=== PATIENT | male | born 1940 | race Caucasian/White ===

== ENCOUNTER 2023-03-05 14:54 | Outpatient (OUT) | payer MEDICARE, OTHER, SELFPAY ==
[2023-03-05 15:16] LABS: Basophils Percent Auto 0.5 % (0.2-2.0); Eosinophils Absolute Auto 0.5 10^3/uL (0.0-0.7); Eosinophils Percent Auto 7.5 % (0.9-7.0); Hematocrit 42.7 % (42.0-54.0); Hemoglobin 13.6 g/dL (14.0-18.0); Immature Granulocytes Abs Auto 0.02 10^3/uL (0.00-0.03); Immature Granulocytes Pct Auto 0.3 % (0.0-0.5); Lymphocytes Absolute Auto 1.5 10^3/uL (1.2-3.8); Lymphocytes Percent Auto 23.6 % (20.5-60.0); Mean Corpuscular HGB Conc 31.9 g/dL (29.9-35.2); Mean Corpuscular Hemoglobin 29.4 pg (25.9-34.0); Mean Corpuscular Volume 92.2 fL (80.0-94.0); Mean Platelet Volume 10.3 fL (9.5-13.5); Monocytes Absolute Auto 0.6 10^3/uL (0.3-0.8); Monocytes Percent Auto 9.3 % (1.7-12.0); Neutrophils Absolute Auto 3.7 10^3/uL (1.4-6.5); Neutrophils Percent Auto 58.8 % (43.0-75.0); Platelet Count 148 10^3/uL (150-450); Red Blood Count 4.63 10^6/uL (4.70-6.10); Red Cell Distribution Width 13.6 % (11.0-15.0); White Blood Count 6.2 10^3/uL (4.0-11.0)
[2023-03-05 16:04] LABS: Alanine Aminotransferase 23 U/L (16-63); Albumin Globulin Ratio 0.8; Albumin Level 3.3 g/dL (3.4-5.0); Alkaline Phosphatase 117 U/L (46-116); Anion Gap 14.6; Aspartate Amino Transferase 26 U/L (15-37); BUN Creatinine Ratio 18.3; Bilirubin Total 0.7 mg/dL (0.2-1.0); Calcium 9.4 mg/dL (8.5-10.1); Carbon Dioxide 25.9 mmol/L (21.0-32.0); Chloride 103 mmol/L (98-107); Estimated GFR (African America 43 (>=60); Estimated GFR (Non-African Ame 35 (>=60); Globulin 4.2 g/dL; Glucose 100 mg/dL (74-106); Potassium 5.5 mmol/L (3.5-5.1); Sodium 138 mmol/L (136-145); Total Protein 7.5 g/dL (6.4-8.2)
[2023-03-05 16:13] LABS: Chol HDL Ratio 2.5; Cholesterol 130 mg/dL (<=200); Free T3 3.08 pg/mL (2.18-3.98); HDL Cholesterol 53 mg/dL (40-60); Thyroid Stimulating Hormone 0.254 uIU/mL (0.358-3.740); Triglycerides 75 mg/dL (<=150)
== END 2023-03-05 14:55 ==
LOC: LAB 14:58
PROVIDERS: PCP Family Medicine; Visit Provider Family Medicine
DX: E11.9 Type 2 diabetes mellitus without complications (principal); E78.5 Hyperlipidemia, unspecified; R53.83 Other fatigue; Z79.899 Other long term (current) drug therapy
CPT/HCPCS: 36415; 80053; 80061; 84436; 84443; 84481; 85025

== ENCOUNTER 2023-05-31 14:37 | Outpatient (OUT) | payer MEDICARE, OTHER, SELFPAY ==
[2023-05-31 15:17] LABS: Estimated Average Glucose 117 mg/dL; Glycohemoglobin A1C 5.7 % (4.5-6.2)
[2023-05-31 15:25] LABS: Basophils Absolute Auto 0.1 10^3/uL (0.0-0.1); Basophils Percent Auto 0.7 % (0.2-2.0); Eosinophils Absolute Auto 0.3 10^3/uL (0.0-0.7); Eosinophils Percent Auto 4.6 % (0.9-7.0); Hematocrit 39.9 % (42.0-54.0); Hemoglobin 12.3 g/dL (14.0-18.0); Immature Granulocytes Abs Auto 0.03 10^3/uL (0.00-0.03); Immature Granulocytes Pct Auto 0.4 % (0.0-0.5); Lymphocytes Absolute Auto 1.4 10^3/uL (1.2-3.8); Lymphocytes Percent Auto 20.4 % (20.5-60.0); Mean Corpuscular HGB Conc 30.8 g/dL (29.9-35.2); Mean Corpuscular Hemoglobin 29.1 pg (25.9-34.0); Mean Corpuscular Volume 94.5 fL (80.0-94.0); Mean Platelet Volume 10.6 fL (9.5-13.5); Monocytes Absolute Auto 0.6 10^3/uL (0.3-0.8); Monocytes Percent Auto 9.2 % (1.7-12.0); Neutrophils Absolute Auto 4.4 10^3/uL (1.4-6.5); Neutrophils Percent Auto 64.7 % (43.0-75.0); Platelet Count 161 10^3/uL (150-450); Red Blood Count 4.22 10^6/uL (4.70-6.10); Red Cell Distribution Width 14.5 % (11.0-15.0); White Blood Count 6.8 10^3/uL (4.0-11.0)
[2023-05-31 15:40] LABS: Free T4 0.72 ng/dL (0.76-1.46)
[2023-05-31 15:41] LABS: Alanine Aminotransferase 20 U/L (16-63); Albumin Globulin Ratio 0.9; Albumin Level 3.5 g/dL (3.4-5.0); Alkaline Phosphatase 107 U/L (46-116); Anion Gap 9.3; Aspartate Amino Transferase 22 U/L (15-37); BUN Creatinine Ratio 18.8; Bilirubin Total 0.7 mg/dL (0.2-1.0); Calcium 9.5 mg/dL (8.5-10.1); Carbon Dioxide 28.6 mmol/L (21.0-32.0); Chloride 105 mmol/L (98-107); Estimated GFR (African America 36 (>=60); Estimated GFR (Non-African Ame 30 (>=60); Globulin 3.8 g/dL; Glucose 99 mg/dL (74-106); Potassium 4.9 mmol/L (3.5-5.1); Sodium 138 mmol/L (136-145); Thyroid Stimulating Hormone 0.551 uIU/mL (0.358-3.740); Total Protein 7.3 g/dL (6.4-8.2)
== END 2023-05-31 14:38 | disposition home or self-care (01) ==
LOC: LAB 14:39
PROVIDERS: PCP Family Medicine; Visit Provider Family Medicine
DX: E87.5 Hyperkalemia (principal); C61 Malignant neoplasm of prostate; R73.09 Other abnormal glucose; Q75.2 Hypertelorism; I11.0 Hypertensive heart disease with heart failure; I50.30 Unspecified diastolic (congestive) heart failure
CPT/HCPCS: 36415; 80053; 83036; 83880; 84436; 84439; 84443; 85025

== ENCOUNTER 2023-07-18 16:32 | Outpatient (OUT) | payer MEDICARE, OTHER, SELFPAY ==
[2023-07-18 17:30] LABS: Anion Gap 12.1; BUN Creatinine Ratio 13.1; Carbon Dioxide 26.9 mmol/L (21.0-32.0); Chloride 104 mmol/L (98-107); Estimated GFR (African America 35 (>=60); Estimated GFR (Non-African Ame 29 (>=60); Glucose 101 mg/dL (74-106); Sodium 138 mmol/L (136-145)
== END 2023-07-18 16:33 | disposition home or self-care (01) ==
PROVIDERS: PCP Family Medicine; Visit Provider Family Medicine
DX: N18.1 Chronic kidney disease, stage 1 (principal)
CPT/HCPCS: 36415; 80048

== ENCOUNTER 2023-07-18 16:36 | Outpatient (OUT) | payer MEDICARE, OTHER, SELFPAY ==
[2023-07-18 17:40] LABS: Free T4 0.68 ng/dL (0.76-1.46)
[2023-07-18 17:47] LABS: Free T3 2.71 pg/mL (2.18-3.98); Thyroid Stimulating Hormone 0.897 uIU/mL (0.358-3.740)
== END 2023-07-18 16:37 | disposition home or self-care (01) ==
PROVIDERS: PCP Family Medicine
DX: E06.3 Autoimmune thyroiditis (principal); N18.1 Chronic kidney disease, stage 1
CPT/HCPCS: 36415; 80048; 84439; 84443; 84481

== ENCOUNTER 2023-08-19 16:18 | Outpatient (OUT) | payer MEDICARE, OTHER, SELFPAY ==
[2023-08-19 17:02] LABS: Basophils Percent Auto 0.4 % (0.2-2.0); Eosinophils Absolute Auto 0.3 10^3/uL (0.0-0.7); Eosinophils Percent Auto 4.7 % (0.9-7.0); Hematocrit 38.3 % (42.0-54.0); Hemoglobin 11.9 g/dL (14.0-18.0); Lymphocytes Absolute Auto 1.3 10^3/uL (1.2-3.8); Lymphocytes Percent Auto 23.2 % (20.5-60.0); Mean Corpuscular HGB Conc 31.1 g/dL (29.9-35.2); Mean Corpuscular Volume 93.4 fL (80.0-94.0); Mean Platelet Volume 10.7 fL (9.5-13.5); Monocytes Absolute Auto 0.6 10^3/uL (0.3-0.8); Neutrophils Absolute Auto 3.4 10^3/uL (1.4-6.5); Neutrophils Percent Auto 61.7 % (43.0-75.0); Platelet Count 145 10^3/uL (150-450); Red Cell Distribution Width 14.6 % (11.0-15.0); White Blood Count 5.5 10^3/uL (4.0-11.0)
--- NOTE | 2023-08-19 17:22 | XR_ITS ---
[facility] [id number] Patient Name: LANDEN ROTH MRN: [id number] date: 1940 Sex: M Assigned Patient Location: LAB Current Patient Location: Accession/Order Number: [id number] Exam Date: 08/19/2023 17:15 Report Date: 08/20/2023 09:21 At the request of: FRANCISCA THOMPSON Procedure: XR lumbar spine 2-3V EXAM: XR lumbar spine 2-3V HISTORY: e87.5 hyperkalemia COMPARISON: None. TECHNIQUE: 2 views Findings/impression: Retrolisthesis of L3 over L4 by 3 mm and L4 over L5 by 3 mm. Maintained vertebral body heights. Multilevel endplate degenerative changes, disc disease, and anterior spurring of L4 to S1. No acute fracture. Scattered calcified atherosclerotic disease of aorta. Probable infrarenal aortic aneurysm measuring up to 4.4 cm in diameter. Electronically authenticated by: SHERIE ROBLES Date: 08/20/2023 09:21
[2023-08-19 17:26] LABS: Alanine Aminotransferase 9 U/L (16-63); Albumin Globulin Ratio 0.9; Albumin Level 3.5 g/dL (3.4-5.0); Alkaline Phosphatase 110 U/L (46-116); Anion Gap 14.3; Aspartate Amino Transferase 19 U/L (15-37); BUN Creatinine Ratio 14.5; Bilirubin Total 1.1 mg/dL (0.2-1.0); Calcium 9.5 mg/dL (8.5-10.1); Chloride 104 mmol/L (98-107); Chol HDL Ratio 2.5; Cholesterol 115 mg/dL (<=200); Estimated GFR (African America 39 (>=60); Estimated GFR (Non-African Ame 32 (>=60); Glucose 100 mg/dL (74-106); HDL Cholesterol 46 mg/dL (40-60); LDL Cholesterol Calculated 58.6 mg/dL; Magnesium 1.9 mg/dL (1.8-2.4); Potassium 5.3 mmol/L (3.5-5.1); Sodium 138 mmol/L (136-145); Total Protein 7.5 g/dL (6.4-8.2); Triglycerides 52 mg/dL (<=150); VLDL CHOLESTEROL 10.4 mg/dL
[2023-08-28 22:11] LABS: Copper Level 143 ug/dL (69-132)
== END 2023-08-19 16:19 | disposition home or self-care (01) ==
PROVIDERS: PCP Family Medicine; Visit Provider Family Medicine
DX: E87.5 Hyperkalemia (principal); F32.9 Major depressive disorder, single episode, unspecified; E55.9 Vitamin D deficiency, unspecified; D64.9 Anemia, unspecified; E78.5 Hyperlipidemia, unspecified; M51.36 Other intervertebral disc degeneration, lumbar region
CPT/HCPCS: 36415; 72100; 80053; 80061; 82306; 82525; 82607; 82728; 82746; 83540; 83735; 85025

== ENCOUNTER 2023-09-26 13:57 | Outpatient (OUT) | payer MEDICARE, OTHER, SELFPAY ==
--- OUTSIDE RECORDS SUMMARY | 2023-09-26 14:05 | XMS_ITS | CCD ---
Author Name Unknown Address [address] [place] [address] Organization [facility] Care Team Providers Care Soap Mixer Name Role Phone Francisca Thompson MD Primary Care Provider [phone] Tom Gonzalez Unavailable SHARON HOOKS Referring Unavailable MARLENE KRISHNA Attending Unavailable NORMA ARORA Admitting Unavailable FRANCISCA THOMPSON Primary Care Unavailable Francisca Thompson MD Primary Care Provider [phone] Tom Gonzalez Unavailable MALAIKA FAUST Attending Unavailable MALAIKA FAUST Attending Unavailable Francisca Thompson MD Primary Care Provider [phone] Tom Gonzalez Unavailable [phone] DR FRANCISCA AYERS Primary Care Unavailable MALAIKA FAUST Consulting Unavailable MALAIKA FAUST Admitting Unavailable MALAIKA FAUST Attending Unavailable DONNA Qureshi, DR ESPINOSA Primary Care Unavailable DONNA Qureshi, DR ESPINOSA Admitting Unavailable DONNA Qureshi, DR ESPINOSA Consulting Unavailable DONNA Qureshi, DR ESPINOSA Attending Unavailable SHARON VAZQUEZ Attending Unavailable DONNA Qureshi, DR ESPINOSA Primary Care Unavailable JIM, DR AYANA Poe Consulting Unavailable SHARON VAZQUEZ Admitting Unavailable LINDA JUNIOR Consulting Unavailable SHARON VAZQUEZ Consulting Unavailable ARVIND, DR LUTZ Consulting Unavailable ARVIND, DR LUTZ Attending Unavailable DONNA Qureshi, DR ESPINOSA Primary Care Unavailable ARVIND, DR LUTZ Admitting Unavailable JIM, DR AYANA Poe Consulting Unavailable MISC, DR DURAN Admitting Unavailable MISC, DR DURAN Consulting Unavailable DONNA Qureshi, DR ESPINOSA Primary Care Unavailable MISC, DR DURAN Attending Unavailable DONNA Qureshi, DR ESPINOSA Primary Care Unavailable DONNA Qureshi, DR ESPINOSA Admitting Unavailable HOY ., DR ESPINOSA Consulting Unavailable HOY ., DR ESPINOSA Attending Unavailable ENGELER, DR MALAIKA Agee Consulting Unavailable ENGELER, DR MALAIKA Agee Attending Unavailable HOY ., DR ESPINOSA Primary Care Unavailable ENGELER, DR MALAIKA Agee Admitting Unavailable HOY ., DR ESPINOSA Primary Care Unavailable HOY ., DR ESPINOSA Consulting Unavailable MOUKARBEL, MALAIKA Admitting Unavailable MOUKARBEL, MALAIKA Attending Unavailable MOUKARBEL, MALAIKA Consulting Unavailable MOUKARBEL, MALAIKA Admitting Unavailable HOY ., DR ESPINOSA Primary Care Unavailable MOUKARBEL, MALAIKA Consulting Unavailable MOUKARBEL, MALAIKA Attending Unavailable MOUKARBEL, MALAIKA Admitting Unavailable HOY ., DR ESPINOSA Primary Care Unavailable MOUKARBEL, MALAIKA Consulting Unavailable MOUKARBEL, MALAIKA Attending Unavailable MOUKARBEL, MALAIKA Admitting Unavailable HOY ., DR ESPINOSA Primary Care Unavailable MOUKARBEL, MALAIKA Consulting Unavailable MOUKARBEL, MALAIKA Attending Unavailable HOY ., DR ESPINOSA Primary Care Unavailable MISC, DR DURAN Attending Unavailable MISC, DR DURAN Admitting Unavailable MISC, DR DURAN Consulting Unavailable HOY ., DR ESPINOSA Primary Care Unavailable HOY ., DR ESPINOSA Consulting Unavailable HOY ., DR ESPINOSA Attending Unavailable HOY ., DR ESPINOSA Admitting Unavailable HOY ., DR ESPINOSA Primary Care Unavailable HOY ., DR ESPINOSA Consulting Unavailable HOY ., DR ESPINOSA Admvonnie Unavailable HOY ., DR ESPINOSA Attending Unavailable MISC, DR DURAN Consulting Unavailable HOY ., DR ESPINOSA Primary Care Unavailable HOY ., DR ESPINOSA Admitting Unavailable HOY ., DR ESPINOSA Attending Unavailable HOY ., DR ESPINOSA Primary Care Unavailable MISC, DR DURAN Attending Unavailable MISC, DR DURAN Admitting Unavailable Andreas Del Cid MD Unavailable Tom Gonzalez Unavailable [phone] Andreas Del Cid MD Unavailable HOY, FRANCISCA M Primary Care Unavailable HOY, FRANCISCA M Primary Care Unavailable Yung KIM Attending Unavailable ANDREAS DEL CID Referring Unavailable HOY, FRANCISCA M Primary Care Unavailable ANDREAS DEL CID Referring Unavailable HOY, FRANCISCA M Primary Care Unavailable ANDREAS DEL CID Referring Unavailable HOY, FRANCISCA M Primary Care Unavailable ANDREAS DEL CID Attending Unavailable ANDREAS DEL CID Referring Unavailable HOY, FRANCISCA M Primary Care Unavailable HOY, FRANCISCA M Primary Care Unavailable ANDREAS DEL CID Referring Unavailable HOY, FRANCISCA M Primary Care Unavailable HOY, FRANCISCA M Primary Care Unavailable Yung KIM Attending Unavailable HOY, FRANCISCA M Primary Care Unavailable ANDREAS DEL CID Referring Unavailable HOY, FRANCISCA M Primary Care Unavailable ANDREAS DEL CID Referring Unavailable CREANDREAS WALTER Referring Unavailable HOY, FRANCISCA M Primary Care Unavailable HOY, FRANCISCA M Referring Unavailable CREANDREAS WALTER Attending Unavailable HOY, FRANCISCA M Primary Care Unavailable HOY, FRANCISCA M Primary Care Unavailable RADHA, VIRGIL Referring Unavailable ALISON WELLER Attending Unavailable Allergies Allergy Classification Reported Allergen(s) Allergy Type Date of Onset Reaction(s) Facility (20 sources) Adhesive Tape; Translations: [ADHESIVE TAPE (ROSINS)] Allergy to substance 06-16-2012 [facility] Work Phone: (20 sources) Latex; Translations: [LATEX] Drug Allergy 03-13-2019 [facility] (3 sources) Latex Drug allergy (disorder) 11-04-2013 [facility] Medications Current Medications Medication Drug Class(es) Dates Sig (Normalized) Sig (Original) dapagliflozin 10 mg oral tablet (20 sources) Sodium-Glucose Cotransporter 2 Inhibitor Start: 05-23-2022 End: 12-03-2023 take 1 tablet by mouth once daily FARXIGA 10 mg tablet Take 1 tablet by mouth once daily. 90 tablet 3 12/03/2022 12/03/2023 Active Comment on above: Take 10 mg by mouth once daily. Take 1 tablet by anuja th once daily. lisinopril 5 mg oral tablet (20 sources) Angiotensin Converting Enzyme Inhibitor Start: 06-13-2022 End: 08-22-2024 take 1 tablet by mouth once daily lisinopril (ZESTRIL) 5 mg tablet Take 1 tablet by mouth once daily. 90 tablet 3 08/23/2023 08/22/2024 Active Start: 04-11-2021 End: 06-06-2022 take 1 tablet by mouth once daily at bedtime lisinopril (ZESTRIL, PRINIVIL) 5 mg tablet Take 1 tablet by mouth daily at bedtime. 90 tablet 1 04/11/2021 06/06/2022 Discontinued (Course of therapy completed) Comment on above: Take 1 tablet by anuja th daily at bedtime. Take 1 tablet by anuja th once daily. perflutren lipid microspheres 1.3 mL in NaCl (PF) 0.9% 10 mL injection (DEFINITY) (20 sources) Start: 06-06-2022 End: 09-05-2023 perflutren lipid microspheres 1.3 mL in NaCl (PF) 0.9% 10 mL injection (DEFINITY) Start: 06-15-2021 End: 09-14-2022 perflutren lipid microsphere s 1.3 mL in NaCl (PF) 0.9% 10 mL injection (DEFINITY) 125 ml sodium chloride 9 mg/ ml prefilled syringe (20 sources) Start: 06-15-2021 End: 09-05-2023 sodium chloride 0.9 % (flush ) 10 mL (BD POSIFLUSH) Completed/Discontinued Medications Medication Drug Class(es) Dates Sig (Normalized) Sig (Original) acetaminophen 325 mg oral tablet (8 sources) Start: 07-03-2012 End: 06-06-2022 take 325-650 mg by mouth every four hours as needed acetaminophen 325 mg tablet Take 1-2 tablets by mouth every 4 hours as needed. 0 07/03/2012 06/06/2022 Discontinued Comment on above: Take 1-2 tablets by mouth every 4 hours as needed. apixaban 5 mg oral tablet (8 sources) Factor Xa Inhibitor Start: 08-24-2021 End: 06-06-2022 apixaban (ELIQUIS) 5 mg tab(s) Take 5 mg by mouth. 0 08/24/2021 06/06/2022 Discontinued Comment on above: Take 5 mg by mouth. Ascorbic Acid (20 sources) Vitamin C End: 10-25-2022 ascorbic acid (VITAMIN C ORAL) Take by mouth as needed. 0 10/25/2022 Discontinued (Course of therapy completed) ascorbic acid (V ITAMIN C ORAL) Take by mouth. 0 Active Comment on above: Take by mouth. Take by mouth as nee ded. aspirin 81 mg delayed release oral tablet (20 sources) Platelet Aggregation Inhibitor, Nonsteroidal Anti-inflammatory Drug take 1 tablet by mouth once daily aspirin, enteric coated (ASPIRIN, ENTERIC COATED) 81 mg EC tablet Take 1 tablet by mouth once daily. 0 Active Comment on above: Take 1 tablet by anuja th once daily. atorvastatin 40 mg oral tablet (20 sources) HMG-CoA Reductase Inhibitor Start: 02-19-20 19 take 1 tablet by mouth once daily at bedtime atorvastatin (LIPITOR) 40 mg tablet Take 40 mg by mouth daily at bedtime. 2 02/18/2019 Active Comment on above: Take 40 mg by mouth daily at bedtime. bicalutamide 50 mg oral tablet (8 sources) Androgen Receptor Inhibitor Start: 12-01-19 22 End: 06-06-20 22 take 1 tablet by mouth once daily bicalutamide (CASODEX) 50 mg tablet Take 1 tablet by mouth once daily. 30 tablet 2 11/30/2021 06/06/2022 Discontinued Comment on above: Take 1 tablet by anuja th once daily. cholecalciferol 0.025 mg oral capsule (20 sources) Vitamin D End: 10-25-19 23 Cholecalciferol, Vitamin D3, 25 mcg (1,000 unit) cap Take 1,000 Units by mouth as needed. 0 Active Cholecalciferol, Vitamin D3, 25 mcg (1,000 unit) cap Take 1,000 Units by mouth once daily. 2,000 0 Active Comment on above: Take 1,000 Units by mouth once daily. 2,000 Take 1,000 Units by mouth as needed. 2,000 Take 1,000 Units by mouth as needed. ezetimibe 10 mg oral tablet (20 sources) Dietary Cholesterol Absorption Inhibitor take 1 tablet by mouth once daily ezetimibe (ZETIA) 10 mg tablet Take 10 mg by mouth once daily. 0 Active Comment on above: Take 10 mg by mouth once daily. ferrous sulfate 325 mg oral tablet (11 sources) Start: 2 End: 3 take 1 tablet by mouth once daily FEROSUL 325 mg (65 mg iron) tablet Take 1 tablet by mouth once daily. 0 05/15/2022 10/02/2022 Discontinued (Course of therapy completed) Start: 05-15-2022 take 1 tablet by anuja th twice daily FEROSUL 325 mg (65 mg iron) tablet Take 1 tablet by mouth twice daily. 0 05/15/2022 Active Comment on above: Take 1 tablet by anuja th twice daily. Take 1 tablet by anuja th once daily. 24 hr metoprolol succinate 25 mg extended release oral tablet (20 sources) beta-Adrenergic Jasbir Start: 06-06-2022 End: 06-06-2023 take 1 tablet by mouth once daily metoprolol succinate ER (TOPROL XL) 25 mg 24 hr tablet Take 1 tablet by mouth once daily. 90 tablet 3 06/06/2022 Active Start: 06-01-2022 End: 06-06-2022 take 1 tablet by mouth once daily metoprolol tartrate, short acting, (LOPRESSOR) 25 mg tablet Take 1 tablet by mouth once daily. 0 06/01/2022 06/06/2022 Discontinued (Course of therapy completed) Comment on above: Take 25 mg by mouth once daily. Take 1 tablet by anuja th once daily. nitroglycerin 0.4 mg sublingual tablet (3 sources) Nitrate Vasodilator nitroglyceri n sublingual (NITROQUICK) 0.4 mg SL tablet as directed. 0 Active Comment on above: as directed. sildenafil 100 mg oral tablet (4 sources) Phosphodiesterase 5 Inhibitor Start: sildenafil (VIAGRA) 100 mg tablet Take 100 mg by mouth as needed. 0 12/07/2019 Active Comment on above: Take 100 mg by mouth as needed. spironolactone 25 mg oral tablet (20 sources) Aldosterone Antagonist Start: End: spironolactone (ALDACTONE) 25 mg tablet Take 12.5 mg by mouth once daily. 0 06/01/2022 04/26/2023 Discontinued (Discontinued by another Health Care Provider) Comment on above: Take 12.5 mg by mout h once daily. therapeutic multivitamin w/ iron (THERAGRAN-M) 27-0.4 mg tablet (17 sources) take 1 tablet by mouth once daily therapeutic multivitamin w/ iron (THERAGRAN-M) 27-0.4 mg tablet Take 1 tablet by mouth once daily. 0 Active Comment on above: Take 1 tablet by anuja th once daily. thyroid (mcc) 15 mg oral tablet (20 sources) Start: 023 GRADUATE RESEARCH ASSISTANT 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 0 03/26/2023 Active thyroid, pork, 6 0 mg tablet Take 75 mg by mouth once daily. 0 Active take 1 tablet by mouth once david y thyroid, pork, 60 mg tablet Take 60 mg by mouth once daily. 0 Active take 1 tablet by mouth once david y ARMOUR THYROID 90 mg tab Take 90 mg by mouth once daily. 0 Active Comment on above: Take 90 mg by mouth once daily. Take 60 mg by mouth once daily. Take 75 mg by mouth once daily. as directed. torsemide 10 mg oral tablet (20 sources) Loop Diuretic Start: 07-19-2022 End: 07-19-2023 take 1 tablet by mouth once daily torsemide (DEMADEX) 10 mg tablet Take 1 tablet by mouth once daily. 90 tablet 3 07/19/2022 Active Start: 11-08-2020 End: 06-06-2022 take 1 tablet by mouth once daily torsemide (DEMADEX) 10 mg tablet Take 1 tablet by mouth once daily. 90 tablet 1 11/08/2020 06/06/2022 Discontinued Comment on above: Take 1 tablet by anuja th once daily. Turmeric extract (20 sources) End: 10-25-2022 TURMERIC ORAL Take by mouth as needed. 0 10/25/2022 Discontinued (Course of therapy completed) TURMERIC ORAL Ta ke by mouth. 0 Active Comment on above: Take by mouth. Take by mouth as nee ded. ubidecarenone 10 mg oral capsule (20 sources) take 1 capsule by mouth once daily ubidecarenone Q-10 (COENZYME Q-10) 10 mg cap Take 10 mg by mouth once daily. 0 Active Comment on above: Take 10 mg by mouth once daily. Zinc (20 sources) End: ZINC ORAL Take by mouth. 0 10/25/2022 Discontinued (Course of therapy completed) ZINC ORAL Take b y mouth. 0 Active Comment on above: Take by mouth. Problems Active Problems Problem Classification Problem Date Documented Date Episodic/Chronic Acute cerebrovascular disease (18 sources) Cerebrovascular accident; Translations: [Other cerebral infarction] Onset: 09-03-2022 Chronic Cancer of prostate (20 sources) Malignant tumor of prostate; Translations: [Malignant neoplasm of prostate] Onset: 10-09-2017 Chronic Cardiac dysrhythmias (20 sources) Atrial fibrillation and flutter ; Translations: [Atrial fib/flutter, transient] Onset: 05-03-2012 Chronic Chronic kidney disease (1 source) Chronic kidney disease, unspecified; Translations: [CHRONIC KIDNEY DISEASE UNSPECIFIED] Onset: 05-18-2022 Chronic Complication of device; implant or graft (20 sources) Arteriosclerosis of coronary artery bypass graft; Translations: [Atherosclerosis of coronary artery bypass graft(s) without angina pectoris] Onset: 11-17-2012 Chronic Conduction disorders (1 source) Presence of automatic (implantable) cardiac defibrillator; Translations: [PRESENCE AUTO IMPLANT CARDIAC DEFIB] Onset: 07-10-2022 Chronic Congestive heart failure; nonhypertensive (20 sources) Acute systolic heart failure; Translations: [Acute systolic (congestive) heart failure] Onset: 05-01-2012 Chronic Coronary atherosclerosis and other heart disease (20 sources) Coronary atherosclerosis; Translations: [Atherosclerotic heart disease of [place] coronary artery without angina pectoris] Onset: 04-28-2012 09-11-2021 Chronic Diabetes mellitus with complications (6 sources) Type 2 diabetes mellitus; Translations: [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 kidney disease] Onset: 04-26-2023 04-26-2023 Chronic Disorders of lipid metabolism (20 sources) Hyperlipidemia; Translations: [Hyperlipidemia, unspecified] Onset: 04-28-2012 Chronic Esophageal disorders (1 source) Gastro-esophageal reflux disease without esophagitis; Translations: [GERD WITHOUT ESOPHAGITIS] Onset: 05-18-2022 Chronic Essential hypertension (1 source) Essential (primary) hypertension; Translations: [Essential hypertension] Onset: 06-12-2023 Chronic Heart valve disorders (1 source) Mitral valve regurgitation; Translations: [Nonrheumatic mitral (valve) insufficiency] Chronic Hypertension with complications and secondary hypertension (5 sources) Hypertensive heart disease with heart failure; Translations: [HTN HEART DISEASE W/HEART FAIL] Onset: 06-27-2022 Chronic Occlusion or stenosis of precerebral arteries (20 sources) Carotid artery stenosis; Translations: [Occlusion and stenosis of unspecified carotid artery] Onset: 05-01-2012 09-11-2021 Chronic Other screening for suspected conditions (not mental disorders or infectious disease) (1 source) Blood chemistry abnormal; Translations: [Abnormal finding of blood chemistry, unspecified] Episodic Peripheral and visceral atherosclerosis (20 sources) Peripheral vascular disease; Translations: [Peripheral vascular disease, unspecified] Onset: 11-17-2012 04-26-2023 Chronic Thyroid disorders (6 sources) Hypothyroidism; Translations: [Hypothyroidism, unspecified] Onset: 05-18-2022 Chronic Unclassified (20 sources) SUMMARY Onset: 04-28-2012 Unclassified (20 sources) Sweating; Translations: [Sweating] Onset: 11-17-2012 Unclassified (1 source) CONTACT W/AND (SUSP) EXPOS COVID-19; Translations: [CONTACT W/AND (SUSP) EXPOS COVID-19] Onset: 05-18-2022 Past or Other Problems Problem Classification Problem Date Documented Da te Episodic/Chronic Acute and unspecified renal failure (1 source) Acute kidney failure, unspecified; Translations: [ACUTE KIDNEY FAILURE UNSPECIFIED] Onset: 06-28-2022 Episodic Coronary atherosclerosis and other heart disease (3 sources) Presence of aortocoronary bypass graft; Translations: [Presence of coronary angioplasty implant and graft] Onset: 05-15-2022 Episodic Deficiency and other anemia (4 sources) Anemia, unspecified; Translations: [ANEMIA UNSPECIFIED] Onset: 05-14-2022 Episodic Fluid and electrolyte disorders (1 source) Dehydration; Translations: [DEHYDRATION] Onset: 05-18-2022 Episodic Malaise and fatigue (8 sources) Other fatigue; Translations: [Weakness] Onset: 05-15-2022 Episodic Other aftercare (1 source) Other custodial (current) drug therapy; Translations: [OTH POWERHOUSE MECHANIC CURRENT DRUG THERAPY] Onset: 05-18-2022 Episodic Other aftercare (1 source) correction (current) use of anticoagulants; Translations: [POWERHOUSE MECHANIC CURRNT USE ANTICOAGULANTS] Onset: 05-18-2022 Episodic Other circulatory disease (3 sources) Personal history of transient ischemic attack (TIA), and cerebral infarction without residual deficits; Translations: [Personal history of transient ischemic attack (TIA), and cerebral infarction without residual deficits] Onset: 07-10-2022 Episodic Other hematologic conditions (1 source) Other specified abnormalities of plasma proteins; Translations: [OTH SPEC ABNORM PLASMA PROTEINS] Onset: 05-18-2022 Episodic Screening and history of mental health and substance abuse codes (1 source) Personal history of nicotine dependence; Translations: [PERSONAL HISTORY OF NICOTINE DEPEND] Onset: 05-18-2022 Episodic Syncope (20 sources) Syncope; Translations: [Syncope and collapse] Onset: 03-18-2019 03-18-2019 Episodic Results Test Name Value Interpretation Reference Range Facility [facility] 08-27-2023 [facility] Telephone (CARIMN) JOSÉ MIGUEL ROTH JR. ([id number]) 1940 M Date Time Provider Department 08/27/23 VIRGIL GARCIA During your visit today, we recorded the following information about you: Glory Suejakob 08/27/2023 11:22 AM Signed Left a message with the patient regarding the cancellation of 10/22/2023 with . Informed the patient of the new scheduled appointment on 10/29/2023 with . Allergies As of Date: 08/27/2023 Noted Allergy Reaction LATEX 03/13/2019 2 - Rash ADHESIVE TAPE (ROSINS) 06/16/2012 2 - Rash Date Reviewed: 04/26/2023 Reviewed by: Jennifer Conway MA - Fully Assessed Reason for Visit: Appointment [[id number]] Cmt: Left a message with the patient regarding the cancellation of 10/22/2023 with . Informed the patient of the new scheduled appointment on 10/29/2023 with . Prescriptions as of 08/27/2023 - lisinopril (ZESTRIL) 5 mg tablet Take 1 tablet by mouth once daily. - Cholecalciferol, Vitamin D3, 25 mcg (1,000 unit) cap Take 1,000 Units by mouth as needed. - nitroglycerin sublingual (NITROQUICK) 0.4 mg SL tablet as directed. - GRADUATE RESEARCH ASSISTANT 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 - FARXIGA 10 mg tablet Take 1 tablet by mouth once daily. - therapeutic multivitamin w/ iron (THERAGRAN-M) 27-0.4 mg tablet Take 1 tablet by mouth once daily. - torsemide (DEMADEX) 10 mg tablet Take 1 tablet by mouth once daily. - aspirin, enteric coated (ASPIRIN, ENTERIC COATED) 81 mg EC tablet Take 1 tablet by mouth once daily. - ezetimibe (ZETIA) 10 mg tablet Take 10 mg by mouth once daily. - metoprolol succinate ER (TOPROL XL) 25 mg 24 hr tablet Take 1 tablet by mouth once daily. - ubidecarenone Q-10 (COENZYME Q-10) 10 mg cap Take 10 mg by mouth once daily. - thyroid, pork, 60 mg tablet Take 75 mg by mouth once daily. - atorvastatin (LIPITOR) 40 mg tablet Take 40 mg by mouth daily at bedtime. Facility-Administered Medications as of 08/27/2023 - perflutren lipid microspheres 1.3 mL in NaCl (PF) 0.9% 10 mL injection (DEFINITY) - sodium chloride 0.9 % (flush) 10 mL (BD POSIFLUSH) Meds Comments as of 08/04/2012: Medications verbally confirmed. Guy Fair LPN August 04, 2012 Problem List As Of Date 08/27/[address] elevation myocardial infarction (STEMI) of t*04/28/2012 05/05/2012 Atherosclerotic heart disease of [place] coronar* SUMMARY [V999.95] 04/28/2012 Wide-complex tachycardia [R00.0] 04/28/2012 05/05/2012 Pre-op evaluation [Z01.818] 04/28/2012 05/01/2012 Hyperlipidemia [E78.5] 04/28/2012 Preop testing [Z01.818] 04/29/2012 Stress hyperglycemia [R73.9] 05/01/2012 05/06/2012 Mechanically assisted ventilation [Z99.11] 05/01/2012 05/02/2012 Hypotension [I95.9] 05/01/2012 05/03/2012 Heart failure, acute systolic (HCC) [I50.21] 05/01/2012 Thrombocytopenia (HCC) [D69.6] 05/01/2012 05/05/2012 Post-operative pain [G89.18] 05/01/2012 05/06/2012 Carotid stenosis [I65.29] 05/01/2012 Atrial fib/flutter, transient 05/03/2012 Occlusion and stenosis of carotid artery withou*06/16/2012 S/P CABG (coronary artery bypass graft) [Z95.1] 06/17/2012 Sweating [YCO3829] 11/17/2012 CAD (coronary artery disease) of artery bypass *11/17/2012 Systolic heart failure (HCC) [I50.20] 11/17/2012 PVD (peripheral vascular disease) ([facility]) [I73.9] 11/17/2012 Prostate cancer ([facility]) [C61] 10/09/2017 Syncope [R55] 03/18/2019 Stroke (cerebrum) ([facility]) [I63.9] 09/03/2022 Chronic combined systolic and diastolic congest*09/03/2022 Carotid stenosis, asymptomatic, bilateral [I65.*09/03/2022 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 *04/26/2023 Encounter Status:Closed by CARINA SUE on 08/27/23 [facility] CNOVon 04-26-2023 CNOV Office Visit (CARIMN ) JOSÉ MIGUEL ROTH JR. ([id number]) 1940 Date Time Provider Department 04/26/23 3:00 PM ANDREAS DEL CID During your visit today, we recorded the following information about you: Pulse Respiration Blood pressure Weight 73/minute 12/minute 116/62 83.9 kg Height 1.829 m Andreas Del Cid MD 04/27/2023 12:57 PM [facility] [place] Jose Martin Silva Department of Cardiovascular Medicine SECTION OF CARDIOVASCULAR IMAGING OUTPATIENT VISIT DATE April 26, 2023 OUTPATIENT VISIT TYPE ESTABLISHED PRIMARY CARE PHYSICIAN: Francisca Thompson [address] [place] [address] REFERRING PHYSICIAN: Francisca Thompson [address] [facility] [phone] CHIEF COMPLAINT: Follow up HISTORY OF PRESENT ILLNESS: Mr. Roth is a 83 year old male who presents today for follow-up visit. His history is notable for: 1. CAD, h/o posterior STEMI c severe LAD disease, occluded Cx and RCA, s/p OTTO to LAD, SVG to PDA and SVG to OM. Coronary angiogram with patent OTTO to LAD, patent SVG to OM, and occluded SVG to RCA. 2. PAD s/p R CEA in 2011. 3. CKD. 4. Chronic systolic heart failure Since his last visit, he states that he is doing better. He is starting to become more active. He had to discontinue low-dose spironolactone due to being lightheaded, and was previously hypotensive with sacubitril/valsartan. He does not want to pursue left carotid endarterectomy at this time due to the fact that he is high risk. He denies chest pain, shortness of breath, orthopnea, cough, edema, palpitations, PND, lightheadedness or syncope. 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 ([facility]) 09/03/2022 Dyslipidemia GERD (gastroesophageal reflux disease) Heart failure, acute systolic ([facility]) Hypertension Hypothyroid Myocardial infarct, old Occlusion and stenosis of carotid artery without mention of cerebral infarction Prostate cancer ([facility]) 2020 PVD (peripheral vascular disease) ([facility]) 11/17/2012 Stroke (cerebrum) ([facility]) 09/03/2022 Systolic heart failure ([facility] [facility]) Thyroid disorder 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 kidney disease, unspecified CKD stage, unspecified whether intermodal customer service insulin use ([facility]) 04/26/2023 Ventricular tachycardia ([facility]) 04/28/2012 PAST SURGICAL HISTORY Procedure Laterality Date ANGIOGRAPHY, EXT CAROTID Right 2011 CABG (3) VEIN GRAFTS AND ARTERIAL GRAFT(S) 05/01/2012 Median sternotomy, coronary artery bypass grafting with in situ left internal thoracic artery to the LAD, and reverse saphenous vein graft to the posterior descending artery and obtuse marginal. HEART CATHETERIZATION SOCIAL HISTORY Social History Tobacco Use Smoking status: Former Packs/day: 1.00 Years: 10.00 Total pack years: 10.00 Types: Cigarettes, Pipe Quit date: 04/28/1982 Years since quittin.0 Smokeless tobacco: Never Vaping Use Vaping Use: Never used Substance Use Topics Alcohol use: Yes Comment: rarely Drug use: No FAMILY HISTORY Problem Relation Age of Onset Coronary Artery Disease Father Heart Attack Father fatal [place] at age 77 other (atrial fibrillation) Mother other (CHF) Mother other (Other) Mother at age 96 Ischemic Heart Disease Brother CABGx6 first at age 72 No Known Problems Daughter No Known Problems Daughter No Known Problems Daughter other (Other) Other paternal cousin at age 50 of [place] ALLERGIES: ALLERGIES Allergen Reactions Latex Rash Adhesive Tape (Keyanna* Rash MEDICATIONS: FARXIGA 10 mg tabletTake 1 tablet by mouth once daily.Disp: 90 tabletRfl: 3 therapeutic multivitamin w/ iron (THERAGRAN-M) 27-0.4 mg tabletTake 1 tablet by mouth once daily.Disp: Rfl: torsemide (DEMADEX) 10 mg tabletTake 1 tablet by mouth once daily.Disp: 90 tabletRfl: 3 lisinopril (ZESTRIL, PRINIVIL) 5 mg tabletTake 1 tablet by mouth once daily.Disp: 90 tabletRfl: 3 aspirin, enteric coated (ASPIRIN, ENTERIC COATED) 81 mg EC tabletTake 1 tablet by mouth once daily.Disp: Rfl: spironolactone (ALDACTONE) 25 mg tabletTake 12.5 mg by mouth once daily.Disp: Rfl: ezetimibe (ZETIA) 10 mg tabletTake 10 mg by mouth once daily.Disp: Rfl: metoprolol succinate ER (TOPROL XL) 25 mg 24 hr tabletTake 1 tablet by mouth once daily.Disp: 90 tabletRfl: 3 ubidecarenone Q-10 (COENZYME Q-10) 10 mg capTake 10 mg by mouth once daily.Disp: Rfl: thyroid, pork, 60 mg tabletTake 75 mg by mouth once daily.Disp: Rfl: atorvastatin (LIPITOR) 40 mg tabletTake 40 mg by mouth daily at bedtime.Disp: Rfl: 2 REVIEW OF SYSTEMS: GENERAL: Negative for: Weight loss or gain, Fever or Chills, Weakness and Sleep difficulties. HE (more content not included)... Normal [facility] ECG COMPLETEon 04-26-2023 ECG COMPLETE Ventricular Rate : 6 6 BPM Atrial Rate : 66 BPM P-R Interval : 180 ms QRS Duration : 114 ms Q-T Interval : 406 ms QTC Calculation(Bazett) : 425 ms Calculated P [place] : 39 degrees Calculated R [place] : -13 degrees Calculated T [place] : 87 degrees SINUS RHYTHM WITH SINUS ARRHYTHMIA WITH OCCASIONAL PREMATURE VENTRICULAR COMPLEXES CANNOT EXCLUDE OLD INTERIOR INFARCTION ABNORMAL ECG Confirmed by CARMELA CRYSTAL MD ([id number]) on 05/02/2023 7:31:47 PM NAME : JOSÉ MIGUEL ROTH PID : [id number] : 1940 Gender : Male Race : ORD : [id number] Procedure Date : Apr 26 2023 12:40:23 Edit Date : May 02 2023 19:31:54 Diagnosis: SINUS RHYTHM WITH SINUS ARRHYTHMIA WITH OCCASIONAL PREMATURE VENTRICULAR COMPLEXES CANNOT EXCLUDE OLD INTERIOR INFARCTION ABNORMAL ECG Confirmed by CARMELA CRYSTAL MD ([id number]) on 05/02/2023 7:31:47 PM Test Reason : Location : 314 : [facility] [id number] Overread By : CARMELA CRYSTAL MD Edited By : CARMELA CRYSTAL MD Referred By : ANDREAS DEL CID Acquired by : MAIKOL BURLESON [facility] ECHOon 04-26-2023 Echocardiography Echocardiography Rep ort: Transthoracic Echo [facility] J1-5 Date of service: 04/26/2023 1:20:02 PM FARMER Ordering physician: ANDREAS DEL CID Indication: Evaluation of known heart failure to guide therapy Technologist: Adama Avitia RVT Fellow: Osvaldo Jacob MD Interpreting physician: Velma Pope MD,PhD PATIENT: Name: MR. JOSÉ MIGUEL ROTH JR. : 1940 Age: 83 years Gender: M History of coronary artery disease, myocardial infarction, chronic kidney disease, dyslipidemia and hypertension. Previous cardiovascular interventions: CABG (2011) Dual chamber PPM-ICD (03/24/2019) Primary rhythm: sinus. Secondary rhythm: PVC. Height: 182.90 cm BSA: 2.06 m Weight: 83.92 kg BMI: 25.1 kg/m Heart rate 70 bpm Blood pressure 130/78 mmHg Color Doppler was utilized to interrogate the cardiac valves assessed and spectral Doppler was utilized to determine the flow velocities and pressure gradients reported in this exam. Myocardial strain analysis was performed in this exam to aid in the assessment of cardiac function. MEASUREMENTS: Value Indexed Normal Max aortic dimension 4.0 cm Ao < 3.8 Left atrial volume 66 ml (biplane A-L) 32 ml/m Colette <= 34 LV ID (diastole) 7.0 cm (2D) 3.37 cm/m LV ID (systole) 6.1 cm (2D) 2.97 cm/m IVS, leaflet tips 0.9 cm (2D) Posterior wall thickness 1.0 cm (2D) Left ventricular mass 291 g (2D) 141 g/m Global peak long strain -9.3 % LV stroke volume 73 ml (3D) LV end diastolic volume 305 ml (3D) 147.7 ml/m EDVi<=79 LV end systolic volume 232 ml (3D) 112.4 ml/m Ejection Fraction 24 % (3D) EF > 52 FINDINGS: LEFT VENTRICLE The left ventricle is dilated. Left ventricular systolic function is severely decreased. Global LV myocardial strain is abnormal. Left ventricular diastolic function was not evaluated due to >2+ MR. Wall Motion: The basal inferolateral segment and basal inferior segment are akinetic. The anterolateral wall and mid inferolateral segment are severely hypokinetic. The entire anterior wall, entire septum, entire apex, and mid and distal inferior wall are mildly hypokinetic. 3D data was obtained and analyzed to provide quantitative left ventricle measurements and assist with ventricular assessment. RIGHT VENTRICLE The right ventricle is normal in size. Pacer wires are noted in the right ventricle. Right ventricular systolic function is mildly decreased. Tricuspid annular displacement is 2.1 cm. Estimated right ventricular systolic pressure is not reported due to an insufficient tricuspid regurgitation signal. Estimated right atrial pressure is 3 mmHg based on IVC assessment. LEFT ATRIUM The left atrial cavity is normal in size. Pulmonary Veins: The pulmonary venous pattern showed blunted systolic flow. RIGHT ATRIUM The right atrial cavity is dilated. Pacer wires are noted in the right atrium. Inferior Vena Cava: The inferior vena cava appears normal measuring 1.7 cm. The vessel decreases greater than 50 percent with inspiration. MITRAL VALVE There is moderately severe (3+) holosystolic mitral valve regurgitation due to apical tethering of normal mitral leaflet caused by LV enlargement and restricted leaflet motion likely related to ischemic heart disease. There is a centrally directed regurgitant jet originating along the central aspect of the coaptation line. There is mild thickening. The pressure half time is 70 msec. The peak mitral E/A ratio is 1.11. The mitral flow deceleration time is 240 msec. TRICUSPID VALVE The tricuspid valve leaflets are structurally normal. There is trace (trace - 1+) tricuspid valve regurgitation. AORTIC VALVE There is trace aortic valve regurgitation. Tricuspid aortic valve. There is mild thickening. There is mild calcification. PULMONIC VALVE The pulmonic valve cusps are structurally normal. There is trace pulmonic valve regurgitation. AORTA The visualized aorta is borderline dilated. Measurements - Mid ascending aorta 4.0 cm. PULMONARY ARTERIES The pulmonary arteries are normal. INTERATRIAL SEPTUM There is no evidence of intracardiac shunting as detected by Doppler. INTERVENTRICULAR SEPTUM There is no flow through the interventricular septum as detected by Doppler. PERICARDIUM There is no pericardial effusion. There is an epicardial fat pad. CONCLUSIONS: - Exam indication: Evaluation of known heart failure to guide therapy - The left ventricle is dilated. Left ventricular systolic function is severely decreased. EF = 24 5% (3D) Left ventricular diastolic function was not evaluated due to >2+ MR. - The right ventricle is normal in size. Right ventricular systolic function is mildly decreased. - The right atrial cavity is dilated. - The visualized aorta is borderline dilated with a maximal dimension of 4.0 cm. - There is moderately severe (3+) holosystolic mitral valve regurgitation due to apical teth (more content not included)... Normal [facility] CNOVon 04-02-2023 CNOV Office Visit (RADTSA ) JOSÉ MIGUEL ROTH JR. 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 and repeat biopsy showing Thayer 7 (3+4) adenocarcinoma. RADIATION SUMMARY: DATES OF TREATMENT: 10/23/2021 to 12/19/2019 AREA TREATED: Pelvis Prostate DELIVERED DOSE: Area: Pelvis Prostate 4,600 cGy in 23 fractions, 3 Maxwell, IMRT, 10MV with daily CBCT Area: Pelvis Prostate Boost 3,200 cGy in 16 fractions, 2 Maxwell, IMRT, 10MV with daily CBCT TOTAL: 7,800 cGy in 39 Fractions ELAPSED TIME: 56 days. INTERVAL HISTORY: The patient presents for routine follow-up. Doing fairly well. Denies any bladder or bowel changes. Appetite stable. Helping his brother who recently had to be admitted to care home due to feels safe. PSA HISTORY: PSA (ng/mL) Date Value 03/26/2023 <0.02 04/19/2022 <0.02 01/15/2022 <0.02 11/09/2021 0.16 09/05/2021 36.20 PSA. (no units) Date Value 09/12/2022 <0.13 10/21/2018 12.30 ALLERGIES Allergen Reactions Latex Rash Adhesive Tape (Keyanna* Rash FARXIGA 10 mg tabletTake 1 tablet by mouth once daily.Disp: 90 tabletRfl: 3 therapeutic multivitamin w/ iron (THERAGRAN-M) 27-0.4 mg tabletTake 1 tablet by mouth once daily.Disp: Rfl: torsemide (DEMADEX) 10 mg tabletTake 1 tablet by mouth once daily.Disp: 90 tabletRfl: 3 lisinopril (ZESTRIL, PRINIVIL) 5 mg tabletTake 1 tablet by mouth once daily.Disp: 90 tabletRfl: 3 aspirin, enteric coated (ASPIRIN, ENTERIC COATED) 81 mg EC tabletTake 1 tablet by mouth once daily.Disp: Rfl: ezetimibe (ZETIA) 10 mg tabletTake 10 mg by mouth once daily.Disp: Rfl: metoprolol succinate ER (TOPROL XL) 25 mg 24 hr tabletTake 1 tablet by mouth once daily.Disp: 90 tabletRfl: 3 ubidecarenone Q-10 (COENZYME Q-10) 10 mg capTake 10 mg by mouth once daily.Disp: Rfl: thyroid, pork, 60 mg tabletTake 75 mg by mouth once daily.Disp: Rfl: atorvastatin (LIPITOR) 40 mg tabletTake 40 mg by mouth daily at bedtime.Disp: Rfl: 2 spironolactone (ALDACTONE) 25 mg tabletTake 12.5 mg by mouth once daily.Disp: Rfl: REVIEW OF SYSTEMS: D/N = 4-5/1-2 Hematuria: none Dysuria: none Incontinence: none Urgency: mild Catheter use: none Medications to aid urination: no - Total AUA Score: 1 Bowel movement frequency: 1/day Bowel movement quality: normal Blood per rectum: none Last colonoscopy: na Androgen deprivation: Lupron/Casodex has stopped PHYSICAL EXAM: BP 131/89 Pulse 64 Temp (!) 35.9 ?C (96.6 ?F) Resp 16 Wt 86.2 kg (190 lb) SpO2 96% BMI 25.77 kg/m? KPS: 100 General Appearance: Alert and oriented. No acute distress. Neck supraclavicular and axillary area without lymphadenopathy rectal exam is deferred. ASSESSMENT/PLAN: Prostate adenocarcinoma, initial PSA 8, biopsy Thayer score 3 + 4 = 7 (grade group 2), clinical stage T1c, N0, M0, stage IIB [T1-T2, N0, M0, PSA <20, GG 2] (AJCC 8th ed.), s/p TRUS Random biopsy, PSA remains undetectable. No significant posttreatment problems. Recommend repeat PSA in 6 months. Signed by: Yung Kim MD cc: Francisca Thompson MD [address] [place] [address] Kathie Pavon RN 04/02/2023 4:02 PM Signed AUA 1.5 Kathie Pavon RN Allergies As of Date: 04/02/2023 Noted Allergy Reaction LATEX 03/13/2019 2 - Rash ADHESIVE TAPE (ROSINS) 06/16/2012 2 - Rash Date Reviewed: 04/02/2023 Reviewed by: Kathie Pavon RN - Fully Assessed Reason for Visit: Prostate Cancer [590] Primary Visit Diagnosis:Malignant neoplasm of prostate (HCC) [C61] Order(s):PSA/PROSTSPECAG DIAG [SQPSA] Order #: [id number] FUTURE Prescriptions as of 04/05/2023 - FARXIGA 10 mg tablet Take 1 tablet by mouth once daily. - therapeutic multivitamin w/ iron (THERAGRAN-M) 27-0.4 mg tablet Take 1 tablet by mouth once daily. - torsemide (DEMADEX) 10 mg tablet Take 1 tablet by mouth once daily. - lisinopril (ZESTRIL, PRINIVIL) 5 mg tablet Take 1 tablet by mouth once daily. - aspirin, enteric coated (ASPIRIN, ENTERIC COATED) 81 mg EC tablet Take 1 tablet by mouth once daily. - spironolactone (ALDAC (more content not included)... Normal [facility] PSA SerPl-ncon 03-26-2023 Prostate specific Ag [Mass/Vol] ng/mL Normal <2.60 [facility] Comment on above: Order Comment: Speci men Type: BLOOD SPECIMENOrdering Facility: [facility] Address: [address] [place] [address] Result Comment: Tota l PSA test methodology used is the Electrochemiluminescence Immunoassay by [employer]. Total PSA values by differing methodologies cannot be interchanged. Performed By: #### 2 [id number] ####[facility] LABCLIA [id number] [place] [address] [place] ICD REMOTE CHECKon 3 AV Delay Adaptive Paced Minimum (ms) [address] [facility] AV Delay Adaptive Sensed Minimum (ms) [address] [facility] Bj RA Pacing Amplitude (volts) 2.[address] [facility] Bj RA Pacing Polarity BI [facility] Bj RA Pacing Pulse Width (ms) 0.[address] [facility] Bj RA Sensing Amplitude (mvolts) 0.[address] [facility] Bj RA Sensing Polarity BI [facility] Bj RV Pacing Amplitude (volts) 2.[address] [facility] Bj RV Pacing Polarity BI [facility] Bj RV Pacing Pulse Width (ms) 0.[address] [facility] Bj RV Sensing Amplitude (mvolts) 0.[address] [facility] Bj RV Sensing Polarity BI [facility] Detection Configuration (Vent) 2 - Zone [facility] FastVT_Detection Interval [address] [facility] FastVT_Therapy Configuration 1 ATP(s) + 8 Shock(s) [facility] ICD FastVT DetectionStatus ENABLED [facility] ICD-AMS EPISODES 170 {beats}/min [facility] ICD-ATP Episodes (Vent) [address] [facility] ICD-ATRIALFIBRILLAT ION [address] [facility] ICD-ATRIALTACHYCARD IA [address] [facility] ICD-ATRIALTACHYCARD IA [address] [facility] ICD-Device Mfg BSX [facility] ICD-Fast Ventricular Tachycardia [address] [facility] ICD-LEADIMPEDANCEAT RIAL [address] [facility] ICD-Percent Pacing (Atrial) 1 % [facility] ICD-Percent Pacing (Vent) 0 % [facility] ICD-Shocks Aborted (Vent) [address] [facility] APB-KWAVMB-LXYQRZGI D [address] [facility] ICD-SHOCKSABORTED 0 [facility] ICD-SHOCKSDELIVERED VENTRICULAR [address] [facility] ICD-Ventricular Fibrillation [address] [facility] Lead Impedance (RV) 426 ohm [facility] Lead Impedance High Voltage [address] [facility] Lead1 Mfg BSX [facility] Lead2 Mfg BSX [facility] Location RV [facility] Location RA [facility] Lower Rate (bpm) 50 {beats}/min [facility] Max Sensor Rate (bpm) 130 {beats}/min [facility] MDT_PROG_TACHY_ZONE _DETECTIONS_STATUS ENABLED [facility] Model D142 INOGEN [facility] Model 0675 [place] 4-Front [facility] Model 7741 Ingevity [facility] Pacing Mode DDDR [facility] Serial Number [id number] [facility] Serial Number [id number] [facility] Serial Number [id number] [facility] Test Charge Energy 23 J [facility] Test Charge Time 10.2 s [facility] Therapy Status (Vent) Enabled [facility] Thresh RA Capture Amplitude (volts) 0.[address] [facility] Thresh RA Capture Duration (ms) 0.[address] [facility] Thresh RV Capture Amplitude (VOLTS) 0.[address] [facility] Thresh RV Capture Duration (MS) 0.[address] [facility] Tracking Rate (bpm) 130 {beats}/min [facility] VF Zone Detection Interval [address] [facility] VF Zone Therapy Configuration 1 ATP(s) + 8 Shock(s) [facility] No Panel Informationon 02-21 BLANK _ [facility] ICD-ATRIALTACHYCARD IA [address] [facility] ICD-Fast Ventricular Tachycardia [address] [facility] Implant Date 03/24/[address] [facility] FREE T3on 02-08-2023 FREE T3 3.21 pg/mlL Normal 2.18-3.98 Comment on above: Performed By: #### V ITAD #### [facility] [address] [address] [address] Silva Burnett FREE T4on 02-08-2023 Free T4 [Mass/Vol] 0.74 ng/dL Critically low 0.76-1.46 Th [facility] Comment on above: Performed By: #### B MP, BNP #### [facility] [address] [address] [address] Silva Burnett TSHon 02-08-2023 TSH 0.168 uIU/mL Critically low 0.358-3.740 [facility] Comment on above: Performed By: #### V ITAD #### [facility] [address] [address] [address] Silva Burnett CNPNon 12-12-2022 CNPN Telephone (VASSMN) JOSÉ MIGUEL ROTH JR. ([id number]) 1940 M Date Time Provider Department 12/12/22 JOHN JEFFERSON During your visit today, we recorded the following information about you: Huber Espinal RN 12/12/2022 12:04 PM Signed Pt cancelled 3- carotid surgery, left pt message to update office on whether he wants to reschedule or decline surgery altogether. Huber Espinal RN Allergies As of Date: 12/12/2022 Noted Allergy Reaction LATEX 03/13/2019 2 - Rash ADHESIVE TAPE (ROSINS) 06/16/2012 2 - Rash Date Reviewed: 10/25/2022 Reviewed by: Caleb Rushing Ma - Fully Assessed Reason for Visit: Patient Update [1234] Prescriptions as of 12/12/2022 - FARXIGA 10 mg tablet Take 1 tablet by mouth once daily. - therapeutic multivitamin w/ iron (THERAGRAN-M) 27-0.4 mg tablet Take 1 tablet by mouth once daily. - torsemide (DEMADEX) 10 mg tablet Take 1 tablet by mouth once daily. - lisinopril (ZESTRIL, PRINIVIL) 5 mg tablet Take 1 tablet by mouth once daily. - aspirin, enteric coated (ASPIRIN, ENTERIC COATED) 81 mg EC tablet Take 1 tablet by mouth once daily. - spironolactone (ALDACTONE) 25 mg tablet Take 12.5 mg by mouth once daily. - ezetimibe (ZETIA) 10 mg tablet Take 10 mg by mouth once daily. - metoprolol succinate ER (TOPROL XL) 25 mg 24 hr tablet Take 1 tablet by mouth once daily. - ubidecarenone Q-10 (COENZYME Q-10) 10 mg cap Take 10 mg by mouth once daily. - thyroid, pork, 60 mg tablet Take 75 mg by mouth once daily. - atorvastatin (LIPITOR) 40 mg tablet Take 40 mg by mouth daily at bedtime. Facility-Administered Medications as of 12/12/2022 - perflutren lipid microspheres 1.3 mL in NaCl (PF) 0.9% 10 mL injection (DEFINITY) - sodium chloride 0.9 % (flush) 10 mL (BD POSIFLUSH) Meds Comments as of 08/04/2012: Medications verbally confirmed. Guy Fair LPN August 04, 2012 Problem List As Of Date 12/12/[address] elevation myocardial infarction (STEMI) of t*04/28/2012 05/05/2012 CAD (coronary artery disease), [place] coronary *04/28/2012 SUMMARY [V999.95] 04/28/2012 Wide-complex tachycardia [R00.0] 04/28/2012 05/05/2012 Pre-op evaluation [Z01.818] 04/28/2012 05/01/2012 Hyperlipidemia [E78.5] 04/28/2012 Preop testing [Z01.818] 04/29/2012 Stress hyperglycemia [R73.9] 05/01/2012 05/06/2012 Mechanically assisted ventilation [Z99.11] 05/01/2012 05/02/2012 Hypotension [I95.9] 05/01/2012 05/03/2012 Heart failure, acute systolic (HCC) [I50.21] 05/01/2012 Thrombocytopenia (HCC) [D69.6] 05/01/2012 05/05/2012 Post-operative pain [G89.18] 05/01/2012 05/06/2012 Carotid stenosis [I65.29] 05/01/2012 Atrial fib/flutter, transient 05/03/2012 Occlusion and stenosis of carotid artery withou*06/16/2012 S/P CABG (coronary artery bypass graft) [Z95.1] 06/17/2012 Sweating [KXO1332] 11/17/2012 CAD (coronary artery disease) of artery bypass *11/17/2012 Systolic heart failure (HCC) [I50.20] 11/17/2012 PVD (peripheral vascular disease) ([facility]) [I73.9] 11/17/2012 Prostate cancer ([facility]) [C61] 10/09/2017 Syncope [R55] 03/18/2019 Stroke (cerebrum) ([facility]) [I63.9] 09/03/2022 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 ([id number]) 1940 M Date Time Provider Department 11/29/22 JOHN JEFFERSON During your visit today, we recorded the following information about you: Darlene Rajput Sec 11/29/2022 9:12 AM Signed Mr. Roth decided not to move forward with surgery at this time and would like to cancel. Darlene Rajput Industrial Renderer Allergies As of Date: 11/29/2022 Noted Allergy Reaction LATEX 03/13/2019 2 - Rash ADHESIVE TAPE (ROSINS) 06/16/2012 2 - Rash Date Reviewed: 10/25/2022 Reviewed by: Caleb Rushing Ma - Fully Assessed Reason for Visit: Surgery Cancelled [[id number]] Prescriptions as of 11/29/2022 - therapeutic multivitamin w/ iron (THERAGRAN-M) 27-0.4 mg tablet Take 1 tablet by mouth once daily. - torsemide (DEMADEX) 10 mg tablet Take 1 tablet by mouth once daily. - lisinopril (ZESTRIL, PRINIVIL) 5 mg tablet Take 1 tablet by mouth once daily. - aspirin, enteric coated (ASPIRIN, ENTERIC COATED) 81 mg EC tablet Take 1 tablet by mouth once daily. - FARXIGA 10 mg tablet Take 10 mg by mouth once daily. - spironolactone (ALDACTONE) 25 mg tablet Take 12.5 mg by mouth once daily. - ezetimibe (ZETIA) 10 mg tablet Take 10 mg by mouth once daily. - metoprolol succinate ER (TOPROL XL) 25 mg 24 hr tablet Take 1 tablet by mouth once daily. - ubidecarenone Q-10 (COENZYME Q-10) 10 mg cap Take 10 mg by mouth once daily. - thyroid, pork, 60 mg tablet Take 75 mg by mouth once daily. - atorvastatin (LIPITOR) 40 mg tablet Take 40 mg by mouth daily at bedtime. Facility-Administered Medications as of 11/29/2022 - perflutren lipid microspheres 1.3 mL in NaCl (PF) 0.9% 10 mL injection (DEFINITY) - sodium chloride 0.9 % (flush) 10 mL (BD POSIFLUSH) Meds Comments as of 08/04/2012: Medications verbally confirmed. Guy Fair LPN August 04, 2012 Problem List As Of Date 11/29/[address] elevation myocardial infarction (STEMI) of t*04/28/2012 05/05/2012 CAD (coronary artery disease), [place] coronary *04/28/2012 SUMMARY [V999.95] 04/28/2012 Wide-complex tachycardia [R00.0] 04/28/2012 05/05/2012 Pre-op evaluation [Z01.818] 04/28/2012 05/01/2012 Hyperlipidemia [E78.5] 04/28/2012 Preop testing [Z01.818] 04/29/2012 Stress hyperglycemia [R73.9] 05/01/2012 05/06/2012 Mechanically assisted ventilation [Z99.11] 05/01/2012 05/02/2012 Hypotension [I95.9] 05/01/2012 05/03/2012 Heart failure, acute systolic (HCC) [I50.21] 05/01/2012 Thrombocytopenia (HCC) [D69.6] 05/01/2012 05/05/2012 Post-operative pain [G89.18] 05/01/2012 05/06/2012 Carotid stenosis [I65.29] 05/01/2012 Atrial fib/flutter, transient 05/03/2012 Occlusion and stenosis of carotid artery withou*06/16/2012 S/P CABG (coronary artery bypass graft) [Z95.1] 06/17/2012 Sweating [MVK2765] 11/17/2012 CAD (coronary artery disease) of artery bypass *11/17/2012 Systolic heart failure (HCC) [I50.20] 11/17/2012 PVD (peripheral vascular disease) ([facility]) [I73.9] 11/17/2012 Prostate cancer ([facility]) [C61] 10/09/2017 Syncope [R55] 03/18/2019 Stroke (cerebrum) ([facility]) [I63.9] 09/03/2022 Chronic combined systolic and diastolic congest*09/03/2022 Carotid stenosis, asymptomatic, bilateral [I65.*09/03/2022 Encounter Status:Closed by DARLENE SHUKLA on 11/29/22 Normal [facility] ICD REMOTE CHECKon 3 AV Delay Adaptive Paced Minimum (ms) [address] [facility] AV Delay Adaptive Sensed Minimum (ms) [address] [facility] Bj RA Pacing Amplitude (volts) [address] [facility] Bj RA Pacing Polarity BI [facility] Bj RA Pacing Pulse Width (ms) 0.[address] [facility] Bj RA Sensing Amplitude (mvolts) 0.[address] [facility] Bj RA Sensing Polarity BI [facility] Bj RV Pacing Amplitude (volts) [address] [facility] Bj RV Pacing Polarity BI [facility] Bj RV Pacing Pulse Width (ms) 0.[address] [facility] Bj RV Sensing Amplitude (mvolts) 0.[address] [facility] Bj RV Sensing Polarity BI [facility] Detection Configuration (Vent) 2 - Zone [facility] FastVT_Detection Interval [address] [facility] FastVT_Therapy Configuration 1 ATP(s) + 8 Shock(s) [facility] ICD FastVT DetectionStatus ENABLED [facility] ICD-AMS EPISODES 170 {beats}/min [facility] ICD-ATP Episodes (Vent) [address] [facility] ICD-ATRIALFIBRILLAT ION [address] [facility] ICD-ATRIALTACHYCARD IA [address] [facility] ICD-ATRIALTACHYCARD IA [address] [facility] ICD-Device Mfg BSX [facility] ICD-Fast Ventricular Tachycardia [address] [facility] ICD-LEADIMPEDANCEAT RIAL [address] [facility] ICD-Percent Pacing (Atrial) 1 % [facility] ICD-Percent Pacing (Vent) 0 % [facility] ICD-Shocks Aborted (Vent) [address] [facility] [id number]-[id number] D [address] [facility] ICD-SHOCKSABORTED 0 [facility] ICD-SHOCKSDELIVERED VENTRICULAR [address] [facility] ICD-Ventricular Fibrillation [address] [facility] Lead Impedance (RV) 458 ohm [facility] Lead Impedance High Voltage [address] [facility] Lead1 Mfg BSX [facility] Lead2 Mfg BSX [facility] Location RV [facility] Location RA [facility] Lower Rate (bpm) 50 {beats}/min [facility] Max Sensor Rate (bpm) 130 {beats}/min [facility] MDT_PROG_TACHY_ZONE _DETECTIONS_STATUS ENABLED [facility] Model D142 INOGEN [facility] Model 0675 [place] 4-Front [facility] Model 7741 Ingevity [facility] Pacing Mode DDDR [facility] Serial Number [id number] [facility] Serial Number [id number] [facility] Serial Number [id number] [facility] Test Charge Energy 23 J [facility] Test Charge Time 10.2 s [facility] Therapy Status (Vent) Enabled [facility] Thresh RA Capture Amplitude (volts) 0.[address] [facility] Thresh RA Capture Duration (ms) 0.[address] [facility] Thresh RV Capture Amplitude (VOLTS) 0.[address] [facility] Thresh RV Capture Duration (MS) 0.[address] [facility] Tracking Rate (bpm) 130 {beats}/min [facility] VF Zone Detection Interval [address] [facility] VF Zone Therapy Configuration 1 ATP(s) + 8 Shock(s) [facility] No Panel Informationon 11-07 BLANK _ [facility] ICD-ATRIALTACHYCARD IA [address] [facility] ICD-Fast Ventricular Tachycardia [address] [facility] Implant Date 03/24/[address] [facility] CNPNon 10-31-2022 CNPN Telephone ([employer]) JOSÉ MIGUEL ROTH JR. ([id number]) 1940 Date Time Provider Department 10/31/22 JOHN JEFFERSON During your visit today, we recorded the following information about you: Lidia Mccloud 10/31/2022 12:01 PM Signed Called patient José Miguel to clarify surgery date and advise pre scheduled date requested, asked if I could look up his brothers surgery information, advised I could not my apologizes,to also check as he has EKG/Echo scheduled with Cardiac scheduled day after surgery ..Tiffany H Allergies As of Date: 10/31/2022 Noted Allergy Reaction LATEX 03/13/2019 2 - Rash ADHESIVE TAPE (ROSINS) 06/16/2012 2 - Rash Date Reviewed: 10/25/2022 Reviewed by: Caleb Rushing Ma - Fully Assessed Reason for Visit: Appointment [186] Prescriptions as of 10/31/2022 - therapeutic multivitamin w/ iron (THERAGRAN-M) 27-0.4 mg tablet Take 1 tablet by mouth once daily. - torsemide (DEMADEX) 10 mg tablet Take 1 tablet by mouth once daily. - lisinopril (ZESTRIL, PRINIVIL) 5 mg tablet Take 1 tablet by mouth once daily. - aspirin, enteric coated (ASPIRIN, ENTERIC COATED) 81 mg EC tablet Take 1 tablet by mouth once daily. - FARXIGA 10 mg tablet Take 10 mg by mouth once daily. - spironolactone (ALDACTONE) 25 mg tablet Take 12.5 mg by mouth once daily. - ezetimibe (ZETIA) 10 mg tablet Take 10 mg by mouth once daily. - metoprolol succinate ER (TOPROL XL) 25 mg 24 hr tablet Take 1 tablet by mouth once daily. - ubidecarenone Q-10 (COENZYME Q-10) 10 mg cap Take 10 mg by mouth once daily. - thyroid, pork, 60 mg tablet Take 75 mg by mouth once daily. - atorvastatin (LIPITOR) 40 mg tablet Take 40 mg by mouth daily at bedtime. Facility-Administered Medications as of 10/31/2022 - perflutren lipid microspheres 1.3 mL in NaCl (PF) 0.9% 10 mL injection (DEFINITY) - sodium chloride 0.9 % (flush) 10 mL (BD POSIFLUSH) Meds Comments as of 08/04/2012: Medications verbally confirmed. Guy Fair LPN August 04, 2012 Problem List As Of Date 10/31/[address] elevation myocardial infarction (STEMI) of t*04/28/2012 05/05/2012 CAD (coronary artery disease), [place] coronary *04/28/2012 SUMMARY [V999.95] 04/28/2012 Wide-complex tachycardia [R00.0] 04/28/2012 05/05/2012 Pre-op evaluation [Z01.818] 04/28/2012 05/01/2012 Hyperlipidemia [E78.5] 04/28/2012 Preop testing [Z01.818] 04/29/2012 Stress hyperglycemia [R73.9] 05/01/2012 05/06/2012 Mechanically assisted ventilation [Z99.11] 05/01/2012 05/02/2012 Hypotension [I95.9] 05/01/2012 05/03/2012 Heart failure, acute systolic (HCC) [I50.21] 05/01/2012 Thrombocytopenia (HCC) [D69.6] 05/01/2012 05/05/2012 Post-operative pain [G89.18] 05/01/2012 05/06/2012 Carotid stenosis [I65.29] 05/01/2012 Atrial fib/flutter, transient 05/03/2012 Occlusion and stenosis of carotid artery withou*06/16/2012 S/P CABG (coronary artery bypass graft) [Z95.1] 06/17/2012 Sweating [DMH3272] 11/17/2012 CAD (coronary artery disease) of artery bypass *11/17/2012 Systolic heart failure ([facility]) [I50.20] 11/17/2012 PVD (peripheral vascular disease) ([facility]) [I73.9] 11/17/2012 Prostate cancer ([facility]) [C61] 10/09/2017 Syncope [R55] 03/18/2019 Stroke (cerebrum) ([facility]) [I63.9] 09/03/2022 Chronic combined systolic and diastolic congest*09/03/2022 Carotid stenosis, asymptomatic, bilateral [I65.*09/03/2022 Encounter Status:Closed by LIDIA MCCLOUD on 10/31/22 Normal [facility] metabolic 2000 panelon 10-26-2022 Albumin [Mass/Vol] 4.0 g/dL 3.9 - 4.9 g/dL [facility] ALP [Catalytic activity/Vol] 103 U/L 38 - 113 U/L [facility] ALT [Catalytic activity/Vol] 15 U/L 10 - 54 U/L [facility] Anion gap [Moles/Vol] 17 mmol/L 9 - 18 mmol/L [facility] AST [Catalytic activity/Vol] 26 U/L 14 - 40 U/L [facility] Bilirubin [Mass/Vol] 0.6 mg/dL 0.2 - 1.3 mg/dL [facility] Calcium [Mass/Vol] 10.2 mg/dL 8.5 - 10. 2 mg/dL [facility] Chloride [Moles/Vol] 103 mmol/L 97 - 105 mmol/L [facility] CO2 [Moles/Vol] 20 mmol/L Low 22 - 30 mmol/L [facility] Creatinine [Mass/Vol] 1.89 mg/dL High 0.73 - 1.22 mg/dL [facility] Estimated Glomerular Filtration Rate 35 mL/min/1.73m Low >=60 mL/min/1.[address] [facility] Glucose [Mass/Vol] 103 mg/dL High 74 - 99 mg/dL [facility] Potassium [Moles/Vol] 5.5 mmol/L High 3.7 - 5.1 mmol/L [facility] Protein [Mass/Vol] 7.7 g/dL 6.3 - 8.0 g/dL [facility] Sodium [Moles/Vol] 140 mmol/L 136 - 144 mmol/L [facility] Urea nitrogen [Mass/Vol] 40 mg/dL High 9 - 24 mg/dL [facility] NT PRO BNPon 10-26-2022 Natriuretic peptide.B prohormone N-Terminal [Mass/Vol] 5553 pg/mL High <450 pg/mL [facility] CBC W Auto Differential pane l (Bld)on 10-25-2022 Basophils (Bld) [#/Vol] 10*3/uL Normal <0.11 [facility] Comment on above: Order Comment: Speci men Type: BLOOD SPECIMENOrdering Facility: [facility] Address: [address] [place] [address] Performed By: #### 5 7021-8 ####[facility] LABCLIA [id number] [place] [address] [place] Basophils/100 WBC (Bld) 0.3 % Normal [facility] Comment on above: Order Comment: Speci men Type: BLOOD SPECIMENOrdering Facility: [facility] Address: [address] [place] [address] Performed By: #### 5 7021-8 ####[facility] LABCLIA [id number] [place] [address] [place] Differential cell count method Nom (Bld) Auto Normal [facility] Comment on above: Order Comment: Speci men Type: BLOOD SPECIMENOrdering Facility: [facility] Address: [address] [place] [address] Performed By: #### 5 7021-8 ####[facility] LABCLIA [id number] [place] [address] [place] Eosinophils (Bld) [#/Vol] 0.20 10*3/uL Normal <0.46 [facility] Comment on above: Order Comment: Speci men Type: BLOOD SPECIMENOrdering Facility: [facility] Address: [address] Performed By: #### 5 7021-8 ####[facility] LABCLIA [id number] [place] [address] [place] Eosinophils/100 WBC (Bld) 2.7 % Normal [facility] Comment on above: Order Comment: Speci men Type: BLOOD SPECIMENOrdering Facility: [facility] Address: [address] Performed By: #### 5 7021-8 ####[facility] LABCLIA [id number] [place] [address] [place] Erythrocyte distribution width (RBC) [Ratio] 13.6 % Normal 11.5-15.0 [facility] Comment on above: Order Comment: Speci men Type: BLOOD SPECIMENOrdering Facility: [facility] Address: [address] Performed By: #### 5 7021-8 ####[facility] LABCLIA [id number] [place] [address] [place] Hematocrit (Bld) [Volume fraction] 47.3 % Normal 39.0-51.0 [facility] Comment on above: Order Comment: Speci men Type: BLOOD SPECIMENOrdering Facility: [facility] Address: [address] Performed By: #### 5 7021-8 ####[facility] LABCLIA [id number] [place] [address] [place] Hemoglobin (Bld) [Mass/Vol] 14.6 g/dL Normal 13.0-17.0 [facility] Comment on above: Order Comment: Speci men Type: BLOOD SPECIMENOrdering Facility: [facility] Address: [address] Performed By: #### 5 7021-8 ####[facility] LABCLIA [id number] [place] [address] [place] Immature granulocytes (Bld) [#/Vol] 10*3/uL Normal <0.10 [facility] Comment on above: Order Comment: Speci men Type: BLOOD SPECIMENOrdering Facility: [facility] Address: [address] [place] [address] Performed By: #### 5 7021-8 ####[facility] LABCLIA [id number] [address] [place] Immature granulocytes/100 WBC (Bld) 0.3 % Normal [facility] Comment on above: Order Comment: Speci men Type: BLOOD SPECIMENOrdering Facility: [facility] Address: [address] [place] [address] Performed By: #### 5 7021-8 ####[facility] LABCLIA [id number] [place] [address] [place] Lymphocytes (Bld) [#/Vol] 1.40 10*3/uL Normal 1.00-4.00 [facility] Comment on above: Order Comment: Speci men Type: BLOOD SPECIMENOrdering Facility: [facility] Address: [address] [place], [place] [address] Performed By: #### 5 7021-8 ####[facility] LABCLIA [id number] [place] [address] [place] Lymphocytes/100 WBC (Bld) 19.0 % Normal [facility] Comment on above: Order Comment: Speci men Type: BLOOD SPECIMENOrdering Facility: [facility] Address: [address] [place], [place] [address] Performed By: #### 5 7021-8 ####[facility] LABCLIA [id number] [place] [address] [place] MCH (RBC) [Entitic mass] 29.1 pg Normal 26.0-34.0 [facility] Comment on above: Order Comment: Speci men Type: BLOOD SPECIMENOrdering Facility: [facility] Address: [address] Performed By: #### 5 7021-8 ####[facility] LABCLIA [id number] [place] [address] [place] MCHC (RBC) [Mass/Vol] 30.9 g/dL Normal 30.5-36.0 [facility] Comment on above: Order Comment: Speci men Type: BLOOD SPECIMENOrdering Facility: [facility] Address: [address] Performed By: #### 5 7021-8 ####[facility] LABCLIA [id number] [place] [address] [place] MCV (RBC) [Entitic vol] 94.2 fL Normal 80.0-100.0 [facility] Comment on above: Order Comment: Speci men Type: BLOOD SPECIMENOrdering Facility: [facility] Address: [address] Performed By: #### 5 7021-8 ####[facility] LABIA [id number] [place] [address] [place] Monocytes (Bld) [#/Vol] 0.65 10*3/uL Normal <0.87 [facility] Comment on above: Order Comment: Speci men Type: BLOOD SPECIMENOrdering Facility: [facility] Address: [address] Performed By: #### 5 7021-8 ####[facility] LABIA [id number] [address] [place] Monocytes/100 WBC (Bld) 8.8 % Normal [facility] Comment on above: Order Comment: Speci men Type: BLOOD SPECIMENOrdering Facility: [facility] Address: [address] Performed By: #### 5 7021-8 ####[facility] LABCLIA [id number] [place] [address] [place] Neutrophils (Bld) [#/Vol] 5.06 10*3/uL Normal 1.45-7.50 [facility] Comment on above: Order Comment: Speci men Type: BLOOD SPECIMENOrdering Facility: [facility] Address: [address] [place] [address] Performed By: #### 5 7021-8 ####[facility] LABCLIA [id number] [place] [address] [place] Neutrophils/100 WBC (Bld) 68.9 % Normal [facility] Comment on above: Order Comment: Speci men Type: BLOOD SPECIMENOrdering Facility: [facility] Address: [address] [place] [address] Performed By: #### 5 7021-8 ####[facility] LABIA [id number] [place] [address] [place] Nucleated RBC (Bld) [#/Vol] 10*3/uL Normal <0.01 [facility] Comment on above: Order Comment: Speci men Type: BLOOD SPECIMENOrdering Facility: [facility] Address: [address] [place] [address] Performed By: #### 5 7021-8 ####[facility] LABIA [id number] [place] [address] [place] Nucleated RBC/100 WBC (Bld) [Ratio] 0.0 /100 WBC Normal [facility] Comment on above: Order Comment: Speci men Type: BLOOD SPECIMENOrdering Facility: [facility] Address: [address] [place] [address] Performed By: #### 5 7021-8 ####[facility] LABIA [id number] [place] [address] [place] Platelet mean volume (Bld) [Entitic vol] 10.7 fL Normal 9.0-12.7 [facility] Comment on above: Order Comment: Speci men Type: BLOOD SPECIMENOrdering Facility: [facility] Address: [address] [place], [place] [address] Performed By: #### 5 7021-8 ####[facility] LABCLIA [id number] [place] [address] [place] Platelets (Bld) [#/Vol] 159 10*3/uL Normal 150-400 [facility] Comment on above: Order Comment: Speci men Type: BLOOD SPECIMENOrdering Facility: [facility] Address: [address] [place], [place] [address] Performed By: #### 5 7021-8 ####[facility] LABIA [id number] [place] [address] [place] RBC (Bld) [#/Vol] 5.02 10*6/uL Normal 4.20-6.00 [facility] Comment on above: Order Comment: Speci men Type: BLOOD SPECIMENOrdering Facility: [facility] Address: [address] [place], [place] [address] Performed By: #### 5 7021-8 ####[facility] LABIA [id number] [place] [address] [place] WBC (Bld) [#/Vol] 7.35 10*3/uL Normal 3.70-11.00 [facility] Comment on above: Order Comment: Speci men Type: BLOOD SPECIMENOrdering Facility: [facility] Address: [address] [place], [place] [address] Performed By: #### 5 7021-8 ####[facility] LABCLIA [id number] [place] [address] [place] Basophils (Bld) [#/Vol] <0.11 k/uL [facility] Basophils/100 WBC (Bld) 0.3 % [facility] Differential cell count method Nom (Bld) Auto [facility] Eosinophils (Bld) [#/Vol] 0.20 10*3/uL <0.46 k/uL [facility] Eosinophils/100 WBC (Bld) 2.7 % [facility] Erythrocyte distribution width (RBC) [Ratio] 13.6 % 11.5 - 15.0 % [facility] Hematocrit (Bld) [Volume fraction] 47.3 % 39.0 - 51.0 % [facility] Hemoglobin (Bld) [Mass/Vol] 14.6 g/dL 13.0 - 17.0 g/dL [facility] Immature granulocytes (Bld) [#/Vol] <0.10 k/uL [facility] Immature granulocytes/100 WBC (Bld) 0.3 % [facility] Lymphocytes (Bld) [#/Vol] 1.40 10*3/uL 1.00 - 4.00 k/uL [facility] Lymphocytes/100 WBC (Bld) 19.0 % [facility] MCH (RBC) [Entitic mass] 29.1 pg 26.0 - 34.[address] [facility] MCHC (RBC) [Mass/Vol] 30.9 g/dL 30.5 - 36.0 g/dL [facility] MCV (RBC) [Entitic vol] 94.2 fL 80.0 - 100.[address] [facility] Monocytes (Bld) [#/Vol] 0.65 10*3/uL <0.87 k/uL [facility] Monocytes/100 WBC (Bld) 8.8 % [facility] Neutrophils (Bld) [#/Vol] 5.06 10*3/uL 1.45 - 7.50 k/uL [facility] Neutrophils/100 WBC (Bld) 68.9 % [facility] Nucleated RBC (Bld) [#/Vol] <0.01 k/uL [facility] Nucleated RBC/100 WBC (Bld) [Ratio] 0.0 /[address] [facility] Platelet mean volume (Bld) [Entitic vol] 10.7 fL 9.0 - 12.[address] [facility] Platelets (Bld) [#/Vol] 159 10*3/uL 150 - 400 k/uL [facility] RBC (Bld) [#/Vol] 5.02 10*6/uL 4.20 - 6.0 0 m/uL [facility] WBC (Bld) [#/Vol] 7.35 10*3/uL 3.70 - 11.00 k/uL [facility] CNOVon 10-25-2022 CNOV Office Visit ([facility] ) JOSÉ MIGUEL ROTH JRTitus ([id number]) 1940 M Date Time Provider Department 10/25/22 4:00 PM ANDREAS DEL CID During your visit today, we recorded the following information about you: Pulse Blood pressure Weight Height 74/minute 116/66 83.9 kg 1.829 m Andreas Del Cid MD 10/25/2022 4:12 PM Addendum OK for surgery. Do not take your lisinopril the day before and the day of surgery. Continue your other medications. Check blood work today. Return in 6 months with an echocardiogram. Andreas Del Cid MD 11/02/2022 10:08 AM Signed [facility] [place] Jose Martin Silva Department of Cardiovascular Medicine SECTION OF CARDIOVASCULAR IMAGING OUTPATIENT VISIT DATE October 26, 2022 OUTPATIENT VISIT TYPE ESTABLISHED PRIMARY CARE PHYSICIAN: Francisca Thompson MD [address] [place] [address] REFERRING PHYSICIAN: Andreas Del Cid [id number] [facility] [id number] CHIEF COMPLAINT: Follow up HISTORY OF PRESENT ILLNESS: Mr. Roth is a 82 year old male who presents today for follow-up visit. His history is notable for: 1. CAD, h/o posterior STEMI c severe LAD disease, occluded Cx and RCA, s/p OTTO to LAD, SVG to PDA and SVG to OM. Coronary angiogram with patent OTTO to LAD, patent SVG to OM, and occluded SVG to RCA. 2. PAD s/p R CEA in 2011. 3. CKD. 4. Chronic systolic heart failure Since his last visit, he states that he is doing OK. He is active around the house without symptoms but is not exercising much as he is helping with his brother who has Alzheimer dementia. He denies chest pain, shortness of breath, orthopnea, cough, edema, palpitations, PND, lightheadedness or syncope. 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 ([facility]) 09/03/2022 Dyslipidemia GERD (gastroesophageal reflux disease) Heart failure, acute systolic ([facility]) Hypertension Hypothyroid Myocardial infarct, old Occlusion and stenosis of carotid artery without mention of cerebral infarction Prostate cancer ([facility]) 2020 PVD (peripheral vascular disease) ([facility]) 11/17/2012 Stroke (cerebrum) ([facility]) 09/03/2022 Systolic heart failure ([facility]) Thyroid disorder Ventricular tachycardia 04/28/2012 PAST SURGICAL HISTORY Procedure Laterality Date ANGIOGRAPHY, EXT CAROTID Right 2011 CABG (3) VEIN GRAFTS AND ARTERIAL GRAFT(S) 05/01/2012 Median sternotomy, coronary artery bypass grafting with in situ left internal thoracic artery to the LAD, and reverse saphenous vein graft to the posterior descending artery and obtuse marginal. HEART CATHETERIZATION SOCIAL HISTORY Social History Tobacco Use Smoking status: Former Packs/day: 1.00 Years: 10.00 Pack years: 10.00 Types: Cigarettes, Pipe Quit date: 04/28/1982 Years since quittin.5 Smokeless tobacco: Never Vaping Use Vaping Use: Never used Substance Use Topics Alcohol use: Yes Comment: rarely Drug use: No FAMILY HISTORY Problem Relation Age of Onset Coronary Artery Disease Father Heart Attack Father fatal [place] at age 77 other (atrial fibrillation) Mother other (CHF) Mother other (Other) Mother at age 96 Ischemic Heart Disease Brother CABGx6 first at age 72 No Known Problems Daughter No Known Problems Daughter No Known Problems Daughter other (Other) Other paternal cousin at age 50 of [place] ALLERGIES: ALLERGIES Allergen Reactions Latex Rash Adhesive Tape (Keyanna* Rash MEDICATIONS: therapeutic multivitamin w/ iron (THERAGRAN-M) 27-0.4 mg tabletTake 1 tablet by mouth once daily.Disp: Rfl: torsemide (DEMADEX) 10 mg tabletTake 1 tablet by mouth once daily.Disp: 90 tabletRfl: 3 lisinopril (ZESTRIL, PRINIVIL) 5 mg tabletTake 1 tablet by mouth once daily.Disp: 90 tabletRfl: 3 aspirin, enteric coated (ASPIRIN, ENTERIC COATED) 81 mg EC tabletTake 1 tablet by mouth once daily.Disp: Rfl: FARXIGA 10 mg tabletTake 10 mg by mouth once daily.Disp: Rfl: spironolactone (ALDACTONE) 25 mg tabletTake 12.5 mg by mouth once daily.Disp: Rfl: ezetimibe (ZETIA) 10 mg tabletTake 10 mg by mouth once daily.Disp: Rfl: metoprolol succinate ER (TOPROL XL) 25 mg 24 hr tabletTake 1 tablet by mouth once daily.Disp: 90 tabletRfl: 3 ubidecarenone Q-10 (COENZYME Q-10) 10 mg capTake 10 mg by mouth once daily.Disp: Rfl: thyroid, pork, 60 mg tabletTake 75 mg by mouth once daily.Disp: Rfl: atorvastatin (LIPITOR) 40 mg tabletTake 40 mg by mouth daily at bedtime.Disp: Rfl: 2 REVIEW OF SYSTEMS: GENERAL: Negative for: Weight loss or gain, Fever or Chills, Weakness and Sleep difficulties. HEENT: Negative for: Headache, Impaired Vision, Glasses, Hearing Impairment, Ringing in Ears, Nosebleeds, Poor dental care, B (more content not included)... Normal [facility] Comprehensive metabolic 2000 panelon 10-25-2022 Albumin [Mass/Vol] 4.0 g/dL Normal 3.9-4.9 [facility] Comment on above: Order Comment: Speci men Type: BLOOD SPECIMENOrdering Facility: [facility] Address: [address] [address] Performed By: #### 2 4323-8 ####[facility] LABCLIA [id number] [place] [address] [place] ALP [Catalytic activity/Vol] 103 U/L Normal 38-113 [facility] Comment on above: Order Comment: Speci men Type: BLOOD SPECIMENOrdering Facility: [facility] Address: [address] [address] Performed By: #### 2 4323-8 ####[facility] LABIA [id number] [address] [place] ALT [Catalytic activity/Vol] 15 U/L Normal 10-54 [facility] Comment on above: Order Comment: Speci men Type: BLOOD SPECIMENOrdering Facility: [facility] Address: [address] [address] Performed By: #### 2 4323-8 ####[facility] LABCLIA [id number] [place] [address] [place] Anion gap [Moles/Vol] 17 mmol/L Normal 9-18 [facility] Comment on above: Order Comment: Speci men Type: BLOOD SPECIMENOrdering Facility: [facility] Address: [address] [place] [address] Performed By: #### 2 4323-8 ####[facility] LABCLIA [id number] [place] [address] [place] AST [Catalytic activity/Vol] 26 U/L Normal 14-40 [facility] Comment on above: Order Comment: Speci men Type: BLOOD SPECIMENOrdering Facility: [facility] Address: [address] [place], [place] [id number] Performed By: #### 2 4323-8 ####[facility] LABCLIA [id number] [place] [address] [place] Bilirubin [Mass/Vol] 0.6 mg/dL Normal 0.2-1.3 [facility] Comment on above: Order Comment: Speci men Type: BLOOD SPECIMENOrdering Facility: [facility] Address: [address] Performed By: #### 2 4323-8 ####[facility] LABCLIA [id number] [place] [address] [place] Calcium [Mass/Vol] 10.2 mg/dL Normal 8.5-10.2 [facility] Comment on above: Order Comment: Speci men Type: BLOOD SPECIMENOrdering Facility: [facility] Address: [address] [address] Performed By: #### 2 4323-8 ####[facility] LABCLIA [id number] [place] [address] [place] Chloride [Moles/Vol] 103 mmol/L Normal 97-105 [facility] Comment on above: Order Comment: Speci men Type: BLOOD SPECIMENOrdering Facility: [facility] Address: [address] [place] [address] Performed By: #### 2 4323-8 ####[facility] LABCLIA [id number] [place] [address] [place] CO2 [Moles/Vol] 20 mmol/L Low 22-30 [facility] Comment on above: Order Comment: Speci men Type: BLOOD SPECIMENOrdering Facility: [facility] Address: [address] [place] [address] Performed By: #### 2 4323-8 ####[facility] LABCLIA [id number] [place] [address] [place] Creatinine [Mass/Vol] 1.89 mg/dL High 0.73-1.22 [facility] Comment on above: Order Comment: Speci men Type: BLOOD SPECIMENOrdering Facility: [facility] Address: [address] [place] [address] Performed By: #### 2 4323-8 ####[facility] LABCLIA [id number] [place] [address] [place] ESTIMATED GLOMERULAR FILTRATION RATE 35 mL/min/1.73m??? Low >=60 [facility] Comment on above: Order Comment: Speci men Type: BLOOD SPECIMENOrdering Facility: [facility] Address: [address] [place] [address] Result Comment: Etta mated Glomerular Filtration Rate (eGFR) is calculated using the 2020 CKD-EPI creatinine equation. This equation utilizes serum creatinine, sex, and age as parameters. The creatinine assay has traceable calibration to isotope dilution-mass spectrometry. Refer to KDIGO guidelines for clinical interpretation. In patients with unstable renal function, e.g. those with acute kidney injury, the eGFR may not accurately reflect actual GFR. Performed By: #### 2 4323-8 ####[facility] LABCLIA [id number] [address] [address] [place] Glucose [Mass/Vol] 103 mg/dL High 74-99 [facility] Comment on above: Order Comment: Speci men Type: BLOOD SPECIMENOrdering Facility: [facility] Address: [address] [id number] Result Comment: The [place] [employer] (ADA) provides guidance for cutoff values for fasting glucose and random glucose. The ADA defines fasting as no caloric intake for at least 8 hours. Fasting plasma glucose results between 100 to 125 mg/dL indicate increased risk for diabetes (prediabetes). Fasting plasma glucose results greater than or equal to 126 mg/dL meet the criteria for diagnosis of diabetes. In the absence of unequivocal hyperglycemia, results should be confirmed by repeat testing. In a patient with classic symptoms of hyperglycemia or hyperglycemic crisis, random plasma glucose results greater than or equal to 200 mg/dL meet the criteria for diagnosis of diabetes. Reference: Standards of Medical Care in Diabetes 2016, [place] [employer]. Diabetes Care. 2016.39(Suppl 1). Performed By: #### 2 4323-8 ####[facility] LABCLIA [id number] [place] [address] [place] Potassium [Moles/Vol] 5.5 mmol/L High 3.7-5.1 [facility] Comment on above: Order Comment: Speci men Type: BLOOD SPECIMENOrdering Facility: [facility] Address: [address] [place] [address] Performed By: #### 2 4323-8 ####[facility] LABCLIA [id number] [address] [address] [place] Protein [Mass/Vol] 7.7 g/dL Normal 6.3-8.0 [facility] Comment on above: Order Comment: Speci men Type: BLOOD SPECIMENOrdering Facility: [facility] Address: [address] [address] Performed By: #### 2 4323-8 ####[facility] LABCLIA [id number] [place] [address] [place] Sodium [Moles/Vol] 140 mmol/L Normal 136-144 [facility] Comment on above: Order Comment: Speci men Type: BLOOD SPECIMENOrdering Facility: [facility] Address: [address] [address] Performed By: #### 2 4323-8 ####[facility] LABCLIA [id number] [place] [address] [place] Urea nitrogen [Mass/Vol] 40 mg/dL High 9-24 [facility] Comment on above: Order Comment: Speci men Type: BLOOD SPECIMENOrdering Facility: [facility] Address: [address] [place] [address] Performed By: #### 2 4323-8 ####[facility] LABIA [id number] [place] [address] [place] GLUCOSE, BLOOD (POC)on 10-25 Glucose [Mass/Vol] 94 mg/dL 74 - 99 mg/dL [facility] Glucose [Mass/Vol] 101 mg/dL Abnormal 74 - 99 mg/dL [facility] NM PET/CT CARD PERF REST/STR ESSon 10-25-2022 NM PET/CT CARD PERF REST/STRESS * * *Final Report* * * DATE OF EXAM: Oct 25 2022 3:26PM [facility] 0109 - NM PET/CT CARD PERF REST/STRESS / PROCEDURE REASON: multiple diagnoses * * * * Physician Interpretation * * * * Stress Booster Pump Oiler Report: [facility] GOLDIE-2 Date of service: 10/25/2022 1:23:04 PM Supervising physician: Cindy Prince MD PATIENT: Name: MR. JOSÉ MIGUEL ROTH Age: 82 years Gender: M The supervising physician was in the department and immediately available. Final PATIENT: Name: MR. JOSÉ MIGUEL ROTH JR. Age: 82 years Gender: M CONCLUSIONS: 1. SPECT Perfusion Study: Abnormal. 2. There is mild (<10%) ischemia in the territory of the LCX. 3. There is a small area of hibernating myocardium in the LAD. 4. There is a medium (10-20%) area of hibernating myocardium in the LCX. 5. There is evidence of a small (<10%) scar in the territory of the LCX. 6. Left ventricle is severely dilated. The left ventricle systolic function is severely decreased. 7. Right ventricle is mildly dilated. The right ventricle systolic function is moderately decreased. 8. This is a high risk scan due to calculated LVEF and area of scar/ischemia. Gated Stress TOF:SC:CTAC Gated Rest TOF:SC:CTAC LVEF % 20 18 Prior Study Comparison No prior nuclear cardiology exam available for comparison. Nuclear Med Report:Gated Rb-82 Regadenoson Stress PET and FDG Viability Study: The patient was injected with Rb-82 at rest, and ECG gated tomographic images were obtained. Approximately 10 minutes later, the patient received 0.4 mg of regadenoson, via rapid IV push, immediately followed by Rb-82 30 seconds after starting the regadenoson infusion; and ECG gated tomographic images were obtained. See administered doses below. At rest, the blood glucose was 101 mg/dl. [facility] [place] Date of service: 10/25/2022 1:23:04 PM Ordering Physician: ANDREAS DEL CID. Requesting Physician: ANDREAS DEL CID Indication: Viability/ischemia assessment in ischemic cardiomyopathy Fellow: Kristina Tobias MD Interpreting physician: Cindy Prince MD Previous Cardiovascular Interventions: CABG (04/2012) ICD implant (2018) Diagnostic cath (05/17/2022) Carotid surgery (2011) Height: 182.88 cm BSA: 2.09 m? Weight: 86.18 kg BMI: 25.8 kg/m? CT Dose-Length Product(DLP): 69.0 mGy*cm. CT Dose Reduction Employed: Yes. Exam Type: Rest Stress Viability Radiopharm: Rb-82 Rb-82 F-18 FDG Dosage(mCi): 30.0 30.1 9.2 Atten Correction: performed performed performed Stress Agent: Regadenoson 0.4mg Supply provided from [facility] Rest Glucose: 101 mg/dl Resting Blood Press: 132/59 mmHg Image Quality The overall study imaging quality was deemed to be good. FINDINGS: Stress TOF:3D:SC:CTAC Gated Stress TOF:SC:CTAC Gated Rest TOF:SC:CTAC LVEF: 20 % 18 % ED Volume: 318 ml 319 ml ES Volume: 253 ml 260 ml EDv Index: 153 ml/m? 153 ml/m? ESv Index: 122 ml/m? 125 ml/m? TID: 1.07 Perfusion Findings Stress TOF:3D:SC:CTAC - Summed Score=22 There is a severe perfusion defect in the posterior wall, mid anterolateral segment, mid anterior segment, and basal inferior segment. There is a moderate perfusion defect in the apical lateral segment, basal anterolateral segment, and apical anterior segment. There is a mild perfusion defect in the mid inferior segment. All remaining scored segments show normal perfusion. Rest TOF:3D:SC:CTAC - Summed Score=16 There is a severe perfusion defect in the posterior wall. There is a moderate perfusion defect in the adi-lateral wall and basal inferior segment. There is a mild perfusion defect in the mid and distal anterior wall, apical lateral segment, and mid inferior segment. All remaining scored segments show normal perfusion. Stress TOF:3D:SC:CTAC Rest TOF:3D:SC:CTAC Summed Score=22 Summed Score=16 FDG- There is evidence of scarred myocardium in the posterior wall. There is evidence of viable myocardium in the mid and distal anterior wall, adi-lateral wall, and apical lateral segment. FDG LEFT VENTRICLE The left ventricle is severely dilated. Left ventricular systolic function is severely decreased. Right Ventricle The right ventricle is mildly dilated. Right ventricle systolic function is moderately decreased. Stress Test Findings: Positron Emission Narinder Test Findings: Comment: Myocardial blood flow not reported due to low EF. Final [facility] Report: [facility] Date of service: 10/25/2022 1:23:04 PM CTA interpreting physician: Cindy Prince MD PATIENT: Name: MR. JOSÉ MIGUEL ROTH JR. (more content not included)... Normal [facility] PET/CT CARDIAC VIABILITYo n 10-25-2022 NM PET/CT CARDIAC VIABILITY * * *Final Report* * * DATE OF EXAM: Oct 25 2022 3:26PM [facility] 0102 - NM PET/CT CARDIAC VIABILITY / PROCEDURE REASON: multiple diagnoses * * * * Physician Interpretation * * * * Stress Booster Pump Oiler Report: [facility] Date of service: 10/25/2022 1:23:04 PM Supervising physician: Cindy Prince MD PATIENT: Name: MR. JOSÉ MIGUEL ROTH JR. Age: 82 years Gender: M The supervising physician was in the department and immediately available. Final PATIENT: Name: MR. JOSÉ MIGUEL ROTH JR. Age: 82 years Gender: M CONCLUSIONS: 1. SPECT Perfusion Study: Abnormal. 2. There is mild (<10%) ischemia in the territory of the LCX. 3. There is a small area of hibernating myocardium in the LAD. 4. There is a medium (10-20%) area of hibernating myocardium in the LCX. 5. There is evidence of a small (<10%) scar in the territory of the LCX. 6. Left ventricle is severely dilated. The left ventricle systolic function is severely decreased. 7. Right ventricle is mildly dilated. The right ventricle systolic function is moderately decreased. 8. This is a high risk scan due to calculated LVEF and area of scar/ischemia. Gated Stress TOF:SC:CTAC Gated Rest TOF:SC:CTAC LVEF % 20 18 Prior Study Comparison No prior nuclear cardiology exam available for comparison. Nuclear Med Report:Gated Rb-82 Regadenoson Stress PET and FDG Viability Study: The patient was injected with Rb-82 at rest, and ECG gated tomographic images were obtained. Approximately 10 minutes later, the patient received 0.4 mg of regadenoson, via rapid IV push, immediately followed by Rb-82 30 seconds after starting the regadenoson infusion; and ECG gated tomographic images were obtained. See administered doses below. At rest, the blood glucose was 101 mg/dl. [facility] Date of service: 10/25/2022 1:23:04 PM Ordering Physician: ANDREAS DEL CID. Requesting Physician: ANDREAS DEL CID Indication: Viability/ischemia assessment in ischemic cardiomyopathy Fellow: Kristina Tobias MD Interpreting physician: Cindy Prince MD Previous Cardiovascular Interventions: CABG (04/2012) ICD implant (2018) Diagnostic cath (05/17/2022) Carotid surgery (2011) Height: 182.88 cm BSA: 2.09 m? Weight: 86.18 kg BMI: 25.8 kg/m? CT Dose-Length Product(DLP): 69.0 mGy*cm. CT Dose Reduction Employed: Yes. Exam Type: Rest Stress Viability Radiopharm: Rb-82 Rb-82 F-18 FDG Dosage(mCi): 30.0 30.1 9.2 Atten Correction: performed performed performed Stress Agent: Regadenoson 0.4mg Supply provided from [facility] Rest Glucose: 101 mg/dl Resting Blood Press: 132/59 mmHg Image Quality The overall study imaging quality was deemed to be good. FINDINGS: Stress TOF:3D:SC:CTAC Gated Stress TOF:SC:CTAC Gated Rest TOF:SC:CTAC LVEF: 20 % 18 % ED Volume: 318 ml 319 ml ES Volume: 253 ml 260 ml EDv Index: 153 ml/m? 153 ml/m? ESv Index: 122 ml/m? 125 ml/m? TID: 1.07 Perfusion Findings Stress TOF:3D:SC:CTAC - Summed Score=22 There is a severe perfusion defect in the posterior wall, mid anterolateral segment, mid anterior segment, and basal inferior segment. There is a moderate perfusion defect in the apical lateral segment, basal anterolateral segment, and apical anterior segment. There is a mild perfusion defect in the mid inferior segment. All remaining scored segments show normal perfusion. Rest TOF:3D:SC:CTAC - Summed Score=16 There is a severe perfusion defect in the posterior wall. There is a moderate perfusion defect in the adi-lateral wall and basal inferior segment. There is a mild perfusion defect in the mid and distal anterior wall, apical lateral segment, and mid inferior segment. All remaining scored segments show normal perfusion. Stress TOF:3D:SC:CTAC Rest TOF:3D:SC:CTAC Summed Score=22 Summed Score=16 FDG- There is evidence of scarred myocardium in the posterior wall. There is evidence of viable myocardium in the mid and distal anterior wall, adi-lateral wall, and apical lateral segment. FDG LEFT VENTRICLE The left ventricle is severely dilated. Left ventricular systolic function is severely decreased. Right Ventricle The right ventricle is mildly dilated. Right ventricle systolic function is moderately decreased. Stress Test Findings: Positron Emission Narinder Test Findings: Comment: Myocardial blood flow not reported due to low EF. Final [facility] Report: [facility] Date of service: 10/25/2022 1:23:04 PM [facility] interpreting physician: Cindy Prince MD PATIENT: Name: MR. SCHUSTER Larry Gallardo (more content not included)... Normal [facility] NT-proBNP [facility] 10-25 Natriuretic peptide.B prohormone N-Terminal [Mass/Vol] 5553 pg/mL High <450 [facility] Comment on above: Order Comment: Speci men Type: BLOOD SPECIMENOrdering Facility: [facility] Address: [address] [place] [address], [place] [address] Performed By: #### 3 3762-6 ####[facility] LABCLIA [id number] [id number], [place] [address] [facility] [place] No Panel Informationon 10-[address] [facility] CNOVon 10-02-2022 CNOV Office Visit (RADTSA ) JOSÉ MIGUEL ROTH JR. 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 and repeat biopsy showing Thayer 7 (3+4) adenocarcinoma. Okay RADIATION SUMMARY: DATES OF TREATMENT: 10/23/2021 to 12/19/2019 AREA TREATED: Pelvis Prostate DELIVERED DOSE: Area: Pelvis Prostate 4,600 cGy in 23 fractions, 3 Maxwell, IMRT, 10MV with daily CBCT Area: Pelvis Prostate Boost 3,200 cGy in 16 fractions, 2 Maxwell, IMRT, 10MV with daily CBCT TOTAL: 7,800 cGy in 39 Fractions ELAPSED TIME: 56 days. INTERVAL HISTORY: The patient presents for routine follow-up. He is still struggling with separation issues loss of his last year. He does have family support close by. He states that he has been eating fairly well. Denies any bowel or bladder related changes. PSA HISTORY: PSA (ng/mL) Date Value 04/19/2022 <0.02 01/15/2022 <0.02 11/09/2021 0.16 09/05/2021 36.20 PSA. (no units) Date Value 09/12/2022 <0.13 10/21/2018 12.30 ALLERGIES Allergen Reactions Latex Rash Adhesive Tape (Keyanna* Rash therapeutic multivitamin w/ iron (THERAGRAN-M) 27-0.4 mg tabletTake 1 tablet by mouth once daily.Disp: Rfl: torsemide (DEMADEX) 10 mg tabletTake 1 tablet by mouth once daily.Disp: 90 tabletRfl: 3 lisinopril (ZESTRIL, PRINIVIL) 5 mg tabletTake 1 tablet by mouth once daily.Disp: 90 tabletRfl: 3 aspirin, enteric coated (ASPIRIN, ENTERIC COATED) 81 mg EC tabletTake 1 tablet by mouth once daily.Disp: Rfl: FARXIGA 10 mg tabletTake 10 mg by mouth once daily.Disp: Rfl: spironolactone (ALDACTONE) 25 mg tabletTake 12.5 mg by mouth once daily.Disp: Rfl: ezetimibe (ZETIA) 10 mg tabletTake 10 mg by mouth once daily.Disp: Rfl: metoprolol succinate ER (TOPROL XL) 25 mg 24 hr tabletTake 1 tablet by mouth once daily.Disp: 90 tabletRfl: 3 ZINC ORALTake by mouth.Disp: Rfl: ascorbic acid (VITAMIN C ORAL)Take by mouth.Disp: Rfl: TURMERIC ORALTake by mouth.Disp: Rfl: Cholecalciferol, Vitamin D3, 25 mcg (1,000 unit) capTake 1,000 Units by mouth once daily. 2,000Disp: Rfl: ubidecarenone Q-10 (COENZYME Q-10) 10 mg capTake 10 mg by mouth once daily.Disp: Rfl: thyroid, pork, 60 mg tabletTake 60 mg by mouth once daily.Disp: Rfl: atorvastatin (LIPITOR) 40 mg tabletTake 40 mg by mouth daily at bedtime.Disp: Rfl: 2 REVIEW OF SYSTEMS: D/N = 4-5/1-2 Hematuria: none Dysuria: none Incontinence: none Urgency: mild Catheter use: none Medications to aid urination: no - Total AUA Score: 1.5 Bowel movement frequency: 1/day Bowel movement quality: normal Blood per rectum: none Last colonoscopy: na Androgen deprivation: Lupron/Casodex has stopped PHYSICAL EXAM: BP 113/71 Pulse 66 Temp (!) 35.9 ?C (96.7 ?F) Resp 18 Wt 86.2 kg (190 lb) SpO2 98% BMI 25.77 kg/m? KPS: 100 General Appearance: Alert and oriented. No acute distress. Rectal exam is deferred. ASSESSMENT/PLAN: Prostate adenocarcinoma, initial PSA 8, biopsy Ivory score 3 + 4 = 7 (grade group 2), clinical stage T1c, N0, M0, stage IIB [T1-T2, N0, M0, PSA <20, GG 2] (AJCC 8th ed.), s/p TRUS Random biopsy, In terms of prostate cancer patient doing well without significant posttreatment problems and an undetectable PSA. Discussed available counselor or social support for ongoing grief issues. Patient states that he is getting good support with his family. Encouraged him to call should he have questions regarding this. Signed by: Yung Kim MD cc: Francisca Thompson MD [address] [place] [address] Kathie Pavon RN 10/08/2022 1:29 PM Signed AUA 1.5 Kathie Pavon RN Allergies As of Date: 10/02/2022 Noted Allergy Reaction LATEX 03/13/2019 2 - Rash ADHESIVE TAPE (ROSINS) 06/16/2012 2 - Rash Date Reviewed: 09/03/2022 Reviewed by: Faith Mcduffie - Fully Assessed Reason for Visit: Prostate Cancer [590] Primary Visit Diagnosis:Malignant neoplasm of prostate (HCC) [C61] Order(s):PSA (OUTSIDE) [5273395] Order #: [id number] PSA/PROSTSPECAG DIAG [SQPSA] Order #: [id number] FUTURE Prescriptions as of (more content not included)... Normal [facility] BNPon 12-15-2022 Natriuretic peptide B (Bld) [Mass/Vol] 5149.0 pg/mL Critically high <=1,800.0 Comment on above: Performed By: #### B MP, BNP #### [facility] [address] [place] [address] Dr. Silva Burnett PROF CHEM 8 (BAS METB)on Anion gap [Moles/Vol] 9.3 mmol/L Normal Comment on above: Performed By: #### B MP, BNP #### [facility] [address] [place] [address] Dr. Silva Burnett Calcium [Mass/Vol] 9.5 mg/dL Normal 8.5-10.1 [facility] Comment on above: Performed By: #### B MP, BNP #### [facility] [address] [place] [address] Dr. Silva Burnett Chloride [Moles/Vol] 103 mmol/L Normal 98-107 Comment on above: Performed By: #### B MP, BNP #### [facility] [address] [place] [address] Dr. Silva Burnett CO2 [Moles/Vol] 30.2 mmol/L Normal 21.0-32.0 [facility] Comment on above: Performed By: #### B MP, BNP #### [facility] [address] [place] [address] Dr. Silva Burnett Creatinine [Mass/Vol] 1.86 mg/dL Critically high 0.70-1.30 Comment on above: Performed By: #### B MP, BNP #### [facility] [address] [place] [address] Dr. Silva Burnett EGFR-AF SPANISH 43 mL/min/1.73m2 Critically low >=60 [facility] Comment on above: Performed By: #### B MP, BNP #### [facility] [address] [place] [address] Dr. Silva Burnett EGFR-NON AF SPANISH 35 mL/min/1.73m2 Critically low >=60 [facility] Comment on above: Performed By: #### B MP, BNP #### [facility] [address] [address] [address] Silva Burnett Glucose [Mass/Vol] 108 mg/dL Critically high 74-106 [facility] Comment on above: Performed By: #### B MP, BNP #### [facility] [address] [address] [address] Silva Burnett Potassium [Moles/Vol] 4.5 mmol/L Normal 3.5-5.1 Comment on above: Performed By: #### B MP, BNP #### [facility] [address] [address] [address] Silva Burnett Sodium [Moles/Vol] 138 mmol/L Normal 136-145 [facility] Comment on above: Performed By: #### B MP, BNP #### [facility] [address] [place] [address] Dr. Silva Burnett Urea nitrogen [Mass/Vol] 27.0 mg/dL Critically high 7.0-18.0 Comment on above: Performed By: #### B MP, BNP #### [facility] [address] [place] [address] Dr. Silva Burnett Urea nitrogen/Creatinine [Mass ratio] 14.5 mg/mg Normal Comment on above: Performed By: #### B MP, BNP #### [facility] [address] [place] [address] Dr. Silva Burnett ICD REMOTE CHECKon 2 AV Delay Adaptive Paced Minimum (ms) [address] [facility] AV Delay Adaptive Sensed Minimum (ms) [address] [facility] Bj RA Pacing Amplitude (volts) [address] [facility] Bj RA Pacing Polarity BI [facility] Bj RA Pacing Pulse Width (ms) 0.[address] [facility] Bj RA Sensing Amplitude (mvolts) 0.[address] [facility] Jb RA Sensing Polarity BI [facility] Bj RV Pacing Amplitude (volts) [address] [facility] Bj RV Pacing Polarity BI [facility] Bj RV Pacing Pulse Width (ms) 0.[address] [facility] Bj RV Sensing Amplitude (mvolts) 0.[address] [facility] Bj RV Sensing Polarity BI [facility] Detection Configuration (Vent) 2 - Zone [facility] FastVT_Detection Interval [address] [facility] FastVT_Therapy Configuration 1 ATP(s) + 8 Shock(s) [facility] ICD FastVT DetectionStatus ENABLED [facility] ICD-AMS EPISODES 170 {beats}/min [facility] ICD-ATP Episodes (Vent) [address] [facility] ICD-ATRIALFIBRILLAT ION [address] [facility] ICD-ATRIALTACHYCARD IA [address] [facility] ICD-Device Mfg BSX [facility] ICD-Fast Ventricular Tachycardia [address] [facility] ICD-LEADIMPEDANCEAT RIAL [address] [facility] ICD-Percent Pacing (Atrial) 0 % [facility] ICD-Percent Pacing (Vent) 0 % [facility] ICD-Shocks Aborted (Vent) [address] [facility] IDY-EUUPNZ-VRJBWCHM D [address] [facility] ICD-SHOCKSABORTED 0 [facility] ICD-SHOCKSDELIVERED VENTRICULAR [address] [facility] ICD-Ventricular Fibrillation [address] [facility] Lead Impedance (RV) 431 ohm [facility] Lead Impedance High Voltage [address] [facility] Lead1 Mfg BSX [facility] Lead2 Mfg BSX [facility] Location RV [facility] Location RA [facility] Lower Rate (bpm) 50 {beats}/min [facility] Max Sensor Rate (bpm) 130 {beats}/min [facility] MDT_PROG_TACHY_ZONE _DETECTIONS_STATUS ENABLED [facility] Model D142 INOGEN [facility] Model 0675 [place] 4-Front [facility] Model 7741 Ingevity [facility] Pacing Mode DDDR [facility] Serial Number [id number] [facility] Serial Number [id number] [facility] Serial Number [id number] [facility] Test Charge Energy 23 J [facility] Test Charge Time 10.1 s [facility] Therapy Status (Vent) Enabled [facility] Thresh RA Capture Amplitude (volts) 0.[address] [facility] Thresh RA Capture Duration (ms) 0.[address] [facility] Thresh RV Capture Amplitude (VOLTS) 0.[address] [facility] Thresh RV Capture Duration (MS) 0.[address] [facility] Tracking Rate (bpm) 130 {beats}/min [facility] VF Zone Detection Interval [address] [facility] VF Zone Therapy Configuration 1 ATP(s) + 8 Shock(s) [facility] No Panel Informationon 08-07 BLANK _ [facility] ICD-ATRIALTACHYCARD IA [address] [facility] ICD-Fast Ventricular Tachycardia [address] [facility] Implant Date 03/24/2019 [facility] Documentationon 07-26-2022 Documentation [id number] Pramod Roth 1940 M Date Provider Department Center 07/26/2022 NELDA VIVEROS [facility] [place] Count Family History Problem Relation Age of Onset Coronary artery disease Father Coronary artery disease Brother Family Status - Relation Status Age at Father Brother Normal [facility] BNPon 07-23-2022 Natriuretic peptide B (Bld) [Mass/Vol] 5638.0 pg/mL Critically high <=1,800.0 Comment on above: Performed By: #### B MP, BNP, LIPID #### [facility] [address] [address] [address] Silva Burnett Follow-Upon 07-23-2022 Follow-Up [id number] Pramod Roth 1940 Date Provider Department Center 07/23/2022 MALAIKA ARELLANO [facility] Family History Problem Relation Age of Onset Coronary artery disease Father Coronary artery disease Brother Family Status - Relation Status Age at Father Brother Level of Service:81517 [place] OFFICE/OUTPATIENT ESTABLISHED MOD MDM 30-39 MIN Normal [facility] LIPID PROFILEon 07-23-2022 CHOL-HDL RATIO NORM SEE BELOW Normal [facility] Comment on above: Result Comment: 3.3 - 4.4 LOW RISK 4.4 - 7.1 AVERAGE RISK 7.1 - 11.0 MODERATE RISK >11.0 HIGH RISK Performed By: #### B MP, BNP, LIPID #### [facility] [address] [address] [address] Silva Burnett Cholesterol [Mass/Vol] 126 mg/dL Normal <=200 Comment on above: Performed By: #### B MP, BNP, LIPID #### [facility] [address] [place], [place] [address] Dr. Silva Burnett Cholesterol in HDL [Mass/Vol] 51 mg/dL Normal 40-60 Comment on above: Performed By: #### B MP, BNP, LIPID #### [facility] [address] [address] [address] Silva Burnett Cholesterol in LDL [Mass/Vol] 61.4 mg/dL Normal Comment on above: Performed By: #### B MP, BNP, LIPID #### [facility] [address] [address] [address] Silva Burnett Cholesterol.total/C holesterol in HDL [Mass ratio] 2.5 {ratio} Normal Comment on above: Performed By: #### B MP, BNP, LIPID #### [facility] [address] [address] [address] Silva Burnett HDL NORMAL > or = 60 mg/dl - LO W CARDIOVASCULAR RISK <40 mg/dl - HIGH CARDIOVASCULAR RISK Normal Comment on above: Performed By: #### B MP, BNP, LIPID #### [facility] [address] [address] [address] Silva Burnett LDL CALC NORMAL SEE BELOW Normal [facility] Comment on above: Result Comment: <100 mg/dl OPTIMAL 100 - 129 mg/dl NEAR OR ABOVE OPTIMAL 130 - 159 mg/dl BORDERLINE HIGH 160 - 189 mg/dl HIGH >190 mg/dl VERY HIGH Performed By: #### B MP, BNP, LIPID #### [facility] [address] [address] [address] Silva Burnett Triglyceride [Mass/Vol] 68 mg/dL Normal <=150 [facility] Comment on above: Performed By: #### B MP, BNP, LIPID #### [facility] [address] [address] [address] Silva Burnett VLDL CALC 13.6 mg/dL Normal Comment on above: Performed By: #### B MP, BNP, LIPID #### [facility] [address] [place] [address] Dr. Silva Burnett PROF CHEM 8 (BAS METB)on Anion gap [Moles/Vol] 10.2 mmol/L Normal Comment on above: Performed By: #### B MP, BNP, LIPID #### [facility] [address] [place] [address] Dr. Silva Burnett Calcium [Mass/Vol] 9.3 mg/dL Normal 8.5-10.[address] [facility] Comment on above: Performed By: #### B MP, BNP, LIPID #### [facility] [address] [place] [address] Dr. Silva Burnett Chloride [Moles/Vol] 102 mmol/L Normal 98-107 Comment on above: Performed By: #### B MP, BNP, LIPID #### [facility] [address] [place] [address] Dr. Silva Burnett CO2 [Moles/Vol] 29.7 mmol/L Normal 21.0-32.0 [facility] Comment on above: Performed By: #### B MP, BNP, LIPID #### [facility] [address] [place] [address] Dr. Silva Burnett Creatinine [Mass/Vol] 1.68 mg/dL Critically high 0.70-1.30 Comment on above: Performed By: #### B MP, BNP, LIPID #### [facility] [address] [place] [address] Dr. Silva Burnett EGFR-AF SPANISH 48 mL/min/1.73m2 Critically low >=60 Comment on above: Performed By: #### B MP, BNP, LIPID #### [facility] [address] [place] [address] Dr. Silva Burnett EGFR-NON AF SPANISH 40 mL/min/1.73m2 Critically low >=60 Comment on above: Performed By: #### B MP, BNP, LIPID #### [facility] [address] [place] [address] Dr. Silva Burnett Glucose [Mass/Vol] 97 mg/dL Normal 74-[address] [facility] Comment on above: Performed By: #### B MP, BNP, LIPID #### [facility] [address] [place] [address] Dr. Silva Burnett Potassium [Moles/Vol] 3.9 mmol/L Normal 3.5-5.1 Comment on above: Performed By: #### B MP, BNP, LIPID #### [facility] [address] [address] [address] Silva Burnett Sodium [Moles/Vol] 138 mmol/L Normal 136-145 [facility] Comment on above: Performed By: #### B MP, BNP, LIPID #### [facility] [address] [address] [address] Silva Burnett Urea nitrogen [Mass/Vol] 28.0 mg/dL Critically high 7.0-18.0 Comment on above: Performed By: #### B MP, BNP, LIPID #### [facility] [address] [place] [address] Dr. Silva Burnett Urea nitrogen/Creatinine [Mass ratio] 16.7 mg/mg Normal Comment on above: Performed By: #### B MP, BNP, LIPID #### [facility] [address] [place] [address] Dr. Silva Burnett FREE T3on 07-18-2022 FREE T3 3.48 pg/mlL Normal 2.18-3.98 Comment on above: Performed By: #### V ITAD #### [facility] [address] [place] [address] Dr. Silva Burnett FREE T4on 07-18-2022 Free T4 [Mass/Vol] 0.76 ng/dL Normal 0.76-1.[address] [facility] Comment on above: Performed By: #### F T4 #### [facility] [address] [place] [address] Dr. Silva Burnett TSHon 07-18-2022 TSH 0.074 uIU/mL Critically low 0.358-3.740 [facility] Comment on above: Performed By: #### V ITAD #### [facility] [address] [place] [address] Dr. Silva Burnett 36on 07-04-2022 36 Janusz from [facility] cardiac rehab stopped by the office to make us aware that patient reported his dizziness to PCP (Dr. Thompson) and he advised him to hold spironolactone for now. Janusz said his BP was 100/60. He was advised to monitor his weight also. He is still taking Farxiga. Normal [facility] TESTOSTERONE, FREE,DIRECT, T OTALon 07-02-2022 Free Testosterone(Direct ) 1.2 pg/mL Critically low 6.6-18.1 [facility] Comment on above: Result Comment: Perf ormed at: BN Performed By: #### B MP, BNP #### [facility] [address] [place] [address] Dr. Silva Burnett Testosterone [Mass/Vol] 103 ng/dL Critically low 264-916 [facility] Comment on above: Result Comment: Adul t male reference interval is based on a population of healthy nonobese males (BMI <30) between 19 and 39 years old. Keisha et.al. JCEM 2017,102;1487-5410. PMID: [id number]. Performed at: CB Performed By: #### B MARQUEZ, BNP #### [facility] [address] [place] [address] Dr. Silva Burnett CORTISOLon 06-29-2022 Cortisol 9.8 ug/dL Normal [facility] Comment on above: Result Comment: Dale isol AM 6.2 - 19.4 Cortisol PM 2.3 - 11.9 Performed By: #### B MARQUEZ, BNP #### [facility] [address] [place] [address] Dr. Silva Burnett BNPon 06-27-2022 Natriuretic peptide B (Bld) [Mass/Vol] 5384.0 pg/mL Critically high <=1,800.0 [facility] Comment on above: Performed By: #### B MP, BNP #### [facility] [address] [place] [address] Dr. Silva Burnett CBC AUTO DIFFon 06-27-2022 BASO # 0.0 103/ul Normal 0.0-0.1 Comment on above: Performed By: #### B MP, BNP #### [facility] [address] [place] [address] Dr. Silva Burnett Basophils/100 WBC (Bld) 0.6 % Normal 0.2-2.0 [facility] Comment on above: Performed By: #### B MP, BNP #### [facility] [address] [place] [address] Dr. Silva Burnett EO # 0.4 103/ul Normal 0.0-0.7 [facility] Comment on above: Performed By: #### B MP, BNP #### [facility] [address] [place] [address] Dr. Silva Burnett Eosinophils/100 WBC (Bld) 8.0 % Critically high 0.9-7.0 [facility] Comment on above: Performed By: #### B MP, BNP #### [facility] [address] [place] [address] Dr. Silva Burnett Erythrocyte distribution width (RBC) [Ratio] 15.3 % Critically high 11.0-15.0 Comment on above: Performed By: #### B MP, BNP #### [facility] [address] [place] [address] Dr. Silva Burnett Hematocrit (Bld) [Volume fraction] 41.0 % Critically low 42.0-54.0 [facility] Comment on above: Performed By: #### B MP, BNP #### [facility] [address] [place] [address] Dr. Silva Burnett Hemoglobin (Bld) [Mass/Vol] 12.8 g/dL Critically low 14.0-18.0 [facility] Comment on above: Performed By: #### B MP, BNP #### [facility] [address] [place] [address] Dr. Silva Burnett IG # 0.02 10e3/ul Normal 0.00-0.03 [facility] Comment on above: Performed By: #### B MP, BNP #### [facility] [address] [place] [address] Dr. Silva Burnett IG % 0.4 % Normal 0.0-0.5 [facility] Comment on above: Performed By: #### B MP, BNP #### [facility] [address] [place] [address] Dr. Silva Burnett LYMPH # 1.3 103/ul Normal 1.2-3.8 [facility] Comment on above: Performed By: #### B MP, BNP #### [facility] [address] [place] [address] Dr. Silva Burnett Lymphocytes/100 WBC (Bld) 25.8 % Normal 20.5-60.0 [facility] Comment on above: Performed By: #### B MP, BNP #### [facility] [address] [place] [address] Dr. Silva Burnett MANUAL DIFF REQ NO Normal [facility] Comment on above: Performed By: #### B MP, BNP #### [facility] [address] [place] [address] Dr. Silva Burnett MCH (RBC) [Entitic mass] 28.9 pg Normal 25.9-34.0 [facility] Comment on above: Performed By: #### B MP, BNP #### [facility] [address] [place] [address] Dr. Silva Burnett MCHC (RBC) [Mass/Vol] 31.2 g/dL Normal 29.9-35.2 [facility] Comment on above: Performed By: #### B MP, BNP #### [facility] [address] [place] [address] Dr. Silva Burnett MCV (RBC) [Entitic vol] 92.6 fL Normal 80.0-94.0 [facility] Comment on above: Performed By: #### B MP, BNP #### [facility] [address] [place] [address] Dr. Silva Burnett MONO # 0.6 103/ul Normal 0.3-0.8 [facility] Comment on above: Performed By: #### B MP, BNP #### [facility] [address] [place] [address] Dr. Silva Burnett Monocytes/100 WBC (Bld) 11.1 % Normal 1.7-12.0 Comment on above: Performed By: #### B MP, BNP #### [facility] [address] [address] [address] Silva Burnett NEUT # 2.8 103/ul Normal 1.4-6.5 Comment on above: Performed By: #### B MP, BNP #### [facility] [address] [address] [address] Silva Burnett Neutrophils/100 WBC (Bld) 54.1 % Normal 43.0-75.0 Comment on above: Performed By: #### B MP, BNP #### [facility] [address] [address] [address] Silva Burnett Platelet mean volume (Bld) [Entitic vol] 10.0 fL Normal 9.5-13.5 Comment on above: Performed By: #### B MP, BNP #### [facility] [address] [place] [address] Dr. Silva Burnett PLT 144 103/ul Critically low 150-450 [facility] Comment on above: Performed By: #### B MP, BNP #### [facility] [address] [place] [address] Dr. Silva Burnett RBC 4.43 106/ul Critically low 4.70-6.10 [facility] Comment on above: Performed By: #### B MP, BNP #### [facility] [address] [place] [address] Dr. Silva Burnett WBC 5.1 103/ul Normal 4.0-11.0 Comment on above: Performed By: #### B MP, BNP #### [facility] [address] [place] [address] Dr. Silva Burnett PROF CHEM 8 (BAS METB)on Anion gap [Moles/Vol] 10.2 mmol/L Normal Comment on above: Performed By: #### B MP, BNP #### [facility] [address] [place] [address] Dr. Silva Burnett Calcium [Mass/Vol] 8.9 mg/dL Normal 8.5-10.1 [facility] Comment on above: Performed By: #### B MP, BNP #### [facility] [address] [address] [address] Silva Burnett Chloride [Moles/Vol] 104 mmol/L Normal 98-107 Comment on above: Performed By: #### B MP, BNP #### [facility] [address] [address] [address] Silva Burnett CO2 [Moles/Vol] 27.1 mmol/L Normal 21.0-32.0 [facility] Comment on above: Performed By: #### B MP, BNP #### [facility] [address] [address] [address] Silva Burnett Creatinine [Mass/Vol] 1.61 mg/dL Critically high 0.70-1.30 Comment on above: Performed By: #### B MP, BNP #### [facility] [address] [address] [address] Silva Burnett EGFR-AF SPANISH 50 mL/min/1.73m2 Critically low >=60 Comment on above: Performed By: #### B MP, BNP #### [facility] [address] [address] [address] Silva Burnett EGFR-NON AF SPANISH 41 mL/min/1.73m2 Critically low >=60 Comment on above: Performed By: #### B MP, BNP #### [facility] [address] [address] [address] Silva Burnett Glucose [Mass/Vol] 89 mg/dL Normal 74-[address] [facility] Comment on above: Performed By: #### B MP, BNP #### [facility] [address] [address] [address] Silva Burnett Potassium [Moles/Vol] 4.3 mmol/L Normal 3.5-5.1 Comment on above: Performed By: #### B MP, BNP #### [facility] [address] [address] [address] Silva Burnett Sodium [Moles/Vol] 137 mmol/L Normal 136-145 [facility] Comment on above: Performed By: #### B MP, BNP #### [facility] [address] [address] [address] Silva Burnett Urea nitrogen [Mass/Vol] 28.0 mg/dL Critically high 7.0-18.0 Comment on above: Performed By: #### B MP, BNP #### [facility] [address] [address] [address] Silva Burnett Urea nitrogen/Creatinine [Mass ratio] 17.4 mg/mg Normal Comment on above: Performed By: #### B MP, BNP #### [facility] [address] [place] [address] Dr. Silva Burnett VITAMIN D 25 OHon 06-27-2022 VIT D 25-OH 85.2 ng/mL Normal Comment on above: Performed By: #### V ITAD #### [facility] [address] [address] [address] Silva Burnett VIT D RANGES SEE BELOW Normal Comment on above: Result Comment: <20 ng/mL Vit D deficient 20 - <30 ng/mL Vit D insufficient 30 - 100 ng/mL Vit D sufficient >100 ng/mL Potential Toxicity Performed By: #### V ITAD #### [facility] [address] [place] [address] Dr. Silva Burnett 36on 06-26-2022 36 Patient called c/o lightheadedness/dizziness. He thinks it's the Farxiga. Says his BP has been fine . Says episodes only last 2-3 seconds at a time. Denies falling. Says it was more consistent last night, sometimes has it when he lies down and room is spinning . Any suggestions? Please advise. Thank you. 06/29/22) spoke with patient and made him aware. He verbalized understanding. Normal [facility] Telephoneon 06-26-2022 Telephone [id number] Pramod Roth dg Juarez 1940 M Date Provider Department Center 06/26/2022 LYNNETTE RAMSEY [facility] Family History Problem Relation Age of Onset Coronary artery disease Father Coronary artery disease Brother Family Status - Relation Status Age at Father Brother Normal [facility] CREATININEon 06-14-2022 Creatinine [Mass/Vol] 1.71 mg/dL Critically high 0.70-1.30 Comment on above: Performed By: #### B MP, BNP #### [facility] [address] [place], [place] [address] Dr. Silva Burnett EGFR-AF SPANISH 47 mL/min/1.73m2 Critically low >=60 Comment on above: Performed By: #### B MP, BNP #### [facility] [address] [place], [place] [address] Dr. Silva Burnett EGFR-NON AF SPANISH 39 mL/min/1.73m2 Critically low >=60 Comment on above: Performed By: #### B MP, BNP #### [facility] [address] [place], [place] [address] Dr. Silva Burnett CTA NECK WO W CONon 06-14-20 22 CTA NECK WO W CON EXAMINATION: CTA NEC K WO W CON HISTORY: Left carotid artery occlusion COMPARISON: No relevant comparison available. TECHNIQUE: Multiplanar CT imaging without and with IV contrast. Multi-planar/3-D imaging to optimize visualization of vascular anatomy. Percent stenosis is based on NASCET criteria. Dose reduction techniques were achieved by using automated exposure control and/or adjustment of mA and/or kV according to patient size and/or use of iterative reconstruction technique. FINDINGS: RIGHT INTERNAL CAROTID: Mild atherosclerotic disease of the bulb and proximal ICA without significant stenosis. EXTERNAL CAROTID: No hemodynamically significant stenosis or dissection. COMMON CAROTID: No hemodynamically significant stenosis or dissection. VERTEBRAL: No hemodynamically significant stenosis or dissection. LEFT INTERNAL CAROTID: Near complete occlusion of the internal and external carotid arteries involving the bulb and proximal ICA and ECA secondary to predominantly noncalcified plaque. Markedly diminutive lumen of the ECA. No detectable lumen of the ICA, but the ICA is well opacified with contrast distal to the 1.8 cm long segment suggesting a very narrow channel remains patent. EXTERNAL CAROTID: See above. COMMON CAROTID: No hemodynamically significant stenosis or dissection. VERTEBRAL: No hemodynamically significant stenosis or dissection. OTHER: The visualized soft tissues of the neck are also unremarkable. IMPRESSION: 1. 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 Electronically authenticated by: AYANA FERNANDEZ Date: 2022-06-14 16:39 Normal Telephoneon 06-08-2022 Telephone [id number] Pramod Roth 1940 M Date Provider Department Center 06/08/2022 [id number] MONAE [facility] Family History Problem Relation Age of Onset Coronary artery disease Father Coronary artery disease Brother Family Status - Relation Status Age at Father Brother Normal [facility] Orders Onlyon 06-01-2022 Orders Only [id number] Pramod Roth L 1940 M Date Provider Department Center 06/01/2022 KATHIE CHAMPION [facility] Family History Problem Relation Age of Onset Coronary artery disease Father Coronary artery disease Brother Family Status - Relation Status Age at Father Brother Normal [facility] Office Visiton 05-28-2022 Follow-up visit [id number] Pramod Roth L 1940 Date Provider Department Center 05/28/2022 Angela-MALAIKA FAUST [facility] Family History Problem Relation Age of Onset Coronary artery disease Father Coronary artery disease Brother Family Status - Relation Status Age at Father Brother Level of Service:81231 [place] OFFICE/OUTPATIENT ESTABLISHED HIGH MDM 40-54 MIN Reason for Visit and Comments: Coronary Artery Disease [187] Congestive Heart Failure [127] NSVT [Other] Claudication [131] Valve Disorder [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] Hyperlipidemia [182] Hypertension [387261] Normal [facility] Orders Onlyon 05-28-2022 Orders Only [id number] Pramod Roth L 1940 M Date Provider Department Center 05/28/2022 Nataliya8-ZUNILDA ALANIZ [facility] Family History Problem Relation Age of Onset Coronary artery disease Father Coronary artery disease Brother Family Status - Relation Status Age at Father Brother Normal [facility] Abstracton 05-26-2022 Abstract [id number] Pramod Roth L 1940 Date Provider Department Center 05/26/2022 LYNNETTE RAMSEY [facility] Family History Problem Relation Age of Onset Coronary artery disease Father Coronary artery disease Brother Family Status - Relation Status Age at Father Brother Normal [facility] BASIC METABOLIC PANELon 09-0 -2021 Calcium [Mass/Vol] 8.8 mg/dL Normal 8.6-10.3 [facility] Comment on above: Order Comment: No: D o not add to previous draw Performed By: #### 2 5508, 74133, 50259, 66287, 27628, 61814 #### [facility] [address] [place] [address], [place] Chloride [Moles/Vol] 103 mmol/L Normal 98-107 [facility] Comment on above: Order Comment: No: D o not add to previous draw Performed By: #### 2 5508, 70252, 94085, 96489, 79395, 23335 #### [facility] [address] [place] [address], [place] CO2 [Moles/Vol] 28 mmol/L Normal 21-31 [facility] Comment on above: Order Comment: No: D o not add to previous draw Performed By: #### 2 5508, 36182, 47624, 72565, 73172, 72594 #### [facility] [address] [place] [address], [place] Creatinine [Mass/Vol] 1.47 mg/dL High 0.70-1.30 [facility] Comment on above: Order Comment: No: D o not add to previous draw Performed By: #### 2 5508, 59152, 56727, 26131, 87933, 27024 #### [facility] [address] [place] [address], [place] EGFR 48 ml/min/1.73sq m Abnormal >60 [facility] Comment on above: Order Comment: No: D o not add to previous draw Result Comment: [facility]'s estimated glomerular filtration rate (eGFR) will no longer include consideration of race in its calculation. The National [employer]'s eGFR Task Force developed new recommendations for the estimation of the glomerular filtration rate in the [place] They recommend immediate implementation of the new equation refit without the race variable in all laboratories because the calculation does not include race. In addition to not including race in the calculation and reporting, it included diversity in its development, and has acceptable performance characteristics and potential consequences that do not disproportionately affect any one group of individuals. Performed By: #### 2 5508, 61938, 93158, 23997, 14255, 51466 #### [facility] [address] [place] [address], [place] Glucose [Mass/Vol] 110 mg/dL High 70-100 [facility] Comment on above: Order Comment: No: D o not add to previous draw Performed By: #### 2 5508, 80711, 31783, 09467, 51010, 55842 #### [facility] [address] [place] [address], [place] Potassium [Moles/Vol] 4.3 mmol/L Normal 3.5-5.1 [facility] Comment on above: Order Comment: No: D o not add to previous draw Performed By: #### 2 5508, 99157, 15339, 88674, 26071, 66035 #### [facility] [address] [place] [address], [place] Sodium [Moles/Vol] 136 mmol/L Normal 136-145 [facility] Comment on above: Order Comment: No: D o not add to previous draw Performed By: #### 2 5508, 95959, 29048, 98239, 98489, 89180 #### [facility] [address] [place] [address], [place] Urea nitrogen [Mass/Vol] 35 mg/dL High 7-25 [facility] Comment on above: Order Comment: No: D o not add to previous draw Performed By: #### 2 5508, 40003, 53990, 63389, 01512, 72655 #### [facility] [address] [place] [address], [facility] MAGNESIUM BLOODon 05-23-2022 Magnesium [Mass/Vol] 2.2 mg/dL Normal 1.9-2.7 [facility] Comment on above: Order Comment: No: D o not add to previous draw Performed By: #### 2 5508, 04077, 28166, 20571, 43739, 75042 #### [facility] [address] [place] [address], [facility] APTTon 05-22-2022 aPTT Coag (Bld) [Time] 28.0 s Normal 25.0-35.0 [facility] Comment on above: Order Comment: No: D o not add to previous draw Result Comment: ALL RESULTS MUST BE INTERPRETED WITH RESPECT TO BLOOD DRAWING ARTIFACT OR DILUTION ERROR OF ANTICOAGULANT AT THE TIME OF SAMPLING. THE APTT SHOULD NOT BE USED TO MONITOR UNFRACTIONATED HEPARIN THERAPY, THIS LABORATORY NO LONGER HAS AN ESTABLISHED THERAPEUTIC RANGE BASED ON THE APTT. IT IS RECOMMENDED THAT THE UFH - HEPARIN ASSAY (ANTI-XA ACTIVITY) BE USED FOR THIS PURPOSE. Performed By: #### 2 5508, 92512, 77737, 42185, 11020, 23316 #### [facility] [address] [place] [address], [facility] BASIC METABOLIC PANELon Calcium [Mass/Vol] 9.0 mg/dL Normal 8.6-10.3 [facility] Comment on above: Order Comment: No: D o not add to previous draw Performed By: #### 2 5508, 95388, 26069, 18516, 97338, 51274 #### [facility] [address] [place] [address], [facility] Chloride [Moles/Vol] 101 mmol/L Normal 98-107 [facility] Comment on above: Order Comment: No: D o not add to previous draw Performed By: #### 2 5508, 01540, 42762, 54406, 99463, 34613 #### [facility] [address] [place] [address], [facility] CO2 [Moles/Vol] 29 mmol/L Normal 21-31 [facility] Comment on above: Order Comment: No: D o not add to previous draw Performed By: #### 2 5508, 15598, 40712, 15880, 44067, 08039 #### [facility] [address] [place] [address], [facility] Creatinine [Mass/Vol] 1.67 mg/dL High 0.70-1.30 [facility] Comment on above: Order Comment: No: D o not add to previous draw Performed By: #### 2 5508, 39312, 55299, 52749, 78336, 50655 #### [facility] [address] [place] [address], [facility] EGFR 41 ml/min/1.73sq m Abnormal >60 [facility] Comment on above: Order Comment: No: D o not add to previous draw Result Comment: [facility]'s estimated glomerular filtration rate (eGFR) will no longer include consideration of race in its calculation. The National Kid[employer] Foundation's eGFR Task Force developed new recommendations for the estimation of the glomerular filtration rate in the [place] They recommend immediate implementation of the new equation refit without the race variable in all laboratories because the calculation does not include race. In addition to not including race in the calculation and reporting, it included diversity in its development, and has acceptable performance characteristics and potential consequences that do not disproportionately affect any one group of individuals. Performed By: #### 2 5508, 06847, 50103, 95294, 99359, 89990 #### [facility] [address] [place] [address], [place] Glucose [Mass/Vol] 94 mg/dL Normal 70-100 [facility] Comment on above: Order Comment: No: D o not add to previous draw Performed By: #### 2 5508, 37442, 08074, 60464, 12623, 82964 #### [facility] [address] [place] [address], [facility] Potassium [Moles/Vol] 4.8 mmol/L Normal 3.5-5.1 [facility] Comment on above: Order Comment: No: D o not add to previous draw Performed By: #### 2 5508, 92875, 30057, 08191, 07430, 63916 #### [facility] [address] [place] [address], [facility] Sodium [Moles/Vol] 136 mmol/L Normal 136-145 [facility] Comment on above: Order Comment: No: D o not add to previous draw Performed By: #### 2 5508, 46467, 97815, 96412, 25027, 59141 #### [facility] [address] [place] [address], [facility] Urea nitrogen [Mass/Vol] 39 mg/dL High 7-25 [facility] Comment on above: Order Comment: No: D o not add to previous draw Performed By: #### 2 5508, 84815, 99412, 69533, 42901, 23417 #### [facility] [address] [place] [id number], [facility] MAGNESIUM BLOODon 05-22-2022 Magnesium [Mass/Vol] 1.8 mg/dL Low 1.9-2.7 [facility] Comment on above: Order Comment: No: D o not add to previous draw Performed By: #### 2 5508, 11313, 52189, 00478, 42057, 06478 #### [facility] [address] [place] [address], [place] APTTon 05-21-2022 aPTT Coag (Bld) [Time] 30.8 s Normal 25.0-35.0 [facility] Comment on above: Order Comment: No: D o not add to previous draw Result Comment: ALL RESULTS MUST BE INTERPRETED WITH RESPECT TO BLOOD DRAWING ARTIFACT OR DILUTION ERROR OF ANTICOAGULANT AT THE TIME OF SAMPLING. THE APTT SHOULD NOT BE USED TO MONITOR UNFRACTIONATED HEPARIN THERAPY, THIS LABORATORY NO LONGER HAS AN ESTABLISHED THERAPEUTIC RANGE BASED ON THE APTT. IT IS RECOMMENDED THAT THE UFH - HEPARIN ASSAY (ANTI-XA ACTIVITY) BE USED FOR THIS PURPOSE. Performed By: #### 2 5508, 67508, 21411, 79455, 29166, 88421 #### [facility] [address] [place] [address], [facility] BASIC METABOLIC PANELon 09-0 -2021 Calcium [Mass/Vol] 8.8 mg/dL Normal 8.6-10.3 [facility] Comment on above: Order Comment: No: D o not add to previous draw Performed By: #### 2 5508, 10025, 55629, 71953, 45284, 94691 #### [facility] [address] [place] [address], [facility] Chloride [Moles/Vol] 103 mmol/L Normal 98-107 [facility] Comment on above: Order Comment: No: D o not add to previous draw Performed By: #### 2 5508, 60734, 46868, 28061, 95548, 62814 #### [facility] [address] [place] [address], [facility] CO2 [Moles/Vol] 26 mmol/L Normal 21-31 [facility] Comment on above: Order Comment: No: D o not add to previous draw Performed By: #### 2 5508, 65691, 97256, 30205, 03845, 80340 #### [facility] [address] [place] [address], [place] Creatinine [Mass/Vol] 1.47 mg/dL High 0.70-1.30 [facility] Comment on above: Order Comment: No: D o not add to previous draw Performed By: #### 2 5508, 65440, 30194, 73498, 74118, 25488 #### [facility] [address] [place] [address], [facility] EGFR 48 ml/min/1.73sq m Abnormal >60 [facility] Comment on above: Order Comment: No: D o not add to previous draw Result Comment: [facility]'s estimated glomerular filtration rate (eGFR) will no longer include consideration of race in its calculation. The National Kid[employer] Foundation's eGFR Task Force developed new recommendations for the estimation of the glomerular filtration rate in the [place] They recommend immediate implementation of the new equation refit without the race variable in all laboratories because the calculation does not include race. In addition to not including race in the calculation and reporting, it included diversity in its development, and has acceptable performance characteristics and potential consequences that do not disproportionately affect any one group of individuals. Performed By: #### 2 5508, 10725, 79237, 72419, 54192, 57864 #### [facility] [address] [place] [address], [place] Glucose [Mass/Vol] 88 mg/dL Normal 70-100 [facility] Comment on above: Order Comment: No: D o not add to previous draw Performed By: #### 2 5508, 55625, 97458, 43649, 18822, 69920 #### [facility] [address] [place] [address], [place] Potassium [Moles/Vol] 3.9 mmol/L Normal 3.5-5.1 [facility] Comment on above: Order Comment: No: D o not add to previous draw Performed By: #### 2 5508, 74387, 76181, 87514, 78581, 50716 #### [facility] [address] [place] [address], [place] Sodium [Moles/Vol] 137 mmol/L Normal 136-145 [facility] Comment on above: Order Comment: No: D o not add to previous draw Performed By: #### 2 5508, 06002, 99900, 28067, 27177, 52328 #### [facility] [address] [place] [address], [place] Urea nitrogen [Mass/Vol] 45 mg/dL High 7-25 [facility] Comment on above: Order Comment: No: D o not add to previous draw Performed By: #### 2 5508, 45278, 78885, 05499, 09073, 22341 #### [facility] [address] [place] [address], [facility] CBC COMPLETE BLOOD COUNTon 0 05-21-2022 Erythrocyte distribution width (RBC) [Ratio] 14.4 % Normal 11.5-15.0 [facility] Comment on above: Order Comment: No: D o not add to previous draw Performed By: #### 2 5508, 04235, 43626, 50443, 24539, 60005 #### [facility] [address] [place] [address], [facility] Hematocrit (Bld) [Volume fraction] 40.8 % Normal 39.0-50.0 [facility] Comment on above: Order Comment: No: D o not add to previous draw Performed By: #### 2 5508, 32676, 75968, 16896, 36463, 51973 #### [facility] [address] [place] [address], [facility] Hemoglobin (Bld) [Mass/Vol] 13.3 g/dL Normal 13.0-17.0 [facility] Comment on above: Order Comment: No: D o not add to previous draw Performed By: #### 2 5508, 15324, 96071, 66009, 82330, 61029 #### [facility] [address] [place] [address], [place] MCH (RBC) [Entitic mass] 28.4 pg Normal 27.0-33.0 [facility] Comment on above: Order Comment: No: D o not add to previous draw Performed By: #### 2 5508, 57151, 97429, 00545, 43617, 12222 #### [facility] [address] [place] [address], [place] MCHC (RBC) [Mass/Vol] 32.6 g/dL Normal 32.0-35.0 [facility] Comment on above: Order Comment: No: D o not add to previous draw Performed By: #### 2 5508, 19944, 64161, 96433, 45282, 61863 #### [facility] [address] [place] [id number], [facility] MCV (RBC) [Entitic vol] 87.0 fL Normal 82.0-98.0 [facility] Comment on above: Order Comment: No: D o not add to previous draw Performed By: #### 2 5508, 05179, 65406, 34040, 31165, 70117 #### [facility] [address] [place] [address], [facility] Nucleated RBC/100 WBC (Bld) [Ratio] 0 % Normal 0-0 [facility] Comment on above: Order Comment: No: D o not add to previous draw Performed By: #### 2 5508, 16283, 97274, 79914, 71096, 35359 #### [facility] [address] [place] [address], [facility] PLAT CNT 157 10*3/uL Normal 150-400 [facility] Comment on above: Order Comment: No: D o not add to previous draw Performed By: #### 2 5508, 10225, 43784, 31300, 59651, 99052 #### [facility] [address] [place] [address], [facility] RBC (Bld) [#/Vol] 4.69 10*6/uL Normal 4.20-5.70 [facility] Comment on above: Order Comment: No: D o not add to previous draw Performed By: #### 2 5508, 99842, 12468, 88904, 17510, 48948 #### [facility] [address] [place] [address], [place] WBC (Bld) [#/Vol] 6.19 10*3/uL Normal 4.00-10.60 [facility] Comment on above: Order Comment: No: D o not add to previous draw Performed By: #### 2 5508, 84151, 63851, 86766, 53576, 26111 #### [facility] [address] [place] [address], [facility] MAGNESIUM BLOODon 05-21-2022 Magnesium [Mass/Vol] 1.9 mg/dL Normal 1.9-2.7 [facility] Comment on above: Order Comment: No: D o not add to previous draw Performed By: #### 2 5508, 64665, 57383, 12092, 20060, 47208 #### [facility] [address] APTTon 05-20-2022 aPTT Coag (Bld) [Time] 28.4 s Normal 25.0-35.0 [facility] Comment on above: Order Comment: No: D o not add to previous draw Result Comment: ALL RESULTS MUST BE INTERPRETED WITH RESPECT TO BLOOD DRAWING ARTIFACT OR DILUTION ERROR OF ANTICOAGULANT AT THE TIME OF SAMPLING. THE APTT SHOULD NOT BE USED TO MONITOR UNFRACTIONATED HEPARIN THERAPY, THIS LABORATORY NO LONGER HAS AN ESTABLISHED THERAPEUTIC RANGE BASED ON THE APTT. IT IS RECOMMENDED THAT THE UFH - HEPARIN ASSAY (ANTI-XA ACTIVITY) BE USED FOR THIS PURPOSE. Performed By: #### 2 5508, 53503, 84773, 76982, 26090, 70979 #### [facility] [address] [place] [address], [facility] BASIC METABOLIC PANELon Calcium [Mass/Vol] 9.0 mg/dL Normal 8.6-10.3 [facility] Comment on above: Order Comment: No: D o not add to previous draw Performed By: #### 1 0070, 33521, 24019 #### [facility] [address] [place] [address], [facility] Chloride [Moles/Vol] 105 mmol/L Normal 98-107 [facility] Comment on above: Order Comment: No: D o not add to previous draw Performed By: #### 1 0070, 29235, 73241 #### [facility] [address] [place] [address], [facility] CO2 [Moles/Vol] 26 mmol/L Normal 21-31 [facility] Comment on above: Order Comment: No: D o not add to previous draw Performed By: #### 1 0070, 41584, 80178 #### [facility] [address] [place] [address], [facility] Creatinine [Mass/Vol] 1.42 mg/dL High 0.70-1.30 [facility] Comment on above: Order Comment: No: D o not add to previous draw Performed By: #### 1 0070, 52558, 23400 #### [facility] [address] [place] [address], [facility] EGFR 50 ml/min/1.73sq m Abnormal >60 [facility] Comment on above: Order Comment: No: D o not add to previous draw Result Comment: [facility]'s estimated glomerular filtration rate (eGFR) will no longer include consideration of race in its calculation. The National Kid[employer]'s eGFR Task Force developed new recommendations for the estimation of the glomerular filtration rate in the [place] They recommend immediate implementation of the new equation refit without the race variable in all laboratories because the calculation does not include race. In addition to not including race in the calculation and reporting, it included diversity in its development, and has acceptable performance characteristics and potential consequences that do not disproportionately affect any one group of individuals. Performed By: #### 1 0070, 17725, 69375 #### [facility] [address] [place] [address], [facility] Glucose [Mass/Vol] 107 mg/dL High 70-100 [facility] Comment on above: Order Comment: No: D o not add to previous draw Performed By: #### 1 0070, 38542, 66279 #### [facility] [address] [place] [address], [facility] Potassium [Moles/Vol] 3.9 mmol/L Normal 3.5-5.1 [facility] Comment on above: Order Comment: No: D o not add to previous draw Performed By: #### 1 0070, 82458, 36504 #### [facility] [address] [place] [address], [facility] Sodium [Moles/Vol] 139 mmol/L Normal 136-145 [facility] Comment on above: Order Comment: No: D o not add to previous draw Performed By: #### 1 0070, 91813, 89661 #### [facility] [address] [place] [id number], [facility] Urea nitrogen [Mass/Vol] 50 mg/dL High 7-25 [facility] Comment on above: Order Comment: No: D o not add to previous draw Performed By: #### 1 0070, 01127, 87746 #### [facility] [address] [place] [id number], [facility] CBC COMPLETE BLOOD COUNTon 0 05-20-2022 Erythrocyte distribution width (RBC) [Ratio] 14.3 % Normal 11.5-15.0 [facility] Comment on above: Order Comment: No: D o not add to previous draw Performed By: #### 2 5508, 00577, 84861, 91578, 97944, 38836 #### [facility] [address] [place] [address], [facility] Hematocrit (Bld) [Volume fraction] 44.1 % Normal 39.0-50.0 [facility] Comment on above: Order Comment: No: D o not add to previous draw Performed By: #### 2 5508, 96187, 26237, 22505, 96248, 60945 #### [facility] [address] [place] [address], [place] Hemoglobin (Bld) [Mass/Vol] 14.5 g/dL Normal 13.0-17.0 [facility] Comment on above: Order Comment: No: D o not add to previous draw Performed By: #### 2 5508, 77406, 20067, 15671, 39773, 24146 #### [facility] [address] [place] [id number], [facility] IMM PLATELET FRAC 5.4 % Normal 0.8-6.3 [facility] Comment on above: Order Comment: No: D o not add to previous draw Performed By: #### 2 5508, 91178, 88166, 64940, 83155, 59890 #### [facility] [address] [place] [id number], [facility] MCH (RBC) [Entitic mass] 29.1 pg Normal 27.0-33.0 [facility] Comment on above: Order Comment: No: D o not add to previous draw Performed By: #### 2 5508, 74095, 95649, 23519, 35979, 63563 #### [facility] [address] [place] [address], [facility] MCHC (RBC) [Mass/Vol] 32.9 g/dL Normal 32.0-35.0 [facility] Comment on above: Order Comment: No: D o not add to previous draw Performed By: #### 2 5508, 87836, 01026, 51261, 22916, 69965 #### [facility] [address] [place] [id number], [facility] MCV (RBC) [Entitic vol] 88.6 fL Normal 82.0-98.0 [facility] Comment on above: Order Comment: No: D o not add to previous draw Performed By: #### 2 5508, 25378, 30675, 42530, 53385, 56508 #### [facility] [address] [place] [id number], [facility] Nucleated RBC/100 WBC (Bld) [Ratio] 0 % Normal 0-0 [facility] Comment on above: Order Comment: No: D o not add to previous draw Performed By: #### 2 5508, 66310, 81220, 49824, 08494, 10542 #### [facility] [address] [place] [address], [facility] PLAT CNT 138 10*3/uL Low 150-400 [facility] Comment on above: Order Comment: No: D o not add to previous draw Performed By: #### 2 5508, 62097, 62599, 47982, 32503, 92534 #### [facility] [address] [place] [address], [facility] RBC (Bld) [#/Vol] 4.98 10*6/uL Normal 4.20-5.70 [facility] Comment on above: Order Comment: No: D o not add to previous draw Performed By: #### 2 5508, 69204, 78105, 79650, 66948, 59767 #### [facility] [address] [place] [id number], [facility] WBC (Bld) [#/Vol] 5.80 10*3/uL Normal 4.00-10.60 [facility] Comment on above: Order Comment: No: D o not add to previous draw Performed By: #### 2 5508, 53552, 47337, 30146, 49717, 28663 #### [facility] [address] [place] [id number], [facility] MAGNESIUM BLOODon 05-20-2022 Magnesium [Mass/Vol] 2.0 mg/dL Normal 1.9-2.7 [facility] Comment on above: Order Comment: No: D o not add to previous draw Performed By: #### 1 0070, 25417, 77694 #### [facility] [address] [place] [address], [facility] PHOSPHORUS BLOODon Phosphate [Mass/Vol] 3.5 mg/dL Normal 2.5-5.0 [facility] Comment on above: Order Comment: No: D o not add to previous draw Performed By: #### 1 0070, 08211, 79802 #### [facility] [address] [place] [address], [facility] APTTon 05-19-2022 aPTT Coag (Bld) [Time] 30.3 s Normal 25.0-35.0 [facility] Comment on above: Order Comment: No: D o not add to previous draw Result Comment: ALL RESULTS MUST BE INTERPRETED WITH RESPECT TO BLOOD DRAWING ARTIFACT OR DILUTION ERROR OF ANTICOAGULANT AT THE TIME OF SAMPLING. THE APTT SHOULD NOT BE USED TO MONITOR UNFRACTIONATED HEPARIN THERAPY, THIS LABORATORY NO LONGER HAS AN ESTABLISHED THERAPEUTIC RANGE BASED ON THE APTT. IT IS RECOMMENDED THAT THE UFH - HEPARIN ASSAY (ANTI-XA ACTIVITY) BE USED FOR THIS PURPOSE. Performed By: #### 2 5508, 36513, 58090, 63958, 67458, 50960 #### [facility] [address] [place] [address], [facility] BASIC METABOLIC PANELon Calcium [Mass/Vol] 8.5 mg/dL Low 8.6-10.3 [facility] Comment on above: Order Comment: No: D o not add to previous draw Performed By: #### 2 5508, 52628, 02599, 86249, 32449, 91195 #### [facility] [address] [place] [address], [facility] Chloride [Moles/Vol] 104 mmol/L Normal 98-107 [facility] Comment on above: Order Comment: No: D o not add to previous draw Performed By: #### 2 5508, 77372, 90066, 30053, 96615, 72603 #### [facility] [address] [place] [id number], [facility] CO2 [Moles/Vol] 24 mmol/L Normal 21-31 [facility] Comment on above: Order Comment: No: D o not add to previous draw Performed By: #### 2 5508, 94280, 74212, 91358, 32541, 13809 #### [facility] [address] [place] [address], [facility] Creatinine [Mass/Vol] 2.02 mg/dL High 0.70-1.30 [facility] Comment on above: Order Comment: No: D o not add to previous draw Performed By: #### 2 5508, 24553, 63499, 45599, 76789, 56936 #### [facility] [address] [place] [address], [facility] EGFR 33 ml/min/1.73sq m Abnormal >60 [facility] Comment on above: Order Comment: No: D o not add to previous draw Result Comment: [facility]'s estimated glomerular filtration rate (eGFR) will no longer include consideration of race in its calculation. The [employer]'s eGFR Task Force developed new recommendations for the estimation of the glomerular filtration rate in the [place] They recommend immediate implementation of the new equation refit without the race variable in all laboratories because the calculation does not include race. In addition to not including race in the calculation and reporting, it included diversity in its development, and has acceptable performance characteristics and potential consequences that do not disproportionately affect any one group of individuals. Performed By: #### 2 5508, 20334, 12918, 59815, 47481, 29922 #### [facility] [address] [place] [address], [facility] Glucose [Mass/Vol] 121 mg/dL High 70-100 [facility] Comment on above: Order Comment: No: D o not add to previous draw Performed By: #### 2 5508, 51486, 62557, 23525, 14896, 40607 #### [facility] [address] [place] [address], [facility] Potassium [Moles/Vol] 3.1 mmol/L Low 3.5-5.1 [facility] Comment on above: Order Comment: No: D o not add to previous draw Performed By: #### 2 5508, 72759, 92037, 49744, 65607, 94206 #### [facility] [address] [place] [address], [facility] Sodium [Moles/Vol] 137 mmol/L Normal 136-145 [facility] Comment on above: Order Comment: No: D o not add to previous draw Performed By: #### 2 5508, 40169, 34051, 03634, 24337, 25431 #### [facility] [address] [place] [address], [facility] Urea nitrogen [Mass/Vol] 61 mg/dL High 7-25 [facility] Comment on above: Order Comment: No: D o not add to previous draw Performed By: #### 2 5508, 61751, 74121, 85063, 16472, 03429 #### [facility] [address] CBC COMPLETE BLOOD COUNTon 0 05-19-2022 Erythrocyte distribution width (RBC) [Ratio] 14.2 % Normal 11.5-15.0 [facility] Comment on above: Order Comment: No: D o not add to previous draw Performed By: #### 2 5508, 15270, 76910, 37888, 50111, 98545 #### [facility] [address] [place] [address], [facility] Hematocrit (Bld) [Volume fraction] 41.1 % Normal 39.0-50.0 [facility] Comment on above: Order Comment: No: D o not add to previous draw Performed By: #### 2 5508, 05161, 42546, 45628, 02997, 53193 #### [facility] [address] [place] [address], [facility] Hemoglobin (Bld) [Mass/Vol] 13.8 g/dL Normal 13.0-17.0 [facility] Comment on above: Order Comment: No: D o not add to previous draw Performed By: #### 2 5508, 06911, 71359, 97881, 86488, 08245 #### [facility] [address] [place] [address], [facility] IMM PLATELET FRAC 4.8 % Normal 0.8-6.3 [facility] Comment on above: Order Comment: No: D o not add to previous draw Performed By: #### 2 5508, 73324, 47104, 67971, 61056, 54185 #### [facility] [address] [place] [id number], [facility] MCH (RBC) [Entitic mass] 29.0 pg Normal 27.0-33.0 [facility] Comment on above: Order Comment: No: D o not add to previous draw Performed By: #### 2 5508, 26854, 06249, 69009, 57069, 44721 #### [facility] [address] [place] [address], [facility] MCHC (RBC) [Mass/Vol] 33.6 g/dL Normal 32.0-35.0 [facility] Comment on above: Order Comment: No: D o not add to previous draw Performed By: #### 2 5508, 23456, 25104, 74432, 33741, 55131 #### [facility] [address] [place] [address], [facility] MCV (RBC) [Entitic vol] 86.3 fL Normal 82.0-98.0 [facility] Comment on above: Order Comment: No: D o not add to previous draw Performed By: #### 2 5508, 90153, 85452, 48841, 16174, 95208 #### [facility] [address] [place] [address], [facility] Nucleated RBC/100 WBC (Bld) [Ratio] 0 % Normal 0-0 [facility] Comment on above: Order Comment: No: D o not add to previous draw Performed By: #### 2 5508, 60283, 60457, 55329, 22060, 71996 #### [facility] [address] [place] [address], [facility] PLAT CNT 116 10*3/uL Low 150-400 [facility] Comment on above: Order Comment: No: D o not add to previous draw Performed By: #### 2 5508, 46305, 92172, 26173, 15460, 60045 #### [facility] [address] [place] [address], [facility] RBC (Bld) [#/Vol] 4.76 10*6/uL Normal 4.20-5.70 [facility] Comment on above: Order Comment: No: D o not add to previous draw Performed By: #### 2 5508, 49430, 30325, 55463, 14738, 52414 #### [facility] [address] [facility] [place] [address], [facility] WBC (Bld) [#/Vol] 5.16 10*3/uL Normal 4.00-10.60 [facility] Comment on above: Order Comment: No: D o not add to previous draw Performed By: #### 2 5508, 45691, 85781, 38550, 89916, 36144 #### [facility] [address] Cardiovascular Lab Reporton 05-19-2022 Cardiovascular Lab Report [facility] MR #: [id number] Department of Physician: Vic Nunes M.D. Division of Service Date: 05/18/2022 Cardiology Birthdate: 1940 Adult Cardiovascular Room #: 4AB [id number] [place] [address] Cardiovascular Laboratory Report FINAL IMPRESSIONS: 1. 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 2. Two bypass grafts patent; left internal mammary artery graft to the left anterior descending and saphenous vein graft to the obtuse marginal. 3. Robust [id number] collaterals. 4. Patent left subclavian artery. RECOMMENDATIONS: 1. Aggressive cardiovascular risk factor modification. 2. Optimal medical therapy for coronary artery disease and heart failure with reduced ejection fraction (HFrEF). 3. Coronary and graft angiography reveals no suitable targets for revascularization. 4. Further recommendations deferred to the inpatient services. PROCEDURES: Ultrasound-guided access to the right common femoral artery, limited femoral angiography, bilateral selective coronary angiography, angiography of the saphenous vein graft, angiography of the left subclavian, angiography of the left internal mammary artery graft, placement of a 6-Malay MynxGrip closure device. METHODS: After risks, benefits, and alternatives were explained, written informed consent was obtained. The patient was prepped and draped in usual sterile fashion over both groins. Using 1% lidocaine solution, local infiltration anesthesia was achieved. Using a modified Seldinger technique and a micropuncture kit and on the ultrasound guidance access to the right common femoral artery was obtained. A 6-Malay 11 cm sheath was inserted without difficulty. Angiography via the sheath was performed. Bilateral selective coronary angiography was performed using limited amount of contrast and a JL4 and JR4 catheters. The JR4 was used to cannulate the saphenous vein graft and angiography performed. It was used to cannulate the left subclavian. It was exchanged out for an IM catheter. Angiography of the internal mammary artery graft was performed. The catheter was retracted into the left subclavian and angiography of the left subclavian performed. At this juncture, it was elected to conclude the procedure. All catheters removed. A 6-Malay MynxGrip closure device was deployed per protocol achieving optimal hemostasis. Overall, the patient tolerated the procedure well. There were no complications. He was to be transferred to the [facility] in stable condition. FINDINGS: Hemodynamics. AO 108/72. LEFT VENTRICULOGRAPHY: This was not performed. Ejection fraction is severely reduced by noninvasive imaging. CORONARY ARTERIES: Left main coronary artery. This is stump occluded in the mid portion. Left anterior descending coronary artery. This is occluded proximally. Distal filling is seen via a patent left internal mammary artery graft. The mid vessel shows short segment 50% calcific stenosis. There were robust left to right collaterals and left to left collaterals. Left circumflex coronary artery. This is stump occluded. Distal filling is seen via a patent saphenous vein graft to the obtuse marginal. There is collateral flow to the right coronary artery from the circumflex. Right coronary artery. This is stump occluded after a short segment. The previous angiography shows no patent grafts to the distal vessel. Collateral flow is seen from the left anterior descending and left circumflex. GRAFT ANGIOGRAPHY: Left internal mammary artery graft to the left anterior descending. This is widely patent. Saphenous vein graft to the obtuse marginal. This is widely patent. Limited femoral angiography: shows calcific plaque and anatomy suitable for closure device. INDICATION: Worsening heart failure with reduced ejection fraction. Electronically Signed by: Sonja Hall M.D. 05/24/2022 01:00 P Sonja Hall M.D. Date Dict: 05/18/2022/01:19 P/Sonja Hall M.D. Date Trans: 05/19/2022 05:44 A/radha [id number] cc: Francisca Thompson M.D. [address] [facility] [address] Normal [facility] MAGNESIUM BLOODon 05-19-2022 Magnesium [Mass/Vol] 2.0 mg/dL Normal 1.9-2.7 [facility] Comment on above: Order Comment: No: D o not add to previous draw Performed By: #### 1 0070, 83072 #### [facility] [address] [place] [address], [facility] APTTon 05-18-2022 aPTT Coag (Bld) [Time] 80.7 s Critically high 25.0-35.0 [facility] Comment on above: Order Comment: No: D o not add to previous draw Result Comment: Resu lt checked and called. Accurately read back by DREA SINGH RN ON 05/18/2022 AT 14:48 Performed By: #### 2 6896, 61407, 87980, 60839, 55851, 81782 #### [facility] [address] [place] [address], [facility] aPTT Coag (Bld) [Time] 135.2 s Critically high 25.0-35.0 [facility] Comment on above: Order Comment: No: D o not add to previous draw Result Comment: Resu lt checked and called. Accurately read back by Pepe Connolly rn at 0447 Performed By: #### 2 5508, 39050, 10811, 81140, 95530, 91654 #### [facility] [address] [place] [address], [facility] CBC COMPLETE BLOOD COUNTon 0 05-18-2022 Erythrocyte distribution width (RBC) [Ratio] 14.1 % Normal 11.5-15.0 [facility] Comment on above: Order Comment: No: D o not add to previous draw Performed By: #### 2 5508, 40966, 83898, 31921, 09924, 82716 #### [facility] [address] [place] [address], [facility] Hematocrit (Bld) [Volume fraction] 43.0 % Normal 39.0-50.0 [facility] Comment on above: Order Comment: No: D o not add to previous draw Performed By: #### 2 5508, 56523, 77404, 93226, 68166, 48828 #### [facility] [address] [place] [address], [place] Hemoglobin (Bld) [Mass/Vol] 14.3 g/dL Normal 13.0-17.0 [facility] Comment on above: Order Comment: No: D o not add to previous draw Performed By: #### 2 5508, 94612, 39095, 63510, 48887, 01105 #### [facility] [address] [place] [address], [place] MCH (RBC) [Entitic mass] 28.8 pg Normal 27.0-33.0 [facility] Comment on above: Order Comment: No: D o not add to previous draw Performed By: #### 2 5508, 74950, 70955, 35380, 25062, 70675 #### [facility] [address] MCHC (RBC) [Mass/Vol] 33.3 g/dL Normal 32.0-35.0 [facility] Comment on above: Order Comment: No: D o not add to previous draw Performed By: #### 2 5508, 67794, 35029, 76134, 05612, 52664 #### [facility] [address] [place] [address], [facility] MCV (RBC) [Entitic vol] 86.5 fL Normal 82.0-98.0 [facility] Comment on above: Order Comment: No: D o not add to previous draw Performed By: #### 2 5508, 22067, 17542, 29665, 94905, 31904 #### [facility] [address] [place] [address], [facility] Nucleated RBC/100 WBC (Bld) [Ratio] 0 % Normal 0-0 [facility] Comment on above: Order Comment: No: D o not add to previous draw Performed By: #### 2 5508, 29042, 68397, 78658, 32496, 59895 #### [facility] [address] [place] [address], [facility] PLAT CNT 105 10*3/uL Low 150-400 [facility] Comment on above: Order Comment: No: D o not add to previous draw Performed By: #### 2 5508, 80196, 15507, 65009, 20106, 91946 #### [facility] [address] [place] [address], [facility] RBC (Bld) [#/Vol] 4.97 10*6/uL Normal 4.20-5.70 [facility] Comment on above: Order Comment: No: D o not add to previous draw Performed By: #### 2 5508, 41402, 44795, 71114, 55934, 67166 #### [facility] [address] [place] [address], [facility] WBC (Bld) [#/Vol] 5.28 10*3/uL Normal 4.00-10.60 [facility] Comment on above: Order Comment: No: D o not add to previous draw Performed By: #### 2 5508, 77670, 38333, 53697, 71846, 73291 #### [facility] [address] POC GLUCOSE LABon 05-18-2022 Glucose [Mass/Vol] 92 mg/dL Normal 70-100 [facility] Comment on above: Performed By: #### 2 5508, 40681, 17374, 92725, 89413, 18601 #### [facility] [address] [place] [address], [facility] Glucose [Mass/Vol] 90 mg/dL Normal 70-100 [facility] Comment on above: Performed By: #### 2 5508, 35768, 58483, 80921, 30084, 48359 #### [facility] [address] [place] [address], [facility] PROTHROMBIN TIMEon INR Coag (PPP) [Relative time] 1.41 {INR} High 0.91-1.16 [facility] Comment on above: Order Comment: No: D o not add to previous draw Result Comment: ACCC P RECOMMENDED INR FOR WARFARIN THERAPY ------ ------- CONDITION INR PROPHYLAXIS OF VENOUS THROMBOSIS 2-3 (HIGH-RISK SURGERY) TREATMENT OF VENOUS THROMBOSIS 2-3 TREATMENT OF PULMONARY EMBOLISM 2-3 PREVENTION OF SYSTEMIC EMBOLISM: 2-3 ACUTE MYOCARDIAL INFARCTION TISSUE HEART VALVES VALVULAR HEART DISEASE ATRIAL FIBRILLATION RECURRENT SYSTEMIC EMBOLISM MECHANICAL HEART VALVE 2.5-3.5 FROM: ORAL ANTICOAGULANTS. MECHANISM OF ACTION, CLINICAL EFFECTIVENESS, AND OPTIMAL THERAPEUTIC RANGE. CHEST 1995;108:231S-246S. Performed By: #### 2 5508, 53495, 96316, 01166, 20550, 45199 #### [facility] [address] [facility] [address] PT Coag (PPP) [Time] 17.2 s High 12.3-14.8 [facility] Comment on above: Order Comment: No: D o not add to previous draw Result Comment: ALL RESULTS MUST BE INTERPRETED WITH RESPECT TO BLOOD DRAWING ARTIFACT OR DILUTION ERROR OF ANTICOAGULANT AT THE TIME OF SAMPLING. Performed By: #### 2 5508, 06490, 12569, 61166, 37891, 23861 #### [facility] [address] [facility] [address] UFH HEPARIN ASSAYon 05-18-20 22 UNFRACTIONATED HEPARIN >1.00 Critically high 0.30-0.70 [facility] Comment on above: Result Comment: Resu lt checked and called. Accurately read back by DREA SINGH RN ON 05/18/2022 AT 14:48 Rivaroxaban and Apixaban will interfere with the anti Xa assay used to monitor UFH and LMWH. Performed By: #### 2 5508, 45072, 51387, 45806, 46598, 47713 #### [facility] [address] [place] [address], [facility] UNFRACTIONATED HEPARIN >1.00 Critically high 0.30-0.70 [facility] Comment on above: Result Comment: Resu lt checked and called. Accurately read back by Lydien Besong rn at 0447 Rivaroxaban and Apixaban will interfere with the anti Xa assay used to monitor UFH and LMWH. Performed By: #### 2 5508, 84923, 09733, 96776, 41190, 96745 #### [facility] [address] [place] [address], [facility] *BLOOD CULTUREon 05-17-2022 *BLOOD CULTURE Clinical Report: (D) Specimen: BLOOD CULTURE Collected: 05/17/2022 02:15 Status: Final Last Updated: 05/22/2022 07:50 CULT RES (Final) No Growth Day 5 Normal [facility] Comment on above: Performed By: #### 2 5508, 66407, 43662, 77417, 67326, 16947 #### [facility] [address] [place] [address], [facility] APTTon 05-17-2022 aPTT Coag (Bld) [Time] 147.6 s Critically high 25.0-35.0 [facility] Comment on above: Order Comment: No: D o not add to previous draw Result Comment: Resu lt checked and called. Accurately read back by drea singh rn on 05/17/2022 at 18:38 Performed By: #### 2 5508, 72594, 00703, 46929, 74708, 00367 #### [facility] [address] [place] [address], [facility] aPTT Coag (Bld) [Time] 103.1 s Critically high 25.0-35.0 [facility] Comment on above: Order Comment: No: D o not add to previous draw Result Comment: Resu lt checked and called. Accurately read back by DREA SINGH @ 1000 Performed By: #### 2 5508, 33884, 86273, 63999, 55814, 71097 #### [facility] [address] [place] [address], [place] aPTT Coag (Bld) [Time] 47.9 s High 25.0-35.0 [facility] Comment on above: Order Comment: No: D o not add to previous draw Result Comment: ALL RESULTS MUST BE INTERPRETED WITH RESPECT TO BLOOD DRAWING ARTIFACT OR DILUTION ERROR OF ANTICOAGULANT AT THE TIME OF SAMPLING. THE APTT SHOULD NOT BE USED TO MONITOR UNFRACTIONATED HEPARIN THERAPY, THIS LABORATORY NO LONGER HAS AN ESTABLISHED THERAPEUTIC RANGE BASED ON THE APTT. IT IS RECOMMENDED THAT THE UFH - HEPARIN ASSAY (ANTI-XA ACTIVITY) BE USED FOR THIS PURPOSE. Performed By: #### 2 5508, 35674, 87645, 82914, 95072, 95424 #### [facility] [address] BNP (B-TYPE NATRIURETIC PEPT TWIN)on 05-17-2022 Natriuretic peptide B (Bld) [Mass/Vol] 584 pg/mL High 0-100 [facility] Comment on above: Order Comment: No: D o not add to previous draw Result Comment: Give n the appropriate clinical setting a BNP result of >100 pg/mL indicates congestive heart failure. Performed By: #### 2 5508, 22320, 53225, 83543, 74943, 78230 #### [facility] [address] [place] [address], [facility] CBC W/DIFFon 05-17-2022 ABS IMM GRANS 0.0 10*3/uL Normal 0.0-0.2 [facility] Comment on above: Order Comment: No: D o not add to previous draw Performed By: #### 2 5508, 61642, 95309, 09904, 11078, 63461 #### [facility] [address] [place] [address], [facility] ABS NEUTROPHILS 3.6 10*3/uL Normal 1.6-7.6 [facility] Comment on above: Order Comment: No: D o not add to previous draw Performed By: #### 2 5508, 48204, 23773, 78992, 81060, 78364 #### [facility] [address] [place] [address], [facility] Basophils (Bld) [#/Vol] 0.0 10*3/uL Normal 0.0-0.2 [facility] Comment on above: Order Comment: No: D o not add to previous draw Performed By: #### 2 5508, 93095, 26465, 77324, 40660, 87102 #### [facility] [address] [place] [address], [place] Basophils/100 WBC (Bld) 0.6 % Normal 0.0-1.0 [facility] Comment on above: Order Comment: No: D o not add to previous draw Performed By: #### 2 5508, 05537, 09766, 72168, 93663, 44740 #### [facility] [address] [place] [address], [facility] Eosinophils (Bld) [#/Vol] 0.0 10*3/uL Normal 0.0-0.5 [facility] Comment on above: Order Comment: No: D o not add to previous draw Performed By: #### 2 5508, 82817, 52699, 86832, 34462, 67227 #### [facility] [address] [place] [address], [place] Eosinophils/100 WBC (Bld) 0.2 % Normal 0.0-6.0 [facility] Comment on above: Order Comment: No: D o not add to previous draw Performed By: #### 2 5508, 42154, 42793, 33046, 85676, 38554 #### [facility] [address] [place] [address], [place] Erythrocyte distribution width (RBC) [Ratio] 13.9 % Normal 11.5-15.0 [facility] Comment on above: Order Comment: No: D o not add to previous draw Performed By: #### 2 5508, 60678, 89629, 01283, 30991, 89576 #### [facility] [address] [place] [address], [place] Hematocrit (Bld) [Volume fraction] 40.6 % Normal 39.0-50.0 [facility] Comment on above: Order Comment: No: D o not add to previous draw Performed By: #### 2 5508, 37870, 30021, 20285, 53771, 52232 #### [facility] [address] [place] [address], [facility] Hemoglobin (Bld) [Mass/Vol] 13.7 g/dL Normal 13.0-17.0 [facility] Comment on above: Order Comment: No: D o not add to previous draw Performed By: #### 2 5508, 17543, 73487, 64471, 09057, 47091 #### [facility] [address] IMM PLATELET FRAC 6.9 % High 0.8-6.3 [facility] Comment on above: Order Comment: No: D o not add to previous draw Performed By: #### 2 5508, 71059, 59529, 28785, 80877, 94521 #### [facility] [address] [place] [address], [facility] IMMATURE GRANS 0.8 % Normal 0.0-1.0 [facility] Comment on above: Order Comment: No: D o not add to previous draw Performed By: #### 2 5508, 18618, 21343, 54373, 37750, 77085 #### [facility] [address] [place] [address], [facility] Lymphocytes (Bld) [#/Vol] 0.8 10*3/uL Low 1.2-4.0 [facility] Comment on above: Order Comment: No: D o not add to previous draw Performed By: #### 2 5508, 25534, 23979, 09324, 25051, 59508 #### [facility] [address] [place] [address], [facility] Lymphocytes/100 WBC (Bld) 15.5 % Low 20.0-45.0 [facility] Comment on above: Order Comment: No: D o not add to previous draw Performed By: #### 2 5508, 72349, 07632, 93625, 57617, 26586 #### [facility] [address] [place] [address], [facility] MCH (RBC) [Entitic mass] 29.3 pg Normal 27.0-33.0 [facility] Comment on above: Order Comment: No: D o not add to previous draw Performed By: #### 2 5508, 77401, 79290, 73677, 85611, 91086 #### [facility] [address] [place] [address], [facility] MCHC (RBC) [Mass/Vol] 33.7 g/dL Normal 32.0-35.0 [facility] Comment on above: Order Comment: No: D o not add to previous draw Performed By: #### 2 5508, 42549, 07810, 36066, 29702, 80185 #### [facility] [address] [place] [address], [facility] MCV (RBC) [Entitic vol] 86.9 fL Normal 82.0-98.0 [facility] Comment on above: Order Comment: No: D o not add to previous draw Performed By: #### 2 5508, 80600, 50047, 12970, 40717, 06219 #### [facility] [address] [place] [address], [facility] Monocytes (Bld) [#/Vol] 0.5 10*3/uL Normal 0.1-1.0 [facility] Comment on above: Order Comment: No: D o not add to previous draw Performed By: #### 2 5508, 05130, 38685, 49533, 96867, 44012 #### [facility] [address] [place] [id number], [facility] MONOS 9.7 % Normal 5.0-12.0 [facility] Comment on above: Order Comment: No: D o not add to previous draw Performed By: #### 2 5508, 74443, 88536, 36526, 18525, 98546 #### [facility] [address] [place] [address], [place] Neutrophils/100 WBC (Bld) 73.2 % High 40.0-72.0 [facility] Comment on above: Order Comment: No: D o not add to previous draw Performed By: #### 2 5508, 27453, 34168, 86170, 01850, 62541 #### [facility] [address] [place] [address], [place] Nucleated RBC/100 WBC (Bld) [Ratio] 0 % Normal 0-0 [facility] Comment on above: Order Comment: No: D o not add to previous draw Performed By: #### 2 5508, 59084, 58877, 13189, 85533, 21549 #### [facility] [address] [place] [address], [place] PLAT CNT 81 10*3/uL Low 150-400 [facility] Comment on above: Order Comment: No: D o not add to previous draw Performed By: #### 2 5508, 70058, 52242, 04907, 90277, 70468 #### [facility] [address] [place] [address], [place] RBC (Bld) [#/Vol] 4.67 10*6/uL Normal 4.20-5.70 [facility] Comment on above: Order Comment: No: D o not add to previous draw Performed By: #### 2 5508, 58469, 00381, 51044, 62048, 27200 #### [facility] [address] [place] [address], [place] WBC (Bld) [#/Vol] 4.96 10*3/uL Normal 4.00-10.60 [facility] Comment on above: Order Comment: No: D o not add to previous draw Performed By: #### 2 5508, 46829, 61854, 84076, 88970, 44525 #### [facility] [address] [place] [address], [facility] COMP METABOLIC PANELon 05-17 Albumin [Mass/Vol] 3.0 g/dL Low 3.5-5.7 [facility] Comment on above: Order Comment: No: D o not add to previous draw Performed By: #### 2 5508, 79353, 91745, 92874, 24267, 98786 #### [facility] [address] [place] [address], [facility] ALKALINE PHOSPH 48 IU/L Normal 34-104 [facility] Comment on above: Order Comment: No: D o not add to previous draw Performed By: #### 2 5508, 36664, 97596, 84779, 86419, 95020 #### [facility] [address] [place] [address], [place] ALT [Catalytic activity/Vol] 11 U/L Normal 7-52 [facility] Comment on above: Order Comment: No: D o not add to previous draw Performed By: #### 2 5508, 62446, 38996, 75728, 06199, 11842 #### [facility] [address] [place] [address], [place] AST [Catalytic activity/Vol] 19 U/L Normal 13-39 [facility] Comment on above: Order Comment: No: D o not add to previous draw Performed By: #### 2 5508, 94265, 87701, 46477, 89708, 10962 #### [facility] [address] [place] [address], [place] Bilirubin [Mass/Vol] 0.7 mg/dL Normal 0.3-1.0 [facility] Comment on above: Order Comment: No: D o not add to previous draw Performed By: #### 2 5508, 87856, 57956, 40230, 15522, 58830 #### [facility] [address] [place] [address], [place] Calcium [Mass/Vol] 8.5 mg/dL Low 8.6-10.3 [facility] Comment on above: Order Comment: No: D o not add to previous draw Performed By: #### 2 5508, 61205, 81645, 42602, 38613, 23070 #### [facility] [address] [place] [address], [place] Chloride [Moles/Vol] 104 mmol/L Normal 98-107 [facility] Comment on above: Order Comment: No: D o not add to previous draw Performed By: #### 2 5508, 11643, 14820, 22252, 02914, 16689 #### [facility] [address] [place] [address], [place] CO2 [Moles/Vol] 19 mmol/L Low 21-31 [facility] Comment on above: Order Comment: No: D o not add to previous draw Performed By: #### 2 5508, 91157, 73323, 94561, 81747, 25461 #### [facility] [address] [place] [address], [place] Creatinine [Mass/Vol] 1.71 mg/dL High 0.70-1.30 [facility] Comment on above: Order Comment: No: D o not add to previous draw Performed By: #### 2 5508, 40619, 69809, 67065, 32451, 59236 #### [facility] [address] [place] [address], [place] EGFR 40 ml/min/1.73sq m Abnormal >60 [facility] Comment on above: Order Comment: No: D o not add to previous draw Result Comment: [facility]'s estimated glomerular filtration rate (eGFR) will no longer include consideration of race in its calculation. The [employer]'s eGFR Task Force developed new recommendations for the estimation of the glomerular filtration rate in the [place] They recommend immediate implementation of the new equation refit without the race variable in all laboratories because the calculation does not include race. In addition to not including race in the calculation and reporting, it included diversity in its development, and has acceptable performance characteristics and potential consequences that do not disproportionately affect any one group of individuals. Performed By: #### 2 5508, 23045, 42699, 49280, 72757, 14237 #### [facility] [address] [place] [address], [place] Glucose [Mass/Vol] 96 mg/dL Normal 70-100 [facility] Comment on above: Order Comment: No: D o not add to previous draw Performed By: #### 2 5508, 61681, 46016, 75052, 61693, 27801 #### [facility] [address] [place] [address], [place] Potassium [Moles/Vol] 3.8 mmol/L Normal 3.5-5.1 [facility] Comment on above: Order Comment: No: D o not add to previous draw Performed By: #### 2 5508, 77445, 22365, 17829, 69072, 88970 #### [facility] [address] [place] [address], [place] Protein [Mass/Vol] 5.7 g/dL Low 6.0-8.3 [facility] Comment on above: Order Comment: No: D o not add to previous draw Performed By: #### 2 5508, 33632, 10647, 95719, 37622, 86157 #### [facility] [address] [place] [address], [place] Sodium [Moles/Vol] 133 mmol/L Low 136-145 [facility] Comment on above: Order Comment: No: D o not add to previous draw Performed By: #### 2 5508, 49755, 54616, 50543, 93348, 58965 #### [facility] [address] [place] [address], [facility] Urea nitrogen [Mass/Vol] 57 mg/dL High 7-25 [facility] Comment on above: Order Comment: No: D o not add to previous draw Performed By: #### 2 5508, 20833, 51903, 81388, 07464, 94349 #### [facility] [address] [place] [address], [facility] CPKon 05-17-2022 CK [Catalytic activity/Vol] 44 U/L Normal 30-223 [facility] Comment on above: Order Comment: No: D o not add to previous draw Performed By: #### 2 5508, 73042, 38887, 40935, 68524, 18046 #### [facility] [address] FREE T4on 05-17-2022 Free T4 [Mass/Vol] 0.78 ng/dL Normal 0.71-1.85 [facility] Comment on above: Performed By: #### 2 5508, 28297, 05727, 42839, 02085, 83660 #### [facility] [address] [place] [address], [facility] HEMOGLOBIN A1Con 05-17-2022 Glucose [Moles/Vol] 117 mmol/L Normal [facility] Comment on above: Order Comment: No: D o not add to previous draw Performed By: #### 2 5508, 89909, 95373, 32097, 18630, 74283 #### [facility] [address] [place] [address], [facility] HbA1c (Bld) [Mass fraction] 5.7 % Normal 4.0-6.0 [facility] Comment on above: Order Comment: No: D o not add to previous draw Performed By: #### 2 5508, 60449, 11684, 09688, 28728, 41686 #### [facility] [address] [place] [address], [facility] LACTATE BLOODon 05-17-2022 Lactate [Moles/Vol] 1.0 mmol/L Normal .5-2.2 [facility] Comment on above: Order Comment: No: D o not add to previous draw Performed By: #### 2 5508, 57662, 97917, 48077, 02383, 04353 #### [facility] [address] [place] [address], [facility] LIPID PROFILEon 05-17-2022 Cholesterol [Mass/Vol] 141 mg/dL Normal 120-200 [facility] Comment on above: Order Comment: No: D o not add to previous draw Result Comment: CHOL ESTEROL REFERENCE RANGE: 20 YEARS AND OLDER CARDIOVASCULAR RISK Less than 200 mg/dl Low Risk 200 to 239 mg/dl Borderline Risk 240 mg/dl and greater High Risk Performed By: #### 2 5508, 84171, 86518, 33592, 40647, 73509 #### [facility] [address] [place] [address], [facility] Cholesterol in HDL [Mass/Vol] 22 mg/dL Low 23-92 [facility] Comment on above: Order Comment: No: D o not add to previous draw Result Comment: Slig ht variation in normal range could be due to gender and/or age. HDL CHOLESTEROL REFERENCE RANGE: 20 years and older Cardiovascular Risk > or =60 mg/dL Desirable 40 TO 59 mg/dL Low Risk <40 mg/dL High Risk Performed By: #### 2 5508, 88720, 01688, 65695, 50489, 83202 #### [facility] [address] [place] [address], [facility] Cholesterol in LDL [Mass/Vol] 95 mg/dL Normal 0-130 [facility] Comment on above: Order Comment: No: D o not add to previous draw Result Comment: LDL IS A CALCULATION LDL IS ONLY VALID IF THE TRIG IS LESS THAN 400. Performed By: #### 2 5508, 42466, 65330, 28433, 81074, 54522 #### [facility] [address] [place] [address], [facility] Cholesterol.total/C holesterol in HDL [Mass ratio] 6.4 {ratio} High .0-4.5 [facility] Comment on above: Order Comment: No: D o not add to previous draw Performed By: #### 2 5508, 89730, 49121, 12293, 20261, 44288 #### [facility] [address] [place] [address], [facility] NON-HDL CHOLESTEROL 119 mg/dL Normal [facility] Comment on above: Order Comment: No: D o not add to previous draw Performed By: #### 2 5508, 47367, 10077, 73104, 38025, 50161 #### [facility] [address] [place] [address], [facility] Triglyceride [Mass/Vol] 122 mg/dL Normal 40-149 [facility] Comment on above: Order Comment: No: D o not add to previous draw Result Comment: TRIG LYCERIDE REFERENCE RANGE: 20 YEARS AND OLDER CARDIOVASCULAR RISK LESS THAN 150 mg/dl LOW RISK 150 TO 199 mg/dl BORDERLINE RISK 200 mg/dl AND GREATER HIGH RISK Performed By: #### 2 5508, 23769, 56636, 48343, 38141, 73657 #### [facility] [address] [place] [address], [facility] VLDL CHOL 24 mg/dL Normal 0-40 [facility] Comment on above: Order Comment: No: D o not add to previous draw Performed By: #### 2 5508, 74028, 91304, 82026, 73401, 80334 #### [facility] [address] [place] [id number], [facility] POC GLUCOSE LABon 05-17-2022 Glucose [Mass/Vol] 91 mg/dL Normal 70-100 [facility] Comment on above: Performed By: #### 2 5508, 13846, 21765, 64447, 62760, 25388 #### [address] PORTABLE CHEST 1 VIEWon PORTABLE CHEST 1 VIEW [facility] Department of Radiology [address] [place] [id number] Patient Name: JOSÉ MIGUEL ROTH : 1940 Sex: M Age: Race: White Pt. Location: [id number] Patient Status: I Ordered Date: 05/17/2022 2:00:00 AM Completed Date: 05/17/2022 03:05 AM Requesting Provider: AXEL MURPHY Attending Provider: NORMA ARORA Report Copy To: Signs & Symptoms: Chest Pain History: Comments: Cardiomegaly Exam: PORTABLE CHEST 1 VIEW PORTABLE CHEST 1 VIEW 05/17/2022 3:05 AM CLINICAL INDICATIONS: Chest Pain TECHNOLOGIST COMMENTS: Per ordering physician patient is having chest pain evaluate for cardiomegaly. QUESTION FOR THE RADIOLOGIST: Cardiomegaly PROTOCOL: AP(PA) view was obtained. COMPARISON: None FINDINGS: The trachea is midline. The cardiomediastinal silhouette is mildly enlarged. There is pulmonary vascular congestion. Possible trace left pleural effusion. No pneumothorax. Dual-chamber cardiac device. IMPRESSION: Mild cardiomegaly and pulmonary vascular congestion. Suspect trace left pleural effusion. Approved by:Lynnette Soriano05/17/2022 3:19 AM. IObdulio,have reviewed the image(s) and agree with the findings in this report. Electronically signed: Obdulio Coughlin. Transcribed by: [email or web address], User Resident: LYNNETTE NORTH Electronically Signed by: OBDULIO COUGHLIN @ 05/17/2022 03:59 AM I personally read this/these film(s) with this resident Normal [facility] Comment on above: Order Comment: No: D o not add to previous draw PROTHROMBIN TIMEon 2 INR Coag (PPP) [Relative time] 2.07 {INR} High 0.91-1.16 [facility] Comment on above: Order Comment: No: D o not add to previous draw Result Comment: ACCC P RECOMMENDED INR FOR WARFARIN THERAPY ------ ------- CONDITION INR PROPHYLAXIS OF VENOUS THROMBOSIS 2-3 (HIGH-RISK SURGERY) TREATMENT OF VENOUS THROMBOSIS 2-3 TREATMENT OF PULMONARY EMBOLISM 2-3 PREVENTION OF SYSTEMIC EMBOLISM: 2-3 ACUTE MYOCARDIAL INFARCTION TISSUE HEART VALVES VALVULAR HEART DISEASE ATRIAL FIBRILLATION RECURRENT SYSTEMIC EMBOLISM MECHANICAL HEART VALVE 2.5-3.5 FROM: ORAL ANTICOAGULANTS. MECHANISM OF ACTION, CLINICAL EFFECTIVENESS, AND OPTIMAL THERAPEUTIC RANGE. CHEST 1995;108:231S-246S. Performed By: #### 2 5508, 02490, 52929, 86721, 11778, 97773 #### [facility] [address] PT Coag (PPP) [Time] 22.9 s High 12.3-14.8 [facility] Comment on above: Order Comment: No: D o not add to previous draw Result Comment: ALL RESULTS MUST BE INTERPRETED WITH RESPECT TO BLOOD DRAWING ARTIFACT OR DILUTION ERROR OF ANTICOAGULANT AT THE TIME OF SAMPLING. Performed By: #### 2 5508, 95759, 54678, 93615, 74738, 90422 #### [facility] [address] [place] [address], [facility] TROPONIN-Ion 05-17-2022 Troponin I.cardiac [Mass/Vol] 0.25 ng/mL Critically high 0.00-0.04 [facility] Comment on above: Order Comment: No: D o not add to previous draw Result Comment: M-WA EVIOUS CRITICAL RESULT REFERENCE RANGES: 0.00 - 0.04 ng/ml NORMAL 0.05 - 0.50 ng/ml INDETERMINATE > 0.50 ng/ml CONSISTENT WITH AN M.I. Performed By: #### 2 5508, 57438, 41900, 49962, 56376, 76939 #### [facility] [address] Troponin I.cardiac [Mass/Vol] 0.31 ng/mL Critically high 0.00-0.04 [facility] Comment on above: Order Comment: No: D o not add to previous draw Result Comment: M-TR OPONIN INITIAL CRITICAL HIGH; RESPUN AND RETESTED M-CRITICAL RESULT(S) REVIEWED, CALLED TO AND READ BACK BY ARELIS CLEMENTS AT 0345 REFERENCE RANGES: 0.00 - 0.04 ng/ml NORMAL 0.05 - 0.50 ng/ml INDETERMINATE > 0.50 ng/ml CONSISTENT WITH AN M.I. Performed By: #### 2 5508, 78611, 08217, 43602, 09052, 41342 #### [facility] [address] [place] [address], [facility] TSH3 WITH REFLEX FT4on 05-17 TSH 3RD GENERATION 0.19 uIU/mL Low 0.34-5.60 [facility] Comment on above: Order Comment: No: D o not add to previous draw Performed By: #### 2 5508, 88321, 74585, 70169, 70757, 97950 #### [facility] [address] [place] [address], [facility] UFH HEPARIN ASSAYon 05-17-20 22 UNFRACTIONATED HEPARIN >1.00 Critically high 0.30-0.70 [facility] Comment on above: Result Comment: Resu lt checked and called. Accurately read back by drea singh rn on 05/17/2022 at 18:38 Rivaroxaban and Apixaban will interfere with the anti Xa assay used to monitor UFH and LMWH. Performed By: #### 2 5508, 89486, 31682, 24170, 21309, 39932 #### [facility] [address] [place] [address], [facility] UNFRACTIONATED HEPARIN >1.00 Critically high 0.30-0.70 [facility] Comment on above: Result Comment: Resu lt checked and called. Accurately read back by DREA SINGH @ 1000 Rivaroxaban and Apixaban will interfere with the anti Xa assay used to monitor UFH and LMWH. Performed By: #### 2 5508, 41002, 05278, 48164, 06515, 67126 #### [facility] [address] [place] [address], [facility] UNFRACTIONATED HEPARIN >1.00 Critically high 0.30-0.70 [facility] Comment on above: Result Comment: Resu lt checked and called. Accurately read back by Arelis Clements RN at 0251 PT on Elquis UFH = 2.79 for pharmacy use Rivaroxaban and Apixaban will interfere with the anti Xa assay used to monitor UFH and LMWH. Performed By: #### 2 5508, 60984, 79195, 44503, 26723, 49621 #### [facility] [address] [place] [address], [facility] URINALYSIS REFLEXon 05-17-20 22 Appearance (U) CLEAR Normal CLEAR [facility] Comment on above: Order Comment: No: D o not add to previous draw Performed By: #### 2 5508, 52750, 90572, 53215, 45071, 40994 #### [facility] [address] [place] [address], [place] Bilirubin Ql (U) Negative Normal NEGATIVE [facility] Comment on above: Order Comment: No: D o not add to previous draw Performed By: #### 2 5508, 72770, 68336, 37569, 91664, 18647 #### [facility] [address] [place] [address], [place] Color (U) YELLOW Normal YELLOW [facility] Comment on above: Order Comment: No: D o not add to previous draw Performed By: #### 2 5508, 38441, 90828, 48793, 90304, 66221 #### [facility] [address] [place] [address], [place] EPIS NONE SEEN Normal FEW,OCC,NON E SEEN [facility] Comment on above: Order Comment: No: D o not add to previous draw Performed By: #### 2 5508, 95911, 82735, 94017, 11489, 96058 #### [facility] [address] [place] [address], [place] Glucose Ql (U) Negative Normal NEGATIVE [facility] Comment on above: Order Comment: No: D o not add to previous draw Performed By: #### 2 5508, 92569, 88368, 75407, 58175, 22322 #### [facility] [address] [place] [address], [place] Hemoglobin Ql (U) TRACE Abnormal NEGATIVE [facility] Comment on above: Order Comment: No: D o not add to previous draw Performed By: #### 2 5508, 15683, 02388, 05674, 03472, 93058 #### [facility] [address] [place] [address], [place] KETONE Negative Normal NEGATIVE [facility] Comment on above: Order Comment: No: D o not add to previous draw Performed By: #### 2 5508, 21128, 85692, 20092, 19877, 02620 #### [facility] [address] [place] [address], [facility] LEUK MARQUITA Negative Normal NEGATIVE [facility] Comment on above: Order Comment: No: D o not add to previous draw Performed By: #### 2 5508, 33191, 80139, 86092, 79603, 94276 #### [facility] [address] [place] [address], [facility] MUCUS THREADS OCC Abnormal NONE SEEN [facility] Comment on above: Order Comment: No: D o not add to previous draw Performed By: #### 2 5508, 28999, 60108, 31340, 08124, 08032 #### [facility] [address] [place] [address], [place] Nitrite Ql (U) Negative Normal NEGATIVE [facility] Comment on above: Order Comment: No: D o not add to previous draw Performed By: #### 2 5508, 95757, 89739, 67165, 37487, 25358 #### [facility] [address] [place] [id number], [facility] SERVICE [facility]IT pH (U) 5.5 [pH] Normal 5.0-8.0 [facility] Comment on above: Order Comment: No: D o not add to previous draw Performed By: #### 2 5508, 69576, 89087, 94657, 75115, 50139 #### [facility] [address] [place] [address], [facility] Protein Ql (U) 30 Abnormal NEGATIVE [facility] Comment on above: Order Comment: No: D o not add to previous draw Performed By: #### 2 5508, 59605, 63280, 14595, 06541, 04026 #### [facility] [address] [place] [address], [facility] RBC 3-5 Abnormal NONE SEEN [facility] Comment on above: Order Comment: No: D o not add to previous draw Performed By: #### 2 5508, 08465, 56665, 71207, 83848, 36020 #### [facility] [address] [facility]. [address] SPEC GRAV 1.015 Normal 1.015-1.020 [facility] Comment on above: Order Comment: No: D o not add to previous draw Performed By: #### 2 5508, 55204, 03187, 20440, 92874, 93813 #### [facility] [address] WBC UA 0-2 Abnormal NONE SEEN [facility] Comment on above: Order Comment: No: D o not add to previous draw Performed By: #### 2 5508, 56264, 77083, 03843, 07215, 88703 #### [facility] [address] [facility]. [address] BNPon 05-16-2022 Natriuretic peptide B (Bld) [Mass/Vol] 88110.0 pg/mL Critically high <=1,800.0 [facility] Comment on above: Performed By: #### B MP, BNP #### [facility] [address] [place] [address] Dr. Silva Burnett CBC AUTO DIFFon 05-16-2022 BASO # 0.0 103/ul Normal 0.0-0.1 [facility] Comment on above: Performed By: #### V ITAD #### [facility] [address] [address] [address] Silva Burnett Basophils/100 WBC (Bld) 0.6 % Normal 0.2-2.0 [facility] Comment on above: Performed By: #### V ITAD #### [facility] [address] [place] [address] Dr. Silva Burnett EO # 0.0 103/ul Normal 0.0-0.7 [facility] Comment on above: Performed By: #### V ITAD #### [facility] [address] [address] [address] Silva Burnett Eosinophils/100 WBC (Bld) 0.1 % Critically low 0.9-7.0 Comment on above: Performed By: #### V ITAD #### [facility] [address] [address] [address] Silva Burntet Erythrocyte distribution width (RBC) [Ratio] 13.7 % Normal 11.0-15.0 Comment on above: Performed By: #### V ITAD #### [facility] [address] [place] [address] Dr. Silva Burnett Hematocrit (Bld) [Volume fraction] 45.5 % Normal 42.0-54.0 Comment on above: Performed By: #### V ITAD #### [facility] [address] [place] [address] Dr. Silva Burnett Hemoglobin (Bld) [Mass/Vol] 14.9 g/dL Normal 14.0-18.0 Comment on above: Performed By: #### V ITAD #### [facility] [address] [place] [address] Dr. Silva Burnett IG # 0.04 10e3/ul Critically high 0.00-0.03 [facility] Comment on above: Performed By: #### V ITAD #### [facility] [address] [place] [address] Dr. Silva Burnett IG % 0.6 % Critically high 0.0-0.5 [facility] Comment on above: Performed By: #### V ITAD #### [facility] [address] [place] [address] Dr. Silva Burnett LYMPH # 0.8 103/ul Critically low 1.2-3.8 [facility] Comment on above: Performed By: #### V ITAD #### [facility] [address] [place] [address] Dr. Silva Burnett Lymphocytes/100 WBC (Bld) 11.9 % Critically low 20.5-60.0 Comment on above: Performed By: #### V ITAD #### [facility] [address] [place] [address] Dr. Silva Burnett MANUAL DIFF REQ NO Normal [facility] Comment on above: Performed By: #### V ITAD #### [facility] [address] [place] [address] Dr. Silva Burnett MCH (RBC) [Entitic mass] 29.0 pg Normal 25.9-34.0 Comment on above: Performed By: #### V ITAD #### [facility] [address] [place] [address] Dr. Silva Burnett MCHC (RBC) [Mass/Vol] 32.7 g/dL Normal 29.9-35.2 Comment on above: Performed By: #### V ITAD #### [facility] [address] [place] [address] Dr. Silva Burnett MCV (RBC) [Entitic vol] 88.7 fL Normal 80.0-94.0 Comment on above: Performed By: #### V ITAD #### [facility] [address] [place] [address] Dr. Silva Burnett MONO # 0.4 103/ul Normal 0.3-0.8 Comment on above: Performed By: #### V ITAD #### [facility] [address] [place] [address] Dr. Silva Burnett Monocytes/100 WBC (Bld) 6.5 % Normal 1.7-12.0 Comment on above: Performed By: #### V ITAD #### [facility] [address] [place] [address] Dr. Silva Burnett NEUT # 5.4 103/ul Normal 1.4-6.5 [facility] Comment on above: Performed By: #### V ITAD #### [facility] [address] [place] [address] Dr. Silva Burnett Neutrophils/100 WBC (Bld) 80.3 % Critically high 43.0-75.0 Comment on above: Performed By: #### V ITAD #### [facility] [address] [place], [place] [address] Dr. Silva Burnett Platelet mean volume (Bld) [Entitic vol] 11.5 fL Normal 9.5-13.5 Comment on above: Performed By: #### V ITAD #### [facility] [address] [place], [place] [address] Dr. Silva Burnett PLT 111 103/ul Critically low 150-450 [facility] Comment on above: Performed By: #### V ITAD #### [facility] [address] [place], [place] [address] Dr. Silva Burnett RBC 5.13 106/ul Normal 4.70-6.10 Comment on above: Performed By: #### V ITAD #### [facility] [address] [address] [address] Silva Burnett WBC 6.7 103/ul Normal 4.0-11.0 Comment on above: Performed By: #### V ITAD #### [facility] [address] [place], [place] [address] HEAD WO CONon 05-16-2022 CT HEAD WO CON EXAM: CT HEAD WO CON COMPARISON: None available. CLINICAL INFORMATION: Headache, confusion, weakness. TECHNIQUE: Axial noncontrast images were obtained through the brain and reconstructed using brain and bone algorithms with sagittal and coronal reconstructions. Dose reduction techniques were achieved by using automated exposure control and/or adjustment of mA and/or kV according to patient size and/or use of iterative reconstruction technique. FINDINGS: BRAIN: No intracranial hemorrhage. No extra-axial collection. No mass or mass effect. No midline shift. Chronic appearing right parietal-occipital infarct. There is also scattered chronic microvascular ischemic change of the supratentorial periventricular white matter. CSF: Ventricles and sulci appropriate for age. Basal cisterns are patent. ORBITS: Visualized orbital structures are unremarkable. SINUSES AND MASTOID AIR CELLS: Paranasal sinuses are clear. Mastoid air cells are clear. BONES: No acute osseous abnormality. SOFT TISSUES: Unremarkable. IMPRESSION: 1. No CT evidence of acute intracranial abnormality. No acute intracranial hemorrhage. 2. Chronic appearing right parietal-occipital infarct and apparent scattered chronic microvascular ischemic change. Electronically authenticated by: LINDA JUNIOR Date: 2022-05-16 17:37 Normal [facility] CULTURE URINEon 05-16-2022 CULTURE URINE Culture Observations : NO GROWTH. Normal [facility] Comment on above: Performed By: #### V ITAD #### [facility] [address] [place] [address] Dr. Silva Burnett Covid-19 PCR ([facility])on 04-18 SARS-CoV-2 (COVID-19) RNA BRANT+probe Ql (Unsp spec) Not detected Normal NOT DETECTED [facility] Comment on above: Result Comment: When diagnostic testing is negative, the possibility of a false negative should be considered in the context of a patient's recent exposures and the presence of clinical signs and symptoms consistent with SARS-CoV-2. This test is not yet approved or cleared by the [place] FDA. When there are no FDA-approved or cleared tests available, and other criteria are met, FDA can make tests available under an emergency access mechanism called an Emergency Use Authorization (EUA). The EUA for this test is supported by the [place] of Health and Human Service's declaration that circumstances exist to justify the emergency use of in vitro diagnostics for the detection and/or diagnosis of the virus that causes COVID-19. This EUA will remain in effect for the duration of the COVID-19 declaration justifying emergency of IVDs, unless it is terminated or revoked by the FDA (after which the test may no longer be used). Performed By: #### C VDTBH #### [facility] [address] [place] [address] Dr. Silva Burnett ER URINE PROFILEon 2 Bilirubin Ql (U) Negative Normal NEGATIVE [facility] Comment on above: Performed By: #### B MP, BNP #### [facility] [address] [place] [address] Dr. Silva Burnett Clarity (U) CLEAR Normal CLEAR [facility] Comment on above: Performed By: #### B MP, BNP #### [facility] [address] [place] [address] Dr. Silva Burnett Color (U) DK. YELLOW Normal YELLOW Comment on above: Performed By: #### B MP, BNP #### [facility] [address] [place] [address] Dr. Silva SANDRA A micrscopic examina tion will be performed if indicated. Normal Comment on above: Performed By: #### B MP, BNP #### [facility] [address] [place] [address] Dr. Silva Burnett Glucose Ql (U) Negative Normal NEGATIVE [facility] Comment on above: Performed By: #### B MP, BNP #### [facility] [address] [place] [address] Dr. Silva Burnett Hemoglobin Ql (U) TRACE-INTACT Abnormal NEGATIVE [facility] Comment on above: Performed By: #### B MP, BNP #### [facility] [address] [place] [address] Dr. Silva Burnett Ketones Ql (U) TRACE Abnormal NEGATIVE [facility] Comment on above: Performed By: #### B MP, BNP #### [facility] [address] [place] [address] Dr. Silva Burnett LEUKOCYTES Negative Normal NEGATIVE Comment on above: Performed By: #### B MP, BNP #### [facility] [address] [place] [address] Dr. Silva Burnett Nitrite Ql (U) Negative Normal NEGATIVE [facility] Comment on above: Performed By: #### B MP, BNP #### [facility] [address] [place] [address] Dr. Silva Burnett pH (U) 5.5 [pH] Normal 5-9 Comment on above: Performed By: #### B MP, BNP #### [facility] [address] [place] [address] Dr. Silva Burnett Protein (U) [Mass/Vol] 30 mg/dL Abnormal NEGATIVE/ TRACE Comment on above: Performed By: #### B MP, BNP #### [facility] [address] [place] [address] Dr. Silva Burnett SPEC GRAVITY 1.025 Normal 1.005-<=1.0 25 Comment on above: Performed By: #### B MP, BNP #### [facility] [address] [place] [address] Dr. Silva Burnett UR MICRO IND INDICATED Normal Comment on above: Performed By: #### B MP, BNP #### [facility] [address] [place] [address] Dr. Silva Burnett Urobilinogen Qn (U) 0.2 {Zaina'U}/dL Normal 0.2 - 1. 0 Comment on above: Performed By: #### B MP, BNP #### [facility] [address] [place] [address] Dr. Silva Burnett PROF 14(COMP METB)on 022 Albumin [Mass/Vol] 2.8 g/dL Critically low 3.4-5.0 [facility] Comment on above: Performed By: #### B MP, BNP #### [facility] [address] [place] [address] Dr. Silva Burnett Albumin/Globulin [Mass ratio] 0.7 {ratio} Normal Comment on above: Performed By: #### B MP, BNP #### [facility] [address] [place] [address] Dr. Silva Burnett ALP [Catalytic activity/Vol] 69 U/L Normal 46-116 Comment on above: Performed By: #### B MP, BNP #### [facility] [address] [place] [address] Dr. Silva Burnett ALT [Catalytic activity/Vol] 16 U/L Normal 16-63 Comment on above: Performed By: #### B MP, BNP #### [facility] [address] [place] [address] Dr. Silva Burnett Anion gap [Moles/Vol] 15.2 mmol/L Normal Comment on above: Performed By: #### B MP, BNP #### [facility] [address] [place] [address] Dr. Silva Burnett AST [Catalytic activity/Vol] 30 U/L Normal 15-37 Comment on above: Performed By: #### B MP, BNP #### [facility] [address] [place] [address] Dr. Silva Burnett Bilirubin [Mass/Vol] 0.9 mg/dL Normal 0.2-1.0 Comment on above: Performed By: #### B MP, BNP #### [facility] [address] [place] [address] Dr. Silva Burnett Calcium [Mass/Vol] 9.0 mg/dL Normal 8.5-10.1 [facility] Comment on above: Performed By: #### B MP, BNP #### [facility] [address] [place] [address] Dr. Silva Burnett Chloride [Moles/Vol] 98 mmol/L Normal 98-107 Comment on above: Performed By: #### B MP, BNP #### [facility] [address] [place] [address] Dr. Silva Burnett CO2 [Moles/Vol] 22.9 mmol/L Normal 21.0-32.0 [facility] Comment on above: Performed By: #### B MP, BNP #### [facility] [address] [place] [address] Dr. Silva Burnett Creatinine [Mass/Vol] 2.20 mg/dL Critically high 0.70-1.30 Comment on above: Performed By: #### B MP, BNP #### [facility] [address] [place] [address] Dr. Silva Burnett EGFR-AF SPANISH 35 mL/min/1.73m2 Critically low >=60 [facility] Comment on above: Performed By: #### B MP, BNP #### [facility] [address] [place] [address] Dr. Silva Burnett EGFR-NON AF SPANISH 29 mL/min/1.73m2 Critically low >=60 Comment on above: Performed By: #### B MP, BNP #### [facility] [address] [place] [address] Dr. Silva Burnett Globulin (S) [Mass/Vol] 4.0 g/dL Normal Comment on above: Performed By: #### B MP, BNP #### [facility] [address] [place] [address] Dr. Silva Burnett Glucose [Mass/Vol] 148 mg/dL Critically high 74-106 [facility] Comment on above: Performed By: #### B MP, BNP #### [facility] [address] [place] [address] Dr. Silva Burnett Potassium [Moles/Vol] 4.1 mmol/L Normal 3.5-5.1 Comment on above: Performed By: #### B MP, BNP #### [facility] [address] [place] [address] Dr. Silva Burnett Protein [Mass/Vol] 6.8 g/dL Normal 6.4-8.2 [facility] Comment on above: Performed By: #### B MP, BNP #### [facility] [address] [place] [address] Dr. Silva Burnett Sodium [Moles/Vol] 132 mmol/L Critically low 136-145 [facility] Comment on above: Performed By: #### B MP, BNP #### [facility] [address] [place] [address] Dr. Silva Burnett Urea nitrogen [Mass/Vol] 60.0 mg/dL Critically high 7.0-18.0 Comment on above: Performed By: #### B MP, BNP #### [facility] [address] [place] [address] Dr. Silva Burnett Urea nitrogen/Creatinine [Mass ratio] 27.3 mg/mg Normal Comment on above: Performed By: #### B MP, BNP #### [facility] [address] [place] [address] Dr. Silva Burnett PROTIMEon 05-16-2022 INR Coag (PPP) [Relative time] 1.43 {INR} Normal Comment on above: Performed By: #### V ITAD #### [facility] [address] [place] [address] Dr. Silva Burnett INR GUIDELINES SEE BELOW Normal [facility] Comment on above: Result Comment: EDMOND RED INR: 2.0 - 3.0 CONDITIONS NOT LISTED BELOW 2.5 - 3.5 FOR PROSTHETIC HEART VALVE REPLACEMENT 2.5 - 3.5 RECURRENT THROMBOSIS Performed By: #### V ITAD #### [facility] [address] [place] [address] Dr. Silva Burnett PT Coag (PPP) [Time] 15.1 s Critically high 9.0-11.6 [facility] Comment on above: Performed By: #### V ITAD #### [facility] [address] [place] [address] Dr. Silva Burnett PTTon 05-16-2022 aPTT Coag (Bld) [Time] 35.6 s Normal 22.3-36.2 [facility] Comment on above: Performed By: #### V ITAD #### [facility] [address] [place] [address] Dr. Silva Burnett TROPONIN, HIGH SENSITIVITYon 05-16-2022 HSTROP 895.9 pg/mL Critically high 4.0-76.1 [facility] Comment on above: Result Comment: CUT- OFF POINTS HAVE BEEN ESTABLISHED BASED ON THE FOURTH UNIVERSAL DEFINITIONS OF MYOCARDIAL INFARCTION. THE UPPER REFERENCE LIMIT (URL) OF TROPONIN, DEFINED THE 99TH PERCENTILE OF cTnI DISTRIBUTION IN A REFERENCE POPULATION, HAS BEEN CONFIRMED THE DECISION THRESHOLD FOR IA DIAGNOSIS. Performed By: #### B MP, BNP #### [facility] [address] [place] [address] Dr. Silva Burnett HSTROP 1000.5 pg/mL Critically high 4.0-76.1 [facility] Comment on above: Result Comment: CUT- OFF POINTS HAVE BEEN ESTABLISHED BASED ON THE FOURTH UNIVERSAL DEFINITIONS OF MYOCARDIAL INFARCTION. THE UPPER REFERENCE LIMIT (URL) OF TROPONIN, DEFINED THE 99TH PERCENTILE OF cTnI DISTRIBUTION IN A REFERENCE POPULATION, HAS BEEN CONFIRMED THE DECISION THRESHOLD FOR IA DIAGNOSIS. Performed By: #### B MP, BNP #### [facility] [address] [place] [address] Dr. Silva Burnett URINE MICROSCOPIC ONLYon BACTERIA TRACE Abnormal NONE SEEN [facility] Comment on above: Performed By: #### B MP, BNP #### [facility] [address] [place] [address] Dr. Silva Burnett Bacteria identified Cx Nom (U) INDICATED Normal [facility] Comment on above: Performed By: #### B MP, BNP #### [facility] [address] [place] [address] Dr. Silva Burnett CAST SEEN Abnormal NONE SEEN [facility] Comment on above: Performed By: #### B MP, BNP #### [facility] [address] [place] [address] Dr. Silva Burnett Crystals LM Nom (Urine sed) NONE SEEN Normal NONE SEEN [facility] Comment on above: Performed By: #### B MP, BNP #### [facility] [address] [place] [address] Dr. Silva Burnett Epithelial cells LM Ql (Urine sed) FEW Abnormal NONE SEEN /RARE [facility] Comment on above: Performed By: #### B MP, BNP #### [facility] [address] [place] [address] Dr. Silva Burnett HYALINE CAST FEW Normal [facility] Comment on above: Performed By: #### B MP, BNP #### [facility] [address] [place] [address] Dr. Silva Burnett MUCOUS SMALL Abnormal NONE SEEN [facility] Comment on above: Performed By: #### B MP, BNP #### [facility] [address] [place] [address] Dr. Silva Burnett RBC 0-2 Normal 0-2 [facility] Comment on above: Performed By: #### B MP, BNP #### [facility] [address] [place] [address] Dr. Silva Burnett WBC 5-10 Abnormal NONE SEEN [facility] Comment on above: Performed By: #### B MP, BNP #### [facility] [address] [place] [address] Dr. Silva Burnett XR CHEST 1 Von 05-16-2022 XR CHEST 1 V EXAMINATION: XR CHES T 1 V HISTORY: Asthenia , syncope COMPARISON: XR chest 02/15/2019 FINDINGS: LUNGS: Slightly elevated left hemidiaphragm, unchanged. No significant pulmonary parenchymal abnormalities. VASCULATURE: No increased pulmonary vasculature. PLEURA: No pneumothorax, effusion, or pleural thickening. CARDIAC: No cardiomegaly or cardiac silhouette abnormality. MEDIASTINUM: No visible mass or adenopathy. BONES: No fracture or visible bone lesion. OTHER: Prior sternotomy. Cardiac pacer. IMPRESSION: 1. No acute cardiopulmonary process. Electronically authenticated by: AYANA FERNANDEZ Date: 2022-05-16 15:53 Normal [facility] BNPon 05-14-2022 NT PRO BNP >96639.0 Critically high <=1,800.0 [facility] Comment on above: Performed By: #### B MP, BNP #### [facility] [address] [address] [address] Silva Burnett CBC AUTO DIFFon 05-14-2022 BASO # 0.0 103/ul Normal 0.0-0.1 Comment on above: Performed By: #### B MP, BNP #### [facility] [address] [address] [address] Silva Burnett Basophils/100 WBC (Bld) 0.3 % Normal 0.2-2.0 Comment on above: Performed By: #### B MP, BNP #### [facility] [address] [address] [address] iSlva Burnett EO # 0.0 103/ul Normal 0.0-0.7 Comment on above: Performed By: #### B MP, BNP #### [facility] [address] [address] [address] Silva Burnett Eosinophils/100 WBC (Bld) 0.0 % Critically low 0.9-7.0 Comment on above: Performed By: #### B MP, BNP #### [facility] [address] [address] [address] Silva Burnett Erythrocyte distribution width (RBC) [Ratio] 13.6 % Normal 11.0-15.0 Comment on above: Performed By: #### B MP, BNP #### [facility] [address] [place] [address] Dr. Silva Burnett Hematocrit (Bld) [Volume fraction] 41.8 % Critically low 42.0-54.0 Comment on above: Performed By: #### B MP, BNP #### [facility] [address] [place] [address] Dr. Silva Burnett Hemoglobin (Bld) [Mass/Vol] 13.6 g/dL Critically low 14.0-18.0 Comment on above: Performed By: #### B MP, BNP #### [facility] [address] [place] [address] Dr. Silva Burnett IG # 0.04 10e3/ul Critically high 0.00-0.03 [facility] Comment on above: Performed By: #### B MP, BNP #### [facility] [address] [place] [address] Dr. Silva Burnett IG % 0.5 % Normal 0.0-0.5 Comment on above: Performed By: #### B MP, BNP #### [facility] [address] [place] [address] Dr. Silva Burnett LYMPH # 0.5 103/ul Critically low 1.2-3.8 [facility] Comment on above: Performed By: #### B MP, BNP #### [facility] [address] [place] [address] Dr. Silva Burnett Lymphocytes/100 WBC (Bld) 7.1 % Critically low 20.5-60.0 Comment on above: Performed By: #### B MP, BNP #### [facility] [address] [place] [address] Dr. Sliva Burnett MANUAL DIFF REQ NO Normal [facility] Comment on above: Performed By: #### B MP, BNP #### [facility] [address] [place] [address] Dr. Silva Burnett MCH (RBC) [Entitic mass] 29.4 pg Normal 25.9-34.0 [facility] Comment on above: Performed By: #### B MP, BNP #### [facility] [address] [place] [address] Dr. Silva Burnett MCHC (RBC) [Mass/Vol] 32.5 g/dL Normal 29.9-35.2 [facility] Comment on above: Performed By: #### B MP, BNP #### [facility] [address] [place] [address] Dr. Silva Burnett MCV (RBC) [Entitic vol] 90.3 fL Normal 80.0-94.0 [facility] Comment on above: Performed By: #### B MP, BNP #### [facility] [address] [place] [address] Dr. Silva Burnett MONO # 0.4 103/ul Normal 0.3-0.8 [facility] Comment on above: Performed By: #### B MP, BNP #### [facility] [address] [place] [address] Dr. Silva Burnett Monocytes/100 WBC (Bld) 5.4 % Normal 1.7-12.0 [facility] Comment on above: Performed By: #### B MP, BNP #### [facility] [address] [place] [address] Dr. Silva Burnett NEUT # 6.6 103/ul Critically high 1.4-6.5 [facility] Comment on above: Performed By: #### B MP, BNP #### [facility] [address] [place] [address] Dr. Silva Burnett Neutrophils/100 WBC (Bld) 86.7 % Critically high 43.0-75.0 [facility] Comment on above: Performed By: #### B MP, BNP #### [facility] [address] [place] [address] Dr. Silva Burnett Platelet mean volume (Bld) [Entitic vol] 10.4 fL Normal 9.5-13.5 [facility] Comment on above: Performed By: #### B MP, BNP #### [facility] [address] [place] [address] Dr. Silva Burnett PLT 110 103/ul Critically low 150-450 [facility] Comment on above: Performed By: #### B MP, BNP #### [facility] [address] [place] [address] Dr. Silva Burnett RBC 4.63 106/ul Critically low 4.70-6.10 [facility] Comment on above: Performed By: #### B MP, BNP #### [facility] [address] [place] [address] Dr. Silva Burnett WBC 7.6 103/ul Normal 4.0-11.0 Comment on above: Performed By: #### B MP, BNP #### [facility] [address] [place] [address] Dr. Silva Burnett CULTURE URINEon 05-14-2022 CULTURE URINE Culture Observations : NO GROWTH. Normal Comment on above: Performed By: #### V ITAD #### [facility] [address] [place] [address] Dr. Silva Burnett IRONon 05-14-2022 Iron [Mass/Vol] 18.0 ug/dL Critically low 65.0-175.0 [facility] Comment on above: Performed By: #### I CUBA #### [facility] [address] [place] [address] Dr. Silva Burnett PROF 14(COMP METB)on 022 Albumin [Mass/Vol] 3.4 g/dL Normal 3.4-5.0 [facility] Comment on above: Performed By: #### B MP, BNP #### [facility] [address] [place] [address] Dr. Silva Burnett Albumin/Globulin [Mass ratio] 0.8 {ratio} Normal Comment on above: Performed By: #### B MP, BNP #### [facility] [address] [place] [address] Dr. Silva Burnett ALP [Catalytic activity/Vol] 77 U/L Normal 46-116 Comment on above: Performed By: #### B MP, BNP #### [facility] [address] [address] [address] Silva Burnett ALT [Catalytic activity/Vol] 16 U/L Normal 16-63 Comment on above: Performed By: #### B MP, BNP #### [facility] [address] [address] [address] Silva Burnett Anion gap [Moles/Vol] 13.3 mmol/L Normal Comment on above: Performed By: #### B MP, BNP #### [facility] [address] [address] [address] Silva Burnett AST [Catalytic activity/Vol] 23 U/L Normal 15-37 Comment on above: Performed By: #### B MP, BNP #### [facility] [address] [place] [address] Dr. Silva Burnett Bilirubin [Mass/Vol] 0.9 mg/dL Normal 0.2-1.0 Comment on above: Performed By: #### B MP, BNP #### [facility] [address] [place] [address] Dr. Silva Burnett Calcium [Mass/Vol] 9.3 mg/dL Normal 8.5-10.1 [facility] Comment on above: Performed By: #### B MP, BNP #### [facility] [address] [place] [address] Dr. Silva Burnett Chloride [Moles/Vol] 98 mmol/L Normal 98-107 Comment on above: Performed By: #### B MP, BNP #### [facility] [address] [place] [address] Dr. Silva Burnett CO2 [Moles/Vol] 26.0 mmol/L Normal 21.0-32.0 [facility] Comment on above: Performed By: #### B MP, BNP #### [facility] [address] [address] [address] Silva Burnett Creatinine [Mass/Vol] 1.84 mg/dL Critically high 0.70-1.30 Comment on above: Performed By: #### B MP, BNP #### [facility] [address] [address] [address] Silva Burnett EGFR-AF SPANISH 43 mL/min/1.73m2 Critically low >=60 Comment on above: Performed By: #### B MP, BNP #### [facility] [address] [address] [address] Silva Burnett EGFR-NON AF SPANISH 36 mL/min/1.73m2 Critically low >=60 Comment on above: Performed By: #### B MP, BNP #### [facility] [address] [address] [address] Silva Burnett Globulin (S) [Mass/Vol] 4.1 g/dL Normal Comment on above: Performed By: #### B MP, BNP #### [facility] [address] [address] [address] Silva Burnett Glucose [Mass/Vol] 132 mg/dL Critically high 74-106 [facility] Comment on above: Performed By: #### B MP, BNP #### [facility] [address] [address] [address] Silva Burnett Potassium [Moles/Vol] 4.3 mmol/L Normal 3.5-5.1 Comment on above: Performed By: #### B MP, BNP #### [facility] [address] [address] [address] Silva Burnett Protein [Mass/Vol] 7.5 g/dL Normal 6.4-8.2 [facility] Comment on above: Performed By: #### B MP, BNP #### [facility] [address] [address] [address] Silva Burnett Sodium [Moles/Vol] 133 mmol/L Critically low 136-145 [facility] Comment on above: Performed By: #### B MP, BNP #### [facility] [address] [address] [address] Silva Burnett Urea nitrogen [Mass/Vol] 38.0 mg/dL Critically high 7.0-18.0 Comment on above: Performed By: #### B MP, BNP #### [facility] [address] [address] [address] Silva Burnett Urea nitrogen/Creatinine [Mass ratio] 20.7 mg/mg Normal [facility] Comment on above: Performed By: #### B MP, BNP #### [facility] [address] [address] [address] Silva Burnett UA RANDOM W/MICROSCOPICon BACTERIA NONE SEEN Normal NONE SEEN Comment on above: Performed By: #### U AMIC #### [facility] [address] [place] [address] Dr. Silva Burnett Bilirubin Ql (U) Negative Normal NEGATIVE [facility] Comment on above: Performed By: #### U AMIC #### [facility] [address] [place] [address] Dr. Silva Burnett CAST NONE SEEN Normal NONE SEEN Comment on above: Performed By: #### U AMIC #### [facility] [address] [place] [address] Dr. Silva Burnett Clarity (U) CLEAR Normal CLEAR Comment on above: Performed By: #### U AMIC #### [facility] [address] [place] [address] Dr. Silva Burnett Color (U) YELLOW Normal YELLOW Comment on above: Performed By: #### U AMIC #### [facility] [address] [place] [address] Dr. Silva Burnett Crystals LM Nom (Urine sed) NONE SEEN Normal NONE SEEN Comment on above: Performed By: #### U AMIC #### [facility] [address] [address] [address] Silva Burnett Epithelial cells LM Ql (Urine sed) NONE SEEN Normal NONE SEEN /RARE [facility] Comment on above: Performed By: #### U AMIC #### [facility] [address] [place] [address] Dr. Silva Burnett Glucose Ql (U) Negative Normal NEGATIVE [facility] Comment on above: Performed By: #### U AMIC #### [facility] [address] [address] [address] Silva Burnett Hemoglobin Ql (U) MODERATE Abnormal NEGATIVE [facility] Comment on above: Performed By: #### U AMIC #### [facility] [address] [address] [address] Silva Burnett Ketones Ql (U) Negative Normal NEGATIVE [facility] Comment on above: Performed By: #### U AMIC #### [facility] [address] [address] [address] Silva Burnett LEUKOCYTES Negative Normal NEGATIVE Comment on above: Performed By: #### U AMIC #### [facility] [address] [address] [address] Silva Burnett MUCOUS NONE SEEN Normal NONE SEEN [facility] Comment on above: Performed By: #### U AMIC #### [facility] [address] [address] [address] Silva Burnett Nitrite Ql (U) Negative Normal NEGATIVE [facility] Comment on above: Performed By: #### U AMIC #### [facility] [address] [address] [address] Silva Burnett pH (U) 6.0 [pH] Normal 5-9 Comment on above: Performed By: #### U AMIC #### [facility] [address] [address] [address] Silva Burnett RBC 0-2 Normal 0-2 Comment on above: Performed By: #### U AMIC #### [facility] [address] [address] [address] Silva Burnett SPEC GRAVITY 1.025 Normal 1.005-<=1.0 25 Comment on above: Performed By: #### U AMIC #### [facility] [address] [address] [address] Silva Burnett UA PROTEIN 30 mg/dl Abnormal NEGATIVE/ TRACE [facility] Comment on above: Performed By: #### U AMIC #### [facility] [address] [address] [address] Silva Burnett Urobilinogen Qn (U) 1.0 {Zaina'U}/dL Normal 0.2 - 1. 0 [facility] Comment on above: Performed By: #### U AMIC #### [facility] [address] [address] [address] Silva Burnett WBC NONE SEEN Normal NONE SEEN [facility] Comment on above: Performed By: #### U AMIC #### [facility] [address] [address] [address] Silva Burnett ICD REMOTE CHECKon 2 AV Delay Adaptive Paced Minimum (ms) [address] [facility] AV Delay Adaptive Sensed Minimum (ms) [address] [facility] Bj RA Pacing Amplitude (volts) [address] [facility] Bj RA Pacing Polarity BI [facility] Bj RA Pacing Pulse Width (ms) 0.[address] [facility] Bj RA Sensing Amplitude (mvolts) 0.[address] [facility] Bj RA Sensing Polarity BI [facility] Bj RV Pacing Amplitude (volts) [address] [facility] Bj RV Pacing Polarity BI [facility] Bj RV Pacing Pulse Width (ms) 0.[address] [facility] Bj RV Sensing Amplitude (mvolts) 0.[address] [facility] Bj RV Sensing Polarity BI [facility] Detection Configuration (Vent) 2 - Zone [facility] FastVT_Detection Interval [address] [facility] FastVT_Therapy Configuration 1 ATP(s) + 8 Shock(s) [facility] ICD FastVT DetectionStatus ENABLED [facility] ICD-AMS EPISODES 170 {beats}/min [facility] ICD-ATP Episodes (Vent) [address] [facility] ICD-ATRIALFIBRILLAT ION [address] [facility] ICD-ATRIALTACHYCARD IA [address] [facility] ICD-ATRIALTACHYCARD IA [address] [facility] ICD-Device Mfg BSX [facility] ICD-Fast Ventricular Tachycardia [address] [facility] ICD-LEADIMPEDANCEAT RIAL [address] [facility] ICD-Percent Pacing (Atrial) 5 % [facility] ICD-Percent Pacing (Vent) 1 % [facility] ICD-Shocks Aborted (Vent) [address] [facility] [id number] D [address] [facility] ICD-SHOCKSABORTED 0 [facility] ICD-SHOCKSDELIVERED VENTRICULAR [address] [facility] ICD-Ventricular Fibrillation [address] [facility] Lead Impedance (RV) 416 ohm [facility] Lead Impedance High Voltage [address] [facility] Lead1 Mfg BSX [facility] Lead2 Mfg BSX [facility] Location RV [facility] Location RA [facility] Lower Rate (bpm) 50 {beats}/min [facility] Max Sensor Rate (bpm) 130 {beats}/min [facility] MDT_PROG_TACHY_ZONE _DETECTIONS_STATUS ENABLED [facility] Model D142 INOGEN [facility] Model 0675 [place] 4-Front [facility] Model 7741 Ingevity [facility] Pacing Mode DDDR [facility] Serial Number [id number] [facility] Serial Number [id number] [facility] Serial Number [id number] [facility] Test Charge Energy 23 J [facility] Test Charge Time 10.1 s [facility] Therapy Status (Vent) Enabled [facility] Thresh RA Capture Amplitude (volts) 0.[address] [facility] Thresh RA Capture Duration (ms) 0.[address] [facility] Thresh RV Capture Amplitude (VOLTS) 0.[address] [facility] Thresh RV Capture Duration (MS) 0.[address] [facility] Tracking Rate (bpm) 130 {beats}/min [facility] VF Zone Detection Interval [address] [facility] VF Zone Therapy Configuration 1 ATP(s) + 8 Shock(s) [facility] No Panel Informationon 05-08 BLANK _ [facility] ICD-ATRIALTACHYCARD IA [address] [facility] ICD-Fast Ventricular Tachycardia [address] [facility] Implant Date 03/24/[address] [facility] ICD REMOTE CHECKon 2 AV Delay Adaptive Paced Minimum (ms) [address] [facility] AV Delay Adaptive Sensed Minimum (ms) [address] [facility] Bj RA Pacing Amplitude (volts) [address] [facility] Bj RA Pacing Polarity BI [facility] Bj RA Pacing Pulse Width (ms) 0.[address] [facility] Bj RA Sensing Amplitude (mvolts) 0.[address] [facility] Bj RA Sensing Polarity BI [facility] Bj RV Pacing Amplitude (volts) [address] [facility] Bj RV Pacing Polarity BI [facility] Bj RV Pacing Pulse Width (ms) 0.[address] [facility] Bj RV Sensing Amplitude (mvolts) 0.[address] [facility] Bj RV Sensing Polarity BI [facility] Detection Configuration (Vent) 2 - Zone [facility] FastVT_Detection Interval [address] [facility] FastVT_Therapy Configuration 1 ATP(s) + 8 Shock(s) [facility] ICD FastVT DetectionStatus ENABLED [facility] ICD-AMS EPISODES 170 {beats}/min [facility] ICD-ATP Episodes (Vent) [address] [facility] ICD-ATRIALFIBRILLAT ION [address] [facility] ICD-ATRIALTACHYCARD IA [address] [facility] ICD-ATRIALTACHYCARD IA [address] [facility] ICD-Device Mfg BSX [facility] ICD-Fast Ventricular Tachycardia [address] [facility] ICD-LEADIMPEDANCEAT RIAL [address] [facility] ICD-Percent Pacing (Atrial) 6 % [facility] ICD-Percent Pacing (Vent) 1 % [facility] ICD-Shocks Aborted (Vent) [address] [facility] [id number] D [address] [facility] ICD-SHOCKSABORTED 0 [facility] ICD-SHOCKSDELIVERED VENTRICULAR [address] [facility] ICD-Ventricular Fibrillation [address] [facility] Lead Impedance (RV) 427 ohm [facility] Lead Impedance High Voltage [address] [facility] Lead1 Mfg BSX [facility] Lead2 Mfg BSX [facility] Location RV [facility] Location RA [facility] Lower Rate (bpm) 50 {beats}/min [facility] Max Sensor Rate (bpm) 130 {beats}/min [facility] MDT_PROG_TACHY_ZONE _DETECTIONS_STATUS ENABLED [facility] Model D142 INOGEN [facility] Model 06[address] [place] 4-Front [facility] Model 7741 Ingevity [facility] Pacing Mode DDDR [facility] Serial Number [id number] [facility] Serial Number [id number] [facility] Serial Number [id number] [facility] Test Charge Energy 23 J [facility] Test Charge Time 10 s [facility] Therapy Status (Vent) Enabled [facility] Thresh RA Capture Amplitude (volts) 0.[address] [facility] Thresh RA Capture Duration (ms) 0.[address] [facility] Thresh RV Capture Amplitude (VOLTS) 0.[address] [facility] Thresh RV Capture Duration (MS) 0.[address] [facility] Tracking Rate (bpm) 130 {beats}/min [facility] VF Zone Detection Interval [address] [facility] VF Zone Therapy Configuration 1 ATP(s) + 8 Shock(s) [facility] No Panel Informationon 02-06 BLANK _ [facility] ICD-ATRIALTACHYCARD IA [address] [facility] ICD-Fast Ventricular Tachycardia [address] [facility] Implant Date 03/24/[address] [facility] C [place] 12-23-2018 Wound Culture Microbiology PROCEDURE: Wound Culture [R1] SOURCE: Abscess BODY SITE: Anus COLLECTED DATE/TIME: 12/17/2018 16:12 EDT RECEIVED DATE/TIME: 12/18/2018 18:51 EDT START DATE/TIME: 12/18/2018 18:51 EDT FREE TEXT SOURCE: STEPHANIE YOUNG, Wilson BROWN MD, Wilson Poe FINAL REPORTS Final Report [] Verified Date/Time: 12/23/2018 15:07 EDT 1+ Escherichia coli 1+ Streptococcus agalactiae (Group B) 1+ Proteus vulgaris Scant growth of Staphylococcus species coagulase negative 2+ Bacteroides species Presumptive STAINS Gram Stain Report [] Verified Date/Time: 12/18/2018 21:58 EDT Occasional epithelial cells 3+ Gram Negative Rods 2+ Gram Positive Cocci SUSCEPTIBILITY RESULTS LEGEND: S=Susceptible, N/R=Not Reported, Blank=Data not available, or drug not advisable or tested, I=Intermediate, ESBL=Extended spectrum beta-lactamase, R=Resistant, TFG=Thymidine-dependent strain, HUMBERTO=Beta-lactamase positive, KYAW=mcg/m;(mg/L), S*=Predicted susceptible interp, R*=Predicted resistant interp EC Strep B Provul Antibiotic KYAW Dilutn KYAW Interp KYAW Dilutn KYAW Interp KYAW Dilutn KYAW Interp Amikacin <=16 S <=16 S Amoxicillin/ <=8/4 S <=4/2 <=8/4 S Clavulanate Ampicillin >16 R <=2 N/R >16 R Ampicillin/ 16/8 I <=8/4 <=8/4 S Sulbactam Cefazolin <=8 S <=8 >16 R Cefepime <=4 S <=4 S Cefotaxime <=2 S <=2 S Ceftazidime <=1 S 4 S Ceftriaxone <=8 S <=8 S Cefuroxime 8 S >16 R Ciprofloxacin >4 R <=1 <=1 S Clindamycin <=0.25 N/R Daptomycin <=1 S Ertapenem <=2 S <=2 S Erythromycin >4 N/R Gentamicin >8 R <=4 S Imipenem <=1 S 2 I Levofloxacin >4 R <=1 S <=2 S Linezolid <=2 S Nitrofurantoin <=32 <=32 >64 Oxacillin <=0.25 Penicillin <=0.03 S Microbiology SUSCEPTIBILITY RESULTS LEGEND: S=Susceptible, N/R=Not Reported, Blank=Data not available, or drug not advisable or tested, I=Intermediate, ESBL=Extended spectrum beta-lactamase, R=Resistant, TFG=Thymidine-dependent strain, HUMBERTO=Beta-lactamase positive, KYAW=mcg/m;(mg/L), S*=Predicted susceptible interp, R*=Predicted resistant interp EC Strep B Provul Antibiotic KYAW Dilutn KYAW Interp KYAW Dilutn KYAW Interp KYAW Dilutn KYAW Interp Piperacillin/ <=16 S <=16 S Tazobactam Rifampin <=1 Tetracycline <=4 S >8 N/R >8 R Tobramycin 8 I <=4 S Trimethoprim/ <=2/38 S <=0.5/9.5 <=2/38 S Sulfa Vancomycin Not N/R Applicable Performing Locations R1: This test was performed at: [facility], [address] [place] [address], [id number] , [facility] Comment on above: Performed By: #### [id number] #### [facility] [address] [place] [id number] Coding Summary.on 12-23-2018 Coding Summary. 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 However, the narrative phrase printed from the coding software may appear abbreviated, or result in slightly different terminology. Coded By: Abbey Tim CphT Date Saved: 12/23/2018 01:25 pm [facility] Vital Signs Date Time Vital Sign Value Performing Clinician Karel newell 04-26-2023 15:08040 Body height 182.9 cm Andreas Del Cid MD Work Phone: [facility] 04-26-2023 15:08-0400 Body weight 83.92 kg Andreas Del Cid MD Work Phone: [facility] 04-26-2023 15:08-0400 Diastolic blood pressure 62 mm[Hg] Andreas Del Cid MD Work Phone: [facility] 04-26-2023 15:08-0400 Heart rate 73 /min Andreas Del Cid MD Work Phone: [facility] 04-26-2023 15:08-0400 Respiratory rate 12 /min Andreas Del Cid MD Work Phone: [facility] 04-26-2023 15:08-0400 SaO2% (BldA) [Mass fraction] 98 % Andreas Del Cid MD Work Phone: [facility] 04-26-2023 15:08-0400 Systolic blood pressure 116 mm[Hg] Andreas Del Cid MD Work Phone: [facility] 10-25-2022 15:44-0500 Body height 182.9 cm Andreas Del Cid MD Work Phone: [facility] 10-25-2022 15:44-0500 Body weight 83.92 kg Andreas Del Cid MD Work Phone: [facility] 10-25-2022 15:44-0500 Diastolic blood pressure 66 mm[Hg] Andreas Del Cid MD Work Phone: [facility] 10-25-2022 15:44-0500 Heart rate 74 /min Andreas Del Cid MD Work Phone: [facility] 10-25-2022 15:44-0500 SaO2% (BldA) [Mass fraction] 98 % Andreas Del Cid MD Work Phone: [facility] 10-25-2022 15:44-0500 Systolic blood pressure 116 mm[Hg] Andreas Del Cid MD Work Phone: [facility] 10-02-2022 13:10-0500 Body temperature 96.69 [degF] ARACELI Kim MD Work Phone: [facility] 10-02-2022 13:10-0500 Body weight 86.18 kg ARACELI Kim MD Work Phone: [facility] 10-02-2022 13:10-0500 Diastolic blood pressure 71 mm[Hg] ARACELI Kim MD Work Phone: [facility] 10-02-2022 13:10-0500 Heart rate 66 /min ARACELI Kim MD Work Phone: [facility] 10-02-2022 13:10-0500 Respiratory rate 18 /min ARACELI Kim MD Work Phone: [facility] 10-02-2022 13:10-0500 SaO2% (BldA) [Mass fraction] 98 % ARACELI Kim MD Work Phone: [facility] 10-02-2022 13:10-0500 Systolic blood pressure 113 mm[Hg] ARACELI Kim MD Work Phone: [facility] 09-03-2022 11:35-0500 Body height 182.9 cm John Jefferson MD Work Phone: [facility] 09-03-2022 11:35-0500 Body temperature 97.9 [degF] John Jefferson MD Work Phone: [facility] 09-03-2022 11:35-0500 Body weight 84.01 kg John Jefferson MD Work Phone: [facility] 09-03-2022 11:35-0500 Diastolic blood pressure 78 mm[Hg] John Jefferson MD Work Phone: [facility] 09-03-2022 11:35-0500 Heart rate 82 /min John Jefferson MD Work Phone: [facility] 09-03-2022 11:35-0500 Respiratory rate 18 /min John Jefferson MD Work Phone: [facility] 09-03-2022 11:35-0500 SaO2% (BldA) [Mass fraction] 98 % John Jefferson MD Work Phone: [facility] 09-03-2022 11:35-0500 Systolic blood pressure 133 mm[Hg] John Jefferson MD Work Phone: [facility] 06-06-2022 14:32-0400 Body height 182.9 cm Andreas Del Cid MD Work Phone: [facility] 06-06-2022 14:32-0400 Body weight 76.66 kg Andreas Del Cid MD Work Phone: [facility] 06-06-2022 14:32-0400 Diastolic blood pressure 63 mm[Hg] Andreas Del Cid MD Work Phone: [facility] 06-06-2022 14:32-0400 Heart rate 71 /min Andreas Del Cid MD Work Phone: [facility] 06-06-2022 14:32-0400 SaO2% (BldA) [Mass fraction] 97 % Andreas Del Cid MD Work Phone: [facility] 06-06-2022 14:32-0400 Systolic blood pressure 101 mm[Hg] Andreas Del Cid MD Work Phone: [facility] 12-11-2021 13:58-0400 Body temperature 97.11 [degF] ARACELI Kim MD Work Phone: [facility] 12-11-2021 13:58-0400 Body weight 82.1 kg ARACELI Kim MD Work Phone: [facility] 12-11-2021 13:58-0400 Diastolic blood pressure 78 mm[Hg] ARACELI Kim MD Work Phone: [facility] 12-11-2021 13:58-0400 Heart rate 80 /min ARACELI Kim MD Work Phone: [facility] 12-11-2021 13:58-0400 Respiratory rate 18 /min ARACELI Kim MD Work Phone: [facility] 12-11-2021 13:58-0400 SaO2% (BldA) [Mass fraction] 99 % ARACELI Kim MD Work Phone: [facility] 12-11-2021 13:58-0400 Systolic blood pressure 130 mm[Hg] NA Raymond YOUNG Work Phone: [facility] Encounters Encounter Date Encounter Type Care Provider Facility Start: 09-24-2023 End: 09-24-2023 ambulatory [facility] Facility:[facility] Start: 08-27-2023 Telephone encounter Virgil Pacheco nd, MD Work Phone: Cardiology Comment on above: Appointment (Left a message with the patient regarding the cancellation of 10/22/2023 with . 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, unspecified CKD stage, unspecified whether custodial insulin use (HCC) (Primary Dx); PVD (peripheral vascular disease) (HCC); Atherosclerotic heart disease of [place]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) Start: 04-26-2023 End: 04-27-2023 ambulatory [facility] Facility:[facility] Start: 04-02-2023 End: 04-02-2023 [facility] Facility:[facility] Start: 03-26-2023 End: 03-26-2023 ambulatory [facility] Facility:[facility] Start: 02-21-2023 Follow-up encounter Rubén Carney ba, MD Work Phone: [facility] Start: 02-21-2023 ICD Remote F/U Rubén Howell Work Phone: [facility] Department Start: 02-08-2023 End: 02-09-[address] DOCTOR CARRIZALES Facility: Start: 12-03-2022 Orders Only Andreas Del Cid MD Work Phone: Cardiology Start: 11-29-2022 Patient encounter procedure John Jefferson MD Work Phone: Vascular Surg Dept Start: 11-29-2022 Telephone encounter John carrillo MD Work Phone: Vascular Surg Dept Comment on above: Surgery Cancelled Start: 11-06-2022 Follow-up encounter Rubén Carney ba, MD Work Phone: [facility] Start: 11-06-2022 ICD Remote F/U Rubén Howell Work Phone: [facility] Department Start: 10-31-2022 Telephone encounter John carrillo MD Work Phone: Vascular Surg Dept Comment on above: Appointment Start: 10-25-2022 End: 10-26-2022 ambulatory [facility] Facility:[facility] Start: 10-25-2022 End: 10-25-2022 Patient encounter procedure Andreas Del Cid MD Work Phone: Cardiology Comment on above: 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[place] coronary artery of [place] heart without angina pectoris (Primary Dx); Heart failure, acute systolic (HCC) Start: 10-25-2022 End: 10-25-2022 ambulatory ANDREAS DEL CID Facility:[facility] Start: 10-25-2022 End: 10-25-2022 Subsequent hospital visit by physician [facility] Comment on above: Chronic systolic hea rt failure (HCC) [I50.22] Start: 10-02-2022 End: 10-02-2022 ambulatory [facility] Facility:[facility] Start: 10-02-2022 End: 10-02-2022 Patient encounter procedure Yung Kim MD Work Phone: Radiation Oncology Comment on above: Malignant neoplasm o f prostate (HCC) (Primary Dx) Start: 09-18-2022 End: 12-31-2022 [facility] Facility[facility] Start: 09-12-2022 End: 09-13-[address] [facility]AI[facility] KIM Facility:[facility] Start: 09-07-2022 Telephone encounter Andreas poe MD Work Phone: Cardiology Comment on above: Nm Pet Request Start: 09-06-2022 Orders Only Andreas Del Cid MD Work Phone: Cardiology Comment on above: Chronic systolic hea rt failure (HCC) (Primary Dx); Coronary artery disease involving [place] coronary artery of [place] heart without angina pectoris Start: 09-03-2022 End: 09-03-2022 Patient encounter procedure John Jefferson MD Work Phone: Vascular Surg Dept Comment on above: 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[place] coronary artery of [place] heart without angina pectoris (Primary Dx); Heart failure, acute systolic (HCC); Mixed hyperlipidemia; Stenosis of left carotid artery; Cerebrovascular acci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); Chronic 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); Carotid stenosis, asymptomatic, bilateral Start: 08-30-2022 End: 08-31-2022 ambulatory [facility] Facility: Start: 08-07-2022 Follow-up encounter Rubén Carney ba, MD Work Phone: [facility] Start: 08-07-2022 ICD Remote F/U Rubén Howell Work Phone: [facility] Department Start: 08-03-2022 Orders Only John Howell Work Phone: Vascular Surg Dept Comment on above: Bilateral carotid ar annalee stenosis (Primary Dx) Start: 08-01-2022 Telephone encounter Francisca Thompson MD Work Phone: [place] Comment on above: Appointment Start: 07-30-2022 Telephone encounter Francisca Thompson MD Work Phone: NOC Comment on above: Appointment Start: 07-25-2022 Telephone encounter Andreas poe MD Work Phone: Cardiology Comment on above: Received Outside Med ical Records Start: 07-23-2022 End: 07-24-2022 ambulatory [facility] Facility:[facility] Start: 07-23-2022 End: 07-23-2022 ambulatory [facility] Start: 07-18-2022 End: 07-19-[address] FRANCISCA THOMPSON . Facility:[facility] Start: 06-27-2022 End: 06-28-[address] FRANCISCA THOMPSON . Facility:[facility] Start: 06-27-2022 End: 06-28-[address] FRANCISCA THOMPSON . Facility:[facility] Start: 06-18-2022 Encounter for preprocedural laboratory examination [facility] Start: 06-14-2022 End: 06-15-2022 Encounter for preprocedural laboratory examination DR FRANCISCA THOMPSON . Facility:[facility] Start: 06-14-2022 End: 06-15-[address] FRANCISCA THOMPSON . Facility:[facility] Start: 06-07-2022 End: 09-18-[address] FRANCISCA THOMPSON . Facility:[facility] Start: 06-06-2022 End: 06-06-2022 Orders Only Andreas Del Cid MD Work Phone: Cardiology Comment on above: Chronic systolic hea rt failure (HCC) (Primary Dx) Mitral valve insuffi ciency, unspecified etiology (Primary Dx); Chronic systolic heart failure (HCC) Start: 05-28-2022 End: 05-28-2022 ambulatory [facility] Start: 05-17-2022 End: 05-24-2022 Evaluation and management of inpatient SHARON HOOKS Facility:[facility] Start: 05-16-2022 End: 05-17-2022 ambulatory SHARON HOOKS . Facility: Start: 05-14-2022 End: 05-15-[address] FRANCISCA THOMPSON . Facility:[facility] Start: 05-08-2022 Follow-up encounter Rubén Carney ba, MD Work Phone: [facility] Start: 05-08-2022 ICD Remote F/U Rubén Howell Work Phone: [facility] Department Start: 04-26-2022 End: 04-26-2022 ambulatory Yung Denilson Kim MD Work Phone: Radiation Oncology Comment on above: Malignant neoplasm o f prostate (HCC) (Primary Dx) Start: 04-26-2022 End: 04-26-2022 Telemedicine consultation with patient Yung Denilson Kim MD Work Phone: [facility] Start: 02-06-2022 Follow-up encounter Rubén Carney ba, MD Work Phone: [facility] Start: 02-06-2022 ICD Remote F/U Rubén Howell Work Phone: [facility] Department Start: 01-15-2022 Orders Only Lilia Barone RN Dominick tology/Oncology Comment on above: Unspecified hypothyr oidism (Primary Dx); Hypercholesterolemia; Abnormal finding of blood chemistry, unspecified Start: 01-03-2022 Patient encounter procedure Yung Kim MD Work Phone: [facility] Start: 01-03-2022 Radiation Oncology Note G Navin Kim MD Work Phone: Radiation Oncology Comment on above: Completion Note Start: 12-18-2021 Patient encounter procedure Yung Kim MD Work Phone: [facility] Start: 12-18-2021 Radiation Oncology Note Yung Kim MD Work Phone: Radiation Oncology Comment on above: Completion Note Start: 12-11-2021 End: 12-11-2021 Patient encounter procedure Yung Kim MD Work Phone: Radiation Oncology Comment on above: Malignant neoplasm o f prostate (HCC) (Primary Dx) Start: 04-30-2012 Patient encounter status ARACELI phillips MD Work Phone: [facility] Work Phone: Procedures Date Procedure Procedure Detail Performing Clinician Start: 02-21-2023 ICD REMOTE CHECK Rubén Bucio MD Work Phone: Start: 11-06-2022 ICD REMOTE CHECK Rubén Bucio MD Work Phone: Start: 10-25-2022 Myocrd img pet prfuj plater printed circuit board panels std rst&strs cncrnt ct Andreas Del Cid MD Work Phone: Start: 10-25-2022 Myocrd img pet prfuj w/metab 2rtracer cncrnt ct Andreas Del Cid MD Work Phone: Start: 10-25-2022 End: 10-25-2022 Gluc bld gluc mntr dev cleared fda spec home use [facility] Start: 09-12-2022 End: 09-12-2022 PSA screening [facility] Provider Comment on above: Performed By: #### B MP, BNP #### [facility] [address] [place] [address] Dr. Silva Burnett Start: 08-07-2022 ICD REMOTE CHECK Rubén Bucio MD Work Phone: Start: 05-08-2022 ICD REMOTE CHECK Rubén Bucio MD Work Phone: Start: 02-06-2022 ICD REMOTE CHECK Rubén Bucio MD Work Phone: Start: 06-17-2012 History of coronary artery bypass grafting S/P CABG (coronary artery bypass graft) ARACELI Kim MD Work Phone: Plan of Treatment Date Care Activity Detail Author Start: 06-13-2030 Urine microalbumin profile [facility] Start: 10-25-2025 DIABETES SCREEN DIABETES SCREEN [facility] Start: 06-06-2025 DIABETES SCREEN DIABETES SCREEN [facility] Start: 04-19-2025 DIABETES SCREEN DIABETES SCREEN [facility] Start: 01-15-2025 DIABETES SCREEN DIABETES SCREEN [facility] Start: 11-09-2024 DIABETES SCREEN DIABETES SCREEN [facility] Start: 05-17-2023 Influenza vaccination [facility] Start: 04-01-2023 End: 06-01-2023 Prostate specific Ag [Mass/volume] in Serum or Plasma PSA/PROSTSPECAG DIAG Lab Routine Malignant neoplasm of prostate (HCC) Expected: 04/01/2023 (Approximate), Expires: 06/01/2023 [facility] Work Phone: Comment on above: Expected: 04/01/2023 (Approximate), Expires: 06/01/2023 Start: 01-15-2023 Hepatitis B surface antibody level LDL CHOLESTEROL [facility] Start: 10-27-2022 End: 12-27-2022 Prostate specific Ag [Mass/volume] in Serum or Plasma PSA/PROSTSPECAG DIAG Lab Routine Malignant neoplasm of prostate (HCC) Expected: 10/27/2022, Expires: 12/27/2022 [facility] Work Phone: Comment on above: Expected: 10/27/2022 , Expires: 12/27/2022 Start: 09-16-2022 ADVANCE DIRECTIVE DISCUSSION ADVANCE DIRECTIVE DISCUSSION [facility] Start: 09-16-2022 DEPRESSION ASSESSMENT DEPRESSION ASS ESSMENT [facility] Start: 07-18-2022 Hemoglobin A1c measurement HbA1C [facility] Start: 07-18-2022 Hemoglobin A1c/Hemoglobin.total in Blood HBA1C [facility] Start: 06-06-2022 End: 08-06-2022 Comprehensive metabolic 2000 panel - Serum or Plasma [facility] Work Phone: Comment on above: Expected: 06/06/2022 , Expires: 08/06/2022 Start: 06-06-2022 End: 08-06-2022 Natriuretic peptide.B prohormone N-Terminal [Mass/volume] in Serum or Plasma [facility] Work Phone: Comment on above: Expected: 06/06/2022 , Expires: 08/06/2022 Start: 05-17-2022 Influenza vaccination C [facility] Start: 01-15-2022 End: 03-17-2022 Hemoglobin A1c/Hemoglobin.total in Blood [facility] Work Phone: Comment on above: Expected: 01/15/2022 , Expires: 03/17/2022 Start: 01-15-2022 End: 03-17-2022 Insulin [Units/volume] in Serum or Plasma [facility] Work Phone: Comment on above: Expected: 01/15/2022 , Expires: 03/17/2022 Start: 01-15-2022 End: 03-17-2022 IRON + TIBC [facility] Work Phone: Comment on above: Expected: 01/15/2022 , Expires: 03/17/2022 Start: 01-15-2022 End: 03-17-2022 LIPID PANEL BASIC [facility] Work Phone: Comment on above: Expected: 01/15/2022 , Expires: 03/17/2022 Start: 01-15-2022 End: 03-17-2022 T3 UPTAKE [facility] Work Phone: Comment on above: Expected: 01/15/2022 , Expires: 03/17/2022 Start: 01-15-2022 End: 03-17-2022 T4 FREE/FREE THYROX [facility] Work Phone: Comment on above: Expected: 01/15/2022 , Expires: 03/17/2022 Start: 01-15-2022 End: 03-17-2022 T4/FTI/T4U [facility] Work Phone: Comment on above: Expected: 01/15/2022 , Expires: 03/17/2022 Start: 01-15-2022 End: 03-17-2022 Thyrotropin [Units/volume] in Serum or Plasma [facility] Work Phone: Comment on above: Expected: 01/15/2022 , Expires: 03/17/2022 Start: 01-07-2022 End: 03-09-2022 Prostate specific Ag [Mass/volume] in Serum or Plasma PSA/PROSTSPECAG DIAG Lab Routine Malignant neoplasm of prostate (HCC) Expected: 01/07/2022, Expires: 03/09/2022 [facility] Work Phone: Comment on above: Expected: 01/07/2022 , Expires: 03/09/2022 Start: 09-16-2021 ADVANCE DIRECTIVE DISCUSSION ADVANCE DIRECTIVE DISCUSSION [facility] Start: 09-16-2021 DEPRESSION ASSESSMENT DEPRESSION ASS ESSMENT [facility] Start: 06-19-2020 Hepatitis B surface antibody level LDL CHOLESTEROL [facility] Start: 2007 PNEUMOVAX AGE 65 AND OVER WITH 5YR LOOKBACK (#1) PNEUMOVAX AGE 65 AND OVER WITH 5YR LOOKBACK (#1) [facility] Start: 2002 RSV Vaccine (1 - 1-d ose 60+ series) RSV Vaccine (1 - 1-dose 60+ series) [facility] Start: 02-20-1992 SHINGRIX VACCINE (1 of 2) ZAYAS GRIX VACCINE (1 of 2) [facility] Start: 1961 SHINGRIX VACCINE (1 of 2) ZAYAS GRIX VACCINE (1 of 2) [facility] Start: 02-20-1960 ANNUAL PCP TEAM NEUROPSYCHOLOGY MEDICAL CONSULTANT ANCA DISEASE VISIT ANNUAL PCP TEAM CHRONIC DISEASE VISIT [facility] Start: 1954 Adult depression scr eening assessment DEPRESSION SCREENING [facility] Start: 02-20-1952 3 comp foot exam completed DIABETIC FOOT EXAM [facility] Start: 02-20-1952 Diabetic foot examination Diabetic F oot Exam [facility] Start: 02-20-1952 Glaucoma screening Dilated Retinal E xam [facility] Start: 02-20-1952 Hepatitis B screening URINE ALBUMIN:CREATININE RATIO [facility] Start: 02-20-1952 Hepatitis C antibody , confirmatory test DILATED RETINAL EXAM [facility] Start: 02-20-1948 Pneumococcal Vaccine : 65+ (1 - PCV) Pneumococcal Vaccine: 65+ (1 - PCV) [facility] Start: 02-20-1948 PNEUMOCOCCAL: 65+ (1 - PCV) PNEUMOCOCCAL: 65+ (1 - PCV) [facility] Start: 1947 COVID-19 VACCINE (#1) COVID-19 VACCI NE (#1) [facility] Start: 1947 COVID-19 VACCINE (1) COVID-19 VACCIN E (1) [facility] Start: 1942 COVID-19 VACCINE (#1) COVID-19 VACCI NE (#1) [facility] End: 06-06-2023 ECG COMPLETE ECG COMPLETE ECG Routine Chronic systolic heart failure (HCC) 1 Occurrences starting 06/06/2022 until 06/06/2023 [facility] Work Phone: Comment on above: 1 Occurrences starti ng 06/06/2022 until 06/06/2023 End: 06-06-2023 Echocardiography ECHO Cardiology Routine Chronic systolic heart failure (HCC) 1 Occurrences starting 06/06/2022 until 06/06/2023 [facility] Work Phone: Comment on above: 1 Occurrences starti ng 06/06/2022 until 06/06/2023 End: 10-06-2023 NM PET/CT CARDIAC PERF REST/STRESS NM PET/CT CARDIAC PERF REST/STRESS Radiology Routine Chronic systolic heart failure (HCC) Coronary artery disease involving [place] coronary artery of [place] heart without angina pectoris 1 Occurrences starting 09/06/2022 until 10/06/2023 [facility] Work Phone: Comment on above: 1 Occurrences starti ng 09/06/2022 until 10/06/2023 End: 10-06-2023 NM PET/CT CARDIAC VIABILITY NM PET/CT CARDIAC VIABILITY Radiology Routine Chronic systolic heart failure (HCC) Coronary artery disease involving [place] coronary artery of [place] heart without angina pectoris 1 Occurrences starting 09/06/2022 until 10/06/2023 [facility] Work Phone: Comment on above: 1 Occurrences starti ng 09/06/2022 until 10/06/2023 End: 08-03-2023 US CAROTID ARTERIES [facility] US CAROTID ARTERIES [facility] Vascular Lab Routine Bilateral carotid artery stenosis 1 Occurrences starting 08/03/2022 until 08/03/2023 [facility] Work Phone: Comment on above: 1 Occurrences starti ng 08/03/2022 until 08/03/2023 [facility] Immunizations Immunization Date Immunization Notes Care Provider Renetta carcamo 06-13-2020 diphtheria, tetanus toxoids and pertussis vaccine ARACELI Kim MD Work Phone: [facility] Payers Date Payer Category Payer Unknown MMO MMO MEDICARE SUPPLEMENT [id number] 2018-Present [phone] [address] [place] [address] Indemnity [id number] 2018 Unknown MMO MMO MEDICARE SUPPLEMENT [id number] 2018-Present [phone] [address] [place] [address] Indemnity [id number] 2007 Medicare MEDICARE MEDICAR E A AND B [id number] 2007-Present [phone] [address] [address] [place] [address] Medicare [id number] 2007 Medicare MEDICARE MEDICAR E A AND B [id number] 2007-Present [phone] [place] [id number] Medicare [id number] 1959 Medicare [id number] 1959 Self-pay [id number] 1959 Unknown [id number] 1942 Unknown [id number] 1942 Unknown [id number] 1942 Unknown [id number] 1942 Unknown [id number] 1942 Unknown [id number] 1942 Unknown [id number] 1942 Unknown [id number] 1942 Unknown [id number] 1942 Unknown [id number] 1942 Unknown [id number] 1942 Unknown [id number] 1942 Unknown [id number] 1942 Unknown [id number] 1942 Unknown [id number] 1942 Unknown [id number] 1942 Unknown [id number] 1942 Unknown [id number] Social History Date Type Detail Facility Start: 04-28-2012 End: 04-26-2023 Tobacco smoking status NHIS Ex-smoker [facility] Work Phone: End: 04-28-1982 History of tobacco use Current smoker [facility] Work Phone: End: 04-28-1982 History of tobacco use Cigarette Smoker [facility] Work Phone: End: 04-28-1982 History of tobacco use Pipe Smoker [facility] Work Phone: Start: 04-28-2012 End: 04-02-2023 Cigarettes smoked current (pack per day) - Reported [address] [facility] Start: 04-28-2012 End: 04-26-2023 Tobacco use and exposure Smokeless tobacco non-user [facility] Work Phone: Start: 12-04-2021 End: 04-26-2023 Alcohol intake Current drinker of alcohol (finding) [facility] Start: 04-15-2020 History SDOH Alcohol Frequency [address] [facility] Start: 04-15-2020 History SDOH Alcohol Std Drinks [address] [facility] Start: 03-13-2019 History SDOH Alcohol Comment occassional [facility] Start: 1940 Sex Assigned At Male [facility] Start: 12-01-2021 End: 06-06-2022 Exposure to SARS-CoV-2 (event) Not sure [facility] Start: 10-25-2022 Alcohol Comment rarely [facility] Start: 04-15-2020 End: 04-02-2023 Alcohol Use Disorder Identification Test - Consumption [AUDIT-C] [facility] How often to you hav e a drink containing alcohol? Monthly or less [facility] How many standard dr inks containing alcohol do you have on a typical day? 1 or [address] [facility] Frequency of Binge Drinking Not on file [facility] Start: 02-22-2019 Gender identity Identifies as male gender (finding) [facility] Start: 02-22-2019 Sexual orientation Heterosexual (fin ding) [facility] NEGATED: Highlighted rowStart: NINF History of tobacco use Passive smoker [facility] Medical Equipment Procedure Code Equipment Code Equipment Origin al Text Equipment Identifier Dates [place] Cv 6x1in Thk1.65mm Ptfe - [id number] Start: 05-01-2012 Comment on above: Description: used fo r plrdgetts. Patch Cv 8x.8cm Tapr Vsgrd Bov - [id number] Start: 07-01-2012 Comment on above: Description: Right C arotid Clinical Notes 05-01-2012 to 08-27-2023 Telephone Encounter - Carina Sue - 08/27/2023 11:21 AM ESTTelephone Encounter - Brenden Pollard - 08/22/2023 12:48 PM Andreas Miller MD - 04/26/2023 7:01 AM EDTPatient Instructions Note Date & Type Note Facility 08-27-2023 Miscellaneous Notes Left a message with the patient regarding the cancellation of 10/22/2023 with . Informed the patient of the new scheduled appointment on 10/29/2023 with . documented in this encounter [facility] 08-22-2023 Miscellaneous Notes Call from pharmacy requesting refill. Requested Prescriptions Pending Prescriptions Disp Refills lisinopril (ZESTRIL) 5 mg tablet 90 tablet 3 Sig: Take 1 tablet by mouth once daily. Patient last seen 06-12-23 - Seen Alison Pollard documented in this encounter [facility] 06-12-2023 Note HNO ID: [id number] Author: Alison Weller APRN.CNP Service: ? Author Type: Nurse Practitioner Type: Progress Notes Filed: 06/12/2023 9:01 AM Note Text: Heart, Vascular AND Thoracic [facility] [place] Department of Cardiovascular Medicine VIRTUAL VIDEO VISIT ESTABLISHED OUTPATIENT VISIT SERVICE DATE: 06/12/2023 Patient: José Miguel Roth SERVICE TIME: 6:08 AM : 1940 This is a virtual video visit. It required patient-provider interaction for the medical decision making as documented below. José Miguel Hudsoncarter Sorto has consented to this video encounter. I have communicated my name and active licensure. The patient's identity and physical location were verified at the time of this visit. Either the patient or their legal major account representative has been informed of the risks and benefits of -- and alternatives to -- treatment through a remote evaluation and consents to proceed with the evaluation remotely. Unable to connect audio/phone call visit done CHIEF COMPLAINT Follow up HISTORY OF PRESENT ILLNESS José Miguel Roth Jr. is a 83 year old male CAD, h/o posterior STEMI c severe LAD disease, occluded Cx and RCA, s/p CABG (OTTO to LAD, SVG to PDA and SVG to OM), PAD s/p R CEA in 2011, CKD, hypertensin, hyperlipidemia, and chronic systolic heart failure who presents today for follow up visit. 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 ([facility]) 09/03/2022 Dyslipidemia GERD (gastroesophageal reflux disease) Heart failure, acute systolic ([facility]) Hypertension Hypothyroid Myocardial infarct, old Occlusion and stenosis of carotid artery without mention of cerebral infarction Prostate cancer ([facility]) 2020 PVD (peripheral vascular disease) ([facility]) 11/17/2012 Stroke (cerebrum) ([facility]) 09/03/2022 Systolic heart failure ([facility]) Thyroid disorder 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 kidney disease, unspecified CKD stage, unspecified whether custodial insulin use ([facility]) 04/26/2023 Ventricular tachycardia ([facility]) 04/28/2012 PAST SURGICAL HISTORY Procedure Laterality Date ANGIOGRAPHY, EXT CAROTID Right 2011 CABG (3) VEIN GRAFTS AND ARTERIAL GRAFT(S) 05/01/2012 Median sternotomy, coronary artery bypass grafting with in situ left internal thoracic artery to the LAD, and reverse saphenous vein graft to the posterior descending artery and obtuse marginal. HEART CATHETERIZATION FAMILY HISTORY Problem Relation Age of Onset other (atrial fibrillation) Mother other (CHF) Mother other (Other) Mother at age 96 Coronary Artery Disease Father Heart Attack Father fatal [place] at age 77 Ischemic Heart Disease Brother CABGx6 first at age 72 No Known Problems Maternal Grandmother No Known Problems Maternal Grandfather No Known Problems Paternal Grandmother No Known Problems Paternal Grandfather No Known Problems Daughter No Known Problems Daughter No Known Problems Daughter other (Other) Other paternal cousin at age 50 of [place] Social History Tobacco Use Smoking status: Former Packs/day: 1.00 Years: 10.00 Additional pack years: 0.00 Total pack years: 10.00 Types: Cigarettes, Pipe Quit date: 04/28/1982 Years since quittin.1 Passive exposure: Never Smokeless tobacco: Never Vaping Use Vaping Use: Never used Substance Use Topics Alcohol use: Yes Comment: rarely Drug use: Never ALLERGIES Allergen Reactions Latex Rash Adhesive Tape (Keyanna* Rash CURRENT MEDICATIONS Cholecalciferol, Vitamin D3, 25 mcg (1,000 unit) capTake 1,000 Units by mouth as needed.Disp: Rfl: nitroglycerin sublingual (NITROQUICK) 0.4 mg SL tabletas directed.Disp: Rfl: GRADUATE RESEARCH ASSISTANT THYROID 15 mg tabletas directed.Disp: Rfl: FARXIGA 10 mg tabletTake 1 tablet by mouth once daily.Disp: 90 tabletRfl: 3 therapeutic multivitamin w/ iron (THERAGRAN-M) 27-0.4 mg tabletTake 1 tablet by mouth once daily.Disp: Rfl: torsemide (DEMADEX) 10 mg tabletTake 1 tablet by mouth once daily.Disp: 90 tabletRfl: 3 lisinopril (ZESTRIL, PRINIVIL) 5 mg tabletTake 1 tablet by mouth once daily.Disp: 90 tabletRfl: 3 aspirin, enteric coated (ASPIRIN, ENTERIC COATED) 81 mg EC tabletTake 1 tablet by mouth once daily.Disp: Rfl: ezetimibe (ZETIA) 10 mg tabletTake 10 mg by mouth once daily.Disp: Rfl: metoprolol succinate ER (TOPROL XL) 25 mg 24 hr tabletTake 1 tablet by mouth once daily.Disp: 90 tabletRfl: 3 ubidecarenone Q-10 (COENZYME Q-10) 10 mg capTake 10 mg by mouth once daily.Disp: Rfl: thyroid, pork, 60 mg tabletTake 75 mg by mouth once daily.Disp: Rfl: atorvastatin (LIPITOR) 40 mg tabletTake 40 mg by mouth daily at bedtime.Disp: Rfl: 2 REVIEW OF SYSTEMS: Positive in Red GENERAL: Negative for: Weight loss or gain, Fever or Chills, Weakness and Sleep difficulties. HEENT: Negative for: Headache, Impaired Vision, (more content not included)... [facility] 04-26-2023 Note HNO ID: [id number] Author: Andreas Del Cid MD Service: ? Author Type: Physician Type: Progress Notes Filed: 04/27/2023 12:57 PM Note Text: Heart and Vascular [facility] [place] Jose Martin Silva Department of Cardiovascular Medicine SECTION OF CARDIOVASCULAR IMAGING OUTPATIENT VISIT DATE April 26, 2023 OUTPATIENT VISIT TYPE ESTABLISHED PRIMARY CARE PHYSICIAN: Francisca Thompson [address] [place] [address] REFERRING PHYSICIAN: Francisca Thompson [address] [facility] [address] CHIEF COMPLAINT: Follow up HISTORY OF PRESENT ILLNESS: Mr. Roth is a 83 year old male who presents today for follow-up visit. His history is notable for: 1. CAD, h/o posterior STEMI c severe LAD disease, occluded Cx and RCA, s/p OTTO to LAD, SVG to PDA and SVG to OM. Coronary angiogram with patent OTTO to LAD, patent SVG to OM, and occluded SVG to RCA. 2. PAD s/p R CEA in 2011. 3. CKD. 4. Chronic systolic heart failure Since his last visit, he states that he is doing better. He is starting to become more active. He had to discontinue low-dose spironolactone due to being lightheaded, and was previously hypotensive with sacubitril/valsartan. He does not want to pursue left carotid endarterectomy at this time due to the fact that he is high risk. He denies chest pain, shortness of breath, orthopnea, cough, edema, palpitations, PND, lightheadedness or syncope. 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 ([facility]) 09/03/2022 Dyslipidemia GERD (gastroesophageal reflux disease) Heart failure, acute systolic ([facility]) Hypertension Hypothyroid Myocardial infarct, old Occlusion and stenosis of carotid artery without mention of cerebral infarction Prostate cancer ([facility]) 2020 PVD (peripheral vascular disease) ([facility]) 11/17/2012 Stroke (cerebrum) ([facility]) 09/03/2022 Systolic heart failure ([facility]) Thyroid disorder 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 kidney disease, unspecified CKD stage, unspecified whether intermodal customer service insulin use ([facility]) 04/26/2023 Ventricular tachycardia ([facility]) 04/28/2012 PAST SURGICAL HISTORY Procedure Laterality Date ANGIOGRAPHY, EXT CAROTID Right 2012 CABG (3) VEIN GRAFTS AND ARTERIAL GRAFT(S) 05/01/2012 Median sternotomy, coronary artery bypass grafting with in situ left internal thoracic artery to the LAD, and reverse saphenous vein graft to the posterior descending artery and obtuse marginal. HEART CATHETERIZATION SOCIAL HISTORY Social History Tobacco Use Smoking status: Former Packs/day: 1.00 Years: 10.00 Total pack years: 10.00 Types: Cigarettes, Pipe Quit date: 04/28/1982 Years since quittin.0 Smokeless tobacco: Never Vaping Use Vaping Use: Never used Substance Use Topics Alcohol use: Yes Comment: rarely Drug use: No FAMILY HISTORY Problem Relation Age of Onset Coronary Artery Disease Father Heart Attack Father fatal [place] at age 77 other (atrial fibrillation) Mother other (CHF) Mother other (Other) Mother at age 96 Ischemic Heart Disease Brother CABGx6 first at age 72 No Known Problems Daughter No Known Problems Daughter No Known Problems Daughter other (Other) Other paternal cousin at age 50 of [place] ALLERGIES: ALLERGIES Allergen Reactions Latex Rash Adhesive Tape (Keyanna* Rash MEDICATIONS: FARXIGA 10 mg tabletTake 1 tablet by mouth once daily.Disp: 90 tabletRfl: 3 therapeutic multivitamin w/ iron (THERAGRAN-M) 27-0.4 mg tabletTake 1 tablet by mouth once daily.Disp: Rfl: torsemide (DEMADEX) 10 mg tabletTake 1 tablet by mouth once daily.Disp: 90 tabletRfl: 3 lisinopril (ZESTRIL, PRINIVIL) 5 mg tabletTake 1 tablet by mouth once daily.Disp: 90 tabletRfl: 3 aspirin, enteric coated (ASPIRIN, ENTERIC COATED) 81 mg EC tabletTake 1 tablet by mouth once daily.Disp: Rfl: spironolactone (ALDACTONE) 25 mg tabletTake 12.5 mg by mouth once daily.Disp: Rfl: ezetimibe (ZETIA) 10 mg tabletTake 10 mg by mouth once daily.Disp: Rfl: metoprolol succinate ER (TOPROL XL) 25 mg 24 hr tabletTake 1 tablet by mouth once daily.Disp: 90 tabletRfl: 3 ubidecarenone Q-10 (COENZYME Q-10) 10 mg capTake 10 mg by mouth once daily.Disp: Rfl: thyroid, pork, 60 mg tabletTake 75 mg by mouth once daily.Disp: Rfl: atorvastatin (LIPITOR) 40 mg tabletTake 40 mg by mouth daily at bedtime.Disp: Rfl: 2 REVIEW OF SYSTEMS: GENERAL: Negative for: Weight loss or gain, Fever or Chills, Weakness and Sleep difficulties. HEENT: Negative for: Headache, Impaired Vision, Glasses, Hearing Impairment, Ringing in Ears, Nosebleeds, Poor dental care, Bleeding Gums, Dentures NECK: Negative for: Swelling, Pain, Stiffness RESPIRATORY: Negative for: Cough, Blood in Sputum, Shortness of breath, Wheezing, (more content not included)... [facility] 04-26-2023 History of Present illness Narrative Images from the original note were not included. Heart and Vascular [place] Jose Martin Silva Department of Cardiovascular Medicine SECTION OF CARDIOVASCULAR IMAGING OUTPATIENT VISIT DATE April 26, 2023 OUTPATIENT VISIT TYPE ESTABLISHED PRIMARY CARE PHYSICIAN: Francisca Thompson [address] [place] [address] REFERRING PHYSICIAN: Francisca Thompson [address] [facility] [phone] CHIEF COMPLAINT: Follow up HISTORY OF PRESENT ILLNESS: Mr. Roth is a 83 year old male who presents today for follow-up visit. His history is notable for: 1. CAD, h/o posterior STEMI c severe LAD disease, occluded Cx and RCA, s/p OTTO to LAD, SVG to PDA and SVG to OM. Coronary angiogram with patent OTTO to LAD, patent SVG to OM, and occluded SVG to RCA. 2. PAD s/p R CEA in 2011. 3. CKD. 4. Chronic systolic heart failure Since his last visit, he states that he is doing better. He is starting to become more active. He had to discontinue low-dose spironolactone due to being lightheaded, and was previously hypotensive with sacubitril/valsartan. He does not want to pursue left carotid endarterectomy at this time due to the fact that he is high risk. He denies chest pain, shortness of breath, orthopnea, cough, edema, palpitations, PND, lightheadedness or syncope. 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) 09/03/2022 Dyslipidemia GERD (gastroesophageal reflux disease) Heart failure, acute systolic ([facility]) Hypertension Hypothyroid Myocardial infarct, old Occlusion and stenosis of carotid artery without mention of cerebral infarction Prostate cancer ([facility]) 2020 PVD (peripheral vascular disease) ([facility]) 11/17/2012 Stroke (cerebrum) ([facility]) 09/03/2022 Systolic heart failure ([facility]) Thyroid disorder 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 kidney disease, unspecified CKD stage, unspecified whether custodial insulin use ([facility]) 04/26/2023 Ventricular tachycardia ([facility]) 04/28/2012 PAST SURGICAL HISTORY Procedure Laterality Date ANGIOGRAPHY, EXT CAROTID Right 2012 CABG (3) VEIN GRAFTS & ARTERIAL GRAFT(S) 05/01/2012 Median sternotomy, coronary artery bypass grafting with in situ left internal thoracic artery to the LAD, and reverse saphenous vein graft to the posterior descending artery and obtuse marginal. HEART CATHETERIZATION SOCIAL HISTORY Social History Tobacco Use Smoking status: Former Packs/day: 1.00 Years: 10.00 Total pack years: 10.00 Types: Cigarettes, Pipe Quit date: 04/28/1982 Years since quittin.0 Smokeless tobacco: Never Vaping Use Vaping Use: Never used Substance Use Topics Alcohol use: Yes Comment: rarely Drug use: No FAMILY HISTORY Problem Relation Age of Onset Coronary Artery Disease Father Heart Attack Father fatal [place] at age 77 other (atrial fibrillation) Mother other (CHF) Mother other (Other) Mother at age 96 Ischemic Heart Disease Brother CABGx6 first at age 72 No Known Problems Daughter No Known Problems Daughter No Known Problems Daughter other (Other) Other paternal cousin at age 50 of [place] ALLERGIES: ALLERGIES Allergen Reactions Latex Rash Adhesive Tape (Keyanna* Rash MEDICATIONS: FARXIGA 10 mg tablet^Take 1 tablet by mouth once daily.^Disp: 90 tablet^Rfl: 3 therapeutic multivitamin w/ iron (THERAGRAN-M) 27-0.4 mg tablet^Take 1 tablet by mouth once daily.^Disp: ^Rfl: torsemide (DEMADEX) 10 mg tablet^Take 1 tablet by mouth once daily.^Disp: 90 tablet^Rfl: 3 lisinopril (ZESTRIL, PRINIVIL) 5 mg tablet^Take 1 tablet by mouth once daily.^Disp: 90 tablet^Rfl: 3 aspirin, enteric coated (ASPIRIN, ENTERIC COATED) 81 mg EC tablet^Take 1 tablet by mouth once daily.^Disp: ^Rfl: spironolactone (ALDACTONE) 25 mg tablet^Take 12.5 mg by mouth once daily.^Disp: ^Rfl: ezetimibe (ZETIA) 10 mg tablet^Take 10 mg by mouth once daily.^Disp: ^Rfl: metoprolol succinate ER (TOPROL XL) 25 mg 24 hr tablet^Take 1 tablet by mouth once daily.^Disp: 90 tablet^Rfl: 3 ubidecarenone Q-10 (COENZYME Q-10) 10 mg cap^Take 10 mg by mouth once daily.^Disp: ^Rfl: thyroid, pork, 60 mg tablet^Take 75 mg by mouth once daily.^Disp: ^Rfl: atorvastatin (LIPITOR) 40 mg tablet^Take 40 mg by mouth daily at bedtime.^Disp: ^Rfl: 2 REVIEW OF SYSTEMS: GENERAL: Negative for: Weight loss or gain, Fever or Chills, Weakness and Sleep difficulties. HEENT: Negative for: Headache, Impaired Vision, Glasses, Hearing Impairment, Ringing in Ears, Nosebleeds, Poor dental care, Bleeding Gums, Dentures NECK: Negative for: Swelling, Pain, Stiffness RESPIRATORY: Negative for: Cough, Blood in Sputum, Shortness of breath, Wheezing, Apnea GASTROINTESTINAL: Negative for: Trouble swallowing, Heartburn, Change in bowel habits, Blood in stool, Dark black stools MUSCULOSKELETAL: Negative for: Muscle or joint pain, Stiffness , Joint swelling NEUROLOGIC/PSYCHIATRIC: Negative for: Weakness, Paralysis, Numbness, Tingling, Tremor, Nervousness, Depressed mood, Memory loss SKIN: Negative for: Rashes, Itching HEMATOLOGICAL/LYMPHATIC: Negative for: Easy bruising , Easy bleeding ENDOCRINE: Negative for: Heat or cold intolerance, Excessive sweating, Frequent urination, Frequent thirst PHYSICAL EXAMINATION: BP 116/62 Pulse 73 Resp 12 Ht 182.9 cm (6') Wt 83.9 kg (185 lb) SpO2 98% BMI 25.09 kg/m General: Well appearing, in no acute distress. Skin: No clubbing, no cyanosis. Eyes: Extra ocular movements intact Oropharynx: Teeth in good repair. Neck: No jugular venous distention, no carotid bruits, carotids have a normal upstroke, no palpable thyromegaly. Lungs: Clear to auscultation bilaterally, no wheezing or rhonchi. Heart: Regular rhythm, PMI not displaced, S1, S2 normal, no S3, no S4, no heaves, no rub and 2 to 3 x 6 holosystolic murmur at the apex. Abdomen: Soft, nontender, bowel sounds normal, no palpable organomegaly, no bruits. Extremities: No peripheral edema . Grade 2/4 distal pulses bilaterally. Neuro: Oriented to person, place and time, alert, cooperative, gait coordinated. CARDIOVASCULAR MEDICINE TESTING: I have personally reviewed the Electrocardiogram and Echocardiogram. Last ECHO Result Conclusion ECHO Collected: 06/06/2022 12:30 PM (Final result) Impression: CONCLUSIONS: - Exam indication: CHF - The left ventricle is severely dilated. Left ventricular systolic function is severely decreased. EF = 20 5% (2D biplane) Left ventricular diastolic function was not evaluated due to >2+ MR. - The right ventricle is normal in size. Right ventricular systolic function is low normal. - The left atrial cavity is mildly dilated. - The right atrial cavity is dilated. - The visualized aorta is dilated with a maximal dimension of 4.1 cm. - There is moderately severe (3+) holosystolic mitral valve regurgitation due to apical tethering of normal mitral leaflet caused by LV enlargement likely related to ischemic heart disease. - Exam was compared with the prior echocardiographic exam performed on 04/15/2020. Mild decrease in EF and worsening MR compared to prior study. * * * Final * * * Last EKG Result Conclusion ECG COMPLETE Collected: 06/06/2022 1:33 PM (Final result) Impression: NORMAL SINUS RHYTHM WITH SINUS ARRHYTHMIA NONSPECIFIC INTRAVENTRICULAR BLOCK MINIMAL VOLTAGE CRITERIA FOR LVH, MAY BE NORMAL VARIANT ( Robert product ) NONSPECIFIC T WAVE ABNORMALITY ABNORMAL ECG Confirmed by MD VIET, HEBA ([id number]) on 06/26/2022 4:47:04 PM IMPRESSION AND PLAN: Mr. Roth is a 83 year old male c a h/o CAD, myocardial infarction, and prior CABG and ischemic MR. His recent stress PET showed stress PET shows an EF in the 20s% and there is some scar and hibernating myocardium, but no significant ischemia. His most recent cath shows an occluded LAD compared to the study from 2019. His OTTO is patent as is an SVG to the LCx. The RCA is occluded. His left ventricle is also quite dilated, and the mainstay of treatment going forward will be medical therapy. He is currently doing reasonably well on low-dose MARGARETTE inhibitor, beta-jasbir, and SGLT2 inhibitor, as well as low-dose torsemide. As previously noted, he has not tolerated sacubitril/valsartan or spironolactone. He was previously in phase 2 cardiac rehabilitation, but this was stopped when he had a minor stroke, and I think it would be good for him to reinitiate this. Follow-up in 6 months. CONTACT INFORMATION: Andreas Del Cid MD 12:56 PM April 27, 2023 documented in this encounter [facility] 04-02-2023 Note HNO ID: [id number] Author: Yung Kim MD Service: ? Author Type: Physician Type: Progress Notes Filed: 04/05/2023 9:52 AM Note Text: Radiation Oncology - Follow Up Note PATIENT NAME: José Miguel Roth Jr. PATIENT DIAGNOSIS: Trying to get him a note from overview couple days rather do the PET scan for less a significantly Met second prostate adenocarcinoma, initial PSA 8, biopsy Thayer score 3 + 4 = 7 (grade group 2), clinical stage T1c, N0, M0, stage IIB [T1-T2, N0, M0, PSA <20, GG 2] (AJCC 8th ed.), s/p TRUS Random biopsy, Patient elected observation and was found to have progression, PSA 08/2021 36.2. and repeat biopsy showing Ivory 7 (3+4) adenocarcinoma. RADIATION SUMMARY: DATES OF TREATMENT: 10/23/2021 to 12/19/2019 AREA TREATED: Pelvis Prostate DELIVERED DOSE: Area: Pelvis Prostate 4,600 cGy in 23 fractions, 3 Maxwell, IMRT, 10MV with daily CBCT Area: Pelvis Prostate Boost 3,200 cGy in 16 fractions, 2 Maxwell, IMRT, 10MV with daily CBCT TOTAL: 7,800 cGy in 39 Fractions ELAPSED TIME: 56 days. INTERVAL HISTORY: The patient presents for routine follow-up. Doing fairly well. Denies any bladder or bowel changes. Appetite stable. Helping his brother who recently had to be admitted to care home due to feels safe. PSA HISTORY: PSA (ng/mL) Date Value 03/26/2023 <0.02 04/19/2022 <0.02 01/15/2022 <0.02 11/09/2021 0.16 09/05/2021 36.20 PSA. (no units) Date Value 09/12/2022 <0.13 10/21/2018 12.30 ALLERGIES Allergen Reactions Latex Rash Adhesive Tape (Keyanna* Rash FARXIGA 10 mg tabletTake 1 tablet by mouth once daily.Disp: 90 tabletRfl: 3 therapeutic multivitamin w/ iron (THERAGRAN-M) 27-0.4 mg tabletTake 1 tablet by mouth once daily.Disp: Rfl: torsemide (DEMADEX) 10 mg tabletTake 1 tablet by mouth once daily.Disp: 90 tabletRfl: 3 lisinopril (ZESTRIL, PRINIVIL) 5 mg tabletTake 1 tablet by mouth once daily.Disp: 90 tabletRfl: 3 aspirin, enteric coated (ASPIRIN, ENTERIC COATED) 81 mg EC tabletTake 1 tablet by mouth once daily.Disp: Rfl: ezetimibe (ZETIA) 10 mg tabletTake 10 mg by mouth once daily.Disp: Rfl: metoprolol succinate ER (TOPROL XL) 25 mg 24 hr tabletTake 1 tablet by mouth once daily.Disp: 90 tabletRfl: 3 ubidecarenone Q-10 (COENZYME Q-10) 10 mg capTake 10 mg by mouth once daily.Disp: Rfl: thyroid, pork, 60 mg tabletTake 75 mg by mouth once daily.Disp: Rfl: atorvastatin (LIPITOR) 40 mg tabletTake 40 mg by mouth daily at bedtime.Disp: Rfl: 2 spironolactone (ALDACTONE) 25 mg tabletTake 12.5 mg by mouth once daily.Disp: Rfl: REVIEW OF SYSTEMS: D/N = 4-5/1-2 Hematuria: none Dysuria: none Incontinence: none Urgency: mild Catheter use: none Medications to aid urination: no - Total AUA Score: 1 Bowel movement frequency: 1/day Bowel movement quality: normal Blood per rectum: none Last colonoscopy: na Androgen deprivation: Lupron/Casodex has stopped PHYSICAL EXAM: BP 131/89 Pulse 64 Temp (!) 35.9 ?C (96.6 ?F) Resp 16 Wt 86.2 kg (190 lb) SpO2 96% BMI 25.77 kg/m? KPS: 100 General Appearance: Alert and oriented. No acute distress. Neck supraclavicular and axillary area without lymphadenopathy rectal exam is deferred. ASSESSMENT/PLAN: Prostate adenocarcinoma, initial PSA 8, biopsy Ivory score 3 + 4 = 7 (grade group 2), clinical stage T1c, N0, M0, stage IIB [T1-T2, N0, M0, PSA <20, GG 2] (AJCC 8th ed.), s/p TRUS Random biopsy, PSA remains undetectable. No significant posttreatment problems. Recommend repeat PSA in 6 months. Signed by: Yung Kim MD cc: Francisca Thompson MD [address] [place] [address] [facility] 11-29-2022 Note HNO ID: [id number] Author: John Jefferson MD Service: Vascular Surgery Author Type: Physician Type: Progress Notes Filed: 11/30/2022 9:34 AM Note Text: NAME: JOSÉ MIGUEL [facility]OTH [facility] NO: [id number] DATE OF SERVICE: 11/29/2022 DATE OF : 1940 He let us know he has changed his mind about proceeding with his carotid surgery. We will wait to see what he says about moving ahead and when he wants to reschedule. John Jefferson M.D. SPL/089 Audio #: [id number] Date Dictated: 11/29/2022 14:25:32 Date Typed: 11/30/2022 09:05:53 Date Revised: [facility] 11-29-2022 Miscellaneous Notes Mr. Roth decided not to move forward with surgery at this time and would like to cancel. Darlene Rajput Industrial Renderer documented in this encounter [facility] 11-29-2022 History of Present illness Narrative NAME: JOSÉ MIGUEL ROTH JR. [facility] NO: [id number] DATE OF SERVICE: 11/29/2022 DATE OF : 1940 He let us know he has changed his mind about proceeding with his carotid surgery. We will wait to see what he says about moving ahead and when he wants to reschedule. John Jefferson M.D. SPL/089 Audio #: [id number] Date Dictated: 11/29/2022 14:25:32 Date Typed: 11/30/2022 09:05:53 Date Revised: documented in this encounter [facility] 10-31-2022 Miscellaneous Notes Called patient José Miguel to clarify surgery date and advise pre scheduled date requested, asked if I could look up his brothers surgery information, advised I could not my apologizes,to also check as he has EKG/Echo scheduled with Cardiac scheduled day after surgery ..Tiffany Clifton documented in this encounter [facility] 10-26-2022 Note HNO ID: [id number] Author: Andreas Del Cid MD Service: ? Author Type: Physician Type: Progress Notes Filed: 11/02/2022 10:08 AM Note Text: [facility] [place] Jose Martin Silva Department of Cardiovascular Medicine SECTION OF CARDIOVASCULAR IMAGING OUTPATIENT VISIT DATE October 26, 2022 OUTPATIENT VISIT TYPE ESTABLISHED PRIMARY CARE PHYSICIAN: Francisca Thompson MD [address] [place] [id number] REFERRING PHYSICIAN: Andreas Del Cid [facility]0 [facility] [address] CHIEF COMPLAINT: Follow up HISTORY OF PRESENT ILLNESS: Mr. Roth is a 82 year old male who presents today for follow-up visit. His history is notable for: 1. CAD, h/o posterior STEMI c severe LAD disease, occluded Cx and RCA, s/p OTTO to LAD, SVG to PDA and SVG to OM. Coronary angiogram with patent OTTO to LAD, patent SVG to OM, and occluded SVG to RCA. 2. PAD s/p R CEA in 2011. 3. CKD. 4. Chronic systolic heart failure Since his last visit, he states that he is doing OK. He is active around the house without symptoms but is not exercising much as he is helping with his brother who has Alzheimer dementia. He denies chest pain, shortness of breath, orthopnea, cough, edema, palpitations, PND, lightheadedness or syncope. 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 ([facility]) 09/03/2022 Dyslipidemia GERD (gastroesophageal reflux disease) Heart failure, acute systolic ([facility]) Hypertension Hypothyroid Myocardial infarct, old Occlusion and stenosis of carotid artery without mention of cerebral infarction Prostate cancer ([facility]) 2020 PVD (peripheral vascular disease) ([facility]) 11/17/2012 Stroke (cerebrum) ([facility]) 09/03/2022 Systolic heart failure ([facility]) Thyroid disorder Ventricular tachycardia 04/28/2012 PAST SURGICAL HISTORY Procedure Laterality Date ANGIOGRAPHY, EXT CAROTID Right 2011 CABG (3) VEIN GRAFTS AND ARTERIAL GRAFT(S) 05/01/2012 Median sternotomy, coronary artery bypass grafting with in situ left internal thoracic artery to the LAD, and reverse saphenous vein graft to the posterior descending artery and obtuse marginal. HEART CATHETERIZATION SOCIAL HISTORY Social History Tobacco Use Smoking status: Former Packs/day: 1.00 Years: 10.00 Pack years: 10.00 Types: Cigarettes, Pipe Quit date: 04/28/1982 Years since quittin.5 Smokeless tobacco: Never Vaping Use Vaping Use: Never used Substance Use Topics Alcohol use: Yes Comment: rarely Drug use: No FAMILY HISTORY Problem Relation Age of Onset Coronary Artery Disease Father Heart Attack Father fatal [place] at age 77 other (atrial fibrillation) Mother other (CHF) Mother other (Other) Mother at age 96 Ischemic Heart Disease Brother CABGx6 first at age 72 No Known Problems Daughter No Known Problems Daughter No Known Problems Daughter other (Other) Other paternal cousin at age 50 of [place] ALLERGIES: ALLERGIES Allergen Reactions Latex Rash Adhesive Tape (Keyanna* Rash MEDICATIONS: therapeutic multivitamin w/ iron (THERAGRAN-M) 27-0.4 mg tabletTake 1 tablet by mouth once daily.Disp: Rfl: torsemide (DEMADEX) 10 mg tabletTake 1 tablet by mouth once daily.Disp: 90 tabletRfl: 3 lisinopril (ZESTRIL, PRINIVIL) 5 mg tabletTake 1 tablet by mouth once daily.Disp: 90 tabletRfl: 3 aspirin, enteric coated (ASPIRIN, ENTERIC COATED) 81 mg EC tabletTake 1 tablet by mouth once daily.Disp: Rfl: FARXIGA 10 mg tabletTake 10 mg by mouth once daily.Disp: Rfl: spironolactone (ALDACTONE) 25 mg tabletTake 12.5 mg by mouth once daily.Disp: Rfl: ezetimibe (ZETIA) 10 mg tabletTake 10 mg by mouth once daily.Disp: Rfl: metoprolol succinate ER (TOPROL XL) 25 mg 24 hr tabletTake 1 tablet by mouth once daily.Disp: 90 tabletRfl: 3 ubidecarenone Q-10 (COENZYME Q-10) 10 mg capTake 10 mg by mouth once daily.Disp: Rfl: thyroid, pork, 60 mg tabletTake 75 mg by mouth once daily.Disp: Rfl: atorvastatin (LIPITOR) 40 mg tabletTake 40 mg by mouth daily at bedtime.Disp: Rfl: 2 REVIEW OF SYSTEMS: GENERAL: Negative for: Weight loss or gain, Fever or Chills, Weakness and Sleep difficulties. HEENT: Negative for: Headache, Impaired Vision, Glasses, Hearing Impairment, Ringing in Ears, Nosebleeds, Poor dental care, Bleeding Gums, Dentures NECK: Negative for: Swelling, Pain, Stiffness RESPIRATORY: Negative for: Cough, Blood in Sputum, Shortness of breath, Wheezing, Apnea GASTROINTESTINAL: Negative for: Trouble swallowing, Heartburn, Change in bowel habits, Blood in stool, Dark black stools MUSCULOSKELETAL: Negative for: Muscle or joint pain, Stiffness , Joint swelling NEUROLOGIC/PSYCHIATRIC: Negative for: Weakness, Paralysis, Numbness, Tingling, Tremor, Nervousness, Depressed mood, Memor (more content not included)... [facility] 10-26-2022 History of Present illness Narrative Images from the original note were not included. [facility] [place] Jose Martin Silva Department of Cardiovascular Medicine SECTION OF CARDIOVASCULAR IMAGING OUTPATIENT VISIT DATE October 26, 2022 OUTPATIENT VISIT TYPE ESTABLISHED PRIMARY CARE PHYSICIAN: Francisca Thompson MD [address] [place] [address] REFERRING PHYSICIAN: Andreas Del Cid [address] [facility] [address] CHIEF COMPLAINT: Follow up HISTORY OF PRESENT ILLNESS: Mr. Roth is a 82 year old male who presents today for follow-up visit. His history is notable for: 1. CAD, h/o posterior STEMI c severe LAD disease, occluded Cx and RCA, s/p OTTO to LAD, SVG to PDA and SVG to OM. Coronary angiogram with patent OTTO to LAD, patent SVG to OM, and occluded SVG to RCA. 2. PAD s/p R CEA in 2011. 3. CKD. 4. Chronic systolic heart failure Since his last visit, he states that he is doing OK. He is active around the house without symptoms but is not exercising much as he is helping with his brother who has Alzheimer dementia. He denies chest pain, shortness of breath, orthopnea, cough, edema, palpitations, PND, lightheadedness or syncope. 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 ([facility]) 09/03/2022 Dyslipidemia GERD (gastroesophageal reflux disease) Heart failure, acute systolic ([facility]) Hypertension Hypothyroid Myocardial infarct, old Occlusion and stenosis of carotid artery without mention of cerebral infarction Prostate cancer ([facility]) 2020 PVD (peripheral vascular disease) ([facility]) 11/17/2012 Stroke (cerebrum) ([facility]) 09/03/2022 Systolic heart failure ([facility]) Thyroid disorder Ventricular tachycardia 04/28/2012 PAST SURGICAL HISTORY Procedure Laterality Date ANGIOGRAPHY, EXT CAROTID Right 2011 CABG (3) VEIN GRAFTS & ARTERIAL GRAFT(S) 05/01/2012 Median sternotomy, coronary artery bypass grafting with in situ left internal thoracic artery to the LAD, and reverse saphenous vein graft to the posterior descending artery and obtuse marginal. HEART CATHETERIZATION SOCIAL HISTORY Social History Tobacco Use Smoking status: Former Packs/day: 1.00 Years: 10.00 Pack years: 10.00 Types: Cigarettes, Pipe Quit date: 04/28/1982 Years since quittin.5 Smokeless tobacco: Never Vaping Use Vaping Use: Never used Substance Use Topics Alcohol use: Yes Comment: rarely Drug use: No FAMILY HISTORY Problem Relation Age of Onset Coronary Artery Disease Father Heart Attack Father fatal [place] at age 77 other (atrial fibrillation) Mother other (CHF) Mother other (Other) Mother at age 96 Ischemic Heart Disease Brother CABGx6 first at age 72 No Known Problems Daughter No Known Problems Daughter No Known Problems Daughter other (Other) Other paternal cousin at age 50 of [place] ALLERGIES: ALLERGIES Allergen Reactions Latex Rash Adhesive Tape (Keyanna* Rash MEDICATIONS: therapeutic multivitamin w/ iron (THERAGRAN-M) 27-0.4 mg tablet^Take 1 tablet by mouth once daily.^Disp: ^Rfl: torsemide (DEMADEX) 10 mg tablet^Take 1 tablet by mouth once daily.^Disp: 90 tablet^Rfl: 3 lisinopril (ZESTRIL, PRINIVIL) 5 mg tablet^Take 1 tablet by mouth once daily.^Disp: 90 tablet^Rfl: 3 aspirin, enteric coated (ASPIRIN, ENTERIC COATED) 81 mg EC tablet^Take 1 tablet by mouth once daily.^Disp: ^Rfl: FARXIGA 10 mg tablet^Take 10 mg by mouth once daily.^Disp: ^Rfl: spironolactone (ALDACTONE) 25 mg tablet^Take 12.5 mg by mouth once daily.^Disp: ^Rfl: ezetimibe (ZETIA) 10 mg tablet^Take 10 mg by mouth once daily.^Disp: ^Rfl: metoprolol succinate ER (TOPROL XL) 25 mg 24 hr tablet^Take 1 tablet by mouth once daily.^Disp: 90 tablet^Rfl: 3 ubidecarenone Q-10 (COENZYME Q-10) 10 mg cap^Take 10 mg by mouth once daily.^Disp: ^Rfl: thyroid, pork, 60 mg tablet^Take 75 mg by mouth once daily.^Disp: ^Rfl: atorvastatin (LIPITOR) 40 mg tablet^Take 40 mg by mouth daily at bedtime.^Disp: ^Rfl: 2 REVIEW OF SYSTEMS: GENERAL: Negative for: Weight loss or gain, Fever or Chills, Weakness and Sleep difficulties. HEENT: Negative for: Headache, Impaired Vision, Glasses, Hearing Impairment, Ringing in Ears, Nosebleeds, Poor dental care, Bleeding Gums, Dentures NECK: Negative for: Swelling, Pain, Stiffness RESPIRATORY: Negative for: Cough, Blood in Sputum, Shortness of breath, Wheezing, Apnea GASTROINTESTINAL: Negative for: Trouble swallowing, Heartburn, Change in bowel habits, Blood in stool, Dark black stools MUSCULOSKELETAL: Negative for: Muscle or joint pain, Stiffness , Joint swelling NEUROLOGIC/PSYCHIATRIC: Negative for: Weakness, Paralysis, Numbness, Tingling, Tremor, Nervousness, Depressed mood, Memory loss SKIN: Negative for: Rashes, Itching HEMATOLOGICAL/LYMPHATIC: Negative for: Easy bruising , Easy bleeding ENDOCRINE: Negative for: Heat or cold intolerance, Excessive sweating, Frequent urination, Frequent thirst PHYSICAL EXAMINATION: BP 116/66 Pulse 74 Ht 182.9 cm (6') Wt 83.9 kg (185 lb) SpO2 98% BMI 25.09 kg/m General: Well appearing, in no acute distress. Skin: No clubbing, no cyanosis. Eyes: Extra ocular movements intact Oropharynx: Teeth in good repair. Neck: No jugular venous distention, no carotid bruits, carotids have a normal upstroke, no palpable thyromegaly. Lungs: Clear to auscultation bilaterally, no wheezing or rhonchi. Heart: Regular rhythm, PMI not displaced, S1, S2 normal, no S3, no S4, no heaves, no rub and ii/vi apical systolic murmur. Abdomen: Soft, nontender, bowel sounds normal, no palpable organomegaly, no bruits. Extremities: No peripheral edema . Grade 2/4 distal pulses bilaterally. Neuro: Oriented to person, place and time, alert, cooperative, gait coordinated. CARDIOVASCULAR MEDICINE TESTING: I have personally reviewed the Electrocardiogram, Echocardiogram, and Cardiac PET. Last ECHO Result Conclusion ECHO Collected: 06/06/2022 12:30 PM (Final result) Impression: CONCLUSIONS: - Exam indication: CHF - The left ventricle is severely dilated. Left ventricular systolic function is severely decreased. EF = 20 5% (2D biplane) Left ventricular diastolic function was not evaluated due to >2+ MR. - The right ventricle is normal in size. Right ventricular systolic function is low normal. - The left atrial cavity is mildly dilated. - The right atrial cavity is dilated. - The visualized aorta is dilated with a maximal dimension of 4.1 cm. - There is moderately severe (3+) holosystolic mitral valve regurgitation due to apical tethering of normal mitral leaflet caused by LV enlargement likely related to ischemic heart disease. - Exam was compared with the prior echocardiographic exam performed on 04/15/2020. Mild decrease in EF and worsening MR compared to prior study. * * * Final * * * Last EKG Result Conclusion ECG COMPLETE Collected: 06/06/2022 1:33 PM (Final result) Impression: NORMAL SINUS RHYTHM WITH SINUS ARRHYTHMIA NONSPECIFIC INTRAVENTRICULAR BLOCK MINIMAL VOLTAGE CRITERIA FOR LVH, MAY BE NORMAL VARIANT ( Henderson product ) NONSPECIFIC T WAVE ABNORMALITY ABNORMAL ECG Confirmed by MD VIET, [facility] ([id number]) on 06/26/2022 4:47:04 PM IMPRESSION AND PLAN: Mr. Roth is a 82 year old male c a h/o CAD and prior CABG and MR who presents for F/U and cornelia-operative risk stratification prior to carotid surgery. He has a good functional status - reasonably active around the house with no symptoms and is euvolemic on exam. The stress PET shows an EF in the 20s% and there is some scar and hibernating myocardium, but no significant ischemia. His most recent cath shows an occluded LAD compared to the study from 2019. His OTTO is patent as is an SVG to the LCx. The RCA is occluded. He is an increased, but not prohibitive risk patient. I would put his risk of a cornelia-operative cardiac event at 1-5%. My main concern with these patients who depend on the OTTO graft for coronary perfusion is that they can have a big myocardial infarction with systemic hypotension in the OR. I have instructed him not to take his lisinopril the day before and the day of surgery. He should continue his other medications. He will follow-up in 6 months with an echocardiogram. CONTACT INFORMATION: Andreas Del Cid MD 10:07 AM November 02, 2022 documented in this encounter [facility] 10-25-2022 Instructions Andreas Del Cid MD - 10/25/2022 4:11 PM EST OK for surgery. Do not take your lisinopril the day before and the day of surgery. Continue your other medications. Check blood work today. Return in 6 months with an echocardiogram. documented in this encounter [facility] 10-25-2022 Note HNO ID: [id number] Author: Luigi Desai, Nuclear Tech Service: Nuclear Medicine Author Type: Butcher Or Smallgoods Maker Type: Progress Notes Filed: 10/25/2022 2:20 PM Note Text: RADIOLOGY SERVICE PROGRESS NOTE SERVICE DATE: 10/25/2022 SERVICE TIME: 1:32 PM PATIENT IDENTITY VERIFICATION COMPLETED USING TWO (2) STANDARD IDENTIFIERS: Name and Date of confirmed by patient verbally FALL SCREENING: Has the patient had 2 falls in the last year or 1 fall with injury or currently using an Ambulatory Assistive Device (Walker, Cane, Wheelchair, Crutches, etc.)? No PATIENT GENDER DATA: .male ALLERGIES: Reviewed and updated MEDICATIONS REVIEWED: No PATIENT RELEVANT IMPLANT DATA REVIEWED: Not Applicable CREATININE: Creatinine Date Value Ref Range Status 06/06/2022 1.68 (H) 0.73 - 1.22 mg/dL Final 04/19/2022 1.47 (H) 0.73 - 1.22 mg/dL Final 01/15/2022 1.85 (H) 0.73 - 1.22 mg/dL Final Estimated Glomerular Filtration Rate Date Value Ref Range Status 06/06/2022 41 (L) >=60 mL/min/1.73m? Final Comment: Estimated Glomerular Filtration Rate (eGFR) is calculated using the 2020 CKD-EPI creatinine equation. This equation utilizes serum creatinine, sex, and age as parameters. The creatinine assay has traceable calibration to isotope dilution-mass spectrometry. Refer to KDIGO guidelines for clinical interpretation. In patients with unstable renal function, e.g. those with acute kidney injury, the eGFR may not accurately reflect actual GFR. eGFR- Date Value Ref Range Status 11/09/2021 55 Final P.O.C.T. RESULTS: N/A October 25, [address] PERFORMED: No IV SITE: Ambulatory: A peripheral IV was started in the Right antecubital site with a Angio cath: 20 gauge. POST EXAM PIV STATUS: Discontinued PROCEDURE TYPE: NM PET Myocardial Imagin.0 mCi Rb-82(Rubidium) was administered IV for Rest Imaging at 1346. 30.1 mCi Rb-82(Rubidium) was administered IV for Stress Imaging at 1359. Viability Imaging performed: Yes = Viability Imaging. 9.2 millicurie F-18 FDG ADMINISTRATION TIME: 1416 PATIENT DISCHARGED TO: Ambulatory patient, left SD department area. A Diagnostic radioactive procedure has taken place, with no further precautions necessary other than routine body substance precautions. More information regarding radiation safety can be found using this link: [email or web address]%20Nuclear%20Me dicine%[email or web address] SIGNATURE: Luigi Desai EventBuilder PATIENT NAME: José Miguel Roth Jr. DATE: October 25, 2022 TIME: 1:32 PM PAGER/CONTACT #: [facility] 10-25-2022 Note HNO ID: [id number] Author: Josselin Claros RN Service: ? Author Type: Registered Nurse Type: Progress Notes Filed: 10/25/2022 2:18 PM Note Text: RADIOLOGY SERVICE PROGRESS NOTE SERVICE DATE: 10/25/2022 SERVICE TIME: 1:46 PM PATIENT IDENTITY VERIFICATION COMPLETED USING TWO (2) STANDARD IDENTIFIERS: Name and Date of confirmed by patient verbally and Name and Date of confirmed by identification band PATIENT GENDER DATA: male ALLERGIES: Reviewed and unchanged MEDICATIONS REVIEWED BY: Bag Filler and Josselin Claros RN PROCEDURE TYPE: SD PET Myocardial Imagin.4 mg of Regadenoson was administered at 1359 over 10 Seconds. Reversal agent used: None. and NM PET Myocardial Action Taken: POCT Blood Glucose 101 mg/dL at 1339 (QC = OK).9.2 mCi FDG-18 IV at 1416. POCT Blood Glucose 98 mg/dL at 1415 (QC = OK). Expiration date: 16JUN2025 Lot#: [id number] IV SITE: Ambulatory: A peripheral IV was started in the Right forearm with a Angio cath: 20 gauge. and A Saline lock was inserted per protocol POST EXAM PIV STATUS: Discontinued PATIENT DISCHARGED TO: Ambulatory patient, left SD department area. A Diagnostic radioactive procedure has taken place, with no further precautions necessary other than routine body substance precautions. More information regarding radiation safety can be found using this link: [email or web address] [email or web address] %[email or web address]-%20Diagnostic%20Nuclear%20Me dicine%20Procedures.[email or web address] SIGNATURE: Josselin Claros RN PATIENT NAME: José Miguel Roth Jr. DATE: October 25, 2022 TIME: 1:46 PM PAGER/CONTACT #: [facility] 10-25-2022 History of Present illness Narrative RADIOLOGY SERVICE PROGRESS NOTE SERVICE DATE: 10/25/2022 SERVICE TIME: 1:46 PM PATIENT IDENTITY VERIFICATION COMPLETED USING TWO (2) STANDARD IDENTIFIERS: Name and Date of confirmed by patient verbally and Name and Date of confirmed by identification band PATIENT GENDER DATA: male ALLERGIES: Reviewed and unchanged MEDICATIONS REVIEWED BY: Bag Filler and Josselin Claros RN PROCEDURE TYPE: NM PET Myocardial Imagin.4 mg of Regadenoson was administered at 1359 over 10 Seconds. Reversal agent used: None. and NM PET Myocardial Action Taken: POCT Blood Glucose 101 mg/dL at 1339 (QC = OK).9.2 mCi FDG-18 IV at 1416. POCT Blood Glucose 98 mg/dL at 1415 (QC = OK). Expiration date: 16JUN2025 Lot#: [id number] IV SITE: Ambulatory: A peripheral IV was started in the Right forearm with a Angio cath: 20 gauge. and A Saline lock was inserted per protocol POST EXAM PIV STATUS: Discontinued PATIENT DISCHARGED TO: Ambulatory patient, left SD department area. A Diagnostic radioactive procedure has taken place, with no further precautions necessary other than routine body substance precautions. More information regarding radiation safety can be found using this link: [email or web address]-%20Diagnostic%20N uclear%20Medicine%20Procedures.p df SIGNATURE: Josselin Claros RN PATIENT NAME: José Miguel Roth Jr. DATE: October 25, 2022 TIME: 1:46 PM PAGER/CONTACT #: RADIOLOGY SERVICE PROGRESS NOTE SERVICE DATE: 10/25/2022 SERVICE TIME: 1:32 PM PATIENT IDENTITY VERIFICATION COMPLETED USING TWO (2) STANDARD IDENTIFIERS: Name and Date of confirmed by patient verbally FALL SCREENING: Has the patient had 2 falls in the last year or 1 fall with injury or currently using an Ambulatory Assistive Device (Walker, Cane, Wheelchair, Crutches, etc.)? No PATIENT GENDER DATA: .male ALLERGIES: Reviewed and updated MEDICATIONS REVIEWED: No PATIENT RELEVANT IMPLANT DATA REVIEWED: Not Applicable CREATININE: Creatinine Date Value Ref Range Status 06/06/2022 1.68 (H) 0.73 - 1.22 mg/dL Final 04/19/2022 1.47 (H) 0.73 - 1.22 mg/dL Final 01/15/2022 1.85 (H) 0.73 - 1.22 mg/dL Final Estimated Glomerular Filtration Rate Date Value Ref Range Status 06/06/2022 41 (L) >=60 mL/min/1.73m Final Comment: Estimated Glomerular Filtration Rate (eGFR) is calculated using the 2020 CKD-EPI creatinine equation. This equation utilizes serum creatinine, sex, and age as parameters. The creatinine assay has traceable calibration to isotope dilution-mass spectrometry. Refer to KDIGO guidelines for clinical interpretation. In patients with unstable renal function, e.g. those with acute kidney injury, the eGFR may not accurately reflect actual GFR. eGFR- Date Value Ref Range Status 11/09/2021 55 Final P.O.C.T. RESULTS: N/A October 25, [address] PERFORMED: No IV SITE: Ambulatory: A peripheral IV was started in the Right antecubital site with a Angio cath: 20 gauge. POST EXAM PIV STATUS: Discontinued PROCEDURE TYPE: NM PET Myocardial Imagin.0 mCi Rb-82(Rubidium) was administered IV for Rest Imaging at 1346. 30.1 mCi Rb-82(Rubidium) was administered IV for Stress Imaging at 1359. Viability Imaging performed: Yes = Viability Imaging. 9.2 millicurie F-18 FDG ADMINISTRATION TIME: 1416 PATIENT DISCHARGED TO: Ambulatory patient, left SD department area. A Diagnostic radioactive procedure has taken place, with no further precautions necessary other than routine body substance precautions. More information regarding radiation safety can be found using this link: [email or web address]%20N uclear%20Medicine%20Procedures.p df SIGNATURE: Luigi Desai EventBuilder PATIENT NAME: José Miguel Roth Jr. DATE: October 25, 2022 TIME: 1:32 PM PAGER/CONTACT #: documented in this encounter [facility] 10-02-2022 Note HNO ID: [id number] Author: Yung Kim MD Service: ? Author Type: Physician Type: Progress Notes Filed: 10/08/2022 1:29 PM Note Text: Radiation Oncology - Follow Up Note PATIENT NAME: José Miguel Roth Jr. PATIENT DIAGNOSIS: Trying to get him a note from overview couple days rather do the PET scan for less a significantly Met second prostate adenocarcinoma, initial PSA 8, biopsy Thayer score 3 + 4 = 7 (grade group 2), clinical stage T1c, N0, M0, stage IIB [T1-T2, N0, M0, PSA <20, GG 2] (AJCC 8th ed.), s/p TRUS Random biopsy, Patient elected observation and was found to have progression, PSA 08/2021 36.2. and repeat biopsy showing Thayer 7 (3+4) adenocarcinoma. Okay RADIATION SUMMARY: DATES OF TREATMENT: 10/23/2021 to 12/19/2019 AREA TREATED: Pelvis Prostate DELIVERED DOSE: Area: Pelvis Prostate 4,600 cGy in 23 fractions, 3 Maxwell, IMRT, 10MV with daily CBCT Area: Pelvis Prostate Boost 3,200 cGy in 16 fractions, 2 Maxwell, IMRT, 10MV with daily CBCT TOTAL: 7,800 cGy in 39 Fractions ELAPSED TIME: 56 days. INTERVAL HISTORY: The patient presents for routine follow-up. He is still struggling with separation issues loss of his last year. He does have family support close by. He states that he has been eating fairly well. Denies any bowel or bladder related changes. PSA HISTORY: PSA (ng/mL) Date Value 04/19/2022 <0.02 01/15/2022 <0.02 11/09/2021 0.16 09/05/2021 36.20 PSA. (no units) Date Value 09/12/2022 <0.13 10/21/2018 12.30 ALLERGIES Allergen Reactions Latex Rash Adhesive Tape (Keyanna* Rash therapeutic multivitamin w/ iron (THERAGRAN-M) 27-0.4 mg tabletTake 1 tablet by mouth once daily.Disp: Rfl: torsemide (DEMADEX) 10 mg tabletTake 1 tablet by mouth once daily.Disp: 90 tabletRfl: 3 lisinopril (ZESTRIL, PRINIVIL) 5 mg tabletTake 1 tablet by mouth once daily.Disp: 90 tabletRfl: 3 aspirin, enteric coated (ASPIRIN, ENTERIC COATED) 81 mg EC tabletTake 1 tablet by mouth once daily.Disp: Rfl: FARXIGA 10 mg tabletTake 10 mg by mouth once daily.Disp: Rfl: spironolactone (ALDACTONE) 25 mg tabletTake 12.5 mg by mouth once daily.Disp: Rfl: ezetimibe (ZETIA) 10 mg tabletTake 10 mg by mouth once daily.Disp: Rfl: metoprolol succinate ER (TOPROL XL) 25 mg 24 hr tabletTake 1 tablet by mouth once daily.Disp: 90 tabletRfl: 3 ZINC ORALTake by mouth.Disp: Rfl: ascorbic acid (VITAMIN C ORAL)Take by mouth.Disp: Rfl: TURMERIC ORALTake by mouth.Disp: Rfl: Cholecalciferol, Vitamin D3, 25 mcg (1,000 unit) capTake 1,000 Units by mouth once daily. 2,000Disp: Rfl: ubidecarenone Q-10 (COENZYME Q-10) 10 mg capTake 10 mg by mouth once daily.Disp: Rfl: thyroid, pork, 60 mg tabletTake 60 mg by mouth once daily.Disp: Rfl: atorvastatin (LIPITOR) 40 mg tabletTake 40 mg by mouth daily at bedtime.Disp: Rfl: 2 REVIEW OF SYSTEMS: D/N = 4-5/1-2 Hematuria: none Dysuria: none Incontinence: none Urgency: mild Catheter use: none Medications to aid urination: no - Total AUA Score: 1.5 Bowel movement frequency: 1/day Bowel movement quality: normal Blood per rectum: none Last colonoscopy: na Androgen deprivation: Lupron/Casodex has stopped PHYSICAL EXAM: BP 113/71 Pulse 66 Temp (!) 35.9 ?C (96.7 ?F) Resp 18 Wt 86.2 kg (190 lb) SpO2 98% BMI 25.77 kg/m? KPS: 100 General Appearance: Alert and oriented. No acute distress. Rectal exam is deferred. ASSESSMENT/PLAN: Prostate adenocarcinoma, initial PSA 8, biopsy Ivory score 3 + 4 = 7 (grade group 2), clinical stage T1c, N0, M0, stage IIB [T1-T2, N0, M0, PSA <20, GG 2] (AJCC 8th ed.), s/p TRUS Random biopsy, In terms of prostate cancer patient doing well without significant posttreatment problems and an undetectable PSA. Discussed available counselor or social support for ongoing grief issues. Patient states that he is getting good support with his family. Encouraged him to call should he have questions regarding this. Signed by: Yung Kim MD cc: Francisca Thompson MD [address] [place] [address] [facility] 10-02-2022 Nurse Note AUA 1.5 Kathie Pavon RN documented in this encounter [facility] 10-02-2022 History of Present illness Narrative Radiation Oncology - Follow Up Note PATIENT NAME: José Miguel Roth Jr. PATIENT DIAGNOSIS: Trying to get him a note from overview couple days rather do the PET scan for less a significantly Met second prostate adenocarcinoma, initial PSA 8, biopsy Thayer score 3 + 4 = 7 (grade group 2), clinical stage T1c, N0, M0, stage IIB [T1-T2, N0, M0, PSA <20, GG 2] (AJCC 8th ed.), s/p TRUS Random biopsy, Patient elected observation and was found to have progression, PSA 08/2021 36.2. and repeat biopsy showing Thayer 7 (3+4) adenocarcinoma. Okay RADIATION SUMMARY: DATES OF TREATMENT: 10/23/2021 to 12/19/2019 AREA TREATED: Pelvis Prostate DELIVERED DOSE: Area: Pelvis Prostate 4,600 cGy in 23 fractions, 3 Maxwell, IMRT, 10MV with daily CBCT Area: Pelvis Prostate Boost 3,200 cGy in 16 fractions, 2 Maxwell, IMRT, 10MV with daily CBCT TOTAL: 7,800 cGy in 39 Fractions ELAPSED TIME: 56 days. INTERVAL HISTORY: The patient presents for routine follow-up. He is still struggling with separation issues loss of his last year. He does have family support close by. He states that he has been eating fairly well. Denies any bowel or bladder related changes. PSA HISTORY: PSA (ng/mL) Date Value 04/19/2022 <0.02 01/15/2022 <0.02 11/09/2021 0.16 09/05/2021 36.20 PSA. (no units) Date Value 09/12/2022 <0.13 10/21/2018 12.30 ALLERGIES Allergen Reactions Latex Rash Adhesive Tape (Keyanna* Rash therapeutic multivitamin w/ iron (THERAGRAN-M) 27-0.4 mg tablet^Take 1 tablet by mouth once daily.^Disp: ^Rfl: torsemide (DEMADEX) 10 mg tablet^Take 1 tablet by mouth once daily.^Disp: 90 tablet^Rfl: 3 lisinopril (ZESTRIL, PRINIVIL) 5 mg tablet^Take 1 tablet by mouth once daily.^Disp: 90 tablet^Rfl: 3 aspirin, enteric coated (ASPIRIN, ENTERIC COATED) 81 mg EC tablet^Take 1 tablet by mouth once daily.^Disp: ^Rfl: FARXIGA 10 mg tablet^Take 10 mg by mouth once daily.^Disp: ^Rfl: spironolactone (ALDACTONE) 25 mg tablet^Take 12.5 mg by mouth once daily.^Disp: ^Rfl: ezetimibe (ZETIA) 10 mg tablet^Take 10 mg by mouth once daily.^Disp: ^Rfl: metoprolol succinate ER (TOPROL XL) 25 mg 24 hr tablet^Take 1 tablet by mouth once daily.^Disp: 90 tablet^Rfl: 3 ZINC ORAL^Take by mouth.^Disp: ^Rfl: ascorbic acid (VITAMIN C ORAL)^Take by mouth.^Disp: ^Rfl: TURMERIC ORAL^Take by mouth.^Disp: ^Rfl: Cholecalciferol, Vitamin D3, 25 mcg (1,000 unit) cap^Take 1,000 Units by mouth once daily. 2,000^Disp: ^Rfl: ubidecarenone Q-10 (COENZYME Q-10) 10 mg cap^Take 10 mg by mouth once daily.^Disp: ^Rfl: thyroid, pork, 60 mg tablet^Take 60 mg by mouth once daily.^Disp: ^Rfl: atorvastatin (LIPITOR) 40 mg tablet^Take 40 mg by mouth daily at bedtime.^Disp: ^Rfl: 2 REVIEW OF SYSTEMS: D/N = 4-5/1-2 Hematuria: none Dysuria: none Incontinence: none Urgency: mild Catheter use: none Medications to aid urination: no - Total AUA Score: 1.5 Bowel movement frequency: 1/day Bowel movement quality: normal Blood per rectum: none Last colonoscopy: na Androgen deprivation: Lupron/Casodex has stopped PHYSICAL EXAM: BP 113/71 Pulse 66 Temp (!) 35.9 C (96.7 F) Resp 18 Wt 86.2 kg (190 lb) SpO2 98% BMI 25.77 kg/m KPS: 100 General Appearance: Alert and oriented. No acute distress. Rectal exam is deferred. ASSESSMENT/PLAN: Prostate adenocarcinoma, initial PSA 8, biopsy Ivory score 3 + 4 = 7 (grade group 2), clinical stage T1c, N0, M0, stage IIB [T1-T2, N0, M0, PSA <20, GG 2] (AJCC 8th ed.), s/p TRUS Random biopsy, In terms of prostate cancer patient doing well without significant posttreatment problems and an undetectable PSA. Discussed available counselor or social support for ongoing grief issues. Patient states that he is getting good support with his family. Encouraged him to call should he have questions regarding this. Signed by: Yung Kim MD cc: Francisca Thompson MD [address] [place] [address] documented in this encounter [facility] 09-11-2022 Miscellaneous Notes 09/11 Spoke with patient he said that he was not aware that he needed a pet scan, He would like to speak with Dr. Del Cid about the test. He also said that he will have his daughter call to make the appt. Preliminary Approval for Scheduling Purposes ONLY Are Cardiac PET orders Present: Yes Do the order comments specify a Protocol or Instruction? No LVEF: LV Ejection Fraction (%) Date Value 06/06/2022 20 Test Approved: Yes, N/A PET Perfusion Rest & Stress w/ Viability (0109, 0102) Additional Comments: Chronic systolic heart failure (HCC) [I50.22] Coronary artery disease involving [place] coronary artery of [place] heart without angina pectoris [I25.10] Test Approved by: Aisha Benavides RN If additional orders are required route to ordering physician and to P PET SUSTAINABILITY OFFICER MC with recommendations. If all recommended orders are present route to P PET SUSTAINABILITY OFFICER MC This form is used for MAIN CAMPUS APPOINTMENTS ONLY. Is this request for a [facility] [place] PET scan appointment? Yes: Supervisor Cellars: Darlene LUNA Requesting Person (Andreas Del Cid): [phone] Area Code + Phone/Pager: Who do we call to schedule this appointment? Patient Requesting Staff Area Code + Phone/Pager: N/A PET Orders (A delay in scheduling will result if the orders are not present at time of review): Internal ADDITIONAL ACTION MAY BE REQUIRED IF PATIENTS OON INSURANCE OR SELF PAY COVERAGE HAS NOT BEEN CLEARED FOR REQUESTED APPOINTMENT. Scheduling: CASPER: As soon as insurance will allow What account will this PET appointment be linked to? P/F Type of PET: Myocardial (Cardiac). Which PET orders are active (select all that apply)? PET Cardiac Rest/Stress Is this cardiac PET for Sarcoidosis?(See orders) No Is this a NON-[facility] Physician ordering a cardiac PET with a FAXED script? No. Same day/next day medically urgent scans please call [phone] to expedite LVEF: LV Ejection Fraction (%) Date Value 06/06/2022 20 LVEF Free text: Yes, see above. Additional comments: N/A Send requests to P CARDIAC PET MD MC documented in this encounter [facility] 09-03-2022 History of Present illness Narrative Images from the original note were not included. DATE: 07/01/2012 AGE: 72 SURGEON 1: John Jefferson M.D. OPERATION: Right carotid endarterectomy with bovine patch angioplasty. Heart [facility] V[facility] Thor[facility] [place] DEPARTMENT OF VASCULAR SURGERY OUTPATIENT VISIT DATE September 03, 2022 OUTPATIENT VISIT TYPE CONSULTATION SERVICE DATE: 09/03/2022 SERVICE TIME: 11:53 AM PRIMARY CARE PHYSICIAN: Francisca Thompson MD, MD REFERRING PROVIDER: Francisca Thompson MD [facility] [address] Consult requested for an opinion regarding the evaluation and treatment of the above. My final impression and recommendations will be communicated back to the requesting physician by way of the shared medical record or letter via [place] mail. CHIEF COMPLAINT: Carotid stenosis HISTORY OF PRESENT ILLNESS: Vascular consultation at the request of Dr. Francisca Thompson. A copy of this consultation note will be provided to the requesting physician by way of shared Medical record or letter to requesting physician via US mail. Mr. Roth is a 82 year old male who is seen today for evaluation of his carotid stenosis. Most recently, he had a stroke in September where he was weaker on his left side. He had systemic tPA treatment and recovered from that. CTA obtained show that he has severe L ICA stenosis. He is here for evaluation of this. He has been having vision changes on his left eye described as squiggly lines and color changes but no amaurosis fugax. He denies any further weakness/numbness/tingling. Of note, he was recently hospitalized in [place] on April for not feeling well. He has been grieving since his has passed in December. 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 without mention of cerebral infarction Prostate cancer ([facility]) 2020 PVD (peripheral vascular disease) ([facility]) 11/17/2012 Thyroid disorder Ventricular tachycardia 04/28/2012 PAST SURGICAL HISTORY Procedure Laterality Date ANGIOGRAPHY, EXT CAROTID Right 2011 CABG (3) VEIN GRAFTS & ARTERIAL GRAFT(S) 05/01/2012 Median sternotomy, coronary artery bypass grafting with in situ left internal thoracic artery to the LAD, and reverse saphenous vein graft to the posterior descending artery and obtuse marginal. HEART CATHETERIZATION SOCIAL HISTORY: Social History Tobacco Use Smoking status: Former Packs/day: 1.00 Years: 10.00 Pack years: 10.00 Types: Cigarettes, Pipe Quit date: 04/28/1982 Years since quittin.3 Smokeless tobacco: Never Vaping Use Vaping Use: Never used Substance Use Topics Alcohol use: Yes Comment: occassional Drug use: No FAMILY HISTORY Problem Relation Age of Onset Coronary Artery Disease Father Heart Attack Father fatal IA at age 77 other (atrial fibrillation) Mother other (CHF) Mother other (Other) Mother at age 96 Ischemic Heart Disease Brother CABGx6 first at age 72 No Known Problems Daughter No Known Problems Daughter No Known Problems Daughter other (Other) Other paternal cousin at age 50 of [place] MEDICATIONS: therapeutic multivitamin w/ iron (THERAGRAN-M) 27-0.4 mg tablet^Take 1 tablet by mouth once daily.^Disp: ^Rfl: torsemide (DEMADEX) 10 mg tablet^Take 1 tablet by mouth once daily.^Disp: 90 tablet^Rfl: 3 lisinopril (ZESTRIL, PRINIVIL) 5 mg tablet^Take 1 tablet by mouth once daily.^Disp: 90 tablet^Rfl: 3 aspirin, enteric coated (ASPIRIN, ENTERIC COATED) 81 mg EC tablet^Take 1 tablet by mouth once daily.^Disp: ^Rfl: FARXIGA 10 mg tablet^Take 10 mg by mouth once daily.^Disp: ^Rfl: spironolactone (ALDACTONE) 25 mg tablet^Take 12.5 mg by mouth once daily.^Disp: ^Rfl: FEROSUL 325 mg (65 mg iron) tablet^Take 1 tablet by mouth once daily.^Disp: ^Rfl: ezetimibe (ZETIA) 10 mg tablet^Take 10 mg by mouth once daily.^Disp: ^Rfl: metoprolol succinate ER (TOPROL XL) 25 mg 24 hr tablet^Take 1 tablet by mouth once daily.^Disp: 90 tablet^Rfl: 3 ubidecarenone Q-10 (COENZYME Q-10) 10 mg cap^Take 10 mg by mouth once daily.^Disp: ^Rfl: atorvastatin (LIPITOR) 40 mg tablet^Take 40 mg by mouth daily at bedtime.^Disp: ^Rfl: 2 ZINC ORAL^Take by mouth.^Disp: ^Rfl: (Patient not taking: Reported on 09/03/2022) ascorbic acid (VITAMIN C ORAL)^Take by mouth.^Disp: ^Rfl: (Patient not taking: Reported on 09/03/2022) TURMERIC ORAL^Take by mouth.^Disp: ^Rfl: (Patient not taking: Reported on 09/03/2022) Cholecalciferol, Vitamin D3, 25 mcg (1,000 unit) cap^Take 1,000 Units by mouth once daily. 2,000^Disp: ^Rfl: (Patient not taking: Reported on 09/03/2022) ARMOUR THYROID 90 mg tab^Take 90 mg by mouth once daily.^Disp: ^Rfl: ALLERGIES: ALLERGIES Allergen Reactions Latex Rash Adhesive Tape (Keyanna* Rash REVIEW OF SYSTEM: Constitutional: No weight loss, malaise or fevers. HEENT: Negative for frequent or significant headaches Respiratory: Negative for cough, wheezing, or shortness of breath Cardiovascular: Negative for chest pain, leg swelling or palpitations Gatrointestinal: Negative for abdominal discomfort, blood in stools or black stools or change in bowel habits Genitourinary: No history of dysuria, frequency, or incontinence Musculoskeletal: Negative for joint pain or swelling, back pain or muscle pain Endocrine: Negative for cold or heat intolerance, polyuria, polydipsia and goiter Hematology/Lymphatic: Negative for prolonged bleeding, bruising easily or swollen nodes Neurologic: No history or headaches, syncope, paralysis, seizures or tremors Integumentary: Negative for lesions, rash, and itching. PHYSICAL EXAM: VITALS: BP 133/78 Pulse 82 Temp (Src) 97.9 (Oral) Resp 18 Ht 6' 0 (1.83m) Wt 185 lb 3.2 oz (84.0kg) SpO2 98% BMI 25.11 kg/(m^2). General: Alert and oriented Integumentary: Normal color, no rash, no lesions. HEENT: EOM, pupils equal, round and reactive. Cardiovascular: Normal S1 & S2, no rubs, murmurs or gallops. No JVD., Pulse regular. Lungs: Normal breath sounds, no wheezes or crackles. Abdomen: Soft, non-tender, no rigidity. Extremities: No deformity, no edema or tenderness, no joint swelling or clubbing. Neurological: Normal cognition and motor skills. Vascular: Carotid Pulse Right: Normal - Left: Normal Brachial Pulse Right: Normal - Left: Normal Radial Pulse Right: Normal - Left: Normal Femoral Pulse Right: Normal - Left: Normal Popliteal Pulse Right: Normal - Left: Normal Nonpalpable pedal pulses bilaterally Diagnostic tests reviewed for today's visit: HUSSEIN Jefferson MD ([id number]) paged with results. Compared to prior study of 09/19/2015, the degree of stenosis has increased bilaterally to 80-99% on the left and 20-39% on the right. RIGHT SIDE Common carotid artery: Plaque visualized without evidence of hemodynamically significant stenosis. Endarterectomy patch at distal : 1.2 cm. Internal carotid artery: 20-39% stenosis. Vertebral artery: Patent and antegrade flow noted. Subclavian artery: Plaque visualized without evidence of hemodynamically significant stenosis. LEFT SIDE Common carotid artery: Plaque visualized without evidence of hemodynamically significant stenosis. Internal carotid artery: 80-99% stenosis. External carotid artery: Elevated velocities noted. Vertebral artery: Patent and antegrade flow noted. Abnormal signal suggests pre-steal. IMPRESSION: [facility] STAFF PHYSICIAN NOTE OF PERSONAL INVOLVEMENT IN CARE Vascular STAFF -John Jefferson MD I have reviewed the documentation above obtained and documented by the Fellow. I have personally performed a face to face assessment of the patient and have personally participated on the boss components of the history, exam and medical decision making and have reviewed and updated the problem list as appropriate. I have personally participated in the boss component and physical exam and have discussed the case and management of the patient's care. The following comments revise or confirm relevant boss components. IMPRESSION/PLAN: I have dictated additional findings and plan STAFF PHYSICIAN: John Jefferson MD DATE OF SERVICE: September 03, 2022 TIME OF SERVICE: 2:23 PM IMPRESSION: Mr. Roth is a 82 year old male with 90% LICA stenosis . PLAN and RECOMMENDATIONS: REPAIR RECOMMENDED: Carotid Repair Indications for Surgery: Asymptomatic with 80% Stenosis or Greater Anatomical Indicators: None High Risk Indicators: Greater Than 2 Vessel CAD and CHF Type: Endarterectomy vs TCAR pending clearance by cards SIGNATURE: John Jefferson MD PATIENT NAME: José Miguel Roth Jr. DATE: September 03, 2022 TIME: 2:20 PM documented in this encounter [facility] 08-01-2022 Miscellaneous Notes Mr Roth's daughter called and she would like to schedule an appointment with pt advised to do so due to Carotid stenosis seen Dr jefferson in 2011 regarding right side now its the left side having issues Contact Name (If not the pt): Charu, daughter Home and cell number: [phone] Diagnosis: Carotid stenosis Kind Regards Ayana Jauregui documented in this encounter [facility] 07-30-2022 Miscellaneous Notes Reason for call: Mr Roth called,and he would like to schedule an appointment with Contact Name (If not the pt): Charu, daughter Home and cell number: [phone] Diagnosis: Mitral valve insufficiency, unspecified etiology Kind Regards Mary documented in this encounter [facility] 07-26-2022 Note Discussed the condit ion with cardiology. I called the patient talk to him and then his daughter was called back with the patient on the phone and explained about 17 minutes discussing his condition. He has significant stenosis in the left carotid artery 95 to 99% with an eccentric plaque on the origin of the internal carotid artery by the CAT scan. The patient had symptoms from the artery which she indicated leg look like on the left I then recovered back to normal that might be related to his carotid disease. Patient has a history of right carotid endarterectomy in the past. He will certainly benefit from left carotid endarterectomy. His plaque on the left side is not the best plaque to be treated with stenting as I mention to the patient. I discussed with the patient and his daughters potential complication for not doing the procedure which include the stroke and potential complication if doing the procedure which is against stroke but a much lower potential for getting a stroke. I answered all the questions to the patient and they want to talk to a third daughter whom I gave them the phone number of the bowling alley operator and the office number if she likes to talk to me and happy to discuss that with her. I offered to proceed with doing the procedure for next week however the patient has to come back to me for approval or declining to do the procedure. I answered the questions about the activity after the procedure. [facility] 07-25-2022 Miscellaneous Notes Images have been pushed through into [facility] [employer]. Daughter would like you to call her to go over things as this was all completed after he saw you in office. She can be reached at [phone] Her name is Charu documented in this encounter [facility] 07-23-2022 Note Patient here for 2 m o follow up carotid artery stenosis and CAD. Labs were done on 06/27/2022 but LIPID was not completed. He had CTA NECK for Dr. Locke. Dr. Thompson advised him to hold spironolactone due to lightheadedness. He said it helped but still there. Patient says when he feels lightheaded he will check his BP and it's never too low. Subjective José Miguel Roth is a 82 y.o. year old male patient being seen for No chief complaint on file. Patient Active Problem List Diagnosis Coronary artery disease involving coronary bypass graft of [place] heart Chronic systolic heart failure (CMS/HCC) NSVT (nonsustained ventricular tachycardia) Old IA (myocardial infarction) Mitral valve insufficiency Claudication, intermittent (CMS/HCC) Carotid stenosis, asymptomatic, left History of ischemic stroke Family History Problem Relation Name Age of Onset Coronary artery disease Father Coronary artery disease Brother Social History Tobacco Use Smoking status: Former Types: Cigarettes Smokeless tobacco: Never Substance Use Topics Alcohol use: Not Currently HPI Visit of 05/28/2022: He has prior history of coronary artery disease status post bypass surgery in the past. Recent cardiac catheterization showed patent OTTO to LAD and bypass to the obtuse marginal branch of the circumflex. The bypass graft to the RCA is occluded. There is filling of the RCA via collateral circulation coming from the left coronary system. He also has advanced systolic heart failure. He is status post dual-chamber ICD placement in the past. He was recently admitted transferred from the [facility] to [facility] with acute on chronic systolic heart failure and underwent diuresis. He also had acute renal insufficiency and his renal function improved with treatment. His ejection fraction by echocardiography was down to 10 to 15%. He was managed with guideline directed medical therapy for heart failure which is limited by his borderline blood pressure. He could not tolerate Entresto which was tried by his primary care physician Dr. Francisca Thompson. He has history of carotid artery stenosis status post right carotid endarterectomy many years ago. In August 2021 he was admitted to the [facility] after sustaining a acute ischemic stroke with left upper and lower extremity paralysis that was treated by intravenous tPA with resolution of his symptoms. At that time he was discovered to have severe stenosis of the left internal carotid artery. He was lost to follow-up after that. During his recent stay at [facility] and echocardiogram confirmed very high-grade stenosis of the left internal carotid artery. He denies any symptoms referable to left carotid artery stenosis. He does not have angina. He currently feels well with mild shortness of breath on exertion, NYHA class II. He has no significant lower extremity edema. He was maintained on atorvastatin 40 mg daily in the past but he was not adherent to therapy. His LDL level during his recent hospitalization was 95. He is currently undergoing physical rehab at a nearby care home. Visit of 07/23/2022: At last visit I did the following: I stressed the importance of adhering to statin therapy and I also added the ezetimibe 10 mg daily. Lipid profile was not performed. I increased metoprolol succinate to 25 mg once daily. He has been holding spironolactone due to occasional dizziness. His blood pressure has not been low. I referred him to vascular surgery due to asymptomatic severe left carotid artery stenosis. Today he reports that he still gets occasional dizziness. He has bilateral leg swelling. He has been taking torsemide 10 mg daily as needed (started 3 days ago). No chest pain. NYHA class 2. Review of Systems Cardiovascular: Positive for dyspnea on exertion and leg swelling. Respiratory: Positive for shortness of breath. Neurological: Positive for dizziness and light-headedness. Brief paralysis: Left upper and lower extremity paralysis during stroke in August 2021. Objective Visit Vitals BP 114/67 (BP Location: Left arm, Patient Position: Sitting) Pulse 65 Ht 1.829 m (6') Wt 83 kg (183 lb) SpO2 97% BMI 24.82 kg/m??? Smoking Status Former BSA 2.05 m??? Physical Exam Constitutional: Appearance: He is well-developed. He is not ill-appearing. HENT: Head: Normocephalic and atraumatic. Nose: Nose normal. Eyes: General: No scleral icterus. Pupils: Pupils are equal, round, and reactive to light. Neck: Thyroid: No thyromegaly. Vascular: JVD present. Cardiovascular: Rate and Rhythm: Normal rate and regular rhythm. Heart sounds: Normal heart sounds. No murmur heard. No friction rub. No gallop. Pulmonary: Effort: Pulmonary effort is normal. No respiratory distress. Breath sounds: Normal breath sounds. No wheezing or rales. Chest: Chest wall: No tenderness. Abdominal: General: Bowel sounds are normal. There is (more content not included)... [facility] 06-06-2022 History of Present illness Narrative Heart and Vascular [place] Jose Martin Silva Department of Cardiovascular Medicine SECTION OF CARDIOVASCULAR IMAGING OUTPATIENT VISIT DATE June 06, 2022 OUTPATIENT VISIT TYPE ESTABLISHED PRIMARY CARE PHYSICIAN: Francisca Thompson MD [address] [place] [address] CHIEF COMPLAINT: Follow up HISTORY OF PRESENT ILLNESS: Mr. Roth is a 82 year old male who presents today for follow-up visit. His history is notable for: 1. CAD, h/o posterior STEMI c severe LAD disease, occluded Cx and RCA, s/p OTTO to LAD, SVG to PDA and SVG to OM. Coronary angiogram with patent OTTO to LAD, patent SVG to OM, and occluded SVG to RCA. 2. PAD s/p R CEA in 2011. 3. CKD. 4. Chronic systolic heart failure He has been caring for his and she passed in December. Since then, he has been very depressed and not eating. He is accompanied today by 2 daughters. He was hospitalized a few weeks ago for acute on chronic kidney injury. He had a LHC which by report was unchanged. He currently feels Ok - no dyspnea with exertion. He has not needed to take any torsemide. He is scheduled to begin Phase II cardiac rehabilitation, but he is not sure if he is mentally ready. He reports his home BPs are generally in the 120s systolic. He denies chest pain, shortness of breath, orthopnea, cough, edema, palpitations, PND, lightheadedness or syncope. 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 without mention of cerebral infarction Prostate cancer (HCC) 2020 PVD (peripheral vascular disease) ([facility]) 11/17/2012 Thyroid disorder Ventricular tachycardia ([facility]) 04/28/2012 PAST SURGICAL HISTORY Procedure Laterality Date ANGIOGRAPHY, EXT CAROTID Right 2012 CABG (3) VEIN GRAFTS & ARTERIAL GRAFT(S) 05/01/2012 Median sternotomy, coronary artery bypass grafting with in situ left internal thoracic artery to the LAD, and reverse saphenous vein graft to the posterior descending artery and obtuse marginal. HEART CATHETERIZATION SOCIAL HISTORY Social History Tobacco Use Smoking status: Former Packs/day: 1.00 Years: 10.00 Pack years: 10.00 Types: Cigarettes, Pipe Quit date: 04/28/1982 Years since quittin.1 Smokeless tobacco: Never Vaping Use Vaping Use: Never used Substance Use Topics Alcohol use: Yes Comment: occassional Drug use: No FAMILY HISTORY Problem Relation Age of Onset Coronary Artery Disease Father Heart Attack Father fatal IA at age 77 other (atrial fibrillation) Mother other (CHF) Mother other (Other) Mother at age 96 Ischemic Heart Disease Brother CABGx6 first at age 72 No Known Problems Daughter No Known Problems Daughter No Known Problems Daughter other (Other) Other paternal cousin at age 50 of IA ALLERGIES: ALLERGIES Allergen Reactions Latex Rash Adhesive Tape (Keyanna* Rash MEDICATIONS: aspirin, enteric coated (ASPIRIN, ENTERIC COATED) 81 mg EC tablet^Take 1 tablet by mouth once daily.^Disp: ^Rfl: FARXIGA 10 mg tablet^Take 10 mg by mouth once daily.^Disp: ^Rfl: spironolactone (ALDACTONE) 25 mg tablet^Take 12.5 mg by mouth once daily.^Disp: ^Rfl: FEROSUL 325 mg (65 mg iron) tablet^Take 1 tablet by mouth twice daily.^Disp: ^Rfl: ezetimibe (ZETIA) 10 mg tablet^Take 10 mg by mouth once daily.^Disp: ^Rfl: ARMOUR THYROID 90 mg tab^Take 90 mg by mouth once daily.^Disp: ^Rfl: atorvastatin (LIPITOR) 40 mg tablet^Take 40 mg by mouth daily at bedtime.^Disp: ^Rfl: 2 metoprolol succinate ER (TOPROL XL) 25 mg 24 hr tablet^Take 1 tablet by mouth once daily.^Disp: 90 tablet^Rfl: 3 ZINC ORAL^Take by mouth.^Disp: ^Rfl: ascorbic acid (VITAMIN C ORAL)^Take by mouth.^Disp: ^Rfl: TURMERIC ORAL^Take by mouth.^Disp: ^Rfl: Cholecalciferol, Vitamin D3, 25 mcg (1,000 unit) cap^Take 1,000 Units by mouth once daily. 2,000^Disp: ^Rfl: ubidecarenone Q-10 (CO Q-10) 10 mg cap^Take 10 mg by mouth once daily.^Disp: ^Rfl: REVIEW OF SYSTEMS: GENERAL: Negative for: Weight loss or gain, Fever or Chills, Weakness and Sleep difficulties. HEENT: Negative for: Headache, Impaired Vision, Glasses, Hearing Impairment, Ringing in Ears, Nosebleeds, Poor dental care, Bleeding Gums, Dentures NECK: Negative for: Swelling, Pain, Stiffness RESPIRATORY: Negative for: Cough, Blood in Sputum, Shortness of breath, Wheezing, Apnea GASTROINTESTINAL: Negative for: Trouble swallowing, Heartburn, Change in bowel habits, Blood in stool, Dark black stools MUSCULOSKELETAL: Negative for: Muscle or joint pain, Stiffness , Joint swelling NEUROLOGIC/PSYCHIATRIC: Negative for: Weakness, Paralysis, Numbness, Tingling, Tremor, Nervousness, Depressed mood, Memory loss SKIN: Negative for: Rashes, Itching HEMATOLOGICAL/LYMPHATIC: Negative for: Easy bruising , Easy bleeding ENDOCRINE: Negative for: Heat or cold intolerance, Excessive sweating, Frequent urination, Frequent thirst PHYSICAL EXAMINATION: BP 101/63 (BP Site: Left Arm, BP Position: Sitting, BP Cuff Size: Regular Adult) Pulse 71 Ht 182.9 cm (6') Wt 76.7 kg (169 lb) SpO2 97% BMI 22.92 kg/m General: Well appearing, in no acute distress. Skin: No clubbing, no cyanosis. Eyes: Extra ocular movements intact Oropharynx: Teeth in good repair. Neck: No jugular venous distention, no carotid bruits, carotids have a normal upstroke, no palpable thyromegaly. Lungs: Clear to auscultation bilaterally, no wheezing or rhonchi. Heart: Regular rhythm, PMI not displaced, S1, S2 normal, no S3, no S4, no heaves, no rub and iii/vi apical holosystolic murmur. Abdomen: Soft, nontender, bowel sounds normal, no palpable organomegaly, no bruits. Extremities: No peripheral edema . Grade 2/4 distal pulses bilaterally. Neuro: Oriented to person, place and time, alert, cooperative, gait coordinated. CARDIOVASCULAR MEDICINE TESTING: I have personally reviewed the Electrocardiogram and Echocardiogram. Last CT Result Conclusion CT CHEST W IVCON Exam End: 09/13/2021 3:08 PM (Final result) Impression: IMPRESSION: 1. Multiple small bilateral pulmonary nodules measuring less than 0.5 cm are nonspecific. Continued attention on substance studies is suggested. 2. Mildly enlarged right hilar lymph node and borderline enlarged left hilar lymph node are indeterminate. Transcribe Date/Time: Sep 13 2021 3:28P Dictated by: DENZEL MYERS MD This examination was interpreted and the report reviewed and electronically signed by: DENZEL MYERS MD on Sep 13 2021 3:43PM EST Thank you for allowing us to participate in the care of your patient. Should there be any questions regarding this interpretation, please call [phone]. If you are unable to reach us at the number above, please feel free to contact [facility] at [phone]. IMPRESSION: Mr. Roth is a 82 year old male a h/o CAD s/p CABG, vascular disease s/p R CEA, chronic LV systolic dysfunction, s/p PPM ICD who presents for F/U after recent hospitalziation. Today, he actually looks quite well and is euvolemic on exam. PLAN AND RECOMMENDATIONS: Check BMP to see if we can re-introduce ACEi or ARNI. Continue sglt2-inhibitor, aldactone. Change metoprolol tartrate to succinate. On Atova 40 and Zetia 10. If clinically worsens, would consider evaluation for percutaneous MR options. F/U in 6 months. CONTACT INFORMATION: Andreas Del Cid MD 3:36 PM June 06, 2022 documented in this encounter [facility] 05-28-2022 Note Subjective José Miguel Roth is a 82 y.o. male. Chief Complaint: Coronary Artery Disease, Congestive Heart Failure, NSVT, Claudication, Valve Disorder, Hyperlipidemia, and Hypertension Nursing Note: Patient here for [facility] follow up. He is re-transferring care from [facility]. He underwent cardiac cath on 05/18/[address] Hall. He has a Medtronic ICD. Patient Active Problem List Diagnosis Coronary artery disease involving coronary bypass graft of [place] heart Chronic systolic heart failure ([facility]/HCC) NSVT (nonsustained ventricular tachycardia) ([facility]) Old IA (myocardial infarction) Mitral valve insufficiency Claudication, intermittent ([facility]) Family History Problem Relation Name Age of Onset Coronary artery disease Father Coronary artery disease Brother Social History Tobacco Use Smoking status: Former Types: Cigarettes Smokeless tobacco: Never Substance Use Topics Alcohol use: Not Currently HPI He has prior history of coronary artery disease status post bypass surgery in the past. Recent cardiac catheterization showed patent OTTO to LAD and bypass to the obtuse marginal branch of the circumflex. The bypass graft to the RCA is occluded. There is filling of the RCA via collateral circulation coming from the left coronary system. He also has advanced systolic heart failure. He is status post dual-chamber ICD placement in the past. He was recently admitted transferred from the [facility] to [facility] with acute on chronic systolic heart failure and underwent diuresis. He also had acute renal insufficiency and his renal function improved with treatment. His ejection fraction by echocardiography was down to 10 to 15%. He was managed with guideline directed medical therapy for heart failure which is limited by his borderline blood pressure. He could not tolerate Entresto which was tried by his primary care physician Dr. Francisca Thompson. He has history of carotid artery stenosis status post right carotid endarterectomy many years ago. In August 2021 he was admitted to the [facility] after sustaining a acute ischemic stroke with left upper and lower extremity paralysis that was treated by intravenous tPA with resolution of his symptoms. At that time he was discovered to have severe stenosis of the left internal carotid artery. He was lost to follow-up after that. During his recent stay at [facility] and echocardiogram confirmed very high-grade stenosis of the left internal carotid artery. He denies any symptoms referable to left carotid artery stenosis. He does not have angina. He currently feels well with mild shortness of breath on exertion, NYHA class II. He has no significant lower extremity edema. He was maintained on atorvastatin 40 mg daily in the past but he was not adherent to therapy. His LDL level during his recent hospitalization was 95. He is currently undergoing physical rehab at a nearby care home. Review of Systems Constitutional: Negative for chills. Cardiovascular: Positive for dyspnea on exertion. Negative for chest pain and claudication. Respiratory: Positive for shortness of breath. Neurological: Positive for dizziness. Negative for brief paralysis (Left upper and lower extremity paralysis during stroke in August 2021). Objective Visit Vitals BP 113/74 Pulse 93 Ht 1.829 m (6') Wt 77.6 kg (171 lb) Comment: pound SpO2 98% BMI 23.19 kg/m??? Smoking Status Former BSA 1.99 m??? Vitals and nursing note reviewed. Constitutional: Appearance: Healthy appearance. Not in distress. Neck: Vascular: No JVR. JVD normal. Pulmonary: Effort: Pulmonary effort is normal. Breath sounds: Normal breath sounds. No wheezing. No rhonchi. No rales. Chest: Chest wall: Not tender to palpatation. Cardiovascular: PMI at left midclavicular line. Normal rate. Regular rhythm. Normal S1. Normal S2. Murmurs: There is no murmur. No gallop. Pulses: Radial: 2+ bilaterally. Edema: Peripheral edema present. Ankle: bilateral trace edema of the ankle. Abdominal: General: Bowel sounds are normal. Palpations: Abdomen is soft. Tenderness: There is no abdominal tenderness. Musculoskeletal: Normal range of motion. General: No tenderness. Skin: General: Skin is warm and dry. Neurological: General: No focal deficit present. Mental Status: Alert and oriented to person, place and time. Allergies Allergen Reactions Latex Current Outpatient Medications: aspirin 81 mg EC tablet, Take 1 tablet every day by oral route., Disp: , Rfl: atorvastatin (Lipitor) 40 mg tablet, Take 1 tablet by mouth in the morning., Disp: , Rfl: dapagliflozin (Farxiga) 10 mg, Farxiga 10 mg tablet TAKE ONE TABLET BY MOUTH EVERY DAY, Disp: , Rfl: ferrous sulfate 325 (65 Fe) MG tablet, 65 mg., Disp: , Rfl: metoprolol succinate XL (Toprol-XL) 25 mg 24 hr tablet, Take 0.5 tablets by mouth in the morning., Disp: , Rfl: thyroid, pork, (Davilla Thyroid) 90 m (more content not included)... [facility] 04-26-2022 History of Present illness Narrative AMBULATORY TELEPHONE VISIT José Miguel Roth Jr. has consented to this telephone encounter. 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 and repeat biopsy showing Thayer 7 (3+4) adenocarcinoma. RADIATION SUMMARY: DATES OF TREATMENT: 10/23/2021 to 12/19/2019 AREA TREATED: Pelvis Prostate DELIVERED DOSE: Area: Pelvis Prostate 4,600 cGy in 23 fractions, 3 Maxwell, IMRT, 10MV with daily CBCT Area: Pelvis Prostate Boost 3,200 cGy in 16 fractions, 2 Maxwell, IMRT, 10MV with daily CBCT TOTAL: 7,800 cGy in 39 Fractions ELAPSED TIME: 56 days. HPI: Denies new problems. Main complaint hot flashes. Data Reviewed: Most recent labs PSA (ng/mL) Date Value 04/19/2022 <0.02 01/15/2022 <0.02 11/09/2021 0.16 09/05/2021 36.20 PSA. 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 and repeat biopsy showing Thayer 7 (3+4) adenocarcinoma. Overall doing well without evidence of recurrence. PSA remains undetectable. Has been off Lupron now, last dose approximately 9 months ago. Recommend continued PSA surveillance. Total Time Spent: 5 minutes Yung Kim MD documented in this encounter [facility] 01-03-2022 History of Present illness Narrative [facility] Radiation Oncology Department RADIATION ONCOLOGY - COMPLETION NOTE PATIENT: JOSÉ MIGUEL ROTH: 1940 DATES OF TREATMENT: 10/23/2021 to 12/18/2021 DIAGNOSIS: Prostate adenocarcinoma, initial PSA 8, biopsy Ivory score 3 + 4 = 7 (grade group 2), clinical stage T1c, N0, M0, stage IIB [T1-T2, N0, M0, PSA <20, GG 2] (AJCC 8th ed.), s/p TRUS Random biopsy, Patient elected observation and was found to have progression, PSA 08/2021 36.2. and repeat biopsy showing Ivory 7 (3+4) adenocarcinoma. AREA TREATED: Pelvis Prostate DELIVERED DOSE: Area: Pelvis Prostate 4,600 cGy in 23 fractions, 3 Maxwell, IMRT, 10MV with daily CBCT Area: Pelvis Prostate Boost 3,200 cGy in 16 fractions, 2 Maxwell, IMRT, 10MV with daily CBCT TOTAL: 7,800 cGy in 39 Fractions ELAPSED TIME: 56 days. CLINICAL SUMMARY: Patient completed a course of intensity modulated external beam treatment for adenocarcinoma of the prostate. Overall tolerance very good. He had some mild rectal and bladder changes as expected issues during treatment. The patient has planned post radiation follow up in 3-4 weeks with PSA. Staff Physician Denilson Kim M.D. / LINDA 22:25 PM documented in this encounter [facility] 12-18-2021 History of Present illness Narrative [facility] Radiation Oncology Department RADIATION ONCOLOGY - COMPLETION NOTE PATIENT: JOSÉ MIGUEL ROTH: 1940 DATES OF TREATMENT: 10/23/2021 to 12/19/2019 DIAGNOSIS: Prostate adenocarcinoma, initial PSA 8, biopsy Thayer score 3 + 4 = 7 (grade group 2), clinical stage T1c, N0, M0, stage IIB [T1-T2, N0, M0, PSA <20, GG 2] (AJCC 8th ed.), s/p TRUS Random biopsy, Patient elected observation and was found to have progression, PSA 08/2021 36.2. and repeat biopsy showing Ivory 7 (3+4) adenocarcinoma. AREA TREATED: Pelvis Prostate DELIVERED DOSE: Area: Pelvis Prostate 4,600 cGy in 23 fractions, 3 Maxwell, IMRT, 10MV with daily CBCT Area: Pelvis Prostate Boost 3,200 cGy in 16 fractions, 2 Maxwell, IMRT, 10MV with daily CBCT TOTAL: 7,800 cGy in 39 Fractions ELAPSED TIME: 56 days. CLINICAL SUMMARY: Patient completed a course of intensity modulated external beam treatment for adenocarcinoma of the prostate. Overall tolerance very good. The patient has planned post radiation follow up in 3-4 . Staff Physician Denilson Kim M.D. / LINDA 21:22 PM documented in this encounter [facility] 12-11-2021 History of Present illness Narrative Radiation Oncology - On Treatment Review (OTR) Note PATIENT NAME: José Miguel Roth Jr. PATIENT DIAGNOSIS: Prostate cancer. COURSE: definitive Current dose: 7000 cGy in 35 Planned dose: 7800 cGy in 39 fx SUBJECTIVE: No new concerns. PHYSICAL EXAM: 12/11/21 1358 BP: 130/78 Pulse: 80 Resp: 18 Temp: 36.2 C (97.1 F) SpO2: 99% Weight: 82.1 kg (181 lb) KPS: 100 General Appearance: Alert and oriented. No acute distress. IMAGING/LAB RESULTS: Hemoglobin (g/dL) Date Value 11/16/2021 12.9 11/09/2021 13.9 Hematocrit (%) Date Value 11/16/2021 40.8 11/09/2021 44.1 WBC (k/uL) Date Value 11/16/2021 4.84 11/09/2021 5.12 Platelet Count (k/uL) Date Value 11/16/2021 109 11/09/2021 102 PSA (ng/mL) Date Value 11/09/2021 0.16 09/05/2021 36.20 PSA. (no units) Date Value 10/21/2018 12.30 TOXICITY ASSESSMENT (CTC v4.0): Fatigue:grade 1 Radiation Dermatitis: grade 0 - No symptoms Diarrhea:grade 0 - No symptoms Proctitis: grade 0 - No symptoms Urinary frequency: grade 1 Dysuria: grade 0 - No symptoms Urinary incontinence: grade 0 (No symptoms) Urinary retention: grade 0 - No symptoms Treatment chart checked: Yes Patient treatment site reviewed and verified:Yes Port films reviewed and current:Yes Medications started: None ASSESSMENT/PLAN: Doing well. Chart and imaging reviewed. Continue radiation as outlined. He finishes this week. Follow-up care discussed. Yung Kim MD documented in this encounter [facility] 05-01-2012 History of Past i llness Narrative Problem Noted Date Resolved Date Stress hyperglycemia 05/01/2012 05/06/2012 Overview: Diet has been advanced , SSI and accuchecks Mechanically assisted ventilation 05/01/2012 05/02/2012 Overview: 05/01/2012 optimize MV settings current settings 60%, peep 8 WTE 05/02/2012 Extubated and doing well without acute resp distress Hypotension 05/01/2012 05/03/2012 Overview: 05/01/2012 titration of levophed for MAP 75-85 due to carotid stenosis fluid resuscitation as needed 05/02/2012 See cardiac insuff note Thrombocytopenia 05/01/2012 05/05/2012 Overview: resolving Pf4 negative. Post-operative pain 05/01/2012 05/06/2012 Overview: acceptable pain control with Percocet , ultram, lido patches ST elevation myocardial infa rction (STEMI) of true posterior wall 04/28/2012 05/05/2012 Overview: ST depressions in septal/anterior leads c/w posterior STEMI. TTE shows posterior wall motion abnormality. CKMB 54, Troponin T .37 on admission to [facility] Wide-complex tachycardia 04/28/2012 012 Overview: Presented to OSH 04/28/12 in setting acute IA with wide complex tachycardia SVT versus VT. Given adenosine x2 without effect, diltiazem bolus and infusion with no effect. Spontaneous conversion to NSR. Had short run of wide complex [facility] Pre-op evaluation 04/28/2012 05/01/2012 Overview: Preoperative evaluation for CABG. Not ReDo -Carotids: Ordered -Vein Mapping: Ordered -Bedside PFTs: Ordered -Formal TTE: Ordered -CXR: Completed documented as of this encounter (statuses as of 12/18/2021) [facility] History of Past illness Narrative* Problem Noted Date Resolved Date Stress hyperglycemia 05/01/2012 05/06/2012 Overview: Diet has been advanced , SSI and accuchecks Mechanically assisted ventilation 05/01/2012 05/02/2012 Overview: 05/01/2012 optimize MV settings current settings 60%, peep 8 WTE 05/02/2012 Extubated and doing well without acute resp distress Hypotension 05/01/2012 05/03/2012 Overview: 05/01/2012 titration of levophed for MAP 75-85 due to carotid stenosis fluid resuscitation as needed 05/02/2012 See cardiac insuff note Thrombocytopenia 05/01/2012 05/05/2012 Overview: resolving Pf4 negative. Post-operative pain 05/01/2012 05/06/2012 Overview: acceptable pain control with Percocet , ultram, lido patches ST elevation myocardial infa rction (STEMI) of true posterior wall 04/28/2012 05/05/2012 Overview: ST depressions in septal/anterior leads c/w posterior STEMI. TTE shows posterior wall motion abnormality. CKMB 54, Troponin T .37 on admission to [facility] Wide-complex tachycardia 04/28/2012 012 Overview: Presented to OSH 04/28/12 in setting acute IA with wide complex tachycardia SVT versus VT. Given adenosine x2 without effect, diltiazem bolus and infusion with no effect. Spontaneous conversion to NSR. Had short run of wide complex tachycardia upon arrival to [facility] from [facility]. Pre-op evaluation 04/28/2012 05/01/2012 Overview: Preoperative evaluation for CABG. Not ReDo -Carotids: Ordered -Vein Mapping: Ordered -Bedside PFTs: Ordered -Formal TTE: Ordered -CXR: Completed documented as of this encounter (statuses as of 12/21/2021) [facility] History of Past illness Narrative* Problem Noted Date Resolved Date Stress hyperglycemia 05/01/2012 05/06/2012 Overview: Diet has been advanced , SSI and accuchecks Mechanically assisted ventilation 05/01/2012 05/02/2012 Overview: 05/01/2012 optimize MV settings current settings 60%, peep 8 WTE 05/02/2012 Extubated and doing well without acute resp distress Hypotension 05/01/2012 05/03/2012 Overview: 05/01/2012 titration of levophed for MAP 75-85 due to carotid stenosis fluid resuscitation as needed 05/02/2012 See cardiac insuff note Thrombocytopenia 05/01/2012 05/05/2012 Overview: resolving Pf4 negative. Post-operative pain 05/01/2012 05/06/2012 Overview: acceptable pain control with Percocet , ultram, lido patches ST elevation myocardial infa rction (STEMI) of true posterior wall 04/28/2012 05/05/2012 Overview: ST depressions in septal/anterior leads c/w posterior STEMI. TTE shows posterior wall motion abnormality. CKMB 54, Troponin T .37 on admission to [facility] Wide-complex tachycardia 04/28/2012 012 Overview: Presented to OSH 04/28/12 in setting acute IA with wide complex tachycardia SVT versus VT. Given adenosine x2 without effect, diltiazem bolus and infusion with no effect. Spontaneous conversion to NSR. Had short run of wide complex tachycardia upon arrival to [facility] from [facility]. Pre-op evaluation 04/28/2012 05/01/2012 Overview: Preoperative evaluation for CABG. Not ReDo -Carotids: Ordered -Vein Mapping: Ordered -Bedside PFTs: Ordered -Formal TTE: Ordered -CXR: Completed documented as of this encounter (statuses as of 01/15/2022) [facility] History of Past illness Narrative* Problem Noted Date Resolved Date Stress hyperglycemia 05/01/2012 05/06/2012 Overview: Diet has been advanced , SSI and accuchecks Mechanically assisted ventilation 05/01/2012 05/02/2012 Overview: 05/01/2012 optimize MV settings current settings 60%, peep 8 WTE 05/02/2012 Extubated and doing well without acute resp distress Hypotension 05/01/2012 05/03/2012 Overview: 05/01/2012 titration of levophed for MAP 75-85 due to carotid stenosis fluid resuscitation as needed 05/02/2012 See cardiac insuff note Thrombocytopenia 05/01/2012 05/05/2012 Overview: resolving Pf4 negative. Post-operative pain 05/01/2012 05/06/2012 Overview: acceptable pain control with Percocet , ultram, lido patches ST elevation myocardial infa rction (STEMI) of true posterior wall 04/28/2012 05/05/2012 Overview: ST depressions in septal/anterior leads c/w posterior STEMI. TTE shows posterior wall motion abnormality. CKMB 54, Troponin T .37 on admission to [facility] Wide-complex tachycardia 04/28/2012 012 Overview: Presented to OSH 04/28/12 in setting acute IA with wide complex tachycardia SVT versus VT. Given adenosine x2 without effect, diltiazem bolus and infusion with no effect. Spontaneous conversion to NSR. Had short run of wide complex tachycardia upon arrival [facility] Pre[facility]op evaluation 04/28/2012 05/01/2012 Overview: Preoperative evaluation for CABG. Not ReDo -Carotids: Ordered -Vein Mapping: Ordered -Bedside PFTs: Ordered -Formal TTE: Ordered -CXR: Completed documented as of this encounter (statuses as of 01/18/2022) [facility]08-16-2012 History of Past illness Narrative* Problem Noted Date Resolved Date Stress hyperglycemia 05/01/2012 05/06/2012 Overview: Diet has been advanced , SSI and accuchecks Mechanically assisted ventilation 05/01/2012 05/02/2012 Overview: 05/01/2012 optimize MV settings current settings 60%, peep 8 WTE 05/02/2012 Extubated and doing well without acute resp distress Hypotension 05/01/2012 05/03/2012 Overview: 05/01/2012 titration of levophed for MAP 75-85 due to carotid stenosis fluid resuscitation as needed 05/02/2012 See cardiac insuff note Thrombocytopenia 05/01/2012 05/05/2012 Overview: resolving Pf4 negative. Post-operative pain 05/01/2012 05/06/2012 Overview: acceptable pain control with Percocet , ultram, lido patches ST elevation myocardial infa rction (STEMI) of true posterior wall 04/28/2012 05/05/2012 Overview: ST depressions in septal/anterior leads c/w posterior STEMI. TTE shows posterior wall motion abnormality. CKMB 54, Troponin T .37 on admission to [facility] Wide-complex tachycardia 04/28/2012 012 Overview: Presented to OSH 04/28/12 in setting acute IA with wide complex tachycardia SVT versus VT. Given adenosine x2 without effect, diltiazem bolus and infusion with no effect. Spontaneous conversion to NSR. Had short run of wide complex tachycardia upon arrival to [facility] Pre-op evaluation 04/28/2012 05/01/2012 Overview: Preoperative evaluation for CABG. Not ReDo -Carotids: Ordered -Vein Mapping: Ordered -Bedside PFTs: Ordered -Formal TTE: Ordered -CXR: Completed documented as of this encounter (statuses as of 02/06/2022) [facility]08-16-2012 History of Past illness Narrative* Problem Noted Date Resolved Date Stress hyperglycemia 05/01/2012 05/06/2012 Overview: Diet has been advanced , SSI and accuchecks Mechanically assisted ventilation 05/01/2012 05/02/2012 Overview: 05/01/2012 optimize MV settings current settings 60%, peep 8 WTE 05/02/2012 Extubated and doing well without acute resp distress Hypotension 05/01/2012 05/03/2012 Overview: 05/01/2012 titration of levophed for MAP 75-85 due to carotid stenosis fluid resuscitation as needed 05/02/2012 See cardiac insuff note Thrombocytopenia 05/01/2012 05/05/2012 Overview: resolving Pf4 negative. Post-operative pain 05/01/2012 05/06/2012 Overview: acceptable pain control with Percocet , ultram, lido patches ST elevation myocardial infa rction (STEMI) of true posterior wall 04/28/2012 05/05/2012 Overview: ST depressions in septal/anterior leads c/w posterior STEMI. TTE shows posterior wall motion abnormality. CKMB 54, Troponin T .37 on admission to [facility] Wide-complex tachycardia 04/28/2012 012 Overview: Presented to OSH 04/28/12 in setting acute IA with wide complex tachycardia SVT versus VT. Given adenosine x2 without effect, diltiazem bolus and infusion with no effect. Spontaneous conversion to NSR. Had short run of wide complex tachycardia upon arrival to [facility] from [facility]. Pre-op evaluation 04/28/2012 05/01/2012 Overview: Preoperative evaluation for CABG. Not ReDo -Carotids: Ordered -Vein Mapping: Ordered -Bedside PFTs: Ordered -Formal TTE: Ordered -CXR: Completed documented as of this encounter (statuses as of 04/26/2022) [facility]08-16-2012 History of Past illness Narrative* Problem Noted Date Resolved Date Stress hyperglycemia 05/01/2012 05/06/2012 Overview: Diet has been advanced , SSI and accuchecks Mechanically assisted ventilation 05/01/2012 05/02/2012 Overview: 05/01/2012 optimize MV settings current settings 60%, peep 8 WTE 05/02/2012 Extubated and doing well without acute resp distress Hypotension 05/01/2012 05/03/2012 Overview: 05/01/2012 titration of levophed for MAP 75-85 due to carotid stenosis fluid resuscitation as needed 05/02/2012 See cardiac insuff note Thrombocytopenia 05/01/2012 05/05/2012 Overview: resolving Pf4 negative. Post-operative pain 05/01/2012 05/06/2012 Overview: acceptable pain control with Percocet , ultram, lido patches ST elevation myocardial infa rction (STEMI) of true posterior wall 04/28/2012 05/05/2012 Overview: ST depressions in septal/anterior leads c/w posterior STEMI. TTE shows posterior wall motion abnormality. CKMB 54, Troponin T .37 on admission to [facility] Wide-complex tachycardia 04/28/2012 012 Overview: Presented to OSH 04/28/12 in setting acute IA with wide complex tachycardia SVT versus VT. Given adenosine x2 without effect, diltiazem bolus and infusion with no effect. Spontaneous conversion to NSR. Had short run of wide complex tachycardia upon arrival to [facility] Pre-op evaluation 04/28/2012 05/01/2012 Overview: Preoperative evaluation for CABG. Not ReDo -Carotids: Ordered -Vein Mapping: Ordered -Bedside PFTs: Ordered -Formal TTE: Ordered -CXR: Completed documented as of this encounter (statuses as of 05/08/2022) [facility]08-16-2012 History of Past illness Narrative* Problem Noted Date Resolved Date Stress hyperglycemia 05/01/2012 05/06/2012 Overview: Diet has been advanced , SSI and accuchecks Mechanically assisted ventilation 05/01/2012 05/02/2012 Overview: 05/01/2012 optimize MV settings current settings 60%, peep 8 WTE 05/02/2012 Extubated and doing well without acute resp distress Hypotension 05/01/2012 05/03/2012 Overview: 05/01/2012 titration of levophed for MAP 75-85 due to carotid stenosis fluid resuscitation as needed 05/02/2012 See cardiac insuff note Thrombocytopenia 05/01/2012 05/05/2012 Overview: resolving Pf4 negative. Post-operative pain 05/01/2012 05/06/2012 Overview: acceptable pain control with Percocet , ultram, lido patches ST elevation myocardial infa rction (STEMI) of true posterior wall 04/28/2012 05/05/2012 Overview: ST depressions in septal/anterior leads c/w posterior STEMI. TTE shows posterior wall motion abnormality. CKMB 54, Troponin T .37 on admission to [facility] Wide-complex tachycardia 04/28/2012 012 Overview: Presented to OSH 04/28/12 in setting acute IA with wide complex tachycardia SVT versus VT. Given adenosine x2 without effect, diltiazem bolus and infusion with no effect. Spontaneous conversion to NSR. Had short run of wide complex tachycardia upon arrival to [facility] from [facility]. Pre-op evaluation 04/28/2012 05/01/2012 Overview: Preoperative evaluation for CABG. Not ReDo -Carotids: Ordered -Vein Mapping: Ordered -Bedside PFTs: Ordered -Formal TTE: Ordered -CXR: Completed documented as of this encounter (statuses as of 06/06/2022) [facility]08-16-2012 History of Past illness Narrative* Problem Noted Date Resolved Date Stress hyperglycemia 05/01/2012 05/06/2012 Overview: Diet has been advanced , SSI and accuchecks Mechanically assisted ventilation 05/01/2012 05/02/2012 Overview: 05/01/2012 optimize MV settings current settings 60%, peep 8 WTE 05/02/2012 Extubated and doing well without acute resp distress Hypotension 05/01/2012 05/03/2012 Overview: 05/01/2012 titration of levophed for MAP 75-85 due to carotid stenosis fluid resuscitation as needed 05/02/2012 See cardiac insuff note Thrombocytopenia 05/01/2012 05/05/2012 Overview: resolving Pf4 negative. Post-operative pain 05/01/2012 05/06/2012 Overview: acceptable pain control with Percocet , ultram, lido patches ST elevation myocardial infa rction (STEMI) of true posterior wall 04/28/2012 05/05/2012 Overview: ST depressions in septal/anterior leads c/w posterior STEMI. TTE shows posterior wall motion abnormality. CKMB 54, Troponin T .37 on admission to [facility] Wide-complex tachycardia 04/28/2012 012 Overview: Presented to OSH 04/28/12 in setting acute IA with wide complex tachycardia SVT versus VT. Given adenosine x2 without effect, diltiazem bolus and infusion with no effect. Spontaneous conversion to NSR. Had short run of wide complex tachycardia upon arrival to [facility] Pre-op evaluation 04/28/2012 05/01/2012 Overview: Preoperative evaluation for CABG. Not ReDo -Carotids: Ordered -Vein Mapping: Ordered -Bedside PFTs: Ordered -Formal TTE: Ordered -CXR: Completed documented as of this encounter (statuses as of 06/06/2022) [facility]08-16-2012 History of Past illness Narrative* Problem Noted Date Resolved Date Stress hyperglycemia 05/01/2012 05/06/2012 Overview: Diet has been advanced , SSI and accuchecks Mechanically assisted ventilation 05/01/2012 05/02/2012 Overview: 05/01/2012 optimize MV settings current settings 60%, peep 8 WTE 05/02/2012 Extubated and doing well without acute resp distress Hypotension 05/01/2012 05/03/2012 Overview: 05/01/2012 titration of levophed for MAP 75-85 due to carotid stenosis fluid resuscitation as needed 05/02/2012 See cardiac insuff note Thrombocytopenia 05/01/2012 05/05/2012 Overview: resolving Pf4 negative. Post-operative pain 05/01/2012 05/06/2012 Overview: acceptable pain control with Percocet , ultram, lido patches ST elevation myocardial infa rction (STEMI) of true posterior wall 04/28/2012 05/05/2012 Overview: ST depressions in septal/anterior leads c/w posterior STEMI. TTE shows posterior wall motion abnormality. CKMB 54, Troponin T .37 on admission to [facility] Wide-complex tachycardia 04/28/2012 012 Overview: Presented to OSH 04/28/12 in setting acute IA with wide complex tachycardia SVT versus VT. Given adenosine x2 without effect, diltiazem bolus and infusion with no effect. Spontaneous conversion to NSR. Had short run of wide complex tachycardia upon arrival to [facility] from [facility]. Pre-op evaluation 04/28/2012 05/01/2012 Overview: Preoperative evaluation for CABG. Not ReDo -Carotids: Ordered -Vein Mapping: Ordered -Bedside PFTs: Ordered -Formal TTE: Ordered -CXR: Completed documented as of this encounter (statuses as of 07/31/2022) [facility]08-16-2012 History of Past illness Narrative* Problem Noted Date Resolved Date Stress hyperglycemia 05/01/2012 05/06/2012 Overview: Diet has been advanced , SSI and accuchecks Mechanically assisted ventilation 05/01/2012 05/02/2012 Overview: 05/01/2012 optimize MV settings current settings 60%, peep 8 WTE 05/02/2012 Extubated and doing well without acute resp distress Hypotension 05/01/2012 05/03/2012 Overview: 05/01/2012 titration of levophed for MAP 75-85 due to carotid stenosis fluid resuscitation as needed 05/02/2012 See cardiac insuff note Thrombocytopenia 05/01/2012 05/05/2012 Overview: resolving Pf4 negative. Post-operative pain 05/01/2012 05/06/2012 Overview: acceptable pain control with Percocet , ultram, lido patches ST elevation myocardial infa rction (STEMI) of true posterior wall 04/28/2012 05/05/2012 Overview: ST depressions in septal/anterior leads c/w posterior STEMI. TTE shows posterior wall motion abnormality. CKMB 54, Troponin T .37 on admission to [facility] Wide-complex tachycardia 04/28/2012 012 Overview: Presented to OSH 04/28/12 in setting acute IA with wide complex tachycardia SVT versus VT. Given adenosine x2 without effect, diltiazem bolus and infusion with no effect. Spontaneous conversion to NSR. Had short run of wide complex tachycardia upon arrival to [facility] from [facility]. Pre-op evaluation 04/28/2012 05/01/2012 Overview: Preoperative evaluation for CABG. Not ReDo -Carotids: Ordered -Vein Mapping: Ordered -Bedside PFTs: Ordered -Formal TTE: Ordered -CXR: Completed documented as of this encounter (statuses as of 08/01/2022) [facility]08-16-2012 History of Past illness Narrative* Problem Noted Date Resolved Date Stress hyperglycemia 05/01/2012 05/06/2012 Overview: Diet has been advanced , SSI and accuchecks Mechanically assisted ventilation 05/01/2012 05/02/2012 Overview: 05/01/2012 optimize MV settings current settings 60%, peep 8 WTE 05/02/2012 Extubated and doing well without acute resp distress Hypotension 05/01/2012 05/03/2012 Overview: 05/01/2012 titration of levophed for MAP 75-85 due to carotid stenosis fluid resuscitation as needed 05/02/2012 See cardiac insuff note Thrombocytopenia 05/01/2012 05/05/2012 Overview: resolving Pf4 negative. Post-operative pain 05/01/2012 05/06/2012 Overview: acceptable pain control with Percocet , ultram, lido patches ST elevation myocardial infa rction (STEMI) of true posterior wall 04/28/2012 05/05/2012 Overview: ST depressions in septal/anterior leads c/w posterior STEMI. TTE shows posterior wall motion abnormality. CKMB 54, Troponin T .37 on admission to [facility] Wide-complex tachycardia 04/28/2012 012 Overview: Presented to OSH 04/28/12 in setting acute IA with wide complex tachycardia SVT versus VT. Given adenosine x2 without effect, diltiazem bolus and infusion with no effect. Spontaneous conversion to NSR. Had short run of wide complex tachycardia upon arrival to [facility] from [facility]. Pre-op evaluation 04/28/2012 05/01/2012 Overview: Preoperative evaluation for CABG. Not ReDo -Carotids: Ordered -Vein Mapping: Ordered -Bedside PFTs: Ordered -Formal TTE: Ordered -CXR: Completed documented as of this encounter (statuses as of 08/03/2022) [facility]08-16-2012 History of Past illness Narrative* Problem Noted Date Resolved Date Stress hyperglycemia 05/01/2012 05/06/2012 Overview: Diet has been advanced , SSI and accuchecks Mechanically assisted ventilation 05/01/2012 05/02/2012 Overview: 05/01/2012 optimize MV settings current settings 60%, peep 8 WTE 05/02/2012 Extubated and doing well without acute resp distress Hypotension 05/01/2012 05/03/2012 Overview: 05/01/2012 titration of levophed for MAP 75-85 due to carotid stenosis fluid resuscitation as needed 05/02/2012 See cardiac insuff note Thrombocytopenia 05/01/2012 05/05/2012 Overview: resolving Pf4 negative. Post-operative pain 05/01/2012 05/06/2012 Overview: acceptable pain control with Percocet , ultram, lido patches ST elevation myocardial infa rction (STEMI) of true posterior wall 04/28/2012 05/05/2012 Overview: ST depressions in septal/anterior leads c/w posterior STEMI. TTE shows posterior wall motion abnormality. CKMB 54, Troponin T .37 on admission to [facility] Wide-complex tachycardia 04/28/2012 012 Overview: Presented to OSH 04/28/12 in setting acute IA with wide complex tachycardia SVT versus VT. Given adenosine x2 without effect, diltiazem bolus and infusion with no effect. Spontaneous conversion to NSR. Had short run of wide complex tachycardia upon arrival to [facility] [place] from [facility]. Pre-op evaluation 04/28/2012 05/01/2012 Overview: Preoperative evaluation for CABG. Not ReDo -Carotids: Ordered -Vein Mapping: Ordered -Bedside PFTs: Ordered -Formal TTE: Ordered -CXR: Completed documented as of this encounter (statuses as of 08/07/2022) [facility]08-16-2012 History of Past illness Narrative* Problem Noted Date Resolved Date Stress hyperglycemia 05/01/2012 05/06/2012 Overview: Diet has been advanced , SSI and accuchecks Mechanically assisted ventilation 05/01/2012 05/02/2012 Overview: 05/01/2012 optimize MV settings current settings 60%, peep 8 WTE 05/02/2012 Extubated and doing well without acute resp distress Hypotension 05/01/2012 05/03/2012 Overview: 05/01/2012 titration of levophed for MAP 75-85 due to carotid stenosis fluid resuscitation as needed 05/02/2012 See cardiac insuff note Thrombocytopenia 05/01/2012 05/05/2012 Overview: resolving Pf4 negative. Post-operative pain 05/01/2012 05/06/2012 Overview: acceptable pain control with Percocet , ultram, lido patches ST elevation myocardial infa rction (STEMI) of true posterior wall 04/28/2012 05/05/2012 Overview: ST depressions in septal/anterior leads c/w posterior STEMI. TTE shows posterior wall motion abnormality. CKMB 54, Troponin T .37 on admission to [facility] Wide-complex tachycardia 04/28/2012 012 Overview: Presented to OSH 04/28/12 in setting acute IA with wide complex tachycardia SVT versus VT. Given adenosine x2 without effect, diltiazem bolus and infusion with no effect. Spontaneous conversion to NSR. Had short run of wide complex tachycardia upon arrival to [facility] [place] from [facility]. Pre-op evaluation 04/28/2012 05/01/2012 Overview: Preoperative evaluation for CABG. Not ReDo -Carotids: Ordered -Vein Mapping: Ordered -Bedside PFTs: Ordered -Formal TTE: Ordered -CXR: Completed documented as of this encounter (statuses as of 08/17/2022) [facility]08-16-2012 History of Past illness Narrative* Problem Noted Date Resolved Date Stress hyperglycemia 05/01/2012 05/06/2012 Overview: Diet has been advanced , SSI and accuchecks Mechanically assisted ventilation 05/01/2012 05/02/2012 Overview: 05/01/2012 optimize MV settings current settings 60%, peep 8 WTE 05/02/2012 Extubated and doing well without acute resp distress Hypotension 05/01/2012 05/03/2012 Overview: 05/01/2012 titration of levophed for MAP 75-85 due to carotid stenosis fluid resuscitation as needed 05/02/2012 See cardiac insuff note Thrombocytopenia 05/01/2012 05/05/2012 Overview: resolving Pf4 negative. Post-operative pain 05/01/2012 05/06/2012 Overview: acceptable pain control with Percocet , ultram, lido patches ST elevation myocardial infa rction (STEMI) of true posterior wall 04/28/2012 05/05/2012 Overview: ST depressions in septal/anterior leads c/w posterior STEMI. TTE shows posterior wall motion abnormality. CKMB 54, Troponin T .37 on admission to [facility] Wide-complex tachycardia 04/28/2012 012 Overview: Presented to OSH 04/28/12 in setting acute IA with wide complex tachycardia SVT versus VT. Given adenosine x2 without effect, diltiazem bolus and infusion with no effect. Spontaneous conversion to NSR. Had short run of wide complex tachycardia upon arrival to [facility] [place] from [facility]. Pre-op evaluation 04/28/2012 05/01/2012 Overview: Preoperative evaluation for CABG. Not ReDo -Carotids: Ordered -Vein Mapping: Ordered -Bedside PFTs: Ordered -Formal TTE: Ordered -CXR: Completed documented as of this encounter (statuses as of 09/03/2022) [facility]08-16-2012 History of Past illness Narrative* Problem Noted Date Resolved Date Stress hyperglycemia 05/01/2012 05/06/2012 Overview: Diet has been advanced , SSI and accuchecks Mechanically assisted ventilation 05/01/2012 05/02/2012 Overview: 05/01/2012 optimize MV settings current settings 60%, peep 8 WTE 05/02/2012 Extubated and doing well without acute resp distress Hypotension 05/01/2012 05/03/2012 Overview: 05/01/2012 titration of levophed for MAP 75-85 due to carotid stenosis fluid resuscitation as needed 05/02/2012 See cardiac insuff note Thrombocytopenia 05/01/2012 05/05/2012 Overview: resolving Pf4 negative. Post-operative pain 05/01/2012 05/06/2012 Overview: acceptable pain control with Percocet , ultram, lido patches ST elevation myocardial infa rction (STEMI) of true posterior wall 04/28/2012 05/05/2012 Overview: ST depressions in septal/anterior leads c/w posterior STEMI. TTE shows posterior wall motion abnormality. CKMB 54, Troponin T .37 on admission to [facility] Wide-complex tachycardia 04/28/2012 012 Overview: Presented to OSH 04/28/12 in setting acute IA with wide complex tachycardia SVT versus VT. Given adenosine x2 without effect, diltiazem bolus and infusion with no effect. Spontaneous conversion to NSR. Had short run of wide complex tachycardia upon arrival to [facility] from [facility]. Pre-op evaluation 04/28/2012 05/01/2012 Overview: Preoperative evaluation for CABG. Not ReDo -Carotids: Ordered -Vein Mapping: Ordered -Bedside PFTs: Ordered -Formal TTE: Ordered -CXR: Completed documented as of this encounter (statuses as of 09/07/2022) [facility]08-16-2012 History of Past illness Narrative* Problem Noted Date Resolved Date Stress hyperglycemia 05/01/2012 05/06/2012 Overview: Diet has been advanced , SSI and accuchecks Mechanically assisted ventilation 05/01/2012 05/02/2012 Overview: 05/01/2012 optimize MV settings current settings 60%, peep 8 WTE 05/02/2012 Extubated and doing well without acute resp distress Hypotension 05/01/2012 05/03/2012 Overview: 05/01/2012 titration of levophed for MAP 75-85 due to carotid stenosis fluid resuscitation as needed 05/02/2012 See cardiac insuff note Thrombocytopenia 05/01/2012 05/05/2012 Overview: resolving Pf4 negative. Post-operative pain 05/01/2012 05/06/2012 Overview: acceptable pain control with Percocet , ultram, lido patches ST elevation myocardial infa rction (STEMI) of true posterior wall 04/28/2012 05/05/2012 Overview: ST depressions in septal/anterior leads c/w posterior STEMI. TTE shows posterior wall motion abnormality. CKMB 54, Troponin T .37 on admission to [facility] Wide-complex tachycardia 04/28/2012 012 Overview: Presented to OSH 04/28/12 in setting acute IA with wide complex tachycardia SVT versus VT. Given adenosine x2 without effect, diltiazem bolus and infusion with no effect. Spontaneous conversion to NSR. Had short run of wide complex tachycardia upon arrival to [facility] from [facility]. Pre-op evaluation 04/28/2012 05/01/2012 Overview: Preoperative evaluation for CABG. Not ReDo -Carotids: Ordered -Vein Mapping: Ordered -Bedside PFTs: Ordered -Formal TTE: Ordered -CXR: Completed documented as of this encounter (statuses as of 10/08/2022) [facility]08-16-2012 History of Past illness Narrative* Problem Noted Date Resolved Date Stress hyperglycemia 05/01/2012 05/06/2012 Overview: Diet has been advanced , SSI and accuchecks Mechanically assisted ventilation 05/01/2012 05/02/2012 Overview: 05/01/2012 optimize MV settings current settings 60%, peep 8 WTE 05/02/2012 Extubated and doing well without acute resp distress Hypotension 05/01/2012 05/03/2012 Overview: 05/01/2012 titration of levophed for MAP 75-85 due to carotid stenosis fluid resuscitation as needed 05/02/2012 See cardiac insuff note Thrombocytopenia 05/01/2012 05/05/2012 Overview: resolving Pf4 negative. Post-operative pain 05/01/2012 05/06/2012 Overview: acceptable pain control with Percocet , ultram, lido patches ST elevation myocardial infa rction (STEMI) of true posterior wall 04/28/2012 05/05/2012 Overview: ST depressions in septal/anterior leads c/w posterior STEMI. TTE shows posterior wall motion abnormality. CKMB 54, Troponin T .37 on admission to [facility] Wide-complex tachycardia 04/28/2012 012 Overview: Presented to OSH 04/28/12 in setting acute IA with wide complex tachycardia SVT versus VT. Given adenosine x2 without effect, diltiazem bolus and infusion with no effect. Spontaneous conversion to NSR. Had short run of wide complex tachycardia upon arrival to [facility] from [facility]. Pre-op evaluation 04/28/2012 05/01/2012 Overview: Preoperative evaluation for CABG. Not ReDo -Carotids: Ordered -Vein Mapping: Ordered -Bedside PFTs: Ordered -Formal TTE: Ordered -CXR: Completed documented as of this encounter (statuses as of 10/26/2022) [facility]08-16-2012 History of Past illness Narrative* Problem Noted Date Resolved Date Stress hyperglycemia 05/01/2012 05/06/2012 Overview: Diet has been advanced , SSI and accuchecks Mechanically assisted ventilation 05/01/2012 05/02/2012 Overview: 05/01/2012 optimize MV settings current settings 60%, peep 8 WTE 05/02/2012 Extubated and doing well without acute resp distress Hypotension 05/01/2012 05/03/2012 Overview: 05/01/2012 titration of levophed for MAP 75-85 due to carotid stenosis fluid resuscitation as needed 05/02/2012 See cardiac insuff note Thrombocytopenia 05/01/2012 05/05/2012 Overview: resolving Pf4 negative. Post-operative pain 05/01/2012 05/06/2012 Overview: acceptable pain control with Percocet , ultram, lido patches ST elevation myocardial infa rction (STEMI) of true posterior wall 04/28/2012 05/05/2012 Overview: ST depressions in septal/anterior leads c/w posterior STEMI. TTE shows posterior wall motion abnormality. CKMB 54, Troponin T .37 on admission to [facility] Wide-complex tachycardia 04/28/2012 012 Overview: Presented to OSH 04/28/12 in setting acute IA with wide complex tachycardia SVT versus VT. Given adenosine x2 without effect, diltiazem bolus and infusion with no effect. Spontaneous conversion to NSR. Had short run of wide complex tachycardia upon arrival to [facility] from CICU. Pre-op evaluation 04/28/2012 05/01/2012 Overview: Preoperative evaluation for CABG. Not ReDo -Carotids: Ordered -Vein Mapping: Ordered -Bedside PFTs: Ordered -Formal TTE: Ordered -CXR: Completed documented as of this encounter (statuses as of 10/26/2022) [facility]08-16-2012 History of Past illness Narrative* Problem Noted Date Resolved Date Stress hyperglycemia 05/01/2012 05/06/2012 Overview: Diet has been advanced , SSI and accuchecks Mechanically assisted ventilation 05/01/2012 05/02/2012 Overview: 05/01/2012 optimize MV settings current settings 60%, peep 8 WTE 05/02/2012 Extubated and doing well without acute resp distress Hypotension 05/01/2012 05/03/2012 Overview: 05/01/2012 titration of levophed for MAP 75-85 due to carotid stenosis fluid resuscitation as needed 05/02/2012 See cardiac insuff note Thrombocytopenia 05/01/2012 05/05/2012 Overview: resolving Pf4 negative. Post-operative pain 05/01/2012 05/06/2012 Overview: acceptable pain control with Percocet , ultram, lido patches ST elevation myocardial infa rction (STEMI) of true posterior wall 04/28/2012 05/05/2012 Overview: ST depressions in septal/anterior leads c/w posterior STEMI. TTE shows posterior wall motion abnormality. CKMB 54, Troponin T .37 on admission to [facility] Wide-complex tachycardia 04/28/2012 012 Overview: Presented to OSH 04/28/12 in setting acute IA with wide complex tachycardia SVT versus VT. Given adenosine x2 without effect, diltiazem bolus and infusion with no effect. Spontaneous conversion to NSR. Had short run of wide complex tachycardia upon arrival to [facility] from CICU. Pre-op evaluation 04/28/2012 05/01/2012 Overview: Preoperative evaluation for CABG. Not ReDo -Carotids: Ordered -Vein Mapping: Ordered -Bedside PFTs: Ordered -Formal TTE: Ordered -CXR: Completed documented as of this encounter (statuses as of 10/31/2022) [facility]08-16-2012 History of Past illness Narrative* Problem Noted Date Resolved Date Stress hyperglycemia 05/01/2012 05/06/2012 Overview: Diet has been advanced , SSI and accuchecks Mechanically assisted ventilation 05/01/2012 05/02/2012 Overview: 05/01/2012 optimize MV settings current settings 60%, peep 8 WTE 05/02/2012 Extubated and doing well without acute resp distress Hypotension 05/01/2012 05/03/2012 Overview: 05/01/2012 titration of levophed for MAP 75-85 due to carotid stenosis fluid resuscitation as needed 05/02/2012 See cardiac insuff note Thrombocytopenia 05/01/2012 05/05/2012 Overview: resolving Pf4 negative. Post-operative pain 05/01/2012 05/06/2012 Overview: acceptable pain control with Percocet , ultram, lido patches ST elevation myocardial infa rction (STEMI) of true posterior wall 04/28/2012 05/05/2012 Overview: ST depressions in septal/anterior leads c/w posterior STEMI. TTE shows posterior wall motion abnormality. CKMB 54, Troponin T .37 on admission to [facility] Wide-complex tachycardia 04/28/2012 012 Overview: Presented to OSH 04/28/12 in setting acute IA with wide complex tachycardia SVT versus VT. Given adenosine x2 without effect, diltiazem bolus and infusion with no effect. Spontaneous conversion to NSR. Had short run of wide complex tachycardia upon arrival to [facility] from CICU. Pre-op evaluation 04/28/2012 05/01/2012 Overview: Preoperative evaluation for CABG. Not ReDo -Carotids: Ordered -Vein Mapping: Ordered -Bedside PFTs: Ordered -Formal TTE: Ordered -CXR: Completed documented as of this encounter (statuses as of 11/02/2022) [facility]08-16-2012 History of Past illness Narrative* Problem Noted Date Resolved Date Stress hyperglycemia 05/01/2012 05/06/2012 Overview: Diet has been advanced , SSI and accuchecks Mechanically assisted ventilation 05/01/2012 05/02/2012 Overview: 05/01/2012 optimize MV settings current settings 60%, peep 8 WTE 05/02/2012 Extubated and doing well without acute resp distress Hypotension 05/01/2012 05/03/2012 Overview: 05/01/2012 titration of levophed for MAP 75-85 due to carotid stenosis fluid resuscitation as needed 05/02/2012 See cardiac insuff note Thrombocytopenia 05/01/2012 05/05/2012 Overview: resolving Pf4 negative. Post-operative pain 05/01/2012 05/06/2012 Overview: acceptable pain control with Percocet , ultram, lido patches ST elevation myocardial infa rction (STEMI) of true posterior wall 04/28/2012 05/05/2012 Overview: ST depressions in septal/anterior leads c/w posterior STEMI. TTE shows posterior wall motion abnormality. CKMB 54, Troponin T .37 on admission to [facility] Wide-complex tachycardia 04/28/2012 012 Overview: Presented to OSH 04/28/12 in setting acute IA with wide complex tachycardia SVT versus VT. Given adenosine x2 without effect, diltiazem bolus and infusion with no effect. Spontaneous conversion to NSR. Had short run of wide complex tachycardia upon arrival to [facility] from CICU. Pre-op evaluation 04/28/2012 05/01/2012 Overview: Preoperative evaluation for CABG. Not ReDo -Carotids: Ordered -Vein Mapping: Ordered -Bedside PFTs: Ordered -Formal TTE: Ordered -CXR: Completed documented as of this encounter (statuses as of 11/07/2022) [facility]08-16-2012 History of Past illness Narrative* Problem Noted Date Resolved Date Stress hyperglycemia 05/01/2012 05/06/2012 Overview: Diet has been advanced , SSI and accuchecks Mechanically assisted ventilation 05/01/2012 05/02/2012 Overview: 05/01/2012 optimize MV settings current settings 60%, peep 8 WTE 05/02/2012 Extubated and doing well without acute resp distress Hypotension 05/01/2012 05/03/2012 Overview: 05/01/2012 titration of levophed for MAP 75-85 due to carotid stenosis fluid resuscitation as needed 05/02/2012 See cardiac insuff note Thrombocytopenia 05/01/2012 05/05/2012 Overview: resolving Pf4 negative. Post-operative pain 05/01/2012 05/06/2012 Overview: acceptable pain control with Percocet , ultram, lido patches ST elevation myocardial infa rction (STEMI) of true posterior wall 04/28/2012 05/05/2012 Overview: ST depressions in septal/anterior leads c/w posterior STEMI. TTE shows posterior wall motion abnormality. CKMB 54, Troponin T .37 on admission to [facility] Wide-complex tachycardia 04/28/2012 012 Overview: Presented to OSH 04/28/12 in setting acute IA with wide complex tachycardia SVT versus VT. Given adenosine x2 without effect, diltiazem bolus and infusion with no effect. Spontaneous conversion to NSR. Had short run of wide complex tachycardia upon arrival to [facility] from CICU. Pre-op evaluation 04/28/2012 05/01/2012 Overview: Preoperative evaluation for CABG. Not ReDo -Carotids: Ordered -Vein Mapping: Ordered -Bedside PFTs: Ordered -Formal TTE: Ordered -CXR: Completed documented as of this encounter (statuses as of 11/29/2022) [facility]08-16-2012 History of Past illness Narrative* Problem Noted Date Resolved Date Stress hyperglycemia 05/01/2012 05/06/2012 Overview: Diet has been advanced , SSI and accuchecks Mechanically assisted ventilation 05/01/2012 05/02/2012 Overview: 05/01/2012 optimize MV settings current settings 60%, peep 8 WTE 05/02/2012 Extubated and doing well without acute resp distress Hypotension 05/01/2012 05/03/2012 Overview: 05/01/2012 titration of levophed for MAP 75-85 due to carotid stenosis fluid resuscitation as needed 05/02/2012 See cardiac insuff note Thrombocytopenia 05/01/2012 05/05/2012 Overview: resolving Pf4 negative. Post-operative pain 05/01/2012 05/06/2012 Overview: acceptable pain control with Percocet , ultram, lido patches ST elevation myocardial infa rction (STEMI) of true posterior wall 04/28/2012 05/05/2012 Overview: ST depressions in septal/anterior leads c/w posterior STEMI. TTE shows posterior wall motion abnormality. CKMB 54, Troponin T .37 on admission to [facility] Wide-complex tachycardia 04/28/2012 012 Overview: Presented to OSH 04/28/12 in setting acute IA with wide complex tachycardia SVT versus VT. Given adenosine x2 without effect, diltiazem bolus and infusion with no effect. Spontaneous conversion to NSR. Had short run of wide complex tachycardia upon arrival to [facility] from CICU. Pre-op evaluation 04/28/2012 05/01/2012 Overview: Preoperative evaluation for CABG. Not ReDo -Carotids: Ordered -Vein Mapping: Ordered -Bedside PFTs: Ordered -Formal TTE: Ordered -CXR: Completed documented as of this encounter (statuses as of 11/30/2022) [facility]08-16-2012 History of Past illness Narrative* Problem Noted Date Resolved Date Stress hyperglycemia 05/01/2012 05/06/2012 Overview: Diet has been advanced , SSI and accuchecks Mechanically assisted ventilation 05/01/2012 05/02/2012 Overview: 05/01/2012 optimize MV settings current settings 60%, peep 8 WTE 05/02/2012 Extubated and doing well without acute resp distress Hypotension 05/01/2012 05/03/2012 Overview: 05/01/2012 titration of levophed for MAP 75-85 due to carotid stenosis fluid resuscitation as needed 05/02/2012 See cardiac insuff note Thrombocytopenia 05/01/2012 05/05/2012 Overview: resolving Pf4 negative. Post-operative pain 05/01/2012 05/06/2012 Overview: acceptable pain control with Percocet , ultram, lido patches ST elevation myocardial infa rction (STEMI) of true posterior wall 04/28/2012 05/05/2012 Overview: ST depressions in septal/anterior leads c/w posterior STEMI. TTE shows posterior wall motion abnormality. CKMB 54, Troponin T .37 on admission to [facility] Wide-complex tachycardia 04/28/2012 012 Overview: Presented to OSH 04/28/12 in setting acute IA with wide complex tachycardia SVT versus VT. Given adenosine x2 without effect, diltiazem bolus and infusion with no effect. Spontaneous conversion to NSR. Had short run of wide complex tachycardia upon arrival to [facility] from CICU. Pre-op evaluation 04/28/2012 05/01/2012 Overview: Preoperative evaluation for CABG. Not ReDo -Carotids: Ordered -Vein Mapping: Ordered -Bedside PFTs: Ordered -Formal TTE: Ordered -CXR: Completed documented as of this encounter (statuses as of 12/03/2022) [facility]08-16-2012 History of Past illness Narrative* Problem Noted Date Resolved Date Stress hyperglycemia 05/01/2012 05/06/2012 Overview: Diet has been advanced , SSI and accuchecks Mechanically assisted ventilation 05/01/2012 05/02/2012 Overview: 05/01/2012 optimize MV settings current settings 60%, peep 8 WTE 05/02/2012 Extubated and doing well without acute resp distress Hypotension 05/01/2012 05/03/2012 Overview: 05/01/2012 titration of levophed for MAP 75-85 due to carotid stenosis fluid resuscitation as needed 05/02/2012 See cardiac insuff note Thrombocytopenia 05/01/2012 05/05/2012 Overview: resolving Pf4 negative. Post-operative pain 05/01/2012 05/06/2012 Overview: acceptable pain control with Percocet , ultram, lido patches ST elevation myocardial infa rction (STEMI) of true posterior wall 04/28/2012 05/05/2012 Overview: ST depressions in septal/anterior leads c/w posterior STEMI. TTE shows posterior wall motion abnormality. CKMB 54, Troponin T .37 on admission to [facility] Wide-complex tachycardia 04/28/2012 012 Overview: Presented to OSH 04/28/12 in setting acute IA with wide complex tachycardia SVT versus VT. Given adenosine x2 without effect, diltiazem bolus and infusion with no effect. Spontaneous conversion to NSR. Had short run of wide complex tachycardia upon arrival to [facility] from CICU. Pre-op evaluation 04/28/2012 05/01/2012 Overview: Preoperative evaluation for CABG. Not ReDo -Carotids: Ordered -Vein Mapping: Ordered -Bedside PFTs: Ordered -Formal TTE: Ordered -CXR: Completed documented as of this encounter (statuses as of 02/21/2023) [facility]08-16-2012 History of Past illness Narrative* Problem Noted Date Diagnosed Date Resolved Date Stress hyperglycemia 05/01/2012 012 Overview: Diet has been advanced , SSI and accuchecks Mechanically assisted ventilation 05/01/2012 05/02/2012 Overview: 05/01/2012 optimize MV settings current settings 60%, peep 8 WTE 05/02/2012 Extubated and doing well without acute resp distress Hypotension 05/01/2012 05/03/2012 Overview: 05/01/2012 titration of levophed for MAP 75-85 due to carotid stenosis fluid resuscitation as needed 05/02/2012 See cardiac insuff note Thrombocytopenia 05/01/2012 05/05/2012 Overview: resolving Pf4 negative. Post-operative pain 05/01/2012 05/06/20 12 Overview: acceptable pain control with Percocet , ultram, lido patches ST elevation myocardial infa rction (STEMI) of true posterior wall 04/28/2012 05/05/2012 Overview: ST depressions in septal/anterior leads c/w posterior STEMI. TTE shows posterior wall motion abnormality. CKMB 54, Troponin T .37 on admission to [facility] Wide-complex tachycardia 04/28/2012 Overview: Presented to OSH 04/28/12 in setting acute IA with wide complex tachycardia SVT versus VT. Given adenosine x2 without effect, diltiazem bolus and infusion with no effect. Spontaneous conversion to NSR. Had short run of wide complex tachycardia [facility] 04/28/2012 05/01/2012 Overview: Preoperative evaluation for CABG. Not ReDo -Carotids: Ordered -Vein Mapping: Ordered -Bedside PFTs: Ordered -Formal TTE: Ordered -CXR: Completed documented as of this encounter (statuses as of 04/27/2023) [facility]08-16-2012 History of Past illness Narrative* Problem Noted Date Diagnosed Date Resolved Date Stress hyperglycemia 05/01/2012 012 Overview: Diet has been advanced , SSI and accuchecks Mechanically assisted ventilation 05/01/2012 05/02/2012 Overview: 05/01/2012 optimize MV settings current settings 60%, peep 8 WTE 05/02/2012 Extubated and doing well without acute resp distress Hypotension 05/01/2012 05/03/2012 Overview: 05/01/2012 titration of levophed for MAP 75-85 due to carotid stenosis fluid resuscitation as needed 05/02/2012 See cardiac insuff note Thrombocytopenia 05/01/2012 05/05/2012 Overview: resolving Pf4 negative. Post-operative pain 05/01/2012 05/06/20 12 Overview: acceptable pain control with Percocet , ultram, lido patches ST elevation myocardial infa rction (STEMI) of true posterior wall 04/28/2012 05/05/2012 Overview: ST depressions in septal/anterior leads c/w posterior STEMI. TTE shows posterior wall motion abnormality. CKMB 54, Troponin T .37 on admission to [facility] Wide-complex tachycardia 04/28/2012 Overview: Presented to OSH 04/28/12 in setting acute IA with wide complex tachycardia SVT versus VT. Given adenosine x2 without effect, diltiazem bolus and infusion with no effect. Spontaneous conversion to NSR. Had short run of wide complex tachycardia upon arrival to [facility] from CICU. Pre-op evaluation 04/28/2012 05/01/2012 Overview: Preoperative evaluation for CABG. Not ReDo -Carotids: Ordered -Vein Mapping: Ordered -Bedside PFTs: Ordered -Formal TTE: Ordered -CXR: Completed documented as of this encounter (statuses as of 05/09/2023) [facility]08-16-2012 History of Past illness Narrative* Problem Noted Date Diagnosed Date Resolved Date Stress hyperglycemia 05/01/2012 012 Overview: Diet has been advanced , SSI and accuchecks Mechanically assisted ventilation 05/01/2012 05/02/2012 Overview: 05/01/2012 optimize MV settings current settings 60%, peep 8 WTE 05/02/2012 Extubated and doing well without acute resp distress Hypotension 05/01/2012 05/03/2012 Overview: 05/01/2012 titration of levophed for MAP 75-85 due to carotid stenosis fluid resuscitation as needed 05/02/2012 See cardiac insuff note Thrombocytopenia 05/01/2012 05/05/2012 Overview: resolving Pf4 negative. Post-operative pain 05/01/2012 05/06/20 12 Overview: acceptable pain control with Percocet , ultram, lido patches ST elevation myocardial infa rction (STEMI) of true posterior wall 04/28/2012 05/05/2012 Overview: ST depressions in septal/anterior leads c/w posterior STEMI. TTE shows posterior wall motion abnormality. CKMB 54, Troponin T .37 on admission to [facility] Wide-complex tachycardia 04/28/2012 Overview: Presented to OSH 04/28/12 in setting acute IA with wide complex tachycardia SVT versus VT. Given adenosine x2 without effect, diltiazem bolus and infusion with no effect. Spontaneous conversion to NSR. Had short run of wide complex tachycardia upon arrival to [facility] Pre-op evaluation 04/28/2012 05/01/2012 Overview: Preoperative evaluation for CABG. Not ReDo -Carotids: Ordered -Vein Mapping: Ordered -Bedside PFTs: Ordered -Formal TTE: Ordered -CXR: Completed documented as of this encounter (statuses as of 08/23/2023) [facility]08-[facility]-2012 History of Past illness Narrative* Problem Noted Date Diagnosed Date Resolved Date Stress hyperglycemia 05/01/2012 012 Overview: Diet has been advanced , SSI and accuchecks Mechanically assisted ventilation 05/01/2012 05/02/2012 Overview: 05/01/2012 optimize MV settings current settings 60%, peep 8 WTE 05/02/2012 Extubated and doing well without acute resp distress Hypotension 05/01/2012 05/03/2012 Overview: 05/01/2012 titration of levophed for MAP 75-85 due to carotid stenosis fluid resuscitation as needed 05/02/2012 See cardiac insuff note Thrombocytopenia 05/01/2012 05/05/2012 Overview: resolving Pf4 negative. Post-operative pain 05/01/2012 05/06/20 12 Overview: acceptable pain control with Percocet , ultram, lido patches ST elevation myocardial infa rction (STEMI) of true posterior wall 04/28/2012 05/05/2012 Overview: ST depressions in septal/anterior leads c/w posterior STEMI. TTE shows posterior wall motion abnormality. CKMB 54, Troponin T .37 on admission to [facility] Wide-complex tachycardia 04/28/2012 Overview: Presented to OSH 04/28/12 in setting acute IA with wide complex tachycardia SVT versus VT. Given adenosine x2 without effect, diltiazem bolus and infusion with no effect. Spontaneous conversion to NSR. Had short run of wide complex tachycardia upon arrival to [facility] Pre-op evaluation 04/28/2012 05/01/2012 Overview: Preoperative evaluation for CABG. Not ReDo -Carotids: Ordered -Vein Mapping: Ordered -Bedside PFTs: Ordered -Formal TTE: Ordered -CXR: Completed documented as of this encounter (statuses as of 08/27/2023) [facility] Malignant neoplasm of prostate (HCC)- Primary Malignant neoplasm of [facility] Unspecified hypothyroidism- Primary Hypercholesterolemia Pure hypercholesterolemia Abnormal finding of blood chemistry, unspecified [facility] Malignant neoplasm of prostate (HCC)- Primary Malignant neoplasm of prostate [facility] Chronic systolic heart failure (HCC)- Primary Chronic systolic heart failure [facility] Mitral valve insufficiency, unspecified etiology- Primary Chronic systolic heart failure (HCC) Chronic systolic heart failure [facility] Bilateral carotid artery stenosis- Primary Occlusion and stenosis of carotid artery without mention of cerebral infarction [facility] Diagnosis Coronary artery disease involving [place] coronary artery of [place] heart without angina pectoris- Primary Heart failure, acute systolic (HCC) Acute systolic heart failure Mixed hyperlipidemia Stenosis of left carotid artery Occlusion and stenosis of carotid artery without mention of cerebral infarction Cerebrovascular acci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) 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 Diagnosis Chronic systolic heart failure (HCC)- Primary Chronic systolic heart failure Coronary artery disease involving [place] coronary artery of [place] heart without angina pectoris documented in this encounter [facility] note* Diagnosis Malignant neoplasm of prostate (HCC)- Primary Malignant neoplasm of prostate documented in this encounter [facility] note* Diagnosis Chronic systolic heart failure (HCC) Chronic systolic heart failure Coronary artery disease involving [place] coronary artery of [place] heart without angina pectoris documented in this encounter [facility] note* Diagnosis Coronary artery disease involving [place] coronary artery of [place] heart without angina pectoris- Primary Heart failure, acute systolic (HCC) Acute systolic heart failure Preop testing Preoperative examination, unspecified Carotid stenosis, asymptomatic, bilateral Preoperative cardiovascular examination Pre-operative cardiovascular examination documented in this encounter [facility] note* Diagnosis 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 kidney disease, unspecified CKD stage, unspecified whether custodial insulin use (HCC)- Primary PVD (peripheral vascular disease) (HCC) Peripheral vascular disease, unspecified Atherosclerotic heart disease of [place]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) documented in this encounter [facility] for referral (narrative)* Outpatient Procedure (Routine) - Authorized Specialty Diagnoses / Procedures Referred By Contac t Referred To Contact [facility] Diagnoses Chronic systolic heart failure (HCC) Procedures ECHO ECHO TTHRC R-T 2D W/WOM-MODE COMPL SPEC&COLR D Andreas Del Cid MD [id number] [place] [address] [facility] [place] [address] Referral ID Status Reason Start Date Expiration Date Visits Requested Visits Authorized [id number] Authorized Auto-Generat ed Referral 06/06/2022 06/06/2023 1 1 * Outpatient Procedure (Routine) - Authorized Specialty Diagnoses / Procedures Referred By Contac t Referred To Contact [facility] [facility] Diagnoses Chronic systolic heart failure (HCC) Procedures ECG COMPLETE ECG ROUTINE ECG W/LEAST 12 LDS W/I&R Andreas Del Cid MD [address] [place] [id number] [address] Referral ID Status Reason Start Date Expiration Date Visits Requested Visits Authorized [id number] Authorized Auto-Generat ed Referral 06/06/2022 06/06/2023 1 1 [facility] for referral (narrative)* Outpatient Procedure (Routine) - Authorized Specialty Diagnoses / Procedures Referred By Contac t Referred To Contact [facility] Diagnoses Bilateral carotid artery stenosis Procedures US CAROTID ARTERIES [facility]AN[facility] DUPLEX SCAN EXTRACRANIAL [place] [address] [place] [address] [place] [address] Referral ID Status Reason Start Date Expiration Date Visits Requested Visits Authorized [id number] Authorized Auto-Generat ed Referral 2 08/03/2023 1 1 [facility] for referral (narrative)* Diagnostic Procedure Only (Routine) - Pending Review Specialty Diagnoses / Procedures [facility] To [facility] MOLEC[facility] FUNCTIONAL IMAGING Diagnoses Chronic systolic heart failure (HCC) Coronary artery disease involving [place] coronary artery of [place] heart without angina pectoris Procedures NM PET/CT CARDIAC VIABILITY MYOCRD IMG PET PRFUJ W/METAB 2RTRACER CNCRNT CT Andreas Del Cid MD [address] [place] [address] Molecular & Functional Imaging [address] [place] [address] Referral ID Status Reason Start Date Expiration Date Visits Requested Visits Authorized [id number] Pending Review Auto-Generat ed Referral 2 10/06/2023 1 1 * Diagnostic Procedure Only (Routine) - Pending Review Specialty Diagnoses / Procedures [facility] To Contact [facility]LECULAR & FUNCTIONAL IMAGING Diagnoses Chronic systolic heart failure (HCC) Coronary artery disease involving [place] coronary artery of [place] heart without angina pectoris Procedures NM PET/CT CARDIAC PERF REST/STRESS MYOCRD IMG PET PRFUJ PATHOLOGY TECHNOLOGIST STD RST & STRS CNCRNT CT Andreas Del Cid MD [address] [place] [address] Molecular & Functional Imaging [address] [place] [address] Referral ID Status Reason Start Date Expiration Date Visits Requested Visits Authorized [id number] Pending Review Auto-Generat ed Referral 10/06/2023 1 1 [facility] for referral (narrative)* Diagnostic Procedure Only (Routine) - Closed Specialty Diagnoses / Procedures Referred By Contac t Referred To Contact MOLECULAR & FUNCTIONAL IMAGING Diagnoses Chronic systolic heart failure (HCC) Coronary artery disease involving [place] coronary artery of [place] heart without angina pectoris Procedures NM PET/CT CARDIAC VIABILITY MYOCRD IMG PET PRFUJ W/METAB 2RTRACER CNCRNT CT Andreas Del Cid MD [address] [place] [address] Molecular & Functional Imaging [address] [place] [address] Referral ID Status Reason Start Date Expiration Date V isits Requested Visits Authorized [id number] Closed Auto-Generate d Referral 09/06/2022 10/06/2023 1 1 * Diagnostic Procedure Only (Routine) - Closed Specialty Diagnoses / Procedures Referred By Contac t Referred To Contact MOLECULAR & FUNCTIONAL IMAGING Diagnoses Chronic systolic heart failure (HCC) Coronary artery disease involving [place] coronary artery of [place] heart without angina pectoris Procedures NM PET/CT CARDIAC PERF REST/STRESS MYOCRD IMG PET PRFUJ PATHOLOGY TECHNOLOGIST STD RST & STRS CNCRNT CT Andreas Del Cid MD [address] [place] [address] Molecular & Functional Imaging [address] [place] [address] Referral ID Status Reason Start Date Expiration Date V isits Requested Visits Authorized [id number] Closed Auto-Generate d Referral 09/06/2022 10/06/2023 [address] 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 DATE CREATED AUTHOR AUTHOR'S ORGANIZ ATION 09/25/2023 [facility] Source Comments (unrecognize d section and content) In the event this informatio n is protected by the Federal Confidentiality of Alcohol and Drug Abuse Patient Records regulations: The Federal rules restrict any use of the information to criminally investigate or prosecute any alcohol or drug abuse patient.[facility] the event this information is protected by the Federal Confidentiality of Alcohol and Drug Abuse Patient Records regulations: The Federal rules restrict any use of the information to criminally investigate or prosecute any alcohol or drug abuse patient.[facility] the event this information is protected by the Federal Confidentiality of Alcohol and Drug Abuse Patient Records regulations: The Federal rules restrict any use of the information to criminally investigate or prosecute any alcohol or drug abuse patient.[facility] the event this information is protected by the Federal Confidentiality of Alcohol and Drug Abuse Patient Records regulations: The Federal rules restrict any use of the information to criminally investigate or prosecute any alcohol or drug abuse patient.[facility] the event this information is protected by the Federal Confidentiality of Alcohol and Drug Abuse Patient Records regulations: The Federal rules restrict any use of the information to criminally investigate or prosecute any alcohol or drug abuse patient.[facility] Center[facility] the event this information is protected by the Federal Confidentiality of Alcohol and Drug Abuse Patient Records regulations: The Federal rules restrict any use of the information to criminally investigate or prosecute any alcohol or drug abuse patient.[facility] Center[facility] the event this information is protected by the Federal Confidentiality of Alcohol and Drug Abuse Patient Records regulations: The Federal rules restrict any use of the information to criminally investigate or prosecute any alcohol or drug abuse patient.[facility] Center[facility] the event this information is protected by the Federal Confidentiality of Alcohol and Drug Abuse Patient Records regulations: The Federal rules restrict any use of the information to criminally investigate or prosecute any alcohol or drug abuse patient.[facility] Center[facility] the event this information is protected by the Federal Confidentiality of Alcohol and Drug Abuse Patient Records regulations: The Federal rules restrict any use of the information to criminally investigate or prosecute any alcohol or drug abuse patient.[facility] CenterIn the event this information is protected by the Federal Confidentiality of Alcohol and Drug Abuse Patient Records regulations: The Federal rules restrict any use of the information to criminally investigate or prosecute any alcohol or drug abuse patient.[facility] CenterIn the event this information is protected by the Federal Confidentiality of Alcohol and Drug Abuse Patient Records regulations: The Federal rules restrict any use of the information to criminally investigate or prosecute any alcohol or drug abuse patient.[facility] CenterIn the event this information is protected by the Federal Confidentiality of Alcohol and Drug Abuse Patient Records regulations: The Federal rules restrict any use of the information to criminally investigate or prosecute any alcohol or drug abuse patient.[facility] Center[facility] the event this information is protected by the Federal Confidentiality of Alcohol and Drug Abuse Patient Records regulations: The Federal rules restrict any use of the information to criminally investigate or prosecute any alcohol or drug abuse patient.[facility] Center[facility] the event this information is protected by the Federal Confidentiality of Alcohol and Drug Abuse Patient Records regulations: The Federal rules restrict any use of the information to criminally investigate or prosecute any alcohol or drug abuse patient.[facility] CenterIn the event this information is protected by the Federal Confidentiality of Alcohol and Drug Abuse Patient Records regulations: The Federal rules restrict any use of the information to criminally investigate or prosecute any alcohol or drug abuse patient.[facility] CenterIn the event this information is protected by the Federal Confidentiality of Alcohol and Drug Abuse Patient Records regulations: The Federal rules restrict any use of the information to criminally investigate or prosecute any alcohol or drug abuse patient.[facility] CenterIn the event this information is protected by the Federal Confidentiality of Alcohol and Drug Abuse Patient Records regulations: The Federal rules restrict any use of the information to criminally investigate or prosecute any alcohol or drug abuse patient.[facility] CenterIn the event this information is protected by the Federal Confidentiality of Alcohol and Drug Abuse Patient Records regulations: The Federal rules restrict any use of the information to criminally investigate or prosecute any alcohol or drug abuse patient.[facility] CenterIn the event this information is protected by the Federal Confidentiality of Alcohol and Drug Abuse Patient Records regulations: The Federal rules restrict any use of the information to criminally investigate or prosecute any alcohol or drug abuse patient.[facility] CenterIn the event this information is protected by the Federal Confidentiality of Alcohol and Drug Abuse Patient Records regulations: The Federal rules restrict any use of the information to criminally investigate or prosecute any alcohol or drug abuse patient.[facility] CenterIn the event this information is protected by the Federal Confidentiality of Alcohol and Drug Abuse Patient Records regulations: The Federal rules restrict any use of the information to criminally investigate or prosecute any alcohol or drug abuse patient.[facility] CenterIn the event this information is protected by the Federal Confidentiality of Alcohol and Drug Abuse Patient Records regulations: The Federal rules restrict any use of the information to criminally investigate or prosecute any alcohol or drug abuse patient.[facility] CenterIn the event this information is protected by the Federal Confidentiality of Alcohol and Drug Abuse Patient Records regulations: The Federal rules restrict any use of the information to criminally investigate or prosecute any alcohol or drug abuse patient.[facility] CenterIn the event this information is protected by the Federal Confidentiality of Alcohol and Drug Abuse Patient Records regulations: The Federal rules restrict any use of the information to criminally investigate or prosecute any alcohol or drug abuse patient.[facility] CenterIn the event this information is protected by the Federal Confidentiality of Alcohol and Drug Abuse Patient Records regulations: The Federal rules restrict any use of the information to criminally investigate or prosecute any alcohol or drug abuse patient.[facility] CenterIn the event this information is protected by the Federal Confidentiality of Alcohol and Drug Abuse Patient Records regulations: The Federal rules restrict any use of the information to criminally investigate or prosecute any alcohol or drug abuse patient.[facility] CenterIn the event this information is protected by the Federal Confidentiality of Alcohol and Drug Abuse Patient Records regulations: The Federal rules restrict any use of the information to criminally investigate or prosecute any alcohol or drug abuse patient.[facility] CenterIn the event this information is protected by the Federal Confidentiality of Alcohol and Drug Abuse Patient Records regulations: The Federal rules restrict any use of the information to criminally investigate or prosecute any alcohol or drug abuse patient.[facility] CenterIn the event this information is protected by the Federal Confidentiality of Alcohol and Drug Abuse Patient Records regulations: The Federal rules restrict any use of the information to criminally investigate or prosecute any alcohol or drug abuse patient.[facility] CenterIn the event this information is protected by the Federal Confidentiality of Alcohol and Drug Abuse Patient Records regulations: The Federal rules restrict any use of the information to criminally investigate or prosecute any alcohol or drug abuse patient.[facility] CenterIn the event this information is protected by the Federal Confidentiality of Alcohol and Drug Abuse Patient Records regulations: The Federal rules restrict any use of the information to criminally investigate or prosecute any alcohol or drug abuse patient.[facility] Reason for Visit (unrecogniz ed section and content) Reason Comments Radiotherapy On-treatment Visit Reason Comments Prostate Cancer Reason Comments Appointment Reason Comments Received Outside Medical Records Reason Comments Consult Reason Comments Radiology NM Specialty Diagnoses / Procedures Referred By Contac t Referred To Contact MOLECULAR & FUNCTIONAL IMAGING Diagnoses Chronic systolic heart failure (HCC) Coronary artery disease involving [place] coronary artery of [place] heart without angina pectoris Procedures NM PET/CT CARDIAC PERF REST/STRESS MYOCRD IMG PET PRFUJ PATHOLOGY TECHNOLOGIST STD RST & STRS CNCRNT CT Andreas Del Cid MD [address] [place] [address] Molecular & Functional Imaging [address] [place] [address] Referral ID Status Reason Start Date Expiration Date V isits Requested Visits Authorized [id number] Closed Auto-Generate d Referral 09/06/2022 10/06/2023 1 1 Reason Comments Surgery Cancelled Reason Comments Nm Pet Request Reason Onset Date Comments Refill Request 08/22/2023 Reason Comments Appointment Left a message with the patient regarding the cancellation of 10/22/2023 with . Informed the patient of the new scheduled appointment on 10/29/2023 with . Care Teams (unrecognized sec tion and content) Soap Mixer Relationship Specialty Start Date End Date Francisca Thompson MD PCP - General Family Practice 05/30/12 Yuliet Gonzaleztan Vagesh [address] [place] [address] Primary Staff Physician Cardiology 12/02/18 Soap Mixer Relationship Specialty Start Date End Date Francisca Thompson MD PCP - General Family Practice 05/30/12 Carlos Tom Vagesh [address] [place] [address] Primary Staff Physician Cardiology 12/02/18 Soap Mixer Relationship Specialty Start Date End Date Francisca Thompson MD PCP - General Family Practice 05/30/12 Carlos Tom Vagesh [address] [place] [address] Primary Staff Physician Cardiology 12/02/18 Soap Mixer Relationship Specialty Start Date End Date Francisca Thompson MD PCP - General Family Practice 05/30/12 Carlos Tom Vagesh [address] [place] [address] Primary Staff Physician Cardiology 12/02/18 Soap Mixer Relationship Specialty Start Date End Date Francisca Thompson MD PCP - General Family Practice 05/30/12 [facility] Vagesh [address] [place] [address] Primary Staff Physician Cardiology 12/02/18 Soap Mixer Relationship Specialty Start Date End Date Francisca Thompson MD PCP - General Family Practice 05/30/12 Carlos, Tom Vagesh [address] [place] [address] Primary Staff Physician Cardiology 12/02/18 Soap Mixer Relationship Specialty Start Date End Date Francisca Thompson MD PCP - General Family Medicine 05/30/12 Tom Gonzalez Vagesh [address] [place] [address] Primary Staff Physician Cardiology 12/02/18 Soap Mixer Relationship Specialty Start Date End Date Francisca Thompson MD PCP - General Family Medicine 05/30/12 Tom Gonzalez Vagesh [address] [place] [address] Primary Staff Physician Cardiology 12/02/18 Soap Mixer Relationship Specialty Start Date End Date Francisca Thompson MD PCP - General Family Medicine 05/30/12 [facility] [address] [place] [address] Primary Staff Physician Cardiology 12/02/18 Soap Mixer Relationship Specialty Start Date End Date Francisca Thompson MD PCP - General Family Medicine 05/30/12 [place], Tom Vagesh [address] [place] [address] Primary Staff Physician Cardiology 12/02/18 Soap Mixer Relationship Specialty Start Date End Date Francisca Thompson MD PCP - General Family Medicine 05/30/12 Felixmireya, Tom Vagesh [address] [place] [address] Primary Staff Physician Cardiology 12/02/18 Soap Mixer Relationship Specialty Start Date End Date Francisca Thompson MD PCP - General Family Medicine 05/30/12 Carlos, Tom Vagesh [address] [place] [address] Primary Staff Physician Cardiology 12/02/18 Soap Mixer Relationship Specialty Start Date End Date Francisca Thompson MD PCP - General Family Medicine 05/30/12 Tom Gonzalez Vages[address] [address] Primary Staff Physician Cardiology 12/02/18 Soap Mixer Relationship Specialty Start Date End Date Francisca Thompson MD PCP - General Family Medicine 05/30/12 Tom Gonzalez Vagesh [address] [place] [address] Primary Staff Physician Cardiology 12/02/18 Soap Mixer Relationship Specialty Start Date End Date Francisca Thompson MD PCP - General Family Medicine 05/30/12 Carlos, Tmo Vagesh [address] [place] [address] Primary Staff Physician Cardiology 12/02/18 Soap Mixer Relationship Specialty Start Date End Date Francisca Thompson MD PCP - General Family Medicine 05/30/12 [facility] [address] [place] [address] Primary Staff Physician Cardiology 12/02/18 Soap Mixer Relationship Specialty Start Date End Date Francisca Thompson MD PCP - General Family Medicine 05/30/12 [facility] [address] [place] [address] Primary Staff Physician Cardiology 12/02/18 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 Relationship Specialty Start Date End Date Francisca Thompson MD PCP - General Family Medicine 05/30/12 [facility] [address] [place] [address] Primary Staff Physician Cardiology 12/02/18 Soap Mixer Relationship Specialty Start Date End Date Francisca Thompson MD PCP - General Family Medicine 05/30/12 Tom Gonzalez [facility] [address] [place] [address] Primary Staff Physician Cardiology 12/02/18 Soap Mixer Relationship Specialty Start Date End Date Francisca Thompson MD PCP - General Family Medicine 05/30/12 [facility] [address] [place] [address] Primary Staff Physician Cardiology 12/02/18 Andreas De lCid MD [address] [place] [address] Primary Staff Physician Cardiology 04/26/23 Soap Mixer Relationship Specialty Start Date End Date Francisca Thompson MD PCP - General Family Medicine 05/30/12 Tom Gonzalez [address] [place] [address] Primary Staff Physician Cardiology 12/02/18 Andreas Del Cid MD [address] [place] [address] Primary Staff Physician Cardiology 04/26/23 Soap Mixer Relationship Specialty Start Date End Date Francisca Thompson MD PCP - General Family Medicine 05/30/12 Tom Gonzalez [address] [place] [address] Primary Staff Physician Cardiology 12/02/18 Andreas Del Cid MD [address] [place] [address] Primary Staff Physician Cardiology 04/26/23 Soap Mixer Relationship Specialty Start Date End Date Francisca Thompson MD PCP - General Family Medicine 05/30/12 Tom Gonzalez [address] [place] [address] Primary Staff Physician Cardiology 12/02/18 Andreas Del Cid MD [address] [place] [address] Primary Staff Physician Cardiology 04/26/23 FOR RECORDS PERTAINING TO PATIENTS WHO ARE OR HAVE BEEN ENROLLED IN A CHEMICAL DEPENDENCY/SUBSTANCEABUSE PROGRAM, SOME INFORMATION MAY BE OMITTED. This clinical summary was aggregated from multiple sources. Caution should be exercised in using it in the provision of clinical care. This summary normalizes information from multiple sources, and as a consequence, information in this document may materially change the coding, format and clinical context of patient data. In addition, data may be omitted in some cases. CLINICAL DECISIONS SHOULD BE BASED ON THE PRIMARY CLINICAL RECORDS. [employer] [facility]. provides no warranty or guarantee of the accuracy or completeness of information in this document.
[2023-09-26 14:37] LABS: Basophils Percent Auto 0.6 % (0.2-2.0); Eosinophils Absolute Auto 0.2 10^3/uL (0.0-0.7); Eosinophils Percent Auto 3.3 % (0.9-7.0); Hematocrit 38.6 % (42.0-54.0); Hemoglobin 11.8 g/dL (14.0-18.0); Immature Granulocytes Abs Auto 0.02 10^3/uL (0.00-0.03); Immature Granulocytes Pct Auto 0.3 % (0.0-0.5); Lymphocytes Absolute Auto 0.9 10^3/uL (1.2-3.8); Lymphocytes Percent Auto 13.2 % (20.5-60.0); Mean Corpuscular HGB Conc 30.6 g/dL (29.9-35.2); Mean Corpuscular Volume 94.8 fL (80.0-94.0); Mean Platelet Volume 10.8 fL (9.5-13.5); Monocytes Absolute Auto 0.6 10^3/uL (0.3-0.8); Monocytes Percent Auto 8.7 % (1.7-12.0); Neutrophils Absolute Auto 5.2 10^3/uL (1.4-6.5); Neutrophils Percent Auto 73.9 % (43.0-75.0); Platelet Count 162 10^3/uL (150-450); Red Blood Count 4.07 10^6/uL (4.70-6.10); Red Cell Distribution Width 15.4 % (11.0-15.0)
[2023-09-26 15:07] LABS: Alanine Aminotransferase 23 U/L (16-63); Albumin Globulin Ratio 0.8; Albumin Level 3.2 g/dL (3.4-5.0); Alkaline Phosphatase 90 U/L (46-116); Anion Gap 11.3; Aspartate Amino Transferase 24 U/L (15-37); BUN Creatinine Ratio 38.8; Bilirubin Total 0.9 mg/dL (0.2-1.0); Calcium 9.7 mg/dL (8.5-10.1); Chloride 108 mmol/L (98-107); Estimated GFR (African America >60 (>=60); Estimated GFR (Non-African Ame >60 (>=60); Globulin 3.8 g/dL; Glucose 97 mg/dL (74-106); Potassium 5.3 mmol/L (3.5-5.1); Sodium 139 mmol/L (136-145)
[2023-10-01 16:11] LABS: Copper Level 121 ug/dL (69-132)
== END 2023-09-26 13:58 | disposition home or self-care (01) ==
PROVIDERS: PCP Family Medicine; Visit Provider Family Medicine
DX: R89.9 Unspecified abnormal finding in specimens from other organs, systems and tissues (principal); E87.5 Hyperkalemia; F32.9 Major depressive disorder, single episode, unspecified; E55.9 Vitamin D deficiency, unspecified; D64.9 Anemia, unspecified; E78.5 Hyperlipidemia, unspecified
CPT/HCPCS: 36415; 80053; 82525; 83880; 85025

== ENCOUNTER 2023-09-26 17:55 | Inpatient (IN) | payer MEDICARE, OTHER, SELFPAY ==
[2023-09-26] VITALS (8 sets, daily range): BP systolic 108–129; BP diastolic 66–77; PULSE 69–94; RESP 14–24; TEMP 36.6; O2SAT 92–95; BMI 24.8
--- NOTE | 2023-09-26 17:59 | ECG_ITS ---
[facility] Test Date: 2023-09-26 Pat Name: LANDEN ROTH Department: Room: - Gender: Male C.O.D. Biller: : 1940 Requested By: FRANCISCA THOMPSON Order Number: [id number] Reading MD: FRANCISCA THOMPSON Measurements Intervals [place] Rate: 82 P: 66 MS: 178 QRS: 31 QRSD: 112 T: 51 QT: 376 QTc: 415 Interpretive Statements 1100 Sinus rhythm 1570 with occasional ventricular premature complexes 3434 Septal myocardial infarction, age undetermined 8003 Consistent with pulmonary disease 8101 Low QRS voltage in limb leads 9150 abnormal ECG Compared to ECG 05/16/2022 15:13:50 Ventricular premature complex(es) now present Low QRS voltage now present Possible ischemia no longer present Myocardial infarct finding still present Electronically Signed On 09-30-2023 6:44:58 EST by FRANCISCA THOMPSON
--- NOTE | 2023-09-26 17:59 | XR_ITS ---
The [place] [id number] Patient Name: LANDEN ROTH MRN: [id number] date: 1940 Sex: M Assigned Patient Location: ER Current Patient Location: ED.MAIN Accession/Order Number: [id number] Exam Date: 09/26/2023 18:30 Report Date: 09/26/2023 19:11 At the request of: ESTELLA GARCIA Procedure: XR chest 1V EXAM: XR chest 1V TECHNIQUE: Single AP view chest HISTORY: shortness of breath COMPARISON: None. FINDINGS: Heart is enlarged. Multilead left-sided pacemaker defibrillator. Small left-sided pleural effusion. Osseous structures are intact. XR/XR chest 1V IMPRESSION: Small left-sided pleural effusion. Electronically authenticated by: MISA CAN Date: 09/26/2023 19:11
--- OUTSIDE RECORDS SUMMARY | 2023-09-26 18:01 | XMS_ITS | CCD ---
Author Name Unknown Address [address] [facility] [address] [place] [address] Organization [facility] Care Team Providers Care Manager Cleaning Name Role Phone Francisca Thompson MD Primary Care Provider [phone] Tom Gonzalez Unavailable SHARON HOOKS Referring Unavailable MARLENE KRISHNA Attending Unavailable NORMA ARORA Admitting Unavailable FRANCISCA THOMPSON Primary Care Unavailable Francisca Thompson MD Primary Care Provider [phone] Tom Gonzalez Unavailable [phone] MALAIKA FAUST Attending Unavailable MALAIKA FAUST Attending Unavailable Francisca Thompson MD Primary Care Provider [phone] Tom Gonzalez Unavailable [phone] DR FRANCISCA AYERS Primary Care Unavailable MALAIKA [...] Unavailable MISC, DR DURAN Attending Unavailable DONNA Qrueshi, DR ESPINOSA Primary Care Unavailable DONNA Qureshi, [...] Del Cid MD Unavailable Tom Gonzalez Unavailable [phone] Andreas Del Cid MD Unavailable HOY, FRANCISCA [...] Care Unavailable Yung KIM Attending Unavailable HOY, FRANICSCA M Primary Care Unavailable ANDREAS DEL CID [...] [ADHESIVE TAPE (ROSINS)] Allergy to substance 06-16-2012 [facility] Work Phone: (20 sources) Latex; Translations: [LATEX] Drug Allergy 03-13-2019 [facility] (3 sources) Latex Drug allergy (disorder) 11-04-2013 [facility] Repository Medications Current Medications Medication Drug Class(es) [...] tablet by anuja th once daily. thyroid (detention) 15 mg oral tablet (20 sources) Start: 023 WEB MARKETING ANALYST 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 0 [...] Coronary atherosclerosis; Translations: [Atherosclerotic heart disease of [place] coronary artery without angina pectoris] Onset: 04-28-2012 [...] 05-15-2022 Episodic Other aftercare (1 source) Other [facility] (current) drug therapy; Translations: [OTH HOT KETTLE TENDER CURRENT DRUG THERAPY] Onset: 05-18-2022 Episodic Other aftercare (1 source) jail (current) use of anticoagulants; Translations: [HOT KETTLE TENDER CURRNT USE ANTICOAGULANTS] Onset: 05-18-2022 Episodic Other [...] Test Name Value Interpretation Reference Range Facility [facility] 08-27-2023 [facility] Telephone (CARIMN) JOSÉ MIGUEL ROTH JR. ([id number]) 1940 M Date Time Provider Department 08/27/23 [...] 0.4 mg SL tablet as directed. - WEB MARKETING ANALYST 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 ([id number]) 1940 Date Time Provider Department 04/26/23 3:00 PM ANDREAS DEL CID During your visit today, we recorded the following information about you: Pulse Respiration Blood pressure Weight 73/minute 12/minute 116/62 83.9 kg Height 1.829 m Andreas Del Cid MD 04/27/2023 12:57 PM [facility] [place] Jose Martin Silva Department of Cardiovascular Medicine SECTION OF CARDIOVASCULAR IMAGING OUTPATIENT VISIT DATE April 26, 2023 OUTPATIENT VISIT TYPE ESTABLISHED PRIMARY CARE PHYSICIAN: Francisca Thompson [address] [place] [address] REFERRING PHYSICIAN: Francisca Thompson [address] [facility] [phone] CHIEF COMPLAINT: Follow up HISTORY OF PRESENT [...] 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 Dyslipidemia GERD (gastroesophageal reflux disease) Heart failure, acute systolic ([facility]) Hypertension Hypothyroid Myocardial infarct, old Occlusion and stenosis of carotid artery without mention of cerebral infarction Prostate cancer ([facility]) 2020 PVD (peripheral vascular disease) ([facility]) 11/17/2012 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 Systolic heart failure ([facility]) Thyroid disorder 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 kidney disease, unspecified CKD stage, 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 HE (more content not included)... Normal [facility] ECG COMPLETEon 04-26-2023 ECG COMPLETE Ventricular Rate : 6 6 BPM Atrial Rate : 66 BPM P-R Interval : 180 ms QRS Duration : 114 ms Q-T Interval : 406 ms QTC Calculation(Bazett) : 425 ms Calculated P [place] : 39 degrees Calculated R [place] : -13 degrees Calculated T [place] : 87 degrees SINUS RHYTHM WITH SINUS ARRHYTHMIA WITH OCCASIONAL PREMATURE VENTRICULAR COMPLEXES CANNOT EXCLUDE OLD INTERIOR INFARCTION ABNORMAL ECG Confirmed by CARMELA CRYSTAL MD ([id number]) on 05/02/2023 7:31:47 PM NAME : JOSÉ MIGUEL ROTH PID : [id number] : 1940 Gender : Male Race : ORD : [id number] Procedure Date : Apr 26 2023 12:40:23 Edit Date : May 02 2023 19:31:54 Diagnosis: SINUS RHYTHM WITH SINUS ARRHYTHMIA WITH OCCASIONAL PREMATURE VENTRICULAR COMPLEXES CANNOT EXCLUDE OLD INTERIOR INFARCTION ABNORMAL ECG Confirmed by CARMELA CRYSTAL MD ([id number]) on 05/02/2023 7:31:47 PM Test Reason : Location : 314 : [facility] j1-4 Overread By : CARMELA CRYSTAL MD Edited By : CARMELA CRYSTAL MD Referred By : ANDREAS DEL CID Acquired by : MAIKOL BURLESON 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 Normal [facility] CNOVon 04-02-2023 CNOV Office Visit (RADTSA ) JOSÉ MIGUEL ROTH JR. ([id number]) 1940 M Date Time Provider Department 04/02/23 [...] PSA 08/2021 36.2. and repeat biopsy showing [place] 7 (3+4) adenocarcinoma. RADIATION SUMMARY: DATES OF [...] who recently had to be admitted to [facility] due to feels safe. PSA HISTORY: PSA [...] ASSESSMENT/PLAN: Prostate adenocarcinoma, initial PSA 8, biopsy [place] score 3 + 4 = 7 (grade group 2), clinical stage T1c, N0, M0, stage IIB [T1-T2, N0, M0, PSA <20, GG 2] (AJCC 8th ed.), s/p TRUS Random biopsy, PSA remains undetectable. No significant posttreatment problems. Recommend repeat PSA in 6 months. Signed by: Yung Kim MD cc: Francisca Thompson MD [address] [place] [address] Kathie Pavon RN 04/02/2023 4:02 PM Signed AUA 1.5 Kathie Pavon RN Allergies As of Date: 04/02/2023 Noted Allergy Reaction LATEX 03/13/2019 2 - Rash ADHESIVE TAPE (ROSINS) 06/16/2012 2 - Rash Date Reviewed: 04/02/2023 Reviewed by: Kathie Pavon RN - Fully Assessed Reason for Visit: Prostate Cancer [590] Primary Visit Diagnosis:Malignant neoplasm of prostate (HCC) [C61] Order(s):PSA/PROSTSPECAG DIAG [SQPSA] Order #: [id number] FUTURE Prescriptions as of 04/05/2023 - FARXIGA [...] spironolactone (ALDAC (more content not included)... Normal [facility] PSA SerPl-ncon 03-26-2023 Prostate specific Ag [Mass/Vol] ng/mL Normal <2.[address] [facility] Comment on above: Order Comment: Speci men Type: BLOOD SPECIMENOrdering Facility: [facility] Address: [address] [place] [address] Result Comment: Tota l PSA test methodology used is the Electrochemiluminescence Immunoassay by [employer]. Total PSA values by differing methodologies cannot be interchanged. Performed By: #### 2 857-1 ####[facility] LABCLIA [id number] [place] [address] [place] ICD REMOTE CHECKon 3 AV Delay Adaptive Paced Minimum (ms) 200 ms [facility] AV Delay Adaptive Sensed Minimum (ms) 170 ms [facility] Bj RA Pacing Amplitude (volts) 2.0 V [facility] Bj RA Pacing Polarity BI [facility] Bj RA Pacing Pulse Width (ms) 0.5 ms [facility] Bj RA Sensing Amplitude (mvolts) 0.25 mV [facility] Bj RA Sensing Polarity BI [facility] Bj RV Pacing Amplitude (volts) 2.0 V [facility] Bj RV Pacing Polarity BI [facility] Bj RV Pacing Pulse Width (ms) 0.5 ms [facility] Bj RV Sensing Amplitude (mvolts) 0.3 mV [facility] Bj RV Sensing Polarity BI [facility] Detection Configuration (Vent) 2 - Zone [facility] FastVT_Detection Interval 250 ms [facility] FastVT_Therapy Configuration 1 ATP(s) + 8 Shock(s) [facility] ICD FastVT DetectionStatus ENABLED [facility] ICD-AMS EPISODES 170 {beats}/min [facility] ICD-ATP Episodes (Vent) 0 [facility] ICD-ATRIALFIBRILLAT ION 2 [facility] ICD-ATRIALTACHYCARD IA 2 [facility] ICD-ATRIALTACHYCARD IA 5 [facility] ICD-Device Mfg BSX [facility] ICD-Fast Ventricular Tachycardia 5 [facility] ICD-LEADIMPEDANCEAT RIAL 746 ohm [facility] ICD-Percent Pacing (Atrial) 1 % [facility] ICD-Percent Pacing (Vent) 0 % [facility] ICD-Shocks Aborted (Vent) 0 [facility] THN-[id number]-UKIHVXVF D 0 [facility] ICD-SHOCKSABORTED 0 [facility] ICD-SHOCKSDELIVERED VENTRICULAR 0 [facility] ICD-Ventricular Fibrillation 0 [facility] Lead Impedance (RV) 426 ohm [facility] Lead Impedance High Voltage 49 ohm [facility] Lead1 Mfg BSX [facility] Lead2 Mfg BSX [facility] Location RV [facility] Location RA [facility] Lower Rate (bpm) 50 {beats}/min [facility] Max Sensor Rate (bpm) 130 {beats}/min [facility] MDT_PROG_TACHY_ZONE _DETECTIONS_STATUS ENABLED [facility] Model D142 INOGEN [facility] Model [place] [place] 4-Front [facility] Model 7741 Ingevity MRI [facility] Pacing Mode DDDR [facility] Serial Number [id number] [facility] Serial Number [id number] [facility] Serial Number [id number] [facility] Test Charge Energy 23 J [facility] Test Charge Time 10.2 s [facility] Therapy Status (Vent) Enabled [facility] Thresh RA Capture Amplitude (volts) 0.6 V [facility] Thresh RA Capture Duration (ms) 0.5 ms [facility] Thresh RV Capture Amplitude (VOLTS) 0.5 V [facility] Thresh RV Capture Duration (MS) 0.5 ms [facility] Tracking Rate (bpm) 130 {beats}/min [facility] VF Zone Detection Interval 250 ms [facility] VF Zone Therapy Configuration 1 ATP(s) + 8 Shock(s) [facility] No Panel Informationon 02-21 BLANK _ [facility] ICD-ATRIALTACHYCARD IA 0 [facility] ICD-Fast Ventricular Tachycardia 0 [facility] Implant Date 03/24/2019 [facility] FREE T3on 02-08-2023 FREE T3 3.21 pg/mlL Normal 2.18-3.98 [facility] Comment on above: Performed By: #### V ITAD #### [facility] [address] [address] [address] Silva Burnett FREE T4on 02-08-2023 Free T4 [Mass/Vol] 0.74 ng/dL Critically low 0.76-1.46 Th e [facility] Comment on above: Performed By: #### B MP, BNP #### [facility] [address] [address] [address] Silva Burnett TSHon 02-08-2023 TSH 0.168 uIU/mL Critically low 0.358-3.740 [facility] Comment on above: Performed By: #### V ITAD #### [facility] [address] [address] [address] Silva Burnett CNPNon 12-12-2022 CNPN Telephone (VASSMN) JOSÉ MIGUEL ROTH JR. ([id number]) 1940 M Date Time Provider Department 12/12/22 [...] of t*04/28/2012 05/05/2012 CAD (coronary artery disease), [place] coronary *04/28/2012 SUMMARY [V999.95] 04/28/2012 Wide-complex tachycardia [...] (coronary artery bypass graft) [Z95.1] 06/17/2012 Sweating [ZFO3309] 11/17/2012 CAD (coronary artery disease) of artery bypass *11/17/2012 Systolic heart failure (HCC) [I50.20] 11/17/2012 PVD (peripheral vascular disease) ([facility]) [I73.9] 11/17/2012 Prostate cancer ([facility]) [C61] 10/09/2017 Syncope [R55] 03/18/2019 Stroke (cerebrum) ([facility]) [I63.9] 09/03/2022 Chronic combined systolic and diastolic congest*09/03/2022 Carotid stenosis, asymptomatic, bilateral [I65.*09/03/2022 Encounter Status:Closed by HUBER ESPINAL RN on 12/12/22 [facility] 11-29-2022 DOROTHYN Telephone (PAULA) JOSÉ MIGUEL ROTH JR. ([id number]) 1940 M Date Time Provider Department 11/29/22 JOHN JEFFERSON During your visit today, we recorded the following information about you: Darlene Rajput Sec 11/29/2022 9:12 AM Signed Mr. Roth decided not to move forward with surgery at this time and would like to cancel. Darlene Rajput [employer] [place] Allergies As of Date: 11/29/2022 Noted Allergy [...] of t*04/28/2012 05/05/2012 CAD (coronary artery disease), [place] coronary *04/28/2012 SUMMARY [V999.95] 04/28/2012 Wide-complex tachycardia [...] (coronary artery bypass graft) [Z95.1] 06/17/2012 Sweating [ZMP6618] 11/17/2012 CAD (coronary artery disease) of artery bypass *11/17/2012 Systolic heart failure (HCC) [I50.20] 11/17/2012 PVD (peripheral vascular disease) ([facility]) [I73.9] 11/17/2012 Prostate cancer ([facility]) [C61] 10/09/2017 Syncope [R55] 03/18/2019 Stroke (cerebrum) ([facility]) [I63.9] 09/03/2022 Chronic combined systolic and diastolic congest*09/03/2022 Carotid stenosis, asymptomatic, bilateral [I65.*09/03/2022 Encounter Status:Closed by DARLENE SHUKLA on 11/29/[address] [facility] ICD REMOTE CHECKon 3 AV Delay Adaptive Paced Minimum (ms) 200 ms [facility] AV Delay Adaptive Sensed Minimum (ms) 170 ms [facility] Bj RA Pacing Amplitude (volts) 2 V [facility] Bj RA Pacing Polarity BI [facility] Bj RA Pacing Pulse Width (ms) 0.5 ms [facility] Bj RA Sensing Amplitude (mvolts) 0.25 mV [facility] Bj RA Sensing Polarity BI [facility] Bj RV Pacing Amplitude (volts) 2 V [facility] Bj RV Pacing Polarity BI [facility] Bj RV Pacing Pulse Width (ms) 0.5 ms [facility] Bj RV Sensing Amplitude (mvolts) 0.3 mV [facility] Bj RV Sensing Polarity BI [facility] Detection Configuration (Vent) 2 - Zone [facility] FastVT_Detection Interval 250 ms [facility] FastVT_Therapy Configuration 1 ATP(s) + 8 Shock(s) [facility] ICD FastVT DetectionStatus ENABLED [facility] ICD-AMS EPISODES 170 {beats}/min [facility] ICD-ATP Episodes (Vent) 0 [facility] ICD-ATRIALFIBRILLAT ION 1 [facility] ICD-ATRIALTACHYCARD IA 1 [facility] ICD-ATRIALTACHYCARD IA 3 [facility] ICD-Device Mfg BSX [facility] ICD-Fast Ventricular Tachycardia 3 [facility] ICD-LEADIMPEDANCEAT RIAL 786 ohm [facility] ICD-Percent Pacing (Atrial) 1 % [facility] ICD-Percent Pacing (Vent) 0 % [facility] ICD-Shocks Aborted (Vent) 0 [facility] XZC-EIOHXG-VKOZARHP D 0 [facility] ICD-SHOCKSABORTED 0 [facility] ICD-SHOCKSDELIVERED VENTRICULAR 0 [facility] ICD-Ventricular Fibrillation 0 [facility] Lead Impedance (RV) 458 ohm [facility] Lead Impedance High Voltage 53 ohm [facility] Lead1 Mfg BSX [facility] Lead2 Mfg BSX [facility] Location RV [facility] Location RA [facility] Lower Rate (bpm) 50 {beats}/min [facility] Max Sensor Rate (bpm) 130 {beats}/min [facility] MDT_PROG_TACHY_ZONE _DETECTIONS_STATUS ENABLED [facility] Model D142 INOGEN [facility] Model [place] 4-Front [facility] Model 7741 Ingevity MRI [facility] Pacing Mode DDDR [facility] Serial Number [id number] [facility] Serial Number [id number] [facility] Serial Number [id number] [facility] Test Charge Energy 23 J [facility] Test Charge Time 10.2 s [facility] Therapy Status (Vent) Enabled [facility] Thresh RA Capture Amplitude (volts) 0.6 V [facility] Thresh RA Capture Duration (ms) 0.5 ms [facility] Thresh RV Capture Amplitude (VOLTS) 0.5 V [facility] Thresh RV Capture Duration (MS) 0.5 ms [facility] Tracking Rate (bpm) 130 {beats}/min [facility] VF Zone Detection Interval 250 ms [facility] VF Zone Therapy Configuration 1 ATP(s) + 8 Shock(s) [facility] No Panel Informationon 11-07 BLANK _ [facility] ICD-ATRIALTACHYCARD IA 0 [facility] ICD-Fast Ventricular Tachycardia 0 [facility] Implant Date 03/24/2019 [facility] CNPNon 10-31-2022 CNPN Telephone (Bestim[employer] LLCSMN) JOSÉ MIGUEL ROTH JR. ([id number]) 1940 Date Time Provider Department 10/31/22 JOHN [...] of t*04/28/2012 05/05/2012 CAD (coronary artery disease), [place] coronary *04/28/2012 SUMMARY [V999.95] 04/28/2012 Wide-complex tachycardia [...] (coronary artery bypass graft) [Z95.1] 06/17/2012 Sweating [[id number]] 11/17/2012 CAD (coronary artery disease) of artery bypass *11/17/2012 Systolic heart failure ([facility]) [I50.20] 11/17/2012 PVD (peripheral vascular disease) ([facility]) [I73.9] 11/17/2012 Prostate cancer ([facility]) [C61] 10/09/2017 Syncope [R55] 03/18/2019 Stroke (cerebrum) ([facility]) [I63.9] 09/03/2022 Chronic combined systolic and diastolic congest*09/03/2022 Carotid stenosis, asymptomatic, bilateral [I65.*09/03/2022 Encounter Status:Closed by LIDIA MCCLOUD on 10/31/22 Normal [facility] metabolic 2000 panelon 10-26-2022 Albumin [Mass/Vol] 4.0 g/dL 3.9 - 4.9 g/dL [facility] ALP [Catalytic activity/Vol] 103 U/L 38 - 113 U/L [facility] ALT [Catalytic activity/Vol] 15 U/L 10 - 54 U/L [facility] Anion gap [Moles/Vol] 17 mmol/L 9 - 18 mmol/L [facility] AST [Catalytic activity/Vol] 26 U/L 14 - 40 U/L [facility] Bilirubin [Mass/Vol] 0.6 mg/dL 0.2 - 1.3 mg/dL [facility] Calcium [Mass/Vol] 10.2 mg/dL 8.5 - 10. 2 mg/dL [facility] Chloride [Moles/Vol] 103 mmol/L 97 - 105 mmol/L [facility] CO2 [Moles/Vol] 20 mmol/L Low 22 - 30 mmol/L [facility] Creatinine [Mass/Vol] 1.89 mg/dL High 0.73 - 1.22 mg/dL [facility] Estimated Glomerular Filtration Rate 35 mL/min/1.73m Low >=60 mL/min/1.73 m [facility] Glucose [Mass/Vol] 103 mg/dL High 74 - 99 mg/dL [facility] Potassium [Moles/Vol] 5.5 mmol/L High 3.7 - 5.1 mmol/L [facility] Protein [Mass/Vol] 7.7 g/dL 6.3 - 8.0 g/dL [facility] Sodium [Moles/Vol] 140 mmol/L 136 - 144 mmol/L [facility] Urea nitrogen [Mass/Vol] 40 mg/dL High 9 - 24 mg/dL [facility] NT PRO BNPon 10-26-2022 Natriuretic peptide.B prohormone N-Terminal [Mass/Vol] 5553 pg/mL High <450 pg/mL [facility] CBC W Auto Differential pane l (Bld)on 10-25-2022 Basophils (Bld) [#/Vol] 10*3/uL Normal <0.[address] [facility] Comment on above: Order Comment: Speci men Type: BLOOD SPECIMENOrdering Facility: [facility] Address: [address] [place] [address] Performed By: #### 5 7021-8 ####[facility] LABCLIA [id number] [place] [address] [place] Basophils/100 WBC (Bld) 0.3 % Normal [facility] Comment on above: Order Comment: Speci men Type: BLOOD SPECIMENOrdering Facility: [facility] Address: [address] [place] [address] Performed By: #### 5 7021-8 ####[facility] LABCLIA [id number] [place] [address] [place] Differential cell count method Nom (Bld) Auto Normal [facility] Comment on above: Order Comment: Speci men Type: BLOOD SPECIMENOrdering Facility: [facility] Address: [address] [place] [address] Performed By: #### 5 7021-8 ####[facility] LABCLIA [id number] [place] [address] [place] Eosinophils (Bld) [#/Vol] 0.20 10*3/uL Normal <0.[address] [facility] Comment on above: Order Comment: Speci men Type: BLOOD SPECIMENOrdering Facility: [facility] Address: [address] Performed By: #### 5 7021-8 ####[facility] LABCLIA [id number] [place] [address] [place] Eosinophils/100 WBC (Bld) 2.7 % Normal [facility] Comment on above: Order Comment: Speci men Type: BLOOD SPECIMENOrdering Facility: [facility] Address: [address] Performed By: #### 5 7021-8 ####[facility] LABCLIA [id number] [place] [address] [place] Erythrocyte distribution width (RBC) [Ratio] 13.6 % Normal 11.5-15.[address] [facility] Comment on above: Order Comment: Speci men Type: BLOOD SPECIMENOrdering Facility: [facility] Address: [address] Performed By: #### 5 7021-8 ####[facility] LABCLIA [id number] [place] [address] [place] Hematocrit (Bld) [Volume fraction] 47.3 % Normal 39.0-51.[address] [facility] Comment on above: Order Comment: Speci men Type: BLOOD SPECIMENOrdering Facility: [facility] Address: [address] Performed By: #### 5 7021-8 ####[facility] LABCLIA [id number] [place] [address] [place] Hemoglobin (Bld) [Mass/Vol] 14.6 g/dL Normal 13.0-17.[address] [facility] Comment on above: Order Comment: Speci men Type: BLOOD SPECIMENOrdering Facility: [facility] Address: [address] Performed By: #### 5 7021-8 ####[facility] LABCLIA [id number] [place] [address] [place] Immature granulocytes (Bld) [#/Vol] 10*3/uL Normal <0.[address] [facility] Comment on above: Order Comment: Speci men Type: BLOOD SPECIMENOrdering Facility: [facility] Address: [address] [place] [address] Performed By: #### 5 7021-8 ####[facility] LABCLIA [id number] [address] [place] Immature granulocytes/100 WBC (Bld) 0.3 % Normal [facility] Comment on above: Order Comment: Speci men Type: BLOOD SPECIMENOrdering Facility: [facility] Address: [address] [place] [address] Performed By: #### 5 7021-8 ####[facility] LABCLIA [id number] [place] [address] [place] [place] Lymphocytes (Bld) [#/Vol] 1.40 10*3/uL Normal 1.00-4.[address] [facility] Comment on above: Order Comment: Speci men Type: BLOOD SPECIMENOrdering Facility: [facility] Address: [address] [place], [place] [address] Performed By: #### 5 7021-8 ####[facility] LABCLIA [id number] [place] [address] [place] Lymphocytes/100 WBC (Bld) 19.0 % Normal [facility] Comment on above: Order Comment: Speci men Type: BLOOD SPECIMENOrdering Facility: [facility] Address: [address] [place], [place] [address] Performed By: #### 5 7021-8 ####[facility] LABCLIA [id number] [place] [address] [place] MCH (RBC) [Entitic mass] 29.1 pg Normal 26.0-34.[address] [facility] Comment on above: Order Comment: Speci men Type: BLOOD SPECIMENOrdering Facility: [facility] Address: [address] Performed By: #### 5 7021-8 ####[facility] LABCLIA [id number] [place] [address] [place] MCHC (RBC) [Mass/Vol] 30.9 g/dL Normal 30.5-36.[address] [facility] Comment on above: Order Comment: Speci men Type: BLOOD SPECIMENOrdering Facility: [facility] Address: [address] Performed By: #### 5 7021-8 ####[facility] LABCLIA [id number] [place] [address] [place] MCV (RBC) [Entitic vol] 94.2 fL Normal 80.0-100.[address] [facility] Comment on above: Order Comment: Speci men Type: BLOOD SPECIMENOrdering Facility: [facility] Address: [address] Performed By: #### 5 7021-8 ####[facility] LABIA [id number] [place] [address] [place] Monocytes (Bld) [#/Vol] 0.65 10*3/uL Normal <0.[address] [facility] Comment on above: Order Comment: Speci men Type: BLOOD SPECIMENOrdering Facility: [facility] Address: [address] Performed By: #### 5 7021-8 ####[facility] LABIA [id number] [address] [place] Monocytes/100 WBC (Bld) 8.8 % Normal [facility] Comment on above: Order Comment: Speci men Type: BLOOD SPECIMENOrdering Facility: [facility] Address: [address] Performed By: #### 5 7021-8 ####[facility] LABCLIA [id number] [place] [address] [place] Neutrophils (Bld) [#/Vol] 5.06 10*3/uL Normal 1.45-7.[address] [facility] Comment on above: Order Comment: Speci men Type: BLOOD SPECIMENOrdering Facility: [facility] Address: [address] [place] [address] Performed By: #### 5 7021-8 ####[facility] LABCLIA [id number] [place] [address] [place] Neutrophils/100 WBC (Bld) 68.9 % Normal [facility] Comment on above: Order Comment: Speci men Type: BLOOD SPECIMENOrdering Facility: [facility] Address: [address] [place] [address] Performed By: #### 5 7021-8 ####[facility] LABIA [id number] [place] [address] [place] Nucleated RBC (Bld) [#/Vol] 10*3/uL Normal <0.[address] [facility] Comment on above: Order Comment: Speci men Type: BLOOD SPECIMENOrdering Facility: [facility] Address: [address] [place] [address] Performed By: #### 5 7021-8 ####[facility] LABIA [id number] [place] [address] [place] Nucleated RBC/100 WBC (Bld) [Ratio] 0.0 /100 WBC Normal [facility] Comment on above: Order Comment: Speci men Type: BLOOD SPECIMENOrdering Facility: [facility] Address: [address] [place] [address] Performed By: #### 5 7021-8 ####[facility] LABIA [id number] [place] [address] [place] Platelet mean volume (Bld) [Entitic vol] 10.7 fL Normal 9.0-12.[address] [facility] Comment on above: Order Comment: Speci men Type: BLOOD SPECIMENOrdering Facility: [facility] Address: [address] [place], [place] [address] Performed By: #### 5 7021-8 ####[facility] LABCLIA [id number] [place] [address] [place] Platelets (Bld) [#/Vol] 159 10*3/uL Normal 150-[address] [facility] Comment on above: Order Comment: Speci men Type: BLOOD SPECIMENOrdering Facility: [facility] Address: [address] [place], [place] [address] Performed By: #### 5 7021-8 ####[facility] LABIA [id number] [place] [address] [place] RBC (Bld) [#/Vol] 5.02 10*6/uL Normal 4.20-6.00 [facility] Comment on above: Order Comment: Speci men Type: BLOOD SPECIMENOrdering Facility: [facility] Address: [address] [place], [place] [address] Performed By: #### 5 7021-8 ####[facility] LABIA [id number] [place] [address] [place] WBC (Bld) [#/Vol] 7.35 10*3/uL Normal 3.70-11.00 [facility] Comment on above: Order Comment: Speci men Type: BLOOD SPECIMENOrdering Facility: [facility] Address: [address] [place], [place] [address] Performed By: #### 5 7021-8 ####[facility] LABCLIA [id number] [place] [address] [place] Basophils (Bld) [#/Vol] <0.11 k/uL [facility] Basophils/100 WBC (Bld) 0.3 % [facility] Differential cell count method Nom (Bld) Auto [facility] Eosinophils (Bld) [#/Vol] 0.20 10*3/uL <0.46 k/uL [facility] Eosinophils/100 WBC (Bld) 2.7 % [facility] Erythrocyte distribution width (RBC) [Ratio] 13.6 % 11.5 - 15.0 % [facility] Hematocrit (Bld) [Volume fraction] 47.3 % 39.0 - 51.0 % [facility] Hemoglobin (Bld) [Mass/Vol] 14.6 g/dL 13.0 - 17.0 g/dL [facility] Immature granulocytes (Bld) [#/Vol] <0.10 k/uL [facility] Immature granulocytes/100 WBC (Bld) 0.3 % [facility] Lymphocytes (Bld) [#/Vol] 1.40 10*3/uL 1.00 - 4.00 k/uL [facility] Lymphocytes/100 WBC (Bld) 19.0 % [facility] MCH (RBC) [Entitic mass] 29.1 pg 26.0 - 34.0 pg [facility] MCHC (RBC) [Mass/Vol] 30.9 g/dL 30.5 - 36.0 g/dL [facility] MCV (RBC) [Entitic vol] 94.2 fL 80.0 - 100.0 fL [facility] Monocytes (Bld) [#/Vol] 0.65 10*3/uL <0.87 k/uL [facility] Monocytes/100 WBC (Bld) 8.8 % [facility] Neutrophils (Bld) [#/Vol] 5.06 10*3/uL 1.45 - 7.50 k/uL [facility] Neutrophils/100 WBC (Bld) 68.9 % [facility] Nucleated RBC (Bld) [#/Vol] <0.01 k/uL [facility] Nucleated RBC/100 WBC (Bld) [Ratio] 0.0 /100 WBC [facility] Platelet mean volume (Bld) [Entitic vol] 10.7 fL 9.0 - 12.7 fL [facility] Platelets (Bld) [#/Vol] 159 10*3/uL 150 - 400 k/uL [facility] RBC (Bld) [#/Vol] 5.02 10*6/uL 4.20 - 6.0 0 m/uL [facility] WBC (Bld) [#/Vol] 7.35 10*3/uL 3.70 - 11.00 k/uL [facility] CNOVon 10-25-2022 CNOV Office Visit (ALISSON ) JOSÉ MIGUEL ROTH JRTitus ([id number]) 1940 M Date Time Provider Department 10/25/22 [...] 11/02/2022 10:08 AM Signed [facility] Jose Martin Silva Department of Cardiovascular Medicine SECTION OF CARDIOVASCULAR IMAGING OUTPATIENT VISIT DATE October 26, 2022 OUTPATIENT VISIT TYPE ESTABLISHED PRIMARY CARE PHYSICIAN: Francisca Thompson MD [address] [place] [address] REFERRING PHYSICIAN: Andreas Del Cid [id number] [facility] [id number] CHIEF COMPLAINT: Follow up HISTORY OF PRESENT [...] 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 Dyslipidemia GERD (gastroesophageal reflux disease) Heart failure, acute systolic ([facility]) Hypertension Hypothyroid Myocardial infarct, old Occlusion and stenosis of carotid artery without mention of cerebral infarction Prostate cancer ([facility]) 2020 PVD (peripheral vascular disease) ([facility]) 11/17/2012 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 Systolic heart failure ([facility]) Thyroid disorder Ventricular tachycardia 04/28/2012 PAST SURGICAL [...] Artery Disease Father Heart Attack Father fatal [place] at age 77 other (atrial fibrillation) Mother other (CHF) Mother other (Other) Mother at age 96 Ischemic Heart Disease Brother CABGx6 first at age 72 No Known Problems Daughter No Known Problems Daughter No Known Problems Daughter other (Other) Other paternal cousin at age 50 of [place] ALLERGIES: ALLERGIES Allergen Reactions Latex Rash Adhesive [...] care, B (more content not included)... Normal [facility] Comprehensive metabolic 2000 panelon 10-25-2022 Albumin [Mass/Vol] 4.0 g/dL Normal 3.9-4.9 [facility] Comment on above: Order Comment: Speci men Type: BLOOD SPECIMENOrdering Facility: [facility] Address: [address] [address] Performed By: #### 2 4323-8 ####[facility] LABCLIA [id number] [place] [address] [place] ALP [Catalytic activity/Vol] 103 U/L Normal 38-[address] [facility] Comment on above: Order Comment: Speci men Type: BLOOD SPECIMENOrdering Facility: [facility] Address: [address] [address] Performed By: #### 2 4323-8 ####[facility] LABIA [id number] [address] [place] ALT [Catalytic activity/Vol] 15 U/L Normal 10-[address] [facility] Comment on above: Order Comment: Speci men Type: BLOOD SPECIMENOrdering Facility: [facility] Address: [address] [address] Performed By: #### 2 4323-8 ####[facility] LABCLIA [id number] [place] [address] [place] Anion gap [Moles/Vol] 17 mmol/L Normal 9-[address] [facility] Comment on above: Order Comment: Speci men Type: BLOOD SPECIMENOrdering Facility: [facility] Address: [address] [place] [address] Performed By: #### 2 4323-8 ####[facility] LABCLIA [id number] [place] [address] [place] AST [Catalytic activity/Vol] 26 U/L Normal 14-[address] [facility] Comment on above: Order Comment: Speci men Type: BLOOD SPECIMENOrdering Facility: [facility] Address: [address] [place], [place] [address] Performed By: #### 2 4323-8 ####[facility] LABCLIA [id number] [place] [address] [place] Bilirubin [Mass/Vol] 0.6 mg/dL Normal 0.2-1.[address] [facility] Comment on above: Order Comment: Speci men Type: BLOOD SPECIMENOrdering Facility: [facility] Address: [address] Performed By: #### 2 4323-8 ####[facility] LABCLIA [id number] [place] [address] [place] Calcium [Mass/Vol] 10.2 mg/dL Normal 8.5-10.2 [facility] Comment on above: Order Comment: Speci men Type: BLOOD SPECIMENOrdering Facility: [facility] Address: [address] [address] Performed By: #### 2 4323-8 ####[facility] LABCLIA [id number] [place] [address] [place] Chloride [Moles/Vol] 103 mmol/L Normal 97-[address] [facility] Comment on above: Order Comment: Speci men Type: BLOOD SPECIMENOrdering Facility: [facility] Address: [address] [place] [address] Performed By: #### 2 4323-8 ####[facility] LABCLIA [id number] [place] [address] [place] CO2 [Moles/Vol] 20 mmol/L Low 22-[address] [facility] Comment on above: Order Comment: Speci men Type: BLOOD SPECIMENOrdering Facility: [facility] Address: [address] [place] [address] Performed By: #### 2 4323-8 ####[facility] LABCLIA [id number] [place] [address] [place] Creatinine [Mass/Vol] 1.89 mg/dL High 0.73-1.[address] [facility] Comment on above: Order Comment: Speci men Type: BLOOD SPECIMENOrdering Facility: [facility] Address: [address] [place] [address] Performed By: #### 2 4323-8 ####[facility] LABCLIA [id number] [place] [address] [place] ESTIMATED GLOMERULAR FILTRATION RATE 35 mL/min/1.73m??? Low >=[address] [facility] Comment on above: Order Comment: Speci men Type: BLOOD SPECIMENOrdering Facility: [facility] Address: [address] [place] [address] Result Comment: Etta mated Glomerular Filtration Rate [...] actual GFR. Performed By: #### 2 4323-8 ####[facility] LABCLIA [id number] [address] [address] [place] Glucose [Mass/Vol] 103 mg/dL High 74-99 [facility] Comment on above: Order Comment: Speci men Type: BLOOD SPECIMENOrdering Facility: [facility] Address: [address] [id number] Result Comment: The [place] [employer] (ADA) provides guidance for cutoff [...] Standards of Medical Care in Diabetes 2016, [place] [employer]. Diabetes Care. 2016.39(Suppl 1). Performed By: #### 2 4323-8 ####[facility] LABCLIA [id number] [place] [address] [place] Potassium [Moles/Vol] 5.5 mmol/L High 3.7-5.[address] [facility] Comment on above: Order Comment: Speci men Type: BLOOD SPECIMENOrdering Facility: [facility] Address: [address] [place] [address] Performed By: #### 2 4323-8 ####[facility] LABCLIA [id number] [address] [address] [place] Protein [Mass/Vol] 7.7 g/dL Normal 6.3-8.0 [facility] Comment on above: Order Comment: Speci men Type: BLOOD SPECIMENOrdering Facility: [facility] Address: [address] [address] Performed By: #### 2 4323-8 ####[facility] LABCLIA [id number] [place] [address] [place] Sodium [Moles/Vol] 140 mmol/L Normal 136-144 [facility] Comment on above: Order Comment: Speci men Type: BLOOD SPECIMENOrdering Facility: [facility] Address: [address] [address] Performed By: #### 2 4323-8 ####[facility] LABCLIA [id number] [place] [address] [place] Urea nitrogen [Mass/Vol] 40 mg/dL High 9-[address] [facility] Comment on above: Order Comment: Speci men Type: BLOOD SPECIMENOrdering Facility: [facility] Address: [address] [place] [address] Performed By: #### 2 4323-8 ####[facility] LABIA [id number] [place] [address] [place] GLUCOSE, BLOOD (POC)on 10-25 Glucose [Mass/Vol] 94 mg/dL 74 - 99 mg/dL [facility] Glucose [Mass/Vol] 101 mg/dL Abnormal 74 - 99 mg/dL [facility] NM PET/CT CARD PERF REST/STR ESSon 10-25-2022 NM PET/CT CARD PERF REST/STRESS * * *Final Report* * * DATE OF EXAM: Oct 25 2022 3:26PM [facility] 0109 - [place] PET/CT CARD PERF REST/STRESS / PROCEDURE REASON: multiple diagnoses * * * * Physician Interpretation * * * * Stress Loading Machine Operator Helper Report: [facility] GOLDIE-2 Date of service: 10/25/2022 1:23:04 PM Supervising physician: Cindy Prince MD PATIENT: Name: MR. JOSÉ MIGUEL ROTH Age: 82 years Gender: M The supervising physician was in the department and immediately available. Final PATIENT: Name: MR. OJSÉ MIGUEL ROTH JR. Age: 82 years Gender: [...] the blood glucose was 101 mg/dl. Main [place] Date of service: 10/25/2022 1:23:04 PM Ordering [...] not reported due to low EF. Final [facility] Report: [facility] Date of service: 10/25/2022 1:23:04 PM CTA interpreting physician: Cindy Prince MD PATIENT: Name: MR. JOSÉ MIGUEL ROTH JR. (more content not included)... Normal [facility] PET/CT CARDIAC VIABILITYo n 10-25-2022 NM PET/CT CARDIAC VIABILITY * * *Final Report* * * DATE OF EXAM: Oct 25 2022 3:26PM [facility] 0102 - [place] PET/CT CARDIAC VIABILITY / PROCEDURE REASON: multiple diagnoses * * * * Physician Interpretation * * * * Stress Loading Machine Operator Helper Report: [facility] Date of service: 10/25/2022 1:23:04 PM [...] rest, the blood glucose was 101 mg/dl. [facility] Date of service: 10/25/2022 1:23:04 PM Ordering [...] not reported due to low EF. Final [facility] Report: [facility] Date of service: 10/25/2022 1:23:04 PM [facility] interpreting physician: Cindy Prince MD PATIENT: Name: MR. SCHSUTER Larry Gallardo (more content not included)... Normal [facility] NT-proBNP [facility] 10-25 Natriuretic peptide.B prohormone N-Terminal [Mass/Vol] 5553 pg/mL High <[address] [facility] Comment on above: Order Comment: Speci men Type: BLOOD SPECIMENOrdering Facility: [facility] Address: [address] [place] [address], [place] [address] Performed By: #### 3 3762-6 ####[facility] LABCLIA [id number] [address]I [id number] [address] [facility] [place] No Panel Informationon 10-25 [facility] CNOVon 10-02-2022 CNOV Office Visit ([facility] ) JOSÉ MIGUEL ROTH JR. ([id number]) 1940 M Date Time Provider Department 10/02/22 [...] PSA 08/2021 36.2. and repeat biopsy showing [place] 7 (3+4) adenocarcinoma. Okay RADIATION SUMMARY: DATES [...] Kim MD cc: Francisca Thompson MD [address] [place] [address] Kathie Pavon RN 10/08/2022 1:29 PM Signed AUA 1.5 Kathie Pavon RN Allergies As of Date: 10/02/2022 Noted Allergy Reaction LATEX 03/13/2019 2 - Rash ADHESIVE TAPE (ROSINS) 06/16/2012 2 - Rash Date Reviewed: 09/03/2022 Reviewed by: Faith Mcduffie - Fully Assessed Reason for Visit: Prostate Cancer [590] Primary Visit Diagnosis:Malignant neoplasm of prostate (HCC) [C61] Order(s):PSA (OUTSIDE) [4048854] Order #: [id number] PSA/PROSTSPECAG DIAG [SQPSA] Order #: [id number] FUTURE Prescriptions as of (more content not included)... Normal [facility] BNPon 12-15-2022 Natriuretic peptide B (Bld) [Mass/Vol] 5149.0 pg/mL Critically high <=1,800.0 [facility] Comment on above: Performed By: #### B MP, BNP #### [facility] [address] [place] [address] Dr. Silva [place] PROF CHEM 8 (BAS METB)on Anion gap [Moles/Vol] 9.3 mmol/L Normal [facility] Comment on above: Performed By: #### B MP, BNP #### [facility] [address] [place] [address] Dr. Silva [place] Calcium [Mass/Vol] 9.5 mg/dL Normal 8.5-10.1 [facility] Comment on above: Performed By: #### B MP, BNP #### [facility] [address] [place] [address] Dr. Silva [place] Chloride [Moles/Vol] 103 mmol/L Normal 98-107 [facility] Comment on above: Performed By: #### B MP, BNP #### [facility] [address] [place] [address] Dr. Silva [place] CO2 [Moles/Vol] 30.2 mmol/L Normal 21.0-32.0 [facility] Comment on above: Performed By: #### B MP, BNP #### [facility] [address] [place] [address] Dr. Silva [place] Creatinine [Mass/Vol] 1.86 mg/dL Critically high 0.70-1.30 [facility] Comment on above: Performed By: #### B MP, BNP #### [facility] [address] [place] [address] Dr. Silva [place] EGFR-AF JAPANESE 43 mL/min/1.73m2 Critically low >=60 [facility] Comment on above: Performed By: #### B MP, BNP #### [facility] [address] [place] [address] Dr. Silva [place] EGFR-NON AF JAPANESE 35 mL/min/1.73m2 Critically low >=60 [facility] Comment on above: Performed By: #### B MP, BNP #### [facility] [address] [address] [address] Silva [place] Glucose [Mass/Vol] 108 mg/dL Critically high 74-106 [facility] Comment on above: Performed By: #### B MP, BNP #### [facility] [address] [address] [address] Silva [place] Potassium [Moles/Vol] 4.5 mmol/L Normal 3.5-5.1 [facility] Comment on above: Performed By: #### B MP, BNP #### [facility] [address] [address] [address] Silva [place] Sodium [Moles/Vol] 138 mmol/L Normal 136-145 [facility] Comment on above: Performed By: #### B MP, BNP #### [facility] [address] [place] [address] Dr. Silva [place] Urea nitrogen [Mass/Vol] 27.0 mg/dL Critically high 7.0-18.0 [facility] Comment on above: Performed By: #### B MP, BNP #### [facility] [address] [place] [address] Dr. Silva [place] Urea nitrogen/Creatinine [Mass ratio] 14.5 mg/mg Normal [facility] Comment on above: Performed By: #### B MP, BNP #### [facility] [address] [place] [address] Dr. Silva [place] ICD REMOTE CHECKon 2 AV Delay Adaptive Paced Minimum (ms) 200 ms [facility] AV Delay Adaptive Sensed Minimum (ms) 170 ms [facility] Bj RA Pacing Amplitude (volts) 2 V [facility] Bj RA Pacing Polarity BI [facility] Bj RA Pacing Pulse Width (ms) 0.5 ms [facility] Bj RA Sensing Amplitude (mvolts) 0.25 mV [facility] Bj RA Sensing Polarity BI [facility] Bj RV Pacing Amplitude (volts) 2 V [facility] Bj RV Pacing Polarity BI [facility] Bj RV Pacing Pulse Width (ms) 0.5 ms [facility] Bj RV Sensing Amplitude (mvolts) 0.3 mV [facility] Bj RV Sensing Polarity BI [facility] Detection Configuration (Vent) 2 - Zone [facility] FastVT_Detection Interval 250 ms [facility] FastVT_Therapy Configuration 1 ATP(s) + 8 Shock(s) [facility] ICD FastVT DetectionStatus ENABLED [facility] ICD-AMS EPISODES 170 {beats}/min [facility] ICD-ATP Episodes (Vent) 0 [facility] ICD-ATRIALFIBRILLAT ION 0 [facility] ICD-ATRIALTACHYCARD IA 1 [facility] ICD-Device Mfg BSX [facility] ICD-Fast Ventricular Tachycardia 1 [facility] ICD-LEADIMPEDANCEAT RIAL 743 ohm [facility] ICD-Percent Pacing (Atrial) 0 % [facility] ICD-Percent Pacing (Vent) 0 % [facility] ICD-Shocks Aborted (Vent) 0 [facility] BTW-VNMNND-OLPWWQUD D 0 [facility] ICD-SHOCKSABORTED 0 [facility] ICD-SHOCKSDELIVERED VENTRICULAR 0 [facility] ICD-Ventricular Fibrillation 0 [facility] Lead Impedance (RV) 431 ohm [facility] Lead Impedance High Voltage 48 ohm [facility] Lead1 Mfg BSX [facility] Lead2 Mfg BSX [facility] Location RV [facility] Location RA [facility] Lower Rate (bpm) 50 {beats}/min [facility] Max Sensor Rate (bpm) 130 {beats}/min [facility] MDT_PROG_TACHY_ZONE _DETECTIONS_STATUS ENABLED [facility] Model D142 INOGEN [facility] Model 0675 [place] 4-Front [facility] Model 7741 Ingevity MRI [facility] Pacing Mode DDDR [facility] Serial Number [id number] [facility] Serial Number [id number] [facility] Serial Number [id number] [facility] Test Charge Energy 23 J [facility] Test Charge Time 10.1 s [facility] Therapy Status (Vent) Enabled [facility] Thresh RA Capture Amplitude (volts) 0.6 V [facility] Thresh RA Capture Duration (ms) 0.5 ms [facility] Thresh RV Capture Amplitude (VOLTS) 0.5 V [facility] Thresh RV Capture Duration (MS) 0.5 ms [facility] Tracking Rate (bpm) 130 {beats}/min [facility] VF Zone Detection Interval 250 ms [facility] Therapy Configuration 1 ATP(s) + 8 Shock(s) [facility] No Panel Informationon 08-07 BLANK _ [facility] ICD-ATRIALTACHYCARD IA 0 [facility] ICD-Fast Ventricular Tachycardia 0 [facility] Implant Date 03/24/2019 [facility] Documentationon 07-26-2022 Documentation [id number] Pramod Roth 1940 M Date Provider Department Center 07/26/2022 NELDA VIVEROS [facility] [facility] Family History Problem Relation Age of Onset Coronary artery disease Father Coronary artery disease Brother Family Status - Relation Status Age at Father Brother Normal [facility] BNPon 07-23-2022 Natriuretic peptide B (Bld) [Mass/Vol] 5638.0 pg/mL Critically high <=1,800.0 [facility] Comment on above: Performed By: #### B MP, BNP, LIPID #### [facility] [address] [address] [address] Silva Burnett Follow-Upon 07-23-2022 Follow-Up [id number] Pramod Roth 1940 Date Provider Department Center 07/23/2022 MALAIKA ARELLANO [facility] Family History Problem Relation Age of Onset Coronary artery disease Father Coronary artery disease Brother Family Status - Relation Status Age at Father Brother Level of Service:42769 HI OFFICE/OUTPATIENT ESTABLISHED MOD MDM 30-39 MIN Normal [facility] LIPID PROFILEon 07-23-2022 CHOL-HDL RATIO NORM SEE BELOW Normal [facility] Comment on above: Result Comment: 3.3 - 4.4 LOW RISK 4.4 - 7.1 AVERAGE RISK 7.1 - 11.0 MODERATE RISK >11.0 HIGH RISK Performed By: #### B MP, BNP, LIPID #### [facility] [address] [address] [address] Silva Burnett Cholesterol [Mass/Vol] 126 mg/dL Normal <=200 [facility] Comment on above: Performed By: #### B MP, BNP, LIPID #### [facility] [address], [place] [address] Dr. Silva Burnett Cholesterol in HDL [Mass/Vol] 51 mg/dL Normal 40-60 [facility] Comment on above: Performed By: #### B MP, BNP, LIPID #### [facility] [address] [address] [address] Silva Burnett Cholesterol in LDL [Mass/Vol] 61.4 mg/dL Normal [facility] Comment on above: Performed By: #### B MP, BNP, LIPID #### [facility] [address] [address] [address] Silva Burnett Cholesterol.total/C holesterol in HDL [Mass ratio] 2.5 {ratio} Normal [facility] Comment on above: Performed By: #### B MP, BNP, LIPID #### [facility] [address] [address] [address] Silva Burnett HDL NORMAL > or = 60 mg/dl - LO W CARDIOVASCULAR RISK <40 mg/dl - HIGH CARDIOVASCULAR RISK Normal [facility] Comment on above: Performed By: #### B MP, BNP, LIPID #### [facility] [address] [address] [address] Silva Burnett LDL CALC NORMAL SEE BELOW Normal [facility] Comment on above: Result Comment: <100 mg/dl OPTIMAL 100 - 129 mg/dl NEAR OR ABOVE OPTIMAL 130 - 159 mg/dl BORDERLINE HIGH 160 - 189 mg/dl HIGH >190 mg/dl VERY HIGH Performed By: #### B MP, BNP, LIPID #### [facility] [address] [address] [address] Silva Burnett Triglyceride [Mass/Vol] 68 mg/dL Normal <=150 [facility] Comment on above: Performed By: #### B MP, BNP, LIPID #### [facility] [address] [address] [address] Silva Burnett VLDL CALC 13.6 mg/dL Normal [facility] Comment on above: Performed By: #### B MP, BNP, LIPID #### [facility] [address] [place] [address] Dr. Silva Burnett PROF CHEM 8 (BAS METB)on Anion gap [Moles/Vol] 10.2 mmol/L Normal [facility] Comment on above: Performed By: #### B MP, BNP, LIPID #### [facility] [address] [place] [address] Dr. Silva Burnett Calcium [Mass/Vol] 9.3 mg/dL Normal 8.5-10.1 [facility] Comment on above: Performed By: #### B MP, BNP, LIPID #### [facility] [address] [place] [address] Dr. Silva Burnett Chloride [Moles/Vol] 102 mmol/L Normal 98-107 [facility] Comment on above: Performed By: #### B MP, BNP, LIPID #### [facility] [address] [place] [address] Dr. Silva Burnett CO2 [Moles/Vol] 29.7 mmol/L Normal 21.0-32.0 [facility] Comment on above: Performed By: #### B MP, BNP, LIPID #### [facility] [address] [place] [address] Dr. Silva Burnett Creatinine [Mass/Vol] 1.68 mg/dL Critically high 0.70-1.30 [facility] Comment on above: Performed By: #### B MP, BNP, LIPID #### [facility] [address] [place] [address] Dr. Silva Burnett EGFR-AF JAPANESE 48 mL/min/1.73m2 Critically low >=60 [facility] Comment on above: Performed By: #### B MP, BNP, LIPID #### [facility] [address] [place] [address] Dr. Silva Burnett EGFR-NON AF JAPANESE 40 mL/min/1.73m2 Critically low >=60 [facility] Comment on above: Performed By: #### B MP, BNP, LIPID #### [facility] [address] [place] [address] Dr. Silva Burnett Glucose [Mass/Vol] 97 mg/dL Normal 74-106 [facility] Comment on above: Performed By: #### B MP, BNP, LIPID #### [facility] [address] [place] [address] Dr. Silva Burnett Potassium [Moles/Vol] 3.9 mmol/L Normal 3.5-5.1 [facility] Comment on above: Performed By: #### B MP, BNP, LIPID #### [facility] [address] [address] [address] Silva Burnett Sodium [Moles/Vol] 138 mmol/L Normal 136-145 [facility] Comment on above: Performed By: #### B MP, BNP, LIPID #### [facility] [address] [address] [address] Silva Burnett Urea nitrogen [Mass/Vol] 28.0 mg/dL Critically high 7.0-18.0 [facility] Comment on above: Performed By: #### B MP, BNP, LIPID #### [facility] [address] [place] [address] Dr. Silva Burnett Urea nitrogen/Creatinine [Mass ratio] 16.7 mg/mg Normal [facility] Comment on above: Performed By: #### B MP, BNP, LIPID #### [facility] [address] [place] [address] Dr. Silva Burnett FREE T3on 07-18-2022 FREE T3 3.48 pg/mlL Normal 2.18-3.98 [facility] Comment on above: Performed By: #### V ITAD #### [facility] [address] [place] [address] Dr. Silva Burnett FREE T4on 07-18-2022 Free T4 [Mass/Vol] 0.76 ng/dL Normal 0.76-1.46 [facility] Comment on above: Performed By: #### F T4 #### [facility] [address] [place] [address] Dr. Silva Burnett TSHon 07-18-2022 TSH 0.074 uIU/mL Critically low 0.358-3.740 [facility] Comment on above: Performed By: #### V ITAD #### [facility] [address] [place] [address] Dr. Silva Burnett 36on 07-04-2022 36 Janusz from [facility] cardiac rehab stopped by the office to make us aware that patient reported his dizziness to PCP (Dr. Thompson) and he advised him to hold spironolactone for now. Janusz said his BP was 100/60. He was advised to monitor his weight also. He is still taking Farxiga. Normal [facility] TESTOSTERONE, FREE,DIRECT, T OTALon 07-02-2022 Free Testosterone(Direct ) 1.2 pg/mL Critically low 6.6-18.1 [facility] Comment on above: Result Comment: Perf ormed at: BN Performed By: #### B MP, BNP #### [facility] [address] [place] [address] Dr. Silva Burnett Testosterone [Mass/Vol] 103 ng/dL Critically low 264-916 [facility] Comment on above: Result Comment: Adul t male reference interval is based on a population of healthy nonobese males (BMI <30) between 19 and 39 years old. Keisha et.al. JCEM 2017,102;9780-2140. PMID: [id number]. Performed at: CB Performed By: #### B MARQUEZ, BNP #### [facility] [address] [place] [address] Dr. Silva Burnett CORTISOLon 06-29-2022 Cortisol 9.8 ug/dL Normal [facility] Comment on above: Result Comment: Dale isol AM 6.2 - 19.4 Cortisol PM 2.3 - 11.9 Performed By: #### B MARQUEZ, BNP #### [facility] [address] [place] [address] Dr. Silva Burnett BNPon 06-27-2022 Natriuretic peptide B (Bld) [Mass/Vol] 5384.0 pg/mL Critically high <=1,800.0 [facility] Comment on above: Performed By: #### B MP, BNP #### [facility] [address] [place] [address] Dr. Silva Burnett CBC AUTO DIFFon 06-27-2022 BASO # 0.0 103/ul Normal 0.0-0.1 [facility] Comment on above: Performed By: #### B MP, BNP #### [facility] [address] [place] [address] Dr. Silva Burnett Basophils/100 WBC (Bld) 0.6 % Normal 0.2-2.0 [facility] Comment on above: Performed By: #### B MP, BNP #### [facility] [address] [place] [address] Dr. Silva Burnett EO # 0.4 103/ul Normal 0.0-0.7 [facility] Comment on above: Performed By: #### B MP, BNP #### [facility] [address] [place] [address] Dr. Silva Burnett Eosinophils/100 WBC (Bld) 8.0 % Critically high 0.9-7.0 [facility] Comment on above: Performed By: #### B MP, BNP #### [facility] [address] [place] [address] Dr. Silva Burnett Erythrocyte distribution width (RBC) [Ratio] 15.3 % Critically high 11.0-15.0 [facility] Comment on above: Performed By: #### B MP, BNP #### [facility] [address] [place] [address] Dr. Silva Burnett Hematocrit (Bld) [Volume fraction] 41.0 % Critically low 42.0-54.0 [facility] Comment on above: Performed By: #### B MP, BNP #### [facility] [address] [place] [address] Dr. Silva Burnett Hemoglobin (Bld) [Mass/Vol] 12.8 g/dL Critically low 14.0-18.0 [facility] Comment on above: Performed By: #### B MP, BNP #### [facility] [address] [place] [address] Dr. Silva Burnett IG # 0.02 10e3/ul Normal 0.00-0.03 [facility] Comment on above: Performed By: #### B MP, BNP #### [facility] [address] [place] [address] Dr. Silva Burnett IG % 0.4 % Normal 0.0-0.5 [facility] Comment on above: Performed By: #### B MP, BNP #### [facility] [address] [place] [address] Dr. Silva Burnett LYMPH # 1.3 103/ul Normal 1.2-3.8 [facility] Comment on above: Performed By: #### B MP, BNP #### [facility] [address] [place] [address] Dr. Silva Burnett Lymphocytes/100 WBC (Bld) 25.8 % Normal 20.5-60.0 [facility] Comment on above: Performed By: #### B MP, BNP #### [facility] [address] [place] [address] Dr. Silva Burnett MANUAL DIFF REQ NO Normal [facility] Comment on above: Performed By: #### B MP, BNP #### [facility] [address] [place] [address] Dr. Silva Burnett MCH (RBC) [Entitic mass] 28.9 pg Normal 25.9-34.0 [facility] Comment on above: Performed By: #### B MP, BNP #### [facility] [address] [place] [address] Dr. Silva Burnett MCHC (RBC) [Mass/Vol] 31.2 g/dL Normal 29.9-35.2 [facility] Comment on above: Performed By: #### B MP, BNP #### [facility] [address] [place] [address] Dr. Silva Burnett MCV (RBC) [Entitic vol] 92.6 fL Normal 80.0-94.0 [facility] Comment on above: Performed By: #### B MP, BNP #### [facility] [address] [place] [address] Dr. Silva Burnett MONO # 0.6 103/ul Normal 0.3-0.8 [facility] Comment on above: Performed By: #### B MP, BNP #### [facility] [address] [place] [address] Dr. Silva Burnett Monocytes/100 WBC (Bld) 11.1 % Normal 1.7-12.0 [facility] Comment on above: Performed By: #### B MP, BNP #### [facility] [address] [address] [address] Silva Burnett NEUT # 2.8 103/ul Normal 1.4-6.5 [facility] Comment on above: Performed By: #### B MP, BNP #### [facility] [address] [address] [address] Silva Burnett Neutrophils/100 WBC (Bld) 54.1 % Normal 43.0-75.0 [facility] Comment on above: Performed By: #### B MP, BNP #### [facility] [address] [address] [address] Silva Burnett Platelet mean volume (Bld) [Entitic vol] 10.0 fL Normal 9.5-13.5 [facility] Comment on above: Performed By: #### B MP, BNP #### [facility] [address] [place] [address] Dr. Silva Burnett PLT 144 103/ul Critically low 150-450 [facility] Comment on above: Performed By: #### B MP, BNP #### [facility] [address] [place] [address] Dr. Silva Burnett RBC 4.43 106/ul Critically low 4.70-6.10 [facility] Comment on above: Performed By: #### B MP, BNP #### [facility] [address] [place] [address] Dr. Silva Burnett WBC 5.1 103/ul Normal 4.0-11.0 [facility] Comment on above: Performed By: #### B MP, BNP #### [facility] [address] [place] [address] Dr. Silva Burnett PROF CHEM 8 (BAS METB)on Anion gap [Moles/Vol] 10.2 mmol/L Normal [facility] Comment on above: Performed By: #### B MP, BNP #### [facility] [address] [place] [address] Dr. Silva Burnett Calcium [Mass/Vol] 8.9 mg/dL Normal 8.5-10.1 [facility] Comment on above: Performed By: #### B MP, BNP #### [facility] [address] [address] [address] Silva Burnett Chloride [Moles/Vol] 104 mmol/L Normal 98-107 [facility] Comment on above: Performed By: #### B MP, BNP #### [facility] [address] [address] [address] Silva Burnett CO2 [Moles/Vol] 27.1 mmol/L Normal 21.0-32.0 [facility] Comment on above: Performed By: #### B MP, BNP #### [facility] [address] [address] [address] Silva Burnett Creatinine [Mass/Vol] 1.61 mg/dL Critically high 0.70-1.30 [facility] Comment on above: Performed By: #### B MP, BNP #### [facility] [address] [address] [address] Silva Burnett EGFR-AF JAPANESE 50 mL/min/1.73m2 Critically low >=60 [facility] Comment on above: Performed By: #### B MP, BNP #### [facility] [address] [address] [address] Silva Burnett EGFR-NON AF JAPANESE 41 mL/min/1.73m2 Critically low >=60 [facility] Comment on above: Performed By: #### B MP, BNP #### [facility] [address] [address] [address] Silva Burnett Glucose [Mass/Vol] 89 mg/dL Normal 74-106 [facility] Comment on above: Performed By: #### B MP, BNP #### [facility] [address] [address] [address] Silva Burnett Potassium [Moles/Vol] 4.3 mmol/L Normal 3.5-5.1 [facility] Comment on above: Performed By: #### B MP, BNP #### [facility] [address] [address] [address] Silva Burnett Sodium [Moles/Vol] 137 mmol/L Normal 136-145 [facility] Comment on above: Performed By: #### B MP, BNP #### [facility] [address] [address] [address] Silva Burnett Urea nitrogen [Mass/Vol] 28.0 mg/dL Critically high 7.0-18.0 [facility] Comment on above: Performed By: #### B MP, BNP #### [facility] [address] [address] [address] Silva Burnett Urea nitrogen/Creatinine [Mass ratio] 17.4 mg/mg Normal [facility] Comment on above: Performed By: #### B MP, BNP #### [facility] [address] [place] [address] Dr. Silva Burnett VITAMIN D 25 OHon 06-27-2022 VIT D 25-OH 85.2 ng/mL Normal [facility] Comment on above: Performed By: #### V ITAD #### [facility] [address] [address] [address] Silva Burnett VIT D RANGES SEE BELOW Normal [facility] Comment on above: Result Comment: <20 ng/mL Vit D deficient 20 - <30 ng/mL Vit D insufficient 30 - 100 ng/mL Vit D sufficient >100 ng/mL Potential Toxicity Performed By: #### V ITAD #### [facility] [address] [place] [address] Dr. Silva Burnett 36on 06-26-2022 36 Patient [...] made him aware. He verbalized understanding. Normal [facility] Telephoneon 06-26-2022 Telephone [id number] Pramod Roth dg Juarez 1940 M Date Provider Department Center 06/26/2022 LYNNETTE RAMSEY [facility] Family History Problem Relation Age of Onset Coronary artery disease Father Coronary artery disease Brother Family Status - Relation Status Age at Father Brother Normal [facility] CREATININEon 06-14-2022 Creatinine [Mass/Vol] 1.71 mg/dL Critically high 0.70-1.30 [facility] Comment on above: Performed By: #### B MP, BNP #### [facility] [address], [place] [address] Dr. Silva Burnett EGFR-AF JAPANESE 47 mL/min/1.73m2 Critically low >=60 [facility] Comment on above: Performed By: #### B MP, BNP #### [facility] [address], [place] [address] Dr. Silva Burnett EGFR-NON AF JAPANESE 39 mL/min/1.73m2 Critically low >=60 [facility] Comment on above: Performed By: #### B MP, BNP #### [facility] [address], [place] [address] Dr. Silva Burnett CTA NECK WO W [...] by: AYANA FERNANDEZ Date: 2022-06-14 16:39 Normal [facility] Telephoneon 06-08-2022 Telephone [id number] Pramod Roth 1940 M Date Provider Department Center 06/08/2022 [id number] MONAE GLV [facility] Family History Problem Relation Age of Onset Coronary artery disease Father Coronary artery disease Brother Family Status - Relation Status Age at Father Brother Normal [facility] Orders Onlyon 06-01-2022 Orders Only [id number] Pramod Roth L 1940 M Date Provider Department Center 06/01/2022 KATHIE CHAMPION [facility] Family History Problem Relation Age of Onset Coronary artery disease Father Coronary artery disease Brother Family Status - Relation Status Age at Father Brother Normal [facility] Office Visiton 05-28-2022 Follow-up visit [id number] Pramod Roth L 1940 Date Provider Department Center 05/28/2022 Angela-MALAIKA FAUST [facility] Family History Problem Relation Age of Onset Coronary artery disease Father Coronary artery disease Brother Family Status - Relation Status Age at Father Brother Level of Service:98865 HI OFFICE/OUTPATIENT ESTABLISHED HIGH MDM 40-54 MIN Reason for Visit and Comments: Coronary Artery Disease [187] Congestive Heart Failure [127] NSVT [Other] Claudication [131] Valve Disorder [3372] Hyperlipidemia [182] Hypertension [886051] Normal [facility] Orders Onlyon 05-28-2022 Orders Only [id number] Pramod Roth L 1940 M Date Provider Department Center 05/28/2022 Nataliya8-ZUNILDA ALANIZ [facility] Family History Problem Relation Age of Onset Coronary artery disease Father Coronary artery disease Brother Family Status - Relation Status Age at Father Brother Normal [facility] Abstracton 05-26-2022 Abstract [id number] Pramod Roth L 1940 Date Provider Department Center 05/26/2022 LYNNETTE RAMSEY [facility] Family History Problem Relation Age of Onset Coronary artery disease Father Coronary artery disease Brother Family Status - Relation Status Age at Father Brother Normal [facility] BASIC METABOLIC PANELon 09-0 -2021 Calcium [Mass/Vol] 8.8 mg/dL Normal 8.6-10.3 [facility] Comment on above: Order Comment: No: D o not add to previous draw Performed By: #### 2 5508, 62934, 68935, 25041, 44021, 47530 #### [facility] [address] [place] [address], [place] Chloride [Moles/Vol] 103 mmol/L Normal 98-107 [facility] Comment on above: Order Comment: No: D o not add to previous draw Performed By: #### 2 5508, 73795, 03996, 71169, 58933, 56292 #### [facility] [address] [place] [address], [place] CO2 [Moles/Vol] 28 mmol/L Normal 21-31 [facility] Comment on above: Order Comment: No: D o not add to previous draw Performed By: #### 2 5508, 11269, 76617, 77781, 96225, 54443 #### [facility] [address] [place] [address], [place] Creatinine [Mass/Vol] 1.47 mg/dL High 0.70-1.30 [facility] Comment on above: Order Comment: No: D o not add to previous draw Performed By: #### 2 5508, 50197, 59477, 40420, 79647, 65875 #### [facility] [address] [place] [address], [place] EGFR 48 ml/min/1.73sq m Abnormal >60 [facility] Comment on above: Order Comment: No: D o not add to previous draw Result Comment: [facility]'s estimated glomerular filtration rate (eGFR) will no [...] of individuals. Performed By: #### 2 5508, 97645, 38675, 05415, 12034, 40058 #### [facility] [address] [place] [address], [place] Glucose [Mass/Vol] 110 mg/dL High 70-100 [facility] Comment on above: Order Comment: No: D o not add to previous draw Performed By: #### 2 5508, 79795, 93241, 02750, 31545, 93292 #### [facility] [address] [place] [address], [place] Potassium [Moles/Vol] 4.3 mmol/L Normal 3.5-5.1 [facility] Comment on above: Order Comment: No: D o not add to previous draw Performed By: #### 2 5508, 85401, 67422, 39100, 92188, 07705 #### [facility] [address] [place] [address], [place] Sodium [Moles/Vol] 136 mmol/L Normal 136-145 [facility] Comment on above: Order Comment: No: D o not add to previous draw Performed By: #### 2 5508, 13440, 54476, 29864, 69188, 58615 #### [facility] [address] [place] [address], [place] Urea nitrogen [Mass/Vol] 35 mg/dL High 7-25 [facility] Comment on above: Order Comment: No: D o not add to previous draw Performed By: #### 2 5508, 04436, 60328, 87375, 11560, 18627 #### [facility] [address] [place] [address], [facility] MAGNESIUM BLOODon 05-23-2022 Magnesium [Mass/Vol] 2.2 mg/dL Normal 1.9-2.7 [facility] Comment on above: Order Comment: No: D o not add to previous draw Performed By: #### 2 5508, 48360, 68230, 77995, 12741, 40459 #### [facility] [address] [place] [address], [facility] APTTon 05-22-2022 aPTT Coag (Bld) [Time] 28.0 s Normal 25.0-35.0 [facility] Comment on above: Order Comment: No: D [...] THIS PURPOSE. Performed By: #### 2 5508, 98256, 01674, 44568, 23118, 35573 #### [facility] [address] [place] [address], [facility] BASIC METABOLIC PANELon Calcium [Mass/Vol] 9.0 mg/dL Normal 8.6-10.3 [facility] Comment on above: Order Comment: No: D o not add to previous draw Performed By: #### 2 5508, 25468, 74334, 89894, 87333, 97098 #### [facility] [address] [place] [address], [facility] Chloride [Moles/Vol] 101 mmol/L Normal 98-107 [facility] Comment on above: Order Comment: No: D o not add to previous draw Performed By: #### 2 5508, 27751, 69476, 24227, 88382, 86614 #### [facility] [address] [place] [address], [facility] CO2 [Moles/Vol] 29 mmol/L Normal 21-31 [facility] Comment on above: Order Comment: No: D o not add to previous draw Performed By: #### 2 5508, 97147, 70448, 42477, 36567, 50915 #### [facility] [address] [place] [address], [facility] Creatinine [Mass/Vol] 1.67 mg/dL High 0.70-1.30 [facility] Comment on above: Order Comment: No: D o not add to previous draw Performed By: #### 2 5508, 65394, 69527, 38172, 03585, 71609 #### [facility] [address] [place] [address], [facility] EGFR 41 ml/min/1.73sq m Abnormal >60 [facility] Comment on above: Order Comment: No: D o not add to previous draw Result Comment: [facility]'s estimated glomerular filtration rate (eGFR) will no [...] of individuals. Performed By: #### 2 5508, 05500, 53398, 01291, 22095, 83037 #### [facility] [address] [place] [address], [place] Glucose [Mass/Vol] 94 mg/dL Normal 70-100 [facility] Comment on above: Order Comment: No: D o not add to previous draw Performed By: #### 2 5508, 81225, 93594, 53108, 56395, 59620 #### [facility] [address] [place] [address], [facility] Potassium [Moles/Vol] 4.8 mmol/L Normal 3.5-5.1 [facility] Comment on above: Order Comment: No: D o not add to previous draw Performed By: #### 2 5508, 78176, 01586, 25679, 67380, 30309 #### [facility] [address] [place] [address], [facility] Sodium [Moles/Vol] 136 mmol/L Normal 136-145 [facility] Comment on above: Order Comment: No: D o not add to previous draw Performed By: #### 2 5508, 54444, 06283, 57320, 90471, 52097 #### [facility] [address] [place] [address], [facility] Urea nitrogen [Mass/Vol] 39 mg/dL High 7-25 [facility] Comment on above: Order Comment: No: D o not add to previous draw Performed By: #### 2 5508, 09035, 08886, 92963, 72859, 80745 #### [facility] [address] [place] [id number], [facility] MAGNESIUM BLOODon 05-22-2022 Magnesium [Mass/Vol] 1.8 mg/dL Low 1.9-2.7 [facility] Comment on above: Order Comment: No: D o not add to previous draw Performed By: #### 2 5508, 44462, 33962, 90451, 98638, 52943 #### [facility] [address] [place] [address], [place] APTTon 05-21-2022 aPTT Coag (Bld) [Time] 30.8 s Normal 25.0-35.0 [facility] Comment on above: Order Comment: No: D [...] THIS PURPOSE. Performed By: #### 2 5508, 23045, 56694, 10032, 27785, 60337 #### [facility] [address] [place] [address], [facility] BASIC METABOLIC PANELon 09-0 -2021 Calcium [Mass/Vol] 8.8 mg/dL Normal 8.6-10.3 [facility] Comment on above: Order Comment: No: D o not add to previous draw Performed By: #### 2 5508, 56585, 92389, 79475, 67767, 78561 #### [facility] [address] [place] [address], [facility] Chloride [Moles/Vol] 103 mmol/L Normal 98-107 [facility] Comment on above: Order Comment: No: D o not add to previous draw Performed By: #### 2 5508, 66248, 91002, 36861, 99425, 54637 #### [facility] [address] [place] [address], [facility] CO2 [Moles/Vol] 26 mmol/L Normal 21-31 [facility] Comment on above: Order Comment: No: D o not add to previous draw Performed By: #### 2 5508, 50493, 31321, 01318, 15197, 88939 #### [facility] [address] [place] [address], [place] Creatinine [Mass/Vol] 1.47 mg/dL High 0.70-1.30 [facility] Comment on above: Order Comment: No: D o not add to previous draw Performed By: #### 2 5508, 12442, 30791, 52904, 28930, 87718 #### [facility] [address] [place] [address], [facility] EGFR 48 ml/min/1.73sq m Abnormal >60 [facility] Comment on above: Order Comment: No: D o not add to previous draw Result Comment: [facility]'s estimated glomerular filtration rate (eGFR) will no [...] of individuals. Performed By: #### 2 5508, 78399, 09884, 94041, 88885, 26877 #### [facility] [address] [place] [address], [place] Glucose [Mass/Vol] 88 mg/dL Normal 70-100 [facility] Comment on above: Order Comment: No: D o not add to previous draw Performed By: #### 2 5508, 85513, 40769, 13171, 13631, 72336 #### [facility] [address] [place] [address], [place] Potassium [Moles/Vol] 3.9 mmol/L Normal 3.5-5.1 [facility] Comment on above: Order Comment: No: D o not add to previous draw Performed By: #### 2 5508, 57077, 05884, 08555, 31521, 91649 #### [facility] [address] [place] [address], [place] Sodium [Moles/Vol] 137 mmol/L Normal 136-145 [facility] Comment on above: Order Comment: No: D o not add to previous draw Performed By: #### 2 5508, 69587, 41570, 36037, 93963, 45839 #### [facility] [address] [place] [address], [place] Urea nitrogen [Mass/Vol] 45 mg/dL High 7-25 [facility] Comment on above: Order Comment: No: D o not add to previous draw Performed By: #### 2 5508, 22982, 68346, 58246, 92741, 13393 #### [facility] [address] [place] [address], [facility] CBC COMPLETE BLOOD COUNTon 0 05-21-2022 Erythrocyte distribution width (RBC) [Ratio] 14.4 % Normal 11.5-15.0 [facility] Comment on above: Order Comment: No: D o not add to previous draw Performed By: #### 2 5508, 62981, 38019, 02506, 96276, 96458 #### [facility] [address] [place] [address], [facility] Hematocrit (Bld) [Volume fraction] 40.8 % Normal 39.0-50.0 [facility] Comment on above: Order Comment: No: D o not add to previous draw Performed By: #### 2 5508, 05010, 83949, 05870, 75420, 97163 #### [facility] [address] [place] [address], [facility] Hemoglobin (Bld) [Mass/Vol] 13.3 g/dL Normal 13.0-17.0 [facility] Comment on above: Order Comment: No: D o not add to previous draw Performed By: #### 2 5508, 55148, 26663, 41465, 18473, 09272 #### [facility] [address] [place] [address], [place] MCH (RBC) [Entitic mass] 28.4 pg Normal 27.0-33.0 [facility] Comment on above: Order Comment: No: D o not add to previous draw Performed By: #### 2 5508, 63513, 98082, 72376, 40897, 47055 #### [facility] [address] [place] [address], [place] MCHC (RBC) [Mass/Vol] 32.6 g/dL Normal 32.0-35.0 [facility] Comment on above: Order Comment: No: D o not add to previous draw Performed By: #### 2 5508, 80762, 39589, 18110, 62003, 84931 #### [facility] [address] [place] [id number], [facility] MCV (RBC) [Entitic vol] 87.0 fL Normal 82.0-98.0 [facility] Comment on above: Order Comment: No: D o not add to previous draw Performed By: #### 2 5508, 55288, 49736, 30143, 72900, 60980 #### [facility] [address] [place] [address], [facility] Nucleated RBC/100 WBC (Bld) [Ratio] 0 % Normal 0-0 [facility] Comment on above: Order Comment: No: D o not add to previous draw Performed By: #### 2 5508, 48404, 10253, 27792, 38527, 51572 #### [facility] [address] [place] [address], [facility] PLAT CNT 157 10*3/uL Normal 150-400 [facility] Comment on above: Order Comment: No: D o not add to previous draw Performed By: #### 2 5508, 17762, 90908, 07588, 55160, 03827 #### [facility] [address] [place] [address], [facility] RBC (Bld) [#/Vol] 4.69 10*6/uL Normal 4.20-5.70 [facility] Comment on above: Order Comment: No: D o not add to previous draw Performed By: #### 2 5508, 75601, 18823, 36499, 96069, 26701 #### [facility] [address] [place] [address], [place] WBC (Bld) [#/Vol] 6.19 10*3/uL Normal 4.00-10.60 [facility] Comment on above: Order Comment: No: D o not add to previous draw Performed By: #### 2 5508, 03802, 32246, 21565, 14683, 11932 #### [facility] [address] [place] [address], [facility] MAGNESIUM BLOODon 05-21-2022 Magnesium [Mass/Vol] 1.9 mg/dL Normal 1.9-2.7 [facility] Comment on above: Order Comment: No: D o not add to previous draw Performed By: #### 2 5508, 25031, 78789, 95712, 66709, 25600 #### [facility] [address] APTTon 05-20-2022 aPTT Coag (Bld) [Time] 28.4 s Normal 25.0-35.0 [facility] Comment on above: Order Comment: No: D [...] THIS PURPOSE. Performed By: #### 2 5508, 65618, 79468, 87745, 73065, 46613 #### [facility] [address] [place] [address], [facility] BASIC METABOLIC PANELon Calcium [Mass/Vol] 9.0 mg/dL Normal 8.6-10.3 [facility] Comment on above: Order Comment: No: D o not add to previous draw Performed By: #### 1 0070, 87307, 59970 #### [facility] [address] [place] [address], [facility] Chloride [Moles/Vol] 105 mmol/L Normal 98-107 [facility] Comment on above: Order Comment: No: D o not add to previous draw Performed By: #### 1 0070, 38412, 07464 #### [facility] [address] [place] [address], [facility] CO2 [Moles/Vol] 26 mmol/L Normal 21-31 [facility] Comment on above: Order Comment: No: D o not add to previous draw Performed By: #### 1 0070, 46904, 35465 #### [facility] [address] [place] [address], [facility] Creatinine [Mass/Vol] 1.42 mg/dL High 0.70-1.30 [facility] Comment on above: Order Comment: No: D o not add to previous draw Performed By: #### 1 0070, 48316, 88463 #### [facility] [address] [place] [address], [facility] EGFR 50 ml/min/1.73sq m Abnormal >60 [facility] Comment on above: Order Comment: No: D o not add to previous draw Result Comment: [facility]'s estimated glomerular filtration rate (eGFR) will no [...] of individuals. Performed By: #### 1 0070, 00498, 58018 #### [facility] [address] [place] [address], [facility] Glucose [Mass/Vol] 107 mg/dL High 70-100 [facility] Comment on above: Order Comment: No: D o not add to previous draw Performed By: #### 1 0070, 97060, 52446 #### [facility] [address] [place] [address], [facility] Potassium [Moles/Vol] 3.9 mmol/L Normal 3.5-5.1 [facility] Comment on above: Order Comment: No: D o not add to previous draw Performed By: #### 1 0070, 22471, 78814 #### [facility] [address] [place] [address], [facility] Sodium [Moles/Vol] 139 mmol/L Normal 136-145 [facility] Comment on above: Order Comment: No: D o not add to previous draw Performed By: #### 1 0070, 82639, 81894 #### [facility] [address] [place] [id number], [facility] Urea nitrogen [Mass/Vol] 50 mg/dL High 7-25 [facility] Comment on above: Order Comment: No: D o not add to previous draw Performed By: #### 1 0070, 97976, 05153 #### [facility] [address] [place] [id number], [facility] CBC COMPLETE BLOOD COUNTon 0 05-20-2022 Erythrocyte distribution width (RBC) [Ratio] 14.3 % Normal 11.5-15.0 [facility] Comment on above: Order Comment: No: D o not add to previous draw Performed By: #### 2 5508, 71627, 92260, 64289, 66883, 20295 #### [facility] [address] [place] [address], [facility] Hematocrit (Bld) [Volume fraction] 44.1 % Normal 39.0-50.0 [facility] Comment on above: Order Comment: No: D o not add to previous draw Performed By: #### 2 5508, 71635, 14615, 07256, 39206, 58539 #### [facility] [address] [place] [address], [place] Hemoglobin (Bld) [Mass/Vol] 14.5 g/dL Normal 13.0-17.0 [facility] Comment on above: Order Comment: No: D o not add to previous draw Performed By: #### 2 5508, 60427, 88531, 10353, 03232, 16473 #### [facility] [address] [place] [id number], [facility] IMM PLATELET FRAC 5.4 % Normal 0.8-6.3 [facility] Comment on above: Order Comment: No: D o not add to previous draw Performed By: #### 2 5508, 29272, 14571, 45903, 14895, 31245 #### [facility] [address] [place] [id number], [facility] MCH (RBC) [Entitic mass] 29.1 pg Normal 27.0-33.0 [facility] Comment on above: Order Comment: No: D o not add to previous draw Performed By: #### 2 5508, 94807, 29128, 29209, 11433, 52209 #### [facility] [address] [place] [address], [facility] MCHC (RBC) [Mass/Vol] 32.9 g/dL Normal 32.0-35.0 [facility] Comment on above: Order Comment: No: D o not add to previous draw Performed By: #### 2 5508, 26761, 93783, 15800, 66871, 37206 #### [facility] [address] [place] [id number], [facility] MCV (RBC) [Entitic vol] 88.6 fL Normal 82.0-98.0 [facility] Comment on above: Order Comment: No: D o not add to previous draw Performed By: #### 2 5508, 94240, 10867, 99415, 28633, 10257 #### [facility] [address] [place] [id number], [facility] Nucleated RBC/100 WBC (Bld) [Ratio] 0 % Normal 0-0 [facility] Comment on above: Order Comment: No: D o not add to previous draw Performed By: #### 2 5508, 81531, 43170, 13260, 10490, 39343 #### [facility] [address] [place] [address], [facility] PLAT CNT 138 10*3/uL Low 150-400 [facility] Comment on above: Order Comment: No: D o not add to previous draw Performed By: #### 2 5508, 54226, 19830, 63615, 59039, 66280 #### [facility] [address] [place] [address], [facility] RBC (Bld) [#/Vol] 4.98 10*6/uL Normal 4.20-5.70 [facility] Comment on above: Order Comment: No: D o not add to previous draw Performed By: #### 2 5508, 29354, 77849, 39446, 20178, 42206 #### [facility] [address] [place] [id number], [facility] WBC (Bld) [#/Vol] 5.80 10*3/uL Normal 4.00-10.60 [facility] Comment on above: Order Comment: No: D o not add to previous draw Performed By: #### 2 5508, 86378, 44240, 37134, 88426, 34860 #### [facility] [address] [place] [id number], [facility] MAGNESIUM BLOODon 05-20-2022 Magnesium [Mass/Vol] 2.0 mg/dL Normal 1.9-2.7 [facility] Comment on above: Order Comment: No: D o not add to previous draw Performed By: #### 1 0070, 22365, 69135 #### [facility] [address] [place] [address], [facility] PHOSPHORUS BLOODon Phosphate [Mass/Vol] 3.5 mg/dL Normal 2.5-5.0 [facility] Comment on above: Order Comment: No: D o not add to previous draw Performed By: #### 1 0070, 96958, 52820 #### [facility] [address] [place] [address], [facility] APTTon 05-19-2022 aPTT Coag (Bld) [Time] 30.3 s Normal 25.0-35.0 [facility] Comment on above: Order Comment: No: D [...] THIS PURPOSE. Performed By: #### 2 5508, 41880, 42494, 63316, 45757, 73898 #### [facility] [address] [place] [address], [facility] BASIC METABOLIC PANELon Calcium [Mass/Vol] 8.5 mg/dL Low 8.6-10.3 [facility] Comment on above: Order Comment: No: D o not add to previous draw Performed By: #### 2 5508, 36657, 20963, 99709, 71059, 34095 #### [facility] [address] [place] [address], [facility] Chloride [Moles/Vol] 104 mmol/L Normal 98-107 [facility] Comment on above: Order Comment: No: D o not add to previous draw Performed By: #### 2 5508, 57227, 68068, 76859, 66795, 60864 #### [facility] [address] [place] [id number], [facility] CO2 [Moles/Vol] 24 mmol/L Normal 21-31 [facility] Comment on above: Order Comment: No: D o not add to previous draw Performed By: #### 2 5508, 13431, 30456, 22650, 38908, 40786 #### [facility] [address] [place] [address], [facility] Creatinine [Mass/Vol] 2.02 mg/dL High 0.70-1.30 [facility] Comment on above: Order Comment: No: D o not add to previous draw Performed By: #### 2 5508, 53209, 94499, 00712, 51648, 05563 #### [facility] [address] [place] [address], [facility] EGFR 33 ml/min/1.73sq m Abnormal >60 [facility] Comment on above: Order Comment: No: D o not add to previous draw Result Comment: [facility]'s estimated glomerular filtration rate (eGFR) will no [...] of individuals. Performed By: #### 2 5508, 20801, 39114, 93383, 49106, 96986 #### [facility] [address] [place] [address], [facility] Glucose [Mass/Vol] 121 mg/dL High 70-100 [facility] Comment on above: Order Comment: No: D o not add to previous draw Performed By: #### 2 5508, 53224, 01303, 83249, 59684, 96243 #### [facility] [address] [place] [address], [facility] Potassium [Moles/Vol] 3.1 mmol/L Low 3.5-5.1 [facility] Comment on above: Order Comment: No: D o not add to previous draw Performed By: #### 2 5508, 64791, 93777, 50920, 58881, 91038 #### [facility] [address] [place] [address], [facility] Sodium [Moles/Vol] 137 mmol/L Normal 136-145 [facility] Comment on above: Order Comment: No: D o not add to previous draw Performed By: #### 2 5508, 07190, 03836, 38573, 40040, 57270 #### [facility] [address] [place] [address], [facility] Urea nitrogen [Mass/Vol] 61 mg/dL High 7-25 [facility] Comment on above: Order Comment: No: D o not add to previous draw Performed By: #### 2 5508, 83674, 91301, 14545, 48815, 70524 #### [facility] [address] CBC COMPLETE BLOOD COUNTon 0 05-19-2022 Erythrocyte distribution width (RBC) [Ratio] 14.2 % Normal 11.5-15.0 [facility] Comment on above: Order Comment: No: D o not add to previous draw Performed By: #### 2 5508, 74202, 83790, 79635, 18366, 37545 #### [facility] [address] [place] [address], [facility] Hematocrit (Bld) [Volume fraction] 41.1 % Normal 39.0-50.0 [facility] Comment on above: Order Comment: No: D o not add to previous draw Performed By: #### 2 5508, 09571, 64033, 49261, 97334, 62186 #### [facility] [address] [place] [address], [facility] Hemoglobin (Bld) [Mass/Vol] 13.8 g/dL Normal 13.0-17.0 [facility] Comment on above: Order Comment: No: D o not add to previous draw Performed By: #### 2 5508, 61725, 77391, 45383, 07665, 75122 #### [facility] [address] [place] [address], [facility] IMM PLATELET FRAC 4.8 % Normal 0.8-6.3 [facility] Comment on above: Order Comment: No: D o not add to previous draw Performed By: #### 2 5508, 99730, 64686, 79227, 13969, 69190 #### [facility] [address] [place] [id number], [facility] MCH (RBC) [Entitic mass] 29.0 pg Normal 27.0-33.0 [facility] Comment on above: Order Comment: No: D o not add to previous draw Performed By: #### 2 5508, 57329, 94194, 77668, 87495, 08932 #### [facility] [address] [place] [address], [facility] MCHC (RBC) [Mass/Vol] 33.6 g/dL Normal 32.0-35.0 [facility] Comment on above: Order Comment: No: D o not add to previous draw Performed By: #### 2 5508, 78898, 61583, 86428, 11545, 91052 #### [facility] [address] [place] [address], [facility] MCV (RBC) [Entitic vol] 86.3 fL Normal 82.0-98.0 [facility] Comment on above: Order Comment: No: D o not add to previous draw Performed By: #### 2 5508, 68226, 51877, 90667, 87107, 58059 #### [facility] [address] [place] [address], [facility] Nucleated RBC/100 WBC (Bld) [Ratio] 0 % Normal 0-0 [facility] Comment on above: Order Comment: No: D o not add to previous draw Performed By: #### 2 5508, 41197, 77465, 57753, 09721, 26107 #### [facility] [address] [place] [address], [facility] PLAT CNT 116 10*3/uL Low 150-400 [facility] Comment on above: Order Comment: No: D o not add to previous draw Performed By: #### 2 5508, 24126, 10862, 65753, 33459, 14361 #### [facility] [address] [place] [address], [facility] RBC (Bld) [#/Vol] 4.76 10*6/uL Normal 4.20-5.70 [facility] Comment on above: Order Comment: No: D o not add to previous draw Performed By: #### 2 5508, 30743, 94366, 87333, 04488, 54353 #### [facility] [address] [place] [address], [facility] WBC (Bld) [#/Vol] 5.16 10*3/uL Normal 4.00-10.60 [facility] Comment on above: Order Comment: No: D o not add to previous draw Performed By: #### 2 5508, 68200, 00226, 66339, 15908, 53032 #### [facility] [address] Cardiovascular Lab Reporton 05-19-2022 Cardiovascular Lab Report [facility] MR #: [id number] Department of Physician: Vic Nunes M.D. Division of Service Date: 05/18/2022 Cardiology Birthdate: 1940 Adult Cardiovascular Room #: 4AB [id number] [place] [id number] Cardiovascular Laboratory Report FINAL IMPRESSIONS: 1. 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 2. Two bypass grafts patent; left internal mammary artery graft to the left anterior descending and saphenous vein graft to the obtuse marginal. 3. Robust ifpk-[id number] collaterals. 4. Patent left subclavian artery. RECOMMENDATIONS: [...] internal mammary artery graft, placement of a 6-Chinese MynxGrip closure device. METHODS: After risks, benefits, and alternatives were explained, written informed consent was obtained. The patient was prepped and draped in usual sterile fashion over both groins. Using 1% lidocaine solution, local infiltration anesthesia was achieved. Using a modified Seldinger technique and a micropuncture kit and on the ultrasound guidance access to the right common femoral artery was obtained. A 6-Chinese 11 cm sheath was inserted without difficulty. [...] conclude the procedure. All catheters removed. A 6-Chinese MynxGrip closure device was deployed per protocol achieving optimal hemostasis. Overall, the patient tolerated the procedure well. There were no complications. He was to be transferred to the [facility] area in stable condition. FINDINGS: Hemodynamics. AO [...] Hall M.D. Date Trans: 05/19/2022 05:44 A/radha [id number] cc: Francisca Thompson M.D. [address] [facility] [id number] Normal [facility] MAGNESIUM BLOODon 05-19-2022 Magnesium [Mass/Vol] 2.0 mg/dL Normal 1.9-2.7 [facility] Comment on above: Order Comment: No: D o not add to previous draw Performed By: #### 1 0070, 53778 #### [facility] [address] [place] [address], [facility] APTTon 05-18-2022 aPTT Coag (Bld) [Time] 80.7 s Critically high 25.0-35.0 [facility] Comment on above: Order Comment: No: D o not add to previous draw Result Comment: Resu lt checked and called. Accurately read back by DREA SINGH RN ON 05/18/2022 AT 14:48 Performed By: #### 2 3610, 90651, 95475, 37110, 39067, 72671 #### [facility] [address] [place] [address], [facility] aPTT Coag (Bld) [Time] 135.2 s Critically high 25.0-35.0 [facility] Comment on above: Order Comment: No: D o not add to previous draw Result Comment: Resu lt checked and called. Accurately read back by Pepe Connolly rn at 0447 Performed By: #### 2 5508, 66621, 16838, 32945, 87620, 75168 #### [facility] [address] [place] [address], [facility] CBC COMPLETE BLOOD COUNTon 0 05-18-2022 Erythrocyte distribution width (RBC) [Ratio] 14.1 % Normal 11.5-15.0 [facility] Comment on above: Order Comment: No: D o not add to previous draw Performed By: #### 2 5508, 74789, 36924, 59470, 15633, 20372 #### [facility] [address] [place] [address], [facility] Hematocrit (Bld) [Volume fraction] 43.0 % Normal 39.0-50.0 [facility] Comment on above: Order Comment: No: D o not add to previous draw Performed By: #### 2 5508, 33804, 11130, 01165, 85743, 10573 #### [facility] [address] [place] [address], [place] Hemoglobin (Bld) [Mass/Vol] 14.3 g/dL Normal 13.0-17.0 [facility] Comment on above: Order Comment: No: D o not add to previous draw Performed By: #### 2 5508, 82303, 62346, 82291, 93588, 55174 #### [facility] [address] [place] [address], [place] MCH (RBC) [Entitic mass] 28.8 pg Normal 27.0-33.0 [facility] Comment on above: Order Comment: No: D o not add to previous draw Performed By: #### 2 5508, 29812, 06751, 46362, 83761, 96408 #### [facility] [address] MCHC (RBC) [Mass/Vol] 33.3 g/dL Normal 32.0-35.0 [facility] Comment on above: Order Comment: No: D o not add to previous draw Performed By: #### 2 5508, 82299, 52567, 90181, 43543, 84956 #### [facility] [address] [place] [address], [facility] MCV (RBC) [Entitic vol] 86.5 fL Normal 82.0-98.0 [facility] Comment on above: Order Comment: No: D o not add to previous draw Performed By: #### 2 5508, 36533, 83004, 73175, 48636, 46393 #### [facility] [address] [place] [address], [facility] Nucleated RBC/100 WBC (Bld) [Ratio] 0 % Normal 0-0 [facility] Comment on above: Order Comment: No: D o not add to previous draw Performed By: #### 2 5508, 07795, 97426, 80944, 27746, 33765 #### [facility] [address] [place] [address], [facility] PLAT CNT 105 10*3/uL Low 150-400 [facility] Comment on above: Order Comment: No: D o not add to previous draw Performed By: #### 2 5508, 39042, 41772, 36610, 13837, 56406 #### [facility] [address] [place] [address], [facility] RBC (Bld) [#/Vol] 4.97 10*6/uL Normal 4.20-5.70 [facility] Comment on above: Order Comment: No: D o not add to previous draw Performed By: #### 2 5508, 28889, 10585, 44489, 41316, 99426 #### [facility] [address] [place] [address], [facility] WBC (Bld) [#/Vol] 5.28 10*3/uL Normal 4.00-10.60 [facility] Comment on above: Order Comment: No: D o not add to previous draw Performed By: #### 2 5508, 72839, 79420, 11835, 39799, 71050 #### [facility] [address] POC GLUCOSE LABon 05-18-2022 Glucose [Mass/Vol] 92 mg/dL Normal 70-100 [facility] Comment on above: Performed By: #### 2 5508, 77051, 23703, 86574, 32405, 59645 #### [facility] [address] [place] [address], [facility] Glucose [Mass/Vol] 90 mg/dL Normal 70-100 [facility] Comment on above: Performed By: #### 2 5508, 62456, 11503, 75206, 96490, 51986 #### [facility] [address] [place] [address], [facility] PROTHROMBIN TIMEon INR Coag (PPP) [Relative time] 1.41 {INR} High 0.91-1.16 [facility] Comment on above: Order Comment: No: D [...] CHEST 1995;108:[id number]. Performed By: #### 2 5508, 52687, 62575, 75530, 07739, 08012 #### [facility] [address] PT Coag (PPP) [Time] 17.2 s High 12.3-14.8 [facility] Comment on above: Order Comment: No: D o not add to previous draw Result Comment: ALL RESULTS MUST BE INTERPRETED WITH RESPECT TO BLOOD DRAWING ARTIFACT OR DILUTION ERROR OF ANTICOAGULANT AT THE TIME OF SAMPLING. Performed By: #### 2 5508, 00806, 74108, 82819, 96029, 66043 #### [facility] [address] [facility] UFH HEPARIN ASSAYon 05-18-20 22 UNFRACTIONATED HEPARIN >1.00 Critically high 0.30-0.70 [facility] Comment on above: Result Comment: Resu lt checked and called. Accurately read back by DREA SINGH RN ON 05/18/2022 AT 14:48 Rivaroxaban and Apixaban will interfere with the anti Xa assay used to monitor UFH and LMWH. Performed By: #### 2 5508, 53242, 40247, 29281, 81216, 11169 #### [facility] [address] [place] [address], [facility] UNFRACTIONATED HEPARIN >1.00 Critically high 0.30-0.70 [facility] Comment on above: Result Comment: Resu lt checked and called. Accurately read back by Lydien Besong rn at 0447 Rivaroxaban and Apixaban will interfere with the anti Xa assay used to monitor UFH and LMWH. Performed By: #### 2 5508, 17105, 77000, 61277, 45898, 00113 #### [facility] [address] [place] [address], [facility] *BLOOD CULTUREon 05-17-2022 *BLOOD CULTURE Clinical Report: (D) Specimen: BLOOD CULTURE Collected: 05/17/2022 02:15 Status: Final Last Updated: 05/22/2022 07:50 CULT RES (Final) No Growth Day 5 Normal [facility] Comment on above: Performed By: #### 2 5508, 50163, 46249, 84095, 29436, 21330 #### [facility] [address] [place] [address], [facility] APTTon 05-17-2022 aPTT Coag (Bld) [Time] 147.6 s Critically high 25.0-35.0 [facility] Comment on above: Order Comment: No: D o not add to previous draw Result Comment: Resu lt checked and called. Accurately read back by drea singh rn on 05/17/2022 at 18:38 Performed By: #### 2 5508, 74486, 67812, 46227, 26733, 80516 #### [facility] [address] [place] [address], [facility] aPTT Coag (Bld) [Time] 103.1 s Critically high 25.0-35.0 [facility] Comment on above: Order Comment: No: D o not add to previous draw Result Comment: Resu lt checked and called. Accurately read back by DREA SINGH @ 1000 Performed By: #### 2 5508, 94579, 80183, 45748, 83788, 88080 #### [facility] [address] [place] [address], [place] aPTT Coag (Bld) [Time] 47.9 s High 25.0-35.0 [facility] Comment on above: Order Comment: No: D [...] THIS PURPOSE. Performed By: #### 2 5508, 18832, 71488, 58526, 58240, 74340 #### [facility] [address] BNP (B-TYPE NATRIURETIC PEPT TWIN)on 05-17-2022 Natriuretic peptide B (Bld) [Mass/Vol] 584 pg/mL High 0-100 [facility] Comment on above: Order Comment: No: D o not add to previous draw Result Comment: Give n the appropriate clinical setting a BNP result of >100 pg/mL indicates congestive heart failure. Performed By: #### 2 5508, 19802, 17794, 16196, 70871, 43149 #### [facility] [address] [place] [address], [facility] CBC W/DIFFon 05-17-2022 ABS IMM GRANS 0.0 10*3/uL Normal 0.0-0.2 [facility] Comment on above: Order Comment: No: D o not add to previous draw Performed By: #### 2 5508, 58349, 85114, 34443, 24530, 63206 #### [facility] [address] [place] [address], [facility] ABS NEUTROPHILS 3.6 10*3/uL Normal 1.6-7.6 [facility] Comment on above: Order Comment: No: D o not add to previous draw Performed By: #### 2 5508, 04644, 44790, 69992, 45023, 28648 #### [facility] [address] [place] [address], [facility] Basophils (Bld) [#/Vol] 0.0 10*3/uL Normal 0.0-0.2 [facility] Comment on above: Order Comment: No: D o not add to previous draw Performed By: #### 2 5508, 70083, 67933, 04159, 38221, 95033 #### [facility] [address] [place] [address], [place] Basophils/100 WBC (Bld) 0.6 % Normal 0.0-1.0 [facility] Comment on above: Order Comment: No: D o not add to previous draw Performed By: #### 2 5508, 73342, 54379, 92806, 34991, 01306 #### [facility] [address] [place] [address], [facility] Eosinophils (Bld) [#/Vol] 0.0 10*3/uL Normal 0.0-0.5 [facility] Comment on above: Order Comment: No: D o not add to previous draw Performed By: #### 2 5508, 95916, 05812, 70167, 26478, 77338 #### [facility] [address] [place] [address], [place] Eosinophils/100 WBC (Bld) 0.2 % Normal 0.0-6.0 [facility] Comment on above: Order Comment: No: D o not add to previous draw Performed By: #### 2 5508, 78843, 44251, 21185, 06680, 75623 #### [facility] [address] [place] [address], [place] Erythrocyte distribution width (RBC) [Ratio] 13.9 % Normal 11.5-15.0 [facility] Comment on above: Order Comment: No: D o not add to previous draw Performed By: #### 2 5508, 27076, 46455, 68081, 01500, 25758 #### [facility] [address] [place] [address], [place] Hematocrit (Bld) [Volume fraction] 40.6 % Normal 39.0-50.0 [facility] Comment on above: Order Comment: No: D o not add to previous draw Performed By: #### 2 5508, 27165, 16020, 81138, 28603, 39496 #### [facility] [address] [place] [address], [facility] Hemoglobin (Bld) [Mass/Vol] 13.7 g/dL Normal 13.0-17.0 [facility] Comment on above: Order Comment: No: D o not add to previous draw Performed By: #### 2 5508, 55999, 94817, 58792, 57681, 23763 #### [facility] [address] IMM PLATELET FRAC 6.9 % High 0.8-6.3 [facility] Comment on above: Order Comment: No: D o not add to previous draw Performed By: #### 2 5508, 16115, 96617, 57537, 72413, 29913 #### [facility] [address] [place] [address], [facility] IMMATURE GRANS 0.8 % Normal 0.0-1.0 [facility] Comment on above: Order Comment: No: D o not add to previous draw Performed By: #### 2 5508, 94557, 02892, 11491, 49445, 79981 #### [facility] [address] [place] [address], [facility] Lymphocytes (Bld) [#/Vol] 0.8 10*3/uL Low 1.2-4.0 [facility] Comment on above: Order Comment: No: D o not add to previous draw Performed By: #### 2 5508, 31298, 68840, 47305, 69368, 51354 #### [facility] [address] [place] [address], [facility] Lymphocytes/100 WBC (Bld) 15.5 % Low 20.0-45.0 [facility] Comment on above: Order Comment: No: D o not add to previous draw Performed By: #### 2 5508, 04783, 04654, 88060, 01732, 32913 #### [facility] [address] [place] [address], [facility] MCH (RBC) [Entitic mass] 29.3 pg Normal 27.0-33.0 [facility] Comment on above: Order Comment: No: D o not add to previous draw Performed By: #### 2 5508, 44175, 75574, 06749, 79012, 55275 #### [facility] [address] [place] [address], [facility] MCHC (RBC) [Mass/Vol] 33.7 g/dL Normal 32.0-35.0 [facility] Comment on above: Order Comment: No: D o not add to previous draw Performed By: #### 2 5508, 41945, 58016, 49241, 41184, 82339 #### [facility] [address] [place] [address], [facility] MCV (RBC) [Entitic vol] 86.9 fL Normal 82.0-98.0 [facility] Comment on above: Order Comment: No: D o not add to previous draw Performed By: #### 2 5508, 02156, 50860, 81216, 65137, 29842 #### [facility] [address] [place] [address], [facility] Monocytes (Bld) [#/Vol] 0.5 10*3/uL Normal 0.1-1.0 [facility] Comment on above: Order Comment: No: D o not add to previous draw Performed By: #### 2 5508, 64280, 80349, 58895, 56967, 64279 #### [facility] [address] [place] [id number], [facility] MONOS 9.7 % Normal 5.0-12.0 [facility] Comment on above: Order Comment: No: D o not add to previous draw Performed By: #### 2 5508, 55973, 95852, 35819, 70360, 54820 #### [facility] [address] [place] [address], [place] Neutrophils/100 WBC (Bld) 73.2 % High 40.0-72.0 [facility] Comment on above: Order Comment: No: D o not add to previous draw Performed By: #### 2 5508, 66341, 20743, 41354, 91093, 67106 #### [facility] [address] [place] [address], [place] Nucleated RBC/100 WBC (Bld) [Ratio] 0 % Normal 0-0 [facility] Comment on above: Order Comment: No: D o not add to previous draw Performed By: #### 2 5508, 26008, 10650, 23625, 83906, 56567 #### [facility] [address] [place] [address], [place] PLAT CNT 81 10*3/uL Low 150-400 [facility] Comment on above: Order Comment: No: D o not add to previous draw Performed By: #### 2 5508, 83647, 01628, 34127, 64621, 32743 #### [facility] [address] [place] [address], [place] RBC (Bld) [#/Vol] 4.67 10*6/uL Normal 4.20-5.70 [facility] Comment on above: Order Comment: No: D o not add to previous draw Performed By: #### 2 5508, 13225, 46408, 19072, 66081, 64547 #### [facility] [address] [place] [address], [place] WBC (Bld) [#/Vol] 4.96 10*3/uL Normal 4.00-10.60 [facility] Comment on above: Order Comment: No: D o not add to previous draw Performed By: #### 2 5508, 81397, 56172, 03327, 21817, 76711 #### [facility] [address] [place] [address], [facility] COMP METABOLIC PANELon 05-17 Albumin [Mass/Vol] 3.0 g/dL Low 3.5-5.7 [facility] Comment on above: Order Comment: No: D o not add to previous draw Performed By: #### 2 5508, 29443, 00296, 68934, 16215, 92892 #### [facility] [address] [place] [address], [facility] ALKALINE PHOSPH 48 IU/L Normal 34-104 [facility] Comment on above: Order Comment: No: D o not add to previous draw Performed By: #### 2 5508, 80067, 41983, 46554, 88852, 74124 #### [facility] [address] [place] [address], [place] ALT [Catalytic activity/Vol] 11 U/L Normal 7-52 [facility] Comment on above: Order Comment: No: D o not add to previous draw Performed By: #### 2 5508, 00668, 04737, 34735, 18218, 02222 #### [facility] [address] [place] [address], [place] AST [Catalytic activity/Vol] 19 U/L Normal 13-39 [facility] Comment on above: Order Comment: No: D o not add to previous draw Performed By: #### 2 5508, 93215, 16980, 96917, 55587, 23682 #### [facility] [address] [place] [address], [place] Bilirubin [Mass/Vol] 0.7 mg/dL Normal 0.3-1.0 [facility] Comment on above: Order Comment: No: D o not add to previous draw Performed By: #### 2 5508, 31955, 98771, 78499, 21205, 25989 #### [facility] [address] [place] [address], [place] Calcium [Mass/Vol] 8.5 mg/dL Low 8.6-10.3 [facility] Comment on above: Order Comment: No: D o not add to previous draw Performed By: #### 2 5508, 54803, 56268, 99592, 60133, 37015 #### [facility] [address] [place] [address], [place] Chloride [Moles/Vol] 104 mmol/L Normal 98-107 [facility] Comment on above: Order Comment: No: D o not add to previous draw Performed By: #### 2 5508, 85649, 66028, 40721, 46019, 10234 #### [facility] [address] [place] [address], [place] CO2 [Moles/Vol] 19 mmol/L Low 21-31 [facility] Comment on above: Order Comment: No: D o not add to previous draw Performed By: #### 2 5508, 14700, 67242, 41323, 17722, 86946 #### [facility] [address] [place] [address], [place] Creatinine [Mass/Vol] 1.71 mg/dL High 0.70-1.30 [facility] Comment on above: Order Comment: No: D o not add to previous draw Performed By: #### 2 5508, 94777, 07128, 58604, 88042, 42666 #### [facility] [address] [place] [address], [place] EGFR 40 ml/min/1.73sq m Abnormal >60 [facility] Comment on above: Order Comment: No: D o not add to previous draw Result Comment: [facility]'s estimated glomerular filtration rate (eGFR) will no [...] of individuals. Performed By: #### 2 5508, 27280, 95287, 07497, 16805, 89418 #### [facility] [address] [place] [address], [place] Glucose [Mass/Vol] 96 mg/dL Normal 70-100 [facility] Comment on above: Order Comment: No: D o not add to previous draw Performed By: #### 2 5508, 68310, 12889, 05100, 17034, 06765 #### [facility] [address] [place] [address], [place] Potassium [Moles/Vol] 3.8 mmol/L Normal 3.5-5.1 [facility] Comment on above: Order Comment: No: D o not add to previous draw Performed By: #### 2 5508, 97245, 25509, 32788, 38905, 69945 #### [facility] [address] [place] [address], [place] Protein [Mass/Vol] 5.7 g/dL Low 6.0-8.3 [facility] Comment on above: Order Comment: No: D o not add to previous draw Performed By: #### 2 5508, 52590, 55993, 05122, 98550, 98504 #### [facility] [address] [place] [address], [place] Sodium [Moles/Vol] 133 mmol/L Low 136-145 [facility] Comment on above: Order Comment: No: D o not add to previous draw Performed By: #### 2 5508, 44010, 89729, 75694, 51375, 84927 #### [facility] [address] [place] [address], [facility] Urea nitrogen [Mass/Vol] 57 mg/dL High 7-25 [facility] Comment on above: Order Comment: No: D o not add to previous draw Performed By: #### 2 5508, 17484, 92351, 31965, 40136, 96171 #### [facility] [address] [place] [address], [facility] CPKon 05-17-2022 CK [Catalytic activity/Vol] 44 U/L Normal 30-223 [facility] Comment on above: Order Comment: No: D o not add to previous draw Performed By: #### 2 5508, 09632, 49049, 25572, 12445, 89559 #### [facility] [address] FREE T4on 05-17-2022 Free T4 [Mass/Vol] 0.78 ng/dL Normal 0.71-1.85 [facility] Comment on above: Performed By: #### 2 5508, 01918, 76827, 34253, 87665, 14847 #### [facility] [address] [place] [address], [facility] HEMOGLOBIN A1Con 05-17-2022 Glucose [Moles/Vol] 117 mmol/L Normal [facility] Comment on above: Order Comment: No: D o not add to previous draw Performed By: #### 2 5508, 75346, 19820, 40329, 59012, 09594 #### [facility] [address] [place] [address], [facility] HbA1c (Bld) [Mass fraction] 5.7 % Normal 4.0-6.0 [facility] Comment on above: Order Comment: No: D o not add to previous draw Performed By: #### 2 5508, 65778, 93755, 15864, 85251, 65738 #### [facility] [address] [place] [address], [facility] LACTATE BLOODon 05-17-2022 Lactate [Moles/Vol] 1.0 mmol/L Normal .5-2.2 [facility] Comment on above: Order Comment: No: D o not add to previous draw Performed By: #### 2 5508, 95749, 35082, 01976, 32069, 66425 #### [facility] [address] [place] [address], [facility] LIPID PROFILEon 05-17-2022 Cholesterol [Mass/Vol] 141 mg/dL Normal 120-200 [facility] Comment on above: Order Comment: No: D o not add to previous draw Result Comment: CHOL ESTEROL REFERENCE RANGE: 20 YEARS AND OLDER CARDIOVASCULAR RISK Less than 200 mg/dl Low Risk 200 to 239 mg/dl Borderline Risk 240 mg/dl and greater High Risk Performed By: #### 2 5508, 08961, 14702, 11644, 83680, 05510 #### [facility] [address] [place] [address], [facility] Cholesterol in HDL [Mass/Vol] 22 mg/dL Low 23-92 [facility] Comment on above: Order Comment: No: D o not add to previous draw Result Comment: Slig ht variation in normal range could be due to gender and/or age. HDL CHOLESTEROL REFERENCE RANGE: 20 years and older Cardiovascular Risk > or =60 mg/dL Desirable 40 TO 59 mg/dL Low Risk <40 mg/dL High Risk Performed By: #### 2 5508, 00850, 08260, 37456, 03748, 68778 #### [facility] [address] [place] [address], [facility] Cholesterol in LDL [Mass/Vol] 95 mg/dL Normal 0-130 [facility] Comment on above: Order Comment: No: D o not add to previous draw Result Comment: LDL IS A CALCULATION LDL IS ONLY VALID IF THE TRIG IS LESS THAN 400. Performed By: #### 2 5508, 33373, 41994, 97818, 38420, 67615 #### [facility] [address] [place] [address], [facility] Cholesterol.total/C holesterol in HDL [Mass ratio] 6.4 {ratio} High .0-4.5 [facility] Comment on above: Order Comment: No: D o not add to previous draw Performed By: #### 2 5508, 92827, 16444, 57800, 76886, 27538 #### [facility] [address] [place] [address], [facility] NON-HDL CHOLESTEROL 119 mg/dL Normal [facility] Comment on above: Order Comment: No: D o not add to previous draw Performed By: #### 2 5508, 61917, 97971, 52934, 48709, 28629 #### [facility] [address] [place] [address], [facility] Triglyceride [Mass/Vol] 122 mg/dL Normal 40-149 [facility] Comment on above: Order Comment: No: D o not add to previous draw Result Comment: TRIG LYCERIDE REFERENCE RANGE: 20 YEARS AND OLDER CARDIOVASCULAR RISK LESS THAN 150 mg/dl LOW RISK 150 TO 199 mg/dl BORDERLINE RISK 200 mg/dl AND GREATER HIGH RISK Performed By: #### 2 5508, 28343, 87144, 10875, 53303, 86959 #### [facility] [address] [place] [address], [facility] VLDL CHOL 24 mg/dL Normal 0-40 [facility] Comment on above: Order Comment: No: D o not add to previous draw Performed By: #### 2 5508, 37904, 50468, 91775, 65870, 32374 #### [facility] [address] [place] [id number], [facility] POC GLUCOSE LABon 05-17-2022 Glucose [Mass/Vol] 91 mg/dL Normal 70-100 [facility] Comment on above: Performed By: #### 2 5508, 37422, 97231, 54190, 26378, 72825 #### [address] PORTABLE CHEST 1 VIEWon PORTABLE CHEST 1 VIEW [facility] Department of Radiology [address] [place] [id number] Patient Name: JOSÉ MIGUEL ROTH : 1940 Sex: M Age: Race: White Pt. Location: [id number] Patient Status: I Ordered Date: 05/17/2022 2:00:00 [...] report. Electronically signed: Obdulio Coughlin. Transcribed by: [email or web address], User Resident: LYNNETTE NORTH Electronically Signed by: OBDULIO COUGHLIN @ 05/17/2022 03:59 AM I personally read this/these film(s) with this resident Normal [facility] Comment on above: Order Comment: No: D o not add to previous draw PROTHROMBIN TIMEon 2 INR Coag (PPP) [Relative time] 2.07 {INR} High 0.91-1.16 [facility] Comment on above: Order Comment: No: D [...] CHEST 1995;[id number]. Performed By: #### 2 5508, 03932, 65600, 59821, 10510, 40280 #### [facility] [address] PT Coag (PPP) [Time] 22.9 s High 12.3-14.8 [facility] Comment on above: Order Comment: No: D o not add to previous draw Result Comment: ALL RESULTS MUST BE INTERPRETED WITH RESPECT TO BLOOD DRAWING ARTIFACT OR DILUTION ERROR OF ANTICOAGULANT AT THE TIME OF SAMPLING. Performed By: #### 2 5508, 70578, 41550, 80429, 87585, 03749 #### [facility] [address] [place] [address], [facility] TROPONIN-Ion 05-17-2022 Troponin I.cardiac [Mass/Vol] 0.25 ng/mL Critically high 0.00-0.04 [facility] Comment on above: Order Comment: No: D o not add to previous draw Result Comment: M-HI EVIOUS CRITICAL RESULT REFERENCE RANGES: 0.00 - 0.04 ng/ml NORMAL 0.05 - 0.50 ng/ml INDETERMINATE > 0.50 ng/ml CONSISTENT WITH AN M.I. Performed By: #### 2 5508, 52903, 94743, 15939, 77339, 74322 #### [facility] [address] Troponin I.cardiac [Mass/Vol] 0.31 ng/mL Critically high 0.00-0.04 [facility] Comment on above: Order Comment: No: D o not add to previous draw Result Comment: M-TR OPONIN INITIAL CRITICAL HIGH; RESPUN AND RETESTED M-CRITICAL RESULT(S) REVIEWED, CALLED TO AND READ BACK BY ARELIS CLEMENTS AT 0345 REFERENCE RANGES: 0.00 - 0.04 ng/ml NORMAL 0.05 - 0.50 ng/ml INDETERMINATE > 0.50 ng/ml CONSISTENT WITH AN M.I. Performed By: #### 2 5508, 41933, 53679, 20240, 78645, 40613 #### [facility] [address] [place] [address], [facility] TSH3 WITH REFLEX FT4on 05-17 TSH 3RD GENERATION 0.19 uIU/mL Low 0.34-5.60 [facility] Comment on above: Order Comment: No: D o not add to previous draw Performed By: #### 2 5508, 54962, 70834, 91497, 20599, 20236 #### [facility] [address] [place] [address], [facility] UFH HEPARIN ASSAYon 05-17-20 22 UNFRACTIONATED HEPARIN >1.00 Critically high 0.30-0.70 [facility] Comment on above: Result Comment: Resu lt checked and called. Accurately read back by drea singh rn on 05/17/2022 at 18:38 Rivaroxaban and Apixaban will interfere with the anti Xa assay used to monitor UFH and LMWH. Performed By: #### 2 5508, 69015, 82401, 46334, 42619, 88324 #### [facility] [address] [place] [address], [facility] UNFRACTIONATED HEPARIN >1.00 Critically high 0.30-0.70 [facility] Comment on above: Result Comment: Resu lt checked and called. Accurately read back by DREA SINGH @ 1000 Rivaroxaban and Apixaban will interfere with the anti Xa assay used to monitor UFH and LMWH. Performed By: #### 2 5508, 12525, 82926, 31726, 75052, 92569 #### [facility] [address] [place] [address], [facility] UNFRACTIONATED HEPARIN >1.00 Critically high 0.30-0.70 [facility] Comment on above: Result Comment: Resu lt checked and called. Accurately read back by Arelis Clements RN at 0251 PT on Elquis UFH = 2.79 for pharmacy use Rivaroxaban and Apixaban will interfere with the anti Xa assay used to monitor UFH and LMWH. Performed By: #### 2 5508, 73989, 68309, 84187, 10157, 24662 #### [facility] [address] [place] [address], [facility] URINALYSIS REFLEXon 05-17-20 22 Appearance (U) CLEAR Normal CLEAR [facility] Comment on above: Order Comment: No: D o not add to previous draw Performed By: #### 2 5508, 73957, 21868, 10418, 79471, 52517 #### [facility] [address] [place] [address], [place] Bilirubin Ql (U) Negative Normal NEGATIVE [facility] Comment on above: Order Comment: No: D o not add to previous draw Performed By: #### 2 5508, 24968, 14971, 05446, 37477, 01751 #### [facility] [address] [place] [address], [place] Color (U) YELLOW Normal YELLOW [facility] Comment on above: Order Comment: No: D o not add to previous draw Performed By: #### 2 5508, 06214, 27956, 63483, 20513, 50073 #### [facility] [address] [place] [address], [place] EPIS NONE SEEN Normal FEW,OCC,NON E SEEN [facility] Comment on above: Order Comment: No: D o not add to previous draw Performed By: #### 2 5508, 36949, 51481, 28956, 81412, 85993 #### [facility] [address] [place] [address], [place] Glucose Ql (U) Negative Normal NEGATIVE [facility] Comment on above: Order Comment: No: D o not add to previous draw Performed By: #### 2 5508, 31675, 76801, 09813, 16815, 13893 #### [facility] [address] [place] [address], [place] Hemoglobin Ql (U) TRACE Abnormal NEGATIVE [facility] Comment on above: Order Comment: No: D o not add to previous draw Performed By: #### 2 5508, 37536, 99261, 02848, 28898, 27330 #### [facility] [address] [place] [address], [place] KETONE Negative Normal NEGATIVE [facility] Comment on above: Order Comment: No: D o not add to previous draw Performed By: #### 2 5508, 99614, 59424, 51829, 67433, 03077 #### [facility] [address] [place] [address], [facility] LEUK MARQUITA Negative Normal NEGATIVE [facility] Comment on above: Order Comment: No: D o not add to previous draw Performed By: #### 2 5508, 20185, 44522, 26914, 60518, 06202 #### [facility] [address] [place] [address], [facility] MUCUS THREADS OCC Abnormal NONE SEEN [facility] Comment on above: Order Comment: No: D o not add to previous draw Performed By: #### 2 5508, 25001, 92080, 92714, 81537, 65839 #### [facility] [address] [place] [address], [place] Nitrite Ql (U) Negative Normal NEGATIVE [facility] Comment on above: Order Comment: No: D o not add to previous draw Performed By: #### 2 5508, 75704, 50543, 54551, 65914, 95545 #### [facility] [address] [place] [id number], [facility] pH (U) 5.5 [pH] Normal 5.0-8.0 [facility] Comment on above: Order Comment: No: D o not add to previous draw Performed By: #### 2 5508, 04110, 34912, 89997, 87033, 50373 #### [facility] [address] [place] [address], [facility] Protein Ql (U) 30 Abnormal NEGATIVE [facility] Comment on above: Order Comment: No: D o not add to previous draw Performed By: #### 2 5508, 58109, 14618, 09937, 13942, 69783 #### [facility] [address] [place] [address], [facility] RBC 3-5 Abnormal NONE SEEN [facility] Comment on above: Order Comment: No: D o not add to previous draw Performed By: #### 2 5508, 59171, 44460, 95885, 72570, 61780 #### [facility] [address] [facility]. [address] SPEC GRAV 1.015 Normal 1.015-1.020 [facility] Comment on above: Order Comment: No: D o not add to previous draw Performed By: #### 2 5508, 54852, 99890, 39016, 44823, 33615 #### [facility] [address] WBC UA 0-2 Abnormal NONE SEEN [facility] Comment on above: Order Comment: No: D o not add to previous draw Performed By: #### 2 5508, 64977, 48956, 69642, 18232, 75980 #### [facility] [address] [facility]. [address] BNPon 05-16-2022 Natriuretic peptide B (Bld) [Mass/Vol] 77642.0 pg/mL Critically high <=1,800.0 [facility] Comment on above: Performed By: #### B MP, BNP #### [facility] [address] [place] [address] Dr. Silva Burnett CBC AUTO DIFFon 05-16-2022 BASO # 0.0 103/ul Normal 0.0-0.1 [facility] Comment on above: Performed By: #### V ITAD #### [facility] [address] [place] [address] [address] Silva Burnett Basophils/100 WBC (Bld) 0.6 % Normal 0.2-2.0 [facility] Comment on above: Performed By: #### V ITAD #### [facility] [address] [place] [address] Dr. Silva Burnett EO # 0.0 103/ul Normal 0.0-0.7 [facility] Comment on above: Performed By: #### V ITAD #### [facility] [address] [place] [address] [address] Silva Burnett Eosinophils/100 WBC (Bld) 0.1 % Critically low 0.9-7.0 [facility] Comment on above: Performed By: #### V ITAD #### [facility] [address] [place] [address] [address] Silva Burnett Erythrocyte distribution width (RBC) [Ratio] 13.7 % Normal 11.0-15.0 [facility] Comment on above: Performed By: #### V ITAD #### [facility] [address] [place] [address] Dr. Silva Burnett Hematocrit (Bld) [Volume fraction] 45.5 % Normal 42.0-54.0 [facility] Comment on above: Performed By: #### V ITAD #### [facility] [address] [place] [address] Dr. Silva Burnett Hemoglobin (Bld) [Mass/Vol] 14.9 g/dL Normal 14.0-18.0 [facility] Comment on above: Performed By: #### V ITAD #### [facility] [address] [place] [address] Dr. Silva Burnett IG # 0.04 10e3/ul Critically high 0.00-0.03 [facility] Comment on above: Performed By: #### V ITAD #### [facility] [address] [place] [address] Dr. Silva Burnett IG % 0.6 % Critically high 0.0-0.5 [facility] Comment on above: Performed By: #### V ITAD #### [facility] [address] [place] [address] Dr. Silva Burnett LYMPH # 0.8 103/ul Critically low 1.2-3.8 [facility] Comment on above: Performed By: #### V ITAD #### [facility] [address] [place] [address] Dr. Silva Burnett Lymphocytes/100 WBC (Bld) 11.9 % Critically low 20.5-60.0 [facility] Comment on above: Performed By: #### V ITAD #### [facility] [address] [place] [address] Dr. Silva Burnett MANUAL DIFF REQ NO Normal [facility] Comment on above: Performed By: #### V ITAD #### [facility] [address] [place] [address] Dr. Silva Burnett MCH (RBC) [Entitic mass] 29.0 pg Normal 25.9-34.0 [facility] Comment on above: Performed By: #### V ITAD #### [facility] [address] [place] [address] Dr. Silva Burnett MCHC (RBC) [Mass/Vol] 32.7 g/dL Normal 29.9-35.2 [facility] Comment on above: Performed By: #### V ITAD #### [facility] [address] [place] [address] Dr. Silva Burnett MCV (RBC) [Entitic vol] 88.7 fL Normal 80.0-94.0 [facility] Comment on above: Performed By: #### V ITAD #### [facility] [address] [place] [address] Dr. Silva Burnett MONO # 0.4 103/ul Normal 0.3-0.8 [facility] Comment on above: Performed By: #### V ITAD #### [facility] [address] [place] [address] Dr. Silva Burnett Monocytes/100 WBC (Bld) 6.5 % Normal 1.7-12.0 [facility] Comment on above: Performed By: #### V ITAD #### [facility] [address] [place] [address] Dr. Silva Burnett NEUT # 5.4 103/ul Normal 1.4-6.5 [facility] Comment on above: Performed By: #### V ITAD #### [facility] [address] [place] [address] Dr. Silva Burnett Neutrophils/100 WBC (Bld) 80.3 % Critically high 43.0-75.0 [facility] Comment on above: Performed By: #### V ITAD #### [facility] [address] [place], [place] [address] Dr. Silva Burnett Platelet mean volume (Bld) [Entitic vol] 11.5 fL Normal 9.5-13.5 [facility] Comment on above: Performed By: #### V ITAD #### [facility] [address] [place], [place] [address] Dr. Silva Burnett PLT 111 103/ul Critically low 150-450 [facility] Comment on above: Performed By: #### V ITAD #### [facility] [address] [place], [place] [address] Dr. Silva Burnett RBC 5.13 106/ul Normal 4.70-6.10 [facility] Comment on above: Performed By: #### V ITAD #### [facility] [address] [address] [address] Silva Burnett WBC 6.7 103/ul Normal 4.0-11.0 [facility] Comment on above: Performed By: #### V ITAD #### [facility] [address] [place], [place] [address] HEAD WO CONon [...] LINDA JUNIOR Date: 2022-05-16 17:37 Normal [facility] CULTURE URINEon 05-16-2022 CULTURE URINE Culture Observations : NO GROWTH. Normal [facility] Comment on above: Performed By: #### V ITAD #### [facility] [address] [place] [address] Dr. Silva Burnett Covid-19 PCR ([facility])on 04-18 SARS-CoV-2 (COVID-19) RNA BRANT+probe Ql (Unsp spec) Not detected Normal NOT DETECTED [facility] Comment on above: Result Comment: When diagnostic [...] for this test is supported by the [place] of Health and Human Service's declaration that [...] used). Performed By: #### C VDTBH #### [facility] [address] [place] [address] Dr. Silva Burnett ER URINE PROFILEon 2 Bilirubin Ql (U) Negative Normal NEGATIVE [facility] Comment on above: Performed By: #### B MP, BNP #### [facility] [address] [place] [address] Dr. Silva Burnett Clarity (U) CLEAR Normal CLEAR [facility] Comment on above: Performed By: #### B MP, BNP #### [facility] [address] [place] [address] Dr. Silva Burnett Color (U) DK. YELLOW Normal YELLOW [facility] Comment on above: Performed By: #### B MP, BNP #### [facility] [address] [place] [address] Dr. Silva SANDRA A micrscopic examina tion will be performed if indicated. Normal [facility] Comment on above: Performed By: #### B MP, BNP #### [facility] [address] [place] [address] Dr. Silva Burnett Glucose Ql (U) Negative Normal NEGATIVE [facility] Comment on above: Performed By: #### B MP, BNP #### [facility] [address] [place] [address] Dr. Silva Burnett Hemoglobin Ql (U) TRACE-INTACT Abnormal NEGATIVE [facility] Comment on above: Performed By: #### B MP, BNP #### [facility] [address] [place] [address] Dr. Silva Burnett Ketones Ql (U) TRACE Abnormal NEGATIVE [facility] Comment on above: Performed By: #### B MP, BNP #### [facility] [address] [place] [address] Dr. Silva Burnett LEUKOCYTES Negative Normal NEGATIVE [facility] Comment on above: Performed By: #### B MP, BNP #### [facility] [address] [place] [address] Dr. Silva Burnett Nitrite Ql (U) Negative Normal NEGATIVE [facility] Comment on above: Performed By: #### B MP, BNP #### [facility] [address] [place] [address] Dr. Silva Burnett pH (U) 5.5 [pH] Normal 5-9 [facility] Comment on above: Performed By: #### B MP, BNP #### [facility] [address] [place] [address] Dr. Silva Burnett Protein (U) [Mass/Vol] 30 mg/dL Abnormal NEGATIVE/ TRACE [facility] Comment on above: Performed By: #### B MP, BNP #### [facility] [address] [place] [address] Dr. Silva Burnett SPEC GRAVITY 1.025 Normal 1.005-<=1.0 25 [facility] Comment on above: Performed By: #### B MP, BNP #### [facility] [address] [place] [address] Dr. Silva Burnett UR MICRO IND INDICATED Normal [facility] Comment on above: Performed By: #### B MP, BNP #### [facility] [address] [place] [address] Dr. Silva Burnett Urobilinogen Qn (U) 0.2 {Zaina'U}/dL Normal 0.2 - 1. 0 [facility] Comment on above: Performed By: #### B MP, BNP #### [facility] [address] [place] [address] Dr. Silva Burnett PROF 14(COMP METB)on 022 Albumin [Mass/Vol] 2.8 g/dL Critically low 3.4-5.0 [facility] Comment on above: Performed By: #### B MP, BNP #### [facility] [address] [place] [address] Dr. Silva Burnett Albumin/Globulin [Mass ratio] 0.7 {ratio} Normal [facility] Comment on above: Performed By: #### B MP, BNP #### [facility] [address] [place] [address] Dr. Silva Burnett ALP [Catalytic activity/Vol] 69 U/L Normal 46-116 [facility] Comment on above: Performed By: #### B MP, BNP #### [facility] [address] [place] [address] Dr. Silva Burnett ALT [Catalytic activity/Vol] 16 U/L Normal 16-63 [facility] Comment on above: Performed By: #### B MP, BNP #### [facility] [address] [place] [address] Dr. Silva Burnett Anion gap [Moles/Vol] 15.2 mmol/L Normal [facility] Comment on above: Performed By: #### B MP, BNP #### [facility] [address] [place] [address] Dr. Silva Burnett AST [Catalytic activity/Vol] 30 U/L Normal 15-37 [facility] Comment on above: Performed By: #### B MP, BNP #### [facility] [address] [place] [address] Dr. Silva Burnett Bilirubin [Mass/Vol] 0.9 mg/dL Normal 0.2-1.0 [facility] Comment on above: Performed By: #### B MP, BNP #### [facility] [address] [place] [address] Dr. Silva Burnett Calcium [Mass/Vol] 9.0 mg/dL Normal 8.5-10.1 [facility] Comment on above: Performed By: #### B MP, BNP #### [facility] [address] [place] [address] Dr. Silva Burnett Chloride [Moles/Vol] 98 mmol/L Normal 98-107 [facility] Comment on above: Performed By: #### B MP, BNP #### [facility] [address] [place] [address] Dr. Silva Burnett CO2 [Moles/Vol] 22.9 mmol/L Normal 21.0-32.0 [facility] Comment on above: Performed By: #### B MP, BNP #### [facility] [address] [place] [address] Dr. Silva Burnett Creatinine [Mass/Vol] 2.20 mg/dL Critically high 0.70-1.30 [facility] Comment on above: Performed By: #### B MP, BNP #### [facility] [address] [place] [address] Dr. Silva Burnett EGFR-AF JAPANESE 35 mL/min/1.73m2 Critically low >=60 [facility] Comment on above: Performed By: #### B MP, BNP #### [facility] [address] [place] [address] Dr. Silva Burnett EGFR-NON AF JAPANESE 29 mL/min/1.73m2 Critically low >=60 [facility] Comment on above: Performed By: #### B MP, BNP #### [facility] [address] [place] [address] Dr. Silva Burnett Globulin (S) [Mass/Vol] 4.0 g/dL Normal [facility] Comment on above: Performed By: #### B MP, BNP #### [facility] [address] [place] [address] Dr. Silva Burnett Glucose [Mass/Vol] 148 mg/dL Critically high 74-106 T [facility] Comment on above: Performed By: #### B MP, BNP #### [facility] [address] [place] [address] Dr. Silva Burnett Potassium [Moles/Vol] 4.1 mmol/L Normal 3.5-5.1 [facility] Comment on above: Performed By: #### B MP, BNP #### [facility] [address] [place] [address] Dr. Silva Burnett Protein [Mass/Vol] 6.8 g/dL Normal 6.4-8.2 [facility] Comment on above: Performed By: #### B MP, BNP #### [facility] [address] [place] [address] Dr. Silva Burnett Sodium [Moles/Vol] 132 mmol/L Critically low 136-145 Th [facility] Comment on above: Performed By: #### B MP, BNP #### [facility] [address] [place] [address] Dr. Silva Burnett Urea nitrogen [Mass/Vol] 60.0 mg/dL Critically high 7.0-18.0 [facility] Comment on above: Performed By: #### B MP, BNP #### [facility] [address] [place] [address] Dr. Silva Burnett Urea nitrogen/Creatinine [Mass ratio] 27.3 mg/mg Normal [facility] Comment on above: Performed By: #### B MP, BNP #### [facility] [address] [place] [address] Dr. Silva Burnett PROTIMEon 05-16-2022 INR Coag (PPP) [Relative time] 1.43 {INR} Normal [facility] Comment on above: Performed By: #### V ITAD #### [facility] [address] [place] [address] Dr. Silva Burnett INR GUIDELINES SEE BELOW Normal [facility] Comment on above: Result Comment: EDMOND RED INR: 2.0 - 3.0 CONDITIONS NOT LISTED BELOW 2.5 - 3.5 FOR PROSTHETIC HEART VALVE REPLACEMENT 2.5 - 3.5 RECURRENT THROMBOSIS Performed By: #### V ITAD #### [facility] [address] [place] [address] Dr. Silva Burnett PT Coag (PPP) [Time] 15.1 s Critically high 9.0-11.6 [facility] Comment on above: Performed By: #### V ITAD #### [facility] [address] [place] [address] Dr. Silva Burnett PTTon 05-16-2022 aPTT Coag (Bld) [Time] 35.6 s Normal 22.3-36.2 [facility] Comment on above: Performed By: #### V ITAD #### [facility] [address] [place] [address] Dr. Silva Burnett TROPONIN, HIGH SENSITIVITYon 05-16-2022 HSTROP 895.9 pg/mL Critically high 4.0-76.1 [facility] Comment on above: Result Comment: CUT- OFF POINTS HAVE BEEN ESTABLISHED BASED ON THE FOURTH UNIVERSAL DEFINITIONS OF MYOCARDIAL INFARCTION. THE UPPER REFERENCE LIMIT (URL) OF TROPONIN, DEFINED THE 99TH PERCENTILE OF cTnI DISTRIBUTION IN A REFERENCE POPULATION, HAS BEEN CONFIRMED THE DECISION THRESHOLD FOR IN DIAGNOSIS. Performed By: #### B MP, BNP #### [facility] [address] [place] [address] Dr. Silva Burnett HSTROP 1000.5 pg/mL Critically high 4.0-76.[address] [facility] Comment on above: Result Comment: CUT- OFF POINTS HAVE BEEN ESTABLISHED BASED ON THE FOURTH UNIVERSAL DEFINITIONS OF MYOCARDIAL INFARCTION. THE UPPER REFERENCE LIMIT (URL) OF TROPONIN, DEFINED THE 99TH PERCENTILE OF cTnI DISTRIBUTION IN A REFERENCE POPULATION, HAS BEEN CONFIRMED THE DECISION THRESHOLD FOR IN DIAGNOSIS. Performed By: #### B MP, BNP #### [facility] [address] [place] [address] Dr. Silva Burnett URINE MICROSCOPIC ONLYon BACTERIA TRACE Abnormal NONE SEEN [facility] Comment on above: Performed By: #### B MP, BNP #### [facility] [address] [place] [address] Dr. Silva Burnett Bacteria identified Cx Nom (U) INDICATED Normal [facility] Comment on above: Performed By: #### B MP, BNP #### [facility] [address] [place] [address] Dr. Silva Burnett CAST SEEN Abnormal NONE SEEN [facility] Comment on above: Performed By: #### B MP, BNP #### [facility] [address] [place] [address] Dr. Silva Burnett Crystals LM Nom (Urine sed) NONE SEEN Normal NONE SEEN [facility] Comment on above: Performed By: #### B MP, BNP #### [facility] [address] [place] [address] Dr. Silva Burnett Epithelial cells LM Ql (Urine sed) FEW Abnormal NONE SEEN /RARE [facility] Comment on above: Performed By: #### B MP, BNP #### [facility] [address] [place] [address] Dr. Silva Burnett HYALINE CAST FEW Normal [facility] Comment on above: Performed By: #### B MP, BNP #### [facility] [address] [place] [address] Dr. Silva Burnett MUCOUS SMALL Abnormal NONE SEEN [facility] Comment on above: Performed By: #### B MP, BNP #### [facility] [address] [place] [address] Dr. Silva Burnett RBC 0-2 Normal 0-2 [facility] Comment on above: Performed By: #### B MP, BNP #### [facility] [address] [place] [address] Dr. Sivla Burnett WBC 5-10 Abnormal NONE SEEN [facility] Comment on above: Performed By: #### B MP, BNP #### [facility] [address] [place] [address] Dr. Silva Burnett XR CHEST 1 Von [...] AYANA FERNANDEZ Date: 2022-05-16 15:53 Normal [facility] BNPon 05-14-2022 NT PRO BNP >90053.0 Critically high <=1,800.0 The [facility] Comment on above: Performed By: #### B MP, BNP #### [facility] [address] [address] [address] Silva Burnett CBC AUTO DIFFon 05-14-2022 BASO # 0.0 103/ul Normal 0.0-0.1 [facility] Comment on above: Performed By: #### B MP, BNP #### [facility] [address] [address] [address] Silva Burnett Basophils/100 WBC (Bld) 0.3 % Normal 0.2-2.0 [facility] Comment on above: Performed By: #### B MP, BNP #### [facility] [address] [address] [address] Silva Burnett EO # 0.0 103/ul Normal 0.0-0.7 [facility] Comment on above: Performed By: #### B MP, BNP #### [facility] [address] [address] [address] Silva Burnett Eosinophils/100 WBC (Bld) 0.0 % Critically low 0.9-7.0 [facility] Comment on above: Performed By: #### B MP, BNP #### [facility] [address] [address] [address] Silva Burnett Erythrocyte distribution width (RBC) [Ratio] 13.6 % Normal 11.0-15.0 [facility] Comment on above: Performed By: #### B MP, BNP #### [facility] [address] [place] [address] Dr. Silav Burnett Hematocrit (Bld) [Volume fraction] 41.8 % Critically low 42.0-54.0 [facility] Comment on above: Performed By: #### B MP, BNP #### [facility] [address] [place] [address] Dr. Silva Burnett Hemoglobin (Bld) [Mass/Vol] 13.6 g/dL Critically low 14.0-18.0 [facility] Comment on above: Performed By: #### B MP, BNP #### [facility] [address] [place] [address] Dr. Silva Burnett IG # 0.04 10e3/ul Critically high 0.00-0.03 [facility] Comment on above: Performed By: #### B MP, BNP #### [facility] [address] [place] [address] Dr. Silva Burnett IG % 0.5 % Normal 0.0-0.5 [facility] Comment on above: Performed By: #### B MP, BNP #### [facility] [address] [place] [address] Dr. Silva Burnett LYMPH # 0.5 103/ul Critically low 1.2-3.8 [facility] Comment on above: Performed By: #### B MP, BNP #### [facility] [address] [place] [address] Dr. Silva Burnett Lymphocytes/100 WBC (Bld) 7.1 % Critically low 20.5-60.0 [facility] Comment on above: Performed By: #### B MP, BNP #### [facility] [address] [place] [address] Dr. Silva Burnett MANUAL DIFF REQ NO Normal [facility] Comment on above: Performed By: #### B MP, BNP #### [facility] [address] [place] [address] Dr. Silva Burnett MCH (RBC) [Entitic mass] 29.4 pg Normal 25.9-34.0 [facility] Comment on above: Performed By: #### B MP, BNP #### [facility] [address] [place] [address] Dr. Silva Burnett MCHC (RBC) [Mass/Vol] 32.5 g/dL Normal 29.9-35.2 [facility] Comment on above: Performed By: #### B MP, BNP #### [facility] [address] [place] [address] Dr. Silva Burnett MCV (RBC) [Entitic vol] 90.3 fL Normal 80.0-94.0 [facility] Comment on above: Performed By: #### B MP, BNP #### [facility] [address] [place] [address] Dr. Silva Burnett MONO # 0.4 103/ul Normal 0.3-0.8 [facility] Comment on above: Performed By: #### B MP, BNP #### [facility] [address] [place] [address] Dr. Silva Burnett Monocytes/100 WBC (Bld) 5.4 % Normal 1.7-12.0 [facility] Comment on above: Performed By: #### B MP, BNP #### [facility] [address] [place] [address] Dr. Silva Burnett NEUT # 6.6 103/ul Critically high 1.4-6.5 [facility] Comment on above: Performed By: #### B MP, BNP #### [facility] [address] [place] [address] Dr. Silva Burnett Neutrophils/100 WBC (Bld) 86.7 % Critically high 43.0-75.0 [facility] Comment on above: Performed By: #### B MP, BNP #### [facility] [address] [place] [address] Dr. Silva Burnett Platelet mean volume (Bld) [Entitic vol] 10.4 fL Normal 9.5-13.5 [facility] Comment on above: Performed By: #### B MP, BNP #### [facility] [address] [place] [address] Dr. Silva Burnett PLT 110 103/ul Critically low 150-450 [facility] Comment on above: Performed By: #### B MP, BNP #### [facility] [address] [place] [address] Dr. Silva Burnett RBC 4.63 106/ul Critically low 4.70-6.10 [facility] Comment on above: Performed By: #### B MP, BNP #### [facility] [address] [place] [address] Dr. Silva Burnett WBC 7.6 103/ul Normal 4.0-11.0 [facility] Comment on above: Performed By: #### B MP, BNP #### [facility] [address] [place] [address] Dr. Silva Burnett CULTURE URINEon 05-14-2022 CULTURE URINE Culture Observations : NO GROWTH. Normal [facility] Comment on above: Performed By: #### V ITAD #### [facility] [address] [place] [address] Dr. Silva Burnett IRONon 05-14-2022 Iron [Mass/Vol] 18.0 ug/dL Critically low 65.0-175.0 [facility] Comment on above: Performed By: #### I CUBA #### [facility] [address] [place] [address] Dr. Silva Burnett PROF 14(COMP METB)on 022 Albumin [Mass/Vol] 3.4 g/dL Normal 3.4-5.0 [facility] Comment on above: Performed By: #### B MP, BNP #### [facility] [address] [place] [address] Dr. Silva Burnett Albumin/Globulin [Mass ratio] 0.8 {ratio} Normal [facility] Comment on above: Performed By: #### B MP, BNP #### [facility] [address] [place] [address] Dr. Silva Burnett ALP [Catalytic activity/Vol] 77 U/L Normal 46-116 [facility] Comment on above: Performed By: #### B MP, BNP #### [facility] [address] [address] [address] Silva Burnett ALT [Catalytic activity/Vol] 16 U/L Normal 16-63 [facility] Comment on above: Performed By: #### B MP, BNP #### [facility] [address] [address] [address] Silva Burnett Anion gap [Moles/Vol] 13.3 mmol/L Normal [facility] Comment on above: Performed By: #### B MP, BNP #### [facility] [address] [address] [address] Silva Burnett AST [Catalytic activity/Vol] 23 U/L Normal 15-37 [facility] Comment on above: Performed By: #### B MP, BNP #### [facility] [address] [place] [address] Dr. Silva Burnett Bilirubin [Mass/Vol] 0.9 mg/dL Normal 0.2-1.0 [facility] Comment on above: Performed By: #### B MP, BNP #### [facility] [address] [place] [address] Dr. Silva Burnett Calcium [Mass/Vol] 9.3 mg/dL Normal 8.5-10.1 [facility] Comment on above: Performed By: #### B MP, BNP #### [facility] [address] [place] [address] Dr. Silva Burnett Chloride [Moles/Vol] 98 mmol/L Normal 98-107 [facility] Comment on above: Performed By: #### B MP, BNP #### [facility] [address] [place] [address] Dr. Silva Burnett CO2 [Moles/Vol] 26.0 mmol/L Normal 21.0-32.0 [facility] Comment on above: Performed By: #### B MP, BNP #### [facility] [address] [address] [address] Silva Burnett Creatinine [Mass/Vol] 1.84 mg/dL Critically high 0.70-1.30 [facility] Comment on above: Performed By: #### B MP, BNP #### [facility] [address] [address] [address] Silva Burnett EGFR-AF JAPANESE 43 mL/min/1.73m2 Critically low >=60 [facility] Comment on above: Performed By: #### B MP, BNP #### [facility] [address] [address] [address] Silva Burnett EGFR-NON AF JAPANESE 36 mL/min/1.73m2 Critically low >=60 [facility] Comment on above: Performed By: #### B MP, BNP #### [facility] [address] [address] [address] Silva Burnett Globulin (S) [Mass/Vol] 4.1 g/dL Normal [facility] Comment on above: Performed By: #### B MP, BNP #### [facility] [address] [address] [address] Silva Burnett Glucose [Mass/Vol] 132 mg/dL Critically high 74-106 T [facility] Comment on above: Performed By: #### B MP, BNP #### [facility] [address] [address] [address] Silva Burnett Potassium [Moles/Vol] 4.3 mmol/L Normal 3.5-5.1 [facility] Comment on above: Performed By: #### B MP, BNP #### [facility] [address] [address] [address] Silva Burnett Protein [Mass/Vol] 7.5 g/dL Normal 6.4-8.2 [facility] Comment on above: Performed By: #### B MP, BNP #### [facility] [address] [address] [address] Silva Burnett Sodium [Moles/Vol] 133 mmol/L Critically low 136-145 [facility] Comment on above: Performed By: #### B MP, BNP #### [facility] [address] [address] [address] Silva Burnett Urea nitrogen [Mass/Vol] 38.0 mg/dL Critically high 7.0-18.0 [facility] Comment on above: Performed By: #### B MP, BNP #### [facility] [address] [address] [address] Silva Burnett Urea nitrogen/Creatinine [Mass ratio] 20.7 mg/mg Normal [facility] Comment on above: Performed By: #### B MP, BNP #### [facility] [address] [address] [address] Silva Burnett UA RANDOM W/MICROSCOPICon BACTERIA NONE SEEN Normal NONE SEEN [facility] Comment on above: Performed By: #### U AMIC #### [facility] [address] [place] [address] Dr. Silva Burnett Bilirubin Ql (U) Negative Normal NEGATIVE [facility] Comment on above: Performed By: #### U AMIC #### [facility] [address] [place] [address] Dr. Silva Burnett CAST NONE SEEN Normal NONE SEEN [facility] Comment on above: Performed By: #### U AMIC #### [facility] [address] [place] [address] Dr. Silva Burnett Clarity (U) CLEAR Normal CLEAR [facility] Comment on above: Performed By: #### U AMIC #### [facility] [address] [place] [address] Dr. Silva Burnett Color (U) YELLOW Normal YELLOW [facility] Comment on above: Performed By: #### U AMIC #### [facility] [address] [place] [address] Dr. Silva Burnett Crystals LM Nom (Urine sed) NONE SEEN Normal NONE SEEN [facility] Comment on above: Performed By: #### U AMIC #### [facility] [address] [address] [address] Silva Burnett Epithelial cells LM Ql (Urine sed) NONE SEEN Normal NONE SEEN /RARE [facility] Comment on above: Performed By: #### U AMIC #### [facility] [address] [place] [address] Dr. Silva Burnett Glucose Ql (U) Negative Normal NEGATIVE [facility] Comment on above: Performed By: #### U AMIC #### [facility] [address] [address] [address] Silva Burnett Hemoglobin Ql (U) MODERATE Abnormal NEGATIVE [facility] Comment on above: Performed By: #### U AMIC #### [facility] [address] [address] [address] Silva Burnett Ketones Ql (U) Negative Normal NEGATIVE [facility] Comment on above: Performed By: #### U AMIC #### [facility] [address] [address] [address] Silva Burnett LEUKOCYTES Negative Normal NEGATIVE [facility] Comment on above: Performed By: #### U AMIC #### [facility] [address] [address] [address] Silva Burnett MUCOUS NONE SEEN Normal NONE SEEN [facility] Comment on above: Performed By: #### U AMIC #### [facility] [address] [address] [address] Silva Burnett Nitrite Ql (U) Negative Normal NEGATIVE [facility] Comment on above: Performed By: #### U AMIC #### [facility] [address] [address] [address] Silva Burnett pH (U) 6.0 [pH] Normal 5-9 [facility] Comment on above: Performed By: #### U AMIC #### [facility] [address] [address] [address] Silva Burnett RBC 0-2 Normal 0-2 [facility] Comment on above: Performed By: #### U AMIC #### [facility] [address] [address] [address] Silva Burnett SPEC GRAVITY 1.025 Normal 1.005-<=1.0 25 [facility] Comment on above: Performed By: #### U AMIC #### [facility] [address] [address] [address] Silva Burnett UA PROTEIN 30 mg/dl Abnormal NEGATIVE/ TRACE [facility] Comment on above: Performed By: #### U AMIC #### [facility] [address] [address] [address] Silva Burnett Urobilinogen Qn (U) 1.0 {Zaina'U}/dL Normal 0.2 - 1. 0 [facility] Comment on above: Performed By: #### U AMIC #### [facility] [address] [address] [address] Silva Burnett WBC NONE SEEN Normal NONE SEEN [facility] Comment on above: Performed By: #### U AMIC #### [facility] [address] [address] [address] Silva Burnett ICD REMOTE CHECKon 2 AV Delay Adaptive Paced Minimum (ms) 200 ms [facility] AV Delay Adaptive Sensed Minimum (ms) 170 ms [facility] Bj RA Pacing Amplitude (volts) 2 V [facility] Bj RA Pacing Polarity BI [facility] Bj RA Pacing Pulse Width (ms) 0.5 ms [facility] Bj RA Sensing Amplitude (mvolts) 0.25 mV [facility] Bj RA Sensing Polarity BI [facility] Bj RV Pacing Amplitude (volts) 2 V [facility] Bj RV Pacing Polarity BI [facility] Bj RV Pacing Pulse Width (ms) 0.5 ms [facility] Bj RV Sensing Amplitude (mvolts) 0.3 mV [facility] Bj RV Sensing Polarity BI [facility] Detection Configuration (Vent) 2 - Zone [facility] FastVT_Detection Interval 250 ms [facility] FastVT_Therapy Configuration 1 ATP(s) + 8 Shock(s) [facility] ICD FastVT DetectionStatus ENABLED [facility] ICD-AMS EPISODES 170 {beats}/min [facility] ICD-ATP Episodes (Vent) 0 [facility] ICD-ATRIALFIBRILLAT ION 21 [facility] ICD-ATRIALTACHYCARD IA 21 [facility] ICD-ATRIALTACHYCARD IA 6 [facility] ICD-Device Mfg BSX [facility] ICD-Fast Ventricular Tachycardia 6 [facility] ICD-LEADIMPEDANCEAT RIAL 709 ohm [facility] ICD-Percent Pacing (Atrial) 5 % [facility] ICD-Percent Pacing (Vent) 1 % [facility] ICD-Shocks Aborted (Vent) 0 [facility] [id number] D 0 [facility] ICD-SHOCKSABORTED 0 [facility] ICD-SHOCKSDELIVERED VENTRICULAR 0 [facility] ICD-Ventricular Fibrillation 0 [facility] Lead Impedance (RV) 416 ohm [facility] Lead Impedance High Voltage 47 ohm [facility] Lead1 Mfg BSX [facility] Lead2 Mfg BSX [facility] Location RV [facility] Location RA [facility] Lower Rate (bpm) 50 {beats}/min [facility] Max Sensor Rate (bpm) 130 {beats}/min [facility] MDT_PROG_TACHY_ZONE _DETECTIONS_STATUS ENABLED [facility] Model D142 INOGEN [facility] Model 0675 [place] 4-Front [facility] Model 7741 Ingevity MRI [facility] Pacing Mode DDDR [facility] Serial Number [id number] [facility] Serial Number [id number] [facility] Serial Number [id number] [facility] Test Charge Energy 23 J [facility] Test Charge Time 10.1 s [facility] Therapy Status (Vent) Enabled [facility] Thresh RA Capture Amplitude (volts) 0.6 V [facility] Thresh RA Capture Duration (ms) 0.5 ms [facility] Thresh RV Capture Amplitude (VOLTS) 0.4 V [facility] Thresh RV Capture Duration (MS) 0.5 ms [facility] Tracking Rate (bpm) 130 {beats}/min [facility] VF Zone Detection Interval 250 ms [facility] VF Zone Therapy Configuration 1 ATP(s) + 8 Shock(s) [facility] No Panel Informationon 05-08 BLANK _ [facility] ICD-ATRIALTACHYCARD IA 0 [facility] ICD-Fast Ventricular Tachycardia 0 [facility] Implant Date 03/24/2019 [facility] ICD REMOTE CHECKon 2 AV Delay Adaptive Paced Minimum (ms) 200 ms [facility] AV Delay Adaptive Sensed Minimum (ms) 170 ms [facility] Bj RA Pacing Amplitude (volts) 2 V [facility] Bj RA Pacing Polarity BI [facility] Bj RA Pacing Pulse Width (ms) 0.5 ms [facility] Bj RA Sensing Amplitude (mvolts) 0.25 mV [facility] Bj RA Sensing Polarity BI [facility] Bj RV Pacing Amplitude (volts) 2 V [facility] Bj RV Pacing Polarity BI [facility] Bj RV Pacing Pulse Width (ms) 0.5 ms [facility] Bj RV Sensing Amplitude (mvolts) 0.3 mV [facility] Bj RV Sensing Polarity BI [facility] Detection Configuration (Vent) 2 - Zone [facility] FastVT_Detection Interval 250 ms [facility] FastVT_Therapy Configuration 1 ATP(s) + 8 Shock(s) [facility] ICD FastVT DetectionStatus ENABLED [facility] ICD-AMS EPISODES 170 {beats}/min [facility] ICD-ATP Episodes (Vent) 0 [facility] ICD-ATRIALFIBRILLAT ION 19 [facility] ICD-ATRIALTACHYCARD IA 19 [facility] ICD-ATRIALTACHYCARD IA 4 [facility] ICD-Device Mfg BSX [facility] ICD-Fast Ventricular Tachycardia 4 [facility] ICD-LEADIMPEDANCEAT RIAL 734 ohm [facility] ICD-Percent Pacing (Atrial) 6 % [facility] ICD-Percent Pacing (Vent) 1 % [facility] ICD-Shocks Aborted (Vent) 0 [facility] [id number] D 0 [facility] ICD-SHOCKSABORTED 0 [facility] ICD-SHOCKSDELIVERED VENTRICULAR 0 [facility] ICD-Ventricular Fibrillation 0 [facility] Lead Impedance (RV) 427 ohm [facility] Lead Impedance High Voltage 48 ohm [facility] Lead1 Mfg BSX [facility] Lead2 Mfg BSX [facility] Location RV [facility] Location RA [facility] Lower Rate (bpm) 50 {beats}/min [facility] Max Sensor Rate (bpm) 130 {beats}/min [facility] MDT_PROG_TACHY_ZONE _DETECTIONS_STATUS ENABLED [facility] Model D142 INOGEN [facility] Model 0675 [place] 4-Front [facility] Model 7741 Ingevity MRI [facility] Pacing Mode DDDR [facility] Serial Number [id number] [facility] Serial Number [id number] [facility] Serial Number [id number] [facility] Test Charge Energy 23 J [facility] Test Charge Time 10 s [facility] Therapy Status (Vent) Enabled [facility] Thresh RA Capture Amplitude (volts) 0.6 V [facility] Thresh RA Capture Duration (ms) 0.5 ms [facility] Thresh RV Capture Amplitude (VOLTS) 0.4 V [facility] Thresh RV Capture Duration (MS) 0.5 ms [facility] Tracking Rate (bpm) 130 {beats}/min [facility] VF Zone Detection Interval 250 ms [facility] VF Zone Therapy Configuration 1 ATP(s) + 8 Shock(s) [facility] No Panel Informationon 02-06 BLANK _ [facility] ICD-ATRIALTACHYCARD IA 0 [facility] ICD-Fast Ventricular Tachycardia 0 [facility] Implant Date 03/24/2019 [facility] C [place] 12-23-2018 Wound Culture Microbiology PROCEDURE: [...] Locations R1: This test was performed at: [facility], [address] [place] [address], [id number] , [facility] Comment on above: Performed By: #### [id number] #### [facility] [address] [place] [id number] Coding Summary.on 12-23-2018 Coding Summary. CODING DATE: 019 [facility] STATUS: Home (Routine DC) PAYOR: Medicare [...] Tim CphT Date Saved: 12/23/2018 01:25 pm [facility] Vital Signs Date Time Vital Sign Value Performing Clinician Karel newell 04-26-2023 [id number] Body height 182.9 cm Andreas Del Cid MD Work Phone: [facility] 04-26-2023 15:08-0400 Body weight 83.92 kg Andreas Del Cid MD Work Phone: [facility] 04-26-2023 15:08-0400 Diastolic blood pressure 62 mm[Hg] Andreas Del Cid MD Work Phone: [facility] 04-26-2023 15:08-0400 Heart rate 73 /min Andreas Del Cid MD Work Phone: [facility] 04-26-2023 15:08-0400 Respiratory rate 12 /min Andreas Del Cid MD Work Phone: [facility] 04-26-2023 15:08-0400 SaO2% (BldA) [Mass fraction] 98 % Andreas Del Cid MD Work Phone: [facility] 04-26-2023 15:08-0400 Systolic blood pressure 116 mm[Hg] Andreas Del Cid MD Work Phone: [facility] 10-25-2022 15:44-0500 Body height 182.9 cm Andreas Del Cid MD Work Phone: [facility] 10-25-2022 15:44-0500 Body weight 83.92 kg Andreas Del Cid MD Work Phone: [facility] 10-25-2022 15:44-0500 Diastolic blood pressure 66 mm[Hg] Andreas Del Cid MD Work Phone: [facility] 10-25-2022 15:44-0500 Heart rate 74 /min Andreas Del Cid MD Work Phone: [facility] 10-25-2022 15:44-0500 SaO2% (BldA) [Mass fraction] 98 % Andreas Del Cid MD Work Phone: [facility] 10-25-2022 15:44-0500 Systolic blood pressure 116 mm[Hg] Andreas Del Cid MD Work Phone: [facility] 10-02-2022 13:10-0500 Body temperature 96.69 [degF] ARACELI Kim MD Work Phone: [facility] 10-02-2022 13:10-0500 Body weight 86.18 kg ARACELI Kim MD Work Phone: [facility] 10-02-2022 13:10-0500 Diastolic blood pressure 71 mm[Hg] ARACELI Kim MD Work Phone: [facility] 10-02-2022 13:10-0500 Heart rate 66 /min ARACELI Kim MD Work Phone: [facility] 10-02-2022 13:10-0500 Respiratory rate 18 /min ARACELI Kim MD Work Phone: [facility] 10-02-2022 13:10-0500 SaO2% (BldA) [Mass fraction] 98 % ARACELI Kim MD Work Phone: [facility] 10-02-2022 13:10-0500 Systolic blood pressure 113 mm[Hg] AARCELI Kim MD Work Phone: [facility] 09-03-2022 11:35-0500 Body height 182.9 cm John Jefferson MD Work Phone: [facility] 09-03-2022 11:35-0500 Body temperature 97.9 [degF] John Jefferson MD Work Phone: [facility] 09-03-2022 11:35-0500 Body weight 84.01 kg John Jefferson MD Work Phone: [facility] 09-03-2022 11:35-0500 Diastolic blood pressure 78 mm[Hg] John Jefferson MD Work Phone: [facility] 09-03-2022 11:35-0500 Heart rate 82 /min John Jefferson MD Work Phone: [facility] 09-03-2022 11:35-0500 Respiratory rate 18 /min John Jefferson MD Work Phone: [facility] 09-03-2022 11:35-0500 SaO2% (BldA) [Mass fraction] 98 % John Jefferson MD Work Phone: [facility] 09-03-2022 11:35-0500 Systolic blood pressure 133 mm[Hg] John Jefferson MD Work Phone: [facility] 06-06-2022 14:32-0400 Body height 182.9 cm Andreas Del Cid MD Work Phone: [facility] 06-06-2022 14:32-0400 Body weight 76.66 kg Andreas Del Cid MD Work Phone: [facility] 06-06-2022 14:32-0400 Diastolic blood pressure 63 mm[Hg] Andreas Del Cid MD Work Phone: [facility] 06-06-2022 14:32-0400 Heart rate 71 /min Andreas Del Cid MD Work Phone: [facility] 06-06-2022 14:32-0400 SaO2% (BldA) [Mass fraction] 97 % Andreas Del Cid MD Work Phone: [facility] 06-06-2022 14:32-0400 Systolic blood pressure 101 mm[Hg] Andreas Del Cid MD Work Phone: [facility] 12-11-2021 13:58-0400 Body temperature 97.11 [degF] ARACELI Kim MD Work Phone: [facility] 12-11-2021 13:58-0400 Body weight 82.1 kg ARACELI Kim MD Work Phone: [facility] 12-11-2021 13:58-0400 Diastolic blood pressure 78 mm[Hg] ARACELI Kim MD Work Phone: [facility] 12-11-2021 13:58-0400 Heart rate 80 /min ARACELI Kim MD Work Phone: [facility] 12-11-2021 13:58-0400 Respiratory rate 18 /min ARACELI Kim MD Work Phone: [facility] 12-11-2021 13:58-0400 SaO2% (BldA) [Mass fraction] 99 % ARACELI Kim MD Work Phone: [facility] 12-11-2021 13:58-0400 Systolic blood pressure 130 mm[Hg] NA Raymond YOUNG Work Phone: [facility] Encounters Encounter Date Encounter Type Care Provider Facility Start: 09-24-2023 End: 09-24-2023 ambulatory [facility] Facility:[facility] Start: 08-27-2023 Telephone encounter Virgil Pacheco nd, MD Work Phone: Cardiology Comment on above: Appointment (Left a message with the patient regarding the cancellation of 10/22/2023 with . 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, unspecified CKD stage, unspecified whether fdc insulin use (HCC) (Primary Dx); PVD (peripheral vascular disease) (HCC); Atherosclerotic heart disease of [place]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) Start: 04-26-2023 End: 04-27-2023 ambulatory [facility] Facility:[facility] Start: 04-02-2023 End: 04-02-2023 [facility] Facility:[facility] Start: 03-26-2023 End: 03-26-2023 ambulatory [facility] Facility:[facility] Start: 02-21-2023 Follow-up encounter Rubén Carney ba, MD Work Phone: [facility] Start: 02-21-2023 ICD Remote F/U Rubén Howell Work Phone: [facility] Start: 02-08-2023 End: 02-09-[address] DOCTOR CARRIZALES Facility: Start: 12-03-2022 Orders Only Andreas Del Cid MD Work Phone: Cardiology Start: 11-29-2022 Patient encounter procedure John Jefferson MD Work Phone: V[facility] Surg [facility] Start: 11-29-2022 Telephone encounter John carrillo MD Work Phone: [facility]urg [facility] Comment on above: Surgery Cancelled Start: 11-06-2022 Follow-up encounter Rubén Carney ba, MD Work Phone: [facility] Start: 11-06-2022 ICD Remote F/U Rubén Howell Work Phone: [facility] Start: 10-31-2022 Telephone encounter John carrillo MD Work Phone: Vascular Surg Dept Comment on above: Appointment Start: 10-25-2022 End: 10-26-2022 ambulatory [facility] Facility:[facility] Start: 10-25-2022 End: 10-25-2022 Patient encounter procedure Andreas Del Cid MD Work Phone: Cardiology Comment on above: 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[place] coronary artery of [place] heart without angina pectoris (Primary Dx); Heart failure, acute systolic (HCC) Start: 10-25-2022 End: 10-25-2022 ambulatory ANDREAS DEL CID Facility:[facility] Start: 10-25-2022 End: 10-25-2022 Subsequent hospital visit by physician [facility] Comment on above: Chronic systolic hea rt failure (HCC) [I50.22] Start: 10-02-2022 End: 10-02-2022 ambulatory [facility] Facility:[facility] Start: 10-02-2022 End: 10-02-2022 Patient encounter procedure Yung Kim MD Work Phone: Radiation Oncology Comment on above: Malignant neoplasm o f prostate (HCC) (Primary Dx) Start: 09-18-2022 End: 12-31-2022 [facility] Start: 09-12-2022 End: 09-13-[address] MALAIKA KIM Facility:[facility] Start: 09-07-2022 Telephone encounter Andreas poe MD Work Phone: Cardiology Comment on above: Nm Pet Request Start: 09-06-2022 Orders Only Andreas Del Cid MD Work Phone: Cardiology Comment on above: Chronic systolic hea rt failure (HCC) (Primary Dx); Coronary artery disease involving [place] coronary artery of [place] heart without angina pectoris Start: 09-03-2022 End: 09-03-2022 Patient encounter procedure John Jefferson MD Work Phone: Vascular Surg Dept Comment on above: 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[place] coronary artery of [place] heart without angina pectoris (Primary Dx); Heart failure, acute systolic (HCC); Mixed hyperlipidemia; Stenosis of left carotid artery; Cerebrovascular acci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); Chronic 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); Carotid stenosis, asymptomatic, bilateral Start: 08-30-2022 End: 08-31-2022 [facility] Facility: Start: 08-07-2022 Follow-up encounter Rubén Carney ba, MD Work Phone: [facility] Start: 08-07-2022 ICD Remote F/U Rubén Howell Work Phone: [facility] Start: 08-03-2022 Orders Only John Howell Work Phone: Vascular Surg Dept Comment on above: Bilateral carotid ar annalee stenosis (Primary Dx) Start: 08-01-2022 Telephone encounter Francisca Thompson MD Work Phone: [place] Comment on above: Appointment Start: 07-30-2022 Telephone encounter Francisca Thompson MD Work Phone: NOC Comment on above: Appointment Start: 07-25-2022 Telephone encounter Andreas poe MD Work Phone: Cardiology Comment on above: Received Outside Med ical Records Start: 07-23-2022 End: 07-24-2022 ambulatory [facility] Facility:[facility] Start: 07-23-2022 End: 07-23-2022 ambulatory [facility] Start: 07-18-2022 End: 07-19-[address] FRANCISCA THOMPSON . Facility:[facility] Start: 06-27-2022 End: 06-28-[address] FRANCISCA THOMPSON . Facility:[facility] Start: 06-27-2022 End: 06-28-[address] FRANCISCA THOMPSON . Facility:[facility] Start: 06-18-2022 Encounter for preprocedural laboratory examination [facility] Start: 06-14-2022 End: 06-15-2022 Encounter for preprocedural [...] failure (HCC) Start: 05-28-2022 End: 05-28-2022 ambulatory [facility] Start: 05-17-2022 End: 05-24-2022 Evaluation and management of inpatient SHARON HOOKS Facility:[facility] Start: 05-16-2022 End: 05-17-2022 ambulatory SHARON HOOKS . Facility: Start: 05-14-2022 End: 05-15-[address] FRANCISCA THOMPSON . Facility:[facility] Start: 05-08-2022 Follow-up encounter Rubén Carney ba, MD Work Phone: [facility] Start: 05-08-2022 ICD Remote F/U Rubén Howell Work Phone: [facility] Start: 04-26-2022 End: 04-26-2022 ambulatory Yung Denilson Kim MD Work Phone: Radiation Oncology Comment on above: Malignant neoplasm o f prostate (HCC) (Primary Dx) Start: 04-26-2022 End: 04-26-2022 Telemedicine consultation with patient Yung Denilson Kim MD Work Phone: [facility] Start: 02-06-2022 Follow-up encounter Rubén Carney ba, MD Work Phone: [facility] Start: 02-06-2022 ICD Remote F/U Rubén Howell Work Phone: [facility] Start: 01-15-2022 Orders Only Lilia Baorne RN Dominick tology/Oncology Comment on above: Unspecified [...] encounter status ARACELI phillips MD Work Phone: [facility] Work Phone: Procedures Date Procedure Procedure Detail Performing Clinician Start: 02-21-2023 ICD REMOTE CHECK Rubén Bucio MD Work Phone: Start: 11-06-2022 ICD REMOTE CHECK Rubén Bucio MD Work Phone: Start: 10-25-2022 Myocrd img pet prfuj coke wheeler std rst&strs cncrnt ct Andreas Del Cid MD Work Phone: Start: 10-25-2022 Myocrd img pet prfuj w/metab 2rtracer cncrnt ct Andreas Del Cid MD Work Phone: Start: 10-25-2022 End: 10-25-2022 Gluc bld gluc mntr dev cleared fda spec home use [facility] Start: 09-12-2022 End: 09-12-2022 PSA screening [facility] Comment on above: Performed By: #### B MP, BNP #### [facility] [address] [place] [address] Dr. Silva Burnett Start: 08-07-2022 ICD REMOTE [...] Detail Author Start: 06-13-2030 Urine microalbumin profile [facility] Start: 10-25-2025 DIABETES SCREEN DIABETES SCREEN [facility] Start: 06-06-2025 DIABETES SCREEN DIABETES SCREEN [facility] Start: 04-19-2025 DIABETES SCREEN DIABETES SCREEN [facility] Start: 01-15-2025 DIABETES SCREEN DIABETES SCREEN [facility] Start: 11-09-2024 DIABETES SCREEN DIABETES SCREEN [facility] Start: 05-17-2023 Influenza vaccination [facility] Start: 04-01-2023 End: 06-01-2023 Prostate specific Ag [Mass/volume] in Serum or Plasma PSA/PROSTSPECAG DIAG Lab Routine Malignant neoplasm of prostate (HCC) Expected: 04/01/2023 (Approximate), Expires: 06/01/2023 [facility] Work Phone: Comment on above: Expected: 04/01/2023 (Approximate), Expires: 06/01/2023 Start: 01-15-2023 Hepatitis B surface antibody level LDL CHOLESTEROL [facility] Start: 10-27-2022 End: 12-27-2022 Prostate specific Ag [Mass/volume] in Serum or Plasma PSA/PROSTSPECAG DIAG Lab Routine Malignant neoplasm of prostate (HCC) Expected: 10/27/2022, Expires: 12/27/2022 [facility] Work Phone: Comment on above: Expected: 10/27/2022 , Expires: 12/27/2022 Start: 09-16-2022 ADVANCE DIRECTIVE DISCUSSION ADVANCE DIRECTIVE DISCUSSION [facility] Start: 09-16-2022 DEPRESSION ASSESSMENT DEPRESSION ASS ESSMENT [facility] Start: 07-18-2022 Hemoglobin A1c measurement HbA1C [facility] Start: 07-18-2022 Hemoglobin A1c/Hemoglobin.total in Blood HBA1C [facility] Start: 06-06-2022 End: 08-06-2022 Comprehensive metabolic 2000 panel - Serum or Plasma [facility] Work Phone: Comment on above: Expected: 06/06/2022 , Expires: 08/06/2022 Start: 06-06-2022 End: 08-06-2022 Natriuretic peptide.B prohormone N-Terminal [Mass/volume] in Serum or Plasma [facility] Work Phone: Comment on above: Expected: 06/06/2022 , Expires: 08/06/2022 Start: 05-17-2022 Influenza vaccination C [facility] Start: 01-15-2022 End: 03-17-2022 Hemoglobin A1c/Hemoglobin.total in Blood [facility] Work Phone: Comment on above: Expected: 01/15/2022 , Expires: 03/17/2022 Start: 01-15-2022 End: 03-17-2022 Insulin [Units/volume] in Serum or Plasma [facility] Work Phone: Comment on above: Expected: 01/15/2022 , Expires: 03/17/2022 Start: 01-15-2022 End: 03-17-2022 IRON + TIBC [facility] Work Phone: Comment on above: Expected: 01/15/2022 , Expires: 03/17/2022 Start: 01-15-2022 End: 03-17-2022 LIPID PANEL BASIC [facility] Work Phone: Comment on above: Expected: 01/15/2022 , Expires: 03/17/2022 Start: 01-15-2022 End: 03-17-2022 T3 UPTAKE [facility] Work Phone: Comment on above: Expected: 01/15/2022 , Expires: 03/17/2022 Start: 01-15-2022 End: 03-17-2022 T4 FREE/FREE THYROX [facility] Work Phone: Comment on above: Expected: 01/15/2022 , Expires: 03/17/2022 Start: 01-15-2022 End: 03-17-2022 T4/FTI/T4U [facility] Work Phone: Comment on above: Expected: 01/15/2022 , Expires: 03/17/2022 Start: 01-15-2022 End: 03-17-2022 Thyrotropin [Units/volume] in Serum or Plasma [facility] Work Phone: Comment on above: Expected: 01/15/2022 , Expires: 03/17/2022 Start: 01-07-2022 End: 03-09-2022 Prostate specific Ag [Mass/volume] in Serum or Plasma PSA/PROSTSPECAG DIAG Lab Routine Malignant neoplasm of prostate (HCC) Expected: 01/07/2022, Expires: 03/09/2022 [facility] Work Phone: Comment on above: Expected: 01/07/2022 , Expires: 03/09/2022 Start: 09-16-2021 ADVANCE DIRECTIVE DISCUSSION ADVANCE DIRECTIVE DISCUSSION [facility] Start: 09-16-2021 DEPRESSION ASSESSMENT DEPRESSION ASS ESSMENT [facility] Start: 06-19-2020 Hepatitis B surface antibody level LDL CHOLESTEROL [facility] Start: 2007 PNEUMOVAX AGE 65 AND OVER WITH 5YR LOOKBACK (#1) PNEUMOVAX AGE 65 AND OVER WITH 5YR LOOKBACK (#1) [facility] Start: 2002 RSV Vaccine (1 - 1-d ose 60+ series) RSV Vaccine (1 - 1-dose 60+ series) [facility] Start: 02-20-1992 SHINGRIX VACCINE (1 of 2) ZAYAS GRIX VACCINE (1 of 2) [facility] Start: 1961 SHINGRIX VACCINE (1 of 2) ZAYAS GRIX VACCINE (1 of 2) [facility] Start: 02-20-1960 ANNUAL PCP TEAM [employer] ANCA DISEASE VISIT ANNUAL PCP TEAM CHRONIC DISEASE VISIT [facility] Start: 1954 Adult depression scr eening assessment DEPRESSION SCREENING [facility] Start: 02-20-1952 3 comp foot exam completed DIABETIC FOOT EXAM [facility] Start: 02-20-1952 Diabetic foot examination Diabetic F oot Exam [facility] Start: 02-20-1952 Glaucoma screening Dilated Retinal E xam [facility] Start: 02-20-1952 Hepatitis B screening URINE ALBUMIN:CREATININE RATIO [facility] Start: 02-20-1952 Hepatitis C antibody , confirmatory test DILATED RETINAL EXAM [facility] Start: 02-20-1948 Pneumococcal Vaccine : 65+ (1 - PCV) Pneumococcal Vaccine: 65+ (1 - PCV) [facility] Start: 02-20-1948 PNEUMOCOCCAL: 65+ (1 - PCV) PNEUMOCOCCAL: 65+ (1 - PCV) [facility] Start: 1947 COVID-19 VACCINE (#1) COVID-19 VACCI NE (#1) [facility] Start: 1947 COVID-19 VACCINE (1) COVID-19 VACCIN E (1) [facility] Start: 1942 COVID-19 VACCINE (#1) COVID-19 VACCI NE (#1) [facility] End: 06-06-2023 ECG COMPLETE ECG COMPLETE ECG Routine Chronic systolic heart failure (HCC) 1 Occurrences starting 06/06/2022 until 06/06/2023 [facility] Work Phone: Comment on above: 1 Occurrences starti ng 06/06/2022 until 06/06/2023 End: 06-06-2023 Echocardiography ECHO Cardiology Routine Chronic systolic heart failure (HCC) 1 Occurrences starting 06/06/2022 until 06/06/2023 [facility] Work Phone: Comment on above: 1 Occurrences starti ng 06/06/2022 until 06/06/2023 End: 10-06-2023 NM PET/CT CARDIAC PERF REST/STRESS NM PET/CT CARDIAC PERF REST/STRESS Radiology Routine Chronic systolic heart failure (HCC) Coronary artery disease involving [place] coronary artery of [place] heart without angina pectoris 1 Occurrences starting 09/06/2022 until 10/06/2023 [facility] Work Phone: Comment on above: 1 Occurrences starti ng 09/06/2022 until 10/06/2023 End: 10-06-2023 NM PET/CT CARDIAC VIABILITY NM PET/CT CARDIAC VIABILITY Radiology Routine Chronic systolic heart failure (HCC) Coronary artery disease involving [place] coronary artery of [place] heart without angina pectoris 1 Occurrences starting 09/06/2022 until 10/06/2023 [facility] Work Phone: Comment on above: 1 Occurrences starti ng 09/06/2022 until 10/06/2023 End: 08-03-2023 US CAROTID ARTERIES [facility] US CAROTID ARTERIES [facility] Vascular Lab Routine Bilateral carotid artery stenosis 1 Occurrences starting 08/03/2022 until 08/03/2023 [facility] Work Phone: Comment on above: 1 Occurrences starti ng 08/03/2022 until 08/03/2023 [facility] Immunizations Immunization Date Immunization Notes Care Provider Renetta carcamo 06-13-2020 diphtheria, tetanus toxoids and pertussis vaccine ARACELI Kim MD Work Phone: [facility] Payers Date Payer Category Payer Unknown MMO MMO MEDICARE SUPPLEMENT [id number] 2018-Present [phone] [address] [place] [address] Indemnity [id number] 2018 Unknown MMO MMO MEDICARE SUPPLEMENT [id number] 2018-Present [phone] [address] [place] [address] Indemnity [id number] 2007 Medicare MEDICARE MEDICAR E A AND B [id number] 2007-Present [phone] [address] [address] [place] [address] Medicare [id number] 2007 Medicare MEDICARE MEDICAR E A AND B [id number] 2007-Present [phone] [address] [place] [id number] Medicare [id number] 1959 Medicare [id number] 1959 Self-pay [id number] 1959 Unknown [id number] 1942 Unknown [id number] 1942 Unknown [id number] 1942 Unknown [id number] [id number] 1942 Unknown [id number] [id number] 1942 Unknown [id number] [id number] 1942 Unknown [id number] 2.16.840.1.473124.3.579.2.593 1942 Unknown [id number] 2.16.840.1.878585.3.579.2.593 1942 Unknown [id number] [id number] 1942 Unknown [id number] [id number] 1942 Unknown [id number] [id number] 1942 Unknown [id number] [id number] 1942 Unknown [id number] 2.16.840.1.857821.3.579.2.593 1942 Unknown [id number] [id number] 1942 Unknown [id number] [id number] 1942 Unknown [id number] [id number] 1942 Unknown [id number] [id number] 1942 Unknown [id number] Social History Date Type Detail Facility Start: 04-28-2012 End: 04-26-2023 Tobacco smoking status NHIS Ex-smoker [facility] Work Phone: End: 04-28-1982 History of tobacco use Current smoker [facility] Work Phone: End: 04-28-1982 History of tobacco use Cigarette Smoker [facility] Work Phone: End: 04-28-1982 History of tobacco use Pipe Smoker [facility] Work Phone: Start: 04-28-2012 End: 04-02-2023 Cigarettes smoked current (pack per day) - Reported 1 [facility] Start: 04-28-2012 End: 04-26-2023 Tobacco use and exposure Smokeless tobacco non-user [facility] Work Phone: Start: 12-04-2021 End: 04-26-2023 Alcohol intake Current drinker of alcohol (finding) [facility] Start: 04-15-2020 History SDOH Alcohol Frequency 2 [facility] Start: 04-15-2020 History SDOH Alcohol Std Drinks 1 [facility] Start: 03-13-2019 History SDOH Alcohol Comment occassional [facility] Start: 1940 Sex Assigned At Male [facility] Start: 12-01-2021 End: 06-06-2022 Exposure to SARS-CoV-2 (event) Not sure [facility] Start: 10-25-2022 Alcohol Comment rarely [facility] Start: 04-15-2020 End: 04-02-2023 Alcohol Use Disorder Identification Test - Consumption [AUDIT-C] [facility] How often to you hav e a drink containing alcohol? Monthly or less [facility] How many standard dr inks containing alcohol do you have on a typical day? 1 or 2 [facility] Frequency of Binge Drinking Not on file [facility] Start: 02-22-2019 Gender identity Identifies as male gender (finding) [facility] Start: 02-22-2019 Sexual orientation Heterosexual (fin ding) [facility] NEGATED: Highlighted rowStart: NINF History of tobacco use Passive smoker [facility] [facility] Medical Equipment Procedure Code Equipment Code Equipment Origin al Text Equipment Identifier Dates [place] Cv 6x1in Thk1.65mm Ptfe - [id number] Start: 05-01-2012 Comment on above: Description: used fo r plrdgetts. Patch Cv 8x.8cm Tapr Vsgrd Bov - [id number] Start: 07-01-2012 Comment on above: Description: [...] 10/29/2023 with . documented in this encounter [facility] 08-22-2023 Miscellaneous Notes Call from pharmacy requesting refill. Requested Prescriptions Pending Prescriptions Disp Refills lisinopril (ZESTRIL) 5 mg tablet 90 tablet 3 Sig: Take 1 tablet by mouth once daily. Patient last seen 06-12-23 - Seen Alison Pollard documented in this encounter [facility] 06-12-2023 Note HNO ID: [id number] Author: Alison Weller APRN.CNP Service: ? Author Type: Nurse Practitioner Type: Progress Notes Filed: 06/12/2023 9:01 AM Note Text: Heart, Vascular AND Thoracic [facility] Department of Cardiovascular Medicine VIRTUAL VIDEO VISIT [...] visit. 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 Systolic heart failure ([facility]) Thyroid disorder 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 kidney disease, unspecified CKD stage, unspecified whether fdc insulin use ([facility]) 04/26/2023 Ventricular tachycardia ([facility]) 04/28/2012 PAST SURGICAL HISTORY Procedure Laterality Date [...] Artery Disease Father Heart Attack Father fatal [place] at age 77 Ischemic Heart Disease Brother CABGx6 first at age 72 No Known Problems Maternal Grandmother No Known Problems Maternal Grandfather No Known Problems Paternal Grandmother No Known Problems Paternal Grandfather No Known Problems Daughter No Known Problems Daughter No Known Problems Daughter other (Other) Other paternal cousin at age 50 of [place] Social History Tobacco Use Smoking status: Former [...] (NITROQUICK) 0.4 mg SL tabletas directed.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 [facility] 04-26-2023 Note HNO ID: [id number] Author: Andreas Del Cid MD Service: ? Author Type: Physician Type: Progress Notes Filed: 04/27/2023 12:57 PM Note Text: [facility] V[facility] Jose Martin Silva Department of Cardiovascular Medicine SECTION OF CARDIOVASCULAR IMAGING OUTPATIENT VISIT DATE April 26, 2023 OUTPATIENT VISIT TYPE ESTABLISHED PRIMARY CARE PHYSICIAN: Francisca Thompson [address] [place] [address] REFERRING PHYSICIAN: Francisca Thompson [address] [facility] [address] CHIEF COMPLAINT: Follow up HISTORY OF PRESENT [...] 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 Dyslipidemia GERD (gastroesophageal reflux disease) Heart failure, acute systolic ([facility]) Hypertension Hypothyroid Myocardial infarct, old Occlusion and stenosis of carotid artery without mention of cerebral infarction Prostate cancer ([facility]) 2020 PVD (peripheral vascular disease) ([facility]) 11/17/2012 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 Systolic heart failure ([facility]) Thyroid disorder 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 kidney disease, unspecified CKD stage, 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 ([facility]) 04/26/2023 Ventricular tachycardia ([facility]) 04/28/2012 PAST SURGICAL HISTORY Procedure Laterality Date [...] Artery Disease Father Heart Attack Father fatal [place] at age 77 other (atrial fibrillation) Mother other (CHF) Mother other (Other) Mother at age 96 Ischemic Heart Disease Brother CABGx6 first at age 72 No Known Problems Daughter No Known Problems Daughter No Known Problems Daughter other (Other) Other paternal cousin at age 50 of [place] ALLERGIES: ALLERGIES Allergen Reactions Latex Rash Adhesive [...] of breath, Wheezing, (more content not included)... [facility] 04-26-2023 History of Present illness Narrative Images from the original note were not included. 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 Systolic heart failure ([facility]) Thyroid disorder 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 kidney disease, unspecified CKD stage, unspecified whether fdc insulin use ([facility]) 04/26/2023 Ventricular tachycardia ([facility]) 04/28/2012 PAST SURGICAL HISTORY Procedure Laterality Date [...] Artery Disease Father Heart Attack Father fatal [place] at age 77 other (atrial fibrillation) Mother other (CHF) Mother other (Other) Mother at age 96 Ischemic Heart Disease Brother CABGx6 first at age 72 No Known Problems Daughter No Known Problems Daughter No Known Problems Daughter other (Other) Other paternal cousin at age 50 of [place] ALLERGIES: ALLERGIES Allergen Reactions Latex Rash Adhesive [...] ABNORMAL ECG Confirmed by MD VIET, HEBA ([id number]) on 06/26/2022 4:47:04 PM IMPRESSION AND PLAN: Mr. oRth is a 83 year old male c [...] April 27, 2023 documented in this encounter [facility] 04-02-2023 Note HNO ID: [id number] Author: Yung Kim MD Service: ? Author Type: Physician Type: Progress Notes Filed: 04/05/2023 9:52 AM Note Text: Radiation Oncology - Follow Up Note PATIENT NAME: José Miguel Roth Jr. PATIENT DIAGNOSIS: Trying to get him a note from overview couple days rather do the PET scan for less a significantly Met second prostate adenocarcinoma, initial PSA 8, biopsy Remsen score 3 + 4 = 7 (grade [...] who recently had to be admitted to [facility]dc due to feels safe. PSA HISTORY: PSA [...] Kim MD cc: Francisca Thompson MD [address] [place] [address] [facility] 11-29-2022 Note HNO ID: [id number] Author: John Jefferson MD Service: Vascular Surgery Author Type: Physician Type: Progress Notes Filed: 11/30/2022 9:34 AM Note Text: NAME: JOSÉ MIGUEL [facility] NO: [id number] DATE OF SERVICE: 11/29/2022 DATE OF : 1940 He let us know he has changed his mind about proceeding with his carotid surgery. We will wait to see what he says about moving ahead and when he wants to reschedule. John Jefferson M.D. SPL/089 Audio #: [id number] Date Dictated: 11/29/2022 14:25:32 Date Typed: 11/30/2022 09:05:53 Date Revised: [facility] 11-29-2022 Miscellaneous Notes Mr. Roth decided not to move forward with surgery at this time and would like to cancel. Darlene Rajput Second Butler documented in this encounter [facility] 11-29-2022 History of Present illness Narrative NAME: JOSÉ MIGUEL [facility] NO: [id number] DATE OF SERVICE: 11/29/2022 DATE OF : 1940 He let us know he has changed his mind about proceeding with his carotid surgery. We will wait to see what he says about moving ahead and when he wants to reschedule. John Jefferson M.D. SPL/089 Audio #: [id number] Date Dictated: 11/29/2022 14:25:32 Date Typed: 11/30/2022 09:05:53 Date Revised: documented in this encounter [facility] 10-31-2022 Miscellaneous Notes Called patient José Miguel to clarify surgery date and advise pre scheduled date requested, asked if I could look up his brothers surgery information, advised I could not my apologizes,to also check as he has EKG/Echo scheduled with Cardiac scheduled day after surgery ..Tiffany Clifton documented in this encounter [facility] 10-26-2022 Note HNO ID: [id number] Author: Andreas Del Cid MD Service: ? Author Type: Physician Type: Progress Notes Filed: 11/02/2022 10:08 AM Note Text: [facility] Jose Martin Silva Department of Cardiovascular Medicine SECTION OF CARDIOVASCULAR IMAGING OUTPATIENT VISIT DATE October 26, 2022 OUTPATIENT VISIT TYPE ESTABLISHED PRIMARY CARE PHYSICIAN: Francisca Thompson MD [address] [place] [id number] REFERRING PHYSICIAN: Andreas Del Cid [facility] [id number] CHIEF COMPLAINT: Follow up HISTORY OF PRESENT [...] 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 Dyslipidemia GERD (gastroesophageal reflux disease) Heart failure, acute systolic ([facility]) Hypertension Hypothyroid Myocardial infarct, old Occlusion and stenosis of carotid artery without mention of cerebral infarction Prostate cancer ([facility]) 2020 PVD (peripheral vascular disease) ([facility]) 11/17/2012 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 [facility] 10-26-2022 History of Present illness Narrative Images from the original note were not included. [facility] Jose Martin Silva Department of Cardiovascular Medicine SECTION OF CARDIOVASCULAR IMAGING OUTPATIENT VISIT DATE October 26, 2022 OUTPATIENT VISIT TYPE ESTABLISHED PRIMARY CARE PHYSICIAN: Francisca Thompson MD [address] [place] [address] REFERRING PHYSICIAN: Andreas Del Cid [id number] [facility] [id number] CHIEF COMPLAINT: Follow up HISTORY OF PRESENT [...] 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 Dyslipidemia GERD (gastroesophageal reflux disease) Heart failure, acute systolic ([facility]) Hypertension Hypothyroid Myocardial infarct, old Occlusion and stenosis of carotid artery without mention of cerebral infarction Prostate cancer ([facility]) 2020 PVD (peripheral vascular disease) ([facility]) 11/17/2012 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 Systolic heart failure ([facility]) Thyroid disorder Ventricular tachycardia 04/28/2012 PAST SURGICAL [...] Artery Disease Father Heart Attack Father fatal [place] at age 77 other (atrial fibrillation) Mother other (CHF) Mother other (Other) Mother at age 96 Ischemic Heart Disease Brother CABGx6 first at age 72 No Known Problems Daughter No Known Problems Daughter No Known Problems Daughter other (Other) Other paternal cousin at age 50 of [place] ALLERGIES: ALLERGIES Allergen Reactions Latex Rash Adhesive [...] FOR LVH, MAY BE NORMAL VARIANT ( Mar Lin product ) NONSPECIFIC T WAVE ABNORMALITY ABNORMAL ECG Confirmed by MD VIET, [facility] ([id number]) on 06/26/2022 4:47:04 PM IMPRESSION AND PLAN: [...] November 02, 2022 documented in this encounter [facility] 10-25-2022 Instructions Andreas Del Cid MD - 10/25/2022 4:11 PM EST OK for surgery. Do not take your lisinopril the day before and the day of surgery. Continue your other medications. Check blood work today. Return in 6 months with an echocardiogram. documented in this encounter [facility] 10-25-2022 Note HNO ID: [id number] Author: Luigi Desai, Nuclear Tech Service: Nuclear Medicine Author Type: Cigar Tobacco Rehandler Type: Progress Notes Filed: 10/25/2022 2:20 PM [...] 1416 PATIENT DISCHARGED TO: Ambulatory patient, left NE department area. A Diagnostic radioactive procedure has taken place, with no further precautions necessary other than routine body substance precautions. More information regarding radiation safety can be found using this link: [email or web address] [email or web address] %[email or web address]-%20Diagnostic%20Nuclear%20Me dicine%20Procedures.pdf SIGNATURE: Luigi Desai Mieple PATIENT NAME: José Miguel Roth Jr. DATE: October 25, 2022 TIME: 1:32 PM PAGER/CONTACT #: [facility] 10-25-2022 Note HNO ID: [id number] Author: Josselin Claros RN Service: ? Author [...] ALLERGIES: Reviewed and unchanged MEDICATIONS REVIEWED BY: Signal Intelligence Analyst and Josselin Claros RN PROCEDURE TYPE: NE PET Myocardial Imagin.4 mg of Regadenoson was administered at 1359 over 10 Seconds. Reversal agent used: None. and NM PET Myocardial Action Taken: POCT Blood Glucose 101 mg/dL at 1339 (QC = OK).9.2 mCi FDG-18 IV at 1416. POCT Blood Glucose 98 mg/dL at 1415 (QC = OK). Expiration date: 16JUN2025 Lot#: [id number] IV SITE: Ambulatory: A peripheral IV was started in the Right forearm with a Angio cath: 20 gauge. and A Saline lock was inserted per protocol POST EXAM PIV STATUS: Discontinued PATIENT DISCHARGED TO: Ambulatory patient, left NE department area. A Diagnostic radioactive procedure has taken place, with no further precautions necessary other than routine body substance precautions. More information regarding radiation safety can be found using this link: [email or web address] 0Protection %20-%20Diagnostic%20Nuclear%20Me dicine%20Procedures.pdf SIGNATURE: Josselin Claros RN PATIENT NAME: José Miguel Roth Jr. DATE: October 25, 2022 TIME: 1:46 PM PAGER/CONTACT #: [facility] 10-25-2022 History of Present illness Narrative RADIOLOGY SERVICE PROGRESS NOTE SERVICE DATE: 10/25/2022 SERVICE TIME: 1:46 PM PATIENT IDENTITY VERIFICATION COMPLETED USING TWO (2) STANDARD IDENTIFIERS: Name and Date of confirmed by patient verbally and Name and Date of confirmed by identification band PATIENT GENDER DATA: male ALLERGIES: Reviewed and unchanged MEDICATIONS REVIEWED BY: Signal Intelligence Analyst and Josselin Claros RN PROCEDURE TYPE: NM PET Myocardial Imagin.4 mg of Regadenoson was administered at 1359 over 10 Seconds. Reversal agent used: None. and NM PET Myocardial Action Taken: POCT Blood Glucose 101 mg/dL at 1339 (QC = OK).9.2 mCi FDG-18 IV at 1416. POCT Blood Glucose 98 mg/dL at 1415 (QC = OK). Expiration date: 16JUN2025 Lot#: [id number] IV SITE: Ambulatory: A peripheral IV was started in the Right forearm with a Angio cath: 20 gauge. and A Saline lock was inserted per protocol POST EXAM PIV STATUS: Discontinued PATIENT DISCHARGED TO: Ambulatory patient, left NE department area. A Diagnostic radioactive procedure has [...] 1416 PATIENT DISCHARGED TO: Ambulatory patient, left NE department area. A Diagnostic radioactive procedure has taken place, with no further precautions necessary other than routine body substance precautions. More information regarding radiation safety can be found using this link: [email or web address]%[email or web address] 0Protection%20-%20Diagnostic%20N uclear%20Medicine%20Procedures.p df SIGNATURE: Luigi Desai Mieple PATIENT NAME: José Miguel Roth Jr. DATE: October 25, 2022 TIME: 1:32 PM PAGER/CONTACT #: documented in this encounter [facility] 10-02-2022 Note HNO ID: [id number] Author: Yung Kim MD Service: ? Author Type: Physician Type: Progress Notes Filed: 10/08/2022 1:29 PM Note Text: Radiation Oncology - Follow Up Note PATIENT NAME: José Miguel Roth Jr. PATIENT DIAGNOSIS: Trying to get him a note from overview couple days rather do the PET scan for less a significantly Met second prostate adenocarcinoma, initial PSA 8, biopsy Remsen score 3 + 4 = 7 (grade group 2), clinical stage T1c, N0, M0, stage IIB [T1-T2, N0, M0, PSA <20, GG 2] (AJCC 8th ed.), s/p TRUS Random biopsy, Patient elected observation and was found to have progression, PSA 08/2021 36.2. and repeat biopsy showing Remsen 7 (3+4) adenocarcinoma. Okay RADIATION SUMMARY: DATES [...] Kim MD cc: Francisca Thompson MD [address] [place] [address] [facility] 10-02-2022 Nurse Note AUA 1.5 Kathie Pavon RN documented in this encounter [facility] 10-02-2022 History of Present illness Narrative Radiation Oncology - Follow Up Note PATIENT NAME: José Miguel Roth Jr. PATIENT DIAGNOSIS: Trying to get him a note from overview couple days rather do the PET scan for less a significantly Met second prostate adenocarcinoma, initial PSA 8, biopsy Remsen score 3 + 4 = 7 (grade group 2), clinical stage T1c, N0, M0, stage IIB [T1-T2, N0, M0, PSA <20, GG 2] (AJCC 8th ed.), s/p TRUS Random biopsy, Patient elected observation and was found to have progression, PSA 08/2021 36.2. and repeat biopsy showing Remsen 7 (3+4) adenocarcinoma. Okay RADIATION SUMMARY: DATES [...] Kim MD cc: Francisca Thompson MD [address] [place] [address] documented in this encounter [facility] 09-11-2022 Miscellaneous Notes 09/11 Spoke with patient [...] failure (HCC) [I50.22] Coronary artery disease involving [place] coronary artery of [place] heart without angina pectoris [I25.10] Test Approved by: Aisha Benavides RN If additional orders are required route to ordering physician and to P PET BLOOD BANK LABORATORY TECHNICIAN [facility] with recommendations. If all recommended orders are present route to P PET BLOOD BANK LABORATORY TECHNICIAN [facility] This form is used for MAIN CAMPUS APPOINTMENTS ONLY. Is this request for a Main [place] PET scan appointment? Yes: Geometry Tutor: Darlene LUNA Requesting Person (Andreas Del Cid): [phone] Area Code + Phone/Pager: Who do we [...] day/next day medically urgent scans please call [phone] to expedite LVEF: LV Ejection Fraction (%) Date Value 06/06/2022 20 LVEF Free text: Yes, see above. Additional comments: N/A Send requests to P CARDIAC PET MD [facility] documented in this encounter [facility] 09-03-2022 History of Present illness Narrative Images from the original note were not included. DATE: 07/01/2012 AGE: 72 SURGEON 1: John Jefferson M.D. OPERATION: Right carotid endarterectomy with bovine patch angioplasty. Heart , V[facility] DEPARTMENT OF VASCULAR SURGERY OUTPATIENT VISIT DATE September 03, 2022 OUTPATIENT VISIT TYPE CONSULTATION SERVICE DATE: 09/03/2022 SERVICE TIME: 11:53 AM PRIMARY CARE PHYSICIAN: Francisca Thompson MD, MD REFERRING PROVIDER: Francisca Thompson MD [facility] [id number] Consult requested for an opinion regarding the [...] Of note, he was recently hospitalized in [place] on April for not feeling well. He has been grieving since his has passed in December. 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 without mention of cerebral infarction Prostate cancer ([facility]) 2020 PVD (peripheral vascular disease) ([facility]) 11/17/2012 Thyroid disorder Ventricular tachycardia 04/28/2012 PAST [...] Artery Disease Father Heart Attack Father fatal [place] at age 77 other (atrial fibrillation) Mother other (CHF) Mother other (Other) Mother at age 96 Ischemic Heart Disease Brother CABGx6 first at age 72 No Known Problems Daughter No Known Problems Daughter No Known Problems Daughter other (Other) Other paternal cousin at age 50 of [place] MEDICATIONS: therapeutic multivitamin w/ iron (THERAGRAN-M) 27-0.4 [...] reviewed for today's visit: HUSSEIN Jefferson MD ([id number]) paged with results. Compared to prior study [...] flow noted. Abnormal signal suggests pre-steal. IMPRESSION: [facility] STAFF PHYSICIAN NOTE OF PERSONAL INVOLVEMENT IN [...] TIME: 2:20 PM documented in this encounter [facility] 08-01-2022 Miscellaneous Notes Mr Roth's daughter called and she would like to schedule an appointment with pt advised to do so due to Carotid stenosis seen Dr jefferson in 2011 regarding right side now its the left side having issues Contact Name (If not the pt): Charu, daughter Home and cell number: [phone] Diagnosis: Carotid stenosis Kind Regards Ayana Jauregui documented in this encounter [facility] 07-30-2022 Miscellaneous Notes Reason for call: Mr Roth called,and he would like to schedule an appointment with Contact Name (If not the pt): Charu, daughter Home and cell number: [phone] Diagnosis: Mitral valve insufficiency, unspecified etiology Kind Regards Mary documented in this encounter [facility] 07-26-2022 Note Discussed the condit ion with [...] gave them the phone number of the slackline operator and the office number if she likes to talk to me and happy to discuss that with her. I offered to proceed with doing the procedure for next week however the patient has to come back to me for approval or declining to do the procedure. I answered the questions about the activity after the procedure. [facility] 07-25-2022 Miscellaneous Notes Images have been pushed through into [facility]. Daughter would like you to call her to go over things as this was all completed after he saw you in office. She can be reached at [phone] Her name is Charu documented in this encounter [facility] 07-23-2022 Note Patient here for 2 m [...] artery disease involving coronary bypass graft of [place] heart Chronic systolic heart failure (CMS/HCC) NSVT (nonsustained ventricular tachycardia) Old [place] (myocardial infarction) Mitral valve insufficiency Claudication, intermittent [...] He was recently admitted transferred from the [facility] to [facility] with acute on chronic systolic heart failure [...] August 2021 he was admitted to the [facility] after sustaining a acute ischemic stroke with left upper and lower extremity paralysis that was treated by intravenous tPA with resolution of his symptoms. At that time he was discovered to have severe stenosis of the left internal carotid artery. He was lost to follow-up after that. During his recent stay at [facility] and echocardiogram confirmed very high-grade stenosis of [...] currently undergoing physical rehab at a nearby fdc. Visit of 07/23/2022: At last visit I [...] normal. There is (more content not included)... [facility] 06-06-2022 History of Present illness Narrative Heart and Vascular [facility] Jose Martin Silva Department of Cardiovascular Medicine SECTION OF CARDIOVASCULAR IMAGING OUTPATIENT VISIT DATE June 06, 2022 OUTPATIENT VISIT TYPE ESTABLISHED PRIMARY CARE PHYSICIAN: Francisca Thompson MD [address] [place] [address] CHIEF COMPLAINT: Follow up HISTORY OF PRESENT [...] cancer (HCC) 2020 PVD (peripheral vascular disease) ([facility]) 11/17/2012 Thyroid disorder Ventricular tachycardia ([facility]) 04/28/2012 PAST SURGICAL HISTORY Procedure Laterality Date [...] Artery Disease Father Heart Attack Father fatal [place] at age 77 other (atrial fibrillation) Mother other (CHF) Mother other (Other) Mother at age 96 Ischemic Heart Disease Brother CABGx6 first at age 72 No Known Problems Daughter No Known Problems Daughter No Known Problems Daughter other (Other) Other paternal cousin at age 50 of [place] ALLERGIES: ALLERGIES Allergen Reactions Latex Rash Adhesive [...] any questions regarding this interpretation, please call [phone]. If you are unable to reach us at the number above, please feel free to contact [facility] at [phone]. IMPRESSION: Mr. Roth is a 82 year [...] June 06, 2022 documented in this encounter [facility] 05-28-2022 Note Subjective José Miguel Roth is a 82 y.o. male. Chief Complaint: Coronary Artery Disease, Congestive Heart Failure, NSVT, Claudication, Valve Disorder, Hyperlipidemia, and Hypertension Nursing Note: Patient here for [facility] follow up. He is re-transferring care from [facility]. He underwent cardiac cath on 05/18/[address] Hall. He has a [employer] ICD. 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 Chronic systolic heart failure ([facility]/HCC) NSVT (nonsustained ventricular tachycardia) ([facility]) Old [place] (myocardial infarction) Mitral valve insufficiency Claudication, intermittent ([facility]) Family History Problem Relation Name Age of [...] He was recently admitted transferred from the [facility] to [facility] with acute on chronic systolic heart failure [...] August 2021 he was admitted to the [facility] after sustaining a acute ischemic stroke with left upper and lower extremity paralysis that was treated by intravenous tPA with resolution of his symptoms. At that time he was discovered to have severe stenosis of the left internal carotid artery. He was lost to follow-up after that. During his recent stay at [facility] and echocardiogram confirmed very high-grade stenosis of [...] currently undergoing physical rehab at a nearby fdc. Review of Systems Constitutional: Negative for chills. [...] the morning., Disp: , Rfl: thyroid, pork, ([place] [facility]) 90 m (more content not included)... [facility] 04-26-2022 History of Present illness Narrative AMBULATORY [...] PSA 08/2021 36.2. and repeat biopsy showing Remsen 7 (3+4) adenocarcinoma. RADIATION SUMMARY: DATES OF [...] Assessment: Prostate adenocarcinoma, initial PSA 8, biopsy Remsen score 3 + 4 = 7 (grade group 2), clinical stage T1c, N0, M0, stage IIB [T1-T2, N0, M0, PSA <20, GG 2] (AJCC 8th ed.), s/p TRUS Random biopsy, Patient elected observation and was found to have progression, PSA 08/2021 36.2. and repeat biopsy showing Remsen 7 (3+4) adenocarcinoma. Overall doing well without evidence of recurrence. PSA remains undetectable. Has been off Lupron now, last dose approximately 9 months ago. Recommend continued PSA surveillance. Total Time Spent: 5 minutes Yung Kim MD documented in this encounter [facility] 01-03-2022 History of Present illness Narrative [facility] Radiation Oncology Department RADIATION ONCOLOGY - COMPLETION [...] LINDA 22:25 PM documented in this encounter [facility] 12-18-2021 History of Present illness Narrative [facility] Radiation Oncology Department RADIATION ONCOLOGY - COMPLETION NOTE PATIENT: JOSÉ MIGUEL ROTH: 1940 DATES OF TREATMENT: 10/23/2021 to 12/19/2019 DIAGNOSIS: Prostate adenocarcinoma, initial PSA 8, biopsy Remsen score 3 + 4 = 7 (grade [...] LINDA 21:22 PM documented in this encounter [facility] 12-11-2021 History of Present illness Narrative Radiation [...] Yung Kim MD documented in this encounter [facility] 05-01-2012 History of Past i llness Narrative [...] 56, Troponin T .37 on admission to [facility] Wide-complex tachycardia 04/28/2012 012 Overview: Presented to OSH 04/28/12 in setting acute [place] with wide complex tachycardia SVT versus VT. Given adenosine x2 without effect, diltiazem bolus and infusion with no effect. Spontaneous conversion to NSR. Had short run of wide complex [facility] Pre-op evaluation 04/28/2012 05/01/2012 Overview: Preoperative evaluation for CABG. Not ReDo -Carotids: Ordered -Vein Mapping: Ordered -Bedside PFTs: Ordered -Formal TTE: Ordered -CXR: Completed documented as of this encounter (statuses as of 12/18/2021) [facility]2012 History of Past illness Narrative* Problem Noted [...] 56, Troponin T .37 on admission to [facility] Wide-complex tachycardia 04/28/2012 012 Overview: Presented to OSH 04/28/12 in setting acute [place] with wide complex tachycardia SVT versus VT. [...] of this encounter (statuses as of 12/21/2021) [facility] History of Past illness Narrative* Problem Noted [...] 56, Troponin T .37 on admission to [facility] Wide-complex tachycardia 04/28/2012 012 Overview: Presented to OSH 04/28/12 in setting acute [place] with wide complex tachycardia SVT versus VT. [...] of this encounter (statuses as of 01/15/2022) [facility] History of Past illness Narrative* Problem Noted [...] 56, Troponin T .37 on admission to [facility] Wide-complex tachycardia 04/28/2012 012 Overview: Presented to OSH 04/28/12 in setting acute [place] with wide complex tachycardia SVT versus VT. Given adenosine x2 without effect, diltiazem bolus and infusion with no effect. Spontaneous conversion to NSR. Had short run of wide complex tachycardia upon arrival [facility] Pre-op evaluation 04/28/2012 05/01/2012 Overview: Preoperative evaluation for CABG. Not ReDo -Carotids: Ordered -Vein Mapping: Ordered -Bedside PFTs: Ordered -Formal TTE: Ordered -CXR: Completed documented as of this encounter (statuses as of 01/18/2022) [facility] History of Past illness Narrative* Problem Noted [...] 56, Troponin T .37 on admission to [facility] Wide-complex tachycardia 04/28/2012 012 Overview: Presented to OSH 04/28/12 in setting acute [place] with wide complex tachycardia SVT versus VT. Given adenosine x2 without effect, diltiazem bolus and infusion with no effect. Spontaneous conversion to NSR. Had short run of wide complex tachycardia upon arrival to [facility] Pre-op evaluation 04/28/2012 05/01/2012 Overview: Preoperative evaluation for CABG. Not ReDo -Carotids: Ordered -Vein Mapping: Ordered -Bedside PFTs: Ordered -Formal TTE: Ordered -CXR: Completed documented as of this encounter (statuses as of 02/06/2022) [facility] History of Past illness Narrative* Problem Noted [...] 56, Troponin T .37 on admission to [facility] Wide-complex tachycardia 04/28/2012 012 Overview: Presented to OSH 04/28/12 in setting acute [place] with wide complex tachycardia SVT versus VT. Given adenosine x2 without effect, diltiazem bolus and infusion with no effect. Spontaneous conversion to NSR. Had short run of wide complex tachycardia upon arrival to [facility] from [facility]. Pre-op evaluation 04/28/2012 05/01/2012 Overview: Preoperative evaluation for CABG. Not ReDo -Carotids: Ordered -Vein Mapping: Ordered -Bedside PFTs: Ordered -Formal TTE: Ordered -CXR: Completed documented as of this encounter (statuses as of 04/26/2022) [facility] History of Past illness Narrative* Problem Noted [...] 56, Troponin T .37 on admission to [facility] Wide-complex tachycardia 04/28/2012 012 Overview: Presented to OSH 04/28/12 in setting acute [place] with wide complex tachycardia SVT versus VT. Given adenosine x2 without effect, diltiazem bolus and infusion with no effect. Spontaneous conversion to NSR. Had short run of wide complex tachycardia upon arrival to [facility] Pre-op evaluation 04/28/2012 05/01/2012 Overview: Preoperative evaluation for CABG. Not ReDo -Carotids: Ordered -Vein Mapping: Ordered -Bedside PFTs: Ordered -Formal TTE: Ordered -CXR: Completed documented as of this encounter (statuses as of 05/08/2022) [facility] History of Past illness Narrative* Problem Noted [...] 56, Troponin T .37 on admission to [facility] Wide-complex tachycardia 04/28/2012 012 Overview: Presented to OSH 04/28/12 in setting acute [place] with wide complex tachycardia SVT versus VT. Given adenosine x2 without effect, diltiazem bolus and infusion with no effect. Spontaneous conversion to NSR. Had short run of wide complex tachycardia upon arrival to [facility] from [facility]. Pre-op evaluation 04/28/2012 05/01/2012 Overview: Preoperative evaluation for CABG. Not ReDo -Carotids: Ordered -Vein Mapping: Ordered -Bedside PFTs: Ordered -Formal TTE: Ordered -CXR: Completed documented as of this encounter (statuses as of 06/06/2022) [facility] History of Past illness Narrative* Problem Noted [...] 56, Troponin T .37 on admission to [facility] Wide-complex tachycardia 04/28/2012 012 Overview: Presented to OSH 04/28/12 in setting acute [place] with wide complex tachycardia SVT versus VT. Given adenosine x2 without effect, diltiazem bolus and infusion with no effect. Spontaneous conversion to NSR. Had short run of wide complex tachycardia upon arrival to [facility] Pre-op evaluation 04/28/2012 05/01/2012 Overview: Preoperative evaluation for CABG. Not ReDo -Carotids: Ordered -Vein Mapping: Ordered -Bedside PFTs: Ordered -Formal TTE: Ordered -CXR: Completed documented as of this encounter (statuses as of 06/06/2022) [facility] History of Past illness Narrative* Problem Noted [...] 56, Troponin T .37 on admission to [facility] Wide-complex tachycardia 04/28/2012 012 Overview: Presented to OSH 04/28/12 in setting acute [place] with wide complex tachycardia SVT versus VT. Given adenosine x2 without effect, diltiazem bolus and infusion with no effect. Spontaneous conversion to NSR. Had short run of wide complex tachycardia upon arrival to [facility] from [facility]. Pre-op evaluation 04/28/2012 05/01/2012 Overview: Preoperative evaluation for CABG. Not ReDo -Carotids: Ordered -Vein Mapping: Ordered -Bedside PFTs: Ordered -Formal TTE: Ordered -CXR: Completed documented as of this encounter (statuses as of 07/31/2022) [facility] History of Past illness Narrative* Problem Noted [...] 56, Troponin T .37 on admission to [facility] Wide-complex tachycardia 04/28/2012 012 Overview: Presented to OSH 04/28/12 in setting acute [place] with wide complex tachycardia SVT versus VT. Given adenosine x2 without effect, diltiazem bolus and infusion with no effect. Spontaneous conversion to NSR. Had short run of wide complex tachycardia upon arrival to [facility] from [facility]. Pre-op evaluation 04/28/2012 05/01/2012 Overview: Preoperative evaluation for CABG. Not ReDo -Carotids: Ordered -Vein Mapping: Ordered -Bedside PFTs: Ordered -Formal TTE: Ordered -CXR: Completed documented as of this encounter (statuses as of 08/01/2022) [facility] History of Past illness Narrative* Problem Noted [...] 56, Troponin T .37 on admission to [facility] Wide-complex tachycardia 04/28/2012 012 Overview: Presented to OSH 04/28/12 in setting acute [place] with wide complex tachycardia SVT versus VT. Given adenosine x2 without effect, diltiazem bolus and infusion with no effect. Spontaneous conversion to NSR. Had short run of wide complex tachycardia upon arrival to [facility] from [facility]. Pre-op evaluation 04/28/2012 05/01/2012 Overview: Preoperative evaluation for CABG. Not ReDo -Carotids: Ordered -Vein Mapping: Ordered -Bedside PFTs: Ordered -Formal TTE: Ordered -CXR: Completed documented as of this encounter (statuses as of 08/03/2022) [facility] History of Past illness Narrative* Problem Noted [...] 56, Troponin T .37 on admission to [facility] Wide-complex tachycardia 04/28/2012 012 Overview: Presented to OSH 04/28/12 in setting acute [place] with wide complex tachycardia SVT versus VT. Given adenosine x2 without effect, diltiazem bolus and infusion with no effect. Spontaneous conversion to NSR. Had short run of wide complex tachycardia upon arrival to [facility] from [facility]. Pre-op evaluation 04/28/2012 05/01/2012 Overview: Preoperative evaluation for CABG. Not ReDo -Carotids: Ordered -Vein Mapping: Ordered -Bedside PFTs: Ordered -Formal TTE: Ordered -CXR: Completed documented as of this encounter (statuses as of 08/07/2022) [facility] History of Past illness Narrative* Problem Noted [...] 56, Troponin T .37 on admission to [facility] Wide-complex tachycardia 04/28/2012 012 Overview: Presented to OSH 04/28/12 in setting acute [place] with wide complex tachycardia SVT versus VT. Given adenosine x2 without effect, diltiazem bolus and infusion with no effect. Spontaneous conversion to NSR. Had short run of wide complex tachycardia upon arrival to [facility] from [facility]. Pre-op evaluation 04/28/2012 05/01/2012 Overview: Preoperative evaluation for CABG. Not ReDo -Carotids: Ordered -Vein Mapping: Ordered -Bedside PFTs: Ordered -Formal TTE: Ordered -CXR: Completed documented as of this encounter (statuses as of 08/17/2022) [facility] History of Past illness Narrative* Problem Noted [...] 56, Troponin T .37 on admission to [facility] Wide-complex tachycardia 04/28/2012 012 Overview: Presented to OSH 04/28/12 in setting acute [place] with wide complex tachycardia SVT versus VT. Given adenosine x2 without effect, diltiazem bolus and infusion with no effect. Spontaneous conversion to NSR. Had short run of wide complex tachycardia upon arrival to [facility] from [facility]. Pre-op evaluation 04/28/2012 05/01/2012 Overview: Preoperative evaluation for CABG. Not ReDo -Carotids: Ordered -Vein Mapping: Ordered -Bedside PFTs: Ordered -Formal TTE: Ordered -CXR: Completed documented as of this encounter (statuses as of 09/03/2022) [facility] History of Past illness Narrative* Problem Noted [...] 56, Troponin T .37 on admission to [facility] Wide-complex tachycardia 04/28/2012 012 Overview: Presented to OSH 04/28/12 in setting acute [place] with wide complex tachycardia SVT versus VT. Given adenosine x2 without effect, diltiazem bolus and infusion with no effect. Spontaneous conversion to NSR. Had short run of wide complex tachycardia upon arrival to [facility] from [facility]. Pre-op evaluation 04/28/2012 05/01/2012 Overview: Preoperative evaluation for CABG. Not ReDo -Carotids: Ordered -Vein Mapping: Ordered -Bedside PFTs: Ordered -Formal TTE: Ordered -CXR: Completed documented as of this encounter (statuses as of 09/07/2022) [facility] History of Past illness Narrative* Problem Noted [...] 56, Troponin T .37 on admission to [facility] Wide-complex tachycardia 04/28/2012 012 Overview: Presented to OSH 04/28/12 in setting acute [place] with wide complex tachycardia SVT versus VT. Given adenosine x2 without effect, diltiazem bolus and infusion with no effect. Spontaneous conversion to NSR. Had short run of wide complex tachycardia upon arrival to [facility] from [facility]. Pre-op evaluation 04/28/2012 05/01/2012 Overview: Preoperative evaluation for CABG. Not ReDo -Carotids: Ordered -Vein Mapping: Ordered -Bedside PFTs: Ordered -Formal TTE: Ordered -CXR: Completed documented as of this encounter (statuses as of 10/08/2022) [facility] History of Past illness Narrative* Problem Noted [...] 56, Troponin T .37 on admission to [facility] Wide-complex tachycardia 04/28/2012 012 Overview: Presented to OSH 04/28/12 in setting acute [place] with wide complex tachycardia SVT versus VT. Given adenosine x2 without effect, diltiazem bolus and infusion with no effect. Spontaneous conversion to NSR. Had short run of wide complex tachycardia upon arrival to [facility] from [facility]. Pre-op evaluation 04/28/2012 05/01/2012 Overview: Preoperative evaluation for CABG. Not ReDo -Carotids: Ordered -Vein Mapping: Ordered -Bedside PFTs: Ordered -Formal TTE: Ordered -CXR: Completed documented as of this encounter (statuses as of 10/26/2022) [facility] History of Past illness Narrative* Problem Noted [...] 56, Troponin T .37 on admission to [facility] Wide-complex tachycardia 04/28/2012 012 Overview: Presented to OSH 04/28/12 in setting acute [place] with wide complex tachycardia SVT versus VT. Given adenosine x2 without effect, diltiazem bolus and infusion with no effect. Spontaneous conversion to NSR. Had short run of wide complex tachycardia upon arrival to [facility] from [facility]. Pre-op evaluation 04/28/2012 05/01/2012 Overview: Preoperative evaluation for CABG. Not ReDo -Carotids: Ordered -Vein Mapping: Ordered -Bedside PFTs: Ordered -Formal TTE: Ordered -CXR: Completed documented as of this encounter (statuses as of 10/26/2022) [facility] History of Past illness Narrative* Problem Noted [...] 56, Troponin T .37 on admission to [facility] Wide-complex tachycardia 04/28/2012 012 Overview: Presented to OSH 04/28/12 in setting acute [place] with wide complex tachycardia SVT versus VT. Given adenosine x2 without effect, diltiazem bolus and infusion with no effect. Spontaneous conversion to NSR. Had short run of wide complex tachycardia upon arrival to [facility] from [facility]. Pre-op evaluation 04/28/2012 05/01/2012 Overview: Preoperative evaluation for CABG. Not ReDo -Carotids: Ordered -Vein Mapping: Ordered -Bedside PFTs: Ordered -Formal TTE: Ordered -CXR: Completed documented as of this encounter (statuses as of 10/31/2022) [facility] History of Past illness Narrative* Problem Noted [...] 56, Troponin T .37 on admission to [facility] Wide-complex tachycardia 04/28/2012 012 Overview: Presented to OSH 04/28/12 in setting acute [place] with wide complex tachycardia SVT versus VT. Given adenosine x2 without effect, diltiazem bolus and infusion with no effect. Spontaneous conversion to NSR. Had short run of wide complex tachycardia upon arrival to [facility] from [facility]. Pre-op evaluation 04/28/2012 05/01/2012 Overview: Preoperative evaluation for CABG. Not ReDo -Carotids: Ordered -Vein Mapping: Ordered -Bedside PFTs: Ordered -Formal TTE: Ordered -CXR: Completed documented as of this encounter (statuses as of 11/02/2022) [facility] History of Past illness Narrative* Problem Noted [...] 56, Troponin T .37 on admission to [facility] Wide-complex tachycardia 04/28/2012 012 Overview: Presented to OSH 04/28/12 in setting acute [place] with wide complex tachycardia SVT versus VT. Given adenosine x2 without effect, diltiazem bolus and infusion with no effect. Spontaneous conversion to NSR. Had short run of wide complex tachycardia upon arrival to [facility] from [facility]. Pre-op evaluation 04/28/2012 05/01/2012 Overview: Preoperative evaluation for CABG. Not ReDo -Carotids: Ordered -Vein Mapping: Ordered -Bedside PFTs: Ordered -Formal TTE: Ordered -CXR: Completed documented as of this encounter (statuses as of 11/07/2022) [facility] History of Past illness Narrative* Problem Noted [...] 56, Troponin T .37 on admission to [facility] Wide-complex tachycardia 04/28/2012 012 Overview: Presented to OSH 04/28/12 in setting acute IN with wide complex tachycardia SVT versus VT. Given adenosine x2 without effect, diltiazem bolus and infusion with no effect. Spontaneous conversion to NSR. Had short run of wide complex tachycardia upon arrival to [facility] from [facility]. Pre-op evaluation 04/28/2012 05/01/2012 Overview: Preoperative evaluation for CABG. Not ReDo -Carotids: Ordered -Vein Mapping: Ordered -Bedside PFTs: Ordered -Formal TTE: Ordered -CXR: Completed documented as of this encounter (statuses as of 11/29/2022) [facility] History of Past illness Narrative* Problem Noted [...] 56, Troponin T .37 on admission to [facility] Wide-complex tachycardia 04/28/2012 012 Overview: Presented to OSH 04/28/12 in setting acute [place] with wide complex tachycardia SVT versus VT. Given adenosine x2 without effect, diltiazem bolus and infusion with no effect. Spontaneous conversion to NSR. Had short run of wide complex tachycardia upon arrival to [facility] from [facility]. Pre-op evaluation 04/28/2012 05/01/2012 Overview: Preoperative evaluation for CABG. Not ReDo -Carotids: Ordered -Vein Mapping: Ordered -Bedside PFTs: Ordered -Formal TTE: Ordered -CXR: Completed documented as of this encounter (statuses as of 11/30/2022) [facility] History of Past illness Narrative* Problem Noted [...] 56, Troponin T .37 on admission to [facility] Wide-complex tachycardia 04/28/2012 012 Overview: Presented to OSH 04/28/12 in setting acute [place] with wide complex tachycardia SVT versus VT. Given adenosine x2 without effect, diltiazem bolus and infusion with no effect. Spontaneous conversion to NSR. Had short run of wide complex tachycardia upon arrival to [facility] from [facility]. Pre-op evaluation 04/28/2012 05/01/2012 Overview: Preoperative evaluation for CABG. Not ReDo -Carotids: Ordered -Vein Mapping: Ordered -Bedside PFTs: Ordered -Formal TTE: Ordered -CXR: Completed documented as of this encounter (statuses as of 12/03/2022) [facility] History of Past illness Narrative* Problem Noted [...] 56, Troponin T .37 on admission to [facility] Wide-complex tachycardia 04/28/2012 012 Overview: Presented to OSH 04/28/12 in setting acute IN with wide complex tachycardia SVT versus VT. Given adenosine x2 without effect, diltiazem bolus and infusion with no effect. Spontaneous conversion to NSR. Had short run of wide complex tachycardia upon arrival to [facility] from [facility]. Pre-op evaluation 04/28/2012 05/01/2012 Overview: Preoperative evaluation for CABG. Not ReDo -Carotids: Ordered -Vein Mapping: Ordered -Bedside PFTs: Ordered -Formal TTE: Ordered -CXR: Completed documented as of this encounter (statuses as of 02/21/2023) [facility] History of Past illness Narrative* Problem Noted [...] 56, Troponin T .37 on admission to [facility] Wide-complex tachycardia 04/28/2012 Overview: Presented to OSH 04/28/12 in setting acute [place] with wide complex tachycardia SVT versus VT. Given adenosine x2 without effect, diltiazem bolus and infusion with no effect. Spontaneous conversion to NSR. Had short run of wide complex tachycardia upon [facility] 04/28/2012 05/01/2012 Overview: Preoperative evaluation for CABG. Not ReDo -Carotids: Ordered -Vein Mapping: Ordered -Bedside PFTs: Ordered -Formal TTE: Ordered -CXR: Completed documented as of this encounter (statuses as of 04/27/2023) [facility] History of Past illness Narrative* Problem Noted [...] 56, Troponin T .37 on admission to [facility] Wide-complex tachycardia 04/28/2012 Overview: Presented to OSH 04/28/12 in setting acute [place] with wide complex tachycardia SVT versus VT. Given adenosine x2 without effect, diltiazem bolus and infusion with no effect. Spontaneous conversion to NSR. Had short run of wide complex tachycardia upon arrival to [facility] from CICU. Pre-op evaluation 04/28/2012 05/01/2012 Overview: Preoperative evaluation for CABG. Not ReDo -Carotids: Ordered -Vein Mapping: Ordered -Bedside PFTs: Ordered -Formal TTE: Ordered -CXR: Completed documented as of this encounter (statuses as of 05/09/2023) [facility] History of Past illness Narrative* Problem Noted [...] 56, Troponin T .37 on admission to [facility] Wide-complex tachycardia 04/28/2012 Overview: Presented to [facility] 04/28/12 in setting acute IN with wide complex tachycardia SVT versus VT. Given adenosine x2 without effect, diltiazem bolus and infusion with no effect. Spontaneous conversion to NSR. Had short run of wide complex tachycardia [facility] 04/28/2012 05/01/2012 Overview: Preoperative evaluation for CABG. Not ReDo -Carotids: Ordered -Vein Mapping: Ordered -Bedside PFTs: Ordered -Formal TTE: Ordered -CXR: Completed documented as of this encounter (statuses as of 08/23/2023) [facility]08-16-[facility] History of Past illness Narrative* Problem Noted [...] 56, Troponin T .37 on admission to [facility] Wide-complex tachycardia 04/28/2012 Overview: Presented to OSH 04/28/12 in setting acute IN with wide complex tachycardia SVT versus VT. Given adenosine x2 without effect, diltiazem bolus and infusion with no effect. Spontaneous conversion to NSR. Had short run of wide complex tachycardia [facility] 04/28/2012 05/01/2012 Overview: Preoperative evaluation for CABG. Not ReDo -Carotids: Ordered -Vein Mapping: Ordered -Bedside PFTs: Ordered -Formal TTE: Ordered -CXR: Completed documented as of this encounter (statuses as of 08/27/2023) [facility] Malignant neoplasm of prostate [...] ClinicEvaluation note* Diagnosis Coronary artery disease involving [place] coronary artery of [place] heart without angina pectoris- Primary Heart failure, [...] stenosis, asymptomatic, bilateral [facility] Diagnosis Chronic systolic heart failure (HCC)- Primary Chronic systolic heart failure Coronary artery disease involving [place] coronary artery of [place] heart without angina pectoris documented in this encounter [facility] note* Diagnosis Malignant neoplasm of prostate (HCC)- Primary Malignant neoplasm of prostate documented in this encounter [facility] note* Diagnosis Chronic systolic heart failure (HCC) Chronic systolic heart failure Coronary artery disease involving [place] coronary artery of [place] heart without angina pectoris documented in this encounter [facility] note* Diagnosis Coronary artery disease involving [place] coronary artery of [place] heart without angina pectoris- Primary Heart failure, acute systolic (HCC) Acute systolic heart failure Preop testing Preoperative examination, unspecified Carotid stenosis, asymptomatic, bilateral Preoperative cardiovascular examination Pre-operative cardiovascular examination documented in this encounter [facility] note* Diagnosis 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 kidney disease, unspecified CKD stage, unspecified whether fdc insulin use (HCC)- Primary PVD (peripheral vascular disease) (HCC) Peripheral vascular disease, unspecified Atherosclerotic heart disease of [place]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) documented in this encounter [facility] for referral (narrative)* Outpatient Procedure (Routine) - Authorized Specialty Diagnoses / Procedures Referred By Contac t Referred To Contact [facility] Diagnoses Chronic systolic heart failure (HCC) Procedures ECHO ECHO TTHRC R-T 2D W/WOM-MODE COMPL SPEC&COLR D Andreas Del Cid MD [address] [place] [address] [facility] [place] [address] Referral ID Status Reason Start Date Expiration Date Visits Requested Visits Authorized [id number] Authorized Auto-Generat ed Referral 06/06/2022 06/06/2023 1 1 * Outpatient Procedure (Routine) - Authorized Specialty Diagnoses / Procedures Referred By Contac t Referred To [facility] Diagnoses Chronic systolic heart failure (HCC) Procedures ECG COMPLETE ECG ROUTINE ECG W/LEAST 12 LDS W/I&R Andreas Del Cid MD [address] [place] [id number] [address] [address] Referral ID Status Reason Start Date Expiration Date Visits Requested Visits Authorized [id number] Authorized Auto-Generat ed Referral 06/06/2022 06/06/2023 1 1 [facility] for referral (narrative)* Outpatient Procedure (Routine) - Authorized Specialty Diagnoses / Procedures Referred By Contac t Referred To Contact [facility] [place] Diagnoses Bilateral carotid artery stenosis Procedures US CAROTID ARTERIES [facility] DUPLEX SCAN EXTRACRANIAL [place] [address] [place] [address] [place] [address] Referral ID Status Reason Start Date Expiration Date Visits Requested Visits Authorized [id number] Authorized Auto-Generat ed Referral 2 08/03/2023 1 1 [facility] for referral (narrative)* Diagnostic Procedure Only (Routine) - Pending Review Specialty Diagnoses / Procedures [facility] To Contact [facility] Diagnoses Chronic systolic heart failure (HCC) Coronary artery disease involving [place] coronary artery of [place] heart without angina pectoris Procedures NM PET/CT CARDIAC VIABILITY MYOCRD IMG PET PRFUJ W/METAB 2RTRACER CNCRNT CT Andreas Del Cid MD [address] [place] [address] [facility] [address] [place] [address] Referral ID Status Reason Start Date Expiration Date Visits Requested Visits Authorized [id number] Pending Review Auto-Generat ed Referral 2 10/06/2023 1 1 * Diagnostic Procedure Only (Routine) - Pending Review Specialty Diagnoses / Procedures [facility] To [facility] Diagnoses Chronic systolic heart failure (HCC) Coronary artery disease involving [place] coronary artery of [place] heart without angina pectoris Procedures NM PET/CT CARDIAC PERF REST/STRESS MYOCRD IMG PET PRFUJ COUNCILLOR ABORIGINAL [place] STD RST & STRS CNCRNT CT Andreas Del Cid MD [address] [place] [address] [facility] [address] [place] [address] Referral ID Status Reason Start Date Expiration Date Visits Requested Visits Authorized [id number] Pending Review Auto-Generat ed Referral 10/06/2023 1 1 [facility] for referral (narrative)* Diagnostic Procedure Only (Routine) - Closed Specialty Diagnoses / Procedures Referred By Contac t Referred To Contact [facility] Diagnoses Chronic systolic heart failure (HCC) Coronary artery disease involving [place] coronary artery of [place] heart without angina pectoris Procedures NM PET/CT CARDIAC VIABILITY MYOCRD IMG PET PRFUJ W/METAB 2RTRACER CNCRNT CT Andreas Del Cid MD [address] [place] [address] [facility] [address] [place] [address] Referral ID Status Reason Start Date Expiration Date V isits Requested Visits Authorized [id number] Closed Auto-Generate d Referral 09/06/2022 10/06/2023 1 1 * Diagnostic Procedure Only (Routine) - Closed Specialty Diagnoses / Procedures Referred By Contac t Referred To Contact [facility] Diagnoses Chronic systolic heart failure (HCC) Coronary artery disease involving [place] coronary artery of [place] heart without angina pectoris Procedures NM PET/CT CARDIAC PERF REST/STRESS MYOCRD IMG PET PRFUJ COUNCILLOR ABORIGINAL [place] STD RST & STRS CNCRNT CT Andreas Del Cid MD [address] [place] [address] [facility] [address] [place] [address] Referral ID Status Reason Start Date Expiration Date V isits Requested Visits Authorized [id number] Closed Auto-Generate d Referral 09/06/2022 10/06/2023 1 1 [facility] Summary Purpose Family History No Family History Records FoundNo Family History Records FoundNo Family History Records FoundNo Family History Records FoundNo Family History Records Found Advance Directives No Advanced Directives Records FoundDocuments on File Type Date 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 Advance Directive(s) 03/24/2019 7:11 AM Additional Source Comments (unrecognized sect ion and content) No Status Records FoundNo Status Records FoundNo Status Records FoundNo Status Records FoundNo Status Records Found INFORMATION SOURCE (unrecogn ized section and content) DATE CREATED AUTHOR [facility]29/2019 [facility] [place] [facility] DATE CREATED AUTHOR AUTHOR'S ORGANIZ ATION 05/25/2022 [facility] DATE CREATED AUTHOR AUTHOR'S ORGANIZ ATION 07/29/2022 [facility] DATE CREATED AUTHOR AUTHOR'S ORGANIZ ATION 02/22/2023 [facility] DATE CREATED AUTHOR AUTHOR'S ORGANIZ ATION 09/25/[address] [facility] Source Comments (unrecognize d section and content) In the event this informatio n is protected by the Federal Confidentiality of Alcohol and Drug Abuse Patient Records regulations: The Federal rules restrict any use of the information to criminally investigate or prosecute any alcohol or drug abuse patient.[facility] the event this information is protected by the Federal Confidentiality of Alcohol and Drug Abuse Patient Records regulations: The Federal rules restrict any use of the information to criminally investigate or prosecute any alcohol or drug abuse patient.[facility] HospitalIn the event this information is protected by the Federal Confidentiality of Alcohol and Drug Abuse Patient Records regulations: The Federal rules restrict any use of the information to criminally investigate or prosecute any alcohol or drug abuse patient.[facility] HospitalIn the event this information is protected by the Federal Confidentiality of Alcohol and Drug Abuse Patient Records regulations: The Federal rules restrict any use of the information to criminally investigate or prosecute any alcohol or drug abuse patient.[facility] HospitalIn the event this information is protected by the Federal Confidentiality of Alcohol and Drug Abuse Patient Records regulations: The Federal rules restrict any use of the information to criminally investigate or prosecute any alcohol or drug abuse patient.[facility] HospitalIn the event this information is protected by the Federal Confidentiality of Alcohol and Drug Abuse Patient Records regulations: The Federal rules restrict any use of the information to criminally investigate or prosecute any alcohol or drug abuse patient.[facility] HospitalIn the event this information is protected by the Federal Confidentiality of Alcohol and Drug Abuse Patient Records regulations: The Federal rules restrict any use of the information to criminally investigate or prosecute any alcohol or drug abuse patient.[facility] HospitalIn the event this information is protected by the Federal Confidentiality of Alcohol and Drug Abuse Patient Records regulations: The Federal rules restrict any use of the information to criminally investigate or prosecute any alcohol or drug abuse patient.[facility] HospitalIn the event this information is protected by the Federal Confidentiality of Alcohol and Drug Abuse Patient Records regulations: The Federal rules restrict any use of the information to criminally investigate or prosecute any alcohol or drug abuse patient.[facility] HospitalIn the event this information is protected by the Federal Confidentiality of Alcohol and Drug Abuse Patient Records regulations: The Federal rules restrict any use of the information to criminally investigate or prosecute any alcohol or drug abuse patient.[facility] HospitalIn the event this information is protected by the Federal Confidentiality of Alcohol and Drug Abuse Patient Records regulations: The Federal rules restrict any use of the information to criminally investigate or prosecute any alcohol or drug abuse patient.[facility] HospitalIn the event this information is protected by the Federal Confidentiality of Alcohol and Drug Abuse Patient Records regulations: The Federal rules restrict any use of the information to criminally investigate or prosecute any alcohol or drug abuse patient.[facility] HospitalIn the event this information is protected by the Federal Confidentiality of Alcohol and Drug Abuse Patient Records regulations: The Federal rules restrict any use of the information to criminally investigate or prosecute any alcohol or drug abuse patient.[facility] HospitalIn the event this information is protected by the Federal Confidentiality of Alcohol and Drug Abuse Patient Records regulations: The Federal rules restrict any use of the information to criminally investigate or prosecute any alcohol or drug abuse patient.[facility] HospitalIn the event this information is protected by the Federal Confidentiality of Alcohol and Drug Abuse Patient Records regulations: The Federal rules restrict any use of the information to criminally investigate or prosecute any alcohol or drug abuse patient.[facility] HospitalIn the event this information is protected by the Federal Confidentiality of Alcohol and Drug Abuse Patient Records regulations: The Federal rules restrict any use of the information to criminally investigate or prosecute any alcohol or drug abuse patient.[facility] HospitalIn the event this information is protected by the Federal Confidentiality of Alcohol and Drug Abuse Patient Records regulations: The Federal rules restrict any use of the information to criminally investigate or prosecute any alcohol or drug abuse patient.[facility] HospitalIn the event this information is protected by the Federal Confidentiality of Alcohol and Drug Abuse Patient Records regulations: The Federal rules restrict any use of the information to criminally investigate or prosecute any alcohol or drug abuse patient.[facility] HospitalIn the event this information is protected by the Federal Confidentiality of Alcohol and Drug Abuse Patient Records regulations: The Federal rules restrict any use of the information to criminally investigate or prosecute any alcohol or drug abuse patient.[facility] HospitalIn the event this information is protected by the Federal Confidentiality of Alcohol and Drug Abuse Patient Records regulations: The Federal rules restrict any use of the information to criminally investigate or prosecute any alcohol or drug abuse patient.[facility] HospitalIn the event this information is protected by the Federal Confidentiality of Alcohol and Drug Abuse Patient Records regulations: The Federal rules restrict any use of the information to criminally investigate or prosecute any alcohol or drug abuse patient.[facility] HospitalIn the event this information is protected by the Federal Confidentiality of Alcohol and Drug Abuse Patient Records regulations: The Federal rules restrict any use of the information to criminally investigate or prosecute any alcohol or drug abuse patient.[facility] HospitalIn the event this information is protected by the Federal Confidentiality of Alcohol and Drug Abuse Patient Records regulations: The Federal rules restrict any use of the information to criminally investigate or prosecute any alcohol or drug abuse patient.[facility] HospitalIn the event this information is protected by the Federal Confidentiality of Alcohol and Drug Abuse Patient Records regulations: The Federal rules restrict any use of the information to criminally investigate or prosecute any alcohol or drug abuse patient.[facility] HospitalIn the event this information is protected by the Federal Confidentiality of Alcohol and Drug Abuse Patient Records regulations: The Federal rules restrict any use of the information to criminally investigate or prosecute any alcohol or drug abuse patient.[facility] HospitalIn the event this information is protected by the Federal Confidentiality of Alcohol and Drug Abuse Patient Records regulations: The Federal rules restrict any use of the information to criminally investigate or prosecute any alcohol or drug abuse patient.[facility] HospitalIn the event this information is protected by the Federal Confidentiality of Alcohol and Drug Abuse Patient Records regulations: The Federal rules restrict any use of the information to criminally investigate or prosecute any alcohol or drug abuse patient.[facility] HospitalIn the event this information is protected by the Federal Confidentiality of Alcohol and Drug Abuse Patient Records regulations: The Federal rules restrict any use of the information to criminally investigate or prosecute any alcohol or drug abuse patient.[facility] HospitalIn the event this information is protected by the Federal Confidentiality of Alcohol and Drug Abuse Patient Records regulations: The Federal rules restrict any use of the information to criminally investigate or prosecute any alcohol or drug abuse patient.[facility] HospitalIn the event this information is protected by the Federal Confidentiality of Alcohol and Drug Abuse Patient Records regulations: The Federal rules restrict any use of the information to criminally investigate or prosecute any alcohol or drug abuse patient.[facility] HospitalIn the event this information is protected by the Federal Confidentiality of Alcohol and Drug Abuse Patient Records regulations: The Federal rules restrict any use of the information to criminally investigate or prosecute any alcohol or drug abuse patient.[facility] Reason for Visit (unrecogniz ed section and content) Reason Comments Radiotherapy On-treatment Visit Reason Comments Prostate Cancer Reason Comments Appointment Reason Comments Received Outside Medical Records Reason Comments Consult Reason Comments Radiology NM Specialty Diagnoses / Procedures Referred By Contac t Referred To Contact [facility] Diagnoses Chronic systolic heart failure (HCC) Coronary artery disease involving [place] coronary artery of [place] heart without angina pectoris Procedures NM PET/CT CARDIAC PERF REST/STRESS MYOCRD IMG PET PRFUJ COUNCILLOR ABORIGINAL [place] STD RST & STRS CNCRNT CT Andreas Del Cid MD [address] [place] [address] Molecular & Functional Imaging [address] [place] [address] Referral ID Status Reason Start Date Expiration Date V isits Requested Visits Authorized [id number] Closed Auto-Generate d Referral 09/06/2022 10/06/2023 1 1 Reason Comments Surgery Cancelled Reason Comments Nm Pet Request Reason Onset Date Comments Refill Request 08/22/2023 Reason Comments Appointment Left a message with the patient regarding the cancellation of 10/22/2023 with . Informed the patient of the new scheduled appointment on 10/29/2023 with . Care Teams (unrecognized sec tion and content) Manager Cleaning Relationship Specialty Start Date End Date Francisca Thompson MD PCP - General Family Practice 05/30/12 Yuliet Gonzaleztan Vagesh [address] [place] [address] Primary Staff Physician Cardiology 12/02/18 Manager Cleaning Relationship Specialty Start Date End Date Francisca Thompson MD PCP - General Family Practice 05/30/12 Carlos Tom Vagesh [address] [place] [address] Primary Staff Physician Cardiology 12/02/18 Manager Cleaning Relationship Specialty Start Date End Date Francisca Thompson MD PCP - General Family Practice 05/30/12 Carlos Tom Vagesh [address] [place] [address] Primary Staff Physician Cardiology 12/02/18 Manager Cleaning Relationship Specialty Start Date End Date Francisca Thompson MD PCP - General Family Practice 05/30/12 Carlos Tom Vagesh [address] [facility] [place] [address] Primary Staff Physician Cardiology 12/02/18 Manager Cleaning Relationship Specialty Start Date End Date Francisca Thompson MD PCP - General Family Practice 05/30/12 [facility] Tom Vagesh [address] [place] [address] Primary Staff Physician Cardiology 12/02/18 Manager Cleaning Relationship Specialty Start Date End Date Francisca Thompson MD PCP - General Family Practice 05/30/12 Carlos, Tom Vagesh [address] [place] [address] Primary Staff Physician Cardiology 12/02/18 Manager Cleaning Relationship Specialty Start Date End Date Francisca Thompson MD PCP - General Family Medicine 05/30/12 Tom Gonzalez Vagesh [address] [place] [address] Primary Staff Physician Cardiology 12/02/18 Manager Cleaning Relationship Specialty Start Date End Date Francisca Thompson MD PCP - General Family Medicine 05/30/12 Tom Gonzalez Vagesh [address] [place] [address] Primary Staff Physician Cardiology 12/02/18 Manager Cleaning Relationship Specialty Start Date End Date Francisca Thompson MD PCP - General Family Medicine 05/30/12 [facility] g[facility] Vagesh [address] [place] [address] Primary Staff Physician Cardiology 12/02/18 Manager Cleaning Relationship Specialty Start Date End Date Francisca Thompson MD PCP - General Family Medicine 05/30/12 [place], Tom Vagesh [address] [place] [address] Primary Staff Physician Cardiology 12/02/18 Manager Cleaning Relationship Specialty Start Date End Date Francisca Thompson MD PCP - General Family Medicine 05/30/12 Felixmireya, Tom Vagesh [address] [place] [address] Primary Staff Physician Cardiology 12/02/18 Manager Cleaning Relationship Specialty Start Date End Date Francisca Thompson MD PCP - General Family Medicine 05/30/12 Carlos, Tom Vagesh [address] [place] [address] Primary Staff Physician Cardiology 12/02/18 Manager Cleaning Relationship Specialty Start Date End Date Francisca Thompson MD PCP - General Family Medicine 05/30/12 Tom Gonzalez Vages[address] [facility] [place] [address] Primary Staff Physician Cardiology 12/02/18 Manager Cleaning Relationship Specialty Start Date End Date Francisca Thompson MD PCP - General Family Medicine 05/30/12 Tom Gonzalez Vagesh [address] [place] [address] Primary Staff Physician Cardiology 12/02/18 Manager Cleaning Relationship Specialty Start Date End Date Francisca Thompson MD PCP - General Family Medicine 05/30/12 Carlos, Tom Vagesh [address] [place] [address] Primary Staff Physician Cardiology 12/02/18 Manager Cleaning Relationship Specialty Start Date End Date Francisca Thompson MD PCP - General Family Medicine 05/30/12 [facility] Tom [facility] [address] [place] [address] Primary Staff Physician Cardiology 12/02/18 Manager Cleaning Relationship Specialty Start Date End Date Francisca Thompson MD PCP - General Family Medicine 05/30/12 [facility] [address] [place] [address] Primary Staff Physician Cardiology 12/02/18 Manager Cleaning Relationship Specialty Start Date End Date Francisca Thompson MD PCP - General Family Medicine 05/30/12 [facility] [address] [place] [address] Primary Staff Physician Cardiology 12/02/18 Manager Cleaning Relationship Specialty Start Date End Date Francisca Thompson MD PCP - General Family Medicine 05/30/12 Tom Gonzalez [facility] [address] [place] [address] Primary Staff Physician Cardiology 12/02/18 Manager Cleaning Relationship Specialty Start Date End Date Francisca Thompson MD PCP - General Family Medicine 05/30/12 [facility] [address] [place] [address] Primary Staff Physician Cardiology 12/02/18 Andreas Del Cid MD [address] [place] [address] Primary Staff Physician Cardiology 04/26/23 Manager Cleaning Relationship Specialty Start Date End Date Francisca Thompson MD PCP - General Family Medicine 05/30/12 Tom Gonzalez [address] [place] [address] Primary Staff Physician Cardiology 12/02/18 Andreas Del Cid MD [address] [place] [address] Primary Staff Physician Cardiology 04/26/23 Manager Cleaning Relationship Specialty Start Date End Date Francisca Thompson MD PCP - General Family Medicine 05/30/12 Tom Gonzalez [address] [place] [address] Primary Staff Physician Cardiology 12/02/18 Andreas Del Cid MD [address] [place] [address] Primary Staff Physician Cardiology 04/26/23 Manager Cleaning Relationship Specialty Start Date End Date Francisca Thompson MD PCP - General Family Medicine 05/30/12 Tom Gonzalez [address] [place] [address] Primary Staff Physician Cardiology 12/02/18 Andreas Del Cid MD [address] [place] [address] Primary Staff Physician Cardiology 04/26/23 [...] BE BASED ON THE PRIMARY CLINICAL RECORDS. [facility]. provides no warranty or guarantee of the accuracy or completeness of information in this document.
--- NOTE | 2023-09-26 18:13 | ED_ITS ---
Documented by User: BEV Riddle 09/26/23 21:26 HPI - Recheck/Abnormal Lab/Rx General Chief Complaint: Recheck/Abnormal Lab/Rx Stated Complaint: ABNORMAL LABS Time Seen by Provider: 09/26/23 17:55 Source: patient Mode of arrival: walk-in History of Present Illness HPI narrative: Patient is an 83-year-old male who presents to the emergency department for outpatient elevated BNP. Patient was contacted by his PCP office to report to the emergency department. He states he has had exertional shortness of breath for several months. He denies any change in his breathing today. He denies chest pain. No peripheral edema. No fevers, chills, cough, congestion. He has as needed torsemide at home which he chooses not to take because it causes him to have extra urination. He states he has not taken it in 3 days. Related Data Home Medications Medication Instructions Recorded Confirmed atorvastatin 40 mg tablet 40 mg PO DAILY 09/26/23 09/26/23 ferrous sulfate 325 mg (65 mg 325 mg PO DAILY 09/26/23 09/26/23 iron) tablet (Feosol) lisinopril 5 mg tablet 5 mg PO DAILY 09/26/23 09/26/23 metoprolol succinate 25 mg 25 mg PO DAILY 09/26/23 09/26/23 tablet,extended release 24 hr thyroid (pork) 15 mg tablet (INDUSTRIAL X RAY OPERATOR 75 mg PO DAILY 09/26/23 09/26/23 Thyroid) torsemide 10 mg tablet 10 mg PO DAILY PRN edema 09/26/23 09/26/23 dapagliflozin propanediol 5 mg 5 mg PO QAM 09/27/23 09/27/23 tablet (Farxiga) ezetimibe 10 mg tablet 10 mg PO DAILY 09/27/23 09/27/23 Allergies Allergy/AdvReac Type Severity Reaction Status Date / Time latex Allergy Severe Verified 09/26/23 18:05 Review of Systems ROS Constitutional Denies: fever or chills Ears, nose, mouth, and throat Denies: throat pain Cardiovascular Denies: chest pain Respiratory Denies: shortness of breath Gastrointestinal Denies: nausea or vomiting Musculoskeletal Reports: extremity swelling; Denies: back pain, neck pain or extremity pain Integumentary/Breast Denies: rash Neurological Denies: headache Endocrine Denies: excessive urination Exam Narrative Exam Narrative: Gen.: Awake, alert, in no distress Head: Normocephalic, atraumatic ENT: Moist mucous membranes Respiratory: No respiratory distress, lungs clear bilaterally Cardio: Regular rate and rhythm Extremities: Moves extremities equally, no Pedal edema Psych: Normal mood and affect Neuro: No focal neuro deficit Skin: Warm, dry, intact Constitutional Vital Signs, click to edit/add: Last Vital Signs Temp 97.8 F 09/26/23 17:58 Pulse 73 09/27/23 05:35 Resp 18 09/27/23 05:35 BP 117/76 09/27/23 05:35 Pulse Ox 96 09/27/23 05:35 O2 Del Method Room Air 09/27/23 05:35 Course Vital Signs Vital signs: Vital Signs Temperature 97.8 F 09/26/23 17:58 Pulse Rate 81 09/26/23 17:58 Respiratory Rate 16 09/26/23 17:58 Blood Pressure 129/73 09/26/23 17:58 Pulse Oximetry 92 L 09/26/23 17:58 Oxygen Delivery Method Room Air 09/26/23 17:58 Temperature 97.8 F 09/26/23 17:58 Pulse Rate 73 09/27/23 05:35 Respiratory Rate 18 09/27/23 05:35 Blood Pressure 117/76 09/27/23 05:35 Pulse Oximetry 96 09/27/23 05:35 Oxygen Delivery Method Room Air 09/27/23 05:35 MDM - Recheck/Abnormal Lab/Rx MDM Narrative Medical decision making narrative: On arrival to the emergency department, patient had no focal medical complaints, no chest pain and no shortness of breath at rest. He states his symptoms have been progressing with exertional dyspnea for several months. He has no peripheral edema, clear lung sounds. Previous BNP was 5700 in May of last year. Initially the plan was to obtain additional labs and admit the patient for diuresis to his PCP at this facility. Chest x-ray shows cardiomegaly with small left pleural effusion. Patient's initial troponin was significantly elevated at 1300. This was repeated and has decreased slightly. Patient has no EKG changes or chest pain in the ER, although while on cardiac monitoring, patient was noted to have a 20 beat run of V. tach. He had no pacemaker/defibrillator firing. Patient did not complain of any dizziness, chest pain or shortness of breath. We do not have in-house cardiology at this facility, the patient was reevaluated by attending physician. Magnesium level is normal. Patient was given a dose of magnesium sulfate as a precaution and AED pads were applied. Patient was also given amiodarone 150 mg. Aspirin was given for the elevated troponin although we deferred heparin at this time.After lengthy discussion with the patient's family members, the patient by attending physician, they request transfer to [facility] where the pacemaker/defibrillator was placed. Patient is known to cardiology at that facility. I spoke with Dr. Steinberg ([id number]) who accepted the patient for transfer to [facility]. Stable at this time. Critical care time 35 min Medical Records Attestation: I reviewed the patient's medical records. Lab Data Attestation: I reviewed the patient's lab results. Labs: Lab Results 09/26/23 09/26/23 09/26/23 Range/Units 18:25 18:36 19:48 Sodium (136-145) mmol/L Potassium (3.5-5.1) mmol/L Chloride (98-107) mmol/L Carbon Dioxide (21.0-32.0) mmol/L Anion Gap BUN (7.0-18.0) mg/dL Creatinine (0.70-1.30) mg/dL Est GFR ( Amer) (>=60) Est GFR (Non-Af Amer) (>=60) BUN/Creatinine Ratio Glucose (74-106) mg/dL Calcium (8.5-10.1) mg/dL Magnesium 2.4 (1.8-2.4) mg/dL Troponin I High Sens 1369.3 H* 1280.3 H* (4.0-76.1) pg/mL NT-Pro-B Natriuret Pep (<=1800.0) pg/mL Influenza Type A Ag Negative Influenza Type B Ag Negative RSV Antigen Not detected (NOT DETECTE) SARS-CoV-2 Ag (CV2AG) Negative (NEGATIVE) 09/27/23 09/27/23 Range/Units 00:10 05:13 Sodium 136 (136-145) mmol/L Potassium 3.8 (3.5-5.1) mmol/L Chloride 104 (98-107) mmol/L Carbon Dioxide 27.9 (21.0-32.0) mmol/L Anion Gap 7.9 BUN 39.0 H (7.0-18.0) mg/dL Creatinine 2.26 H (0.70-1.30) mg/dL Est GFR ( Amer) 34 L (>=60) Est GFR (Non-Af Amer) 28 L (>=60) BUN/Creatinine Ratio 17.3 Glucose 103 (74-106) mg/dL Calcium 9.5 (8.5-10.1) mg/dL Magnesium (1.8-2.4) mg/dL Troponin I High Sens 1236.6 H* 1272.0 H* (4.0-76.1) pg/mL NT-Pro-B Natriuret Pep 83138.0 H* (<=1800.0) pg/mL Influenza Type A Ag Influenza Type B Ag RSV Antigen (NOT DETECTE) SARS-CoV-2 Ag (CV2AG) (NEGATIVE) Imaging Data Chest x-ray: Attestation: I have reviewed the pertinent imaging results. Radiologist's impression: ITS Impressions Chest X-Ray 09/26/23 17:59 IMPRESSION: Small left-sided pleural effusion. Electronically authenticated by: MISA CAN Date: 09/26/2023 19:11 ECG Data Attestation: I personally reviewed and interpreted this ECG as follows: (Normal sinus rhythm at a rate of 83, no acute ST elevation, occasional ectopy. EKG reviewed by attending physician.) Critical Care Time Critical Care Time Critical Care Time: Yes Total Critical Care Time: 35 Attestation: 35 min critical care time for medication administration, monitoring, and transfer to tertiary care Discharge Plan Discharge Chief Complaint: Recheck/Abnormal Lab/Rx Clinical Impression: CHF (congestive heart failure), Elevated troponin, Non-sustained ventricular tachycardia Patient Disposition: [facility] Time of Disposition Decision: 21:25 Discharge Location: [facility] Documented by User: Sheila Olivas MD 09/27/23 06:29 HPI - Recheck/Abnormal Lab/Rx General Chief Complaint: Recheck/Abnormal Lab/Rx Stated Complaint: ABNORMAL LABS Time Seen by Provider: 09/26/23 17:55 Related Data Home Medications Medication Instructions Recorded Confirmed atorvastatin 40 mg tablet 40 mg PO DAILY 09/26/23 09/26/23 ferrous sulfate 325 mg (65 mg 325 mg PO DAILY 09/26/23 09/26/23 iron) tablet (Feosol) lisinopril 5 mg tablet 5 mg PO DAILY 09/26/23 09/26/23 metoprolol succinate 25 mg 25 mg PO DAILY 09/26/23 09/26/23 tablet,extended release 24 hr thyroid (pork) 15 mg tablet (INDUSTRIAL X RAY OPERATOR 75 mg PO DAILY 09/26/23 09/26/23 Thyroid) torsemide 10 mg tablet 10 mg PO DAILY PRN edema 09/26/23 09/26/23 dapagliflozin propanediol 5 mg 5 mg PO QAM 09/27/23 09/27/23 tablet (Farxiga) ezetimibe 10 mg tablet 10 mg PO DAILY 09/27/23 09/27/23 Allergies Allergy/AdvReac Type Severity Reaction Status Date / Time latex Allergy Severe Verified 09/26/23 18:05 Exam Constitutional Vital Signs, click to edit/add: Last Vital Signs Temp 97.8 F 09/26/23 17:58 Pulse 73 09/27/23 05:35 Resp 18 09/27/23 05:35 BP 117/76 09/27/23 05:35 Pulse Ox 96 09/27/23 05:35 O2 Del Method Room Air 09/27/23 05:35 Course Vital Signs Vital signs: Vital Signs Temperature 97.8 F 09/26/23 17:58 Pulse Rate 81 09/26/23 17:58 Respiratory Rate 16 09/26/23 17:58 Blood Pressure 129/73 09/26/23 17:58 Pulse Oximetry 92 L 09/26/23 17:58 Oxygen Delivery Method Room Air 09/26/23 17:58 Temperature 97.8 F 09/26/23 17:58 Pulse Rate 73 09/27/23 05:35 Respiratory Rate 18 09/27/23 05:35 Blood Pressure 117/76 09/27/23 05:35 Pulse Oximetry 96 09/27/23 05:35 Oxygen Delivery Method Room Air 09/27/23 05:35 MDM - Recheck/Abnormal Lab/Rx MDM Narrative Medical decision making narrative: On arrival to the emergency department, patient had no focal medical complaints, no chest pain and no shortness of breath at rest. He states his symptoms have been progressing with exertional dyspnea for several months. He has no peripheral edema, clear lung sounds. Previous BNP was 5700 in May of last year. Initially the plan was to obtain additional labs and admit the patient for diuresis to his PCP at this facility. Chest x-ray shows cardiomegaly with small left pleural effusion. Patient's initial troponin was significantly elevated at 1300. This was repeated and has decreased slightly. Patient has no EKG changes or chest pain in the ER, although while on cardiac monitoring, patient was noted to have a 20 beat run of V. tach. He had no pacemaker/defibrillator firing. Patient did not complain of any dizziness, chest pain or shortness of breath. We do not have in-house cardiology at this facility, the patient was reevaluated by attending physician. Magnesium level is normal. Patient was given a dose of magnesium sulfate as a precaution and AED pads were applied. Patient was also given amiodarone 150 mg. Aspirin was given for the elevated troponin although we deferred heparin at this time.After lengthy discussion with the patient's family members, the patient by attending physician, they request transfer to [facility] where the pacemaker/defibrillator was placed. Patient is known to cardiology at that facility. I spoke with Dr. Steinberg ([id number]) who accepted the patient for transfer to [facility]. Stable at this time. Patient was seen and evaluated in conjunction with the physician pharmacy sales assistant. Please refer to her full H and P. The patient was seen and evaluated by myself with family at bedside. The patient has been having exertional dyspnea. EKG was reviewed and does not show any acute changes and the patient is not having any chest pain. His exertional dyspnea has been ongoing for an extended period of time and he was referred to the emergency department by his family physician. The patient's daughter states that he recently had to dig holes in the ground to bury two cats. He had 2 cats recently and states he has been very sad and hasnt been sleeping. Apparently he has had cardiac issues in the past when he was digging. He was noted to have an elevated troponin at 1369 and elevated BNP at 16 903. While on nuclear monitoring technician he had a run of nonsustained ventricular tachycardia. His AICD did not fire at that time. I discussed with this the patient and he showed me the report from interrogation of his device that showed a nonsustained atrial tachycardia from last month. The results of the labs were discussed with the patient. I explained to him that he has a markedly elevated troponin as well as his BNP and he would benefit from a formal cardiac evaluation. He states that he has been assigned a new burnisher at [facility] but has not had an appointment with him yet. His chest x-ray shows cardiomegaly with a small pleural effusion but no extensive fluid overload. His family requests that he be transferred to the [facility]. The patient is reluctant but ultimately agreeable to this transfer. The case was discussed with Dr. Steinberg, carddiology at [facility] who suggests that the defibrillator may have not fired during the run of ventricular tachycardia because it was not fast enough. His automatic implantable cardiac defibrillator will likely be interrogated at the time of his admission. The patient has remained stable in the emergency department after the run of ventricular tachycardia and administration of 150 mg of IV amiodarone and 2 g of IV magnesium. He has been on the nuclear monitoring technician with no notable ectopy or additional runs of arrhhythmias. Repeat labs were ordered. His troponin was initially 1369 then 1280 then 1236 and 1272. [place] BNP was 91960. After 80 mg of IV Lasix and diuresis his repeat troponin is 25,145. He is not requiring any oxygen or having any chest pain. There is a wait for a bed at [facility] and it is unclear when a bed will become available. The case was discussed with his PCP who is hospitalist at this time and he is accepted for admission to the ICU pending bed availability at [facility]. Lab Data Labs: Lab Results 09/26/23 09/26/23 09/26/23 Range/Units 18:25 18:36 19:48 Sodium (136-145) mmol/L Potassium (3.5-5.1) mmol/L Chloride (98-107) mmol/L Carbon Dioxide (21.0-32.0) mmol/L Anion Gap BUN (7.0-18.0) mg/dL Creatinine (0.70-1.30) mg/dL Est GFR ( Amer) (>=60) Est GFR (Non-Af Amer) (>=60) BUN/Creatinine Ratio Glucose (74-106) mg/dL Calcium (8.5-10.1) mg/dL Magnesium 2.4 (1.8-2.4) mg/dL Troponin I High Sens 1369.3 H* 1280.3 H* (4.0-76.1) pg/mL NT-Pro-B Natriuret Pep (<=1800.0) pg/mL Influenza Type A Ag Negative Influenza Type B Ag Negative RSV Antigen Not detected (NOT DETECTE) SARS-CoV-2 Ag (CV2AG) Negative (NEGATIVE) 09/27/23 09/27/23 Range/Units 00:10 05:13 Sodium 136 (136-145) mmol/L Potassium 3.8 (3.5-5.1) mmol/L Chloride 104 (98-107) mmol/L Carbon Dioxide 27.9 (21.0-32.0) mmol/L Anion Gap 7.9 BUN 39.0 H (7.0-18.0) mg/dL Creatinine 2.26 H (0.70-1.30) mg/dL Est GFR ( Amer) 34 L (>=60) Est GFR (Non-Af Amer) 28 L (>=60) BUN/Creatinine Ratio 17.3 Glucose 103 (74-106) mg/dL Calcium 9.5 (8.5-10.1) mg/dL Magnesium (1.8-2.4) mg/dL Troponin I High Sens 1236.6 H* 1272.0 H* (4.0-76.1) pg/mL NT-Pro-B Natriuret Pep 57654.0 H* (<=1800.0) pg/mL Influenza Type A Ag Influenza Type B Ag RSV Antigen (NOT DETECTE) SARS-CoV-2 Ag (CV2AG) (NEGATIVE) Imaging Data Chest x-ray: Radiologist's impression: ITS Impressions Chest X-Ray 09/26/23 17:59 IMPRESSION: Small left-sided pleural effusion. Electronically authenticated by: MISA CAN Date: 09/26/2023 19:11 Critical Care Time Critical Care Time Total Critical Care Time: 45 Discharge Plan Discharge Chief Complaint: Recheck/Abnormal Lab/Rx Clinical Impression: CHF (congestive heart failure), Elevated troponin, Non-sustained ventricular tachycardia Patient Disposition: [facility] Time of Disposition Decision: 21:25 Discharge Location: [facility]
[2023-09-26 18:56] LABS: Influenza Virus A Antigen Negative; Influenza Virus B Antigen Negative; Internal Control Within Normal Limits; Respiratory Syncytial Virus Not Detected (NOT DETECTE); SARS-CoV-2 Ag NEGATIVE (NEGATIVE)
[2023-09-26 18:58] LABS: Troponin I High Sensitivity 1369.3 pg/mL (4.0-76.1)
[2023-09-26 20:22] LABS: Magnesium 2.4 mg/dL (1.8-2.4)
[2023-09-26] MEDS: AMIODARONE IN DEXTROSE,ISO-OSM 150 MG/100 ML PIGGYBACK 600 MG IV (20:35)
[2023-09-26] MEDS: MAGNESIUM SULFATE IN WATER 2 GM/50 ML PREMIX IV (20:47)
[2023-09-26] MEDS: FUROSEMIDE 40 MG/4 ML VIAL 80 MG IVP (20:56)
[2023-09-26] MEDS: ASPIRIN 81 MG TAB.CHEW 162 MG PO (20:58)
--- NOTE | 2023-09-26 21:03 | PC.NURSE ---
2024. Patient moved to room 6. Fast patches applied.
[2023-09-27] VITALS (60 sets, daily range): BP systolic 116–137; BP diastolic 66–80; PULSE 61–89; RESP 12–27; TEMP 36.2–36.9; O2SAT 77–97; BMI 24.5
[2023-09-27 00:47] LABS: Troponin I High Sensitivity 1236.6 pg/mL (4.0-76.1)
--- NOTE | 2023-09-27 01:41 | PC.NURSE ---
Daughters numbers Crys Martin [phone], Nataly [phone], Charu [phone]
[2023-09-27 05:43] LABS: Anion Gap 7.9; BUN Creatinine Ratio 17.3; Calcium 9.5 mg/dL (8.5-10.1); Carbon Dioxide 27.9 mmol/L (21.0-32.0); Chloride 104 mmol/L (98-107); Estimated GFR (African America 34 (>=60); Estimated GFR (Non-African Ame 28 (>=60); Glucose 103 mg/dL (74-106); Potassium 3.8 mmol/L (3.5-5.1); Sodium 136 mmol/L (136-145)
--- NOTE | 2023-09-27 05:48 | PC.NURSE ---
Dr vargas Trop of 9902 and BNP of 25,145
--- OUTSIDE RECORDS SUMMARY | 2023-09-27 06:51 | XMS_ITS | CCD ---
Author Name Unknown Address [address] [facility] [address] [facility] [address] [place] [address] Organization [facility] Care Team Providers Care Slab Conditioner Supervisor Name Role Phone Francisca Thompson MD Primary Care Provider [phone] Tom Gonzalez Unavailable SHARON HOOKS Referring Unavailable MARLENE KRISHNA Attending Unavailable NORMA ARORA Admitting Unavailable FRANCISCA THOMPSON Primary Care Unavailable Francisca Thompson MD Primary Care Provider [phone] Tom Gonzalez Unavailable MALAIKA FAUST Attending Unavailable MALAIKA FAUST Attending Unavailable Francisca Thompson MD Primary Care Provider [phone] Tom Gonzalez Unavailable [phone] DR FRANCISCA AYERS Primary Care Unavailable MALAIKA [...] Del Cid MD Unavailable Tom Gonzalez Unavailable [phone] Andreas Del Cid MD Unavailable HOY, FRANCISCA [...] Unavailable ANDREAS DEL CID Referring Unavailable HOY, RFANCISCA M Primary Care Unavailable ANDREAS DEL CID [...] [ADHESIVE TAPE (ROSINS)] Allergy to substance 06-16-2012 [facility] Work Phone: (20 sources) Latex; Translations: [LATEX] Drug Allergy 03-13-2019 [facility] (3 sources) Latex Drug allergy (disorder) 11-04-2013 [facility] Repository Medications Current Medications Medication Drug [...] tablet by anuja th once daily. thyroid (group home) 15 mg oral tablet (20 sources) Start: 023 REGIONAL COORDINATOR 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 0 [...] Coronary atherosclerosis; Translations: [Atherosclerotic heart disease of [place] coronary artery without angina pectoris] Onset: [...] 05-15-2022 Episodic Other aftercare (1 source) Other fci (current) drug therapy; Translations: [OTH APPRENTICE COSMETOLOGIST CURRENT DRUG THERAPY] Onset: 05-18-2022 Episodic Other aftercare (1 source) assisted (current) use of anticoagulants; Translations: [APPRENTICE COSMETOLOGIST CURRNT USE ANTICOAGULANTS] Onset: 05-18-2022 Episodic Other [...] Test Name Value Interpretation Reference Range Facility PSA SerPl-mCncon 09-24-2023 Prostate specific Ag [Mass/Vol] ng/mL Normal <2.60 [facility] Comment on above: Order Comment: Speci men Type: BLOOD SPECIMENOrdering Facility: [facility] Address: [address] [place] [address] Result Comment: Tota l PSA test methodology used is the Electrochemiluminescence Immunoassay by [employer]. Total PSA values by differing methodologies cannot be interchanged. Performed By: #### 2 857-1 ####[facility] LABCLIA [id number] [facility] [id number] [id number] [facility] CNPNon 08-27-2023 CNPN Telephone (beBetter HealthN) JOSÉ MIGUEL ROTH JR. ([id number]) 1940 M Date Time Provider Department 08/27/23 VIRGIL GARCIA During your visit today, we recorded the following information about you: Carina Sue 08/27/2023 11:22 AM Signed Left a message [...] 0.4 mg SL tablet as directed. - REGIONAL COORDINATOR 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 - [...] of t*04/28/2012 05/05/2012 Atherosclerotic heart disease of [place] coronar* SUMMARY [V999.95] 04/28/2012 Wide-complex tachycardia [R00.0] 04/28/2012 05/05/2012 Pre-op evaluation [Z01.818] 04/28/2012 05/01/2012 Hyperlipidemia [E78.5] 04/28/2012 Preop testing [Z01.818] 04/29/2012 Stress hyperglycemia [R73.9] 05/01/2012 05/06/2012 Mechanically assisted ventilation [Z99.11] 05/01/2012 05/02/2012 Hypotension [I95.9] 05/01/2012 05/03/2012 Heart failure, acute systolic (HCC) [I50.21] 05/01/2012 Thrombocytopenia ([facility]) [D69.6] 05/01/2012 05/05/2012 Post-operative pain [G89.18] 05/01/2012 05/06/2012 Carotid stenosis [I65.29] 05/01/2012 Atrial fib/flutter, transient 05/03/2012 Occlusion and stenosis of carotid artery withou*06/16/2012 S/P CABG (coronary artery bypass graft) [Z95.1] 06/17/2012 Sweating [OWG4443] 11/17/2012 CAD (coronary artery disease) of artery bypass *11/17/2012 Systolic heart failure (HCC) [I50.20] 11/17/2012 PVD (peripheral vascular disease) ([facility]) [I73.9] 11/17/2012 Prostate cancer ([facility]) [C61] 10/09/2017 Syncope [R55] 03/18/2019 Stroke (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 ([id number]) 1940 M Date Time Provider Department 04/26/23 3:00 PM ANDREAS DEL CID During your visit today, we recorded the following information about you: Pulse Respiration Blood pressure Weight 73/minute 12/minute 116/62 83.9 kg Height 1.829 m Andreas Del Cid MD 04/27/2023 12:57 PM Signed [facility] [place] Jose Martin Silva Department of Cardiovascular Medicine SECTION OF CARDIOVASCULAR IMAGING OUTPATIENT VISIT DATE April 26, 2023 OUTPATIENT VISIT TYPE ESTABLISHED PRIMARY CARE PHYSICIAN: Francisca Thompson [address] [place] [address] REFERRING PHYSICIAN: Francisca Thompson [address] [facility] [address] CHIEF COMPLAINT: Follow up HISTORY OF PRESENT [...] without mention of cerebral infarction Prostate cancer ([facility]) 2020 PVD (peripheral vascular disease) ([facility]) 11/17/2012 Stroke (cerebrum) ([facility]) 09/03/2022 Systolic heart failure (HCC) Thyroid disorder 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 kidney disease, unspecified CKD stage, unspecified whether intermediate manager insulin use ([facility]) 04/26/2023 Ventricular tachycardia (HCC) 04/28/2012 PAST SURGICAL HISTORY Procedure Laterality Date [...] Artery Disease Father Heart Attack Father fatal [place] at age 77 other (atrial fibrillation) Mother other (CHF) Mother other (Other) Mother at age 96 Ischemic Heart Disease Brother CABGx6 first at age 72 No Known Problems Daughter No Known Problems Daughter No Known Problems Daughter other (Other) Other paternal cousin at age 50 of [place] ALLERGIES: ALLERGIES Allergen Reactions Latex Rash Adhesive [...] (more content not included)... Normal [facility] ECG COMPLETEon 04-26-2023 ECG COMPLETE Ventricular Rate : 6 6 BPM Atrial Rate : 66 BPM P-R Interval : 180 ms QRS Duration : 114 ms Q-T Interval : 406 ms QTC Calculation(Bazett) : 425 ms Calculated P [place] : 39 degrees Calculated R [place] : -13 degrees Calculated T [place] : 87 degrees SINUS RHYTHM WITH SINUS ARRHYTHMIA WITH OCCASIONAL PREMATURE VENTRICULAR COMPLEXES CANNOT EXCLUDE OLD INTERIOR INFARCTION ABNORMAL ECG Confirmed by CARMELA CRYSTAL MD ([id number]) on 05/02/2023 7:31:47 PM NAME : JOSÉ MIGUEL ROTH PID : [id number] : 1940 Gender : Male Race : ORD : [id number] Procedure Date : Apr 26 2023 12:40:23 Edit Date : May 02 2023 19:31:54 Diagnosis: SINUS RHYTHM WITH SINUS ARRHYTHMIA WITH OCCASIONAL PREMATURE VENTRICULAR COMPLEXES CANNOT EXCLUDE OLD INTERIOR INFARCTION ABNORMAL ECG Confirmed by CARMELA CRYSTAL MD ([id number]) on 05/02/2023 7:31:47 PM Test Reason : Location : 314 : [facility] j1-4 Overread By : CARMELA CRYSTAL MD Edited By : CARMELA CRYSTAL MD Referred By : ANDREAS DEL CID Acquired by : MAIKOL BURLESON Normal [facility] ECHOon 04-26-2023 Echocardiography Echocardiography Rep ort: Transthoracic Echo [facility] J1-5 Date of service: 04/26/2023 1:20:02 PM NEWS Ordering physician: ANDREAS DEL CID Indication: Evaluation [...] (more content not included)... Normal [facility] CNOVon 04-02-2023 CNOV Office Visit (RADTSA ) JOSÉ MIGUEL ROTH JR. ([id number]) 1940 M Date Time Provider Department 04/02/23 [...] second prostate adenocarcinoma, initial PSA 8, biopsy [place] score 3 + 4 = 7 (grade [...] who recently had to be admitted to longterm due to feels safe. 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 No significant posttreatment problems. Recommend repeat PSA in 6 months. Signed by: Yung Kim MD cc: Francisca Thompson MD [address] [place] [address] Kathie Pavon RN 04/02/2023 4:02 PM Signed AUA 1.5 Kathie Pavon RN Allergies As of Date: 04/02/2023 Noted Allergy Reaction LATEX 03/13/2019 2 - Rash ADHESIVE TAPE (ROSINS) 06/16/2012 2 - Rash Date Reviewed: 04/02/2023 Reviewed by: Kathie Pavon RN - Fully Assessed Reason for Visit: Prostate Cancer [590] Primary Visit Diagnosis:Malignant neoplasm of prostate (HCC) [C61] Order(s):PSA/PROSTSPECAG DIAG [SQPSA] Order #: [id number] FUTURE Prescriptions as of 04/05/2023 - FARXIGA [...] (more content not included)... Normal [facility] PSA SerPl-mCncon 03-26-2023 Prostate specific Ag [Mass/Vol] ng/mL Normal <2.60 [facility] Comment on above: Order Comment: Speci men Type: BLOOD SPECIMENOrdering Facility: [facility] Address: [address] [place], [place] [address] Result Comment: Tota l PSA test methodology used is the Electrochemiluminescence Immunoassay by [employer]. Total PSA values by differing methodologies cannot be interchanged. Performed By: #### 2 857-1 ####[facility] LABCLIA [id number] [place] [address] [place] ICD REMOTE CHECKon 3 AV Delay Adaptive Paced Minimum (ms) 200 ms [facility] AV Delay Adaptive Sensed Minimum (ms) 170 ms [facility] Bj RA Pacing Amplitude (volts) 2.0 V [facility] Bj RA Pacing Polarity BI [facility] Bj RA Pacing Pulse Width (ms) 0.5 ms [facility] Bj RA Sensing Amplitude (mvolts) 0.25 mV [facility] Bj RA Sensing Polarity BI [facility] Bj RV Pacing Amplitude (volts) 2.0 V [facility] Bj RV Pacing Polarity BI [facility] Bj RV Pacing Pulse Width (ms) 0.5 ms [facility] Bj RV Sensing Amplitude (mvolts) 0.3 mV [facility] Bj RV Sensing Polarity BI [facility] Detection Configuration (Vent) 2 - Zone [facility] FastVT_Detection Interval 250 ms [facility] FastVT_Therapy Configuration 1 ATP(s) + 8 Shock(s) [facility] ICD FastVT DetectionStatus ENABLED [facility] ICD-AMS EPISODES 170 {beats}/min [facility] ICD-ATP Episodes (Vent) 0 [facility] ICD-ATRIALFIBRILLAT ION 2 [facility] ICD-ATRIALTACHYCARD IA 2 [facility] ICD-ATRIALTACHYCARD IA 5 [facility] ICD-Device Mfg BSX [facility] ICD-Fast Ventricular Tachycardia 5 [facility] ICD-LEADIMPEDANCEAT RIAL 746 ohm [facility] ICD-Percent Pacing (Atrial) 1 % [facility] ICD-Percent Pacing (Vent) 0 % [facility] ICD-Shocks Aborted (Vent) 0 [facility] [id number] D 0 [facility] ICD-SHOCKSABORTED 0 [facility] ICD-SHOCKSDELIVERED VENTRICULAR 0 [facility] ICD-Ventricular Fibrillation 0 [facility] Lead Impedance (RV) 426 ohm [facility] Lead Impedance High Voltage 49 ohm [facility] Lead1 Mfg BSX [facility] Lead2 Mfg BSX [facility] Location RV [facility] Location RA [facility] Lower Rate (bpm) 50 {beats}/min [facility] Max Sensor Rate (bpm) 130 {beats}/min [facility] MDT_PROG_TACHY_ZONE _DETECTIONS_STATUS ENABLED [facility] Model D142 INOGEN [facility] Model [address] [place] 4-Front [facility] Model 7741 Ingevity MRI [facility] Pacing Mode DDDR [facility] Serial Number [id number] [facility] Serial Number [id number] [facility] Serial Number [id number] [facility] Test Charge Energy 23 J [facility] Test Charge Time 10.2 s [facility] Therapy Status (Vent) Enabled [facility] Thresh RA Capture Amplitude (volts) 0.6 V [facility] Thresh RA Capture Duration (ms) 0.5 ms [facility] Thresh RV Capture Amplitude (VOLTS) 0.5 V [facility] Thresh RV Capture Duration (MS) 0.5 ms [facility] Tracking Rate (bpm) 130 {beats}/min [facility] VF Zone Detection Interval 250 ms [facility] VF Zone Therapy Configuration 1 ATP(s) + 8 Shock(s) [facility] No Panel Informationon 02-21 BLANK _ [facility] ICD-ATRIALTACHYCARD IA 0 [facility] ICD-Fast Ventricular Tachycardia 0 [facility] Implant Date 03/24/2019 [facility] FREE T3on 02-08-2023 FREE T3 3.21 pg/mlL Normal 2.18-3.98 [facility] Comment on above: Performed By: #### V ITAD #### [facility] [address] [place] [address] Dr. Silva Burnett FREE T4on 02-08-2023 Free T4 [Mass/Vol] 0.74 ng/dL Critically low 0.76-1.46 Th e [facility] Comment on above: Performed By: #### B MP, BNP #### [facility] [address] [address] [address] Silva Burnett TSHon 02-08-2023 TSH 0.168 uIU/mL Critically low 0.358-3.740 [facility] Comment on above: Performed By: #### V ITAD #### [facility] [address] [place] [address] Dr. Silva Milton 12-12-2022 DOROTHYN Telephone (cliniq.lyN) IRAJOSÉ MIGUELMINISTERIO Juarez JR. ([id number]) 1940 M Date Time Provider Department 12/12/22 [...] of t*04/28/2012 05/05/2012 CAD (coronary artery disease), [place] coronary *04/28/2012 SUMMARY [V999.95] 04/28/2012 Wide-complex [...] (coronary artery bypass graft) [Z95.1] 06/17/2012 Sweating [VZK0743] 11/17/2012 CAD (coronary artery disease) of artery bypass *11/17/2012 Systolic heart failure (HCC) [I50.20] 11/17/2012 PVD (peripheral vascular disease) (HCC) [I73.9] 11/17/2012 Prostate cancer (HCC) [C61] 10/09/2017 Syncope [R55] 03/18/2019 Stroke (cerebrum) ([facility]) [I63.9] 09/03/2022 Chronic combined systolic and diastolic congest*09/03/2022 Carotid stenosis, asymptomatic, bilateral [I65.*09/03/2022 Encounter Status:Closed by HUBER ESPINAL RN on 12/12/22 [facility] 11-29-2022 [facility] (VAS[facility]N) JOSÉ MIGUEL ROTH ([id number]) 1940 M Date Time Provider Department 11/29/22 JOHN JEFFERSON During your visit today, we recorded the following information about you: Darlene Rajput Sec 11/29/2022 9:12 AM Signed Mr. Roth decided not to move forward with surgery at this time and would like to cancel. Darlene Rajput Line Servicer Allergies As of Date: 11/29/2022 Noted Allergy [...] of t*04/28/2012 05/05/2012 CAD (coronary artery disease), [place] coronary *04/28/2012 SUMMARY [V999.95] 04/28/2012 Wide-complex [...] (coronary artery bypass graft) [Z95.1] 06/17/2012 Sweating [PDN6069] 11/17/2012 CAD (coronary artery disease) of artery bypass *11/17/2012 Systolic heart failure (HCC) [I50.20] 11/17/2012 PVD (peripheral vascular disease) ([facility]) [I73.9] 11/17/2012 Prostate cancer ([facility]) [C61] 10/09/2017 Syncope [R55] 03/18/2019 Stroke (cerebrum) ([facility]) [I63.9] 09/03/2022 Chronic combined systolic and diastolic congest*09/03/2022 Carotid stenosis, asymptomatic, bilateral [I65.*09/03/2022 Encounter Status:Closed by DARLENE SHUKAL on 11/29/22 Normal [facility] ICD REMOTE CHECKon 3 AV Delay Adaptive Paced Minimum (ms) 200 ms [facility] AV Delay Adaptive Sensed Minimum (ms) 170 ms [facility] Bj RA Pacing Amplitude (volts) 2 V [facility] Bj RA Pacing Polarity BI [facility] Bj RA Pacing Pulse Width (ms) 0.5 ms [facility] Bj RA Sensing Amplitude (mvolts) 0.25 mV [facility] Bj RA Sensing Polarity BI [facility] Bj RV Pacing Amplitude (volts) 2 V [facility] Bj RV Pacing Polarity BI [facility] Bj RV Pacing Pulse Width (ms) 0.5 ms [facility] Bj RV Sensing Amplitude (mvolts) 0.3 mV [facility] Bj RV Sensing Polarity BI [facility] Detection Configuration (Vent) 2 - Zone [facility] FastVT_Detection Interval 250 ms [facility] FastVT_Therapy Configuration 1 ATP(s) + 8 Shock(s) [facility] ICD FastVT DetectionStatus ENABLED [facility] ICD-AMS EPISODES 170 {beats}/min [facility] ICD-ATP Episodes (Vent) 0 [facility] ICD-ATRIALFIBRILLAT ION 1 [facility] ICD-ATRIALTACHYCARD IA 1 [facility] ICD-ATRIALTACHYCARD IA 3 [facility] ICD-Device Mfg BSX [facility] ICD-Fast Ventricular Tachycardia 3 [facility] ICD-LEADIMPEDANCEAT RIAL 786 ohm [facility] ICD-Percent Pacing (Atrial) 1 % [facility] ICD-Percent Pacing (Vent) 0 % [facility] ICD-Shocks Aborted (Vent) 0 [facility] [id number] D 0 [facility] ICD-SHOCKSABORTED 0 [facility] ICD-SHOCKSDELIVERED VENTRICULAR 0 [facility] ICD-Ventricular Fibrillation 0 [facility] Lead Impedance (RV) 458 ohm [facility] Lead Impedance High Voltage 53 ohm [facility] Lead1 Mfg BSX [facility] Lead2 Mfg BSX [facility] Location RV [facility] Location RA [facility] Lower Rate (bpm) 50 {beats}/min [facility] Max Sensor Rate (bpm) 130 {beats}/min [facility] MDT_PROG_TACHY_ZONE _DETECTIONS_STATUS ENABLED [facility] Model D142 INOGEN [facility] Model 06[address] [place] 4-Front [facility] Model 7741 Ingevity MRI [facility] Pacing Mode DDDR [facility] Serial Number [id number] [facility] Serial Number [id number] [facility] Serial Number [id number] [facility] Test Charge Energy 23 J [facility] Test Charge Time 10.2 s Justin howell [facility] Therapy Status (Vent) Enabled [facility] Thresh RA Capture Amplitude (volts) 0.6 V [facility] Thresh RA Capture Duration (ms) 0.5 ms [facility] Thresh RV Capture Amplitude (VOLTS) 0.5 V [facility] Thresh RV Capture Duration (MS) 0.5 ms [facility] Tracking Rate (bpm) 130 {beats}/min [facility] VF Zone Detection Interval 250 ms [facility] VF Zone Therapy Configuration 1 ATP(s) + 8 Shock(s) [facility] No Panel Informationon 11-07 BLANK _ [facility] ICD-ATRIALTACHYCARD IA 0 [facility] ICD-Fast Ventricular Tachycardia 0 [facility] Implant Date 03/24/2019 [facility] CNPPrincess 10-31-2022 BENNY Telephone (PAULA) JOSÉ MIGUEL ROTH JR. ([id number]) 1940 M Date Time Provider Department 10/31/22 JOHN JEFFERSON [...] Cardiac scheduled day after surgery ..Tiffany Clifton Allergies As of Date: 10/31/2022 Noted Allergy [...] of t*04/28/2012 05/05/2012 CAD (coronary artery disease), [place] coronary *04/28/2012 SUMMARY [V999.95] 04/28/2012 Wide-complex [...] (coronary artery bypass graft) [Z95.1] 06/17/2012 Sweating [GVO2923] 11/17/2012 CAD (coronary artery disease) of artery bypass *11/17/2012 Systolic heart failure (HCC) [I50.20] 11/17/2012 PVD (peripheral vascular disease) (HCC) [I73.9] 11/17/2012 Prostate cancer (HCC) [C61] 10/09/2017 Syncope [R55] 03/18/2019 Stroke (cerebrum) ([facility]) [I63.9] 09/03/2022 Chronic combined systolic and diastolic congest*09/03/2022 Carotid stenosis, asymptomatic, bilateral [I65.*09/03/2022 Encounter Status:Closed by LIDIA MCCLOUD on 10/31/22 Normal [facility] Comprehensive metabolic 2000 panelon 10-26-2022 Albumin [Mass/Vol] 4.0 g/dL 3.9 - 4.9 g/dL [facility] ALP [Catalytic activity/Vol] 103 U/L 38 - 113 U/L [facility] ALT [Catalytic activity/Vol] 15 U/L 10 - 54 U/L [facility] Anion gap [Moles/Vol] 17 mmol/L 9 - 18 mmol/L [facility] AST [Catalytic activity/Vol] 26 U/L 14 - 40 U/L [facility] Bilirubin [Mass/Vol] 0.6 mg/dL 0.2 - 1.3 mg/dL [facility] Calcium [Mass/Vol] 10.2 mg/dL 8.5 - 10. 2 mg/dL [facility] [facility] Chloride [Moles/Vol] 103 mmol/L 97 - 105 mmol/L [facility] CO2 [Moles/Vol] 20 mmol/L Low 22 - 30 mmol/L [facility] Creatinine [Mass/Vol] 1.89 mg/dL High 0.73 - 1.22 mg/dL [facility] Estimated Glomerular Filtration Rate 35 mL/min/1.73m Low >=60 mL/min/1.73 m [facility] Glucose [Mass/Vol] 103 mg/dL High 74 - 99 mg/dL [facility] Potassium [Moles/Vol] 5.5 mmol/L High 3.7 - 5.1 mmol/L [facility] Protein [Mass/Vol] 7.7 g/dL 6.3 - 8.0 g/dL [facility] Sodium [Moles/Vol] 140 mmol/L 136 - 144 mmol/L [facility] Urea nitrogen [Mass/Vol] 40 mg/dL High 9 - 24 mg/dL [facility] NT PRO BNPon 10-26-2022 Natriuretic peptide.B prohormone N-Terminal [Mass/Vol] 5553 pg/mL High <450 pg/mL [facility] CBC W Auto Differential pane l (Bld)on 10-25-2022 Basophils (Bld) [#/Vol] 10*3/uL Normal <0.11 [facility] Comment on above: Order Comment: Speci men Type: BLOOD SPECIMENOrdering Facility: [facility] Address: [address] [address] Performed By: #### 5 7021-8 ####[facility] LABCLIA [id number] [place] [address] [place] Basophils/100 WBC (Bld) 0.3 % Normal [facility] Comment on above: Order Comment: Speci men Type: BLOOD SPECIMENOrdering Facility: [facility] Address: [address] [address] Performed By: #### 5 7021-8 ####[facility] LABIA [id number] [address] [place] Differential cell count method Nom (Bld) Auto Normal [facility] Comment on above: Order Comment: Speci men Type: BLOOD SPECIMENOrdering Facility: [facility] Address: [address] [place] [address] Performed By: #### 5 7021-8 ####[facility] LABCLIA [id number] [place] [address] [place] Eosinophils (Bld) [#/Vol] 0.20 10*3/uL Normal <0.46 [facility] Comment on above: Order Comment: Speci men Type: BLOOD SPECIMENOrdering Facility: [facility] Address: [address] [place] [address] Performed By: #### 5 7021-8 ####[facility] LABIA [id number] [address] [place] Eosinophils/100 WBC (Bld) 2.7 % Normal [facility] Comment on above: Order Comment: Speci men Type: BLOOD SPECIMENOrdering Facility: [facility] Address: [address] [place], [place] [id number] Performed By: #### 5 7021-8 ####[facility] LABIA [id number] [place] [address] [place] Erythrocyte distribution width (RBC) [Ratio] 13.6 % Normal 11.5-15.0 [facility] Comment on above: Order Comment: Speci men Type: BLOOD SPECIMENOrdering Facility: [facility] Address: [address] [place], [place] [id number] Performed By: #### 5 7021-8 ####[facility] LABCLIA [id number] [place] [address] [place] Hematocrit (Bld) [Volume fraction] 47.3 % Normal 39.0-51.0 [facility] Comment on above: Order Comment: Speci men Type: BLOOD SPECIMENOrdering Facility: [facility] Address: [address] Performed By: #### 5 7021-8 ####[facility] LABCLIA [id number] [place] [address] [place] Hemoglobin (Bld) [Mass/Vol] 14.6 g/dL Normal 13.0-17.0 [facility] Comment on above: Order Comment: Speci men Type: BLOOD SPECIMENOrdering Facility: [facility] Address: [address] Performed By: #### 5 7021-8 ####[facility] LABCLIA [id number] [place] [address] [place] Immature granulocytes (Bld) [#/Vol] 10*3/uL Normal <0.10 [facility] Comment on above: Order Comment: Speci men Type: BLOOD SPECIMENOrdering Facility: [facility] Address: [address] Performed By: #### 5 7021-8 ####[facility] LABIA [id number] [place] [address] [place] Immature granulocytes/100 WBC (Bld) 0.3 % Normal [facility] Comment on above: Order Comment: Speci men Type: BLOOD SPECIMENOrdering Facility: [facility] Address: [address] Performed By: #### 5 7021-8 ####[facility] LABCLIA [id number] [place] [address] [place] Lymphocytes (Bld) [#/Vol] 1.40 10*3/uL Normal 1.00-4.00 [facility] Comment on above: Order Comment: Speci men Type: BLOOD SPECIMENOrdering Facility: [facility] Address: [address] Performed By: #### 5 7021-8 ####[facility] LABCLIA [id number] [address] [place] Lymphocytes/100 WBC (Bld) 19.0 % Normal [facility] Comment on above: Order Comment: Speci men Type: BLOOD SPECIMENOrdering Facility: [facility] Address: [address] [place] [address] Performed By: #### 5 7021-8 ####[facility] LABIA [id number] [address] [place] [facility] MCH (RBC) [Entitic mass] 29.1 pg Normal 26.0-34.0 [facility] Comment on above: Order Comment: Speci men Type: BLOOD SPECIMENOrdering Facility: [facility] Address: [address] [place] [address] Performed By: #### 5 7021-8 ####[facility] LABIA [id number] [address] [place] MCHC (RBC) [Mass/Vol] 30.9 g/dL Normal 30.5-36.0 [facility] Comment on above: Order Comment: Speci men Type: BLOOD SPECIMENOrdering Facility: [facility] Address: [address] [place], [place] [phone] Performed By: #### 5 7021-8 ####[facility] LABIA [id number] [place] [address] [place] MCV (RBC) [Entitic vol] 94.2 fL Normal 80.0-100.0 [facility] Comment on above: Order Comment: Speci men Type: BLOOD SPECIMENOrdering Facility: [facility] Address: [address] [place], [place] [phone] Performed By: #### 5 7021-8 ####[facility] LABIA [id number] [place] [address] [place] Monocytes (Bld) [#/Vol] 0.65 10*3/uL Normal <0.87 [facility] Comment on above: Order Comment: Speci men Type: BLOOD SPECIMENOrdering Facility: [facility] Address: [address] Performed By: #### 5 7021-8 ####[facility] LABCLIA [id number] [place] [address] [place] Monocytes/100 WBC (Bld) 8.8 % Normal [facility] Comment on above: Order Comment: Speci men Type: BLOOD SPECIMENOrdering Facility: [facility] Address: [address] Performed By: #### 5 7021-8 ####[facility] LABCLIA [id number] [place] [address] [place] Neutrophils (Bld) [#/Vol] 5.06 10*3/uL Normal 1.45-7.50 [facility] Comment on above: Order Comment: Speci men Type: BLOOD SPECIMENOrdering Facility: [facility] Address: [address] Performed By: #### 5 7021-8 ####[facility] LABCLIA [id number] [place] [address] [place] Neutrophils/100 WBC (Bld) 68.9 % Normal [facility] Comment on above: Order Comment: Speci men Type: BLOOD SPECIMENOrdering Facility: [facility] Address: [address] [place] [address] Performed By: #### 5 7021-8 ####[facility] LABCLIA [id number] [place] [address] [place] Nucleated RBC (Bld) [#/Vol] 10*3/uL Normal <0.01 [facility] Comment on above: Order Comment: Speci men Type: BLOOD SPECIMENOrdering Facility: [facility] Address: [address] [place] [address] Performed By: #### 5 7021-8 ####[facility] LABIA [id number] [place] [address] [place] Nucleated RBC/100 WBC (Bld) [Ratio] 0.0 /100 WBC Normal [facility] Comment on above: Order Comment: Speci men Type: BLOOD SPECIMENOrdering Facility: [facility] Address: [address] [place] [address] Performed By: #### 5 7021-8 ####[facility] LABIA [id number] [place] [address] [place] Platelet mean volume (Bld) [Entitic vol] 10.7 fL Normal 9.0-12.7 [facility] Comment on above: Order Comment: Speci men Type: BLOOD SPECIMENOrdering Facility: [facility] Address: [address] [place] [address] Performed By: #### 5 7021-8 ####[facility] [id number] [place] [address] [place] Platelets (Bld) [#/Vol] 159 10*3/uL Normal 150-400 [facility] Comment on above: Order Comment: Speci men Type: BLOOD SPECIMENOrdering Facility: [facility] Address: [address] [place] [address] Performed By: #### 5 7021-8 ####[facility] [id number] [place] [address] [place] RBC (Bld) [#/Vol] 5.02 10*6/uL Normal 4.20-6.00 [facility] Comment on above: Order Comment: Speci men Type: BLOOD SPECIMENOrdering Facility: [facility] Address: [address] [place] [address] Performed By: #### 5 7021-8 ####[facility] LABIA [id number] [place] [address] [place] WBC (Bld) [#/Vol] 7.35 10*3/uL Normal 3.70-11.00 [facility] Comment on above: Order Comment: Speci men Type: BLOOD SPECIMENOrdering Facility: [facility] Address: [address] [id number] Performed By: #### 5 7021-8 ####[facility] LABCLIA [id number] [facility] [address] [place] Basophils (Bld) [#/Vol] <0.11 k/uL [facility] Basophils/100 WBC (Bld) 0.3 % [facility] Differential cell count method Nom (Bld) Auto [facility] Eosinophils (Bld) [#/Vol] 0.20 10*3/uL <0.46 k/uL [facility] Eosinophils/100 WBC (Bld) 2.7 % [facility] Erythrocyte distribution width (RBC) [Ratio] 13.6 % 11.5 - 15.0 % [facility] Hematocrit (Bld) [Volume fraction] 47.3 % 39.0 - 51.0 % [facility] Hemoglobin (Bld) [Mass/Vol] 14.6 g/dL 13.0 - 17.0 g/dL [facility] Immature granulocytes (Bld) [#/Vol] <0.10 k/uL [facility] Immature granulocytes/100 WBC (Bld) 0.3 % [facility] Lymphocytes (Bld) [#/Vol] 1.40 10*3/uL 1.00 - 4.00 k/uL [facility] Lymphocytes/100 WBC (Bld) 19.0 % [facility] MCH (RBC) [Entitic mass] 29.1 pg 26.0 - 34.0 pg [facility] MCHC (RBC) [Mass/Vol] 30.9 g/dL 30.5 - 36.0 g/dL [facility] MCV (RBC) [Entitic vol] 94.2 fL 80.0 - 100.0 fL [facility] Monocytes (Bld) [#/Vol] 0.65 10*3/uL <0.87 k/uL [facility] Monocytes/100 WBC (Bld) 8.8 % [facility] Neutrophils (Bld) [#/Vol] 5.06 10*3/uL 1.45 - 7.50 k/uL [facility] Neutrophils/100 WBC (Bld) 68.9 % [facility] Nucleated RBC (Bld) [#/Vol] <0.01 k/uL [facility] Nucleated RBC/100 WBC (Bld) [Ratio] 0.0 /100 WBC [facility] Platelet mean volume (Bld) [Entitic vol] 10.7 fL 9.0 - 12.7 fL [facility] Platelets (Bld) [#/Vol] 159 10*3/uL 150 - 400 k/uL [facility] RBC (Bld) [#/Vol] 5.02 10*6/uL 4.20 - 6.0 0 m/uL [facility] WBC (Bld) [#/Vol] 7.35 10*3/uL 3.70 - 11.00 k/uL [facility] CNOVon 10-25-2022 CNOV Office Visit (ALISSON ) JOSÉ MIGUEL ROTH JR. 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 Dyslipidemia GERD (gastroesophageal reflux disease) Heart failure, acute systolic ([facility]) Hypertension Hypothyroid Myocardial infarct, old Occlusion and stenosis of carotid artery without mention of cerebral infarction Prostate cancer ([facility]) 2020 PVD (peripheral vascular disease) ([facility]) 11/17/2012 Stroke (cerebrum) ([facility]) 09/03/2022 Systolic heart failure ([facility]) Thyroid disorder Ventricular tachycardia 04/28/2012 PAST SURGICAL [...] Artery Disease Father Heart Attack Father fatal [place] at age 77 other (atrial fibrillation) Mother other (CHF) Mother other (Other) Mother at age 96 Ischemic Heart Disease Brother CABGx6 first at age 72 No Known Problems Daughter No Known Problems Daughter No Known Problems Daughter other (Other) Other paternal cousin at age 50 of [place] ALLERGIES: ALLERGIES Allergen Reactions Latex Rash Adhesive [...] (more content not included)... Normal [facility] Comprehensive metabolic 2000 panelon 10-25-2022 Albumin [Mass/Vol] 4.0 g/dL Normal 3.9-4.9 [facility] Comment on above: Order Comment: Speci men Type: BLOOD SPECIMENOrdering Facility: [facility] Address: [address] [place] [address] [place] [address] Performed By: #### 2 4323-8 ####[facility] LABCLIA [id number] [place] [address] [place] ALP [Catalytic activity/Vol] 103 U/L Normal 38-113 [facility] Comment on above: Order Comment: Speci men Type: BLOOD SPECIMENOrdering Facility: [facility] Address: [address] [place], [place] [phone] Performed By: #### 2 4323-8 ####[facility] LABCLIA [id number] [place] [address] [place] ALT [Catalytic activity/Vol] 15 U/L Normal 10-54 [facility] Comment on above: Order Comment: Speci men Type: BLOOD SPECIMENOrdering Facility: [facility] Address: [address] [place] [address] Performed By: #### 2 4323-8 ####[facility] LABCLIA [id number] [place] [address] [place] Anion gap [Moles/Vol] 17 mmol/L Normal 9-18 [facility] Comment on above: Order Comment: Speci men Type: BLOOD SPECIMENOrdering Facility: [facility] Address: [address] [place], [place] [phone] Performed By: #### 2 4323-8 ####[facility] LABCLIA [id number] [place] [address] [place] AST [Catalytic activity/Vol] 26 U/L Normal 14-40 [facility] Comment on above: Order Comment: Speci men Type: BLOOD SPECIMENOrdering Facility: [facility] Address: [address] [place], [place] [id number] Performed By: #### 2 4323-8 ####[facility] LABCLIA [id number] [place] [address] [place] Bilirubin [Mass/Vol] 0.6 mg/dL Normal 0.2-1.3 [facility] Comment on above: Order Comment: Speci men Type: BLOOD SPECIMENOrdering Facility: [facility] Address: [address] Performed By: #### 2 4323-8 ####[facility] LABCLIA [id number] [place] [address] [place] Calcium [Mass/Vol] 10.2 mg/dL Normal 8.5-10.2 [facility] Comment on above: Order Comment: Speci men Type: BLOOD SPECIMENOrdering Facility: [facility] Address: [address] Performed By: #### 2 4323-8 ####[facility] LABCLIA [id number] [place] [address] [place] Chloride [Moles/Vol] 103 mmol/L Normal 97-105 [facility] Comment on above: Order Comment: Speci men Type: BLOOD SPECIMENOrdering Facility: [facility] Address: [address] Performed By: #### 2 4323-8 ####[facility] LABCLIA [id number] [place] [address] [place] CO2 [Moles/Vol] 20 mmol/L Low 22-30 [facility] Comment on above: Order Comment: Speci men Type: BLOOD SPECIMENOrdering Facility: [facility] Address: [address] Performed By: #### 2 4323-8 ####[facility] LABCLIA [id number] [place] [address] [place] Creatinine [Mass/Vol] 1.89 mg/dL High 0.73-1.22 [facility] Comment on above: Order Comment: Speci men Type: BLOOD SPECIMENOrdering Facility: [facility] Address: [address] Performed By: #### 2 4323-8 ####[facility] LABCLIA [id number] [place] [address] [place] ESTIMATED GLOMERULAR FILTRATION RATE 35 mL/min/1.73m??? Low >=60 [facility] Comment on above: Order Comment: Dylan olvera Type: BLOOD SPECIMENOrdering Facility: [facility] Address: [address] [address] Result Comment: Etta mated Glomerular Filtration Rate [...] actual GFR. Performed By: #### 2 4323-8 ####[facility] LABIA [id number] [place] [address] [place] Glucose [Mass/Vol] 103 mg/dL High 74-99 [facility] Comment on above: Order Comment: Dylan olvera Type: BLOOD SPECIMENOrdering Facility: [facility] Address: [address] [place] [address] Result Comment: The [place] [employer] Association (ADA) provides guidance for cutoff [...] Standards of Medical Care in Diabetes 2016, [place] [employer]. Diabetes Care. 2016.39(Suppl 1). Performed By: #### 2 4323-8 ####[facility] LABIA [id number] [id number], [place] [address] [place] Potassium [Moles/Vol] 5.5 mmol/L High 3.7-5.1 [facility] Comment on above: Order Comment: Speci men Type: BLOOD SPECIMENOrdering Facility: [facility] Address: [address] [place] [address] Performed By: #### 2 4323-8 ####[facility] LABCLIA [id number] [place] [address] [place] Protein [Mass/Vol] 7.7 g/dL Normal 6.3-8.0 [facility] Comment on above: Order Comment: Speci men Type: BLOOD SPECIMENOrdering Facility: [facility] Address: [address] [place] [address] Performed By: #### 2 4323-8 ####[facility] LABCLIA [id number] [place] [address] [place] Sodium [Moles/Vol] 140 mmol/L Normal 136-144 [facility] Comment on above: Order Comment: Speci men Type: BLOOD SPECIMENOrdering Facility: [facility] Address: [address] [place] [address] Performed By: #### 2 4323-8 ####[facility] LABCLIA [id number] [place] [address] [place] Urea nitrogen [Mass/Vol] 40 mg/dL High 9-24 [facility] Comment on above: Order Comment: Speci men Type: BLOOD SPECIMENOrdering Facility: [facility] Address: [address] [place], [place] [id number] Performed By: #### 2 4323-8 ####[facility] LABCLIA [id number] [place] [address] [place] GLUCOSE, BLOOD (POC)on 10-25 Glucose [Mass/Vol] 94 mg/dL 74 - 99 mg/dL [facility] Glucose [Mass/Vol] 101 mg/dL Abnormal 74 - 99 mg/dL [facility] PET/CT CARD PERF REST/STR Dick 10-25-2022 CT PET/CT CARD PERF REST/STRESS * * *Final Report* * * DATE OF EXAM: Oct 25 2022 3:26PM RONNI Mayers9 - CT PET/CT CARD PERF REST/STRESS / PROCEDURE REASON: multiple diagnoses * * * * Physician Interpretation * * * * Stress Debrander Report: [facility] Date of service: 10/25/2022 1:23:04 PM [...] the blood glucose was 101 mg/dl. Main [place] Date of service: 10/25/2022 1:23:04 PM Ordering [...] not reported due to low EF. Final CT CTAC Report: [facility] Date of service: 10/25/2022 1:23:04 PM CTAC interpreting physician: Cindy Prince MD PATIENT: Name: MR. JOSÉ MIGUEL Juarez IRA SORTO (more content not included)... Normal [facility] PET/CT CARDIAC VIABILITYo n 10-25-2022 CT PET/CT CARDIAC VIABILITY * * *Final Report* * * DATE OF EXAM: Oct 25 2022 3:26PM [facility] 0102 - CT PET/CT CARDIAC VIABILITY / PROCEDURE REASON: multiple diagnoses * * * * Physician Interpretation * * * * Stress Debrander Report: [facility] Date of service: 10/25/2022 1:23:04 PM Supervising physician: Cindy Prince MD PATIENT: Name: MR. JOSÉ MIGUEL Juarez IRA SORTO Age: 82 years Gender: M The supervising [...] rest, the blood glucose was 101 mg/dl. [facility] Date of service: 10/25/2022 1:23:04 PM [...] not reported due to low EF. Final [place] [facility] Report: [facility] Date of service: 10/25/2022 1:23:04 PM [facility] interpreting physician: Cindy Prince MD PATIENT: Name: MR. JOSÉ MIGUEL Gallardo (more content not included)... Normal [facility] NT-proBNP SerPl-mCncon 10-25 Natriuretic peptide.B prohormone N-Terminal [Mass/Vol] 5553 pg/mL High <450 [facility] Comment on above: Order Comment: Speci men Type: BLOOD SPECIMENOrdering Facility: [facility] Address: [address] [place] [address] Performed By: #### 3 3762-6 ####[facility] LABCLIA [id number] [facility] [id number] [place] [address] No Panel Informationon 10-25 [facility] CNOVon 10-02-2022 CNOV Office Visit (RADTSA ) IRAJOSÉ MIGUEL Juarez ([id number]) 1940 M Date Time Provider Department 10/02/22 1:15 PM Yung KIM During your visit today, we recorded the following information about you: Temperature Pulse Respiration Blood pressure 96.7 degrees 66/minute 18/minute 113/71 Weight 86.2 kg Yung Kim MD 10/08/2022 1:29 PM Signed Radiation Oncology - Follow Up Note PATIENT NAME: José Miguel Hudsoncarter PalmerTitus PATIENT DIAGNOSIS: Trying to get him a note from overview couple days rather do the PET scan for less a significantly Met second prostate adenocarcinoma, initial PSA 8, biopsy [place] score 3 + 4 = 7 (grade group 2), clinical stage T1c, N0, M0, stage IIB [T1-T2, N0, M0, PSA <20, GG 2] (AJCC 8th ed.), s/p TRUS Random biopsy, Patient elected observation and was found to have progression, PSA 08/2021 36.2. and repeat biopsy showing Ivory 7 (3+4) adenocarcinoma. Lela RADIATION SUMMARY: DATES OF TREATMENT: 10/23/2021 to [...] ASSESSMENT/PLAN: Prostate adenocarcinoma, initial PSA 8, biopsy [place] score 3 + 4 = 7 (grade [...] Yung Kim MD cc: Francisca Thompson MD [address] [place] [id number] Kathie Pavon RN 10/08/2022 1:29 PM Signed AUA 1.5 Kathie Pavon RN Allergies As of Date: 10/02/2022 Noted Allergy Reaction LATEX 03/13/2019 2 - Rash ADHESIVE TAPE (ROSINS) 06/16/2012 2 - Rash Date Reviewed: 09/03/2022 Reviewed by: Faith Mcduffie - Fully Assessed Reason for Visit: Prostate Cancer [590] Primary Visit Diagnosis:Malignant neoplasm of prostate (HCC) [C61] Order(s):PSA (OUTSIDE) [7487419] Order #: [id number] PSA/PROSTSPECAG DIAG [SQPSA] Order #: [id number] FUTURE Prescriptions as of (more content not included)... Normal [facility] BNPon 08-30-2022 Natriuretic peptide B (Bld) [Mass/Vol] 5149.0 pg/mL Critically high <=1,800.0 [facility] Comment on above: Performed By: #### B MP, BNP #### [facility] [address] [place] [address] Dr. Silva Burnett PROF CHEM 8 (BAS METB)on Anion gap [Moles/Vol] 9.3 mmol/L Normal [facility] Comment on above: Performed By: #### B MP, BNP #### [facility] [address] [address] [address] Silva Burnett Calcium [Mass/Vol] 9.5 mg/dL Normal 8.5-10.1 [facility] Comment on above: Performed By: #### B MP, BNP #### [facility] [address] [address] [address] Silva Burnett Chloride [Moles/Vol] 103 mmol/L Normal 98-107 [facility] Comment on above: Performed By: #### B MP, BNP #### [facility] [address] [address] [address] Silva Burnett CO2 [Moles/Vol] 30.2 mmol/L Normal 21.0-32.0 [facility] Comment on above: Performed By: #### B MP, BNP #### [facility] [address] [place] [address] Dr. Silva Burnett Creatinine [Mass/Vol] 1.86 mg/dL Critically high 0.70-1.30 [facility] Comment on above: Performed By: #### B MP, BNP #### [facility] [address] [place] [address] Dr. Silva Burnett EGFR-AF PUERTO RICAN 43 mL/min/1.73m2 Critically low >=60 [facility] Comment on above: Performed By: #### B MP, BNP #### [facility] [address] [place] [address] Dr. Silva Burnett EGFR-NON AF PUERTO RICAN 35 mL/min/1.73m2 Critically low >=60 [facility] Comment on above: Performed By: #### B MP, BNP #### [facility] [address] [place] [address] Dr. Silva Burnett Glucose [Mass/Vol] 108 mg/dL Critically high 74-106 T [facility] Comment on above: Performed By: #### B MP, BNP #### [facility] [address] [place] [address] Dr. Silva Burnett Potassium [Moles/Vol] 4.5 mmol/L Normal 3.5-5.1 [facility] Comment on above: Performed By: #### B MP, BNP #### [facility] [address] [place] [address] Dr. Silva Burnett Sodium [Moles/Vol] 138 mmol/L Normal 136-145 [facility] Comment on above: Performed By: #### B MP, BNP #### [facility] [address] [place] [address] Dr. Silva Burnett Urea nitrogen [Mass/Vol] 27.0 mg/dL Critically high 7.0-18.0 [facility] Comment on above: Performed By: #### B MP, BNP #### [facility] [address] [place] [address] Dr. Silva Burnett Urea nitrogen/Creatinine [Mass ratio] 14.5 mg/mg Normal [facility] Comment on above: Performed By: #### B MP, BNP #### [facility] [address] [place] [address] Dr. Silva Burnett ICD REMOTE CHECKon 2 AV Delay Adaptive Paced Minimum (ms) 200 ms [facility] AV Delay Adaptive Sensed Minimum (ms) 170 ms [facility] Bj RA Pacing Amplitude (volts) 2 V [facility] Bj RA Pacing Polarity BI [facility] Bj RA Pacing Pulse Width (ms) 0.5 ms [facility] Bj RA Sensing Amplitude (mvolts) 0.25 mV [facility] Bj RA Sensing Polarity BI [facility] Bj RV Pacing Amplitude (volts) 2 V [facility] Bj RV Pacing Polarity BI [facility] Bj RV Pacing Pulse Width (ms) 0.5 ms [facility] Bj RV Sensing Amplitude (mvolts) 0.3 mV [facility] Bj RV Sensing Polarity BI [facility] Detection Configuration (Vent) 2 - Zone [facility] FastVT_Detection Interval 250 ms [facility] FastVT_Therapy Configuration 1 ATP(s) + 8 Shock(s) [facility] ICD FastVT DetectionStatus ENABLED [facility] ICD-AMS EPISODES 170 {beats}/min [facility] ICD-ATP Episodes (Vent) 0 [facility] ICD-ATRIALFIBRILLAT ION 0 [facility] ICD-ATRIALTACHYCARD IA 1 [facility] ICD-Device Mfg BSX [facility] ICD-Fast Ventricular Tachycardia 1 [facility] ICD-LEADIMPEDANCEAT RIAL 743 ohm [facility] ICD-Percent Pacing (Atrial) 0 % [facility] ICD-Percent Pacing (Vent) 0 % [facility] ICD-Shocks Aborted (Vent) 0 [facility] EFO-IOTHAL-FGLEQETV D 0 [facility] ICD-SHOCKSABORTED 0 [facility] ICD-SHOCKSDELIVERED VENTRICULAR 0 [facility] ICD-Ventricular Fibrillation 0 [facility] Lead Impedance (RV) 431 ohm [facility] Lead Impedance High Voltage 48 ohm [facility] Lead1 Mfg BSX [facility] Lead2 Mfg BSX [facility] Location RV [facility] Location RA [facility] Lower Rate (bpm) 50 {beats}/min [facility] Max Sensor Rate (bpm) 130 {beats}/min [facility] MDT_PROG_TACHY_ZONE _DETECTIONS_STATUS ENABLED [facility] Model D142 INOGEN [facility] Model [address] [place] 4-Front [facility] Model 7741 Ingevity MRI [facility] Pacing Mode DDDR [facility] Serial Number [id number] [facility] Serial Number [id number] [facility] Serial Number [id number] [facility] Test Charge Energy 23 [facility] Test Charge Time 10.1 s [facility] Therapy Status (Vent) Enabled [facility] Thresh RA Capture Amplitude (volts) 0.6 V [facility] Thresh RA Capture Duration (ms) 0.5 ms [facility] Thresh RV Capture Amplitude (VOLTS) 0.5 V [facility] Thresh RV Capture Duration (MS) 0.5 ms [facility] Tracking Rate (bpm) 130 {beats}/min [facility] VF Zone Detection Interval 250 ms [facility] VF Zone Therapy Configuration 1 ATP(s) + 8 Shock(s) [facility] No Panel Informationon 08-07 BLANK _ [facility] ICD-ATRIALTACHYCARD IA 0 [facility] ICD-Fast Ventricular Tachycardia 0 [facility] Implant Date 03/24/2019 [facility] Documentationon 07-26-2022 Documentation [id number] Pramod Roth 1940 Date Provider Department Center 07/26/2022 NELDA VIVEROS [facility] Family History Problem Relation Age of Onset Coronary artery disease Father Coronary artery disease Brother Family Status - Relation Status Age at Father Brother Normal [facility] BNPon 07-23-2022 Natriuretic peptide B (Bld) [Mass/Vol] 5638.0 pg/mL Critically high <=1,800.0 [facility] Comment on above: Performed By: #### B MP, BNP, LIPID #### [facility] [address] [place] [address] Dr. Silva Burnett Follow-Upon 07-23-2022 Follow-Up [id number] Pramod Roth 1940 Date Provider Department Center 07/23/2022 MALAIKA ARELLANO [facility] Family History Problem Relation Age of Onset Coronary artery disease Father Coronary artery disease Brother Family Status - Relation Status Age at Father Brother Level of Service:78491 PA OFFICE/OUTPATIENT ESTABLISHED MOD MDM 30-39 MIN Normal [facility] LIPID PROFILEon 07-23-2022 CHOL-HDL RATIO NORM SEE BELOW Normal [facility] Comment on above: Result Comment: 3.3 - 4.4 LOW RISK 4.4 - 7.1 AVERAGE RISK 7.1 - 11.0 MODERATE RISK >11.0 HIGH RISK Performed By: #### B MP, BNP, LIPID #### [facility] [address] [address] [address] Silva Burnett Cholesterol [Mass/Vol] 126 mg/dL Normal <=200 [facility] Comment on above: Performed By: #### B MP, BNP, LIPID #### [facility] [address] [address] [address] Silva Burnett Cholesterol in HDL [Mass/Vol] 51 mg/dL Normal 40-60 [facility] Comment on above: Performed By: #### B MP, BNP, LIPID #### [facility] [address] [address] [address] Silva Burnett Cholesterol in LDL [Mass/Vol] 61.4 mg/dL Normal [facility] Comment on above: Performed By: #### B MP, BNP, LIPID #### [facility] [address] [address] [address] Silva Burnett Cholesterol.total/C holesterol in HDL [Mass ratio] 2.5 {ratio} Normal [facility] Comment on above: Performed By: #### B MP, BNP, LIPID #### [facility] [address] [address] [address] Silva Burnett HDL NORMAL > or = 60 mg/dl - LO W CARDIOVASCULAR RISK <40 mg/dl - HIGH CARDIOVASCULAR RISK Normal [facility] Comment on above: Performed By: #### B MP, BNP, LIPID #### [facility] [address] [address] [address] Silva Burnett LDL CALC NORMAL SEE BELOW Normal [facility] Comment on above: Result Comment: <100 mg/dl OPTIMAL 100 - 129 mg/dl NEAR OR ABOVE OPTIMAL 130 - 159 mg/dl BORDERLINE HIGH 160 - 189 mg/dl HIGH >190 mg/dl VERY HIGH Performed By: #### B MP, BNP, LIPID #### [facility] [address] [address] [address] Silva Burnett Triglyceride [Mass/Vol] 68 mg/dL Normal <=150 [facility] Comment on above: Performed By: #### B MP, BNP, LIPID #### [facility] [address] [place] [address] Dr. Silva Burnett VLDL CALC 13.6 mg/dL Normal [facility] Comment on above: Performed By: #### B MP, BNP, LIPID #### [facility] [address] [place] [address] Dr. Sivla Burnett PROF CHEM 8 (BAS METB)on Anion gap [Moles/Vol] 10.2 mmol/L Normal [facility] Comment on above: Performed By: #### B MP, BNP, LIPID #### [facility] [address] [place] [address] Dr. Silva Burnett Calcium [Mass/Vol] 9.3 mg/dL Normal 8.5-10.1 [facility] Comment on above: Performed By: #### B MP, BNP, LIPID #### [facility] [address] [place] [address] Dr. Silva Burnett Chloride [Moles/Vol] 102 mmol/L Normal 98-107 [facility] Comment on above: Performed By: #### B MP, BNP, LIPID #### [facility] [address] [place] [address] Dr. Silva Burnett CO2 [Moles/Vol] 29.7 mmol/L Normal 21.0-32.0 [facility] Comment on above: Performed By: #### B MP, BNP, LIPID #### [facility] [address] [place] [address] Dr. Silva Bunrett Creatinine [Mass/Vol] 1.68 mg/dL Critically high 0.70-1.30 [facility] Comment on above: Performed By: #### B MP, BNP, LIPID #### [facility] [address] [place] [address] Dr. Silva Burnett EGFR-AF PUERTO RICAN 48 mL/min/1.73m2 Critically low >=60 [facility] Comment on above: Performed By: #### B MP, BNP, LIPID #### [facility] [address] [address] [address] Silva Burnett EGFR-NON AF PUERTO RICAN 40 mL/min/1.73m2 Critically low >=60 [facility] Comment on above: Performed By: #### B MP, BNP, LIPID #### [facility] [address] [address] [address] Silva Burnett Glucose [Mass/Vol] 97 mg/dL Normal 74-106 [facility] Comment on above: Performed By: #### B MP, BNP, LIPID #### [facility] [address] [place] [address] Dr. Silva Burnett Potassium [Moles/Vol] 3.9 mmol/L Normal 3.5-5.1 [facility] Comment on above: Performed By: #### B MP, BNP, LIPID #### [facility] [address] [place] [address] Dr. Silva Burnett Sodium [Moles/Vol] 138 mmol/L Normal 136-145 [facility] Comment on above: Performed By: #### B MP, BNP, LIPID #### [facility] [address] [place] [address] Dr. Silva Burnett Urea nitrogen [Mass/Vol] 28.0 mg/dL Critically high 7.0-18.0 [facility] Comment on above: Performed By: #### B MP, BNP, LIPID #### [facility] [address] [place] [address] Dr. Silva Burnett Urea nitrogen/Creatinine [Mass ratio] 16.7 mg/mg Normal [facility] Comment on above: Performed By: #### B MP, BNP, LIPID #### [facility] [address] [place] [address] Dr. Silva Burnett FREE T3on 07-18-2022 FREE T3 3.48 pg/mlL Normal 2.18-3.98 [facility] Comment on above: Performed By: #### V ITAD #### [facility] [address] [place] [address] Dr. Silva Burnett FREE T4on 07-18-2022 Free T4 [Mass/Vol] 0.76 ng/dL Normal 0.76-1.46 [facility] Comment on above: Performed By: #### F T4 #### [facility] [address] [address] [address] Silva Burnett TSHon 07-18-2022 TSH 0.074 uIU/mL Critically low 0.358-3.740 [facility] Comment on above: Performed By: #### V ITAD #### [facility] [address] [address] [address] Silva Burnett 36on 07-04-2022 36 Janusz from [facility] cardiac rehab stopped by the office to make us aware that patient reported his dizziness to PCP (Dr. Thompson) and he advised him to hold spironolactone for now. Janusz said his BP was 100/60. He was advised to monitor his weight also. He is still taking Farxiga. Normal [facility] TESTOSTERONE, FREE,DIRECT, T OTALon 07-02-2022 Free Testosterone(Direct ) 1.2 pg/mL Critically low 6.6-18.1 [facility] Comment on above: Result Comment: Perf ormed at: BN Performed By: #### B MP, BNP #### [facility] [address] [place] [address] Dr. Silva Burnett Testosterone [Mass/Vol] 103 ng/dL Critically low 264-916 [facility] Comment on above: Result Comment: Adul t male reference interval is based on a population of healthy nonobese males (BMI <30) between 19 and 39 years old. Keisha et.al. JCEM 2017,102;8614-2359. PMID: [id number]. Performed at: CB Performed By: #### B MP, BNP #### [facility] [address] [place], [place] [id number] Dr. Silva Burnett CORTISOLon 06-29-2022 Cortisol 9.8 ug/dL Normal [facility] Comment on above: Result Comment: Dale isol AM 6.2 - 19.4 Cortisol PM 2.3 - 11.9 Performed By: #### B MP, BNP #### [facility] [address] [id number] Silva Burnett BNPon 06-27-2022 Natriuretic peptide B (Bld) [Mass/Vol] 5384.0 pg/mL Critically high <=1,800.0 [facility] Comment on above: Performed By: #### B MP, BNP #### [facility] [address] [place] [address] Dr. Silva Burnett CBC AUTO DIFFon 06-27-2022 BASO # 0.0 103/ul Normal 0.0-0.1 [facility] Comment on above: Performed By: #### B MP, BNP #### [facility] [address] [place] [address] Dr. Silva Burnett Basophils/100 WBC (Bld) 0.6 % Normal 0.2-2.0 [facility] Comment on above: Performed By: #### B MP, BNP #### [facility] [address] [place] [address] Dr. Silva Burnett EO # 0.4 103/ul Normal 0.0-0.7 [facility] Comment on above: Performed By: #### B MP, BNP #### [facility] [address] [place] [address] Dr. Silva Burnett Eosinophils/100 WBC (Bld) 8.0 % Critically high 0.9-7.0 [facility] Comment on above: Performed By: #### B MP, BNP #### [facility] [address] [place] [address] Dr. Silva Burnett Erythrocyte distribution width (RBC) [Ratio] 15.3 % Critically high 11.0-15.0 [facility] Comment on above: Performed By: #### B MP, BNP #### [facility] [address] [place] [address] Dr. Silva Burnett Hematocrit (Bld) [Volume fraction] 41.0 % Critically low 42.0-54.0 [facility] Comment on above: Performed By: #### B MP, BNP #### [facility] [address] [place] [address] Dr. Silva Burnett Hemoglobin (Bld) [Mass/Vol] 12.8 g/dL Critically low 14.0-18.0 [facility] Comment on above: Performed By: #### B MP, BNP #### [facility] [address] [place] [address] Dr. Silva Burnett IG # 0.02 10e3/ul Normal 0.00-0.03 [facility] Comment on above: Performed By: #### B MP, BNP #### [facility] [address] [place] [address] Dr. Silva Burnett IG % 0.4 % Normal 0.0-0.5 [facility] Comment on above: Performed By: #### B MP, BNP #### [facility] [address] [place] [address] Dr. Silva Burnett LYMPH # 1.3 103/ul Normal 1.2-3.8 [facility] Comment on above: Performed By: #### B MP, BNP #### [facility] [address] [place] [address] Dr. Silva Burnett Lymphocytes/100 WBC (Bld) 25.8 % Normal 20.5-60.0 [facility] Comment on above: Performed By: #### B MP, BNP #### [facility] [address] [place] [address] Dr. Silva Burnett MANUAL DIFF REQ NO Normal [facility] Comment on above: Performed By: #### B MP, BNP #### [facility] [address] [place] [address] Dr. Silva Burnett MCH (RBC) [Entitic mass] 28.9 pg Normal 25.9-34.0 [facility] Comment on above: Performed By: #### B MP, BNP #### [facility] [address] [place] [address] Dr. Silva Burnett MCHC (RBC) [Mass/Vol] 31.2 g/dL Normal 29.9-35.2 [facility] Comment on above: Performed By: #### B MP, BNP #### [facility] [address] [place] [address] Dr. Silva Burnett MCV (RBC) [Entitic vol] 92.6 fL Normal 80.0-94.0 [facility] Comment on above: Performed By: #### B MP, BNP #### [facility] [address] [place] [address] Dr. Silva Burnett MONO # 0.6 103/ul Normal 0.3-0.8 [facility] Comment on above: Performed By: #### B MP, BNP #### [facility] [address] [place] [address] Dr. Silva Burnett Monocytes/100 WBC (Bld) 11.1 % Normal 1.7-12.0 [facility] Comment on above: Performed By: #### B MP, BNP #### [facility] [address] [place] [address] Dr. Silva Burnett NEUT # 2.8 103/ul Normal 1.4-6.5 [facility] Comment on above: Performed By: #### B MP, BNP #### [facility] [address] [place] [address] Dr. Silva Burnett Neutrophils/100 WBC (Bld) 54.1 % Normal 43.0-75.0 [facility] Comment on above: Performed By: #### B MP, BNP #### [facility] [address] [place] [address] Dr. Silva Burnett Platelet mean volume (Bld) [Entitic vol] 10.0 fL Normal 9.5-13.5 [facility] Comment on above: Performed By: #### B MP, BNP #### [facility] [address] [place] [address] Dr. Silva Burnett PLT 144 103/ul Critically low 150-450 [facility] Comment on above: Performed By: #### B MP, BNP #### [facility] [address] [place] [address] Dr. Silva Burnett RBC 4.43 106/ul Critically low 4.70-6.10 [facility] Comment on above: Performed By: #### B MP, BNP #### [facility] [address] [place] [address] Dr. Silva Burnett WBC 5.1 103/ul Normal 4.0-11.0 [facility] Comment on above: Performed By: #### B MP, BNP #### [facility] [address] [place] [address] Dr. Silva Burnett PROF CHEM 8 (BAS METB)on Anion gap [Moles/Vol] 10.2 mmol/L Normal [facility] Comment on above: Performed By: #### B MP, BNP #### [facility] [address] [place] [address] Dr. Silva Burnett Calcium [Mass/Vol] 8.9 mg/dL Normal 8.5-10.1 [facility] Comment on above: Performed By: #### B MP, BNP #### [facility] [address] [place] [address] Dr. Silva Burnett Chloride [Moles/Vol] 104 mmol/L Normal 98-107 [facility] Comment on above: Performed By: #### B MP, BNP #### [facility] [address] [place] [address] Dr. Silva Burnett CO2 [Moles/Vol] 27.1 mmol/L Normal 21.0-32.0 [facility] Comment on above: Performed By: #### B MP, BNP #### [facility] [address] [place] [address] Dr. Silva Burnett Creatinine [Mass/Vol] 1.61 mg/dL Critically high 0.70-1.30 [facility] Comment on above: Performed By: #### B MP, BNP #### [facility] [address] [place] [address] Dr. Silva Burnett EGFR-AF PUERTO RICAN 50 mL/min/1.73m2 Critically low >=60 [facility] Comment on above: Performed By: #### B MP, BNP #### [facility] [address] [place] [address] Dr. Silva Burnett EGFR-NON AF PUERTO RICAN 41 mL/min/1.73m2 Critically low >=60 [facility] Comment on above: Performed By: #### B MP, BNP #### [facility] [address] [place], [place] [id number] Dr. Silva Burnett Glucose [Mass/Vol] 89 mg/dL Normal 74-106 [facility] Comment on above: Performed By: #### B MP, BNP #### [facility] [address] [place] [address] Dr. Silva Burnett Potassium [Moles/Vol] 4.3 mmol/L Normal 3.5-5.1 [facility] Comment on above: Performed By: #### B MP, BNP #### [facility] [address] [place] [address] Dr. Silva Burnett Sodium [Moles/Vol] 137 mmol/L Normal 136-145 [facility] Comment on above: Performed By: #### B MP, BNP #### [facility] [address] [place] [address] Dr. Silva Burnett Urea nitrogen [Mass/Vol] 28.0 mg/dL Critically high 7.0-18.0 [facility] Comment on above: Performed By: #### B MP, BNP #### [facility] [address] [place] [address] Dr. Silva Burnett Urea nitrogen/Creatinine [Mass ratio] 17.4 mg/mg Normal [facility] Comment on above: Performed By: #### B MARQUEZ, BNP #### [facility] [address] [place] [address] Dr. Silva Burnett VITAMIN D 25 OHon 06-27-2022 VIT D 25-OH 85.2 ng/mL Normal [facility] Comment on above: Performed By: #### V ITAD #### [facility] [address] [place] [address] Dr. Silva Burnett VIT D RANGES SEE BELOW Normal [facility] Comment on above: Result Comment: <20 ng/mL Vit D deficient 20 - <30 ng/mL Vit D insufficient 30 - 100 ng/mL Vit D sufficient >100 ng/mL Potential Toxicity Performed By: #### V ITAD #### [facility] [address] [place] [address] Dr. Silva Burnett 36on 06-26-2022 36 Patient [...] made him aware. He verbalized understanding. Normal [facility] Telephoneon 06-26-2022 Telephone [id number] Pramod Roth 1940 M Date Provider Department Center 06/26/2022 928-LYNNETTE FOREMAN CARD [facility] Family History Problem Relation Age of Onset Coronary artery disease Father Coronary artery disease Brother Family Status - Relation Status Age at Father Brother Normal [facility] CREATININEon 06-14-2022 Creatinine [Mass/Vol] 1.71 mg/dL Critically high 0.70-1.30 [facility] Comment on above: Performed By: #### B MP, BNP #### [facility] [address] [address] [address] Silva Burnett EGFR-AF PUERTO RICAN 47 mL/min/1.73m2 Critically low >=60 [facility] Comment on above: Performed By: #### B MP, BNP #### [facility] [address] [address] [address] Silva Burnett EGFR-NON AF PUERTO RICAN 39 mL/min/1.73m2 Critically low >=60 [facility] Comment on above: Performed By: #### B MP, BNP #### [facility] [address] [address] [address] Silva Burnett CTA NECK WO W CONon 06-14-20 CTA NECK WO W CON EXAMINATION: CTA [...] is detailed above. Electronically authenticated by: AYANA FERNNADEZ Date: 2022-06-14 16:39 Normal [facility] Telephoneon 06-08-2022 Telephone [id number] Pramod Roth 1940 M Date Provider Department Center 06/08/2022 [id number]-XANVOJASKARAN TREVINO [facility] Family History Problem Relation Age of Onset Coronary artery disease Father Coronary artery disease Brother Family Status - Relation Status Age at Father Brother Normal [facility] Orders Onlyon 06-01-2022 Orders Only [id number] Pramod Roth 1940 Date Provider Department Center 06/01/2022 KATHIE CHAMPION [facility] Family History Problem Relation Age of Onset Coronary artery disease Father Coronary artery disease Brother Family Status - Relation Status Age at Father Brother Normal [facility] Office Visiton 05-28-2022 Follow-up visit [id number] Pramod Roth 1940 M Date Provider Department Center 05/28/2022 MALAIKA ARELLANO [facility] Family History Problem Relation Age of Onset Coronary artery disease Father Coronary artery disease Brother Family Status - Relation Status Age at Father Brother Level of Service:14435 PA OFFICE/OUTPATIENT ESTABLISHED HIGH MDM 40-54 MIN Reason for Visit and Comments: Coronary Artery Disease [187] Congestive Heart Failure [127] NSVT [Other] Claudication [131] Valve Disorder [3372] Hyperlipidemia [182] Hypertension [859808] Normal [facility] Orders Onlyon 05-28-2022 Orders Only [id number] Pramod Roth 1940 M Date Provider Department Center 05/28/2022 Lillie-ZUNILDA ALANIZ RACHEL [facility] Family History Problem Relation Age of Onset Coronary artery disease Father Coronary artery disease Brother Family Status - Relation Status Age at Father Brother Normal [facility] Abstracton 05-26-2022 Abstract [id number] Pramod Roth 1940 M Date Provider Department Center 05/26/2022 Tulio8-LYNNETTE FOREMAN RACHEL [facility] Family History Problem Relation Age of Onset Coronary artery disease Father Coronary artery disease Brother Family Status - Relation Status Age at Father Brother Normal [facility] BASIC METABOLIC PANELon 09 Calcium [Mass/Vol] 8.8 mg/dL Normal 8.6-10.3 [facility] Comment on above: Order Comment: No: D o not add to previous draw Performed By: #### 2 5508, 82112, 28573, 55570, 38053, 33295 #### [facility] [address] [place] [address], [place] Chloride [Moles/Vol] 103 mmol/L Normal 98-107 [facility] Comment on above: Order Comment: No: D o not add to previous draw Performed By: #### 2 5508, 44816, 78546, 21868, 14466, 80135 #### [facility] [address] [place] [address], [place] CO2 [Moles/Vol] 28 mmol/L Normal 21-31 [facility] Comment on above: Order Comment: No: D o not add to previous draw Performed By: #### 2 5508, 04006, 27606, 98525, 26526, 82740 #### [facility] [address] [place] [address], [place] Creatinine [Mass/Vol] 1.47 mg/dL High 0.70-1.30 [facility] Comment on above: Order Comment: No: D o not add to previous draw Performed By: #### 2 5508, 50281, 18031, 53997, 42929, 65215 #### [facility] [address] [place] [address], [facility] EGFR 48 ml/min/1.73sq m Abnormal >60 [facility] Comment on above: Order Comment: No: D o not add to previous draw Result Comment: [facility]'s estimated glomerular filtration rate (eGFR) will [...] of individuals. Performed By: #### 2 5508, 64651, 67777, 30365, 46602, 02217 #### [facility] [address] [place] [id number], [facility] Glucose [Mass/Vol] 110 mg/dL High 70-100 [facility] Comment on above: Order Comment: No: D o not add to previous draw Performed By: #### 2 5508, 56961, 89923, 38164, 09205, 91802 #### [facility] [address] [place] [address], [place] Potassium [Moles/Vol] 4.3 mmol/L Normal 3.5-5.1 [facility] Comment on above: Order Comment: No: D o not add to previous draw Performed By: #### 2 5508, 19059, 29612, 19275, 55498, 65221 #### [facility] [address] [place] [address], [place] Sodium [Moles/Vol] 136 mmol/L Normal 136-145 [facility] Comment on above: Order Comment: No: D o not add to previous draw Performed By: #### 2 5508, 88855, 95001, 13678, 20946, 29241 #### [facility] [address] [place] [address], [facility] Urea nitrogen [Mass/Vol] 35 mg/dL High 7-25 [facility] Comment on above: Order Comment: No: D o not add to previous draw Performed By: #### 2 5508, 73072, 46992, 41379, 08566, 58498 #### [facility] [address] [place] [address], [facility] MAGNESIUM BLOODon 05-23-2022 Magnesium [Mass/Vol] 2.2 mg/dL Normal 1.9-2.7 [facility] Comment on above: Order Comment: No: D o not add to previous draw Performed By: #### 2 5508, 34776, 63034, 31007, 74051, 09760 #### [facility] [address] [place] [address], [facility] APTTon 05-22-2022 aPTT Coag (Bld) [Time] 28.0 s Normal 25.0-35.0 [facility] Comment on above: Order Comment: No: [...] THIS PURPOSE. Performed By: #### 2 5508, 01822, 42671, 19457, 16244, 47960 #### [facility] [address] [place] [address], [facility] BASIC METABOLIC PANELon Calcium [Mass/Vol] 9.0 mg/dL Normal 8.6-10.3 [facility] Comment on above: Order Comment: No: D o not add to previous draw Performed By: #### 2 5508, 47432, 94473, 20285, 71271, 25188 #### [facility] [address] [place] [address], [facility] Chloride [Moles/Vol] 101 mmol/L Normal 98-107 [facility] Comment on above: Order Comment: No: D o not add to previous draw Performed By: #### 2 5508, 78877, 72740, 35559, 70901, 65624 #### [facility] [address] [place] [address], [place] CO2 [Moles/Vol] 29 mmol/L Normal 21-31 [facility] Comment on above: Order Comment: No: D o not add to previous draw Performed By: #### 2 5508, 21204, 57453, 29729, 04431, 76532 #### [facility] [address] [place] [address], [place] Creatinine [Mass/Vol] 1.67 mg/dL High 0.70-1.30 [facility] Comment on above: Order Comment: No: D o not add to previous draw Performed By: #### 2 5508, 35563, 24860, 28678, 51247, 27448 #### [facility] [address] [place] [address], [facility] EGFR 41 ml/min/1.73sq m Abnormal >60 [facility] Comment on above: Order Comment: No: D o not add to previous draw Result Comment: [facility]'s estimated glomerular filtration rate (eGFR) will [...] of individuals. Performed By: #### 2 5508, 66603, 44309, 99790, 89502, 68840 #### [facility] [address] [place] [address], [place] Glucose [Mass/Vol] 94 mg/dL Normal 70-100 [facility] Comment on above: Order Comment: No: D o not add to previous draw Performed By: #### 2 5508, 47245, 24059, 02822, 81351, 26474 #### [facility] [address] [place] [address], [place] Potassium [Moles/Vol] 4.8 mmol/L Normal 3.5-5.1 [facility] Comment on above: Order Comment: No: D o not add to previous draw Performed By: #### 2 5508, 28813, 32463, 74785, 54019, 18543 #### [facility] [address] [place] [address], [place] Sodium [Moles/Vol] 136 mmol/L Normal 136-145 [facility] Comment on above: Order Comment: No: D o not add to previous draw Performed By: #### 2 5508, 70915, 21314, 15318, 47764, 77058 #### [facility] [address] [place] [address], [place] Urea nitrogen [Mass/Vol] 39 mg/dL High 7-25 [facility] Comment on above: Order Comment: No: D o not add to previous draw Performed By: #### 2 5508, 85455, 38618, 63617, 37564, 36562 #### [facility] [address] [place] [address], [place] MAGNESIUM BLOODon 05-22-2022 Magnesium [Mass/Vol] 1.8 mg/dL Low 1.9-2.7 [facility] Comment on above: Order Comment: No: D o not add to previous draw Performed By: #### 2 5508, 71930, 11884, 33992, 53179, 69859 #### [facility] [address] [place] [address], [facility] APTTon 05-21-2022 aPTT Coag (Bld) [Time] 30.8 s Normal 25.0-35.0 [facility] Comment on above: Order Comment: No: [...] THIS PURPOSE. Performed By: #### 2 5508, 95802, 00496, 95449, 38745, 55865 #### [facility] [address] BASIC METABOLIC PANELon Calcium [Mass/Vol] 8.8 mg/dL Normal 8.6-10.3 [facility] Comment on above: Order Comment: No: D o not add to previous draw Performed By: #### 2 5508, 74410, 38935, 21954, 88254, 10575 #### [facility] [address] [place] [address], [facility] Chloride [Moles/Vol] 103 mmol/L Normal 98-107 [facility] Comment on above: Order Comment: No: D o not add to previous draw Performed By: #### 2 5508, 90097, 48054, 01059, 76051, 02102 #### [facility] [address] [place] [address], [facility] CO2 [Moles/Vol] 26 mmol/L Normal 21-31 [facility] Comment on above: Order Comment: No: D o not add to previous draw Performed By: #### 2 5508, 07342, 57503, 14991, 68267, 13904 #### [facility] [address] [place] [address], [facility] Creatinine [Mass/Vol] 1.47 mg/dL High 0.70-1.30 [facility] Comment on above: Order Comment: No: D o not add to previous draw Performed By: #### 2 5508, 10254, 13991, 94219, 31665, 79546 #### [facility] [address] [place] [address], [facility] EGFR 48 ml/min/1.73sq m Abnormal >60 [facility] Comment on above: Order Comment: No: D o not add to previous draw Result Comment: [facility]'s estimated glomerular filtration rate (eGFR) will [...] of individuals. Performed By: #### 2 5508, 65825, 72042, 75589, 99934, 68678 #### [facility] [address] [place] [address], [facility] Glucose [Mass/Vol] 88 mg/dL Normal 70-100 [facility] Comment on above: Order Comment: No: D o not add to previous draw Performed By: #### 2 5508, 46647, 45008, 27317, 30501, 28244 #### [facility] [address] [place] [address], [facility] Potassium [Moles/Vol] 3.9 mmol/L Normal 3.5-5.1 [facility] Comment on above: Order Comment: No: D o not add to previous draw Performed By: #### 2 5508, 80439, 11709, 62802, 23614, 63071 #### [facility] [address] [place] [address], [facility] Sodium [Moles/Vol] 137 mmol/L Normal 136-145 [facility] Comment on above: Order Comment: No: D o not add to previous draw Performed By: #### 2 5508, 57304, 13205, 60342, 17675, 66121 #### [facility] [address] [place] [address], [facility] Urea nitrogen [Mass/Vol] 45 mg/dL High 7-25 [facility] Comment on above: Order Comment: No: D o not add to previous draw Performed By: #### 2 5508, 50336, 60884, 45402, 68813, 94061 #### [facility] [address] CBC COMPLETE BLOOD COUNTon 0 05-21-2022 Erythrocyte distribution width (RBC) [Ratio] 14.4 % Normal 11.5-15.0 [facility] Comment on above: Order Comment: No: D o not add to previous draw Performed By: #### 2 5508, 52452, 16513, 56461, 34863, 57108 #### [facility] [address] [place] [address], [facility] Hematocrit (Bld) [Volume fraction] 40.8 % Normal 39.0-50.0 [facility] Comment on above: Order Comment: No: D o not add to previous draw Performed By: #### 2 5508, 85186, 65109, 08375, 01472, 07671 #### [facility] [address] [place] [address], [facility] Hemoglobin (Bld) [Mass/Vol] 13.3 g/dL Normal 13.0-17.0 [facility] Comment on above: Order Comment: No: D o not add to previous draw Performed By: #### 2 5508, 85238, 31582, 96854, 74847, 26876 #### [facility] [address] MCH (RBC) [Entitic mass] 28.4 pg Normal 27.0-33.0 [facility] Comment on above: Order Comment: No: D o not add to previous draw Performed By: #### 2 5508, 34494, 18596, 40072, 37317, 98775 #### [facility] [address] [place] [address], [facility] MCHC (RBC) [Mass/Vol] 32.6 g/dL Normal 32.0-35.0 [facility] Comment on above: Order Comment: No: D o not add to previous draw Performed By: #### 2 5508, 78080, 66050, 48987, 14529, 11344 #### [facility] [address] [place] [address], [facility] MCV (RBC) [Entitic vol] 87.0 fL Normal 82.0-98.0 [facility] Comment on above: Order Comment: No: D o not add to previous draw Performed By: #### 2 5508, 28829, 60977, 56610, 95533, 70052 #### [facility] [address] [facility] [place] [address], [facility] Nucleated RBC/100 WBC (Bld) [Ratio] 0 % Normal 0-0 [facility] Comment on above: Order Comment: No: D o not add to previous draw Performed By: #### 2 5508, 48167, 30710, 01917, 73520, 06754 #### [facility] [address] [place] [address], [facility] PLAT CNT 157 10*3/uL Normal 150-400 [facility] Comment on above: Order Comment: No: D o not add to previous draw Performed By: #### 2 5508, 90036, 06898, 20023, 58456, 12533 #### [facility] [address] [place] [address], [facility] RBC (Bld) [#/Vol] 4.69 10*6/uL Normal 4.20-5.70 [facility] Comment on above: Order Comment: No: D o not add to previous draw Performed By: #### 2 5508, 27602, 76667, 76541, 61212, 16168 #### [facility] [address] [facility] [place] [address], [facility] WBC (Bld) [#/Vol] 6.19 10*3/uL Normal 4.00-10.60 [facility] Comment on above: Order Comment: No: D o not add to previous draw Performed By: #### 2 5508, 93986, 32667, 79788, 31671, 80096 #### [facility] [address] [facility] MAGNESIUM BLOODon 05-21-2022 Magnesium [Mass/Vol] 1.9 mg/dL Normal 1.9-2.7 [facility] Comment on above: Order Comment: No: D o not add to previous draw Performed By: #### 2 5508, 24285, 29440, 53923, 72368, 81059 #### [facility] [address] [facility] [address] APTTon 05-20-2022 aPTT Coag (Bld) [Time] 28.4 s Normal 25.0-35.0 [facility] Comment on above: Order Comment: No: [...] THIS PURPOSE. Performed By: #### 2 5508, 37243, 43805, 61225, 40566, 85558 #### [facility] [address] [place] [address], [facility] BASIC METABOLIC PANELon 09-0 -2021 Calcium [Mass/Vol] 9.0 mg/dL Normal 8.6-10.3 [facility] Comment on above: Order Comment: No: D o not add to previous draw Performed By: #### 1 0070, 30316, 18553 #### [facility] [address] [place] [address], [facility] Chloride [Moles/Vol] 105 mmol/L Normal 98-107 [facility] Comment on above: Order Comment: No: D o not add to previous draw Performed By: #### 1 0070, 02381, 59610 #### [facility] [address] [place] [address], [facility] CO2 [Moles/Vol] 26 mmol/L Normal 21-31 [facility] Comment on above: Order Comment: No: D o not add to previous draw Performed By: #### 1 0070, 16255, 32972 #### [facility] [address] [place] [address], [facility] Creatinine [Mass/Vol] 1.42 mg/dL High 0.70-1.30 [facility] Comment on above: Order Comment: No: D o not add to previous draw Performed By: #### 1 0070, 97967, 94764 #### [facility] [address] [place] [address], [facility] EGFR 50 ml/min/1.73sq m Abnormal >60 [facility] Comment on above: Order Comment: No: D o not add to previous draw Result Comment: [facility]'s estimated glomerular filtration rate (eGFR) will [...] of individuals. Performed By: #### 1 0070, 54976, 05912 #### [facility] [address] [place] [address], [place] Glucose [Mass/Vol] 107 mg/dL High 70-100 [facility] Comment on above: Order Comment: No: D o not add to previous draw Performed By: #### 1 0070, 09558, 81575 #### [facility] [address] [place] [address], [place] Potassium [Moles/Vol] 3.9 mmol/L Normal 3.5-5.1 [facility] Comment on above: Order Comment: No: D o not add to previous draw Performed By: #### 1 0070, 11797, 08198 #### [facility] [address] [place] [address], [place] Sodium [Moles/Vol] 139 mmol/L Normal 136-145 [facility] Comment on above: Order Comment: No: D o not add to previous draw Performed By: #### 1 0070, 85648, 70409 #### [facility] [address] [place] [address], [place] Urea nitrogen [Mass/Vol] 50 mg/dL High 7-25 [facility] Comment on above: Order Comment: No: D o not add to previous draw Performed By: #### 1 0070, 26336, 76088 #### [facility] [address] [place] [address], [place] CBC COMPLETE BLOOD COUNTon 0 05-20-2022 Erythrocyte distribution width (RBC) [Ratio] 14.3 % Normal 11.5-15.0 [facility] Comment on above: Order Comment: No: D o not add to previous draw Performed By: #### 2 2248, 22793, 42294, 55084, 45577, 70216 #### [facility] [address] [place] [id number], [facility] Hematocrit (Bld) [Volume fraction] 44.1 % Normal 39.0-50.0 [facility] Comment on above: Order Comment: No: D o not add to previous draw Performed By: #### 2 5508, 03107, 55536, 40886, 92109, 28413 #### [facility] [address] [place] [address], [facility] Hemoglobin (Bld) [Mass/Vol] 14.5 g/dL Normal 13.0-17.0 [facility] Comment on above: Order Comment: No: D o not add to previous draw Performed By: #### 2 5508, 73173, 45175, 75035, 59770, 13904 #### [facility] [address] [place] [id number], [facility] IMM PLATELET FRAC 5.4 % Normal 0.8-6.3 [facility] Comment on above: Order Comment: No: D o not add to previous draw Performed By: #### 2 5508, 61612, 35164, 39221, 01498, 55441 #### [facility] [address] [place] [address], [facility] MCH (RBC) [Entitic mass] 29.1 pg Normal 27.0-33.0 [facility] Comment on above: Order Comment: No: D o not add to previous draw Performed By: #### 2 5508, 76857, 82407, 00735, 21085, 61231 #### [facility] [address] [place] [id number], [facility] MCHC (RBC) [Mass/Vol] 32.9 g/dL Normal 32.0-35.0 [facility] Comment on above: Order Comment: No: D o not add to previous draw Performed By: #### 2 5508, 39369, 10275, 50612, 14682, 77829 #### [facility] [address] [place] [address], [facility] MCV (RBC) [Entitic vol] 88.6 fL Normal 82.0-98.0 [facility] Comment on above: Order Comment: No: D o not add to previous draw Performed By: #### 2 5508, 72413, 19859, 82357, 21956, 31861 #### [facility] [address] [place] [address], [facility] Nucleated RBC/100 WBC (Bld) [Ratio] 0 % Normal 0-0 [facility] Comment on above: Order Comment: No: D o not add to previous draw Performed By: #### 2 5508, 08525, 10544, 63512, 56284, 59661 #### [facility] [address] [place] [address], [facility] PLAT CNT 138 10*3/uL Low 150-400 [facility] Comment on above: Order Comment: No: D o not add to previous draw Performed By: #### 2 5508, 19680, 71183, 73937, 17850, 90408 #### [facility] [address] [place] [address], [facility] RBC (Bld) [#/Vol] 4.98 10*6/uL Normal 4.20-5.70 [facility] Comment on above: Order Comment: No: D o not add to previous draw Performed By: #### 2 5508, 81397, 95712, 16813, 92554, 94015 #### [facility] [address] [place] [address], [facility] WBC (Bld) [#/Vol] 5.80 10*3/uL Normal 4.00-10.60 [facility] Comment on above: Order Comment: No: D o not add to previous draw Performed By: #### 2 5508, 60228, 28219, 79529, 38760, 62788 #### [facility] [address] [place] [address], [facility] MAGNESIUM BLOODon 05-20-2022 Magnesium [Mass/Vol] 2.0 mg/dL Normal 1.9-2.7 [facility] Comment on above: Order Comment: No: D o not add to previous draw Performed By: #### 1 0070, 60089, 68459 #### [facility] [address] [place] [address], [facility] PHOSPHORUS BLOODon Phosphate [Mass/Vol] 3.5 mg/dL Normal 2.5-5.0 [facility] Comment on above: Order Comment: No: D o not add to previous draw Performed By: #### 1 0070, 12285, 40819 #### [facility] [address] [place] [address], [facility] APTTon 05-19-2022 aPTT Coag (Bld) [Time] 30.3 s Normal 25.0-35.0 [facility] Comment on above: Order Comment: No: [...] THIS PURPOSE. Performed By: #### 2 5508, 60003, 06446, 53008, 88272, 78273 #### [facility] [address] [place] [address], [facility] BASIC METABOLIC PANELon Calcium [Mass/Vol] 8.5 mg/dL Low 8.6-10.3 [facility] Comment on above: Order Comment: No: D o not add to previous draw Performed By: #### 2 5508, 24887, 89541, 77855, 22245, 07963 #### [facility] [address] [place] [address], [facility] Chloride [Moles/Vol] 104 mmol/L Normal 98-107 [facility] Comment on above: Order Comment: No: D o not add to previous draw Performed By: #### 2 5508, 21693, 95888, 13049, 33612, 91859 #### [facility] [address] [place] [address], [place] CO2 [Moles/Vol] 24 mmol/L Normal 21-31 [facility] Comment on above: Order Comment: No: D o not add to previous draw Performed By: #### 2 5508, 65618, 39699, 87575, 44537, 77887 #### [facility] [address] [place] [id number], [facility] Creatinine [Mass/Vol] 2.02 mg/dL High 0.70-1.30 [facility] Comment on above: Order Comment: No: D o not add to previous draw Performed By: #### 2 5508, 99239, 66396, 99349, 13575, 24809 #### [facility] [address] [place] [address], [facility] EGFR 33 ml/min/1.73sq m Abnormal >60 [facility] Comment on above: Order Comment: No: D o not add to previous draw Result Comment: [facility]'s estimated glomerular filtration rate (eGFR) will [...] of individuals. Performed By: #### 2 5508, 83643, 58636, 53595, 94612, 34096 #### [facility] [address] [place] [address], [place] Glucose [Mass/Vol] 121 mg/dL High 70-100 [facility] Comment on above: Order Comment: No: D o not add to previous draw Performed By: #### 2 5508, 15114, 50268, 48357, 73846, 20797 #### [facility] [address] [place] [id number], [facility] Potassium [Moles/Vol] 3.1 mmol/L Low 3.5-5.1 [facility] Comment on above: Order Comment: No: D o not add to previous draw Performed By: #### 2 5508, 02728, 77341, 13506, 84785, 99097 #### [facility] [address] [place] [address], [facility] Sodium [Moles/Vol] 137 mmol/L Normal 136-145 [facility] Comment on above: Order Comment: No: D o not add to previous draw Performed By: #### 2 5508, 60979, 09269, 52963, 16649, 96020 #### [facility] [address] [place] [address], [facility] Urea nitrogen [Mass/Vol] 61 mg/dL High 7-25 [facility] Comment on above: Order Comment: No: D o not add to previous draw Performed By: #### 2 5508, 25913, 40919, 57135, 11511, 19206 #### [facility] [address] [place] [address], [facility] CBC COMPLETE BLOOD COUNTon 0 - Erythrocyte distribution width (RBC) [Ratio] 14.2 % Normal 11.5-15.0 [facility] Comment on above: Order Comment: No: D o not add to previous draw Performed By: #### 2 5508, 49412, 39486, 79760, 38292, 52118 #### [facility] [address] [place] [id number], [facility] Hematocrit (Bld) [Volume fraction] 41.1 % Normal 39.0-50.0 [facility] Comment on above: Order Comment: No: D o not add to previous draw Performed By: #### 2 5508, 75256, 73907, 30392, 76130, 50137 #### [facility] [address] [place] [address], [facility] Hemoglobin (Bld) [Mass/Vol] 13.8 g/dL Normal 13.0-17.0 [facility] Comment on above: Order Comment: No: D o not add to previous draw Performed By: #### 2 5508, 12358, 01042, 79886, 55042, 93978 #### [facility] [address] [place] [address], [facility] IMM PLATELET FRAC 4.8 % Normal 0.8-6.3 [facility] Comment on above: Order Comment: No: D o not add to previous draw Performed By: #### 2 5508, 11474, 00240, 87217, 57328, 02406 #### [facility] [address] [place] [address], [facility] MCH (RBC) [Entitic mass] 29.0 pg Normal 27.0-33.0 [facility] Comment on above: Order Comment: No: D o not add to previous draw Performed By: #### 2 5508, 43878, 82910, 19453, 67381, 86790 #### [facility] [address] [place] [address], [facility] MCHC (RBC) [Mass/Vol] 33.6 g/dL Normal 32.0-35.0 [facility] Comment on above: Order Comment: No: D o not add to previous draw Performed By: #### 2 5508, 24163, 45547, 51267, 78792, 69094 #### [facility] [address] [place] [address], [place] MCV (RBC) [Entitic vol] 86.3 fL Normal 82.0-98.0 [facility] Comment on above: Order Comment: No: D o not add to previous draw Performed By: #### 2 5508, 07477, 34889, 00863, 63859, 36681 #### [facility] [address] [place] [address], [facility] Nucleated RBC/100 WBC (Bld) [Ratio] 0 % Normal 0-0 [facility] Comment on above: Order Comment: No: D o not add to previous draw Performed By: #### 2 5508, 74009, 98296, 08201, 28571, 84175 #### [facility] [address] [place] [address], [facility] PLAT CNT 116 10*3/uL Low 150-400 [facility] Comment on above: Order Comment: No: D o not add to previous draw Performed By: #### 2 5508, 53176, 56750, 42177, 61229, 77792 #### [facility] [address] [place] [address], [facility] RBC (Bld) [#/Vol] 4.76 10*6/uL Normal 4.20-5.70 [facility] Comment on above: Order Comment: No: D o not add to previous draw Performed By: #### 2 5508, 01001, 93237, 21795, 04703, 34398 #### [facility] [address] [place] [address], [place] WBC (Bld) [#/Vol] 5.16 10*3/uL Normal 4.00-10.60 [facility] Comment on above: Order Comment: No: D o not add to previous draw Performed By: #### 2 5508, 37832, 27177, 78577, 76545, 67921 #### [facility] [address] [place] [address], [facility] Cardiovascular Lab Reporton 05-19-2022 Cardiovascular Lab Report [facility] Patient Name: [facility] MR #: [id number] Department of Physician: Vic Nunes M.D. Division of Service Date: 05/18/2022 Cardiology Birthdate: 1940 Adult Cardiovascular Room #: [id number] [facility] [address] [place] [id number] Cardiovascular Laboratory Report FINAL IMPRESSIONS: 1. 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 2. Two bypass grafts patent; left internal mammary artery graft to the left anterior descending and saphenous vein graft to the obtuse marginal. 3. Robust [id number] collaterals. 4. Patent left subclavian artery. RECOMMENDATIONS: [...] internal mammary artery graft, placement of a 6-Ethiopian MynxGrip closure device. METHODS: After risks, benefits, and alternatives were explained, written informed consent was obtained. The patient was prepped and draped in usual sterile fashion over both groins. Using 1% lidocaine solution, local infiltration anesthesia was achieved. Using a modified Seldinger technique and a micropuncture kit and on the ultrasound guidance access to the right common femoral artery was obtained. A 6-Ethiopian 11 cm sheath was inserted without difficulty. [...] conclude the procedure. All catheters removed. A 6-Ethiopian MynxGrip closure device was deployed per protocol achieving optimal hemostasis. Overall, the patient tolerated the procedure well. There were no complications. He was to be transferred to the holding area in stable condition. FINDINGS: Hemodynamics. AO [...] P Sonja Hall M.D. Date Dict: 05/18/2022/01:19 Cyndie/Sonja Hall M.D. Date Trans: 05/19/2022 05:44 A/radha [id number] cc: Francisca Thompson M.D. [address] [facility] Chelsi [facility] [address] Normal [facility] MAGNESIUM BLOODon 05-19-2022 Magnesium [Mass/Vol] 2.0 mg/dL Normal 1.9-2.7 [facility] Comment on above: Order Comment: No: D o not add to previous draw Performed By: #### 1 0070, 00792 #### [facility] [address] [place] [address], [facility] APTTon 05-18-2022 aPTT Coag (Bld) [Time] 80.7 s Critically high 25.0-35.0 [facility] Comment on above: Order Comment: No: D o not add to previous draw Result Comment: Resu lt checked and called. Accurately read back by DREA SINGH RN ON 05/18/2022 AT 14:48 Performed By: #### 2 5508, 26163, 86488, 10886, 60820, 87458 #### [facility] [address] [place] [address], [facility] aPTT Coag (Bld) [Time] 135.2 s Critically high 25.0-35.0 [facility] Comment on above: Order Comment: No: D o not add to previous draw Result Comment: Resu lt checked and called. Accurately read back by Pepe Connolly rn at 0447 Performed By: #### 2 5508, 49182, 57014, 13185, 68220, 07462 #### [facility] [address] CBC COMPLETE BLOOD COUNTon 0 05-18-2022 Erythrocyte distribution width (RBC) [Ratio] 14.1 % Normal 11.5-15.0 [facility] Comment on above: Order Comment: No: D o not add to previous draw Performed By: #### 2 5508, 05946, 12266, 80482, 96621, 25275 #### [facility] [address] [place] [address], [facility] Hematocrit (Bld) [Volume fraction] 43.0 % Normal 39.0-50.0 [facility] Comment on above: Order Comment: No: D o not add to previous draw Performed By: #### 2 5508, 83665, 23087, 20093, 51147, 82073 #### [facility] [address] [place] [address], [facility] Hemoglobin (Bld) [Mass/Vol] 14.3 g/dL Normal 13.0-17.0 [facility] Comment on above: Order Comment: No: D o not add to previous draw Performed By: #### 2 5508, 92871, 25652, 70484, 33155, 33090 #### [facility] [address] [place] [address], [facility] MCH (RBC) [Entitic mass] 28.8 pg Normal 27.0-33.0 [facility] Comment on above: Order Comment: No: D o not add to previous draw Performed By: #### 2 5508, 92754, 00746, 92387, 50084, 15816 #### [facility] [address] [place] [address], [facility] MCHC (RBC) [Mass/Vol] 33.3 g/dL Normal 32.0-35.0 [facility] Comment on above: Order Comment: No: D o not add to previous draw Performed By: #### 2 5508, 77510, 91167, 18898, 25858, 89525 #### [facility] [address] [place] [address], [facility] MCV (RBC) [Entitic vol] 86.5 fL Normal 82.0-98.0 [facility] Comment on above: Order Comment: No: D o not add to previous draw Performed By: #### 2 5508, 41259, 04079, 93480, 61346, 71509 #### [facility] [address] [place] [id number], [facility] Nucleated RBC/100 WBC (Bld) [Ratio] 0 % Normal 0-0 [facility] Comment on above: Order Comment: No: D o not add to previous draw Performed By: #### 2 5508, 46692, 08405, 10843, 51274, 47683 #### [facility] [address] [place] [address], [facility] PLAT CNT 105 10*3/uL Low 150-400 [facility] Comment on above: Order Comment: No: D o not add to previous draw Performed By: #### 2 5508, 01004, 13000, 99097, 06540, 13694 #### [facility] [address] [place] [address], [facility] RBC (Bld) [#/Vol] 4.97 10*6/uL Normal 4.20-5.70 [facility] Comment on above: Order Comment: No: D o not add to previous draw Performed By: #### 2 5508, 15397, 66699, 58968, 05478, 81884 #### [facility] [address] [place] [address], [facility] WBC (Bld) [#/Vol] 5.28 10*3/uL Normal 4.00-10.60 [facility] Comment on above: Order Comment: No: D o not add to previous draw Performed By: #### 2 5508, 71297, 56535, 88407, 76035, 80198 #### [facility] [address] [place] [address], [facility] POC GLUCOSE LABon 05-18-2022 Glucose [Mass/Vol] 92 mg/dL Normal 70-100 [facility] Comment on above: Performed By: #### 2 5508, 74280, 09992, 91519, 28348, 89286 #### [facility] [address] [place] [address], [place] Glucose [Mass/Vol] 90 mg/dL Normal 70-100 [facility] Comment on above: Performed By: #### 2 5508, 17189, 44515, 20537, 30001, 32010 #### [facility] [address] [place] [address], [facility] PROTHROMBIN TIMEon 09-02-202 2 INR Coag (PPP) [Relative time] 1.41 {INR} High 0.91-1.16 [facility] Comment on above: Order Comment: No: [...] CHEST 1995;108:[id number]. Performed By: #### 2 5508, 39834, 46455, 89139, 39231, 39027 #### [facility] [address] [place] [address], [facility] PT Coag (PPP) [Time] 17.2 s High 12.3-14.8 [facility] Comment on above: Order Comment: No: D o not add to previous draw Result Comment: ALL RESULTS MUST BE INTERPRETED WITH RESPECT TO BLOOD DRAWING ARTIFACT OR DILUTION ERROR OF ANTICOAGULANT AT THE TIME OF SAMPLING. Performed By: #### 2 5508, 75132, 50746, 75408, 52379, 35047 #### [facility] [address] [place] [address], [facility] UFH HEPARIN ASSAYon 05-18-20 22 UNFRACTIONATED HEPARIN >1.00 Critically high 0.30-0.70 [facility] Comment on above: Result Comment: Resu lt checked and called. Accurately read back by DREA SINGH RN ON 05/18/2022 AT 14:48 Rivaroxaban and Apixaban will interfere with the anti Xa assay used to monitor UFH and LMWH. Performed By: #### 2 5508, 85807, 25125, 62017, 26269, 90953 #### [facility] [address] UNFRACTIONATED HEPARIN >1.00 Critically high 0.30-0.70 [facility] Comment on above: Result Comment: Resu lt checked and called. Accurately read back by Pepe Connolly rn at 0447 Rivaroxaban and Apixaban will interfere with the anti Xa assay used to monitor UFH and LMWH. Performed By: #### 2 5508, 18610, 19462, 37115, 66523, 26191 #### [facility] [address] [facility]. [address] *BLOOD CULTUREon 05-17-2022 *BLOOD CULTURE Clinical Report: (D) Specimen: BLOOD CULTURE Collected: 05/17/2022 02:15 Status: Final Last Updated: 05/22/2022 07:50 CULT RES (Final) No Growth Day 5 Normal [facility] Comment on above: Performed By: #### 2 5508, 25170, 66031, 70888, 89777, 50421 #### [facility] [address] [place] [address], [facility] APTTon 05-17-2022 aPTT Coag (Bld) [Time] 147.6 s Critically high 25.0-35.0 [facility] Comment on above: Order Comment: No: D o not add to previous draw Result Comment: Resu lt checked and called. Accurately read back by drea singh rn on 05/17/2022 at 18:38 Performed By: #### 2 5508, 68469, 89520, 82628, 03912, 77910 #### [facility] [address] [place] [address], [place] aPTT Coag (Bld) [Time] 103.1 s Critically high 25.0-35.0 [facility] Comment on above: Order Comment: No: D o not add to previous draw Result Comment: Resu lt checked and called. Accurately read back by DREA SINGH @ 1000 Performed By: #### 2 5508, 95744, 08340, 33196, 06918, 19821 #### [facility] [address] [place] [address], [facility] aPTT Coag (Bld) [Time] 47.9 s High 25.0-35.0 [facility] Comment on above: Order Comment: No: [...] THIS PURPOSE. Performed By: #### 2 5508, 21998, 84240, 33936, 98116, 55135 #### [facility] [address] [place] [address], [facility] BNP (B-TYPE NATRIURETIC PEPT TWIN)on 05-17-2022 Natriuretic peptide B (Bld) [Mass/Vol] 584 pg/mL High 0-100 [facility] Comment on above: Order Comment: No: D o not add to previous draw Result Comment: Give n the appropriate clinical setting a BNP result of >100 pg/mL indicates congestive heart failure. Performed By: #### 2 5508, 38968, 01085, 34813, 71575, 91052 #### [facility] [address] [place] [address], [facility] CBC W/DIFFon 05-17-2022 ABS IMM GRANS 0.0 10*3/uL Normal 0.0-0.2 [facility] Comment on above: Order Comment: No: D o not add to previous draw Performed By: #### 2 5508, 14882, 57077, 98946, 23209, 87391 #### [facility] [address] [place] [id number], [facility] ABS NEUTROPHILS 3.6 10*3/uL Normal 1.6-7.6 [facility] Comment on above: Order Comment: No: D o not add to previous draw Performed By: #### 2 5508, 39312, 91662, 39728, 32565, 66337 #### [facility] [address] [place] [address], [facility] Basophils (Bld) [#/Vol] 0.0 10*3/uL Normal 0.0-0.2 [facility] Comment on above: Order Comment: No: D o not add to previous draw Performed By: #### 2 5508, 54488, 00747, 28484, 99437, 00741 #### [facility] [address] [place] [address], [facility] Basophils/100 WBC (Bld) 0.6 % Normal 0.0-1.0 [facility] Comment on above: Order Comment: No: D o not add to previous draw Performed By: #### 2 5508, 33383, 09314, 30599, 75312, 09927 #### [facility] [address] [place] [address], [facility] Eosinophils (Bld) [#/Vol] 0.0 10*3/uL Normal 0.0-0.5 [facility] Comment on above: Order Comment: No: D o not add to previous draw Performed By: #### 2 5508, 33148, 50849, 93745, 31948, 90059 #### [facility] [address] [place] [address], [facility] Eosinophils/100 WBC (Bld) 0.2 % Normal 0.0-6.0 [facility] Comment on above: Order Comment: No: D o not add to previous draw Performed By: #### 2 5508, 01095, 01542, 63297, 49107, 79180 #### [facility] [address] Erythrocyte distribution width (RBC) [Ratio] 13.9 % Normal 11.5-15.0 [facility] Comment on above: Order Comment: No: D o not add to previous draw Performed By: #### 2 5508, 46859, 96883, 50603, 09305, 40362 #### [facility] [address] Hematocrit (Bld) [Volume fraction] 40.6 % Normal 39.0-50.0 [facility] Comment on above: Order Comment: No: D o not add to previous draw Performed By: #### 2 5508, 87019, 76281, 91910, 70154, 18966 #### [facility] [address] Hemoglobin (Bld) [Mass/Vol] 13.7 g/dL Normal 13.0-17.0 [facility] Comment on above: Order Comment: No: D o not add to previous draw Performed By: #### 2 5508, 93927, 00184, 31288, 69383, 69775 #### [facility] [address] [facility] [place] [address], [facility] IMM PLATELET FRAC 6.9 % High 0.8-6.3 [facility] Comment on above: Order Comment: No: D o not add to previous draw Performed By: #### 2 5508, 41691, 15363, 62898, 79815, 76159 #### [facility] [address] [place] [address], [facility] IMMATURE GRANS 0.8 % Normal 0.0-1.0 [facility] Comment on above: Order Comment: No: D o not add to previous draw Performed By: #### 2 5508, 28162, 80921, 59970, 03772, 33266 #### [facility] [address] [place] [address], [facility] Lymphocytes (Bld) [#/Vol] 0.8 10*3/uL Low 1.2-4.0 [facility] Comment on above: Order Comment: No: D o not add to previous draw Performed By: #### 2 5508, 14388, 22599, 06212, 69124, 09001 #### [facility] [address] [place] [id number], [facility] Lymphocytes/100 WBC (Bld) 15.5 % Low 20.0-45.0 [facility] Comment on above: Order Comment: No: D o not add to previous draw Performed By: #### 2 5508, 48622, 93488, 31285, 71954, 39518 #### [facility] [address] [facility] [place] [address], [facility] MCH (RBC) [Entitic mass] 29.3 pg Normal 27.0-33.0 [facility] Comment on above: Order Comment: No: D o not add to previous draw Performed By: #### 2 5508, 62431, 38305, 23583, 30387, 80440 #### [facility] [address] [place] [address], [facility] MCHC (RBC) [Mass/Vol] 33.7 g/dL Normal 32.0-35.0 [facility] Comment on above: Order Comment: No: D o not add to previous draw Performed By: #### 2 5508, 35408, 14653, 16762, 42860, 09106 #### [facility] [address] [place] [address], [facility] MCV (RBC) [Entitic vol] 86.9 fL Normal 82.0-98.0 [facility] [facility] Comment on above: Order Comment: No: D o not add to previous draw Performed By: #### 2 5508, 83648, 53938, 27154, 43194, 98439 #### [facility] [address] [place] [address], [facility] Monocytes (Bld) [#/Vol] 0.5 10*3/uL Normal 0.1-1.0 [facility] Comment on above: Order Comment: No: D o not add to previous draw Performed By: #### 2 5508, 76182, 66420, 88772, 26889, 44696 #### [facility] [address] [place] [address], [facility] MONOS 9.7 % Normal 5.0-12.0 [facility] Comment on above: Order Comment: No: D o not add to previous draw Performed By: #### 2 5508, 92304, 11995, 42141, 75912, 60029 #### [facility] [address] [place] [address], [facility] Neutrophils/100 WBC (Bld) 73.2 % High 40.0-72.0 [facility] Comment on above: Order Comment: No: D o not add to previous draw Performed By: #### 2 5508, 66733, 31195, 53402, 35014, 77911 #### [facility] [address] [place] [address], [facility] Nucleated RBC/100 WBC (Bld) [Ratio] 0 % Normal 0-0 [facility] Comment on above: Order Comment: No: D o not add to previous draw Performed By: #### 2 5508, 06841, 54981, 77034, 45414, 48483 #### [facility] [address] [place] [id number], [facility] PLAT CNT 81 10*3/uL Low 150-400 [facility] Comment on above: Order Comment: No: D o not add to previous draw Performed By: #### 2 5508, 32188, 80594, 91591, 14842, 15789 #### [facility] [address] [place] [address], [facility] RBC (Bld) [#/Vol] 4.67 10*6/uL Normal 4.20-5.70 [facility] Comment on above: Order Comment: No: D o not add to previous draw Performed By: #### 2 5508, 81561, 15912, 38076, 08013, 84991 #### [facility] [address] [place] [address], [facility] WBC (Bld) [#/Vol] 4.96 10*3/uL Normal 4.00-10.60 [facility] Comment on above: Order Comment: No: D o not add to previous draw Performed By: #### 2 5508, 56273, 50850, 38070, 42856, 99921 #### [facility] [address] [place] [address], [facility] COMP METABOLIC PANELon 05-17 Albumin [Mass/Vol] 3.0 g/dL Low 3.5-5.7 [facility] Comment on above: Order Comment: No: D o not add to previous draw Performed By: #### 2 5508, 92463, 33353, 11970, 68353, 04705 #### [facility] [address] [place] [address], [facility] ALKALINE PHOSPH 48 IU/L Normal 34-104 [facility] Comment on above: Order Comment: No: D o not add to previous draw Performed By: #### 2 5508, 93397, 20627, 43843, 77937, 62716 #### [facility] [address] [place] [address], [place] ALT [Catalytic activity/Vol] 11 U/L Normal 7-52 [facility] Comment on above: Order Comment: No: D o not add to previous draw Performed By: #### 2 5508, 97966, 22024, 44952, 83243, 20166 #### [facility] [address] [place] [address], [place] AST [Catalytic activity/Vol] 19 U/L Normal 13-39 [facility] Comment on above: Order Comment: No: D o not add to previous draw Performed By: #### 2 5508, 58353, 00888, 88551, 36636, 06612 #### [facility] [address] [place] [address], [place] Bilirubin [Mass/Vol] 0.7 mg/dL Normal 0.3-1.0 [facility] Comment on above: Order Comment: No: D o not add to previous draw Performed By: #### 2 5508, 11016, 12755, 97493, 36364, 99692 #### [facility] [address] [place] [address], [place] Calcium [Mass/Vol] 8.5 mg/dL Low 8.6-10.3 [facility] Comment on above: Order Comment: No: D o not add to previous draw Performed By: #### 2 5508, 46727, 76318, 53056, 89709, 27412 #### [facility] [address] [place] [address], [place] Chloride [Moles/Vol] 104 mmol/L Normal 98-107 [facility] Comment on above: Order Comment: No: D o not add to previous draw Performed By: #### 2 5508, 97399, 59379, 93637, 62774, 88679 #### [facility] [address] [place] [address], [place] CO2 [Moles/Vol] 19 mmol/L Low 21-31 [facility] Comment on above: Order Comment: No: D o not add to previous draw Performed By: #### 2 5508, 18361, 67108, 08837, 73619, 32673 #### [facility] [address] [place] [address], [place] Creatinine [Mass/Vol] 1.71 mg/dL High 0.70-1.30 [facility] Comment on above: Order Comment: No: D o not add to previous draw Performed By: #### 2 5508, 19450, 87350, 94112, 21612, 87699 #### [facility] [address] [place] [address], [facility] EGFR 40 ml/min/1.73sq m Abnormal >60 [facility] Comment on above: Order Comment: No: D o not add to previous draw Result Comment: [facility]'s estimated glomerular filtration rate (eGFR) will [...] of individuals. Performed By: #### 2 5508, 91267, 48187, 85408, 10186, 62085 #### [facility] [address] [place] [address], [facility] Glucose [Mass/Vol] 96 mg/dL Normal 70-100 [facility] Comment on above: Order Comment: No: D o not add to previous draw Performed By: #### 2 5508, 28911, 08660, 85526, 74204, 09151 #### [facility] [address] [place] [address], [place] Potassium [Moles/Vol] 3.8 mmol/L Normal 3.5-5.1 [facility] Comment on above: Order Comment: No: D o not add to previous draw Performed By: #### 2 5508, 81500, 32954, 58421, 56370, 59717 #### [facility] [address] [place] [address], [place] Protein [Mass/Vol] 5.7 g/dL Low 6.0-8.3 [facility] Comment on above: Order Comment: No: D o not add to previous draw Performed By: #### 2 5508, 69543, 49878, 97758, 32647, 48160 #### [facility] [address] [place] [address], [facility] Sodium [Moles/Vol] 133 mmol/L Low 136-145 [facility] Comment on above: Order Comment: No: D o not add to previous draw Performed By: #### 2 5508, 67331, 90878, 92914, 14807, 26279 #### [facility] [address] [place] [address], [facility] Urea nitrogen [Mass/Vol] 57 mg/dL High 7-25 [facility] Comment on above: Order Comment: No: D o not add to previous draw Performed By: #### 2 5508, 92004, 95009, 70023, 32378, 84667 #### [facility] [address] [place] [address], [facility] CPKon 05-17-2022 CK [Catalytic activity/Vol] 44 U/L Normal 30-223 [facility] Comment on above: Order Comment: No: D o not add to previous draw Performed By: #### 2 5508, 77896, 94384, 32628, 88233, 16373 #### [facility] [address] [place] [address], [place] FREE T4on 05-17-2022 Free T4 [Mass/Vol] 0.78 ng/dL Normal 0.71-1.85 [facility] Comment on above: Performed By: #### 2 5508, 67215, 86346, 37141, 98612, 33862 #### [facility] [address] [place] [address], [place] HEMOGLOBIN A1Con 05-17-2022 Glucose [Moles/Vol] 117 mmol/L Normal [facility] Comment on above: Order Comment: No: D o not add to previous draw Performed By: #### 2 5508, 39222, 02098, 40904, 42275, 35276 #### [facility] [address] [place] [address], [facility] HbA1c (Bld) [Mass fraction] 5.7 % Normal 4.0-6.0 [facility] Comment on above: Order Comment: No: D o not add to previous draw Performed By: #### 2 5508, 29444, 15785, 09498, 87099, 81744 #### [facility] [address] [place] [address], [facility] LACTATE BLOODon 05-17-2022 Lactate [Moles/Vol] 1.0 mmol/L Normal .5-2.2 [facility] Comment on above: Order Comment: No: D o not add to previous draw Performed By: #### 2 5508, 17071, 84115, 14140, 74386, 55777 #### [facility] [address] [place] [address], [facility] LIPID PROFILEon 05-17-2022 Cholesterol [Mass/Vol] 141 mg/dL Normal 120-200 [facility] Comment on above: Order Comment: No: D o not add to previous draw Result Comment: CHOL ESTEROL REFERENCE RANGE: 20 YEARS AND OLDER CARDIOVASCULAR RISK Less than 200 mg/dl Low Risk 200 to 239 mg/dl Borderline Risk 240 mg/dl and greater High Risk Performed By: #### 2 5508, 22845, 77779, 51168, 94639, 76150 #### [facility] [address] [place] [address], [facility] Cholesterol in HDL [Mass/Vol] 22 mg/dL Low 23-92 [facility] Comment on above: Order Comment: No: D o not add to previous draw Result Comment: Slig ht variation in normal range could be due to gender and/or age. HDL CHOLESTEROL REFERENCE RANGE: 20 years and older Cardiovascular Risk > or =60 mg/dL Desirable 40 TO 59 mg/dL Low Risk <40 mg/dL High Risk Performed By: #### 2 5508, 19342, 76638, 68120, 10888, 30755 #### [facility] [address] [place] [address], [facility] Cholesterol in LDL [Mass/Vol] 95 mg/dL Normal 0-130 [facility] Comment on above: Order Comment: No: D o not add to previous draw Result Comment: LDL IS A CALCULATION LDL IS ONLY VALID IF THE TRIG IS LESS THAN 400. Performed By: #### 2 5508, 84965, 74749, 46822, 75751, 17156 #### [facility] [address] [place] [address], [facility] Cholesterol.total/C holesterol in HDL [Mass ratio] 6.4 {ratio} High .0-4.5 [facility] Comment on above: Order Comment: No: D o not add to previous draw Performed By: #### 2 5508, 47480, 18898, 52420, 18640, 38268 #### [facility] [address] [place] [address], [facility] NON-HDL CHOLESTEROL 119 mg/dL Normal [facility] Comment on above: Order Comment: No: D o not add to previous draw Performed By: #### 2 5508, 86765, 36530, 57044, 96175, 65137 #### [facility] [address] [place] [address], [place] Triglyceride [Mass/Vol] 122 mg/dL Normal 40-149 [facility] Comment on above: Order Comment: No: D o not add to previous draw Result Comment: TRIG LYCERIDE REFERENCE RANGE: 20 YEARS AND OLDER CARDIOVASCULAR RISK LESS THAN 150 mg/dl LOW RISK 150 TO 199 mg/dl BORDERLINE RISK 200 mg/dl AND GREATER HIGH RISK Performed By: #### 2 5508, 19248, 58204, 73571, 09116, 51644 #### [facility] [address] [place] [address], [place] VLDL CHOL 24 mg/dL Normal 0-40 [facility] Comment on above: Order Comment: No: D o not add to previous draw Performed By: #### 2 5508, 45154, 17128, 99640, 33965, 91149 #### [facility] [address] [facility] [place] [address], [facility] POC GLUCOSE LABon 05-17-2022 Glucose [Mass/Vol] 91 mg/dL Normal 70-100 [facility] Comment on above: Performed By: #### 2 5508, 96920, 69559, 36265, 76210, 12034 #### [facility] [address] [facility] [place] [address], [facility] PORTABLE CHEST 1 VIEWon PORTABLE CHEST 1 VIEW [facility] Department of Radiology [address] [place] [address] Patient Name: JOSÉ MIGUEL ROTH : 1940 Sex: M Age: Race: White Pt. Location: [address] [place] [address] Patient Status: I Ordered Date: 05/17/2022 2:00:00 [...] pleural effusion. Approved by:Lynnette Soriano05/17/2022 3:19 AM. I, Obdulio Coughlin,have reviewed the image(s) and agree with the findings in this report. Electronically signed: Obdulio Coughlin. Transcribed by: [email or web address], User Resident: LYNNETTE NORTH Electronically Signed by: OBDULIO COUGHLIN @ 05/17/2022 03:59 AM I personally read this/these film(s) with this resident Normal [facility] Comment on above: Order Comment: No: D o not add to previous draw PROTHROMBIN TIMEon INR Coag (PPP) [Relative time] 2.07 {INR} High 0.91-1.16 [facility] Comment on above: Order Comment: No: [...] CHEST 1995;[id number]. Performed By: #### 2 5508, 99120, 99988, 96181, 77928, 32963 #### [facility] [address] [place] [address], [facility] PT Coag (PPP) [Time] 22.9 s High 12.3-14.8 [facility] Comment on above: Order Comment: No: D o not add to previous draw Result Comment: ALL RESULTS MUST BE INTERPRETED WITH RESPECT TO BLOOD DRAWING ARTIFACT OR DILUTION ERROR OF ANTICOAGULANT AT THE TIME OF SAMPLING. Performed By: #### 2 5508, 30369, 43813, 21933, 27394, 61980 #### [facility] [address] [place] [address], [facility] TROPONIN-Ion 05-17-2022 Troponin I.cardiac [Mass/Vol] 0.25 ng/mL Critically high 0.00-0.04 [facility] Comment on above: Order Comment: No: D o not add to previous draw Result Comment: M-PA EVIOUS CRITICAL RESULT REFERENCE RANGES: 0.00 - 0.04 ng/ml NORMAL 0.05 - 0.50 ng/ml INDETERMINATE > 0.50 ng/ml CONSISTENT WITH AN M.I. Performed By: #### 2 5508, 76154, 35775, 35629, 65009, 58030 #### [facility] [address] [place] [address], [facility] Troponin I.cardiac [Mass/Vol] 0.31 ng/mL Critically high 0.00-0.04 [facility] Comment on above: Order Comment: No: D o not add to previous draw Result Comment: M-TR OPONIN INITIAL CRITICAL HIGH; RESPUN AND RETESTED M-CRITICAL RESULT(S) REVIEWED, CALLED TO AND READ BACK BY ARELIS CLEMENTS AT 0345 REFERENCE RANGES: 0.00 - 0.04 ng/ml NORMAL 0.05 - 0.50 ng/ml INDETERMINATE > 0.50 ng/ml CONSISTENT WITH AN M.I. Performed By: #### 2 5508, 61332, 42260, 33638, 66886, 04411 #### [facility] [address] TSH3 WITH REFLEX FT4on 05-17 TSH 3RD GENERATION 0.19 uIU/mL Low 0.34-5.60 [facility] Comment on above: Order Comment: No: D o not add to previous draw Performed By: #### 2 5508, 85915, 43188, 34596, 81549, 93774 #### [facility] [address] [place] [address], [facility] UFH HEPARIN ASSAYon 05-17-20 22 UNFRACTIONATED HEPARIN >1.00 Critically high 0.30-0.70 [facility] Comment on above: Result Comment: Resu lt checked and called. Accurately read back by drea singh rn on 05/17/2022 at 18:38 Rivaroxaban and Apixaban will interfere with the anti Xa assay used to monitor UFH and LMWH. Performed By: #### 2 5508, 17678, 99211, 20015, 25408, 93354 #### [facility] [address] [place] [address], [facility] UNFRACTIONATED HEPARIN >1.00 Critically high 0.30-0.70 [facility] Comment on above: Result Comment: Resu lt checked and called. Accurately read back by DREA SINGH @ 1000 Rivaroxaban and Apixaban will interfere with the anti Xa assay used to monitor UFH and LMWH. Performed By: #### 2 5508, 28268, 10267, 27055, 67786, 96958 #### [facility] [address] [place] [address], [facility] UNFRACTIONATED HEPARIN >1.00 Critically high 0.30-0.70 [facility] Comment on above: Result Comment: Resu lt checked and called. Accurately read back by Arelis Tushek Arnold RN at 0251 PT on Elquis UFH = 2.79 for pharmacy use Rivaroxaban and Apixaban will interfere with the anti Xa assay used to monitor UFH and LMWH. Performed By: #### 2 5508, 19027, 60364, 37712, 44425, 13459 #### [facility] [address] [place] [address], [facility] URINALYSIS REFLEXon 05-17-20 22 Appearance (U) CLEAR Normal CLEAR [facility] Comment on above: Order Comment: No: D o not add to previous draw Performed By: #### 2 5508, 59534, 96487, 56013, 06571, 31573 #### [facility] [address] [place] [address], [facility] Bilirubin Ql (U) Negative Normal NEGATIVE [facility] Comment on above: Order Comment: No: D o not add to previous draw Performed By: #### 2 5508, 73459, 16064, 29730, 23443, 78351 #### [facility] [address] [place] [id number], [facility] Color (U) YELLOW Normal YELLOW [facility] Comment on above: Order Comment: No: D o not add to previous draw Performed By: #### 2 5508, 66654, 86189, 22526, 12913, 71041 #### [facility] [address] [facility] [place] [address], [facility] EPIS NONE SEEN Normal FEW,OCC,NON E SEEN [facility] Comment on above: Order Comment: No: D o not add to previous draw Performed By: #### 2 5508, 92770, 25024, 38066, 57848, 24677 #### [facility] [address] [place] [id number], [facility] Glucose Ql (U) Negative Normal NEGATIVE [facility] Comment on above: Order Comment: No: D o not add to previous draw Performed By: #### 2 5508, 24971, 05428, 26842, 73940, 26930 #### [facility] [address] [place] [address], [facility] Hemoglobin Ql (U) TRACE Abnormal NEGATIVE [facility] Comment on above: Order Comment: No: D o not add to previous draw Performed By: #### 2 5508, 28496, 77870, 17291, 50150, 07023 #### [facility] [address] [place] [address], [facility] KETONE Negative Normal NEGATIVE [facility] Comment on above: Order Comment: No: D o not add to previous draw Performed By: #### 2 5508, 84943, 21494, 97224, 16723, 97240 #### [facility] [address] [place] [address], [facility] LEUK MARQUITA Negative Normal NEGATIVE [facility] Comment on above: Order Comment: No: D o not add to previous draw Performed By: #### 2 5508, 73251, 25564, 99023, 82362, 12404 #### [facility] [address] [place] [address], [facility] MUCUS THREADS OCC Abnormal NONE SEEN [facility] Comment on above: Order Comment: No: D o not add to previous draw Performed By: #### 2 5508, 85748, 85487, 24327, 22398, 79810 #### [facility] [address] [place] [address], [facility] Nitrite Ql (U) Negative Normal NEGATIVE [facility] Comment on above: Order Comment: No: D o not add to previous draw Performed By: #### 2 5508, 65011, 17460, 14071, 57839, 40078 #### [facility] [address] [place] [address], [facility] pH (U) 5.5 [pH] Normal 5.0-8.0 [facility] Comment on above: Order Comment: No: D o not add to previous draw Performed By: #### 2 5508, 15315, 17372, 62862, 46233, 42310 #### [facility] [address] [facility] [place] [address], [facility] Protein Ql (U) 30 Abnormal NEGATIVE [facility] Comment on above: Order Comment: No: D o not add to previous draw Performed By: #### 2 5508, 04331, 86369, 64381, 81192, 24777 #### [facility] [address] [facility] RBC 3-5 Abnormal NONE SEEN [facility] Comment on above: Order Comment: No: D o not add to previous draw Performed By: #### 2 5508, 75930, 31966, 89807, 27160, 73869 #### [facility] [address] [facility]. [address] SPEC GRAV 1.015 Normal 1.015-1.020 [facility] Comment on above: Order Comment: No: D o not add to previous draw Performed By: #### 2 5508, 00186, 57068, 37156, 80492, 59340 #### [facility] [address] [facility] [place] [place] [address], [facility] WBC UA 0-2 Abnormal NONE SEEN [facility] Comment on above: Order Comment: No: D o not add to previous draw Performed By: #### 2 5508, 59571, 93775, 30410, 44290, 03952 #### [facility] [address] [facility]. [address] BNPon 05-16-2022 Natriuretic peptide B (Bld) [Mass/Vol] 74751.0 pg/mL Critically high <=1,800.0 [facility] Comment on above: Performed By: #### B MP, BNP #### [facility] [address] [place] [address] [address] Silva Burnett CBC AUTO DIFFon 05-16-2022 BASO # 0.0 103/ul Normal 0.0-0.1 [facility] Comment on above: Performed By: #### V ITAD #### [facility] [address] [place] [address] Dr. Silva Burnett Basophils/100 WBC (Bld) 0.6 % Normal 0.2-2.0 [facility] Comment on above: Performed By: #### V ITAD #### [facility] [address] [place] [address] Dr. Silva Burnett EO # 0.0 103/ul Normal 0.0-0.7 [facility] Comment on above: Performed By: #### V ITAD #### [facility] [address] [place] [address] Dr. Silva Burnett Eosinophils/100 WBC (Bld) 0.1 % Critically low 0.9-7.0 [facility] Comment on above: Performed By: #### V ITAD #### [facility] [address] [place] [address] Dr. Silva Burnett Erythrocyte distribution width (RBC) [Ratio] 13.7 % Normal 11.0-15.0 [facility] Comment on above: Performed By: #### V ITAD #### [facility] [address] [place] [address] Dr. Silva Burnett Hematocrit (Bld) [Volume fraction] 45.5 % Normal 42.0-54.0 [facility] Comment on above: Performed By: #### V ITAD #### [facility] [address] [place] [address] Dr. Silva Burnett Hemoglobin (Bld) [Mass/Vol] 14.9 g/dL Normal 14.0-18.0 [facility] Comment on above: Performed By: #### V ITAD #### [facility] [address] [place] [address] Dr. Silva Burnett IG # 0.04 10e3/ul Critically high 0.00-0.03 [facility] Comment on above: Performed By: #### V ITAD #### [facility] [address] [place] [address] Dr. Silva Burnett IG % 0.6 % Critically high 0.0-0.5 [facility] Comment on above: Performed By: #### V ITAD #### [facility] [address] [place] [address] Dr. Silva Burnett LYMPH # 0.8 103/ul Critically low 1.2-3.8 [facility] Comment on above: Performed By: #### V ITAD #### [facility] [address] [place] [address] Dr. Silva Burnett Lymphocytes/100 WBC (Bld) 11.9 % Critically low 20.5-60.0 [facility] Comment on above: Performed By: #### V ITAD #### [facility] [address] [place] [address] Dr. Silva Burnett MANUAL DIFF REQ NO Normal [facility] Comment on above: Performed By: #### V ITAD #### [facility] [address] [place] [address] Dr. Silva Burnett MCH (RBC) [Entitic mass] 29.0 pg Normal 25.9-34.0 [facility] Comment on above: Performed By: #### V ITAD #### [facility] [address] [place] [address] Dr. Silva Burnett MCHC (RBC) [Mass/Vol] 32.7 g/dL Normal 29.9-35.2 [facility] Comment on above: Performed By: #### V ITAD #### [facility] [address] [place] [address] Dr. Silva Burnett MCV (RBC) [Entitic vol] 88.7 fL Normal 80.0-94.0 [facility] Comment on above: Performed By: #### V ITAD #### [facility] [address] [place] [address] Dr. Silva Burnett MONO # 0.4 103/ul Normal 0.3-0.8 [facility] Comment on above: Performed By: #### V ITAD #### [facility] [address] [place] [address] Dr. Silva Burnett Monocytes/100 WBC (Bld) 6.5 % Normal 1.7-12.0 [facility] Comment on above: Performed By: #### V ITAD #### [facility] [address] [place] [address] Dr. Silva Burnett NEUT # 5.4 103/ul Normal 1.4-6.5 [facility] Comment on above: Performed By: #### V ITAD #### [facility] [address] [place] [address] Dr. Silva Burnett Neutrophils/100 WBC (Bld) 80.3 % Critically high 43.0-75.0 [facility] Comment on above: Performed By: #### V ITAD #### [facility] [address] [place] [address] Dr. Silva Burnett Platelet mean volume (Bld) [Entitic vol] 11.5 fL Normal 9.5-13.5 [facility] Comment on above: Performed By: #### V ITAD #### [facility] [address] [place] [address] Dr. Silva Burnett PLT 111 103/ul Critically low 150-450 [facility] Comment on above: Performed By: #### V ITAD #### [facility] [address] [place] [address] Dr. Silva Burnett RBC 5.13 106/ul Normal 4.70-6.10 [facility] Comment on above: Performed By: #### V ITAD #### [facility] [address] [place], [place] [id number] Dr. Silva Burnett WBC 6.7 103/ul Normal 4.0-11.0 [facility] Comment on above: Performed By: #### V ITAD #### [facility] [address] [place], [place] [id number] Dr. Silva Burnett CT HEAD WO CONon [...] LINDA JUNIOR Date: 2022-05-16 17:37 Normal [facility] CULTURE URINEon 05-16-2022 CULTURE URINE Culture Observations : NO GROWTH. Normal [facility] Comment on above: Performed By: #### V ITAD #### [facility] [address] [place] [address] Dr. Silva Burnett Covid-19 PCR (CVDTB)on 04-18 SARS-CoV-2 (COVID-19) RNA BRANT+probe Ql (Unsp spec) Not detected Normal NOT DETECTED [facility] Comment on above: Result Comment: When diagnostic [...] for this test is supported by the Environmental Professional of Health and Human Service's declaration that [...] used). Performed By: #### C VDTBH #### [facility] [address] [place] [address] Dr. Silva Burnett ER URINE PROFILEon 2 Bilirubin Ql (U) Negative Normal NEGATIVE [facility] Comment on above: Performed By: #### B MP, BNP #### [facility] [address] [place] [address] Dr. Silva Burnett Clarity (U) CLEAR Normal CLEAR [facility] Comment on above: Performed By: #### B MP, BNP #### [facility] [address] [place] [address] Dr. Silva Burnett Color (U) DK. YELLOW Normal YELLOW [facility] Comment on above: Performed By: #### B MP, BNP #### [facility] [address] [place] [address] Dr. Silva Burnett ERUAHLynda A micrscopic examina tion will be performed if indicated. Normal [facility] Comment on above: Performed By: #### B MP, BNP #### [facility] [address] [place] [address] Dr. Silva Burnett Glucose Ql (U) Negative Normal NEGATIVE [facility] Comment on above: Performed By: #### B MP, BNP #### [facility] [address] [place] [address] Dr. Silva Burnett Hemoglobin Ql (U) TRACE-INTACT Abnormal NEGATIVE [facility] Comment on above: Performed By: #### B MP, BNP #### [facility] [address] [place] [address] Dr. Silva Burnett Ketones Ql (U) TRACE Abnormal NEGATIVE [facility] Comment on above: Performed By: #### B MP, BNP #### [facility] [address] [place] [address] Dr. Silva Burnett LEUKOCYTES Negative Normal NEGATIVE [facility] Comment on above: Performed By: #### B MP, BNP #### [facility] [address] [place] [address] Dr. Silva Burnett Nitrite Ql (U) Negative Normal NEGATIVE [facility] Comment on above: Performed By: #### B MP, BNP #### [facility] [address] [place] [address] Dr. Silva Burnett pH (U) 5.5 [pH] Normal 5-9 [facility] Comment on above: Performed By: #### B MP, BNP #### [facility] [address] [place] [address] Dr. Silva Burnett Protein (U) [Mass/Vol] 30 mg/dL Abnormal NEGATIVE/ TRACE [facility] Comment on above: Performed By: #### B MP, BNP #### [facility] [address] [place] [address] Dr. Silva Burnett SPEC GRAVITY 1.025 Normal 1.005-<=1.[address] [place] [address] Comment on above: Performed By: #### B MP, BNP #### [facility] [address] [place] [address] Dr. Silva Burnett UR MICRO IND INDICATED Normal [facility] Comment on above: Performed By: #### B MP, BNP #### [facility] [address] [place] [address] Dr. Silva Burnett Urobilinogen Qn (U) 0.2 {Zaina'U}/dL Normal 0.2 - 1. 0 [facility] Comment on above: Performed By: #### B MP, BNP #### [facility] [address] [place] [address] Dr. Silva Burnett PROF 14(COMP METB)on 022 Albumin [Mass/Vol] 2.8 g/dL Critically low 3.4-5.0 [facility] Comment on above: Performed By: #### B MP, BNP #### [facility] [address] [place] [address] Dr. Silva Burnett Albumin/Globulin [Mass ratio] 0.7 {ratio} Normal [facility] Comment on above: Performed By: #### B MP, BNP #### [facility] [address] [place] [address] Dr. Silva Burnett ALP [Catalytic activity/Vol] 69 U/L Normal 46-116 [facility] Comment on above: Performed By: #### B MP, BNP #### [facility] [address] [address] [address] Silva Burnett ALT [Catalytic activity/Vol] 16 U/L Normal 16-63 [facility] Comment on above: Performed By: #### B MP, BNP #### [facility] [address] [address] [address] Silva Burnett Anion gap [Moles/Vol] 15.2 mmol/L Normal [facility] Comment on above: Performed By: #### B MP, BNP #### [facility] [address] [address] [address] Silva Burnett AST [Catalytic activity/Vol] 30 U/L Normal 15-37 [facility] Comment on above: Performed By: #### B MP, BNP #### [facility] [address] [place] [address] Dr. Silva Burnett Bilirubin [Mass/Vol] 0.9 mg/dL Normal 0.2-1.0 [facility] Comment on above: Performed By: #### B MP, BNP #### [facility] [address] [place] [address] Dr. Silva Burnett Calcium [Mass/Vol] 9.0 mg/dL Normal 8.5-10.1 [facility] Comment on above: Performed By: #### B MP, BNP #### [facility] [address] [address] [address] Silva Burnett Chloride [Moles/Vol] 98 mmol/L Normal 98-107 [facility] Comment on above: Performed By: #### B MP, BNP #### [facility] [address] [address] [address] Silva Burnett CO2 [Moles/Vol] 22.9 mmol/L Normal 21.0-32.0 [facility] Comment on above: Performed By: #### B MP, BNP #### [facility] [address] [address] [address] Silva Burnett Creatinine [Mass/Vol] 2.20 mg/dL Critically high 0.70-1.30 [facility] Comment on above: Performed By: #### B MP, BNP #### [facility] [address] [address] [address] Silva Burnett EGFR-AF PUERTO RICAN 35 mL/min/1.73m2 Critically low >=60 [facility] Comment on above: Performed By: #### B MP, BNP #### [facility] [address] [address] [address] Silva Burnett EGFR-NON AF PUERTO RICAN 29 mL/min/1.73m2 Critically low >=60 [facility] Comment on above: Performed By: #### B MP, BNP #### [facility] [address] [address] [address] Silva Burnett Globulin (S) [Mass/Vol] 4.0 g/dL [facility] Comment on above: Performed By: #### B MP, BNP #### [facility] [address] [address] [address] Silva Burnett Glucose [Mass/Vol] 148 mg/dL Critically high 74-106 [facility] Comment on above: Performed By: #### B MP, BNP #### [facility] [address] [address] [address] Silva Burnett Potassium [Moles/Vol] 4.1 mmol/L Normal 3.5-5.1 [facility] Comment on above: Performed By: #### B MP, BNP #### [facility] [address] [address] [address] Silva Burnett Protein [Mass/Vol] 6.8 g/dL Normal 6.4-8.2 [facility] Comment on above: Performed By: #### B MP, BNP #### [facility] [address] [address] [address] Silva Burnett Sodium [Moles/Vol] 132 mmol/L Critically low 136-145 [facility] Comment on above: Performed By: #### B MP, BNP #### [facility] [address] [address] [address] Silva Burnett Urea nitrogen [Mass/Vol] 60.0 mg/dL Critically high 7.0-18.0 [facility] Comment on above: Performed By: #### B MP, BNP #### [facility] [address] [place] [address] Dr. Silav Burnett Urea nitrogen/Creatinine [Mass ratio] 27.3 mg/mg Normal [facility] Comment on above: Performed By: #### B MP, BNP #### [facility] [address] [place] [address] Dr. Silva Burnett PROTIMEon 05-16-2022 INR Coag (PPP) [Relative time] 1.43 {INR} Normal [facility] Comment on above: Performed By: #### V ITAD #### [facility] [address] [place] [address] Dr. Silva Burnett INR GUIDELINES SEE BELOW Normal [facility] Comment on above: Result Comment: EDMOND RED INR: 2.0 - 3.0 CONDITIONS NOT LISTED BELOW 2.5 - 3.5 FOR PROSTHETIC HEART VALVE REPLACEMENT 2.5 - 3.5 RECURRENT THROMBOSIS Performed By: #### V ITAD #### [facility] [address] [place] [address] Dr. Silva Burnett PT Coag (PPP) [Time] 15.1 s Critically high 9.0-11.6 [facility] Comment on above: Performed By: #### V ITAD #### [facility] [address] [place] [address] Dr. Silva Burnett PTTon 05-16-2022 aPTT Coag (Bld) [Time] 35.6 s Normal 22.3-36.2 [facility] Comment on above: Performed By: #### V ITAD #### [facility] [address] [place] [address] Dr. Silva Burnett TROPONIN, HIGH SENSITIVITYon 05-16-2022 HSTROP 895.9 pg/mL Critically high 4.0-76.1 [facility] Comment on above: Result Comment: CUT- OFF POINTS HAVE BEEN ESTABLISHED BASED ON THE FOURTH UNIVERSAL DEFINITIONS OF MYOCARDIAL INFARCTION. THE UPPER REFERENCE LIMIT (URL) OF TROPONIN, DEFINED THE 99TH PERCENTILE OF cTnI DISTRIBUTION IN A REFERENCE POPULATION, HAS BEEN CONFIRMED THE DECISION THRESHOLD FOR ME DIAGNOSIS. Performed By: #### B MP, BNP #### [facility] [address] [place] [address] Dr. Silva Burnett HSTROP 1000.5 pg/mL Critically high 4.0-76.1 [facility] Comment on above: Result Comment: CUT- OFF POINTS HAVE BEEN ESTABLISHED BASED ON THE FOURTH UNIVERSAL DEFINITIONS OF MYOCARDIAL INFARCTION. THE UPPER REFERENCE LIMIT (URL) OF TROPONIN, DEFINED THE 99TH PERCENTILE OF cTnI DISTRIBUTION IN A REFERENCE POPULATION, HAS BEEN CONFIRMED THE DECISION THRESHOLD FOR ME DIAGNOSIS. Performed By: #### B MP, BNP #### [facility] [address] [place] [address] Dr. Silva Burnett URINE MICROSCOPIC ONLYon BACTERIA TRACE Abnormal NONE SEEN [facility] Comment on above: Performed By: #### B MP, BNP #### [facility] [address] [place] [address] Dr. Silva Burnett Bacteria identified Cx Nom (U) INDICATED Normal [facility] Comment on above: Performed By: #### B MP, BNP #### [facility] [address] [place] [address] Dr. Silva Burnett CAST SEEN Abnormal NONE SEEN [facility] Comment on above: Performed By: #### B MP, BNP #### [facility] [address] [place] [address] Dr. Silva Burnett Crystals LM Nom (Urine sed) NONE SEEN Normal NONE SEEN [facility] Comment on above: Performed By: #### B MP, BNP #### [facility] [address] [place] [address] Dr. Silva Burnett Epithelial cells LM Ql (Urine sed) FEW Abnormal NONE SEEN /RARE [facility] Comment on above: Performed By: #### B MP, BNP #### [facility] [address] [place] [address] Dr. Silva Burnett HYALINE CAST FEW Normal [facility] Comment on above: Performed By: #### B MP, BNP #### [facility] [address] [place] [address] Dr. Silva Burnett MUCOUS SMALL Abnormal NONE SEEN [facility] Comment on above: Performed By: #### B MP, BNP #### [facility] [address] [address] [address] Silva Burnett RBC 0-2 Normal 0-2 [facility] Comment on above: Performed By: #### B MP, BNP #### [facility] [address] [address] [address] Silva Burnett WBC 5-10 Abnormal NONE SEEN [facility] Comment on above: Performed By: #### B MP, BNP #### [facility] [address] [address] [address] Silva Burnett XR CHEST 1 Von [...] AYANA FERNANDEZ Date: 2022-05-16 15:53 Normal [facility] BNPon 05-14-2022 NT PRO BNP >94489.0 Critically high <=1,800.0 [facility] Comment on above: Performed By: #### B MP, BNP #### [facility] [address] [place] [address] Dr. Silva Burnett CBC AUTO DIFFon 05-14-2022 BASO # 0.0 103/ul Normal 0.0-0.1 [facility] Comment on above: Performed By: #### B MP, BNP #### [facility] [address] [place] [address] Dr. Silva Burnett Basophils/100 WBC (Bld) 0.3 % Normal 0.2-2.0 [facility] Comment on above: Performed By: #### B MP, BNP #### [facility] [address] [place] [address] Dr. Silva Burnett EO # 0.0 103/ul Normal 0.0-0.7 [facility] Comment on above: Performed By: #### B MP, BNP #### [facility] [address] [place] [address] Dr. Silva Burnett Eosinophils/100 WBC (Bld) 0.0 % Critically low 0.9-7.0 [facility] Comment on above: Performed By: #### B MP, BNP #### [facility] [address] [place] [address] Dr. Silva Burnett Erythrocyte distribution width (RBC) [Ratio] 13.6 % Normal 11.0-15.0 [facility] Comment on above: Performed By: #### B MP, BNP #### [facility] [address] [place] [address] Dr. Silva Burnett Hematocrit (Bld) [Volume fraction] 41.8 % Critically low 42.0-54.0 [facility] Comment on above: Performed By: #### B MP, BNP #### [facility] [address] [place] [address] Dr. Silva Burnett Hemoglobin (Bld) [Mass/Vol] 13.6 g/dL Critically low 14.0-18.0 [facility] Comment on above: Performed By: #### B MP, BNP #### [facility] [address] [place] [address] Dr. Silva Burnett IG # 0.04 10e3/ul Critically high 0.00-0.03 [facility] Comment on above: Performed By: #### B MP, BNP #### [facility] [address] [place] [address] Dr. Silva Burnett IG % 0.5 % Normal 0.0-0.5 [facility] Comment on above: Performed By: #### B MP, BNP #### [facility] [address] [place] [address] Dr. Silva Burnett LYMPH # 0.5 103/ul Critically low 1.2-3.8 [facility] Comment on above: Performed By: #### B MP, BNP #### [facility] [address] [place] [address] Dr. Silva Burnett Lymphocytes/100 WBC (Bld) 7.1 % Critically low 20.5-60.0 [facility] Comment on above: Performed By: #### B MP, BNP #### [facility] [address] [place] [address] Dr. Silva Burnett MANUAL DIFF REQ NO Normal [facility] Comment on above: Performed By: #### B MP, BNP #### [facility] [address] [place] [address] Dr. Silva Burnett MCH (RBC) [Entitic mass] 29.4 pg Normal 25.9-34.0 [facility] Comment on above: Performed By: #### B MP, BNP #### [facility] [address] [place] [address] Dr. Silva Burnett MCHC (RBC) [Mass/Vol] 32.5 g/dL Normal 29.9-35.2 [facility] Comment on above: Performed By: #### B MP, BNP #### [facility] [address] [place] [address] Dr. Silva Burnett MCV (RBC) [Entitic vol] 90.3 fL Normal 80.0-94.0 [facility] Comment on above: Performed By: #### B MP, BNP #### [facility] [address] [place] [address] Dr. Silva Burnett MONO # 0.4 103/ul Normal 0.3-0.8 [facility] Comment on above: Performed By: #### B MP, BNP #### [facility] [address] [place] [address] Dr. Silva Burnett Monocytes/100 WBC (Bld) 5.4 % Normal 1.7-12.0 [facility] Comment on above: Performed By: #### B MP, BNP #### [facility] [address] [place] [address] Dr. Silva Burnett NEUT # 6.6 103/ul Critically high 1.4-6.5 [facility] Comment on above: Performed By: #### B MP, BNP #### [facility] [address] [address] [address] Silva Burnett Neutrophils/100 WBC (Bld) 86.7 % Critically high 43.0-75.0 [facility] Comment on above: Performed By: #### B MP, BNP #### [facility] [address] [address] [address] Silva Burnett Platelet mean volume (Bld) [Entitic vol] 10.4 fL Normal 9.5-13.5 [facility] Comment on above: Performed By: #### B MP, BNP #### [facility] [address] [address] [address] Silva Burnett PLT 110 103/ul Critically low 150-450 [facility] Comment on above: Performed By: #### B MP, BNP #### [facility] [address] [place] [address] Dr. Silva Burnett RBC 4.63 106/ul Critically low 4.70-6.10 [facility] Comment on above: Performed By: #### B MP, BNP #### [facility] [address] [address] [address] Silva Burnett WBC 7.6 103/ul Normal 4.0-11.0 [facility] Comment on above: Performed By: #### B MP, BNP #### [facility] [address] [address] [address] Silva Burnett CULTURE URINEon 05-14-2022 CULTURE URINE Culture Observations : NO GROWTH. Normal [facility] Comment on above: Performed By: #### V ITAD #### [facility] [address] [address] [address] Silva Burnett IRONon 05-14-2022 Iron [Mass/Vol] 18.0 ug/dL Critically low 65.0-175.0 [facility] Comment on above: Performed By: #### I CUBA #### [facility] [address] [address] [address] Silva Burnett PROF 14(COMP METB)on 022 Albumin [Mass/Vol] 3.4 g/dL Normal 3.4-5.0 [facility] Comment on above: Performed By: #### B MP, BNP #### [facility] [address] [place] [address] Dr. Silva Burnett Albumin/Globulin [Mass ratio] 0.8 {ratio} Normal [facility] Comment on above: Performed By: #### B MP, BNP #### [facility] [address] [address] [address] Silva Burnett ALP [Catalytic activity/Vol] 77 U/L Normal 46-116 [facility] Comment on above: Performed By: #### B MP, BNP #### [facility] [address] [place] [address] Dr. Silva Burnett ALT [Catalytic activity/Vol] 16 U/L Normal 16-63 [facility] Comment on above: Performed By: #### B MP, BNP #### [facility] [address] [place] [address] Dr. Silva Burnett Anion gap [Moles/Vol] 13.3 mmol/L Normal [facility] Comment on above: Performed By: #### B MP, BNP #### [facility] [address] [place] [address] Dr. Silva Burnett AST [Catalytic activity/Vol] 23 U/L Normal 15-37 [facility] Comment on above: Performed By: #### B MP, BNP #### [facility] [address] [place] [address] Dr. Silva Burnett Bilirubin [Mass/Vol] 0.9 mg/dL Normal 0.2-1.0 [facility] Comment on above: Performed By: #### B MP, BNP #### [facility] [address] [place] [address] Dr. Silva Burnett Calcium [Mass/Vol] 9.3 mg/dL Normal 8.5-10.1 [facility] Comment on above: Performed By: #### B MP, BNP #### [facility] [address] [place] [address] Dr. Silva Burnett Chloride [Moles/Vol] 98 mmol/L Normal 98-107 [facility] Comment on above: Performed By: #### B MP, BNP #### [facility] [address] [place] [address] Dr. Silva Burnett CO2 [Moles/Vol] 26.0 mmol/L Normal 21.0-32.0 [facility] Comment on above: Performed By: #### B MP, BNP #### [facility] [address] [place] [address] Dr. Silva Burnett Creatinine [Mass/Vol] 1.84 mg/dL Critically high 0.70-1.30 [facility] Comment on above: Performed By: #### B MP, BNP #### [facility] [address] [place] [address] Dr. Silva Burnett EGFR-AF PUERTO RICAN 43 mL/min/1.73m2 Critically low >=60 [facility] Comment on above: Performed By: #### B MP, BNP #### [facility] [address] [place] [address] Dr. Silva Burnett EGFR-NON AF PUERTO RICAN 36 mL/min/1.73m2 Critically low >=60 [facility] Comment on above: Performed By: #### B MP, BNP #### [facility] [address] [place] [address] Dr. Silva Burnett Globulin (S) [Mass/Vol] 4.1 g/dL Normal [facility] Comment on above: Performed By: #### B MP, BNP #### [facility] [address] [place] [address] Dr. Silva Burnett Glucose [Mass/Vol] 132 mg/dL Critically high 74-106 T [facility] Comment on above: Performed By: #### B MP, BNP #### [facility] [address] [place] [address] Dr. Silva Burnett Potassium [Moles/Vol] 4.3 mmol/L Normal 3.5-5.1 [facility] Comment on above: Performed By: #### B MP, BNP #### [facility] [address] [place] [address] Dr. Sivla Burnett Protein [Mass/Vol] 7.5 g/dL Normal 6.4-8.2 [facility] Comment on above: Performed By: #### B MP, BNP #### [facility] [address] [place] [address] Dr. Silva Burnett Sodium [Moles/Vol] 133 mmol/L Critically low 136-145 Th [facility] Comment on above: Performed By: #### B MP, BNP #### [facility] [address] [place] [address] Dr. Silva Burnett Urea nitrogen [Mass/Vol] 38.0 mg/dL Critically high 7.0-18.0 [facility] Comment on above: Performed By: #### B MP, BNP #### [facility] [address] [place] [address] Dr. Silva Burnett Urea nitrogen/Creatinine [Mass ratio] 20.7 mg/mg Normal [facility] Comment on above: Performed By: #### B MP, BNP #### [facility] [address] [place] [address] Dr. Silva Burnett UA RANDOM W/MICROSCOPICon BACTERIA NONE SEEN Normal NONE SEEN [facility] Comment on above: Performed By: #### U AMIC #### [facility] [address] [place] [address] Dr. Silva Burnett Bilirubin Ql (U) Negative Normal NEGATIVE [facility] Comment on above: Performed By: #### U AMIC #### [facility] [address] [place] [address] Dr. Silva Burnett CAST NONE SEEN Normal NONE SEEN [facility] Comment on above: Performed By: #### U AMIC #### [facility] [address] [place] [address] Dr. Silva Burnett Clarity (U) CLEAR Normal CLEAR [facility] Comment on above: Performed By: #### U AMIC #### [facility] [address] [place] [address] Dr. Silva Burnett Color (U) YELLOW Normal YELLOW [facility] Comment on above: Performed By: #### U AMIC #### [facility] [address] [address] [address] Silva Burnett Crystals LM Nom (Urine sed) NONE SEEN Normal NONE SEEN [facility] Comment on above: Performed By: #### U AMIC #### [facility] [address] [place] [address] Dr. Silva Burnett Epithelial cells LM Ql (Urine sed) NONE SEEN Normal NONE SEEN /RARE [facility] Comment on above: Performed By: #### U AMIC #### [facility] [address] [address] [address] Silva Burnett Glucose Ql (U) Negative Normal NEGATIVE [facility] Comment on above: Performed By: #### U AMIC #### [facility] [address] [place] [address] Dr. Silva Burnett Hemoglobin Ql (U) MODERATE Abnormal NEGATIVE [facility] Comment on above: Performed By: #### U AMIC #### [facility] [address] [place] [address] Dr. Silva Burnett Ketones Ql (U) Negative Normal NEGATIVE [facility] Comment on above: Performed By: #### U AMIC #### [facility] [address] [place] [address] Dr. Silva Burnett LEUKOCYTES Negative Normal NEGATIVE [facility] Comment on above: Performed By: #### U AMIC #### [facility] [address] [place] [address] Dr. Silva Burnett MUCOUS NONE SEEN Normal NONE SEEN [facility] Comment on above: Performed By: #### U AMIC #### [facility] [address] [place] [address] Dr. Silva Burnett Nitrite Ql (U) Negative Normal NEGATIVE [facility] Comment on above: Performed By: #### U AMIC #### [facility] [address] [place] [address] Dr. Silva Burnett pH (U) 6.0 [pH] Normal 5-9 [facility] Comment on above: Performed By: #### U AMIC #### [facility] [address] [place] [address] Dr. Silva Burnett RBC 0-2 Normal 0-2 [facility] Comment on above: Performed By: #### U AMIC #### [facility] [address] [address] [address] Silva Burnett SPEC GRAVITY 1.025 Normal 1.005-<=1.0 25 [facility] Comment on above: Performed By: #### U AMIC #### [facility] [address] [address] [address] Silva Burnett UA PROTEIN 30 mg/dl Abnormal NEGATIVE/ TRACE [facility] Comment on above: Performed By: #### U AMIC #### [facility] [address] [address] [address] Silva Burnett Urobilinogen Qn (U) 1.0 {Zaina'U}/dL Normal 0.2 - 1. 0 [facility] Comment on above: Performed By: #### U AMIC #### [facility] [address] [place] [address] Dr. Silva Burnett WBC NONE SEEN Normal NONE SEEN [facility] Comment on above: Performed By: #### U AMIC #### [facility] [address] [place] [address] Dr. Silva Burnett ICD REMOTE CHECKon 2 AV Delay Adaptive Paced Minimum (ms) 200 ms [facility] AV Delay Adaptive Sensed Minimum (ms) 170 ms [facility] Bj RA Pacing Amplitude (volts) 2 V [facility] Bj RA Pacing Polarity BI [facility] Bj RA Pacing Pulse Width (ms) 0.5 ms [facility] Bj RA Sensing Amplitude (mvolts) 0.25 mV [facility] Bj RA Sensing Polarity BI [facility] Bj RV Pacing Amplitude (volts) 2 V [facility] Bj RV Pacing Polarity BI [facility] Bj RV Pacing Pulse Width (ms) 0.5 ms [facility] Bj RV Sensing Amplitude (mvolts) 0.3 mV [facility] Bj RV Sensing Polarity BI [facility] Detection Configuration (Vent) 2 - Zone [facility] FastVT_Detection Interval 250 ms [facility] FastVT_Therapy Configuration 1 ATP(s) + 8 Shock(s) [facility] ICD FastVT DetectionStatus ENABLED [facility] ICD-AMS EPISODES 170 {beats}/min [facility] ICD-ATP Episodes (Vent) 0 [facility] ICD-ATRIALFIBRILLAT ION 21 [facility] ICD-ATRIALTACHYCARD IA 21 [facility] ICD-ATRIALTACHYCARD IA 6 [facility] ICD-Device Mfg BSX [facility] ICD-Fast Ventricular Tachycardia 6 [facility] ICD-LEADIMPEDANCEAT RIAL 709 ohm [facility] ICD-Percent Pacing (Atrial) 5 % [facility] ICD-Percent Pacing (Vent) 1 % [facility] ICD-Shocks Aborted (Vent) 0 [facility] [id number] D 0 [facility] ICD-SHOCKSABORTED 0 [facility] ICD-SHOCKSDELIVERED VENTRICULAR 0 [facility] ICD-Ventricular Fibrillation 0 [facility] Lead Impedance (RV) 416 ohm [facility] Lead Impedance High Voltage 47 ohm [facility] Lead1 Mfg BSX [facility] Lead2 Mfg BSX [facility] Location RV [facility] Location RA [facility] Lower Rate (bpm) 50 {beats}/min [facility] Max Sensor Rate (bpm) 130 {beats}/min [facility] MDT_PROG_TACHY_ZONE _DETECTIONS_STATUS ENABLED [facility] Model D142 INOGEN [facility] Model [address] [place] 4-Front [facility] Model 7741 Ingevity MRI [facility] Pacing Mode DDDR [facility] Serial Number [id number] [facility] Serial Number [id number] [facility] Serial Number [id number] [facility] Test Charge Energy 23 J [facility] Test Charge Time 10.1 s [facility] Therapy Status (Vent) Enabled [facility] Thresh RA Capture Amplitude (volts) 0.6 V [facility] Thresh RA Capture Duration (ms) 0.5 ms [facility] Thresh RV Capture Amplitude (VOLTS) 0.4 V [facility] Thresh RV Capture Duration (MS) 0.5 ms [facility] Tracking Rate (bpm) 130 {beats}/min [facility] VF Zone Detection Interval 250 ms [facility] VF Zone Therapy Configuration 1 ATP(s) + 8 Shock(s) [facility] No Panel Informationon 05-08 BLANK _ [facility] ICD-ATRIALTACHYCARD IA 0 [facility] ICD-Fast Ventricular Tachycardia 0 [facility] Implant Date 03/24/2019 [facility] ICD REMOTE CHECKon 05-24-202 2 AV Delay Adaptive Paced Minimum (ms) 200 ms [facility] AV Delay Adaptive Sensed Minimum (ms) 170 ms [facility] Bj RA Pacing Amplitude (volts) 2 V [facility] Bj RA Pacing Polarity BI [facility] Bj RA Pacing Pulse Width (ms) 0.5 ms [facility] Bj RA Sensing Amplitude (mvolts) 0.25 mV [facility] Bj RA Sensing Polarity BI [facility] Bj RV Pacing Amplitude (volts) 2 V [facility] Bj RV Pacing Polarity BI [facility] Bj RV Pacing Pulse Width (ms) 0.5 ms [facility] Bj RV Sensing Amplitude (mvolts) 0.3 mV [facility] Bj RV Sensing Polarity BI [facility] Detection Configuration (Vent) 2 - Zone [facility] FastVT_Detection Interval 250 ms [facility] FastVT_Therapy Configuration 1 ATP(s) + 8 Shock(s) [facility] ICD FastVT DetectionStatus ENABLED [facility] ICD-AMS EPISODES 170 {beats}/min [facility] ICD-ATP Episodes (Vent) 0 [facility] ICD-ATRIALFIBRILLAT ION 19 [facility] ICD-ATRIALTACHYCARD IA 19 [facility] ICD-ATRIALTACHYCARD IA 4 [facility] ICD-Device Mfg BSX [facility] ICD-Fast Ventricular Tachycardia 4 [facility] ICD-LEADIMPEDANCEAT RIAL 734 ohm [facility] ICD-Percent Pacing (Atrial) 6 % [facility] ICD-Percent Pacing (Vent) 1 % [facility] ICD-Shocks Aborted (Vent) 0 [facility] [id number] D 0 [facility] ICD-SHOCKSABORTED 0 [facility] ICD-SHOCKSDELIVERED VENTRICULAR 0 [facility] ICD-Ventricular Fibrillation 0 [facility] Lead Impedance (RV) 427 ohm [facility] Lead Impedance High Voltage 48 ohm [facility] Lead1 Mfg BSX [facility] Lead2 Mfg BSX [facility] Location RV [facility] Location RA [facility] Lower Rate (bpm) 50 {beats}/min [facility] Max Sensor Rate (bpm) 130 {beats}/min [facility] MDT_PROG_TACHY_ZONE _DETECTIONS_STATUS ENABLED [facility] Model D142 INOGEN [facility] Model [address] [place] 4-Front [facility] Model 7741 Ingevity MRI [facility] Pacing Mode DDDR [facility] Serial Number [id number] [facility] Serial Number [id number] [facility] Serial Number [id number] [facility] Test Charge Energy 23 J [facility] Test Charge Time [facility] Therapy Status (Vent) Enabled [facility] Thresh RA Capture Amplitude (volts) 0.6 V [facility] Thresh RA Capture Duration (ms) 0.5 ms [facility] Thresh RV Capture Amplitude (VOLTS) 0.4 V [facility] Thresh RV Capture Duration (MS) 0.5 ms [facility] Tracking Rate (bpm) 130 {beats}/min [facility] VF Zone Detection Interval 250 ms [facility] VF Zone Therapy Configuration 1 ATP(s) + 8 Shock(s) [facility] No Panel Informationon 02-06 BLANK _ [facility] ICD-ATRIALTACHYCARD IA 0 [facility] ICD-Fast Ventricular Tachycardia 0 [facility] Implant Date 03/24/2019 [facility] C [place] 12-23-2018 Wound Culture Microbiology [...] Locations R1: This test was performed at: [facility], [address] [place] [address], [id number] , [facility] Comment on above: Performed By: #### [id number] #### [facility] [address] [place] [address] Coding Summary.on 12-23-2018 Coding Summary. CODING DATE: 019 [facility] STATUS: Home (Routine DC) PAYOR: Medicare [...] Tim CphT Date Saved: 12/23/2018 01:25 pm [facility] Vital Signs Date Time Vital Sign Value Performing Clinician Karel newell 04-26-2023 15:08-0400 Body height 182.9 cm Andreas Del Cid MD Work Phone: [facility] 04-26-2023 15:08-0400 Body weight 83.92 kg Andreas Del Cid MD Work Phone: [facility] 04-26-2023 15:08-0400 Diastolic blood pressure 62 mm[Hg] Andreas Del Cid MD Work Phone: [facility] 04-26-2023 15:08-0400 Heart rate 73 /min Andreas Del Cid MD Work Phone: [facility] 04-26-2023 15:08-0400 Respiratory rate 12 /min Andreas Del Cid MD Work Phone: [facility] 04-26-2023 15:08-0400 SaO2% (BldA) [Mass fraction] 98 % Andreas Del Cid MD Work Phone: [facility] 04-26-2023 15:08-0400 Systolic blood pressure 116 mm[Hg] Andreas Del Cid MD Work Phone: [facility] 10-25-2022 15:44-0500 Body height 182.9 cm Andreas Del Cid MD Work Phone: [facility] 10-25-2022 15:44-0500 Body weight 83.92 kg Andreas Del Cid MD Work Phone: [facility] 10-25-2022 15:44-0500 Diastolic blood pressure 66 mm[Hg] Andreas Del Cid MD Work Phone: [facility] 10-25-2022 15:44-0500 Heart rate 74 /min Andreas Del Cid MD Work Phone: [facility] 10-25-2022 15:44-0500 SaO2% (BldA) [Mass fraction] 98 % Andreas Del Cid MD Work Phone: [facility] 10-25-2022 15:44-0500 Systolic blood pressure 116 mm[Hg] Andreas Del Cid MD Work Phone: [facility] 10-02-2022 13:10-0500 Body temperature 96.69 [degF] ARACELI Kim MD Work Phone: [facility] 10-02-2022 13:10-0500 Body weight 86.18 kg ARACELI Kim MD Work Phone: [facility] 10-02-2022 13:10-0500 Diastolic blood pressure 71 mm[Hg] ARACELI Kim MD Work Phone: [facility] 10-02-2022 13:10-0500 Heart rate 66 /min ARACELI Kim MD Work Phone: [facility] 10-02-2022 13:10-0500 Respiratory rate 18 /min ARACELI Kim MD Work Phone: [facility] 10-02-2022 13:10-0500 SaO2% (BldA) [Mass fraction] 98 % ARACELI Kim MD Work Phone: [facility] 10-02-2022 13:10-0500 Systolic blood pressure 113 mm[Hg] ARACELI Kim MD Work Phone: [facility] 09-03-2022 11:35-0500 Body height 182.9 cm John Jefferson MD Work Phone: [facility] 09-03-2022 11:35-0500 Body temperature 97.9 [degF] John Jefferson MD Work Phone: [facility] 09-03-2022 11:35-0500 Body weight 84.01 kg John Jefferson MD Work Phone: [facility] 09-03-2022 11:35-0500 Diastolic blood pressure 78 mm[Hg] John Jefferson MD Work Phone: [facility] 09-03-2022 11:35-0500 Heart rate 82 /min John Jefferson MD Work Phone: [facility] 09-03-2022 11:35-0500 Respiratory rate 18 /min John Jefferson MD Work Phone: [facility] 09-03-2022 11:35-0500 SaO2% (BldA) [Mass fraction] 98 % John Jefferson MD Work Phone: [facility] 09-03-2022 11:35-0500 Systolic blood pressure 133 mm[Hg] John Jefferson MD Work Phone: [facility] 06-06-2022 14:32-0400 Body height 182.9 cm Andreas Del Cid MD Work Phone: [facility] 06-06-2022 14:32-0400 Body weight 76.66 kg Andreas Del Cid MD Work Phone: [facility] 06-06-2022 14:32-0400 Diastolic blood pressure 63 mm[Hg] Andreas Del Cid MD Work Phone: [facility] 06-06-2022 14:32-0400 Heart rate 71 /min Andreas Del Cid MD Work Phone: [facility] 06-06-2022 14:32-0400 SaO2% (BldA) [Mass fraction] 97 % Andreas Del Cid MD Work Phone: [facility] 06-06-2022 14:32-0400 Systolic blood pressure 101 mm[Hg] Andreas Del Cid MD Work Phone: [facility] 12-11-2021 13:58-0400 Body temperature 97.11 [degF] ARACELI Kim MD Work Phone: [facility] 12-11-2021 13:58-0400 Body weight 82.1 kg ARACELI Kim MD Work Phone: [facility] 12-11-2021 13:58-0400 Diastolic blood pressure 78 mm[Hg] ARACELI Kim MD Work Phone: [facility] 12-11-2021 13:58-0400 Heart rate 80 /min ARACELI Kim MD Work Phone: [facility] 12-11-2021 13:58-0400 Respiratory rate 18 /min ARACELI Kim MD Work Phone: [facility] 12-11-2021 13:58-0400 SaO2% (BldA) [Mass fraction] 99 % ARACELI Kim MD Work Phone: [facility] 12-11-2021 13:58-0400 Systolic blood pressure 130 mm[Hg] ARACELI Kim MD Work Phone: [facility] Encounters Encounter Date Encounter Type Care Provider Facility Start: 09-24-2023 End: 09-24-2023 ambulatory [facility] Facility:[facility] Start: 08-27-2023 Telephone encounter Virgil Pacheco nd, MD Work Phone: Cardiology Comment on above: Appointment (Left a message with the patient regarding the cancellation of 10/22/2023 with . 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, unspecified CKD stage, unspecified whether fci insulin use (HCC) (Primary Dx); PVD (peripheral vascular disease) (HCC); Atherosclerotic heart disease of [place]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) Start: 04-26-2023 End: 04-27-2023 ambulatory FRANCISCA Paulina Herman Facility:[facility] Start: 04-02-2023 End: 04-02-2023 ambulatory [facility] Facility:[facility] Start: 03-26-2023 End: 03-26-2023 ambulatory [facility] Facility:[facility] Start: 02-21-2023 Follow-up encounter Rubén Carney ba, MD Work Phone: [facility] Start: 02-21-2023 ICD Remote F/U Rubén Howell Work Phone: [facility] Department Start: 02-08-2023 End: 02-09-[address] DOCTOR CARRIZALES Facility: Start: 12-03-2022 Orders Only Andreas Del Cid MD Work Phone: Cardiology Start: 11-29-2022 Patient encounter procedure John Jefferson MD Work Phone: Vascular Surg Dept Start: 11-29-2022 Telephone encounter John carrillo MD Work Phone: Vascular Surg Dept Comment on above: Surgery Cancelled Start: 11-06-2022 Follow-up encounter Rubén Carney ba, MD Work Phone: [facility] Start: 11-06-2022 ICD Remote F/U Rubén Howell Work Phone: [facility] Department Start: 10-31-2022 Telephone encounter John carrillo MD Work Phone: Vascular Surg Dept Comment on above: Appointment Start: 10-25-2022 End: 10-26-2022 ambulatory [facility] Facility:[facility] Start: 10-25-2022 End: 10-25-2022 Patient encounter procedure Andreas Del Cid MD Work Phone: Cardiology Comment on above: 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 (Primary Dx); Heart failure, acute systolic (HCC) Start: 10-25-2022 End: 10-25-2022 ambulatory ANDREAS DEL CID Facility:[facility] Start: 10-25-2022 End: 10-25-2022 Subsequent hospital visit by physician [facility] Comment on above: Chronic systolic hea rt failure (HCC) [I50.22] Start: 10-02-2022 End: 10-02-2022 ambulatory FRANCISCA THOMPSON Facility:[facility] Start: 10-02-2022 End: 10-02-2022 Patient encounter procedure Yung Kim MD Work Phone: Radiation Oncology Comment on above: Malignant neoplasm o f prostate (HCC) (Primary Dx) Start: 09-18-2022 End: 12-31-[address] [facility] Facility: Start: 09-12-2022 End: 09-13-[address] MALAIKA KIM Facility:[facility] Start: 09-07-2022 Telephone encounter Andreas poe MD Work Phone: Cardiology Comment on above: Nm Pet Request Start: 09-06-2022 Orders Only Andreas Del Cid MD Work Phone: Cardiology Comment on above: Chronic systolic hea rt failure (HCC) (Primary Dx); Coronary artery disease involving [place] coronary artery of [place] heart without angina pectoris Start: 09-03-2022 End: 09-03-2022 Patient encounter procedure John Jefferson MD Work Phone: Vascular Surg Dept Comment on above: 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 Facility: Start: 08-07-2022 Follow-up encounter Rubén Carney ba, MD Work Phone: [facility] Start: 08-07-2022 ICD Remote F/U Rubén Howell Work Phone: [facility] Department Start: 08-03-2022 Orders Only John Howell Work Phone: Vascular Surg Dept Comment on above: Bilateral carotid ar annalee stenosis (Primary Dx) Start: 08-01-2022 Telephone encounter Francisca Thompson MD Work Phone: [place] Comment on above: Appointment Start: 07-30-2022 Telephone encounter Francisca Thompson MD Work Phone: [facility] Comment on above: Appointment Start: 07-25-2022 Telephone encounter Andreas poe MD Work Phone: Cardiology Comment on above: Received Outside Med ical Records Start: 07-23-2022 End: 07-24-[address] [facility] Facility:[facility] Start: 07-23-2022 End: 07-23-2022 ambulatory [facility] Start: 07-18-2022 End: 07-19-[address] FRANCISCA THOMPSON . Facility:[facility] Start: 06-27-2022 End: 06-28-[address] FRANCISCA THOMPSON . Facility:[facility] Start: 06-27-2022 End: 06-28-[address] FRANCISCA THOMPSON . Facility:[facility] Start: 06-18-2022 Encounter for preprocedural laboratory examination [facility] Start: 06-14-2022 End: 06-15-2022 Encounter for preprocedural [...] failure (HCC) Start: 05-28-2022 End: 05-28-2022 ambulatory MALAIKA [facility] Start: 05-17-2022 End: 05-24-2022 Evaluation and management of inpatient SHARON HOOKS Facility:[facility] Start: 05-16-2022 End: 05-17-2022 ambulatory SHARON HOOKS . Facility:[facility] Start: 05-14-2022 End: 05-15-[address] FRANCISCA THOMPSON . Facility:[facility] Start: 05-08-2022 Follow-up encounter Rubén Carney ba, MD Work Phone: [facility] Start: 05-08-2022 ICD Remote F/U Rubén Howell Work Phone: [facility] Department Start: 04-26-2022 End: 04-26-2022 ambulatory Yung Kim MD Work Phone: Radiation Oncology Comment on above: Malignant neoplasm o f prostate (HCC) (Primary Dx) Start: 04-26-2022 End: 04-26-2022 Telemedicine consultation with patient Yung Kim MD Work Phone: [facility] Start: 02-06-2022 Follow-up encounter Rubén Carney ba, MD Work Phone: [facility] Start: 02-06-2022 ICD Remote F/U Rubén Gallardo D Work Phone: [facility] Department Start: 01-15-2022 Orders Only Lilia Barone RN Dominick tology/Oncology Comment on above: Unspecified hypothyr oidism (Primary Dx); Hypercholesterolemia; Abnormal finding of blood chemistry, unspecified Start: 01-03-2022 Patient encounter procedure Yung Kim MD Work Phone: [facility] Start: 01-03-2022 Radiation Oncology Note Yung Kim MD Work Phone: Radiation Oncology Comment on above: Completion Note Start: 12-18-2021 Patient encounter procedure Yung Kim MD Work Phone: [facility] Start: 12-18-2021 Radiation Oncology Note G Navin Kim MD Work Phone: Radiation Oncology Comment on above: Completion Note Start: 12-11-2021 End: 12-11-2021 Patient encounter procedure G Denilson Kim MD Work Phone: Radiation Oncology Comment on above: Malignant neoplasm o f prostate (HCC) (Primary Dx) Start: 04-30-2012 Patient encounter status ARACELI phillips MD Work Phone: [facility] Work Phone: Procedures Date Procedure Procedure Detail Performing Clinician Start: 02-21-2023 ICD REMOTE CHECK Rubén Bucio MD Work Phone: Start: 11-06-2022 ICD REMOTE CHECK Rubén Bucio MD Work Phone: Start: 10-25-2022 Myocrd img pet prfuj pairer odds std rst&strs cncrnt ct Andreas Del Cid MD Work Phone: Start: 10-25-2022 Myocrd img pet prfuj w/metab 2rtracer cncrnt ct Andreas Del Cid MD Work Phone: Start: 10-25-2022 End: 10-25-2022 Gluc bld gluc mntr dev cleared fda spec home use [facility] Start: 09-12-2022 End: 09-12-2022 PSA screening [facility] Provider Comment on above: Performed By: #### B MP, BNP #### [facility] [address] [place] [address] Dr. Silva Burnett Start: 08-07-2022 ICD REMOTE [...] Detail Author Start: 06-13-2030 Urine microalbumin profile [facility] Start: 10-25-2025 DIABETES SCREEN DIABETES SCREEN [facility] Start: 06-06-2025 DIABETES SCREEN DIABETES SCREEN [facility] Start: 04-19-2025 DIABETES SCREEN DIABETES SCREEN [facility] Start: 01-15-2025 DIABETES SCREEN DIABETES SCREEN [facility] Start: 11-09-2024 DIABETES SCREEN DIABETES SCREEN [facility] Start: 05-17-2023 Influenza vaccination [facility] Start: 04-01-2023 End: 06-01-2023 Prostate specific Ag [Mass/volume] in Serum or Plasma PSA/PROSTSPECAG DIAG Lab Routine Malignant neoplasm of prostate (HCC) Expected: 04/01/2023 (Approximate), Expires: 06/01/2023 [facility] Work Phone: Comment on above: Expected: 04/01/2023 (Approximate), Expires: 06/01/2023 Start: 01-15-2023 Hepatitis B surface antibody level LDL CHOLESTEROL [facility] Start: 10-27-2022 End: 12-27-2022 Prostate specific Ag [Mass/volume] in Serum or Plasma PSA/PROSTSPECAG DIAG Lab Routine Malignant neoplasm of prostate (HCC) Expected: 10/27/2022, Expires: 12/27/2022 [facility] Work Phone: Comment on above: Expected: 10/27/2022 , Expires: 12/27/2022 Start: 09-16-2022 ADVANCE DIRECTIVE DISCUSSION ADVANCE DIRECTIVE DISCUSSION [facility] Start: 09-16-2022 DEPRESSION ASSESSMENT DEPRESSION ASS ESSMENT [facility] Start: 07-18-2022 Hemoglobin A1c measurement HbA1C [facility] Start: 07-18-2022 Hemoglobin A1c/Hemoglobin.total in Blood HBA1C [facility] Start: 06-06-2022 End: 08-06-2022 Comprehensive metabolic 2000 panel - Serum or Plasma [facility] Work Phone: Comment on above: Expected: 06/06/2022 , Expires: 08/06/2022 Start: 06-06-2022 End: 08-06-2022 Natriuretic peptide.B prohormone N-Terminal [Mass/volume] in Serum or Plasma [facility] Work Phone: Comment on above: Expected: 06/06/2022 , Expires: 08/06/2022 Start: 05-17-2022 Influenza vaccination [facility] Start: 01-15-2022 End: 03-17-2022 Hemoglobin A1c/Hemoglobin.total in Blood [facility] Work Phone: Comment on above: Expected: 01/15/2022 , Expires: 03/17/2022 Start: 01-15-2022 End: 03-17-2022 Insulin [Units/volume] in Serum or Plasma [facility] Work Phone: Comment on above: Expected: 01/15/2022 , Expires: 03/17/2022 Start: 01-15-2022 End: 03-17-2022 IRON + TIBC [facility] Work Phone: Comment on above: Expected: 01/15/2022 , Expires: 03/17/2022 Start: 01-15-2022 End: 03-17-2022 LIPID PANEL BASIC [facility] Work Phone: Comment on above: Expected: 01/15/2022 , Expires: 03/17/2022 Start: 01-15-2022 End: 03-17-2022 T3 UPTAKE [facility] Work Phone: Comment on above: Expected: 01/15/2022 , Expires: 03/17/2022 Start: 01-15-2022 End: 03-17-2022 T4 FREE/FREE THYROX [facility] Work Phone: Comment on above: Expected: 01/15/2022 , Expires: 03/17/2022 Start: 01-15-2022 End: 03-17-2022 T4/FTI/T4U [facility] Work Phone: Comment on above: Expected: 01/15/2022 , Expires: 03/17/2022 Start: 01-15-2022 End: 03-17-2022 Thyrotropin [Units/volume] in Serum or Plasma [facility] Work Phone: Comment on above: Expected: 01/15/2022 , Expires: 03/17/2022 Start: 01-07-2022 End: 03-09-2022 Prostate specific Ag [Mass/volume] in Serum or Plasma PSA/PROSTSPECAG DIAG Lab Routine Malignant neoplasm of prostate (HCC) Expected: 01/07/2022, Expires: 03/09/2022 [facility] Work Phone: Comment on above: Expected: 01/07/2022 , Expires: 03/09/2022 Start: 09-16-2021 ADVANCE DIRECTIVE DISCUSSION ADVANCE DIRECTIVE DISCUSSION [facility] Start: 09-16-2021 DEPRESSION ASSESSMENT DEPRESSION ASS ESSMENT [facility] Start: 06-19-2020 Hepatitis B surface antibody level LDL CHOLESTEROL [facility] Start: 2007 PNEUMOVAX AGE 65 AND OVER WITH 5YR LOOKBACK (#1) PNEUMOVAX AGE 65 AND OVER WITH 5YR LOOKBACK (#1) [facility] Start: 2002 RSV Vaccine (1 - 1-d ose 60+ series) RSV Vaccine (1 - 1-dose 60+ series) [facility] Start: 02-20-1992 SHINGRIX VACCINE (1 of 2) ZAYAS GRIX VACCINE (1 of 2) [facility] Start: 1961 SHINGRIX VACCINE (1 of 2) ZAYAS GRIX VACCINE (1 of 2) [facility] Start: 02-20-1960 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 ANCA DISEASE VISIT ANNUAL PCP TEAM CHRONIC DISEASE VISIT [facility] Start: 1954 Adult depression scr eening assessment DEPRESSION SCREENING [facility] Start: 02-20-1952 3 comp foot exam completed DIABETIC FOOT EXAM [facility] Start: 02-20-1952 Diabetic foot examination Diabetic F oot Exam [facility] Start: 02-20-1952 Glaucoma screening Dilated Retinal E xam [facility] Start: 02-20-1952 Hepatitis B screening URINE ALBUMIN:CREATININE RATIO [facility] Start: 02-20-1952 Hepatitis C antibody , confirmatory test DILATED RETINAL EXAM [facility] Start: 02-20-1948 Pneumococcal Vaccine : 65+ (1 - PCV) Pneumococcal Vaccine: 65+ (1 - PCV) [facility] Start: 02-20-1948 PNEUMOCOCCAL: 65+ (1 - PCV) PNEUMOCOCCAL: 65+ (1 - PCV) [facility] Start: 1947 COVID-19 VACCINE (#1) COVID-19 VACCI NE (#1) [facility] Start: 1947 COVID-19 VACCINE (1) COVID-19 VACCIN E (1) [facility] Start: 1942 COVID-19 VACCINE (#1) COVID-19 VACCI NE (#1) [facility] End: 06-06-2023 ECG COMPLETE ECG COMPLETE ECG Routine Chronic systolic heart failure (HCC) 1 Occurrences starting 06/06/2022 until 06/06/2023 [facility] Work Phone: Comment on above: 1 Occurrences starti ng 06/06/2022 until 06/06/2023 End: 06-06-2023 Echocardiography ECHO Cardiology Routine Chronic systolic heart failure (HCC) 1 Occurrences starting 06/06/2022 until 06/06/2023 [facility] Work Phone: Comment on above: 1 Occurrences starti ng 06/06/2022 until 06/06/2023 End: 10-06-2023 NM PET/CT CARDIAC PERF REST/STRESS NM PET/CT CARDIAC PERF REST/STRESS Radiology Routine Chronic systolic heart failure (HCC) Coronary artery disease involving [place] coronary artery of [place] heart without angina pectoris 1 Occurrences starting 09/06/2022 until 10/06/2023 [facility] Work Phone: Comment on above: 1 Occurrences starti ng 09/06/2022 until 10/06/2023 End: 10-06-2023 NM PET/CT CARDIAC VIABILITY NM PET/CT CARDIAC VIABILITY Radiology Routine Chronic systolic heart failure (HCC) Coronary artery disease involving [place] coronary artery of [place] heart without angina pectoris 1 Occurrences starting 09/06/2022 until 10/06/2023 [facility] Work Phone: Comment on above: 1 Occurrences starti ng 09/06/2022 until 10/06/2023 End: 08-03-2023 US CAROTID ARTERIES [facility] US CAROTID ARTERIES [facility] Vascular Lab Routine Bilateral carotid artery stenosis 1 Occurrences starting 08/03/2022 until 08/03/2023 [facility] Work Phone: Comment on above: 1 Occurrences starti ng 08/03/2022 until 08/03/2023 [facility] Immunizations Immunization Date Immunization Notes Care Provider Fa cility 06-13-2020 diphtheria, tetanus toxoids and pertussis vaccine ARACELI Kim MD Work Phone: [facility] Payers Date Payer Category Payer Unknown MMO MMO MEDICARE SUPPLEMENT [id number] 2018-Present [phone] [address] [place] [address] Indemnity [id number] 2018 Unknown MMO MMO MEDICARE SUPPLEMENT [id number] 2018-Present [phone] [address] [place] [address] Indemnity [id number] 2007 Medicare MEDICARE MEDICAR E A AND B [id number] 2007-Present [phone] [place] [address] Medicare [id number] 2007 Medicare MEDICARE MEDICAR E A AND B [id number] 2007-Present [phone] [place] [address] Medicare [id number] 1959 Medicare [id number] 1959 Self-pay [id number] 1959 Unknown [id number] 1942 Unknown [id number] 1942 Unknown [id number] 1942 Unknown [id number] 1942 Unknown [id number] 1942 Unknown [id number] 1942 Unknown [id number] 1942 Unknown [id number] 1942 Unknown [id number] 1942 Unknown [id number] 1942 Unknown [id number] 1942 Unknown [id number] 1942 Unknown [id number] 1942 Unknown [id number] 1942 Unknown [id number] [id number] 1942 Unknown [id number] [id number] 1942 Unknown [id number] 1942 Unknown [id number] Social History Date Type Detail Facility Start: 04-28-2012 End: 04-26-2023 Tobacco smoking status NHIS Ex-smoker [facility] Work Phone: End: 04-28-1982 History of tobacco use Current smoker [facility] Work Phone: End: 04-28-1982 History of tobacco use Cigarette Smoker [facility] Work Phone: End: 04-28-1982 History of tobacco use Pipe Smoker [facility] Work Phone: Start: 04-28-2012 End: 04-02-2023 Cigarettes smoked current (pack per day) - Reported 1 [facility] Start: 04-28-2012 End: 04-26-2023 Tobacco use and exposure Smokeless tobacco non-user [facility] Work Phone: Start: 12-04-2021 End: 04-26-2023 Alcohol intake Current drinker of alcohol (finding) [facility] Start: 04-15-2020 History SDOH Alcohol Frequency 2 [facility] Start: 04-15-2020 History SDOH Alcohol Std Drinks 1 [facility] Start: 03-13-2019 History SDOH Alcohol Comment occassional [facility] Start: 1940 Sex Assigned At Male C [facility] Start: 12-01-2021 End: 06-06-2022 Exposure to SARS-CoV-2 (event) Not sure [facility] Start: 10-25-2022 Alcohol Comment rarely [facility] Start: 04-15-2020 End: 04-02-2023 Alcohol Use Disorder Identification Test - Consumption [AUDIT-C] [facility] How often to you hav e a drink containing alcohol? Monthly or less [facility] How many standard dr inks containing alcohol do you have on a typical day? 1 or 2 [facility] Frequency of Binge Drinking Not on file [facility] Start: 02-22-2019 Gender identity Identifies as male gender (finding) [facility] Start: 02-22-2019 Sexual orientation Heterosexual (prince ding) [facility] NEGATED: Highlighted rowStart: CARMENF History of tobacco use Passive smoker [facility] Medical Equipment Procedure Code Equipment Code Equipment Origin al Text Equipment Identifier Dates [place] Cv 6x1in Thk1.65mm Ptfe - [id number] Start: 05-01-2012 Comment on above: Description: used fo r plrdgetts. Patch Cv 8x.8cm Tapr Vsgrd Bov - [id number] Start: 07-01-2012 Comment on above: Description: [...] 10/29/2023 with . documented in this encounter [facility] 08-22-2023 Miscellaneous Notes Call from pharmacy requesting refill. Requested Prescriptions Pending Prescriptions Disp Refills lisinopril (ZESTRIL) 5 mg tablet 90 tablet 3 Sig: Take 1 tablet by mouth once daily. Patient last seen 06-12-23 - Seen Alison Pollard documented in this encounter [facility] 06-12-2023 Note HNO ID: [id number] Author: Alison Weller APRN.DRIVER/GUIDE Service: ? Author Type: Nurse Practitioner Type: Progress Notes Filed: 06/12/2023 9:01 AM Note Text: Heart, Vascular AND Thoracic [place] Department of Cardiovascular Medicine VIRTUAL VIDEO VISIT ESTABLISHED OUTPATIENT VISIT SERVICE DATE: 06/12/2023 Patient: José Miguel Roth Jr. SERVICE TIME: 6:08 AM : 1940 This is a virtual video visit. It required patient-provider interaction for the medical decision making as documented below. José Miguel Roth Jr. has consented to this video encounter. I have communicated my name and active licensure. The patient's identity and physical location were verified at the time of this visit. Either the patient or their legal community service representative has been informed of the risks [...] combined systolic and diastolic congestive heart failure ([facility]) 09/03/2022 Dyslipidemia GERD (gastroesophageal reflux disease) Heart failure, acute systolic ([facility]) Hypertension Hypothyroid Myocardial infarct, old Occlusion and stenosis of carotid artery without mention of cerebral infarction Prostate cancer ([facility]) 2020 PVD (peripheral vascular disease) ([facility]) 11/17/2012 Stroke (cerebrum) ([facility]) 09/03/2022 Systolic heart failure ([facility]) Thyroid disorder 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 kidney disease, unspecified CKD stage, unspecified whether intermediate manager insulin use ([facility]) 04/26/2023 Ventricular tachycardia ([facility]) 04/28/2012 PAST SURGICAL HISTORY Procedure Laterality Date [...] Artery Disease Father Heart Attack Father fatal [place] at age 77 Ischemic Heart Disease Brother CABGx6 first at age 72 No Known Problems Maternal Grandmother No Known Problems Maternal Grandfather No Known Problems Paternal Grandmother No Known Problems Paternal Grandfather No Known Problems Daughter No Known Problems Daughter No Known Problems Daughter other (Other) Other paternal cousin at age 50 of [place] Social History Tobacco Use Smoking status: Former [...] (NITROQUICK) 0.4 mg SL tabletas directed.Disp: Rfl: REGIONAL COORDINATOR THYROID 15 mg tabletas directed.Disp: Rfl: FARXIGA [...] Vision, (more content not included)... [facility] 04-26-2023 Note HNO ID: [id number] Author: Andreas Del Cid MD Service: ? Author Type: Physician Type: Progress Notes Filed: 04/27/2023 12:57 PM Note Text: Heart and Vascular [place] Jose Martin Silva Department of Cardiovascular Medicine SECTION OF CARDIOVASCULAR IMAGING OUTPATIENT VISIT DATE April 26, 2023 OUTPATIENT VISIT TYPE ESTABLISHED PRIMARY CARE PHYSICIAN: Francisca Thompson [address] [place] [address] REFERRING PHYSICIAN: Francisca Thompson [address] [facility] [address] CHIEF COMPLAINT: Follow up HISTORY OF PRESENT [...] without mention of cerebral infarction Prostate cancer ([facility]) 2020 PVD (peripheral vascular disease) ([facility]) 11/17/2012 Stroke (cerebrum) ([facility]) 09/03/2022 Systolic heart failure ([facility]) Thyroid disorder 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 kidney disease, unspecified CKD stage, unspecified whether intermediate manager insulin use ([facility]) 04/26/2023 Ventricular tachycardia ([facility]) 04/28/2012 PAST SURGICAL HISTORY Procedure Laterality Date [...] Artery Disease Father Heart Attack Father fatal [place] at age 77 other (atrial fibrillation) Mother other (CHF) Mother other (Other) Mother at age 96 Ischemic Heart Disease Brother CABGx6 first at age 72 No Known Problems Daughter No Known Problems Daughter No Known Problems Daughter other (Other) Other paternal cousin at age 50 of [place] ALLERGIES: ALLERGIES Allergen Reactions Latex Rash Adhesive [...] Wheezing, (more content not included)... [facility] 04-26-2023 History of Present illness Narrative Images from the original note were not included. [facility] [place] Jose Martin Silva Department of Cardiovascular Medicine SECTION OF CARDIOVASCULAR IMAGING OUTPATIENT VISIT DATE April 26, 2023 OUTPATIENT VISIT TYPE ESTABLISHED PRIMARY CARE PHYSICIAN: Francisca Thompson [address] [place] [address] REFERRING PHYSICIAN: Francisca Thompson [address] [facility] [phone] CHIEF COMPLAINT: Follow up HISTORY OF PRESENT [...] combined systolic and diastolic congestive heart failure ([facility]) 09/03/2022 Dyslipidemia GERD (gastroesophageal reflux disease) Heart failure, acute systolic ([facility]) Hypertension Hypothyroid Myocardial infarct, old Occlusion and stenosis of carotid artery without mention of cerebral infarction Prostate cancer ([facility]) 2020 PVD (peripheral vascular disease) ([facility]) 11/17/2012 Stroke (cerebrum) ([facility]) 09/03/2022 Systolic heart failure ([facility]) Thyroid disorder 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 kidney disease, unspecified CKD stage, unspecified whether intermediate manager insulin use ([facility]) 04/26/2023 Ventricular tachycardia ([facility]) 04/28/2012 PAST SURGICAL HISTORY Procedure Laterality Date [...] Artery Disease Father Heart Attack Father fatal [place] at age 77 other (atrial fibrillation) Mother other (CHF) Mother other (Other) Mother at age 96 Ischemic Heart Disease Brother CABGx6 first at age 72 No Known Problems Daughter No Known Problems Daughter No Known Problems Daughter other (Other) Other paternal cousin at age 50 of [place] ALLERGIES: ALLERGIES Allergen Reactions Latex Rash Adhesive [...] FOR LVH, MAY BE NORMAL VARIANT ( [place] product ) NONSPECIFIC T WAVE ABNORMALITY ABNORMAL ECG Confirmed by MD VIET, [facility] ([id number]) on 06/26/2022 4:47:04 PM IMPRESSION AND PLAN: [...] April 27, 2023 documented in this encounter [facility] 04-02-2023 Note HNO ID: [id number] Author: Yung Kim MD Service: ? Author [...] who recently had to be admitted to longterm due to feels safe. 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 No significant posttreatment problems. Recommend repeat PSA in 6 months. Signed by: Yung Kim MD cc: Francisca Thompson MD [address] [place] [address] [facility] 11-29-2022 Note HNO ID: [id number] Author: John Jefferson MD Service: Vascular Surgery Author Type: Physician Type: Progress Notes Filed: 11/30/2022 9:34 AM Note Text: NAME: JOSÉ MIGUEL [facility] NO: [id number] DATE OF SERVICE: 11/29/2022 DATE OF : 1940 He let us know he has changed his mind about proceeding with his carotid surgery. We will wait to see what he says about moving ahead and when he wants to reschedule. John Jefferson M.D. SPL/089 Audio #: [id number] Date Dictated: 11/29/2022 14:25:32 Date Typed: 11/30/2022 09:05:53 Date Revised: [facility] 11-29-2022 Miscellaneous Notes Mr. Roth decided not to move forward with surgery at this time and would like to cancel. Darlene Rajput Line Servicer documented in this encounter [facility] 11-29-2022 History of Present illness Narrative NAME: JOSÉ MIGUEL [facility]OTH [facility] NO: [id number] DATE OF SERVICE: 11/29/2022 DATE OF : 1940 He let us know he has changed his mind about proceeding with his carotid surgery. We will wait to see what he says about moving ahead and when he wants to reschedule. John Jefferson M.D. SPL/089 Audio #: [id number] Date Dictated: 11/29/2022 14:25:32 Date Typed: 11/30/2022 09:05:53 Date Revised: documented in this encounter [facility] 10-31-2022 Miscellaneous Notes Called patient José Miguel to clarify surgery date and advise pre scheduled date requested, asked if I could look up his brothers surgery information, advised I could not my apologizes,to also check as he has EKG/Echo scheduled with Cardiac scheduled day after surgery ..Tiffany Clifton documented in this encounter [facility] 10-26-2022 Note HNO ID: [id number] Author: Andreas Del Cid MD Service: ? Author Type: Physician Type: Progress Notes Filed: 11/02/2022 10:08 AM Note Text: [facility] [place] Jose Martin Silva Department of Cardiovascular Medicine SECTION OF CARDIOVASCULAR IMAGING OUTPATIENT VISIT DATE October 26, 2022 OUTPATIENT VISIT TYPE ESTABLISHED PRIMARY CARE PHYSICIAN: Francisca Thompson MD [address] [place] [address] REFERRING PHYSICIAN: Andreas Del Cid [address] [facility] [address] CHIEF COMPLAINT: Follow up HISTORY OF PRESENT [...] combined systolic and diastolic congestive heart failure ([facility]) 09/03/2022 Dyslipidemia GERD (gastroesophageal reflux disease) Heart failure, acute systolic ([facility]) Hypertension Hypothyroid Myocardial infarct, old Occlusion and stenosis of carotid artery without mention of cerebral infarction Prostate cancer ([facility]) 2020 PVD (peripheral vascular disease) ([facility]) 11/17/2012 Stroke (cerebrum) ([facility]) 09/03/2022 Systolic heart failure ([facility]) Thyroid disorder Ventricular tachycardia 04/28/2012 PAST SURGICAL [...] Artery Disease Father Heart Attack Father fatal [place] at age 77 other (atrial fibrillation) Mother other (CHF) Mother other (Other) Mother at age 96 Ischemic Heart Disease Brother CABGx6 first at age 72 No Known Problems Daughter No Known Problems Daughter No Known Problems Daughter other (Other) Other paternal cousin at age 50 of [place] ALLERGIES: ALLERGIES Allergen Reactions Latex Rash Adhesive [...] Memor (more content not included)... [facility] 10-26-2022 History of Present illness Narrative Images from the original note were not included. [facility] [place] Jose Martin Silva Department of Cardiovascular Medicine SECTION OF CARDIOVASCULAR IMAGING OUTPATIENT VISIT DATE October 26, 2022 OUTPATIENT VISIT TYPE ESTABLISHED PRIMARY CARE PHYSICIAN: Francisca Thompson MD [address] [place] [address] REFERRING PHYSICIAN: Andreas Del Cid [phone] [facility] [id number] CHIEF COMPLAINT: Follow up HISTORY OF PRESENT [...] combined systolic and diastolic congestive heart failure ([facility]) 09/03/2022 Dyslipidemia GERD (gastroesophageal reflux disease) Heart failure, acute systolic ([facility]) Hypertension Hypothyroid Myocardial infarct, old Occlusion and stenosis of carotid artery without mention of cerebral infarction Prostate cancer ([facility]) 2020 PVD (peripheral vascular disease) ([facility]) 11/17/2012 Stroke (cerebrum) ([facility]) 09/03/2022 Systolic heart failure ([facility]) Thyroid disorder Ventricular tachycardia 04/28/2012 PAST SURGICAL [...] Artery Disease Father Heart Attack Father fatal [place] at age 77 other (atrial fibrillation) Mother other (CHF) Mother other (Other) Mother at age 96 Ischemic Heart Disease Brother CABGx6 first at age 72 No Known Problems Daughter No Known Problems Daughter No Known Problems Daughter other (Other) Other paternal cousin at age 50 of [place] ALLERGIES: ALLERGIES Allergen Reactions Latex Rash Adhesive [...] ABNORMALITY ABNORMAL ECG Confirmed by MD VIET, HE ([id number]) on 06/26/2022 4:47:04 PM IMPRESSION AND PLAN: [...] November 02, 2022 documented in this encounter [facility] 10-25-2022 Instructions Andreas Del Cid MD - 10/25/2022 4:11 PM EST OK for surgery. Do not take your lisinopril the day before and the day of surgery. Continue your other medications. Check blood work today. Return in 6 months with an echocardiogram. documented in this encounter [facility] 10-25-2022 Note HNO ID: [id number] Author: Luigi Desai [employer] Service: Nuclear Medicine Author Type: Associate Product Manager Type: Progress Notes Filed: 10/25/2022 2:20 PM [...] POST EXAM PIV STATUS: Discontinued PROCEDURE TYPE: CT PET Myocardial Imagin.0 mCi Rb-82(Rubidium) was administered IV for Rest Imaging at 1346. 30.1 mCi Rb-82(Rubidium) was administered IV for Stress Imaging at 1359. Viability Imaging performed: Yes = Viability Imaging. 9.2 millicurie F-18 FDG ADMINISTRATION TIME: 1416 PATIENT DISCHARGED TO: Ambulatory patient, left CT department area. A Diagnostic radioactive procedure has taken place, with no further precautions necessary other than routine body substance precautions. More information regarding radiation safety can be found using this link: [email or web address] 0Protection %[email or web address]-%20Diagnostic%20Nuclear%20Me dicine%20Procedures.pdf SIGNATURE: Luigi Desai [employer] PATIENT NAME: José Miguel Roth Jr. DATE: October 25, 2022 TIME: 1:32 PM PAGER/CONTACT #: [facility] 10-25-2022 Note HNO ID: [id number] Author: Josselin Claros RN Service: ? Author [...] ALLERGIES: Reviewed and unchanged MEDICATIONS REVIEWED BY: Bilingual Teacher and Josselin Claros RN PROCEDURE TYPE: CT PET Myocardial Imagin.4 mg of Regadenoson was administered at 1359 over 10 Seconds. Reversal agent used: None. and NM PET Myocardial Action Taken: POCT Blood Glucose 101 mg/dL at 1339 (QC = OK).9.2 mCi FDG-18 IV at 1416. POCT Blood Glucose 98 mg/dL at 1415 (QC = OK). Expiration date: 16JUN2025 Lot#: [id number] IV SITE: Ambulatory: A peripheral IV was started in the Right forearm with a Angio cath: 20 gauge. and A Saline lock was inserted per protocol POST EXAM PIV STATUS: Discontinued PATIENT DISCHARGED TO: Ambulatory patient, left [place] department area. A Diagnostic radioactive procedure has taken place, with no further precautions necessary other than routine body substance precautions. More information regarding radiation safety can be found using this link: [email or web address] 0Protection %20-%20Diagnostic%20Nuclear%20Me dicine%20Procedures.pdf SIGNATURE: Josselin Claros RN PATIENT NAME: José Miguel Roth Jr. DATE: October 25, 2022 TIME: 1:46 PM PAGER/CONTACT #: [facility] 10-25-2022 History of Present illness Narrative RADIOLOGY SERVICE PROGRESS NOTE SERVICE DATE: 10/25/2022 SERVICE TIME: 1:46 PM PATIENT IDENTITY VERIFICATION COMPLETED USING TWO (2) STANDARD IDENTIFIERS: Name and Date of confirmed by patient verbally and Name and Date of confirmed by identification band PATIENT GENDER DATA: male ALLERGIES: Reviewed and unchanged MEDICATIONS REVIEWED BY: Bilingual Teacher and Josselin Claros RN PROCEDURE TYPE: NM PET Myocardial Imagin.4 mg of Regadenoson was administered at 1359 over 10 Seconds. Reversal agent used: None. and NM PET Myocardial Action Taken: POCT Blood Glucose 101 mg/dL at 1339 (QC = OK).9.2 mCi FDG-18 IV at 1416. POCT Blood Glucose 98 mg/dL at 1415 (QC = OK). Expiration date: 16JUN2025 Lot#: [id number] IV SITE: Ambulatory: A peripheral IV was started in the Right forearm with a Angio cath: 20 gauge. and A Saline lock was inserted per protocol POST EXAM PIV STATUS: Discontinued PATIENT DISCHARGED TO: Ambulatory patient, left [place] department area. A Diagnostic radioactive procedure has taken place, with no further precautions necessary other than routine body substance precautions. More information regarding radiation safety can be found using this link: [email or web address]%[email or web address] 0Protection%20-%20Diagnostic%20N uclear%20Medicine%20Procedures.p df SIGNATURE: Josselin Claros [...] 1416 PATIENT DISCHARGED TO: Ambulatory patient, left CT department area. A Diagnostic radioactive procedure has taken place, with no further precautions necessary other than routine body substance precautions. More information regarding radiation safety can be found using this link: [email or web address] 0Protection%20-%20Diagnostic%20N uclear%20Medicine%20Procedures.p df SIGNATURE: Luigi Desai [employer] PATIENT NAME: José Miguel Roth Jr. DATE: October 25, 2022 TIME: 1:32 PM PAGER/CONTACT #: documented in this encounter [facility] 10-02-2022 Note HNO ID: [id number] Author: Yung Kim MD Service: ? Author Type: Physician Type: Progress Notes Filed: 10/08/2022 1:29 PM Note Text: Radiation Oncology - Follow Up Note PATIENT NAME: José Miguel Roth Jr. PATIENT DIAGNOSIS: Trying to get him a note from overview couple days rather do the PET scan for less a significantly Met second prostate adenocarcinoma, initial PSA 8, biopsy [place] score 3 + 4 = 7 (grade group 2), clinical stage T1c, N0, M0, stage IIB [T1-T2, N0, M0, PSA <20, GG 2] (AJCC 8th ed.), s/p TRUS Random biopsy, Patient elected observation and was found to have progression, PSA 08/2021 36.2. and repeat biopsy showing Ivory 7 (3+4) adenocarcinoma. Okay RADIATION SUMMARY: DATES [...] ASSESSMENT/PLAN: Prostate adenocarcinoma, initial PSA 8, biopsy [place] score 3 + 4 = 7 (grade [...] Yung Kim MD cc: Francisca Thompson MD [address] [place] [address] [facility] 10-02-2022 Nurse Note AUA 1.5 Kathie Pavon RN documented in this encounter [facility] 10-02-2022 History of Present illness Narrative [...] PSA 08/2021 36.2. and repeat biopsy showing [place]ions[place] 7 (3+4) adenocarcinoma. Lela RADIATION SUMMARY: DATES OF TREATMENT: 10/23/2021 to [...] Yung Kim MD cc: Francisca Thompson MD [address] [place] [id number] documented in this encounter [facility] 09-11-2022 Miscellaneous Notes 09/11 Spoke with [...] failure (HCC) [I50.22] Coronary artery disease involving [place] coronary artery of [place] heart without angina pectoris [I25.10] Test Approved by: Aisha Benavides RN If additional orders are required route to ordering physician and to P PET BOTTOM IRONER [facility] with recommendations. If all recommended orders are present route to P PET BOTTOM IRONER [facility] This form is used for MAIN CAMPUS APPOINTMENTS ONLY. Is this request for a Main [place] PET scan appointment? Yes: Grocery Store Clerk: Darlene Barker ADM Requesting Person (Andreas Del Cid): [phone] Area Code + Phone/Pager: Who do we [...] day/next day medically urgent scans please call [phone] to expedite LVEF: LV Ejection Fraction (%) Date Value 06/06/2022 20 LVEF Free text: Yes, see above. Additional comments: N/A Send requests to P CARDIAC PET MD NERI documented in this encounter [facility] 09-03-2022 History of Present illness Narrative Images from the original note were not included. DATE: 07/01/2012 AGE: 72 SURGEON 1: John Jefferson M.D. OPERATION: Right carotid endarterectomy with bovine patch angioplasty. [facility] [place] DEPARTMENT OF VASCULAR SURGERY OUTPATIENT VISIT DATE September 03, 2022 OUTPATIENT VISIT TYPE CONSULTATION SERVICE DATE: 09/03/2022 SERVICE TIME: 11:53 AM PRIMARY CARE PHYSICIAN: Francisca Thompson MD, MD REFERRING PROVIDER: Francisca Thompson MD [address] [place] [address] Consult requested for an opinion regarding the [...] Of note, he was recently hospitalized in [place] on April for not feeling well. He has been grieving since his has passed in December. 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 without mention of cerebral infarction Prostate cancer (HCC) 2020 PVD (peripheral vascular disease) ([facility]) 11/17/2012 Thyroid disorder Ventricular tachycardia 04/28/2012 PAST [...] Artery Disease Father Heart Attack Father fatal [place] at age 77 other (atrial fibrillation) Mother other (CHF) Mother other (Other) Mother at age 96 Ischemic Heart Disease Brother CABGx6 first at age 72 No Known Problems Daughter No Known Problems Daughter No Known Problems Daughter other (Other) Other paternal cousin at age 50 of [place] MEDICATIONS: therapeutic multivitamin w/ iron (THERAGRAN-M) 27-0.4 [...] reviewed for today's visit: HUSSEIN Jefferson MD ([id number]) paged with results. Compared to prior study [...] flow noted. Abnormal signal suggests pre-steal. IMPRESSION: [facility] STAFF PHYSICIAN NOTE OF PERSONAL INVOLVEMENT IN [...] TIME: 2:20 PM documented in this encounter [facility] 08-01-2022 Miscellaneous Notes Mr Roth's daughter called and she would like to schedule an appointment with pt advised to do so due to Carotid stenosis seen Dr jefferson in 2011 regarding right side now its the left side having issues Contact Name (If not the pt): stan Box Home and cell number: [phone] Diagnosis: Carotid stenosis Kind Regards Ayana Shania documented in this encounter [facility] 07-30-2022 Miscellaneous Notes Reason for call: Mr Roth called,and he would like to schedule an appointment with Contact Name (If not the pt): Charu daughter Home and cell number: [phone] Diagnosis: Mitral valve insufficiency, unspecified etiology Kind Regards Megdiamond documented in this encounter [facility] 07-26-2022 Note Discussed the condit ion [...] gave them the phone number of the extrusion operator and the office number if she likes to talk to me and happy to discuss that with her. I offered to proceed with doing the procedure for next week however the patient has to come back to me for approval or declining to do the procedure. I answered the questions about the activity after the procedure. [facility] 07-25-2022 Miscellaneous Notes Images have been pushed through into [employer]. Daughter would like you to call her to go over things as this was all completed after he saw you in office. She can be reached at [phone] Her name is Charu documented in this encounter [facility] 07-23-2022 Note Patient here for 2 [...] artery disease involving coronary bypass graft of [place] heart Chronic systolic heart failure (CMS/HCC) NSVT (nonsustained ventricular tachycardia) Old [place] (myocardial infarction) Mitral valve insufficiency Claudication, intermittent [...] He was recently admitted transferred from the [facility] to [facility] with acute on chronic systolic heart failure [...] by his primary care physician Dr. Francisca Thomposn. He has history of carotid artery stenosis status post right carotid endarterectomy many years ago. In August 2021 he was admitted to the [facility] after sustaining a acute ischemic stroke with left upper and lower extremity paralysis that was treated by intravenous tPA with resolution of his symptoms. At that time he was discovered to have severe stenosis of the left internal carotid artery. He was lost to follow-up after that. During his recent stay at [facility] and echocardiogram confirmed very high-grade stenosis of [...] currently undergoing physical rehab at a nearby longterm. Visit of 07/23/2022: At last visit I [...] normal. There is (more content not included)... [facility] 06-06-2022 History of Present illness Narrative [facility] [place] Jose Martin Silva Department of Cardiovascular Medicine SECTION OF CARDIOVASCULAR IMAGING OUTPATIENT VISIT DATE June 06, 2022 OUTPATIENT VISIT TYPE ESTABLISHED PRIMARY CARE PHYSICIAN: Francisca Thompson MD [address] [place] [address] CHIEF COMPLAINT: Follow up HISTORY OF PRESENT [...] without mention of cerebral infarction Prostate cancer ([facility]) 2020 PVD (peripheral vascular disease) ([facility]) 11/17/2012 Thyroid disorder Ventricular tachycardia ([facility]) 04/28/2012 PAST SURGICAL HISTORY Procedure Laterality Date [...] Artery Disease Father Heart Attack Father fatal [place] at age 77 other (atrial fibrillation) Mother other (CHF) Mother other (Other) Mother at age 96 Ischemic Heart Disease Brother CABGx6 first at age 72 No Known Problems Daughter No Known Problems Daughter No Known Problems Daughter other (Other) Other paternal cousin at age 50 of [place] ALLERGIES: ALLERGIES Allergen Reactions Latex Rash Adhesive [...] any questions regarding this interpretation, please call [phone]. If you are unable to reach us at the number above, please feel free to contact [facility] at [phone]. IMPRESSION: Mr. Roth is a 82 year [...] June 06, 2022 documented in this encounter [facility] 05-28-2022 Note Subjective José Miguel Roth is a 82 y.o. male. Chief Complaint: Coronary Artery Disease, Congestive Heart Failure, NSVT, Claudication, Valve Disorder, Hyperlipidemia, and Hypertension Nursing Note: Patient here for [facility] follow up. He is re-transferring care from [facility]. He underwent cardiac cath on 05/18/[address] Hall. He has a [employer] ICD. 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 Chronic systolic heart failure (CMS/HCC) NSVT (nonsustained ventricular tachycardia) (CMS/HCC) Old [place] (myocardial infarction) Mitral valve insufficiency Claudication, intermittent (CMS/HCC) Family History Problem Relation Name Age of [...] He was recently admitted transferred from the [facility] to [facility] with acute on chronic systolic heart failure [...] August 2021 he was admitted to the [facility] after sustaining a acute ischemic stroke with left upper and lower extremity paralysis that was treated by intravenous tPA with resolution of his symptoms. At that time he was discovered to have severe stenosis of the left internal carotid artery. He was lost to follow-up after that. During his recent stay at [facility] and echocardiogram confirmed very high-grade stenosis of [...] currently undergoing physical rehab at a nearby longterm. Review of Systems Constitutional: Negative for chills. [...] the morning., Disp: , Rfl: thyroid, pork, (Stuart Thyroid) 90 m (more content not included)... [facility] 04-26-2022 History of Present illness Narrative AMBULATORY TELEPHONE VISIT José Miguel Juarez Ira Sorto has consented to this telephone encounter. Persons [...] Assessment: Prostate adenocarcinoma, initial PSA 8, biopsy [place] score 3 + 4 = 7 (grade group 2), clinical stage T1c, N0, M0, stage IIB [T1-T2, N0, M0, PSA <20, GG 2] (AJCC 8th ed.), s/p TRUS Random biopsy, Patient elected observation and was found to have progression, PSA 08/2021 36.2. and repeat biopsy showing Ivory 7 (3+4) adenocarcinoma. Overall doing well without evidence of recurrence. PSA remains undetectable. Has been off Lupron now, last dose approximately 9 months ago. Recommend continued PSA surveillance. Total Time Spent: 5 minutes Yung Kim MD documented in this encounter [facility] 01-03-2022 History of Present illness Narrative [facility] Radiation Oncology Department RADIATION ONCOLOGY - [...] Staff Physician Denilson Kim M.D. / LINDA :25 PM documented in this encounter [facility] 12-18-2021 History of Present illness Narrative [facility] Radiation Oncology Department RADIATION ONCOLOGY - COMPLETION NOTE PATIENT: JOSÉ MIGUEL ROTH: 1940 DATES OF TREATMENT: 10/23/2021 to 12/19/2019 DIAGNOSIS: Prostate adenocarcinoma, initial PSA 8, biopsy [place] score 3 + 4 = 7 (grade group 2), clinical stage T1c, N0, M0, stage IIB [T1-T2, N0, M0, PSA <20, GG 2] (AJCC 8th ed.), s/p TRUS Random biopsy, Patient elected observation and was found to have progression, PSA 08/2021 36.2. and repeat biopsy showing [place] 7 (3+4) adenocarcinoma. AREA TREATED: Pelvis Prostate [...] LINDA 21:22 PM documented in this encounter [facility] 12-11-2021 History of Present illness Narrative [...] Yung Kim MD documented in this encounter [facility] 05-01-2012 History of Past i llness [...] 56, Troponin T .37 on admission to [facility] Wide-complex tachycardia 04/28/2012 012 Overview: Presented to OSH 04/28/12 in setting acute ME with wide complex tachycardia SVT versus VT. Given adenosine x2 without effect, diltiazem bolus and infusion with no effect. Spontaneous conversion to NSR. Had short run of wide complex tachycardia upon arrival to [facility] from C[facility]. Pre-op evaluation 04/28/2012 05/01/2012 Overview: Preoperative evaluation for CABG. Not ReDo -Carotids: Ordered -Vein Mapping: Ordered -Bedside PFTs: Ordered -Formal TTE: Ordered -CXR: Completed documented as of this encounter (statuses as of 12/18/2021) [facility]08-16-2012 History of Past illness Narrative* Problem [...] 56, Troponin T .37 on admission to [facility] Wide-complex tachycardia 04/28/2012 08/ 012 Overview: Presented to OSH 04/28/12 in setting acute ME with wide complex tachycardia SVT versus VT. Given adenosine x2 without effect, diltiazem bolus and infusion with no effect. Spontaneous conversion to NSR. Had short run of wide complex tachycardia upon arrival to [facility] from CICU. Pre-op evaluation 04/28/2012 05/01/2012 Overview: Preoperative evaluation for CABG. Not ReDo -Carotids: Ordered -Vein Mapping: Ordered -Bedside PFTs: Ordered -Formal TTE: Ordered -CXR: Completed documented as of this encounter (statuses as of 12/21/2021) [facility]08[facility] History of Past illness Narrative* Problem [...] 56, Troponin T .37 on admission to [facility] Wide-complex tachycardia 04/28/2012 012 Overview: Presented to OSH 04/28/12 in setting acute ME with wide complex tachycardia SVT versus VT. Given adenosine x2 without effect, diltiazem bolus and infusion with no effect. Spontaneous conversion to NSR. Had short run of wide complex tachycardia upon arrival to [facility] from [facility]. Pre-op evaluation 04/28/2012 05/01/2012 Overview: Preoperative evaluation for CABG. Not ReDo -Carotids: Ordered -Vein Mapping: Ordered -Bedside PFTs: Ordered -Formal TTE: Ordered -CXR: Completed documented as of this encounter (statuses as of 01/15/2022) [facility] History of Past illness Narrative* Problem [...] 56, Troponin T .37 on admission to [facility] Wide-complex tachycardia 04/28/2012 012 Overview: Presented to OSH 04/28/12 in setting acute ME with wide complex tachycardia SVT versus VT. Given adenosine x2 without effect, diltiazem bolus and infusion with no effect. Spontaneous conversion to NSR. Had short run of wide complex tachycardia upon arrival to [facility] from CICU. Pre-op evaluation 04/28/2012 05/01/2012 Overview: Preoperative evaluation for CABG. Not ReDo -Carotids: Ordered -Vein Mapping: Ordered -Bedside PFTs: Ordered -Formal TTE: Ordered -CXR: Completed documented as of this encounter (statuses as of 01/18/2022) [facility] History of Past illness Narrative* Problem [...] 56, Troponin T .37 on admission to [facility] Wide-complex tachycardia 04/28/2012 012 Overview: Presented to OSH 04/28/12 in setting acute ME with wide complex tachycardia SVT versus VT. Given adenosine x2 without effect, diltiazem bolus and infusion with no effect. Spontaneous conversion to NSR. Had short run of wide complex tachycardia upon arrival to [facility] from C[facility]. Pre-op evaluation 04/28/2012 05/01/2012 Overview: Preoperative evaluation for CABG. Not ReDo -Carotids: Ordered -Vein Mapping: Ordered -Bedside PFTs: Ordered -Formal TTE: Ordered -CXR: Completed documented as of this encounter (statuses as of 02/06/2022) [facility] History of Past illness Narrative* Problem [...] 56, Troponin T .37 on admission to [facility] Wide-complex tachycardia 04/28/2012 012 Overview: Presented to OSH 04/28/12 in setting acute ME with wide complex tachycardia SVT versus VT. Given adenosine x2 without effect, diltiazem bolus and infusion with no effect. Spontaneous conversion to NSR. Had short run of wide complex tachycardia upon arrival to [facility] from [facility]. Pre-op evaluation 04/28/2012 05/01/2012 Overview: Preoperative evaluation for CABG. Not ReDo -Carotids: Ordered -Vein Mapping: Ordered -Bedside PFTs: Ordered -Formal TTE: Ordered -CXR: Completed documented as of this encounter (statuses as of 04/26/2022) [facility] History of Past illness Narrative* Problem [...] 56, Troponin T .37 on admission to [facility] Wide-complex tachycardia 04/28/2012 012 Overview: Presented to OSH 04/28/12 in setting acute ME with wide complex tachycardia SVT versus VT. Given adenosine x2 without effect, diltiazem bolus and infusion with no effect. Spontaneous conversion to NSR. Had short run of wide complex tachycardia upon arrival to [facility] from [facility]. Pre-op evaluation 04/28/2012 05/01/2012 Overview: Preoperative evaluation for CABG. Not ReDo -Carotids: Ordered -Vein Mapping: Ordered -Bedside PFTs: Ordered -Formal TTE: Ordered -CXR: Completed documented as of this encounter (statuses as of 05/08/2022) [facility] History of Past illness Narrative* Problem [...] 56, Troponin T .37 on admission to [facility] Wide-complex tachycardia 04/28/2012 012 Overview: Presented to OSH 04/28/12 in setting acute ME with wide complex tachycardia SVT versus VT. Given adenosine x2 without effect, diltiazem bolus and infusion with no effect. Spontaneous conversion to NSR. Had short run of wide complex tachycardia upon arrival to [facility] from [facility]. Pre-op evaluation 04/28/2012 05/01/2012 Overview: Preoperative evaluation for CABG. Not ReDo -Carotids: Ordered -Vein Mapping: Ordered -Bedside PFTs: Ordered -Formal TTE: Ordered -CXR: Completed documented as of this encounter (statuses as of 06/06/2022) [facility] History of Past illness Narrative* Problem [...] 56, Troponin T .37 on admission to [facility] Wide-complex tachycardia 04/28/2012 08/20/2 012 Overview: Presented to OSH 04/28/12 in setting acute ME with wide complex tachycardia SVT versus VT. [...] of this encounter (statuses as of 06/06/2022) [facility] History of Past illness Narrative* Problem [...] 56, Troponin T .37 on admission to [facility] Wide-complex tachycardia 04/28/20122 012 Overview: Presented to OSH 04/28/12 in setting acute ME with wide complex tachycardia SVT versus VT. Given adenosine x2 without effect, diltiazem bolus and infusion with no effect. Spontaneous conversion to NSR. Had short run of wide complex tachycardia upon arrival to [facility] from [facility]. Pre-op evaluation 04/28/2012 05/01/2012 Overview: Preoperative evaluation for CABG. Not ReDo -Carotids: Ordered -Vein Mapping: Ordered -Bedside PFTs: Ordered -Formal TTE: Ordered -CXR: Completed documented as of this encounter (statuses as of 07/31/2022) [facility] History of Past illness Narrative* Problem [...] 56, Troponin T .37 on admission to [facility] Wide-complex tachycardia 04/28/2012 012 Overview: Presented to OSH 04/28/12 in setting acute ME with wide complex tachycardia SVT versus VT. Given adenosine x2 without effect, diltiazem bolus and infusion with no effect. Spontaneous conversion to NSR. Had short run of wide complex tachycardia upon arrival to [facility] from [facility]. Pre-op evaluation 04/28/2012 05/01/2012 Overview: Preoperative evaluation for CABG. Not ReDo -Carotids: Ordered -Vein Mapping: Ordered -Bedside PFTs: Ordered -Formal TTE: Ordered -CXR: Completed documented as of this encounter (statuses as of 08/01/2022) [facility] History of Past illness Narrative* Problem [...] 56, Troponin T .37 on admission to [facility] Wide-complex tachycardia 04/28/2012 012 Overview: Presented to OSH 04/28/12 in setting acute ME with wide complex tachycardia SVT versus VT. Given adenosine x2 without effect, diltiazem bolus and infusion with no effect. Spontaneous conversion to NSR. Had short run of wide complex tachycardia upon arrival to [facility]. Pre-op evaluation 04/28/2012 05/01/2012 Overview: Preoperative evaluation for CABG. Not ReDo -Carotids: Ordered -Vein Mapping: Ordered -Bedside PFTs: Ordered -Formal TTE: Ordered -CXR: Completed documented as of this encounter (statuses as of 08/03/2022) [facility] History of Past illness Narrative* Problem [...] 56, Troponin T .37 on admission to [facility] Wide-complex tachycardia 04/28/2012 012 Overview: Presented to OSH 04/28/12 in setting acute ME with wide complex tachycardia SVT versus VT. Given adenosine x2 without effect, diltiazem bolus and infusion with no effect. Spontaneous conversion to NSR. Had short run of wide complex tachycardia upon arrival to [facility] from [facility]. Pre-op evaluation 04/28/2012 05/01/2012 Overview: Preoperative evaluation for CABG. Not ReDo -Carotids: Ordered -Vein Mapping: Ordered -Bedside PFTs: Ordered -Formal TTE: Ordered -CXR: Completed documented as of this encounter (statuses as of 08/07/2022) [facility] History of Past illness Narrative* Problem [...] 56, Troponin T .37 on admission to [facility] Wide-complex tachycardia 04/28/2012 012 Overview: Presented to OSH 04/28/12 in setting acute ME with wide complex tachycardia SVT versus VT. Given adenosine x2 without effect, diltiazem bolus and infusion with no effect. Spontaneous conversion to NSR. Had short run of wide complex tachycardia upon arrival to [facility] from [facility]. Pre-op evaluation 04/28/2012 05/01/2012 Overview: Preoperative evaluation for CABG. Not ReDo -Carotids: Ordered -Vein Mapping: Ordered -Bedside PFTs: Ordered -Formal TTE: Ordered -CXR: Completed documented as of this encounter (statuses as of 08/17/2022) [facility] History of Past illness Narrative* Problem [...] 56, Troponin T .37 on admission to [facility] Wide-complex tachycardia 04/28/2012 012 Overview: Presented to OSH 04/28/12 in setting acute ME with wide complex tachycardia SVT versus VT. Given adenosine x2 without effect, diltiazem bolus and infusion with no effect. Spontaneous conversion to NSR. Had short run of wide complex tachycardia upon arrival to [facility] from [facility]. Pre-op evaluation 04/28/2012 05/01/2012 Overview: Preoperative evaluation for CABG. Not ReDo -Carotids: Ordered -Vein Mapping: Ordered -Bedside PFTs: Ordered -Formal TTE: Ordered -CXR: Completed documented as of this encounter (statuses as of 09/03/2022) [facility] History of Past illness Narrative* Problem [...] 56, Troponin T .37 on admission to [facility] Wide-complex tachycardia 04/28/2012 012 Overview: Presented to OSH 04/28/12 in setting acute ME with wide complex tachycardia SVT versus VT. Given adenosine x2 without effect, diltiazem bolus and infusion with no effect. Spontaneous conversion to NSR. Had short run of wide complex tachycardia upon arrival to [facility] from [facility]. Pre-op evaluation 04/28/2012 05/01/2012 Overview: Preoperative evaluation for CABG. Not ReDo -Carotids: Ordered -Vein Mapping: Ordered -Bedside PFTs: Ordered -Formal TTE: Ordered -CXR: Completed documented as of this encounter (statuses as of 09/07/2022) [facility] History of Past illness Narrative* Problem [...] 56, Troponin T .37 on admission to [facility] Wide-complex tachycardia 04/28/2012 012 Overview: Presented to OSH 04/28/12 in setting acute ME with wide complex tachycardia SVT versus VT. Given adenosine x2 without effect, diltiazem bolus and infusion with no effect. Spontaneous conversion to NSR. Had short run of wide complex tachycardia upon arrival to [facility] from [facility]. Pre-op evaluation 04/28/2012 05/01/2012 Overview: Preoperative evaluation for CABG. Not ReDo -Carotids: Ordered -Vein Mapping: Ordered -Bedside PFTs: Ordered -Formal TTE: Ordered -CXR: Completed documented as of this encounter (statuses as of 10/08/2022) [facility] History of Past illness Narrative* Problem [...] 56, Troponin T .37 on admission to [facility] Wide-complex tachycardia 04/28/2012 012 Overview: Presented to OSH 04/28/12 in setting acute ME with wide complex tachycardia SVT versus VT. Given adenosine x2 without effect, diltiazem bolus and infusion with no effect. Spontaneous conversion to NSR. Had short run of wide complex tachycardia upon arrival to [facility] from [facility]. Pre-op evaluation 04/28/2012 05/01/2012 Overview: Preoperative evaluation for CABG. Not ReDo -Carotids: Ordered -Vein Mapping: Ordered -Bedside PFTs: Ordered -Formal TTE: Ordered -CXR: Completed documented as of this encounter (statuses as of 10/26/2022) [facility] History of Past illness Narrative* Problem [...] 56, Troponin T .37 on admission to [facility] Wide-complex tachycardia 04/28/2012 012 Overview: Presented to OSH 04/28/12 in setting acute ME with wide complex tachycardia SVT versus VT. Given adenosine x2 without effect, diltiazem bolus and infusion with no effect. Spontaneous conversion to NSR. Had short run of wide complex tachycardia upon arrival to [facility] from [facility]. Pre-op evaluation 04/28/2012 05/01/2012 Overview: Preoperative evaluation for CABG. Not ReDo -Carotids: Ordered -Vein Mapping: Ordered -Bedside PFTs: Ordered -Formal TTE: Ordered -CXR: Completed documented as of this encounter (statuses as of 10/26/2022) [facility] History of Past illness Narrative* Problem [...] 56, Troponin T .37 on admission to [facility] Wide-complex tachycardia 04/28/2012 012 Overview: Presented to OSH 04/28/12 in setting acute ME with wide complex tachycardia SVT versus VT. Given adenosine x2 without effect, diltiazem bolus and infusion with no effect. Spontaneous conversion to NSR. Had short run of wide complex tachycardia upon arrival to [facility] from [facility]. Pre-op evaluation 04/28/2012 05/01/2012 Overview: Preoperative evaluation for CABG. Not ReDo -Carotids: Ordered -Vein Mapping: Ordered -Bedside PFTs: Ordered -Formal TTE: Ordered -CXR: Completed documented as of this encounter (statuses as of 10/31/2022) [facility] History of Past illness Narrative* Problem [...] 56, Troponin T .37 on admission to [facility] Wide-complex tachycardia 04/28/2012 012 Overview: Presented to OSH 04/28/12 in setting acute ME with wide complex tachycardia SVT versus VT. Given adenosine x2 without effect, diltiazem bolus and infusion with no effect. Spontaneous conversion to NSR. Had short run of wide complex tachycardia upon arrival to [facility] from [facility]. Pre-op evaluation 04/28/2012 05/01/2012 Overview: Preoperative evaluation for CABG. Not ReDo -Carotids: Ordered -Vein Mapping: Ordered -Bedside PFTs: Ordered -Formal TTE: Ordered -CXR: Completed documented as of this encounter (statuses as of 11/02/2022) [facility] History of Past illness Narrative* Problem [...] 56, Troponin T .37 on admission to [facility] Wide-complex tachycardia 04/28/2012 012 Overview: Presented to OSH 04/28/12 in setting acute ME with wide complex tachycardia SVT versus VT. Given adenosine x2 without effect, diltiazem bolus and infusion with no effect. Spontaneous conversion to NSR. Had short run of wide complex tachycardia upon arrival to [facility] from [facility]. Pre-op evaluation 04/28/2012 05/01/2012 Overview: Preoperative evaluation for CABG. Not ReDo -Carotids: Ordered -Vein Mapping: Ordered -Bedside PFTs: Ordered -Formal TTE: Ordered -CXR: Completed documented as of this encounter (statuses as of 11/07/2022) [facility] History of Past illness Narrative* Problem [...] 56, Troponin T .37 on admission to [facility] Wide-complex tachycardia 04/28/2012 012 Overview: Presented to OSH 04/28/12 in setting acute ME with wide complex tachycardia SVT versus VT. Given adenosine x2 without effect, diltiazem bolus and infusion with no effect. Spontaneous conversion to NSR. Had short run of wide complex tachycardia upon arrival to [facility] from [facility]. Pre-op evaluation 04/28/2012 05/01/2012 Overview: Preoperative evaluation for CABG. Not ReDo -Carotids: Ordered -Vein Mapping: Ordered -Bedside PFTs: Ordered -Formal TTE: Ordered -CXR: Completed documented as of this encounter (statuses as of 11/29/2022) [facility] History of Past illness Narrative* Problem [...] 56, Troponin T .37 on admission to [facility] Wide-complex tachycardia 04/28/2012 012 Overview: Presented to OSH 04/28/12 in setting acute ME with wide complex tachycardia SVT versus VT. Given adenosine x2 without effect, diltiazem bolus and infusion with no effect. Spontaneous conversion to NSR. Had short run of wide complex tachycardia upon arrival to [facility] from [facility]. Pre-op evaluation 04/28/2012 05/01/2012 Overview: Preoperative evaluation for CABG. Not ReDo -Carotids: Ordered -Vein Mapping: Ordered -Bedside PFTs: Ordered -Formal TTE: Ordered -CXR: Completed documented as of this encounter (statuses as of 11/30/2022) [facility] History of Past illness Narrative* Problem [...] 54, Troponin T .37 on admission to [facility] Wide-complex tachycardia 04/28/2012 012 Overview: Presented to OSH 04/28/12 in setting acute ME with wide complex tachycardia SVT versus VT. Given adenosine x2 without effect, diltiazem bolus and infusion with no effect. Spontaneous conversion to NSR. Had short run of wide complex tachycardia upon arrival to [facility] from [facility]. Pre-op evaluation 04/28/2012 05/01/2012 Overview: Preoperative evaluation for CABG. Not ReDo -Carotids: Ordered -Vein Mapping: Ordered -Bedside PFTs: Ordered -Formal TTE: Ordered -CXR: Completed documented as of this encounter (statuses as of 12/03/2022) [facility] History of Past illness Narrative* Problem [...] 56, Troponin T .37 on admission to [facility] Wide-complex tachycardia 04/28/2012 012 Overview: Presented to OSH 04/28/12 in setting acute ME with wide complex tachycardia SVT versus VT. Given adenosine x2 without effect, diltiazem bolus and infusion with no effect. Spontaneous conversion to NSR. Had short run of wide complex tachycardia upon arrival to [facility] from [facility]. Pre-op evaluation 04/28/2012 05/01/2012 Overview: Preoperative evaluation for CABG. Not ReDo -Carotids: Ordered -Vein Mapping: Ordered -Bedside PFTs: Ordered -Formal TTE: Ordered -CXR: Completed documented as of this encounter (statuses as of 02/21/2023) [facility] History of Past illness Narrative* Problem [...] resolving Pf4 negative. Post-operative pain 05/01/2012 05/06/20 Overview: acceptable pain control with Percocet , ultram, lido patches ST elevation myocardial infa rction (STEMI) of true posterior wall 04/28/2012 05/05/2012 Overview: ST depressions in septal/anterior leads c/w posterior STEMI. TTE shows posterior wall motion abnormality. CKMB 56, Troponin T .37 on admission to [facility] Wide-complex tachycardia 04/28/2012 Overview: Presented to OSH 04/28/12 in setting acute ME with wide complex tachycardia SVT versus VT. Given adenosine x2 without effect, diltiazem bolus and infusion with no effect. Spontaneous conversion to NSR. Had short run of wide complex tachycardia upon arrival to [facility] from [facility]. Pre-op evaluation 04/28/2012 05/01/2012 Overview: Preoperative evaluation for CABG. Not ReDo -Carotids: Ordered -Vein Mapping: Ordered -Bedside PFTs: Ordered -Formal TTE: Ordered -CXR: Completed documented as of this encounter (statuses as of 04/27/2023) [facility] History of Past illness Narrative* Problem [...] resolving Pf4 negative. Post-operative pain 05/01/2012 05/06/20 Overview: acceptable pain control with Percocet , ultram, lido patches ST elevation myocardial infa rction (STEMI) of true posterior wall 04/28/2012 05/05/2012 Overview: ST depressions in septal/anterior leads c/w posterior STEMI. TTE shows posterior wall motion abnormality. CKMB 54, Troponin T .37 on admission to [facility] Wide-complex tachycardia 04/28/2012 Overview: Presented to OSH 04/28/12 in setting acute ME with wide complex tachycardia SVT versus VT. Given adenosine x2 without effect, diltiazem bolus and infusion with no effect. Spontaneous conversion to NSR. Had short run of wide complex tachycardia upon arrival to [facility] from [facility]. Pre-op evaluation 04/28/2012 05/01/2012 Overview: Preoperative evaluation for CABG. Not ReDo -Carotids: Ordered -Vein Mapping: Ordered -Bedside PFTs: Ordered -Formal TTE: Ordered -CXR: Completed documented as of this encounter (statuses as of 05/09/2023) [facility] History of Past illness Narrative* Problem [...] resolving Pf4 negative. Post-operative pain 05/01/2012 05/06/20 Overview: acceptable pain control with Percocet , ultram, lido patches ST elevation myocardial infa rction (STEMI) of true posterior wall 04/28/2012 05/05/2012 Overview: ST depressions in septal/anterior leads c/w posterior STEMI. TTE shows posterior wall motion abnormality. CKMB 54, Troponin T .37 on admission to [facility] Wide-complex tachycardia 04/28/2012 Overview: Presented to OSH 04/28/12 in setting acute ME with wide complex tachycardia SVT versus VT. Given adenosine x2 without effect, diltiazem bolus and infusion with no effect. Spontaneous conversion to NSR. Had short run of wide complex tachycardia upon arrival to [facility] from [facility]. Pre-op evaluation 04/28/2012 05/01/2012 Overview: Preoperative evaluation for CABG. Not ReDo -Carotids: Ordered -Vein Mapping: Ordered -Bedside PFTs: Ordered -Formal TTE: Ordered -CXR: Completed documented as of this encounter (statuses as of 08/23/2023) [facility]08-16-[facility] History of Past illness Narrative* Problem [...] resolving Pf4 negative. Post-operative pain 05/01/2012 05/06/20 Overview: acceptable pain control with Percocet , ultram, lido patches ST elevation myocardial infa rction (STEMI) of true posterior wall 04/28/2012 05/05/2012 Overview: ST depressions in septal/anterior leads c/w posterior STEMI. TTE shows posterior wall motion abnormality. CKMB 54, Troponin T .37 on admission to [facility] Wide-complex tachycardia 04/28/2012 Overview: Presented to [facility] 04/28/12 in setting acute ME with wide complex tachycardia SVT versus VT. Given adenosine x2 without effect, diltiazem bolus and infusion with no effect. Spontaneous conversion to NSR. Had short run of wide complex tachycardia upon arrival to [facility] from CICU. Pre-op evaluation 04/28/2012 05/01/2012 Overview: Preoperative evaluation for CABG. Not ReDo -Carotids: Ordered -Vein Mapping: Ordered -Bedside PFTs: Ordered -Formal TTE: Ordered -CXR: Completed documented as of this encounter (statuses as of 08/27/2023) [facility] Diagnosis Malignant neoplasm of prostate (HCC)- Primary Malignant neoplasm of prostate documented in this encounter [facility] Diagnosis Unspecified hypothyroidism- Primary Hypercholesterolemia Pure hypercholesterolemia Abnormal finding of blood chemistry, unspecified documented [facility] this encounter [facility] Diagnosis Malignant neoplasm of prostate (HCC)- Primary Malignant neoplasm of prostate documented [facility] Diagnosis Chronic systolic heart failure (HCC)- Primary Chronic systolic heart failure [facility] Diagnosis Mitral valve insufficiency, unspecified etiology- Primary Chronic systolic heart failure (HCC) Chronic systolic heart failure documented [facility] this encounter [facility] Diagnosis Bilateral carotid artery stenosis- Primary Occlusion and stenosis of carotid artery without mention of cerebral infarction [facility] Diagnosis Coronary artery disease involving [place] coronary artery of [place] heart without angina pectoris- Primary Heart [...] stenosis, asymptomatic, bilateral documented in this encounter [facility]* Diagnosis Chronic systolic heart failure (HCC)- Primary Chronic systolic heart failure Coronary artery disease involving [place] coronary artery of [place] heart without angina pectoris documented in this encounter [facility]* Diagnosis Malignant neoplasm of prostate (HCC)- Primary Malignant neoplasm of prostate documented [facility] this [facility]* Diagnosis Chronic systolic heart failure (HCC) Chronic systolic heart failure Coronary artery disease involving [place] coronary artery of [place] heart without angina pectoris documented in this encounter [facility]* Diagnosis Coronary artery disease involving [place] coronary artery of [place] heart without angina pectoris- Primary Heart failure, acute systolic (HCC) Acute systolic heart failure Preop testing Preoperative examination, unspecified Carotid stenosis, asymptomatic, bilateral Preoperative cardiovascular examination Pre-operative cardiovascular examination documented in this encounter [facility] note* Diagnosis 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 kidney disease, unspecified CKD stage, unspecified whether intermediate manager insulin use (HCC)- Primary PVD (peripheral vascular disease) (HCC) Peripheral vascular disease, unspecified Atherosclerotic heart disease of [place]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) documented in this encounter [facility] for referral (narrative)* Outpatient Procedure (Routine) - Authorized Specialty Diagnoses / Procedures Referred By Contac t Referred To [facility] Diagnoses Chronic systolic heart failure (HCC) Procedures ECHO ECHO TTC R-T 2D W/WOM-MODE COMPL SPEC&COLR D Andreas Del Cid MD [address] [place] [address] [address] Referral ID Status Reason Start Date Expiration Date Visits Requested Visits Authorized [id number] Authorized Auto-Generat ed Referral 06/06/2022 06/06/2023 1 1 * Outpatient Procedure (Routine) - Authorized Specialty Diagnoses / Procedures Referred By Contac t Referred To Contact [facility] Diagnoses Chronic systolic heart failure (HCC) Procedures ECG COMPLETE ECG ROUTINE ECG W/LEAST 12 LDS W/I&R Andreas Del Cid MD [address] [place] [address] [place] [id number] Referral ID Status Reason Start Date Expiration Date Visits Requested Visits Authorized [id number] Authorized Auto-Generat ed Referral 06/06/2022 06/06/2023 1 1 [facility] for referral (narrative)* Outpatient Procedure (Routine) - Authorized Specialty Diagnoses / Procedures [facility] Diagnoses Bilateral carotid artery stenosis Procedures US CAROTID ARTERIES [facility] DUPLEX SCAN EXTRACRANIAL ART COMPL BI STUDY John Jefferson MD [id number] [place] [address] Referral ID Status Reason Start Date Expiration Date Visits Requested Visits Authorized [id number] Authorized Auto-Generat ed Referral 2 08/03/2023 1 1 [facility] for referral (narrative)* Diagnostic Procedure Only (Routine) - Pending Review Specialty Diagnoses / Procedures [facility] To [facility] Diagnoses Chronic systolic heart failure (HCC) Coronary artery disease involving [place] coronary artery of [place] heart without angina pectoris Procedures NM PET/CT CARDIAC VIABILITY MYOCRD IMG PET PRFUJ W/METAB 2RTRACER CNCRNT CT Andreas Del Cid MD [address] [place] [address] [facility] [address] [place] [address] Referral ID Status Reason Start Date Expiration Date Visits Requested Visits Authorized [id number] Pending Review Auto-Generat ed Referral 2 10/06/2023 1 1 * Diagnostic Procedure Only (Routine) - Pending Review Specialty Diagnoses / Procedures Referred By Jordon rao Referred To Contact [facility] Diagnoses Chronic systolic heart failure (HCC) Coronary artery disease involving [place] coronary artery of [place] heart without angina pectoris Procedures NM PET/CT CARDIAC PERF REST/STRESS MYOCRD IMG PET PRFUJ LOG HOOKER STD RST & [facility] Andreas Del Cid MD [address] [place] [address] [facility] [address] [place] [address] Referral ID Status Reason Start Date Expiration Date Visits Requested Visits Authorized [id number] Pending Review Auto-Generat ed Referral 2 10/06/2023 1 1 [facility] for referral (narrative)* Diagnostic Procedure Only (Routine) - Closed Specialty Diagnoses / Procedures Referred By Jordon rao Referred To Contact [facility] Diagnoses Chronic systolic heart failure (HCC) Coronary artery disease involving [place] coronary artery of [place] heart without angina pectoris Procedures NM PET/CT CARDIAC VIABILITY MYOCRD IMG PET PRFUJ W/METAB 2RTRACER [facility] Andreas Del Cid MD [address] [place] [address] [facility] [address] [place] [address] Referral ID Status Reason Start Date Expiration Date V isits Requested Visits Authorized [id number] Closed Auto-Generate d Referral 09/06/2022 10/06/2023 1 1 * Diagnostic Procedure Only (Routine) - Closed Specialty Diagnoses / Procedures Referred By Jordon t Referred To Contact [facility] Diagnoses Chronic systolic heart failure (HCC) Coronary artery disease involving [place] coronary artery of [place] heart without angina pectoris Procedures NM PET/CT CARDIAC PERF REST/STRESS MYOCRD IMG PET PRFUJ LOG HOOKER STD RST & STRS CNCRNT CT Andreas Del Cid MD [address] [place] [address] [facility] [address] [place] [address] Referral ID Status Reason Start Date Expiration Date V isits Requested Visits Authorized [id number] Closed Auto-Generate d Referral 09/06/2022 10/06/2023 1 1 [facility] Summary Purpose Family History No Family History Records FoundNo Family History Records FoundNo Family History Records FoundNo Family History Records FoundNo Family History Records Found Advance Directives No Advanced Directives Records FoundDocuments on File Type Date Recorded Patient Data Control Assistant Expl anation Advance Directive(s) 03/24/2019 7:11 AM Additional Source Comments (unrecognized sect ion and content) No Status Records FoundNo Status Records FoundNo Status Records FoundNo Status Records FoundNo Status Records Found INFORMATION SOURCE (unrecogn ized section and content) DATE CREATED AUTHOR 07/29/2019 [facility] DATE CREATED AUTHOR AUTHOR'S ORGANIZ ATION 05/25/2022 [facility] DATE CREATED AUTHOR AUTHOR'S ORGANIZ ATION 07/29/2022 [facility] DATE CREATED AUTHOR AUTHOR'S ORGANIZ ATION 02/22/2023 [facility] DATE CREATED AUTHOR AUTHOR'S ORGANIZ ATION 09/27/2023 [facility] Source Comments (unrecognize d section and content) In the event this informatio n is protected by the Federal Confidentiality of Alcohol and Drug Abuse Patient Records regulations: The Federal rules restrict any use of the information to criminally investigate or prosecute any alcohol or drug abuse patient.[facility] the event this information is protected by the Federal Confidentiality of Alcohol and Drug Abuse Patient Records regulations: The Federal rules restrict any use of the information to criminally investigate or prosecute any alcohol or drug abuse patient.[facility] the event this information is protected by the Federal Confidentiality of Alcohol and Drug Abuse Patient Records regulations: The Federal rules restrict any use of the information to criminally investigate or prosecute any alcohol or drug abuse patient.[facility] the event this information is protected by the Federal Confidentiality of Alcohol and Drug Abuse Patient Records regulations: The Federal rules restrict any use of the information to criminally investigate or prosecute any alcohol or drug abuse patient.[facility] Hospital[facility] the event this information is protected by the Federal Confidentiality of Alcohol and Drug Abuse Patient Records regulations: The Federal rules restrict any use of the information to criminally investigate or prosecute any alcohol or drug abuse patient.[facility] Hospital[facility] the event this information is protected by the Federal Confidentiality of Alcohol and Drug Abuse Patient Records regulations: The Federal rules restrict any use of the information to criminally investigate or prosecute any alcohol or drug abuse patient.[facility] HospitalIn the event this information is protected by the Federal Confidentiality of Alcohol and Drug Abuse Patient Records regulations: The Federal rules restrict any use of the information to criminally investigate or prosecute any alcohol or drug abuse patient.[facility] HospitalIn the event this information is protected by the Federal Confidentiality of Alcohol and Drug Abuse Patient Records regulations: The Federal rules restrict any use of the information to criminally investigate or prosecute any alcohol or drug abuse patient.[facility] the event this information is protected by the Federal Confidentiality of Alcohol and Drug Abuse Patient Records regulations: The Federal rules restrict any use of the information to criminally investigate or prosecute any alcohol or drug abuse patient.[facility] HospitalIn the event this information is protected by the Federal Confidentiality of Alcohol and Drug Abuse Patient Records regulations: The Federal rules restrict any use of the information to criminally investigate or prosecute any alcohol or drug abuse patient.[facility] HospitalIn the event this information is protected by the Federal Confidentiality of Alcohol and Drug Abuse Patient Records regulations: The Federal rules restrict any use of the information to criminally investigate or prosecute any alcohol or drug abuse patient.[facility] HospitalIn the event this information is protected by the Federal Confidentiality of Alcohol and Drug Abuse Patient Records regulations: The Federal rules restrict any use of the information to criminally investigate or prosecute any alcohol or drug abuse patient.[facility] HospitalIn the event this information is protected by the Federal Confidentiality of Alcohol and Drug Abuse Patient Records regulations: The Federal rules restrict any use of the information to criminally investigate or prosecute any alcohol or drug abuse patient.[facility] HospitalIn the event this information is protected by the Federal Confidentiality of Alcohol and Drug Abuse Patient Records regulations: The Federal rules restrict any use of the information to criminally investigate or prosecute any alcohol or drug abuse patient.[facility] HospitalIn the event this information is protected by the Federal Confidentiality of Alcohol and Drug Abuse Patient Records regulations: The Federal rules restrict any use of the information to criminally investigate or prosecute any alcohol or drug abuse patient.[facility] HospitalIn the event this information is protected by the Federal Confidentiality of Alcohol and Drug Abuse Patient Records regulations: The Federal rules restrict any use of the information to criminally investigate or prosecute any alcohol or drug abuse patient.[facility] HospitalIn the event this information is protected by the Federal Confidentiality of Alcohol and Drug Abuse Patient Records regulations: The Federal rules restrict any use of the information to criminally investigate or prosecute any alcohol or drug abuse patient.[facility] HospitalIn the event this information is protected by the Federal Confidentiality of Alcohol and Drug Abuse Patient Records regulations: The Federal rules restrict any use of the information to criminally investigate or prosecute any alcohol or drug abuse patient.[facility] HospitalIn the event this information is protected by the Federal Confidentiality of Alcohol and Drug Abuse Patient Records regulations: The Federal rules restrict any use of the information to criminally investigate or prosecute any alcohol or drug abuse patient.[facility] HospitalIn the event this information is protected by the Federal Confidentiality of Alcohol and Drug Abuse Patient Records regulations: The Federal rules restrict any use of the information to criminally investigate or prosecute any alcohol or drug abuse patient.[facility] HospitalIn the event this information is protected by the Federal Confidentiality of Alcohol and Drug Abuse Patient Records regulations: The Federal rules restrict any use of the information to criminally investigate or prosecute any alcohol or drug abuse patient.[facility] HospitalIn the event this information is protected by the Federal Confidentiality of Alcohol and Drug Abuse Patient Records regulations: The Federal rules restrict any use of the information to criminally investigate or prosecute any alcohol or drug abuse patient.[facility] HospitalIn the event this information is protected by the Federal Confidentiality of Alcohol and Drug Abuse Patient Records regulations: The Federal rules restrict any use of the information to criminally investigate or prosecute any alcohol or drug abuse patient.[facility] HospitalIn the event this information is protected by the Federal Confidentiality of Alcohol and Drug Abuse Patient Records regulations: The Federal rules restrict any use of the information to criminally investigate or prosecute any alcohol or drug abuse patient.[facility] HospitalIn the event this information is protected by the Federal Confidentiality of Alcohol and Drug Abuse Patient Records regulations: The Federal rules restrict any use of the information to criminally investigate or prosecute any alcohol or drug abuse patient.[facility] HospitalIn the event this information is protected by the Federal Confidentiality of Alcohol and Drug Abuse Patient Records regulations: The Federal rules restrict any use of the information to criminally investigate or prosecute any alcohol or drug abuse patient.[facility] HospitalIn the event this information is protected by the Federal Confidentiality of Alcohol and Drug Abuse Patient Records regulations: The Federal rules restrict any use of the information to criminally investigate or prosecute any alcohol or drug abuse patient.[facility] HospitalIn the event this information is protected by the Federal Confidentiality of Alcohol and Drug Abuse Patient Records regulations: The Federal rules restrict any use of the information to criminally investigate or prosecute any alcohol or drug abuse patient.[facility] HospitalIn the event this information is protected by the Federal Confidentiality of Alcohol and Drug Abuse Patient Records regulations: The Federal rules restrict any use of the information to criminally investigate or prosecute any alcohol or drug abuse patient.[facility] HospitalIn the event this information is protected by the Federal Confidentiality of Alcohol and Drug Abuse Patient Records regulations: The Federal rules restrict any use of the information to criminally investigate or prosecute any alcohol or drug abuse patient.[facility] HospitalIn the event this information is protected by the Federal Confidentiality of Alcohol and Drug Abuse Patient Records regulations: The Federal rules restrict any use of the information to criminally investigate or prosecute any alcohol or drug abuse patient.[facility] Reason for Visit (unrecogniz ed section and content) Reason Comments Radiotherapy On-treatment Visit Reason Comments Prostate Cancer Reason Comments Appointment Reason Comments Received Outside Medical Records Reason Comments Consult Reason Comments Radiology NM Specialty Diagnoses / Procedures Referred By Contac t Referred To Contact [facility] Diagnoses Chronic systolic heart failure (HCC) Coronary artery disease involving [place] coronary artery of [place] heart without angina pectoris Procedures NM PET/CT CARDIAC PERF REST/STRESS MYOCRD IMG PET PRFUJ LOG HOOKER STD RST & STRS CNCRNT CT Andreas Del Cid MD [address] [place] [address] [facility] Functional [facility] [address] [place] [address] Referral ID Status Reason Start Date Expiration Date V isits Requested Visits Authorized [id number] Closed Auto-Generate d Referral 09/06/2022 10/06/2023 1 1 Reason Comments Surgery Cancelled Reason Comments Nm Pet Request Reason Onset Date Comments Refill Request 08/22/2023 Reason Comments Appointment Left a message with the patient regarding the cancellation of 10/22/2023 with . Informed the patient of the new scheduled appointment on 10/29/2023 with . Care Teams (unrecognized sec tion and content) Slab Conditioner Supervisor Relationship Specialty Start Date End Date Francisca Thompson MD PCP - General Family Practice 05/30/12 Tom Gonzalez [address] [place] [address] Primary Staff Physician Cardiology 12/02/18 Slab Conditioner Supervisor Relationship Specialty Start Date End Date Francisca Thompson MD PCP - [facility] 05/30/12 Tom Gonzalez [address] [place] [address] Primary Staff Physician Cardiology 12/02/18 Slab Conditioner Supervisor Relationship Specialty Start Date End Date Francisca Thompson MD PCP - General Family Practice 05/30/12 Tom Gonzalez Vagesh [address] [place] [address] Primary Staff Physician Cardiology 12/02/18 Slab Conditioner Supervisor Relationship Specialty Start Date End Date Francisca Thompson MD PCP - General Family Practice 05/30/12 [facility] Tom Vagesh [address] [place] [address] Primary Staff Physician Cardiology 12/02/18 Slab Conditioner Supervisor Relationship Specialty Start Date End Date Francisca Thompson MD PCP - General Family Practice 05/30/12 FelixmireyaYulietTom Vagesh [address] [place] [address] Primary Staff Physician Cardiology 12/02/18 Slab Conditioner Supervisor Relationship Specialty Start Date End Date Francisca Thompson MD PCP - General Family Practice 05/30/12 Felixmireya, Tom Vagesh [address] [facility] [address] Primary Staff Physician Cardiology 12/02/18 Slab Conditioner Supervisor Relationship Specialty Start Date End Date Francisca Thompson MD PCP - General Family Medicine 05/30/12 Felixmireya Tom Vagesh [address] [place] [address] Primary Staff Physician Cardiology 12/02/18 Slab Conditioner Supervisor Relationship Specialty Start Date End Date Francisca Thompson MD PCP - General Family Medicine 05/30/12 Felixmireya, Tom Vagesh [address] [place] [address] Primary Staff Physician Cardiology 12/02/18 Slab Conditioner Supervisor Relationship Specialty Start Date End Date Francisca Thompson MD PCP - General Family Medicine 05/30/12 [facility] Tom Vagesh [address] [place] [address] Primary Staff Physician Cardiology 12/02/18 Slab Conditioner Supervisor Relationship Specialty Start Date End Date Francisca Thompson MD PCP - General Family Medicine 05/30/12 [facility], Tom Vagesh [address] [place] [address] Primary Staff Physician Cardiology 12/02/18 Slab Conditioner Supervisor Relationship Specialty Start Date End Date Francisca Thompson MD PCP - General Family Medicine 05/30/12 [place], Tom Vagesh [address] [place] [address] Primary Staff Physician Cardiology 12/02/18 Slab Conditioner Supervisor Relationship Specialty Start Date End Date Francisca Thompson MD PCP - General Family Medicine 05/30/12 Tom Gonzalez Vagesh [address] [place] [address] Primary Staff Physician Cardiology 12/02/18 Slab Conditioner Supervisor Relationship Specialty Start Date End Date Francisca Thompson MD PCP - General Family Medicine 05/30/12 [place], Tom Vagesh [address] [place] [address] Primary Staff Physician Cardiology 12/02/18 Slab Conditioner Supervisor Relationship Specialty Start Date End Date Francisca Thompson MD PCP - General Family Medicine 05/30/12 Felixmireya, Tom Vagesh [address] [place] [address] Primary Staff Physician Cardiology 12/02/18 Slab Conditioner Supervisor Relationship Specialty Start Date End Date Francisca Thompson MD PCP - General Family Medicine 05/30/12 [facility] Tom Vagesh [address] [place] [address] Primary Staff Physician Cardiology 12/02/18 Slab Conditioner Supervisor Relationship Specialty Start Date End Date Francisca Thompson MD PCP - General Family Medicine 05/30/12 Carlos, Tom Vagesh [address] [place] [address] Primary Staff Physician Cardiology 12/02/18 Slab Conditioner Supervisor Relationship Specialty Start Date End Date Francisca Thompson MD PCP - General Family Medicine 05/30/12 Tom Gonzalez Vagesh [address] [place] [address] Primary Staff Physician Cardiology 12/02/18 Slab Conditioner Supervisor Relationship Specialty Start Date End Date Francisca Thompson MD PCP - General Family Medicine 05/30/12 Tom Gonzalez Vagesh [address] [place] [address] Primary Staff Physician Cardiology 12/02/18 Slab Conditioner Supervisor Relationship Specialty Start Date End Date Francisca Thompson MD PCP - General Family Medicine 05/30/12 Tom Gonzalez Vagesh [address] [place] [address] Primary Staff Physician Cardiology 12/02/18 Slab Conditioner Supervisor Relationship Specialty Start Date End Date Francisca Thompson MD PCP - General Family Medicine 05/30/12 Tom Gonzalez [address] [place] [address] Primary Staff Physician Cardiology 12/02/18 Andreas Del Cid MD [address] [place] [address] Primary Staff Physician Cardiology 04/26/23 Slab Conditioner Supervisor Relationship Specialty Start Date End Date Francisca Thompson MD PCP - General Family Medicine 05/30/12 Tom Gonzalez [address] [place] [address] Primary Staff Physician Cardiology 12/02/18 Andreas Del Cid MD [address] [place], [place] [id number] Primary Staff Physician Cardiology 04/26/23 Slab Conditioner Supervisor Relationship Specialty Start Date End Date Francisca Thompson MD PCP - General Family Medicine 05/30/12 Tom Gonzalez [address] [place] [address] Primary Staff Physician Cardiology 12/02/18 Andreas Del Cid MD [address] [place] [address] Primary Staff Physician Cardiology 04/26/23 Slab Conditioner Supervisor Relationship Specialty Start Date End Date Francisca Thompson MD PCP - General Family Medicine 05/30/12 Tom Gonzalez [address] [place] [address] Primary Staff Physician Cardiology 12/02/18 Andreas Del Cid MD [address] [place], [place] [id number] Primary Staff Physician Cardiology 04/26/23 FOR RECORDS [...] BE BASED ON THE PRIMARY CLINICAL RECORDS. [employer] provides no warranty or guarantee of the accuracy or completeness of information in this document.
--- NOTE | 2023-09-27 08:03 | ECG_ITS ---
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1940 Requested By: FRANCISCA THOMPSON Order Number: [id number] Reading MD: FRANCISCA THOMPSON Measurements Intervals [place] Rate: 72 P: 240 [place]: 156 QRS: -1 QRSD: 116 T: 73 QT: 416 QTc: 440 Interpretive Statements 1220 Rapid atrial rhythm 1570 with occasional ventricular premature complexes 2320 Nonspecific intraventricular conduction delay 8102 Low QRS voltage in chest leads 9140 abnormal rhythm ECG Compared to ECG 09/26/2023 18:07:19 Intraventricular conduction delay now present Sinus rhythm no longer present Myocardial infarct finding no longer present Electronically Signed On 09-30-2023 6:46:19 EST by FRANCISCA THOMPSON
--- NOTE | 2023-09-27 08:06 | P.HP_ITS ---
H&P: HPI History of Present Illness Chief complaint: ABNORMAL LABS Narrative: Patient who is well-known to me from the office, describes some increasing shortness of breath and labs were obtained. He has had a significantly elevated BNP so was referred to the emergency room. In the emergency room had a signifi cantly elevated troponin. Case was discussed with outside cardiology who recommended transfer but no bed was available at that time. Patient is also seeing [facility]. I discussed the case with [facility] this morning and they agreed to accept patient in transfer Review of Systems ROS Status of ROS 10 or more systems reviewed and unremark able except as noted in history and below [facility] Social History Highest level of school completed/degree received: some college, no degree Meds Home Medications and Allergies Home Medications Medication Instructions Recorded Confirmed Type atorvastatin 40 mg tablet 40 mg PO DAILY 09/26/23 09/26/23 History ferrous sulfate 325 mg (65 mg 325 mg PO DAILY 09/26/23 09/26/23 History iron) tablet (Feosol) lisinopril 5 mg tablet 5 mg PO DAILY 09/26/23 09/26/23 History metoprolol succinate 25 mg 25 mg PO DAILY 09/26/23 09/26/23 History tablet,extended release 24 hr thyroid (pork) 15 mg tablet (FRONT DESK ADMINISTRATOR 15 mg PO DAILY 09/26/23 09/27/23 History Thyroid) dapagliflozin propanediol 5 mg 5 mg PO QAM 09/27/23 09/27/23 History tablet (Farxiga) ezetimibe 10 mg tablet 10 mg PO DAILY 09/27/23 09/27/23 History thyroid (pork) 60 mg tablet (FRONT DESK ADMINISTRATOR 60 mg PO DAILY 09/27/23 09/27/23 History Thyroid) Allergies Allergy/AdvReac Type Severity Reaction Status Date / Time latex Allergy Severe Verified 09/26/23 18:05 Exam Constitutional Vital Signs, click to edit/add: Last Vital Signs Temp 98.5 F 09/27/23 06:49 Pulse 81 09/27/23 07:16 Resp 19 09/27/23 07:16 BP 132/78 09/27/23 07:16 Pulse Ox 93 L 09/27/23 07:16 O2 Del Method Room Air 09/27/23 06:49 Documenting provider has reviewed patient's vital signs: yes Common normals: no apparent distress Chest Common normals: inspection of chest normal Respiratory Common normals: normal respiratory effort, no retractions and clear to auscultation bilaterally Cardio Common normals: regular rate and regular rhythm Extremity Common normals: abnormal to inspection (Just trace edema) Results Labs Labs: [facility] 09/27/23 05:13 Sodium 136 Potassium 3.8 Chloride 104 Carbon Dioxide 27.9 BUN 39.0 H Creatinine 2.26 H Glucose 103 Calcium 9.5 Assessment and Plan Assessment and Plan (1) Non-sustained ventricular tachycardia: (2) Elevated troponin: (3) CHF (congestive heart failure): Plan Elevated high-sensitivity troponin, elevated BNP, nonsustained ventricular tachycardia with failed firing of internal defibrillator, minimal ST elevation in V1 and V2-discussed case with [facility] Dr. March, agreed except patient transfer for patient to go straight to the Inside Sales Engineer. Only issue may be is elevated creatinine after being given 80 of Lasix. I do not believe he is in fulminant acute combined congestive heart failure with only trace edema and lungs are clear. Start patient on heparin drip and amiodarone orally after being given IV dose of amiodarone for nonsustained ventricular tachycardia Mild acute combined congestive heart failure-no further treatment necessary at this time Acute kidney injury secondary to diuresis-IV fluids and monitoring at [facility] Urgent transfer to [facility] cardiac Inside Sales Engineer for urgent cardiac cath
--- NOTE | 2023-09-27 08:37 | ECG_ITS ---
[facility] Test Date: 2023-09-27 Pat Name: LANDEN ROTH Department: Room: [facility] Gender: Male Manager Acute: : 1940 Requested By: FRANCISCA THOMPSON Order Number: [id number] Reading MD: FRANCISCA THOMPSON Measurements Intervals [place] Rate: 79 P: 270 [place]: 168 QRS: 6 QRSD: 116 T: 56 QT: 402 QTc: 437 Interpretive Statements 1220 Rapid atrial rhythm 1577 with couplet ventricular premature complexes 3334 Anterolateral myocardial infarction, age undetermined 9150 abnormal ECG Compared to ECG 09/27/2023 08:03:52 Myocardial infarct finding now present Intraventricular conduction delay no longer present Electronically Signed On 09-30-2023 6:46:27 EST by FRANCISCA THOMPSON
[2023-09-27] MEDS: HEPARIN SODIUM,PORCINE/D5W 25,000 UNIT/500 ML IV.SOLN 19.68 UNIT IV (08:38)
[2023-09-27] MEDS: HEPARIN SODIUM (PORCINE) 5,000 UNIT/ML VIAL 2700 UNIT IV (08:42)
[2023-09-27] MEDS: METOPROLOL SUCCINATE 25 MG TAB.ER.24H PO (09:25)
[2023-09-27] MEDS: AMIODARONE HCL 200 MG TABLET 400 MG PO (09:25)
[2023-09-27] MEDS: LISINOPRIL 5 MG TABLET PO (09:26)
--- NOTE | 2023-09-27 09:37 | CM.NOTE ---
Rounds made with Dr. Serrano. Plan is for transfer to a Tertiary Facility. Dr. Serrano discussed [facility] is currently full and they may not have a bed for quite sometime. Dr. Serrano inquired if Mr. Antonio would go to [facility] as he has also see a physician in their Cardiology group. Mr. Antonio would like to see what his daughter thinks and will let Dr. Serrano know if he will go to [facility].
[2023-09-27 09:49] LABS: INR 1.21; Prothrombin Time 12.7 sec (9.0-11.6)
[2023-09-27 09:51] LABS: Partial Thromboplastin Time 109.9 sec (22.3-36.2)
[2023-09-27] MEDS: 0.9 % SODIUM CHLORIDE 1,000 ML 100 ML IV (10:12)
--- NOTE | 2023-09-27 11:10 | PC.NURSE ---
Patient was transferred to [facility] for heart cath. Belonging were given to patient family member. Transported by [facility]. [facility] bed management was notified that patient left at 1055. Report was called to [phone]. Patient left with no s/s of distress noted at this time.
== END 2023-09-27 10:55 | disposition short-term general hospital (02) | DRG 280 ==
LOC: ER 21:26 → ICU 09-27 06:48
PROVIDERS: Physician Assistant; Admitting Provider Family Medicine; Emergency Provider Emergency Medicine; PCP Family Medicine; Visit Provider Family Medicine
DX: I21.4 Non-ST elevation (NSTEMI) myocardial infarction (principal); I50.41 Acute combined systolic (congestive) and diastolic (congestive) heart failure; I47.20 Ventricular tachycardia, unspecified; N17.9 Acute kidney failure, unspecified; R79.89 Other specified abnormal findings of blood chemistry; R94.4 Abnormal results of kidney function studies; R06.02 Shortness of breath; T50.1X6A Underdosing of loop [high-ceiling] diuretics, initial encounter; Z91.128 Patient's intentional underdosing of medication regimen for other reason; Z95.810 Presence of automatic (implantable) cardiac defibrillator; Z79.84 Long term (current) use of oral hypoglycemic drugs; Z79.890 Hormone replacement therapy; Z79.899 Other long term (current) drug therapy; Z91.040 Latex allergy status
CPT/HCPCS: 36415; 71045; 80048; 80053; 82525; 83735; 83880; 84484; 85025; 85610; 85730; 87420; 87635; 87804; 87811; 93005; 96365; 96375; 99285; J0283; J1644; J1940; J3475

== ENCOUNTER 2023-10-09 15:10 | Outpatient (OUT) | payer MEDICARE, OTHER, SELFPAY ==
--- OUTSIDE RECORDS SUMMARY | 2023-10-09 15:30 | XMS_ITS | CCD ---
Author Name Unknown Address [address] [facility] [address] [place] [address] Organization [facility] Care Team Providers Care Executive Kitchen Manager Name Role Phone Francisca Thompson MD Primary Care Provider [phone] Tom Gonzalez Unavailable [phone] SHARON HOOKS Referring Unavailable MARLENE KRISHNA Attending Unavailable NORMA ARORA Admitting Unavailable FRANCISCA THOMPSON Primary Care Unavailable Francisca Thompson MD Primary Care Provider [phone] Tom Gonzalez Unavailable [phone] Francisca Thompson MD Primary Care Provider [phone] Tom Gonzalez Unavailable [phone] DR FRANCISCA AYERS Primary Care Unavailable MALAIKA CRAIN Consulting Unavailable MALAIKA CRAIN Admitting Unavailable MALAIKA CRAIN Attending Unavailable DONNA ., DR ESPINOSA Primary Care Unavailable DONNA ., DR ESPINOSA Admitting Unavailable DONNA ., DR ESPINOSA Consulting Unavailable DONNA Qureshi, DR ESPINOSA Attending Unavailable SHARON VAZQUEZ Attending Unavailable DONNA Qureshi, DR ESPINOSA Primary Care Unavailable JIM, DR AYANA Poe Consulting Unavailable NEVA Qureshi, SHARON Admitting Unavailable LINDA JUNIOR Consulting Unavailable SHARON VAZQUEZ Consulting Unavailable ARVIND, DR LUTZ Consulting Unavailable ARVIND, DR LUTZ Attending Unavailable DONNA Quresih, DR ESPINOSA Primary Care Unavailable ARVIND, DR LUTZ Admitting Unavailable JIM, DR AYANA Poe Consulting Unavailable MISC, DR DURAN Admitting Unavailable MISC, DR DURAN Consulting Unavailable DONNA Qureshi, DR ESPINOSA Primary Care Unavailable MISC, DR DURAN Attending Unavailable DONNA Qureshi, DR ESPINOSA Primary Care Unavailable DONNA ., DR ESPINOSA Admitting Unavailable DONNA ., DR ESPINOSA Consulting Unavailable HOY ., [...] ESPINOSA Consulting Unavailable HOY ., DR ESPINOSA Admitting Unavailable HOY ., DR ESPINOSA Attending Unavailable MISC, DR DURAN Consulting Unavailable HOY ., DR ESPINOSA Primary Care Unavailable HOY ., DR ESPINOSA Admitting Unavailable HOY ., DR ESPINOSA Attending Unavailable HOY ., DR ESPINOSA Primary Care Unavailable MISC, DR DURAN Attending Unavailable MISC, DR DURAN Admitting Unavailable Andreas Del Cid MD Unavailable Tom Gonzalez Unavailable [phone] Andreas Del Cid MD Unavailable FRANCISCA THOMPSON Referring Unavailable MIKE, RAMA Admitting Unavailable CHANTELL HANI Attending Unavailable RICKY OBREGON Referring Unavailable ELTAHAWY, EHAB Referring Unavailable MIKE, RAMA Referring Unavailable FRANCISCA THOMPSON M Primary Care Unavailable Yung KIM Attending Unavailable ANDREAS DEL CID Referring Unavailable FRANCISCA THOMPSON Primary Care Unavailable ANDREAS DEL CID Referring [...] Care Unavailable ANDREAS DEL CID Attending Unavailable HOY, FRANCISCA M Primary Care Unavailable HOY, FRANCISCA M Referring Unavailable HOY, FRANCISCA M Primary Care Unavailable ALISON WELLER Attending Unavailable VIRGIL GARCIA Referring Unavailable HOY, FRANCISCA M Primary Care Unavailable Allergies Allergy Classification Reported Allergen(s) Allergy Type Date of Onset Reaction(s) Facility (20 sources) Adhesive Tape; Translations: [ADHESIVE TAPE (ROSINS)] Allergy to substance 06-16-2012 [facility] Work Phone: (20 sources) Latex; Translations: [LATEX] Drug Allergy 03-13-2019 [facility] (3 sources) Latex Drug allergy (disorder) 11-04-2013 [facility] Repository Medications Current Medications Medication Drug [...] 3 08/23/2023 08/22/2024 Active Start: 04-11-2021 End: 09-21-2022 take 1 tablet by mouth once daily [...] (8 sources) Androgen Receptor Inhibitor Start: 12-01-19 End: 06-06-20 22 take 1 tablet by [...] 15 mg oral tablet (20 sources) 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 0 [...] Classification Problem Date Documented Date Episodic/Chronic Acute and unspecified renal failure (3 sources) Acute kidney failure, unspecified; Translations: [ACUTE KIDNEY FAILURE UNSPECIFIED] Onset: 06-28-2022 Episodic Acute cerebrovascular disease (18 sources) Cerebrovascular accident; Translations: [Other cerebral infarction] Onset: 09-03-2022 Chronic Acute myocardial infarction (2 sources) Non-ST elevation (NSTEMI) myocardial infarction; Translations: [Non-ST elevation (NSTEMI) myocardial infarction] Onset: 09-27-2023 Chronic Cancer of prostate (20 sources) Malignant [...] Coronary atherosclerosis; Translations: [Atherosclerotic heart disease of [place] coronary artery without angina pectoris] Onset: 04-28-2012 [...] Classification Problem Date Documented Da te Episodic/Chronic Coronary atherosclerosis and other heart disease (3 [...] 05-15-2022 Episodic Other aftercare (1 source) Other manager terminal (current) drug therapy; Translations: [OTH CERTIFIED PROCEDURAL CODER CURRENT DRUG THERAPY] Onset: 05-18-2022 Episodic Other aftercare (1 source) care home (current) use of anticoagulants; Translations: [CERTIFIED PROCEDURAL CODER CURRNT USE ANTICOAGULANTS] Onset: 05-18-2022 Episodic Other circulatory disease (1 source) Personal history of transient ischemic attack (TIA), and cerebral infarction without residual deficits; Translations: [PERS HX TIA AND CI NO RESID DEFICIT] Onset: 07-10-2022 Episodic Other hematologic conditions (1 [...] Test Name Value Interpretation Reference Range Facility 36on 10-01-2023 36 DC to home on 2023 Spoke to on 10/01/2023 Refuses med rec, states he has everything and it was discussed at time of DC. Pt aware of follow up appt, he is calling [facility] to rescheudle if possible, does not want to travel to [place]. He will let us know Normal [facility] Documentationon 10-01-2023 Documentation [id number] Pramod Roth Larry 1940 M Date Provider Department Center 10/01/2023 [id number] CABAN [facility] HeartVAS Family History Problem Relation Age of Onset Coronary artery disease Father Coronary artery disease Brother Family Status - Relation Status Age at Father Brother Reason for Visit and Comments: HF inpatient satisfaction survey sent. [Other] Normal [facility] 30on 09-29-2023 30 Problem: Heart Failu re diagnosis knowledge deficit Goal: Patient will verbalize understanding of how heart failure affects the body Outcome: Progressing Goal: Patient will verbalize understanding of how other conditions affect the heart Outcome: Progressing Problem: Fluid retention/overload Goal: Patient will be able to identify signs and symptoms of fluid retention Outcome: Progressing Problem: Heart failure medication adherence Goal: Consistently take heart failure medication as prescribed Outcome: Progressing Problem: Insufficient exercise regimen Goal: Patient will engage in physical activity safely Outcome: Progressing Problem: Heart failure progression and care needs Goal: Patient will verbalize understanding of heart failure progression Outcome: Progressing Problem: Heart failure maintenance Goal: Patient will not experience any symptoms of shortness of breath or body swelling over the next 3 months Outcome: Progressing Problem: Cardiovascular - Adult Goal: Maintains optimal cardiac output and hemodynamic stability Outcome: Progressing Flowsheets (Taken 09/29/2023 0800) Maintains optimal cardiac output and hemodynamic stability: Monitor blood pressure and heart rate Monitor urine output and notify Licensed Independent Practitioner for values outside of normal range Assess for signs of decreased cardiac output Problem: Skin/Tissue Integrity - Adult Goal: Skin integrity remains intact Outcome: Progressing Flowsheets (Taken 09/29/2023799) Skin integrity remains intact: Monitor for areas of redness and/or skin breakdown Problem: Metabolic/Fluid and Electrolytes - Adult Goal: Electrolytes maintained within normal limits Outcome: Progressing Flowsheets (Taken 09/29/2023799) Electrolytes maintained within normal limits: Monitor labs and assess patient for signs and symptoms of electrolyte imbalances Administer electrolyte replacement as ordered Monitor response to electrolyte replacements, including repeat lab results as appropriate Goal: Hemodynamic stability and optimal renal function maintained Outcome: Progressing Flowsheets (Taken 09/29/2023799) Hemodynamic stability and optimal renal function maintained: Monitor labs and assess for signs and symptoms of volume excess or deficit Monitor intake, output and patient weight Problem: Hematologic - Adult Goal: Maintains hematologic stability Outcome: Progressing Flowsheets (Taken 09/29/2023799) Maintains hematologic stability: Assess for signs and symptoms of bleeding or hemorrhage Monitor labs for bleeding or clotting disorders Problem: Pain - Adult Goal: Verbalizes/displays adequate comfort level or baseline comfort level Outcome: Progressing Flowsheets (Taken 09/29/2023799) Verbalizes/displays adequate comfort level or baseline comfort level: Encourage patient to monitor pain and request assistance Assess pain using appropriate pain scale Administer analgesics based on type and severity of pain and evaluate response Implement non-pharmacological measures as appropriate and evaluate response Problem: Safety - Adult Goal: Free from fall injury Outcome: Progressing Flowsheets (Taken 09/29/2023944) Free from fall injury: Assess patient frequently for physical needs Identify cognitive and physical deficits and behaviors that affect risk of falls [place] fall precautions as indicated by assessment Educate patient/family on patient safety, including physical limitations Instruct patient to call for assistance with activity based on assessment Modify environment to reduce risk of injury Consider OT/PT consult to assist with strengthening/mobility Problem: Discharge Planning Goal: Discharge to home or other facility with appropriate resources Outcome: Progressing Flowsheets (Taken 09/29/2023799) Discharge to home or other facility with appropriate resources: Identify barriers to discharge with patient and caregiver Arrange for needed discharge resources and transportation as appropriate Identify discharge learning needs (meds, wound care, etc) Problem: Chronic Conditions and Co-morbidities Goal: Patient's chronic conditions and co-morbidity symptoms are monitored and maintained or improved Outcome: Progressing Flowsheets (Taken 09/29/2023799) Care Plan - Patient's Chronic Conditions and Co-Morbidity Symptoms are Monitored and Maintained or Improved: Monitor and assess patient's chronic conditions and comorbid symptoms for stability, deterioration, or improvement Collaborate with multidisciplinary team to address chronic and comorbid conditions and prevent exacerbation or deterioration Update acute care plan with appropriate goals if chronic or comorbid symptoms are exacerbated and prevent overall improvement and discharge The patient is Moderately Stable - Low risk of patient condition declining or worsening The patient's goals for the shift include (more content not included)... Normal [facility] ANTI-XA (HEPARIN LEVEL)on HEPARIN UNFRACTIONATED (U/ML) IN PPP BY CHROMOGENIC METHOD 0.51 IU/mL Normal 0.3-0.7 [facility] Comment on above: Result Comment: [place] roxaban and Apixaban will interfere with the anti Xa assay used to monitor UFH and LMWH. Performed By: #### L [id number] #### [facility] ([facility]) [address] [place] [address] HEPARIN UNFRACTIONATED (U/ML) IN PPP BY CHROMOGENIC METHOD 0.20 IU/mL Low 0.3-0.7 [facility] Comment on above: Result Comment: Padmini roxaban and Apixaban will interfere with the anti Xa assay used to monitor UFH and LMWH. Performed By: #### L [id number] #### [facility] ([facility]) [address] [place] [address] BASIC METABOLIC PANELon 09-16 Anion gap [Moles/Vol] 10 mmol/L Normal 7-20 [facility] Comment on above: Performed By: #### L [id number] #### [facility] [address] [place] [address] Calcium [Mass/Vol] 9.6 mg/dL Normal 8.6-10.3 [facility] Comment on above: Performed By: #### L [id number] #### [facility] ([facility]) [address] [place] [address] Chloride [Moles/Vol] 102 mmol/L Normal 98-107 [facility] Comment on above: Performed By: #### L [id number] #### [facility] ([facility] [address] [place] [address] CO2 [Moles/Vol] 27 mmol/L Normal 21-31 [facility] Comment on above: Performed By: #### L [id number] #### [facility] ([facility]) [address] [place] [address] Creatinine [Mass/Vol] 2.03 mg/dL High 0.70-1.30 [facility] Comment on above: Performed By: #### L [id number] #### [facility] ([facility]) [address] [place] [address] GLOMERULAR FILTRATION RATE ML/MIN/1.73 SQ M.PREDICTED 32.3 mL/min/1.73m*2 Low >60.0 [facility] Comment on above: Result Comment: [facility]???s estimated glomerular filtration rate (eGFR) will no longer include consideration of race in its calculation. The National Kidney Foundation???s eGFR Task Force developed new recommendations for [...] one group of individuals. Performed By: #### L [id number] #### [facility] ([facility]) [address] [place] [address] Glucose [Mass/Vol] 102 mg/dL High 70-100 [facility] Comment on above: Performed By: #### L [id number] #### [facility] ([facility] [address] [place] [address] Potassium [Moles/Vol] 3.9 mmol/L Normal 3.5-5.1 [facility] Comment on above: Performed By: #### L [id number] #### [facility] ([facility] [address] [place] [address] Sodium [Moles/Vol] 135 mmol/L Low 136-145 [facility] Comment on above: Performed By: #### L [id number] #### [facility] ([facility]) [address] [place] [address] Urea nitrogen [Mass/Vol] 37 mg/dL High 7-25 [facility] Comment on above: Performed By: #### L [id number] #### [facility] ([facility] [address] [place] [address] UREA NITROGEN/CREATININE (MASS RATIO) IN SER/PLAS 18.2 Normal [facility] Comment on above: Performed By: #### L [id number] #### [facility] ([facility]) [address] [place] [address] CBCon 09-29-2023 Erythrocyte distribution width (RBC) [Ratio] 15.0 % Normal 11.5-15.0 [facility] Comment on above: Performed By: #### L [id number] #### [facility] ([facility]) [address] [place] [address] ERYTHROCYTE MEAN CORPUSCULAR HEMOGLOBIN CONCENTRATION (G/DL) BY AUTOMATED 31.7 g/dL Low 32.0-35.0 [facility] Comment on above: Performed By: #### L [id number] #### [facility] ([facility]) [address] [place] [address] Hematocrit (Bld) [Volume fraction] 41.7 % Normal 39.0-55.0 [facility] Comment on above: Performed By: #### L [id number] #### [facility] [address] [place] [address] Hemoglobin (Bld) [Mass/Vol] 13.2 g/dL Normal 13.0-17.0 [facility] Comment on above: Performed By: #### L [id number] #### [facility] ([facility]) [address] [place] [address] MCH (RBC) [Entitic mass] 28.7 pg Normal 27.0-33.0 [facility] Comment on above: Performed By: #### L [id number] #### [facility] ([facility]) [address] [place] [address] MCV (RBC) [Entitic vol] 90.7 fL Normal 82.0-98.0 [facility] Comment on above: Performed By: #### L [id number] #### [facility] ([facility]) [address] [place] [address] PLATELETS (10*3/UL) IN BLOOD AUTOMATED COUNT 169 10*3/uL Normal 150-400 [facility] Comment on above: Performed By: #### L [id number] #### [facility] ([facility]) [address] [place] [address] RBC (Bld) [#/Vol] 4.60 10*6/uL Normal 4.20-5.70 [facility] Comment on above: Performed By: #### L [id number] #### [facility] ([facility]) [address] [place] [address] WBC (Bld) [#/Vol] 6.82 10*3/uL Normal 4.00-10.60 [facility] Comment on above: Performed By: #### L [id number] #### [facility] ([facility]) [address] [place] [address] MAGNESIUMon 09-29-2023 Magnesium [Mass/Vol] 2.0 mg/dL Normal 1.9-2.7 [facility] Comment on above: Performed By: #### L [id number] #### [facility] ([facility]) [address] [place] [address] PROTIME-INRon 09-29-2023 INR IN PPP BY COAGULATION ASSAY 1.20 High 0.90-1.10 [facility] Comment on above: Result Comment: [facility] CONDITION INR PROPHYLAXIS OF VENOUS THROMBOSIS 2-3 (HIGH-RISK SURGERY) TREATMENT OF VENOUS THROMBOSIS 2-3 TREATMENT OF PULMONARY EMBOLISM 2-3 PREVENTION OF SYSTEMIC EMBOLISM: 2-3 ACUTE MYOCARDIAL INFARCTION TISSUE HEART VALVES VALVULAR HEART DISEASE ATRIAL FIBRILLATION RECURRENT SYSTEMIC EMBOLISM MECHANICAL HEART VALVE 2.5-3.5 FROM: ORAL ANTICOAGULANTS. MECHANISM OF ACTION, CLINICAL EFFECTIVENESS, AND OPTIMAL THERAPEUTIC RANGE. CHEST 1995;108:231S-246S. Performed By: #### L [id number] #### [facility] ([employer]) [address] [place] [address] PROTHROMBIN TIME (PT) IN PPP BY COAGULATION ASSAY 15.2 Seconds High 12.3-14.8 [facility] Comment on above: Performed By: #### L [id number] #### [facility] ([employer]) [address] [place] [address] TROPONIN Ion 09-29-2023 Troponin I.cardiac [Mass/Vol] 0.25 ng/mL Critically high 0.00-0.04 [facility] Comment on above: Result Comment: M-ND EVIOUS CRITICAL RESULT Performed By: #### L [id number] #### [facility] ([facility]) [address] [place] [address] 30on 09-28-2023 30 The patient is Moder ately Stable - Low risk of patient condition declining or worsening The patient's goals for the shift include comfort The clinical goals for the shift include VSS Problem: Pain - Adult Goal: Verbalizes/displays adequate comfort level or baseline comfort level Outcome: Progressing Flowsheets (Taken 09/28/2023 1635 by Danita Redmond RN) Verbalizes/displays adequate comfort level or baseline comfort level: Encourage patient to monitor pain and request assistance Problem: Safety - Adult Goal: Free from fall injury Outcome: Progressing Flowsheets (Taken 09/28/2023 0856 by Danita Redmond RN) Free from fall injury: Assess patient frequently for physical needs Problem: Discharge Planning Goal: Discharge to home or other facility with appropriate resources Outcome: Progressing Flowsheets (Taken 09/28/2023856 by Danita Redmond RN) Discharge to home or other facility with appropriate resources: Identify barriers to discharge with patient and caregiver Problem: Chronic Conditions and Co-morbidities Goal: Patient's chronic conditions and co-morbidity symptoms are monitored and maintained or improved Outcome: Progressing Flowsheets (Taken 09/28/2023856 by Danita Redmond RN) Care Plan - Patient's Chronic Conditions and Co-Morbidity Symptoms are Monitored and Maintained or Improved: Monitor and assess patient's chronic conditions and comorbid symptoms for stability, deterioration, or improvement Update acute care plan with appropriate goals if chronic or comorbid symptoms are exacerbated and prevent overall improvement and discharge Collaborate with multidisciplinary team to address chronic and comorbid conditions and prevent exacerbation or deterioration Normal [facility] 30 The patient is Moder ately Stable - Low risk of patient condition declining or worsening The patient's goals for the shift include Comfort The clinical goals for the shift include VSS, safety Problem: Heart Failure diagnosis knowledge deficit Goal: Patient will verbalize understanding of how heart failure affects the body Outcome: Progressing Problem: Fluid retention/overload Goal: Patient will be able to identify signs and symptoms of fluid retention Outcome: Progressing Problem: Heart failure medication adherence Goal: Consistently take heart failure medication as prescribed Outcome: Progressing Normal [facility] ANTI-XA (HEPARIN LEVEL)on HEPARIN UNFRACTIONATED (U/ML) IN PPP BY CHROMOGENIC METHOD 0.23 IU/mL Low 0.3-0.7 [facility] Comment on above: Result Comment: Padmini roxaban and Apixaban will interfere with the anti Xa assay used to monitor UFH and LMWH. Performed By: #### L [id number] #### [facility] ([facility] [address] [place] [address] HEPARIN UNFRACTIONATED (U/ML) IN PPP BY CHROMOGENIC METHOD 0.55 IU/mL Normal 0.3-0.7 [facility] Comment on above: Result Comment: Padmini roxaban and Apixaban will interfere with the anti Xa assay used to monitor UFH and LMWH. Performed By: #### L [id number] #### [facility] ([facility] [address] [place] [address] HEPARIN UNFRACTIONATED (U/ML) IN PPP BY CHROMOGENIC METHOD 0.71 IU/mL High 0.3-0.7 [facility] Comment on above: Result Comment: [place] roxaban and Apixaban will interfere with the anti Xa assay used to monitor UFH and LMWH. Performed By: #### L [id number] #### [facility] ([facility]) [address] [place] [address] CBC WITH AUTO DIFFERENTIALon 09-28-2023 Basophils (Bld) [#/Vol] 0.04 10*3/uL Normal 0.00-0.20 [facility] Comment on above: Performed By: #### L [id number] #### [facility] ([facility]) [address] [place] [address] Basophils/100 WBC (Bld) 0.6 % Normal 0.0-1.0 [facility] Comment on above: Performed By: #### L [id number] #### [facility] ([facility]) [address] [place] [address] Eosinophils (Bld) [#/Vol] 0.30 10*3/uL Normal 0.00-0.50 [facility] Comment on above: Performed By: #### L [id number] #### [facility] ([facility]) [address] [place] [address] Eosinophils/100 WBC (Bld) 4.2 % Normal 0.0-6.0 [facility] Comment on above: Performed By: #### L [id number] #### [facility] ([facility]) [address] [place] [address] Erythrocyte distribution width (RBC) [Ratio] 15.4 % High 11.5-15.0 [facility] Comment on above: Performed By: #### L [id number] #### [facility] [address] [place] [address] ERYTHROCYTE MEAN CORPUSCULAR HEMOGLOBIN CONCENTRATION (G/DL) BY AUTOMATED 31.8 g/dL Low 32.0-35.0 [facility] Comment on above: Performed By: #### L [id number] #### [facility] ([facility]) [address] [place] [address] Hematocrit (Bld) [Volume fraction] 42.1 % Normal 39.0-55.0 [facility] Comment on above: Performed By: #### L [id number] #### [facility] ([facility]) [address] [place] [address] Hemoglobin (Bld) [Mass/Vol] 13.4 g/dL Normal 13.0-17.0 [facility] Comment on above: Performed By: #### L [id number] #### [facility] ([facility]) [address] [place] [address] Immature granulocytes (Bld) [#/Vol] 0.03 10*3/uL Normal 0.00-0.20 [facility] Comment on above: Performed By: #### L [id number] #### [facility] ([facility] [address] [place] [address] Immature granulocytes/100 WBC (Bld) 0.4 % Normal 0.0-1.0 [facility] Comment on above: Performed By: #### L [id number] #### [facility] (BEAKER) [address] [place] [address] Lymphocytes (Bld) [#/Vol] 1.37 10*3/uL Normal 1.20-4.00 [facility] Comment on above: Performed By: #### L [id number] #### [facility] (BEAKER) [address] [place] [place] [address] Lymphocytes/100 WBC (Bld) 19.2 % Low 20.0-45.0 [facility] Comment on above: Performed By: #### L [id number] #### [facility] (BEAKER) [address] [place] [place] [address] MCH (RBC) [Entitic mass] 29.2 pg Normal 27.0-33.0 [facility] Comment on above: Performed By: #### L [id number] #### [facility] ([facility] [address] [place] [address] MCV (RBC) [Entitic vol] 91.7 fL Normal 82.0-98.0 [facility] Comment on above: Performed By: #### L [id number] #### [facility] ([facility]) [address] [place] [address] Monocytes (Bld) [#/Vol] 0.69 10*3/uL Normal 0.10-1.00 [facility] Comment on above: Performed By: #### L [id number] #### [facility] ([facility]) [address] [place] [address] Monocytes/100 WBC (Bld) 9.7 % Normal 5.0-12.0 [facility] Comment on above: Performed By: #### L [id number] #### [facility] ([facility]) [address] [place] [address] Neutrophils (Bld) [#/Vol] 4.70 10*3/uL Normal 1.60-7.60 [facility] Comment on above: Performed By: #### L [id number] #### [facility] ([facility]) [address] [place] [address] Neutrophils/100 WBC (Bld) 65.9 % Normal 40.0-72.0 [facility] Comment on above: Performed By: #### L [id number] #### [facility] ([facility]) [address] [place] [address] NRBC (PER 100 WBCS) BY AUTOMATED COUNT 0.0 % Normal 0 [facility] Comment on above: Performed By: #### L [id number] #### [facility] (BEAKER) [address] [place] [address] PLATELETS (10*3/UL) IN BLOOD AUTOMATED COUNT 178 10*3/uL Normal 150-400 [facility] Comment on above: Performed By: #### L [id number] #### [facility] ([facility]) [address] [place] [address] RBC (Bld) [#/Vol] 4.59 10*6/uL Normal 4.20-5.70 [facility] Comment on above: Performed By: #### L [id number] #### [facility] ([facility]) [address] [place] [address] WBC (Bld) [#/Vol] 7.13 10*3/uL Normal 4.00-10.60 [facility] Comment on above: Performed By: #### L [id number] #### [facility] ([facility]) [address] [place] [address] COMPREHENSIVE METABOLIC PANE Aldo 09-28-2023 Albumin [Mass/Vol] 4.1 g/dL Normal 3.5-5.7 [facility] Comment on above: Performed By: #### L [id number] #### [facility] ([facility]) [address] [place] [address] ALP [Catalytic activity/Vol] 84 U/L Normal 34-104 [facility] Comment on above: Performed By: #### L [id number] #### [facility] ([facility]) [address] [place] [address] ALT [Catalytic activity/Vol] 11 U/L Normal 7-52 [facility] Comment on above: Performed By: #### L [id number] #### [facility] ([facility]) [address] [place] [address] Anion gap [Moles/Vol] 16 mmol/L Normal 7-20 [facility] Comment on above: Performed By: #### L [id number] #### [facility] ([facility]) [address] [place] [address] AST [Catalytic activity/Vol] 20 U/L Normal 13-39 [facility] Comment on above: Performed By: #### L [id number] #### [facility] (BEAKER) [address] [place] [address] Bilirubin [Mass/Vol] 1.0 mg/dL Normal 0.3-1.0 [facility] Comment on above: Performed By: #### L [id number] #### [facility] (BEAKER) [address] [place] [address] Calcium [Mass/Vol] 10.0 mg/dL Normal 8.6-10.3 [facility] Comment on above: Performed By: #### L [id number] #### [facility] (BEAKER) [address] [place] [address] Chloride [Moles/Vol] 104 mmol/L Normal 98-107 [facility] Comment on above: Performed By: #### L [id number] #### [facility] (BEAKER) [address] [place] [address] CO2 [Moles/Vol] 22 mmol/L Normal 21-31 [facility] Comment on above: Performed By: #### L [id number] #### [facility] (BEAKER) [address] [place] [address] Creatinine [Mass/Vol] 2.06 mg/dL High 0.70-1.30 [facility] Comment on above: Performed By: #### L [id number] #### [facility] ([facility]) [address] [place] [address] GLOMERULAR FILTRATION RATE ML/MIN/1.73 SQ M.PREDICTED 31.8 mL/min/1.73m*2 Low >60.0 [facility] Comment on above: Result Comment: The [facility]???s estimated glomerular filtration rate (eGFR) will no longer include consideration of race in its calculation. The National Kidney Foundation???s eGFR Task Force developed new recommendations for [...] one group of individuals. Performed By: #### L [id number] #### [facility] ([facility]) [address] [place] [address] Glucose [Mass/Vol] 93 mg/dL Normal 70-100 [facility] Comment on above: Performed By: #### L [id number] #### [facility] ([facility]) [address] [place] [address] Potassium [Moles/Vol] 4.2 mmol/L Normal 3.5-5.1 [facility] Comment on above: Performed By: #### L [id number] #### [facility] ([facility]) [address] [place] [address] Protein [Mass/Vol] 7.1 g/dL Normal 6.0-8.3 [facility] Comment on above: Performed By: #### L [id number] #### [facility] ([facility]) [address] [place] [address] Sodium [Moles/Vol] 138 mmol/L Normal 136-145 [facility] Comment on above: Performed By: #### L [id number] #### [facility] ([facility]) [address] [place] [address] Urea nitrogen [Mass/Vol] 35 mg/dL High 7-25 [facility] Comment on above: Performed By: #### L [id number] #### [facility] ([facility]) [address] [place] [address] UREA NITROGEN/CREATININE (MASS RATIO) IN SER/PLAS 17.0 Normal [facility] Comment on above: Performed By: #### L [id number] #### [facility] ([facility]) [address] [place] [address] CONSULTon 09-28-2023 CONSULT ------- Attestation signed by Leslye Dior MD at 09/28/2023 2:06 PM By using the attestations below, the signing clinician agrees that I have read and verify that the documentation has been personally reviewed by me and ensure that the documentation accurately reflects the encounter. GC: I personally saw this patient on the day of the encounter, performed the boss portion(s) of the service and participated in the management and confirm the resident's documentation. Please note there may be an additional personal documentation from me. Nephrology Consult Note Patient : José Miguel Roth; 83 y.o. Location: [id number] Attending: Sam Agosto MD Admit Date: 09/27/2023 Hospital Day: 1 Reason for Consult: Acute kidney injury. History of Present Illness: José Miguel Roth is a 83 y.o. male patient with PMH of CKD stage 3b (baseline creatinine 1.4-1.6), CAD s/p CABGx3 in 2005, ischemic cardiomyopathy, HFrEF 20-25%. Patient was transferred from [facility] due to concerns for ACS, where he initially presented with complaints of shortness of breath and elevated BNP (in 5000). Workup showed evidence of MYLES with creatinine of 2.8 on initial presentation. Nephrology was consulted for MYLES with potential plans of cardiac cath. Upon my evaluation, patient was sitting comfortably in his bed. He endorsed feeling much better. He denied any fever, chills, chest pain, nausea and vomiting. He was not in respiratory distress and he was saturating well on room air. Review of Systems: Review of Systems Constitutional: Negative for chills, fever and unexpected weight change. HENT: Negative for mouth sores, sore throat and trouble swallowing. Eyes: Negative for pain and discharge. Respiratory: Negative for cough, chest tightness and shortness of breath. Cardiovascular: Negative for chest pain, palpitations and leg swelling. Gastrointestinal: Negative for abdominal pain, nausea and vomiting. Endocrine: Negative for cold intolerance and heat intolerance. Genitourinary: Negative for dysuria, frequency and hematuria. Musculoskeletal: Negative for arthralgias and back pain. Skin: Negative for rash and wound. Neurological: Negative for weakness, numbness and headaches. Psychiatric/Behavioral: Negative for confusion and hallucinations. Input/Output: I/O last 3 completed shifts: In: 330.4 (4.2 mL/kg) [P.O.:200; I.V.:130.4 (1.6 mL/kg)] Out: 1900 (23.9 mL/kg) [Urine:1900 (0.7 mL/kg/hr)] Weight: 79.4 kg Vital Signs: Temperature: Temp: 37 ???C (98.6 ???F) TMax: Temp (24hrs), Av.6 ???C (97.9 ???F), Min:36.2 ???C (97.2 ???F), Max:37 ???C (98.6 ???F) Respirations: Resp: 17 Pulse: Heart Rate: 71 BP: BP: 94/60 BP Range: Systolic (24hrs), Av , Min:91 , Max:123 Diastolic (24hrs), Av, Min:49, Max:92 Wt Readings from Last 3 Encounters: 09/28/23 79.4 kg (175 lb 0.7 oz) 07/23/22 83 kg (183 lb) 05/28/22 77.6 kg (171 lb) Physical Examination: Physical Exam Constitutional: Appearance: Normal appearance. HENT: Head: Normocephalic and atraumatic. Nose: Nose normal. Mouth/Throat: Mouth: Mucous membranes are moist. Eyes: Extraocular Movements: Extraocular movements intact. Conjunctiva/sclera: Conjunctivae normal. Cardiovascular: Rate and Rhythm: Normal rate and regular rhythm. Pulmonary: Effort: Pulmonary effort is normal. Breath sounds: Normal breath sounds. Abdominal: Palpations: Abdomen is soft. Tenderness: There is no abdominal tenderness. Musculoskeletal: Cervical back: Neck supple. Right lower leg: No edema. Left lower leg: No edema. Skin: Findings: No rash. Neurological: General: No focal deficit present. Mental Status: He is alert and oriented to person, place, and time. Motor: No weakness. Gait: Gait normal. Psychiatric: Mood and Affect: Mood normal. Behavior: Behavior normal. Labs: Chemistry: Lab Results Component Value Date NA 138 09/28/2023 K 4.2 09/28/2023 CL 104 09/28/2023 CO2 22 09/28/2023 CO2 28 05/23/2022 ANIONGAP 16 09/28/2023 BUN 35 (H) 09/28/2023 CREATININE 2.06 (H) 09/28/2023 EGFR 31.8 (L) 09/28/2023 GLU 110 (H) 05/23/2022 CKTOTAL 44 05/17/2022 CALCIUM 10.0 09/28/2023 MG 2.0 09/27/2023 PHOS 3.5 05/20/2022 ALBUMIN 4.1 09/28/2023 PROT 7.1 09/28/2023 AST 20 09/28/2023 ALT 11 09/28/2023 BILITOT 1.0 09/28/2023 ALKPHOS 84 09/28/2023 Hematology & Iron studies: Lab Results Component Value Date WBC 7.13 09/28/2023 HGB 13.4 09/28/2023 HCT 42.1 09/28/2023 MCV 91.7 09/28/2023 PLT 178 09/28/2023 Urine chemistry: Lab Results Component Value Date PROTUR 30 (A) 05/17/2022 Urinalysis & Microscopy: Lab Results Component Value Date COLORU YELLOW 05/17/2022 CLARITYU CLEAR 05/17/2022 SPECGRAVU 1.015 05/17/2022 (more content not included)... Normal [facility] LIPID PANELon 09-28-2023 CHOL/HDL 2.4 mg/dL Normal [facility] Comment on above: Performed By: #### L [id number] #### [facility] (BEAKER) [address] [place] [address] Cholesterol [Mass/Vol] 123 mg/dL Normal 120-200 [facility] Comment on above: Performed By: #### L [id number] #### [facility] ([facility]) [address] [place] [address] Magnesium [Mass/Vol] 56 mg/dL Normal 40-149 [facility] Comment on above: Result Comment: TRIG LYCERIDE REFERENCE RANGE: 20 YEARS AND OLDER CARDIOVASCULAR RISK LESS THAN 150 mg/dL LOW RISK 150 TO 199 mg/dL BORDERLINE RISK 200 mg/dL AND GREATER HIGH RISK Performed By: #### L [id number] #### [facility] ([facility]) [address] [place] [address] Magnesium [Mass/Vol] 61 mg/dL Normal 0-160 [facility] Comment on above: Performed By: #### L [id number] #### [facility] ([facility]) [address] [place] [address] Magnesium [Mass/Vol] 51 mg/dL Normal 23-92 [facility] Comment on above: Performed By: #### L [id number] #### [facility] ([facility]) [address] [place] [address] NON HDL CHOL. (LDL+VLDL) 72 Normal [facility] Comment on above: Performed By: #### L [id number] #### [facility] ([facility]) [address] [place] [address] TOTAL VLDL-C 11 mg/dL Normal 0-40 [facility] Comment on above: Performed By: #### L [id number] #### [facility] ([facility]) [address] [place] [address] TROPONIN Ion 09-28-2023 Troponin I.cardiac [Mass/Vol] 0.31 ng/mL Critically high 0.00-0.04 [facility] Comment on above: Result Comment: M-ND EVIOUS CRITICAL RESULT Previous result verified on 09/27/2023 1732 on specimen/case [id number] called with component Troponin I for procedure Troponin I with value 0.32 ng/mL. Performed By: #### L [id number] #### [facility] ([facility]) [address] [place] [address] TSH3 REFLEX TO FT4on 024 THYROTROPIN (MIU/L) IN SER/PLAS BY DETECTION LIMIT <= 0.05 MIU/L 1.41 mIU/L Normal 0.34-5.60 [facility] Comment on above: Performed By: #### L [id number] #### [facility] ([facility]) [address] [place] [address] 30on 09-27-2023 30 The patient is Moder ately Stable - Low risk of patient condition declining or worsening The patient's goals for the shift include comfort The clinical goals for the shift include VSS Problem: Pain - Adult Goal: Verbalizes/displays adequate comfort level or baseline comfort level Outcome: Progressing Flowsheets (Taken 09/27/20232100) Verbalizes/displays adequate comfort level or baseline comfort level: Encourage patient to monitor pain and request assistance Assess pain using appropriate pain scale Administer analgesics based on type and severity of pain and evaluate response Implement non-pharmacological measures as appropriate and evaluate response Consider cultural and social influences on pain and pain management Notify Licensed Independent Practitioner if interventions unsuccessful or patient reports new pain Problem: Safety - Adult Goal: Free from fall injury Outcome: Progressing Flowsheets (Taken 09/27/20232100) Free from fall injury: Assess patient frequently for physical needs Identify cognitive and physical deficits and behaviors that affect risk of falls [place] fall precautions as indicated by assessment Educate patient/family on patient safety, including physical limitations Instruct patient to call for assistance with activity based on assessment Modify environment to reduce risk of injury Consider OT/PT consult to assist with strengthening/mobility Problem: Discharge Planning Goal: Discharge to home or other facility with appropriate resources Outcome: Progressing Flowsheets (Taken 09/27/20232100) Discharge to home or other facility with appropriate resources: Identify barriers to discharge with patient and caregiver Arrange for needed discharge resources and transportation as appropriate Identify discharge learning needs (meds, wound care, etc) Arrange for interpreters to assist at discharge as needed Refer to discharge planning if patient needs post-hospital services based on physician order or complex needs related to functional status, cognitive ability or social support system Problem: Chronic Conditions and Co-morbidities Goal: Patient's chronic conditions and co-morbidity symptoms are monitored and maintained or improved Outcome: Progressing Flowsheets (Taken 09/27/20232100) Care Plan - Patient's Chronic Conditions and Co-Morbidity Symptoms are Monitored and Maintained or Improved: Monitor and assess patient's chronic conditions and comorbid symptoms for stability, deterioration, or improvement Collaborate with multidisciplinary team to address chronic and comorbid conditions and prevent exacerbation or deterioration Update acute care plan with appropriate goals if chronic or comorbid symptoms are exacerbated and prevent overall improvement and discharge Normal [facility] 30 The patient is Moder ately Stable - Low risk of patient condition declining or worsening The patient's goals for the shift include Rest and Comfort The clinical goals for the shift include Stable Vital Signs and CHF Education Problem: Heart Failure diagnosis knowledge deficit Goal: Patient will verbalize understanding of how heart failure affects the body Outcome: Progressing Goal: Patient will verbalize understanding of how other conditions affect the heart Outcome: Progressing Problem: Fluid retention/overload Goal: Patient will be able to identify signs and symptoms of fluid retention Outcome: Progressing Problem: Heart failure medication adherence Goal: Consistently take heart failure medication as prescribed Outcome: Progressing Problem: Insufficient exercise regimen Goal: Patient will engage in physical activity safely Outcome: Progressing Problem: Heart failure progression and care needs Goal: Patient will verbalize understanding of heart failure progression Outcome: Progressing Problem: Heart failure maintenance Goal: Patient will not experience any symptoms of shortness of breath or body swelling over the next 3 months Outcome: Progressing Problem: Cardiovascular - Adult Goal: Maintains optimal cardiac output and hemodynamic stability Outcome: Progressing Problem: Skin/Tissue Integrity - Adult Goal: Skin integrity remains intact Outcome: Progressing Problem: Metabolic/Fluid and Electrolytes - Adult Goal: Electrolytes maintained within normal limits Outcome: Progressing Goal: Hemodynamic stability and optimal renal function maintained Outcome: Progressing Problem: Hematologic - Adult Goal: Maintains hematologic stability Outcome: Progressing Normal [facility] ANTI-XA (HEPARIN LEVEL)on HEPARIN UNFRACTIONATED (U/ML) IN PPP BY CHROMOGENIC METHOD 0.75 IU/mL High 0.3-0.7 [facility] Comment on above: Result Comment: [place] roxaban and Apixaban will interfere with the anti Xa assay used to monitor UFH and LMWH. Performed By: #### L [id number] #### [facility] ([facility] [address] [place] [address] HEPARIN UNFRACTIONATED (U/ML) IN PPP BY CHROMOGENIC METHOD 0.93 IU/mL Critically high 0.3-0.7 [facility] Comment on above: Order Comment: Check anti-Xa level every 6 hours while on heparin infusion, or per protocol. Result Comment: [place] roxaban and Apixaban will interfere with the anti Xa assay used to monitor UFH and LMWH. Performed By: #### L [id number] #### [facility] (BEAKER) [address] [place] [address] BASIC METABOLIC PANELon 09-16 Anion gap [Moles/Vol] 14 mmol/L Normal 7-20 [facility] Comment on above: Performed By: #### L [id number] #### [facility] ([facility]) [address] [place] [address] Calcium [Mass/Vol] 9.8 mg/dL Normal 8.6-10.3 [facility] Comment on above: Performed By: #### L [id number] #### [facility] ([facility] [address] [place] [address] Chloride [Moles/Vol] 105 mmol/L Normal 98-107 [facility] Comment on above: Performed By: #### L [id number] #### [facility] ([facility]) [address] [place] [address] CO2 [Moles/Vol] 25 mmol/L Normal 21-31 [facility] Comment on above: Performed By: #### L [id number] #### [facility] ([facility]) [address] [place] [address] Creatinine [Mass/Vol] 2.01 mg/dL High 0.70-1.30 [facility] Comment on above: Performed By: #### L [id number] #### [facility] ([facility]) [address] [place] [address] GLOMERULAR FILTRATION RATE ML/MIN/1.73 SQ M.PREDICTED 32.7 mL/min/1.73m*2 Low >60.0 [facility] Comment on above: Result Comment: The [facility]???s estimated glomerular filtration rate (eGFR) will no longer include consideration of race in its calculation. The National Kidney Foundation???s eGFR Task Force developed new recommendations for [...] one group of individuals. Performed By: #### L [id number] #### [facility] ([facility]) [address] [place] [address] Glucose [Mass/Vol] 103 mg/dL High 70-100 [facility] Comment on above: Performed By: #### L [id number] #### [facility] ([facility]) [address] [place] [address] Potassium [Moles/Vol] 4.3 mmol/L Normal 3.5-5.1 [facility] Comment on above: Performed By: #### L [id number] #### [facility] ([facility]) [address] [place] [address] Sodium [Moles/Vol] 140 mmol/L Normal 136-145 [facility] Comment on above: Performed By: #### L [id number] #### [facility] ([facility]) [address] [place] [address] Urea nitrogen [Mass/Vol] 37 mg/dL High 7-25 [facility] Comment on above: Performed By: #### L [id number] #### [facility] ([facility]) [address] [place] [address] UREA NITROGEN/CREATININE (MASS RATIO) IN SER/PLAS 18.4 Normal [facility] Comment on above: Performed By: #### L [id number] #### [facility] ([facility]) [address] [place] [address] CONSULTon 09-27-2023 CONSULT ------- Attestation signed by Sonja Hall MD at 09/27/2023 3:40 PM I personally saw and examined the patient on the same date of service as resident/fellow Dr Encinas. I discussed the findings and therapeutic plan with the resident/fellow Dr Encinas. I agree with the documentation, except for any edits/updates below. Teaching Physician's Revisions: At this juncture, there is no indication for urgent coronary/graft angiography particularly in view of the worsened serum creatinine. Will treat medically for decompensated heart failure with reduced ejection fraction. Will monitor his serum creatinine and electrolytes closely. Will involve nephrology as needed. May consider a Lexiscan stress test to evaluate for ischemia given the duration of time since his last ischemic workup. Sonja Hall MD, MPH, [facility], [facility], [facility] Interventional Cardiology Pager Email: [email or web address] Cardiology Consult Note Reason for Consult: SOB HPI: José Miguel Roth is a 83 y.o. male with past medical history of heart failure with reduced ejection fraction last EF is 20 to 25% in [facility], history of ST elevation MD, ischemic cardiomyopathy, coronary artery disease s/p CABG x 3 (OTTO to LAD, SVG to PDA, SVG to OM) in 2005, last coronary angiography in 2021 showed patent OTTO to LAD and SVG to OM, and occluded SVG to PDA nonsustained ventricular tachycardia, ICD placement, peripheral artery disease s/p right CEA in 2011 chronic kidney disease stage IIIb who came to the hospital as a transfer from [facility] due to concerns for acute coronary syndrome. Reportedly, patient presented there due to shortness of breath, elevated BNP, and worsening kidney functions. Patient had increased exertional shortness of breath with activity and at rest. Patient endorsed lower extremity swelling. Patient denies any chest pain at this time. Patient was found to have nonsustained atrial tachycardia at [facility] which prompted him to be transferred here to the hospital for heart cath. However, upon review of prior coronary angiography's, patient was found to have recent cath in 2021 that showed patent OTTO to LAD and SVG to OM with severe three-vessel [place] disease. Patient has been following with our team until 2021 before he switched his care to [facility]. Patient has not been compliant with cardiac rehabilitation. Cardiology ROS: Negative except as mentioned. Past Medical History He has no past medical history on file. Surgical History He has a past surgical history that includes Coronary artery bypass graft; Carotid endarterectomy; and Cardiac catheterization. Social History He reports that he has quit smoking. His smoking use included cigarettes. He has never used smokeless tobacco. He reports that he does not currently use alcohol. No history on file for drug use. Family History Family History Problem Relation Name Age of Onset Coronary artery disease Father Coronary artery disease Brother Allergies Latex Medications Medications Prior to Admission Medication Sig Dispense Refill Last Dose aspirin 81 mg EC tablet Take 1 tablet every day by oral route. atorvastatin (Lipitor) 40 mg tablet Take 1 tablet by mouth in the morning. bicalutamide (Casodex) 50 mg chemo tablet bicalutamide 50 mg tablet cholecalciferol (Vitamin D-3) 25 MCG (1000 UT) capsule Take 1,000 Units by mouth in the morning. dapagliflozin (Farxiga) 10 mg Farxiga 10 mg tablet TAKE ONE TABLET BY MOUTH EVERY DAY dapagliflozin (Farxiga) 10 mg Take 10 mg by mouth in the morning. dapagliflozin (Farxiga) 10 mg Take 1 tablet (10 mg) by mouth in the morning. 30 tablet 11 ezetimibe (Zetia) 10 mg tablet TAKE ONE TABLET BY MOUTH EVERY MORNING 90 tablet 3 ferrous sulfate 325 (65 Fe) MG tablet 65 mg. lisinopril 5 mg tablet metoprolol succinate XL (Toprol-XL) 25 mg 24 hr tablet Take 25 mg by mouth in the morning. sildenafil (Viagra) 100 mg tablet 20 mg one daily PRN thyroid, pork, ([place] Thyroid) 90 mg tablet Take 1 tablet every day by oral route. torsemide (Demadex) 10 mg tablet Take 10 mg by mouth if needed. Last Recorded Vitals Patient Vitals for the past 24 hrs: BP Temp Temp src Pulse Resp SpO2 Height Weight 09/27/23 1345 107/68 36.2 ???C (97.2 ???F) Temporal 73 20 97 % -- -- 09/27/23 1330 -- -- -- -- -- -- 1.829 m (6') -- 09/27/23 1329 -- -- -- -- -- -- -- 80.9 kg (178 lb 5.6 oz) Physical Examination: GENERAL: AOx3, in no acute distress. HEAD: Atraumatic, normocephalic. EYES: VINCENT, EOMI. NECK: JVD present. CARDIAC: RRR. Systolic murmur RESPIRATORY: CTAB, no increased effort of breathing. ABDOMEN: Soft, nontender, nondistended. EXTREMITIES: Trace lower extremity edema NEURO: No focal deficits Relev (more content not included)... Normal [facility] MAGNESIUMon 09-27-2023 Magnesium [Mass/Vol] 2.0 mg/dL Normal 1.9-2.7 [facility] Comment on above: Performed By: #### L AB15 #### [facility] ([facility]) [address] [place] [address] Orders Onlyon 09-27-2023 Orders Only [id number] Pramod Roth 1940 M Date Provider Department Center 09/27/[id number]-ZUWNCYROSY OBRGEON [facility] Family History Problem Relation Age of Onset Coronary artery disease Father Coronary artery disease Brother Family Status - Relation Status Age at Father Brother Normal [facility] PLATELET COUNTon 09-27-2023 PLATELETS (10*3/UL) IN BLOOD AUTOMATED COUNT 165 10*3/uL Normal 150-400 [facility] Comment on above: Performed By: #### L AB15 #### [facility] ([facility]) [address] [place] [address] TROPONIN Ion 09-27-2023 Troponin I.cardiac [Mass/Vol] 0.31 ng/mL Critically high 0.00-0.04 [facility] Comment on above: Result Comment: M-ND EVIOUS CRITICAL RESULT Previous result verified on 09/27/2023 1732 on specimen/case [id number] called with component Troponin I for procedure Troponin I with value 0.32 ng/mL. Performed By: #### L [id number] #### [facility] ([facility]) [address] [place] [address] Troponin I.cardiac [Mass/Vol] 0.32 ng/mL Critically high 0.00-0.04 [facility] Comment on above: Result Comment: M-TR OPONIN INITIAL CRITICAL HIGH; RESPUN AND RETESTED Performed By: #### L [id number] #### [facility] ([facility]) [address] [place] [address] PSA SerPl-ncon 09-24-2023 Prostate specific Ag [Mass/Vol] ng/mL Normal <2.60 [facility] Comment on above: Order Comment: Speci men Type: BLOOD SPECIMENOrdering Facility: [facility] Address: [address] [place] [address] Result Comment: Anival fenton PSA test methodology used is the Electrochemiluminescence Immunoassay by [employer]. Total PSA values by differing methodologies cannot be interchanged. Performed By: #### 2 857-1 ####[facility] [id number] [place] [address] [place] Yoan 08-27-2023 DOROTHYN Telephone (ALISSON) JOSÉ MIGUEL ROTH JR. ([id number]) 1940 M Date Time Provider Department 08/27/23 [...] 0.4 mg SL tablet as directed. - 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 - [...] of t*04/28/2012 05/05/2012 Atherosclerotic heart disease of [place] coronar* SUMMARY [V999.95] 04/28/2012 Wide-complex tachycardia [R00.0] [...] (coronary artery bypass graft) [Z95.1] 06/17/2012 Sweating [HER4227] 11/17/2012 CAD (coronary artery disease) of artery bypass *11/17/2012 Systolic heart failure (HCC) [I50.20] 11/17/2012 PVD (peripheral vascular disease) ([facility]) [I73.9] 11/17/2012 Prostate cancer ([facility]) [C61] 10/09/2017 Syncope [R55] 03/18/2019 Stroke (cerebrum) ([facility]) [I63.9] 09/03/2022 Chronic combined systolic and diastolic congest*09/03/2022 Carotid stenosis, asymptomatic, bilateral [I65.*09/03/2022 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 *04/26/2023 Encounter Status:Closed by CARINA SUE [facility] Visit (ALISSON ) JOSÉ MIGUEL ROTH ([id number]) 1940 Date Time Provider Department 04/26/23 3:00 PM ANDREAS DEL CID During your visit today, we recorded the following information about you: Pulse Respiration Blood pressure Weight 73/minute 12/minute 116/62 83.9 kg Height 1.829 m Andreas Del Cid MD 04/27/2023 12:57 PM [facility] [place] Jose Martin Silva Department of Cardiovascular Medicine SECTION OF CARDIOVASCULAR IMAGING OUTPATIENT VISIT DATE April 26, 2023 OUTPATIENT VISIT TYPE ESTABLISHED PRIMARY CARE PHYSICIAN: Francisca Thompson [address] [place] [address] REFERRING PHYSICIAN: Francisca Thompson [address] [facility] [id number] CHIEF COMPLAINT: Follow up HISTORY OF PRESENT [...] combined systolic and diastolic congestive heart failure ([facility]) 09/03/2022 Dyslipidemia GERD (gastroesophageal reflux disease) Heart failure, acute systolic ([facility]) Hypertension Hypothyroid Myocardial infarct, old Occlusion and stenosis of carotid artery without mention of cerebral infarction Prostate cancer ([facility]) 2020 PVD (peripheral vascular disease) ([facility]) 11/17/2012 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 Systolic heart failure ([facility]) Thyroid disorder 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 kidney disease, unspecified CKD stage, unspecified whether custodial insulin use ([facility]) 04/26/2023 Ventricular tachycardia ([facility]) 04/28/2012 PAST SURGICAL HISTORY Procedure Laterality Date [...] Artery Disease Father Heart Attack Father fatal MD at age 77 other (atrial fibrillation) Mother other (CHF) Mother other (Other) Mother at age 96 Ischemic Heart Disease Brother CABGx6 first at age 72 No Known Problems Daughter No Known Problems Daughter No Known Problems Daughter other (Other) Other paternal cousin at age 50 of MD ALLERGIES: ALLERGIES Allergen Reactions Latex Rash Adhesive [...] difficulties. HE (more content not included)... Normal [facility] ECG COMPLETEon 04-26-2023 ECG COMPLETE Ventricular Rate : 6 6 BPM Atrial Rate : 66 BPM P-R Interval : 180 ms QRS Duration : 114 ms Q-T Interval : 406 ms QTC Calculation(Bazett) : 425 ms Calculated P Hickman : 39 degrees Calculated R Hickman : -13 degrees Calculated T Hickman : 87 degrees SINUS RHYTHM WITH SINUS ARRHYTHMIA WITH OCCASIONAL PREMATURE VENTRICULAR COMPLEXES CANNOT EXCLUDE OLD INTERIOR INFARCTION ABNORMAL ECG Confirmed by CARMELA CRYSTAL MD ([id number]) on 05/02/2023 7:31:47 PM NAME : JOSÉ MIGUEL ROTH PID : [id number] : 1940 Gender : Male Race : ORD : [id number] Procedure Date : Apr 26 2023 12:40:23 Edit Date : May 02 2023 19:31:54 Diagnosis: SINUS RHYTHM WITH SINUS ARRHYTHMIA WITH OCCASIONAL PREMATURE VENTRICULAR COMPLEXES CANNOT EXCLUDE OLD INTERIOR INFARCTION ABNORMAL ECG Confirmed by CARMELA CRYSTAL MD ([id number]) on 05/02/2023 7:31:47 PM Test Reason : Location : [facility] : [place] [address] Overread By : CARMELA CRYSTAL MD Edited By : CARMELA CRYSTAL MD Referred By : ANDREAS DEL CID Acquired by : MAIKOL BURLESON Normal [facility] ECHOon 04-26-2023 Echocardiography Echocardiography Rep ort: Transthoracic Echo [facility] J1-5 Date of service: 04/26/2023 1:20:02 PM AND 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 Normal [facility] CNOVon 04-02-2023 CNOV Office Visit (RADTSA ) IRAJOSÉ MIGUELMINISTERIO Fenton JR. ([id number]) 1940 M Date Time Provider Department 04/02/23 [...] PSA 08/2021 36.2. and repeat biopsy showing [place] 7 (3+4) adenocarcinoma. RADIATION SUMMARY: DATES OF [...] who recently had to be admitted to halfway due to feels safe. PSA HISTORY: PSA [...] Yung Kim MD cc: Francisca Thompson MD [address] [place] [address] Kathie Pavon RN 04/02/2023 4:02 PM Signed AUA 1.5 Kathie Pavon RN Allergies As of Date: 04/02/2023 Noted Allergy Reaction LATEX 03/13/2019 2 - Rash ADHESIVE TAPE (ROSINS) 06/16/2012 2 - Rash Date Reviewed: 04/02/2023 Reviewed by: Kathie Pavon RN - Fully Assessed Reason for Visit: Prostate Cancer [590] Primary Visit Diagnosis:Malignant neoplasm of prostate (HCC) [C61] Order(s):PSA/PROSTSPECAG DIAG [SQPSA] Order #: [id number] FUTURE Prescriptions as of 04/05/2023 - FARXIGA [...] spironolactone (ALDAC (more content not included)... Normal [facility] PSA SerPl-ncon 03-26-2023 Prostate specific Ag [Mass/Vol] ng/mL Normal <2.60 [facility] Comment on above: Order Comment: Speci men Type: BLOOD SPECIMENOrdering Facility: [facility] Address: [address] [place] [address] Result Comment: Anival fenton PSA test methodology used is the Electrochemiluminescence Immunoassay by [employer]. Total PSA values by differing methodologies cannot be interchanged. Performed By: #### 2 857-1 ####[facility] [id number] [facility] [id number] [address] [place] ICD REMOTE CHECKon 3 AV Delay Adaptive Paced Minimum (ms) 200 ms [facility] AV Delay Adaptive Sensed Minimum (ms) 170 ms [facility] Bj RA Pacing Amplitude (volts) 2.0 V [facility] Bj RA Pacing Polarity BI [facility] Bj RA Pacing Pulse Width (ms) 0.5 ms [facility] Bj RA Sensing Amplitude (mvolts) 0.25 mV [facility] Bj RA Sensing Polarity BI [facility] Bj RV Pacing Amplitude (volts) 2.0 V [facility] Bj RV Pacing Polarity BI [facility] Bj RV Pacing Pulse Width (ms) 0.5 ms [facility] Bj RV Sensing Amplitude (mvolts) 0.3 mV [facility] Bj RV Sensing Polarity BI [facility] Detection Configuration (Vent) 2 - Zone [facility] FastVT_Detection Interval 250 ms [facility] FastVT_Therapy Configuration 1 ATP(s) + 8 Shock(s) [facility] ICD FastVT DetectionStatus ENABLED [facility] ICD-AMS EPISODES 170 {beats}/min [facility] ICD-ATP Episodes (Vent) 0 [facility] ICD-ATRIALFIBRILLAT ION 2 [facility] ICD-ATRIALTACHYCARD IA 2 [facility] ICD-ATRIALTACHYCARD IA 5 [facility] ICD-Device Mfg BSX [facility] ICD-Fast Ventricular Tachycardia 5 [facility] ICD-LEADIMPEDANCEAT RIAL 746 ohm [facility] ICD-Percent Pacing (Atrial) 1 % [facility] ICD-Percent Pacing (Vent) 0 % [facility] ICD-Shocks Aborted (Vent) 0 [facility] [id number] D 0 [facility] ICD-SHOCKSABORTED 0 [facility] ICD-SHOCKSDELIVERED VENTRICULAR 0 [facility] ICD-Ventricular Fibrillation 0 [facility] Lead Impedance (RV) 426 ohm [facility] Lead Impedance High Voltage 49 ohm [facility] Lead1 Mfg BSX [facility] Lead2 Mfg BSX [facility] Location RV [facility] Location RA [facility] Lower Rate (bpm) 50 {beats}/min [facility] Max Sensor Rate (bpm) 130 {beats}/min [facility] MDT_PROG_TACHY_ZONE _DETECTIONS_STATUS ENABLED [facility] Model D142 INOGEN [facility] Model [address] [place] 4-Front [facility] Model 7741 Ingevity MRI [facility] Pacing Mode DDDR [facility] Serial Number [id number] [facility] Serial Number [id number] [facility] Serial Number [id number] [facility] Test Charge Energy 23 J [facility] Test Charge Time 10.[address] [facility] Therapy Status (Vent) Enabled [facility] Thresh RA Capture Amplitude (volts) 0.6 V [facility] Thresh RA Capture Duration (ms) 0.5 ms [facility] Thresh RV Capture Amplitude (VOLTS) 0.5 V [facility] Thresh RV Capture Duration (MS) 0.5 ms [facility] Tracking Rate (bpm) 130 {beats}/min [facility] VF Zone Detection Interval 250 ms [facility] VF Zone Therapy Configuration 1 ATP(s) + 8 Shock(s) [facility] No Panel Informationon 02-21 BLANK _ [facility] ICD-ATRIALTACHYCARD IA 0 [facility] ICD-Fast Ventricular Tachycardia 0 [facility] Implant Date 03/24/2019 [facility] FREE T3on 02-08-2023 FREE T3 3.21 pg/mlL Normal 2.18-3.98 [facility] Comment on above: Performed By: #### V ITAD #### [facility] [address] [place] [address] Dr. Silva Burnett FREE T4on 02-08-2023 Free T4 [Mass/Vol] 0.74 ng/dL Critically low 0.76-1.46 [facility] Comment on above: Performed By: #### B MP, BNP #### [facility] [address] [place] [address] Dr. Silva Burnett TSHon 02-08-2023 TSH 0.168 uIU/mL Critically low 0.358-3.740 [facility] Comment on above: Performed By: #### V ITAD #### [facility] [address] [place] [address] [address] Silva Milton 12-12-2022 CNPN Telephone (VASSMN) JOSÉ MIGUEL ROTH JR. ([id number]) 1940 M Date Time Provider Department 12/12/22 JOHN JEFFERSON During your visit today, we recorded the following information about you: Huber Espinal RN 12/12/2022 12:04 PM Signed Pt cancelled carotid surgery, left pt message to update [...] of t*04/28/2012 05/05/2012 CAD (coronary artery disease), [place] coronary *04/28/2012 SUMMARY [V999.95] 04/28/2012 Wide-complex tachycardia [...] (coronary artery bypass graft) [Z95.1] 06/17/2012 Sweating [CPC3990] 11/17/2012 CAD (coronary artery disease) of artery bypass *11/17/2012 Systolic heart failure ([facility]) [I50.20] 11/17/2012 PVD (peripheral vascular disease) ([facility]) [I73.9] 11/17/2012 Prostate cancer ([facility]) [C61] 10/09/2017 Syncope [R55] 03/18/2019 Stroke (cerebrum) ([facility]) [I63.9] 09/03/2022 Chronic combined systolic and diastolic congest*09/03/2022 Carotid stenosis, asymptomatic, bilateral [I65.*09/03/2022 Encounter Status:Closed by HUBER ESPINAL RN on 12/12/22 [facility] CNPPrincess 11-29-2022 CNPN Telephone (VASSMN) JOSÉ MIGUEL ROTH JR. ([id number]) 1940 M Date Time Provider Department 11/29/22 JOHN JEFFERSON During your visit today, we recorded the following information about you: Darlene Rajput Sec 11/29/2022 9:12 AM Signed Mr. Roth decided not to move forward with surgery at this time and would like to cancel. Darlene Rajput Integrated Marketing Intern Allergies As of Date: 11/29/2022 Noted Allergy [...] of t*04/28/2012 05/05/2012 CAD (coronary artery disease), [place] coronary *04/28/2012 SUMMARY [V999.95] 04/28/2012 Wide-complex tachycardia [...] (coronary artery bypass graft) [Z95.1] 06/17/2012 Sweating [LBI9173] 11/17/2012 CAD (coronary artery disease) of artery bypass *11/17/2012 Systolic heart failure (HCC) [I50.20] 11/17/2012 PVD (peripheral vascular disease) ([facility]) [I73.9] 11/17/2012 Prostate cancer ([facility]) [C61] 10/09/2017 Syncope [R55] 03/18/2019 Stroke (cerebrum) ([facility]) [I63.9] 09/03/2022 Chronic combined systolic and diastolic congest*09/03/2022 Carotid stenosis, asymptomatic, bilateral [I65.*09/03/2022 Encounter Status:Closed by DARLENE SHUKLA on 11/29/22 Normal [facility] ICD REMOTE CHECKon 3 AV Delay Adaptive Paced Minimum (ms) 200 ms [facility] AV Delay Adaptive Sensed Minimum (ms) 170 ms [facility] Bj RA Pacing Amplitude (volts) 2 V [facility] Bj RA Pacing Polarity BI [facility] Bj RA Pacing Pulse Width (ms) 0.5 ms [facility] Bj RA Sensing Amplitude (mvolts) 0.25 mV [facility] Bj RA Sensing Polarity BI [facility] Bj RV Pacing Amplitude (volts) 2 V [facility] Bj RV Pacing Polarity BI [facility] Bj RV Pacing Pulse Width (ms) 0.5 ms [facility] Bj RV Sensing Amplitude (mvolts) 0.3 mV [facility] Bj RV Sensing Polarity BI [facility] Detection Configuration (Vent) 2 - Zone [facility] FastVT_Detection Interval 250 ms [facility] FastVT_Therapy Configuration 1 ATP(s) + 8 Shock(s) [facility] ICD FastVT DetectionStatus ENABLED [facility] ICD-AMS EPISODES 170 {beats}/min [facility] ICD-ATP Episodes (Vent) 0 [facility] ICD-ATRIALFIBRILLAT ION 1 [facility] ICD-ATRIALTACHYCARD IA 1 [facility] ICD-ATRIALTACHYCARD IA 3 [facility] ICD-Device Mfg BSX [facility] ICD-Fast Ventricular Tachycardia 3 [facility] ICD-LEADIMPEDANCEAT RIAL 786 ohm [facility] ICD-Percent Pacing (Atrial) 1 % [facility] ICD-Percent Pacing (Vent) 0 % [facility] ICD-Shocks Aborted (Vent) 0 [facility] [id number] D 0 [facility] ICD-SHOCKSABORTED 0 [facility] ICD-SHOCKSDELIVERED VENTRICULAR 0 [facility] ICD-Ventricular Fibrillation 0 [facility] Lead Impedance (RV) 458 ohm [facility] Lead Impedance High Voltage 53 ohm [facility] Lead1 Mfg BSX [facility] Lead2 Mfg BSX [facility] Location RV [facility] Location RA [facility] Lower Rate (bpm) 50 {beats}/min [facility] Max Sensor Rate (bpm) 130 {beats}/min [facility] MDT_PROG_TACHY_ZONE _DETECTIONS_STATUS ENABLED [facility] Model D142 INOGEN [facility] Model [address] [place] 4-Front [facility] Model 7741 Ingevity MRI [facility] Pacing Mode DDDR [facility] Serial Number [id number] [facility] Serial Number [id number] [facility] Serial Number [id number] [facility] Test [employer] Energy 23 J [facility] Test Charge Time 10.[address] [facility] Therapy Status (Vent) Enabled [facility] Thresh RA Capture Amplitude (volts) 0.6 V [facility] Thresh RA Capture Duration (ms) 0.5 ms [facility] Thresh RV Capture Amplitude (VOLTS) 0.5 V [facility] Thresh RV Capture Duration (MS) 0.5 ms [facility] Tracking Rate (bpm) 130 {beats}/min [facility] VF Zone Detection Interval 250 ms [facility] VF Zone Therapy Configuration 1 ATP(s) + 8 Shock(s) [facility] No Panel Informationon 11-07 BLANK _ [facility] ICD-ATRIALTACHYCARD IA 0 [facility] ICD-Fast Ventricular Tachycardia 0 [facility] Implant Date 03/24/2019 [facility] Yoan 10-31-2022 BENNY Telephone (SimilarSites.comN) IRAJOSÉ MIGUEL Larry SORTO ([id number]) 1940 M Date Time Provider Department 10/31/22 JOHN JEFFERSON During your visit today, we recorded the following information about you: Lidia Howell Rogers 10/31/2022 12:01 PM Signed Called patient José [...] of t*04/28/2012 05/05/2012 CAD (coronary artery disease), [place] coronary *04/28/2012 SUMMARY [V999.95] 04/28/2012 Wide-complex tachycardia [...] (coronary artery bypass graft) [Z95.1] 06/17/2012 Sweating [[id number]] 11/17/2012 CAD (coronary artery disease) of artery bypass *11/17/2012 Systolic heart failure (HCC) [I50.20] 11/17/2012 PVD (peripheral vascular disease) (HCC) [I73.9] 11/17/2012 Prostate cancer (HCC) [C61] 10/09/2017 Syncope [R55] 03/18/2019 Stroke (cerebrum) (HCC) [I63.9] 09/03/2022 Chronic combined systolic and diastolic congest*09/03/2022 Carotid stenosis, asymptomatic, bilateral [I65.*09/03/2022 Encounter Status:Closed by LIDIA MCCLOUD on 10/31/22 Normal [facility] Comprehensive metabolic 2000 panelon 10-26-2022 Albumin [Mass/Vol] 4.0 g/dL 3.9 - 4.9 g/dL [facility] ALP [Catalytic activity/Vol] 103 U/L 38 - 113 U/L [facility] ALT [Catalytic activity/Vol] 15 U/L 10 - 54 U/L [facility] Anion gap [Moles/Vol] 17 mmol/L 9 - 18 mmol/L [facility] AST [Catalytic activity/Vol] 26 U/L 14 - 40 U/L [facility] Bilirubin [Mass/Vol] 0.6 mg/dL 0.2 - 1.3 mg/dL [facility] Calcium [Mass/Vol] 10.2 mg/dL 8.5 - 10. 2 mg/dL [facility] Chloride [Moles/Vol] 103 mmol/L 97 - 105 mmol/L [facility] CO2 [Moles/Vol] 20 mmol/L Low 22 - 30 mmol/L [facility] Creatinine [Mass/Vol] 1.89 mg/dL High 0.73 - 1.22 mg/dL [facility] Estimated Glomerular Filtration Rate 35 mL/min/1.73m Low >=60 mL/min/1.73 m [facility] Glucose [Mass/Vol] 103 mg/dL High 74 - 99 mg/dL [facility] Potassium [Moles/Vol] 5.5 mmol/L High 3.7 - 5.1 mmol/L [facility] Protein [Mass/Vol] 7.7 g/dL 6.3 - 8.0 g/dL [facility] Sodium [Moles/Vol] 140 mmol/L 136 - 144 mmol/L [facility] [facility] Urea nitrogen [Mass/Vol] 40 mg/dL High 9 - 24 mg/dL [facility] NT PRO BNPon 10-26-2022 Natriuretic peptide.B prohormone N-Terminal [Mass/Vol] 5553 pg/mL High <450 pg/mL [facility] CBC W Auto Differential pane l (Bld)on 10-25-2022 Basophils (Bld) [#/Vol] 10*3/uL Normal <0.11 [facility] Comment on above: Order Comment: Speci men Type: BLOOD SPECIMENOrdering Facility: [facility] Address: [address] Performed By: #### 5 7021-8 ####[facility] [id number] [address] STATES [facility] Basophils/100 WBC (Bld) 0.3 % Normal [facility] Comment on above: Order Comment: Speci men Type: BLOOD SPECIMENOrdering Facility: [facility] Address: [address] [place] [address] Performed By: #### 5 7021-8 ####[facility] [id number] [address] [place] Differential cell count method Nom (Bld) Auto Normal [facility] Comment on above: Order Comment: Speci men Type: BLOOD SPECIMENOrdering Facility: [facility] Address: [address] [place], [place] [address] Performed By: #### 5 7021-8 ####[facility] [id number] [place] [address] [place] Eosinophils (Bld) [#/Vol] 0.20 10*3/uL Normal <0.46 [facility] Comment on above: Order Comment: Speci men Type: BLOOD SPECIMENOrdering Facility: [facility] Address: [address] [place], [place] [address] Performed By: #### 5 7021-8 ####[facility] [id number] [address] STATES [facility] Eosinophils/100 WBC (Bld) 2.7 % Normal [facility] Comment on above: Order Comment: Speci men Type: BLOOD SPECIMENOrdering Facility: [facility] Address: [address] [place], [place] [address] Performed By: #### 5 7021-8 ####[facility] [id number] [place] [address] [place] Erythrocyte distribution width (RBC) [Ratio] 13.6 % Normal 11.5-15.0 [facility] Comment on above: Order Comment: Speci men Type: BLOOD SPECIMENOrdering Facility: [facility] Address: [address] [place], [place] [address] Performed By: #### 5 7021-8 ####[facility] [id number] [place] [address] [place] Hematocrit (Bld) [Volume fraction] 47.3 % Normal 39.0-51.0 [facility] Comment on above: Order Comment: Speci men Type: BLOOD SPECIMENOrdering Facility: [facility] Address: [address] [place], [place] [address] Performed By: #### 5 7021-8 ####[facility] [id number] [address] [place] Hemoglobin (Bld) [Mass/Vol] 14.6 g/dL Normal 13.0-17.0 [facility] Comment on above: Order Comment: Speci men Type: BLOOD SPECIMENOrdering Facility: [facility] Address: [address] [place], [place] [address] Performed By: #### 5 7021-8 ####[facility] [id number] [address] [place] Immature granulocytes (Bld) [#/Vol] 10*3/uL Normal <0.10 [facility] Comment on above: Order Comment: Speci men Type: BLOOD SPECIMENOrdering Facility: [facility] Address: [address] [place], [place] [address] Performed By: #### 5 7021-8 ####[facility] [id number] [address] [place] Immature granulocytes/100 WBC (Bld) 0.3 % Normal [facility] Comment on above: Order Comment: Speci men Type: BLOOD SPECIMENOrdering Facility: [facility] Address: [address] Performed By: #### 5 7021-8 ####[facility] [id number] [place] [address] [place] Lymphocytes (Bld) [#/Vol] 1.40 10*3/uL Normal 1.00-4.00 [facility] Comment on above: Order Comment: Speci men Type: BLOOD SPECIMENOrdering Facility: [facility] Address: [address] [address] Performed By: #### 5 7021-8 ####[facility] [id number] [address] [place] Lymphocytes/100 WBC (Bld) 19.0 % Normal [facility] Comment on above: Order Comment: Speci men Type: BLOOD SPECIMENOrdering Facility: [facility] Address: [address] [place], [place] [address] Performed By: #### 5 7021-8 ####[facility] [id number] [place] [address] [place] MCH (RBC) [Entitic mass] 29.1 pg Normal 26.0-34.0 [facility] Comment on above: Order Comment: Speci men Type: BLOOD SPECIMENOrdering Facility: [facility] Address: [address] Performed By: #### 5 7021-8 ####[facility] [id number] [place] [address] [place] MCHC (RBC) [Mass/Vol] 30.9 g/dL Normal 30.5-36.0 [facility] Comment on above: Order Comment: Speci men Type: BLOOD SPECIMENOrdering Facility: [facility] Address: [address] [place], [place] [address] Performed By: #### 5 7021-8 ####[facility] [id number] [place] [address] [place] MCV (RBC) [Entitic vol] 94.2 fL Normal 80.0-100.0 [facility] Comment on above: Order Comment: Speci men Type: BLOOD SPECIMENOrdering Facility: [facility] Address: [address] [place] [address] Performed By: #### 5 7021-8 ####[facility] [id number] [place] [address] [place] Monocytes (Bld) [#/Vol] 0.65 10*3/uL Normal <0.87 [facility] Comment on above: Order Comment: Speci men Type: BLOOD SPECIMENOrdering Facility: [facility] Address: [address] [place] [address] Performed By: #### 5 7021-8 ####[facility] [id number] [place] [address] [place] Monocytes/100 WBC (Bld) 8.8 % Normal [facility] Comment on above: Order Comment: Speci men Type: BLOOD SPECIMENOrdering Facility: [facility] Address: [address] [place] [address] Performed By: #### 5 7021-8 ####[facility] [id number] [place] [address] [place] Neutrophils (Bld) [#/Vol] 5.06 10*3/uL Normal 1.45-7.50 [facility] Comment on above: Order Comment: Speci men Type: BLOOD SPECIMENOrdering Facility: [facility] Address: [address] [place], [place] [address] Performed By: #### 5 7021-8 ####[facility] [id number] [place] [address] [place] Neutrophils/100 WBC (Bld) 68.9 % Normal [facility] Comment on above: Order Comment: Speci men Type: BLOOD SPECIMENOrdering Facility: [facility] Address: [address] [place] [address] Performed By: #### 5 7021-8 ####[facility] [id number] [place] [address] [place] Nucleated RBC (Bld) [#/Vol] 10*3/uL Normal <0.01 [facility] Comment on above: Order Comment: Speci men Type: BLOOD SPECIMENOrdering Facility: [facility] Address: [address] Performed By: #### 5 7021-8 ####[facility] [id number] [place] [address] [place] Nucleated RBC/100 WBC (Bld) [Ratio] 0.0 /100 WBC Normal [facility] Comment on above: Order Comment: Speci men Type: BLOOD SPECIMENOrdering Facility: [facility] Address: [address] [place] [address] Performed By: #### 5 7021-8 ####[facility] [id number] [place] [address] [place] Platelet mean volume (Bld) [Entitic vol] 10.7 fL Normal 9.0-12.7 [facility] Comment on above: Order Comment: Speci men Type: BLOOD SPECIMENOrdering Facility: [facility] Address: [address] [place] [address] Performed By: #### 5 7021-8 ####[facility] [id number] [place] [address] [place] Platelets (Bld) [#/Vol] 159 10*3/uL Normal 150-400 [facility] Comment on above: Order Comment: Speci men Type: BLOOD SPECIMENOrdering Facility: [facility] Address: [address] [place] [address] Performed By: #### 5 7021-8 ####[facility] [id number] [place] [address] [place] [facility] RBC (Bld) [#/Vol] 5.02 10*6/uL Normal 4.20-6.00 [facility] Comment on above: Order Comment: Speci men Type: BLOOD SPECIMENOrdering Facility: [facility] Address: [address] [place] [address] Performed By: #### 5 7021-8 ####[facility] [id number] [address] WBC (Bld) [#/Vol] 7.35 10*3/uL Normal 3.70-11.00 [facility] Comment on above: Order Comment: Speci men Type: BLOOD SPECIMENOrdering Facility: [facility] Address: [address] [place] [address] Performed By: #### 5 7021-8 ####[facility] [id number] [address] [place] Basophils (Bld) [#/Vol] <0.11 k/uL [facility] Basophils/100 WBC (Bld) 0.3 % [facility] Differential cell count method Nom (Bld) Auto [facility] Eosinophils (Bld) [#/Vol] 0.20 10*3/uL <0.46 k/uL [facility] Eosinophils/100 WBC (Bld) 2.7 % [facility] Erythrocyte distribution width (RBC) [Ratio] 13.6 % 11.5 - 15.0 % [facility] Hematocrit (Bld) [Volume fraction] 47.3 % 39.0 - 51.0 % [facility] Hemoglobin (Bld) [Mass/Vol] 14.6 g/dL 13.0 - 17.0 g/dL [facility] Immature granulocytes (Bld) [#/Vol] <0.10 k/uL [facility] Immature granulocytes/100 WBC (Bld) 0.3 % [facility] Lymphocytes (Bld) [#/Vol] 1.40 10*3/uL 1.00 - 4.00 k/uL [facility] Lymphocytes/100 WBC (Bld) 19.0 % [facility] MCH (RBC) [Entitic mass] 29.1 pg 26.0 - 34.0 pg [facility] MCHC (RBC) [Mass/Vol] 30.9 g/dL 30.5 - 36.0 g/dL [facility] MCV (RBC) [Entitic vol] 94.2 fL 80.0 - 100.0 fL [facility] Monocytes (Bld) [#/Vol] 0.65 10*3/uL <0.87 k/uL [facility] Monocytes/100 WBC (Bld) 8.8 % [facility] Neutrophils (Bld) [#/Vol] 5.06 10*3/uL 1.45 - 7.50 k/uL [facility] Neutrophils/100 WBC (Bld) 68.9 % [facility] Nucleated RBC (Bld) [#/Vol] <0.01 k/uL [facility] Nucleated RBC/100 WBC (Bld) [Ratio] 0.0 /100 WBC [facility] Platelet mean volume (Bld) [Entitic vol] 10.7 fL 9.0 - 12.7 fL [facility] Platelets (Bld) [#/Vol] 159 10*3/uL 150 - 400 k/uL [facility] RBC (Bld) [#/Vol] 5.02 10*6/uL 4.20 - 6.0 0 m/uL [facility] WBC (Bld) [#/Vol] 7.35 10*3/uL 3.70 - 11.00 k/uL [facility] CNOVon 10-25-2022 CNOV Office Visit (ALISSON ) JOSÉ MIGUEL ROTH JR. ([id number]) 1940 M Date Time Provider Department 10/25/22 [...] 11/02/2022 10:08 AM Signed [facility] Martin Silva Department of Cardiovascular Medicine SECTION OF CARDIOVASCULAR IMAGING OUTPATIENT VISIT DATE October 26, 2022 OUTPATIENT VISIT TYPE ESTABLISHED PRIMARY CARE PHYSICIAN: Francisca Thompson MD [address] [place] [address] REFERRING PHYSICIAN: Andreas Del Cid [id number] [facility] [address] CHIEF COMPLAINT: Follow up HISTORY OF PRESENT [...] (gastroesophageal reflux disease) Heart failure, acute systolic ([facility]) Hypertension Hypothyroid Myocardial infarct, old Occlusion and stenosis of carotid artery without mention of cerebral infarction Prostate cancer ([facility]) 2020 PVD (peripheral vascular disease) ([facility]) 11/17/2012 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 Systolic heart failure ([facility]) Thyroid disorder Ventricular tachycardia 04/28/2012 PAST SURGICAL [...] Artery Disease Father Heart Attack Father fatal MD at age 77 other (atrial fibrillation) Mother other (CHF) Mother other (Other) Mother at age 96 Ischemic Heart Disease Brother CABGx6 first at age 72 No Known Problems Daughter No Known Problems Daughter No Known Problems Daughter other (Other) Other paternal cousin at age 50 of MD ALLERGIES: ALLERGIES Allergen Reactions Latex Rash Adhesive [...] care, B (more content not included)... Normal [facility] Comprehensive metabolic 2000 panelon 10-25-2022 Albumin [Mass/Vol] 4.0 g/dL Normal 3.9-4.9 [facility] Comment on above: Order Comment: Speci men Type: BLOOD SPECIMENOrdering Facility: [facility] Address: [address] [place] [address] Performed By: #### 2 4323-8 ####[facility] [id number] [place] [address] [place] ALP [Catalytic activity/Vol] 103 U/L Normal 38-113 [facility] Comment on above: Order Comment: Speci men Type: BLOOD SPECIMENOrdering Facility: [facility] Address: [address] [place] [address] Performed By: #### 2 4323-8 ####[facility] [id number] [place] [address] [place] ALT [Catalytic activity/Vol] 15 U/L Normal 10-54 [facility] Comment on above: Order Comment: Speci men Type: BLOOD SPECIMENOrdering Facility: [facility] Address: [address] [place] [address] Performed By: #### 2 4323-8 ####[facility] [id number] [place] [address] [place] Anion gap [Moles/Vol] 17 mmol/L Normal 9-18 [facility] Comment on above: Order Comment: Speci men Type: BLOOD SPECIMENOrdering Facility: [facility] Address: [address] [address] Performed By: #### 2 4323-8 ####[facility] [id number] [place] [address] [place] AST [Catalytic activity/Vol] 26 U/L Normal 14-40 [facility] Comment on above: Order Comment: Speci men Type: BLOOD SPECIMENOrdering Facility: [facility] Address: [address] [place] [address] Performed By: #### 2 4323-8 ####[facility] [id number] [place] [address] [place] Bilirubin [Mass/Vol] 0.6 mg/dL Normal 0.2-1.3 [facility] Comment on above: Order Comment: Speci men Type: BLOOD SPECIMENOrdering Facility: [facility] Address: [address] [place] [address] Performed By: #### 2 4323-8 ####[facility] [id number] [place] [address] [place] Calcium [Mass/Vol] 10.2 mg/dL Normal 8.5-10.2 [facility] Comment on above: Order Comment: Speci men Type: BLOOD SPECIMENOrdering Facility: [facility] Address: [address] [place] [address] Performed By: #### 2 4323-8 ####[facility] [id number] [place] [address] [place] Chloride [Moles/Vol] 103 mmol/L Normal 97-105 [facility] Comment on above: Order Comment: Speci men Type: BLOOD SPECIMENOrdering Facility: [facility] Address: [address] [place], [place] [address] Performed By: #### 2 4323-8 ####[facility] [id number] [place] [address] [place] CO2 [Moles/Vol] 20 mmol/L Low 22-30 [facility] Comment on above: Order Comment: Speci men Type: BLOOD SPECIMENOrdering Facility: [facility] Address: [address] [place] [address] Performed By: #### 2 4323-8 ####[facility] [id number] [place] [address] [place] Creatinine [Mass/Vol] 1.89 mg/dL High 0.73-1.22 [facility] Comment on above: Order Comment: Speci men Type: BLOOD SPECIMENOrdering Facility: [facility] Address: [address] [place] [address] Performed By: #### 2 4323-8 ####[facility] [id number] [place] [address] [place] ESTIMATED GLOMERULAR FILTRATION RATE 35 mL/min/1.73m??? Low >=60 [facility] Comment on above: Order Comment: Speci men Type: BLOOD SPECIMENOrdering Facility: [facility] Address: [address] [place] [address] Result Comment: Etta mated Glomerular Filtration Rate [...] actual GFR. Performed By: #### 2 4323-8 ####[facility] [id number] [place] [address] [place] Glucose [Mass/Vol] 103 mg/dL High 74-99 [facility] Comment on above: Order Comment: Speci men Type: BLOOD SPECIMENOrdering Facility: [facility] Address: [address] [place] [address] Result Comment: The [place] [employer] (ADA) provides guidance for cutoff [...] Standards of Medical Care in Diabetes 2016, [place] [employer]. Diabetes Care. 2016.39(Suppl 1). Performed By: #### 2 4323-8 ####[facility] [id number] [place] [address] [place] Potassium [Moles/Vol] 5.5 mmol/L High 3.7-5.1 [facility] Comment on above: Order Comment: Speci men Type: BLOOD SPECIMENOrdering Facility: [facility] Address: [address] [place] [address] Performed By: #### 2 4323-8 ####[facility] [id number] [place] [address] [place] Protein [Mass/Vol] 7.7 g/dL Normal 6.3-8.0 [facility] Comment on above: Order Comment: Rozi men Type: BLOOD SPECIMENOrdering Facility: [facility] Address: [address] [address] Performed By: #### 2 4323-8 ####[facility] [id number] [place] [address] [place] Sodium [Moles/Vol] 140 mmol/L Normal 136-144 [facility] Comment on above: Order Comment: Speci men Type: BLOOD SPECIMENOrdering Facility: [facility] Address: [address] [place] [address] Performed By: #### 2 4323-8 ####[facility] [id number] [place] [address] [place] Urea nitrogen [Mass/Vol] 40 mg/dL High 9-24 [facility] Comment on above: Order Comment: Speci men Type: BLOOD SPECIMENOrdering Facility: [facility] Address: [address] [facility] [place] [id number] Performed By: #### 2 4323-8 ####[facility] [id number] [id number] [id number] [place] GLUCOSE, BLOOD (POC)on 10-25 Glucose [Mass/Vol] 94 mg/dL 74 - 99 mg/dL [facility] Glucose [Mass/Vol] 101 mg/dL Abnormal 74 - 99 mg/dL [facility] NM PET/CT CARD PERF REST/STR ESSon 10-25-2022 [place] PET/CT CARD PERF REST/STRESS * * *Final Report* * * DATE OF EXAM: Oct 25 2022 3:26PM [facility] 0109 - [place] PET/CT CARD PERF REST/STRESS / PROCEDURE REASON: multiple diagnoses * * * * Physician Interpretation * * * * Stress Gin Feeder Report: [facility] GOLDIE-2 Date of service: 10/25/2022 1:23:04 [...] the blood glucose was 101 mg/dl. [facility] [place] Date of service: 10/25/2022 1:23:04 PM Ordering [...] moderately decreased. Stress Test Findings: Positron Emission Narinedr Test Findings: Comment: Myocardial blood flow not reported due to low EF. Final [facility] Report: [facility] Date of service: 10/25/2022 1:23:04 PM [facility] interpreting physician: Cindy Prince MD PATIENT: Name: MR. JOSÉ MIGUEL ROTH (more content not included)... Normal [facility] PET/CT CARDIAC VIABILITYo n 10-25-2022 [place] PET/CT CARDIAC VIABILITY * * *Final Report* * * DATE OF EXAM: Oct 25 2022 3:26PM [facility] 0102 - [place] PET/CT CARDIAC VIABILITY / PROCEDURE REASON: multiple diagnoses * * * * Physician Interpretation * * * * Stress Gin Feeder Report: [facility] GOLDIE-2 Date of service: 10/25/2022 1:23:04 [...] rest, the blood glucose was 101 mg/dl. [facility] Date of service: 10/25/2022 1:23:04 PM [...] reported due to low EF. Final [place] [facility] Report: [facility] Date of service: 10/25/2022 1:23:04 PM [facility] interpreting physician: Cindy Prince MD PATIENT: Name: MR. JOSÉ MIGUEL Fenton IRA Gallardo (more content not included)... Normal [facility] NT-proBNP SerPl-ncon 10-25 Natriuretic peptide.B prohormone N-Terminal [Mass/Vol] 5553 pg/mL High <450 [facility] Comment on above: Order Comment: Speci men Type: BLOOD SPECIMENOrdering Facility: [facility] Address: [address] [place] [address] Performed By: #### 3 3762-6 ####[facility] [id number] [address] [place] No Panel Informationon 10-25 [facility] BNPon 08-30-2022 Natriuretic peptide B (Bld) [Mass/Vol] 5149.0 pg/mL Critically high <=1,800.0 [facility] Comment on above: Performed By: #### B MP, BNP #### [facility] [address] [address] [address] Silva Burnett PROF CHEM 8 (BAS METB)on Anion gap [Moles/Vol] 9.3 mmol/L Normal [facility] Comment on above: Performed By: #### B MP, BNP #### [facility] [address] [place] [address] Dr. Silva Burnett Calcium [Mass/Vol] 9.5 mg/dL Normal 8.5-10.1 [facility] Comment on above: Performed By: #### B MP, BNP #### [facility] [address] [place] [address] Dr. Silva Burnett Chloride [Moles/Vol] 103 mmol/L Normal 98-107 [facility] Comment on above: Performed By: #### B MP, BNP #### [facility] [address] [place] [address] Dr. Silva Burnett CO2 [Moles/Vol] 30.2 mmol/L Normal 21.0-32.0 [facility] Comment on above: Performed By: #### B MP, BNP #### [facility] [address] [place] [address] Dr. Silva Burnett Creatinine [Mass/Vol] 1.86 mg/dL Critically high 0.70-1.30 [facility] Comment on above: Performed By: #### B MP, BNP #### [facility] [address] [place] [address] Dr. Silva Burnett EGFR-AF PALESTINIAN 43 mL/min/1.73m2 Critically low >=60 [facility] Comment on above: Performed By: #### B MP, BNP #### [facility] [address] [place] [address] Dr. Silva Burnett EGFR-NON AF PALESTINIAN 35 mL/min/1.73m2 Critically low >=60 [facility] Comment on above: Performed By: #### B MP, BNP #### [facility] [address] [place] [address] Dr. Silva Burnett Glucose [Mass/Vol] 108 mg/dL Critically high 74-106 [facility] Comment on above: Performed By: #### B MP, BNP #### [facility] [address] [place] [address] Dr. Silva Burnett Potassium [Moles/Vol] 4.5 mmol/L Normal 3.5-5.1 [facility] Comment on above: Performed By: #### B MP, BNP #### [facility] [address] [address] [address] Silva Burnett Sodium [Moles/Vol] 138 mmol/L Normal 136-145 [facility] Comment on above: Performed By: #### B MP, BNP #### [facility] [address] [address] [address] Silva Burnett Urea nitrogen [Mass/Vol] 27.0 mg/dL Critically high 7.0-18.0 [facility] Comment on above: Performed By: #### B MP, BNP #### [facility] [address] [address] [address] Silva Burnett Urea nitrogen/Creatinine [Mass ratio] 14.5 mg/mg Normal [facility] Comment on above: Performed By: #### B MP, BNP #### [facility] [address] [address] [address] Silva Burnett ICD REMOTE CHECKon 2 AV Delay Adaptive Paced Minimum (ms) 200 ms [facility] AV Delay Adaptive Sensed Minimum (ms) 170 ms [facility] Bj RA Pacing Amplitude (volts) 2 V [facility] Bj RA Pacing Polarity BI [facility] Bj RA Pacing Pulse Width (ms) 0.5 ms [facility] Bj RA Sensing Amplitude (mvolts) 0.25 mV [facility] Bj RA Sensing Polarity BI [facility] Bj RV Pacing Amplitude (volts) 2 V [facility] Bj RV Pacing Polarity BI [facility] Bj RV Pacing Pulse Width (ms) 0.5 ms [facility] Bj RV Sensing Amplitude (mvolts) 0.3 mV [facility] Bj RV Sensing Polarity BI [facility] Detection Configuration (Vent) 2 - Zone [facility] FastVT_Detection Interval 250 ms [facility] FastVT_Therapy Configuration 1 ATP(s) + 8 Shock(s) [facility] ICD FastVT DetectionStatus ENABLED [facility] ICD-AMS EPISODES 170 {beats}/min [facility] ICD-ATP Episodes (Vent) 0 [facility] ICD-ATRIALFIBRILLAT ION 0 [facility] ICD-ATRIALTACHYCARD IA 1 [facility] ICD-Device Mfg BSX [facility] ICD-Fast Ventricular Tachycardia 1 [facility] ICD-LEADIMPEDANCEAT RIAL 743 ohm [facility] ICD-Percent Pacing (Atrial) 0 % [facility] ICD-Percent Pacing (Vent) 0 % [facility] ICD-Shocks Aborted (Vent) 0 [facility] POO-YSAABU-HURYGDKG D 0 [facility] ICD-SHOCKSABORTED 0 [facility] ICD-SHOCKSDELIVERED VENTRICULAR 0 [facility] ICD-Ventricular Fibrillation 0 [facility] Lead Impedance (RV) 431 ohm [facility] Lead Impedance High Voltage 48 ohm [facility] Lead1 Mfg BSX [facility] Lead2 Mfg BSX [facility] Location RV [facility] Location RA [facility] Lower Rate (bpm) 50 {beats}/min [facility] Max Sensor Rate (bpm) 130 {beats}/min [facility] MDT_PROG_TACHY_ZONE _DETECTIONS_STATUS ENABLED [facility] Model D142 INOGEN [facility] Model 0675 [place] 4-Front [facility] Model 7741 Ingevity MRI [facility] Pacing Mode DDDR [facility] Serial Number [id number] [facility] Serial Number [id number] [facility] Serial Number [id number] [facility] Test Charge Energy 23 J [facility] Test Charge Time 10.[address] [facility] Therapy Status (Vent) Enabled [facility] Thresh RA Capture Amplitude (volts) 0.6 V [facility] Thresh RA Capture Duration (ms) 0.5 ms [facility] Thresh RV Capture Amplitude (VOLTS) 0.5 V [facility] Thresh RV Capture Duration (MS) 0.5 ms [facility] Tracking Rate (bpm) 130 {beats}/min [facility] VF Zone Detection Interval 250 ms [facility] VF Zone Therapy Configuration 1 ATP(s) + 8 Shock(s) [facility] No Panel Informationon 08-07 BLANK _ [facility] ICD-ATRIALTACHYCARD IA 0 [facility] ICD-Fast Ventricular Tachycardia 0 [facility] Implant Date 03/24/2019 [facility] BNPon 07-23-2022 Natriuretic peptide B (Bld) [Mass/Vol] 5638.0 pg/mL Critically high <=1,800.0 [facility] Comment on above: Performed By: #### B MP, BNP, LIPID #### [facility] [address] [address] [address] Silva Burnett LIPID PROFILEon 07-23-2022 CHOL-HDL RATIO NORM SEE BELOW Normal [facility] Comment on above: Result Comment: 3.3 - 4.4 LOW RISK 4.4 - 7.1 AVERAGE RISK 7.1 - 11.0 MODERATE RISK >11.0 HIGH RISK Performed By: #### B MP, BNP, LIPID #### [facility] [address] [address] [address] Silva Burnett Cholesterol [Mass/Vol] 126 mg/dL Normal <=200 [facility] Comment on above: Performed By: #### B MP, BNP, LIPID #### [facility] [address] [address] [address] Silva Burnett Cholesterol in HDL [Mass/Vol] 51 mg/dL Normal 40-60 [facility] Comment on above: Performed By: #### B MP, BNP, LIPID #### [facility] [address] [address] [address] Silva Burnett Cholesterol in LDL [Mass/Vol] 61.4 mg/dL Normal [facility] Comment on above: Performed By: #### B MP, BNP, LIPID #### [facility] [address] [address] [address] Silva Burnett Cholesterol.total/C holesterol in HDL [Mass ratio] 2.5 {ratio} Normal [facility] Comment on above: Performed By: #### B MP, BNP, LIPID #### [facility] [address] [address] [address] Silva Burnett HDL NORMAL > or = 60 mg/dl - LO W CARDIOVASCULAR RISK <40 mg/dl - HIGH CARDIOVASCULAR RISK Normal [facility] Comment on above: Performed By: #### B MP, BNP, LIPID #### [facility] [address] [address] [address] Silva Burnett LDL CALC NORMAL SEE BELOW Normal [facility] Comment on above: Result Comment: <100 mg/dl OPTIMAL 100 - 129 mg/dl NEAR OR ABOVE OPTIMAL 130 - 159 mg/dl BORDERLINE HIGH 160 - 189 mg/dl HIGH >190 mg/dl VERY HIGH Performed By: #### B MP, BNP, LIPID #### [facility] [address] [place] [address] Dr. Silva Burnett Triglyceride [Mass/Vol] 68 mg/dL Normal <=150 [facility] Comment on above: Performed By: #### B MP, BNP, LIPID #### [facility] [address] [place] [address] Dr. Silva Burnett VLDL CALC 13.6 mg/dL Normal [facility] Comment on above: Performed By: #### B MP, BNP, LIPID #### [facility] [address] [place] [address] Dr. Silva Burnett PROF CHEM 8 (BAS METB)on Anion gap [Moles/Vol] 10.2 mmol/L Normal [facility] Comment on above: Performed By: #### B MP, BNP, LIPID #### [facility] [address] [place] [address] Dr. Silva Burnett Calcium [Mass/Vol] 9.3 mg/dL Normal 8.5-10.1 [facility] Comment on above: Performed By: #### B MP, BNP, LIPID #### [facility] [address] [place] [address] Dr. Silva Burnett Chloride [Moles/Vol] 102 mmol/L Normal 98-107 [facility] Comment on above: Performed By: #### B MP, BNP, LIPID #### [facility] [address] [place] [address] Dr. Silva Burnett CO2 [Moles/Vol] 29.7 mmol/L Normal 21.0-32.0 [facility] Comment on above: Performed By: #### B MP, BNP, LIPID #### [facility] [address] [place] [address] Dr. Silva Burnett Creatinine [Mass/Vol] 1.68 mg/dL Critically high 0.70-1.30 [facility] Comment on above: Performed By: #### B MP, BNP, LIPID #### [facility] [address] [address] [address] Silva Burnett EGFR-AF PALESTINIAN 48 mL/min/1.73m2 Critically low >=60 [facility] Comment on above: Performed By: #### B MP, BNP, LIPID #### [facility] [address] [address] [address] Silva Burnett EGFR-NON AF PALESTINIAN 40 mL/min/1.73m2 Critically low >=60 [facility] Comment on above: Performed By: #### B MP, BNP, LIPID #### [facility] [address] [address] [address] Silva Burnett Glucose [Mass/Vol] 97 mg/dL Normal 74-106 [facility] Comment on above: Performed By: #### B MP, BNP, LIPID #### [facility] [address] [place] [address] Dr. Silva Burnett Potassium [Moles/Vol] 3.9 mmol/L Normal 3.5-5.1 [facility] Comment on above: Performed By: #### B MP, BNP, LIPID #### [facility] [address] [place] [address] Dr. Silva Burnett Sodium [Moles/Vol] 138 mmol/L Normal 136-145 [facility] Comment on above: Performed By: #### B MP, BNP, LIPID #### [facility] [address] [place] [address] Dr. Silva Burnett Urea nitrogen [Mass/Vol] 28.0 mg/dL Critically high 7.0-18.0 [facility] Comment on above: Performed By: #### B MP, BNP, LIPID #### [facility] [address] [place] [address] Dr. Silva Burnett Urea nitrogen/Creatinine [Mass ratio] 16.7 mg/mg Normal [facility] Comment on above: Performed By: #### B MP, BNP, LIPID #### [facility] [address] [place] [address] Dr. Silva Burnett FREE T3on 07-18-2022 FREE T3 3.48 pg/mlL Normal 2.18-3.98 [facility] Comment on above: Performed By: #### V ITAD #### [facility] [address] [place] [address] Dr. Silva Burnett FREE T4on 07-18-2022 Free T4 [Mass/Vol] 0.76 ng/dL Normal 0.76-1.46 [facility] Comment on above: Performed By: #### F T4 #### [facility] [address] [address] [address] Silva Burnett TSHon 07-18-2022 TSH 0.074 uIU/mL Critically low 0.358-3.740 [facility] Comment on above: Performed By: #### V ITAD #### [facility] [address] [place] [address] Dr. Silva Burnett TESTOSTERONE, FREE,DIRECT, T OTALon 07-02-2022 Free Testosterone(Direct ) 1.2 pg/mL Critically low 6.6-18.1 [facility] Comment on above: Result Comment: Perf ormed at: BN Performed By: #### B MP, BNP #### [facility] [address] [place] [address] Dr. Silva Burnett Testosterone [Mass/Vol] 103 ng/dL Critically low 264-916 [facility] Comment on above: Result Comment: Adul t male reference interval is based on a population of healthy nonobese males (BMI <30) between 19 and 39 years old. Keisha, et.al. JCEM 2017,102;4422-3238. PMID: [id number]. Performed at: CB Performed By: #### B MP, BNP #### [facility] [address] [place] [address] Dr. Silva Burnett CORTISOLon 06-29-2022 Cortisol 9.8 ug/dL Normal [facility] Comment on above: Result Comment: Dale isol AM 6.2 - 19.4 Cortisol PM 2.3 - 11.9 Performed By: #### B MP, BNP #### [facility] [address] [place] [address] Dr. Silva Burnett BNPon 06-27-2022 Natriuretic peptide B (Bld) [Mass/Vol] 5384.0 pg/mL Critically high <=1,800.0 [facility] Comment on above: Performed By: #### B MP, BNP #### [facility] [address] [place] [address] Dr. Silva Burnett CBC AUTO DIFFon 06-27-2022 BASO # 0.0 103/ul Normal 0.0-0.1 [facility] Comment on above: Performed By: #### B MP, BNP #### [facility] [address] [place] [address] Dr. Silva Burnett Basophils/100 WBC (Bld) 0.6 % Normal 0.2-2.0 [facility] Comment on above: Performed By: #### B MP, BNP #### [facility] [address] [place] [address] Dr. Silva Burnett EO # 0.4 103/ul Normal 0.0-0.7 [facility] Comment on above: Performed By: #### B MP, BNP #### [facility] [address] [place] [address] Dr. Silva Burnett Eosinophils/100 WBC (Bld) 8.0 % Critically high 0.9-7.0 [facility] Comment on above: Performed By: #### B MP, BNP #### [facility] [address] [place] [address] Dr. Silva Burnett Erythrocyte distribution width (RBC) [Ratio] 15.3 % Critically high 11.0-15.0 [facility] Comment on above: Performed By: #### B MP, BNP #### [facility] [address] [place] [address] Dr. Silva Burnett Hematocrit (Bld) [Volume fraction] 41.0 % Critically low 42.0-54.0 [facility] Comment on above: Performed By: #### B MP, BNP #### [facility] [address] [place] [address] Dr. Silva Burnett Hemoglobin (Bld) [Mass/Vol] 12.8 g/dL Critically low 14.0-18.0 [facility] Comment on above: Performed By: #### B MP, BNP #### [facility] [address] [place] [address] Dr. Silva Burnett IG # 0.02 10e3/ul Normal 0.00-0.03 [facility] Comment on above: Performed By: #### B MP, BNP #### [facility] [address] [place] [address] Dr. Silva Burnett IG % 0.4 % Normal 0.0-0.5 [facility] Comment on above: Performed By: #### B MP, BNP #### [facility] [address] [place] [address] Dr. Silva Burnett LYMPH # 1.3 103/ul Normal 1.2-3.8 [facility] Comment on above: Performed By: #### B MP, BNP #### [facility] [address] [place] [address] Dr. Silva Burnett Lymphocytes/100 WBC (Bld) 25.8 % Normal 20.5-60.0 [facility] Comment on above: Performed By: #### B MP, BNP #### [facility] [address] [place] [address] Dr. Silva Burnett MANUAL DIFF REQ NO Normal [facility] Comment on above: Performed By: #### B MP, BNP #### [facility] [address] [place] [address] Dr. Silva Burnett MCH (RBC) [Entitic mass] 28.9 pg Normal 25.9-34.0 [facility] Comment on above: Performed By: #### B MP, BNP #### [facility] [address] [place] [address] Dr. Silva Burnett MCHC (RBC) [Mass/Vol] 31.2 g/dL Normal 29.9-35.2 [facility] Comment on above: Performed By: #### B MP, BNP #### [facility] [address] [place] [address] Dr. Silva Burnett MCV (RBC) [Entitic vol] 92.6 fL Normal 80.0-94.0 [facility] Comment on above: Performed By: #### B MP, BNP #### [facility] [address] [address] [address] Silva Burnett MONO # 0.6 103/ul Normal 0.3-0.8 [facility] Comment on above: Performed By: #### B MP, BNP #### [facility] [address] [address] [address] Silva Burnett Monocytes/100 WBC (Bld) 11.1 % Normal 1.7-12.0 [facility] Comment on above: Performed By: #### B MP, BNP #### [facility] [address] [place] [address] Dr. Silva Burnett NEUT # 2.8 103/ul Normal 1.4-6.5 [facility] Comment on above: Performed By: #### B MP, BNP #### [facility] [address] [place] [address] Dr. Silva Burnett Neutrophils/100 WBC (Bld) 54.1 % Normal 43.0-75.0 [facility] Comment on above: Performed By: #### B MP, BNP #### [facility] [address] [place] [address] Dr. Silva Burnett Platelet mean volume (Bld) [Entitic vol] 10.0 fL Normal 9.5-13.5 [facility] Comment on above: Performed By: #### B MP, BNP #### [facility] [address] [place] [address] Dr. Silva Burnett PLT 144 103/ul Critically low 150-450 [facility] Comment on above: Performed By: #### B MP, BNP #### [facility] [address] [place] [address] Dr. Silva Burnett RBC 4.43 106/ul Critically low 4.70-6.10 [facility] Comment on above: Performed By: #### B MP, BNP #### [facility] [address] [place] [address] Dr. Silva Burnett WBC 5.1 103/ul Normal 4.0-11.0 [facility] Comment on above: Performed By: #### B MP, BNP #### [facility] [address] [address] [address] Silva Burnett PROF CHEM 8 (BAS METB)on Anion gap [Moles/Vol] 10.2 mmol/L Normal [facility] Comment on above: Performed By: #### B MP, BNP #### [facility] [address] [address] [address] Silva Burnett Calcium [Mass/Vol] 8.9 mg/dL Normal 8.5-10.1 [facility] Comment on above: Performed By: #### B MP, BNP #### [facility] [address] [address] [address] Silva Burnett Chloride [Moles/Vol] 104 mmol/L Normal 98-107 [facility] Comment on above: Performed By: #### B MP, BNP #### [facility] [address] [place] [address] Dr. Silva Burnett CO2 [Moles/Vol] 27.1 mmol/L Normal 21.0-32.0 [facility] Comment on above: Performed By: #### B MP, BNP #### [facility] [address] [place] [address] Dr. Silva Burnett Creatinine [Mass/Vol] 1.61 mg/dL Critically high 0.70-1.30 [facility] Comment on above: Performed By: #### B MP, BNP #### [facility] [address] [place] [address] Dr. Silva Burnett EGFR-AF PALESTINIAN 50 mL/min/1.73m2 Critically low >=60 [facility] Comment on above: Performed By: #### B MP, BNP #### [facility] [address] [place] [address] Dr. Silva Burnett EGFR-NON AF PALESTINIAN 41 mL/min/1.73m2 Critically low >=60 [facility] Comment on above: Performed By: #### B MP, BNP #### [facility] [address] [address] [address] Silva Burnett Glucose [Mass/Vol] 89 mg/dL Normal 74-106 [facility] Comment on above: Performed By: #### B MP, BNP #### [facility] [address] [place] [address] Dr. Silva Burnett Potassium [Moles/Vol] 4.3 mmol/L Normal 3.5-5.1 [facility] Comment on above: Performed By: #### B MP, BNP #### [facility] [address] [place] [address] Dr. Silva Burnett Sodium [Moles/Vol] 137 mmol/L Normal 136-145 [facility] Comment on above: Performed By: #### B MP, BNP #### [facility] [address] [place] [address] Dr. Silva Burnett Urea nitrogen [Mass/Vol] 28.0 mg/dL Critically high 7.0-18.0 [facility] Comment on above: Performed By: #### B MP, BNP #### [facility] [address] [place] [address] Dr. Silva Burnett Urea nitrogen/Creatinine [Mass ratio] 17.4 mg/mg Normal [facility] Comment on above: Performed By: #### B MARQUEZ, BNP #### [facility] [address] [place] [address] Dr. Silva Burnett VITAMIN D 25 OHon 06-27-2022 VIT D 25-OH 85.2 ng/mL Normal [facility] Comment on above: Performed By: #### V ITAD #### [facility] [address] [place] [address] Dr. Silva Burnett VIT D RANGES SEE BELOW Normal [facility] Comment on above: Result Comment: <20 ng/mL Vit D deficient 20 - <30 ng/mL Vit D insufficient 30 - 100 ng/mL Vit D sufficient >100 ng/mL Potential Toxicity Performed By: #### V ITAD #### [facility] [address] [place] [address] Dr. Silva Burnett CREATININEon 06-14-2022 Creatinine [Mass/Vol] 1.71 mg/dL Critically high 0.70-1.30 [facility] Comment on above: Performed By: #### B MP, BNP #### [facility] [address] [place], [place] [address] Dr. Silva Burnett EGFR-AF PALESTINIAN 47 mL/min/1.73m2 Critically low >=60 [facility] Comment on above: Performed By: #### B MP, BNP #### [facility] [address] [place], [place] [address] Dr. Silva Burnett EGFR-NON AF PALESTINIAN 39 mL/min/1.73m2 Critically low >=60 [facility] Comment on above: Performed By: #### B MP, BNP #### [facility] [address] [place], [place] [address] Dr. Silva Burnett CTA NECK WO W [...] by: AYANA FERNANDEZ Date: 2022-06-14 16:39 Normal [facility] BASIC METABOLIC PANELon 09-0 7-2022 Calcium [Mass/Vol] 8.8 mg/dL Normal 8.6-10.3 [facility] Comment on above: Order Comment: No: D o not add to previous draw Performed By: #### 2 5508, 64838, 90203, 80056, 65269, 23542 #### [facility] [address] [place] [id number], [facility] Chloride [Moles/Vol] 103 mmol/L Normal 98-107 [facility] Comment on above: Order Comment: No: D o not add to previous draw Performed By: #### 2 5508, 70865, 30959, 46485, 61644, 17702 #### [facility] [address] [place] [address], [facility] CO2 [Moles/Vol] 28 mmol/L Normal 21-31 [facility] Comment on above: Order Comment: No: D o not add to previous draw Performed By: #### 2 5508, 74970, 46326, 34998, 62813, 89416 #### [facility] [address] [place] [id number], [facility] Creatinine [Mass/Vol] 1.47 mg/dL High 0.70-1.30 [facility] Comment on above: Order Comment: No: D o not add to previous draw Performed By: #### 2 5508, 71971, 11575, 96989, 69727, 34286 #### [facility] [address] [place] [address], [facility] EGFR 48 ml/min/1.73sq m Abnormal >60 [facility] Comment on above: Order Comment: No: D o not add to previous draw Result Comment: [facility]'s estimated glomerular filtration rate (eGFR) will [...] of individuals. Performed By: #### 2 5508, 52536, 78022, 28786, 10227, 28020 #### [facility] [address] [place] [address], [place] Glucose [Mass/Vol] 110 mg/dL High 70-100 [facility] Comment on above: Order Comment: No: D o not add to previous draw Performed By: #### 2 5508, 88047, 30556, 99882, 32415, 00191 #### [facility] [address] [place] [address], [facility] Potassium [Moles/Vol] 4.3 mmol/L Normal 3.5-5.1 [facility] Comment on above: Order Comment: No: D o not add to previous draw Performed By: #### 2 5508, 40105, 39578, 40875, 88286, 78615 #### [facility] [address] [place] [address], [place] Sodium [Moles/Vol] 136 mmol/L Normal 136-145 [facility] Comment on above: Order Comment: No: D o not add to previous draw Performed By: #### 2 5508, 93352, 07810, 60807, 60478, 50350 #### [facility] [address] [place] [address], [place] Urea nitrogen [Mass/Vol] 35 mg/dL High 7-25 [facility] Comment on above: Order Comment: No: D o not add to previous draw Performed By: #### 2 5508, 26091, 31391, 00689, 02549, 16530 #### [facility] [address] [place] [address], [place] MAGNESIUM BLOODon 05-23-2022 Magnesium [Mass/Vol] 2.2 mg/dL Normal 1.9-2.7 [facility] Comment on above: Order Comment: No: D o not add to previous draw Performed By: #### 2 5508, 69810, 09169, 24990, 40217, 46452 #### [facility] [address] [place] [address], [facility] APTTon 05-22-2022 aPTT Coag (Bld) [Time] 28.0 s Normal 25.0-35.0 [facility] Comment on above: Order Comment: No: [...] THIS PURPOSE. Performed By: #### 2 5508, 68741, 43331, 50958, 84366, 90502 #### [facility] [address] [place] [address], [facility] BASIC METABOLIC PANELon Calcium [Mass/Vol] 9.0 mg/dL Normal 8.6-10.3 [facility] Comment on above: Order Comment: No: D o not add to previous draw Performed By: #### 2 5508, 25023, 46544, 61305, 05958, 40533 #### [facility] [address] [place] [address], [facility] Chloride [Moles/Vol] 101 mmol/L Normal 98-107 [facility] Comment on above: Order Comment: No: D o not add to previous draw Performed By: #### 2 5508, 72578, 81792, 37594, 75151, 12016 #### [facility] [address] [place] [address], [place] CO2 [Moles/Vol] 29 mmol/L Normal 21-31 [facility] Comment on above: Order Comment: No: D o not add to previous draw Performed By: #### 2 5508, 36007, 15910, 71205, 49118, 42454 #### [facility] [address] [place] [address], [facility] Creatinine [Mass/Vol] 1.67 mg/dL High 0.70-1.30 [facility] Comment on above: Order Comment: No: D o not add to previous draw Performed By: #### 2 5508, 08295, 05613, 51221, 13539, 87796 #### [facility] [address] [place] [address], [facility] EGFR 41 ml/min/1.73sq m Abnormal >60 [facility] Comment on above: Order Comment: No: D o not add to previous draw Result Comment: [facility]'s estimated glomerular filtration rate (eGFR) will [...] of individuals. Performed By: #### 2 5508, 90110, 95253, 78698, 99091, 28847 #### [facility] [address] [place] [address], [place] Glucose [Mass/Vol] 94 mg/dL Normal 70-100 [facility] Comment on above: Order Comment: No: D o not add to previous draw Performed By: #### 2 5508, 16984, 85026, 29448, 72565, 57863 #### [facility] [address] [place] [address], [place] Potassium [Moles/Vol] 4.8 mmol/L Normal 3.5-5.1 [facility] Comment on above: Order Comment: No: D o not add to previous draw Performed By: #### 2 5508, 81599, 89487, 27747, 43954, 47255 #### [facility] [address] [place] [address], [facility] Sodium [Moles/Vol] 136 mmol/L Normal 136-145 [facility] Comment on above: Order Comment: No: D o not add to previous draw Performed By: #### 2 5508, 63034, 07982, 33462, 47273, 54339 #### [facility] [address] Urea nitrogen [Mass/Vol] 39 mg/dL High 7-25 [facility] Comment on above: Order Comment: No: D o not add to previous draw Performed By: #### 2 5508, 24648, 26933, 20489, 75113, 05474 #### [facility] [address] MAGNESIUM BLOODon 05-22-2022 Magnesium [Mass/Vol] 1.8 mg/dL Low 1.9-2.7 [facility] Comment on above: Order Comment: No: D o not add to previous draw Performed By: #### 2 5508, 77590, 35432, 14413, 50904, 85127 #### [facility] [address] APTTon 05-21-2022 aPTT Coag (Bld) [Time] 30.8 s Normal 25.0-35.0 [facility] Comment on above: Order Comment: No: [...] THIS PURPOSE. Performed By: #### 2 5508, 94508, 33042, 15122, 82177, 04123 #### [facility] [address] [place] [address], [facility] BASIC METABOLIC PANELon 09-0 -2021 Calcium [Mass/Vol] 8.8 mg/dL Normal 8.6-10.3 [facility] Comment on above: Order Comment: No: D o not add to previous draw Performed By: #### 2 5508, 74451, 00174, 15808, 48860, 65480 #### [facility] [address] [place] [address], [place] Chloride [Moles/Vol] 103 mmol/L Normal 98-107 [facility] Comment on above: Order Comment: No: D o not add to previous draw Performed By: #### 2 5508, 56527, 02607, 73046, 09920, 28367 #### [facility] [address] [place] [address], [place] CO2 [Moles/Vol] 26 mmol/L Normal 21-31 [facility] Comment on above: Order Comment: No: D o not add to previous draw Performed By: #### 2 5508, 83170, 11905, 81597, 17582, 46433 #### [facility] [address] [place] [address], [place] Creatinine [Mass/Vol] 1.47 mg/dL High 0.70-1.30 [facility] Comment on above: Order Comment: No: D o not add to previous draw Performed By: #### 2 5508, 42370, 78189, 83494, 46581, 07850 #### [facility] [address] [place] [address], [place] EGFR 48 ml/min/1.73sq m Abnormal >60 [facility] Comment on above: Order Comment: No: D o not add to previous draw Result Comment: [facility]'s estimated glomerular filtration rate (eGFR) will [...] of individuals. Performed By: #### 2 5508, 38975, 69510, 40818, 82731, 86861 #### [facility] [address] [place] [address], [place] Glucose [Mass/Vol] 88 mg/dL Normal 70-100 [facility] Comment on above: Order Comment: No: D o not add to previous draw Performed By: #### 2 5508, 47828, 88901, 39769, 75839, 64142 #### [facility] [address] [place] [address], [place] Potassium [Moles/Vol] 3.9 mmol/L Normal 3.5-5.1 [facility] Comment on above: Order Comment: No: D o not add to previous draw Performed By: #### 2 5508, 63379, 45323, 79546, 86722, 06754 #### [facility] [address] [place] [address], [place] Sodium [Moles/Vol] 137 mmol/L Normal 136-145 [facility] Comment on above: Order Comment: No: D o not add to previous draw Performed By: #### 2 5508, 43852, 37748, 67498, 85264, 18743 #### [facility] [address] [place] [address], [place] Urea nitrogen [Mass/Vol] 45 mg/dL High 7-25 [facility] Comment on above: Order Comment: No: D o not add to previous draw Performed By: #### 2 5508, 05290, 76298, 51647, 76932, 50641 #### [facility] [address] CBC COMPLETE BLOOD COUNTon 0 05-21-2022 Erythrocyte distribution width (RBC) [Ratio] 14.4 % Normal 11.5-15.0 [facility] Comment on above: Order Comment: No: D o not add to previous draw Performed By: #### 2 5508, 99465, 32450, 49948, 90759, 20774 #### [facility] [address] [place] [address], [facility] Hematocrit (Bld) [Volume fraction] 40.8 % Normal 39.0-50.0 [facility] Comment on above: Order Comment: No: D o not add to previous draw Performed By: #### 2 5508, 58113, 73168, 73696, 59677, 98414 #### [facility] [address] [place] [address], [facility] Hemoglobin (Bld) [Mass/Vol] 13.3 g/dL Normal 13.0-17.0 [facility] Comment on above: Order Comment: No: D o not add to previous draw Performed By: #### 2 5508, 79955, 20927, 79416, 64878, 83058 #### [facility] [address] [place] [address], [facility] MCH (RBC) [Entitic mass] 28.4 pg Normal 27.0-33.0 [facility] Comment on above: Order Comment: No: D o not add to previous draw Performed By: #### 2 5508, 54250, 87603, 78871, 22403, 66690 #### [facility] [address] [place] [address], [facility] MCHC (RBC) [Mass/Vol] 32.6 g/dL Normal 32.0-35.0 [facility] Comment on above: Order Comment: No: D o not add to previous draw Performed By: #### 2 5508, 01569, 35938, 77150, 12138, 81944 #### [facility] [address] [place] [address], [facility] MCV (RBC) [Entitic vol] 87.0 fL Normal 82.0-98.0 [facility] Comment on above: Order Comment: No: D o not add to previous draw Performed By: #### 2 5508, 55069, 56692, 27044, 85956, 99947 #### [facility] [address] [place] [address], [facility] Nucleated RBC/100 WBC (Bld) [Ratio] 0 % Normal 0-0 [facility] Comment on above: Order Comment: No: D o not add to previous draw Performed By: #### 2 5508, 39797, 25659, 08416, 25532, 66499 #### [facility] [address] [place] [place] [address], [facility] PLAT CNT 157 10*3/uL Normal 150-400 [facility] Comment on above: Order Comment: No: D o not add to previous draw Performed By: #### 2 5508, 97701, 27519, 44644, 73141, 53490 #### [facility] [address] [place] [id number], [facility] RBC (Bld) [#/Vol] 4.69 10*6/uL Normal 4.20-5.70 [facility] Comment on above: Order Comment: No: D o not add to previous draw Performed By: #### 2 5508, 76139, 38439, 10404, 75972, 83948 #### [facility] [address] [place] [address], [facility] WBC (Bld) [#/Vol] 6.19 10*3/uL Normal 4.00-10.60 [facility] Comment on above: Order Comment: No: D o not add to previous draw Performed By: #### 2 5508, 62103, 39389, 71119, 55997, 76713 #### [facility] [address] [place] [address], [facility] MAGNESIUM BLOODon 05-21-2022 Magnesium [Mass/Vol] 1.9 mg/dL Normal 1.9-2.7 [facility] Comment on above: Order Comment: No: D o not add to previous draw Performed By: #### 2 5508, 25010, 95488, 33629, 89461, 36567 #### [facility] [address] [place] [id number], [facility] APTTon 05-20-2022 aPTT Coag (Bld) [Time] 28.4 s Normal 25.0-35.0 [facility] Comment on above: Order Comment: No: [...] THIS PURPOSE. Performed By: #### 2 5508, 22871, 32571, 92975, 55950, 40088 #### [facility] [address] [place] [id number], [facility] BASIC METABOLIC PANELon Calcium [Mass/Vol] 9.0 mg/dL Normal 8.6-10.3 [facility] Comment on above: Order Comment: No: D o not add to previous draw Performed By: #### 1 0070, 55590, 77021 #### [facility] [address] [place] [address], [facility] Chloride [Moles/Vol] 105 mmol/L Normal 98-107 [facility] Comment on above: Order Comment: No: D o not add to previous draw Performed By: #### 1 0070, 26733, 38584 #### [facility] [address] [place] [address], [facility] CO2 [Moles/Vol] 26 mmol/L Normal 21-31 [facility] Comment on above: Order Comment: No: D o not add to previous draw Performed By: #### 1 0070, 25021, 13369 #### [facility] [address] [place] [address], [facility] Creatinine [Mass/Vol] 1.42 mg/dL High 0.70-1.30 [facility] Comment on above: Order Comment: No: D o not add to previous draw Performed By: #### 1 0070, , 74762 #### [facility] [address] [place] [address], [facility] EGFR 50 ml/min/1.73sq m Abnormal >60 [facility] Comment on above: Order Comment: No: D o not add to previous draw Result Comment: [facility]'s estimated glomerular filtration rate (eGFR) will [...] of individuals. Performed By: #### 1 0070, 72139, 02705 #### [facility] [address] [place] [address], [facility] Glucose [Mass/Vol] 107 mg/dL High 70-100 [facility] Comment on above: Order Comment: No: D o not add to previous draw Performed By: #### 1 0070, 62891, 24831 #### [facility] [address] [place] [address], [facility] Potassium [Moles/Vol] 3.9 mmol/L Normal 3.5-5.1 [facility] Comment on above: Order Comment: No: D o not add to previous draw Performed By: #### 1 0070, 18064, 58680 #### [facility] [address] [place] [id number], [facility] Sodium [Moles/Vol] 139 mmol/L Normal 136-145 [facility] Comment on above: Order Comment: No: D o not add to previous draw Performed By: #### 1 0070, 77250, 68701 #### [facility] [address] [place] [address], [facility] Urea nitrogen [Mass/Vol] 50 mg/dL High 7-25 [facility] Comment on above: Order Comment: No: D o not add to previous draw Performed By: #### 1 0070, 68798, 14710 #### [facility] [address] CBC COMPLETE BLOOD COUNTon 0 05-20-2022 Erythrocyte distribution width (RBC) [Ratio] 14.3 % Normal 11.5-15.0 [facility] Comment on above: Order Comment: No: D o not add to previous draw Performed By: #### 2 5508, 07485, 28017, 05217, 65513, 08445 #### [facility] [address] [place] [address], [facility] Hematocrit (Bld) [Volume fraction] 44.1 % Normal 39.0-50.0 [facility] Comment on above: Order Comment: No: D o not add to previous draw Performed By: #### 2 5508, 84768, 31339, 10527, 97602, 69323 #### [facility] [address] [place] [address], [facility] Hemoglobin (Bld) [Mass/Vol] 14.5 g/dL Normal 13.0-17.0 [facility] Comment on above: Order Comment: No: D o not add to previous draw Performed By: #### 2 5508, 42460, 00676, 69275, 25730, 91442 #### [facility] [address] [place] [address], [facility] IMM PLATELET FRAC 5.4 % Normal 0.8-6.3 [facility] Comment on above: Order Comment: No: D o not add to previous draw Performed By: #### 2 5508, 82428, 87283, 93138, 44050, 64553 #### [facility] [address] [place] [id number], [facility] MCH (RBC) [Entitic mass] 29.1 pg Normal 27.0-33.0 [facility] Comment on above: Order Comment: No: D o not add to previous draw Performed By: #### 2 5508, 90196, 72444, 70019, 89447, 38685 #### [facility] [address] [place] [address], [facility] MCHC (RBC) [Mass/Vol] 32.9 g/dL Normal 32.0-35.0 [facility] Comment on above: Order Comment: No: D o not add to previous draw Performed By: #### 2 5508, 97702, 60157, 98761, 68409, 10867 #### [facility] [address] [address], [facility] MCV (RBC) [Entitic vol] 88.6 fL Normal 82.0-98.0 [facility] Comment on above: Order Comment: No: D o not add to previous draw Performed By: #### 2 5508, 33885, 06058, 15570, 67959, 82053 #### [facility] [address] [place] [id number], [facility] Nucleated RBC/100 WBC (Bld) [Ratio] 0 % Normal 0-0 [facility] Comment on above: Order Comment: No: D o not add to previous draw Performed By: #### 2 5508, 18732, 36804, 36024, 00518, 49025 #### [facility] [address] [place] [address], [facility] PLAT CNT 138 10*3/uL Low 150-400 [facility] Comment on above: Order Comment: No: D o not add to previous draw Performed By: #### 2 5508, 25421, 25432, 81267, 15405, 62958 #### [facility] [address] [place] [address], [facility] RBC (Bld) [#/Vol] 4.98 10*6/uL Normal 4.20-5.70 [facility] Comment on above: Order Comment: No: D o not add to previous draw Performed By: #### 2 5508, 92489, 46151, 37009, 18283, 63202 #### [facility] [address] [place] [address], [facility] WBC (Bld) [#/Vol] 5.80 10*3/uL Normal 4.00-10.60 [facility] Comment on above: Order Comment: No: D o not add to previous draw Performed By: #### 2 5508, 12031, 59601, 35390, 95832, 72906 #### [facility] [address] [place] [address], [facility] MAGNESIUM BLOODon 05-20-2022 Magnesium [Mass/Vol] 2.0 mg/dL Normal 1.9-2.7 [facility] Comment on above: Order Comment: No: D o not add to previous draw Performed By: #### 1 0070, 81814, 44783 #### [facility] [address] [place] [address], [facility] PHOSPHORUS BLOODon Phosphate [Mass/Vol] 3.5 mg/dL Normal 2.5-5.0 [facility] Comment on above: Order Comment: No: D o not add to previous draw Performed By: #### 1 0070, 13443, 67493 #### [facility] [address] [place] [address], [facility] APTTon 05-19-2022 aPTT Coag (Bld) [Time] 30.3 s Normal 25.0-35.0 [facility] Comment on above: Order Comment: No: [...] THIS PURPOSE. Performed By: #### 2 5508, 16060, 24397, 75052, 82909, 46872 #### [facility] [address] [place] [address], [facility] BASIC METABOLIC PANELon Calcium [Mass/Vol] 8.5 mg/dL Low 8.6-10.3 [facility] Comment on above: Order Comment: No: D o not add to previous draw Performed By: #### 2 5508, 35027, 07443, 04946, 65420, 44750 #### [facility] [address] [place] [address], [facility] Chloride [Moles/Vol] 104 mmol/L Normal 98-107 [facility] Comment on above: Order Comment: No: D o not add to previous draw Performed By: #### 2 5508, 52473, 39422, 08794, 46027, 44536 #### [facility] [address] [place] [id number], [facility] CO2 [Moles/Vol] 24 mmol/L Normal 21-31 [facility] Comment on above: Order Comment: No: D o not add to previous draw Performed By: #### 2 5508, 29509, 01984, 31245, 03597, 95429 #### [facility] [address] [place] [id number], [facility] Creatinine [Mass/Vol] 2.02 mg/dL High 0.70-1.30 [facility] Comment on above: Order Comment: No: D o not add to previous draw Performed By: #### 2 5508, 94092, 07397, 23791, 84925, 87558 #### [facility] [address] [place] [address], [facility] EGFR 33 ml/min/1.73sq m Abnormal >60 [facility] Comment on above: Order Comment: No: D o not add to previous draw Result Comment: [facility]'s estimated glomerular filtration rate (eGFR) will [...] of individuals. Performed By: #### 2 5508, 44281, 35969, 65655, 46818, 94741 #### [facility] [address] [place] [address], [facility] Glucose [Mass/Vol] 121 mg/dL High 70-100 [facility] Comment on above: Order Comment: No: D o not add to previous draw Performed By: #### 2 5508, 36489, 67891, 19452, 91953, 43600 #### [facility] [address] [place] [address], [facility] Potassium [Moles/Vol] 3.1 mmol/L Low 3.5-5.1 [facility] Comment on above: Order Comment: No: D o not add to previous draw Performed By: #### 2 5508, 01098, 82955, 82970, 56705, 72267 #### [facility] [address] [place] [address], [place] Sodium [Moles/Vol] 137 mmol/L Normal 136-145 [facility] Comment on above: Order Comment: No: D o not add to previous draw Performed By: #### 2 5508, 59563, 90178, 91689, 31233, 02029 #### [facility] [address] [place] [address], [place] Urea nitrogen [Mass/Vol] 61 mg/dL High 7-25 [facility] Comment on above: Order Comment: No: D o not add to previous draw Performed By: #### 2 5508, 80047, 94802, 52266, 85088, 18472 #### [facility] [address] [place] [address], [facility] CBC COMPLETE BLOOD COUNTon 0 05-19-2022 Erythrocyte distribution width (RBC) [Ratio] 14.2 % Normal 11.5-15.0 [facility] Comment on above: Order Comment: No: D o not add to previous draw Performed By: #### 2 5508, 16368, 51131, 23551, 97182, 11795 #### [facility] [address] [place] [address], [facility] Hematocrit (Bld) [Volume fraction] 41.1 % Normal 39.0-50.0 [facility] Comment on above: Order Comment: No: D o not add to previous draw Performed By: #### 2 5508, 39016, 12370, 91316, 10134, 16358 #### [facility] [address] [place] [address], [facility] Hemoglobin (Bld) [Mass/Vol] 13.8 g/dL Normal 13.0-17.0 [facility] Comment on above: Order Comment: No: D o not add to previous draw Performed By: #### 2 5508, 32613, 35085, 11675, 63838, 94077 #### [facility] [address] [place] [address], [place] IMM PLATELET FRAC 4.8 % Normal 0.8-6.3 [facility] Comment on above: Order Comment: No: D o not add to previous draw Performed By: #### 2 5508, 45519, 80088, 71670, 79657, 36290 #### [facility] [address] [place] [address], [facility] MCH (RBC) [Entitic mass] 29.0 pg Normal 27.0-33.0 [facility] Comment on above: Order Comment: No: D o not add to previous draw Performed By: #### 2 5508, 82337, 00473, 33467, 34538, 68032 #### [facility] [address] [place] [address], [facility] MCHC (RBC) [Mass/Vol] 33.6 g/dL Normal 32.0-35.0 [facility] Comment on above: Order Comment: No: D o not add to previous draw Performed By: #### 2 5508, 68963, 66425, 40539, 51033, 02923 #### [facility] [address] [place] [address], [facility] MCV (RBC) [Entitic vol] 86.3 fL Normal 82.0-98.0 [facility] Comment on above: Order Comment: No: D o not add to previous draw Performed By: #### 2 5508, 65591, 22377, 32428, 92838, 63049 #### [facility] [address] [place] [address], [facility] Nucleated RBC/100 WBC (Bld) [Ratio] 0 % Normal 0-0 [facility] Comment on above: Order Comment: No: D o not add to previous draw Performed By: #### 2 5508, 59532, 73122, 79666, 38336, 28514 #### [facility] [address] [place] [address], [facility] PLAT CNT 116 10*3/uL Low 150-400 [facility] Comment on above: Order Comment: No: D o not add to previous draw Performed By: #### 2 5508, 62104, 55965, 07929, 80066, 95199 #### [facility] [address] [place] [address], [facility] RBC (Bld) [#/Vol] 4.76 10*6/uL Normal 4.20-5.70 [facility] Comment on above: Order Comment: No: D o not add to previous draw Performed By: #### 2 5508, 28528, 21957, 31192, 71411, 14011 #### [facility] [address] [place] [address], [facility] WBC (Bld) [#/Vol] 5.16 10*3/uL Normal 4.00-10.60 [facility] Comment on above: Order Comment: No: D o not add to previous draw Performed By: #### 2 5508, 81759, 28245, 68941, 51187, 76388 #### [facility] [address] Cardiovascular Lab Reporton 05-19-2022 Cardiovascular Lab Report [facility] Patient Name: Ira Jackson [facility] Larry MR #: [id number] Department of Physician: Vic Nunes M.D. Division of Service Date: 05/18/2022 Cardiology Birthdate: 1940 Adult Cardiovascular Room #: [id number] [place] [address] Cardiovascular Laboratory Report FINAL IMPRESSIONS: 1. 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 2. Two bypass grafts patent; left internal mammary artery graft to the left anterior descending and saphenous vein graft to the obtuse marginal. 3. Robust [id number] collaterals. 4. Patent left subclavian artery. RECOMMENDATIONS: [...] internal mammary artery graft, placement of a 6-Haitian MynxGrip closure device. METHODS: After risks, benefits, and alternatives were explained, written informed consent was obtained. The patient was prepped and draped in usual sterile fashion over both groins. Using 1% lidocaine solution, local infiltration anesthesia was achieved. Using a modified Seldinger technique and a micropuncture kit and on the ultrasound guidance access to the right common femoral artery was obtained. A 6-Haitian 11 cm sheath was inserted without difficulty. [...] conclude the procedure. All catheters removed. A 6-Haitian MynxGrip closure device was deployed per protocol [...] Hall M.D. Date Trans: 05/19/2022 05:44 A/radha [id number] cc: Francisca Thompson M.D. [address], [facility] [id number] Normal [facility] MAGNESIUM BLOODon 05-19-2022 Magnesium [Mass/Vol] 2.0 mg/dL Normal 1.9-2.7 [facility] Comment on above: Order Comment: No: D o not add to previous draw Performed By: #### 1 0070, 30245 #### [facility] [address] [place] [place] [address], [facility] APTTon 05-18-2022 aPTT Coag (Bld) [Time] 80.7 s Critically high 25.0-35.0 [facility] Comment on above: Order Comment: No: D o not add to previous draw Result Comment: Resu lt checked and called. Accurately read back by DREA SINGH RN ON 05/18/2022 AT 14:48 Performed By: #### 2 3458, 16163, 34147, 20896, 82422, 99880 #### [facility] [address] [place] [address], [facility] aPTT Coag (Bld) [Time] 135.2 s Critically high 25.0-35.0 [facility] Comment on above: Order Comment: No: D o not add to previous draw Result Comment: Resu lt checked and called. Accurately read back by Pepe Connolly rn at 0447 Performed By: #### 2 5508, 95062, 75938, 98756, 45349, 41531 #### [facility] [address] [place] [address], [facility] CBC COMPLETE BLOOD COUNTon 0 05-18-2022 Erythrocyte distribution width (RBC) [Ratio] 14.1 % Normal 11.5-15.0 [facility] Comment on above: Order Comment: No: D o not add to previous draw Performed By: #### 2 5508, 77660, 48302, 76856, 37508, 14121 #### [facility] [address] [place] [address], [facility] Hematocrit (Bld) [Volume fraction] 43.0 % Normal 39.0-50.0 [facility] [facility] Comment on above: Order Comment: No: D o not add to previous draw Performed By: #### 2 5508, 65508, 07167, 27177, 78361, 83506 #### [facility] [address] [place] [address], [facility] Hemoglobin (Bld) [Mass/Vol] 14.3 g/dL Normal 13.0-17.0 [facility] Comment on above: Order Comment: No: D o not add to previous draw Performed By: #### 2 5508, 97316, 07967, 70457, 55566, 07341 #### [facility] [address] [place] [address], [place] MCH (RBC) [Entitic mass] 28.8 pg Normal 27.0-33.0 [facility] Comment on above: Order Comment: No: D o not add to previous draw Performed By: #### 2 5508, 30791, 10413, 75805, 42384, 33338 #### [facility] [address] MCHC (RBC) [Mass/Vol] 33.3 g/dL Normal 32.0-35.0 [facility] Comment on above: Order Comment: No: D o not add to previous draw Performed By: #### 2 5508, 81824, 87821, 75226, 64398, 86150 #### [facility] [address] [place] [address], [facility] MCV (RBC) [Entitic vol] 86.5 fL Normal 82.0-98.0 [facility] Comment on above: Order Comment: No: D o not add to previous draw Performed By: #### 2 5508, 19691, 58654, 09438, 67386, 06568 #### [facility] [address] Nucleated RBC/100 WBC (Bld) [Ratio] 0 % Normal 0-0 [facility] Comment on above: Order Comment: No: D o not add to previous draw Performed By: #### 2 5508, 86055, 44888, 32326, 75073, 76715 #### [facility] [address] [facility] [place] [address], [facility] PLAT CNT 105 10*3/uL Low 150-400 [facility] Comment on above: Order Comment: No: D o not add to previous draw Performed By: #### 2 5508, 20244, 19200, 65092, 59190, 71633 #### [facility] [address] [facility] [place] [address], [facility] RBC (Bld) [#/Vol] 4.97 10*6/uL Normal 4.20-5.70 [facility] Comment on above: Order Comment: No: D o not add to previous draw Performed By: #### 2 5508, 50038, 75080, 44654, 36565, 31866 #### [facility] [address] WBC (Bld) [#/Vol] 5.28 10*3/uL Normal 4.00-10.60 [facility] Comment on above: Order Comment: No: D o not add to previous draw Performed By: #### 2 5508, 30064, 75879, 47149, 48378, 61679 #### [facility] [address] POC GLUCOSE LABon 05-18-2022 Glucose [Mass/Vol] 92 mg/dL Normal 70-100 [facility] Comment on above: Performed By: #### 2 5508, 00359, 05800, 61679, 37255, 37068 #### [facility] [address] [place] [address], [facility] Glucose [Mass/Vol] 90 mg/dL Normal 70-100 [facility] Comment on above: Performed By: #### 2 5508, 39711, 68444, 58324, 38978, 48261 #### [facility] [address] PROTHROMBIN TIMEon INR Coag (PPP) [Relative time] 1.41 {INR} High 0.91-1.16 [facility] Comment on above: Order Comment: No: [...] CHEST 1995;108:[id number]. Performed By: #### 2 5508, 52328, 82043, 02502, 78410, 62952 #### [facility] [address] [place] [address], [facility] PT Coag (PPP) [Time] 17.2 s High 12.3-14.8 [facility] Comment on above: Order Comment: No: D o not add to previous draw Result Comment: ALL RESULTS MUST BE INTERPRETED WITH RESPECT TO BLOOD DRAWING ARTIFACT OR DILUTION ERROR OF ANTICOAGULANT AT THE TIME OF SAMPLING. Performed By: #### 2 5508, 42857, 20936, 09386, 46534, 61243 #### [facility] [address] [facility] [address], [facility] UFH HEPARIN ASSAYon 05-18-20 22 UNFRACTIONATED HEPARIN >1.00 Critically high 0.30-0.70 [facility] Comment on above: Result Comment: Resu lt checked and called. Accurately read back by DREA SINGH RN ON 05/18/2022 AT 14:48 Rivaroxaban and Apixaban will interfere with the anti Xa assay used to monitor UFH and LMWH. Performed By: #### 2 5508, 75504, 97100, 70008, 17940, 08536 #### [facility] [address] [place] [address], [facility] UNFRACTIONATED HEPARIN >1.00 Critically high 0.30-0.70 [facility] Comment on above: Result Comment: Resu lt checked and called. Accurately read back by Pepe Connolly rn at 0447 Rivaroxaban and Apixaban will interfere with the anti Xa assay used to monitor UFH and LMWH. Performed By: #### 2 5508, 80545, 31023, 34677, 52145, 63812 #### [facility] [address] [place] [address], [facility] *BLOOD CULTUREon 05-17-2022 *BLOOD CULTURE Clinical Report: (D) Specimen: BLOOD CULTURE Collected: 05/17/2022 02:15 Status: Final Last Updated: 05/22/2022 07:50 CULT RES (Final) No Growth Day 5 Normal [facility] Comment on above: Performed By: #### 2 5508, 66699, 78347, 73902, 70953, 01260 #### [facility] [address] [place] [address], [facility] APTTon 05-17-2022 aPTT Coag (Bld) [Time] 147.6 s Critically high 25.0-35.0 [facility] Comment on above: Order Comment: No: D o not add to previous draw Result Comment: Resu lt checked and called. Accurately read back by drea singh rn on 05/17/2022 at 18:38 Performed By: #### 2 5508, 67909, 06843, 94695, 95292, 98314 #### [facility] [address] [place] [address], [facility] aPTT Coag (Bld) [Time] 103.1 s Critically high 25.0-35.0 [facility] Comment on above: Order Comment: No: D o not add to previous draw Result Comment: Resu lt checked and called. Accurately read back by DREA SINGH @ 1000 Performed By: #### 2 5508, 65166, 30539, 08371, 65103, 86743 #### [facility] [address] [place] [address], [place] aPTT Coag (Bld) [Time] 47.9 s High 25.0-35.0 [facility] Comment on above: Order Comment: No: [...] THIS PURPOSE. Performed By: #### 2 5508, 91332, 66632, 01395, 94149, 12427 #### [facility] [address] BNP (B-TYPE NATRIURETIC PEPT TWIN)on 05-17-2022 Natriuretic peptide B (Bld) [Mass/Vol] 584 pg/mL High 0-100 [facility] Comment on above: Order Comment: No: D o not add to previous draw Result Comment: Give n the appropriate clinical setting a BNP result of >100 pg/mL indicates congestive heart failure. Performed By: #### 2 5508, 20078, 87378, 35457, 51770, 72269 #### [facility] [address] CBC W/DIFFon 05-17-2022 ABS IMM GRANS 0.0 10*3/uL Normal 0.0-0.2 [facility] Comment on above: Order Comment: No: D o not add to previous draw Performed By: #### 2 5508, 73033, 78955, 17899, 15060, 27384 #### [facility] [address] ABS NEUTROPHILS 3.6 10*3/uL Normal 1.6-7.6 [facility] Comment on above: Order Comment: No: D o not add to previous draw Performed By: #### 2 5508, 59498, 24896, 79801, 61267, 93224 #### [facility] [address] [place] [address], [facility] Basophils (Bld) [#/Vol] 0.0 10*3/uL Normal 0.0-0.2 [facility] Comment on above: Order Comment: No: D o not add to previous draw Performed By: #### 2 5508, 89669, 62774, 30972, 33555, 76662 #### [facility] [address] [place] [address], [facility] Basophils/100 WBC (Bld) 0.6 % Normal 0.0-1.0 [facility] Comment on above: Order Comment: No: D o not add to previous draw Performed By: #### 2 5508, 51277, 99028, 70424, 03554, 33857 #### [facility] [address] [place] [id number], [facility] Eosinophils (Bld) [#/Vol] 0.0 10*3/uL Normal 0.0-0.5 [facility] Comment on above: Order Comment: No: D o not add to previous draw Performed By: #### 2 5508, 78443, 29272, 85558, 58377, 70957 #### [facility] [address] [place] [address], [facility] Eosinophils/100 WBC (Bld) 0.2 % Normal 0.0-6.0 [facility] Comment on above: Order Comment: No: D o not add to previous draw Performed By: #### 2 5508, 18686, 65498, 87767, 40387, 05699 #### [facility] [address] [place] [address], [facility] Erythrocyte distribution width (RBC) [Ratio] 13.9 % Normal 11.5-15.0 [facility] Comment on above: Order Comment: No: D o not add to previous draw Performed By: #### 2 5508, 25594, 48639, 54227, 23822, 40666 #### [facility] [address] [place] [id number], [facility] Hematocrit (Bld) [Volume fraction] 40.6 % Normal 39.0-50.0 [facility] Comment on above: Order Comment: No: D o not add to previous draw Performed By: #### 2 5508, 37500, 27146, 02371, 19918, 83220 #### [facility] [address] [facility] [place] [address], [facility] Hemoglobin (Bld) [Mass/Vol] 13.7 g/dL Normal 13.0-17.0 [facility] Comment on above: Order Comment: No: D o not add to previous draw Performed By: #### 2 5508, 94453, 36929, 28867, 15587, 18460 #### [facility] [address] [place] [address], [facility] IMM PLATELET FRAC 6.9 % High 0.8-6.3 [facility] Comment on above: Order Comment: No: D o not add to previous draw Performed By: #### 2 5508, 95739, 27269, 92968, 77358, 71628 #### [facility] [address] IMMATURE GRANS 0.8 % Normal 0.0-1.0 [facility] Comment on above: Order Comment: No: D o not add to previous draw Performed By: #### 2 5508, 39500, 25350, 45160, 70738, 08885 #### [facility] [address] [place] [address], [facility] Lymphocytes (Bld) [#/Vol] 0.8 10*3/uL Low 1.2-4.0 [facility] Comment on above: Order Comment: No: D o not add to previous draw Performed By: #### 2 5508, 61436, 64569, 99070, 87678, 96128 #### [facility] [address] [facility] [place] [address], [facility] Lymphocytes/100 WBC (Bld) 15.5 % Low 20.0-45.0 [facility] Comment on above: Order Comment: No: D o not add to previous draw Performed By: #### 2 5508, 16731, 13644, 60500, 87815, 15844 #### [facility] [address] [place] [address], [facility] MCH (RBC) [Entitic mass] 29.3 pg Normal 27.0-33.0 [facility] Comment on above: Order Comment: No: D o not add to previous draw Performed By: #### 2 5508, 47722, 31772, 25960, 78941, 67722 #### [facility] [address] [place] [address], [facility] MCHC (RBC) [Mass/Vol] 33.7 g/dL Normal 32.0-35.0 [facility] Comment on above: Order Comment: No: D o not add to previous draw Performed By: #### 2 5508, 64020, 21912, 79856, 15711, 88043 #### [facility] [address] [place] [address], [facility] MCV (RBC) [Entitic vol] 86.9 fL Normal 82.0-98.0 [facility] Comment on above: Order Comment: No: D o not add to previous draw Performed By: #### 2 5508, 39201, 42442, 98137, 84658, 46240 #### [facility] [address] [place] [address], [facility] Monocytes (Bld) [#/Vol] 0.5 10*3/uL Normal 0.1-1.0 [facility] Comment on above: Order Comment: No: D o not add to previous draw Performed By: #### 2 5508, 78595, 90420, 74549, 67276, 89493 #### [facility] [address] [place] [address], [facility] MONOS 9.7 % Normal 5.0-12.0 [facility] Comment on above: Order Comment: No: D o not add to previous draw Performed By: #### 2 5508, 95506, 46881, 45243, 08263, 93953 #### [facility] [address] [place] [address], [facility] Neutrophils/100 WBC (Bld) 73.2 % High 40.0-72.0 [facility] Comment on above: Order Comment: No: D o not add to previous draw Performed By: #### 2 5508, 89474, 13133, 07512, 56441, 08210 #### [facility] [address] [place] [address], [place] Nucleated RBC/100 WBC (Bld) [Ratio] 0 % Normal 0-0 [facility] Comment on above: Order Comment: No: D o not add to previous draw Performed By: #### 2 5508, 10363, 17029, 29401, 72526, 17438 #### [facility] [address] [place] [address], [facility] PLAT CNT 81 10*3/uL Low 150-400 [facility] Comment on above: Order Comment: No: D o not add to previous draw Performed By: #### 2 5508, 23874, 50104, 51697, 48598, 54934 #### [facility] [address] [place] [address], [facility] RBC (Bld) [#/Vol] 4.67 10*6/uL Normal 4.20-5.70 [facility] Comment on above: Order Comment: No: D o not add to previous draw Performed By: #### 2 5508, 57701, 61390, 92343, 87610, 74466 #### [facility] [address] [place] [address], [place] WBC (Bld) [#/Vol] 4.96 10*3/uL Normal 4.00-10.60 [facility] Comment on above: Order Comment: No: D o not add to previous draw Performed By: #### 2 5508, 22850, 11237, 62994, 49846, 93348 #### [facility] [address] [place] [address], [facility] COMP METABOLIC PANELon 05-17 Albumin [Mass/Vol] 3.0 g/dL Low 3.5-5.7 [facility] Comment on above: Order Comment: No: D o not add to previous draw Performed By: #### 2 5508, 65054, 14059, 70260, 58657, 03136 #### [facility] [address] [place] [address], [facility] ALKALINE PHOSPH 48 IU/L Normal 34-104 [facility] Comment on above: Order Comment: No: D o not add to previous draw Performed By: #### 2 5508, 79934, 57705, 24645, 45011, 57758 #### [facility] [address] [place] [address], [place] ALT [Catalytic activity/Vol] 11 U/L Normal 7-52 [facility] Comment on above: Order Comment: No: D o not add to previous draw Performed By: #### 2 5508, 74627, 49334, 63412, 58013, 06297 #### [facility] [address] [place] [address], [facility] AST [Catalytic activity/Vol] 19 U/L Normal 13-39 [facility] Comment on above: Order Comment: No: D o not add to previous draw Performed By: #### 2 5508, 05348, 52339, 81528, 60368, 26076 #### [facility] [address] [place] [address], [place] Bilirubin [Mass/Vol] 0.7 mg/dL Normal 0.3-1.0 [facility] Comment on above: Order Comment: No: D o not add to previous draw Performed By: #### 2 5508, 32948, 31656, 09967, 08229, 94693 #### [facility] [address] [place] [address], [place] Calcium [Mass/Vol] 8.5 mg/dL Low 8.6-10.3 [facility] Comment on above: Order Comment: No: D o not add to previous draw Performed By: #### 2 5508, 90160, 29225, 98770, 57156, 48362 #### [facility] [address] [place] [id number], [facility] Chloride [Moles/Vol] 104 mmol/L Normal 98-107 [facility] Comment on above: Order Comment: No: D o not add to previous draw Performed By: #### 2 5508, 38117, 34542, 26515, 77092, 25448 #### [facility] [address] [place] [address], [facility] CO2 [Moles/Vol] 19 mmol/L Low 21-31 [facility] Comment on above: Order Comment: No: D o not add to previous draw Performed By: #### 2 5508, 31456, 30534, 25298, 69869, 26699 #### [facility] [address] [place] [id number], [facility] Creatinine [Mass/Vol] 1.71 mg/dL High 0.70-1.30 [facility] Comment on above: Order Comment: No: D o not add to previous draw Performed By: #### 2 5508, 93296, 79861, 55766, 61707, 46615 #### [facility] [address] [place] [address], [facility] EGFR 40 ml/min/1.73sq m Abnormal >60 [facility] Comment on above: Order Comment: No: D o not add to previous draw Result Comment: [facility]'s estimated glomerular filtration rate (eGFR) will [...] of individuals. Performed By: #### 2 5508, 85562, 56751, 15926, 71585, 97188 #### [facility] [address] [place] [address], [place] Glucose [Mass/Vol] 96 mg/dL Normal 70-100 [facility] Comment on above: Order Comment: No: D o not add to previous draw Performed By: #### 2 5508, 80102, 78363, 42758, 73817, 75120 #### [facility] [address] [place] [address], [place] Potassium [Moles/Vol] 3.8 mmol/L Normal 3.5-5.1 [facility] Comment on above: Order Comment: No: D o not add to previous draw Performed By: #### 2 5508, 47232, 84822, 66355, 47691, 69641 #### [facility] [address] [place] [address], [place] Protein [Mass/Vol] 5.7 g/dL Low 6.0-8.3 [facility] Comment on above: Order Comment: No: D o not add to previous draw Performed By: #### 2 5508, 69225, 84393, 82746, 62440, 79443 #### [facility] [address] [place] [address], [place] Sodium [Moles/Vol] 133 mmol/L Low 136-145 [facility] Comment on above: Order Comment: No: D o not add to previous draw Performed By: #### 2 5508, 97098, 72232, 45436, 77254, 63567 #### [facility] [address] [place] [address], [place] Urea nitrogen [Mass/Vol] 57 mg/dL High 7-25 [facility] Comment on above: Order Comment: No: D o not add to previous draw Performed By: #### 2 5508, 98083, 52553, 32700, 73633, 58485 #### [facility] [address] [place] [address], [facility] CPKon 05-17-2022 CK [Catalytic activity/Vol] 44 U/L Normal 30-223 [facility] Comment on above: Order Comment: No: D o not add to previous draw Performed By: #### 2 5508, 47947, 29481, 25200, 26396, 80832 #### [facility] [address] [place] [address], [facility] FREE T4on 05-17-2022 Free T4 [Mass/Vol] 0.78 ng/dL Normal 0.71-1.85 [facility] Comment on above: Performed By: #### 2 5508, 81604, 21618, 94003, 62047, 67222 #### [facility] [address] [place] [address], [facility] HEMOGLOBIN A1Con 05-17-2022 Glucose [Moles/Vol] 117 mmol/L Normal [facility] Comment on above: Order Comment: No: D o not add to previous draw Performed By: #### 2 5508, 38275, 40673, 82867, 98294, 89756 #### [facility] [address] [place] [address], [facility] HbA1c (Bld) [Mass fraction] 5.7 % Normal 4.0-6.0 [facility] Comment on above: Order Comment: No: D o not add to previous draw Performed By: #### 2 5508, 39864, 40341, 93129, 74681, 58812 #### [facility] [address] [place] [address], [facility] LACTATE BLOODon 05-17-2022 Lactate [Moles/Vol] 1.0 mmol/L Normal .5-2.2 [facility] Comment on above: Order Comment: No: D o not add to previous draw Performed By: #### 2 5508, 44799, 72176, 92065, 97997, 94300 #### [facility] [address] [place] [address], [facility] LIPID PROFILEon 05-17-2022 Cholesterol [Mass/Vol] 141 mg/dL Normal 120-200 [facility] Comment on above: Order Comment: No: D o not add to previous draw Result Comment: CHOL ESTEROL REFERENCE RANGE: 20 YEARS AND OLDER CARDIOVASCULAR RISK Less than 200 mg/dl Low Risk 200 to 239 mg/dl Borderline Risk 240 mg/dl and greater High Risk Performed By: #### 2 5508, 93210, 20869, 36892, 71452, 06062 #### [facility] [address] [place] [address], [facility] Cholesterol in HDL [Mass/Vol] 22 mg/dL Low 23-92 [facility] Comment on above: Order Comment: No: D o not add to previous draw Result Comment: Slig ht variation in normal range could be due to gender and/or age. HDL CHOLESTEROL REFERENCE RANGE: 20 years and older Cardiovascular Risk > or =60 mg/dL Desirable 40 TO 59 mg/dL Low Risk <40 mg/dL High Risk Performed By: #### 2 5508, 07603, 07513, 43721, 60729, 64456 #### [facility] [address] [place] [address], [place] Cholesterol in LDL [Mass/Vol] 95 mg/dL Normal 0-130 [facility] Comment on above: Order Comment: No: D o not add to previous draw Result Comment: LDL IS A CALCULATION LDL IS ONLY VALID IF THE TRIG IS LESS THAN 400. Performed By: #### 2 5508, 93091, 24180, 10352, 70578, 60116 #### [facility] [address] [place] [address], [place] Cholesterol.total/C holesterol in HDL [Mass ratio] 6.4 {ratio} High .0-4.5 [facility] Comment on above: Order Comment: No: D o not add to previous draw Performed By: #### 2 5508, 56741, 66494, 07817, 66359, 30431 #### [facility] [address] [facility] [address] NON-HDL CHOLESTEROL 119 mg/dL Normal [facility] Comment on above: Order Comment: No: D o not add to previous draw Performed By: #### 2 5508, 43870, 41116, 34723, 05295, 42551 #### [facility] [address] [facility] [address] Triglyceride [Mass/Vol] 122 mg/dL Normal 40-149 [facility] Comment on above: Order Comment: No: D o not add to previous draw Result Comment: TRIG LYCERIDE REFERENCE RANGE: 20 YEARS AND OLDER CARDIOVASCULAR RISK LESS THAN 150 mg/dl LOW RISK 150 TO 199 mg/dl BORDERLINE RISK 200 mg/dl AND GREATER HIGH RISK Performed By: #### 2 5508, 33894, 15565, 66574, 87673, 50233 #### [facility] [address] VLDL CHOL 24 mg/dL Normal 0-40 [facility] Comment on above: Order Comment: No: D o not add to previous draw Performed By: #### 2 5508, 71019, 00060, 03533, 23762, 95032 #### [facility] [address] [facility]. [address] POC GLUCOSE LABon 05-17-2022 Glucose [Mass/Vol] 91 mg/dL Normal 70-100 [facility] Comment on above: Performed By: #### 2 5508, 17109, 40913, 76064, 06791, 86595 #### [facility] [address] PORTABLE CHEST 1 VIEWon 09-0 PORTABLE CHEST 1 VIEW [facility] Department of Radiology [address] [place] [address] Patient Name: JOSÉ MIGUEL ROTH : 1940 Sex: M Age: Race: White Pt. Location: [id number] Patient Status: I Ordered Date: 05/17/2022 2:00:00 [...] report. Electronically signed: Obdulio Coughlin. Transcribed by: [email or web address], User Resident: LYNNETTE NORTH Electronically Signed by: OBDULIO COUGHLIN @ 05/17/2022 03:59 AM I personally read this/these film(s) with this resident Normal [facility] Comment on above: Order Comment: No: D o not add to previous draw PROTHROMBIN TIMEon 2 INR Coag (PPP) [Relative time] 2.07 {INR} High 0.91-1.16 [facility] Comment on above: Order Comment: No: [...] CHEST 1995;108:[id number]. Performed By: #### 2 5508, 44628, 44348, 84668, 70497, 97658 #### [facility] [address] PT Coag (PPP) [Time] 22.9 s High 12.3-14.8 [facility] Comment on above: Order Comment: No: D o not add to previous draw Result Comment: ALL RESULTS MUST BE INTERPRETED WITH RESPECT TO BLOOD DRAWING ARTIFACT OR DILUTION ERROR OF ANTICOAGULANT AT THE TIME OF SAMPLING. Performed By: #### 2 5508, 14925, 09475, 62745, 44876, 05570 #### [facility] [address] [place] [address], [facility] TROPONIN-Ion 05-17-2022 Troponin I.cardiac [Mass/Vol] 0.25 ng/mL Critically high 0.00-0.04 [facility] Comment on above: Order Comment: No: D o not add to previous draw Result Comment: M-ND EVIOUS CRITICAL RESULT REFERENCE RANGES: 0.00 - 0.04 ng/ml NORMAL 0.05 - 0.50 ng/ml INDETERMINATE > 0.50 ng/ml CONSISTENT WITH AN M.I. Performed By: #### 2 5508, 86486, 86906, 11394, 26085, 00357 #### [facility] [facility] Troponin I.cardiac [Mass/Vol] 0.31 ng/mL Critically high 0.00-0.04 [facility] Comment on above: Order Comment: No: D o not add to previous draw Result Comment: M-TR OPONIN INITIAL CRITICAL HIGH; RESPUN AND RETESTED M-CRITICAL RESULT(S) REVIEWED, CALLED TO AND READ BACK BY ARELIS CLEMENTS AT 0345 REFERENCE RANGES: 0.00 - 0.04 ng/ml NORMAL 0.05 - 0.50 ng/ml INDETERMINATE > 0.50 ng/ml CONSISTENT WITH AN M.I. Performed By: #### 2 5508, 31736, 66132, 88104, 01999, 52377 #### [facility] [address] [place] [address], [facility] TSH3 WITH REFLEX FT4on 05-17 TSH 3RD GENERATION 0.19 uIU/mL Low 0.34-5.60 [facility] Comment on above: Order Comment: No: D o not add to previous draw Performed By: #### 2 5508, 98950, 10954, 10688, 75197, 09697 #### [facility] [address] [place] [address], [facility] UFH HEPARIN ASSAYon 05-17-20 UNFRACTIONATED HEPARIN >1.00 Critically high 0.30-0.70 [facility] Comment on above: Result Comment: Resu lt checked and called. Accurately read back by drea singh rn on 05/17/2022 at 18:38 Rivaroxaban and Apixaban will interfere with the anti Xa assay used to monitor UFH and LMWH. Performed By: #### 2 5508, 97583, 72924, 02716, 84501, 64710 #### [facility] [address] [place] [address], [facility] UNFRACTIONATED HEPARIN >1.00 Critically high 0.30-0.70 [facility] Comment on above: Result Comment: Resu lt checked and called. Accurately read back by DREA SINGH @ 1000 Rivaroxaban and Apixaban will interfere with the anti Xa assay used to monitor UFH and LMWH. Performed By: #### 2 5508, 80403, 79255, 87306, 23693, 55134 #### [facility] [address] [facility] [place] [address], [facility] UNFRACTIONATED HEPARIN >1.00 Critically high 0.30-0.70 [facility] Comment on above: Result Comment: Resu lt checked and called. Accurately read back by Arelis Clements RN at 0251 PT on Elquis UFH = 2.79 for pharmacy use Rivaroxaban and Apixaban will interfere with the anti Xa assay used to monitor UFH and LMWH. Performed By: #### 2 5508, 94944, 58982, 07441, 56773, 58859 #### [facility] [address] [place] [address], [facility] URINALYSIS REFLEXon 05-17-20 22 Appearance (U) CLEAR Normal CLEAR [facility] Comment on above: Order Comment: No: D o not add to previous draw Performed By: #### 2 5508, 94579, 01722, 41553, 39068, 90918 #### [facility] [address] [place] [address], [facility] Bilirubin Ql (U) Negative Normal NEGATIVE [facility] Comment on above: Order Comment: No: D o not add to previous draw Performed By: #### 2 5508, 43609, 52311, 72904, 28359, 45449 #### [facility] [address] [place] [address], [place] Color (U) YELLOW Normal YELLOW [facility] Comment on above: Order Comment: No: D o not add to previous draw Performed By: #### 2 5508, 83981, 68803, 92850, 25657, 07398 #### [facility] [address] [place] [address], [place] EPIS NONE SEEN Normal FEW,OCC,NON E SEEN [facility] Comment on above: Order Comment: No: D o not add to previous draw Performed By: #### 2 5508, 27162, 71297, 05507, 04770, 72595 #### [facility] [address] [place] [address], [place] Glucose Ql (U) Negative Normal NEGATIVE [facility] Comment on above: Order Comment: No: D o not add to previous draw Performed By: #### 2 5508, 17123, 28424, 14940, 77642, 04314 #### [facility] [address] [place] [address], [place] Hemoglobin Ql (U) TRACE Abnormal NEGATIVE [facility] Comment on above: Order Comment: No: D o not add to previous draw Performed By: #### 2 5508, 10967, 32892, 91933, 91766, 33175 #### [facility] [address] [place] [address], [place] KETONE Negative Normal NEGATIVE [facility] Comment on above: Order Comment: No: D o not add to previous draw Performed By: #### 2 5508, 69686, 86584, 65749, 12839, 79126 #### [facility] [address] [place] [address], [place] LEUK MARQUITA Negative Normal NEGATIVE [facility] Comment on above: Order Comment: No: D o not add to previous draw Performed By: #### 2 5508, 52655, 75741, 15909, 24291, 72059 #### [facility] [address] [place] [address], [facility] MUCUS THREADS OCC Abnormal NONE SEEN [facility] Comment on above: Order Comment: No: D o not add to previous draw Performed By: #### 2 5508, 51677, 42639, 66644, 28961, 07981 #### [facility] [address] [place] [address], [place] Nitrite Ql (U) Negative Normal NEGATIVE [facility] Comment on above: Order Comment: No: D o not add to previous draw Performed By: #### 2 5508, 72544, 46679, 05497, 92291, 76995 #### [facility] [address] [place] [address], [facility] pH (U) 5.5 [pH] Normal 5.0-8.0 [facility] Comment on above: Order Comment: No: D o not add to previous draw Performed By: #### 2 5508, 52402, 98344, 98335, 99322, 91829 #### [facility] [address] [place] [address], [place] Protein Ql (U) 30 Abnormal NEGATIVE [facility] Comment on above: Order Comment: No: D o not add to previous draw Performed By: #### 2 5508, 53301, 98576, 73972, 54018, 16768 #### [facility] [address] [place] [address], [place] RBC 3-5 Abnormal NONE SEEN [facility] Comment on above: Order Comment: No: D o not add to previous draw Performed By: #### 2 5508, 54197, 56295, 09988, 31712, 51969 #### [facility] [address] SPEC GRAV 1.015 Normal 1.015-1.020 [facility] Comment on above: Order Comment: No: D o not add to previous draw Performed By: #### 2 5508, 36177, 98650, 80250, 37341, 36785 #### [facility] [address] [place] [address], [facility] WBC UA 0-2 Abnormal NONE SEEN [facility] Comment on above: Order Comment: No: D o not add to previous draw Performed By: #### 2 5508, 97866, 94180, 77001, 79417, 01001 #### [facility] [address] BNPon 05-16-2022 Natriuretic peptide B (Bld) [Mass/Vol] 14394.0 pg/mL Critically high <=1,800.0 [facility] Comment on above: Performed By: #### B MP, BNP #### [facility] [address] [place] [address] Dr. Silva Burnett CBC AUTO DIFFon 05-16-2022 BASO # 0.0 103/ul Normal 0.0-0.1 [facility] Comment on above: Performed By: #### V ITAD #### [facility] [address] [place] [address] Dr. Silva Burnett Basophils/100 WBC (Bld) 0.6 % Normal 0.2-2.0 [facility] Comment on above: Performed By: #### V ITAD #### [facility] [address] [place] [address] Dr. Silva Burnett EO # 0.0 103/ul Normal 0.0-0.7 [facility] Comment on above: Performed By: #### V ITAD #### [facility] [address] [place] [address] Dr. Silva Burnett Eosinophils/100 WBC (Bld) 0.1 % Critically low 0.9-7.0 [facility] Comment on above: Performed By: #### V ITAD #### [facility] [address] [address] [address] Silva Burnett Erythrocyte distribution width (RBC) [Ratio] 13.7 % Normal 11.0-15.0 [facility] Comment on above: Performed By: #### V ITAD #### [facility] [address] [place] [address] Dr. Silva Burnett Hematocrit (Bld) [Volume fraction] 45.5 % Normal 42.0-54.0 [facility] Comment on above: Performed By: #### V ITAD #### [facility] [address] [place] [address] Dr. Silva Burnett Hemoglobin (Bld) [Mass/Vol] 14.9 g/dL Normal 14.0-18.0 [facility] Comment on above: Performed By: #### V ITAD #### [facility] [address] [place] [address] Dr. Silva Burnett IG # 0.04 10e3/ul Critically high 0.00-0.03 [facility] Comment on above: Performed By: #### V ITAD #### [facility] [address] [place] [address] Dr. Silva Burnett IG % 0.6 % Critically high 0.0-0.5 [facility] Comment on above: Performed By: #### V ITAD #### [facility] [address] [place] [address] Dr. Silva Burnett LYMPH # 0.8 103/ul Critically low 1.2-3.8 [facility] Comment on above: Performed By: #### V ITAD #### [facility] [address] [place] [address] Dr. Silva Burnett Lymphocytes/100 WBC (Bld) 11.9 % Critically low 20.5-60.0 [facility] Comment on above: Performed By: #### V ITAD #### [facility] [address] [place] [address] Dr. Silva Burnett MANUAL DIFF REQ NO Normal [facility] Comment on above: Performed By: #### V ITAD #### [facility] [address] [address] [address] Silva Burnett MCH (RBC) [Entitic mass] 29.0 pg Normal 25.9-34.0 [facility] Comment on above: Performed By: #### V ITAD #### [facility] [address] [place] [address] Dr. Silva Burnett MCHC (RBC) [Mass/Vol] 32.7 g/dL Normal 29.9-35.2 [facility] Comment on above: Performed By: #### V ITAD #### [facility] [address] [place] [address] Dr. Silva Burnett MCV (RBC) [Entitic vol] 88.7 fL Normal 80.0-94.0 [facility] Comment on above: Performed By: #### V ITAD #### [facility] [address] [place] [address] Dr. Silva Burnett MONO # 0.4 103/ul Normal 0.3-0.8 [facility] Comment on above: Performed By: #### V ITAD #### [facility] [address] [place] [address] Dr. Silva Burnett Monocytes/100 WBC (Bld) 6.5 % Normal 1.7-12.0 [facility] Comment on above: Performed By: #### V ITAD #### [facility] [address] [place] [address] Dr. Silva Burnett NEUT # 5.4 103/ul Normal 1.4-6.5 [facility] Comment on above: Performed By: #### V ITAD #### [facility] [address] [place] [address] Dr. Silva Burnett Neutrophils/100 WBC (Bld) 80.3 % Critically high 43.0-75.0 [facility] Comment on above: Performed By: #### V ITAD #### [facility] [address] [place] [address] Dr. Silva Burnett Platelet mean volume (Bld) [Entitic vol] 11.5 fL Normal 9.5-13.5 [facility] Comment on above: Performed By: #### V ITAD #### [facility] [address] [place], [place] [address] Dr. Silva Burnett PLT 111 103/ul Critically low 150-450 [facility] Comment on above: Performed By: #### V ITAD #### [facility] [address] [place], [place] [address] Dr. Silva Burnett RBC 5.13 106/ul Normal 4.70-6.10 [facility] Comment on above: Performed By: #### V ITAD #### [facility] [address] [place], [place] [address] Dr. Silva Burnett WBC 6.7 103/ul Normal 4.0-11.0 [facility] Comment on above: Performed By: #### V ITAD #### [facility] [address] [place], [place] [address] HEAD WO CONon [...] LINDA JUNIOR Date: 2022-05-16 17:37 Normal [facility] CULTURE URINEon 05-16-2022 CULTURE URINE Culture Observations : NO GROWTH. Normal [facility] Comment on above: Performed By: #### V ITAD #### [facility] [address] [place] [address] Dr. Silva Burnett Covid-19 PCR ([facility])on 04-18 SARS-CoV-2 (COVID-19) RNA BRANT+probe Ql (Unsp spec) Not detected Normal NOT DETECTED [facility] Comment on above: Result Comment: When [...] for this test is supported by the [employer] and Human Service's declaration that [...] used). Performed By: #### C VDTBH #### [facility] [address] [place] [address] Dr. Silva Burnett ER URINE PROFILEon 2 Bilirubin Ql (U) Negative Normal NEGATIVE [facility] Comment on above: Performed By: #### B MP, BNP #### [facility] [address] [place] [address] Dr. Silva Burnett Clarity (U) CLEAR Normal CLEAR [facility] Comment on above: Performed By: #### B MP, BNP #### [facility] [address] [place] [address] Dr. Silva Burnett Color (U) DK. YELLOW Normal YELLOW [facility] Comment on above: Performed By: #### B MP, BNP #### [facility] [address] [place] [address] Dr. Silva Burnett ERUAHD A micrscopic examina tion will be performed if indicated. Normal [facility] Comment on above: Performed By: #### B MP, BNP #### [facility] [address] [place] [address] Dr. Silva Burnett Glucose Ql (U) Negative Normal NEGATIVE [facility] Comment on above: Performed By: #### B MP, BNP #### [facility] [address] [place] [address] Dr. Silva Burnett Hemoglobin Ql (U) TRACE-INTACT Abnormal NEGATIVE [facility] Comment on above: Performed By: #### B MP, BNP #### [facility] [address] [place] [address] Dr. Silva Burnett Ketones Ql (U) TRACE Abnormal NEGATIVE [facility] Comment on above: Performed By: #### B MP, BNP #### [facility] [address] [place] [address] Dr. Silva Burnett LEUKOCYTES Negative Normal NEGATIVE [facility] Comment on above: Performed By: #### B MP, BNP #### [facility] [address] [place] [address] Dr. Silva Burnett Nitrite Ql (U) Negative Normal NEGATIVE [facility] Comment on above: Performed By: #### B MP, BNP #### [facility] [address] [place] [address] Dr. Silva Burnett pH (U) 5.5 [pH] Normal 5-9 [facility] Comment on above: Performed By: #### B MP, BNP #### [facility] [address] [place] [address] Dr. Silva Burnett Protein (U) [Mass/Vol] 30 mg/dL Abnormal NEGATIVE/ TRACE [facility] Comment on above: Performed By: #### B MP, BNP #### [facility] [address] [place] [address] Dr. Silva Burnett SPEC GRAVITY 1.025 Normal 1.005-<=1.0 25 [facility] Comment on above: Performed By: #### B MP, BNP #### [facility] [address] [place] [address] Dr. Silva Burnett UR MICRO IND INDICATED Normal [facility] Comment on above: Performed By: #### B MP, BNP #### [facility] [address] [place] [address] Dr. Silva Burnett Urobilinogen Qn (U) 0.2 {Zaina'U}/dL Normal 0.2 - 1. 0 [facility] Comment on above: Performed By: #### B MP, BNP #### [facility] [address] [place] [address] Dr. Silva Burnett PROF 14(COMP METB)on 022 Albumin [Mass/Vol] 2.8 g/dL Critically low 3.4-5.0 [facility] Comment on above: Performed By: #### B MP, BNP #### [facility] [address] [place] [address] Dr. Silva Burnett Albumin/Globulin [Mass ratio] 0.7 {ratio} Normal [facility] Comment on above: Performed By: #### B MP, BNP #### [facility] [address] [place] [address] Dr. Silva Burnett ALP [Catalytic activity/Vol] 69 U/L Normal 46-116 [facility] Comment on above: Performed By: #### B MP, BNP #### [facility] [address] [place] [address] Dr. Silva Burnett ALT [Catalytic activity/Vol] 16 U/L Normal 16-63 [facility] Comment on above: Performed By: #### B MP, BNP #### [facility] [address] [place] [address] Dr. Silva Burnett Anion gap [Moles/Vol] 15.2 mmol/L Normal [facility] Comment on above: Performed By: #### B MP, BNP #### [facility] [address] [place] [address] Dr. Silva Burnett AST [Catalytic activity/Vol] 30 U/L Normal 15-37 [facility] Comment on above: Performed By: #### B MP, BNP #### [facility] [address] [place] [address] Dr. Silva Burnett Bilirubin [Mass/Vol] 0.9 mg/dL Normal 0.2-1.0 [facility] Comment on above: Performed By: #### B MP, BNP #### [facility] [address] [place] [address] Dr. Silva Burnett Calcium [Mass/Vol] 9.0 mg/dL Normal 8.5-10.1 [facility] Comment on above: Performed By: #### B MP, BNP #### [facility] [address] [place] [address] Dr. Silva Burnett Chloride [Moles/Vol] 98 mmol/L Normal 98-107 [facility] Comment on above: Performed By: #### B MP, BNP #### [facility] [address] [place] [address] Dr. Silva Burnett CO2 [Moles/Vol] 22.9 mmol/L Normal 21.0-32.0 [facility] Comment on above: Performed By: #### B MP, BNP #### [facility] [address] [place] [address] Dr. Silva Burnett Creatinine [Mass/Vol] 2.20 mg/dL Critically high 0.70-1.30 [facility] Comment on above: Performed By: #### B MP, BNP #### [facility] [address] [place] [address] Dr. Silva Burnett EGFR-AF PALESTINIAN 35 mL/min/1.73m2 Critically low >=60 [facility] Comment on above: Performed By: #### B MP, BNP #### [facility] [address] [place] [address] Dr. Silva Burnett EGFR-NON AF PALESTINIAN 29 mL/min/1.73m2 Critically low >=60 [facility] Comment on above: Performed By: #### B MP, BNP #### [facility] [address] [place] [address] Dr. Silva Burnett Globulin (S) [Mass/Vol] 4.0 g/dL Normal [facility] Comment on above: Performed By: #### B MP, BNP #### [facility] [address] [address] [address] Silva Burnett Glucose [Mass/Vol] 148 mg/dL Critically high 74-106 [facility] Comment on above: Performed By: #### B MP, BNP #### [facility] [address] [place] [address] Dr. Silva Burnett Potassium [Moles/Vol] 4.1 mmol/L Normal 3.5-5.1 [facility] Comment on above: Performed By: #### B MP, BNP #### [facility] [address] [place] [address] Dr. Silva Burnett Protein [Mass/Vol] 6.8 g/dL Normal 6.4-8.2 [facility] Comment on above: Performed By: #### B MP, BNP #### [facility] [address] [place] [address] Dr. Silva Burnett Sodium [Moles/Vol] 132 mmol/L Critically low 136-145 [facility] Comment on above: Performed By: #### B MP, BNP #### [facility] [address] [place] [address] Dr. Silva Burnett Urea nitrogen [Mass/Vol] 60.0 mg/dL Critically high 7.0-18.0 [facility] Comment on above: Performed By: #### B MP, BNP #### [facility] [address] [place] [address] Dr. Silva Burnett Urea nitrogen/Creatinine [Mass ratio] 27.3 mg/mg Normal [facility] Comment on above: Performed By: #### B MP, BNP #### [facility] [address] [place] [address] Dr. Silva Burnett PROTIMEon 05-16-2022 INR Coag (PPP) [Relative time] 1.43 {INR} Normal [facility] Comment on above: Performed By: #### V ITAD #### [facility] [address] [place] [address] Dr. Silva Burnett INR GUIDELINES SEE BELOW Normal [facility] Comment on above: Result Comment: EDMOND RED INR: 2.0 - 3.0 CONDITIONS NOT LISTED BELOW 2.5 - 3.5 FOR PROSTHETIC HEART VALVE REPLACEMENT 2.5 - 3.5 RECURRENT THROMBOSIS Performed By: #### V ITAD #### [facility] [address] [place] [address] Dr. Silva Burnett PT Coag (PPP) [Time] 15.1 s Critically high 9.0-11.6 [facility] Comment on above: Performed By: #### V ITAD #### [facility] [address] [place] [address] Dr. Silva Burnett PTTon 05-16-2022 aPTT Coag (Bld) [Time] 35.6 s Normal 22.3-36.2 [facility] Comment on above: Performed By: #### V ITAD #### [facility] [address] [place] [address] Dr. Silva Burnett TROPONIN, HIGH SENSITIVITYon 05-16-2022 HSTROP 895.9 pg/mL Critically high 4.0-76.1 [facility] Comment on above: Result Comment: CUT- OFF POINTS HAVE BEEN ESTABLISHED BASED ON THE FOURTH UNIVERSAL DEFINITIONS OF MYOCARDIAL INFARCTION. THE UPPER REFERENCE LIMIT (URL) OF TROPONIN, DEFINED THE 99TH PERCENTILE OF cTnI DISTRIBUTION IN A REFERENCE POPULATION, HAS BEEN CONFIRMED THE DECISION THRESHOLD FOR MD DIAGNOSIS. Performed By: #### B MP, BNP #### [facility] [address] [place] [address] Dr. Silva Burnett HSTROP 1000.5 pg/mL Critically high 4.0-76.1 [facility] Comment on above: Result Comment: CUT- OFF POINTS HAVE BEEN ESTABLISHED BASED ON THE FOURTH UNIVERSAL DEFINITIONS OF MYOCARDIAL INFARCTION. THE UPPER REFERENCE LIMIT (URL) OF TROPONIN, DEFINED THE 99TH PERCENTILE OF cTnI DISTRIBUTION IN A REFERENCE POPULATION, HAS BEEN CONFIRMED THE DECISION THRESHOLD FOR MD DIAGNOSIS. Performed By: #### B MP, BNP #### [facility] [address] [place] [address] Dr. Silva Burnett URINE MICROSCOPIC ONLYon BACTERIA TRACE Abnormal NONE SEEN [facility] Comment on above: Performed By: #### B MP, BNP #### [facility] [address] [place], [place] [id number] Dr. Silva Burnett Bacteria identified Cx Nom (U) INDICATED Normal [facility] Comment on above: Performed By: #### B MP, BNP #### [facility] [address] [place] [address] Dr. Silva Burnett CAST SEEN Abnormal NONE SEEN [facility] Comment on above: Performed By: #### B MP, BNP #### [facility] [address] [place] [address] Dr. Silva Burnett Crystals LM Nom (Urine sed) NONE SEEN Normal NONE SEEN [facility] Comment on above: Performed By: #### B MP, BNP #### [facility] [address] [place] [address] Dr. Silva Burnett Epithelial cells LM Ql (Urine sed) FEW Abnormal NONE SEEN /RARE [facility] Comment on above: Performed By: #### B MP, BNP #### [facility] [address] [place] [address] Dr. Silva Burnett HYALINE CAST FEW Normal [facility] Comment on above: Performed By: #### B MP, BNP #### [facility] [address] [place] [address] Dr. Silva Burnett MUCOUS SMALL Abnormal NONE SEEN [facility] Comment on above: Performed By: #### B MP, BNP #### [facility] [address] [place] [address] Dr. Silva Burnett RBC 0-2 Normal 0-2 [facility] Comment on above: Performed By: #### B MP, BNP #### [facility] [address] [place] [address] Dr. Silva Burnett WBC 5-10 Abnormal NONE SEEN [facility] Comment on above: Performed By: #### B MP, BNP #### [facility] [address] [place] [address] Dr. Silva Burnett XR CHEST 1 Von [...] AYANA FERNANDEZ Date: 2022-05-16 15:53 Normal [facility] BNPon 05-14-2022 NT PRO BNP >12069.0 Critically high <=1,800.0 [facility] Comment on above: Performed By: #### B MP, BNP #### [facility] [address] [place] [id number] Dr. Silva Burnett CBC AUTO DIFFon 05-14-2022 BASO # 0.0 103/ul Normal 0.0-0.1 [facility] Comment on above: Performed By: #### B MP, BNP #### [facility] [address] [place] [address] Dr. Silva Burnett Basophils/100 WBC (Bld) 0.3 % Normal 0.2-2.0 [facility] Comment on above: Performed By: #### B MP, BNP #### [facility] [address] [place] [address] Dr. Silva Burnett EO # 0.0 103/ul Normal 0.0-0.7 [facility] Comment on above: Performed By: #### B MP, BNP #### [facility] [address] [place] [address] Dr. Silva Burnett Eosinophils/100 WBC (Bld) 0.0 % Critically low 0.9-7.0 [facility] Comment on above: Performed By: #### B MP, BNP #### [facility] [address] [place] [address] Dr. Silva Burnett Erythrocyte distribution width (RBC) [Ratio] 13.6 % Normal 11.0-15.0 [facility] Comment on above: Performed By: #### B MP, BNP #### [facility] [address] [place] [address] Dr. Silva Burnett Hematocrit (Bld) [Volume fraction] 41.8 % Critically low 42.0-54.0 [facility] Comment on above: Performed By: #### B MP, BNP #### [facility] [address] [place] [address] Dr. Silva Burnett Hemoglobin (Bld) [Mass/Vol] 13.6 g/dL Critically low 14.0-18.0 [facility] Comment on above: Performed By: #### B MP, BNP #### [facility] [address] [place] [address] Dr. Silva Burnett IG # 0.04 10e3/ul Critically high 0.00-0.03 [facility] Comment on above: Performed By: #### B MP, BNP #### [facility] [address] [place] [address] Dr. Silva Burnett IG % 0.5 % Normal 0.0-0.5 [facility] Comment on above: Performed By: #### B MP, BNP #### [facility] [address] [place] [address] Dr. Silva Burnett LYMPH # 0.5 103/ul Critically low 1.2-3.8 [facility] Comment on above: Performed By: #### B MP, BNP #### [facility] [address] [place] [address] Dr. Silva Burnett Lymphocytes/100 WBC (Bld) 7.1 % Critically low 20.5-60.0 [facility] Comment on above: Performed By: #### B MP, BNP #### [facility] [address] [place] [address] Dr. Silva Burnett MANUAL DIFF REQ NO Normal [facility] Comment on above: Performed By: #### B MP, BNP #### [facility] [address] [place] [address] Dr. Silva Burnett MCH (RBC) [Entitic mass] 29.4 pg Normal 25.9-34.0 [facility] Comment on above: Performed By: #### B MP, BNP #### [facility] [address] [place] [address] Dr. Silva Burnett MCHC (RBC) [Mass/Vol] 32.5 g/dL Normal 29.9-35.2 [facility] Comment on above: Performed By: #### B MP, BNP #### [facility] [address] [place] [address] Dr. Silva Burnett MCV (RBC) [Entitic vol] 90.3 fL Normal 80.0-94.0 [facility] Comment on above: Performed By: #### B MP, BNP #### [facility] [address] [place] [address] Dr. Silva Burnett MONO # 0.4 103/ul Normal 0.3-0.8 [facility] Comment on above: Performed By: #### B MP, BNP #### [facility] [address] [place] [address] Dr. Silva Burnett Monocytes/100 WBC (Bld) 5.4 % Normal 1.7-12.0 [facility] Comment on above: Performed By: #### B MP, BNP #### [facility] [address] [place] [address] Dr. Silva Burnett NEUT # 6.6 103/ul Critically high 1.4-6.5 [facility] Comment on above: Performed By: #### B MP, BNP #### [facility] [address] [place] [address] Dr. Silva Burnett Neutrophils/100 WBC (Bld) 86.7 % Critically high 43.0-75.0 [facility] Comment on above: Performed By: #### B MP, BNP #### [facility] [address] [place] [address] Dr. Silva Burnett Platelet mean volume (Bld) [Entitic vol] 10.4 fL Normal 9.5-13.5 [facility] Comment on above: Performed By: #### B MP, BNP #### [facility] [address] [place] [address] Dr. Silva Burnett PLT 110 103/ul Critically low 150-450 [facility] Comment on above: Performed By: #### B MP, BNP #### [facility] [address] [place] [address] Dr. Silva Burnett RBC 4.63 106/ul Critically low 4.70-6.10 [facility] Comment on above: Performed By: #### B MP, BNP #### [facility] [address] [place] [address] Dr. Silva Burnett WBC 7.6 103/ul Normal 4.0-11.0 [facility] Comment on above: Performed By: #### B MP, BNP #### [facility] [address] [place] [address] Dr. Silva Burnett CULTURE URINEon 05-14-2022 CULTURE URINE Culture Observations : NO GROWTH. Normal [facility] Comment on above: Performed By: #### V ITAD #### [facility] [address] [place] [address] Dr. Silva Burnett IRONon 05-14-2022 Iron [Mass/Vol] 18.0 ug/dL Critically low 65.0-175.0 [facility] Comment on above: Performed By: #### I CUBA #### [facility] [address] [place] [address] Dr. Silva Burnett PROF 14(COMP METB)on 022 Albumin [Mass/Vol] 3.4 g/dL Normal 3.4-5.0 [facility] Comment on above: Performed By: #### B MP, BNP #### [facility] [address] [place] [address] Dr. Silva Burnett Albumin/Globulin [Mass ratio] 0.8 {ratio} Normal [facility] Comment on above: Performed By: #### B MP, BNP #### [facility] [address] [place] [address] Dr. Silva Burnett ALP [Catalytic activity/Vol] 77 U/L Normal 46-116 [facility] Comment on above: Performed By: #### B MP, BNP #### [facility] [address] [place] [address] Dr. Silva Burnett ALT [Catalytic activity/Vol] 16 U/L Normal 16-63 [facility] Comment on above: Performed By: #### B MP, BNP #### [facility] [address] [address] [address] Silva Burnett Anion gap [Moles/Vol] 13.3 mmol/L Normal [facility] Comment on above: Performed By: #### B MP, BNP #### [facility] [address] [address] [address] Silva Burnett AST [Catalytic activity/Vol] 23 U/L Normal 15-37 [facility] Comment on above: Performed By: #### B MP, BNP #### [facility] [address] [address] [address] Silva Burnett Bilirubin [Mass/Vol] 0.9 mg/dL Normal 0.2-1.0 [facility] Comment on above: Performed By: #### B MP, BNP #### [facility] [address] [place] [address] Dr. Silva Burnett Calcium [Mass/Vol] 9.3 mg/dL Normal 8.5-10.1 [facility] Comment on above: Performed By: #### B MP, BNP #### [facility] [address] [place] [address] Dr. Silva Burnett Chloride [Moles/Vol] 98 mmol/L Normal 98-107 [facility] Comment on above: Performed By: #### B MP, BNP #### [facility] [address] [place] [address] Dr. Silva Burnett CO2 [Moles/Vol] 26.0 mmol/L Normal 21.0-32.0 [facility] Comment on above: Performed By: #### B MP, BNP #### [facility] [address] [place] [address] Dr. Silva Burnett Creatinine [Mass/Vol] 1.84 mg/dL Critically high 0.70-1.30 [facility] Comment on above: Performed By: #### B MP, BNP #### [facility] [address] [address] [address] Silva Burnett EGFR-AF PALESTINIAN 43 mL/min/1.73m2 Critically low >=60 [facility] Comment on above: Performed By: #### B MP, BNP #### [facility] [address] [address] [address] Silva Burnett EGFR-NON AF PALESTINIAN 36 mL/min/1.73m2 Critically low >=60 [facility] Comment on above: Performed By: #### B MP, BNP #### [facility] [address] [address] [address] Silva Burnett Globulin (S) [Mass/Vol] 4.1 g/dL Normal [facility] Comment on above: Performed By: #### B MP, BNP #### [facility] [address] [address] [address] Silva Burnett Glucose [Mass/Vol] 132 mg/dL Critically high 74-106 [facility] Comment on above: Performed By: #### B MP, BNP #### [facility] [address] [address] [address] Silva Burnett Potassium [Moles/Vol] 4.3 mmol/L Normal 3.5-5.1 [facility] Comment on above: Performed By: #### B MP, BNP #### [facility] [address] [address] [address] Silva Burnett Protein [Mass/Vol] 7.5 g/dL Normal 6.4-8.2 [facility] Comment on above: Performed By: #### B MP, BNP #### [facility] [address] [address] [address] Silva Burnett Sodium [Moles/Vol] 133 mmol/L Critically low 136-145 [facility] Comment on above: Performed By: #### B MP, BNP #### [facility] [address] [address] [address] Silva Burnett Urea nitrogen [Mass/Vol] 38.0 mg/dL Critically high 7.0-18.0 [facility] Comment on above: Performed By: #### B MP, BNP #### [facility] [address] [address] [address] Silva Burnett Urea nitrogen/Creatinine [Mass ratio] 20.7 mg/mg Normal [facility] Comment on above: Performed By: #### B MP, BNP #### [facility] [address] [address] [address] Silva Burnett UA RANDOM W/MICROSCOPICon BACTERIA NONE SEEN Normal NONE SEEN [facility] Comment on above: Performed By: #### U AMIC #### [facility] [address] [address] [address] Silva Burnett Bilirubin Ql (U) Negative Normal NEGATIVE [facility] Comment on above: Performed By: #### U AMIC #### [facility] [address] [address] [address] Silva Burnett CAST NONE SEEN Normal NONE SEEN [facility] Comment on above: Performed By: #### U AMIC #### [facility] [address] [place] [address] Dr. Silva Burnett Clarity (U) CLEAR Normal CLEAR [facility] Comment on above: Performed By: #### U AMIC #### [facility] [address] [address] [address] Silva Burnett Color (U) YELLOW Normal YELLOW [facility] Comment on above: Performed By: #### U AMIC #### [facility] [address] [address] [address] Silva Burnett Crystals LM Nom (Urine sed) NONE SEEN Normal NONE SEEN [facility] Comment on above: Performed By: #### U AMIC #### [facility] [address] [address] [address] Silva Burnett Epithelial cells LM Ql (Urine sed) NONE SEEN Normal NONE SEEN /RARE [facility] Comment on above: Performed By: #### U AMIC #### [facility] [address] [address] [address] Silva Burnett Glucose Ql (U) Negative Normal NEGATIVE [facility] Comment on above: Performed By: #### U AMIC #### [facility] [address] [place] [address] Dr. Silva Burnett Hemoglobin Ql (U) MODERATE Abnormal NEGATIVE [facility] Comment on above: Performed By: #### U AMIC #### [facility] [address] [address] [address] Silva Burnett Ketones Ql (U) Negative Normal NEGATIVE [facility] Comment on above: Performed By: #### U AMIC #### [facility] [address] [address] [address] Silva Burnett LEUKOCYTES Negative Normal NEGATIVE [facility] Comment on above: Performed By: #### U AMIC #### [facility] [address] [address] [address] Silva Burnett MUCOUS NONE SEEN Normal NONE SEEN [facility] Comment on above: Performed By: #### U AMIC #### [facility] [address] [place] [address] Dr. Silva Burnett Nitrite Ql (U) Negative Normal NEGATIVE [facility] Comment on above: Performed By: #### U AMIC #### [facility] [address] [place] [address] Dr. Silva Burnett pH (U) 6.0 [pH] Normal 5-9 [facility] Comment on above: Performed By: #### U AMIC #### [facility] [address] [place] [address] Dr. Silva Burnett RBC 0-2 Normal 0-2 [facility] Comment on above: Performed By: #### U AMIC #### [facility] [address] [place] [address] Dr. Silva Burnett SPEC GRAVITY 1.025 Normal 1.005-<=1.0 25 [facility] Comment on above: Performed By: #### U AMIC #### [facility] [address] [place] [address] Dr. Silva Burnett UA PROTEIN 30 mg/dl Abnormal NEGATIVE/ TRACE [facility] Comment on above: Performed By: #### U AMIC #### [facility] [address] [place] [address] Dr. Silva Burnett Urobilinogen Qn (U) 1.0 {Zaina'U}/dL Normal 0.2 - 1. 0 [facility] Comment on above: Performed By: #### U AMIC #### [facility] [address] [address] [address] Silva Burnett WBC NONE SEEN Normal NONE SEEN [facility] Comment on above: Performed By: #### U AMIC #### [facility] [address] [address] [address] Silva Burnett ICD REMOTE CHECKon 2 AV Delay Adaptive Paced Minimum (ms) 200 ms [facility] AV Delay Adaptive Sensed Minimum (ms) 170 ms [facility] Bj RA Pacing Amplitude (volts) 2 V [facility] Bj RA Pacing Polarity BI [facility] Bj RA Pacing Pulse Width (ms) 0.5 ms [facility] Bj RA Sensing Amplitude (mvolts) 0.25 mV [facility] Bj RA Sensing Polarity BI [facility] Bj RV Pacing Amplitude (volts) 2 V [facility] Bj RV Pacing Polarity BI [facility] Bj RV Pacing Pulse Width (ms) 0.5 ms [facility] Bj RV Sensing Amplitude (mvolts) 0.3 mV [facility] Bj RV Sensing Polarity BI [facility] Detection Configuration (Vent) 2 - Zone [facility] FastVT_Detection Interval 250 ms [facility] FastVT_Therapy Configuration 1 ATP(s) + 8 Shock(s) [facility] ICD FastVT DetectionStatus ENABLED [facility] ICD-AMS EPISODES 170 {beats}/min [facility] ICD-ATP Episodes (Vent) 0 [facility] ICD-ATRIALFIBRILLAT ION 21 [facility] ICD-ATRIALTACHYCARD IA 21 [facility] ICD-ATRIALTACHYCARD IA 6 [facility] ICD-Device Mfg BSX [facility] ICD-Fast Ventricular Tachycardia 6 [facility] ICD-LEADIMPEDANCEAT RIAL 709 ohm [facility] ICD-Percent Pacing (Atrial) 5 % [facility] ICD-Percent Pacing (Vent) 1 % [facility] ICD-Shocks Aborted (Vent) 0 [facility] [id number] D 0 [facility] ICD-SHOCKSABORTED 0 [facility] ICD-SHOCKSDELIVERED VENTRICULAR 0 [facility] ICD-Ventricular Fibrillation 0 [facility] Lead Impedance (RV) 416 ohm [facility] Lead Impedance High Voltage 47 ohm [facility] Lead1 Mfg BSX [facility] Lead2 Mfg BSX [facility] Location RV [facility] Location RA [facility] Lower Rate (bpm) 50 {beats}/min [facility] Max Sensor Rate (bpm) 130 {beats}/min [facility] MDT_PROG_TACHY_ZONE _DETECTIONS_STATUS ENABLED [facility] Model D142 INOGEN [facility] Model [address] [place] 4-Front [facility] Model 7741 Ingevity MRI [facility] Pacing Mode DDDR [facility] Serial Number [id number] [facility] Serial Number [id number] [facility] Serial Number [id number] [facility] Test Charge Energy 23 J [facility] Test Charge Time 10.[address] [facility] Therapy Status (Vent) Enabled [facility] Thresh RA Capture Amplitude (volts) 0.6 V [facility] Thresh RA Capture Duration (ms) 0.5 ms [facility] Thresh RV Capture Amplitude (VOLTS) 0.4 V [facility] Thresh RV Capture Duration (MS) 0.5 ms [facility] Tracking Rate (bpm) 130 {beats}/min [facility] VF Zone Detection Interval 250 ms [facility] VF Zone Therapy Configuration 1 ATP(s) + 8 Shock(s) [facility] No Panel Informationon 05-08 BLANK _ [facility] ICD-ATRIALTACHYCARD IA 0 [facility] ICD-Fast Ventricular Tachycardia 0 [facility] Implant Date 03/24/2019 [facility] ICD REMOTE CHECKon 2 AV Delay Adaptive Paced Minimum (ms) 200 ms [facility] AV Delay Adaptive Sensed Minimum (ms) 170 ms [facility] Bj RA Pacing Amplitude (volts) 2 V [facility] Bj RA Pacing Polarity BI [facility] Bj RA Pacing Pulse Width (ms) 0.5 ms [facility] Bj RA Sensing Amplitude (mvolts) 0.25 mV [facility] Bj RA Sensing Polarity BI [facility] Bj RV Pacing Amplitude (volts) 2 V [facility] Bj RV Pacing Polarity BI [facility] Bj RV Pacing Pulse Width (ms) 0.5 ms [facility] Bj RV Sensing Amplitude (mvolts) 0.3 mV [facility] Bj RV Sensing Polarity BI [facility] Detection Configuration (Vent) 2 - Zone [facility] FastVT_Detection Interval 250 ms [facility] FastVT_Therapy Configuration 1 ATP(s) + 8 Shock(s) [facility] ICD FastVT DetectionStatus ENABLED [facility] ICD-AMS EPISODES 170 {beats}/min [facility] ICD-ATP Episodes (Vent) 0 [facility] ICD-ATRIALFIBRILLAT ION 19 [facility] ICD-ATRIALTACHYCARD IA 19 [facility] ICD-ATRIALTACHYCARD IA 4 [facility] ICD-Device Mfg BSX [facility] ICD-Fast Ventricular Tachycardia 4 [facility] ICD-LEADIMPEDANCEAT RIAL 734 ohm [facility] ICD-Percent Pacing (Atrial) 6 % [facility] ICD-Percent Pacing (Vent) 1 % [facility] ICD-Shocks Aborted (Vent) 0 [facility] [id number] D 0 [facility] ICD-SHOCKSABORTED 0 [facility] ICD-SHOCKSDELIVERED VENTRICULAR 0 [facility] ICD-Ventricular Fibrillation 0 [facility] Lead Impedance (RV) 427 ohm [facility] Lead Impedance High Voltage 48 ohm [facility] Lead1 Mfg BSX [facility] Lead2 Mfg BSX [facility] Location RV [facility] Location RA [facility] Lower Rate (bpm) 50 {beats}/min [facility] Max Sensor Rate (bpm) 130 {beats}/min [facility] MDT_PROG_TACHY_ZONE _DETECTIONS_STATUS ENABLED [facility] Model D142 INOGEN [facility] Model [address] [place] 4-Front [facility] Model 7741 Ingevity MRI [facility] Pacing Mode DDDR [facility] Serial Number [id number] [facility] Serial Number [id number] [facility] Serial Number [id number] [facility] Test Charge Energy 23 J [facility] Test Charge Time [address] [facility] Therapy Status (Vent) Enabled [facility] Thresh RA Capture Amplitude (volts) 0.6 V [facility] Thresh RA Capture Duration (ms) 0.5 ms [facility] Thresh RV Capture Amplitude (VOLTS) 0.4 V [facility] Thresh RV Capture Duration (MS) 0.5 ms [facility] Tracking Rate (bpm) 130 {beats}/min [facility] VF Zone Detection Interval 250 ms [facility] VF Zone Therapy Configuration 1 ATP(s) + 8 Shock(s) [facility] No Panel Informationon 02-06 BLANK _ [facility] ICD-ATRIALTACHYCARD IA 0 [facility] ICD-Fast Ventricular Tachycardia 0 [facility] Implant Date 03/24/2019 [facility] C [place] 12-23-2018 Wound Culture Microbiology [...] spectrum beta-lactamase, R=Resistant, TFG=Thymidine-dependent strain, HUMBERTO=Beta-lactamase positive, KAYW=mcg/m;(mg/L), S*=Predicted susceptible interp, R*=Predicted resistant interp EC [...] Locations R1: This test was performed at: [facility], [address] [place] [address], [id number] , [facility] Comment on above: Performed By: #### [id number] #### [facility] [address] [place] [id number] Coding Summary.on 12-23-2018 Coding Summary. CODING DATE: 019 [facility] STATUS: Home (Routine DC) PAYOR: Medicare ADMIT [...] Date Saved: 12/23/2018 01:25 pm [facility] Vital Signs Date Time Vital Sign Value Performing Clinician Karel newell 04-26-2023 15:[id number] Body height 182.9 cm Andreas Del Cid MD Work Phone: [facility] 04-26-2023 15:08040 Body weight 83.92 kg Andreas Del Cid MD Work Phone: [facility] 04-26-2023 [id number] Diastolic blood pressure 62 mm[Hg] Andreas Del Cid MD Work Phone: [facility] 04-26-2023 15:08-0400 Heart rate 73 /min Andreas Del Cid MD Work Phone: [facility] 04-26-2023 15:08-0400 Respiratory rate 12 /min Andreas Del Cid MD Work Phone: [facility] 04-26-2023 15:08-0400 SaO2% (BldA) [Mass fraction] 98 % Andreas Del Cid MD Work Phone: [facility] 04-26-2023 15:08-0400 Systolic blood pressure 116 mm[Hg] Andreas Del Cid MD Work Phone: [facility] 10-25-2022 15:44-0500 Body height 182.9 cm Andreas Del Cid MD Work Phone: [facility] 10-25-2022 15:44-0500 Body weight 83.92 kg Andreas Del Cid MD Work Phone: [facility] 10-25-2022 15:44-0500 Diastolic blood pressure 66 mm[Hg] Andreas Del Cid MD Work Phone: [facility] 10-25-2022 15:44-0500 Heart rate 74 /min Andreas Del Cid MD Work Phone: [facility] 10-25-2022 15:44-0500 SaO2% (BldA) [Mass fraction] 98 % Andreas Del Cid MD Work Phone: [facility] 10-25-2022 15:44-0500 Systolic blood pressure 116 mm[Hg] Andreas Del Cid MD Work Phone: [facility] 10-02-2022 13:10-0500 Body temperature 96.69 [degF] ARACELI Kim MD Work Phone: [facility] 10-02-2022 13:10-0500 Body weight 86.18 kg ARACELI Kim MD Work Phone: [facility] 10-02-2022 13:10-0500 Diastolic blood pressure 71 mm[Hg] ARACELI Kim MD Work Phone: [facility] 10-02-2022 13:10-0500 Heart rate 66 /min ARACELI Kim MD Work Phone: [facility] 10-02-2022 13:10-0500 Respiratory rate 18 /min ARACELI Kim MD Work Phone: [facility] 10-02-2022 13:10-0500 SaO2% (BldA) [Mass fraction] 98 % ARACELI Kim MD Work Phone: [facility] 10-02-2022 13:10-0500 Systolic blood pressure 113 mm[Hg] ARACELI Kim MD Work Phone: [facility] 09-03-2022 11:35-0500 Body height 182.9 cm John Jefferson MD Work Phone: [facility] 09-03-2022 11:35-0500 Body temperature 97.9 [degF] John Jefferson MD Work Phone: [facility] 09-03-2022 11:35-0500 Body weight 84.01 kg John Jefferson MD Work Phone: [facility] 09-03-2022 11:35-0500 Diastolic blood pressure 78 mm[Hg] John Jefferson MD Work Phone: [facility] 09-03-2022 11:35-0500 Heart rate 82 /min John Jefferson MD Work Phone: [facility] 09-03-2022 11:35-0500 Respiratory rate 18 /min John Jefferson MD Work Phone: [facility] 09-03-2022 11:35-0500 SaO2% (BldA) [Mass fraction] 98 % John Jefferson MD Work Phone: [facility] 09-03-2022 11:35-0500 Systolic blood pressure 133 mm[Hg] John Jefferson MD Work Phone: [facility] 06-06-2022 14:32-0400 Body height 182.9 cm Andreas Del Cid MD Work Phone: [facility] 06-06-2022 14:32-0400 Body weight 76.66 kg Andreas Del Cid MD Work Phone: [facility] 06-06-2022 14:32-0400 Diastolic blood pressure 63 mm[Hg] Andreas Del Cid MD Work Phone: [facility] 06-06-2022 14:32-0400 Heart rate 71 /min Andreas Del Cid MD Work Phone: [facility] 06-06-2022 14:32-0400 SaO2% (BldA) [Mass fraction] 97 % Andreas Del Cid MD Work Phone: [facility] 06-06-2022 14:32-0400 Systolic blood pressure 101 mm[Hg] Andreas Del Cid MD Work Phone: [facility] 12-11-2021 13:58-0400 Body temperature 97.11 [degF] ARACELI Kim MD Work Phone: [facility] 12-11-2021 13:58-0400 Body weight 82.1 kg ARACELI Kim MD Work Phone: [facility] 12-11-2021 13:58-0400 Diastolic blood pressure 78 mm[Hg] ARACELI Kim MD Work Phone: [facility] 12-11-2021 13:58-0400 Heart rate 80 /min ARACELI Kim MD Work Phone: [facility] 12-11-2021 13:58-0400 Respiratory rate 18 /min ARACELI Kim MD Work Phone: [facility] 12-11-2021 13:58-0400 SaO2% (BldA) [Mass fraction] 99 % ARACELI Kim MD Work Phone: [facility] 12-11-2021 13:58-0400 Systolic blood pressure 130 mm[Hg] ARACELI Kim MD Work Phone: [facility] Encounters Encounter Date Encounter Type Care Provider Facility Start: 10-01-2023 End: 10-01-2023 ambulatory FRANCISCA THOMPSON Facility:[facility] Start: 09-28-2023 Evaluation and manag ement of inpatient RICKY OBREGON [facility] Start: 09-27-2023 Evaluation and manag ement of inpatient SONJA HALL [facility] Start: 09-27-2023 End: 09-29-2023 Evaluation and management of inpatient FRANCISCA THOMPSON [facility] Start: 09-24-2023 End: 09-24-2023 ambulatory FRANCISCA THOMPSON Facility:[facility] Start: 08-27-2023 Telephone encounter Virgil Pacheco nd, MD Work Phone: Cardiology Comment on above: Appointment (Left a message with the patient regarding the cancellation of 10/22/2023 with . 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, unspecified CKD stage, unspecified whether custodial insulin use (HCC) (Primary Dx); PVD (peripheral vascular disease) (HCC); Atherosclerotic heart disease of [place]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) Start: 04-26-2023 End: 04-27-2023 ambulatory ANDREAS DEL CID Facility:[facility] Start: 04-02-2023 End: 04-02-2023 ambulatory FRANCISCA THOMPSON Facility:[facility] Start: 03-26-2023 End: 03-26-2023 ambulatory FRANCISCA Gallardo DONNA Facility:[facility] Start: 02-21-2023 Follow-up encounter Rubén Carney ba, MD Work Phone: [facility] Start: 02-21-2023 ICD Remote F/U Rubén Howell Work Phone: [facility] Department Start: 02-08-2023 End: 02-09-[address] DOCTOR CARRIZALES Facility: Start: 12-03-2022 Orders Only Andreas Del Cid MD Work Phone: Cardiology Start: 11-29-2022 Patient encounter procedure John Jefferson MD Work Phone: [facility] Start: 11-29-2022 Telephone encounter John carrillo MD Work Phone: [facility] Surg [facility] Comment on above: Surgery Cancelled Start: 11-06-2022 Follow-up encounter Rubén Carney ba, MD Work Phone: [facility] Start: 11-06-2022 ICD Remote F/U Rubén Howell Work Phone: [facility] Department Start: 10-31-2022 Telephone encounter John carrillo MD Work Phone: V[facility] Surg [facility] Comment on above: Appointment Start: 10-25-2022 End: 10-26-2022 ambulatory ANDREAS DEL CID Facility:[facility] Start: 10-25-2022 End: 10-25-2022 Patient encounter procedure Andreas Del Cid MD Work Phone: Cardiology Comment on above: 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[place] coronary artery of [place] heart without angina pectoris (Primary Dx); Heart failure, acute systolic (HCC) Start: 10-25-2022 End: 10-25-2022 ambulatory ANDREAS DEL CID Facility:[facility] Start: 10-25-2022 End: 10-25-2022 Subsequent hospital visit by physician [facility] Comment on above: Chronic systolic hea rt failure (HCC) [I50.22] Start: 10-02-2022 End: 10-02-2022 Patient encounter procedure Yung Kim MD Work Phone: Radiation Oncology Comment on above: Malignant neoplasm o f prostate (HCC) (Primary Dx) Start: 09-18-2022 End: 12-31-2022 ambulatory [facility] Facility: Start: 09-12-2022 End: 09-13-[address] MALAIKA KIM Facility:[facility] Start: 09-07-2022 Telephone encounter Andreas poe MD Work Phone: Cardiology Comment on above: Nm Pet Request Start: 09-06-2022 Orders Only Andreas Del Cid MD Work Phone: Cardiology Comment on above: Chronic systolic hea rt failure (HCC) (Primary Dx); Coronary artery disease involving [place] coronary artery of [place] heart without angina pectoris Start: 09-03-2022 End: 09-03-2022 Patient encounter procedure John Jefferson MD Work Phone: Vascular Surg Dept Comment on above: 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[place] coronary artery of [place] heart without angina pectoris (Primary Dx); Heart failure, acute systolic (HCC); Mixed hyperlipidemia; Stenosis of left carotid artery; Cerebrovascular acci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); Chronic 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); Carotid stenosis, asymptomatic, bilateral Start: 08-30-2022 End: 08-31-2022 ambulatory [facility] Facility: Start: 08-07-2022 Follow-up encounter Rubén Carney ba, MD Work Phone: [facility] Start: 08-07-2022 ICD Remote F/U Rubén Howell Work Phone: [facility] Department Start: 08-03-2022 Orders Only John Howell Work Phone: Vascular Surg Dept Comment on above: Bilateral carotid ar annalee stenosis (Primary Dx) Start: 08-01-2022 Telephone encounter Francisca Thompson MD Work Phone: [place] Comment on above: Appointment Start: 07-30-2022 Telephone encounter Francisca Thompson MD Work Phone: NOC Comment on above: Appointment Start: 07-25-2022 Telephone encounter Andreas poe MD Work Phone: Cardiology Comment on above: Received Outside Med ical Records Start: 07-23-2022 End: 07-24-2022 ambulatory MALAIKA CRAIN Facility:[facility] Start: 07-18-2022 End: 07-19-[address] FRANCISCA THOMPSON . Facility:[facility] Start: 06-27-2022 End: 06-28-[address] FRANCISCA THOMPSON . Facility:[facility] Start: 06-27-2022 End: 06-28-[address] FRANCISCA THOMPSON . Facility:[facility] Start: 06-18-2022 Encounter for preprocedural laboratory examination MALAIKA CRAIN [facility] Start: 06-14-2022 End: 06-15-2022 Encounter for [...] Dx); Chronic systolic heart failure (HCC) Start: 05-17-2022 End: 05-24-2022 Evaluation and management of inpatient SHARON HOOKS [facility] Start: 05-16-2022 End: 05-17-2022 ambulatory SHARON HOOKS . Facility: Start: 05-14-2022 End: 05-15-[address] FRANCISCA THOMPSON . Facility:[facility] Start: 05-08-2022 Follow-up encounter Rubén Carney ba, MD Work Phone: [facility] Start: 05-08-2022 ICD Remote F/U Rubén Howell Work Phone: [facility] Department Start: 04-26-2022 End: 04-26-2022 ambulatory G Denilson Kim MD Work Phone: Radiation Oncology Comment on above: Malignant neoplasm o f prostate (HCC) (Primary Dx) Start: 04-26-2022 End: 04-26-2022 Telemedicine consultation with patient Yung Denilson Kim MD Work Phone: [facility] Start: 02-06-2022 Follow-up encounter Rubén Carney ba, MD Work Phone: [facility] Start: 02-06-2022 ICD Remote F/U Rubén Howell Work Phone: [facility] Department Start: 01-15-2022 Orders Only Lilia Barone RN Dominick tology/Oncology Comment on above: Unspecified hypothyr oidism (Primary Dx); Hypercholesterolemia; Abnormal finding of blood chemistry, unspecified Start: 01-03-2022 Patient encounter procedure Yung Denilson Kim MD Work Phone: [facility] Start: 01-03-2022 Radiation Oncology Note G Navin Kim MD Work Phone: Radiation Oncology Comment on above: Completion Note Start: 12-18-2021 Patient encounter procedure Yung Denilson Kim MD Work Phone: [facility] Start: 12-18-2021 Radiation Oncology Note G Navin Kim MD Work Phone: Radiation Oncology Comment on above: Completion Note Start: 12-11-2021 End: 12-11-2021 Patient encounter procedure Yung Kim MD Work Phone: Radiation Oncology Comment on above: Malignant neoplasm o f prostate (HCC) (Primary Dx) Start: 04-30-2012 Patient encounter status ARACELI phillips MD Work Phone: [facility] Work Phone: Procedures Date Procedure Procedure Detail Performing Clinician Start: 02-21-2023 ICD REMOTE CHECK Rubén Bucio MD Work Phone: Start: 11-06-2022 ICD REMOTE CHECK Rubén Bucio MD Work Phone: Start: 10-25-2022 Myocrd img pet prfuj retail coverage merchandiser lead std rst&strs cncrnt ct Andreas Del Cid MD Work Phone: Start: 10-25-2022 Myocrd img pet prfuj w/metab 2rtracer cncrnt ct Andreas Del Cid MD Work Phone: Start: 10-25-2022 End: 10-25-2022 Gluc bld gluc mntr dev cleared fda spec home use [facility] Start: 09-12-2022 End: 09-12-2022 PSA screening [facility] Comment on above: Performed By: #### B MP, BNP #### [facility] [address] [place] [address] Dr. Silva Burnett Start: 08-07-2022 ICD REMOTE [...] Start: 06-13-2030 Urine microalbumin profile [facility] Start: 10-25-2025 DIABETES SCREEN DIABETES SCREEN [facility] Start: 06-06-2025 DIABETES SCREEN DIABETES SCREEN [facility] Start: 04-19-2025 DIABETES SCREEN DIABETES SCREEN [facility] Start: 01-15-2025 DIABETES SCREEN DIABETES SCREEN [facility] Start: 11-09-2024 DIABETES SCREEN DIABETES SCREEN [facility] Start: 05-17-2023 Influenza vaccination [facility] Start: 04-01-2023 End: 06-01-2023 Prostate specific Ag [Mass/volume] in Serum or Plasma PSA/PROSTSPECAG DIAG Lab Routine Malignant neoplasm of prostate (HCC) Expected: 04/01/2023 (Approximate), Expires: 06/01/2023 [facility] Work Phone: Comment on above: Expected: 04/01/2023 (Approximate), Expires: 06/01/2023 Start: 01-15-2023 Hepatitis B surface antibody level LDL CHOLESTEROL [facility] Start: 10-27-2022 End: 12-27-2022 Prostate specific Ag [Mass/volume] in Serum or Plasma PSA/PROSTSPECAG DIAG Lab Routine Malignant neoplasm of prostate (HCC) Expected: 10/27/2022, Expires: 12/27/2022 [facility] Work Phone: Comment on above: Expected: 10/27/2022 , Expires: 12/27/2022 Start: 09-16-2022 ADVANCE DIRECTIVE DISCUSSION ADVANCE DIRECTIVE DISCUSSION [facility] Start: 09-16-2022 DEPRESSION ASSESSMENT DEPRESSION ASS ESSMENT [facility] Start: 07-18-2022 Hemoglobin A1c measurement HbA1C [facility] Start: 07-18-2022 Hemoglobin A1c/Hemoglobin.total in Blood HBA1C [facility] Start: 06-06-2022 End: 08-06-2022 Comprehensive metabolic 2000 panel - Serum or Plasma [facility] Work Phone: Comment on above: Expected: 06/06/2022 , Expires: 08/06/2022 Start: 06-06-2022 End: 08-06-2022 Natriuretic peptide.B prohormone N-Terminal [Mass/volume] in Serum or Plasma [facility] Work Phone: Comment on above: Expected: 06/06/2022 , Expires: 08/06/2022 Start: 05-17-2022 Influenza vaccination C [facility] Start: 01-15-2022 End: 03-17-2022 Hemoglobin A1c/Hemoglobin.total in Blood [facility] Work Phone: Comment on above: Expected: 01/15/2022 , Expires: 03/17/2022 Start: 01-15-2022 End: 03-17-2022 Insulin [Units/volume] in Serum or Plasma [facility] Work Phone: Comment on above: Expected: 01/15/2022 , Expires: 03/17/2022 Start: 01-15-2022 End: 03-17-2022 IRON + TIBC [facility] Work Phone: Comment on above: Expected: 01/15/2022 , Expires: 03/17/2022 Start: 01-15-2022 End: 03-17-2022 LIPID PANEL BASIC [facility] Work Phone: Comment on above: Expected: 01/15/2022 , Expires: 03/17/2022 Start: 01-15-2022 End: 03-17-2022 T3 UPTAKE [facility] Work Phone: Comment on above: Expected: 01/15/2022 , Expires: 03/17/2022 Start: 01-15-2022 End: 03-17-2022 T4 FREE/FREE THYROX [facility] Work Phone: Comment on above: Expected: 01/15/2022 , Expires: 03/17/2022 Start: 01-15-2022 End: 03-17-2022 T4/FTI/T4U [facility] Work Phone: Comment on above: Expected: 01/15/2022 , Expires: 03/17/2022 Start: 01-15-2022 End: 03-17-2022 Thyrotropin [Units/volume] in Serum or Plasma [facility] Work Phone: Comment on above: Expected: 01/15/2022 , Expires: 03/17/2022 Start: 01-07-2022 End: 03-09-2022 Prostate specific Ag [Mass/volume] in Serum or Plasma PSA/PROSTSPECAG DIAG Lab Routine Malignant neoplasm of prostate (HCC) Expected: 01/07/2022, Expires: 03/09/2022 [facility] Work Phone: Comment on above: Expected: 01/07/2022 , Expires: 03/09/2022 Start: 09-16-2021 ADVANCE DIRECTIVE DISCUSSION ADVANCE DIRECTIVE DISCUSSION [facility] Start: 09-16-2021 DEPRESSION ASSESSMENT DEPRESSION ASS ESSMENT [facility] Start: 06-19-2020 Hepatitis B surface antibody level LDL CHOLESTEROL [facility] Start: 2007 PNEUMOVAX AGE 65 AND OVER WITH 5YR LOOKBACK (#1) PNEUMOVAX AGE 65 AND OVER WITH 5YR LOOKBACK (#1) [facility] Start: 2002 RSV Vaccine (1 - 1-d ose 60+ series) RSV Vaccine (1 - 1-dose 60+ series) [facility] Start: 02-20-1992 SHINGRIX VACCINE (1 of 2) ZAYAS GRIX VACCINE (1 of 2) [facility] Start: 1961 SHINGRIX VACCINE (1 of 2) ZAYAS GRIX VACCINE (1 of 2) [facility] Start: 02-20-1960 ANNUAL PCP TEAM SENIOR DIRECTOR ANCA DISEASE VISIT ANNUAL PCP TEAM CHRONIC DISEASE VISIT [facility] Start: 1954 Adult depression scr eening assessment DEPRESSION SCREENING [facility] Start: 02-20-1952 3 comp foot exam completed DIABETIC FOOT EXAM [facility] Start: 02-20-1952 Diabetic foot examination Diabetic F oot Exam [facility] Start: 02-20-1952 Glaucoma screening Dilated Retinal E xam [facility] Start: 02-20-1952 Hepatitis B screening URINE ALBUMIN:CREATININE RATIO [facility] Start: 02-20-1952 Hepatitis C antibody , confirmatory test DILATED RETINAL EXAM [facility] Start: 02-20-1948 Pneumococcal Vaccine : 65+ (1 - PCV) Pneumococcal Vaccine: 65+ (1 - PCV) [facility] Start: 02-20-1948 PNEUMOCOCCAL: 65+ (1 - PCV) PNEUMOCOCCAL: 65+ (1 - PCV) [facility] Start: 1947 COVID-19 VACCINE (#1) COVID-19 VACCI NE (#1) [facility] Start: 1947 COVID-19 VACCINE (1) COVID-19 VACCIN E (1) [facility] Start: 1942 COVID-19 VACCINE (#1) COVID-19 VACCI NE (#1) [facility] End: 06-06-2023 ECG COMPLETE ECG COMPLETE ECG Routine Chronic systolic heart failure (HCC) 1 Occurrences starting 06/06/2022 until 06/06/2023 [facility] Work Phone: Comment on above: 1 Occurrences starti ng 06/06/2022 until 06/06/2023 End: 06-06-2023 Echocardiography ECHO Cardiology Routine Chronic systolic heart failure (HCC) 1 Occurrences starting 06/06/2022 until 06/06/2023 [facility] Work Phone: Comment on above: 1 Occurrences starti ng 06/06/2022 until 06/06/2023 End: 10-06-2023 NM PET/CT CARDIAC PERF REST/STRESS NM PET/CT CARDIAC PERF REST/STRESS Radiology Routine Chronic systolic heart failure (HCC) Coronary artery disease involving [place] coronary artery of [place] heart without angina pectoris 1 Occurrences starting 09/06/2022 until 10/06/2023 [facility] Work Phone: Comment on above: 1 Occurrences starti ng 09/06/2022 until 10/06/2023 End: 10-06-2023 NM PET/CT CARDIAC VIABILITY NM PET/CT CARDIAC VIABILITY Radiology Routine Chronic systolic heart failure (HCC) Coronary artery disease involving [place] coronary artery of [place] heart without angina pectoris 1 Occurrences starting 09/06/2022 until 10/06/2023 [facility] Work Phone: Comment on above: 1 Occurrences starti ng 09/06/2022 until 10/06/2023 End: 08-03-2023 US CAROTID ARTERIES [facility] US CAROTID ARTERIES [facility] Vascular Lab Routine Bilateral carotid artery stenosis 1 Occurrences starting 08/03/2022 until 08/03/2023 [facility] Work Phone: Comment on above: 1 Occurrences starti ng 08/03/2022 until 08/03/2023 [facility] Immunizations Immunization Date Immunization Notes Care Provider Renetta carcamo 06-13-2020 diphtheria, tetanus toxoids and pertussis vaccine ARACELI Kim MD Work Phone: [facility] Payers Date Payer Category Payer Unknown MMO MMO MEDICARE SUPPLEMENT [id number] 2018-Present [phone] [address] [place] [address] Indemnity [id number] 2018 Unknown MMO MMO MEDICARE SUPPLEMENT [id number] 2018-Present [phone] [address] [place] [address] Indemnity [id number] 2007 Medicare MEDICARE MEDICAR E A AND B [id number] 2007-Present [phone] [address] [address] [place] [address] Medicare [id number] 2007 Medicare MEDICARE MEDICAR E A AND B [id number] 2007-Present [phone] [address] [address] [place] [address] Medicare [id number] 1959 Medicare [id number] 1959 Self-pay [id number] 1959 Unknown [id number] 1942 Unknown [id number] 1942 Unknown [id number] 1942 Unknown [id number] 1942 Unknown [id number] 1942 Unknown [id number] 1942 Unknown [id number] 1942 Unknown [id number] 1942 Unknown [id number] 1942 Unknown [id number] 1942 Unknown [id number] 1942 Unknown [id number] 1942 Unknown [id number] 1942 Unknown [id number] 1942 Unknown [id number] 1942 Unknown [id number] 1942 Unknown [id number] 1942 Unknown [id number] Social History Date Type Detail Facility Start: 04-28-2012 End: 04-26-2023 Tobacco smoking status NHIS Ex-smoker [facility] Work Phone: End: 04-28-1982 History of tobacco use Current smoker [facility] Work Phone: End: 04-28-1982 History of tobacco use Cigarette Smoker [facility] Work Phone: End: 04-28-1982 History of tobacco use Pipe Smoker [facility] Work Phone: Start: 04-28-2012 End: 04-02-2023 Cigarettes smoked current (pack per day) - Reported 1 [facility] Start: 04-28-2012 End: 04-26-2023 Tobacco use and exposure Smokeless tobacco non-user [facility] Work Phone: Start: 12-04-2021 End: 04-26-2023 Alcohol intake Current drinker of alcohol (finding) [facility] Start: 04-15-2020 History SDOH Alcohol Frequency 2 [facility] Start: 04-15-2020 History SDOH Alcohol Std Drinks 1 [facility] Start: 03-13-2019 History SDOH Alcohol Comment occassional [facility] Start: 1940 Sex Assigned At Male C [facility] Start: 12-01-2021 End: 06-06-2022 Exposure to SARS-CoV-2 (event) Not sure [facility] Start: 10-25-2022 Alcohol Comment [facility] Start: 04-15-2020 End: 04-02-2023 Alcohol Use Disorder Identification Test - Consumption [AUDIT-C] [facility] How often to you hav e a drink containing alcohol? Monthly or less [facility] How many standard dr inks containing alcohol do you have on a typical day? 1 or 2 [facility] Frequency of Binge Drinking Not on file [facility] Start: 02-22-2019 Gender identity Identifies as male gender (finding) [facility] Start: 02-22-2019 Sexual orientation Heterosexual (fin ding) [facility] NEGATED: Highlighted rowStart: CARMENF History of tobacco use Passive smoker [facility] Medical Equipment Procedure Code Equipment Code Equipment Origin al Text Equipment Identifier Dates [place] Cv 6x1in Thk1.65mm Ptfe - [id number] Start: 05-01-2012 Comment on above: Description: used fo r plrdgetts. Patch Cv 8x.8cm Tapr Vsgrd Bov - [id number] Start: 07-01-2012 Comment on above: Description: Right C arotid Clinical Notes 05-01-2012 to 10-01-2023 Telephone Encounter - Carina Sue - 08/27/2023 11:21 AM ESTTelephone Encounter - Brenden Pollard - 08/22/2023 12:48 PM Andreas Miller MD - 04/26/2023 7:01 AM EDTPatient Instructions Note Date & Type Note Facility 10-01-2023 Note HNO ID: [id number] Author: Yung KIM MD Service: ? Author Type: Physician Type: Progress Notes Filed: 10/01/2023 10:58 Note Text: AMBULATORY TELEPHONE VISIT José Miguel Roth Jr. [...] PSA 08/2021 36.2. and repeat biopsy showing [place] 7 (3+4) adenocarcinoma. RADIATION SUMMARY: DATES OF TREATMENT: 10/23/2021 to 12/19/2019 AREA TREATED: Pelvis Prostate DELIVERED DOSE: Area: Pelvis Prostate 4,600 cGy in 23 fractions, 3 Maxwell, IMRT, 10MV with daily CBCT Area: Pelvis Prostate Boost 3,200 cGy in 16 fractions, 2 Maxwell, IMRT, 10MV with daily CBCT TOTAL: 7,800 cGy in 39 Fractions ELAPSED TIME: 56 days. HPI: Denies new problems. Very rare hot flashes at this point. Good urinary function. Data Reviewed: Most recent labs PSA (ng/mL) Date Value 09/24/2023 <0.02 03/26/2023 <0.02 04/19/2022 <0.02 01/15/2022 <0.02 11/09/2021 0.16 09/05/2021 36.20 PSA. 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 and repeat biopsy showing [place] 7 (3+4) adenocarcinoma. Overall doing well without evidence of recurrence. PSA remains undetectable. Has been off Lupron over about 2 years, recommend continued PSA surveillance. Total Time Spent: 6 minutes Yung Kim MD [facility] 09-29-2023 Note Discharge education completed with patient and daughter at bedside; verbalized understanding. Copy of signed AVS placed in paper chart. RN encouraged patient to call to schedule follow-up appts with PCP, cardio, and nephro on Saturday d/t holiday tomorrow. RN escorted patient to main entrance lobby via wheelchair. [facility] 09-29-2023 Note Hospital Medicine Discharge Summary Final Discharge Diagnosis: NSTEMI (non-ST elevated myocardial infarction) (CMS/HCC) NSTEMI, likely 2/2 hypervolemia Nonsustained ventricular tachycardia History of coronary artery disease status post CABG x 3 Heart failure with reduced ejection fraction, NYHA class II Mitral valve regurgitation Chronic kidney disease stage IV, worsening, 2.06 History of carotid artery occlusive disease hyperlipidemia Hypertension, currently hypotensive likely 2/2 diuresis Diabetes mellitus, controlled History of prostate cancer Admission Diagnosis: NSTEMI (non-ST elevated myocardial infarction) (CMS/HCC) [I21.4] Hospital course: José Miguel Roth is an 83 y.o. male white male with underlying history of coronary artery disease with history of posterior ST CAITLYN with severe LAD disease occluded circumflex right coronary artery status post three-vessel disease CABG OTTO to LAD, SVG to PDA and SVG to OM and history of underlying chronic kidney disease stage IV. Transferred from [facility] where he was seen by his PCP who did some labs including BNP which was 5700. In the ER he was noted to have nonsustained V. tach which resolved by itself and without any symptoms or change in hemodynamic profile patient has been having progressive cough shortness of breath worse with exertion since past several months but has been more worse since past 3 days patient denies any chest pain heart palpitations he does complain of having progressive fatigue increased with activity patient denies any syncope any expectoration fever chills no dyspepsia nausea vomiting in the ER he had 2 sets of troponin 0-hour was 1236.6 and subsequent troponin was 1272 his BNP in the ER was 20 5145 chest x-ray shows small left pleural effusion his EKG shows atrial ectopy nonspecific interventricular conduction delay poor R wave progression anteriorly J-point elevation in V1 V2 per review of his old chart in the medical center he has an echo done on 05/05/2023 which shows left ventricular ejection fraction of 24 patient is independent in his activities of daily living lives at home and appears depressed which he relates to demise of his spouse a year back. He has history of prostate cancer with last PSA done few months back was 0.02 and is on Casodex. Patient has history of diabetes mellitus but appears to be on no medication per review of the medication list available at this time patient also has history of carotid artery occlusive disease and is status post right carotid endarterectomy in 2012. Patient was transferred here from [place], evaluated by cardiology. It is recommended that he take torsemide every day, patient was only taking this as needed, they believe that due to this, patient became fluid overloaded. Nephrology evaluated patient due to kidney injury, he did have some improvement in his creatinine before discharge, they would like to see him in 2 weeks. BMP was ordered prior to nephrology appointment. Per nephrology's recommendations we will hold Farxiga and lisinopril and these can be added as kidney function improves outpatient Dear Dr. Donna MD, José Miguel is advised to follow up with you within 1-2 weeks. Follow-up with: Cardiology and Nephrology Scheduled appointments: No future appointments. Your medication list CONTINUE taking these medications Instructions Last Dose Given Next Dose Due aspirin 81 mg EC tablet atorvastatin 40 mg tablet Commonly known as: Lipitor cholecalciferol 25 MCG (1000 UT) capsule Commonly known as: Vitamin D-3 ezetimibe 10 mg tablet Commonly known as: Zetia TAKE ONE TABLET BY MOUTH EVERY MORNING ferrous sulfate 325 (65 Fe) MG tablet metoprolol succinate XL 25 mg 24 hr tablet Commonly known as: Toprol-XL sildenafil 100 mg tablet Commonly known as: Viagra thyroid (pork) 60 mg tablet thyroid (pork) 15 mg tablet torsemide 10 mg tablet Commonly known as: Demadex STOP taking these medications bicalutamide 50 mg chemo tablet Commonly known as: Casodex dapagliflozin propanediol 10 mg Commonly known as: Farxiga dapagliflozin propanediol 5 mg Commonly known as: Farxiga Farxiga 10 mg Generic drug: dapagliflozin propanediol lisinopril 5 mg tablet José Miguel is allergic to latex. Disposition: Home or Self Care Discharge Condition: Stable Code Status: Full Code Diagnostic Results Hematology: Results from last 7 days Lab Units 09/29/2372009/29/2344009/28/23430 WBC AUTO 10*3/uL 6.82 -- 7.13 HEMOGLOBIN g/dL 13.2 -- 13.4 HEMATOCRIT % 41.7 -- 42.1 MCV fL 90.7 -- 91.7 PLATELETS AUTO 10*3/uL 169 -- 178 INR -- 1.20* -- Chemistry: Results from last 7 days Lab Units 09/29/2372009/29/2344009/28/2343109/27/23 17309/27/23 1507 SODIUM mmol/L 135* -- 138 -- 140 POTASSIUM mmol/L 3.9 -- 4.2 -- 4.3 CHLORIDE mmol/L 102 -- 104 -- 105 CO2 mmol/L 27 -- 22 -- 25 BUN mg/dL 37* -- 35* -- 37* CREATI (more content not included)... [facility] 09-29-2023 Note Attestation signed by Leslye Dior MD at 09/29/2023 2:30 PM By using the attestations below, the signing clinician agrees that I have read and verify that the documentation has been personally reviewed by me and ensure that the documentation accurately reflects the encounter. GC: I personally saw this patient on the day of the encounter, performed the boss portion(s) of the service and participated in the management and confirm the resident's documentation. Please note there may be an additional personal documentation from me. Nephrology Progress Note Patient : José Miguel Roth; 83 y.o. Location: 3109/3109-01 Attending: Sam Agosto MD Admit Date: 09/27/2023 Hospital Day: 2 Reason for Consult: Acute kidney injury. Subjective: History of present illness: José Miguel Roth is a 83 y.o. male patient with PMH of CKD stage 3b (baseline creatinine 1.4-1.6), CAD s/p CABGx3 in 2005, ischemic cardiomyopathy, HFrEF 20-25%. Patient was transferred from [facility] due to concerns for ACS, where he initially presented with complaints of shortness of breath and elevated BNP (in 5000). Workup showed evidence of MYLES with creatinine of 2.8 on initial presentation. Nephrology was consulted for MYLES with potential plans of cardiac cath. Upon my evaluation, patient was sitting comfortably in his bed. He endorsed feeling much better. He denied any fever, chills, chest pain, nausea and vomiting. He was not in respiratory distress and he was saturating well on room air. Interval history: Patient seen and examined at bedside. Patient reports he is feeling better he denies chest pain, shortness of breath, nausea, vomiting and abdominal pain. Objective: Input/Output: Intake/Output Summary (Last 24 hours) at 09/29/2023 1227 Last data filed at 09/29/2023 1205 Gross per 24 hour Intake 742.08 ml Output 550 ml Net 192.08 ml I/O last 3 completed shifts: In: 90.3 (1.2 mL/kg) [I.V.:90.3 (1.2 mL/kg)] Out: 2600 (33.5 mL/kg) [Urine:2600 (0.9 mL/kg/hr)] Weight: 77.6 kg Vital signs: Temperature: Temp: 36.6 ???C (97.9 ???F) TMax: Temp (24hrs), Av.6 ???C (97.8 ???F), Min:36.4 ???C (97.6 ???F), Max:36.7 ???C (98 ???F) Respirations: Resp: 15 Pulse: Heart Rate: 63 BP: BP: 105/63 BP Range: Systolic (24hrs), Av , Min:88 , Max:106 Diastolic (24hrs), Av, Min:61, Max:72 Wt Readings from Last 3 Encounters: 09/29/23 77.6 kg (171 lb 1.2 oz) 07/23/22 83 kg (183 lb) 05/28/22 77.6 kg (171 lb) Physical Exam Constitutional: General: He is not in acute distress. Appearance: Normal appearance. HENT: Head: Normocephalic and atraumatic. Eyes: General: No scleral icterus. Extraocular Movements: Extraocular movements intact. Cardiovascular: Rate and Rhythm: Normal rate and regular rhythm. Heart sounds: No murmur heard. Pulmonary: Breath sounds: Normal breath sounds. No wheezing or rales. Abdominal: General: There is no distension. Tenderness: There is no abdominal tenderness. There is no right CVA tenderness or left CVA tenderness. Musculoskeletal: General: No tenderness. Normal range of motion. Cervical back: Neck supple. No tenderness. Right lower leg: No edema. Left lower leg: No edema. Lymphadenopathy: Cervical: No cervical adenopathy. Skin: Coloration: Skin is not jaundiced or pale. Findings: No erythema, lesion or rash. Neurological: General: No focal deficit present. Mental Status: He is alert and oriented to person, place, and time. Sensory: No sensory deficit. Motor: No weakness. Psychiatric: Mood and Affect: Mood normal. Current Medications: Scheduled Meds: aspirin, 81 mg, oral, q AM atorvastatin, 40 mg, oral, Daily cholecalciferol, 1,000 Units, oral, Daily ezetimibe, 10 mg, oral, q AM ferrous sulfate, 325 mg, oral, Daily with breakfast furosemide, 40 mg, oral, Daily metoprolol succinate XL, 25 mg, oral, Daily Oxygen Therapy, , inhalation, Continuous thyroid (pork), 15 mg, oral, Daily before breakfast thyroid (pork), 60 mg, oral, Daily before breakfast Continuous Infusions: heparin, 0-28 Units/kg/hr, Last Rate: 15 Units/kg/hr (09/29/23 1205) PRN Meds: PRN medications: Insert peripheral IV AND Saline lock IV AND sodium chloride Outpatient Medications: Medication Documentation Review Audit Reviewed by Jennifer Rios RN (Registered Nurse) on 09/27/23 at 1752 Medication Order Taking? Sig Documenting Provider Last Dose Status aspirin 81 mg EC tablet [id number] Take 1 tablet every day by oral route. Historical Provider, Active atorvastatin (Lipitor) 40 mg tablet [id number] No Take 1 tablet by mouth in the morning. Historical Provider, Past Week Active bicalutamide (Casodex) 50 mg chemo tablet [id number] bicalutamide 50 mg tablet Historica (more content not included)... [facility] 09-28-2023 Note Hospital Medicine Daily Progress Note - 09/28/2023 1:40 PM; Room: [address] [place] [address] Admission: 09/27/2023 12:28 PM; Length of stay: 1 days THE HOSPITALIST TEAM PREFERS TO USE [employer] CHAT FOR COMMUNICATION 7AM-7PM. IF I DO NOT RESPOND WITHIN 15 MINUTES, PLEASE PAGE ME/CALL THROUGH THE SHIP SCALER. FROM 7PM-7AM, PLEASE PAGE [phone](COVR) Code Status: Full Code Barriers to Discharge: MYLES, heart cath Expected Discharge Date: 3-4 days Discharge Destination: home Overview Patient is seen for evaluation and management of NSTEMI. Subjective Patient assessed at bedside, denies any chest pain, reports intermittent shortness of breath with exertion. Denies orthopnea. Reports he was taking torsemide as needed when he saw his weight going up. Went about 3 to 4 days without taking it. Discussed plan of care with patient as well as all 3 of his daughters on the phone. Physical Exam Visit Vitals BP 94/60 (BP Location: Right arm, Patient Position: Lying) Pulse 71 Temp 37 ???C (98.6 ???F) (Temporal) Resp 17 Intake/Output Summary (Last 24 hours) at 09/28/2023 1340 Last data filed at 09/28/2023 1151 Gross per 24 hour Intake 330.38 ml Output 2300 ml Net -1969.62 ml Physical Exam Vitals reviewed. Constitutional: General: He is awake. He is not in acute distress. Appearance: Normal appearance. He is not ill-appearing. Cardiovascular: Rate and Rhythm: Normal rate and regular rhythm. Pulses: Radial pulses are 2+ on the right side and 2+ on the left side. Heart sounds: Murmur heard. Pulmonary: Effort: Pulmonary effort is normal. No tachypnea, accessory muscle usage, prolonged expiration or respiratory distress. Breath sounds: Normal breath sounds. Abdominal: General: Bowel sounds are normal. There is no distension. Palpations: Abdomen is soft. Tenderness: There is no abdominal tenderness. Musculoskeletal: Right lower leg: No edema. Left lower leg: No edema. Skin: General: Skin is warm and dry. Neurological: Mental Status: He is alert and oriented to person, place, and time. Mental status is at baseline. Psychiatric: Attention and Perception: Attention normal. Mood and Affect: Mood normal. Speech: Speech normal. Behavior: Behavior is cooperative. Estimated body mass index is 23.74 kg/m??? as calculated from the following: Height as of this encounter: 1.829 m (6'). Weight as of this encounter: 79.4 kg (175 lb 0.7 oz). Active Inpatient Problems Principal Problem: NSTEMI (non-ST elevated myocardial infarction) ([facility]) Active Problems: Coronary artery disease involving coronary bypass graft of [place] heart Chronic systolic heart failure ([facility]) NSVT (nonsustained ventricular tachycardia) ([facility]) Hyperlipidemia Hypothyroidism, unspecified Prostate cancer ([facility]) PVD (peripheral vascular disease) ([facility]) 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[facility]) Assessment and Plan NSTEMI, likely 2/2 hypervolemia Nonsustained ventricular tachycardia History of coronary artery disease status post CABG x 3 Heart failure with reduced ejection fraction, NYHA class II Mitral valve regurgitation Chronic kidney disease stage IV, worsening, 2.06 History of carotid artery occlusive disease hyperlipidemia Hypertension, currently hypotensive likely 2/2 diuresis Diabetes mellitus, controlled History of prostate cancer Continue vitals every 4 hours, maintain oxygenation greater than 92% Maintain patient on telemetry Cardiology consulted, planning for eventual heart cath pending kidney function potentially a stress test Home medications resumed Nephrology consulted due to CKD and need for heart cath Cardiac diet Nutrition Screen VTE Prophylaxis: IV heparin Scheduled Meds aspirin, 81 mg, oral, q AM atorvastatin, 40 mg, oral, Daily cholecalciferol, 1,000 Units, oral, Daily ezetimibe, 10 mg, oral, q AM ferrous sulfate, 325 mg, oral, Daily with breakfast [START ON 09/29/2023] furosemide, 40 mg, oral, Daily metoprolol succinate XL, 25 mg, oral, Daily Oxygen Therapy, , inhalation, Continuous [START ON 09/29/2023] thyroid (pork), 15 mg, oral, Daily before breakfast [START ON 09/29/2023] thyroid (pork), 60 mg, oral, Daily before breakfast heparin, 0-28 Units/kg/hr, Last Rate: 13 Units/kg/hr (09/28/23 0926) Pertinent Investigations Hematology: Results from last 7 days Lab Units 09/28/23 0431 09/27/23 1507 WBC AUTO 10*3/uL 7.13 -- HEMOGLOBIN g/dL 13.4 -- HEMATOCRIT % 42.1 -- MCV fL 91.7 -- PLATELETS AUTO 10*3/uL 178 165 Chemistry: Results from last 7 days Lab Units 09/28/23 0432 09/27/23 1733 09/27/23 1507 SODIUM mmol/L 138 -- 140 POTASSIUM mmol/L 4.2 -- 4.3 CHLORIDE mmol/L 104 -- 105 CO2 mmol/L 22 -- 25 BUN mg/dL 35* -- 37* CREATININE mg/dL 2.06* -- 2.01* GLUCOSE mg/dL 93 -- 103* MAGNESIUM mg/dL -- 2.0 -- CALCIUM mg/dL 10.0 -- 9.8 Results from last 7 days Lab Units 09/28/23 0432 (more content not included)... [facility] 09-28-2023 Note [facility] CARDIOLOGY INPAT IENT PROGRESS NOTE Reason for follow up: acute HFrEF Subjective Awake, good spirits, heparin drip in progress. No SOB, SANTILLAN, CPOE, lightheadedness. SANTILLAN with admission has resolved and he wants to go home. Has not been OOB. Briefly s/w 3 daughters by speakerphone regarding possible dc later today. On 09/28 I s/w pt's 3 daughters via speakerphone. He c/o depression and stress, but has been following weights faithfully, noting gradual increase in late July, using diuretic PRN as he is concerned about kidney function. Does not like water, so daughter indicates drinks about 10 oz fluid daily. He does like Snapple iced tea and discussed using this at 50% to achieve his goal of 1.5L/d. He regularly eats fast food and frozen dinners out of convenience. Reviewed that these are extremely high in sodium with recommendation for better choices. Daughters are willing to assist in this. He has been with [facility] cardiology and considering changing to closer to home, has seen Dr. Crain in past. Discussed home HF monitoring and low sodium diet, fluid limitation but necessary to maintain 1.5L intake, being active, med compliance and regular FU with cardiology. Tele: sinus ALLERGIES Allergies Allergen Reactions Latex CURRENT MEDS aspirin, 81 mg, oral, q AM atorvastatin, 40 mg, oral, Daily cholecalciferol, 1,000 Units, oral, Daily ezetimibe, 10 mg, oral, q AM ferrous sulfate, 325 mg, oral, Daily with breakfast furosemide, 40 mg, intravenous, Daily metoprolol succinate XL, 25 mg, oral, Daily Oxygen Therapy, , inhalation, Continuous thyroid (pork), 120 mg, oral, Daily before breakfast heparin, 0-28 Units/kg/hr, Last Rate: 13 Units/kg/hr (09/28/23 0926) PRN medications: Insert peripheral IV AND Saline lock IV AND sodium chloride Objective Patient Vitals for the past 24 hrs: BP Temp Temp src Pulse Resp SpO2 Height Weight 09/28/23 0925 122/76 -- -- 84 -- -- -- -- 09/28/23 0800 104/71 36.7 ???C (98 ???F) Temporal 62 17 95 % -- -- 09/28/23 0400 108/70 36.6 ???C (97.9 ???F) Temporal 77 16 (!) 89 % -- 79.4 kg (175 lb 0.7 oz) 09/28/23 0000 110/62 36.7 ???C (98.1 ???F) Oral 67 12 92 % -- -- 09/27/23 2020 (!) 123/92 36.4 ???C (97.6 ???F) Temporal 77 21 95 % -- -- 09/27/23 1500 (!) 91/49 -- -- 60 17 97 % -- -- 09/27/23 1345 107/68 36.2 ???C (97.2 ???F) Temporal 73 20 97 % -- -- 09/27/23 1330 -- -- -- -- -- -- 1.829 m (6') -- 09/27/23 1329 -- -- -- -- -- -- -- 80.9 kg (178 lb 5.6 oz) BP 122/76 Pulse 84 Temp 36.7 ???C (98 ???F) (Temporal) Resp 17 Ht 1.829 m (6') Wt 79.4 kg (175 lb 0.7 oz) SpO2 95% BMI 23.74 kg/m??? Wt Readings from Last 3 Encounters: 09/28/23 79.4 kg (175 lb 0.7 oz) 07/23/22 83 kg (183 lb) 05/28/22 77.6 kg (171 lb) General: Awake, alert, appropriate mood / affect, NAD Eyes: anicteric sclera. Non-injected conjunctiva. No xanthelasmas Neck: No elevated JVP. No carotid bruit Pulm: Breath sounds clear to ascultation bilaterally with no wheeze, crackles or rhonchi Cards: HRRR , NL S1, S2. No S3 or S4 gallop. Murmur: none Abd: Soft, Nontender, physiologic bowel sounds are present Extr: Lower extremity edema: none. DP pulses present bilaterally Skin: warm, dry, well perfused Neuro: A&Ox3, No gross deficits Lab Results Component Value Date NA 138 09/28/2023 K 4.2 09/28/2023 CL 104 09/28/2023 ANIONGAP 16 09/28/2023 BUN 35 (H) 09/28/2023 CREATININE 2.06 (H) 09/28/2023 CALCIUM 10.0 09/28/2023 MG 2.0 09/27/2023 PHOS 3.5 05/20/2022 Lab Results Component Value Date BILITOT 1.0 09/28/2023 ALKPHOS 84 09/28/2023 AST 20 09/28/2023 ALT 11 09/28/2023 PROT 7.1 09/28/2023 ALBUMIN 4.1 09/28/2023 Lab Results Component Value Date CHOLESTEROL 141 05/17/2022 TRIGLYCERIDES 122 05/17/2022 HDL 22 (L) 05/17/2022 LDL CHOLESTEROL 95 05/17/2022 Lab Results Component Value Date BNP 584 (H) 05/17/2022 Lab Results Component Value Date TSH 1.41 09/28/2023 FREE T4 0.78 05/17/2022 No results found for: DIGOXIN LVL No results found for: HGBA1C Lab Results Component Value Date WBC 7.13 09/28/2023 RBC 4.59 09/28/2023 HGB 13.4 09/28/2023 HCT 42.1 09/28/2023 MCV 91.7 09/28/2023 MCH 29.2 09/28/2023 MCHC 31.8 (L) 09/28/2023 RDW 15.4 (H) 09/28/2023 NEUTOPHILPCT 65.9 09/28/2023 LYMPHOPCT 19.2 (L) 09/28/2023 MONOPCT 9.7 09/28/2023 EOSPCT 4.2 09/28/2023 BASOPCT 0.6 09/28/2023 NEUTROABS 4.70 09/28/2023 LYMPHSABS 1.37 09/28/2023 MONOSABS 0.69 09/28/2023 EOSABS 0.30 09/28/2023 BASOSABS 0.04 09/28/2023 PLT 178 09/28/2023 NRBC 0.0 09/28/2023 No X-ray results found for the past 24 hours CV Testing: Encounter Date: 09/27/23 ECG 12 lead Result Value Ventricular Rate 65 Atrial Rate 65 ND Interval 182 QRS DURATION 82 QT Interval 432 QTC CALCULATION(BAZETT) 449 P Hickman 64 R-Hickman 0 T Wave Hickman 89 Impression Sinus rhythm with marked sinus arrythmia Nonspecific ST and T (more content not included)... [facility] 09-28-2023 Note HNO ID: [id number] Author: NOTE, INTERFACE, ? Service: ? Author Type: ? Type: Progress Notes Filed: 09/28/2023 02:16 Note Text: Epic Scheduled Downtime: 09/28/2023 1:00:00 AM to 09/28/2023 2:04:22 AM [facility] 09-27-2023 Note Hospital Medicine History and Physical 09/27/2023 1:44 PM THE HOSPITALIST TEAM PREFERS TO USE [employer] CHAT FOR COMMUNICATION 7AM-7PM. IF I DO NOT RESPOND WITHIN 15 MINUTES, PLEASE PAGE ME/CALL THROUGH THE SHIP SCALER. FROM 7PM-7AM, PLEASE PAGE [phone](COVR) Chief Complaint No chief complaint on file. History of Present Illness José Miguel Roth is an 83 y.o. male white male with underlying history of coronary artery disease with history of posterior ST CAITLYN with severe LAD disease occluded circumflex right coronary artery status post three-vessel disease CABG OTTO to LAD, SVG to PDA and SVG to OM and history of underlying chronic kidney disease stage IV. Transferred from [facility] where he was seen by his PCP who did some labs including BNP which was 5700. In the ER he was noted to have nonsustained V. tach which resolved by itself and without any symptoms or change in hemodynamic profile patient has been having progressive cough shortness of breath worse with exertion since past several months but has been more worse since past 3 days patient denies any chest pain heart palpitations he does complain of having progressive fatigue increased with activity patient denies any syncope any expectoration fever chills no dyspepsia nausea vomiting in the ER he had 2 sets of troponin 0-hour was 1236.6 and subsequent troponin was 1272 his BNP in the ER was 20 5145 chest x-ray shows small left pleural effusion his EKG shows atrial ectopy nonspecific interventricular conduction delay poor R wave progression anteriorly J-point elevation in V1 V2 per review of his old chart in the medical center he has an echo done on 05/05/2023 which shows left ventricular ejection fraction of 24 patient is independent in his activities of daily living lives at home and appears depressed which he relates to demise of his spouse a year back. He has history of prostate cancer with last PSA done few months back was 0.02 and is on Casodex. Patient has history of diabetes mellitus but appears to be on no medication per review of the medication list available at this time patient also has history of carotid artery occlusive disease and is status post right carotid endarterectomy in 2011. Review of System and Physical Exam Physical Exam Constitutional: Appearance: Normal appearance. He is normal weight. HENT: Head: Normocephalic and atraumatic. Right Ear: Tympanic membrane, ear canal and external ear normal. Left Ear: Tympanic membrane, ear canal and external ear normal. Nose: Nose normal. Mouth/Throat: Mouth: Mucous membranes are moist. Pharynx: Oropharynx is clear. Eyes: Extraocular Movements: Extraocular movements intact. Conjunctiva/sclera: Conjunctivae normal. Pupils: Pupils are equal, round, and reactive to light. Neck: Comments: No JVD no lymphadenopathy no thyromegaly Bruit audible Cardiovascular: Comments: S1-S2 soft S4 Holosystolic murmur Pulmonary: Comments: Vesicular breath sounds diminished left base scattered Rales posteriorly Abdominal: General: Abdomen is flat. Bowel sounds are normal. Palpations: Abdomen is soft. Musculoskeletal: General: Normal range of motion. Cervical back: Normal range of motion and neck supple. Skin: General: Skin is warm and dry. Capillary Refill: Capillary refill takes 2 to 3 seconds. Neurological: General: No focal deficit present. Mental Status: He is alert and oriented to person, place, and time. Psychiatric: Comments: Alert oriented no apparent distress but stated he feels sad because of his spouse demise but stated that he has adequate support back home Review of Systems Constitutional: Positive for activity change and fatigue. Negative for appetite change, chills, diaphoresis, fever and unexpected weight change. HENT: Negative. Eyes: Negative. Respiratory: Positive for shortness of breath. Negative for apnea, cough, choking, chest tightness, wheezing and stridor. Cardiovascular: Negative for chest pain, palpitations and leg swelling. Gastrointestinal: Negative. Endocrine: Negative. Genitourinary: Negative. Musculoskeletal: Negative. Allergic/Immunologic: Negative. Neurological: Negative for dizziness, tremors, seizures, syncope, facial asymmetry, speech difficulty, weakness, light-headedness, numbness and headaches. Hematological: Negative. Psychiatric/Behavioral: Positive for dysphoric mood. Negative for agitation, behavioral problems, confusion, decreased concentration and hallucinations. The patient is not nervous/anxious and is not hyperactive. Problem List Patient Active Problem List Diagnosis Date Noted NSTEMI (non-ST elevated myocardial infarction) ([facility]) 09/27/2023 Carotid stenosis, asymptomatic, left 07/23/2022 History of ischemic stroke 07/23/2022 Coronary artery disease involving coronary bypass graft of [place] heart 05/26/2022 Chronic systolic heart failure (CMS/HCC) 05/26/2022 NSVT (nonsustain (more content not included)... [facility] 08-27-2023 Miscellaneous Notes Left a message with the patient regarding the cancellation of 10/22/2023 with . Informed the patient of the new scheduled appointment on 10/29/2023 with . documented in this encounter [facility] 08-22-2023 Miscellaneous Notes Call from pharmacy requesting refill. Requested Prescriptions Pending Prescriptions Disp Refills lisinopril (ZESTRIL) 5 mg tablet 90 tablet 3 Sig: Take 1 tablet by mouth once daily. Patient last seen 06-12-23 - Seen Alison Pollard documented in this encounter [facility] 06-12-2023 Note HNO ID: [id number] Author: Alison Weller APRN.COAL TRAMMER Service: ? Author Type: Nurse Practitioner Type: Progress Notes Filed: 06/12/2023 9:01 AM Note Text: [facility] [place] Department of Cardiovascular Medicine VIRTUAL VIDEO VISIT [...] visit. Either the patient or their legal international account representative has been informed of the [...] combined systolic and diastolic congestive heart failure ([facility]) 09/03/2022 Dyslipidemia GERD (gastroesophageal reflux disease) Heart failure, acute systolic ([facility]) Hypertension Hypothyroid Myocardial infarct, old Occlusion and stenosis of carotid artery without mention of cerebral infarction Prostate cancer ([facility]) 2020 PVD (peripheral vascular disease) ([facility]) 11/17/2012 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 Systolic heart failure ([facility]) Thyroid disorder 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 kidney disease, unspecified CKD stage, unspecified whether manager terminal insulin use ([facility]) 04/26/2023 Ventricular tachycardia ([facility]) 04/28/2012 PAST SURGICAL HISTORY Procedure Laterality Date [...] Artery Disease Father Heart Attack Father fatal MD at age 77 Ischemic Heart Disease Brother CABGx6 first at age 72 No Known Problems Maternal Grandmother No Known Problems Maternal Grandfather No Known Problems Paternal Grandmother No Known Problems Paternal Grandfather No Known Problems Daughter No Known Problems Daughter No Known Problems Daughter other (Other) Other paternal cousin at age 50 of [place] Social History Tobacco Use Smoking status: Former [...] (NITROQUICK) 0.4 mg SL tabletas directed.Disp: 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 [facility] 04-26-2023 Note HNO ID: [id number] Author: Andreas Del Cid MD Service: ? Author Type: Physician Type: Progress Notes Filed: 04/27/2023 12:57 PM Note Text: [facility] [place] [facility] Department of Cardiovascular Medicine SECTION OF CARDIOVASCULAR IMAGING OUTPATIENT VISIT DATE April 26, 2023 OUTPATIENT VISIT TYPE ESTABLISHED PRIMARY CARE PHYSICIAN: Francisca Thompson [facility] [place] [address] REFERRING PHYSICIAN: Francisca Thompson [address] [facility] [phone] CHIEF COMPLAINT: Follow up HISTORY OF PRESENT [...] combined systolic and diastolic congestive heart failure ([facility]) 09/03/2022 Dyslipidemia GERD (gastroesophageal reflux disease) Heart failure, acute systolic ([facility]) Hypertension Hypothyroid Myocardial infarct, old Occlusion and stenosis of carotid artery without mention of cerebral infarction Prostate cancer ([facility]) 2020 PVD (peripheral vascular disease) ([facility]) 11/17/2012 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 Systolic heart failure ([facility]) Thyroid disorder 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 kidney disease, unspecified CKD stage, unspecified whether custodial insulin use ([facility]) 04/26/2023 Ventricular tachycardia ([facility]) 04/28/2012 PAST SURGICAL HISTORY Procedure Laterality Date [...] Artery Disease Father Heart Attack Father fatal MD at age 77 other (atrial fibrillation) Mother other (CHF) Mother other (Other) Mother at age 96 Ischemic Heart Disease Brother CABGx6 first at age 72 No Known Problems Daughter No Known Problems Daughter No Known Problems Daughter other (Other) Other paternal cousin at age 50 of MD ALLERGIES: ALLERGIES Allergen Reactions Latex Rash Adhesive [...] of breath, Wheezing, (more content not included)... [facility] 04-26-2023 History of Present illness Narrative Images from the original note were not included. [facility] [place] [facility] Department of Cardiovascular Medicine SECTION OF CARDIOVASCULAR IMAGING OUTPATIENT VISIT DATE April 26, 2023 OUTPATIENT VISIT TYPE ESTABLISHED PRIMARY CARE PHYSICIAN: Francisca Thompson [address] [place] [address] REFERRING PHYSICIAN: Francisca Thompson [address] [facility] [address] [phone] CHIEF COMPLAINT: Follow up HISTORY OF PRESENT [...] (gastroesophageal reflux disease) Heart failure, acute systolic ([facility]) Hypertension Hypothyroid Myocardial infarct, old Occlusion and stenosis of carotid artery without mention of cerebral infarction Prostate cancer (HCC) 2020 PVD (peripheral vascular disease) ([facility]) 11/17/2012 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 Systolic heart failure ([facility]) Thyroid disorder 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 kidney disease, unspecified CKD stage, unspecified whether manager terminal insulin use ([facility]) 04/26/2023 Ventricular tachycardia ([facility]) 04/28/2012 PAST SURGICAL HISTORY Procedure Laterality Date [...] Artery Disease Father Heart Attack Father fatal MD at age 77 other (atrial fibrillation) Mother other (CHF) Mother other (Other) Mother at age 96 Ischemic Heart Disease Brother CABGx6 first at age 72 No Known Problems Daughter No Known Problems Daughter No Known Problems Daughter other (Other) Other paternal cousin at age 50 of MD ALLERGIES: ALLERGIES Allergen Reactions Latex Rash Adhesive [...] ABNORMAL ECG Confirmed by MD VIET, HEBA ([id number]) on 06/26/2022 4:47:04 PM IMPRESSION AND PLAN: [...] 2023 documented in this encounter [facility] 04-02-2023 Note HNO ID: [id number] Author: Yung Kim MD Service: ? Author [...] PSA 08/2021 36.2. and repeat biopsy showing [place] 7 (3+4) adenocarcinoma. RADIATION SUMMARY: DATES OF [...] who recently had to be admitted to halfway due to feels safe. 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 No significant posttreatment problems. Recommend repeat PSA in 6 months. Signed by: Yung Kim MD cc: Francisca Thompson MD [address] [place] [address] [facility] 11-29-2022 Note HNO ID: [id number] Author: John Jefferson MD Service: Vascular Surgery Author Type: Physician Type: Progress Notes Filed: 11/30/2022 9:34 AM Note Text: NAME: JOSÉ MIGUEL ROTH JR. [facility] NO: [id number] DATE OF SERVICE: 11/29/2022 DATE OF : 1940 He let us know he has changed his mind about proceeding with his carotid surgery. We will wait to see what he says about moving ahead and when he wants to reschedule. John Jefferson M.D. [facility]/089 Audio #: [id number] Date Dictated: 11/29/2022 14:25:32 Date Typed: 11/30/2022 09:05:53 Date Revised: [facility] 11-29-2022 Miscellaneous Notes Mr. Roth decided not to move forward with surgery at this time and would like to cancel. Darlene Rajput Integrated Marketing Intern documented in this encounter [facility] 11-29-2022 History of Present illness Narrative NAME: JOSÉ MIGUEL ROTH JR. [facility] NO: [id number] DATE OF SERVICE: 11/29/2022 DATE OF : 1940 He let us know he has changed his mind about proceeding with his carotid surgery. We will wait to see what he says about moving ahead and when he wants to reschedule. John Jefferson M.D. [facility]/089 Audio #: [id number] Date Dictated: 11/29/2022 14:25:32 Date Typed: 11/30/2022 09:05:53 Date Revised: documented in this encounter [facility] 10-31-2022 Miscellaneous Notes Called patient José Miguel to clarify surgery date and advise pre scheduled date requested, asked if I could look up his brothers surgery information, advised I could not my apologizes,to also check as he has EKG/Echo scheduled with Cardiac scheduled day after surgery ..Tiffany Clifton documented in this encounter [facility] 10-26-2022 Note HNO ID: [id number] Author: Andreas Del Cid MD Service: ? Author Type: Physician Type: Progress Notes Filed: 11/02/2022 10:08 AM Note Text: [facility] [place] [facility] Department of Cardiovascular Medicine SECTION OF CARDIOVASCULAR IMAGING OUTPATIENT VISIT DATE October 26, 2022 OUTPATIENT VISIT TYPE ESTABLISHED PRIMARY CARE PHYSICIAN: Francisca Thompson MD [address] [place] [address] REFERRING PHYSICIAN: Andreas Del Cid [address] [facility] [address] CHIEF COMPLAINT: Follow up HISTORY OF PRESENT [...] combined systolic and diastolic congestive heart failure ([facility]) 09/03/2022 Dyslipidemia GERD (gastroesophageal reflux disease) Heart failure, acute systolic ([facility]) Hypertension Hypothyroid Myocardial infarct, old Occlusion and stenosis of carotid artery without mention of cerebral infarction Prostate cancer ([facility]) 2020 PVD (peripheral vascular disease) ([facility]) 11/17/2012 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 Systolic heart failure ([facility]) Thyroid disorder Ventricular tachycardia 04/28/2012 PAST SURGICAL [...] Artery Disease Father Heart Attack Father fatal MD at age 77 other (atrial fibrillation) Mother other (CHF) Mother other (Other) Mother at age 96 Ischemic Heart Disease Brother CABGx6 first at age 72 No Known Problems Daughter No Known Problems Daughter No Known Problems Daughter other (Other) Other paternal cousin at age 50 of MD ALLERGIES: ALLERGIES Allergen Reactions Latex Rash Adhesive [...] Depressed mood, Memor (more content not included)... [facility] 10-26-2022 History of Present illness Narrative Images from the original note were not included. [facility] [place] [facility] Department of Cardiovascular Medicine SECTION OF CARDIOVASCULAR IMAGING OUTPATIENT VISIT DATE October 26, 2022 OUTPATIENT VISIT TYPE ESTABLISHED PRIMARY CARE PHYSICIAN: Francisca Thompson MD [address] [place] [address] REFERRING PHYSICIAN: Andreas Del Cid [address] [facility] [id number] CHIEF COMPLAINT: Follow up HISTORY OF PRESENT [...] combined systolic and diastolic congestive heart failure ([facility]) 09/03/2022 Dyslipidemia GERD (gastroesophageal reflux disease) Heart failure, acute systolic ([facility]) Hypertension Hypothyroid Myocardial infarct, old Occlusion and stenosis of carotid artery without mention of cerebral infarction Prostate cancer ([facility]) 2020 PVD (peripheral vascular disease) ([facility]) 11/17/2012 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 Systolic heart failure ([facility]) Thyroid disorder Ventricular tachycardia 04/28/2012 PAST SURGICAL [...] Artery Disease Father Heart Attack Father fatal MD at age 77 other (atrial fibrillation) Mother other (CHF) Mother other (Other) Mother at age 96 Ischemic Heart Disease Brother CABGx6 first at age 72 No Known Problems Daughter No Known Problems Daughter No Known Problems Daughter other (Other) Other paternal cousin at age 50 of MD ALLERGIES: ALLERGIES Allergen Reactions Latex Rash Adhesive [...] FOR LVH, MAY BE NORMAL VARIANT ( [place] product ) NONSPECIFIC T WAVE ABNORMALITY ABNORMAL ECG Confirmed by MD VIET, [facility] ([id number]) on 06/26/2022 4:47:04 PM IMPRESSION AND PLAN: [...] 2022 documented in this encounter [facility] 10-25-2022 Instructions Andreas Del Cid MD - 10/25/2022 4:11 PM EST OK for surgery. Do not take your lisinopril the day before and the day of surgery. Continue your other medications. Check blood work today. Return in 6 months with an echocardiogram. documented in this encounter [facility] 10-25-2022 Note HNO ID: [id number] Author: Luigi Desai [employer] Service: Nuclear Medicine Author Type: Hotel Maintenance Technician Type: Progress Notes Filed: 10/25/2022 2:20 PM [...] 1416 PATIENT DISCHARGED TO: Ambulatory patient, left [place] department area. A Diagnostic radioactive procedure has taken place, with no further precautions necessary other than routine body substance precautions. More information regarding radiation safety can be found using this link: [email or web address] 0Protection %[email or web address]-%20Diagnostic%20Nuclear%20Me dicine%20Procedures.pdf SIGNATURE: Luigi Desai Terranova PATIENT NAME: José Miguel Roth Jr. DATE: October 25, 2022 TIME: 1:32 PM PAGER/CONTACT #: [facility] 10-25-2022 Note HNO ID: [id number] Author: Josselin Claros RN Service: ? Author [...] ALLERGIES: Reviewed and unchanged MEDICATIONS REVIEWED BY: High School Assistant Principal and Josselin Claros RN PROCEDURE TYPE: NM PET Myocardial Imagin.4 mg of Regadenoson was administered at 1359 over 10 Seconds. Reversal agent used: None. and NM PET Myocardial Action Taken: POCT Blood Glucose 101 mg/dL at 1339 (QC = OK).9.2 mCi FDG-18 IV at 1416. POCT Blood Glucose 98 mg/dL at 1415 (QC = OK). Expiration date: 16JUN2025 Lot#: [id number] IV SITE: Ambulatory: A peripheral IV was started in the Right forearm with a Angio cath: 20 gauge. and A Saline lock was inserted per protocol POST EXAM PIV STATUS: Discontinued PATIENT DISCHARGED TO: Ambulatory patient, left [place] department area. A Diagnostic radioactive procedure has taken place, with no further precautions necessary other than routine body substance precautions. More information regarding radiation safety can be found using this link: [email or web address] 0Protection %[email or web address]-%20Diagnostic%20Nuclear%20Me dicine%20Procedures.pdf SIGNATURE: Josselin Claros RN PATIENT NAME: José Miguel Roth Jr. DATE: October 25, 2022 TIME: 1:46 PM PAGER/CONTACT #: [facility] 10-25-2022 History of Present illness Narrative RADIOLOGY SERVICE PROGRESS NOTE SERVICE DATE: 10/25/2022 SERVICE TIME: 1:46 PM PATIENT IDENTITY VERIFICATION COMPLETED USING TWO (2) STANDARD IDENTIFIERS: Name and Date of confirmed by patient verbally and Name and Date of confirmed by identification band PATIENT GENDER DATA: male ALLERGIES: Reviewed and unchanged MEDICATIONS REVIEWED BY: High School Assistant Principal and Josselin Claros RN PROCEDURE TYPE: NM PET Myocardial Imagin.4 mg of Regadenoson was administered at 1359 over 10 Seconds. Reversal agent used: None. and NM PET Myocardial Action Taken: POCT Blood Glucose 101 mg/dL at 1339 (QC = OK).9.2 mCi FDG-18 IV at 1416. POCT Blood Glucose 98 mg/dL at 1415 (QC = OK). Expiration date: 16JUN2025 Lot#: [id number] IV SITE: Ambulatory: A peripheral IV was started in the Right forearm with a Angio cath: 20 gauge. and A Saline lock was inserted per protocol POST EXAM PIV STATUS: Discontinued PATIENT DISCHARGED TO: Ambulatory patient, left [place] department area. A Diagnostic radioactive procedure has taken place, with no further precautions necessary other than routine body substance precautions. More information regarding radiation safety can be found using this link: [email or web address] [email or web address]-%20Diagnostic%20N uclear%20Medicine%20Procedures.p df SIGNATURE: Josselin Claros [...] 1416 PATIENT DISCHARGED TO: Ambulatory patient, left [place] department area. A Diagnostic radioactive procedure has taken place, with no further precautions necessary other than routine body substance precautions. More information regarding radiation safety can be found using this link: [email or web address] [email or web address]-%20Diagnostic%20N uclear%20Medicine%20Procedures.p df SIGNATURE: Madalyn Castro PATIENT NAME: José Miguel Roth Jr. DATE: October 25, 2022 TIME: 1:32 PM PAGER/CONTACT #: documented in this encounter [facility] 10-02-2022 Nurse Note AUA 1.5 Kathie Pavon RN documented in this encounter [facility] 10-02-2022 History of Present illness Narrative [...] ASSESSMENT/PLAN: Prostate adenocarcinoma, initial PSA 8, biopsy [place] score 3 + 4 = 7 (grade [...] Yung Kim MD cc: Francisca Thompson MD [address] [place] [address] documented in this encounter [facility] 09-11-2022 Miscellaneous Notes 09/11 Spoke with [...] failure (HCC) [I50.22] Coronary artery disease involving [place] coronary artery of [place] heart without angina pectoris [I25.10] Test Approved by: Aisha Benavides RN If additional orders are required route to ordering physician and to [facility] with recommendations. If all recommended orders are present route to [facility] This form is used for MAIN CAMPUS APPOINTMENTS ONLY. Is this request for a Main [place] PET scan appointment? Yes: Director Of Learning: Darlene LUNA Requesting Person (Andreas Del Cid): [phone] Area Code + Phone/Pager: Who do we [...] day/next day medically urgent scans please call [phone] to expedite LVEF: LV Ejection Fraction (%) Date Value 06/06/2022 20 LVEF Free text: Yes, see above. Additional comments: N/A Send requests to P CARDIAC PET MD NERI documented in this encounter [facility] 09-03-2022 History of Present illness Narrative Images from the original note were not included. DATE: 07/01/2012 AGE: 72 SURGEON 1: John Jefferson M.D. OPERATION: Right carotid endarterectomy with bovine patch angioplasty. [facility] [place] DEPARTMENT OF VASCULAR SURGERY OUTPATIENT VISIT DATE September 03, 2022 OUTPATIENT VISIT TYPE CONSULTATION SERVICE DATE: 09/03/2022 SERVICE TIME: 11:53 AM PRIMARY CARE PHYSICIAN: Francisca Thompson MD, MD REFERRING PROVIDER: Francisca Thompson MD [address] [facility] [address] Consult requested for an opinion regarding the [...] Of note, he was recently hospitalized in [place] on April for not feeling well. He has been grieving since his has passed in December. 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 without mention of cerebral infarction Prostate cancer ([facility]) 2020 PVD (peripheral vascular disease) ([facility]) 11/17/2012 Thyroid disorder Ventricular tachycardia 04/28/2012 PAST [...] Artery Disease Father Heart Attack Father fatal MD at age 77 other (atrial fibrillation) Mother other (CHF) Mother other (Other) Mother at age 96 Ischemic Heart Disease Brother CABGx6 first at age 72 No Known Problems Daughter No Known Problems Daughter No Known Problems Daughter other (Other) Other paternal cousin at age 50 of MD MEDICATIONS: therapeutic multivitamin w/ iron (THERAGRAN-M) 27-0.4 [...] reviewed for today's visit: HUSSEIN Jefferson MD ([id number]) paged with results. Compared to prior study [...] flow noted. Abnormal signal suggests pre-steal. IMPRESSION: [facility] STAFF PHYSICIAN NOTE OF PERSONAL INVOLVEMENT IN [...] PM documented in this encounter [facility] 08-01-2022 Miscellaneous Notes Mr Roth's daughter called and she would like to schedule an appointment with pt advised to do so due to Carotid stenosis seen Dr jefferson in 2011 regarding right side now its the left side having issues Contact Name (If not the pt): stan Box Home and cell number: [phone] Diagnosis: Carotid stenosis Kind Regards Ayana Jauregui documented in this encounter [facility] 07-30-2022 Miscellaneous Notes Reason for call: Mr Roth called,and he would like to schedule an appointment with Contact Name (If not the pt): Charu, daughter Home and cell number: [phone] Diagnosis: Mitral valve insufficiency, unspecified etiology Kind Regards Megramanjessica documented in this encounter [facility] 07-25-2022 Miscellaneous Notes Images have been pushed through into enVerid. Daughter would like you to call her to go over things as this was all completed after he saw you in office. She can be reached at [phone] Her name is Charu documented in this encounter [facility] 06-06-2022 History of Present illness Narrative Heart [facility] [place] [facility] Department of Cardiovascular Medicine SECTION OF CARDIOVASCULAR IMAGING OUTPATIENT VISIT DATE June 06, 2022 OUTPATIENT VISIT TYPE ESTABLISHED PRIMARY CARE PHYSICIAN: Francisca Thompson MD [facility] [place] [id number] CHIEF COMPLAINT: Follow up HISTORY OF PRESENT [...] without mention of cerebral infarction Prostate cancer ([facility]) 2020 PVD (peripheral vascular disease) ([facility]) 11/17/2012 Thyroid disorder Ventricular tachycardia ([facility]) 04/28/2012 PAST SURGICAL HISTORY Procedure Laterality Date [...] Artery Disease Father Heart Attack Father fatal MD at age 77 other (atrial fibrillation) Mother other (CHF) Mother other (Other) Mother at age 96 Ischemic Heart Disease Brother CABGx6 first at age 72 No Known Problems Daughter No Known Problems Daughter No Known Problems Daughter other (Other) Other paternal cousin at age 50 of MD ALLERGIES: ALLERGIES Allergen Reactions Latex Rash Adhesive [...] any questions regarding this interpretation, please call [phone]. If you are unable to reach us at the number above, please feel free to contact [facility] at [phone]. IMPRESSION: Mr. Roth is a 82 year [...] 2022 documented in this encounter [facility] 04-26-2022 History of Present illness Narrative AMBULATORY TELEPHONE VISIT José Miguel Roth JrTitus has consented to this telephone encounter. Persons Present: patient Chief Complaint/Reason: Prostate adenocarcinoma, initial PSA 8, biopsy [place] score 3 + 4 = 7 (grade [...] Boost 3,200 cGy in 16 fractions, 2 [place], IMRT, 10MV with daily CBCT TOTAL: 7,800 cGy in 39 Fractions ELAPSED TIME: 56 days. HPI: Denies new problems. Main complaint hot flashes. Data Reviewed: Most recent labs PSA (ng/mL) Date Value 04/19/2022 <0.02 01/15/2022 <0.02 11/09/2021 0.16 09/05/2021 36.20 PSA. 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 and repeat biopsy showing [place] 7 (3+4) adenocarcinoma. Overall doing well without evidence of recurrence. PSA remains undetectable. Has been off Lupron now, last dose approximately 9 months ago. Recommend continued PSA surveillance. Total Time Spent: 5 minutes Yung Kim MD documented in this encounter [facility] 01-03-2022 History of Present illness Narrative [facility] Radiation Oncology Department RADIATION ONCOLOGY - [...] PM documented in this encounter [facility] 12-18-2021 History of Present illness Narrative [facility] Radiation Oncology Department RADIATION ONCOLOGY - COMPLETION NOTE PATIENT: JOSÉ MIGUEL ROTH: 1940 DATES OF TREATMENT: 10/23/2021 to 12/19/2019 DIAGNOSIS: Prostate adenocarcinoma, initial PSA 8, biopsy [place] score 3 + 4 = 7 (grade group 2), clinical stage T1c, N0, M0, stage IIB [T1-T2, N0, M0, PSA <20, GG 2] (AJCC 8th ed.), s/p TRUS Random biopsy, Patient elected observation and was found to have progression, PSA 08/2021 36.2. and repeat biopsy showing [place] 7 (3+4) adenocarcinoma. AREA TREATED: Pelvis Prostate [...] PM documented in this encounter [facility] 12-11-2021 History of Present illness Narrative [...] MD documented in this encounter [facility] 05-01-2012 History of Past i llness [...] 56, Troponin T .37 on admission to [facility] Wide-complex tachycardia 04/28/2012 012 Overview: Presented to OSH 04/28/12 in setting acute MD with wide complex tachycardia SVT versus VT. Given adenosine x2 without effect, diltiazem bolus and infusion with no effect. Spontaneous conversion to NSR. Had [facility] run [facility] Pre-op evaluation 04/28/2012 05/01/2012 Overview: Preoperative evaluation for CABG. Not ReDo -Carotids: Ordered -Vein Mapping: Ordered -Bedside PFTs: Ordered -Formal TTE: Ordered -CXR: Completed documented as of this encounter (statuses as of 12/18/2021) [facility] History of Past illness Narrative* Problem [...] 56, Troponin T .37 on admission to [facility] Wide-complex tachycardia 04/28/2012 012 Overview: Presented to OSH 04/28/12 in setting acute MD with wide complex tachycardia SVT versus VT. [...] encounter (statuses as of 12/21/2021) [facility] History of Past illness Narrative* Problem [...] 56, Troponin T .37 on admission to [facility] Wide-complex tachycardia 04/28/2012 012 Overview: Presented to OSH 04/28/12 in setting acute MD with wide complex tachycardia SVT versus VT. [...] encounter (statuses as of 01/15/2022) [facility] History of Past illness Narrative* Problem [...] 56, Troponin T .37 on admission to [facility] Wide-complex tachycardia 04/28/2012 012 Overview: Presented to OSH 04/28/12 in setting acute MD with wide complex tachycardia SVT versus VT. Given adenosine x2 without effect, diltiazem bolus and infusion with no effect. Spontaneous conversion to NSR. Had short run of wide complex tachycardia [facility] Pre-op evaluation 04/28/2012 05/01/2012 Overview: Preoperative evaluation for CABG. Not ReDo -Carotids: Ordered -Vein Mapping: Ordered -Bedside PFTs: Ordered -Formal TTE: Ordered -CXR: Completed documented as of this encounter (statuses as of 01/18/2022) [facility] History of Past illness Narrative* Problem [...] 56, Troponin T .37 on admission to [facility] Wide-complex tachycardia 04/28/2012 012 Overview: Presented to OSH 04/28/12 in setting acute MD with wide complex tachycardia SVT versus VT. Given adenosine x2 without effect, diltiazem bolus and infusion with no effect. Spontaneous conversion to NSR. Had short run of wide complex tachycardia [facility] Pre-op evaluation 04/28/2012 05/01/2012 Overview: Preoperative evaluation for CABG. Not ReDo -Carotids: Ordered -Vein Mapping: Ordered -Bedside PFTs: Ordered -Formal TTE: Ordered -CXR: Completed documented as of this encounter (statuses as of 02/06/2022) [facility] History of Past illness Narrative* Problem [...] 56, Troponin T .37 on admission to [facility] Wide-complex tachycardia 04/28/2012 012 Overview: Presented to OSH 04/28/12 in setting acute MD with wide complex tachycardia SVT versus VT. Given adenosine x2 without effect, diltiazem bolus and infusion with no effect. Spontaneous conversion to NSR. Had short run of wide complex tachycardia upon arrival to [facility] from [facility]. Pre-op evaluation 04/28/2012 05/01/2012 Overview: Preoperative evaluation for CABG. Not ReDo -Carotids: Ordered -Vein Mapping: Ordered -Bedside PFTs: Ordered -Formal TTE: Ordered -CXR: Completed documented as of this encounter (statuses as of 04/26/2022) [facility] History of Past illness Narrative* Problem [...] 56, Troponin T .37 on admission to [facility] Wide-complex tachycardia 04/28/2012 012 Overview: Presented to OSH 04/28/12 in setting acute MD with wide complex tachycardia SVT versus VT. Given adenosine x2 without effect, diltiazem bolus and infusion with no effect. Spontaneous conversion to NSR. Had short run of wide complex tachycardia upon arrival to [facility] from [facility]. Pre-op evaluation 04/28/2012 05/01/2012 Overview: Preoperative evaluation for CABG. Not ReDo -Carotids: Ordered -Vein Mapping: Ordered -Bedside PFTs: Ordered -Formal TTE: Ordered -CXR: Completed documented as of this encounter (statuses as of 05/08/2022) [facility] History of Past illness Narrative* Problem [...] 56, Troponin T .37 on admission to [facility] Wide-complex tachycardia 04/28/2012 012 Overview: Presented to OSH 04/28/12 in setting acute MD with wide complex tachycardia SVT versus VT. Given adenosine x2 without effect, diltiazem bolus and infusion with no effect. Spontaneous conversion to NSR. Had short run of wide complex tachycardia upon arrival to [facility] from [facility]. Pre-op evaluation 04/28/2012 05/01/2012 Overview: Preoperative evaluation for CABG. Not ReDo -Carotids: Ordered -Vein Mapping: Ordered -Bedside PFTs: Ordered -Formal TTE: Ordered -CXR: Completed documented as of this encounter (statuses as of 06/06/2022) [facility] History of Past illness Narrative* Problem [...] 56, Troponin T .37 on admission to [facility] Wide-complex tachycardia 04/28/2012 012 Overview: Presented to OSH 04/28/12 in setting acute MD with wide complex tachycardia SVT versus VT. Given adenosine x2 without effect, diltiazem bolus and infusion with no effect. Spontaneous conversion to NSR. Had short run of wide complex tachycardia [facility] Pre-op evaluation 04/28/2012 05/01/2012 Overview: Preoperative evaluation for CABG. Not ReDo -Carotids: Ordered -Vein Mapping: Ordered -Bedside PFTs: Ordered -Formal TTE: Ordered -CXR: Completed documented as of this encounter (statuses as of 06/06/2022) [facility] History of Past illness Narrative* Problem [...] 56, Troponin T .37 on admission to [facility] Wide-complex tachycardia 04/28/2012 012 Overview: Presented to OSH 04/28/12 in setting acute MD with wide complex tachycardia SVT versus VT. Given adenosine x2 without effect, diltiazem bolus and infusion with no effect. Spontaneous conversion to NSR. Had short run of wide complex tachycardia upon arrival to [facility] from [facility]. Pre-op evaluation 04/28/2012 05/01/2012 Overview: Preoperative evaluation for CABG. Not ReDo -Carotids: Ordered -Vein Mapping: Ordered -Bedside PFTs: Ordered -Formal TTE: Ordered -CXR: Completed documented as of this encounter (statuses as of 07/31/2022) [facility] History of Past illness Narrative* Problem [...] 56, Troponin T .37 on admission to [facility] Wide-complex tachycardia 04/28/2012 012 Overview: Presented to OSH 04/28/12 in setting acute MD with wide complex tachycardia SVT versus VT. Given adenosine x2 without effect, diltiazem bolus and infusion with no effect. Spontaneous conversion to NSR. Had short run of wide complex tachycardia upon arrival to [facility] from [facility]. Pre-op evaluation 04/28/2012 05/01/2012 Overview: Preoperative evaluation for CABG. Not ReDo -Carotids: Ordered -Vein Mapping: Ordered -Bedside PFTs: Ordered -Formal TTE: Ordered -CXR: Completed documented as of this encounter (statuses as of 08/01/2022) [facility] History of Past illness Narrative* Problem [...] 56, Troponin T .37 on admission to [facility] Wide-complex tachycardia 04/28/2012 012 Overview: Presented to OSH 04/28/12 in setting acute MD with wide complex tachycardia SVT versus VT. Given adenosine x2 without effect, diltiazem bolus and infusion with no effect. Spontaneous conversion to NSR. Had short run of wide complex tachycardia upon arrival to [facility] from [facility]. Pre-op evaluation 04/28/2012 05/01/2012 Overview: Preoperative evaluation for CABG. Not ReDo -Carotids: Ordered -Vein Mapping: Ordered -Bedside PFTs: Ordered -Formal TTE: Ordered -CXR: Completed documented as of this encounter (statuses as of 08/03/2022) [facility] History of Past illness Narrative* Problem [...] 56, Troponin T .37 on admission to [facility] Wide-complex tachycardia 04/28/2012 012 Overview: Presented to OSH 04/28/12 in setting acute MD with wide complex tachycardia SVT versus VT. Given adenosine x2 without effect, diltiazem bolus and infusion with no effect. Spontaneous conversion to NSR. Had short run of wide complex tachycardia upon arrival to [facility] from [facility]. Pre-op evaluation 04/28/2012 05/01/2012 Overview: Preoperative evaluation for CABG. Not ReDo -Carotids: Ordered -Vein Mapping: Ordered -Bedside PFTs: Ordered -Formal TTE: Ordered -CXR: Completed documented as of this encounter (statuses as of 08/07/2022) [facility] History of Past illness Narrative* Problem [...] 56, Troponin T .37 on admission to [facility] Wide-complex tachycardia 04/28/2012 012 Overview: Presented to OSH 04/28/12 in setting acute MD with wide complex tachycardia SVT versus VT. Given adenosine x2 without effect, diltiazem bolus and infusion with no effect. Spontaneous conversion to NSR. Had short run of wide complex tachycardia upon arrival to [facility] from [facility]. Pre-op evaluation 04/28/2012 05/01/2012 Overview: Preoperative evaluation for CABG. Not ReDo -Carotids: Ordered -Vein Mapping: Ordered -Bedside PFTs: Ordered -Formal TTE: Ordered -CXR: Completed documented as of this encounter (statuses as of 08/17/2022) [facility] History of Past illness Narrative* Problem [...] 56, Troponin T .37 on admission to [facility] Wide-complex tachycardia 04/28/2012 012 Overview: Presented to OSH 04/28/12 in setting acute MD with wide complex tachycardia SVT versus VT. Given adenosine x2 without effect, diltiazem bolus and infusion with no effect. Spontaneous conversion to NSR. Had short run of wide complex tachycardia upon arrival to [facility] from [facility]. Pre-op evaluation 04/28/2012 05/01/2012 Overview: Preoperative evaluation for CABG. Not ReDo -Carotids: Ordered -Vein Mapping: Ordered -Bedside PFTs: Ordered -Formal TTE: Ordered -CXR: Completed documented as of this encounter (statuses as of 09/03/2022) [facility] History of Past illness Narrative* Problem [...] 56, Troponin T .37 on admission to [facility] Wide-complex tachycardia 04/28/2012 012 Overview: Presented to OSH 04/28/12 in setting acute MD with wide complex tachycardia SVT versus VT. Given adenosine x2 without effect, diltiazem bolus and infusion with no effect. Spontaneous conversion to NSR. Had short run of wide complex tachycardia upon arrival to [facility] from [facility]. Pre-op evaluation 04/28/2012 05/01/2012 Overview: Preoperative evaluation for CABG. Not ReDo -Carotids: Ordered -Vein Mapping: Ordered -Bedside PFTs: Ordered -Formal TTE: Ordered -CXR: Completed documented as of this encounter (statuses as of 09/07/2022) [facility] History of Past illness Narrative* Problem [...] 56, Troponin T .37 on admission to [facility] Wide-complex tachycardia 04/28/2012 012 Overview: Presented to OSH 04/28/12 in setting acute MD with wide complex tachycardia SVT versus VT. Given adenosine x2 without effect, diltiazem bolus and infusion with no effect. Spontaneous conversion to NSR. Had short run of wide complex tachycardia upon arrival to [facility] from [facility]. Pre-op evaluation 04/28/2012 05/01/2012 Overview: Preoperative evaluation for CABG. Not ReDo -Carotids: Ordered -Vein Mapping: Ordered -Bedside PFTs: Ordered -Formal TTE: Ordered -CXR: Completed documented as of this encounter (statuses as of 10/08/2022) [facility] History of Past illness Narrative* Problem [...] 56, Troponin T .37 on admission to [facility] Wide-complex tachycardia 04/28/2012 012 Overview: Presented to OSH 04/28/12 in setting acute MD with wide complex tachycardia SVT versus VT. Given adenosine x2 without effect, diltiazem bolus and infusion with no effect. Spontaneous conversion to NSR. Had short run of wide complex tachycardia upon arrival to [facility] from [facility]. Pre-op evaluation 04/28/2012 05/01/2012 Overview: Preoperative evaluation for CABG. Not ReDo -Carotids: Ordered -Vein Mapping: Ordered -Bedside PFTs: Ordered -Formal TTE: Ordered -CXR: Completed documented as of this encounter (statuses as of 10/26/2022) [facility] History of Past illness Narrative* Problem [...] 56, Troponin T .37 on admission to [facility] Wide-complex tachycardia 04/28/2012 012 Overview: Presented to OSH 04/28/12 in setting acute MD with wide complex tachycardia SVT versus VT. Given adenosine x2 without effect, diltiazem bolus and infusion with no effect. Spontaneous conversion to NSR. Had short run of wide complex tachycardia upon arrival to [facility] from [facility]. Pre-op evaluation 04/28/2012 05/01/2012 Overview: Preoperative evaluation for CABG. Not ReDo -Carotids: Ordered -Vein Mapping: Ordered -Bedside PFTs: Ordered -Formal TTE: Ordered -CXR: Completed documented as of this encounter (statuses as of 10/26/2022) [facility] History of Past illness Narrative* Problem [...] 56, Troponin T .37 on admission to [facility] Wide-complex tachycardia 04/28/2012 012 Overview: Presented to OSH 04/28/12 in setting acute MD with wide complex tachycardia SVT versus VT. Given adenosine x2 without effect, diltiazem bolus and infusion with no effect. Spontaneous conversion to NSR. Had short run of wide complex tachycardia upon arrival to [facility] from [facility]. Pre-op evaluation 04/28/2012 05/01/2012 Overview: Preoperative evaluation for CABG. Not ReDo -Carotids: Ordered -Vein Mapping: Ordered -Bedside PFTs: Ordered -Formal TTE: Ordered -CXR: Completed documented as of this encounter (statuses as of 10/31/2022) [facility] History of Past illness Narrative* Problem [...] 56, Troponin T .37 on admission to [facility] Wide-complex tachycardia 04/28/2012 012 Overview: Presented to OSH 04/28/12 in setting acute MD with wide complex tachycardia SVT versus VT. Given adenosine x2 without effect, diltiazem bolus and infusion with no effect. Spontaneous conversion to NSR. Had short run of wide complex tachycardia upon arrival to [facility] from [facility]. Pre-op evaluation 04/28/2012 05/01/2012 Overview: Preoperative evaluation for CABG. Not ReDo -Carotids: Ordered -Vein Mapping: Ordered -Bedside PFTs: Ordered -Formal TTE: Ordered -CXR: Completed documented as of this encounter (statuses as of 11/02/2022) [facility] History of Past illness Narrative* Problem [...] 56, Troponin T .37 on admission to [facility] Wide-complex tachycardia 04/28/2012 012 Overview: Presented to OSH 04/28/12 in setting acute MD with wide complex tachycardia SVT versus VT. Given adenosine x2 without effect, diltiazem bolus and infusion with no effect. Spontaneous conversion to NSR. Had short run of wide complex tachycardia upon arrival to [facility] from [facility]. Pre-op evaluation 04/28/2012 05/01/2012 Overview: Preoperative evaluation for CABG. Not ReDo -Carotids: Ordered -Vein Mapping: Ordered -Bedside PFTs: Ordered -Formal TTE: Ordered -CXR: Completed documented as of this encounter (statuses as of 11/07/2022) [facility] History of Past illness Narrative* Problem [...] 56, Troponin T .37 on admission to [facility] Wide-complex tachycardia 04/28/2012 012 Overview: Presented to OSH 04/28/12 in setting acute MD with wide complex tachycardia SVT versus VT. Given adenosine x2 without effect, diltiazem bolus and infusion with no effect. Spontaneous conversion to NSR. Had short run of wide complex tachycardia upon arrival to [facility] from [facility]. Pre-op evaluation 04/28/2012 05/01/2012 Overview: Preoperative evaluation for CABG. Not ReDo -Carotids: Ordered -Vein Mapping: Ordered -Bedside PFTs: Ordered -Formal TTE: Ordered -CXR: Completed documented as of this encounter (statuses as of 11/29/2022) [facility] History of Past illness Narrative* Problem [...] 56, Troponin T .37 on admission to [facility] Wide-complex tachycardia 04/28/2012 012 Overview: Presented to OSH 04/28/12 in setting acute MD with wide complex tachycardia SVT versus VT. Given adenosine x2 without effect, diltiazem bolus and infusion with no effect. Spontaneous conversion to NSR. Had short run of wide complex tachycardia upon arrival to [facility] from [facility]. Pre-op evaluation 04/28/2012 05/01/2012 Overview: Preoperative evaluation for CABG. Not ReDo -Carotids: Ordered -Vein Mapping: Ordered -Bedside PFTs: Ordered -Formal TTE: Ordered -CXR: Completed documented as of this encounter (statuses as of 11/30/2022) [facility] History of Past illness Narrative* Problem [...] 56, Troponin T .37 on admission to [facility] Wide-complex tachycardia 04/28/2012 012 Overview: Presented to OSH 04/28/12 in setting acute MD with wide complex tachycardia SVT versus VT. Given adenosine x2 without effect, diltiazem bolus and infusion with no effect. Spontaneous conversion to NSR. Had short run of wide complex tachycardia upon arrival to [facility] from [facility]. Pre-op evaluation 04/28/2012 05/01/2012 Overview: Preoperative evaluation for CABG. Not ReDo -Carotids: Ordered -Vein Mapping: Ordered -Bedside PFTs: Ordered -Formal TTE: Ordered -CXR: Completed documented as of this encounter (statuses as of 12/03/2022) [facility] History of Past illness Narrative* Problem [...] 56, Troponin T .37 on admission to [facility] Wide-complex tachycardia 04/28/2012 012 Overview: Presented to OSH 04/28/12 in setting acute MD with wide complex tachycardia SVT versus VT. Given adenosine x2 without effect, diltiazem bolus and infusion with no effect. Spontaneous conversion to NSR. Had short run of wide complex tachycardia upon arrival to [facility] from [facility]. Pre-op evaluation 04/28/2012 05/01/2012 Overview: Preoperative evaluation for CABG. Not ReDo -Carotids: Ordered -Vein Mapping: Ordered -Bedside PFTs: Ordered -Formal TTE: Ordered -CXR: Completed documented as of this encounter (statuses as of 02/21/2023) [facility] History of Past illness Narrative* Problem [...] 56, Troponin T .37 on admission to [facility] Wide-complex tachycardia 04/28/2012 Overview: Presented to OSH 04/28/12 in setting acute MD with wide complex tachycardia SVT versus VT. Given adenosine x2 without effect, diltiazem bolus and infusion with no effect. Spontaneous conversion to NSR. Had short run of wide complex tachycardia [facility] Pre[facility] evaluation 04/28/2012 05/01/2012 Overview: Preoperative evaluation for CABG. Not ReDo -Carotids: Ordered -Vein Mapping: Ordered -Bedside PFTs: Ordered -Formal TTE: Ordered -CXR: Completed documented as of this encounter (statuses as of 04/27/2023) [facility] History of Past illness Narrative* Problem [...] 56, Troponin T .37 on admission to [facility] Wide-complex tachycardia 04/28/2012 Overview: Presented to OSH 04/28/12 in setting acute MD with wide complex tachycardia SVT versus VT. Given adenosine x2 without effect, diltiazem bolus and infusion with no effect. Spontaneous conversion to NSR. Had short run of wide complex tachycardia upon arrival to [facility] from [facility]. Pre-op evaluation 04/28/2012 05/01/2012 Overview: Preoperative evaluation for CABG. Not ReDo -Carotids: Ordered -Vein Mapping: Ordered -Bedside PFTs: Ordered -Formal TTE: Ordered -CXR: Completed documented as of this encounter (statuses as of 05/09/2023) [facility] History of Past illness Narrative* Problem [...] 56, Troponin T .37 on admission to [facility] Wide-complex tachycardia 04/28/2012 Overview: Presented to OSH 04/28/12 in setting acute MD with wide complex tachycardia SVT versus VT. Given adenosine x2 without effect, diltiazem bolus and infusion with no effect. Spontaneous conversion to NSR. Had short run of wide complex tachycardia [facility] Pre[facility] evaluation 04/28/2012 05/01/2012 Overview: Preoperative evaluation for CABG. Not ReDo -Carotids: Ordered -Vein Mapping: Ordered -Bedside PFTs: Ordered -Formal TTE: Ordered -CXR: Completed documented as of this encounter (statuses as of 08/23/2023) [facility] History of Past illness Narrative* Problem [...] 56, Troponin T .37 on admission to [facility] Wide-complex tachycardia 04/28/2012 Overview: Presented to OSH 04/28/12 in setting acute MD with wide complex tachycardia SVT versus VT. Given adenosine x2 without effect, diltiazem bolus and infusion with no effect. Spontaneous conversion to NSR. Had short run of wide complex tachycardia [facility] Pre[facility] 04/28/2012 05/01/2012 Overview: Preoperative evaluation for CABG. Not ReDo -Carotids: Ordered -Vein Mapping: Ordered -Bedside PFTs: Ordered -Formal TTE: Ordered -CXR: Completed documented as of this encounter (statuses as of 08/27/2023) [facility] Malignant ne[facility] of prostate [...] ClinicEvaluation note* Diagnosis Coronary artery disease involving [place] coronary artery of [place] heart without angina pectoris- Primary Heart failure, [...] stenosis, asymptomatic, bilateral documented in this encounter [facility] note* Diagnosis Chronic systolic heart failure (HCC)- Primary Chronic systolic heart failure Coronary artery disease involving [place] coronary artery of [place] heart without angina pectoris documented in this encounter [facility] note* Diagnosis Malignant neoplasm of prostate (HCC)- Primary Malignant neoplasm of prostate documented [facility] [employer] note* Diagnosis Chronic systolic heart failure (HCC) Chronic systolic heart failure Coronary artery disease involving [place] coronary artery of [place] heart without angina pectoris documented in this encounter [facility] note* Diagnosis Coronary artery disease involving [place] coronary artery of [place] heart without angina pectoris- Primary Heart failure, acute systolic (HCC) Acute systolic heart failure Preop testing Preoperative examination, unspecified Carotid stenosis, asymptomatic, bilateral Preoperative cardiovascular examination Pre-operative cardiovascular examination documented in this encounter [facility] note* Diagnosis 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 kidney disease, unspecified CKD stage, unspecified whether manager terminal insulin use (HCC)- Primary PVD (peripheral vascular disease) (HCC) Peripheral vascular disease, unspecified Atherosclerotic heart disease of [place]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) documented in this encounter [facility] for referral (narrative)* Outpatient Procedure (Routine) - Authorized Specialty Diagnoses / Procedures Referred By Morrisac t Referred To Contact [facility] [place] Diagnoses Chronic systolic heart failure (HCC) Procedures ECHO ECHO TTHRC R-T 2D W/WOM-MODE COMPL SPEC&COLR D Andreas Del Cid MD [address] [place] [address] [employer] [facility] [place] [address] Referral ID Status Reason Start Date Expiration Date Visits Requested Visits Authorized [id number] Authorized Auto-Generat ed Referral 06/06/2022 06/06/2023 1 1 * Outpatient Procedure (Routine) - Authorized Specialty Diagnoses / Procedures Referred By Jordon rao Referred To [facility] Diagnoses Chronic systolic heart failure (HCC) Procedures ECG COMPLETE ECG ROUTINE ECG W/LEAST 12 LDS W/I&R Andreas Del Cid MD [address] [place] [place] [id number] [address] Referral ID Status Reason Start Date Expiration Date Visits Requested Visits Authorized [id number] Authorized Auto-Generat ed Referral 06/06/2022 06/06/2023 1 1 [facility] for referral (narrative)* Outpatient Procedure (Routine) - Authorized Specialty Diagnoses / Procedures Referred By Contac t Referred To Contact [facility] [place] Diagnoses Bilateral carotid artery stenosis Procedures US CAROTID ARTERIES [facility] DUPLEX SCAN EXTRACRANIAL [place] [address] [place] [address] [address] Referral ID Status Reason Start Date Expiration Date Visits Requested Visits Authorized [id number] Authorized Auto-Generat ed Referral 2 08/03/2023 1 1 [facility] for referral (narrative)* Diagnostic Procedure Only (Routine) - Pending Review Specialty Diagnoses / Procedures [facility] To [facility] Diagnoses Chronic systolic heart failure (HCC) Coronary artery disease involving [place] coronary artery of [place] heart without angina pectoris Procedures NM PET/CT CARDIAC VIABILITY MYOCRD IMG PET PRFUJ W/METAB 2RTRACER CNCRNT CT Andreas Del Cid MD [address] [place] [address] [facility] [address] [place] [address] Referral ID Status Reason Start Date Expiration Date Visits Requested Visits Authorized [id number] Pending Review Auto-Generat ed Referral 2 10/06/2023 1 1 * Diagnostic Procedure Only (Routine) - Pending Review Specialty Diagnoses / Procedures [facility] Referred To Contact [facility] Diagnoses Chronic systolic heart failure (HCC) Coronary artery disease involving [place] coronary artery of [place] heart without angina pectoris Procedures NM PET/CT CARDIAC PERF REST/STRESS MYOCRD IMG PET PRFUJ MACHINE GUIDE BASE WINDER STD RST & [facility]S [facility] Andreas Del Cid MD [address] [id number] [facility] [address] [place] [address] Referral ID Status Reason Start Date Expiration Date Visits Requested Visits Authorized [id number] Pending Review Auto-Generat ed Referral 10/06/2023 1 1 [facility] for referral (narrative)* Diagnostic Procedure Only (Routine) - Closed Specialty Diagnoses / Procedures Referred By Contac t Referred To Contact [facility] Diagnoses Chronic systolic heart failure (HCC) Coronary artery disease involving [place] coronary artery of [place] heart without angina pectoris Procedures NM PET/CT CARDIAC VIABILITY MYOCRD IMG PET PRFUJ W/METAB 2RTRACER [facility] Andreas Del Cid MD [address] [place] [address] Molecular [facility] Functional Imaging [address] [place] [address] Referral ID Status Reason Start Date Expiration Date V isits Requested Visits Authorized [id number] Closed Auto-Generate d Referral 09/06/2022 10/06/2023 1 1 * Diagnostic Procedure Only (Routine) - Closed Specialty Diagnoses / Procedures Referred By Contac t Referred To Contact [facility] Diagnoses Chronic systolic heart failure (HCC) Coronary artery disease involving [place] coronary artery of [place] heart without angina pectoris Procedures NM PET/CT CARDIAC PERF REST/STRESS MYOCRD IMG PET PRFUJ MACHINE GUIDE BASE WINDER STD RST & STRS CNCRNT CT Andreas Del Cid MD [address] [place] [address] Molecular [facility] Functional Imaging [address] [place] [address] Referral ID Status Reason Start Date Expiration Date V isits Requested Visits Authorized [id number] Closed Auto-Generate d Referral 09/06/2022 10/06/2023 1 1 [facility] Summary Purpose Family History No Family History Records FoundNo Family History Records FoundNo Family History Records FoundNo Family History Records FoundNo Family History Records Found Advance Directives No Advanced Directives Records FoundDocuments on File Type Date Recorded 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 Advance Directive(s) 03/24/2019 7:11 AM Additional Source Comments (unrecognized sect ion and content) No Status Records FoundNo Status Records FoundNo Status Records FoundNo Status Records FoundNo Status Records Found INFORMATION SOURCE (unrecogn ized section and content) DATE CREATED AUTHOR [facility]/29/2019 [facility] DATE CREATED AUTHOR AUTHOR'S ORGANIZ ATION 05/25/2022 [facility] DATE CREATED AUTHOR AUTHOR'S ORGANIZ ATION 02/22/2023 [facility] DATE CREATED AUTHOR AUTHOR'S ORGANIZ ATION 10/02/2023 [facility] DATE CREATED AUTHOR AUTHOR'S ORGANIZ ATION 10/02/2023 [facility] Source Comments (unrecognize d section and content) In the event this informatio n is protected by the Federal Confidentiality of Alcohol and Drug Abuse Patient Records regulations: The Federal rules restrict any use of the information to criminally investigate or prosecute any alcohol or drug abuse patient.[facility] the event this information is protected by the Federal Confidentiality of Alcohol and Drug Abuse Patient Records regulations: The Federal rules restrict any use of the information to criminally investigate or prosecute any alcohol or drug abuse patient.[facility] Hospital[facility] the event this information is protected by the Federal Confidentiality of Alcohol and Drug Abuse Patient Records regulations: The Federal rules restrict any use of the information to criminally investigate or prosecute any alcohol or drug abuse patient.[facility] HospitalIn the event this information is protected by the Federal Confidentiality of Alcohol and Drug Abuse Patient Records regulations: The Federal rules restrict any use of the information to criminally investigate or prosecute any alcohol or drug abuse patient.[facility] Hospital[facility] the event this information is protected by the Federal Confidentiality of Alcohol and Drug Abuse Patient Records regulations: The Federal rules restrict any use of the information to criminally investigate or prosecute any alcohol or drug abuse patient.[facility] Hospital[facility] the event this information is protected by the Federal Confidentiality of Alcohol and Drug Abuse Patient Records regulations: The Federal rules restrict any use of the information to criminally investigate or prosecute any alcohol or drug abuse patient.[facility] HospitalIn the event this information is protected by the Federal Confidentiality of Alcohol and Drug Abuse Patient Records regulations: The Federal rules restrict any use of the information to criminally investigate or prosecute any alcohol or drug abuse patient.[facility] HospitalIn the event this information is protected by the Federal Confidentiality of Alcohol and Drug Abuse Patient Records regulations: The Federal rules restrict any use of the information to criminally investigate or prosecute any alcohol or drug abuse patient.[facility] HospitalIn the event this information is protected by the Federal Confidentiality of Alcohol and Drug Abuse Patient Records regulations: The Federal rules restrict any use of the information to criminally investigate or prosecute any alcohol or drug abuse patient.[facility] HospitalIn the event this information is protected by the Federal Confidentiality of Alcohol and Drug Abuse Patient Records regulations: The Federal rules restrict any use of the information to criminally investigate or prosecute any alcohol or drug abuse patient.[facility] HospitalIn the event this information is protected by the Federal Confidentiality of Alcohol and Drug Abuse Patient Records regulations: The Federal rules restrict any use of the information to criminally investigate or prosecute any alcohol or drug abuse patient.[facility] HospitalIn the event this information is protected by the Federal Confidentiality of Alcohol and Drug Abuse Patient Records regulations: The Federal rules restrict any use of the information to criminally investigate or prosecute any alcohol or drug abuse patient.[facility] HospitalIn the event this information is protected by the Federal Confidentiality of Alcohol and Drug Abuse Patient Records regulations: The Federal rules restrict any use of the information to criminally investigate or prosecute any alcohol or drug abuse patient.[facility] HospitalIn the event this information is protected by the Federal Confidentiality of Alcohol and Drug Abuse Patient Records regulations: The Federal rules restrict any use of the information to criminally investigate or prosecute any alcohol or drug abuse patient.[facility] HospitalIn the event this information is protected by the Federal Confidentiality of Alcohol and Drug Abuse Patient Records regulations: The Federal rules restrict any use of the information to criminally investigate or prosecute any alcohol or drug abuse patient.[facility] HospitalIn the event this information is protected by the Federal Confidentiality of Alcohol and Drug Abuse Patient Records regulations: The Federal rules restrict any use of the information to criminally investigate or prosecute any alcohol or drug abuse patient.[facility] HospitalIn the event this information is protected by the Federal Confidentiality of Alcohol and Drug Abuse Patient Records regulations: The Federal rules restrict any use of the information to criminally investigate or prosecute any alcohol or drug abuse patient.[facility] HospitalIn the event this information is protected by the Federal Confidentiality of Alcohol and Drug Abuse Patient Records regulations: The Federal rules restrict any use of the information to criminally investigate or prosecute any alcohol or drug abuse patient.[facility] HospitalIn the event this information is protected by the Federal Confidentiality of Alcohol and Drug Abuse Patient Records regulations: The Federal rules restrict any use of the information to criminally investigate or prosecute any alcohol or drug abuse patient.[facility] HospitalIn the event this information is protected by the Federal Confidentiality of Alcohol and Drug Abuse Patient Records regulations: The Federal rules restrict any use of the information to criminally investigate or prosecute any alcohol or drug abuse patient.[facility] HospitalIn the event this information is protected by the Federal Confidentiality of Alcohol and Drug Abuse Patient Records regulations: The Federal rules restrict any use of the information to criminally investigate or prosecute any alcohol or drug abuse patient.[facility] HospitalIn the event this information is protected by the Federal Confidentiality of Alcohol and Drug Abuse Patient Records regulations: The Federal rules restrict any use of the information to criminally investigate or prosecute any alcohol or drug abuse patient.[facility] HospitalIn the event this information is protected by the Federal Confidentiality of Alcohol and Drug Abuse Patient Records regulations: The Federal rules restrict any use of the information to criminally investigate or prosecute any alcohol or drug abuse patient.[facility] HospitalIn the event this information is protected by the Federal Confidentiality of Alcohol and Drug Abuse Patient Records regulations: The Federal rules restrict any use of the information to criminally investigate or prosecute any alcohol or drug abuse patient.[facility] HospitalIn the event this information is protected by the Federal Confidentiality of Alcohol and Drug Abuse Patient Records regulations: The Federal rules restrict any use of the information to criminally investigate or prosecute any alcohol or drug abuse patient.[facility] HospitalIn the event this information is protected by the Federal Confidentiality of Alcohol and Drug Abuse Patient Records regulations: The Federal rules restrict any use of the information to criminally investigate or prosecute any alcohol or drug abuse patient.[facility] HospitalIn the event this information is protected by the Federal Confidentiality of Alcohol and Drug Abuse Patient Records regulations: The Federal rules restrict any use of the information to criminally investigate or prosecute any alcohol or drug abuse patient.[facility] HospitalIn the event this information is protected by the Federal Confidentiality of Alcohol and Drug Abuse Patient Records regulations: The Federal rules restrict any use of the information to criminally investigate or prosecute any alcohol or drug abuse patient.[facility] HospitalIn the event this information is protected by the Federal Confidentiality of Alcohol and Drug Abuse Patient Records regulations: The Federal rules restrict any use of the information to criminally investigate or prosecute any alcohol or drug abuse patient.[facility] HospitalIn the event this information is protected by the Federal Confidentiality of Alcohol and Drug Abuse Patient Records regulations: The Federal rules restrict any use of the information to criminally investigate or prosecute any alcohol or drug abuse patient.[facility] HospitalIn the event this information is protected by the Federal Confidentiality of Alcohol and Drug Abuse Patient Records regulations: The Federal rules restrict any use of the information to criminally investigate or prosecute any alcohol or drug abuse patient.[facility] Reason for Visit (unrecogniz ed section and content) Reason Comments Radiotherapy On-treatment Visit Reason Comments Prostate Cancer Reason Comments Appointment Reason Comments Received Outside Medical Records Reason Comments Consult Reason Comments Radiology NM Specialty Diagnoses / Procedures Referred By Contac t Referred To Contact [facility]LEC[facility]AG[facility] Diagnoses Chronic systolic heart failure (HCC) Coronary artery disease involving [place] coronary artery of [place] heart without angina pectoris Procedures NM PET/CT CARDIAC PERF REST/STRESS MYOCRD IMG PET PRFUJ MACHINE GUIDE BASE WINDER STD RST & STRS CNCRNT CT Andreas Del Cid MD [address] [place] [address] Molecular & Functional Imaging [address] [place] [address] Referral ID Status Reason Start Date Expiration Date V isits Requested Visits Authorized [id number] Closed Auto-Generate d Referral 09/06/2022 10/06/2023 1 1 Reason Comments Surgery Cancelled Reason Comments Nm Pet Request Reason Onset Date Comments Refill Request 08/22/2023 Reason Comments Appointment Left a message with the patient regarding the cancellation of 10/22/2023 with . Informed the patient of the new scheduled appointment on 10/29/2023 with . Care Teams (unrecognized sec tion and content) Executive Kitchen Manager Relationship Specialty Start Date End Date Francisca Thompson MD PCP - General Family Practice 05/30/12 Yuliet Gonzaleztan Vagesh [address] [place] [address] Primary Staff Physician Cardiology 12/02/18 Executive Kitchen Manager Relationship Specialty Start Date End Date Francisca Thompson MD PCP - General Family Practice 05/30/12 Carlos Tom Vagesh [address] [place] [address] Primary Staff Physician Cardiology 12/02/18 Executive Kitchen Manager Relationship Specialty Start Date End Date Francisca Thompson MD PCP - General Family Practice 05/30/12 Carlos Tom Vagesh [address] [place] [address] Primary Staff Physician Cardiology 12/02/18 Executive Kitchen Manager Relationship Specialty Start Date End Date Francisca Thompson MD PCP - General Family Practice 05/30/12 Tom Gonzalez Vagesh [address] [place] [address] Primary Staff Physician Cardiology 12/02/18 Executive Kitchen Manager Relationship Specialty Start Date End Date Francisca Thompson MD PCP - General Family Practice 05/30/12 [facility] Tom Vagesh [address] [place] [address] Primary Staff Physician Cardiology 12/02/18 Executive Kitchen Manager Relationship Specialty Start Date End Date Francisca Thompson MD PCP - General Family Practice 05/30/12 Tom Gonzalez Vagesh [address] [place] [address] Primary Staff Physician Cardiology 12/02/18 Executive Kitchen Manager Relationship Specialty Start Date End Date Francisca Thompson MD PCP - General Family Medicine 05/30/12 Tom Gonzalez Vagesh [address] [place] [address] Primary Staff Physician Cardiology 12/02/18 Executive Kitchen Manager Relationship Specialty Start Date End Date Francisca Thompson MD PCP - General Family Medicine 05/30/12 Tom Gonzalez Vagmaria r [address] [place] [address] Primary Staff Physician Cardiology 12/02/18 Executive Kitchen Manager Relationship Specialty Start Date End Date Francisca Thompson MD PCP - General Family Medicine 05/30/12 [facility] Tom Vagmaria r [address] [place] [address] Primary Staff Physician Cardiology 12/02/18 Executive Kitchen Manager Relationship Specialty Start Date End Date Francisca Thompson MD PCP - General Family Medicine 05/30/12 Tom Gonzalez Vagesh [address] [place] [address] Primary Staff Physician Cardiology 12/02/18 Executive Kitchen Manager Relationship Specialty Start Date End Date Francisca Thompson MD PCP - General Family Medicine 05/30/12 Felixmireya, Tom Vagesh [address] [place] [address] Primary Staff Physician Cardiology 12/02/18 Executive Kitchen Manager Relationship Specialty Start Date End Date Francisca Thompson MD PCP - General Family Medicine 05/30/12 Carlos, Tom Vagesh [address] [place] [address] Primary Staff Physician Cardiology 12/02/18 Executive Kitchen Manager Relationship Specialty Start Date End Date Francisca Thompson MD PCP - General Family Medicine 05/30/12 [facility] Vagesh [address] [place] [address] Primary Staff Physician Cardiology 12/02/18 Executive Kitchen Manager Relationship Specialty Start Date End Date Francisca Thompson MD PCP - General Family Medicine 05/30/12 Tom Gonzalez Vagesh [address] [place] [address] Primary Staff Physician Cardiology 12/02/18 Executive Kitchen Manager Relationship Specialty Start Date End Date Francisca Thompson MD PCP - General Family Medicine 05/30/12 Carlos, Tom Vagesh [address] [place] [address] Primary Staff Physician Cardiology 12/02/18 Executive Kitchen Manager Relationship Specialty Start Date End Date Francisca Thompson MD PCP - General Family Medicine 05/30/12 [facility] [address] [place] [address] Primary Staff Physician Cardiology 12/02/18 Executive Kitchen Manager Relationship Specialty Start Date End Date Francisca Thompson MD PCP - General Family Medicine 05/30/12 [facility] [address] [place] [address] Primary Staff Physician Cardiology 12/02/18 Executive Kitchen Manager Relationship Specialty Start Date End Date Francisca Thompson MD PCP - General Family Medicine 05/30/12 [facility] [address] [place] [address] Primary Staff Physician Cardiology 12/02/18 Executive Kitchen Manager Relationship Specialty Start Date End Date Francisca Thompson MD PCP - General Family Medicine 05/30/12 [facility] [address] [place] [address] Primary Staff Physician Cardiology 12/02/18 Executive Kitchen Manager Relationship Specialty Start Date End Date Francisca Thompson MD PCP - General Family Medicine 05/30/12 Tom Gonzalez [address] [place] [address] Primary Staff Physician Cardiology 12/02/18 Andreas Del Cid MD [address] [place] [address] Primary Staff Physician Cardiology 04/26/23 Executive Kitchen Manager Relationship Specialty Start Date End Date Francisca Thompson MD PCP - General Family Medicine 05/30/12 Tom Gonzalez [address] [place] [address] Primary Staff Physician Cardiology 12/02/18 Andreas Del Cid MD [address] [place] [address] Primary Staff Physician Cardiology 04/26/23 Executive Kitchen Manager Relationship Specialty Start Date End Date Francisca Thompson MD PCP - General Family Medicine 05/30/12 Tom Gonzalez [address] [place] [address] Primary Staff Physician Cardiology 12/02/18 Andreas Del Cid MD [address] [place] [address] Primary Staff Physician Cardiology 04/26/23 Executive Kitchen Manager Relationship Specialty Start Date End Date Francisca Thompson MD PCP - General Family Medicine 05/30/12 Tom Gonzalez [address] [place] [address] Primary Staff Physician Cardiology 12/02/18 Andreas Del Cid MD [address] [place], [place] [id number] Primary Staff Physician Cardiology 04/26/23 FOR RECORDS [...] BE BASED ON THE PRIMARY CLINICAL RECORDS. [facility] [employer] [facility]. provides no warranty or guarantee of the accuracy or completeness of information in this document.
[2023-10-09 15:38] LABS: Basophils Percent Auto 0.4 % (0.2-2.0); Eosinophils Absolute Auto 0.3 10^3/uL (0.0-0.7); Eosinophils Percent Auto 3.7 % (0.9-7.0); Hematocrit 42.7 % (42.0-54.0); Hemoglobin 13.2 g/dL (14.0-18.0); Immature Granulocytes Abs Auto 0.02 10^3/uL (0.00-0.03); Immature Granulocytes Pct Auto 0.3 % (0.0-0.5); Lymphocytes Absolute Auto 1.2 10^3/uL (1.2-3.8); Lymphocytes Percent Auto 16.5 % (20.5-60.0); Mean Corpuscular HGB Conc 30.9 g/dL (29.9-35.2); Mean Corpuscular Hemoglobin 28.9 pg (25.9-34.0); Mean Corpuscular Volume 93.4 fL (80.0-94.0); Mean Platelet Volume 10.8 fL (9.5-13.5); Monocytes Absolute Auto 0.6 10^3/uL (0.3-0.8); Neutrophils Absolute Auto 5.2 10^3/uL (1.4-6.5); Neutrophils Percent Auto 71.1 % (43.0-75.0); Platelet Count 179 10^3/uL (150-450); Red Blood Count 4.57 10^6/uL (4.70-6.10); Red Cell Distribution Width 14.5 % (11.0-15.0); White Blood Count 7.3 10^3/uL (4.0-11.0)
[2023-10-09 16:19] LABS: Alanine Aminotransferase 26 U/L (16-63); Albumin Globulin Ratio 0.8; Albumin Level 3.7 g/dL (3.4-5.0); Alkaline Phosphatase 114 U/L (46-116); Anion Gap 11.1; Aspartate Amino Transferase 24 U/L (15-37); BUN Creatinine Ratio 16.2; Bilirubin Total 1.1 mg/dL (0.2-1.0); Carbon Dioxide 29.2 mmol/L (21.0-32.0); Chloride 99 mmol/L (98-107); Estimated GFR (African America 36 (>=60); Estimated GFR (Non-African Ame 29 (>=60); Globulin 4.6 g/dL; Glucose 99 mg/dL (74-106); Potassium 4.3 mmol/L (3.5-5.1); Sodium 135 mmol/L (136-145); Total Protein 8.3 g/dL (6.4-8.2)
[2023-10-09 16:26] LABS: Troponin I High Sensitivity 932.7 pg/mL (4.0-76.1)
[2023-10-17 19:08] LABS: Free Testosterone(Direct) 1.2 pg/mL (6.6-18.1); Testosterone 90 ng/dL (264-916)
== END 2023-10-09 15:11 | disposition home or self-care (01) ==
LOC: LAB 15:11
PROVIDERS: PCP Family Medicine; Visit Provider Family Medicine
DX: I11.0 Hypertensive heart disease with heart failure (principal); I50.30 Unspecified diastolic (congestive) heart failure
CPT/HCPCS: 36415; 80053; 83880; 84402; 84403; 84484; 85025

== ENCOUNTER 2023-10-21 16:02 | Outpatient (OUT) | payer MEDICARE, OTHER, SELFPAY ==
[2023-10-21 16:59] LABS: Anion Gap 12.7; BUN Creatinine Ratio 19.4; Calcium 9.4 mg/dL (8.5-10.1); Carbon Dioxide 28.3 mmol/L (21.0-32.0); Chloride 102 mmol/L (98-107); Estimated GFR (African America 37 (>=60); Estimated GFR (Non-African Ame 30 (>=60); Glucose 95 mg/dL (74-106); Sodium 139 mmol/L (136-145)
== END 2023-10-21 16:03 | disposition home or self-care (01) ==
PROVIDERS: PCP Family Medicine; Visit Provider Nurse Practitioner Family
DX: I50.22 Chronic systolic (congestive) heart failure (principal)
CPT/HCPCS: 36415; 80048

== ENCOUNTER 2023-10-31 16:42 | Outpatient (OUT) | payer MEDICARE, OTHER, SELFPAY ==
[2023-10-31 17:34] LABS: Anion Gap 15.4; BUN Creatinine Ratio 17.6; Calcium 9.3 mg/dL (8.5-10.1); Carbon Dioxide 28.8 mmol/L (21.0-32.0); Chloride 104 mmol/L (98-107); Estimated GFR (African America 35 (>=60); Estimated GFR (Non-African Ame 29 (>=60); Glucose 97 mg/dL (74-106); Potassium 4.2 mmol/L (3.5-5.1); Sodium 144 mmol/L (136-145)
== END 2023-10-31 16:43 | disposition home or self-care (01) ==
PROVIDERS: PCP Family Medicine; Visit Provider Internal Medicine Interventional Cardiology
DX: I50.22 Chronic systolic (congestive) heart failure (principal)
CPT/HCPCS: 36415; 80048; 83880

== ENCOUNTER 2023-11-04 13:09 | Outpatient (OUT) | payer MEDICARE, OTHER, SELFPAY ==
--- NOTE | 2023-11-04 13:17 | XR_ITS ---
The [address] [address] Patient Name: LANDEN ROTH MRN: [id number] date: 1940 Sex: M Assigned Patient Location: [facility] Current Patient Location: RAD Accession/Order Number: [id number] Exam Date: 11/04/2023 13:24 Report Date: 11/04/2023 13:57 At the request of: FRANCISCA THOMPSON Procedure: XR chest 2V EXAM: XR chest 2V HISTORY: Heart Failure I50.9, Hyperkalemia E87.5 COMPARISON: 09/26/2023 TECHNIQUE: Upright PA and lateral chest x-ray FINDINGS: The heart is enlarged without vascular congestion. 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 Subtle opacity at the left lung base is probably a small effusion or pleural thickening. No acute infiltrate, effusion or pneumothorax otherwise identified. The osseous structures are grossly intact. XR/XR chest 2V IMPRESSION: Mild cardiac enlargement without overt cardiac decompensation. A small left pleural effusion is suggested and may be present. There is no evidence of a focal infiltrate, and the overall appearance of the chest is unchanged. Electronically authenticated by: MARIA REBOLLEDO Date: 11/04/2023 13:57
[2023-11-04 13:41] LABS: Alanine Aminotransferase 16 U/L (16-63); Albumin Globulin Ratio 0.7; Albumin Level 3.1 g/dL (3.4-5.0); Alkaline Phosphatase 112 U/L (46-116); Anion Gap 10.9; Aspartate Amino Transferase 22 U/L (15-37); BUN Creatinine Ratio 16.9; Bilirubin Total 0.9 mg/dL (0.2-1.0); Calcium 9.2 mg/dL (8.5-10.1); Carbon Dioxide 31.5 mmol/L (21.0-32.0); Chloride 106 mmol/L (98-107); Estimated GFR (African America 35 (>=60); Estimated GFR (Non-African Ame 29 (>=60); Globulin 4.2 g/dL; Glucose 120 mg/dL (74-106); Magnesium 2.1 mg/dL (1.8-2.4); Potassium 3.4 mmol/L (3.5-5.1); Sodium 145 mmol/L (136-145); Total Protein 7.3 g/dL (6.4-8.2)
[2023-11-04 14:06] LABS: Basophils Absolute Auto 0.1 10^3/uL (0.0-0.1); Basophils Percent Auto 0.9 % (0.2-2.0); Eosinophils Absolute Auto 0.2 10^3/uL (0.0-0.7); Eosinophils Percent Auto 2.8 % (0.9-7.0); Hematocrit 38.9 % (42.0-54.0); Hemoglobin 11.9 g/dL (14.0-18.0); Immature Granulocytes Abs Auto 0.02 10^3/uL (0.00-0.03); Immature Granulocytes Pct Auto 0.3 % (0.0-0.5); Lymphocytes Absolute Auto 1.3 10^3/uL (1.2-3.8); Mean Corpuscular HGB Conc 30.6 g/dL (29.9-35.2); Mean Corpuscular Hemoglobin 28.7 pg (25.9-34.0); Monocytes Absolute Auto 0.6 10^3/uL (0.3-0.8); Monocytes Percent Auto 9.1 % (1.7-12.0); Neutrophils Absolute Auto 4.3 10^3/uL (1.4-6.5); Neutrophils Percent Auto 66.9 % (43.0-75.0); Platelet Count 179 10^3/uL (150-450); Red Blood Count 4.14 10^6/uL (4.70-6.10); Red Cell Distribution Width 14.7 % (11.0-15.0); White Blood Count 6.4 10^3/uL (4.0-11.0)
== END 2023-11-04 13:10 | disposition home or self-care (01) ==
LOC: RAD 13:09
PROVIDERS: PCP Family Medicine; Visit Provider Family Medicine
DX: E87.5 Hyperkalemia (principal); I50.9 Heart failure, unspecified
CPT/HCPCS: 36415; 71046; 80053; 83735; 83880; 85025

== ENCOUNTER 2023-11-07 13:01 | Outpatient (OUT) | payer MEDICARE, OTHER, SELFPAY ==
--- NOTE | 2023-11-07 13:00 | RT_ITS ---
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 Findings were considered accurate and reproducible. Both pre- and post-bronchodilator values utilized for spirometry. Spirometry (based on pre-bronchodilator values): -FEV1/FVC: Reduced @ 69% -FEV1: Moderately reduced @ 65% -FVC: Reduced @ 67% -There is no significant bronchodilator response. Lung volumes by plethysmography (based on pre-bronchodilator values): -RV: Reduced @ 68% -TLC: Moderately reduced @ 68%, though improves to 76% with bronchodilators Diffusion capacity: -DLCO: Very severe reduction @ 36% when corrected for Hb 11.9g/dL Flow-volume loop: -Moderate restrictive pattern Impressions: -Spirometry suggests moderate obstruction without a bronchodilator response. There is a concomitant restrictive process based on mild-moderate decrease in TLC as well as very severe diffusion impairment. 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 Interstitial lung disease (ILD) remains in the differential. Clinical correlation required. Electronically Signed On 11-12-2023 10:51:27 EST by Marek Ma
[2023-11-07] MEDS: ALBUTEROL SULFATE 2.5 MG/3 ML VIAL NEB IH (14:28)
== END 2023-11-07 13:02 | disposition home or self-care (01) ==
LOC: CARD 13:02
PROVIDERS: PCP Family Medicine; Visit Provider Family Medicine
DX: E87.5 Hyperkalemia (principal); I50.9 Heart failure, unspecified
CPT/HCPCS: 94060; 94726; 94729

== ENCOUNTER 2023-11-13 12:43 | Outpatient (OUT) | payer MEDICARE, OTHER, SELFPAY ==
[2023-11-13 13:46] LABS: Anion Gap 11.5; BUN Creatinine Ratio 20.2; Calcium 9.2 mg/dL (8.5-10.1); Carbon Dioxide 30.2 mmol/L (21.0-32.0); Chloride 103 mmol/L (98-107); Estimated GFR (African America 31 (>=60); Estimated GFR (Non-African Ame 26 (>=60); Glucose 91 mg/dL (74-106); Potassium 3.7 mmol/L (3.5-5.1); Sodium 141 mmol/L (136-145)
== END 2023-11-13 12:44 | disposition home or self-care (01) ==
LOC: LAB 12:44
PROVIDERS: PCP Family Medicine; Visit Provider Internal Medicine Interventional Cardiology
DX: I50.41 Acute combined systolic (congestive) and diastolic (congestive) heart failure (principal)
CPT/HCPCS: 36415; 80048; 83880

== ENCOUNTER 2023-11-18 16:23 | Outpatient (OUT) | payer MEDICARE, OTHER, SELFPAY ==
[2023-11-18 16:47] LABS: Basophils Absolute Auto 0.1 10^3/uL (0.0-0.1); Basophils Percent Auto 0.6 % (0.2-2.0); Eosinophils Absolute Auto 0.1 10^3/uL (0.0-0.7); Eosinophils Percent Auto 1.6 % (0.9-7.0); Hematocrit 41.4 % (42.0-54.0); Hemoglobin 12.8 g/dL (14.0-18.0); Immature Granulocytes Abs Auto 0.03 10^3/uL (0.00-0.03); Immature Granulocytes Pct Auto 0.4 % (0.0-0.5); Lymphocytes Absolute Auto 1.2 10^3/uL (1.2-3.8); Lymphocytes Percent Auto 15.5 % (20.5-60.0); Mean Corpuscular HGB Conc 30.9 g/dL (29.9-35.2); Mean Corpuscular Hemoglobin 28.7 pg (25.9-34.0); Mean Corpuscular Volume 92.8 fL (80.0-94.0); Mean Platelet Volume 11.3 fL (9.5-13.5); Monocytes Absolute Auto 0.8 10^3/uL (0.3-0.8); Monocytes Percent Auto 9.4 % (1.7-12.0); Neutrophils Absolute Auto 5.8 10^3/uL (1.4-6.5); Neutrophils Percent Auto 72.5 % (43.0-75.0); Platelet Count 179 10^3/uL (150-450); Red Blood Count 4.46 10^6/uL (4.70-6.10); Red Cell Distribution Width 15.2 % (11.0-15.0)
[2023-11-18 16:55] LABS: Anion Gap 12.4; BUN Creatinine Ratio 17.9; Calcium 9.4 mg/dL (8.5-10.1); Carbon Dioxide 28.5 mmol/L (21.0-32.0); Chloride 102 mmol/L (98-107); Estimated GFR (African America 34 (>=60); Estimated GFR (Non-African Ame 28 (>=60); Glucose 103 mg/dL (74-106); Potassium 3.9 mmol/L (3.5-5.1); Sodium 139 mmol/L (136-145)
== END 2023-11-18 16:24 | disposition home or self-care (01) ==
LOC: LAB 16:25
PROVIDERS: PCP Family Medicine; Visit Provider Internal Medicine Interventional Cardiology
DX: I50.22 Chronic systolic (congestive) heart failure (principal)
CPT/HCPCS: 36415; 80048; 85025

== ENCOUNTER 2023-11-29 16:00 | Outpatient (OUT) | payer MEDICARE, OTHER, SELFPAY ==
[2023-11-29 16:32] LABS: Basophils Absolute Auto 0.1 10^3/uL (0.0-0.1); Basophils Percent Auto 0.6 % (0.2-2.0); Eosinophils Absolute Auto 0.1 10^3/uL (0.0-0.7); Eosinophils Percent Auto 1.4 % (0.9-7.0); Hematocrit 45.8 % (42.0-54.0); Hemoglobin 14.2 g/dL (14.0-18.0); Immature Granulocytes Abs Auto 0.07 10^3/uL (0.00-0.03); Immature Granulocytes Pct Auto 0.7 % (0.0-0.5); Lymphocytes Absolute Auto 1.5 10^3/uL (1.2-3.8); Lymphocytes Percent Auto 15.6 % (20.5-60.0); Mean Corpuscular Hemoglobin 28.2 pg (25.9-34.0); Mean Corpuscular Volume 91.1 fL (80.0-94.0); Mean Platelet Volume 10.8 fL (9.5-13.5); Monocytes Absolute Auto 0.8 10^3/uL (0.3-0.8); Monocytes Percent Auto 8.4 % (1.7-12.0); Neutrophils Percent Auto 73.3 % (43.0-75.0); Platelet Count 214 10^3/uL (150-450); Red Blood Count 5.03 10^6/uL (4.70-6.10); Red Cell Distribution Width 14.5 % (11.0-15.0); White Blood Count 9.6 10^3/uL (4.0-11.0)
[2023-11-29 18:06] LABS: Alanine Aminotransferase 27 U/L (16-63); Albumin Globulin Ratio 0.7; Albumin Level 3.5 g/dL (3.4-5.0); Alkaline Phosphatase 124 U/L (46-116); Anion Gap 13.3; Aspartate Amino Transferase 31 U/L (15-37); BUN Creatinine Ratio 25.5; Bilirubin Total 0.8 mg/dL (0.2-1.0); Calcium 9.7 mg/dL (8.5-10.1); Carbon Dioxide 29.4 mmol/L (21.0-32.0); Chloride 95 mmol/L (98-107); Estimated GFR (African America 30 (>=60); Estimated GFR (Non-African Ame 24 (>=60); Free T3 4.33 pg/mL (2.18-3.98); Free T4 0.97 ng/dL (0.76-1.46); Globulin 4.7 g/dL; Glucose 119 mg/dL (74-106); Potassium 3.7 mmol/L (3.5-5.1); Sodium 134 mmol/L (136-145); Thyroid Stimulating Hormone 0.545 uIU/mL (0.358-3.740); Total Protein 8.2 g/dL (6.4-8.2)
== END 2023-11-29 16:01 | disposition home or self-care (01) ==
LOC: LAB 16:03
PROVIDERS: PCP Family Medicine; Visit Provider Family Medicine
DX: Q75.2 Hypertelorism (principal)
CPT/HCPCS: 36415; 80053; 84436; 84439; 84443; 84481; 85025

== ENCOUNTER 2024-02-12 17:14 | Outpatient (OUT) | payer MEDICARE, OTHER, SELFPAY ==
--- NOTE | 2024-02-12 17:21 | XR_ITS ---
The [address] [address] Patient Name: LANDEN ROTH MRN: [id number] date: 1940 Sex: M Assigned Patient Location: [facility] Current Patient Location: RAD Accession/Order Number: [id number] Exam Date: 02/12/2024 17:28 Report Date: 02/12/2024 18:40 At the request of: FRANCISCA THOMPSON Procedure: XR chest 2V EXAM: XR chest 2V HISTORY: Heart failure I50.9 COMPARISON: 11/04/2023 TECHNIQUE: Upright PA and lateral chest x-ray FINDINGS: Heart is mildly enlarged with mild prominence of the central pulmonary vasculature. Multiple sternal wire sutures are present with a left-sided pacemaker. There is slight haziness at the left lung base suggesting a small effusion. Left upper and the right lung are clear and there is no other evidence of an effusion or pneumothorax. An infiltrate is not clearly identified. The osseous structures are grossly intact. XR/XR chest 2V IMPRESSION: Mild cardiac enlargement without overt cardiac decompensation. A small left pleural effusion is present. There is no evidence of a focal infiltrate, and the overall appearance of the chest is essentially unchanged. Electronically authenticated by: MARIA REBOLLEDO Date: 02/12/2024 18:40
--- OUTSIDE RECORDS SUMMARY | 2024-02-12 17:23 | XMS_ITS | CCD ---
Author Organization [facility] Care Team Providers Care Telepathist Name Role Phone Francisca Thompson MD Primary Care Provider [phone] Tom Gonzalez Unavailable SHARON HOOKS Referring Unavailable MARLENE KRISHNA Attending Unavailable NORMA ARORA Admitting Unavailable FRANCISCA THOMPSON Primary Care Unavailable Francisca Thompson MD Primary Care Provider [phone] Tom Gonzalez Unavailable [phone] Francisca Thompson MD Primary Care Provider [phone] FRANCISCA AYERS Primary Care Unavailable MALAIKA FAUST Consulting Unavailable MALAIKA FAUST Admitting Unavailable MALAIKA FAUST Attending Unavailable DONNA Qrueshi, DR ESPINOSA Primary [...] Del Cid MD Unavailable Tom Gonzalez Unavailable Andreas Del Cid MD Unavailable Virgil Carrillo MD Unavailable Francisca Thompson MD Primary Care Provider [phone] Efren Brady MD Unavailable RAMA MCKEON Admitting Unavailable CHAITANYA, JUAN PABLO DE LA ROSA Attending Unavailab le GANGWAJUAN PABLO FARRAR Consulting Unavailab le MIKE, RAMA Referring Unavailable MOUKARBEL, MALAIKA Attending Unavailable RENATEELMALAIKA Attending Unavailable JUAN PABLO TAVARES Referring Unavailab jakub MARTIN CHARU Referring Unavailable MICRBEL, MALAIKA Referring Unavailable MIKE, RAMA Referring Unavailable MIKE, RAMA Referring Unavailable BEKA YOUNG Attending Unavailable JASKARAN ALVAREZ Attending Unavailable VILMA PLATA Referring Unavailable RAJAT ZIMMER Attending Unavailable NICHOLE ALVAREZ Referring Unavailable SONJA HALL Referring Unavailable MOUKARBEL, MALAIKA Attending Unavailable HOY, FRANCISCA Referring Unavailable MIKE, RAMA Admitting Unavailable TROY ABDUL Attending Unavailable RICKY OBREGON Referring Unavailable Francisca Thompson MD Primary Care Provider [phone] Paulina Fernandes MD Unavailable HOY, FRANCISCA M Referring Unavailable HOY, [...] Unavailable HOY, FRANCISCA M Primary Care Unavailable EFREN BRADY Attending Unavailable RAMCHAND, VIRGIL Referring Unavailable HOY, FRANCISCA M Primary Care Unavailable HOY, FRANCISCA M Primary Care Unavailable ANDREAS DEL CID Referring Unavailable HOY, FRANCISCA M Referring Unavailable HOY, FRANCISCA M Primary Care Unavailable ANDREAS DEL CID Attending Unavailable Yung KIM Attending Unavailable HOY, FRANCISCA M Primary Care Unavailable HOY, FRANCISCA M Primary Care Unavailable HOY, FRANCISCA M Primary Care Unavailable HOY, FRANCISCA M Primary Care Unavailable HOY, FRANCISCA M Primary Care Unavailable HOY, FRANCISCA M Primary Care Unavailable HOY, FRANCISCA M Primary Care Unavailable HOY, FRANCISCA M Primary Care Unavailable TIARRA LOPEZ Referring Unavailable LOPEZTIARRA Referring Unavailable HOY, FRANCISCA M Primary Care Unavailable RAMCHAND, VIRGIL Attending Unavailable HOY, FRANCISCA M Primary Care Unavailable RAMCHAND, VIRGIL Referring Unavailable HOY, FRANCISCA M Primary Care Unavailable RAMCHAND, VIRGIL Referring Unavailable HOY, FRANCISCA M Primary Care Unavailable CARMELINA CARRASCO Attending Unavailable HOY, FRANCISCA M Primary Care Unavailable HOY, FRANCISCA M Primary Care Unavailable Yung KIM Attending Unavailable HOY, FRANCISCA M Primary Care Unavailable HOY, FRANCISCA M Primary Care Unavailable Paulina FERNANDES Attending Unavailable RAMCHAND, VIRGIL Referring Unavailable HOY, FRANCISCA M Primary Care Unavailable ANDREAS DEL CID Referring Unavailable HOY, FRANCISCA M Primary Care Unavailable ANDREAS DEL CID Referring Unavailable HOY, FRANCISCA M Primary Care Unavailable RAMCHAND, VIRGIL Referring Unavailable HOY, FRANCISCA M Primary Care Unavailable Paulina FERNANDES Referring Unavailable HOY, FRANCISCA M Primary Care Unavailable ALISON WELLER Attending Unavailable HOY, FRANCISCA M Primary Care Unavailable RAMCHAND, VIRGIL Referring Unavailable HOY, FRANCISCA M Primary Care Unavailable Allergies Allergy Classification Reported Allergen(s) Allergy Type Date of Onset Reaction(s) Facility Adhesive Tape (1 source) Adhesive Tape Substance Allergy 06-16-2012 Rash [facility] Work Phone: Latex (1 source) Latex Substance Allergy 03-13-2019 [facility] (20 sources) Adhesive Tape; Translations: [ADHESIVE TAPE (ROSINS)] Allergy to substance 06-16-2012 [facility] Work Phone: (20 sources) Latex; Translations: [LATEX] Drug Allergy 03-13-2019 [facility] (3 sources) Latex Drug allergy (disorder) 11-04-2013 [facility] Repository Medications Current Medications Medication Drug Class(es) Dates Sig (Normalized) Sig (Original) apixaban 5 mg oral tablet (9 sources) Factor Xa Inhibitor Start: 08-24-2021 End: 06-06-2022 take 1 tablet by mouth twice daily apixaban (ELIQUIS) 5 mg tablet Indications: Cerebrovascular accident (CVA) due to embolism of right middle cerebral artery (CMS-HCC) , Typical atrial flutter (CMS-HCC) Take 1 tablet (5 mg total) by mouth 2 (two) times a day. 60 tablet 6 08/24/2021 Active Comment on above: Take 5 mg by mouth. ascorbic acid 250 mg oral tablet (20 sources) Vitamin C take 1 tablet by mouth once daily ascorbic acid, vitamin C, (VITAMIN C) 250 mg tablet Take 250 mg by mouth daily. Unsure of strength 0 Active End: 10-25-2022 ascorbic acid (VITAMIN C ORA L) Take by mouth as needed. 0 10/25/2022 [...] tablet by mouth once daily. 0 Active aspirin 325 mg E C tablet Take 81 mg by mouth daily. Patient reports no longer taking. 0 Active Comment on above: Take 1 tablet by anuja th once daily. atorvastatin 40 mg oral tablet (20 sources) HMG-CoA Reductase Inhibitor Start: 02-19-20 take 1 tablet by mouth once daily at bedtime atorvastatin (LIPITOR) 40 mg tablet Take 40 mg by mouth daily at bedtime. 2 02/18/2019 Active Comment on above: Take 40 mg by mouth daily at bedtime. budesonide/formoterol fumarate (SYMBICORT INHALATION) (2 sources) budesonide/formo tero l fumarate (SYMBICORT INHALATION) Inhale 1 Inhalation as instructed two times a day. 0 Active cholecalciferol 0.025 mg oral capsule (20 sources) Vitamin D End: 10-25-19 23 Cholecalciferol, Vitamin D3, 25 mcg (1,000 unit) cap Take 1,000 Units by mouth as needed. 0 Active take 1 capsule by mouth once jarrell ly cholecalciferol, vitamin D3, (VITAMIN D3) 1,000 unit capsule Take 1,000 Units by mouth daily. 0 Active Comment on above: Take 1,000 [...] Take 10 mg by mouth once daily. furosemide 40 mg oral tablet (20 sources) Loop Diuretic Start: take 1 tablet by mouth twice daily, then take 1 tablet by mouth once daily, then take 1 tablet by mouth every other day in the evening furosemide (LASIX) 40 mg tablet Take 40 mg by mouth two times a day. 40mg daily additional 40mg every other day in evening 0 10/23/2023 Active Start: 10-23-2023 take 1 tablet by anuja once daily furosemide (LASIX) 40 mg tablet Take 40 mg by mouth once daily. 0 10/23/2023 Active Comment on above: Take 40 mg by mouth once daily. Take 40 mg by mouth two times a day. MAGNESIUM GLUCONATE (13 sources) take 160 mg by mouth once daily MAGNESIUM GLUCONATE ORAL Take 160 mg by mouth once daily. 0 Active Comment on above: Take 160 mg by mouth once daily. 24 hr metoprolol succinate 25 [...] once daily. Take 1 tablet by anuja once daily. nitroglycerin 0.4 mg sublingual tablet (20 sources) Nitrate Vasodilator nitroglyceri n sublingual (NITROQUICK) 0.4 mg SL tablet as directed. 0 Active Comment on above: as directed. perflutren lipid microspheres 1.3 mL in NaCl (PF) 0.9% 10 mL injection (DEFINITY) (20 sources) Start: 06-06-2022 End: 09-05-2023 perflutren lipid microspheres 1.3 mL in NaCl (PF) 0.9% 10 mL injection (DEFINITY) Start: 06-15-2021 End: 09-14-2022 perflutren lipid microsphere s 1.3 mL in NaCl (PF) 0.9% 10 mL injection (DEFINITY) microencapsulated potassium chloride 20 meq extended release oral tablet (1 source) Start: 02-07-2024 End: 08-05-2024 take 1 tablet by mouth once daily potassium chloride ER (KLOR-CON) 20 mEq tablet Take 1 tablet by mouth once daily. 30 tablet 5 02/07/2024 08/05/2024 Active sildenafil 100 mg oral tablet (5 sources) Phosphodiesterase 5 Inhibitor Start: 07-07-2021 sildenafiL (VIAGRA) 100 mg tablet 20 mg one daily PRN 30 tablet 2 07/07/2021 Active Start: 12-07-2019 sildenafil ( AGRA) 100 mg tablet Take 100 mg by mouth as needed. 0 12/07/2019 Active Comment on above: Take 100 mg by mouth as needed. spironolactone 25 mg oral tablet (20 sources) Aldosterone Antagonist Start: 11-25-2023 spironolactone (ALDACTONE) 25 mg tablet Take 12.5 mg by mouth every morning. 0 11/25/2023 Active Start: 06-01-2022 End: 04-26-2023 spironolactone (ALDACTONE) 2 5 mg tablet Take 12.5 mg by mouth once daily. 0 06/01/2022 04/26/2023 Discontinued (Discontinued by another Health Care Provider) Comment on above: Take 12.5 mg by mout h once daily. Take 12.5 mg by mout h every morning. thyroid (half-way) 15 mg oral tablet (20 sources) Start: 03-26-2023 SPECIAL SERVICE REPRESENTATIVE 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 0 03/26/2023 Active thyroid, pork, 6 0 mg tablet Take 75 mg by mouth once daily. 0 Active take 1 tablet by mouth once david y thyroid, pork, (ARMOUR THYROID) 90 mg tablet Take 90 mg by mouth daily. 0 Active take 1 tablet by mouth once david y thyroid, pork, 60 mg tablet Take 60 mg by mouth once daily. 0 Active Comment on above: Take 90 mg by mouth once daily. Take 60 mg by mouth once daily. Take 75 mg by mouth once daily. as directed. iatratd-zlkh-xgral-oreg- capryl 100 mg-150 mg- 50 mg-150 mg capsule (1 source) take 1 capsule by mouth once daily dynsfqk-ihmz-ahjii-oreg- capryl 100 mg-150 mg- 50 mg-150 mg capsule Take 1 capsule by mouth daily. 0 Active ubidecarenone 10 mg oral capsule (20 sources) take 1 capsule by mouth once daily ubidecarenone Q-10 (COENZYME Q-10) 10 mg cap Take 10 mg by mouth once daily. 0 Active coenzyme Q10 30 mg capsule Take 30 mg by mouth daily. 0 Active Comment on above: Take 10 mg by mouth once daily. zinc gluconate 50 mg oral tablet (1 source) take 1 tablet by mouth once daily zinc gluconate 50 mg tablet Take 50 mg by mouth daily. 0 Active Completed/Discontinued Medications Medication Drug Class(es) Dates Sig (Normalized) Sig (Original) acetaminophen 325 mg oral tablet (8 sources) Start: 07-03-2012 End: 06-06-2022 take 325-650 mg by mouth every four hours as needed acetaminophen 325 mg tablet Take 1-2 tablets by mouth every 4 hours as needed. 0 07/03/2012 06/06/2022 Discontinued Comment on above: Take 1-2 tablets by mouth every 4 hours as needed. bicalutamide 50 mg oral tablet (8 sources) Androgen Receptor Inhibitor Start: 11-30-2021 End: 06-06-2022 take 1 tablet by mouth once daily bicalutamide (CASODEX) 50 mg tablet Take 1 tablet by mouth once daily. 30 tablet 2 11/30/2021 06/06/2022 Discontinued Comment on above: Take 1 tablet by anuja th once daily. dapagliflozin 10 mg oral tablet (20 sources) Sodium-Glucose Cotransporter 2 Inhibitor Start: 05-23-2022 End: 12-03-2023 take 1 tablet by mouth once daily FARXIGA 10 mg tablet Take 1 tablet by mouth once daily. 90 tablet 3 12/03/2022 10/30/2023 Discontinued Comment on above: Take 10 mg by mouth once daily. Take 1 tablet by anuja th once daily. Take 10 mg by mouth daily with breakfast. ferrous sulfate 325 mg oral tablet (11 sources) Start: 05-15-2022 End: 10-02-2022 take 1 tablet by mouth once daily FEROSUL 325 mg (65 mg iron) tablet Take 1 tablet by mouth once daily. 0 05/15/2022 10/02/2022 Discontinued (Course of therapy completed) Start: 05-15-2022 take 1 tablet by anjua th twice daily FEROSUL 325 mg (65 mg iron) tablet Take 1 tablet by mouth twice daily. 0 05/15/2022 Active Comment on above: Take 1 tablet by anuja th twice daily. Take 1 tablet by anuja th once daily. lisinopril 5 mg oral tablet (20 sources) Angiotensin Converting Enzyme Inhibitor Start: 1 End: take 1 tablet by mouth once daily lisinopril (ZESTRIL) 5 mg tablet Take 1 tablet by mouth once daily. 90 tablet 3 08/23/2023 10/30/2023 Discontinued Comment on above: Take 1 tablet by anuja th daily at bedtime. Take 1 tablet by anuja th once daily. 125 ml sodium chloride 9 mg/ml prefilled syringe (20 sources) Start: 4 End: sodium chloride 0.9 % (flush) 10 mL (BD POSIFLUSH) Start: 06-15-2021 End: 09-05-2023 sodium chloride 0.9 % (flush ) 10 mL (BD POSIFLUSH) therapeutic multivitamin w/ iron (THERAGRAN-M) 27-0.4 mg tablet (18 sources) End: 10-29-2023 take 1 tablet by mouth once daily therapeutic multivitamin w/ iron (THERAGRAN-M) 27-0.4 mg tablet Take 1 tablet by mouth once daily. 0 10/29/2023 Discontinued (Discontinued by Patient) take 1 tablet by mouth once david y therapeutic multivitamin w/ iron (THERAGRAN- M) 27-0.4 mg tablet Take 1 tablet by mouth once daily. 0 Active Comment on above: Take 1 tablet by anuja th once daily. torsemide 10 mg oral tablet (20 sources) Loop Diuretic Start: 07-19-2022 End: 10-29-2023 take 1 tablet by mouth once daily torsemide (DEMADEX) 10 mg tablet Take 1 tablet by mouth once daily. 90 tablet 3 07/19/2022 10/29/2023 Discontinued (Discontinued by another Health Care Provider) Start: 03-13-2019 End: 06-06-2022 take 1 tablet by mouth [...] mouth. Take by mouth as nee ded. Zinc (20 sources) End: 10-25-2022 ZINC ORAL Take by mouth. 0 10/25/2022 Discontinued (Course of therapy completed) ZINC ORAL Take b y mouth. 0 Active Comment on above: Take by mouth. Problems Active Problems Problem Classification Problem Date Documented Date Episodic/Chronic Acute cerebrovascular disease (20 sources) Cerebrovascular accident; Translations: [Other cerebral infarction] Onset: 08-18-2021 Chronic Cardiac dysrhythmias (20 sources) Atrial fibrillation and flutter ; Translations: [Atrial fib/flutter, transient] Onset: 05-03-2012 08-24-2021 Chronic Chronic kidney disease (9 sources) Chronic kidney disease, unspecified; Translations: [Chronic kidney disease stage 3B ] Onset: 05-18-2022 01-10-2024 Chronic Chronic kidney disease (3 sources) Chronic kidney disease; Translations: [Chronic kidney disease, stage 3 unspecified] Onset: 10-10-2023 Complication of device; implant or graft (20 sources) Arteriosclerosis of coronary artery bypass graft; Translations: [Atherosclerosis of coronary artery bypass graft(s) without angina pectoris] Onset: 11-17-2012 Chronic Conduction disorders (3 sources) Presence of automatic (implantable) cardiac defibrillator; Translations: [PRESENCE AUTO IMPLANT CARDIAC DEFIB] Onset: 07-10-2022 Chronic Congestive heart failure; nonhypertensive (20 sources) Acute systolic heart failure; Translations: [Acute systolic (congestive) heart failure] Onset: 05-01-2012 Chronic Coronary atherosclerosis and other heart disease (20 sources) Coronary atherosclerosis; Translations: [Atherosclerotic heart disease of [place] coronary artery without angina pectoris] Onset: 04-28-2012 09-11-2021 Chronic Diabetes mellitus with complications (20 sources) Type 2 diabetes mellitus; Translations: [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 kidney disease] Onset: 04-26-2023 04-26-2023 Chronic Disorders of lipid metabolism (20 sources) Hyperlipidemia; Translations: [Hyperlipidemia, unspecified] Onset: 04-28-2012 Chronic Esophageal disorders (1 source) Gastro-esophageal reflux disease without esophagitis; Translations: [GERD WITHOUT ESOPHAGITIS] Onset: 05-18-2022 Chronic Essential hypertension (5 sources) Essential hypertension; Translations: [Essential (primary) hypertension] Onset: 10-23-2023 10-30-2023 Chronic Heart valve disorders (10 sources) Mitral valve regurgitation; Translations: [Nonrheumatic mitral (valve) insufficiency] Onset: 12-02-2023 Chronic Hypertension with complications and secondary hypertension (7 sources) Hypertensive heart disease with heart failure; Translations: [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 disease, or unspecified chronic kidney disease] Onset: 06-27-2022 Chronic Nutritional deficiencies (16 sources) Deficiency of macronutrients; Translations: [Unspecified severe protein-calorie malnutrition] Onset: 12-26-2023 12-26-2023 Chronic Occlusion or stenosis of precerebral arteries (20 sources) Carotid artery stenosis; Translations: [Occlusion and stenosis of unspecified carotid artery] Onset: 05-01-2012 09-11-2021 Chronic Other circulatory disease (3 sources) Personal history of transient ischemic attack (TIA), and cerebral infarction without residual deficits; Translations: [PERS HX TIA AND CI NO RESID DEFICIT] Onset: 07-10-2022 Episodic Other lower respiratory disease (3 sources) Dyspnea; Translations: [Shortness of breath] Onset: 02-07-2024 12-12-2023 Episodic Other lower respiratory disease (1 source) Dyspnea on exertion; Translations: [Other forms of dyspnea] 02-04-2024 Episodic Other lower respiratory disease (1 source) Other forms of dyspnea; Translations: [SANTILLAN (dyspnea on exertion)] Onset: 02-05-2024 Episodic Other lower respiratory disease (2 sources) Shortness of breath; Translations: [Shortness of breath] Onset: 12-12-2023 Episodic Other male genital disorders (1 source) Erectile dysfunction co-occurrent and due to arterial insufficiency; Translations: [Erectile dysfunction due to arterial insufficiency] Onset: 09-28-2019 10-12-2019 Chronic Other screening for suspected conditions (not mental disorders or infectious disease) (1 source) Blood chemistry abnormal; Translations: [Abnormal finding of blood chemistry, unspecified] Episodic Other upper respiratory infections (2 sources) Sore throat symptom; Translations: [Acute pharyngitis, unspecified] Onset: 12-26-2023 12-26-2023 Episodic Adelina-; endo-; and myocarditis; cardiomyopathy (except that caused by tuberculosis or sexually transmitted disease) (2 sources) Cardiomyopathy; Translations: [Other cardiomyopathies] Onset: 01-10-2024 01-10-2024 Chronic Peripheral and visceral atherosclerosis (20 sources) Peripheral [...] Other Problems Problem Classification Problem Date Documented Date Episodic/Chronic Acute and unspecified renal failure (3 sources) Acute kidney failure, unspecified; Translations: [ACUTE KIDNEY FAILURE UNSPECIFIED] Onset: 06-28-2022 Episodic Acute myocardial infarction (9 sources) Non-ST elevation (NSTEMI) myocardial infarction; Translations: [True posterior myocardial infarction] Onset: 04-28-2012 Resolved: 05-05-2012 Chronic Cancer of prostate (20 sources) Malignant tumor of prostate; Translations: [Malignant neoplasm of prostate] Onset: 10-09-2017 Resolved: 10-01-2023 Chronic Cardiac dysrhythmias (7 sources) Tachycardia; Translations: [Tachycardia, unspecified] Onset: 04-28-2012 Resolved: 05-05-2012 Episodic Coagulation and hemorrhagic disorders (7 sources) Thrombocytopenic disorder; Translations: [Thrombocytopenia, unspecified] Onset: 05-01-2012 Resolved: 05-05-2012 Chronic Coronary atherosclerosis and other heart disease (6 sources) Presence of aortocoronary bypass graft; Translations: [Presence of coronary angioplasty implant and graft] Onset: 06-17-2012 Episodic Deficiency and other anemia (4 sources) Anemia, unspecified; Translations: [ANEMIA UNSPECIFIED] Onset: 05-14-2022 Episodic Diabetes mellitus without complication (7 sources) Metabolic stress hyperglycemia; Translations: [Hyperglycemia, unspecified] Onset: 05-01-2012 Resolved: 05-06-2012 Episodic Fluid and electrolyte disorders (1 source) Dehydration; Translations: [DEHYDRATION] Onset: 05-18-2022 Episodic Malaise and fatigue (8 sources) Other fatigue; Translations: [Weakness] Onset: 05-15-2022 Episodic Mood disorders (1 source) Mood disorders Onset: 08-17-2021 08-17-2021 Other aftercare (1 source) Other superintendent container terminal (current) drug therapy; Translations: [OTH AGENT BROKER CURRENT DRUG THERAPY] Onset: 05-18-2022 Episodic Other aftercare (1 source) prison (current) use of anticoagulants; Translations: [AGENT BROKER CURRNT USE ANTICOAGULANTS] Onset: 05-18-2022 Episodic Other circulatory disease (7 sources) Low blood pressure; Translations: [Hypotension, unspecified] Onset: 05-01-2012 Resolved: 05-03-2012 Episodic Other hematologic conditions (1 source) Other specified abnormalities of plasma proteins; Translations: [OTH SPEC ABNORM PLASMA PROTEINS] Onset: 05-18-2022 Episodic Other nervous system disorders (7 sources) Postoperative pain ; Translations: [Other acute postprocedural pain] Onset: 05-01-2012 Resolved: 05-06-2012 Episodic Respiratory failure; insufficiency; arrest (adult) (7 sources) Ventilator finding; Translations: [Dependence on respirator [ventilator] status] Onset: 05-01-2012 Resolved: 05-02-2012 Chronic Screening and history of mental health and substance abuse codes (1 source) Personal history of nicotine dependence; Translations: [PERSONAL HISTORY OF NICOTINE DEPEND] Onset: 05-18-2022 Episodic Syncope (20 sources) Syncope; Translations: [Syncope and collapse] Onset: 03-18-2019 03-18-2019 Episodic Results Test Name Value Interpretation Reference Range Facility [facility] JOSÉ MIGUEL ROTH JR. ([id number]) 1940 M Date Time Provider Department 02/11/24 RESEARCH NURSE CARD INTERVENTION [facility] During your visit today, we recorded the following information about you: Darwin Richey 02/11/2024 12:26 PM Signed Study name: EMPOWER Trial IRB# [id number] PI: Andrés Savage Pt's gfr dropped--spoke to Dr. Fernandes. Plan for med changes with f/u labs this Saturday. Spoke with pt's daughter. Plan to pause trial enrollment as he doesn't fit with this gfr. Will reassess after labs. Also informed that clinical team is re-reviewing imaging for clips. Plastics Fitter: Darwin Richey Pager #: [phone] Allergies As of Date: 02/11/2024 Noted Allergy Reaction LATEX 03/13/2019 2 - Rash ADHESIVE TAPE (ROSINS) 06/16/2012 2 - Rash Date Reviewed: 01/10/2024 Reviewed by: Mirna Tam, ARIES - Fully Assessed Prescriptions as of 02/11/2024 - potassium chloride ER (KLOR-CON) 20 mEq tablet Take 1 tablet by mouth once daily. - budesonide/formoterol fumarate (SYMBICORT INHALATION) Inhale 1 Inhalation as instructed two times a day. - MAGNESIUM GLUCONATE ORAL Take 160 mg by mouth once daily. - dapagliflozin propanediol (FARXIGA) 10 mg tablet Take 10 mg by mouth daily with breakfast. - furosemide (LASIX) 40 mg tablet Take 40 mg by mouth two times a day. 40mg daily additional 40mg every other day in evening - Cholecalciferol, Vitamin D3, 25 mcg (1,000 unit) cap Take 1,000 Units by mouth as needed. - nitroglycerin sublingual (NITROQUICK) 0.4 mg SL tablet as directed. - SPECIAL SERVICE REPRESENTATIVE 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 - aspirin, enteric coated (ASPIRIN, ENTERIC COATED) 81 mg EC tablet Take 1 tablet by mouth once daily. - ezetimibe (ZETIA) 10 mg tablet Take 10 mg by mouth once daily. - ubidecarenone Q-10 (COENZYME Q-10) 10 mg cap Take 10 mg by mouth once daily. - thyroid, pork, 60 mg tablet Take 75 mg by mouth once daily. - atorvastatin (LIPITOR) 40 mg tablet Take 40 mg by mouth daily at bedtime. Meds Comments as of 08/04/2012: Medications verbally confirmed. Guy Fair LPN August 04, 2012 Problem List As Of Date 02/11/[address] elevation myocardial infarction (STEMI) of t*04/28/2012 05/05/2012 Atherosclerotic heart disease of [place] coronar* SUMMARY [V999.95] 04/28/2012 Wide-complex tachycardia [R00.0] [...] (coronary artery bypass graft) [Z95.1] 06/17/2012 Sweating [[id number]] 11/17/2012 CAD (coronary artery disease) of artery bypass *11/17/2012 Systolic heart failure (HCC) [I50.20] 11/17/2012 PVD (peripheral vascular disease) ([facility]) [I73.9] 11/17/2012 Prostate cancer ([facility]) [C61] 10/09/2017 10/01/2023 Syncope [R55] 03/18/2019 Stroke (cerebrum) ([facility]) [I63.9] 09/03/2022 Chronic combined systolic and diastolic congest*09/03/2022 Carotid stenosis, asymptomatic, bilateral [I65.*09/03/2022 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 *04/26/2023 Unspecified severe protein-calorie malnutrition*12/26/2023 Stage 3b chronic kidney disease ([facility]) [N18.32] 01/10/2024 Dyspnea, unspecified [R06.00] 02/07/2024 Non-rheumatic mitral regurgitation [I34.0] 02/07/2024 Encounter Status:Closed by DARWIN RICHEY on 02/11/24 Normal [facility] Basic metabolic 2000 panelon 02-05-2024 Anion gap [Moles/Vol] 16 mmol/L 9 - 18 mmol/L [facility] Calcium [Mass/Vol] 9.6 mg/dL 8.5 - 10. 2 mg/dL [facility] Chloride [Moles/Vol] 95 mmol/L Low 97 - 105 mmol/L [facility] CO2 [Moles/Vol] 24 mmol/L 22 - 30 mmol/L [facility] Creatinine [Mass/Vol] 2.50 mg/dL High 0.73 - 1.22 mg/dL [facility] GFR/1.73 sq M.predicted among non-blacks MDRD (S/P/Bld) [Vol rate/Area] 25 mL/min/{1.73_m2} Low - PINF [facility] Comment on above: Estimated Glomerular Filtration Rate (eGFR) is calculated using the 2020 CKD-EPI creatinine equation. This equation utilizes serum creatinine, sex, and age as parameters. The creatinine assay has traceable calibration to isotope dilution-mass spectrometry. Refer to KDIGO guidelines for clinical interpretation. In patients with unstable renal function, e.g. those with acute kidney injury, the eGFR may not accurately reflect actual GFR. Glucose [Mass/Vol] 103 mg/dL High 74 - 99 mg/dL [facility] Comment on above: The [place] Diab[employer] s Association (ADA) provides guidance for cutoff values [...] Standards of Medical Care in Diabetes 2016, [place] [employer]. Diabetes Care. 2016.39(Suppl 1). Potassium [Moles/Vol] 3.5 mmol/L Low 3.7 - 5.1 mmol/L [facility] Sodium [Moles/Vol] 135 mmol/L Low 136 - 144 mmol/L [facility] Urea nitrogen [Mass/Vol] 43 mg/dL High 9 - 24 mg/dL [facility] Anion gap [Moles/Vol] 16 mmol/L Normal 9-18 [facility] Comment on above: Order Comment: Speci men Type: BLOOD SPECIMENOrdering Facility: [facility] [place] Address: [address] [place], [place] [address] [address] Performed By: #### 2 4321-2, 61683-6 ####[facility] LABCLIA [id number] [facility] [place] [address] [place] Calcium [Mass/Vol] 9.6 mg/dL Normal 8.5-10.2 [facility] Comment on above: Order Comment: Speci men Type: BLOOD SPECIMENOrdering Facility: [facility] [place] Address: [address] [place] [address] Performed By: #### 2 4321-2, 98494-6 ####[facility] LABCLIA [id number] [facility] [place] [address] [place] Chloride [Moles/Vol] 95 mmol/L Low 97-105 [facility] Comment on above: Order Comment: Speci men Type: BLOOD SPECIMENOrdering Facility: [facility] [place] Address: [address] [place] [address] Performed By: #### 2 4321-2, 05237-2 ####[facility] LABCLIA [id number] [place] [address] [place] CO2 [Moles/Vol] 24 mmol/L Normal 22-30 [facility] Comment on above: Order Comment: Speci men Type: BLOOD SPECIMENOrdering Facility: [facility] [place] Address: [address] [place] [address] Performed By: #### 2 4321-2, 52634-0 ####[facility] LABCLIA [id number] [place] [address] [place] Creatinine [Mass/Vol] 2.50 mg/dL High 0.73-1.22 [facility] Comment on above: Order Comment: Speci men Type: BLOOD SPECIMENOrdering Facility: [facility] [place] Address: [address] [place] [address] Performed By: #### 2 4321-2, 84486-5 ####[facility] LABCLIA [id number] [place] [address] [place] Creatinine and Glomerular filtration rate.predicted panel (S/P/Bld) 25 mL/min/1.73m??? Low >=60 [facility] Comment on above: Order Comment: Speci men Type: BLOOD SPECIMENOrdering Facility: [facility] [place] Address: [address] [place] [address] Result Comment: Etta mated Glomerular Filtration Rate [...] reflect actual GFR. Performed By: #### 2 4321-2, 73902-5 ####[facility] LABIA [id number] [place] [address] [place] Glucose [Mass/Vol] 103 mg/dL High 74-99 [facility] Comment on above: Order Comment: Dylan olvera Type: BLOOD SPECIMENOrdering Facility: [facility] [place] Address: [address] [place] [address] Result Comment: The [place] Diabetes Association (ADA) provides guidance for cutoff [...] Standards of Medical Care in Diabetes 2016, [place] [employer]. Diabetes Care. 2016.39(Suppl 1). Performed By: #### 2 4321-2, 04121-2 ####[facility] LABIA [id number] [place] [id number] [place] Potassium [Moles/Vol] 3.5 mmol/L Low 3.7-5.1 [facility] Comment on above: Order Comment: Dylan [facility] Type: BLOOD SPECIMENOrdering Facility: [facility] [place] Address: [address] [place] [address] Performed By: #### 2 4321-2, 68510-2 ####[facility] LABCLIA [id number] [place] [address] [place] Sodium [Moles/Vol] 135 mmol/L Low 136-144 [facility] Comment on above: Order Comment: Speci men Type: BLOOD SPECIMENOrdering Facility: [facility] [place] Address: [address] [place] [address] Performed By: #### 2 4321-2, 76497-0 ####[facility] LABCLIA [id number] [place] [address] [place] Urea nitrogen [Mass/Vol] 43 mg/dL High 9-24 [facility] Comment on above: Order Comment: Speci men Type: BLOOD SPECIMENOrdering Facility: [facility] [place] Address: [address] [place] [address] Performed By: #### 2 4321-2, 50652-0 ####[facility] LABCLIA [id number] [place] [address] [place] CBC W Auto Differential pane l (Bld)on 02-05-2024 Basophils (Bld) [#/Vol] 0.04 10*3/uL Normal <0.11 [facility] Comment on above: Order Comment: Speci men Type: BLOOD SPECIMENOrdering Facility: [facility] [place] Address: [address] [place] [address] Performed By: #### 5 7021-8 ####[facility] LABCLIA [id number] [place] [address] [place] Basophils/100 WBC (Bld) 0.5 % Normal [facility] Comment on above: Order Comment: Speci men Type: BLOOD SPECIMENOrdering Facility: [facility] [place] Address: [address] [place] [address] Performed By: #### 5 7021-8 ####[facility] LABCLIA [id number] [place] [address] [place] Differential cell count method Nom (Bld) Auto Normal [facility] Comment on above: Order Comment: Speci men Type: BLOOD SPECIMENOrdering Facility: [facility] [place] Address: [address] [place] [address] Performed By: #### 5 7021-8 ####[facility] LABCLIA [id number] [place] [address] [place] Eosinophils (Bld) [#/Vol] 0.41 10*3/uL Normal <0.46 [facility] Comment on above: Order Comment: Speci men Type: BLOOD SPECIMENOrdering Facility: [facility] [place] Address: [address] [place] [address] Performed By: #### 5 7021-8 ####[facility] LABCLIA [id number] [place] [address] [place] Eosinophils/100 WBC (Bld) 5.5 % Normal [facility] Comment on above: Order Comment: Speci men Type: BLOOD SPECIMENOrdering Facility: [facility] [place] Address: [address] [place] [address] Performed By: #### 5 7021-8 ####[facility] LABCLIA [id number] [place] [address] [place] Erythrocyte distribution width (RBC) [Ratio] 16.2 % High 11.5-15.0 [facility] Comment on above: Order Comment: Speci men Type: BLOOD SPECIMENOrdering Facility: [facility] [place] Address: [address] [place] [address] Performed By: #### 5 7021-8 ####[facility] LABCLIA [id number] [place] [address] [place] Hematocrit (Bld) [Volume fraction] 40.2 % Normal 39.0-51.0 [facility] Comment on above: Order Comment: Speci men Type: BLOOD SPECIMENOrdering Facility: [facility] [place] Address: [address] [place] [address] Performed By: #### 5 7021-8 ####[facility] LABCLIA [id number] [place] [address] [place] Hemoglobin (Bld) [Mass/Vol] 12.4 g/dL Low 13.0-17.0 [facility] Comment on above: Order Comment: Speci men Type: BLOOD SPECIMENOrdering Facility: [facility] [place] Address: [address] [place] [address] Performed By: #### 5 7021-8 ####[facility] LABCLIA [id number] [place] [address] [place] Immature granulocytes (Bld) [#/Vol] 0.04 10*3/uL Normal <0.10 [facility] Comment on above: Order Comment: Speci men Type: BLOOD SPECIMENOrdering Facility: [facility] [place] Address: [address] [place] [address] Performed By: #### 5 7021-8 ####[facility] LABIA [id number] [place] [address] [place] Immature granulocytes/100 WBC (Bld) 0.5 % Normal [facility] Comment on above: Order Comment: Speci men Type: BLOOD SPECIMENOrdering Facility: [facility] [place] Address: [address] [place] [address] Performed By: #### 5 7021-8 ####[facility] LABCLIA [id number] [place] [address] [place] Lymphocytes (Bld) [#/Vol] 1.20 10*3/uL Normal 1.00-4.00 [facility] Comment on above: Order Comment: Speci men Type: BLOOD SPECIMENOrdering Facility: [facility] [place] Address: [address] [place] [address] Performed By: #### 5 7021-8 ####[facility] LABCLIA [id number] [place] [address] [place] Lymphocytes/100 WBC (Bld) 16.0 % Normal [facility] Comment on above: Order Comment: Speci men Type: BLOOD SPECIMENOrdering Facility: [facility] [place] Address: [address] [place] [address] Performed By: #### 5 7021-8 ####[facility] LABCLIA [id number] [place] [address] [place] MCH (RBC) [Entitic mass] 27.0 pg Normal 26.0-34.0 [facility] Comment on above: Order Comment: Speci men Type: BLOOD SPECIMENOrdering Facility: [facility] [place] Address: [address] [place] [address] Performed By: #### 5 7021-8 ####[facility] LABIA [id number] [place] [address] [place] MCHC (RBC) [Mass/Vol] 30.8 g/dL Normal 30.5-36.0 [facility] Comment on above: Order Comment: Speci men Type: BLOOD SPECIMENOrdering Facility: [facility] [place] Address: [address] [place] [address] Performed By: #### 5 7021-8 ####[facility] LABIA [id number] [place] [address] [place] MCV (RBC) [Entitic vol] 87.6 fL Normal 80.0-100.0 [facility] Comment on above: Order Comment: Speci men Type: BLOOD SPECIMENOrdering Facility: [facility] [place] Address: [address] [place] [address] Performed By: #### 5 7021-8 ####[facility] LABCLIA [id number] [place] [address] [place] Monocytes (Bld) [#/Vol] 0.82 10*3/uL Normal <0.87 [facility] Comment on above: Order Comment: Speci men Type: BLOOD SPECIMENOrdering Facility: [facility] [place] Address: [address] [place] [address] Performed By: #### 5 7021-8 ####[facility] LABCLIA [id number] [place] [address] [place] Monocytes/100 WBC (Bld) 10.9 % Normal [facility] Comment on above: Order Comment: Speci men Type: BLOOD SPECIMENOrdering Facility: [facility] [place] Address: [address] [place] [address] Performed By: #### 5 7021-8 ####[facility] LABCLIA [id number] [place] [address] [place] Neutrophils (Bld) [#/Vol] 5.00 10*3/uL Normal 1.45-7.50 [facility] Comment on above: Order Comment: Speci men Type: BLOOD SPECIMENOrdering Facility: [facility] [place] Address: [address] [place] [address] Performed By: #### 5 7021-8 ####[facility] LABCLIA [id number] [place] [address] [place] Neutrophils/100 WBC (Bld) 66.6 % Normal [facility] Comment on above: Order Comment: Speci men Type: BLOOD SPECIMENOrdering Facility: [facility] [place] Address: [address] [place] [address] Performed By: #### 5 7021-8 ####[facility] LABCLIA [id number] [place] [address] [place] Nucleated RBC (Bld) [#/Vol] 10*3/uL Normal <0.01 [facility] Comment on above: Order Comment: Speci men Type: BLOOD SPECIMENOrdering Facility: [facility] [place] Address: [address] [place] [address] Performed By: #### 5 7021-8 ####[facility] LABCLIA [id number] [place] [address] [place] Nucleated RBC/100 WBC (Bld) [Ratio] 0.0 /100 WBC Normal [facility] Comment on above: Order Comment: Speci men Type: BLOOD SPECIMENOrdering Facility: [facility] [place] Address: [address] [place] [address] Performed By: #### 5 7021-8 ####[facility] LABIA [id number] [place] [address] [place] Platelet mean volume (Bld) [Entitic vol] 10.4 fL Normal 9.0-12.7 [facility] Comment on above: Order Comment: Speci men Type: BLOOD SPECIMENOrdering Facility: [facility] [place] Address: [address] [place] [address] Performed By: #### 5 7021-8 ####[facility] LABIA [id number] [place] [address] [place] Platelets (Bld) [#/Vol] 224 10*3/uL Normal 150-400 [facility] Comment on above: Order Comment: Speci men Type: BLOOD SPECIMENOrdering Facility: [facility] [place] Address: [address] [place] [address] Performed By: #### 5 7021-8 ####[facility] LABIA [id number] [place] [address] [place] RBC (Bld) [#/Vol] 4.59 10*6/uL Normal 4.20-6.00 [facility] Comment on above: Order Comment: Speci men Type: BLOOD SPECIMENOrdering Facility: [facility] [place] Address: [address] [place] [address] Performed By: #### 5 7021-8 ####[facility] LABCLIA [id number] [place] [address] [place] WBC (Bld) [#/Vol] 7.51 10*3/uL Normal 3.70-11.00 [facility] Comment on above: Order Comment: Speci men Type: BLOOD SPECIMENOrdering Facility: [facility] [place] Address: [address] [place] [address] Performed By: #### 5 7021-8 ####[facility] LABCLIA [id number] [place] [address] [place] Basophils (Bld) [#/Vol] 0.04 10*3/uL [facility] Basophils/100 WBC (Bld) 0.5 % [facility] Differential cell count method Nom (Bld) Auto [facility] Eosinophils (Bld) [#/Vol] 0.41 10*3/uL [facility] Eosinophils/100 WBC (Bld) 5.5 % [facility] Erythrocyte distribution width (RBC) [Ratio] 16.2 % High 11.5 - 15.0 % [facility] Hematocrit (Bld) [Volume fraction] 40.2 % 39.0 - 51.0 % [facility] Hemoglobin (Bld) [Mass/Vol] 12.4 g/dL Low 13.0 - 17.0 g/dL [facility] Immature granulocytes (Bld) [#/Vol] 0.04 10*3/uL [facility] Immature granulocytes/100 WBC (Bld) 0.5 % [facility] Interpretation and review of laboratory results Abnormal [facility] Lymphocytes (Bld) [#/Vol] 1.20 10*3/uL [facility] Lymphocytes/100 WBC (Bld) 16.0 % [facility] MCH (RBC) [Entitic mass] 27.0 pg 26.0 - 34.0 pg [facility] MCHC (RBC) [Mass/Vol] 30.8 g/dL 30.5 - 36.0 g/dL [facility] MCV (RBC) [Entitic vol] 87.6 fL 80.0 - 100.0 fL [facility] Monocytes (Bld) [#/Vol] 0.82 10*3/uL [facility] Monocytes/100 WBC (Bld) 10.9 % [facility] Neutrophils (Bld) [#/Vol] 5.00 10*3/uL [facility] Neutrophils/100 WBC (Bld) 66.6 % [facility] Nucleated RBC (Bld) [#/Vol] NINF [facility] Nucleated RBC/100 WBC (Bld) [Ratio] 0.0 % /100 WBC [facility] Platelet mean volume (Bld) [Entitic vol] 10.4 fL 9.0 - 12.7 fL [facility] Platelets (Bld) [#/Vol] 224 10*3/uL [facility] RBC (Bld) [#/Vol] 4.59 10*6/uL 4.20 - 6.0 0 m/uL [facility] WBC (Bld) [#/Vol] 7.51 10*3/uL [facility] CNNURSEon 02-05-2024 CNNURSE Nurse Visit (CATHMN) JOSÉ MIGUEL ROTH JR. ([id number]) 1940 M Date Time Provider Department 02/05/24 2:00 PM RESEARCH NURSE CARD INTERVENTION MNCATHMN During your visit today, we recorded the following information about you: Berta Barry 02/05/2024 3:49 PM Signed Study name: EMPOWER Trial IRB# [id number] PI: Andrés Savage Study Visit: Screening (Not More than 60 Days Prior to Randomization) I met with the patient for the Screening visit for the EMPOWER Trial. Reaffirmed that the patient still wishes to participate in the study and continues to consent to the study. Has the patient had any changes in his health since the last study visit? No Medications and allergy lists updated and current. Yes Has the patient had any outside hospitalizations/ER visits since informed consent: No The following assessments were performed per protocol by a blinded multi township assessor: Berta Barry NYHA completed: Yes KCCQ-12 questionnaire completed: Yes SF- 12 questionnaire completed: Yes 6 minute walk test completed: Yes Discussed with the patient the importance of follow up in the study. He verbalized understanding. Next study visit will be no more than 3 days prior to randomization and patient will be notified. Patient contact information reaffirmed and updated. Coordinator contact information provided to the patient. Education provided:Protocol required tests/procedures and Follow up requirements/schedule Materials dispensed: Coordinator Contact Card Plastics Fitter: Berta Barry [phone] Allergies As of Date: 02/05/2024 Noted Allergy Reaction LATEX 03/13/2019 2 - Rash ADHESIVE TAPE (ROSINS) 06/16/2012 2 - Rash Date Reviewed: 01/10/2024 Reviewed by: Mirna Tam RN - Fully Assessed Reason for Visit: Research [293] Cmt: IRB 18-600 Empower Assessment of the CARILLON Mitral Contour System in Treating Functional Mitral Regurgitation Associated with Heart Failure PI: Hussein Primary Visit Diagnosis:EMPOWER Trial IRB# 18-600 Screening visit [Z00.6] Comment:EMPOWER Trial IRB# 18-600 Prescriptions as of 02/05/2024 - budesonide/formoterol fumarate (SYMBICORT INHALATION) Inhale 1 Inhalation as instructed two times a day. - MAGNESIUM GLUCONATE ORAL Take 160 mg by mouth once daily. - spironolactone (ALDACTONE) 25 mg tablet Take 12.5 mg by mouth every morning. - dapagliflozin propanediol (FARXIGA) 10 mg tablet Take 10 mg by mouth daily with breakfast. - furosemide (LASIX) 40 mg tablet Take 40 mg by mouth two times a day. 40mg daily additional 40mg every other day in evening - Cholecalciferol, Vitamin D3, 25 mcg (1,000 unit) cap Take 1,000 Units by mouth as needed. - nitroglycerin sublingual (NITROQUICK) 0.4 mg SL tablet as directed. - SPECIAL SERVICE REPRESENTATIVE 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 - aspirin, enteric coated (ASPIRIN, ENTERIC COATED) [...] 40 mg by mouth daily at bedtime. Meds Comments as of 08/04/2012: Medications verbally confirmed. Guy Fair LPN August 04, 2012 Problem List As Of Date 02/05/[address] elevation myocardial infarction (STEMI) of t*04/28/2012 05/05/2012 Atherosclerotic heart disease of [place] coronar* SUMMARY [V999.95] 04/28/2012 Wide-complex tachycardia [R00.0] [...] (coronary artery bypass graft) [Z95.1] 06/17/2012 Sweating [WOH9275] 11/17/2012 CAD (coronary artery disease) of artery bypass *11/17/2012 Systolic heart failure (HCC) [I50.20] 11/17/2012 PVD (peripheral vascular disease) ([facility]) [I73.9] 11/17/2012 Prostate cancer ([facility]) [C61] 10/09/2017 10/01/2023 Syncope [R55] 03/18/2019 Stroke (cerebrum) ([facility]) [I63.9] 09/03/2022 Chronic combined systolic and diastolic congest*09/03/2022 Carotid stenosis, asymptomatic, bilateral [I65.*09/03/2022 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 Normal [facility] ECG COMPLETEon 05-22-2024 ECG COMPLETE Ventricular Rate : 7 2 BPM Atrial Rate : 75 BPM P-R Interval : 156 ms QRS Duration : 90 ms Q-T Interval : 436 ms QTC Calculation(Bazett) : 477 ms Calculated P Concan : 256 degrees Calculated R Concan : -11 degrees Calculated T Concan : 139 degrees UNUSUAL P AXIS, POSSIBLE ECTOPIC ATRIAL RHYTHM WITH OCCASIONAL PREMATURE VENTRICULAR COMPLEXES MINIMAL VOLTAGE CRITERIA FOR LVH, MAY BE NORMAL VARIANT ( Robert product ) ST & LATERAL T WAVE ABNORMALITY PROLONGED QT INTERVAL OR TU FUSION, CONSIDER HYPOKALEMIA ABNORMAL ECG Confirmed by ABHILASH MARTÍNEZ MD ([id number]) on 02/11/2024 8:22:21 AM NAME : JOSÉ MIGUEL ROTH PID : [id number] : 1940 Gender : Male Race : ORD : [id number] Procedure Date : Feb 05 2024 13:55:10 Edit Date : Feb 11 2024 08:22:25 Diagnosis: UNUSUAL P AXIS, POSSIBLE ECTOPIC ATRIAL RHYTHM WITH OCCASIONAL PREMATURE VENTRICULAR COMPLEXES MINIMAL VOLTAGE CRITERIA FOR LVH, MAY BE NORMAL VARIANT ( Leander product ) ST & LATERAL T WAVE ABNORMALITY PROLONGED QT INTERVAL OR TU FUSION, CONSIDER HYPOKALEMIA ABNORMAL ECG Confirmed by ABHILASH MARTÍNEZ MD ([id number]) on 02/11/2024 8:22:21 AM Test Reason : Location : 314 : [facility] J14 Overread By : ABHILASH MARTÍNEZ MD Edited By : ABHILASH MARTÍNEZ MD Referred By : , Acquired by : JULIA BARBER [facility] ECHOon 02-05-2024 Echocardiography Echocardiography Rep ort: Transthoracic Echo [facility] J Date of service: 02/05/2024 3:52:18 PM PAD MECH[employer]IC Ordering physician: CARMELINA CARRASCO Indication: Mitral regurgitation Technologist: Edith Delgadillo [facility] Interpreting physician: Marizol Reyes MD PATIENT: Name: MR. JOSÉ MIGUEL ROTH JR. : 1940 Age: 83 years Gender: M History of coronary artery disease, myocardial infarction, chronic kidney disease, dyslipidemia and hypertension. Previous cardiovascular interventions: CABG (2011) Dual chamber PPM-ICD (03/24/2019) Primary rhythm: sinus. Secondary rhythm: PVC. Height: 182.90 cm BSA: 1.96 m Weight: 75.30 kg BMI: 22.5 kg/m Heart rate 81 bpm Blood pressure 117/80 mmHg Color Doppler was utilized to interrogate the cardiac valves assessed and spectral Doppler was utilized to determine the flow velocities and pressure gradients reported in this exam. MEASUREMENTS: Value Indexed Normal Left atrial volume 68 ml (biplane A-L) 35 ml/m Colette <= 34 LV ID (diastole) 6.8 cm (2D) 3.50 cm/m LV ID (systole) 6.7 cm (2D) 3.42 cm/m IVS, leaflet tips 1.0 cm (2D) Posterior wall thickness 0.9 cm (2D) Left ventricular mass 282 g (2D) 144 g/m Ejection Fraction 20 % (visual est.) EF > 52 FINDINGS: LEFT VENTRICLE The left ventricle is severely dilated. Left ventricular systolic function is severely decreased. Left ventricular diastolic function was not evaluated due to >2+ MR. Wall Motion: The inferior wall, basal inferolateral segment, basal anterolateral segment, and basal inferoseptal segment are akinetic. The anterior wall, mid and distal lateral wall, basal anteroseptal segment, mid anterolateral segment, and mid inferoseptal segment are severely hypokinetic. The mid and distal anterior septum, apical anterior segment, apical inferior segment, and apex are mildly hypokinetic. RIGHT VENTRICLE The right ventricle is normal in size. Pacer wires are noted in the right ventricle. Right ventricular systolic function is normal. RV systolic tissue Doppler velocity is 10.0 cm/s. Estimated right ventricular systolic pressure is 60 mmHg consistent with moderate pulmonary hypertension. Estimated right atrial pressure is 15 mmHg based on IVC assessment. LEFT ATRIUM The left atrial cavity is mildly dilated. Pulmonary Veins: The pulmonary venous pattern showed early systolic flow reversal. RIGHT ATRIUM The right atrial cavity is normal in size. Pacer wires are noted in the right atrium. Inferior Vena Cava: The inferior vena cava appears dilated measuring 2.6 cm. The vessel decreases less than 50 percent with inspiration. MITRAL VALVE There is severe (3+ - 4+) holosystolic mitral valve regurgitation due to apical tethering of normal mitral leaflet caused by LV enlargement. Regurgitant orifice area (PISA) is 0.41 cm . TRICUSPID VALVE The tricuspid valve leaflets are structurally normal. There is mild (1+) tricuspid valve regurgitation. AORTIC VALVE There is trace aortic valve regurgitation. Tricuspid aortic valve. There is mild thickening. The peak gradient is 4 mmHg (peak velocity = 101.6 cm/s). PULMONIC VALVE The pulmonic valve cusps are structurally normal. There is trace pulmonic valve regurgitation. PERICARDIUM There is no pericardial effusion. CONCLUSIONS: - Exam indication: Mitral regurgitation - The left ventricle is severely dilated. Left ventricular systolic function is severely decreased. EF = 20 5% (visual est.) - The right ventricle is normal in size. Right ventricular systolic function is normal. - The left atrial cavity is mildly dilated. - There is severe (3+ - 4+) holosystolic mitral valve regurgitation due to apical tethering of normal mitral leaflet caused by LV enlargement. Regurgitant orifice area (PISA) is 0.41 cm . - Estimated right ventricular systolic pressure is 60 mmHg consistent with moderate pulmonary hypertension. Estimated right atrial pressure is 15 mmHg based on IVC assessment. - Exam was compared with the prior echocardiographic exam performed on 12/12/2023. MR increased. LV function similar. * * * Final * * * [facility] : [id number] [employer] Normal [facility] NT PRO BNPon 02-05-2024 Natriuretic peptide.B prohormone N-Terminal [Mass/Vol] 11745 pg/mL High NINF - 450 pg/mL [facility] NT-proBNP SerPl-mCncon 02-04 Natriuretic peptide.B prohormone N-Terminal [Mass/Vol] 55726 pg/mL High <450 [facility] Comment on above: Order Comment: Speci men Type: BLOOD SPECIMENOrdering Facility: [facility] [place] Address: [address] [place] [address] Performed By: #### 2 4321-2, 98828-9 ####[facility] LABCLIA [id number] [place] [address] [place] No Panel Informationon 02-04 Interpretation and review of laboratory results Abnormal [facility] CNNURSEon 01-30-2024 CNNURSE Nurse Visit (CATHMN) IRAJOSÉ MIGUEL Fenton ([id number]) 1940 M Date Time Provider Department 01/30/24 7:00 AM RESEARCH NURSE CARD INTERVENTION MNCATHMN During your visit today, we recorded the following information about you: Velma Hankins 01/31/2024 10:56 AM Signed Called pt's daughter Charu to give update on Empower study, and to schedule screening visit. Allergies As of Date: 01/30/2024 Noted Allergy Reaction LATEX 03/13/2019 2 - Rash ADHESIVE TAPE (ROSINS) 06/16/2012 2 - Rash Date Reviewed: 01/10/2024 Reviewed by: Mirna Tam RN - Fully Assessed Reason for Visit: Research [[id number]] Cmt: 18-600 Empower Study Primary Visit Diagnosis:18-600 Empower Study [Z00.6] Prescriptions as of 01/31/2024 - MAGNESIUM GLUCONATE ORAL Take 160 mg by mouth once daily. - spironolactone (ALDACTONE) 25 mg tablet Take 12.5 mg by mouth every morning. - dapagliflozin propanediol (FARXIGA) 10 mg tablet Take 10 mg by mouth daily with breakfast. - furosemide (LASIX) 40 mg tablet Take 40 mg by mouth two times a day. 40mg daily additional 40mg every other day in evening - Cholecalciferol, Vitamin D3, 25 mcg (1,000 unit) cap Take 1,000 Units by mouth as needed. - nitroglycerin sublingual (NITROQUICK) 0.4 mg SL tablet as directed. - SPECIAL SERVICE REPRESENTATIVE 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 - aspirin, enteric coated (ASPIRIN, ENTERIC COATED) [...] 40 mg by mouth daily at bedtime. Meds Comments as of 08/04/2012: Medications verbally confirmed. Guy Fair LPN August 04, 2012 Problem List As Of Date 01/30/[address] elevation myocardial infarction (STEMI) of t*04/28/2012 05/05/2012 Atherosclerotic heart disease of [place] coronar* SUMMARY [V999.95] 04/28/2012 Wide-complex tachycardia [R00.0] [...] (coronary artery bypass graft) [Z95.1] 06/17/2012 Sweating [FGW9452] 11/17/2012 CAD (coronary artery disease) of artery bypass *11/17/2012 Systolic heart failure (HCC) [I50.20] 11/17/2012 PVD (peripheral vascular disease) (HCC) [I73.9] 11/17/2012 Prostate cancer (HCC) [C61] 10/09/2017 10/01/2023 Syncope [R55] 03/18/2019 Stroke (cerebrum) (HCC) [I63.9] 09/03/2022 Chronic combined systolic and diastolic congest*09/03/2022 Carotid stenosis, asymptomatic, bilateral [I65.*09/03/2022 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 ([id number]) 1940 Date Time Provider Department 01/14/24 Paulina FERNANDES [facility] During your visit today, we recorded the following information about you: Diya Yun 01/14/2024 2:25 PM Signed January 14, 2024 Name: José Miguel Roth Jr. Patient Contact Number: [phone] - daughter's cell - Charu Anibaljermantheron Date of last office visit: 01/10/2024 Reason For Call: Medication Issue/Question: Patient's daughter is asking if after reviewing labs are there any medication changes? Please call daughter's phone - Charu Cain Physician: Paulina Fernandes MD Patient was informed that non-urgent calls may be returned within the next three business days. Yes Diya Martinez Allergies As of Date: 01/14/2024 Noted Allergy Reaction LATEX 03/13/2019 2 - Rash ADHESIVE TAPE (ROSINS) 06/16/2012 2 - Rash Date Reviewed: 01/10/2024 Reviewed by: Mirna Tam, RN - Fully Assessed Reason for Visit: Medication Question [3778] Cmt: Patient is asking if after reviewing labs are there any medication changes? Prescriptions as of 01/21/2024 - MAGNESIUM GLUCONATE ORAL Take 160 mg by mouth once daily. - spironolactone (ALDACTONE) 25 mg tablet Take 12.5 mg by mouth every morning. - dapagliflozin propanediol (FARXIGA) 10 mg tablet Take 10 mg by mouth daily with breakfast. - furosemide (LASIX) 40 mg tablet Take 40 mg by mouth two times a day. 40mg daily additional 40mg every other day in evening - Cholecalciferol, Vitamin D3, 25 mcg (1,000 unit) cap Take 1,000 Units by mouth as needed. - nitroglycerin sublingual (NITROQUICK) 0.4 mg SL tablet as directed. - SPECIAL SERVICE REPRESENTATIVE 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 - aspirin, enteric coated (ASPIRIN, ENTERIC COATED) [...] 40 mg by mouth daily at bedtime. Meds Comments as of 08/04/2012: Medications verbally confirmed. Guy Fair LPN August 04, 2012 Problem List As Of Date 01/14/[address] elevation myocardial infarction (STEMI) of t*04/28/2012 05/05/2012 Atherosclerotic heart disease of [place] coronar* SUMMARY [V999.95] 04/28/2012 Wide-complex tachycardia [R00.0] [...] (coronary artery bypass graft) [Z95.1] 06/17/2012 Sweating [ZML7163] 11/17/2012 CAD (coronary artery disease) of artery bypass *11/17/2012 Systolic heart failure ([facility]) [I50.20] 11/17/2012 PVD (peripheral vascular disease) ([facility]) [I73.9] 11/17/2012 Prostate cancer ([facility]) [C61] 10/09/2017 10/01/2023 Syncope [R55] 03/18/2019 Stroke (cerebrum) ([facility]) [I63.9] 09/03/2022 Chronic combined systolic and diastolic congest*09/03/2022 Carotid stenosis, asymptomatic, bilateral [I65.*09/03/2022 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 ([id number]) 1940 M Date Time Provider Department 01/10/24 10:30 AM RESEARCH NURSE CARD INTERVENTION MNCATHMN During your visit today, we recorded the following information about you: Darwin Richey 01/10/2024 12:52 PM Signed IRB 18-600 Empower Assessment of the CARILLON Mitral Contour System in Treating Functional Mitral Regurgitation Associated with Heart Failure PI: Hussein Study explained/reviewed with patient and 3 daughters. Study related follow-up requirements were discussed. Risks, benefits, alternatives, personnel, and costs of the study explained/reviewed. Patient provided informed consent for review previously via fedex. Study related questions were addressed. Pt agreeable to sign consent now, with the plan that he is getting bloodwork today and the HF MD will decide if his GDMT is optimized. See consent note. Pt and family requested study card so that should he get admitted locally, they can show the team what trial he is involved in and ideally trigger a transfer to [facility]. Study card without ID or implanting date/MD given. [facility] and Dr. Brady info on card. Darwin Richey RN [phone] Referring Provider: VIRGIL CARRILLO [[id number]] Allergies As of Date: 01/10/2024 Noted Allergy Reaction LATEX 03/13/2019 2 - Rash ADHESIVE TAPE (ROSINS) 06/16/2012 2 - Rash Date Reviewed: 01/10/2024 Reviewed by: Mirna Tam RN - Fully Assessed Reason for Visit: Research [293] Cmt: IRB 18-600 Empower Assessment of the CARILLON Mitral Contour System in Treating Functional Mitral Regurgitation Associated with Heart Failure PI: Hussein Primary Visit Diagnosis:IRB 18-600 Empower Assessment of the [place] Mitral Contour System in Treating Functional Mitral Regurgitation Associated with Heart Failure PI: Hussein [Z00.6] Prescriptions as of 01/10/2024 - MAGNESIUM GLUCONATE ORAL Take 160 mg by mouth once daily. - spironolactone (ALDACTONE) 25 mg tablet Take 12.5 mg by mouth every morning. - dapagliflozin propanediol (FARXIGA) 10 mg tablet Take 10 mg by mouth daily with breakfast. - furosemide (LASIX) 40 mg tablet Take 40 mg by mouth two times a day. 40mg daily additional 40mg every other day in evening - Cholecalciferol, Vitamin D3, 25 mcg (1,000 unit) cap Take 1,000 Units by mouth as needed. - nitroglycerin sublingual (NITROQUICK) 0.4 mg SL tablet as directed. - SPECIAL SERVICE REPRESENTATIVE 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 - aspirin, enteric coated (ASPIRIN, ENTERIC COATED) [...] 40 mg by mouth daily at bedtime. Meds Comments as of 08/04/2012: Medications verbally confirmed. Guy Fair LPN August 04, 2012 Problem List As Of Date 01/10/[address] elevation myocardial infarction (STEMI) of t*04/28/2012 05/05/2012 Atherosclerotic heart disease of [place] coronar* SUMMARY [V999.95] 04/28/2012 Wide-complex tachycardia [R00.0] [...] (coronary artery bypass graft) [Z95.1] 06/17/2012 Sweating [[id number]] 11/17/2012 CAD (coronary artery disease) of artery bypass *11/17/2012 Systolic heart failure (HCC) [I50.20] 11/17/2012 PVD (peripheral vascular disease) (HCC) [I73.9] 11/17/2012 Prostate cancer (HCC) [C61] 10/09/2017 10/01/2023 Syncope [R55] 03/18/2019 Stroke (cerebrum) (HCC) [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 ([id number]) 1940 M Date Time Provider Department 01/10/24 10:15 AM Paulina FERNANDES CHF JENNIFER During your visit today, we recorded the following information about you: Pulse Respiration Blood pressure Weight 88/minute 14/minute 122/78 75.3 kg Height 1.829 m Paulina Fernandes MD 01/12/2024 1:01 PM Signed Heart [facility] V[facility] SECTION OF HEART FAILURE and CARDIAC TRANSPLANT MEDICINE OUTPATIENT VISIT DATE January 10, 2024 OUTPATIENT VISIT TYPE Consultation PRIMARY CARE PHYSICIAN: Francisca Thompson [address] [id number] CHIEF COMPLAINT: HFrEF, ischemic CM, severe FMR NURSING INTAKE (Patient?s concerns and/or recent hospitalizations/ER visits): José Miguel Roth Jr. is a 83 year old male from [place], [place] referred by Dr. Brady for GDMT. PMHx includes Severe FMR ICM s/p DC-ICD (in 2018) CABG (in 2011, with cath in 2021 with patent OTTO-LAD and SVG to OM, with occluded VG to PDA) Prior stroke in 2020 s/p tPA (no deficits) on Eliquis COPD (remote smoker) CKD (crea ~ 1.5-2.0) Right CEA (2012) HF Nursing Assessment: Interim Hospitalizations and/or ER visits: 11/18-11/25/2023 chronic systolic HF 09/27-09/29/2023 NSTEMI Chest Pain: no Skipping or irregular heartbeats: no Shortness of breath at rest: no Shortness of breath with activity: no Cough: no Waking up in the middle of the night gasping for air: no Lightheadedness or dizziness: occasional with position change Feeling like you are going to pass out: no Actually passing out: no Poor energy level: yes Unintentional weight gain: no Unintentional weight loss: no Swelling in your legs,feet, abdomen: no Filling up quickly when you eat: no HISTORY OF PRESENT ILLNESS: Has lower energy. Can walk a good distance on flat ground. He lives in a ranch home. Currently doing cardiac rehab. Had a MERRITT and subsequently had terrible throat pain. Can do 3 METS at [facility]. Hospitalized in November 2023 with volume overload and ADHF had the RHC below. Relevant Studies: Last RHC in November 2023 Hemodynamic Data: RA: 7 RV: 72/4, 10 PA: 67/21 (43) PCWP: 26 large V waves up to 41 noted on the pulmonary capillary wedge pressure tracing. 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) 09/03/2022 Dyslipidemia GERD (gastroesophageal reflux disease) Heart failure, acute systolic (HCC) Hypertension Hypothyroid Myocardial infarct, old Occlusion and stenosis of carotid artery without mention of cerebral infarction Prostate cancer (HCC) 2020 PVD (peripheral vascular disease) ([facility]) 11/17/2012 Stroke (cerebrum) ([facility]) 09/03/2022 Systolic heart failure (HCC) Thyroid disorder 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 kidney disease, unspecified CKD stage, unspecified whether care home insulin use (HCC) 04/26/2023 Ventricular tachycardia (HCC) 04/28/2012 PAST SURGICAL [...] Cigarettes, Pipe Quit date: 04/28/1982 Years since quittin.7 Passive exposure: Never Smokeless tobacco: Never Vaping Use Vaping Use: Never used Substance Use Topics Alcohol use: Yes Comment: rarely Drug use: Never FAMILY HISTORY Problem Relation Age of Onset other (atrial fibrillation) Mother other (CHF) Mother other (Other) Mother at age 96 Coronary Artery Disease Father Heart Attack Father fatal CT at age 77 Ischemic Heart Disease Brother CABGx6 first at age 72 No Known Problems Maternal Grandmother No Known Problems Maternal Grandfather No Known Problems Paternal Grandmother No Known Problems Paternal Grandfather No Known Problems Daughter No Known Problems Daughter No Known Problems Daughter other (Other) Other paternal cousin at age [address] ALLERGIES: ALLERGIES Allergen Reactions Latex Rash Adhesive Tape (Keyanna* Rash CURRENT MEDICATIONS: MAGNESIUM GLUCONATE ORAL Take 160 mg by mouth once daily. spironolactone (ALDACTONE) 25 mg tablet Take 12.5 mg by mouth ev (more content not included)... Normal [facility] Comprehensive metabolic 2000 panelon 01-10-2024 Albumin [Mass/Vol] 3.7 g/dL Low 3.9 - 4.9 g/dL [facility] ALP [Catalytic activity/Vol] 109 U/L 38 - 113 U/L [facility] ALT [Catalytic activity/Vol] 10 U/L 10 - 54 U/L [facility] Anion gap [Moles/Vol] 14 mmol/L 9 - 18 mmol/L [facility] AST [Catalytic activity/Vol] 20 U/L 14 - 40 U/L [facility] Bilirubin [Mass/Vol] 1.1 mg/dL 0.2 - 1.3 mg/dL [facility] Calcium [Mass/Vol] 9.8 mg/dL 8.5 - 10. 2 mg/dL [facility] Chloride [Moles/Vol] 95 mmol/L Low 97 - 105 mmol/L [facility] CO2 [Moles/Vol] 25 mmol/L 22 - 30 mmol/L [facility] Creatinine [Mass/Vol] 2.50 mg/dL High 0.73 - 1.22 mg/dL [facility] GFR/1.73 sq M.predicted among non-blacks MDRD (S/P/Bld) [Vol rate/Area] 25 mL/min/{1.73_m2} Low - PINF [facility] Comment on above: Estimated Glomerular Filtration Rate (eGFR) is calculated using the 2020 CKD-EPI creatinine equation. This equation utilizes serum creatinine, sex, and age as parameters. The creatinine assay has traceable calibration to isotope dilution-mass spectrometry. Refer to KDIGO guidelines for clinical interpretation. In patients with unstable renal function, e.g. those with acute kidney injury, the eGFR may not accurately reflect actual GFR. Glucose [Mass/Vol] 105 mg/dL High 74 - 99 mg/dL [facility] Comment on above: The [place] Diab[employer] s Association (ADA) provides guidance for cutoff values [...] Standards of Medical Care in Diabetes 2016, [place] [employer] Association. Diabetes Care. 2016.39(Suppl 1). Potassium [Moles/Vol] 3.9 mmol/L 3.7 - 5.1 mmol/L [facility] Protein [Mass/Vol] 7.2 g/dL 6.3 - 8.0 g/dL [facility] Sodium [Moles/Vol] 134 mmol/L Low 136 - 144 mmol/L [facility] Urea nitrogen [Mass/Vol] 44 mg/dL High 9 - 24 mg/dL [facility] Albumin [Mass/Vol] 3.7 g/dL Low 3.9-4.9 [facility] Comment on above: Order Comment: Speci men Type: BLOOD SPECIMENOrdering Facility: [facility] [place] Address: [address] [place] [address] Performed By: #### 3 3762-6, 82763-1 ####[facility] LABCLIA [id number] [place] [address] [place] ALP [Catalytic activity/Vol] 109 U/L Normal 38-113 [facility] Comment on above: Order Comment: Speci men Type: BLOOD SPECIMENOrdering Facility: [facility] [place] Address: [address] [place] [address] Performed By: #### 3 3762-6, ####[facility] LABCLIA [id number] [place] [address] [place] ALT [Catalytic activity/Vol] 10 U/L Normal 10-54 [facility] Comment on above: Order Comment: Speci men Type: BLOOD SPECIMENOrdering Facility: [facility] [place] Address: [address] [place] [address] Performed By: #### 3 3762-6, 39210-2 ####[facility] LABCLIA [id number] [place] [address] [place] Anion gap [Moles/Vol] 14 mmol/L Normal 9-18 [facility] Comment on above: Order Comment: Speci men Type: BLOOD SPECIMENOrdering Facility: [facility] [place] Address: [address] [id number] Performed By: #### 3 3762-6, 55174-9 ####[facility] LABCLIA [id number] [place] [address] [place] AST [Catalytic activity/Vol] 20 U/L Normal 14-40 [facility] Comment on above: Order Comment: Speci men Type: BLOOD SPECIMENOrdering Facility: [facility] [place] Address: [address] [place], [place] [address] Performed By: #### 3 3762-6, ####[facility] LABCLIA [id number] [place] [address] [place] Bilirubin [Mass/Vol] 1.1 mg/dL Normal 0.2-1.3 [facility] Comment on above: Order Comment: Speci men Type: BLOOD SPECIMENOrdering Facility: [facility] [place] Address: [address] [place] [address] Performed By: #### 3 3762-6, ####[facility] LABCLIA [id number] [place] [address] [place] Calcium [Mass/Vol] 9.8 mg/dL Normal 8.5-10.2 [facility] Comment on above: Order Comment: Speci men Type: BLOOD SPECIMENOrdering Facility: [facility] [place] Address: [address] [place] [address] Performed By: #### 3 3762-6, ####[facility] LABCLIA [id number] [place] [address] [place] Chloride [Moles/Vol] 95 mmol/L Low 97-105 [facility] Comment on above: Order Comment: Speci men Type: BLOOD SPECIMENOrdering Facility: [facility] [place] Address: [address] [place] [address] Performed By: #### 3 3762-6, ####[facility] LABCLIA [id number] [facility] [place] [id number] [place] CO2 [Moles/Vol] 25 mmol/L Normal 22-30 [facility] Comment on above: Order Comment: Speci men Type: BLOOD SPECIMENOrdering Facility: [facility] [place] Address: [address] [place] [address] Performed By: #### 3 3762-6, 52121-5 ####[facility] LABCLIA [id number] [place] [address] [place] Creatinine [Mass/Vol] 2.50 mg/dL High 0.73-1.22 [facility] Comment on above: Order Comment: Dylan olvera Type: BLOOD SPECIMENOrdering Facility: [facility] [place] Address: [address] [place] [address] Performed By: #### 3 3762-6, 32133-2 ####[facility] LABIA [id number] [address] OF [place] Creatinine and Glomerular filtration rate.predicted panel (S/P/Bld) 25 mL/min/1.73m??? Low >=60 [facility] Comment on above: Order Comment: Dylan olvera Type: BLOOD SPECIMENOrdering Facility: [facility] [place] Address: [address] [place] [address] Result Comment: Etta mated Glomerular Filtration Rate [...] accurately reflect actual GFR. Performed By: #### 3 3762-6, 48411-7 ####[facility] LABCLIA [id number] [place] [address] [place] Glucose [Mass/Vol] 105 mg/dL High 74-99 [facility] Comment on above: Order Comment: Dylan olvera Type: BLOOD SPECIMENOrdering Facility: [facility] [place] Address: [address] [place] [address] Result Comment: The [place] Diabetes Association (ADA) provides guidance for cutoff [...] Standards of Medical Care in Diabetes 2016, [place] [employer]. Diabetes Care. 2016.39(Suppl 1). Performed By: #### 3 3762-6, ####[facility] LABCLIA [id number] [place] [address] [place] Potassium [Moles/Vol] 3.9 mmol/L Normal 3.7-5.1 [facility] Comment on above: Order Comment: Speci men Type: BLOOD SPECIMENOrdering Facility: [facility] [place] Address: [address] [place] [address] Performed By: #### 3 3762-6, ####[facility] LABCLIA [id number] [place] [address] [place] Protein [Mass/Vol] 7.2 g/dL Normal 6.3-8.0 [facility] Comment on above: Order Comment: Speci men Type: BLOOD SPECIMENOrdering Facility: [facility] [place] Address: [address] [place] [address] Performed By: #### 3 376-6, ####[facility] LABCLIA [id number] [place] [address] [place] Sodium [Moles/Vol] 134 mmol/L Low 136-144 [facility] Comment on above: Order Comment: Speci men Type: BLOOD SPECIMENOrdering Facility: [facility] [place] Address: [address] [place] [address] Performed By: #### 3 3762-6, ####[facility] LABCLIA [id number] [place] [id number] [place] Urea nitrogen [Mass/Vol] 44 mg/dL High 9-24 [facility] Comment on above: Order Comment: Speci men Type: BLOOD SPECIMENOrdering Facility: [facility] [place] Address: [address] [place] [address] Performed By: #### 3 3762-6, 48552-6 ####[facility] LABCLIA [id number] [place] [address] [place] NT PRO BNPon 01-10-2024 Natriuretic peptide.B prohormone N-Terminal [Mass/Vol] 71917 pg/mL High NINF - 450 pg/mL [facility] NT-proBNP SerPl-mCncon 01-09 Natriuretic peptide.B prohormone N-Terminal [Mass/Vol] 31675 pg/mL High <450 [facility] Comment on above: Order Comment: Speci men Type: BLOOD SPECIMENOrdering Facility: [facility] [place] Address: [address] [place] [address] Performed By: #### 3 3762-6, 11849-5 ####[facility] LABCLIA [id number] [place] [address] [place] No Panel Informationon 01-09 Interpretation and review of laboratory results Abnormal [facility] CNNURSEon 01-02-2024 CNNURSE Nurse Visit (CATHMN) JOSÉ MIGUEL ROTH JR. ([id number]) 1940 M Date Time Provider Department 01/02/24 3:00 PM RESEARCH NURSE CARD INTERVENTION MNCATHMN During your visit today, we recorded the following information about you: Darwin Richey 01/02/2024 2:28 PM Signed IRB 18-600 Empower Assessment of the CARILLON Mitral Contour System in Treating Functional Mitral Regurgitation Associated with Heart Failure PI: Hussein Study explained/reviewed with patient's daughter Charu. Study related follow-up requirements were discussed. Risks, benefits, alternatives, personnel, and costs of the study explained/reviewed. Study related questions were addressed. Agreeable to see research before Dr. Fernandes on 01/09, followed by baseline images/testing if he is optimized. Darwin Richey RN [phone] Allergies As of Date: 01/02/2024 Noted Allergy Reaction LATEX 03/13/2019 2 - Rash ADHESIVE TAPE (ROSINS) 06/16/2012 2 - Rash Date Reviewed: 12/26/2023 Reviewed by: Jennifer Conway MA - Fully Assessed Reason for Visit: Research F/U [778] Cmt: IRB 18-600 Empower Assessment of the CARILLON Mitral Contour System in Treating Functional Mitral Regurgitation Associated with Heart Failure PI: Hussein Primary Visit Diagnosis:IRB 18-600 Empower Assessment of the CARILLON Mitral Contour System in Treating Functional Mitral Regurgitation Associated with Heart Failure PI: Hussein [Z00.6] Prescriptions as of 01/02/2024 - MAGNESIUM GLUCONATE ORAL Take 160 mg by mouth once daily. - spironolactone (ALDACTONE) 25 mg tablet Take 12.5 mg by mouth every morning. - dapagliflozin propanediol (FARXIGA) 10 mg tablet Take 10 mg by mouth daily with breakfast. - furosemide (LASIX) 40 mg tablet Take 40 mg by mouth two times a day. - Cholecalciferol, Vitamin D3, 25 mcg (1,000 unit) cap Take 1,000 Units by mouth as needed. - nitroglycerin sublingual (NITROQUICK) 0.4 mg SL tablet as directed. - SPECIAL SERVICE REPRESENTATIVE 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 - aspirin, enteric coated (ASPIRIN, ENTERIC COATED) [...] 40 mg by mouth daily at bedtime. Meds Comments as of 08/04/2012: Medications verbally confirmed. Guy Fair LPN August 04, 2012 Problem List As Of Date 01/02/[address] elevation myocardial infarction (STEMI) of t*04/28/2012 05/05/2012 Atherosclerotic heart disease of [place] coronar* SUMMARY [V999.95] 04/28/2012 Wide-complex tachycardia [R00.0] [...] (coronary artery bypass graft) [Z95.1] 06/17/2012 Sweating [[id number]] 11/17/2012 CAD (coronary artery disease) of artery bypass *11/17/2012 Systolic heart failure (HCC) [I50.20] 11/17/2012 PVD (peripheral vascular disease) (HCC) [I73.9] 11/17/2012 Prostate cancer (HCC) [C61] 10/09/2017 10/01/2023 Syncope [R55] 03/18/2019 Stroke (cerebrum) ([facility]) [I63.9] 09/03/2022 Chronic combined systolic and diastolic congest*09/03/2022 Carotid stenosis, asymptomatic, bilateral [I65.*09/03/2022 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 ([id number]) 1940 M Date Time Provider Department 01/02/24 RESEARCH NURSE CARD INTERVENTION MNCARDMN During your visit today, we recorded the following information about you: Velma Hankins 01/02/2024 2:58 PM Signed Called the pt to schedule screening appointments for the Empower trial. Pt has an existing appt with Dr. Fernandes on 01/10/24. However there are no research echos available that day after his appt with Dr. Fernandes. I offered the pt an appointment with Dr. Fernandes on 01/08/24, followed by nurse visit, research echo, EKG and Labs for the Empower trial. He stated that he had many questions about the research study, and would prefer to keep his 01/09 appointment and speak to the research nurse at that time, before making appointments related to research. He stated he would talk to his family and if he changed his mind he would call back and let the research team know. Velma Hankins January 02, 2024 2:58 PM Allergies As of Date: 01/02/2024 Noted Allergy Reaction LATEX 03/13/2019 2 - Rash ADHESIVE TAPE (ROSINS) 06/16/2012 2 - Rash Date Reviewed: 12/26/2023 Reviewed by: Jennifer Conway MA - Fully Assessed Reason for Visit: Appointment [186] Patient Update [1234] Prescriptions as of 01/02/2024 - MAGNESIUM GLUCONATE ORAL Take 160 mg by mouth once daily. - spironolactone (ALDACTONE) 25 mg tablet Take 12.5 mg by mouth every morning. - dapagliflozin propanediol (FARXIGA) 10 mg tablet Take 10 mg by mouth daily with breakfast. - furosemide (LASIX) 40 mg tablet Take 40 mg by mouth two times a day. - Cholecalciferol, Vitamin D3, 25 mcg (1,000 unit) cap Take 1,000 Units by mouth as needed. - nitroglycerin sublingual (NITROQUICK) 0.4 mg SL tablet as directed. - SPECIAL SERVICE REPRESENTATIVE 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 - aspirin, enteric coated (ASPIRIN, ENTERIC COATED) [...] 40 mg by mouth daily at bedtime. Meds Comments as of 08/04/2012: Medications verbally confirmed. Guy Fair LPN August 04, 2012 Problem List As Of Date 01/02/[address] elevation myocardial infarction (STEMI) of t*04/28/2012 05/05/2012 Atherosclerotic heart disease of [place] coronar* SUMMARY [V999.95] 04/28/2012 Wide-complex tachycardia [R00.0] [...] (coronary artery bypass graft) [Z95.1] 06/17/2012 Sweating [UGG3230] 11/17/2012 CAD (coronary artery disease) of artery bypass *11/17/2012 Systolic heart failure ([facility]) [I50.20] 11/17/2012 PVD (peripheral vascular disease) ([facility]) [I73.9] 11/17/2012 Prostate cancer ([facility]) [C61] 10/09/2017 10/01/2023 Syncope [R55] 03/18/2019 Stroke (cerebrum) ([facility]) [I63.9] 09/03/2022 Chronic combined systolic and diastolic congest*09/03/2022 Carotid stenosis, asymptomatic, bilateral [I65.*09/03/2022 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 ([id number]) 1940 M Date Time Provider Department 01/01/24 7:00 AM RESEARCH NURSE CARD INTERVENTION MNCATHMN During your visit today, we recorded the following information about you: Darwin Richey 01/01/2024 4:25 PM Signed Study name: EMPOWER Trial IRB# 18-600 PI: Andrés Savage Contacted pt regarding above listed trial, as his daughter did not reach out to me today. He stated that I should wait for her to call me. Reinforced hours and contact number. We will call him next week if she doesn't reach out. Plastics Fitter: Darwin Richey Pager #: [phone] Allergies As of Date: 01/01/2024 Noted Allergy Reaction LATEX 03/13/2019 2 - Rash ADHESIVE TAPE (ROSINS) 06/16/2012 2 - Rash Date Reviewed: 12/26/2023 Reviewed by: Jennifer Conway MA - Fully Assessed Reason for Visit: Research F/U [778] Cmt: Study name: EMPOWER Trial IRB# 18-600 PI: Andrés Savage Primary Visit Diagnosis:Study name: EMPOWER Trial IRB# 18-600 [Z00.6] Prescriptions as of 01/01/2024 - MAGNESIUM GLUCONATE ORAL Take 160 mg by mouth once daily. - spironolactone (ALDACTONE) 25 mg tablet Take 12.5 mg by mouth every morning. - dapagliflozin propanediol (FARXIGA) 10 mg tablet Take 10 mg by mouth daily with breakfast. - furosemide (LASIX) 40 mg tablet Take 40 mg by mouth two times a day. - Cholecalciferol, Vitamin D3, 25 mcg (1,000 unit) cap Take 1,000 Units by mouth as needed. - nitroglycerin sublingual (NITROQUICK) 0.4 mg SL tablet as directed. - SPECIAL SERVICE REPRESENTATIVE 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 - aspirin, enteric coated (ASPIRIN, ENTERIC COATED) [...] 40 mg by mouth daily at bedtime. Meds Comments as of 08/04/2012: Medications verbally confirmed. Guy Fair LPN August 04, 2012 Problem List As Of Date 01/01/[address] elevation myocardial infarction (STEMI) of t*04/28/2012 05/05/2012 Atherosclerotic heart disease of [place] coronar* SUMMARY [V999.95] 04/28/2012 Wide-complex tachycardia [R00.0] [...] (coronary artery bypass graft) [Z95.1] 06/17/2012 Sweating [IRC6104] 11/17/2012 CAD (coronary artery disease) of artery bypass *11/17/2012 Systolic heart failure (HCC) [I50.20] 11/17/2012 PVD (peripheral vascular disease) ([facility]) [I73.9] 11/17/2012 Prostate cancer ([facility]) [C61] 10/09/2017 10/01/2023 Syncope [R55] 03/18/2019 Stroke (cerebrum) ([facility]) [I63.9] 09/03/2022 Chronic combined systolic and diastolic congest*09/03/2022 Carotid stenosis, asymptomatic, bilateral [I65.*09/03/2022 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 ([id number]) 1940 M Date Time Provider Department 12/30/23 7:00 AM RESEARCH NURSE CARD INTERVENTION MNCATHMN During your visit today, we recorded the following information about you: Darwin Richey 12/30/2023 3:43 PM Signed IRB 18-600 Empower Assessment of the CARILLON Mitral Contour System in Treating Functional Mitral Regurgitation Associated with Heart Failure PI: Hussein Study explained/reviewed with patient. Study related follow-up requirements were discussed. Risks, benefits, alternatives, personnel, and costs of the study explained/reviewed. Patient provided informed consent for review via email. Study related questions were addressed. Pt would like to review with his daughter and have a call later this week to discuss. He stated his daughter will call me on Saturday. Follow up appointment added. Darwin Richey RN [phone] Allergies As of Date: 12/30/2023 Noted Allergy Reaction LATEX 03/13/2019 2 - Rash ADHESIVE TAPE (ROSINS) 06/16/2012 2 - Rash Date Reviewed: 12/26/2023 Reviewed by: Jennifer Conway MA - Fully Assessed Reason for Visit: Research F/U [778] Cmt: IRB 18-600 Empower Assessment of the CARILLON Mitral Contour System in Treating Functional Mitral Regurgitation Associated with Heart Failure PI: Hussein Primary Visit Diagnosis:IRB 18-600 Empower Assessment of the CARILLON Mitral Contour System in Treating Functional Mitral Regurgitation Associated with Heart Failure PI: Hussein [Z00.6] Prescriptions as of 12/30/2023 - MAGNESIUM GLUCONATE ORAL Take 160 mg by mouth once daily. - spironolactone (ALDACTONE) 25 mg tablet Take 12.5 mg by mouth every morning. - dapagliflozin propanediol (FARXIGA) 10 mg tablet Take 10 mg by mouth daily with breakfast. - furosemide (LASIX) 40 mg tablet Take 40 mg by mouth two times a day. - Cholecalciferol, Vitamin D3, 25 mcg (1,000 unit) cap Take 1,000 Units by mouth as needed. - nitroglycerin sublingual (NITROQUICK) 0.4 mg SL tablet as directed. - SPECIAL SERVICE REPRESENTATIVE 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 - aspirin, enteric coated (ASPIRIN, ENTERIC COATED) [...] 40 mg by mouth daily at bedtime. Meds Comments as of 08/04/2012: Medications verbally confirmed. Guy Fair LPN August 04, 2012 Problem List As Of Date 12/30/[address] elevation myocardial infarction (STEMI) of t*04/28/2012 05/05/2012 Atherosclerotic heart disease of [place] coronar* SUMMARY [V999.95] 04/28/2012 Wide-complex tachycardia [R00.0] [...] (coronary artery bypass graft) [Z95.1] 06/17/2012 Sweating [[id number]] 11/17/2012 CAD (coronary artery disease) of artery bypass *11/17/2012 Systolic heart failure (HCC) [I50.20] 11/17/2012 PVD (peripheral vascular disease) (HCC) [I73.9] 11/17/2012 Prostate cancer (HCC) [C61] 10/09/2017 10/01/2023 Syncope [R55] 03/18/2019 Stroke (cerebrum) (HCC) [I63.9] 09/03/2022 Chronic combined systolic and diastolic congest*09/03/2022 Carotid stenosis, asymptomatic, bilateral [I65.*09/03/2022 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 ([id number]) 1940 Date Time Provider Department 12/26/23 11:15 AM EFREN BRADY During your visit today, we recorded the following information about you: Pulse Respiration Blood pressure Weight 78/minute 12/minute 128/64 77.1 kg Height 1.829 m Efren Brady MD 12/26/2023 1:56 PM Signed [facility] Department of Cardiovascular Medicine SECTION OF CARDIOVASCULAR IMAGING December 26, 2023 Visit Type: New patient Reason for visit: Severe MR HPI: 83 year old gentleman here for severe FMR. Has ICM s/p DC-ICD (in 2018), prior CABG (in 2011, with cath in 2021 with patent OTTO-LAD and SVG to OM, with occluded VG to PDA), prior stroke in 2020 s/p tPA (no deficits) on Eliquis, COPD (remote smoker), and CKD (crea ~ 1.5-2.0), right CEA Relevant Studies: Last RHC in November 2023 Hemodynamic Data: RA: 7 RV: 72/4, 10 PA: 67/21 (43) PCWP: 26 large V waves up to 41 noted on the pulmonary capillary wedge pressure tracing. CO: 4.26 CI: 2.12 O2 Sat: PA sat: 58%, AO sat: 94% BP: 117/68 (84) TP PVR: 4.0 Wood units SVR: 1446 Metric units Review of Systems CONSTITUTIONAL- No weight loss, No fevers, chills, or night sweats HEENT- Negative for frequent or significant headaches, No changes in hearing or vision, no nose bleeds or other nasal problems NECK- Negative for lumps, goiter, pain and significant neck swelling CARDIOVASCULAR- as per HPI RESP- No coughing, wheezing. No hemoptysis. GI- No nausea, No vomiting. No changes in BM, No diarrhea, No constipation, No blood in stools. ENDO- No changes in urination frequency. No increase thirst. GENITOURINARY- No pain with urination. No blood in urine. NEUROLOGIC:Negative for focal numbness or weakness, headaches and dizziness MUSCULOSKELETAL- Negative for joint pain or swelling, back pain or muscle pain. SKIN- Negative for lesions, rash, and itching. HEMATOLOGY/LYMPHOLOGY- Negative for prolonged bleeding, bruising easily or swollen nodes. All other reviewed and negative other than HPI. Medical History: 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 ([facility]) 09/03/2022 Dyslipidemia GERD (gastroesophageal reflux disease) Heart failure, acute systolic (HCC) Hypertension Hypothyroid Myocardial infarct, old Occlusion and stenosis of carotid artery without mention of cerebral infarction Prostate cancer ([facility]) 2020 PVD (peripheral vascular disease) ([facility]) 11/17/2012 Stroke (cerebrum) ([facility]) 09/03/2022 Systolic heart failure ([facility]) Thyroid disorder 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 kidney disease, unspecified CKD stage, unspecified whether superintendent container terminal insulin use ([facility]) 04/26/2023 Ventricular tachycardia ([facility]) 04/28/2012 Surgical History: PAST SURGICAL HISTORY Procedure Laterality Date ANGIOGRAPHY, EXT CAROTID Right 2011 CABG (3) VEIN GRAFTS AND ARTERIAL GRAFT(S) 05/01/2012 Median sternotomy, coronary artery bypass grafting with in situ left internal thoracic artery to the LAD, and reverse saphenous vein graft to the posterior descending artery and obtuse marginal. HEART CATHETERIZATION Family History: FAMILY HISTORY Problem Relation Age of Onset other (atrial fibrillation) Mother other (CHF) Mother other (Other) Mother at age 96 Coronary Artery Disease Father Heart Attack Father fatal CT at age 77 Ischemic Heart Disease Brother CABGx6 first at age 72 No Known Problems Maternal Grandmother No Known Problems Maternal Grandfather No Known Problems Paternal Grandmother No Known Problems Paternal Grandfather No Known Problems Daughter No Known Problems Daughter No Known Problems Daughter other (Other) Other paternal cousin at age 50 [address] Social History: Social History Tobacco Use Smoking status: Former Packs/day: 1.00 Years: 10.00 Additional pack years: 0.00 Total pack years: 10.00 Types: Cigarettes, Pipe Quit date: 04/28/1982 Years since quittin.6 Passive exposure: Never Smokeless tobacco: Never Vaping Use Vaping Use: Never used Substance Use Topics Alcohol use: Yes Comment: rarely Drug use: Never Allergies: ALLERGIES Allergen Reactions Latex Rash Adhesive Tape (Keyanna* Rash Current Medications dapagliflozin propanediol (FARXIGA) 10 mg tablet Take 10 mg by mouth daily with breakfast. furosemide (LASIX) 40 mg tablet Take 40 mg by mouth two times a day. Cholecalciferol, Vitamin D3, 25 mcg (1,000 unit) cap Take 1,000 Units by mouth as needed. nitroglycerin sublingual (NITROQUICK) 0.4 mg SL tablet as directed. SPECIAL SERVICE REPRESENTATIVE 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 aspirin, enteric coated (ASPIRIN, ENTERIC COATED) 81 (more content not included)... Normal [facility] Follow-Upon 12-25-2023 Follow-Up Normal [facility] ICD REMOTE CHECKon 4 AV Delay Adaptive Paced Minimum (ms) 200 ms [facility] AV Delay Adaptive Sensed Minimum (ms) 170 ms [facility] Bj RA Pacing Amplitude (volts) 2.0 V [facility] Bj RA Pacing Polarity BI [facility] Bj RA Pacing Pulse Width (ms) 0.5 ms [facility] Bj RA Sensing Amplitude (mvolts) 0.25 mV [facility] Bj RA Sensing Polarity BI [facility] Bj RV Pacing Amplitude (volts) 2.0 V [facility] Bj RV Pacing Polarity BI [facility] Bj RV Pacing Pulse Width (ms) 0.5 ms [facility] Bj RV Sensing Amplitude (mvolts) 0.3 mV [facility] Bj RV Sensing Polarity [facility] Detection Configuration (Vent) 2 - Zone [facility] FastVT_Detection Interval 250 ms [facility] FastVT_Therapy Configuration 1 ATP(s) + 8 Shock(s) [facility] ICD FastVT DetectionStatus ENABLED [facility] ICD-AMS EPISODES 170 {beats}/min [facility] ICD-ATP Episodes (Vent) 1 [facility] ICD-ATRIALFIBRILLAT ION 9 [facility] ICD-ATRIALTACHYCARD IA 9 [facility] ICD-ATRIALTACHYCARD IA 2 [facility] ICD-ATRIALTACHYCARD IA 1 [facility] ICD-Device Mfg BSX [facility] ICD-Fast Ventricular Tachycardia 2 [facility] ICD-Fast Ventricular Tachycardia 1 [facility] ICD-Fast Ventricular Tachycardia 0 [facility] ICD-LEADIMPEDANCEAT RIAL 767 ohm [facility] ICD-Percent Pacing (Atrial) 0 % [facility] ICD-Percent Pacing (Vent) 0 % [facility] ICD-Shocks Aborted (Vent) 0 [facility] CSH-JFNAXN-MCIQFCMU D 0 [facility] ICD-SHOCKSABORTED 0 [facility] ICD-SHOCKSDELIVERED VENTRICULAR 0 [facility] ICD-Ventricular Fibrillation 0 [facility] Lead Impedance (RV) 437 ohm [facility] Lead Impedance High Voltage 51 ohm [facility] Lead1 Mfg BSX [facility] Lead2 Mfg BSX [facility] Location RV [facility] Location RA [facility] Lower Rate (bpm) 50 {beats}/min [facility] Max Sensor Rate (bpm) 130 {beats}/min [facility] MDT_PROG_TACHY_ZONE _DETECTIONS_STATUS ENABLED [facility] Model D142 INOGEN [facility] Model 0675 [place] 4-Front [facility] Model 7741 Ingevity MRI [facility] Pacing Mode DDDR [facility] Serial Number [id number] [facility] Serial Number [id number] [facility] Serial Number [id number] [facility] Test Charge Energy [address] [facility] Test Charge Time 10.3 s [facility] Therapy Status (Vent) Enabled [facility] Thresh RA Capture Amplitude (volts) 0.9 V [facility] Thresh RA Capture Duration (ms) 0.5 ms [facility] Thresh RV Capture Amplitude (VOLTS) 0.4 V [facility] Thresh RV Capture Duration (MS) 0.5 ms [facility] Tracking Rate (bpm) 130 {beats}/min [facility] VF Zone Detection Interval 250 ms [facility] VF Zone Therapy Configuration 1 ATP(s) + 8 Shock(s) [facility] No Panel Informationon 12-22 BLANK _ [facility] ICD-ATRIALTACHYCARD IA 0 [facility] Implant Date 03/24/2019 [facility] CNPNon 12-17-2023 CNPN Telephone (CARIMN) JOSÉ MIGUEL ROTH JR. ([id number]) 1940 M Date Time Provider Department 12/17/23 VIRGIL CARRILLO During your visit today, we recorded the following information about you: Bela Grimes 12/17/2023 12:10 PM Signed December 17, 2023 Patient Contact Number: [phone] Patient last seen within the last year: Yes Date of last office visit: 12/12/2023 Reason For Call: Daughter called to verify okay for Mr. Roth to start cardiac rehabilitation. Physician: Virgil Carrillo MD Patient was informed that non-urgent calls may be returned within the next three business days. Yes Virgil Hannah MD 12/23/2023 11:18 AM Signed I don't think cardiac rehab will be appropriate for now. Nhi, can you please let him know? Carmelina, can you send Dr Brady and I your last note? I wanted to see his progress and get Dr. Brady to see him as a consult. Virgil Carrillo MD 12/23/2023 1:06 PM Signed Thanks everyone. Allergies As of Date: 12/17/2023 Noted Allergy Reaction LATEX 03/13/2019 2 - Rash ADHESIVE TAPE (ROSINS) 06/16/2012 2 - Rash Date Reviewed: 12/12/2023 Reviewed by: Carmelina Carrasco, MASTER MERCHANDISER.CUT OFF [employer] - Fully Assessed Reason for Visit: Cardiac Rehab [3551] Prescriptions as of 12/23/2023 - dapagliflozin propanediol (FARXIGA) 10 mg tablet Take 10 mg by mouth daily with breakfast. - furosemide (LASIX) 40 mg tablet Take 40 mg by mouth two times a day. - Cholecalciferol, Vitamin D3, 25 mcg (1,000 unit) cap Take 1,000 Units by mouth as needed. - nitroglycerin sublingual (NITROQUICK) 0.4 mg SL tablet as directed. - SPECIAL SERVICE REPRESENTATIVE 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 - aspirin, enteric coated (ASPIRIN, ENTERIC COATED) [...] 40 mg by mouth daily at bedtime. Meds Comments as of 08/04/2012: Medications verbally confirmed. Guy Fair LPN August 04, 2012 Problem List As Of Date 12/17/[address] elevation myocardial infarction (STEMI) of t*04/28/2012 05/05/2012 Atherosclerotic heart disease of [place] coronar* SUMMARY [V999.95] 04/28/2012 Wide-complex tachycardia [R00.0] [...] (coronary artery bypass graft) [Z95.1] 06/17/2012 Sweating [SCQ7343] 11/17/2012 CAD (coronary artery disease) of artery bypass *11/17/2012 Systolic heart failure ([facility]) [I50.20] 11/17/2012 PVD (peripheral vascular disease) ([facility]) [I73.9] 11/17/2012 Prostate cancer ([facility]) [C61] 10/09/2017 10/01/2023 Syncope [R55] 03/18/2019 Stroke (cerebrum) ([facility]) [I63.9] 09/03/2022 Chronic combined systolic and diastolic congest*09/03/2022 Carotid stenosis, asymptomatic, bilateral [I65.*09/03/2022 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 ([id number]) 1940 M Date Time Provider Department 12/12/23 1:30 PM CARMELINA CARRASCO During your visit today, we recorded the following information about you: Pulse Respiration Blood pressure Weight 81/minute 18/minute 117/76 75.3 kg Height 1.829 m Carmelina Carrasco, MASTER MERCHANDISER.CUT OFF [employer] 12/23/2023 11:39 PM Signed [facility] Department of Cardiovascular Medicine SECTION OF CARDIOVASCULAR IMAGING OUTPATIENT VISIT DATE December 12, 2023 OUTPATIENT VISIT TYPE ESTABLISHED PRIMARY CARE PHYSICIAN: Francisca Thompson [address] [place] [address] REFERRING PHYSICIAN: No referring provider defined for this encounter. CHIEF COMPLAINT: Severe mitral regurgiation HISTORY OF PRESENT ILLNESS: Mr. Roth is a 83 year old male with PMH of ischemic cardiomyopathy (LVEF 20%), CAD s/p CABG x 3 2005 (occluded SVG to PDA), secondary MR, Ventricular tachycardia s/p ICD, PAD, ischemic stroke, CKD IIIb, and HTN who presents today for follow-up visit. He was last seen in office by Dr. Carrillo on 10/29/23 at which time he followed up after hospital admission for ADHF after stopping Farxiga due to kidney concerns. Reported stable weight around 177 lbs. He recommended lasix once a day, continued metoprolol XL 25 mg a day and recommended restarting Farxiga if repeat GFR stable (>=20). He was admitted to the hospital in [place] on 11/18 for FVO, diuresed with IV lasix. He was recommended for MVr, however, he wanted to discuss with Dr. Carrillo. OSH MERRITT 11/18 reports Severe MR with systoic flow reversal in the right pulmonary veins consistent with severe mitral regurgitation. Since discharge, weight has been stable at 166 lbs (177 lbs last office visit) . He walked from the building, denies shortness of breath. No edema in legs or abdomen. Occasional lightheaded/dizziness when bending over. His daughters are present at today's visit. They feel he is more symptomatic than his reports. Home Blood pressure 100-115/65-75. Heart rate 65-76 bpm Current GDMT: lasix 40 mg BID, Metoprolol succ 25 mg daily, Spironolactone 12.5 mg daily -reportedly started on Entresto during hospitalization, however, blood pressure did not tolerate this 11/24 eGFR 31.2 -->11/28 eGFR 24, SCr 2.55 PAST CARDIAC HISTORY: Past medical history includes but is not limited to: Ischemic cardiomyopathy LVEF approximately 20% Secondary mitral regurgitation Coronary artery disease, s/p CABG x 3 (OTTO to LAD, SVG to PDA, SVG to OM) in 2005, last coronary angiography in 2021 showed patent OTTO to LAD and SVG to OM, and occluded SVG to PDA Ventricular tachycardia, ICD Peripheral artery disease Ischemic stroke, tPA August 2021, prescribed Eliquis, subsequently staged CKD stage IIIb Hypertension 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) 09/03/2022 Dyslipidemia GERD (gastroesophageal reflux disease) Heart failure, acute systolic ([facility]) Hypertension Hypothyroid Myocardial infarct, old Occlusion and stenosis of carotid artery without mention of cerebral infarction Prostate cancer ([facility]) 2020 PVD (peripheral vascular disease) ([facility]) 11/17/2012 Stroke (cerebrum) ([facility]) 09/03/2022 Systolic heart failure ([facility]) Thyroid disorder 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 kidney disease, unspecified CKD stage, unspecified whether care home insulin use ([facility]) 04/26/2023 Ventricular tachycardia ([facility]) 04/28/2012 PAST SURGICAL HISTORY [...] Cigarettes, Pipe Quit date: 04/28/1982 Years since quittin.6 Passive exposure: Never Smokeless tobacco: Never Vaping Use Vaping Use: Never used Substance Use Topics Alcohol use: Yes Comment: rarely Drug use: Never FAMILY HISTORY Problem Relation Age of Onset other (atrial fibrillation) Mother other (CHF) Mother other (Other) Mother at age 96 Coronary Artery Disease Father Heart Attack Father fatal CT at age 77 Ischemic Heart Disease Brother CABGx6 first at age 72 No Known Problems Maternal Grandmother No Known Problems Maternal Grandfather No Known Problems Paternal Grandmother (more content not included)... Normal [facility] metabolic 2000 panelon 12-12-2023 Albumin [Mass/Vol] 4.0 g/dL Normal 3.9-4.9 [facility] Comment on above: Order Comment: Speci men Type: BLOOD SPECIMENOrdering Facility: [facility] [place] Address: [address] [place] [address] Performed By: #### 2 4323-8, 08309-2 ####[facility] LABCLIA [id number] [place] [address] [place] ALP [Catalytic activity/Vol] 118 U/L High 38-113 [facility] Comment on above: Order Comment: Speci men Type: BLOOD SPECIMENOrdering Facility: [facility] [place] Address: [address] [place] [address] Performed By: #### 2 4323-8, 89613-2 ####[facility] LABCLIA [id number] [place] [address] [place] ALT [Catalytic activity/Vol] 14 U/L Normal 10-54 [facility] Comment on above: Order Comment: Speci men Type: BLOOD SPECIMENOrdering Facility: [facility] [place] Address: [address] [place] [address] Performed By: #### 2 4323-8, 19712-6 ####[facility] LABCLIA [id number] [place] [address] [place] Anion gap [Moles/Vol] 18 mmol/L Normal 9-18 [facility] Comment on above: Order Comment: Speci men Type: BLOOD SPECIMENOrdering Facility: [facility] [place] Address: [address] [place] [address] Performed By: #### 2 4323-8, 64607-7 ####[facility] LABCLIA [id number] [place] [address] [place] AST [Catalytic activity/Vol] 26 U/L Normal 14-40 [facility] Comment on above: Order Comment: Speci men Type: BLOOD SPECIMENOrdering Facility: [facility] [place] Address: [address] [place] [address] Performed By: #### 2 4323-8, 32064-7 ####[facility] LABCLIA [id number] [place] [address] [place] Bilirubin [Mass/Vol] 0.7 mg/dL Normal 0.2-1.3 [facility] Comment on above: Order Comment: Speci men Type: BLOOD SPECIMENOrdering Facility: [facility] [place] Address: [address] [place] [address] Performed By: #### 2 4323-8, 16452-0 ####[facility] LABCLIA [id number] [place] [address] [place] Calcium [Mass/Vol] 10.1 mg/dL Normal 8.5-10.2 [facility] Comment on above: Order Comment: Speci men Type: BLOOD SPECIMENOrdering Facility: [facility] [place] Address: [address] [place] [address] Performed By: #### 2 4323-8, 16086-7 ####[facility] LABCLIA [id number] [place] [address] [place] Chloride [Moles/Vol] 97 mmol/L Normal 97-105 [facility] Comment on above: Order Comment: Speci men Type: BLOOD SPECIMENOrdering Facility: [facility] [place] Address: [address] [place] [address] Performed By: #### 2 4323-8, 48171-8 ####[facility] LABCLIA [id number] [facility] [place] [address] [place] CO2 [Moles/Vol] 25 mmol/L Normal 22-30 [facility] Comment on above: Order Comment: Speci men Type: BLOOD SPECIMENOrdering Facility: [facility] [place] Address: [address] [place] [address] Performed By: #### 2 4323-8, 31050-1 ####[facility] LABCLIA [id number] [address] [place] Creatinine [Mass/Vol] 2.32 mg/dL High 0.73-1.22 [facility] Comment on above: Order Comment: Dylan olvera Type: BLOOD SPECIMENOrdering Facility: [facility] [place] Address: [address] [place] [address] Performed By: #### 2 4323-8, 45480-7 ####[facility] LABIA [id number] [address] Creatinine and Glomerular filtration rate.predicted panel (S/P/Bld) 28 mL/min/1.73m??? Low >=60 [facility] Comment on above: Order Comment: Dylan olvera Type: BLOOD SPECIMENOrdering Facility: [facility] [place] Address: [address] [place] [address] Result Comment: Etta mated Glomerular Filtration Rate [...] reflect actual GFR. Performed By: #### 2 4323-8, 28475-5 ####[facility] LABIA [id number] [place] [address] [place] Glucose [Mass/Vol] 93 mg/dL Normal 74-99 [facility] Comment on above: Order Comment: Dylan olvera Type: BLOOD SPECIMENOrdering Facility: [facility] [place] Address: [address] [place] [address] Result Comment: The [place] [employer] (ADA) provides guidance for cutoff [...] Standards of Medical Care in Diabetes 2016, [place] [employer]. Diabetes Care. 2016.39(Suppl 1). Performed By: #### 2 4323-8, 99674-7 ####[facility] LABCLIA [id number] [place] [address] [place] Potassium [Moles/Vol] 4.1 mmol/L Normal 3.7-5.1 [facility] Comment on above: Order Comment: Speci men Type: BLOOD SPECIMENOrdering Facility: [facility] [place] Address: [address] [place] [address] Performed By: #### 2 4323-8, 59705-9 ####[facility] LABCLIA [id number] [place] [address] [place] Protein [Mass/Vol] 7.4 g/dL Normal 6.3-8.0 [facility] Comment on above: Order Comment: Speci men Type: BLOOD SPECIMENOrdering Facility: [facility] [place] Address: [address] [place] [address] Performed By: #### 2 4323-8, 94196-9 ####[facility] LABCLIA [id number] [place] [address] [place] Sodium [Moles/Vol] 140 mmol/L Normal 136-144 [facility] Comment on above: Order Comment: Speci men Type: BLOOD SPECIMENOrdering Facility: [facility] [place] Address: [address] [place] [address] Performed By: #### 2 4323-8, 88027-5 ####[facility] LABCLIA [id number] [place] [id number] [place] Urea nitrogen [Mass/Vol] 40 mg/dL High 9-24 [facility] Comment on above: Order Comment: Speci men Type: BLOOD SPECIMENOrdering Facility: [facility] [place] Address: [address] [place] [address] Performed By: #### 2 4323-8, 80491-5 ####[facility] LABCLIA [id number] [place] [address] [place] ECG COMPLETEon 12-12-2023 ECG COMPLETE Ventricular Rate : 8 0 BPM Atrial Rate : 80 BPM P-R Interval : 164 ms QRS Duration : 120 ms Q-T Interval : 394 ms QTC Calculation(Bazett) : 454 ms Calculated P Concan : 19 degrees Calculated R Concan : -14 degrees Calculated T Concan : 111 degrees SINUS RHYTHM WITH PREMATURE ATRIAL COMPLEXES WITH ABERRANT CONDUCTION NONSPECIFIC INTRAVENTRICULAR CONDUCTION DELAY ABNORMAL ECG Confirmed by ANTOINETTE HOOKS MD ([id number]) on 12/22/2023 10:13:05 AM NAME : JOSÉ MIGUEL ROTH PID : [id number] : 1940 Gender : Male Race : ORD : [id number] Procedure Date : Dec 12 2023 12:53:15 Edit Date : Dec 22 2023 10:13:07 Diagnosis: SINUS RHYTHM WITH PREMATURE ATRIAL COMPLEXES WITH ABERRANT CONDUCTION NONSPECIFIC INTRAVENTRICULAR CONDUCTION DELAY ABNORMAL ECG Confirmed by ANTOINETTE HOOKS MD ([id number]) on 12/22/2023 10:13:05 AM Test Reason : Location : 314 : J14 J14 Overread By : ANTOINETTE HOOKS MD Edited By : ANTOINETTE HOOKS MD Referred By : , Acquired by : FUENTES REID [facility] ECHOon 12-12-2023 Echocardiography Echocardiography Rep ort: Transthoracic Echo [facility] GOLDIE-2 Date of service: 12/12/2023 11:11:17 AM PAD MECHANIC Ordering physician: VIRGIL CARRILLO Indication: Evaluation of known heart failure to guide therapy Technologist: Cary Hansen Interpreting physician: Wilson Richardson MD PATIENT: Name: MR. JOSÉ MIGUEL ROTH JRTitus : 1940 Age: 83 years Gender: M History of coronary artery disease, myocardial infarction, chronic kidney disease, dyslipidemia and hypertension. Previous cardiovascular interventions: CABG (2011) Dual chamber PPM-ICD (03/24/2019) Primary rhythm: sinus. Secondary rhythm: PVC. Height: 182.90 cm BSA: 2.02 m Weight: 80.29 kg BMI: 24.0 kg/m Heart rate 90 bpm Color Doppler was utilized to interrogate the cardiac valves assessed and spectral Doppler was utilized to determine the flow velocities and pressure gradients reported in this exam. MEASUREMENTS: Value Indexed Normal Max aortic dimension 4.0 cm Ao < 3.8 Left atrial volume 74 ml (biplane A-L) 36 ml/m Colette <= 34 LV ID (diastole) 6.5 cm (2D) 3.21 cm/m LV ID (systole) 6.2 cm (2D) 3.08 cm/m IVS, leaflet tips 0.9 cm (2D) Posterior wall thickness 1.0 cm (2D) Left ventricular mass 266 g (2D) 132 g/m LV stroke volume 40 ml (2D 4-ch.) LV end diastolic volume 265 ml (2D 4-ch.) 131.0 ml/m 34<=EDVi<75 LV end systolic volume 224 ml (2D 4-ch.) 110.9 ml/m Ejection Fraction 15 % (2D 4-ch.) EF > 52 FINDINGS: LEFT VENTRICLE The left ventricle is severely dilated. Left ventricular systolic function is severely decreased. Left ventricular diastolic function was not evaluated due to >2+ MR. Mitral annular lateral E/e': 17.1. Mitral annular septal E/e': 26.9. Definity contrast used for endocardial border detection. Wall Motion: The anterolateral wall, inferior wall, posterior wall, basal anteroseptal segment, and basal inferoseptal segment are akinetic. The entire anterior wall and apical lateral segment are severely hypokinetic. The mid and distal anterior septum, mid inferoseptal segment, apical inferior segment, and apex are mildly hypokinetic. RIGHT VENTRICLE The right ventricle is normal in size. Right ventricular systolic function is low normal. RV systolic tissue Doppler velocity is 12.3 cm/s. Tricuspid annular displacement is 2.0 cm. Estimated right ventricular systolic pressure is 42 mmHg consistent with mild pulmonary hypertension. Estimated right atrial pressure is 3 mmHg based on IVC assessment. LEFT ATRIUM The left atrial cavity is dilated. Pulmonary Veins: The pulmonary venous pattern showed reversed systolic flow. RIGHT ATRIUM The right atrial cavity is normal in size. Inferior Vena Cava: The inferior vena cava appears normal measuring 1.5 cm. The vessel decreases greater than 50 percent with inspiration. MITRAL VALVE There is moderate (2+ - 3+) holosystolic mitral valve regurgitation due to apical tethering of normal mitral leaflet caused by LV enlargement. There is mild thickening. Regurgitant orifice area (PISA) is 0.26 cm . The pressure half time is 42 msec. The peak mitral E/A ratio is 2.35. The average mitral E/e' ratio is 22.0. The mitral flow deceleration time is 145 msec. TRICUSPID VALVE There is mild (1+) tricuspid valve regurgitation. There is no thickening. The hepatic venous pattern showed normal systolic flow. AORTIC VALVE There is trace (trace - 1+) aortic valve regurgitation. Tricuspid aortic valve. There is mild thickening. The peak gradient is 3 mmHg (peak velocity = 90.8 cm/s). PULMONIC VALVE There is trace pulmonic valve regurgitation. There is no thickening. AORTA The visualized aorta is borderline dilated. Measurements - Mid ascending aorta 4.0 cm. Visualized segments of the ascending, arch, and descending aorta without evidence of dissection. PULMONARY ARTERIES The pulmonary arteries are normal. INTERATRIAL SEPTUM There is no evidence of intracardiac shunting as detected by Doppler. INTERVENTRICULAR SEPTUM There is no flow through the interventricular septum as detected by Doppler. PERICARDIUM There is no pericardial effusion. CONCLUSIONS: - Exam indication: Evaluation of known heart failure to guide therapy - The left ventricle is severely dilated. Left ventricular systolic function is severely decreased. EF = 15 5% (2D 4-ch.) Definity contrast used for endocardial border detection. Left ventricular diastolic function was not evaluated due to >2+ MR. - The right ventricle is normal in size. Right ventricular systolic function is low normal. - The left atrial cavity is dilated. - The visualized aorta is borderline dilated with a maximal dimension of 4.0 cm. - There is moderate (2+ - 3+) holosystolic mitral valve regurgitation due to apical tethering of normal mitral leaflet caused by LV enlargement. Regurgitant orifice area (PISA) is 0.26 cm . - Estimated right ve (more content not included)... Normal [facility] NT-proBNP [facility] 12-11 Natriuretic peptide.B prohormone N-Terminal [Mass/Vol] 44627 pg/mL High <450 [facility] Comment on above: Order Comment: Speci men Type: BLOOD SPECIMENOrdering Facility: [facility] [place] Address: [address] [place] [address] Performed By: #### 2 4323-8, 91405-1 ####[facility] IRMA [id number] [place] [address] [place] ICD REMOTE CHECKon 4 AV Delay Adaptive Paced Minimum (ms) 200 ms [facility] AV Delay Adaptive Sensed Minimum (ms) 170 ms [facility] Bj RA Pacing Amplitude (volts) 2.0 V [facility] Bj RA Pacing Polarity BI [facility] Bj RA Pacing Pulse Width (ms) 0.5 ms [facility] Bj RA Sensing Amplitude (mvolts) 0.25 mV [facility] Bj RA Sensing Polarity BI [facility] Bj RV Pacing Amplitude (volts) 2.0 V [facility] Bj RV Pacing Polarity BI [facility] Bj RV Pacing Pulse Width (ms) 0.5 ms [facility] Bj RV Sensing Amplitude (mvolts) 0.3 mV [facility] Bj RV Sensing Polarity BI [facility] Detection Configuration (Vent) 2 - Zone [facility] FastVT_Detection Interval 250 ms [facility] FastVT_Therapy Configuration 1 ATP(s) + 8 Shock(s) [facility] ICD FastVT DetectionStatus ENABLED [facility] ICD-AMS EPISODES 170 {beats}/min [facility] ICD-ATP Episodes (Vent) 0 [facility] ICD-ATRIALFIBRILLAT ION 7 [facility] ICD-ATRIALTACHYCARD IA 7 [facility] ICD-ATRIALTACHYCARD IA 2 [facility] ICD-Device Mfg BSX [facility] ICD-Fast Ventricular Tachycardia 2 [facility] ICD-LEADIMPEDANCEAT RIAL 827 ohm [facility] ICD-Percent Pacing (Atrial) 0 % [facility] ICD-Percent Pacing (Vent) 0 % [facility] ICD-Shocks Aborted (Vent) 0 [facility] [id number] D 0 [facility] ICD-SHOCKSABORTED 0 [facility] ICD-SHOCKSDELIVERED VENTRICULAR 0 [facility] ICD-Ventricular Fibrillation 0 [facility] Lead Impedance (RV) 468 ohm [facility] Lead Impedance High Voltage 60 ohm [facility] Lead1 Mfg BSX [facility] Lead2 Mfg BSX [facility] Location RV [facility] Location RA [facility] Lower Rate (bpm) 50 {beats}/min [facility] Max Sensor Rate (bpm) 130 {beats}/min [facility] MDT_PROG_TACHY_ZONE _DETECTIONS_STATUS ENABLED [facility] Model D142 INOGEN [facility] Model 0675 [place] 4-Front [facility] Model 7741 Ingevity MRI [facility] Pacing Mode DDDR [facility] Serial Number [id number] [facility] Serial Number [id number] [facility] Serial Number [id number] [facility] Test Charge Energy [address] [facility] Test Charge [facility] 10.[facility] Therapy Status (Vent) Enabled [facility] Thresh RA Capture Amplitude (volts) 0.9 V [facility] Thresh RA Capture Duration (ms) 0.5 ms [facility] Thresh RV Capture Amplitude (VOLTS) 0.4 V [facility] Thresh RV Capture Duration (MS) 0.5 ms [facility] Tracking Rate (bpm) 130 {beats}/min [facility] VF Zone Detection Interval 250 ms [facility] VF Zone Therapy Configuration 1 ATP(s) + 8 Shock(s) [facility] No Panel Informationon 12-03 BLANK _ [facility] ICD-ATRIALTACHYCARD IA 0 [facility] ICD-Fast Ventricular Tachycardia 0 [facility] Implant Date 03/24/2019 [facility] 36on 11-26-2023 36 DC to home on 024 Spoke to pt on 11/26/23 Med rec completed with pt Pt aware of follow up appt in [place] on 12/02/23, [facility] DOROTHYN Telephone ([place]IS[place]) JOSÉ MIGUEL ROTH JR. ([id number]) 1940 M Date Time Provider Department 11/26/23 VIRGIL CARRILLO During your visit today, we recorded the following information about you: Nhi Morales 11/26/2023 3:46 PM Signed Patient's daughter called stating patient had been admitted to a hospital in [place] for fluid overload. Patient was given IV Lasix to remove the fluid. Local manager bilingual is planning a Mitral Valve Clip and want him to have the clip done sooner rather than later. Patient is wanting to discuss with Dr. Carrillo before he makes a decision. I advised the daughter, that I would schedule Mr. Roth to see one of our SPECIAL SERVICE REPRESENTATIVE's post discharge, but would also let Dr. Carrillo know that he would like to speak with him regarding the MVR. Daughter understood, and stated that she would get [place] records and images sent to us. Allergies As of Date: 11/26/2023 Noted Allergy Reaction LATEX 03/13/2019 2 - Rash ADHESIVE TAPE (ROSINS) 06/16/2012 2 - Rash Date Reviewed: 10/29/2023 Reviewed by: Jennifer Conway MA - Fully Assessed Reason for Visit: Patient Update [1234] Prescriptions as of 11/26/2023 - furosemide (LASIX) 40 mg tablet Take 40 mg by mouth once daily. - Cholecalciferol, Vitamin D3, 25 mcg (1,000 unit) cap Take 1,000 Units by mouth as needed. - nitroglycerin sublingual (NITROQUICK) 0.4 mg SL tablet as directed. - SPECIAL SERVICE REPRESENTATIVE 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 - aspirin, enteric coated (ASPIRIN, ENTERIC COATED) [...] 40 mg by mouth daily at bedtime. Meds Comments as of 08/04/2012: Medications verbally confirmed. Guy Fair LPN August 04, 2012 Problem List As Of Date 11/26/[address] elevation myocardial infarction (STEMI) of t*04/28/2012 05/05/2012 Atherosclerotic heart disease of [place] coronar* SUMMARY [V999.95] 04/28/2012 Wide-complex tachycardia [R00.0] [...] (coronary artery bypass graft) [Z95.1] 06/17/2012 Sweating [ISW1889] 11/17/2012 CAD (coronary artery disease) of artery bypass *11/17/2012 Systolic heart failure (HCC) [I50.20] 11/17/2012 PVD (peripheral vascular disease) ([facility] [I73.9] 11/17/2012 Prostate cancer ([facility]) [C61] 10/09/2017 10/01/2023 Syncope [R55] 03/18/2019 Stroke (cerebrum) ([facility]) [I63.9] 09/03/2022 Chronic combined systolic and diastolic congest*09/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 Carotid stenosis, asymptomatic, bilateral [I65.*09/03/2022 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 *04/26/2023 Encounter Status:Closed by [facility] on 11/26/23 Normal [facility] BASIC METABOLIC PANELon 03-1 Anion gap [Moles/Vol] 15 mmol/L Normal 7-20 [facility] Comment on above: Performed By: #### L [id number] ####[facility] (BEAKER)[address] [place] [address] Calcium [Mass/Vol] 9.7 mg/dL Normal 8.6-10.3 [facility] Comment on above: Performed By: #### L [id number] ####[facility] ([facility])[address] [place] [address] Chloride [Moles/Vol] 98 mmol/L Normal 98-107 [facility] Comment on above: Performed By: #### L [id number] ####[facility] [place] [address] CO2 [Moles/Vol] 26 mmol/L Normal 21-31 [facility] Comment on above: Performed By: #### L [id number] ####[facility] ([facility] [place] [address] Creatinine [Mass/Vol] 2.09 mg/dL High 0.70-1.30 [facility] Comment on above: Performed By: #### L [id number] ####[facility] ([facility])[address] [place] [address] GLOMERULAR FILTRATION RATE ML/MIN/1.73 SQ M.PREDICTED 31.2 mL/min/1.73m*2 Low >60.0 [facility] Comment on above: Result Comment: [facility]???s estimated glomerular filtration rate (eGFR) will [...] of individuals. Performed By: #### L [id number] ####[facility] ([facility] [place] [address] Glucose [Mass/Vol] 86 mg/dL Normal 70-100 [facility] Comment on above: Performed By: #### L [id number] ####[facility] ([facility])[address] [place] [address] Potassium [Moles/Vol] 3.7 mmol/L Normal 3.5-5.1 [facility] Comment on above: Performed By: #### L [id number] ####[facility] ([facility])[address] [place] [address] Sodium [Moles/Vol] 135 mmol/L Low 136-145 [facility] Comment on above: Performed By: #### L [id number] ####[facility] ([facility])[address] [place] [address] Urea nitrogen [Mass/Vol] 53 mg/dL High 7-25 [facility] Comment on above: Performed By: #### L [id number] ####[facility] ([facility])[address] [place] [address] UREA NITROGEN/CREATININE (MASS RATIO) IN SER/PLAS 25.4 Normal [facility] Comment on above: Performed By: #### L [id number] ####[facility] ([facility])[address] [place] [address] CBC WITH AUTO DIFFERENTIALon 11-25-2023 Basophils (Bld) [#/Vol] 0.05 10*3/uL Normal 0.00-0.20 [facility] Comment on above: Performed By: #### L [id number] ####[facility] ([facility])[address] [place] [address] Basophils/100 WBC (Bld) 0.6 % Normal 0.0-1.0 [facility] Comment on above: Performed By: #### L [id number] ####[facility] ([facility])[address] [place] [address] Eosinophils (Bld) [#/Vol] 0.24 10*3/uL Normal 0.00-0.50 [facility] Comment on above: Performed By: #### L [id number] ####[facility] (BEAKER)[address] [place] [address] Eosinophils/100 WBC (Bld) 2.8 % Normal 0.0-6.0 [facility] Comment on above: Performed By: #### L [id number] ####[facility] (BE[facility]ER)[address] [place] [address] Erythrocyte distribution width (RBC) [Ratio] 14.5 % Normal 11.5-15.0 [facility] Comment on above: Performed By: #### L [id number] ####[facility] ([facility])[address] [place] [address] ERYTHROCYTE MEAN CORPUSCULAR HEMOGLOBIN CONCENTRATION (G/DL) BY AUTOMATED 32.1 g/dL Normal 32.0-35.0 [facility] Comment on above: Performed By: #### L [id number] ####[facility] ([facility])[address] [place] [address] Hematocrit (Bld) [Volume fraction] 46.8 % Normal 39.0-55.0 [facility] Comment on above: Performed By: #### L [id number] ####[facility] ([facility])[address] [place] [address] Hemoglobin (Bld) [Mass/Vol] 15.0 g/dL Normal 13.0-17.0 [facility] Comment on above: Performed By: #### L [id number] ####[facility] [place] [address] Immature granulocytes (Bld) [#/Vol] 0.04 10*3/uL Normal 0.00-0.20 [facility] Comment on above: Performed By: #### L [id number] ####[facility] ([facility]AKER)[address] [place] [address] Immature granulocytes/100 WBC (Bld) 0.5 % Normal 0.0-1.0 [facility] Comment on above: Performed By: #### L [id number] ####[facility] (BEAKER)[address] [place] [address] Lymphocytes (Bld) [#/Vol] 1.49 10*3/uL Normal 1.20-4.00 [facility] Comment on above: Performed By: #### L [id number] ####[facility] ([facility]ER)[address] [place] [address] Lymphocytes/100 WBC (Bld) 17.2 % Low 20.0-45.0 [facility] Comment on above: Performed By: #### L [id number] ####[facility] (BE[facility]ER)[address] [place] [address] MCH (RBC) [Entitic mass] 28.5 pg Normal 27.0-33.0 [facility] Comment on above: Performed By: #### L [id number] ####[facility] ([facility]ER)[address] [place] [address] MCV (RBC) [Entitic vol] 88.8 fL Normal 82.0-98.0 [facility] Comment on above: Performed By: #### L [id number] ####[facility] ([facility]ER)[address] [place] [address] Monocytes (Bld) [#/Vol] 0.81 10*3/uL Normal 0.10-1.00 [facility] Comment on above: Performed By: #### L [id number] ####[facility] (BE[facility]ER)[address] [place] [address] Monocytes/100 WBC (Bld) 9.4 % Normal 5.0-12.0 [facility] Comment on above: Performed By: #### L [id number] ####[facility] ([facility]ER)[address] [place] [address] Neutrophils (Bld) [#/Vol] 6.03 10*3/uL Normal 1.60-7.60 [facility] Comment on above: Performed By: #### L [id number] ####[facility] ([facility]ER)[address] [place] [address] Neutrophils/100 WBC (Bld) 69.5 % Normal 40.0-72.0 [facility] Comment on above: Performed By: #### L [id number] ####[facility] ([facility])[address] [place] [address] NRBC (PER 100 WBCS) BY AUTOMATED COUNT 0.0 % Normal 0 [facility] Comment on above: Performed By: #### L [id number] ####[facility] ([facility])[address] [place] [address] PLATELETS (10*3/UL) IN BLOOD AUTOMATED COUNT 204 10*3/uL Normal 150-400 [facility] Comment on above: Performed By: #### L [id number] ####[facility] ([facility])[address] [place] [address] RBC (Bld) [#/Vol] 5.27 10*6/uL Normal 4.20-5.70 [facility] Comment on above: Performed By: #### L [id number] ####[facility] ([facility])[address] [place] [address] WBC (Bld) [#/Vol] 8.66 10*3/uL Normal 4.00-10.60 [facility] Comment on above: Performed By: #### L [id number] ####[facility] ([facility])[address] [place] [address] DSon 11-25-2023 DS Normal [facility] 30on 11-24-2023 30 Normal [facility] CBC WITH AUTO DIFFERENTIALon 11-24-2023 Basophils (Bld) [#/Vol] 0.05 10*3/uL Normal 0.00-0.20 [facility] Comment on above: Performed By: #### L [id number] ####[facility] ([facility] [place] [address] Basophils/100 WBC (Bld) 0.6 % Normal 0.0-1.0 [facility] Comment on above: Performed By: #### L [id number] ####[facility] ([facility]ER)[address] [place] [address] Eosinophils (Bld) [#/Vol] 0.22 10*3/uL Normal 0.00-0.50 [facility] Comment on above: Performed By: #### L [id number] ####[facility] ([facility]ER)[address] [place] [address] Eosinophils/100 WBC (Bld) 2.5 % Normal 0.0-6.0 [facility] Comment on above: Performed By: #### L [id number] ####[facility] (BE[facility]ER)[address] [place] [address] Erythrocyte distribution width (RBC) [Ratio] 14.6 % Normal 11.5-15.0 [facility] Comment on above: Performed By: #### L [id number] ####[facility] ([facility]ER)[address] [place] [address] ERYTHROCYTE MEAN CORPUSCULAR HEMOGLOBIN CONCENTRATION (G/DL) BY AUTOMATED 32.6 g/dL Normal 32.0-35.0 [facility] Comment on above: Performed By: #### L [id number] ####[facility] ([facility]ER)[address] [place] [address] Hematocrit (Bld) [Volume fraction] 44.8 % Normal 39.0-55.0 [facility] Comment on above: Performed By: #### L [id number] ####[facility] ([facility]ER)[address] [place] [address] Hemoglobin (Bld) [Mass/Vol] 14.6 g/dL Normal 13.0-17.0 [facility] Comment on above: Performed By: #### L [id number] ####[facility] ([facility]ER)[address] [place] [address] Immature granulocytes (Bld) [#/Vol] 0.04 10*3/uL Normal 0.00-0.20 [facility] Comment on above: Performed By: #### L [id number] ####[facility] (BE[facility]ER)[address] [place] [address] Immature granulocytes/100 WBC (Bld) 0.5 % Normal 0.0-1.0 [facility] Comment on above: Performed By: #### L [id number] ####[facility] ([facility] [place] [address] Lymphocytes (Bld) [#/Vol] 1.07 10*3/uL Low 1.20-4.00 [facility] Comment on above: Performed By: #### L [id number] ####[facility] ([facility])[address] [place] [address] Lymphocytes/100 WBC (Bld) 12.3 % Low 20.0-45.0 [facility] Comment on above: Performed By: #### L [id number] ####[facility] ([facility] [place] [address] MCH (RBC) [Entitic mass] 28.7 pg Normal 27.0-33.0 [facility] Comment on above: Performed By: #### L [id number] ####[facility] ([facility] [place] [address] MCV (RBC) [Entitic vol] 88.2 fL Normal 82.0-98.0 [facility] Comment on above: Performed By: #### L [id number] ####[facility] ([facility] [place] [address] Monocytes (Bld) [#/Vol] 0.89 10*3/uL Normal 0.10-1.00 [facility] Comment on above: Performed By: #### L [id number] ####[facility] (BEAKER)[address] [place] [address] Monocytes/100 WBC (Bld) 10.2 % Normal 5.0-12.0 [facility] Comment on above: Performed By: #### L [id number] ####[facility] ([facility]ER)[address] [place] [address] Neutrophils (Bld) [#/Vol] 6.45 10*3/uL Normal 1.60-7.60 [facility] Comment on above: Performed By: #### L [id number] ####[facility] ([facility])[address] [place] [address] Neutrophils/100 WBC (Bld) 73.9 % High 40.0-72.0 [facility] Comment on above: Performed By: #### L [id number] ####[facility] ([facility])[address] [place] [address] NRBC (PER 100 WBCS) BY AUTOMATED COUNT 0.0 % Normal 0 [facility] Comment on above: Performed By: #### L [id number] ####[facility] ([facility])[address] [place] [address] PLATELETS (10*3/UL) IN BLOOD AUTOMATED COUNT 209 10*3/uL Normal 150-400 [facility] Comment on above: Performed By: #### L [id number] ####[facility] ([facility])[address] [place] [address] RBC (Bld) [#/Vol] 5.08 10*6/uL Normal 4.20-5.70 [facility] Comment on above: Performed By: #### L [id number] ####[facility] ([facility])[address] [place] [address] WBC (Bld) [#/Vol] 8.72 10*3/uL Normal 4.00-10.60 [facility] Comment on above: Performed By: #### L [id number] ####[facility] ([facility] [place] [address] COMPREHENSIVE METABOLIC PANE [place] 11-24-2023 Albumin [Mass/Vol] 3.8 g/dL Normal 3.5-5.7 [facility] Comment on above: Performed By: #### L [id number] ####[facility] ([facility] [place] [address] ALP [Catalytic activity/Vol] 92 U/L Normal 34-104 [facility] Comment on above: Performed By: #### L [id number] ####[facility] ([facility]ER)[address] [place] [address] ALT [Catalytic activity/Vol] 12 U/L Normal 7-52 [facility] Comment on above: Performed By: #### L [id number] ####[facility] ([facility]ER)[address] [place] [address] Anion gap [Moles/Vol] 14 mmol/L Normal 7-20 [facility] Comment on above: Performed By: #### L [id number] ####[facility] (BE[facility]ER)[address] [place] [address] AST [Catalytic activity/Vol] 22 U/L Normal 13-39 [facility] Comment on above: Performed By: #### L [id number] ####[facility] (BEAKER)[address] [place] [address] Bilirubin [Mass/Vol] 1.0 mg/dL Normal 0.3-1.0 [facility] Comment on above: Performed By: #### L [id number] ####[facility] (BE[facility]ER)[address] [place] [address] Calcium [Mass/Vol] 9.8 mg/dL Normal 8.6-10.3 [facility] Comment on above: Performed By: #### L [id number] ####[facility] (BE[facility]ER)[address] [place] [address] Chloride [Moles/Vol] 100 mmol/L Normal 98-107 [facility] Comment on above: Performed By: #### L [id number] ####[facility] ([facility])[address] [place] [address] CO2 [Moles/Vol] 24 mmol/L Normal 21-31 [facility] Comment on above: Performed By: #### L [id number] ####[facility] ([facility])[address] [place] [address] Creatinine [Mass/Vol] 2.11 mg/dL High 0.70-1.30 [facility] Comment on above: Performed By: #### L [id number] ####[facility] ([facility])[address] [place] [address] GLOMERULAR FILTRATION RATE ML/MIN/1.73 SQ M.PREDICTED 30.9 mL/min/1.73m*2 Low >60.0 [facility] Comment on above: Result Comment: [facility]???s estimated glomerular filtration rate (eGFR) will [...] group of individuals. Performed By: #### L [id number] ####[facility] ([facility])[address] [place] [address] Glucose [Mass/Vol] 116 mg/dL High 70-100 [facility] Comment on above: Performed By: #### L [id number] ####[facility] ([facility])[address] [place] [address] Potassium [Moles/Vol] 3.4 mmol/L Low 3.5-5.1 [facility] Comment on above: Performed By: #### L [id number] ####[facility] ([facility])[address] [place] [address] Protein [Mass/Vol] 7.3 g/dL Normal 6.0-8.3 [facility] Comment on above: Performed By: #### L [id number] ####[facility] ([facility])[address] [place] [address] Sodium [Moles/Vol] 135 mmol/L Low 136-145 [facility] Comment on above: Performed By: #### L [id number] ####[facility] ([facility])[address] [facility] [place] [address] Urea nitrogen [Mass/Vol] 55 mg/dL High 7-25 [facility] Comment on above: Performed By: #### L [id number] ####[facility] ([facility]ER)[address] [place] [address] UREA NITROGEN/CREATININE (MASS RATIO) IN SER/PLAS 26.1 Normal [facility] Comment on above: Performed By: #### L [id number] ####[facility] ([facility]ER)[address] [place] [address] MAGNESIUMon 11-24-2023 Magnesium [Mass/Vol] 2.4 mg/dL Normal 1.9-2.7 [facility] Comment on above: Performed By: #### L [id number] ####[facility] ([facility]ER)[address] [place] [address] 30on 11-23-2023 30 Normal [facility] 30 Normal [facility] BASIC METABOLIC PANELon Anion gap [Moles/Vol] 15 mmol/L Normal 7-20 [facility] Comment on above: Performed By: #### L [id number] ####[facility] ([facility]ER)[address] [place] [address] Calcium [Mass/Vol] 10.1 mg/dL Normal 8.6-10.3 [facility] Comment on above: Performed By: #### L [id number] ####[facility] ([facility]ER)[address] [place] [address] Chloride [Moles/Vol] 99 mmol/L Normal 98-107 [facility] Comment on above: Performed By: #### L [id number] ####[facility] ([facility]ER)[address] [place] [address] CO2 [Moles/Vol] 25 mmol/L Normal 21-31 [facility] Comment on above: Performed By: #### L [id number] ####[facility] ([facility])[address] [place] [address] Creatinine [Mass/Vol] 2.02 mg/dL High 0.70-1.30 [facility] Comment on above: Performed By: #### L [id number] ####[facility] ([facility])[address] [place] [address] GLOMERULAR FILTRATION RATE ML/MIN/1.73 SQ M.PREDICTED 32.5 mL/min/1.73m*2 Low >60.0 [facility] Comment on above: Result Comment: [facility]???s estimated glomerular filtration rate (eGFR) will [...] of individuals. Performed By: #### L [id number] ####[facility] ([facility])[address] [place] [address] Glucose [Mass/Vol] 103 mg/dL High 70-100 [facility] Comment on above: Performed By: #### L [id number] ####[facility] ([facility])[address] [place] [address] Potassium [Moles/Vol] 3.5 mmol/L Normal 3.5-5.1 [facility] Comment on above: Performed By: #### L [id number] ####[facility] ([facility])[address] [place] [address] Sodium [Moles/Vol] 135 mmol/L Low 136-145 [facility] Comment on above: Performed By: #### L [id number] ####[facility] ([facility])[address] [place] [address] Urea nitrogen [Mass/Vol] 50 mg/dL High 7-25 [facility] Comment on above: Performed By: #### L [id number] ####[facility] ([facility])[address] [place] [address] UREA NITROGEN/CREATININE (MASS RATIO) IN SER/PLAS 24.8 Normal [facility] Comment on above: Performed By: #### L [id number] ####[facility] [place] [address] CBC WITH AUTO DIFFERENTIALon 11-23-2023 Basophils (Bld) [#/Vol] 0.04 10*3/uL Normal 0.00-0.20 [facility] Comment on above: Performed By: #### L [id number] ####[facility] ([facility])[address] [place] [address] Basophils/100 WBC (Bld) 0.4 % Normal 0.0-1.0 [facility] Comment on above: Performed By: #### L [id number] ####[facility] [place] [address] Eosinophils (Bld) [#/Vol] 0.13 10*3/uL Normal 0.00-0.50 [facility] Comment on above: Performed By: #### L [id number] ####[facility] ([facility])[address] [place] [address] Eosinophils/100 WBC (Bld) 1.4 % Normal 0.0-6.0 [facility] Comment on above: Performed By: #### L [id number] ####[facility] [place] [address] Erythrocyte distribution width (RBC) [Ratio] 14.9 % Normal 11.5-15.0 [facility] Comment on above: Performed By: #### L [id number] ####[facility] [place] [address] ERYTHROCYTE MEAN CORPUSCULAR HEMOGLOBIN CONCENTRATION (G/DL) BY AUTOMATED 31.8 g/dL Low 32.0-35.0 [facility] Comment on above: Performed By: #### L [id number] ####[facility] (BEAKER)[address] [place] [address] Hematocrit (Bld) [Volume fraction] 44.6 % Normal 39.0-55.0 [facility] Comment on above: Performed By: #### L [id number] ####[facility] ([facility]ER)[address] [place] [address] Hemoglobin (Bld) [Mass/Vol] 14.2 g/dL Normal 13.0-17.0 [facility] Comment on above: Performed By: #### L [id number] ####[facility] (BEAKER)[address] [place] [address] Immature granulocytes (Bld) [#/Vol] 0.04 10*3/uL Normal 0.00-0.20 [facility] Comment on above: Performed By: #### L [id number] ####[facility] (BEAKER)[address] [place] [address] Immature granulocytes/100 WBC (Bld) 0.4 % Normal 0.0-1.0 [facility] Comment on above: Performed By: #### L [id number] ####[facility] (BEAKER)[address] [place] [address] Lymphocytes (Bld) [#/Vol] 1.04 10*3/uL Low 1.20-4.00 [facility] Comment on above: Performed By: #### L [id number] ####[facility] (BEAKER)[address] [place] [address] Lymphocytes/100 WBC (Bld) 11.3 % Low 20.0-45.0 [facility] Comment on above: Performed By: #### L [id number] ####[facility] (BEAKER)[address] [place] [address] MCH (RBC) [Entitic mass] 28.5 pg Normal 27.0-33.0 [facility] Comment on above: Performed By: #### L [id number] ####[facility] (BEAKER)[address] [place] [address] MCV (RBC) [Entitic vol] 89.6 fL Normal 82.0-98.0 [facility] Comment on above: Performed By: #### L [id number] ####[facility] (BEAKER)[address] [place] [address] Monocytes (Bld) [#/Vol] 0.83 10*3/uL Normal 0.10-1.00 [facility] Comment on above: Performed By: #### L [id number] ####[facility] (BEAKER)[address] [place] [address] Monocytes/100 WBC (Bld) 9.0 % Normal 5.0-12.0 [facility] Comment on above: Performed By: #### L [id number] ####[facility] (BEAKER)[address] [place] [address] Neutrophils (Bld) [#/Vol] 7.12 10*3/uL Normal 1.60-7.60 [facility] Comment on above: Performed By: #### L [id number] ####[facility] (BEAKER)[address] [place] [address] Neutrophils/100 WBC (Bld) 77.5 % High 40.0-72.0 [facility] Comment on above: Performed By: #### L [id number] ####[facility] (BEAKER)[address] [place] [address] NRBC (PER 100 WBCS) BY AUTOMATED COUNT 0.0 % Normal 0 [facility] Comment on above: Performed By: #### L [id number] ####[facility] (BEAKER)[address] [place] [address] PLATELETS (10*3/UL) IN BLOOD AUTOMATED COUNT 212 10*3/uL Normal 150-400 [facility] Comment on above: Performed By: #### L [id number] ####[facility] (BEAKER)[address] [place] [address] RBC (Bld) [#/Vol] 4.98 10*6/uL Normal 4.20-5.70 [facility] Comment on above: Performed By: #### L [id number] ####[facility] (BEAKER)[address] [place] [address] WBC (Bld) [#/Vol] 9.20 10*3/uL Normal 4.00-10.60 [facility] Comment on above: Performed By: #### L [id number] ####[facility] (BEAKER)[address] [place] [address] 30on 11-22-2023 30 Normal [facility] 30 Normal [facility] 30 Normal [facility] BASIC METABOLIC PANELon - Anion gap [Moles/Vol] 15 mmol/L Normal 7-20 [facility] Comment on above: Performed By: #### L [id number] ####[facility] [place] [address] Calcium [Mass/Vol] 9.6 mg/dL Normal 8.6-10.3 [facility] Comment on above: Performed By: #### L [id number] ####[facility] ([facility] [place] [address] Chloride [Moles/Vol] 100 mmol/L Normal 98-107 [facility] Comment on above: Performed By: #### L [id number] ####[facility] (BEAKER)[address] [place] [address] CO2 [Moles/Vol] 26 mmol/L Normal 21-31 [facility] Comment on above: Performed By: #### L [id number] ####[facility] (BEAKER)[address] [place] [address] Creatinine [Mass/Vol] 2.19 mg/dL High 0.70-1.30 [facility] Comment on above: Performed By: #### L [id number] ####[facility] (BEAKER)[address] [place] [address] GLOMERULAR FILTRATION RATE ML/MIN/1.73 SQ M.PREDICTED 29.5 mL/min/1.73m*2 Low >60.0 [facility] Comment on above: Result Comment: [facility]???s estimated glomerular filtration rate (eGFR) will [...] of individuals. Performed By: #### L [id number] ####[facility] ([facility])[address] [place] [address] Glucose [Mass/Vol] 110 mg/dL High 70-100 [facility] Comment on above: Performed By: #### L [id number] ####[facility] ([facility])[address] [place] [address] Potassium [Moles/Vol] 3.4 mmol/L Low 3.5-5.1 [facility] Comment on above: Performed By: #### L [id number] ####[facility] ([facility])[address] [place] [address] Sodium [Moles/Vol] 138 mmol/L Normal 136-145 [facility] Comment on above: Performed By: #### L [id number] ####[facility] ([facility] [place] [address] Urea nitrogen [Mass/Vol] 52 mg/dL High 7-25 [facility] Comment on above: Performed By: #### L [id number] ####[facility] ([facility] [place] [address] UREA NITROGEN/CREATININE (MASS RATIO) IN SER/PLAS 23.7 Normal [facility] Comment on above: Performed By: #### L [id number] ####[facility] ([facility])[address] [place] [address] CBC WITH AUTO DIFFERENTIALon 11-22-2023 Basophils (Bld) [#/Vol] 0.04 10*3/uL Normal 0.00-0.20 [facility] Comment on above: Performed By: #### L [id number] ####[facility] (BEAKER)[address] [place] [address] Basophils/100 WBC (Bld) 0.3 % Normal 0.0-1.0 [facility] Comment on above: Performed By: #### L [id number] ####[facility] (BEAKER)[address] [place] [address] Eosinophils (Bld) [#/Vol] 0.07 10*3/uL Normal 0.00-0.50 [facility] Comment on above: Performed By: #### L [id number] ####[facility] (BEAKER)[address] [place] [address] Eosinophils/100 WBC (Bld) 0.6 % Normal 0.0-6.0 [facility] Comment on above: Performed By: #### L [id number] ####[facility] [place] [address] Erythrocyte distribution width (RBC) [Ratio] 15.2 % High 11.5-15.0 [facility] Comment on above: Performed By: #### L [id number] ####[facility] (BEAKER)[address] [place] [address] ERYTHROCYTE MEAN CORPUSCULAR HEMOGLOBIN CONCENTRATION (G/DL) BY AUTOMATED 32.5 g/dL Normal 32.0-35.0 [facility] Comment on above: Performed By: #### L [id number] ####[facility] (BEAKER)[address] [place] [address] Hematocrit (Bld) [Volume fraction] 41.2 % Normal 39.0-55.0 [facility] Comment on above: Performed By: #### L [id number] ####[facility] (BEAKER)[address] [place] [address] Hemoglobin (Bld) [Mass/Vol] 13.4 g/dL Normal 13.0-17.0 [facility] Comment on above: Performed By: #### L [id number] ####[facility] (BEAKER)[address] [place] [address] Immature granulocytes (Bld) [#/Vol] 0.05 10*3/uL Normal 0.00-0.20 [facility] Comment on above: Performed By: #### L [id number] ####[facility] (BEAKER)[address] [place] [address] Immature granulocytes/100 WBC (Bld) 0.4 % Normal 0.0-1.0 [facility] Comment on above: Performed By: #### L [id number] ####[facility] (BEAKER)[address] [place] [address] Lymphocytes (Bld) [#/Vol] 1.07 10*3/uL Low 1.20-4.00 [facility] Comment on above: Performed By: #### L [id number] ####[facility] (BEAKER)[address] [place] [address] Lymphocytes/100 WBC (Bld) 8.7 % Low 20.0-45.0 [facility] Comment on above: Performed By: #### L [id number] ####[facility] (BEAKER)[address] [place] [address] MCH (RBC) [Entitic mass] 28.7 pg Normal 27.0-33.0 [facility] Comment on above: Performed By: #### L [id number] ####[facility] (BEAKER)[address] [place] [address] MCV (RBC) [Entitic vol] 88.2 fL Normal 82.0-98.0 [facility] Comment on above: Performed By: #### L [id number] ####[facility] (BEAKER)[address] [place] [address] Monocytes (Bld) [#/Vol] 1.09 10*3/uL High 0.10-1.00 [facility] Comment on above: Performed By: #### L [id number] ####[facility] (BEAKER)[address] [place] [address] Monocytes/100 WBC (Bld) 8.9 % Normal 5.0-12.0 [facility] Comment on above: Performed By: #### L [id number] ####[facility] (BEAKER)[address] [place] [address] Neutrophils (Bld) [#/Vol] 9.95 10*3/uL High 1.60-7.60 [facility] Comment on above: Performed By: #### L [id number] ####[facility] (BEAKER)[address] [place] [address] Neutrophils/100 WBC (Bld) 81.1 % High 40.0-72.0 [facility] Comment on above: Performed By: #### L [id number] ####[facility] (BEAKER)[address] [place] [address] NRBC (PER 100 WBCS) BY AUTOMATED COUNT 0.0 % Normal 0 [facility] Comment on above: Performed By: #### L [id number] ####[facility] (BEAKER)[address] [place] [address] PLATELETS (10*3/UL) IN BLOOD AUTOMATED COUNT 196 10*3/uL Normal 150-400 [facility] Comment on above: Performed By: #### L [id number] ####[facility] (BEAKER)[address] [place] [address] RBC (Bld) [#/Vol] 4.67 10*6/uL Normal 4.20-5.70 [facility] Comment on above: Performed By: #### L [id number] ####[facility] (BEAKER)[address] [place] [address] WBC (Bld) [#/Vol] 12.27 10*3/uL High 4.00-10.60 [facility] Comment on above: Performed By: #### L [id number] ####[facility] (BEAKER)[address] [place] [address] 30on 03-07-2024 30 The patient is Moder ately Stable - Low risk of patient condition declining or worsening The patient's goals for the shift include comfort The clinical goals for the shift include stable vitals Normal [facility] 30 Normal [facility] 30 Normal [facility] 30 Normal [facility] BASIC METABOLIC PANELon 03-0 Anion gap [Moles/Vol] 15 mmol/L Normal 7-20 [facility] Comment on above: Performed By: #### L [id number] ####[facility] (BEAKER)[address] [place] [address] Calcium [Mass/Vol] 9.7 mg/dL Normal 8.6-10.3 [facility] Comment on above: Performed By: #### L [id number] ####[facility] (BEAKER)[address] [place] [address] Chloride [Moles/Vol] 100 mmol/L Normal 98-107 [facility] Comment on above: Performed By: #### L [id number] ####[facility] (BEAKER)[address] [place] [address] CO2 [Moles/Vol] 25 mmol/L Normal 21-31 [facility] Comment on above: Performed By: #### L [id number] ####[facility] (BEAKER)[address] [place] [address] Creatinine [Mass/Vol] 2.27 mg/dL High 0.70-1.30 [facility] Comment on above: Performed By: #### L [id number] ####[facility] (BEAKER)[address] [place] [address] GLOMERULAR FILTRATION RATE ML/MIN/1.73 SQ M.PREDICTED 28.3 mL/min/1.73m*2 Low >60.0 [facility] Comment on above: Result Comment: [facility]???s estimated glomerular filtration rate (eGFR) will [...] of individuals. Performed By: #### L [id number] ####[facility] ([facility])[address] [place] [address] Glucose [Mass/Vol] 107 mg/dL High 70-100 [facility] Comment on above: Performed By: #### L [id number] ####[facility] ([facility])[address] [facility] [place] [address] Potassium [Moles/Vol] 3.1 mmol/L Low 3.5-5.1 [facility] Comment on above: Performed By: #### L [id number] ####[facility] ([facility])[address] [facility] [place] [address] Sodium [Moles/Vol] 137 mmol/L Normal 136-145 [facility] Comment on above: Performed By: #### L [id number] ####[facility] ([facility])[address] [facility] [place] [address] Urea nitrogen [Mass/Vol] 50 mg/dL High 7-25 [facility] Comment on above: Performed By: #### L [id number] ####[facility] ([facility])[address] [facility] [place] [address] UREA NITROGEN/CREATININE (MASS RATIO) IN SER/PLAS 22.0 Normal [facility] Comment on above: Performed By: #### L [id number] ####[facility] ([facility])[address] [facility] [place] [address] CBC WITH AUTO DIFFERENTIALon 11-21-2023 Basophils (Bld) [#/Vol] 0.03 10*3/uL Normal 0.00-0.20 [facility] Comment on above: Performed By: #### L [id number] ####[facility] ([facility])[address] [place] [address] Basophils/100 WBC (Bld) 0.2 % Normal 0.0-1.0 [facility] Comment on above: Performed By: #### L [id number] ####[facility] (BEAKER)[address] [place] [address] Eosinophils (Bld) [#/Vol] 0.04 10*3/uL Normal 0.00-0.50 [facility] Comment on above: Performed By: #### L [id number] ####[facility] (BEAKER)[address] [place] [address] Eosinophils/100 WBC (Bld) 0.3 % Normal 0.0-6.0 [facility] Comment on above: Performed By: #### L [id number] ####[facility] (BEAKER)[address] [place] [address] Erythrocyte distribution width (RBC) [Ratio] 15.2 % High 11.5-15.0 [facility] Comment on above: Performed By: #### L [id number] ####[facility] (BEAKER)[address] [place] [address] ERYTHROCYTE MEAN CORPUSCULAR HEMOGLOBIN CONCENTRATION (G/DL) BY AUTOMATED 32.0 g/dL Normal 32.0-35.0 [facility] Comment on above: Performed By: #### L [id number] ####[facility] (BEAKER)[address] [place] [address] Hematocrit (Bld) [Volume fraction] 38.8 % Low 39.0-55.0 [facility] Comment on above: Performed By: #### L [id number] ####[facility] (BEAKER)[address] [place] [address] Hemoglobin (Bld) [Mass/Vol] 12.4 g/dL Low 13.0-17.0 [facility] Comment on above: Performed By: #### L [id number] ####[facility] (BEAKER)[address] [place] [address] Immature granulocytes (Bld) [#/Vol] 0.07 10*3/uL Normal 0.00-0.20 [facility] Comment on above: Performed By: #### L [id number] ####[facility] (BEAKER)[address] [place] [address] Immature granulocytes/100 WBC (Bld) 0.5 % Normal 0.0-1.0 [facility] Comment on above: Performed By: #### L [id number] ####[facility] (BEAKER)[address] [place] [address] Lymphocytes (Bld) [#/Vol] 0.84 10*3/uL Low 1.20-4.00 [facility] Comment on above: Performed By: #### L [id number] ####[facility] (BEAKER)[address] [place] [address] Lymphocytes/100 WBC (Bld) 6.2 % Low 20.0-45.0 [facility] Comment on above: Performed By: #### L [id number] ####[facility] (BEAKER)[address] [place] [address] MCH (RBC) [Entitic mass] 28.9 pg Normal 27.0-33.0 [facility] Comment on above: Performed By: #### L [id number] ####[facility] (BEAKER)[address] [place] [address] MCV (RBC) [Entitic vol] 90.4 fL Normal 82.0-98.0 [facility] Comment on above: Performed By: #### L [id number] ####[facility] (BEAKER)[address] [place] [address] Monocytes (Bld) [#/Vol] 1.00 10*3/uL Normal 0.10-1.00 [facility] Comment on above: Performed By: #### L [id number] ####[facility] (BEAKER)[address] [place] [address] Monocytes/100 WBC (Bld) 7.4 % Normal 5.0-12.0 [facility] Comment on above: Performed By: #### L [id number] ####[facility] ([facility])[address] [place] [address] Neutrophils (Bld) [#/Vol] 11.61 10*3/uL High 1.60-7.60 [facility] Comment on above: Performed By: #### L [id number] ####[facility] ([facility])[address] [place] [address] Neutrophils/100 WBC (Bld) 85.4 % High 40.0-72.0 [facility] Comment on above: Performed By: #### L [id number] ####[facility] ([facility])[address] [place] [address] NRBC (PER 100 WBCS) BY AUTOMATED COUNT 0.0 % Normal 0 [facility] Comment on above: Performed By: #### L [id number] ####[facility] ([facility])[address] [place] [address] PLATELETS (10*3/UL) IN BLOOD AUTOMATED COUNT 176 10*3/uL Normal 150-400 [facility] Comment on above: Performed By: #### L [id number] ####[facility] ([facility])[address] [place] [address] RBC (Bld) [#/Vol] 4.29 10*6/uL Normal 4.20-5.70 [facility] Comment on above: Performed By: #### L [id number] ####[facility] ([facility])[address] [place] [address] WBC (Bld) [#/Vol] 13.59 10*3/uL High 4.00-10.60 [facility] Comment on above: Performed By: #### L [id number] ####[facility] ([facility])[address] [place] [address] MAGNESIUMon 11-21-2023 Magnesium [Mass/Vol] 2.3 mg/dL Normal 1.9-2.7 [facility] Comment on above: Performed By: #### L [id number] ####[facility] (BEAKER)[address] [place] [address] 30on 11-20-2023 30 Normal [facility] 30 Normal [facility] BASIC METABOLIC PANELon 03-0 Anion gap [Moles/Vol] 15 mmol/L Normal 7-20 [facility] Comment on above: Performed By: #### L [id number] ####[facility] [place] [address] Calcium [Mass/Vol] 9.4 mg/dL Normal 8.6-10.3 [facility] Comment on above: Performed By: #### L [id number] ####[facility] ([facility] [place] [address] Chloride [Moles/Vol] 101 mmol/L Normal 98-107 [facility] Comment on above: Performed By: #### L [id number] ####[facility] ([facility] [place] [address] CO2 [Moles/Vol] 26 mmol/L Normal 21-31 [facility] Comment on above: Performed By: #### L [id number] ####[facility] ([facility] [place] [address] Creatinine [Mass/Vol] 2.47 mg/dL High 0.70-1.30 [facility] Comment on above: Performed By: #### L [id number] ####[facility] ([facility] [facility] [place] [address] GLOMERULAR FILTRATION RATE ML/MIN/1.73 SQ M.PREDICTED 25.5 mL/min/1.73m*2 Low >60.0 [facility] Comment on above: Result Comment: [facility]???s estimated glomerular filtration rate (eGFR) will [...] of individuals. Performed By: #### L [id number] ####[facility] ([facility])[address] [place] [address] Glucose [Mass/Vol] 125 mg/dL High 70-100 [facility] Comment on above: Performed By: #### L [id number] ####[facility] ([facility])[address] [place] [address] Potassium [Moles/Vol] 3.5 mmol/L Normal 3.5-5.1 [facility] Comment on above: Performed By: #### L [id number] ####[facility] ([facility])[address] [place] [address] Sodium [Moles/Vol] 138 mmol/L Normal 136-145 [facility] Comment on above: Performed By: #### L [id number] ####[facility] ([facility])[address] [place] [address] Urea nitrogen [Mass/Vol] 52 mg/dL High 7-25 [facility] Comment on above: Performed By: #### L [id number] ####[facility] ([facility])[address] [place] [address] UREA NITROGEN/CREATININE (MASS RATIO) IN SER/PLAS 21.1 Normal [facility] Comment on above: Performed By: #### L [id number] ####[facility] ([facility])[address] [place] [address] Anion gap [Moles/Vol] 14 mmol/L Normal 7-20 [facility] Comment on above: Performed By: #### L [id number] ####[facility] ([facility])[address] [place] [address] Calcium [Mass/Vol] 9.4 mg/dL Normal 8.6-10.3 [facility] Comment on above: Performed By: #### L [id number] ####[facility] (BEAKER)[address] [place] [address] Chloride [Moles/Vol] 102 mmol/L Normal 98-107 [facility] Comment on above: Performed By: #### L [id number] ####[facility] [place] [address] CO2 [Moles/Vol] 25 mmol/L Normal 21-31 [facility] Comment on above: Performed By: #### L [id number] ####[facility] ([facility] [place] [address] Creatinine [Mass/Vol] 2.43 mg/dL High 0.70-1.30 [facility] Comment on above: Performed By: #### L [id number] ####[facility] ([facility])[address] [place] [address] GLOMERULAR FILTRATION RATE ML/MIN/1.73 SQ M.PREDICTED 26.1 mL/min/1.73m*2 Low >60.0 [facility] Comment on above: Result Comment: [facility]???s estimated glomerular filtration rate (eGFR) will [...] of individuals. Performed By: #### L [id number] ####[facility] [place] [address] Glucose [Mass/Vol] 143 mg/dL High 70-100 [facility] Comment on above: Performed By: #### L [id number] ####[facility] [place] [address] Potassium [Moles/Vol] 3.9 mmol/L Normal 3.5-5.1 [facility] Comment on above: Performed By: #### L [id number] ####[facility] (BEAKER)[address] [place] [address] Sodium [Moles/Vol] 137 mmol/L Normal 136-145 [facility] Comment on above: Performed By: #### L [id number] ####[facility] ([facility]AKER)[address] [place] [address] Urea nitrogen [Mass/Vol] 47 mg/dL High 7-25 [facility] Comment on above: Performed By: #### L [id number] ####[facility] ([facility]ER)[address] [place] [address] UREA NITROGEN/CREATININE (MASS RATIO) IN SER/PLAS 19.3 Normal [facility] Comment on above: Performed By: #### L [id number] ####[facility] (BEAKER)[address] [place] [address] Anion gap [Moles/Vol] 14 mmol/L Normal 7-20 [facility] Comment on above: Performed By: #### L [id number] ####[facility] ([facility]ER)[address] [place] [address] Calcium [Mass/Vol] 9.4 mg/dL Normal 8.6-10.3 [facility] Comment on above: Performed By: #### L [id number] ####[facility] (BEAKER)[address] [place] [address] Chloride [Moles/Vol] 103 mmol/L Normal 98-107 [facility] Comment on above: Performed By: #### L [id number] ####[facility] (BEAKER)[address] [place] [address] CO2 [Moles/Vol] 24 mmol/L Normal 21-31 [facility] Comment on above: Performed By: #### L [id number] ####[facility] (BEAKER)[address] [place] [address] Creatinine [Mass/Vol] 2.36 mg/dL High 0.70-1.30 [facility] Comment on above: Performed By: #### L [id number] ####[facility] ([facility])[address] [place] [address] GLOMERULAR FILTRATION RATE ML/MIN/1.73 SQ M.PREDICTED 27.0 mL/min/1.73m*2 Low >60.0 [facility] Comment on above: Result Comment: [facility]???s estimated glomerular filtration rate (eGFR) will [...] of individuals. Performed By: #### L [id number] ####[facility] ([facility])[address] [place] [address] Glucose [Mass/Vol] 153 mg/dL High 70-100 [facility] Comment on above: Performed By: #### L [id number] ####[facility] ([facility])[address] [place] [address] Potassium [Moles/Vol] 3.7 mmol/L Normal 3.5-5.1 [facility] Comment on above: Performed By: #### L [id number] ####[facility] ([facility])[address] [place] [address] Sodium [Moles/Vol] 137 mmol/L Normal 136-145 [facility] Comment on above: Performed By: #### L [id number] ####[facility] ([facility])[address] [place] [address] Urea nitrogen [Mass/Vol] 46 mg/dL High 7-25 [facility] Comment on above: Performed By: #### L [id number] ####[facility] ([facility])[address] [place] [address] UREA NITROGEN/CREATININE (MASS RATIO) IN SER/PLAS 19.5 Normal [facility] Comment on above: Performed By: #### L [id number] ####[facility] [place] [address] CBC WITH AUTO DIFFERENTIALon 11-20-2023 Basophils (Bld) [#/Vol] 0.02 10*3/uL Normal 0.00-0.20 [facility] Comment on above: Performed By: #### L [id number] ####[facility] ([facility])[address] [place] [address] Basophils/100 WBC (Bld) 0.1 % Normal 0.0-1.0 [facility] Comment on above: Performed By: #### L [id number] ####[facility] ([facility])[address] [place] [address] Eosinophils (Bld) [#/Vol] 0.00 10*3/uL Normal 0.00-0.50 [facility] Comment on above: Performed By: #### L [id number] ####[facility] ([facility] [place] [address] Eosinophils/100 WBC (Bld) 0.0 % Normal 0.0-6.0 [facility] Comment on above: Performed By: #### L [id number] ####[facility] [place] [address] Erythrocyte distribution width (RBC) [Ratio] 15.1 % High 11.5-15.0 [facility] Comment on above: Performed By: #### L [id number] ####[facility] [place] [address] ERYTHROCYTE MEAN CORPUSCULAR HEMOGLOBIN CONCENTRATION (G/DL) BY AUTOMATED 32.4 g/dL Normal 32.0-35.0 [facility] Comment on above: Performed By: #### L [id number] ####[facility] ([facility])[address] [place] [address] Hematocrit (Bld) [Volume fraction] 35.8 % Low 39.0-55.0 [facility] Comment on above: Performed By: #### L [id number] ####[facility] ([facility])[address] [place] [address] Hemoglobin (Bld) [Mass/Vol] 11.6 g/dL Low 13.0-17.0 [facility] Comment on above: Performed By: #### L [id number] ####[facility] [place] [address] Immature granulocytes (Bld) [#/Vol] 0.11 10*3/uL Normal 0.00-0.20 [facility] Comment on above: Performed By: #### L [id number] ####[facility] ([facility])[address] [place] [address] Immature granulocytes/100 WBC (Bld) 0.8 % Normal 0.0-1.0 [facility] Comment on above: Performed By: #### L [id number] ####[facility] [place] [address] Lymphocytes (Bld) [#/Vol] 0.59 10*3/uL Low 1.20-4.00 [facility] Comment on above: Performed By: #### L [id number] ####[facility] ([facility])[address] [place] [address] Lymphocytes/100 WBC (Bld) 4.2 % Low 20.0-45.0 [facility] Comment on above: Performed By: #### L [id number] ####[facility] ([facility])[address] [place] [address] MCH (RBC) [Entitic mass] 29.5 pg Normal 27.0-33.0 [facility] Comment on above: Performed By: #### L [id number] ####[facility] ([facility])[address] [place] [address] MCV (RBC) [Entitic vol] 91.1 fL Normal 82.0-98.0 [facility] Comment on above: Performed By: #### L [id number] ####[facility] ([facility])[address] [place] [address] Monocytes (Bld) [#/Vol] 0.85 10*3/uL Normal 0.10-1.00 [facility] Comment on above: Performed By: #### L [id number] ####[facility] ([facility])[address] [place] [address] Monocytes/100 WBC (Bld) 6.0 % Normal 5.0-12.0 [facility] Comment on above: Performed By: #### L [id number] ####[facility] ([facility])[address] [place], [place] [address] Neutrophils (Bld) [#/Vol] 12.57 10*3/uL High 1.60-7.60 [facility] Comment on above: Performed By: #### L [id number] ####[facility] ([facility])[address] [place], [place] [address] Neutrophils/100 WBC (Bld) 88.9 % High 40.0-72.0 [facility] Comment on above: Performed By: #### L [id number] ####[facility] ([facility])[address] [place], [place] [address] NRBC (PER 100 WBCS) BY AUTOMATED COUNT 0.0 % Normal 0 [facility] Comment on above: Performed By: #### L [id number] ####[facility] ([facility])[address], [place] [address] PLATELETS (10*3/UL) IN BLOOD AUTOMATED COUNT 159 10*3/uL Normal 150-400 [facility] Comment on above: Performed By: #### L [id number] ####[facility] ([facility])[address], [place] [address] RBC (Bld) [#/Vol] 3.93 10*6/uL Low 4.20-5.70 [facility] Comment on above: Performed By: #### L [id number] ####[facility] ([facility])[address] [place] [address] WBC (Bld) [#/Vol] 14.14 10*3/uL High 4.00-10.60 [facility] Comment on above: Performed By: #### L [id number] ####[facility] ([facility])[address] [place] [address] CONSULTon 11-20-2023 CONSULT Normal [facility] CREATININE, URINE, RANDOMon 11-20-2023 Creatinine (U) [Mass/Vol] 63.0 mg/dL Normal 26-299 [facility] Comment on above: Performed By: #### L [id number] ####[facility] ([facility])[address] [place] [address] MAGNESIUMon 11-20-2023 Magnesium [Mass/Vol] 2.2 mg/dL Normal 1.9-2.7 [facility] Comment on above: Performed By: #### L [id number] ####[facility] ([facility])[address] [place] [address] PROTEIN, URINE, RANDOMon Protein (U) [Mass/Vol] 12.0 mg/dL Normal [facility] Comment on above: Result Comment: Ther e are no established reference values for random urine specimens. Performed By: #### L [id number] ####[facility] ([facility])[address] [place] [address] URINALYSIS WITH REFLEX CULTU REon 11-20-2023 BILIRUBIN, TOTAL PRESENCE IN URINE Negative Normal Negative [facility] Comment on above: Order Comment: Micro scopics not performed on urines with negative chemical reactions unless requested on original order. Performed By: #### L [id number] ####[facility] ([facility])[address] [place] [address] Clarity (U) Clear Normal Clear [facility] Comment on above: Order Comment: Micro scopics not performed on urines with negative chemical reactions unless requested on original order. Performed By: #### L [id number] ####[facility] ([facility])[address] [place] [address] Color (U) Straw Abnormal Yellow [facility] Comment on above: Order Comment: Micro scopics not performed on urines with negative chemical reactions unless requested on original order. Performed By: #### L [id number] ####[facility] ([facility])[address] [place] [address] Glucose (U) [Mass/Vol] 150 mg/dL Abnormal Negative [facility] Comment on above: Order Comment: Micro scopics not performed on urines with negative chemical reactions unless requested on original order. Performed By: #### L [id number] ####[facility] ([facility])[address] [place] [address] HEMOGLOBIN PRESENCE IN URINE Negative Normal Negative [facility] Comment on above: Order Comment: Micro scopics not performed on urines with negative chemical reactions unless requested on original order. Performed By: #### L [id number] ####[facility] ([facility])[address] [place] [address] Ketones Ql (U) Negative Normal Negative [facility] Comment on above: Order Comment: Micro scopics not performed on urines with negative chemical reactions unless requested on original order. Performed By: #### L [id number] ####[facility] ([facility])[address] [place] [address] LEUKOCYTE ESTERASE PRESENCE IN URINE BY TEST STRIP Negative Normal Negative [facility] Comment on above: Order Comment: Micro scopics not performed on urines with negative chemical reactions unless requested on original order. Performed By: #### L [id number] ####[facility] ([facility])[address] [place] [address] NITRITE PRESENCE IN URINE Negative Normal Negative [facility] Comment on above: Order Comment: Micro scopics not performed on urines with negative chemical reactions unless requested on original order. Performed By: #### L [id number] ####[facility] [place] [address] pH (U) 5.0 [pH] Normal 5.0-8.0 [facility] Comment on above: Order Comment: Micro scopics not performed on urines with negative chemical reactions unless requested on original order. Performed By: #### L [id number] ####[facility] ([facility])[address] [place] [address] Protein (U) [Mass/Vol] Negative Normal Negative [facility] Comment on above: Order Comment: Micro scopics not performed on urines with negative chemical reactions unless requested on original order. Performed By: #### L [id number] ####[facility] ([facility])[address] [place] [address] Specific gravity (U) [Rel density] 1.011 Low 1.015-1.020 [facility] Comment on above: Order Comment: Micro scopics not performed on urines with negative chemical reactions unless requested on original order. Performed By: #### L [id number] ####[facility] ([facility])[address] [place] [address] 30on 11-19-2023 30 Normal [facility] ANESon 11-19-2023 ANES Normal [facility] B-TYPE NATRIURETIC PEPTIDEon 11-19-2023 Natriuretic peptide B (Bld) [Mass/Vol] 1747 pg/mL High 0-100 [facility] Comment on above: Performed By: #### L [id number] ####[facility] ([facility])[address] [place] [address] BASIC METABOLIC PANELon Anion gap [Moles/Vol] 16 mmol/L Normal 7-20 [facility] Comment on above: Performed By: #### L [id number] ####[facility] ([facility])[address] [facility] [place] [address] Calcium [Mass/Vol] 9.6 mg/dL Normal 8.6-10.3 [facility] Comment on above: Performed By: #### L [id number] ####[facility] ([facility])[address] [place] [address] Chloride [Moles/Vol] 103 mmol/L Normal 98-107 [facility] Comment on above: Performed By: #### L [id number] ####[facility] ([facility])[address] [place] [address] CO2 [Moles/Vol] 22 mmol/L Normal 21-31 [facility] Comment on above: Performed By: #### L [id number] ####[facility] [place] [address] Creatinine [Mass/Vol] 2.13 mg/dL High 0.70-1.30 [facility] Comment on above: Performed By: #### L [id number] ####[facility] ([facility] [place] [address] GLOMERULAR FILTRATION RATE ML/MIN/1.73 SQ M.PREDICTED 30.5 mL/min/1.73m*2 Low >60.0 [facility] Comment on above: Result Comment: [facility]???s estimated glomerular filtration rate (eGFR) will [...] of individuals. Performed By: #### L [id number] ####[facility] ([facility] [place] [address] Glucose [Mass/Vol] 118 mg/dL High 70-100 [facility] Comment on above: Performed By: #### L [id number] ####[facility] ([facility])[address] [place] [address] Potassium [Moles/Vol] 4.4 mmol/L Normal 3.5-5.1 [facility] Comment on above: Performed By: #### L [id number] ####[facility] ([facility])[address] [place] [address] Sodium [Moles/Vol] 137 mmol/L Normal 136-145 [facility] Comment on above: Performed By: #### L [id number] ####[facility] ([facility])[address] [place] [address] Urea nitrogen [Mass/Vol] 41 mg/dL High 7-25 [facility] Comment on above: Performed By: #### L [id number] ####[facility] ([facility])[address] [place] [address] UREA NITROGEN/CREATININE (MASS RATIO) IN SER/PLAS 19.2 Normal [facility] Comment on above: Performed By: #### L [id number] ####[facility] ([facility])[address] [place] [address] CBC WITH AUTO DIFFERENTIALon 11-19-2023 Basophils (Bld) [#/Vol] 0.04 10*3/uL Normal 0.00-0.20 [facility] Comment on above: Performed By: #### L [id number] ####[facility] ([facility])[address] [place] [address] Basophils/100 WBC (Bld) 0.5 % Normal 0.0-1.0 [facility] Comment on above: Performed By: #### L [id number] ####[facility] ([facility])[address] [place] [address] Eosinophils (Bld) [#/Vol] 0.03 10*3/uL Normal 0.00-0.50 [facility] Comment on above: Performed By: #### L [id number] ####[facility] ([facility])[address] [place] [address] Eosinophils/100 WBC (Bld) 0.4 % Normal 0.0-6.0 [facility] Comment on above: Performed By: #### L [id number] ####[facility] ([facility])[address] [place] [address] Erythrocyte distribution width (RBC) [Ratio] 15.3 % High 11.5-15.0 [facility] Comment on above: Performed By: #### L [id number] ####[facility] ([facility])[address] [place] [address] ERYTHROCYTE MEAN CORPUSCULAR HEMOGLOBIN CONCENTRATION (G/DL) BY AUTOMATED 31.8 g/dL Low 32.0-35.0 [facility] Comment on above: Performed By: #### L [id number] ####[facility] ([facility])[address] [place] [address] Hematocrit (Bld) [Volume fraction] 39.0 % Normal 39.0-55.0 [facility] Comment on above: Performed By: #### L [id number] ####[facility] ([facility])[address] [place] [address] Hemoglobin (Bld) [Mass/Vol] 12.4 g/dL Low 13.0-17.0 [facility] Comment on above: Performed By: #### L [id number] ####[facility] ([facility])[address] [place] [address] Immature granulocytes (Bld) [#/Vol] 0.03 10*3/uL Normal 0.00-0.20 [facility] Comment on above: Performed By: #### L [id number] ####[facility] ([facility])[address] [place] [address] Immature granulocytes/100 WBC (Bld) 0.4 % Normal 0.0-1.0 [facility] Comment on above: Performed By: #### L [id number] ####[facility] ([facility])[address] [place] [address] Lymphocytes (Bld) [#/Vol] 1.02 10*3/uL Low 1.20-4.00 [facility] Comment on above: Performed By: #### L [id number] ####[facility] ([facility])[address] [place] [address] Lymphocytes/100 WBC (Bld) 12.1 % Low 20.0-45.0 [facility] Comment on above: Performed By: #### L [id number] ####[facility] ([facility])[address] [place] [address] MCH (RBC) [Entitic mass] 29.0 pg Normal 27.0-33.0 [facility] Comment on above: Performed By: #### L [id number] ####[facility] ([facility])[address] [place] [address] MCV (RBC) [Entitic vol] 91.3 fL Normal 82.0-98.0 [facility] Comment on above: Performed By: #### L [id number] ####[facility] ([facility])[address] [place] [address] Monocytes (Bld) [#/Vol] 0.45 10*3/uL Normal 0.10-1.00 [facility] Comment on above: Performed By: #### L [id number] ####[facility] ([facility])[address] [place] [address] Monocytes/100 WBC (Bld) 5.3 % Normal 5.0-12.0 [facility] Comment on above: Performed By: #### L [id number] ####[facility] ([facility])[address], [place] [address] Neutrophils (Bld) [#/Vol] 6.88 10*3/uL Normal 1.60-7.60 [facility] Comment on above: Performed By: #### L [id number] ####[facility] ([facility])[address] [place] [address] Neutrophils/100 WBC (Bld) 81.3 % High 40.0-72.0 [facility] Comment on above: Performed By: #### L [id number] ####[facility] ([facility])[address] [place] [address] NRBC (PER 100 WBCS) BY AUTOMATED COUNT 0.0 % Normal 0 [facility] Comment on above: Performed By: #### L [id number] ####[facility] [place] [address] PLATELETS (10*3/UL) IN BLOOD AUTOMATED COUNT 167 10*3/uL Normal 150-400 [facility] Comment on above: Performed By: #### L [id number] ####[facility] ([facility])[address] [place] [address] RBC (Bld) [#/Vol] 4.27 10*6/uL Normal 4.20-5.70 [facility] Comment on above: Performed By: #### L [id number] ####[facility] ([facility])[address] [place] [address] WBC (Bld) [#/Vol] 8.45 10*3/uL Normal 4.00-10.60 [facility] Comment on above: Performed By: #### L [id number] ####[facility] ([facility])[address] [place] [address] CONSULTon 11-19-2023 CONSULT [facility] HPon 11-19-2023 HP [facility] HP H&P reviewed. The hyacinth cordero was examined and there are no changes to the H&P. [facility] NURSNOTEon 11-19-2023 NURSNOTE Family took patient' s wallet home. [facility] NURSNOTE Report called to Venessa lui RN, RN verbalized understanding. [facility] POCT GLUCOSE METER UNSOLICIT ED RESULTSon 11-19-2023 Glucose [Mass/Vol] 103 mg/dL Normal 70-105 [facility] Comment on above: Order Comment: Waive d Testing in the ED is performed under the ED CLIA certificate #[id number]. Result Comment: [email or web address] Performed By: #### L [id number] ####[facility] ([facility])[address] [place] [address] HPon 11-18-2023 [facility] 36on 11-14-2023 36 Patient calling want ing to know if he should resume Farxiga and/or lisinopril. He just had labs yesterday and he's got an apt with you on Saturday. Thanks. [facility] 3611-06-2023 36 Normal [facility] 36on 10-31-2023 36 [facility] Telephoneon 10-31-2023 Telephone [facility] CNOVon 10-29-2023 CNOV Office Visit ([facility] ) JOSÉ MIGUEL ROTH ([id number]) 1940 M Date Time Provider Department 10/29/23 11:30 AM VIRGIL CARRILLO During your visit today, we recorded the following information about you: Pulse Respiration Blood pressure Weight 72/minute 12/minute 108/62 80.3 kg Height 1.829 m Virgil Carrillo MD 10/30/2023 9:23 AM Signed [facility] Martin [facility] Department of Cardiovascular Medicine SECTION OF CARDIOVASCULAR IMAGING OUTPATIENT VISIT DATE October 30, 2023 OUTPATIENT VISIT TYPE ESTABLISHED PRIMARY CARE PHYSICIAN: Francisca Thompson [facility] [place] [address] REFERRING PHYSICIAN: Tiarra Lopez [address] [place] [address] CHIEF COMPLAINT: Follow up HISTORY OF PRESENT ILLNESS: Mr. Roth is a 83 year old male who presents today for follow-up visit. Previously followed up by Dr. Andreas Del Cid. Past medical history includes but is not limited to: Ischemic cardiomyopathy LVEF approximately 20% Secondary mitral regurgitation Coronary artery disease, s/p CABG x 3 (OTTO to LAD, SVG to PDA, SVG to OM) in 2005, last coronary angiography in 2021 showed patent OTTO to LAD and SVG to OM, and occluded SVG to PDA Ventricular tachycardia, ICD Peripheral artery disease Ischemic stroke, tPA August 2021, prescribed Eliquis, subsequently staged CKD stage IIIb Hypertension Recent admission for a couple days in September with increasing congestion mainly in his abdomen requiring intravenous diuresis. This seems to have been triggered after stopping procedure because of concern of his kidney disease Stable weight 177 pounds. Controls what he eats and drinks carefully. Now has NYHA II bordering III symptoms. Able to walk from the car park to the clinic today slowly but without stopping. 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 ([facility] 09/03/2022 Dyslipidemia GERD (gastroesophageal reflux disease) Heart failure, acute systolic ([facility]) Hypertension Hypothyroid Myocardial infarct, old Occlusion and stenosis of carotid artery without mention of cerebral infarction Prostate cancer ([facility]) 2020 PVD (peripheral vascular disease) ([facility]) 11/17/2012 Stroke (cerebrum) ([facility]) 09/03/2022 Systolic heart failure ([facility]) Thyroid disorder 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 kidney disease, unspecified CKD stage, unspecified whether care home insulin use ([facility]) 04/26/2023 Ventricular tachycardia ([facility]) 04/28/2012 PAST SURGICAL HISTORY [...] Pipe Quit date: 04/28/1982 Years since quittin.5 Passive exposure: Never Smokeless tobacco: Never Vaping Use Vaping Use: Never used Substance Use Topics Alcohol use: Yes Comment: rarely Drug use: Never FAMILY HISTORY Problem Relation Age of Onset other (atrial fibrillation) Mother other (CHF) Mother other (Other) Mother at age 96 Coronary Artery Disease Father Heart Attack Father fatal CT at age 77 Ischemic Heart Disease Brother CABGx6 first at age 72 No Known Problems Maternal Grandmother No Known Problems Maternal Grandfather No Known Problems Paternal Grandmother No Known Problems Paternal Grandfather No Known Problems Daughter No Known Problems Daughter No Known Problems Daughter other (Other) Other paternal cousin at age [address] ALLERGIES: ALLERGIES Allergen Reactions Latex Rash Adhesive Tape (Keyanna* Rash MEDICATIONS: furosemide (LASIX) 40 mg tablet Take 40 mg by mouth once daily. Cholecalciferol, Vitamin D3, 25 mcg (1,000 unit) cap Take 1,000 Units by mouth as needed. nitroglycerin sublingual (NITROQUICK) 0.4 mg SL tablet as directed. SPECIAL SERVICE REPRESENTATIVE 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 aspirin, enteric coated (ASPIRIN, ENTERIC COATED) 81 mg EC tablet Take 1 tablet by mouth once daily. ezetimibe (ZETIA) 10 mg tablet Take 10 mg by mouth once daily. metoprolol succinate ER (TOPROL XL) 25 mg 24 hr tablet Take 1 tablet by mouth once daily. ubidecarenone Q-10 (COENZYME Q-10) 10 mg cap Take 10 mg by mouth once david (more content not included)... Normal [facility] ECG COMPLETEon 10-29-2023 ECG COMPLETE Ventricular Rate : 7 9 BPM Atrial Rate : 79 BPM P-R Interval : 212 ms QRS Duration : 120 ms Q-T Interval : 418 ms QTC Calculation(Bazett) : 479 ms Calculated P Concan : 61 degrees Calculated R Concan : -9 degrees Calculated T Concan : 131 degrees SINUS RHYTHM WITH 1ST DEGREE AV BLOCK WITH FREQUENT PREMATURE VENTRICULAR COMPLEXES MINIMAL VOLTAGE CRITERIA FOR LVH, MAY BE NORMAL VARIANT ( Leander product ) NONSPECIFIC INTRAVENTRICULAR BLOCK ABNORMAL ECG Confirmed by ANAM LUTZ MD ([id number]) on 11/21/2023 10:12:55 AM NAME : JOSÉ MIGUEL ROTH PID : [id number] : 1940 Gender : Male Race : ORD : [id number] Procedure Date : Oct 29 2023 11:01:07 Edit Date : Nov 21 2023 10:12:58 Diagnosis: SINUS RHYTHM WITH 1ST DEGREE AV BLOCK WITH FREQUENT PREMATURE VENTRICULAR COMPLEXES MINIMAL VOLTAGE CRITERIA FOR LVH, MAY BE NORMAL VARIANT ( Robert product ) NONSPECIFIC INTRAVENTRICULAR BLOCK ABNORMAL ECG Confirmed by ANAM LUTZ MD ([id number]) on 11/21/2023 10:12:55 AM Test Reason : Location : [facility] : 14 Overread By : ANAM LUTZ MD Edited By : ANAM LUTZ MD Referred By : TIARRA LOPEZ Acquired by : MERCEDES FRANCIS Normal [facility] Telemedicineon 10-10-2023 Telemedicine Normal [facility] 36on 10-01-2023 36 Normal [facility] Documentationon 10-01-2023 Documentation Normal [facility] 30on 09-29-2023 30 Normal [facility] ANTI-XA (HEPARIN LEVEL)on HEPARIN UNFRACTIONATED (U/ML) IN PPP BY CHROMOGENIC METHOD 0.51 IU/mL Normal 0.3-0.7 [facility] Comment on above: Result Comment: Padmini roxaban and Apixaban will interfere with the anti Xa assay used to monitor UFH and LMWH. Performed By: #### L [id number] ####[facility] ([facility])[address] [place] [address] HEPARIN UNFRACTIONATED (U/ML) IN PPP BY CHROMOGENIC METHOD 0.20 IU/mL Low 0.3-0.7 [facility] Comment on above: Result Comment: Padmini roxaban and Apixaban will interfere with the anti Xa assay used to monitor UFH and LMWH. Performed By: #### L [id number] ####[facility] ([facility])[address] [place] [address] BASIC METABOLIC PANELon 09-16 Anion gap [Moles/Vol] 10 mmol/L Normal 7-20 [facility] Comment on above: Performed By: #### L [id number] ####[facility] ([facility])[address] [place] [address] Calcium [Mass/Vol] 9.6 mg/dL Normal 8.6-10.3 [facility] Comment on above: Performed By: #### L [id number] ####[facility] ([facility])[address] [place] [address] Chloride [Moles/Vol] 102 mmol/L Normal 98-107 [facility] Comment on above: Performed By: #### L [id number] ####[facility] ([facility])[address] [place] [address] CO2 [Moles/Vol] 27 mmol/L Normal 21-31 [facility] Comment on above: Performed By: #### L [id number] ####[facility] ([facility])[address] [place] [address] Creatinine [Mass/Vol] 2.03 mg/dL High 0.70-1.30 [facility] Comment on above: Performed By: #### L [id number] ####[facility] ([facility])[address] [place] [address] GLOMERULAR FILTRATION RATE ML/MIN/1.73 SQ M.PREDICTED 32.3 mL/min/1.73m*2 Low >60.0 [facility] Comment on above: Result Comment: [facility]???s estimated glomerular filtration rate (eGFR) will [...] of individuals. Performed By: #### L [id number] ####[facility] ([facility])[address] [place] [address] Glucose [Mass/Vol] 102 mg/dL High 70-100 [facility] Comment on above: Performed By: #### L [id number] ####[facility] ([facility])[address] [place] [address] Potassium [Moles/Vol] 3.9 mmol/L Normal 3.5-5.1 [facility] Comment on above: Performed By: #### L [id number] ####[facility] ([facility])[address] [place] [address] Sodium [Moles/Vol] 135 mmol/L Low 136-145 [facility] Comment on above: Performed By: #### L [id number] ####[facility] ([facility])[address] [place] [address] Urea nitrogen [Mass/Vol] 37 mg/dL High 7-25 [facility] Comment on above: Performed By: #### L [id number] ####[facility] [place] [address] UREA NITROGEN/CREATININE (MASS RATIO) IN SER/PLAS 18.2 Normal [facility] Comment on above: Performed By: #### L [id number] ####[facility] ([facility] [place] [address] CBCon 09-29-2023 Erythrocyte distribution width (RBC) [Ratio] 15.0 % Normal 11.5-15.0 [facility] Comment on above: Performed By: #### L [id number] ####[facility] ([facility])[address] [place] [address] ERYTHROCYTE MEAN CORPUSCULAR HEMOGLOBIN CONCENTRATION (G/DL) BY AUTOMATED 31.7 g/dL Low 32.0-35.0 [facility] Comment on above: Performed By: #### L [id number] ####[facility] ([facility])[address] [place] [address] Hematocrit (Bld) [Volume fraction] 41.7 % Normal 39.0-55.0 [facility] Comment on above: Performed By: #### L [id number] ####[facility] ([facility] [place] [address] Hemoglobin (Bld) [Mass/Vol] 13.2 g/dL Normal 13.0-17.0 [facility] Comment on above: Performed By: #### L [id number] ####[facility] ([facility] [place] [address] MCH (RBC) [Entitic mass] 28.7 pg Normal 27.0-33.0 [facility] Comment on above: Performed By: #### L [id number] ####[facility] ([facility])[address] [place] [address] MCV (RBC) [Entitic vol] 90.7 fL Normal 82.0-98.0 [facility] Comment on above: Performed By: #### L [id number] ####[facility] ([facility])[address] [place] [address] PLATELETS (10*3/UL) IN BLOOD AUTOMATED COUNT 169 10*3/uL Normal 150-400 [facility] Comment on above: Performed By: #### L [id number] ####[facility] ([facility])[address] [place] [address] RBC (Bld) [#/Vol] 4.60 10*6/uL Normal 4.20-5.70 [facility] Comment on above: Performed By: #### L [id number] ####[facility] ([facility])[address] [place] [address] WBC (Bld) [#/Vol] 6.82 10*3/uL Normal 4.00-10.60 [facility] Comment on above: Performed By: #### L [id number] ####[facility] ([facility])[address] [place] [address] DSon 09-29-2023 DS Normal [facility] MAGNESIUMon 09-29-2023 Magnesium [Mass/Vol] 2.0 mg/dL Normal 1.9-2.7 [facility] Comment on above: Performed By: #### L [id number] ####[facility] ([facility])[address] [place] [address] NURSNOTEon 09-29-2023 NURSNOTE Normal [facility] PROTIME-INRon 09-29-2023 INR IN PPP BY COAGULATION ASSAY 1.20 High 0.90-1.10 [facility] Comment on above: Result Comment: ACCC P RECOMMENDED INR FOR WARFARIN THERAPY CONDITION INRPROPHYLAXIS OF VENOUS THROMBOSIS 2-3(HIGH-RISK SURGERY)TREATMENT OF VENOUS THROMBOSIS 2-3TREATMENT OF PULMONARY EMBOLISM 2-3PREVENTION OF SYSTEMIC EMBOLISM: 2-3 ACUTE MYOCARDIAL INFARCTION TISSUE HEART VALVES VALVULAR HEART DISEASE ATRIAL FIBRILLATION RECURRENT SYSTEMIC EMBOLISMMECHANICAL HEART VALVE 2.5-3.5 FROM: ORAL ANTICOAGULANTS. MECHANISM OF ACTION, CLINICAL EFFECTIVENESS, AND OPTIMAL THERAPEUTIC RANGE. CHEST 1995;108:231S-246S. Performed By: #### L [id number] ####[facility] ([employer])[address] [place] [address] PROTHROMBIN TIME (PT) IN PPP BY COAGULATION ASSAY 15.2 Seconds High 12.3-14.8 [facility] Comment on above: Performed By: #### L [id number] ####[facility] ([employer])[address] [place] [address] TROPONIN Ion 09-29-2023 Troponin I.cardiac [Mass/Vol] 0.25 ng/mL Critically high 0.00-0.04 [facility] Comment on above: Result Comment: M-SD EVIOUS CRITICAL RESULT Performed By: #### L [id number] ####[facility] [employer])[address] [place] [address] 30on 09-28-2023 30 Normal [facility] 30 Normal [facility] ANTI-XA (HEPARIN LEVEL)on HEPARIN UNFRACTIONATED (U/ML) IN PPP BY CHROMOGENIC METHOD 0.23 IU/mL Low 0.3-0.7 [facility] Comment on above: Result Comment: Padmini roxaban and Apixaban will interfere with the anti Xa assay used to monitor UFH and LMWH. Performed By: #### L [id number] ####[facility])[address] [place] [address] HEPARIN UNFRACTIONATED (U/ML) IN PPP BY CHROMOGENIC METHOD 0.55 IU/mL Normal 0.3-0.7 [facility] Comment on above: Result Comment: [place] roxaban and Apixaban will interfere with the anti Xa assay used to monitor UFH and LMWH. Performed By: #### L [id number] ####[facility] ([facility])[address] [place] [address] HEPARIN UNFRACTIONATED (U/ML) IN PPP BY CHROMOGENIC METHOD 0.71 IU/mL High 0.3-0.7 [facility] Comment on above: Result Comment: [place] roxaban and Apixaban will interfere with the anti Xa assay used to monitor UFH and LMWH. Performed By: #### L [id number] ####[facility] ([facility])[address] [place] [address] CBC WITH AUTO DIFFERENTIALon 09-28-2023 Basophils (Bld) [#/Vol] 0.04 10*3/uL Normal 0.00-0.20 [facility] Comment on above: Performed By: #### L [id number] ####[facility] ([facility])[address] [place] [address] Basophils/100 WBC (Bld) 0.6 % Normal 0.0-1.0 [facility] Comment on above: Performed By: #### L [id number] ####[facility] ([facility])[address] [place] [address] Eosinophils (Bld) [#/Vol] 0.30 10*3/uL Normal 0.00-0.50 [facility] Comment on above: Performed By: #### L [id number] ####[facility] ([facility])[address] [place] [address] Eosinophils/100 WBC (Bld) 4.2 % Normal 0.0-6.0 [facility] Comment on above: Performed By: #### L [id number] ####[facility] ([facility] [place] [address] Erythrocyte distribution width (RBC) [Ratio] 15.4 % High 11.5-15.0 [facility] Comment on above: Performed By: #### L [id number] ####[facility] ([facility])[address] [place] [address] ERYTHROCYTE MEAN CORPUSCULAR HEMOGLOBIN CONCENTRATION (G/DL) BY AUTOMATED 31.8 g/dL Low 32.0-35.0 [facility] Comment on above: Performed By: #### L [id number] ####[facility] ([facility])[address] [place] [address] Hematocrit (Bld) [Volume fraction] 42.1 % Normal 39.0-55.0 [facility] Comment on above: Performed By: #### L [id number] ####[facility] ([facility])[address] [place] [address] Hemoglobin (Bld) [Mass/Vol] 13.4 g/dL Normal 13.0-17.0 [facility] Comment on above: Performed By: #### L [id number] ####[facility] ([facility])[address] [place] [address] Immature granulocytes (Bld) [#/Vol] 0.03 10*3/uL Normal 0.00-0.20 [facility] Comment on above: Performed By: #### L [id number] ####[facility] ([facility])[address] [place] [address] Immature granulocytes/100 WBC (Bld) 0.4 % Normal 0.0-1.0 [facility] Comment on above: Performed By: #### L [id number] ####[facility] ([facility])[address] [place] [address] Lymphocytes (Bld) [#/Vol] 1.37 10*3/uL Normal 1.20-4.00 [facility] Comment on above: Performed By: #### L [id number] ####[facility] ([facility])[address] [place] [address] Lymphocytes/100 WBC (Bld) 19.2 % Low 20.0-45.0 [facility] Comment on above: Performed By: #### L [id number] ####[facility] ([facility])[address] [place] [address] MCH (RBC) [Entitic mass] 29.2 pg Normal 27.0-33.0 [facility] Comment on above: Performed By: #### L [id number] ####[facility] ([facility] [place] [address] MCV (RBC) [Entitic vol] 91.7 fL Normal 82.0-98.0 [facility] Comment on above: Performed By: #### L [id number] ####[facility] ([facility] [place] [address] Monocytes (Bld) [#/Vol] 0.69 10*3/uL Normal 0.10-1.00 [facility] Comment on above: Performed By: #### L [id number] ####[facility] ([facility] [place] [address] Monocytes/100 WBC (Bld) 9.7 % Normal 5.0-12.0 [facility] Comment on above: Performed By: #### L [id number] ####[facility] ([facility])[address] [place] [address] Neutrophils (Bld) [#/Vol] 4.70 10*3/uL Normal 1.60-7.60 [facility] Comment on above: Performed By: #### L [id number] ####[facility] ([facility])[address] [place] [address] Neutrophils/100 WBC (Bld) 65.9 % Normal 40.0-72.0 [facility] Comment on above: Performed By: #### L [id number] ####[facility] ([facility])[address] [place] [address] NRBC (PER 100 WBCS) BY AUTOMATED COUNT 0.0 % Normal 0 [facility] Comment on above: Performed By: #### L [id number] ####[facility] ([facility])[address] [place] [address] PLATELETS (10*3/UL) IN BLOOD AUTOMATED COUNT 178 10*3/uL Normal 150-400 [facility] Comment on above: Performed By: #### L [id number] ####[facility] ([facility])[address] [place] [address] RBC (Bld) [#/Vol] 4.59 10*6/uL Normal 4.20-5.70 [facility] Comment on above: Performed By: #### L [id number] ####[facility] ([facility])[address] [place] [address] WBC (Bld) [#/Vol] 7.13 10*3/uL Normal 4.00-10.60 [facility] Comment on above: Performed By: #### L [id number] ####[facility] ([facility])[address] [place] [address] COMPREHENSIVE METABOLIC PANE Aldo 09-28-2023 Albumin [Mass/Vol] 4.1 g/dL Normal 3.5-5.7 [facility] Comment on above: Performed By: #### L [id number] ####[facility] ([facility])[address] [place] [address] ALP [Catalytic activity/Vol] 84 U/L Normal 34-104 [facility] Comment on above: Performed By: #### L [id number] ####[facility] ([facility])[address] [place] [address] ALT [Catalytic activity/Vol] 11 U/L Normal 7-52 [facility] Comment on above: Performed By: #### L [id number] ####[facility] ([facility])[address] [place] [address] Anion gap [Moles/Vol] 16 mmol/L Normal 7-20 [facility] Comment on above: Performed By: #### L [id number] ####[facility] ([facility])[address] [place] [address] AST [Catalytic activity/Vol] 20 U/L Normal 13-39 [facility] Comment on above: Performed By: #### L [id number] ####[facility] ([facility])[address] [place] [address] Bilirubin [Mass/Vol] 1.0 mg/dL Normal 0.3-1.0 [facility] Comment on above: Performed By: #### L [id number] ####[facility] ([facility])[address] [place] [address] Calcium [Mass/Vol] 10.0 mg/dL Normal 8.6-10.3 [facility] Comment on above: Performed By: #### L [id number] ####[facility] ([facility])[address] [place] [address] Chloride [Moles/Vol] 104 mmol/L Normal 98-107 [facility] Comment on above: Performed By: #### L [id number] ####[facility] ([facility])[address] [place] [address] CO2 [Moles/Vol] 22 mmol/L Normal 21-31 [facility] Comment on above: Performed By: #### L [id number] ####[facility] ([facility])[address] [place] [address] Creatinine [Mass/Vol] 2.06 mg/dL High 0.70-1.30 [facility] Comment on above: Performed By: #### L [id number] ####[facility] ([facility])[address] [place] [address] GLOMERULAR FILTRATION RATE ML/MIN/1.73 SQ M.PREDICTED 31.8 mL/min/1.73m*2 Low >60.0 [facility] Comment on above: Result Comment: [facility]???s estimated glomerular filtration rate (eGFR) will [...] group of individuals. Performed By: #### L [id number] ####[facility] ([facility])[address] [place] [address] Glucose [Mass/Vol] 93 mg/dL Normal 70-100 [facility] Comment on above: Performed By: #### L [id number] ####[facility] ([facility])[address] [place] [address] Potassium [Moles/Vol] 4.2 mmol/L Normal 3.5-5.1 [facility] Comment on above: Performed By: #### L [id number] ####[facility] ([facility])[address] [place] [address] Protein [Mass/Vol] 7.1 g/dL Normal 6.0-8.3 [facility] Comment on above: Performed By: #### L [id number] ####[facility] ([facility])[address] [place] [address] Sodium [Moles/Vol] 138 mmol/L Normal 136-145 [facility] Comment on above: Performed By: #### L [id number] ####[facility] ([facility])[address] [place] [address] Urea nitrogen [Mass/Vol] 35 mg/dL High 7-25 [facility] Comment on above: Performed By: #### L [id number] ####[facility] ([facility])[address] [place] [address] UREA NITROGEN/CREATININE (MASS RATIO) IN SER/PLAS 17.0 Normal [facility] Comment on above: Performed By: #### L [id number] ####[facility] ([facility])[address] [place] [address] CONSULTon 09-28-2023 CONSULT Normal [facility] LIPID PANELon 09-28-2023 CHOL/HDL 2.4 mg/dL Normal [facility] Comment on above: Performed By: #### L [id number] ####[facility] ([facility])[address] [place] [address] Cholesterol [Mass/Vol] 123 mg/dL Normal 120-200 [facility] Comment on above: Performed By: #### L [id number] ####[facility] ([facility])[address] [place] [address] Magnesium [Mass/Vol] 56 mg/dL Normal 40-149 [facility] Comment on above: Result Comment: TRIG LYCERIDE REFERENCE RANGE:20 YEARS AND OLDER CARDIOVASCULAR RISKLESS THAN 150 mg/dL LOW [id number] TO 199 mg/dL BORDERLINE [id number] mg/dL AND GREATER HIGH RISK Performed By: #### L [id number] ####[facility] ([facility])[address] [place] [address] Magnesium [Mass/Vol] 61 mg/dL Normal 0-160 [facility] Comment on above: Performed By: #### L [id number] ####[facility] ([facility])[address] [place] [address] Magnesium [Mass/Vol] 51 mg/dL Normal 23-92 [facility] Comment on above: Performed By: #### L [id number] ####[facility] ([facility])[address] [place] [address] NON HDL CHOL. (LDL+VLDL) 72 Normal [facility] Comment on above: Performed By: #### L [id number] ####[facility] ([facility])[address] [place] [address] TOTAL VLDL-C 11 mg/dL Normal 0-40 [facility] Comment on above: Performed By: #### L [id number] ####[facility] ([facility])[address] [place] [address] TROPONIN Ion 09-28-2023 Troponin I.cardiac [Mass/Vol] 0.31 ng/mL Critically high 0.00-0.04 [facility] Comment on above: Result Comment: M-SD EVIOUS CRITICAL RESULTPrevious result verified on 09/27/2023 1732 on specimen/case [id number] called with component Troponin I for procedure Troponin I with value 0.32 ng/mL. Performed By: #### L [id number] ####[facility] ([facility])[address] [place] [address] TSH3 REFLEX TO FT4on 024 THYROTROPIN (MIU/L) IN SER/PLAS BY DETECTION LIMIT <= 0.05 MIU/L 1.41 mIU/L Normal 0.34-5.60 [facility] Comment on above: Performed By: #### L [id number] ####[facility] ([facility])[address] [place] [address] 30on 09-27-2023 30 Normal [facility] 30 Normal [facility] ANTI-XA (HEPARIN LEVEL)on HEPARIN UNFRACTIONATED (U/ML) IN PPP BY CHROMOGENIC METHOD 0.75 IU/mL High 0.3-0.7 [facility] Comment on above: Result Comment: [place] roxaban and Apixaban will interfere with the anti Xa assay used to monitor UFH and LMWH. Performed By: #### L [id number] ####[facility] ([facility])[address] [place] [address] HEPARIN UNFRACTIONATED (U/ML) IN PPP BY CHROMOGENIC METHOD 0.93 IU/mL Critically high 0.3-0.7 [facility] Comment on above: Order Comment: Check anti-Xa level every 6 hours while on heparin infusion, or per protocol. Result Comment: [place] roxaban and Apixaban will interfere with the anti Xa assay used to monitor UFH and LMWH. Performed By: #### L [id number] ####[facility] ([facility])[address] [place] [address] BASIC METABOLIC PANELon 09-16 Anion gap [Moles/Vol] 14 mmol/L Normal 7-20 [facility] Comment on above: Performed By: #### L [id number] ####[facility] ([facility])[address] [place] [address] Calcium [Mass/Vol] 9.8 mg/dL Normal 8.6-10.3 [facility] Comment on above: Performed By: #### L [id number] ####[facility] ([facility])[address] [place] [address] Chloride [Moles/Vol] 105 mmol/L Normal 98-107 [facility] Comment on above: Performed By: #### L [id number] ####[facility] ([facility])[address] [place] [address] CO2 [Moles/Vol] 25 mmol/L Normal 21-31 [facility] Comment on above: Performed By: #### L [id number] ####[facility] ([facility])[address] [place] [address] Creatinine [Mass/Vol] 2.01 mg/dL High 0.70-1.30 [facility] Comment on above: Performed By: #### L [id number] ####[facility] ([facility])[address] [place] [address] GLOMERULAR FILTRATION RATE ML/MIN/1.73 SQ M.PREDICTED 32.7 mL/min/1.73m*2 Low >60.0 [facility] Comment on above: Result Comment: [facility]???s estimated glomerular filtration rate (eGFR) will [...] of individuals. Performed By: #### L AB15 ####[facility] ([facility])[address] [place] [address] Glucose [Mass/Vol] 103 mg/dL High 70-100 [facility] Comment on above: Performed By: #### L AB15 ####[facility] ([facility])[address] [place] [address] Potassium [Moles/Vol] 4.3 mmol/L Normal 3.5-5.1 [facility] Comment on above: Performed By: #### L AB15 ####[facility] ([facility])[address] [place] [address] Sodium [Moles/Vol] 140 mmol/L Normal 136-145 [facility] Comment on above: Performed By: #### L AB15 ####[facility] ([facility])[address] [place] [address] Urea nitrogen [Mass/Vol] 37 mg/dL High 7-25 [facility] Comment on above: Performed By: #### L AB15 ####[facility] ([facility])[address] [place] [address] UREA NITROGEN/CREATININE (MASS RATIO) IN SER/PLAS 18.4 Normal [facility] Comment on above: Performed By: #### L AB15 ####[facility] ([facility])[address] [place] [address] CONSULTon 09-27-2023 CONSULT Normal [facility] HPon 09-27-2023 HP Normal [facility] MAGNESIUMon 09-27-2023 Magnesium [Mass/Vol] 2.0 mg/dL Normal 1.9-2.7 [facility] Comment on above: Performed By: #### L AB103 ####[facility] ([facility])[address] [place] [address] Orders Onlyon 09-27-2023 Orders Only Normal [facility] PLATELET COUNTon 09-27-2023 PLATELETS (10*3/UL) IN BLOOD AUTOMATED COUNT 165 10*3/uL Normal 150-400 [facility] Comment on above: Performed By: #### L AB301 ####[facility] ([facility])[address] [place] [address] TROPONIN Ion 09-27-2023 Troponin I.cardiac [Mass/Vol] 0.31 ng/mL Critically high 0.00-0.04 [facility] Comment on above: Result Comment: M-SD EVIOUS CRITICAL RESULTPrevious result verified on 09/27/2023 1732 on specimen/case [id number] called with component Troponin I for procedure Troponin I with value 0.32 ng/mL. Performed By: #### L [id number] ####[facility] ([facility])[address] [place] [address] Troponin I.cardiac [Mass/Vol] 0.32 ng/mL Critically high 0.00-0.04 [facility] Comment on above: Result Comment: M-TR OPONIN INITIAL CRITICAL HIGH; RESPUN AND RETESTED Performed By: #### L [id number] ####[facility] ([facility])[address] [place] [address] PSA SerPl-ncon 09-24-2023 Prostate specific Ag [Mass/Vol] ng/mL Normal <2.60 [facility] Comment on above: Order Comment: Speci men Type: BLOOD SPECIMENOrdering Facility: [facility] [place] Address: [address] [place] [address] Result Comment: Anival fenton PSA test methodology used is the Electrochemiluminescence Immunoassay by [employer]. Total PSA values by differing methodologies cannot be interchanged. Performed By: #### 2 857-1 ####[facility] [id number] [place] [address] [place] CNPPrincess 08-27-2023 DOROTHYN Telephone (ALISSON) JOSÉ MIGUEL ROTH JR. ([id number]) 1940 Date Time Provider Department 08/27/23 VIRGIL CARRILLO During your visit today, we recorded the [...] 0.4 mg SL tablet as directed. - SPECIAL SERVICE REPRESENTATIVE 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 - [...] of t*04/28/2012 05/05/2012 Atherosclerotic heart disease of [place] coronar* SUMMARY [V999.95] 04/28/2012 Wide-complex tachycardia [R00.0] [...] (coronary artery bypass graft) [Z95.1] 06/17/2012 Sweating [GIX9562] 11/17/2012 CAD (coronary artery disease) of artery bypass *11/17/2012 Systolic heart failure (HCC) [I50.20] 11/17/2012 PVD (peripheral vascular disease) (HCC) [I73.9] 11/17/2012 Prostate cancer (HCC) [C61] 10/09/2017 Syncope [R55] 03/18/2019 Stroke (cerebrum) [facility] [I63.9] 09/03/2022 Chronic combined systolic and diastolic congest*09/03/2022 Carotid stenosis, asymptomatic, bilateral [I65.*09/03/2022 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 *04/26/2023 Encounter Status:Closed by CARINA SUE on 08/27/23 Normal [facility] CNOVon 04-26-2023 CNOV Office Visit (ALISSON ) JOSÉ MIGUEL ROTH JRTitus ([id number]) 1940 Date Time Provider Department 04/26/23 3:00 PM ANDREAS DEL CID During your visit today, we recorded the following information about you: Pulse Respiration Blood pressure Weight 73/minute 12/minute 116/62 83.9 kg Height 1.829 m Andreas Del Cid MD 04/27/2023 12:57 PM [facility] Maryneal Jose Martin Silva Department of Cardiovascular Medicine SECTION OF CARDIOVASCULAR IMAGING OUTPATIENT VISIT DATE April 26, 2023 OUTPATIENT VISIT TYPE ESTABLISHED PRIMARY CARE PHYSICIAN: Francisca Thomposn [address] [place] [address] REFERRING PHYSICIAN: Francisca Thompson [address] [facility] [address] CHIEF COMPLAINT: Follow up HISTORY OF PRESENT [...] systolic and diastolic congestive heart failure ([facility]) 09/03/2022 Dyslipidemia GERD (gastroesophageal reflux disease) Heart failure, acute systolic ([facility]) Hypertension Hypothyroid Myocardial infarct, old Occlusion and stenosis of carotid artery without mention of cerebral infarction Prostate cancer ([facility]) 2020 PVD (peripheral vascular disease) ([facility]) 11/17/2012 Stroke (cerebrum) ([facility]) 09/03/2022 Systolic heart failure ([facility]) Thyroid disorder 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 kidney disease, unspecified CKD stage, unspecified whether superintendent container terminal insulin use ([facility]) 04/26/2023 Ventricular tachycardia ([facility]) 04/28/2012 PAST SURGICAL HISTORY [...] Artery Disease Father Heart Attack Father fatal CT at age 77 other (atrial fibrillation) Mother other (CHF) Mother other (Other) Mother at age 96 Ischemic Heart Disease Brother CABGx6 first at age 72 No Known Problems Daughter No Known Problems Daughter No Known Problems Daughter other (Other) Other paternal cousin at age [address] ALLERGIES: ALLERGIES Allergen Reactions Latex Rash Adhesive [...] difficulties. HE (more content not included)... Normal [facility] ECG COMPLETEon 04-26-2023 ECG COMPLETE Ventricular Rate : 6 6 BPM Atrial Rate : 66 BPM P-R Interval : 180 ms QRS Duration : 114 ms Q-T Interval : 406 ms QTC Calculation(Bazett) : 425 ms Calculated P Concan : 39 degrees Calculated R Concan : -13 degrees Calculated T Concan : 87 degrees SINUS RHYTHM WITH SINUS ARRHYTHMIA WITH OCCASIONAL PREMATURE VENTRICULAR COMPLEXES CANNOT EXCLUDE OLD INTERIOR INFARCTION ABNORMAL ECG Confirmed by CARMELA CRYSTAL MD ([id number]) on 05/02/2023 7:31:47 PM NAME : JOSÉ MIGUEL ROTH PID : [id number] : 1940 Gender : Male Race : ORD : [id number] Procedure Date : Apr 26 2023 12:40:23 Edit Date : May 02 2023 19:31:54 Diagnosis: SINUS RHYTHM WITH SINUS ARRHYTHMIA WITH OCCASIONAL PREMATURE VENTRICULAR COMPLEXES CANNOT EXCLUDE OLD INTERIOR INFARCTION ABNORMAL ECG Confirmed by CARMELA CRYSTAL MD ([id number]) on 05/02/2023 7:31:47 PM Test Reason : Location : [facility] : [place] [address] Overread By : CARMELA CRYSTAL MD Edited By : CARMELA CRYSTAL MD Referred By : ANDREAS DEL CID Acquired by : MAIKOL BURLESON Normal [facility] ECHOon 04-26-2023 Echocardiography Echocardiography Rep ort: Transthoracic Echo [facility] J1-5 Date of service: 04/26/2023 1:20:02 PM 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 Normal [facility] CNOVon 04-02-2023 CNOV Office Visit (RADTSA ) IRAJOSÉ MIGUEL Fenton ([id number]) 1940 M Date Time Provider Department 04/02/23 [...] second prostate adenocarcinoma, initial PSA 8, biopsy Midway score 3 + 4 = 7 (grade group 2), clinical stage T1c, N0, M0, stage IIB [T1-T2, N0, M0, PSA <20, GG 2] (AJCC 8th ed.), s/p TRUS Random biopsy, Patient elected observation and was found to have progression, PSA 08/2021 36.2. and repeat biopsy showing Midway 7 (3+4) adenocarcinoma. RADIATION SUMMARY: DATES OF [...] who recently had to be admitted to long-term due to feels safe. PSA HISTORY: PSA [...] Yung Kim MD cc: Francisca Thompson MD [address] [place] [address] Kathie Pavon RN 04/02/2023 4:02 PM Signed AUA 1.5 Kathie Pavon RN Allergies As of Date: 04/02/2023 Noted Allergy Reaction LATEX 03/13/2019 2 - Rash ADHESIVE TAPE (ROSINS) 06/16/2012 2 - Rash Date Reviewed: 04/02/2023 Reviewed by: Kathie Pavon RN - Fully Assessed Reason for Visit: Prostate Cancer [590] Primary Visit Diagnosis:Malignant neoplasm of prostate (HCC) [C61] Order(s):PSA/PROSTSPECAG DIAG [SQPSA] Order #: [id number] FUTURE Prescriptions as of 04/05/2023 - FARXIGA [...] spironolactone (ALDAC (more content not included)... Normal [facility] Prostate specific Ag [Mass/Vol] ng/mL Normal <2.60 [facility] Comment on above: Order Comment: Speci men Type: BLOOD SPECIMEN Ordering Facility: [facility] [place] Address: [address] [place] [address] Result Comment: Anival l PSA test methodology used is the Electrochemiluminescence Immunoassay by [employer]. Total PSA values by differing methodologies cannot be interchanged. Performed By: #### 2 857-1 #### [facility] CLIA [id number] [address] [facility] [address] [place] ICD REMOTE CHECKon 3 AV Delay Adaptive Paced Minimum (ms) 200 ms [facility] AV Delay Adaptive Sensed Minimum (ms) 170 ms [facility] Bj RA Pacing Amplitude (volts) 2.0 V [facility] Bj RA Pacing Polarity BI [facility] Bj RA Pacing Pulse Width (ms) 0.5 ms [facility] Bj RA Sensing Amplitude (mvolts) 0.25 mV [facility] Bj RA Sensing Polarity BI [facility] Bj RV Pacing Amplitude (volts) 2.0 V [facility] Bj RV Pacing Polarity BI [facility] Bj RV Pacing Pulse Width (ms) 0.5 ms [facility] Bj RV Sensing Amplitude (mvolts) 0.3 mV [facility] Bj RV Sensing Polarity BI [facility] Detection Configuration (Vent) 2 - Zone [facility] FastVT_Detection Interval 250 ms [facility] FastVT_Therapy Configuration 1 ATP(s) + 8 Shock(s) [facility] ICD FastVT DetectionStatus ENABLED [facility] ICD-AMS EPISODES 170 {beats}/min [facility] ICD-ATP Episodes (Vent) 0 [facility] ICD-ATRIALFIBRILLAT ION 2 [facility] ICD-ATRIALTACHYCARD IA 2 [facility] ICD-ATRIALTACHYCARD IA 5 [facility] ICD-Device Mfg BSX [facility] ICD-Fast Ventricular Tachycardia 5 [facility] ICD-LEADIMPEDANCEAT RIAL 746 ohm [facility] ICD-Percent Pacing (Atrial) 1 % [facility] ICD-Percent Pacing (Vent) 0 % [facility] ICD-Shocks Aborted (Vent) 0 [facility] TPP-XRNEOK-WWRYINOB D 0 [facility] ICD-SHOCKSABORTED 0 [facility] ICD-SHOCKSDELIVERED VENTRICULAR 0 [facility] ICD-Ventricular Fibrillation 0 [facility] Lead Impedance (RV) 426 ohm [facility] Lead Impedance High Voltage 49 ohm [facility] Lead1 Mfg BSX [facility] Lead2 Mfg BSX [facility] Location RV [facility] Location RA [facility] Lower Rate (bpm) 50 {beats}/min [facility] Max Sensor Rate (bpm) 130 {beats}/min [facility] MDT_PROG_TACHY_ZONE _DETECTIONS_STATUS ENABLED [facility] Model D142 INOGEN [facility] Model 0675 [place] 4-Front [facility] Model 7741 Ingevity MRI [facility] Pacing Mode DDDR [facility] Serial Number [id number] [facility] Serial Number [id number] [facility] Serial Number [id number] [facility] Test Charge Energy [address] [facility] Test Charge Time 10.2 s [facility] Therapy Status (Vent) Enabled [facility] Thresh RA Capture Amplitude (volts) 0.6 V [facility] Thresh RA Capture Duration (ms) 0.5 ms [facility] Thresh RV Capture Amplitude (VOLTS) 0.5 V [facility] Thresh RV Capture Duration (MS) 0.5 ms [facility] Tracking Rate (bpm) 130 {beats}/min [facility] VF Zone Detection Interval 250 ms [facility] VF Zone Therapy Configuration 1 ATP(s) + 8 Shock(s) [facility] No Panel Informationon 02-21 BLANK _ [facility] ICD-ATRIALTACHYCARD IA 0 [facility] ICD-Fast Ventricular Tachycardia 0 [facility] Implant Date 03/24/2019 [facility] FREE T3on 02-08-2023 FREE T3 3.21 pg/mlL Normal 2.18-3.98 [facility] Comment on above: Performed By: #### V ITAD #### [facility] [address] [place] [address] Dr. Silva Burnett FREE T4on 02-08-2023 Free T4 [Mass/Vol] 0.74 ng/dL Critically low 0.76-1.46 Th [facility] Comment on above: Performed By: #### B MP, BNP #### [facility] [address] [place] [address] Dr. Silva Burnett TSHon 02-08-2023 TSH 0.168 uIU/mL Critically low 0.358-3.740 [facility] Comment on above: Performed By: #### V ITAD #### [facility] [address] [place] [address] [address] Silva Burnett ICD REMOTE CHECKon 3 AV Delay Adaptive Paced Minimum (ms) 200 ms [facility] AV Delay Adaptive Sensed Minimum (ms) 170 ms [facility] Bj RA Pacing Amplitude (volts) 2 V [facility] Bj RA Pacing Polarity BI [facility] Bj RA Pacing Pulse Width (ms) 0.5 ms [facility] Bj RA Sensing Amplitude (mvolts) 0.25 mV [facility] Bj RA Sensing Polarity BI [facility] Bj RV Pacing Amplitude (volts) 2 V [facility] Bj RV Pacing Polarity BI [facility] Bj RV Pacing Pulse Width (ms) 0.5 ms [facility] Bj RV Sensing Amplitude (mvolts) 0.3 mV [facility] Bj RV Sensing Polarity BI [facility] Detection Configuration (Vent) 2 - Zone [facility] FastVT_Detection Interval 250 ms [facility] FastVT_Therapy Configuration 1 ATP(s) + 8 Shock(s) [facility] ICD FastVT DetectionStatus ENABLED [facility] ICD-AMS EPISODES 170 {beats}/min [facility] ICD-ATP Episodes (Vent) 0 [facility] ICD-ATRIALFIBRILLAT ION 1 [facility] ICD-ATRIALTACHYCARD IA 1 [facility] ICD-ATRIALTACHYCARD IA 3 [facility] ICD-Device Mfg BSX [facility] ICD-Fast Ventricular Tachycardia 3 [facility] ICD-LEADIMPEDANCEAT RIAL 786 ohm [facility] ICD-Percent Pacing (Atrial) 1 % [facility] ICD-Percent Pacing (Vent) 0 % [facility] ICD-Shocks Aborted (Vent) 0 [facility] OFP-XCZQND-UEIONKRM D 0 [facility] ICD-SHOCKSABORTED 0 [facility] ICD-SHOCKSDELIVERED VENTRICULAR 0 [facility] ICD-Ventricular Fibrillation 0 [facility] Lead Impedance (RV) 458 ohm [facility] Lead Impedance High Voltage 53 ohm [facility] Lead1 Mfg BSX [facility] Lead2 Mfg BSX [facility] Location RV [facility] Location RA [facility] Lower Rate (bpm) 50 {beats}/min [facility] Max Sensor Rate (bpm) 130 {beats}/min [facility] MDT_PROG_TACHY_ZONE _DETECTIONS_STATUS ENABLED [facility] Model D142 INOGEN [facility] Model 0675 [place] 4-Front [facility] Model 7741 Ingevity MRI [facility] Pacing Mode DDDR [facility] Serial Number [id number] [facility] Serial Number [id number] [facility] Serial Number [id number] [facility] Test Charge Energy [address] [facility] Test Charge Time 10.2 s [facility] Therapy Status (Vent) Enabled [facility] Thresh RA Capture Amplitude (volts) 0.6 V [facility] Thresh RA Capture Duration (ms) 0.5 ms [facility] Thresh RV Capture Amplitude (VOLTS) 0.5 V [facility] Thresh RV Capture Duration (MS) 0.5 ms [facility] Tracking Rate (bpm) 130 {beats}/min [facility] VF Zone Detection Interval 250 ms [facility] VF Zone Therapy Configuration 1 ATP(s) + 8 Shock(s) [facility] No Panel Informationon 11-07 BLANK _ [facility] ICD-ATRIALTACHYCARD IA 0 [facility] ICD-Fast Ventricular Tachycardia 0 [facility] Implant Date 03/24/2019 [facility] Comprehensive metabolic 2000 panelon 10-26-2022 Albumin [Mass/Vol] 4.0 g/dL 3.9 - 4.9 g/dL [facility] ALP [Catalytic activity/Vol] 103 U/L 38 - 113 U/L [facility] ALT [Catalytic activity/Vol] 15 U/L 10 - 54 U/L [facility] Anion gap [Moles/Vol] 17 mmol/L 9 - 18 mmol/L [facility] AST [Catalytic activity/Vol] 26 U/L 14 - 40 U/L [facility] Bilirubin [Mass/Vol] 0.6 mg/dL 0.2 - 1.3 mg/dL [facility] Calcium [Mass/Vol] 10.2 mg/dL 8.5 - 10. 2 mg/dL [facility] Chloride [Moles/Vol] 103 mmol/L 97 - 105 mmol/L [facility] CO2 [Moles/Vol] 20 mmol/L Low 22 - 30 mmol/L [facility] Creatinine [Mass/Vol] 1.89 mg/dL High 0.73 - 1.22 mg/dL [facility] Estimated Glomerular Filtration Rate 35 mL/min/1.73m Low >=60 mL/min/1.73 m [facility] Glucose [Mass/Vol] 103 mg/dL High 74 - 99 mg/dL [facility] Potassium [Moles/Vol] 5.5 mmol/L High 3.7 - 5.1 mmol/L [facility] Protein [Mass/Vol] 7.7 g/dL 6.3 - 8.0 g/dL [facility] Sodium [Moles/Vol] 140 mmol/L 136 - 144 mmol/L [facility] Urea nitrogen [Mass/Vol] 40 mg/dL High 9 - 24 mg/dL [facility] NT PRO BNPon 10-26-2022 Natriuretic peptide.B prohormone N-Terminal [Mass/Vol] 5553 pg/mL High <450 pg/mL [facility] CBC W Auto Differential pane l (Bld)on 10-25-2022 Basophils (Bld) [#/Vol] <0.11 k/uL [facility] Basophils/100 WBC (Bld) 0.3 % [facility] Differential cell count method Nom (Bld) Auto [facility] Eosinophils (Bld) [#/Vol] 0.20 10*3/uL <0.46 k/uL [facility] Eosinophils/100 WBC (Bld) 2.7 % [facility] Erythrocyte distribution width (RBC) [Ratio] 13.6 % 11.5 - 15.0 % [facility] Hematocrit (Bld) [Volume fraction] 47.3 % 39.0 - 51.0 % [facility] Hemoglobin (Bld) [Mass/Vol] 14.6 g/dL 13.0 - 17.0 g/dL [facility] Immature granulocytes (Bld) [#/Vol] <0.10 k/uL [facility] Immature granulocytes/100 WBC (Bld) 0.3 % [facility] Lymphocytes (Bld) [#/Vol] 1.40 10*3/uL 1.00 - 4.00 k/uL [facility] Lymphocytes/100 WBC (Bld) 19.0 % [facility] MCH (RBC) [Entitic mass] 29.1 pg 26.0 - 34.0 pg [facility] MCHC (RBC) [Mass/Vol] 30.9 g/dL 30.5 - 36.0 g/dL [facility] MCV (RBC) [Entitic vol] 94.2 fL 80.0 - 100.0 fL [facility] Monocytes (Bld) [#/Vol] 0.65 10*3/uL <0.87 k/uL [facility] Monocytes/100 WBC (Bld) 8.8 % [facility] Neutrophils (Bld) [#/Vol] 5.06 10*3/uL 1.45 - 7.50 k/uL [facility] Neutrophils/100 WBC (Bld) 68.9 % [facility] Nucleated RBC (Bld) [#/Vol] <0.01 k/uL [facility] Nucleated RBC/100 WBC (Bld) [Ratio] 0.0 /100 WBC [facility] Platelet mean volume (Bld) [Entitic vol] 10.7 fL 9.0 - 12.7 fL [facility] Platelets (Bld) [#/Vol] 159 10*3/uL 150 - 400 k/uL [facility] RBC (Bld) [#/Vol] 5.02 10*6/uL 4.20 - 6.0 0 m/uL [facility] WBC (Bld) [#/Vol] 7.35 10*3/uL 3.70 - 11.00 k/uL [facility] GLUCOSE, BLOOD (POC)on 10-25 Glucose [Mass/Vol] 94 mg/dL 74 - 99 mg/dL [facility] Glucose [Mass/Vol] 101 mg/dL Abnormal 74 - 99 mg/dL [facility] No Panel Informationon 10-25 [facility] BNPon 08-30-2022 Natriuretic peptide B (Bld) [Mass/Vol] 5149.0 pg/mL Critically high <=1,800.[address] [facility] Comment on above: Performed By: #### B MP, BNP #### [facility] [address] [place] [address] Dr. Silva Burnett PROF CHEM 8 (BAS METB)on Anion gap [Moles/Vol] 9.3 mmol/L Normal [facility] Comment on above: Performed By: #### B MP, BNP #### [facility] [address] [place] [address] [address] Silva Burnett Calcium [Mass/Vol] 9.5 mg/dL Normal 8.5-10.1 [facility] Comment on above: Performed By: #### B MP, BNP #### [facility] [address] [place] [address] Dr. Silva Burnett Chloride [Moles/Vol] 103 mmol/L Normal 98-107 [facility] Comment on above: Performed By: #### B MP, BNP #### [facility] [address] [place] [address] Dr. Silva Burnett CO2 [Moles/Vol] 30.2 mmol/L Normal 21.0-32.0 [facility] Comment on above: Performed By: #### B MP, BNP #### [facility] [address] [place] [address] Dr. Silva Burnett Creatinine [Mass/Vol] 1.86 mg/dL Critically high 0.70-1.30 [facility] Comment on above: Performed By: #### B MP, BNP #### [facility] [address] [place] [address] Dr. Silva Burnett EGFR-AF IVORIAN 43 mL/min/1.73m2 Critically low >=60 [facility] Comment on above: Performed By: #### B MP, BNP #### [facility] [address] [place] [address] Dr. Silva Burnett EGFR-NON AF IVORIAN 35 mL/min/1.73m2 Critically low >=60 [facility] Comment on above: Performed By: #### B MP, BNP #### [facility] [address] [place] [address] Dr. Silva Burnett Glucose [Mass/Vol] 108 mg/dL Critically high 74-106 [facility] Comment on above: Performed By: #### B MP, BNP #### [facility] [address] [place] [address] Dr. Silva Burnett Potassium [Moles/Vol] 4.5 mmol/L Normal 3.5-5.1 [facility] Comment on above: Performed By: #### B MP, BNP #### [facility] [address] [place] [address] [address] Silva Burnett Sodium [Moles/Vol] 138 mmol/L Normal 136-145 [facility] Comment on above: Performed By: #### B MP, BNP #### [facility] [address] [place] [address] [address] Silva Burnett Urea nitrogen [Mass/Vol] 27.0 mg/dL Critically high 7.0-18.0 [facility] Comment on above: Performed By: #### B MP, BNP #### [facility] [address] [place] [address] Dr. Silva Burnett Urea nitrogen/Creatinine [Mass ratio] 14.5 mg/mg Normal [facility] Comment on above: Performed By: #### B MP, BNP #### [facility] [address] [address] [address] Silva Burnett ICD REMOTE CHECKon 2 AV Delay Adaptive Paced Minimum (ms) 200 ms [facility] AV Delay Adaptive Sensed Minimum (ms) 170 ms [facility] Bj RA Pacing Amplitude (volts) 2 V [facility] Bj RA Pacing Polarity BI [facility] Bj RA Pacing Pulse Width (ms) 0.5 ms [facility] Bj RA Sensing Amplitude (mvolts) 0.25 mV [facility] Bj RA Sensing Polarity BI [facility] Bj RV Pacing Amplitude (volts) 2 V [facility] Bj RV Pacing Polarity BI [facility] Bj RV Pacing Pulse Width (ms) 0.5 ms [facility] Bj RV Sensing Amplitude (mvolts) 0.3 mV [facility] Bj RV Sensing Polarity BI [facility] Detection Configuration (Vent) 2 - Zone [facility] FastVT_Detection Interval 250 ms [facility] FastVT_Therapy Configuration 1 ATP(s) + 8 Shock(s) [facility] ICD FastVT DetectionStatus ENABLED [facility] ICD-AMS EPISODES 170 {beats}/min [facility] ICD-ATP Episodes (Vent) 0 [facility] ICD-ATRIALFIBRILLAT ION 0 [facility] ICD-ATRIALTACHYCARD IA 1 [facility] ICD-Device Mfg BSX [facility] ICD-Fast Ventricular Tachycardia 1 [facility] ICD-LEADIMPEDANCEAT RIAL 743 ohm [facility] ICD-Percent Pacing (Atrial) 0 % [facility] ICD-Percent Pacing (Vent) 0 % [facility] ICD-Shocks Aborted (Vent) 0 [facility] [id number] D 0 [facility] ICD-SHOCKSABORTED 0 [facility] ICD-SHOCKSDELIVERED VENTRICULAR 0 [facility] ICD-Ventricular Fibrillation 0 [facility] Lead Impedance (RV) 431 ohm [facility] Lead Impedance High Voltage 48 ohm [facility] Lead1 Mfg BSX [facility] Lead2 Mfg BSX [facility] Location RV [facility] Location RA [facility] Lower Rate (bpm) 50 {beats}/min [facility] Max Sensor Rate (bpm) 130 {beats}/min [facility] MDT_PROG_TACHY_ZONE _DETECTIONS_STATUS ENABLED [facility] Model D142 INOGEN [facility] Model 0675 Britton 4-Front [facility] Model 7741 Ingevity MRI [facility] Pacing Mode DDDR [facility] Serial Number [id number] [facility] Serial Number [id number] [facility] Serial Number [id number] [facility] Test Charge Energy [address] [facility] Test Charge Time 10.1 s [facility] Therapy Status (Vent) Enabled [facility] Thresh RA Capture Amplitude (volts) 0.6 V [facility] Thresh RA Capture Duration (ms) 0.5 ms [facility] Thresh RV Capture Amplitude (VOLTS) 0.5 V [facility] Thresh RV Capture Duration (MS) 0.5 ms [facility] Tracking Rate (bpm) 130 {beats}/min [facility] VF Zone Detection Interval 250 ms [facility] VF Zone Therapy Configuration 1 ATP(s) + 8 Shock(s) [facility] No Panel Informationon 08-07 BLANK _ [facility] ICD-ATRIALTACHYCARD IA 0 [facility] ICD-Fast Ventricular Tachycardia 0 [facility] Implant Date 03/24/2019 [facility] BNPon 07-23-2022 Natriuretic peptide B (Bld) [Mass/Vol] 5638.0 pg/mL Critically high <=1,800.[address] [facility] Comment on above: Performed By: #### B MP, BNP, LIPID #### [facility] [address] [place] [address] Dr. Silva Burnett LIPID PROFILEon 07-23-2022 CHOL-HDL RATIO NORM SEE BELOW Normal [facility] Comment on above: Result Comment: 3.3 - 4.4 LOW RISK 4.4 - 7.1 AVERAGE RISK 7.1 - 11.0 MODERATE RISK >11.0 HIGH RISK Performed By: #### B MP, BNP, LIPID #### [facility] [address] [address] [address] Silva Burnett Cholesterol [Mass/Vol] 126 mg/dL Normal <=200 [facility] Comment on above: Performed By: #### B MP, BNP, LIPID #### [facility] [address] [address] [address] Silva Burnett Cholesterol in HDL [Mass/Vol] 51 mg/dL Normal 40-60 [facility] Comment on above: Performed By: #### B MP, BNP, LIPID #### [facility] [address] [address] [address] Silva Burnett Cholesterol in LDL [Mass/Vol] 61.4 mg/dL Normal [facility] Comment on above: Performed By: #### B MP, BNP, LIPID #### [facility] [address] [address] [address] Silva Burnett Cholesterol.total/C holesterol in HDL [Mass ratio] 2.5 {ratio} Normal [facility] Comment on above: Performed By: #### B MP, BNP, LIPID #### [facility] [address] [address] [address] Silva Burnett HDL NORMAL > or = 60 mg/dl - LO W CARDIOVASCULAR RISK <40 mg/dl - HIGH CARDIOVASCULAR RISK Normal [facility] Comment on above: Performed By: #### B MP, BNP, LIPID #### [facility] [address] [address] [address] Silva Burnett LDL CALC NORMAL SEE BELOW Normal [facility] Comment on above: Result Comment: <100 mg/dl OPTIMAL 100 - 129 mg/dl NEAR OR ABOVE OPTIMAL 130 - 159 mg/dl BORDERLINE HIGH 160 - 189 mg/dl HIGH >190 mg/dl VERY HIGH Performed By: #### B MP, BNP, LIPID #### [facility] [address] [address] [address] Silva Burnett Triglyceride [Mass/Vol] 68 mg/dL Normal <=150 [facility] Comment on above: Performed By: #### B MP, BNP, LIPID #### [facility] [address] [address] [address] Silva Burnett VLDL CALC 13.6 mg/dL Normal [facility] Comment on above: Performed By: #### B MP, BNP, LIPID #### [facility] [address] [address] [address] Silva Burnett PROF CHEM 8 (BAS METB)on Anion gap [Moles/Vol] 10.2 mmol/L Normal [facility] Comment on above: Performed By: #### B MP, BNP, LIPID #### [facility] [address] [address] [address] Silva Burnett Calcium [Mass/Vol] 9.3 mg/dL Normal 8.5-10.1 [facility] Comment on above: Performed By: #### B MP, BNP, LIPID #### [facility] [address] [address] [address] Silva Burnett Chloride [Moles/Vol] 102 mmol/L Normal 98-107 [facility] Comment on above: Performed By: #### B MP, BNP, LIPID #### [facility] [address] [address] [address] Silva Burnett CO2 [Moles/Vol] 29.7 mmol/L Normal 21.0-32.0 [facility] Comment on above: Performed By: #### B MP, BNP, LIPID #### [facility] [address] [address] [address] Silva Burnett Creatinine [Mass/Vol] 1.68 mg/dL Critically high 0.70-1.30 [facility] Comment on above: Performed By: #### B MP, BNP, LIPID #### [facility] [address] [address] [address] Silva Burnett EGFR-AF IVORIAN 48 mL/min/1.73m2 Critically low >=60 [facility] Comment on above: Performed By: #### B MP, BNP, LIPID #### [facility] [address] [place] [address] Dr. Sliva Burnett EGFR-NON AF IVORIAN 40 mL/min/1.73m2 Critically low >=60 [facility] Comment on above: Performed By: #### B MP, BNP, LIPID #### [facility] [address] [place] [address] Dr. Silva Burnett Glucose [Mass/Vol] 97 mg/dL Normal 74-106 [facility] Comment on above: Performed By: #### B MP, BNP, LIPID #### [facility] [address] [place] [address] Dr. Silva Burnett Potassium [Moles/Vol] 3.9 mmol/L Normal 3.5-5.1 [facility] Comment on above: Performed By: #### B MP, BNP, LIPID #### [facility] [address] [place] [address] Dr. Silva Burnett Sodium [Moles/Vol] 138 mmol/L Normal 136-145 [facility] Comment on above: Performed By: #### B MP, BNP, LIPID #### [facility] [address] [place] [address] Dr. Silva Burnett Urea nitrogen [Mass/Vol] 28.0 mg/dL Critically high 7.0-18.0 [facility] Comment on above: Performed By: #### B MP, BNP, LIPID #### [facility] [address] [place] [address] Dr. Silva Burnett Urea nitrogen/Creatinine [Mass ratio] 16.7 mg/mg Normal [facility] Comment on above: Performed By: #### B MP, BNP, LIPID #### [facility] [address] [place] [address] Dr. Silva Burnett FREE T3on 07-18-2022 FREE T3 3.48 pg/mlL Normal 2.18-3.98 [facility] Comment on above: Performed By: #### V ITAD #### [facility] [address] [address] [address] Silva Burnett FREE T4on 07-18-2022 Free T4 [Mass/Vol] 0.76 ng/dL Normal 0.76-1.46 [facility] Comment on above: Performed By: #### F T4 #### [facility] [address] [place] [address] Dr. Silva Burnett TSHon 07-18-2022 TSH 0.074 uIU/mL Critically low 0.358-3.740 [facility] Comment on above: Performed By: #### V ITAD #### [facility] [address] [place] [address] Dr. Silva Burnett TESTOSTERONE, FREE,DIRECT, T OTALon 07-02-2022 Free Testosterone(Direct ) 1.2 pg/mL Critically low 6.6-18.1 [facility] Comment on above: Result Comment: Perf ormed at: BN Performed By: #### B MP, BNP #### [facility] [address] [place] [address] Dr. Silva Burnett Testosterone [Mass/Vol] 103 ng/dL Critically low 264-916 [facility] Comment on above: Result Comment: Adul t male reference interval is based on a population of healthy nonobese males (BMI <30) between 19 and 39 years old. Keisha et.al. JCEM 2017,102;4594-4472. PMID: 71030906. Performed at: CB Performed By: #### B MP, BNP #### [facility] [address] [place] [address] Dr. Silva Burnett CORTISOLon 06-29-2022 Cortisol 9.8 ug/dL Normal [facility] Comment on above: Result Comment: Dale isol AM 6.2 - 19.4 Cortisol PM 2.3 - 11.9 Performed By: #### B MP, BNP #### [facility] [address] [place] [address] Dr. Silva Burnett BNPon 06-27-2022 Natriuretic peptide B (Bld) [Mass/Vol] 5384.0 pg/mL Critically high <=1,800.0 [facility] Comment on above: Performed By: #### B MP, BNP #### [facility] [address] [place] [address] Dr. Silva Burnett CBC AUTO DIFFon 06-27-2022 BASO # 0.0 103/ul Normal 0.0-0.1 [facility] Comment on above: Performed By: #### B MP, BNP #### [facility] [address] [place] [address] Dr. Silva Burnett Basophils/100 WBC (Bld) 0.6 % Normal 0.2-2.0 [facility] Comment on above: Performed By: #### B MP, BNP #### [facility] [address] [place] [address] Dr. Silva Burnett EO # 0.4 103/ul Normal 0.0-0.7 [facility] Comment on above: Performed By: #### B MP, BNP #### [facility] [address] [place] [address] Dr. Silva Burnett Eosinophils/100 WBC (Bld) 8.0 % Critically high 0.9-7.0 [facility] Comment on above: Performed By: #### B MP, BNP #### [facility] [address] [place] [address] Dr. Silva Burnett Erythrocyte distribution width (RBC) [Ratio] 15.3 % Critically high 11.0-15.0 [facility] Comment on above: Performed By: #### B MP, BNP #### [facility] [address] [place] [address] Dr. Silva Burnett Hematocrit (Bld) [Volume fraction] 41.0 % Critically low 42.0-54.0 [facility] Comment on above: Performed By: #### B MP, BNP #### [facility] [address] [place] [address] Dr. Silva Burnett Hemoglobin (Bld) [Mass/Vol] 12.8 g/dL Critically low 14.0-18.0 [facility] Comment on above: Performed By: #### B MP, BNP #### [facility] [address] [place] [address] Dr. Silva Burnett IG # 0.02 10e3/ul Normal 0.00-0.03 [facility] Comment on above: Performed By: #### B MP, BNP #### [facility] [address] [place] [address] Dr. Silva Burnett IG % 0.4 % Normal 0.0-0.5 [facility] Comment on above: Performed By: #### B MP, BNP #### [facility] [address] [place] [address] Dr. Silva Burnett LYMPH # 1.3 103/ul Normal 1.2-3.8 [facility] Comment on above: Performed By: #### B MP, BNP #### [facility] [address] [place] [address] Dr. Silva Burnett Lymphocytes/100 WBC (Bld) 25.8 % Normal 20.5-60.0 [facility] Comment on above: Performed By: #### B MP, BNP #### [facility] [address] [place] [address] Dr. Silva Burnett MANUAL DIFF REQ NO Normal [facility] Comment on above: Performed By: #### B MP, BNP #### [facility] [address] [place] [address] Dr. Silva Burnett MCH (RBC) [Entitic mass] 28.9 pg Normal 25.9-34.0 [facility] Comment on above: Performed By: #### B MP, BNP #### [facility] [address] [place] [address] Dr. Silva Burnett MCHC (RBC) [Mass/Vol] 31.2 g/dL Normal 29.9-35.2 [facility] Comment on above: Performed By: #### B MP, BNP #### [facility] [address] [place] [address] Dr. Silva Burnett MCV (RBC) [Entitic vol] 92.6 fL Normal 80.0-94.0 [facility] Comment on above: Performed By: #### B MP, BNP #### [facility] [address] [place] [address] Dr. Silva Burnett MONO # 0.6 103/ul Normal 0.3-0.8 [facility] Comment on above: Performed By: #### B MP, BNP #### [facility] [address] [place] [address] Dr. Silva Burnett Monocytes/100 WBC (Bld) 11.1 % Normal 1.7-12.0 [facility] Comment on above: Performed By: #### B MP, BNP #### [facility] [address] [place] [address] Dr. Silva Burnett NEUT # 2.8 103/ul Normal 1.4-6.5 [facility] Comment on above: Performed By: #### B MP, BNP #### [facility] [address] [place] [address] Dr. Silva Burnett Neutrophils/100 WBC (Bld) 54.1 % Normal 43.0-75.0 [facility] Comment on above: Performed By: #### B MP, BNP #### [facility] [address] [place] [address] Dr. Silva Burnett Platelet mean volume (Bld) [Entitic vol] 10.0 fL Normal 9.5-13.[address] [facility] Comment on above: Performed By: #### B MP, BNP #### [facility] [address] [place] [address] Dr. Silva Burnett PLT 144 103/ul Critically low 150-[address] [facility] Comment on above: Performed By: #### B MP, BNP #### [facility] [address] [place] [address] Dr. Silva Burnett RBC 4.43 106/ul Critically low 4.70-6.10 [facility] Comment on above: Performed By: #### B MP, BNP #### [facility] [address] [place] [address] Dr. Silva Burnett WBC 5.1 103/ul Normal 4.0-11.[address] [facility] Comment on above: Performed By: #### B MP, BNP #### [facility] [address] [place] [address] Dr. Silva Burnett PROF CHEM 8 (BAS METB)on Anion gap [Moles/Vol] 10.2 mmol/L Normal [facility] Comment on above: Performed By: #### B MP, BNP #### [facility] [address] [address] [address] Silva Burnett Calcium [Mass/Vol] 8.9 mg/dL Normal 8.5-10.1 [facility] Comment on above: Performed By: #### B MP, BNP #### [facility] [address] [address] [address] Silva Burnett Chloride [Moles/Vol] 104 mmol/L Normal 98-107 [facility] Comment on above: Performed By: #### B MP, BNP #### [facility] [address] [address] [address] Silva Burnett CO2 [Moles/Vol] 27.1 mmol/L Normal 21.0-32.0 [facility] Comment on above: Performed By: #### B MP, BNP #### [facility] [address] [address] [address] Silva Burnett Creatinine [Mass/Vol] 1.61 mg/dL Critically high 0.70-1.30 [facility] Comment on above: Performed By: #### B MP, BNP #### [facility] [address] [address] [address] Silva Burnett EGFR-AF IVORIAN 50 mL/min/1.73m2 Critically low >=[address] [facility] Comment on above: Performed By: #### B MP, BNP #### [facility] [address] [address] [address] Silva Burnett EGFR-NON AF IVORIAN 41 mL/min/1.73m2 Critically low >=[address] [facility] Comment on above: Performed By: #### B MP, BNP #### [facility] [address] [address] [address] Silva Burnett Glucose [Mass/Vol] 89 mg/dL Normal 74-106 [facility] Comment on above: Performed By: #### B MP, BNP #### [facility] [address] [place] [address] Dr. Silva Burnett Potassium [Moles/Vol] 4.3 mmol/L Normal 3.5-5.1 [facility] Comment on above: Performed By: #### B MP, BNP #### [facility] [address] [place] [address] Dr. Silva Burnett Sodium [Moles/Vol] 137 mmol/L Normal 136-145 [facility] Comment on above: Performed By: #### B MP, BNP #### [facility] [address] [place] [address] Dr. Silva Burnett Urea nitrogen [Mass/Vol] 28.0 mg/dL Critically high 7.0-18.0 [facility] Comment on above: Performed By: #### B MP, BNP #### [facility] [address] [place] [address] Dr. Silva Burnett Urea nitrogen/Creatinine [Mass ratio] 17.4 mg/mg Normal [facility] Comment on above: Performed By: #### B MP, BNP #### [facility] [address] [place] [address] Dr. Silva Burnett VITAMIN D 25 OHon 06-27-2022 VIT D 25-OH 85.2 ng/mL Normal [facility] Comment on above: Performed By: #### V ITAD #### [facility] [address] [place] [address] Dr. Silva Burnett VIT D RANGES SEE BELOW Normal [facility] Comment on above: Result Comment: <20 ng/mL Vit D deficient 20 - <30 ng/mL Vit D insufficient 30 - 100 ng/mL Vit D sufficient >100 ng/mL Potential Toxicity Performed By: #### V ITAD #### [facility] [address] [place] [address] Dr. Silva Burnett CREATININEon 06-14-2022 Creatinine [Mass/Vol] 1.71 mg/dL Critically high 0.70-1.30 [facility] Comment on above: Performed By: #### B MP, BNP #### [facility] [address] [place] [address] Dr. Silva Burnett EGFR-AF IVORIAN 47 mL/min/1.73m2 Critically low >=[address] [facility] Comment on above: Performed By: #### B MP, BNP #### [facility] [address] [place], [place] [address] Dr. Silva Burnett EGFR-NON AF IVORIAN 39 mL/min/1.73m2 Critically low >=60 [facility] Comment on above: Performed By: #### B MP, BNP #### [facility] [address] [place], [place] [address] Dr. Silva Burnett CTA NECK WO W [...] AYANA FERNANDEZ Date: 2022-06-14 16:[address] [facility] BASIC METABOLIC PANELon 09-0 Calcium [Mass/Vol] 8.8 mg/dL Normal 8.6-10.3 [facility] Comment on above: Order Comment: No: D o not add to previous draw Performed By: #### 2 5508, 48043, 34043, 88134, 44430, 15331 #### [facility] [address] [place] [id number], [facility] Chloride [Moles/Vol] 103 mmol/L Normal 98-107 [facility] Comment on above: Order Comment: No: D o not add to previous draw Performed By: #### 2 5508, 07423, 81162, 41203, 56913, 20485 #### [facility] [address] [place] [address], [place] CO2 [Moles/Vol] 28 mmol/L Normal 21-31 [facility] Comment on above: Order Comment: No: D o not add to previous draw Performed By: #### 2 5508, 77483, 06423, 19307, 14453, 87310 #### [facility] [address] [place] [id number], [facility] Creatinine [Mass/Vol] 1.47 mg/dL High 0.70-1.30 [facility] Comment on above: Order Comment: No: D o not add to previous draw Performed By: #### 2 5508, 15503, 56084, 47009, 62427, 00478 #### [facility] [address] [place] [address], [facility] EGFR 48 ml/min/1.73sq m Abnormal >60 [facility] Comment on above: Order Comment: No: D o not add to previous draw Result Comment: [facility]'s estimated glomerular filtration rate (eGFR) will [...] of individuals. Performed By: #### 2 5508, 83697, 41473, 75710, 64332, 89964 #### [facility] [address] [place] [address], [facility] Glucose [Mass/Vol] 110 mg/dL High 70-100 [facility] Comment on above: Order Comment: No: D o not add to previous draw Performed By: #### 2 5508, 34969, 95983, 50082, 95832, 52232 #### [facility] [address] [place] [address], [facility] Potassium [Moles/Vol] 4.3 mmol/L Normal 3.5-5.1 [facility] Comment on above: Order Comment: No: D o not add to previous draw Performed By: #### 2 5508, 79905, 69507, 54796, 70122, 02763 #### [facility] [address] [place] [address], [facility] Sodium [Moles/Vol] 136 mmol/L Normal 136-145 [facility] Comment on above: Order Comment: No: D o not add to previous draw Performed By: #### 2 5508, 33155, 88266, 69336, 42727, 01071 #### [facility] [address] [place] [address], [facility] Urea nitrogen [Mass/Vol] 35 mg/dL High 7-25 [facility] Comment on above: Order Comment: No: D o not add to previous draw Performed By: #### 2 5508, 82618, 35060, 53527, 99233, 75108 #### [facility] [address] [place] [address], [place] MAGNESIUM BLOODon 05-23-2022 Magnesium [Mass/Vol] 2.2 mg/dL Normal 1.9-2.7 [facility] Comment on above: Order Comment: No: D o not add to previous draw Performed By: #### 2 5508, 58724, 46073, 76930, 37589, 45400 #### [facility] [address] [place] [address], [facility] APTTon 05-22-2022 aPTT Coag (Bld) [Time] 28.0 s Normal 25.0-35.0 [facility] Comment on above: Order Comment: No: [...] THIS PURPOSE. Performed By: #### 2 5508, 24197, 08230, 30164, 62924, 78803 #### [facility] [address] [place] [address], [facility] BASIC METABOLIC PANELon Calcium [Mass/Vol] 9.0 mg/dL Normal 8.6-10.3 [facility] Comment on above: Order Comment: No: D o not add to previous draw Performed By: #### 2 5508, 61029, 10977, 99348, 78145, 97773 #### [facility] [address] [place] [address], [facility] Chloride [Moles/Vol] 101 mmol/L Normal 98-107 [facility] Comment on above: Order Comment: No: D o not add to previous draw Performed By: #### 2 5508, 81323, 62156, 92203, 94571, 06958 #### [facility] [address] [place] [address], [facility] CO2 [Moles/Vol] 29 mmol/L Normal 21-31 [facility] Comment on above: Order Comment: No: D o not add to previous draw Performed By: #### 2 5508, 01982, 97602, 62451, 97058, 30394 #### [facility] [address] [place] [address], [facility] Creatinine [Mass/Vol] 1.67 mg/dL High 0.70-1.30 [facility] Comment on above: Order Comment: No: D o not add to previous draw Performed By: #### 2 5508, 60181, 68064, 24544, 47864, 94097 #### [facility] [address] [place] [address], [facility] EGFR 41 ml/min/1.73sq m Abnormal >60 [facility] Comment on above: Order Comment: No: D o not add to previous draw Result Comment: [facility]'s estimated glomerular filtration rate (eGFR) will [...] of individuals. Performed By: #### 2 5508, 18314, 47887, 43518, 00106, 17923 #### [facility] [address] [place] [address], [facility] Glucose [Mass/Vol] 94 mg/dL Normal 70-100 [facility] Comment on above: Order Comment: No: D o not add to previous draw Performed By: #### 2 5508, 90264, 58665, 32673, 85701, 17193 #### [facility] [address] [place] [address], [facility] Potassium [Moles/Vol] 4.8 mmol/L Normal 3.5-5.1 [facility] Comment on above: Order Comment: No: D o not add to previous draw Performed By: #### 2 5508, 42826, 72173, 12205, 65075, 76947 #### [facility] [address] [place] [address], [facility] Sodium [Moles/Vol] 136 mmol/L Normal 136-145 [facility] Comment on above: Order Comment: No: D o not add to previous draw Performed By: #### 2 5508, 11658, 14302, 48781, 05216, 15082 #### [facility] [address] [place] [address], [facility] Urea nitrogen [Mass/Vol] 39 mg/dL High 7-25 [facility] Comment on above: Order Comment: No: D o not add to previous draw Performed By: #### 2 5508, 39874, 46661, 92671, 06348, 54060 #### [facility] [address] [place] [address], [facility] MAGNESIUM BLOODon 05-22-2022 Magnesium [Mass/Vol] 1.8 mg/dL Low 1.9-2.7 [facility] Comment on above: Order Comment: No: D o not add to previous draw Performed By: #### 2 5508, 86490, 86475, 16090, 79176, 03839 #### [facility] [address] [place] [address], [facility] APTTon 05-21-2022 aPTT Coag (Bld) [Time] 30.8 s Normal 25.0-35.0 [facility] Comment on above: Order Comment: No: [...] THIS PURPOSE. Performed By: #### 2 5508, 70188, 56106, 45102, 23552, 36634 #### [facility] [address] [place] [address], [facility] BASIC METABOLIC PANELon 09-0 -2021 Calcium [Mass/Vol] 8.8 mg/dL Normal 8.6-10.3 [facility] Comment on above: Order Comment: No: D o not add to previous draw Performed By: #### 2 5508, 98081, 09030, 58578, 32590, 64489 #### [facility] [address] [place] [address], [facility] Chloride [Moles/Vol] 103 mmol/L Normal 98-107 [facility] Comment on above: Order Comment: No: D o not add to previous draw Performed By: #### 2 5508, 22914, 38706, 20361, 66220, 26072 #### [facility] [address] [place] [address], [facility] CO2 [Moles/Vol] 26 mmol/L Normal 21-31 [facility] Comment on above: Order Comment: No: D o not add to previous draw Performed By: #### 2 5508, 73904, 65980, 32785, 97988, 94196 #### [facility] [address] [place] [address], [facility] Creatinine [Mass/Vol] 1.47 mg/dL High 0.70-1.30 [facility] Comment on above: Order Comment: No: D o not add to previous draw Performed By: #### 2 5508, 28020, 12770, 01386, 47039, 27480 #### [facility] [address] [place] [address], [place] EGFR 48 ml/min/1.73sq m Abnormal >60 [facility] Comment on above: Order Comment: No: D o not add to previous draw Result Comment: [facility]'s estimated glomerular filtration rate (eGFR) will [...] of individuals. Performed By: #### 2 5508, 04325, 13644, 99957, 86022, 90739 #### [facility] [address] [place] [address], [place] Glucose [Mass/Vol] 88 mg/dL Normal 70-100 [facility] Comment on above: Order Comment: No: D o not add to previous draw Performed By: #### 2 5508, 66016, 18183, 48456, 95804, 70234 #### [facility] [address] [place] [address], [place] Potassium [Moles/Vol] 3.9 mmol/L Normal 3.5-5.1 [facility] Comment on above: Order Comment: No: D o not add to previous draw Performed By: #### 2 5508, 92025, 44263, 97265, 34963, 97943 #### [facility] [address] [place] [address], [place] Sodium [Moles/Vol] 137 mmol/L Normal 136-145 [facility] Comment on above: Order Comment: No: D o not add to previous draw Performed By: #### 2 5508, 16021, 46384, 13462, 73284, 31340 #### [facility] [address] [place] [address], [place] Urea nitrogen [Mass/Vol] 45 mg/dL High 7-25 [facility] Comment on above: Order Comment: No: D o not add to previous draw Performed By: #### 2 5508, 22506, 78589, 42319, 01411, 95231 #### [facility] [address] [place] [address], [place] CBC COMPLETE BLOOD COUNTon 0 05-21-2022 Erythrocyte distribution width (RBC) [Ratio] 14.4 % Normal 11.5-15.0 [facility] Comment on above: Order Comment: No: D o not add to previous draw Performed By: #### 2 5508, 53831, 24503, 50429, 40621, 08474 #### [facility] [address] [place] [address], [facility] Hematocrit (Bld) [Volume fraction] 40.8 % Normal 39.0-50.0 [facility] Comment on above: Order Comment: No: D o not add to previous draw Performed By: #### 2 5508, 05769, 25292, 86333, 24378, 40398 #### [facility] [address] [place] [address], [facility] Hemoglobin (Bld) [Mass/Vol] 13.3 g/dL Normal 13.0-17.0 [facility] Comment on above: Order Comment: No: D o not add to previous draw Performed By: #### 2 5508, 76454, 67840, 42510, 00852, 24031 #### [facility] [address] [place] [address], [facility] MCH (RBC) [Entitic mass] 28.4 pg Normal 27.0-33.0 [facility] Comment on above: Order Comment: No: D o not add to previous draw Performed By: #### 2 5508, 85413, 85752, 97008, 19080, 08696 #### [facility] [address] [place] [address], [place] MCHC (RBC) [Mass/Vol] 32.6 g/dL Normal 32.0-35.0 [facility] Comment on above: Order Comment: No: D o not add to previous draw Performed By: #### 2 5508, 51312, 97542, 09325, 79388, 69445 #### [facility] [address] [place] [address], [facility] MCV (RBC) [Entitic vol] 87.0 fL Normal 82.0-98.0 [facility] Comment on above: Order Comment: No: D o not add to previous draw Performed By: #### 2 5508, 79553, 49329, 45024, 41381, 94452 #### [facility] [address] [place] [address], [facility] Nucleated RBC/100 WBC (Bld) [Ratio] 0 % Normal 0-0 [facility] Comment on above: Order Comment: No: D o not add to previous draw Performed By: #### 2 5508, 60866, 17981, 12406, 82673, 12573 #### [facility] [address] [place] [address], [facility] PLAT CNT 157 10*3/uL Normal 150-400 [facility] Comment on above: Order Comment: No: D o not add to previous draw Performed By: #### 2 5508, 47087, 15826, 69283, 48194, 92420 #### [facility] [address] [place] [address], [facility] RBC (Bld) [#/Vol] 4.69 10*6/uL Normal 4.20-5.70 [facility] Comment on above: Order Comment: No: D o not add to previous draw Performed By: #### 2 5508, 10997, 40669, 23697, 34507, 26678 #### [facility] [address] [place] [address], [facility] WBC (Bld) [#/Vol] 6.19 10*3/uL Normal 4.00-10.60 [facility] Comment on above: Order Comment: No: D o not add to previous draw Performed By: #### 2 5508, 90827, 21076, 34069, 81208, 91844 #### [facility] [address] [place] [id number], [facility] MAGNESIUM BLOODon 09-05-2022 Magnesium [Mass/Vol] 1.9 mg/dL Normal 1.9-2.7 [facility] Comment on above: Order Comment: No: D o not add to previous draw Performed By: #### 2 5508, 60023, 98967, 30649, 05729, 93646 #### [facility] [address] [place] [address], [facility] APTTon 05-20-2022 aPTT Coag (Bld) [Time] 28.4 s Normal 25.0-35.0 [facility] Comment on above: Order Comment: No: [...] THIS PURPOSE. Performed By: #### 2 5508, 06669, 23172, 38241, 47122, 38946 #### [facility] [address] [place] [address], [facility] BASIC METABOLIC PANELon Calcium [Mass/Vol] 9.0 mg/dL Normal 8.6-10.3 [facility] Comment on above: Order Comment: No: D o not add to previous draw Performed By: #### 1 0070, 48963, 67771 #### [facility] [address] [place] [address], [facility] Chloride [Moles/Vol] 105 mmol/L Normal 98-107 [facility] Comment on above: Order Comment: No: D o not add to previous draw Performed By: #### 1 0070, 08578, 82431 #### [facility] [address] [place] [address], [facility] CO2 [Moles/Vol] 26 mmol/L Normal 21-31 [facility] Comment on above: Order Comment: No: D o not add to previous draw Performed By: #### 1 0070, 52768, 35106 #### [facility] [address] [place] [address], [facility] Creatinine [Mass/Vol] 1.42 mg/dL High 0.70-1.30 [facility] Comment on above: Order Comment: No: D o not add to previous draw Performed By: #### 1 0070, 32574, 30321 #### [facility] [address] [place] [address], [facility] EGFR 50 ml/min/1.73sq m Abnormal >60 [facility] Comment on above: Order Comment: No: D o not add to previous draw Result Comment: [facility]'s estimated glomerular filtration rate (eGFR) will [...] of individuals. Performed By: #### 1 0070, 15072, 38142 #### [facility] [address] [place] [address], [facility] Glucose [Mass/Vol] 107 mg/dL High 70-100 [facility] Comment on above: Order Comment: No: D o not add to previous draw Performed By: #### 1 0070, 26105, 03084 #### [facility] [address] [place] [address], [facility] Potassium [Moles/Vol] 3.9 mmol/L Normal 3.5-5.1 [facility] Comment on above: Order Comment: No: D o not add to previous draw Performed By: #### 1 0070, 31898, 51256 #### [facility] [address] [place] [address], [facility] Sodium [Moles/Vol] 139 mmol/L Normal 136-145 [facility] Comment on above: Order Comment: No: D o not add to previous draw Performed By: #### 1 0070, 43462, 82767 #### [facility] [address] [place] [address], [facility] Urea nitrogen [Mass/Vol] 50 mg/dL High 7-25 [facility] Comment on above: Order Comment: No: D o not add to previous draw Performed By: #### 1 0070, 88041, 09157 #### [facility] [address] [place] [id number], [facility] CBC COMPLETE BLOOD COUNTon 0 05-20-2022 Erythrocyte distribution width (RBC) [Ratio] 14.3 % Normal 11.5-15.0 [facility] Comment on above: Order Comment: No: D o not add to previous draw Performed By: #### 2 5508, 27371, 37166, 60197, 71983, 93939 #### [facility] [address] [place] [address], [facility] Hematocrit (Bld) [Volume fraction] 44.1 % Normal 39.0-50.0 [facility] Comment on above: Order Comment: No: D o not add to previous draw Performed By: #### 2 5508, 87936, 06599, 69313, 89644, 16918 #### [facility] [address] [place] [address], [facility] Hemoglobin (Bld) [Mass/Vol] 14.5 g/dL Normal 13.0-17.0 [facility] Comment on above: Order Comment: No: D o not add to previous draw Performed By: #### 2 5508, 00198, 34433, 71883, 93769, 66822 #### [facility] [address] [place] [address], [place] IMM PLATELET FRAC 5.4 % Normal 0.8-6.3 [facility] Comment on above: Order Comment: No: D o not add to previous draw Performed By: #### 2 5508, 23187, 51634, 25485, 00269, 18202 #### [facility] [address] [place] [address], [facility] MCH (RBC) [Entitic mass] 29.1 pg Normal 27.0-33.0 [facility] Comment on above: Order Comment: No: D o not add to previous draw Performed By: #### 2 5508, 16466, 81047, 14112, 62590, 67540 #### [facility] [address] [place] [address], [facility] MCHC (RBC) [Mass/Vol] 32.9 g/dL Normal 32.0-35.0 [facility] Comment on above: Order Comment: No: D o not add to previous draw Performed By: #### 2 5508, 35688, 95052, 12423, 18780, 95858 #### [facility] [address] [place] [address], [facility] MCV (RBC) [Entitic vol] 88.6 fL Normal 82.0-98.0 [facility] Comment on above: Order Comment: No: D o not add to previous draw Performed By: #### 2 5508, 22059, 72142, 41231, 63567, 45320 #### [facility] [address] [place] [address], [facility] Nucleated RBC/100 WBC (Bld) [Ratio] 0 % Normal 0-0 [facility] Comment on above: Order Comment: No: D o not add to previous draw Performed By: #### 2 5508, 74008, 05648, 59827, 28740, 64583 #### [facility] [address] [place] [id number], [facility] PLAT CNT 138 10*3/uL Low 150-400 [facility] Comment on above: Order Comment: No: D o not add to previous draw Performed By: #### 2 5508, 64806, 61385, 39782, 50093, 58768 #### [facility] [address] [place] [address], [facility] RBC (Bld) [#/Vol] 4.98 10*6/uL Normal 4.20-5.70 [facility] Comment on above: Order Comment: No: D o not add to previous draw Performed By: #### 2 5508, 06027, 24920, 00387, 05936, 11518 #### [facility] [address] [place] [address], [facility] WBC (Bld) [#/Vol] 5.80 10*3/uL Normal 4.00-10.60 [facility] Comment on above: Order Comment: No: D o not add to previous draw Performed By: #### 2 5508, 76828, 83358, 37141, 89397, 93740 #### [facility] [address] [place] [address], [facility] MAGNESIUM BLOODon 05-20-2022 Magnesium [Mass/Vol] 2.0 mg/dL Normal 1.9-2.7 [facility] Comment on above: Order Comment: No: D o not add to previous draw Performed By: #### 1 0070, 36184, 44829 #### [facility] [address] [place] [address], [facility] PHOSPHORUS BLOODon Phosphate [Mass/Vol] 3.5 mg/dL Normal 2.5-5.0 [facility] Comment on above: Order Comment: No: D o not add to previous draw Performed By: #### 1 0070, 35491, 92050 #### [facility] [address] [place] [id number], [facility] APTTon 05-19-2022 aPTT Coag (Bld) [Time] 30.3 s Normal 25.0-35.0 [facility] Comment on above: Order Comment: No: [...] THIS PURPOSE. Performed By: #### 2 5508, 16901, 34273, 18160, 34104, 95064 #### [facility] [address] [place] [address], [facility] BASIC METABOLIC PANELon 09-0 -2021 Calcium [Mass/Vol] 8.5 mg/dL Low 8.6-10.3 [facility] Comment on above: Order Comment: No: D o not add to previous draw Performed By: #### 2 5508, 55843, 39681, 73083, 03133, 76342 #### [facility] [address] [place] [address], [place] Chloride [Moles/Vol] 104 mmol/L Normal 98-107 [facility] Comment on above: Order Comment: No: D o not add to previous draw Performed By: #### 2 5508, 69292, 58727, 03385, 55735, 28512 #### [facility] [address] [place] [address], [place] CO2 [Moles/Vol] 24 mmol/L Normal 21-31 [facility] Comment on above: Order Comment: No: D o not add to previous draw Performed By: #### 2 5508, 30424, 76138, 81664, 74752, 74388 #### [facility] [address] [place] [address], [place] Creatinine [Mass/Vol] 2.02 mg/dL High 0.70-1.30 [facility] Comment on above: Order Comment: No: D o not add to previous draw Performed By: #### 2 5508, 72942, 86429, 46327, 60761, 20706 #### [facility] [address] [place] [address], [facility] EGFR 33 ml/min/1.73sq m Abnormal >60 [facility] Comment on above: Order Comment: No: D o not add to previous draw Result Comment: [facility]'s estimated glomerular filtration rate (eGFR) will [...] of individuals. Performed By: #### 2 5508, 66442, 15751, 40401, 29056, 81934 #### [facility] [address] [place] [address], [facility] Glucose [Mass/Vol] 121 mg/dL High 70-100 [facility] Comment on above: Order Comment: No: D o not add to previous draw Performed By: #### 2 5508, 46853, 16168, 46568, 94700, 22658 #### [facility] [address] [place] [address], [facility] Potassium [Moles/Vol] 3.1 mmol/L Low 3.5-5.1 [facility] Comment on above: Order Comment: No: D o not add to previous draw Performed By: #### 2 5508, 45392, 09601, 92306, 29547, 36967 #### [facility] [address] [place] [address], [facility] Sodium [Moles/Vol] 137 mmol/L Normal 136-145 [facility] Comment on above: Order Comment: No: D o not add to previous draw Performed By: #### 2 5508, 61287, 05590, 65455, 79406, 12534 #### [facility] [address] [place] [address], [facility] Urea nitrogen [Mass/Vol] 61 mg/dL High 7-25 [facility] Comment on above: Order Comment: No: D o not add to previous draw Performed By: #### 2 5508, 49741, 51932, 05002, 03031, 64990 #### [facility] [address] [place], [place] [address] [place] [address] CBC COMPLETE BLOOD COUNTon 0 - Erythrocyte distribution width (RBC) [Ratio] 14.2 % Normal 11.5-15.0 [facility] Comment on above: Order Comment: No: D o not add to previous draw Performed By: #### 2 5508, 00996, 18047, 68982, 32175, 74915 #### [facility] [address] Hematocrit (Bld) [Volume fraction] 41.1 % Normal 39.0-50.0 [facility] Comment on above: Order Comment: No: D o not add to previous draw Performed By: #### 2 5508, 43988, 49341, 03253, 57729, 45590 #### [facility] [address] [place] [address], [facility] Hemoglobin (Bld) [Mass/Vol] 13.8 g/dL Normal 13.0-17.0 [facility] Comment on above: Order Comment: No: D o not add to previous draw Performed By: #### 2 5508, 32559, 26530, 53113, 32562, 75987 #### [facility] [address] [place] [id number], [facility] IMM PLATELET FRAC 4.8 % Normal 0.8-6.3 [facility] Comment on above: Order Comment: No: D o not add to previous draw Performed By: #### 2 5508, 76457, 73180, 70780, 24833, 89015 #### [facility] [address] [place] [address], [facility] MCH (RBC) [Entitic mass] 29.0 pg Normal 27.0-33.0 [facility] Comment on above: Order Comment: No: D o not add to previous draw Performed By: #### 2 5508, 82830, 52450, 14449, 08392, 17828 #### [facility] [address] [place] [address], [facility] MCHC (RBC) [Mass/Vol] 33.6 g/dL Normal 32.0-35.0 [facility] Comment on above: Order Comment: No: D o not add to previous draw Performed By: #### 2 5508, 32947, 92175, 05091, 27475, 37837 #### [facility] [address] [place] [address], [facility] MCV (RBC) [Entitic vol] 86.3 fL Normal 82.0-98.0 [facility] Comment on above: Order Comment: No: D o not add to previous draw Performed By: #### 2 5508, 34653, 29987, 31100, 17205, 85509 #### [facility] [address] [facility] [place] [address], [facility] Nucleated RBC/100 WBC (Bld) [Ratio] 0 % Normal 0-0 [facility] Comment on above: Order Comment: No: D o not add to previous draw Performed By: #### 2 5508, 42939, 05976, 39710, 51424, 31285 #### [facility] [address] [place] [address], [facility] PLAT CNT 116 10*3/uL Low 150-400 [facility] Comment on above: Order Comment: No: D o not add to previous draw Performed By: #### 2 5508, 52098, 98004, 75072, 21060, 10720 #### [facility] [address] [place] [address], [facility] RBC (Bld) [#/Vol] 4.76 10*6/uL Normal 4.20-5.70 [facility] Comment on above: Order Comment: No: D o not add to previous draw Performed By: #### 2 5508, 25812, 67666, 44910, 63512, 62925 #### [facility] [address] [place] [address], [facility] WBC (Bld) [#/Vol] 5.16 10*3/uL Normal 4.00-10.60 [facility] Comment on above: Order Comment: No: D o not add to previous draw Performed By: #### 2 5508, 73319, 69928, 33410, 58813, 45883 #### [facility] [address] [place], [place] [address] [place] [address] Cardiovascular Lab Reporton 05-19-2022 Cardiovascular Lab Report [facility] MR #: [id number] Department of Physician: Vic Nunes M.D. Division of Service Date: 05/18/2022 Cardiology Birthdate: 1940 Adult Cardiovascular Room #: 4AB [id number] [place] [address] Cardiovascular Laboratory Report FINAL IMPRESSIONS: 1. 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 2. Two bypass grafts patent; left internal mammary artery graft to the left anterior descending and saphenous vein graft to the obtuse marginal. 3. Robust [id number] collaterals. 4. Patent left subclavian artery. RECOMMENDATIONS: [...] internal mammary artery graft, placement of a 6-Indian MynxGrip closure device. METHODS: After risks, benefits, and alternatives were explained, written informed consent was obtained. The patient was prepped and draped in usual sterile fashion over both groins. Using 1% lidocaine solution, local infiltration anesthesia was achieved. Using a modified Seldinger technique and a micropuncture kit and on the ultrasound guidance access to the right common femoral artery was obtained. A 6-Indian 11 cm sheath was inserted without difficulty. [...] conclude the procedure. All catheters removed. A 6-Indian MynxGrip closure device was deployed per protocol [...] Hall M.D. Date Trans: 05/19/2022 05:44 A/radha [id number] cc: Francisca Thompson M.D. [address] [place] [facility] [address] Normal [facility] MAGNESIUM BLOODon 05-19-2022 Magnesium [Mass/Vol] 2.0 mg/dL Normal 1.9-2.7 [facility] Comment on above: Order Comment: No: D o not add to previous draw Performed By: #### 1 0070, 64627 #### [facility] [address] [facility] [place] [address], [facility] APTTon 05-18-2022 aPTT Coag (Bld) [Time] 80.7 s Critically high 25.0-35.0 [facility] Comment on above: Order Comment: No: D o not add to previous draw Result Comment: Resu lt checked and called. Accurately read back by DREA SINGH RN ON 05/18/2022 AT 14:48 Performed By: #### 2 3748, 59691, 60949, 94476, 46375, 24231 #### [facility] [address] [place] [address], [facility] aPTT Coag (Bld) [Time] 135.2 s Critically high 25.0-35.0 [facility] Comment on above: Order Comment: No: D o not add to previous draw Result Comment: Resu lt checked and called. Accurately read back by Pepe Connolly rn at 0447 Performed By: #### 2 5508, 40794, 39021, 53463, 17705, 07056 #### [facility] [address] [place] [address], [facility] CBC COMPLETE BLOOD COUNTon 0 05-18-2022 Erythrocyte distribution width (RBC) [Ratio] 14.1 % Normal 11.5-15.0 [facility] Comment on above: Order Comment: No: D o not add to previous draw Performed By: #### 2 5508, 13403, 66187, 12106, 17693, 90547 #### [facility] [address] [place] [address], [facility] Hematocrit (Bld) [Volume fraction] 43.0 % Normal 39.0-50.0 [facility] Comment on above: Order Comment: No: D o not add to previous draw Performed By: #### 2 5508, 57712, 10014, 55069, 50560, 87312 #### [facility] [address] [place] [address], [facility] Hemoglobin (Bld) [Mass/Vol] 14.3 g/dL Normal 13.0-17.0 [facility] Comment on above: Order Comment: No: D o not add to previous draw Performed By: #### 2 5508, 66803, 35073, 92583, 29082, 64297 #### [facility] [address] [place] [address], [place] MCH (RBC) [Entitic mass] 28.8 pg Normal 27.0-33.0 [facility] Comment on above: Order Comment: No: D o not add to previous draw Performed By: #### 2 5508, 51800, 43315, 10022, 73189, 39394 #### [facility] [address] [place] [address], [place] MCHC (RBC) [Mass/Vol] 33.3 g/dL Normal 32.0-35.0 [facility] Comment on above: Order Comment: No: D o not add to previous draw Performed By: #### 2 5508, 45536, 46083, 80351, 21689, 79693 #### [facility] [address] [place] [id number], [facility] MCV (RBC) [Entitic vol] 86.5 fL Normal 82.0-98.0 [facility] Comment on above: Order Comment: No: D o not add to previous draw Performed By: #### 2 5508, 06314, 67360, 08492, 61816, 66347 #### [facility] [address] [place] [address], [facility] Nucleated RBC/100 WBC (Bld) [Ratio] 0 % Normal 0-0 [facility] Comment on above: Order Comment: No: D o not add to previous draw Performed By: #### 2 5508, 44999, 90806, 60872, 13521, 02918 #### [facility] [address] [place] [id number], [place] PLAT CNT 105 10*3/uL Low 150-400 [facility] Comment on above: Order Comment: No: D o not add to previous draw Performed By: #### 2 5508, 68901, 81056, 53785, 26173, 75953 #### [facility] [address] [place] [id number], [facility] RBC (Bld) [#/Vol] 4.97 10*6/uL Normal 4.20-5.70 [facility] Comment on above: Order Comment: No: D o not add to previous draw Performed By: #### 2 5508, 67843, 08747, 88328, 57315, 77248 #### [facility] [address] [place] [address], [place] WBC (Bld) [#/Vol] 5.28 10*3/uL Normal 4.00-10.60 [facility] Comment on above: Order Comment: No: D o not add to previous draw Performed By: #### 2 5508, 38316, 11145, 44809, 32741, 62715 #### [facility] [address] POC GLUCOSE LABon 05-18-2022 Glucose [Mass/Vol] 92 mg/dL Normal 70-100 [facility] Comment on above: Performed By: #### 2 5508, 19922, 31602, 21299, 27371, 87279 #### [facility] [address] [place] [address], [facility] Glucose [Mass/Vol] 90 mg/dL Normal 70-100 [facility] Comment on above: Performed By: #### 2 5508, 41274, 37627, 19067, 27703, 90053 #### [facility] [address] [place] [address], [facility] PROTHROMBIN TIMEon INR Coag (PPP) [Relative time] 1.41 {INR} High 0.91-1.16 [facility] Comment on above: Order Comment: No: [...] CHEST 1995;108:[id number]. Performed By: #### 2 5508, 83703, 94763, 01012, 17520, 59364 #### [facility] [address] PT Coag (PPP) [Time] 17.2 s High 12.3-14.8 [facility] Comment on above: Order Comment: No: D o not add to previous draw Result Comment: ALL RESULTS MUST BE INTERPRETED WITH RESPECT TO BLOOD DRAWING ARTIFACT OR DILUTION ERROR OF ANTICOAGULANT AT THE TIME OF SAMPLING. Performed By: #### 2 5508, 43421, 39264, 95851, 10032, 33028 #### [facility] [address] UFH HEPARIN ASSAYon 05-18-20 22 UNFRACTIONATED HEPARIN >1.00 Critically high 0.30-0.70 [facility] Comment on above: Result Comment: Resu lt checked and called. Accurately read back by DREA SINGH RN ON 05/18/2022 AT 14:48 Rivaroxaban and Apixaban will interfere with the anti Xa assay used to monitor UFH and LMWH. Performed By: #### 2 5508, 31637, 67969, 09331, 85394, 63254 #### [facility] [address] [place] [address], [facility] UNFRACTIONATED HEPARIN >1.00 Critically high 0.30-0.70 [facility] Comment on above: Result Comment: Resu lt checked and called. Accurately read back by Pepe Connolly rn at 0447 Rivaroxaban and Apixaban will interfere with the anti Xa assay used to monitor UFH and LMWH. Performed By: #### 2 5508, 09639, 06736, 79585, 02350, 62603 #### [facility] [address] *BLOOD CULTUREon 05-17-2022 *BLOOD CULTURE Clinical Report: (D) Specimen: BLOOD CULTURE Collected: 05/17/2022 02:15 Status: Final Last Updated: 05/22/2022 07:50 CULT RES (Final) No Growth Day 5 Normal [facility] Comment on above: Performed By: #### 2 5508, 22618, 83267, 87098, 61598, 44443 #### [facility] [address] [place] [address], [facility] APTTon 05-17-2022 aPTT Coag (Bld) [Time] 147.6 s Critically high 25.0-35.0 [facility] Comment on above: Order Comment: No: D o not add to previous draw Result Comment: Resu lt checked and called. Accurately read back by drea singh rn on 05/17/2022 at 18:38 Performed By: #### 2 5508, 98297, 01575, 03336, 18060, 34338 #### [facility] [address] [place] [address], [facility] aPTT Coag (Bld) [Time] 103.1 s Critically high 25.0-35.0 [facility] Comment on above: Order Comment: No: D o not add to previous draw Result Comment: Resu lt checked and called. Accurately read back by DREA SINGH @ 1000 Performed By: #### 2 5508, 57947, 44049, 57054, 91798, 81463 #### [facility] [address] [facility] [place] [address], [facility] aPTT Coag (Bld) [Time] 47.9 s High 25.0-35.0 [facility] Comment on above: Order Comment: No: [...] THIS PURPOSE. Performed By: #### 2 5508, 58910, 90297, 56061, 55002, 45449 #### [facility] [address] BNP (B-TYPE NATRIURETIC PEPT TWIN)on 05-17-2022 Natriuretic peptide B (Bld) [Mass/Vol] 584 pg/mL High 0-100 [facility] Comment on above: Order Comment: No: D o not add to previous draw Result Comment: Give n the appropriate clinical setting a BNP result of >100 pg/mL indicates congestive heart failure. Performed By: #### 2 5508, 72857, 63347, 74385, 33401, 88339 #### [facility] [address] CBC W/DIFFon 05-17-2022 ABS IMM GRANS 0.0 10*3/uL Normal 0.0-0.2 [facility] Comment on above: Order Comment: No: D o not add to previous draw Performed By: #### 2 5508, 67621, 20935, 82654, 27263, 55813 #### [facility] [address] ABS NEUTROPHILS 3.6 10*3/uL Normal 1.6-7.6 [facility] Comment on above: Order Comment: No: D o not add to previous draw Performed By: #### 2 5508, 95145, 51388, 97055, 93324, 13180 #### [facility] [address] [place] [address], [facility] Basophils (Bld) [#/Vol] 0.0 10*3/uL Normal 0.0-0.2 [facility] Comment on above: Order Comment: No: D o not add to previous draw Performed By: #### 2 5508, 80666, 13611, 13448, 52829, 11291 #### [facility] [address] [place] [address], [facility] Basophils/100 WBC (Bld) 0.6 % Normal 0.0-1.0 [facility] Comment on above: Order Comment: No: D o not add to previous draw Performed By: #### 2 5508, 27115, 58250, 56247, 37280, 79137 #### [facility] [address] [place] [address], [facility] Eosinophils (Bld) [#/Vol] 0.0 10*3/uL Normal 0.0-0.5 [facility] Comment on above: Order Comment: No: D o not add to previous draw Performed By: #### 2 5508, 95238, 07956, 84951, 62325, 00710 #### [facility] [address] [place] [address], [facility] Eosinophils/100 WBC (Bld) 0.2 % Normal 0.0-6.0 [facility] Comment on above: Order Comment: No: D o not add to previous draw Performed By: #### 2 5508, 49741, 94669, 75785, 16068, 47090 #### [facility] [address] [place] [address], [facility] Erythrocyte distribution width (RBC) [Ratio] 13.9 % Normal 11.5-15.0 [facility] Comment on above: Order Comment: No: D o not add to previous draw Performed By: #### 2 5508, 71636, 13181, 39909, 12439, 02408 #### [facility] [address] [place] [id number], [facility] Hematocrit (Bld) [Volume fraction] 40.6 % Normal 39.0-50.0 [facility] Comment on above: Order Comment: No: D o not add to previous draw Performed By: #### 2 5508, 17827, 66771, 87840, 85604, 41789 #### [facility] [address] Hemoglobin (Bld) [Mass/Vol] 13.7 g/dL Normal 13.0-17.0 [facility] Comment on above: Order Comment: No: D o not add to previous draw Performed By: #### 2 5508, 84450, 57565, 08645, 25052, 40539 #### [facility] [address] [place] [address], [facility] IMM PLATELET FRAC 6.9 % High 0.8-6.3 [facility] Comment on above: Order Comment: No: D o not add to previous draw Performed By: #### 2 5508, 62216, 32357, 15266, 26964, 97218 #### [facility] [address] [place] [address], [facility] IMMATURE GRANS 0.8 % Normal 0.0-1.0 [facility] Comment on above: Order Comment: No: D o not add to previous draw Performed By: #### 2 5508, 80561, 52918, 04146, 93389, 58807 #### [facility] [address] [place] [address], [facility] Lymphocytes (Bld) [#/Vol] 0.8 10*3/uL Low 1.2-4.0 [facility] Comment on above: Order Comment: No: D o not add to previous draw Performed By: #### 2 5508, 19225, 98809, 71088, 93477, 87368 #### [facility] [address] [place] [address], [facility] Lymphocytes/100 WBC (Bld) 15.5 % Low 20.0-45.0 [facility] Comment on above: Order Comment: No: D o not add to previous draw Performed By: #### 2 5508, 39293, 92547, 99028, 53415, 33764 #### [facility] [address] [place] [address], [place] MCH (RBC) [Entitic mass] 29.3 pg Normal 27.0-33.0 [facility] Comment on above: Order Comment: No: D o not add to previous draw Performed By: #### 2 5508, 40814, 39692, 72646, 55147, 57036 #### [facility] [address] [place] [address], [facility] MCHC (RBC) [Mass/Vol] 33.7 g/dL Normal 32.0-35.0 [facility] Comment on above: Order Comment: No: D o not add to previous draw Performed By: #### 2 5508, 13564, 83903, 13880, 42259, 99691 #### [facility] [address] [place] [address], [facility] MCV (RBC) [Entitic vol] 86.9 fL Normal 82.0-98.0 [facility] Comment on above: Order Comment: No: D o not add to previous draw Performed By: #### 2 5508, 44413, 62709, 52181, 63700, 56570 #### [facility] [address] [place] [address], [facility] Monocytes (Bld) [#/Vol] 0.5 10*3/uL Normal 0.1-1.0 [facility] Comment on above: Order Comment: No: D o not add to previous draw Performed By: #### 2 5508, 32609, 84377, 74954, 09723, 13880 #### [facility] [address] [place] [id number], [facility] MONOS 9.7 % Normal 5.0-12.0 [facility] Comment on above: Order Comment: No: D o not add to previous draw Performed By: #### 2 5508, 26965, 32991, 69025, 60274, 71659 #### [facility] [address] [place] [id number], [facility] Neutrophils/100 WBC (Bld) 73.2 % High 40.0-72.0 [facility] Comment on above: Order Comment: No: D o not add to previous draw Performed By: #### 2 5508, 06184, 85178, 15692, 00862, 98209 #### [facility] [address] [place] [address], [facility] Nucleated RBC/100 WBC (Bld) [Ratio] 0 % Normal 0-0 [facility] Comment on above: Order Comment: No: D o not add to previous draw Performed By: #### 2 5508, 31012, 78874, 81845, 48962, 51829 #### [facility] [address] [place] [address], [facility] PLAT CNT 81 10*3/uL Low 150-400 [facility] Comment on above: Order Comment: No: D o not add to previous draw Performed By: #### 2 5508, 38693, 12568, 59979, 20755, 43136 #### [facility] [address] [place] [address], [facility] RBC (Bld) [#/Vol] 4.67 10*6/uL Normal 4.20-5.70 [facility] Comment on above: Order Comment: No: D o not add to previous draw Performed By: #### 2 5508, 03350, 87316, 63337, 51553, 62544 #### [facility] [address] [place] [id number], [facility] WBC (Bld) [#/Vol] 4.96 10*3/uL Normal 4.00-10.60 [facility] Comment on above: Order Comment: No: D o not add to previous draw Performed By: #### 2 5508, 31768, 30474, 22172, 20362, 55650 #### [facility] [address] [place] [address], [place] COMP METABOLIC PANELon 05-17 Albumin [Mass/Vol] 3.0 g/dL Low 3.5-5.7 [facility] Comment on above: Order Comment: No: D o not add to previous draw Performed By: #### 2 5508, 89194, 14104, 41272, 54573, 80362 #### [facility] [address] [place] [address], [place] ALKALINE PHOSPH 48 IU/L Normal 34-104 [facility] Comment on above: Order Comment: No: D o not add to previous draw Performed By: #### 2 5508, 35944, 52880, 66558, 57120, 75982 #### [facility] [address] [place] [address], [place] ALT [Catalytic activity/Vol] 11 U/L Normal 7-52 [facility] Comment on above: Order Comment: No: D o not add to previous draw Performed By: #### 2 5508, 75455, 14415, 48145, 06317, 65588 #### [facility] [address] [place] [address], [place] AST [Catalytic activity/Vol] 19 U/L Normal 13-39 [facility] Comment on above: Order Comment: No: D o not add to previous draw Performed By: #### 2 5508, 18784, 73427, 90668, 24677, 16976 #### [facility] [address] [place] [address], [place] Bilirubin [Mass/Vol] 0.7 mg/dL Normal 0.3-1.0 [facility] Comment on above: Order Comment: No: D o not add to previous draw Performed By: #### 2 5508, 60885, 43156, 34163, 76372, 75705 #### [facility] [address] [place] [address], [place] Calcium [Mass/Vol] 8.5 mg/dL Low 8.6-10.3 [facility] Comment on above: Order Comment: No: D o not add to previous draw Performed By: #### 2 5508, 73225, 29965, 75022, 27487, 40080 #### [facility] [address] [place] [address], [facility] Chloride [Moles/Vol] 104 mmol/L Normal 98-107 [facility] Comment on above: Order Comment: No: D o not add to previous draw Performed By: #### 2 5508, 94677, 70897, 03151, 52581, 10351 #### [facility] [address] [place] [address], [facility] CO2 [Moles/Vol] 19 mmol/L Low 21-31 [facility] Comment on above: Order Comment: No: D o not add to previous draw Performed By: #### 2 5508, 96604, 72958, 88000, 36066, 67209 #### [facility] [address] [place] [id number], [facility] Creatinine [Mass/Vol] 1.71 mg/dL High 0.70-1.30 [facility] Comment on above: Order Comment: No: D o not add to previous draw Performed By: #### 2 5508, 00050, 64978, 94489, 11908, 92181 #### [facility] [address] [place] [address], [facility] EGFR 40 ml/min/1.73sq m Abnormal >60 [facility] Comment on above: Order Comment: No: D o not add to previous draw Result Comment: [facility]'s estimated glomerular filtration rate (eGFR) will [...] of individuals. Performed By: #### 2 5508, 25920, 21566, 29999, 71135, 59107 #### [facility] [address] [place] [address], [place] Glucose [Mass/Vol] 96 mg/dL Normal 70-100 [facility] Comment on above: Order Comment: No: D o not add to previous draw Performed By: #### 2 5508, 56077, 51072, 90385, 92197, 56591 #### [facility] [address] [place] [address], [place] Potassium [Moles/Vol] 3.8 mmol/L Normal 3.5-5.1 [facility] Comment on above: Order Comment: No: D o not add to previous draw Performed By: #### 2 5508, 76827, 58152, 63793, 87852, 70394 #### [facility] [address] [place] [address], [place] Protein [Mass/Vol] 5.7 g/dL Low 6.0-8.3 [facility] Comment on above: Order Comment: No: D o not add to previous draw Performed By: #### 2 5508, 29164, 46254, 09725, 38122, 19570 #### [facility] [address] [place] [address], [place] Sodium [Moles/Vol] 133 mmol/L Low 136-145 [facility] Comment on above: Order Comment: No: D o not add to previous draw Performed By: #### 2 5508, 29055, 01983, 65181, 53550, 30994 #### [facility] [address] [place] [address], [place] Urea nitrogen [Mass/Vol] 57 mg/dL High 7-25 [facility] Comment on above: Order Comment: No: D o not add to previous draw Performed By: #### 2 5508, 82078, 93133, 88382, 07659, 96457 #### [facility] [address] [place] [address], [facility] CPKon 05-17-2022 CK [Catalytic activity/Vol] 44 U/L Normal 30-223 [facility] Comment on above: Order Comment: No: D o not add to previous draw Performed By: #### 2 5508, 00991, 38341, 92712, 43197, 55993 #### [facility] [address] [place] [address], [facility] FREE T4on 05-17-2022 Free T4 [Mass/Vol] 0.78 ng/dL Normal 0.71-1.85 [facility] Comment on above: Performed By: #### 2 5508, 62244, 06444, 81334, 11452, 41062 #### [facility] [address] [place] [address], [facility] HEMOGLOBIN A1Con 05-17-2022 Glucose [Moles/Vol] 117 mmol/L Normal [facility] Comment on above: Order Comment: No: D o not add to previous draw Performed By: #### 2 5508, 97533, 53554, 36635, 83256, 06421 #### [facility] [address] [place] [address], [facility] HbA1c (Bld) [Mass fraction] 5.7 % Normal 4.0-6.0 [facility] Comment on above: Order Comment: No: D o not add to previous draw Performed By: #### 2 5508, 44918, 85834, 43834, 73134, 48820 #### [facility] [address] [place] [address], [facility] LACTATE BLOODon 05-17-2022 Lactate [Moles/Vol] 1.0 mmol/L Normal .5-2.2 [facility] Comment on above: Order Comment: No: D o not add to previous draw Performed By: #### 2 5508, 44494, 44920, 93519, 74385, 91543 #### [facility] [address] [place] [address], [place] LIPID PROFILEon 05-17-2022 Cholesterol [Mass/Vol] 141 mg/dL Normal 120-200 [facility] Comment on above: Order Comment: No: D o not add to previous draw Result Comment: CHOL ESTEROL REFERENCE RANGE: 20 YEARS AND OLDER CARDIOVASCULAR RISK Less than 200 mg/dl Low Risk 200 to 239 mg/dl Borderline Risk 240 mg/dl and greater High Risk Performed By: #### 2 5508, 17615, 20095, 16944, 75457, 43029 #### [facility] [address] [place] [address], [place] Cholesterol in HDL [Mass/Vol] 22 mg/dL Low 23-92 [facility] Comment on above: Order Comment: No: D o not add to previous draw Result Comment: Slig ht variation in normal range could be due to gender and/or age. HDL CHOLESTEROL REFERENCE RANGE: 20 years and older Cardiovascular Risk > or =60 mg/dL Desirable 40 TO 59 mg/dL Low Risk <40 mg/dL High Risk Performed By: #### 2 5508, 73427, 54271, 52048, 11248, 20355 #### [facility] [address] [place] [address], [place] Cholesterol in LDL [Mass/Vol] 95 mg/dL Normal 0-130 [facility] Comment on above: Order Comment: No: D o not add to previous draw Result Comment: LDL IS A CALCULATION LDL IS ONLY VALID IF THE TRIG IS LESS THAN 400. Performed By: #### 2 5508, 56176, 04461, 78833, 10237, 94076 #### [facility] [address] [place] [address], [place] Cholesterol.total/C holesterol in HDL [Mass ratio] 6.4 {ratio} High .0-4.5 [facility] Comment on above: Order Comment: No: D o not add to previous draw Performed By: #### 2 5508, 10512, 99574, 25002, 87766, 80221 #### [facility] [address] [place] [address], [facility] NON-HDL CHOLESTEROL 119 mg/dL Normal [facility] Comment on above: Order Comment: No: D o not add to previous draw Performed By: #### 2 5508, 15786, 23383, 57568, 10397, 10430 #### [facility] [address] [facility] [place], [place] [address] [place] [address] Triglyceride [Mass/Vol] 122 mg/dL Normal 40-149 [facility] Comment on above: Order Comment: No: D o not add to previous draw Result Comment: TRIG LYCERIDE REFERENCE RANGE: 20 YEARS AND OLDER CARDIOVASCULAR RISK LESS THAN 150 mg/dl LOW RISK 150 TO 199 mg/dl BORDERLINE RISK 200 mg/dl AND GREATER HIGH RISK Performed By: #### 2 5508, 68057, 16355, 08530, 53617, 82494 #### [facility] [address] [facility] [place], [place] [address] [place] [address] VLDL CHOL 24 mg/dL Normal 0-40 [facility] Comment on above: Order Comment: No: D o not add to previous draw Performed By: #### 2 5508, 64845, 10499, 99957, 30317, 52620 #### [facility] [address] [facility] [place] [address], [facility] POC GLUCOSE LABon 05-17-2022 Glucose [Mass/Vol] 91 mg/dL Normal 70-100 [facility] Comment on above: Performed By: #### 2 5508, 02198, 41751, 49736, 81790, 55281 #### [facility] [address] [facility] [place] [address], [facility] PORTABLE CHEST 1 VIEWon PORTABLE CHEST 1 VIEW [facility] Department of Radiology [address] [place] [id number] Patient Name: JOSÉ MIGUEL ROTH : 1940 Sex: M Age: Race: White Pt. Location: [address] [place] [address] Patient Status: I Ordered Date: 05/17/2022 2:00:00 [...] report. Electronically signed: Obdulio Coughlin. Transcribed by: [email or web address], User Resident: LYNNETTE NORTH Electronically Signed by: OBDULIO COUGHLIN @ 05/17/2022 03:59 AM I personally read this/these film(s) with this resident Normal [facility] Comment on above: Order Comment: No: D o not add to previous draw PROTHROMBIN TIMEon INR Coag (PPP) [Relative time] 2.07 {INR} High 0.91-1.16 [facility] Comment on above: Order Comment: No: [...] CHEST 1995;108:[id number]. Performed By: #### 2 [id number], [id number], [id number], [id number], [id number], [id number] #### [facility] [address] [place] [address], [facility] PT Coag (PPP) [Time] 22.9 s High 12.3-14.8 [facility] Comment on above: Order Comment: No: D o not add to previous draw Result Comment: ALL RESULTS MUST BE INTERPRETED WITH RESPECT TO BLOOD DRAWING ARTIFACT OR DILUTION ERROR OF ANTICOAGULANT AT THE TIME OF SAMPLING. Performed By: #### 2 5508, 78851, 01565, 82660, 71805, 79898 #### [facility] [address] [place] [address], [facility] TROPONIN-Ion 05-17-2022 Troponin I.cardiac [Mass/Vol] 0.25 ng/mL Critically high 0.00-0.04 [facility] Comment on above: Order Comment: No: D o not add to previous draw Result Comment: M-SD EVIOUS CRITICAL RESULT REFERENCE RANGES: 0.00 - 0.04 ng/ml NORMAL 0.05 - 0.50 ng/ml INDETERMINATE > 0.50 ng/ml CONSISTENT WITH AN M.I. Performed By: #### 2 5508, 43506, 65685, 32769, 57328, 62446 #### [facility] [address] [place] [address], [facility] Troponin I.cardiac [Mass/Vol] 0.31 ng/mL Critically high 0.00-0.04 [facility] Comment on above: Order Comment: No: D o not add to previous draw Result Comment: M-TR OPONIN INITIAL CRITICAL HIGH; RESPUN AND RETESTED M-CRITICAL RESULT(S) REVIEWED, CALLED TO AND READ BACK BY ARELIS CLEMENTS AT 0345 REFERENCE RANGES: 0.00 - 0.04 ng/ml NORMAL 0.05 - 0.50 ng/ml INDETERMINATE > 0.50 ng/ml CONSISTENT WITH AN M.I. Performed By: #### 2 5508, 61691, 41975, 95700, 89232, 56185 #### [facility] [address] [place] [address], [facility] TSH3 WITH REFLEX FT4on 05-17 TSH 3RD GENERATION 0.19 uIU/mL Low 0.34-5.60 [facility] Comment on above: Order Comment: No: D o not add to previous draw Performed By: #### 2 5508, 94797, 01208, 24420, 83540, 64033 #### [facility] [address] [place] [address], [facility] UFH HEPARIN ASSAYon 05-17-20 22 UNFRACTIONATED HEPARIN >1.00 Critically high 0.30-0.70 [facility] Comment on above: Result Comment: Resu lt checked and called. Accurately read back by drea singh rn on 05/17/2022 at 18:38 Rivaroxaban and Apixaban will interfere with the anti Xa assay used to monitor UFH and LMWH. Performed By: #### 2 5508, 34261, 97535, 99333, 56672, 30464 #### [facility] [address] UNFRACTIONATED HEPARIN >1.00 Critically high 0.30-0.70 [facility] Comment on above: Result Comment: Resu lt checked and called. Accurately read back by DREA YOUNGERENS @ 1000 Rivaroxaban and Apixaban will interfere with the anti Xa assay used to monitor UFH and LMWH. Performed By: #### 2 5508, 48191, 55966, 04911, 35715, 80522 #### [facility] [address] [facility] [address] UNFRACTIONATED HEPARIN >1.00 Critically high 0.30-0.70 [facility] Comment on above: Result Comment: Resu lt checked and called. Accurately read back by Arelis Clements RN at 0251 PT on Elquis UFH = 2.79 for pharmacy use Rivaroxaban and Apixaban will interfere with the anti Xa assay used to monitor UFH and LMWH. Performed By: #### 2 5508, 73003, 86655, 74704, 56726, 83029 #### [facility] [address] [place] [address], [facility] URINALYSIS REFLEXon 05-17-20 22 Appearance (U) CLEAR Normal CLEAR [facility] Comment on above: Order Comment: No: D o not add to previous draw Performed By: #### 2 5508, 27139, 62387, 97376, 41476, 79094 #### [facility] [address] [facility] [place] [address], [facility] Bilirubin Ql (U) Negative Normal NEGATIVE [facility] Comment on above: Order Comment: No: D o not add to previous draw Performed By: #### 2 5508, 72297, 49759, 21519, 59867, 34989 #### [facility] [address] [place] [address], [facility] Color (U) YELLOW Normal YELLOW [facility] Comment on above: Order Comment: No: D o not add to previous draw Performed By: #### 2 5508, 87169, 13195, 19545, 95434, 64985 #### [facility] [address] [place] [address], [facility] EPIS NONE SEEN Normal FEW,OCC,NON E SEEN [facility] Comment on above: Order Comment: No: D o not add to previous draw Performed By: #### 2 5508, 23125, 89025, 06563, 95933, 25654 #### [facility] [address] [place] [address], [facility] Glucose Ql (U) Negative Normal NEGATIVE [facility] Comment on above: Order Comment: No: D o not add to previous draw Performed By: #### 2 5508, 35902, 63865, 82627, 26952, 01513 #### [facility] [address] [place] [address], [facility] Hemoglobin Ql (U) TRACE Abnormal NEGATIVE [facility] Comment on above: Order Comment: No: D o not add to previous draw Performed By: #### 2 5508, 75354, 43592, 08935, 13545, 96769 #### [facility] [address] [place] [address], [facility] KETONE Negative Normal NEGATIVE [facility] Comment on above: Order Comment: No: D o not add to previous draw Performed By: #### 2 5508, 24373, 98161, 97257, 08701, 87022 #### [facility] [address] [place] [address], [place] LE[place] MARQUITA Negative Normal NEGATIVE [facility] Comment on above: Order Comment: No: D o not add to previous draw Performed By: #### 2 5508, 01332, 99450, 55026, 37633, 25814 #### [facility] [address] [place] [address], [facility] MUCUS THREADS OCC Abnormal NONE SEEN [facility] Comment on above: Order Comment: No: D o not add to previous draw Performed By: #### 2 5508, 71423, 00686, 66466, 17414, 52241 #### [facility] [address] [place] [address], [facility] Nitrite Ql (U) Negative Normal NEGATIVE [facility] Comment on above: Order Comment: No: D o not add to previous draw Performed By: #### 2 5508, 25181, 09390, 30449, 14825, 95026 #### [facility] [address] [place] [address], [facility] pH (U) 5.5 [pH] Normal 5.0-8.0 [facility] Comment on above: Order Comment: No: D o not add to previous draw Performed By: #### 2 5508, 07044, 80370, 50358, 08429, 54399 #### [facility] [address] [place] [address], [facility] Protein Ql (U) 30 Abnormal NEGATIVE [facility] Comment on above: Order Comment: No: D o not add to previous draw Performed By: #### 2 5508, 02305, 38506, 76187, 92634, 28035 #### [facility] [address] [place] [address], [facility] RBC 3-5 Abnormal NONE SEEN [facility] Comment on above: Order Comment: No: D o not add to previous draw Performed By: #### 2 5508, 64668, 78370, 17482, 99762, 66775 #### [facility] [address] [place] [address], [facility] SPEC GRAV 1.015 Normal 1.015-1.020 [facility] Comment on above: Order Comment: No: D o not add to previous draw Performed By: #### 2 5508, 87744, 59791, 29902, 30804, 05948 #### [facility] [address] [place] [address], [facility] WBC UA 0-2 Abnormal NONE SEEN [facility] Comment on above: Order Comment: No: D o not add to previous draw Performed By: #### 2 5508, 68672, 18118, 89264, 39462, 14917 #### [facility] [address] [place] [address], [facility] BNPon 05-16-2022 Natriuretic peptide B (Bld) [Mass/Vol] 51000.0 pg/mL Critically high <=1,800.[address] [facility] Comment on above: Performed By: #### B MP, BNP #### [facility] [address] [place] [address] Dr. Silva Burnett CBC AUTO DIFFon 05-16-2022 BASO # 0.0 103/ul Normal 0.0-0.1 [facility] Comment on above: Performed By: #### V ITAD #### [facility] [address] [place] [address] Dr. Silva Burnett Basophils/100 WBC (Bld) 0.6 % Normal 0.2-2.0 [facility] Comment on above: Performed By: #### V ITAD #### [facility] [address] [place] [address] Dr. Silva Burnett EO # 0.0 103/ul Normal 0.0-0.7 [facility] Comment on above: Performed By: #### V ITAD #### [facility] [address] [place] [address] Dr. Silva Burnett Eosinophils/100 WBC (Bld) 0.1 % Critically low 0.9-7.0 [facility] Comment on above: Performed By: #### V ITAD #### [facility] [address] [place] [address] Dr. Silva Burnett Erythrocyte distribution width (RBC) [Ratio] 13.7 % Normal 11.0-15.0 [facility] Comment on above: Performed By: #### V ITAD #### [facility] [address] [place] [address] Dr. Silva Burnett Hematocrit (Bld) [Volume fraction] 45.5 % Normal 42.0-54.0 [facility] Comment on above: Performed By: #### V ITAD #### [facility] [address] [place] [address] Dr. Silva Burnett Hemoglobin (Bld) [Mass/Vol] 14.9 g/dL Normal 14.0-18.0 [facility] Comment on above: Performed By: #### V ITAD #### [facility] [address] [place] [address] Dr. Silva Burnett IG # 0.04 10e3/ul Critically high 0.00-0.03 [facility] Comment on above: Performed By: #### V ITAD #### [facility] [address] [place] [address] Dr. Silva Burnett IG % 0.6 % Critically high 0.0-0.5 [facility] Comment on above: Performed By: #### V ITAD #### [facility] [address] [place] [address] Dr. Silva Burnett LYMPH # 0.8 103/ul Critically low 1.2-3.[address] [facility] Comment on above: Performed By: #### V ITAD #### [facility] [address] [place] [address] Dr. Silva Burnett Lymphocytes/100 WBC (Bld) 11.9 % Critically low 20.5-60.0 [facility] Comment on above: Performed By: #### V ITAD #### [facility] [address] [place] [address] Dr. Silva Burnett MANUAL DIFF REQ NO Normal [facility] Comment on above: Performed By: #### V ITAD #### [facility] [address] [place] [address] Dr. Silva Burnett MCH (RBC) [Entitic mass] 29.0 pg Normal 25.9-34.[address] [facility] Comment on above: Performed By: #### V ITAD #### [facility] [address] [place] [address] Dr. Silva Burnett MCHC (RBC) [Mass/Vol] 32.7 g/dL Normal 29.9-35.[address] [facility] Comment on above: Performed By: #### V ITAD #### [facility] [address] [place] [address] Dr. Silva Burnett MCV (RBC) [Entitic vol] 88.7 fL Normal 80.0-94.[address] [facility] Comment on above: Performed By: #### V ITAD #### [facility] [address] [place] [address] Dr. Silva Burnett MONO # 0.4 103/ul Normal 0.3-0.[address] [facility] Comment on above: Performed By: #### V ITAD #### [facility] [address] [place] [address] Dr. Silva Burnett Monocytes/100 WBC (Bld) 6.5 % Normal 1.7-12.[address] [facility] Comment on above: Performed By: #### V ITAD #### [facility] [address] [place] [address] Dr. Silva Burnett NEUT # 5.4 103/ul Normal 1.4-6.[address] [facility] Comment on above: Performed By: #### V ITAD #### [facility] [address] [place] [address] Dr. Silva Burnett Neutrophils/100 WBC (Bld) 80.3 % Critically high 43.0-75.[address] [facility] Comment on above: Performed By: #### V ITAD #### [facility] [address] [place] [address] Dr. Silva Burnett Platelet mean volume (Bld) [Entitic vol] 11.5 fL Normal 9.5-13.[address] [facility] Comment on above: Performed By: #### V ITAD #### [facility] [address] [address] [address] Silva Burnett PLT 111 103/ul Critically low 150-450 [facility] Comment on above: Performed By: #### V ITAD #### [facility] [address] [address] [address] Silva Burnett RBC 5.13 106/ul Normal 4.70-6.10 [facility] Comment on above: Performed By: #### V ITAD #### [facility] [id number] Silva Burnett WBC 6.7 103/ul Normal 4.0-11.0 [facility] Comment on above: Performed By: #### V ITAD #### [facility] [address] [place] [address] HEAD WO CONon [...] by: LINDA JUNIOR Date: 2022-05-16 17:37 Normal [facility] CULTURE URINEon 05-16-2022 CULTURE URINE Culture Observations : NO GROWTH. Normal [facility] Comment on above: Performed By: #### V ITAD #### [facility] [address] [place] [address] Dr. Silva Burnett Covid-19 PCR (CVDTBH)on 04-18 SARS-CoV-2 (COVID-19) RNA BRANT+probe Ql (Unsp spec) Not detected Normal NOT DETECTED [facility] Comment on above: Result Comment: When diagnostic [...] for this test is supported by the [place] of Health and Human Service's declaration that [...] used). Performed By: #### C VDTBH #### [facility] [address] [place] [address] Dr. Silva Burnett ER URINE PROFILEon 2 Bilirubin Ql (U) Negative Normal NEGATIVE [facility] Comment on above: Performed By: #### B MP, BNP #### [facility] [address] [place] [address] Dr. Silva Burnett Clarity (U) CLEAR Normal CLEAR [facility] Comment on above: Performed By: #### B MP, BNP #### [facility] [address] [place] [address] Dr. Silva Burnett Color (U) DK. YELLOW Normal YELLOW [facility] Comment on above: Performed By: #### B MP, BNP #### [facility] [address] [place] [address] Dr. Silva Burnett ERUAHD A micrscopic examina tion will be performed if indicated. Normal [facility] Comment on above: Performed By: #### B MP, BNP #### [facility] [address] [place] [address] Dr. Silva Burnett Glucose Ql (U) Negative Normal NEGATIVE [facility] Comment on above: Performed By: #### B MP, BNP #### [facility] [address] [place] [address] Dr. Silva Burnett Hemoglobin Ql (U) TRACE-INTACT Abnormal NEGATIVE [facility] Comment on above: Performed By: #### B MP, BNP #### [facility] [address] [place] [address] Dr. Silva Burnett Ketones Ql (U) TRACE Abnormal NEGATIVE [facility] Comment on above: Performed By: #### B MP, BNP #### [facility] [address] [place] [address] Dr. Silva Burnett LEUKOCYTES Negative Normal NEGATIVE [facility] Comment on above: Performed By: #### B MP, BNP #### [facility] [address] [place] [address] Dr. Silva Burnett Nitrite Ql (U) Negative Normal NEGATIVE [facility] Comment on above: Performed By: #### B MP, BNP #### [facility] [address] [place] [address] Dr. Silva Burnett pH (U) 5.5 [pH] Normal 5-9 [facility] Comment on above: Performed By: #### B MP, BNP #### [facility] [address] [place] [address] Dr. Silva Burnett Protein (U) [Mass/Vol] 30 mg/dL Abnormal NEGATIVE/ TRACE [facility] Comment on above: Performed By: #### B MP, BNP #### [facility] [address] [place] [address] Dr. Silva Burnett SPEC GRAVITY 1.025 Normal 1.005-<=1.0 25 [facility] Comment on above: Performed By: #### B MP, BNP #### [facility] [address] [place] [address] Dr. Silva Burnett UR MICRO IND INDICATED Normal [facility] Comment on above: Performed By: #### B MP, BNP #### [facility] [address] [place] [address] Dr. Silva Burnett Urobilinogen Qn (U) 0.2 {Zaina'U}/dL Normal 0.2 - 1. 0 [facility] Comment on above: Performed By: #### B MP, BNP #### [facility] [address] [place] [address] Dr. Silva Burnett PROF 14(COMP METB)on 022 Albumin [Mass/Vol] 2.8 g/dL Critically low 3.4-5.[address] [facility] Comment on above: Performed By: #### B MP, BNP #### [facility] [address] [place] [address] Dr. Silva Burnett Albumin/Globulin [Mass ratio] 0.7 {ratio} Normal [facility] Comment on above: Performed By: #### B MP, BNP #### [facility] [address] [place] [address] Dr. Silva Burnett ALP [Catalytic activity/Vol] 69 U/L Normal 46-116 [facility] Comment on above: Performed By: #### B MP, BNP #### [facility] [address] [place] [address] Dr. Silva Burnett ALT [Catalytic activity/Vol] 16 U/L Normal 16-63 [facility] Comment on above: Performed By: #### B MP, BNP #### [facility] [address] [place] [address] Dr. Silva Burnett Anion gap [Moles/Vol] 15.2 mmol/L Normal [facility] Comment on above: Performed By: #### B MP, BNP #### [facility] [address] [place] [address] Dr. Silva Burnett AST [Catalytic activity/Vol] 30 U/L Normal 15-37 [facility] Comment on above: Performed By: #### B MP, BNP #### [facility] [address] [place] [address] Dr. Silva Burnett Bilirubin [Mass/Vol] 0.9 mg/dL Normal 0.2-1.0 [facility] Comment on above: Performed By: #### B MP, BNP #### [facility] [address] [address] [address] Silva Burnett Calcium [Mass/Vol] 9.0 mg/dL Normal 8.5-10.1 [facility] Comment on above: Performed By: #### B MP, BNP #### [facility] [address] [address] [address] Silva Burnett Chloride [Moles/Vol] 98 mmol/L Normal 98-107 [facility] Comment on above: Performed By: #### B MP, BNP #### [facility] [address] [place] [address] Dr. Silva Burnett CO2 [Moles/Vol] 22.9 mmol/L Normal 21.0-32.0 [facility] Comment on above: Performed By: #### B MP, BNP #### [facility] [address] [place] [address] Dr. Silva Burnett Creatinine [Mass/Vol] 2.20 mg/dL Critically high 0.70-1.30 [facility] Comment on above: Performed By: #### B MP, BNP #### [facility] [address] [place] [address] Dr. Silva Burnett EGFR-AF IVORIAN 35 mL/min/1.73m2 Critically low >=60 [facility] Comment on above: Performed By: #### B MP, BNP #### [facility] [address] [place] [address] Dr. Silva Burnett EGFR-NON AF IVORIAN 29 mL/min/1.73m2 Critically low >=60 [facility] Comment on above: Performed By: #### B MP, BNP #### [facility] [address] [place] [address] Dr. Silva Burnett Globulin (S) [Mass/Vol] 4.0 g/dL Normal [facility] Comment on above: Performed By: #### B MP, BNP #### [facility] [address] [place] [address] Dr. Silva Burnett Glucose [Mass/Vol] 148 mg/dL Critically high 74-106 T [facility] Comment on above: Performed By: #### B MP, BNP #### [facility] [address] [place] [address] Dr. Silva Burnett Potassium [Moles/Vol] 4.1 mmol/L Normal 3.5-5.1 [facility] Comment on above: Performed By: #### B MP, BNP #### [facility] [address] [place] [address] Dr. Silva Burnett Protein [Mass/Vol] 6.8 g/dL Normal 6.4-8.2 [facility] Comment on above: Performed By: #### B MP, BNP #### [facility] [address] [place] [address] Dr. Silva Burnett Sodium [Moles/Vol] 132 mmol/L Critically low 136-145 Th [facility] Comment on above: Performed By: #### B MP, BNP #### [facility] [address] [place] [address] Dr. Silva Burnett Urea nitrogen [Mass/Vol] 60.0 mg/dL Critically high 7.0-18.0 [facility] Comment on above: Performed By: #### B MP, BNP #### [facility] [address] [place] [address] Dr. Silva Burnett Urea nitrogen/Creatinine [Mass ratio] 27.3 mg/mg Normal [facility] Comment on above: Performed By: #### B MP, BNP #### [facility] [address] [place] [address] Dr. Silva Burnett PROTIMEon 05-16-2022 INR Coag (PPP) [Relative time] 1.43 {INR} Normal [facility] Comment on above: Performed By: #### V ITAD #### [facility] [address] [place] [address] Dr. Silva Burnett INR GUIDELINES SEE BELOW Normal [facility] Comment on above: Result Comment: EDMOND RED INR: 2.0 - 3.0 CONDITIONS NOT LISTED BELOW 2.5 - 3.5 FOR PROSTHETIC HEART VALVE REPLACEMENT 2.5 - 3.5 RECURRENT THROMBOSIS Performed By: #### V ITAD #### [facility] [address] [place] [address] Dr. Silva Burnett PT Coag (PPP) [Time] 15.1 s Critically high 9.0-11.6 [facility] Comment on above: Performed By: #### V ITAD #### [facility] [address] [place] [address] Dr. Silva Burnett PTTon 05-16-2022 aPTT Coag (Bld) [Time] 35.6 s Normal 22.3-36.2 [facility] Comment on above: Performed By: #### V ITAD #### [facility] [address] [place] [address] Dr. Silva Burnett TROPONIN, HIGH SENSITIVITYon 05-16-2022 HSTROP 895.9 pg/mL Critically high 4.0-76.1 [facility] Comment on above: Result Comment: CUT- OFF POINTS HAVE BEEN ESTABLISHED BASED ON THE FOURTH UNIVERSAL DEFINITIONS OF MYOCARDIAL INFARCTION. THE UPPER REFERENCE LIMIT (URL) OF TROPONIN, DEFINED THE 99TH PERCENTILE OF cTnI DISTRIBUTION IN A REFERENCE POPULATION, HAS BEEN CONFIRMED THE DECISION THRESHOLD FOR CT DIAGNOSIS. Performed By: #### B MP, BNP #### [facility] [address] [place] [address] Dr. Silva Burnett HSTROP 1000.5 pg/mL Critically high 4.0-76.1 [facility] Comment on above: Result Comment: CUT- OFF POINTS HAVE BEEN ESTABLISHED BASED ON THE FOURTH UNIVERSAL DEFINITIONS OF MYOCARDIAL INFARCTION. THE UPPER REFERENCE LIMIT (URL) OF TROPONIN, DEFINED THE 99TH PERCENTILE OF cTnI DISTRIBUTION IN A REFERENCE POPULATION, HAS BEEN CONFIRMED THE DECISION THRESHOLD FOR CT DIAGNOSIS. Performed By: #### B MP, BNP #### [facility] [address] [place] [address] Dr. Silva Burnett URINE MICROSCOPIC ONLYon BACTERIA TRACE Abnormal NONE SEEN [facility] Comment on above: Performed By: #### B MP, BNP #### [facility] [address] [place] [address] Dr. Silva Burnett Bacteria identified Cx Nom (U) INDICATED Normal [facility] Comment on above: Performed By: #### B MP, BNP #### [facility] [address] [address] [address] Silva Burnett CAST SEEN Abnormal NONE SEEN [facility] Comment on above: Performed By: #### B MP, BNP #### [facility] [address] [address] [address] Silva Burnett Crystals LM Nom (Urine sed) NONE SEEN Normal NONE SEEN [facility] Comment on above: Performed By: #### B MP, BNP #### [facility] [address] [place] [address] Dr. Silva Burnett Epithelial cells LM Ql (Urine sed) FEW Abnormal NONE SEEN /RARE [facility] Comment on above: Performed By: #### B MP, BNP #### [facility] [address] [place] [address] Dr. Silva Burnett HYALINE CAST FEW Normal [facility] Comment on above: Performed By: #### B MP, BNP #### [facility] [address] [place] [address] Dr. Silva Burnett MUCOUS SMALL Abnormal NONE SEEN [facility] Comment on above: Performed By: #### B MP, BNP #### [facility] [address] [place] [address] Dr. Silva Burnett RBC 0-2 Normal 0-[address] [facility] Comment on above: Performed By: #### B MP, BNP #### [facility] [address] [place] [address] Dr. Silva Burnett WBC 5-10 Abnormal NONE SEEN [facility] Comment on above: Performed By: #### B MP, BNP #### [facility] [address] [place] [address] Dr. Silva Burnett XR CHEST 1 Von [...] AYANA FERNANDEZ Date: 2022-05-16 15:[address] [facility] BNPon 05-14-2022 NT PRO BNP >21671.0 Critically high <=1,800.0 [facility] Comment on above: Performed By: #### B MP, BNP #### [facility] [address] [place] [address] Dr. Silva Burnett CBC AUTO DIFFon 05-14-2022 BASO # 0.0 103/ul Normal 0.0-0.[address] [facility] Comment on above: Performed By: #### B MP, BNP #### [facility] [address] [place] [address] Dr. Silva Burnett Basophils/100 WBC (Bld) 0.3 % Normal 0.2-2.[address] [facility] Comment on above: Performed By: #### B MP, BNP #### [facility] [address] [place] [address] Dr. Silva Burnett EO # 0.0 103/ul Normal 0.0-0.[address] [facility] Comment on above: Performed By: #### B MP, BNP #### [facility] [address] [place] [address] Dr. Silva Burnett Eosinophils/100 WBC (Bld) 0.0 % Critically low 0.9-7.[address] [facility] Comment on above: Performed By: #### B MP, BNP #### [facility] [address] [place] [address] Dr. Silva Burnett Erythrocyte distribution width (RBC) [Ratio] 13.6 % Normal 11.0-15.[address] [facility] Comment on above: Performed By: #### B MP, BNP #### [facility] [address] [place] [address] Dr. Silva Burnett Hematocrit (Bld) [Volume fraction] 41.8 % Critically low 42.0-54.[address] [facility] Comment on above: Performed By: #### B MP, BNP #### [facility] [address] [address] [address] Silva Burnett Hemoglobin (Bld) [Mass/Vol] 13.6 g/dL Critically low 14.0-18.0 [facility] Comment on above: Performed By: #### B MP, BNP #### [facility] [address] [address] [address] Silva Burnett IG # 0.04 10e3/ul Critically high 0.00-0.03 [facility] Comment on above: Performed By: #### B MP, BNP #### [facility] [address] [place] [address] Dr. Silva Burnett IG % 0.5 % Normal 0.0-0.5 [facility] Comment on above: Performed By: #### B MP, BNP #### [facility] [address] [place] [address] Dr. Silva Burnett LYMPH # 0.5 103/ul Critically low 1.2-3.8 [facility] Comment on above: Performed By: #### B MP, BNP #### [facility] [address] [place] [address] Dr. Silva Burnett Lymphocytes/100 WBC (Bld) 7.1 % Critically low 20.5-60.0 [facility] Comment on above: Performed By: #### B MP, BNP #### [facility] [address] [place] [address] Dr. Silva Burnett MANUAL DIFF REQ NO Normal [facility] Comment on above: Performed By: #### B MP, BNP #### [facility] [address] [place] [address] Dr. Silva Burnett MCH (RBC) [Entitic mass] 29.4 pg Normal 25.9-34.0 [facility] Comment on above: Performed By: #### B MP, BNP #### [facility] [address] [place] [address] Dr. Silva Burnett MCHC (RBC) [Mass/Vol] 32.5 g/dL Normal 29.9-35.2 [facility] Comment on above: Performed By: #### B MP, BNP #### [facility] [address] [address] [address] Silva Burnett MCV (RBC) [Entitic vol] 90.3 fL Normal 80.0-94.0 [facility] Comment on above: Performed By: #### B MP, BNP #### [facility] [address] [address] [address] Silva Burnett MONO # 0.4 103/ul Normal 0.3-0.8 [facility] Comment on above: Performed By: #### B MP, BNP #### [facility] [address] [address] [address] Silva Burnett Monocytes/100 WBC (Bld) 5.4 % Normal 1.7-12.0 [facility] Comment on above: Performed By: #### B MP, BNP #### [facility] [address] [place] [address] Dr. Silva Burnett NEUT # 6.6 103/ul Critically high 1.4-6.5 [facility] Comment on above: Performed By: #### B MP, BNP #### [facility] [address] [place] [address] Dr. Silva Burnett Neutrophils/100 WBC (Bld) 86.7 % Critically high 43.0-75.0 [facility] Comment on above: Performed By: #### B MP, BNP #### [facility] [address] [place] [address] Dr. Silva Burnett Platelet mean volume (Bld) [Entitic vol] 10.4 fL Normal 9.5-13.[address] [facility] Comment on above: Performed By: #### B MP, BNP #### [facility] [address] [place] [address] Dr. Silva Burnett PLT 110 103/ul Critically low 150-450 [facility] Comment on above: Performed By: #### B MP, BNP #### [facility] [address] [place] [address] Dr. Silva Burnett RBC 4.63 106/ul Critically low 4.70-6.10 [facility] Comment on above: Performed By: #### B MP, BNP #### [facility] [address] [place] [address] Dr. Silva Burnett WBC 7.6 103/ul Normal 4.0-11.0 [facility] Comment on above: Performed By: #### B MP, BNP #### [facility] [address] [place] [address] Dr. Silva Burnett CULTURE URINEon 05-14-2022 CULTURE URINE Culture Observations : NO GROWTH. Normal [facility] Comment on above: Performed By: #### V ITAD #### [facility] [address] [place] [address] Dr. Silva Burnett IRONon 05-14-2022 Iron [Mass/Vol] 18.0 ug/dL Critically low 65.0-175.0 [facility] Comment on above: Performed By: #### I CUBA #### [facility] [address] [place] [address] Dr. Silva Burnett PROF 14(COMP METB)on 022 Albumin [Mass/Vol] 3.4 g/dL Normal 3.4-5.0 [facility] Comment on above: Performed By: #### B MP, BNP #### [facility] [address] [place] [address] Dr. Silva Burnett Albumin/Globulin [Mass ratio] 0.8 {ratio} Normal [facility] Comment on above: Performed By: #### B MP, BNP #### [facility] [address] [place] [address] Dr. Silva Burnett ALP [Catalytic activity/Vol] 77 U/L Normal 46-[address] [facility] Comment on above: Performed By: #### B MP, BNP #### [facility] [address] [place] [address] Dr. Silva Burnett ALT [Catalytic activity/Vol] 16 U/L Normal 16-63 [facility] Comment on above: Performed By: #### B MP, BNP #### [facility] [address] [place] [address] Dr. Silva Burnett Anion gap [Moles/Vol] 13.3 mmol/L Normal [facility] Comment on above: Performed By: #### B MP, BNP #### [facility] [address] [place] [address] Dr. Silva Burnett AST [Catalytic activity/Vol] 23 U/L Normal 15-37 [facility] Comment on above: Performed By: #### B MP, BNP #### [facility] [address] [place] [address] Dr. Silva Burnett Bilirubin [Mass/Vol] 0.9 mg/dL Normal 0.2-1.0 [facility] Comment on above: Performed By: #### B MP, BNP #### [facility] [address] [place] [address] Dr. Silva Burnett Calcium [Mass/Vol] 9.3 mg/dL Normal 8.5-10.1 [facility] Comment on above: Performed By: #### B MP, BNP #### [facility] [address] [place] [address] Dr. Silva Burnett Chloride [Moles/Vol] 98 mmol/L Normal 98-107 [facility] Comment on above: Performed By: #### B MP, BNP #### [facility] [address] [place] [address] Dr. Silva Burnett CO2 [Moles/Vol] 26.0 mmol/L Normal 21.0-32.0 [facility] Comment on above: Performed By: #### B MP, BNP #### [facility] [address] [place] [address] Dr. Silva Burnett Creatinine [Mass/Vol] 1.84 mg/dL Critically high 0.70-1.30 [facility] Comment on above: Performed By: #### B MP, BNP #### [facility] [address] [place] [address] Dr. Silva Burnett EGFR-AF IVORIAN 43 mL/min/1.73m2 Critically low >=[address] [facility] Comment on above: Performed By: #### B MP, BNP #### [facility] [address] [place] [address] Dr. Silva Burnett EGFR-NON AF IVORIAN 36 mL/min/1.73m2 Critically low >=60 [facility] Comment on above: Performed By: #### B MP, BNP #### [facility] [address] [address] [address] Silva Burnett Globulin (S) [Mass/Vol] 4.1 g/dL Normal [facility] Comment on above: Performed By: #### B MP, BNP #### [facility] [address] [address] [address] Silva Burnett Glucose [Mass/Vol] 132 mg/dL Critically high 74-106 T [facility] Comment on above: Performed By: #### B MP, BNP #### [facility] [address] [place] [address] Dr. Silva Burnett Potassium [Moles/Vol] 4.3 mmol/L Normal 3.5-5.1 [facility] Comment on above: Performed By: #### B MP, BNP #### [facility] [address] [place] [address] Dr. Silva Burnett Protein [Mass/Vol] 7.5 g/dL Normal 6.4-8.2 [facility] Comment on above: Performed By: #### B MP, BNP #### [facility] [address] [place] [address] Dr. Silva Burnett Sodium [Moles/Vol] 133 mmol/L Critically low 136-145 Th [facility] Comment on above: Performed By: #### B MP, BNP #### [facility] [address] [place] [address] Dr. Silva Burnett Urea nitrogen [Mass/Vol] 38.0 mg/dL Critically high 7.0-18.0 [facility] Comment on above: Performed By: #### B MP, BNP #### [facility] [address] [place] [address] Dr. Silva Burnett Urea nitrogen/Creatinine [Mass ratio] 20.7 mg/mg Normal [facility] Comment on above: Performed By: #### B MP, BNP #### [facility] [address] [address] [address] Silva Burnett UA RANDOM W/MICROSCOPICon BACTERIA NONE SEEN Normal NONE SEEN [facility] Comment on above: Performed By: #### U AMIC #### [facility] [address] [place] [address] Dr. Silva Burnett Bilirubin Ql (U) Negative Normal NEGATIVE [facility] Comment on above: Performed By: #### U AMIC #### [facility] [address] [address] [address] Silva Burnett CAST NONE SEEN Normal NONE SEEN [facility] Comment on above: Performed By: #### U AMIC #### [facility] [address] [place] [address] Dr. Silva Burnett Clarity (U) CLEAR Normal CLEAR [facility] Comment on above: Performed By: #### U AMIC #### [facility] [address] [place] [address] Dr. Silva Burnett Color (U) YELLOW Normal YELLOW [facility] Comment on above: Performed By: #### U AMIC #### [facility] [address] [place] [address] Dr. Silva Burnett Crystals LM Nom (Urine sed) NONE SEEN Normal NONE SEEN [facility] Comment on above: Performed By: #### U AMIC #### [facility] [address] [place] [address] Dr. Silva Burnett Epithelial cells LM Ql (Urine sed) NONE SEEN Normal NONE SEEN /RARE [facility] Comment on above: Performed By: #### U AMIC #### [facility] [address] [place] [address] Dr. Silva Burnett Glucose Ql (U) Negative Normal NEGATIVE [facility] Comment on above: Performed By: #### U AMIC #### [facility] [address] [place] [address] Dr. Silva Burnett Hemoglobin Ql (U) MODERATE Abnormal NEGATIVE [facility] Comment on above: Performed By: #### U AMIC #### [facility] [address] [place] [address] Dr. Silva Burnett Ketones Ql (U) Negative Normal NEGATIVE [facility] Comment on above: Performed By: #### U AMIC #### [facility] [address] [place] [address] Dr. Silva Burnett LEUKOCYTES Negative Normal NEGATIVE [facility] Comment on above: Performed By: #### U AMIC #### [facility] [address] [place] [address] Dr. Silva Burnett MUCOUS NONE SEEN Normal NONE SEEN [facility] Comment on above: Performed By: #### U AMIC #### [facility] [address] [place] [address] Dr. Silva Burnett Nitrite Ql (U) Negative Normal NEGATIVE [facility] Comment on above: Performed By: #### U AMIC #### [facility] [address] [place] [address] Dr. Silva Burnett pH (U) 6.0 [pH] Normal 5-[address] [facility] Comment on above: Performed By: #### U AMIC #### [facility] [address] [place] [address] Dr. Silva Burnett RBC 0-2 Normal 0-2 [facility] Comment on above: Performed By: #### U AMIC #### [facility] [address] [place] [address] Dr. Silva Burnett SPEC GRAVITY 1.025 Normal 1.005-<=1.0 25 [facility] Comment on above: Performed By: #### U AMIC #### [facility] [address] [address] [address] Silva Burnett UA PROTEIN 30 mg/dl Abnormal NEGATIVE/ TRACE [facility] Comment on above: Performed By: #### U AMIC #### [facility] [address] [place] [address] Dr. Silva Burnett Urobilinogen Qn (U) 1.0 {Zaina'U}/dL Normal 0.2 - 1. 0 [facility] Comment on above: Performed By: #### U AMIC #### [facility] [address] [place] [address] Dr. Silva Burnett WBC NONE SEEN Normal NONE SEEN [facility] Comment on above: Performed By: #### U AMIC #### [facility] [address] [place] [address] Dr. Silva Burnett ICD REMOTE CHECKon 2 AV Delay Adaptive Paced Minimum (ms) 200 ms [facility] AV Delay Adaptive Sensed Minimum (ms) 170 ms [facility] Bj RA Pacing Amplitude (volts) 2 V [facility] Bj RA Pacing Polarity BI [facility] Bj RA Pacing Pulse Width (ms) 0.5 ms [facility] Bj RA Sensing Amplitude (mvolts) 0.25 mV [facility] Bj RA Sensing Polarity BI [facility] Bj RV Pacing Amplitude (volts) 2 V [facility] Bj RV Pacing Polarity BI [facility] Bj RV Pacing Pulse Width (ms) 0.5 ms [facility] Bj RV Sensing Amplitude (mvolts) 0.3 mV [facility] Bj RV Sensing Polarity BI [facility] Detection Configuration (Vent) 2 - Zone [facility] FastVT_Detection Interval 250 ms [facility] FastVT_Therapy Configuration 1 ATP(s) + 8 Shock(s) [facility] ICD FastVT DetectionStatus ENABLED [facility] ICD-AMS EPISODES 170 {beats}/min [facility] ICD-ATP Episodes (Vent) 0 [facility] ICD-ATRIALFIBRILLAT ION 21 [facility] ICD-ATRIALTACHYCARD IA 21 [facility] ICD-ATRIALTACHYCARD IA 6 [facility] ICD-Device Mfg BSX [facility] ICD-Fast Ventricular Tachycardia 6 [facility] ICD-LEADIMPEDANCEAT RIAL 709 ohm [facility] ICD-Percent Pacing (Atrial) 5 % [facility] ICD-Percent Pacing (Vent) 1 % [facility] ICD-Shocks Aborted (Vent) 0 [facility] [id number] D 0 [facility] ICD-SHOCKSABORTED 0 [facility] ICD-SHOCKSDELIVERED VENTRICULAR 0 [facility] ICD-Ventricular Fibrillation 0 [facility] Lead Impedance (RV) 416 ohm [facility] Lead Impedance High Voltage 47 ohm [facility] Lead1 Mfg BSX [facility] Lead2 Mfg BSX [facility] Location RV [facility] Location RA [facility] Lower Rate (bpm) 50 {beats}/min [facility] Max Sensor Rate (bpm) 130 {beats}/min [facility] MDT_PROG_TACHY_ZONE _DETECTIONS_STATUS ENABLED [facility] Model D142 INOGEN [facility] Model 0675 Britton 4-Front [facility] Model 7741 Ingevity MRI [facility] Pacing Mode DDDR [facility] Serial Number [id number] [facility] Serial Number [id number] [facility] Serial Number [id number] [facility] Test Charge Energy [address] [facility] Test Charge Time 10.1 s [facility] Therapy Status (Vent) Enabled [facility] Thresh RA Capture Amplitude (volts) 0.6 V [facility] Thresh RA Capture Duration (ms) 0.5 ms [facility] Thresh RV Capture Amplitude (VOLTS) 0.4 V [facility] Thresh RV Capture Duration (MS) 0.5 ms [facility] Tracking Rate (bpm) 130 {beats}/min [facility] VF Zone Detection Interval 250 ms [facility] VF Zone Therapy Configuration 1 ATP(s) + 8 Shock(s) [facility] No Panel Informationon 05-08 BLANK _ [facility] ICD-ATRIALTACHYCARD IA 0 [facility] ICD-Fast Ventricular Tachycardia 0 [facility] Implant Date 03/24/2019 [facility] ICD REMOTE CHECKon 2 AV Delay Adaptive Paced Minimum (ms) 200 ms [facility] AV Delay Adaptive Sensed Minimum (ms) 170 ms [facility] Bj RA Pacing Amplitude (volts) 2 V [facility] Bj RA Pacing Polarity BI [facility] Bj RA Pacing Pulse Width (ms) 0.5 ms [facility] Bj RA Sensing Amplitude (mvolts) 0.25 mV [facility] Bj RA Sensing Polarity BI [facility] Bj RV Pacing Amplitude (volts) 2 V [facility] Bj RV Pacing Polarity BI [facility] Bj RV Pacing Pulse Width (ms) 0.5 ms [facility] Bj RV Sensing Amplitude (mvolts) 0.3 mV [facility] Bj RV Sensing Polarity BI [facility] Detection Configuration (Vent) 2 - Zone [facility] FastVT_Detection Interval 250 ms [facility] FastVT_Therapy Configuration 1 ATP(s) + 8 Shock(s) [facility] ICD FastVT DetectionStatus ENABLED [facility] ICD-AMS EPISODES 170 {beats}/min [facility] ICD-ATP Episodes (Vent) 0 [facility] ICD-ATRIALFIBRILLAT ION 19 [facility] ICD-ATRIALTACHYCARD IA 19 [facility] ICD-ATRIALTACHYCARD IA 4 [facility] ICD-Device Mfg BSX [facility] ICD-Fast Ventricular Tachycardia 4 [facility] ICD-LEADIMPEDANCEAT RIAL 734 ohm [facility] ICD-Percent Pacing (Atrial) 6 % [facility] ICD-Percent Pacing (Vent) 1 % [facility] ICD-Shocks Aborted (Vent) 0 [facility] WNI-RUZLRI-ZIKZMDLS D 0 [facility] ICD-SHOCKSABORTED 0 [facility] ICD-SHOCKSDELIVERED VENTRICULAR 0 [facility] ICD-Ventricular Fibrillation 0 [facility] Lead Impedance (RV) 427 ohm [facility] Lead Impedance High Voltage 48 ohm [facility] Lead1 Mfg BSX [facility] Lead2 Mfg BSX [facility] Location RV [facility] Location RA [facility] Lower Rate (bpm) 50 {beats}/min [facility] Max Sensor Rate (bpm) 130 {beats}/min [facility] MDT_PROG_TACHY_ZONE _DETECTIONS_STATUS ENABLED [facility] Model D142 INOGEN [facility] Model 0675 Britton 4-Front [facility] Model 7741 Ingevity MRI [facility] Pacing Mode DDDR [facility] Serial Number [id number] [facility] Serial Number [id number] [facility] Serial Number [id number] [facility] Test Charge Energy [address] [facility] Test Charge Time 10 s [facility] Therapy Status (Vent) Enabled [facility] Thresh RA Capture Amplitude (volts) 0.6 V [facility] Thresh RA Capture Duration (ms) 0.5 ms [facility] Thresh RV Capture Amplitude (VOLTS) 0.4 V [facility] Thresh RV Capture Duration (MS) 0.5 ms [facility] Tracking Rate (bpm) 130 {beats}/min [facility] VF Zone Detection Interval 250 ms [facility] VF Zone Therapy Configuration 1 ATP(s) + 8 Shock(s) [facility] No Panel Informationon 02-06 BLANK _ [facility] ICD-ATRIALTACHYCARD IA 0 [facility] ICD-Fast Ventricular Tachycardia 0 [facility] Implant Date 03/24/2019 [facility] C [place] 12-23-2018 Wound Culture Microbiology [...] Locations R1: This test was performed at: [facility], [address] [place] [address], [id number] , [facility] Comment on above: Performed By: #### 2 [id number] #### [facility] [address] [place] [id number] Coding Summary.on 12-23-2018 Coding Summary. CODING DATE: 019 [facility] STATUS: Home (Routine DC) PAYOR: Medicare ADMIT [...] Tim CphT Date Saved: 12/23/2018 01:25 pm [facility] Vital Signs Date Time Vital Sign Value Performing Clinician Karel newell 01-10-2024 10:58-0400 Diastolic blood pressure 78 mm[Hg] ARACELI Fernandes MD Work Phone: [facility] 01-10-2024 10:58-0400 Systolic blood pressure 122 mm[Hg] ARACELI Fernandes MD Work Phone: [facility] 01-10-2024 10:55-0400 Body height 182.9 cm ARACELI Fernandes MD Work Phone: [facility] 01-10-2024 10:55-0400 Body mass index (BMI) [Ratio] 22.51 kg/m2 ARACELI Fernandes MD Work Phone: [facility] 01-10-2024 10:55-0400 Body weight 75.3 kg ARACELI Fernandes MD Work Phone: [facility] 01-10-2024 10:55-0400 Heart rate 88 /min ARACELI Fernandes MD Work Phone: [facility] 01-10-2024 10:55-0400 Respiratory rate 14 /min ARACELI Fernandes MD Work Phone: [facility] 01-10-2024 10:55-0400 SaO2% (BldA) [Mass fraction] 97 % ARACELI Fernandes MD Work Phone: [facility] 12-26-2023 12:00-0400 Body height 182.9 cm Efren Brady MD Work Phone: [facility] 12-26-2023 12:00-0400 Body weight 77.11 kg Efren Brady MD Work Phone: [facility] 12-26-2023 12:00-0400 Diastolic blood pressure 64 mm[Hg] Efren Brady MD Work Phone: [facility] 12-26-2023 12:00-0400 Heart rate 78 /min Efren Brady MD Work Phone: [facility] 12-26-2023 12:00-0400 Respiratory rate 12 /min Efren Brady MD Work Phone: [facility] 12-26-2023 12:00-0400 SaO2% (BldA) [Mass fraction] 97 % Efren Brady MD Work Phone: [facility] 12-26-2023 12:00-0400 Systolic blood pressure 128 mm[Hg] Efren Brady MD Work Phone: [facility] 12-12-2023 13:38-0400 Body height 182.9 cm Carmelina Carrasco APRN.CNP Work Phone: [facility] 12-12-2023 13:38-0400 Body weight 75.3 kg Carmelina Mayor [employer] Work Phone: [facility] 12-12-2023 13:38-0400 Diastolic blood pressure 76 mm[Hg] Carmelina Mayor [employer] Work Phone: [facility] 12-12-2023 13:38-0400 Heart rate 81 /min Carmelina Mayor [employer] Work Phone: [facility] [facility] 12-12-2023 13:38-0400 Respiratory rate 18 /min Carmelina Mayor MASTER [employer]CH[employer] Work Phone: [facility] 12-12-2023 13:38-0400 SaO2% (BldA) [Mass fraction] 97 % Carmelina Mayor MASTER MERCHAND[employer] Work Phone: [facility] 12-12-2023 13:38-0400 Systolic blood pressure 117 mm[Hg] Carmelina Mayor MASTER [employer]CH[employer] Work Phone: [facility] 10-29-2023 11:24-0500 Body height 182.9 cm Virgil Carrillo MD Work Phone: [facility] 10-29-2023 11:24-0500 Body weight 80.29 kg Virgil Carrillo MD Work Phone: [facility] 10-29-2023 11:24-0500 Diastolic blood pressure 62 mm[Hg] Virgil Carrillo MD Work Phone: [facility] 10-29-2023 11:24-0500 Heart rate 72 /min Virgil Carrillo MD Work Phone: [facility] 10-29-2023 11:24-0500 Respiratory rate 12 /min Virgil Carrillo MD Work Phone: [facility] 10-29-2023 11:24-0500 SaO2% (BldA) [Mass fraction] 98 % Virgil Carrillo MD Work Phone: [facility] 10-29-2023 11:24-0500 Systolic blood pressure 108 mm[Hg] Virgil Carrillo MD Work Phone: [facility] 04-26-2023 15:08-0400 Body height 182.9 cm Andreas Del Cid MD Work Phone: [facility] 04-26-2023 15:08-0400 Body weight 83.92 kg Andreas Del Cid MD Work Phone: [facility] 04-26-2023 15:08-0400 Diastolic blood pressure 62 mm[Hg] Andreas Del Cid MD Work Phone: [facility] 04-26-2023 15:08-0400 Heart rate 73 /min Andreas Del Cid MD Work Phone: [facility] 04-26-2023 15:08-0400 Respiratory rate 12 /min Andreas Del Cid MD Work Phone: [facility] 04-26-2023 15:08-0400 SaO2% (BldA) [Mass fraction] 98 % Andreas Del Cid MD Work Phone: [facility] 04-26-2023 15:08-0400 Systolic blood pressure 116 mm[Hg] Andreas Del Cid MD Work Phone: [facility] 10-25-2022 15:44-0500 Body height 182.9 cm Andreas Del Cid MD Work Phone: [facility] 10-25-2022 15:44-0500 Body weight 83.92 kg Andreas Del Cid MD Work Phone: [facility] 10-25-2022 15:44-0500 Diastolic blood pressure 66 mm[Hg] Andreas Del Cid MD Work Phone: [facility] 10-25-2022 15:44-0500 Heart rate 74 /min Andreas Del Cid MD Work Phone: [facility] 10-25-2022 15:44-0500 SaO2% (BldA) [Mass fraction] 98 % Andreas Del Cid MD Work Phone: [facility] 10-25-2022 15:44-0500 Systolic blood pressure 116 mm[Hg] Andreas Del Cid MD Work Phone: [facility] 10-02-2022 13:10-0500 Body temperature 96.69 [degF] ARACELI Kim MD Work Phone: [facility] 10-02-2022 13:10-0500 Body weight 86.18 kg ARACELI Kim MD Work Phone: [facility] 10-02-2022 13:10-0500 Diastolic blood pressure 71 mm[Hg] ARACELI Kim MD Work Phone: [facility] 10-02-2022 13:10-0500 Heart rate 66 /min ARACELI Kim MD Work Phone: [facility] 10-02-2022 13:10-0500 Respiratory rate 18 /min ARACELI Kim MD Work Phone: [facility] 10-02-2022 13:10-0500 SaO2% (BldA) [Mass fraction] 98 % ARACELI Kim MD Work Phone: [facility] 10-02-2022 13:10-0500 Systolic blood pressure 113 mm[Hg] ARACELI Kim MD Work Phone: [facility] 09-03-2022 11:35-0500 Body height 182.9 cm John Jefferson MD Work Phone: [facility] 09-03-2022 11:35-0500 Body temperature 97.9 [degF] John Jefferson MD Work Phone: [facility] 09-03-2022 11:35-0500 Body weight 84.01 kg John Jefferson MD Work Phone: [facility] 09-03-2022 11:35-0500 Diastolic blood pressure 78 mm[Hg] John Jefferson MD Work Phone: [facility] 09-03-2022 11:35-0500 Heart rate 82 /min John Jefferson MD Work Phone: [facility] 09-03-2022 11:35-0500 Respiratory rate 18 /min John Jefferson MD Work Phone: [facility] 09-03-2022 11:35-0500 SaO2% (BldA) [Mass fraction] 98 % John Jefferson MD Work Phone: [facility] 09-03-2022 11:35-0500 Systolic blood pressure 133 mm[Hg] John Jefferson MD Work Phone: [facility] 06-06-2022 14:32-0400 Body height 182.9 cm Andreas Del Cid MD Work Phone: [facility] 06-06-2022 14:32-0400 Body weight 76.66 kg Andreas Del Cid MD Work Phone: [facility] 06-06-2022 14:32-0400 Diastolic blood pressure 63 mm[Hg] Andreas Del Cid MD Work Phone: [facility] 06-06-2022 14:32-0400 Heart rate 71 /min Andreas Del Cid MD Work Phone: [facility] 06-06-2022 14:32-0400 SaO2% (BldA) [Mass fraction] 97 % Andreas Del Cid MD Work Phone: [facility] 06-06-2022 14:32-0400 Systolic blood pressure 101 mm[Hg] Andreas Del Cid MD Work Phone: [facility] 12-11-2021 13:58-0400 Body temperature 97.11 [degF] ARACELI Kim MD Work Phone: [facility] 12-11-2021 13:58-0400 Body weight 82.1 kg ARACELI Kim MD Work Phone: [facility] 12-11-2021 13:58-0400 Diastolic blood pressure 78 mm[Hg] ARACELI Kim MD Work Phone: [facility] 12-11-2021 13:58-0400 Heart rate 80 /min ARACELI Kim MD Work Phone: [facility] 12-11-2021 13:58-0400 Respiratory rate 18 /min ARACELI Kim MD Work Phone: [facility] 12-11-2021 13:58-0400 SaO2% (BldA) [Mass fraction] 99 % ARACELI Kim MD Work Phone: [facility] 12-11-2021 13:58-0400 Systolic blood pressure 130 mm[Hg] ARACELI Kim MD Work Phone: [facility] Encounters Encounter Date Encounter Type Care Provider Facility Start: 02-11-2024 Telephone encounter [facility] Work Phone: Cardiology Start: 02-05-2024 End: 02-06-2024 ambulatory [facility] Facility:[facility] Start: 02-05-2024 End: 02-06-2024 [facility] Facility:[facility] Start: 02-05-2024 End: 02-05-2024 Nursing evaluation of patient and report [facility] Work Phone: Cardiology Comment on above: EMPOWER Trial IRB# 1 [id number] Screening visit (Primary Dx) Start: 02-05-2024 End: 02-05-2024 Patient encounter procedure [facility] Work Phone: [facility] Start: 02-03-2024 End: 02-03-2024 [facility] Start: 01-30-2024 End: 01-30-2024 Nursing evaluation of patient and report [facility] Work Phone: Cardiology Comment on above: [id number] Empower Study (Primary Dx) Severe mitral regurg itation (Primary Dx); Examination of participant in clinical trial; SANTILLAN (dyspnea on exertion) Start: 01-30-2024 Patient encounter procedure Andrés Savage MD Work Phone: [facility] Start: 01-30-2024 End: 01-30-2024 [facility] Start: 01-30-2024 Encounter for examin ation for normal comparison and [facility] Start: 01-30-[facility]24 End: 01-30-2024 Patient entered into trial [facility] Work Phone: [facility] Start: 01-29-2024 End: 01-29-2024 [facility] Start: 01-27-2024 End: 01-27-2024 [facility] Start: 01-23-2024 End: 01-23-2024 [facility] Start: 01-22-2024 End: 01-22-2024 [facility] Start: 01-20-2024 End: 01-20-2024 [facility] Start: 01-16-2024 End: 01-16-2024 [facility] Start: 01-15-2024 End: 01-15-2024 [facility] Start: 01-14-2024 Telephone encounter M Sachi Fernandes MD Work Phone: Cardiology Comment on above: Medication Question (Patient is asking if after reviewing labs are there any medication changes?) Start: 01-13-2024 End: 01-13-2024 [facility] Start: 01-10-2024 End: 01-11-2024 ambulatory [facility] Facility:[facility] Start: 01-10-2024 End: 01-10-2024 [facility] Facility:[facility] Start: 01-10-2024 End: 01-10-2024 Nursing evaluation of patient and report [facility] Work Phone: Cardiology Comment on above: IRB [id number] Empower A ssessment of the CARILLON Mitral Contour System in Treating Functional Mitral Regurgitation Associated with Heart Failure PI: Hussein (Primary Dx) Start: 01-10-2024 End: 01-10-2024 Patient entered into trial [facility] Work Phone: [facility] Start: 01-10-2024 End: 01-10-2024 Patient encounter procedure M Sachi Fernandes MD Work Phone: Cardiology Comment on above: 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) (Primary Dx); 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); Chronic systolic heart failure (HCC); S/P CABG (coronary artery bypass graft); Chronic 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); Acute on chronic clinical systolic heart failure (HCC); Stage 3b chronic kidney disease (HCC); Ischemic cardiomyopathy; Non-ischemic cardiomyopathy (HCC); Shortness of breath; Unspecified severe protein-calorie malnutrition (HCC) Start: 01-09-2024 End: 01-09-2024 [facility] Start: 01-08-2024 End: 01-08-2024 [facility] Start: 01-06-2024 End: 01-06-2024 [facility] Start: 01-02-2024 End: 01-02-2024 ambulatory [facility] Facility:[facility] Start: 01-02-2024 End: 01-02-2024 [facility] Start: 01-02-2024 End: 01-02-2024 Nursing evaluation of patient and report [facility] Work Phone: Cardiology Comment on above: IRB 18-600 Empower A ssessment of the CARILLON Mitral Contour System in Treating Functional Mitral Regurgitation Associated with Heart Failure PI: Hussein (Primary Dx) Start: 01-02-2024 End: 01-02-2024 Patient entered into trial [facility] Work Phone: [facility] Start: 01-02-2024 Telephone encounter [facility] Work Phone: Cardiology Comment on above: Appointment; Patient Update Start: 01-01-2024 End: 01-01-2024 [facility] Start: 01-01-2024 End: 01-01-2024 Nursing evaluation of patient and report [facility] Work Phone: Cardiology Comment on above: Study name: EMPOWER Trial IRB# [id number] (Primary Dx) Start: 01-01-2024 End: 01-01-2024 Patient entered into trial [facility] Work Phone: [facility] Start: 12-30-2023 End: 12-30-2023 ambulatory [facility] Start: 12-30-2023 End: 12-30-2023 Nursing evaluation of patient and report [facility] Work Phone: Cardiology Comment on above: IRB 18-600 Empower A ssessment of the CARILLON Mitral Contour System in Treating Functional Mitral Regurgitation Associated with Heart Failure PI: Hussein (Primary Dx) Start: 12-30-2023 End: 12-30-2023 Patient entered into trial [facility] Work Phone: [facility] Start: 12-26-2023 End: 01-15-2024 ambulatory Kristina Ceja APRN.[employer] Work Phone: Cardiology Comment on above: TMTT Meeting Start: 12-26-2023 End: 12-26-2023 Patient encounter procedure Efren Brady MD Work Phone: Cardiology Comment on above: Severe mitral regurg itation (Primary Dx); Cardiomyopathy, ischemic; S/P CABG (coronary artery bypass graft); Sore throat; Unspecified severe protein-calorie malnutrition (HCC) Start: 12-25-2023 End: 01-15-2024 [facility] Start: 12-22-2023 Follow-up encounter Rubén Carney ba, MD Work Phone: [facility] Start: 12-22-2023 ICD Remote F/U Rubén Howell Work Phone: [facility] Department Start: 12-19-2023 End: 12-19-2023 ambulatory [facility] Start: 12-19-2023 End: 12-19-2023 Clinical Support [facility] Cardiac Rehab Exercise 1 [facility] Start: 12-17-2023 End: 12-17-2023 ambulatory FRANCISCA THOMPSON [facility] Start: 12-17-2023 Telephone encounter Virgil Pacheco nd, MD Work Phone: Cardiology Comment on above: Cardiac Rehab Start: 12-12-2023 End: 12-12-2023 Patient encounter procedure Carmelina Whaley [facility] MASTER MERCHANDISER.[employer] Work Phone: Cardiology Comment on above: Mitral valve insuffi ciency, unspecified etiology (Primary Dx); HFrEF (heart failure with reduced ejection fraction) (HCC); SOB (shortness of breath); Hx of CABG; Coronary artery disease involving [place] coronary artery of [place] heart without angina pectoris; Essential hypertension Start: 12-12-2023 End: 12-13-2023 ambulatory CARMELINA Whaley [facility] Facility:[facility] Start: 12-02-2023 End: 12-02-2023 ambulatory [facility] Start: 11-26-2023 Telephone encounter Virgil Pacheco nd, MD Work Phone: Cardiology Comment on above: Patient Update Atherosclerosis of n ative coronary artery, unspecified whether angina present, unspecified whether [place] or transplanted heart (Primary Dx) Start: 11-25-2023 Follow-up encounter Rubén Carney ba, MD Work Phone: [facility] Start: 11-25-2023 ICD Remote F/U Rubén Howell Work Phone: [facility] Department Start: 11-22-2023 Evaluation and manag ement of inpatient CHARU MARTIN [facility] Start: 11-21-2023 Evaluation and manag ement of inpatient JUAN PABLO TAVARES [facility] Start: 11-19-2023 End: 11-25-2023 Evaluation and management of inpatient RAMA [facility] Start: 11-18-2023 End: 11-18-2023 ambulatory [address] [facility] Start: 10-29-2023 End: 10-30-2023 ambulatory TIARRA LOPEZ Facility:[facility] Start: 10-29-2023 Encounter for preprocedural cardiovascular examination FRANCISCA THOMPSON [facility] Start: 10-29-2023 End: 10-29-2023 Patient encounter procedure Virgil Carrillo MD Work Phone: Cardiology Comment on above: Chronic combined sys tolic and diastolic congestive heart failure (HCC) (Primary Dx); Coronary artery disease involving [place] coronary artery of [place] heart without angina pectoris; Essential hypertension; Hx of CABG; Mixed hyperlipidemia; Systolic heart failure, unspecified HF chronicity (HCC); 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 kidney disease, unspecified CKD stage, unspecified whether superintendent container terminal insulin use (HCC); PVD (peripheral vascular disease) (HCC); Atherosclerotic heart disease of [place]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); Mitral valve insufficiency, unspecified etiology Start: 10-28-2023 End: 10-29-2023 ambulatory [facility] Start: 10-23-2023 End: 10-23-2023 ambulatory RAJAT ZIMMER [facility] Start: 10-22-2023 End: 10-22-2023 ambulatory FRANCISCA THOMPSON [facility] Start: 10-10-2023 End: 10-10-2023 [facility] Start: 10-01-2023 End: 10-01-2023 ambulatory Yung KIM Facility:[facility] Start: 09-28-2023 Evaluation and manag ement of inpatient RAMA [facility] Start: 09-27-2023 [facility] Start: 09-27-2023 End: 09-29-2023 Evaluation and management of inpatient FRANCISCA THOMPSON [facility] Start: 09-24-2023 End: 09-24-2023 ambulatory FRANCISCA Paulina SHARONHerman Facility:[facility] Start: 08-27-2023 Telephone encounter Virgil Pacheco nd, MD Work Phone: Cardiology Comment on above: Appointment (Left a message with the patient regarding the cancellation of 10/22/2023 with . Informed the patient of the new scheduled appointment on 10/29/2023 with .) Start: 08-22-2023 Refill Virgil Howell Work Phone: Cardiology Comment on above: Refill Request Start: 06-12-2023 End: 06-12-2023 ambulatory ALISON Marisa JORGEKRYSTINAHerman Facility:[facility] Start: 04-26-2023 End: 04-27-2023 ambulatory FRANCISCA THOMPSON Facility:[facility] Start: 04-26-2023 End: 04-26-2023 Patient encounter procedure Andreas Del Cid MD Work Phone: Cardiology Comment on above: Type 2 diabetes rosy itus with diabetic chronic kidney disease, unspecified CKD stage, unspecified whether superintendent container terminal insulin use (HCC) (Primary Dx); PVD (peripheral vascular disease) (HCC); Atherosclerotic heart disease of [place]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) Start: 04-26-2023 End: 04-27-2023 ambulatory FRANCISCA THOMPSON Facility:[facility] Start: 04-02-2023 End: 04-02-2023 ambulatory Yung DENILSON MONABIANCA Facility:[facility] Start: 03-26-2023 End: 03-26-2023 ambulatory FRANCISCA Paulina Herman Facility:[facility] Start: 02-21-2023 Follow-up encounter Rubén Carnye ba, MD Work Phone: [facility] Start: 02-21-2023 ICD Remote F/U Rubén Howell Work Phone: [facility] Start: 02-08-2023 End: 02-09-[address] DOCTOR CARRIZALES Facility: Start: 12-03-2022 Orders Only Andreas Del Cid MD Work Phone: Cardiology Start: 11-29-2022 Patient encounter procedure John Jefferson MD Work Phone: Vascular Surg Dept Start: 11-29-2022 Telephone encounter John carrillo MD Work Phone: Vascular Surg Dept Comment on above: Surgery Cancelled Start: 11-06-2022 Follow-up encounter Rubén Carney ba, MD Work Phone: [facility] Start: 11-06-2022 ICD Remote F/U Rubén Howell Work Phone: [facility] Start: 10-31-2022 Telephone encounter John carrillo MD Work Phone: Vascular Surg Dept Comment on above: Appointment Start: 10-25-2022 End: 10-25-2022 Patient encounter procedure Andreas Del Cid MD Work Phone: Cardiology Comment on above: 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[place] coronary artery of [place] heart without angina pectoris (Primary Dx); Heart failure, acute systolic (HCC) Start: 10-25-2022 End: 10-25-2022 Subsequent hospital visit by physician [facility] Comment on above: Chronic systolic hea rt failure (HCC) [I50.22] Start: 10-02-2022 End: 10-02-2022 Patient encounter procedure Yung Kim MD Work Phone: Radiation Oncology Comment on above: Malignant neoplasm o f prostate (HCC) (Primary Dx) Start: 09-18-2022 End: 12-31-2022 ambulatory MALAIKA FAUST Facility:[facility] Start: 09-12-2022 End: 09-13-[address] MALAIKA KIM Facility:[facility] Start: 09-07-2022 Telephone encounter Andreas poe MD Work Phone: Cardiology Comment on above: Nm Pet Request Start: 09-06-2022 Orders Only Andreas Del Cid MD Work Phone: Cardiology Comment on above: Chronic systolic hea rt failure (HCC) (Primary Dx); Coronary artery disease involving [place] coronary artery of [place] heart without angina pectoris Start: 09-03-2022 End: 09-03-2022 Patient encounter procedure John Jefferson MD Work Phone: Vascular Surg Dept Comment on above: 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[place] coronary artery of [place] heart without angina pectoris (Primary Dx); Heart failure, acute systolic (HCC); Mixed hyperlipidemia; Stenosis of left carotid artery; Cerebrovascular acci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); Chronic 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); Carotid stenosis, asymptomatic, bilateral Start: 08-30-2022 End: 08-31-2022 ambulatory [facility] Facility:[facility] Start: 08-07-2022 Follow-up encounter Rubén Carney ba, MD Work Phone: [facility] Start: 08-07-2022 ICD Remote F/U Rubén Howell Work Phone: [facility] Start: 08-03-2022 Orders Only John Howell Work Phone: Vascular Surg Dept Comment on above: Bilateral carotid ar annalee stenosis (Primary Dx) Start: 08-01-2022 Telephone encounter Francisca Thompson MD Work Phone: [address] [place] [address] Comment on above: Appointment Start: 07-30-2022 Telephone encounter Francisca Thompson MD Work Phone: [facility] Comment on above: Appointment Start: 07-25-2022 Telephone encounter Andreas poe MD Work Phone: Cardiology Comment on above: [facility] Start: 07-23-2022 End: 07-24-2022 ambulatory MALAIKA FAUST Facility:[facility] Start: 07-18-2022 End: 07-19-[address] FRANCISCA THOMPSON . Facility:[facility] Start: 06-27-2022 End: 06-28-[address] FRANCISCA THOMPSON . Facility:[facility] Start: 06-27-2022 End: 06-28-[address] FRANCISCA THOMPSON . Facility:[facility] Start: 06-18-2022 Encounter for preprocedural laboratory examination MALAIKA FAUST [facility] Start: 06-14-2022 End: 06-15-2022 Encounter for preprocedural laboratory examination DR FRANCISCA THOMPSON . Facility:[facility] Start: 06-14-2022 End: 06-15-[address] FRANCISCA THOMPSON . Facility: Start: 06-07-2022 End: 09-18-[address] FRANCISCA THOMPSON . Facility: Start: 06-06-2022 End: 06-06-2022 Orders Only Andreas Del Cid MD Work Phone: Cardiology Comment on above: Chronic systolic hea rt failure (HCC) (Primary Dx) Mitral valve insuffi ciency, unspecified etiology (Primary Dx); Chronic systolic heart failure (HCC) Start: 05-17-2022 End: 05-24-2022 Evaluation and management of inpatient SHARON HOOKS Facility:[facility] Start: 05-16-2022 End: 05-17-2022 ambulatory SHARON HOOKS . Facility: Start: 05-14-2022 End: 05-15-[address] FRANCISCA THOMPSON . Facility: Start: 05-08-2022 Follow-up encounter Rubén Carney ba, MD Work Phone: [facility] Start: 05-08-2022 ICD Remote F/U Rubén Howell Work Phone: [facility] Start: 04-26-2022 End: 04-26-2022 ambulatory Yung Kim MD Work Phone: Radiation Oncology Comment on above: Malignant neoplasm o f prostate (HCC) (Primary Dx) Start: 04-26-2022 End: 04-26-2022 Telemedicine consultation with patient Yung Kim MD Work Phone: [place] Start: 02-06-2022 Follow-up encounter Rubén Carney ba, MD Work Phone: [facility] Start: 02-06-2022 ICD Remote F/U Rubén Howell Work Phone: [facility] Start: 01-15-2022 Orders Only Lilia [...] 12-11-2021 End: 12-11-2021 Patient encounter procedure Yung Denilson Kim MD Work Phone: Radiation Oncology Comment on above: Malignant neoplasm o f prostate (HCC) (Primary Dx) Start: 09-11-2021 Encounter for other preprocedural examination FRANCISCA THOMPSON [facility] Start: 04-30-2012 Patient encounter status ARACELI phillips MD Work Phone: [facility] Work Phone: Start: 04-28-2012 End: 05-01-2012 Preprocedural examination done Research [employer] Work Phone: [facility] Procedures Date Procedure Procedure Detail Performing Clinician Start: 12-25-2023 Follow-up visit Follow-up BEKA HARMON Start: 12-22-2023 ICD REMOTE CHECK Rubén Bucio MD Work Phone: Start: 12-02-2023 Follow-up visit RAMA WILLIAN HMOOD Start: 11-25-2023 ICD REMOTE CHECK Rubén Bucio MD Work Phone: Start: 11-18-2023 Follow-up visit RAMA WILLIAN HMOOD Start: 10-28-2023 Follow-up visit RAMA WILLIAN HMOOD Start: 10-23-2023 Follow-up visit RAMA WILLIAN HMOOD Start: 02-21-2023 ICD REMOTE CHECK Rubén Bucio MD Work Phone: Start: 11-06-2022 ICD REMOTE CHECK Rubén Bucio MD Work Phone: Start: 10-25-2022 Myocrd img pet prfuj net front end developer std rst&strs cncrnt ct Andreas Del Cid MD Work Phone: Start: 10-25-2022 Myocrd img pet prfuj w/metab 2rtracer cncrnt ct Andreas Del Cid MD Work Phone: Start: 10-25-2022 End: 10-25-2022 Gluc bld gluc mntr dev cleared fda spec home use [facility] Provider Start: 09-12-2022 End: 09-12-2022 PSA screening [facility] Provider Comment on above: Performed By: #### B MP, BNP #### [facility] [address] [place] [address] Dr. Silva Burnett Start: 08-07-2022 ICD REMOTE CHECK Rubén Bucio MD Work Phone: Start: 05-08-2022 ICD REMOTE CHECK Rubén Bucio MD Work Phone: Start: 02-06-2022 ICD REMOTE CHECK Rubén Bucio MD Work Phone: Start: 08-17-2021 Adult depression screening assessment [facility] 1 Start: 06-17-2012 History of coronary artery bypass grafting S/P CABG (coronary artery bypass graft) ARACELI Kim MD Work Phone: History of coronary artery bypass grafting Hx of CABG Virgil Carrillo MD Work Phone: History of coronary artery bypass grafting Hx of CABG Carmelina Carrasco APRN.[employer] Work Phone: History of coronary artery bypass grafting S/P CABG (coronary artery bypass graft) Efren Brady MD Work Phone: History of coronary artery bypass grafting S/P CABG (coronary artery bypass graft) Paulina Fernandes MD Work Phone: Plan of Treatment Date Care Activity Detail Author Start: 06-13-2030 DTaP,Tdap and Td Vaccines (2 - Tdap) DTaP,Tdap and Td Vaccines (2 - Tdap) [facility] Start: 06-13-2030 Urine microalbumin profile [facility] Start: 10-25-2025 DIABETES SCREEN DIABETES SCREEN [facility] Start: 06-06-2025 DIABETES SCREEN DIABETES SCREEN [facility] Start: 04-19-2025 DIABETES SCREEN DIABETES SCREEN [facility] Start: 01-15-2025 DIABETES SCREEN DIABETES SCREEN [facility] Start: 11-09-2024 DIABETES SCREEN DIABETES SCREEN [facility] Start: 09-28-2024 Hepatitis B surface antibody level LDL Cholesterol [facility] Start: 05-17-2024 Influenza vaccination [facility] Start: 03-31-2024 End: 03-31-2024 ambulatory 03/31/2024 1:30 PM EDT Results Only [facility] [address] [place] [address] [facility] Start: 03-31-2024 End: 03-31-2024 Patient encounter procedure 03/31/2024 1:15 PM EDT Office Visit Radiation Oncology [address] [place] [address] Yung Kim MD [address] [place] [address] 6 month rv Radiation Oncology Comment on above: 6 month rv Start: 03-30-2024 End: 03-30-2024 Patient encounter procedure 03/30/2024 2:00 PM EDT Office Visit Cardiology [address] [place] [address] Efren Brady MD [address] [place], [place] [id number] [facility] Comment on above: [facility] Start: 03-24-2024 End: 03-24-2024 Patient encounter procedure 03/24/2024 1:00 PM EDT Office Visit [facility] [address] [place] [address] lab [facility] Comment on above: lab Start: 03-11-2024 End: 03-11-2024 Patient encounter procedure 03/11/2024 11:20 AM EDT Office Visit Otolaryngology [address] [place] [address] Charu Ferrell, MASTER MERCHANDISER.[employer] [address] [place] [address] Sore throat [J02.9] Otolaryngology Comment on above: Sore throat [J02.9] Start: 02-12-2024 End: 02-12-2024 Patient encounter procedure 02/12/2024 10:05 AM EDT Office Visit Otolaryngology [address] [place] [address] Charu Ferrell, MASTER MERCHANDISER.[employer] [address] [place] [address] CONSULT TO ENT Otolaryngology Comment on above: CONSULT TO ENT Start: 02-11-2024 End: 02-11-2024 ambulatory 02/11/2024 4:00 PM EDT [facility] Cardiology [address] [id number] Paulina Fernandes MD [address] [place] [address] Atherosclerotic heart disease of [place]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) Cardiology Comment on above: Atherosclerotic heart disease of [place]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) Start: 02-05-2024 End: 02-05-2024 Patient encounter procedure 02/05/2024 3:10 PM EDT Office Visit Vascular Medicine [address] [id number] EMPOWER EDITH TO DO, Vascular Medicine Comment on above: EMPOWER EDITH TO DO, Start: 02-05-2024 End: 02-05-2024 Nursing evaluation of patient and report 02/05/2024 2:00 PM EDT Nurse Visit Cardiology [address] [id number] [place], Research Nurse Card Intervention [address] [place], [place] [id number] [facility] Comment on above: [id number] [facility] Start: 02-05-2024 End: 02-05-2024 [facility] J1-4 Dra jazmin German Comment on above: 18-600 [facility] Start: 01-02-2024 End: 01-02-2024 Clinical Support 01/02/2024 1:30 PM EDT Clinical Support [facility]iac [facility] [address] [place] [address] [facility] Start: 01-01-2024 End: 01-01-2024 Clinical Support 01/01/2024 1:30 PM EDT Clinical Support [facility] [address] [place] [address] [facility] Start: 12-30-2023 End: 12-30-2023 Clinical Support 12/30/2023 1:30 PM EDT Clinical Support [facility] [address] [place] [address] [facility] Start: 12-26-2023 End: 12-26-2023 Clinical Support 12/26/2023 1:30 PM EDT Clinical Support [facility] [address] [place] [address] [facility] Start: 12-25-2023 End: 12-25-2023 Clinical Support 12/25/2023 1:30 PM EDT Clinical Support [facility] [address] [place] [address] [facility] Start: 10-29-2023 End: 01-28-2024 Comprehensive metabolic 2000 panel - Serum or Plasma COMP METABOLIC PANEL Lab Routine Chronic 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) Expected: 10/29/2023, Expires: 01/28/2024 [facility] Work Phone: Comment on above: Expected: 10/29/2023, Expires: 4 Start: 09-16-2023 Advance Directive Discussion Advance Directive Discussion [facility] Start: 09-16-2023 Behavioral Health Screening Behavioral Health Screening [facility] Start: 09-16-2023 Depression Assessment Depression Assessment [facility] Start: 05-17-2023 Covid-19 Vaccine () Covid-19 Vaccine () [facility] Start: 05-17-2023 Influenza vaccination [facility] Start: 04-01-2023 End: 06-01-2023 Prostate specific Ag [Mass/volume] in Serum or Plasma PSA/PROSTSPECAG DIAG Lab Routine Malignant neoplasm of prostate (HCC) Expected: 04/01/2023 (Approximate), Expires: 06/01/2023 [facility] Work Phone: Comment on above: Expected: 04/01/2023 (Approximate), Expi res: 06/01/2023 Start: 01-15-2023 Hepatitis B surface antibody level LDL CHOLESTEROL [facility] Start: 10-27-2022 End: 12-27-2022 Prostate specific Ag [Mass/volume] in Serum or Plasma PSA/PROSTSPECAG DIAG Lab Routine Malignant neoplasm of prostate (HCC) Expected: 10/27/2022, Expires: 12/27/2022 [facility] Work Phone: Comment on above: Expected: 10/27/2022, Expires: Start: 09-16-2022 ADVANCE DIRECTIVE DISCUSSION ADVANCE DIRECTIVE DISCUSSION [facility] Start: 09-16-2022 DEPRESSION ASSESSMENT DEPRESSION ASSESSMENT [facility] Start: 08-18-2022 Adult BMI Screening Adult BMI Screening [facility] Start: 08-17-2022 Depression Screening Depression Screening [facility] Start: 07-18-2022 Hemoglobin A1c measurement HbA1C [facility] Start: 07-18-2022 Hemoglobin A1c/Hemoglobin.total in Blood HBA1C [facility] Start: 06-06-2022 End: 08-06-2022 Comprehensive metabolic 2000 panel - Serum or Plasma [facility] Work Phone: Comment on above: Expected: 06/06/2022, Expires: 2 Start: 06-06-2022 End: 08-06-2022 Natriuretic peptide.B prohormone N-Terminal [Mass/volume] in Serum or Plasma [facility] Work Phone: Comment on above: Expected: 06/06/2022, Expires: 2 Start: 05-17-2022 Influenza vaccination [facility] Start: 01-15-2022 End: 03-17-2022 Hemoglobin A1c/Hemoglobin.total in Blood [facility] Work Phone: Comment on above: Expected: 01/15/2022, Expires: 2 Start: 01-15-2022 End: 03-17-2022 Insulin [Units/volume] in Serum or Plasma [facility] Work Phone: Comment on above: Expected: 01/15/2022, Expires: 2 Start: 01-15-2022 End: 03-17-2022 IRON + TIBC [facility] Work Phone: Comment on above: Expected: 01/15/2022, Expires: 2 Start: 01-15-2022 End: 03-17-[address] [facility] Work Phone: Comment on above: Expected: 01/15/2022, Expires: 2 Start: 01-15-2022 End: 03-17-[address] [facility] Work Phone: Comment on above: Expected: 01/15/2022, Expires: 2 Start: 01-15-2022 End: 03-17-2022 T4 FREE/FREE THYROX [facility] Work Phone: Comment on above: Expected: 01/15/2022, Expires: 2 Start: 01-15-2022 End: 03-17-2022 T4/FTI/T4U [facility] Work Phone: Comment on above: Expected: 01/15/2022, Expires: 2 Start: 01-15-2022 End: 03-17-2022 Thyrotropin [Units/volume] in Serum or Plasma [facility] Work Phone: Comment on above: Expected: 01/15/2022, Expires: 2 Start: 01-07-2022 End: 03-09-2022 Prostate specific Ag [Mass/volume] in Serum or Plasma PSA/PROSTSPECAG DIAG Lab Routine Malignant neoplasm of prostate (HCC) Expected: 01/07/2022, Expires: 03/09/2022 [facility] Work Phone: Comment on above: Expected: 01/07/2022, Expires: 2 Start: 09-16-2021 ADVANCE DIRECTIVE DISCUSSION ADVANCE DIRECTIVE DISCUSSION [facility] Start: 09-16-2021 DEPRESSION ASSESSMENT DEPRESSION ASSESSMENT [facility] Start: 06-19-2020 Hepatitis B surface antibody level LDL CHOLESTEROL [facility] Start: 2007 Fall Risk Screening Fall Risk Screening [facility] Start: 2007 PNEUMOVAX AGE 65 AND OVER WITH 5YR LOOKBACK (#1) PNEUMOVAX AGE 65 AND OVER WITH 5YR LOOKBACK (#1) [facility] Start: 2002 RSV Vaccine (1 - 1-dose 60+ series) RSV Vaccine (1 - 1-dose 60+ series) [facility] Start: 02-20-1992 SHINGRIX VACCINE (1 of 2) SHINGRIX VACCINE (1 of 2) [facility] Start: 1961 Administration of varicella zoster vaccine Zoster (Shingles) Vaccine (1 of 2) [facility] Start: 1961 SHINGRIX VACCINE (1 of 2) SHINGRIX VACCINE (1 of 2) [facility] Start: 02-20-1960 ANNUAL PCP TEAM CHRONIC DISEASE VISIT ANNUAL PCP TEAM CHRONIC DISEASE VISIT [facility] Start: 1954 Adult depression screening assessment DEPRESSION SCREENING [facility] Start: 1954 Tobacco Screening Tobacco Screening [facility] Start: 02-20-1952 3 comp foot exam completed DIABETIC FOOT EXAM [facility] Start: 02-20-1952 Diabetic foot examination Diabetic Foot Exam [facility] Start: 02-20-1952 Glaucoma screening Dilated Retinal Exam [facility] Start: 02-20-1952 Hepatitis B screening URINE ALBUMIN:CREATININE RATIO [facility] Start: 02-20-1952 Hepatitis C antibody, confirmatory test DILATED RETINAL EXAM [facility] Start: 02-20-1948 Pneumococcal Vaccine: 65+ (1 - PCV) Pneumococcal Vaccine: 65+ (1 - PCV) [facility] Start: 02-20-1948 Pneumococcal Vaccine: 65+ (1 of 2 - PCV) Pneumococcal Vaccine: 65+ (1 of 2 - PCV) [facility] Start: 02-20-1948 PNEUMOCOCCAL: 65+ (1 - PCV) PNEUMOCOCCAL: 65+ (1 - PCV) [facility] Start: 1947 COVID-19 VACCINE (#1) COVID-19 VACCINE (#1) [facility] Start: 1947 COVID-19 VACCINE (1) COVID-19 VACCINE (1) [facility] Start: 1942 COVID-19 VACCINE (#1) COVID-19 VACCINE (#1) [facility] Start: 1942 Medicare Annual Wellness Visit Medicare Annual Wellness Visit [facility] CARDIOPULMONARY REHABILITATION CARDIOPULMONARY REHABILITATION Cardiac Services Ordered: 12/19/2023 [facility] Comment on above: Ordered: 12/19/2023 End: 06-06-2023 ECG COMPLETE ECG COMPLETE ECG Routine Chronic systolic heart failure (HCC) 1 Occurrences starting 06/06/2022 until 06/06/2023 [facility] Work Phone: Comment on above: 1 Occurrences starting 06/06/2022 until 06/06/2023 End: 10-30-2024 ECG COMPLETE ECG COMPLETE ECG Routine Chronic 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) 1 Occurrences starting 10/30/2023 until 10/30/2024 [facility] Work Phone: Comment on above: 1 Occurrences starting 10/30/2023 until 10/30/2024 End: 11-25-2024 ECG COMPLETE ECG COMPLETE ECG Routine Atherosclerosis of [place] coronary artery, unspecified whether angina present, unspecified whether [place] or transplanted heart 1 Occurrences starting 11/26/2023 until 11/25/2024 [facility] Work Phone: Comment on above: 1 Occurrences starting 11/26/2023 until 11/25/2024 End: 12-22-2024 ECG COMPLETE ECG COMPLETE ECG Routine HFrEF (heart failure with reduced ejection fraction) (HCC) Mitral valve insufficiency, unspecified etiology 1 Occurrences starting 12/23/2023 until 12/22/2024 [facility] Work Phone: Comment on above: 1 Occurrences starting 12/23/2023 until 12/22/2024 ECG COMPLETE ECG COMPLETE ECG Routine Severe mitral regurgitation Cardiomyopathy, ischemic S/P CABG (coronary artery bypass graft) 1 Occurrences starting 12/26/2023 [facility] Work Phone: Comment on above: 1 Occurrences starting 12/26/2023 End: 06-06-2023 Echocardiography ECHO Cardiology Routine Chronic systolic heart failure (HCC) 1 Occurrences starting 06/06/2022 until 06/06/2023 [facility] Work Phone: Comment on above: 1 Occurrences starting 06/06/2022 until 06/06/2023 End: 10-30-2024 Echocardiography ECHO Cardiology Routine Chronic 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) 1 Occurrences starting 10/30/2023 until 10/30/2024 [facility] Work Phone: Comment on above: 1 Occurrences starting 10/30/2023 until 10/30/2024 End: 11-25-2024 Echocardiography ECHO Cardiology Routine Atherosclerosis of [place] coronary artery, unspecified whether angina present, unspecified whether [place] or transplanted heart 1 Occurrences starting 11/26/2023 until 11/25/2024 [facility] Work Phone: Comment on above: 1 Occurrences starting 11/26/2023 until 11/25/2024 End: 12-22-2024 Echocardiography ECHO Cardiology Routine HFrEF (heart failure with reduced ejection fraction) (HCC) Mitral valve insufficiency, unspecified etiology 1 Occurrences starting 12/23/2023 until 12/22/2024 [facility] Work Phone: Comment on above: 1 Occurrences starting 12/23/2023 until 12/22/2024 End: 12-25-2024 Echocardiography ECHO Cardiology Routine Severe mitral regurgitation Cardiomyopathy, ischemic S/P CABG (coronary artery bypass graft) 1 Occurrences starting 12/26/2023 until 12/25/2024 [facility] Work Phone: Comment on above: 1 Occurrences starting 12/26/2023 until 12/25/2024 End: 10-06-2023 NM PET/CT CARDIAC PERF REST/STRESS NM PET/CT CARDIAC PERF REST/STRESS Radiology Routine Chronic systolic heart failure (HCC) Coronary artery disease involving [place] coronary artery of [place] heart without angina pectoris 1 Occurrences starting 09/06/2022 until 10/06/2023 [facility] Work Phone: Comment on above: 1 Occurrences starting 09/06/2022 until 10/06/2023 End: 10-06-2023 NM PET/CT CARDIAC VIABILITY NM PET/CT CARDIAC VIABILITY Radiology Routine Chronic systolic heart failure (HCC) Coronary artery disease involving [place] coronary artery of [place] heart without angina pectoris 1 Occurrences starting 09/06/2022 until 10/06/2023 [facility] Work Phone: Comment on above: 1 Occurrences starting 09/06/2022 until 10/06/2023 End: 08-03-2023 US CAROTID ARTERIES [facility] US CAROTID ARTERIES [facility] Vascular Lab Routine Bilateral carotid artery stenosis 1 Occurrences starting 08/03/2022 until 08/03/2023 [facility] Work Phone: Comment on above: 1 Occurrences starting 08/03/2022 until 08/03/2023 [facility] Immunizations Immunization Date Immunization Notes Care Provider [facility] 06-13-2020 diphtheria, tetanus toxoids and pertussis vaccine ARACELI Kim MD Work Phone: [facility] Payers Date Payer Category Payer Unknown MMO MMO MEDICARE SUPPLEMENT [id number] 2018-Present [phone] [address] [place] [address] Indemnity [id number] 2018 Unknown [id number] 1.13.159.2.7.3. [id number] 2007 Medicare MEDICARE MEDICAR E A AND B [id number] 2007-Present [phone] [address] [address] [place] [address] Medicare [id number]. [id number] 2007 Medicare [id number]. 1.13.159.2.7.3. [id number] 1959 Medicare [id number] 1959 Self-pay [id number] 1959 Unknown [id number] 1942 Unknown [id number] 2.16.840.1.907008.3.579.2.647 1942 Unknown [id number] 2.16.840.1.956786.3.579.2.593 1942 Unknown [id number] 2.16.840.1.340453.3.579.2.593 1942 Unknown [id number] 2.16.840.1.430029.3.579.2.593 1942 Unknown [id number] 2.16.840.1.343367.3.579.2.593 1942 Unknown [id number] 2.16.840.1.182071.3.579.2.593 1942 Unknown [id number] 2.16.840.1.812830.3.579.2.593 1942 Unknown [id number] 2.16.840.1.847060.3.579.2.593 1942 Unknown [id number] 2.16.840.1.841309.3.579.2.593 1942 Unknown [id number] 2.16.840.1.345183.3.579.2.593 1942 Unknown [id number] 2.16.840.1.906064.3.579.2.593 1942 Unknown [id number] 2.16.840.1.513031.3.579.2.593 1942 Unknown [id number] 2.16.840.1.378276.3.579.2.593 1942 Unknown [id number] 2.16.840.1.552877.3.579.2.593 1942 Unknown [id number] 2.16.840.1.595594.3.579.2.593 1942 Unknown [id number] 2.16.840.1.396169.3.579.2.593 1942 Unknown [id number] 2.16.840.1.242050.3.579.2.593 1942 Unknown [id number] 2.16.840.1.575593.3.579.2.1286 1942 Unknown [id number] 2.16.840.1.573124.3.579.2.1286 1942 Unknown [id number] 2.16.840.1.679962.3.579.2.1286 1942 Unknown [id number] 2.16.840.1.697911.3.579.2.1286 1942 Unknown [id number] 2.16.840.1.299245.3.579.2.1285 1942 Unknown [id number] 2.16.840.1.603123.3.579.2.1285 1942 Unknown [id number] 2.16.840.1.228221.3.579.2.1285 1942 Unknown [id number] 2.16.840.1.429279.3.579.2.1285 1942 Unknown [id number] 2.16.840.1.636274.3.579.2.1285 1942 Unknown [id number] 2.16.840.1.261093.3.579.2.1285 1942 Unknown [id number] 2.16840.1.183144.3.579.2.1285 1942 Unknown [id number] 2.840.1.408713.3.579.2.1285 1942 Unknown [id number] 2.840.1.206618.3.579.2.1285 1942 Unknown [id number] 2.840.1.671415.3.579.2.1285 1942 Unknown [id number] 2.16.840.1.736403.3.579.2.1285 1942 Unknown [id number] 2.16.840.1.266704.3.579.2.1285 1942 Unknown [id number] 2.16.840.1.173259.3.579.2.1285 1942 Unknown [id number] 2.16.840.1.973533.3.579.2.1285 1942 Unknown [id number] 2.16.840.1.290981.3.579.2.1285 1942 Unknown [id number] 2.16.840.1.499278.3.579.2.1286 1942 Unknown [id number] 2.16.840.1.020929.3.579.2.1286 Social History Date Type Detail Facility Start: 04-28-2012 End: 04-26-2023 Tobacco smoking status NHIS Ex-smoker [facility] Work Phone: End: 04-28-1982 History of tobacco use Current smoker [facility] Work Phone: End: 04-28-1982 History of tobacco use Cigarette Smoker [facility] Work Phone: End: 04-28-1982 History of tobacco use Pipe Smoker [facility] Work Phone: Start: 04-28-2012 End: 02-05-2024 Cigarettes smoked current (pack per day) - Reported 1 [facility] Start: 04-28-2012 End: 04-26-2023 Tobacco use and exposure Smokeless tobacco non-user [facility] Work Phone: Start: 12-04-2021 End: 01-10-2024 Alcohol intake Current drinker of alcohol (finding) [facility] Start: 04-15-2020 History SDOH Alcohol Frequency 2 [facility] Start: 04-15-2020 History SDOH Alcohol Std Drinks 1 [facility] Start: 03-13-2019 History SDOH Alcohol Comment occassional [facility] Start: 1940 Sex Assigned At Male [facility] Start: 12-01-2021 End: 06-06-2022 Exposure to SARS-CoV-2 (event) Not sure [facility] Start: 10-25-2022 Alcohol Comment [facility] Start: 04-15-2020 End: 02-05-2024 Alcohol Use Disorder Identification Test - Consumption [AUDIT-C] [facility] How often to you hav e a drink containing alcohol? Monthly or less [facility] How many standard dr inks containing alcohol do you have on a typical day? 1 or 2 [facility] Frequency of Binge Drinking Not on file [facility] Start: 02-22-2019 Gender identity Identifies as male gender (finding) [facility] Start: 02-22-2019 Sexual orientation Heterosexual (fin bronwyn) [facility] Do you belong to any clubs or organizations such as confucianist groups, unions, fraternal or athletic groups, or school groups? No [facility] Are you now , , , , never or living with a partner? [facility] How often do you hav e 6 or more drinks on 1 occasion? Never [facility] Do you feel stress - tense, restless, nervous, or anxious, or unable to sleep at night because your mind is troubled all the time - these days [OSQ] Not at all [facility] Start: 08-17-2021 Alcohol Comment 1 beer/month [facility] Start: 1940 Sex Assigned At Not on file P [employer] NEGATED: Highlighted rowStart: NINF History of tobacco use Passive smoker [facility] Medical Equipment Procedure Code Equipment Code Equipment Origin al Text Equipment Identifier Dates Climax Cv 6x1in Thk1.65mm Ptfe - [id number] Start: 05-01-2012 Comment on above: Description: used fo r plrdgetts. Patch Cv 8x.8cm Tapr Vsgrd Bov - [id number] Start: 07-01-2012 Comment on above: Description: Right C arotid [id number] [facility] Start: 03-24-2019 Goals Date Patient Goal Desired Activity /State Personal health goal Comment on above: Formatting of this n ote might be different from the original. Evaluation of progress towards goal: To return home safely with spouse and attend outpatient therapy. Personal health goal Clinical Notes 05-01-2012 to 02-11-2024 Telephone Encounter - Darwin Richey F - 02/11/2024 12:18 PM EDTTelephone Encounter - Darwin Richey F - 02/11/2024 12:18 PM Berta Haynes - 02/05/2024 2:26 PM EDT Note Date & Type Note Facility 02-11-2024 Telephone encount er Note Study name: [facility] Trial IRB# [id number] PI: Andrés Savage Pt's gfr dropped--spoke to Dr. Fernandes. Plan for med changes with f/u labs this Saturday. Spoke with pt's daughter. Plan to pause trial enrollment as he doesn't fit with this gfr. Will reassess after labs. Also informed that clinical team is re-reviewing imaging for clips. Plastics Fitter: Darwin Richey Pager #: [phone] [facility] 02-11-2024 Miscellaneous Notes Formattin g of this note might be different from the original. Study name: [facility] Trial IRB# [id number] PI: Andrés Savage Pt's gfr dropped--spoke to Dr. Fernandes. Plan for med changes with f/u labs this Saturday. Spoke with pt's daughter. Plan to pause trial enrollment as he doesn't fit with this gfr. Will reassess after labs. Also informed that clinical team is re-reviewing imaging for clips. Plastics Fitter: Darwin Richey Pager #: [phone] documented in this encounter [facility] 02-05-2024 Note HNO ID: [id number] Author: ?, ?, ? Service: ? Author Type: ? Type: Progress Notes Filed: 02/05/2024 15:49 Note Text: Study name: EMPOWER Trial IRB# [id number] PI: Andrés Savage Study Visit: Screening (Not More than 60 Days Prior to Randomization) I met with the patient for the Screening visit for the EMPOWER Trial. Reaffirmed that the patient still wishes to participate in the study and continues to consent to the study. Has the patient had any changes in his health since the last study visit? No Medications and allergy lists updated and current. Yes Has the patient had any outside hospitalizations/ER visits since informed consent: No The following assessments were performed per protocol by a blinded multi township assessor: Berta Barry NYHA completed: Yes KCCQ-12 questionnaire completed: Yes SF- 12 questionnaire completed: Yes 6 minute walk test completed: Yes Discussed with the patient the importance of follow up in the study. He verbalized understanding. Next study visit will be no more than 3 days prior to randomization and patient will be notified. Patient contact information reaffirmed and updated. Coordinator contact information provided to the patient. Education provided:Protocol required tests/procedures and Follow up requirements/schedule Materials dispensed: Coordinator Contact Card Plastics Fitter: Berta Barry [phone] [facility] 02-05-2024 History of Presen t illness Narrative Study name: EMPOWER Trial IRB# [id number] PI: Andrés Savage Study Visit: Screening (Not More than 60 Days Prior to Randomization) I met with the patient for the Screening visit for the EMPOWER Trial. Reaffirmed that the patient still wishes to participate in the study and continues to consent to the study. Has the patient had any changes in his health since the last study visit? No Medications and allergy lists updated and current. Yes Has the patient had any outside hospitalizations/ER visits since informed consent: No The following assessments were performed per protocol by a blinded multi township assessor: Berta Barry NYHA completed: Yes KCCQ-12 questionnaire completed: Yes SF- 12 questionnaire completed: Yes 6 minute walk test completed: Yes Discussed with the patient the importance of follow up in the study. He verbalized understanding. Next study visit will be no more than 3 days prior to randomization and patient will be notified. Patient contact information reaffirmed and updated. Coordinator contact information provided to the patient. Education provided:Protocol required tests/procedures and Follow up requirements/schedule Materials dispensed: Coordinator Contact Card Plastics Fitter: Berta Barry [phone] documented in this encounter [facility] 01-30-2024 Note HNO ID: [id number] Author: ?, ?, ? Service: ? Author Type: ? Type: Progress Notes Filed: 01/31/2024 10:56 Note Text: Summary: [facility] Study Called pt's daughter Charu to give update on Empower study, and to schedule screening visit. [facility] 01-30-2024 History of Presen t illness Narrative Summary: 18-600 Empower Study Called pt's daughter Charu to give update on Empower study, and to schedule screening visit. documented in this encounter [facility] 01-14-2024 Telephone encount er Note January 14, 2024 Name: José Miguel Roth . Patient Contact Number: [phone] - daughter's cell - Charu Ant Date of last office visit: 01/10/2024 Reason For Call: Medication Issue/Question: Patient's daughter is asking if after reviewing labs are there any medication changes? Please call daughter's phone - Charu Cain Physician: Paulina Fernandes MD Patient was informed that non-urgent calls may be returned within the next three business days. Yes Diya Martinez [facility] 01-14-2024 Miscellaneous Notes Formattin g of this note might be different from the original. January 14, 2024 Name: José Miguel Roth . Patient Contact Number: [phone] - daughter's cell - Charu Cain Date of last office visit: 01/10/2024 Reason For Call: Medication Issue/Question: Patient's daughter is asking if after reviewing labs are there any medication changes? Please call daughter's phone - Charu Cain Physician: Paulina Fernandes MD Patient was informed that non-urgent calls may be returned within the next three business days. Yes Diya Martinez documented in this encounter [facility] 01-10-2024 Evaluation note Diagnosis IRB 18600 Empower Assessment of the CARILLON Mitral Contour System in Treating Functional Mitral Regurgitation Associated with Heart Failure PI: Hussein- Primary documented in this encounter [facility]04-26-2024 NoteHNO ID: [id number] Author: ?, ?, ? Service: ? Author Type: ? Type: Progress Notes Filed: 01/10/2024 12:52 Note Text: IRB 18600 Empower Assessment of the CARILLON Mitral Contour System in Treating Functional Mitral Regurgitation Associated with Heart Failure PI: Hussein Study explained/reviewed with patient and 3 daughters. Study related follow-up requirements were discussed. Risks, benefits, alternatives, personnel, and costs of the study explained/reviewed. Patient provided informed consent for review previously via fedex. Study related questions were addressed. Pt agreeable to sign consent now, with the plan that he is getting bloodwork today and the HF MD will decide if his GDMT is optimized. See consent note. Pt and family requested study card so that should he get admitted locally, they can show the team what trial he is involved in and ideally trigger a transfer to [facility]. Study card without ID or implanting date/MD given. [facility] and Dr. Brady info on card. Darwin Richey RN [id number] History of Present illness Narrative* Darwin Richey F - 01/10/2024 12:32 PM EDT IRB 18-600 Empower Assessment of the CARILLON Mitral Contour System in Treating Functional Mitral Regurgitation Associated with Heart Failure PI: Hussein Study explained/reviewed with patient and 3 daughters. Study related follow-up requirements were discussed. Risks, benefits, alternatives, personnel, and costs of the study explained/reviewed. Patient provided informed consent for review previously via fedex. Study related questions were addressed. Pt agreeable to sign consent now, with the plan that he is getting bloodwork today and the HF MD will decide if his GDMT is optimized. See consent note. Pt and family requested study card so that should he get admitted locally, they can show the team what trial he is involved in and ideally trigger a transfer to [facility]. Study card without ID or implanting date/MD given. [facility] and Dr. Brady info on card. Darwin Richey RN [phone] [facility] NoteHNO ID: [id number] Author: Paulina FERNANDES MD Service: ? Author Type: Physician Type: Progress Notes Filed: 01/12/2024 13:01 Note Text: Heart and Vascular [facility] SECTION OF HEART FAILURE and CARDIAC TRANSPLANT MEDICINE OUTPATIENT VISIT DATE January 10, 2024 OUTPATIENT VISIT TYPE Consultation PRIMARY CARE PHYSICIAN: Francisca Thompsno [address] [place] [address] CHIEF COMPLAINT: HFrEF, ischemic CM, severe FMR NURSING INTAKE (Patient?s concerns and/or recent hospitalizations/ER visits): José Miguel Roth is a 83 year old male from [place], [place] referred by Dr. Brady for GDMT. PMHx includes Severe FMR ICM s/p DC-ICD (in 2018) CABG (in 2011, with cath in 2021 with patent OTTO-LAD and SVG to OM, with occluded VG to PDA) Prior stroke in 2020 s/p tPA (no deficits) on Eliquis COPD (remote smoker) CKD (crea ~ 1.5-2.0) Right CEA (2012) HF Nursing Assessment: Interim Hospitalizations and/or ER visits: 11/18-11/25/2023 chronic systolic HF 09/27-09/29/2023 NSTEMI Chest Pain: no Skipping or irregular heartbeats: no Shortness of breath at rest: no Shortness of breath with activity: no Cough: no Waking up in the middle of the night gasping for air: no Lightheadedness or dizziness: occasional with position change Feeling like you are going to pass out: no Actually passing out: no Poor energy level: yes Unintentional weight gain: no Unintentional weight loss: no Swelling in your legs,feet, abdomen: no Filling up quickly when you eat: no HISTORY OF PRESENT ILLNESS: Has lower energy. Can walk a good distance on flat ground. He lives in a ranch home. Currently doing cardiac rehab. Had a MERRITT and subsequently had terrible throat pain. Can do 3 METS at [facility]. Hospitalized in November 2023 with volume overload and ADHF had the RHC below. Relevant Studies: Last RHC in November 2023 Hemodynamic Data: RA: 7 RV: 72/4, 10 PA: 67/21 (43) PCWP: 26 large V waves up to 41 noted on the pulmonary capillary wedge pressure tracing. 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) 09/03/2022 Dyslipidemia GERD (gastroesophageal reflux disease) Heart failure, acute systolic ([facility]) Hypertension Hypothyroid Myocardial infarct, old Occlusion and stenosis of carotid artery without mention of cerebral infarction Prostate cancer ([facility]) 2020 PVD (peripheral vascular disease) ([facility]) 11/17/2012 Stroke (cerebrum) ([facility]) 09/03/2022 Systolic heart failure ([facility]) Thyroid disorder 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 kidney disease, unspecified CKD stage, unspecified whether care home insulin use ([facility]) 04/26/2023 Ventricular tachycardia ([facility]) 04/28/2012 PAST SURGICAL HISTORY [...] Cigarettes, Pipe Quit date: 04/28/1982 Years since quittin.7 Passive exposure: Never Smokeless tobacco: Never Vaping Use Vaping Use: Never used Substance Use Topics Alcohol use: Yes Comment: rarely Drug use: Never FAMILY HISTORY Problem Relation Age of Onset other (atrial fibrillation) Mother other (CHF) Mother other (Other) Mother at age 96 Coronary Artery Disease Father Heart Attack Father fatal CT at age 77 Ischemic Heart Disease Brother CABGx6 first at age 72 No Known Problems Maternal Grandmother No Known Problems Maternal Grandfather No Known Problems Paternal Grandmother No Known Problems Paternal Grandfather No Known Problems Daughter No Known Problems Daughter No Known Problems Daughter other (Other) Other paternal cousin at age [address] ALLERGIES: ALLERGIES Allergen Reactions Latex Rash Adhesive Tape (Keyanna* Rash CURRENT MEDICATIONS: MAGNESIUM GLUCONATE ORAL Take 160 mg by mouth once daily. spironolactone (ALDACTONE) 25 mg tablet Take 12.5 mg by mouth every morning. dapagliflozin propanediol (FARXIGA) 10 mg tablet Take 10 mg by mouth daily with breakfast. furosemide (LASIX) 40 mg tablet Take 40 mg by mouth two times a day. 40mg daily additional 40mg every other day in evening Cholecalciferol, Vitamin D3, 25 mcg (1,000 unit) cap Take 1,000 Units by mouth as ne (more content not included)...[facility]04-26-2024 Instructions* Patient Instructions* Paulina Fernandes MD - 01/10/2024 11:19 AM EDT -blood work today -screening for EMPOWER study -Will likely start low dose ACEi or ARB after I review your labs [facility] History of Present illness Narrative* Paulina Fernandes MD - 01/10/2024 10:15 AM EDT Images from the original note were not included. Heart and Vascular [facility] SECTION OF HEART FAILURE and CARDIAC TRANSPLANT MEDICINE OUTPATIENT VISIT DATE January 10, 2024 OUTPATIENT VISIT TYPE Consultation PRIMARY CARE PHYSICIAN: Francisca Thompson [address] [place] [address] CHIEF COMPLAINT: HFrEF, ischemic CM, severe FMR NURSING INTAKE (Patient s concerns and/or recent hospitalizations/ER visits): José Miguel Roth is a 83 year old male from [place], [place] referred by Dr. Brady for GDMT. PMHx includes Severe FMR ICM s/p DC-ICD (in 2019) CABG (in 2011, with cath in 2021 with patent OTTO-LAD and SVG to OM, with occluded VG to PDA) Prior stroke in 2020 s/p tPA (no deficits) on Eliquis COPD (remote smoker) CKD (crea ~ 1.5-2.0) Right CEA (2012) HF Nursing Assessment: Interim Hospitalizations and/or ER visits: 11/18-11/25/2023 chronic systolic HF 09/27-09/29/2023 NSTEMI Chest Pain: no Skipping or irregular heartbeats: no Shortness of breath at rest: no Shortness of breath with activity: no Cough: no Waking up in the middle of the night gasping for air: no Lightheadedness or dizziness: occasional with position change Feeling like you are going to pass out: no Actually passing out: no Poor energy level: yes Unintentional weight gain: no Unintentional weight loss: no Swelling in your legs,feet, abdomen: no Filling up quickly when you eat: no HISTORY OF PRESENT ILLNESS: Has lower energy. Can walk a good distance on flat ground. He lives in a ranch home. Currently doing cardiac rehab. Had a MERRITT and subsequently had terrible throat pain. Can do 3 METS at [facility]. Hospitalized in November 2023 with volume overload and ADHF had the RHC below. Relevant Studies: Last RHC in November 2023 Hemodynamic Data: RA: 7 RV: 72/4, 10 PA: 67/21 (43) PCWP: 26 large V waves up to 41 noted on the pulmonary capillary wedge pressure tracing. 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) 09/03/2022 Dyslipidemia GERD (gastroesophageal reflux disease) Heart failure, acute systolic (HCC) Hypertension Hypothyroid Myocardial infarct, old Occlusion and stenosis of carotid artery without mention of cerebral infarction Prostate cancer ([facility]) 2020 PVD (peripheral vascular disease) ([facility]) 11/17/2012 Stroke (cerebrum) ([facility]) 09/03/2022 Systolic heart failure (HCC) Thyroid disorder 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 kidney disease, unspecified CKD stage, unspecified whether care home insulin use ([facility]) 04/26/2023 Ventricular tachycardia ([facility]) 04/28/2012 PAST SURGICAL HISTORY [...] Cigarettes, Pipe Quit date: 04/28/1982 Years since quittin.7 Passive exposure: Never Smokeless tobacco: Never Vaping Use Vaping Use: Never used Substance Use Topics Alcohol use: Yes Comment: rarely Drug use: Never FAMILY HISTORY Problem Relation Age of Onset other (atrial fibrillation) Mother other (CHF) Mother other (Other) Mother at age 96 Coronary Artery Disease Father Heart Attack Father fatal CT at age 77 Ischemic Heart Disease Brother CABGx6 first at age 72 No Known Problems Maternal Grandmother No Known Problems Maternal Grandfather No Known Problems Paternal Grandmother No Known Problems Paternal Grandfather No Known Problems Daughter No Known Problems Daughter No Known Problems Daughter other (Other) Other paternal cousin at age [address] ALLERGIES: ALLERGIES Allergen Reactions Latex Rash Adhesive Tape (Keyanna* Rash CURRENT MEDICATIONS: MAGNESIUM GLUCONATE ORAL Take 160 mg by mouth once daily. spironolactone (ALDACTONE) 25 mg tablet Take 12.5 mg by mouth every morning. dapagliflozin propanediol (FARXIGA) 10 mg tablet Take 10 mg by mouth daily with breakfast. furosemide (LASIX) 40 mg tablet Take 40 mg by mouth two times a day. 40mg daily additional 40mg every other day in evening Cholecalciferol, Vitamin D3, 25 mcg (1,000 unit) cap Take 1,000 Units by mouth as needed. nitroglycerin sublingual (NITROQUICK) 0.4 mg SL tablet as directed. SPECIAL SERVICE REPRESENTATIVE 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 aspirin, enteric coated (ASPIRIN, ENTERIC COATED) 81 mg EC tablet Take 1 tablet by mouth once daily. ezetimibe (ZETIA) 10 mg tablet Take 10 mg by mouth once daily. metoprolol succinate ER (TOPROL XL) 25 mg 24 hr tablet Take 1 tablet by mouth once daily. ubidecarenone Q-10 (COENZYME Q-10) 10 mg cap Take 10 mg by mouth once daily. thyroid, pork, 60 mg tablet Take 75 mg by mouth once daily. atorvastatin (LIPITOR) 40 mg tablet Take 40 mg by mouth daily at bedtime. REVIEW OF SYSTEMS: CONSTITUTION: Negative for: Fever, Night sweats and Recent weight change HEENT: Negative for: Hearing loss RESPIRATORY: Negative for: Cough and Difficulty breathing GASTROINTESTINAL: Negative for: Melena, Nausea, Diarrhea, Abdominal distention and Early satiety MUSCULOSKELETAL: Positive for: Myalgias Negative for: Arthralgias NEUROLOGICAL: Positive for: Dizziness Negative for: Headaches SKIN: Negative for: Rash EYES: Negative for: Visual disturbance CARDIOVASCULAR: Negative for: Chest pain, Leg swelling, Arrhythmia and Pre-syncope GENITOURINARY: Negative for: Difficulty urinating PATIENT ENTERED DATA: No data to display No data to display 10/02/2022 PROMIS Global Health - (T-Scores - the mean of general population = 50. Five points is a clinicallymeaningful difference.) Physical T-Score 47.7 Mental T-Score 36.3 PHYSICAL EXAMINATION: BP 122/78 (BP Site: Left Arm, BP Cuff Size: Regular Adult) Pulse 88 Resp 14 Ht 182.9 cm (6') Wt 75.3 kg (166 lb) SpO2 97% BMI 22.51 kg/m General: Well appearing, in no acute distress. Skin: No clubbing, no cyanosis. Eyes: Extra ocular movements intact Oropharynx: Teeth in good repair. Neck: No jugular venous distention, no carotid bruits, carotids have a normal upstroke, no palpablethyromegaly. Lungs: Clear to auscultation bilaterally, no wheezing or rhonchi. Heart: Regular rhythm, PMI not displaced, Abdomen: Soft, nontender, bowel sounds normal, no palpable organomegaly, no bruits. Extremities: No peripheral edema . Neuro: Oriented to person, place and time, alert, cooperative, gait coordinated. CARDIOVASCULAR MEDICINE TESTING: I have personally reviewed the Electrocardiogram, Laboratory Testing, and Echocardiogram. Last ECHO Result Conclusion ECHO Collected: 12/12/2023 11:11 AM (Final result) Impression: CONCLUSIONS: - Exam indication: Evaluation of known heart failure to guide therapy - The left ventricle is severely dilated. Left ventricular systolic function is severely decreased. EF = 15 5% (2D 4-ch.) Definity contrast used for endocardial border detection. Left ventricular diastolic function was not evaluated due to >2+ MR. - The right ventricle is normal in size. Right ventricular systolic function is low normal. - The left atrial cavity is dilated. - The visualized aorta is borderline dilated with a maximal dimension of 4.0 cm. - There is moderate (2+ - 3+) holosystolic mitral valve regurgitation due to apical tethering of normal mitral leaflet caused by LV enlargement. Regurgitant orifice area (PISA) is 0.26 cm . - Estimated right ventricular systolic pressure is 42 mmHg consistent with mild pulmonary hypertension. Estimated right atrial pressure is 3 mmHg based on IVC assessment. - ICD in situ. - Exam was compared with the prior CC echocardiographic exam performed on 04/26/2023. * * * Final * * * Last MERRITT Result Conclusion No resulted procedures found. Last EKG Result Conclusion ECG COMPLETE Collected: 12/12/2023 12:53 PM (Final result) Impression: SINUS RHYTHM WITH PREMATURE ATRIAL COMPLEXES WITH ABERRANT CONDUCTION NONSPECIFIC INTRAVENTRICULAR CONDUCTION DELAY ABNORMAL ECG Confirmed by ANTOINETTE HOOKS MD ([id number]) on 12/22/2023 10:13:05 AM IMPRESSION: 83 y/o M history of severe functional MR, ICM (s/p ICD in 2019), CABG 2011, LHC in 2021 patent OTTO-LAD and SVG to OM, occluded VG to PDA), prior stroke, COPD (prior smoking), CKD 3b, currently his predominant symptom is fatigue which may be the result of low output state. Unfortunately, age is preclusive to pursuing advanced therapies despite a clinically advanced profile with NTproBNP of 19,000 (predominantly left-sided). #Severe FMR #ICM s/p DC-ICD (in 2018) #Acute on chronic systolic HF, LVEF 15%, 2-3 MR after hospitalization #CABG (in 2011, with cath in 2021 with patent OTTO-LAD and SVG to OM, with occluded VG to PDA) #Prior stroke in 2020 s/p tPA (no deficits) on Eliquis #COPD (remote smoker) #CKD 3b #Right CEA (2012) NYHA Functional Class: II Stage: C heart failure Target weight: 166 Etiology: ischemic, valvular (FMR) Guideline Directed Medical Therapy Most recent GDMT score: 5 NYHA class 2. Slight limitation of physical activity. Ordinary physical activity results in fatigue, palpitations, dyspnea or angina pectoris (mid CHF). MARGARETTE/ARB/ARNI NO To be addressed Beta Jasbir YES - metoprolol succinate ER Dose titration in progress Aldosterone antagonist YES - spironolactone Target dose achieved SGLT2i YES - dapagliflozin propanediol Target dose achieved Hydralazine/Isosorbide Dinitrate NO Not taking due to cost Ivabradine NO Not indicated PLAN AND RECOMMENDATIONS: -start lisinopril 5 mg daily pending blood pressures -continue mitraClip/Carillon device evaluation -referred for VITAL-HF study I personally interviewed, confirmed and edited the above information as obtained by others I personally spent 62 minutes in total time involved in the management and care of this patient. Wediscussed natural history of disease, current treatment options, and future potential treatment options. We discussed diet, exercise, other non-medical management as above. Paulina Fernandes MD [facility] Section Of Heart Failure and Cardiac Transplant Medicine Heart and Vascular [facility] Des[address] [place] [id number] [facility] this [facility] Evaluation note* Diagnosis IRB 18-600 Empower Assessment of the CARILLON Mitral Contour System in Treating Functional Mitral Regurgitation Associated with Heart Failure PI: Hussein- Primary documented in this encounter [facility]04-[facility]-2024 NoteHNO ID: [id number] Author: ?, ?, ? Service: ? Author Type: ? Type: Progress Notes Filed: 01/02/2024 14:28 Note Text: IRB 18-600 Empower Assessment of the CARILLON Mitral Contour System in Treating Functional Mitral Regurgitation Associated with Heart Failure PI: Hussein Study explained/reviewed with patient's daughter Charu. Study related follow-up requirements were discussed. Risks, benefits, alternatives, personnel, and costs of the study explained/reviewed. Study related questions were addressed. Agreeable to see research before Dr. Fernandes on 01/09, followed by baseline images/testing if he is optimized. Darwin Richey RN [id number] Miscellaneous Notes* Telephone Encounter - Velma Hankins - 01/02/2024 2:54 PM EDTSummary: 18-600 Empower Consent/Screening Called the pt to schedule screening appointments for the Empower trial. Pt has an existing appt with Dr. Fernandes on 01/10/24. However there are no research echos available that day after his appt with Dr. Fernandes. I offered the pt an appointment with Dr. Fernandes on 01/08/24, followed by nurse visit, research echo,EKG and Labs for the Empower trial. He stated that he had many questions about the research study, and would prefer to keep his 01/09 appointment and speak to the research nurse at that time, before making appointments related to research. He stated he would talk to his family and if he changed his mind he would call back and let the research team know. Velma Hankins January 02, 2024 2:58 PM [facility] History of Present illness Narrative* Darwin Richey - 01/02/2024 2:27 PM EDT IRB 18-600 [facility] Assessment of the CARILLON Mitral Contour System in Treating Functional Mitral Regurgitation Associated with Heart Failure PI: Hussein Study explained/reviewed with patient's daughter Charu. Study related follow-up requirements were discussed. Risks, benefits, alternatives, personnel, and costs of the study explained/reviewed. Study related questions were addressed. Agreeable to see research before Dr. Fernandes on 01/09, followed by baseline images/testing if he is optimized. Darwin Richey RN [id number] documented in this encounterEast [facility]24 NoteHNO ID: [id number] Author: ?, ?, ? Service: ? Author Type: ? Type: Progress Notes Filed: 01/01/2024 16:25 Note Text: Study name: EMPOWER Trial IRB# [id number] PI: Andrés Hussein Contacted pt regarding above listed trial, as his daughter did not reach out to me today. He stated that I should wait for her to call me. Reinforced hours and contact number. We will call him next week if she doesn't reach out. Plastics Fitter: Darwin Richey Pager #: [phone] Memorial Hospital04-17-2024 History of Present illness Narrative* Darwin Richey - 01/01/2024 4:18 PM EDT Study name: EMPOWER Trial IRB# [id number] PI: Andrés Hussein Contacted pt regarding above listed trial, as his daughter did not reach out to me today. He statedthat I should wait for her to call me. Reinforced hours and contact number. We will call him next week if she doesn't reach out. Plastics Fitter: Darwin Richey Pager #: [phone] documented in this encounterEast [facility]04-15-2024 NoteHNO ID: [id number] Author: ?, ?, ? Service: ? Author Type: ? Type: Progress Notes Filed: 12/30/2023 15:43 Note Text: IRB [id number] [facility] Assessment of the CARILLON Mitral Contour System in Treating Functional Mitral Regurgitation Associated with Heart Failure PI: Hussein Study explained/reviewed with patient. Study related follow-up requirements were discussed. Risks, benefits, alternatives, personnel, and costs of the study explained/reviewed. Patient provided informed consent for review via email. Study related questions were addressed. Pt would like to review with his daughter and have a call later this week to discuss. He stated his daughter will call me on Saturday. Follow up appointment added. Darwin Richey RN [id number] Memorial Hospital04-15-2024 History of Present illness Narrative* Darwin Richey - 12/30/2023 3:28 PM EDT IRB [id number] [facility] Assessment of the CARILLON Mitral Contour System in Treating Functional Mitral Regurgitation Associated with Heart Failure PI: Hussein Study explained/reviewed with patient. Study related follow-up requirements were discussed. Risks, benefits, alternatives, personnel, and costs of the study explained/reviewed. Patient provided informed consent for review via email. Study related questions were addressed. Pt would like to review with his daughter and have a call later this week to discuss. He stated his daughter will call me on Saturday. Follow up appointment added. Darwin Richey, ARIES [id number] documented in this encounterEast [facility]04-11-2024 NoteHNO ID: [id number] Author: KRISTINA CEJA APRN.DOROTHY Service: ? Author Type: Nurse Practitioner Type: Progress Notes Filed: 12/27/2023 11:07 Note Text: Multidisciplinary Cardiac Team Review TRANSCATHETER MITRAL and TRICUSPID THERAPIES (TMTT) The below documentation is based on a mitral / tricuspid valve team discussion amongst the multidisciplinary team Attendees: Dr. Rain, Dr. Savage, Dr. Martinez, Dr. Chaudhry, Dr. Hutson, Dr. Brady, Dr. Ventura, Dr. Herrera, Dr. Anguiano, Dr. Mccord, Dr. Clayton, Dr. Harry, Dr. Lock, Dr. Nathan, Dr. Roland, Flaca Ceja, DOROTHY, Jase Underwood RN, Yanick Saravia RN PATIENT NAME: José Miguel Roth Jr. DATE: December 26, 2023 Patient History: 83 M Severe FMR ICM s/p DC-ICD (in 2018) CABG (in 2011, with cath in 2021 with patent OTTO-LAD and SVG to OM, with occluded VG to PDA) Prior stroke in 2020 s/p tPA (no deficits) on Eliquis COPD (remote smoker) CKD (crea ~ 1.5-2.0) Right CEA (2012) Team Members Seen/ Presenting Ramya Brady Reason: FMR HF: Dr. Fernandes CTS: None Discussion / recommendations: After review and discussion of patient presentation, the following thoughts / recommendations were made. Review/Recs: MERRITT reviewed. Was done when patient was very decompensated, so MR likely overstated. Repeat echo once euvolemic. Reviewed, MR improved Stella Mancuso Patient notified: I spoke with Rory and his daughter Charu on the phone about the above recommendations and next steps in this process. They understand this is a research trial and they will be hearing from our research team soon regarding candidacy and next steps. This abstract and interpretation of the conversations amongst the mitral / tricuspid MDT members has been completed by: Kristina Ceja APRN.DOROTHYNorwalk Memorial Hospital04-11-2024 History of Present illness Narrative* Kristina Ceja APRN.DOROTHY - 12/26/2023 4:38 PM EDT Multidisciplinary Cardiac Team Review TRANSCATHETER MITRAL and TRICUSPID THERAPIES (TMTT) The below documentation is based on a mitral / tricuspid valve team discussion amongst the multidisciplinary team Attendees: Dr. Rain, Dr. Savage, Dr. Martinez, Dr. Chaudhry, Dr. Hutson, Dr. Brady, Dr. Ventura, , Dr. Anguiano, Dr. Mccord, Dr. Clayton, Dr. Harry, Dr. Lock, Dr. Nathan, Dr. Roland, Flaca Ceja, DOROTHY, Jase Underwood, RN, Yanick Saravia RN PATIENT NAME: José Miguel Roth Jr. DATE: December 26, 2023 Patient History: 83 M Severe FMR ICM s/p DC-ICD (in 2018) CABG (in 2011, with cath in 2021 with patent OTTO-LAD and SVG to OM, with occluded VG to PDA) Prior stroke in 2020 s/p tPA (no deficits) on Eliquis COPD (remote smoker) CKD (crea ~ 1.5-2.0) Right CEA (2012) Team Members Seen/ Presenting Conorcian Dr. Brady Reason: FMR HF: Dr. Fernandes CTS: None Discussion / recommendations: After review and discussion of patient presentation, the following thoughts / recommendations were made. Review/Recs: MERRITT reviewed. Was done when patient was very decompensated, so MR likely overstated. Repeat echo once euvolemic. Reviewed, MR rocío Mancuso Patient notified: I spoke with Rory and his daughter Charu on the phone about the above recommendations and next steps in this process. They understand this is a research trial and they will be hearing from our research team soon regarding candidacy and next steps. This abstract and interpretation of the conversations amongst the mitral / tricuspid MDT members has been completed by: Kristina Ceja APRN.DOROTHY documented in this encounterEast [facility]04-11-2024 NoteHNO ID: [id number] Author: EFREN BRADY MD Service: ? Author Type: Physician Type: Progress Notes Filed: 12/26/2023 13:56 Note Text: [facility] Department of Cardiovascular Medicine SECTION OF CARDIOVASCULAR IMAGING December 26, 2023 Visit Type: New patient Reason for visit: Severe MR HPI: 83 year old gentleman here for severe FMR. Has ICM s/p DC-ICD (in 2018), prior CABG (in 2011, with cath in 2021 with patent OTTO-LAD and SVG to OM, with occluded VG to PDA), prior stroke in 2020 s/p tPA (no deficits) on Eliquis, COPD (remote smoker), and CKD (crea ~ 1.5-2.0), right CEA Relevant Studies: Last RHC in November 2023 Hemodynamic Data: RA: 7 RV: 72/4, 10 PA: 67/21 (43) PCWP: 26 large V waves up to 41 noted on the pulmonary capillary wedge pressure tracing. CO: 4.26 CI: 2.12 O2 Sat: PA sat: 58%, AO sat: 94% BP: 117/68 (84) TP PVR: 4.0 Wood units SVR: 1446 Metric units Review of Systems CONSTITUTIONAL- No weight loss, No fevers, chills, or night sweats HEENT- Negative for frequent or significant headaches, No changes in hearing or vision, no nose bleeds or other nasal problems NECK- Negative for lumps, goiter, pain and significant neck swelling CARDIOVASCULAR- as per HPI RESP- No coughing, wheezing. No hemoptysis. GI- No nausea, No vomiting. No changes in BM, No diarrhea, No constipation, No blood in stools. ENDO- No changes in urination frequency. No increase thirst. GENITOURINARY- No pain with urination. No blood in urine. NEUROLOGIC:Negative for focal numbness or weakness, headaches and dizziness MUSCULOSKELETAL- Negative for joint pain or swelling, back pain or muscle pain. SKIN- Negative for lesions, rash, and itching. HEMATOLOGY/LYMPHOLOGY- Negative for prolonged bleeding, bruising easily or swollen nodes. All other reviewed and negative other than HPI. Medical History: 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 ([facility]) 09/03/2022 Dyslipidemia GERD (gastroesophageal reflux disease) Heart failure, acute systolic ([facility]) Hypertension Hypothyroid Myocardial infarct, old Occlusion and stenosis of carotid artery without mention of cerebral infarction Prostate cancer ([facility]) 2020 PVD (peripheral vascular disease) ([facility]) 11/17/2012 Stroke (cerebrum) ([facility]) 09/03/2022 Systolic heart failure ([facility]) Thyroid disorder 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 kidney disease, unspecified CKD stage, unspecified whether superintendent container terminal insulin use ([facility]) 04/26/2023 Ventricular tachycardia ([facility]) 04/28/2012 Surgical History: PAST SURGICAL HISTORY Procedure Laterality Date ANGIOGRAPHY, EXT CAROTID Right 2011 CABG (3) VEIN GRAFTS AND ARTERIAL GRAFT(S) 05/01/2012 Median sternotomy, coronary artery bypass grafting with in situ left internal thoracic artery to the LAD, and reverse saphenous vein graft to the posterior descending artery and obtuse marginal. HEART CATHETERIZATION Family History: FAMILY HISTORY Problem Relation Age of Onset other (atrial fibrillation) Mother other (CHF) Mother other (Other) Mother at age 96 Coronary Artery Disease Father Heart Attack Father fatal CT at age 77 Ischemic Heart Disease Brother CABGx6 first at age 72 No Known Problems Maternal Grandmother No Known Problems Maternal Grandfather No Known Problems Paternal Grandmother No Known Problems Paternal Grandfather No Known Problems Daughter No Known Problems Daughter No Known Problems Daughter other (Other) Other paternal cousin at age [address] Social History: Social History Tobacco Use Smoking status: Former Packs/day: 1.00 Years: 10.00 Additional pack years: 0.00 Total pack years: 10.00 Types: Cigarettes, Pipe Quit date: 04/28/1982 Years since quittin.6 Passive exposure: Never Smokeless tobacco: Never Vaping Use Vaping Use: Never used Substance Use Topics Alcohol use: Yes Comment: rarely Drug use: Never Allergies: ALLERGIES Allergen Reactions Latex Rash Adhesive Tape (Keyanna* Rash Current Medications dapagliflozin propanediol (FARXIGA) 10 mg tablet Take 10 mg by mouth daily with breakfast. furosemide (LASIX) 40 mg tablet Take 40 mg by mouth two times a day. Cholecalciferol, Vitamin D3, 25 mcg (1,000 unit) cap Take 1,000 Units by mouth as needed. nitroglycerin sublingual (NITROQUICK) 0.4 mg SL tablet as directed. SPECIAL SERVICE REPRESENTATIVE 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 aspirin, enteric coated (ASPIRIN, ENTERIC COATED) 81 mg EC tablet Take 1 tablet by mouth once daily. ezetimibe (ZETIA) 10 mg tablet Take 10 mg by mouth once daily. metoprolol succinate ER (TOPROL XL) 25 mg 24 hr tablet Take 1 tablet by mouth once daily. ubidecarenone Q-10 (COENZYME Q-10) 10 mg cap Take 10 mg by mouth once daily. thyro (more content not included)...[facility]04-11-20[facility] History of Present illness Narrative* Efren Brady MD - 12/26/2023 11:15 AM EDT [facility] Department of Cardiovascular Medicine SECTION OF CARDIOVASCULAR IMAGING December 26, 2023 Visit Type: New patient Reason for visit: Severe MR HPI: 83 year old gentleman here for severe FMR. Has ICM s/p DC-ICD (in 2019), prior CABG (in 2011, with cath in 2021 with patent OTTO-LAD and SVG to OM, with occluded VG to PDA), prior stroke in 2020 s/p tPA (no deficits) on Eliquis, COPD (remote smoker), and CKD (crea ~ 1.5-2.0), right CEA Relevant Studies: Last RHC in November 2023 Hemodynamic Data: RA: 7 RV: 72/4, 10 PA: 67/21 (43) PCWP: 26 large V waves up to 41 noted on the pulmonary capillary wedge pressure tracing. CO: 4.26 CI: 2.12 O2 Sat: PA sat: 58%, AO sat: 94% BP: 117/68 (84) TP PVR: 4.0 Wood units SVR: 1446 Metric units Review of Systems CONSTITUTIONAL- No weight loss, No fevers, chills, or night sweats HEENT- Negative for frequent or significant headaches, No changes in hearing or vision, no nose bleeds or other nasal problems NECK- Negative for lumps, goiter, pain and significant neck swelling CARDIOVASCULAR- as per HPI RESP- No coughing, wheezing. No hemoptysis. GI- No nausea, No vomiting. No changes in BM, No diarrhea, No constipation, No blood in stools. ENDO- No changes in urination frequency. No increase thirst. GENITOURINARY- No pain with urination. No blood in urine. NEUROLOGIC:Negative for focal numbness or weakness, headaches and dizziness MUSCULOSKELETAL- Negative for joint pain or swelling, back pain or muscle pain. SKIN- Negative for lesions, rash, and itching. HEMATOLOGY/LYMPHOLOGY- Negative for prolonged bleeding, bruising easily or swollen nodes. All other reviewed and negative other than HPI. Medical History: 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 ([facility]) 09/03/2022 Dyslipidemia GERD (gastroesophageal reflux disease) Heart failure, acute systolic ([facility]) Hypertension Hypothyroid Myocardial infarct, old Occlusion and stenosis of carotid artery without mention of cerebral infarction Prostate cancer ([facility]) 2020 PVD (peripheral vascular disease) ([facility]) 11/17/2012 Stroke (cerebrum) ([facility]) 09/03/2022 Systolic heart failure ([facility]) Thyroid disorder 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 kidney disease, unspecified CKD stage, unspecified whether care home insulin use ([facility]) 04/26/2023 Ventricular tachycardia ([facility]) 04/28/2012 Surgical History: PAST SURGICAL HISTORY Procedure Laterality Date ANGIOGRAPHY, EXT CAROTID Right 2011 CABG (3) VEIN GRAFTS & ARTERIAL GRAFT(S) 05/01/2012 Median sternotomy, coronary artery bypass grafting with in situ left internal thoracic artery to the LAD, and reverse saphenous vein graft to the posterior descending artery and obtuse marginal. HEART CATHETERIZATION Family History: FAMILY HISTORY Problem Relation Age of Onset other (atrial fibrillation) Mother other (CHF) Mother other (Other) Mother at age 96 Coronary Artery Disease Father Heart Attack Father fatal CT at age 77 Ischemic Heart Disease Brother CABGx6 first at age 72 No Known Problems Maternal Grandmother No Known Problems Maternal Grandfather No Known Problems Paternal Grandmother No Known Problems Paternal Grandfather No Known Problems Daughter No Known Problems Daughter No Known Problems Daughter other (Other) Other paternal cousin at age [address] [place] Social History: Social History Tobacco Use Smoking status: Former Packs/day: 1.00 Years: 10.00 Additional pack years: 0.00 Total pack years: 10.00 Types: Cigarettes, Pipe Quit date: 04/28/1982 Years since quittin.6 Passive exposure: Never Smokeless tobacco: Never Vaping Use Vaping Use: Never used Substance Use Topics Alcohol use: Yes Comment: rarely Drug use: Never Allergies: ALLERGIES Allergen Reactions Latex Rash Adhesive Tape (Keyanna* Rash Current Medications dapagliflozin propanediol (FARXIGA) 10 mg tablet Take 10 mg by mouth daily with breakfast. furosemide (LASIX) 40 mg tablet Take 40 mg by mouth two times a day. Cholecalciferol, Vitamin D3, 25 mcg (1,000 unit) cap Take 1,000 Units by mouth as needed. nitroglycerin sublingual (NITROQUICK) 0.4 mg SL tablet as directed. SPECIAL SERVICE REPRESENTATIVE 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 aspirin, enteric coated (ASPIRIN, ENTERIC COATED) 81 mg EC tablet Take 1 tablet by mouth once daily. ezetimibe (ZETIA) 10 mg tablet Take 10 mg by mouth once daily. metoprolol succinate ER (TOPROL XL) 25 mg 24 hr tablet Take 1 tablet by mouth once daily. ubidecarenone Q-10 (COENZYME Q-10) 10 mg cap Take 10 mg by mouth once daily. thyroid, pork, 60 mg tablet Take 75 mg by mouth once daily. atorvastatin (LIPITOR) 40 mg tablet Take 40 mg by mouth daily at bedtime. Physical Exam BP 128/64 Pulse 78 Resp 12 Ht 182.9 cm (6') Wt 77.1 kg (170 lb) SpO2 97% BMI 23.06 kg/m GENERAL: Alert, no distress, cooperative. SKIN: Skin color, texture, turgor normal. No rashes or lesions. HEENT: Normocephalic. No masses, lesions. Conjunctivae/corneas clear. NECK: No jugulovenous distention. No carotid bruits. Carotid pulse normal contour. Supple. LUNGS: Lungs clear to auscultation. No wheezing or rhonchi. CARDIAC: Normal S1 and S2; systolic murmur ABDOMEN: Abdomen soft, non-tender. No masses or organomegaly. EXTREMITIES: Extremities normal, no deformities, edema, clubbing or skin discoloration. Distal pulses present bilaterally. NEURO: Oriented to person, place and time, cooperative. No focal deficits. PSYCH: Pleasant; affect, mood and behavior appropriate. ECG, Labs and Imaging tests were reviewed. Last ECHO Result Conclusion ECHO Collected: 12/12/2023 11:11 AM (Final result) Impression: CONCLUSIONS: - Exam indication: Evaluation of known heart failure to guide therapy - The left ventricle is severely dilated. Left ventricular systolic function is severely decreased. EF = 15 5% (2D 4-ch.) Definity contrast used for endocardial border detection. Left ventricular diastolic function was not evaluated due to >2+ MR. - The right ventricle is normal in size. Right ventricular systolic function is low normal. - The left atrial cavity is dilated. - The visualized aorta is borderline dilated with a maximal dimension of 4.0 cm. - There is moderate (2+ - 3+) holosystolic mitral valve regurgitation due to apical tethering of normal mitral leaflet caused by LV enlargement. Regurgitant orifice area (PISA) is 0.26 cm . - Estimated right ventricular systolic pressure is 42 mmHg consistent with mild pulmonary hypertension. Estimated right atrial pressure is 3 mmHg based on IVC assessment. - ICD in situ. - Exam was compared with the prior echocardiographic exam performed on 04/26/2023. * * * Final * * * Last MERRITT Result Conclusion No resulted procedures found. Last EKG Result Conclusion ECG COMPLETE Collected: 12/12/2023 12:53 PM (Final result) Impression: SINUS RHYTHM WITH PREMATURE ATRIAL COMPLEXES WITH ABERRANT CONDUCTION NONSPECIFIC INTRAVENTRICULAR CONDUCTION DELAY ABNORMAL ECG Confirmed by ANTOINETTE HOOKS MD ([id number]) on 12/22/2023 10:13:05 AM Outside records were also reviewed, when available. IMPRESSION and PLAN: 83 with MR. Has ICM s/p DC-ICD (in 2018), prior CABG (in 2011, with cath in 2021 with patent OTTO-LAD and SVG to OM, with occluded VG to PDA), prior stroke in 2020 s/p tPA (no deficits) on Eliquis, COPD (remote smoker), CKD (crea ~ 1.5- 2.0), and right CEA (2012) He was recently admitted to [place] in Sep and November with SANTILLAN - treated with IV diuretics. Had a RHCwith elevated pressures (PCWP of 26 with V waves up to 41, PA 67/21 with mean of 43) for which he was recommended admission. A MERRITT was done on that same day - which led to sore throat, couldn't eat, and chest/abdominal pain. He is now on Farxiga, Lasix 40 bid, Adactone 25 mg, along with toprol 25 Lives home by himself. Is independent. Currently feels well. He is scheduled to see Dr. Fernandes end of the month. MERRITT with severe MR. Most recent echo end of November, when he was more compensated, with less MR We discussed secondary mitral regurgitation and the need to be on optimal GDMT as deemed appropriate by a HF specialist. If significant MR and symptoms persist despite medical optmization, then pecutaneous repair using the MitraClip technology is reasonable. I also discussed with him investigational devices including the Carillon. I will place an ENT consult prior to proceeding with another MERRITT to guide any procedure. Efren Brady MD, [facility] ux consultant, [facility] of [facility] Staff, Section of Cardiovascular Imaging Department of Cardiovascular Medicine [facility] documented in this encounterEast [facility] City Hospital04-10-2024 NoteUnFisher-[facility]04-[facility]-2024 Miscellaneous Notes* Telephone Encounter - Bela Grimes - 12/17/2023 12:08 PM EDT December 17, 2023 Patient Contact Number: [phone] Patient last seen within the last year: Yes Date of last office visit: 12/12/2023 Reason For Call: Daughter called to verify okay for Mr. Roth to start cardiac rehabilitation. Physician: Virgil Carrillo MD Patient was informed that non-urgent calls may be returned within the next three business days. Yes Bela Grimes documented in this encounterEast Liverpool City Hospital03-28-2024 NoteHNO ID: [id number] Author: CARMELINA CARRASCO APRN.DOROTHY Service: ? Author Type: Nurse Practitioner Type: Progress Notes Filed: 12/23/2023 23:39 Note Text: [facility] Department of Cardiovascular Medicine SECTION OF CARDIOVASCULAR IMAGING OUTPATIENT VISIT DATE December 12, 2023 OUTPATIENT VISIT TYPE ESTABLISHED PRIMARY CARE PHYSICIAN: Francisca Thompson [address] [place] [address] REFERRING PHYSICIAN: No referring provider defined for this encounter. CHIEF COMPLAINT: Severe mitral regurgiation HISTORY OF PRESENT ILLNESS: Mr. Roth is a 83 year old male with PMH of ischemic cardiomyopathy (LVEF 20%), CAD s/p CABG x 3 2005 (occluded SVG to PDA), secondary MR, Ventricular tachycardia s/p ICD, PAD, ischemic stroke, CKD IIIb, and HTN who presents today for follow-up visit. He was last seen in office by Dr. Carrillo on 10/29/23 at which time he followed up after hospital admission for ADHF after stopping Farxiga due to kidney concerns. Reported stable weight around 177 lbs. He recommended lasix once a day, continued metoprolol XL 25 mg a day and recommended restarting Farxiga if repeat GFR stable (>=20). He was admitted to the hospital in [place] on 11/18 for FVO, diuresed with IV lasix. He was recommended for MVr, however, he wanted to discuss with Dr. Carrillo. OSH MERRITT 11/18 reports Severe MR with systoic flow reversal in the right pulmonary veins consistent with severe mitral regurgitation. Since discharge, weight has been stable at 166 lbs (177 lbs last office visit) . He walked from the building, denies shortness of breath. No edema in legs or abdomen. Occasional lightheaded/dizziness when bending over. His daughters are present at today's visit. They feel he is more symptomatic than his reports. Home Blood pressure 100-115/65-75. Heart rate 65-76 bpm Current GDMT: lasix 40 mg BID, Metoprolol succ 25 mg daily, Spironolactone 12.5 mg daily -reportedly started on Entresto during hospitalization, however, blood pressure did not tolerate this 11/24 eGFR 31.2 -->11/28 eGFR 24, SCr 2.55 PAST CARDIAC HISTORY: Past medical history includes but is not limited to: Ischemic cardiomyopathy LVEF approximately 20% Secondary mitral regurgitation Coronary artery disease, s/p CABG x 3 (OTTO to LAD, SVG to PDA, SVG to OM) in 2005, last coronary angiography in 2021 showed patent OTTO to LAD and SVG to OM, and occluded SVG to PDA Ventricular tachycardia, ICD Peripheral artery disease Ischemic stroke, tPA August 2021, prescribed Eliquis, subsequently staged CKD stage IIIb Hypertension 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 ([facility]) 09/03/2022 Dyslipidemia GERD (gastroesophageal reflux disease) Heart failure, acute systolic [facility] [facility]) Hypertension Hypothyroid Myocardial infarct, old Occlusion and stenosis of carotid artery without mention of cerebral infarction Prostate cancer ([facility]) 2020 PVD (peripheral vascular disease) ([facility]) 11/17/2012 Stroke (cerebrum) ([facility]) 09/03/2022 Systolic heart failure ([facility]) Thyroid disorder 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 kidney disease, unspecified CKD stage, unspecified whether care home insulin use ([facility]) 04/26/2023 Ventricular tachycardia ([facility]) 04/28/2012 PAST SURGICAL HISTORY [...] Cigarettes, Pipe Quit date: 04/28/1982 Years since quittin.6 Passive exposure: Never Smokeless tobacco: Never Vaping Use Vaping Use: Never used Substance Use Topics Alcohol use: Yes Comment: rarely Drug use: Never FAMILY HISTORY Problem Relation Age of Onset other (atrial fibrillation) Mother other (CHF) Mother other (Other) Mother at age 96 Coronary Artery Disease Father Heart Attack Father fatal CT at age 77 Ischemic Heart Disease Brother CABGx6 first at age 72 No Known Problems Maternal Grandmother No Known Problems Maternal Grandfather No Known Problems Paternal Grandmother No Known Problems Paternal Grandfather No Known Problems Daughter No Known Problems Daughter No Known Problems Daughter other (Other) Other paternal cousin at age [address] ALLERGIES: ALLERGIES Allergen Reactions Latex Rash Adhesive Tape (Keyanna* Rash MEDICATIONS: fu (more content not included)...[facility]03-28-2024 Instructions* Patient Instructions* Carmelina Carrasco APRN.CNP - 12/12/2023 2:38 PM EDT -I will call you after discussing echo and MERRITT results with Dr. Carrillo. I will let you know the next steps/recommendations at that time. Future Appointments Date Time Provider Department Center 01/10/2024 10:15 AM Paulina Fernandes MD CARD CHF [facility]ER Mn J Bldg 02/18/2024 9:00 AM ECHO A17 CARD MAIN CFLAMN Mn A Bldg 02/18/2024 11:30 AM EKGJ1-4 MAIN [id number] Mn J Bldg 02/18/2024 12:30 PM Virgil Carrillo MD [facility] J Bldg 03/24/2024 1:00 PM LAB FAVIOLA ALSTON SANAM ALSTON 03/31/2024 1:15 PM Yung Kim MD RADTSA [place] [facility] 03/31/2024 1:30 PM [facility] SANAM LA G[facility]IEL documented in [facility] History of Present illness Narrative* Carmelina Carrasco APRN.CNP - 12/12/2023 1:30 PM EDT Images from the original note were not included. [facility] Department of Cardiovascular Medicine SECTION OF CARDIOVASCULAR IMAGING OUTPATIENT VISIT DATE December 12, 2023 OUTPATIENT VISIT TYPE ESTABLISHED PRIMARY CARE PHYSICIAN: Francisca Thompson [address] [id number] REFERRING PHYSICIAN: No referring provider defined for this encounter. CHIEF COMPLAINT: Severe mitral regurgiation HISTORY OF PRESENT ILLNESS: Mr. Roth is a 83 year old male with PMH of ischemic cardiomyopathy (LVEF 20%), CAD s/p CABG x 3 2005 (occluded SVG to PDA), secondary MR, Ventricular tachycardia s/p ICD, PAD, ischemic stroke, CKD IIIb, and HTN who presents today for follow-up visit. He was last seen in office by Dr. Carrillo on 10/29/23 at which time he followed up after hospital admission for ADHF after stopping Farxiga due to kidney concerns. Reported stable weight around 177 lbs. He recommended lasix once a day, continued metoprolol XL 25 mg a day and recommended restarting Farxiga if repeat GFR stable (>=20). He was admitted to the hospital in [place] on 11/18 for FVO, diuresed with IV lasix. He was recommended for MVr, however, he wanted to discuss with Dr. Carrillo. OSH MERRITT 11/18 reports Severe MR with systoic flow reversal in the right pulmonary veins consistent with severe mitral regurgitation. Since discharge, weight has been stable at 166 lbs (177 lbs last office visit) . He walked from the building, denies shortness of breath. No edema in legs or abdomen. Occasional lightheaded/dizziness when bending over. His daughters are present at today's visit. They feel he is more symptomatic than his reports. Home Blood pressure 100-115/65-75. Heart rate 65-76 bpm Current GDMT: lasix 40 mg BID, Metoprolol succ 25 mg daily, Spironolactone 12.5 mg daily -reportedly started on Entresto during hospitalization, however, blood pressure did not tolerate this 11/24 eGFR 31.2 -->11/28 eGFR 24, SCr 2.55 PAST CARDIAC HISTORY: Past medical history includes but is not limited to: Ischemic cardiomyopathy LVEF approximately 20% Secondary mitral regurgitation Coronary artery disease, s/p CABG x 3 (OTTO to LAD, SVG to PDA, SVG to OM) in 2005, last coronary angiography in 2021 showed patent OTTO to LAD and SVG to OM, and occluded SVG to PDA Ventricular tachycardia, ICD Peripheral artery disease Ischemic stroke, tPA August 2021, prescribed Eliquis, subsequently staged CKD stage IIIb Hypertension 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 ([facility]) 09/03/2022 Dyslipidemia GERD (gastroesophageal reflux disease) Heart failure, acute systolic ([facility]) Hypertension Hypothyroid Myocardial infarct, old Occlusion and stenosis of carotid artery without mention of cerebral infarction Prostate cancer ([facility]) 2020 PVD (peripheral vascular disease) ([facility]) 11/17/2012 Stroke (cerebrum) ([facility]) 09/03/2022 Systolic heart failure ([facility]) Thyroid disorder 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 kidney disease, unspecified CKD stage, unspecified whether superintendent container terminal insulin use ([facility]) 04/26/2023 Ventricular tachycardia ([facility]) 04/28/2012 PAST SURGICAL HISTORY [...] Cigarettes, Pipe Quit date: 04/28/1982 Years since quittin.6 Passive exposure: Never Smokeless tobacco: Never Vaping Use Vaping Use: Never used Substance Use Topics Alcohol use: Yes Comment: rarely Drug use: Never FAMILY HISTORY Problem Relation Age of Onset other (atrial fibrillation) Mother other (CHF) Mother other (Other) Mother at age 96 Coronary Artery Disease Father Heart Attack Father fatal CT at age 77 Ischemic Heart Disease Brother CABGx6 first at age 72 No Known Problems Maternal Grandmother No Known Problems Maternal Grandfather No Known Problems Paternal Grandmother No Known Problems Paternal Grandfather No Known Problems Daughter No Known Problems Daughter No Known Problems Daughter other (Other) Other paternal cousin at age [address] ALLERGIES: ALLERGIES Allergen Reactions Latex Rash Adhesive Tape (Keyanna* Rash MEDICATIONS: furosemide (LASIX) 40 mg tablet Take 40 mg by mouth once daily. Cholecalciferol, Vitamin D3, 25 mcg (1,000 unit) cap Take 1,000 Units by mouth as needed. nitroglycerin sublingual (NITROQUICK) 0.4 mg SL tablet as directed. SPECIAL SERVICE REPRESENTATIVE 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 aspirin, enteric coated (ASPIRIN, ENTERIC COATED) 81 mg EC tablet Take 1 tablet by mouth once daily. ezetimibe (ZETIA) 10 mg tablet Take 10 mg by mouth once daily. metoprolol succinate ER (TOPROL XL) 25 mg 24 hr tablet Take 1 tablet by mouth once daily. ubidecarenone Q-10 (COENZYME Q-10) 10 mg cap Take 10 mg by mouth once daily. thyroid, pork, 60 mg tablet Take 75 mg by mouth once daily. atorvastatin (LIPITOR) 40 mg tablet Take 40 mg by mouth daily at bedtime. REVIEW OF SYSTEMS: GENERAL: Negative for: Weight loss or gain, Fever or Chills, Weakness and Sleep difficulties. HEENT: Negative for: Headache, Impaired Vision, Glasses, Hearing Impairment, Ringing in Ears, Nosebleeds, Poor dental care, Bleeding Gums, Dentures NECK: Negative for: Swelling, Pain, Stiffness CARDIAC: See HPI RESPIRATORY: + SOB Negative for: Cough, Blood in Sputum, Apnea GASTROINTESTINAL: Negative for: Trouble swallowing, Heartburn, Change in bowel habits, Blood in stool, Dark black stools MUSCULOSKELETAL: Negative for: Muscle or joint pain, Stiffness , Joint swelling NEUROLOGIC/PSYCHIATRIC: Negative for: Weakness, Paralysis, Numbness, Tingling, Tremor, Nervousness,Depressed mood, Memory loss SKIN: Negative for: Rashes, Itching HEMATOLOGICAL/LYMPHATIC: Negative for: Easy bruising , Easy bleeding ENDOCRINE: Negative for: Heat or cold intolerance, Excessive sweating, Frequent urination, Frequentthirst PHYSICAL EXAMINATION: BP 117/76 (BP Site: Left Arm, BP Position: Sitting, BP Cuff Size: Regular Adult) Pulse 81 Resp 18 Ht 182.9 cm (6') Wt 75.3 kg (166 lb) SpO2 97% BMI 22.51 kg/m General: Well appearing, in no acute distress. Skin: No clubbing, no cyanosis. Eyes: Extra ocular movements intact Neck: No jugular venous distention Lungs: Clear to auscultation bilaterally, no wheezing or rhonchi. Heart: Regular rhythm, PMI not displaced, S1, S2 normal, no S3, no S4, + murmur 3/6 at apex Abdomen: Soft, nontender Extremities: No peripheral edema . Neuro: Oriented to person, place and time, alert, cooperative, gait coordinated. CARDIOVASCULAR MEDICINE TESTING: OSH MERRITT 11/19/23 Conclusions Left Ventricle: Global left ventricular systolic function is severely reduced. EF range is estimated at 15 % -20 %. Right Ventricle: Right ventricular systolic function appears reduced. Left Atrium: The left atrium appears enlarged. Mitral Valve: There is systoic flow reversal in the right pulmonary veins consistent with severe mitral regurgitation.. Severe mitral regurgitation. Mitral Valve Measurements MV Vmax: 1.11 m/s. MV Vmean: 0.62 m/s. MV PGmax: 5.00 mmHg. MV PGmean: 2.00 mmHg. Tricuspid Valve: Mild tricuspid regurgitation. Aorta: Moderate atherosclerotic plaque is seen in the aorta. Medications Date Time Name Route Form Dose Units Ordered By Given By Comment 11/19/2023 03:41 PM Midazolam HCL (Versed) 6 milligrams 11/19/2023 03:41 PM Fentanyl (Opiates) 50 micrograms Measurements Mitral Valve Label Value Normal Value MV E Vmax 1.04 m/s MV A Vmax 0.55 m/s MV E/A 1.89 Valvular Assessment LVOT 0.7 - 1.1 m/sec Aortic Valve 1.0 - 1.7 m/sec Mitral Valve 0.6 - 1.3 m/sec Tricuspid Valve 0.3 - 0.7 m/sec Pulmonic Valve 0.6 - 0.9 m/sec Regurgitation Trivial Severe Mild Max Velocity 1.04 m/sec Max Gradient 5.00 mmHg Mean Gradient 2.00 mmHg Findings Left Ventricle: Global left ventricular systolic function is severely reduced. EF range is estimated at 15 % -20 %. Right Ventricle: Right ventricular systolic function appears reduced. Left Atrium: The left atrium appears enlarged. Right Atrium: The right atrium appears enlarged. Mitral Valve: There is systoic flow reversal in the right pulmonary veins consistent with severe mitral regurgitation.. Severe mitral regurgitation. Mitral Valve Measurements MV Vmax: 1.11 m/s. MV Vmean: 0.62 m/s. MV PGmax: 5.00 mmHg. MV PGmean: 2.00 mmHg. Aortic Valve: Trivial aortic valve regurgitation. Tricuspid Valve: Mild tricuspid regurgitation. Pulmonic Valve: Pulmonary valve appears normal. Aorta: Moderate atherosclerotic plaque is seen in the aorta. Last ECHO Result Conclusion ECHO Collected: 04/26/2023 1:20 PM (Final result) Impression: CONCLUSIONS: - Exam indication: Evaluation of known [...] motion likely related to ischemic heart disease. - Estimated right ventricular systolic pressure is not reported due to an insufficient tricuspid regurgitation signal. Estimated right atrial pressure is 3 mmHg based on IVC assessment. - Exam was compared with the prior CC echocardiographic exam performed on 06/06/2022. Similar findings. * * * Final * * * Last MERRITT Result Conclusion No resulted procedures found. Last EKG Result Conclusion ECG COMPLETE Collected: 10/29/2023 11:01 AM (Final result) Impression: SINUS RHYTHM WITH 1ST DEGREE AV BLOCK WITH FREQUENT PREMATURE VENTRICULAR COMPLEXES MINIMAL VOLTAGE CRITERIA FOR LVH, MAY BE NORMAL VARIANT ( Robert product ) NONSPECIFIC INTRAVENTRICULAR BLOCK ABNORMAL ECG Confirmed by ANAM LUTZ MD ([id number]) on 11/21/2023 10:12:55 AM NT Pro BNP Date Value Ref Range Status 12/12/2023 14,918 (H) <450 pg/mL Final Glucose (mg/dL) Date Value 12/12/2023 93 11/09/2021 113 Potassium (mmol/L) Date Value 12/12/2023 4.1 11/09/2021 4.3 Sodium (mmol/L) Date Value 12/12/2023 140 11/09/2021 137 Chloride (mmol/L) Date Value 12/12/2023 97 11/09/2021 102 CO2 (mmol/L) Date Value 12/12/2023 25 11/09/2021 26 Creatinine (mg/dL) Date Value 12/12/2023 2.32 11/09/2021 1.50 BUN (mg/dL) Date Value 12/12/2023 40 11/09/2021 28 Anion Gap (mmol/L) Date Value 12/12/2023 18 11/09/2021 9 Calcium (mg/dL) Date Value 11/09/2021 10.5 Calcium, Total (mg/dL) Date Value 12/12/2023 10.1 Protein, Total (g/dL) Date Value 12/12/2023 7.4 11/09/2021 7.4 Albumin (g/dL) Date Value 12/12/2023 4.0 11/09/2021 4.3 Bilirubin, Total (mg/dL) Date Value 12/12/2023 0.7 11/09/2021 0.7 Alkaline Phosphatase (U/L) Date Value 12/12/2023 118 11/09/2021 111 AST (U/L) Date Value 12/12/2023 26 11/09/2021 20 ALT (U/L) Date Value 12/12/2023 14 11/09/2021 12 I have personally reviewed the Electrocardiogram and Echocardiogram and labs. IMPRESSION: Mr. Roth is a 83 year old male with PMH of ischemic cardiomyopathy (LVEF 20%), CAD s/p CABG x 3 2005 (occluded SVG to PDA), secondary MR, Ventricular tachycardia s/p ICD, PAD, ischemic stroke, CKD IIIb, and HTN who presents today for follow-up visit. He was admitted to the hospital in [place] on 11/18 for FVO, diuresed with IV lasix. He was recommended for MVr, however, he wanted to discuss with Dr. Carrillo. OSH MERRITT 11/18 reports Severe MR with systoic flow reversal in the right pulmonary veins consistent with severe mitral regurgitation. Since discharge, weight has been stable at 166 lbs (177 lbs last office visit) . He walked from the building, denies shortness of breath. No edema in legs or abdomen. Occasional lightheaded/dizziness when bending over. His daughters are present at today's visit. They feel he is more symptomatic than his reports. Echo today shows LVEF 15%, 2-3+ MR Current GDMT: Metoprolol succ 25 mg daily, Spironolactone 12.5 mg daily, Farxiga 10 mg (restarted),lasix 40 mg BID. Entresto not tolerated due to hypotension 11/24 GFR 31.2 11/28 GFR 24, SCr 2.55 12/11 GFR 28 Scr 2.32 PLAN AND RECOMMENDATIONS: discussed with Dr. Carrillo -Consult with heart failure as scheduled in December -follow-up with local pals specialist as scheduled this month -pt has been scheduled to see Dr. Brady for evaluation for Mitraclip -advised to call Dr. Carrillo's office if increase in weight, SOB, swelling -recommendation and follow-up discussed with Mr. Roth and his daughter, Charu Future Appointments Date Time Provider Department Center 12/26/2023 11:15 AM Efren Brady MD CARIMN Mn J dg 01/10/2024 10:15 AM Paulina Fernandes MD CARD CHF JENNIFER Mn J Bldg 02/18/2024 9:00 AM ECHO A17 CARD MAIN CFLAMN Mn A Bldg 02/18/2024 11:30 AM EKGJ1-4 MAIN [id number] Mn J dg 02/18/2024 12:30 PM Virgil Carrillo MD CARIMN Mn J Bldg 03/24/2024 1:00 PM [facility] SA[facility] 03/31/2024 1:15 PM Yung Kim MD RADTSA [place]IEL 03/31/2024 1:30 PM [facility] I personally interviewed, confirmed and edited the above information if obtained by others. CONTACT INFORMATION: Carmelina Carrasco APRN.CNP documented in this encounterEast [facility] City [facility]03-18-2024 NoteUnFisher[facility]03-12-2024 Miscellaneous Notes* Telephone Encounter - Nhi Morales - 11/26/2023 3:30 PM EDT Patient's daughter called stating patient had been admitted to a hospital in [place] for fluid overload. Patient was given IV Lasix to remove the fluid. Local manager bilingual is planning a Mitral Valve Clip and want him to have the clip done sooner ratherthan later. Patient is wanting to discuss with Dr. Carrillo before he makes a decision. I advised the daughter, that I would schedule Mr. Roth to see one of our SPECIAL SERVICE REPRESENTATIVE's post discharge, butwould also let Dr. Carrillo know that he would like to speak with him regarding the MVR. Daughter understood, and stated that she would get [place] records and images sent to us. documented in this encounterEast Liverpool City Hospital03-11-[address]. [facility]S sent to [facility]03-11-2024 Note Physical Therapy Cancellation note for Saturday11/25/23 pm Pt has been discharged from the hospital to return home , no therapy services needed . Attempted time : 15:05-15:06Un[facility]03-11-2024 Note [facility]03-10-[facility]03-10-2024 NoteSocial worker advised patient needs [facility]. Referral sent. Awaiting accepting. [facility] accepted. AVS updated and sent to [facility]. No further OTM needs at this time.[facility]03-10-2024 [facility]03-[facility]-2024 [facility] 11-23-2023 [facility]03-[facility]-2024 Note[facility]03-09-2024 [facility] 11-22-2023 [facility]03-08-2024 [facility]03-08-2024 [facility] 11-22-2023 [facility]03-07-2024 Note[facility]03-07-2024 [facility] 11-21-2023 [facility]03-06-2024 Note[facility]03-06-2024 [facility] 11-20-2023 NoteS[facility]03-06-2024 NoteS[facility]03-06-2024 [facility] 11-20-2023 NoteS[facility]03-06-2024 NoteS[facility]03-06-2024 [facility] 11-19-2023 NoteS[facility]03-04-2024 NoteS[facility]02-14-2024 NoteHNO ID: [id number] Author: VIRGIL CARRILLO MD Service: ? Author Type: Physician Type: Progress Notes Filed: 10/30/2023 09:23 Note Text: [facility] Department of Cardiovascular Medicine SECTION OF CARDIOVASCULAR IMAGING OUTPATIENT VISIT DATE October 30, 2023 OUTPATIENT VISIT TYPE ESTABLISHED PRIMARY CARE PHYSICIAN: Francisca Thompson [address] [place] [phone] REFERRING PHYSICIAN: Tiarra Lopez [address] [place] [address] CHIEF COMPLAINT: Follow up HISTORY OF PRESENT ILLNESS: Mr. Roth is a 83 year old male who presents today for follow-up visit. Previously followed up by Dr. Andreas Del Cid. Past medical history includes but is not limited to: Ischemic cardiomyopathy LVEF approximately 20% Secondary mitral regurgitation Coronary artery disease, s/p CABG x 3 (OTTO to LAD, SVG to PDA, SVG to OM) in 2005, last coronary angiography in 2021 showed patent OTTO to LAD and SVG to OM, and occluded SVG to PDA Ventricular tachycardia, ICD Peripheral artery disease Ischemic stroke, tPA August 2021, prescribed Eliquis, subsequently staged CKD stage IIIb Hypertension Recent admission for a couple days in September with increasing congestion mainly in his abdomen requiring intravenous diuresis. This seems to have been triggered after stopping procedure because of concern of his kidney disease Stable weight 177 pounds. Controls what he eats and drinks carefully. Now has NYHA II bordering III symptoms. Able to walk from the car park to the clinic today slowly but without stopping. 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 ([facility]) 09/03/2022 Dyslipidemia GERD (gastroesophageal reflux disease) Heart failure, acute systolic ([facility]) Hypertension Hypothyroid Myocardial infarct, old Occlusion and stenosis of carotid artery without mention of cerebral infarction Prostate cancer ([facility]) 2020 PVD (peripheral vascular disease) ([facility]) 11/17/2012 Stroke (cerebrum) ([facility]) 09/03/2022 Systolic heart failure ([facility]) Thyroid disorder 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 kidney disease, unspecified CKD stage, unspecified whether care home insulin use ([facility]) 04/26/2023 Ventricular tachycardia ([facility]) 04/28/2012 PAST SURGICAL HISTORY [...] Pipe Quit date: 04/28/1982 Years since quittin.5 Passive exposure: Never Smokeless tobacco: Never Vaping Use Vaping Use: Never used Substance Use Topics Alcohol use: Yes Comment: rarely Drug use: Never FAMILY HISTORY Problem Relation Age of Onset other (atrial fibrillation) Mother other (CHF) Mother other (Other) Mother at age 96 Coronary Artery Disease Father Heart Attack Father fatal CT at age 77 Ischemic Heart Disease Brother CABGx6 first at age 72 No Known Problems Maternal Grandmother No Known Problems Maternal Grandfather No Known Problems Paternal Grandmother No Known Problems Paternal Grandfather No Known Problems Daughter No Known Problems Daughter No Known Problems Daughter other (Other) Other paternal cousin at age [address] ALLERGIES: ALLERGIES Allergen Reactions Latex Rash Adhesive Tape (Keyanna* Rash MEDICATIONS: furosemide (LASIX) 40 mg tablet Take 40 mg by mouth once daily. Cholecalciferol, Vitamin D3, 25 mcg (1,000 unit) cap Take 1,000 Units by mouth as needed. nitroglycerin sublingual (NITROQUICK) 0.4 mg SL tablet as directed. SPECIAL SERVICE REPRESENTATIVE 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 aspirin, enteric coated (ASPIRIN, ENTERIC COATED) 81 mg EC tablet Take 1 tablet by mouth once daily. ezetimibe (ZETIA) 10 mg tablet Take 10 mg by mouth once daily. metoprolol succinate ER (TOPROL XL) 25 mg 24 hr tablet Take 1 tablet by mouth once daily. ubidecarenone Q-10 (COENZYME Q-10) 10 mg cap Take 10 mg by mouth once daily. thyroid, pork, 60 mg tablet Take 75 mg by mouth once daily. atorvastatin (LIPITOR) 40 mg tablet Take 40 mg by mouth daily at bedtime. PHYSICAL EXAMINATION: BP 108/62 Pulse 72 Resp 12 Ht 182.9 cm (6') Wt 80.3 kg (177 lb) SpO2 98% BMI 24.01 kg/m? General: Well appearing, (more content not included)...[facility] History of Present illness Narrative* Virgil Carrillo MD - 10/30/2023 9:00 AM EST Images from the original note were not included. [facility] Department of Cardiovascular Medicine SECTION OF CARDIOVASCULAR IMAGING OUTPATIENT VISIT DATE October 30, 2023 OUTPATIENT VISIT TYPE ESTABLISHED PRIMARY CARE PHYSICIAN: Francisca Thompson [address] [place] [phone] REFERRING PHYSICIAN: Tiarra Lopez [address] [place] [id number] CHIEF COMPLAINT: Follow up HISTORY OF PRESENT ILLNESS: Mr. Roth is a 83 year old male who presents today for follow-up visit. Previously followed up by Dr. Andreas Del Cid. Past medical history includes but is not limited to: Ischemic cardiomyopathy LVEF approximately 20% Secondary mitral regurgitation Coronary artery disease, s/p CABG x 3 (OTTO to LAD, SVG to PDA, SVG to OM) in 2005, last coronary angiography in 2021 showed patent OTTO to LAD and SVG to OM, and occluded SVG to PDA Ventricular tachycardia, ICD Peripheral artery disease Ischemic stroke, tPA August 2021, prescribed Eliquis, subsequently staged CKD stage IIIb Hypertension Recent admission for a couple days in September with increasing congestion mainly in his abdomen requiring intravenous diuresis. This seems to have been triggered after stopping procedure because of concern of his kidney disease Stable weight 177 pounds. Controls what he eats and drinks carefully. Now has NYHA II bordering III symptoms. Able to walk from the car park to the clinic today slowly but without stopping. 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 ([facility]) 09/03/2022 Dyslipidemia GERD (gastroesophageal reflux disease) Heart failure, acute systolic ([facility]) Hypertension Hypothyroid Myocardial infarct, old Occlusion and stenosis of carotid artery without mention of cerebral infarction Prostate cancer ([facility]) 2020 PVD (peripheral vascular disease) ([facility]) 11/17/2012 Stroke (cerebrum) ([facility]) 09/03/2022 Systolic heart failure ([facility]) Thyroid disorder 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 kidney disease, unspecified CKD stage, unspecified whether superintendent container terminal insulin use ([facility]) 04/26/2023 Ventricular tachycardia ([facility]) 04/28/2012 PAST SURGICAL HISTORY [...] Pipe Quit date: 04/28/1982 Years since quittin.5 Passive exposure: Never Smokeless tobacco: Never Vaping Use Vaping Use: Never used Substance Use Topics Alcohol use: Yes Comment: rarely Drug use: Never FAMILY HISTORY Problem Relation Age of Onset other (atrial fibrillation) Mother other (CHF) Mother other (Other) Mother at age 96 Coronary Artery Disease Father Heart Attack Father fatal CT at age 77 Ischemic Heart Disease Brother CABGx6 first at age 72 No Known Problems Maternal Grandmother No Known Problems Maternal Grandfather No Known Problems Paternal Grandmother No Known Problems Paternal Grandfather No Known Problems Daughter No Known Problems Daughter No Known Problems Daughter other (Other) Other paternal cousin at age [address] ALLERGIES: ALLERGIES Allergen Reactions Latex Rash Adhesive Tape (Keyanna* Rash MEDICATIONS: furosemide (LASIX) 40 mg tablet Take 40 mg by mouth once daily. Cholecalciferol, Vitamin D3, 25 mcg (1,000 unit) cap Take 1,000 Units by mouth as needed. nitroglycerin sublingual (NITROQUICK) 0.4 mg SL tablet as directed. SPECIAL SERVICE REPRESENTATIVE 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 aspirin, enteric coated (ASPIRIN, ENTERIC COATED) 81 mg EC tablet Take 1 tablet by mouth once daily. ezetimibe (ZETIA) 10 mg tablet Take 10 mg by mouth once daily. metoprolol succinate ER (TOPROL XL) 25 mg 24 hr tablet Take 1 tablet by mouth once daily. ubidecarenone Q-10 (COENZYME Q-10) 10 mg cap Take 10 mg by mouth once daily. thyroid, pork, 60 mg tablet Take 75 mg by mouth once daily. atorvastatin (LIPITOR) 40 mg tablet Take 40 mg by mouth daily at bedtime. PHYSICAL EXAMINATION: BP 108/62 Pulse 72 Resp 12 Ht 182.9 cm (6') Wt 80.3 kg (177 lb) SpO2 98% BMI 24.01 kg/m General: Well appearing, in no acute distress. Skin: No clubbing, no cyanosis. Eyes: Extra ocular movements intact Oropharynx: Teeth in good repair. Neck: No jugular venous distention, no carotid bruits, carotids have a normal upstroke, no palpablethyromegaly. Lungs: Clear to auscultation bilaterally, no wheezing or rhonchi. Heart: Regular rhythm, PMI not displaced, S1, S2 normal, no S3, no S4, no heaves, no rub and 3 out of 6 holosystolic murmur loudest in the apex Abdomen: Soft, nontender, bowel sounds normal, no palpable organomegaly, no bruits. Extremities: No peripheral edema . Neuro: Oriented to person, place and time, alert, cooperative, CARDIOVASCULAR MEDICINE TESTING: I have personally reviewed the Electrocardiogram and Echocardiogram. Last ECHO Result Conclusion ECHO Collected: 04/26/2023 1:20 PM (Final result) Impression: CONCLUSIONS: - Exam indication: Evaluation of known [...] motion likely related to ischemic heart disease. - Estimated right ventricular systolic pressure is not reported due to an insufficient tricuspid regurgitation signal. Estimated right atrial pressure is 3 mmHg based on IVC assessment. - Exam was compared with the prior CC echocardiographic exam performed on 06/06/2022. Similar findings. * * * Final * * * Last EKG Result Conclusion ECG COMPLETE Collected: 10/29/2023 11:01 AM (Preliminary result) Impression: SINUS RHYTHM WITH 1ST DEGREE AV BLOCK WITH FREQUENT PREMATURE VENTRICULAR COMPLEXES MINIMAL VOLTAGE CRITERIA FOR LVH, MAY BE NORMAL VARIANT ( Leander product ) AGE UNDETERMINED ABNORMAL ECG IMPRESSION: Mr. Roth is a 83 year old male here for follow-up. Previously seen by Dr. Del Cid. First time seeing me. Past medical history includes but is not limited to: Ischemic cardiomyopathy LVEF approximately 20% Secondary mitral regurgitation Coronary artery disease, s/p CABG x 3 (OTTO to LAD, SVG to PDA, SVG to OM) in 2005, last coronary angiography in 2021 showed patent OTTO to LAD and SVG to OM, and occluded SVG to PDA Ventricular tachycardia, ICD Peripheral artery disease Ischemic stroke, tPA August 2021, prescribed Eliquis, subsequently staged CKD stage IIIb Hypertension He was with his daughter today. His recent admission appears to have been triggered by stopping Farxiga due to concerns of kidney dysfunction. At present, his weight is stable, he has NYHA II bordering III symptoms and denies any chest pain orthopnea, PND, lower limb or any dizziness. Able to walk from the car park to the clinic today slowly but without stopping. He is careful with what he eats and drinks. Complaining of very poor sleep but not due to dyspnea. There have been relatively recent deaths in his immediate family in the last number of years may be contributing to his psychological wellbeing. I encouraged him to see a psychologist. Well compensated on examination at this time. EKG sinus rhythm, PVCs, intraventricular conduction delay QRS about 120 ms. I reviewed his prior echo, none was scheduled today. Reportedly stable echo findings last month in the outside hospital. Last GFR 32 mL/min per 1.73 cm2. Lisinopril has also being held recently because of concern of his CKD PLAN AND RECOMMENDATIONS: Recommend maintenance Lasix once a day Continue metoprolol XL 25 mg a day Benefits of an SGL 2 inhibitor have been shown in patients with an eGFR ?20 mL/minute/1.73 m2, N Engl J Med. 2020;383(15):9184-6178. This should be considered if his repeat GFR is stable. He is getting 1 locally on and will reach out to me with the results Follow-up here in 3 months with an echo to review the degree of MR and consider further management options. I am also recommending that he establish care with our heart failure team here at [facility] CONTACT INFORMATION: Virgil Carrillo MD, PhD, [facility] Staff, Section of Cardiovascular Imaging Department of Cardiovascular Medicine Heart [facility] documented in this encounterEast [facility]02-12[facility] NoteO ID: [id number] Author: Yung KIM MD Service: ? Author Type: Physician Type: Progress Notes Filed: 10/01/2023 10:58 Note Text: AMBULATORY TELEPHONE VISIT José Miguel Larry Roth Jr. 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 and repeat biopsy showing Midway 7 (3+4) adenocarcinoma. Overall doing well without evidence of recurrence. PSA remains undetectable. Has been off Lupron over about 2 years, recommend continued PSA surveillance. Total Time Spent: 6 minutes Yung Kim, [facility]01-14-2024 [facility]2024 NoteHNO ID: [id number] Author: NOTE, INTERFACE, ? Service: ? Author Type: ? Type: Progress Notes Filed: 09/28/2023 02:16 Note Text: Epic Scheduled Downtime: 09/28/2023 1:00:00 AM to 09/28/2023 2:04:[address] [facility]12-12-2023 Miscellaneous Notes* Telephone Encounter - Carina Sue - 08/27/2023 11:21 AM EST Left a message with the patient regarding the cancellation of 10/22/2023 with . Informed the patient of the new scheduled appointment on 10/29/2023 with . documented in this encounterEast [facility] Hospital12-07-2023 Miscellaneous Notes* Telephone Encounter - Brenden Pollard - 08/22/2023 12:48 PM EST Call from pharmacy requesting refill. Requested Prescriptions Pending Prescriptions Disp Refills lisinopril (ZESTRIL) 5 mg tablet 90 tablet 3 Sig: Take 1 tablet by mouth once daily. Patient last seen 06-12-23 - Seen Alison Pollard documented in this encounterEast [facility] City Hospital09-27-2023 NoteHNO ID: [id number] Author: Alison Weller APRN.DOROTHY Service: ? Author Type: Nurse Practitioner Type: Progress Notes Filed: 06/12/2023 9:01 AM Note Text: Heart, Vascular AND Thoracic [facility] Department of Cardiovascular Medicine VIRTUAL VIDEO VISIT ESTABLISHED OUTPATIENT VISIT SERVICE DATE: 06/12/2023 Patient: José Miguel Roth JrTitus SERVICE TIME: 6:08 AM : 1940 This is a virtual video visit. It required patient-provider interaction for the medical decision making as documented below. José Miguel Roth . has consented to this video encounter. I have communicated my name and active licensure. The patient's identity and physical location were verified at the time of this visit. Either the patient or their legal technical support representative has been informed of the risks [...] systolic and diastolic congestive heart failure ([facility]) 09/03/2022 Dyslipidemia GERD (gastroesophageal reflux disease) Heart failure, acute systolic ([facility]) Hypertension Hypothyroid Myocardial infarct, old Occlusion and stenosis of carotid artery without mention of cerebral infarction Prostate cancer ([facility]) 2020 PVD (peripheral vascular disease) ([facility]) 11/17/2012 Stroke (cerebrum) ([facility]) 09/03/2022 Systolic heart failure ([facility]) Thyroid disorder 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 kidney disease, unspecified CKD stage, unspecified whether care home insulin use ([facility]) 04/26/2023 Ventricular tachycardia ([facility]) 04/28/2012 PAST SURGICAL HISTORY [...] Artery Disease Father Heart Attack Father fatal CT at age 77 Ischemic Heart Disease Brother CABGx6 first at age 72 No Known Problems Maternal Grandmother No Known Problems Maternal Grandfather No Known Problems Paternal Grandmother No Known Problems Paternal Grandfather No Known Problems Daughter No Known Problems Daughter No Known Problems Daughter other (Other) Other paternal cousin at age [address] Social History Tobacco Use Smoking status: Former [...] (NITROQUICK) 0.4 mg SL tabletas directed.Disp: Rfl: SPECIAL SERVICE REPRESENTATIVE 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 [facility]08-11-2023 NoteHNO ID: [id number] Author: Andreas Del Cid MD Service: ? Author Type: Physician Type: Progress Notes Filed: 04/27/2023 12:57 PM Note Text: Heart and V[facility] Department of Cardiovascular Medicine SECTION OF CARDIOVASCULAR IMAGING OUTPATIENT VISIT DATE April 26, 2023 OUTPATIENT VISIT TYPE ESTABLISHED PRIMARY CARE PHYSICIAN: Francisca Thompson [address] [place] [address] REFERRING PHYSICIAN: Francisca Thompson [address] [facility] [address] CHIEF COMPLAINT: Follow up HISTORY OF PRESENT [...] systolic and diastolic congestive heart failure ([facility]) 09/03/2022 Dyslipidemia GERD (gastroesophageal reflux disease) Heart failure, acute systolic ([facility]) Hypertension Hypothyroid Myocardial infarct, old Occlusion and stenosis of carotid artery without mention of cerebral infarction Prostate cancer ([facility]) 2020 PVD (peripheral vascular disease) ([facility]) 11/17/2012 Stroke (cerebrum) ([facility]) 09/03/2022 Systolic heart failure ([facility]) Thyroid disorder 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 kidney disease, unspecified CKD stage, unspecified whether care home insulin use ([facility]) 04/26/2023 Ventricular tachycardia ([facility]) 04/28/2012 PAST SURGICAL HISTORY [...] Artery Disease Father Heart Attack Father fatal CT at age 77 other (atrial fibrillation) Mother other (CHF) Mother other (Other) Mother at age 96 Ischemic Heart Disease Brother CABGx6 first at age 72 No Known Problems Daughter No Known Problems Daughter No Known Problems Daughter other (Other) Other paternal cousin at age [address] ALLERGIES: ALLERGIES Allergen Reactions Latex Rash Adhesive [...] Shortness of breath, Wheezing, (more content not included)...[facility]08-11-2023 History of Present illness Narrative* Andreas Del Cid MD - 04/26/2023 7:01 AM EDT Images from the original note were not included. [facility] Department of Cardiovascular Medicine SECTION OF CARDIOVASCULAR IMAGING OUTPATIENT VISIT DATE April 26, 2023 OUTPATIENT VISIT TYPE ESTABLISHED PRIMARY CARE PHYSICIAN: Francisca Thompson [address] [place] [address] REFERRING PHYSICIAN: Francisca Hubbard[address] [facility] [address] CHIEF COMPLAINT: Follow up HISTORY OF PRESENT [...] due to the fact that he is highrisk. He denies chest pain, shortness of breath, orthopnea, cough, edema, palpitations, PND, lightheadedness or syncope. 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) 09/03/2022 Dyslipidemia GERD (gastroesophageal reflux disease) Heart failure, acute systolic ([facility]) Hypertension Hypothyroid Myocardial infarct, old Occlusion and stenosis of carotid artery without mention of cerebral infarction Prostate cancer ([facility]) 2020 PVD (peripheral vascular disease) ([facility]) 11/17/2012 Stroke (cerebrum) ([facility]) 09/03/2022 Systolic heart failure ([facility]) Thyroid disorder 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 kidney disease, unspecified CKD stage, unspecified whether care home insulin use ([facility]) 04/26/2023 Ventricular tachycardia ([facility]) 04/28/2012 PAST SURGICAL HISTORY [...] Artery Disease Father Heart Attack Father fatal CT at age 77 other (atrial fibrillation) Mother other (CHF) Mother other (Other) Mother at age 96 Ischemic Heart Disease Brother CABGx6 first at age 72 No Known Problems Daughter No Known Problems Daughter No Known Problems Daughter other (Other) Other paternal cousin at age [address] ALLERGIES: ALLERGIES Allergen Reactions Latex Rash Adhesive [...] Negative for: Weakness, Paralysis, Numbness, Tingling, Tremor, Nervousness,Depressed mood, Memory loss SKIN: Negative for: Rashes, Itching HEMATOLOGICAL/LYMPHATIC: Negative for: Easy bruising , Easy bleeding ENDOCRINE: Negative for: Heat or cold intolerance, Excessive sweating, Frequent urination, Frequentthirst PHYSICAL EXAMINATION: BP 116/62 Pulse 73 Resp 12 Ht 182.9 cm (6') Wt 83.9 kg (185 lb) SpO2 98% BMI 25.09 kg/m General: Well appearing, in no acute distress. Skin: No clubbing, no cyanosis. Eyes: Extra ocular movements intact Oropharynx: Teeth in good repair. Neck: No jugular venous distention, no carotid bruits, carotids have a normal upstroke, no palpablethyromegaly. Lungs: Clear to auscultation bilaterally, no wheezing or rhonchi. Heart: Regular rhythm, PMI not displaced, S1, S2 normal, no S3, no S4, no heaves, no rub and 2 to 3x 6 holosystolic murmur at the apex. Abdomen: [...] ABNORMAL ECG Confirmed by MD VIET, HEBA ([id number]) on 06/26/2022 4:47:04 PM IMPRESSION AND PLAN: [...] He is currently doing reasonably well on low- dose MARGARETTE inhibitor, beta-jasbir, and [id number], as well as low-dose torsemide. As previously noted, he has not tolerated sacubitril/valsartan or spironolactone. He was previously in phase 2 cardiac rehabilitation, but this was stopped when he had a minor stroke, and I think it would be good for him to reinitiate this. Follow-up in 6 months. CONTACT INFORMATION: Andreas Del Cid MD 12:56 PM April 27, 2023 documented in this encounterEast [facility]07-18-2023 NoteHNO ID: [id number] Author: Yung Kim MD Service: ? Author Type: Physician Type: Progress Notes Filed: 04/05/2023 9:52 AM Note Text: Radiation Oncology - Follow Up Note PATIENT NAME: José Miguel Roth Jr. PATIENT DIAGNOSIS: Trying to get him a note from overview couple days rather do the PET scan for less a significantly Met second prostate adenocarcinoma, initial PSA 8, biopsy Midway score 3 + 4 = 7 (grade group 2), clinical stage T1c, N0, M0, stage IIB [T1-T2, N0, M0, PSA <20, GG 2] (AJCC 8th ed.), s/p TRUS Random biopsy, Patient elected observation and was found to have progression, PSA 08/2021 36.2. and repeat biopsy showing Midway 7 (3+4) adenocarcinoma. RADIATION SUMMARY: DATES OF [...] who recently had to be admitted to long-term due to feels safe. PSA HISTORY: PSA [...] Yung Kim MD cc: Francisca Thompson MD [address] [place] [address] [facility] Miscellaneous Notes* Telephone Encounter - Darlene Martinez - 11/29/2022 9:11 AM EDT Mr. Roth decided not to move forward with surgery at this time and would like to cancel. Darlene Rajput Employee Relations Director documented in this encounterEast [facility] Hospital03-16-2023 History of Present illness Narrative* John Jefferson MD - 11/29/2022 12:00 AM EDT NAME: IRA SORTO JOSÉ MIGUEL [facility] NO: [id number] DATE OF SERVICE: 11/29/2022 DATE OF : 1940 He let us know he has changed his mind about proceeding with his carotid surgery. We will wait to see what he says about moving ahead and when he wants to reschedule. John Jefferson M.D. SPL/089 Audio #: [id number] Date Dictated: 11/29/2022 14:25:32 Date Typed: 11/30/2022 09:05:53 Date Revised: documented in this encounterEast [facility] City Hospital02-15-2023 Miscellaneous Notes* Telephone Encounter - Lidia Mccloud - 10/31/2022 11:58 AM EST Called patient José Miguel to clarify surgery date and advise pre scheduled date requested, asked if I could look up his brothers surgery information, advised I could not my apologizes,to also check as he has EKG/Echo scheduled with Cardiac scheduled day after surgery ..Tfifany Clifton documented in this encounterEast Liverpool City Hospital02-10-2023 History of Present illness Narrative* Andreas Del Cid MD - 10/26/2022 11:38 AM EST Images from the original note were not included. Heart [facility] V[facility] Department of Cardiovascular Medicine SECTION OF CARDIOVASCULAR IMAGING OUTPATIENT VISIT DATE October 26, 2022 OUTPATIENT VISIT TYPE ESTABLISHED PRIMARY CARE PHYSICIAN: Francisca Thompson MD [address] [place] [address] REFERRING PHYSICIAN: Andreas Del Cid [address] [facility] [id number] CHIEF COMPLAINT: Follow up HISTORY OF PRESENT [...] He is active around the house without symptomsbut is not exercising much as he is [...] mention of cerebral infarction Prostate cancer ([facility]) 2020 PVD (peripheral vascular disease) ([facility]) 11/17/2012 Stroke (cerebrum) ([facility]) 09/03/2022 Systolic heart failure ([facility]) Thyroid disorder Ventricular tachycardia [...] Artery Disease Father Heart Attack Father fatal CT at age 77 other (atrial fibrillation) Mother other (CHF) Mother other (Other) Mother at age 96 Ischemic Heart Disease Brother CABGx6 first at age 72 No Known Problems Daughter No Known Problems Daughter No Known Problems Daughter other (Other) Other paternal cousin at age [address] ALLERGIES: ALLERGIES Allergen Reactions Latex Rash Adhesive [...] Negative for: Weakness, Paralysis, Numbness, Tingling, Tremor, Nervousness,Depressed mood, Memory loss SKIN: Negative for: Rashes, Itching HEMATOLOGICAL/LYMPHATIC: Negative for: Easy bruising , Easy bleeding ENDOCRINE: Negative for: Heat or cold intolerance, Excessive sweating, Frequent urination, Frequentthirst PHYSICAL EXAMINATION: BP 116/66 Pulse 74 Ht 182.9 cm (6') Wt 83.9 kg (185 lb) SpO2 98% BMI 25.09 kg/m General: Well appearing, in no acute distress. Skin: No clubbing, no cyanosis. Eyes: Extra ocular movements intact Oropharynx: Teeth in good repair. Neck: No jugular venous distention, no carotid bruits, carotids have a normal upstroke, no palpablethyromegaly. Lungs: Clear to auscultation bilaterally, no wheezing [...] FOR LVH, MAY BE NORMAL VARIANT ( Leander product ) NONSPECIFIC T WAVE ABNORMALITY ABNORMAL ECG Confirmed by MD VIET, HEBA ([id number]) on 06/26/2022 4:47:04 PM IMPRESSION AND PLAN: Mr. Roth is a 82 year old male c a h/o CAD and prior CABG and MR who presents for F/U and adelina-operative risk stratification prior to carotid surgery. He [...] I would put his risk of a adelina-operative cardiac event at 1-5%. My main concern [...] AM November 02, 2022 documented in this encounterEast [facility]02-09-2023 Instructions* Patient Instructions* Andreas Del Cid MD - 10/25/2022 4:11 PM EST OK for surgery. Do not take your lisinopril the day before and the day of surgery. Continue your other medications. Check blood work today. Return in 6 months with an echocardiogram. documented in this encounterEast [facility] Hospital02-09-2023 History of Present illness Narrative* Josselin Claros RN - 10/25/2022 1:45 PM EST RADIOLOGY SERVICE PROGRESS NOTE SERVICE DATE: 10/25/2022 SERVICE TIME: 1:46 PM PATIENT IDENTITY VERIFICATION COMPLETED USING TWO (2) STANDARD IDENTIFIERS: Name and Date of confirmed by patient verbally and Name and Date of confirmed by identification band PATIENT GENDER DATA: male ALLERGIES: Reviewed and unchanged MEDICATIONS REVIEWED BY: Cage Tender and Josselin Claros RN PROCEDURE TYPE: SD PET Myocardial Imagin.4 mg of Regadenoson was administered at 1359 over 10 Seconds. Reversal agent used: None. and NM PET Myocardial Action Taken: POCT Blood Glucose 101 mg/dL at 1339 (QC = OK).9.2 mCi FDG-18 IV at 1416. POCT Blood Glucose 98 mg/dL at 1415 (QC = OK). Expiration date: 16JUN2025 Lot#: [id number] IV SITE: Ambulatory: A peripheral IV was [...] information regarding radiation safety can be found usingthis link: [email or web address] SIGNATURE: Josselin Claros RN PATIENT NAME: José Miguel Roth Jr. DATE: October 25, 2022 TIME: 1:46 PM PAGER/CONTACT #: * Luigi [employer]ai[employer] - 10/25/2022 1:45 PM EST RADIOLOGY SERVICE PROGRESS NOTE SERVICE DATE: 10/25/2022 [...] creatinine assay has traceable calibration to isotope dilution- mass spectrometry. Refer to KDIGO guidelines for clinical interpretation. In patients with unstable renal function, e.g. those with acute kidney injury, the eGFRmay not accurately reflect actual GFR. eGFR- Date [...] 1416 PATIENT DISCHARGED TO: Ambulatory patient, left NM department area. A Diagnostic radioactive procedure has taken place, with no further precautions necessary other than routine body substance precautions. More information regarding radiation safety can be found usingthis link: [email or web address] SIGNATURE: Luigi Desai [employer] PATIENT NAME: José Miguel Roth Jr. DATE: October 25, 2022 TIME: 1:32 PM PAGER/CONTACT #: documented in this encounterEast Liverpool City Hospital01-17-2023 Nurse Note* Kathie Pavon RN - 10/02/2022 1:14 PM EST AUA 1.5 Kathie Pavon RN documented in this encounterEast [facility]01-17-[facility]23 History of Present illness Narrative* G Denilson Kim MD - 10/02/2022 1:09 PM EST Radiation Oncology - Follow Up Note PATIENT NAME: José Miguel Roth Jr. PATIENT DIAGNOSIS: Trying to get him a note from overview couple days rather do the PET scan for less a significantly Met second prostate adenocarcinoma, initial PSA 8, biopsy Midway score 3 + 4 = 7 (grade [...] ongoing grief issues. Patient states that he isgetting good support with his family. Encouraged him to call should he have questions regarding this. Signed by: Yung Kim MD cc: Francisca Thompson MD [address] [place] [address] documented in this encounterEast [facility] Hospital12-27-2022 Miscellaneous Notes* Telephone Encounter - Allyn Michael - 09/11/2022 9:34 AM EST 09/11 Spoke with patient he said that he was not aware that he needed a pet scan, He would like to speak with Dr. Del Cid about the test. He also said that he will have his daughter call to make the appt. * Telephone Encounter - Aisha Benavides RN - 09/07/2022 12:46 PM EST Preliminary Approval for Scheduling Purposes ONLY Are Cardiac PET orders Present: Yes Do the order comments specify a Protocol or Instruction? No LVEF: LV Ejection Fraction (%) Date Value 06/06/2022 20 Test Approved: Yes, N/A PET Perfusion Rest & Stress w/ Viability (0109, 0102) Additional Comments: Chronic systolic heart failure (HCC) [I50.22] Coronary artery disease involving [place] coronary artery of [place] heart without angina pectoris [I25.10] Test Approved by: Aisha Benavides RN If additional orders are required route to ordering physician and to P PET MACHINE [employer] with recommendations. If all recommended orders are present route to P PET MACHINE [facility] * Telephone Encounter - Darlene Moore - 09/07/2022 12:36 PM EST This form is used for MAIN CAMPUS APPOINTMENTS ONLY. Is this request for a Main [place] PET scan appointment? Yes: Risk Adjustment Specialist: Darlene LUNA Requesting Person (Andreas Del Cid): [phone] Area Code + Phone/Pager: Who do we [...] day/next day medically urgent scans please call [phone] to expedite LVEF: LV Ejection Fraction (%) Date Value 06/06/2022 20 LVEF Free text: Yes, see above. Additional comments: N/A Send requests to P CARDIAC PET MD NERI documented in this encounterEast [facility] City Hospital12-19-2022 History of Present illness Narrative* John Jefferson MD - 09/03/2022 11:15 AM EST Images from the original note were not included. DATE: 07/01/2012 AGE: 72 SURGEON 1: John Jefferson M.D. OPERATION: Right carotid endarterectomy with bovine patch angioplasty. Heart , Vascular [facility] Thor[facility] DEPARTMENT OF VASCULAR SURGERY OUTPATIENT VISIT DATE September 03, 2022 OUTPATIENT VISIT TYPE CONSULTATION SERVICE DATE: 09/03/2022 SERVICE TIME: 11:53 AM PRIMARY CARE PHYSICIAN: Francisca Thompson MD, MD REFERRING PROVIDER: Francisca Thompson MD [facility] [address] Consult requested for an opinion regarding the evaluation and treatment of the above. My final impression and recommendations will be communicated back to the requesting physician by way of the shared medical record or letter via US mail. CHIEF COMPLAINT: Carotid stenosis HISTORY OF PRESENT ILLNESS: Vascular consultation at the request of Dr. Francisca Thompson. A copy of this consultation note will beprovided to the requesting physician by way of [...] Of note, he was recently hospitalized in [place] on April for not feeling well. He has been grieving since his has passed in December. 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 without mention of cerebral infarction Prostate cancer ([facility] 2020 PVD (peripheral vascular disease) ([facility]) 11/17/2012 Thyroid disorder Ventricular [...] Artery Disease Father Heart Attack Father fatal CT at age 77 other (atrial fibrillation) Mother other (CHF) Mother other (Other) Mother at age 96 Ischemic Heart Disease Brother CABGx6 first at age 72 No Known Problems Daughter No Known Problems Daughter No Known Problems Daughter other (Other) Other paternal cousin at age [address] MEDICATIONS: therapeutic multivitamin w/ iron (THERAGRAN-M) 27-0.4 [...] reviewed for today's visit: HUSSEIN Jefferson MD ([id number]) paged with results. Compared to prior study [...] flow noted. Abnormal signal suggests pre-steal. IMPRESSION: [facility] STAFF PHYSICIAN NOTE OF PERSONAL INVOLVEMENT IN [...] 2022 TIME: 2:20 PM documented in this encounterEast [facility] Hospital11-16-2022 Miscellaneous Notes* Telephone Encounter - Ayana Jauregui - 08/01/2022 4:10 PM EST Mr Roth's daughter called and she would like to schedule an appointment with pt advised to do so due to Carotid stenosis seen Dr jefferson in 2011 regarding right side now its the left side having issues Contact Name (If not the pt): stan Box Home and cell number: [phone] Diagnosis: Carotid stenosis Kind Regards Ayana Jauregui documented in this encounterEast [facility] Hospital11-14-2022 Miscellaneous Notes* Telephone Encounter - Mary Gross - 07/30/2022 3:11 PM EST Reason for call: Mr Roth called,and he would like to schedule an appointment with Contact Name (If not the pt): Charu daughter Home and cell number: [phone] Diagnosis: Mitral valve insufficiency, unspecified etiology Kind Regards Mary documented in this encounterEast [facility] Hospital11-09-2022 Miscellaneous Notes* Telephone Encounter - Jesusita Crandall - 07/25/2022 3:04 PM EST Images have been pushed through into [facility]. Daughter would like you to call her to go over things as this was all completed after he saw you inoffice. She can be reached at [phone] Her name is Charu documented in this encounterEast [facility] City Hospital09-21-2022 History of Present illness Narrative* Andreas Del Cid MD - 06/06/2022 3:28 PM EDT Heart and Vascular [facility] Department of Cardiovascular Medicine SECTION OF CARDIOVASCULAR IMAGING OUTPATIENT VISIT DATE June 06, 2022 OUTPATIENT VISIT TYPE ESTABLISHED PRIMARY CARE PHYSICIAN: Francisca Thompson MD [address] [place], [place] [id number] CHIEF COMPLAINT: Follow up HISTORY OF PRESENT [...] Since then, he has been very depressed andnot eating. He is accompanied today by 2 [...] mention of cerebral infarction Prostate cancer ([facility]) 2020 PVD (peripheral vascular disease) ([facility]) 11/17/2012 Thyroid disorder Ventricular tachycardia ([facility]) 04/28/2012 PAST SURGICAL HISTORY [...] Artery Disease Father Heart Attack Father fatal CT at age 77 other (atrial fibrillation) Mother other (CHF) Mother other (Other) Mother at age 96 Ischemic Heart Disease Brother CABGx6 first at age 72 No Known Problems Daughter No Known Problems Daughter No Known Problems Daughter other (Other) Other paternal cousin at age [address] ALLERGIES: ALLERGIES Allergen Reactions Latex Rash Adhesive [...] Negative for: Weakness, Paralysis, Numbness, Tingling, Tremor, Nervousness,Depressed mood, Memory loss SKIN: Negative for: Rashes, Itching HEMATOLOGICAL/LYMPHATIC: Negative for: Easy bruising , Easy bleeding ENDOCRINE: Negative for: Heat or cold intolerance, Excessive sweating, Frequent urination, Frequentthirst PHYSICAL EXAMINATION: BP 101/63 (BP Site: Left [...] bruits, carotids have a normal upstroke, no palpablethyromegaly. Lungs: Clear to auscultation bilaterally, no wheezing or rhonchi. Heart: Regular rhythm, PMI not displaced, S1, S2 normal, no S3, no S4, no heaves, no rub and iii/viapical holosystolic murmur. Abdomen: Soft, nontender, bowel sounds [...] any questions regarding this interpretation, please call [phone]. If you are unable to reach us at the number above, please feel free to contact [facility] at [phone]. IMPRESSION: Mr. Roth is a 82 year [...] PM June 06, 2022 documented in this encounterEast [facility] City Hospital08-11-2022 History of Present illness Narrative* G Denilson Kim MD - 04/26/2022 8:02 AM EDT AMBULATORY TELEPHONE VISIT José Miguel Roth Jr. has consented to this telephone encounter. 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 Staff Physician Denilson Kim M.D. / WST 22:25 PM documented in this encounterEast [facility] Hospital04-04-2022 History of Present illness Narrative* Yung Kim MD - 12/18/2021 12:00 AM EDT [facility] Oncology Department RADIATION ONCOLOGY - COMPLETION NOTE [...] . Staff Physician Denilson Kim M.D. / WST 21:22 PM documented in this encounterEast [facility] Hospital03-28-2022 History of Present illness Narrative* Yung Kim MD - 12/11/2021 8:44 AM EDT Radiation Oncology - On Treatment Review (OTR) [...] discussed. Yung Kim MD documented in this encounterEast [facility]01-24-2018 History of Past illness Narrative* Problem Noted Date Diagnosed Date Resolved Date Prostate cancer 10/09/2017 10/01/2023 Stress hyperglycemia 05/01/2012 012 Overview: Diet has [...] 56, Troponin T .37 on admission to [facility] Wide-complex tachycardia 04/28/2012 Overview: Presented to OSH 04/28/[address] with wide complex tachycardia SVT versus VT. Given adenosine x2 without effect, diltiazem bolus and infusion with no effect. Spontaneous conversion to NSR. Had short run of wide complex tachy[facility] Pre[facility]op evaluation 04/28/2012 05/01/2012 Overview: Preoperative evaluation for CABG. Not ReDo -Carotids: Ordered -Vein Mapping: Ordered -Bedside PFTs: Ordered -Formal TTE: Ordered -CXR: Completed documented as of this encounter (statuses as of 10/30/2023) [facility]01-24-[facility] History of Past illness Narrative* Problem Noted Date Diagnosed Date Resolved Date Prostate cancer 10/09/2017 10/01/2023 Stress hyperglycemia 05/01/2012 012 Overview: Diet has [...] 56, Troponin T .37 on admission to [facility] Wide-complex tachycardia 04/28/2012 Overview: Presented to OSH 04/28/[address] with wide complex tachycardia SVT versus VT. Given adenosine x2 without effect, diltiazem bolus and infusion with no effect. Spontaneous conversion to NSR. Had short run of wide complex tachycardia upon arrival to [facility] from [facility]. Pre-op evaluation 04/28/2012 05/01/2012 Overview: Preoperative evaluation for CABG. Not ReDo -Carotids: Ordered -Vein Mapping: Ordered -Bedside PFTs: Ordered -Formal TTE: Ordered -CXR: Completed documented as of this encounter (statuses as of 11/27/2023) [facility] History of Past illness Narrative* Problem Noted Date Diagnosed Date Resolved Date Prostate cancer 10/09/2017 10/01/2023 Stress hyperglycemia 05/01/2012 012 Overview: Diet has [...] 56, Troponin T .37 on admission to [facility] Wide-complex tachycardia 04/28/2012 Overview: Presented to OSH 04/28/[address] with wide complex tachycardia SVT versus VT. Given adenosine x2 without effect, diltiazem bolus and infusion with no effect. Spontaneous conversion to NSR. Had short run of wide complex tachycardia upon arrival to [facility] from [facility]. Pre-op evaluation 04/28/2012 05/01/2012 Overview: Preoperative evaluation for CABG. Not ReDo -Carotids: Ordered -Vein Mapping: Ordered -Bedside PFTs: Ordered -Formal TTE: Ordered -CXR: Completed documented as of this encounter (statuses as of 11/27/2023) [facility] of Past illness Narrative* Problem Noted Date Diagnosed Date Resolved Date Prostate cancer 10/09/2017 10/01/2023 Stress hyperglycemia 05/01/2012 012 Overview: Diet has [...] 56, Troponin T .37 on admission to [facility] Wide-complex tachycardia 04/28/2012 Overview: Presented to OSH 04/28/[address] with wide complex tachycardia SVT versus VT. Given adenosine x2 without effect, diltiazem bolus and infusion with no effect. Spontaneous conversion to NSR. Had short run of wide complex tachycardia upon arrival to [facility] from [facility]. Pre-op evaluation 04/28/2012 05/01/2012 Overview: Preoperative evaluation for CABG. Not ReDo -Carotids: Ordered -Vein Mapping: Ordered -Bedside PFTs: Ordered -Formal TTE: Ordered -CXR: Completed documented as of this encounter (statuses as of 12/04/2023) [facility] of Past illness Narrative* Problem Noted Date Diagnosed Date Resolved Date Prostate cancer 10/09/2017 10/01/2023 Stress hyperglycemia 05/01/2012 012 Overview: Diet has [...] 56, Troponin T .37 on admission to [facility] Wide-complex tachycardia 04/28/2012 Overview: Presented to OSH 04/28/[address] with wide complex tachycardia SVT versus VT. Given adenosine x2 without effect, diltiazem bolus and infusion with no effect. Spontaneous conversion to NSR. Had short run of wide complex tachycardia upon [facility] Pre-op evaluation 04/28/2012 05/01/2012 Overview: Preoperative evaluation for CABG. Not ReDo -Carotids: Ordered -Vein Mapping: Ordered -Bedside PFTs: Ordered -Formal TTE: Ordered -CXR: Completed documented as of this encounter (statuses as of 12/20/2023) [facility] of Past illness Narrative* Problem Noted Date Diagnosed Date Resolved Date Prostate cancer 10/09/2017 10/01/2023 Stress hyperglycemia 05/01/2012 012 Overview: Diet has [...] 56, Troponin T .37 on admission to [facility] Wide-complex tachycardia 04/28/2012 Overview: Presented to OSH 04/28/[address] with wide complex tachycardia SVT versus VT. Given adenosine x2 without effect, diltiazem bolus and infusion with no effect. Spontaneous conversion to NSR. Had short run of wide complex tachycardia upon [facility] Pre-op evaluation 04/28/2012 05/01/2012 Overview: Preoperative evaluation for CABG. Not ReDo -Carotids: Ordered -Vein Mapping: Ordered -Bedside PFTs: Ordered -Formal TTE: Ordered -CXR: Completed documented as of this encounter (statuses as of 12/23/2023) [facility] of [facility] illness Narrative* Problem Noted Date Diagnosed Date Resolved Date Prostate cancer 10/09/2017 10/01/2023 Stress hyperglycemia 05/01/2012 012 Overview: Diet has [...] 56, Troponin T .37 on admission to [facility] Wide-complex tachycardia 04/28/2012 Overview: Presented to OSH 04/28/[address] with wide complex tachycardia SVT versus VT. Given adenosine x2 without effect, diltiazem bolus and infusion with no effect. Spontaneous conversion to NSR. Had short run of wide complex tachycardia upon [facility] Pre-op evaluation 04/28/2012 05/01/2012 Overview: Preoperative evaluation for CABG. Not ReDo -Carotids: Ordered -Vein Mapping: Ordered -Bedside PFTs: Ordered -Formal TTE: Ordered -CXR: Completed documented as of this encounter (statuses as of 12/24/2023) [facility] of [facility] illness Narrative* Problem Noted Date Diagnosed Date Resolved Date Prostate cancer 10/09/2017 10/01/2023 Stress hyperglycemia 05/01/2012 012 Overview: Diet has [...] 56, Troponin T .37 on admission to [facility] Wide-complex tachycardia 04/28/2012 Overview: Presented to OSH 04/28/[address] with wide complex tachycardia SVT versus VT. Given adenosine x2 without effect, diltiazem bolus and infusion with no effect. Spontaneous conversion to NSR. Had short run of wide complex tachycardia upon arrival to [facility] from [facility]. Pre-op evaluation 04/28/2012 05/01/2012 Overview: Preoperative evaluation for CABG. Not ReDo -Carotids: Ordered -Vein Mapping: Ordered -Bedside PFTs: Ordered -Formal TTE: Ordered -CXR: Completed documented as of this encounter (statuses as of 12/27/2023) [facility] of [facility] illness Narrative* Problem Noted Date Diagnosed Date Resolved Date Prostate cancer 10/09/2017 10/01/2023 Stress hyperglycemia 05/01/2012 012 Overview: Diet has [...] 56, Troponin T .37 on admission to [facility] Wide-complex tachycardia 04/28/2012 Overview: Presented to OSH 04/28/[address] with wide complex tachycardia SVT versus VT. Given adenosine x2 without effect, diltiazem bolus and infusion with no effect. Spontaneous conversion to NSR. Had short run of wide complex tachycardia upon arrival to [facility] from [facility]. Pre-op evaluation 04/28/2012 05/01/2012 Overview: Preoperative evaluation for CABG. Not ReDo -Carotids: Ordered -Vein Mapping: Ordered -Bedside PFTs: Ordered -Formal TTE: Ordered -CXR: Completed documented as of this encounter (statuses as of 12/27/2023) [facility] of [facility] illness Narrative* Problem Noted Date Diagnosed Date Resolved Date Prostate cancer 10/09/2017 10/01/2023 Stress hyperglycemia 05/01/2012 012 Overview: Diet has [...] 56, Troponin T .37 on admission to [facility] Wide-complex tachycardia 04/28/2012 Overview: Presented to OSH 04/28/[address] with wide complex tachycardia SVT versus VT. Given adenosine x2 without effect, diltiazem bolus and infusion with no effect. Spontaneous conversion to NSR. Had short run of wide complex tachycardia upon arrival to [facility] from [facility]. Pre-op evaluation 04/28/2012 05/01/2012 Overview: Preoperative evaluation for CABG. Not ReDo -Carotids: Ordered -Vein Mapping: Ordered -Bedside PFTs: Ordered -Formal TTE: Ordered -CXR: Completed documented as of this encounter (statuses as of 12/31/2023) [facility] of [facility] illness Narrative* Problem Noted Date Diagnosed Date Resolved Date Prostate cancer 10/09/2017 10/01/2023 Stress hyperglycemia 05/01/2012 012 Overview: Diet has [...] 56, Troponin T .37 on admission to [facility] Wide-complex tachycardia 04/28/2012 Overview: Presented to OSH 04/28/[address] with wide complex tachycardia SVT versus VT. Given adenosine x2 without effect, diltiazem bolus and infusion with no effect. Spontaneous conversion to NSR. Had short run of wide complex tachycardia upon arrival to [facility] from [facility]. Pre-op evaluation 04/28/2012 05/01/2012 Overview: Preoperative evaluation for CABG. Not ReDo -Carotids: Ordered -Vein Mapping: Ordered -Bedside PFTs: Ordered -Formal TTE: Ordered -CXR: Completed documented as of this encounter (statuses as of 01/02/2024) [facility] of [facility] illness Narrative* Problem Noted Date Diagnosed Date Resolved Date Prostate cancer 10/09/2017 10/01/2023 Stress hyperglycemia 05/01/2012 012 Overview: Diet has [...] 56, Troponin T .37 on admission to [facility] Wide-complex tachycardia 04/28/2012 Overview: Presented to OSH 04/28/[address] with wide complex tachycardia SVT versus VT. Given adenosine x2 without effect, diltiazem bolus and infusion with no effect. Spontaneous conversion to NSR. Had short run of wide complex tachycardia upon [facility] Pre-op evaluation 04/28/2012 05/01/2012 Overview: Preoperative evaluation for CABG. Not ReDo -Carotids: Ordered -Vein Mapping: Ordered -Bedside PFTs: Ordered -Formal TTE: Ordered -CXR: Completed documented as of this encounter (statuses as of 01/03/2024) [facility] of [facility] illness Narrative* Problem [...] 56, Troponin T .37 on admission to [facility] Wide-complex tachycardia 04/28/2012 012 Overview: Presented to OSH 04/28/[address] with wide complex tachycardia SVT versus VT. Given adenosine x2 without effect, diltiazem bolus and infusion with no effect. Spontaneous conversion to NSR. Had short run of wide complex tachycardia upon arrival to [facility] from [facility]. Pre-op evaluation 04/28/2012 05/01/2012 Overview: Preoperative evaluation for CABG. Not ReDo -Carotids: Ordered -Vein Mapping: Ordered -Bedside PFTs: Ordered -Formal TTE: Ordered -CXR: Completed documented as of this encounter (statuses as of 12/18/2021) [facility] of [facility] illness Narrative* Problem [...] 56, Troponin T .37 on admission to [facility] Wide-complex tachycardia 04/28/2012 012 Overview: Presented to OSH 04/28/[address] with wide complex tachycardia SVT versus VT. Given adenosine x2 without effect, diltiazem bolus and infusion with no effect. Spontaneous conversion to NSR. Had short run of wide complex tachycardia upon arrival to [facility] from [facility]. Pre-op evaluation 04/28/2012 05/01/2012 Overview: Preoperative evaluation for CABG. Not ReDo -Carotids: Ordered -Vein Mapping: Ordered -Bedside PFTs: Ordered -Formal TTE: Ordered -CXR: Completed documented as of this encounter (statuses as of 12/21/2021) [facility] of Past illness Narrative* Problem [...] 56, Troponin T .37 on admission to [facility] Wide-complex tachycardia 04/28/2012 012 Overview: Presented to OSH 04/28/[address] with wide complex tachycardia SVT versus VT. Given adenosine x2 without effect, diltiazem bolus and infusion with no effect. Spontaneous conversion to NSR. Had short run of wide complex tachycardia upon arrival to [facility] from [facility]. Pre-op evaluation 04/28/2012 05/01/2012 Overview: Preoperative evaluation for CABG. Not ReDo -Carotids: Ordered -Vein Mapping: Ordered -Bedside PFTs: Ordered -Formal TTE: Ordered -CXR: Completed documented as of this encounter (statuses as of 01/15/2022) [facility] of [facility] illness Narrative* Problem [...] 56, Troponin T .37 on admission to [facility] Wide-complex tachycardia 04/28/2012 012 Overview: Presented to OSH 04/28/[address] with wide complex tachycardia SVT versus VT. Given adenosine x2 without effect, diltiazem bolus and infusion with no effect. Spontaneous conversion to NSR. Had short run of wide complex tachycardia upon arrival to [facility] from [facility]. Pre-op evaluation 04/28/2012 05/01/2012 Overview: Preoperative evaluation for CABG. Not ReDo -Carotids: Ordered -Vein Mapping: Ordered -Bedside PFTs: Ordered -Formal TTE: Ordered -CXR: Completed documented as of this encounter (statuses as of 01/18/2022) [facility] of Past illness Narrative* Problem [...] 56, Troponin T .37 on admission to [facility] Wide-complex tachycardia 04/28/2012 08/ 012 Overview: Presented to OSH 04/28/[address] with wide complex tachycardia SVT versus VT. Given adenosine x2 without effect, diltiazem bolus and infusion with no effect. Spontaneous conversion to NSR. Had short run of wide complex tachycardia [facility] Pre-op evaluation 04/28/2012 05/01/2012 Overview: Preoperative evaluation for CABG. Not ReDo -Carotids: Ordered -Vein Mapping: Ordered -Bedside PFTs: Ordered -Formal TTE: Ordered -CXR: Completed documented as of this encounter (statuses as of 02/06/2022) [facility]08-16-2012 History of Past illness Narrative* Problem [...] 56, Troponin T .37 on admission to [facility] Wide-complex tachycardia 04/28/2012 012 Overview: Presented to OSH 04/28/[address] with wide complex tachycardia SVT versus VT. Given adenosine x2 without effect, diltiazem bolus and infusion with no effect. Spontaneous conversion to NSR. Had short run of wide complex tachycardia [facility] Pre-op evaluation 04/28/2012 05/01/2012 Overview: Preoperative evaluation for CABG. Not ReDo -Carotids: Ordered -Vein Mapping: Ordered -Bedside PFTs: Ordered -Formal TTE: Ordered -CXR: Completed documented as of this encounter (statuses as of 04/26/2022) [facility]08-16-2012 History of Past illness Narrative* Problem [...] 56, Troponin T .37 on admission to [facility] Wide-complex tachycardia 04/28/2012 012 Overview: Presented to OSH 04/28/[address] with wide complex tachycardia SVT versus VT. Given adenosine x2 without effect, diltiazem bolus and infusion with no effect. Spontaneous conversion to NSR. Had short run of wide complex tachycardia upon arrival to [facility] from [facility]. Pre-op evaluation 04/28/2012 05/01/2012 Overview: Preoperative evaluation for CABG. Not ReDo -Carotids: Ordered -Vein Mapping: Ordered -Bedside PFTs: Ordered -Formal TTE: Ordered -CXR: Completed documented as of this encounter (statuses as of 05/08/2022) [facility]08-[facility]-2012 History of Past illness Narrative* Problem [...] 56, Troponin T .37 on admission to [facility] Wide-complex tachycardia 04/28/2012 012 Overview: Presented to OSH 04/28/[address] with wide complex tachycardia SVT versus VT. Given adenosine x2 without effect, diltiazem bolus and infusion with no effect. Spontaneous conversion to NSR. Had short run of wide complex tachycardia upon arrival to [facility] from [facility]. Pre-op evaluation 04/28/2012 05/01/2012 Overview: Preoperative evaluation for CABG. Not ReDo -Carotids: Ordered -Vein Mapping: Ordered -Bedside PFTs: Ordered -Formal TTE: Ordered -CXR: Completed documented as of this encounter (statuses as of 06/06/2022) [facility]08-[facility]-2012 History of Past illness Narrative* Problem [...] 56, Troponin T .37 on admission to [facility] Wide-complex tachycardia 04/28/2012 012 Overview: Presented to OSH 04/28/[address] with wide complex tachycardia SVT versus VT. Given adenosine x2 without effect, diltiazem bolus and infusion with no effect. Spontaneous conversion to NSR. Had short run of wide complex tachycardia upon arrival to [facility] from [facility]. Pre-op evaluation 04/28/2012 05/01/2012 Overview: Preoperative evaluation for CABG. Not ReDo -Carotids: Ordered -Vein Mapping: Ordered -Bedside PFTs: Ordered -Formal TTE: Ordered -CXR: Completed documented as of this encounter (statuses as of 06/06/2022) [facility]08-[facility]-2012 History of Past illness Narrative* Problem [...] 56, Troponin T .37 on admission to [facility] Wide-complex tachycardia 04/28/2012 012 Overview: Presented to OSH 04/28/[address] with wide complex tachycardia SVT versus VT. Given adenosine x2 without effect, diltiazem bolus and infusion with no effect. Spontaneous conversion to NSR. Had short run of wide complex tachycardia upon [facility] Pre-op evaluation 04/28/2012 05/01/2012 Overview: Preoperative evaluation for CABG. Not ReDo -Carotids: Ordered -Vein Mapping: Ordered -Bedside PFTs: Ordered -Formal TTE: Ordered -CXR: Completed documented as of this encounter (statuses as of 07/31/2022) [facility]08-[facility]-2012 History of Past illness Narrative* Problem [...] 56, Troponin T .37 on admission to [facility] Wide-complex tachycardia 04/28/2012 012 Overview: Presented to OSH 04/28/[address] with wide complex tachycardia SVT versus VT. Given adenosine x2 without effect, diltiazem bolus and infusion with no effect. Spontaneous conversion to NSR. Had short run of wide complex tachycardia upon arrival to [facility] from [facility]. Pre-op evaluation 04/28/2012 05/01/2012 Overview: Preoperative evaluation for CABG. Not ReDo -Carotids: Ordered -Vein Mapping: Ordered -Bedside PFTs: Ordered -Formal TTE: Ordered -CXR: Completed documented as of this encounter (statuses as of 08/01/2022) [facility]08-[facility]-2012 History of Past illness Narrative* Problem [...] 56, Troponin T .37 on admission to [facility] Wide-complex tachycardia 04/28/2012 012 Overview: Presented to OSH 04/28/[address] with wide complex tachycardia SVT versus VT. Given adenosine x2 without effect, diltiazem bolus and infusion with no effect. Spontaneous conversion to NSR. Had short run of wide complex tachycardia [facility] Pre-op evaluation 04/28/2012 05/01/2012 Overview: Preoperative evaluation for CABG. Not ReDo -Carotids: Ordered -Vein Mapping: Ordered -Bedside PFTs: Ordered -Formal TTE: Ordered -CXR: Completed documented as of this encounter (statuses as of 08/03/2022) [facility]08-[facility]-2012 History of Past illness Narrative* Problem [...] 56, Troponin T .37 on admission to [facility] Wide-complex tachycardia 04/28/2012 012 Overview: Presented to OSH 04/28/[address] with wide complex tachycardia SVT versus VT. Given adenosine x2 without effect, diltiazem bolus and infusion with no effect. Spontaneous conversion to NSR. Had short run of wide complex tachycardia upon arrival to [facility] from [facility]. Pre-op evaluation 04/28/2012 05/01/2012 Overview: Preoperative evaluation for CABG. Not ReDo -Carotids: Ordered -Vein Mapping: Ordered -Bedside PFTs: Ordered -Formal TTE: Ordered -CXR: Completed documented as of this encounter (statuses as of 08/07/2022) [facility]08-[facility]-2012 History of Past illness Narrative* Problem [...] 56, Troponin T .37 on admission to [facility] Wide-complex tachycardia 04/28/2012 012 Overview: Presented to OSH 04/28/[address] with wide complex tachycardia SVT versus VT. Given adenosine x2 without effect, diltiazem bolus and infusion with no effect. Spontaneous conversion to NSR. Had short run of wide complex tachycardia upon arrival to [facility] Pre-op evaluation 04/28/2012 05/01/2012 Overview: Preoperative evaluation for CABG. Not ReDo -Carotids: Ordered -Vein Mapping: Ordered -Bedside PFTs: Ordered -Formal TTE: Ordered -CXR: Completed documented as of this encounter (statuses as of 08/17/2022) [facility]08-16-2012 History of Past illness Narrative* Problem [...] 56, Troponin T .37 on admission to [facility] Wide-complex tachycardia 04/28/2012 012 Overview: Presented to OSH 04/28/[address] with wide complex tachycardia SVT versus VT. Given adenosine x2 without effect, diltiazem bolus and infusion with no effect. Spontaneous conversion to NSR. Had short run of wide complex tachycardia upon arrival to [facility] Pre-op evaluation 04/28/2012 05/01/2012 Overview: Preoperative evaluation for CABG. Not ReDo -Carotids: Ordered -Vein Mapping: Ordered -Bedside PFTs: Ordered -Formal TTE: Ordered -CXR: Completed documented as of this encounter (statuses as of 09/03/2022) [facility]08-[facility]-2012 History of Past illness Narrative* Problem [...] 56, Troponin T .37 on admission to [facility] Wide-complex tachycardia 04/28/2012 012 Overview: Presented to OSH 04/28/[address] with wide complex tachycardia SVT versus VT. Given adenosine x2 without effect, diltiazem bolus and infusion with no effect. Spontaneous conversion to NSR. Had short run of wide complex tachycardia upon arrival to [facility] from [facility]. Pre-op evaluation 04/28/2012 05/01/2012 Overview: Preoperative evaluation for CABG. Not ReDo -Carotids: Ordered -Vein Mapping: Ordered -Bedside PFTs: Ordered -Formal TTE: Ordered -CXR: Completed documented as of this encounter (statuses as of 09/07/2022) [facility]08-[facility]-2012 History of Past illness Narrative* Problem [...] 56, Troponin T .37 on admission to [facility] Wide-complex tachycardia 04/28/2012 012 Overview: Presented to OSH 04/28/[address] with wide complex tachycardia SVT versus VT. Given adenosine x2 without effect, diltiazem bolus and infusion with no effect. Spontaneous conversion to NSR. Had short run of wide complex tachycardia upon arrival to [facility] from [facility]. Pre-op evaluation 04/28/2012 05/01/2012 Overview: Preoperative evaluation for CABG. Not ReDo -Carotids: Ordered -Vein Mapping: Ordered -Bedside PFTs: Ordered -Formal TTE: Ordered -CXR: Completed documented as of this encounter (statuses as of 10/08/2022) [facility]08-[facility]-2012 History of Past illness Narrative* Problem [...] 56, Troponin T .37 on admission to [facility] Wide-complex tachycardia 04/28/2012 012 Overview: Presented to OSH 04/28/[address] with wide complex tachycardia SVT versus VT. Given adenosine x2 without effect, diltiazem bolus and infusion with no effect. Spontaneous conversion to NSR. Had short run of wide complex tachycardia upon arrival to [facility] from [facility]. Pre-op evaluation 04/28/2012 05/01/2012 Overview: Preoperative evaluation for CABG. Not ReDo -Carotids: Ordered -Vein Mapping: Ordered -Bedside PFTs: Ordered -Formal TTE: Ordered -CXR: Completed documented as of this encounter (statuses as of 10/26/2022) [facility]08-[facility]-2012 History of Past illness Narrative* Problem [...] 56, Troponin T .37 on admission to [facility] Wide-complex tachycardia 04/28/2012 012 Overview: Presented to OSH 04/28/[address] with wide complex tachycardia SVT versus VT. Given adenosine x2 without effect, diltiazem bolus and infusion with no effect. Spontaneous conversion to NSR. Had short run of wide complex tachycardia upon arrival [facility] Pre-op evaluation 04/28/2012 05/01/2012 Overview: Preoperative evaluation for CABG. Not ReDo -Carotids: Ordered -Vein Mapping: Ordered -Bedside PFTs: Ordered -Formal TTE: Ordered -CXR: Completed documented as of this encounter (statuses as of 10/26/2022) [facility]08-16-2012 History of Past illness Narrative* Problem [...] 56, Troponin T .37 on admission to [facility] Wide-complex tachycardia 04/28/2012 012 Overview: Presented to OSH 04/28/[address] with wide complex tachycardia SVT versus VT. Given adenosine x2 without effect, diltiazem bolus and infusion with no effect. Spontaneous conversion to NSR. Had short run of wide complex tachycardia upon arrival to [facility] from [facility]. Pre-op evaluation 04/28/2012 05/01/2012 Overview: Preoperative evaluation for CABG. Not ReDo -Carotids: Ordered -Vein Mapping: Ordered -Bedside PFTs: Ordered -Formal TTE: Ordered -CXR: Completed documented as of this encounter (statuses as of 10/31/2022) [facility]08-[facility]-2012 History of Past illness Narrative* Problem [...] 56, Troponin T .37 on admission to [facility] Wide-complex tachycardia 04/28/2012 012 Overview: Presented to OSH 04/28/[address] with wide complex tachycardia SVT versus VT. Given adenosine x2 without effect, diltiazem bolus and infusion with no effect. Spontaneous conversion to NSR. Had short run of wide complex tachycardia upon arrival to [facility] from [facility]. Pre-op evaluation 04/28/2012 05/01/2012 Overview: Preoperative evaluation for CABG. Not ReDo -Carotids: Ordered -Vein Mapping: Ordered -Bedside PFTs: Ordered -Formal TTE: Ordered -CXR: Completed documented as of this encounter (statuses as of 11/02/2022) [facility]08-[facility]-2012 History of Past illness Narrative* Problem [...] 56, Troponin T .37 on admission to [facility] Wide-complex tachycardia 04/28/2012 012 Overview: Presented to OSH 04/28/[address] with wide complex tachycardia SVT versus VT. Given adenosine x2 without effect, diltiazem bolus and infusion with no effect. Spontaneous conversion to NSR. Had short run of wide complex tachycardia upon arrival to [facility] from [facility]. Pre-op evaluation 04/28/2012 05/01/2012 Overview: Preoperative evaluation for CABG. Not ReDo -Carotids: Ordered -Vein Mapping: Ordered -Bedside PFTs: Ordered -Formal TTE: Ordered -CXR: Completed documented as of this encounter (statuses as of 11/07/2022) [facility]08-[facility]-2012 History of Past illness Narrative* Problem [...] 56, Troponin T .37 on admission to [facility] Wide-complex tachycardia 04/28/2012 012 Overview: Presented to OSH 04/28/[address] with wide complex tachycardia SVT versus VT. Given adenosine x2 without effect, diltiazem bolus and infusion with no effect. Spontaneous conversion to NSR. Had short run of wide complex tachycardia upon arrival to [facility] from [facility]. Pre-op evaluation 04/28/2012 05/01/2012 Overview: Preoperative evaluation for CABG. Not ReDo -Carotids: Ordered -Vein Mapping: Ordered -Bedside PFTs: Ordered -Formal TTE: Ordered -CXR: Completed documented as of this encounter (statuses as of 11/29/2022) [facility]08-[facility]-2012 History of Past illness Narrative* Problem [...] 56, Troponin T .37 on admission to [facility] Wide-complex tachycardia 04/28/2012 012 Overview: Presented to OSH 04/28/[address] with wide complex tachycardia SVT versus VT. Given adenosine x2 without effect, diltiazem bolus and infusion with no effect. Spontaneous conversion to NSR. Had short run of wide complex tachycardia upon arrival to [facility] from [facility]. Pre-op evaluation 04/28/2012 05/01/2012 Overview: Preoperative evaluation for CABG. Not ReDo -Carotids: Ordered -Vein Mapping: Ordered -Bedside PFTs: Ordered -Formal TTE: Ordered -CXR: Completed documented as of this encounter (statuses as of 11/30/2022) [facility]08-[facility] History of Past illness Narrative* Problem [...] 56, Troponin T .37 on admission to [facility] Wide-complex tachycardia 04/28/2012 012 Overview: Presented to OSH 04/28/[address] with wide complex tachycardia SVT versus VT. Given adenosine x2 without effect, diltiazem bolus and infusion with no effect. Spontaneous conversion to NSR. Had short run of wide complex tachycardia upon arrival to [facility] from [facility]. Pre-op evaluation 04/28/2012 05/01/2012 Overview: Preoperative evaluation for CABG. Not ReDo -Carotids: Ordered -Vein Mapping: Ordered -Bedside PFTs: Ordered -Formal TTE: Ordered -CXR: Completed documented as of this encounter (statuses as of 12/03/2022) [facility]08-[facility] History of Past illness Narrative* Problem [...] 56, Troponin T .37 on admission to [facility] Wide-complex tachycardia 04/28/2012 012 Overview: Presented to OSH 04/28/[address] with wide complex tachycardia SVT versus VT. Given adenosine x2 without effect, diltiazem bolus and infusion with no effect. Spontaneous conversion to NSR. Had short run of wide complex tachycardia upon arrival to [facility] from [facility]. Pre-op evaluation 04/28/2012 05/01/2012 Overview: Preoperative evaluation for CABG. Not ReDo -Carotids: Ordered -Vein Mapping: Ordered -Bedside PFTs: Ordered -Formal TTE: Ordered -CXR: Completed documented as of this encounter (statuses as of 02/21/2023) [facility] History of Past illness Narrative* Problem [...] 56, Troponin T .37 on admission to [facility] Wide-complex tachycardia 04/28/2012 Overview: Presented to OSH 04/28/[address] with wide complex tachycardia SVT versus VT. Given adenosine x2 without effect, diltiazem bolus and infusion with no effect. Spontaneous conversion to NSR. Had short run of wide complex tachycardia upon arrival to [facility] from [facility]. Pre-op evaluation 04/28/2012 05/01/2012 Overview: Preoperative evaluation for CABG. Not ReDo -Carotids: Ordered -Vein Mapping: Ordered -Bedside PFTs: Ordered -Formal TTE: Ordered -CXR: Completed documented as of this encounter (statuses as of 04/27/2023) [facility] History of Past illness Narrative* Problem [...] 56, Troponin T .37 on admission to [facility] Wide-complex tachycardia 04/28/2012 Overview: Presented to OSH 04/28/[address] with wide complex tachycardia SVT versus VT. Given adenosine x2 without effect, diltiazem bolus and infusion with no effect. Spontaneous conversion to NSR. Had short run of wide complex tachycardia upon arrival to [facility] from [facility]. Pre-op evaluation 04/28/2012 05/01/2012 Overview: Preoperative evaluation for CABG. Not ReDo -Carotids: Ordered -Vein Mapping: Ordered -Bedside PFTs: Ordered -Formal TTE: Ordered -CXR: Completed documented as of this encounter (statuses as of 05/09/2023) [facility] History of Past illness Narrative* Problem [...] 56, Troponin T .37 on admission to [facility] Wide-complex tachycardia 04/28/2012 Overview: Presented to OSH 04/28/[address] with wide complex tachycardia SVT versus VT. Given adenosine x2 without effect, diltiazem bolus and infusion with no effect. Spontaneous conversion to NSR. Had short run of wide complex tachycardia upon arrival to [facility] from [facility]. Pre-op evaluation 04/28/2012 05/01/2012 Overview: Preoperative evaluation for CABG. Not ReDo -Carotids: Ordered -Vein Mapping: Ordered -Bedside PFTs: Ordered -Formal TTE: Ordered -CXR: Completed documented as of this encounter (statuses as of 08/23/2023) [facility] History of Past illness Narrative* Problem [...] 56, Troponin T .37 on admission to [facility] Wide-complex tachycardia 04/28/2012 Overview: Presented to OSH 04/28/[address] with wide complex tachycardia SVT versus VT. Given adenosine x2 without effect, diltiazem bolus and infusion with no effect. Spontaneous conversion to NSR. Had short run of wide complex tachycardia [facility] Pre-op evaluation 04/28/2012 05/01/2012 Overview: Preoperative evaluation for CABG. Not ReDo -Carotids: Ordered -Vein Mapping: Ordered -Bedside PFTs: Ordered -Formal TTE: Ordered -CXR: Completed documented as of this encounter (statuses as of 08/27/2023) [facility] Malignant neoplasm of prostate (HCC)- Primary Malignant neoplasm of prostate [facility] Diagnosis Unspecified hypothyroidism- Primary Hypercholesterolemia Pure hypercholesterolemia Abnormal finding of blood chemistry, [facility] Malignant ne[facility] of prostate (HCC)- Primary Malignant neoplasm of prostate [facility] Chronic systolic heart failure (HCC)- Primary Chronic systolic heart failure [facility] Diagnosis Mitral valve insufficiency, unspecified etiology- Primary Chronic systolic heart failure (HCC) Chronic systolic heart failure [facility] Bilateral carotid artery stenosis- Primary Occlusion and stenosis of carotid artery without mention of cerebral infarction [facility] Diagnosis Coronary artery disease involving [place] coronary artery of [place] heart without angina pectoris- Primary Heart failure, [...] stenosis, asymptomatic, bilateral [facility] Diagnosis Chronic systolic heart failure (HCC)- Primary Chronic systolic heart failure Coronary artery disease involving [place] coronary artery of [place] heart without angina pectoris [facility] Diagnosis Malignant neoplasm of prostate (HCC)- Primary Malignant neoplasm of prostate [facility] Diagnosis Chronic systolic heart failure (HCC) Chronic systolic heart failure Coronary artery disease involving [place] coronary artery of [place] heart without angina pectoris [facility] Diagnosis Coronary artery disease involving [place] coronary artery of [place] heart without angina pectoris- Primary Heart failure, acute systolic (HCC) Acute systolic heart failure Preop testing Preoperative examination, unspecified Carotid stenosis, asymptomatic, bilateral Preoperative cardiovascular examination Pre-operative cardiovascular examination [facility] Diagnosis 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 kidney disease, unspecified CKD stage, unspecified whether superintendent container terminal insulin use (HCC)- Primary PVD (peripheral vascular disease) [facility] Peripheral vascular disease, unspecified Atherosclerotic heart disease of [place] coronary artery with other forms of angina pectoris ([facility]) [facility] Diagnosis Chronic 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)- Primary Chronic combined systolic and diastolic heart failure Coronary artery disease involving [place] coronary artery of [place] heart without angina pectoris Essential hypertension Unspecified essential hypertension Hx of CABG Postsurgical aortocoronary bypass status Mixed hyperlipidemia Systolic heart failure, unspecified HF chronicity (HCC) 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 kidney disease, unspecified CKD stage, unspecified whether superintendent container terminal insulin use (HCC) PVD (peripheral vascular disease) (HCC) Peripheral vascular disease, unspecified Atherosclerotic heart disease of [place]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) Mitral valve insufficiency, unspecified etiology [facility] Diagnosis Atherosclerosis of [place] coronary artery, unspecified whether angina present, unspecified whether [place] or transplanted heart- Primary [facility] Diagnosis Mitral valve insufficiency, unspecified etiology- Primary HFrEF (heart failure with reduced ejection fraction) (HCC) Heart failure, unspecified SOB (shortness of breath) Shortness of breath Hx of CABG Postsurgical aortocoronary bypass status Coronary artery disease involving [place] [place] coronary artery of [place] heart without angina pectoris Essential hypertension Unspecified essential hypertension [facility] Diagnosis Severe mitral regurgitation- Primary Mitral valve disorders Cardiomyopathy, ischemic Other specified forms of chronic ischemic heart disease S/P CABG (coronary artery bypass graft) Postsurgical aortocoronary bypass status Sore throat Acute pharyngitis Unspecified severe protein-calorie malnutrition (HCC) [facility] Diagnosis IRB [id number] [facility] Assessment of the CARILLON Mitral Contour System in Treating Functional Mitral Regurgitation Associated with Heart Failure PI: Hussein- Primary documented [facility] this encounter [facility]* Diagnosis Study name: EMPOWER Trial IRB# [id number] Primary [facility]* Diagnosis Atherosclerotic heart disease of [place]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)- Primary 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) Chronic systolic heart failure (HCC) Chronic systolic heart failure S/P CABG (coronary artery bypass graft) 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) Chronic combined systolic and diastolic heart failure Acute on chronic clinical systolic heart failure (HCC) Stage 3b chronic kidney disease (HCC) Ischemic cardiomyopathy Other specified forms of chronic ischemic heart disease Non-ischemic cardiomyopathy (HCC) Other primary cardiomyopathies Shortness of breath Unspecified severe protein-calorie malnutrition (HCC) [facility]* Diagnosis 18- Empower Study- Primary [facility] Diagnosis EMPOWER Trial IRB# [id number] Screening visit- Primary Examination of participant in clinical trial [facility] this [facility]* Diagnosis Severe mitral regurgitation- Primary Mitral valve disorders Examination of participant in clinical trial SANTILLAN (dyspnea on exertion) Other dyspnea and respiratory abnormality documented in this encounter [facility]ructionsNot on filedocumented [facility] Outpatient Procedure (Routine) - Authorized Specialty Diagnoses / Procedures Referred By Contac t Referred To Contact [facility] Diagnoses Chronic systolic heart failure (HCC) Procedures ECHO ECHO TTHRC R-T 2D W/WOM-MODE COMPL SPEC&COLR D Andreas Del Cid MD [id number] [place] [address] Referral ID Status Reason Start Date Expiration Date Visits Requested Visits Authorized [id number] Authorized Auto-Generat ed Referral 06/06/2022 06/06/2023 1 1 * Outpatient Procedure (Routine) - Authorized Specialty Diagnoses / Procedures [facility] To Contact [facility] Diagnoses Chronic systolic heart failure (HCC) Procedures ECG COMPLETE ECG ROUTINE ECG W/LEAST 12 LDS W/I&R Andreas Del Cid MD [address] [place] [address] [address] Referral ID Status Reason Start Date Expiration Date Visits Requested Visits Authorized [id number] Authorized Auto-Generat ed Referral 06/06/2022 06/06/2023 1 1 [facility] for referral (narrative)* Outpatient Procedure (Routine) - Authorized Specialty Diagnoses / Procedures [facility] Referred To Contact [facility] Diagnoses Bilateral carotid artery stenosis Procedures US CAROTID ARTERIES DIANNE VAS LAB DUPLEX SCAN EXTRACRANIAL ART COMPL BI STUDY John Jefferson MD [address] [place] [address] [address] Referral ID Status Reason Start Date Expiration Date Visits Requested Visits Authorized [id number] Authorized Auto-Generat ed Referral 2 08/03/2023 1 1 [facility] for referral (narrative)* Diagnostic Procedure Only (Routine) - Pending Review Specialty Diagnoses / Procedures Referred By Contac t Referred To Contact [facility] Diagnoses Chronic systolic heart failure (HCC) Coronary artery disease involving [place] coronary artery of [place] heart without angina pectoris Procedures NM PET/CT CARDIAC VIABILITY MYOCRD IMG PET PRFUJ W/METAB 2RTRACER [facility] Andreas Del Cid MD [address] [place] [address] [facility] [address] [place] [address] Referral ID Status Reason Start Date Expiration Date Visits Requested Visits Authorized [id number] Pending Review Auto-Generat ed Referral 2 10/06/2023 1 1 * Diagnostic Procedure Only (Routine) - Pending Review Specialty Diagnoses / Procedures Referred By Contac t Referred To Contact [facility] Diagnoses Chronic systolic heart failure (HCC) Coronary artery disease involving [place] coronary artery of [place] heart without angina pectoris Procedures NM PET/CT CARDIAC PERF REST/STRESS MYOCRD IMG PET PRFUJ SCRATCH FINISHER STD RST & STRS [facility] Andreas Del Cid MD [address] [place] [address] [facility] [address] [place] [address] Referral ID Status Reason Start Date Expiration Date Visits Requested Visits Authorized [id number] Pending Review Auto-Generat ed Referral 2 10/06/2023 1 1 [facility] for referral (narrative)* Diagnostic Procedure Only (Routine) - Closed Specialty Diagnoses / Procedures Referred By Contac t Referred To Contact [facility] Diagnoses Chronic systolic heart failure (HCC) Coronary artery disease involving [place] coronary artery of [place] heart without angina pectoris Procedures NM PET/CT CARDIAC VIABILITY MYOCRD IMG PET PRFUJ W/METAB 2RTRACER [facility] CT Andreas Del Cid MD [address] [place] [address] [facility] [address] [place] [address] Referral ID Status Reason Start Date Expiration Date V isits Requested Visits Authorized [id number] Closed Auto-Generate d Referral 09/06/2022 10/06/2023 1 1 * Diagnostic Procedure Only (Routine) - Closed Specialty Diagnoses / Procedures Referred By Jordon rao Referred To Contact [facility] Diagnoses Chronic systolic heart failure (HCC) Coronary artery disease involving [place] coronary artery of [place] heart without angina pectoris Procedures NM PET/CT CARDIAC PERF REST/STRESS MYOCRD IMG PET PRFUJ SCRATCH FINISHER STD RST & STRS [facility] [place] [place] [address] [place] [address] Molecular [facility] Functional Imaging [address] [place] [address] Referral ID Status Reason Start Date Expiration Date V isits Requested Visits Authorized [id number] Closed Auto-Generate d Referral 09/06/2022 10/06/2023 1 1 [facility] for referral (narrative)* Outpatient Procedure (Routine) - Authorized Specialty Diagnoses / Procedures Referred By Jordon rao Referred To Contact [facility] Diagnoses Chronic 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) Procedures ECHO ECHO TTHRC R-T 2D W/WOM-MODE COMPL SPEC&[place] [address] [place] [address] [place] [address] [facility] [place] [address] Referral ID Status Reason Start Date Expiration Date Visits Requested Visits Authorized [id number] Authorized Auto-Generat ed Referral 10/30/2023 10/29/2024 1 1 * Outpatient Procedure (Routine) - Authorized Specialty Diagnoses / Procedures Referred By Contac t Referred To Contact [facility] [place] Diagnoses Chronic 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) Procedures ECG COMPLETE ECG ROUTINE ECG W/LEAST 12 LDS W/I&R Virgil Carrillo MD [address] [place] [address] [facility] [address] [place] [address] Referral ID Status Reason Start Date Expiration Date Visits Requested Visits Authorized [id number] Authorized Auto-Generat ed Referral 10/30/2023 10/29/2024 1 1 * Transition of Care (Routine) - Ref Not Required Specialty Diagnoses / Procedures Referred By Jordon t Referred To Contact Procedures CARDIOVASCULAR MEDICINE OP FOLLOW UP APPT ORDER Virgil Carrillo MD [address] [place] [address] Referral ID Status Reason Start Date Expiration Date Visits Requested Visits Authorized [id number] Ref Not Required PCP Requested Referral 01/28/2024 10/29/2024 1 1 [facility] for referral (narrative)* Outpatient Procedure (Routine) - Pending Review Specialty Diagnoses / Procedures Referred By Jordon t Referred To Contact [facility] [place] Diagnoses Atherosclerosis of [place] coronary artery, unspecified whether angina present, unspecified whether [place] or transplanted heart Procedures ECHO ECHO TTHRC R-T 2D W/WOM-MODE COMPL SPEC&COLR D Virgil Carrillo MD [address] [place] [address] [facility] [address] [place] [address] Referral ID Status Reason Start Date Expiration Date Visits Requested Visits Authorized [id number] Pending Review Auto-Generat ed Referral 11/26/2023 11/25/2024 1 1 * Outpatient Procedure (Routine) - Authorized Specialty Diagnoses / Procedures Referred By Contac t Referred To Contact [facility] [place] Diagnoses Atherosclerosis of [place] coronary artery, unspecified whether angina present, unspecified whether [place] or transplanted heart Procedures ECG COMPLETE ECG ROUTINE ECG W/LEAST 12 LDS W/I&R Virgil Carrillo MD [address] [facility] [place] [address] [id number] Referral ID Status Reason Start Date Expiration Date Visits Requested Visits Authorized [id number] Authorized Auto-Generat ed Referral 11/26/2023 11/25/2024 1 1 [facility] for referral (narrative)* Outpatient Procedure (Routine) - Pending Review Specialty Diagnoses / Procedures Referred By Contac t Referred To Contact [facility] Diagnoses HFrEF (heart failure with reduced ejection fraction) (HCC) Mitral valve insufficiency, unspecified etiology Procedures ECHO ECHO TTHRC R-T 2D W/WOM-MODE COMPL SPEC&COLR D Carmelina Carrasco APRN.CNP [address] [place] [address] [id number] Referral ID Status Reason Start Date Expiration Date Visits Requested Visits Authorized [id number] Pending Review Auto-Generat ed Referral 12/23/2023 12/22/2024 1 1 * Outpatient Procedure (Routine) - Pending Review Specialty Diagnoses / Procedures Referred By Contac t Referred To Contact [facility] Diagnoses HFrEF (heart failure with reduced ejection fraction) (HCC) Mitral valve insufficiency, unspecified etiology Procedures ECG COMPLETE ECG ROUTINE ECG W/LEAST 12 LDS W/I&R Carmelina Carrasco APRN.CNP [address] [place] [address] [address] Referral ID Status Reason Start Date Expiration Date Visits Requested Visits Authorized [id number] Pending Review Auto-Generat ed Referral 12/23/2023 12/22/2024 1 1 * Transition of Care (Routine) - Ref Not Required Specialty Diagnoses / Procedures Referred By Contac t Referred To [facility] Diagnoses Mitral valve insufficiency, unspecified etiology Procedures CARDIOVASCULAR MEDICINE OP FOLLOW UP APPT Carmelina Rockwell APRN.CNP [address] [place] [address] [address] Referral ID Status Reason Start Date Expiration Date Visits Requested Visits Authorized [id number] Ref Not Required PCP Requested Referral 03/23/2024 12/22/2024 1 1 [facility] for referral (narrative)* Outpatient Procedure (Routine) - Pending Review Specialty Diagnoses / Procedures Referred By Contac t Referred To Contact [facility] Diagnoses Severe mitral regurgitation Cardiomyopathy, ischemic S/P CABG (coronary artery bypass graft) Procedures ECHO ECHO TTHRC R-T 2D W/WOM-MODE COMPL SPEC&COLR D Efren Brady MD [address] [place] [address] [facility] [address] [place] [address] Referral ID Status Reason Start Date Expiration Date Visits Requested Visits Authorized [id number] Pending Review Auto-Generat ed Referral 12/26/2023 12/25/2024 1 1 * Outpatient Procedure (Routine) - Pending Review Specialty Diagnoses / Procedures Referred By Contac t Referred To Contact [facility] [place] Diagnoses Severe mitral regurgitation Cardiomyopathy, ischemic S/P CABG (coronary artery bypass graft) Procedures ECG COMPLETE ECG ROUTINE ECG W/LEAST 12 LDS W/I&R Efren Brady MD [address] [place] [address] [place] [address] Referral ID Status Reason Start Date Expiration Date Visits Requested Visits Authorized [id number] Pending Review Auto-Generat ed Referral 12/26/2023 12/25/2024 1 1 * Transition of Care (Routine) - Ref Not Required Specialty Diagnoses / Procedures Referred By Jordon rao Referred To Contact [facility] Procedures CARDIOVASCULAR MEDICINE [place] [address] [place] [address] [place] [address] Referral ID Status Reason Start Date Expiration Date Visits Requested Visits Authorized [id number] Ref Not Required PCP Requested Referral 03/26/2024 12/25/2024 1 1 * Consult, Test, Treat (Routine) - Authorized Specialty Diagnoses / Procedures Referred By Jordon rao Referred To Contact Ent - Otolaryngology Diagnoses Sore throat Procedures CONSULT TO ENT OFFICE/OUTPATIENT [facility] 60 [place] [address] [place] [address] Referral ID Status Reason Start Date Expiration Date Visits Requested Visits Authorized [id number] Authorized PCP Requested Referral 12/26/2023 12/25/2024 1 1 [facility] Summary Purpose Family History No Family History Records FoundNo Family History Records FoundNo Family History Records FoundNo Family History Records FoundNo Family History Records FoundNo Family History Records Found Advance Directives Documents on File Type Date 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 Advance Directive(s) 03/24/2019 7:11 AM Latest Code Status on File Code Status Date Activated Date Inactivated Comments Full Code 08/18/2021 11:48 AM 08/19/2021 7:30 PM Reason for Referral Specialty Diagnoses / Procedures Referred By Jordon rao Referred [facility] Diagnoses 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) Chronic systolic heart failure (HCC) S/P CABG (coronary artery bypass graft) Chronic 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) Acute on chronic clinical systolic heart failure (HCC) Stage 3b chronic kidney disease (HCC) Ischemic cardiomyopathy Non-ischemic cardiomyopathy (HCC) Shortness of breath Procedures CARDIOVASCULAR MEDICINE OP FOLLOW UP APPT ORDER Paulina Fernandes MD [address] [place] [address] [facility] [address] [address] [place] [address] Referral ID Status Reason Start Date Expiration Date Visits Requested Visits Authorized [id number] Ref Not Required PCP Requested Referral 01/10/2024 01/09/2025 1 1 Additional Source Comments (unrecognized sect ion and content) No Status Records FoundNo Status Records FoundNo Status Records FoundNo Status Records FoundNo Status Records FoundNo Status Records Found INFORMATION SOURCE (unrecogn ized section and content) DATE CREATED AUTHOR 07/29/2019 [facility] DATE CREATED AUTHOR AUTHOR'S ORGANIZ ATION 05/25/2022 [facility] DATE CREATED AUTHOR AUTHOR'S ORGANIZ ATION 02/22/2023 [facility] DATE CREATED AUTHOR AUTHOR'S ORGANIZ ATION 12/29/2023 [facility] DATE CREATED AUTHOR AUTHOR'S ORGANIZ ATION 02/05/2024 [facility] DATE CREATED AUTHOR AUTHOR'S ORGANIZ ATION 02/11/2024 [facility] Source Comments (unrecognize d section and content) In the event this informatio n is protected by the Federal Confidentiality of Alcohol and Drug Abuse Patient Records regulations: The Federal rules restrict any use of the information to criminally investigate or prosecute any alcohol or drug abuse patient.[facility] the event this information is protected by the Federal Confidentiality of Alcohol and Drug Abuse Patient Records regulations: The Federal rules restrict any use of the information to criminally investigate or prosecute any alcohol or drug abuse patient.[facility] the event this information is protected by the Federal Confidentiality of Alcohol and Drug Abuse Patient Records regulations: The Federal rules restrict any use of the information to criminally investigate or prosecute any alcohol or drug abuse patient.[facility]In the event this information is protected by the Federal Confidentiality of Alcohol and Drug Abuse Patient Records regulations: The Federal rules restrict any use of the information to criminally investigate or prosecute any alcohol or drug abuse patient.[facility]In the event this information is protected by the Federal Confidentiality of Alcohol and Drug Abuse Patient Records regulations: The Federal rules restrict any use of the information to criminally investigate or prosecute any alcohol or drug abuse patient.[facility] the event this information is protected by the Federal Confidentiality of Alcohol and Drug Abuse Patient Records regulations: The Federal rules restrict any use of the information to criminally investigate or prosecute any alcohol or drug abuse patient.[facility] the event this information is protected by the Federal Confidentiality of Alcohol and Drug Abuse Patient Records regulations: The Federal rules restrict any use of the information to criminally investigate or prosecute any alcohol or drug abuse patient.[facility]In the event this information is protected by the Federal Confidentiality of Alcohol and Drug Abuse Patient Records regulations: The Federal rules restrict any use of the information to criminally investigate or prosecute any alcohol or drug abuse patient.[facility] the event this information is protected by the Federal Confidentiality of Alcohol and Drug Abuse Patient Records regulations: The Federal rules restrict any use of the information to criminally investigate or prosecute any alcohol or drug abuse patient.[facility] the event this information is protected by the Federal Confidentiality of Alcohol and Drug Abuse Patient Records regulations: The Federal rules restrict any use of the information to criminally investigate or prosecute any alcohol or drug abuse patient.[facility]In the event this information is protected by the Federal Confidentiality of Alcohol and Drug Abuse Patient Records regulations: The Federal rules restrict any use of the information to criminally investigate or prosecute any alcohol or drug abuse patient.[facility]In the event this information is protected by the Federal Confidentiality of Alcohol and Drug Abuse Patient Records regulations: The Federal rules restrict any use of the information to criminally investigate or prosecute any alcohol or drug abuse patient.[facility]In the event this information is protected by the Federal Confidentiality of Alcohol and Drug Abuse Patient Records regulations: The Federal rules restrict any use of the information to criminally investigate or prosecute any alcohol or drug abuse patient.[facility]In the event this information is protected by the Federal Confidentiality of Alcohol and Drug Abuse Patient Records regulations: The Federal rules restrict any use of the information to criminally investigate or prosecute any alcohol or drug abuse patient.[facility]In the event this information is protected by the Federal Confidentiality of Alcohol and Drug Abuse Patient Records regulations: The Federal rules restrict any use of the information to criminally investigate or prosecute any alcohol or drug abuse patient.[facility] HospitalIn the event this information is protected by the Federal Confidentiality of Alcohol and Drug Abuse Patient Records regulations: The Federal rules restrict any use of the information to criminally investigate or prosecute any alcohol or drug abuse patient.[facility]In the event this information is protected by the Federal Confidentiality of Alcohol and Drug Abuse Patient Records regulations: The Federal rules restrict any use of the information to criminally investigate or prosecute any alcohol or drug abuse patient.[facility]In the event this information is protected by the Federal Confidentiality of Alcohol and Drug Abuse Patient Records regulations: The Federal rules restrict any use of the information to criminally investigate or prosecute any alcohol or drug abuse patient.[facility]In the event this information is protected by the Federal Confidentiality of Alcohol and Drug Abuse Patient Records regulations: The Federal rules restrict any use of the information to criminally investigate or prosecute any alcohol or drug abuse patient.[facility]In the event this information is protected by the Federal Confidentiality of Alcohol and Drug Abuse Patient Records regulations: The Federal rules restrict any use of the information to criminally investigate or prosecute any alcohol or drug abuse patient.[facility]In the event this information is protected by the Federal Confidentiality of Alcohol and Drug Abuse Patient Records regulations: The Federal rules restrict any use of the information to criminally investigate or prosecute any alcohol or drug abuse patient.[facility]In the event this information is protected by the Federal Confidentiality of Alcohol and Drug Abuse Patient Records regulations: The Federal rules restrict any use of the information to criminally investigate or prosecute any alcohol or drug abuse patient.[facility]In the event this information is protected by the Federal Confidentiality of Alcohol and Drug Abuse Patient Records regulations: The Federal rules restrict any use of the information to criminally investigate or prosecute any alcohol or drug abuse patient.[facility]In the event this information is protected by the Federal Confidentiality of Alcohol and Drug Abuse Patient Records regulations: The Federal rules restrict any use of the information to criminally investigate or prosecute any alcohol or drug abuse patient.[facility]In the event this information is protected by the Federal Confidentiality of Alcohol and Drug Abuse Patient Records regulations: The Federal rules restrict any use of the information to criminally investigate or prosecute any alcohol or drug abuse patient.[facility]In the event this information is protected by the Federal Confidentiality of Alcohol and Drug Abuse Patient Records regulations: The Federal rules restrict any use of the information to criminally investigate or prosecute any alcohol or drug abuse patient.[facility] HospitalIn the event this information is protected by the Federal Confidentiality of Alcohol and Drug Abuse Patient Records regulations: The Federal rules restrict any use of the information to criminally investigate or prosecute any alcohol or drug abuse patient.[facility] HospitalIn the event this information is protected by the Federal Confidentiality of Alcohol and Drug Abuse Patient Records regulations: The Federal rules restrict any use of the information to criminally investigate or prosecute any alcohol or drug abuse patient.[facility] HospitalIn the event this information is protected by the Federal Confidentiality of Alcohol and Drug Abuse Patient Records regulations: The Federal rules restrict any use of the information to criminally investigate or prosecute any alcohol or drug abuse patient.[facility] HospitalIn the event this information is protected by the Federal Confidentiality of Alcohol and Drug Abuse Patient Records regulations: The Federal rules restrict any use of the information to criminally investigate or prosecute any alcohol or drug abuse patient.[facility] HospitalIn the event this information is protected by the Federal Confidentiality of Alcohol and Drug Abuse Patient Records regulations: The Federal rules restrict any use of the information to criminally investigate or prosecute any alcohol or drug abuse patient.[facility] HospitalIn the event this information is protected by the Federal Confidentiality of Alcohol and Drug Abuse Patient Records regulations: The Federal rules restrict any use of the information to criminally investigate or prosecute any alcohol or drug abuse patient.[facility] HospitalIn the event this information is protected by the Federal Confidentiality of Alcohol and Drug Abuse Patient Records regulations: The Federal rules restrict any use of the information to criminally investigate or prosecute any alcohol or drug abuse patient.[facility] HospitalIn the event this information is protected by the Federal Confidentiality of Alcohol and Drug Abuse Patient Records regulations: The Federal rules restrict any use of the information to criminally investigate or prosecute any alcohol or drug abuse patient.[facility] HospitalIn the event this information is protected by the Federal Confidentiality of Alcohol and Drug Abuse Patient Records regulations: The Federal rules restrict any use of the information to criminally investigate or prosecute any alcohol or drug abuse patient.[facility] HospitalIn the event this information is protected by the Federal Confidentiality of Alcohol and Drug Abuse Patient Records regulations: The Federal rules restrict any use of the information to criminally investigate or prosecute any alcohol or drug abuse patient.[facility] HospitalIn the event this information is protected by the Federal Confidentiality of Alcohol and Drug Abuse Patient Records regulations: The Federal rules restrict any use of the information to criminally investigate or prosecute any alcohol or drug abuse patient.[facility] HospitalIn the event this information is protected by the Federal Confidentiality of Alcohol and Drug Abuse Patient Records regulations: The Federal rules restrict any use of the information to criminally investigate or prosecute any alcohol or drug abuse patient.[facility] HospitalIn the event this information is protected by the Federal Confidentiality of Alcohol and Drug Abuse Patient Records regulations: The Federal rules restrict any use of the information to criminally investigate or prosecute any alcohol or drug abuse patient.[facility] HospitalIn the event this information is protected by the Federal Confidentiality of Alcohol and Drug Abuse Patient Records regulations: The Federal rules restrict any use of the information to criminally investigate or prosecute any alcohol or drug abuse patient.[facility] HospitalIn the event this information is protected by the Federal Confidentiality of Alcohol and Drug Abuse Patient Records regulations: The Federal rules restrict any use of the information to criminally investigate or prosecute any alcohol or drug abuse patient.[facility] HospitalIn the event this information is protected by the Federal Confidentiality of Alcohol and Drug Abuse Patient Records regulations: The Federal rules restrict any use of the information to criminally investigate or prosecute any alcohol or drug abuse patient.[facility] HospitalIn the event this information is protected by the Federal Confidentiality of Alcohol and Drug Abuse Patient Records regulations: The Federal rules restrict any use of the information to criminally investigate or prosecute any alcohol or drug abuse patient.[facility] HospitalIn the event this information is protected by the Federal Confidentiality of Alcohol and Drug Abuse Patient Records regulations: The Federal rules restrict any use of the information to criminally investigate or prosecute any alcohol or drug abuse patient.[facility] HospitalIn the event this information is protected by the Federal Confidentiality of Alcohol and Drug Abuse Patient Records regulations: The Federal rules restrict any use of the information to criminally investigate or prosecute any alcohol or drug abuse patient.[facility] HospitalIn the event this information is protected by the Federal Confidentiality of Alcohol and Drug Abuse Patient Records regulations: The Federal rules restrict any use of the information to criminally investigate or prosecute any alcohol or drug abuse patient.[facility] HospitalIn the event this information is protected by the Federal Confidentiality of Alcohol and Drug Abuse Patient Records regulations: The Federal rules restrict any use of the information to criminally investigate or prosecute any alcohol or drug abuse patient.[facility] HospitalIn the event this information is protected by the Federal Confidentiality of Alcohol and Drug Abuse Patient Records regulations: The Federal rules restrict any use of the information to criminally investigate or prosecute any alcohol or drug abuse patient.[facility] HospitalIn the event this information is protected by the Federal Confidentiality of Alcohol and Drug Abuse Patient Records regulations: The Federal rules restrict any use of the information to criminally investigate or prosecute any alcohol or drug abuse patient.[facility] HospitalIn the event this information is protected by the Federal Confidentiality of Alcohol and Drug Abuse Patient Records regulations: The Federal rules restrict any use of the information to criminally investigate or prosecute any alcohol or drug abuse patient.[facility] HospitalIn the event this information is protected by the Federal Confidentiality of Alcohol and Drug Abuse Patient Records regulations: The Federal rules restrict any use of the information to criminally investigate or prosecute any alcohol or drug abuse patient.[facility] Reason for Visit (unrecogniz ed section and content) Reason Comments Radiotherapy On-treatment Visit Reason Comments Prostate Cancer Reason Comments Appointment Reason Comments Received Outside Medical Records Reason Comments Consult Reason Comments Radiology NM Specialty Diagnoses / Procedures Referred By Contac t Referred To Contact MOLECULAR & FUNCTIONAL IMAGING Diagnoses Chronic systolic heart failure (HCC) Coronary artery disease involving [place] coronary artery of [place] heart without angina pectoris Procedures NM PET/CT CARDIAC PERF REST/STRESS MYOCRD IMG PET PRFUJ SCRATCH FINISHER STD RST & STRS CNCRNT CT Andreas Del Cid MD [address] [place] [address] Molecular & Functional Imaging [address] [id number] Referral ID Status Reason Start Date Expiration Date V isits Requested Visits Authorized [id number] Closed Auto-Generate d Referral 09/06/2022 10/06/2023 1 1 Reason Comments Surgery Cancelled Reason Comments Nm Pet Request Reason Onset Date Comments Refill Request 08/22/2023 Reason Comments Appointment Left a message with the patient regarding the cancellation of 10/22/2023 with . Informed the patient of the new scheduled appointment on 10/29/2023 with . 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 Reason Comments Research 18-600 Empower Study Reason Comments Research IRB 18-600 Empower A ssessment of the CARILLON Mitral Contour System in Treating Functional Mitral Regurgitation Associated with Heart Failure PI: [facility] [place] Teams (unrecognized sec tion and content) Telepathist Relationship Specialty Start Date End Date Francisca Thompson MD PCP - General Family Practice 05/30/12 Carlos, Tom Vagesh [address] [place] [address] Primary Staff Physician Cardiology 12/02/18 Telepathist Relationship Specialty Start Date End Date Francisca Thompson MD PCP - General Family Practice 05/30/12 Tom Gonzalez Vagesh [address] [place] [address] Primary Staff Physician Cardiology 12/02/18 Telepathist Relationship Specialty Start Date End Date Francisca Thompson MD PCP - General Family Practice 05/30/12 Tom Gonzalez Vagesh [address] [place] [address] Primary Staff Physician Cardiology 12/02/18 Telepathist Relationship Specialty Start Date End Date Francisca Thompson MD PCP - General Family Practice 05/30/12 Tom Gonzalez Vagmaria r [address] [place] [address] Primary Staff Physician Cardiology 12/02/18 Telepathist Relationship Specialty Start Date End Date Francisca Thompson MD PCP - General Family Practice 05/30/12 Tom Gonzalez Vagmaria r [address] [place] [address] Primary Staff Physician Cardiology 12/02/18 Telepathist Relationship Specialty Start Date End Date Francisca Thompson MD PCP - General Family Practice 05/30/12 [facility] Tom Vagesh [address] [place] [address] Primary Staff Physician Cardiology 12/02/18 Telepathist Relationship Specialty Start Date End Date Francisca Thompson MD PCP - General Family Medicine 05/30/12 Carlos, Tom Vagesh [address] [place] [address] Primary Staff Physician Cardiology 12/02/18 Telepathist Relationship Specialty Start Date End Date Francisca Thompson MD PCP - General Family Medicine 05/30/12 Tom Gonzalez Vagesh [address] [place] [address] Primary Staff Physician Cardiology 12/02/18 Telepathist Relationship Specialty Start Date End Date Francisca Thompson MD PCP - General Family Medicine 05/30/12 Tom Gonzalez [facility] [address] [place] [address] Primary Staff Physician Cardiology 12/02/18 Telepathist Relationship Specialty Start Date End Date Francisca Thompson MD PCP - General Family Medicine 05/30/12 [facility] [address] [place] [address] Primary Staff Physician Cardiology 12/02/18 Telepathist Relationship Specialty Start Date End Date Francisca Thompson MD PCP - General Family Medicine 05/30/12 Carlos, Tom Vagesh [address] [place] [address] Primary Staff Physician Cardiology 12/02/18 Telepathist Relationship Specialty Start Date End Date Francisca Thompson MD PCP - General Family Medicine 05/30/12 Felixmireya, Tom Vagesh [address] [place] [address] Primary Staff Physician Cardiology 12/02/18 Telepathist Relationship Specialty Start Date End Date Francisca Thompson MD PCP - General Family Medicine 05/30/12 Carlos, Tom Vagesh [address] [place] [address] Primary Staff Physician Cardiology 12/02/18 Telepathist Relationship Specialty Start Date End Date Francisca Thompson MD PCP - General Family Medicine 05/30/12 Carlos, Tom Vagesh [address] [place] [address] Primary Staff Physician Cardiology 12/02/18 Telepathist Relationship Specialty Start Date End Date Francisca Thompson MD PCP - General Family Medicine 05/30/12 Tom Gonzalez Vagesh [address] [place] [address] Primary Staff Physician Cardiology 12/02/18 Telepathist Relationship Specialty Start Date End Date Francisca Thompson MD PCP - General Family Medicine 05/30/12 Carlos, Tom Vagesh [address] [place] [address] Primary Staff Physician Cardiology 12/02/18 Telepathist Relationship Specialty Start Date End Date Francisca Thompson MD PCP - General Family Medicine 05/30/12 [facility] [address] [place] [address] Primary Staff Physician Cardiology 12/02/18 Telepathist Relationship Specialty Start Date End Date Francisca Thompson MD PCP - General Family Medicine 05/30/12 [facility] [address] [place] [address] Primary Staff Physician Cardiology 12/02/18 Telepathist Relationship Specialty Start Date End Date Francisca Thompson MD PCP - General Family Medicine 05/30/12 [facility] [address] [place] [address] Primary Staff Physician Cardiology 12/02/18 Telepathist Relationship Specialty Start Date End Date Francisca Thompson MD PCP - General Family Medicine 05/30/12 Tom Gonzalez [address] [place] [address] Primary Staff Physician Cardiology 12/02/18 Andreas Del Cid MD [address] [place] [address] Primary Staff Physician Cardiology 04/26/23 Telepathist Relationship Specialty Start Date End Date Francisca Thompson MD PCP - General Family Medicine 05/30/12 Tom Gonzalez [address] [place] [address] Primary Staff Physician Cardiology 12/02/18 Andreas Del Cid MD [address] [place] [address] Primary Staff Physician Cardiology 04/26/23 Telepathist Relationship Specialty Start Date End Date Francisca Thompson MD PCP - General Family Medicine 05/30/12 Tom Gonzalez [address] [place] [address] Primary Staff Physician Cardiology 12/02/18 Andreas Del Cid MD [address] [place] [address] Primary Staff Physician Cardiology 04/26/23 Telepathist Relationship Specialty Start Date End Date Francisca Thompson MD PCP - General Family Medicine 05/30/12 Tom Gonzalez [address] [place] [address] Primary Staff Physician Cardiology 12/02/18 Andreas Del Cid MD [address] [place] [address] Primary Staff Physician Cardiology 04/26/23 Telepathist Relationship Specialty Start Date End Date Francisca Thompson MD PCP - General Family Medicine 05/30/12 Tom Gonzalez [address] [place] [address] Primary Staff Physician Cardiology 12/02/18 Andreas Del Cid MD [address] [place] [address] Primary Staff Physician Cardiology 04/26/23 Virgil Carrillo MD [address] [place] [address] Primary Staff Physician Cardiology 10/29/23 Telepathist Relationship Specialty Start Date End Date Francisca Thompson MD PCP - General Family Medicine 05/30/12 Tom Gonzalez [address] [place] [address] Primary Staff Physician Cardiology 12/02/18 Andreas Del Cid MD [address] [place] [address] Primary Staff Physician Cardiology 04/26/23 Virgil Carrillo MD [address] [place], [place] [address] Primary Staff Physician Cardiology 10/29/23 Telepathist Relationship Specialty Start Date End Date Francisca Thompson MD PCP - General Family Medicine 05/30/12 Tom Gonzalez [address] [place] [place] [address] Primary Staff Physician Cardiology 12/02/18 Andreas Del Cid MD [address] [place] [address] Primary Staff Physician Cardiology 04/26/23 Virgil Carrillo MD [address] [place] [address] Primary Staff Physician Cardiology 10/29/23 Telepathist Relationship Specialty Start Date End Date Francisca Thompson MD PCP - General Family Medicine 05/30/12 Tom Gonzalez [address] [facility] [place] [address] Primary Staff Physician Cardiology 12/02/18 Andreas Del Cid MD [address] [facility] [place] [address] Primary Staff Physician Cardiology 04/26/23 Virgil Carrillo MD [address] [place], [place] [address] Primary Staff Physician Cardiology 10/29/23 Telepathist Relationship Specialty Start Date End Date Francisca Thompson MD [address] [place] [address] PCP - General Family Medicine 06/29/19 Telepathist Relationship Specialty Start Date End Date Francisca Thompson MD PCP - General Family Medicine 05/30/12 Tom Gonzalez [address] [place] [address] Primary Staff Physician Cardiology 12/02/18 Andreas Del Cid MD [address] [facility] [place] [address] Primary Staff Physician Cardiology 04/26/23 Virgil Carrillo MD [address] [place] [address] Primary Staff Physician Cardiology 10/29/23 Telepathist Relationship Specialty Start Date End Date Francisca Thompson MD PCP - General Family Medicine 05/30/12 [facility] [address] [facility] [place] [address] Primary Staff Physician Cardiology 12/02/18 Andreas Del Cid MD [address] [place], [place] [address] Primary Staff Physician Cardiology 04/26/23 Virgil Carrillo MD [address] [place] [address] Primary Staff Physician Cardiology 10/29/23 Telepathist Relationship Specialty Start Date End Date Francisca Thompson MD PCP - General Family Medicine 05/30/12 [facility] [address] [place] [address] Primary Staff Physician Cardiology 12/02/18 Andreas Del Cid MD [address] [place], [place] [address] Primary Staff Physician Cardiology 04/26/23 Virgil Carrillo MD [address] [place] [address] Primary Staff Physician Cardiology 10/29/23 Efren Brady MD [address] [place] [address] Primary Staff Physician Cardiology 12/26/23 Telepathist Relationship Specialty Start Date End Date Francisca Thompson MD PCP - General Family Medicine 05/30/12 Tom Gonzalez [address] [place] [address] Primary Staff Physician Cardiology 12/02/18 Andreas Del Cid MD [address] [place] [address] Primary Staff Physician Cardiology 04/26/23 Virgil Carrillo MD [address] [place], [place] [address] Primary Staff Physician Cardiology 10/29/23 Efren Brady MD [address] [place] [address] Primary Staff Physician Cardiology 12/26/23 Telepathist Relationship Specialty Start Date End Date Francisca Thompson MD PCP - General Family Medicine 05/30/12 Tom Gonzalez [address] [place] [address] Primary Staff Physician Cardiology 12/02/18 Andreas Del Cid MD [address] [place] [address] Primary Staff Physician Cardiology 04/26/23 Virgil Carrillo MD [address] [place] [address] Primary Staff Physician Cardiology 10/29/23 Efren Brady MD [address] [place] [address] Primary Staff Physician Cardiology 12/26/23 Telepathist Relationship Specialty Start Date End Date Francisca Thompson MD PCP - General Family Medicine 05/30/12 Tom Gonzalez [address] [facility] [place] [address] Primary Staff Physician Cardiology 12/02/18 Andreas Del Cid MD [address] [place] [address] Primary Staff Physician Cardiology 04/26/23 Virgil Carrillo MD [address] [place] [address] Primary Staff Physician Cardiology 10/29/23 Efren Brady MD [address] [place] [address] Primary Staff Physician Cardiology 12/26/23 Telepathist Relationship Specialty Start Date End Date Francisca Thompson MD PCP - General Family Medicine 05/30/12 Tom Gonzalez [address] [facility] [place] [address] Primary Staff Physician Cardiology 12/02/18 Andreas Del Cid MD [address] [place] [address] Primary Staff Physician Cardiology 04/26/23 Virgil Carrillo MD [address] [place] [address] Primary Staff Physician Cardiology 10/29/23 Efren Brady MD [address] [facility] [place] [address] Primary Staff Physician Cardiology 12/26/23 Paulina Fernandes MD [facility] [place] [id number] Primary Staff Physician Cardiology 01/10/24 Telepathist Relationship Specialty Start Date End Date Francisca Thompson MD PCP - General Family Medicine 05/30/12 Tom Gonzalez [address] [place] [address] Primary Staff Physician Cardiology 12/02/18 Andreas Del Cid MD [facility] [place] [id number] Primary Staff Physician Cardiology 04/26/23 Virgil Carrillo MD [address] [place] [address] Primary Staff Physician Cardiology 10/29/23 Efren Brady MD [address] [place], [place] [address] Primary Staff Physician Cardiology 12/26/23 Paulina Fernandes MD [address] [place] [address] Primary Staff Physician Cardiology 01/10/24 Telepathist Relationship Specialty Start Date End Date Francisca Thompson MD PCP - General Family Medicine 05/30/12 Tom Gonzalez [address] [place] [address] Primary Staff Physician Cardiology 12/02/18 Andreas Del Cid MD [address] [place] [address] Primary Staff Physician Cardiology 04/26/23 Virgil Carrillo MD [address] [place] [address] Primary Staff Physician Cardiology 10/29/23 Efren Brady MD [address] [place] [address] Primary Staff Physician Cardiology 12/26/23 Paulina Fernandes MD [address] [place] [address] Primary Staff Physician Cardiology 01/10/24 Telepathist Relationship Specialty Start Date End Date Francisca Thompson MD PCP - General Family Medicine 05/30/12 Tom Gonzalez [address] [facility] [place] [address] Primary Staff Physician Cardiology 12/02/18 Andreas Del Cid MD [address] [place] [address] Primary Staff Physician Cardiology 04/26/23 Virgil Carrillo MD [address] [place] [address] Primary Staff Physician Cardiology 10/29/23 Efren Brady MD [address] [facility] [place] [address] Primary Staff Physician Cardiology 12/26/23 Paulina Fernandes MD [address] [place] [id number] Primary Staff Physician Cardiology 01/10/24 Telepathist Relationship Specialty Start Date End Date Francisca Thompson MD PCP - General Family Medicine 05/30/12 Tom Gonzalez [address] [place], [place] [address] [address] Primary Staff Physician Cardiology 12/02/18 Andreas Del Cid MD [address] [place] [address]334695 Primary Staff Physician Cardiology 04/26/23 Virgil Carrillo MD [address] [place], [place] [address] Primary Staff Physician Cardiology 10/29/23 Efren Brady MD [address] [place], [place] [address] Primary Staff Physician Cardiology 12/26/23 Paulina Fernandes MD [address] [place] [address] Primary Staff Physician Cardiology 01/10/24 Telepathist Relationship Specialty Start Date End Date Francisca Thompson MD PCP - General Family Medicine 05/30/12 Tom Gonzalez [address] [place], [place] [address]DI[place] [address] Primary Staff Physician Cardiology 12/02/18 Andreas Del Cid MD [address] [place], [place] [address] Primary Staff Physician Cardiology 04/26/23 Virgil Carrillo MD [address] [place], [place] [address] Primary Staff Physician Cardiology 10/29/23 Efren Brady MD [address] [place] [address] Primary Staff Physician Cardiology 12/26/23 [place] [address] [place] [address] Primary Staff Physician Cardiology 01/10/24 FOR RECORDS PERTAINING TO PATIENTS WHO ARE [...] BE BASED ON THE PRIMARY CLINICAL RECORDS. [employer] [facility]. provides no warranty or guarantee of the accuracy or completeness of information in this document.
== END 2024-02-12 17:15 | disposition home or self-care (01) ==
PROVIDERS: PCP Family Medicine; Visit Provider Family Medicine
DX: I50.9 Heart failure, unspecified (principal); J90 Pleural effusion, not elsewhere classified
CPT/HCPCS: 71046

== ENCOUNTER 2024-04-21 12:40 | Outpatient (OUT) | payer MEDICARE, OTHER, SELFPAY ==
[2024-04-21 13:08] LABS: Basophils Absolute Auto 0.1 10^3/uL (0.0-0.1); Basophils Percent Auto 0.7 % (0.2-2.0); Eosinophils Absolute Auto 0.3 10^3/uL (0.0-0.7); Eosinophils Percent Auto 3.9 % (0.9-7.0); Hematocrit 33.8 % (42.0-54.0); Hemoglobin 10.1 g/dL (14.0-18.0); Immature Granulocytes Abs Auto 0.03 10^3/uL (0.00-0.03); Immature Granulocytes Pct Auto 0.4 % (0.0-0.5); Lymphocytes Absolute Auto 1.2 10^3/uL (1.2-3.8); Lymphocytes Percent Auto 16.6 % (20.5-60.0); Mean Corpuscular HGB Conc 29.9 g/dL (29.9-35.2); Mean Corpuscular Hemoglobin 28.9 pg (25.9-34.0); Mean Corpuscular Volume 96.6 fL (80.0-94.0); Mean Platelet Volume 10.1 fL (9.5-13.5); Monocytes Absolute Auto 0.8 10^3/uL (0.3-0.8); Monocytes Percent Auto 10.4 % (1.7-12.0); Neutrophils Absolute Auto 4.9 10^3/uL (1.4-6.5); Platelet Count 216 10^3/uL (150-450); White Blood Count 7.2 10^3/uL (4.0-11.0)
[2024-04-21 13:30] LABS: Alanine Aminotransferase 19 U/L (16-63); Albumin Globulin Ratio 0.9; Albumin Level 3.2 g/dL (3.4-5.0); Alkaline Phosphatase 102 U/L (46-116); Anion Gap 16.3; Aspartate Amino Transferase 29 U/L (15-37); BUN Creatinine Ratio 19.7; Bilirubin Total 0.9 mg/dL (0.2-1.0); Calcium 9.3 mg/dL (8.5-10.1); Carbon Dioxide 25.3 mmol/L (21.0-32.0); Chloride 102 mmol/L (98-107); Estimated GFR (African America 35 (>=60); Estimated GFR (Non-African Ame 29 (>=60); Globulin 3.6 g/dL; Glucose 110 mg/dL (74-106); Potassium 4.6 mmol/L (3.5-5.1); Sodium 139 mmol/L (136-145); Total Protein 6.8 g/dL (6.4-8.2)
== END 2024-04-21 12:41 | disposition home or self-care (01) ==
LOC: LAB 12:43
PROVIDERS: PCP Family Medicine; Visit Provider Family Medicine
DX: D64.9 Anemia, unspecified (principal); R06.02 Shortness of breath; Q75.2 Hypertelorism; I50.30 Unspecified diastolic (congestive) heart failure; I11.0 Hypertensive heart disease with heart failure
CPT/HCPCS: 36415; 80053; 82728; 83540; 83880; 85025

== ENCOUNTER 2024-05-01 07:42 | Outpatient (RCR) | payer MEDICARE, OTHER, SELFPAY ==
[2024-04-24 15:00] VITALS: BP 121/65; PULSE 82; TEMP 36.3; O2SAT 93
[2024-04-24] MEDS: FERRIC CARBOXYMALTOSE 750 MG in 0.9 % SODIUM CHLORIDE 250 ML 795 MG IV (15:21)
--- NOTE | 2024-04-24 15:48 | PC.NURSE ---
1500: Pt. to [facility] amb. for iron infusion. Seated in recliner. VSS. IV initiated, see documentation. Pt. tolerated without c/o. Given water, declines snack. IV Injectafer initiated as ordered. Pt. denies needs. 1544: Infusion completed without s&s of adverse reaction. IV d/c'd, pressure to site. Pt. d/c'd amb. to home.
[2024-05-01 14:35] VITALS: BP 95/54; PULSE 61; TEMP 36.3; O2SAT 92
[2024-05-01] MEDS: FERRIC CARBOXYMALTOSE 750 MG in 0.9 % SODIUM CHLORIDE 250 ML 795 MG IV (14:53)
--- NOTE | 2024-05-01 14:55 | PC.NURSE ---
1435: Pt. to [facility] amb. for iron infusion. Seated in recliner. VSS. IV initiated to right forearm, see documentation. IV Injectafer initiated at this time. Pt. given water.
--- NOTE | 2024-05-01 15:16 | PC.NURSE ---
1515: Infusion complete without s&s of adverse reaction. IV d/c'd, pressure to site. D/c'd amb. to home.
== END 2024-05-16 23:59 | disposition home or self-care (01) ==
LOC: INF 07:42
PROVIDERS: PCP Family Medicine; Visit Provider Family Medicine
DX: D50.9 Iron deficiency anemia, unspecified (principal)
CPT/HCPCS: 96365; J1439

== ENCOUNTER 2024-07-21 08:37 | Outpatient (OUT) | payer MEDICARE, OTHER, SELFPAY ==
[2024-07-21 09:04] LABS: Basophils Percent Auto 0.6 % (0.2-2.0); Eosinophils Absolute Auto 0.1 10^3/uL (0.0-0.7); Hematocrit 41.6 % (42.0-54.0); Hemoglobin 12.8 g/dL (14.0-18.0); Immature Granulocytes Abs Auto 0.01 10^3/uL (0.00-0.03); Immature Granulocytes Pct Auto 0.2 % (0.0-0.5); Lymphocytes Percent Auto 20.2 % (20.5-60.0); Mean Corpuscular HGB Conc 30.8 g/dL (29.9-35.2); Mean Corpuscular Hemoglobin 27.9 pg (25.9-34.0); Mean Corpuscular Volume 90.8 fL (80.0-94.0); Mean Platelet Volume 10.2 fL (9.5-13.5); Monocytes Absolute Auto 0.6 10^3/uL (0.3-0.8); Monocytes Percent Auto 12.8 % (1.7-12.0); Neutrophils Absolute Auto 3.2 10^3/uL (1.4-6.5); Neutrophils Percent Auto 64.2 % (43.0-75.0); Platelet Count 159 10^3/uL (150-450); Red Blood Count 4.58 10^6/uL (4.70-6.10); Red Cell Distribution Width 16.9 % (11.0-15.0); White Blood Count 4.9 10^3/uL (4.0-11.0)
[2024-07-21 11:30] LABS: Alanine Aminotransferase 14 U/L (16-63); Albumin Globulin Ratio 0.9; Albumin Level 3.1 g/dL (3.4-5.0); Alkaline Phosphatase 91 U/L (46-116); Anion Gap 14.7; Aspartate Amino Transferase 21 U/L (15-37); BUN Creatinine Ratio 15.2; Bilirubin Total 1.1 mg/dL (0.2-1.0); Calcium 9.5 mg/dL (8.5-10.1); Carbon Dioxide 27.9 mmol/L (21.0-32.0); Chloride 101 mmol/L (98-107); Estimated GFR (African America 28 (>=60 mL/min/1.73m^2); Estimated GFR (Non-African Ame 23 (>=60 mL/min/1.73m^2); Free T3 2.82 pg/mL (2.18-3.98); Globulin 3.6 g/dL; Glucose 100 mg/dL (74-106); Potassium 3.6 mmol/L (3.5-5.1); Sodium 140 mmol/L (136-145); Thyroid Stimulating Hormone 2.175 uIU/mL (0.358-3.740); Total Protein 6.7 g/dL (6.4-8.2)
[2024-07-21 11:39] LABS: NT Pro B Type Natriuretic Pept >35000.0 pg/mL (<=1800.0)
[2024-07-21 11:51] LABS: Free T4 0.87 ng/dL (0.76-1.46)
== END 2024-07-21 08:38 | disposition home or self-care (01) ==
LOC: LAB 08:49
PROVIDERS: PCP Family Medicine; Visit Provider Family Medicine
DX: I50.9 Heart failure, unspecified (principal); I51.7 Cardiomegaly
CPT/HCPCS: 36415; 80053; 83880; 84439; 84443; 84481; 84484; 85025

== ENCOUNTER 2024-07-30 12:42 | Outpatient (OUT) | payer MEDICARE, OTHER, SELFPAY ==
[2024-07-30 13:18] LABS: Basophils Percent Auto 0.6 % (0.2-2.0); Eosinophils Absolute Auto 0.2 10^3/uL (0.0-0.7); Eosinophils Percent Auto 2.8 % (0.9-7.0); Hematocrit 41.6 % (42.0-54.0); Hemoglobin 12.9 g/dL (14.0-18.0); Immature Granulocytes Abs Auto 0.02 10^3/uL (0.00-0.03); Immature Granulocytes Pct Auto 0.4 % (0.0-0.5); Lymphocytes Absolute Auto 0.8 10^3/uL (1.2-3.8); Lymphocytes Percent Auto 15.1 % (20.5-60.0); Mean Corpuscular Hemoglobin 28.1 pg (25.9-34.0); Mean Corpuscular Volume 90.6 fL (80.0-94.0); Mean Platelet Volume 10.4 fL (9.5-13.5); Monocytes Absolute Auto 0.5 10^3/uL (0.3-0.8); Monocytes Percent Auto 9.1 % (1.7-12.0); Neutrophils Absolute Auto 3.9 10^3/uL (1.4-6.5); Platelet Count 169 10^3/uL (150-450); Red Blood Count 4.59 10^6/uL (4.70-6.10); Red Cell Distribution Width 17.2 % (11.0-15.0); White Blood Count 5.4 10^3/uL (4.0-11.0)
[2024-07-30 14:06] LABS: Alanine Aminotransferase 26 U/L (16-63); Albumin Globulin Ratio 0.8; Albumin Level 3.3 g/dL (3.4-5.0); Alkaline Phosphatase 93 U/L (46-116); Anion Gap 13.9; Aspartate Amino Transferase 35 U/L (15-37); BUN Creatinine Ratio 18.9; Bilirubin Total 1.3 mg/dL (0.2-1.0); Calcium 9.7 mg/dL (8.5-10.1); Carbon Dioxide 30.4 mmol/L (21.0-32.0); Chloride 101 mmol/L (98-107); Estimated GFR (African America 34 (>=60 mL/min/1.73m^2); Estimated GFR (Non-African Ame 28 (>=60 mL/min/1.73m^2); Glucose 105 mg/dL (74-106); Magnesium 2.2 mg/dL (1.8-2.4); Potassium 3.3 mmol/L (3.5-5.1); Sodium 142 mmol/L (136-145); Thyroid Stimulating Hormone 2.887 uIU/mL (0.358-3.740); Total Protein 7.3 g/dL (6.4-8.2)
[2024-07-30 14:13] LABS: Free T4 0.86 ng/dL (0.76-1.46); NT Pro B Type Natriuretic Pept >35000.0 pg/mL (<=1800.0); Troponin I High Sensitivity 548.2 pg/mL (4.0-76.1)
[2024-07-31 04:07] LABS: Vitamin B12 524 pg/mL (232-1245)
[2024-08-02 15:09] LABS: Vitamin B1 (Thiamine), Blood 112.2 nmol/L (66.5-200.0)
== END 2024-07-30 12:43 | disposition home or self-care (01) ==
PROVIDERS: PCP Family Medicine; Visit Provider Family Medicine
DX: I49.3 Ventricular premature depolarization (principal)
CPT/HCPCS: 36415; 80053; 82607; 82746; 83735; 83880; 84425; 84439; 84443; 84484; 85025

== ENCOUNTER 2024-09-12 16:47 | Inpatient (IN) | payer MEDICARE, OTHER, SELFPAY ==
[2024-09-12] VITALS (8 sets, daily range): BP systolic 89–121; BP diastolic 50–65; PULSE 62–76; TEMP 36.4–36.8; O2SAT 93–98; BMI 23.7; BMI 25.0
--- OUTSIDE RECORDS SUMMARY | 2024-09-12 17:04 | XMS_ITS | CCD ---
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 Name Role Phone Samm Thompson MD Primary Care Provider [phone] Tom Gonzalez Unavailable [phone] SHARON HOOKS Referring Unavailable MARLENE KRISHNA Attending Unavailable NORMA ARORA Admitting Unavailable SAMM THOMPSON Primary Care Unavailable Samm Thompson MD Primary Care Provider [phone] Tom Gonzalez Unavailable Samm Thompson MD Primary Care Provider [phone] Tom Gonzalez Unavailable [phone] DR SAMM AYERS Primary Care Unavailable MALAIKA FAUST Consulting Unavailable MALAIKA FAUST Admitting Unavailable MALAIKA FAUST Attending Unavailable DONNA ., DR ESPINOSA Primary Care Unavailable DONNA ., DR ESPINOSA Admitting Unavailable DONNA ., DR ESPINOSA Consulting Unavailable DONNA Qureshi, DR ESPINOSA Attending Unavailable SHARON VAZQUEZ Attending Unavailable DONNA Qureshi, DR ESPINOSA Primary Care Unavailable JIM, DR AYANA Mata Consulting Unavailable NEVA Qureshi, SHARON Admitting Unavailable LINDA JUNIOR Consulting Unavailable SHARON VAZQUEZ Consulting Unavailable ARVIND, DR LUTZ Consulting Unavailable ARVIND, DR LUTZ Attending Unavailable DONNA Qureshi, DR ESPINOSA Primary Care Unavailable ARVIND, DR LUTZ Admitting Unavailable JIM, DR AYANA Mata Consulting Unavailable MISC, DR DURAN Admitting Unavailable [...] Attending Unavailable MISC, DR DURAN Admitting Unavailable Zahra Pierre MD Unavailable Tom Gonzalez Unavailable [phone] Zahra Pierre MD Unavailable Virgil Carrillo MD Unavailable Samm Thompson MD Primary Care Provider [phone] Efren Brady MD Unavailable RAMA MCKEON Admitting Unavailable JUAN PABLO TAVARES Attending Unavailab JUAN PABLO Day Consulting Unavailab jakub MCKEON, RAMA Referring Unavailable MOUKARBMALAIKA MURRAY Attending Unavailable MOUKARBELMALAIKA Attending Unavailable JUAN PABLO TAVARES Referring Unavailab jakub MARTINE CHARU Referring Unavailable MOUKARBELMALAIKA Referring Unavailable MIKE, RAMA Referring Unavailable MIKE, RAMA Referring Unavailable BEKA YOUNG Attending Unavailable JASKARAN ALVAREZ Attending Unavailable VILMA PLATA Referring Unavailable RAJAT ZIMMER Attending Unavailable NICHOLE ALVAREZ Referring Unavailable SONJA CONLEY Referring Unavailable MOUKARBEL, MALAIKA Attending Unavailable HOY, SAMM Referring Unavailable MIKE, RAMA Admitting Unavailable TROY ABDUL Attending Unavailable RICKY OBREGON Referring Unavailable Samm Thompson MD Primary Care Provider [phone] Paulina Fernandes MD Unavailable [phone] ZAHRA LEON Referring Unavailable HOY, SAMM M Primary Care Unavailable CHERYL LEES Attending Unavailable HOY, SAMM M Primary Care Unavailable ABDULAZIZ BENITEZ Consulting Unavailable CHERYL LEES Admitting Unavailable Carmela Fernandes MD Unavailable [phone] Samm Thompson MD Primary Care Provider [phone] HOY, SAMM M Referring Unavailable HOY, SAMM M Primary Care Unavailable HOY, SAMM M Referring Unavailable HOY, SAMM M Primary Care Unavailable PHYSICIAN, UNKNOWN Referring Unavailable HOY, SAMM M Primary Care Unavailable PHYSICIAN, UNKNOWN Referring Unavailable HOY, SAMM M Primary Care Unavailable HOY, SAMM M Referring Unavailable HOY, SAMM M Primary Care Unavailable HOY, SAMM M Referring Unavailable HOY, SAMM M Primary Care Unavailable HOY, SAMM M Referring Unavailable HOY, SAMM M Primary Care Unavailable HOY, SAMM M Referring Unavailable HOY, SAMM M Primary Care Unavailable HOY, SAMM M Referring Unavailable HOY, SAMM M Primary Care Unavailable HOY, SAMM M Referring Unavailable HOY, SAMM M Primary Care Unavailable HOY, SAMM M Referring Unavailable ZAHRA LEON Attending Unavailable ZAHRA LEON Referring Unavailable HOY, SAMM M Primary Care Unavailable ZAHRA LEON Attending Unavailable ZAHRA LEON Referring Unavailable HOY, SAMM M Primary Care Unavailable HOY, SAMM M Primary Care Unavailable ZAHRA LEON Attending Unavailable HOY, SAMM M Referring Unavailable HOY, SAMM M Primary Care Unavailable HOY, SAMM M Referring Unavailable HOY, SAMM M Primary Care Unavailable HOY, SAMM M Referring Unavailable HOY, SAMM M Primary Care Unavailable HOY, SAMM M Referring Unavailable HOY, SAMM M Primary Care Unavailable HOY, SAMM M Referring Unavailable HOY, SAMM M Primary Care Unavailable HOY, SAMM M Referring Unavailable HOY, SAMM M Primary Care Unavailable HOY, SAMM M Referring Unavailable HOY, SAMM M Primary Care Unavailable HOY, SAMM M Referring Unavailable HOY, SAMM M Primary Care Unavailable HOY, SAMM M Referring Unavailable HOY, SAMM M Primary Care Unavailable HOY, SAMM M Referring Unavailable HOY, SAMM M Primary Care Unavailable HOY, SAMM M Referring Unavailable HOY, SAMM M Primary Care Unavailable HOY, SAMM M Referring Unavailable HOY, SAMM M Primary Care Unavailable HOY, SAMM M Referring Unavailable HOY, SAMM M Primary Care Unavailable HOY, SAMM M Referring Unavailable HOY, SAMM M Primary Care Unavailable HOY, SAMM M Referring Unavailable HOY, SAMM M Primary Care Unavailable HOY, SAMM M Referring Unavailable HOY, SAMM M Primary Care Unavailable HOY, SAMM M Referring Unavailable HOY, SAMM M Primary Care Unavailable HOY, SAMM M Referring Unavailable HOY, SAMM M Primary Care Unavailable HOY, SAMM M Referring Unavailable HOY, SAMM M Primary Care Unavailable HOY, SAMM M Referring Unavailable HOY, SAMM M Primary Care Unavailable HOY, SAMM M Referring Unavailable HOY, SAMM M Primary Care Unavailable HOY, SAMM M Referring Unavailable HOY, SAMM M Primary Care Unavailable HOY, SAMM M Referring Unavailable HOY, SAMM M Primary Care Unavailable PHYSICIAN, UNKNOWN Referring Unavailable HOY, SAMM M Primary Care Unavailable HOY, SAMM M Referring Unavailable HOY, SAMM M Primary Care Unavailable PHYSICIAN, UNKNOWN Referring Unavailable HOY, SAMM M Primary Care Unavailable PHYSICIAN, UNKNOWN Referring Unavailable HOY, SAMM M Primary Care Unavailable PHYSICIAN, UNKNOWN Referring Unavailable HOY, SAMM M Primary Care Unavailable PHYSICIAN, UNKNOWN Referring Unavailable HOY, SAMM M Primary Care Unavailable PHYSICIAN, UNKNOWN Referring Unavailable HOY, SAMM M Primary Care Unavailable PHYSICIAN, UNKNOWN Referring Unavailable HOY, SAMM M Primary Care Unavailable PHYSICIAN, UNKNOWN Referring Unavailable HOY, SAMM M Primary Care Unavailable PHYSICIAN, UNKNOWN Referring Unavailable HOY, SAMM M Primary Care Unavailable HOY, SAMM M Referring Unavailable HOY, SAMM M Primary Care Unavailable HOY, SAMM M Referring Unavailable HOY, SAMM M Primary Care Unavailable HOY, SAMM M Referring Unavailable HOY, SAMM M Primary Care Unavailable HOY, SAMM M Referring Unavailable HOY, SAMM M Primary Care Unavailable HOY, SAMM M Referring Unavailable HOY, SAMM M Primary Care Unavailable HOY, SAMM M Referring Unavailable HOY, SAMM M Primary Care Unavailable HOY, SAMM M Referring Unavailable HOY, SAMM M Primary Care Unavailable HOY, SAMM M Referring Unavailable HOY, SAMM M Primary Care Unavailable HOY, SAMM M Referring Unavailable HOY, SAMM M Primary Care Unavailable HOY, SAMM M Referring Unavailable HOY, SAMM M Primary Care Unavailable HOY, SAMM M Referring Unavailable HOY, SAMM M Primary Care Unavailable HOY, SAMM M Referring Unavailable HOY, SAMM M Primary Care Unavailable HOY, SAMM M Referring Unavailable HOY, SAMM M Primary Care Unavailable HOY, SAMM M Referring Unavailable HOY, SAMM M Primary Care Unavailable HOY, SAMM M Referring Unavailable HOY, SAMM M Primary Care Unavailable HOY, SAMM M Referring Unavailable HOY, SAMM M Primary Care Unavailable HOY, SAMM M Referring Unavailable HOY, SAMM M Primary Care Unavailable HOY, SAMM M Referring Unavailable HOY, SAMM M Primary Care Unavailable HOY, SAMM M Primary Care Unavailable RAMCHAND, VIRGIL Referring Unavailable RAMCHAND, VIRGIL Referring Unavailable HOY, SAMM M Primary Care Unavailable HOY, SAMM M Primary Care Unavailable GAVI CHILDRESS Referring Unavailable HOY, SAMM M Primary Care Unavailable Yung ANDRADE Attending Unavailable HOY, SAMM M Primary Care Unavailable TIARRA LOPEZ Referring Unavailable HOY, SAMM M Primary Care Unavailable HOY, SAMM M Primary Care Unavailable EFREN BRADY Referring Unavailable Yung ANDRADE Attending Unavailable HOY, SAMM M Primary Care Unavailable DEVEN, [place] Referring Unavailable HOY, SAMM M Primary Care Unavailable CARMELA FERNANDES Referring Unavailable HOY, SAMM M Primary Care Unavailable HOY, SAMM M Primary Care Unavailable JOSE ANTONIO, SERGE Referring Unavailable FIDEL CHILDRESSDEVI Juarez Referring Unavailable HOY, SAMM M Primary Care Unavailable HOY, SAMM M Primary Care Unavailable HOY, SAMM M Primary Care Unavailable PRISCILLA RAI Referring Unavailable ALEX SPRAGUE Attending Unavailable KELLI, ISREAL Admitting Unavailable HOY, SAMM M Primary Care Unavailable HOY, SAMM M Referring Unavailable HOY, SAMM M Primary Care Unavailable ALEX SPRAGUE A Attending Unavailable RUBÉN BUCIO Referring Unavailable KELLI, ISREAL Admitting Unavailable HOY, SAMM M Primary Care Unavailable HOY, SAMM M Primary Care Unavailable LUÍS SKINNER Attending Unavailable HOY, SAMM M Primary Care Unavailable JOSE ANTONIO, SERGE Referring Unavailable HOY, SAMM M Primary Care Unavailable CARMELA FERNANDES Referring Unavailable HOY, SAMM M Primary Care Unavailable HOY, SAMM M Primary Care Unavailable TIARRA LOPEZ Referring Unavailable RAMLYND, VIRGIL Attending Unavailable HOY, SAMM M Primary Care Unavailable HOY, SAMM M Referring Unavailable HOY, SAMM M Primary Care Unavailable HOY, SAMM M Primary Care Unavailable HOY, SAMM M Primary Care Unavailable CARMELA FERNANDES Attending Unavailable CARMELA FERNANDES Referring Unavailable HOY, SAMM M Primary Care Unavailable ARARASEP, JEANINE Admitting Unavaila ble SUNDARARAJAN, JEANINE Attending Unavaila ble HOY, SAMM M Primary Care Unavailable GENEVA GUIDO Referring Unavailable OSCAR, LEVAR Admitting Unavailable OSCAR, LEVAR Attending Unavailable HOY, SAMM M Primary Care Unavailable HOY, SAMM M Primary Care Unavailable HOY, SAMM M Primary Care Unavailable CARMELA FERNANDES Attending Unavailable RAMCHAND, VIRGIL Referring Unavailable HOY, SAMM M Primary Care Unavailable RAMLYND, VIRGIL Referring Unavailable HOY, SAMM M Primary Care Unavailable HOY, SAMM M Primary Care Unavailable PRISCILLA RAI Referring Unavailable DARCIE, ALEX A Attending Unavailable KELIL, ISREAL Admitting Unavailable HOY, SAMM M Primary Care Unavailable PRISCILLA RAI Referring Unavailable ALEX SPRAGUE A Attending Unavailable KELLI, ISREAL Admitting Unavailable HOY, SAMM M Primary Care Unavailable DEVEN, [place] Referring Unavailable HOY, SAMM M Primary Care Unavailable HOY, SAMM M Primary Care Unavailable HOY, SAMM M Primary Care Unavailable HOY, SAMM M Primary Care Unavailable CARMELINA MAYA Attending Unavailable HOY, SAMM M Primary Care Unavailable VIRGIL CARRILLO Referring Unavailable HOY, SAMM M Primary Care Unavailable JOSE ANTONIO, SERGE Attending Unavailable HOY, SAMM M Primary Care Unavailable DEVEN, [place] Attending Unavailable HOY, SAMM M Primary Care Unavailable [place], [place] Referring Unavailable CARMELA FERNANDES Attending Unavailable HOY, SAMM M Primary Care Unavailable DEVEN, [place] Referring Unavailable HOY, SAMM M Primary Care Unavailable CARMELA FERNANDES Referring Unavailable HOY, SAMM M Primary Care Unavailable CARMELA FERNANDES Referring Unavailable HOY, SAMM M Primary Care Unavailable HOY, SAMM M Referring Unavailable HOY, SAMM M Primary Care Unavailable JESUSITA AMIN Admitting Unavailable JAMIE HEREDIA Referring Unavailable SAIDA LLANOS Attending Unavailable HOY, SAMM M Primary Care Unavailable CARMELA FERNANDES Attending Unavailable HOY, SAMM M Primary Care Unavailable HOY, SAMM M Primary Care Unavailable JOSE ANTONIO, SERGE Attending Unavailable JOSE ANTONIO, SERGE Referring Unavailable HOY, SAMM M Primary Care Unavailable JOSE ANTONIO, SERGE Referring Unavailable Allergies Allergy Classification Reported Allergen(s) Allergy Type Date of Onset Reaction(s) Facility Adhesive Tape (2 sources) Adhesive Tape Substance Allergy 06-16-2012 [facility] Work Phone: Latex (2 sources) Latex Substance Allergy 03-13-2019 [facility] (20 sources) Adhesive Tape; Translations: [ADHESIVE TAPE (ROSINS)] Allergy to substance 06-16-2012 [facility] Work Phone: (20 sources) Latex; Translations: [LATEX] Drug Allergy 03-13-2019 [facility] (3 sources) Latex Drug allergy (disorder) 11-04-2013 [facility] Medications Current Medications Medication Drug Class(es) Dates Sig (Normalized) Sig (Original) amiodarone hydrochloride 200 mg oral tablet (3 sources) Antiarrhythmic Start: 08-30-2024 amiodarone (PACERONE) 200 mg tablet Take 200 mg BID for 6 weeks then decrease to 200 mg daily 60 tablet 2 08/30/2024 Active apixaban 5 mg oral tablet (20 sources) Factor Xa Inhibitor Start: 07-26-2024 take 1 tablet by mouth twice daily apixaban (ELIQUIS) 5 mg tab(s) Take 1 tablet by mouth two times a day. 30 tablet 3 07/26/2024 Active Start: 05-16-2024 End: 06-15-2024 take 1 tablet by mouth twice daily apixaban (ELIQUIS) 2.5 mg tab(s) Take 1 tablet by mouth two times a day. 180 tablet 3 06/16/2024 Active Start: 08-24-2021 End: 06-06-2022 take 1 tablet [...] mg by mouth daily. Unsure of strength Active End: 10-25-2022 ascorbic acid (VITAMIN C ORA L) Take by mouth as needed. 10/25/2022 Discontinued (Course of therapy completed) End: 10-25-2022 ascorbic acid (VITAMIN C ORA L) Take by mouth as needed. 0 10/25/2022 Discontinued (Course of therapy completed) ascorbic acid (V ITAMIN C ORAL) Take by mouth. 0 Active Comment on above: Take by mouth. Take by mouth as nee ded. atorvastatin 40 mg oral tablet (20 sources) HMG-CoA Reductase Inhibitor Start: 9 End: take 1 tablet by mouth once daily at bedtime atorvastatin (LIPITOR) 40 mg tablet Take 1 tablet by mouth daily at bedtime. 2 05/16/2024 Active Comment on above: Take 40 mg by mouth daily at bedtime. budesonide/formoterol fumarate (SYMBICORT INHALATION) (12 sources) budesonide/formo terol fumarate (SYMBICORT INHALATION) Inhale 1 Inhalation as instructed two times a day. 0 Suspended budesonide/formo terol fumarate (SYMBICORT INHALATION) Inhale 1 Inhalation as instructed two times a day. 0 Active cetirizine hydrochloride 10 mg oral tablet (19 sources) Histamine-1 Receptor Antagonist Start: 07-26-2024 take 1 tablet by mouth once daily as needed cetirizine (ZYRTEC) 10 mg tablet Take 1 tablet by mouth once daily as needed. 30 tablet 3 07/26/2024 Active cholecalciferol 0.025 mg oral capsule (20 sources) Vitamin D take 1 capsule by mouth once daily cholecalciferol, vitamin D3, (VITAMIN D3) 1,000 unit capsule Take 1,000 Units by mouth daily. Active End: 10-25-2022 Cholecalciferol, Vitamin D3, 25 mcg (1,000 unit) cap Take 1,000 Units by mouth as needed. 2,000 10/25/2022 Discontinued (Course of therapy completed) Comment on above: Take 1,000 Units by mouth once daily. 2,000 Take 1,000 Units by mouth as needed. 2,000 Take 1,000 Units by mouth as needed. clopidogrel 75 mg oral tablet (9 sources) P2Y12 Platelet Inhibitor Start: End: take 1 tablet by mouth once daily clopidogrel (PLAVIX) 75 mg tablet Take 1 tablet by mouth once daily for 26 doses. Patient should start on March 06, 2024. 26 tablet 0 03/06/2024 Active dapagliflozin 10 mg oral tablet (20 sources) Sodium-Glucose Cotransporter 2 Inhibitor Start: End: take 1 tablet by mouth once daily at breakfast dapagliflozin propanediol (FARXIGA) 10 mg tablet Take 1 tablet by mouth daily with breakfast. 90 tablet 3 06/01/2024 06/01/2025 Active Start: 05-23-2022 End: 12-03-2023 take 1 tablet by mouth once daily FARXIGA 10 mg tablet Take 1 tablet by mouth once daily. 90 tablet 3 12/03/2022 10/30/2023 Discontinued Comment on above: Take 10 mg by mouth once daily. Take 1 tablet by anuja th once daily. Take 10 mg by mouth daily with breakfast. ezetimibe 10 mg oral tablet (20 sources) Dietary Cholesterol Absorption Inhibitor Start: 05-17-2024 End: 06-19-2024 take 1 tablet by mouth once daily ezetimibe (ZETIA) 10 mg tablet Take 1 tablet by mouth once daily. 90 tablet 3 06/19/2024 Active take 1 tablet by mouth once david y ezetimibe (ZETIA) 10 mg tablet Take 10 mg by mouth once daily. 0 Active Comment on above: Take 10 mg by mouth once daily. lisinopril 5 mg oral tablet (20 sources) Angiotensin Converting Enzyme Inhibitor Start: 04-11-2021 End: 08-22-2024 take 1 tablet by mouth once daily lisinopriL (PRINIVIL,ZESTRIL) 5 mg tablet Take 5 mg by mouth daily. 07/11/2021 Active Comment on above: Take 1 tablet by anuja th daily at bedtime. Take 1 tablet by anuja th once daily. MAGNESIUM GLUCONATE (20 sources) take 160 mg by mouth once daily MAGNESIUM GLUCONATE ORAL Take 160 mg by mouth once daily. 0 Suspended take 160 mg by mouth once daily MAGNESIUM GLUCONATE ORAL Take 160 mg by mouth once daily. 0 Active Comment on above: Take 160 mg by mouth once daily. 24 hr metoprolol succinate 25 mg extended release oral tablet (20 sources) beta-Adrenergic Jasbir Start: 02-20-2024 End: 05-16-2025 take 1 tablet by mouth once daily metoprolol succinate ER (TOPROL XL) 25 mg 24 hr tablet Take 1 tablet by mouth once daily. 90 tablet 3 05/16/2024 05/16/2025 Active Start: 06-06-2022 End: 06-06-2023 take 1 tablet [...] 06/01/2022 06/06/2022 Discontinued (Course of therapy completed) take 1 tablet by anuja th every twenty-four hours in the morning metoprolol succinate XL (TOPROL-XL) 25 mg 24 hr tablet Take 1 tablet (25 mg total) by mouth in the morning. Active Comment on above: Take 25 mg by mouth once daily. Take 1 tablet by anuja th once daily. perflutren lipid microspheres 1.3 mL in NaCl (PF) 0.9% 10 mL injection (DEFINITY) (20 sources) Start: 03-04-2024 End: 03-11-2024 perflutren lipid microspheres 1.3 mL in NaCl (PF) 0.9% 10 mL injection (DEFINITY) Start: 06-06-2022 End: 09-05-2023 perflutren lipid microsphere s 1.3 mL in NaCl (PF) 0.9% 10 mL injection (DEFINITY) Start: 06-15-2021 End: 09-14-2022 perflutren lipid microsphere s 1.3 mL in NaCl (PF) 0.9% 10 mL injection (DEFINITY) phenylephrine hydrochloride 25 mg/ml ophthalmic solution (2 sources) alpha-1 Adrenergic Agonist Start: 03-02-2024 End: 03-03-2024 PHENYLephrine 2.5 % 1 Drop (AK-DILATE, IFRAH-SYNEPHRINE) sildenafil 100 mg oral tablet (11 sources) Phosphodiesterase 5 Inhibitor Start: 07-07-2021 sildenafiL (VIAGRA) 100 mg tablet 20 mg one daily PRN 30 tablet 2 07/07/2021 Active Start: 12-07-2019 End: 01-18-2022 sildenafil (VIAGRA) 100 mg t ablet Take 100 mg by mouth as needed. 12/07/2019 01/18/2022 Discontinued (Discontinued by Patient) Comment on above: Take 100 mg by mouth as needed. 125 ml sodium chloride 9 mg/ml prefilled syringe (20 sources) Start: 03-04-2024 End: 03-11-2024 sodium chloride 0.9 % (flush) 10 mL (BD POSIFLUSH) Start: 12-12-2023 End: 12-19-2023 sodium chloride 0.9 % (flush ) 10 mL (BD POSIFLUSH) Start: 06-15-2021 End: 09-05-2023 sodium chloride 0.9 % (flush ) 10 mL (BD POSIFLUSH) thyroid (jail) 60 mg oral tablet (20 sources) Start: 05-25-2024 take 1 tablet by mouth once daily NUTRITION ASSOCIATE THYROID 60 mg tablet Take 1 tablet by mouth once daily. Give 1 tablet by mouth every 24 hours for give with 15mg =75mg total 05/25/2024 Active Start: 05-16-2024 End: 07-21-2024 take 1 tablet by mouth once daily, then take 1 tablet by mouth every twenty-four hours thyroid (NUTRITION ASSOCIATE THYROID) 15 mg tablet Take 1 tablet by mouth once daily. Give 1 tablet by mouth every 24 hours for give with 60mg=75mg total 05/25/2024 Active Start: 03-26-2023 take 1 tablet by mouth once da marin NUTRITION ASSOCIATE THYROID 15 mg tablet Take 15 mg by mouth once daily. 03/26/2023 Suspended take 1.25 tablets by mouth in the morning thyroid, pork, (NUTRITION ASSOCIATE THYROID) 60 mg tablet Take 1.25 tablets (75 mg total) by mouth in the morning. Active take 1 tablet by mouth once david y thyroid, pork, (ARMOUR THYROID) 90 mg tablet Take 90 mg by mouth daily. Active End: 05-16-2024 take 1 tablet by mouth once daily thyroid, pork, 60 mg tablet Take 60 mg by mouth once daily. 05/16/2024 Discontinued thyroid, pork, 6 0 mg tablet Take 75 mg by mouth once daily. 0 Active Comment on above: Take 90 mg by mouth once daily. Take 60 mg by mouth once daily. Take 75 mg by mouth once daily. as directed. torsemide 20 mg oral tablet (20 sources) Loop Diuretic Start: 07-26-2024 take 2 tablets by mouth twice daily torsemide (DEMADEX) 20 mg tablet Take 2 tablets by mouth two times a day. 60 tablet 3 07/26/2024 Active Start: 03-13-2019 End: 10-29-2023 take 1 tablet by mouth once daily as needed torsemide (DEMADEX) 10 mg tablet Take 10 mg by mouth daily as needed. 03/13/2019 Active Comment on above: [facility] tropicamide 10 mg/ml ophthalmic solution (2 sources) Anticholinergic Start: 03-02-20 End: 03-03-20 tropicamide 1 % 1 Drop (MYDRIACYL) cerfwuh-rpth-aqykf-o reg-capryl 100 mg-150 mg- 50 mg-150 mg capsule (6 sources) take 1 capsule by mouth once daily iaeisqh-zrih-nkvlb- oreg-capryl 100 mg-150 mg- 50 mg-150 mg capsule Take 1 capsule by mouth daily. Active take [address] [facility] once daily qqtpowv-vagp-vltjh-oreg-capryl 100 mg-15 0 mg- 50 mg-150 mg capsule Take 1 capsule by mouth daily. 0 Active ubidecarenone 100 mg oral ca psule (20 sources) coenzyme Q10 (CO Q-10) 100 mg cap capsule Take 100 mg by mouth once daily. Active coenzyme Q10 (CO Q-10) 100 mg cap capsule Take 100 mg by mouth two times a day. Active take 1 capsule by [facility] once in the morning coenzyme Q10 30 mg capsule Take 1 capsule (30 mg total) by mouth in the morning. Active End: 05-16-2024 take 1 capsule by mouth once daily ubidecarenone Q-10 (COENZYME Q-10) 10 mg cap Take 10 mg by mouth once daily. 05/16/2024 Discontinued (Erroneous entry) Comment on above: Take 10 mg by mouth once daily. zinc gluconate 50 mg oral tablet (6 sources) take 1 tablet by mouth once daily zinc gluconate 50 mg tablet Take 50 mg by mouth daily. Active Completed/Discontinued Medications Medication Drug Class(es) Dates Sig (Normalized) Sig (Original) acetaminophen 325 mg oral tablet (9 sources) Start: 07-03-2012 End: 06-06-2022 take 325-650 mg by mouth every four hours as needed acetaminophen 325 mg tablet Take 1-2 tablets by mouth every 4 hours as needed. 0 07/03/2012 06/06/2022 Discontinued Comment on above: Take 1-2 tablets by mouth every 4 hours as needed. aspirin 81 mg chewable tablet (20 sources) Platelet Aggregation Inhibitor, Nonsteroidal Anti-inflammatory Drug Start: 05-17-2024 End: 08-19-2024 take 1 tablet by mouth once daily aspirin 81 mg chewable tablet Take 1 tablet by mouth once daily. 05/17/2024 08/19/2024 Discontinued (Discontinued by another Health Care Provider) Start: 03-18-2024 End: 03-18-2025 take 1 tablet by mouth once daily aspirin 325 mg tablet Take 1 tablet by mouth once daily. 30 tablet 11 03/18/2024 03/18/2025 Suspended Start: 03-06-2024 End: 04-01-2024 take 4 tablets by mouth once daily aspirin 81 mg chewable tablet Take 4 tablets by mouth once daily for 26 doses. 104 tablet 0 03/06/2024 03/18/2024 Discontinued Start: 08-04-2012 End: 10-23-2021 take 1 tablet by mouth once daily aspirin, enteric coated (ECOTRIN LOW STRENGTH) 81 mg EC tablet Take 1 tablet by mouth once daily. 0 08/04/2012 10/23/2021 Discontinued aspirin 325 mg E C tablet Take 81 mg by mouth daily. Patient reports no longer taking. Active Comment on above: Take 1 tablet by anuja th once daily. bicalutamide 50 mg oral tablet (9 sources) Androgen Receptor Inhibitor Start: End: take 1 tablet by mouth once daily bicalutamide (CASODEX) 50 mg tablet Take 1 tablet by mouth once daily. 30 tablet 2 11/30/2021 06/06/2022 Discontinued Comment on above: Take 1 tablet by anuja th once daily. empagliflozin 10 mg oral tablet (1 source) Sodium-Glucose Cotransporter 2 Inhibitor Start: End: take 1 tablet by mouth once daily at breakfast empagliflozin (JARDIANCE) 10 mg tablet Take 1 tablet by mouth daily with breakfast. 90 tablet 3 06/01/2024 06/01/2024 Discontinued (Course of therapy completed) famotidine 20 mg oral tablet (9 sources) Histamine-2 Receptor Antagonist Start: End: take 1 tablet by mouth once daily famotidine (PEPCID) 20 mg tablet Take 1 tablet by mouth once daily. 30 tablet 3 07/27/2024 08/19/2024 Discontinued (Discontinued by another Health Care Provider) ferrous sulfate 325 mg oral tablet (11 sources) Start: End: take 1 tablet by mouth once [...] 1 tablet by anuja th once daily. folic acid 1 mg oral tablet (7 sources) Start: 05-17-2024 End: 07-21-2024 take 1 tablet by mouth once daily folic acid 1 mg tablet Take 1 tablet by mouth once daily. 05/17/2024 07/21/2024 Discontinued (Cost of medication) furosemide 40 mg oral tablet (20 sources) Loop Diuretic Start: 10-23-2023 End: 05-11-2025 take 1 tablet by mouth once daily furosemide (LASIX) 40 mg tablet Take 1 tablet by mouth once daily. 90 tablet 3 05/16/2024 07/21/2024 Discontinued (Course of therapy completed) Start: 10-23-2023 take 1 tablet by anuja th twice daily, then take 1 tablet by mouth once daily, then take 1 tablet by mouth every other day in the evening furosemide (LASIX) 40 mg tablet Take 40 mg by mouth two times a day. 40mg daily additional 40mg every other day in evening 0 10/23/2023 Suspended Comment on above: Take 40 mg by mouth once daily. Take 40 mg by mouth two times a day. nitroglycerin 0.4 mg sublingual tablet (20 sources) Nitrate Vasodilator nitroglycerin sublingual (NITROQUICK) 0.4 mg SL tablet as directed. Suspended Comment on above: as directed. pantoprazole 40 mg delayed release oral tablet (2 sources) Proton Pump Inhibitor Start: End: take 1 tablet by mouth twice daily before mealtime, then take 4 tablets by mouth in the evening pantoprazole DR (PROTONIX) 40 mg tablet Take 1 tablet by mouth two times a day before meals at 6 am and 4 pm. 05/16/2024 06/01/2024 Discontinued (Course of therapy completed) microencapsulated potassium chloride 20 meq extended release oral tablet (8 sources) Start: End: take 1 tablet by mouth once daily potassium chloride ER (KLOR-CON) 20 mEq tablet Take 1 tablet by mouth once daily. 30 tablet 5 02/07/2024 08/05/2024 Suspended rivaroxaban 15 mg oral tablet (12 sources) Factor Xa Inhibitor Start: End: take 1 tablet by mouth once daily at dinner rivaroxaban (XARELTO) 15 mg tablet Take 1 tablet by mouth daily with dinner. 90 tablet 3 2024 02/18/2025 Suspended spironolactone 25 mg oral tablet (20 sources) Aldosterone Antagonist Start: 024 End: 025 take 0.5 tablet by mouth once daily spironolactone (ALDACTONE) 25 mg tablet Take 0.5 tablets by mouth once daily. 45 tablet 3 08/20/2024 09/10/2024 Discontinued Start: 05-16-2024 End: 06-01-2024 take 0.5 tablet by mouth once daily spironolactone (ALDACTONE) 25 mg tablet Take 0.5 tablets by mouth once daily. 05/16/2024 06/01/2024 Discontinued (Course of therapy completed) Start: 11-25-2023 spironolactone (ALDACTONE) 25 mg tablet Take 12.5 mg by mouth every morning. 0 11/25/2023 Active Start: 06-01-2022 End: 04-26-2023 spironolactone (ALDACTONE) 2 5 mg tablet Take 12.5 mg by mouth once daily. 0 06/01/2022 04/26/2023 Discontinued (Discontinued by another Health Care Provider) Comment on above: Take 12.5 mg by mout h once daily. Take 12.5 mg by mout h every morning. therapeutic multivitamin w/ iron (THERAGRAN-M) 27-0.4 mg [...] 1 tablet by anuja th once daily. thiamine 50 mg oral tablet (7 sources) Start: 05-17-2024 End: 07-21-2024 take 1 tablet by mouth once daily thiamine (VITAMIN B1) 50 mg tablet Take 1 tablet by mouth once daily. 05/17/2024 07/21/2024 Discontinued (Cost of medication) Turmeric extract (20 sources) End: 10-25-2022 TURMERIC ORAL Take by mouth as needed. 10/25/2022 Discontinued (Course of therapy completed) End: 10-25-2022 TURMERIC ORAL Take by mouth as needed. 0 10/25/2022 Discontinued (Course of therapy completed) TURMERIC ORAL Ta ke by mouth. 0 Active Comment on above: Take by mouth. Take by mouth as nee ded. vitamin b12 0.1 mg oral tablet (7 sources) Vitamin B12 Start: 05-17-2024 End: 07-21-2024 take 1 tablet by mouth once daily cyanocobalamin (VITAMIN B-12) 100 mcg tab Take 1 tablet by mouth once daily. 05/17/2024 07/21/2024 Discontinued (Cost of medication) Zinc (20 sources) End: 10-25-2022 ZINC ORAL Take by mouth. 10/25/2022 Discontinued (Course of therapy completed) End: 10-25-2022 ZINC ORAL Take by mouth. 0 0 10/25/2022 Discontinued (Course of therapy completed) ZINC ORAL Take b y mouth. 0 Active Comment on above: Take by mouth. Problems Active Problems Problem Classification Problem Date Documented Date Episodic/Chronic Acute cerebrovascular disease (20 sources) Cerebrovascular accident; Translations: [Other cerebral infarction] Onset: 08-18-2021 Chronic Acute cerebrovascular disease (1 source) Acute cerebrovascular disease Onset: 02-26-2024 Cancer of prostate (1 source) History of malignant neoplasm of prostate; Translations: [Personal history of malignant neoplasm of prostate] 03-31-2024 Episodic Cardiac dysrhythmias (20 sources) Atrial fibrillation and flutter ; Translations: [Atrial fib/flutter, transient] Onset: 05-03-2012 08-24-2021 Chronic Cataract (1 source) Nuclear senile cataract; Translations: [Age-related nuclear cataract, bilateral] 03-02-2024 Chronic Chronic kidney disease (20 sources) Chronic kidney disease, unspecified; Translations: [Chronic kidney disease stage 3B ] Onset: 05-18-2022 01-10-2024 Chronic Chronic kidney disease (4 sources) Chronic kidney disease; Translations: [Chronic kidney disease, stage 3 unspecified] Onset: 10-10-2023 Complication of device; implant or graft (20 sources) Arteriosclerosis of coronary artery bypass graft; Translations: [Atherosclerosis of coronary artery bypass graft(s) without angina pectoris] Onset: 11-17-2012 Chronic Conduction disorders (5 sources) Presence of automatic (implantable) cardiac defibrillator; Translations: [Patient encounter status] Onset: 07-10-2022 Chronic Congestive heart failure; nonhypertensive (20 sources) Acute systolic heart failure; Translations: [Acute systolic (congestive) heart failure] Onset: 05-01-2012 Chronic Coronary atherosclerosis and other heart disease (20 sources) Coronary atherosclerosis; Translations: [Atherosclerotic heart disease of [place] coronary artery without angina pectoris] Onset: 04-28-2012 09-11-2021 Chronic Coronary atherosclerosis and other heart disease (6 sources) Presence of aortocoronary bypass graft; Translations: [Presence of coronary angioplasty implant and graft] Onset: 05-15-2022 Episodic Deficiency and other anemia (20 sources) Anemia due to blood loss; Translations: [Iron deficiency anemia secondary to blood loss (chronic)] Onset: 05-09-2024 05-12-2024 Chronic Deficiency and other anemia (20 sources) Anemia of chronic disease; Translations: [Anemia in other chronic diseases classified elsewhere] Onset: 05-15-2024 05-15-2024 Chronic Deficiency and other anemia (20 sources) Anemia due to chronic blood loss; Translations: [Iron deficiency anemia secondary to blood loss (chronic)] Onset: 05-16-2024 05-16-2024 Chronic Deficiency and other anemia (1 source) Anemia in other chronic diseases classified elsewhere; Translations: [Anemia of chronic disease] Onset: 05-15-2024 Chronic Deficiency and other anemia (5 sources) Anemia, unspecified; Translations: [ANEMIA UNSPECIFIED] Onset: 05-14-2022 Episodic Diabetes mellitus with complications (20 sources) Type 2 diabetes mellitus; Translations: [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 kidney disease] Onset: 04-26-2023 04-26-2023 Chronic Disorders of lipid metabolism (20 sources) Hyperlipidemia; Translations: [Hyperlipidemia, unspecified] Onset: 04-28-2012 Chronic Disorders of teeth and jaw (1 source) Dental caries; Translations: [Dental caries, unspecified] 02-17-2024 Episodic Esophageal disorders (1 source) Gastro-esophageal reflux disease without esophagitis; Translations: [GERD WITHOUT ESOPHAGITIS] Onset: 05-18-2022 Chronic Essential hypertension (6 sources) Essential hypertension; Translations: [Essential (primary) hypertension] Onset: 10-23-2023 10-30-2023 Chronic Heart valve disorders (20 sources) Mitral valve regurgitation; Translations: [Nonrheumatic mitral (valve) insufficiency] Onset: 12-02-2023 Chronic Hypertension with complications and secondary hypertension (7 sources) Hypertensive heart disease with heart failure; Translations: [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 disease, or unspecified chronic kidney disease] Onset: 06-27-2022 Chronic Nutritional deficiencies (20 sources) Deficiency of macronutrients; Translations: [Unspecified severe protein-calorie malnutrition] Onset: 12-26-2023 12-26-2023 Chronic Occlusion or stenosis of precerebral arteries (20 sources) Carotid artery stenosis; Translations: [Occlusion and stenosis of unspecified carotid artery] Onset: 05-01-2012 09-11-2021 Chronic Other and ill-defined heart disease (20 sources) Mural thrombus of left ventricle; Translations: [Intracardiac thrombosis, not elsewhere classified] Onset: 05-06-2024 05-06-2024 Chronic Other circulatory disease (2 sources) Presence of other cardiac implants and grafts; Translations: [S/P mitral valve clip implantation] Onset: 03-30-2024 Chronic Other circulatory disease (3 sources) Personal history of transient ischemic attack (TIA), and cerebral infarction without residual deficits; Translations: [PERS HX TIA AND CI NO RESID DEFICIT] Onset: 07-10-2022 Episodic Other male genital disorders (6 sources) Erectile dysfunction co-occurrent and due to arterial insufficiency; Translations: [Erectile dysfunction due to arterial insufficiency] Onset: 09-28-2019 10-12-2019 Chronic Other screening for suspected conditions (not mental disorders or infectious disease) (1 source) Blood chemistry abnormal; Translations: [Abnormal finding of blood chemistry, unspecified] Episodic Adelina-; endo-; and myocarditis; cardiomyopathy (except that caused by tuberculosis or sexually transmitted disease) (20 sources) Cardiomyopathy; Translations: [Other cardiomyopathies] Onset: 01-10-2024 01-10-2024 Chronic Peripheral and visceral atherosclerosis (20 sources) Peripheral vascular disease; Translations: [Peripheral vascular disease, unspecified] Onset: 11-17-2012 04-26-2023 Chronic Thyroid disorders (6 sources) Hypothyroidism; Translations: [Hypothyroidism, unspecified] Onset: 05-18-2022 Chronic Transient cerebral ischemia (20 sources) Amaurosis fugax; Translations: [Amaurosis fugax] Onset: 02-26-2024 02-27-2024 Chronic Unclassified (20 sources) SUMMARY Onset: 04-28-2012 Unclassified (20 sources) Sweating; Translations: [Sweating] Onset: 11-17-2012 Unclassified (1 source) CONTACT W/AND (SUSP) EXPOS COVID-19; Translations: [CONTACT W/AND (SUSP) EXPOS COVID-19] Onset: 05-18-2022 Unclassified (1 source) Low back pain, unspecified; Translations: [Low back pain, unspecified] Onset: 08-27-2024 Unclassified (1 source) Blurred Vision Onset: 02-26-2024 Past or Other Problems Problem Classification Problem Date Documented Da te Episodic/Chronic Acute and unspecified renal failure (3 sources) Acute kidney failure, unspecified; Translations: [ACUTE KIDNEY FAILURE UNSPECIFIED] Onset: 2 Episodic Acute myocardial infarction (20 sources) Non-ST elevation (NSTEMI) myocardial infarction; Translations: [True posterior myocardial infarction] Onset: 2 Resolved: 2 Chronic Acute posthemorrhagic anemia (20 sources) Acute posthemorrhagic anemia; Translations: [Acute posthemorrhagic anemia] Onset: 4 05-06-2024 Episodic Cancer of prostate (20 sources) Malignant tumor of prostate; Translations: [Malignant neoplasm of prostate] Onset: 8 Resolved: 4 Chronic Cardiac dysrhythmias (20 sources) Tachycardia; Translations: [Tachycardia, unspecified] Onset: 2 Resolved: 2 Episodic Coagulation and hemorrhagic disorders (20 sources) Thrombocytopenic disorder; Translations: [Thrombocytopenia, unspecified] Onset: 2 Resolved: 2 Chronic Diabetes mellitus without complication (20 sources) Metabolic stress hyperglycemia; Translations: [Hyperglycemia, unspecified] Onset: 2 Resolved: 2 Episodic Fluid and electrolyte disorders (1 source) Dehydration; Translations: [DEHYDRATION] Onset: 2 Episodic Gastrointestinal hemorrhage (20 sources) Gastrointestinal hemorrhage, unspecified; Translations: [Gastrointestinal hemorrhage] Onset: 4 05-11-2024 Episodic Malaise and fatigue (20 sources) Other fatigue; Translations: [Weakness] Onset: 2 Episodic Mood disorders (6 sources) Mood disorders Onset: 1 08-17-2021 Other aftercare (1 source) Other snf (current) drug therapy; Translations: [OTH PREPARATION OPERATOR CURRENT DRUG THERAPY] Onset: 2 Episodic Other aftercare (1 source) watermelon inspector (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) use of anticoagulants; Translations: [MCFP CURRNT USE ANTICOAGULANTS] Onset: 2 Episodic Other circulatory disease (20 sources) Low blood pressure; Translations: [Hypotension, unspecified] Onset: 2 Resolved: 2 Episodic Other hematologic conditions (1 source) Other specified abnormalities of plasma proteins; Translations: [OTH SPEC ABNORM PLASMA PROTEINS] Onset: 2 Episodic Other lower respiratory disease (20 sources) Dyspnea; Translations: [Shortness of breath] Onset: 4 12-12-2023 Episodic Other lower respiratory disease (2 sources) Dyspnea on exertion; Translations: [Other forms of dyspnea] 02-04-2024 Episodic Other lower respiratory disease (2 sources) Other forms of dyspnea; Translations: [SANTILLAN (dyspnea on exertion)] Onset: 4 Episodic Other lower respiratory disease (2 sources) Shortness of breath; Translations: [Shortness of breath] Onset: 4 Episodic Other nervous system disorders (20 sources) Postoperative pain ; Translations: [Other acute postprocedural pain] Onset: 2 Resolved: 2 Episodic Other upper respiratory infections (2 sources) Sore throat symptom; Translations: [Acute pharyngitis, unspecified] Onset: 4 12-26-2023 Episodic Pleurisy; pneumothorax; pulmonary collapse (20 sources) Pleural effusion; Translations: [Pleural effusion, not elsewhere classified] Onset: 4 05-08-2024 Episodic Residual codes; unclassified (20 sources) History of repair of mitral valve; Translations: [Other specified postprocedural states] Onset: 4 02-20-2024 Episodic Residual codes; unclassified (20 sources) At risk of delirium; Translations: [Other specified personal risk factors, not elsewhere classified] Onset: 4 05-09-2024 Episodic Residual codes; unclassified (2 sources) Other specified postprocedural states; Translations: [S/P mitral valve clip implantation] Onset: 4 Episodic Respiratory failure; insufficiency; arrest (adult) (20 sources) Ventilator finding; Translations: [Dependence on respirator [ventilator] status] Onset: 2 Resolved: 2 Chronic Screening and history of mental health and substance abuse codes (1 source) Personal history of nicotine dependence; Translations: [PERSONAL HISTORY OF NICOTINE DEPEND] Onset: 2 Episodic Syncope (20 sources) Syncope; Translations: [Syncope and collapse] Onset: 9 03-18-2019 Episodic Results Test Name Value Interpretation Reference Range Facility Basic metabolic 2000 panelon 09-10-2024 Anion gap [Moles/Vol] 12 mmol/L Normal 8-15 [facility] Comment on above: Order Comment: Rozi may Type: BLOOD SPECIMENOrdering Facility: [facility] Address: [address] [place] [address] Performed By: #### 2 4321-2 ####[facility] LABCLIA [id number] [place] [address] Calcium [Mass/Vol] 8.7 mg/dL Normal 8.5-10.2 [facility] Comment on above: Order Comment: Speci men Type: BLOOD SPECIMENOrdering Facility: [facility] Address: [address] [place] [address] Performed By: #### 2 4321-2 ####[facility] LABCLIA [id number] [place] [address] Chloride [Moles/Vol] 99 mmol/L Normal 98-107 [facility] Comment on above: Order Comment: Speci men Type: BLOOD SPECIMENOrdering Facility: [facility] Address: [address] [place], [place] [address] Performed By: #### 2 4321-2 ####[facility] LABCLIA [id number] [place] [address] CO2 [Moles/Vol] 26 mmol/L Normal 22-30 [facility] Comment on above: Order Comment: Speci men Type: BLOOD SPECIMENOrdering Facility: [facility] Address: [address] [place] [address] Performed By: #### 2 4321-2 ####[facility] LABCLIA [id number] [place] [address] Creatinine [Mass/Vol] 2.53 mg/dL High 0.73-1.22 [facility] Comment on above: Order Comment: Speci men Type: BLOOD SPECIMENOrdering Facility: [facility] Address: [address] [place] [address] Performed By: #### 2 4321-2 ####[facility] LABCLIA [id number] [place] [address] Creatinine and Glomerular filtration rate.predicted panel (S/P/Bld) 25 mL/min/1.73m??? Low >=60 [facility] Comment on above: Order Comment: Speci men Type: BLOOD SPECIMENOrdering Facility: [facility] Address: [address] [place] [address] Result Comment: Etta mated Glomerular Filtration Rate [...] reflect actual GFR. Performed By: #### 2 4321-2 ####[facility] LABCLIA [id number] [place] [address] Glucose [Mass/Vol] 111 mg/dL High 74-99 [facility] Comment on above: Order Comment: Speci men Type: BLOOD SPECIMENOrdering Facility: [facility] Address: [address] [place] [address] Result Comment: The [place] [employer] (ADA) provides guidance for cutoff values for fasting glucose and random glucose. The ADA defines fasting as no caloric intake for at least 8 hours. Fasting plasma glucose results between 100 to 125 mg/dL indicate increased risk for diabetes (prediabetes).Fasting plasma glucose results greater than or equal to 126 mg/dL meet the criteria for diagnosis of diabetes. In the absence of unequivocal hyperglycemia, results should be confirmed by repeat testing. In a patient with classic symptoms of hyperglycemia or hyperglycemic crisis, random plasma glucose results greater than or equal to 200 mg/dL meet the criteria for diagnosis of diabetes.Reference: Standards of Medical Care in Diabetes 2016, [place] [employer]. Diabetes Care. 2016.39(Suppl 1). Performed By: #### 2 4321-2 ####[facility] LABCLIA [id number] [place] [address] Potassium [Moles/Vol] 3.9 mmol/L Normal 3.7-5.1 [facility] Comment on above: Order Comment: Speci men Type: BLOOD SPECIMENOrdering Facility: [facility] Address: [address] [place], [place] [address] Performed By: #### 2 4321-2 ####[facility] LABCLIA [id number] [place] [address] Sodium [Moles/Vol] 137 mmol/L Normal 136-144 [facility] Comment on above: Order Comment: Speci men Type: BLOOD SPECIMENOrdering Facility: [facility] Address: [address] [place] [address] Performed By: #### 2 4321-2 ####[facility] LABCLIA [id number] [place] [address] Urea nitrogen [Mass/Vol] 57 mg/dL High 9-24 [facility] Comment on above: Order Comment: Speci men Type: BLOOD SPECIMENOrdering Facility: [facility] Address: [address] [place] [id number] Performed By: #### 2 4321-2 ####[facility] LABCLIA [id number] [place] [address] CNPNon 09-10-2024 CNPN Normal [facility] NT-proBNP SerPl-mCncon 09-10 Natriuretic peptide.B prohormone N-Terminal [Mass/Vol] 70917 pg/mL High <450 [facility] Comment on above: Order Comment: Speci men Type: BLOOD SPECIMENOrdering Facility: [facility] Address: [address] [place] [address] Performed By: #### 3 3762-6 ####[facility] LABCLIA [id number] [place] [address] [place] PSA SerPl-ncon 09-10-2024 Prostate specific Ag [Mass/Vol] ng/mL Normal <2.60 [facility] Comment on above: Order Comment: Speci men Type: BLOOD SPECIMENOrdering Facility: [facility] Address: [address] [place] [address] Result Comment: Tota l PSA test methodology used is the Electrochemiluminescence Immunoassay by [employer]. Total PSA values by differing methodologies cannot be interchanged. Performed By: #### 2 857-1 ####[facility] LABCLIA [id number] [place] [address] [place] Urinalysis complete panel (U )on 09-10-2024 Bacteria LM.HPF (Urine sed) [#/Area] Negative Normal Negative [facility] Comment on above: Order Comment: Speci men Type: URINE SPECIMENOrdering Facility: [facility] Address: [address] [place] [address] Performed By: #### 2 4356-8 ####[facility] LABCLIA [id number] [place] [address] [place] Bilirubin Ql (U) Negative Normal Negative [facility] Comment on above: Order Comment: Speci men Type: URINE SPECIMENOrdering Facility: [facility] Address: [address] [place] [address] Performed By: #### 2 4356-8 ####[facility] LABCLIA [id number] [address] [address] [place] Clarity (Unsp spec) Clear Normal Clear [facility] Comment on above: Order Comment: Speci men Type: URINE SPECIMENOrdering Facility: [facility] Address: [address] [place] [address] Performed By: #### 2 4356-8 ####[facility] LABCLIA [id number] [place] [address] [place] Color (U) Yellow Normal Yellow [facility] Comment on above: Order Comment: Speci men Type: URINE SPECIMENOrdering Facility: [facility] Address: [address] [place] [address] Performed By: #### 2 4356-8 ####[facility] LABCLIA [id number] [place] [address] [place] Epithelial cells LM.HPF (Urine sed) [#/Area] None Seen Normal [facility] Comment on above: Order Comment: Speci men Type: URINE SPECIMENOrdering Facility: [facility] Address: [address] [place] [address] Performed By: #### 2 4356-8 ####[facility] LABCLIA [id number] [place] [address] [place] Glucose Test strip (U) [Mass/Vol] Trace Abnormal Negative [facility] Comment on above: Order Comment: Speci men Type: URINE SPECIMENOrdering Facility: [facility] Address: [address] [place] [address] Performed By: #### 2 4356-8 ####[facility] LABCLIA [id number] [place] [id number] [place] Hemoglobin Ql (U) Negative Normal Negative [facility] Comment on above: Order Comment: Speci men Type: URINE SPECIMENOrdering Facility: [facility] Address: [address] [place] [address] Performed By: #### 2 4356-8 ####[facility] LABCLIA [id number] [place] [address] [place] Hyaline casts (Urine sed) [#/Area] 0 /[LPF] Normal 0 /LPF [facility] Comment on above: Order Comment: Speci men Type: URINE SPECIMENOrdering Facility: [facility] Address: [address] [place] [address] Performed By: #### 2 4356-8 ####[facility] LABCLIA [id number] [place] [address] [place] Ketones Ql (U) Negative Normal Negative [facility] Comment on above: Order Comment: Speci men Type: URINE SPECIMENOrdering Facility: [facility] Address: [address] [place] [address] Performed By: #### 2 4356-8 ####[facility] LABCLIA [id number] [place] [address] [place] Leukocyte esterase Test strip Ql (U) Negative Normal Negative [facility] Comment on above: Order Comment: Speci men Type: URINE SPECIMENOrdering Facility: [facility] Address: [address] [place] [address] Performed By: #### 2 4356-8 ####[facility] LABCLIA [id number] [place] [address] [place] Nitrite Ql (U) Negative Normal Negative [facility] Comment on above: Order Comment: Speci men Type: URINE SPECIMENOrdering Facility: [facility] Address: [address] [place] [address] Performed By: #### 2 4356-8 ####[facility] [facility] [id number] [place] [address] [place] pH (U) 7.0 [pH] Normal <8.5 [facility] Comment on above: Order Comment: Speci men Type: URINE SPECIMENOrdering Facility: [facility] Address: [address] [place] [address] Performed By: #### 2 4356-8 ####[facility] LABIA [id number] [place] [address] [place] Protein (U) [Mass/Vol] 1+ Abnormal Negative [facility] Comment on above: Order Comment: Speci men Type: URINE SPECIMENOrdering Facility: [facility] Address: [address] [place] [address] Performed By: #### 2 4356-8 ####[facility] LABIA [id number] [place] [address] [place] RBC LM.HPF (Urine sed) [#/Area] 0-2 /HPF Normal 0-2 /HPF [facility] Comment on above: Order Comment: Speci men Type: URINE SPECIMENOrdering Facility: [facility] Address: [address] [place] [address] Performed By: #### 2 4356-8 ####[facility] LABIA [id number] [place] [address] [place] Specific gravity (U) [Rel density] 1.011 Normal 1.005-1.030 [facility] Comment on above: Order Comment: Speci men Type: URINE SPECIMENOrdering Facility: [facility] Address: [address] [place] [address] Performed By: #### 2 4356-8 ####[facility] LABIA [id number] [place] [id number] [place] Urobilinogen Ql (U) 0.2 EU/dL Normal 0.2-1.0 EU/dL [facility] Comment on above: Order Comment: Speci men Type: URINE SPECIMENOrdering Facility: [facility] Address: [address] [place] [address] Performed By: #### 2 4356-8 ####[facility] LABCLIA [id number] [address] [address] [place] WBC LM.HPF (Urine sed) [#/Area] 0-5 /HPF Normal 0-5 /HPF [facility] Comment on above: Order Comment: Speci men Type: URINE SPECIMENOrdering Facility: [facility] Address: [address] [place] [address] Performed By: #### 2 4356-8 ####[facility] LABCLIA [id number] [address] [address] [place] CNPNon 09-07-2024 CNPN Normal [facility] CNPNon 09-03-2024 CNPN Normal [facility] Basic metabolic 2000 panelon 08-31-2024 Anion gap [Moles/Vol] 16 mmol/L High 8-15 [facility] Comment on above: Order Comment: Speci men Type: BLOOD SPECIMENOrdering Facility: [facility] Address: [address] [place] [address] Performed By: #### 2 4321-2 ####[facility] LABCLIA [id number] [place] [address] Calcium [Mass/Vol] 9.4 mg/dL Normal 8.5-10.2 [facility] Comment on above: Order Comment: Speci men Type: BLOOD SPECIMENOrdering Facility: [facility] Address: [address] [place] [address] Performed By: #### 2 4321-2 ####[facility] LABIA [id number] [place] [address] Chloride [Moles/Vol] 96 mmol/L Low 98-107 [facility] Comment on above: Order Comment: Speci men Type: BLOOD SPECIMENOrdering Facility: [facility] Address: [address] [place] [address] Performed By: #### 2 4321-2 ####[facility] LABCLIA [id number] [place] [address] CO2 [Moles/Vol] 22 mmol/L Normal 22-30 [facility] Comment on above: Order Comment: Speci men Type: BLOOD SPECIMENOrdering Facility: [facility] Address: [address] [place] [address] Performed By: #### 2 4321-2 ####[facility] LABCLIA [id number] [place] [address] Creatinine [Mass/Vol] 2.98 mg/dL High 0.73-1.22 [facility] Comment on above: Order Comment: Speci men Type: BLOOD SPECIMENOrdering Facility: [facility] Address: [address] [place] [address] Performed By: #### 2 4321-2 ####[facility] LABCLIA [id number] [place] [address] Creatinine and Glomerular filtration rate.predicted panel (S/P/Bld) 20 mL/min/1.73m??? Low >=60 [facility] Comment on above: Order Comment: Speci men Type: BLOOD SPECIMENOrdering Facility: [facility] Address: [address] [place] [address] Result Comment: Etta mated Glomerular Filtration Rate [...] reflect actual GFR. Performed By: #### 2 4321-2 ####[facility] LABCLIA [id number] [place] [address] Glucose [Mass/Vol] 112 mg/dL High 74-99 [facility] Comment on above: Order Comment: Speci men Type: BLOOD SPECIMENOrdering Facility: [facility] Address: [address] [place] [address] Result Comment: The [place] [employer] (ADA) provides guidance for cutoff values for fasting glucose and random glucose. The ADA defines fasting as no caloric intake for at least 8 hours. Fasting plasma glucose results between 100 to 125 mg/dL indicate increased risk for diabetes (prediabetes).Fasting plasma glucose results greater than or equal to 126 mg/dL meet the criteria for diagnosis of diabetes. In the absence of unequivocal hyperglycemia, results should be confirmed by repeat testing. In a patient with classic symptoms of hyperglycemia or hyperglycemic crisis, random plasma glucose results greater than or equal to 200 mg/dL meet the criteria for diagnosis of diabetes.Reference: Standards of Medical Care in Diabetes 2016, [place] [employer]. Diabetes Care. 2016.39(Suppl 1). Performed By: #### 2 4321-2 ####[facility] LABCLIA [id number] [place] [address] Potassium [Moles/Vol] 4.3 mmol/L Normal 3.7-5.1 [facility] Comment on above: Order Comment: Speci men Type: BLOOD SPECIMENOrdering Facility: [facility] Address: [address] [place] [address] Performed By: #### 2 4321-2 ####[facility] LABCLIA [id number] [place] [address] Sodium [Moles/Vol] 134 mmol/L Low 136-144 [facility] Comment on above: Order Comment: Speci men Type: BLOOD SPECIMENOrdering Facility: [facility] Address: [address] [place] [address] Performed By: #### 2 4321-2 ####[facility] LABCLIA [id number] [place] [address] Urea nitrogen [Mass/Vol] 71 mg/dL High 9-24 [facility] Comment on above: Order Comment: Speci men Type: BLOOD SPECIMENOrdering Facility: [facility] Address: [address] [place] [address] Performed By: #### 2 4321-2 ####[facility] LABCLIA [id number] [place] [address] CBC W Auto Differential pane l (Bld)on 08-31-2024 Basophils (Bld) [#/Vol] 0.04 10*3/uL Normal <0.11 [facility] Comment on above: Order Comment: Speci men Type: BLOOD SPECIMENOrdering Facility: [facility] Address: [address] [place] [address] Performed By: #### 5 7021-8 ####[facility] LABCLIA [id number] [place] [address] Basophils/100 WBC (Bld) 0.6 % Normal [facility] Comment on above: Order Comment: Speci men Type: BLOOD SPECIMENOrdering Facility: [facility] Address: [address] [place] [address] Performed By: #### 5 7021-8 ####[facility] LABCLIA [id number] [place] [address] Differential cell count method Nom (Bld) Auto Normal [facility] Comment on above: Order Comment: Speci men Type: BLOOD SPECIMENOrdering Facility: [facility] Address: [address] [place] [address] Performed By: #### 5 7021-8 ####[facility] LABCLIA [id number] [place] [address] Eosinophils (Bld) [#/Vol] 0.03 10*3/uL Normal <0.46 [facility] Comment on above: Order Comment: Speci men Type: BLOOD SPECIMENOrdering Facility: [facility] Address: [address] [place] [address] Performed By: #### 5 7021-8 ####[facility] LABCLIA [id number] [place] [address] Eosinophils/100 WBC (Bld) 0.5 % Normal [facility] Comment on above: Order Comment: Speci men Type: BLOOD SPECIMENOrdering Facility: [facility] Address: [address] [place] [address] Performed By: #### 5 7021-8 ####[facility] LABCLIA [id number] [place] [address] Erythrocyte distribution width (RBC) [Ratio] 18.5 % High 11.5-15.0 [facility] Comment on above: Order Comment: Speci men Type: BLOOD SPECIMENOrdering Facility: [facility] Address: [address] [place] [address] Performed By: #### 5 7021-8 ####[facility] LABCLIA [id number] [place] [address] Hematocrit (Bld) [Volume fraction] 33.8 % Low 39.0-51.0 [facility] Comment on above: Order Comment: Speci men Type: BLOOD SPECIMENOrdering Facility: [facility] Address: [address] [place] [address] Performed By: #### 5 7021-8 ####[facility] LABCLIA [id number] [place] [address] Hemoglobin (Bld) [Mass/Vol] 10.5 g/dL Low 13.0-17.0 [facility] Comment on above: Order Comment: Speci men Type: BLOOD SPECIMENOrdering Facility: [facility] Address: [address] [place] [address] Performed By: #### 5 7021-8 ####[facility] LABCLIA [id number] [place] [address] Immature granulocytes (Bld) [#/Vol] 10*3/uL Normal <0.10 [facility] Comment on above: Order Comment: Speci men Type: BLOOD SPECIMENOrdering Facility: [facility] Address: [address] [place] [address] Performed By: #### 5 7021-8 ####[facility] LABCLIA [id number] [place] [address] Immature granulocytes/100 WBC (Bld) 0.3 % Normal [facility] Comment on above: Order Comment: Speci men Type: BLOOD SPECIMENOrdering Facility: [facility] Address: [address] [place] [address] Performed By: #### 5 7021-8 ####[facility] LABCLIA [id number] [place] [address] Lymphocytes (Bld) [#/Vol] 0.74 10*3/uL Low 1.00-4.00 [facility] Comment on above: Order Comment: Speci men Type: BLOOD SPECIMENOrdering Facility: [facility] Address: [address] [place] [address] Performed By: #### 5 7021-8 ####[facility] LABCLIA [id number] [place] [address] Lymphocytes/100 WBC (Bld) 11.8 % Normal [facility] Comment on above: Order Comment: Speci men Type: BLOOD SPECIMENOrdering Facility: [facility] Address: [address] [place] [address] Performed By: #### 5 7021-8 ####[facility] LABCLIA [id number] [place] [address] MCH (RBC) [Entitic mass] 27.9 pg Normal 26.0-34.0 [facility] Comment on above: Order Comment: Speci men Type: BLOOD SPECIMENOrdering Facility: [facility] Address: [address] [place] [address] Performed By: #### 5 7021-8 ####[facility] LABIA [id number] [place] [address] MCHC (RBC) [Mass/Vol] 31.1 g/dL Normal 30.5-36.0 [facility] Comment on above: Order Comment: Speci men Type: BLOOD SPECIMENOrdering Facility: [facility] Address: [address] [place] [address] Performed By: #### 5 7021-8 ####[facility] LABCLIA [id number] [place] [address] MCV (RBC) [Entitic vol] 89.7 fL Normal 80.0-100.0 [facility] Comment on above: Order Comment: Speci men Type: BLOOD SPECIMENOrdering Facility: [facility] Address: [address] [place] [address] Performed By: #### 5 7021-8 ####[facility] LABCLIA [id number] [place] [address] Monocytes (Bld) [#/Vol] 0.75 10*3/uL Normal <0.87 [facility] Comment on above: Order Comment: Speci men Type: BLOOD SPECIMENOrdering Facility: [facility] Address: [address] [place] [address] Performed By: #### 5 7021-8 ####[facility] LABCLIA [id number] [place] [address] Monocytes/100 WBC (Bld) 11.9 % Normal [facility] Comment on above: Order Comment: Speci men Type: BLOOD SPECIMENOrdering Facility: [facility] Address: [address] [place] [address] Performed By: #### 5 7021-8 ####[facility] LABCLIA [id number] [place] [address] Neutrophils (Bld) [#/Vol] 4.71 10*3/uL Normal 1.45-7.50 [facility] Comment on above: Order Comment: Speci men Type: BLOOD SPECIMENOrdering Facility: [facility] Address: [address] [place] [address] Performed By: #### 5 7021-8 ####[facility] LABCLIA [id number] [place] [address] Neutrophils/100 WBC (Bld) 74.9 % Normal [facility] Comment on above: Order Comment: Speci men Type: BLOOD SPECIMENOrdering Facility: [facility] Address: [address] [place] [address] Performed By: #### 5 7021-8 ####[facility] LABCLIA [id number] [place] [address] Nucleated RBC (Bld) [#/Vol] 0.02 10*3/uL High <0.01 [facility] Comment on above: Order Comment: Speci men Type: BLOOD SPECIMENOrdering Facility: [facility] Address: [address] [place] [address] Performed By: #### 5 7021-8 ####[facility] LABCLIA [id number] [place] [address] Nucleated RBC/100 WBC (Bld) [Ratio] 0.3 /100 WBC Normal [facility] Comment on above: Order Comment: Speci men Type: BLOOD SPECIMENOrdering Facility: [facility] Address: [address] [place] [address] Performed By: #### 5 7021-8 ####[facility] LABCLIA [id number] [place] [address] Platelet mean volume (Bld) [Entitic vol] 10.4 fL Normal 9.0-12.7 [facility] Comment on above: Order Comment: Speci men Type: BLOOD SPECIMENOrdering Facility: [facility] Address: [address] [place] [address] Performed By: #### 5 7021-8 ####[facility] LABCLIA [id number] [place] [address] Platelets (Bld) [#/Vol] 195 10*3/uL Normal 150-400 [facility] Comment on above: Order Comment: Speci men Type: BLOOD SPECIMENOrdering Facility: [facility] Address: [address] [place] [address] Performed By: #### 5 7021-8 ####[facility] LABCLIA [id number] [place] [address] RBC (Bld) [#/Vol] 3.77 10*6/uL Low 4.20-6.00 [facility] Comment on above: Order Comment: Speci men Type: BLOOD SPECIMENOrdering Facility: [facility] Address: [address] [place] [address] Performed By: #### 5 7021-8 ####[facility] LABCLIA [id number] [place] [address] WBC (Bld) [#/Vol] 6.29 10*3/uL Normal 3.70-11.00 [facility] Comment on above: Order Comment: Speci men Type: BLOOD SPECIMENOrdering Facility: [facility] Address: [address] [place] [address] Performed By: #### 5 7021-8 ####[facility] LABIA [id number] [place] [address] NT-proBNP [facility] 08-31 Natriuretic peptide.B prohormone N-Terminal [Mass/Vol] 05754 pg/mL High <450 [facility] Comment on above: Order Comment: Speci men Type: BLOOD SPECIMENOrdering Facility: [facility] Address: [address] [place] [address] Performed By: #### 3 3762-6 ####[facility] LABCLIA [id number] [facility] [id number] [address] [place] CNPNon 08-28-2024 CNPN Normal [facility] Basic metabolic 2000 panelon 08-19-2024 Anion gap [Moles/Vol] 14 mmol/L Normal 8-15 [facility] Comment on above: Order Comment: Speci men Type: BLOOD SPECIMENOrdering Facility: [facility] Address: [address] [place] [address] Performed By: #### 2 4321-2, 28568-5 ####[facility] LABCLIA [id number] [place] [address] [place] Calcium [Mass/Vol] 9.1 mg/dL Normal 8.5-10.2 [facility] Comment on above: Order Comment: Speci men Type: BLOOD SPECIMENOrdering Facility: [facility] Address: [address] [place] [address] Performed By: #### 2 4321-2, 34887-9 ####[facility] LABCLIA [id number] [place] [address] [place] Chloride [Moles/Vol] 100 mmol/L Normal 98-107 [facility] Comment on above: Order Comment: Speci men Type: BLOOD SPECIMENOrdering Facility: [facility] Address: [address] [place] [address] Performed By: #### 2 4321-2, 09386-6 ####[facility] LABCLIA [id number] [place] [address] [place] CO2 [Moles/Vol] 28 mmol/L Normal 22-30 [facility] Comment on above: Order Comment: Speci men Type: BLOOD SPECIMENOrdering Facility: [facility] Address: [address] [place] [address] Performed By: #### 2 4321-2, 11907-0 ####[facility] LABCLIA [id number] [place] [address] [place] Creatinine [Mass/Vol] 2.05 mg/dL High 0.73-1.22 [facility] Comment on above: Order Comment: Speci men Type: BLOOD SPECIMENOrdering Facility: [facility] Address: [address] [place] [address] Performed By: #### 2 4321-2, 38580-6 ####[facility] LABCLIA [id number] [place] [address] [place] Creatinine and Glomerular filtration rate.predicted panel (S/P/Bld) 32 mL/min/1.73m??? Low >=60 [facility] Comment on above: Order Comment: Dylan olvera Type: BLOOD SPECIMENOrdering Facility: [facility] Address: [address] [place] [address] Result Comment: Etta mated Glomerular Filtration Rate [...] actual GFR. Performed By: #### 2 4321-2, 18375-9 ####[facility] LABCLIA [id number] [place] [address] [place] Glucose [Mass/Vol] 99 mg/dL Normal 74-99 [facility] Comment on above: Order Comment: Dylan olvera Type: BLOOD SPECIMENOrdering Facility: [facility] Address: [address] [place] [address] Result Comment: The [place] [employer] (ADA) provides guidance for cutoff values for fasting glucose and random glucose. The ADA defines fasting as no caloric intake for at least 8 hours. Fasting plasma glucose results between 100 to 125 mg/dL indicate increased risk for diabetes (prediabetes).Fasting plasma glucose results greater than or equal to 126 mg/dL meet the criteria for diagnosis of diabetes. In the absence of unequivocal hyperglycemia, results should be confirmed by repeat testing. In a patient with classic symptoms of hyperglycemia or hyperglycemic crisis, random plasma glucose results greater than or equal to 200 mg/dL meet the criteria for diagnosis of diabetes.Reference: Standards of Medical Care in Diabetes 2016, [place] [employer]. Diabetes Care. 2016.39(Suppl 1). Performed By: #### 2 4321-2, 44207-8 ####[facility] LABCLIA [id number] [place] [id number] [place] Potassium [Moles/Vol] 3.9 mmol/L Normal 3.7-5.1 [facility] Comment on above: Order Comment: Speci men Type: BLOOD SPECIMENOrdering Facility: [facility] Address: [address] [place] [address] Performed By: #### 2 4321-2, 53575-9 ####[facility] LABCLIA [id number] [place] [address] [place] Sodium [Moles/Vol] 142 mmol/L Normal 136-144 [facility] Comment on above: Order Comment: Speci men Type: BLOOD SPECIMENOrdering Facility: [facility] Address: [address] [place] [address] Performed By: #### 2 4321-2, 96499-8 ####[facility] LABCLIA [id number] [place] [address] [place] Urea nitrogen [Mass/Vol] 43 mg/dL High 9-24 [facility] Comment on above: Order Comment: Speci men Type: BLOOD SPECIMENOrdering Facility: [facility] Address: [address] [place] [address] Performed By: #### 2 4321-2, 07516-3 ####[facility] LABCLIA [id number] [place] [address] [place] CBC W Auto Differential pane l (Bld)on 08-19-2024 Basophils (Bld) [#/Vol] 0.04 10*3/uL [facility] Basophils/100 WBC (Bld) 0.5 % [facility] Differential cell count method Nom (Bld) Auto [facility] Eosinophils (Bld) [#/Vol] 0.13 10*3/uL [facility] Eosinophils/100 WBC (Bld) 1.8 % [facility] Erythrocyte distribution width (RBC) [Ratio] 18.5 % High 11.5 - 15.0 % [facility] Hematocrit (Bld) [Volume fraction] 32.9 % Low 39.0 - 51.0 % [facility] Hemoglobin (Bld) [Mass/Vol] 10.3 g/dL Low 13.0 - 17.0 g/dL [facility] Immature granulocytes (Bld) [#/Vol] 0.04 10*3/[facility] Immature granulocytes/100 WBC (Bld) 0.5 % [facility] Interpretation and review of laboratory results Abnormal [facility] Lymphocytes (Bld) [#/Vol] 0.99 10*3/uL Low [facility] Lymphocytes/100 WBC (Bld) 13.6 % [facility] MCH (RBC) [Entitic mass] 28.5 pg 26.0 - 34.0 pg [facility] MCHC (RBC) [Mass/Vol] 31.3 g/dL 30.5 - 36.0 g/dL [facility] MCV (RBC) [Entitic vol] 90.9 fL 80.0 - 100.0 fL [facility] Monocytes (Bld) [#/Vol] 0.69 10*3/uL [facility] Monocytes/100 WBC (Bld) 9.5 % [facility] Neutrophils (Bld) [#/Vol] 5.40 10*3/uL [facility] Neutrophils/100 WBC (Bld) 74.1 % [facility] Nucleated RBC (Bld) [#/Vol] [facility] Nucleated RBC/100 WBC (Bld) [Ratio] 0.0 % /100 WBC [facility] Platelet mean volume (Bld) [Entitic vol] 10.3 fL 9.0 - 12.7 fL [facility] Platelets (Bld) [#/Vol] 192 10*3/uL [facility] RBC (Bld) [#/Vol] 3.62 10*6/uL Low 4.20 - 6.0 0 m/uL [facility] WBC (Bld) [#/Vol] 7.29 10*3/uL [facility] Basophils (Bld) [#/Vol] 0.04 10*3/uL Normal <0.11 [facility] Comment on above: Order Comment: Speci men Type: BLOOD SPECIMENOrdering Facility: [facility] Address: [address] [place] [address] Performed By: #### 5 7021-8 ####[facility] LABCLIA [id number] [address] [address] [address] [place] Basophils/100 WBC (Bld) 0.5 % Normal [facility] Comment on above: Order Comment: Speci men Type: BLOOD SPECIMENOrdering Facility: [facility] Address: [address] [place] [address] Performed By: #### 5 7021-8 ####[facility] LABCLIA [id number] [place] [address] [place] Differential cell count method Nom (Bld) Auto Normal [facility] Comment on above: Order Comment: Speci men Type: BLOOD SPECIMENOrdering Facility: [facility] Address: [address] [place] [address] Performed By: #### 5 7021-8 ####[facility] LABCLIA [id number] [place] [address] [place] Eosinophils (Bld) [#/Vol] 0.13 10*3/uL Normal <0.46 [facility] Comment on above: Order Comment: Speci men Type: BLOOD SPECIMENOrdering Facility: [facility] Address: [address] [place] [address] Performed By: #### 5 7021-8 ####[facility] LABCLIA [id number] [place] [address] [place] Eosinophils/100 WBC (Bld) 1.8 % Normal [facility] Comment on above: Order Comment: Speci men Type: BLOOD SPECIMENOrdering Facility: [facility] Address: [address] [place] [address] Performed By: #### 5 7021-8 ####[facility] LABCLIA [id number] [place] [address] [place] Erythrocyte distribution width (RBC) [Ratio] 18.5 % High 11.5-15.0 [facility] Comment on above: Order Comment: Speci men Type: BLOOD SPECIMENOrdering Facility: [facility] Address: [address] [place] [address] Performed By: #### 5 7021-8 ####[facility] LABCLIA [id number] [place] [address] [place] Hematocrit (Bld) [Volume fraction] 32.9 % Low 39.0-51.0 [facility] Comment on above: Order Comment: Speci men Type: BLOOD SPECIMENOrdering Facility: [facility] Address: [address] [place] [address] Performed By: #### 5 7021-8 ####[facility] LABIA [id number] [place] [address] [place] Hemoglobin (Bld) [Mass/Vol] 10.3 g/dL Low 13.0-17.0 [facility] Comment on above: Order Comment: Speci men Type: BLOOD SPECIMENOrdering Facility: [facility] Address: [address] [place] [address] Performed By: #### 5 7021-8 ####[facility] LABIA [id number] [place] [address] [place] Immature granulocytes (Bld) [#/Vol] 0.04 10*3/uL Normal <0.10 [facility] Comment on above: Order Comment: Speci men Type: BLOOD SPECIMENOrdering Facility: [facility] Address: [address] [place] [address] Performed By: #### 5 7021-8 ####[facility] LABIA [id number] [place] [address] [place] Immature granulocytes/100 WBC (Bld) 0.5 % Normal [facility] Comment on above: Order Comment: Speci men Type: BLOOD SPECIMENOrdering Facility: [facility] Address: [address] [place] [address] Performed By: #### 5 7021-8 ####[facility] LABIA [id number] [place] [address] [place] Lymphocytes (Bld) [#/Vol] 0.99 10*3/uL Low 1.00-4.00 [facility] Comment on above: Order Comment: Speci men Type: BLOOD SPECIMENOrdering Facility: [facility] Address: [address] [place] [address] Performed By: #### 5 7021-8 ####[facility] LABCLIA [id number] [place] [address] [place] Lymphocytes/100 WBC (Bld) 13.6 % Normal [facility] Comment on above: Order Comment: Speci men Type: BLOOD SPECIMENOrdering Facility: [facility] Address: [address] [place] [address] Performed By: #### 5 7021-8 ####[facility] LABIA [id number] [place] [address] [place] MCH (RBC) [Entitic mass] 28.5 pg Normal 26.0-34.0 [facility] Comment on above: Order Comment: Speci men Type: BLOOD SPECIMENOrdering Facility: [facility] Address: [address] [place] [address] Performed By: #### 5 7021-8 ####[facility] LABIA [id number] [place] [address] [place] MCHC (RBC) [Mass/Vol] 31.3 g/dL Normal 30.5-36.0 [facility] Comment on above: Order Comment: Speci men Type: BLOOD SPECIMENOrdering Facility: [facility] Address: [address] [place] [address] Performed By: #### 5 7021-8 ####[facility] LABCLIA [id number] [place] [address] [place] MCV (RBC) [Entitic vol] 90.9 fL Normal 80.0-100.0 [facility] Comment on above: Order Comment: Speci men Type: BLOOD SPECIMENOrdering Facility: [facility] Address: [address] [place] [address] Performed By: #### 5 7021-8 ####[facility] LABCLIA [id number] [place] [address] [place] Monocytes (Bld) [#/Vol] 0.69 10*3/uL Normal <0.87 [facility] Comment on above: Order Comment: Speci men Type: BLOOD SPECIMENOrdering Facility: [facility] Address: [address] [place] [address] Performed By: #### 5 7021-8 ####[facility] LABCLIA [id number] [place] [address] [place] Monocytes/100 WBC (Bld) 9.5 % Normal [facility] Comment on above: Order Comment: Speci men Type: BLOOD SPECIMENOrdering Facility: [facility] Address: [address] [place] [address] Performed By: #### 5 7021-8 ####[facility] LABCLIA [id number] [place] [address] [place] Neutrophils (Bld) [#/Vol] 5.40 10*3/uL Normal 1.45-7.50 [facility] Comment on above: Order Comment: Speci men Type: BLOOD SPECIMENOrdering Facility: [facility] Address: [address] [place] [address] Performed By: #### 5 7021-8 ####[facility] LABCLIA [id number] [place] [address] [place] Neutrophils/100 WBC (Bld) 74.1 % Normal [facility] Comment on above: Order Comment: Speci men Type: BLOOD SPECIMENOrdering Facility: [facility] Address: [address] [place] [address] Performed By: #### 5 7021-8 ####[facility] LABCLIA [id number] [place] [address] [place] Nucleated RBC (Bld) [#/Vol] 10*3/uL Normal <0.01 [facility] Comment on above: Order Comment: Speci men Type: BLOOD SPECIMENOrdering Facility: [facility] Address: [address] [place] [address] Performed By: #### 5 7021-8 ####[facility] LABCLIA [id number] [place] [address] [place] Nucleated RBC/100 WBC (Bld) [Ratio] 0.0 /100 WBC Normal [facility] Comment on above: Order Comment: Speci men Type: BLOOD SPECIMENOrdering Facility: [facility] Address: [address] [place] [address] Performed By: #### 5 7021-8 ####[facility] LABCLIA [id number] [place] [address] [place] Platelet mean volume (Bld) [Entitic vol] 10.3 fL Normal 9.0-12.7 [facility] Comment on above: Order Comment: Speci men Type: BLOOD SPECIMENOrdering Facility: [facility] Address: [address] [place] [address] Performed By: #### 5 7021-8 ####[facility] LABIA [id number] [place] [address] [place] Platelets (Bld) [#/Vol] 192 10*3/uL Normal 150-400 [facility] Comment on above: Order Comment: Speci men Type: BLOOD SPECIMENOrdering Facility: [facility] Address: [address] [place] [address] Performed By: #### 5 7021-8 ####[facility] LABCLIA [id number] [place] [address] [place] RBC (Bld) [#/Vol] 3.62 10*6/uL Low 4.20-6.00 [facility] Comment on above: Order Comment: Speci men Type: BLOOD SPECIMENOrdering Facility: [facility] Address: [address] [place] [address] Performed By: #### 5 7021-8 ####[facility] LABCLIA [id number] [place] [address] [place] WBC (Bld) [#/Vol] 7.29 10*3/uL Normal 3.70-11.00 [facility] Comment on above: Order Comment: Speci men Type: BLOOD SPECIMENOrdering Facility: [facility] Address: [address] [place] [address] Performed By: #### 5 7021-8 ####[facility] LABIA [id number] [place] [address] [place] CNCNPATEDon 08-19-2024 CNCNPATED Normal [facility] CNOVon 08-19-2024 CNOV Normal [facility] HOLTER MONITOR 48 HOURon HOLTER MONITOR 48 HOUR Normal [facility] NT-proBNP SerPl-mCncon 08-19 Natriuretic peptide.B prohormone N-Terminal [Mass/Vol] 62784 pg/mL High <450 [facility] Comment on above: Order Comment: Speci men Type: BLOOD SPECIMENOrdering Facility: [facility] Address: [address] [place] [address] Performed By: #### 2 4321-2, 43833-9 ####[facility] LABIA [id number] [place] [address] [place] CNPNon 08-17-2024 CNPN Normal [facility] CNPNon 08-14-2024 CNPN Normal [facility] CNPNon 08-03-2024 CNPN Normal [facility] CNPNon 07-30-2024 CNPN Normal [facility] CBC panel Auto (Bld)on 07-26 Erythrocyte distribution width (RBC) [Ratio] 17.2 % High 11.5-15.0 [facility] Comment on above: Order Comment: Speci men Type: BLOOD SPECIMENOrdering Facility: [facility] Address: [address] [place] [address] Performed By: #### 5 8410-2 ####[facility] LABIA [id number] [place] [address] [place] Hematocrit (Bld) [Volume fraction] 41.0 % Normal 39.0-51.0 [facility] Comment on above: Order Comment: Speci men Type: BLOOD SPECIMENOrdering Facility: [facility] Address: [address] [place] [address] Performed By: #### 5 8410-2 ####[facility] LABIA [id number] [place] [address] [place] Hemoglobin (Bld) [Mass/Vol] 12.5 g/dL Low 13.0-17.0 [facility] Comment on above: Order Comment: Speci men Type: BLOOD SPECIMENOrdering Facility: [facility] Address: [address] [place] [address] Performed By: #### 5 8410-2 ####[facility] LABIA [id number] [place] [address] [place] MCH (RBC) [Entitic mass] 27.7 pg Normal 26.0-34.0 [facility] Comment on above: Order Comment: Speci men Type: BLOOD SPECIMENOrdering Facility: [facility] Address: [address] [place] [address] Performed By: #### 5 8410-2 ####[facility] LABIA [id number] [place] [address] [place] MCHC (RBC) [Mass/Vol] 30.5 g/dL Normal 30.5-36.0 [facility] Comment on above: Order Comment: Speci men Type: BLOOD SPECIMENOrdering Facility: [facility] Address: [address] [place] [address] Performed By: #### 5 8410-2 ####[facility] LABIA [id number] [place] [address] [place] MCV (RBC) [Entitic vol] 90.7 fL Normal 80.0-100.0 [facility] Comment on above: Order Comment: Speci men Type: BLOOD SPECIMENOrdering Facility: [facility] Address: [address] [place] [address] Performed By: #### 5 8410-2 ####[facility] LABIA [id number] [place] [address] [place] Nucleated RBC (Bld) [#/Vol] 10*3/uL Normal <0.01 [facility] Comment on above: Order Comment: Speci men Type: BLOOD SPECIMENOrdering Facility: [facility] Address: [address] [place] [address] Performed By: #### 5 8410-2 ####[facility] LABIA [id number] [place] [address] [place] Platelet mean volume (Bld) [Entitic vol] 10.9 fL Normal 9.0-12.7 [facility] Comment on above: Order Comment: Speci men Type: BLOOD SPECIMENOrdering Facility: [facility] Address: [address] [place] [address] Performed By: #### 5 8410-2 ####[facility] LABIA [id number] [place] [address] [place] Platelets (Bld) [#/Vol] 158 10*3/uL Normal 150-400 [facility] Comment on above: Order Comment: Speci men Type: BLOOD SPECIMENOrdering Facility: [facility] Address: [address] [place] [address] Performed By: #### 5 8410-2 ####[facility] LABIA [id number] [place] [address] [place] RBC (Bld) [#/Vol] 4.52 10*6/uL Normal 4.20-6.00 [facility] Comment on above: Order Comment: Speci men Type: BLOOD SPECIMENOrdering Facility: [facility] Address: [address] [place] [address] Performed By: #### 5 8410-2 ####[facility] LABCLIA [id number] [place] [address] [place] WBC (Bld) [#/Vol] 5.57 10*3/uL Normal 3.70-11.00 [facility] Comment on above: Order Comment: Speci men Type: BLOOD SPECIMENOrdering Facility: [facility] Address: [address] [place] [address] Performed By: #### 5 8410-2 ####[facility] LABCLIA [id number] [place] [address] [place] CNDSon 07-26-2024 CNDS Normal [facility] Comprehensive metabolic 2000 panelon 07-26-2024 Albumin [Mass/Vol] 3.3 g/dL Low 3.9-4.9 [facility] Comment on above: Order Comment: Speci men Type: BLOOD SPECIMENOrdering Facility: [facility] Address: [address] [place] [address] Performed By: #### 2 4323-8, 24023-5 ####[facility] LABCLIA [id number] [place] [address] [place] ALP [Catalytic activity/Vol] 86 U/L Normal 38-113 [facility] Comment on above: Order Comment: Speci men Type: BLOOD SPECIMENOrdering Facility: [facility] Address: [address] [place] [address] Performed By: #### 2 4323-8, 15146-4 ####[facility] LABCLIA [id number] [place] [address] [place] ALT [Catalytic activity/Vol] 15 U/L Normal 10-54 [facility] Comment on above: Order Comment: Speci men Type: BLOOD SPECIMENOrdering Facility: [facility] Address: [address] [place] [address] Performed By: #### 2 4323-8, ####[facility] LABCLIA [id number] [facility] [place] [id number] [place] Anion gap [Moles/Vol] 10 mmol/L Normal 8-15 [facility] Comment on above: Order Comment: Speci men Type: BLOOD SPECIMENOrdering Facility: [facility] Address: [address] [place], [place] [address] Performed By: #### 2 432-8, ####[facility] LABCLIA [id number] [place] [address] [place] AST [Catalytic activity/Vol] 26 U/L Normal 14-40 [facility] Comment on above: Order Comment: Speci men Type: BLOOD SPECIMENOrdering Facility: [facility] Address: [address] [place], [place] [address] Result Comment: Resu lts may be falsely increased due to interference from hemolysis. Suggest reorder as clinically indicated. Performed By: #### 2 432-8, ####[facility] LABCLIA [id number] [place] [id number] [place] Bilirubin [Mass/Vol] 0.8 mg/dL Normal 0.2-1.3 [facility] Comment on above: Order Comment: Speci men Type: BLOOD SPECIMENOrdering Facility: [facility] Address: [address] [place] [address] Performed By: #### 2 4323-8, ####[facility] LABCLIA [id number] [facility] [address] [address] [place] Calcium [Mass/Vol] 8.8 mg/dL Normal 8.5-10.2 [facility] Comment on above: Order Comment: Speci men Type: BLOOD SPECIMENOrdering Facility: [facility] Address: [address] [place] [address] Performed By: #### 2 4323-8, ####[facility] LABCLIA [id number] [address] [address] [place] Chloride [Moles/Vol] 101 mmol/L Normal 98-107 [facility] Comment on above: Order Comment: Speci men Type: BLOOD SPECIMENOrdering Facility: [facility] Address: [address] [place] [address] Performed By: #### 2 4323-8, ####[facility] LABCLIA [id number] [place] [address] [place] CO2 [Moles/Vol] 30 mmol/L Normal 22-30 [facility] Comment on above: Order Comment: Speci men Type: BLOOD SPECIMENOrdering Facility: [facility] Address: [address] [place] [address] Performed By: #### 2 4323-8, ####[facility] LABCLIA [id number] [place] [address] [place] Creatinine [Mass/Vol] 2.02 mg/dL High 0.73-1.22 [facility] Comment on above: Order Comment: Speci men Type: BLOOD SPECIMENOrdering Facility: [facility] Address: [address] [place] [address] Performed By: #### 2 4323-8, ####[facility] LABCLIA [id number] [place] [address] [place] Creatinine and Glomerular filtration rate.predicted panel (S/P/Bld) 32 mL/min/1.73m??? Low >=60 [facility] Comment on above: Order Comment: Speci men Type: BLOOD SPECIMENOrdering Facility: [facility] Address: [address] [place] [address] Result Comment: Etta mated Glomerular Filtration Rate [...] actual GFR. Performed By: #### 2 4323-8, ####[facility] LABCLIA [id number] [place] [address] [place] Glucose [Mass/Vol] 121 mg/dL High 74-99 [facility] Comment on above: Order Comment: Dylan olvera Type: BLOOD SPECIMENOrdering Facility: [facility] Address: [address] [place] [address] Result Comment: The [place] [employer] (ADA) provides guidance for cutoff values for fasting glucose and random glucose. The ADA defines fasting as no caloric intake for at least 8 hours. Fasting plasma glucose results between 100 to 125 mg/dL indicate increased risk for diabetes (prediabetes).Fasting plasma glucose results greater than or equal to 126 mg/dL meet the criteria for diagnosis of diabetes. In the absence of unequivocal hyperglycemia, results should be confirmed by repeat testing. In a patient with classic symptoms of hyperglycemia or hyperglycemic crisis, random plasma glucose results greater than or equal to 200 mg/dL meet the criteria for diagnosis of diabetes.Reference: Standards of Medical Care in Diabetes 2016, [place] [employer]. Diabetes Care. 2016.39(Suppl 1). Performed By: #### 2 4323-8, ####[facility] LABCLIA [id number] [place] [id number] [place] Potassium [Moles/Vol] 4.2 mmol/L Normal 3.7-5.1 [facility] Comment on above: Order Comment: Dylan olvera Type: BLOOD SPECIMENOrdering Facility: [facility] Address: [address] [place] [address] Performed By: #### 2 4323-8, ####[facility] LABCLIA [id number] [place] [address] [place] Protein [Mass/Vol] 6.2 g/dL Low 6.3-8.0 [facility] Comment on above: Order Comment: Speci men Type: BLOOD SPECIMENOrdering Facility: [facility] Address: [address] [place] [address] Performed By: #### 2 4323-8, ####[facility] LABCLIA [id number] [place] [address] [place] Sodium [Moles/Vol] 141 mmol/L Normal 136-144 [facility] Comment on above: Order Comment: Speci men Type: BLOOD SPECIMENOrdering Facility: [facility] Address: [address] [place] [address] Performed By: #### 2 4323-8, ####[facility] LABCLIA [id number] [place] [address] [place] Urea nitrogen [Mass/Vol] 40 mg/dL High 9-24 [facility] Comment on above: Order Comment: Speci men Type: BLOOD SPECIMENOrdering Facility: [facility] Address: [address] [place] [address] Performed By: #### 2 4323-8, ####[facility] LABCLIA [id number] [place] [address] [place] Magnesium SerPl-mCncon 07-26 Magnesium [Mass/Vol] 2.5 mg/dL High 1.7-2.3 [facility] Comment on above: Order Comment: Speci men Type: BLOOD SPECIMENOrdering Facility: [facility] Address: [address] [place] [address] Performed By: #### 2 4323-8, 84959-3 ####[facility] LABCLIA [id number] [place] [id number] [place] PT EDon 07-26-2024 PT ED Normal [facility] THERAPY NTon 07-26-2024 THERAPY NT Normal [facility] Basic metabolic 2000 panelon 07-25-2024 Anion gap [Moles/Vol] 13 mmol/L Normal 8-15 [facility] Comment on above: Order Comment: Speci men Type: BLOOD SPECIMENOrdering Facility: [facility] Address: [address] [place] [address] Performed By: #### 2 4321-2, ####[facility] LABCLIA [id number] [place] [address] [place] Calcium [Mass/Vol] 8.9 mg/dL Normal 8.5-10.2 [facility] Comment on above: Order Comment: Speci men Type: BLOOD SPECIMENOrdering Facility: [facility] Address: [address] [place] [address] Performed By: #### 2 432-2, ####[facility] LABCLIA [id number] [place] [address] [place] Chloride [Moles/Vol] 99 mmol/L Normal 98-107 [facility] Comment on above: Order Comment: Speci men Type: BLOOD SPECIMENOrdering Facility: [facility] Address: [address] [place] [address] Performed By: #### 2 4321-2, ####[facility] LABCLIA [id number] [place] [id number] [place] CO2 [Moles/Vol] 29 mmol/L Normal 22-30 [facility] Comment on above: Order Comment: Speci men Type: BLOOD SPECIMENOrdering Facility: [facility] Address: [address] [place] [address] Performed By: #### 2 4321-2, ####[facility] LABCLIA [id number] [place] [id number] [place] Creatinine [Mass/Vol] 1.99 mg/dL High 0.73-1.22 [facility] Comment on above: Order Comment: Dylan olvera Type: BLOOD SPECIMENOrdering Facility: [facility] Address: [address] [place] [address] Performed By: #### 2 4321-2, ####[facility] LABCLIA [id number] [address] [place] Creatinine and Glomerular filtration rate.predicted panel (S/P/Bld) 33 mL/min/1.73m??? Low >=60 [facility] Comment on above: Order Comment: Dylan olvera Type: BLOOD SPECIMENOrdering Facility: [facility] Address: [address] [place] [address] Result Comment: Etta mated Glomerular Filtration Rate [...] reflect actual GFR. Performed By: #### 2 4321-, ####[facility] LABCLIA [id number] [place] [address] [place] Glucose [Mass/Vol] 92 mg/dL Normal 74-99 [facility] Comment on above: Order Comment: Dylan olvera Type: BLOOD SPECIMENOrdering Facility: [facility] Address: [address] [place] [address] Result Comment: The [place] [employer] (ADA) provides guidance for cutoff values for fasting glucose and random glucose. The ADA defines fasting as no caloric intake for at least 8 hours. Fasting plasma glucose results between 100 to 125 mg/dL indicate increased risk for diabetes (prediabetes).Fasting plasma glucose results greater than or equal to 126 mg/dL meet the criteria for diagnosis of diabetes. In the absence of unequivocal hyperglycemia, results should be confirmed by repeat testing. In a patient with classic symptoms of hyperglycemia or hyperglycemic crisis, random plasma glucose results greater than or equal to 200 mg/dL meet the criteria for diagnosis of diabetes.Reference: Standards of Medical Care in Diabetes 2016, [place] [employer]. Diabetes Care. 2016.39(Suppl 1). Performed By: #### 2 4320-2, ####[facility] LABCLIA [id number] [address] [address] [place] Potassium [Moles/Vol] 3.2 mmol/L Low 3.7-5.1 [facility] Comment on above: Order Comment: Speci men Type: BLOOD SPECIMENOrdering Facility: [facility] Address: [address] [place] [address] Performed By: #### 2 4320-10, ####[facility] LABCLIA [id number] [place] [address] [place] Sodium [Moles/Vol] 141 mmol/L Normal 136-144 [facility] Comment on above: Order Comment: Speci men Type: BLOOD SPECIMENOrdering Facility: [facility] Address: [address] [place] [address] Performed By: #### 2 4320-10, ####[facility] LABCLIA [id number] [place] [address] [place] Urea nitrogen [Mass/Vol] 40 mg/dL High 9-24 [facility] Comment on above: Order Comment: Speci men Type: BLOOD SPECIMENOrdering Facility: [facility] Address: [address] [place] [address] Performed By: #### 2 4320-10, ####[facility] LABCLIA [id number] [place] [id number] [place] CBC panel Auto (Bld)on 07-25 Erythrocyte distribution width (RBC) [Ratio] 17.3 % High 11.5-15.0 [facility] Comment on above: Order Comment: Speci men Type: BLOOD SPECIMENOrdering Facility: [facility] Address: [address] [place] [address] Performed By: #### 5 8410-2 ####[facility] LABCLIA [id number] [place] [address] [place] Hematocrit (Bld) [Volume fraction] 41.7 % Normal 39.0-51.0 [facility] Comment on above: Order Comment: Speci men Type: BLOOD SPECIMENOrdering Facility: [facility] Address: [address] [place] [address] Performed By: #### 5 8410-2 ####[facility] LABCLIA [id number] [place] [address] [place] Hemoglobin (Bld) [Mass/Vol] 12.8 g/dL Low 13.0-17.0 [facility] Comment on above: Order Comment: Speci men Type: BLOOD SPECIMENOrdering Facility: [facility] Address: [address] [place] [address] Performed By: #### 5 8410-2 ####[facility] LABCLIA [id number] [place] [address] [place] MCH (RBC) [Entitic mass] 27.9 pg Normal 26.0-34.0 [facility] Comment on above: Order Comment: Speci men Type: BLOOD SPECIMENOrdering Facility: [facility] Address: [address] [place] [address] Performed By: #### 5 8410-2 ####[facility] LABCLIA [id number] [place] [address] [place] MCHC (RBC) [Mass/Vol] 30.7 g/dL Normal 30.5-36.0 [facility] Comment on above: Order Comment: Speci men Type: BLOOD SPECIMENOrdering Facility: [facility] Address: [address] [place] [address] Performed By: #### 5 8410-2 ####[facility] LABCLIA [id number] [place] [address] [place] MCV (RBC) [Entitic vol] 91.0 fL Normal 80.0-100.0 [facility] Comment on above: Order Comment: Speci men Type: BLOOD SPECIMENOrdering Facility: [facility] Address: [address] [place] [address] Performed By: #### 5 8410-2 ####[facility] [id number] [place] [address] [place] Nucleated RBC (Bld) [#/Vol] 10*3/uL Normal <0.01 [facility] Comment on above: Order Comment: Speci men Type: BLOOD SPECIMENOrdering Facility: [facility] Address: [address] [place] [address] Performed By: #### 5 8410-2 ####[facility] [id number] [place] [address] [place] Platelet mean volume (Bld) [Entitic vol] 10.4 fL Normal 9.0-12.7 [facility] Comment on above: Order Comment: Speci men Type: BLOOD SPECIMENOrdering Facility: [facility] Address: [address] [place] [address] Performed By: #### 5 8410-2 ####[facility] [id number] [place] [address] [place] Platelets (Bld) [#/Vol] 150 10*3/uL Normal 150-400 [facility] Comment on above: Order Comment: Speci men Type: BLOOD SPECIMENOrdering Facility: [facility] Address: [address] [place] [address] Performed By: #### 5 8410-2 ####[facility] LABIA [id number] [place] [address] [place] RBC (Bld) [#/Vol] 4.58 10*6/uL Normal 4.20-6.00 [facility] Comment on above: Order Comment: Speci men Type: BLOOD SPECIMENOrdering Facility: [facility] Address: [address] [place] [address] Performed By: #### 5 8410-2 ####[facility] LABCLIA [id number] [address] [address] [place] WBC (Bld) [#/Vol] 5.10 10*3/uL Normal 3.70-11.00 [facility] Comment on above: Order Comment: Speci men Type: BLOOD SPECIMENOrdering Facility: [facility] Address: [address] [place] [address] Performed By: #### 5 8410-2 ####[facility] LABCLIA [id number] [place] [address] [place] Magnesium SerPl-mCncon 07-25 Magnesium [Mass/Vol] 2.3 mg/dL Normal 1.7-2.3 [facility] Comment on above: Order Comment: Speci men Type: BLOOD SPECIMENOrdering Facility: [facility] Address: [address] [place] [address] Performed By: #### 2 4321-2, ####[facility] LABCLIA [id number] [place] [id number] [place] NUTRITIONon 07-25-2024 NUTRITION Normal [facility] PT EDon 07-25-2024 PT ED Normal [facility] Basic metabolic 2000 panelon 07-24-2024 Anion gap [Moles/Vol] 15 mmol/L Normal 8-15 [facility] Comment on above: Order Comment: Speci men Type: BLOOD SPECIMENOrdering Facility: [facility] Address: [address] [place] [address] Performed By: #### 2 4321-2, ####[facility] LABCLIA [id number] [address] [id number] [address] [place] Calcium [Mass/Vol] 8.6 mg/dL Normal 8.5-10.2 [facility] Comment on above: Order Comment: Speci men Type: BLOOD SPECIMENOrdering Facility: [facility] Address: [address] [place] [address] Performed By: #### 2 4321-2, ####[facility] LABCLIA [id number] [facility] [place] [id number] [place] Chloride [Moles/Vol] 100 mmol/L Normal 98-107 [facility] Comment on above: Order Comment: Speci men Type: BLOOD SPECIMENOrdering Facility: [facility] Address: [address] [place] [address] Performed By: #### 2 4320-2, ####[facility] LABCLIA [id number] [place] [address] [place] CO2 [Moles/Vol] 25 mmol/L Normal 22-30 [facility] Comment on above: Order Comment: Speci men Type: BLOOD SPECIMENOrdering Facility: [facility] Address: [address] [place] [address] Performed By: #### 2 4320-2, ####[facility] LABCLIA [id number] [place] [id number] [place] Creatinine [Mass/Vol] 1.96 mg/dL High 0.73-1.22 [facility] Comment on above: Order Comment: Speci men Type: BLOOD SPECIMENOrdering Facility: [facility] Address: [address] [place] [address] Performed By: #### 2 4320-2, ####[facility] LABCLIA [id number] [facility] [place] [id number] [place] Creatinine and Glomerular filtration rate.predicted panel (S/P/Bld) 34 mL/min/1.73m??? Low >=60 [facility] Comment on above: Order Comment: Dylan olvera Type: BLOOD SPECIMENOrdering Facility: [facility] Address: [address] [place] [address] Result Comment: Etta mated Glomerular Filtration Rate [...] actual GFR. Performed By: #### 2 4321-2, ####[facility] [id number] [place] [address] [place] Glucose [Mass/Vol] 80 mg/dL Normal 74-99 [facility] Comment on above: Order Comment: Dylan olvera Type: BLOOD SPECIMENOrdering Facility: [facility] Address: [address] [place] [address] Result Comment: The [place] [employer] (ADA) provides guidance for cutoff values for fasting glucose and random glucose. The ADA defines fasting as no caloric intake for at least 8 hours. Fasting plasma glucose results between 100 to 125 mg/dL indicate increased risk for diabetes (prediabetes).Fasting plasma glucose results greater than or equal to 126 mg/dL meet the criteria for diagnosis of diabetes. In the absence of unequivocal hyperglycemia, results should be confirmed by repeat testing. In a patient with classic symptoms of hyperglycemia or hyperglycemic crisis, random plasma glucose results greater than or equal to 200 mg/dL meet the criteria for diagnosis of diabetes.Reference: Standards of Medical Care in Diabetes 2016, [place] [employer]. Diabetes Care. 2016.39(Suppl 1). Performed By: #### 2 4321-2, ####[facility] [id number] [place] [id number] [place] Potassium [Moles/Vol] 3.4 mmol/L Low 3.7-5.1 [facility] Comment on above: Order Comment: Dylan olvera Type: BLOOD SPECIMENOrdering Facility: [facility] Address: [address] [place] [id number] Performed By: #### 2 4321-2, ####[facility] LABCLIA [id number] [address] [address] [place] Sodium [Moles/Vol] 140 mmol/L Normal 136-144 [facility] Comment on above: Order Comment: Speci men Type: BLOOD SPECIMENOrdering Facility: [facility] Address: [address] [place] [address] Performed By: #### 2 4321-2, ####[facility] LABCLIA [id number] [place] [address] [place] Urea nitrogen [Mass/Vol] 40 mg/dL High 9-24 [facility] Comment on above: Order Comment: Speci men Type: BLOOD SPECIMENOrdering Facility: [facility] Address: [address] [place] [address] Performed By: #### 2 432-2, ####[facility] LABCLIA [id number] [place] [id number] [place] CASE MANAGEMon 07-24-2024 CASE MANAGEM Normal [facility] CBC panel Auto (Bld)on 07-24 Erythrocyte distribution width (RBC) [Ratio] 17.2 % High 11.5-15.0 [facility] Comment on above: Order Comment: Speci men Type: BLOOD SPECIMENOrdering Facility: [facility] Address: [address] [place] [address] Performed By: #### 5 8410-2 ####[facility] LABCLIA [id number] [place] [id number] [place] Hematocrit (Bld) [Volume fraction] 41.8 % Normal 39.0-51.0 [facility] Comment on above: Order Comment: Speci men Type: BLOOD SPECIMENOrdering Facility: [facility] Address: [address] [place] [address] Performed By: #### 5 8410-2 ####[facility] LABIA [id number] [place] [address] [place] Hemoglobin (Bld) [Mass/Vol] 13.1 g/dL Normal 13.0-17.0 [facility] Comment on above: Order Comment: Speci men Type: BLOOD SPECIMENOrdering Facility: [facility] Address: [address] [place] [address] Performed By: #### 5 8410-2 ####[facility] LABIA [id number] [place] [address] [place] MCH (RBC) [Entitic mass] 28.2 pg Normal 26.0-34.0 [facility] Comment on above: Order Comment: Speci men Type: BLOOD SPECIMENOrdering Facility: [facility] Address: [address] [place] [address] Performed By: #### 5 8410-2 ####[facility] [id number] [place] [address] [place] MCHC (RBC) [Mass/Vol] 31.3 g/dL Normal 30.5-36.0 [facility] Comment on above: Order Comment: Speci men Type: BLOOD SPECIMENOrdering Facility: [facility] Address: [address] [place] [address] Performed By: #### 5 8410-2 ####[facility] [id number] [place] [address] [place] MCV (RBC) [Entitic vol] 90.1 fL Normal 80.0-100.0 [facility] Comment on above: Order Comment: Speci men Type: BLOOD SPECIMENOrdering Facility: [facility] Address: [address] [place] [address] Performed By: #### 5 8410-2 ####[facility] [id number] [place] [address] [place] Nucleated RBC (Bld) [#/Vol] 10*3/uL Normal <0.01 [facility] Comment on above: Order Comment: Speci men Type: BLOOD SPECIMENOrdering Facility: [facility] Address: [address] [place] [address] Performed By: #### 5 8410-2 ####[facility] LABCLIA [id number] [place] [address] [place] Platelet mean volume (Bld) [Entitic vol] 11.2 fL Normal 9.0-12.7 [facility] Comment on above: Order Comment: Speci men Type: BLOOD SPECIMENOrdering Facility: [facility] Address: [address] [place] [address] Performed By: #### 5 8410-2 ####[facility] LABCLIA [id number] [place] [address] [place] Platelets (Bld) [#/Vol] 155 10*3/uL Normal 150-400 [facility] Comment on above: Order Comment: Speci men Type: BLOOD SPECIMENOrdering Facility: [facility] Address: [address] [place] [address] Performed By: #### 5 8410-2 ####[facility] LABCLIA [id number] [place] [address] [place] RBC (Bld) [#/Vol] 4.64 10*6/uL Normal 4.20-6.00 [facility] Comment on above: Order Comment: Speci men Type: BLOOD SPECIMENOrdering Facility: [facility] Address: [address] [place] [address] Performed By: #### 5 8410-2 ####[facility] LABCLIA [id number] [place] [address] [place] WBC (Bld) [#/Vol] 5.21 10*3/uL Normal 3.70-11.00 [facility] Comment on above: Order Comment: Speci men Type: BLOOD SPECIMENOrdering Facility: [facility] Address: [address] [place] [address] Performed By: #### 5 8410-2 ####[facility] LABCLIA [id number] [place] [id number] [place] CNCNPATEDon 07-24-2024 CNCNPATED Normal [facility] HOLTER 48 HOUR J2on 07-24-20 24 HOLTER 48 HOUR J2 Normal [facility] Magnesium SerPl-mCncon 07-24 Magnesium [Mass/Vol] 2.2 mg/dL Normal 1.7-2.3 [facility] Comment on above: Order Comment: Speci men Type: BLOOD SPECIMENOrdering Facility: [facility] Address: [address] [place] [address] Performed By: #### 2 4321-2, ####[facility] LABCLIA [id number] [place] [address] [place] NURSING PROGon 07-24-2024 NURSING PROG Normal [facility] Basic metabolic 2000 panelon 07-23-2024 Anion gap [Moles/Vol] 15 mmol/L Normal 8-15 [facility] Comment on above: Order Comment: Speci men Type: BLOOD SPECIMENOrdering Facility: [facility] Address: [address] [place] [address] Performed By: #### 2 4321-2, ####[facility] LABCLIA [id number] [place] [address] [place] Calcium [Mass/Vol] 8.7 mg/dL Normal 8.5-10.2 [facility] Comment on above: Order Comment: Speci men Type: BLOOD SPECIMENOrdering Facility: [facility] Address: [address] [place] [address] Performed By: #### 2 4321-2, 70433-3 ####[facility] LABCLIA [id number] [place] [address] [place] Chloride [Moles/Vol] 101 mmol/L Normal 98-107 [facility] Comment on above: Order Comment: Speci men Type: BLOOD SPECIMENOrdering Facility: [facility] Address: [address] [place] [address] Performed By: #### 2 4321-2, ####[facility] LABIA [id number] [place] [address] [place] CO2 [Moles/Vol] 21 mmol/L Low 22-30 [facility] Comment on above: Order Comment: Speci men Type: BLOOD SPECIMENOrdering Facility: [facility] Address: [address] [place] [address] Performed By: #### 2 4321-2, ####[facility] LABIA [id number] [place] [address] [place] Creatinine [Mass/Vol] 1.96 mg/dL High 0.73-1.22 [facility] Comment on above: Order Comment: Speci men Type: BLOOD SPECIMENOrdering Facility: [facility] Address: [address] [place] [address] Performed By: #### 2 4321-2, ####[facility] LABIA [id number] [place] [address] [place] Creatinine and Glomerular filtration rate.predicted panel (S/P/Bld) 34 mL/min/1.73m??? Low >=60 [facility] Comment on above: Order Comment: Speci men Type: BLOOD SPECIMENOrdering Facility: [facility] Address: [address] [place] [address] Result Comment: Etta mated Glomerular Filtration Rate [...] reflect actual GFR. Performed By: #### 2 432-, ####[facility] LABCLIA [id number] [place] [address] [place] Glucose [Mass/Vol] 75 mg/dL Normal 74-99 [facility] Comment on above: Order Comment: Dylan olvera Type: BLOOD SPECIMENOrdering Facility: [facility] Address: [address] [place] [address] Result Comment: The [place] [employer] (ADA) provides guidance for cutoff values for fasting glucose and random glucose. The ADA defines fasting as no caloric intake for at least 8 hours. Fasting plasma glucose results between 100 to 125 mg/dL indicate increased risk for diabetes (prediabetes).Fasting plasma glucose results greater than or equal to 126 mg/dL meet the criteria for diagnosis of diabetes. In the absence of unequivocal hyperglycemia, results should be confirmed by repeat testing. In a patient with classic symptoms of hyperglycemia or hyperglycemic crisis, random plasma glucose results greater than or equal to 200 mg/dL meet the criteria for diagnosis of diabetes.Reference: Standards of Medical Care in Diabetes 2016, [place] [employer]. Diabetes Care. 2016.39(Suppl 1). Performed By: #### 2 4320-10, ####[facility] LABIA [id number] [place] [address] [place] Potassium [Moles/Vol] 4.1 mmol/L Normal 3.7-5.1 [facility] Comment on above: Order Comment: Dylan olvera Type: BLOOD SPECIMENOrdering Facility: [facility] Address: [address] [place] [address] Performed By: #### 2 43209-17, ####[facility] LABIA [id number] [place] [address] [place] Sodium [Moles/Vol] 137 mmol/L Normal 136-144 [facility] Comment on above: Order Comment: Dylan olvera Type: BLOOD SPECIMENOrdering Facility: [facility] Address: [address] [place] [address] Performed By: #### 2 4321-2, ####[facility] LABIA [id number] [place] [address] [place] Urea nitrogen [Mass/Vol] 38 mg/dL High 9-24 [facility] Comment on above: Order Comment: Speci men Type: BLOOD SPECIMENOrdering Facility: [facility] Address: [address] [place] [address] Performed By: #### 2 4321-2, ####[facility] LABIA [id number] [place] [address] [place] CBC panel Auto (Bld)on 07-23 Erythrocyte distribution width (RBC) [Ratio] 17.5 % High 11.5-15.0 [facility] Comment on above: Order Comment: Speci men Type: BLOOD SPECIMENOrdering Facility: [facility] Address: [address] [place] [address] Performed By: #### 5 8410-2 ####[facility] [id number] [place] [address] [place] Hematocrit (Bld) [Volume fraction] 42.9 % Normal 39.0-51.0 [facility] Comment on above: Order Comment: Speci men Type: BLOOD SPECIMENOrdering Facility: [facility] Address: [address] [place] [address] Performed By: #### 5 8410-2 ####[facility] [id number] [place] [id number] [place] Hemoglobin (Bld) [Mass/Vol] 12.7 g/dL Low 13.0-17.0 [facility] Comment on above: Order Comment: Speci men Type: BLOOD SPECIMENOrdering Facility: [facility] Address: [address] [place] [address] Performed By: #### 5 8410-2 ####[facility] LABIA [id number] [place] [address] [place] MCH (RBC) [Entitic mass] 28.2 pg Normal 26.0-34.0 [facility] Comment on above: Order Comment: Speci men Type: BLOOD SPECIMENOrdering Facility: [facility] Address: [address] [place] [address] Performed By: #### 5 8410-2 ####[facility] [id number] [place] [address] [place] MCHC (RBC) [Mass/Vol] 29.6 g/dL Low 30.5-36.0 [facility] Comment on above: Order Comment: Speci men Type: BLOOD SPECIMENOrdering Facility: [facility] Address: [address] [place] [address] Performed By: #### 5 8410-2 ####[facility] [id number] [place] [address] [place] MCV (RBC) [Entitic vol] 95.3 fL Normal 80.0-100.0 [facility] Comment on above: Order Comment: Speci men Type: BLOOD SPECIMENOrdering Facility: [facility] Address: [address] [place] [address] Performed By: #### 5 8410-2 ####[facility] [id number] [place] [address] [place] Nucleated RBC (Bld) [#/Vol] 10*3/uL Normal <0.01 [facility] Comment on above: Order Comment: Speci men Type: BLOOD SPECIMENOrdering Facility: [facility] Address: [address] [place] [address] Performed By: #### 5 8410-2 ####[facility] [id number] [place] [address] [place] Platelet mean volume (Bld) [Entitic vol] 11.0 fL Normal 9.0-12.7 [facility] Comment on above: Order Comment: Speci men Type: BLOOD SPECIMENOrdering Facility: [facility] Address: [address] [place] [address] Performed By: #### 5 8410-2 ####[facility] LABCLIA [id number] [place] [address] [place] Platelets (Bld) [#/Vol] 150 10*3/uL Normal 150-400 [facility] Comment on above: Order Comment: Speci men Type: BLOOD SPECIMENOrdering Facility: [facility] Address: [address] [place] [address] Performed By: #### 5 8410-2 ####[facility] LABCLIA [id number] [place] [address] [place] RBC (Bld) [#/Vol] 4.50 10*6/uL Normal 4.20-6.00 [facility] Comment on above: Order Comment: Speci men Type: BLOOD SPECIMENOrdering Facility: [facility] Address: [address] [place] [address] Performed By: #### 5 8410-2 ####[facility] LABCLIA [id number] [place] [address] [place] WBC (Bld) [#/Vol] 6.09 10*3/uL Normal 3.70-11.00 [facility] Comment on above: Order Comment: Speci men Type: BLOOD SPECIMENOrdering Facility: [facility] [facility] Address: [address] [place] [address] Performed By: #### 5 8410-2 ####[facility] LABCLIA [id number] [place] [address] [place] CONSULTon 07-23-2024 CONSULT Normal [facility] Magnesium SerPl-mCncon 07-23 Magnesium [Mass/Vol] 2.3 mg/dL Normal 1.7-2.3 [facility] Comment on above: Order Comment: Speci men Type: BLOOD SPECIMENOrdering Facility: [facility] Address: [address] [place], [place] [id number] Performed By: #### 2 4321-2, 46373-6 ####[facility] LABCLIA [id number] [place] [id number] [place] NM CARDIAC AMYLOID SPECT/paratransit driver n 07-23-2024 NM CARDIAC AMYLOID SPECT/CT Normal [facility] NUTRITIONon 07-23-2024 NUTRITION Normal [facility] Basic metabolic 2000 panelon 07-22-2024 Anion gap [Moles/Vol] 14 mmol/L Normal 8-15 [facility] Comment on above: Order Comment: Speci men Type: BLOOD SPECIMENOrdering Facility: [facility] Address: [address] [place] [address] Performed By: #### 2 4321-2 ####[facility] LABCLIA [id number] [place] [address] [place] Calcium [Mass/Vol] 9.1 mg/dL Normal 8.5-10.2 [facility] Comment on above: Order Comment: Speci men Type: BLOOD SPECIMENOrdering Facility: [facility] Address: [address] [place] [address] Performed By: #### 2 4321-2 ####[facility] LABCLIA [id number] [place] [address] [place] Chloride [Moles/Vol] 100 mmol/L Normal 98-107 [facility] Comment on above: Order Comment: Speci men Type: BLOOD SPECIMENOrdering Facility: [facility] Address: [address] [place] [address] Performed By: #### 2 4321-2 ####[facility] LABCLIA [id number] [place] [id number] [place] CO2 [Moles/Vol] 25 mmol/L Normal 22-30 [facility] Comment on above: Order Comment: Speci men Type: BLOOD SPECIMENOrdering Facility: [facility] Address: [address] [place] [address] Performed By: #### 2 4321-2 ####[facility] LABCLIA [id number] [place] [address] [place] Creatinine [Mass/Vol] 2.30 mg/dL High 0.73-1.22 [facility] Comment on above: Order Comment: Speci men Type: BLOOD SPECIMENOrdering Facility: [facility] Address: [address] [place] [address] Performed By: #### 2 4321-2 ####[facility] LABIA [id number] [place] [address] [place] Creatinine and Glomerular filtration rate.predicted panel (S/P/Bld) 28 mL/min/1.73m??? Low >=60 [facility] Comment on above: Order Comment: Speci men Type: BLOOD SPECIMENOrdering Facility: [facility] Address: [address] [place] [address] Result Comment: Etta mated Glomerular Filtration Rate [...] reflect actual GFR. Performed By: #### 2 4321-2 ####[facility] LABCLIA [id number] [place] [id number] [place] Glucose [Mass/Vol] 114 mg/dL High 74-99 [facility] Comment on above: Order Comment: Speci men Type: BLOOD SPECIMENOrdering Facility: [facility] Address: [address] [place] [address] Result Comment: The [place] [employer] (ADA) provides guidance for cutoff values for fasting glucose and random glucose. The ADA defines fasting as no caloric intake for at least 8 hours. Fasting plasma glucose results between 100 to 125 mg/dL indicate increased risk for diabetes (prediabetes).Fasting plasma glucose results greater than or equal to 126 mg/dL meet the criteria for diagnosis of diabetes. In the absence of unequivocal hyperglycemia, results should be confirmed by repeat testing. In a patient with classic symptoms of hyperglycemia or hyperglycemic crisis, random plasma glucose results greater than or equal to 200 mg/dL meet the criteria for diagnosis of diabetes.Reference: Standards of Medical Care in Diabetes 2016, [place] [employer]. Diabetes Care. 2016.39(Suppl 1). Performed By: #### 2 4321-2 ####[facility] LABIA [id number] [place] [address] [place] Potassium [Moles/Vol] 3.9 mmol/L Normal 3.7-5.1 [facility] Comment on above: Order Comment: Speci men Type: BLOOD SPECIMENOrdering Facility: [facility] Address: [address] [place] [address] Performed By: #### 2 4321-2 ####[facility] LABIA [id number] [place] [address] [place] Sodium [Moles/Vol] 139 mmol/L Normal 136-144 [facility] Comment on above: Order Comment: Rozi may Type: BLOOD SPECIMENOrdering Facility: [facility] Address: [address] [place] [address] Performed By: #### 2 4321-2 ####[facility] LABIA [id number] [place] [address] [place] Urea nitrogen [Mass/Vol] 39 mg/dL High 9-24 [facility] Comment on above: Order Comment: Rozi men Type: BLOOD SPECIMENOrdering Facility: [facility] Address: [address] [place] [address] Performed By: #### 2 4321-2 ####[facility] LABCLIA [id number] [place] [address] [place] CASE MGT INIT ASSESon 2023 CASE MGT INIT ASSES Normal [facility] CBC panel Auto (Bld)on 07-22 Erythrocyte distribution width (RBC) [Ratio] 17.0 % High 11.5-15.0 [facility] Comment on above: Order Comment: Speci men Type: BLOOD SPECIMENOrdering Facility: [facility] Address: [address] [place] [address] Performed By: #### 5 8410-2 ####[facility] LABIA [id number] [place] [address] [place] Hematocrit (Bld) [Volume fraction] 41.8 % Normal 39.0-51.0 [facility] Comment on above: Order Comment: Speci men Type: BLOOD SPECIMENOrdering Facility: [facility] Address: [address] [place] [address] Performed By: #### 5 8410-2 ####[facility] LABIA [id number] [place] [address] [place] Hemoglobin (Bld) [Mass/Vol] 13.3 g/dL Normal 13.0-17.0 [facility] Comment on above: Order Comment: Speci men Type: BLOOD SPECIMENOrdering Facility: [facility] Address: [address] [place] [address] Performed By: #### 5 8410-2 ####[facility] LABIA [id number] [place] [address] [place] MCH (RBC) [Entitic mass] 29.0 pg Normal 26.0-34.0 [facility] Comment on above: Order Comment: Speci men Type: BLOOD SPECIMENOrdering Facility: [facility] Address: [address] [place] [address] Performed By: #### 5 8410-2 ####[facility] LABIA [id number] [place] [address] [place] MCHC (RBC) [Mass/Vol] 31.8 g/dL Normal 30.5-36.0 [facility] Comment on above: Order Comment: Speci men Type: BLOOD SPECIMENOrdering Facility: [facility] Address: [address] [place] [address] Performed By: #### 5 8410-2 ####[facility] LABIA [id number] [place] [address] [place] MCV (RBC) [Entitic vol] 91.1 fL Normal 80.0-100.0 [facility] Comment on above: Order Comment: Speci men Type: BLOOD SPECIMENOrdering Facility: [facility] Address: [address] [place] [address] Performed By: #### 5 8410-2 ####[facility] LABIA [id number] [place] [address] [place] Nucleated RBC (Bld) [#/Vol] 10*3/uL Normal <0.01 [facility] Comment on above: Order Comment: Speci men Type: BLOOD SPECIMENOrdering Facility: [facility] Address: [address] [place] [address] Performed By: #### 5 8410-2 ####[facility] LABIA [id number] [place] [address] [place] Platelet mean volume (Bld) [Entitic vol] 10.9 fL Normal 9.0-12.7 [facility] Comment on above: Order Comment: Speci men Type: BLOOD SPECIMENOrdering Facility: [facility] Address: [address] [place] [address] Performed By: #### 5 8410-2 ####[facility] LABIA [id number] [place] [address] [place] Platelets (Bld) [#/Vol] 171 10*3/uL Normal 150-400 [facility] Comment on above: Order Comment: Speci men Type: BLOOD SPECIMENOrdering Facility: [facility] Address: [address] [place], [place] [address] Performed By: #### 5 8410-2 ####[facility] LABIA [id number] [address] [address] [place] RBC (Bld) [#/Vol] 4.59 10*6/uL Normal 4.20-6.00 [facility] Comment on above: Order Comment: Speci men Type: BLOOD SPECIMENOrdering Facility: [facility] Address: [address] [place] [address] Performed By: #### 5 8410-2 ####[facility] LABIA [id number] [place] [id number] [place] WBC (Bld) [#/Vol] 5.01 10*3/uL Normal 3.70-11.00 [facility] Comment on above: Order Comment: Speci men Type: BLOOD SPECIMENOrdering Facility: [facility] Address: [address] [place] [address] Performed By: #### 5 8410-2 ####[facility] LABIA [id number] [place] [id number] [place] ECG COMPLETEon 07-22-2024 ECG COMPLETE Normal [facility] HOLTER 24 HOUR J2on 07-22-20 24 HOLTER 24 HOUR J2 Normal [facility] IMMUNOFIXATION SCREEN, SERUM on 07-22-2024 MPA RESULT No M protein is identified. Normal No M protein is identified. [facility] Comment on above: Order Comment: Speci men Type: BLOOD SPECIMENOrdering Facility: [facility] Address: [address] [place] [address] Performed By: #### I [facility] ####[facility] LABIA [id number] [place] [id number] [place] STAFF REVIEW (MPA) Reviewed by Kinga Leonard MD Normal [facility] Comment on above: Order Comment: Speci men Type: BLOOD SPECIMENOrdering Facility: [facility] Address: [address] [place] [address] Performed By: #### I FESC ####[facility] LABIA [id number] [place] [address] [place] KAPPA/HELM,FREE,SERon 2023 Immunoglobulin light chains.kappa.free (S) [Mass/Vol] 55.3 mg/L High 3.3-19.4 [facility] Comment on above: Order Comment: Speci men Type: BLOOD SPECIMENOrdering Facility: [facility] Address: [address] [place] [address] Result Comment: Rare ly, increased serum free light chains levels may not be detected or accurately quantified due to prozone phenomenon or in high viscosity samples using this immunoturbidimetric assay. Correlation with other laboratory results and clinical findings is recommended.The [place] Free Light Chain was performed using the Binding Site Optilite immunoturbidimetric method. Result obtained with different assay methods or kits cannot be used interchangeably. Performed By: #### K LFRS ####[facility] LABIA [id number] [place] [address] [place] Immunoglobulin light chains.kappa/Immuno globulin light chains.lambda (S) [Mass ratio] 0.93 Normal 0.26-1.65 [facility] Comment on above: Order Comment: Speci men Type: BLOOD SPECIMENOrdering Facility: [facility] Address: [address] [place] [address] Performed By: #### K LFRS ####[facility] LABIA [id number] [place] [address] [place] Immunoglobulin light chains.lambda.free [Mass/Vol] 59.7 mg/L High 5.7-26.3 [facility] Comment on above: Order Comment: Speci men Type: BLOOD SPECIMENOrdering Facility: [facility] Address: [address] [place] [address] Result Comment: Rare ly, increased serum free light chains levels may not be detected or accurately quantified due to prozone phenomenon or in high viscosity samples using this immunoturbidimetric assay. Correlation with other laboratory results and clinical findings is recommended.The [place] Free Light Chain was performed using the Binding Site Optilite immunoturbidimetric method. Result obtained with different assay methods or kits cannot be used interchangeably. Performed By: #### K LFRS ####[facility] LABIA [id number] [place] [address] [place] MONOCLONAL PROT UR W/INTERPo n 07-22-2024 STAFF REVIEW (UMPA) Reviewed by Kinga Leonard MD Normal [facility] Comment on above: Order Comment: Speci men Type: URINE SPECIMENOrdering Facility: [facility] Address: [address] [place] [address] Performed By: #### U RMPA ####[facility] LABIA [id number] [address] [place] UMPA RESULT No M protein is identified. Normal No M protein is identified. [facility] Comment on above: Order Comment: Speci men Type: URINE SPECIMENOrdering Facility: [facility] Address: [address] [place] [address] Performed By: #### U RMPA ####[facility] LABIA [id number] [place] [address] [place] Magnesium SerPl-mCncon 07-22 Magnesium [Mass/Vol] 2.4 mg/dL High 1.7-2.3 [facility] Comment on above: Order Comment: Speci men Type: BLOOD SPECIMENOrdering Facility: [facility] Address: [address] [place] [address] Performed By: #### 1 9123-9 ####[facility] LABIA [id number] [place] [address] [place] Prot/Creat Uron 07-22-2024 Protein/Creatinine (U) [Mass ratio] 0.36 mg/mg High <0.15 [facility] Comment on above: Order Comment: Speci men Type: URINE SPECIMENOrdering Facility: [facility] Address: [address] [place] [address] Result Comment: Adul t Proteinuria Categories:<0.15 mg/mg is considered normal to mildly increased0.15 - 0.50 mg/mg is considered moderately increased>0.50 mg/mg is considered severely increasedKDIGO. (2013). KDIGO 2012 Clinical Practice Guideline for the Evaluation and Management of Chronic Kidney Disease. Official Journal of the International Society of Nephrology, 3(1), 1-150. Performed By: #### 2 890-2 ####[facility] [id number] [place] [id number] [place] Protein/Creatinine (U) [Mass ratio]on 07-22-2024 Creatinine (U) [Mass/Vol] 30.5 mg/dL Normal 20.0-300.0 [facility] Comment on above: Order Comment: Speci men Type: URINE SPECIMENOrdering Facility: [facility] Address: [address] [place] [address] Performed By: #### 2 890-2 ####[facility] [id number] [place] [address] [place] Protein (U) [Mass/Vol] 11 mg/dL Normal 0-20 [facility] Comment on above: Order Comment: Speci men Type: URINE SPECIMENOrdering Facility: [facility] Address: [address] [place], [place] [address] Performed By: #### 2 890-2 ####[facility] LABIA [id number] [address] [address] [place] THERAPY NTon 07-22-2024 THERAPY NT Normal [facility] TYPE + SCREENon 07-22-2024 ABO O Normal [facility] Comment on above: Order Comment: Speci men Type: BLOOD SPECIMENOrdering Facility: [facility] Address: [address] [place] [address] Performed By: #### T SCR ####[facility] BANKCLIA [id number] [place] [address] [place] Rh Nom (Bld) Positive Normal [facility] Comment on above: Order Comment: Speci men Type: BLOOD SPECIMENOrdering Facility: [facility] Address: [address] [place] [address] Performed By: #### T SCR ####[facility] BLO[facility]ANKCLIA [id number] [address] [place] TYPE AND SCREEN EXPIRATION 07/25/2024 23:59 Normal [facility] Comment on above: Order Comment: Speci men Type: BLOOD SPECIMENOrdering Facility: [facility] Address: [address] [place] [address] Performed By: #### T SCR ####[facility] BLO[facility] BANKCLIA [id number] [place] [address] [place] CBC W Auto Differential pane l (Bld)on 07-21-2024 Basophils (Bld) [#/Vol] 0.04 10*3/uL Normal <0.11 [facility] Comment on above: Order Comment: Speci men Type: BLOOD SPECIMENOrdering Facility: [facility] Address: [address] [place] [address] Performed By: #### 5 7021-8 ####[facility] LABCLIA [id number] [place] [address] [place] Basophils/100 WBC (Bld) 0.7 % Normal [facility] Comment on above: Order Comment: Speci men Type: BLOOD SPECIMENOrdering Facility: [facility] Address: [address] [place] [address] Performed By: #### 5 7021-8 ####[facility] LABCLIA [id number] [place] [address] [place] Differential cell count method Nom (Bld) Auto Normal [facility] Comment on above: Order Comment: Speci men Type: BLOOD SPECIMENOrdering Facility: [facility] Address: [address] [place] [address] Performed By: #### 5 7021-8 ####[facility] LABCLIA [id number] [place] [address] [place] Eosinophils (Bld) [#/Vol] 0.08 10*3/uL Normal <0.46 [facility] Comment on above: Order Comment: Speci men Type: BLOOD SPECIMENOrdering Facility: [facility] Address: [address] [place] [address] Performed By: #### 5 7021-8 ####[facility] LABCLIA [id number] [place] [address] [place] Eosinophils/100 WBC (Bld) 1.4 % Normal [facility] Comment on above: Order Comment: Speci men Type: BLOOD SPECIMENOrdering Facility: [facility] Address: [address] [place] [address] Performed By: #### 5 7021-8 ####[facility] LABCLIA [id number] [place] [address] [place] Erythrocyte distribution width (RBC) [Ratio] 17.0 % High 11.5-15.0 [facility] Comment on above: Order Comment: Speci men Type: BLOOD SPECIMENOrdering Facility: [facility] Address: [address] [place] [address] Performed By: #### 5 7021-8 ####[facility] LABCLIA [id number] [place] [address] [place] Hematocrit (Bld) [Volume fraction] 40.7 % Normal 39.0-51.0 [facility] Comment on above: Order Comment: Speci men Type: BLOOD SPECIMENOrdering Facility: [facility] Address: [address] [place] [address] Performed By: #### 5 7021-8 ####[facility] LABCLIA [id number] [place] [address] [place] Hemoglobin (Bld) [Mass/Vol] 12.8 g/dL Low 13.0-17.0 [facility] Comment on above: Order Comment: Speci men Type: BLOOD SPECIMENOrdering Facility: [facility] Address: [address] [place] [address] Performed By: #### 5 7021-8 ####[facility] LABCLIA [id number] [place] [address] [place] Immature granulocytes (Bld) [#/Vol] 10*3/uL Normal <0.10 [facility] Comment on above: Order Comment: Speci men Type: BLOOD SPECIMENOrdering Facility: [facility] Address: [address] [place] [address] Performed By: #### 5 7021-8 ####[facility] LABCLIA [id number] [place] [address] [place] Immature granulocytes/100 WBC (Bld) 0.2 % Normal [facility] Comment on above: Order Comment: Speci men Type: BLOOD SPECIMENOrdering Facility: [facility] Address: [address] [place] [address] Performed By: #### 5 7021-8 ####[facility] LABIA [id number] [place] [address] [place] Lymphocytes (Bld) [#/Vol] 0.88 10*3/uL Low 1.00-4.00 [facility] Comment on above: Order Comment: Speci men Type: BLOOD SPECIMENOrdering Facility: [facility] Address: [address] [place] [address] Performed By: #### 5 7021-8 ####[facility] LABCLIA [id number] [place] [address] [place] Lymphocytes/100 WBC (Bld) 15.8 % Normal [facility] Comment on above: Order Comment: Speci men Type: BLOOD SPECIMENOrdering Facility: [facility] Address: [address] [place] [address] Performed By: #### 5 7021-8 ####[facility] [id number] [place] [address] [place] MCH (RBC) [Entitic mass] 28.2 pg Normal 26.0-34.0 [facility] Comment on above: Order Comment: Speci men Type: BLOOD SPECIMENOrdering Facility: [facility] Address: [address] [place] [address] Performed By: #### 5 7021-8 ####[facility] [id number] [place] [address] [place] MCHC (RBC) [Mass/Vol] 31.4 g/dL Normal 30.5-36.0 [facility] Comment on above: Order Comment: Speci men Type: BLOOD SPECIMENOrdering Facility: [facility] Address: [address] [place] [address] Performed By: #### 5 7021-8 ####[facility] [id number] [place] [address] [place] MCV (RBC) [Entitic vol] 89.6 fL Normal 80.0-100.0 [facility] Comment on above: Order Comment: Speci men Type: BLOOD SPECIMENOrdering Facility: [facility] Address: [address] [place] [address] Performed By: #### 5 7021-8 ####[facility] [id number] [place] [address] [place] Monocytes (Bld) [#/Vol] 0.62 10*3/uL Normal <0.87 [facility] Comment on above: Order Comment: Speci men Type: BLOOD SPECIMENOrdering Facility: [facility] Address: [address] [place] [address] Performed By: #### 5 7021-8 ####[facility] LABCLIA [id number] [address] [address] [place] Monocytes/100 WBC (Bld) 11.1 % Normal [facility] Comment on above: Order Comment: Speci men Type: BLOOD SPECIMENOrdering Facility: [facility] Address: [address] [place] [address] Performed By: #### 5 7021-8 ####[facility] LABCLIA [id number] [place] [address] [place] Neutrophils (Bld) [#/Vol] 3.95 10*3/uL Normal 1.45-7.50 [facility] Comment on above: Order Comment: Speci men Type: BLOOD SPECIMENOrdering Facility: [facility] Address: [address] [place] [address] Performed By: #### 5 7021-8 ####[facility] LABCLIA [id number] [place] [address] [place] Neutrophils/100 WBC (Bld) 70.8 % Normal [facility] Comment on above: Order Comment: Speci men Type: BLOOD SPECIMENOrdering Facility: [facility] Address: [address] [place] [address] Performed By: #### 5 7021-8 ####[facility] LABCLIA [id number] [place] [address] [place] Nucleated RBC (Bld) [#/Vol] 10*3/uL Normal <0.01 [facility] Comment on above: Order Comment: Speci men Type: BLOOD SPECIMENOrdering Facility: [facility] Address: [address] [place] [address] Performed By: #### 5 7021-8 ####[facility] LABCLIA [id number] [address] [address] [place] Nucleated RBC/100 WBC (Bld) [Ratio] 0.0 /100 WBC Normal [facility] Comment on above: Order Comment: Speci men Type: BLOOD SPECIMENOrdering Facility: [facility] Address: [address] [place] [address] Performed By: #### 5 7021-8 ####[facility] LABIA [id number] [place] [address] [place] Platelet mean volume (Bld) [Entitic vol] 10.2 fL Normal 9.0-12.7 [facility] Comment on above: Order Comment: Speci men Type: BLOOD SPECIMENOrdering Facility: [facility] Address: [address] [place] [address] Performed By: #### 5 7021-8 ####[facility] LABIA [id number] [place] [address] [place] Platelets (Bld) [#/Vol] 161 10*3/uL Normal 150-400 [facility] Comment on above: Order Comment: Speci men Type: BLOOD SPECIMENOrdering Facility: [facility] Address: [address] [place] [address] Performed By: #### 5 7021-8 ####[facility] LABIA [id number] [place] [address] [place] RBC (Bld) [#/Vol] 4.54 10*6/uL Normal 4.20-6.00 [facility] Comment on above: Order Comment: Speci men Type: BLOOD SPECIMENOrdering Facility: [facility] Address: [address] [place] [address] Performed By: #### 5 7021-8 ####[facility] LABIA [id number] [place] [address] [place] WBC (Bld) [#/Vol] 5.58 10*3/uL Normal 3.70-11.00 [facility] Comment on above: Order Comment: Speci men Type: BLOOD SPECIMENOrdering Facility: [facility] Address: [address] [place] [address] Performed By: #### 5 7021-8 ####[facility] LABIA [id number] [place] [address] [place] Comprehensive metabolic 2000 panelon 07-21-2024 Albumin [Mass/Vol] 3.6 g/dL Low 3.9-4.9 [facility] Comment on above: Order Comment: Speci men Type: BLOOD SPECIMENOrdering Facility: [facility] Address: [address] [place] [address] Performed By: #### L [id number], 30915-6, 65583-5, 34185-0 ####[facility] LABCLIA [id number] [place] [address] [place] ALP [Catalytic activity/Vol] 92 U/L Normal 38-113 [facility] Comment on above: Order Comment: Speci men Type: BLOOD SPECIMENOrdering Facility: [facility] Address: [address] [place] [address] Performed By: #### L [id number], 44937-5, 21291-2, 40393-4 ####[facility] LABIA [id number] [place] [address] [place] ALT [Catalytic activity/Vol] 11 U/L Normal 10-54 [facility] Comment on above: Order Comment: Speci men Type: BLOOD SPECIMENOrdering Facility: [facility] Address: [address] [place] [address] Performed By: #### L OF5445, 58599-5, 54161-5, 86168-2 ####[facility] LABIA [id number] [place] [address] [place] Anion gap [Moles/Vol] 12 mmol/L Normal 8-15 [facility] Comment on above: Order Comment: Speci men Type: BLOOD SPECIMENOrdering Facility: [facility] Address: [address] [place] [address] Performed By: #### L [id number], 57833-7, 22402-1, 41147-4 ####[facility] LABCLIA [id number] [place] [id number] [place] AST [Catalytic activity/Vol] 21 U/L Normal 14-40 [facility] Comment on above: Order Comment: Speci men Type: BLOOD SPECIMENOrdering Facility: [facility] Address: [address] [place] [address] Performed By: #### L [id number], 26290-3, 24846-3, 39724-3 ####[facility] LABCLIA [id number] [place] [address] [place] Bilirubin [Mass/Vol] 0.9 mg/dL Normal 0.2-1.3 [facility] Comment on above: Order Comment: Speci men Type: BLOOD SPECIMENOrdering Facility: [facility] Address: [address] [place] [address] Performed By: #### L [id number], 32188-5, 22059-0, 19251-9 ####[facility] LABCLIA [id number] [place] [address] [place] Calcium [Mass/Vol] 9.0 mg/dL Normal 8.5-10.2 [facility] Comment on above: Order Comment: Speci men Type: BLOOD SPECIMENOrdering Facility: [facility] Address: [address] [place] [address] Performed By: #### L [id number], 43529-2, 22240-7, 15874-3 ####[facility] LABCLIA [id number] [place] [id number] [place] Chloride [Moles/Vol] 100 mmol/L Normal 98-107 [facility] Comment on above: Order Comment: Speci men Type: BLOOD SPECIMENOrdering Facility: [facility] Address: [address] [place] [address] Performed By: #### L [id number], 37867-3, 53975-5, 36847-2 ####[facility] LABCLIA [id number] [place] [address] [place] CO2 [Moles/Vol] 25 mmol/L Normal 22-30 [facility] Comment on above: Order Comment: Speci men Type: BLOOD SPECIMENOrdering Facility: [facility] Address: [address] [place] [address] Performed By: #### L [id number], 30536-9, 36161-5, 64514-5 ####[facility] LABCLIA [id number] [place] [address] [place] Creatinine [Mass/Vol] 2.32 mg/dL High 0.73-1.22 [facility] Comment on above: Order Comment: Speci men Type: BLOOD SPECIMENOrdering Facility: [facility] Address: [address] [place] [address] Performed By: #### L [id number], 58515-5, , ####[facility] LABCLIA [id number] [place] [address] [place] Creatinine and Glomerular filtration rate.predicted panel (S/P/Bld) 27 mL/min/1.73m??? Low >=60 [facility] Comment on above: Order Comment: Speci men Type: BLOOD SPECIMENOrdering Facility: [facility] Address: [address] [place] [address] Result Comment: Etta mated Glomerular Filtration Rate [...] accurately reflect actual GFR. Performed By: #### L AL6284, 72569-4, 03720-1, 96460-2 ####[facility] LABCLIA [id number] [place] [address] [place] Glucose [Mass/Vol] 86 mg/dL Normal 74-99 [facility] Comment on above: Order Comment: Speci men Type: BLOOD SPECIMENOrdering Facility: [facility] Address: [address] [place] [address] Result Comment: The [place] [employer] (ADA) provides guidance for cutoff values for fasting glucose and random glucose. The ADA defines fasting as no caloric intake for at least 8 hours. Fasting plasma glucose results between 100 to 125 mg/dL indicate increased risk for diabetes (prediabetes).Fasting plasma glucose results greater than or equal to 126 mg/dL meet the criteria for diagnosis of diabetes. In the absence of unequivocal hyperglycemia, results should be confirmed by repeat testing. In a patient with classic symptoms of hyperglycemia or hyperglycemic crisis, random plasma glucose results greater than or equal to 200 mg/dL meet the criteria for diagnosis of diabetes.Reference: Standards of Medical Care in Diabetes 2016, [place] [employer]. Diabetes Care. 2016.39(Suppl 1). Performed By: #### L [id number], 20888-5, 00430-7, 51613-8 ####[facility] LABCLIA [id number] [place] [address] [place] Potassium [Moles/Vol] 3.6 mmol/L Low 3.7-5.1 [facility] Comment on above: Order Comment: Speci men Type: BLOOD SPECIMENOrdering Facility: [facility] Address: [address] [place] [address] Performed By: #### L [id number], 34521-9, 53917-9, 36384-5 ####[facility] LABCLIA [id number] [place] [address] [place] Protein [Mass/Vol] 6.5 g/dL Normal 6.3-8.0 [facility] Comment on above: Order Comment: Speci men Type: BLOOD SPECIMENOrdering Facility: [facility] Address: [address] [place] [address] Performed By: #### L RU9436, 47571-8, 87408-4, 57862-4 ####[facility] LABCLIA [id number] [address] [address] [place] Sodium [Moles/Vol] 137 mmol/L Normal 136-144 [facility] Comment on above: Order Comment: Speci men Type: BLOOD SPECIMENOrdering Facility: [facility] Address: [address] [place] [address] Performed By: #### L VT2821, 36674-6, 27462-0, 56476-9 ####[facility] LABCLIA [id number] [place] [id number] [place] Urea nitrogen [Mass/Vol] 40 mg/dL High 9-24 [facility] Comment on above: Order Comment: Speci men Type: BLOOD SPECIMENOrdering Facility: [facility] Address: [address] [place] [address] Performed By: #### L ON3214, 72579-6, 38352-0, 94155-1 ####[facility] LABCLIA [id number] [place] [id number] [place] [id number] 07-21-2024 ECG01 Normal [facility] ED NOTEon 07-21-2024 ED NOTE HNO ID: [id number] Author: AMY KIM RN Service: Emergency Medicine Author Type: Registered Nurse Type: ED Notes Filed: 07/21/2024 21:41 Note Text: Report called to Inocente Crenshaw received report Normal [facility] ED PROV NOTEon 07-21-2024 ED PROV NOTE Normal [facility] ED Triage Noteon 07-21-2024 ED Triage Note Normal [facility] HIGH SENSITIVITY TROPONIN T (INITIAL)on 07-21-2024 Troponin T.cardiac High sensitivity method [Mass/Vol] 65 ng/L High <12 [facility] Comment on above: Order Comment: Speci men Type: BLOOD SPECIMENOrdering Facility: [facility] Address: [address] [place] [address] Performed By: #### L CA2366, 18593-2, 66147-4, 37186-8 ####[facility] LABIA [id number] [place] [address] [place] HIGH SENSITIVITY TROPONIN T (SECOND)on 07-21-2024 Troponin T.cardiac High sensitivity method [Mass/Vol] 42 ng/L High <12 [facility] Comment on above: Order Comment: Speci men Type: BLOOD SPECIMENOrdering Facility: [facility] Address: [address] [place] [address] Performed By: #### L [id number] ####[facility] LABIA [id number] [place] [address] [place] HIGH SENSITIVITY TROPONIN T (THIRD) 3 HRS AFTER INITIALon 07-21-2024 Troponin T.cardiac High sensitivity method [Mass/Vol] 47 ng/L High <12 [facility] Comment on above: Order Comment: Speci men Type: BLOOD SPECIMENOrdering Facility: [facility] Address: [address] [place] [address] Performed By: #### L [id number] ####[facility] LABIA [id number] [place] [address] [place] HISTORY PHYSICALon HISTORY PHYSICAL Normal [facility] Magnesium SerPl-mCncon 07-21 Magnesium [Mass/Vol] 2.5 mg/dL High 1.7-2.3 [facility] Comment on above: Order Comment: Speci men Type: BLOOD SPECIMENOrdering Facility: [facility] Address: [address] [place] [address] Performed By: #### L [id number], 22041-8, 58538-5, 66116-4 ####[facility] LABIA [id number] [place] [address] [place] NT-proBNP SerPl-mCncon 07-21 Natriuretic peptide.B prohormone N-Terminal [Mass/Vol] 73900 pg/mL High <450 [facility] Comment on above: Order Comment: Speci men Type: BLOOD SPECIMENOrdering Facility: [facility] Address: [address] [place] [address] Performed By: #### L [id number], 87378-1, 75749-2, 48227-9 ####[facility] LABCLIA [id number] [place] [address] [place] XR CHEST 2V FRONTAL/LATon XR CHEST 2V FRONTAL/LAT Normal [facility] CNPNon 06-02-2024 CNPN Normal [facility] ANES POSTPROC EVALon 024 ANES POSTPROC EVAL Normal [facility] CNPNon 05-20-2024 CNPN Normal [facility] CASE MANAGEMon 05-16-2024 CASE MANAGEM Normal [facility] CBC panel Auto (Bld)on 05-16 Erythrocyte distribution width (RBC) [Ratio] 19.3 % High 11.5-15.0 [facility] Comment on above: Order Comment: Speci men Type: BLOOD SPECIMENOrdering Facility: [facility] Address: [address] [place] [address] Performed By: #### 5 8410-2 ####[facility] LABCLIA [id number] [place] [address] [place] Hematocrit (Bld) [Volume fraction] 31.8 % Low 39.0-51.0 [facility] Comment on above: Order Comment: Speci men Type: BLOOD SPECIMENOrdering Facility: [facility] Address: [address] [place] [address] Performed By: #### 5 8410-2 ####[facility] LABCLIA [id number] [place] [id number] [place] Hemoglobin (Bld) [Mass/Vol] 9.4 g/dL Low 13.0-17.0 [facility] Comment on above: Order Comment: Speci men Type: BLOOD SPECIMENOrdering Facility: [facility] Address: [address] [place] [address] Performed By: #### 5 8410-2 ####[facility] LABCLIA [id number] [place] [address] [place] MCH (RBC) [Entitic mass] 30.8 pg Normal 26.0-34.0 [facility] Comment on above: Order Comment: Speci men Type: BLOOD SPECIMENOrdering Facility: [facility] Address: [address] [place] [address] Performed By: #### 5 8410-2 ####[facility] LABCLIA [id number] [place] [address] [place] MCHC (RBC) [Mass/Vol] 29.6 g/dL Low 30.5-36.0 [facility] Comment on above: Order Comment: Speci men Type: BLOOD SPECIMENOrdering Facility: [facility] Address: [address] [place] [address] Performed By: #### 5 8410-2 ####[facility] LABCLIA [id number] [place] [address] [place] MCV (RBC) [Entitic vol] 104.3 fL High 80.0-100.0 [facility] Comment on above: Order Comment: Speci men Type: BLOOD SPECIMENOrdering Facility: [facility] Address: [address] [place] [address] Performed By: #### 5 8410-2 ####[facility] LABCLIA [id number] [place] [address] [place] Nucleated RBC (Bld) [#/Vol] 10*3/uL Normal <0.01 [facility] Comment on above: Order Comment: Speci men Type: BLOOD SPECIMENOrdering Facility: [facility] Address: [address] [place] [address] Performed By: #### 5 8410-2 ####[facility] LABCLIA [id number] [place] [address] [place] Platelet mean volume (Bld) [Entitic vol] 10.8 fL Normal 9.0-12.7 [facility] Comment on above: Order Comment: Speci men Type: BLOOD SPECIMENOrdering Facility: [facility] Address: [address] [place] [address] Performed By: #### 5 8410-2 ####[facility] LABCLIA [id number] [place] [address] [place] Platelets (Bld) [#/Vol] 158 10*3/uL Normal 150-400 [facility] Comment on above: Order Comment: Speci men Type: BLOOD SPECIMENOrdering Facility: [facility] Address: [address] [place] [address] Performed By: #### 5 8410-2 ####[facility] LABIA [id number] [place] [address] [place] RBC (Bld) [#/Vol] 3.05 10*6/uL Low 4.20-6.00 [facility] Comment on above: Order Comment: Speci men Type: BLOOD SPECIMENOrdering Facility: [facility] Address: [address] [place] [address] Performed By: #### 5 8410-2 ####[facility] LABIA [id number] [place] [address] [place] WBC (Bld) [#/Vol] 4.48 10*3/uL Normal 3.70-11.00 [facility] Comment on above: Order Comment: Speci men Type: BLOOD SPECIMENOrdering Facility: [facility] Address: [address] [place] [address] Performed By: #### 5 8410-2 ####[facility] LABIA [id number] [place] [address] [place] CNDSon 05-16-2024 CNDS Normal [facility] Renal function 2000 panelon 05-16-2024 Albumin [Mass/Vol] 3.4 g/dL Low 3.9-4.9 [facility] Comment on above: Order Comment: Speci men Type: BLOOD SPECIMENOrdering Facility: [facility] Address: [address] [place] [address] Performed By: #### 2 4362-6 ####[facility] LABCLIA [id number] [place] [address] [place] Anion gap [Moles/Vol] 9 mmol/L Normal 8-15 [facility] Comment on above: Order Comment: Speci men Type: BLOOD SPECIMENOrdering Facility: [facility] Address: [address] [place] [address] Performed By: #### 2 4362-6 ####[facility] LABCLIA [id number] [place] [address] [place] Calcium [Mass/Vol] 9.0 mg/dL Normal 8.5-10.2 [facility] Comment on above: Order Comment: Speci men Type: BLOOD SPECIMENOrdering Facility: [facility] Address: [address] [place] [address] Performed By: #### 2 4362-6 ####[facility] LABCLIA [id number] [place] [address] [place] Chloride [Moles/Vol] 105 mmol/L Normal 98-107 [facility] Comment on above: Order Comment: Speci men Type: BLOOD SPECIMENOrdering Facility: [facility] Address: [address] [place] [address] Performed By: #### 2 4362-6 ####[facility] LABCLIA [id number] [place] [id number] [place] CO2 [Moles/Vol] 25 mmol/L Normal 22-30 [facility] Comment on above: Order Comment: Speci men Type: BLOOD SPECIMENOrdering Facility: [facility] Address: [address] [place] [address] Performed By: #### 2 4362-6 ####[facility] LABIA [id number] [place] [address] [place] Creatinine [Mass/Vol] 2.06 mg/dL High 0.73-1.22 [facility] Comment on above: Order Comment: Speci men Type: BLOOD SPECIMENOrdering Facility: [facility] Address: [address] [place] [address] Performed By: #### 2 4362-6 ####[facility] LABIA [id number] [place] [address] [place] Creatinine and Glomerular filtration rate.predicted panel (S/P/Bld) 32 mL/min/1.73m??? Low >=60 [facility] Comment on above: Order Comment: Speci men Type: BLOOD SPECIMENOrdering Facility: [facility] Address: [address] [place] [address] Result Comment: Etta mated Glomerular Filtration Rate [...] reflect actual GFR. Performed By: #### 2 4362-6 ####[facility] LABIA [id number] [place] [address] [place] Glucose [Mass/Vol] 100 mg/dL High 74-99 [facility] Comment on above: Order Comment: Speci men Type: BLOOD SPECIMENOrdering Facility: [facility] Address: [address] [place] [address] Result Comment: The [place] [employer] (ADA) provides guidance for cutoff values for fasting glucose and random glucose. The ADA defines fasting as no caloric intake for at least 8 hours. Fasting plasma glucose results between 100 to 125 mg/dL indicate increased risk for diabetes (prediabetes).Fasting plasma glucose results greater than or equal to 126 mg/dL meet the criteria for diagnosis of diabetes. In the absence of unequivocal hyperglycemia, results should be confirmed by repeat testing. In a patient with classic symptoms of hyperglycemia or hyperglycemic crisis, random plasma glucose results greater than or equal to 200 mg/dL meet the criteria for diagnosis of diabetes.Reference: Standards of Medical Care in Diabetes 2016, [place] [employer]. Diabetes Care. 2016.39(Suppl 1). Performed By: #### 2 4362-6 ####[facility] LABCLIA [id number] [place] [address] [place] Phosphate [Mass/Vol] 2.4 mg/dL Low 2.7-4.8 [facility] Comment on above: Order Comment: Speci men Type: BLOOD SPECIMENOrdering Facility: [facility] Address: [address] [place] [address] Performed By: #### 2 4362-6 ####[facility] LABIA [id number] [place] [address] [place] Potassium [Moles/Vol] 3.9 mmol/L Normal 3.7-5.1 [facility] Comment on above: Order Comment: Speci men Type: BLOOD SPECIMENOrdering Facility: [facility] Address: [address] [place] [address] Performed By: #### 2 4362-6 ####[facility] LABCLIA [id number] [place] [address] [place] Sodium [Moles/Vol] 139 mmol/L Normal 136-144 [facility] Comment on above: Order Comment: Speci men Type: BLOOD SPECIMENOrdering Facility: [facility] Address: [address] [place] [address] Performed By: #### 2 4362-6 ####[facility] LABCLIA [id number] [place] [address] [place] Urea nitrogen [Mass/Vol] 23 mg/dL Normal 9-24 [facility] Comment on above: Order Comment: Speci men Type: BLOOD SPECIMENOrdering Facility: [facility] Address: [address] [place] [address] Performed By: #### 2 4362-6 ####[facility] LABCLIA [id number] [address] [address] [place] CASE MANAGEMon 05-15-2024 CASE MANAGEM Normal [facility] CASE MANAGEM Normal [facility] NUTRITIONon 05-15-2024 NUTRITION Normal [facility] PT EDon 05-15-2024 PT ED Normal [facility] Renal function 2000 panelon 05-15-2024 Albumin [Mass/Vol] 3.2 g/dL Low 3.9-4.9 [facility] Comment on above: Order Comment: Speci men Type: BLOOD SPECIMENOrdering Facility: [facility] Address: [address] [place] [address] Performed By: #### 2 4362-6 ####[facility] LABCLIA [id number] [place] [id number] [place] Anion gap [Moles/Vol] 9 mmol/L Normal 8-15 [facility] Comment on above: Order Comment: Speci men Type: BLOOD SPECIMENOrdering Facility: [facility] Address: [address] [place] [address] Performed By: #### 2 4362-6 ####[facility] LABCLIA [id number] [address] [address] [place] Calcium [Mass/Vol] 8.7 mg/dL Normal 8.5-10.2 [facility] Comment on above: Order Comment: Speci men Type: BLOOD SPECIMENOrdering Facility: [facility] Address: [address] [place] [address] Performed By: #### 2 4362-6 ####[facility] LABCLIA [id number] [facility] [place] [id number] [place] Chloride [Moles/Vol] 107 mmol/L Normal 98-107 [facility] Comment on above: Order Comment: Speci men Type: BLOOD SPECIMENOrdering Facility: [facility] Address: [address] [place] [address] Performed By: #### 2 4362-6 ####[facility] LABIA [id number] [place] [address] [place] CO2 [Moles/Vol] 24 mmol/L Normal 22-30 [facility] Comment on above: Order Comment: Speci men Type: BLOOD SPECIMENOrdering Facility: [facility] Address: [address] [place] [address] Performed By: #### 2 4362-6 ####[facility] LABIA [id number] [place] [address] [place] Creatinine [Mass/Vol] 2.26 mg/dL High 0.73-1.22 [facility] Comment on above: Order Comment: Speci men Type: BLOOD SPECIMENOrdering Facility: [facility] Address: [address] [place] [address] Performed By: #### 2 4362-6 ####[facility] LABIA [id number] [place] [address] [place] Creatinine and Glomerular filtration rate.predicted panel (S/P/Bld) 28 mL/min/1.73m??? Low >=60 [facility] Comment on above: Order Comment: Speci men Type: BLOOD SPECIMENOrdering Facility: [facility] Address: [address] [place] [address] Result Comment: Etta mated Glomerular Filtration Rate [...] reflect actual GFR. Performed By: #### 2 4362-6 ####[facility] LABCLIA [id number] [place] [address] [place] Glucose [Mass/Vol] 120 mg/dL High 74-99 [facility] Comment on above: Order Comment: Speci men Type: BLOOD SPECIMENOrdering Facility: [facility] Address: [address] [place] [address] Result Comment: The [place] [employer] (ADA) provides guidance for cutoff values for fasting glucose and random glucose. The ADA defines fasting as no caloric intake for at least 8 hours. Fasting plasma glucose results between 100 to 125 mg/dL indicate increased risk for diabetes (prediabetes).Fasting plasma glucose results greater than or equal to 126 mg/dL meet the criteria for diagnosis of diabetes. In the absence of unequivocal hyperglycemia, results should be confirmed by repeat testing. In a patient with classic symptoms of hyperglycemia or hyperglycemic crisis, random plasma glucose results greater than or equal to 200 mg/dL meet the criteria for diagnosis of diabetes.Reference: Standards of Medical Care in Diabetes 2016, [place] [employer]. Diabetes Care. 2016.39(Suppl 1). Performed By: #### 2 4362-6 ####[facility] LABIA [id number] [place] [address] [place] Phosphate [Mass/Vol] 2.8 mg/dL Normal 2.7-4.8 [facility] Comment on above: Order Comment: Speci men Type: BLOOD SPECIMENOrdering Facility: [facility] Address: [address] [place] [address] Performed By: #### 2 4362-6 ####[facility] LABIA [id number] [place] [address] [place] Potassium [Moles/Vol] 3.8 mmol/L Normal 3.7-5.1 [facility] Comment on above: Order Comment: Speci men Type: BLOOD SPECIMENOrdering Facility: [facility] Address: [address] [place] [address] Performed By: #### 2 4362-6 ####[facility] LABCLIA [id number] [place] [id number] [place] Sodium [Moles/Vol] 140 mmol/L Normal 136-144 [facility] Comment on above: Order Comment: Speci men Type: BLOOD SPECIMENOrdering Facility: [facility] Address: [address] [place] [address] Performed By: #### 2 4362-6 ####[facility] LABCLIA [id number] [place] [id number] [place] Urea nitrogen [Mass/Vol] 24 mg/dL Normal 9-24 [facility] Comment on above: Order Comment: Speci men Type: BLOOD SPECIMENOrdering Facility: [facility] Address: [address] [place] [address] Performed By: #### 2 4362-6 ####[facility] LABIA [id number] [place] [address] [place] THERAPY NTon 05-15-2024 THERAPY NT Normal [facility] ALLIED HEALTHon 05-14-2024 ALLIED HEALTH Normal [facility] ANES PRE-OPon 05-14-2024 ANES PRE-OP Normal [facility] BRIEF OP NOTon 05-14-2024 BRIEF OP NOT Normal [facility] CBC panel Auto (Bld)on 05-14 Erythrocyte distribution width (RBC) [Ratio] 19.9 % High 11.5-15.0 [facility] Comment on above: Order Comment: Speci men Type: BLOOD SPECIMENOrdering Facility: [facility] Address: [address] [place] [address] Performed By: #### 5 8410-2 ####[facility] LABCLIA [id number] [place] [address] [place] Hematocrit (Bld) [Volume fraction] 29.2 % Low 39.0-51.0 [facility] Comment on above: Order Comment: Speci men Type: BLOOD SPECIMENOrdering Facility: [facility] Address: [address] [place] [address] Performed By: #### 5 8410-2 ####[facility] LABIA [id number] [place] [address] [place] Hemoglobin (Bld) [Mass/Vol] 8.6 g/dL Low 13.0-17.0 [facility] Comment on above: Order Comment: Speci men Type: BLOOD SPECIMENOrdering Facility: [facility] Address: [address] [place] [address] Performed By: #### 5 8410-2 ####[facility] LABIA [id number] [place] [address] [place] MCH (RBC) [Entitic mass] 29.7 pg Normal 26.0-34.0 [facility] Comment on above: Order Comment: Speci men Type: BLOOD SPECIMENOrdering Facility: [facility] Address: [address] [place] [address] Performed By: #### 5 8410-2 ####[facility] [id number] [place] [address] [place] MCHC (RBC) [Mass/Vol] 29.5 g/dL Low 30.5-36.0 [facility] Comment on above: Order Comment: Speci men Type: BLOOD SPECIMENOrdering Facility: [facility] Address: [address] [place] [address] Performed By: #### 5 8410-2 ####[facility] LABIA [id number] [place] [address] [place] MCV (RBC) [Entitic vol] 100.7 fL High 80.0-100.0 [facility] Comment on above: Order Comment: Speci men Type: BLOOD SPECIMENOrdering Facility: [facility] Address: [address] [place] [address] Performed By: #### 5 8410-2 ####[facility] [id number] [place] [address] [place] Nucleated RBC (Bld) [#/Vol] 10*3/uL Normal <0.01 [facility] Comment on above: Order Comment: Speci men Type: BLOOD SPECIMENOrdering Facility: [facility] Address: [address] [place] [address] Performed By: #### 5 8410-2 ####[facility] LABCLIA [id number] [place] [address] [place] Platelet mean volume (Bld) [Entitic vol] 10.3 fL Normal 9.0-12.7 [facility] Comment on above: Order Comment: Speci men Type: BLOOD SPECIMENOrdering Facility: [facility] Address: [address] [place] [address] Performed By: #### 5 8410-2 ####[facility] LABCLIA [id number] [place] [address] [place] Platelets (Bld) [#/Vol] 158 10*3/uL Normal 150-400 [facility] Comment on above: Order Comment: Speci men Type: BLOOD SPECIMENOrdering Facility: [facility] Address: [address] [place] [address] Performed By: #### 5 8410-2 ####[facility] LABCLIA [id number] [place] [address] [place] RBC (Bld) [#/Vol] 2.90 10*6/uL Low 4.20-6.00 [facility] Comment on above: Order Comment: Speci men Type: BLOOD SPECIMENOrdering Facility: [facility] Address: [address] [place] [address] Performed By: #### 5 8410-2 ####[facility] LABCLIA [id number] [place] [address] [place] WBC (Bld) [#/Vol] 4.27 10*3/uL Normal 3.70-11.00 [facility] Comment on above: Order Comment: Speci men Type: BLOOD SPECIMENOrdering Facility: [facility] Address: [address] [place] [address] Performed By: #### 5 8410-2 ####[facility] LABIA [id number] [place] [address] [place] Magnesium SerPl-mCncon 05-14 Magnesium [Mass/Vol] 2.1 mg/dL Normal 1.7-2.3 [facility] Comment on above: Order Comment: Speci men Type: BLOOD SPECIMENOrdering Facility: [facility] Address: [address] [place] [address] Performed By: #### 1 9123-9, 52334-0 ####[facility] [id number] [place] [address] [place] PTT, ANTICOAGULANT THERAPYon 05-14-2024 aPTT Coag (PPP) [Time] 37.6 s High 23.0-32.4 [facility] Comment on above: Order Comment: Speci men Type: BLOOD SPECIMENOrdering Facility: [facility] Address: [address] [place] [address] Performed By: #### P TTA ####[facility] LABIA [id number] [place] [address] [place] Renal function 2000 panelon 05-14-2024 Albumin [Mass/Vol] 3.3 g/dL Low 3.9-4.9 [facility] Comment on above: Order Comment: Speci men Type: BLOOD SPECIMENOrdering Facility: [facility] Address: [address] [place] [address] Performed By: #### 1 9123-9, 44765-3 ####[facility] LABIA [id number] [place] [address] [place] Anion gap [Moles/Vol] 12 mmol/L Normal 8-15 [facility] Comment on above: Order Comment: Speci men Type: BLOOD SPECIMENOrdering Facility: [facility] Address: [address] [place] [id number] Performed By: #### 1 9123-9, 98364-1 ####[facility] LABCLIA [id number] [address] [address] [place] Calcium [Mass/Vol] 9.0 mg/dL Normal 8.5-10.2 [facility] Comment on above: Order Comment: Speci men Type: BLOOD SPECIMENOrdering Facility: [facility] Address: [address] [place] [address] Performed By: #### 1 9123-9, 55344-1 ####[facility] LABCLIA [id number] [place] [address] [place] Chloride [Moles/Vol] 104 mmol/L Normal 98-107 [facility] Comment on above: Order Comment: Speci men Type: BLOOD SPECIMENOrdering Facility: [facility] Address: [address] [place] [address] Performed By: #### 1 9123-9, 84262-5 ####[facility] LABCLIA [id number] [place] [address] [place] CO2 [Moles/Vol] 24 mmol/L Normal 22-30 [facility] Comment on above: Order Comment: Speci men Type: BLOOD SPECIMENOrdering Facility: [facility] Address: [address] [place] [address] Performed By: #### 1 9123-9, 68450-4 ####[facility] LABCLIA [id number] [place] [address] [place] Creatinine [Mass/Vol] 2.14 mg/dL High 0.73-1.22 [facility] Comment on above: Order Comment: Speci men Type: BLOOD SPECIMENOrdering Facility: [facility] Address: [address] [place], [place] [address] Performed By: #### 1 9123-9, 85739-8 ####[facility] LABCLIA [id number] [place] [address] [place] Creatinine and Glomerular filtration rate.predicted panel (S/P/Bld) 30 mL/min/1.73m??? Low >=60 [facility] Comment on above: Order Comment: Specgregory olvera Type: BLOOD SPECIMENOrdering Facility: [facility] Address: [address] [place] [address] Result Comment: Etta mated Glomerular Filtration Rate [...] accurately reflect actual GFR. Performed By: #### 1 9123-9, 19398-7 ####[facility] LABIA [id number] [place] [address] [place] Glucose [Mass/Vol] 84 mg/dL Normal 74-99 [facility] Comment on above: Order Comment: Dylan olvera Type: BLOOD SPECIMENOrdering Facility: [facility] Address: [address] [place] [address] Result Comment: The [place] [employer] (ADA) provides guidance for cutoff values for fasting glucose and random glucose. The ADA defines fasting as no caloric intake for at least 8 hours. Fasting plasma glucose results between 100 to 125 mg/dL indicate increased risk for diabetes (prediabetes).Fasting plasma glucose results greater than or equal to 126 mg/dL meet the criteria for diagnosis of diabetes. In the absence of unequivocal hyperglycemia, results should be confirmed by repeat testing. In a patient with classic symptoms of hyperglycemia or hyperglycemic crisis, random plasma glucose results greater than or equal to 200 mg/dL meet the criteria for diagnosis of diabetes.Reference: Standards of Medical Care in Diabetes 2016, [place] [employer]. Diabetes Care. 2016.39(Suppl 1). Performed By: #### 1 9123-9, 02923-7 ####[facility] LABCLIA [id number] [place] [address] [place] Phosphate [Mass/Vol] 2.7 mg/dL Normal 2.7-4.8 [facility] Comment on above: Order Comment: Speci men Type: BLOOD SPECIMENOrdering Facility: [facility] Address: [address] [place] [address] Performed By: #### 1 9123-9, 77429-2 ####[facility] LABCLIA [id number] [place] [address] [place] Potassium [Moles/Vol] 3.9 mmol/L Normal 3.7-5.1 [facility] Comment on above: Order Comment: Speci men Type: BLOOD SPECIMENOrdering Facility: [facility] Address: [address] [place] [address] Performed By: #### 1 9123-9, 07300-4 ####[facility] LABIA [id number] [place] [address] [place] Sodium [Moles/Vol] 140 mmol/L Normal 136-144 [facility] Comment on above: Order Comment: Speci men Type: BLOOD SPECIMENOrdering Facility: [facility] Address: [address] [place] [address] Performed By: #### 1 9123-9, 81354-2 ####[facility] LABIA [id number] [place] [address] [place] Urea nitrogen [Mass/Vol] 24 mg/dL Normal 9-24 [facility] Comment on above: Order Comment: Speci men Type: BLOOD SPECIMENOrdering Facility: [facility] Address: [address] [place] [address] Performed By: #### 1 9123-9, 91768-9 ####[facility] LABCLIA [id number] [place] [id number] [place] THERAPY NTon 05-14-2024 THERAPY NT Normal [facility] TYPE + SCREENon 05-14-2024 ABO O Normal [facility] Comment on above: Order Comment: Speci men Type: BLOOD SPECIMENOrdering Facility: [facility] Address: [address] [place] [address] Performed By: #### T SCR ####[facility]LO[facility] BANKCLIA [id number] [place] [id number] [place] HISTORICAL AB SCR STATUS Negative Normal [facility] Comment on above: Order Comment: Speci men Type: BLOOD SPECIMENOrdering Facility: [facility] Address: [address] [place] [address] Performed By: #### T SCR ####[facility]LO[facility] BANKCLIA [id number] [place] [address] [place] Rh Nom (Bld) Positive Normal [facility] Comment on above: Order Comment: Speci men Type: BLOOD SPECIMENOrdering Facility: [facility] Address: [address] [place] [address] Performed By: #### T SCR ####[facility]LO[facility] BANKCLIA [id number] [place] [address] [place] TYPE AND SCREEN EXPIRATION 05/17/2024 23:59 Normal [facility] Comment on above: Order Comment: Speci men Type: BLOOD SPECIMENOrdering Facility: [facility] Address: [address] [place] [address] Performed By: #### T SCR ####[facility]LO[facility] BANKCLIA [id number] [place] [address] [place] Upper GI endoscopyon 024 Upper GI endoscopy Normal [facility] aPTT PPPon 05-14-2024 aPTT Coag (PPP) [Time] 25.4 s Normal 23.0-32.4 [facility] Comment on above: Order Comment: Speci men Type: BLOOD SPECIMENOrdering Facility: [facility] Address: [address] [place] [address] Performed By: #### 1 4979-9 ####[facility] LABIA [id number] [place] [address] [place] CBC panel Auto (Bld)on 05-13 Erythrocyte distribution width (RBC) [Ratio] 20.2 % High 11.5-15.0 [facility] Comment on above: Order Comment: Speci men Type: BLOOD SPECIMENOrdering Facility: [facility] Address: [address] [place] [address] Performed By: #### 5 8410-2 ####[facility] [id number] [place] [address] [place] Hematocrit (Bld) [Volume fraction] 28.2 % Low 39.0-51.0 [facility] Comment on above: Order Comment: Speci men Type: BLOOD SPECIMENOrdering Facility: [facility] Address: [address] [place] [address] Performed By: #### 5 8410-2 ####[facility] [id number] [place] [address] [place] Hemoglobin (Bld) [Mass/Vol] 8.3 g/dL Low 13.0-17.0 [facility] Comment on above: Order Comment: Speci men Type: BLOOD SPECIMENOrdering Facility: [facility] Address: [address] [place] [address] Performed By: #### 5 8410-2 ####[facility] LABIA [id number] [place] [address] [place] MCH (RBC) [Entitic mass] 29.6 pg Normal 26.0-34.0 [facility] Comment on above: Order Comment: Speci men Type: BLOOD SPECIMENOrdering Facility: [facility] Address: [address] [place] [address] Performed By: #### 5 8410-2 ####[facility] [id number] [place] [id number] [place] MCHC (RBC) [Mass/Vol] 29.4 g/dL Low 30.5-36.0 [facility] Comment on above: Order Comment: Speci men Type: BLOOD SPECIMENOrdering Facility: [facility] Address: [address] [place] [address] Performed By: #### 5 8410-2 ####[facility] LABCLIA [id number] [place] [address] [place] MCV (RBC) [Entitic vol] 100.7 fL High 80.0-100.0 [facility] Comment on above: Order Comment: Speci men Type: BLOOD SPECIMENOrdering Facility: [facility] Address: [address] [place] [address] Performed By: #### 5 8410-2 ####[facility] LABCLIA [id number] [place] [address] [place] Nucleated RBC (Bld) [#/Vol] 10*3/uL Normal <0.01 [facility] Comment on above: Order Comment: Speci men Type: BLOOD SPECIMENOrdering Facility: [facility] Address: [address] [place] [address] Performed By: #### 5 8410-2 ####[facility] LABIA [id number] [place] [address] [place] Platelet mean volume (Bld) [Entitic vol] 10.4 fL Normal 9.0-12.7 [facility] Comment on above: Order Comment: Speci men Type: BLOOD SPECIMENOrdering Facility: [facility] Address: [address] [place] [address] Performed By: #### 5 8410-2 ####[facility] LABCLIA [id number] [place] [address] [place] Platelets (Bld) [#/Vol] 169 10*3/uL Normal 150-400 [facility] Comment on above: Order Comment: Speci men Type: BLOOD SPECIMENOrdering Facility: [facility] Address: [address] [place] [address] Performed By: #### 5 8410-2 ####[facility] LABIA [id number] [place] [address] [place] RBC (Bld) [#/Vol] 2.80 10*6/uL Low 4.20-6.00 [facility] Comment on above: Order Comment: Speci men Type: BLOOD SPECIMENOrdering Facility: [facility] Address: [address] [place] [address] Performed By: #### 5 8410-2 ####[facility] LABIA [id number] [place] [address] [place] WBC (Bld) [#/Vol] 4.70 10*3/uL Normal 3.70-11.00 [facility] Comment on above: Order Comment: Speci men Type: BLOOD SPECIMENOrdering Facility: [facility] Address: [address] [place] [address] Performed By: #### 5 8410-2 ####[facility] LABIA [id number] [place] [address] [place] Magnesium SerPl-mCncon 05-13 Magnesium [Mass/Vol] 2.2 mg/dL Normal 1.7-2.3 [facility] Comment on above: Order Comment: Speci men Type: BLOOD SPECIMENOrdering Facility: [facility] Address: [address] [place] [address] Performed By: #### 1 9123-9, 40646-3 ####[facility] LABIA [id number] [place] [address] [place] PTT, ANTICOAGULANT THERAPYon 05-13-2024 aPTT Coag (PPP) [Time] 49.3 s High 23.0-32.4 [facility] Comment on above: Order Comment: Speci men Type: BLOOD SPECIMENOrdering Facility: [facility] Address: [address] [place] [address] Performed By: #### P TTAC ####[facility] LABCLIA [id number] [place] [address] [place] aPTT Coag (PPP) [Time] 62.2 s High 23.0-32.4 [facility] Comment on above: Order Comment: Speci men Type: BLOOD SPECIMENOrdering Facility: [facility] Address: [address] [place] [address] Performed By: #### P TTAC ####[facility] LABIA [id number] [place] [address] [place] aPTT Coag (PPP) [Time] 76.5 s High 23.0-32.4 [facility] Comment on above: Order Comment: Speci men Type: BLOOD SPECIMENOrdering Facility: [facility] Address: [address] [place] [address] Performed By: #### P TTAC ####[facility]IA [id number] [place] [address] [place] Renal function 2000 panelon 05-13-2024 Albumin [Mass/Vol] 3.4 g/dL Low 3.9-4.9 [facility] Comment on above: Order Comment: Speci men Type: BLOOD SPECIMENOrdering Facility: [facility] Address: [address] [place] [address] Performed By: #### 1 9123-9, 44729-3 ####[facility] LABIA [id number] [place] [address] [place] Anion gap [Moles/Vol] 12 mmol/L Normal 8-15 [facility] Comment on above: Order Comment: Speci men Type: BLOOD SPECIMENOrdering Facility: [facility] Address: [address] [place] [address] Performed By: #### 1 9123-9, 07703-6 ####[facility] LABCLIA [id number] [place] [address] [place] Calcium [Mass/Vol] 8.9 mg/dL Normal 8.5-10.2 [facility] Comment on above: Order Comment: Speci men Type: BLOOD SPECIMENOrdering Facility: [facility] Address: [address] [place] [address] Performed By: #### 1 9123-9, 97004-2 ####[facility] LABCLIA [id number] [place] [address] [place] Chloride [Moles/Vol] 104 mmol/L Normal 98-107 [facility] Comment on above: Order Comment: Speci men Type: BLOOD SPECIMENOrdering Facility: [facility] Address: [address] [place] [address] Performed By: #### 1 9123-9, ####[facility] LABCLIA [id number] [place] [address] [place] CO2 [Moles/Vol] 24 mmol/L Normal 22-30 [facility] Comment on above: Order Comment: Speci men Type: BLOOD SPECIMENOrdering Facility: [facility] Address: [address] [place] [address] Performed By: #### 1 9123-9, 43442-7 ####[facility] LABCLIA [id number] [place] [place] [address] [place] Creatinine [Mass/Vol] 2.10 mg/dL High 0.73-1.22 [facility] Comment on above: Order Comment: Speci men Type: BLOOD SPECIMENOrdering Facility: [facility] Address: [address] [place] [address] Performed By: #### 1 9123-9, 32262-6 ####[facility] LABCLIA [id number] [place] [address] [place] Creatinine and Glomerular filtration rate.predicted panel (S/P/Bld) 31 mL/min/1.73m??? Low >=60 [facility] Comment on above: Order Comment: Dylan olvera Type: BLOOD SPECIMENOrdering Facility: [facility] Address: [address] [place] [address] Result Comment: Etta mated Glomerular Filtration Rate [...] accurately reflect actual GFR. Performed By: #### 1 9123-9, 84826-7 ####[facility] LABCLIA [id number] [place] [address] [place] Glucose [Mass/Vol] 105 mg/dL High 74-99 [facility] Comment on above: Order Comment: Dylan olvera Type: BLOOD SPECIMENOrdering Facility: [facility] Address: [address] [place] [address] Result Comment: The [place] [employer] (ADA) provides guidance for cutoff values for fasting glucose and random glucose. The ADA defines fasting as no caloric intake for at least 8 hours. Fasting plasma glucose results between 100 to 125 mg/dL indicate increased risk for diabetes (prediabetes).Fasting plasma glucose results greater than or equal to 126 mg/dL meet the criteria for diagnosis of diabetes. In the absence of unequivocal hyperglycemia, results should be confirmed by repeat testing. In a patient with classic symptoms of hyperglycemia or hyperglycemic crisis, random plasma glucose results greater than or equal to 200 mg/dL meet the criteria for diagnosis of diabetes.Reference: Standards of Medical Care in Diabetes 2016, [place] [employer]. Diabetes Care. 2016.39(Suppl 1). Performed By: #### 1 9123-9, 51274-2 ####[facility] LABCLIA [id number] [place] [address] [place] Phosphate [Mass/Vol] 2.8 mg/dL Normal 2.7-4.8 [facility] Comment on above: Order Comment: Speci men Type: BLOOD SPECIMENOrdering Facility: [facility] Address: [address] [place] [address] Performed By: #### 1 9123-9, 74216-3 ####[facility] LABCLIA [id number] [place] [address] [place] Potassium [Moles/Vol] 3.8 mmol/L Normal 3.7-5.1 [facility] Comment on above: Order Comment: Speci men Type: BLOOD SPECIMENOrdering Facility: [facility] Address: [address] [place] [address] Performed By: #### 1 9123-9, 36182-1 ####[facility] LABCLIA [id number] [place] [address] [place] Sodium [Moles/Vol] 140 mmol/L Normal 136-144 [facility] Comment on above: Order Comment: Speci men Type: BLOOD SPECIMENOrdering Facility: [facility] Address: [address] [place] [address] Performed By: #### 1 9123-9, 00455-3 ####[facility] LABCLIA [id number] [place] [address] [place] Urea nitrogen [Mass/Vol] 26 mg/dL High 9-24 [facility] Comment on above: Order Comment: Speci men Type: BLOOD SPECIMENOrdering Facility: [facility] Address: [address] [place] [address] Performed By: #### 1 9123-9, 27352-9 ####[facility] LABCLIA [id number] [place] [address] [place] THERAPY NTon 05-13-2024 THERAPY NT Normal [facility] CBC panel Auto (Bld)on 05-12 Erythrocyte distribution width (RBC) [Ratio] 20.7 % High 11.5-15.0 [facility] Comment on above: Order Comment: Speci men Type: BLOOD SPECIMENOrdering Facility: [facility] Address: [address] [place] [address] Performed By: #### 5 8410-2 ####[facility]ITAL[facility] [id number] [place] [address] [place] Hematocrit (Bld) [Volume fraction] 28.1 % Low 39.0-51.0 [facility] Comment on above: Order Comment: Speci men Type: BLOOD SPECIMENOrdering Facility: [facility] Address: [address] [place] [address] Performed By: #### 5 8410-2 ####[facility] [id number] [place] [address] [place] Hemoglobin (Bld) [Mass/Vol] 8.0 g/dL Low 13.0-17.0 [facility] Comment on above: Order Comment: Speci men Type: BLOOD SPECIMENOrdering Facility: [facility] Address: [address] [place] [address] Performed By: #### 5 8410-2 ####[facility] LABIA [id number] [place] [address] [place] MCH (RBC) [Entitic mass] 29.3 pg Normal 26.0-34.0 [facility] Comment on above: Order Comment: Speci men Type: BLOOD SPECIMENOrdering Facility: [facility] Address: [address] [place] [address] Performed By: #### 5 8410-2 ####[facility] [id number] [place] [address] [place] MCHC (RBC) [Mass/Vol] 28.5 g/dL Low 30.5-36.0 [facility] Comment on above: Order Comment: Speci men Type: BLOOD SPECIMENOrdering Facility: [facility] Address: [address] [place] [address] Performed By: #### 5 8410-2 ####[facility] LABCLIA [id number] [place] [address] [place] MCV (RBC) [Entitic vol] 102.9 fL High 80.0-100.0 [facility] Comment on above: Order Comment: Speci men Type: BLOOD SPECIMENOrdering Facility: [facility] Address: [address] [place] [address] Performed By: #### 5 8410-2 ####[facility] LABIA [id number] [place] [address] [place] Nucleated RBC (Bld) [#/Vol] 10*3/uL Normal <0.01 [facility] Comment on above: Order Comment: Speci men Type: BLOOD SPECIMENOrdering Facility: [facility] Address: [address] [place] [address] Performed By: #### 5 8410-2 ####[facility] LABIA [id number] [place] [address] [place] Platelet mean volume (Bld) [Entitic vol] 10.6 fL Normal 9.0-12.7 [facility] Comment on above: Order Comment: Speci men Type: BLOOD SPECIMENOrdering Facility: [facility] Address: [address] [place] [address] Performed By: #### 5 8410-2 ####[facility] LABIA [id number] [place] [address] [place] Platelets (Bld) [#/Vol] 182 10*3/uL Normal 150-400 [facility] Comment on above: Order Comment: Speci men Type: BLOOD SPECIMENOrdering Facility: [facility] Address: [address] [place] [address] Performed By: #### 5 8410-2 ####[facility] LABIA [id number] [place] [address] [place] RBC (Bld) [#/Vol] 2.73 10*6/uL Low 4.20-6.00 [facility] Comment on above: Order Comment: Dylan olvera Type: BLOOD SPECIMENOrdering Facility: [facility] Address: [address] [place] [address] Performed By: #### 5 8410-2 ####[facility] LABCLIA [id number] [place] [address] [place] WBC (Bld) [#/Vol] 4.96 10*3/uL Normal 3.70-11.00 [facility] Comment on above: Order Comment: Rozi may Type: BLOOD SPECIMENOrdering Facility: [facility] Address: [address] [place] [address] Performed By: #### 5 8410-2 ####[facility] LABCLIA [id number] [place] [address] [place] PT panel Coag (PPP)on 2023 INR Coag (PPP) [Relative time] 1.3 {INR} Normal 0.9-1.3 [facility] Comment on above: Order Comment: Dylan olvera Type: BLOOD SPECIMENOrdering Facility: [facility] Address: [address] [place] [address] Result Comment: Loulou min K Antagonist (VKA) Therapeutic Range: INR 2 to 3 (Target INR of 2.5)Note: For patients treated with VKA drugs, such as warfarin, the [place] [employer] 2012 Guideline recommends a therapeutic INR range of 2 to 3 (target INR of 2.5). This recommendation includes high-risk patients with antiphospholipid syndrome with previous arterial or venous thromboembolism, current-generation mechanical or bioprosthetic aortic heart valve replacement.Note: Patients with mechanical aortic valve replacement and additional risk factors for thromboembolic events (atrial fibrillation, previous thromboembolism, LV dysfunction, hypercoagulable conditions) or an older generation mechanical AVR (i.e., ball in-Cage) or any mechanical MVR should have a INR therapeutic range of 2.5 to 3.5 (target INR of 3).Olamide CHAUHAN, et al. Chest 2012, 141:7S-47SNishimura RA, et al. [facility] 2017, 70: 252-289 Performed By: #### P TTAC, 11299-4 ####[facility] LABIA [id number] [place] [address] [place] PT Coag (PPP) [Time] 13.5 s High 9.7-13.0 [facility] Comment on above: Order Comment: Speci men Type: BLOOD SPECIMENOrdering Facility: [facility] Address: [address] [place] [address] Performed By: #### P TTAC, 32167-1 ####[facility] LABIA [id number] [place] [address] [place] PTT, ANTICOAGULANT THERAPYon 05-12-2024 aPTT Coag (PPP) [Time] 43.6 s High 23.0-32.4 [facility] Comment on above: Order Comment: Speci men Type: BLOOD SPECIMENOrdering Facility: [facility] Address: [address] [place] [address] Performed By: #### P TTAC ####[facility] [id number] [place] [address] [place] aPTT Coag (PPP) [Time] 106.6 s High 23.0-32.4 [facility] Comment on above: Order Comment: Speci men Type: BLOOD SPECIMENOrdering Facility: [facility] Address: [address] [place] [address] Performed By: #### P TTAC ####[facility] [id number] [place] [address] [place] aPTT Coag (PPP) [Time] 42.0 s High 23.0-32.4 [facility] Comment on above: Order Comment: Speci men Type: BLOOD SPECIMENOrdering Facility: [facility] Address: [address] [place] [address] Performed By: #### P TTAC, 78602-2 ####[facility] LABCLIA [id number] [place] [id number] [place] Renal function 2000 panelon 05-12-2024 Albumin [Mass/Vol] 3.2 g/dL Low 3.9-4.9 [facility] Comment on above: Order Comment: Speci men Type: BLOOD SPECIMENOrdering Facility: [facility] Address: [address] [place] [address] Performed By: #### 2 4362-6 ####[facility] LABCLIA [id number] [place] [address] [place] Anion gap [Moles/Vol] 10 mmol/L Normal 8-15 [facility] Comment on above: Order Comment: Speci men Type: BLOOD SPECIMENOrdering Facility: [facility] Address: [address] [place] [address] Performed By: #### 2 4362-6 ####[facility] LABCLIA [id number] [place] [address] [place] Calcium [Mass/Vol] 8.6 mg/dL Normal 8.5-10.2 [facility] Comment on above: Order Comment: Speci men Type: BLOOD SPECIMENOrdering Facility: [facility] Address: [address] [place] [address] Performed By: #### 2 4362-6 ####[facility] LABCLIA [id number] [place] [address] [place] Chloride [Moles/Vol] 106 mmol/L Normal 98-107 [facility] Comment on above: Order Comment: Speci men Type: BLOOD SPECIMENOrdering Facility: [facility] Address: [address] [place] [address] Performed By: #### 2 4362-6 ####[facility] LABCLIA [id number] [place] [address] [place] CO2 [Moles/Vol] 23 mmol/L Normal 22-30 [facility] Comment on above: Order Comment: Speci men Type: BLOOD SPECIMENOrdering Facility: [facility] Address: [address] [place] [address] Performed By: #### 2 4362-6 ####[facility] LABCLIA [id number] [place] [address] [place] Creatinine [Mass/Vol] 2.22 mg/dL High 0.73-1.22 [facility] Comment on above: Order Comment: Speci men Type: BLOOD SPECIMENOrdering Facility: [facility] Address: [address] [place] [address] Performed By: #### 2 4362-6 ####[facility] LABCLIA [id number] [place] [address] [place] Creatinine and Glomerular filtration rate.predicted panel (S/P/Bld) 29 mL/min/1.73m??? Low >=60 [facility] Comment on above: Order Comment: Speci men Type: BLOOD SPECIMENOrdering Facility: [facility] Address: [address] [place] [address] Result Comment: Etta mated Glomerular Filtration Rate [...] reflect actual GFR. Performed By: #### 2 4362-6 ####[facility] LABIA [id number] [place] [address] [place] Glucose [Mass/Vol] 118 mg/dL High 74-99 [facility] Comment on above: Order Comment: Speci men Type: BLOOD SPECIMENOrdering Facility: [facility] Address: [address] [place] [address] Result Comment: The [place] [employer] (ADA) provides guidance for cutoff values for fasting glucose and random glucose. The ADA defines fasting as no caloric intake for at least 8 hours. Fasting plasma glucose results between 100 to 125 mg/dL indicate increased risk for diabetes (prediabetes).Fasting plasma glucose results greater than or equal to 126 mg/dL meet the criteria for diagnosis of diabetes. In the absence of unequivocal hyperglycemia, results should be confirmed by repeat testing. In a patient with classic symptoms of hyperglycemia or hyperglycemic crisis, random plasma glucose results greater than or equal to 200 mg/dL meet the criteria for diagnosis of diabetes.Reference: Standards of Medical Care in Diabetes 2016, [place] [employer]. Diabetes Care. 2016.39(Suppl 1). Performed By: #### 2 4362-6 ####[facility] LABCLIA [id number] [place] [address] [place] Phosphate [Mass/Vol] 2.6 mg/dL Low 2.7-4.8 [facility] Comment on above: Order Comment: Speci men Type: BLOOD SPECIMENOrdering Facility: [facility] Address: [address] [place] [address] Performed By: #### 2 4362-6 ####[facility] LABIA [id number] [place] [address] [place] Potassium [Moles/Vol] 3.9 mmol/L Normal 3.7-5.1 [facility] Comment on above: Order Comment: Speci men Type: BLOOD SPECIMENOrdering Facility: [facility] Address: [address] [place] [address] Performed By: #### 2 4362-6 ####[facility] LABCLIA [id number] [place] [address] [place] Sodium [Moles/Vol] 139 mmol/L Normal 136-144 [facility] Comment on above: Order Comment: Speci men Type: BLOOD SPECIMENOrdering Facility: [facility] Address: [address] [place] [address] Performed By: #### 2 4362-6 ####[facility] LABCLIA [id number] [place] [address] [place] Urea nitrogen [Mass/Vol] 28 mg/dL High 9-24 [facility] Comment on above: Order Comment: Speci men Type: BLOOD SPECIMENOrdering Facility: [facility] Address: [address] [place] [address] Performed By: #### 2 4362-6 ####[facility] LABCLIA [id number] [place] [address] [place] THERAPY NTon 05-12-2024 THERAPY NT Normal [facility] CASE MGT INIT ASSESon 2023 CASE MGT INIT ASSES Normal [facility] CBC panel Auto (Bld)on 05-11 Erythrocyte distribution width (RBC) [Ratio] 20.9 % High 11.5-15.0 [facility] Comment on above: Order Comment: Speci men Type: BLOOD SPECIMENOrdering Facility: [facility] Address: [address] [place] [address] Performed By: #### 5 8410-2 ####[facility] LABCLIA [id number] [place] [address] [place] Hematocrit (Bld) [Volume fraction] 27.6 % Low 39.0-51.0 [facility] Comment on above: Order Comment: Speci men Type: BLOOD SPECIMENOrdering Facility: [facility] Address: [address] [place] [address] Performed By: #### 5 8410-2 ####[facility] LABCLIA [id number] [place] [address] [place] Hemoglobin (Bld) [Mass/Vol] 8.1 g/dL Low 13.0-17.0 [facility] Comment on above: Order Comment: Speci men Type: BLOOD SPECIMENOrdering Facility: [facility] Address: [address] [place] [address] Performed By: #### 5 8410-2 ####[facility] LABCLIA [id number] [place] [address] [place] MCH (RBC) [Entitic mass] 29.8 pg Normal 26.0-34.0 [facility] Comment on above: Order Comment: Speci men Type: BLOOD SPECIMENOrdering Facility: [facility] Address: [address] [place] [address] Performed By: #### 5 8410-2 ####[facility] LABIA [id number] [place] [address] [place] MCHC (RBC) [Mass/Vol] 29.3 g/dL Low 30.5-36.0 [facility] Comment on above: Order Comment: Speci men Type: BLOOD SPECIMENOrdering Facility: [facility] Address: [address] [place] [address] Performed By: #### 5 8410-2 ####[facility] LABIA [id number] [place] [address] [place] MCV (RBC) [Entitic vol] 101.5 fL High 80.0-100.0 [facility] Comment on above: Order Comment: Speci men Type: BLOOD SPECIMENOrdering Facility: [facility] Address: [address] [place] [address] Performed By: #### 5 8410-2 ####[facility] LABIA [id number] [place] [address] [place] Nucleated RBC (Bld) [#/Vol] 10*3/uL Normal <0.01 [facility] Comment on above: Order Comment: Speci men Type: BLOOD SPECIMENOrdering Facility: [facility] Address: [address] [place] [address] Performed By: #### 5 8410-2 ####[facility] LABIA [id number] [place] [address] [place] Platelet mean volume (Bld) [Entitic vol] 10.4 fL Normal 9.0-12.7 [facility] Comment on above: Order Comment: Speci men Type: BLOOD SPECIMENOrdering Facility: [facility] Address: [address] [place] [address] Performed By: #### 5 8410-2 ####[facility] LABCLIA [id number] [place] [address] [place] Platelets (Bld) [#/Vol] 182 10*3/uL Normal 150-400 [facility] Comment on above: Order Comment: Speci men Type: BLOOD SPECIMENOrdering Facility: [facility] Address: [address] [place] [address] Performed By: #### 5 8410-2 ####[facility] LABIA [id number] [place] [address] [place] RBC (Bld) [#/Vol] 2.72 10*6/uL Low 4.20-6.00 [facility] Comment on above: Order Comment: Speci men Type: BLOOD SPECIMENOrdering Facility: [facility] Address: [address] [place] [address] Performed By: #### 5 8410-2 ####[facility] LABIA [id number] [place] [address] [place] WBC (Bld) [#/Vol] 5.06 10*3/uL Normal 3.70-11.00 [facility] Comment on above: Order Comment: Speci men Type: BLOOD SPECIMENOrdering Facility: [facility] Address: [address] [place] [address] Performed By: #### 5 8410-2 ####[facility] LABIA [id number] [place] [id number] [place] NURSING PROGon 05-11-2024 NURSING PROG Normal [facility] PTT, ANTICOAGULANT THERAPYon 05-11-2024 aPTT Coag (PPP) [Time] 55.4 s High 23.0-32.4 [facility] Comment on above: Order Comment: Speci men Type: BLOOD SPECIMENOrdering Facility: [facility] Address: [address] [place] [address] Performed By: #### P TTAC ####[facility] LABCLIA [id number] [address] [address] [place] aPTT Coag (PPP) [Time] 61.4 s High 23.0-32.4 [facility] Comment on above: Order Comment: Speci men Type: BLOOD SPECIMENOrdering Facility: [facility] Address: [address] [place] [address] Performed By: #### P TTAC ####[facility] LABIA [id number] [address] [place] aPTT Coag (PPP) [Time] 65.2 s High 23.0-32.4 [facility] Comment on above: Order Comment: Speci men Type: BLOOD SPECIMENOrdering Facility: [facility] Address: [address] [place] [address] Performed By: #### P TTAC ####[facility] LABIA [id number] [place] [address] [place] Renal function 2000 panelon 05-11-2024 Albumin [Mass/Vol] 3.3 g/dL Low 3.9-4.9 [facility] Comment on above: Order Comment: Speci men Type: BLOOD SPECIMENOrdering Facility: [facility] Address: [address] [place] [address] Performed By: #### 2 4362-6 ####[facility] [id number] [place] [address] [place] Anion gap [Moles/Vol] 10 mmol/L Normal 8-15 [facility] Comment on above: Order Comment: Speci men Type: BLOOD SPECIMENOrdering Facility: [facility] Address: [address] [place] [address] Performed By: #### 2 4362-6 ####[facility] LABCLIA [id number] [place] [address] [place] Calcium [Mass/Vol] 8.3 mg/dL Low 8.5-10.2 [facility] Comment on above: Order Comment: Speci men Type: BLOOD SPECIMENOrdering Facility: [facility] Address: [address] [place] [address] Performed By: #### 2 4362-6 ####[facility] LABCLIA [id number] [place] [address] [place] Chloride [Moles/Vol] 106 mmol/L Normal 98-107 [facility] Comment on above: Order Comment: Speci men Type: BLOOD SPECIMENOrdering Facility: [facility] Address: [address] [place] [address] Performed By: #### 2 4362-6 ####[facility] LABCLIA [id number] [place] [address] [place] CO2 [Moles/Vol] 24 mmol/L Normal 22-30 [facility] Comment on above: Order Comment: Speci men Type: BLOOD SPECIMENOrdering Facility: [facility] Address: [address] [place] [address] Performed By: #### 2 4362-6 ####[facility] LABCLIA [id number] [place] [address] [place] Creatinine [Mass/Vol] 2.05 mg/dL High 0.73-1.22 [facility] Comment on above: Order Comment: Speci men Type: BLOOD SPECIMENOrdering Facility: [facility] Address: [address] [place] [address] Performed By: #### 2 4362-6 ####[facility] LABCLIA [id number] [place] [address] [place] Creatinine and Glomerular filtration rate.predicted panel (S/P/Bld) 32 mL/min/1.73m??? Low >=60 [facility] Comment on above: Order Comment: Dylan olvera Type: BLOOD SPECIMENOrdering Facility: [facility] Address: [address] [place] [address] Result Comment: Etta mated Glomerular Filtration Rate [...] reflect actual GFR. Performed By: #### 2 4362-6 ####[facility] [id number] [place] [address] [place] Glucose [Mass/Vol] 103 mg/dL High 74-99 [facility] Comment on above: Order Comment: Dylan olvera Type: BLOOD SPECIMENOrdering Facility: [facility] Address: [address] [place] [address] Result Comment: The [place] [employer] (ADA) provides guidance for cutoff values for fasting glucose and random glucose. The ADA defines fasting as no caloric intake for at least 8 hours. Fasting plasma glucose results between 100 to 125 mg/dL indicate increased risk for diabetes (prediabetes).Fasting plasma glucose results greater than or equal to 126 mg/dL meet the criteria for diagnosis of diabetes. In the absence of unequivocal hyperglycemia, results should be confirmed by repeat testing. In a patient with classic symptoms of hyperglycemia or hyperglycemic crisis, random plasma glucose results greater than or equal to 200 mg/dL meet the criteria for diagnosis of diabetes.Reference: Standards of Medical Care in Diabetes 2016, [place] [employer]. Diabetes Care. 2016.39(Suppl 1). Performed By: #### 2 4362-6 ####[facility] [id number] [place] [address] [place] Phosphate [Mass/Vol] 2.3 mg/dL Low 2.7-4.8 [facility] Comment on above: Order Comment: Dylan olvera Type: BLOOD SPECIMENOrdering Facility: [facility] Address: [address] [place] [address] Performed By: #### 2 4362-6 ####[facility] [id number] [place] [address] [place] Potassium [Moles/Vol] 3.8 mmol/L Normal 3.7-5.1 [facility] Comment on above: Order Comment: Speci men Type: BLOOD SPECIMENOrdering Facility: [facility] Address: [address] [place] [address] Performed By: #### 2 4362-6 ####[facility] [id number] [place] [address] [place] Sodium [Moles/Vol] 140 mmol/L Normal 136-144 [facility] Comment on above: Order Comment: Speci men Type: BLOOD SPECIMENOrdering Facility: [facility] Address: [address] [place] [address] Performed By: #### 2 4362-6 ####[facility] [id number] [place] [address] [place] Urea nitrogen [Mass/Vol] 30 mg/dL High 9-24 [facility] Comment on above: Order Comment: Speci men Type: BLOOD SPECIMENOrdering Facility: [facility] Address: [address] [place] [address] Performed By: #### 2 4362-6 ####[facility] [id number] [place] [id number] [place] THERAPY NTon 05-11-2024 THERAPY NT Normal [facility] THERAPY NT Normal [facility] CBC panel Auto (Bld)on 05-10 Erythrocyte distribution width (RBC) [Ratio] 21.3 % High 11.5-15.0 [facility] Comment on above: Order Comment: Speci men Type: BLOOD SPECIMENOrdering Facility: [facility] Address: [address] [place] [address] Performed By: #### 5 8410-2 ####[facility] [id number] [place] [address] [place] Hematocrit (Bld) [Volume fraction] 29.8 % Low 39.0-51.0 [facility] Comment on above: Order Comment: Speci men Type: BLOOD SPECIMENOrdering Facility: [facility] Address: [address] [place] [address] Performed By: #### 5 8410-2 ####[facility] [id number] [place] [address] [place] Hemoglobin (Bld) [Mass/Vol] 8.6 g/dL Low 13.0-17.0 [facility] Comment on above: Order Comment: Speci men Type: BLOOD SPECIMENOrdering Facility: [facility] Address: [address] [place] [address] Performed By: #### 5 8410-2 ####[facility] [id number] [place] [address] [place] MCH (RBC) [Entitic mass] 30.0 pg Normal 26.0-34.0 [facility] Comment on above: Order Comment: Speci men Type: BLOOD SPECIMENOrdering Facility: [facility] Address: [address] [place] [address] Performed By: #### 5 8410-2 ####[facility] [id number] [place] [address] [place] MCHC (RBC) [Mass/Vol] 28.9 g/dL Low 30.5-36.0 [facility] Comment on above: Order Comment: Speci men Type: BLOOD SPECIMENOrdering Facility: [facility] Address: [address] [place] [address] Performed By: #### 5 8410-2 ####[facility] [id number] [address] [address] [place] MCV (RBC) [Entitic vol] 103.8 fL High 80.0-100.0 [facility] Comment on above: Order Comment: Speci men Type: BLOOD SPECIMENOrdering Facility: [facility] Address: [address] [place] [address] Performed By: #### 5 8410-2 ####[facility] [id number] [place] [address] [place] Nucleated RBC (Bld) [#/Vol] 0.02 10*3/uL High <0.01 [facility] Comment on above: Order Comment: Speci men Type: BLOOD SPECIMENOrdering Facility: [facility] Address: [address] [place] [address] Performed By: #### 5 8410-2 ####[facility] [id number] [place] [address] [place] Platelet mean volume (Bld) [Entitic vol] 10.6 fL Normal 9.0-12.7 [facility] Comment on above: Order Comment: Speci men Type: BLOOD SPECIMENOrdering Facility: [facility] Address: [address] [place] [address] Performed By: #### 5 8410-2 ####[facility] [id number] [place] [address] [place] Platelets (Bld) [#/Vol] 188 10*3/uL Normal 150-400 [facility] Comment on above: Order Comment: Speci men Type: BLOOD SPECIMENOrdering Facility: [facility] Address: [address] [place] [address] Performed By: #### 5 8410-2 ####[facility] [id number] [place] [address] [place] RBC (Bld) [#/Vol] 2.87 10*6/uL Low 4.20-6.00 [facility] Comment on above: Order Comment: Speci men Type: BLOOD SPECIMENOrdering Facility: [facility] Address: [address] [place] [address] Performed By: #### 5 8410-2 ####[facility] LABIA [id number] [place] [address] [place] WBC (Bld) [#/Vol] 4.87 10*3/uL Normal 3.70-11.00 [facility] Comment on above: Order Comment: Speci men Type: BLOOD SPECIMENOrdering Facility: [facility] Address: [address] [place] [address] Performed By: #### 5 8410-2 ####[facility] [id number] [place] [address] [place] NURSING PROGon 05-10-2024 NURSING PROG Normal [facility] PTT, ANTICOAGULANT THERAPYon 05-10-2024 aPTT Coag (PPP) [Time] 64.0 s High 23.0-32.4 [facility] Comment on above: Order Comment: Speci men Type: BLOOD SPECIMENOrdering Facility: [facility] Address: [address] [place] [address] Performed By: #### P TTAC ####[facility] [id number] [place] [address] [place] aPTT Coag (PPP) [Time] 46.0 s High 23.0-32.4 [facility] Comment on above: Order Comment: Speci men Type: BLOOD SPECIMENOrdering Facility: [facility] Address: [address] [place] [address] Performed By: #### P TTAC ####[facility] [id number] [place] [address] [place] aPTT Coag (PPP) [Time] 87.4 s High 23.0-32.4 [facility] Comment on above: Order Comment: Speci men Type: BLOOD SPECIMENOrdering Facility: [facility] Address: [address] [place] [address] Performed By: #### P TTAC ####[facility] [id number] [place] [address] [place] TYPE + SCREENon 05-10-2024 ABO O Normal [facility] Comment on above: Order Comment: Speci men Type: BLOOD SPECIMENOrdering Facility: [facility] Address: [address] [place] [address] Performed By: #### T SCR ####[facility] BANKCL[facility] [id number] [place] [address] [place] HISTORICAL AB SCR STATUS Negative Normal [facility] Comment on above: Order Comment: Speci men Type: BLOOD SPECIMENOrdering Facility: [facility] Address: [address] [place] [address] Performed By: #### T SCR ####[facility]ANKCL[facility] [id number] [place] [address] [place] Rh Nom (Bld) Positive Normal [facility] Comment on above: Order Comment: Speci men Type: BLOOD SPECIMENOrdering Facility: [facility] Address: [address] [place] [address] Performed By: #### T SCR ####[facility] BLO[facility] BANKCLIA [id number] [place] [address] [place] TYPE AND SCREEN EXPIRATION 05/13/2024 23:59 Normal [facility] Comment on above: Order Comment: Speci men Type: BLOOD SPECIMENOrdering Facility: [facility] Address: [address] [place] [address] Performed By: #### T SCR ####[facility] BLO[facility] BANKCLIA [id number] [place] [id number] [place] Basic metabolic 2000 panelon 05-09-2024 Anion gap [Moles/Vol] 10 mmol/L Normal 8-15 [facility] Comment on above: Order Comment: Speci men Type: BLOOD SPECIMEN Ordering Facility: [facility] Address: [address] [place] [address] Performed By: #### 3 4528-0, PTTAC #### [facility] CLIA [id number] [place] [address] [place] Calcium [Mass/Vol] 8.6 mg/dL Normal 8.5-10.2 [facility] Comment on above: Order Comment: Speci men Type: BLOOD SPECIMEN Ordering Facility: [facility] Address: [address] [place] [address] Performed By: #### 3 4528-0, PTTAC #### [facility] CLIA [id number] [place] [address] [place] Chloride [Moles/Vol] 105 mmol/L Normal 98-107 [facility] Comment on above: Order Comment: Speci men Type: BLOOD SPECIMEN Ordering Facility: [facility] Address: [address] [place] [address] Performed By: #### 3 4528-0, PTTAC #### [facility] CLIA [id number] [place] [address] [place] CO2 [Moles/Vol] 24 mmol/L Normal 22-30 [facility] Comment on above: Order Comment: Speci men Type: BLOOD SPECIMEN Ordering Facility: [facility] Address: [address] [place] [address] Performed By: #### 3 4528-0, PTTAC #### [facility] CLIA [id number] [place] [address] [place] Creatinine [Mass/Vol] 1.96 mg/dL High 0.73-1.22 [facility] Comment on above: Order Comment: Speci men Type: BLOOD SPECIMEN Ordering Facility: [facility] Address: [address] [place] [address] Performed By: #### 3 4528-0, PTTAC #### [facility] CLIA [id number] [place] [address] [place] Creatinine and Glomerular filtration rate.predicted panel (S/P/Bld) 34 mL/min/1.73m??? Low >=60 [facility] Comment on above: Order Comment: Dylan olvera Type: BLOOD SPECIMEN Ordering Facility: [facility] Address: [address] [place] [address] Result Comment: Etta mated Glomerular Filtration Rate [...] reflect actual GFR. Performed By: #### 3 4528-0, PTTAC #### [facility] CLIA [id number] [facility] [place] [address] [place] Glucose [Mass/Vol] 114 mg/dL High 74-99 [facility] Comment on above: Order Comment: Dylan olvera Type: BLOOD SPECIMEN Ordering Facility: [facility] Address: [address] [place] [address] Result Comment: The [place] [employer] (ADA) provides guidance for cutoff [...] Standards of Medical Care in Diabetes 2016, [place] [employer]. Diabetes Care. 2016.39(Suppl 1). Performed By: #### 3 4528-0, PTTAC #### [facility] CLIA [id number] [facility] [address] [place] Potassium [Moles/Vol] 4.1 mmol/L Normal 3.7-5.1 [facility] Comment on above: Order Comment: Dylan olvera Type: BLOOD SPECIMEN Ordering Facility: [facility] Address: [address] [place] [address] Performed By: #### 3 4528-0, PTTAC #### [facility] [place] [id number] [place] [address] [place] Sodium [Moles/Vol] 139 mmol/L Normal 136-144 [facility] Comment on above: Order Comment: Speci men Type: BLOOD SPECIMEN Ordering Facility: [facility] Address: [address] [place] [address] Performed By: #### 3 4528-0, PTTAC #### [facility] IA [id number] [place] [address] [place] Urea nitrogen [Mass/Vol] 36 mg/dL High 06-09 [facility] Comment on above: Order Comment: Speci men Type: BLOOD SPECIMEN Ordering [facility]: [facility] Address: [address] [place] [address] Performed By: #### 3 4528-0, PTTAC #### [facility] [place] [id number] [address] [place] [address] [place] CBC panel Auto (Bld)on 05-09 Erythrocyte distribution width (RBC) [Ratio] 21.8 % High 11.5-15.0 [facility] Comment on above: Order Comment: Speci men Type: BLOOD SPECIMENOrdering Facility: [facility] Address: [address] [place] [address] Performed By: #### 5 8410-2 ####[facility] [id number] [place] [address] [place] Hematocrit (Bld) [Volume fraction] 28.0 % Low 39.0-51.0 [facility] Comment on above: Order Comment: Speci men Type: BLOOD SPECIMENOrdering Facility: [facility] Address: [address] [place] [address] Performed By: #### 5 8410-2 ####[facility] LABCLIA [id number] [place] [address] [place] Hemoglobin (Bld) [Mass/Vol] 8.3 g/dL Low 13.0-17.0 [facility] Comment on above: Order Comment: Speci men Type: BLOOD SPECIMENOrdering Facility: [facility] Address: [address] [place] [address] Performed By: #### 5 8410-2 ####[facility] [id number] [place] [address] [place] MCH (RBC) [Entitic mass] 30.3 pg Normal 26.0-34.0 [facility] Comment on above: Order Comment: Speci men Type: BLOOD SPECIMENOrdering Facility: [facility] Address: [address] [place] [address] Performed By: #### 5 8410-2 ####[facility] [id number] [place] [address] [place] MCHC (RBC) [Mass/Vol] 29.6 g/dL Low 30.5-36.0 [facility] Comment on above: Order Comment: Speci men Type: BLOOD SPECIMENOrdering Facility: [facility] Address: [address] [place] [address] Performed By: #### 5 8410-2 ####[facility] [id number] [place] [address] [place] MCV (RBC) [Entitic vol] 102.2 fL High 80.0-100.0 [facility] Comment on above: Order Comment: Speci men Type: BLOOD SPECIMENOrdering Facility: [facility] Address: [address] [place] [address] Performed By: #### 5 8410-2 ####[facility] [id number] [place] [address] [place] Nucleated RBC (Bld) [#/Vol] 10*3/uL Normal <0.01 [facility] Comment on above: Order Comment: Speci men Type: BLOOD SPECIMENOrdering Facility: [facility] Address: [address] [place] [address] Performed By: #### 5 8410-2 ####[facility] [id number] [place] [address] [place] Platelet mean volume (Bld) [Entitic vol] 10.1 fL Normal 9.0-12.7 [facility] Comment on above: Order Comment: Speci men Type: BLOOD SPECIMENOrdering Facility: [facility] Address: [address] [place] [address] Performed By: #### 5 8410-2 ####[facility] [id number] [place] [address] [place] Platelets (Bld) [#/Vol] 170 10*3/uL Normal 150-400 [facility] Comment on above: Order Comment: Speci men Type: BLOOD SPECIMENOrdering Facility: [facility] Address: [address] [place] [address] Performed By: #### 5 8410-2 ####[facility] [id number] [place] [address] [place] RBC (Bld) [#/Vol] 2.74 10*6/uL Low 4.20-6.00 [facility] Comment on above: Order Comment: Speci men Type: BLOOD SPECIMENOrdering Facility: [facility] Address: [address] [place] [address] Performed By: #### 5 8410-2 ####[facility] [id number] [place] [address] [place] WBC (Bld) [#/Vol] 5.04 10*3/uL Normal 3.70-11.00 [facility] Comment on above: Order Comment: Speci men Type: BLOOD SPECIMENOrdering Facility: [facility] Address: [address] [place] [address] Performed By: #### 5 8410-2 ####[facility] LABCL[facility] [id number] LACHELLEKurtis [facility] [id number] [address] [place] Erythrocyte distribution width (RBC) [Ratio] 21.8 % High 11.5-15.0 [facility] Comment on above: Order Comment: Speci men Type: BLOOD SPECIMEN Ordering Facility: [facility] Address: [address] [place] [address] Performed By: #### 5 8410-2 #### [facility] CLIA [id number] [place] [address] [place] Hematocrit (Bld) [Volume fraction] 27.6 % Low 39.0-51.0 [facility] Comment on above: Order Comment: Speci men Type: BLOOD SPECIMEN Ordering Facility: [facility] Address: [address] [place] [address] Performed By: #### 5 8410-2 #### [facility] IA [id number] [place] [address] [place] Hemoglobin (Bld) [Mass/Vol] 8.2 g/dL Low 13.0-17.0 [facility] Comment on above: Order Comment: Speci men Type: BLOOD SPECIMEN Ordering Facility: [facility] Address: [address] [place] [address] Performed By: #### 5 8410-2 #### [facility] [place] [id number] [address] [place] [address] [place] MCH (RBC) [Entitic mass] 30.5 pg Normal 26.0-34.0 [facility] Comment on above: Order Comment: Speci men Type: BLOOD SPECIMEN Ordering Facility: [facility] Address: [address] [place] [address] Performed By: #### 5 8410-2 #### [facility] IA [id number] [place] [address] [place] MCHC (RBC) [Mass/Vol] 29.7 g/dL Low 30.5-36.0 [facility] Comment on above: Order Comment: Speci men Type: BLOOD SPECIMEN Ordering Facility: [facility] Address: [address] [place] [address] Performed By: #### 5 8410-2 #### [facility] CLIA [id number] [place] [address] [place] MCV (RBC) [Entitic vol] 102.6 fL High 80.0-100.0 [facility] Comment on above: Order Comment: Speci men Type: BLOOD SPECIMEN Ordering Facility: [facility] Address: [address] [place] [address] Performed By: #### 5 8410-2 #### [facility] CLIA [id number] [place] [address] [place] Nucleated RBC (Bld) [#/Vol] 0.02 10*3/uL High <0.01 [facility] Comment on above: Order Comment: Speci men Type: BLOOD SPECIMEN Ordering Facility: [facility] Address: [address] [place] [address] Performed By: #### 5 8410-2 #### [facility] CLIA [id number] [place] [address] [place] Platelet mean volume (Bld) [Entitic vol] 10.5 fL Normal 9.0-12.7 [facility] Comment on above: Order Comment: Speci men Type: BLOOD SPECIMEN Ordering Facility: [facility] Address: [address] [place] [address] Performed By: #### 5 8410-2 #### [facility] CLIA [id number] [address] [place] [address] [place] Platelets (Bld) [#/Vol] 174 10*3/uL Normal 150-400 [facility] Comment on above: Order Comment: Speci men Type: BLOOD SPECIMEN Ordering Facility: [facility] Address: [address] [place] [address] Performed By: #### 5 8410-2 #### [facility] CLIA [id number] [place] [address] [facility] RBC (Bld) [#/Vol] 2.69 10*6/uL Low 4.20-6.00 [facility] Comment on above: Order Comment: Dylan olvera Type: BLOOD SPECIMEN Ordering Facility: [facility] Address: [address] [place] [address] Performed By: #### 5 8410-2 #### [facility] CLIA [id number] [address] [place] [address] [facility] WBC (Bld) [#/Vol] 5.62 10*3/uL Normal 3.70-11.00 [facility] Comment on above: Order Comment: Rozi may Type: BLOOD SPECIMEN Ordering Facility: [facility] Address: [address] [place] [address] Performed By: #### 5 8410-2 #### [facility] CLIA [id number] [place] [id number] [facility] CNDSon 05-09-2024 CNDS HNO ID: [id number] Author: CHERYL LEES MD Service: Hospital Medicine Author Type: Physician Type: Discharge Summary Filed: 05/09/2024 22:08 Note Text: DISCHARGE SUMMARY PATIENT NAME: José Miguel Antonio Jr. ADMISSION DATE: 05/06/2024 DISCHARGE DATE: 05/09/2024 ATTENDING PHYSICIAN: No att. providers found Code Status: Full Code Highest Readmission Risk Score: 23 The 30 day readmissions risk score is derived from an internally validated risk model which evaluates patient level characteristics, utilization history, medication orders and lab results up until the day of discharge. Patients with a score of 40 or above are considered highest risk for readmission. Specific patient level drivers will be listed at the bottom of the summary. CONSULTING TEAMS DURING HOSPITALIZATION: Cardiology GI Treatment Team: Consulting: Abdulaziz Benitez MD REASON FOR HOSPITALIZATION: weakness, fatigue, SANTILLAN DIAGNOSIS: Principal Problem: Acute blood loss anemia (POA: Yes) Active Problems: Carotid stenosis, 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, left (POA: Yes) S/P CABG (coronary artery bypass graft) (POA: Yes) 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 (POA: Yes) Chronic systolic CHF (congestive heart failure) (HCC) (POA: Yes) Severe mitral regurgitation (POA: Yes) Atrial fibrillation (HCC) (POA: Yes) LV (left ventricular) mural thrombus (POA: Yes) Hyperlipidemia (POA: Yes) 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 kidney disease, unspecified CKD stage, 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 * OPERATIONS DURING HOSPITALIZATION: None PROCEDURES DURING HOSPITALIZATION: No procedures performed HOSPITAL COURSE: This is a 84 year old male with hx of ICM s/p ICD 2018, CHFrEF (EF 17%), severe MR s/p MV clip 02/18/2024, s/p left carotid stenting 03/09/24, 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 Pt had mitral valve clip done 02/17. He was found to have A-fib after procedure and he was started on Eliquis 2.5 mg BID for AC given his age and renal function. He was then admitted in February again due to amaurosis fugax of left eye due to known severe left proximal ICA stenosis and underwent left carotid stenting 03/06/24. He was put on 325 mg asa and Plavix for 4 weeks. AC was held while on DAPT. Pt had repeat echo done 03/29 which showed LV thrombus. He was restarted on Xarelto. He remained on 325 mg asa daily and Plavix was d/renate. Pt c/o worsening SANTILLAN, fatigue and generalized weakness the past few weeks. In the ED, VSS. Hb 8.8, baseline 11-12. ProBNP 08441 .CXR: left pleural effusions (new compares to 02/2024). Pt has crimson colored stool that is guaiac positive. Pt was evaluated by GI and cardiology while admitted. Asa and xarelto were on hold and pt was started on hepatin gtt. H/H remained stable. Initial plan was EGD/colonoscopy on Saturday. 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 Pt was accepted to . Transitions of Care Critical Issues: Hold asa and xarelto On heparin gtt Protonix IV BID LABS AND PROCEDURES PENDING AT DISCHARGE: No pending results. PATIENT CONDITION AT DISCHARGE: Stable DISCHARGE DISPOSITION: Home with Self Care Discharge Physical Exam: VITAL SIGNS: BP 119/64 Pulse 74 Temp 36.3 ?C (97.3 ?F) Resp 18 Ht 182.9 cm (6') Wt 81.1 kg (178 lb 12.7 oz) SpO2 100% BMI 24.25 kg/m? GENERAL: Alert, no distress, cooperative SKIN: Warm and dry, well perfused EYES: PERRLA, EOMI OROPHARYNX: Mucosa moist LUNGS: Lungs clear to auscultation, no wheezes or crackles CARDIAC: Normal S1 and S2; no murmurs ABDOMEN: Abdomen soft, non-tender, BS normal EXTREMITIES: No edema, no ulcers, no skin discolorations NEURO: Awake and alert X 3, no focal neuro deficits PULSES: 2+ radial WOUND/SURGICAL SITE CARE: None DIET: Resume pre-hospital diet Regular ACTIVITY: Resume pre-hospital activity ALLERGIES Allergen Reactions Latex Rash Adhesive Tape (Keyanna* Rash DISCHARGE MEDICATION: Medication List START taking these medications acetaminophen 325 mg ta (more content not included)... [facility] CONSULT Umer 05-09-2024 CONSULT PROG HNO ID: [id number] Author: JOSÉ MIGUEL WHEELER PA-C Service: Cardiovascular Medicine Author Type: Physician Flux Tube Attendant Type: Consult Progress Note Filed: 05/09/2024 10:56 Note Text: [facility] CARDI[facility]ASCULAR MEDICINE PROGRESS NOTE (Template ID [id number]) SERVICE DATE: 05/09/2024 SERVICE TIME: 0900 PRIMARY SERVICE: HOSPITAL DAY: #3 INTERVAL HISTORY Pt reports dark stools last evening Mild dyspnea with moderate activity PHYSICAL EXAM BP 106/66 Pulse 67 Temp 36.6 ?C (97.9 ?F) (Oral) Resp 20 Ht 182.9 cm (6') Wt 81.1 kg (178 lb 12.7 oz) SpO2 92% BMI 24.25 kg/m? Intake/Output Summary (Last 24 hours) at 05/09/2024 0915 Last data filed at 05/09/2024 0617 Gross per 24 hour Intake 350 ml Output 750 ml Net -400 ml General: Well appearing, in no acute distress Neck: No jugular venous distention, no carotid bruits Lungs: CTAB Heart: Regular rhythm, S1, S2 present Abdomen: Soft, NT/ND, BS + Extremities: trace LE edema, pulses equal MEDICATIONS Current Facility-Administered Medications Medication Dose Route Frequency pantoprazole 40 mg injection (PROTONIX) 40 mg INTRAVENOUS BID AC (0600/1600) Followed by [START ON 05/10/2024] pantoprazole 40 mg injection (PROTONIX) 40 mg INTRAVENOUS DAILY (6 AM) atorvastatin 40 mg tab(s) (LIPITOR) 40 mg ORAL AT BEDTIME ezetimibe 10 mg tab(s) (ZETIA) 10 mg ORAL DAILY metoprolol succinate ER 25 mg tab(s) (TOPROL XL) 25 mg ORAL DAILY thyroid 60 mg tab(s) 60 mg ORAL DAILY thyroid 15 mg tab(s) 15 mg ORAL DAILY NaCl 0.9% iv flush bag 20 mL INTRAVENOUS PRN acetaminophen 650 mg tab(s) (TYLENOL) 650 mg ORAL q 6 H PRN heparin iv infusion 25,000 units in NaCl 0.45% 250 mL LOW DOSE/ACS NOMOGRAM 0-3,000 Units/hr INTRAVENOUS CONTINUOUS And heparin RATE CHANGE bolus 1,000-4,000 Units for subtherapeutic PTTAC results 1,000-4,000 Units INTRAVENOUS PRN enteric contrast (radiology procedure) ORAL DIRECTED PRN polyethylene glycol 3350 17 g packet 17 g ORAL DAILY senna-docusate 8.6-50 mg 1 tablet (SENNA-S) 1 tablet ORAL BID furosemide 40 mg tab(s) (LASIX) 40 mg ORAL DAILY DATA: Diagnostic tests reviewed for today's visit: Most recent labs and imaging results. TTE 05/06: CONCLUSIONS: - Exam indication: Limited S/P MV Clip - Left ventricular systolic function is severely decreased. EF = 15 ? 5% (visual est.) Left ventricular diastolic function was not evaluated due to AF and mitral valve surgery. Beat to beat variability due to arrhythmia. - The right ventricle is dilated. Right ventricular systolic function is moderately decreased. - Percutaneous fmex-pf-qppr repair of the mitral valve with 1 clip. Mitraclip G4 XT. There is moderate (2+) mitral valve regurgitation. The peak gradient is 8 mmHg and the mean gradient is 2 mmHg. Prior MV peak/mean gradients were 5/1 mmHg. Today's gradients were obtained at 81 bpm. - There is moderate (2+ - 3+) tricuspid valve regurgitation. - Echodensity in the LV, near the posterior mitral leaflet, seen on prior, was visualized at today's exam measuring 1.4 cm x 1.1 cm (clip #68). - Exam was compared with the prior echocardiographic exam performed on 03/30/2024. NO sig change in E f; echodensity in proximity to posterior MV annulus is still present but smaller ; ? artifacts vs thrombus ; please clinically correlate Medication and Non-Pharmacologic VTE Prophylaxis/Anticoagulants Anticoagulant AND Antiplatelet Medications (From admission, onward) Start Dose Route Frequency Last Action Ordered Stop 05/07/24 1200 heparin iv infusion 25,000 units in NaCl 0.45% 250 mL LOW DOSE/ACS NOMOGRAM (Heparin Infusion + Bolus for Subtherapeutic PTTAC) 0-30 mL/hr Placed in And Linked Group 0-3,000 Units/hr INTRAVENOUS CONTINUOUS Rate/Dose Calculated - Heparin, 05/09 0606 05/07/24 1155 -- 05/06/24 2130 activity - mobilize patient (ma,md) VTE Prophylaxis: VTE prophylaxis appropriate ASSESSMENT AND PLAN Chronic systolic HF - TTE 05/06: LVEF 15% - s/p ICD - appears clinically compensated - GDMT: Toprol 25mg Farxiga on hold - Diuretic: lasix 40mg daily - strict I/O's, daily wts CAD - s/p CABG '12(OTTO-LAD, SVG-OM, SVG-PDA) - C with patent OTTO and SVG to OM. Occluded SVG to PDA - stable - cont statin, ASA on hold VHD - Mod MR/TR LV thrombus - TTE as above - xarelto on hold in setting of anemia, IV heparin HLD - cont zetia, ator Plan of care to be discussed with Dr. De Los Santos Agree with transfer to [facility] for further evaluation and care José Miguel Wheeler PA-C Cardiology consults SIGNATURE: José Miguel Wheeler PA-C PATIENT NAME: José Miguel Antonio Jr. DATE: May 09, 2024 TIME: 9:15 AM For communication after 5 pm on weekdays and after 12 pm on weekends, please page the following: - Clinical Cardiology patients on all floors: page [phone] - All other patients: after hours RYLIE page [phone] - For any urgent or emerge (more content not included)... Normal [facility] Comprehensive metabolic 2000 panelon 05-09-2024 Albumin [Mass/Vol] 3.4 g/dL Low 3.9-4.9 [facility] Comment on above: Order Comment: Speci men Type: BLOOD SPECIMENOrdering Facility: [facility] Address: [address] [place] [address] Performed By: #### 2 4323-8, 59301-5, 58883-1, 3016-3 ####[facility] [id number] [place] [address] [place] ALP [Catalytic activity/Vol] 88 U/L Normal 38-113 [facility] Comment on above: Order Comment: Speci men Type: BLOOD SPECIMENOrdering Facility: [facility] Address: [address] [place] [address] Performed By: #### 2 4323-8, 44187-1, 74081-6, 3016-3 ####[facility] [id number] [place] [address] [place] ALT [Catalytic activity/Vol] 11 U/L Normal 10-54 [facility] Comment on above: Order Comment: Speci men Type: BLOOD SPECIMENOrdering Facility: [facility] Address: [address] [place] [address] Performed By: #### 2 4323-8, 97609-0, 73980-3, 3016-3 ####[facility]CL[facility] [id number] [address] [address] [place] Anion gap [Moles/Vol] 10 mmol/L Normal 8-15 [facility] Comment on above: Order Comment: Speci men Type: BLOOD SPECIMENOrdering Facility: [facility] Address: [address] [place], [place] [address] Performed By: #### 2 4323-8, 48732-5, 66379-6, 3016-3 ####[facility] LABCL[facility] [id number] [address] [address] [place] AST [Catalytic activity/Vol] 17 U/L Normal 14-40 [facility] Comment on above: Order Comment: Speci men Type: BLOOD SPECIMENOrdering Facility: [facility] Address: [address] [place], [place] [address] Performed By: #### 2 4323-8, 29395-3, 73046-7, 3016-3 ####[facility] [id number] [address] [address] [place] Bilirubin [Mass/Vol] 0.7 mg/dL Normal 0.2-1.3 [facility] Comment on above: Order Comment: Speci men Type: BLOOD SPECIMENOrdering Facility: [facility] Address: [address] [place] [address] Performed By: #### 2 4323-8, 84309-9, 70438-3, 3016-3 ####[facility]CL[facility] [id number] [address] [address] [place] Calcium [Mass/Vol] 8.9 mg/dL Normal 8.5-10.2 [facility] Comment on above: Order Comment: Speci men Type: BLOOD SPECIMENOrdering Facility: [facility] Address: [address] [place] [address] Performed By: #### 2 4323-8, 50507-0, 21726-6, 3016-3 ####[facility] LABCLIA [id number] [place] [id number] [place] Chloride [Moles/Vol] 106 mmol/L Normal 98-107 [facility] Comment on above: Order Comment: Speci men Type: BLOOD SPECIMENOrdering Facility: [facility] Address: [address] [place] [address] Performed By: #### 2 4323-8, 38359-4, 99933-6, 3016-3 ####[facility]CL[facility] [id number] [place] [address] [place] CO2 [Moles/Vol] 23 mmol/L Normal 22-30 [facility] Comment on above: Order Comment: Speci men Type: BLOOD SPECIMENOrdering Facility: [facility] Address: [address] [place] [address] Performed By: #### 2 4323-8, 51877-9, 96606-8, 3016-3 ####[facility]CL[facility] [id number] [place] [address] [place] Creatinine [Mass/Vol] 2.02 mg/dL High 0.73-1.22 [facility] Comment on above: Order Comment: Speci men Type: BLOOD SPECIMENOrdering Facility: [facility] Address: [address] [place] [address] Performed By: #### 2 4323-8, 47300-3, 25918-8, 3016-3 ####[facility] LABCLIA [id number] [place] [id number] [place] Creatinine and Glomerular filtration rate.predicted panel (S/P/Bld) 32 mL/min/1.73m??? Low >=60 [facility] Comment on above: Order Comment: Speci men Type: BLOOD SPECIMENOrdering Facility: [facility] Address: [address] [place] [address] Result Comment: Etta mated Glomerular Filtration Rate [...] actual GFR. Performed By: #### 2 4323-8, 17590-8, 08124-8, 6-3 ####[facility] [id number] [address] [address] [place] Glucose [Mass/Vol] 96 mg/dL Normal 74-99 [facility] Comment on above: Order Comment: Dylan olvera Type: BLOOD SPECIMENOrdering Facility: [facility] Address: [address] [place] [address] Result Comment: The [place] Diabetes Association (ADA) provides guidance for cutoff values for fasting glucose and random glucose. The ADA defines fasting as no caloric intake for at least 8 hours. Fasting plasma glucose results between 100 to 125 mg/dL indicate increased risk for diabetes (prediabetes).Fasting plasma glucose results greater than or equal to 126 mg/dL meet the criteria for diagnosis of diabetes. In the absence of unequivocal hyperglycemia, results should be confirmed by repeat testing. In a patient with classic symptoms of hyperglycemia or hyperglycemic crisis, random plasma glucose results greater than or equal to 200 mg/dL meet the criteria for diagnosis of diabetes.Reference: Standards of Medical Care in Diabetes 2016, [place] Diabetes Association. Diabetes Care. 2016.39(Suppl 1). Performed By: #### 2 4323-8, 55720-5, 46344-9, 6-3 ####[facility] [id number] [address] [address] [place] Potassium [Moles/Vol] 4.3 mmol/L Normal 3.7-5.1 [facility] Comment on above: Order Comment: Dylan men Type: BLOOD SPECIMENOrdering Facility: [facility] Address: [address] [place] [address] Performed By: #### 2 4323-8, 16762-8, 29110-9, 3016-3 ####[facility] [id number] [place] [address] [place] Protein [Mass/Vol] 6.0 g/dL Low 6.3-8.0 [facility] Comment on above: Order Comment: Speci men Type: BLOOD SPECIMENOrdering Facility: [facility] Address: [address] [place] [address] Performed By: #### 2 4323-8, 94979-7, 03850-4, 6-3 ####[facility] [id number] [place] [address] [place] Sodium [Moles/Vol] 139 mmol/L Normal 136-144 [facility] Comment on above: Order Comment: Speci men Type: BLOOD SPECIMENOrdering Facility: [facility] Address: [address] [place] [address] Performed By: #### 2 4323-8, 97471-5, 26796-8, 6-3 ####[facility] [id number] [place] [address] [place] Urea nitrogen [Mass/Vol] 35 mg/dL High 9-24 [facility] Comment on above: Order Comment: Speci men Type: BLOOD SPECIMENOrdering Facility: [facility] Address: [address] [place] [address] Performed By: #### 2 4323-8, 63042-4, 88350-3, 3016-3 ####[facility] [id number] [place] [address] [place] ECG COMPLETEon 05-09-2024 ECG COMPLETE Normal [facility] EKGon 05-09-2024 Electrocardiogram Ventricular Rate : 8 5 BPM Atrial Rate : 85 BPM P-R Interval : 181 ms QRS Duration : 123 ms Q-T Interval : 413 ms QTC Calculation(Bazett) : 492 ms Calculated P [place] : 78 degrees Calculated R [place] : -6 degrees Calculated T [place] : 135 degrees Sinus rhythm Multiform ventricular premature complexes Left bundle branch block Abnormal ECG Confirmed by SHERIE OSBORNE M.D. ([id number]) on 05/11/2024 3:03:05 PM NAME : JOSÉ MIGUEL ANTONIO PID : [id number] : 1940 Gender : Male Race : ORD : Procedure Date : May 09 2024 01:57:07 Edit Date : May 11 2024 15:03:08 Diagnosis: Sinus rhythm Multiform ventricular premature complexes Left bundle branch block Abnormal ECG Confirmed by SHERIE OSBORNE M.D. ([id number]) on 05/11/2024 3:03:05 PM Test Reason : Location : 300 : EKG 336 Overread By : SHERIE OSBORNE M.D. Edited By : SHERIE OSBORNE M.D. Referred By : , Acquired by : [id number], [facility] Electrocardiogram Ventricular Rate : 8 5 BPM Atrial Rate : 85 BPM P-R Interval : 180 ms QRS Duration : 123 ms Q-T Interval : 406 ms QTC Calculation(Bazett) : 483 ms Calculated P [place] : 69 degrees Calculated R [place] : -7 degrees Calculated T [place] : 145 degrees Sinus rhythm Ventricular premature complex Left bundle branch block Abnormal ECG Confirmed by SHERIE OSBORNE M.D. ([id number]) on 05/11/2024 3:03:15 PM NAME : JOSÉ MIGUEL ANTONIO PID : [id number] : 1940 Gender : Male Race : ORD : Procedure Date : May 09 2024 01:57:54 Edit Date : May 11 2024 15:03:18 Diagnosis: Sinus rhythm Ventricular premature complex Left bundle branch block Abnormal ECG Confirmed by SHERIE OSBORNE M.D. ([id number]) on 05/11/2024 3:03:15 PM Test Reason : Location : 300 : EKG 336 Overread By : SHERIE OSBORNE M.D. Edited By : SHERIE OSBORNE M.D. Referred By : , Acquired by : [id number], [facility] HIGH SENSITIVITY TROPONIN To n 05-09-2024 Troponin T.cardiac High sensitivity method [Mass/Vol] 38 ng/L High <12 [facility] Comment on above: Order Comment: Speci men Type: BLOOD SPECIMENOrdering Facility: [facility] Address: [address] [place], [place] [address] Performed By: #### H STNT, 21013-0 ####[facility] [id number] [place] [address] [place] HISTORY PHYSICALon HISTORY PHYSICAL Normal [facility] HbA1c (Bld)on 05-09-2024 Average glucose Estimated from glycated hemoglobin (Bld) [Mass/Vol] 82 mg/dL Normal [facility] Comment on above: Order Comment: Speci men Type: BLOOD SPECIMENOrdering Facility: [facility] Address: [address] [place] [address] Result Comment: eAG: (Estimated average glucose) is a calculated value from HgbA1c and is accounting representative of the average blood glucose level in the last 2-3 month period. Performed By: #### 5 5454-3 ####[facility] [id number] [place] [address] [place] HbA1c (Bld) [Mass fraction] 4.5 % Normal 4.3-5.6 [facility] Comment on above: Order Comment: Dylan olvera Type: BLOOD SPECIMENOrdering Facility: [facility] Address: [address] [place] [address] Result Comment: [place] Diabetes Association guidelines indicate that patients with HgbA1c in the range 5.7-6.4% are at increased risk for development of diabetes, and intervention by lifestyle modification may be beneficial. HgbA1c greater or equal to 6.5% is considered diagnostic of diabetes. Performed By: #### 5 5454-3 ####[facility] [id number] [place] [address] [place] Iron and Iron binding capaci ty panelon 05-09-2024 Iron [Mass/Vol] 66 ug/dL Normal 41-186 [facility] Comment on above: Order Comment: Dylan men Type: BLOOD SPECIMENOrdering Facility: [facility] Address: [address] [place] [address] Performed By: #### 2 4323-8, 89429-1, , 3 ####[facility]CL[facility] [id number] [address] [address] [place] Iron binding capacity [Mass/Vol] 250 ug/dL Normal 232-386 [facility] Comment on above: Order Comment: Speci men Type: BLOOD SPECIMENOrdering Facility: [facility] Address: [address] [place] [address] Performed By: #### 2 4323-8, 63947-1, , 3015-3 ####[facility] [id number] [address] [address] [place] Iron/TIBC [Molar ratio] 26.4 % Normal 15.0-57.0 [facility] Comment on above: Order Comment: Speci men Type: BLOOD SPECIMENOrdering Facility: [facility] Address: [address] [place] [address] Performed By: #### 2 4323-8, 64425-5, , 3 ####[facility] [id number] [place] [id number] [place] Magnesium SerPl-mCncon 05-09 Magnesium [Mass/Vol] 2.6 mg/dL High 1.7-2.3 [facility] Comment on above: Order Comment: Speci men Type: BLOOD SPECIMENOrdering Facility: [facility] Address: [address] [place], [place] [address] Performed By: #### 2 4323-8, 15410-7, , 3015-3 ####[facility] [id number] [place] [id number] [place] Magnesium [Mass/Vol] 2.4 mg/dL High 1.7-2.3 [facility] Comment on above: Order Comment: Speci men Type: BLOOD SPECIMEN Ordering Facility: [facility] Address: [address] [place] [address] Performed By: #### 3 4528-0, PTTAC #### [facility] CLIA [id number] [address] [place] [facility] Natriuretic peptide.B prohormone N-Terminal [Mass/Vol] 36777 pg/mL High <450 [facility] Comment on above: Order Comment: Speci men Type: BLOOD SPECIMENOrdering Facility: [facility] Address: [address] [place] [address] Performed By: #### H STNT, 94389-7 ####[facility]CL[facility] [id number] [facility] [place] [place] [address] [place] NURSING PROGon 05-09-2024 NURSING PROG Normal [facility] NURSING PROG HNO ID: [id number] Author: BO ZHAO RN Service: Nursing Author Type: Registered Nurse Type: Nursing Progress Note Filed: 05/09/2024 13:26 Note Text: Patient accepted at [facility]: G81, Bed 15 11:00 - Clinical hand off report given to receiving RNMorena @ . Receiving RN and patient aware that patient will be transported with the Heparin drip. Next lab draw to occur at 12:00, (prior to or after arrival dependent upon timing of transport). 12:30 - Scheduled Heparin draw completed at [place]. APPTT @ 72.4. Dose changed per Nomogram. Next scheduled lab draw @ 18:00. Receiving RN at [facility] and patient are aware. Patient requesting daily lasix dose be given after arrival to [facility]. Receiving RN aware. Patient is aware of, has actively participated in, and is in agreement with treatment plan of care. 13:25 - Patient transferred to [facility] transport in stable condition BP 100/61 Pulse 77 Temp 36.5 ?C (97.7 ?F) (Oral) Resp 18 Ht 182.9 cm (6') Wt 81.1 kg (178 lb 12.7 oz) SpO2 98% BMI 24.25 kg/m? Normal [facility] PT panel Coag (PPP)on 2023 INR Coag (PPP) [Relative time] 1.3 {INR} Normal 0.9-1.3 [facility] Comment on above: Order Comment: Dylan olvera Type: BLOOD SPECIMENOrdering Facility: [facility] Address: [address] [place] [id number] Result Comment: Loulou min K Antagonist (VKA) Therapeutic Range: INR 2 to 3 (Target INR of 2.5)Note: For patients treated with VKA drugs, such as warfarin, the [place] [employer] 2012 Guideline recommends a therapeutic INR range of 2 to 3 (target INR of 2.5). This recommendation includes high-risk patients with antiphospholipid syndrome with previous arterial or venous thromboembolism, current-generation mechanical or bioprosthetic aortic heart valve replacement.Note: Patients with mechanical aortic valve replacement and additional risk factors for thromboembolic events (atrial fibrillation, previous thromboembolism, LV dysfunction, hypercoagulable conditions) or an older generation mechanical AVR (i.e., ball in-Cage) or any mechanical MVR should have a INR therapeutic range of 2.5 to 3.5 (target INR of 3).Olamide CHAUHAN, et al. Chest 2012, 141:7S-47SNishsierra RA, et al. [facility] 2017, 70: 252-289 Performed By: #### 3 4528-0, PTTAC ####[facility] [id number] [place] [address] [place] PT Coag (PPP) [Time] 13.3 s High 9.7-13.0 [facility] Comment on above: Order Comment: Dylan olvera Type: BLOOD SPECIMENOrdering Facility: [facility] Address: [address] [id number] Performed By: #### 3 4528-0, PTTAC ####[facility] [id number] [place] [address] [place] PTT, ANTICOAGULANT THERAPYon 05-09-2024 aPTT Coag (PPP) [Time] 31.7 s Normal 23.0-32.4 [facility] Comment on above: Order Comment: Dylan olvera Type: BLOOD SPECIMENOrdering Facility: [facility] Address: [address] [place] [address] Performed By: #### 3 4528-0, PTTAC ####[facility] [id number] [place] [address] [place] aPTT Coag (PPP) [Time] 72.4 s High 23.0-32.4 [facility] Comment on above: Order Comment: Speci men Type: BLOOD SPECIMEN Ordering Facility: [facility] Address: [address] [place] [address] Performed By: #### P TTAC #### [facility] CLIA [id number] [place] [address] [place] aPTT Coag (PPP) [Time] 82.1 s High 23.0-32.4 [facility] Comment on above: Order Comment: Speci men Type: BLOOD SPECIMEN Ordering Facility: [facility] Address: [address] [place] [address] Performed By: #### L [id number] #### [facility] CLIA [id number] [address] [place] [address] [place] TSH SerPl-aCncon 05-09-2024 TSH Qn 0.519 m[IU]/L Normal 0.270-4.200 [facility] Comment on above: Order Comment: Speci men Type: BLOOD SPECIMENOrdering Facility: [facility] Address: [address] [place] [address] Performed By: #### 2 4323-8, 18595-3, 79667-0, 3016-3 ####[facility] [id number] [place] [address] [place] XR CHEST 1V FRONTAL PORTon 0 05-09-2024 XR CHEST 1V FRONTAL PORT Normal [facility] Basic metabolic 2000 panelon 05-08-2024 Anion gap [Moles/Vol] 11 mmol/L Normal 8-15 [facility] Comment on above: Order Comment: Speci men Type: BLOOD SPECIMEN Ordering Facility: [facility] Address: [address] [place] [address] Performed By: #### 3 4528-0, PTTAC #### [facility] CLIA [id number] [place] [address] [place] Calcium [Mass/Vol] 8.4 mg/dL Low 8.5-10.2 [facility] Comment on above: Order Comment: Speci men Type: BLOOD SPECIMEN Ordering Facility: [facility] Address: [address] [place] [address] Performed By: #### 3 4528-0, PTTAC #### [facility] CLIA [id number] [place] [address] [place] Chloride [Moles/Vol] 105 mmol/L Normal 98-107 [facility] Comment on above: Order Comment: Speci men Type: BLOOD SPECIMEN Ordering Facility: [facility] Address: [address] [place] [address] Performed By: #### 3 4528-0, PTTAC #### [facility] CLIA [id number] [address] [place] [address] [place] CO2 [Moles/Vol] 24 mmol/L Normal 22-30 [facility] Comment on above: Order Comment: Speci men Type: BLOOD SPECIMEN Ordering Facility: [facility] Address: [address] [place] [address] Performed By: #### 3 4528-0, PTTAC #### [facility] CLIA [id number] [place] [address] [place] Creatinine [Mass/Vol] 2.07 mg/dL High 0.73-1.22 [facility] Comment on above: Order Comment: Speci men Type: BLOOD SPECIMEN Ordering Facility: [facility] Address: [address] [place] [address] Performed By: #### 3 4528-0, PTTAC #### [facility] CLIA [id number] [address] [place] [address] [place] Creatinine and Glomerular filtration rate.predicted panel (S/P/Bld) 31 mL/min/1.73m??? Low >=60 [facility] Comment on above: Order Comment: Dylan olvera Type: BLOOD SPECIMEN Ordering Facility: [facility] Address: [address] [place] [address] Result Comment: Etta mated Glomerular Filtration Rate [...] reflect actual GFR. Performed By: #### 3 4528-0, PTTAC #### [facility] CLIA [id number] [facility] [place] [address] [place] Glucose [Mass/Vol] 105 mg/dL High 74-99 [facility] Comment on above: Order Comment: Dylan olvera Type: BLOOD SPECIMEN Ordering Facility: [facility] Address: [address] [place] [address] Result Comment: The [place] [employer] (ADA) provides guidance for cutoff [...] Standards of Medical Care in Diabetes 2016, [place] [employer]. Diabetes Care. 2016.39(Suppl 1). Performed By: #### 3 4528-0, PTTAC #### [facility] CLIA [id number] [facility] [place] [id number] [place] Potassium [Moles/Vol] 3.4 mmol/L Low 3.7-5.1 [facility] Comment on above: Order Comment: Dylan olvera Type: BLOOD SPECIMEN Ordering Facility: [facility] Address: [address] [place] [address] Performed By: #### 3 4528-0, PTTAC #### [facility] CLIA [id number] [address] [place] [address] [place] Sodium [Moles/Vol] 140 mmol/L Normal 136-144 [facility] Comment on above: Order Comment: Speci men Type: BLOOD SPECIMEN Ordering Facility: [facility] Address: [address] [place] [address] Performed By: #### 3 4528-0, PTTAC #### [facility] CLIA [id number] [place] [address] [place] Urea nitrogen [Mass/Vol] 39 mg/dL High 9-24 [facility] Comment on above: Order Comment: Speci men Type: BLOOD SPECIMEN Ordering Facility: [facility] Address: [address] [place] [address] Performed By: #### 3 4528-0, PTTAC #### [facility] IA [id number] [place] [address] [place] CBC panel Auto (Bld)on 05-08 Erythrocyte distribution width (RBC) [Ratio] 22.1 % High 11.5-15.0 [facility] Comment on above: Order Comment: Speci men Type: BLOOD SPECIMEN Ordering Facility: [facility] Address: [address] [place] [address] Performed By: #### L [id number] #### [facility] CLIA [id number] [address] [place] [address] [place] Hematocrit (Bld) [Volume fraction] 27.9 % Low 39.0-51.0 [facility] Comment on above: Order Comment: Speci men Type: BLOOD SPECIMEN Ordering Facility: [facility] Address: [address] [place] [address] Performed By: #### L [id number] #### [facility] CLIA [id number] [address] [place] [address] [place] Hemoglobin (Bld) [Mass/Vol] 8.1 g/dL Low 13.0-17.0 [facility] Comment on above: Order Comment: Speci men Type: BLOOD SPECIMEN Ordering Facility: [facility] Address: [address] [place] [address] Performed By: #### L [id number] #### [facility] CLIA [id number] [place] MCH (RBC) [Entitic mass] 29.9 pg Normal 26.0-34.0 [facility] Comment on above: Order Comment: Speci men Type: BLOOD SPECIMEN Ordering Facility: [facility] Address: [address] [place] [address] Performed By: #### L [id number] #### [facility] IA [id number] [address] [place] [address] [place] MCHC (RBC) [Mass/Vol] 29.0 g/dL Low 30.5-36.0 [facility] Comment on above: Order Comment: Speci men Type: BLOOD SPECIMEN Ordering Facility: [facility] Address: [address] [place] [address] Performed By: #### L [id number] #### [facility] IA [id number] [address] [place] [address] [place] MCV (RBC) [Entitic vol] 103.0 fL High 80.0-100.0 [facility] Comment on above: Order Comment: Speci men Type: BLOOD SPECIMEN Ordering Facility: [facility] Address: [address] [place] [address] Performed By: #### L [id number] #### [facility] CLIA [id number] [place] Nucleated RBC (Bld) [#/Vol] 10*3/uL Normal <0.01 [facility] Comment on above: Order Comment: Speci men Type: BLOOD SPECIMEN Ordering Facility: [facility] Address: [address] [place] [address] Performed By: #### L [id number] #### [facility] CLIA [id number] [place] [address] [place] Platelet mean volume (Bld) [Entitic vol] 10.6 fL Normal 9.0-12.7 [facility] Comment on above: Order Comment: Speci men Type: BLOOD SPECIMEN Ordering Facility: [facility] Address: [address] [place] [address] Performed By: #### L [id number] #### [facility] CLIA [id number] [place] [address] [place] Platelets (Bld) [#/Vol] 166 10*3/uL Normal 150-400 [facility] Comment on above: Order Comment: Speci men Type: BLOOD SPECIMEN Ordering Facility: [facility] Address: [address] [place] [address] Performed By: #### L [id number] #### [facility] CLIA [id number] [address] [place] [address] [place] RBC (Bld) [#/Vol] 2.71 10*6/uL Low 4.20-6.00 [facility] Comment on above: Order Comment: Speci men Type: BLOOD SPECIMEN Ordering Facility: [facility] Address: [address] [place] [address] Performed By: #### L [id number] #### [facility] CLIA [id number] [address] [place] [address] [facility] [place] WBC (Bld) [#/Vol] 5.29 10*3/uL Normal 3.70-11.00 [facility] Comment on above: Order Comment: Speci men Type: BLOOD SPECIMEN Ordering Facility: [facility] Address: [address] [place] [address] Performed By: #### L [id number] #### [facility] CLIA [id number] CONSULT PROGon 05-08-2024 CONSULT PROG HNO ID: [id number] Author: LORENA GALINDO APRN.VEGETABLE BUNCHER Service: Gastroenterology Author Type: Nurse Practitioner Type: Consult Progress Note Filed: 05/08/2024 15:15 Note Text: Brief GI plan of care: Met with patient at bedside. Called 3 daughters via speaker phone whom were industrial relations counselor for entire interview. Patient is still struggling with the idea of having EGD, Colonoscopy on Saturday specific concerns include drinking full bowel prep as well as going under anesthesia for procedures. Cardiology notes reviewed. Lengthy discussion took place ~1 hr long to answer all questions to the best of my ability and help guide patient/family in decision making process. At this time, they remain undecided regarding final procedures but ultimately leaning toward endoscopic eval being EGD/Colon vs EGD/flex sig to take place on Saturday, 05/11. Of note, pt is on a 1500 mL per day fluid restriction so it was explained bowel prep would need to be split over 2 days. Patient has not had a BM since admission. Appetite poor. Hgb in 8 range for the past 48 hrs. Remains on Hep gtt. In the interim-they would like to proceed with some abdominal imaging as patient carries h/o prostate CA and has not had CT A/P in 3 years according to review of Epic record/Care Everywhere. Spoke with Alex (operating room surgical technologist) whom states no adverse effects of oral contrast to kidney so will proceed with CT A/P oral contrast only at this time. GI team to follow along with results of Ct, final decisions this weekend. Spoke with INOCENTE Dobbins (endo coordinator) whom states is was confirmed per anesthesia yesterday case can be done at [facility] so long as during working hours (not with industrial relations counselor staff/resources). Updated Dr. Heredia, Dr. Bardales. Normal [facility] CONSULT PROG HNO ID: [id number] Author: DEBBI NICOLE APRN.DOROTHY Service: Cardiovascular Medicine Author Type: Nurse Practitioner Type: Consult Progress Note Filed: 05/08/2024 10:46 Note Text: [facility] CONSULT PROGRESS NOTE (Template ID [id number]) CONSULTING SERVICE: Cardiology: Consult Team PRIMARY SERVICE: Internal Medicine HOSPITAL DAY: #2 REASON FOR CONSULT: CHF S/P MV Clip 02/18/2024 LV Thrombus 03/29/2024-on Xarelto GIB INTERVAL HISTORY: No acute CV events overnight. No specific CV symptoms this morning. He does report frustration with lack of sleep due to frequent awakening OVN/early am. REVIEW OF SYSTEMS: Pertinent 14 point ROS systems reviewed. Pertinent information, positive and/or negative or non-contributory with the exception of pertinent positives described in HPI. Past Medical, Family and Social history reviewed; unchanged from prior. OBJECTIVE MEDICATIONS: Current Facility-Administered Medications Medication Dose Route Frequency pantoprazole 40 mg injection (PROTONIX) 40 mg INTRAVENOUS BID AC (0600/1600) Followed by [START ON 05/10/2024] pantoprazole 40 mg injection (PROTONIX) 40 mg INTRAVENOUS DAILY (6 AM) atorvastatin 40 mg tab(s) (LIPITOR) 40 mg ORAL AT BEDTIME ezetimibe 10 mg tab(s) (ZETIA) 10 mg ORAL DAILY metoprolol succinate ER 25 mg tab(s) (TOPROL XL) 25 mg ORAL DAILY thyroid 60 mg tab(s) 60 mg ORAL DAILY thyroid 15 mg tab(s) 15 mg ORAL DAILY NaCl 0.9% iv flush bag 20 mL INTRAVENOUS PRN acetaminophen 650 mg tab(s) (TYLENOL) 650 mg ORAL q 6 H PRN heparin iv infusion 25,000 units in NaCl 0.45% 250 mL LOW DOSE/ACS NOMOGRAM 0-3,000 Units/hr INTRAVENOUS CONTINUOUS And heparin RATE CHANGE bolus 1,000-4,000 Units for subtherapeutic PTTAC results 1,000-4,000 Units INTRAVENOUS PRN PHYSICAL EXAM: 05/07/24 2040 05/08/24 0014 05/08/24 0436 05/08/24 0739 BP: 99/59 97/59 98/72 (!) 96/46 Pulse: 62 68 (!) 47 83 Resp: 18 18 18 20 Temp: 36.4 ?C (97.5 ?F) 36.3 ?C (97.3 ?F) TempSrc: Oral Oral Oral Oral SpO2: 96% 93% 93% 95% Weight: 81.1 kg (178 lb 12.7 oz) Height: General Appearance: No acute distress HEENT: EOM's intact and JVD - no Lungs: Clear Heart: Regular rhythm with freq extrasystoles. Regular rate + murmur Trace edema Abdomen: Non-tender Skin: Warm, Dry, and pale Musculoskeletal: Generalized weakness. Neurologic/Psychiatric: No gross focal neurologic deficits Intake/Output Summary (Last 24 hours) at 05/08/2024 0921 Last data filed at 05/08/2024 0818 Gross per 24 hour Intake -- Output 1100 ml Net -1100 ml TELEMETRY: DATA: Laboratory: Recent Labs 05/08/24 0628 05/08/24 0526 05/07/24 1841 05/07/24 0515 05/06/24 1705 WBC -- 5.29 5.25 6.32 6.52 HB -- 8.1* 8.0* 8.4* 8.8* HCT -- 27.9* 27.2* 28.8* 29.6* PLT -- 166 158 160 194 NA 140 -- -- 140 140 K 3.4* -- -- 3.6* 4.1 CHLOR 105 -- -- 104 103 CO2 24 -- -- 25 24 BUN 39* -- -- 42* 40* CREAT 2.07* -- -- 2.09* 2.07* GLUC 105* -- -- 93 105* Recent Labs 05/07/24 1211 INR 1.4* Magnesium Date Value Ref Range Status 05/08/2024 2.3 1.7 - 2.3 mg/dL Final ECHO 05/06/2024 CONCLUSIONS: - Exam indication: Limited S/P MV Clip - Left ventricular systolic function is severely decreased. EF = 15 ? 5% (visual est.) Left ventricular diastolic function was not evaluated due to AF and mitral valve surgery. Beat to beat variability due to arrhythmia. - The right ventricle is dilated. Right ventricular systolic function is moderately decreased. - Percutaneous [id number]-mk-[id number] repair of the mitral valve with 1 clip. Mitraclip G4 XT. There is moderate (2+) mitral valve regurgitation. The peak gradient is 8 mmHg and the mean gradient is 2 mmHg. Prior MV peak/mean gradients were 5/1 mmHg. Today's gradients were obtained at 81 bpm. - There is moderate (2+ - 3+) tricuspid valve regurgitation. - Echodensity in the LV, near the posterior mitral leaflet, seen on prior, was visualized at today's exam measuring 1.4 cm x 1.1 cm (clip #68). - Exam was compared with the prior echocardiographic exam performed on 03/30/2024. NO sig change in E f; echodensity in proximity to posterior MV annulus is still present but smaller ; ? artifacts vs thrombus ; please clinically correlate SSMENT / RECOMMENDATIONS / PLAN Mr. Antnoio is a 84 year old male followed by Dr Liang Brady at [facility] , who presented from outpatient Echo lab at [facility] to ER due for generalized weakness and SANTILLAN. On admission he was found to be anemic with drop in his H and H. and stools Guaiac +. Treated with iron. NT Pro BNP 19751. CXR: left pleural effusions. He completed 325 mg ASA and Plavix course for 4 weeks. AC was held while on DAPT and started on Xarelto on 03/29/24 for suspected LV thrombus. Chronic combined systolic and diastolic CHF, h/o severe ICM (LV EF ~15%), s/p DC-ICD (in 2019), (more content not included)... Normal [facility] CT ABD/PEL WO IVCONon 2023 CT ABD/PEL WO IVCON * * *Final Report* * * DATE OF EXAM: May 08 2024 1:40PM [facility] 0531 - CT ABD/PEL WO IVCON / PROCEDURE REASON: Anemia * * * * Physician Interpretation * * * * EXAMINATION: CT ABDOMEN AND PELVIS WITHOUT IV CONTRAST CLINICAL HISTORY: Anemia, constipation, history of prostate cancer TECHNIQUE: Non-IV contrast imaging of the abdomen and pelvis was performed using standard technique, scanning from just above the dome of the diaphragm to the symphysis pubis. Unenhanced imaging is limited for the evaluation of some intra-abdominal and pelvic pathology. MQ: CTAPWO_3 Contrast: IV: None Oral: 450 ml of Omni 240 10-25ml diluted with water CT Radiation dose: Integrated Dose-length product (DLP) for this visit = 424 mGy*cm. CT Dose Reduction Employed: Automated exposure control(AEC) and iterative recon COMPARISON: None. RESULT: Abdomen / Pelvis: Liver: No focal hepatic lesion within limitations of this noncontrasted study. Biliary: Gallbladder is unremarkable. No intrahepatic or extra hepatic ductal dilatation. Spleen: No splenomegaly. Pancreas: Unremarkable. Adrenals: No mass. Kidneys: Left kidney is somewhat atrophic compared to the right. No hydronephrosis. No renal stones. Small cyst in the midpole of the right kidney. GI Tract: Stomach is collapsed. Colon is normal in caliber without obstruction. Appendix is unremarkable. Only small amount of stool in the colon. Small bowel is normal in caliber without obstruction Lymph Nodes: No lymphadenopathy. Mesentery/peritoneum: Small volume ascites Retroperitoneum: No mass. Vasculature: Atherosclerosis in the aorta. 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 Pelvis: Urinary bladder is unremarkable. No pelvic lymphadenopathy. Small volume ascites Bones/Soft Tissues: Small fat-containing inguinal hernias bilaterally. No suspicious osseous lesions. Degenerative changes in the lumbar spine. Lower thorax: Small to moderate left and small right pleural effusions. Atelectasis in the left lower lobe. Localizer images: No additional findings. IMPRESSION: 1. Small to moderate left and small right pleural effusions. 2. Small volume ascites. 3. 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 4. Only small volume of stool in the colon. Metal Drill Operator: LUZ MARIA Transcribe Date/Time: May 08 2024 3:12P Dictated by : EVANS SENIOR MD This examination was interpreted and the report reviewed and electronically signed by: EVANS SENIOR MD on May 08 2024 3:24PM EST [id number] Normal [facility] Magnesium SerPl-mCncon 05-08 Magnesium [Mass/Vol] 2.3 mg/dL Normal 1.7-2.3 [facility] Comment on above: Order Comment: Speci men Type: BLOOD SPECIMEN Ordering Facility: [facility] Address: [address] [place] [address] Performed By: #### 3 4528-0, PTTAC #### [facility] CLIA [id number] [address] [place] NURSING PROGon 05-08-2024 NURSING PROG HNO ID: [id number] Author: MANDI IPTTS RN Service: ? Author Type: Registered Nurse Type: Nursing Progress Note Filed: 05/09/2024 04:16 Note Text: 2221: pt had 6-run of V-tach, LIP notified, pt resting in bed comfortably, no s/s. Vitals stable, pt on tele. Per LIP, administer 20 PO potassium, patient declined at this time, pt educated about potassium related to AM lab draw (K=3.4, see lab results) in relation to cardiac maintenance, will re attempt during next round. Will notify LIP accordingly. 0021: potassium given to patient 0147: patient alarmed for v-tach again, LIP notified, EKG taken by this RN. LIP notified regarding LBBB shown on EKG. Per LIP, place in pt chart, follow up with cardio in AM, continue to monitor for now. Vitals stable at this time, patient is asymptomatic, will notify LIP of any changes. Normal [facility] PTT, ANTICOAGULANT THERAPYon 05-08-2024 aPTT Coag (PPP) [Time] 66.1 s High 23.0-32.4 [facility] Comment on above: Order Comment: Dylan olvera Type: BLOOD SPECIMEN Ordering Facility: [facility] Address: [address] [place] [address] Performed By: #### P TTAC #### [facility] CLIA [id number] [address] [place] [address] [facility] aPTT Coag (PPP) [Time] 48.5 s High 23.0-32.4 [facility] Comment on above: Order Comment: Dylan olvera Type: BLOOD SPECIMEN Ordering Facility: [facility] Address: [address] [place] [address] Performed By: #### L [id number] #### [facility] CLIA [id number] [place] [address] [place] [facility] aPTT Coag (PPP) [Time] 56.6 s High 23.0-32.4 [facility] Comment on above: Order Comment: Dylan olvera Type: BLOOD SPECIMEN Ordering Facility: [facility] Address: [address] [place] [address] Performed By: #### P TTAC #### [facility] CLIA [id number] [address] [place] [address] [facility] aPTT Coag (PPP) [Time] 80.2 s High 23.0-32.4 [facility] Comment on above: Order Comment: Dylan olvera Type: BLOOD SPECIMEN Ordering Facility: [facility] Address: [address] [place] [address] Performed By: #### 3 4528-0, PTTAC #### [facility] CLIA [id number] [address] [place] [address] [place] Basic metabolic 2000 panelon 05-07-2024 Anion gap [Moles/Vol] 11 mmol/L Normal 8-15 [facility] Comment on above: Order Comment: Speci men Type: BLOOD SPECIMEN Ordering Facility: [facility] Address: [address] [place] [address] Performed By: #### L [id number] #### [facility] CLIA [id number] [place] [address] [place] Calcium [Mass/Vol] 8.6 mg/dL Normal 8.5-10.2 [facility] Comment on above: Order Comment: Speci men Type: BLOOD SPECIMEN Ordering Facility: [facility] Address: [address] [place] [address] Performed By: #### L [id number] #### [facility] CLIA [id number] [place] [address] [place] Chloride [Moles/Vol] 104 mmol/L Normal 98-107 [facility] Comment on above: Order Comment: Speci men Type: BLOOD SPECIMEN Ordering Facility: [facility] Address: [address] [place] [address] Performed By: #### L [id number] #### [facility] CLIA [id number] [address] [place] [address] [place] CO2 [Moles/Vol] 25 mmol/L Normal 22-30 [facility] Comment on above: Order Comment: Speci men Type: BLOOD SPECIMEN Ordering Facility: [facility] Address: [address] [place] [address] Performed By: #### L [id number] #### [facility] CLIA [id number] [address] [place] [address] [place] Creatinine [Mass/Vol] 2.09 mg/dL High 0.73-1.22 [facility] Comment on above: Order Comment: Dylan olvera Type: BLOOD SPECIMEN Ordering Facility: [facility] Address: [address] [place] [address] Performed By: #### L [id number] #### [facility] CLIA [id number] [facility] [place] [address] [place] Creatinine and Glomerular filtration rate.predicted panel (S/P/Bld) 31 mL/min/1.73m??? Low >=60 [facility] Comment on above: Order Comment: Dylan olvera Type: BLOOD SPECIMEN Ordering Facility: [facility] Address: [address] [place] [address] Result Comment: Etta mated Glomerular Filtration Rate [...] accurately reflect actual GFR. Performed By: #### L [id number] #### [facility] CLIA [id number] [facility] [place] [address] [place] Glucose [Mass/Vol] 93 mg/dL Normal 74-99 [facility] Comment on above: Order Comment: Dylan may Type: BLOOD SPECIMEN Ordering Facility: [facility] Address: [address] [place] [address] Result Comment: The [place] [employer] (ADA) provides guidance for cutoff [...] Standards of Medical Care in Diabetes 2016, [place] [employer]. Diabetes Care. 2016.39(Suppl 1). Performed By: #### L [id number] #### [facility] CLIA [id number] [address] [place] [address] [place] Potassium [Moles/Vol] 3.6 mmol/L Low 3.7-5.1 [facility] Comment on above: Order Comment: Speci men Type: BLOOD SPECIMEN Ordering Facility: [facility] Address: [address] [place] [address] Performed By: #### L [id number] #### [facility] CLIA [id number] [place] [address] [place] Sodium [Moles/Vol] 140 mmol/L Normal 136-144 [facility] Comment on above: Order Comment: Speci men Type: BLOOD SPECIMEN Ordering Facility: [facility] Address: [address] [place] [address] Performed By: #### L [id number] #### [facility] IA [id number] [place] [address] [place] Urea nitrogen [Mass/Vol] 42 mg/dL High 9-24 [facility] Comment on above: Order Comment: Speci men Type: BLOOD SPECIMEN Ordering Facility: [facility] Address: [address] [place] [address] Performed By: #### L [id number] #### [facility] IA [id number] [address] [place] [address] [place] CBC panel Auto (Bld)on 05-07 Erythrocyte distribution width (RBC) [Ratio] 22.4 % High 11.5-15.0 [facility] Comment on above: Order Comment: Speci men Type: BLOOD SPECIMEN Ordering Facility: [facility] Address: [address] [place] [address] Performed By: #### 3 4528-0, PTTAC #### [facility] IA [id number] [address] [place] [id number] [place] Hematocrit (Bld) [Volume fraction] 27.2 % Low 39.0-51.0 [facility] Comment on above: Order Comment: Speci men Type: BLOOD SPECIMEN Ordering Facility: [facility] Address: [address] [place] [address] Performed By: #### 3 4528-0, PTTAC #### [facility] CLIA [id number] STATES OF [facility] Hemoglobin (Bld) [Mass/Vol] 8.0 g/dL Low 13.0-17.0 [facility] Comment on above: Order Comment: Speci men Type: BLOOD SPECIMEN Ordering Facility: [facility] Address: [address] [place] [address] Performed By: #### 3 4528-0, PTTAC #### [facility] IA [id number] [place] [address] [place] MCH (RBC) [Entitic mass] 30.4 pg Normal 26.0-34.0 [facility] Comment on above: Order Comment: Speci men Type: BLOOD SPECIMEN Ordering Facility: [facility] Address: [address] [place] [address] Performed By: #### 3 4528-0, PTTAC #### [facility] IA [id number] [place] MCHC (RBC) [Mass/Vol] 29.4 g/dL Low 30.5-36.0 [facility] Comment on above: Order Comment: Speci men Type: BLOOD SPECIMEN Ordering Facility: [facility] Address: [address] [place] [address] Performed By: #### 3 4528-0, PTTAC #### [facility] CLIA [id number] [place] MCV (RBC) [Entitic vol] 103.4 fL High 80.0-100.0 [facility] Comment on above: Order Comment: Speci men Type: BLOOD SPECIMEN Ordering Facility: [facility] Address: [address] [place] [address] Performed By: #### 3 4528-0, PTTAC #### [facility] CLIA [id number] [address] [place] [address] [place] Nucleated RBC (Bld) [#/Vol] 0.02 10*3/uL High <0.01 [facility] Comment on above: Order Comment: Speci men Type: BLOOD SPECIMEN Ordering Facility: [facility] Address: [address] [place] [address] Performed By: #### 3 4528-0, PTTAC #### [facility] CLIA [id number] [address] [place] [address] [place] Platelet mean volume (Bld) [Entitic vol] 10.5 fL Normal 9.0-12.7 [facility] Comment on above: Order Comment: Speci men Type: BLOOD SPECIMEN Ordering Facility: [facility] Address: [address] [place] [address] Performed By: #### 3 4528-0, PTTAC #### [facility] CLIA [id number] [address] [place] [address] [place] Platelets (Bld) [#/Vol] 158 10*3/uL Normal 150-400 [facility] Comment on above: Order Comment: Speci men Type: BLOOD SPECIMEN Ordering Facility: [facility] Address: [address] [place] [address] Performed By: #### 3 4528-0, PTTAC #### [facility] CLIA [id number] [address] [place] [address] [place] RBC (Bld) [#/Vol] 2.63 10*6/uL Low 4.20-6.00 [facility] Comment on above: Order Comment: Speci men Type: BLOOD SPECIMEN Ordering Facility: [facility] Address: [address] [place] [address] Performed By: #### 3 4528-0, PTTAC #### [facility] CLIA [id number] [address] [place] [address] [place] WBC (Bld) [#/Vol] 5.25 10*3/uL Normal 3.70-11.00 [facility] Comment on above: Order Comment: Speci men Type: BLOOD SPECIMEN Ordering Facility: [facility] Address: [address] [place] [address] Performed By: #### 3 4528-0, PTTAC #### [facility] [place] [id number] [place] Erythrocyte distribution width (RBC) [Ratio] 22.5 % High 11.5-15.0 [facility] Comment on above: Order Comment: Speci men Type: BLOOD SPECIMEN Ordering Facility: [facility] Address: [address] [place] [address] Performed By: #### P TTAC #### [facility] IA [id number] [address] [place] [address] [place] Hematocrit (Bld) [Volume fraction] 28.8 % Low 39.0-51.0 [facility] Comment on above: Order Comment: Speci men Type: BLOOD SPECIMEN Ordering Facility: [facility] Address: [address] [place] [address] Performed By: #### P TTAC #### [facility] IA [id number] [address] [place] [address] [place] Hemoglobin (Bld) [Mass/Vol] 8.4 g/dL Low 13.0-17.0 [facility] Comment on above: Order Comment: Speci men Type: BLOOD SPECIMEN Ordering Facility: [facility] Address: [address] [place] [address] Performed By: #### P TTAC #### [facility] IA [id number] [address] [place] [address] [place] MCH (RBC) [Entitic mass] 30.2 pg Normal 26.0-34.0 [facility] Comment on above: Order Comment: Speci men Type: BLOOD SPECIMEN Ordering Facility: [facility] Address: [address] [place] [address] Performed By: #### P TTAC #### [facility] [id number] [address] [place], [place] [id number] [place] MCHC (RBC) [Mass/Vol] 29.2 g/dL Low 30.5-36.0 [facility] Comment on above: Order Comment: Speci men Type: BLOOD SPECIMEN Ordering Facility: [facility] Address: [address] [place] [address] Performed By: #### P TTAC #### [facility] IA [id number] [address] [place] [address] [place] MCV (RBC) [Entitic vol] 103.6 fL High 80.0-100.0 [facility] Comment on above: Order Comment: Speci men Type: BLOOD SPECIMEN Ordering Facility: [facility] Address: [address] [place] [address] Performed By: #### P TTAC #### [facility] IA [id number] [address] [place] [address] [place] Nucleated RBC (Bld) [#/Vol] 0.03 10*3/uL High <0.01 [facility] Comment on above: Order Comment: Speci men Type: BLOOD SPECIMEN Ordering Facility: [facility] Address: [address] [place] [address] Performed By: #### P TTAC #### [facility] IA [id number] [address] [place] [address] [place] Platelet mean volume (Bld) [Entitic vol] 10.6 fL Normal 9.0-12.7 [facility] Comment on above: Order Comment: Speci men Type: BLOOD SPECIMEN Ordering Facility: [facility] Address: [address] [place] [address] Performed By: #### P TTAC #### [facility] IA [id number] [address] [place] [address] [place] Platelets (Bld) [#/Vol] 160 10*3/uL Normal 150-400 [facility] Comment on above: Order Comment: Speci men Type: BLOOD SPECIMEN Ordering Facility: [facility] Address: [address] [place] [address] Performed By: #### P TTAC #### [facility] IA [id number] [address] [place] [address] [place] [address] [facility] [place] RBC (Bld) [#/Vol] 2.78 10*6/uL Low 4.20-6.00 [facility] Comment on above: Order Comment: Dylan olvera Type: BLOOD SPECIMEN Ordering Facility: [facility] Address: [address] [place] [address] Performed By: #### P TTAC #### [facility] CLIA [id number] [address] [place] [address] [facility] WBC (Bld) [#/Vol] 6.32 10*3/uL Normal 3.70-11.00 [facility] Comment on above: Order Comment: Dylan olvera Type: BLOOD SPECIMEN Ordering Facility: [facility] Address: [address] [place] [address] Performed By: #### P TTAC #### [facility] CLIA [id number] [place] [address] [facility] CONSULTon 05-07-2024 CONSULT HNO ID: [id number] Author: SWATHI DE LOS SANTOS MD Service: Cardiovascular Medicine Author Type: Physician Type: Consults Filed: 05/07/2024 12:07 Note Text: CONSULT: CARDIOLOGY SERVICE SERVICE DATE: 05/07/2024 SERVICE TIME: 9:09 am CONSULTING PHYSICIAN: Richard De Los Santos PCP: Samm Thompson MD ATTENDING: Jamie Heredia MD REASON FOR CONSULT: Chronic CHF, s/p MV clip 02/18/24, LV thrombus on Xarelto, now concern for GIB My recommendations will be communicated to consulting physician via shared EMR Subjective CHIEF COMPLAINT: Generalized weakness [R53.1] Acute blood loss anemia [D62] HISTORY OF PRESENT ILLNESS: Mr. Antonio is a 84 year old male followed by Dr Liang Brady at [facility] with h/o severe ICM (LV EF ~15%), s/p DC-ICD (in 2018), prior CABG (in 2011, last cath in 2021 with patent OTTO-LAD and SVG to OM, with occluded VG to PDA), prior stroke in 2020 s/p tPA, COPD (remote tobacco use), CKD (crea ~ 1.5-2.0), and right CEA (2012), s/p recent AZAEL 02/18/24 with residual moderate MR, moderate TR, suspected thrombus adjacent to posterior MV leaflet (for which his Eliquis 2.5 mg bid was switched to Xarelto), post op Afib and amaurosis fugax of the left eye for which he underwent left carotid stenting 03/06/24. He presented yesterday from outpatient echo lab at [facility] to ER due for generalized weakness and SANTILLAN. Home medications Xarelto, Metoprolol Succinate, Statin, Zetia, Farxiga and Lasix. He completed 325 mg ASA and Plavix course for 4 weeks. AC was held while on DAPT and started on Xarelto on 03/29/24 (for suspected LV thrombus) and his Plavix was d/renate. His lasix was also increased to 40 mg BID. Currently denies chest pain or palpitations. On admission he was found to be anemic with drop in his H and H. Was given iron. Denies melena. His NT Pro BNP [id number]. CXR: left pleural effusions. He was tested +Guaiac on admission PAST MEDICAL HISTORY 09/03/2022: Carotid stenosis, asymptomatic, bilateral No date: Chronic back pain Comment: stenosis of the back 09/03/2022: Chronic combined systolic and diastolic congestive heart failure ([facility]) No date: Dyslipidemia No date: GERD (gastroesophageal reflux disease) No date: Heart failure, acute systolic ([facility]) No date: Hypertension No date: Hypothyroid No date: Myocardial infarct, old No date: Occlusion and stenosis of carotid artery without mention of cerebral infarction 2020: Prostate cancer ([facility]) 11/17/2012: PVD (peripheral vascular disease) ([facility]) 09/03/2022: Stroke (cerebrum) ([facility]) No date: Systolic heart failure ([facility]) No date: Thyroid disorder 04/26/2023: 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 kidney disease, unspecified CKD stage, unspecified whether snf insulin use ([facility]) 04/28/2012: Ventricular tachycardia ([facility]) PAST SURGICAL HISTORY 2012: ANGIOGRAPHY, EXT CAROTID; Right 05/01/2012: CABG (3) VEIN GRAFTS AND ARTERIAL GRAFT(S) Comment: Median sternotomy, coronary artery bypass grafting with in situ left internal thoracic artery to the LAD, and reverse saphenous vein graft to the posterior descending artery and obtuse marginal. No date: HEART CATHETERIZATION FAMILY HISTORY Problem Relation Age of Onset other (atrial fibrillation) Mother other (CHF) Mother other (Other) Mother at age 96 Coronary Artery Disease Father Heart Attack Father fatal [place] at age 77 Ischemic Heart Disease Brother CABGx6 first at age 72 No Known Problems Maternal Grandmother No Known Problems Maternal Grandfather No Known Problems Paternal Grandmother No Known Problems Paternal Grandfather No Known Problems Daughter No Known Problems Daughter No Known Problems Daughter other (Other) Other paternal cousin at age 50 of [place] Social History Tobacco Use Smoking status: Former Current packs/day: 0.00 Average packs/day: 1 pack/day for 10.0 years (10.0 ttl pk-yrs) Types: Cigarettes, Pipe Start date: 04/28/1972 Quit date: 04/28/1982 Years since quittin.0 Passive exposure: Never Smokeless tobacco: Never Vaping Use Vaping status: Never Used Substance Use Topics Alcohol use: Yes Comment: rarely Drug use: Never Prior to Admission Medications Prescriptions Last Dose Informant Patient Reported? Taking? Cholecalciferol, Vitamin D3, 25 mcg (1,000 unit) cap 05/05/2024 Yes Yes Sig: Take 1,000 Units by mouth as needed. NUTRITION ASSOCIATE THYROID 15 mg tablet 05/05/2024 Yes Yes Sig: Take 15 mg by mouth once daily. aspirin 325 mg tablet 05/05/2024 No Yes Sig: Take 1 tablet by mouth once daily. atorvastatin (LIPITOR) 40 mg tablet 05/05/2024 Yes Yes Sig: Take 40 mg by mouth daily at bedtime. clopidogrel (PLAVIX) 75 mg tablet No No Sig: Take 1 tablet by mouth once daily for 26 doses. Patient should start on March 06, 2024. dapagliflozin propanediol (FARXIGA) 10 mg tablet 05/05/2024 Yes Yes Sig: Take 10 mg by mouth daily with breakfast. ezetimibe (ZETIA) 10 mg tablet 05/05/2024 Yes Yes Sig: Take 10 mg by (more content not included)... [facility] CONSULT HNO ID: [id number] Author: CARLOS HOUSER APRN.CNP Service: Gastroenterology Author Type: Nurse Practitioner Type: Consults Filed: 05/07/2024 16:20 Note Text: CONSULT: GASTROENTEROLOGY SERVICE SERVICE DATE: 05/07/2024 SERVICE TIME: 8:27 AM REASON FOR CONSULT: concern for GIB REQUESTING PHYSICIAN: Dr. Heredia PRIMARY CARE PHYSICIAN: Samm Thompson MD Subjective Mr. Antonio is a 84 year old male with complicated cardiac hx PMH/PSHx ICM s/p ICD (2018), CHFrEF (EF 17%), severe MR s/p MV clip 02/18/2024, s/p left carotid stenting 03/09/24, LV thrombus 03/29/24 (on Xarelto), CAD s/p CABG 2011, stroke 2020 s/p tPA without deficits, COPD not on oxygen, CKD stage 3, right CEA 2012 who presented to ED 05/06 for generalized weakness and fatigue. Patient reports having OP ECHO done at [place] yesterday, noted to be more weak, family encouraged ED evaluation. Labs revealed lower then normal hgb and TAJ showed crimson colored stool. Reports having iron infusions in recent past. Shortness of breath worse with activity. Reports loss of appetite d/t food seems to have no taste. Pt denies hx of GIB. Denies fever, chills, chest pain, abdominal pain, nausea, vomiting, dysphagia, odynophagia, dyspepsia, melena, hematochezia, constipation, diarrhea, or significant weight changes. On AC, last dose 05/05, denies NSAID use. Denies nicotine or etoh use. Denies family hx of GI issues or malignancy. Previous GI work up: 02/17/2024 esophagram doneffor pre procedural evaluation prior to MERRITT NO ESOPHAGEAL OBSTRUCTION OR NARROWING. ESOPHAGEAL DYSMOTILITY. 11/19/2023 KUB: Single view of the abdomen was obtained. Bowel gas pattern is nonspecific and nonobstructive. There is no free air. Lung bases appear clear. Impression/Recommendations Mr. Antonio is a 84 year old male with complicated cardiac hx PMH/PSHx ICM s/p ICD (2018), CHFrEF (EF 17%), severe MR s/p MV clip 02/18/2024, s/p left carotid stenting 03/09/24, LV thrombus 03/29/24 (on Xarelto), CAD s/p CABG 2011, stroke 2020 s/p tPA without deficits, COPD not on oxygen, CKD stage 3, right CEA 2012 who presented to ED 05/06 for generalized weakness and fatigue. #Acute blood loss anemia (POA: Yes) #Acute on chronic anemia, macrocytic #Generalized weakness (POA: Yes) #New left pleural effusion with adjacent atelectasis on CXR -LSO: FULL CODE -? 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 He was found to have A-fib after procedure and he was started on Eliquis 2.5 mg BID for AC, s/p left carotid stenting 03/06/24-put on 325 mg asa and Plavix for 4 weeks; 03/29 which showed LV thrombus-restarted on Xarelto. -afebrile, HR WNL, BP soft/WNL; ABD EXAM: soft, non-tender, BS +; ED TAJ revealed crimson colored stool -On xarelto, last dose 05/05 per patient -Hgb baseline ~ 11-12 -LABS: WBC: 6.32, Hgb: 8.4, plt: 160; BUN/creat: 42/2.09, Na+:140, K+:3.6; proBNP: 25.374; repeat iron studies WNL PLAN: -okay for CLD for now until plans finalized -PPI IV BID -Monitor/trend CBC, transfuse prn for hgb < 7 ; monitor/document stools -Cards c/s, appreciate recs/clearance for endoscopy - +/- Endoscopic evaluation TBD, pt high risk for procedures, pt/family hesitant to pursue until repeat ECHO finalized, and would like to monitor hgb trend off ASA -D/w primary team regarding heparin gtt initiation and observation in interim as pt high risk for stroke given LV thrombus -Will follow along #Hyperlipidemia (POA: Yes) #Carotid stenosis, 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, left (POA: Yes) #Coronary artery disease involving coronary bypass graft of [place] heart without angina pectoris (POA: Yes) #Systolic heart failure (HCC) (POA: Yes) #S/P CABG (coronary artery bypass graft) (POA: Yes) #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 kidney disease, unspecified CKD stage, unspecified whether snf insulin use (HCC) (POA: Yes) #Stage 3b chronic kidney disease (HCC) (POA: Yes) #Severe mitral regurgitation (POA: Yes) #Atrial fibrillation (HCC) (POA: Yes) #LV (left ventricular) mural thrombus (POA: Yes) Case to be d/w staff: Dr. Benitez for final recs Addendum: 1200 Case reviewed with staff, okay with heparin gtt and monitoring CBC/overt bleeding. Ongoing medical optimization, scopes if decided upon likely not until Saturday. Addendum: 1645 Pt seen at bedside w/ Dr. Benitez, case reviewed w/ anesthesia/Cards will monitor while on heparin gtt, +/- endoscopies Saturday. Updates given to daughters on telephone. Okay for diet now, orders placed. FUNCTIONAL STATUS: Independent PAST MEDICAL HISTORY 09/03/2022: Carotid stenosis, asymptomatic, bilateral No date: Chronic back pain Comment: stenosis of the back 09/03/2022: Chronic 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) No date: Dyslipidemia No date: GERD (gastroesophageal reflux disease) No date: Heart failure, acute systolic (more content not included)... Normal [facility] Ferritin [facility] 2023 Ferritin [Mass/Vol] 804.6 ng/mL High 30.3-565.7 [facility] Comment on above: Order Comment: Dylan olvera Type: BLOOD SPECIMEN Ordering Facility: [facility] Address: [address] [place] [address] Performed By: #### L [id number] #### [facility] CLIA [id number] [address] [place] [address] [place] [employer] and Iron binding capaci [facility] 05-07-2024 Iron [Mass/Vol] 56 ug/dL Normal 41-186 [facility] Comment on above: Order Comment: Dylan olvera Type: BLOOD SPECIMEN Ordering Facility: [facility] Address: [address] [place] [address] Performed By: #### L [id number] #### [facility] CLIA [id number] [place] [address] [place] Iron binding capacity [Mass/Vol] 239 ug/dL Normal 232-386 [facility] Comment on above: Order Comment: Speci men Type: BLOOD SPECIMEN Ordering Facility: [facility] Address: [address] [place] [address] Performed By: #### L [id number] #### [facility] CLIA [id number] [place] [address] [place] Iron/TIBC [Molar ratio] 23.4 % Normal 15.0-57.0 [facility] Comment on above: Order Comment: Dylan olvera Type: BLOOD SPECIMEN Ordering Facility: [facility] Address: [address] [place] [address] Performed By: #### L [id number] #### [facility] CLIA [id number] [address] [place] [id number] [place] Magnesium SerPl-mCncon 05-07 Magnesium [Mass/Vol] 2.4 mg/dL High 1.7-2.3 [facility] Comment on above: Order Comment: Dylan olvera Type: BLOOD SPECIMEN Ordering Facility: [facility] Address: [address] [place] [address] Performed By: #### L [id number] #### [facility] CLIA [id number] [address] [place] [id number] [place] PT panel Coag (PPP)on 2023 INR Coag (PPP) [Relative time] 1.4 {INR} High 0.9-1.3 [facility] Comment on above: Order Comment: Dylan olvera Type: BLOOD SPECIMEN Ordering Facility: [facility] Address: [address] [place] [address] Result Comment: Loulou min K Antagonist (VKA) Therapeutic Range: INR 2 to 3 (Target INR of 2.5) Note: For patients treated with VKA drugs, such as warfarin, the [employer] [place] 2012 Guideline recommends a therapeutic INR range of 2 to 3 (target INR of 2.5). This recommendation includes high-risk patients with antiphospholipid syndrome with previous arterial or venous thromboembolism, current-generation mechanical or bioprosthetic aortic heart valve replacement. Note: Patients with mechanical aortic valve replacement and additional risk factors for thromboembolic events (atrial fibrillation, previous thromboembolism, LV dysfunction, hypercoagulable conditions) or an older generation mechanical AVR (i.e., ball in-Cage) or any mechanical MVR should have a INR therapeutic range of 2.5 to 3.5 (target INR of 3). Olamide GH, et al. Chest 2012, 141:7S-47S Javier RA, et al. [facility] 2017, 70: 252-289 Performed By: #### 3 4528-0, PTTAC #### [facility] CLIA [id number] [address] [place] [address] [place] [facility] PT Coag (PPP) [Time] 14.9 s High 9.7-13.0 [facility] Comment on above: Order Comment: Speci men Type: BLOOD SPECIMEN Ordering Facility: [facility] Address: [address] [place] [address] Performed By: #### 3 4528-0, PTTAC #### [facility] CLIA [id number] [address] [place] [id number] [place] [facility] PTT, ANTICOAGULANT THERAPYon 05-07-2024 aPTT Coag (PPP) [Time] 76.0 s High 23.0-32.4 [facility] Comment on above: Order Comment: Speci men Type: BLOOD SPECIMEN Ordering Facility: [facility] Address: [address] [place], [place] [address] [address] Performed By: #### 3 4528-0, PTTAC #### [facility] CLIA [id number] [address] [place] [address] [facility] aPTT Coag (PPP) [Time] 30.8 s Normal 23.0-32.4 [facility] Comment on above: Order Comment: Speci men Type: BLOOD SPECIMEN Ordering Facility: [facility] Address: [address] [place] [address] Performed By: #### 3 4528-0, PTTAC #### [facility] CLIA [id number] [address] [place] [address] [facility] THERAPY NTon 05-07-2024 THERAPY NT HNO ID: [id number] Author: KODMAN, JENNY, OTR/L Service: Occupational Therapy Author Type: Occupational Therapist Type: Therapy (PT/OT/Speech/Resp) Filed: 05/07/2024 15:43 Note Text: Occupational Therapy consult received. Chart reviewed and spoke with TIMA Walker who reports no acute care OT needs are identified at this time. Current nursing and PT 6 clicks score is 24. Plan to d/c OT consult. [facility] THERAPY NT HNO ID: [id number] Author: ADRIANA BLACKMAN, PT, DPT Service: Physical Therapy Author Type: Physical Therapist Type: Therapy (PT/OT/Speech/Resp) Filed: 05/07/2024 14:14 Note Text: Physical Therapy Evaluation Summary SERVICE DATE: 05/07/2024 SERVICE TIME: 1111 to 1204 ROOM: [place] [address] PT 6 Clicks Score: 24 DISCHARGE RECOMMENDATIONS Outpatient PT Recommended Discharge Disposition Comments: Recommend continued outpt cardiac rehab. pt may pursue outpt PT for core/generalized strengthening, as well as further gait training once DC'd from cardiac rehab. Rec continued ambulation multiple times per day both during remainder of hospital stay, as well as at DC. Rec use of WW at [place]. Pt may need to consider alternative living situation, given concerns from family about living situation. Rec SW/CM for concerns regarding living situation. No further inpt PT needs, PT will sign off. Recommended Discharge Equipment: No equipment needs anticipated ASSESSMENT Response to Therapy Interventions: Good Participation in Activities, Low Activity Tolerance PRECAUTIONS CURRENT HOSPITAL COURSE Admitted 05/06/24 for generalized weakness and SANTILLAN. Pt had repeat ECHO just prior to admission, came to ED due to EOB/weakness. Of note, pt had mitral valve clip done 02/18/24 and underwent left carotid stenting 03/06/24. In ED, Hgb was 8.8, down from baseline of 11-12. PT/OT consults. Cards, GI consult. Relevant Past Medical History: Acute blood loss anemia, HLD, remote smoker, COPD, ADRIAN s/p R CEA, CVA, CKD, CAD s/p CABG, iCM HFrEF (17%) s/p dcPPM-ICD, and sev fMR HOME LIVING Patient Lives With: Self/Alone Assistance Available: PRN Entry To Home: Stairs Number Of Stairs Into Home: 2 Number Of Stairs To Bed/Bath: 0 Tub/Shower Type: tub/shower Laundry: pt completes Equipment Owned: Walker- Wheeled, Wheelchair- Manual, Grab Bars- Shower, Commode- Raised, Lift Chair, Hand Held Shower, Cane PRIOR FUNCTIONAL LEVEL Within Functional Limits Pt reports IND, no falls - reports last week he sat down too hard on steps, 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 Reports distance pt able to ambulate has been decreasing due to need to sit down to rest - pt unable to report if this is due to weakness, back pain, or SANTILLAN or a combination. Family reporting pt unable to care for self - home reported to be in deplorable conditions SUBJECTIVE I need to get my nutrition, sleep, and depression under control or else I will never be able to get stronger. Dtr also voicing concerns re: living arrangements, reporting concern for pt taking care of self/home in addition to concerns re: nutrition, depression, sleeping. PT educated that pt may need to allow family to assist him and/or in finding new home arrangements to better allow recovery. Concerns relayed to SW/CM at end of session. THERAPY DIAGNOSIS Reduced mobility-other TREATMENT INTERVENTIONS Evaluation, Gait Training (04035), Therapeutic Activity (86972) Timed Code Treatment (minutes): 38 Skilled Treatment Time (minutes): 53 TRAINING AND EDUCATION PROVIDED Assistive Device Use, Benefits of In-Hospital Mobility, Discharge Planning, Disease Specific Education, Energy Conservation, Exercise Program, Expected Functional Level, Falls Prevention, Gait Pattern, Reduction of Deviations, Home Safety, Home Set-up/Modifications, Positioning, Precautions/Restrictions, Role of Physical Therapy, Standing Balance, Transfers THERAPEUTIC SKILLS USED Activity Dosing, Cues for Sequencing/Proper Technique for Activity, Cuing Tactile, Cuing Verbal, Cuing Visual, Assessment of Tolerance Including Vitals Response to Activity, Movement Facilitation, Postural Alignment Correction, Teach-Back for Education FUNCTIONAL STATUS Bed Mobility Supine To Sit: Independent Sit to Supine: Independent Transfers Sit To Stand: Independent Stand To Sit: Independent Bed to Chair Independent Bed To Chair Transfer Type: Stepping Gait Modified Independent, Additional Information Pt self-limiting distance this date, reports he would like to return to chair due to weakness in hips. no s/s of SANTILLAN, pts SP02 was checked by [facility]NA shortly following ambulation trial - SP02 at 98%. Pt reports I could have gone further, but I didn't want to push it too far. Pt reports feeling more secure and stable when ambulating with WW. therefore, use of WW is recommended at [place]. Gait Device: Wheeled Walker General Deviations/Observations: Dolores decreased, Narrow Base of Support, Step length decreased Gait Distance (feet): 100' Stairs GOALS Patient will demonstrate progress with functional mobility to allow safe discharge to home with available support and/or physical assistance. Rehab Potential: Good PLAN PT Frequency: Discontinue Therapy Services Reasons Therapy Services Discontinued: Goals met Treatment Interventions: Education, Energy Conservation Training, Strengthening, Functi (more content not included)... Normal [facility] CBC W Auto Differential pane l (Bld)on 05-06-2024 Basophils (Bld) [#/Vol] 0.04 10*3/uL Normal <0.11 [facility] Comment on above: Order Comment: Speci men Type: BLOOD SPECIMEN Ordering Facility: [facility] Address: [address] [place] [address] Performed By: #### P TTAC #### [facility] CLIA [id number] [address] [place] [address] [place] Basophils/100 WBC (Bld) 0.6 % Normal [facility] Comment on above: Order Comment: Speci men Type: BLOOD SPECIMEN Ordering Facility: [facility] Address: [address] [place] [address] Performed By: #### P TTAC #### [facility] CLIA [id number] [address] [place] [address] [place] Differential cell count method Nom (Bld) Auto Normal [facility] Comment on above: Order Comment: Speci men Type: BLOOD SPECIMEN Ordering Facility: [facility] Address: [address] [place] [address] Performed By: #### P TTAC #### [facility] CLIA [id number] [id number] [place] [id number] [place] Eosinophils (Bld) [#/Vol] 0.07 10*3/uL Normal <0.46 [facility] Comment on above: Order Comment: Speci men Type: BLOOD SPECIMEN Ordering Facility: [facility] Address: [address] [place] [address] Performed By: #### P TTAC #### [facility] IA [id number] [address] [place] [address] [place] Eosinophils/100 WBC (Bld) 1.1 % Normal [facility] Comment on above: Order Comment: Speci men Type: BLOOD SPECIMEN Ordering Facility: [facility] Address: [address] [place] [address] Performed By: #### P TTAC #### [facility] IA [id number] [address] [place] [address] [place] Erythrocyte distribution width (RBC) [Ratio] 22.2 % High 11.5-15.0 [facility] Comment on above: Order Comment: Speci men Type: BLOOD SPECIMEN Ordering Facility: [facility] Address: [address] [place] [address] Performed By: #### P TTAC #### [facility] [id number] [address] [place] [address] [place] Hematocrit (Bld) [Volume fraction] 29.6 % Low 39.0-51.0 [facility] Comment on above: Order Comment: Speci men Type: BLOOD SPECIMEN Ordering Facility: [facility] Address: [address] [place] [address] Performed By: #### P TTAC #### [facility] [id number] [address] [place] [address] [place] Hemoglobin (Bld) [Mass/Vol] 8.8 g/dL Low 13.0-17.0 [facility] Comment on above: Order Comment: Speci men Type: BLOOD SPECIMEN Ordering Facility: [facility] Address: [address] [place] [address] Performed By: #### P TTAC #### [facility] [id number] [address] [place] [place] [address] [place] Immature granulocytes (Bld) [#/Vol] 0.03 10*3/uL Normal <0.10 [facility] Comment on above: Order Comment: Speci men Type: BLOOD SPECIMEN Ordering Facility: [facility] Address: [address] [place] [address] Performed By: #### P TTAC #### [facility] [place] [id number] [address] [place] Immature granulocytes/100 WBC (Bld) 0.5 % Normal [facility] Comment on above: Order Comment: Speci men Type: BLOOD SPECIMEN Ordering Facility: [facility] Address: [address] [place] [address] Performed By: #### P TTAC #### [facility] IA [id number] [address] [place] [address] [place] Lymphocytes (Bld) [#/Vol] 1.05 10*3/uL Normal 1.00-4.00 [facility] Comment on above: Order Comment: Speci men Type: BLOOD SPECIMEN Ordering Facility: [facility] Address: [address] [place] [address] Performed By: #### P TTAC #### [facility] IA [id number] [address] [place] [place] [address] [place] Lymphocytes/100 WBC (Bld) 16.1 % Normal [facility] Comment on above: Order Comment: Speci men Type: BLOOD SPECIMEN Ordering Facility: [facility] Address: [address] [place] [address] Performed By: #### P TTAC #### [facility] IA [id number] [address] [place] [id number] [place] MCH (RBC) [Entitic mass] 30.0 pg Normal 26.0-34.0 [facility] Comment on above: Order Comment: Speci men Type: BLOOD SPECIMEN Ordering Facility: [facility] Address: [address] [place] [address] Performed By: #### P TTAC #### [facility] IA [id number] [address] [place] [address] [place] MCHC (RBC) [Mass/Vol] 29.7 g/dL Low 30.5-36.0 [facility] Comment on above: Order Comment: Speci men Type: BLOOD SPECIMEN Ordering Facility: [facility] Address: [address] [place] [address] Performed By: #### P TTAC #### [facility] IA [id number] [address] [place] [address] [place] MCV (RBC) [Entitic vol] 101.0 fL High 80.0-100.0 [facility] Comment on above: Order Comment: Speci men Type: BLOOD SPECIMEN Ordering Facility: [facility] Address: [address] [place] [address] Performed By: #### P TTAC #### [facility] IA [id number] [address] [place] [address] [place] Monocytes (Bld) [#/Vol] 0.56 10*3/uL Normal <0.87 [facility] Comment on above: Order Comment: Speci men Type: BLOOD SPECIMEN Ordering Facility: [facility] Address: [address] [place] [address] Performed By: #### P TTAC #### [facility] IA [id number] [address] [place] [id number] [place] Monocytes/100 WBC (Bld) 8.6 % Normal [facility] Comment on above: Order Comment: Speci men Type: BLOOD SPECIMEN Ordering Facility: [facility] Address: [address] [place] [address] Performed By: #### P TTAC #### [facility] IA [id number] [address] [place] [address] [place] Neutrophils (Bld) [#/Vol] 4.77 10*3/uL Normal 1.45-7.50 [facility] Comment on above: Order Comment: Speci men Type: BLOOD SPECIMEN Ordering Facility: [facility] Address: [address] [place] [address] Performed By: #### P TTAC #### [facility] IA [id number] [address] [place] [address] [place] Neutrophils/100 WBC (Bld) 73.1 % Normal [facility] Comment on above: Order Comment: Speci men Type: BLOOD SPECIMEN Ordering Facility: [facility] Address: [address] [place] [address] Performed By: #### P TTAC #### [facility] IA [id number] [address] [place] [address] [place] Nucleated RBC (Bld) [#/Vol] 0.02 10*3/uL High <0.01 [facility] Comment on above: Order Comment: Speci men Type: BLOOD SPECIMEN Ordering Facility: [facility] Address: [address] [place] [address] Performed By: #### P TTAC #### [facility] IA [id number] [address] [place] Nucleated RBC/100 WBC (Bld) [Ratio] 0.3 /100 WBC Normal [facility] Comment on above: Order Comment: Speci men Type: BLOOD SPECIMEN Ordering Facility: [facility] Address: [address] [place] [address] Performed By: #### P TTAC #### [facility] IA [id number] [address] [place] [address] [place] Platelet mean volume (Bld) [Entitic vol] 10.8 fL Normal 9.0-12.7 [facility] Comment on above: Order Comment: Speci men Type: BLOOD SPECIMEN Ordering Facility: [facility] Address: [address] [place] [address] Performed By: #### P TTAC #### [facility] IA [id number] [address] [place] [address] [place] Platelets (Bld) [#/Vol] 194 10*3/uL Normal 150-400 [facility] Comment on above: Order Comment: Speci men Type: BLOOD SPECIMEN Ordering Facility: [facility] Address: [address] [place] [address] Performed By: #### P TTAC #### [facility] IA [id number] [address] [place] [address] [facility] [place] RBC (Bld) [#/Vol] 2.93 10*6/uL Low 4.20-6.00 [facility] Comment on above: Order Comment: Speci men Type: BLOOD SPECIMEN Ordering Facility: [facility] Address: [address] [place] [address] Performed By: #### P TTAC #### [facility] CLIA [id number] [address] [facility] [place] [address] [place] WBC (Bld) [#/Vol] 6.52 10*3/uL Normal 3.70-11.00 [facility] Comment on above: Order Comment: Speci men Type: BLOOD SPECIMEN Ordering Facility: [facility] Address: [address] [place] [address] Performed By: #### P TTAC #### [facility] CLIA [id number] [address] [place] [address] [place] CNPNon 05-06-2024 CNPN Normal [facility] Comprehensive metabolic 2000 panelon 05-06-2024 Albumin [Mass/Vol] 3.6 g/dL Low 3.9-4.9 [facility] Comment on above: Order Comment: Speci men Type: BLOOD SPECIMEN Ordering Facility: [facility] Address: [address] [place] [address] Performed By: #### 2 4323-8, 34940-1, 01952-5 #### [facility] CLIA [id number] [address] [place] [address] [place] ALP [Catalytic activity/Vol] 92 U/L Normal 38-113 [facility] Comment on above: Order Comment: Speci men Type: BLOOD SPECIMEN Ordering Facility: [facility] Address: [address] [place] [address] Performed By: #### 2 4323-8, 77409-4, 28832-7 #### [facility] CLIA [id number] [address] [place] [address] [place] ALT [Catalytic activity/Vol] 12 U/L Normal 10-54 [facility] Comment on above: Order Comment: Speci men Type: BLOOD SPECIMEN Ordering Facility: [facility] Address: [address] [place] [address] Performed By: #### 2 4323-8, 21709-8, 08571-4 #### [facility] CLIA [id number] [address] [place] [address] [place] Anion gap [Moles/Vol] 13 mmol/L Normal 8-15 [facility] Comment on above: Order Comment: Speci men Type: BLOOD SPECIMEN Ordering Facility: [facility] Address: [address] [place] [address] Performed By: #### 2 4323-8, 92102-0, 21536-0 #### [facility] CLIA [id number] [address] [place] [address] [place] AST [Catalytic activity/Vol] 24 U/L Normal 14-40 [facility] Comment on above: Order Comment: Speci men Type: BLOOD SPECIMEN Ordering Facility: [facility] Address: [address] [place] [address] Performed By: #### 2 4323-8, 54116-1, 76762-0 #### [facility] CLIA [id number] [address] [place] [address] [place] Bilirubin [Mass/Vol] 0.8 mg/dL Normal 0.2-1.3 [facility] Comment on above: Order Comment: Speci men Type: BLOOD SPECIMEN Ordering Facility: [facility] Address: [address] [place] [address] Performed By: #### 2 4323-8, 91438-5, 98285-9 #### [facility] CLIA [id number] [address] [place] [address] [place] Calcium [Mass/Vol] 9.1 mg/dL Normal 8.5-10.2 [facility] Comment on above: Order Comment: Speci men Type: BLOOD SPECIMEN Ordering Facility: [facility] Address: [address] [place] [address] Performed By: #### 2 4323-8, 16288-4, 29041-4 #### [facility] CLIA [id number] [address] [facility] [place] [address] [place] Chloride [Moles/Vol] 103 mmol/L Normal 98-107 [facility] Comment on above: Order Comment: Speci men Type: BLOOD SPECIMEN Ordering Facility: [facility] Address: [address] [place] [address] Performed By: #### 2 4323-8, 94811-3, 44608-2 #### [facility] CLIA [id number] [address] [place] [address] [place] CO2 [Moles/Vol] 24 mmol/L Normal 22-30 [facility] Comment on above: Order Comment: Rozi men Type: BLOOD SPECIMEN Ordering Facility: [facility] Address: [address] [place] [address] Performed By: #### 2 4323-8, 92170-4, 08452-5 #### [facility] CLIA [id number] [address] [place] [address] [place] Creatinine [Mass/Vol] 2.07 mg/dL High 0.73-1.22 [facility] Comment on above: Order Comment: Speci men Type: BLOOD SPECIMEN Ordering Facility: [facility] Address: [address] [place] [address] Performed By: #### 2 4323-8, 10521-5, 23158-9 #### [facility] CLIA [id number] [address] [facility] [place] [address] [place] Creatinine and Glomerular filtration rate.predicted panel (S/P/Bld) 31 mL/min/1.73m??? Low >=60 [facility] Comment on above: Order Comment: Speci men Type: BLOOD SPECIMEN Ordering Facility: [facility] Address: [address] [place] [address] Result Comment: Etta mated Glomerular Filtration Rate [...] actual GFR. Performed By: #### 2 4323-8, 63577-8, 61471-7 #### [facility] CLIA [id number] [address] [place] [address] [place] [place] Glucose [Mass/Vol] 105 mg/dL High 74-99 [facility] Comment on above: Order Comment: Dylan olvera Type: BLOOD SPECIMEN Ordering Facility: [facility] Address: [address] [place] [address] Result Comment: The [place] Diabetes Association (ADA) provides guidance for cutoff [...] Standards of Medical Care in Diabetes 2016, [place] [employer]. Diabetes Care. 2016.39(Suppl 1). Performed By: #### 2 4323-8, 14306-4, 08329-8 #### [facility] CLIA [id number] [address] [place] [address] [place] Potassium [Moles/Vol] 4.1 mmol/L Normal 3.7-5.1 [facility] Comment on above: Order Comment: Dylan olvera Type: BLOOD SPECIMEN Ordering Facility: [facility] Address: [address] [place] [address] Performed By: #### 2 4323-8, 54252-5, 41133-3 #### [facility] CLIA [id number] [address] [place] [address] [place] Protein [Mass/Vol] 6.2 g/dL Low 6.3-8.0 [facility] Comment on above: Order Comment: Speci men Type: BLOOD SPECIMEN Ordering Facility: [facility] Address: [address] [place] [address] Performed By: #### 2 4323-8, 13454-8, 02381-1 #### [facility] CLIA [id number] [address] [place] [address] [place] Sodium [Moles/Vol] 140 mmol/L Normal 136-144 [facility] Comment on above: Order Comment: Speci men Type: BLOOD SPECIMEN Ordering Facility: [facility] Address: [address] [place], [place] [address] Performed By: #### 2 4323-8, 57074-3, 19733-3 #### [facility] CLIA [id number] [address] [place] [address] [place] Urea nitrogen [Mass/Vol] 40 mg/dL High 9-24 [facility] Comment on above: Order Comment: Speci men Type: BLOOD SPECIMEN Ordering Facility: [facility] Address: [address] [place], [place] [address] Performed By: #### 2 4323-8, 04200-5, 10480-0 #### [facility] CLIA [id number] [address] [place] [address] [place] ECG COMPLETEon 05-06-2024 ECG COMPLETE Ventricular Rate : 6 9 BPM Atrial Rate : 0 BPM QRS Duration : 126 ms Q-T Interval : 429 ms QTC Calculation(Bazett) : 460 ms Calculated R [place] : -14 degrees Calculated T [place] : 158 degrees Atrial fibrillation Paired ventricular premature complexes Nonspecific intraventricular conduction delay Repol abnrm suggests ischemia, lateral leads Abnormal ECG 1829 NO STEMI Confirmed by DO OSWALD JOSEPH ([id number]), multimedia editor MULU GARDUNO ([id number]) on 05/07/2024 8:20:07 AM NAME : JOSÉ MIGUEL ANTONIO PID : [id number] : 1940 Gender : Male Race : ORD : [id number] Procedure Date : May 06 2024 18:28:15 Edit Date : May 07 2024 08:20:08 Diagnosis: Atrial fibrillation Paired ventricular premature complexes Nonspecific intraventricular conduction delay Repol abnrm suggests ischemia, lateral leads Abnormal ECG 1829 NO STEMI Confirmed by DO OSWALD JOSEPH ([id number]), multimedia editor MULU GARDUNO ([id number]) on 05/07/2024 8:20:07 AM Test Reason : Chest Pain Location : 302 : ED AVED-3 Overread By : DO OSWALD JOSEPH Edited By : MULU GARDUNO Referred By : , Acquired by : [id number], [facility] ED NOTEon 05-06-2024 ED NOTE HNO ID: [id number] Author: ENRRIQUE PARSONS RN Service: eHospital Author Type: Registered Nurse Type: ED Notes Filed: 05/06/2024 19:13 Note Text: Report given to INOCENTE Andrade. [facility] ED NOTE HNO ID: [id number] Author: ARTEMIO PALMA RN Service: Emergency Medicine Author Type: Registered Nurse Type: ED Notes Filed: 05/06/2024 19:10 Note Text: Report taken from Enrrique Castellano RN [facility] ED NOTE HNO ID: [id number] Author: DEVIKA WILEY RN Service: ? Author Type: Registered Nurse Type: ED Notes Filed: 05/06/2024 16:42 Note Text: Patient presents with c/o SANTILLAN increasing x several weeks. 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 Patient very pale in triage, takes plavix, ASA, and xarelto. Denies CP, denies SOB at rest. VSS in triage, AANDOx4. [facility] ED PROV NOTEon 05-06-2024 ED PROV NOTE HNO ID: [id number] Author: JANET OSWALD DO Service: Emergency Medicine Author Type: Physician Type: ED Provider Notes Filed: 05/06/2024 19:22 Note Text: ED Provider Note Patient Name: José Miguel Antonio Jr. : 1940 SERVICE DATE: 05/06/24 History Patient presents with: Shortness of Breath: SANTILLAN increasing x weeks Patient presents with dyspnea on exertion. PAST MEDICAL HISTORY 09/03/2022: Carotid stenosis, asymptomatic, bilateral No date: Chronic back pain Comment: stenosis of the back 09/03/2022: Chronic 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) No date: Dyslipidemia No date: GERD (gastroesophageal reflux disease) No date: Heart failure, acute systolic ([facility]) No date: Hypertension No date: Hypothyroid No date: Myocardial infarct, old No date: Occlusion and stenosis of carotid artery without mention of cerebral infarction 2020: Prostate cancer ([facility]) 11/17/2012: PVD (peripheral vascular disease) ([facility]) 09/03/2022: Stroke (cerebrum) ([facility]) No date: Systolic heart failure ([facility]) No date: Thyroid disorder 04/26/2023: 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 kidney disease, unspecified CKD stage, unspecified whether snf insulin use ([facility]) 04/28/2012: Ventricular tachycardia ([facility]) PAST SURGICAL HISTORY 2012: ANGIOGRAPHY, EXT CAROTID; Right 05/01/2012: CABG (3) VEIN GRAFTS AND ARTERIAL GRAFT(S) Comment: Median sternotomy, coronary artery bypass grafting with in situ left internal thoracic artery to the LAD, and reverse saphenous vein graft to the posterior descending artery and obtuse marginal. No date: HEART CATHETERIZATION FAMILY HISTORY Problem Relation Age of Onset - other (atrial fibrillation) Mother - other (CHF) Mother - other (Other) Mother at age 96 - Coronary Artery Disease Father - Heart Attack Father fatal [place] at age 77 - Ischemic Heart Disease Brother CABGx6 first at age 72 - No Known Problems Maternal Grandmother - No Known Problems Maternal Grandfather - No Known Problems Paternal Grandmother - No Known Problems Paternal Grandfather - No Known Problems Daughter - No Known Problems Daughter - No Known Problems Daughter - other (Other) Other paternal cousin at age 50 of [place] Social History Tobacco Use - Smoking status: Former Current packs/day: 0.00 Average packs/day: 1 pack/day for 10.0 years (10.0 ttl pk-yrs) Types: Cigarettes, Pipe Start date: 04/28/1972 Quit date: 04/28/1982 Years since quittin.0 Passive exposure: Never - Smokeless tobacco: Never Vaping Use - Vaping status: Never Used Substance and Sexual Activity - Alcohol use: Yes Comment: rarely - Drug use: Never - Sexual activity: Not on file ALLERGIES Allergen Reactions - Latex Rash - Adhesive Tape (Keyanna* Rash Review of Systems Constitutional: Positive for appetite change and fatigue. Respiratory: Negative for chest tightness. Dyspnea with exertion. No resting shortness of breath. Cardiovascular: Negative for chest pain. Gastrointestinal: Negative for abdominal pain, diarrhea and vomiting. Genitourinary: Negative. Musculoskeletal: Negative. Skin: Negative. Neurological: Negative. Psychiatric/Behavioral: Positive for dysphoric mood. Physical Exam Vitals [05/06/24 1639] BP Pulse Temp Temp src Resp SpO2 Weight Height 118/78 76 36.6 ?C (97.8 ?F) Oral 19 99 % 79.8 kg (176 lb) -- Physical Exam Vitals and nursing note reviewed. Constitutional: General: He is not in acute distress. Appearance: He is well-developed. He is not diaphoretic. HENT: Head: Normocephalic and atraumatic. Nose: Nose normal. Eyes: General: No scleral icterus. Right eye: No discharge. Left eye: No discharge. Conjunctiva/sclera: Conjunctivae normal. Cardiovascular: Rate and Rhythm: Normal rate. Rhythm irregular. Pulmonary: Effort: Pulmonary effort is normal. No respiratory distress. Breath sounds: Rales present. No rhonchi. Comments: Decreased air exchange and rales left lung base. Abdominal: Tenderness: There is no abdominal tenderness. Genitourinary: Rectum: Guaiac result positive. Musculoskeletal: Cervical back: Neck supple. Right lower leg: Edema present. Left lower leg: Edema present. Skin: General: Skin is warm and dry. Capillary Refill: Capillary refill takes less than 2 seconds. Findings: No rash. Neurological: General: No focal deficit present. Mental Status: He is alert and oriented to person, place, and time. Sensory: No sensory deficit. Motor: No weakness. Psychiatric: Behavior: Behavior normal. Thought Content: Thought content normal. Judgment: Judgment normal. Diagnostic Testing ED Labs Ordered and Reviewed COMPREHENSIVE METABOLIC PANEL - Abnormal; Notable for the following components: Result Value Ref Range Protein, Total 6.2 (*) 6.3 - 8.0 g/dL Albumin 3.6 (*) 3.9 - 4.9 g/dL Glucose 105 (*) 74 - 99 mg/dL BUN 40 (*) (more content not included)... Normal [facility] ED Triage Noteon 05-06-2024 ED Triage Note HNO ID: [id number] Author: JENNY ALARCON MD Service: Emergency Medicine Author Type: Physician Type: ED Triage Notes Filed: 05/06/2024 16:45 Note Text: ED INTAKE NOTE Patient Name: José Miguel Antonio Jr. Service Date: 05/06/24 BRIEF HPI: This is a 84 year old male who presents to the ED with: SANTILLAN x weeks BRIEF EXAM: NAD Awake and Alert Pallor INITIAL WORKUP AND DECISION MAKING: Orders Placed This Encounter XR CHEST 2V FRONTAL/LAT COMPREHENSIVE METABOLIC PANEL (BMP+LFT) MAGNESIUM BLOOD High Sensitivity Troponin T with Reflex for ED Chest Pain PROBNP N-TERMINAL CBC + AUTO DIFF ECG COMPLETE Provider examination performed via virtual platform with assistance from bedside clinician. SIGNATURE: Jenny Alarcon MD Normal [facility] HIGH SENSITIVITY TROPONIN T (INITIAL)on 05-06-2024 Troponin T.cardiac High sensitivity method [Mass/Vol] 45 ng/L High <12 [facility] Comment on above: Order Comment: Rozi may Type: BLOOD SPECIMEN Ordering Facility: [facility] Address: [address] [place] [address] Performed By: #### L [id number] #### [facility] CLIA [id number] [place] [address] [place] HIGH SENSITIVITY TROPONIN T (SECOND)on 05-06-2024 Troponin T.cardiac High sensitivity method [Mass/Vol] 43 ng/L High <[address] [place] [address] Comment on above: Order Comment: Dylan olvera Type: BLOOD SPECIMEN Ordering Facility: [facility] Address: [address] [place] [address] Performed By: #### 3 4528-0, PTTAC #### [facility] CLIA [id number] [address] [place] [address] [place] [facility] HIGH SENSITIVITY TROPONIN T (THIRD) 3 HRS AFTER INITIALon 05-06-2024 Troponin T.cardiac High sensitivity method [Mass/Vol] 45 ng/L High <[address] [place] [address] Comment on above: Order Comment: Dylan olvera Type: BLOOD SPECIMEN Ordering Facility: [facility] Address: [address] [place] [address] Performed By: #### L [id number] #### [facility] CLIA [id number] [address] [place] [address] [place] HISTORY PHYSICALon 08-21-202 4 HISTORY PHYSICAL HNO ID: [id number] Author: CHERYL LEES MD Service: Hospital Medicine Author Type: Physician Type: H&P Filed: 05/06/2024 23:41 Note Text: DEPARTMENT OF HOSPITAL MEDICINE HISTORY AND PHYSICAL EXAM SERVICE DATE: 05/06/2024 SERVICE TIME: 6:57 PM Primary Care Physician: Samm Thompson MD NIGHT AND WEEKEND COVERAGE: Days: [phone], please contact via HEROZ Secure Message Nights: [phone] 3rd floor: please page [facility] Hospitalist night cover #[phone] 4W: please page [facility] Hospitalist night cover #[phone] 5th floor: please page [facility] Hospitalist night cover #[phone] SDU (18:00 - 19:00): Please page #[phone] SDU (19:00 - 07:00): Please call E-Hospitalist at [phone] Subjective CHIEF COMPLAINT: generalized weakness and SANTILLAN HPI: This is a 84 year old male with hx of ICM s/p ICD 2018, CHFrEF (EF 17%), severe MR s/p MV clip 02/18/2024, s/p left carotid stenting 03/09/24, 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 Pt had mitral valve clip done 02/17. He was found to have A-fib after procedure and he was started on Eliquis 2.5 mg BID for AC given his age and renal function. He was then admitted in February again due to amaurosis fugax of left eye due to known severe left proximal ICA stenosis and underwent left carotid stenting 03/06/24. He was put on 325 mg asa and Plavix for 4 weeks. AC was held while on DAPT. Pt had repeat echo done 03/29 which showed LV thrombus. He was restarted on Xarelto. He remained on 325 mg asa daily and Plavix was d/renate. His lasix was also increased to 40 mg BID. Pt c/o worsening SANTILLAN, fatigue and generalized weakness the past few weeks. He gets SANTILLAN walking from bedroom to bathroom and he developed bilateral leg swelling. He denies chest pain. He is compliance with his medications. He denies melena, BRRPR or hematuria. He denies hx of GIB. Never had EGD in the past. In the ED, VSS. No leukocytosis Hb 8.8, baseline 11-12 Electrolytes are OK BUN/Cr 40/2.07, around baseline HST 45> 43 ProBNP 96940 CXR: left pleural effusions (new compares to 02/2024) Pt has crimson colored stool that is guaiac positive. PAST MEDICAL HISTORY 09/03/2022: Carotid stenosis, asymptomatic, bilateral No date: Chronic back pain Comment: stenosis of the back 09/03/2022: Chronic combined systolic and diastolic congestive heart failure ([facility]) No date: Dyslipidemia No date: GERD (gastroesophageal reflux disease) No date: Heart failure, acute systolic ([facility]) No date: Hypertension No date: Hypothyroid No date: Myocardial infarct, old No date: Occlusion and stenosis of carotid artery without mention of cerebral infarction 2020: Prostate cancer ([facility]) 11/17/2012: PVD (peripheral vascular disease) ([facility]) 09/03/2022: Stroke (cerebrum) ([facility]) No date: Systolic heart failure ([facility]) No date: Thyroid disorder 04/26/2023: 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 kidney disease, unspecified CKD stage, unspecified whether snf insulin use ([facility]) 04/28/2012: Ventricular tachycardia ([facility]) PAST SURGICAL HISTORY 2012: ANGIOGRAPHY, EXT CAROTID; Right 05/01/2012: CABG (3) VEIN GRAFTS AND ARTERIAL GRAFT(S) Comment: Median sternotomy, coronary artery bypass grafting with in situ left internal thoracic artery to the LAD, and reverse saphenous vein graft to the posterior descending artery and obtuse marginal. No date: HEART CATHETERIZATION FAMILY HISTORY Problem Relation Age of Onset other (atrial fibrillation) Mother other (CHF) Mother other (Other) Mother at age 96 Coronary Artery Disease Father Heart Attack Father fatal [place] at age 77 Ischemic Heart Disease Brother CABGx6 first at age 72 No Known Problems Maternal Grandmother No Known Problems Maternal Grandfather No Known Problems Paternal Grandmother No Known Problems Paternal Grandfather No Known Problems Daughter No Known Problems Daughter No Known Problems Daughter other (Other) Other paternal cousin at age 50 of [place] Social History Tobacco Use Smoking status: Former Current packs/day: 0.00 Average packs/day: 1 pack/day for 10.0 years (10.0 ttl pk-yrs) Types: Cigarettes, Pipe Start date: 04/28/1972 Quit date: 04/28/1982 Years since quittin.0 Passive exposure: Never Smokeless tobacco: Never Vaping Use Vaping status: Never Used Substance Use Topics Alcohol use: Yes Comment: rarely Drug use: Never PRIOR TO ADMISSION MEDICATIONS: rivaroxaban (XARELTO) 15 mg tablet, Take 15 mg by mouth once daily., Disp: , Rfl: , 05/05/2024 aspirin 325 mg tablet, Take 1 tablet by mouth once daily., Disp: 30 tablet, Rfl: 11, 05/05/2024 furosemide (LASIX) 40 mg tablet, Take 1 tablet by mouth once daily., Disp: 90 tablet, Rfl: 3, 05/05/2024 metoprolol succinate ER (more content not included)... Normal [facility] Magnesium [facility] 05-06 Magnesium [Mass/Vol] 2.5 mg/dL High 1.7-2.3 [facility] Comment on above: Order Comment: Speci [facility] Type: BLOOD SPECIMEN Ordering Facility: [facility] Address: [address] [place] [address] Performed By: #### 2 4323-8, 79609-1, 27257-1 #### [facility] CLIA [id number] [address] [place] [address] [place] NT-proBNP [facility] 05-06 Natriuretic peptide.B prohormone N-Terminal [Mass/Vol] 73042 pg/mL High <450 [facility] Comment on above: Order Comment: [facility] Type: BLOOD SPECIMEN Ordering Facility: [facility] Address: [address] [place] [address] Performed By: #### 2 4323-8, 79736-9, 99633-4 #### [facility] CLIA [id number] [place] [address] [place] XR CHEST 2V FRONTAL/LATon XR CHEST 2V FRONTAL/LAT * * *Final Report* * * DATE OF EXAM: May 06 2024 5:00PM VHX 5291 - XR CHEST 2V FRONTAL/LAT / PROCEDURE REASON: Shortness of breath * * * * Physician Interpretation * * * * EXAMINATION: CHEST RADIOGRAPH (2 VIEW FRONTAL and LATERAL) CLINICAL HISTORY: Shortness of breath MQ: XC2_6 EXAM DATE/TIME: 05/06/2024 5:00 PM COMPARISON: 02/15/2024 RESULT: Lines, tubes, and devices: Left chest wall AICD. Lungs and pleura: New left pleural effusion with adjacent opacities. No pneumothorax. Cardiomediastinal silhouette: The cardiomediastinal silhouette is mildly enlarged, unchanged. Bones and soft tissues: Status post median sternotomy with normally aligned sternal wires. IMPRESSION: New left pleural effusion with adjacent atelectasis Metal Drill Operator: LUZ MARIA Transcribe Date/Time: May 06 2024 5:37P Dictated by : ROSS FULTON DO This examination was interpreted and the report reviewed and electronically signed by: ROSS FULTON DO on May 06 2024 5:38PM EST [id number] Normal [facility] CNPTOUTREACHon 04-30-2024 CNPTOUTREA Normal [facility] CNPTOUTREACHon 04-29-2024 [facility] CNCOon 04-14-2024 CNCO Letter Text Normal [facility] Basic metabolic 2000 panelon 04-06-2024 Anion gap [Moles/Vol] 7 mmol/L Low 8-15 [facility] Comment on above: Order Comment: Speci men Type: BLOOD SPECIMENOrdering Facility: [facility] Address: [address] [place] [address] Performed By: #### 2 4321-2 ####[facility] [id number] [place] [address] Calcium [Mass/Vol] 9.9 mg/dL Normal 8.5-10.2 [facility] Comment on above: Order Comment: Speci men Type: BLOOD SPECIMENOrdering Facility: [facility] Address: [address] [place] [address] Performed By: #### 2 4321-2 ####[facility] [id number] [place] [address] Chloride [Moles/Vol] 106 mmol/L Normal 98-107 [facility] Comment on above: Order Comment: Speci men Type: BLOOD SPECIMENOrdering Facility: [facility] Address: [address] [place] [address] Performed By: #### 2 4321-2 ####[facility] [id number] [place] [address] CO2 [Moles/Vol] 27 mmol/L Normal 22-30 [facility] Comment on above: Order Comment: Speci men Type: BLOOD SPECIMENOrdering Facility: [facility] Address: [address] [place] [address] Performed By: #### 2 4321-2 ####[facility] [id number] [place] [address] Creatinine [Mass/Vol] 2.02 mg/dL High 0.73-1.22 [facility] Comment on above: Order Comment: Speci men Type: BLOOD SPECIMENOrdering Facility: [facility] Address: [address] [place] [address] Performed By: #### 2 4321-2 ####[facility] [id number] [place] [address] Creatinine and Glomerular filtration rate.predicted panel (S/P/Bld) 32 mL/min/1.73m??? Low >=60 [facility] Comment on above: Order Comment: Speci men Type: BLOOD SPECIMENOrdering Facility: [facility] Address: [address] [place] [address] Result Comment: Etta mated Glomerular Filtration Rate [...] reflect actual GFR. Performed By: #### 2 4321-2 ####[facility] LABIA [id number] [place] [address] Glucose [Mass/Vol] 106 mg/dL High 74-99 [facility] Comment on above: Order Comment: Speci men Type: BLOOD SPECIMENOrdering Facility: [facility] Address: [address] [place], [place] [address] Result Comment: The [place] Diabetes [employer] (ADA) provides guidance for cutoff values for fasting glucose and random glucose. The ADA defines fasting as no caloric intake for at least 8 hours. Fasting plasma glucose results between 100 to 125 mg/dL indicate increased risk for diabetes (prediabetes).Fasting plasma glucose results greater than or equal to 126 mg/dL meet the criteria for diagnosis of diabetes. In the absence of unequivocal hyperglycemia, results should be confirmed by repeat testing. In a patient with classic symptoms of hyperglycemia or hyperglycemic crisis, random plasma glucose results greater than or equal to 200 mg/dL meet the criteria for diagnosis of diabetes.Reference: Standards of Medical Care in Diabetes 2016, [place] [employer]. Diabetes Care. 2016.39(Suppl 1). Performed By: #### 2 4321-2 ####[facility]IA [id number] [place] [address] Potassium [Moles/Vol] 4.6 mmol/L Normal 3.7-5.1 [facility] Comment on above: Order Comment: Speci men Type: BLOOD SPECIMENOrdering Facility: [facility] Address: [address] [place] [address] Performed By: #### 2 4321-2 ####[facility] LABIA [id number] [place] [address] Sodium [Moles/Vol] 140 mmol/L Normal 136-144 [facility] Comment on above: Order Comment: Speci men Type: BLOOD SPECIMENOrdering Facility: [facility] Address: [address] [place] [address] Performed By: #### 2 4321-2 ####[facility] LABCLIA [id number] [place] [address] Urea nitrogen [Mass/Vol] 53 mg/dL High 9-24 [facility] Comment on above: Order Comment: Speci men Type: BLOOD SPECIMENOrdering Facility: [facility] Address: [address] [place] [address] Performed By: #### 2 4321-2 ####[facility] LABCLIA [id number] [place] [address] NT-proBNP [facility] 04-06 Natriuretic peptide.B prohormone N-Terminal [Mass/Vol] 38447 pg/mL High <450 [facility] Comment on above: Order Comment: Speci men Type: BLOOD SPECIMENOrdering Facility: [facility] Address: [address] [place] [address] Performed By: #### 3 3762-6 ####[facility] LABCLIA [id number] [place] [id number] [place] CNPNon 04-03-2024 CNPN Normal [facility] CNPNon 04-01-2024 CNPN Normal [facility] CNOVon 03-31-2024 CNOV Normal [facility] Basic metabolic 2000 panelon 03-30-2024 Anion gap [Moles/Vol] 12 mmol/L Normal 8-15 [facility] Comment on above: Order Comment: Speci men Type: BLOOD SPECIMENOrdering Facility: [facility] Address: [address] [place] [address] Performed By: #### 2 4321-2 ####[facility] LABCLIA [id number] [address] [address] [place] Calcium [Mass/Vol] 9.8 mg/dL Normal 8.5-10.2 [facility] Comment on above: Order Comment: Speci men Type: BLOOD SPECIMENOrdering Facility: [facility] Address: [address] [place] [address] Performed By: #### 2 4321-2 ####[facility] LABCLIA [id number] [place] [address] [place] Chloride [Moles/Vol] 103 mmol/L Normal 98-107 [facility] Comment on above: Order Comment: Speci men Type: BLOOD SPECIMENOrdering Facility: [facility] Address: [address] [place] [address] Performed By: #### 2 4321-2 ####[facility] LABCLIA [id number] [place] [address] [place] CO2 [Moles/Vol] 26 mmol/L Normal 22-30 [facility] Comment on above: Order Comment: Speci men Type: BLOOD SPECIMENOrdering Facility: [facility] Address: [address] [place] [address] Performed By: #### 2 4321-2 ####[facility] LABCLIA [id number] [place] [address] [place] Creatinine [Mass/Vol] 2.01 mg/dL High 0.73-1.22 [facility] Comment on above: Order Comment: Speci men Type: BLOOD SPECIMENOrdering Facility: [facility] Address: [address] [place] [address] Performed By: #### 2 4321-2 ####[facility] LABIA [id number] [place] [address] [place] Creatinine and Glomerular filtration rate.predicted panel (S/P/Bld) 33 mL/min/1.73m??? Low >=60 [facility] Comment on above: Order Comment: Speci men Type: BLOOD SPECIMENOrdering Facility: [facility] Address: [address] [place] [address] Result Comment: Etta mated Glomerular Filtration Rate [...] reflect actual GFR. Performed By: #### 2 4321-2 ####[facility] LABIA [id number] [place] [address] [place] Glucose [Mass/Vol] 93 mg/dL Normal 74-99 [facility] Comment on above: Order Comment: Dylan olvera Type: BLOOD SPECIMENOrdering Facility: [facility] Address: [address] [place] [address] Result Comment: The [place] [employer] (ADA) provides guidance for cutoff values for fasting glucose and random glucose. The ADA defines fasting as no caloric intake for at least 8 hours. Fasting plasma glucose results between 100 to 125 mg/dL indicate increased risk for diabetes (prediabetes).Fasting plasma glucose results greater than or equal to 126 mg/dL meet the criteria for diagnosis of diabetes. In the absence of unequivocal hyperglycemia, results should be confirmed by repeat testing. In a patient with classic symptoms of hyperglycemia or hyperglycemic crisis, random plasma glucose results greater than or equal to 200 mg/dL meet the criteria for diagnosis of diabetes.Reference: Standards of Medical Care in Diabetes 2016, [place] [employer]. Diabetes Care. 2016.39(Suppl 1). Performed By: #### 2 4321-2 ####[facility] LABIA [id number] [place] [address] [place] Potassium [Moles/Vol] 5.1 mmol/L Normal 3.7-5.1 [facility] Comment on above: Order Comment: Dylan olvera Type: BLOOD SPECIMENOrdering Facility: [facility] Address: [address] [place] [address] Performed By: #### 2 4321-2 ####[facility] LABIA [id number] [place] [address] [place] Sodium [Moles/Vol] 141 mmol/L Normal 136-144 [facility] Comment on above: Order Comment: Dylan olvera Type: BLOOD SPECIMENOrdering Facility: [facility] Address: [address] [place] [address] Performed By: #### 2 4321-2 ####[facility] LABCLIA [id number] [address] [address] [place] Urea nitrogen [Mass/Vol] 29 mg/dL High 9-24 [facility] Comment on above: Order Comment: Speci men Type: BLOOD SPECIMENOrdering Facility: [facility] Address: [address] [place], [place] [id number] Performed By: #### 2 4321-2 ####[facility] LABCLIA [id number] [address] [address] [place] CNOVon 03-30-2024 CNOV Normal [facility] CNPNon 03-30-2024 CNPN Normal [facility] ECG COMPLETEon 03-30-2024 ECG COMPLETE Normal [facility] Basic metabolic 2000 panelon 03-24-2024 Anion gap [Moles/Vol] 9 mmol/L Normal 8-15 [facility] Comment on above: Order Comment: Speci men Type: BLOOD SPECIMENOrdering Facility: [facility] Address: [address] [place] [address] Performed By: #### 2 4321-2 ####RASHAUNORBHARATHI [facility] LABIA [id number] [place] [address] Calcium [Mass/Vol] 10.0 mg/dL Normal 8.5-10.2 [facility] Comment on above: Order Comment: Speci men Type: BLOOD SPECIMENOrdering Facility: [facility] Address: [address] [place] [address] Performed By: #### 2 4321-2 ####[facility] LABIA [id number] [place] [address] Chloride [Moles/Vol] 104 mmol/L Normal 98-107 [facility] Comment on above: Order Comment: Speci men Type: BLOOD SPECIMENOrdering Facility: [facility] Address: [address] [place] [address] Performed By: #### 2 4321-2 ####[facility] LABCLIA [id number] [place] [address] CO2 [Moles/Vol] 28 mmol/L Normal 22-30 [facility] Comment on above: Order Comment: Speci men Type: BLOOD SPECIMENOrdering Facility: [facility] Address: [address] [place] [address] Performed By: #### 2 4321-2 ####[facility] LABCLIA [id number] [place] [address] Creatinine [Mass/Vol] 2.29 mg/dL High 0.73-1.22 [facility] Comment on above: Order Comment: Speci men Type: BLOOD SPECIMENOrdering Facility: [facility] Address: [address] [place] [address] Performed By: #### 2 4321-2 ####[facility] LABCLIA [id number] [place] [address] Creatinine and Glomerular filtration rate.predicted panel (S/P/Bld) 28 mL/min/1.73m??? Low >=60 [facility] Comment on above: Order Comment: Speci men Type: BLOOD SPECIMENOrdering Facility: [facility] Address: [address] [place] [address] Result Comment: Etta mated Glomerular Filtration Rate [...] reflect actual GFR. Performed By: #### 2 4321-2 ####[facility] LABCLIA [id number] [place] [address] Glucose [Mass/Vol] 109 mg/dL High 74-99 [facility] Comment on above: Order Comment: Speci men Type: BLOOD SPECIMENOrdering Facility: [facility] Address: [address] [place] [address] Result Comment: The [place] Diabetes [employer] (ADA) provides guidance for cutoff values for fasting glucose and random glucose. The ADA defines fasting as no caloric intake for at least 8 hours. Fasting plasma glucose results between 100 to 125 mg/dL indicate increased risk for diabetes (prediabetes).Fasting plasma glucose results greater than or equal to 126 mg/dL meet the criteria for diagnosis of diabetes. In the absence of unequivocal hyperglycemia, results should be confirmed by repeat testing. In a patient with classic symptoms of hyperglycemia or hyperglycemic crisis, random plasma glucose results greater than or equal to 200 mg/dL meet the criteria for diagnosis of diabetes.Reference: Standards of Medical Care in Diabetes 2016, [place] [employer]. Diabetes Care. 2016.39(Suppl 1). Performed By: #### 2 4321-2 ####[facility] LABCLIA [id number] [place] [address] Potassium [Moles/Vol] 4.7 mmol/L Normal 3.7-5.1 [facility] Comment on above: Order Comment: Speci men Type: BLOOD SPECIMENOrdering Facility: [facility] Address: [address] [place] [address] Performed By: #### 2 4321-2 ####[facility] LABCLIA [id number] [place] [address] Sodium [Moles/Vol] 141 mmol/L Normal 136-144 [facility] Comment on above: Order Comment: Speci men Type: BLOOD SPECIMENOrdering Facility: [facility] Address: [address] [place] [id number] Performed By: #### 2 1-2 ####[facility] LABCLIA [id number] [place] [address] Urea nitrogen [Mass/Vol] 31 mg/dL High 9-24 [facility] Comment on above: Order Comment: Speci men Type: BLOOD SPECIMENOrdering Facility: [facility] Address: [address] [id number] Performed By: #### 2 4321-2 ####[facility] LABCLIA [id number] [place] [address] CBC panel Auto (Bld)on 03-24 Erythrocyte distribution width (RBC) [Ratio] 18.8 % High 11.5-15.0 [facility] Comment on above: Order Comment: Speci men Type: BLOOD SPECIMENOrdering Facility: [facility] Address: [address] [place] [address] Performed By: #### 5 8410-2 ####[facility] LABCLIA [id number] [place] [address] Hematocrit (Bld) [Volume fraction] 37.7 % Low 39.0-51.0 [facility] Comment on above: Order Comment: Speci men Type: BLOOD SPECIMENOrdering Facility: [facility] Address: [address] [place] [address] Performed By: #### 5 8410-2 ####[facility] LABIA [id number] [place] [address] Hemoglobin (Bld) [Mass/Vol] 11.3 g/dL Low 13.0-17.0 [facility] Comment on above: Order Comment: Speci men Type: BLOOD SPECIMENOrdering Facility: [facility] Address: [address] [place] [address] Performed By: #### 5 8410-2 ####[facility] LABCLIA [id number] [place] [address] MCH (RBC) [Entitic mass] 27.6 pg Normal 26.0-34.0 [facility] Comment on above: Order Comment: Speci men Type: BLOOD SPECIMENOrdering Facility: [facility] Address: [address] [place] [address] Performed By: #### 5 8410-2 ####[facility] LABCLIA [id number] [place] [address] MCHC (RBC) [Mass/Vol] 30.0 g/dL Low 30.5-36.0 [facility] Comment on above: Order Comment: Speci men Type: BLOOD SPECIMENOrdering Facility: [facility] Address: [address] [place] [address] Performed By: #### 5 8410-2 ####[facility] LABCLIA [id number] [place] [address] MCV (RBC) [Entitic vol] 92.0 fL Normal 80.0-100.0 [facility] Comment on above: Order Comment: Speci men Type: BLOOD SPECIMENOrdering Facility: [facility] Address: [address] [place] [address] Performed By: #### 5 8410-2 ####[facility] LABCLIA [id number] [place] [address] Nucleated RBC (Bld) [#/Vol] 10*3/uL Normal <0.01 [facility] Comment on above: Order Comment: Speci men Type: BLOOD SPECIMENOrdering Facility: [facility] Address: [address] [place] [address] Performed By: #### 5 8410-2 ####[facility] LABIA [id number] [place] [address] Platelet mean volume (Bld) [Entitic vol] 9.4 fL Normal 9.0-12.7 [facility] Comment on above: Order Comment: Speci men Type: BLOOD SPECIMENOrdering Facility: [facility] Address: [address] [place] [address] Performed By: #### 5 8410-2 ####[facility] LABIA [id number] [place] [address] Platelets (Bld) [#/Vol] 162 10*3/uL Normal 150-400 [facility] Comment on above: Order Comment: Speci men Type: BLOOD SPECIMENOrdering Facility: [facility] Address: [address] [place] [address] Performed By: #### 5 8410-2 ####[facility] LABCLIA [id number] [place] [address] RBC (Bld) [#/Vol] 4.10 10*6/uL Low 4.20-6.00 [facility] Comment on above: Order Comment: Speci men Type: BLOOD SPECIMENOrdering Facility: [facility] Address: [address] [place] [address] Performed By: #### 5 8410-2 ####[facility] LABCLIA [id number] [place] [address] WBC (Bld) [#/Vol] 5.95 10*3/uL Normal 3.70-11.00 [facility] Comment on above: Order Comment: Speci men Type: BLOOD SPECIMENOrdering Facility: [facility] Address: [address] [place] [address] Performed By: #### 5 8410-2 ####[facility] LABCLIA [id number] [place] [address] PSA SerPl-mCncon 03-24-2024 Prostate specific Ag [Mass/Vol] ng/mL Normal <2.60 [facility] Comment on above: Order Comment: Speci men Type: BLOOD SPECIMENOrdering Facility: [facility] Address: [address] [place] [address] Result Comment: Tota l PSA test methodology used is the Electrochemiluminescence Immunoassay by [employer]. Total PSA values by differing methodologies cannot be interchanged. Performed By: #### 2 857-1 ####[facility] LABCLIA [id number] [facility] [place] [address] [place] TESTOSTERONE, FREE AND TOTAL on 03-24-2024 TESTOSTERONE, FREE, S 1.46 ng/dL Low 2.88-10.5 [facility] Comment on above: Order Comment: Speci men Type: BLOOD SPECIMENOrdering Facility: [facility] Address: [address] [place] [address] Result Comment: ---- ADDITIONAL INFORMATION This test was developed and its performance characteristicsdetermined by [facility] in a manner consistent with CLIArequirements. This test has not been cleared or approved bythe U.S. Food and Drug Administration. Performed By: #### T FTEST ####[facility] LABCLIA [id number] [place] [address] TESTOSTERONE, TOTAL, S 80 ng/dL Low 240-950 [facility] Comment on above: Order Comment: Speci men Type: BLOOD SPECIMENOrdering Facility: [facility] Address: [address] [place] [address] Result Comment: ---- ADDITIONAL INFORMATION Testing performed by Liquid Chromatography-Tandem MassSpectrometry (LC-MS/MS).This test was developed and its performance characteristicsdetermined by [facility] in a manner consistent with CLIArequirements. This test has not been cleared or approved bythe U.S. Food and Drug Administration.Test Performed by:[address] Director: Bambi Singh Ph.D.; CLIA# [id number] Performed By: #### T FTEST ####[facility] LABCLIA [id number] [place] [address] CNPTOUTREACHon 03-06-2024 CNPTOUTREACH Normal [facility] CASE MANAGEMon 03-05-2024 CASE MANAGEM Normal [facility] CNDSon 03-05-2024 CNDS Normal [facility] NURSING PROGon 03-05-2024 NURSING PROG Normal [facility] US CAROTID LTon 03-05-2024 US CAROTID LT Normal [facility] ANES POSTPROC EVALon 024 ANES POSTPROC EVAL Normal [facility] ANES PRE-OPon 03-04-2024 ANES PRE-OP Normal [facility] ARTERIAL BLOOD GASES WITH IO NIZED MAGNESIUMon 03-04-2024 Base excess Calc (Bld) [Moles/Vol] 0 mmol/L Normal 0-2 [facility] Comment on above: Order Comment: Speci men Type: ARTERIAL BLOOD SPECIMENOrdering Facility: [facility] Address: [address] [place] [address] Performed By: #### A LLMG ####[facility] LABCLIA [id number] [place] [address] [place] Calcium.ionized (Bld) [Mass/Vol] 1.29 mmol/L Normal 1.08-1.30 [facility] Comment on above: Order Comment: Speci men Type: ARTERIAL BLOOD SPECIMENOrdering Facility: [facility] Address: [address] [place] [address] Performed By: #### A LLMG ####[facility] LABCLIA [id number] [place] [address] [place] Calcium.ionized adjusted to pH 7.4 (BldA) [Moles/Vol] 1.25 mmol/L Normal 1.08-1.30 [facility] Comment on above: Order Comment: Speci men Type: ARTERIAL BLOOD SPECIMENOrdering Facility: [facility] Address: [address] [place] [address] Performed By: #### A LLMG ####[facility] LABCLIA [id number] [place] [address] [place] Carboxyhemoglobin (BldA) [Mass fraction] 1.4 % Normal 0.0-2.0 [facility] Comment on above: Order Comment: Speci men Type: ARTERIAL BLOOD SPECIMENOrdering Facility: [facility] Address: [address] [place] [address] Result Comment: Carb oxyhemoglobin Reference Range for Smokers: 2.0-8.0% Performed By: #### A LLMG ####[facility] LABCLIA [id number] [place] [address] [place] CO2 (Bld) [Partial pressure] 49 mm Hg High 36-46 [facility] Comment on above: Order Comment: Speci men Type: ARTERIAL BLOOD SPECIMENOrdering Facility: [facility] Address: [address] [place] [address] Performed By: #### A LLMG ####[facility] LABCLIA [id number] [place] [address] [place] CO2 adjusted to patient's actual temperature (Bld) [Partial pressure] 49 mmHg High 36-46 [facility] Comment on above: Order Comment: Speci men Type: ARTERIAL BLOOD SPECIMENOrdering Facility: [facility] Address: [address] [place] [address] Performed By: #### A LLMG ####[facility] LABCLIA [id number] [place] [address] [place] Glucose [Mass/Vol] 105 mg/dL Normal 60-105 [facility] Comment on above: Order Comment: Speci men Type: ARTERIAL BLOOD SPECIMENOrdering Facility: [facility] Address: [address] [place] [address] Performed By: #### A LLMG ####[facility] LABCLIA [id number] [place] [address] [place] HCO3 (Bld) [Moles/Vol] 26 mmol/L Normal 22-26 [facility] Comment on above: Order Comment: Speci men Type: ARTERIAL BLOOD SPECIMENOrdering Facility: [facility] Address: [address] [place] [address] Performed By: #### A LLMG ####[facility] LABCLIA [id number] [place] [address] [place] Hematocrit (Bld) [Volume fraction] 36.8 % Low 39.0-51.0 [facility] Comment on above: Order Comment: Speci men Type: ARTERIAL BLOOD SPECIMENOrdering Facility: [facility] Address: [address] [place], [place] [id number] Performed By: #### A LLMG ####[facility] LABCLIA [id number] [place] [address] [place] Hemoglobin (Bld) [Mass/Vol] 11.9 g/dL Low 13.0-17.0 [facility] Comment on above: Order Comment: Speci men Type: ARTERIAL BLOOD SPECIMENOrdering Facility: [facility] Address: [address] [place] [address] Performed By: #### A LLMG ####[facility] LABIA [id number] [place] [address] [place] Lactate [Moles/Vol] 0.7 mmol/L Normal 0.5-2.2 [facility] Comment on above: Order Comment: Speci men Type: ARTERIAL BLOOD SPECIMENOrdering Facility: [facility] Address: [address] [place] [address] Performed By: #### A LLMG ####[facility] LABIA [id number] [place] [address] [place] Magnesium [Moles/Vol] 0.65 mmol/L High 0.45-0.60 [facility] Comment on above: Order Comment: Speci men Type: ARTERIAL BLOOD SPECIMENOrdering Facility: [facility] Address: [address] [place] [address] Performed By: #### A LLMG ####[facility] LABIA [id number] [place] [address] [place] Methemoglobin (Bld) [Mass fraction] 0.8 % Normal 0.0-1.5 [facility] Comment on above: Order Comment: Speci men Type: ARTERIAL BLOOD SPECIMENOrdering Facility: [facility] Address: [address] [place] [address] Performed By: #### A LLMG ####[facility] LABIA [id number] [address] [id number] [address] [place] Oxygen (Bld) [Partial pressure] 129 mm Hg High 85-95 [facility] Comment on above: Order Comment: Speci men Type: ARTERIAL BLOOD SPECIMENOrdering Facility: [facility] Address: [address] [place], [place] [address] Performed By: #### A LLMG ####[facility] LABCLIA [id number] [place] [id number] [place] Oxygen adjusted to patient's actual temperature (Bld) [Partial pressure] 129 mmHg High 85-95 [facility] Comment on above: Order Comment: Speci men Type: ARTERIAL BLOOD SPECIMENOrdering Facility: [facility] Address: [address] [place] [address] Performed By: #### A LLMG ####[facility] LABCLIA [id number] [place] [address] [place] Oxyhemoglobin (BldA) [Mass fraction] 97 % Normal 95-98 [facility] Comment on above: Order Comment: Speci men Type: ARTERIAL BLOOD SPECIMENOrdering Facility: [facility] Address: [address] [place] [address] Performed By: #### A LLMG ####[facility] LABCLIA [id number] [place] [id number] [place] pH (Bld) 7.34 [pH] Low 7.35-7.45 [facility] Comment on above: Order Comment: Speci men Type: ARTERIAL BLOOD SPECIMENOrdering Facility: [facility] Address: [address] [place] [address] Performed By: #### A LLMG ####[facility] LABCLIA [id number] [place] [address] [place] pH adjusted to patient's actual temperature (Bld) 7.34 Low 7.35-7.45 [facility] Comment on above: Order Comment: Speci men Type: ARTERIAL BLOOD SPECIMENOrdering Facility: [facility] Address: [address] [place] [address] Performed By: #### A LLMG ####[facility] LABCLIA [id number] [place] [address] [place] Potassium [Moles/Vol] 3.9 mmol/L Normal 3.5-5.0 [facility] Comment on above: Order Comment: Speci men Type: ARTERIAL BLOOD SPECIMENOrdering Facility: [facility] Address: [address] [place] [address] Performed By: #### A LLMG ####[facility] LABIA [id number] [place] [address] [place] Sodium [Moles/Vol] 137 mmol/L Normal 136-144 [facility] Comment on above: Order Comment: Speci men Type: ARTERIAL BLOOD SPECIMENOrdering Facility: [facility] Address: [address] [place] [address] Performed By: #### A LLMG ####[facility] LABIA [id number] [place] [address] [place] ASPIRIN/CLOPIDOGREL RESISTAN CEon 03-04-2024 Platelet aggregation ADP induced High dose (PRP) [Rel units/Vol] 17 % Max Low 65-93 [facility] Comment on above: Order Comment: Speci men Type: BLOOD SPECIMENOrdering Facility: [facility] Address: [address] [place] [address] Performed By: #### A SPCLP ####[facility] LABIA [id number] [place] [address] [place] Platelet aggregation arachidonate induced 500 ug/mL (PRP) [Rel units/Vol] 22 % Max Low 75-100 [facility] Comment on above: Order Comment: Speci men Type: BLOOD SPECIMENOrdering Facility: [facility] Address: [address] [place] [address] Performed By: #### A SPCLP ####[facility] LABCLIA [id number] [place] [address] [place] BRIEF OP NOTon 03-04-2024 BRIEF OP NOT Normal [facility] CASE MANAGEMon 03-04-2024 CASE MANAGEM Normal [facility] CBC panel Auto (Bld)on 03-04 Erythrocyte distribution width (RBC) [Ratio] 18.7 % High 11.5-15.0 [facility] Comment on above: Order Comment: Speci men Type: BLOOD SPECIMENOrdering Facility: [facility] Address: [address] [place] [address] Performed By: #### 5 8410-2 ####[facility] LABCLIA [id number] [place] [address] [place] Hematocrit (Bld) [Volume fraction] 39.7 % Normal 39.0-51.0 [facility] Comment on above: Order Comment: Speci men Type: BLOOD SPECIMENOrdering Facility: [facility] Address: [address] [place] [address] Performed By: #### 5 8410-2 ####[facility] LABCLIA [id number] [place] [address] [place] Hemoglobin (Bld) [Mass/Vol] 12.3 g/dL Low 13.0-17.0 [facility] Comment on above: Order Comment: Speci men Type: BLOOD SPECIMENOrdering Facility: [facility] Address: [address] [place] [address] Performed By: #### 5 8410-2 ####[facility] LABCLIA [id number] [place] [address] [place] MCH (RBC) [Entitic mass] 27.5 pg Normal 26.0-34.0 [facility] Comment on above: Order Comment: Speci men Type: BLOOD SPECIMENOrdering Facility: [facility] Address: [address] [place] [address] Performed By: #### 5 8410-2 ####[facility] LABCLIA [id number] [place] [address] [place] MCHC (RBC) [Mass/Vol] 31.0 g/dL Normal 30.5-36.0 [facility] Comment on above: Order Comment: Speci men Type: BLOOD SPECIMENOrdering Facility: [facility] Address: [address] [place] [address] Performed By: #### 5 8410-2 ####[facility] LABIA [id number] [place] [address] [place] MCV (RBC) [Entitic vol] 88.8 fL Normal 80.0-100.0 [facility] Comment on above: Order Comment: Speci men Type: BLOOD SPECIMENOrdering Facility: [facility] Address: [address] [place] [address] Performed By: #### 5 8410-2 ####[facility] [id number] [place] [address] [place] Nucleated RBC (Bld) [#/Vol] 10*3/uL Normal <0.01 [facility] Comment on above: Order Comment: Speci men Type: BLOOD SPECIMENOrdering Facility: [facility] Address: [address] [place] [address] Performed By: #### 5 8410-2 ####[facility] [id number] [place] [address] [place] Platelet mean volume (Bld) [Entitic vol] 10.1 fL Normal 9.0-12.7 [facility] Comment on above: Order Comment: Speci men Type: BLOOD SPECIMENOrdering Facility: [facility] Address: [address] [place] [address] Performed By: #### 5 8410-2 ####[facility] LABIA [id number] [place] [address] [place] Platelets (Bld) [#/Vol] 168 10*3/uL Normal 150-400 [facility] Comment on above: Order Comment: Speci men Type: BLOOD SPECIMENOrdering Facility: [facility] Address: [address] [place] [address] Performed By: #### 5 8410-2 ####[facility] LABCLIA [id number] [place] [address] [place] RBC (Bld) [#/Vol] 4.47 10*6/uL Normal 4.20-6.00 [facility] Comment on above: Order Comment: Speci men Type: BLOOD SPECIMENOrdering Facility: [facility] Address: [address] [place] [address] Performed By: #### 5 8410-2 ####[facility] LABCLIA [id number] [place] [address] [place] WBC (Bld) [#/Vol] 5.30 10*3/uL Normal 3.70-11.00 [facility] Comment on above: Order Comment: Speci men Type: BLOOD SPECIMENOrdering Facility: [facility] Address: [address] [place] [address] Performed By: #### 5 8410-2 ####[facility] LABCLIA [id number] [place] [address] [place] IR CAROTIDon 03-04-2024 IR CAROTID Normal [facility] IR CAROTID CERVICALon 2023 IR CAROTID CERVICAL Normal [facility] IR NEUROVASCULAR STENTon IR NEUROVASCULAR STENT Normal [facility] MRI BRAIN WO IVCONon 024 MRI BRAIN WO IVCON Normal [facility] NURSING PROGon 03-04-2024 NURSING PROG Normal [facility] Renal function 2000 panelon 03-04-2024 Albumin [Mass/Vol] 3.3 g/dL Low 3.9-4.9 [facility] Comment on above: Order Comment: Speci men Type: BLOOD SPECIMENOrdering Facility: [facility] Address: [address] [place], [place] [address] Performed By: #### 2 4362-6 ####[facility] LABCLIA [id number] [place] [address] [place] Anion gap [Moles/Vol] 13 mmol/L Normal 8-15 [facility] Comment on above: Order Comment: Speci men Type: BLOOD SPECIMENOrdering Facility: [facility] Address: [address] [place] [address] Performed By: #### 2 4362-6 ####[facility] LABCLIA [id number] [place] [address] [place] Calcium [Mass/Vol] 9.6 mg/dL Normal 8.5-10.2 [facility] Comment on above: Order Comment: Speci men Type: BLOOD SPECIMENOrdering Facility: [facility] Address: [address] [place] [address] Performed By: #### 2 4362-6 ####[facility] LABCLIA [id number] [place] [address] [place] Chloride [Moles/Vol] 101 mmol/L Normal 98-107 [facility] Comment on above: Order Comment: Speci men Type: BLOOD SPECIMENOrdering Facility: [facility] Address: [address] [place] [address] Performed By: #### 2 4362-6 ####[facility] LABCLIA [id number] [place] [address] [place] CO2 [Moles/Vol] 23 mmol/L Normal 22-30 [facility] Comment on above: Order Comment: Speci men Type: BLOOD SPECIMENOrdering Facility: [facility] Address: [address] [place] [address] Performed By: #### 2 4362-6 ####[facility] LABCLIA [id number] [place] [address] [place] Creatinine [Mass/Vol] 1.91 mg/dL High 0.73-1.22 [facility] Comment on above: Order Comment: Dylan olvera Type: BLOOD SPECIMENOrdering Facility: [facility] Address: [address] [place] [address] Performed By: #### 2 4362-6 ####[facility] LABCLIA [id number] [place] [address] [place] Creatinine and Glomerular filtration rate.predicted panel (S/P/Bld) 35 mL/min/1.73m??? Low >=60 [facility] Comment on above: Order Comment: Dylan olvera Type: BLOOD SPECIMENOrdering Facility: [facility] Address: [address] [place] [address] Result Comment: Etta mated Glomerular Filtration Rate [...] reflect actual GFR. Performed By: #### 2 4362-6 ####[facility] LABCLIA [id number] [place] [address] [place] Glucose [Mass/Vol] 84 mg/dL Normal 74-99 [facility] Comment on above: Order Comment: Dylan olvera Type: BLOOD SPECIMENOrdering Facility: [facility] Address: [address] [place] [address] Result Comment: The [place] [employer] (ADA) provides guidance for cutoff values for fasting glucose and random glucose. The ADA defines fasting as no caloric intake for at least 8 hours. Fasting plasma glucose results between 100 to 125 mg/dL indicate increased risk for diabetes (prediabetes).Fasting plasma glucose results greater than or equal to 126 mg/dL meet the criteria for diagnosis of diabetes. In the absence of unequivocal hyperglycemia, results should be confirmed by repeat testing. In a patient with classic symptoms of hyperglycemia or hyperglycemic crisis, random plasma glucose results greater than or equal to 200 mg/dL meet the criteria for diagnosis of diabetes.Reference: Standards of Medical Care in Diabetes 2016, [place] [employer]. Diabetes Care. 2016.39(Suppl 1). Performed By: #### 2 4362-6 ####[facility] LABCLIA [id number] [address] [address] [place] Phosphate [Mass/Vol] 3.9 mg/dL Normal 2.7-4.8 [facility] Comment on above: Order Comment: Speci men Type: BLOOD SPECIMENOrdering Facility: [facility] Address: [address] [place] [address] Performed By: #### 2 4362-6 ####[facility] LABIA [id number] [place] [address] [place] Potassium [Moles/Vol] 4.0 mmol/L Normal 3.7-5.1 [facility] Comment on above: Order Comment: Speci men Type: BLOOD SPECIMENOrdering Facility: [facility] Address: [address] [place] [address] Performed By: #### 2 4362-6 ####[facility] LABIA [id number] [place] [address] [place] Sodium [Moles/Vol] 137 mmol/L Normal 136-144 [facility] Comment on above: Order Comment: Speci men Type: BLOOD SPECIMENOrdering Facility: [facility] Address: [address] [place] [address] Performed By: #### 2 4362-6 ####[facility] LABCLIA [id number] [place] [id number] [place] Urea nitrogen [Mass/Vol] 27 mg/dL High 9-24 [facility] Comment on above: Order Comment: Speci men Type: BLOOD SPECIMENOrdering Facility: [facility] Address: [address] [place] [address] Performed By: #### 2 4362-6 ####[facility] LABIA [id number] [place] [address] [place] ALLIED HEALTHon 03-03-2024 ALLIED HEALTH HNO ID: [id number] Author: FERMIN MIGUEL Chaplain Service: Spiritual Care Author Type: Type: Allied Health Filed: 03/03/2024 10:38 Note Text: Accepted anoint.,bless. Normal [facility] CASE MANAGEMon 03-03-2024 CASE MANAGEM Normal [facility] CBC panel Auto (Bld)on 03-03 Erythrocyte distribution width (RBC) [Ratio] 18.6 % High 11.5-15.0 [facility] Comment on above: Order Comment: Speci men Type: BLOOD SPECIMENOrdering Facility: [facility] Address: [address] [place] [address] Performed By: #### 5 8410-2 ####[facility] LABIA [id number] [place] [address] [place] Hematocrit (Bld) [Volume fraction] 39.3 % Normal 39.0-51.0 [facility] Comment on above: Order Comment: Speci men Type: BLOOD SPECIMENOrdering Facility: [facility] Address: [address] [place] [address] Performed By: #### 5 8410-2 ####[facility] LABIA [id number] [place] [address] [place] Hemoglobin (Bld) [Mass/Vol] 12.3 g/dL Low 13.0-17.0 [facility] Comment on above: Order Comment: Speci men Type: BLOOD SPECIMENOrdering Facility: [facility] Address: [address] [place] [address] Performed By: #### 5 8410-2 ####[facility] LABIA [id number] [place] [address] [place] MCH (RBC) [Entitic mass] 27.5 pg Normal 26.0-34.0 [facility] Comment on above: Order Comment: Speci men Type: BLOOD SPECIMENOrdering Facility: [facility] Address: [address] [place] [address] Performed By: #### 5 8410-2 ####[facility] LABIA [id number] [place] [address] [place] MCHC (RBC) [Mass/Vol] 31.3 g/dL Normal 30.5-36.0 [facility] Comment on above: Order Comment: Speci men Type: BLOOD SPECIMENOrdering Facility: [facility] Address: [address] [place] [address] Performed By: #### 5 8410-2 ####[facility] LABIA [id number] [place] [address] [place] MCV (RBC) [Entitic vol] 87.7 fL Normal 80.0-100.0 [facility] Comment on above: Order Comment: Speci men Type: BLOOD SPECIMENOrdering Facility: [facility] Address: [address] [place] [address] Performed By: #### 5 8410-2 ####[facility] LABIA [id number] [place] [address] [place] Nucleated RBC (Bld) [#/Vol] 10*3/uL Normal <0.01 [facility] Comment on above: Order Comment: Speci men Type: BLOOD SPECIMENOrdering Facility: [facility] Address: [address] [place] [address] Performed By: #### 5 8410-2 ####[facility] LABIA [id number] [place] [address] [place] Platelet mean volume (Bld) [Entitic vol] 10.3 fL Normal 9.0-12.7 [facility] Comment on above: Order Comment: Speci men Type: BLOOD SPECIMENOrdering Facility: [facility] Address: [address] [place] [address] Performed By: #### 5 8410-2 ####[facility] LABIA [id number] [place] [address] [place] Platelets (Bld) [#/Vol] 174 10*3/uL Normal 150-400 [facility] Comment on above: Order Comment: Speci men Type: BLOOD SPECIMENOrdering Facility: [facility] Address: [address] [place] [address] Performed By: #### 5 8410-2 ####[facility] [id number] [place] [address] [place] RBC (Bld) [#/Vol] 4.48 10*6/uL Normal 4.20-6.00 [facility] Comment on above: Order Comment: Speci men Type: BLOOD SPECIMENOrdering Facility: [facility] Address: [address] [place] [address] Performed By: #### 5 8410-2 ####[facility] [id number] [place] [address] [place] WBC (Bld) [#/Vol] 5.79 10*3/uL Normal 3.70-11.00 [facility] Comment on above: Order Comment: Speci men Type: BLOOD SPECIMENOrdering Facility: [facility] Address: [address] [place] [address] Performed By: #### 5 8410-2 ####[facility] [id number] [place] [address] [place] Fact Xa PPP-aCncon 4 Coagulation factor X activated act Coag Qn (PPP) 0.31 IU/mL High <0.10 [facility] Comment on above: Order Comment: Speci men Type: BLOOD SPECIMENOrdering Facility: [facility] Address: [address] [place] [address] Result Comment: The recommended therapeutic range for treatment of venous and arterial thrombosis with intravenous unfractionated heparin is an anti Xa activity level of 0.3 to 0.7 IU/mL. In patients with concomitant therapy with thrombolytic agents and/or platelet glycoprotein IIb/IIIa antagonists, the recommended therapeutic range is an anti Xa activity level of 0.2 to 0.5 IU/mL. Performed By: #### P TTAC, 3217-7 ####[facility] LABCLIA [id number] [place] [address] [place] Magnesium SerPl-mCncon 03-03 Magnesium [Mass/Vol] 2.3 mg/dL Normal 1.7-2.3 [facility] Comment on above: Order Comment: Speci men Type: BLOOD SPECIMENOrdering Facility: [facility] Address: [address] [place] [address] Performed By: #### 1 9123-9, 99333-7 ####[facility] [id number] [place] [address] [place] PTT, ANTICOAGULANT THERAPYon 03-03-2024 aPTT Coag (PPP) [Time] 57.8 s High 23.0-32.4 [facility] Comment on above: Order Comment: Speci men Type: BLOOD SPECIMENOrdering Facility: [facility] Address: [address] [place] [address] Performed By: #### P TTAC, 3217-7 ####[facility] [id number] [place] [address] [place] aPTT Coag (PPP) [Time] 37.1 s High 23.0-32.4 [facility] Comment on above: Order Comment: Speci men Type: BLOOD SPECIMENOrdering Facility: [facility] Address: [address] [place] [address] Performed By: #### P TTAC ####[facility] LABIA [id number] [place] [address] [place] aPTT Coag (PPP) [Time] 69.2 s High 23.0-32.4 [facility] Comment on above: Order Comment: Speci men Type: BLOOD SPECIMENOrdering Facility: [facility] Address: [address] [place] [address] Performed By: #### P TTA ####[facility] LABCLIA [id number] [place] [address] [place] Renal function 2000 panelon 03-03-2024 Albumin [Mass/Vol] 3.3 g/dL Low 3.9-4.9 [facility] Comment on above: Order Comment: Speci men Type: BLOOD SPECIMENOrdering Facility: [facility] Address: [address] [place] [address] Performed By: #### 1 9123-9, 03114-1 ####[facility] LABCLIA [id number] [place] [address] [place] Anion gap [Moles/Vol] 10 mmol/L Normal 8-15 [facility] Comment on above: Order Comment: Speci men Type: BLOOD SPECIMENOrdering Facility: [facility] Address: [address] [place] [address] Performed By: #### 1 9123-9, 10139-3 ####[facility] LABCLIA [id number] [place] [address] [place] Calcium [Mass/Vol] 9.6 mg/dL Normal 8.5-10.2 [facility] Comment on above: Order Comment: Speci men Type: BLOOD SPECIMENOrdering Facility: [facility] Address: [address] [place] [address] Performed By: #### 1 9123-9, 68734-1 ####[facility] LABCLIA [id number] [place] [address] [place] Chloride [Moles/Vol] 103 mmol/L Normal 98-107 [facility] Comment on above: Order Comment: Speci men Type: BLOOD SPECIMENOrdering Facility: [facility] Address: [address] [place] [address] Performed By: #### 1 9123-9, 13456-9 ####[facility] LABIA [id number] [place] [address] [place] CO2 [Moles/Vol] 25 mmol/L Normal 22-30 [facility] Comment on above: Order Comment: Speci men Type: BLOOD SPECIMENOrdering Facility: [facility] Address: [address] [place] [address] Performed By: #### 1 9123-9, 17611-3 ####[facility] LABIA [id number] [place] [address] [place] Creatinine [Mass/Vol] 1.93 mg/dL High 0.73-1.22 [facility] Comment on above: Order Comment: Speci men Type: BLOOD SPECIMENOrdering Facility: [facility] Address: [address] [place] [address] Performed By: #### 1 9123-9, 90747-7 ####[facility] [id number] [place] [address] [place] Creatinine and Glomerular filtration rate.predicted panel (S/P/Bld) 34 mL/min/1.73m??? Low >=60 [facility] Comment on above: Order Comment: Speci men Type: BLOOD SPECIMENOrdering Facility: [facility] Address: [address] [place] [address] Result Comment: Etta mated Glomerular Filtration Rate [...] accurately reflect actual GFR. Performed By: #### 1 9123-9, 05944-3 ####[facility] LABIA [id number] [place] [address] [place] Glucose [Mass/Vol] 91 mg/dL Normal 74-99 [facility] Comment on above: Order Comment: Speci men Type: BLOOD SPECIMENOrdering Facility: [facility] Address: [address] [place] [address] Result Comment: The [place] [employer] (ADA) provides guidance for cutoff values for fasting glucose and random glucose. The ADA defines fasting as no caloric intake for at least 8 hours. Fasting plasma glucose results between 100 to 125 mg/dL indicate increased risk for diabetes (prediabetes).Fasting plasma glucose results greater than or equal to 126 mg/dL meet the criteria for diagnosis of diabetes. In the absence of unequivocal hyperglycemia, results should be confirmed by repeat testing. In a patient with classic symptoms of hyperglycemia or hyperglycemic crisis, random plasma glucose results greater than or equal to 200 mg/dL meet the criteria for diagnosis of diabetes.Reference: Standards of Medical Care in Diabetes 2016, [place] [employer]. Diabetes Care. 2016.39(Suppl 1). Performed By: #### 1 9123-9, 22586-2 ####[facility] LABCLIA [id number] [place] [address] [place] Phosphate [Mass/Vol] 3.6 mg/dL Normal 2.7-4.8 [facility] Comment on above: Order Comment: Dylan olvera Type: BLOOD SPECIMENOrdering Facility: [facility] Address: [address] [place] [address] Performed By: #### 1 9123-9, 10891-2 ####[facility] LABCLIA [id number] [place] [address] [place] Potassium [Moles/Vol] 4.4 mmol/L Normal 3.7-5.1 [facility] Comment on above: Order Comment: Rozi men Type: BLOOD SPECIMENOrdering Facility: [facility] Address: [address] [place] [address] Performed By: #### 1 9123-9, 17398-9 ####[facility] LABCLIA [id number] [place] [address] [place] Sodium [Moles/Vol] 138 mmol/L Normal 136-144 [facility] Comment on above: Order Comment: Speci men Type: BLOOD SPECIMENOrdering Facility: [facility] Address: [address] [place] [id number] Performed By: #### 1 9123-9, 45589-2 ####[facility] LABCLIA [id number] [address] [address] [place] Urea nitrogen [Mass/Vol] 22 mg/dL Normal 9-24 [facility] Comment on above: Order Comment: Speci men Type: BLOOD SPECIMENOrdering Facility: [facility] Address: [address] [place] [address] Performed By: #### 1 9123-9, 93473-7 ####[facility] LABCLIA [id number] [place] [address] [place] TYPE + SCREENon 03-03-2024 ABO O Normal [facility] Comment on above: Order Comment: Speci men Type: BLOOD SPECIMENOrdering Facility: [facility] Address: [address] [place] [address] Performed By: #### T SCR ####[facility] [id number] [place] [address] [place] HISTORICAL AB SCR STATUS Negative Normal [facility] Comment on above: Order Comment: Speci men Type: BLOOD SPECIMENOrdering Facility: [facility] Address: [address] [place] [address] Performed By: #### T SCR ####[facility]CL[facility] [id number] [place] [id number] [place] Rh Nom (Bld) Positive Normal [facility] Comment on above: Order Comment: Speci men Type: BLOOD SPECIMENOrdering Facility: [facility] Address: [address] [place], [place] [id number] Performed By: #### T SCR ####[facility]ANKCLIA [id number] [place] [id number] [place] TYPE AND SCREEN EXPIRATION 03/06/2024 23:59 Normal [facility] Comment on above: Order Comment: Speci men Type: BLOOD SPECIMENOrdering Facility: [facility] Address: [address] [place] [address] Performed By: #### T SCR ####[facility] BLOOD BANKCLIA [id number] [place] [address] [place] ALLIED HEALTHon 03-02-2024 ALLIED HEALTH Normal [facility] CASE MGT INIT ASSESon 2023 CASE MGT INIT ASSES Normal [facility] CASE MGT INIT ASSES Normal [facility] CBC panel Auto (Bld)on 03-02 Erythrocyte distribution width (RBC) [Ratio] 18.5 % High 11.5-15.0 [facility] Comment on above: Order Comment: Speci men Type: BLOOD SPECIMENOrdering Facility: [facility] Address: [address] [place] [address] Performed By: #### 5 8410-2 ####[facility] LABCLIA [id number] [place] [address] [place] Hematocrit (Bld) [Volume fraction] 38.5 % Low 39.0-51.0 [facility] Comment on above: Order Comment: Speci men Type: BLOOD SPECIMENOrdering Facility: [facility] Address: [address] [place] [address] Performed By: #### 5 8410-2 ####[facility] LABCLIA [id number] [place] [id number] [place] Hemoglobin (Bld) [Mass/Vol] 11.9 g/dL Low 13.0-17.0 [facility] Comment on above: Order Comment: Speci men Type: BLOOD SPECIMENOrdering Facility: [facility] Address: [address] [place] [address] Performed By: #### 5 8410-2 ####[facility] LABCLIA [id number] [place] [address] [place] MCH (RBC) [Entitic mass] 27.4 pg Normal 26.0-34.0 [facility] Comment on above: Order Comment: Speci men Type: BLOOD SPECIMENOrdering Facility: [facility] Address: [address] [place] [address] Performed By: #### 5 8410-2 ####[facility] LABIA [id number] [place] [address] [place] MCHC (RBC) [Mass/Vol] 30.9 g/dL Normal 30.5-36.0 [facility] Comment on above: Order Comment: Speci men Type: BLOOD SPECIMENOrdering Facility: [facility] Address: [address] [place] [address] Performed By: #### 5 8410-2 ####[facility] [id number] [place] [address] [place] MCV (RBC) [Entitic vol] 88.5 fL Normal 80.0-100.0 [facility] Comment on above: Order Comment: Speci men Type: BLOOD SPECIMENOrdering Facility: [facility] Address: [address] [place] [address] Performed By: #### 5 8410-2 ####[facility] [id number] [place] [address] [place] Nucleated RBC (Bld) [#/Vol] 10*3/uL Normal <0.01 [facility] Comment on above: Order Comment: Speci men Type: BLOOD SPECIMENOrdering Facility: [facility] Address: [address] [place] [address] Performed By: #### 5 8410-2 ####[facility] [id number] [place] [address] [place] Platelet mean volume (Bld) [Entitic vol] 10.3 fL Normal 9.0-12.7 [facility] Comment on above: Order Comment: Speci men Type: BLOOD SPECIMENOrdering Facility: [facility] Address: [address] [place] [address] Performed By: #### 5 8410-2 ####[facility] LABCLIA [id number] [place] [address] [place] Platelets (Bld) [#/Vol] 177 10*3/uL Normal 150-400 [facility] Comment on above: Order Comment: Speci men Type: BLOOD SPECIMENOrdering Facility: [facility] Address: [address] [place] [address] Performed By: #### 5 8410-2 ####[facility] LABCLIA [id number] [place] [address] [place] RBC (Bld) [#/Vol] 4.35 10*6/uL Normal 4.20-6.00 [facility] Comment on above: Order Comment: Speci men Type: BLOOD SPECIMENOrdering Facility: [facility] Address: [address] [place] [address] Performed By: #### 5 8410-2 ####[facility] LABCLIA [id number] [place] [address] [place] WBC (Bld) [#/Vol] 5.22 10*3/uL Normal 3.70-11.00 [facility] Comment on above: Order Comment: Speci men Type: BLOOD SPECIMENOrdering Facility: [facility] Address: [address] [place] [address] Performed By: #### 5 8410-2 ####[facility] LABCLIA [id number] [place] [address] [place] CONSULTon 03-02-2024 CONSULT Normal [facility] HISTORY PHYSICALon HISTORY PHYSICAL Normal [facility] NUTRITIONon 03-02-2024 NUTRITION Normal [facility] PTT, ANTICOAGULANT THERAPYon 03-02-2024 aPTT Coag (PPP) [Time] 67.7 s High 23.0-32.4 [facility] Comment on above: Order Comment: Speci men Type: BLOOD SPECIMENOrdering Facility: [facility] Address: [address] [place] [address] Performed By: #### P TTAC ####[facility] LABCLIA [id number] [place] [address] [place] aPTT Coag (PPP) [Time] 53.4 s High 23.0-32.4 [facility] Comment on above: Order Comment: Speci men Type: BLOOD SPECIMENOrdering Facility: [facility] Address: [address] [place] [address] Performed By: #### P TTAC ####[facility] LABCLIA [id number] [place] [address] [place] aPTT Coag (PPP) [Time] 38.6 s High 23.0-32.4 [facility] Comment on above: Order Comment: Speci men Type: BLOOD SPECIMENOrdering Facility: [facility] Address: [address] [place] [address] Performed By: #### P TTAC ####[facility] LABCLIA [id number] [place] [address] [place] Renal function 2000 panelon 03-02-2024 Albumin [Mass/Vol] 3.3 g/dL Low 3.9-4.9 [facility] Comment on above: Order Comment: Speci men Type: BLOOD SPECIMENOrdering Facility: [facility] Address: [address] [place] [address] Performed By: #### 2 4362-6 ####[facility] LABCLIA [id number] [place] [address] [place] Anion gap [Moles/Vol] 11 mmol/L Normal 8-15 [facility] Comment on above: Order Comment: Speci men Type: BLOOD SPECIMENOrdering Facility: [facility] Address: [address] [place], [place] [address] Performed By: #### 2 4362-6 ####[facility] LABCLIA [id number] [place] [address] [place] Calcium [Mass/Vol] 9.6 mg/dL Normal 8.5-10.2 [facility] Comment on above: Order Comment: Speci men Type: BLOOD SPECIMENOrdering Facility: [facility] Address: [address] [place] [address] Performed By: #### 2 4362-6 ####[facility] LABCLIA [id number] [place] [address] [place] Chloride [Moles/Vol] 103 mmol/L Normal 98-107 [facility] Comment on above: Order Comment: Speci men Type: BLOOD SPECIMENOrdering Facility: [facility] Address: [address] [place] [address] Performed By: #### 2 4362-6 ####[facility] LABCLIA [id number] [place] [address] [place] CO2 [Moles/Vol] 25 mmol/L Normal 22-30 [facility] Comment on above: Order Comment: Speci men Type: BLOOD SPECIMENOrdering Facility: [facility] Address: [address] [place], [place] [address] Performed By: #### 2 4362-6 ####[facility] LABCLIA [id number] [facility] [place] [id number] [place] Creatinine [Mass/Vol] 1.89 mg/dL High 0.73-1.22 [facility] Comment on above: Order Comment: Speci men Type: BLOOD SPECIMENOrdering Facility: [facility] Address: [address] [place], [place] [address] Performed By: #### 2 4362-6 ####[facility] LABCLIA [id number] [place] [address] [place] Creatinine and Glomerular filtration rate.predicted panel (S/P/Bld) 35 mL/min/1.73m??? Low >=60 [facility] Comment on above: Order Comment: Dylan olvera Type: BLOOD SPECIMENOrdering Facility: [facility] Address: [address] [place] [address] Result Comment: Etta mated Glomerular Filtration Rate [...] reflect actual GFR. Performed By: #### 2 4362-6 ####[facility] LABCLIA [id number] [place] [address] [place] Glucose [Mass/Vol] 88 mg/dL Normal 74-99 [facility] Comment on above: Order Comment: Dylan olvera Type: BLOOD SPECIMENOrdering Facility: [facility] Address: [address] [place] [address] Result Comment: The [place] [employer] (ADA) provides guidance for cutoff values for fasting glucose and random glucose. The ADA defines fasting as no caloric intake for at least 8 hours. Fasting plasma glucose results between 100 to 125 mg/dL indicate increased risk for diabetes (prediabetes).Fasting plasma glucose results greater than or equal to 126 mg/dL meet the criteria for diagnosis of diabetes. In the absence of unequivocal hyperglycemia, results should be confirmed by repeat testing. In a patient with classic symptoms of hyperglycemia or hyperglycemic crisis, random plasma glucose results greater than or equal to 200 mg/dL meet the criteria for diagnosis of diabetes.Reference: Standards of Medical Care in Diabetes 2016, [place] [employer]. Diabetes Care. 2016.39(Suppl 1). Performed By: #### 2 4362-6 ####[facility] LABCLIA [id number] [place] [address] [place] Phosphate [Mass/Vol] 3.1 mg/dL Normal 2.7-4.8 [facility] Comment on above: Order Comment: Speci men Type: BLOOD SPECIMENOrdering Facility: [facility] Address: [address] [place] [id number] Performed By: #### 2 4362-6 ####[facility] LABCLIA [id number] [place] [id number] [place] Potassium [Moles/Vol] 3.9 mmol/L Normal 3.7-5.1 [facility] Comment on above: Order Comment: Speci men Type: BLOOD SPECIMENOrdering Facility: [facility] Address: [address] [place] [address] Performed By: #### 2 4362-6 ####[facility] LABCLIA [id number] [place] [address] [place] Sodium [Moles/Vol] 139 mmol/L Normal 136-144 [facility] Comment on above: Order Comment: Speci men Type: BLOOD SPECIMENOrdering Facility: [facility] Address: [address] [place], [place] [address] Performed By: #### 2 4362-6 ####[facility] LABCLIA [id number] [place] [address] [place] Urea nitrogen [Mass/Vol] 21 mg/dL Normal 9-24 [facility] Comment on above: Order Comment: Speci men Type: BLOOD SPECIMENOrdering Facility: [facility] Address: [address] [place] [address] Performed By: #### 2 4362-6 ####[facility] LABCLIA [id number] [place] [address] [place] Albumin [Mass/Vol] 3.5 g/dL Low 3.9-4.9 [facility] Comment on above: Order Comment: Speci men Type: BLOOD SPECIMENOrdering Facility: [facility] Address: [address] [place], [place] [address] Performed By: #### 2 4362-6 ####[facility] LABCLIA [id number] [address] [address] [place] Anion gap [Moles/Vol] 13 mmol/L Normal 8-15 [facility] Comment on above: Order Comment: Speci men Type: BLOOD SPECIMENOrdering Facility: [facility] Address: [address] [place] [address] Performed By: #### 2 4362-6 ####[facility] LABCLIA [id number] [place] [address] [place] Calcium [Mass/Vol] 9.9 mg/dL Normal 8.5-10.2 [facility] Comment on above: Order Comment: Speci men Type: BLOOD SPECIMENOrdering Facility: [facility] Address: [address] [place] [address] Performed By: #### 2 4362-6 ####[facility] LABCLIA [id number] [place] [address] [place] Chloride [Moles/Vol] 101 mmol/L Normal 98-107 [facility] Comment on above: Order Comment: Speci men Type: BLOOD SPECIMENOrdering Facility: [facility] Address: [address] [place] [address] Performed By: #### 2 4362-6 ####[facility] LABCLIA [id number] [place] [address] [place] CO2 [Moles/Vol] 25 mmol/L Normal 22-30 [facility] Comment on above: Order Comment: Speci men Type: BLOOD SPECIMENOrdering Facility: [facility] Address: [address] [place], [place] [address] Performed By: #### 2 4362-6 ####[facility] LABCLIA [id number] [place] [id number] [place] Creatinine [Mass/Vol] 1.84 mg/dL High 0.73-1.22 [facility] Comment on above: Order Comment: Dylan olvera Type: BLOOD SPECIMENOrdering Facility: [facility] Address: [address] [place] [address] Performed By: #### 2 4362-6 ####[facility] LABIA [id number] [place] [address] [place] Creatinine and Glomerular filtration rate.predicted panel (S/P/Bld) 36 mL/min/1.73m??? Low >=60 [facility] Comment on above: Order Comment: Dylan olvera Type: BLOOD SPECIMENOrdering Facility: [facility] Address: [address] [place] [address] Result Comment: Etta mated Glomerular Filtration Rate [...] reflect actual GFR. Performed By: #### 2 4362-6 ####[facility] LABIA [id number] [place] [address] [place] Glucose [Mass/Vol] 96 mg/dL Normal 74-99 [facility] Comment on above: Order Comment: Dylan olvera Type: BLOOD SPECIMENOrdering Facility: [facility] Address: [address] [place] [address] Result Comment: The [place] [employer] (ADA) provides guidance for cutoff values for fasting glucose and random glucose. The ADA defines fasting as no caloric intake for at least 8 hours. Fasting plasma glucose results between 100 to 125 mg/dL indicate increased risk for diabetes (prediabetes).Fasting plasma glucose results greater than or equal to 126 mg/dL meet the criteria for diagnosis of diabetes. In the absence of unequivocal hyperglycemia, results should be confirmed by repeat testing. In a patient with classic symptoms of hyperglycemia or hyperglycemic crisis, random plasma glucose results greater than or equal to 200 mg/dL meet the criteria for diagnosis of diabetes.Reference: Standards of Medical Care in Diabetes 2016, [place] [employer]. Diabetes Care. 2016.39(Suppl 1). Performed By: #### 2 4362-6 ####[facility] LABCLIA [id number] [place] [address] [place] Phosphate [Mass/Vol] 3.3 mg/dL Normal 2.7-4.8 [facility] Comment on above: Order Comment: Speci men Type: BLOOD SPECIMENOrdering Facility: [facility] Address: [address] [place] [address] Performed By: #### 2 4362-6 ####[facility] LABCLIA [id number] [place] [address] [place] Potassium [Moles/Vol] 4.1 mmol/L Normal 3.7-5.1 [facility] Comment on above: Order Comment: Speci men Type: BLOOD SPECIMENOrdering Facility: [facility] Address: [address] [place] [address] Performed By: #### 2 4362-6 ####[facility] LABIA [id number] [place] [address] [place] Sodium [Moles/Vol] 139 mmol/L Normal 136-144 [facility] Comment on above: Order Comment: Speci men Type: BLOOD SPECIMENOrdering Facility: [facility] Address: [address] [place] [address] Performed By: #### 2 4362-6 ####[facility] LABCLIA [id number] [place] [id number] [place] Urea nitrogen [Mass/Vol] 21 mg/dL Normal 9-24 [facility] Comment on above: Order Comment: Speci men Type: BLOOD SPECIMENOrdering Facility: [facility] Address: [address] [place] [address] Performed By: #### 2 4362-6 ####[facility] LABCLIA [id number] [place] [id number] [place] US CAROTID BILon 03-02-2024 US CAROTID DIANNE Normal [facility] US TCD CONTIN EMBOLI MONTon 03-02-2024 US TCD CONTIN EMBOLI MATTEO Normal [facility] VISUAL FIELD 24-2 OU (BOTH E YES)on 03-02-2024 [facility] Radiology Study observation (narrative) [facility] BASIC METABOLIC PANLon 03-01 Anion gap [Moles/Vol] 8 mmol/L Normal 5-15 [facility] Comment on above: Performed By: #### C BCA, PINR, 15777-1, CMP #### [facility] ([id number]) [address] [place] [address] Calcium [Mass/Vol] 9.2 mg/dL Normal 8.5-10.5 [facility] Comment on above: Performed By: #### C BCA, PINR, 78791-0, CMP #### [facility] ([id number]) [address] [place] [address] Chloride [Moles/Vol] 104 mmol/L Normal 98-109 [facility] Comment on above: Performed By: #### C BCA, PINR, 86734-7, CMP #### [facility] ([id number]) [address] [place] [address] CO2 [Moles/Vol] 25 mmol/L Normal 22-32 [facility] Comment on above: Performed By: #### C BCA, PINR, 81557-4, CMP #### [facility] ([id number]) [address] [place] [address] Creatinine [Mass/Vol] 1.76 mg/dL High 0.70-1.20 [facility] Comment on above: Result Comment: METH OD TRACEABLE TO IDMS STANDARD Performed By: #### C BCA, PINR, 47448-8, CMP #### [facility] ([id number]) [address] [place] [address] GFR/1.73 sq M.predicted among non-blacks MDRD (S/P/Bld) [Vol rate/Area] 38 mL/min/{1.73_m2} Low >59 [facility] Comment on above: Result Comment: Reported eGFR is based on the CKD-EPI 2020 equation that does not use a race coefficient. Performed By: #### C RODO PINR, 65974-8, CMP #### [facility] ([id number]) [address] [place] [address]27 Glucose [Mass/Vol] 94 mg/dL Normal 65-99 [facility] Comment on above: Performed By: #### C RODO PINR, 98103-8, CMP #### [facility] ([id number]) [address] [place] [address] Potassium [Moles/Vol] 3.6 mmol/L Normal 3.5-5.0 [facility] Comment on above: Performed By: #### C BCA, PINR, 90164-4, CMP #### [facility] ([id number]) [address] [place] [address]38 Sodium [Moles/Vol] 137 mmol/L Normal 134-146 [facility] Comment on above: Performed By: #### C BCA, PINR, 05805-7, CMP #### [facility] ([id number]) [address] [place] [address]13 Urea nitrogen [Mass/Vol] 23 mg/dL Normal 5-27 [facility] Comment on above: Performed By: #### C BCA, PINR, 29901-3, CMP #### [facility] ([id number]) [address] [place] [address] COMPLETE BLOOD COUNTon 03-01 Erythrocyte distribution width (RBC) [Ratio] 19.6 % High 11.5-15.0 [facility] Comment on above: Performed By: #### C BCA, PINR, 54885-0, CMP #### [facility] ([id number]) [address] [place] [address]72 Hematocrit (Bld) [Volume fraction] 35.8 % Low 39-49 [facility] Comment on above: Performed By: #### C PHILLIP KOEHLERR, 89575-7, CMP #### [facility] ([id number]) [address] [place] [address] Hemoglobin (Bld) [Mass/Vol] 11.7 g/dL Low 13.0-17.0 [facility] Comment on above: Performed By: #### PHILLIP Cunningham BCAR, 72435-6, CMP #### [facility] ([id number]) [address] [place] [address]504 MCH (RBC) [Entitic mass] 27.6 pg Normal 27-34 [facility] Comment on above: Performed By: #### Marisa KOEHLER PINR, 06791-6, CMP #### [facility] ([id number]) [address] [place] [address]659 MCHC (RBC) [Mass/Vol] 32.6 g/dL Normal 32-36 [facility] Comment on above: Performed By: #### PHILLIP Cunningham BCAR, 69803-2, CMP #### [facility] ([id number]) [address] [place] [address]1822 MCV (RBC) [Entitic vol] 85 fL Normal 80-100 [facility] Comment on above: Performed By: #### Marisa KOEHLER PINR, 41904-6, CMP #### [facility] ([id number]) [address] [place] [address]392 Platelet mean volume (Bld) [Entitic vol] 8.4 fL Normal 7-12 [facility] Comment on above: Performed By: #### Marisa KOEHLER PINR, 96556-5, CMP #### [facility] ([id number]) [address] [place] [address] 39145 Platelets (Bld) [#/Vol] 190 10*3/uL Normal 150-450 [facility] Comment on above: Performed By: #### C RODO, PINR, 89310-6, CMP #### [facility] ([id number]) [address] [place] [address] 89738 RBC COUNT 4.23 X10E12/L Normal 4.10-5.70 [facility] Comment on above: Performed By: #### C RODO, PINR, 85057-6, CMP #### [facility] ([id number]) [address] [place] [address] 08745 WBC (Bld) [#/Vol] 5.5 10*3/uL Normal 4.0-11.0 [facility] Comment on above: Performed By: #### C RODO, PINR, 65068-1, CMP #### [facility] ([id number]) [address] [place] [address] 72738 ECG COMPLETEon 03-01-2024 ECG COMPLETE Normal [facility] NURSING PROGon 03-01-2024 NURSING PROG Normal [facility] aPTT Coag (PPP) [Time]on aPTT Coag (Bld) [Time] 60 s High 26-37 [facility] Comment on above: Result Comment: NEW REFERENCE RANGE Performed By: #### 1 4979-9 ####[facility] ([id number])[address] [place] [address] HEMOGLOBINon 02-29-2024 Hemoglobin (Bld) [Mass/Vol] 11.6 g/dL Low 13.0-17.0 [facility] Comment on above: Performed By: #### 7 18-7, PLTCT ####[facility] ([id number])[address] [place] [address]5629 PLATELET COUNT AND MPVon Platelet mean volume (Bld) [Entitic vol] 8.3 fL Normal - [facility] Comment on above: Performed By: #### 7 18-7, PLTCT ####[facility] ([id number])[address] [place] [address] 95730 Platelets (Bld) [#/Vol] 199 10*3/uL Normal 150-450 [facility] Comment on above: Performed By: #### 7 -7, PLTCT ####[facility] ([id number])[address] [place] [address]9589 aPTT Coag (PPP) [Time]on aPTT Coag (Bld) [Time] 64 s High 26-37 [facility] Comment on above: Result Comment: NEW REFERENCE RANGE Performed By: #### 1 4979-9 ####[facility] ([id number])[address] [place] [address] 19052 CNPNon 02-28-2024 CNPN Normal [facility] HEMOGLOBINon 02-28-2024 Hemoglobin (Bld) [Mass/Vol] 11.6 g/dL Low 13.0-17.0 [facility] Comment on above: Performed By: #### 7 -7, PLTCT ####[facility] ([id number])[address] [place] [address]1389 PLATELET COUNT AND MPVon Platelet mean volume (Bld) [Entitic vol] 8.0 fL Normal - [facility] Comment on above: Performed By: #### 7 18-7, PLTCT ####[facility] ([id number])[address] [place] [address] 61658 Platelets (Bld) [#/Vol] 195 10*3/uL Normal 150-450 [facility] Comment on above: Performed By: #### 7 18-7, PLTCT ####[facility] ([id number])[address] [place] [address]22 aPTT Coag (PPP) [Time]on aPTT Coag (Bld) [Time] 64 s High [address] [place] [address] Comment on above: Result Comment: NEW REFERENCE RANGE Performed By: #### 1 4979-9 ####[facility] ([id number])[address] [place] [address] 62619 aPTT Coag (Bld) [Time] 77 s High [address] [place] [address] Comment on above: Result Comment: NEW REFERENCE RANGE Performed By: #### 1 4979-9 ####[facility] ([id number])[address] [place] [address] 18869 aPTT Coag (Bld) [Time] 91 s High [address] [place] [address] Comment on above: Result Comment: NEW REFERENCE RANGE Performed By: #### 1 4979-9 ####[facility] ([id number])[address] [place] [address] 24341 aPTT Coag (Bld) [Time] 113 s Critically high [address] [place] [address] Comment on above: Result Comment: NEW REFERENCE RANGE Performed By: #### 1 4979-9 ####[facility] ([id number])[address] [place] [address] [place] [address] CNPNon 02-27-2024 CNPN Normal [facility] aPTT Coag (PPP) [Time]on aPTT Coag (Bld) [Time] s Critically high [address] [place] [address] Comment on above: Result Comment: NEW REFERENCE RANGE Performed By: #### 1 4979-9 #### [facility] ([id number]) [address] [place] [address] 46197 aPTT Coag (Bld) [Time] s Critically high 26-37 [facility] Comment on above: Result Comment: NEW REFERENCE RANGE Performed By: #### 1 4979-9 #### [facility] ([id number]) [address] [place] [address] 96164 CBC AND AUTO DIFFon 02-26-20 24 ABSOLUTE BASOPHIL 0.0 X10E9/L Normal 0.0-0.2 [facility] Comment on above: Performed By: #### C BCA, PINR, 58582-7, CMP #### [facility] ([id number]) [address] [place] [address] 65122 ABSOLUTE NEUTROPHIL 4.9 X10E9/L Normal 1.5-6.6 [facility] Comment on above: Performed By: #### C BCA, PINR, 97640-3, CMP #### [facility] ([id number]) [address] [place] [address] 16361 Basophils/100 WBC (Bld) 0.6 % Normal [facility] Comment on above: Performed By: #### Marisa BCA, PINR, 42019-8, CMP #### [facility] ([id number]) [address] [place] [address] 14216 Eosinophils (Bld) [#/Vol] 0.2 10*3/uL Normal 0.0-0.4 [facility] Comment on above: Performed By: #### C BCA, PINR, 39195-3, CMP #### [facility] ([id number]) [address] [place] [address] 40083 Eosinophils/100 WBC (Bld) 3.3 % Normal [facility] Comment on above: Performed By: #### Marisa BCA, PINR, 23324-7, CMP #### [facility] ([id number]) [address] [place] [address] 33062 Erythrocyte distribution width (RBC) [Ratio] 18.9 % High 11.5-15.0 [facility] Comment on above: Performed By: #### C KATHERINE KOEHLER, 74164-8, CMP #### [facility] ([id number]) [address] [place] [address] 27893 Hematocrit (Bld) [Volume fraction] 37.2 % Low 39-49 [facility] Comment on above: Performed By: #### KATHERINE Cunningham BCA, 79751-8, CMP #### [facility] ([id number]) [address] [place] [address] 33064 Hemoglobin (Bld) [Mass/Vol] 12.3 g/dL Low 13.0-17.0 [facility] Comment on above: Performed By: #### KATHERINE Cunningham BCA, 00561-2, CMP #### [facility] ([id number]) [address] [place] [address] 42513 Lymphocytes (Bld) [#/Vol] 1.5 10*3/uL Normal 1.0-3.5 [facility] Comment on above: Performed By: #### KATHERINE Cunningham BCA, 89626-1, CMP #### [facility] ([id number]) [address] [place] [address] 00449 Lymphocytes/100 WBC (Bld) 19.5 % Normal [facility] Comment on above: Performed By: #### KATHERINE Cunningham BCA, 74877-4, CMP #### [facility] ([id number]) [address] [place] [address] 63767 MCH (RBC) [Entitic mass] 27.7 pg Normal 27-34 [facility] Comment on above: Performed By: #### PHILLIP Cunningham BCAR, 69560-6, CMP #### [facility] ([id number]) [address] [place] [address] 69647 MCHC (RBC) [Mass/Vol] 33.1 g/dL Normal 32-36 [facility] Comment on above: Performed By: #### C RODO, PINR, 08779-2, CMP #### [facility] ([id number]) [address] [place] [address] 25094 MCV (RBC) [Entitic vol] 84 fL Normal 80-100 [facility] Comment on above: Performed By: #### Marisa KOEHLER, PINR, 89735-9, CMP #### [facility] ([id number]) [address] [place] [address] 66831 Monocytes (Bld) [#/Vol] 0.8 10*3/uL Normal 0-0.9 [facility] Comment on above: Performed By: #### C RODO, PINR, 95371-0, CMP #### [facility] ([id number]) [address] [place] [address] 35015 Monocytes/100 WBC (Bld) 10.5 % Normal [facility] Comment on above: Performed By: #### Marisa KOEHLER, PINR, 33960-0, CMP #### [facility] ([id number]) [address] [place] [address] 79961 Neutrophils/100 WBC (Bld) 66.1 % Normal [facility] Comment on above: Performed By: #### Marisa KOEHLER, PINR, 51022-7, CMP #### [facility] ([id number]) [address] [place] [address] [place] [address] Platelet mean volume (Bld) [Entitic vol] 8.0 fL Normal 7-12 [facility] Comment on above: Performed By: #### Marisa KOEHLER, PINR, 11419-4, CMP #### [facility] ([id number]) [address] [place] [address] 40613 Platelets (Bld) [#/Vol] 228 10*3/uL Normal 150-450 [facility] Comment on above: Performed By: #### Marisa BCA, PINR, 16176-7, CMP #### [facility] ([id number]) [address] [place] [address] 19152 RBC COUNT 4.45 X10E12/L Normal 4.10-5.70 [facility] Comment on above: Performed By: #### C BCA, PINR, 63286-6, CMP #### [facility] ([id number]) [address] [place] [address] 89783 WBC (Bld) [#/Vol] 7.5 10*3/uL Normal 4.0-11.0 [facility] Comment on above: Performed By: #### C BCA, PINR, 02283-2, CMP #### [facility] ([id number]) [address] [place] [address] 97681 COMPREHENSIVE METABOLIC PANE [facility] 02-26-2024 Albumin [Mass/Vol] 3.4 g/dL Normal 3.2-5.3 [facility] Comment on above: Performed By: #### C BCA, PINR, 35302-4, CMP #### [facility] ([id number]) [address] [place] [address] 07711 ALP [Catalytic activity/Vol] 88 U/L Normal 39-130 [facility] Comment on above: Performed By: #### C BCA, PINR, 08768-4, CMP #### [facility] ([id number]) [address] [place] [address] 02099 ALT [Catalytic activity/Vol] 18 U/L Normal 0-40 [facility] Comment on above: Performed By: #### C BCA, PINR, 15307-2, CMP #### [facility] ([id number]) [address] [place] [address] 00127 Anion gap [Moles/Vol] 9 mmol/L Normal 5-15 [facility] Comment on above: Performed By: #### C BCA, PINR, 55649-7, CMP #### [facility] ([id number]) [address] [place] [address] 53073 AST [Catalytic activity/Vol] 26 U/L Normal 0-41 [facility] Comment on above: Performed By: #### C BCA, PINR, 46287-8, CMP #### [facility] ([id number]) [address] [place] [address] [place] [address] Bilirubin [Mass/Vol] 1.2 mg/dL Normal 0.3-1.2 [facility] Comment on above: Performed By: #### C BCA, PINR, 57408-5, CMP #### [facility] ([id number]) [address] [place] [address] 30620 Calcium [Mass/Vol] 9.1 mg/dL Normal 8.5-10.5 [facility] Comment on above: Performed By: #### C BCA, PINR, 33909-9, CMP #### [facility] ([id number]) [address] [place] [address] 71920 Chloride [Moles/Vol] 101 mmol/L Normal 98-109 [facility] Comment on above: Performed By: #### C BCA, PINR, 38576-7, CMP #### [facility] ([id number]) [address] [place] [address] [place] [address] CO2 [Moles/Vol] 25 mmol/L Normal 22-32 [facility] Comment on above: Performed By: #### C BCA, PINR, 79764-2, CMP #### [facility] ([id number]) [address] [place] [address] [place] [address] Creatinine [Mass/Vol] 2.08 mg/dL High 0.70-1.20 [facility] Comment on above: Result Comment: METH OD TRACEABLE TO IDMS STANDARD Performed By: #### C BCA, PINR, 36744-4, CMP #### [facility] ([id number]) [address] [place] [address] 58945 GFR/1.73 sq M.predicted among non-blacks MDRD (S/P/Bld) [Vol rate/Area] 31 mL/min/{1.73_m2} Low >59 [facility] Comment on above: Result Comment: Reported eGFR is based on the CKD-EPI 2020 equation that does not use a race coefficient. Performed By: #### C BCA, PINR, 80663-5, CMP #### [facility] ([id number]) [address] [place] [address] 87431 Glucose [Mass/Vol] 122 mg/dL High 65-99 [facility] Comment on above: Performed By: #### C RODO, PINR, 72610-2, CMP #### [facility] ([id number]) [address] [place] [address] 35501 Potassium [Moles/Vol] 3.8 mmol/L Normal 3.5-5.0 [facility] Comment on above: Performed By: #### C BCA, PINR, 07816-7, CMP #### [facility] ([id number]) [address] [place] [address] 48969 Protein [Mass/Vol] 7.3 g/dL Normal 6.0-8.0 [facility] Comment on above: Performed By: #### C BCA, PINR, 18526-9, CMP #### [facility] ([id number]) [address] [place] [address] 24770 Sodium [Moles/Vol] 135 mmol/L Normal 134-146 [facility] Comment on above: Performed By: #### C BCA, PINR, 54207-5, CMP #### [facility] ([id number]) [address] [place] [address] 62241 Urea nitrogen [Mass/Vol] 29 mg/dL High 5-27 [facility] Comment on above: Performed By: #### C RODO, PINR, 02316-4, [facility] #### [facility] ([id number]) [address] [place] [address], [place] [address] CT BRAIN WO CONT STROKE ALER Ton 02-26-2024 CT BRAIN WO CONT STROKE ALERT CT BRAIN WO CONT STROKE ALERT STUDY: CT HEAD WITHOUT CONTRAST CLINICAL HISTORY: Neuro deficit, acute, stroke suspected Blurred vision left eye COMPARISON: August 18, 2021 Procedure: Multi-detector CT performed through the brain without IV contrast. The lack of IV contrast limits evaluation for acute infarct, mass, infectious process,or demyelinating disease.Automated exposure control was utilized. Findings: Probable right parietal low-attenuation within the deep white matter extending to the cortex. I favor a subacute or chronic infarct. This represents change from prior study. Neoplasm or brain abscess can also present in this fashion. Contrast brain MRI suggested. There is no intracranial hemorrhage, extra-axial fluid collection, mass effect, or hydrocephalus. Tong-white matter differentiation is appropriate. Infarcts and masses may be occult on CT, but grossly no acute infarct identified There is no midline shift. IMPRESSION: * Probable right parietal low-attenuation within the deep white matter extending to the cortex. I favor a subacute or chronic infarct. This represents change from prior study. Neoplasm or brain abscess can also present in this fashion. Contrast brain MRI suggested. THIS REPORT CONTAINS A SIGNIFICANT RESULT AND/OR RECOMMENDATION, WHICH REQUIRES THE ATTENTION OF THE LICENSED CAREGIVER RESPONSIBLE FOR THIS PATIENT. THEREFORE, I SPECIFICALLY DESIGNATED THIS REPORT TO BE TELEPHONED BY THE RADIOLOGY DEPARTMENT. * All CT scans at this facility use dose modulation, iterative reconstruction, and/or weight based dosing when appropriate to reduce radiation dose to as low as reasonably achievable. Finalized by Aniceto Khoury MD on 02/26/2024 11:09 PM Normal [facility] CT CTA CAROTIDon 02-26-[address] CTA CAROTID Examination: CTA carotids Clinical History: Neuro deficit, acute, stroke suspected Blurred vision left eye. Stroke. Comparison: August 17, 2021 CT CTA CAROTID Procedure: Multidetector CT angiogram performed through the cervical portion of the carotid arteries without complication, including source images and maximum intensity projection 3-D images displayed and reviewed on an independent PACS workstation by the radiologist. Automated exposure control was utilized. The [place] Symptomatic Carotid Endarterectomy Trial (NASCET)calculation of ICA stenosis percentage using the following formula with a threshold of 60 to 70%: % ICA stenosis = (1 - [narrowest ICA diameter/diameter normal distal cervical ICA]) x 100 Findings: 3-D images confirm the source images. Severe hemodynamically significant stenosis of the left internal carotid artery origin similar prior examination with estimated stenosis of 99% Atherosclerotic irregularity of the right internal carotid artery origin unchanged without stenosis High-grade stenosis of the left vertebral artery origin unchanged and probably moderate stenosis at the origin the right vertebral artery origin. Remainder of the vertebral arteries are patent and the distal internal carotid arteries are patent No hemodynamically significant stenosis of the internal carotid artery relative to the distal internal carotid artery diameter. Flow is demonstrated within bilateral vertebral arteries, and bilateral internal, external, and common carotid arteries. IMPRESSION: Findings a similar prior examination.Severe hemodynamically significant stenosis of the left internal carotid artery origin similar prior examination with estimated stenosis of 99% Atherosclerotic irregularity of the right internal carotid artery origin unchanged without stenosis High-grade stenosis of the left vertebral artery origin unchanged and probably moderate stenosis at the origin the right vertebral artery origin. Remainder of the vertebral arteries are patent and the distal internal carotid arteries are patent * All CT scans at this facility use dose modulation, iterative reconstruction, and/or weight based dosing when appropriate to reduce radiation dose to as low as reasonably achievable. For Reference: Carotid Doppler: For Carotid doppler reports, click Chart review, then cardiovascular tab at top Normal: 0% - PSV <150 cm/sec (No visible atherosclerosis) Plaque with no significant stenosis: (<50% ICA stenosis: PSV < 150 cm/sec ( <50% stenosis carotid atherosclerosis by B-mode image 50-69% ICA Stenosis: PSV > 150 cm /sec and EDV < 100 cm/sec; ICA/CCA Ratio < 4.0 > 70% ICA Stenosis: PSV > 230 cm/sec and EDV > 100 cm/sec; ICA/CCA Ratio > 4.0 ICA Occlusion: Absent PW Doppler and color flow signal; High resistive CCA flow velocity signal >70 % Post Cartoid Endarterectomy Stenosis: PSV >275 cm/sec and EDV >110 cm/sec >70 Post Carotid Stent Stenosis: PSV >325 cm/sec and EDV >120 cm/sec *PSV- Peak Systolic Velocity *EDV- End Diastolic Velocity Finalized by Aniceto Khoury MD on 02/26/2024 11:38 PM Normal [facility] CT CTA HEADon 02-26-[address]A HEAD CT angiogram head with contrast History: Stroke. Neurologic deficit. Technique: CT angiogram of the head was performed following intravenous administration nonionic intravenous contrast. 3-D maximum intensity projection images generated and reviewed under concurrent physician supervision. Arterial blood flow was measured to assist the stroke clinical team in the diagnosis of large vessel occlusion in patients undergoing screening for acute ischemic stroke using Rapid AI software when clinically indicated. Automated exposure control was utilized. All CT scans at this facility dose modulation, iterative reconstruction, and/or weight based dosing when appropriate to reduce radiation dose to as low as reasonably achievable. Findings: Comparison CT 08/17/2021. Intracranial internal carotid arteries: Mild scattered atherosclerotic calcification without significant stenosis. Otherwise unremarkable. Anterior cerebral arteries: Within normal limits. Normal anterior communicating artery. Middle cerebral arteries: Within normal limits. Previously visualized right M1 segment occlusion has been recannulize and the middle cerebral arteries are patent. Posterior communicating arteries: Normal on the left, diminutive on the right. Intracranial vertebral arteries: Patent. Basilar artery: Patent. Posterior cerebral arteries: Persistent circulation on the left, normal variant. Within normal limits on the right. No large vessel intracranial arterial stenosis, occlusion, or aneurysmal dilatation. Impression: Unremarkable CTA head. Finalized by Kirk Engel MD on 02/26/2024 11:29 PM Normal [facility] Glucose Glucometer (BldC) [M ass/Vol]on 02-26-2024 Glucose [Mass/Vol] 112 mg/dL High 65-99 [facility] PROTIME AND INRon 02-26-2024 INR Coag (PPP) [Relative time] 2.1 {INR} High 0.8-1.1 [facility] Comment on above: Performed By: #### C KATHERINE KOEHLER, 55631-3, CMP #### [facility] ([id number]) [address] [place] [address], [place] [address] PT Coag (PPP) [Time] 23.9 s High 9.8-13.2 [facility] Comment on above: Result Comment: NEW REFERENCE RANGE Performed By: #### C BCA, PINR, 83643-0, CMP #### [facility] ([id number]) [address] [place] [address] 68123 aPTT Coag (PPP) [Time]on aPTT Coag (Bld) [Time] 39 s High 26-37 [facility] Comment on above: Result Comment: NEW REFERENCE RANGE Performed By: #### C BCA, PINR, 67465-0, CMP #### [facility] ([id number]) [address] [place] [address] 10479 Basic metabolic 2000 panelon 2024 Anion gap [Moles/Vol] 12 mmol/L Normal 8-15 [facility] Comment on above: Order Comment: Speci men Type: BLOOD SPECIMENOrdering Facility: [facility] Address: [address] [place] [address] Performed By: #### 2 4320-2, ####[facility] LABCL[facility] [id number] [place] [address] [place] Calcium [Mass/Vol] 9.4 mg/dL Normal 8.5-10.2 [facility] Comment on above: Order Comment: Speci men Type: BLOOD SPECIMENOrdering Facility: [facility] Address: [address] [place] [address] Performed By: #### 2 4320-2, ####[facility]CL[facility] [id number] [place] [address] [place] Chloride [Moles/Vol] 104 mmol/L Normal 98-107 [facility] Comment on above: Order Comment: Speci men Type: BLOOD SPECIMENOrdering Facility: [facility] Address: [address] [place] [address] Performed By: #### 2 432 ####[facility] [id number] [place] [id number] [place] CO2 [Moles/Vol] 24 mmol/L Normal 22-30 [facility] Comment on above: Order Comment: Speci men Type: BLOOD SPECIMENOrdering Facility: [facility] Address: [address] [place] [address] Performed By: #### 2 4320-10, ####[facility]IA [id number] [place] [id number] [place] Creatinine [Mass/Vol] 1.90 mg/dL High 0.73-1.22 [facility] Comment on above: Order Comment: Speci men Type: BLOOD SPECIMENOrdering Facility: [facility] Address: [address] [place] [address] Performed By: #### 2 4320-10, ####[facility] [id number] [place] [address] [place] Creatinine and Glomerular filtration rate.predicted panel (S/P/Bld) 35 mL/min/1.73m??? Low >=60 [facility] Comment on above: Order Comment: Speci men Type: BLOOD SPECIMENOrdering Facility: [facility] Address: [address] [place] [address] Result Comment: Etta mated Glomerular Filtration Rate [...] reflect actual GFR. Performed By: #### 2 4320-10, ####[facility] [id number] [address] [address] [place] Glucose [Mass/Vol] 90 mg/dL Normal 74-99 [facility] Comment on above: Order Comment: Dylan olvera Type: BLOOD SPECIMENOrdering Facility: [facility] Address: [address] [place] [address] Result Comment: The [place] [employer] (ADA) provides guidance for cutoff values for fasting glucose and random glucose. The ADA defines fasting as no caloric intake for at least 8 hours. Fasting plasma glucose results between 100 to 125 mg/dL indicate increased risk for diabetes (prediabetes).Fasting plasma glucose results greater than or equal to 126 mg/dL meet the criteria for diagnosis of diabetes. In the absence of unequivocal hyperglycemia, results should be confirmed by repeat testing. In a patient with classic symptoms of hyperglycemia or hyperglycemic crisis, random plasma glucose results greater than or equal to 200 mg/dL meet the criteria for diagnosis of diabetes.Reference: Standards of Medical Care in Diabetes 2016, [place] [employer]. Diabetes Care. 2016.39(Suppl 1). Performed By: #### 2 432-, ####[facility] [id number] [place] [address] [place] Potassium [Moles/Vol] 4.0 mmol/L Normal 3.7-5.1 [facility] Comment on above: Order Comment: Dylan olvera Type: BLOOD SPECIMENOrdering Facility: [facility] Address: [address] [place] [address] Performed By: #### 2 4320-10, ####[facility]CL[facility] [id number] [place] [address] [place] Sodium [Moles/Vol] 140 mmol/L Normal 136-144 [facility] Comment on above: Order Comment: Dylan olvera Type: BLOOD SPECIMENOrdering Facility: [facility] Address: [address] [place] [address] Performed By: #### 2 4320-10, ####[facility]CL[facility] [id number] [place] [id number] [place] Urea nitrogen [Mass/Vol] 31 mg/dL High 9-24 [facility] Comment on above: Order Comment: Speci men Type: BLOOD SPECIMENOrdering Facility: [facility] Address: [address] [place] [address] Performed By: #### 2 4321-2, 64808-1 ####[facility]CL[facility] [id number] [place] [address] [place] CBC panel Auto (Bld)on 02-18 Erythrocyte distribution width (RBC) [Ratio] 17.3 % High 11.5-15.0 [facility] Comment on above: Order Comment: Speci men Type: BLOOD SPECIMENOrdering Facility: [facility] Address: [address] [place] [address] Performed By: #### 5 8410-2 ####[facility]IA [id number] [place] [address] [place] Hematocrit (Bld) [Volume fraction] 40.3 % Normal 39.0-51.0 [facility] Comment on above: Order Comment: Speci men Type: BLOOD SPECIMENOrdering Facility: [facility] Address: [address] [place] [address] Performed By: #### 5 8410-2 ####[facility]IA [id number] [place] [address] [place] Hemoglobin (Bld) [Mass/Vol] 12.4 g/dL Low 13.0-17.0 [facility] Comment on above: Order Comment: Speci men Type: BLOOD SPECIMENOrdering Facility: [facility] Address: [address] [place] [address] Performed By: #### 5 8410-2 ####[facility]IA [id number] [place] [address] [place] MCH (RBC) [Entitic mass] 26.9 pg Normal 26.0-34.0 [facility] Comment on above: Order Comment: Speci men Type: BLOOD SPECIMENOrdering Facility: [facility] Address: [address] [place] [address] Performed By: #### 5 8410-2 ####[facility]CL[facility] [id number] [place] [address] [place] MCHC (RBC) [Mass/Vol] 30.8 g/dL Normal 30.5-36.0 [facility] Comment on above: Order Comment: Speci men Type: BLOOD SPECIMENOrdering Facility: [facility] Address: [address] [place] [address] Performed By: #### 5 8410-2 ####[facility] [id number] [place] [address] [place] MCV (RBC) [Entitic vol] 87.4 fL Normal 80.0-100.0 [facility] Comment on above: Order Comment: Speci men Type: BLOOD SPECIMENOrdering Facility: [facility] Address: [address] [place] [address] Performed By: #### 5 8410-2 ####[facility] [id number] [place] [address] [place] Nucleated RBC (Bld) [#/Vol] 10*3/uL Normal <0.01 [facility] Comment on above: Order Comment: Speci men Type: BLOOD SPECIMENOrdering Facility: [facility] Address: [address] [place] [address] Performed By: #### 5 8410-2 ####[facility] LABIA [id number] [place] [address] [place] Platelet mean volume (Bld) [Entitic vol] 10.4 fL Normal 9.0-12.7 [facility] Comment on above: Order Comment: Speci men Type: BLOOD SPECIMENOrdering Facility: [facility] Address: [address] [place] [address] Performed By: #### 5 8410-2 ####[facility] LABCLIA [id number] [place] [id number] [place] Platelets (Bld) [#/Vol] 219 10*3/uL Normal 150-400 [facility] Comment on above: Order Comment: Speci men Type: BLOOD SPECIMENOrdering Facility: [facility] Address: [address] [place] [address] Performed By: #### 5 8410-2 ####[facility] LABIA [id number] [place] [address] [place] RBC (Bld) [#/Vol] 4.61 10*6/uL Normal 4.20-6.00 [facility] Comment on above: Order Comment: Speci men Type: BLOOD SPECIMENOrdering Facility: [facility] Address: [address] [place] [address] Performed By: #### 5 8410-2 ####[facility] LABIA [id number] [place] [address] [place] WBC (Bld) [#/Vol] 7.03 10*3/uL Normal 3.70-11.00 [facility] Comment on above: Order Comment: Speci men Type: BLOOD SPECIMENOrdering Facility: [facility] Address: [address] [place] [address] Performed By: #### 5 8410-2 ####[facility] [id number] [place] [address] [place] CNDSon 2024 CNDS Normal [facility] ECG COMPLETEon 2024 ECG COMPLETE Normal [facility] Magnesium SerPl-mCncon 02-18 Magnesium [Mass/Vol] 2.4 mg/dL High 1.7-2.3 [facility] Comment on above: Order Comment: Speci men Type: BLOOD SPECIMENOrdering Facility: [facility] Address: [address] [place] [address] Performed By: #### 2 4321-2, 08176-2 ####[facility] LABCLIA [id number] [address] [address] [place] PT EDon 2024 PT ED Normal [facility] THERAPY NTon 2024 THERAPY NT Normal [facility] THERAPY NT Normal [facility] ANES POSTPROC EVALon 024 ANES POSTPROC EVAL Normal [facility] ANES PRE-OPon 02-18-2024 ANES PRE-OP Normal [facility] Basic metabolic 2000 panelon 02-18-2024 Anion gap [Moles/Vol] 14 mmol/L Normal 9-18 [facility] Comment on above: Order Comment: Speci men Type: BLOOD SPECIMENOrdering Facility: [facility] Address: [address] [place] [address] Performed By: #### 2 4321-2, ####[facility] LABCLIA [id number] [place] [address] [place] Calcium [Mass/Vol] 9.4 mg/dL Normal 8.5-10.2 [facility] Comment on above: Order Comment: Speci men Type: BLOOD SPECIMENOrdering Facility: [facility] Address: [address] [place] [address] Performed By: #### 2 4321-2, ####[facility] LABCLIA [id number] [place] [address] [place] Chloride [Moles/Vol] 101 mmol/L Normal 97-105 [facility] Comment on above: Order Comment: Speci men Type: BLOOD SPECIMENOrdering Facility: [facility] Address: [address] [place] [address] Performed By: #### 2 4321-2, ####[facility] LABCLIA [id number] [address] [address] [place] CO2 [Moles/Vol] 22 mmol/L Normal 22-30 [facility] Comment on above: Order Comment: Speci men Type: BLOOD SPECIMENOrdering Facility: [facility] Address: [address] [place] [address] Performed By: #### 2 43209-17, ####[facility] LABCLIA [id number] [address] [address] [place] Creatinine [Mass/Vol] 2.02 mg/dL High 0.73-1.22 [facility] Comment on above: Order Comment: Speci men Type: BLOOD SPECIMENOrdering Facility: [facility] Address: [address] [place] [address] Performed By: #### 2 4320-10, ####[facility] LABIA [id number] [place] [address] [place] Creatinine and Glomerular filtration rate.predicted panel (S/P/Bld) 33 mL/min/1.73m??? Low >=60 [facility] Comment on above: Order Comment: Speci men Type: BLOOD SPECIMENOrdering Facility: [facility] Address: [address] [place] [address] Result Comment: Etta mated Glomerular Filtration Rate [...] reflect actual GFR. Performed By: #### 2 43209-17, ####[facility] LABIA [id number] [place] [address] [place] Glucose [Mass/Vol] 90 mg/dL Normal 74-99 [facility] Comment on above: Order Comment: Speci men Type: BLOOD SPECIMENOrdering Facility: [facility] Address: [address] [place] [address] Result Comment: The [place] [employer] (ADA) provides guidance for cutoff values for fasting glucose and random glucose. The ADA defines fasting as no caloric intake for at least 8 hours. Fasting plasma glucose results between 100 to 125 mg/dL indicate increased risk for diabetes (prediabetes).Fasting plasma glucose results greater than or equal to 126 mg/dL meet the criteria for diagnosis of diabetes. In the absence of unequivocal hyperglycemia, results should be confirmed by repeat testing. In a patient with classic symptoms of hyperglycemia or hyperglycemic crisis, random plasma glucose results greater than or equal to 200 mg/dL meet the criteria for diagnosis of diabetes.Reference: Standards of Medical Care in Diabetes 2016, [place] [employer]. Diabetes Care. 2016.39(Suppl 1). Performed By: #### 2 4320-10, ####[facility] LABCLIA [id number] [place] [address] [place] Potassium [Moles/Vol] 3.8 mmol/L Normal 3.7-5.1 [facility] Comment on above: Order Comment: Speci men Type: BLOOD SPECIMENOrdering Facility: [facility] Address: [address] [place] [address] Performed By: #### 2 4320-10, ####[facility] LABCLIA [id number] [place] [address] [place] Sodium [Moles/Vol] 137 mmol/L Normal 136-144 [facility] Comment on above: Order Comment: Speci men Type: BLOOD SPECIMENOrdering Facility: [facility] Address: [address] [place] [address] Performed By: #### 2 4320-10, ####[facility] LABCLIA [id number] [place] [id number] [place] Urea nitrogen [Mass/Vol] 32 mg/dL High 9-24 [facility] Comment on above: Order Comment: Speci men Type: BLOOD SPECIMENOrdering Facility: [facility] Address: [address] [place] [address] Performed By: #### 2 4320-10, ####[facility] LABCLIA [id number] [place] [address] [place] CBC panel Auto (Bld)on 02-17 Erythrocyte distribution width (RBC) [Ratio] 17.0 % High 11.5-15.0 [facility] Comment on above: Order Comment: Speci men Type: BLOOD SPECIMENOrdering Facility: [facility] Address: [address] [place] [address] Performed By: #### 5 8410-2 ####[facility] LABIA [id number] [place] [address] [place] Hematocrit (Bld) [Volume fraction] 39.9 % Normal 39.0-51.0 [facility] Comment on above: Order Comment: Speci men Type: BLOOD SPECIMENOrdering Facility: [facility] Address: [address] [place] [address] Performed By: #### 5 8410-2 ####[facility] [id number] [place] [address] [place] Hemoglobin (Bld) [Mass/Vol] 12.5 g/dL Low 13.0-17.0 [facility] Comment on above: Order Comment: Speci men Type: BLOOD SPECIMENOrdering Facility: [facility] Address: [address] [place] [address] Performed By: #### 5 8410-2 ####[facility] LABIA [id number] [place] [address] [place] MCH (RBC) [Entitic mass] 26.8 pg Normal 26.0-34.0 [facility] Comment on above: Order Comment: Speci men Type: BLOOD SPECIMENOrdering Facility: [facility] Address: [address] [place] [address] Performed By: #### 5 8410-2 ####[facility] LABIA [id number] [place] [address] [place] MCHC (RBC) [Mass/Vol] 31.3 g/dL Normal 30.5-36.0 [facility] Comment on above: Order Comment: Speci men Type: BLOOD SPECIMENOrdering Facility: [facility] Address: [address] [place] [address] Performed By: #### 5 8410-2 ####[facility] LABCLIA [id number] [place] [address] [place] MCV (RBC) [Entitic vol] 85.6 fL Normal 80.0-100.0 [facility] Comment on above: Order Comment: Speci men Type: BLOOD SPECIMENOrdering Facility: [facility] Address: [address] [place] [address] Performed By: #### 5 8410-2 ####[facility] LABCLIA [id number] [place] [address] [place] Nucleated RBC (Bld) [#/Vol] 10*3/uL Normal <0.01 [facility] Comment on above: Order Comment: Speci men Type: BLOOD SPECIMENOrdering Facility: [facility] Address: [address] [place] [address] Performed By: #### 5 8410-2 ####[facility] LABCLIA [id number] [place] [address] [place] Platelet mean volume (Bld) [Entitic vol] 10.7 fL Normal 9.0-12.7 [facility] Comment on above: Order Comment: Speci men Type: BLOOD SPECIMENOrdering Facility: [facility] Address: [address] [place] [address] Performed By: #### 5 8410-2 ####[facility] LABCLIA [id number] [place] [address] [place] Platelets (Bld) [#/Vol] 226 10*3/uL Normal 150-400 [facility] Comment on above: Order Comment: Speci men Type: BLOOD SPECIMENOrdering Facility: [facility] Address: [address] [place] [address] Performed By: #### 5 8410-2 ####[facility] LABCLIA [id number] [place] [address] [place] RBC (Bld) [#/Vol] 4.66 10*6/uL Normal 4.20-6.00 [facility] Comment on above: Order Comment: Speci men Type: BLOOD SPECIMENOrdering Facility: [facility] Address: [address] [place] [address] Performed By: #### 5 8410-2 ####[facility] LABIA [id number] [place] [address] [place] WBC (Bld) [#/Vol] 6.40 10*3/uL Normal 3.70-11.00 [facility] Comment on above: Order Comment: Speci men Type: BLOOD SPECIMENOrdering Facility: [facility] Address: [address] [place] [address] Performed By: #### 5 8410-2 ####[facility]IA [id number] [place] [address] [place] ECG COMPLETEon 02-18-2024 ECG COMPLETE Normal [facility] INTRAOPERATIVE ECHO PREon INTRAOPERATIVE ECHO PRE Normal [facility] Magnesium SerPl-mCncon 02-17 Magnesium [Mass/Vol] 2.6 mg/dL High 1.7-2.3 [facility] Comment on above: Order Comment: Speci men Type: BLOOD SPECIMENOrdering Facility: [facility] Address: [address] [place] [address] Performed By: #### 2 4321-2, 44964-3 ####[facility]IA [id number] [place] [address] [place] PT panel Coag (PPP)on 2023 INR Coag (PPP) [Relative time] 1.2 {INR} Normal 0.9-1.3 [facility] Comment on above: Order Comment: Dylan olvera Type: BLOOD SPECIMENOrdering Facility: [facility] Address: [address] [place] [address] Result Comment: Loulou min K Antagonist (VKA) Therapeutic Range: INR 2 to 3 (Target INR of 2.5)Note: For patients treated with VKA drugs, such as warfarin, the [place] [employer] 2012 Guideline recommends a therapeutic INR range of 2 to 3 (target INR of 2.5). This recommendation includes high-risk patients with antiphospholipid syndrome with previous arterial or venous thromboembolism, current-generation mechanical or bioprosthetic aortic heart valve replacement.Note: Patients with mechanical aortic valve replacement and additional risk factors for thromboembolic events (atrial fibrillation, previous thromboembolism, LV dysfunction, hypercoagulable conditions) or an older generation mechanical AVR (i.e., ball in-Cage) or any mechanical MVR should have a INR therapeutic range of 2.5 to 3.5 (target INR of 3).Olamide GH, et al. Chest 2012, 141:7S-47SNishimura RA, et al. [facility] 2017, 70: 252-289 Performed By: #### 3 4528-0, PTTAC ####[facility] LABIA [id number] [place] [address] [place] PT Coag (PPP) [Time] 13.0 s Normal 9.7-13.0 [facility] Comment on above: Order Comment: Dylan olvera Type: BLOOD SPECIMENOrdering Facility: [facility] Address: [address] [place] [address] Performed By: #### 3 4528-0, PTTAC ####[facility] LABIA [id number] [place] [address] [place] PTT, ANTICOAGULANT THERAPYon 02-18-2024 aPTT Coag (PPP) [Time] 57.8 s High 23.0-32.4 [facility] Comment on above: Order Comment: Dylan olvera Type: BLOOD SPECIMENOrdering Facility: [facility] Address: [address] [place] [address] Performed By: #### 3 4528-0, PTTAC ####[facility] LABCLIA [id number] [address] [address] [place] THERAPY NTon 02-18-2024 THERAPY NT Normal [facility] THERAPY NT Normal [facility] ALLIED HEALTHon 02-17-2024 ALLIED HEALTH HNO ID: [id number] Author: FERMIN MIGUEL Chaplain Service: Spiritual Care Author Type: Bumper Machine Operator Type: Allied Health Filed: 02/17/2024 10:17 Note Text: Accepted anoint.,bless. Normal [facility] Basic metabolic 2000 panelon 02-17-2024 Anion gap [Moles/Vol] 16 mmol/L Normal 9-18 [facility] Comment on above: Order Comment: Speci men Type: BLOOD SPECIMENOrdering Facility: [facility] Address: [address] [place] [address] Performed By: #### 2 2, ####[facility] LABCLIA [id number] [place] [address] [place] Calcium [Mass/Vol] 9.2 mg/dL Normal 8.5-10.2 [facility] Comment on above: Order Comment: Speci men Type: BLOOD SPECIMENOrdering Facility: [facility] Address: [address] [place] [address] Performed By: #### 2 4322, ####[facility] LABCLIA [id number] [address] [address] [place] Chloride [Moles/Vol] 102 mmol/L Normal 97-105 [facility] Comment on above: Order Comment: Speci men Type: BLOOD SPECIMENOrdering Facility: [facility] Address: [address] [place] [id number] Performed By: #### 2 432-2, ####[facility] LABCLIA [id number] [place] [address] [place] CO2 [Moles/Vol] 19 mmol/L Low 22-30 [facility] Comment on above: Order Comment: Speci men Type: BLOOD SPECIMENOrdering Facility: [facility] Address: [address] [place] [address] Performed By: #### 2 432-2, ####[facility] LABCLIA [id number] [place] [address] [place] Creatinine [Mass/Vol] 2.01 mg/dL High 0.73-1.22 [facility] Comment on above: Order Comment: Speci men Type: BLOOD SPECIMENOrdering Facility: [facility] Address: [address] [place] [address] Performed By: #### 2 43209-17, ####[facility] LABCLIA [id number] [place] [address] [place] Creatinine and Glomerular filtration rate.predicted panel (S/P/Bld) 33 mL/min/1.73m??? Low >=60 [facility] Comment on above: Order Comment: Speci men Type: BLOOD SPECIMENOrdering Facility: [facility] Address: [address] [place] [address] Result Comment: Etta mated Glomerular Filtration Rate [...] reflect actual GFR. Performed By: #### 2 4320-10, ####[facility] LABCLIA [id number] [place] [id number] [place] Glucose [Mass/Vol] 100 mg/dL High 74-99 [facility] Comment on above: Order Comment: Speci men Type: BLOOD SPECIMENOrdering Facility: [facility] Address: [address] [place] [address] Result Comment: The [place] [employer] (ADA) provides guidance for cutoff values for fasting glucose and random glucose. The ADA defines fasting as no caloric intake for at least 8 hours. Fasting plasma glucose results between 100 to 125 mg/dL indicate increased risk for diabetes (prediabetes).Fasting plasma glucose results greater than or equal to 126 mg/dL meet the criteria for diagnosis of diabetes. In the absence of unequivocal hyperglycemia, results should be confirmed by repeat testing. In a patient with classic symptoms of hyperglycemia or hyperglycemic crisis, random plasma glucose results greater than or equal to 200 mg/dL meet the criteria for diagnosis of diabetes.Reference: Standards of Medical Care in Diabetes 2016, [place] [employer]. Diabetes Care. 2016.39(Suppl 1). Performed By: #### 2 4320-, ####[facility] LABCLIA [id number] [place] [address] [place] Potassium [Moles/Vol] 4.3 mmol/L Normal 3.7-5.1 [facility] Comment on above: Order Comment: Speci men Type: BLOOD SPECIMENOrdering Facility: [facility] Address: [address] [place] [address] Performed By: #### 2 4320-10, ####[facility]IA [id number] [place] [address] [place] Sodium [Moles/Vol] 137 mmol/L Normal 136-144 [facility] Comment on above: Order Comment: Speci men Type: BLOOD SPECIMENOrdering Facility: [facility] Address: [address] [place] [address] Performed By: #### 2 4320-10, ####[facility] LABCLIA [id number] [place] [address] [place] Urea nitrogen [Mass/Vol] 35 mg/dL High 9-24 [facility] Comment on above: Order Comment: Speci men Type: BLOOD SPECIMENOrdering Facility: [facility] Address: [address] [place] [address] Performed By: #### 2 4321-2, 71322-4 ####[facility]IA [id number] [place] [address] [place] CBC panel Auto (Bld)on 02-16 Erythrocyte distribution width (RBC) [Ratio] 16.8 % High 11.5-15.0 [facility] Comment on above: Order Comment: Speci men Type: BLOOD SPECIMENOrdering Facility: [facility] Address: [address] [place] [address] Performed By: #### 5 8410-2 ####[facility] [id number] [place] [address] [place] Hematocrit (Bld) [Volume fraction] 38.7 % Low 39.0-51.0 [facility] Comment on above: Order Comment: Speci men Type: BLOOD SPECIMENOrdering Facility: [facility] Address: [address] [place] [address] Performed By: #### 5 8410-2 ####[facility] [id number] [place] [address] [place] Hemoglobin (Bld) [Mass/Vol] 11.8 g/dL Low 13.0-17.0 [facility] Comment on above: Order Comment: Speci men Type: BLOOD SPECIMENOrdering Facility: [facility] Address: [address] [place] [address] Performed By: #### 5 8410-2 ####[facility] [id number] [place] [address] [place] MCH (RBC) [Entitic mass] 26.3 pg Normal 26.0-34.0 [facility] Comment on above: Order Comment: Speci men Type: BLOOD SPECIMENOrdering Facility: [facility] Address: [address] [place] [address] Performed By: #### 5 8410-2 ####[facility] [id number] [place] [address] [place] MCHC (RBC) [Mass/Vol] 30.5 g/dL Normal 30.5-36.0 [facility] Comment on above: Order Comment: Speci men Type: BLOOD SPECIMENOrdering Facility: [facility] Address: [address] [place] [address] Performed By: #### 5 8410-2 ####[facility] [id number] [place] [address] [place] MCV (RBC) [Entitic vol] 86.4 fL Normal 80.0-100.0 [facility] Comment on above: Order Comment: Speci men Type: BLOOD SPECIMENOrdering Facility: [facility] Address: [address] [place] [address] Performed By: #### 5 8410-2 ####[facility] [id number] [place] [address] [place] Nucleated RBC (Bld) [#/Vol] 10*3/uL Normal <0.01 [facility] Comment on above: Order Comment: Speci men Type: BLOOD SPECIMENOrdering Facility: [facility] Address: [address] [place] [address] Performed By: #### 5 8410-2 ####[facility] [id number] [place] [address] [place] Platelet mean volume (Bld) [Entitic vol] 10.6 fL Normal 9.0-12.7 [facility] Comment on above: Order Comment: Speci men Type: BLOOD SPECIMENOrdering Facility: [facility] Address: [address] [place] [address] Performed By: #### 5 8410-2 ####[facility] [id number] [place] [address] [place] Platelets (Bld) [#/Vol] 214 10*3/uL Normal 150-400 [facility] Comment on above: Order Comment: Speci men Type: BLOOD SPECIMENOrdering Facility: [facility] Address: [address] [place] [address] Performed By: #### 5 8410-2 ####[facility] LABCLIA [id number] [place] [address] [place] RBC (Bld) [#/Vol] 4.48 10*6/uL Normal 4.20-6.00 [facility] Comment on above: Order Comment: Speci men Type: BLOOD SPECIMENOrdering Facility: [facility] Address: [address] [place] [address] Performed By: #### 5 8410-2 ####[facility]CL[facility] [id number] [place] [address] [place] WBC (Bld) [#/Vol] 6.75 10*3/uL Normal 3.70-11.00 [facility] Comment on above: Order Comment: Speci men Type: BLOOD SPECIMENOrdering Facility: [facility] Address: [address] [place] [address] Performed By: #### 5 8410-2 ####[facility] LABCL[facility] [id number] [place] [address] [place] CNOVon 02-17-2024 CNOV Normal [facility] CONSULTon 02-17-2024 CONSULT Normal [facility] CONSULT Normal [facility] CONSULT PROGon 02-17-2024 CONSULT PROG Normal [facility] ECG COMPLETEon 02-17-2024 ECG COMPLETE Normal [facility] Magnesium SerPl-mCncon 02-16 Magnesium [Mass/Vol] 2.9 mg/dL High 1.7-2.3 [facility] Comment on above: Order Comment: Speci men Type: BLOOD SPECIMENOrdering Facility: [facility] Address: [address] [place] [address] Performed By: #### 2 4321-2, ####[facility] LABCLIA [id number] [place] [id number] [place] NUTRITIONon 02-17-2024 NUTRITION Normal [facility] PTT, ANTICOAGULANT THERAPYon 02-17-2024 aPTT Coag (PPP) [Time] 33.3 s High 23.0-32.4 [facility] Comment on above: Order Comment: Speci men Type: BLOOD SPECIMENOrdering Facility: [facility] Address: [address] [place] [address] Performed By: #### P TTAC ####[facility] LABIA [id number] [place] [address] [place] XR ESOPHAGRAMon 02-17-2024 XR ESOPHAGRAM Normal [facility] Basic metabolic 2000 panelon 02-16-2024 Anion gap [Moles/Vol] 11 mmol/L Normal 9-18 [facility] Comment on above: Order Comment: Speci men Type: BLOOD SPECIMENOrdering Facility: [facility] Address: [address] [place] [address] Performed By: #### 2 4321-2, ####[facility] LABIA [id number] [place] [address] [place] Calcium [Mass/Vol] 9.3 mg/dL Normal 8.5-10.2 [facility] Comment on above: Order Comment: Speci men Type: BLOOD SPECIMENOrdering Facility: [facility] Address: [address] [place] [address] Performed By: #### 2 4321-2, ####[facility] LABIA [id number] [place] [address] [place] Chloride [Moles/Vol] 101 mmol/L Normal 97-105 [facility] Comment on above: Order Comment: Speci men Type: BLOOD SPECIMENOrdering Facility: [facility] Address: [address] [place] [address] Performed By: #### 2 4321-2, ####[facility]CLIA [id number] [place] [id number] [place] CO2 [Moles/Vol] 24 mmol/L Normal 22-30 [facility] Comment on above: Order Comment: Speci men Type: BLOOD SPECIMENOrdering Facility: [facility] Address: [address] [place] [address] Performed By: #### 2 432-2, ####[facility] LABIA [id number] [place] [address] [place] Creatinine [Mass/Vol] 2.13 mg/dL High 0.73-1.22 [facility] Comment on above: Order Comment: Speci men Type: BLOOD SPECIMENOrdering Facility: [facility] Address: [address] [place] [address] Performed By: #### 2 43209-17, ####[facility] LABIA [id number] [place] [address] [place] Creatinine and Glomerular filtration rate.predicted panel (S/P/Bld) 31 mL/min/1.73m??? Low >=60 [facility] Comment on above: Order Comment: Speci men Type: BLOOD SPECIMENOrdering Facility: [facility] Address: [address] [place] [address] Result Comment: Etta mated Glomerular Filtration Rate [...] actual GFR. Performed By: #### 2 4321-2, ####[facility] LABIA [id number] [place] [id number] [place] Glucose [Mass/Vol] 107 mg/dL High 74-99 [facility] Comment on above: Order Comment: Speci men Type: BLOOD SPECIMENOrdering Facility: [facility] Address: [address] [place] [address] Result Comment: The [place] [employer] (ADA) provides guidance for cutoff values for fasting glucose and random glucose. The ADA defines fasting as no caloric intake for at least 8 hours. Fasting plasma glucose results between 100 to 125 mg/dL indicate increased risk for diabetes (prediabetes).Fasting plasma glucose results greater than or equal to 126 mg/dL meet the criteria for diagnosis of diabetes. In the absence of unequivocal hyperglycemia, results should be confirmed by repeat testing. In a patient with classic symptoms of hyperglycemia or hyperglycemic crisis, random plasma glucose results greater than or equal to 200 mg/dL meet the criteria for diagnosis of diabetes.Reference: Standards of Medical Care in Diabetes 2016, [place] [employer]. Diabetes Care. 2016.39(Suppl 1). Performed By: #### 2 4320-10, ####[facility] LABCLIA [id number] [place] [address] [place] Potassium [Moles/Vol] 3.9 mmol/L Normal 3.7-5.1 [facility] Comment on above: Order Comment: Rozi men Type: BLOOD SPECIMENOrdering Facility: [facility] Address: [address] [place] [address] Performed By: #### 2 4320-10, ####[facility] LABCLIA [id number] [place] [address] [place] Sodium [Moles/Vol] 136 mmol/L Normal 136-144 [facility] Comment on above: Order Comment: Speci men Type: BLOOD SPECIMENOrdering Facility: [facility] Address: [address] [place] [address] Performed By: #### 2 4320-10, ####[facility] LABCLIA [id number] [place] [address] [place] Urea nitrogen [Mass/Vol] 35 mg/dL High 9-24 [facility] Comment on above: Order Comment: Speci men Type: BLOOD SPECIMENOrdering Facility: [facility] Address: [address] [place] [address] Performed By: #### 2 4321-2, 17682-0 ####[facility]CLIA [id number] [place] [address] [place] CASE MGT INIT ASSESon 2023 CASE MGT INIT ASSES Normal [facility] CBC W Auto Differential pane l (Bld)on 02-16-2024 Basophils (Bld) [#/Vol] 0.03 10*3/uL Normal <0.11 [facility] Comment on above: Order Comment: Speci men Type: BLOOD SPECIMENOrdering Facility: [facility] Address: [address] [place] [address] Performed By: #### 5 5454-3, 36148-7 ####[facility]CLIA [id number] [place] [address] [place] Basophils/100 WBC (Bld) 0.5 % Normal [facility] Comment on above: Order Comment: Speci men Type: BLOOD SPECIMENOrdering Facility: [facility] Address: [address] [place] [address] Performed By: #### 5 5454-3, 76455-8 ####[facility] LABCLIA [id number] [place] [address] [place] Differential cell count method Nom (Bld) Auto Normal [facility] Comment on above: Order Comment: Speci men Type: BLOOD SPECIMENOrdering Facility: [facility] Address: [address] [place] [address] Performed By: #### 5 5454-3, 02763-1 ####[facility]CLIA [id number] [place] [address] [place] Eosinophils (Bld) [#/Vol] 0.47 10*3/uL High <0.46 [facility] Comment on above: Order Comment: Speci men Type: BLOOD SPECIMENOrdering Facility: [facility] Address: [address] [place] [address] Performed By: #### 5 5454-3, 83816-6 ####[facility] LABCLIA [id number] [place] [address] [place] Eosinophils/100 WBC (Bld) 7.4 % Normal [facility] Comment on above: Order Comment: Speci men Type: BLOOD SPECIMENOrdering Facility: [facility] Address: [address] [place] [address] Performed By: #### 5 5454-3, 40783-1 ####[facility] LABCLIA [id number] [place] [address] [place] Erythrocyte distribution width (RBC) [Ratio] 16.5 % High 11.5-15.0 [facility] Comment on above: Order Comment: Speci men Type: BLOOD SPECIMENOrdering Facility: [facility] Address: [address] [place] [address] Performed By: #### 5 5454-3, 43158-2 ####[facility] LABCLIA [id number] [place] [address] [place] Hematocrit (Bld) [Volume fraction] 37.4 % Low 39.0-51.0 [facility] Comment on above: Order Comment: Speci men Type: BLOOD SPECIMENOrdering Facility: [facility] Address: [address] [place] [address] Performed By: #### 5 5454-3, 11035-5 ####[facility] LABCLIA [id number] [place] [address] [place] Hemoglobin (Bld) [Mass/Vol] 11.7 g/dL Low 13.0-17.0 [facility] Comment on above: Order Comment: Speci men Type: BLOOD SPECIMENOrdering Facility: [facility] Address: [address] [place] [address] Performed By: #### 5 5454-3, 49767-0 ####[facility] LABCLIA [id number] [place] [address] [place] Immature granulocytes (Bld) [#/Vol] 0.03 10*3/uL Normal <0.10 [facility] Comment on above: Order Comment: Speci men Type: BLOOD SPECIMENOrdering Facility: [facility] Address: [address] [place] [address] Performed By: #### 5 5454-3, 01640-9 ####[facility] LABCLIA [id number] [place] [address] [place] Immature granulocytes/100 WBC (Bld) 0.5 % Normal [facility] Comment on above: Order Comment: Speci men Type: BLOOD SPECIMENOrdering Facility: [facility] Address: [address] [place] [address] Performed By: #### 5 5454-3, 76559-9 ####[facility] LABCLIA [id number] [place] [address] [place] Lymphocytes (Bld) [#/Vol] 0.90 10*3/uL Low 1.00-4.00 [facility] Comment on above: Order Comment: Speci men Type: BLOOD SPECIMENOrdering Facility: [facility] Address: [address] [place] [address] Performed By: #### 5 5454-3, 20048-9 ####[facility] LABCLIA [id number] [place] [address] [place] Lymphocytes/100 WBC (Bld) 14.2 % Normal [facility] Comment on above: Order Comment: Speci men Type: BLOOD SPECIMENOrdering Facility: [facility] Address: [address] [place] [address] Performed By: #### 5 5454-3, 74507-1 ####[facility] LABCLIA [id number] [place] [address] [place] MCH (RBC) [Entitic mass] 26.8 pg Normal 26.0-34.0 [facility] Comment on above: Order Comment: Speci men Type: BLOOD SPECIMENOrdering Facility: [facility] Address: [address] [place] [address] Performed By: #### 5 5454-3, 97412-2 ####[facility] LABCLIA [id number] [place] [address] [place] MCHC (RBC) [Mass/Vol] 31.3 g/dL Normal 30.5-36.0 [facility] Comment on above: Order Comment: Speci men Type: BLOOD SPECIMENOrdering Facility: [facility] Address: [address] [place] [address] Performed By: #### 5 5454-3, 73589-3 ####[facility] LABIA [id number] [place] [address] [place] MCV (RBC) [Entitic vol] 85.8 fL Normal 80.0-100.0 [facility] Comment on above: Order Comment: Speci men Type: BLOOD SPECIMENOrdering Facility: [facility] Address: [address] [place] [address] Performed By: #### 5 5454-3, 26444-4 ####[facility] LABIA [id number] [place] [id number] [place] Monocytes (Bld) [#/Vol] 0.64 10*3/uL Normal <0.87 [facility] Comment on above: Order Comment: Speci men Type: BLOOD SPECIMENOrdering Facility: [facility] Address: [address] [place] [address] Performed By: #### 5 5454-3, 63087-1 ####[facility] LABCLIA [id number] [place] [address] [place] Monocytes/100 WBC (Bld) 10.1 % Normal [facility] Comment on above: Order Comment: Speci men Type: BLOOD SPECIMENOrdering Facility: [facility] Address: [address] [place] [address] Performed By: #### 5 5454-3, 50897-0 ####[facility] LABCLIA [id number] [place] [address] [place] Neutrophils (Bld) [#/Vol] 4.28 10*3/uL Normal 1.45-7.50 [facility] Comment on above: Order Comment: Speci men Type: BLOOD SPECIMENOrdering Facility: [facility] Address: [address] [place] [address] Performed By: #### 5 5454-3, 43121-4 ####[facility] LABCLIA [id number] [place] [address] [place] Neutrophils/100 WBC (Bld) 67.3 % Normal [facility] Comment on above: Order Comment: Speci men Type: BLOOD SPECIMENOrdering Facility: [facility] Address: [address] [place] [address] Performed By: #### 5 5454-3, 58263-4 ####[facility] LABCLIA [id number] [place] [address] [place] Nucleated RBC (Bld) [#/Vol] 10*3/uL Normal <0.01 [facility] Comment on above: Order Comment: Speci men Type: BLOOD SPECIMENOrdering Facility: [facility] Address: [address] [place] [address] Performed By: #### 5 5454-3, 64952-0 ####[facility] LABCLIA [id number] [place] [address] [place] Nucleated RBC/100 WBC (Bld) [Ratio] 0.0 /100 WBC Normal [facility] Comment on above: Order Comment: Speci men Type: BLOOD SPECIMENOrdering Facility: [facility] Address: [address] [place] [address] Performed By: #### 5 5454-3, 84817-5 ####[facility] LABCLIA [id number] [place] [address] [place] Platelet mean volume (Bld) [Entitic vol] 10.6 fL Normal 9.0-12.7 [facility] Comment on above: Order Comment: Speci men Type: BLOOD SPECIMENOrdering Facility: [facility] Address: [address] [place] [address] Performed By: #### 5 5454-3, 89413-8 ####[facility] LABCLIA [id number] [place] [address] [place] Platelets (Bld) [#/Vol] 201 10*3/uL Normal 150-400 [facility] Comment on above: Order Comment: Speci men Type: BLOOD SPECIMENOrdering Facility: [facility] Address: [address] [place] [address] Performed By: #### 5 5454-3, 03325-0 ####[facility]CLIA [id number] [place] [address] [place] RBC (Bld) [#/Vol] 4.36 10*6/uL Normal 4.20-6.00 [facility] Comment on above: Order Comment: Speci men Type: BLOOD SPECIMENOrdering Facility: [facility] Address: [address] [place] [address] Performed By: #### 5 5454-3, 01926-4 ####[facility] LABCLIA [id number] [place] [address] [place] WBC (Bld) [#/Vol] 6.35 10*3/uL Normal 3.70-11.00 [facility] Comment on above: Order Comment: Speci men Type: BLOOD SPECIMENOrdering Facility: [facility] Address: [address] [place] [address] Performed By: #### 5 5454-3, 35265-9 ####[facility]CLIA [id number] [address] [address] [place] Comprehensive metabolic 2000 panelon 02-16-2024 Albumin [Mass/Vol] 2.9 g/dL Low 3.9-4.9 [facility] Comment on above: Order Comment: Speci men Type: BLOOD SPECIMENOrdering Facility: [facility] Address: [address] [place] [address] Performed By: #### L IPNF, 6-4, 83584-6, 25665-5, 10152-1 ####[facility] LABCLIA [id number] [place] [address] [place] ALP [Catalytic activity/Vol] 97 U/L Normal 38-113 [facility] Comment on above: Order Comment: Speci men Type: BLOOD SPECIMENOrdering Facility: [facility] Address: [address] [place] [address] Performed By: #### L IPNF, 6-4, 48021-0, 14690-8, 92729-6 ####[facility] LABIA [id number] [place] [address] [place] ALT [Catalytic activity/Vol] 15 U/L Normal 10-54 [facility] Comment on above: Order Comment: Speci men Type: BLOOD SPECIMENOrdering Facility: [facility] Address: [address] [place] [address] Performed By: #### L IPNF, 6-4, 58971-5, 83004-7, 75978-1 ####[facility]CLIA [id number] [address] [address] [place] Anion gap [Moles/Vol] 14 mmol/L Normal 9-18 [facility] Comment on above: Order Comment: Speci men Type: BLOOD SPECIMENOrdering Facility: [facility] Address: [address] [place] [address] Performed By: #### L IPNF, 6-4, 22136-7, 43498-3, 21166-5 ####[facility]CLIA [id number] [place] [address] [place] AST [Catalytic activity/Vol] 30 U/L Normal 14-40 [facility] Comment on above: Order Comment: Speci men Type: BLOOD SPECIMENOrdering Facility: [facility] Address: [address] [place] [address] Result Comment: Resu lts may be falsely increased due to interference from hemolysis. Suggest reorder as clinically indicated. Performed By: #### L IPNF, 6-4, 41240-7, 87918-7, 82303-9 ####[facility] LABCLIA [id number] [place] [address] [place] Bilirubin [Mass/Vol] 0.8 mg/dL Normal 0.2-1.3 [facility] Comment on above: Order Comment: Speci men Type: BLOOD SPECIMENOrdering Facility: [facility] Address: [address] [place] [address] Performed By: #### L IPNF, 6-4, 33458-8, 19426-1, 05068-0 ####[facility]CLIA [id number] [place] [address] [place] Calcium [Mass/Vol] 9.3 mg/dL Normal 8.5-10.2 [facility] Comment on above: Order Comment: Speci men Type: BLOOD SPECIMENOrdering Facility: [facility] Address: [address] [place] [address] Performed By: #### L IPNF, 6-4, 75668-9, 41286-7, 25073-3 ####[facility]CLIA [id number] [place] [address] [place] Chloride [Moles/Vol] 102 mmol/L Normal 97-105 [facility] Comment on above: Order Comment: Speci men Type: BLOOD SPECIMENOrdering Facility: [facility] Address: [address] [place] [address] Performed By: #### L IPNF, 2276-4, 09443-9, 65295-3, 86214-9 ####[facility]CLIA [id number] [place] [address] [place] CO2 [Moles/Vol] 21 mmol/L Low 22-30 [facility] Comment on above: Order Comment: Speci men Type: BLOOD SPECIMENOrdering Facility: [facility] Address: [address] [place] [address] Performed By: #### L IPNF, 6-4, 16269-9, 56412-6, 64357-2 ####[facility]CLIA [id number] [place] [address] [place] Creatinine [Mass/Vol] 2.02 mg/dL High 0.73-1.22 [facility] Comment on above: Order Comment: Speci men Type: BLOOD SPECIMENOrdering Facility: [facility] Address: [address] [place] [address] Performed By: #### L IPNF, 6-4, 97292-6, 35520-4, 58197-4 ####[facility] LABIA [id number] [place] [address] [place] Creatinine and Glomerular filtration rate.predicted panel (S/P/Bld) 33 mL/min/1.73m??? Low >=60 [facility] Comment on above: Order Comment: Speci men Type: BLOOD SPECIMENOrdering Facility: [facility] Address: [address] [place] [address] Result Comment: Etta mated Glomerular Filtration Rate [...] accurately reflect actual GFR. Performed By: #### L SANIYA, 2275-4, 18493-7, 40349-5, 96595-9 ####[facility]CLIA [id number] [address] [address] [place] Glucose [Mass/Vol] 112 mg/dL High 74-99 [facility] Comment on above: Order Comment: Speci men Type: BLOOD SPECIMENOrdering Facility: [facility] Address: [address] [place] [address] Result Comment: The [place] [employer] (ADA) provides guidance for cutoff values for fasting glucose and random glucose. The ADA defines fasting as no caloric intake for at least 8 hours. Fasting plasma glucose results between 100 to 125 mg/dL indicate increased risk for diabetes (prediabetes).Fasting plasma glucose results greater than or equal to 126 mg/dL meet the criteria for diagnosis of diabetes. In the absence of unequivocal hyperglycemia, results should be confirmed by repeat testing. In a patient with classic symptoms of hyperglycemia or hyperglycemic crisis, random plasma glucose results greater than or equal to 200 mg/dL meet the criteria for diagnosis of diabetes.Reference: Standards of Medical Care in Diabetes 2016, [place] [employer]. Diabetes Care. 2016.39(Suppl 1). Performed By: #### L SANIYA, 2275-4, , 52195-9, 82460-5 ####[facility]CL[facility] [id number] [address] [address] [place] Potassium [Moles/Vol] 3.9 mmol/L Normal 3.7-5.1 [facility] Comment on above: Order Comment: Dylan olvera Type: BLOOD SPECIMENOrdering Facility: [facility] Address: [address] [place] [address] Performed By: #### L SANIYA, 2275-4, 66951-4, 17746-7, 00354-4 ####[facility]CL[facility] [id number] [address] [address] [place] Protein [Mass/Vol] 6.3 g/dL Normal 6.3-8.0 [facility] Comment on above: Order Comment: Speci men Type: BLOOD SPECIMENOrdering Facility: [facility] Address: [address] [place] [address] Performed By: #### L IPNF, 2276-4, 21217-5, 03801-7, 49830-1 ####[facility]CL[facility] [id number] [place] [address] [place] Sodium [Moles/Vol] 137 mmol/L Normal 136-144 [facility] Comment on above: Order Comment: Speci men Type: BLOOD SPECIMENOrdering Facility: [facility] Address: [address] [place] [address] Performed By: #### L IPNF, 6-4, 91341-9, 76030-0, 03866-2 ####[facility] LABIA [id number] [place] [id number] [place] Urea nitrogen [Mass/Vol] 37 mg/dL High 9-24 [facility] Comment on above: Order Comment: Speci men Type: BLOOD SPECIMENOrdering Facility: [facility] Address: [address] [place] [address] Performed By: #### L IPNF, 6-4, 12654-2, 11935-2, 03837-3 ####[facility]CL[facility] [id number] [place] [id number] [place] OWK24le 02-16-2024 ECG01 Normal [facility] ECG01 Normal [facility] Ferritin SerPl-mCncon 2023 Ferritin [Mass/Vol] 377.0 ng/mL Normal 30.3-565.7 [facility] Comment on above: Order Comment: Speci men Type: BLOOD SPECIMENOrdering Facility: [facility] Address: [address] [place] [address] Performed By: #### L IPNF, 2276-4, 53478-4, 31155-2, 88316-4 ####[facility]CL[facility] [id number] [place] [address] [place] HISTORY PHYSICALon HISTORY PHYSICAL Normal [facility] HbA1c (Bld)on 02-16-2024 Average glucose Estimated from glycated hemoglobin (Bld) [Mass/Vol] 128 mg/dL Normal [facility] Comment on above: Order Comment: Dylan olvera Type: BLOOD SPECIMENOrdering Facility: [facility] Address: [address] [place] [address] Result Comment: eAG: (Estimated average glucose) is a calculated value from HgbA1c and is accounting representative of the average blood glucose level in the last 2-3 month period. Performed By: #### 5 5454-3, 45800-4 ####[facility]IA [id number] [place] [address] [place] HbA1c (Bld) [Mass fraction] 6.1 % High 4.3-5.6 [facility] Comment on above: Order Comment: Dylan olvera Type: BLOOD SPECIMENOrdering Facility: [facility] Address: [address] [place] [address] Result Comment: [employer] [place] [employer] guidelines indicate that patients with HgbA1c in the range 5.7-6.4% are at increased risk for development of diabetes, and intervention by lifestyle modification may be beneficial. HgbA1c greater or equal to 6.5% is considered diagnostic of diabetes. Performed By: #### 5 5454-3, 49571-3 ####[facility] LABIA [id number] [place] [id number] [place] LIPID PANEL, NONFASTINGon Cholesterol [Mass/Vol] 118 mg/dL Normal <200 [facility] Comment on above: Order Comment: Dylan olvera Type: BLOOD SPECIMENOrdering Facility: [facility] Address: [address] [place] [address] Result Comment: <200 mg/dL, Desirable 200-239 mg/dL, Borderline high>239 mg/dL, High Performed By: #### L IPNF, 6-4, 23393-3, 82161-7, 21903-0 ####[facility] LABCLIA [id number] [place] [address] [place] HDL CHOLESTEROL, NF 28 mg/dL Low >39 [facility] Comment on above: Order Comment: Speci men Type: BLOOD SPECIMENOrdering Facility: [facility] Address: [address] [place] [address] Result Comment: 40-5 9 mg/dL, Acceptable>59 mg/dL, High: Negative risk factor for coronary heart disease<40 mg/dL, Low: Positive risk factor for coronary heart disease Performed By: #### L IPNF, 2275-4, 71123-5, 82407-6, 39970-7 ####[facility] LABCLIA [id number] [place] [address] [place] LDL CHOLESTEROL, NF 75 mg/dL Normal <100 [facility] Comment on above: Order Comment: Speci men Type: BLOOD SPECIMENOrdering Facility: [facility] Address: [address] [place] [address] Result Comment: <100 mg/dL, Optimal 100-129 mg/dL, Near optimal/above optimal 130-159 mg/dL, Borderline high 160-189 mg/dL, High>189 mg/dL, Very highSecondary prevention optimal LDL Cholesterol levels are recommended to be < 70 mg/dL Performed By: #### L IPNF, 2275-4, 89957-4, 01086-9, 32132-4 ####[facility] LABCLIA [id number] [place] [address] [place] LDL/HDL RATIO, NF 2.68 mg/dL High <2.54 [facility] Comment on above: Order Comment: Speci men Type: BLOOD SPECIMENOrdering Facility: [facility] Address: [address] [place] [address] Result Comment: Rukhsana pate:1. National Cholesterol Education Program ATP III Guideline At-A-Glance Quick Desk Reference: National Heart, Lung, and Blood [place]. National Institutes of Health. 2001: NIH Publication No. 01-3305.2. An International Atherosclerosis Society position paper: global recommendations for the management of dyslipidemia: executive summary, Atherosclerosis. 2014: 232(2):410-413. Performed By: #### L IPNF, 6-4, 35695-8, 14152-3, 23983-4 ####[facility] LABCLIA [id number] [place] [address] [place] NON HDL CHOL, NF 90 mg/dL Normal <130 [facility] Comment on above: Order Comment: Speci men Type: BLOOD SPECIMENOrdering Facility: [facility] Address: [address] [place] [address] Result Comment: <130 mg/dL, Optimal 130-159 mg/dL, Near optimal/above optimal 160-189 mg/dL, Borderline high 190-219 mg/dL, High>219 mg/dL, Very highSecondary prevention optimal non HDL Cholesterol levels are recommended to be <100 mg/dL Performed By: #### L IPNF, 6-4, 00467-6, 36416-7, 17389-5 ####[facility] LABCLIA [id number] [place] [address] [place] T CHOL/HDL RATIO NF 4.21 mg/dL Normal <5.10 [facility] Comment on above: Order Comment: Speci men Type: BLOOD SPECIMENOrdering Facility: [facility] Address: [address] [place] [address] Performed By: #### L IPNF, 6-4, 73126-5, 29004-3, 23150-3 ####[facility] LABCLIA [id number] [place] [address] [place] TRIGLYCERIDES, NF 74 mg/dL Normal <150 [facility] Comment on above: Order Comment: Speci men Type: BLOOD SPECIMENOrdering Facility: [facility] Address: [address] [place] [address] Result Comment: <150 mg/dL, Normal 150-199 mg/dL, Borderline high 200-499 mg/dL, High>499 mg/dL, Very high Performed By: #### L IPNF, 2275-4, 16874-7, 43773-3, 10296-9 ####[facility] LABCLIA [id number] [place] [address] [place] VLDL CHOLESTEROL, NF 15 mg/dL Normal <30 [facility] Comment on above: Order Comment: Speci men Type: BLOOD SPECIMENOrdering Facility: [facility] Address: [address] [place] [address] Performed By: #### L IPNF, 4, , 51856-6, 82092-3 ####[facility] LABCLIA [id number] [place] [address] [place] Magnesium SerPl-mCncon 02-15 Magnesium [Mass/Vol] 2.5 mg/dL High 1.7-2.3 [facility] Comment on above: Order Comment: Speci men Type: BLOOD SPECIMENOrdering Facility: [facility] Address: [address] [place] [address] Performed By: #### 2 4321-2, ####[facility] LABCLIA [id number] [place] [address] [place] Magnesium [Mass/Vol] 2.5 mg/dL High 1.7-2.3 [facility] Comment on above: Order Comment: Speci men Type: BLOOD SPECIMENOrdering Facility: [facility] Address: [address] [place] [address] Performed By: #### L IPNF, 2275-4, 28263-4, 41015-4, 21188-0 ####[facility] LABCLIA [id number] [place] [address] [place] [facility] Natriuretic peptide.B prohormone N-Terminal [Mass/Vol] 47618 pg/mL High <450 [facility] Comment on above: Order Comment: Speci men Type: BLOOD SPECIMENOrdering Facility: [facility] Address: [address] [place] [address] Performed By: #### L IPNF, 2276-4, 45523-2, 05423-4, 98961-5 ####[facility] LABCLIA [id number] [place] [address] [place] PT EDon 02-16-2024 PT ED Normal [facility] TYPE + SCREENon 02-16-2024 ABO O Normal [facility] Comment on above: Order Comment: Speci men Type: BLOOD SPECIMENOrdering Facility: [facility] Address: [address] [place] [address] Performed By: #### T SCR ####[facility] BLOOD BANKIA [id number] [address] [place] HISTORICAL AB SCR STATUS Negative Normal [facility] Comment on above: Order Comment: Speci men Type: BLOOD SPECIMENOrdering Facility: [facility] Address: [address] [place] [address] Performed By: #### T SCR ####[facility] BLO[facility] BANKCLIA [id number] [place] [address] [place] Rh Nom (Bld) Positive Normal [facility] Comment on above: Order Comment: Speci men Type: BLOOD SPECIMENOrdering Facility: [facility] Address: [address] [place] [address] Performed By: #### T SCR ####[facility] BLOOD BANKIA [id number] [place] [address] [place] TYPE AND SCREEN EXPIRATION 2024 23:59 Normal [facility] Comment on above: Order Comment: Speci men Type: BLOOD SPECIMENOrdering Facility: [facility] Address: [address] [place] [address] Performed By: #### T SCR ####[facility] BLOOD BANKCLIA [id number] [place] [address] [place] XR CHEST 1V FRONTAL PORTon 0 02-15-2024 XR CHEST 1V FRONTAL PORT Normal [facility] 25(OH)D3 SerPl-mCncon 2023 25-hydroxyvitamin D3 [Mass/Vol] 65.1 ng/mL Normal 31.0-80.0 [facility] Comment on above: Order Comment: Speci men Type: BLOOD SPECIMENOrdering Facility: [facility] Address: [address] [place] [address] Result Comment: Clas sification of 25 [place] Vitamin D status:Deficiency/Insufficiency: < or = 30 ng/ml.Sufficiency/Optimal Levels: 31-80 ng/mLToxicity: > 100 ng/mL.Test performed by chemiluminescent immunoassay. Performed By: #### 1 989-3 ####[facility] LABCLIA [id number] [place] [address] [place] CBC W Auto Differential pane l (Bld)on 02-13-2024 Basophils (Bld) [#/Vol] 0.07 10*3/uL Normal <0.11 [facility] Comment on above: Order Comment: Speci men Type: BLOOD SPECIMENOrdering Facility: [facility] Address: [address] [place] [id number] Performed By: #### 5 7021-8 ####VIANNEY [facility] LABCLIA [id number] [place] [address] Basophils/100 WBC (Bld) 0.8 % Normal [facility] Comment on above: Order Comment: Speci men Type: BLOOD SPECIMENOrdering Facility: [facility] Address: [address] [place] [address] Performed By: #### 5 7021-8 ####[facility] LABCLIA [id number] [place] [address] Differential cell count method Nom (Bld) Auto Normal [facility] Comment on above: Order Comment: Speci men Type: BLOOD SPECIMENOrdering Facility: [facility] Address: [address] [place] [address] Performed By: #### 5 7021-8 ####[facility] LABCLIA [id number] [place] [address] Eosinophils (Bld) [#/Vol] 0.40 10*3/uL Normal <0.46 [facility] Comment on above: Order Comment: Speci men Type: BLOOD SPECIMENOrdering Facility: [facility] Address: [address] [place] [address] Performed By: #### 5 7021-8 ####[facility] LABCLIA [id number] [place] [address] Eosinophils/100 WBC (Bld) 4.7 % Normal [facility] Comment on above: Order Comment: Speci men Type: BLOOD SPECIMENOrdering Facility: [facility] Address: [address] [place] [address] Performed By: #### 5 7021-8 ####[facility] LABCLIA [id number] [place] [address] Erythrocyte distribution width (RBC) [Ratio] 16.6 % High 11.5-15.0 [facility] Comment on above: Order Comment: Speci men Type: BLOOD SPECIMENOrdering Facility: [facility] Address: [address] [place] [address] Performed By: #### 5 7021-8 ####[facility] LABCLIA [id number] [place] [address] Hematocrit (Bld) [Volume fraction] 42.2 % Normal 39.0-51.0 [facility] Comment on above: Order Comment: Speci men Type: BLOOD SPECIMENOrdering Facility: [facility] Address: [address] [place] [address] Performed By: #### 5 7021-8 ####[facility] LABCLIA [id number] [place] [address] Hemoglobin (Bld) [Mass/Vol] 13.1 g/dL Normal 13.0-17.0 [facility] Comment on above: Order Comment: Speci men Type: BLOOD SPECIMENOrdering Facility: [facility] Address: [address] [place] [address] Performed By: #### 5 7021-8 ####[facility] LABCLIA [id number] [place] [address] Immature granulocytes (Bld) [#/Vol] 0.04 10*3/uL Normal <0.10 [facility] Comment on above: Order Comment: Speci men Type: BLOOD SPECIMENOrdering Facility: [facility] Address: [address] [place] [address] Performed By: #### 5 7021-8 ####[facility]URGM[facility]HAEL [facility] LABCLIA [id number] [place] [address] Immature granulocytes/100 WBC (Bld) 0.5 % Normal [facility] Comment on above: Order Comment: Speci men Type: BLOOD SPECIMENOrdering Facility: [facility] Address: [address] [place] [address] Performed By: #### 5 7021-8 ####[facility] LABCLIA [id number] [place] [address] Lymphocytes (Bld) [#/Vol] 0.93 10*3/uL Low 1.00-4.00 [facility] Comment on above: Order Comment: Speci men Type: BLOOD SPECIMENOrdering Facility: [facility] Address: [address] [place] [address] Performed By: #### 5 7021-8 ####[facility] LABCLIA [id number] [place] [address] Lymphocytes/100 WBC (Bld) 10.8 % Normal [facility] Comment on above: Order Comment: Speci men Type: BLOOD SPECIMENOrdering Facility: [facility] Address: [address] [place] [address] Performed By: #### 5 7021-8 ####[facility] LABCLIA [id number] [place] [address] MCH (RBC) [Entitic mass] 27.0 pg Normal 26.0-34.0 [facility] Comment on above: Order Comment: Speci men Type: BLOOD SPECIMENOrdering Facility: [facility] Address: [address] [place] [address] Performed By: #### 5 7021-8 ####[facility] LABCLIA [id number] [place] [address] MCHC (RBC) [Mass/Vol] 31.0 g/dL Normal 30.5-36.0 [facility] Comment on above: Order Comment: Speci men Type: BLOOD SPECIMENOrdering Facility: [facility] Address: [address] [place] [address] Performed By: #### 5 7021-8 ####[facility] LABCLIA [id number] [place] [address] MCV (RBC) [Entitic vol] 86.8 fL Normal 80.0-100.0 [facility] Comment on above: Order Comment: Speci men Type: BLOOD SPECIMENOrdering Facility: [facility] Address: [address] [place] [address] Performed By: #### 5 7021-8 ####[facility] LABCLIA [id number] [place] [address] Monocytes (Bld) [#/Vol] 0.84 10*3/uL Normal <0.87 [facility] Comment on above: Order Comment: Speci men Type: BLOOD SPECIMENOrdering Facility: [facility] Address: [facility] [place] [address] Performed By: #### 5 7021-8 ####[facility] LABCLIA [id number] [place] [address] Monocytes/100 WBC (Bld) 9.8 % Normal [facility] Comment on above: Order Comment: Speci men Type: BLOOD SPECIMENOrdering Facility: [facility] Address: [address] [place] [address] Performed By: #### 5 7021-8 ####[facility] LABCLIA [id number] [place] [address] Neutrophils (Bld) [#/Vol] 6.31 10*3/uL Normal 1.45-7.50 [facility] Comment on above: Order Comment: Speci men Type: BLOOD SPECIMENOrdering Facility: [facility] Address: [address] [place] [address] Performed By: #### 5 7021-8 ####[facility] LABCLIA [id number] [place] [address] Neutrophils/100 WBC (Bld) 73.4 % Normal [facility] Comment on above: Order Comment: Speci men Type: BLOOD SPECIMENOrdering Facility: [facility] Address: [address] [place] [address] Performed By: #### 5 7021-8 ####[facility] LABCLIA [id number] [place] [address] Nucleated RBC (Bld) [#/Vol] 10*3/uL Normal <0.01 [facility] Comment on above: Order Comment: Speci men Type: BLOOD SPECIMENOrdering Facility: [facility] Address: [address] [place] [address] Performed By: #### 5 7021-8 ####[facility] LABCLIA [id number] [place] [address] Nucleated RBC/100 WBC (Bld) [Ratio] 0.0 /100 WBC Normal [facility] Comment on above: Order Comment: Speci men Type: BLOOD SPECIMENOrdering Facility: [facility] Address: [address] [place] [address] Performed By: #### 5 7021-8 ####[facility] LABCLIA [id number] [place] [address] Platelet mean volume (Bld) [Entitic vol] 10.2 fL Normal 9.0-12.7 [facility] Comment on above: Order Comment: Speci men Type: BLOOD SPECIMENOrdering Facility: [facility] Address: [address] [place] [address] Performed By: #### 5 7021-8 ####[facility] LABCLIA [id number] [place] [address] Platelets (Bld) [#/Vol] 218 10*3/uL Normal 150-400 [facility] Comment on above: Order Comment: Speci men Type: BLOOD SPECIMENOrdering Facility: [facility] Address: [address] [place] [address] Performed By: #### 5 7021-8 ####[facility] LABCLIA [id number] [place] [address] RBC (Bld) [#/Vol] 4.86 10*6/uL Normal 4.20-6.00 [facility] Comment on above: Order Comment: Speci men Type: BLOOD SPECIMENOrdering Facility: [facility] Address: [address] [place] [address] Performed By: #### 5 7021-8 ####[facility] LABCLIA [id number] [place] [address] WBC (Bld) [#/Vol] 8.59 10*3/uL Normal 3.70-11.00 [facility] Comment on above: Order Comment: Speci men Type: BLOOD SPECIMENOrdering Facility: [facility] Address: [facility] [place] [address] Performed By: #### 5 7021-8 ####[facility] LABCLIA [id number] [place] [address] Comprehensive metabolic 2000 panelon 02-13-2024 Albumin [Mass/Vol] 3.4 g/dL Low 3.9-4.9 [facility] Comment on above: Order Comment: Speci men Type: BLOOD SPECIMENOrdering Facility: [facility] Address: [facility] [place] [address] Performed By: #### 2 4323-8 ####[facility] LABCLIA [id number] [place] [address] ALP [Catalytic activity/Vol] 115 U/L High 38-113 [facility] Comment on above: Order Comment: Speci men Type: BLOOD SPECIMENOrdering Facility: [facility] Address: [address] [place] [address] Performed By: #### 2 4323-8 ####[facility] LABCLIA [id number] [place] [address] ALT [Catalytic activity/Vol] 11 U/L Normal 10-54 [facility] Comment on above: Order Comment: Speci men Type: BLOOD SPECIMENOrdering Facility: [facility] Address: [address] [place] [address] Performed By: #### 2 4323-8 ####[facility] LABCLIA [id number] [place] [address] Anion gap [Moles/Vol] 9 mmol/L Normal 9-18 [facility] Comment on above: Order Comment: Speci men Type: BLOOD SPECIMENOrdering Facility: [facility] Address: [address] [place] [address] Performed By: #### 2 4323-8 ####[facility] LABCLIA [id number] [place] [address] AST [Catalytic activity/Vol] 19 U/L Normal 14-40 [facility] Comment on above: Order Comment: Speci men Type: BLOOD SPECIMENOrdering Facility: [facility] Address: [address] [place] [address] Performed By: #### 2 4323-8 ####[facility] LABCLIA [id number] [place] [address] Bilirubin [Mass/Vol] 0.9 mg/dL Normal 0.2-1.3 [facility] Comment on above: Order Comment: Speci men Type: BLOOD SPECIMENOrdering Facility: [facility] Address: [address] [place] [address] Performed By: #### 2 4323-8 ####[facility] LABCLIA [id number] [place] [address] Calcium [Mass/Vol] 9.9 mg/dL Normal 8.5-10.2 [facility] Comment on above: Order Comment: Speci men Type: BLOOD SPECIMENOrdering Facility: [facility] Address: [address] [place] [address] Performed By: #### 2 4323-8 ####[facility] LABCLIA [id number] [place] [address] Chloride [Moles/Vol] 99 mmol/L Normal 97-105 [facility] Comment on above: Order Comment: Speci men Type: BLOOD SPECIMENOrdering Facility: [facility] Address: [address] [place] [address] Performed By: #### 2 4323-8 ####[facility] LABCLIA [id number] [place] [address] CO2 [Moles/Vol] 27 mmol/L Normal 22-30 [facility] Comment on above: Order Comment: Speci men Type: BLOOD SPECIMENOrdering Facility: [facility] Address: [address] [place] [address] Performed By: #### 2 4323-8 ####[facility] LABCLIA [id number] [place] [address] Creatinine [Mass/Vol] 2.23 mg/dL High 0.73-1.22 [facility] Comment on above: Order Comment: Dylan olvera Type: BLOOD SPECIMENOrdering Facility: [facility] Address: [address] [place] [address] Performed By: #### 2 4323-8 ####[facility] LABCLIA [id number] [place] [address] Creatinine and Glomerular filtration rate.predicted panel (S/P/Bld) 29 mL/min/1.73m??? Low >=60 [facility] Comment on above: Order Comment: Dylan olvera Type: BLOOD SPECIMENOrdering Facility: [facility] Address: [address] [place] [address] Result Comment: Etta mated Glomerular Filtration Rate [...] actual GFR. Performed By: #### 2 4323-8 ####[facility] LABCLIA [id number] [place] [address] Glucose [Mass/Vol] 130 mg/dL High 74-99 [facility] Comment on above: Order Comment: Dylan olvera Type: BLOOD SPECIMENOrdering Facility: [facility] Address: [address] [place] [address] Result Comment: The [place] [employer] (ADA) provides guidance for cutoff values for fasting glucose and random glucose. The ADA defines fasting as no caloric intake for at least 8 hours. Fasting plasma glucose results between 100 to 125 mg/dL indicate increased risk for diabetes (prediabetes).Fasting plasma glucose results greater than or equal to 126 mg/dL meet the criteria for diagnosis of diabetes. In the absence of unequivocal hyperglycemia, results should be confirmed by repeat testing. In a patient with classic symptoms of hyperglycemia or hyperglycemic crisis, random plasma glucose results greater than or equal to 200 mg/dL meet the criteria for diagnosis of diabetes.Reference: Standards of Medical Care in Diabetes 2016, [place] [employer]. Diabetes Care. 2016.39(Suppl 1). Performed By: #### 2 4323-8 ####[facility] LABCLIA [id number] [place] [address] Potassium [Moles/Vol] 4.0 mmol/L Normal 3.7-5.1 [facility] Comment on above: Order Comment: Speci men Type: BLOOD SPECIMENOrdering Facility: [facility] Address: [address] [place], [place] [address] Performed By: #### 2 4323-8 ####[facility] LABCLIA [id number] [place] [address] Protein [Mass/Vol] 7.3 g/dL Normal 6.3-8.0 [facility] Comment on above: Order Comment: Speci men Type: BLOOD SPECIMENOrdering Facility: [facility] Address: [address] [place] [address] Performed By: #### 2 4323-8 ####[facility] LABCLIA [id number] [place] [address] Sodium [Moles/Vol] 135 mmol/L Low 136-144 [facility] Comment on above: Order Comment: Speci men Type: BLOOD SPECIMENOrdering Facility: [facility] Address: [address] [place], [place] [address] Performed By: #### 2 4323-8 ####[facility] LABCLIA [id number] [place] [address] Urea nitrogen [Mass/Vol] 37 mg/dL High 9-24 [facility] Comment on above: Order Comment: Speci men Type: BLOOD SPECIMENOrdering Facility: [facility] Address: [address] [place] [address] Performed By: #### 2 4323-8 ####[facility] LABCLIA [id number] [place] [address] Iron and Iron binding capaci panel 02-13-2024 Iron [Mass/Vol] 21 ug/dL Low 41-186 [facility] Comment on above: Order Comment: Speci men Type: BLOOD SPECIMENOrdering Facility: [facility] Address: [address] [place] [address] Performed By: #### 3 051-0, 3024-7, 39137-4, 41429-5 ####[facility] LABCLIA [id number] [place] [address] [place] Iron binding capacity [Mass/Vol] 202 ug/dL Low 232-386 [facility] Comment on above: Order Comment: Speci men Type: BLOOD SPECIMENOrdering Facility: [facility] Address: [address] [place] [address] Performed By: #### 3 051-0, 3024-7, 56802-7, 35184-6 ####[facility] LABIA [id number] [place] [id number] [place] Iron/TIBC [Molar ratio] 10.4 % Low 15.0-57.0 [facility] Comment on above: Order Comment: Speci men Type: BLOOD SPECIMENOrdering Facility: [facility] Address: [address] [place], [place] [address] Performed By: #### 3 051-0, 3024-7, 74199-3, 94494-4 ####[facility] LABIA [id number] [address] [address] [place] NT-proBNP [facility] [place] 02-12 Natriuretic peptide.B prohormone N-Terminal [Mass/Vol] 13225 pg/mL High <450 [facility] Comment on above: Order Comment: Speci men Type: BLOOD SPECIMENOrdering Facility: [facility] Address: [facility] [place] [id number] Performed By: #### 3 051-0, 3024-7, 93384-6, 23588-8 ####[facility] LABCLIA [id number] [place] [id number] [place] T3Free SerPl-mCncon 20 24 Free T3 [Mass/Vol] 3.2 pg/mL Normal 2.3-4.1 [facility] Comment on above: Order Comment: Speci men Type: BLOOD SPECIMENOrdering Facility: [facility] Address: [address] [place] [address] Performed By: #### 3 051-0, 3024-7, 84501-2, 94453-3 ####[facility] LABCLIA [id number] [place] [address] [place] T4 Free SerPl-mCncon 2 024 Free T4 [Mass/Vol] 1.2 ng/dL Normal 0.9-1.7 [facility] Comment on above: Order Comment: Speci men Type: BLOOD SPECIMENOrdering Facility: [facility] Address: [address] [place] [address] Performed By: #### 3 051-0, 3024-7, 28267-0, 41756-2 ####[facility] LABIA [id number] [place] [id number] [place] TSH SerPl-aCncon 02-13-2024 TSH Qn 0.207 m[IU]/L Low 0.270-4.200 [facility] Comment on above: Order Comment: Speci men Type: BLOOD SPECIMENOrdering Facility: [facility] Address: [address] [place] [address] Performed By: #### 3 016-3 ####[facility] LABCLIA [id number] [place] [id number] [place] CNPNon 02-12-2024 CNPN Normal [facility] CNPNon 02-11-2024 CNPN Normal [facility] Basic metabolic 2000 panelon 02-05-2024 Anion gap [Moles/Vol] 16 mmol/L 9 - 18 mmol/L [facility] Calcium [Mass/Vol] 9.6 mg/dL 8.5 - 10. 2 mg/dL [facility] Chloride [Moles/Vol] 95 mmol/L Low 97 - 105 mmol/L [facility] CO2 [Moles/Vol] 24 mmol/L 22 - 30 mmol/L [facility] Creatinine [Mass/Vol] 2.50 mg/dL High 0.73 - 1.22 mg/dL [facility] GFR/1.73 sq M.predicted among non-blacks MDRD (S/P/Bld) [Vol rate/Area] 25 mL/min/{1.73_m2} Low - PINF [facility] Comment on above: Estimated Glomerular Filtration [...] 103 mg/dL High 74 - 99 mg/dL [facility] Comment on above: The [place] Di[employer] (ADA) provides guidance for [...] Standards of Medical Care in Diabetes 2016, [place] [employer]. Diabetes Care. 2016.39(Suppl 1). Potassium [Moles/Vol] 3.5 mmol/L Low 3.7 - 5.1 mmol/L [facility] Sodium [Moles/Vol] 135 mmol/L Low 136 - 144 mmol/L [facility] Urea nitrogen [Mass/Vol] 43 mg/dL High 9 - 24 mg/dL [facility] Anion gap [Moles/Vol] 16 mmol/L Normal 9-18 [facility] Comment on above: Order Comment: Speci men Type: BLOOD SPECIMENOrdering Facility: [facility] Address: [address] [place] [address] Performed By: #### 2 4321-2, 63255-9 ####[facility] LABCLIA [id number] [place] [address] [place] Calcium [Mass/Vol] 9.6 mg/dL Normal 8.5-10.2 [facility] Comment on above: Order Comment: Speci men Type: BLOOD SPECIMENOrdering Facility: [facility] Address: [address] [place] [address] Performed By: #### 2 4321-2, 91599-0 ####[facility] LABCLIA [id number] [place] [address] [place] Chloride [Moles/Vol] 95 mmol/L Low 97-105 [facility] Comment on above: Order Comment: Speci men Type: BLOOD SPECIMENOrdering Facility: [facility] Address: [address] [place] [address] Performed By: #### 2 4321-2, 00062-5 ####[facility] LABCLIA [id number] [place] [address] [place] CO2 [Moles/Vol] 24 mmol/L Normal 22-30 [facility] Comment on above: Order Comment: Speci men Type: BLOOD SPECIMENOrdering Facility: [facility] Address: [address] [place] [address] Performed By: #### 2 4321-2, 35445-5 ####[facility] LABCLIA [id number] [place] [id number] [place] Creatinine [Mass/Vol] 2.50 mg/dL High 0.73-1.22 [facility] Comment on above: Order Comment: Speci men Type: BLOOD SPECIMENOrdering Facility: [facility] Address: [address] [place] [address] Performed By: #### 2 4321-2, 32963-0 ####[facility] LABIA [id number] [place] [address] [place] Creatinine and Glomerular filtration rate.predicted panel (S/P/Bld) 25 mL/min/1.73m??? Low >=60 [facility] Comment on above: Order Comment: Dylan olvera Type: BLOOD SPECIMENOrdering Facility: [facility] Address: [address] [place] [address] Result Comment: Etta mated Glomerular Filtration Rate [...] actual GFR. Performed By: #### 2 4321-2, 13895-8 ####[facility] LABIA [id number] [place] [address] [place] Glucose [Mass/Vol] 103 mg/dL High 74-99 [facility] Comment on above: Order Comment: Dylan may Type: BLOOD SPECIMENOrdering Facility: [facility] Address: [address] [place] [address] Result Comment: The [place] Diabetes [employer] (ADA) provides guidance for cutoff values for fasting glucose and random glucose. The ADA defines fasting as no caloric intake for at least 8 hours. Fasting plasma glucose results between 100 to 125 mg/dL indicate increased risk for diabetes (prediabetes).Fasting plasma glucose results greater than or equal to 126 mg/dL meet the criteria for diagnosis of diabetes. In the absence of unequivocal hyperglycemia, results should be confirmed by repeat testing. In a patient with classic symptoms of hyperglycemia or hyperglycemic crisis, random plasma glucose results greater than or equal to 200 mg/dL meet the criteria for diagnosis of diabetes.Reference: Standards of Medical Care in Diabetes 2016, [place] [employer]. Diabetes Care. 2016.39(Suppl 1). Performed By: #### 2 4321-2, 73838-0 ####[facility] LABCLIA [id number] [place] [address] [place] Potassium [Moles/Vol] 3.5 mmol/L Low 3.7-5.1 [facility] Comment on above: Order Comment: Speci men Type: BLOOD SPECIMENOrdering Facility: [facility] Address: [address] [place] [address] Performed By: #### 2 4321-2, 38564-8 ####[facility] LABIA [id number] [place] [address] [place] Sodium [Moles/Vol] 135 mmol/L Low 136-144 [facility] Comment on above: Order Comment: Speci men Type: BLOOD SPECIMENOrdering Facility: [facility] Address: [address] [place] [address] Performed By: #### 2 4321-2, 30086-9 ####[facility] LABIA [id number] [place] [address] [place] Urea nitrogen [Mass/Vol] 43 mg/dL High 9-24 [facility] Comment on above: Order Comment: Speci men Type: BLOOD SPECIMENOrdering Facility: [facility] Address: [address] [place] [address] Performed By: #### 2 4321-2, 16975-3 ####[facility] LABIA [id number] [place] [address] [place] CBC W Auto Differential pane l (Bld)on 02-05-2024 Basophils (Bld) [#/Vol] 0.04 10*3/uL [facility] Basophils/100 WBC (Bld) 0.5 % [facility] Differential cell count method Nom (Bld) Auto [facility] Eosinophils (Bld) [#/Vol] 0.41 10*3/uL [facility] Eosinophils/100 WBC (Bld) 5.5 % [facility] Erythrocyte distribution width (RBC) [Ratio] 16.2 % High 11.5 - 15.0 % [facility] Hematocrit (Bld) [Volume fraction] 40.2 % 39.0 - 51.0 % [facility] Hemoglobin (Bld) [Mass/Vol] 12.4 g/dL Low 13.0 - 17.0 g/dL [facility] Immature granulocytes (Bld) [#/Vol] 0.04 10*3/[facility] Immature granulocytes/100 WBC (Bld) 0.5 % [facility] Interpretation and review of laboratory results Abnormal [facility] Lymphocytes (Bld) [#/Vol] 1.20 10*3/uL [facility] Lymphocytes/100 WBC (Bld) 16.0 % [facility] MCH (RBC) [Entitic mass] 27.0 pg 26.0 - 34.0 pg [facility] MCHC (RBC) [Mass/Vol] 30.8 g/dL 30.5 - 36.0 g/dL [facility] MCV (RBC) [Entitic vol] 87.6 fL 80.0 - 100.0 fL [facility] Monocytes (Bld) [#/Vol] 0.82 10*3/uL [facility] Monocytes/100 WBC (Bld) 10.9 % [facility] Neutrophils (Bld) [#/Vol] 5.00 10*3/uL [facility] Neutrophils/100 WBC (Bld) 66.6 % [facility] Nucleated RBC (Bld) [#/Vol] [facility] Nucleated RBC/100 WBC (Bld) [Ratio] 0.0 % /100 WBC [facility] Platelet mean volume (Bld) [Entitic vol] 10.4 fL 9.0 - 12.7 fL [facility] Platelets (Bld) [#/Vol] 224 10*3/uL [facility] RBC (Bld) [#/Vol] 4.59 10*6/uL 4.20 - 6.0 0 m/uL [facility] WBC (Bld) [#/Vol] 7.51 10*3/uL [facility] Basophils (Bld) [#/Vol] 0.04 10*3/uL Normal <0.11 [facility] Comment on above: Order Comment: Speci men Type: BLOOD SPECIMENOrdering Facility: [facility] Address: [address] [place] [address] Performed By: #### 5 7021-8 ####[facility] LABCLIA [id number] [place] [address] [place] Basophils/100 WBC (Bld) 0.5 % Normal [facility] Comment on above: Order Comment: Speci men Type: BLOOD SPECIMENOrdering Facility: [facility] Address: [address] [place] [address] Performed By: #### 5 7021-8 ####[facility] LABCLIA [id number] [place] [address] [place] Differential cell count method Nom (Bld) Auto Normal [facility] Comment on above: Order Comment: Speci men Type: BLOOD SPECIMENOrdering Facility: [facility] Address: [address] [place] [address] Performed By: #### 5 7021-8 ####[facility] LABCLIA [id number] [place] [address] [place] Eosinophils (Bld) [#/Vol] 0.41 10*3/uL Normal <0.46 [facility] Comment on above: Order Comment: Speci men Type: BLOOD SPECIMENOrdering Facility: [facility] Address: [address] [place] [address] Performed By: #### 5 7021-8 ####[facility] LABCLIA [id number] [place] [address] [place] Eosinophils/100 WBC (Bld) 5.5 % Normal [facility] Comment on above: Order Comment: Speci men Type: BLOOD SPECIMENOrdering Facility: [facility] Address: [address] [place] [address] Performed By: #### 5 7021-8 ####[facility] LABCLIA [id number] [place] [address] [place] Erythrocyte distribution width (RBC) [Ratio] 16.2 % High 11.5-15.0 [facility] Comment on above: Order Comment: Speci men Type: BLOOD SPECIMENOrdering Facility: [facility] Address: [address] [place] [address] Performed By: #### 5 7021-8 ####[facility] LABIA [id number] [place] [address] [place] Hematocrit (Bld) [Volume fraction] 40.2 % Normal 39.0-51.0 [facility] Comment on above: Order Comment: Speci men Type: BLOOD SPECIMENOrdering Facility: [facility] Address: [address] [place] [address] Performed By: #### 5 7021-8 ####[facility] LABIA [id number] [place] [address] [place] Hemoglobin (Bld) [Mass/Vol] 12.4 g/dL Low 13.0-17.0 [facility] Comment on above: Order Comment: Speci men Type: BLOOD SPECIMENOrdering Facility: [facility] Address: [address] [place] [address] Performed By: #### 5 7021-8 ####[facility] LABIA [id number] [place] [address] [place] Immature granulocytes (Bld) [#/Vol] 0.04 10*3/uL Normal <0.10 [facility] Comment on above: Order Comment: Speci men Type: BLOOD SPECIMENOrdering Facility: [facility] Address: [address] [place] [address] Performed By: #### 5 7021-8 ####[facility] LABCLIA [id number] [place] [address] [place] Immature granulocytes/100 WBC (Bld) 0.5 % Normal [facility] Comment on above: Order Comment: Speci men Type: BLOOD SPECIMENOrdering Facility: [facility] Address: [address] [place] [address] Performed By: #### 5 7021-8 ####[facility] LABCLIA [id number] [place] [address] [place] Lymphocytes (Bld) [#/Vol] 1.20 10*3/uL Normal 1.00-4.00 [facility] Comment on above: Order Comment: Speci men Type: BLOOD SPECIMENOrdering Facility: [facility] Address: [address] [place] [address] Performed By: #### 5 7021-8 ####[facility] LABCLIA [id number] [place] [address] [place] Lymphocytes/100 WBC (Bld) 16.0 % Normal [facility] Comment on above: Order Comment: Speci men Type: BLOOD SPECIMENOrdering Facility: [facility] Address: [address] [place] [address] Performed By: #### 5 7021-8 ####[facility] LABCLIA [id number] [place] [address] [place] MCH (RBC) [Entitic mass] 27.0 pg Normal 26.0-34.0 [facility] Comment on above: Order Comment: Speci men Type: BLOOD SPECIMENOrdering Facility: [facility] Address: [address] [place] [address] Performed By: #### 5 7021-8 ####[facility] LABCLIA [id number] [place] [address] [place] MCHC (RBC) [Mass/Vol] 30.8 g/dL Normal 30.5-36.0 [facility] Comment on above: Order Comment: Speci men Type: BLOOD SPECIMENOrdering Facility: [facility] Address: [address] [place] [address] Performed By: #### 5 7021-8 ####[facility] LABCLIA [id number] [place] [address] [place] MCV (RBC) [Entitic vol] 87.6 fL Normal 80.0-100.0 [facility] Comment on above: Order Comment: Speci men Type: BLOOD SPECIMENOrdering Facility: [facility] Address: [address] [place] [address] Performed By: #### 5 7021-8 ####[facility] LABCLIA [id number] [place] [address] [place] Monocytes (Bld) [#/Vol] 0.82 10*3/uL Normal <0.87 [facility] Comment on above: Order Comment: Speci men Type: BLOOD SPECIMENOrdering Facility: [facility] Address: [address] [place] [address] Performed By: #### 5 7021-8 ####[facility] LABCLIA [id number] [place] [address] [place] Monocytes/100 WBC (Bld) 10.9 % Normal [facility] Comment on above: Order Comment: Speci men Type: BLOOD SPECIMENOrdering Facility: [facility] Address: [address] [place] [address] Performed By: #### 5 7021-8 ####[facility] LABCLIA [id number] [place] [address] [place] Neutrophils (Bld) [#/Vol] 5.00 10*3/uL Normal 1.45-7.50 [facility] Comment on above: Order Comment: Speci men Type: BLOOD SPECIMENOrdering Facility: [facility] Address: [address] [place] [address] Performed By: #### 5 7021-8 ####[facility] LABCLIA [id number] [place] [address] [place] Neutrophils/100 WBC (Bld) 66.6 % Normal [facility] Comment on above: Order Comment: Speci men Type: BLOOD SPECIMENOrdering Facility: [facility] Address: [address] [place] [address] Performed By: #### 5 7021-8 ####[facility] LABIA [id number] [place] [address] [place] Nucleated RBC (Bld) [#/Vol] 10*3/uL Normal <0.01 [facility] Comment on above: Order Comment: Speci men Type: BLOOD SPECIMENOrdering Facility: [facility] Address: [address] [place] [address] Performed By: #### 5 7021-8 ####[facility] LABIA [id number] [place] [address] [place] Nucleated RBC/100 WBC (Bld) [Ratio] 0.0 /100 WBC Normal [facility] Comment on above: Order Comment: Speci men Type: BLOOD SPECIMENOrdering Facility: [facility] Address: [address] [place] [address] Performed By: #### 5 7021-8 ####[facility] LABIA [id number] [place] [address] [place] Platelet mean volume (Bld) [Entitic vol] 10.4 fL Normal 9.0-12.7 [facility] Comment on above: Order Comment: Speci men Type: BLOOD SPECIMENOrdering Facility: [facility] Address: [address] [place] [address] Performed By: #### 5 7021-8 ####[facility] LABIA [id number] [place] [address] [place] Platelets (Bld) [#/Vol] 224 10*3/uL Normal 150-400 [facility] Comment on above: Order Comment: Speci men Type: BLOOD SPECIMENOrdering Facility: [facility] Address: [address] [place] [address] Performed By: #### 5 7021-8 ####[facility] LABCLIA [id number] [place] [address] [place] RBC (Bld) [#/Vol] 4.59 10*6/uL Normal 4.20-6.00 [facility] Comment on above: Order Comment: Speci men Type: BLOOD SPECIMENOrdering Facility: [facility] Address: [address] [place] [address] Performed By: #### 5 7021-8 ####[facility] LABCLIA [id number] [place] [address] [place] WBC (Bld) [#/Vol] 7.51 10*3/uL Normal 3.70-11.00 [facility] Comment on above: Order Comment: Speci men Type: BLOOD SPECIMENOrdering Facility: [facility] Address: [address] [place] [address] Performed By: #### 5 7021-8 ####[facility] LABIA [id number] [place] [address] [place] CNNURSEon 02-05-2024 CNNURSE Normal [facility] ECG COMPLETEon 02-05-2024 ECG COMPLETE Normal [facility] NT PRO BNPon 02-05-2024 Natriuretic peptide.B prohormone N-Terminal [Mass/Vol] 01750 pg/mL High NINF - 450 pg/mL [facility] NT-proBNP SerPl-mCncon 02-04 Natriuretic peptide.B prohormone N-Terminal [Mass/Vol] 31594 pg/mL High <450 [facility] Comment on above: Order Comment: Speci men Type: BLOOD SPECIMENOrdering Facility: [facility] Address: [address] [place] [address] Performed By: #### 2 4321-2, 36216-6 ####[facility] LABCLIA [id number] [place] [address] [place] No Panel Informationon 02-04 Interpretation and review of laboratory results Abnormal [facility] CNNURSEon 01-30-2024 CNNURSE Normal [facility] CNPNon 01-14-2024 CNPN Normal [facility] CNNURSEon 01-10-2024 CNNURSE Normal [facility] CNOVon 01-10-2024 CNOV Normal [facility] Comprehensive metabolic 2000 panelon 01-10-2024 Albumin [Mass/Vol] 3.7 g/dL Low 3.9 - 4.9 g/dL [facility] ALP [Catalytic activity/Vol] 109 U/L 38 - 113 U/L [facility] ALT [Catalytic activity/Vol] 10 U/L 10 - 54 U/L [facility] Anion gap [Moles/Vol] 14 mmol/L 9 - 18 mmol/L [facility] AST [Catalytic activity/Vol] 20 U/L 14 - 40 U/L [facility] Bilirubin [Mass/Vol] 1.1 mg/dL 0.2 - 1.3 mg/dL [facility] Calcium [Mass/Vol] 9.8 mg/dL 8.5 - 10. 2 mg/dL [facility] Chloride [Moles/Vol] 95 mmol/L Low 97 - 105 mmol/L [facility] CO2 [Moles/Vol] 25 mmol/L 22 - 30 mmol/L [facility] Creatinine [Mass/Vol] 2.50 mg/dL High 0.73 - 1.22 mg/dL [facility] GFR/1.73 sq M.predicted among non-blacks MDRD (S/P/Bld) [Vol rate/Area] 25 mL/min/{1.73_m2} Low - PINF [facility] Comment on above: Estimated Glomerular Filtration [...] 105 mg/dL High 74 - 99 mg/dL [facility] Comment on above: The [place] [employer] (ADA) provides guidance for [...] Standards of Medical Care in Diabetes 2016, [place] [employer]. Diabetes Care. 2016.39(Suppl 1). Potassium [Moles/Vol] 3.9 mmol/L 3.7 - 5.1 mmol/L [facility] Protein [Mass/Vol] 7.2 g/dL 6.3 - 8.0 g/dL [facility] Sodium [Moles/Vol] 134 mmol/L Low 136 - 144 mmol/L [facility] Urea nitrogen [Mass/Vol] 44 mg/dL High 9 - 24 mg/dL [facility] Albumin [Mass/Vol] 3.7 g/dL Low 3.9-4.9 [facility] Comment on above: Order Comment: Speci men Type: BLOOD SPECIMENOrdering Facility: [facility] Address: [address] [place] [address] Performed By: #### 3 3762-6, 66865-0 ####[facility] LABIA [id number] [place] [address] [place] ALP [Catalytic activity/Vol] 109 U/L Normal 38-113 [facility] Comment on above: Order Comment: Speci men Type: BLOOD SPECIMENOrdering Facility: [facility] Address: [address] [place] [address] Performed By: #### 3 3762-6, 27533-4 ####[facility] LABIA [id number] [place] [address] [place] ALT [Catalytic activity/Vol] 10 U/L Normal 10-54 [facility] Comment on above: Order Comment: Speci men Type: BLOOD SPECIMENOrdering Facility: [facility] Address: [address] [place] [address] Performed By: #### 3 3762-6, 64715-6 ####[facility] LABCLIA [id number] [facility] [address] [address] [place] Anion gap [Moles/Vol] 14 mmol/L Normal 9-18 [facility] Comment on above: Order Comment: Speci men Type: BLOOD SPECIMENOrdering Facility: [facility] Address: [address] [place] [address] Performed By: #### 3 3762-6, ####[facility] LABCLIA [id number] [facility] [place] [address] [place] AST [Catalytic activity/Vol] 20 U/L Normal 14-40 [facility] Comment on above: Order Comment: Speci men Type: BLOOD SPECIMENOrdering Facility: [facility] Address: [address] [place] [address] Performed By: #### 3 376-6, ####[facility] LABCLIA [id number] [facility] [place] [address] [place] Bilirubin [Mass/Vol] 1.1 mg/dL Normal 0.2-1.3 [facility] Comment on above: Order Comment: Speci men Type: BLOOD SPECIMENOrdering Facility: [facility] Address: [address] [place] [address] Performed By: #### 3 3762-6, ####[facility] LABCLIA [id number] [facility] [place] [address] [place] Calcium [Mass/Vol] 9.8 mg/dL Normal 8.5-10.2 [facility] Comment on above: Order Comment: Speci men Type: BLOOD SPECIMENOrdering Facility: [facility] Address: [address] [place] [address] Performed By: #### 3 3762-6, 83451-4 ####[facility] LABCLIA [id number] [place] [address] [place] Chloride [Moles/Vol] 95 mmol/L Low 97-105 [facility] Comment on above: Order Comment: Speci men Type: BLOOD SPECIMENOrdering Facility: [facility] Address: [address] [place] [address] Performed By: #### 3 3762-6, 46683-9 ####[facility] LABIA [id number] [place] [place] [address] [place] CO2 [Moles/Vol] 25 mmol/L Normal 22-30 [facility] Comment on above: Order Comment: Speci men Type: BLOOD SPECIMENOrdering Facility: [facility] Address: [address] [place] [address] Performed By: #### 3 3762-6, 43008-3 ####[facility] LABCLIA [id number] [place] [address] [place] Creatinine [Mass/Vol] 2.50 mg/dL High 0.73-1.22 [facility] Comment on above: Order Comment: Speci men Type: BLOOD SPECIMENOrdering Facility: [facility] Address: [address] [place] [address] Performed By: #### 3 3762-6, 85698-9 ####[facility] LABIA [id number] [address] STATES OF [facility] Creatinine and Glomerular filtration rate.predicted panel (S/P/Bld) 25 mL/min/1.73m??? Low >=60 [facility] Comment on above: Order Comment: Speci men Type: BLOOD SPECIMENOrdering Facility: [facility] Address: [address] [place] [address] Result Comment: Etta mated Glomerular Filtration Rate [...] actual GFR. Performed By: #### 3 3762-6, 33687-3 ####[facility] LABCLIA [id number] [place] [address] [place] Glucose [Mass/Vol] 105 mg/dL High 74-99 [facility] Comment on above: Order Comment: Dylan olvera Type: BLOOD SPECIMENOrdering Facility: [facility] Address: [address] [place] [address] Result Comment: The [place] [employer] (ADA) provides guidance for cutoff values for fasting glucose and random glucose. The ADA defines fasting as no caloric intake for at least 8 hours. Fasting plasma glucose results between 100 to 125 mg/dL indicate increased risk for diabetes (prediabetes).Fasting plasma glucose results greater than or equal to 126 mg/dL meet the criteria for diagnosis of diabetes. In the absence of unequivocal hyperglycemia, results should be confirmed by repeat testing. In a patient with classic symptoms of hyperglycemia or hyperglycemic crisis, random plasma glucose results greater than or equal to 200 mg/dL meet the criteria for diagnosis of diabetes.Reference: Standards of Medical Care in Diabetes 2016, [place] [employer]. Diabetes Care. 2016.39(Suppl 1). Performed By: #### 3 3762-6, 00258-5 ####[facility] LABIA [id number] [place] [address] [place] Potassium [Moles/Vol] 3.9 mmol/L Normal 3.7-5.1 [facility] Comment on above: Order Comment: Dylan olvera Type: BLOOD SPECIMENOrdering Facility: [facility] Address: [address] [place] [address] Performed By: #### 3 3762-6, 20603-0 ####[facility] LABIA [id number] [place] [address] [place] Protein [Mass/Vol] 7.2 g/dL Normal 6.3-8.0 [facility] Comment on above: Order Comment: Dylan olvera Type: BLOOD SPECIMENOrdering Facility: [facility] Address: [address] [place] [address] Performed By: #### 3 3762-6, ####[facility] LABCLIA [id number] [place] [address] [place] Sodium [Moles/Vol] 134 mmol/L Low 136-144 [facility] Comment on above: Order Comment: Speci men Type: BLOOD SPECIMENOrdering Facility: [facility] Address: [address] [place] [address] Performed By: #### 3 3762-6, ####[facility] LABCLIA [id number] [place] [address] [place] Urea nitrogen [Mass/Vol] 44 mg/dL High 9-24 [facility] Comment on above: Order Comment: Speci men Type: BLOOD SPECIMENOrdering Facility: [facility] Address: [address] [place] [address] Performed By: #### 3 3762-6, ####[facility] LABCLIA [id number] [place] [address] [place] NT PRO BNPon 01-10-2024 Natriuretic peptide.B prohormone N-Terminal [Mass/Vol] 97048 pg/mL High NINF - 450 pg/mL [facility] NT-proBNP SerPl-ncon 01-09 Natriuretic peptide.B prohormone N-Terminal [Mass/Vol] 28592 pg/mL High <450 [facility] Comment on above: Order Comment: Speci men Type: BLOOD SPECIMENOrdering Facility: [facility] Address: [address] [place] [address] Performed By: #### 3 3762-6, ####[facility] LABCLIA [id number] [place] [address] [place] No Panel Informationon 01-09 Interpretation and review of laboratory results Abnormal [facility] CNNURSEon 01-02-2024 CNNURSE Normal [facility] CNPNon 01-02-2024 CNPN Normal [facility] CNNURSEon 01-01-2024 CNNURSE Normal [facility] CNNURSEon 12-30-2023 CNNURSE Normal [facility] CNOVon 12-26-2023 CNOV Normal [facility] Follow-Upon 12-25-2023 Follow-Up Normal [facility] ICD REMOTE CHECKon AV Delay Adaptive Paced Minimum (ms) 200 ms [facility] AV Delay Adaptive Sensed Minimum (ms) 170 ms [facility] Bj RA Pacing Amplitude (volts) 2.0 V [facility] Bj RA Pacing Polarity BI [facility] Bj RA Pacing Pulse Width (ms) 0.5 ms [facility] Bj RA Sensing Amplitude (mvolts) 0.25 mV [facility] Bj RA Sensing Polarity BI [facility] Bj RV Pacing Amplitude (volts) 2.0 V [facility] Bj RV Pacing Polarity BI [facility] Bj RV Pacing Pulse Width (ms) 0.5 ms [facility] Bj RV Sensing Amplitude (mvolts) 0.3 mV [facility] Bj RV Sensing Polarity BI [facility] Detection Configuration (Vent) 2 - Zone [facility] FastVT_Detection Interval 250 ms [facility] FastVT_Therapy Configuration 1 ATP(s) + 8 Shock(s) [facility] ICD FastVT DetectionStatus ENABLED [facility] ICD-AMS EPISODES 170 {beats}/min [facility] ICD-ATP Episodes (Vent) 1 [facility] ICD-ATRIALFIBRILLAT ION 9 [facility] ICD-ATRIALTACHYCARD IA 9 [facility] ICD-ATRIALTACHYCARD IA 2 [facility] ICD-ATRIALTACHYCARD IA 1 [facility] ICD-Device Mfg BSX [facility] ICD-Fast Ventricular Tachycardia 2 [facility] ICD-Fast Ventricular Tachycardia 1 [facility] ICD-Fast Ventricular Tachycardia 0 [facility] ICD-LEADIMPEDANCEAT RIAL 767 ohm [facility] ICD-Percent Pacing (Atrial) 0 % [facility] ICD-Percent Pacing (Vent) 0 % [facility] ICD-Shocks Aborted (Vent) 0 [facility] [id number] D 0 [facility] ICD-SHOCKSABORTED 0 [facility] ICD-SHOCKSDELIVERED VENTRICULAR 0 [facility] ICD-Ventricular Fibrillation 0 [facility] Lead Impedance (RV) 437 ohm [facility] Lead Impedance High Voltage 51 ohm [facility] Lead1 Mfg BSX [facility] Lead2 Mfg BSX [facility] Location RV [facility] Location RA [facility] Lower Rate (bpm) 50 {beats}/min [facility] Max Sensor Rate (bpm) 130 {beats}/min [facility] MDT_PROG_TACHY_ZONE _DETECTIONS_STATUS ENABLED [facility] Model D142 INOGEN [facility] Model [place] [place] 4-Front [facility] Model 7741 Ingevity MRI [facility] Pacing Mode DDDR [facility] Serial Number [id number] [facility] Serial Number [id number] [facility] Serial Number [id number] [facility] Test Charge Energy 23 J [facility] Test Charge Time 10.3 s [facility] Therapy Status (Vent) Enabled [facility] Thresh RA Capture Amplitude (volts) 0.9 V [facility] Thresh RA Capture Duration (ms) 0.5 ms [facility] Thresh RV Capture Amplitude (VOLTS) 0.4 V [facility] Thresh RV Capture Duration (MS) 0.5 ms [facility] Tracking Rate (bpm) 130 {beats}/min [facility] VF Zone Detection Interval 250 ms [facility] VF Zone Therapy Configuration 1 ATP(s) + 8 Shock(s) [facility] No Panel Informationon 12-22 BLANK _ [facility] ICD-ATRIALTACHYCARD IA 0 [facility] Implant Date 03/24/2019 [facility] CNPNon 12-17-2023 CNPN Normal [facility] NT PRO BNPon 12-13-2023 Natriuretic peptide.B prohormone N-Terminal [Mass/Vol] 76906 pg/mL High <450 pg/mL [facility] CNOVon 12-12-2023 CNOV Normal [facility] Comprehensive metabolic 2000 panelon 12-12-2023 Albumin [Mass/Vol] 4.0 g/dL Normal 3.9-4.9 [facility] Comment on above: Order Comment: Speci men Type: BLOOD SPECIMENOrdering Facility: [facility] Address: [address] [place], [place] [address] Performed By: #### 3 3376-6, ####[facility] LABCLIA [id number] [place] [address] [place] ALP [Catalytic activity/Vol] 118 U/L High 38-113 [facility] Comment on above: Order Comment: Speci men Type: BLOOD SPECIMENOrdering Facility: [facility] Address: [address] [place] [address] Performed By: #### 3 376-6, ####[facility] LABCLIA [id number] [place] [address] [place] ALT [Catalytic activity/Vol] 14 U/L Normal 10-54 [facility] Comment on above: Order Comment: Speci men Type: BLOOD SPECIMENOrdering Facility: [facility] Address: [address] [place] [address] Performed By: #### 3 376-6, ####[facility] LABIA [id number] [place] [address] [place] Anion gap [Moles/Vol] 18 mmol/L Normal 9-18 [facility] Comment on above: Order Comment: Speci men Type: BLOOD SPECIMENOrdering Facility: [facility] Address: [address] [place] [address] Performed By: #### 3 3762-6, ####[facility] LABCLIA [id number] [place] [address] [place] AST [Catalytic activity/Vol] 26 U/L Normal 14-40 [facility] Comment on above: Order Comment: Speci men Type: BLOOD SPECIMENOrdering Facility: [facility] Address: [address] [place] [address] Performed By: #### 3 3762-6, ####[facility] LABCLIA [id number] [place] [address] [place] Bilirubin [Mass/Vol] 0.7 mg/dL Normal 0.2-1.3 [facility] Comment on above: Order Comment: Speci men Type: BLOOD SPECIMENOrdering Facility: [facility] Address: [address] [place] [address] Performed By: #### 3 3762-6, ####[facility] LABCLIA [id number] [place] [address] [place] Calcium [Mass/Vol] 10.1 mg/dL Normal 8.5-10.2 [facility] Comment on above: Order Comment: Speci men Type: BLOOD SPECIMENOrdering Facility: [facility] Address: [address] [place] [address] Performed By: #### 3 3762-6, ####[facility] LABCLIA [id number] [place] [address] [place] Chloride [Moles/Vol] 97 mmol/L Normal 97-105 [facility] Comment on above: Order Comment: Speci men Type: BLOOD SPECIMENOrdering Facility: [facility] Address: [address] [place] [address] Performed By: #### 3 3762-6, ####[facility] LABCLIA [id number] [place] [address] [place] CO2 [Moles/Vol] 25 mmol/L Normal 22-30 [facility] Comment on above: Order Comment: Speci men Type: BLOOD SPECIMENOrdering Facility: [facility] Address: [address] [place] [address] Performed By: #### 3 3762-6, ####[facility] LABCLIA [id number] [place] [address] [place] Creatinine [Mass/Vol] 2.32 mg/dL High 0.73-1.22 [facility] Comment on above: Order Comment: Speci men Type: BLOOD SPECIMENOrdering Facility: [facility] Address: [address] [place] [address] Performed By: #### 3 3762-6, 11162-1 ####[facility] LABIA [id number] [place] [address] [place] Creatinine and Glomerular filtration rate.predicted panel (S/P/Bld) 28 mL/min/1.73m??? Low >=60 [facility] Comment on above: Order Comment: Dylan olvera Type: BLOOD SPECIMENOrdering Facility: [facility] Address: [address] [place] [address] Result Comment: Etta mated Glomerular Filtration Rate [...] actual GFR. Performed By: #### 3 3762-6, 90098-0 ####[facility] LABCLIA [id number] [place] [address] [place] Glucose [Mass/Vol] 93 mg/dL Normal 74-99 [facility] Comment on above: Order Comment: Dylan olvera Type: BLOOD SPECIMENOrdering Facility: [facility] Address: [address] [place] [address] Result Comment: The [place] [employer] (ADA) provides guidance for cutoff values for fasting glucose and random glucose. The ADA defines fasting as no caloric intake for at least 8 hours. Fasting plasma glucose results between 100 to 125 mg/dL indicate increased risk for diabetes (prediabetes).Fasting plasma glucose results greater than or equal to 126 mg/dL meet the criteria for diagnosis of diabetes. In the absence of unequivocal hyperglycemia, results should be confirmed by repeat testing. In a patient with classic symptoms of hyperglycemia or hyperglycemic crisis, random plasma glucose results greater than or equal to 200 mg/dL meet the criteria for diagnosis of diabetes.Reference: Standards of Medical Care in Diabetes 2016, [place] [employer]. Diabetes Care. 2016.39(Suppl 1). Performed By: #### 3 3762-6, ####[facility] LABCLIA [id number] [place] [address] [place] Potassium [Moles/Vol] 4.1 mmol/L Normal 3.7-5.1 [facility] Comment on above: Order Comment: Speci men Type: BLOOD SPECIMENOrdering Facility: [facility] Address: [address] [place] [address] Performed By: #### 3 3762-6, ####[facility] LABCLIA [id number] [place] [address] [place] Protein [Mass/Vol] 7.4 g/dL Normal 6.3-8.0 [facility] Comment on above: Order Comment: Speci men Type: BLOOD SPECIMENOrdering Facility: [facility] Address: [address] [place] [address] Performed By: #### 3 376-6, ####[facility] LABCLIA [id number] [place] [address] [place] Sodium [Moles/Vol] 140 mmol/L Normal 136-144 [facility] Comment on above: Order Comment: Speci men Type: BLOOD SPECIMENOrdering Facility: [facility] Address: [address] [place] [address] Performed By: #### 3 3762-6, ####[facility] LABCLIA [id number] [place] [address] [place] Urea nitrogen [Mass/Vol] 40 mg/dL High 9-24 [facility] Comment on above: Order Comment: Speci men Type: BLOOD SPECIMENOrdering Facility: [facility] Address: [address] [place] [address] Performed By: #### 3 3762-6, ####[facility] LABCLIA [id number] [address] [address] [place] ECG COMPLETEon 12-12-2023 ECG COMPLETE Normal [facility] NT-proBNP SerPl-mCncon 12-11 Natriuretic peptide.B prohormone N-Terminal [Mass/Vol] 53334 pg/mL High <450 [facility] Comment on above: Order Comment: Speci men Type: BLOOD SPECIMENOrdering Facility: [facility] Address: [address] [place] [address] Performed By: #### 3 3762-6, 96854-0 ####[facility] LABCLIA [id number] [place] [id number] [facility] ICD REMOTE CHECKon 4 AV Delay Adaptive Paced Minimum (ms) 200 ms [facility] AV Delay Adaptive Sensed Minimum (ms) 170 ms [facility] Bj RA Pacing Amplitude (volts) 2.0 V [facility] Bj RA Pacing Polarity BI [facility] Bj RA Pacing Pulse Width (ms) 0.5 ms [facility] Bj RA Sensing Amplitude (mvolts) 0.25 mV [facility] Bj RA Sensing Polarity BI [facility] Bj RV Pacing Amplitude (volts) 2.0 V [facility] Bj RV Pacing Polarity BI [facility] Bj RV Pacing Pulse Width (ms) 0.5 ms [facility] Bj RV Sensing Amplitude (mvolts) 0.3 mV [facility] Bj RV Sensing Polarity BI [facility] Detection Configuration (Vent) 2 - Zone [facility] FastVT_Detection Interval 250 ms [facility] FastVT_Therapy Configuration 1 ATP(s) + 8 Shock(s) [facility] ICD FastVT DetectionStatus ENABLED [facility] ICD-AMS EPISODES 170 {beats}/min [facility] ICD-ATP Episodes (Vent) 0 [facility] ICD-ATRIALFIBRILLAT ION 7 [facility] ICD-ATRIALTACHYCARD IA 7 [facility] ICD-ATRIALTACHYCARD IA 2 [facility] ICD-Device Mfg BSX [facility] ICD-Fast Ventricular Tachycardia 2 [facility] ICD-LEADIMPEDANCEAT RIAL 827 ohm [facility] ICD-Percent Pacing (Atrial) 0 % [facility] ICD-Percent Pacing (Vent) 0 % [facility] ICD-Shocks Aborted (Vent) 0 [facility] [id number] D 0 [facility] ICD-SHOCKSABORTED 0 [facility] ICD-SHOCKSDELIVERED VENTRICULAR 0 [facility] ICD-Ventricular Fibrillation 0 [facility] Lead Impedance (RV) 468 ohm [facility] Lead Impedance High Voltage 60 ohm [facility] Lead1 Mfg BSX [facility] Lead2 Mfg BSX [facility] Location RV [facility] Location RA [facility] Lower Rate (bpm) 50 {beats}/min [facility] Max Sensor Rate (bpm) 130 {beats}/min [facility] MDT_PROG_TACHY_ZONE _DETECTIONS_STATUS ENABLED [facility] Model D142 INOGEN [facility] Model [place] [place] 4-Front [facility] Model 7741 Ingevity MRI [facility] Pacing Mode DDDR [facility] Serial Number [id number] [facility] Serial Number [id number] [facility] Serial Number [id number] [facility] Test Charge Energy 23 J [facility] Test Charge Time 10.3 s [facility] Therapy Status (Vent) Enabled [facility] Thresh RA Capture Amplitude (volts) 0.9 V [facility] Thresh RA Capture Duration (ms) 0.5 ms [facility] Thresh RV Capture Amplitude (VOLTS) 0.4 V [facility] Thresh RV Capture Duration (MS) 0.5 ms [facility] Tracking Rate (bpm) 130 {beats}/min [facility] VF Zone Detection Interval 250 ms [facility] VF Zone Therapy Configuration 1 ATP(s) + 8 Shock(s) [facility] No Panel Informationon 12-03 BLANK _ [facility] ICD-ATRIALTACHYCARD IA 0 [facility] ICD-Fast Ventricular Tachycardia 0 [facility] Implant Date 03/24/2019 [facility] 36on 11-26-2023 36 DC to home on 024 Spoke to pt on 11/26/23 Med rec completed with pt Pt aware of follow up appt in [place] on 12/02/23, pt has transportation Normal [facility] CNPNon 11-26-2023 CNPN Normal [facility] BASIC METABOLIC PANELon 11-14 Anion gap [Moles/Vol] 15 mmol/L Normal -20 [facility] Comment on above: Performed By: #### L AB15 ####[email or web address] ([facility]AKER)[address] [place] [address] Calcium [Mass/Vol] 9.7 mg/dL Normal 8.6-10.3 [facility] Comment on above: Performed By: #### L AB15 ####[facility] (BEAKER)[address] [place] [address] Chloride [Moles/Vol] 98 mmol/L Normal 98-107 [facility] Comment on above: Performed By: #### L AB15 ####[facility] (BEAKER)[address] [place] [address] CO2 [Moles/Vol] 26 mmol/L Normal 21-31 [facility] Comment on above: Performed By: #### L AB15 ####[facility] ([facility] [place] [address] Creatinine [Mass/Vol] 2.09 mg/dL High 0.70-1.30 [facility] Comment on above: Performed By: #### L AB15 ####[facility] ([facility] [place] [address] GLOMERULAR FILTRATION RATE ML/MIN/1.73 SQ M.PREDICTED 31.2 mL/min/1.73m*2 Low >60.0 [facility] Comment on above: Result Comment: [facility]???s estimated glomerular filtration rate (eGFR) will no [...] of individuals. Performed By: #### L [id number] ####[facility] (BEAKER)[address] [place] [address] Glucose [Mass/Vol] 86 mg/dL Normal 70-100 [facility] Comment on above: Performed By: #### L [id number] ####[facility] ([facility])[address] [place] [address] Potassium [Moles/Vol] 3.7 mmol/L Normal 3.5-5.1 [facility] Comment on above: Performed By: #### L [id number] ####[facility] ([facility])[address] [place] [address] Sodium [Moles/Vol] 135 mmol/L Low 136-145 [facility] Comment on above: Performed By: #### L [id number] ####[facility] ([facility])[address] [place] [address] Urea nitrogen [Mass/Vol] 53 mg/dL High 7-25 [facility] Comment on above: Performed By: #### L [id number] ####[facility] ([facility])[address] [place] [address] UREA NITROGEN/CREATININE (MASS RATIO) IN SER/PLAS 25.4 Normal [facility] Comment on above: Performed By: #### L [id number] ####[facility] ([facility])[address] [place] [address] CBC WITH AUTO DIFFERENTIALon 11-25-2023 Basophils (Bld) [#/Vol] 0.05 10*3/uL Normal 0.00-0.20 [facility] Comment on above: Performed By: #### L [id number] ####[facility] ([facility])[address] [place] [address] Basophils/100 WBC (Bld) 0.6 % Normal 0.0-1.0 [facility] Comment on above: Performed By: #### L [id number] ####[facility] ([facility])[address] [place] [address] Eosinophils (Bld) [#/Vol] 0.24 10*3/uL Normal 0.00-0.50 [facility] Comment on above: Performed By: #### L [id number] ####[facility] (BEAKER)[address] [place] [address] Eosinophils/100 WBC (Bld) 2.8 % Normal 0.0-6.0 [facility] Comment on above: Performed By: #### L [id number] ####[facility] (BEAKER)[address] [place] [address] Erythrocyte distribution width (RBC) [Ratio] 14.5 % Normal 11.5-15.0 [facility] Comment on above: Performed By: #### L [id number] ####[facility] (BEAKER)[address] [place] [address] ERYTHROCYTE MEAN CORPUSCULAR HEMOGLOBIN CONCENTRATION (G/DL) BY AUTOMATED 32.1 g/dL Normal 32.0-35.0 [facility] Comment on above: Performed By: #### L [id number] ####[facility] ([facility] [place] [address] Hematocrit (Bld) [Volume fraction] 46.8 % Normal 39.0-55.0 [facility] Comment on above: Performed By: #### L [id number] ####[facility] (BEAKER)[address] [place] [address] Hemoglobin (Bld) [Mass/Vol] 15.0 g/dL Normal 13.0-17.0 [facility] Comment on above: Performed By: #### L [id number] ####[facility] (BEAKER)[address] [place] [address] Immature granulocytes (Bld) [#/Vol] 0.04 10*3/uL Normal 0.00-0.20 [facility] Comment on above: Performed By: #### L [id number] ####[facility] (BEAKER)[address] [place] [address] Immature granulocytes/100 WBC (Bld) 0.5 % Normal 0.0-1.0 [facility] Comment on above: Performed By: #### L [id number] ####[facility] (BEAKER)[address] [place] [address] Lymphocytes (Bld) [#/Vol] 1.49 10*3/uL Normal 1.20-4.00 [facility] Comment on above: Performed By: #### L [id number] ####[facility] (BEAKER)[address] [place] [address] Lymphocytes/100 WBC (Bld) 17.2 % Low 20.0-45.0 [facility] Comment on above: Performed By: #### L [id number] ####[facility] (BEAKER)[address] [place] [address] MCH (RBC) [Entitic mass] 28.5 pg Normal 27.0-33.0 [facility] Comment on above: Performed By: #### L [id number] ####[facility] (BEAKER)[address] [place] [address] MCV (RBC) [Entitic vol] 88.8 fL Normal 82.0-98.0 [facility] Comment on above: Performed By: #### L [id number] ####[facility] (BEAKER)[address] [place] [address] Monocytes (Bld) [#/Vol] 0.81 10*3/uL Normal 0.10-1.00 [facility] Comment on above: Performed By: #### L [id number] ####[facility] (BEAKER)[address] [place] [address] Monocytes/100 WBC (Bld) 9.4 % Normal 5.0-12.0 [facility] Comment on above: Performed By: #### L [id number] ####[facility] (BEAKER)[address] [place] [address] Neutrophils (Bld) [#/Vol] 6.03 10*3/uL Normal 1.60-7.60 [facility] Comment on above: Performed By: #### L [id number] ####[facility] (BEAKER)[address] [place] [address] Neutrophils/100 WBC (Bld) 69.5 % Normal 40.0-72.0 [facility] Comment on above: Performed By: #### L [id number] ####[facility] ([facility])[address] [place] [address] NRBC (PER 100 WBCS) BY AUTOMATED COUNT 0.0 % Normal 0 [facility] Comment on above: Performed By: #### L [id number] ####[facility] ([facility])[address] [place] [address] PLATELETS (10*3/UL) IN BLOOD AUTOMATED COUNT 204 10*3/uL Normal 150-400 [facility] Comment on above: Performed By: #### L [id number] ####[facility] ([facility])[address] [place] [address] RBC (Bld) [#/Vol] 5.27 10*6/uL Normal 4.20-5.70 [facility] Comment on above: Performed By: #### L [id number] ####[facility] ([facility])[address] [place] [address] WBC (Bld) [#/Vol] 8.66 10*3/uL Normal 4.00-10.60 [facility] Comment on above: Performed By: #### L [id number] ####[facility] ([facility])[address] [place] [address] DSon 11-25-2023 DS Normal [facility] 30on 11-24-2023 30 Normal [facility] CBC WITH AUTO DIFFERENTIALon 11-24-2023 Basophils (Bld) [#/Vol] 0.05 10*3/uL Normal 0.00-0.20 [facility] Comment on above: Performed By: #### L [id number] ####[facility] ([facility])[address] [place] [address] Basophils/100 WBC (Bld) 0.6 % Normal 0.0-1.0 [facility] Comment on above: Performed By: #### L [id number] ####[facility] (BEAKER)[address] [place] [address] Eosinophils (Bld) [#/Vol] 0.22 10*3/uL Normal 0.00-0.50 [facility] Comment on above: Performed By: #### L [id number] ####[facility] (BEAKER)[address] [place] [address] Eosinophils/100 WBC (Bld) 2.5 % Normal 0.0-6.0 [facility] Comment on above: Performed By: #### L [id number] ####[facility] (BEAKER)[address] [place] [address] Erythrocyte distribution width (RBC) [Ratio] 14.6 % Normal 11.5-15.0 [facility] Comment on above: Performed By: #### L [id number] ####[facility] ([facility])[address] [place] [address] ERYTHROCYTE MEAN CORPUSCULAR HEMOGLOBIN CONCENTRATION (G/DL) BY AUTOMATED 32.6 g/dL Normal 32.0-35.0 [facility] Comment on above: Performed By: #### L [id number] ####[facility] ([facility])[address] [place] [address] Hematocrit (Bld) [Volume fraction] 44.8 % Normal 39.0-55.0 [facility] Comment on above: Performed By: #### L [id number] ####[facility] (BEAKER)[address] [place] [address] Hemoglobin (Bld) [Mass/Vol] 14.6 g/dL Normal 13.0-17.0 [facility] Comment on above: Performed By: #### L [id number] ####[facility] (BEAKER)[address] [place] [address] Immature granulocytes (Bld) [#/Vol] 0.04 10*3/uL Normal 0.00-0.20 [facility] Comment on above: Performed By: #### L [id number] ####[facility] (BEAKER)[address] [place] [address] Immature granulocytes/100 WBC (Bld) 0.5 % Normal 0.0-1.0 [facility] Comment on above: Performed By: #### L [id number] ####[facility] (BEAKER)[address] [place] [address] Lymphocytes (Bld) [#/Vol] 1.07 10*3/uL Low 1.20-4.00 [facility] Comment on above: Performed By: #### L [id number] ####[facility] (BEAKER)[address] [place] [address] Lymphocytes/100 WBC (Bld) 12.3 % Low 20.0-45.0 [facility] Comment on above: Performed By: #### L [id number] ####[facility] (BEAKER)[address] [place] [address] MCH (RBC) [Entitic mass] 28.7 pg Normal 27.0-33.0 [facility] Comment on above: Performed By: #### L [id number] ####[facility] (BEAKER)[address] [place] [address] MCV (RBC) [Entitic vol] 88.2 fL Normal 82.0-98.0 [facility] Comment on above: Performed By: #### L [id number] ####[facility] (BEAKER)[address] [place] [address] Monocytes (Bld) [#/Vol] 0.89 10*3/uL Normal 0.10-1.00 [facility] Comment on above: Performed By: #### L [id number] ####[facility] (BEAKER)[address] [place] [address] Monocytes/100 WBC (Bld) 10.2 % Normal 5.0-12.0 [facility] Comment on above: Performed By: #### L [id number] ####[facility] (BEAKER)[address] [place] [address] Neutrophils (Bld) [#/Vol] 6.45 10*3/uL Normal 1.60-7.60 [facility] Comment on above: Performed By: #### L [id number] ####[facility] ([facility])[address] [place] [address] Neutrophils/100 WBC (Bld) 73.9 % High 40.0-72.0 [facility] Comment on above: Performed By: #### L [id number] ####[facility] ([facility])[address] [place] [address] NRBC (PER 100 WBCS) BY AUTOMATED COUNT 0.0 % Normal 0 [facility] Comment on above: Performed By: #### L [id number] ####[facility] ([facility])[address] [place] [address] PLATELETS (10*3/UL) IN BLOOD AUTOMATED COUNT 209 10*3/uL Normal 150-400 [facility] Comment on above: Performed By: #### L [id number] ####[facility] ([facility])[address] [place] [address] RBC (Bld) [#/Vol] 5.08 10*6/uL Normal 4.20-5.70 [facility] Comment on above: Performed By: #### L [id number] ####[facility] ([facility])[address] [place], [place] [address] WBC (Bld) [#/Vol] 8.72 10*3/uL Normal 4.00-10.60 [facility] Comment on above: Performed By: #### L [id number] ####[facility] ([facility])[address] [place] [address] COMPREHENSIVE METABOLIC PANE Aldo 11-24-2023 Albumin [Mass/Vol] 3.8 g/dL Normal 3.5-5.7 [facility] Comment on above: Performed By: #### L [id number] ####[facility] ([facility])[address] [place] [address] ALP [Catalytic activity/Vol] 92 U/L Normal 34-104 [facility] Comment on above: Performed By: #### L [id number] ####[facility] (BEAKER)[address] [place] [address] ALT [Catalytic activity/Vol] 12 U/L Normal 7-52 [facility] Comment on above: Performed By: #### L [id number] ####[facility] ([facility])[address] [place] [address] Anion gap [Moles/Vol] 14 mmol/L Normal 7-20 [facility] Comment on above: Performed By: #### L [id number] ####[facility] ([facility])[address] [place] [address] AST [Catalytic activity/Vol] 22 U/L Normal 13-39 [facility] Comment on above: Performed By: #### L [id number] ####[facility] ([facility])[address] [place] [address] Bilirubin [Mass/Vol] 1.0 mg/dL Normal 0.3-1.0 [facility] Comment on above: Performed By: #### L [id number] ####[facility] ([facility])[address] [place] [address] Calcium [Mass/Vol] 9.8 mg/dL Normal 8.6-10.3 [facility] Comment on above: Performed By: #### L [id number] ####[facility] (BEAKER)[address] [place] [address] Chloride [Moles/Vol] 100 mmol/L Normal 98-107 [facility] Comment on above: Performed By: #### L [id number] ####[facility] (BEAKER)[address] [place] [address] CO2 [Moles/Vol] 24 mmol/L Normal 21-31 [facility] Comment on above: Performed By: #### L [id number] ####[email or web address] (BEAKER)[address] [place] [address] Creatinine [Mass/Vol] 2.11 mg/dL High 0.70-1.30 [facility] Comment on above: Performed By: #### L [id number] ####[facility] ([facility])[address] [place] [address] GLOMERULAR FILTRATION RATE ML/MIN/1.73 SQ M.PREDICTED 30.9 mL/min/1.73m*2 Low >60.0 [facility] Comment on above: Result Comment: The [facility]???s estimated glomerular filtration rate (eGFR) will no [...] of individuals. Performed By: #### L [id number] ####[facility] ([facility])[address] [place] [address] Glucose [Mass/Vol] 116 mg/dL High 70-100 [facility] Comment on above: Performed By: #### L [id number] ####[facility] ([facility])[address] [place] [address] Potassium [Moles/Vol] 3.4 mmol/L Low 3.5-5.1 [facility] Comment on above: Performed By: #### L [id number] ####[facility] ([facility])[address] [place] [address] Protein [Mass/Vol] 7.3 g/dL Normal 6.0-8.3 [facility] Comment on above: Performed By: #### L [id number] ####[facility] ([facility])[address] [place] [address] Sodium [Moles/Vol] 135 mmol/L Low 136-145 [facility] Comment on above: Performed By: #### L [id number] ####[facility] (BEAKER)[address] [place] [address] Urea nitrogen [Mass/Vol] 55 mg/dL High 7-25 [facility] Comment on above: Performed By: #### L [id number] ####[facility] (BEAKER)[address] [place] [address] UREA NITROGEN/CREATININE (MASS RATIO) IN SER/PLAS 26.1 Normal [facility] Comment on above: Performed By: #### L [id number] ####[facility] (BEAKER)[address] [place] [address] MAGNESIUMon 11-24-2023 Magnesium [Mass/Vol] 2.4 mg/dL Normal 1.9-2.7 [facility] Comment on above: Performed By: #### L [id number] ####[facility] (BEAKER)[address] [place] [address] 30on 11-23-2023 30 Normal [facility] 30 Normal [facility] BASIC METABOLIC PANELon 03-0 Anion gap [Moles/Vol] 15 mmol/L Normal 7-20 [facility] Comment on above: Performed By: #### L [id number] ####[facility] (BEAKER)[address] [place] [address] Calcium [Mass/Vol] 10.1 mg/dL Normal 8.6-10.3 [facility] Comment on above: Performed By: #### L [id number] ####[facility] (BEAKER)[address] [place] [address] Chloride [Moles/Vol] 99 mmol/L Normal 98-107 [facility] Comment on above: Performed By: #### L [id number] ####[facility] [[email or web address] (BEAKER)[address] [place] [address] CO2 [Moles/Vol] 25 mmol/L Normal 21-31 [facility] Comment on above: Performed By: #### L [id number] ####[facility] [[email or web address] (BEAKER)[address] [place] [address] Creatinine [Mass/Vol] 2.02 mg/dL High 0.70-1.30 [facility] Comment on above: Performed By: #### L [id number] ####[facility] ([facility])[address] [place] [address] GLOMERULAR FILTRATION RATE ML/MIN/1.73 SQ M.PREDICTED 32.5 mL/min/1.73m*2 Low >60.0 [facility] Comment on above: Result Comment: The [facility]???s estimated glomerular filtration rate (eGFR) will no [...] of individuals. Performed By: #### L [id number] ####[facility] ([facility])[address] [place] [address] Glucose [Mass/Vol] 103 mg/dL High 70-100 [facility] Comment on above: Performed By: #### L [id number] ####[facility] ([facility])[address] [place] [address] Potassium [Moles/Vol] 3.5 mmol/L Normal 3.5-5.1 [facility] Comment on above: Performed By: #### L [id number] ####[facility] ([facility])[address] [place] [address] Sodium [Moles/Vol] 135 mmol/L Low 136-145 [facility] Comment on above: Performed By: #### L [id number] ####[facility] ([facility])[address] [place] [address] Urea nitrogen [Mass/Vol] 50 mg/dL High 7-25 [facility] Comment on above: Performed By: #### L [id number] ####[facility] ([facility])[address] [place] [address] UREA NITROGEN/CREATININE (MASS RATIO) IN SER/PLAS 24.8 Normal [facility] Comment on above: Performed By: #### L [id number] ####[facility] ([facility])[address] [place] [address] CBC WITH AUTO DIFFERENTIALon 11-23-2023 Basophils (Bld) [#/Vol] 0.04 10*3/uL Normal 0.00-0.20 [facility] Comment on above: Performed By: #### L [id number] ####[facility] ([facility])[address] [place] [address] Basophils/100 WBC (Bld) 0.4 % Normal 0.0-1.0 [facility] Comment on above: Performed By: #### L [id number] ####[facility] ([facility])[address] [place] [address] Eosinophils (Bld) [#/Vol] 0.13 10*3/uL Normal 0.00-0.50 [facility] Comment on above: Performed By: #### L [id number] ####[facility] ([facility])[address] [place] [address] Eosinophils/100 WBC (Bld) 1.4 % Normal 0.0-6.0 [facility] Comment on above: Performed By: #### L [id number] ####[facility] ([facility])[address] [place] [address] Erythrocyte distribution width (RBC) [Ratio] 14.9 % Normal 11.5-15.0 [facility] Comment on above: Performed By: #### L [id number] ####[facility] ([facility])[address] [place] [address] ERYTHROCYTE MEAN CORPUSCULAR HEMOGLOBIN CONCENTRATION (G/DL) BY AUTOMATED 31.8 g/dL Low 32.0-35.0 [facility] Comment on above: Performed By: #### L [id number] ####[facility] ([facility])[address] [place] [address] Hematocrit (Bld) [Volume fraction] 44.6 % Normal 39.0-55.0 [facility] Comment on above: Performed By: #### L [id number] ####[facility] (BEAKER)[address] [place] [address] Hemoglobin (Bld) [Mass/Vol] 14.2 g/dL Normal 13.0-17.0 [facility] Comment on above: Performed By: #### L [id number] ####[facility] (BEAKER)[address] [place] [address] Immature granulocytes (Bld) [#/Vol] 0.04 10*3/uL Normal 0.00-0.20 [facility] Comment on above: Performed By: #### L [id number] ####[facility] (BEAKER)[address] [place] [address] Immature granulocytes/100 WBC (Bld) 0.4 % Normal 0.0-1.0 [facility] Comment on above: Performed By: #### L [id number] ####[facility] (BEAKER)[address] [place] [address] Lymphocytes (Bld) [#/Vol] 1.04 10*3/uL Low 1.20-4.00 [facility] Comment on above: Performed By: #### L [id number] ####[facility] (BEAKER)[address] [place] [address] Lymphocytes/100 WBC (Bld) 11.3 % Low 20.0-45.0 [facility] Comment on above: Performed By: #### L [id number] ####[facility] (BEAKER)[address] [place] [address] MCH (RBC) [Entitic mass] 28.5 pg Normal 27.0-33.0 [facility] Comment on above: Performed By: #### L [id number] ####[facility] (BEAKER)[address] [place] [address] MCV (RBC) [Entitic vol] 89.6 fL Normal 82.0-98.0 [facility] Comment on above: Performed By: #### L [id number] ####[facility] [[email or web address] ([facility])[address] [place] [address] Monocytes (Bld) [#/Vol] 0.83 10*3/uL Normal 0.10-1.00 [facility] Comment on above: Performed By: #### L [id number] ####[facility] ([facility])[address] [place] [address] Monocytes/100 WBC (Bld) 9.0 % Normal 5.0-12.0 [facility] Comment on above: Performed By: #### L [id number] ####[facility] ([facility])[address] [place] [address] Neutrophils (Bld) [#/Vol] 7.12 10*3/uL Normal 1.60-7.60 [facility] Comment on above: Performed By: #### L [id number] ####[facility] ([facility])[address] [place] [address] Neutrophils/100 WBC (Bld) 77.5 % High 40.0-72.0 [facility] Comment on above: Performed By: #### L [id number] ####[facility] ([facility])[address] [place] [address] NRBC (PER 100 WBCS) BY AUTOMATED COUNT 0.0 % Normal 0 [facility] Comment on above: Performed By: #### L [id number] ####[facility] ([facility])[address] [place] [address] PLATELETS (10*3/UL) IN BLOOD AUTOMATED COUNT 212 10*3/uL Normal 150-400 [facility] Comment on above: Performed By: #### L [id number] ####[facility] ([facility])[address] [place] [address] RBC (Bld) [#/Vol] 4.98 10*6/uL Normal 4.20-5.70 [facility] Comment on above: Performed By: #### L [id number] ####[facility] [[email or web address] (BEAKER)[address] [place] [address] WBC (Bld) [#/Vol] 9.20 10*3/uL Normal 4.00-10.60 [facility] Comment on above: Performed By: #### L [id number] ####[facility] (BEAKER)[address] [place] [address] 30on 11-22-2023 30 Normal [facility] 30 Normal [facility] 30 Normal [facility] BASIC METABOLIC PANELon 03-0 Anion gap [Moles/Vol] 15 mmol/L Normal 7-20 [facility] Comment on above: Performed By: #### L [id number] ####[facility] (BEAKER)[address] [place] [address] Calcium [Mass/Vol] 9.6 mg/dL Normal 8.6-10.3 [facility] Comment on above: Performed By: #### L [id number] ####[facility] (BEAKER)[address] [place] [address] Chloride [Moles/Vol] 100 mmol/L Normal 98-107 [facility] Comment on above: Performed By: #### L [id number] ####[facility] (BEAKER)[address] [place] [address] CO2 [Moles/Vol] 26 mmol/L Normal 21-31 [facility] Comment on above: Performed By: #### L [id number] ####[facility] [[email or web address] (BEAKER)[address] [place] [address] Creatinine [Mass/Vol] 2.19 mg/dL High 0.70-1.30 [facility] Comment on above: Performed By: #### L [id number] ####[facility] (BEAKER)[address] [place] [address] GLOMERULAR FILTRATION RATE ML/MIN/1.73 SQ M.PREDICTED 29.5 mL/min/1.73m*2 Low >60.0 [facility] Comment on above: Result Comment: [facility]???s estimated glomerular filtration rate (eGFR) will no [...] of individuals. Performed By: #### L [id number] ####[facility] ([facility])[address] [facility] [address] Glucose [Mass/Vol] 110 mg/dL High 70-100 [facility] Comment on above: Performed By: #### L [id number] ####[facility] ([facility])[address] [facility] [place] [address] Potassium [Moles/Vol] 3.4 mmol/L Low 3.5-5.1 [facility] Comment on above: Performed By: #### L [id number] ####[facility] ([facility])[address] [place] [address] Sodium [Moles/Vol] 138 mmol/L Normal 136-145 [facility] Comment on above: Performed By: #### L [id number] ####[facility] (BEAKER)[address] [facility] [place] [address] Urea nitrogen [Mass/Vol] 52 mg/dL High 7-25 [facility] Comment on above: Performed By: #### L [id number] ####[facility] (BEAKER)[address] [facility] [place] [address] UREA NITROGEN/CREATININE (MASS RATIO) IN SER/PLAS 23.7 Normal [facility] Comment on above: Performed By: #### L [id number] ####[facility] (BEAKER)[address] [place] [address] CBC WITH AUTO DIFFERENTIALon 11-22-2023 Basophils (Bld) [#/Vol] 0.04 10*3/uL Normal 0.00-0.20 [facility] Comment on above: Performed By: #### L [id number] ####[facility] (BEAKER)[address] [place] [address] Basophils/100 WBC (Bld) 0.3 % Normal 0.0-1.0 [facility] Comment on above: Performed By: #### L [id number] ####[facility] (BEAKER)[address] [place] [address] Eosinophils (Bld) [#/Vol] 0.07 10*3/uL Normal 0.00-0.50 [facility] Comment on above: Performed By: #### L [id number] ####[facility] (BEAKER)[address] [place] [address] Eosinophils/100 WBC (Bld) 0.6 % Normal 0.0-6.0 [facility] Comment on above: Performed By: #### L [id number] ####[facility] (BEAKER)[address] [place] [address] Erythrocyte distribution width (RBC) [Ratio] 15.2 % High 11.5-15.0 [facility] Comment on above: Performed By: #### L [id number] ####[facility] [facility] [place] [address] ERYTHROCYTE MEAN CORPUSCULAR HEMOGLOBIN CONCENTRATION (G/DL) BY AUTOMATED 32.5 g/dL Normal 32.0-35.0 [facility] Comment on above: Performed By: #### L [id number] ####[facility] ([facility]AKER)[address] [place] [address] Hematocrit (Bld) [Volume fraction] 41.2 % Normal 39.0-55.0 [facility] Comment on above: Performed By: #### L [id number] ####[facility] ([facility])[address] [place] [address] Hemoglobin (Bld) [Mass/Vol] 13.4 g/dL Normal 13.0-17.0 [facility] Comment on above: Performed By: #### L [id number] ####[facility] ([facility])[address] [place] [address] Immature granulocytes (Bld) [#/Vol] 0.05 10*3/uL Normal 0.00-0.20 [facility] Comment on above: Performed By: #### L [id number] ####[facility] ([facility])[address] [place] [address] Immature granulocytes/100 WBC (Bld) 0.4 % Normal 0.0-1.0 [facility] Comment on above: Performed By: #### L [id number] ####[facility] ([facility])[address] [place] [address] Lymphocytes (Bld) [#/Vol] 1.07 10*3/uL Low 1.20-4.00 [facility] Comment on above: Performed By: #### L [id number] ####[facility] ([facility])[address] [place] [address] Lymphocytes/100 WBC (Bld) 8.7 % Low 20.0-45.0 [facility] Comment on above: Performed By: #### L [id number] ####[facility] ([facility])[address] [place] [address] MCH (RBC) [Entitic mass] 28.7 pg Normal 27.0-33.0 [facility] Comment on above: Performed By: #### L [id number] ####[facility] ([facility])[address] [place] [address] MCV (RBC) [Entitic vol] 88.2 fL Normal 82.0-98.0 [facility] Comment on above: Performed By: #### L [id number] ####[facility] ([facility]ER)[address] [place] [address] Monocytes (Bld) [#/Vol] 1.09 10*3/uL High 0.10-1.00 [facility] Comment on above: Performed By: #### L [id number] ####[facility] [[email or web address] ([facility])[address] [place], [place] [address] Monocytes/100 WBC (Bld) 8.9 % Normal 5.0-12.0 [facility] Comment on above: Performed By: #### L [id number] ####[facility] [[email or web address] ([facility])[address] [place] [address] Neutrophils (Bld) [#/Vol] 9.95 10*3/uL High 1.60-7.60 [facility] Comment on above: Performed By: #### L [id number] ####[facility] (BEAKER)[address] [place], [place] [address] Neutrophils/100 WBC (Bld) 81.1 % High 40.0-72.0 [facility] Comment on above: Performed By: #### L [id number] ####[facility] ([facility]AKER)[address] [place], [place] [address] NRBC (PER 100 WBCS) BY AUTOMATED COUNT 0.0 % Normal 0 [facility] Comment on above: Performed By: #### L [id number] ####[facility] ([facility]ER)[address] [place], [place] [address] PLATELETS (10*3/UL) IN BLOOD AUTOMATED COUNT 196 10*3/uL Normal 150-400 [facility] Comment on above: Performed By: #### L [id number] ####[facility] (BEAKER)[address] [place], [place] [address] RBC (Bld) [#/Vol] 4.67 10*6/uL Normal 4.20-5.70 [facility] Comment on above: Performed By: #### L [id number] ####[facility] ([facility]ER)[address] [place] [address] WBC (Bld) [#/Vol] 12.27 10*3/uL High 4.00-10.60 [facility] Comment on above: Performed By: #### L [id number] ####[facility] ([facility])[address] [place] [address] 30on 11-21-2023 30 The patient is Moder ately Stable - Low risk of patient condition declining or worsening The patient's goals for the shift include comfort The clinical goals for the shift include stable vitals Normal [facility] 30 Normal [facility] 30 Normal [facility] 30 Normal [facility] BASIC METABOLIC PANELon 03 Anion gap [Moles/Vol] 15 mmol/L Normal 7-20 [facility] Comment on above: Performed By: #### L [id number] ####[facility] [[email or web address] ([facility])[address] [place] [address] Calcium [Mass/Vol] 9.7 mg/dL Normal 8.6-10.3 [facility] Comment on above: Performed By: #### L [id number] ####[facility] [[email or web address] ([facility])[address] [place] [address] Chloride [Moles/Vol] 100 mmol/L Normal 98-107 [facility] Comment on above: Performed By: #### L [id number] ####[facility] ([facility])[address] [place] [address] CO2 [Moles/Vol] 25 mmol/L Normal 21-31 [facility] Comment on above: Performed By: #### L [id number] ####[facility] ([facility]ER)[address] [place] [address] Creatinine [Mass/Vol] 2.27 mg/dL High 0.70-1.30 [facility] Comment on above: Performed By: #### L [id number] ####[facility] ([facility]ER)[address] [place] [address] GLOMERULAR FILTRATION RATE ML/MIN/1.73 SQ M.PREDICTED 28.3 mL/min/1.73m*2 Low >60.0 [facility] Comment on above: Result Comment: The [facility]???s estimated glomerular filtration rate (eGFR) will no [...] of individuals. Performed By: #### L [id number] ####[facility] ([facility])[address] [place] [address] Glucose [Mass/Vol] 107 mg/dL High 70-100 [facility] Comment on above: Performed By: #### L [id number] ####[facility] ([facility])[address] [place] [address] Potassium [Moles/Vol] 3.1 mmol/L Low 3.5-5.1 [facility] Comment on above: Performed By: #### L [id number] ####[facility] ([facility])[address] [place] [address] Sodium [Moles/Vol] 137 mmol/L Normal 136-145 [facility] Comment on above: Performed By: #### L [id number] ####[facility] ([facility])[address] [place] [address] Urea nitrogen [Mass/Vol] 50 mg/dL High 7-25 [facility] Comment on above: Performed By: #### L [id number] ####[facility] ([facility])[address] [place] [address] UREA NITROGEN/CREATININE (MASS RATIO) IN SER/PLAS 22.0 Normal [facility] Comment on above: Performed By: #### L [id number] ####[facility] ([facility])[address] [place] [address] CBC WITH AUTO DIFFERENTIALon 11-21-2023 Basophils (Bld) [#/Vol] 0.03 10*3/uL Normal 0.00-0.20 [facility] Comment on above: Performed By: #### L [id number] ####[facility] ([facility])[address] [place] [address] Basophils/100 WBC (Bld) 0.2 % Normal 0.0-1.0 [facility] Comment on above: Performed By: #### L [id number] ####[facility] ([facility]ER)[address] [place] [address] Eosinophils (Bld) [#/Vol] 0.04 10*3/uL Normal 0.00-0.50 [facility] Comment on above: Performed By: #### L [id number] ####[facility] ([facility]AKER)[address] [place] [address] Eosinophils/100 WBC (Bld) 0.3 % Normal 0.0-6.0 [facility] Comment on above: Performed By: #### L [id number] ####[facility] ([facility]ER)[address] [place] [address] Erythrocyte distribution width (RBC) [Ratio] 15.2 % High 11.5-15.0 [facility] Comment on above: Performed By: #### L [id number] ####[facility] ([facility]ER)[address] [place] [address] ERYTHROCYTE MEAN CORPUSCULAR HEMOGLOBIN CONCENTRATION (G/DL) BY AUTOMATED 32.0 g/dL Normal 32.0-35.0 [facility] Comment on above: Performed By: #### L [id number] ####[facility] ([facility]ER)[address] [place] [address] Hematocrit (Bld) [Volume fraction] 38.8 % Low 39.0-55.0 [facility] Comment on above: Performed By: #### L [id number] ####[facility] (BEAKER)[address] [place] [address] Hemoglobin (Bld) [Mass/Vol] 12.4 g/dL Low 13.0-17.0 [facility] Comment on above: Performed By: #### L [id number] ####[facility] ([facility]ER)[address] [place] [address] Immature granulocytes (Bld) [#/Vol] 0.07 10*3/uL Normal 0.00-0.20 [facility] Comment on above: Performed By: #### L [id number] ####[facility] (BEAKER)[address] [place] [address] Immature granulocytes/100 WBC (Bld) 0.5 % Normal 0.0-1.0 [facility] Comment on above: Performed By: #### L [id number] ####[facility] (BE[facility]ER)[address] [place] [address] Lymphocytes (Bld) [#/Vol] 0.84 10*3/uL Low 1.20-4.00 [facility] Comment on above: Performed By: #### L [id number] ####[facility] (BE[facility]ER)[address] [place] [address] Lymphocytes/100 WBC (Bld) 6.2 % Low 20.0-45.0 [facility] Comment on above: Performed By: #### L [id number] ####[facility] (BEAKER)[address] [place] [address] MCH (RBC) [Entitic mass] 28.9 pg Normal 27.0-33.0 [facility] Comment on above: Performed By: #### L [id number] ####[facility] (BEAKER)[address] [place] [address] MCV (RBC) [Entitic vol] 90.4 fL Normal 82.0-98.0 [facility] Comment on above: Performed By: #### L [id number] ####[facility] (BE[facility]ER)[address] [place] [address] Monocytes (Bld) [#/Vol] 1.00 10*3/uL Normal 0.10-1.00 [facility] Comment on above: Performed By: #### L [id number] ####[facility] (BE[facility]ER)[address] [place] [address] Monocytes/100 WBC (Bld) 7.4 % Normal 5.0-12.0 [facility] Comment on above: Performed By: #### L [id number] ####[facility] ([facility])[address] [place] [address] Neutrophils (Bld) [#/Vol] 11.61 10*3/uL High 1.60-7.60 [facility] Comment on above: Performed By: #### L [id number] ####[facility] ([facility])[address] [place] [address] Neutrophils/100 WBC (Bld) 85.4 % High 40.0-72.0 [facility] Comment on above: Performed By: #### L [id number] ####[facility] ([facility])[address] [place] [address] NRBC (PER 100 WBCS) BY AUTOMATED COUNT 0.0 % Normal 0 [facility] Comment on above: Performed By: #### L [id number] ####[facility] ([facility])[address] [place] [address] PLATELETS (10*3/UL) IN BLOOD AUTOMATED COUNT 176 10*3/uL Normal 150-400 [facility] Comment on above: Performed By: #### L [id number] ####[facility] ([facility])[address] [place] [address] RBC (Bld) [#/Vol] 4.29 10*6/uL Normal 4.20-5.70 [facility] Comment on above: Performed By: #### L [id number] ####[facility] ([facility])[address] [place] [address] WBC (Bld) [#/Vol] 13.59 10*3/uL High 4.00-10.60 [facility] Comment on above: Performed By: #### L [id number] ####[facility] ([facility])[address] [place] [address] MAGNESIUMon 11-21-2023 Magnesium [Mass/Vol] 2.3 mg/dL Normal 1.9-2.7 [facility] Comment on above: Performed By: #### L [id number] ####[facility] [[email or web address] ([facility])[address] [place] [address] 30on 11-20-2023 30 Normal [facility] 30 Normal [facility] BASIC METABOLIC PANELon 03-0 Anion gap [Moles/Vol] 15 mmol/L Normal 7-20 [facility] Comment on above: Performed By: #### L [id number] ####[facility] [[email or web address]] [facility] ([facility])[address] [place] [address] Calcium [Mass/Vol] 9.4 mg/dL Normal 8.6-10.3 [facility] Comment on above: Performed By: #### L [id number] ####[facility] (BEAKER)[address] [place] [address] Chloride [Moles/Vol] 101 mmol/L Normal 98-107 [facility] Comment on above: Performed By: #### L [id number] ####[facility] ([facility]AKER)[address] [place] [address] CO2 [Moles/Vol] 26 mmol/L Normal 21-31 [facility] Comment on above: Performed By: #### L [id number] ####[facility] (BEAKER)[address] [place] [address] Creatinine [Mass/Vol] 2.47 mg/dL High 0.70-1.30 [facility] Comment on above: Performed By: #### L [id number] ####[facility] (BEAKER)[address] [place] [address] GLOMERULAR FILTRATION RATE ML/MIN/1.73 SQ M.PREDICTED 25.5 mL/min/1.73m*2 Low >60.0 [facility] Comment on above: Result Comment: The [facility]???s estimated glomerular filtration rate (eGFR) will no [...] of individuals. Performed By: #### L [id number] ####[facility] ([facility])[address] [place] [address] Glucose [Mass/Vol] 125 mg/dL High 70-100 [facility] Comment on above: Performed By: #### L [id number] ####[facility] ([facility])[address] [place] [address] Potassium [Moles/Vol] 3.5 mmol/L Normal 3.5-5.1 [facility] Comment on above: Performed By: #### L [id number] ####[facility] ([facility])[address] [place] [address] Sodium [Moles/Vol] 138 mmol/L Normal 136-145 [facility] Comment on above: Performed By: #### L [id number] ####[facility] (BEAKER)[address] [place] [address] Urea nitrogen [Mass/Vol] 52 mg/dL High 7-25 [facility] Comment on above: Performed By: #### L [id number] ####[facility] ([facility])[address] [place] [address] UREA NITROGEN/CREATININE (MASS RATIO) IN SER/PLAS 21.1 Normal [facility] Comment on above: Performed By: #### L [id number] ####[facility] (BEAKER)[address] [place] [address] Anion gap [Moles/Vol] 14 mmol/L Normal 7-20 [facility] Comment on above: Performed By: #### L [id number] ####[facility] ([facility])[address] [place] [address] Calcium [Mass/Vol] 9.4 mg/dL Normal 8.6-10.3 [facility] Comment on above: Performed By: #### L [id number] ####[facility] (BEAKER)[address] [place] [address] Chloride [Moles/Vol] 102 mmol/L Normal 98-107 [facility] Comment on above: Performed By: #### L [id number] ####[facility] (BEAKER)[address] [place] [address] CO2 [Moles/Vol] 25 mmol/L Normal 21-31 [facility] Comment on above: Performed By: #### L [id number] ####[facility] (BEAKER)[address] [place] [address] Creatinine [Mass/Vol] 2.43 mg/dL High 0.70-1.30 [facility] Comment on above: Performed By: #### L [id number] ####[facility] ([facility])[address] [place] [address] GLOMERULAR FILTRATION RATE ML/MIN/1.73 SQ M.PREDICTED 26.1 mL/min/1.73m*2 Low >60.0 [facility] Comment on above: Result Comment: The [facility]???s estimated glomerular filtration rate (eGFR) will no [...] of individuals. Performed By: #### L [id number] ####[facility] (BEAKER)[address] [place] [address] Glucose [Mass/Vol] 143 mg/dL High 70-100 [facility] Comment on above: Performed By: #### L [id number] ####[facility] (BEAKER)[address] [place] [address] Potassium [Moles/Vol] 3.9 mmol/L Normal 3.5-5.1 [facility] Comment on above: Performed By: #### L [id number] ####[facility] [[email or web address]] [facility] ([facility])[address] [place] [address] Sodium [Moles/Vol] 137 mmol/L Normal 136-145 [facility] Comment on above: Performed By: #### L [id number] ####[facility] (BEAKER)[address] [place] [address] Urea nitrogen [Mass/Vol] 47 mg/dL High 7-25 [facility] Comment on above: Performed By: #### L [id number] ####[facility] ([facility]AKER)[address] [place] [address] UREA NITROGEN/CREATININE (MASS RATIO) IN SER/PLAS 19.3 Normal [facility] Comment on above: Performed By: #### L [id number] ####[facility] (BEAKER)[address] [place] [address] Anion gap [Moles/Vol] 14 mmol/L Normal 7-20 [facility] Comment on above: Performed By: #### L [id number] ####[facility] ([facility]AKER)[address] [place] [address] Calcium [Mass/Vol] 9.4 mg/dL Normal 8.6-10.3 [facility] Comment on above: Performed By: #### L [id number] ####[facility] (BEAKER)[address] [place] [address] Chloride [Moles/Vol] 103 mmol/L Normal 98-107 [facility] Comment on above: Performed By: #### L [id number] ####[facility] (BEAKER)[address] [place] [address] CO2 [Moles/Vol] 24 mmol/L Normal 21-31 [facility] Comment on above: Performed By: #### L [id number] ####[facility] [[email or web address]] [facility] ([facility])[address] [place] [address] Creatinine [Mass/Vol] 2.36 mg/dL High 0.70-1.30 [facility] Comment on above: Performed By: #### L [id number] ####[facility] ([facility])[address] [place] [address] GLOMERULAR FILTRATION RATE ML/MIN/1.73 SQ M.PREDICTED 27.0 mL/min/1.73m*2 Low >60.0 [facility] Comment on above: Result Comment: The [facility]???s estimated glomerular filtration rate (eGFR) will no [...] of individuals. Performed By: #### L [id number] ####[facility] ([facility])[address] [place] [address] Glucose [Mass/Vol] 153 mg/dL High 70-100 [facility] Comment on above: Performed By: #### L [id number] ####[facility] ([facility])[address] [place] [address] Potassium [Moles/Vol] 3.7 mmol/L Normal 3.5-5.1 [facility] Comment on above: Performed By: #### L [id number] ####[facility] ([facility])[address] [place] [address] Sodium [Moles/Vol] 137 mmol/L Normal 136-145 [facility] Comment on above: Performed By: #### L [id number] ####[facility] ([facility])[address] [place] [address] Urea nitrogen [Mass/Vol] 46 mg/dL High 7-25 [facility] Comment on above: Performed By: #### L [id number] ####[facility] ([facility])[address] [place] [address] UREA NITROGEN/CREATININE (MASS RATIO) IN SER/PLAS 19.5 Normal [facility] Comment on above: Performed By: #### L [id number] ####[facility] ([facility])[address] [place] [address] CBC WITH AUTO DIFFERENTIALon 11-20-2023 Basophils (Bld) [#/Vol] 0.02 10*3/uL Normal 0.00-0.20 [facility] Comment on above: Performed By: #### L [id number] ####[facility] ([facility])[address] [place] [address] Basophils/100 WBC (Bld) 0.1 % Normal 0.0-1.0 [facility] Comment on above: Performed By: #### L [id number] ####[facility] ([facility])[address] [place] [address] Eosinophils (Bld) [#/Vol] 0.00 10*3/uL Normal 0.00-0.50 [facility] Comment on above: Performed By: #### L [id number] ####[facility] (BEAKER)[address] [place] [address] Eosinophils/100 WBC (Bld) 0.0 % Normal 0.0-6.0 [facility] Comment on above: Performed By: #### L [id number] ####[facility] ([facility])[address] [place] [address] Erythrocyte distribution width (RBC) [Ratio] 15.1 % High 11.5-15.0 [facility] Comment on above: Performed By: #### L [id number] ####[facility] (BEAKER)[address] [place] [address] ERYTHROCYTE MEAN CORPUSCULAR HEMOGLOBIN CONCENTRATION (G/DL) BY AUTOMATED 32.4 g/dL Normal 32.0-35.0 [facility] Comment on above: Performed By: #### L [id number] ####[facility] (BEAKER)[address] [place] [address] Hematocrit (Bld) [Volume fraction] 35.8 % Low 39.0-55.0 [facility] Comment on above: Performed By: #### L [id number] ####[facility] (BEAKER)[address] [place] [address] Hemoglobin (Bld) [Mass/Vol] 11.6 g/dL Low 13.0-17.0 [facility] Comment on above: Performed By: #### L [id number] ####[facility] ([facility])[address] [place] [address] Immature granulocytes (Bld) [#/Vol] 0.11 10*3/uL Normal 0.00-0.20 [facility] Comment on above: Performed By: #### L [id number] ####[facility] (BEAKER)[address] [place] [address] Immature granulocytes/100 WBC (Bld) 0.8 % Normal 0.0-1.0 [facility] Comment on above: Performed By: #### L [id number] ####[facility] (BEAKER)[address] [place] [address] Lymphocytes (Bld) [#/Vol] 0.59 10*3/uL Low 1.20-4.00 [facility] Comment on above: Performed By: #### L [id number] ####[facility] ([facility]ER)[address] [place] [address] Lymphocytes/100 WBC (Bld) 4.2 % Low 20.0-45.0 [facility] Comment on above: Performed By: #### L [id number] ####[facility] (BEAKER)[address] [place] [address] MCH (RBC) [Entitic mass] 29.5 pg Normal 27.0-33.0 [facility] Comment on above: Performed By: #### L [id number] ####[facility] (BEAKER)[address] [place] [address] MCV (RBC) [Entitic vol] 91.1 fL Normal 82.0-98.0 [facility] Comment on above: Performed By: #### L [id number] ####[facility] ([facility])[address] [place] [address] Monocytes (Bld) [#/Vol] 0.85 10*3/uL Normal 0.10-1.00 [facility] Comment on above: Performed By: #### L [id number] ####[facility] ([facility])[address] [place] [address] Monocytes/100 WBC (Bld) 6.0 % Normal 5.0-12.0 [facility] Comment on above: Performed By: #### L [id number] ####[facility] ([facility])[address] [place] [address] Neutrophils (Bld) [#/Vol] 12.57 10*3/uL High 1.60-7.60 [facility] Comment on above: Performed By: #### L [id number] ####[facility] ([facility])[address] [place] [address] Neutrophils/100 WBC (Bld) 88.9 % High 40.0-72.0 [facility] Comment on above: Performed By: #### L [id number] ####[facility] ([facility])[address] [place] [address] NRBC (PER 100 WBCS) BY AUTOMATED COUNT 0.0 % Normal 0 [facility] Comment on above: Performed By: #### L [id number] ####[facility] [facility] ([facility])[address] [place] [address] PLATELETS (10*3/UL) IN BLOOD AUTOMATED COUNT 159 10*3/uL Normal 150-400 [facility] Comment on above: Performed By: #### L [id number] ####[facility] ([facility])[address] [place] [address] RBC (Bld) [#/Vol] 3.93 10*6/uL Low 4.20-5.70 [facility] Comment on above: Performed By: #### L [id number] ####[facility] ([facility])[address] [place] [address] WBC (Bld) [#/Vol] 14.14 10*3/uL High 4.00-10.60 [facility] Comment on above: Performed By: #### L [id number] ####[facility] ([facility])[address] [place] [address] CONSULTon 11-20-2023 CONSULT Normal [facility] CREATININE, URINE, RANDOMon 11-20-2023 Creatinine (U) [Mass/Vol] 63.0 mg/dL Normal 26-299 [facility] Comment on above: Performed By: #### L [id number] ####[facility] ([facility])[address] [place] [address] MAGNESIUMon 11-20-2023 Magnesium [Mass/Vol] 2.2 mg/dL Normal 1.9-2.7 [facility] Comment on above: Performed By: #### L [id number] ####[facility] ([facility])[address] [place] [address] PROTEIN, URINE, RANDOMon Protein (U) [Mass/Vol] 12.0 mg/dL Normal [facility] Comment on above: Result Comment: Ther e are no established reference values for random urine specimens. Performed By: #### L [id number] ####[facility] ([facility])[address] [place] [address] URINALYSIS WITH REFLEX CULTU REon 11-20-2023 BILIRUBIN, TOTAL PRESENCE IN URINE Negative Normal Negative [facility] Comment on above: Order Comment: Micro scopics not performed on urines with negative chemical reactions unless requested on original order. Performed By: #### L [id number] ####[facility] ([facility])[address] [place] [address] Clarity (U) Clear Normal Clear [facility] Comment on above: Order Comment: Micro scopics not performed on urines with negative chemical reactions unless requested on original order. Performed By: #### L [id number] ####[facility] ([facility])[address] [place] [address] Color (U) Straw Abnormal Yellow [facility] Comment on above: Order Comment: Micro scopics not performed on urines with negative chemical reactions unless requested on original order. Performed By: #### L [id number] ####[facility] ([facility])[address] [place] [address] Glucose (U) [Mass/Vol] 150 mg/dL Abnormal Negative [facility] Comment on above: Order Comment: Micro scopics not performed on urines with negative chemical reactions unless requested on original order. Performed By: #### L [id number] ####[facility] ([facility])[address] [place] [address] HEMOGLOBIN PRESENCE IN URINE Negative Normal Negative [facility] Comment on above: Order Comment: Micro scopics not performed on urines with negative chemical reactions unless requested on original order. Performed By: #### L [id number] ####[facility] ([facility])[address] [place] [address] Ketones Ql (U) Negative Normal Negative [facility] Comment on above: Order Comment: Micro scopics not performed on urines with negative chemical reactions unless requested on original order. Performed By: #### L [id number] ####[facility] ([facility])[address] [place] [address] LEUKOCYTE ESTERASE PRESENCE IN URINE BY TEST STRIP Negative Normal Negative [facility] Comment on above: Order Comment: Micro scopics not performed on urines with negative chemical reactions unless requested on original order. Performed By: #### L [id number] ####[facility] ([facility])[address] [place] [address] NITRITE PRESENCE IN URINE Negative Normal Negative [facility] Comment on above: Order Comment: Micro scopics not performed on urines with negative chemical reactions unless requested on original order. Performed By: #### L [id number] ####[facility] ([facility])[address] [place] [address] pH (U) 5.0 [pH] Normal 5.0-8.0 [facility] Comment on above: Order Comment: Micro scopics not performed on urines with negative chemical reactions unless requested on original order. Performed By: #### L [id number] ####[facility] ([facility])[address] [place] [address] Protein (U) [Mass/Vol] Negative Normal Negative [facility] Comment on above: Order Comment: Micro scopics not performed on urines with negative chemical reactions unless requested on original order. Performed By: #### L [id number] ####[facility] ([facility])[address] [place] [address] Specific gravity (U) [Rel density] 1.011 Low 1.015-1.020 [facility] Comment on above: Order Comment: Micro scopics not performed on urines with negative chemical reactions unless requested on original order. Performed By: #### L [id number] ####[facility] ([facility])[address] [place] [address] 30on 11-19-2023 30 Normal [facility] ANESon 11-19-2023 ANES Normal [facility] B-TYPE NATRIURETIC PEPTIDEon 11-19-2023 Natriuretic peptide B (Bld) [Mass/Vol] 1747 pg/mL High 0-100 [facility] Comment on above: Performed By: #### L [id number] ####[facility] ([facility])[address] [place] [address] BASIC METABOLIC PANELon 03-0 Anion gap [Moles/Vol] 16 mmol/L Normal 7-20 [facility] Comment on above: Performed By: #### L [id number] ####[facility] ([facility])[address] [place] [address] Calcium [Mass/Vol] 9.6 mg/dL Normal 8.6-10.3 [facility] Comment on above: Performed By: #### L [id number] ####[facility] ([facility])[address] [place] [address] Chloride [Moles/Vol] 103 mmol/L Normal 98-107 [facility] Comment on above: Performed By: #### L [id number] ####[facility] ([facility])[address] [place] [address] CO2 [Moles/Vol] 22 mmol/L Normal 21-31 [facility] Comment on above: Performed By: #### L [id number] ####[facility] ([facility])[address] [place] [address] Creatinine [Mass/Vol] 2.13 mg/dL High 0.70-1.30 [facility] Comment on above: Performed By: #### L [id number] ####[facility] ([facility])[address] [place] [address] GLOMERULAR FILTRATION RATE ML/MIN/1.73 SQ M.PREDICTED 30.5 mL/min/1.73m*2 Low >60.0 [facility] Comment on above: Result Comment: The [facility]???s estimated glomerular filtration rate (eGFR) will no [...] of individuals. Performed By: #### L [id number] ####[facility] ([facility])[address] [place] [address] Glucose [Mass/Vol] 118 mg/dL High 70-100 [facility] Comment on above: Performed By: #### L [id number] ####[facility] ([facility])[address] [place] [address] Potassium [Moles/Vol] 4.4 mmol/L Normal 3.5-5.1 [facility] Comment on above: Performed By: #### L [id number] ####[facility] ([facility])[address] [place] [address] Sodium [Moles/Vol] 137 mmol/L Normal 136-145 [facility] Comment on above: Performed By: #### L [id number] ####[facility] ([facility])[address] [place] [address] Urea nitrogen [Mass/Vol] 41 mg/dL High 7-25 [facility] Comment on above: Performed By: #### L [id number] ####[facility] ([facility])[address] [place] [address] UREA NITROGEN/CREATININE (MASS RATIO) IN SER/PLAS 19.2 Normal [facility] Comment on above: Performed By: #### L [id number] ####[facility] ([facility])[address] [place] [address] CBC WITH AUTO DIFFERENTIALon 11-19-2023 Basophils (Bld) [#/Vol] 0.04 10*3/uL Normal 0.00-0.20 [facility] Comment on above: Performed By: #### L [id number] ####[facility] ([facility])[address] [place] [address] Basophils/100 WBC (Bld) 0.5 % Normal 0.0-1.0 [facility] Comment on above: Performed By: #### L [id number] ####[facility] ([facility])[address] [place] [address] Eosinophils (Bld) [#/Vol] 0.03 10*3/uL Normal 0.00-0.50 [facility] Comment on above: Performed By: #### L [id number] ####[facility] ([facility])[address] [place] [address] Eosinophils/100 WBC (Bld) 0.4 % Normal 0.0-6.0 [facility] Comment on above: Performed By: #### L [id number] ####[facility] ([facility])[address] [place] [address] Erythrocyte distribution width (RBC) [Ratio] 15.3 % High 11.5-15.0 [facility] Comment on above: Performed By: #### L [id number] ####[facility] ([facility])[address] [place] [address] ERYTHROCYTE MEAN CORPUSCULAR HEMOGLOBIN CONCENTRATION (G/DL) BY AUTOMATED 31.8 g/dL Low 32.0-35.0 [facility] Comment on above: Performed By: #### L [id number] ####[facility] ([facility])[address] [place] [address] Hematocrit (Bld) [Volume fraction] 39.0 % Normal 39.0-55.0 [facility] Comment on above: Performed By: #### L [id number] ####[facility] ([facility])[address] [place] [address] Hemoglobin (Bld) [Mass/Vol] 12.4 g/dL Low 13.0-17.0 [facility] Comment on above: Performed By: #### L [id number] ####[facility] ([facility])[address] [place] [address] Immature granulocytes (Bld) [#/Vol] 0.03 10*3/uL Normal 0.00-0.20 [facility] Comment on above: Performed By: #### L [id number] ####[facility] ([facility])[address] [place] [address] Immature granulocytes/100 WBC (Bld) 0.4 % Normal 0.0-1.0 [facility] Comment on above: Performed By: #### L [id number] ####[facility] ([facility])[address] [place] [address] Lymphocytes (Bld) [#/Vol] 1.02 10*3/uL Low 1.20-4.00 [facility] Comment on above: Performed By: #### L [id number] ####[facility] ([facility])[address] [place] [address] Lymphocytes/100 WBC (Bld) 12.1 % Low 20.0-45.0 [facility] Comment on above: Performed By: #### L [id number] ####[facility] [[email or web address] ([facility])[address] [place] [address] MCH (RBC) [Entitic mass] 29.0 pg Normal 27.0-33.0 [facility] Comment on above: Performed By: #### L [id number] ####[facility] ([facility])[address] [place] [address] MCV (RBC) [Entitic vol] 91.3 fL Normal 82.0-98.0 [facility] Comment on above: Performed By: #### L [id number] ####[facility] ([facility])[address] [place] [address] Monocytes (Bld) [#/Vol] 0.45 10*3/uL Normal 0.10-1.00 [facility] Comment on above: Performed By: #### L [id number] ####[facility] ([facility])[address] [place] [address] Monocytes/100 WBC (Bld) 5.3 % Normal 5.0-12.0 [facility] Comment on above: Performed By: #### L [id number] ####[facility] ([facility])[address] [place] [address] Neutrophils (Bld) [#/Vol] 6.88 10*3/uL Normal 1.60-7.60 [facility] Comment on above: Performed By: #### L [id number] ####[facility] ([facility])[address] [place] [address] Neutrophils/100 WBC (Bld) 81.3 % High 40.0-72.0 [facility] Comment on above: Performed By: #### L [id number] ####[facility] ([facility])[address] [place] [address] NRBC (PER 100 WBCS) BY AUTOMATED COUNT 0.0 % Normal 0 [facility] Comment on above: Performed By: #### L [id number] ####[facility] ([facility])[address] [place] [address] PLATELETS (10*3/UL) IN BLOOD AUTOMATED COUNT 167 10*3/uL Normal 150-400 [facility] Comment on above: Performed By: #### L [id number] ####[facility] ([facility])[address] [place] [address] RBC (Bld) [#/Vol] 4.27 10*6/uL Normal 4.20-5.70 [facility] Comment on above: Performed By: #### L [id number] ####[facility] ([facility])[address] [place] [address] WBC (Bld) [#/Vol] 8.45 10*3/uL Normal 4.00-10.60 [facility] Comment on above: Performed By: #### L [id number] ####[facility] ([facility])[address] [place] [address] CONSULTon 11-19-2023 CONSULT [facility] HPon 11-19-2023 HP [facility] HP H&P reviewed. The pa gil was examined and there are no changes to the H&P. [facility] NURSNOTEon 11-19-2023 NURSNOTE Family took patient' s wallet home. [facility] NURSNOTE Report called to Venessa lui RN, RN verbalized understanding. [facility] POCT GLUCOSE METER UNSOLICIT ED RESULTSon 11-19-2023 Glucose [Mass/Vol] 103 mg/dL Normal 70-105 [facility] Comment on above: Order Comment: Waive d Testing in the ED is performed under the ED CLIA certificate #[id number]. Result Comment: [email or web address] Performed By: #### L [id number] ####[facility] ([facility])[address] [place] [address] HPon 11-18-2023 HP [facility] 36on 11-14-2023 36 Patient calling want ing to know if he should resume Farxiga and/or lisinopril. He just had labs yesterday and he's got an apt with you on Saturday. Thanks. Normal [facility] 36on 11-06-2023 36 Normal [facility] 36on 10-31-2023 36 Normal [facility] Telephoneon 10-31-2023 Telephone Normal [facility] CNOVon 10-29-2023 CNOV Normal [facility] ECG COMPLETEon 10-29-2023 ECG COMPLETE Normal [facility] Telemedicineon 10-10-2023 Telemedicine Normal [facility] 36on 10-01-2023 36 Normal [facility] Documentationon 10-01-2023 Documentation Normal [facility] 30on 09-29-2023 30 Normal [facility] ANTI-XA (HEPARIN LEVEL)on HEPARIN UNFRACTIONATED (U/ML) IN PPP BY CHROMOGENIC METHOD 0.51 IU/mL Normal 0.3-0.7 [facility] Comment on above: Result Comment: [place] roxaban and Apixaban will interfere with the anti Xa assay used to monitor UFH and LMWH. Performed By: #### L [id number] ####[facility] ([facility])[address] [place] [address] HEPARIN UNFRACTIONATED (U/ML) IN PPP BY CHROMOGENIC METHOD 0.20 IU/mL Low 0.3-0.7 [facility] Comment on above: Result Comment: [place] roxaban and Apixaban will interfere with the anti Xa assay used to monitor UFH and LMWH. Performed By: #### L [id number] ####[facility] ([facility])[address] [place] [address] BASIC METABOLIC PANELon 09-16 Anion gap [Moles/Vol] 10 mmol/L Normal 7-20 [facility] Comment on above: Performed By: #### L [id number] ####[facility] ([facility])[address] [place] [address] Calcium [Mass/Vol] 9.6 mg/dL Normal 8.6-10.3 [facility] Comment on above: Performed By: #### L [id number] ####[facility] [[email or web address]] [facility] ([facility])[address] [place] [address] Chloride [Moles/Vol] 102 mmol/L Normal 98-107 [facility] Comment on above: Performed By: #### L [id number] ####[facility] ([facility])[address] [place] [address] CO2 [Moles/Vol] 27 mmol/L Normal 21-31 [facility] Comment on above: Performed By: #### L [id number] ####[facility] ([facility])[address] [place] [address] Creatinine [Mass/Vol] 2.03 mg/dL High 0.70-1.30 [facility] Comment on above: Performed By: #### L [id number] ####[facility] ([facility])[address] [place] [address] GLOMERULAR FILTRATION RATE ML/MIN/1.73 SQ M.PREDICTED 32.3 mL/min/1.73m*2 Low >60.0 [facility] Comment on above: Result Comment: The [facility]???s estimated glomerular filtration rate (eGFR) will no [...] of individuals. Performed By: #### L [id number] ####[facility] ([facility])[address] [place] [address] Glucose [Mass/Vol] 102 mg/dL High 70-100 [facility] Comment on above: Performed By: #### L [id number] ####[facility] ([facility])[address] [place] [address] Potassium [Moles/Vol] 3.9 mmol/L Normal 3.5-5.1 [facility] Comment on above: Performed By: #### L [id number] ####[facility] ([facility])[address] [place] [address] Sodium [Moles/Vol] 135 mmol/L Low 136-145 [facility] Comment on above: Performed By: #### L [id number] ####[facility] ([facility])[address] [place] [address] Urea nitrogen [Mass/Vol] 37 mg/dL High 7-25 [facility] Comment on above: Performed By: #### L [id number] ####[facility] ([facility])[address] [place] [address] UREA NITROGEN/CREATININE (MASS RATIO) IN SER/PLAS 18.2 Normal [facility] Comment on above: Performed By: #### L [id number] ####[facility] ([facility])[address] [place] [address] CBCon 09-29-2023 Erythrocyte distribution width (RBC) [Ratio] 15.0 % Normal 11.5-15.0 [facility] Comment on above: Performed By: #### L [id number] ####[facility] ([facility])[address] [place] [address] ERYTHROCYTE MEAN CORPUSCULAR HEMOGLOBIN CONCENTRATION (G/DL) BY AUTOMATED 31.7 g/dL Low 32.0-35.0 [facility] Comment on above: Performed By: #### L [id number] ####[facility] ([facility])[address] [place] [address] Hematocrit (Bld) [Volume fraction] 41.7 % Normal 39.0-55.0 [facility] Comment on above: Performed By: #### L [id number] ####[facility] ([facility])[address] [place] [address] Hemoglobin (Bld) [Mass/Vol] 13.2 g/dL Normal 13.0-17.0 [facility] Comment on above: Performed By: #### L [id number] ####[facility] ([facility])[address] [place] [address] MCH (RBC) [Entitic mass] 28.7 pg Normal 27.0-33.0 [facility] Comment on above: Performed By: #### L [id number] ####[facility] ([facility])[address] [place] [address] MCV (RBC) [Entitic vol] 90.7 fL Normal 82.0-98.0 [facility] Comment on above: Performed By: #### L [id number] ####[facility] ([facility])[address] [place] [address] PLATELETS (10*3/UL) IN BLOOD AUTOMATED COUNT 169 10*3/uL Normal 150-400 [facility] Comment on above: Performed By: #### L [id number] ####[facility] ([facility])[address] [place] [address] RBC (Bld) [#/Vol] 4.60 10*6/uL Normal 4.20-5.70 [facility] Comment on above: Performed By: #### L [id number] ####[facility] ([facility])[address] [place] [address] WBC (Bld) [#/Vol] 6.82 10*3/uL Normal 4.00-10.60 [facility] Comment on above: Performed By: #### L [id number] ####[facility] ([facility])[address] [place] [address] DSon 09-29-2023 DS Normal [facility] MAGNESIUMon 09-29-2023 Magnesium [Mass/Vol] 2.0 mg/dL Normal 1.9-2.7 [facility] Comment on above: Performed By: #### L [id number] ####[facility] ([facility])[address] [place] [address] NURSNOTEon 09-29-2023 NURSNOTE Normal [facility] PROTIME-INRon 09-29-2023 INR IN PPP BY COAGULATION ASSAY 1.20 High 0.90-1.10 [facility] Comment on above: Result Comment: ACCC P [...] CHEST 1995;[id number]. Performed By: #### L [id number] ####[facility] [employer])[address] [place] [address] PROTHROMBIN TIME (PT) IN PPP BY COAGULATION ASSAY 15.2 Seconds High 12.3-14.8 [facility] Comment on above: Performed By: #### L [id number] ####[facility] [employer])[address] [place] [address] TROPONIN Ion 09-29-2023 Troponin I.cardiac [Mass/Vol] 0.25 ng/mL Critically high 0.00-0.04 [facility] Comment on above: Result Comment: M-AR EVIOUS CRITICAL RESULT Performed By: #### L [id number] ####[facility] [employer])[address] [place] [address] 30on 09-28-2023 30 Normal [facility] 30 Normal [facility] ANTI-XA (HEPARIN LEVEL)on HEPARIN UNFRACTIONATED (U/ML) IN PPP BY CHROMOGENIC METHOD 0.23 IU/mL Low 0.3-0.7 [facility] Comment on above: Result Comment: [place] roxaban and Apixaban will interfere with the anti Xa assay used to monitor UFH and LMWH. Performed By: #### L [id number] ####[facility] ([facility])[address] [place] [address] HEPARIN UNFRACTIONATED (U/ML) IN PPP BY CHROMOGENIC METHOD 0.55 IU/mL Normal 0.3-0.7 [facility] Comment on above: Result Comment: [place] roxaban and Apixaban will interfere with the anti Xa assay used to monitor UFH and LMWH. Performed By: #### L [id number] ####[facility] ([facility])[address] [place] [address] HEPARIN UNFRACTIONATED (U/ML) IN PPP BY CHROMOGENIC METHOD 0.71 IU/mL High 0.3-0.7 [facility] Comment on above: Result Comment: [place] roxaban and Apixaban will interfere with the anti Xa assay used to monitor UFH and LMWH. Performed By: #### L [id number] ####[facility] ([facility])[address] [place] [address] CBC WITH AUTO DIFFERENTIALon 09-28-2023 Basophils (Bld) [#/Vol] 0.04 10*3/uL Normal 0.00-0.20 [facility] Comment on above: Performed By: #### L [id number] ####[facility] ([facility])[address] [place] [address] Basophils/100 WBC (Bld) 0.6 % Normal 0.0-1.0 [facility] Comment on above: Performed By: #### L [id number] ####[facility] ([facility])[address] [place] [address] Eosinophils (Bld) [#/Vol] 0.30 10*3/uL Normal 0.00-0.50 [facility] Comment on above: Performed By: #### L [id number] ####[facility] (BEAKER)[address] [place] [address] Eosinophils/100 WBC (Bld) 4.2 % Normal 0.0-6.0 [facility] Comment on above: Performed By: #### L [id number] ####[facility] (BEAKER)[address] [place] [address] Erythrocyte distribution width (RBC) [Ratio] 15.4 % High 11.5-15.0 [facility] Comment on above: Performed By: #### L [id number] ####[facility] ([facility])[address] [place] [address] ERYTHROCYTE MEAN CORPUSCULAR HEMOGLOBIN CONCENTRATION (G/DL) BY AUTOMATED 31.8 g/dL Low 32.0-35.0 [facility] Comment on above: Performed By: #### L [id number] ####[facility] ([facility])[address] [place] [address] Hematocrit (Bld) [Volume fraction] 42.1 % Normal 39.0-55.0 [facility] Comment on above: Performed By: #### L [id number] ####[facility] (BEAKER)[address] [place] [address] Hemoglobin (Bld) [Mass/Vol] 13.4 g/dL Normal 13.0-17.0 [facility] Comment on above: Performed By: #### L [id number] ####[facility] (BEAKER)[address] [place] [address] Immature granulocytes (Bld) [#/Vol] 0.03 10*3/uL Normal 0.00-0.20 [facility] Comment on above: Performed By: #### L [id number] ####[facility] (BEAKER)[address] [place] [address] Immature granulocytes/100 WBC (Bld) 0.4 % Normal 0.0-1.0 [facility] Comment on above: Performed By: #### L [id number] ####[facility] (BEAKER)[address] [place] [address] Lymphocytes (Bld) [#/Vol] 1.37 10*3/uL Normal 1.20-4.00 [facility] Comment on above: Performed By: #### L [id number] ####[facility] (BEAKER)[address] [place] [address] Lymphocytes/100 WBC (Bld) 19.2 % Low 20.0-45.0 [facility] Comment on above: Performed By: #### L [id number] ####[facility] ([facility])[address] [place] [address] MCH (RBC) [Entitic mass] 29.2 pg Normal 27.0-33.0 [facility] Comment on above: Performed By: #### L [id number] ####[facility] (BEAKER)[address] [place] [address] MCV (RBC) [Entitic vol] 91.7 fL Normal 82.0-98.0 [facility] Comment on above: Performed By: #### L [id number] ####[facility] (BEAKER)[address] [place] [address] Monocytes (Bld) [#/Vol] 0.69 10*3/uL Normal 0.10-1.00 [facility] Comment on above: Performed By: #### L [id number] ####[facility] (BEAKER)[address] [place] [address] Monocytes/100 WBC (Bld) 9.7 % Normal 5.0-12.0 [facility] Comment on above: Performed By: #### L [id number] ####[facility] (BEAKER)[address] [place] [address] Neutrophils (Bld) [#/Vol] 4.70 10*3/uL Normal 1.60-7.60 [facility] Comment on above: Performed By: #### L [id number] ####[facility] (BEAKER)[address] [place] [address] Neutrophils/100 WBC (Bld) 65.9 % Normal 40.0-72.0 [facility] Comment on above: Performed By: #### L [id number] ####[facility] ([facility])[address] [place] [address] NRBC (PER 100 WBCS) BY AUTOMATED COUNT 0.0 % Normal 0 [facility] Comment on above: Performed By: #### L [id number] ####[facility] ([facility])[address] [place] [address] PLATELETS (10*3/UL) IN BLOOD AUTOMATED COUNT 178 10*3/uL Normal 150-400 [facility] Comment on above: Performed By: #### L [id number] ####[facility] ([facility])[address] [place] [address] RBC (Bld) [#/Vol] 4.59 10*6/uL Normal 4.20-5.70 [facility] Comment on above: Performed By: #### L [id number] ####[facility] ([facility])[address] [place] [address] WBC (Bld) [#/Vol] 7.13 10*3/uL Normal 4.00-10.60 [facility] Comment on above: Performed By: #### L [id number] ####[facility] ([facility])[address] [place] [address] COMPREHENSIVE METABOLIC PANE Aldo 09-28-2023 Albumin [Mass/Vol] 4.1 g/dL Normal 3.5-5.7 [facility] Comment on above: Performed By: #### L [id number] ####[facility] ([facility])[address] [place] [address] ALP [Catalytic activity/Vol] 84 U/L Normal 34-104 [facility] Comment on above: Performed By: #### L [id number] ####[facility] (BEAKER)[address] [place] [address] ALT [Catalytic activity/Vol] 11 U/L Normal 7-52 [facility] Comment on above: Performed By: #### L [id number] ####[email or web address] (BEAKER)[address] [place] [address] Anion gap [Moles/Vol] 16 mmol/L Normal 7-20 [facility] Comment on above: Performed By: #### L [id number] ####[facility] (BEAKER)[address] [place] [address] AST [Catalytic activity/Vol] 20 U/L Normal 13-39 [facility] Comment on above: Performed By: #### L [id number] ####[facility] (BEAKER)[address] [place] [address] Bilirubin [Mass/Vol] 1.0 mg/dL Normal 0.3-1.0 [facility] Comment on above: Performed By: #### L [id number] ####[facility] (BEAKER)[address] [place] [address] Calcium [Mass/Vol] 10.0 mg/dL Normal 8.6-10.3 [facility] Comment on above: Performed By: #### L [id number] ####[facility] (BEAKER)[address] [place] [address] Chloride [Moles/Vol] 104 mmol/L Normal 98-107 [facility] Comment on above: Performed By: #### L [id number] ####[facility] (BEAKER)[address] [place] [address] CO2 [Moles/Vol] 22 mmol/L Normal 21-31 [facility] Comment on above: Performed By: #### L [id number] ####[facility] (BEAKER)[address] [place] [address] Creatinine [Mass/Vol] 2.06 mg/dL High 0.70-1.30 [facility] Comment on above: Performed By: #### L [id number] ####[facility] (BEAKER)[address] [place] [address] GLOMERULAR FILTRATION RATE ML/MIN/1.73 SQ M.PREDICTED 31.8 mL/min/1.73m*2 Low >60.0 [facility] Comment on above: Result Comment: The [facility]???s estimated glomerular filtration rate (eGFR) will no [...] of individuals. Performed By: #### L [id number] ####[facility] ([facility])[address] [place] [address] Glucose [Mass/Vol] 93 mg/dL Normal 70-100 [facility] Comment on above: Performed By: #### L [id number] ####[facility] ([facility])[address] [place] [address] Potassium [Moles/Vol] 4.2 mmol/L Normal 3.5-5.1 [facility] Comment on above: Performed By: #### L [id number] ####[facility] ([facility])[address] [place] [address] Protein [Mass/Vol] 7.1 g/dL Normal 6.0-8.3 [facility] Comment on above: Performed By: #### L [id number] ####[facility] ([facility])[address] [place] [address] Sodium [Moles/Vol] 138 mmol/L Normal 136-145 [facility] Comment on above: Performed By: #### L [id number] ####[facility] (BEAKER)[address] [place] [address] Urea nitrogen [Mass/Vol] 35 mg/dL High 7-25 [facility] Comment on above: Performed By: #### L [id number] ####[facility] ([facility])[address] [place] [address] UREA NITROGEN/CREATININE (MASS RATIO) IN SER/PLAS 17.0 Normal [facility] Comment on above: Performed By: #### L [id number] ####[facility] ([facility])[address] [facility] [facility] [place] [address] CONSULTon 09-28-2023 CONSULT Normal [facility] LIPID PANELon 09-28-2023 CHOL/HDL 2.4 mg/dL Normal [facility] Comment on above: Performed By: #### L [id number] ####[facility] ([facility])[address] [place] [address] Cholesterol [Mass/Vol] 123 mg/dL Normal 120-200 [facility] Comment on above: Performed By: #### L [id number] ####[facility] ([facility])[address] [place] [address] Magnesium [Mass/Vol] 56 mg/dL Normal 40-149 [facility] Comment on above: Result Comment: TRIG LYCERIDE REFERENCE RANGE:20 YEARS AND OLDER CARDIOVASCULAR RISKLESS THAN 150 mg/dL LOW MNWO125 TO 199 mg/dL BORDERLINE HRIY011 mg/dL AND GREATER HIGH RISK Performed By: #### L [id number] ####[facility] ([facility])[address] [place] [address] Magnesium [Mass/Vol] 61 mg/dL Normal 0-160 [facility] Comment on above: Performed By: #### L [id number] ####[facility] (BEAKER)[address] [place] [address] Magnesium [Mass/Vol] 51 mg/dL Normal 23-92 [facility] Comment on above: Performed By: #### L [id number] ####[facility] (BEAKER)[address] [place] [address] NON HDL CHOL. (LDL+VLDL) 72 Normal [facility] Comment on above: Performed By: #### L [id number] ####[facility] (BEAKER)[address] [place] [address] TOTAL VLDL-C 11 mg/dL Normal 0-40 [facility] Comment on above: Performed By: #### L [id number] ####[facility] (BEAKER)[address] [place] [address] TROPONIN Ion 09-28-2023 Troponin I.cardiac [Mass/Vol] 0.31 ng/mL Critically high 0.00-0.04 [facility] Comment on above: Result Comment: M-AR EVIOUS CRITICAL RESULTPrevious result verified on 09/27/2023 1732 on specimen/case [id number] called with component Troponin I for procedure Troponin I with value 0.32 ng/mL. Performed By: #### L [id number] ####[facility] ([facility])[address] [place] [address] TSH3 REFLEX TO FT4on 024 THYROTROPIN (MIU/L) IN SER/PLAS BY DETECTION LIMIT <= 0.05 MIU/L 1.41 mIU/L Normal 0.34-5.60 [facility] Comment on above: Performed By: #### L [id number] ####[facility] ([facility])[address] [place] [address] 30on 09-27-2023 30 Normal [facility] 30 Normal [facility] ANTI-XA (HEPARIN LEVEL)on HEPARIN UNFRACTIONATED (U/ML) IN PPP BY CHROMOGENIC METHOD 0.75 IU/mL High 0.3-0.7 [facility] Comment on above: Result Comment: Padmini roxaban and Apixaban will interfere with the anti Xa assay used to monitor UFH and LMWH. Performed By: #### L [id number] ####[facility] ([facility])[address] [place] [address] HEPARIN UNFRACTIONATED (U/ML) IN PPP BY CHROMOGENIC METHOD 0.93 IU/mL Critically high 0.3-0.7 [facility] Comment on above: Order Comment: Check anti-Xa level every 6 hours while on heparin infusion, or per protocol. Result Comment: Padmini roxaban and Apixaban will interfere with the anti Xa assay used to monitor UFH and LMWH. Performed By: #### L [id number] ####[facility] ([facility])[address] [place] [address] BASIC METABOLIC PANELon 09-16 Anion gap [Moles/Vol] 14 mmol/L Normal 7-20 [facility] Comment on above: Performed By: #### L [id number] ####[facility] [[email or web address] (BEAKER)[address] [place] [address] Calcium [Mass/Vol] 9.8 mg/dL Normal 8.6-10.3 [facility] Comment on above: Performed By: #### L [id number] ####[facility] (BEAKER)[address] [place] [address] Chloride [Moles/Vol] 105 mmol/L Normal 98-107 [facility] Comment on above: Performed By: #### L [id number] ####[facility] (BEAKER)[address] [place] [address] CO2 [Moles/Vol] 25 mmol/L Normal 21-31 [facility] Comment on above: Performed By: #### L [id number] ####[facility] (BEAKER)[address] [place] [address] Creatinine [Mass/Vol] 2.01 mg/dL High 0.70-1.30 [facility] Comment on above: Performed By: #### L [id number] ####[facility] (BEAKER)[address] [place] [address] GLOMERULAR FILTRATION RATE ML/MIN/1.73 SQ M.PREDICTED 32.7 mL/min/1.73m*2 Low >60.0 [facility] Comment on above: Result Comment: The [facility]???s estimated glomerular filtration rate (eGFR) will no [...] of individuals. Performed By: #### L [id number] ####[facility] ([facility])[address] [place] [address] Glucose [Mass/Vol] 103 mg/dL High 70-100 [facility] Comment on above: Performed By: #### L [id number] ####[facility] ([facility])[address] [place] [address] Potassium [Moles/Vol] 4.3 mmol/L Normal 3.5-5.1 [facility] Comment on above: Performed By: #### L [id number] ####[facility] ([facility])[address] [place] [address] Sodium [Moles/Vol] 140 mmol/L Normal 136-145 [facility] Comment on above: Performed By: #### L [id number] ####[facility] ([facility])[address] [place] [address] Urea nitrogen [Mass/Vol] 37 mg/dL High 7-25 [facility] Comment on above: Performed By: #### L [id number] ####[facility] ([facility])[address] [place] [address] UREA NITROGEN/CREATININE (MASS RATIO) IN SER/PLAS 18.4 Normal [facility] Comment on above: Performed By: #### L [id number] ####[facility] ([facility])[address] [place] [address] CONSULTon 09-27-2023 CONSULT Normal [facility] HPon 09-27-2023 HP Normal [facility] MAGNESIUMon 09-27-2023 Magnesium [Mass/Vol] 2.0 mg/dL Normal 1.9-2.7 [facility] Comment on above: Performed By: #### L [id number] ####[facility] ([facility])[address] [place] [address] Orders Onlyon 09-27-2023 Orders Only Normal [facility] PLATELET COUNTon 09-27-2023 PLATELETS (10*3/UL) IN BLOOD AUTOMATED COUNT 165 10*3/uL Normal 150-400 [facility] Comment on above: Performed By: #### L [id number] ####[facility] ([facility])[address] [place] [address] TROPONIN Ion 09-27-2023 Troponin I.cardiac [Mass/Vol] 0.31 ng/mL Critically high 0.00-0.04 [facility] Comment on above: Result Comment: M-AR EVIOUS CRITICAL RESULTPrevious result verified on 09/27/2023 1732 on specimen/case [id number] called with component Troponin I for procedure Troponin I with value 0.32 ng/mL. Performed By: #### L [id number] ####[facility] ([facility])[address] [place] [address] Troponin I.cardiac [Mass/Vol] 0.32 ng/mL Critically high 0.00-0.04 [facility] Comment on above: Result Comment: M-TR OPONIN INITIAL CRITICAL HIGH; RESPUN AND RETESTED Performed By: #### L [id number] ####[facility] ([facility])[address] [place] [address] PSA SerPl-mCncon 09-24-2023 Prostate specific Ag [Mass/Vol] ng/mL Normal <2.60 [facility] Comment on above: Order Comment: Speci men Type: BLOOD SPECIMENOrdering Facility: [facility] Address: [address] [place] [address] Result Comment: Anival juarez PSA test methodology used is the Electrochemiluminescence Immunoassay by [employer]. Total PSA values by differing methodologies cannot be interchanged. Performed By: #### 2 857-1 ####[facility] [id number] [place] [address] [place] ICD REMOTE CHECKon 3 AV Delay Adaptive Paced Minimum (ms) 200 ms [facility] AV Delay Adaptive Sensed Minimum (ms) 170 ms [facility] Bj RA Pacing Amplitude (volts) 2.0 V [facility] Bj RA Pacing Polarity BI [facility] Bj RA Pacing Pulse Width (ms) 0.5 ms [facility] Bj RA Sensing Amplitude (mvolts) 0.25 mV [facility] Bj RA Sensing Polarity BI [facility] Bj RV Pacing Amplitude (volts) 2.0 V [facility] Bj RV Pacing Polarity BI [facility] Bj RV Pacing Pulse Width (ms) 0.5 ms [facility] Bj RV Sensing Amplitude (mvolts) 0.3 mV [facility] Bj RV Sensing Polarity BI [facility] Detection Configuration (Vent) 2 - Zone [facility] FastVT_Detection Interval 250 ms [facility] FastVT_Therapy Configuration 1 ATP(s) + 8 Shock(s) [facility] ICD FastVT DetectionStatus ENABLED [facility] ICD-AMS EPISODES 170 {beats}/min [facility] ICD-ATP Episodes (Vent) 0 [facility] ICD-ATRIALFIBRILLAT ION 2 [facility] ICD-ATRIALTACHYCARD IA 2 [facility] ICD-ATRIALTACHYCARD IA 5 [facility] ICD-Device Mfg BSX [facility] ICD-Fast Ventricular Tachycardia 5 [facility] ICD-LEADIMPEDANCEAT RIAL 746 ohm [facility] ICD-Percent Pacing (Atrial) 1 % [facility] ICD-Percent Pacing (Vent) 0 % [facility] ICD-Shocks Aborted (Vent) 0 [facility] QCK-AOFAAH-CDXOGRMN D 0 [facility] ICD-SHOCKSABORTED 0 [facility] ICD-SHOCKSDELIVERED VENTRICULAR 0 [facility] ICD-Ventricular Fibrillation 0 [facility] Lead Impedance (RV) 426 ohm [facility] Lead Impedance High Voltage 49 ohm [facility] Lead1 Mfg BSX [facility] Lead2 Mfg BSX [facility] Location RV [facility] Location RA [facility] Lower Rate (bpm) 50 {beats}/min [facility] Max Sensor Rate (bpm) 130 {beats}/min [facility] MDT_PROG_TACHY_ZONE _DETECTIONS_STATUS ENABLED [facility] Model D142 INOGEN [facility] Model [address] [place] 4-Front [facility] Model 7741 Ingevity MRI [facility] Pacing Mode DDDR [facility] Serial Number [id number] [facility] Serial Number [id number] [facility] Serial Number [id number] [facility] Test Charge Energy 23 J [facility] Test Charge Time 10.2 s [facility] Therapy Status (Vent) Enabled [facility] Thresh RA Capture Amplitude (volts) 0.6 V [facility] Thresh RA Capture Duration (ms) 0.5 ms [facility] Thresh RV Capture Amplitude (VOLTS) 0.5 V [facility] Thresh RV Capture Duration (MS) 0.5 ms [facility] Tracking Rate (bpm) 130 {beats}/min [facility] VF Zone Detection Interval 250 ms [facility] VF Zone Therapy Configuration 1 ATP(s) + 8 Shock(s) [facility] No Panel Informationon 02-21 BLANK _ [facility] ICD-ATRIALTACHYCARD IA 0 [facility] ICD-Fast Ventricular Tachycardia 0 [facility] Implant Date 03/24/2019 [facility] FREE T3on 02-08-2023 FREE T3 3.21 pg/mlL Normal 2.18-3.98 [facility] Comment on above: Performed By: #### V ITAD #### [facility] [address] [address] [address] Silva Burnett FREE T4on 02-08-2023 Free T4 [Mass/Vol] 0.74 ng/dL Critically low 0.76-1.46 Th [facility] Comment on above: Performed By: #### B MP, BNP #### [facility] [address] [address] [address] Silva Burnett TSHon 02-08-2023 TSH 0.168 uIU/mL Critically low 0.358-3.740 [facility] Comment on above: Performed By: #### V ITAD #### [facility] [address] [address] [address] Silva Burnett ICD REMOTE CHECKon 3 AV Delay Adaptive Paced Minimum (ms) 200 ms [facility] AV Delay Adaptive Sensed Minimum (ms) 170 ms [facility] Bj RA Pacing Amplitude (volts) 2 V [facility] Bj RA Pacing Polarity BI [facility] Bj RA Pacing Pulse Width (ms) 0.5 ms [facility] Bj RA Sensing Amplitude (mvolts) 0.25 mV [facility] Bj RA Sensing Polarity BI [facility] Bj RV Pacing Amplitude (volts) 2 V [facility] Bj RV Pacing Polarity BI [facility] Bj RV Pacing Pulse Width (ms) 0.5 ms [facility] Bj RV Sensing Amplitude (mvolts) 0.3 mV [facility] Bj RV Sensing Polarity BI [facility] Detection Configuration (Vent) 2 - Zone [facility] FastVT_Detection Interval 250 ms [facility] FastVT_Therapy Configuration 1 ATP(s) + 8 Shock(s) [facility] ICD FastVT DetectionStatus ENABLED [facility] ICD-AMS EPISODES 170 {beats}/min [facility] ICD-ATP Episodes (Vent) 0 [facility] ICD-ATRIALFIBRILLAT ION 1 [facility] ICD-ATRIALTACHYCARD IA 1 [facility] ICD-ATRIALTACHYCARD IA 3 [facility] ICD-Device Mfg BSX [facility] ICD-Fast Ventricular Tachycardia 3 [facility] ICD-LEADIMPEDANCEAT RIAL 786 ohm [facility] ICD-Percent Pacing (Atrial) 1 % [facility] ICD-Percent Pacing (Vent) 0 % [facility] ICD-Shocks Aborted (Vent) 0 [facility] CCG-VHOVZW-PMPRYDVP D 0 [facility] ICD-SHOCKSABORTED 0 [facility] ICD-SHOCKSDELIVERED VENTRICULAR 0 [facility] ICD-Ventricular Fibrillation 0 [facility] Lead Impedance (RV) 458 ohm [facility] Lead Impedance High Voltage 53 ohm [facility] Lead1 Mfg BSX [facility] Lead2 Mfg BSX [facility] Location RV [facility] Location RA [facility] Lower Rate (bpm) 50 {beats}/min [facility] Max Sensor Rate (bpm) 130 {beats}/min [facility] MDT_PROG_TACHY_ZONE _DETECTIONS_STATUS ENABLED [facility] Model D142 INOGEN [facility] Model [address] [place] 4-Front [facility] Model 7741 Ingevity MRI [facility] Pacing Mode DDDR [facility] Serial Number [id number] [facility] Serial Number [id number] [facility] Serial Number [id number] [facility] Test Charge Energy 23 J [facility] Test Charge Time 10.2 s [facility] Therapy Status (Vent) Enabled [facility] Thresh RA Capture Amplitude (volts) 0.6 V [facility] Thresh RA Capture Duration (ms) 0.5 ms [facility] Thresh RV Capture Amplitude (VOLTS) 0.5 V [facility] Thresh RV Capture Duration (MS) 0.5 ms [facility] Tracking Rate (bpm) 130 {beats}/min [facility] VF Zone Detection Interval 250 ms [facility] VF Zone Therapy Configuration 1 ATP(s) + 8 Shock(s) [facility] No Panel Informationon 11-07 BLANK _ [facility] ICD-ATRIALTACHYCARD IA 0 [facility] ICD-Fast Ventricular Tachycardia 0 [facility] Implant Date 03/24/2019 [facility] Comprehensive metabolic 2000 panelon 10-26-2022 Albumin [Mass/Vol] 4.0 g/dL 3.9 - 4.9 g/dL [facility] ALP [Catalytic activity/Vol] 103 U/L 38 - 113 U/L [facility] ALT [Catalytic activity/Vol] 15 U/L 10 - 54 U/L [facility] Anion gap [Moles/Vol] 17 mmol/L 9 - 18 mmol/L [facility] AST [Catalytic activity/Vol] 26 U/L 14 - 40 U/L [facility] Bilirubin [Mass/Vol] 0.6 mg/dL 0.2 - 1.3 mg/dL [facility] Calcium [Mass/Vol] 10.2 mg/dL 8.5 - 10. 2 mg/dL [facility] Chloride [Moles/Vol] 103 mmol/L 97 - 105 mmol/L [facility] CO2 [Moles/Vol] 20 mmol/L Low 22 - 30 mmol/L [facility] Creatinine [Mass/Vol] 1.89 mg/dL High 0.73 - 1.22 mg/dL [facility] Estimated Glomerular Filtration Rate 35 mL/min/1.73m Low >=60 mL/min/1.73 m [facility] Glucose [Mass/Vol] 103 mg/dL High 74 - 99 mg/dL [facility] Potassium [Moles/Vol] 5.5 mmol/L High 3.7 - 5.1 mmol/L [facility] Protein [Mass/Vol] 7.7 g/dL 6.3 - 8.0 g/dL [facility] Sodium [Moles/Vol] 140 mmol/L 136 - 144 mmol/L [facility] Urea nitrogen [Mass/Vol] 40 mg/dL High 9 - 24 mg/dL [facility] NT PRO BNPon 10-26-2022 Natriuretic peptide.B prohormone N-Terminal [Mass/Vol] 5553 pg/mL High <450 pg/mL [facility] CBC W Auto Differential pane l (Bld)on 10-25-2022 Basophils (Bld) [#/Vol] <0.11 k/uL [facility] Basophils/100 WBC (Bld) 0.3 % [facility] Differential cell count method Nom (Bld) Auto [facility] Eosinophils (Bld) [#/Vol] 0.20 10*3/uL <0.46 k/uL [facility] Eosinophils/100 WBC (Bld) 2.7 % [facility] Erythrocyte distribution width (RBC) [Ratio] 13.6 % 11.5 - 15.0 % [facility] Hematocrit (Bld) [Volume fraction] 47.3 % 39.0 - 51.0 % [facility] Hemoglobin (Bld) [Mass/Vol] 14.6 g/dL 13.0 - 17.0 g/dL [facility] Immature granulocytes (Bld) [#/Vol] <0.10 k/uL [facility] Immature granulocytes/100 WBC (Bld) 0.3 % [facility] Lymphocytes (Bld) [#/Vol] 1.40 10*3/uL 1.00 - 4.00 k/uL [facility] Lymphocytes/100 WBC (Bld) 19.0 % [facility] MCH (RBC) [Entitic mass] 29.1 pg 26.0 - 34.0 pg [facility] MCHC (RBC) [Mass/Vol] 30.9 g/dL 30.5 - 36.0 g/dL [facility] MCV (RBC) [Entitic vol] 94.2 fL 80.0 - 100.0 fL [facility] Monocytes (Bld) [#/Vol] 0.65 10*3/uL <0.87 k/uL [facility] Monocytes/100 WBC (Bld) 8.8 % [facility] Neutrophils (Bld) [#/Vol] 5.06 10*3/uL 1.45 - 7.50 k/uL [facility] Neutrophils/100 WBC (Bld) 68.9 % [facility] Nucleated RBC (Bld) [#/Vol] <0.01 k/uL [facility] Nucleated RBC/100 WBC (Bld) [Ratio] 0.0 /100 WBC [facility] Platelet mean volume (Bld) [Entitic vol] 10.7 fL 9.0 - 12.7 fL [facility] Platelets (Bld) [#/Vol] 159 10*3/uL 150 - 400 k/uL [facility] RBC (Bld) [#/Vol] 5.02 10*6/uL 4.20 - 6.0 0 m/uL [facility] WBC (Bld) [#/Vol] 7.35 10*3/uL 3.70 - 11.00 k/uL [facility] GLUCOSE, BLOOD (POC)on 10-25 Glucose [Mass/Vol] 94 mg/dL 74 - 99 mg/dL [facility] Glucose [Mass/Vol] 101 mg/dL Abnormal 74 - 99 mg/dL [facility] No Panel Informationon 10-25 [facility] BNPon 08-30-2022 Natriuretic peptide B (Bld) [Mass/Vol] 5149.0 pg/mL Critically high <=1,800.0 [facility] Comment on above: Performed By: #### B MP, BNP #### [facility] [address] [place] [address] Dr. Silva Burnett PROF CHEM 8 (BAS METB)on Anion gap [Moles/Vol] 9.3 mmol/L Normal [facility] Comment on above: Performed By: #### B MP, BNP #### [facility] [address] [place] [address] Dr. Silva Burnett Calcium [Mass/Vol] 9.5 mg/dL Normal 8.5-10.1 [facility] Comment on above: Performed By: #### B MP, BNP #### [facility] [address] [place] [address] Dr. Silva Burnett Chloride [Moles/Vol] 103 mmol/L Normal 98-107 [facility] Comment on above: Performed By: #### B MP, BNP #### [facility] [address] [place] [address] Dr. Silva Burnett CO2 [Moles/Vol] 30.2 mmol/L Normal 21.0-32.0 [facility] Comment on above: Performed By: #### B MP, BNP #### [facility] [address] [place] [address] Dr. Silva Burnett Creatinine [Mass/Vol] 1.86 mg/dL Critically high 0.70-1.30 [facility] Comment on above: Performed By: #### B MP, BNP #### [facility] [address] [place] [address] Dr. Silva Burnett EGFR-AF NICARAGUAN 43 mL/min/1.73m2 Critically low >=60 [facility] Comment on above: Performed By: #### B MP, BNP #### [facility] [address] [place] [address] Dr. Silva Burnett EGFR-NON AF NICARAGUAN 35 mL/min/1.73m2 Critically low >=60 [facility] Comment on above: Performed By: #### B MP, BNP #### [facility] [address] [place] [address] Dr. Silva Burnett Glucose [Mass/Vol] 108 mg/dL Critically high 74-106 [facility] Comment on above: Performed By: #### B MP, BNP #### [facility] [address] [place] [address] Dr. Silva Burnett Potassium [Moles/Vol] 4.5 mmol/L Normal 3.5-5.1 [facility] Comment on above: Performed By: #### B MP, BNP #### [facility] [address] [place] [address] Dr. Silva Burnett Sodium [Moles/Vol] 138 mmol/L Normal 136-145 [facility] Comment on above: Performed By: #### B MP, BNP #### [facility] [address] [place] [address] Dr. Silva Burnett Urea nitrogen [Mass/Vol] 27.0 mg/dL Critically high 7.0-18.0 [facility] Comment on above: Performed By: #### B MP, BNP #### [facility] [address] [place] [address] Dr. Silva Burnett Urea nitrogen/Creatinine [Mass ratio] 14.5 mg/mg Normal [facility] Comment on above: Performed By: #### B MP, BNP #### [facility] [address] [place] [address] Dr. Silva Burnett ICD REMOTE CHECKon 11-22-202 2 AV Delay Adaptive Paced Minimum (ms) 200 ms [facility] AV Delay Adaptive Sensed Minimum (ms) 170 ms [facility] Bj RA Pacing Amplitude (volts) 2 V [facility] Bj RA Pacing Polarity BI [facility] Bj RA Pacing Pulse Width (ms) 0.5 ms [facility] Bj RA Sensing Amplitude (mvolts) 0.25 mV [facility] Bj RA Sensing Polarity BI [facility] Bj RV Pacing Amplitude (volts) 2 V [facility] Bj RV Pacing Polarity BI [facility] Bj RV Pacing Pulse Width (ms) 0.5 ms [facility] Bj RV Sensing Amplitude (mvolts) 0.3 mV [facility] Bj RV Sensing Polarity BI [facility] Detection Configuration (Vent) 2 - Zone [facility] FastVT_Detection Interval 250 ms [facility] FastVT_Therapy Configuration 1 ATP(s) + 8 Shock(s) [facility] ICD FastVT DetectionStatus ENABLED [facility] ICD-AMS EPISODES 170 {beats}/min [facility] ICD-ATP Episodes (Vent) 0 [facility] ICD-ATRIALFIBRILLAT ION 0 [facility] ICD-ATRIALTACHYCARD IA 1 [facility] ICD-Device Mfg BSX [facility] ICD-Fast Ventricular Tachycardia 1 [facility] ICD-LEADIMPEDANCEAT RIAL 743 ohm [facility] ICD-Percent Pacing (Atrial) 0 % [facility] ICD-Percent Pacing (Vent) 0 % [facility] ICD-Shocks Aborted (Vent) 0 [facility] [id number] D 0 [facility] ICD-SHOCKSABORTED 0 [facility] ICD-SHOCKSDELIVERED VENTRICULAR 0 [facility] ICD-Ventricular Fibrillation 0 [facility] Lead Impedance (RV) 431 ohm [facility] Lead Impedance High Voltage 48 ohm [facility] Lead1 Mfg BSX [facility] Lead2 Mfg BSX [facility] Location RV [facility] Location RA [facility] Lower Rate (bpm) 50 {beats}/min [facility] Max Sensor Rate (bpm) 130 {beats}/min [facility] MDT_PROG_TACHY_ZONE _DETECTIONS_STATUS ENABLED [facility] Model D142 INOGEN [facility] Model [address] [place] 4-Front [facility] Model 7741 Ingevity MRI [facility] Pacing Mode DDDR [facility] Serial Number [id number] [facility] Serial Number [id number] [facility] Serial Number [id number] [facility] Test Charge Energy 23 J [facility] Test Charge Time 10.1 s [facility] Therapy Status (Vent) Enabled [facility] Thresh RA Capture Amplitude (volts) 0.6 V [facility] Thresh RA Capture Duration (ms) 0.5 ms [facility] Thresh RV Capture Amplitude (VOLTS) 0.5 V [facility] Thresh RV Capture Duration (MS) 0.5 ms [facility] Tracking Rate (bpm) 130 {beats}/min [facility] VF Zone Detection Interval 250 ms [facility] VF Zone Therapy Configuration 1 ATP(s) + 8 Shock(s) [facility] No Panel Informationon 08-07 BLANK _ [facility] ICD-ATRIALTACHYCARD IA 0 [facility] ICD-Fast Ventricular Tachycardia 0 [facility] Implant Date 03/24/2019 [facility] BNPon 07-23-2022 Natriuretic peptide B (Bld) [Mass/Vol] 5638.0 pg/mL Critically high <=1,800.0 [facility] Comment on above: Performed By: #### B MP, BNP, LIPID #### [facility] [address] [address] [address] Silva Burnett LIPID PROFILEon 07-23-2022 CHOL-HDL RATIO NORM SEE BELOW Normal [facility] Comment on above: Result Comment: 3.3 - 4.4 LOW RISK 4.4 - 7.1 AVERAGE RISK 7.1 - 11.0 MODERATE RISK >11.0 HIGH RISK Performed By: #### B MP, BNP, LIPID #### [facility] [address] [address] [address] Silva Burnett Cholesterol [Mass/Vol] 126 mg/dL Normal <=200 [facility] Comment on above: Performed By: #### B MP, BNP, LIPID #### [facility] [address] [address] [address] Silva Burnett Cholesterol in HDL [Mass/Vol] 51 mg/dL Normal 40-60 [facility] Comment on above: Performed By: #### B MP, BNP, LIPID #### [facility] [address] [address] [address] Silva Burnett Cholesterol in LDL [Mass/Vol] 61.4 mg/dL Normal [facility] Comment on above: Performed By: #### B MP, BNP, LIPID #### [facility] [address] [place] [address] Dr. Silva Burnett Cholesterol.total/C holesterol in HDL [Mass ratio] 2.5 {ratio} Normal [facility] Comment on above: Performed By: #### B MP, BNP, LIPID #### [facility] [address] [place] [address] Dr. Silva Burnett HDL NORMAL > or = 60 mg/dl - LO W CARDIOVASCULAR RISK <40 mg/dl - HIGH CARDIOVASCULAR RISK Normal [facility] Comment on above: Performed By: #### B MP, BNP, LIPID #### [facility] [address] [place] [address] Dr. Silva Burnett LDL CALC NORMAL SEE BELOW Normal [facility] Comment on above: Result Comment: <100 mg/dl OPTIMAL 100 - 129 mg/dl NEAR OR ABOVE OPTIMAL 130 - 159 mg/dl BORDERLINE HIGH 160 - 189 mg/dl HIGH >190 mg/dl VERY HIGH Performed By: #### B MP, BNP, LIPID #### [facility] [address] [place] [address] Dr. Silva Burnett Triglyceride [Mass/Vol] 68 mg/dL Normal <=150 [facility] Comment on above: Performed By: #### B MP, BNP, LIPID #### [facility] [address] [place] [address] Dr. Silva Burnett VLDL CALC 13.6 mg/dL Normal [facility] Comment on above: Performed By: #### B MP, BNP, LIPID #### [facility] [address] [address] [address] Silva Burnett PROF CHEM 8 (BAS METB)on Anion gap [Moles/Vol] 10.2 mmol/L Normal [facility] Comment on above: Performed By: #### B MP, BNP, LIPID #### [facility] [address] [place] [address] Dr. Silva Burnett Calcium [Mass/Vol] 9.3 mg/dL Normal 8.5-10.1 [facility] Comment on above: Performed By: #### B MP, BNP, LIPID #### [facility] [address] [place] [address] Dr. Silva Burnett Chloride [Moles/Vol] 102 mmol/L Normal 98-107 [facility] Comment on above: Performed By: #### B MP, BNP, LIPID #### [facility] [address] [place] [address] Dr. Silva Burnett CO2 [Moles/Vol] 29.7 mmol/L Normal 21.0-32.0 [facility] Comment on above: Performed By: #### B MP, BNP, LIPID #### [facility] [address] [place] [address] Dr. Silva Burnett Creatinine [Mass/Vol] 1.68 mg/dL Critically high 0.70-1.30 [facility] Comment on above: Performed By: #### B MP, BNP, LIPID #### [facility] [address] [place] [address] Dr. Silva Burnett EGFR-AF NICARAGUAN 48 mL/min/1.73m2 Critically low >=60 [facility] Comment on above: Performed By: #### B MP, BNP, LIPID #### [facility] [address] [place] [address] Dr. Silva Burnett EGFR-NON AF NICARAGUAN 40 mL/min/1.73m2 Critically low >=60 [facility] Comment on above: Performed By: #### B MP, BNP, LIPID #### [facility] [address] [place] [address] Dr. Silva Burnett Glucose [Mass/Vol] 97 mg/dL Normal 74-106 [facility] Comment on above: Performed By: #### B MP, BNP, LIPID #### [facility] [address] [place] [address] Dr. Silva Burnett Potassium [Moles/Vol] 3.9 mmol/L Normal 3.5-5.1 [facility] Comment on above: Performed By: #### B MP, BNP, LIPID #### [facility] [address] [place] [address] Dr. Silva Burnett Sodium [Moles/Vol] 138 mmol/L Normal 136-145 [facility] Comment on above: Performed By: #### B MP, BNP, LIPID #### [facility] [address] [place] [address] Dr. Sliva Burnett Urea nitrogen [Mass/Vol] 28.0 mg/dL Critically high 7.0-18.0 [facility] Comment on above: Performed By: #### B MP, BNP, LIPID #### [facility] [address] [place] [address] Dr. Silav Burnett Urea nitrogen/Creatinine [Mass ratio] 16.7 mg/mg Normal [facility] Comment on above: Performed By: #### B MP, BNP, LIPID #### [facility] [address] [place] [address] Dr. Silva Burnett FREE T3on 07-18-2022 FREE T3 3.48 pg/mlL Normal 2.18-3.98 [facility] Comment on above: Performed By: #### V ITAD #### [facility] [address] [place] [address] Dr. Silva Burnett FREE T4on 07-18-2022 Free T4 [Mass/Vol] 0.76 ng/dL Normal 0.76-1.46 [facility] Comment on above: Performed By: #### F T4 #### [facility] [address] [place] [address] Dr. Silva Burnett TSHon 07-18-2022 TSH 0.074 uIU/mL Critically low 0.358-3.740 [facility] Comment on above: Performed By: #### V ITAD #### [facility] [address] [place] [address] Dr. Silva Burnett TESTOSTERONE, FREE,DIRECT, T OTALon 07-02-2022 Free Testosterone(Direct ) 1.2 pg/mL Critically low 6.6-18.1 [facility] Comment on above: Result Comment: Perf ormed at: BN Performed By: #### B MP, BNP #### [facility] [address] [place] [address] Dr. Silva Burnett Testosterone [Mass/Vol] 103 ng/dL Critically low 264-916 [facility] Comment on above: Result Comment: Adul t male reference interval is based on a population of healthy nonobese males (BMI <30) between 19 and 39 years old. Keisha et.al. JCEM 2017,102;0614-0805. PMID: [id number]. Performed at: CB Performed By: #### B MP, BNP #### [facility] [address] [place] [address] Dr. Silva Burnett CORTISOLon 06-29-2022 Cortisol 9.8 ug/dL Normal [facility] Comment on above: Result Comment: Dale isol AM 6.2 - 19.4 Cortisol PM 2.3 - 11.9 Performed By: #### B MP, BNP #### [facility] [address] [place] [address] Dr. Silva Burnett BNPon 06-27-2022 Natriuretic peptide B (Bld) [Mass/Vol] 5384.0 pg/mL Critically high <=1,800.0 [facility] Comment on above: Performed By: #### B MP, BNP #### [facility] [address] [place] [address] Dr. Silva Burnett CBC AUTO DIFFon 06-27-2022 BASO # 0.0 103/ul Normal 0.0-0.1 [facility] Comment on above: Performed By: #### B MP, BNP #### [facility] [address] [place] [address] Dr. Silva Burnett Basophils/100 WBC (Bld) 0.6 % Normal 0.2-2.0 [facility] Comment on above: Performed By: #### B MP, BNP #### [facility] [address] [place] [address] Dr. Silva Burnett EO # 0.4 103/ul Normal 0.0-0.7 [facility] Comment on above: Performed By: #### B MP, BNP #### [facility] [address] [place] [address] Dr. Silva Burnett Eosinophils/100 WBC (Bld) 8.0 % Critically high 0.9-7.0 [facility] Comment on above: Performed By: #### B MP, BNP #### [facility] [address] [place] [address] Dr. Silva Burnett Erythrocyte distribution width (RBC) [Ratio] 15.3 % Critically high 11.0-15.0 [facility] Comment on above: Performed By: #### B MP, BNP #### [facility] [address] [place] [address] Dr. Silva Burnett Hematocrit (Bld) [Volume fraction] 41.0 % Critically low 42.0-54.0 [facility] Comment on above: Performed By: #### B MP, BNP #### [facility] [address] [place] [address] Dr. Silva Burnett Hemoglobin (Bld) [Mass/Vol] 12.8 g/dL Critically low 14.0-18.0 [facility] Comment on above: Performed By: #### B MP, BNP #### [facility] [address] [place] [address] Dr. Silva Burnett IG # 0.02 10e3/ul Normal 0.00-0.03 [facility] Comment on above: Performed By: #### B MP, BNP #### [facility] [address] [place] [address] Dr. Silva Burnett IG % 0.4 % Normal 0.0-0.5 [facility] Comment on above: Performed By: #### B MP, BNP #### [facility] [address] [place] [address] Dr. Silva Burnett LYMPH # 1.3 103/ul Normal 1.2-3.8 [facility] Comment on above: Performed By: #### B MP, BNP #### [facility] [address] [place] [address] Dr. Silva Burnett Lymphocytes/100 WBC (Bld) 25.8 % Normal 20.5-60.0 [facility] Comment on above: Performed By: #### B MP, BNP #### [facility] [address] [place] [address] Dr. Silva Burnett MANUAL DIFF REQ NO Normal [facility] Comment on above: Performed By: #### B MP, BNP #### [facility] [address] [place] [address] Dr. Silva Burnett MCH (RBC) [Entitic mass] 28.9 pg Normal 25.9-34.0 [facility] Comment on above: Performed By: #### B MP, BNP #### [facility] [address] [place] [address] Dr. Silva Burnett MCHC (RBC) [Mass/Vol] 31.2 g/dL Normal 29.9-35.2 [facility] Comment on above: Performed By: #### B MP, BNP #### [facility] [address] [place] [address] Dr. Silva Burnett MCV (RBC) [Entitic vol] 92.6 fL Normal 80.0-94.0 [facility] Comment on above: Performed By: #### B MP, BNP #### [facility] [address] [place] [address] Dr. Silva Burnett MONO # 0.6 103/ul Normal 0.3-0.8 [facility] Comment on above: Performed By: #### B MP, BNP #### [facility] [address] [place] [address] Dr. Silva Burnett Monocytes/100 WBC (Bld) 11.1 % Normal 1.7-12.0 [facility] Comment on above: Performed By: #### B MP, BNP #### [facility] [address] [place] [address] Dr. Silva Burnett NEUT # 2.8 103/ul Normal 1.4-6.5 [facility] Comment on above: Performed By: #### B MP, BNP #### [facility] [address] [place] [address] Dr. Silva Burnett Neutrophils/100 WBC (Bld) 54.1 % Normal 43.0-75.0 [facility] Comment on above: Performed By: #### B MP, BNP #### [facility] [address] [address] [address] Silva Burnett Platelet mean volume (Bld) [Entitic vol] 10.0 fL Normal 9.5-13.5 [facility] Comment on above: Performed By: #### B MP, BNP #### [facility] [address] [address] [address] Silva Burnett PLT 144 103/ul Critically low 150-450 [facility] Comment on above: Performed By: #### B MP, BNP #### [facility] [address] [address] [address] Silva Burnett RBC 4.43 106/ul Critically low 4.70-6.10 [facility] Comment on above: Performed By: #### B MP, BNP #### [facility] [address] [place] [address] Dr. Silva Burnett WBC 5.1 103/ul Normal 4.0-11.0 [facility] Comment on above: Performed By: #### B MP, BNP #### [facility] [address] [place] [address] Dr. Silva Burnett PROF CHEM 8 (BAS METB)on Anion gap [Moles/Vol] 10.2 mmol/L Normal [facility] Comment on above: Performed By: #### B MP, BNP #### [facility] [address] [place] [address] Dr. Silva Burnett Calcium [Mass/Vol] 8.9 mg/dL Normal 8.5-10.1 [facility] Comment on above: Performed By: #### B MP, BNP #### [facility] [address] [address] [address] Silva Burnett Chloride [Moles/Vol] 104 mmol/L Normal 98-107 [facility] Comment on above: Performed By: #### B MP, BNP #### [facility] [address] [place] [address] Dr. Silva Burnett CO2 [Moles/Vol] 27.1 mmol/L Normal 21.0-32.0 [facility] Comment on above: Performed By: #### B MP, BNP #### [facility] [address] [address] [address] Silva Burnett Creatinine [Mass/Vol] 1.61 mg/dL Critically high 0.70-1.30 [facility] Comment on above: Performed By: #### B MP, BNP #### [facility] [address] [address] [address] Silva Burnett EGFR-AF NICARAGUAN 50 mL/min/1.73m2 Critically low >=60 [facility] Comment on above: Performed By: #### B MP, BNP #### [facility] [address] [place] [address] Dr. Silva Burnett EGFR-NON AF NICARAGUAN 41 mL/min/1.73m2 Critically low >=60 [facility] Comment on above: Performed By: #### B MP, BNP #### [facility] [address] [place] [address] Dr. Silva Burnett Glucose [Mass/Vol] 89 mg/dL Normal 74-106 [facility] Comment on above: Performed By: #### B MP, BNP #### [facility] [address] [place] [address] Dr. Silva Burnett Potassium [Moles/Vol] 4.3 mmol/L Normal 3.5-5.1 [facility] Comment on above: Performed By: #### B MP, BNP #### [facility] [address] [place] [address] Dr. Silva Burnett Sodium [Moles/Vol] 137 mmol/L Normal 136-145 [facility] Comment on above: Performed By: #### B MP, BNP #### [facility] [address] [place] [address] Dr. Silva Burnett Urea nitrogen [Mass/Vol] 28.0 mg/dL Critically high 7.0-18.0 [facility] Comment on above: Performed By: #### B MP, BNP #### [facility] [address] [place] [address] Dr. Silva Burnett Urea nitrogen/Creatinine [Mass ratio] 17.4 mg/mg Normal [facility] Comment on above: Performed By: #### B MP, BNP #### [facility] [address] [place] [address] Dr. Silva Burnett VITAMIN D 25 OHon 06-27-2022 VIT D 25-OH 85.2 ng/mL Normal [facility] Comment on above: Performed By: #### V ITAD #### [facility] [address] [place] [address] Dr. Silva Burnett VIT D RANGES SEE BELOW Normal [facility] Comment on above: Result Comment: <20 ng/mL Vit D deficient 20 - <30 ng/mL Vit D insufficient 30 - 100 ng/mL Vit D sufficient >100 ng/mL Potential Toxicity Performed By: #### V ITAD #### [facility] [address] [place] [address] Dr. Silva Burnett CREATININEon 06-14-2022 Creatinine [Mass/Vol] 1.71 mg/dL Critically high 0.70-1.30 [facility] Comment on above: Performed By: #### B MP, BNP #### [facility] [address] [place] [address] Dr. Silva Burnett EGFR-AF NICARAGUAN 47 mL/min/1.73m2 Critically low >=60 [facility] Comment on above: Performed By: #### B MP, BNP #### [facility] [address] [place] [address] Dr. Silva Burnett EGFR-NON AF NICARAGUAN 39 mL/min/1.73m2 Critically low >=60 [facility] Comment on above: Performed By: #### B MP, BNP #### [facility] [address] [place] [address] Dr. Silva Burnett CTA NECK WO W [...] AYANA FERNANDEZ Date: 2022-06-14 16:39 Normal [facility] BASIC METABOLIC PANELon 09-0 Calcium [Mass/Vol] 8.8 mg/dL Normal 8.6-10.3 [facility] Comment on above: Order Comment: No: D o not add to previous draw Performed By: #### 2 5508, 39002, 23917, 66505, 75220, 02606 #### [facility] [address] [facility] [place] [address], [facility] Chloride [Moles/Vol] 103 mmol/L Normal 98-107 [facility] Comment on above: Order Comment: No: D o not add to previous draw Performed By: #### 2 5508, 91082, 07662, 26037, 30503, 20904 #### [facility] [address] [place] [address], [place] CO2 [Moles/Vol] 28 mmol/L Normal 21-31 [facility] Comment on above: Order Comment: No: D o not add to previous draw Performed By: #### 2 5508, 72487, 62479, 58490, 22279, 82517 #### [facility] [address] [place] [address], [facility] Creatinine [Mass/Vol] 1.47 mg/dL High 0.70-1.30 [facility] Comment on above: Order Comment: No: D o not add to previous draw Performed By: #### 2 5508, 63888, 88824, 42570, 18641, 82037 #### [facility] [address] [place] [address], [facility] EGFR 48 ml/min/1.73sq m Abnormal >60 [facility] Comment on above: Order Comment: No: D o not add to previous draw Result Comment: [facility]'s estimated glomerular filtration rate (eGFR) will no [...] of individuals. Performed By: #### 2 5508, 66973, 70852, 72305, 65381, 81994 #### [facility] [address] [place] [address], [facility] Glucose [Mass/Vol] 110 mg/dL High 70-100 [facility] Comment on above: Order Comment: No: D o not add to previous draw Performed By: #### 2 5508, 95716, 43107, 70542, 99609, 47807 #### [facility] [address] [place] [address], [facility] Potassium [Moles/Vol] 4.3 mmol/L Normal 3.5-5.1 [facility] Comment on above: Order Comment: No: D o not add to previous draw Performed By: #### 2 5508, 13797, 56236, 04612, 78227, 48796 #### [facility] [address] [place] [address], [facility] Sodium [Moles/Vol] 136 mmol/L Normal 136-145 [facility] Comment on above: Order Comment: No: D o not add to previous draw Performed By: #### 2 5508, 82982, 87582, 30760, 08473, 39690 #### [facility] [address] [place] [address], [facility] Urea nitrogen [Mass/Vol] 35 mg/dL High 7-25 [facility] Comment on above: Order Comment: No: D o not add to previous draw Performed By: #### 2 5508, 34448, 58130, 22887, 04590, 35277 #### [facility] [address] [place] [address], [facility] MAGNESIUM BLOODon 05-23-2022 Magnesium [Mass/Vol] 2.2 mg/dL Normal 1.9-2.7 [facility] Comment on above: Order Comment: No: D o not add to previous draw Performed By: #### 2 5508, 03412, 79319, 69799, 95654, 70809 #### [facility] [address] [place] [address], [facility] APTTon 05-22-2022 aPTT Coag (Bld) [Time] 28.0 s Normal 25.0-35.0 [facility] Comment on above: Order Comment: [...] THIS PURPOSE. Performed By: #### 2 5508, 01883, 88776, 44550, 37725, 20400 #### [facility] [address] [place] [address], [facility] BASIC METABOLIC PANELon 09-0 -2021 Calcium [Mass/Vol] 9.0 mg/dL Normal 8.6-10.3 [facility] Comment on above: Order Comment: No: D o not add to previous draw Performed By: #### 2 5508, 74094, 99078, 98551, 13559, 34008 #### [facility] [address] [place] [address], [facility] Chloride [Moles/Vol] 101 mmol/L Normal 98-107 [facility] Comment on above: Order Comment: No: D o not add to previous draw Performed By: #### 2 5508, 70649, 33430, 46484, 80517, 18095 #### [facility] [address] [place] [address], [place] CO2 [Moles/Vol] 29 mmol/L Normal 21-31 [facility] Comment on above: Order Comment: No: D o not add to previous draw Performed By: #### 2 5508, 27447, 96240, 60798, 71832, 98492 #### [facility] [address] [place] [address], [facility] Creatinine [Mass/Vol] 1.67 mg/dL High 0.70-1.30 [facility] Comment on above: Order Comment: No: D o not add to previous draw Performed By: #### 2 5508, 37304, 25133, 38158, 59122, 05133 #### [facility] [address] [place] [address], [place] EGFR 41 ml/min/1.73sq m Abnormal >60 [facility] Comment on above: Order Comment: No: D o not add to previous draw Result Comment: [facility]'s estimated glomerular filtration rate (eGFR) will no [...] of individuals. Performed By: #### 2 5508, 86459, 88566, 37734, 99871, 30965 #### [facility] [address] [place] [address], [place] Glucose [Mass/Vol] 94 mg/dL Normal 70-100 [facility] Comment on above: Order Comment: No: D o not add to previous draw Performed By: #### 2 5508, 75484, 15719, 18385, 31885, 36300 #### [facility] [address] [place] [address], [place] Potassium [Moles/Vol] 4.8 mmol/L Normal 3.5-5.1 [facility] Comment on above: Order Comment: No: D o not add to previous draw Performed By: #### 2 5508, 78206, 03851, 14250, 39636, 88538 #### [facility] [address] [place] [address], [place] Sodium [Moles/Vol] 136 mmol/L Normal 136-145 [facility] Comment on above: Order Comment: No: D o not add to previous draw Performed By: #### 2 5508, 80258, 21824, 51434, 10173, 24065 #### [facility] [address] [place] [address], [place] Urea nitrogen [Mass/Vol] 39 mg/dL High 7-25 [facility] Comment on above: Order Comment: No: D o not add to previous draw Performed By: #### 2 5508, 68374, 73057, 27980, 98468, 58657 #### [facility] [address] [place] [address], [place] MAGNESIUM BLOODon 05-22-2022 Magnesium [Mass/Vol] 1.8 mg/dL Low 1.9-2.7 [facility] Comment on above: Order Comment: No: D o not add to previous draw Performed By: #### 2 5508, 12465, 11416, 78748, 50488, 73686 #### [facility] [address] [place] [address], [facility] APTTon 05-21-2022 aPTT Coag (Bld) [Time] 30.8 s Normal 25.0-35.0 [facility] Comment on above: Order Comment: [...] THIS PURPOSE. Performed By: #### 2 5508, 32307, 29469, 30805, 53447, 65222 #### [facility] [address] BASIC METABOLIC PANELon Calcium [Mass/Vol] 8.8 mg/dL Normal 8.6-10.3 [facility] Comment on above: Order Comment: No: D o not add to previous draw Performed By: #### 2 5508, 04516, 30590, 53405, 74477, 48556 #### [facility] [address] [place] [address], [facility] Chloride [Moles/Vol] 103 mmol/L Normal 98-107 [facility] Comment on above: Order Comment: No: D o not add to previous draw Performed By: #### 2 5508, 91822, 34504, 05870, 26430, 36546 #### [facility] [address] [place] [address], [facility] CO2 [Moles/Vol] 26 mmol/L Normal 21-31 [facility] Comment on above: Order Comment: No: D o not add to previous draw Performed By: #### 2 5508, 90781, 67482, 59684, 22401, 34871 #### [facility] [address] [place] [address], [place] Creatinine [Mass/Vol] 1.47 mg/dL High 0.70-1.30 [facility] Comment on above: Order Comment: No: D o not add to previous draw Performed By: #### 2 5508, 01075, 50372, 19755, 90617, 92975 #### [facility] [address] [place] [address], [facility] EGFR 48 ml/min/1.73sq m Abnormal >60 [facility] Comment on above: Order Comment: No: D o not add to previous draw Result Comment: [facility]'s estimated glomerular filtration rate (eGFR) will no [...] of individuals. Performed By: #### 2 5508, 13502, 81888, 78706, 73960, 48971 #### [facility] [address] [place] [address], [place] Glucose [Mass/Vol] 88 mg/dL Normal 70-100 [facility] Comment on above: Order Comment: No: D o not add to previous draw Performed By: #### 2 5508, 12214, 21898, 30874, 55670, 35470 #### [facility] [address] [place] [address], [place] Potassium [Moles/Vol] 3.9 mmol/L Normal 3.5-5.1 [facility] Comment on above: Order Comment: No: D o not add to previous draw Performed By: #### 2 5508, 54992, 97177, 29790, 01406, 63403 #### [facility] [address] [place] [address], [place] Sodium [Moles/Vol] 137 mmol/L Normal 136-145 [facility] Comment on above: Order Comment: No: D o not add to previous draw Performed By: #### 2 5508, 32655, 97024, 32645, 15243, 82077 #### [facility] [address] [place] [address], [facility] Urea nitrogen [Mass/Vol] 45 mg/dL High 7-25 [facility] Comment on above: Order Comment: No: D o not add to previous draw Performed By: #### 2 5508, 26350, 98181, 58728, 76028, 07261 #### [facility] [address] [place] [address], [facility] CBC COMPLETE BLOOD COUNTon 05-21-2022 Erythrocyte distribution width (RBC) [Ratio] 14.4 % Normal 11.5-15.0 [facility] Comment on above: Order Comment: No: D o not add to previous draw Performed By: #### 2 5508, 53281, 68789, 38054, 38611, 10512 #### [facility] [address] [place] [address], [place] Hematocrit (Bld) [Volume fraction] 40.8 % Normal 39.0-50.0 [facility] Comment on above: Order Comment: No: D o not add to previous draw Performed By: #### 2 5508, 42969, 32895, 98518, 07740, 37780 #### [facility] [address] [place] [address], [place] Hemoglobin (Bld) [Mass/Vol] 13.3 g/dL Normal 13.0-17.0 [facility] Comment on above: Order Comment: No: D o not add to previous draw Performed By: #### 2 5508, 62772, 21636, 89972, 21175, 47603 #### [facility] [address] [place] [address], [facility] MCH (RBC) [Entitic mass] 28.4 pg Normal 27.0-33.0 [facility] Comment on above: Order Comment: No: D o not add to previous draw Performed By: #### 2 5508, 21978, 99446, 68582, 53770, 67587 #### [facility] [address] [place] [address], [facility] MCHC (RBC) [Mass/Vol] 32.6 g/dL Normal 32.0-35.0 [facility] Comment on above: Order Comment: No: D o not add to previous draw Performed By: #### 2 5508, 94625, 16985, 02157, 05682, 83465 #### [facility] [address] [place] [address], [facility] MCV (RBC) [Entitic vol] 87.0 fL Normal 82.0-98.0 [facility] Comment on above: Order Comment: No: D o not add to previous draw Performed By: #### 2 5508, 15999, 71112, 08326, 80389, 68571 #### [facility] [address] [place] [address], [facility] Nucleated RBC/100 WBC (Bld) [Ratio] 0 % Normal 0-0 [facility] Comment on above: Order Comment: No: D o not add to previous draw Performed By: #### 2 5508, 75906, 36201, 17370, 85302, 08780 #### [facility] [address] [place] [address], [facility] PLAT CNT 157 10*3/uL Normal 150-400 [facility] Comment on above: Order Comment: No: D o not add to previous draw Performed By: #### 2 5508, 82658, 47453, 73111, 03426, 63457 #### [facility] [address] [place] [address], [facility] RBC (Bld) [#/Vol] 4.69 10*6/uL Normal 4.20-5.70 [facility] Comment on above: Order Comment: No: D o not add to previous draw Performed By: #### 2 5508, 03735, 14702, 95678, 87122, 57975 #### [facility] [address] [place] [address], [facility] WBC (Bld) [#/Vol] 6.19 10*3/uL Normal 4.00-10.60 [facility] Comment on above: Order Comment: No: D o not add to previous draw Performed By: #### 2 5508, 56014, 57075, 75957, 05603, 23363 #### [facility] [address] [place] [address], [facility] MAGNESIUM BLOODon 05-21-2022 Magnesium [Mass/Vol] 1.9 mg/dL Normal 1.9-2.7 [facility] Comment on above: Order Comment: No: D o not add to previous draw Performed By: #### 2 5508, 73638, 43617, 12152, 49235, 00260 #### [facility] [address] [place] [id number], [facility] APTTon 05-20-2022 aPTT Coag (Bld) [Time] 28.4 s Normal 25.0-35.0 [facility] Comment on above: Order Comment: [...] THIS PURPOSE. Performed By: #### 2 5508, 31056, 42628, 96900, 92476, 19147 #### [facility] [address] [place] [address], [facility] BASIC METABOLIC PANELon 09-0 4-2021 Calcium [Mass/Vol] 9.0 mg/dL Normal 8.6-10.3 [facility] Comment on above: Order Comment: No: D o not add to previous draw Performed By: #### 1 0070, 37971, 70533 #### [facility] [address] [place] [address], [facility] Chloride [Moles/Vol] 105 mmol/L Normal 98-107 [facility] Comment on above: Order Comment: No: D o not add to previous draw Performed By: #### 1 0070, 22339, 48332 #### [facility] [address] [place] [address], [facility] CO2 [Moles/Vol] 26 mmol/L Normal 21-31 [facility] Comment on above: Order Comment: No: D o not add to previous draw Performed By: #### 1 0070, 73597, 87386 #### [facility] [address] [place] [address], [facility] Creatinine [Mass/Vol] 1.42 mg/dL High 0.70-1.30 [facility] Comment on above: Order Comment: No: D o not add to previous draw Performed By: #### 1 0070, 79076, 19798 #### [facility] [address] [place] [address], [facility] EGFR 50 ml/min/1.73sq m Abnormal >60 [facility] Comment on above: Order Comment: No: D o not add to previous draw Result Comment: [facility]'s estimated glomerular filtration rate (eGFR) will no [...] of individuals. Performed By: #### 1 0070, 90530, 26476 #### [facility] [address] [place] [address], [facility] Glucose [Mass/Vol] 107 mg/dL High 70-100 [facility] Comment on above: Order Comment: No: D o not add to previous draw Performed By: #### 1 0070, 98362, 60969 #### [facility] [address] [place] [address], [facility] Potassium [Moles/Vol] 3.9 mmol/L Normal 3.5-5.1 [facility] Comment on above: Order Comment: No: D o not add to previous draw Performed By: #### 1 0070, 67548, 14358 #### [facility] [address] [place] [address], [facility] Sodium [Moles/Vol] 139 mmol/L Normal 136-145 [facility] Comment on above: Order Comment: No: D o not add to previous draw Performed By: #### 1 0070, 01873, 59056 #### [facility] [address] [place] [address], [facility] Urea nitrogen [Mass/Vol] 50 mg/dL High 7-25 [facility] Comment on above: Order Comment: No: D o not add to previous draw Performed By: #### 1 0070, 44027, 17627 #### [facility] [address] [place] [address], [place] CBC COMPLETE BLOOD COUNTon 0 05-20-2022 Erythrocyte distribution width (RBC) [Ratio] 14.3 % Normal 11.5-15.0 [facility] Comment on above: Order Comment: No: D o not add to previous draw Performed By: #### 2 5508, 90675, 34672, 61688, 61759, 57769 #### [facility] [address] [place] [id number], [facility] Hematocrit (Bld) [Volume fraction] 44.1 % Normal 39.0-50.0 [facility] Comment on above: Order Comment: No: D o not add to previous draw Performed By: #### 2 5508, 97273, 74739, 72104, 44654, 15796 #### [facility] [address] [place] [address], [facility] Hemoglobin (Bld) [Mass/Vol] 14.5 g/dL Normal 13.0-17.0 [facility] Comment on above: Order Comment: No: D o not add to previous draw Performed By: #### 2 5508, 53508, 87555, 28903, 07430, 37952 #### [facility] [address] [place] [address], [facility] IMM PLATELET FRAC 5.4 % Normal 0.8-6.3 [facility] Comment on above: Order Comment: No: D o not add to previous draw Performed By: #### 2 5508, 01619, 62003, 62755, 45363, 54273 #### [facility] [address] [place] [address], [facility] MCH (RBC) [Entitic mass] 29.1 pg Normal 27.0-33.0 [facility] Comment on above: Order Comment: No: D o not add to previous draw Performed By: #### 2 5508, 85437, 62694, 73344, 03157, 79495 #### [facility] [address] [place] [address], [place] MCHC (RBC) [Mass/Vol] 32.9 g/dL Normal 32.0-35.0 [facility] Comment on above: Order Comment: No: D o not add to previous draw Performed By: #### 2 5508, 84211, 63335, 90639, 91881, 80559 #### [facility] [address] [place] [address], [facility] MCV (RBC) [Entitic vol] 88.6 fL Normal 82.0-98.0 [facility] Comment on above: Order Comment: No: D o not add to previous draw Performed By: #### 2 5508, 13695, 62226, 58516, 70391, 86189 #### [facility] [address] [place] [address], [facility] Nucleated RBC/100 WBC (Bld) [Ratio] 0 % Normal 0-0 [facility] Comment on above: Order Comment: No: D o not add to previous draw Performed By: #### 2 5508, 34705, 02525, 83901, 36317, 78356 #### [facility] [address] [place] [address], [facility] PLAT CNT 138 10*3/uL Low 150-400 [facility] Comment on above: Order Comment: No: D o not add to previous draw Performed By: #### 2 5508, 27375, 59128, 56283, 18604, 03351 #### [facility] [address] [place] [address], [facility] RBC (Bld) [#/Vol] 4.98 10*6/uL Normal 4.20-5.70 [facility] Comment on above: Order Comment: No: D o not add to previous draw Performed By: #### 2 5508, 04627, 06298, 43877, 47509, 67332 #### [facility] [address] [place] [address], [facility] WBC (Bld) [#/Vol] 5.80 10*3/uL Normal 4.00-10.60 [facility] Comment on above: Order Comment: No: D o not add to previous draw Performed By: #### 2 5508, 78312, 83716, 43261, 71989, 80761 #### [facility] [address] [place] [address], [facility] MAGNESIUM BLOODon 05-20-2022 Magnesium [Mass/Vol] 2.0 mg/dL Normal 1.9-2.7 [facility] Comment on above: Order Comment: No: D o not add to previous draw Performed By: #### 1 0070, 88258, 25161 #### [facility] [address] [place] [address], [facility] PHOSPHORUS BLOODon Phosphate [Mass/Vol] 3.5 mg/dL Normal 2.5-5.0 [facility] Comment on above: Order Comment: No: D o not add to previous draw Performed By: #### 1 0070, 59929, 34164 #### [facility] [address] [place] [address], [facility] APTTon 05-19-2022 aPTT Coag (Bld) [Time] 30.3 s Normal 25.0-35.0 [facility] Comment on above: Order Comment: [...] THIS PURPOSE. Performed By: #### 2 5508, 47225, 14620, 02050, 45959, 05236 #### [facility] [address] [place] [address], [facility] BASIC METABOLIC PANELon Calcium [Mass/Vol] 8.5 mg/dL Low 8.6-10.3 [facility] Comment on above: Order Comment: No: D o not add to previous draw Performed By: #### 2 5508, 28128, 95900, 84512, 77378, 29548 #### [facility] [address] [place] [address], [facility] Chloride [Moles/Vol] 104 mmol/L Normal 98-107 [facility] Comment on above: Order Comment: No: D o not add to previous draw Performed By: #### 2 5508, 42777, 83791, 17586, 45918, 27154 #### [facility] [address] [place] [address], [facility] CO2 [Moles/Vol] 24 mmol/L Normal 21-31 [facility] Comment on above: Order Comment: No: D o not add to previous draw Performed By: #### 2 5508, 01865, 70121, 03916, 37060, 39961 #### [facility] [address] [place] [address], [facility] Creatinine [Mass/Vol] 2.02 mg/dL High 0.70-1.30 [facility] Comment on above: Order Comment: No: D o not add to previous draw Performed By: #### 2 5508, 89348, 12378, 50122, 90140, 88663 #### [facility] [address] [place] [address], [facility] EGFR 33 ml/min/1.73sq m Abnormal >60 [facility] Comment on above: Order Comment: No: D o not add to previous draw Result Comment: [facility]'s estimated glomerular filtration rate (eGFR) will no [...] of individuals. Performed By: #### 2 5508, 55176, 95325, 08907, 59576, 03999 #### [facility] [address] [place] [address], [facility] Glucose [Mass/Vol] 121 mg/dL High 70-100 [facility] Comment on above: Order Comment: No: D o not add to previous draw Performed By: #### 2 5508, 11944, 39932, 63106, 49425, 17002 #### [facility] [address] [place] [address], [facility] Potassium [Moles/Vol] 3.1 mmol/L Low 3.5-5.1 [facility] Comment on above: Order Comment: No: D o not add to previous draw Performed By: #### 2 5508, 29814, 57039, 50648, 61784, 67073 #### [facility] [address] [place] [address], [facility] Sodium [Moles/Vol] 137 mmol/L Normal 136-145 [facility] Comment on above: Order Comment: No: D o not add to previous draw Performed By: #### 2 5508, 61525, 31372, 46560, 23366, 40309 #### [facility] [address] [place] [address], [facility] Urea nitrogen [Mass/Vol] 61 mg/dL High 7-25 [facility] Comment on above: Order Comment: No: D o not add to previous draw Performed By: #### 2 5508, 88433, 64000, 27103, 53166, 71906 #### [facility] [address] [place] [address], [facility] CBC COMPLETE BLOOD COUNTon 0 05-19-2022 Erythrocyte distribution width (RBC) [Ratio] 14.2 % Normal 11.5-15.0 [facility] Comment on above: Order Comment: No: D o not add to previous draw Performed By: #### 2 5508, 59739, 05925, 27069, 84437, 79821 #### [facility] [address] [place] [address], [facility] Hematocrit (Bld) [Volume fraction] 41.1 % Normal 39.0-50.0 [facility] Comment on above: Order Comment: No: D o not add to previous draw Performed By: #### 2 5508, 81807, 29990, 52748, 80702, 06542 #### [facility] [address] [place] [address], [facility] Hemoglobin (Bld) [Mass/Vol] 13.8 g/dL Normal 13.0-17.0 [facility] Comment on above: Order Comment: No: D o not add to previous draw Performed By: #### 2 5508, 12994, 23962, 57401, 63865, 97995 #### [facility] [address] [place] [address], [facility] IMM PLATELET FRAC 4.8 % Normal 0.8-6.3 [facility] Comment on above: Order Comment: No: D o not add to previous draw Performed By: #### 2 5508, 24599, 52051, 13894, 35379, 54597 #### [facility] [address] [place] [address], [facility] MCH (RBC) [Entitic mass] 29.0 pg Normal 27.0-33.0 [facility] Comment on above: Order Comment: No: D o not add to previous draw Performed By: #### 2 5508, 02604, 52663, 35696, 93466, 35964 #### [facility] [address] [place] [id number], [facility] MCHC (RBC) [Mass/Vol] 33.6 g/dL Normal 32.0-35.0 [facility] Comment on above: Order Comment: No: D o not add to previous draw Performed By: #### 2 5508, 07487, 13135, 67046, 06271, 19732 #### [facility] [address] [place] [address], [facility] MCV (RBC) [Entitic vol] 86.3 fL Normal 82.0-98.0 [facility] Comment on above: Order Comment: No: D o not add to previous draw Performed By: #### 2 5508, 17210, 03676, 71841, 54303, 83000 #### [facility] [address] [place] [address], [facility] Nucleated RBC/100 WBC (Bld) [Ratio] 0 % Normal 0-0 [facility] Comment on above: Order Comment: No: D o not add to previous draw Performed By: #### 2 5508, 85676, 65051, 07253, 10789, 11357 #### [facility] [address] [place] [address], [facility] PLAT CNT 116 10*3/uL Low 150-400 [facility] Comment on above: Order Comment: No: D o not add to previous draw Performed By: #### 2 5508, 91554, 69487, 29641, 08590, 95233 #### [facility] [address] [place] [address], [facility] RBC (Bld) [#/Vol] 4.76 10*6/uL Normal 4.20-5.70 [facility] Comment on above: Order Comment: No: D o not add to previous draw Performed By: #### 2 5508, 37471, 73824, 57205, 41564, 10038 #### [facility] [address] [place] [id number], [facility] WBC (Bld) [#/Vol] 5.16 10*3/uL Normal 4.00-10.60 [facility] Comment on above: Order Comment: No: D o not add to previous draw Performed By: #### 2 5508, 41574, 82632, 40630, 77885, 85074 #### [facility] [address] [facility] [place], [place] [address] [place] [address] Cardiovascular Lab Reporton 05-19-2022 Cardiovascular Lab Report [facility] Patient Name: José Miguel Antonio [facility] Jonathan Juarez MR #: [id number] Department of Physician: Vic Nunes M.D. Division of Service Date: 05/18/2022 Cardiology Birthdate: 1940 Adult Cardiovascular Room #: 4AB 552120 [facility] [address] [facility]. [place], [place] [address] Cardiovascular Laboratory Report FINAL IMPRESSIONS: 1. 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 2. Two bypass grafts patent; left internal mammary artery graft to the left anterior descending and saphenous vein graft to the obtuse marginal. 3. Robust [id number] collaterals. 4. Patent left subclavian artery. RECOMMENDATIONS: [...] internal mammary artery graft, placement of a 6-Argentine MynxGrip closure device. METHODS: After risks, benefits, and alternatives were explained, written informed consent was obtained. The patient was prepped and draped in usual sterile fashion over both groins. Using 1% lidocaine solution, local infiltration anesthesia was achieved. Using a modified Seldinger technique and a micropuncture kit and on the ultrasound guidance access to the right common femoral artery was obtained. A 6-Argentine 11 cm sheath was inserted without difficulty. [...] conclude the procedure. All catheters removed. A 6-Argentine MynxGrip closure device was deployed per protocol [...] reduced ejection fraction. Electronically Signed by: Sonja Conley M.D. 05/24/2022 01:00 P Sonja Conley M.D. Date Dict: 05/18/2022/01:19 Cyndie/Sonja Conley M.D. Date Trans: 05/19/2022 05:44 A/radha [id number] cc: Samm Thompson M.D. [address] [facility] [address] [facility] MAGNESIUM BLOODon 05-19-2022 Magnesium [Mass/Vol] 2.0 mg/dL Normal 1.9-2.7 [facility] Comment on above: Order Comment: No: D o not add to previous draw Performed By: #### 1 0070, 93809 #### [facility] [address] [place] [address], [facility] APTTon 05-18-2022 aPTT Coag (Bld) [Time] 80.7 s Critically high 25.0-35.0 [facility] Comment on above: Order Comment: No: D o not add to previous draw Result Comment: Resu lt checked and called. Accurately read back by BRANDI STOREY RN ON 05/18/2022 AT 14:48 Performed By: #### 2 5508, 60747, 41924, 69714, 03756, 31135 #### [facility] [address] [place] [address], [facility] aPTT Coag (Bld) [Time] 135.2 s Critically high 25.0-35.0 [facility] Comment on above: Order Comment: No: D o not add to previous draw Result Comment: Resu lt checked and called. Accurately read back by Pepe Connolly rn at 0447 Performed By: #### 2 5508, 69262, 66395, 61380, 14380, 20796 #### [facility] [address] [place] [address], [facility] CBC COMPLETE BLOOD COUNTon 0 05-18-2022 Erythrocyte distribution width (RBC) [Ratio] 14.1 % Normal 11.5-15.0 [facility] Comment on above: Order Comment: No: D o not add to previous draw Performed By: #### 2 5508, 24189, 76899, 67283, 27566, 51842 #### [facility] [address] [place] [address], [facility] Hematocrit (Bld) [Volume fraction] 43.0 % Normal 39.0-50.0 [facility] Comment on above: Order Comment: No: D o not add to previous draw Performed By: #### 2 5508, 44583, 91805, 91030, 65953, 39649 #### [facility] [address] [place] [address], [facility] Hemoglobin (Bld) [Mass/Vol] 14.3 g/dL Normal 13.0-17.0 [facility] Comment on above: Order Comment: No: D o not add to previous draw Performed By: #### 2 5508, 66115, 74469, 46198, 78525, 63935 #### [facility] [address] [place] [address], [facility] MCH (RBC) [Entitic mass] 28.8 pg Normal 27.0-33.0 [facility] Comment on above: Order Comment: No: D o not add to previous draw Performed By: #### 2 5508, 36918, 46995, 03395, 09180, 25864 #### [facility] [address] [place] [address], [facility] MCHC (RBC) [Mass/Vol] 33.3 g/dL Normal 32.0-35.0 [facility] Comment on above: Order Comment: No: D o not add to previous draw Performed By: #### 2 5508, 98758, 23575, 88871, 52052, 03686 #### [facility] [address] [place] [address], [facility] MCV (RBC) [Entitic vol] 86.5 fL Normal 82.0-98.0 [facility] Comment on above: Order Comment: No: D o not add to previous draw Performed By: #### 2 5508, 22687, 84746, 63760, 45381, 15746 #### [facility] [address] [place] [address], [facility] Nucleated RBC/100 WBC (Bld) [Ratio] 0 % Normal 0-0 [facility] Comment on above: Order Comment: No: D o not add to previous draw Performed By: #### 2 5508, 24532, 01344, 28882, 49610, 30049 #### [facility] [address] [place] [address], [facility] PLAT CNT 105 10*3/uL Low 150-400 [facility] Comment on above: Order Comment: No: D o not add to previous draw Performed By: #### 2 5508, 99400, 34775, 32364, 53491, 90767 #### [facility] [address] [place] [address], [facility] RBC (Bld) [#/Vol] 4.97 10*6/uL Normal 4.20-5.70 [facility] Comment on above: Order Comment: No: D o not add to previous draw Performed By: #### 2 5508, 74131, 99703, 84256, 67478, 96898 #### [facility] [address] [place] [address], [facility] WBC (Bld) [#/Vol] 5.28 10*3/uL Normal 4.00-10.60 [facility] Comment on above: Order Comment: No: D o not add to previous draw Performed By: #### 2 5508, 12465, 50171, 78191, 57976, 52915 #### [facility] [address] [place] [address], [facility] POC GLUCOSE LABon 05-18-2022 Glucose [Mass/Vol] 92 mg/dL Normal 70-100 [facility] Comment on above: Performed By: #### 2 5508, 18140, 26308, 55553, 88299, 15944 #### [facility] [address] [place] [address], [place] Glucose [Mass/Vol] 90 mg/dL Normal 70-100 [facility] Comment on above: Performed By: #### 2 5508, 34447, 50808, 95154, 82371, 55373 #### [facility] [address] [place] [address], [facility] PROTHROMBIN TIMEon 2 INR Coag (PPP) [Relative time] 1.41 {INR} High 0.91-1.16 [facility] Comment on above: Order Comment: [...] CHEST 1995;108:[id number]. Performed By: #### 2 5508, 24558, 38094, 32379, 65955, 48122 #### [facility] [address] [place] [address], [facility] PT Coag (PPP) [Time] 17.2 s High 12.3-14.8 [facility] Comment on above: Order Comment: No: D o not add to previous draw Result Comment: ALL RESULTS MUST BE INTERPRETED WITH RESPECT TO BLOOD DRAWING ARTIFACT OR DILUTION ERROR OF ANTICOAGULANT AT THE TIME OF SAMPLING. Performed By: #### 2 5508, 78354, 23670, 24189, 40954, 35618 #### [facility] [address] [place] [address], [facility] UFH HEPARIN ASSAYon 05-18-20 UNFRACTIONATED HEPARIN >1.00 Critically high 0.30-0.70 [facility] Comment on above: Result Comment: Resu lt checked and called. Accurately read back by BRANDI STOREY RN ON 05/18/2022 AT 14:48 Rivaroxaban and Apixaban will interfere with the anti Xa assay used to monitor UFH and LMWH. Performed By: #### 2 5508, 04598, 63289, 14917, 15340, 91258 #### [facility] [address] UNFRACTIONATED HEPARIN >1.00 Critically high 0.30-0.70 [facility] Comment on above: Result Comment: Resu lt checked and called. Accurately read back by Pepe Connolly rn at 0447 Rivaroxaban and Apixaban will interfere with the anti Xa assay used to monitor UFH and LMWH. Performed By: #### 2 5508, 76759, 74413, 94151, 29645, 75002 #### [facility] [address] *BLOOD CULTUREon 05-17-2022 *BLOOD CULTURE Clinical Report: (D) Specimen: BLOOD CULTURE Collected: 05/17/2022 02:15 Status: Final Last Updated: 05/22/2022 07:50 CULT RES (Final) No Growth Day 5 Normal [facility] Comment on above: Performed By: #### 2 5508, 43037, 74616, 44899, 65322, 98538 #### [facility] [address] [place] [address], [facility] APTTon 05-17-2022 aPTT Coag (Bld) [Time] 147.6 s Critically high 25.0-35.0 [facility] Comment on above: Order Comment: No: D o not add to previous draw Result Comment: Resu lt checked and called. Accurately read back by brandi storey rn on 05/17/2022 at 18:38 Performed By: #### 2 5508, 78109, 84998, 34856, 14718, 79214 #### [facility] [address] [place] [address], [facility] aPTT Coag (Bld) [Time] 103.1 s Critically high 25.0-35.0 [facility] Comment on above: Order Comment: No: D o not add to previous draw Result Comment: Resu lt checked and called. Accurately read back by WILBURARACELI STOREY @ 1000 Performed By: #### 2 5508, 94159, 66670, 15736, 27851, 50521 #### [facility] [address] [place] [address], [facility] aPTT Coag (Bld) [Time] 47.9 s High 25.0-35.0 [facility] Comment on above: Order Comment: [...] THIS PURPOSE. Performed By: #### 2 5508, 77711, 80211, 66613, 02840, 40793 #### [facility] [address] [place] [address], [facility] BNP (B-TYPE NATRIURETIC PEPT TWIN)on 05-17-2022 Natriuretic peptide B (Bld) [Mass/Vol] 584 pg/mL High 0-100 [facility] Comment on above: Order Comment: No: D o not add to previous draw Result Comment: Give n the appropriate clinical setting a BNP result of >100 pg/mL indicates congestive heart failure. Performed By: #### 2 5508, 38113, 90986, 36144, 55594, 08510 #### [facility] [address] [place] [id number], [facility] CBC W/DIFFon 05-17-2022 ABS IMM GRANS 0.0 10*3/uL Normal 0.0-0.2 [facility] Comment on above: Order Comment: No: D o not add to previous draw Performed By: #### 2 5508, 55673, 32894, 40839, 48518, 42984 #### [facility] [address] [place] [address], [facility] ABS NEUTROPHILS 3.6 10*3/uL Normal 1.6-7.6 [facility] Comment on above: Order Comment: No: D o not add to previous draw Performed By: #### 2 5508, 68707, 09451, 51103, 38371, 87055 #### [facility] [address] [place] [address], [facility] Basophils (Bld) [#/Vol] 0.0 10*3/uL Normal 0.0-0.2 [facility] Comment on above: Order Comment: No: D o not add to previous draw Performed By: #### 2 5508, 22384, 16388, 09907, 47300, 92091 #### [facility] [address] [place] [address], [place] Basophils/100 WBC (Bld) 0.6 % Normal 0.0-1.0 [facility] Comment on above: Order Comment: No: D o not add to previous draw Performed By: #### 2 5508, 96229, 27488, 42064, 94454, 60581 #### [facility] [address] [place] [address], [place] Eosinophils (Bld) [#/Vol] 0.0 10*3/uL Normal 0.0-0.5 [facility] Comment on above: Order Comment: No: D o not add to previous draw Performed By: #### 2 5508, 10297, 58493, 48468, 16375, 42594 #### [facility] [address] [place] [address], [place] Eosinophils/100 WBC (Bld) 0.2 % Normal 0.0-6.0 [facility] Comment on above: Order Comment: No: D o not add to previous draw Performed By: #### 2 5508, 67491, 41489, 94787, 63686, 47155 #### [facility] [address] [place] [address], [facility] Erythrocyte distribution width (RBC) [Ratio] 13.9 % Normal 11.5-15.0 [facility] Comment on above: Order Comment: No: D o not add to previous draw Performed By: #### 2 5508, 17289, 39975, 54199, 77578, 76228 #### [facility] [address] [place] [address], [facility] Hematocrit (Bld) [Volume fraction] 40.6 % Normal 39.0-50.0 [facility] Comment on above: Order Comment: No: D o not add to previous draw Performed By: #### 2 5508, 83050, 80262, 78585, 90711, 25330 #### [facility] [address] [place] [address], [facility] Hemoglobin (Bld) [Mass/Vol] 13.7 g/dL Normal 13.0-17.0 [facility] Comment on above: Order Comment: No: D o not add to previous draw Performed By: #### 2 5508, 85144, 29308, 30446, 07621, 87834 #### [facility] [address] [place] [address], [facility] IMM PLATELET FRAC 6.9 % High 0.8-6.3 [facility] Comment on above: Order Comment: No: D o not add to previous draw Performed By: #### 2 5508, 14605, 90337, 39856, 02876, 02645 #### [facility] [address] [place] [address], [place] IMMATURE GRANS 0.8 % Normal 0.0-1.0 [facility] Comment on above: Order Comment: No: D o not add to previous draw Performed By: #### 2 5508, 18246, 46217, 46079, 78988, 91084 #### [facility] [address] [address], [facility] Lymphocytes (Bld) [#/Vol] 0.8 10*3/uL Low 1.2-4.0 [facility] Comment on above: Order Comment: No: D o not add to previous draw Performed By: #### 2 5508, 47987, 17738, 47530, 39522, 46602 #### [facility] [address] [facility] [place] [place] [address], [facility] Lymphocytes/100 WBC (Bld) 15.5 % Low 20.0-45.0 [facility] Comment on above: Order Comment: No: D o not add to previous draw Performed By: #### 2 5508, 90960, 50430, 52534, 33237, 84660 #### [facility] [address] [facility] [place] [address], [facility] MCH (RBC) [Entitic mass] 29.3 pg Normal 27.0-33.0 [facility] Comment on above: Order Comment: No: D o not add to previous draw Performed By: #### 2 5508, 65476, 88314, 11637, 07514, 41952 #### [facility] [address] [address], [facility] MCHC (RBC) [Mass/Vol] 33.7 g/dL Normal 32.0-35.0 [facility] Comment on above: Order Comment: No: D o not add to previous draw Performed By: #### 2 5508, 71889, 45246, 04854, 89330, 03952 #### [facility] [address] [place] [address], [facility] MCV (RBC) [Entitic vol] 86.9 fL Normal 82.0-98.0 [facility] Comment on above: Order Comment: No: D o not add to previous draw Performed By: #### 2 5508, 74485, 43600, 15809, 88598, 32306 #### [facility] [address] [place] [address], [facility] Monocytes (Bld) [#/Vol] 0.5 10*3/uL Normal 0.1-1.0 [facility] Comment on above: Order Comment: No: D o not add to previous draw Performed By: #### 2 5508, 56229, 61988, 39998, 44959, 02486 #### [facility] [address] [address], [facility] MONOS 9.7 % Normal 5.0-12.0 [facility] Comment on above: Order Comment: No: D o not add to previous draw Performed By: #### 2 5508, 51455, 64287, 85018, 30047, 73584 #### [facility] [address] [facility] [place] [place] [address], [facility] Neutrophils/100 WBC (Bld) 73.2 % High 40.0-72.0 [facility] Comment on above: Order Comment: No: D o not add to previous draw Performed By: #### 2 5508, 22618, 70428, 22571, 10996, 15057 #### [facility] [address] [facility] [place] [place] [address], [facility] Nucleated RBC/100 WBC (Bld) [Ratio] 0 % Normal 0-0 [facility] Comment on above: Order Comment: No: D o not add to previous draw Performed By: #### 2 5508, 96571, 77721, 05224, 30549, 69299 #### [facility] [address] [place] [address], [facility] PLAT CNT 81 10*3/uL Low 150-400 [facility] Comment on above: Order Comment: No: D o not add to previous draw Performed By: #### 2 5508, 88248, 57044, 37941, 17113, 77082 #### [facility] [address] [place] [address], [facility] RBC (Bld) [#/Vol] 4.67 10*6/uL Normal 4.20-5.70 [facility] Comment on above: Order Comment: No: D o not add to previous draw Performed By: #### 2 5508, 39763, 71932, 38269, 39828, 28690 #### [facility] [address] [place] [address], [facility] WBC (Bld) [#/Vol] 4.96 10*3/uL Normal 4.00-10.60 [facility] Comment on above: Order Comment: No: D o not add to previous draw Performed By: #### 2 5508, 38264, 97474, 26585, 88244, 93078 #### [facility] [address] [place] [address], [facility] COMP METABOLIC PANELon 05-17 Albumin [Mass/Vol] 3.0 g/dL Low 3.5-5.7 [facility] Comment on above: Order Comment: No: D o not add to previous draw Performed By: #### 2 5508, 16929, 54204, 85714, 64198, 52419 #### [facility] [address] [place] [address], [facility] ALKALINE PHOSPH 48 IU/L Normal 34-104 [facility] Comment on above: Order Comment: No: D o not add to previous draw Performed By: #### 2 5508, 00259, 78167, 78238, 83256, 12567 #### [facility] [address] [place] [address], [facility] ALT [Catalytic activity/Vol] 11 U/L Normal 7-52 [facility] Comment on above: Order Comment: No: D o not add to previous draw Performed By: #### 2 5508, 88525, 90648, 97060, 04789, 51858 #### [facility] [address] [place] [address], [place] AST [Catalytic activity/Vol] 19 U/L Normal 13-39 [facility] Comment on above: Order Comment: No: D o not add to previous draw Performed By: #### 2 5508, 46662, 30724, 43288, 49072, 55307 #### [facility] [address] [place] [address], [place] Bilirubin [Mass/Vol] 0.7 mg/dL Normal 0.3-1.0 [facility] Comment on above: Order Comment: No: D o not add to previous draw Performed By: #### 2 5508, 53936, 09234, 70750, 34520, 78213 #### [facility] [address] [place] [address], [place] Calcium [Mass/Vol] 8.5 mg/dL Low 8.6-10.3 [facility] Comment on above: Order Comment: No: D o not add to previous draw Performed By: #### 2 5508, 70798, 08711, 20600, 92634, 25020 #### [facility] [address] [place] [address], [place] Chloride [Moles/Vol] 104 mmol/L Normal 98-107 [facility] Comment on above: Order Comment: No: D o not add to previous draw Performed By: #### 2 5508, 15518, 88892, 37161, 97122, 72353 #### [facility] [address] [place] [address], [place] CO2 [Moles/Vol] 19 mmol/L Low 21-31 [facility] Comment on above: Order Comment: No: D o not add to previous draw Performed By: #### 2 5508, 44978, 70026, 55204, 83057, 79868 #### [facility] [address] [place] [address], [facility] Creatinine [Mass/Vol] 1.71 mg/dL High 0.70-1.30 [facility] Comment on above: Order Comment: No: D o not add to previous draw Performed By: #### 2 5508, 14541, 84961, 90410, 73558, 35251 #### [facility] [address] [place] [address], [facility] EGFR 40 ml/min/1.73sq m Abnormal >60 [facility] Comment on above: Order Comment: No: D o not add to previous draw Result Comment: [facility]'s estimated glomerular filtration rate (eGFR) will no [...] of individuals. Performed By: #### 2 5508, 42079, 64982, 12972, 11755, 05319 #### [facility] [address] [place] [address], [facility] Glucose [Mass/Vol] 96 mg/dL Normal 70-100 [facility] Comment on above: Order Comment: No: D o not add to previous draw Performed By: #### 2 5508, 58211, 09395, 80153, 12002, 74625 #### [facility] [address] [place] [address], [facility] Potassium [Moles/Vol] 3.8 mmol/L Normal 3.5-5.1 [facility] Comment on above: Order Comment: No: D o not add to previous draw Performed By: #### 2 5508, 82444, 85685, 39509, 39791, 18379 #### [facility] [address] [place] [address], [facility] Protein [Mass/Vol] 5.7 g/dL Low 6.0-8.3 [facility] Comment on above: Order Comment: No: D o not add to previous draw Performed By: #### 2 5508, 82335, 16958, 64827, 64339, 58529 #### [facility] [address] [place] [address], [facility] Sodium [Moles/Vol] 133 mmol/L Low 136-145 [facility] Comment on above: Order Comment: No: D o not add to previous draw Performed By: #### 2 5508, 02050, 82127, 02572, 51280, 34659 #### [facility] [address] [place] [address], [facility] Urea nitrogen [Mass/Vol] 57 mg/dL High 7-25 [facility] Comment on above: Order Comment: No: D o not add to previous draw Performed By: #### 2 5508, 68660, 74557, 64936, 40633, 59612 #### [facility] [address] CPKon 05-17-2022 CK [Catalytic activity/Vol] 44 U/L Normal 30-223 [facility] Comment on above: Order Comment: No: D o not add to previous draw Performed By: #### 2 5508, 14271, 83957, 45318, 65017, 88869 #### [facility] [address] [place] [id number], [facility] FREE T4on 05-17-2022 Free T4 [Mass/Vol] 0.78 ng/dL Normal 0.71-1.85 [facility] Comment on above: Performed By: #### 2 5508, 05104, 10841, 53877, 29874, 54612 #### [facility] [address] [place] [address], [facility] HEMOGLOBIN A1Con 05-17-2022 Glucose [Moles/Vol] 117 mmol/L Normal [facility] Comment on above: Order Comment: No: D o not add to previous draw Performed By: #### 2 5508, 77716, 36552, 08391, 84409, 83588 #### [facility] [address] [place] [address], [facility] HbA1c (Bld) [Mass fraction] 5.7 % Normal 4.0-6.0 [facility] Comment on above: Order Comment: No: D o not add to previous draw Performed By: #### 2 5508, 60718, 79791, 97710, 39304, 51590 #### [facility] [address] [place] [address], [facility] LACTATE BLOODon 05-17-2022 Lactate [Moles/Vol] 1.0 mmol/L Normal .5-2.2 [facility] Comment on above: Order Comment: No: D o not add to previous draw Performed By: #### 2 5508, 40065, 01475, 27422, 35941, 13478 #### [facility] [address] [place] [address], [facility] LIPID PROFILEon 05-17-2022 Cholesterol [Mass/Vol] 141 mg/dL Normal 120-200 [facility] Comment on above: Order Comment: No: D o not add to previous draw Result Comment: CHOL ESTEROL REFERENCE RANGE: 20 YEARS AND OLDER CARDIOVASCULAR RISK Less than 200 mg/dl Low Risk 200 to 239 mg/dl Borderline Risk 240 mg/dl and greater High Risk Performed By: #### 2 5508, 62767, 29892, 92427, 85989, 09950 #### [facility] [address] [place] [address], [facility] Cholesterol in HDL [Mass/Vol] 22 mg/dL Low 23-92 [facility] Comment on above: Order Comment: No: D o not add to previous draw Result Comment: Slig ht variation in normal range could be due to gender and/or age. HDL CHOLESTEROL REFERENCE RANGE: 20 years and older Cardiovascular Risk > or =60 mg/dL Desirable 40 TO 59 mg/dL Low Risk <40 mg/dL High Risk Performed By: #### 2 5508, 04077, 31090, 96563, 94481, 78887 #### [facility] [address] [place] [address], [place] Cholesterol in LDL [Mass/Vol] 95 mg/dL Normal 0-130 [facility] Comment on above: Order Comment: No: D o not add to previous draw Result Comment: LDL IS A CALCULATION LDL IS ONLY VALID IF THE TRIG IS LESS THAN 400. Performed By: #### 2 5508, 71640, 53996, 84674, 98066, 32296 #### [facility] [address] [place] [address], [facility] Cholesterol.total/C holesterol in HDL [Mass ratio] 6.4 {ratio} High .0-4.5 [facility] Comment on above: Order Comment: No: D o not add to previous draw Performed By: #### 2 5508, 16340, 83249, 92911, 05607, 17157 #### [facility] [address] [place] [address], [place] NON-HDL CHOLESTEROL 119 mg/dL Normal [facility] Comment on above: Order Comment: No: D o not add to previous draw Performed By: #### 2 5508, 00113, 48689, 33994, 58789, 58779 #### [facility] [address] [place] [address], [place] Triglyceride [Mass/Vol] 122 mg/dL Normal 40-149 [facility] Comment on above: Order Comment: No: D o not add to previous draw Result Comment: TRIG LYCERIDE REFERENCE RANGE: 20 YEARS AND OLDER CARDIOVASCULAR RISK LESS THAN 150 mg/dl LOW RISK 150 TO 199 mg/dl BORDERLINE RISK 200 mg/dl AND GREATER HIGH RISK Performed By: #### 2 8398, 69800, 77562, 45113, 11766, 03477 #### [facility] [address] [facility] [place] [address], [facility] VLDL CHOL 24 mg/dL Normal 0-40 [facility] Comment on above: Order Comment: No: D o not add to previous draw Performed By: #### 2 5508, 50178, 83536, 54848, 90107, 18971 #### [facility] [address] [place], [place] [address] POC GLUCOSE LABon 05-17-2022 Glucose [Mass/Vol] 91 mg/dL Normal 70-100 [facility] Comment on above: Performed By: #### 2 5508, 17773, 71008, 85472, 67067, 53930 #### [facility] [address] [facility] [place] [address], [facility] PORTABLE CHEST 1 VIEWon PORTABLE CHEST 1 VIEW [facility] Department of Radiology [address] [place] [id number] Patient Name: JOSÉ MIGUEL ANTONIO : 1940 Sex: M Age: Race: White Pt. Location: [id number] Patient Status: I Ordered Date: 05/17/2022 2:00:00 [...] congestion. Suspect trace left pleural effusion. Approved by:Yaron Soriano05/17/2022 3:19 AM. I, Valdemar Coughlin,have reviewed the image(s) and agree with the findings in this report. Electronically signed: Valdemar Coughlin. Transcribed by: [email or web address], User Resident: YARON NORTH Electronically Signed by: VALDEMAR COUGHLIN @ 05/17/2022 03:59 AM I personally read this/these film(s) with this resident Normal [facility] Comment on above: Order Comment: No: D o not add to previous draw PROTHROMBIN TIMEon INR Coag (PPP) [Relative time] 2.07 {INR} High 0.91-1.16 [facility] Comment on above: Order Comment: [...] CHEST 1995;108:[id number]. Performed By: #### 2 5508, 47145, 89849, 13800, 27148, 99144 #### [facility] [address] [place] [address], [facility] PT Coag (PPP) [Time] 22.9 s High 12.3-14.8 [facility] Comment on above: Order Comment: No: D o not add to previous draw Result Comment: ALL RESULTS MUST BE INTERPRETED WITH RESPECT TO BLOOD DRAWING ARTIFACT OR DILUTION ERROR OF ANTICOAGULANT AT THE TIME OF SAMPLING. Performed By: #### 2 5508, 90355, 94561, 72778, 84625, 94091 #### [facility] [address] [place] [address], [facility] TROPONIN-Ion 05-17-2022 Troponin I.cardiac [Mass/Vol] 0.25 ng/mL Critically high 0.00-0.04 [facility] Comment on above: Order Comment: No: D o not add to previous draw Result Comment: M-AR EVIOUS CRITICAL RESULT REFERENCE RANGES: 0.00 - 0.04 ng/ml NORMAL 0.05 - 0.50 ng/ml INDETERMINATE > 0.50 ng/ml CONSISTENT WITH AN M.I. Performed By: #### 2 5508, 20529, 96087, 12799, 43647, 70974 #### [facility] [address] [place] [address], [facility] Troponin I.cardiac [Mass/Vol] 0.31 ng/mL Critically high 0.00-0.04 [facility] Comment on above: Order Comment: No: D o not add to previous draw Result Comment: M-TR OPONIN INITIAL CRITICAL HIGH; RESPUN AND RETESTED M-CRITICAL RESULT(S) REVIEWED, CALLED TO AND READ BACK BY DARIAN CLEMENTS AT 0345 REFERENCE RANGES: 0.00 - 0.04 ng/ml NORMAL 0.05 - 0.50 ng/ml INDETERMINATE > 0.50 ng/ml CONSISTENT WITH AN M.I. Performed By: #### 2 5508, 23382, 55716, 03724, 83231, 30647 #### [facility] [address] TSH3 WITH REFLEX FT4on 05-17 TSH 3RD GENERATION 0.19 uIU/mL Low 0.34-5.60 [facility] Comment on above: Order Comment: No: D o not add to previous draw Performed By: #### 2 5508, 10143, 30980, 90758, 12005, 23927 #### [facility] [address] UFH HEPARIN ASSAYon 05-17-20 22 UNFRACTIONATED HEPARIN >1.00 Critically high 0.30-0.70 [facility] Comment on above: Result Comment: Resu lt checked and called. Accurately read back by brandi storey rn on 05/17/2022 at 18:38 Rivaroxaban and Apixaban will interfere with the anti Xa assay used to monitor UFH and LMWH. Performed By: #### 2 5508, 56994, 57164, 92764, 04477, 27046 #### [facility] [address] [place] [address], [facility] UNFRACTIONATED HEPARIN >1.00 Critically high 0.30-0.70 [facility] Comment on above: Result Comment: Resu lt checked and called. Accurately read back by BRANDI STOREY @ 1000 Rivaroxaban and Apixaban will interfere with the anti Xa assay used to monitor UFH and LMWH. Performed By: #### 2 5508, 79234, 34793, 26226, 38934, 64039 #### [facility] [address] [place] [address], [facility] UNFRACTIONATED HEPARIN >1.00 Critically high 0.30-0.70 [facility] Comment on above: Result Comment: Resu lt checked and called. Accurately read back by Darian Clements RN at 0251 PT on Elquis UFH = 2.79 for pharmacy use Rivaroxaban and Apixaban will interfere with the anti Xa assay used to monitor UFH and LMWH. Performed By: #### 2 5508, 57697, 59170, 54603, 05995, 39985 #### [facility] [address] [place] [address], [facility] URINALYSIS REFLEXon 05-17-20 22 Appearance (U) CLEAR Normal CLEAR [facility] Comment on above: Order Comment: No: D o not add to previous draw Performed By: #### 2 5508, 96568, 58552, 13221, 97262, 97242 #### [facility] [address] [place] [address], [place] Bilirubin Ql (U) Negative Normal NEGATIVE [facility] Comment on above: Order Comment: No: D o not add to previous draw Performed By: #### 2 5508, 82061, 89471, 52822, 07838, 72108 #### [facility] [address] [place] [address], [place] Color (U) YELLOW Normal YELLOW [facility] Comment on above: Order Comment: No: D o not add to previous draw Performed By: #### 2 5508, 69394, 73575, 32920, 49245, 29436 #### [facility] [address] [place] [address], [place] EPIS NONE SEEN Normal FEW,OCC,NON E SEEN [facility] Comment on above: Order Comment: No: D o not add to previous draw Performed By: #### 2 5508, 12285, 49646, 27591, 30418, 41370 #### [facility] [address] [place] [address], [place] Glucose Ql (U) Negative Normal NEGATIVE [facility] Comment on above: Order Comment: No: D o not add to previous draw Performed By: #### 2 5508, 53581, 81786, 85301, 12453, 52306 #### [facility] [address] [place] [address], [facility] Hemoglobin Ql (U) TRACE Abnormal NEGATIVE [facility] Comment on above: Order Comment: No: D o not add to previous draw Performed By: #### 2 5508, 90348, 00640, 54675, 19283, 20230 #### [facility] [address] [place] [address], [place] KETONE Negative Normal NEGATIVE [facility] Comment on above: Order Comment: No: D o not add to previous draw Performed By: #### 2 5508, 22853, 05773, 71434, 40856, 17351 #### [facility] [address] [place] [address], [place] LEUK MARQUITA Negative Normal NEGATIVE [facility] Comment on above: Order Comment: No: D o not add to previous draw Performed By: #### 2 5508, 02791, 46355, 99072, 34570, 54502 #### [facility] [address] [place] [address], [place] MUCUS THREADS OCC Abnormal NONE SEEN [facility] Comment on above: Order Comment: No: D o not add to previous draw Performed By: #### 2 5508, 32655, 71905, 75759, 26352, 43868 #### [facility] [address] [place] [address], [place] Nitrite Ql (U) Negative Normal NEGATIVE [facility] Comment on above: Order Comment: No: D o not add to previous draw Performed By: #### 2 5508, 56874, 97026, 67289, 84513, 81573 #### [facility] [address] [place] [address], [place] pH (U) 5.5 [pH] Normal 5.0-8.0 [facility] Comment on above: Order Comment: No: D o not add to previous draw Performed By: #### 2 5508, 01028, 62256, 59351, 36424, 75174 #### [facility] [address] Protein Ql (U) 30 Abnormal NEGATIVE [facility] Comment on above: Order Comment: No: D o not add to previous draw Performed By: #### 2 5508, 75925, 02975, 13274, 09812, 64946 #### [facility] [address] [facility]. [address] RBC 3-5 Abnormal NONE SEEN [facility] Comment on above: Order Comment: No: D o not add to previous draw Performed By: #### 2 5508, 82513, 73635, 23174, 29945, 20878 #### [facility] [address] [facility]. [address] SPEC GRAV 1.015 Normal 1.015-1.020 [facility] Comment on above: Order Comment: No: D o not add to previous draw Performed By: #### 2 5508, 36421, 42322, 43708, 95786, 05696 #### [facility] [address] [facility]. [address] WBC UA 0-2 Abnormal NONE SEEN [facility] Comment on above: Order Comment: No: D o not add to previous draw Performed By: #### 2 5508, 50842, 87455, 50163, 21330, 93464 #### [facility] [address] [facility]. [address] BNPon 05-16-2022 Natriuretic peptide B (Bld) [Mass/Vol] 38223.0 pg/mL Critically high <=1,800.0 [facility] Comment on above: Performed By: #### B MP, BNP #### [facility] [address] [place] [address] Dr. Silva Burnett CBC AUTO DIFFon 05-16-2022 BASO # 0.0 103/ul Normal 0.0-0.1 [facility] Comment on above: Performed By: #### V ITAD #### [facility] [address] [place] [address] Dr. Silva Burnett Basophils/100 WBC (Bld) 0.6 % Normal 0.2-2.0 [facility] Comment on above: Performed By: #### V ITAD #### [facility] [address] [place] [address] Dr. Silva Burnett EO # 0.0 103/ul Normal 0.0-0.7 [facility] Comment on above: Performed By: #### V ITAD #### [facility] [address] [place] [address] Dr. Silva Burnett Eosinophils/100 WBC (Bld) 0.1 % Critically low 0.9-7.0 [facility] Comment on above: Performed By: #### V ITAD #### [facility] [address] [place] [address] Dr. Silva Burnett Erythrocyte distribution width (RBC) [Ratio] 13.7 % Normal 11.0-15.0 [facility] Comment on above: Performed By: #### V ITAD #### [facility] [address] [place] [address] Dr. Silva Burnett Hematocrit (Bld) [Volume fraction] 45.5 % Normal 42.0-54.0 [facility] Comment on above: Performed By: #### V ITAD #### [facility] [address] [place] [address] Dr. Silva Burnett Hemoglobin (Bld) [Mass/Vol] 14.9 g/dL Normal 14.0-18.0 [facility] Comment on above: Performed By: #### V ITAD #### [facility] [address] [place] [address] Dr. Silva Burnett IG # 0.04 10e3/ul Critically high 0.00-0.03 [facility] Comment on above: Performed By: #### V ITAD #### [facility] [address] [place] [address] [address] Silva Burnett IG % 0.6 % Critically high 0.0-0.5 [facility] Comment on above: Performed By: #### V ITAD #### [facility] [address] [place] [address] [address] Silva Burnett LYMPH # 0.8 103/ul Critically low 1.2-3.8 [facility] Comment on above: Performed By: #### V ITAD #### [facility] [address] [place] [address] Dr. Silva Burnett Lymphocytes/100 WBC (Bld) 11.9 % Critically low 20.5-60.0 [facility] Comment on above: Performed By: #### V ITAD #### [facility] [address] [place] [address] Dr. Silva Burnett MANUAL DIFF REQ NO Normal [facility] Comment on above: Performed By: #### V ITAD #### [facility] [address] [place] [address] [address] Silva Burnett MCH (RBC) [Entitic mass] 29.0 pg Normal 25.9-34.0 [facility] Comment on above: Performed By: #### V ITAD #### [facility] [address] [place] [address] [address] Silva Burnett MCHC (RBC) [Mass/Vol] 32.7 g/dL Normal 29.9-35.2 [facility] Comment on above: Performed By: #### V ITAD #### [facility] [address] [place] [address] [address] Silva Burnett MCV (RBC) [Entitic vol] 88.7 fL Normal 80.0-94.0 [facility] Comment on above: Performed By: #### V ITAD #### [facility] [address] [place] [address] Dr. Silva Burentt MONO # 0.4 103/ul Normal 0.3-0.8 [facility] Comment on above: Performed By: #### V ITAD #### [facility] [address] [place] [address] [address] Silva Burnett Monocytes/100 WBC (Bld) 6.5 % Normal 1.7-12.0 [facility] Comment on above: Performed By: #### V ITAD #### [facility] [address] [place] [address] [address] Silva Burnett NEUT # 5.4 103/ul Normal 1.4-6.5 [facility] Comment on above: Performed By: #### V ITAD #### [facility] [address] [place] [address] [address] Silva Burnett Neutrophils/100 WBC (Bld) 80.3 % Critically high 43.0-75.0 [facility] Comment on above: Performed By: #### V ITAD #### [facility] [address] [place] [address] Dr. Silva Burnett Platelet mean volume (Bld) [Entitic vol] 11.5 fL Normal 9.5-13.5 [facility] Comment on above: Performed By: #### V ITAD #### [facility] [address] [place] [address] [address] Silva Burnett PLT 111 103/ul Critically low 150-450 [facility] Comment on above: Performed By: #### V ITAD #### [facility] [address] [place] [address] Dr. Silva Burnett RBC 5.13 106/ul Normal 4.70-6.10 [facility] Comment on above: Performed By: #### V ITAD #### [facility] [address] [place], [place] [id number] Dr. Silva Burnett WBC 6.7 103/ul Normal 4.0-11.0 [facility] Comment on above: Performed By: #### V ITAD #### [facility] [address] [place] [address] HEAD WO CONon [...] LINDA JUNIOR Date: 2022-05-16 17:37 Normal [facility] CULTURE URINEon 05-16-2022 CULTURE URINE Culture Observations : NO GROWTH. Normal [facility] Comment on above: Performed By: #### V ITAD #### [facility] [address] [place] [address] Dr. Silva Burnett Covid-19 PCR ([facility])on 04-18 SARS-CoV-2 (COVID-19) RNA BRANT+probe Ql (Unsp spec) Not detected Normal NOT DETECTED [facility] Comment on above: Result Comment: [...] for this test is supported by the [place] of Health and Human Service's declaration that [...] used). Performed By: #### C VDTBH #### [facility] [address] [place] [address] Dr. Silva Burnett ER URINE PROFILEon 2 Bilirubin Ql (U) Negative Normal NEGATIVE [facility] Comment on above: Performed By: #### B MP, BNP #### [facility] [address] [place] [address] Dr. Silva Burnett Clarity (U) CLEAR Normal CLEAR [facility] Comment on above: Performed By: #### B MP, BNP #### [facility] [address] [place] [address] Dr. Silva Burnett Color (U) DK. YELLOW Normal YELLOW [facility] Comment on above: Performed By: #### B MP, BNP #### [facility] [address] [place] [address] Dr. Silva Burnett ERUAHD A micrscopic examina tion will be performed if indicated. Normal [facility] Comment on above: Performed By: #### B MP, BNP #### [facility] [address] [place] [address] Dr. Silva Burnett Glucose Ql (U) Negative Normal NEGATIVE [facility] Comment on above: Performed By: #### B MP, BNP #### [facility] [address] [place] [address] Dr. Silva Burnett Hemoglobin Ql (U) TRACE-INTACT Abnormal NEGATIVE [facility] Comment on above: Performed By: #### B MP, BNP #### [facility] [address] [place] [address] Dr. Silva Burnett Ketones Ql (U) TRACE Abnormal NEGATIVE [facility] Comment on above: Performed By: #### B MP, BNP #### [facility] [address] [place] [address] Dr. Silva Burnett LEUKOCYTES Negative Normal NEGATIVE [facility] Comment on above: Performed By: #### B MP, BNP #### [facility] [address] [place] [address] Dr. Silva Burnett Nitrite Ql (U) Negative Normal NEGATIVE [facility] Comment on above: Performed By: #### B MP, BNP #### [facility] [address] [place] [address] Dr. Silva Burnett pH (U) 5.5 [pH] Normal 5-9 [facility] Comment on above: Performed By: #### B MP, BNP #### [facility] [address] [place] [address] Dr. Silva Burnett Protein (U) [Mass/Vol] 30 mg/dL Abnormal NEGATIVE/ TRACE [facility] Comment on above: Performed By: #### B MP, BNP #### [facility] [address] [place] [address] Dr. Silva Burnett SPEC GRAVITY 1.025 Normal 1.005-<=1.0 25 [facility] Comment on above: Performed By: #### B MP, BNP #### [facility] [address] [place] [address] Dr. Silva Burnett UR MICRO IND INDICATED Normal [facility] Comment on above: Performed By: #### B MP, BNP #### [facility] [address] [place] [address] Dr. Silva Burnett Urobilinogen Qn (U) 0.2 {Zaina'U}/dL Normal 0.2 - 1. 0 [facility] Comment on above: Performed By: #### B MP, BNP #### [facility] [address] [place] [address] Dr. Silva Burnett PROF 14(COMP METB)on 022 Albumin [Mass/Vol] 2.8 g/dL Critically low 3.4-5.0 [facility] Comment on above: Performed By: #### B MP, BNP #### [facility] [address] [place] [address] Dr. Silva Burnett Albumin/Globulin [Mass ratio] 0.7 {ratio} Normal [facility] Comment on above: Performed By: #### B MP, BNP #### [facility] [address] [address] [address] Silva Burnett ALP [Catalytic activity/Vol] 69 U/L Normal 46-116 [facility] Comment on above: Performed By: #### B MP, BNP #### [facility] [address] [place] [address] Dr. Silva Burnett ALT [Catalytic activity/Vol] 16 U/L Normal 16-63 [facility] Comment on above: Performed By: #### B MP, BNP #### [facility] [address] [place] [address] Dr. Silva Burnett Anion gap [Moles/Vol] 15.2 mmol/L Normal [facility] Comment on above: Performed By: #### B MP, BNP #### [facility] [address] [place] [address] Dr. Silva Burnett AST [Catalytic activity/Vol] 30 U/L Normal 15-37 [facility] Comment on above: Performed By: #### B MP, BNP #### [facility] [address] [place] [address] Dr. Silva Burnett Bilirubin [Mass/Vol] 0.9 mg/dL Normal 0.2-1.0 [facility] Comment on above: Performed By: #### B MP, BNP #### [facility] [address] [place] [address] Dr. Silva Burnett Calcium [Mass/Vol] 9.0 mg/dL Normal 8.5-10.1 [facility] Comment on above: Performed By: #### B MP, BNP #### [facility] [address] [place] [address] Dr. Silva Burnett Chloride [Moles/Vol] 98 mmol/L Normal 98-107 [facility] Comment on above: Performed By: #### B MP, BNP #### [facility] [address] [place] [address] Dr. Silva Burnett CO2 [Moles/Vol] 22.9 mmol/L Normal 21.0-32.0 [facility] Comment on above: Performed By: #### B MP, BNP #### [facility] [address] [address] [address] Silva Burnett Creatinine [Mass/Vol] 2.20 mg/dL Critically high 0.70-1.30 [facility] Comment on above: Performed By: #### B MP, BNP #### [facility] [address] [address] [address] Silva Burnett EGFR-AF NICARAGUAN 35 mL/min/1.73m2 Critically low >=60 [facility] Comment on above: Performed By: #### B MP, BNP #### [facility] [address] [address] [address] Silva Burnett EGFR-NON AF NICARAGUAN 29 mL/min/1.73m2 Critically low >=60 [facility] Comment on above: Performed By: #### B MP, BNP #### [facility] [address] [place] [address] Dr. Silva Burnett Globulin (S) [Mass/Vol] 4.0 g/dL Normal [facility] Comment on above: Performed By: #### B MP, BNP #### [facility] [address] [address] [address] Silva Burnett Glucose [Mass/Vol] 148 mg/dL Critically high 74-106 [facility] Comment on above: Performed By: #### B MP, BNP #### [facility] [address] [address] [address] Silva Burnett Potassium [Moles/Vol] 4.1 mmol/L Normal 3.5-5.1 [facility] Comment on above: Performed By: #### B MP, BNP #### [facility] [address] [address] [address] Silva Burnett Protein [Mass/Vol] 6.8 g/dL Normal 6.4-8.2 [facility] Comment on above: Performed By: #### B MP, BNP #### [facility] [address] [address] [address] Silva Burnett Sodium [Moles/Vol] 132 mmol/L Critically low 136-145 [facility] Comment on above: Performed By: #### B MP, BNP #### [facility] [address] [place] [address] Dr. Silva Burnett Urea nitrogen [Mass/Vol] 60.0 mg/dL Critically high 7.0-18.0 [facility] Comment on above: Performed By: #### B MP, BNP #### [facility] [address] [place] [address] Dr. Silva Burnett Urea nitrogen/Creatinine [Mass ratio] 27.3 mg/mg Normal [facility] Comment on above: Performed By: #### B MP, BNP #### [facility] [address] [place] [address] Dr. Silva Burnett PROTIMEon 05-16-2022 INR Coag (PPP) [Relative time] 1.43 {INR} Normal [facility] Comment on above: Performed By: #### V ITAD #### [facility] [address] [place] [address] Dr. Silva Burnett INR GUIDELINES SEE BELOW Normal [facility] Comment on above: Result Comment: EDMOND RED INR: 2.0 - 3.0 CONDITIONS NOT LISTED BELOW 2.5 - 3.5 FOR PROSTHETIC HEART VALVE REPLACEMENT 2.5 - 3.5 RECURRENT THROMBOSIS Performed By: #### V ITAD #### [facility] [address] [place] [address] Dr. Silva Burnett PT Coag (PPP) [Time] 15.1 s Critically high 9.0-11.6 [facility] Comment on above: Performed By: #### V ITAD #### [facility] [address] [place] [address] Dr. Silva Burnett PTTon 05-16-2022 aPTT Coag (Bld) [Time] 35.6 s Normal 22.3-36.2 [facility] Comment on above: Performed By: #### V ITAD #### [facility] [address] [place] [address] Dr. Silva Burnett TROPONIN, HIGH SENSITIVITYon 05-16-2022 HSTROP 895.9 pg/mL Critically high 4.0-76.1 [facility] Comment on above: Result Comment: CUT- OFF POINTS HAVE BEEN ESTABLISHED BASED ON THE FOURTH UNIVERSAL DEFINITIONS OF MYOCARDIAL INFARCTION. THE UPPER REFERENCE LIMIT (URL) OF TROPONIN, DEFINED THE 99TH PERCENTILE OF cTnI DISTRIBUTION IN A REFERENCE POPULATION, HAS BEEN CONFIRMED THE DECISION THRESHOLD FOR MT DIAGNOSIS. Performed By: #### B MP, BNP #### [facility] [address] [place] [address] Dr. Silva Burnett HSTROP 1000.5 pg/mL Critically high 4.0-76.1 [facility] Comment on above: Result Comment: CUT- OFF POINTS HAVE BEEN ESTABLISHED BASED ON THE FOURTH UNIVERSAL DEFINITIONS OF MYOCARDIAL INFARCTION. THE UPPER REFERENCE LIMIT (URL) OF TROPONIN, DEFINED THE 99TH PERCENTILE OF cTnI DISTRIBUTION IN A REFERENCE POPULATION, HAS BEEN CONFIRMED THE DECISION THRESHOLD FOR MT DIAGNOSIS. Performed By: #### B MP, BNP #### [facility] [address] [place] [address] Dr. Silva Burnett URINE MICROSCOPIC ONLYon BACTERIA TRACE Abnormal NONE SEEN [facility] Comment on above: Performed By: #### B MP, BNP #### [facility] [address] [place] [address] Dr. Silva Burnett Bacteria identified Cx Nom (U) INDICATED Normal [facility] Comment on above: Performed By: #### B MP, BNP #### [facility] [address] [place] [address] Dr. Silva Burnett CAST SEEN Abnormal NONE SEEN [facility] Comment on above: Performed By: #### B MP, BNP #### [facility] [address] [place] [address] Dr. Silva Burnett Crystals LM Nom (Urine sed) NONE SEEN Normal NONE SEEN [facility] Comment on above: Performed By: #### B MP, BNP #### [facility] [address] [place] [address] Dr. Silva Burnett Epithelial cells LM Ql (Urine sed) FEW Abnormal NONE SEEN /RARE [facility] Comment on above: Performed By: #### B MP, BNP #### [facility] [address] [place] [address] Dr. Silva Burnett HYALINE CAST FEW Normal [facility] Comment on above: Performed By: #### B MP, BNP #### [facility] [address] [address] [address] Silva Burnett MUCOUS SMALL Abnormal NONE SEEN [facility] Comment on above: Performed By: #### B MP, BNP #### [facility] [address] [address] [address] Silva Burnett RBC 0-2 Normal 0-2 [facility] Comment on above: Performed By: #### B MP, BNP #### [facility] [address] [address] [address] Silva Burnett WBC 5-10 Abnormal NONE SEEN [facility] Comment on above: Performed By: #### B MP, BNP #### [facility] [address] [address] [address] Silva Burnett XR CHEST 1 Von [...] AYANA FERNANDEZ Date: 2022-05-16 15:53 Normal [facility] BNPon 05-14-2022 NT PRO BNP >84964.0 Critically high <=1,800.0 [facility] Comment on above: Performed By: #### B MP, BNP #### [facility] [address] [address] [address] Silva Burnett CBC AUTO DIFFon 05-14-2022 BASO # 0.0 103/ul Normal 0.0-0.1 [facility] Comment on above: Performed By: #### B MP, BNP #### [facility] [address] [address] [address] Silva Burnett Basophils/100 WBC (Bld) 0.3 % Normal 0.2-2.0 [facility] Comment on above: Performed By: #### B MP, BNP #### [facility] [address] [place] [address] Dr. Silva Burnett EO # 0.0 103/ul Normal 0.0-0.7 [facility] Comment on above: Performed By: #### B MP, BNP #### [facility] [address] [place] [address] Dr. Silva Burnett Eosinophils/100 WBC (Bld) 0.0 % Critically low 0.9-7.0 [facility] Comment on above: Performed By: #### B MP, BNP #### [facility] [address] [place] [address] Dr. Silva Burnett Erythrocyte distribution width (RBC) [Ratio] 13.6 % Normal 11.0-15.0 [facility] Comment on above: Performed By: #### B MP, BNP #### [facility] [address] [place] [address] Dr. Silva Burnett Hematocrit (Bld) [Volume fraction] 41.8 % Critically low 42.0-54.0 [facility] Comment on above: Performed By: #### B MP, BNP #### [facility] [address] [place] [address] Dr. Silva Burnett Hemoglobin (Bld) [Mass/Vol] 13.6 g/dL Critically low 14.0-18.0 [facility] Comment on above: Performed By: #### B MP, BNP #### [facility] [address] [place] [address] Dr. Silva Burnett IG # 0.04 10e3/ul Critically high 0.00-0.03 [facility] Comment on above: Performed By: #### B MP, BNP #### [facility] [address] [place] [address] Dr. Silva Burnett IG % 0.5 % Normal 0.0-0.5 [facility] Comment on above: Performed By: #### B MP, BNP #### [facility] [address] [place] [address] Dr. Silva Burnett LYMPH # 0.5 103/ul Critically low 1.2-3.8 [facility] Comment on above: Performed By: #### B MP, BNP #### [facility] [address] [place] [address] Dr. Silva Burnett Lymphocytes/100 WBC (Bld) 7.1 % Critically low 20.5-60.0 [facility] Comment on above: Performed By: #### B MP, BNP #### [facility] [address] [place] [address] Dr. Silva Burnett MANUAL DIFF REQ NO Normal [facility] Comment on above: Performed By: #### B MP, BNP #### [facility] [address] [place] [address] Dr. Silva Burnett MCH (RBC) [Entitic mass] 29.4 pg Normal 25.9-34.0 [facility] Comment on above: Performed By: #### B MP, BNP #### [facility] [address] [place] [address] Dr. Silva Burnett MCHC (RBC) [Mass/Vol] 32.5 g/dL Normal 29.9-35.2 [facility] Comment on above: Performed By: #### B MP, BNP #### [facility] [address] [place] [address] Dr. Silva Burnett MCV (RBC) [Entitic vol] 90.3 fL Normal 80.0-94.0 [facility] Comment on above: Performed By: #### B MP, BNP #### [facility] [address] [place] [address] Dr. Silva Burnett MONO # 0.4 103/ul Normal 0.3-0.8 [facility] Comment on above: Performed By: #### B MP, BNP #### [facility] [address] [place] [address] Dr. Silva Burnett Monocytes/100 WBC (Bld) 5.4 % Normal 1.7-12.0 [facility] Comment on above: Performed By: #### B MP, BNP #### [facility] [address] [place] [address] Dr. Silva Burnett NEUT # 6.6 103/ul Critically high 1.4-6.5 [facility] Comment on above: Performed By: #### B MP, BNP #### [facility] [address] [place] [address] Dr. Silva Burnett Neutrophils/100 WBC (Bld) 86.7 % Critically high 43.0-75.0 [facility] Comment on above: Performed By: #### B MP, BNP #### [facility] [address] [place] [address] Dr. Silva Burnett Platelet mean volume (Bld) [Entitic vol] 10.4 fL Normal 9.5-13.5 [facility] Comment on above: Performed By: #### B MP, BNP #### [facility] [address] [place] [address] Dr. Silva Burnett PLT 110 103/ul Critically low 150-450 [facility] Comment on above: Performed By: #### B MP, BNP #### [facility] [address] [place] [address] Dr. Silva Burnett RBC 4.63 106/ul Critically low 4.70-6.10 [facility] Comment on above: Performed By: #### B MP, BNP #### [facility] [address] [place] [address] Dr. Silva Burnett WBC 7.6 103/ul Normal 4.0-11.0 [facility] Comment on above: Performed By: #### B MP, BNP #### [facility] [address] [place] [address] Dr. Silva Burnett CULTURE URINEon 05-14-2022 CULTURE URINE Culture Observations : NO GROWTH. Normal [facility] Comment on above: Performed By: #### V ITAD #### [facility] [address] [place] [address] Dr. Silva Burnett IRONon 05-14-2022 Iron [Mass/Vol] 18.0 ug/dL Critically low 65.0-175.0 [facility] Comment on above: Performed By: #### I CUBA #### [facility] [address] [address] [address] Silva Burnett PROF 14(COMP METB)on 022 Albumin [Mass/Vol] 3.4 g/dL Normal 3.4-5.0 [facility] Comment on above: Performed By: #### B MP, BNP #### [facility] [address] [place] [address] Dr. Silva Burnett Albumin/Globulin [Mass ratio] 0.8 {ratio} Normal [facility] Comment on above: Performed By: #### B MP, BNP #### [facility] [address] [place] [address] Dr. Silva Burnett ALP [Catalytic activity/Vol] 77 U/L Normal 46-116 [facility] Comment on above: Performed By: #### B MP, BNP #### [facility] [address] [place] [address] Dr. Silva Burnett ALT [Catalytic activity/Vol] 16 U/L Normal 16-63 [facility] Comment on above: Performed By: #### B MP, BNP #### [facility] [address] [place] [address] Dr. Silva Burnett Anion gap [Moles/Vol] 13.3 mmol/L Normal [facility] Comment on above: Performed By: #### B MP, BNP #### [facility] [address] [place] [address] Dr. Silva Burnett AST [Catalytic activity/Vol] 23 U/L Normal 15-37 [facility] Comment on above: Performed By: #### B MP, BNP #### [facility] [address] [place] [address] Dr. Silva Burnett Bilirubin [Mass/Vol] 0.9 mg/dL Normal 0.2-1.0 [facility] Comment on above: Performed By: #### B MP, BNP #### [facility] [address] [place] [address] Dr. Silva Burnett Calcium [Mass/Vol] 9.3 mg/dL Normal 8.5-10.1 [facility] Comment on above: Performed By: #### B MP, BNP #### [facility] [address] [address] [address] Silva Burnett Chloride [Moles/Vol] 98 mmol/L Normal 98-107 [facility] Comment on above: Performed By: #### B MP, BNP #### [facility] [address] [address] [address] Silva Burnett CO2 [Moles/Vol] 26.0 mmol/L Normal 21.0-32.0 [facility] Comment on above: Performed By: #### B MP, BNP #### [facility] [address] [place] [address] Dr. Silva Burnett Creatinine [Mass/Vol] 1.84 mg/dL Critically high 0.70-1.30 [facility] Comment on above: Performed By: #### B MP, BNP #### [facility] [address] [place] [address] Dr. Silva Burnett EGFR-AF NICARAGUAN 43 mL/min/1.73m2 Critically low >=60 [facility] Comment on above: Performed By: #### B MP, BNP #### [facility] [address] [place] [address] Dr. Silva Burnett EGFR-NON AF NICARAGUAN 36 mL/min/1.73m2 Critically low >=60 [facility] Comment on above: Performed By: #### B MP, BNP #### [facility] [address] [place] [address] Dr. Silva Burnett Globulin (S) [Mass/Vol] 4.1 g/dL Normal [facility] Comment on above: Performed By: #### B MP, BNP #### [facility] [address] [place] [address] Dr. Silva Burnett Glucose [Mass/Vol] 132 mg/dL Critically high 74-106 [facility] Comment on above: Performed By: #### B MP, BNP #### [facility] [address] [place] [address] Dr. Silva Burnett Potassium [Moles/Vol] 4.3 mmol/L Normal 3.5-5.1 [facility] Comment on above: Performed By: #### B MP, BNP #### [facility] [address] [address] [address] Silva Burnett Protein [Mass/Vol] 7.5 g/dL Normal 6.4-8.2 [facility] Comment on above: Performed By: #### B MP, BNP #### [facility] [address] [address] [address] Silva Burnett Sodium [Moles/Vol] 133 mmol/L Critically low 136-145 Th [facility] Comment on above: Performed By: #### B MP, BNP #### [facility] [address] [place] [address] Dr. Silva Burnett Urea nitrogen [Mass/Vol] 38.0 mg/dL Critically high 7.0-18.0 [facility] Comment on above: Performed By: #### B MP, BNP #### [facility] [address] [place] [address] Dr. Silva Burnett Urea nitrogen/Creatinine [Mass ratio] 20.7 mg/mg Normal [facility] Comment on above: Performed By: #### B MP, BNP #### [facility] [address] [place] [address] Dr. Silva Burnett UA RANDOM W/MICROSCOPICon BACTERIA NONE SEEN Normal NONE SEEN [facility] Comment on above: Performed By: #### U AMIC #### [facility] [address] [place] [address] Dr. Silva Burnett Bilirubin Ql (U) Negative Normal NEGATIVE [facility] Comment on above: Performed By: #### U AMIC #### [facility] [address] [place] [address] Dr. Silva Burnett CAST NONE SEEN Normal NONE SEEN [facility] Comment on above: Performed By: #### U AMIC #### [facility] [address] [place] [address] Dr. Silva Burnett Clarity (U) CLEAR Normal CLEAR [facility] Comment on above: Performed By: #### U AMIC #### [facility] [address] [place] [address] Dr. Silva Burnett Color (U) YELLOW Normal YELLOW [facility] Comment on above: Performed By: #### U AMIC #### [facility] [address] [address] [address] Silva Burnett Crystals LM Nom (Urine sed) NONE SEEN Normal NONE SEEN [facility] Comment on above: Performed By: #### U AMIC #### [facility] [address] [address] [address] Silva Burnett Epithelial cells LM Ql (Urine sed) NONE SEEN Normal NONE SEEN /RARE [facility] Comment on above: Performed By: #### U AMIC #### [facility] [address] [address] [address] Silva Burnett Glucose Ql (U) Negative Normal NEGATIVE [facility] Comment on above: Performed By: #### U AMIC #### [facility] [address] [address] [address] Silva Burnett Hemoglobin Ql (U) MODERATE Abnormal NEGATIVE [facility] Comment on above: Performed By: #### U AMIC #### [facility] [address] [address] [address] Silva Burnett Ketones Ql (U) Negative Normal NEGATIVE [facility] Comment on above: Performed By: #### U AMIC #### [facility] [address] [address] [address] Silva Burnett LEUKOCYTES Negative Normal NEGATIVE [facility] Comment on above: Performed By: #### U AMIC #### [facility] [address] [address] [address] Silva Burnett MUCOUS NONE SEEN Normal NONE SEEN [facility] Comment on above: Performed By: #### U AMIC #### [facility] [address] [address] [address] Silva Burnett Nitrite Ql (U) Negative Normal NEGATIVE [facility] Comment on above: Performed By: #### U AMIC #### [facility] [address] [address] [address] Silva Burnett pH (U) 6.0 [pH] Normal 5-9 [facility] Comment on above: Performed By: #### U AMIC #### [facility] [address] [address] [address] Silva Burnett RBC 0-2 Normal 0-2 [facility] Comment on above: Performed By: #### U AMIC #### [facility] [address] [address] [address] Silva Burnett SPEC GRAVITY 1.025 Normal 1.005-<=1.0 25 [facility] Comment on above: Performed By: #### U AMIC #### [facility] [address] [address] [address] Silva Burnett UA PROTEIN 30 mg/dl Abnormal NEGATIVE/ TRACE [facility] Comment on above: Performed By: #### U AMIC #### [facility] [address] [place] [address] Dr. Silva Burnett Urobilinogen Qn (U) 1.0 {Zaina'U}/dL Normal 0.2 - 1. 0 [facility] Comment on above: Performed By: #### U AMIC #### [facility] [address] [place] [address] Dr. Silva Burnett WBC NONE SEEN Normal NONE SEEN [facility] Comment on above: Performed By: #### U AMIC #### [facility] [address] [place] [address] Dr. Silva Burnett ICD REMOTE CHECKon 2 AV Delay Adaptive Paced Minimum (ms) 200 ms [facility] AV Delay Adaptive Sensed Minimum (ms) 170 ms [facility] Bj RA Pacing Amplitude (volts) 2 V [facility] Bj RA Pacing Polarity BI [facility] Bj RA Pacing Pulse Width (ms) 0.5 ms [facility] Bj RA Sensing Amplitude (mvolts) 0.25 mV [facility] Bj RA Sensing Polarity BI [facility] Bj RV Pacing Amplitude (volts) 2 V [facility] Bj RV Pacing Polarity BI [facility] Bj RV Pacing Pulse Width (ms) 0.5 ms [facility] Bj RV Sensing Amplitude (mvolts) 0.3 mV [facility] Bj RV Sensing Polarity [facility] Detection Configuration (Vent) 2 - Zone [facility] FastVT_Detection Interval 250 ms [facility] FastVT_Therapy Configuration 1 ATP(s) + 8 Shock(s) [facility] ICD FastVT DetectionStatus ENABLED [facility] ICD-AMS EPISODES 170 {beats}/min [facility] ICD-ATP Episodes (Vent) 0 [facility] ICD-ATRIALFIBRILLAT ION 21 [facility] ICD-ATRIALTACHYCARD IA 21 [facility] ICD-ATRIALTACHYCARD IA 6 [facility] ICD-Device Mfg BSX [facility] ICD-Fast Ventricular Tachycardia 6 [facility] ICD-LEADIMPEDANCEAT RIAL 709 ohm [facility] ICD-Percent Pacing (Atrial) 5 % [facility] ICD-Percent Pacing (Vent) 1 % [facility] ICD-Shocks Aborted (Vent) 0 [facility] ZOL-FXTHOD-PEOUMTZY D 0 [facility] ICD-SHOCKSABORTED 0 [facility] ICD-SHOCKSDELIVERED VENTRICULAR 0 [facility] ICD-Ventricular Fibrillation 0 [facility] Lead Impedance (RV) 416 ohm [facility] Lead Impedance High Voltage 47 ohm [facility] Lead1 Mfg BSX [facility] Lead2 Mfg BSX [facility] Location RV [facility] Location RA [facility] Lower Rate (bpm) 50 {beats}/min [facility] Max Sensor Rate (bpm) 130 {beats}/min [facility] MDT_PROG_TACHY_ZONE _DETECTIONS_STATUS ENABLED [facility] Model D142 INOGEN [facility] Model 0675 [place] 4-Front [facility] Model 7741 Ingevity MRI [facility] Pacing Mode DDDR [facility] Serial Number [id number] [facility] Serial Number [id number] [facility] Serial Number [id number] [facility] Test Charge Energy 23 J [facility] Test Charge Time 10.1 s [facility] Therapy Status (Vent) Enabled [facility] Thresh RA Capture Amplitude (volts) 0.6 V [facility] Thresh RA Capture Duration (ms) 0.5 ms [facility] Thresh RV Capture Amplitude (VOLTS) 0.4 V [facility] Thresh RV Capture Duration (MS) 0.5 ms [facility] Tracking Rate (bpm) 130 {beats}/min [facility] VF Zone Detection Interval 250 ms [facility] [facility] VF Zone Therapy Configuration 1 ATP(s) + 8 Shock(s) [facility] No Panel Informationon 05-08 BLANK _ [facility] ICD-ATRIALTACHYCARD IA 0 [facility] ICD-Fast Ventricular Tachycardia 0 [facility] Implant Date 03/24/2019 [facility] ICD REMOTE CHECKon 2 AV Delay Adaptive Paced Minimum (ms) 200 ms [facility] AV Delay Adaptive Sensed Minimum (ms) 170 ms [facility] Bj RA Pacing Amplitude (volts) 2 V [facility] Bj RA Pacing Polarity BI [facility] Bj RA Pacing Pulse Width (ms) 0.5 ms [facility] Bj RA Sensing Amplitude (mvolts) 0.25 mV [facility] Bj RA Sensing Polarity BI [facility] Bj RV Pacing Amplitude (volts) 2 V [facility] Bj RV Pacing Polarity BI [facility] Bj RV Pacing Pulse Width (ms) 0.5 ms [facility] Bj RV Sensing Amplitude (mvolts) 0.3 mV [facility] Bj RV Sensing Polarity BI [facility] Detection Configuration (Vent) 2 - Zone [facility] FastVT_Detection Interval 250 ms [facility] FastVT_Therapy Configuration 1 ATP(s) + 8 Shock(s) [facility] ICD FastVT DetectionStatus ENABLED [facility] ICD-AMS EPISODES 170 {beats}/min [facility] ICD-ATP Episodes (Vent) 0 [facility] ICD-ATRIALFIBRILLAT ION 19 [facility] ICD-ATRIALTACHYCARD IA 19 [facility] ICD-ATRIALTACHYCARD IA 4 [facility] ICD-Device Mfg BSX [facility] ICD-Fast Ventricular Tachycardia 4 [facility] ICD-LEADIMPEDANCEAT RIAL 734 ohm [facility] ICD-Percent Pacing (Atrial) 6 % [facility] ICD-Percent Pacing (Vent) 1 % [facility] ICD-Shocks Aborted (Vent) 0 [facility] MWH-NGJDVO-SMLSHHXV D 0 [facility] ICD-SHOCKSABORTED 0 [facility] ICD-SHOCKSDELIVERED VENTRICULAR 0 [facility] ICD-Ventricular Fibrillation 0 [facility] Lead Impedance (RV) 427 ohm [facility] Lead Impedance High Voltage 48 ohm [facility] Lead1 Mfg BSX [facility] Lead2 Mfg BSX [facility] Location RV [facility] Location RA [facility] Lower Rate (bpm) 50 {beats}/min [facility] Max Sensor Rate (bpm) 130 {beats}/min [facility] MDT_PROG_TACHY_ZONE _DETECTIONS_STATUS ENABLED [facility] Model D142 INOGEN [facility] Model 0675 [place] 4-Front [facility] Model 7741 Ingevity MRI [facility]acing Mode DDDR [facility] Serial Number [id number] [facility] Serial Number [id number] [facility] Serial Number [id number] [facility] Test Charge Energy 23 J [facility] Test Charge Time 10 s [facility] d [facility] Therapy Status (Vent) Enabled [facility] Thresh RA Capture Amplitude (volts) 0.6 V [facility] Thresh RA Capture Duration (ms) 0.5 ms [facility] Thresh RV Capture Amplitude (VOLTS) 0.4 V [facility] Thresh RV Capture Duration (MS) 0.5 ms [facility] Tracking Rate (bpm) 130 {beats}/min [facility] VF Zone Detection Interval 250 ms [facility] VF Zone Therapy Configuration 1 ATP(s) + 8 Shock(s) [facility] No Panel Informationon 02-06 BLANK _ [facility] ICD-ATRIALTACHYCARD IA 0 [facility] ICD-Fast Ventricular Tachycardia 0 [facility] Implant Date 03/24/[address] [facility] [address] Chest W contrast [place] IMPRESSION: 1. Multiple small bilateral pulmonary nodules [...] any questions regarding this interpretation, please call [phone]. If you are unable to reach us at the number above, please feel free to contact [facility] eRadiology at [phone]. DIVISION OF RADIOLOGY * * *Final Report* * * DATE OF EXAM: Sep 13 2021 3:08PM [facility] 0539 - CT CHEST W IVCON / PROCEDURE REASON: Lung nodules * * * * Physician Interpretation * * * * RESULT: EXAMINATION: CHEST CT WITH CONTRAST CLINICAL HISTORY: Lung nodules. History of prostate cancer (GG 2), staging chest CT. Technique: Spiral CT acquisition of the chest from the thoracic inlet to the upper abdomen following IV contrast. MQ: CTCW_6 Contrast: 50 mL Omnipaque [address] Radiation dose: Integrated Dose-length product (DLP) for this visit = 314 mGy*cm CT Dose Reduction Employed: Automated exposure control (AEC) Comparison: CT abdomen and pelvis 07/20/2021 RESULT: Limitations: None. 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 Lung parenchyma and airways: There is no airspace consolidation. The central tracheobronchial tree is patent. There are small scattered noncalcified pulmonary nodules measuring less than 0.5 cm, with accounting representative examples detailed as follows on series 3: -Right upper lobe, image 47, 63 -Right middle lobe, image 87 -Right lower lobe, image 115, 86 -Left upper lobe, image 49, 59 -Left lower lobe, image 111, 120, 124 Pleural space: No pleural effusion. No pleural thickening. Lower neck, lymph nodes, and mediastinum: The imaged thyroid gland is normal. No lymphadenopathy in the supraclavicular or axillary regions. There are scattered subcentimeter short axis mediastinal lymph nodes, which are nonspecific. An enlarged right hilar lymph node measures 1 x 3.1 cm (series 2, image 85). A borderline left hilar lymph node measures 0.9 x 1.3 cm (series 2, image 87). 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 The cardiac chambers are normal in size. Coronary artery atherosclerotic calcifications are noted, although the study is not optimized for coronary assessment. No pericardial effusion or thickening. Bones and soft tissues: No destructive bone lesion. Chest wall is unremarkable. Upper abdomen: No abnormality in the imaged upper abdomen. Microcomputer Technician (topogram) images: No additional findings. DIVISION OF RADIOLOGY Provider, [facility] - 09/13/2021 * * *Final Report* * * DATE OF EXAM: Sep 13 2021 3:08PM [facility] 0539 - CT CHEST W IVCON / PROCEDURE REASON: Lung nodules * * * * Physician Interpretation * * * * RESULT: EXAMINATION: CHEST CT WITH CONTRAST CLINICAL HISTORY: Lung nodules. History of prostate cancer (GG 2), staging chest CT. Technique: Spiral CT acquisition of the chest from the thoracic inlet to the upper abdomen following IV contrast. MQ: CTCW_6 Contrast: 50 mL Omnipaque [address] Radiation dose: Integrated Dose-length product (DLP) for this visit = 314 mGy*cm CT Dose Reduction Employed: Automated exposure control (AEC) Comparison: CT abdomen and pelvis 07/20/2021 RESULT: Limitations: None. 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 Lung parenchyma and airways: There is no airspace consolidation. The central tracheobronchial tree is patent. There are small scattered noncalcified pulmonary nodules measuring less than 0.5 cm, with accounting representative examples detailed as follows on series 3: -Right upper lobe, image 47, 63 -Right middle lobe, image 87 -Right lower lobe, image 115, 86 -Left upper lobe, image 49, 59 -Left lower lobe, image 111, 120, 124 Pleural space: No pleural effusion. No pleural thickening. Lower neck, lymph nodes, and mediastinum: The imaged thyroid gland is normal. No lymphadenopathy in the supraclavicular or axillary regions. There are scattered subcentimeter short axis mediastinal lymph nodes, which are nonspecific. An enlarged right hilar lymph node measures 1 x 3.1 cm (series 2, image 85). A borderline left hilar lymph node measures 0.9 x 1.3 cm (series 2, image 87). 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 The cardiac chambers are normal in size. Coronary artery atherosclerotic calcifications are noted, although the study is not optimized for coronary assessment. No pericardial effusion or thickening. Bones and soft tissues: No destructive bone lesion. Chest wall is unremarkable. Upper abdomen: No abnormality in the imaged upper abdomen. Microcomputer Technician (topogram) images: No additional findings. IMPRESSION IMPRESSION: 1. Multiple small bilateral pulmonary nodules [...] any questions regarding this interpretation, please call [phone]. If you are unable to reach us at the number above, please feel free to contact [facility] eRadiology at [phone]. [facility] Radiology Study observation (narrative) [facility] CT Chest W contrast IVOrdere d By: [facility] Provider on 09-13-2021 [facility] C [place] 12-23-2018 Wound Culture Microbiology PROCEDURE: Wound Culture [R1] SOURCE: Abscess BODY SITE: Anus COLLECTED DATE/TIME: 12/17/2018 16:12 EDT RECEIVED DATE/TIME: 12/18/2018 18:51 EDT START DATE/TIME: 12/18/2018 18:51 EDT FREE TEXT SOURCE: STEPHANIE YOUNG, Wilson BROWN MD, Wilson Mata FINAL REPORTS Final Report [] Verified Date/Time: [...] Locations R1: This test was performed at: [facility], [address] [place] [address], [id number] , [facility] Comment on above: Performed By: #### [id number] #### [facility] [address] [place] [address] Coding Summary.on 12-23-2018 Coding Summary. CODING DATE: 019 FINAL [facility] STATUS: Home (Routine DC) PAYOR: Medicare ADMIT [...] Tim CphT Date Saved: 12/23/2018 01:25 pm Normal [facility] Vital Signs Date Time Vital Sign Value Performing Clinician Facility 08-19-2024 13:26-0500 Body height 182.9 cm Carmela Fernandes MD Work Phone: [facility] 08-19-2024 13:26-0500 Body mass index (BMI) [Ratio] 23.06 kg/m2 Carmela Fernandes MD Work Phone: [facility] 08-19-2024 13:26-0500 Body weight 77.11 kg Carmela Fernandes MD Work Phone: [facility] 08-19-2024 13:26-0500 Diastolic blood pressure 56 mm[Hg] Carmela Fernandes MD Work Phone: [facility] 08-19-2024 13:26-0500 Heart rate 78 /min Carmela Fernandes MD Work Phone: [facility] 08-19-2024 13:26-0500 SaO2% (BldA) [Mass fraction] 97 % Carmela Fernandes MD Work Phone: [facility] Comment on above: 08-19-2024 13:26-0500 Systolic blood pressure 94 mm[Hg] Carmela Howell Work Phone: [facility] 08-19-2024 10:19-0500 Body height 182.9 cm Nj Wei MD Work Phone: [facility] 08-19-2024 10:19-0500 Body mass index (BMI) [Ratio] 23.06 kg/m2 Nj Wei MD Work Phone: [facility] 08-19-2024 10:19-0500 Body weight 77.11 kg Nj Wei MD Work Phone: [facility] 08-19-2024 10:19-0500 Diastolic blood pressure 56 mm[Hg] Nj gagnon MD Work Phone: [facility] 08-19-2024 10:19-0500 Heart rate 80 /min Nj Wei MD Work Phone: [facility] 08-19-2024 10:19-0500 Systolic blood pressure 108 mm[Hg] Nj Wei MD Work Phone: [facility] 03-31-2024 13:09-0400 Body mass index (BMI) [Ratio] 21.44 kg/m2 ARACELI Andrade MD Work Phone: [facility] 03-31-2024 13:09-0400 Body temperature 97.3 [degF] ARACELI Andrade MD Work Phone: [facility] 03-31-2024 13:09-0400 Body weight 79.9 kg ARACELI Andrade MD Work Phone: [facility] 03-31-2024 13:09-0400 Diastolic blood pressure 70 mm[Hg] ARACELI Andrade MD Work Phone: [facility] 03-31-2024 13:09-0400 Heart rate 67 /min ARACELI Andrade MD Work Phone: [facility] 03-31-2024 13:09-0400 Respiratory rate 16 /min ARACELI Andrade MD Work Phone: [facility] 03-31-2024 13:09-0400 SaO2% (BldA) [Mass fraction] 97 % ARACELI Andrade MD Work Phone: [facility] 03-31-2024 13:09-0400 Systolic blood pressure 115 mm[Hg] ARACELI Andrade MD Work Phone: [facility] 03-30-2024 14:56-0400 Body height 193 cm Efren Brady MD Work Phone: [facility] 03-30-2024 14:56-0400 Body mass index (BMI) [Ratio] 20.69 kg/m2 Efren Brady MD Work Phone: [facility] 03-30-2024 14:56-0400 Body weight 77.11 kg Efren Brady MD Work Phone: [facility] 03-30-2024 14:56-0400 Diastolic blood pressure 69 mm[Hg] Efren Brady MD Work Phone: [facility] 03-30-2024 14:56-0400 Heart rate 66 /min Efren Brady MD Work Phone: [facility] 03-30-2024 14:56-0400 Systolic blood pressure 125 mm[Hg] Efren Brady MD Work Phone: [facility] 03-04-2024 11:15-0400 SaO2% (BldA) [Mass fraction] 99 % SAMM THOMPSON [facility] Comment on above: Order Comment: Specimen Type: ARTERIAL B LOOD SPECIMENOrdering Facility: [facility] Address: [address] [place] [address] Performed By: #### A LLMG ####[facility] [id number] [place] [address] [place] 01-10-2024 10:58-0400 Diastolic blood pressure 78 mm[Hg] ARACELI Fernandes MD Work Phone: [facility] 01-10-2024 10:58-0400 Systolic blood pressure 122 mm[Hg] ARACELI Fernandes MD Work Phone: [facility] 01-10-2024 10:55-0400 Body height 182.9 cm ARACELI Fernandes MD Work Phone: [facility] 01-10-2024 10:55-0400 Body mass index (BMI) [Ratio] 22.51 kg/m2 ARACELI Fernandes MD Work Phone: [facility] 01-10-2024 10:55-0400 Body weight 75.3 kg ARACELI Fernandes MD Work Phone: [facility] 01-10-2024 10:55-0400 Heart rate 88 /min ARACELI Fernandes MD Work Phone: [facility] 01-10-2024 10:55-0400 Respiratory rate 14 /min ARACELI Fernandes MD Work Phone: [facility] 01-10-2024 10:55-0400 SaO2% (BldA) [Mass fraction] 97 % ARACELI Fernandes MD Work Phone: [facility] 12-26-2023 12:00-0400 Body height 182.9 cm Efren Brady MD Work Phone: [facility] 12-26-2023 12:00-0400 Body weight 77.11 kg Efren Brady MD Work Phone: [facility] 12-26-2023 12:00-0400 Diastolic blood pressure 64 mm[Hg] Efren Brady MD Work Phone: [facility] 12-26-2023 12:00-0400 Heart rate 78 /min Efren Brady MD Work Phone: [facility] 12-26-2023 12:00-0400 Respiratory rate 12 /min Efren Brady MD Work Phone: [facility] 12-26-2023 12:00-0400 SaO2% (BldA) [Mass fraction] 97 % Efren Brady MD Work Phone: [facility] 12-26-2023 12:00-0400 Systolic blood pressure 128 mm[Hg] Efren Brady MD Work Phone: [facility] 12-12-2023 13:38-0400 Body height 182.9 cm Carmelina Mayor TRANSITION NURSE.VEGETABLE BUNCHER Work Phone: [facility] 12-12-2023 13:38-0400 Body weight 75.3 kg Carmelina Mayor TRANSITION NURSE.VEGETABLE BUNCHER Work Phone: [facility] 12-12-2023 13:38-0400 Diastolic blood pressure 76 mm[Hg] Carmelina Mayor TRANSITION NURSE.VEGETABLE BUNCHER Work Phone: [facility] 12-12-2023 13:38-0400 Heart rate 81 /min Carmelina Mayor TRANSITION NURSE.VEGETABLE BUNCHER Work Phone: [facility] 12-12-2023 13:38-0400 Respiratory rate 18 /min Carmelina Mayoesperanza TRANSITION NURSE.VEGETABLE BUNCHER Work Phone: [facility] 12-12-2023 13:38-0400 SaO2% (BldA) [Mass fraction] 97 % Carmelina Yoderr TRANSITION NURSE.VEGETABLE BUNCHER Work Phone: [facility] 12-12-2023 13:38-0400 Systolic blood pressure 117 mm[Hg] Carmelina Yoderr TRANSITION NURSE.VEGETABLE BUNCHER Work Phone: [facility] 10-29-2023 11:24-0500 Body height 182.9 cm Virgil Carrillo MD Work Phone: [facility] 10-29-2023 11:24-0500 Body weight 80.29 kg Virgil Carrillo MD Work Phone: [facility] 10-29-2023 11:24-0500 Diastolic blood pressure 62 mm[Hg] Virgil Carrillo MD Work Phone: [facility] 10-29-2023 11:24-0500 Heart rate 72 /min Virgil Carrillo MD Work Phone: [facility] 10-29-2023 11:24-0500 Respiratory rate 12 /min Virgil Carrillo MD Work Phone: [facility] 10-29-2023 11:24-0500 SaO2% (BldA) [Mass fraction] 98 % Virgil Carrillo MD Work Phone: [facility] 10-29-2023 11:24-0500 Systolic blood pressure 108 mm[Hg] Virgil Carrillo MD Work Phone: [facility] 04-26-2023 15:08-0400 Body height 182.9 cm Zahra Pierre MD Work Phone: [facility] 04-26-2023 15:08-0400 Body weight 83.92 kg Zahra Pierre MD Work Phone: [facility] 04-26-2023 15:08-0400 Diastolic blood pressure 62 mm[Hg] Zahra Pierre MD Work Phone: [facility] 04-26-2023 15:08-0400 Heart rate 73 /min Zahra Pierre MD Work Phone: [facility] 04-26-2023 15:08-0400 Respiratory rate 12 /min Zahra Pierre MD Work Phone: [facility] 04-26-2023 15:08-0400 SaO2% (BldA) [Mass fraction] 98 % Zahra Pierre MD Work Phone: [facility] 04-26-2023 15:08-0400 Systolic blood pressure 116 mm[Hg] Zahra Pierre MD Work Phone: [facility] 10-25-2022 15:44-0500 Body height 182.9 cm Zahra Pierre MD Work Phone: [facility] 10-25-2022 15:44-0500 Body weight 83.92 kg Zahra Pierre MD Work Phone: [facility] 10-25-2022 15:44-0500 Diastolic blood pressure 66 mm[Hg] Zahra Pierre MD Work Phone: [facility] 10-25-2022 15:44-0500 Heart rate 74 /min Zahra Pierre MD Work Phone: [facility] 10-25-2022 15:44-0500 SaO2% (BldA) [Mass fraction] 98 % Zahra Pierre MD Work Phone: [facility] 10-25-2022 15:44-0500 Systolic blood pressure 116 mm[Hg] Zahra Pierre MD Work Phone: [facility] 10-02-2022 13:10-0500 Body temperature 96.69 [degF] ARACELI Andrade MD Work Phone: [facility] 10-02-2022 13:10-0500 Body weight 86.18 kg ARACELI Andrade MD Work Phone: [facility] 10-02-2022 13:10-0500 Diastolic blood pressure 71 mm[Hg] ARACELI Andrade MD Work Phone: [facility] 10-02-2022 13:10-0500 Heart rate 66 /min ARACELI Andrade MD Work Phone: [facility] 10-02-2022 13:10-0500 Respiratory rate 18 /min ARACELI Andrade MD Work Phone: [facility] 10-02-2022 13:10-0500 SaO2% (BldA) [Mass fraction] 98 % ARACELI Andrade MD Work Phone: [facility] 10-02-2022 13:10-0500 Systolic blood pressure 113 mm[Hg] ARACELI Andrade MD Work Phone: [facility] 09-03-2022 11:35-0500 Body height 182.9 cm John Jefferson MD Work Phone: [facility] 09-03-2022 11:35-0500 Body temperature 97.9 [degF] John Jefferson MD Work Phone: [facility] 09-03-2022 11:35-0500 Body weight 84.01 kg John Jefferson MD Work Phone: [facility] 09-03-2022 11:35-0500 Diastolic blood pressure 78 mm[Hg] John Jefferson MD Work Phone: [facility] 09-03-2022 11:35-0500 Heart rate 82 /min John Jefferson MD Work Phone: [facility] 09-03-2022 11:35-0500 Respiratory rate 18 /min John Jefferson MD Work Phone: [facility] 09-03-2022 11:35-0500 SaO2% (BldA) [Mass fraction] 98 % John Jefferson MD Work Phone: [facility] 09-03-2022 11:35-0500 Systolic blood pressure 133 mm[Hg] John Jefferson MD Work Phone: [facility] 06-06-2022 14:32-0400 Body height 182.9 cm Zahra Pierre MD Work Phone: [facility] 06-06-2022 14:32-0400 Body weight 76.66 kg Zahra Pierre MD Work Phone: [facility] 06-06-2022 14:32-0400 Diastolic blood pressure 63 mm[Hg] Zahra Pierre MD Work Phone: [facility] 06-06-2022 14:32-0400 Heart rate 71 /min Zahra Pierre MD Work Phone: [facility] 06-06-2022 14:32-0400 SaO2% (BldA) [Mass fraction] 97 % Zahra Pierre MD Work Phone: [facility] 06-06-2022 14:32-0400 Systolic blood pressure 101 mm[Hg] Zahra Pierre MD Work Phone: [facility] 12-11-2021 13:58-0400 Body temperature 97.11 [degF] ARACELI Andrade MD Work Phone: [facility] 12-11-2021 13:58-0400 Body weight 82.1 kg ARACELI Andrade MD Work Phone: [facility] 12-11-2021 13:58-0400 Diastolic blood pressure 78 mm[Hg] ARACELI Andrade MD Work Phone: [facility] 12-11-2021 13:58-0400 Heart rate 80 /min ARACELI Andrade MD Work Phone: [facility] 12-11-2021 13:58-0400 Respiratory rate 18 /min ARACELI Andrade MD Work Phone: [facility] 12-11-2021 13:58-0400 SaO2% (BldA) [Mass fraction] 99 % ARACELI Andrade MD Work Phone: [facility] 12-11-2021 13:58-0400 Systolic blood pressure 130 mm[Hg] ARACELI Andrade MD Work Phone: [facility] Encounters Encounter Date Encounter Type Care Provider Facility Start: 09-10-2024 End: 09-10-2024 ambulatory SAMM THOMPSON Facility:[facility] Start: 09-10-2024 End: 09-11-2024 Telephone encounter Carmela Fernandes MD Work Phone: Cardiology Comment on above: Advice Only Start: 09-07-2024 End: 09-07-2024 Telephone encounter Nj Wei MD Work Phone: Cardiology Comment on above: Patient Update Start: 09-03-2024 End: 09-03-2024 Telephone encounter Nj Wei MD Work Phone: Cardiology Start: 08-31-2024 End: 08-31-2024 ambulatory CARMELA FERNANDES Facility:[facility] Start: 08-28-2024 End: 08-28-2024 Telephone encounter Nj Wei MD Work Phone: Cardiology Start: 08-27-2024 End: 08-27-2024 Orders Only Carmela Fernandes MD Work Phone: Cardiology Comment on above: Heart failure, acute systolic (HCC) (Primary Dx); Acute on chronic systolic congestive heart failure (HCC); Carotid stenosis, 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, left Start: 08-21-2024 End: 08-28-2024 ambulatory Carmela Fernandes MD Work Phone: Cardiology Comment on above: Lab Results Start: 08-19-2024 End: 08-19-2024 Patient encounter procedure Nj Wei MD Work Phone: Cardiology Comment on above: Frequent PVCs (Prima ry Dx); Heart failure, acute systolic (HCC); Atherosclerotic heart disease of [place]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); Carotid stenosis, 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, left; Coronary artery disease involving coronary bypass graft of [place] heart without angina pectoris; Acute on chronic systolic congestive heart failure (HCC); S/P CABG (coronary artery bypass graft); Paroxysmal atrial fibrillation (HCC) Amaurosis fugax (Ami sandeep Dx); Heart failure, acute systolic (HCC); Acute on chronic systolic congestive heart failure (HCC); PVD (peripheral vascular disease) (HCC); S/P CABG (coronary artery bypass graft) Start: 08-19-2024 ambulatory [place] [facility] Facili ty:[facility] Start: 08-19-2024 End: 08-19-2024 Subsequent hospital visit by physician [facility] Work Phone: Cardiology Comment on above: Pacemaker reprogramm ing/check [Z45.018] Start: 08-19-2024 End: 08-19-2024 ambulatory [facility] Work Phone: Cardiology Comment on above: Holter Monitor Appli cation (12-lead 48-HR) Start: 08-18-2024 End: 08-18-2024 Orders Only Luís Skinner APRN.VEGETABLE BUNCHER Work Phone: Neurology [facility] Comment on above: Carotid stenosis, sy mptomatic w/o infarct, left (Primary Dx) Start: 08-17-2024 End: 08-17-2024 Telephone encounter Nj Wei MD Work Phone: Cardiology Comment on above: Patient Question Start: 08-14-2024 End: 08-19-2024 Telephone encounter Levar Moore MD Work Phone: Cardiology Comment on above: Opened In Error Advice Only; Med Man agement Start: 08-03-2024 End: 08-03-2024 Telephone encounter Rubén Bucio MD Work Phone: Cardiology Comment on above: Results Start: 07-30-2024 End: 07-30-2024 Telephone encounter Cullen Calvert RN NOC Comment on above: Follow Up Phone Call ([facility] post discharge follow-up - contacted - all clear /) Start: 07-27-2024 End: 07-27-2024 Orders Only Nj Wei MD Work Phone: Cardiology Comment on above: Frequent PVCs (Prima ry Dx) Start: 07-24-2024 End: 07-27-2024 Orders Only Yovanny Gentile MD Work Phone: [id number] Comment on above: PVC (premature ventr icular contraction) (Primary Dx) Holter Monitor Appli cation (48 Hours) Start: 07-23-2024 End: 07-23-2024 Evaluation and management of inpatient SAMM THOMPSON Facility:[facility] Start: 07-21-2024 End: 07-26-2024 Evaluation and management of inpatient LEVAR MOORE Facility:[facility] Start: 07-21-2024 End: 07-21-2024 ambulatory Carmela Fernandes MD Work Phone: Cardiology Comment on above: labs - urgent Start: 07-15-2024 ambulatory [facility] Start: 07-13-2024 [facility] Start: 07-09-2024 End: 07-09-2024 [facility] Start: 07-08-2024 End: 07-08-2024 Clinical Support [facility] Cardiac Rehab [facility] Start: 07-06-2024 End: 07-06-2024 [facility] Start: 07-02-2024 End: 07-02-2024 Clinical Support [facility] Cardiac Rehab [facility] Start: 07-01-2024 End: 07-01-2024 Clinical Support [facility] Cardiac Re[facility] Start: 06-29-2024 End: 06-29-2024 Clinical Support [facility] Cardiac Re[facility] Start: 06-25-2024 End: 06-25-2024 [facility] Start: 06-24-2024 End: 06-24-2024 Clinical Support [facility] Cardiac Rehab [facility] Comment on above: S/P AVR (aortic valv e replacement) Start: 06-23-2024 End: 06-23-2024 [facility] Start: 06-19-2024 End: 06-19-2024 Refill Carmela Fernandes MD Work Phone: Cardiology Comment on above: Rx Refills Start: 06-15-2024 End: 06-16-2024 Refill Carmela Fernandes MD Work Phone: Cardiology Comment on above: Rx Refills Start: 06-10-2024 End: 06-10-2024 Refill Sandrine Arteaga MD Work Phone: [place] [id number] Comment on above: Refill Request Start: 06-02-2024 End: 06-02-2024 Telephone encounter Crys SHEEHAN Hematology/Oncology Start: 06-01-2024 End: 06-01-2024 Telemedicine consultation with patient Carmela Fernandes MD Work Phone: Cardiology Start: 06-01-2024 End: 06-01-2024 ambulatory Carmela Fernandes MD Work Phone: Cardiology Comment on above: Chronic systolic hea rt failure (HCC) (Primary Dx); Non-rheumatic mitral regurgitation Start: 05-20-2024 End: 06-02-2024 Telephone encounter Carmela Fernandes MD Work Phone: Cardiology Comment on above: Follow Up Start: 05-14-2024 End: 05-17-2024 ambulatory [facility] Start: 05-13-2024 End: 05-17-2024 ambulatory [facility] Start: 05-11-2024 End: 05-17-2024 ambulatory [facility] Start: 05-09-2024 End: 05-16-2024 Evaluation and management of inpatient LUKE LAFFIN Facility:[facility] Start: 05-06-2024 End: 05-09-2024 Evaluation and management of inpatient FRANARTI LEES Facility:[facility] Start: 05-06-2024 End: 05-17-2024 ambulatory [facility] Start: 05-06-2024 End: 05-08-2024 Telephone encounter Paulina Fernandes MD Work Phone: Cardiology Comment on above: Follow Up Start: 05-06-2024 End: 05-17-2024 ambulatory [facility] Start: 05-04-2024 End: 05-17-2024 ambulatory [facility] Start: 04-30-2024 ambulatory Allyn Katz RN [facility] Start: 04-30-2024 Patient encounter procedure Allyn Katz RN [facility] Start: 04-29-2024 End: 05-17-2024 ambulatory Allyn Katz RN [facility] Start: 04-29-2024 Patient encounter procedure Allyn Katz RN [facility] Start: 04-27-2024 End: 04-27-2024 ambulatory [facility] Start: 04-23-2024 End: 05-17-2024 ambulatory [facility] Start: 04-22-2024 End: 05-17-2024 ambulatory [facility] Start: 04-20-2024 End: 04-20-2024 [facility] Start: 04-16-2024 End: 04-16-2024 ambulatory [facility] Start: 04-15-2024 End: 04-15-2024 [facility] Start: 04-13-2024 End: 04-13-2024 ambulatory [facility] Start: 04-09-2024 End: 04-09-2024 [facility] Start: 04-08-2024 End: 04-16-2024 ambulatory [facility] Start: 04-06-2024 End: 04-06-2024 ambulatory [facility] Facility:[facility] Start: 04-06-2024 End: 04-16-2024 ambulatory [facility] Start: 04-03-2024 Telephone encounter Luís warner APRN.VEGETABLE BUNCHER Work Phone: [facility] Comment on above: Medication Problem Start: 04-01-2024 Telephone encounter Crys SHEEHAN H ematology/Oncology Start: 04-01-2024 End: 04-16-2024 [facility] Start: 03-31-2024 End: 03-31-2024 Telemedicine consultation with patient Paulina Fernandes MD Work Phone: Cardiology Start: 03-31-2024 End: 03-31-2024 ambulatory Paulina Fernandes MD Work Phone: Cardiology Comment on above: 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coronary bypass graft of naknek heart without angina pectoris (Primary Dx); Chronic systolic heart failure (HCC); S/P CABG (coronary artery bypass graft); Non-rheumatic mitral regurgitation; Severe mitral regurgitation Start: 03-31-2024 End: 03-31-2024 Patient encounter procedure Yung Andrade MD Work Phone: Radiation Oncology Comment on above: History of prostate cancer (Primary Dx) Start: 03-30-2024 End: 03-30-2024 [facility] Facility:[facility] Start: 03-30-2024 End: 03-30-2024 [facility] Facility:[facility] Start: 03-30-2024 End: 03-30-2024 Patient encounter procedure Efren Brady MD Work Phone: Cardiology Comment on above: Cardiomyopathy, isch emic (Primary Dx); S/P mitral valve clip implantation; Stage 3b chronic kidney disease (HCC) Start: 03-30-2024 Telephone encounter Efren Brady MD Work Phone: Cardiology Comment on above: Medication Assistanc e Program Start: 03-30-2024 End: 03-30-2024 [facility] Facility:[facility] Start: 03-30-2024 End: 04-16-2024 [facility] Start: 03-26-2024 End: 03-26-2024 [facility] Start: 03-25-2024 End: 03-25-2024 [facility] Start: 03-24-2024 End: 03-24-2024 [facility] Facility:[facility] Start: 03-23-2024 End: 03-23-2024 ambulatory SAMM THOMPSON [facility] Start: 03-18-2024 End: 03-18-2024 ambulatory Luís Skinner VEGETABLE BUNCHER Work Phone: Neurology [facility] Comment on above: Amaurosis fugax (Ami sandeep Dx); Carotid stenosis, 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, left; Atrial fibrillation, unspecified type (HCC); Mixed hyperlipidemia; Essential hypertension Start: 03-18-2024 End: 03-18-2024 Telemedicine consultation with patient Luís Skinner ANAND.VEGETABLE BUNCHER Work Phone: Neurology [facility] Start: 03-06-2024 ambulatory Gavi Childress MD Work Phone: [facility] Start: 03-05-2024 End: 03-05-2024 Evaluation and management of inpatient GAVI CHILDRESS Facility:[facility] Start: 03-03-2024 End: 03-03-2024 Evaluation and management of inpatient GAVI CHILDRESS Facility:[facility] Start: 03-02-2024 End: 03-02-2024 Evaluation and management of inpatient Susi Whitehead OD Work Phone: Ophthalmology Comment on above: Cerebrovascular acci 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) (Primary Dx); Cataract, nuclear sclerotic senile, bilateral Start: 03-02-2024 End: 03-02-2024 ambulatory ZAHRA LEON [facility] Start: 03-01-2024 Evaluation and management of inpatient JEANINE MILLARD Facility:[facility] Start: 02-28-2024 Telephone encounter Neurology [facility] Comment on above: Patient Update (Pre admission ) Start: 02-27-2024 Chart abstracting Aravind Arriaga MD Work Phone: Neurosurgery Comment on above: Amaurosis fugax Start: 02-27-2024 Telephone encounter Shannon Mcnair APRN.VEGETABLE BUNCHER Work Phone: Cardiothoracic Comment on above: Patient Update Start: 02-26-2024 End: 03-01-2024 Emergency department patient visit ZAHRA LEON [facility] Start: 2024 End: 2024 Evaluation and management of inpatient PRISCILLA RAI Facility:[facility] Start: 02-17-2024 End: 02-17-2024 Evaluation and management of inpatient Isreal Rain MD Work Phone: Dentistry Comment on above: Dental caries (Prima ry Dx); Pre-operative clearance; Non-rheumatic mitral regurgitation; Severe mitral regurgitation Start: 02-17-2024 End: 02-17-2024 Preoperative state Isreal Rain MD Work Phone: [facility] Work Phone: Start: 02-17-2024 End: 02-17-2024 Orders Only Zuleyma Tineo TRANSITION NURSE.VEGETABLE BUNCHER Work Phone: Cardiology Comment on above: 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) (Primary Dx) Start: 02-17-2024 End: 03-16-2024 ambulatory [facility] Start: 02-15-2024 End: 2024 Evaluation and management of inpatient PRISCILLA RAI Facility:[facility] Start: 02-14-2024 ambulatory [facility] Work Phone: Cardiology Comment on above: M-AZAEL [facility]ra[facility] ed Start: 02-13-2024 End: 02-13-2024 ambulatory Priscilla Rai TRANSITION NURSE.VEGETABLE BUNCHER Work Phone: Cardiology Comment on above: TMTT Meeting 02/13 Start: 02-13-2024 End: 02-15-2024 ambulatory Marce Arana TRANSITION NURSE.PRESS MANAGER Work Phone: Cardiology Start: 02-12-2024 Telephone encounter Marce truong TRANSITION NURSE.PRESS MANAGER Work Phone: Cardiology Comment on above: Patient Update Start: 02-12-2024 End: 02-15-2024 ambulatory [facility] Start: 02-11-2024 Telephone encounter Research N lisae [facility] Work Phone: Cardiology Start: 02-05-2024 End: 02-05-2024 Nursing evaluation of patient and report [facility] Work Phone: Cardiology Comment on above: EMPOWER Trial IRB# [id number] Screening visit (Primary Dx) Start: 02-05-2024 End: 02-15-2024 [facility] Start: 02-05-2024 End: 02-05-2024 Patient encounter procedure Research Nurse Card Intervention [facility] Work Phone: [facility] Start: 02-05-2024 End: 02-15-2024 [facility] Start: 02-03-2024 End: 02-03-2024 [facility] Start: 01-30-2024 End: 01-30-2024 Nursing evaluation of patient and report [facility] Nurse [facility] Work Phone: Cardiology Comment on above: [id number] Empower Study (Primary Dx) Severe mitral regurg itation (Primary Dx); Examination of participant in clinical trial; SANTILLAN (dyspnea on exertion) Start: 01-30-2024 Patient encounter procedure Andrés Savage MD Work Phone: [facility] Start: 01-30-2024 End: 01-30-2024 [facility] Start: 01-30-2024 Encounter for examination for normal comparison and control in clinical research program [facility] Start: 01-30-2024 End: 01-30-2024 Patient entered into trial Research Nurse [facility] Intervention [facility] Work Phone: [facility] Start: 01-29-2024 End: 01-29-2024 [facility] Start: 01-28-2024 Orders Only Virgil Howell Work Phone: Cardiology Comment on above: Severe mitral regurg itation (Primary Dx); Status post implantation of mitral valve leaflet clip Start: 01-27-2024 End: 01-27-2024 [facility] Start: 01-23-2024 End: 01-23-2024 [facility] Start: 01-22-2024 End: 01-22-2024 [facility] Start: 01-20-2024 End: 01-20-2024 [facility] Start: 01-16-2024 End: 01-16-2024 [facility] Start: 01-15-2024 End: 01-15-2024 [facility] Start: 01-14-2024 Telephone encounter Paulina Fernandes MD Work Phone: Cardiology Comment on above: Medication Question (Patient is asking if after reviewing labs are there any medication changes?) Start: 01-13-2024 End: 01-13-2024 [facility] Start: 01-10-2024 End: 01-10-2024 [facility] Facility:[facility] Start: 01-10-2024 End: 01-10-2024 Nursing evaluation of patient and report Research Nurse [facility] Work Phone: Cardiology Comment on above: IRB 18-600 Empower A ssessment of the CARILLON Mitral Contour System in Treating Functional Mitral Regurgitation Associated with Heart Failure PI: Hussein (Primary Dx) Start: 01-10-2024 End: 01-10-2024 Patient entered into trial Research Nurse Card Intervention [facility] Work Phone: [facility] Start: 01-10-2024 End: 01-10-2024 [facility] Facility:[facility] Start: 01-10-2024 End: 01-10-2024 Patient encounter procedure Paulina Fernandes MD Work Phone: Cardiology Comment on above: 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) (Primary Dx); 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); Chronic systolic heart failure (HCC); S/P CABG (coronary artery bypass graft); Chronic 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); Acute on chronic clinical systolic heart failure (HCC); Stage 3b chronic kidney disease (HCC); Ischemic cardiomyopathy; Non-ischemic cardiomyopathy (HCC); Shortness of breath; Unspecified severe protein-calorie malnutrition (HCC) Start: 01-09-2024 End: 01-09-2024 [facility] Start: 01-08-2024 End: 01-08-2024 [facility] Start: 01-06-2024 End: 01-06-2024 [facility] Start: 01-02-2024 End: 01-02-2024 Nursing evaluation of patient and report [facility] Work Phone: Cardiology Comment on above: IRB 18-600 Loli Gagnon ssessment of the CARILLON Mitral Contour System in Treating Functional Mitral Regurgitation Associated with Heart Failure PI: Hussein (Primary Dx) Start: 01-02-2024 End: 01-02-2024 Patient entered into trial Research Nurse [facility] Intervention [facility] Work Phone: [facility] Start: 01-02-2024 End: 01-02-2024 [facility] Facility:[facility] Start: 01-02-2024 Telephone encounter Research N urse Card Intervention [facility] Work Phone: Cardiology Comment on above: Appointment; Patient Update Start: 01-02-2024 End: 01-02-2024 [facility] Start: 01-01-2024 End: 01-01-2024 [facility] Start: 01-01-2024 End: 01-01-2024 Nursing evaluation of patient and report Research Nurse [facility] Intervention [facility] Work Phone: Cardiology Comment on above: Study name: EMPOWER Trial IRB# [id number] (Primary Dx) Start: 01-01-2024 End: 01-01-2024 Patient entered into trial Research Nurse Card Intervention [facility] Work Phone: [facility] Start: 12-30-2023 End: 12-30-2023 ambulatory [facility] Start: 12-30-2023 End: 12-30-2023 Nursing evaluation of patient and report Research Nurse Card Intervention [facility] Work Phone: Cardiology Comment on above: IRB 18-600 Empower A ssessment of the CARILLON Mitral Contour System in Treating Functional Mitral Regurgitation Associated with Heart Failure PI: Hussein (Primary Dx) Start: 12-30-2023 End: 12-30-2023 Patient entered into trial Research Nurse Card Intervention [facility] Work Phone: [facility] Start: 12-26-2023 End: 12-26-2023 ambulatory Kristina Ceja APRN.VEGETABLE BUNCHER Work Phone: Cardiology Comment on above: TMTT Meeting Start: 12-26-2023 End: 12-26-2023 Patient encounter procedure Efren Brady MD Work Phone: Cardiology Comment on above: Severe mitral regurg itation (Primary Dx); Cardiomyopathy, ischemic; S/P CABG (coronary artery bypass graft); Sore throat; Unspecified severe protein-calorie malnutrition (HCC) Start: 12-25-2023 End: 01-15-[address] [facility] [address] Start: 12-25-2023 End: 01-15-2024 ambulatory [facility] Start: 12-22-2023 Follow-up encounter Rubén Carney ba, MD Work Phone: [facility] Start: 12-22-2023 ICD Remote F/U Rubén Howell Work Phone: [facility] Start: 12-19-2023 End: 12-19-2023 Clinical Support [facility] Exercise [address] [facility] Start: 12-17-2023 Telephone encounter Virgil Pacheco nd, MD Work Phone: Cardiology Comment on above: Cardiac Rehab Start: 12-17-2023 End: 12-17-2023 ambulatory [facility] Start: 12-12-2023 End: 12-12-2023 Patient encounter procedure Carmelina Whaley Mayor SRINIVASAN Work Phone: Cardiology Comment on above: Mitral valve insuffi ciency, unspecified etiology (Primary Dx); HFrEF (heart failure with reduced ejection fraction) (HCC); SOB (shortness of breath); Hx of CABG; 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; Essential hypertension Start: 12-12-2023 End: 12-12-2023 ambulatory CARMELINA MAYA Facility:[facility] Start: 12-02-2023 End: 12-02-2023 ambulatory [facility] Start: 11-26-2023 Telephone encounter Virgil Pacheco nd, MD Work Phone: Cardiology Comment on above: Patient Update Atherosclerosis of n ative coronary artery, unspecified whether angina present, unspecified whether naknek or transplanted heart (Primary Dx) Start: 11-25-2023 Follow-up encounter Rubén Carney ba, MD Work Phone: [facility] Start: 11-25-2023 ICD Remote F/U Rubén Howell Work Phone: [facility] Start: 11-22-2023 Evaluation and management of inpatient CHARU MARTIN [facility] Start: 11-21-2023 Evaluation and management of inpatient JUAN PABLO TAVARES [facility] Start: 11-19-2023 End: 11-25-2023 Evaluation and management of inpatient RAMA [facility] Start: 11-18-2023 End: 11-18-2023 ambulatory [facility] Start: 10-29-2023 End: 10-29-2023 Patient encounter procedure Virgil Carrillo MD Work Phone: Cardiology Comment on above: Chronic combined sys tolic and diastolic congestive heart failure (HCC) (Primary Dx); 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; Essential hypertension; Hx of CABG; Mixed hyperlipidemia; Systolic heart failure, unspecified HF chronicity (HCC); 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 kidney disease, unspecified CKD stage, unspecified whether snf insulin use (HCC); PVD (peripheral vascular disease) (HCC); Atherosclerotic heart disease of n[place]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); Mitral valve insufficiency, unspecified etiology Start: 10-29-2023 End: 10-29-2023 ambulatory TIARRA LOPEZ Facility:[facility] Start: 10-29-2023 Encounter for preprocedural cardiovascular examination SAMM THOMPSON [facility] Start: 10-28-2023 End: 10-29-2023 [facility] Start: 10-23-2023 End: 10-23-2023 ambulatory RAJAT [facility] Start: 10-22-2023 End: 10-22-2023 ambulatory SAMM THOMPSON [facility] Start: 10-10-2023 End: 10-10-2023 [facility] Start: 10-01-2023 End: 10-01-2023 ambulatory Yung ANDRADE Facility:[facility] Start: 09-28-2023 Evaluation and management of inpatient RAMA [facility] Start: 09-27-2023 Evaluation and management of inpatient EHAB [facility] Start: 09-27-2023 End: 09-29-2023 Evaluation and management of inpatient SAMM THOMPSON [facility] Start: 09-24-2023 End: 09-24-2023 ambulatory SAMM THOMPSON Facility:[facility] Start: 08-27-2023 Telephone encounter Virgil Pacheco nd, MD Work Phone: Cardiology Comment on above: Appointment (Left a message with the patient regarding the cancellation of 10/22/2023 with . 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) (Primary Dx); PVD (peripheral vascular disease) (HCC); Atherosclerotic heart disease of nak[place]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) Start: 02-21-2023 Follow-up encounter Rubén Carney ba, MD Work Phone: [facility] Start: 02-21-2023 ICD Remote F/U Rubén Howell Work Phone: [facility] Start: 02-08-2023 End: 02-09-[address] [facility]AN [facility] Facility: Start: 12-03-2022 Orders Only Zahra Pierre MD Work Phone: Cardiology Start: 11-29-2022 Patient encounter procedure John Jefferson MD Work Phone: Vascular Surg Dept Start: 11-29-2022 Telephone encounter John carrillo MD Work Phone: Vascular Surg Dept Comment on above: Surgery Cancelled Start: 11-06-2022 Follow-up encounter Rubén Carney ba, MD Work Phone: [facility] Start: 11-06-2022 ICD Remote F/U Rubén Howell Work Phone: [facility] Start: 10-31-2022 Telephone encounter John carrillo MD Work Phone: Vascular Surg Dept Comment on above: Appointment Start: 10-25-2022 End: 10-25-2022 Patient encounter procedure Zahra Pierre MD Work Phone: Cardiology Comment on above: 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nak[place] coronary artery of nak[place] heart without angina pectoris (Primary Dx); Heart failure, acute systolic (HCC) Start: 10-25-2022 End: 10-25-2022 Subsequent hospital visit by physician [facility] Comment on above: Chronic systolic hea rt failure (HCC) [I50.22] Start: 10-02-2022 End: 10-02-2022 Patient encounter procedure Yung Andrade MD Work Phone: Radiation Oncology Comment on above: Malignant neoplasm o f prostate (HCC) (Primary Dx) Start: 09-18-2022 End: 12-31-2022 ambulatory [facility] Facility: Start: 09-12-2022 End: 09-13-[address] MALAIKA ANDRADE Facility:[facility] Start: 09-07-2022 Telephone encounter Zahra mata MD Work Phone: Cardiology Comment on above: Nm Pet Request Start: 09-06-2022 Orders Only Zahra Pierre MD Work Phone: Cardiology Comment on above: Chronic systolic hea rt failure (HCC) (Primary Dx); 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 Start: 09-03-2022 End: 09-03-2022 Patient encounter procedure John Jefferson MD Work Phone: Vascular Surg Dept Comment on above: 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n[place] coronary artery of n[place] heart without angina pectoris (Primary Dx); Heart failure, acute systolic (HCC); Mixed hyperlipidemia; Stenosis of left carotid artery; Cerebrovascular acci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); Chronic 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); Carotid stenosis, asymptomatic, bilateral Start: 08-30-2022 End: 08-31-2022 ambulatory [facility] Facility: Start: 08-07-2022 Follow-up encounter Rubén Carney ba, MD Work Phone: [facility] Start: 08-07-2022 ICD Remote F/U Rubén Howell Work Phone: [facility] Start: 08-03-2022 Orders Only John Howell Work Phone: Vascular Surg Dept Comment on above: Bilateral carotid ar annalee stenosis (Primary Dx) Start: 08-01-2022 Telephone encounter Samm Thompson MD Work Phone: [address] [place] [address] Comment on above: Appointment Start: 07-30-2022 Telephone encounter Samm Thompson MD Work Phone: [facility] Comment on above: Appointment Start: 07-25-2022 Telephone encounter Zahra mata MD Work Phone: Cardiology Comment on above: Received Outside Med ical Records Start: 07-23-2022 End: 07-24-2022 [facility] Start: 07-18-2022 End: 07-19-[address] SAMM THOMPSON . Facility:[facility] Start: 06-27-2022 End: 06-28-[address] SAMM THOMPSON . Facility:[facility] Start: 06-27-2022 End: 06-28-[address] SAMM THOMPSON . Facility:[facility] Start: 06-18-2022 Encounter for preprocedural laboratory [facility] Start: 06-14-2022 End: 06-15-2022 Encounter for preprocedural laboratory examination DR SAMM THOMPSON . Facility:[facility] Start: 06-14-2022 End: 06-15-[address] SAMM THOMPSON . Facility:[facility] Start: 06-07-2022 End: 09-18-[address] SAMM THOMPSON . Facility:[facility] Start: 06-06-2022 End: 06-06-2022 Orders Only Zahra Pierre MD Work Phone: Cardiology Comment on above: Chronic systolic hea rt failure (HCC) (Primary Dx) Mitral valve insuffi ciency, unspecified etiology (Primary Dx); Chronic systolic heart failure (HCC) Start: 05-17-2022 End: 05-24-2022 Evaluation and management of inpatient SHARON HOOKS Facility:[facility] [[email or web address] Start: 05-16-2022 End: 05-17-2022 ambulatory SHARON HOOKS . Facility: Start: 05-14-2022 End: 05-15-[address] SAMM THOMPSON . Facility:[facility]1 Start: 05-08-2022 Follow-up encounter Rubén Carney ba, MD Work Phone: [facility] Start: 05-08-2022 ICD Remote F/U Rubén Howell Work Phone: [facility] Start: 04-26-2022 End: 04-26-2022 ambulatory Yung Andrade MD Work Phone: Radiation Oncology Comment on above: Malignant neoplasm o f prostate (HCC) (Primary Dx) Start: 04-26-2022 End: 04-26-2022 Telemedicine consultation with patient Yung Denilson Andrade MD Work Phone: [employer] Start: 02-06-2022 Follow-up encounter Rubén Carney ba, MD Work Phone: [facility] Start: 02-06-2022 ICD Remote F/U Rubén Howell Work Phone: [facility] Start: 01-15-2022 Orders Only Carlos Barone RN Dominick tology/Oncology Comment on above: Unspecified hypothyr oidism (Primary Dx); Hypercholesterolemia; Abnormal finding of blood chemistry, unspecified Start: 01-03-2022 Patient encounter procedure Yung Andrade MD Work Phone: [employer] Start: 01-03-2022 Radiation Oncology Note G Navin Andrade MD Work Phone: Radiation Oncology Comment on above: Completion Note Start: 12-18-2021 Patient encounter procedure Yung Andrade MD Work Phone: [employer] Start: 12-18-2021 Radiation Oncology Note Yung Andrade MD Work Phone: Radiation Oncology Comment on above: Completion Note Start: 12-11-2021 End: 12-11-2021 Patient encounter procedure Yung Andrade MD Work Phone: Radiation Oncology Comment on above: Malignant neoplasm o f prostate (HCC) (Primary Dx) Start: 10-12-2021 End: 10-12-2021 Subsequent hospital visit by physician Yung Andrade MD Work Phone: Radiology [facility] Start: 09-13-2021 End: 09-13-2021 Subsequent hospital visit by physician Arrival Time Radiology Work Phone: Radiology [facility] Start: 09-11-2021 Encounter for other preprocedural examination SAMM HOY [facility] Start: 04-30-2012 Patient encounter status ARACELI phillips MD Work Phone: [facility] Work Phone: Start: 04-28-2012 End: 05-01-2012 Preprocedural examination done [employer] Work Phone: [facility] Procedures Date Procedure Procedure Detail Performing Clinician Start: 08-19-2024 Prgrmg dev eval impl antable subq lead dfb system [facility] Imaging [place] Provider Start: 07-23-2024 Echocardiography DOUGLA S HOY Start: 07-22-2024 Antibody screen SAMM HOY Comment on above: Order Comment: Speci men Type: BLOOD SPECIMENOrdering Facility: [facility] Address: [address] [place] [address] Performed By: #### T SCR ####CC MAIN BLOOD BANKCLIA [id number] [address] Start: 05-14-2024 Colonoscopy SAMM HO Y Start: 05-14-2024 Antibody screen SAMM HOY Comment on above: Order Comment: Speci men Type: BLOOD SPECIMENOrdering Facility: [facility] Address: [address] [place] [address] Performed By: #### T SCR ####CC MAIN BLOOD BANKCLIA [id number] [address] [place] Start: 05-11-2024 Echocardiography DOUGLA S HOY Start: 05-10-2024 Antibody screen SAMM HOY Comment on above: Order Comment: Speci men Type: BLOOD SPECIMENOrdering Facility: [facility] Address: [address] [place] [address] Performed By: #### T SCR ####CC MAIN BLOOD BANKCLIA [id number] [address] [place] Start: 05-06-2024 Echocardiography DOUGLA S HOY Start: 03-30-2024 Echocardiography DOUGLA S HOY Start: 03-03-2024 Antibody screen SAMM HOY Comment on above: Order Comment: Speci men Type: BLOOD SPECIMENOrdering Facility: [facility] Address: [address] [place] [address] Performed By: #### T SCR ####CC MAIN BLOOD BANKCLIA [id number] [address] Start: 03-02-2024 Visual field xm uni/ bi w/interp extended exam Susi Whitehead OD Work Phone: Start: 2024 Echocardiography PARISLA S HOY Start: 02-16-2024 Antibody screen SAMM HOY Comment on above: Order Comment: Speci men Type: BLOOD SPECIMENOrdering Facility: [facility] Address: [address] [place] [address] Performed By: #### T SCR ####CC MAIN BLOOD BANKCLIA [id number] [address] Start: 02-05-2024 Echocardiography PARISLA S HOY Start: 12-25-2023 Follow-up visit Follow-up BEKA HARMON Start: 12-22-2023 ICD REMOTE CHECK Rubén Bucio MD Work Phone: Start: 12-12-2023 Echocardiography HUONG S HOY Start: 12-02-2023 Follow-up visit RAMA MA HMOOD Start: 11-25-2023 ICD REMOTE CHECK Rubén Bucio MD Work Phone: Start: 11-18-2023 Follow-up visit RAMA MA HMOOD Start: 10-28-2023 Follow-up visit RAMA MA HMOOD Start: 10-23-2023 Follow-up visit RAMA MA HMOOD Start: 02-21-2023 ICD REMOTE CHECK Rubén Bucio MD Work Phone: Start: 11-06-2022 ICD REMOTE CHECK Rubén Bucio MD Work Phone: Start: 10-25-2022 Myocrd img pet prfuj machine stacker std rst&strs cncrnt ct Zahra Pierre MD Work Phone: Start: 10-25-2022 Myocrd img pet prfuj w/metab 2rtracer cncrnt ct Zahra Pierre MD Work Phone: Start: 10-25-2022 End: 10-25-2022 Gluc bld gluc mntr dev cleared fda spec home use [facility] Provider Start: 09-12-2022 End: 09-12-2022 PSA screening [facility] Provider Comment on above: Performed By: #### B MP, BNP #### [facility] [address] [place] [address] Dr. Silva Burnett Start: 08-07-2022 ICD REMOTE CHECK Rubén Bucio MD Work Phone: Start: 05-08-2022 ICD REMOTE CHECK Rubén Bucio MD Work Phone: Start: 02-06-2022 ICD REMOTE CHECK Rubén Bucio MD Work Phone: Start: 09-13-2021 Ct thorax w/contrast material Victor M Duval MD Work Phone: Start: 08-17-2021 Adult depression scr eening assessment [facility] 1 Start: 06-17-2012 History of coronary artery bypass grafting S/P CABG (coronary artery bypass graft) ARACELI Andrade MD Work Phone: History of coronary artery bypass grafting Hx of CABG Virgil Carrillo MD Work Phone: History of coronary artery bypass grafting Hx of CABG Carmelina Ramos TRANSITION NURSE.VEGETABLE BUNCHER Work Phone: History of coronary artery bypass grafting S/P CABG (coronary artery bypass graft) Efren Brady MD Work Phone: History of coronary artery bypass grafting S/P CABG (coronary artery bypass graft) Paulina Fernandes MD Work Phone: History of coronary artery bypass grafting S/P CABG (coronary artery bypass graft) Paulina Fernandes MD Work Phone: History of coronary artery bypass grafting S/P CABG (coronary artery bypass graft) Nj Wei MD Work Phone: Plan of Treatment Date Care Activity Detail Author Start: 06-13-2030 DTaP,Tdap and Td Vaccines (2 - Tdap) DTaP,Tdap and Td Vaccines (2 - Tdap) [facility] Start: 06-13-2030 Urine microalbumin profile [facility] Start: 10-25-2025 DIABETES SCREEN DIABETES SCREEN [facility] Start: 06-06-2025 DIABETES SCREEN DIABETES SCREEN [facility] Start: 04-19-2025 DIABETES SCREEN DIABETES SCREEN [facility] Start: 03-02-2025 Glaucoma screening Dilated Retinal Exam [facility] Start: 03-01-2025 End: 03-01-2025 Patient encounter procedure 03/01/2025 11:45 AM EDT Office Visit Cardiology [address] [place] [address] Nj Wei MD [address] [place] [address] Dx: PVC Cardiology Comment on above: Dx: PVC Start: 03-01-2025 End: 03-01-2025 Patient encounter procedure 03/01/2025 10:30 AM EDT Appointment Cardiology [address] [place], [place] [id number] Dx: PVC Cardiology Comment on above: Dx: PVC Start: 03-01-2025 End: 03-01-2025 ambulatory 03/01/2025 9:45 AM EDT Results Only Cardiology [address] [place] [id number] Dx: PVC Cardiology Comment on above: Dx: PVC Start: 02-25-2025 Adult BMI Screening Adult BMI Screening [facility] Start: 02-15-2025 Hepatitis B surface antibody level LDL Cholesterol [facility] Start: 01-15-2025 DIABETES SCREEN DIABETES SCREEN [facility] Start: 12-22-2024 End: 12-22-2024 ambulatory 12/22/2024 8:30 AM EDT [facility] Cardiology [address] [place] [address] Carmela Fernandes MD [address] [place] [address] Acute on chronic systolic congestive heart failure Cardiology Comment on above: Acute on chronic systolic congestive hea rt failure Start: 12-02-2024 End: 12-02-2024 Patient encounter procedure 12/02/2024 3:00 PM EDT Office Visit Kidney Medicine [address] [facility] [place] [address] Rubi Douglas I, MD [address] [place] [address] CKD Kidney Medicine Comment on above: CKD Start: 11-09-2024 DIABETES SCREEN DIABETES SCREEN [facility] Start: 11-09-2024 Hemoglobin A1c measurement HbA1C [facility] Start: 10-07-2024 End: 10-07-2024 ambulatory 10/07/2024 2:00 PM EST [facility] [address] [place] [address] Tuyet Rodrigues APRN.VEGETABLE BUNCHER [address] [place] [address] virtual f/u to review carotid ultrasound (luís on leave) [facility] Comment on above: virtual f/u to review carotid ultrasound (luís on leave) Start: 10-07-2024 End: 01-06-2025 TESTOSTERONE, FREE AND TOTAL TESTOSTERONE, FREE AND TOTAL Lab Routine History of prostate cancer Expected: 10/07/2024, Expires: 01/06/2025 [facility] Comment on above: Expected: 10/07/2024, Expires: Start: 10-05-2024 End: 10-05-2024 ambulatory 10/05/2024 12:00 PM EST Results Only Cardiology [address] [place] [address] Dx: Cardiomyopathy, ischemic Cardiology Comment on above: Dx: Cardiomyopathy, ischemic Start: 10-05-2024 End: 10-05-2024 Patient encounter procedure Vascular Medicine Comment on above: DX: Carotid stenosis, symptomatic w/o in farct, left Dx: Cardiomyopathy, ischemic US Carotid Bilateral Start: 10-01-2024 End: 12-31-2024 Prostate specific Ag [Mass/volume] in Serum or Plasma PROSTATE-SPECIFIC ANTIGEN DIAGNOSTIC Lab Routine History of prostate cancer Expected: 10/01/2024, Expires: 12/31/2024 [facility] Work Phone: Comment on above: Expected: 10/01/2024, Expires: Start: 09-29-2024 End: 09-29-2024 ambulatory 09/29/2024 4:00 PM EST Results Only Cardiology [address] [place] [address] PVC Cardiology Comment on above: PVC Start: 09-29-2024 End: 09-29-2024 Patient encounter procedure Radiation Oncology Comment on above: 6 month rv PVC Start: 09-28-2024 Hepatitis B surface antibody level LDL Cholesterol [facility] Start: 09-28-2024 End: 09-28-2024 ambulatory 09/28/2024 1:45 PM EST Results Only Cardiology [address] [place] [id number] Dx: Cardiomyopathy, ischemic Cardiology Comment on above: Dx: Cardiomyopathy, ischemic Start: 09-28-2024 End: 09-28-2024 Patient encounter procedure Cardiology Comment on above: Dx: Cardiomyopathy, ischemic Start: 09-22-2024 End: 09-22-2024 Patient encounter procedure 09/22/2024 1:15 PM EST Office Visit [facility] [address] [place] [address] [place] [address] lab [facility] Comment on above: lab Start: 09-11-2024 End: 12-11-2024 Basic metabolic 2000 panel - Serum or Plasma BASIC METABOLIC PANEL Lab Routine Chronic systolic heart failure (HCC) Expected: 09/11/2024, Expires: 12/11/2024 [facility] Work Phone: Comment on above: Expected: 09/11/2024, Expires: Start: 09-11-2024 End: 12-11-2024 Natriuretic peptide.B prohormone N-Terminal [Mass/volume] in Serum or Plasma NT PRO BNP Lab Routine Chronic systolic heart failure (HCC) Expected: 09/11/2024, Expires: 12/11/2024 [facility] Comment on above: Expected: 09/11/2024, Expires: Start: 09-07-2024 End: 09-07-2024 Patient encounter procedure 09/07/2024 2:45 PM EST Office Visit Cardiology [address] [place], [place] [id number] Carmela Fernandes MD [address] [place] [address] Main, Nurse Card Chf [address] [place] [address] DX: Acute on chronic systolic congestive heart failure Cardiology Comment on above: DX: Acute on chronic systolic congestive heart failure Start: 09-07-2024 End: 09-07-2024 ambulatory 09/07/2024 2:00 PM EST Results Only Main [place] [address] [address] [place] [address] DX: Acute on chronic systolic congestive heart failure [facility] J[facility] Draw Station Comment on above: DX: Acute on chronic systolic congestive heart failure Start: 09-07-2024 End: 12-07-2024 Basic metabolic 2000 panel - Serum or Plasma BASIC METABOLIC PANEL Lab Routine Chronic systolic heart failure (HCC) Non-rheumatic mitral regurgitation Expected: 09/07/2024, Expires: 12/07/2024 [facility] Work Phone: Comment on above: Expected: 09/07/2024, Expires: Start: 09-07-2024 End: 12-07-2024 CBC panel - Blood by Automated count COMPLETE BLOOD COUNT Lab Routine Chronic systolic heart failure (HCC) Non-rheumatic mitral regurgitation Expected: 09/07/2024, Expires: 12/07/2024 [facility] Comment on above: Expected: 09/07/2024, Expires: Start: 09-07-2024 End: 12-07-2024 Natriuretic peptide.B prohormone N-Terminal [Mass/volume] in Serum or Plasma NT PRO BNP Lab Routine Chronic systolic heart failure (HCC) Non-rheumatic mitral regurgitation Expected: 09/07/2024 (Approximate), Expires: 12/07/2024 [facility] Comment on above: Expected: 09/07/2024 (Approximate), Expi res: 12/07/2024 Start: 08-31-2024 End: 08-31-2024 ambulatory 08/31/2024 2:00 PM EST Results Only [facility] [address] [place] [address] [place] [address] DX: Acute on chronic systolic congestive heart failure [facility] Comment on above: DX: Acute on chronic systolic congestive heart failure Start: 08-27-2024 End: 11-26-2024 Basic metabolic 2000 panel - Serum or Plasma BASIC METABOLIC PANEL Lab Routine Heart failure, acute systolic (HCC) Acute on chronic systolic congestive heart failure (HCC) Carotid stenosis, 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, left Expected: 08/27/2024, Expires: 11/26/2024 [facility] Comment on above: Expected: 08/27/2024, Expires: Start: 08-27-2024 End: 11-26-2024 CBC W Auto Differential panel - Blood COMPLETE BLOOD COUNT AND DIFFERENTIAL Lab Routine Heart failure, acute systolic (HCC) Acute on chronic systolic congestive heart failure (HCC) Carotid stenosis, 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, left Expected: 08/27/2024, Expires: 11/26/2024 [facility] Comment on above: Expected: 08/27/2024, Expires: Start: 08-27-2024 End: 11-26-2024 Natriuretic peptide.B prohormone N-Terminal [Mass/volume] in Serum or Plasma NT PRO BNP Lab Routine Heart failure, acute systolic (HCC) Acute on chronic systolic congestive heart failure (HCC) Carotid stenosis, 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, left Expected: 08/27/2024, Expires: 11/26/2024 [facility] Work Phone: Comment on above: Expected: 08/27/2024, Expires: 5 Start: 08-19-2024 End: 08-19-2024 Patient encounter procedure Cardiology Comment on above: Dx: PVC DX: Acute on chronic systolic congestive heart failure Start: 08-19-2024 End: 08-19-2024 ambulatory 08/19/2024 9:00 AM EST Results Only Cardiology [address] [place] [address] Dx: PVC Cardiology Comment on above: Dx: PVC Start: 08-17-2024 Hemoglobin A1c measurement HbA1C [facility] Start: 07-31-2024 End: 07-31-2024 Patient encounter procedure 07/31/2024 3:40 PM EST Office Visit Kidney Medicine [address] [place] [address] [place] [address] [place] [address] CKD Kidney Medicine Comment on above: CKD Start: 07-16-2024 End: 07-16-2024 Clinical Support 07/16/2024 1:45 PM EDT Clinical Support [facility] [address] [place] [address] [facility] - Cardiac [facility] Start: 07-15-2024 End: 07-15-2024 Clinical Support 07/15/2024 1:45 PM EDT Clinical Support [facility] Cardiac [facility]hab [address] [place] [address] [facility] Card[facility] Start: 07-13-2024 End: 07-13-2024 Clinical Support 07/13/2024 1:45 PM EDT Clinical Support [facility] Card[facility] [address] [place] [address] [facility] Start: 07-09-2024 End: 07-09-2024 Clinical Support 07/09/2024 1:45 PM EDT Clinical Support [facility] Cardiac [facility]hab [address] [place] [address] [facility] Start: 07-08-2024 End: 07-08-2024 Clinical Support 07/08/2024 1:45 PM EDT Clinical Support [facility] Card[facility]hab [address] [place] [address] [facility] Start: 07-06-2024 End: 07-06-2024 Clinical Support 07/06/2024 1:45 PM EDT Clinical Support [facility] Cardiac [facility] [address] [place] [address] [facility] Start: 07-02-2024 End: 07-02-2024 Clinical Support 07/02/2024 1:45 PM EDT Clinical Support [facility] Card[facility] [address] [place] [address] [facility] Start: 07-01-2024 End: 07-01-2024 Clinical Support 07/01/2024 1:45 PM EDT Clinical Support [facility] Card[facility] Rehab [address] [place] [address] [facility] Start: 06-29-2024 End: 06-29-2024 Clinical Support 06/29/2024 1:45 PM EDT Clinical Support [facility] Card[facility] Rehab [address] [place] [address] [facility] Start: 06-25-2024 End: 06-25-2024 Clinical Support 06/25/2024 1:45 PM EDT Clinical Support [facility] Card[facility] [address] [place] [address] [facility] Start: 06-01-2024 End: 06-01-2024 ambulatory 06/01/2024 3:00 PM EDT [facility] Cardiology [address] [place] [address] Paulina Fernandes MD [address] [place], [place] [id number] DX: Dx: Cardiomyopathy, ischemic Cardiology Comment on above: DX: Dx: Cardiomyopathy, ischemic Start: 05-29-2024 End: 05-29-2024 Patient encounter procedure 05/29/2024 1:00 PM EDT Office Visit Kidney Medicine [address] [place] [address] [place] [address] [place] [id number] CKD Kidney Medicine Comment on above: CKD Start: 05-17-2024 Covid-19 Vaccine ( season) Covid-19 Vaccine ( season) [facility] Start: 05-17-2024 Covid-19 Vaccine ( season) Covid-19 Vaccine ( season) [facility] Start: 05-17-2024 [facility] Start: 05-06-2024 End: 05-06-2024 Patient encounter procedure 05/06/2024 3:30 PM EDT Office Visit Cardiology [address] [place] [phone] DX: Severe mitral regurgitation [I34.0] Cardiology Comment on above: DX: Severe mitral regurgitation [I34.0] Start: 04-07-2024 End: 07-07-2024 Basic metabolic 2000 panel - Serum or Plasma BASIC METABOLIC PANEL Lab Routine Chronic systolic heart failure (HCC) Expected: 04/07/2024 (Approximate), Expires: 07/07/2024 [facility] Work Phone: Comment on above: Expected: 04/07/2024 (Approximate), Expi res: 07/07/2024 Start: 04-06-2024 End: 04-06-2024 ambulatory 04/06/2024 1:30 PM EDT Results Only [facility] [address] [place] [address] [place] [address] [facility] Start: 03-31-2024 End: 06-30-2024 Natriuretic peptide.B prohormone N-Terminal [Mass/volume] in Serum or Plasma NT PRO BNP Lab Routine Chronic systolic heart failure (HCC) Expected: 03/31/2024, Expires: 06/30/2024 [facility] Comment on above: Expected: 03/31/2024, Expires: Start: 03-31-2024 End: 03-31-2024 ambulatory [facility] Comment on above: Dx: Dx: Cardiomyopathy, ischemic Start: 03-31-2024 End: 03-31-2024 Patient encounter procedure 03/31/2024 1:15 PM EDT Office Visit Radiation Oncology [address] [address] Yung Andrade MD [address] [place] [address] 6 month rv Radiation Oncology Comment on above: 6 month rv Start: 03-30-2024 End: 06-29-2024 Basic metabolic 2000 panel - Serum or Plasma [facility] Work Phone: Comment on above: Expected: 03/30/2024, Expires: 4 Start: 03-30-2024 End: 03-30-2024 Patient encounter procedure Cardiology Comment on above: HFrEF Severe mitral regurg itation Start: 03-30-2024 End: 03-30-2024 ambulatory 03/30/2024 1:30 PM EDT Results Only Cardiology [address] [place] [address] Severe mitral regurgitation Cardiology Comment on above: Severe mitral regurgitation Start: 03-24-2024 End: 03-24-2024 Patient encounter procedure 03/24/2024 1:00 PM EDT Office Visit [facility] [address] [address] lab [facility] Comment on above: lab Start: 03-18-2024 End: 03-18-2024 [facility] 03/18/2024 2:05 PM EDT [facility] Neurology [facility] [address] [place] [address] Luís Skinner, TRANSITION NURSE.VEGETABLE BUNCHER [address] [place] [address] HOSPITAL F/U - 0-2 week stroke fu appointment with an RYLIE, PER HOSPITAL ORDER Neurology [facility] Comment on above: HOSPITAL F/U - 0-2 week stroke fu appoin tment with an RYLIE, PER HOSPITAL ORDER Start: 03-11-2024 End: 03-11-2024 Patient encounter procedure 03/11/2024 11:20 AM EDT Office Visit Otolaryngology [address] [place] [address] Charu Kincaid, TRANSITION NURSE.VEGETABLE BUNCHER [address] [place] [address] Sore throat [J02.9] Otolaryngology Comment on above: Sore throat [J02.9] Start: 02-28-2024 End: 02-28-2024 Patient encounter procedure 02/28/2024 3:30 PM EDT Office Visit Cardiology [address] [place] [address] Keesha Mcarthur, TRANSITION NURSE.VEGETABLE BUNCHER [address] [place] [address] Severe mitral regurgitation Cardiology Comment on above: Severe mitral regurgitation Start: 02-28-2024 End: 02-28-2024 ambulatory 02/28/2024 3:00 PM EDT Results Only Cardiology [address] [place] [address] Severe mitral regurgitation Cardiology Comment on above: Severe mitral regurgitation Start: 02-27-2024 End: 2025 ECG COMPLETE ECG COMPLETE ECG Routine Severe mitral regurgitation Status post implantation of mitral valve leaflet clip Expected: 02/27/2024, Expires: 2025 [facility] Comment on above: Expected: 02/27/2024, Expires: Start: 02-18-2024 End: 02-18-2024 Evaluation and management of inpatient 02/18/2024 12:44 PM EDT - 02/18/2024 4:36 PM EDT Surgery Admitting [address] [place] [address] Isreal Rain MD [address] [facility] [address] [place] [address] TRANSCATHETER MITRAL VALVE REPAIR PERCUTANEOUS INCLUDE TRANSSEPTAL PUNCTURE WHEN PERFORMED INITIAL PROSTHESIS Admitting Comment on above: TRANSCATHETER MITRAL VALVE REPAIR PERCUT ANEOUS INCLUDE TRANSSEPTAL PUNCTURE WHEN PERFORMED INITIAL PROSTHESIS Start: 02-18-2024 End: 02-18-2024 Tcat mitral valve repair initial prosthesis TRANSCATHETER MITRAL VALVE REPAIR PERCUTANEOUS INCLUDE TRANSSEPTAL PUNCTURE WHEN PERFORMED INITIAL PROSTHESIS Mitral valve insufficiency, unspecified etiology 02/18/2024 12:44 PM EDT [facility] Start: 02-18-2024 End: 02-18-2024 Evaluation and management of inpatient 02/18/2024 11:03 AM EDT - 02/18/2024 2:55 PM EDT Surgery Admitting [address] [place] [address] Isreal Rain MD [address] [facility] [address] [place] [address] TRANSCATHETER MITRAL VALVE REPAIR PERCUTANEOUS INCLUDE TRANSSEPTAL PUNCTURE WHEN PERFORMED INITIAL PROSTHESIS Admitting Comment on above: TRANSCATHETER MITRAL VALVE REPAIR PERCUT ANEOUS INCLUDE TRANSSEPTAL PUNCTURE WHEN PERFORMED INITIAL PROSTHESIS Start: 02-18-2024 End: 02-18-2024 Tcat mitral valve repair initial prosthesis TRANSCATHETER MITRAL VALVE REPAIR PERCUTANEOUS INCLUDE TRANSSEPTAL PUNCTURE WHEN PERFORMED INITIAL PROSTHESIS Mitral valve insufficiency, unspecified etiology 02/18/2024 11:03 AM EDT [facility] Start: 02-18-2024 End: 02-18-2024 Patient encounter procedure 02/18/2024 10:45 AM EDT Office Visit Cardiology [address] [id number] to be admitted prior on 02/14 and will remain in the house for the procedure. Cardiology Comment on above: to be admitted prior on 02/14 and will rem ain in the house for the procedure. Start: 02-18-2024 End: 02-18-2024 ambulatory 02/18/2024 10:30 AM EDT Procedure Cardiology [address] [place] [address] to be admitted prior on 02/14 and will remain in the house for the procedure. Cardiology Comment on above: to be admitted prior on 02/14 and will rem ain in the house for the procedure. Start: 02-18-2024 End: 02-18-2024 Tcat mitral valve repair initial prosthesis TRANSCATHETER MITRAL VALVE REPAIR PERCUTANEOUS INCLUDE TRANSSEPTAL PUNCTURE WHEN PERFORMED INITIAL PROSTHESIS Mitral valve insufficiency, unspecified etiology 02/18/2024 9:03 AM EDT [facility] & VAS Start: 02-15-2024 Evaluation and management of inpatient 02/15/2024 12:44 PM EDT Hospital Encounter [id number] [address] [place] [address] Isreal Rain MD [address] [facility] [address] [place] [address] to be admitted prior on 02/14 and will remain in the house for the procedure., Mitral Valve Transcatheter Vduk-aj-Lpfs Repair (M-AZAEL) w/ Cowart MitraClip, Procedure on: 02/18/24 at 10:30 am [id number] Comment on above: to be admitted prior on 02/14 and will rem ain in the house for the procedure., Mitral Valve Transcatheter Ibeh-an-Doqe Repair (M-AZAEL) w/ [place] MitraClip, Procedure on: 02/18/24 at 10:30 am Start: 02-15-2024 Evaluation and management of inpatient 02/15/2024 11:03 AM EDT Hospital Encounter [id number] [address] [place] [address] Nicole Coppola MD [address] [place] [address] Isreal Rain MD [address] [facility] [address] [place] [address] to be admitted prior on 02/14 and will remain in the house for the procedure., Mitral Valve Transcatheter Ojgm-ae-Raeb Repair (M-AZAEL) w/ [place] MitraClip, Procedure on: 02/18/24 at 10:30 am [id number] Comment on above: to be admitted prior on 02/14 and will rem ain in the house for the procedure., Mitral Valve Transcatheter Rluj-db-Zbyj Repair (M-AZAEL) w/ [place] MitraClip, Procedure on: 02/18/24 at 10:30 am Start: 02-12-2024 End: 02-12-2024 Patient encounter procedure 02/12/2024 10:05 AM EDT Office Visit Otolaryngology [address] [place] [address] Charu Kincaid, ANAND.VEGETABLE BUNCHER [address] [place] [address] CONSULT TO ENT Otolaryngology Comment on above: CONSULT TO ENT Start: 02-11-2024 End: 02-11-2024 ambulatory 02/11/2024 4:00 PM EDT [facility] Cardiology [address] [place] [address] Paulina Fernandes MD [address] [place] [address] Atherosclerotic heart disease of [place]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) Cardiology Comment on above: Atherosclerotic heart disease of [place]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) Start: 02-05-2024 End: 02-05-2024 Patient encounter procedure 02/05/2024 3:10 PM EDT Office Visit Vascular Medicine [address] [place] [address] LOLI MEYER TO DO, Vascular Medicine Comment on above: LOLI MEYER TO DO, Start: 02-05-2024 End: 02-05-2024 Nursing evaluation of patient and report 02/05/2024 2:00 PM EDT Nurse Visit Cardiology [address] [id number] [place], Research Nurse Card Intervention [address] [id number] [facility] Comment on above: [facility] Start: 02-05-2024 End: 02-05-2024 [facility] J1[facility]4 Dra jazmin German Comment on above: [facility] Start: 01-02-2024 End: 01-02-2024 Clinical Support 01/02/2024 1:30 PM EDT Clinical Support [facility] Cardiac Rehab [address] [place] [address] [facility] Card[facility] Start: 01-01-2024 End: 01-01-2024 Clinical Support 01/01/2024 1:30 PM EDT Clinical Support [facility] Cardiac Rehab [address] [place] [address] [facility] Start: 12-30-2023 End: 12-30-2023 Clinical Support 12/30/2023 1:30 PM EDT Clinical Support [facility] Cardiac Rehab [address] [place] [address] [facility] Start: 12-26-2023 End: 12-26-2023 Clinical Support 12/26/2023 1:30 PM EDT Clinical Support [facility] Cardiac Rehab [address] [place] [address] [facility] Card[facility] Start: 12-25-2023 End: 12-25-2023 Clinical Support 12/25/2023 1:30 PM EDT Clinical Support [facility] Cardiac Rehab [address] [place] [address] [facility] - Cardiac Rehab Start: 10-29-2023 End: 01-28-2024 Comprehensive metabolic 2000 panel - Serum or Plasma COMP METABOLIC PANEL Lab Routine Chronic 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) Expected: 10/29/2023, Expires: 01/28/2024 [facility] Work Phone: Comment on above: Expected: 10/29/2023, Expires: 4 Start: 09-16-2023 Advance Directive Discussion Advance Directive Discussion [facility] Start: 09-16-2023 Behavioral Health Screening Behavioral Health Screening [facility] Start: 09-16-2023 Depression Assessment Depression Assessment [facility] Start: 05-17-2023 Covid-19 Vaccine () Covid-19 Vaccine () [facility] Start: 05-17-2023 Influenza vaccination [facility] Start: 04-01-2023 End: 06-01-2023 Prostate specific Ag [Mass/volume] in Serum or Plasma PSA/PROSTSPECAG DIAG Lab Routine Malignant neoplasm of prostate (HCC) Expected: 04/01/2023 (Approximate), Expires: 06/01/2023 [facility] Work Phone: Comment on above: Expected: 04/01/2023 (Approximate), Expi res: 06/01/2023 Start: 01-15-2023 Hepatitis B surface antibody level LDL CHOLESTEROL [facility] Start: 10-27-2022 End: 12-27-2022 Prostate specific Ag [Mass/volume] in Serum or Plasma PSA/PROSTSPECAG DIAG Lab Routine Malignant neoplasm of prostate (HCC) Expected: 10/27/2022, Expires: 12/27/2022 [facility] Work Phone: Comment on above: Expected: 10/27/2022, Expires: 3 Start: 09-16-2022 ADVANCE DIRECTIVE DISCUSSION ADVANCE DIRECTIVE DISCUSSION [facility] Start: 09-16-2022 DEPRESSION ASSESSMENT DEPRESSION ASSESSMENT [facility] Start: 08-18-2022 Adult BMI Screening Adult BMI Screening [facility] Start: 08-17-2022 Depression Screening Depression Screening [facility] Start: 07-18-2022 Hemoglobin A1c measurement HbA1C [facility] Start: 07-18-2022 Hemoglobin A1c/Hemoglobin.total in Blood HBA1C [facility] Start: 06-06-2022 End: 08-06-2022 Comprehensive metabolic 2000 panel - Serum or Plasma [facility] Work Phone: Comment on above: Expected: 06/06/2022, Expires: 2 Start: 06-06-2022 End: 08-06-2022 Natriuretic peptide.B prohormone N-Terminal [Mass/volume] in Serum or Plasma [facility] Work Phone: Comment on above: Expected: 06/06/2022, Expires: 2 Start: 05-17-2022 Influenza vaccination [facility] Start: 01-15-2022 End: 03-17-2022 Hemoglobin A1c/Hemoglobin.total in Blood [facility] Work Phone: Comment on above: Expected: 01/15/2022, Expires: 2 Start: 01-15-2022 End: 03-17-2022 Insulin [Units/volume] in Serum or Plasma [facility] Work Phone: Comment on above: Expected: 01/15/2022, Expires: 2 Start: 01-15-2022 End: 03-17-2022 IRON + TIBC [facility] Work Phone: Comment on above: Expected: 01/15/2022, Expires: 2 Start: 01-15-2022 End: 03-17-2022 LIPID PANEL BASIC [facility] Work Phone: Comment on above: Expected: 01/15/2022, Expires: 2 Start: 01-15-2022 End: 03-17-2022 T3 UPTAKE [facility] Work Phone: Comment on above: Expected: 01/15/2022, Expires: 2 Start: 01-15-2022 End: 03-17-2022 T4 FREE/FREE THYROX [facility] Work Phone: Comment on above: Expected: 01/15/2022, Expires: 2 Start: 01-15-2022 End: 03-17-2022 T4/FTI/T4U [facility] Work Phone: Comment on above: Expected: 01/15/2022, Expires: 2 Start: 01-15-2022 End: 03-17-2022 Thyrotropin [Units/volume] in Serum or Plasma [facility] Work Phone: Comment on above: Expected: 01/15/2022, Expires: 2 Start: 01-07-2022 End: 03-09-2022 Prostate specific Ag [Mass/volume] in Serum or Plasma PSA/PROSTSPECAG DIAG Lab Routine Malignant neoplasm of prostate (HCC) Expected: 01/07/2022, Expires: 03/09/2022 [facility] Work Phone: Comment on above: Expected: 01/07/2022, Expires: 2 Start: 09-16-2021 ADVANCE DIRECTIVE DISCUSSION ADVANCE DIRECTIVE DISCUSSION [facility] Start: 09-16-2021 DEPRESSION ASSESSMENT DEPRESSION ASSESSMENT [facility] Start: 06-19-2020 Hepatitis B surface antibody level LDL CHOLESTEROL [facility] Start: 2017 RSV Vaccine (1 - 1-dose 75+ series) RSV Vaccine (1 - 1-dose 75+ series) [facility] Start: 2007 Fall Risk Screening Fall Risk Screening [facility] Start: 2007 PNEUMOVAX AGE 65 AND OVER WITH 5YR LOOKBACK (#1) PNEUMOVAX AGE 65 AND OVER WITH 5YR LOOKBACK (#1) [facility] Start: 2002 RSV Vaccine (1 - 1-dose 60+ series) RSV Vaccine (1 - 1-dose 60+ series) [facility] Start: 02-20-1992 SHINGRIX VACCINE (1 of 2) SHINGRIX VACCINE (1 of 2) [facility] Start: 1961 Administration of varicella zoster vaccine Zoster (Shingles) Vaccine (1 of 2) [facility] Start: 1961 Pneumococcal Vaccine: 50+ (1 of 2 - PCV) Pneumococcal Vaccine: 50+ (1 of 2 - PCV) [facility] Start: 1961 SHINGRIX VACCINE (1 of 2) SHINGRIX VACCINE (1 of 2) [facility] Start: 02-20-1960 ANNUAL PCP TEAM CHRONIC DISEASE VISIT ANNUAL PCP TEAM CHRONIC DISEASE VISIT [facility] Start: 02-20-1960 Anxiety Screening Anxiety Screening [facility] Start: 02-20-1960 Depression Screening Depression Screening [facility] Start: 1954 Adult depression screening assessment DEPRESSION SCREENING [facility] Start: 1954 Tobacco Screening Tobacco Screening [facility] Start: 02-20-1952 3 comp foot exam completed DIABETIC FOOT EXAM [facility] Start: 02-20-1952 Diabetic foot examination Diabetic Foot Exam [facility] Start: 02-20-1952 Glaucoma screening Dilated Retinal Exam [facility] Start: 02-20-1952 Hepatitis B screening URINE ALBUMIN:CREATININE RATIO [facility] Start: 02-20-1952 Hepatitis C antibody, confirmatory test DILATED RETINAL EXAM [facility] Start: 02-20-1948 Pneumococcal Vaccine: 65+ (1 - PCV) Pneumococcal Vaccine: 65+ (1 - PCV) [facility] Start: 02-20-1948 Pneumococcal Vaccine: 65+ (1 of 2 - PCV) Pneumococcal Vaccine: 65+ (1 of 2 - PCV) [facility] Start: 02-20-1948 PNEUMOCOCCAL: 65+ (1 - PCV) PNEUMOCOCCAL: 65+ (1 - PCV) [facility] Start: 1947 COVID-19 VACCINE (#1) COVID-19 VACCINE (#1) [facility] Start: 1947 COVID-19 VACCINE (1) COVID-19 VACCINE (1) [facility] Start: 1942 COVID-19 VACCINE (#1) COVID-19 VACCINE (#1) [facility] Start: 1942 Medicare Annual Wellness Visit Medicare Annual Wellness Visit [facility] 7 REMOVAL OF RESIDUA L TOOTH ROOTS (CUTTING PROCEDURE) 7 REMOVAL OF RESIDUAL TOOTH ROOTS (CUTTING PROCEDURE) Dental Routine 1 Occurrences starting 02/17/2024 [facility] Work Phone: Comment on above: 1 Occurrences starting 02/17/2024 CARDIAC IMPLANTABLE DEVICE CHECK CARDIAC IMPLANTABLE DEVICE CHECK PACEART Routine Pacemaker reprogramming/check 08/19/2024 10:11 AM EST [facility] CARDIOPULMONARY REHABILITATION CARDIOPULMONARY REHABILITATION Cardiac Services Ordered: 12/19/2023 [facility] Comment on above: Ordered: 12/19/2023 Cardiopulmonary rehabilitation Cardiopulmonary rehabilitation Cardiac Services Ordered: 06/24/2024 [facility] Comment on above: Ordered: 06/24/2024 Cardiopulmonary rehabilitation Cardiopulmonary rehabilitation Cardiac Services Ordered: 06/29/2024 [facility] Comment on above: Ordered: 06/29/2024 Cardiopulmonary rehabilitation Cardiopulmonary rehabilitation Cardiac Services Ordered: 07/01/2024 [facility] Comment on above: Ordered: 07/01/2024 Cardiopulmonary rehabilitation Cardiopulmonary rehabilitation Cardiac Services Ordered: 07/02/2024 [facility] Comment on above: Ordered: 07/02/2024 Cardiopulmonary rehabilitation Cardiopulmonary rehabilitation Cardiac Services Ordered: 07/08/2024 [facility] Comment on above: Ordered: 07/08/2024 End: 06-06-2023 ECG COMPLETE ECG COMPLETE ECG Routine Chronic systolic heart failure (HCC) 1 Occurrences starting 06/06/2022 until 06/06/2023 [facility] Work Phone: Comment on above: 1 Occurrences starting 06/06/2022 until 06/06/2023 End: 10-30-2024 ECG COMPLETE ECG COMPLETE ECG Routine Chronic 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) 1 Occurrences starting 10/30/2023 until 10/30/2024 [facility] Work Phone: Comment on above: 1 Occurrences starting 10/30/2023 until 10/30/2024 End: 11-25-2024 ECG COMPLETE ECG COMPLETE ECG Routine Atherosclerosis of [place] coronary artery, unspecified whether angina present, unspecified whether [place] or transplanted heart 1 Occurrences starting 11/26/2023 until 11/25/2024 [facility] Work Phone: Comment on above: 1 Occurrences starting 11/26/2023 until 11/25/2024 End: 12-22-2024 ECG COMPLETE ECG COMPLETE ECG Routine HFrEF (heart failure with reduced ejection fraction) ([facility]) Mitral valve insufficiency, unspecified etiology 1 Occurrences starting 12/23/2023 until 12/22/2024 [facility] Work Phone: Comment on above: 1 Occurrences starting 12/23/2023 until 12/22/2024 ECG COMPLETE ECG COMPLETE ECG Routine Severe mitral regurgitation Cardiomyopathy, ischemic S/P CABG (coronary artery bypass graft) 1 Occurrences starting 12/26/2023 [facility] Work Phone: Comment on above: 1 Occurrences starting 12/26/2023 End: 2025 ECG COMPLETE ECG COMPLETE ECG Routine Severe mitral regurgitation Status post implantation of mitral valve leaflet clip 1 Occurrences starting 02/20/2024 until 2025 [facility] Comment on above: 1 Occurrences starting 02/20/2024 until 2025 End: 03-30-2025 ECG COMPLETE ECG COMPLETE ECG Routine Cardiomyopathy, ischemic S/P mitral valve clip implantation 1 Occurrences starting 03/30/2024 until 03/30/2025 [facility] Comment on above: 1 Occurrences starting 03/30/2024 until 03/30/2025 End: 07-27-2025 ECG COMPLETE ECG COMPLETE ECG Routine Frequent PVCs 1 Occurrences starting 07/27/2024 until 07/27/2025 [facility] Work Phone: Comment on above: 1 Occurrences starting 07/27/2024 until 07/27/2025 End: 06-06-2023 Echocardiography ECHO Cardiology Routine Chronic systolic heart failure (HCC) 1 Occurrences starting 06/06/2022 until 06/06/2023 [facility] Work Phone: Comment on above: 1 Occurrences starting 06/06/2022 until 06/06/2023 End: 10-30-2024 Echocardiography ECHO Cardiology Routine Chronic 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) 1 Occurrences starting 10/30/2023 until 10/30/2024 [facility] Work Phone: Comment on above: 1 Occurrences starting 10/30/2023 until 10/30/2024 End: 11-25-2024 Echocardiography ECHO Cardiology Routine Atherosclerosis of [place] coronary artery, unspecified whether angina present, unspecified whether [place] or transplanted heart 1 Occurrences starting 11/26/2023 until 11/25/2024 [facility] Work Phone: Comment on above: 1 Occurrences starting 11/26/2023 until 11/25/2024 End: 12-22-2024 Echocardiography ECHO Cardiology Routine HFrEF (heart failure with reduced ejection fraction) (HCC) Mitral valve insufficiency, unspecified etiology 1 Occurrences starting 12/23/2023 until 12/22/2024 [facility] Work Phone: Comment on above: 1 Occurrences starting 12/23/2023 until 12/22/2024 End: 12-25-2024 Echocardiography ECHO Cardiology Routine Severe mitral regurgitation Cardiomyopathy, ischemic S/P CABG (coronary artery bypass graft) 1 Occurrences starting 12/26/2023 until 12/25/2024 [facility] Work Phone: Comment on above: 1 Occurrences starting 12/26/2023 until 12/25/2024 End: 2025 Echocardiography ECHO Cardiology Routine Severe mitral regurgitation Status post implantation of mitral valve leaflet clip 1 Occurrences starting 02/20/2024 until 2025 [facility] Work Phone: Comment on above: 1 Occurrences starting 02/20/2024 until 2025 End: 03-30-2025 Echocardiography ECHO Cardiology Routine Cardiomyopathy, ischemic S/P mitral valve clip implantation 1 Occurrences starting 03/30/2024 until 03/30/2025 [facility] Comment on above: 1 Occurrences starting 03/30/2024 until 03/30/2025 End: 07-27-2025 HOLTER MONITOR 48 HOUR HOLTER MONITOR 48 HOUR ECG Routine PVC (premature ventricular contraction) 1 Occurrences starting 07/27/2024 until 07/27/2025 [facility] Work Phone: Comment on above: 1 Occurrences starting 07/27/2024 until 07/27/2025 End: 08-19-2025 HOLTER MONITOR 48 HOUR HOLTER MONITOR 48 HOUR ECG Routine Frequent PVCs 1 Occurrences starting 08/19/2024 until 08/19/2025 [facility] Work Phone: Comment on above: 1 Occurrences starting 08/19/2024 until 08/19/2025 End: 09-18-2025 LUNG DIFFUSION CAPACITY (DLCO) LUNG DIFFUSION CAPACITY (DLCO) PFT Routine Frequent PVCs 1 Occurrences starting 08/19/2024 until 09/18/2025 [facility] Comment on above: 1 Occurrences starting 08/19/2024 until 09/18/2025 End: 10-06-2023 NM PET/CT CARDIAC PERF REST/STRESS NM PET/CT CARDIAC PERF REST/STRESS Radiology Routine Chronic systolic heart failure (HCC) 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 1 Occurrences starting 09/06/2022 until 10/06/2023 [facility] Work Phone: Comment on above: 1 Occurrences starting 09/06/2022 until 10/06/2023 End: 10-06-2023 NM PET/CT CARDIAC VIABILITY NM PET/CT CARDIAC VIABILITY Radiology Routine Chronic systolic heart failure (HCC) 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 1 Occurrences starting 09/06/2022 until 10/06/2023 [facility] Work Phone: Comment on above: 1 Occurrences starting 09/06/2022 until 10/06/2023 RED BLOOD CELLS, ADULT RED BLOOD CELLS, ADULT Blood Bank Routine Atherosclerotic heart disease of [place]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) Ordered: 02/17/2024 [facility] Work Phone: Comment on above: Ordered: 02/17/2024 End: 09-18-2025 SPIROMETRY BASELINE ONLY SPIROMETRY BASELINE ONLY PFT Routine Frequent PVCs 1 Occurrences starting 08/19/2024 until 09/18/2025 [facility] Comment on above: 1 Occurrences starting 08/19/2024 until 09/18/2025 End: 04-17-2025 US Carotid arteries - bilateral US CAROTID BILATERAL Radiology Routine Carotid stenosis, 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, left 1 Occurrences starting 03/18/2024 until 04/17/2025 [facility] Work Phone: Comment on above: 1 Occurrences starting 03/18/2024 until 04/17/2025 End: 09-17-2025 US Carotid arteries - bilateral US CAROTID BILATERAL Radiology Routine Carotid stenosis, 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, left 1 Occurrences starting 08/18/2024 until 09/17/2025 [facility] Work Phone: Comment on above: 1 Occurrences starting 08/18/2024 until 09/17/2025 End: 08-03-2023 US CAROTID ARTERIES [facility] US CAROTID ARTERIES [facility] Vascular Lab Routine Bilateral carotid artery stenosis 1 Occurrences starting 08/03/2022 until 08/03/2023 [facility] Work Phone: Comment on above: 1 Occurrences starting 08/03/2022 until 08/03/2023 [facility] Immunizations Immunization Date Immunization Notes Care Provider [facility] 06-13-2020 diphtheria, tetanus toxoids and pertussis vaccine ARACELI Andrade MD Work Phone: [facility] Payers Date Payer Category Payer Commercial Indemnity [employer] [id number] 2018 Unknown MMO MMO MEDICARE SUPPLEMENT [id number] 2018-Present [phone] [address] [place] [address] Indemnity [id number] 2018 Unknown [id number] 2007 Medicare MEDICARE MEDICAR E A AND B [id number] 2007-Present [phone] [place] [address] Medicare [id number] 2007 Medicare [id number] 1959 Medicare [id number] 1959 Self-pay [id number] 1959 Unknown [id number] 1942 Unknown [id number] 2.16.840.1.346442.3.579.2.6 47 1942 Unknown [id number] 2.16.840.1.643123.3.579.2.5 93 1942 Unknown [id number] 2.16.840.1.909606.3.579.2.5 93 1942 Unknown [id number] 2.16.840.1.825332.3.579.2.5 93 1942 Unknown [id number] 2.16.840.1.309495.3.579.2.5 93 1942 Unknown [id number] 2.16.840.1.602370.3.579.2.5 93 1942 Unknown [id number] 2.16.840.1.562850.3.579.2.5 93 1942 Unknown [id number] 2.16.840.1.955780.3.579.2.5 93 1942 Unknown [id number] 2.16.840.1.772920.3.579.2.5 93 1942 Unknown [id number] 2.16.840.1.259848.3.579.2.5 93 1942 Unknown [id number] 2.16.840.1.278391.3.579.2.5 93 1942 Unknown [id number] 2.16.840.1.169946.3.579.2.5 93 1942 Unknown [id number] 2.16.840.1.011971.3.579.2.5 93 1942 Unknown [id number] 2.16.840.1.048707.3.579.2.5 93 1942 Unknown [id number] 2.16.840.1.100856.3.579.2.5 93 1942 Unknown [id number] 2.16.840.1.450922.3.579.2.5 93 1942 Unknown [id number] 2.16.840.1.512352.3.579.2.5 93 1942 Unknown [id number] 2.16.840.1.341104.3.579.2.1 286 1942 Unknown [id number] 2.16.840.1.035198.3.579.2.1 286 1942 Unknown [id number] 2.16.840.1.411444.3.579.2.1 286 1942 Unknown [id number] 2.16.840.1.742925.3.579.2.1 286 1942 Unknown [id number] 2.16.840.1.749944.3.579.2.1 286 1942 Unknown [id number] 2.16.840.1.200702.3.579.2.1 286 1942 Unknown [id number] 2.16.840.1.221521.3.579.2.1 286 1942 Unknown [id number] 2.16.840.1.695619.3.579.2.1 286 1942 Unknown [id number] 2.16.840.1.536313.3.579.2.1 286 1942 Unknown [id number] 2.16.840.1.116568.3.579.2.1 286 1942 Unknown [id number] 2.16.840.1.425275.3.579.2.1 286 1942 Unknown [id number] 2.16.840.1.349544.3.579.2.1 286 1942 Unknown [id number] 2.16.840.1.113538.3.579.2.1 286 1942 Unknown [id number] 2.16840.1.540978.3.579.2.1 286 1942 Unknown [id number] 2.16840.1.120810.3.579.2.1 286 1942 Unknown [id number] 2.16840.1.017266.3.579.2.1 286 1942 Unknown [id number] 2.16.840.1.757560.3.579.2.1 286 1942 Unknown [id number] 2.16.840.1.620885.3.579.2.1 286 1942 Unknown [id number] 2.16.840.1.368048.3.579.2.1 286 1942 Unknown [id number] 2.16.840.1.024757.3.579.2.1 286 1942 Unknown [id number] 2.16.840.1.993458.3.579.2.1 286 1942 Unknown [id number] 2.16.840.1.850776.3.579.2.1 286 1942 Unknown [id number] 2.16.840.1.531462.3.579.2.1 286 1942 Unknown [id number] 2.16.840.1.866661.3.579.2.1 286 1942 Unknown [id number] 2.16.840.1.346807.3.579.2.1 286 1942 Unknown [id number] 2.16.840.1.328524.3.579.2.1 286 1942 Unknown [id number] 2.16.840.1.228565.3.579.2.1 286 1942 Unknown [id number] 2.16.840.1.635502.3.579.2.1 286 1942 Unknown [id number] 2.16.840.1.517965.3.579.2.1 286 1942 Unknown [id number] 2.16.840.1.622966.3.579.2.1 286 1942 Unknown [id number] 2.16.840.1.177398.3.579.2.1 286 1942 Unknown [id number] 2.16.840.1.446912.3.579.2.1 286 1942 Unknown [id number] 2.16.840.1.932442.3.579.2.1 286 1942 Unknown [id number] 2.16.840.1.859239.3.579.2.1 286 1942 Unknown [id number] 2.16.840.1.913426.3.579.2.1 286 1942 Unknown [id number] 2.16.840.1.603214.3.579.2.1 286 1942 Unknown [id number] 2.16.840.1.612467.3.579.2.1 286 1942 Unknown [id number] 2.16.840.1.107504.3.579.2.1 286 1942 Unknown [id number] 2.16.840.1.861082.3.579.2.1 286 1942 Unknown [id number] 2.16.840.1.197818.3.579.2.1 286 1942 Unknown [id number] 2.16.840.1.483135.3.579.2.1 286 1942 Unknown [id number] 2.16.840.1.406074.3.579.2.1 286 1942 Unknown [id number] 2.16.840.1.208976.3.579.2.1 286 1942 Unknown [id number] 2.16.840.1.970483.3.579.2.1 286 1942 Unknown [id number] 2.16.840.1.522184.3.579.2.1 286 1942 Unknown [id number] 2.16.840.1.704897.3.579.2.1 286 1942 Unknown [id number] 2.16.840.1.803837.3.579.2.1 286 1942 Unknown [id number] 2.16.840.1.817010.3.579.2.1 286 1942 Unknown [id number] 2.16.840.1.574765.3.579.2.1 286 1942 Unknown [id number] 2.16.840.1.023320.3.579.2.1 286 1942 Unknown [id number] 2.16.840.1.445762.3.579.2.1 286 1942 Unknown [id number] 2.16.840.1.074472.3.579.2.1 286 1942 Unknown [id number] 2.16.840.1.898199.3.579.2.1 286 1942 Unknown [id number] 2.16.840.1.859338.3.579.2.1 286 1942 Unknown [id number] 2.16.840.1.697219.3.579.2.1 286 1942 Unknown [id number] 2.16.840.1.653134.3.579.2.1 286 1942 Unknown [id number] 2.16.840.1.410330.3.579.2.1 286 1942 Unknown [id number] 2.16.840.1.692993.3.579.2.1 286 1942 Unknown [id number] 2.16.840.1.235961.3.579.2.1 286 1942 Unknown [id number] 2.16.840.1.174262.3.579.2.1 286 1942 Unknown [id number] 2.16.840.1.923913.3.579.2.1 286 1942 Unknown [id number] 2.16.840.1.718460.3.579.2.1 286 1942 Unknown [id number] 2.16.840.1.582463.3.579.2.1 286 1942 Unknown [id number] 2.16.840.1.680240.3.579.2.1 286 1942 Unknown [id number] 2.16.840.1.391475.3.579.2.1 286 1942 Unknown [id number] 2.16.840.1.013175.3.579.2.1 286 Social History Date Type Detail Facility Start: 04-28-2012 End: 08-19-2024 Tobacco smoking status NJIS Ex-smoker [facility] Work Phone: Start: 04-28-1972 End: 04-28-1982 History of tobacco use Current smoker [facility] Work Phone: Start: 04-28-1972 End: 04-28-1982 History of tobacco use Cigarette Smoker [facility] Work Phone: End: 04-28-1982 History of tobacco use Pipe Smoker [facility] Work Phone: Start: 04-28-2012 End: 02-05-2024 Cigarettes smoked current (pack per day) - Reported 1 [facility] Start: 04-28-2012 End: 08-19-2024 Tobacco use and exposure Smokeless tobacco non-user [facility] Work Phone: Start: 12-04-2021 End: 05-11-2024 Alcohol intake Current drinker of alcohol (finding) [facility] Start: 04-15-2020 History SDOH Alcohol Frequency 2 [facility] Start: 04-15-2020 History SDOH Alcohol Std Drinks 1 [facility] Start: 03-13-2019 History SDOH Alcohol Comment occassional [facility] Start: 1940 Sex Assigned At Male [facility] Start: 08-06-2021 End: 06-06-2022 Exposure to SARS-CoV-2 (event) Not sure [facility] Start: 10-25-2022 Alcohol Comment rarely [facility] Start: 04-15-2020 End: 02-05-2024 Alcohol Use Disorder Identification Test - Consumption [AUDIT-C] [facility] How often to you hav e a drink containing alcohol? Monthly or less [facility] How many standard dr inks containing alcohol do you have on a typical day? 1 or 2 [facility] Frequency of Binge Drinking Not on file [facility] Start: 02-22-2019 Gender identity Identifies as male gender (finding) [facility] Start: 02-22-2019 Sexual orientation Heterosexual (fin ding) [facility] Do you belong to any clubs or organizations such as scientology groups, unions, fraternal or athletic groups, or school groups? No [facility] Are you now , , , , never or living with a partner? [facility] How often do you hav e 6 or more drinks on 1 occasion? Never [facility] Do you feel stress - tense, restless, nervous, or anxious, or unable to sleep at night because your mind is troubled all the time - these days [OSQ] Not at all [facility] Start: 08-17-2021 Alcohol Comment 1 beer/month [facility] Start: 1940 Sex Assigned At Not on file [facility] (I/We) worried wheth er (my/our) food would run out before (I/we) got money to buy more. Never true [facility] Start: 04-19-2015 Sex Male (finding) [facility] In the past 12 month s, was there a time when you were not able to pay the mortgage or rent on time? Yes [facility] Start: 08-19-2024 Alcoholic beverage intake Ex-drinker (finding) [facility] NEGATED: Highlighted rowStart: NINF History of tobacco use Passive smoker [facility] Medical Equipment Procedure Code Equipment Code Equipment Origin al Text Equipment Identifier Dates [place] Cv 6x1in Thk1.65mm Ptfe - [id number]_[facility] Start: 05-01-2012 Comment on above: Description: used fo r plrdgetts. Patch Cv 8x.8cm Tapr Vsgrd Bov - [id number]_[facility] Start: 07-01-2012 Comment on above: Description: Right C arotid [id number]_[facility] Start: 03-24-2019 [id number]_[facility] Start : 03-16-2019 [id number] Rossy vity Mri [id number]_[facility] Start: 03-24-2019 [id number] Reli ance 4-Front [id number]_[facility] Start: 03-24-2019 [id number] Harper clip Xt Delivery System - [id number]_[facility] Start: 02-18-2024 Sys Kit 1 Sgc & Up To 3 Clips - [id number]_[facility] Start: 02-18-2024 System Vascade 6 /7fr Collagen Compression Bioabsorbable Vascular - [id number]_[facility] Start: 03-04-2024 Stent Precise Pr o Rx 8mm Nitinol 40mm 135cm Vascular Self Expand Micromesh - [id number] Start: 03-04-2024 Goals Date Patient Goal Desired Activity /State Personal health goal Comment on above: Formatting of this n ote might be different from the original. Evaluation of progress towards goal: To return home safely with spouse and attend outpatient therapy. Personal health goal Clinical Notes 05-01-2012 to 09-11-2024 Telephone Encounter - Ernestina Alvarez RN - 09/11/2024 1:21 PM ESTTelephone Encounter - Ernestina Alvarez RN - 09/11/2024 1:21 PM Geneva Costello Tech - 08/19/2024 3:06 PM EST Note Date & Type Note Facility 09-11-2024 Telephone encounter Note Spoke with patient: He has been taking torsemide 20 mg BID with additional tablet as needed. He will be take 40 mg for his afternoon dose today. Dr. Nirmal reid with taking torsemide 40 mg BID. Follow up with lab work mid last week. Ernestina Alvarez RN September 11, 2024 1:22 PM [facility] 09-11-2024 Miscellaneous Notes Spoke with patient: He has been taking torsemide 20 mg BID with additional tablet as needed. He will be take 40 mg for his afternoon dose today. Dr. Nirmal reid with taking torsemide 40 mg BID. Follow up with lab work mid last week. Ernestina Alvarez RN September 11, 2024 1:22 PM Called the patient who stated he knows he has swelling to his LE's and his weight is up about 3-4 lbs but is uncertain if the weight gain is a combination of increased dietary calories and/or fluid retention. He is taking torsemide 40 mg bid as prescribed. He has stopped the spironolactone due to the increased renal dysfunction noted on 08/31 and is about to go to local [facility] lab and have updated lab work completed today. Pt is asking if he may need IV diuretics? Marce Springer RN September 10, 2024 2:08 PM September 10, 2024 Name: José Miguel Antonio JrTitus Patient Contact Number: [phone] (home) [phone] (cell) Date of last office visit: 08/19/2024 Reason For Call: Pt called stating that he is gaining water on his legs. The medication that he on doesn't seems to be working he is currently using Torsemise 20 mg. And he want to know if theres any other option. Physician: Paulina Fernandes MD Patient was informed that non-urgent calls may be returned within the next three business days. Yes Martha Maya documented in this encounter [facility] 09-10-2024 Telephone encounter Note Called the patient who stated he knows he has swelling to his LE's and his weight is up about 3-4 lbs but is uncertain if the weight gain is a combination of increased dietary calories and/or fluid retention. He is taking torsemide 40 mg bid as prescribed. He has stopped the spironolactone due to the increased renal dysfunction noted on 08/31 and is about to go to local [facility] lab and have updated lab work completed today. Pt is asking if he may need IV diuretics? Marce Springer RN September 10, 2024 2:08 PM [facility] 09-10-2024 Telephone encounter Note September 10, 2024 Name: José Miguel Juarez Paco Rose Patient Contact Number: [phone] (home) [phone] (cell) Date of last office visit: 08/19/2024 Reason For Call: Pt called stating that he is gaining water on his legs. The medication that he on doesn't seems to be working he is currently using Torsemise 20 mg. And he want to know if theres any other option. Physician: Paulina Fernandes MD Patient was informed that non-urgent calls may be returned within the next three business days. Yes Martha Maya [facility] 09-07-2024 Telephone encounter Note Spoke to patient's daughter. Let her know we would update Dr Wei for next steps. She notes that her father said his feet were swollen, red and leaking . Advised to update Dr Fernandes and to have PCP look at feet. Winsome Ivory RN [facility] 09-07-2024 Miscellaneous Notes Spoke to patient's daughter. Let her know we would update Dr Wei for next steps. She notes that her father said his feet were swollen, red and leaking . Advised to update Dr Fernandes and to have PCP look at feet. Winsome Ivory RN September 07, 2024 Patient Contact Number: [phone] (home) [phone] (cell) Patient last seen within the last year: Yes Reason For Call: Follow-up Questions: Patient's daughter Charu called stated the patient started amiodarone on 08/31 and he has broken out severely from the medication rash started on 09/03. They contacted the nurse industrial relations counselor and was advised to stop the medication and is feeling better. Please contact Charu [phone] Thank you Adm Galilea Flux Tube Attendant documented in this encounter [facility] 09-07-2024 Telephone encounter Note September 07, 2024 Patient Contact Number: [phone] (home) [phone] (cell) Patient last seen within the last year: Yes Reason For Call: Follow-up Questions: Patient's daughter Charu called stated the patient started amiodarone on 08/31 and he has broken out severely from the medication rash started on 09/03. They contacted the nurse industrial relations counselor and was advised to stop the medication and is feeling better. Please contact Charu [phone] Thank you Adm Galilea Flux Tube Attendant [facility] 09-03-2024 Telephone encounter Note Contacted the patient. He reports at the time of the event he was on a call that made him upset. He denies any symptoms during the event. Ema Rankin RN [facility] 09-03-2024 Miscellaneous Notes Contacted the patient. He reports at the time of the event he was on a call that made him upset. He denies any symptoms during the event. Ema Rankin RN September 03, 2024 Patient Contact Number: [phone] (home) [phone] (cell) Patient last seen within the last year: Yes Reason For Call: Follow-up Questions: Patient called stated he recalls what he was doing at the time he was agitated on a phone call. Thank you Adm Galilea Flux Tube Attendant Contacted the patient. He feels ok. He was unaware of the episode on 09/02. Will review with Dr. Wei. Ema Rankin RN ----- Message from Zahra Salgado RN sent at 09/03/2024 8:25 AM EST ----- Regarding: pt update Dr. Wei and Ema LOPEZ, please see remote report below for Mr. Antonio. With the amio he is now is SR, but did have another ATP x1 converted VT 09/02. Thanks Zahra Dual chamber ICD Alerts or Events: The recent sustained AFL ended about 08/31/24 (recently started on amiodarone). One new ATPx1 converted VT on 09/02 (totally two this month). Sent update to Dr. Wei Battery: Battery is at 100%, 8.50 yrs Sensing, impedance and thresholds appropriate Programmed parameters reviewed Presenting rhythm is now SR w/ PVCs at time on transmission today 09/03/24. 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 Thank you Adm Galilea Flux Tube Attendant [facility] 09-03-2024 Telephone encounter Note Contacted the patient. He feels ok. He was unaware of the episode on 09/02. Will review with Dr. Wei. Ema Rankin RN [facility] 09-03-2024 Telephone encounter Note ----- Message from Zahra Salgado RN sent at 09/03/2024 8:25 AM EST ----- Regarding: pt update Dr. Wei and Ema LOPEZ, please see remote report below for Mr. Antonio. With the amio he is now is SR, but did have another ATP x1 converted VT 09/02. Thanks Zahra Dual chamber ICD Alerts or Events: The recent sustained AFL ended about 08/31/24 (recently started on amiodarone). One new ATPx1 converted VT on 09/02 (totally two this month). Sent update to Dr. Wei Battery: Battery is at 100%, 8.50 yrs Sensing, impedance and thresholds appropriate Programmed parameters reviewed Presenting rhythm is now SR w/ PVCs at time on transmission today 09/03/24. 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 The patient should start amiodarone 200 mg BIDx6 weeks then decrease to 200 mg daily. He should call the office with an update in two weeks. Contacted the patient. Reviewed recommendations. He requested his daughter be called. Called Charu. Reviewed recommendations with her. She will have patient get lung function tests. Explained to the patient that amiodarone is a high risk medication. Discussed possible side effects. Discussed surveillance testing which included labs, chest x-ray and pulmonary function. Ema Rankin RN [facility] 08-28-2024 Telephone encounter Note ----- Message from Lisa Whaley RN sent at 08/27/2024 9:12 AM [facility] ----- Regarding: Ongoing AFL Dr. Wei, Recent remote transmission shows this patient has been in ongoing AFL for ~5 days (since 08/22/24). Patient states he feels well and is taking all prescribed medications including Eliquis. Full report available in murj for you to review. Thanks, Lisa [facility] 08-28-2024 Miscellaneous Notes Date: August 28, 2024 Time: 5:37 PM The following orders/tests have been written down, read back and confirmed as ordered by Nj Wei MD . 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 The patient should start amiodarone 200 mg BIDx6 weeks then decrease to 200 mg daily. He should call the office with an update in two weeks. Contacted the patient. Reviewed recommendations. He requested his daughter be called. Called Charu. Reviewed recommendations with her. She will have patient get lung function tests. Explained to the patient that amiodarone is a high risk medication. Discussed possible side effects. Discussed surveillance testing which included labs, chest x-ray and pulmonary function. Ema Rankin RN ----- Message from Lisa Whaley RN sent at 08/27/2024 9:12 AM EST ----- Regarding: Ongoing AFL Dr. Wei, Recent remote transmission shows this patient has been in ongoing AFL for ~5 days (since 08/22/24). Patient states he feels well and is taking all prescribed medications including Eliquis. Full report available in murj for you to review. Lisa Morrison RN [facility] documented in this encounter [facility] 08-19-2024 Note [facility] 08-19-2024 History of Presen t illness Narrative HOLTER MONITOR APPLICATION Patient Name: José Miguel Antonio Jr. Clinic Number: [id number] Chest is cleansed with alcohol Skin prep applied Electrodes place on chest and stress loops secured with tape Fresh battery inserted in monitor Holter monitor secured to patient with waist or shoulder straps Patient instructed 1.) Diary documentation 2.) Usage of event button 3.) Maintenance and care of monitor 4.) Safety issues with monitor 5.) Return unit in 24 hours or 48 hours 6.) Call with problems [phone] Patient expresses good verbal understanding of instructions Jose Khan documented in this encounter [facility] 08-19-2024 Instructions Carmela Fernandes MD - 08/19/2024 2:08 PM EST -Blood work today -will consider spironolactone 12.5 mg daily pending blood work -You have about 5 extra pounds on you -will add you on 10/05/2024 as in-person visit -48hr holter documented in this encounter [facility] 08-19-2024 Note [facility] 08-19-2024 History of Presen t illness Narrative Images from the original note were not included. [facility] [place] [facility] SECTION OF HEART FAILURE and CARDIAC TRANSPLANT MEDICINE OUTPATIENT VISIT DATE August 19, 2024 OUTPATIENT VISIT TYPE Established Patient PRIMARY CARE PHYSICIAN: Samm Thompson [address] [place] [address] CHIEF COMPLAINT: HFrEF NURSING INTAKE (Patient s concerns and/or recent hospitalizations/ER visits): HF Nursing Assessment: Interim Hospitalizations and/or ER visits:07/21/2024 Acute decompensated HF Chest Pain: no Skipping or irregular heartbeats: no Shortness of breath at rest: no Shortness of breath with activity: yes Cough: no Waking up in the middle of the night gasping for air: no Lightheadedness or dizziness: no Feeling like you are going to pass out: no Actually passing out: no Poor energy level: yes Unintentional weight gain: no Unintentional weight loss: no Swelling in your legs,feet, abdomen:yes, calf Filling up quickly when you eat:no, poor appetite HISTORY OF PRESENT ILLNESS: More fatigue recently some leg swelling. 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 ([facility]) 09/03/2022 Dyslipidemia Gastrointestinal hemorrhage 05/11/2024 GERD (gastroesophageal reflux disease) Heart failure, acute systolic ([facility]) Hypertension Hypothyroid Myocardial infarct, old Occlusion and stenosis of carotid artery without mention of cerebral infarction Prostate cancer ([facility]) 2020 PVC (premature ventricular contraction) PVD (peripheral vascular disease) ([facility]) 11/17/2012 Stroke (cerebrum) ([facility]) 09/03/2022 Systolic heart failure ([facility]) Thyroid disorder 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 kidney disease, unspecified CKD stage, 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 HEART CATHETERIZATION ICD (ICD) SOCIAL HISTORY Social History Tobacco Use Smoking status: Former Current packs/day: 0.00 Average packs/day: 1 pack/day for 10.0 years (10.0 ttl pk-yrs) Types: Cigarettes, Pipe Start date: 04/28/1972 Quit date: 04/28/1982 Years since quittin.3 Passive exposure: Never Smokeless tobacco: Never Vaping Use Vaping status: Never Used Substance Use Topics Alcohol use: Not Currently Comment: rarely Drug use: Never FAMILY HISTORY Problem Relation Age of Onset other (atrial fibrillation) Mother other (CHF) Mother other (Other) Mother at age 96 Coronary Artery Disease Father Heart Attack Father fatal [place] at age 77 Ischemic Heart Disease Brother CABGx6 first at age 72 No Known Problems Maternal Grandmother No Known Problems Maternal Grandfather No Known Problems Paternal Grandmother No Known Problems Paternal Grandfather No Known Problems Daughter No Known Problems Daughter No Known Problems Daughter other (Other) Other paternal cousin at age 50 of [place] ALLERGIES: ALLERGIES Allergen Reactions Latex Rash Adhesive Tape (Keyanna* Rash CURRENT MEDICATIONS: apixaban (ELIQUIS) 5 mg tab(s) Take 1 tablet by mouth two times a day. cetirizine (ZYRTEC) 10 mg tablet Take 1 tablet by mouth once daily as needed. torsemide (DEMADEX) 20 mg tablet Take 2 tablets by mouth two times a day. coenzyme Q10 (CO Q-10) 100 mg cap capsule Take 100 mg by mouth once daily. NUTRITION ASSOCIATE THYROID 60 mg tablet Take 1 tablet by mouth once daily. Give 1 tablet by mouth every 24 hours for give with 15mg =75mg total thyroid (NUTRITION ASSOCIATE THYROID) 15 mg tablet Take 1 tablet by mouth once daily. Give 1 tablet by mouth every 24 hours for give with 60mg=75mg total ezetimibe (ZETIA) 10 mg tablet Take 1 tablet by mouth once daily. dapagliflozin propanediol (FARXIGA) 10 mg tablet Take 1 tablet by mouth daily with breakfast. atorvastatin (LIPITOR) 40 mg tablet Take 1 tablet by mouth daily at bedtime. metoprolol succinate ER (TOPROL XL) 25 mg 24 hr tablet Take 1 tablet by mouth once daily. REVIEW OF SYSTEMS: CONSTITUTION: Negative for: Fever, Night sweats and Recent weight change HEENT: Negative for: Hearing loss RESPIRATORY: Negative for: Cough and Difficulty breathing GASTROINTESTINAL: Positive for: Early satiety Negative for: Melena, Nausea, Diarrhea and Abdominal distention MUSCULOSKELETAL: Negative for: Arthralgias and Myalgias NEUROLOGICAL: Negative for: Headaches and Dizziness SKIN: Negative for: Rash EYES: Negative for: Visual disturbance CARDIOVASCULAR: Negative for: Chest pain, Leg swelling, Arrhythmia and Pre-syncope GENITOURINARY: Negative for: Difficulty urinating PATIENT ENTERED DATA: 01/09/2024 03/31/2024 06/01/2024 KCCQ-12 Scores Physical Limitation Score 100 (Class I Heart Failure ) Incomplete 16.67 (Class IIIb / IV Heart Failure ) Symptom Frequency Score 75 (Class II Heart Failure ) Incomplete 62.5 (Class II Heart Failure ) Quality of Life Score 25 (Poor to Fair Quality of Life) Incomplete 62.5 (Fair to Good Quality of Life) Social Limitation Score 50 (Class III Heart Failure) Incomplete 25 (Class III Heart Failure) Overall Summary Score 62.5 (Class II Heart Failure ) Incomplete 41.67 (Class III Heart Failure ) 03/18/2024 03/31/2024 06/01/2024 PHQ-9 Score 14 11 16 10/02/2022 03/18/2024 PROMIS Global Health - (T-Scores - the mean of general population = 50. Five points is a clinically meaningful difference.) Physical T-Score 47.7 42.3 Mental T-Score 36.3 36.3 PHYSICAL EXAMINATION: BP 94/56 (BP Site: Left Arm) Pulse 78 Ht 182.9 cm (6') Wt 77.1 kg (170 lb) SpO2 97% BMI 23.06 kg/m General: frail, NAD Neck: JVP 12 cm + HJR Legs: 1+ edema to the knees 2+ left CARDIOVASCULAR MEDICINE TESTING: I have personally reviewed the Electrocardiogram, Laboratory Testing, and Echocardiogram. Last ECHO Result Conclusion ECHO Collected: 07/23/2024 9:52 AM (Final result) Impression: CONCLUSIONS: - Exam indication: Shortness of Breath - The left ventricle is severely dilated. Left ventricular systolic function is severely decreased. EF = 22 5% (2D biplane) Left ventricular diastolic function was not evaluated due to mitral valve surgery. - The right ventricle is dilated. Right ventricular systolic function is moderately decreased. - The left atrial cavity is severely dilated. - The right atrial cavity is dilated. - The visualized aorta is dilated with a maximal dimension of 4.3 cm. - Percutaneous jnnu-oi-vcub repair of the mitral valve with 1 clip. There is moderate (2+) holosystolic mitral valve regurgitation. Regurgitant orifice area (PISA) is 0.83 cm . The peak gradient is 5 mmHg and the mean gradient is 1 mmHg. Transmitral gradients obtained at HR of 69 bpm. Prior pk/mn gradients of 6/3 mmHg at HR of 54 bpm. - There is moderate (2+) tricuspid valve regurgitation caused by annular dilatation. - Estimated right ventricular systolic pressure is 43 mmHg consistent with mild pulmonary hypertension. Estimated right atrial pressure is 8 mmHg based on IVC assessment. - Prior RVSP: 42 mmHg. - The soft echodensity on the basal posterior and lateral wall (presumed thrombus), below the mitral annulus is appreciated on today's exam as well, measuring 1.67 cm x 1.19 cm , clip# 59-61. - Known residual left to right flow across the IAS seen by color CW Dopper, with a peak velocity of 231 cm/s, clip# 111-115. - Exam was compared with the prior CC echocardiographic exam performed on 05/11/2024. Slightly more prominent MR. Otherwise, no changes. Similar findings. * * * Final * * * Last MERRITT Result Conclusion No resulted procedures found. Last EKG Result Conclusion ECG COMPLETE Collected: 08/19/2024 9:25 AM (Preliminary result) Impression: UNDETERMINED RHYTHM NONSPECIFIC INTRAVENTRICULAR BLOCK MINIMAL VOLTAGE CRITERIA FOR LVH, MAY BE NORMAL VARIANT ( Robert product ) LATERAL T WAVE ABNORMALITY ABNORMAL ECG IMPRESSION: 83 y/o M history of severe [...] profile with NTproBNP of 19,000 (predominantly left-sided). AZAEL. 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 Slight limitation of physical activity. Ordinary physical activity results in fatigue, palpitations, dyspnea or angina pectoris (mid CHF). MARGARETTE/ARB/ARNI NO Not taking due to hypotension Beta Jasbir YES - metoprolol succinate ER Dose titration in progress Aldosterone antagonist NO Not indicated SGLT2i YES - dapagliflozin propanediol Target dose achieved Hydralazine/Isosorbide Dinitrate NO Not indicated Ivabradine NO Not indicated PLAN AND RECOMMENDATIONS: -Blood work today -will consider spironolactone 12.5 mg daily pending blood work -You have about 5 extra pounds on you -will add you on 10/05/2024 as in-person visit -48hr holter I personally interviewed, confirmed and edited the above information as obtained by others I personally spent 50 minutes in total time involved in the management and care of this patient. We discussed natural history of disease, current treatment options, and future potential treatment options. We discussed diet, exercise, other non-medical management as above. Paulina Fernandes MD [facility] Section Of Heart Failure and Cardiac Transplant Medicine [facility] [place] [facility] Desk [address] [place] [address] documented in this encounter [facility] 08-19-2024 History of Presen t illness Narrative Images from the original note were not included. [facility] [place] Jose Martin Silva Department of Cardiovascular Medicine SECTION OF CARDIAC PACING and ELECTROPHYSIOLOGY OUTPATIENT VISIT DATE August 19, 2024 OUTPATIENT VISIT TYPE ESTABLISHED PRIMARY CARE PHYSICIAN: Samm Thompson [address] [place] [address] REFERRING PHYSICIAN: No referring provider defined for this encounter. CHIEF COMPLAINT: Follow up HISTORY OF PRESENT ILLNESS: Mr. Antonio is a 84 year old male who presents today for follow-up visit. NURSING INTAKE HISTORY: José Miguel Antonio Jr. is a 84 y/o male returning for follow up for PVCs and device management. His past medical history is significant for ICM (EF=25% April 2024) s/p DC-ICD (2018), CABG (2011, with cath in 2021 with patent OTTO-LAD and SVG to OM, with occluded VG to PDA), severe MR (s/p MV clip 02/18/2024 with residual moderate MR, Afib (prior stroke 2020 s/p tPA without deficits) on eliquis dose reduced for age and GFR, COPD with remote tobacco use (no home O2), CKD stage 3b (baseline Cr ~1.5-2.0), and symptomatic carotid stenosis (amaruosis fugax left eye, s/p right CEA 2012 and left carotid stenting 03/09/24), and LV thrombus. He follows with Dr. Brady in Imaging and DR. Fernandes in HF. On 07/21/24 he was admitted to the hospital for heart failure. Holter reveled a 28% PVC burden. He was seen in the hospital for Dr. Wei. It was recommended the patient wear a 48 hour 12 lead holter. Holter revealed a 21% PVC burden, longest run of VT 6 beats. He is not aware of any skipped, fast or irregular heartbeats. He has SOB with exertion. He has a dry cough. He has edema in his extremities. Sometimes he has lightheadedness with positional changes. He has decreased energy. On Saturday he noticed some blood in his stool. Aspirin was stopped. He underwent GI studies in April. He denies chest pain, palpitations or syncope . 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) 09/03/2022 Dyslipidemia Gastrointestinal hemorrhage 05/11/2024 GERD (gastroesophageal reflux disease) Heart failure, acute systolic ([facility]) Hypertension Hypothyroid Myocardial infarct, old Occlusion and stenosis of carotid artery without mention of cerebral infarction Prostate cancer ([facility]) 2020 PVC (premature ventricular contraction) PVD (peripheral vascular disease) ([facility]) 11/17/2012 Stroke (cerebrum) ([facility]) 09/03/2022 Systolic heart failure ([facility]) Thyroid disorder 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 kidney disease, unspecified CKD stage, 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 HEART CATHETERIZATION ICD (ICD) SOCIAL HISTORY Social History Tobacco Use Smoking status: Former Current packs/day: 0.00 Average packs/day: 1 pack/day for 10.0 years (10.0 ttl pk-yrs) Types: Cigarettes, Pipe Start date: 04/28/1972 Quit date: 04/28/1982 Years since quittin.3 Passive exposure: Never Smokeless tobacco: Never Vaping Use Vaping status: Never Used Substance Use Topics Alcohol use: Not Currently Comment: rarely Drug use: Never FAMILY HISTORY Problem Relation Age of Onset other (atrial fibrillation) Mother other (CHF) Mother other (Other) Mother at age 96 Coronary Artery Disease Father Heart Attack Father fatal [place] at age 77 Ischemic Heart Disease Brother CABGx6 first at age 72 No Known Problems Maternal Grandmother No Known Problems Maternal Grandfather No Known Problems Paternal Grandmother No Known Problems Paternal Grandfather No Known Problems Daughter No Known Problems Daughter No Known Problems Daughter other (Other) Other paternal cousin at age 50 of [place] ALLERGIES: ALLERGIES Allergen Reactions Latex Rash Adhesive Tape (Keyanna* Rash MEDICATIONS: apixaban (ELIQUIS) 5 mg tab(s) Take 1 tablet by mouth two times a day. cetirizine (ZYRTEC) 10 mg tablet Take 1 tablet by mouth once daily as needed. torsemide (DEMADEX) 20 mg tablet Take 2 tablets by mouth two times a day. coenzyme Q10 (CO Q-10) 100 mg cap capsule Take 100 mg by mouth two times a day. NUTRITION ASSOCIATE THYROID 60 mg tablet Take 1 tablet by mouth once daily. Give 1 tablet by mouth every 24 hours for give with 15mg =75mg total thyroid (NUTRITION ASSOCIATE THYROID) 15 mg tablet Take 1 tablet by mouth once daily. Give 1 tablet by mouth every 24 hours for give with 60mg=75mg total ezetimibe (ZETIA) 10 mg tablet Take 1 tablet by mouth once daily. dapagliflozin propanediol (FARXIGA) 10 mg tablet Take 1 tablet by mouth daily with breakfast. atorvastatin (LIPITOR) 40 mg tablet Take 1 tablet by mouth daily at bedtime. metoprolol succinate ER (TOPROL XL) 25 mg 24 hr tablet Take 1 tablet by mouth once daily. Ema Rankin RN PHYSICAL EXAMINATION: BP 108/56 Pulse 80 Ht 182.9 cm (6') Wt 77.1 kg (170 lb) BMI 23.06 kg/m BP w/Orthostatic Vitals Date and Time Orthostatic BP Orthostatic Pulse BP Pulse BP Position BP Site BP Cuff Size 08/19/24 1029 110/58 80 -- -- Standing -- -- 08/19/24 1028 112/59 85 -- -- Standing -- -- 08/19/24 1026 108/56 71 -- -- Supine -- -- 08/19/24 1019 -- -- 108/56 80 -- -- -- CARDIOVASCULAR MEDICINE TESTING: EKG 08/19/2024 reviewed: Device check Normal In-Office: With Events DUAL LEAD ICD * PRESENTS FOR: Office visit with Dr. Wei today. * Normal Device Function * Counters since: 02/2024 * Events or Alerts: 0 * Battery: 10 years * Sensing, impedance and thresholds reviewed and tested and are WNL * Presenting Rhythm: /VS with PVCs * Underlying Rhythm: SR with PVCs * Heart Rate Histograms reviewed * Pacing and Detection Parameters were evaluated * RA pacing 1% and RV pacing <1% . PVCs 31.9K. Tachycardia: AF * Stored EGMs are consistent with Atrial Fibrillation and AFL * AT/AF Lykens: 2% * On Eliquis. Non-sustained Ventricular Tachycardia * Stored EGMs are consistent with Non-sustained VT * Total episodes: 4 48 hour holter 07/24/24 Sinus rhythm, frequent ventricular ectopy, PVC burden 21%, Frequent supraventricular ectopy, PAC burden 7%, rare ventricular -paced beats present. Maximum HR 98 bpm, minimum HR 60 bpm, average HR 75 bpm. Frequent ventricular ectopy seen as multifocal singles, couplets, triplets, bigeminal cycles VE runs. Longest VT 6 beats at 117 bpm. Fastest VT run 6 beats at 136 bpm. Frequent supraventricular ectopy seen as singles, aberrant PAC, couplets, triplets, bigeminal cycles, SVE runs. Longest SVT run 9 beats at 126 bpm. Fastest SVT run 6 beats at 1463 bpm. No symptoms noted on diary. Event marker was not activated. Percentage of VE may be understated due to aberrancy and low voltage / misslabeled beats. NM SPECT/CT amyloid 07/23/24 CONCLUSIONS: 1. Not Consistent with TTR amyloidosis Echo 07/23/24 - Exam indication: Shortness of Breath - The left ventricle is severely dilated. Left ventricular systolic function is severely decreased. EF = 22 5% (2D biplane) Left ventricular diastolic function was not evaluated due to mitral valve surgery. - The right ventricle is dilated. Right ventricular systolic function is moderately decreased. - The left atrial cavity is severely dilated. - The right atrial cavity is dilated. - The visualized aorta is dilated with a maximal dimension of 4.3 cm. - Percutaneous ixce-wg-swcy repair of the mitral valve with 1 clip. There is moderate (2+) holosystolic mitral valve regurgitation. Regurgitant orifice area (PISA) is 0.83 cm . The peak gradient is 5 mmHg and the mean gradient is 1 mmHg. Transmitral gradients obtained at HR of 69 bpm. Prior pk/mn gradients of 6/3 mmHg at HR of 54 bpm. - There is moderate (2+) tricuspid valve regurgitation caused by annular dilatation. - Estimated right ventricular systolic pressure is 43 mmHg consistent with mild pulmonary hypertension. Estimated right atrial pressure is 8 mmHg based on IVC assessment. - Prior RVSP: 42 mmHg. - The soft echodensity on the basal posterior and lateral wall (presumed thrombus), below the mitral annulus is appreciated on today's exam as well, measuring 1.67 cm x 1.19 cm , clip# 59-61. - Known residual left to right flow across the IAS seen by color CW Dopper, with a peak velocity of 231 cm/s, clip# 111-115. - Exam was compared with the prior CC echocardiographic exam performed on 05/11/2024. Slightly more prominent MR. Otherwise, no changes. Similar findings. STAFF ADDENDUM: I have reviewed the above information and examined the patient and confirm the above with the following additions/modifications. HISTORY OF PRESENT ILLNESS: Mr. Antonio is an 84-year-old male who is here for a follow-up regarding management of his PVCs. He has a known history of coronary artery disease, CABG in 2011 with ischemic cardiomyopathy and an ejection fraction of 25% and most recently had a mitral valve clip procedure in February 2024. He continues to have some residual mitral regurgitation and low burden of atrial fibrillation but was also recently admitted with worsening heart failure. 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 The burden at that time was in the range of 28% and is here to follow-up on the same. He denies any history of palpitations or skipped beats and denies any history of lightheadedness, dizziness or presyncope but tends to have fatigue and shortness of breath. Overall his volume status is better and his weight was about 183 pounds when he was in the hospital and is now currently around 170 pounds. PHYSICAL EXAMINATION: GENERAL: Patient is alert, co-operative and oriented. No signs of acute distress. SKIN: Exam is unremarkable, no rashes/dermatitis HEENT: Unremarkable, Oral mucosa normal NECK: Neck supple, JVP not raised, No palpable thyromegaly. Carotids palpable bilaterally, No bruit. CHEST: Normal appearing. Lungs clear to auscultation. No crepitations or wheeze. HEART: Regular rate and rhythm. S1 normal S2 normal split. No S3/S4. No murmur. No rub. ABDOMEN: Soft, no obvious swelling/mass. No palpable organomegaly. Bowel sounds normal. PERIPHERAL VASCULAR/EXTREMITIES: Peripheral pulses palpable, No varicose veins or venous insufficiency. No pedal edema. MUSCULOSKELETAL: Normal extremities without any weakness or limitation of range of motion. NEUROLOGIC: No focal neurological deficits. No meningeal signs. MENTAL STATUS: Normal. EKG sinus rhythm with nonspecific intraventricular conduction defect and frequent PVCs of many different morphologies IMPRESSION: Mr. Antonio has a known history of coronary artery disease status post CABG and does not currently have any angina but has ischemic cardiomyopathy and symptoms of heart failure and effort intolerance. He has frequent PVCs and the large burden is likely a consequence of worsening LV function from myocardial stress than the cause of the cardiomyopathy. I explained to him regarding the risks and benefits of PVC suppression and the fact that he does not have any specific symptoms of the PVCs but could be having some fatigue and heart failure which may be related to the same. The only way to find out would be to suppress it and the options of amiodarone versus ablation were discussed with him. Given the multiple morphologies and the LV thrombus, I explained to him that ablation would not be a very likely option. We talked about the risks and benefits of amiodarone in the situation and he wishes to think further about it. In the meantime I suggested that may be reasonable to consider a twelve-lead 48-hour Holter to assess the PVC burden again after controlling heart failure and a morphology analysis for the future PLAN: 1. Continue current medication 2. Twelve-lead 48-hour Holter to assess PVC burden and morphology analysis 3. Continue to follow with Dr. Fernandes 4. Follow-up in 3 months or earlier as needed and get back to us in case he wishes to consider amiodarone Nj Wei MD August 19, 2024 10:33 PM This note was generated using Egully voice recognition system. Please excuse any typographical errors. documented in this encounter [facility] 08-19-2024 Note [facility] 08-17-2024 Telephone encounter Note Contacted the patient. He is currently taking torsemide. She believes his abdomen is swollen. His weight is the same. He is not having SOB. Instructed her to take the patient to the ED if he is having worsening symptoms. Instructed her to contact Dr. Fernandes's office. Transferred her to Dr. Fernandes's office. Ema Rankin RN [facility] 08-17-2024 Miscellaneous Notes Contacted the patient. He is currently taking torsemide. She believes his abdomen is swollen. His weight is the same. He is not having SOB. Instructed her to take the patient to the ED if he is having worsening symptoms. Instructed her to contact Dr. Fernandes's office. Transferred her to Dr. Fernandes's office. Ema Rankin RN August 17, 2024 Patient Contact Number: [phone] (home) [phone] (cell) Patient last seen within the last year: Yes Reason For Call: Follow-up Questions: Patient's daughter Charu called stated the patient is retaining water and she would like to know if this is something that can be addressed at the visit or should she count Dr. Fernandes's office? Please advise [phone] Thank you Adm Galilea Flux Tube Attendant documented in this encounter [facility] 08-17-2024 Telephone encounter Note August 17, 2024 Patient Contact Number: [phone] (home) [phone] (cell) Patient last seen within the last year: Yes Reason For Call: Follow-up Questions: Patient's daughter Charu called stated the patient is retaining water and she would like to know if this is something that can be addressed at the visit or should she count Dr. Fernandes's office? Please advise [phone] Thank you Adm Galilea Flux Tube Attendant [facility] 08-14-2024 Telephone encounter Note Images from the original note were not included. Carmela Fernandes MD Alfonsi, Dominique; i J3-4 Opd Nurses; Rubén Bucio MD; Opd Nurse Phone Pool3 minutes ago (4:54 PM) Given the LV thrombus he should have full dose Anticoagulation. However we should have him go to 2.5 mg BID for now and I will put in a GI referral for him to get a colonoscopy. Thanks - Andreas Change in plan per Dr. Fernandes: Stay on eliquis 5 mg BID and stop ASA. Called patient and provided above information. Patient verbalizes understanding. Patient states he does not think another colonoscopy is not necessary, he had a colonoscopy about a month ago and they did not find anything. EGD/colonoscopy on 05/14 in the OR, which showed normal upper and lower findings with no active or prior bleeding noted He states that this is the first time he's noticed it, its not a lot and is only when he flushes. Re-iterated patient to continue eliquis 5 mg BID and stop ASA. Monitor blood in stool - if worsen, ED evaluation. Patient verbalizes understanding. Irlanda Lo RN August 14, 2024 5:06 PM [facility] 08-14-2024 Miscellaneous Notes Images from the original note were not included. Carmela Fernandes MD Alfonsi, Dominique; i J3-4 Opd Nurses; Rubén Bucio MD; Ep Opd Nurse Phone Pool3 minutes ago (4:54 PM) Given the LV thrombus he should have full dose Anticoagulation. However we should have him go to 2.5 mg BID for now and I will put in a GI referral for him to get a colonoscopy. Thanks - Andreas Change in plan per Dr. Fernandes: Stay on eliquis 5 mg BID and stop ASA. Called patient and provided above information. Patient verbalizes understanding. Patient states he does not think another colonoscopy is not necessary, he had a colonoscopy about a month ago and they did not find anything. EGD/colonoscopy on 05/14 in the OR, which showed normal upper and lower findings with no active or prior bleeding noted He states that this is the first time he's noticed it, its not a lot and is only when he flushes. Re-iterated patient to continue eliquis 5 mg BID and stop ASA. Monitor blood in stool - if worsen, ED evaluation. Patient verbalizes understanding. Irlanda Lo RN August 14, 2024 5:06 PM Patient advised he is having blood in his stool and is worried his Eliquis is causing this because his dosage was uppsed from 2.5 to 5. Please assist. Thank you, Pablito Bellmaker documented in this encounter [facility] 08-14-2024 Telephone encounter Note Patient advised he is having blood in his stool and is worried his Eliquis is causing this because his dosage was uppsed from 2.5 to 5. Please assist. Thank you, Pablito [place] [facility] 08-14-2024 Telephone encounter Note OPENED IN ERROR [facility] 08-14-2024 Miscellaneous Notes OPENED IN ERROR documented in this encounter [facility] 08-03-2024 Telephone encounter Note Returned phone call from Charu and informed her we do not have the results of his 48 Hour holter at this time. I will discuss with out holter department to see if they received the monitor. Kinga Guy RN [facility] 08-03-2024 Miscellaneous Notes Returned phone call from Charu and informed her we do not have the results of his 48 Hour holter at this time. I will discuss with out holter department to see if they received the monitor. Kinga Guy RN August 03, 2024 Patient Contact Number: [phone] (home) [phone] (cell) Patient last seen within the last year: Yes Reason For Call: Test Results Patient's daughter Charu called requesting to review the results of the patient's monitor. Please advise Charu can be reached [phone] Thank you Adm Galilea Flux Tube Attendant documented in this encounter [facility] 08-03-2024 Telephone encounter Note August 03, 2024 Patient Contact Number: [phone] (home) [phone] (cell) Patient last seen within the last year: Yes Reason For Call: Test Results Patient's daughter Charu called requesting to review the results of the patient's monitor. Please advise Charu can be reached [phone] Thank you Adm Galilea Flux Tube Attendant [facility] 07-30-2024 Telephone encounter Note 1. Have you noticed any increase in shortness of breath since you left the hospital? no 2. Have you noticed any increased swelling in your feet, ankles, or belly? Skip for vascular pts no 3. Have you gained more than 2-3 pounds since discharge? Skip for vascular & EP pts no 4. Have you noticed any change in your incision, wound, IV sites since you were discharged as we want you to be aware of any signs of infection (fevers, chills, redness, warmth, swelling, increased tenderness, discharge)? no 5. Are you having any increased pain since discharge? If yes: What type of pain and where? (pressure, sharp pain, dull pain, etc.) No 6. Have you had any unplanned trips to the emergency department or hospital since you were discharged? If yes - why? no 7. Did you fill all of the prescribed medications? If no, do you need help filling your prescription? (Figure out why they re not filled) Yes 8. Do you have any questions about your medications? No 9. Do you have a doctor s appointment scheduled or is someone working on getting you a follow-up appointment? Yes Additional Comments: Pt instructed to contact 24-hour nurse hotline [phone] for any questions or concerns. Pt verbalized understanding. PD nurse confirmed/verified patient's and full name. All clear, closing statement given. Cullen Calvert RN [facility] 07-30-2024 Miscellaneous Notes 1. Have you noticed any increase in shortness of breath since you left the hospital? no 2. Have you noticed any increased swelling in your feet, ankles, or belly? Skip for vascular pts no 3. Have you gained more than 2-3 pounds since discharge? Skip for vascular & EP pts no 4. Have you noticed any change in your incision, wound, IV sites since you were discharged as we want you to be aware of any signs of infection (fevers, chills, redness, warmth, swelling, increased tenderness, discharge)? no 5. Are you having any increased pain since discharge? If yes: What type of pain and where? (pressure, sharp pain, dull pain, etc.) No 6. Have you had any unplanned trips to the emergency department or hospital since you were discharged? If yes - why? no 7. Did you fill all of the prescribed medications? If no, do you need help filling your prescription? (Figure out why they re not filled) Yes 8. Do you have any questions about your medications? No 9. Do you have a doctor s appointment scheduled or is someone working on getting you a follow-up appointment? Yes Additional Comments: Pt instructed to contact 24-hour nurse hotline [phone] for any questions or concerns. Pt verbalized understanding. PD nurse confirmed/verified patient's and full name. All clear, closing statement given. Cullen Calvert RN documented in this encounter [facility] 07-27-2024 Note [facility] 07-27-2024 History of Presen t illness Narrative HOLTER MONITOR APPLICATION Patient Name: José Miguel Antonio Jr. Clinic Number: [id number] Chest is cleansed with alcohol Skin prep applied Electrodes place on chest and stress loops secured with tape Fresh battery inserted in monitor Holter monitor secured to patient with waist or shoulder straps Patient instructed 1.) Diary documentation 2.) Usage of event button 3.) Maintenance and care of monitor 4.) Safety issues with monitor 5.) Return unit in 24 hours or 48 hours 6.) Call with problems [phone] Patient expresses good verbal understanding of instructions TECHNOLOGIST Meghan documented in this encounter [facility] 07-26-2024 Note [facility] 07-26-2024 Note [facility] 07-25-2024 Note [facility] 07-24-2024 Note [facility] 07-24-2024 Note [facility] 07-23-2024 Note [facility] 07-23-2024 Note [facility] 07-22-2024 Note [facility] 07-22-2024 Note [facility] 07-21-2024 Telephone encounter Note Called patient to inform him to go to [facility] ER for elevated troponin levels per Dr. Fernandes. Patient verbalized understanding and was being dropped off at [facility] ER by daughter. Mary Bourgeois RN July 21, 2024 2:09 PM [facility] 07-21-2024 Miscellaneous Notes Called patient to inform him to go to [facility] ER for elevated troponin levels per Dr. Fernandes. Patient verbalized understanding and was being dropped off at [facility] ER by daughter. Mary Bourgeois RN July 21, 2024 2:09 PM documented in this encounter [facility] 06-02-2024 Telephone encounter Note deferred Patient's name appears on the [facility] [place] Report for a PHQ-9 score of 16. Patient completed this questionnaire prior to his appointment with Cardiology. Oncology SW assessment deferred. MARIAM Ryder [facility] 06-02-2024 Miscellaneous Notes deferred Patient's name appears on the [facility] [place] Report for a PHQ-9 score of 16. Patient completed this questionnaire prior to his appointment with Cardiology. Oncology SW assessment deferred. MARIAM Ryder documented in this encounter [facility] 06-02-2024 Telephone encounter Note Patient seen by Dr. Fernandes VV 06/01/2024. Irlanda Lo RN June 02, 2024 8:54 AM [facility] 06-02-2024 Miscellaneous Notes Patient seen by Dr. Fernandes VV 06/01/2024. Irlanda Lo RN June 02, 2024 8:54 AM Images from the original note were not included. Carmela Fernandes MD You33 minutes ago (2:02 PM) How's he doing? What's his blood pressure. Reason for discontinuation of Farixga? Can address uncertainty at our virtual. Thank you Kindly Micaela Fernandes MD MSc Called patient. He is in a nursing facility, currently doing rehab. He is a little dizzy if he sits up but only lasts a few seconds. No SOB, but feels like he can't catch his breath. Dry cough any time of the day. Per discharge summary: DISCONTINUED MEDICATIONS: -Farxiga (MYLES) -Spironolactone (renal insufficiency) BP 110/65 Low a couple of times here, low-mid 90s and some of his medications were held. Per patient, he was given the okay to restart on farxiga and spironolactone by Dr. Fernandes. Attempted to call [facility] [phone] but unable to reach nurse. left with office number [phone]. Irlanda Lo RN May 22, 2024 2:48 PM Karly from [facility] ([address]) is calling because patient wants to know if he should continue or stop farxiga. He is also wondering about spironolactone 12.5mg but his bp is low. These were his discharge orders from his recent hospital stay. Nurse and patient wanting clarity L/S:03/31/24 Karly # [phone] documented in this encounter [facility] 06-01-2024 Note [facility] 06-01-2024 History of Presen t illness Narrative Answers submitted by the patient for this visit: Review of Systems Heart Failure (Submitted on 05/31/2024) Fever : No Night sweats: No Recent unintentional weight change: No Vision Disturbance: No Hearing Loss: No A cough: No Difficulty Breathing?: No Chest pain: No Leg Swelling: Yes Skipping or irregular heartbeats?: No Feel like passing out?: No Black tarry stools: No Nausea: No Diarrhea: No Difficulty Urinating?: No Joint pain or stiffness: Yes Muscle aches: No A rash: No Dizziness: No Headaches: No [facility] [place] Department of Cardiovascular Medicine VIRTUAL VIDEO VISIT ESTABLISHED OUTPATIENT VISIT SERVICE DATE: 06/01/2024 Patient: José Miguel Antonio Jr. SERVICE TIME: 2:59 PM : 1940 This is a virtual video visit. It required patient-provider interaction for the medical decision making as documented below. José Miguel Antonio Jr. has consented to this video encounter. I have communicated my name and active licensure. The patient's identity and physical location were verified at the time of this visit. Either the patient or their legal accounting representative has been informed of the risks and benefits of -- and alternatives to -- treatment through a remote evaluation and consents to proceed with the evaluation remotely. José Miguel Antonio Jr. is a 84 year old male seen for follow-up. CHIEF COMPLAINT GIB HISTORY OF PRESENT ILLNESS José Miguel Antonio Jr. is a 84 year old male Mr. Antonio is an 84yo man with PMH significant for ICM (EF 22%) s/p DC-ICD (2018), CABG (2011, with last cath in 2021 with patent OTTO-LAD and SVG to OM, with occluded VG to PDA), severe MR (s/p MV clip 02/18/2024 with residual moderate MR, Afib (prior stroke 2020 s/p tPA without deficits), COPD with remote tobacco use (no home O2), CKD stage 3b (baseline Cr ~1.5-2.0), and symptomatic carotid stenosis (amaruosis fugax left eye, s/p right CEA 2012 and left carotid stenting 03/09/24) who presented as a transfer from OSH for continued evaluation and management of c/f GIB on AC. Given his significant cardiac history and that he follows with [facility] Cardiology, he was admitted to the Clinical Cardiology service. Briefly, he was admitted to OSH 05/06 from his outpatient echo appointment for generalized weakness, fatigue, and worsening dyspnea on exertion after having completed a four-week course of medications for L carotid stenting, which included asa 325 daily and clopidogrel daily. During that time, his prior AC (apixaban) was held, but he was started on rivaroxaban on 03/29 for a LV thrombus on echocardiogram. At the OSH he was found to have anemia (Hgb 8.8 as compared to his baseline of 11.3 last documented on 03/24) as well as melanotic stools with positive guaiac. He was evaluated by GI there and his AC was initially held but he was put on a heparin ggt due to an LV thrombus and tolerated it. He was transferred to [facility] at request of his family as he follows with Cardiology here. With respect to his anemia, his hemoglobin remained stable during the hospitalization and he had no additional bleeding noted. Iron studies were unremarkable (though he was noted to have low Iron in early April during an outpatient evaluation and is s/p iron transfusions). After evaluation given his cardiac risk factors, he underwent an EGD/Colonoscopy on 05/14 in the OR, which showed normal upper and lower findings with no active or prior bleeding noted. The bleeding occurred during a period of time in which the patient was taking high doses of asa with clopidigrel and also Rivaroxaban. Per neurology note in the chart, he was discharged 03/05 on the DAPT regimen with a plan to DC clopidogrel and resume Rivaroxaban on April 01. With respect to AC, the patient was started on Apixaban roughly two years prior to this presentation when he was diagnosed with atrial fibrillation, but per family was stopped on recommendation of a physician (not seen in chart). After his Mitral Clip in early February, he was started on Rivaroxaban. After being monitored on Heparin and then Apixaban (patient preference over Rivaroxaban) without additional drop in Hgb or bleeding, and after risk/benefit discussion with the patient and his family with shared decision-making, patient will discharge on Apixaban (dosed for Cr and age). He is discharged now, following that guidance, on baby Asa and Apixaban with follow up requested with neurology. While here, a repeat echocardiogram was completed which showed and EF of 22% (as compared to 05/06/24 showing 15% and 02/19/24 showing 28%). The LV thrombus that was noted near the posterior MV leaflet on prior echo (05/06/24) was noted on echo here, but appeared reduced. He was continued on a Heparin ggt and transitioned to Eliquis and his Hgb also remained stable with no bleeding. Of note he underwent an EGD and colonoscopy with no clear evidence of bleeding His volume status was evaluated daily and he was given Furosemide as indicated. His kidney function was also monitored and his new baseline Cr appears to be 2-2.2. He will be discharged on his home dose of furosemide with plans for cardiology follow-up. 05/20/24 05/25/24 Cre 1.8 Feeling well no shortness of breath. No leg swelling. 9.9 hemoglobin. 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 ([facility]) 09/03/2022 Dyslipidemia Gastrointestinal hemorrhage 05/11/2024 GERD (gastroesophageal reflux disease) Heart failure, acute systolic ([facility]) Hypertension Hypothyroid Myocardial infarct, old Occlusion and stenosis of carotid artery without mention of cerebral infarction Prostate cancer ([facility]) 2020 PVD (peripheral vascular disease) ([facility]) 11/17/2012 Stroke (cerebrum) ([facility]) 09/03/2022 Systolic heart failure ([facility]) Thyroid disorder 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 kidney disease, unspecified CKD stage, 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 ([facility]) 04/26/2023 Ventricular tachycardia ([facility]) 04/28/2012 PAST SURGICAL HISTORY Procedure Laterality [...] Artery Disease Father Heart Attack Father fatal [place] at age 77 Ischemic Heart Disease Brother CABGx6 first at age 72 No Known Problems Maternal Grandmother No Known Problems Maternal Grandfather No Known Problems Paternal Grandmother No Known Problems Paternal Grandfather No Known Problems Daughter No Known Problems Daughter No Known Problems Daughter other (Other) Other paternal cousin at age 50 of [place] Social History Tobacco Use Smoking status: Former Current packs/day: 0.00 Average packs/day: 1 pack/day for 10.0 years (10.0 ttl pk-yrs) Types: Cigarettes, Pipe Start date: 04/28/1972 Quit date: 04/28/1982 Years since quittin.1 Passive exposure: Never Smokeless tobacco: Never Vaping Use Vaping status: Never Used Substance Use Topics Alcohol use: Yes Comment: rarely Drug use: Never ALLERGIES Allergen Reactions Latex Rash Adhesive Tape (Keyanna* Rash CURRENT MEDICATIONS spironolactone (ALDACTONE) 25 mg tablet Take 0.5 tablets by mouth once daily. atorvastatin (LIPITOR) 40 mg tablet Take 1 tablet by mouth daily at bedtime. furosemide (LASIX) 40 mg tablet Take 1 tablet by mouth once daily. metoprolol succinate ER (TOPROL XL) 25 mg 24 hr tablet Take 1 tablet by mouth once daily. NUTRITION ASSOCIATE THYROID 15 mg tablet Take 1 tablet by mouth once daily. apixaban (ELIQUIS) 2.5 mg tab(s) Take 1 tablet by mouth two times a day. aspirin 81 mg chewable tablet Take 1 tablet by mouth once daily. cyanocobalamin (VITAMIN B-12) 100 mcg tab Take 1 tablet by mouth once daily. ezetimibe (ZETIA) 10 mg tablet Take 1 tablet by mouth once daily. pantoprazole DR (PROTONIX) 40 mg tablet Take 1 tablet by mouth two times a day before meals at 6 am and 4 pm. folic acid 1 mg tablet Take 1 tablet by mouth once daily. thiamine (VITAMIN B1) 50 mg tablet Take 1 tablet by mouth once daily. REVIEW OF SYSTEMS: See above PHYSICAL EXAMINATION: VIDEO EXAM: (if completed, performed via video enabled technology) GENERAL: alert and appropriate, in no distress, well-hydrated, well nourished, and happy, smiling, interactive PATIENT ENTERED QUESTIONNAIRE SCORES ALERT: PHQ-9 Score: 16 indicates Moderate to Severe Depression 06/01/2024 03/31/2024 03/18/2024 PHQ-9 Score 16 11 14 03/18/2024 10/02/2022 PROMIS Global Health - (T-Scores - the mean of general population = 50. Five points is a clinically meaningful difference.) Physical T-Score 42.3 47.7 Mental T-Score 36.3 36.3 ASSESSMENT: 83 y/o M history of severe functional MR, ICM (s/p ICD in 2018), CABG 2011, LHC in 2021 patent OTTO-LAD and SVG to OM, occluded VG to PDA), prior stroke, COPD (prior smoking), CKD 3b, currently his predominant symptom is fatigue which may be the result of low output state. Unfortunately, age is preclusive to pursuing advanced therapies despite a clinically advanced profile with NTproBNP of 19,000 (predominantly left-sided). AZAEL. 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 Slight limitation of physical activity. Ordinary physical activity results in fatigue, palpitations, dyspnea or angina pectoris (mid CHF). MARGARETTE/ARB/ARNI NO Not taking due to hypotension Beta Jasbir YES - metoprolol succinate ER Target dose suboptimal - limited by hypotension Aldosterone antagonist NO Not taking due to hypotension SGLT2i YES - dapagliflozin propanediol Target dose achieved Hydralazine/Isosorbide Dinitrate NO Not indicated Ivabradine NO Not indicated PLAN (Active Outpatient Problems): -reduced ASA 81 mg daily -tiffanie Talamantes personally spent 41 minutes in total time involved in the management and care of this patient. Carmela Fernandes MD June 01, 2024 2:59 PM documented in this encounter [facility] 05-22-2024 Telephone encounter Note Images from the original note were not included. Carmela Fernandes MD You33 minutes ago (2:02 PM) How's he doing? What's his blood pressure. Reason for discontinuation of Farixga? Can address uncertainty at our virtual. Thank you Kindly Micaela Fernandes MD MSc Called patient. He is in a nursing facility, currently doing rehab. He is a little dizzy if he sits up but only lasts a few seconds. No SOB, but feels like he can't catch his breath. Dry cough any time of the day. Per discharge summary: DISCONTINUED MEDICATIONS: -Farxiga (MYLES) -Spironolactone (renal insufficiency) BP 110/65 Low a couple of times here, low-mid 90s and some of his medications were held. Per patient, he was given the okay to restart on farxiga and spironolactone by Dr. Fernandes. Attempted to call [facility] [phone] but unable to reach nurse. left with office number [phone]. Irlanda Lo RN May 22, 2024 2:48 PM [facility] 05-20-2024 Telephone encounter Note Karly from [facility] ([address]) is calling because patient wants to know if he should continue or stop farxiga. He is also wondering about spironolactone 12.5mg but his bp is low. These were his discharge orders from his recent hospital stay. Nurse and patient wanting clarity L/S:03/31/24 Karly # [phone] [facility] 05-15-2024 Note [facility] 05-15-2024 Note [facility] 05-14-2024 Note [facility] 05-13-2024 Note [facility] 05-12-2024 Note [facility] 05-12-2024 Note [facility] 05-12-2024 Note [facility] 05-11-2024 Note [facility] 05-11-2024 Note [facility] 05-10-2024 Note [facility] 05-09-2024 Note HNO ID: [id number] Author: PETE PRATT, INOCENTE Service: Care Management Author Type: Registered Nurse Type: Care Mgt Progress Note Filed: 05/09/2024 09:24 Note Text: CARE MANAGEMENT PROGRESS NOTE SERVICE DATE: 05/09/2024 SERVICE TIME: 9:24 AM LOS: 3 days Patient to be transferred to [facility] at 1pm via MMT. Informed accepting SNF [facility] of transfer. SIGNATURE: Pete Pratt RN PATIENT NAME: José Miguel Antonio Jr. DATE: May 09, 2024 TIME: 9:23 AM PAGER/CONTACT #: [phone] [facility] 05-09-2024 Note HNO ID: [id number] Author: CARINA PARISI APRN.CNP Service: Hospital Medicine Author Type: Nurse Practitioner Type: Plan of Care Filed: 05/09/2024 02:00 Note Text: Report Vtach w asymptomatic VS Stable In setting of ANEMIA/ ?GIB /Xarelto on hold and current on Heparin drip EKG reviewed Chart reviewed 03/24/24 13:05 05/06/24 17:05 05/07/24 05:15 05/07/24 18:41 05/08/24 05:26 WBC 5.95 6.52 6.32 5.25 5.29 RBC 4.10 (L) 2.93 (L) 2.78 (L) 2.63 (L) 2.71 (L) Hemoglobin 11.3 (L) 8.8 (L) 8.4 (L) 8.0 (L) 8.1 (L) Hematocrit 37.7 (L) 29.6 (L) 28.8 (L) 27.2 (L) 27.9 (L) Platelet Count 162 194 160 158 166 MCV 92.0 101.0 (H) 103.6 (H) 103.4 (H) 103.0 (H) 05/06/24 17:05 05/07/24 05:15 05/08/24 06:28 Sodium 140 140 140 Potassium 4.1 3.6 (L) 3.4 (L) Chloride 103 104 105 CO2 24 25 24 BUN 40 (H) 42 (H) 39 (H) Creatinine 2.07 (H) 2.09 (H) 2.07 (H) Glucose 105 (H) 93 105 (H) Protein, Total 6.2 (L) Calcium 9.1 8.6 8.4 (L) Magnesium 2.5 (H) 2.4 (H) 2.3 Plan: -Keep K>4 AND Mg>2 -Lab CBC, BMP, Mg in am -May transfuse if hb <7.0 or active bleeding -Cardio to follow -Pending GI consult -Cont to monitor Carina Parisi APRN.VEGETABLE BUNCHER May 09, 2024 2:00 AM [facility] 05-08-[address] Fernandes called the daughter. Marce Springer RN May 08, 2024 5:15 PM [facility] 05-08-[address] Fernandes called the daughter. Marce Springer RN May 08, 2024 5:15 PM Called Charu and relayed message from Dr. Fernandes. While on the phone, daughter stated patient is in the hospital now and the physicians are planning an EGD and colonoscopy and daughter wants to proceed but would like Dr. Fernandes to comment on the plan. Marce Springer RN May 08, 2024 12:11 PM Images from the original note were not included. Paulina Fernandes MD You2 days ago EDEN Moncada I meant Xarelto not eliquis! Paulina Fernandes MD You2 days ago EDEN Zheng, Please have them reach out to neurology regarding the aspirin 325. The eliquis should be continued. They were on ASA 325 post carotid stenting. I'm curious if that can be stopped but should be discussed with neurology team. Thanks, - Andreas Patients daughter thinks he is on too many blood thinners, sob, doesn't go to cardiac rehab because he is too tired. Please call her at [phone] Charu. Thank you, Sandeep documented in this encounter [facility] 05-08-2024 Note HNO ID: [id number] Author: JAMIE HEREDIA MD Service: Hospital Medicine Author Type: Physician Type: Progress Notes Filed: 05/08/2024 21:02 Note Text: DEPARTMENT OF HOSPITAL MEDICINE PROGRESS NOTE SERVICE DATE: 05/08/2024 SERVICE TIME: 6:01 PM Hospital Medicine/Primary Attending: Jamie Heredia MD NIGHT AND WEEKEND COVERAGE: MARIN COVERAGE: Days: [phone], please contact via [employer] Nights: - 3rd floor: please page Hospitalist night cover [phone] - 4W: please page Hospitalist night cover #[phone] - 5th floor: please page Hospitalist night cover #[phone] - SDU (17:00 - 19:00): Please page #[phone] - SDU (19:00 - 07:00): Please call [facility] at [phone] Subjective INTERVAL HPI: Patient was seen and examined Chart reviewed Came in because of overall generalized weakness and short of breath Pertinent recent changes in clinical status- -- hx of ICM s/p ICD 2019, CHFrEF (EF 17%), severe MR s/p MV clip 02/18/2024, s/p left carotid stenting 03/09/24, LV thrombus 03/29/24 on Xarelto, CAD s/p CBAG 2011, stroke 2020 s/p tPA without deficits, COPD not on oxygen, CKD stage 3, right CEA 2011 Placed on DAPT x 4 weeks post L CEA in 03/06/24--> downgraded to xarelto and ASA 81 mg vs 325 mg pending post CEA, L follow up L CEA was done by Neuro-IR at [facility] Virtual follow up by Neurology on 03/18--> was told to keep ASA at 325 mg daily Telephone communication with neurology--> dc plavix and restarted xarelto in April 01 along with asa 325 mg Since March, noted steady drop in hgb as well as iron PCP in [place] started patient on IV iron infusions Was last seen by his vascular surgeon in 09/03/2022 Today 05/08/24 No chest pain No SOB Tolerating regular diet Is receiving bowel prep in preparation for scopes on Saturday on hold per anesthesia's recommendations Noted patient's BP readings - mid 90s to the 110s He is not hypoxic with sats mid to 90s on RA Current Facility-Administered Medications Medication Dose Route Frequency pantoprazole 40 mg injection (PROTONIX) 40 mg INTRAVENOUS BID AC (0600/1600) Followed by [START ON 05/10/2024] pantoprazole 40 mg injection (PROTONIX) 40 mg INTRAVENOUS DAILY (6 AM) atorvastatin 40 mg tab(s) (LIPITOR) 40 mg ORAL AT BEDTIME ezetimibe 10 mg tab(s) (ZETIA) 10 mg ORAL DAILY metoprolol succinate ER 25 mg tab(s) (TOPROL XL) 25 mg ORAL DAILY thyroid 60 mg tab(s) 60 mg ORAL DAILY thyroid 15 mg tab(s) 15 mg ORAL DAILY NaCl 0.9% iv flush bag 20 mL INTRAVENOUS PRN acetaminophen 650 mg tab(s) (TYLENOL) 650 mg ORAL q 6 H PRN heparin iv infusion 25,000 units in NaCl 0.45% 250 mL LOW DOSE/ACS NOMOGRAM 0-3,000 Units/hr INTRAVENOUS CONTINUOUS And heparin RATE CHANGE bolus 1,000-4,000 Units for subtherapeutic PTTAC results 1,000-4,000 Units INTRAVENOUS PRN enteric contrast (radiology procedure) ORAL DIRECTED PRN polyethylene glycol 3350 17 g packet 17 g ORAL DAILY senna-docusate 8.6-50 mg 1 tablet (SENNA-S) 1 tablet ORAL BID furosemide 40 mg tab(s) (LASIX) 40 mg ORAL DAILY Objective PHYSICAL EXAM: BP 95/55 Pulse 65 Temp (Src) 97.5 (Oral) Resp 18 Ht 6' 0 (1.83m) Wt 178 lb 12.7 oz (81.1kg) SpO2 99% BMI 24.24 kg/(m2). O2 Therapy: Room Air Physical Exam Performed GENERAL: Alert, no distress, cooperative EYES: PERRLA OROPHARYNX: moist oral mucosa NECK: Supple LUNGS: clear breath sounds CARDIAC: adynamic precordium ABDOMEN: Soft, nontender EXTREMITIES: mild LE edema, no cyanosis NEURO: mild cognitive deficit, poor short term memory, otherwise non focal Lines, Drains, and Airways Line Duration Peripheral 05/06/24 1706 [facility] Short Right Antecubital 20 Gauge 2 days Reviewed lines and needs to be continued: REASONS: heparin drip DATA: Diagnostic tests reviewed for today's visit: Latest Reference Range AND Units 05/08/24 06:28 Sodium 136 - 144 mmol/L 140 Potassium 3.7 - 5.1 mmol/L 3.4 (L) Chloride 98 - 107 mmol/L 105 CO2 22 - 30 mmol/L 24 BUN 9 - 24 mg/dL 39 (H) Creatinine 0.73 - 1.22 mg/dL 2.07 (H) Glucose 74 - 99 mg/dL 105 (H) Calcium 8.5 - 10.2 mg/dL 8.4 (L) Magnesium 1.7 - 2.3 mg/dL 2.3 Anion Gap 8 - 15 mmol/L 11 eGFR >=60 mL/min/1.73m? 31 (L) (L): Data is abnormally low (H): Data is abnormally high Latest Reference Range AND Units 05/08/24 05:26 WBC 3.70 - 11.00 k/uL 5.29 RBC 4.20 - 6.00 m/uL 2.71 (L) Hemoglobin 13.0 - 17.0 g/dL 8.1 (L) Hematocrit 39.0 - 51.0 % 27.9 (L) Platelet Count 150 - 400 k/uL 166 MCV 80.0 - 100.0 fL 103.0 (H) MCH 26.0 - 34.0 pg 29.9 MCHC 30.5 - 36.0 g/dL 29.0 (L) MPV 9.0 - 12.7 fL 10.6 RDW-CV 11.5 - 15.0 % 22.1 (H) (L): Data is abnormally low (H): Data is abnormally high Assessment/Plan Problem List Assessment AND Plan Acute blood loss anemia Hyperlipidemia Carotid stenosis, 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, left Coronary artery disease involving coronary bypass graft of [place] heart without angina pectoris (more content not included)... [facility] 05-08-2024 Note HNO ID: [id number] Author: PAULETTE ARMENDARIZ LISW Service: Care Management Author Type: Community Integration Specialist Type: Care Mgt Progress Note Filed: 05/08/2024 13:53 Note Text: CARE MANAGEMENT PROGRESS NOTE SERVICE DATE: 05/08/2024 SERVICE TIME: 1344 LOS: 2 days Needs Prior to Discharge: Patient/Family [facility] has accepted. [facility] does not have beds. Met with pt to discuss further. Pt states he was seen by GI today and is trying to decide if he wants to pursue with EGD and colonoscopy on Saturday per their recommendations. He was pleased to learn [facility] will accept but states he will put a call out to [facility] to talk about bed availability. 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 After he talks with [facility] he will make final decision. As he is straight medicare a precert would not be needed. Will need to do 7000 once decision is made and anticipated d/c is known. All 3 dtr's called into the room during conversation and were updated. One of his daughters will transport pt at discharge. Had offered hoarding resources resources yesterday but pt was not interested. SW/CM to follow. SIGNATURE: RINA Guerrero PATIENT NAME: José Miguel Antonio Jr. DATE: May 08, 2024 TIME: 1:44 PM PAGER/CONTACT #: [phone] [facility] 05-08-2024 Note HNO ID: [id number] Author: JESUSITA MELO CT Service: Radiology Author Type: Technologist Type: Progress Notes Filed: 05/08/2024 13:34 Note Text: Radiology Service Progress Note PATIENT NAME: José Miguel Antonio Jr. DATE OF SERVICE: May 08, 2024 TIME: 1:33 PM PATIENT IDENTITY VERIFICATION COMPLETED USING TWO (2) IDENTIFIERS: Name and Date of confirmed by patient verbally. FALL SCREENING: Has the patient had 2 falls in the last year or 1 fall with injury or currently using an Ambulatory Assistive Device (Walker, Cane, Wheelchair, Crutches, etc.)? Inpatient: Screened on floor PATIENT GENDER DATA: Male PATIENT RELEVANT IMPLANT DATA REVIEWED: Not Applicable PATIENT PRESENTS WITH AN IMPLANTABLE OR ATTACHED TURF AND GROUNDS SUPERVISOR: No RADIOLOGY DEPARTMENT: CT; Exam(s) Completed: Abdomen/Pelvis PERIPHERAL IV DATA: Not applicable SIGNED BY: KASSI RITCHIE May 08, 2024 1:33 PM [facility] 05-08-2024 Telephone encounter Note Called Charu and relayed message from Dr. Fernandes. While on the phone, daughter stated patient is in the hospital now and the physicians are planning an EGD and colonoscopy and daughter wants to proceed but would like Dr. Fernandes to comment on the plan. Marce Springer RN May 08, 2024 12:11 PM [facility] 05-08-2024 Telephone encounter Note Images from the original note were not included. Paulina Fernandes MD You2 days ago EDEN Moncada I meant Xarelto not eliquis! Paulina Fernandes MD You2 days ago EEDN Zheng, Please have them reach out to neurology regarding the aspirin 325. The eliquis should be continued. They were on ASA 325 post carotid stenting. I'm curious if that can be stopped but should be discussed with neurology team. Thanks, - Andreas [facility] 05-07-2024 Note HNO ID: [id number] Author: PAULETTE ARMENDARIZ LISW Service: Care Management Author Type: Community Integration Specialist Type: Care Mgt Initial Assessment Filed: 05/07/2024 16:16 Note Text: CARE MANAGEMENT: ASSESSMENT AND DISCHARGE PLAN SERVICE DATE: May 07, 2024 SERVICE TIME: 1400 PCP: Samm Thompson MD Primary Contact: Extended Emergency Contact Information Primary Emergency Contact: Charu Cain Mobile Relation: Daughter Secondary Emergency Contact: [place] [address] [facility] Relation: Daughter Admission Status: Inpatient Insurance Provider: MEDICARE A AND B Discharge Planning requested by: Per Department Practice Potential Transition Plans Residential Facility/Intermediate Care Facility;To Be Determined Advance Directives Current Advance Directive: None Trash Collector Truck Driver Attempted to Assist with AD Completion: Yes Action: Education Provided Current Living Arrangements and Support Lives with: Alone Type of Residence: Private Residence (House) Does the patient have to climb stairs at home?: No Support: Family members How do you manage to accomplish the following: Independent: Ambulation;Bathe/Shower;Dress;Me als/Meal Prep;Going to the bathroom;Medication Management;Transportation to appointments/community Current Services/Equipment Current Post-Acute Service(s): DME Current DME Type: Shower seat, Other: See Comment (Has walker and wheelchair but does not need them currently) Discharge Planning Patient Goal(s): General wellness, Ambulate a little better [place] Explained: [place] Given: Yes Level of Care Discussed: Residential Facility Are you interested in bedside delivery of your medications? No Discharge Planning Participant(s): Patient Patient/Family Comments: Dtesperanza Pretty in room, and other dtr's Zack [phone] on speaker phone Caregiver Assessment: Caregiver is ready, willing and able to meet the patient's needs as recommended by the inter-professional team: No Caregiver needed Transport at Discharge: Transportation Arrangements: Car Needs Prior to Discharge: Needs Prior to Discharge: Accepting Facility;To Be Determined Post-Acute Discharge Plan: Met with pt to provide support and assess for needs. DtrMaria De Jesus requested consult as house is in bad condition. States he has 4 cats that do not use the litter box and they need respirators to enter the house. Pt also has multiple boxes of family member items he needs to sort through. He states he is able to walk through his house with room to spare. Pt and dtr's state he was at a SNF in the past after a hospital stay and would like to pursue again despite therapy recommendations Pt and dtrs are not interested in home care d/t house conditions per dtr. Pt is active with outpt cardiac rehab near his home ([facility]?) Pt was 2 years ago. Brother was just placed in an ECF. He admits to feeling more depressed which compounds things. Looking at the boxes he feels overwhelmed. States he talked to his PCP, is not interested in starting medication, nor is he interested in grief counseling. He has no intention of moving into [facility]. Dtr's are trying to get him to consider moving to a trailer park and gettting rid of his cats. Pt is not interested in resources for hoarding at this time. Referrals sent in order to [facility]. 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 Does NOT want [facility] where his brother is staying. SW/NATALIA to follow. SIGNATURE: RINA Guerrero PATIENT NAME: José Miguel Antonio Jr. DATE: May 07, 2024 TIME: 4:07 PM CONTACT #: [phone] [facility] 05-07-2024 Note HNO ID: [id number] Author: JAMIE HEREDIA MD Service: Hospital Medicine Author Type: Physician Type: Progress Notes Filed: 05/08/2024 05:31 Note Text: DEPARTMENT OF HOSPITAL MEDICINE PROGRESS NOTE SERVICE DATE: 05/07/2024 SERVICE TIME: 10:23 AM Hospital Medicine/Primary Attending: Jamie Heredia MD NIGHT AND WEEKEND COVERAGE: [place] COVERAGE: Days: [phone], please contact via MobiTX Nights: [phone] - 3rd floor: please page Hospitalist night cover [phone] - 4W: please page CC Hospitalist night cover #[phone] - 5th floor: please page CC Hospitalist night cover #[phone] - SDU (17:00 - 19:00): Please page #[phone] - SDU (19:00 - 07:00): Please call [facility] at [phone] Subjective INTERVAL HPI: Patient was seen and examined Chart reviewed Came in because of overall generalized weakness and short of breath Pertinent recent changes in clinical status- -- hx of ICM s/p ICD 2018, CHFrEF (EF 17%), severe MR s/p MV clip 02/18/2024, s/p left carotid stenting 03/09/24, LV thrombus 03/29/24 on Xarelto, CAD s/p CBAG 2011, stroke 2020 s/p tPA without deficits, COPD not on oxygen, CKD stage 3, right CEA 2011 Placed on DAPT x 4 weeks post L CEA in 03/06/24--> downgraded to xarelto and ASA 81 mg vs 325 mg pending post CEA, L follow up L CEA was done by Neuro-IR at [facility] Virtual follow up by Neurology on 03/18--> was told to keep ASA at 325 mg daily Telephone communication with neurology--> dc plavix and restarted xarelto in April 01 along with asa 325 mg Since March, noted steady drop in hgb as well as iron PCP in [place] started patient on IV iron infusions Was last seen by his vascular surgeon in 09/03/2022 Current Facility-Administered Medications Medication Dose Route Frequency pantoprazole 40 mg injection (PROTONIX) 40 mg INTRAVENOUS BID AC (0600/1600) Followed by [START ON 05/10/2024] pantoprazole 40 mg injection (PROTONIX) 40 mg INTRAVENOUS DAILY (6 AM) atorvastatin 40 mg tab(s) (LIPITOR) 40 mg ORAL AT BEDTIME ezetimibe 10 mg tab(s) (ZETIA) 10 mg ORAL DAILY metoprolol succinate ER 25 mg tab(s) (TOPROL XL) 25 mg ORAL DAILY dapagliflozin propanediol 10 mg tab(s) (FARXIGA) 10 mg ORAL DAILY WITH BREAKFAST thyroid 60 mg tab(s) 60 mg ORAL DAILY thyroid 15 mg tab(s) 15 mg ORAL DAILY NaCl 0.9% iv flush bag 20 mL INTRAVENOUS PRN acetaminophen 650 mg tab(s) (TYLENOL) 650 mg ORAL q 6 H PRN Objective PHYSICAL EXAM: BP 102/48 Pulse 67 Temp (Src) 97.5 (Oral) Resp 18 Ht 6' 0 (1.83m) Wt 180 lb 1.9 oz (81.7kg) SpO2 92% BMI 24.42 kg/(m2). O2 Therapy: Room Air Physical Exam Performed GENERAL: Alert, no distress, cooperative EYES: PERRLA OROPHARYNX: moist oral mucosa NECK: Supple LUNGS: clear breath sounds CARDIAC: adynamic precordium ABDOMEN: Soft, nontender EXTREMITIES: mild LE edema, no cyanosis NEURO: mild cognitive deficit, poor short term memory, otherwise non focal Lines, Drains, and Airways Line Duration Peripheral 05/06/24 1706 [facility] Short Right Antecubital 20 Gauge <1 day Reviewed lines and needs to be continued: REASONS: heparin drip DATA: Diagnostic tests reviewed for today's visit: Latest Reference Range AND Units 05/07/24 05:15 Sodium 136 - 144 mmol/L 140 Potassium 3.7 - 5.1 mmol/L 3.6 (L) Chloride 98 - 107 mmol/L 104 CO2 22 - 30 mmol/L 25 BUN 9 - 24 mg/dL 42 (H) Creatinine 0.73 - 1.22 mg/dL 2.09 (H) Glucose 74 - 99 mg/dL 93 Calcium 8.5 - 10.2 mg/dL 8.6 Magnesium 1.7 - 2.3 mg/dL 2.4 (H) Anion Gap 8 - 15 mmol/L 11 eGFR >=60 mL/min/1.73m? 31 (L) Ferritin 30.3 - 565.7 ng/mL 804.6 (H) Iron 41 - 186 ug/dL 56 TIBC 232 - 386 ug/dL 239 Transferrin Saturation 15.0 - 57.0 % 23.4 WBC 3.70 - 11.00 k/uL 6.32 RBC 4.20 - 6.00 m/uL 2.78 (L) Hemoglobin 13.0 - 17.0 g/dL 8.4 (L) Hematocrit 39.0 - 51.0 % 28.8 (L) Platelet Count 150 - 400 k/uL 160 MCV 80.0 - 100.0 fL 103.6 (H) MCH 26.0 - 34.0 pg 30.2 MCHC 30.5 - 36.0 g/dL 29.2 (L) MPV 9.0 - 12.7 fL 10.6 RDW-CV 11.5 - 15.0 % 22.5 (H) Assessment/Plan Problem List Assessment AND Plan Acute blood loss anemia Hyperlipidemia Carotid stenosis, 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, left Coronary artery disease involving coronary bypass graft of [place] heart without angina pectoris Systolic heart failure (HCC) S/P CABG (coronary artery bypass graft) 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 kidney disease, unspecified CKD stage, unspecified whether snf insulin use (HCC) Stage 3b chronic kidney disease (HCC) Severe mitral regurgitation Atrial fibrillation (HCC) LV (left ventricular) mural thrombus Generalized weakness HOSPITAL COURSE: José Miguel Antonio Jr. is a 84 year old male presents with overall generalized fatigue and SOB -- hx of R CEA in 2011 done by vascular surgery -- has known hx of ICM s/p AICD in 2018 EF 17% -- had a stroke in 2020--> treated with TPA resulting in no deficits -- had clipping of MV in 02/18/24 for severe MR (more content not included)... [facility] 05-06-2024 Note HNO ID: [id number] Author: JORGE ENCISO RT(R) Service: ? Author Type: Technologist Type: Progress Notes Filed: 05/06/2024 17:01 Note Text: Radiology Service Progress Note PATIENT NAME: José Miguel Antonio Jr. DATE OF SERVICE: May 06, 2024 TIME: 5:01 PM PATIENT IDENTITY VERIFICATION COMPLETED USING TWO (2) IDENTIFIERS: Name and Date of confirmed by patient verbally and Name and Date of confirmed by identification band. FALL SCREENING: Has the patient had 2 falls in the last year or 1 fall with injury or currently using an Ambulatory Assistive Device (Walker, Cane, Wheelchair, Crutches, etc.)? Emergency Room Patient: Screened in ED PATIENT GENDER DATA: Male PATIENT RELEVANT IMPLANT DATA REVIEWED: Not Applicable PATIENT PRESENTS WITH AN IMPLANTABLE OR ATTACHED TURF AND GROUNDS SUPERVISOR: No RADIOLOGY DEPARTMENT: General X-ray: Exam(s) Completed: Chest X-Ray PERIPHERAL IV DATA: Not applicable SIGNED BY: RT Lisbet(R) May 06, 2024 5:01 PM [facility] 05-06-2024 Telephone encounter Note Patients daughter thinks he is on too many blood thinners, sob, doesn't go to cardiac rehab because he is too tired. Please call her at [phone] Charu. Thank you, Sandeep [facility] Work Phone: 04-30-2024 Note [facility] 04-30-2024 History of Presen t illness Narrative Summary: KCCQ-12 AMB TVT FOLLOWUP: Follow Up Type: Phone Call Call Attempt: Final Attempt Call Status: Patient Refused Patient answered call back and now states refusal. documented in this encounter [facility] 04-29-2024 Note [facility] 04-29-2024 History of Presen t illness Narrative Summary: KCCQ-12 AMB TVT FOLLOWUP: Follow Up Type: Phone Call Call Attempt: 1st Attempt Call Status: Left Message and Asked to be called back Patient returned call but asked for a call back tomorrow documented in this encounter [facility] 04-06-2024 Instructions Yung Andrade MD - 04/06/2024 3:28 PM EDT Advance Directives Every adult has the right to direct their own medical care. Having an advance directive on file helps to ensure that you receive the care you want if a medical condition or injury renders you unable to make decisions or communicate. Forms can be found on the [facility] Advance Directives site. You do not need a automobile seat cover installer to complete advance directive documents. [email or web address] [email or web address]-[email or web address] [email or web address]/[email or web address]-directives Talking about end-of-life issues is difficult, but it truly is a gift to your loved ones. We suggest using The Conversation Project (theBookMyForex.comationproject.org) to help guide you through discussing and thinking about your wishes/preferences, goals and values and completing your advance directive. After you complete the documents, talk to those people who may be involved with your healthcare decision making, and give them a copy of your forms to make sure your wishes are followed. Please bring a copy of your advance directive documents to your next appointment, or email to as an attachment in either PDF, TIFF, or JPEG format. You can also mail to: [facility] Health Information Management, [employer] Advance Directive Processing [id number] [place], [place] [address] documented in this encounter [facility] 04-06-2024 Telephone encounter Note Call to daughter EC Charu, no answer, LVM with return number. Geneva Lam RN April 06, 2024 11:25 AM [facility] 04-06-2024 Miscellaneous Notes Call to daughter EC Charu, no answer, LVM with return number. Geneva Lam RN April 06, 2024 11:25 AM Name of Caller: Charu Cain Relationship to patient: patient's daughter Reason for Call: Patient Daughter is calling just looking for clarification and new mediation instruction. Please reach out when available. Callback number: [phone] Janice Timmons documented in this encounter [facility] 04-03-2024 Telephone encounter Note Name of Caller: Charu Cain Relationship to patient: patient's daughter Reason for Call: Patient Daughter is calling just looking for clarification and new mediation instruction. Please reach out when available. Callback number: [phone] Janice Timmons [facility] 04-02-2024 Instructions Paulina Fernandes MD - 04/02/2024 10:23 AM EDT -Follow-up blood work 04/03 documented in this encounter [facility] 04-01-2024 Telephone encounter Note Unable To Reach Patient Patient appears on the PRO [place] Report for a PHQ-9 score of 11. Questionnaire was completed on 03/31. SW called and left a VM encouraging this Patient to kelsey back if additional support was desired. SW will remain available and will follow up as appropriate. MARIAM Ryder [facility] 04-01-2024 Miscellaneous Notes Unable To Reach Patient Patient appears on the PRO [place] Report for a PHQ-9 score of 11. Questionnaire was completed on 03/31. SW called and left a VM encouraging this Patient to kelsey back if additional support was desired. SW will remain available and will follow up as appropriate. MARIAM Ryder documented in this encounter [facility] 03-31-2024 Note [facility] 03-31-2024 History of Presen t illness Narrative Answers submitted by the patient for this visit: Review of Systems Heart Failure (Submitted on 03/31/2024) Fever : No Recent unintentional weight change: No Vision Disturbance: No Hearing Loss: No A cough: No Difficulty Breathing?: No Chest pain: No Leg Swelling: Yes Skipping or irregular heartbeats?: No Feel like passing out?: No Black tarry stools: No Nausea: No Diarrhea: No Difficulty Urinating?: No Joint pain or stiffness: No Muscle aches: No [facility] [place] Department of Cardiovascular Medicine VIRTUAL VIDEO VISIT ESTABLISHED OUTPATIENT VISIT SERVICE DATE: 03/31/2024 Patient: José Miguel Juarez Paco Rose SERVICE TIME: 3:55 PM : 1940 This is a virtual video visit. It required patient-provider interaction for the medical decision making as documented below. José Miguel Antonio Jr. has consented to this video encounter. I have communicated my name and active licensure. The patient's identity and physical location were verified at the time of this visit. Either the patient or their legal accounting representative has been informed of the risks and benefits of -- and alternatives to -- treatment through a remote evaluation and consents to proceed with the evaluation remotely. José Miguel Antonio Jr. is a 84 year old male seen for follow-up. CHIEF COMPLAINT FMR, HFrEF HISTORY OF PRESENT ILLNESS José Miguel Antonio Jr. is a 84 year old male post AZAEL MV thrombus noted. Started Xarelto. Increased lasix. 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) 09/03/2022 Dyslipidemia GERD (gastroesophageal reflux disease) Heart failure, acute systolic ([facility]) Hypertension Hypothyroid Myocardial infarct, old Occlusion and stenosis of carotid artery without mention of cerebral infarction Prostate cancer ([facility]) 2020 PVD (peripheral vascular disease) ([facility]) 11/17/2012 Stroke (cerebrum) ([facility]) 09/03/2022 Systolic heart failure ([facility]) Thyroid disorder 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 kidney disease, unspecified CKD stage, unspecified whether snf insulin use ([facility]) 04/26/2023 Ventricular tachycardia ([facility]) 04/28/2012 PAST SURGICAL HISTORY Procedure Laterality [...] Artery Disease Father Heart Attack Father fatal [place] at age 77 Ischemic Heart Disease Brother CABGx6 first at age 72 No Known Problems Maternal Grandmother No Known Problems Maternal Grandfather No Known Problems Paternal Grandmother No Known Problems Paternal Grandfather No Known Problems Daughter No Known Problems Daughter No Known Problems Daughter other (Other) Other paternal cousin at age 50 of [place] Social History Tobacco Use Smoking status: Former Packs/day: 1.00 Years: 10.00 Additional pack years: 0.00 Total pack years: 10.00 Types: Cigarettes, Pipe Quit date: 04/28/1982 Years since quittin.9 Passive exposure: Never Smokeless tobacco: Never Vaping Use Vaping Use: Never used Substance Use Topics Alcohol use: Yes Comment: rarely Drug use: Never ALLERGIES Allergen Reactions Latex Rash Adhesive Tape (Keyanna* Rash CURRENT MEDICATIONS aspirin 325 mg tablet Take 1 tablet by mouth once daily. clopidogrel (PLAVIX) 75 mg tablet Take 1 tablet by mouth once daily for 26 doses. Patient should start on March 06, 2024. furosemide (LASIX) 40 mg tablet Take 1 tablet by mouth once daily. metoprolol succinate ER (TOPROL XL) 25 mg 24 hr tablet Take 1 tablet by mouth once daily. dapagliflozin propanediol (FARXIGA) 10 mg tablet Take 10 mg by mouth daily with breakfast. Cholecalciferol, Vitamin D3, 25 mcg (1,000 unit) cap Take 1,000 Units by mouth as needed. nitroglycerin sublingual (NITROQUICK) 0.4 mg SL tablet as directed. (Patient not taking: Reported on 03/30/2024) NUTRITION ASSOCIATE THYROID 15 mg tablet Take 15 mg by mouth once daily. ezetimibe (ZETIA) 10 mg tablet Take 10 mg by mouth once daily. ubidecarenone Q-10 (COENZYME Q-10) 10 mg cap Take 10 mg by mouth once daily. thyroid, pork, 60 mg tablet Take 60 mg by mouth once daily. atorvastatin (LIPITOR) 40 mg tablet Take 40 mg by mouth daily at bedtime. REVIEW OF SYSTEMS: See above PHYSICAL EXAMINATION: VIDEO EXAM: (if completed, performed via video enabled technology) GENERAL: alert and appropriate, in no distress, well-hydrated, well nourished, and happy, smiling, interactive PATIENT ENTERED QUESTIONNAIRE SCORES ALERT: PHQ-9 Score: 11 indicates Moderate to Severe Depression 03/31/2024 03/18/2024 PHQ-9 Score 11 14 03/18/2024 10/02/2022 PROMIS Global Health - (T-Scores - the mean of general population = 50. Five points is a clinically meaningful difference.) Physical T-Score 42.3 47.7 Mental T-Score 36.3 36.3 ASSESSMENT: 83 y/o M history of severe functional [...] profile with NTproBNP of 19,000 (predominantly left-sided). AZAEL. Post op notable for Afib and amaurosis fugax of the left eye for which he underwent left carotid stenting #Severe FMR #ICM s/p DC-ICD (in 2018) [...] Target weight: 166 Etiology: ischemic, valvular (FMR) PLAN (Active Outpatient Problems): -Follow-up blood work 04/03 -increased PO diuretics to help leg swelling through end of week I personally spent 42 minutes in total time involved in the management and care of this patient. Paulina Fernandes MD March 31, 2024 3:55 PM documented in this encounter [facility] 03-31-2024 History of Presen t illness Narrative Radiation Oncology - Follow Up Note PATIENT NAME: José Miguel Antonio Jr. 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 RADIATION SUMMARY: DATES OF TREATMENT: 10/23/2021 to 12/18/2021 AREA TREATED: Pelvis Prostate DELIVERED DOSE: Area: Pelvis Prostate 4,600 cGy in 23 fractions, 3 Novak, IMRT, 10MV with daily CBCT Area: Pelvis Prostate Boost 3,200 cGy in 16 fractions, 2 Novak, IMRT, 10MV with daily CBCT TOTAL: 7,800 cGy in 39 Fractions ELAPSED TIME: 56 days. INTERVAL HISTORY: Patient underwent recent mitral valve repair. Doing fairly well. Also had an event in which she had questionable left vision loss, this is subsequently resolved. Workup unremarkable. Denies any bladder or bowel related changes or problems. LABORATORY: Latest Reference Range & Units 03/24/24 13:05 Testosterone 240 - 950 ng/dL 80 (L) Testosterone Free 2.88 - 10.5 ng/dL 1.46 (L) (L): Data is abnormally low PSA HISTORY: PSA (ng/mL) Date Value 03/24/2024 <0.02 09/24/2023 <0.02 03/26/2023 <0.02 04/19/2022 <0.02 11/09/2021 0.16 09/05/2021 36.20 PSA. (no units) Date Value 09/12/2022 <0.13 10/21/2018 12.30 ALLERGIES Allergen Reactions Latex Rash Adhesive Tape (Keyanna* Rash aspirin 325 mg tablet Take 1 tablet by mouth once daily. clopidogrel (PLAVIX) 75 mg tablet Take 1 tablet by mouth once daily for 26 doses. Patient should start on March 06, 2024. furosemide (LASIX) 40 mg tablet Take 1 tablet by mouth once daily. metoprolol succinate ER (TOPROL XL) 25 mg 24 hr tablet Take 1 tablet by mouth once daily. dapagliflozin propanediol (FARXIGA) 10 mg tablet Take 10 mg by mouth daily with breakfast. Cholecalciferol, Vitamin D3, 25 mcg (1,000 unit) cap Take 1,000 Units by mouth as needed. nitroglycerin sublingual (NITROQUICK) 0.4 mg SL tablet as directed. (Patient not taking: Reported on 03/30/2024) NUTRITION ASSOCIATE THYROID 15 mg tablet Take 15 mg by mouth once daily. ezetimibe (ZETIA) 10 mg tablet Take 10 mg by mouth once daily. ubidecarenone Q-10 (COENZYME Q-10) 10 mg cap Take 10 mg by mouth once daily. thyroid, pork, 60 mg tablet Take 60 mg by mouth once daily. atorvastatin (LIPITOR) 40 mg tablet Take 40 mg by mouth daily at bedtime. REVIEW OF SYSTEMS: D/N = 4-5/1-2 Hematuria: none Dysuria: none Incontinence: none Urgency: mild Catheter use: none Medications to aid urination: no - Total AUA Score: 5 Bowel movement frequency: 1/day Bowel movement quality: normal Blood per rectum: none Last colonoscopy: na Androgen deprivation:previous Lupron/Casodex last dose 09/13/21 PHYSICAL EXAM: There were no vitals taken for this visit. KPS: 100 General Appearance: Alert and oriented. No acute distress. Neck supraclavicular and axillary area without lymphadenopathy rectal exam is deferred. 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 Status post pelvic and prostate radiation with ADT with Lupron and Casodex x 6 months. 1. Prostate cancer doing well, PSA remains undetectable. No significant posttreatment problems. Recommend repeat PSA in 6 months. 2. Low testosterone likely related to prior ADT with incomplete recovery. Given PSA greater than 30 at presentation and despite excellent and durable PSA response to be reluctant to supplement testosterone at this time. Signed by: Yung Andrade MD cc: Samm Thompson MD [address] [place] [address] documented in this encounter [facility] 03-31-2024 Note [facility] 03-31-2024 Nurse Note AUA= 5 [facility] 03-31-2024 Nurse Note AUA= 5 documented in this encounter [facility] 03-30-2024 Telephone encounter Note March 30, 2024 Patient Contact Number: [phone] Patient last seen within the last year: Yes Date of last office visit: 03/30/2024 Reason For Call: PT requested Patient Enrollment Form be filled out for Xarelto approval. Form has been scanned and uploaded. Physician: Efren Brady MD Patient was informed that non-urgent calls may be returned within the next three business days. Yes Sandy Sales [facility] 03-30-2024 Miscellaneous Notes March 30, 2024 Patient Contact Number: [phone] Patient last seen within the last year: Yes Date of last office visit: 03/30/2024 Reason For Call: PT requested Patient Enrollment Form be filled out for Xarelto approval. Form has been scanned and uploaded. Physician: Efren Brady MD Patient was informed that non-urgent calls may be returned within the next three business days. 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) 09/03/2022 Dyslipidemia GERD (gastroesophageal reflux disease) Heart failure, acute systolic (HCC) Hypertension Hypothyroid Myocardial infarct, old Occlusion and stenosis of carotid artery without mention of cerebral infarction Prostate cancer (HCC) 2020 PVD (peripheral vascular disease) ([facility]) 11/17/2012 Stroke (cerebrum) ([facility]) 09/03/2022 Systolic heart failure (HCC) Thyroid disorder 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 kidney disease, unspecified CKD stage, unspecified whether snf insulin use ([facility]) 04/26/2023 Ventricular tachycardia ([facility]) 04/28/2012 Surgical History: PAST SURGICAL HISTORY Procedure [...] Artery Disease Father Heart Attack Father fatal [place] at age 77 Ischemic Heart Disease Brother CABGx6 first at age 72 No Known Problems Maternal Grandmother No Known Problems Maternal Grandfather No Known Problems Paternal Grandmother No Known Problems Paternal Grandfather No Known Problems Daughter No Known Problems Daughter No Known Problems Daughter other (Other) Other paternal cousin at age 50 of [place] Social History: Social History Tobacco Use Smoking status: Former Packs/day: 1.00 Years: 10.00 Additional pack years: 0.00 Total pack years: 10.00 Types: Cigarettes, Pipe Quit date: 04/28/1982 Years since quittin.9 Passive exposure: Never Smokeless tobacco: Never Vaping Use Vaping Use: Never used Substance Use Topics Alcohol use: Yes Comment: rarely Drug use: Never Allergies: ALLERGIES Allergen Reactions Latex Rash Adhesive Tape (Keyanna* Rash Current Medications aspirin 325 mg tablet Take 1 tablet by mouth once daily. clopidogrel (PLAVIX) 75 mg tablet Take 1 tablet by mouth once daily for 26 doses. Patient should start on March 06, 2024. furosemide (LASIX) 40 mg tablet Take 1 tablet by mouth once daily. metoprolol succinate ER (TOPROL XL) 25 mg 24 hr tablet Take 1 tablet by mouth once daily. dapagliflozin propanediol (FARXIGA) 10 mg tablet Take 10 mg by mouth daily with breakfast. Cholecalciferol, Vitamin D3, 25 mcg (1,000 unit) cap Take 1,000 Units by mouth as needed. nitroglycerin sublingual (NITROQUICK) 0.4 mg SL tablet as directed. NUTRITION ASSOCIATE THYROID 15 mg tablet Take 15 mg by mouth once daily. ezetimibe (ZETIA) 10 mg tablet Take 10 mg by mouth once daily. ubidecarenone Q-10 (COENZYME Q-10) 10 mg cap Take 10 mg by mouth once daily. thyroid, pork, 60 mg tablet Take 60 mg by mouth once daily. atorvastatin (LIPITOR) 40 mg tablet Take 40 mg by mouth daily at bedtime. Physical Exam BP 125/69 Pulse 66 Ht 193 cm (6' 4 ) Wt 77.1 kg (170 lb) BMI 20.69 kg/m General: cooperative, in no acute distress. HEENT: Normocephalic. No masses, lesions. Conjunctivae/corneas clear. Skin: color, texture, turgor normal. No rashes or lesions. Neck: Supple, no JVD, no carotid bruits. Lungs: Clear to auscultation bilaterally. No wheezing or rhonchi . Heart: Regular, normal S1 and S2, no murmurs rubs or gallops, normal PMI. Abdomen: Soft, non-tender. Extremities: No peripheral edema bilaterally. Distal pulses present bilaterally. Neuro: Oriented x3, alert, cooperative, No focal deficits. Psych: Pleasant; affect, mood and behavior appropriate. ECG, Labs and Imaging tests were reviewed. Last ECHO Result Conclusion ECHO Collected: 2024 10:11 AM (Final result) Impression: CONCLUSIONS: - Exam indication: S/P MV clip - The left ventricle is severely dilated. Left ventricular systolic function is severely decreased. EF = 28 5% (2D biplane) - The right ventricle is normal in size. Right ventricular systolic function is normal. - The left atrial cavity is severely dilated. - Post mitral valve repair with 1 clip. There is mild (1+) mitral valve regurgitation. The peak gradient is 4 mmHg and the mean gradient is 1 mmHg. S/P G4 XT mitral valve clip, current gradients measured at a HR of 74 bpm. - Residual iatrogenic left to right interatrial shunt on color doppler. - Exam was compared with the prior echocardiographic exam performed on 02/05/2024. Similar findings. * * * Final * * * Last MERRITT Result Conclusion No resulted procedures found. Last EKG Result Conclusion ECG COMPLETE Collected: 03/01/2024 11:29 PM (Final result) Impression: SINUS RHYTHM WITH OCCASIONAL ATRIAL-PACED COMPLEXES AND PREMATURE ATRIAL COMPLEXES MINIMAL VOLTAGE CRITERIA FOR LVH, MAY BE NORMAL VARIANT ABNORMAL ECG Confirmed by MD JIMÉNEZ TAMANNA ([id number]) on 03/05/2024 11:10:51 AM Prior records were also reviewed. IMPRESSION and PLAN: 84 year old here for follow up after AZAEL. Post op notable for Afib and amaurosis fugax of the left eye for which he underwent left carotid stenting Has ICM s/p DC-ICD (in 2018), prior CABG (in 2011, with cath in 2021 with patent OTTO-LAD and SVG to OM, with occluded VG to PDA), prior stroke in 2020 s/p tPA (no deficits) on Eliquis, COPD (remote smoker), CKD (crea ~ 1.5-2.0), and right CEA (2012) He reports feeling better. Though he complains being more volume overloaded. He was on Lasix and Spironolactone - the latter has been stopped due to kidney dysfunction. Will repeat BMP today and he will continue to follow with Dr. Fernandes. I have suggested increasing the Lasix to twice daily. He follows with a fox farmer locally but would prefer to have one. I have placed a referral. Efren Brady MD, [facility] customer services coordinator, [facility] Staff, Section of Cardiovascular Imaging Department of Cardiovascular Medicine [facility] [place] [facility] ADDENDUM: Echo reviewed. There is new echodensity in the posterior LV suspicious for LV thrombus. Discussed findings with patient and daughter. He will be starting Xarelto tomorrow as per neurosx recommendations. He knows that he needs a repeat echo in a month or two. He prefers to do it locally and will share the results with us Efren Brady MD, [facility] Staff, Section of Cardiovascular Imaging Department of Cardiovascular Medicine [facility] [place] [facility] documented in this encounter [facility] 03-30-2024 Note [facility] 03-18-2024 History of Presen t illness Narrative Images from the original note were not included. [facility] Virtual Visit Consultation is requested by: No referring provider defined for this encounter. PCP: Samm Thompson [address] [place] [address] CEREBROVASCULAR HISTORY José Miguel Antonio Jr. is a 84 year old male. Stroke Event Information [facility] 03/01/24-03/05/24 84M with a PMHx of asymptomatic critical right carotid artery stenosis s/p R CEA in 2011, progressive asymptomatic L carotid artery stenosis, stroke in 2020 (right insula) without residual deficits, recent onset Afib on Xarelto, CAD s/p CABG, ischemic HFrEF s/p ICD in 2018, COPD, former smoker, who presented to the [facility] ED on 02/26/24 with acute flashing lights in the left eye followed by complete blindness for 2-3 minutes that spontaneously resolved. Imaging at [place] included CTH showing Probable right parietal low-attenuation within the deep white matter extending to the cortex. I favor a subacute or chronic infarct. This represents change from prior study. CTA H/N showed, severe hemodynamically significant stenosis of the left internal carotid artery origin similar prior examination with estimated stenosis of 99% . Patient subsequently transferred to [facility] under Stroke Neurology for further workup and management of suspected symptomatic L ICA with critical stenosis. Upon arrival to [facility] R[facility], patient was HDS and NIH 0. He denied any recurrence of vision loss since initial presentation, and denied any other new or worsenings symptoms. Patient placed on heparin gtt in place of his home Xarelto for his Afib and started on rosuvastatin 20mg. He was evaluated by ophthalmology to obtain a baseline exam. TCD emboli performed showed 5 embolic events in b/l MCAs over 30 minutes. Carotid US showed 1-29% MELIA stenosis and 70-99% LICA stenosis. MRI brain showed no acute stroke. NSGY consulted and recommended ADRIAN over CEA d/t his low EF (28%). IR team contacted about ADRIAN, procedure performed on 03/04 to LICA after loading with DAPT. Patient started on maintenance DAPT x4 weeks and Xarelto d/c'd. Once 4 weeks of DAPT completed, can d/c Plavix and restart Xarleto. CUS performed on L carotid artery s/p stent showing patent stent with 1-29% stenosis in LICA. Virtual Visit 03/18/24 Patient presents for hospital discharge follow up. Patient denies any new or worsening signs or symptoms of stroke. Patient denies any one sided weakness, facial droop, changes in speech or vision. Patient is taking all medications as prescribed. Blood pressure has been controlled, on the lower side Discharged with no needs Transient visual loss in the setting of symptomatic LICA stensosis s/p stent The patient understands the discussed etiology of stroke with further risk factor management for secondary stroke prevention. Patient states he is trying to et into cardiac rehab, has close follow up with cardiology. I have communicated my name and active licensure. The patient's identity and physical location were verified at the time of this visit. Either the patient or their legal accounting representative has been informed of the risks and benefits of -- and alternatives to -- treatment through a remote evaluation and consents to proceed with the evaluation remotely. 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 ([facility]) 09/03/2022 Dyslipidemia GERD (gastroesophageal reflux disease) Heart failure, acute systolic ([facility]) Hypertension Hypothyroid Myocardial infarct, old Occlusion and stenosis of carotid artery without mention of cerebral infarction Prostate cancer ([facility]) 2020 PVD (peripheral vascular disease) ([facility]) 11/17/2012 Stroke (cerebrum) ([facility]) 09/03/2022 Systolic heart failure ([facility]) Thyroid disorder 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 kidney disease, unspecified CKD stage, unspecified whether snf insulin use ([facility]) 04/26/2023 Ventricular tachycardia ([facility]) 04/28/2012 PAST SURGICAL HISTORY Procedure Laterality [...] Artery Disease Father Heart Attack Father fatal [place] at age 77 Ischemic Heart Disease Brother CABGx6 first at age 72 No Known Problems Maternal Grandmother No Known Problems Maternal Grandfather No Known Problems Paternal Grandmother No Known Problems Paternal Grandfather No Known Problems Daughter No Known Problems Daughter No Known Problems Daughter other (Other) Other paternal cousin at age 50 of [place] Social History Tobacco Use Smoking status: Former Packs/day: 1.00 Years: 10.00 Additional pack years: 0.00 Total pack years: 10.00 Types: Cigarettes, Pipe Quit date: 04/28/1982 Years since quittin.9 Passive exposure: Never Smokeless tobacco: Never Vaping Use Vaping Use: Never used Substance Use Topics Alcohol use: Yes Comment: rarely Drug use: Never MEDICATIONS Current Outpatient Medications Medication Sig aspirin 81 mg chewable tablet Take 4 tablets by mouth once daily for 26 doses. clopidogrel (PLAVIX) 75 mg tablet Take 1 tablet by mouth once daily for 26 doses. Patient should start on March 06, 2024. furosemide (LASIX) 40 mg tablet Take 1 tablet by mouth once daily. metoprolol succinate ER (TOPROL XL) 25 mg 24 hr tablet Take 1 tablet by mouth once daily. dapagliflozin propanediol (FARXIGA) 10 mg tablet Take 10 mg by mouth daily with breakfast. Cholecalciferol, Vitamin D3, 25 mcg (1,000 unit) cap Take 1,000 Units by mouth as needed. nitroglycerin sublingual (NITROQUICK) 0.4 mg SL tablet as directed. NUTRITION ASSOCIATE THYROID 15 mg tablet Take 15 mg by mouth once daily. ezetimibe (ZETIA) 10 mg tablet Take 10 mg by mouth once daily. ubidecarenone Q-10 (COENZYME Q-10) 10 mg cap Take 10 mg by mouth once daily. thyroid, pork, 60 mg tablet Take 60 mg by mouth once daily. atorvastatin (LIPITOR) 40 mg tablet Take 40 mg by mouth daily at bedtime. No current facility-administered medications for this visit. ALLERGIES ALLERGIES Allergen Reactions Latex Rash Adhesive Tape (Keyanna* Rash PHYSICAL EXAMINATION There were no vitals taken for this visit. General: Well-developed, well-nourished, in no acute distress. HEENT: Normocephalic, atraumatic. Sclerae anicteric. Oropharynx clear. Neck: No carotid bruit. Heart: Regular rate and rhythm, S1 S2, no murmurs. Lungs: Clear to auscultation bilaterally. Abdomen: Abdomen soft, non-tender. Bowel sounds normal. No masses, organomegaly. Extremities: No edema, cyanosis, or clubbing. 2+ dorsalis pedis pulses bilaterally. Skin: No rash or ecchymoses. Neurological: Awake, alert, oriented to person, place, and time. Speech fluent, no dysarthria. Naming, repetition, recall, comprehension, calculation intact. Good attention and insight into illness. Cranial Nerves: PERRL, extraocular movements intact without nystagmus. Visual novak full. Fundoscopic examination normal with sharp optic discs bilaterally. Facial sensation and movements normal and symmetric. Palate elevates equal bilaterally. Tongue midline. Trapezius strength 5/5 bilaterally. Motor: Normal bulk and tone. Strength 5/5 throughout. No pronator drift or tremor. Sensation: Intact light touch, pinprick, temperature, proprioception, and vibration. Coordination: Rapid alternating movements symmetric bilaterally. [id number]-[id number], [id number] without dysmetria bilaterally. Reflexes: 2+/4 reflexes symmetric bilaterally. Plantar response is flexor bilaterally. Gait: Narrow-based, normal spaced and stable without assistance. Tandem gait is stable. LABS Cholesterol: Cholesterol, Total (mg/dL) Date Value 01/15/2022 155 06/19/2019 130 Total Cholesterol, Nonfasting (mg/dL) Date Value 02/16/2024 118 LDL Cholesterol (mg/dL) Date Value 06/19/2019 68 LDL Cholesterol, Nonfasting (mg/dL) Date Value 02/16/2024 75 HDL Cholesterol (mg/dL) Date Value 01/15/2022 53 06/19/2019 52 HDL Cholesterol, Nonfasting (mg/dL) Date Value 02/16/2024 28 Triglyceride (mg/dL) Date Value 01/15/2022 46 06/19/2019 48 Triglycerides, Nonfasting (mg/dL) Date Value 02/16/2024 74 Diabetes: Hemoglobin A1C (%) Date Value 02/16/2024 6.1 11/16/2012 5.7 IMAGING MRI: No acute stroke Transcranial Doppler: 5 embolic events b/l MCAs Carotid Ultrasound: 1-29% stenosis MELIA and 70-99% stenosis LICA Angiography: with LICA stenting done 03/04 EKG: Sinus rhythm with occasional atrial-paced complexes and PACs Patient Entered Questionnaires PROMIS/NeuroQoL Score Percentiles 10/02/2022 PROMIS Global Health Scale Physical Health Percentile 41 Mental Health Percentile 9 Percentiles provide an indication of how a patient's score ranks in relation to the [place] general population. > 31st percentile is within normal limits or better * < 31st percentile is at least SD worse than population, which may be clinically relevant < 16th percentile is at least 1 SD worse than population and warrants attention Depression Screening: PHQ-9 Scores: PHQ-9 Self-Harm (Item 9) Response: 0 - 9 No to Mild depression 0 - Not at all 10 - 14 Moderate depression 1 - Several Days > 15 Severe depression 2 - More than half the days 3 - Nearly every day 03/02/2024 Sleep Apnea Probability Score Probability (%) 56 (Recommend sleep study) Stroke Mechanism and Scales IMPRESSION Transient flashing lights and vision loss I the left eye lasting about 2-3 minutes with full resolution. Vessel imaging significant for LICA stenosis 99 %. 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 S/p LICA stent placed. DAPT with Aspirin 325 mg and Plavix 75 mg x4 weeks and Xarelto held. Once 4 weeks of DAPT completed, can d/c Plavix and restart Xarleto. Atrial fibrillation, Xarelto Hyperlipidemia, LDL 75 Hypertension, blood pressure controlled PLAN Continue Aspirin 325 and Plavix daily for secondary stroke prevention. Discontinue Plavix and restart Xarelto after 4 weeks (April 01). Continue Atorvastatin for secondary stroke prevention and LDL goal below 70. Continue monitoring blood pressure for goal below 130/80. Carotid US in 6 months with office visit to follow. Medical Decision Making: Medical Decision Making Level: 1 - N/A I spent a total of 40 minutes on the date of service which included preparing to see the patient, completing clinical documentation, obtaining and/or reviewing separately obtained history, performing a medically appropriate examination, counseling and educating the patient/family/caregiver, ordering medications, tests, or procedures, communicating with other HCPs (not separately reported), independently interpreting results (not separately reported), communicating results to the patient/family/caregiver, and care coordination (not separately reported) SIGNATURE Luís Skinner APRN.[employer] No referring provider defined for this encounter. Samm Thompson [address] [place] [address] documented in this encounter [facility] 03-18-2024 Note [facility] 03-06-2024 Note [facility] 03-06-2024 History of Presen t illness Narrative [facility] Title Supervisor Transitional Care Management Phone Call A transitional care management phone call was conducted today with José Miguel Antonio Jr. after recent hospital discharge on 03/05/2024 for TIA (transient ischemic attack) . The goal of this visit is to review patient progress, confirm appointments, pending tests, review medications, and answer questions related to patient transition out of the hospital. Red Flags: Since hospital discharge are your symptoms better, worse, or the same? Better Do you have any new or different symptoms such as disabling weakness, change in vision, balance, sensation, speech or language? No Pending Tests and Appointments: Appointments: Appointments for Next 60 Days Date Time Provider Location Dept Phone 03/11/2024 11:20 AM CHARU KINCAID [facility] [phone] 03/18/2024 2:05 PM LUÍS SKINNER [place] F [phone] 03/24/2024 1:00 PM LAB [facility] [phone] 03/30/2024 1:30 PM [id number] Karina [facility] [phone] 03/30/2024 2:00 PM IMAGING CLINICIAN Manolo Collins [facility] [phone] 03/30/2024 2:30 PM EFREN BRADY [facility] [phone] 03/30/2024 3:30 PM ECHO J1-[address] Karina [facility] [phone] 03/31/2024 1:15 PM Yung ANDRADE [facility] [phone] 03/31/2024 1:30 PM [facility] [phone] Reviewed and patient plans on attending appointment. - this will be a virtual appointment Labs: Not applicable. Imaging: Not applicable Medications: Do you have questions or concerns about your medication? No Do you have all your medications? Yes Are you experiencing any side effects to your medications? No Questions: The patient had No questions at the end of the call. Ema Lyn RN Nurse Title Supervisor, [facility] March 06, 2024 11:58 AM documented in this encounter [facility] 03-05-2024 Note [facility] 03-05-2024 Note [facility] 03-04-2024 Note [facility] 03-04-2024 Note [facility] 03-04-2024 Note [facility] 03-04-2024 Note [facility] 03-04-2024 Note [facility] 03-04-2024 Note [facility] 03-03-2024 Note [facility] 03-03-2024 Note HNO ID: [id number] Author: TREVOR MENDOSA RN Service: Nursing Author Type: Registered Nurse Type: Nursing Progress Note Filed: 03/03/2024 06:45 Note Text: [id number]: CMU alert for pt having 11 beats of V.Tach. NSGY BEV Katz notified [facility] 03-02-2024 Note Date of Procedure 03/02/2024. Gas Appliance Mechanic Information Sterile Process Coordinator: GABI. Start time: 2:50 PM. Stop time: 2:57 PM. Patient is ok with testing with one more person Patient is not allergic to adhesive. Reliability Right Eye Good. Left Eye Good. Notes Inf defect OU does not follow midline ZEISS 03-02-2024 Note [facility] 03-02-2024 History of Presen t illness Narrative SDA; inpt consult Cerebrovascular acci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) PMH ocular migraines, ischemic stroke '21 (no deficit), asymptomatic R carotid stenosis (s/p R CEA '12), HTN, CAD/MT s/p CABG, HFrEF (LVEF 28% 02/19/24), severe MR (02/15/24-02/19/24 admission for MVR) , Atrial fibrillation (on rivaroxaban), PVD, COPD, remote TOB (<20 years), T2DM, CKD, prostate CA, hypothyroidism 02/26/24 admission with OS amaurosis fugax transferred to F 03/02 for further care. Neurosurgery is consulted for carotid revascularization. Patient states he was watching TV on 02/25 when he noted squiggles in his field of vision that progressed to vision loss. Per report, vision loss lasted x 2 minutes and self-resolved. He presented to OSH ([place], [place]). CTH negative for acute findings, but CTA demonstrated high grade MLEIA stenosis. He was initiated on heparin infusion and transferred to [facility] for further care. US carotid on admission demonstrates MELIA stenosis 70-99%. Patient also had + TCD emboli monitoring (5MEEs) in [facility]. - VISUAL FIELD 24-2 OU (BOTH EYES): reliable OU Inf defect OU does not follow midline Dilated exam (-)plaque OU Cataract, nuclear sclerotic senile, bilateral - visually significant Continue to follow with inpt team as directed I have confirmed and edited as necessary the relevant ophthalmic history, ROS, and the exam findings as obtained by others. I have seen and examined this patient. I have discussed the case and the management of this patient's care with the resident or fellow as appropriate. I also have reviewed and agree with the assessment and plan as stated above and agree with all of its relevant components. Patient reports understanding. Susi Whitehead OD documented in this encounter [facility] 03-02-2024 Note [facility] 03-02-2024 Note [facility] 03-02-2024 Note [facility] 03-02-2024 Note [facility] 02-28-2024 Telephone encounter Note Called patients daughter. Unable to provide timing on a bed, but provided therapeutic communication. Charu has no further questions at this time. Consuelo Gambino RN [facility] 02-28-2024 Miscellaneous Notes Called patients daughter. Unable to provide timing on a bed, but provided therapeutic communication. Charu has no further questions at this time. Consuelo Gambino, RN CV PHONE Name of caller : Charu Relationship to patient : Daughter If not self Will need patient permission to release results or disclose health information with called documented in fyi. Patient identified by Name and Date of . ( José Miguel Hudsoncarter Rose, 1940). Yes Number to return call [phone] Reason for Call: Patient Question/Update: Patient's daughter would like to know the status of her dad preadmission details. Daughter states patient has been waiting since February 26. Please call her at the above number. Thank you calling [facility]. You will receive a return call within 48 hours ( or 2 business days if close to the weekend). If you feel that this is an urgent issue and needs immediate attention, it is recommended that you contact your primary care provider office or proceed to your nearest Urgent Care Center of Emergency Room ED for evaluation/treatment. documented in this encounter [facility] 02-28-2024 Telephone encounter Note CV PHONE Name of caller : Charu Relationship to patient : Daughter If not self Will need patient permission to release results or disclose health information with called documented in fyi. Patient identified by Name and Date of . ( José Miguel Hudsoncarter Rose, 1940). Yes Number to return call [phone] Reason for Call: Patient Question/Update: Patient's daughter would like to know the status of her dad preadmission details. Daughter states patient has been waiting since February 26. Please call her at the above number. Thank you calling [facility]. You will receive a return call within 48 hours ( or 2 business days if close to the weekend). If you feel that this is an urgent issue and needs immediate attention, it is recommended that you contact your primary care provider office or proceed to your nearest Urgent Care Center of Emergency Room ED for evaluation/treatment. [facility] Work Phone: 02-27-2024 Telephone encounter Note Patient's daughter phoned. She stated that her father called earlier in the evening with stroke -like symptoms- loss of vision in one eye that returned, squiggley lines . He was taken to the ED and is in the observation unit. She would like him to be transferred to [facility] - told her to ask for a transfer. Shannon Mcnair APRN.VEGETABLE BUNCHER [facility] Work Phone: 02-27-2024 Miscellaneous Notes Patient's daughter phoned. She stated that her father called earlier in the evening with stroke -like symptoms- loss of vision in one eye that returned, squiggley lines . He was taken to the ED and is in the observation unit. She would like him to be transferred to [facility] - told her to ask for a transfer. Shannon Mcnair APRN.VEGETABLE BUNCHER documented in this encounter [facility] 02-27-2024 Note [facility] 02-27-2024 History of Presen t illness Narrative Vanesa Lozada Plan of Care Received a transfer request from [facility] in [facility] (not located in [facility]). Spoke to ED physician Dr. Guido for sign out. 84M with a PMHx of asymptomatic critical right carotid artery stenosis s/p R CEA in [address] Jefferson, progressive asymptomatic L carotid artery stenosis followed by Dr. Jefferson outpatient (notably had floaters but never vision loss), stroke in 2020 without residual deficits, Afib on Xarelto, CAD s/p CABG, ischemic HFrEF s/p ICD in 2019, COPD, former smoker, who presents to the [facility] ED with acute flashing lights in the left eye followed by complete blindness for several minutes that spontaneously resolved. Patient's current vitals: BP 126/82, RR 17, 94% on RA, HR 81, afebrile. ED reported NIH 0. CTH read as probable right parietal low-attenuation within the deep white matter extending tot he cortex. I favor a subacute or chronic infarct. This represents a change from prior study CTA read as severe hemodynamically significant stenosis of the left internal carotid artery origin similar prior examination with estimated stenosis of 99% As the patient's last dose of Xarelto was around 7 pm on Saturday 02/24, the OSH was planning on starting a heparin gtt in case the patient were to get carotid revascularization. I said this was reasonable as we do not have timing on beds at [facility] and he may be a CEA candidate. Notably recent TTE on 02/18 showed an EF of 28%, severely dilated LA, and mild MR post mitral valve clip and may make the adelina-operative cardiac risk high and thus favoring ADRIAN. Assessment: Probable TIA/amaurosis fugax. Alternatively, these symptoms could be related to Furlan sign (will need to ask about exposure to bright light prior to symptom onset). Suspected symptomatic critical L ICA stenosis, unclear if related to artery to artery embolism or hypoperfusion. Plan: - Level 1 transfer to [facility]. Asked the OSH to update us if there are any exam changes - Heparin gtt stroke normogram for Afib is reasonable until a plan for carotid revascularization is finalized - Asked OSH to push over images to us - Brain MRI - Consider ophtho consult to look for Hollenhorst plaques - Consider TCD emboli. - Consider CUS as a second imaging modality, although CUS in 2021 already showed 80-99% stenosis in the left ICA. - Consider neurosurgery consult for CEA vs ADRIAN. Or as the patient has been following with Dr. Jefferson outpatient, may be reasonable to consult vascular surgery depending on patient preferences. - May need cardiology consult if CEA is determined to be the better option for revascularization - Remainder of the plan can be finalized once patient arrives to [facility] Aravind Arriaga MD Vascular Neurology Fellow, PGY-5 Supervising stroke staff: Dr. Millard documented in this encounter [facility] 2024 Note HNO ID: [id number] Author: RAMONA MELVIN MD Service: Cardiovascular Medicine Author Type: Fellow Type: Progress Notes Filed: 03/05/2024 16:38 Note Text: Documentation Query Please clarify the Type Acuity of CHF: acute on chronic systolic CHF [facility] 2024 Note [facility] 2024 Note [facility] 2024 Note [facility] 2024 Note [facility] 2024 Note [facility] 2024 Note [facility] 02-18-2024 Note [facility] 02-18-2024 Note [facility] 02-18-2024 Note [facility] 02-18-2024 Note [facility] 02-17-2024 Note [facility] 02-17-2024 History of Presen t illness Narrative Images from the original note were not included. Head [facility] Neck [facility] CHIEF COMPLAINT: Dental clearance HISTORY OF PRESENT ILLNESS: José Miguel Antonio is a 83 year old male being seen for dental consultation at the request of Dr. Priscilla Rai prior to open-heart surgery. The patient's last dental visit was over ten years ago. He plans to establish care with a dentist following OHS. Pain:He denies odontalgia today. PROBLEM LIST: ACTIVE PROBLEM LIST Atherosclerotic Heart Disease of [place] Coronary Artery With Other Forms of Angina Pectoris ([facility]) SUMMARY Hyperlipidemia Preop Testing Heart Failure, Acute Systolic ([facility]) Carotid Stenosis Atrial Fib/Flutter, Transient Occlusion and Stenosis of Carotid Artery Without Mention of Cerebral Infarction S/P Cabg (Coronary Artery Bypass Graft) Sweating Coronary Artery Disease Involving Coronary Bypass Graft of [place] Heart Without Angina Pectoris Systolic Heart Failure ([facility]) Pvd (Peripheral Vascular Disease) ([facility]) Syncope Stroke (Cerebrum) ([facility]) Acute On Chronic Combined Systolic and Diastolic Congestive Heart Failure ([facility]) Carotid Stenosis, Asymptomatic, Bilateral Type 2 Diabetes Mellitus With Diabetic Chronic Kidney Disease, Unspecified Ckd Stage, Unspecified Whether Plastic Surgery Technician Insulin Use ([facility]) Malnutrition of Moderate Degree ([facility]) Stage 3b Chronic Kidney Disease ([facility]) Dyspnea, Unspecified Non-Rheumatic Mitral Regurgitation Severe Mitral Regurgitation CURRENT MEDICATIONS: Current Facility-Administered Medications on File Prior to Visit Medication ferric gluconate 250 mg in NaCl 0.9% 100 mL (FERRLECIT) heparin iv infusion 25,000 units in NaCl 0.45% 250 mL STROKE NOMOGRAM [START ON 02/18/2024] metoprolol tartrate (short acting) 12.5 mg tab(s) (LOPRESSOR) Chlorhexidine Gluconate 0.12 % 15 mL (PERIDEX) thyroid 75 mg tab(s) ipratropium-albuterol 3 mL nebulizer solution (DUONEB) NaCl 0.9% iv flush bag atorvastatin 40 mg tab(s) (LIPITOR) ezetimibe 10 mg tab(s) (ZETIA) furosemide 40 mg tab(s) (LASIX) aspirin, enteric coated 81 mg tab(s) acetaminophen 650 mg tab(s) (TYLENOL) Current Outpatient Medications on File Prior to Visit Medication Sig potassium chloride ER (KLOR-CON) 20 mEq tablet Take 1 tablet by mouth once daily. budesonide/formoterol fumarate (SYMBICORT INHALATION) Inhale 1 Inhalation as instructed two times a day. MAGNESIUM GLUCONATE ORAL Take 160 mg by mouth once daily. dapagliflozin propanediol (FARXIGA) 10 mg tablet Take 10 mg by mouth daily with breakfast. furosemide (LASIX) 40 mg tablet Take 40 mg by mouth two times a day. 40mg daily additional 40mg every other day in evening Cholecalciferol, Vitamin D3, 25 mcg (1,000 unit) cap Take 1,000 Units by mouth as needed. nitroglycerin sublingual (NITROQUICK) 0.4 mg SL tablet as directed. NUTRITION ASSOCIATE 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 aspirin, enteric coated (ASPIRIN, ENTERIC COATED) 81 mg EC tablet Take 1 tablet by mouth once daily. ezetimibe (ZETIA) 10 mg tablet Take 10 mg by mouth once daily. ubidecarenone Q-10 (COENZYME Q-10) 10 mg cap Take 10 mg by mouth once daily. thyroid, pork, 60 mg tablet Take 75 mg by mouth once daily. atorvastatin (LIPITOR) 40 mg tablet Take 40 mg by mouth daily at bedtime. ALLERGIES: ALLERGIES Allergen Reactions Latex Rash Adhesive Tape (Keyanna* Rash CLINICAL EXAMINATION: General appearance: alert, well hydrated, pleasant, no distress. Extraoral, Head and Neck exam: No extraoral swelling or erythema Parotid and submandibular glands soft, nonpainful to palpation bilaterally No lymphadenopathy V1, V2, V3, CN VII intact bilaterally Intraoral Soft Tissues: Clear saliva extruded from bilateral [place]'s and Sari's ducts. Tongue soft and non-tender with no apparent lesions. Buccal mucosa without lesions bilaterally. Hard palate is WNL. Soft palate is WNL. Pharynx is WNL. Floor of mouth is WNL. Gingival tissues are mildly erythematous and edematous.due to soft plaque accumulation. Dentition: Caries:#10 D, #23M/D #24 M/D #25 M/D #26M #27 M Retained root tips: #7 Pain to percussion: None Mobility: None Oral hygiene: poor. Radiographic examination: Panorex and 3 periapical x-rays of anterior teeth Generalized horizontal bone loss. No apical radiolucencies noted. Caries: #10,23,24,25,26,27 Retained root tip #10 for many years following extraction. - no acute or chronic apical periodontitis noted. ASSESSMENT: Examination of the oral cavity and dentition reveals multiple lower anterior caries (possibly restorable) and retained root tip #7 (for many years per patient) RECOMMENDATIONS: The patient is at low to moderate risk of perioperative complication from an oral health standpoint. Recommended extractions: Teeth #7- to be discussed with cardiac team and patient. Recommended debridement prior to surgery/transplant/head & neck radiation: NO Labs needed within 24 hours of dental procedure: yes, INR/Platelets Antibiotic pre-medication required: NO Suggested antibiotic regimen: none To be ordered by in-patient team: no Reason for pre-medication: none Discontinue IV heparin 6 hours prior to procedure. For single tooth extractions, platelets > 30K. For multiple extractions, platelets > 50K. Patient does NOT need to be NPO prior to extractions. Extractions will be done with local anesthesia.(Confirmed) Please call [phone] to schedule for tooth extractions once patient can be transported via wheelchair. Please note: There is no evidence of acute infection or swelling. Root tip #7 has been present for over ten years as per patient. Patient requested postponing the extraction of #7 root tip until after OHS. The procedure including risks, benefits, options and personnel performing the procedure was discussed with the patient. José Miguel Juarez Paco Rose expressed understanding and agreed to proceed. The opinions rendered will be communicated back to the referring provider via shared electronic medical record. Dior Nj DDS documented in this encounter [facility] 02-17-2024 Note [facility] 02-17-2024 Note [facility] 02-14-2024 Note [facility] 02-14-2024 History of Presen t illness Narrative Study name: [employer] Trial IRB# [id number] PI: Andrés Savage Pt exited from trial--plan for commercial treatment. Factory Expert: Krystal Richey Pager #: [phone] documented in this encounter [facility] 02-14-2024 Note [facility] 02-14-2024 History of Presen t illness Narrative I spoke with José Miguel Antonio And his daughter Charu on the phone. Direct admission to the hospital 02/14 in prep for M-AZAEL cowart MitraClip Dental clearance within last 6 months: to be completed inpatient KCCQ Survey Completed: to be done inpatient Surgeon note documented: to be completed inpatient No fasting is needed on pre-op day. Priscilla Rai APRN.VEGETABLE BUNCHER [facility]. Patient to be admitted prior on 02/14 and will remain in the house for the procedure. Please schedule José Miguel Antonio Jr., [id number] for Mitral Valve Transcatheter [id number] Repair (M-AZAEL) w/ Cowart MitraClip Procedure on: 02/18/[address] Structural lab schedule on : 02/18/24 at 10:30am CPT: 15710 Diag: I34.0 SALES AUDIT CLERK: Dr Brady Performing Physician: Dr rain OR: 83 1st Surgeon: TBKurtis MERRITT schedule- intra/op Patient also needs INSURANCE PRECERTIFICATION SURVIVAL RATE GREATER THAN 1 YEAR____yes___(LOOKING FOR A YES) EF ___20__ Thank-you. Request sent to scheduling. Priscilla Rai APRN.DOROTHY documented in this encounter [facility] 02-13-2024 Note [facility] 02-13-2024 History of Presen t illness Narrative Multidisciplinary Cardiac Team Review TRANSCATHETER MITRAL and TRICUSPID THERAPIES (TMTT) The below documentation is based on a mitral / tricuspid valve team discussion amongst the multidisciplinary team Attendees: Dr. Roland, Dr Mueller, Dr Anguiano, Dr Marr, Gianluca DE LA CRUZ, Dr Bruce, Dr Holcomb, Dr Brady, Dr Rain, Dr Ventura, Garry DE LA CRUZ, Dr Chaudhry, Dr Martinez, Dr Saravia, Dr Edmonds, Dr Mcmahon, Dr Lock, Freddie RN PATIENT NAME: José Miguel Antonio Jr. DATE: February 14, 2024 83 M Severe FMR ICM s/p DC-ICD (in 2018) CABG (in 2011, with cath in 2021 with patent OTTO-LAD and SVG to OM, with occluded VG to PDA) Prior stroke in 2020 s/p tPA (no deficits) on Eliquis COPD (remote smoker) CKD (crea ~ 1.5-2.0) Right CEA (2012) Team Members Seen/ Presenting Physician MR/TR Dr. Brady Reason: FMR HF: Dr. Fernandes CTS: None Discussion / recommendations: After review and discussion of patient presentation, the following thoughts / recommendations were made. MERRITT and LHC reviewed. Known ICM, sig MR, worsening NT pro. Nt pro BNP significantly increasing. GFR only slightly improved after stopping MRA. Does not qualify for empower carillon trial. Given worsening MR, renal fnx, and NT pro BNP the team recommends admission to the hospital followed by M-AZAEL with Cowart MitraClip. Recommend ENT consult--patient had traumatic (sore throat some bleeding hospital readmission) MERRITT in spring. Consider XR esophagram. Dental consult and CTS consult as well. Patient notified: This plan has been communicated with the patient and daughter (Charu) who verbalized understanding and is in agreement. Will admit directly 02/14. Inpatient team notified of POC. This abstract and interpretation of the conversations amongst the mitral / tricuspid MDT members has been completed by: Priscilla Rai APRN.CNP documented in this encounter [facility] 02-12-2024 Telephone encounter Note Attempted to contact daniel Box. Clinical has been discussed with Dr. Brady. Patient should be admitted to the hospital for optimization and reassess by ENT. Marce Arana APRN.CNS [facility] 02-12-2024 Miscellaneous Notes Attempted to contact daniel Box. Clinical has been discussed with Dr. Brady. Patient should be admitted to the hospital for optimization and reassess by ENT. Marce Arana APRN.CNS I spoke with daughter on the phone. She informed me that her father's appetite has also been declining. She convinced him to get an appointment with the PCP later today. I told her that if the physician recommends a visit to the ED or hospitalization, then this can be done locally vs. driving all the way here. However, she said that if this is a recommendation she will have him come to [place]. Unfortunately, based upon his symptoms, worsening MR on ECHO and increasing BNP, he may require admission for optimization. In the meantime will also try to obtain a sooner ENT consult. Marce Arana APRN.CNS Patients daughter called with concerns regarding the patient and the study that he is a part of. She would like to speak with you regarding her concerns, Daniel Box [phone]. Clover documented in this encounter [facility] 02-12-2024 Telephone encounter Note I spoke with daughter on the phone. She informed me that her father's appetite has also been declining. She convinced him to get an appointment with the PCP later today. I told her that if the physician recommends a visit to the ED or hospitalization, then this can be done locally vs. driving all the way here. However, she said that if this is a recommendation she will have him come to [place]. Unfortunately, based upon his symptoms, worsening MR on ECHO and increasing BNP, he may require admission for optimization. In the meantime will also try to obtain a sooner ENT consult. Marce Arana APRN.PARDEEP [facility] 02-12-2024 Telephone encounter Note Patients daughter called with concerns regarding the patient and the study that he is a part of. She would like to speak with you regarding her concerns, Daughter Charu [phone]. Clover T [facility] Work Phone: 02-12-2024 Note [facility] 02-12-2024 History of Presen t illness Narrative Clinical information has been reviewed. I spoke with him on the phone to understand symptoms. shortness of breath with exertion; some good days/bad days. He is planning to go to rehab to day to see how he does on the treadmill. No ED visits. He had an ECHO done on 02/05/2024: MITRAL VALVE There is severe (3+ - 4+) holosystolic mitral valve regurgitation due to apical tethering of normal mitral leaflet caused by LV enlargement. Regurgitant orifice area (PISA) is 0.41 cm . TRICUSPID VALVE The tricuspid valve leaflets are structurally normal. There is mild (1+) tricuspid valve regurgitation. Per Dr. Brady, patient requires an ENT consult as he had difficulty with MERRITT. This is scheduled for ( which was the first available that her could get). Will see if we can get a sooner appointment for him. Will await repeat labs since stopping his Aldactone. But if GFR remains low he will exclude from the clinical trial and will need to be assessed for AZAEL procedure. I told him that we will follow-up again with him in the next couple of days. Marce Arana APRN.PRESS MANAGER documented in this encounter [facility] 02-11-2024 Telephone encounter Note Study name: [facility] Trial IRB# [id number] PI: Andrés Savage Pt's gfr dropped--spoke to Dr. Fernandes. Plan for med changes with f/u labs this Saturday. Spoke with pt's daughter. Plan to pause trial enrollment as he doesn't fit with this gfr. Will reassess after labs. Also informed that clinical team is re-reviewing imaging for clips. Factory Expert: Krystal Richey Pager #: [phone] [facility] 02-11-2024 Miscellaneous Notes Study name: [facility] Trial IRB# [id number] PI: Andrés Savage Pt's gfr dropped--spoke to Dr. Fernandes. Plan for med changes with f/u labs this Saturday. Spoke with pt's daughter. Plan to pause trial enrollment as he doesn't fit with this gfr. Will reassess after labs. Also informed that clinical team is re-reviewing imaging for clips. Factory Expert: Krystal Richey Pager #: [phone] documented in this encounter [facility] 02-05-2024 Note [facility] 02-05-2024 History of Presen t illness [...] were performed per protocol by a blinded supervisor dyer: Berta Barry NYHA completed: Yes KCCQ-12 questionnaire [...] up requirements/schedule Materials dispensed: Coordinator Contact Card Factory Expert: Berta Barry [phone] documented in this encounter [facility] 01-30-2024 Note [facility] 01-30-2024 History of Presen t illness Narrative Summary: 18-600 Empower Study Called pt's daughter Charu to give update on Empower study, and to schedule screening visit. documented in this encounter [facility] 01-14-2024 Telephone encounter Note January 14, 2024 Name: José Miguel Juarez Paco Rose Patient Contact Number: [phone] - daughter's cell - Charu Cain Date of last office visit: 01/10/2024 Reason For Call: Medication Issue/Question: Patient's daughter is asking if after reviewing labs are there any medication changes? Please call daughter's phone - Charu Cain Physician: Paulina Fernandes MD Patient was informed that non-urgent calls may be returned within the next three business days. Yes Hillary Martinez [facility] 04-30-2024 Miscellaneous Notes January 14, 2024 Name: José Miguel Antonio Jr. Patient Contact Number: [phone] - daughter's cell - Charu Cain Date of last office visit: 01/10/2024 Reason For Call: Medication Issue/Question: Patient's daughter is asking if after reviewing labs are there any medication changes? Please call daughter's phone - Charu Travistheron Physician: Paulina Fernandes MD Patient was informed that non-urgent calls may be returned within the next three business days. Yes Hillary Martinez documented in this encounter [facility] 01-10-2024 Evaluation note Diagnosis IRB 18-600 Empower Assessment of the CARILLON Mitral Contour System in Treating Functional Mitral Regurgitation Associated with Heart Failure PI: Hussein- Primary documented in this encounter [facility] History of Present illness Narrative* Krystal Richey - 01/10/2024 12:32 PM EDT IRB 18-600 Empower Assessment of the CARILLON Mitral Contour System in Treating Functional Mitral Regurgitation Associated with Heart Failure PI: Hussein Study explained/reviewed with patient and 3 daughters. Study related follow-up requirements were discussed. Risks, benefits, alternatives, personnel, and costs of the study explained/reviewed. Patient provided informed consent for review previously via [employer]. Study related questions were addressed. Pt agreeable [...] [facility] and Dr. Brady info on card. Krystal Richey RN [phone] documented in this [facility]04-[facility] Instructions* Patient Instructions* Paulina Fernandes MD - 01/10/2024 11:19 AM EDT -blood work today -screening for EMPOWER study -Will likely start low dose ACEi or ARB after I review your labs documented in this encounterMiddletown Hospital04-[facility]-2024 History of Present illness Narrative* Paulina Fernandes MD - 01/10/2024 10:15 AM EDT Images from the original note were not included. [facility] [place] [facility] SECTION OF HEART FAILURE and CARDIAC TRANSPLANT MEDICINE OUTPATIENT VISIT DATE January 10, 2024 OUTPATIENT VISIT TYPE Consultation PRIMARY CARE PHYSICIAN: Samm Thompson [address] [place] [address] CHIEF COMPLAINT: HFrEF, ischemic CM, severe FMR NURSING INTAKE (Patient s concerns and/or recent hospitalizations/ER visits): José Miguel Antonio Jr. is a 83 year old male from [place], [place] referred by Dr. Brady for GDMT. [...] (gastroesophageal reflux disease) Heart failure, acute systolic ([facility]) Hypertension Hypothyroid Myocardial infarct, old Occlusion and stenosis of carotid artery without mention of cerebral infarction Prostate cancer ([facility]) 2020 PVD (peripheral vascular disease) ([facility]) 11/17/2012 Stroke (cerebrum) ([facility]) 09/03/2022 Systolic heart failure ([facility]) Thyroid disorder 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 kidney disease, unspecified CKD stage, unspecified whether snf insulin use ([facility]) 04/26/2023 Ventricular tachycardia ([facility]) 04/28/2012 PAST SURGICAL HISTORY Procedure Laterality [...] Artery Disease Father Heart Attack Father fatal [place] at age 77 Ischemic Heart Disease Brother CABGx6 first at age 72 No Known Problems Maternal Grandmother No Known Problems Maternal Grandfather No Known Problems Paternal Grandmother No Known Problems Paternal Grandfather No Known Problems Daughter No Known Problems Daughter No Known Problems Daughter other (Other) Other paternal cousin at age 50 of [place] ALLERGIES: ALLERGIES Allergen Reactions Latex Rash Adhesive [...] (NITROQUICK) 0.4 mg SL tablet as directed. NUTRITION ASSOCIATE 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 aspirin, [...] severe functional MR, ICM (s/p ICD in 2018), CABG 2011, LHC in 2021 patent OTTO-LAD [...] non-medical management as above. Paulina Fernandes MD [facility] Section Of Heart Failure and Cardiac Transplant Medicine [facility] [place] [facility] Desk [id number] [id number] documented in this encounterMiddletown Hospital04-26-2024 [facility] Evaluation note* Diagnosis IRB 18-600 Empower Assessment of the CARILLON Mitral Contour System in Treating Functional Mitral Regurgitation Associated with Heart Failure PI: Hussein- Primary documented in this encounter [facility]04-18-2024 Miscellaneous Notes* Telephone Encounter - Velma Hall - 01/02/2024 2:54 PM EDTSummary: 18600 Empower Consent/Screening Called the pt to schedule [...] and let the research team know. Velma Hall January 02, 2024 2:58 PM documented in this encounterMiddletown Hospital04-18-2024 [facility]04-18-2024 History of Present illness Narrative* Samiragregory Krystal Diya - 01/02/2024 2:27 PM EDT IRB 18-600 Empower Assessment of [...] by baseline images/testing if he is optimized. Krystal Richey RN [id number] documented in this encounterMiddletown Hospital04-17-2024 [facility]04-17-2024 History of Present illness Narrative* Krystal Richey - 01/01/2024 4:18 PM EDT Study name: EMPOWER Trial IRB# [id number] PI: Andrés Savage Contacted pt regarding above listed trial, as his daughter did not reach out to me today. He statedthat I should wait for her to call me. Reinforced hours and contact number. We will call him next week if she doesn't reach out. Factory Expert: Krystal Richey Pager #: [phone] documented in this encounterMiddletown Hospital04-15-2024 [facility]04-15-2024 History of Present illness Narrative* Krystal Richey - 12/30/2023 3:28 PM EDT IRB 18-600 [facility] Assessment of the CARILLON Mitral Contour System [...] me on Saturday. Follow up appointment added. Krystal Richey RN [phone] documented in this encounterMidd[facility]own [facility]04-11-2024 [facility]04[facility] History of Present illness Narrative* Kristina Ceja APRN.CNP - 12/26/2023 4:38 PM EDT Multidisciplinary Cardiac [...] Yanick Saravia RN PATIENT NAME: José Miguel Antonio Jr. DATE: December 26, 2023 Patient History: 83 M Severe FMR ICM s/p DC-ICD (in 2018) CABG (in 2011, with cath in 2021 with patent OTTO-LAD and SVG to OM, with occluded VG to PDA) Prior stroke in 2020 s/p tPA (no deficits) on Eliquis COPD (remote smoker) CKD (crea ~ 1.5-2.0) Right CEA (2012) Team Members Seen/ Presenting Physcian Dr. Brady Reason: FMR HF: Dr. Fernandes CTS: None Discussion / recommendations: After review and discussion of patient presentation, the following thoughts / recommendations were made. Review/Recs: MERRITT reviewed. Was done when patient was very decompensated, so MR likely overstated. Repeat echo once euvolemic. Reviewed, MR improved Pursue Bartolome Patient notified: I spoke with Rory and [...] members has been completed by: Kristina Ceja APRN.CNP documented in this encounterMiddletown Hospital04-11-2024 History of Present illness Narrative* Efren Brady MD - 12/26/2023 11:15 AM EDT [facility] [place] [facility] Department of Cardiovascular Medicine [...] combined systolic and diastolic congestive heart failure ([facility]) 09/03/2022 Dyslipidemia GERD (gastroesophageal reflux disease) Heart failure, acute systolic ([facility]) Hypertension Hypothyroid Myocardial infarct, old Occlusion and stenosis of carotid artery without mention of cerebral infarction Prostate cancer ([facility]) 2020 PVD (peripheral vascular disease) ([facility]) 11/17/2012 Stroke (cerebrum) ([facility]) 09/03/2022 Systolic heart failure ([facility]) Thyroid disorder 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 kidney disease, unspecified CKD stage, unspecified whether snf insulin use ([facility]) 04/26/2023 Ventricular tachycardia ([facility]) 04/28/2012 Surgical History: PAST SURGICAL HISTORY Procedure [...] Artery Disease Father Heart Attack Father fatal [place] at age 77 Ischemic Heart Disease Brother CABGx6 first at age 72 No Known Problems Maternal Grandmother No Known Problems Maternal Grandfather No Known Problems Paternal Grandmother No Known Problems Paternal Grandfather No Known Problems Daughter No Known Problems Daughter No Known Problems Daughter other (Other) Other paternal cousin at age 50 of [place] Social History: Social History Tobacco Use Smoking status: Former Packs/day: 1.00 Years: 10.00 Additional pack years: 0.00 Total pack years: 10.00 Types: Cigarettes, Pipe Quit date: 04/28/1982 Years since quittin.6 Passive exposure: Never Smokeless tobacco: Never Vaping Use Vaping Use: Never used Substance Use Topics Alcohol use: Yes Comment: rarely Drug use: Never Allergies: ALLERGIES Allergen Reactions Latex Rash Adhesive Tape (Keyanan* Rash Current Medications dapagliflozin propanediol (FARXIGA) 10 mg tablet Take 10 mg by mouth daily with breakfast. furosemide (LASIX) 40 mg tablet Take 40 mg by mouth two times a day. Cholecalciferol, Vitamin D3, 25 mcg (1,000 unit) cap Take 1,000 Units by mouth as needed. nitroglycerin sublingual (NITROQUICK) 0.4 mg SL tablet as directed. NUTRITION ASSOCIATE 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 aspirin, [...] CEA (2012) He was recently admitted to [place] in Sep and November with SANTILLAN - [...] to guide any procedure. Efren Brady MD, [facility] customer services coordinator, [facility] Staff, Section of Cardiovascular Imaging Department of Cardiovascular Medicine [facility] [place] [facility] documented in this encounterMiddletown [facility]04-11-2024 [facility]04-10-2024 NoteFire[facility]04-02-2024 Miscellaneous Notes* Telephone Encounter - Sandy Sales - 12/17/2023 12:08 PM EDT December 17, 2023 Patient Contact Number: [phone] Patient last seen within the last year: Yes Date of last office visit: 12/12/2023 Reason For Call: Daughter called to verify okay for Mr. Antonio to start cardiac rehabilitation. Physician: Virgil Carrillo MD Patient was informed that non-urgent calls may be returned within the next three business days. Yes Sandy Sales documented in this encounterMiddletown Hospital03-28-2024 Instructions* Patient Instructions* Carmelina Ramos, TRANSITION NURSE.VEGETABLE BUNCHER - 12/12/2023 2:38 PM EDT -I will [...] Bldg 02/18/2024 12:30 PM Virgil Carrillo MD CARIMN Mn J Bldg 03/24/2024 1:00 PM LAB HEMRAD [place] [facility] [place] 03/31/2024 1:15 PM Yung Andrade MD RADTSA [place] 03/31/2024 1:30 PM LAB HEMRAD [facility] [place] documented in this encounterMiddletown Hospital03-28-2024 History of Present illness Narrative* Carmelina Ramos APRN.VEGETABLE BUNCHER - 12/12/2023 1:30 PM EDT Images from the original note were not included. [facility] [place] [facility] Department of Cardiovascular Medicine SECTION OF CARDIOVASCULAR IMAGING OUTPATIENT VISIT DATE December 12, 2023 OUTPATIENT VISIT TYPE ESTABLISHED PRIMARY CARE PHYSICIAN: Samm Thompson [address] [place] [address] REFERRING PHYSICIAN: No referring provider defined for this encounter. CHIEF COMPLAINT: Severe mitral regurgiation HISTORY OF PRESENT ILLNESS: Mr. Antonio is a 83 year old male with [...] He was admitted to the hospital in [place] on 11/18 for FVO, diuresed with IV [...] combined systolic and diastolic congestive heart failure ([facility]) 09/03/2022 Dyslipidemia GERD (gastroesophageal reflux disease) Heart failure, acute systolic ([facility]) Hypertension Hypothyroid Myocardial infarct, old Occlusion and stenosis of carotid artery without mention of cerebral infarction Prostate cancer ([facility]) 2020 PVD (peripheral vascular disease) ([facility]) 11/17/2012 Stroke (cerebrum) ([facility]) 09/03/2022 Systolic heart failure ([facility]) Thyroid disorder 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 kidney disease, unspecified CKD stage, 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 ([facility]) 04/26/2023 Ventricular tachycardia ([facility]) 04/28/2012 PAST SURGICAL HISTORY Procedure Laterality [...] Artery Disease Father Heart Attack Father fatal [place] at age 77 Ischemic Heart Disease Brother CABGx6 first at age 72 No Known Problems Maternal Grandmother No Known Problems Maternal Grandfather No Known Problems Paternal Grandmother No Known Problems Paternal Grandfather No Known Problems Daughter No Known Problems Daughter No Known Problems Daughter other (Other) Other paternal cousin at age 50 of [place] ALLERGIES: ALLERGIES Allergen Reactions Latex Rash Adhesive Tape (Keyanna* Rash MEDICATIONS: furosemide (LASIX) 40 mg tablet Take 40 mg by mouth once daily. Cholecalciferol, Vitamin D3, 25 mcg (1,000 unit) cap Take 1,000 Units by mouth as needed. nitroglycerin sublingual (NITROQUICK) 0.4 mg SL tablet as directed. NUTRITION ASSOCIATE 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 aspirin, [...] FOR LVH, MAY BE NORMAL VARIANT ( [place] product ) NONSPECIFIC INTRAVENTRICULAR BLOCK ABNORMAL ECG Confirmed by ANAM LUTZ MD ([id number]) on 11/21/2023 10:12:55 AM NT Pro BNP [...] Electrocardiogram and Echocardiogram and labs. IMPRESSION: Mr. Antonio is a 83 year old male with PMH of ischemic cardiomyopathy (LVEF 20%), CAD s/p CABG x 3 2005 (occluded SVG to PDA), secondary MR, Ventricular tachycardia s/p ICD, PAD, ischemic stroke, CKD IIIb, and HTN who presents today for follow-up visit. He was admitted to the hospital in [place] on 11/18 for FVO, diuresed with IV [...] as scheduled in December -follow-up with local fox farmer as scheduled this month -pt has been scheduled to see Dr. Brady for evaluation for Mitraclip -advised to call Dr. Carrillo's office if increase in weight, SOB, swelling -recommendation and follow-up discussed with Mr. Antonio and his daughter, Charu Future Appointments Date Time Provider Department Center 12/26/2023 11:15 AM Efren Brady MD CARIMN Mn J [facility] 01/10/2024 10:15 AM Paulina Fernandes MD CARD CHF JENNIFER Mn J Bldg 02/18/2024 9:00 AM ECHO A17 CARD MAIN CFLAMN Mn A Bldg 02/18/2024 11:30 AM EKGJ1-4 MAIN EKGF16 Mn J dg 02/18/2024 12:30 PM Virgil Carrillo MD CARIMN Mn J Bldg 03/24/2024 1:00 PM LAB HEMJEANNINE [place] [facility] [place] 03/31/2024 1:15 PM Yung Andrade MD RADTSA [place] 03/31/2024 1:30 PM LAB HEMJEANNINE [place] NOMIAN [place] I personally interviewed, confirmed and edited the above information if obtained by others. CONTACT INFORMATION: Carmelina Ramos APRN.DOROTHY documented in this encounterMiddletown Hospital03-28-2024 [facility]03-18-2024 NoteFirelands [facility]03-12-2024 Miscellaneous Notes* Telephone Encounter - Germaine Morales - 11/26/2023 3:30 PM EDT Patient's daughter called stating patient had been admitted to a hospital in [place] for fluid overload. Patient was given IV Lasix to remove the fluid. Local granite block paver is planning a Mitral Valve Clip and want him to have the clip done sooner ratherthan later. Patient is wanting to discuss with Dr. Carrillo before he makes a decision. I advised the daughter, that I would schedule Mr. Antonio to see one of our NUTRITION ASSOCIATE's post discharge, butwould also let Dr. Carrillo know that he would like to speak with him regarding the MVR. Daughter understood, and stated that she would get [place] records and images sent to us. documented in this encounterMiddletown Hospital03-11-[address]. AVS sent to [facility] via [facility]03-11-2024 Note Physical Therapy Cancellation note for Saturday11/25/23 pm Pt has been discharged from the hospital to return home , no therapy services needed . Attempted time : 15:05-15:06[facility]03-11-2024 Note [facility]03-10-2024 NoteFire[facility]03-10-2024 NoteFirelands [facility]03-10-2024 NoteSocial worker advised patient needs [facility]. Referral sent. Awaiting accepting. Mitzy Miguel accepted. AVS updated and sent to Mitzy miguel. No further OTM needs at this time.[facility]03-10-2024 NoteFirelands [facility] Center03-09-2024 NoteFire[facility] 11-23-2023 NoteFire[facility]03-09-2024 NoteFire[facility]03-09-2024 NoteFire[facility] 11-22-2023 NoteFire[facility]03-08-2024 NoteFire[facility]03-08-2024 NoteFire[facility] 11-22-2023 NoteFire[facility]03-07-2024 NoteFire[facility]03-07-2024 NoteFire[facility] 11-21-2023 NoteFire[facility]03-06-2024 NoteFire[facility]03-06-2024 NoteFire[facility] 11-20-2023 NoteFire[facility] Center03-06-2024 NoteFire[facility]03-06-2024 NoteFire[facility] 11-20-2023 NoteFire[facility]03-06-2024 NoteFire[facility]03-06-2024 NoteFire[facility] 11-19-2023 NoteFirelands [facility] Center03-04-2024 NoteFirelands [facility] Center02-14-2024 [facility]02-14-[facility] History of Present illness Narrative* Virgil Carrillo MD - 10/30/2023 9:00 AM EST Images from the original note were not included. [facility] [place] [facility] Department of Cardiovascular Medicine SECTION OF CARDIOVASCULAR IMAGING OUTPATIENT VISIT DATE October 30, 2023 OUTPATIENT VISIT TYPE ESTABLISHED PRIMARY CARE PHYSICIAN: Samm Thompson [address] [place] [address] REFERRING PHYSICIAN: Tiarra Lopez [address] [facility] [address] CHIEF COMPLAINT: Follow up HISTORY OF PRESENT ILLNESS: Mr. Antonio is a 83 year old male who presents today for follow-up visit. Previously followed up by Dr. Zahra Pierre. 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 ([facility]) 04/26/2023 Ventricular tachycardia ([facility]) 04/28/2012 PAST SURGICAL HISTORY Procedure Laterality [...] Artery Disease Father Heart Attack Father fatal [place] at age 77 Ischemic Heart Disease Brother CABGx6 first at age 72 No Known Problems Maternal Grandmother No Known Problems Maternal Grandfather No Known Problems Paternal Grandmother No Known Problems Paternal Grandfather No Known Problems Daughter No Known Problems Daughter No Known Problems Daughter other (Other) Other paternal cousin at age 50 of [place] ALLERGIES: ALLERGIES Allergen Reactions Latex Rash Adhesive Tape (Keyanna* Rash MEDICATIONS: furosemide (LASIX) 40 mg tablet Take 40 mg by mouth once daily. Cholecalciferol, Vitamin D3, 25 mcg (1,000 unit) cap Take 1,000 Units by mouth as needed. nitroglycerin sublingual (NITROQUICK) 0.4 mg SL tablet as directed. NUTRITION ASSOCIATE 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 aspirin, [...] with the prior echocardiographic exam performed on 06/06/2022. Similar findings. * * * Final * * * Last EKG Result Conclusion ECG COMPLETE Collected: 10/29/2023 11:01 AM (Preliminary result) Impression: SINUS RHYTHM WITH 1ST DEGREE AV BLOCK WITH FREQUENT PREMATURE VENTRICULAR COMPLEXES MINIMAL VOLTAGE CRITERIA FOR LVH, MAY BE NORMAL VARIANT ( [place] product ) AGE UNDETERMINED ABNORMAL ECG IMPRESSION: Mr. Antonio is a 83 year old male here for follow-up. Previously seen by Dr. Pierre. First time seeing me. Past medical history [...] ?20 mL/minute/1.73 m2, N Engl J Med. 2020;383(15):3951-0307. This should be considered if his repeat GFR is stable. He is getting 1 locally on and will reach out to me with the results Follow-up here in 3 months with an echo to review the degree of MR and consider further management options. I am also recommending that he establish care with our heart failure team here at [facility] Main campus CONTACT INFORMATION: Virgil Carrillo MD, PhD, [facility] Staff, Section of Cardiovascular Imaging Department of Cardiovascular Medicine [facility] [place] [facility] documented in this encounterMiddletown Hospital02-12-2024 NoteFirelands [facility]02-07-2024 [facility]Un[facility]-25-2024 Note [facility]01-25-2024 [facility]UnMer[facility]01-16-2024 NoteS[facility]01-14-2024 [facility]Un[facility]01-13-2024 NoteFire[facility] 09-28-2023 NoteFirelands [facility] Center01-13-2024 NoteHNO ID: [id number] Author: NOTE, INTERFACE, ? Service: ? Author Type: ? Type: Progress Notes Filed: 09/28/2023 02:16 Note Text: Epic Scheduled Downtime: 09/28/2023 1:00:00 AM to 09/28/2023 2:04:22 [facility]12-12-2023 Miscellaneous Notes* Telephone Encounter - Carina Sue - 08/27/2023 11:21 AM EST Left a message with the patient regarding the cancellation of 10/22/2023 with . Informed the patient of the new scheduled appointment on 10/29/2023 with . documented in this encounterMiddletown Hospital12-07-2023 Miscellaneous Notes* Telephone Encounter - Brenden Pollard - 08/22/2023 12:48 PM EST Call from pharmacy requesting refill. Requested Prescriptions Pending Prescriptions Disp Refills lisinopril (ZESTRIL) 5 mg tablet 90 tablet 3 Sig: Take 1 tablet by mouth once daily. Patient last seen 06-12-23 - Seen Alison Pollard documented in this encounterMiddletown Hospital08-11-2023 History of Present illness Narrative* Zahra Pierre MD - 04/26/2023 7:01 AM EDT Images from the original note were not included. [facility] [place] [facility] Department of Cardiovascular Medicine SECTION OF CARDIOVASCULAR IMAGING OUTPATIENT VISIT DATE April 26, 2023 OUTPATIENT VISIT TYPE ESTABLISHED PRIMARY CARE PHYSICIAN: Samm Thompson [address] [place] [address] REFERRING PHYSICIAN: Samm Thompson [address] [facility] [address] CHIEF COMPLAINT: Follow up HISTORY OF PRESENT ILLNESS: Mr. Antonio is a 83 year old male who [...] combined systolic and diastolic congestive heart failure ([facility]) 09/03/2022 Dyslipidemia GERD (gastroesophageal reflux disease) Heart failure, acute systolic ([facility]) Hypertension Hypothyroid Myocardial infarct, old Occlusion and stenosis of carotid artery without mention of cerebral infarction Prostate cancer ([facility]) 2020 PVD (peripheral vascular disease) ([facility]) 11/17/2012 Stroke (cerebrum) ([facility]) 09/03/2022 Systolic heart failure ([facility]) Thyroid disorder 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 kidney disease, unspecified CKD stage, 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 ([facility]) 04/26/2023 Ventricular tachycardia ([facility]) 04/28/2012 PAST SURGICAL HISTORY Procedure Laterality [...] Artery Disease Father Heart Attack Father fatal [place] at age 77 other (atrial fibrillation) Mother other (CHF) Mother other (Other) Mother at age 96 Ischemic Heart Disease Brother CABGx6 first at age 72 No Known Problems Daughter No Known Problems Daughter No Known Problems Daughter other (Other) Other paternal cousin at age 50 of [place] ALLERGIES: ALLERGIES Allergen Reactions Latex Rash Adhesive [...] FOR LVH, MAY BE NORMAL VARIANT ( [place] product ) NONSPECIFIC T WAVE ABNORMALITY ABNORMAL ECG Confirmed by MD VIET, [facility] ([id number]) on 06/26/2022 4:47:04 PM IMPRESSION AND PLAN: Mr. Antonio is a 83 year old male c [...] on low- dose MARGARETTE inhibitor, beta-jasbir, and [id number], as well as low-dose torsemide. As previously noted, he has not tolerated sacubitril/valsartan or spironolactone. He was previously in phase 2 cardiac rehabilitation, but this was stopped when he had a minor stroke, and I think it would be good for him to reinitiate this. Follow-up in 6 months. CONTACT INFORMATION: Zahra Pierre MD 12:56 PM April 27, 2023 documented in this encounterMiddletown [facility]03-16-2023 Miscellaneous Notes* Telephone Encounter - Darlene Martinez - 11/29/2022 9:11 AM EDT Mr. Antonio decided not to move forward with surgery at this time and would like to cancel. Darlene Rajput [employer] Supervisor documented in this encounterMiddletown Hospital03-16-2023 History of Present illness Narrative* John Jefferson MD - 11/29/2022 12:00 AM EDT NAME: JOSÉ MIGUEL ANTONIO JR. [facility] NO: [id number] DATE OF SERVICE: 11/29/2022 DATE OF : 1940 He let us know he has changed his mind about proceeding with his carotid surgery. We will wait to see what he says about moving ahead and when he wants to reschedule. John Jefferson M.D. SPL/089 Audio #: [id number] Date Dictated: 11/29/2022 14:25:32 Date Typed: 11/30/2022 09:05:53 Date Revised: documented in this encounterMiddletown Hospital02-15-2023 Miscellaneous Notes* Telephone Encounter - Lidia Mccloud - 10/31/2022 11:58 AM EST Called patient José Miguel to clarify surgery date and advise pre scheduled date requested, asked if I could look up his brothers surgery information, advised I could not my apologizes,to also check as he has EKG/Echo scheduled with Cardiac scheduled day after surgery ..Tiffany Clifton documented in this encounterMiddletown Hospital02-10-2023 History of Present illness Narrative* Zahra Pierre MD - 10/26/2022 11:38 AM EST Images from the original note were not included. [facility] [place] Jose Martin Silva Department of Cardiovascular Medicine SECTION OF CARDIOVASCULAR IMAGING OUTPATIENT VISIT DATE October 26, 2022 OUTPATIENT VISIT TYPE ESTABLISHED PRIMARY CARE PHYSICIAN: Samm Thompson MD [address] [place] [address] REFERRING PHYSICIAN: Zahra Pierre [id number] [facility] [id number] CHIEF COMPLAINT: Follow up HISTORY OF PRESENT ILLNESS: Mr. Antonio is a 82 year old male who [...] combined systolic and diastolic congestive heart failure ([facility]) 09/03/2022 Dyslipidemia GERD (gastroesophageal reflux disease) Heart failure, acute systolic ([facility]) Hypertension Hypothyroid Myocardial infarct, old Occlusion and stenosis of carotid artery without mention of cerebral infarction Prostate cancer ([facility]) 2020 PVD (peripheral vascular disease) ([facility]) 11/17/2012 Stroke (cerebrum) ([facility]) 09/03/2022 Systolic heart failure ([facility]) Thyroid disorder Ventricular tachycardia 04/28/2012 PAST [...] Artery Disease Father Heart Attack Father fatal [place] at age 77 other (atrial fibrillation) Mother other (CHF) Mother other (Other) Mother at age 96 Ischemic Heart Disease Brother CABGx6 first at age 72 No Known Problems Daughter No Known Problems Daughter No Known Problems Daughter other (Other) Other paternal cousin at age 50 of [place] ALLERGIES: ALLERGIES Allergen Reactions Latex Rash Adhesive [...] FOR LVH, MAY BE NORMAL VARIANT ( [place] product ) NONSPECIFIC T WAVE ABNORMALITY ABNORMAL ECG Confirmed by MD VIET, [facility] ([id number]) on 06/26/2022 4:47:04 PM IMPRESSION AND PLAN: Mr. Antonio is a 82 year old male c [...] 6 months with an echocardiogram. CONTACT INFORMATION: Zahra Pierre MD 10:07 AM November 02, 2022 documented in this encounterMiddletown Hospital02-09-2023 Instructions* Patient Instructions* Zahra Pierre MD - 10/25/2022 4:11 PM EST OK for surgery. Do not take your lisinopril the day before and the day of surgery. Continue your other medications. Check blood work today. Return in 6 months with an echocardiogram. documented in this encounterMiddletown Hospital02-09-2023 History of Present illness Narrative* Josselin Claros RN - 10/25/2022 1:45 PM EST RADIOLOGY SERVICE PROGRESS NOTE SERVICE DATE: 10/25/2022 SERVICE TIME: 1:46 PM PATIENT IDENTITY VERIFICATION COMPLETED USING TWO (2) STANDARD IDENTIFIERS: Name and Date of confirmed by patient verbally and Name and Date of confirmed by identification band PATIENT GENDER DATA: male ALLERGIES: Reviewed and unchanged MEDICATIONS REVIEWED BY: Line Tender and Josselin Claros RN PROCEDURE TYPE: NM PET Myocardial Imagin.4 mg of Regadenoson was administered at 1359 over 10 Seconds. Reversal agent used: None. and NM PET Myocardial Action Taken: POCT Blood Glucose 101 mg/dL at 1339 (QC = OK).9.2 mCi FDG-18 IV at 1416. POCT Blood Glucose 98 mg/dL at 1415 (QC = OK). Expiration date: 16JUN2025 Lot#: [id number] IV SITE: Ambulatory: A peripheral IV was started in the Right forearm with a Angio cath: 20 gauge. and A Saline lock was inserted per protocol POST EXAM PIV STATUS: Discontinued PATIENT DISCHARGED TO: Ambulatory patient, left MA department area. A Diagnostic radioactive procedure has taken place, with no further precautions necessary other than routine body substance precautions. More information regarding radiation safety can be found usingthis link: [email or web address]%20Nuclear%20Medicine%[email or web address] SIGNATURE: Josselin Claros RN PATIENT NAME: José Miguel Antonio Jr. DATE: October 25, 2022 TIME: 1:46 PM PAGER/CONTACT #: * Luigi Desai, June Blackbox - 10/25/2022 1:45 PM EST RADIOLOGY SERVICE [...] 1416 PATIENT DISCHARGED TO: Ambulatory patient, left MA department area. A Diagnostic radioactive procedure has taken place, with no further precautions necessary other than routine body substance precautions. More information regarding radiation safety can be found usingthis link: [email or web address] 20Diagnostic%20Nuclear%20Medicine%[email or web address] SIGNATURE: Madalyn Castro PATIENT NAME: José Miguel Antonio Jr. DATE: October 25, 2022 TIME: 1:32 PM PAGER/CONTACT #: documented in this encounterMiddletown Hospital01-17-2023 Nurse Note* Kathie Pavon RN - 10/02/2022 1:14 PM EST AUA 1.5 Kathie Pavon RN documented in this encounterMiddletown Hospital01-17-2023 History of Present illness Narrative* Yung Andrade MD - 10/02/2022 1:09 PM EST Radiation Oncology - Follow Up Note PATIENT NAME: José Miguel Antonio Jr. PATIENT DIAGNOSIS: Trying to get him [...] Prostate 4,600 cGy in 23 fractions, 3 Novak, IMRT, 10MV with daily CBCT Area: Pelvis Prostate Boost 3,200 cGy in 16 fractions, 2 Novak, IMRT, 10MV with daily CBCT TOTAL: 7,800 [...] have questions regarding this. Signed by: Yung Andrade MD cc: Samm Thompson MD [address] [place] [address] documented in this encounterMiddletown Hospital12-27-2022 Miscellaneous Notes* Telephone Encounter - Allyn Leon - 09/11/2022 9:34 AM EST 09/11 Spoke with patient he said that he was not aware that he needed a pet scan, He would like to speak with Dr. Pierre about the test. He also said that [...] failure (HCC) [I50.22] 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 [I25.10] Test Approved by: Aisha Benavides RN If additional orders are required route to ordering physician and to P PET RESOURCE CONSERVATIONIST [facility] with recommendations. If all recommended orders are present route to P PET RESOURCE CONSERVATIONIST MC * Telephone Encounter - Darlene Moore - 09/07/2022 12:36 PM EST This form is used for MAIN CAMPUS APPOINTMENTS ONLY. Is this request for a Main [place] PET scan appointment? Yes: Performance Test Consultant: Darlene LUNA Requesting Person (Zahra Pierre): [phone] Area Code + Phone/Pager: Who do we [...] day/next day medically urgent scans please call [phone] to expedite LVEF: LV Ejection Fraction (%) Date Value 06/06/2022 20 LVEF Free text: Yes, see above. Additional comments: N/A Send requests to P CARDIAC PET MD MC documented in this encounterMiddletown Hospital12-19-2022 History of Present illness Narrative* John Jefferson MD - 09/03/2022 11:15 AM EST Images from the original note were not included. DATE: 07/01/2012 AGE: 72 SURGEON 1: John Jefferson M.D. OPERATION: Right carotid endarterectomy with bovine patch angioplasty. [facility] [place] DEPARTMENT OF VASCULAR SURGERY OUTPATIENT VISIT DATE September 03, 2022 OUTPATIENT VISIT TYPE CONSULTATION SERVICE DATE: 09/03/2022 SERVICE TIME: 11:53 AM PRIMARY CARE PHYSICIAN: Samm Thompson MD, MD REFERRING PROVIDER: Samm Thompson MD [address] [place] [address] Consult requested for an opinion regarding the evaluation and treatment of the above. My final impression and recommendations will be communicated back to the requesting physician by way of the shared medical record or letter via [place] mail. CHIEF COMPLAINT: Carotid stenosis HISTORY OF PRESENT ILLNESS: Vascular consultation at the request of Dr. Samm Thompson. A copy of this consultation note will beprovided to the requesting physician by way of shared Medical record or letter to requesting physician via US mail. Mr. Antonio is a 82 year old male who [...] Of note, he was recently hospitalized in [place] on April for not feeling well. He has been grieving since his has passed in December. 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 without mention of cerebral infarction Prostate cancer (HCC) 2020 PVD (peripheral vascular disease) (HCC) 11/17/2012 Thyroid disorder Ventricular tachycardia 04/28/2012 PAST [...] Artery Disease Father Heart Attack Father fatal [place] at age 77 other (atrial fibrillation) Mother other (CHF) Mother other (Other) Mother at age 96 Ischemic Heart Disease Brother CABGx6 first at age 72 No Known Problems Daughter No Known Problems Daughter No Known Problems Daughter other (Other) Other paternal cousin at age 50 of [place] MEDICATIONS: therapeutic multivitamin w/ iron (THERAGRAN-M) 27-0.4 [...] bilaterally Diagnostic tests reviewed for today's visit: CTA John Jefferson MD ([id number]) paged with results. Compared to prior study [...] flow noted. Abnormal signal suggests pre-steal. IMPRESSION: [facility] STAFF PHYSICIAN NOTE OF PERSONAL INVOLVEMENT IN [...] TIME OF SERVICE: 2:23 PM IMPRESSION: Mr. Antonio is a 82 year old male with 90% LICA stenosis . PLAN and RECOMMENDATIONS: REPAIR RECOMMENDED: Carotid Repair Indications for Surgery: Asymptomatic with 80% Stenosis or Greater Anatomical Indicators: None High Risk Indicators: Greater Than 2 Vessel CAD and CHF Type: Endarterectomy vs TCAR pending clearance by cards SIGNATURE: John Jefferson MD PATIENT NAME: José Miguel Antonio Jr. DATE: September 03, 2022 TIME: 2:20 PM documented in this encounterMiddletown Hospital11-16-2022 Miscellaneous Notes* Telephone Encounter - Ayana Jauregui - 08/01/2022 4:10 PM EST Mr Antonio's daughter called and she would like to schedule an appointment with pt advised to do so due to Carotid stenosis seen Dr jefferson in 2011 regarding right side now its the left side having issues Contact Name (If not the pt): daniel Box Home and cell number: [phone] Diagnosis: Carotid stenosis Kind Regards Ayana Sullivanshashitati documented in this encounterMiddletown Hospital11-14-2022 Miscellaneous Notes* Telephone Encounter - Mary Gross - 07/30/2022 3:11 PM EST Reason for call: Mr Antonio called,and he would like to schedule an appointment with Contact Name (If not the pt): daniel Box Home and cell number: [phone] Diagnosis: Mitral valve insufficiency, unspecified etiology Kind Regards Mary documented in this encounterMiddletown Hospital11-09-2022 Miscellaneous Notes* Telephone Encounter - Luís Crandall - 07/25/2022 3:04 PM EST Images have been pushed through into [facility]. Daughter would like you to call her to go over things as this was all completed after he saw you inoroodlfoice. She can be reached at [phone] Her name is Charu documented in this encounterMiddletown Hospital09-21-2022 History of Present illness Narrative* Zahra Pierre MD - 06/06/2022 3:28 PM EDT [facility] [place] Jose Martin Silva Department of Cardiovascular Medicine SECTION OF CARDIOVASCULAR IMAGING OUTPATIENT VISIT DATE June 06, 2022 OUTPATIENT VISIT TYPE ESTABLISHED PRIMARY CARE PHYSICIAN: Samm Thompson MD [address] [id number] CHIEF COMPLAINT: Follow up HISTORY OF PRESENT ILLNESS: Mr. Antonio is a 82 year old male who [...] without mention of cerebral infarction Prostate cancer ([facility]) 2020 PVD (peripheral vascular disease) ([facility]) 11/17/2012 Thyroid disorder Ventricular tachycardia ([facility]) 04/28/2012 PAST SURGICAL HISTORY Procedure Laterality [...] Artery Disease Father Heart Attack Father fatal [place] at age 77 other (atrial fibrillation) Mother other (CHF) Mother other (Other) Mother at age 96 Ischemic Heart Disease Brother CABGx6 first at age 72 No Known Problems Daughter No Known Problems Daughter No Known Problems Daughter other (Other) Other paternal cousin at age 50 of [place] ALLERGIES: ALLERGIES Allergen Reactions Latex Rash Adhesive [...] any questions regarding this interpretation, please call [phone]. If you are unable to reach us at the number above, please feel free to contact [facility] at [phone]. IMPRESSION: Mr. Antonio is a 82 year old male a [...] options. F/U in 6 months. CONTACT INFORMATION: Zahra Pierre MD 3:36 PM June 06, 2022 documented in this encounterMiddletown Hospital08-11-2022 History of Present illness Narrative* G Denilson Andrade MD - 04/26/2022 8:02 AM EDT AMBULATORY TELEPHONE VISIT José Miguel Antonio JrTitus has consented to this telephone encounter. Persons Present: patient Chief Complaint/Reason: Prostate adenocarcinoma, initial PSA 8, biopsy [place] score 3 + 4 = 7 (grade [...] Prostate 4,600 cGy in 23 fractions, 3 Novak, IMRT, 10MV with daily CBCT Area: Pelvis Prostate Boost 3,200 cGy in 16 fractions, 2 Novak, IMRT, 10MV with daily CBCT TOTAL: 7,800 [...] PSA 08/2021 36.2. and repeat biopsy showing [place] 7 (3+4) adenocarcinoma. Overall doing well without evidence of recurrence. PSA remains undetectable. Has been off Lupron now, last dose approximately 9 months ago. Recommend continued PSA surveillance. Total Time Spent: 5 minutes Yung Andrade MD documented in this encounterMiddletown Hospital04-20-2022 History of Present illness Narrative* Yung Andrade MD - 01/03/2022 12:00 AM EDT [facility] Radiation Oncology Department RADIATION ONCOLOGY - COMPLETION NOTE PATIENT: JOSÉ MIGUEL ANTONIO: 1940 DATES OF TREATMENT: 10/23/2021 to 12/18/2021 [...] Prostate 4,600 cGy in 23 fractions, 3 Novak, IMRT, 10MV with daily CBCT Area: Pelvis Prostate Boost 3,200 cGy in 16 fractions, 2 Novak, IMRT, 10MV with daily CBCT TOTAL: 7,800 [...] 3-4 weeks with PSA. Staff Physician Denilson Andrade M.D. / WST :25 PM documented in this encounterMiddletown Hospital04-04-2022 History of Present illness Narrative* Yung Andrade MD - 12/18/2021 12:00 AM EDT [facility] Radiation Oncology Department RADIATION ONCOLOGY - COMPLETION NOTE PATIENT: JOSÉ MIGUEL ANTONIO: 1940 DATES OF TREATMENT: 10/23/2021 to 12/19/2019 DIAGNOSIS: Prostate adenocarcinoma, initial PSA 8, biopsy [place] score 3 + 4 = 7 (grade group 2), clinical stage T1c, N0, M0, stage IIB [T1-T2, N0, M0, PSA <20, GG 2] (AJCC 8th ed.), s/p TRUS Random biopsy, Patient elected observation and was found to have progression, PSA 08/2021 36.2. and repeat biopsy showing [place] 7 (3+4) adenocarcinoma. AREA TREATED: Pelvis Prostate DELIVERED DOSE: Area: Pelvis Prostate 4,600 cGy in 23 fractions, 3 Novak, IMRT, 10MV with daily CBCT Area: Pelvis Prostate Boost 3,200 cGy in 16 fractions, 2 Novak, IMRT, 10MV with daily CBCT TOTAL: 7,800 cGy in 39 Fractions ELAPSED TIME: 56 days. CLINICAL SUMMARY: Patient completed a course of intensity modulated external beam treatment for adenocarcinoma of the prostate. Overall tolerance very good. The patient has planned post radiation follow up in 3-4 . Staff Physician Denilson Andrade M.D. / WST 21:22 PM documented in this encounterMiddletown Hospital03-28-2022 History of Present illness Narrative* Yung Andrade MD - 12/11/2021 8:44 AM EDT Radiation Oncology - On Treatment Review (OTR) Note PATIENT NAME: José Miguel Antonio Jr. PATIENT DIAGNOSIS: Prostate cancer. COURSE: definitive [...] finishes this week. Follow-up care discussed. Yung Andrade MD documented in this encounterMiddletown Hospital12-29-2021 History of Present illness Narrative* Devika Fishman RT(R) - 09/13/2021 2:45 PM EST Radiology Service Progress Note PATIENT NAME: José Miguel Antonio Jr. DATE OF SERVICE: September 13, 2021 TIME: 2:54 PM PATIENT IDENTITY VERIFICATION COMPLETED USING TWO (2) IDENTIFIERS: Name and Date of confirmedby patient verbally. FALL SCREENING: Has the patient had 2 falls in the last year or 1 fall with injury or currently using an Ambulatory Assistive Device (Walker, Cane, Wheelchair, Crutches, etc.)? No PATIENT GENDER DATA: Male PATIENT RELEVANT IMPLANT DATA REVIEWED: Not Applicable RADIOLOGY DEPARTMENT: CT; Exam(s) Completed: Chest PERIPHERAL IV DATA: Site assessment: Clean,Dry and Intact, Site disposition Discontinued SIGNED BY: RT Karen(R) September 13, 2021 2:54 PM documented in this encounterMiddletown Hospital12-29-2021 Nurse Note* Allyn Tong RN - 09/13/2021 2:45 PM EST Radiology Service Progress Note DATE OF SERVICE: September 13, 2021 TIME: 2:57 PM PATIENT WEIGHT: 196LBS PATIENT IDENTITY VERIFICATION COMPLETED USING TWO (2) STANDARD IDENTIFIERS: Name and Date of confirmed by patient verbally. FALL SCREENING: Has the patient had 2 falls in the last year or 1 fall with injury or currently using an Ambulatory Assistive Device (Walker, Cane, Wheelchair, Crutches, etc.)? Yes, Patient High Riskfor Falls What interventions were put in place to prevent falls during this visit? Increased Observations by Caregivers PATIENT GENDER DATA: Male ALLERGIES: Reviewed and unchanged CONTRAST ALLERGY: No EXAM: CT -CONTRAST INDUCED NEPHROPATHY RISK FACTORS: Patient age > 60 years CREATININE: Creatinine Date Value Ref Range Status 09/05/2021 1.50 (H) 0.73 - 1.22 mg/dL Final 05/03/2020 1.56 (H) 0.73 - 1.22 mg/dL Final 04/15/2020 1.58 (H) 0.73 - 1.22 mg/dL Final eGFR-All Other Races Date Value Ref Range Status 09/05/2021 45 . Final Comment: eGFR (Estimated GFR) Units of measure: mL/min/1.73 meters squared eGFR is derived from the reexpressed MDRD Study equation using the following parameters: serum creatinine, age, gender and race. The creatinine assay has been calibrated to be traceable to IDMS. An eGFR <60 mL/min/1.73m2 for >3 months is consistent with chronic kidney disease. Refer to KDOQI guidelines for clinical interpretation. In patients with unstable renal function, e.g. those with acute kidney injury, the eGFR may not accurately reflect actual GFR. Note: On 11/11/2021, the eGFR calculation will be updated to the NKF-ASN Task Force recommended 2020 CKD-EPI creatinine equation which does not include a race variable. For more information or to access a 2020 CKD-EPI calculator, visit the National Kidney Foundation website at kidney.org/professionals/kdoqi/gfr_calculator. eGFR- Date Value Ref Range Status 09/05/2021 55 Final P.O.C.T. RESULTS: POC done: Yes, See Lab Tab September 05, 2021 TREATMENT: No Hydration needed. IV SITE: Ambulatory: A peripheral IV was started in the Right antecubital site with a Angio cath: 20 gauge. IV SITE APPEARANCE: Clean,Dry and Intact SIGNATURE: Allyn Tong RN PATIENT NAME: José Miguel Antonio Jr. DATE: September 13, 2021 TIME: 2:57 PM [facility]12-29-[facility] Nurse Note* Allyn Tong RN - 09/13/2021 2:45 PM EST Radiology Service Progress Note DATE OF SERVICE: September 13, 2021 TIME: 2:57 PM PATIENT WEIGHT: 196LBS PATIENT IDENTITY VERIFICATION COMPLETED USING TWO (2) STANDARD IDENTIFIERS: Name and Date of confirmed by patient verbally. FALL SCREENING: Has the patient had 2 falls in the last year or 1 fall with injury or currently using an Ambulatory Assistive Device (Walker, Cane, Wheelchair, Crutches, etc.)? Yes, Patient High Riskfor Falls What interventions were put in place to prevent falls during this visit? Increased Observations by Caregivers PATIENT GENDER DATA: Male ALLERGIES: Reviewed and unchanged CONTRAST ALLERGY: No EXAM: CT -CONTRAST INDUCED NEPHROPATHY RISK FACTORS: Patient age > 60 years CREATININE: Creatinine Date Value Ref Range Status 09/05/2021 1.50 (H) 0.73 - 1.22 mg/dL Final 05/03/2020 1.56 (H) 0.73 - 1.22 mg/dL Final 04/15/2020 1.58 (H) 0.73 - 1.22 mg/dL Final eGFR-All Other Races Date Value Ref Range Status 09/05/2021 45 . Final Comment: eGFR (Estimated GFR) Units of measure: mL/min/1.73 meters squared eGFR is derived from the reexpressed MDRD Study equation using the following parameters: serum creatinine, age, gender and race. The creatinine assay has been calibrated to be traceable to IDMS. An eGFR <60 mL/min/1.73m2 for >3 months is consistent with chronic kidney disease. Refer to KDOQI guidelines for clinical interpretation. In patients with unstable renal function, e.g. those with acute kidney injury, the eGFR may not accurately reflect actual GFR. Note: On 11/11/2021, the eGFR calculation will be updated to the NKF-ASN Task Force recommended 2020 CKD-EPI creatinine equation which does not include a race variable. For more information or to access a 2020 CKD-EPI calculator, visit the National Kidney Foundation website at kidney.org/professionals/kdoqi/gfr_calculator. eGFR- Date Value Ref Range Status 09/05/2021 55 Final P.O.C.T. RESULTS: POC done: Yes, See Lab Tab September 05, 2021 TREATMENT: No Hydration needed. IV SITE: Ambulatory: A peripheral IV was started in the Right antecubital site with a Angio cath: 20 gauge. IV SITE APPEARANCE: Clean,Dry and Intact SIGNATURE: Allyn Tong RN PATIENT NAME: José Miguel Antonio Jr. DATE: September 13, 2021 TIME: 2:57 PM documented in this encounterMiddletown Hospital01-24-2018 History of Past illness Narrative* Problem [...] 56, Troponin T .37 [facility] Wide-complex tachycardia 04/28/2012 Overview: Presented to [facility] 04/28/12 in setting acute [place] with wide complex tachycardia SVT versus VT. Given adenosine x2 without effect, diltiazem bolus and infusion with no effect. Spontaneous conversion to NSR. Had short run of wide complex tachycardia upon arrival to [facility] from CICU. Pre-op evaluation 04/28/2012 05/01/2012 Overview: Preoperative evaluation for CABG. Not ReDo -Carotids: Ordered -Vein Mapping: Ordered -Bedside PFTs: Ordered -Formal TTE: Ordered -CXR: Completed documented as of this encounter (statuses as of 10/30/2023) [facility]-24-2018 History of Past illness Narrative* Problem [...] 56, Troponin T .37 on admission to [facility] Wide-complex tachycardia 04/28/2012 Overview: Presented to OSH 04/28/12 in setting acute MT with wide complex tachycardia SVT versus VT. Given adenosine x2 without effect, diltiazem bolus and infusion with no effect. Spontaneous conversion to NSR. Had short run of wide complex tachycardia upon arrival to [facility] from CICU. Pre-op evaluation 04/28/2012 05/01/2012 Overview: Preoperative evaluation for CABG. Not ReDo -Carotids: Ordered -Vein Mapping: Ordered -Bedside PFTs: Ordered -Formal TTE: Ordered -CXR: Completed documented as of this encounter (statuses as of 11/27/2023) [facility] History of Past illness Narrative* Problem [...] 56, Troponin T .37 on admission to [facility] Wide-complex tachycardia 04/28/2012 Overview: Presented to OSH 04/28/12 in setting acute MT with wide complex tachycardia SVT versus VT. Given adenosine x2 without effect, diltiazem bolus and infusion with no effect. Spontaneous conversion to NSR. Had short run of wide complex tachycardia upon arrival to [facility] from CICU. Pre-op evaluation 04/28/2012 05/01/2012 Overview: Preoperative evaluation for CABG. Not ReDo -Carotids: Ordered -Vein Mapping: Ordered -Bedside PFTs: Ordered -Formal TTE: Ordered -CXR: Completed documented as of this encounter (statuses as of 11/27/2023) [facility] History of Past illness Narrative* Problem [...] 56, Troponin T .37 on admission to [facility] Wide-complex tachycardia 04/28/2012 Overview: Presented to OSH 04/28/12 in setting acute MT with wide complex tachycardia SVT versus VT. Given adenosine x2 without effect, diltiazem bolus and infusion with no effect. Spontaneous conversion to NSR. Had short run of wide complex tachycardia upon arrival to [facility] from CICU. Pre-op evaluation 04/28/2012 05/01/2012 Overview: Preoperative evaluation for CABG. Not ReDo -Carotids: Ordered -Vein Mapping: Ordered -Bedside PFTs: Ordered -Formal TTE: Ordered -CXR: Completed documented as of this encounter (statuses as of 12/04/2023) [facility] History of Past illness Narrative* Problem [...] 56, Troponin T .37 on admission to [facility] Wide-complex tachycardia 04/28/2012 Overview: Presented to OSH 04/28/12 in setting acute MT with wide complex tachycardia SVT versus VT. Given adenosine x2 without effect, diltiazem bolus and infusion with no effect. Spontaneous conversion to NSR. Had short run of wide complex tachycardia upon arrival to [facility] from CICU. Pre-op evaluation 04/28/2012 05/01/2012 Overview: Preoperative evaluation for CABG. Not ReDo -Carotids: Ordered -Vein Mapping: Ordered -Bedside PFTs: Ordered -Formal TTE: Ordered -CXR: Completed documented as of this encounter (statuses as of 12/20/2023) [facility] History of Past illness Narrative* Problem [...] 56, Troponin T .37 on admission to [facility] Wide-complex tachycardia 04/28/2012 Overview: Presented to OSH 04/28/12 in setting acute MT with wide complex tachycardia SVT versus VT. Given adenosine x2 without effect, diltiazem bolus and infusion with no effect. Spontaneous conversion to NSR. Had short run of wide complex tachycardia upon arrival to [facility] from C[facility]. Pre-op evaluation 04/28/2012 05/01/2012 Overview: Preoperative evaluation for CABG. Not ReDo -Carotids: Ordered -Vein Mapping: Ordered -Bedside PFTs: Ordered -Formal TTE: Ordered -CXR: Completed documented as of this encounter (statuses as of 12/23/2023) [facility] History of Past illness Narrative* Problem [...] 56, Troponin T .37 on admission to [facility] Wide-complex tachycardia 04/28/2012 Overview: Presented to OSH 04/28/12 in setting acute MT with wide complex tachycardia SVT versus VT. Given adenosine x2 without effect, diltiazem bolus and infusion with no effect. Spontaneous conversion to NSR. Had short run of wide complex tachycardia upon arrival to [facility] from [facility]. Pre-op evaluation 04/28/2012 05/01/2012 Overview: Preoperative evaluation for CABG. Not ReDo -Carotids: Ordered -Vein Mapping: Ordered -Bedside PFTs: Ordered -Formal TTE: Ordered -CXR: Completed documented as of this encounter (statuses as of 12/24/2023) [facility] History of Past illness Narrative* Problem [...] 56, Troponin T .37 on admission to [facility] Wide-complex tachycardia 04/28/2012 Overview: Presented to OSH 04/28/12 in setting acute MT with wide complex tachycardia SVT versus VT. Given adenosine x2 without effect, diltiazem bolus and infusion with no effect. Spontaneous conversion to NSR. Had short run of wide complex tachycardia upon arrival to [facility] from [facility]. Pre-op evaluation 04/28/2012 05/01/2012 Overview: Preoperative evaluation for CABG. Not ReDo -Carotids: Ordered -Vein Mapping: Ordered -Bedside PFTs: Ordered -Formal TTE: Ordered -CXR: Completed documented as of this encounter (statuses as of 12/27/2023) [facility] History of Past illness Narrative* Problem [...] 56, Troponin T .37 on admission to [facility] Wide-complex tachycardia 04/28/2012 Overview: Presented to OSH 04/28/12 in setting acute MT with wide complex tachycardia SVT versus VT. Given adenosine x2 without effect, diltiazem bolus and infusion with no effect. Spontaneous conversion to NSR. Had short run of wide complex tachycardia upon arrival to [facility] from [facility]. Pre-op evaluation 04/28/2012 05/01/2012 Overview: Preoperative evaluation for CABG. Not ReDo -Carotids: Ordered -Vein Mapping: Ordered -Bedside PFTs: Ordered -Formal TTE: Ordered -CXR: Completed documented as of this encounter (statuses as of 12/27/2023) [facility] History of Past illness Narrative* Problem [...] 56, Troponin T .37 on admission to [facility] Wide-complex tachycardia 04/28/2012 Overview: Presented to OSH 04/28/12 in setting acute MT with wide complex tachycardia SVT versus VT. Given adenosine x2 without effect, diltiazem bolus and infusion with no effect. Spontaneous conversion to NSR. Had short run of wide complex tachycardia [facility] Pre-op evaluation 04/28/2012 05/01/2012 Overview: Preoperative evaluation for CABG. Not ReDo -Carotids: Ordered -Vein Mapping: Ordered -Bedside PFTs: Ordered -Formal TTE: Ordered -CXR: Completed documented as of this encounter (statuses as of 12/31/2023) [facility] History of Past illness Narrative* Problem [...] 56, Troponin T .37 on admission to [facility] Wide-complex tachycardia 04/28/2012 Overview: Presented to OSH 04/28/12 in setting acute MT with wide complex tachycardia SVT versus VT. Given adenosine x2 without effect, diltiazem bolus and infusion with no effect. Spontaneous conversion to NSR. Had short run of wide complex tachycardia [facility] Pre-op evaluation 04/28/2012 05/01/2012 Overview: Preoperative evaluation for CABG. Not ReDo -Carotids: Ordered -Vein Mapping: Ordered -Bedside PFTs: Ordered -Formal TTE: Ordered -CXR: Completed documented as of this encounter (statuses as of 01/02/2024) [facility] History of Past illness Narrative* Problem [...] 56, Troponin T .37 on admission to [facility] Wide-complex tachycardia 04/28/2012 Overview: Presented to OSH 04/28/12 in setting acute MT with wide complex tachycardia SVT versus VT. Given adenosine x2 without effect, diltiazem bolus and infusion with no effect. Spontaneous conversion to NSR. Had short run of wide complex tachycardia upon [facility] Pre-op evaluation 04/28/2012 05/01/2012 Overview: Preoperative evaluation for CABG. Not ReDo -Carotids: Ordered -Vein Mapping: Ordered -Bedside PFTs: Ordered -Formal TTE: Ordered -CXR: Completed documented as of this encounter (statuses as of 01/03/2024) [facility] History of Past illness Narrative* Problem [...] 56, Troponin T .37 on admission to [facility] Wide-complex tachycardia 04/28/2012 012 Overview: Presented to OSH 04/28/12 in setting acute MT with wide complex tachycardia SVT versus VT. Given adenosine x2 without effect, diltiazem bolus and infusion with no effect. Spontaneous conversion to NSR. Had short run of wide complex tachycardia upon arrival to [facility] from [facility]. Pre-op evaluation 04/28/2012 05/01/2012 Overview: Preoperative evaluation for CABG. Not ReDo -Carotids: Ordered -Vein Mapping: Ordered -Bedside PFTs: Ordered -Formal TTE: Ordered -CXR: Completed documented as of this encounter (statuses as of 12/18/2021) [facility] History of Past illness Narrative* Problem [...] 56, Troponin T .37 on admission to [facility] Wide-complex tachycardia 04/28/2012 012 Overview: Presented to OSH 04/28/12 in setting acute MT with wide complex tachycardia SVT versus VT. Given adenosine x2 without effect, diltiazem bolus and infusion with no effect. Spontaneous conversion to NSR. Had short run of wide complex tachycardia upon arrival to [facility] from [facility]. Pre-op evaluation 04/28/2012 05/01/2012 Overview: Preoperative evaluation for CABG. Not ReDo -Carotids: Ordered -Vein Mapping: Ordered -Bedside PFTs: Ordered -Formal TTE: Ordered -CXR: Completed documented as of this encounter (statuses as of 12/21/2021) [facility] History of Past illness Narrative* Problem [...] 56, Troponin T .37 on admission to [facility] Wide-complex tachycardia 04/28/2012 012 Overview: Presented to OSH 04/28/12 in setting acute MT with wide complex tachycardia SVT versus VT. Given adenosine x2 without effect, diltiazem bolus and infusion with no effect. Spontaneous conversion to NSR. Had short run of wide complex tachycardia upon arrival to [facility] from [facility]. Pre-op evaluation 04/28/2012 05/01/2012 Overview: Preoperative evaluation for CABG. Not ReDo -Carotids: Ordered -Vein Mapping: Ordered -Bedside PFTs: Ordered -Formal TTE: Ordered -CXR: Completed documented as of this encounter (statuses as of 01/15/2022) [facility] History of Past illness Narrative* Problem [...] 56, Troponin T .37 on admission to [facility] Wide-complex tachycardia 04/28/2012 012 Overview: Presented to OSH 04/28/12 in setting acute MT with wide complex tachycardia SVT versus VT. Given adenosine x2 without effect, diltiazem bolus and infusion with no effect. Spontaneous conversion to NSR. Had short run of wide complex tachycardia [facility] Pre[facility]op evaluation 04/28/2012 05/01/2012 Overview: Preoperative evaluation for CABG. Not ReDo -Carotids: Ordered -Vein Mapping: Ordered -Bedside PFTs: Ordered -Formal TTE: Ordered -CXR: Completed documented as of this encounter (statuses as of 01/18/2022) [facility] History of Past illness Narrative* Problem [...] 56, Troponin T .37 on admission to [facility] Wide-complex tachycardia 04/28/2012 012 Overview: Presented to OSH 04/28/12 in setting acute MT with wide complex tachycardia SVT versus VT. Given adenosine x2 without effect, diltiazem bolus and infusion with no effect. Spontaneous conversion to NSR. Had short run of wide complex tachycardia upon arrival to [facility] from [facility]. Pre-op evaluation 04/28/2012 05/01/2012 Overview: Preoperative evaluation for CABG. Not ReDo -Carotids: Ordered -Vein Mapping: Ordered -Bedside PFTs: Ordered -Formal TTE: Ordered -CXR: Completed documented as of this encounter (statuses as of 02/06/2022) [facility] History of Past illness Narrative* Problem [...] 56, Troponin T .37 on admission to [facility] Wide-complex tachycardia 04/28/2012 012 Overview: Presented to OSH 04/28/12 in setting acute MT with wide complex tachycardia SVT versus VT. Given adenosine x2 without effect, diltiazem bolus and infusion with no effect. Spontaneous conversion to NSR. Had short run of wide complex tachycardia upon arrival to [facility] from [facility]. Pre-op evaluation 04/28/2012 05/01/2012 Overview: Preoperative evaluation for CABG. Not ReDo -Carotids: Ordered -Vein Mapping: Ordered -Bedside PFTs: Ordered -Formal TTE: Ordered -CXR: Completed documented as of this encounter (statuses as of 04/26/2022) [facility] History of Past illness Narrative* Problem [...] 56, Troponin T .37 on admission to [facility] Wide-complex tachycardia 04/28/2012 012 Overview: Presented to OSH 04/28/12 in setting acute MT with wide complex tachycardia SVT versus VT. Given adenosine x2 without effect, diltiazem bolus and infusion with no effect. Spontaneous conversion to NSR. Had short run of wide complex tachycardia upon arrival to [facility] from [facility]. Pre-op evaluation 04/28/2012 05/01/2012 Overview: Preoperative evaluation for CABG. Not ReDo -Carotids: Ordered -Vein Mapping: Ordered -Bedside PFTs: Ordered -Formal TTE: Ordered -CXR: Completed documented as of this encounter (statuses as of 05/08/2022) [facility] History of Past illness Narrative* Problem [...] 56, Troponin T .37 on admission to [facility] Wide-complex tachycardia 04/28/2012 012 Overview: Presented to OSH 04/28/12 in setting acute MT with wide complex tachycardia SVT versus VT. Given adenosine x2 without effect, diltiazem bolus and infusion with no effect. Spontaneous conversion to NSR. Had short run of wide complex tachycardia upon arrival to [facility] from [facility]. Pre-op evaluation 04/28/2012 05/01/2012 Overview: Preoperative evaluation for CABG. Not ReDo -Carotids: Ordered -Vein Mapping: Ordered -Bedside PFTs: Ordered -Formal TTE: Ordered -CXR: Completed documented as of this encounter (statuses as of 06/06/2022) [facility] History of Past illness Narrative* Problem [...] 56, Troponin T .37 on admission to [facility] Wide-complex tachycardia 04/28/2012 012 Overview: Presented to OSH 04/28/12 in setting acute MT with wide complex tachycardia SVT versus VT. Given adenosine x2 without effect, diltiazem bolus and infusion with no effect. Spontaneous conversion to NSR. Had short run of wide complex tachycardia upon arrival to [facility] from [facility]. Pre-op evaluation 04/28/2012 05/01/2012 Overview: Preoperative evaluation for CABG. Not ReDo -Carotids: Ordered -Vein Mapping: Ordered -Bedside PFTs: Ordered -Formal TTE: Ordered -CXR: Completed documented as of this encounter (statuses as of 06/06/2022) [facility] History of Past illness Narrative* Problem [...] 56, Troponin T .37 on admission to [facility] Wide-complex tachycardia 04/28/2012 012 Overview: Presented to OSH 04/28/12 in setting acute MT with wide complex tachycardia SVT versus VT. Given adenosine x2 without effect, diltiazem bolus and infusion with no effect. Spontaneous conversion to NSR. Had short run of wide complex tachycardia upon arrival to [facility] from [facility]. Pre-op evaluation 04/28/2012 05/01/2012 Overview: Preoperative evaluation for CABG. Not ReDo -Carotids: Ordered -Vein Mapping: Ordered -Bedside PFTs: Ordered -Formal TTE: Ordered -CXR: Completed documented as of this encounter (statuses as of 07/31/2022) [facility] History of Past illness Narrative* Problem [...] 56, Troponin T .37 on admission to [facility] Wide-complex tachycardia 04/28/2012 012 Overview: Presented to OSH 04/28/12 in setting acute MT with wide complex tachycardia SVT versus VT. Given adenosine x2 without effect, diltiazem bolus and infusion with no effect. Spontaneous conversion to NSR. Had short run of wide complex tachycardia upon arrival to [facility] from [facility]. Pre-op evaluation 04/28/2012 05/01/2012 Overview: Preoperative evaluation for CABG. Not ReDo -Carotids: Ordered -Vein Mapping: Ordered -Bedside PFTs: Ordered -Formal TTE: Ordered -CXR: Completed documented as of this encounter (statuses as of 08/01/2022) [facility] History of Past illness Narrative* Problem [...] 56, Troponin T .37 on admission to [facility] Wide-complex tachycardia 04/28/2012 012 Overview: Presented to OSH 04/28/12 in setting acute MT with wide complex tachycardia SVT versus VT. Given adenosine x2 without effect, diltiazem bolus and infusion with no effect. Spontaneous conversion to NSR. Had short run of wide complex tachycardia upon arrival to [facility] from [facility]. Pre-op evaluation 04/28/2012 05/01/2012 Overview: Preoperative evaluation for CABG. Not ReDo -Carotids: Ordered -Vein Mapping: Ordered -Bedside PFTs: Ordered -Formal TTE: Ordered -CXR: Completed documented as of this encounter (statuses as of 08/03/2022) [facility] History of Past illness Narrative* Problem [...] 56, Troponin T .37 on admission to [facility] Wide-complex tachycardia 04/28/2012 012 Overview: Presented to OSH 04/28/12 in setting acute MT with wide complex tachycardia SVT versus VT. Given adenosine x2 without effect, diltiazem bolus and infusion with no effect. Spontaneous conversion to NSR. Had short run of wide complex tachycardia upon arrival to [facility] from [facility]. Pre-op evaluation 04/28/2012 05/01/2012 Overview: Preoperative evaluation for CABG. Not ReDo -Carotids: Ordered -Vein Mapping: Ordered -Bedside PFTs: Ordered -Formal TTE: Ordered -CXR: Completed documented as of this encounter (statuses as of 08/07/2022) [facility] History of Past illness Narrative* Problem [...] 56, Troponin T .37 on admission to [facility] Wide-complex tachycardia 04/28/2012 012 Overview: Presented to OSH 04/28/12 in setting acute MT with wide complex tachycardia SVT versus VT. Given adenosine x2 without effect, diltiazem bolus and infusion with no effect. Spontaneous conversion to NSR. Had short run of wide complex tachycardia upon arrival to [facility] from [facility]. Pre-op evaluation 04/28/2012 05/01/2012 Overview: Preoperative evaluation for CABG. Not ReDo -Carotids: Ordered -Vein Mapping: Ordered -Bedside PFTs: Ordered -Formal TTE: Ordered -CXR: Completed documented as of this encounter (statuses as of 08/17/2022) [facility] History of Past illness Narrative* Problem [...] 56, Troponin T .37 on admission to [facility] Wide-complex tachycardia 04/28/2012 012 Overview: Presented to OSH 04/28/12 in setting acute MT with wide complex tachycardia SVT versus VT. Given adenosine x2 without effect, diltiazem bolus and infusion with no effect. Spontaneous conversion to NSR. Had short run of wide complex tachycardia upon arrival to [facility] from [facility]. Pre-op evaluation 04/28/2012 05/01/2012 Overview: Preoperative evaluation for CABG. Not ReDo -Carotids: Ordered -Vein Mapping: Ordered -Bedside PFTs: Ordered -Formal TTE: Ordered -CXR: Completed documented as of this encounter (statuses as of 09/03/2022) [facility] History of Past illness Narrative* Problem [...] 56, Troponin T .37 on admission to [facility] Wide-complex tachycardia 04/28/2012 012 Overview: Presented to OSH 04/28/12 in setting acute MT with wide complex tachycardia SVT versus VT. Given adenosine x2 without effect, diltiazem bolus and infusion with no effect. Spontaneous conversion to NSR. Had short run of wide complex tachycardia upon arrival to [facility] from [facility]. Pre-op evaluation 04/28/2012 05/01/2012 Overview: Preoperative evaluation for CABG. Not ReDo -Carotids: Ordered -Vein Mapping: Ordered -Bedside PFTs: Ordered -Formal TTE: Ordered -CXR: Completed documented as of this encounter (statuses as of 09/07/2022) [facility] History of Past illness Narrative* Problem [...] 56, Troponin T .37 on admission to [facility] Wide-complex tachycardia 04/28/2012 012 Overview: Presented to OSH 04/28/12 in setting acute MT with wide complex tachycardia SVT versus VT. Given adenosine x2 without effect, diltiazem bolus and infusion with no effect. Spontaneous conversion to NSR. Had short run of wide complex tachycardia upon arrival to [facility] from [facility]. Pre-op evaluation 04/28/2012 05/01/2012 Overview: Preoperative evaluation for CABG. Not ReDo -Carotids: Ordered -Vein Mapping: Ordered -Bedside PFTs: Ordered -Formal TTE: Ordered -CXR: Completed documented as of this encounter (statuses as of 10/08/2022) [facility] History of Past illness Narrative* Problem [...] 56, Troponin T .37 on admission to [facility] Wide-complex tachycardia 04/28/2012 012 Overview: Presented to OSH 04/28/12 in setting acute MT with wide complex tachycardia SVT versus VT. Given adenosine x2 without effect, diltiazem bolus and infusion with no effect. Spontaneous conversion to NSR. Had short run of wide complex tachycardia upon arrival to [facility] from [facility]. Pre-op evaluation 04/28/2012 05/01/2012 Overview: Preoperative evaluation for CABG. Not ReDo -Carotids: Ordered -Vein Mapping: Ordered -Bedside PFTs: Ordered -Formal TTE: Ordered -CXR: Completed documented as of this encounter (statuses as of 10/26/2022) [facility] History of Past illness Narrative* Problem [...] 56, Troponin T .37 on admission to [facility] Wide-complex tachycardia 04/28/2012 012 Overview: Presented to OSH 04/28/12 in setting acute MT with wide complex tachycardia SVT versus VT. Given adenosine x2 without effect, diltiazem bolus and infusion with no effect. Spontaneous conversion to NSR. Had short run of wide complex tachycardia upon arrival to [facility] from [facility]. Pre-op evaluation 04/28/2012 05/01/2012 Overview: Preoperative evaluation for CABG. Not ReDo -Carotids: Ordered -Vein Mapping: Ordered -Bedside PFTs: Ordered -Formal TTE: Ordered -CXR: Completed documented as of this encounter (statuses as of 10/26/2022) [facility] History of Past illness Narrative* Problem [...] 56, Troponin T .37 on admission to [facility] Wide-complex tachycardia 04/28/2012 012 Overview: Presented to OSH 04/28/12 in setting acute MT with wide complex tachycardia SVT versus VT. Given adenosine x2 without effect, diltiazem bolus and infusion with no effect. Spontaneous conversion to NSR. Had short run of wide complex tachycardia upon arrival to [facility] from [facility]. Pre-op evaluation 04/28/2012 05/01/2012 Overview: Preoperative evaluation for CABG. Not ReDo -Carotids: Ordered -Vein Mapping: Ordered -Bedside PFTs: Ordered -Formal TTE: Ordered -CXR: Completed documented as of this encounter (statuses as of 10/31/2022) [facility] History of Past illness Narrative* Problem [...] 56, Troponin T .37 on admission to [facility] Wide-complex tachycardia 04/28/2012 012 Overview: Presented to OSH 04/28/12 in setting acute MT with wide complex tachycardia SVT versus VT. Given adenosine x2 without effect, diltiazem bolus and infusion with no effect. Spontaneous conversion to NSR. Had short run of wide complex tachycardia upon arrival to [facility] from CICU. Pre-op evaluation 04/28/2012 05/01/2012 Overview: Preoperative evaluation for CABG. Not ReDo -Carotids: Ordered -Vein Mapping: Ordered -Bedside PFTs: Ordered -Formal TTE: Ordered -CXR: Completed documented as of this encounter (statuses as of 11/02/2022) [facility] History of Past illness Narrative* Problem [...] 56, Troponin T .37 on admission to [facility] Wide-complex tachycardia 04/28/2012 012 Overview: Presented to OSH 04/28/12 in setting acute MT with wide complex tachycardia SVT versus VT. Given adenosine x2 without effect, diltiazem bolus and infusion with no effect. Spontaneous conversion to NSR. Had short run of wide complex tachycardia upon arrival to [facility] from CICU. Pre-op evaluation 04/28/2012 05/01/2012 Overview: Preoperative evaluation for CABG. Not ReDo -Carotids: Ordered -Vein Mapping: Ordered -Bedside PFTs: Ordered -Formal TTE: Ordered -CXR: Completed documented as of this encounter (statuses as of 11/07/2022) [facility] History of Past illness Narrative* Problem [...] 56, Troponin T .37 on admission to [facility] Wide-complex tachycardia 04/28/2012 012 Overview: Presented to OSH 04/28/12 in setting acute MT with wide complex tachycardia SVT versus VT. Given adenosine x2 without effect, diltiazem bolus and infusion with no effect. Spontaneous conversion to NSR. Had short run of wide complex tachycardia upon arrival to [facility] from CICU. Pre-op evaluation 04/28/2012 05/01/2012 Overview: Preoperative evaluation for CABG. Not ReDo -Carotids: Ordered -Vein Mapping: Ordered -Bedside PFTs: Ordered -Formal TTE: Ordered -CXR: Completed documented as of this encounter (statuses as of 11/29/2022) [facility] History of Past illness Narrative* Problem [...] 56, Troponin T .37 on admission to [facility] Wide-complex tachycardia 04/28/2012 012 Overview: Presented to OSH 04/28/12 in setting acute MT with wide complex tachycardia SVT versus VT. Given adenosine x2 without effect, diltiazem bolus and infusion with no effect. Spontaneous conversion to NSR. Had short run of wide complex tachycardia upon arrival to [facility] from CICU. Pre-op evaluation 04/28/2012 05/01/2012 Overview: Preoperative evaluation for CABG. Not ReDo -Carotids: Ordered -Vein Mapping: Ordered -Bedside PFTs: Ordered -Formal TTE: Ordered -CXR: Completed documented as of this encounter (statuses as of 11/30/2022) [facility] History of Past illness Narrative* Problem [...] 56, Troponin T .37 on admission to [facility] Wide-complex tachycardia 04/28/201205/05/ 012 Overview: Presented to OSH 04/28/12 in setting acute MT with wide complex tachycardia SVT versus VT. Given adenosine x2 without effect, diltiazem bolus and infusion with no effect. Spontaneous conversion to NSR. Had short run of wide complex tachycardia upon arrival to [facility] from CICU. Pre-op evaluation 04/28/2012 05/01/2012 Overview: Preoperative evaluation for CABG. Not ReDo -Carotids: Ordered -Vein Mapping: Ordered -Bedside PFTs: Ordered -Formal TTE: Ordered -CXR: Completed documented as of this encounter (statuses as of 12/03/2022) [facility] History of Past illness Narrative* Problem [...] 56, Troponin T .37 on admission to [facility] Wide-complex tachycardia 04/28/2012 012 Overview: Presented to OSH 04/28/12 in setting acute MT with wide complex tachycardia SVT versus VT. Given adenosine x2 without effect, diltiazem bolus and infusion with no effect. Spontaneous conversion to NSR. Had short run of wide complex tachycardia [facility] evaluation 04/28/2012 05/01/2012 Overview: Preoperative evaluation for CABG. Not ReDo -Carotids: Ordered -Vein Mapping: Ordered -Bedside PFTs: Ordered -Formal TTE: Ordered -CXR: Completed documented as of this encounter (statuses as of 02/21/2023) [facility] History of Past illness Narrative* Problem [...] 56, Troponin T .37 on admission to [facility] Wide-complex tachycardia 04/28/2012 Overview: Presented to OSH 04/28/12 in setting acute MT with wide complex tachycardia SVT versus VT. Given adenosine x2 without effect, diltiazem bolus and infusion with no effect. Spontaneous conversion to NSR. Had short run of wide complex tachycardia upon arrival to [facility] from CICU. Pre-op evaluation 04/28/2012 05/01/2012 Overview: Preoperative evaluation for CABG. Not ReDo -Carotids: Ordered -Vein Mapping: Ordered -Bedside PFTs: Ordered -Formal TTE: Ordered -CXR: Completed documented as of this encounter (statuses as of 04/27/2023) [facility] History of Past illness Narrative* Problem [...] 56, Troponin T .37 on admission to [facility] Wide-complex tachycardia 04/28/2012 Overview: Presented to OSH 04/28/12 in setting acute MT with wide complex tachycardia SVT versus VT. Given adenosine x2 without effect, diltiazem bolus and infusion with no effect. Spontaneous conversion to NSR. Had short run of wide complex tachycardia upon arrival to [facility] from CICU. Pre-op evaluation 04/28/2012 05/01/2012 Overview: Preoperative evaluation for CABG. Not ReDo -Carotids: Ordered -Vein Mapping: Ordered -Bedside PFTs: Ordered -Formal TTE: Ordered -CXR: Completed documented as of this encounter (statuses as of 05/09/2023) [facility] History of Past illness Narrative* Problem [...] 56, Troponin T .37 on admission to [facility] Wide-complex tachycardia 04/28/2012 Overview: Presented to OSH 04/28/12 in setting acute MT with wide complex tachycardia SVT versus VT. Given adenosine x2 without effect, diltiazem bolus and infusion with no effect. Spontaneous conversion to NSR. Had short run of wide complex tachycardia [facility] Pre-op evaluation 04/28/2012 05/01/2012 Overview: Preoperative evaluation for CABG. Not ReDo -Carotids: Ordered -Vein Mapping: Ordered -Bedside PFTs: Ordered -Formal TTE: Ordered -CXR: Completed documented as of this encounter (statuses as of 08/23/2023) [facility] History of Past illness Narrative* Problem [...] 56, Troponin T .37 on admission to [facility] Wide-complex tachycardia 04/28/2012 Overview: Presented to OSH 04/28/12 in setting acute MT with wide complex tachycardia SVT versus VT. Given adenosine x2 without effect, diltiazem bolus and infusion with no effect. Spontaneous conversion to NSR. Had short run of wide complex tachycardia [facility] Pre-op evaluation 04/28/2012 05/01/2012 Overview: Preoperative evaluation for CABG. Not ReDo -Carotids: Ordered -Vein Mapping: Ordered -Bedside PFTs: Ordered -Formal TTE: Ordered -CXR: Completed documented as of this encounter (statuses as of 08/27/2023) [facility] Diagnosis Malignant neoplasm of prostate (HCC)- Primary Malignant neoplasm of prostate [facility] Diagnosis Unspecified hypothyroidism- Primary Hypercholesterolemia Pure hypercholesterolemia Abnormal finding of blood chemistry, unspecified [facility] Diagnosis Malignant neoplasm of prostate (HCC)- Primary Malignant neoplasm of prostate [facility] Diagnosis Chronic systolic heart failure (HCC)- Primary Chronic systolic heart failure [facility] Diagnosis Mitral valve insufficiency, unspecified etiology- Primary Chronic systolic heart failure (HCC) Chronic systolic heart failure [facility] Diagnosis Bilateral carotid artery stenosis- Primary Occlusion and stenosis of carotid artery without mention of cerebral infarction [facility] Diagnosis 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- Primary Heart failure, [...] stenosis, asymptomatic, bilateral [facility] Diagnosis Chronic systolic heart failure (HCC)- Primary Chronic systolic heart failure 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 [facility] Diagnosis Malignant neoplasm of prostate (HCC)- Primary Malignant neoplasm of prostate [facility] Diagnosis Chronic systolic heart failure (HCC) Chronic systolic heart failure 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 [facility] Diagnosis 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- Primary Heart failure, acute systolic (HCC) Acute systolic heart failure Preop testing Preoperative examination, unspecified Carotid stenosis, asymptomatic, bilateral Preoperative cardiovascular examination Pre-operative cardiovascular examination [facility] Diagnosis 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 kidney disease, unspecified CKD stage, unspecified whether snf insulin use (HCC)- Primary PVD (peripheral vascular disease) ([facility]) Peripheral vascular disease, unspecified Atherosclerotic heart disease of [place] coronary artery with other forms of angina pectoris ([facility]) [facility] Diagnosis Chronic 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)- Primary Chronic combined systolic and diastolic heart failure 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 Essential hypertension Unspecified essential hypertension Hx of CABG Postsurgical aortocoronary bypass status Mixed hyperlipidemia Systolic heart failure, unspecified HF chronicity (HCC) 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 kidney disease, unspecified CKD stage, 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) PVD (peripheral vascular disease) ([facility]) Peripheral vascular disease, unspecified Atherosclerotic heart disease of [place]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) Mitral valve insufficiency, unspecified etiology [facility] Diagnosis Atherosclerosis of [place] coronary artery, unspecified whether angina present, unspecified whether [place] or transplanted heart- Primary [facility] Diagnosis Mitral valve insufficiency, unspecified etiology- Primary HFrEF (heart failure with reduced ejection fraction) (HCC) Heart failure, unspecified SOB (shortness of breath) Shortness of breath Hx of CABG Postsurgical aortocoronary bypass status 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 Essential hypertension Unspecified essential hypertension [facility] Diagnosis Severe mitral regurgitation- Primary Mitral valve disorders Cardiomyopathy, ischemic Other specified forms of chronic ischemic heart disease S/P CABG (coronary artery bypass graft) Postsurgical aortocoronary bypass status Sore throat Acute pharyngitis Unspecified severe protein-calorie malnutrition (HCC) [facility] Diagnosis IRB [id number] Empower Assessment of the CARILLON Mitral Contour System in Treating Functional Mitral Regurgitation Associated with Heart Failure PI: Hussein- Primary [facility] Diagnosis Study name: EMPOWER Trial IRB# [id number] Primary [facility]* Diagnosis Atherosclerotic heart disease of [place]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)- Primary 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) Chronic systolic [...] protein-calorie malnutrition (HCC) [facility]* Diagnosis 18 [facility] Study- Primary [facility] Diagnosis EMPOWER Trial IRB# [id number] Screening visit- Primary Examination of participant in clinical trial [facility]* Diagnosis Severe mitral regurgitation- Primary Mitral valve disorders Examination of participant in clinical trial SANTILLAN (dyspnea on exertion) Other dyspnea and respiratory abnormality [facility]* Diagnosis Mitral valve insufficiency, unspecified etiology- Primary [facility] Mitral valve insufficiency, unspecified etiology- Primary [facility] Diagnosis Acute decompensated heart failure (HCC) Congestive heart failure, unspecified Mitral valve insufficiency, unspecified etiology [facility] Diagnosis Atherosclerotic heart disease of [place]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)- Primary [facility] Diagnosis Dental caries- Primary Unspecified dental caries Pre-operative clearance Preoperative examination, unspecified Non-rheumatic mitral regurgitation Mitral valve disorders Severe mitral regurgitation Mitral valve disorders [facility]* Diagnosis Severe mitral regurgitation- Primary Mitral valve disorders Status post implantation of mitral valve leaflet clip [facility] Diagnosis 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 [facility]* Diagnosis Cerebrovascular accident (CVA) due to other mechanism ([facility])- Primary Cataract, nuclear sclerotic senile, bilateral [facility]* Diagnosis 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 Carotid stenosis, 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, left Atrial fibrillation, unspecified type ([facility]) Mixed hyperlipidemia Essential hypertension Unspecified essential hypertension [facility]* Diagnosis Cardiomyopathy, ischemic- Primary Other specified forms of chronic ischemic heart disease S/P mitral valve clip implantation Stage 3b chronic kidney disease ([facility]) [facility] this [facility] Diagnosis Coronary artery disease involving coronary bypass graft of [place] heart without angina pectoris- Primary Chronic systolic heart failure (HCC) Chronic systolic heart failure S/P CABG (coronary artery bypass graft) Postsurgical aortocoronary bypass status Non-rheumatic mitral regurgitation Mitral valve disorders Severe mitral regurgitation Mitral valve disorders [facility] Diagnosis History of prostate cancer- Primary Personal history of malignant neoplasm of prostate [facility] Diagnosis Chronic systolic heart failure (HCC)- Primary Chronic systolic heart failure Non-rheumatic mitral regurgitation Mitral valve disorders [facility]* Diagnosis S/P AVR (aortic valve replacement) Heart valve replaced by other means [facility] Diagnosis SANTILLAN (dyspnea on exertion)- Primary Other dyspnea and respiratory abnormality Mitral valve insufficiency, unspecified etiology [facility]* Diagnosis Frequent PVCs- Primary Other premature beats [facility]* Diagnosis PVC (premature ventricular contraction)- Primary Other premature beats [facility] Diagnosis PVC (premature ventricular contraction)- Primary Other premature beats [facility]* Diagnosis Carotid stenosis, 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, left- Primary Pacemaker reprogramming/check Fitting and adjustment of cardiac pacemaker [facility] Diagnosis Frequent PVCs Other premature beats Pacemaker reprogramming/check Fitting and adjustment of cardiac pacemaker [facility]* Diagnosis Frequent PVCs- Primary Other premature beats Heart failure, acute systolic (HCC) Acute systolic heart failure Atherosclerotic heart disease of [place]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) Carotid stenosis, 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, left Coronary artery disease involving coronary bypass graft of [place] heart without angina pectoris Acute on chronic systolic congestive heart failure (HCC) Acute on chronic systolic heart failure S/P CABG (coronary artery bypass graft) Postsurgical aortocoronary bypass status Paroxysmal atrial fibrillation (HCC) Atrial fibrillation Pacemaker reprogramming/check Fitting and adjustment of cardiac pacemaker [facility] Diagnosis Pacemaker reprogramming/check Fitting and adjustment of cardiac pacemaker Pacemaker reprogramming/check Fitting and adjustment of cardiac pacemaker [facility] Diagnosis 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 Heart failure, acute systolic (HCC) Acute systolic heart failure Acute on chronic systolic congestive heart failure (HCC) Acute on chronic systolic heart failure PVD (peripheral vascular disease) (HCC) Peripheral vascular disease, unspecified S/P CABG (coronary artery bypass graft) Postsurgical aortocoronary bypass status Pacemaker reprogramming/check Fitting and adjustment of cardiac pacemaker [facility]* Diagnosis Heart failure, acute systolic (HCC)- Primary Acute systolic heart failure Acute on chronic systolic congestive heart failure (HCC) Acute on chronic systolic heart failure Carotid stenosis, 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, left Pacemaker reprogramming/check Fitting and adjustment of cardiac pacemaker [facility] this encounter [facility]* Diagnosis Chronic systolic heart failure (HCC)- Primary Chronic systolic heart failure Pacemaker reprogramming/check Fitting and adjustment of cardiac pacemaker [facility]ructionsNot on filedocumented in this encounterPro[facility] SystemInstructionsNot on filedocumented in this encounterPro[facility] SystemInstructionsNot on filedocumented in this encounterProSelect [facility] [place] System InstructionsNot on filedocumented in this encounterSelect [facility], Inc SystemReason for referral (narrative)* Outpatient Procedure (Routine) - Authorized Specialty Diagnoses / Procedures Referred By Contthee t Referred To [facility] Diagnoses Chronic systolic heart failure (HCC) Procedures ECHO ECHO TTHRC R-T 2D W/WOM-MODE COMPL SPEC&COLR D Zahra Pierre MD [address] [place] [address] [address] Referral ID Status Reason Start Date Expiration Date Visits Requested Visits Authorized [id number] Authorized Auto-Generat ed Referral 06/06/2022 06/06/2023 1 1 * Outpatient Procedure (Routine) - Authorized Specialty Diagnoses / Procedures Referred By Contac t Referred To Contact [facility] [place] Diagnoses Chronic systolic heart failure (HCC) Procedures ECG COMPLETE ECG ROUTINE ECG W/LEAST 12 LDS W/I&R aZhra Pierre MD [address] [place] [address] [address] Referral ID Status Reason Start Date Expiration Date Visits Requested Visits Authorized [id number] Authorized Auto-Generat ed Referral 06/06/2022 06/06/2023 1 1 [facility] for referral (narrative)* Outpatient Procedure (Routine) - Authorized Specialty Diagnoses / Procedures [facility] Referred To Contact [facility] Diagnoses Bilateral carotid artery stenosis Procedures US CAROTID ARTERIES [facility] DUPLEX SCAN EXTRACRANIAL ART COMPL BI STUDY John Jefferson MD [address] [place] [address] [place] [address] Referral ID Status Reason Start Date Expiration Date Visits Requested Visits Authorized [id number] Authorized Auto-Generat ed Referral 2 08/03/2023 1 1 [facility] for referral (narrative)* Diagnostic Procedure Only (Routine) - Pending Review Specialty Diagnoses / Procedures [facility] Referred To Contact [facility] Diagnoses Chronic systolic heart failure (HCC) 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 Procedures NM PET/CT CARDIAC VIABILITY MYOCRD IMG PET PRFUJ W/METAB 2RTRACER CNCRNT CT Zahra Pierre MD [address] [place] [address] [facility] [address] [place] [address] Referral ID Status Reason Start Date Expiration Date Visits Requested Visits Authorized [id number] Pending Review Auto-Generat ed Referral 2 10/06/2023 1 1 * Diagnostic Procedure Only (Routine) - Pending Review Specialty Diagnoses / Procedures Referred By Jordon rao Referred To Contact [facility] Diagnoses Chronic systolic heart failure (HCC) 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 Procedures NM PET/CT CARDIAC PERF REST/STRESS MYOCRD IMG PET 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 [facility] Apodaca MD [address] [place] [address] [facility] [address] [place] [address] Referral ID Status Reason Start Date Expiration Date Visits Requested Visits Authorized [id number] Pending Review Auto-Generat ed Referral 2 10/06/2023 1 1 [facility] for referral (narrative)* Diagnostic Procedure Only (Routine) - Closed Specialty Diagnoses / Procedures Referred By Jordon rao Referred To Contact [facility] Diagnoses Chronic systolic heart failure (HCC) 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 Procedures NM PET/CT CARDIAC VIABILITY MYOCRD IMG PET PRFUJ W/METAB 2RTRACER [facility] [address] [place] [address] Molecular & Functional Imaging [address] [place] [address] Referral ID Status Reason Start Date Expiration Date V isits Requested Visits Authorized [id number] Closed Auto-Generate d Referral 09/06/2022 10/06/2023 1 1 * Diagnostic Procedure Only (Routine) - Closed Specialty Diagnoses / Procedures [facility] Ref[facility] To Contact MOLECULAR & FUNCTIONAL IMAGING Diagnoses Chronic systolic heart failure (HCC) 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 Procedures NM PET/CT CARDIAC PERF REST/STRESS MYOCRD IMG PET 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 CNCRNT CT Zahra Pierre MD [address] [place] [phone] Molecular & Functional Imaging [address] [place] [address] Referral ID Status Reason Start Date Expiration Date V isits Requested Visits Authorized [id number] Closed Auto-Generate d Referral 09/06/2022 10/06/2023 1 1 [facility] for referral (narrative)* Outpatient Procedure (Routine) - Authorized Specialty Diagnoses / Procedures [facility] Diagnoses Chronic 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) Procedures ECHO ECHO TTHRC R-T 2D W/WOM-MODE COMPL SPEC&COLR D Virgil Carrillo MD [address] [place] [id number] [place] [address] Referral ID Status Reason Start Date Expiration Date Visits Requested Visits Authorized [id number] Authorized Auto-Generat ed Referral 10/30/2023 10/29/2024 1 1 * Outpatient Procedure (Routine) - Authorized Specialty Diagnoses / Procedures [facility] To [facility] Diagnoses Chronic 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) Procedures ECG COMPLETE ECG ROUTINE ECG W/LEAST 12 LDS W/I&R Virgil Carrillo MD [address] [place] [id number] [facility] [place] [address] [place] [address] Referral ID Status Reason Start Date Expiration Date Visits Requested Visits Authorized [id number] Authorized Auto-Generat ed Referral 10/30/2023 10/29/2024 1 1 * Transition of Care (Routine) - Ref Not Required Specialty Diagnoses / Procedures Referred By Contac t Referred To Contact Procedures CARDIOVASCULAR MEDICINE OP FOLLOW UP APPT ORDER Virgil Carrillo MD [address] [place] [address] Referral ID Status Reason Start Date Expiration Date Visits Requested Visits Authorized [id number] Ref Not Required PCP Requested Referral 01/28/2024 10/29/2024 1 1 [facility] for referral (narrative)* Outpatient Procedure (Routine) - Pending Review Specialty Diagnoses / Procedures Referred By Contac t Referred To Contact [facility] [place] Diagnoses Atherosclerosis of naknek coronary artery, unspecified whether angina present, unspecified whether naknek or transplanted heart Procedures ECHO ECHO TTHRC R-T 2D W/WOM-MODE COMPL SPEC&COLR D Virgil Carrillo MD [address] [place] [address] [facility] [place] [address] [place] [address] Referral ID Status Reason Start Date Expiration Date Visits Requested Visits Authorized [id number] Pending Review Auto-Generat ed Referral 11/26/2023 11/25/2024 1 1 * Outpatient Procedure (Routine) - Authorized Specialty Diagnoses / Procedures Referred By Contac t Referred To Contact [facility] [place] Diagnoses Atherosclerosis of naknek coronary artery, unspecified whether angina present, unspecified whether naknek or transplanted heart Procedures ECG COMPLETE ECG ROUTINE ECG W/LEAST 12 LDS W/I&R Virgil Carrillo MD [address] [place] [address] [facility] [address] [address] Referral ID Status Reason Start Date Expiration Date Visits Requested Visits Authorized [id number] Authorized Auto-Generat ed Referral 11/26/2023 11/25/2024 1 1 [facility] for referral (narrative)* Outpatient Procedure (Routine) - Pending Review Specialty Diagnoses / Procedures Referred By Contac t Referred To Contact [facility] [place] Diagnoses HFrEF (heart failure with reduced ejection fraction) (HCC) Mitral valve insufficiency, unspecified etiology Procedures ECHO ECHO TTHRC R-T 2D W/WOM-MODE COMPL SPEC&COLR D Carmelina Ramos APRN.VEGETABLE BUNCHER [address] [place] [address] [facility] [address] [address] Referral ID Status Reason Start Date Expiration Date Visits Requested Visits Authorized [id number] Pending Review Auto-Generat ed Referral 12/23/2023 12/22/2024 1 1 * Outpatient Procedure (Routine) - Pending Review Specialty Diagnoses / Procedures Referred By Contac t Referred To Contact [facility] Diagnoses HFrEF (heart failure with reduced ejection fraction) (HCC) Mitral valve insufficiency, unspecified etiology Procedures ECG COMPLETE ECG ROUTINE ECG W/LEAST 12 LDS W/I&R Carmelina Ramos APRN.VEGETABLE BUNCHER [address] [place] [address] [facility] [address] [address] Referral ID Status Reason Start Date Expiration Date Visits Requested Visits Authorized [id number] Pending Review Auto-Generat ed Referral 12/23/2023 12/22/2024 1 1 * Transition of Care (Routine) - Ref Not Required Specialty Diagnoses / Procedures Referred By Contac t Referred To Contact [facility] Diagnoses Mitral valve insufficiency, unspecified etiology Procedures CARDIOVASCULAR MEDICINE OP FOLLOW UP APPT ORDER Carmelina Ramos APRN.CNP [address] [place] [address] [address] Referral ID Status Reason Start Date Expiration Date Visits Requested Visits Authorized [id number] Ref Not Required PCP Requested Referral 03/23/2024 12/22/2024 1 1 [facility] for referral (narrative)* Outpatient Procedure (Routine) - Pending Review Specialty Diagnoses / Procedures Referred By Contac t Referred To Contact [facility] Diagnoses Severe mitral regurgitation Cardiomyopathy, ischemic S/P CABG (coronary artery bypass graft) Procedures ECHO ECHO TTHRC R-T 2D W/WOM-MODE COMPL SPEC&COLR D Efren Brady MD [address] [place] [address] [address] Referral ID Status Reason Start Date Expiration Date Visits Requested Visits Authorized [id number] Pending Review Auto-Generat ed Referral 12/26/2023 12/25/2024 1 1 * Outpatient Procedure (Routine) - Pending Review Specialty Diagnoses / Procedures Referred By Contac t Referred To Contact [facility] Diagnoses Severe mitral regurgitation Cardiomyopathy, ischemic S/P CABG (coronary artery bypass graft) Procedures ECG COMPLETE ECG ROUTINE ECG W/LEAST 12 LDS W/I&R Efren Brady MD [address] [place] [address] [address] Referral ID Status Reason Start Date Expiration Date Visits Requested Visits Authorized [id number] Pending Review Auto-Generat ed Referral 12/26/2023 12/25/2024 1 1 * Transition of Care (Routine) - Ref Not Required Specialty Diagnoses / Procedures Referred By Morrisac t Referred To Contact [facility] [place] Procedures CARDIOVASCULAR MEDICINE OP FOLLOW UP APPT ORDER Efren Brady MD [address] [place] [address] [address] Referral ID Status Reason Start Date Expiration Date Visits Requested Visits Authorized [id number] Ref Not Required PCP Requested Referral 03/26/2024 12/25/2024 1 1 * Consult, Test, Treat (Routine) - Authorized Specialty Diagnoses / Procedures Referred By Jordon t Referred To Contact Ent - Otolaryngology Diagnoses Sore throat Procedures CONSULT TO ENT OFFICE/OUTPATIENT [facility] 60 MINUTES Efren Brady MD [address] [place] [address] Referral ID Status Reason Start Date Expiration Date Visits Requested Visits Authorized [id number] Authorized PCP Requested Referral 12/26/2023 12/25/2024 1 1 [facility] for referral (narrative)* Outpatient Procedure (Routine) - Authorized Specialty Diagnoses / Procedures Referred By Jordon rao Referred To Contact [facility] Diagnoses Severe mitral regurgitation Status post implantation of mitral valve leaflet clip Procedures ECG COMPLETE ECG ROUTINE ECG W/LEAST 12 LDS W/I&R Efren Brady MD [address] [place] [address] [address] Referral ID Status Reason Start Date Expiration Date Visits Requested Visits Authorized [id number] Authorized Auto-Generat ed Referral 02/27/2024 2025 1 1 * Outpatient Procedure (Routine) - Authorized Specialty Diagnoses / Procedures Referred By Contac t Referred To Contact [facility] Diagnoses Severe mitral regurgitation Status post implantation of mitral valve leaflet clip Procedures ECG COMPLETE ECG ROUTINE ECG W/LEAST 12 LDS W/I&R Efren Brady MD [address] [place] [address] [place] [phone] Referral ID Status Reason Start Date Expiration Date Visits Requested Visits Authorized [id number] Authorized Auto-Generat ed Referral 02/20/2024 2025 1 1 * Outpatient Procedure (Routine) - Authorized Specialty Diagnoses / Procedures Referred By Contac t Referred To Contact [facility] [place] Diagnoses Severe mitral regurgitation Status post implantation of mitral valve leaflet clip Procedures ECHO ECHO TTHRC R-T 2D W/WOM-MODE COMPL SPEC&[place] [address] [place] [address] [place] [address] Referral ID Status Reason Start Date Expiration Date Visits Requested Visits Authorized [id number] Authorized Auto-Generat ed Referral 02/20/2024 2025 1 1 [facility] for referral (narrative)* Diagnostic Procedure Only (Routine) - Pending Review Specialty Diagnoses / Procedures Referred By Contac t Referred To Contact [facility] Diagnoses Carotid stenosis, 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, left Procedures US CAROTID BILATERAL Luís Skinner, VEGETABLE BUNCHER [address] [place] [phone] [facility] [place] [address] Referral ID Status Reason Start Date Expiration Date Visits Requested Visits Authorized [id number] Pending Review Auto-Generat ed Referral 03/18/2024 04/17/2025 1 1 [facility] for referral (narrative)* Outpatient Procedure (Routine) - New Request Specialty Diagnoses / Procedures Referred By Contac t Referred To Contact [facility] [place] Diagnoses Frequent PVCs Procedures ECG COMPLETE ECG ROUTINE ECG W/LEAST 12 LDS W/I&R Nj Wei MD [address] [place] [phone] [facility] [address] [place] [phone] Referral ID Status Reason Start Date Expiration Date Visits Requested Visits Authorized [id number] New Request Auto-Generat ed Referral 07/27/2025 1 1 [facility] for referral (narrative)* Diagnostic Procedure Only (Routine) - New Request Specialty Diagnoses / Procedures [facility] Ref[facility] To Contact [facility] Diagnoses Carotid stenosis, 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, left Procedures US CAROTID BILATERAL Luís Skinner, CRAIG [address] [place] [phone] [place] [phone] Referral ID Status Reason Start Date Expiration Date Visits Requested Visits Authorized [id number] New Request Auto-Generat ed Referral 08/18/2024 09/17/2025 1 1 [facility] for referral (narrative)* Outpatient Procedure (Routine) - Closed Specialty Diagnoses / Procedures [facility] Ref[facility] To Contact [facility] Diagnoses Pacemaker reprogramming/check Procedures CARDIAC IMPLANTABLE DEVICE CHECK Card Ep Device [facility] Main [address] [place] [phone] [facility] [address] [place] [address] Referral ID Status Reason Start Date Expiration Date V isits Requested Visits Authorized [id number] Closed Auto-Generate d Referral 08/17/2024 08/17/2025 1 1 * Outpatient Procedure (Routine) - Closed Specialty Diagnoses / Procedures [facility] Referred To Contact [facility] [place] Diagnoses Pacemaker reprogramming/check Procedures CARDIAC IMPLANTABLE DEVICE CHECK Card Ep Device Clinic Main [address] [place] [address] [facility] [place] [address] [place] [address] Referral ID Status Reason Start Date Expiration Date V isits Requested Visits Authorized [id number] Closed Auto-Generate d Referral 08/17/2024 08/17/2025 1 1 [facility] for visit Narrative* Consultation (Routine) - Authorized Specialty Diagnoses / Procedures Referred By Contac t Referred To Contact Cardiac Rehabilitation Diagnoses Chronic heart failure, unspecified heart failure type (CMS-HCC) Procedures Ambulatory referral to Cardiac Rehabilitation ([facility]) Ref Prov, [place] [address] [facility] Cardiac Rehab Billing [address] [place] [address] Referral ID Status Reason Start Date Expiration Date Visits Requested Visits Authorized [id number] Authorized Specialty Services Required 06/18/2024 06/18/2025 36 36 [facility] for visit Narrative* Consultation (Routine) - Authorized Specialty Diagnoses / Procedures Referred By Contac t Referred To Contact Cardiac Rehabilitation Diagnoses S/P AVR (aortic valve replacement) Procedures Ambulatory referral to [facility]iac Rehabilitation ([facility] [address] [place] [address] [facility] Cardiac Rehab Billing [address] [place] [address] Referral ID Status Reason Start Date Expiration Date Visits Requested Visits Authorized [id number] Authorized Specialty Services Required 06/24/2024 06/24/2025 36 36 [facility] for visit Narrative* Consultation (Routine) - Authorized Specialty Diagnoses / Procedures Referred By Contac t Referred To Contact Cardiac Rehabilitation Diagnoses S/P AVR (aortic valve replacement) Procedures Ambulatory referral to Cardiac Rehabilitation ([facility]) Samm Thompson MD [address] [place] [address] Phone: tel: fax: [facility] - Cardiac Rehab [address] [place] [address] Phone: tel:[phone] fax:[phone] Referral ID Status Reason Start Date Expiration Date Visits Requested Visits Authorized [id number] Authorized Specialty Services Required 06/24/2024 06/24/2025 36 36 [facility] for visit Narrative* Outpatient Procedure (Routine) - Closed Specialty Diagnoses / Procedures Referred By Jordon t Referred To Contact [facility] [place] Diagnoses Pacemaker reprogramming/check Procedures CARDIAC IMPLANTABLE DEVICE CHECK Card Ep Device Clinic Main [address] [place] [address] [facility] [address] [place] [address] Referral ID Status Reason Start Date Expiration Date V isits Requested Visits Authorized [id number] Closed Auto-Generate d Referral 08/17/2024 08/17/2025 1 1 [facility] Summary Purpose Family History No Family History Records FoundNo Family History Records FoundNo Family History Records FoundNo Family History Records FoundNo Family History Records FoundNo Family History Records FoundNo Family History Records FoundNo Family History Records FoundNo Family History Records Found Advance Directives No Advanced Directives Records Found Date Activated Date Inactivated Comments 07/22/2024 12:41 AM 07/26/2024 6:05 PM Question Answer Comments Full Code Order Discussed With: Patient Date Activated Date Inactivated Comments 05/09/2024 4:39 PM 05/16/2024 6:06 PM Question Answer Comments Full Code Order Discussed With: Patient Date Activated Date Inactivated Comments 05/06/2024 9:26 PM 05/09/2024 2:11 PM Question Answer Comments Full Code Order Discussed With: Patient Date Activated Date Inactivated Comments 03/02/2024 1:14 AM 03/05/2024 5:02 PM Question Answer Comments Full Code Order Discussed With: Patient Date Activated Date Inactivated Comments 05/09/2024 4:39 PM 05/16/2024 6:06 PM Question Answer Comments Full Code Order Discussed With: Patient Date Activated Date Inactivated Comments 05/06/2024 9:26 PM 05/09/2024 2:11 PM Question Answer Comments Full Code Order Discussed With: Patient Date Activated Date Inactivated Comments 03/02/2024 1:14 AM 03/05/2024 5:02 PM Question Answer Comments Full Code Order Discussed With: Patient Date Activated Date Inactivated Comments 05/06/2024 9:26 PM Date Activated Date Inactivated Comments 03/02/2024 1:14 AM 03/05/2024 5:02 PM Date Activated Date Inactivated Comments 03/02/2024 1:14 AM 03/05/2024 5:02 PM Documents on File Type Date Recorded 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 Expl 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 Advance Directive(s) 03/24/2019 7:11 AM Latest Code Status on File Code Status Date Activated Date Inactivated Comments Full Code 08/18/2021 11:48 AM 08/19/2021 7:30 PM Date Activated Date Inactivated Comments 03/02/2024 1:14 AM Date Activated Date Inactivated Comments 03/02/2024 1:14 AM 03/05/2024 5:02 PM Date Activated Date Inactivated Comments 05/09/2024 4:39 PM 05/16/2024 6:06 PM Date Activated Date Inactivated Comments 05/06/2024 9:26 PM 05/09/2024 2:11 PM Date Activated Date Inactivated Comments 03/02/2024 1:14 AM 03/05/2024 5:02 PM Date Activated Date Inactivated Comments 08/18/2021 11:48 AM 08/19/2021 7:30 PM Date Activated Date Inactivated Comments 07/22/2024 12:41 AM 07/26/2024 6:05 PM Date Activated Date Inactivated Comments 05/09/2024 4:39 PM 05/16/2024 6:06 PM Date Activated Date Inactivated Comments 05/06/2024 9:26 PM 05/09/2024 2:11 PM Date Activated Date Inactivated Comments 03/02/2024 1:14 AM 03/05/2024 5:02 PM Question Answer Comments Full Code Order Discussed With: Patient Reason for Referral Specialty Diagnoses / Procedures Referred By Jordon t Referred To Contact [facility] Diagnoses 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) Chronic systolic heart failure (HCC) S/P CABG (coronary artery bypass graft) Chronic 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) Acute on chronic clinical systolic heart failure (HCC) Stage 3b chronic kidney disease (HCC) Ischemic cardiomyopathy Non-ischemic cardiomyopathy (HCC) Shortness of breath Procedures CARDIOVASCULAR MEDICINE OP FOLLOW UP APPT ORDER Paulina Fernandes MD [address] [place] [address] [address] Referral ID Status Reason Start Date Expiration Date Visits Requested Visits Authorized [id number] Ref Not Required PCP Requested Referral 01/10/2024 01/09/2025 1 1 Specialty Diagnoses / Procedures Referred By Contac t Referred To Contact Nephrology Diagnoses Stage 3b chronic kidney disease (HCC) Procedures CONSULT TO NEPHROLOGY OFFICE/OUTPATIENT [facility] 60 [place] [address] [place] [address] Referral ID Status Reason Start Date Expiration Date Visits Requested Visits Authorized [id number] Authorized PCP Requested Referral 03/30/2024 03/30/2025 1 1 Specialty Diagnoses / Procedures Referred By Contac t Referred To Contact [facility] Diagnoses Cardiomyopathy, ischemic S/P mitral valve clip implantation Procedures ECHO ECHO TTHRC R-T 2D W/WOM-MODE COMPL SPEC&[place] [address] [place] [address] [address] [address] [address] Referral ID Status Reason Start Date Expiration Date Visits Requested Visits Authorized [id number] Authorized Auto-Generat ed Referral 03/30/2024 03/30/2025 1 1 Specialty Diagnoses / Procedures Referred By Contac t Referred To Contact [facility] Diagnoses Cardiomyopathy, ischemic S/P mitral valve clip implantation Procedures ECG COMPLETE ECG ROUTINE ECG W/LEAST 12 LDS W/I&[place] [address] [place] [address] [address] [address] Referral ID Status Reason Start Date Expiration Date Visits Requested Visits Authorized [id number] Authorized Auto-Generat ed Referral 03/30/2024 03/30/2025 1 1 Specialty Diagnoses / Procedures Referred By Contac t Referred To Contact [facility] Procedures CARDIOVASCULAR MEDICINE OP FOLLOW UP APPT ORDER Efren Brady MD [address] [place] [address] [facility] [address] [address] Referral ID Status Reason Start Date Expiration Date Visits Requested Visits Authorized [id number] Ref Not Required PCP Requested Referral 09/30/2024 03/30/2025 1 1 Specialty Diagnoses / Procedures Referred By Contac t Referred To Contact Cardiology Diagnoses Cardiomyopathy, ischemic S/P mitral valve clip implantation Procedures CONSULT TO CARDIOLOGY OFFICE/OUTPATIENT [facility] 60 MINUTES Efren Brady MD [address] [place], [place] [id number] Referral ID Status Reason Start Date Expiration Date Visits Requested Visits Authorized [id number] Authorized PCP Requested Referral 03/30/2024 03/30/2025 1 1 Specialty Diagnoses / Procedures Referred By Contac t Referred To Contact [facility] Procedures CARDIOVASCULAR MEDICINE OP FOLLOW UP APPT ORDER Carmela Fernandes MD [address] [place] [address] [facility] [place] [phone] Referral ID Status Reason Start Date Expiration Date Visits Requested Visits Authorized [id number] Ref Not Required PCP Requested Referral 06/08/2025 1 1 Specialty Diagnoses / Procedures Referred By Contac t Referred To Contact CT IMAGING Diagnoses Lung nodules Procedures CT CHEST W IVCON CAT SCAN OF CHEST CONTRAST Victor M Duval MD [address] [place] [address] [place] [address] Ct [facility] [place] [address] Referral ID Status Reason Start Date Expiration Date V isits Requested Visits Authorized [id number] Closed Auto-Generate d Referral 09/05/2021 10/05/2022 1 1 Specialty Diagnoses / Procedures Referred By Contac t Referred To Contact [facility] Procedures CARDIOVASCULAR MEDICINE [place] [address] [place] [address] [address] [address] Referral ID Status Reason Start Date Expiration Date Visits Requested Visits Authorized [id number] Ref Not Required PCP Requested Referral 05/21/2025 08/19/2025 1 1 Specialty Diagnoses / Procedures Referred By Contac t Referred To Contact [facility] Diagnoses Frequent PVCs Procedures LUNG DIFFUSION CAPACITY (DLCO) DIFFUSING CAPACITY Nj Wei MD [address] [place] [address] [facility] [place] [address] [place] [address] Referral ID Status Reason Start Date Expiration Date Visits Requested Visits Authorized [id number] New Request Auto-Generat ed Referral 08/19/2024 09/18/2025 1 1 Specialty Diagnoses / Procedures Referred By Contac t Referred To [facility] [place] Diagnoses Frequent PVCs Procedures SPIROMETRY BASELINE ONLY SPMTRY W/VC EXPIRATORY DANIEL W/WO MXML VOL VNTJ Nj Wei MD [address] [place] [address] [address] Referral ID Status Reason Start Date Expiration Date Visits Requested Visits Authorized [id number] New Request Auto-Generat ed Referral 08/19/2024 09/18/2025 1 1 Specialty Diagnoses / Procedures Referred By Contac t Referred To Contact [facility] [place] Diagnoses Amaurosis fugax Heart failure, acute systolic (HCC) Acute on chronic systolic congestive heart failure (HCC) PVD (peripheral vascular disease) (HCC) S/P CABG (coronary artery bypass graft) Procedures CARDIOVASCULAR MEDICINE OP FOLLOW UP APPT ORDER Carmela Fernandes MD [address] [place] [address] [facility] [address] [address] Referral ID Status Reason Start Date Expiration Date Visits Requested Visits Authorized [id number] Ref Not Required PCP Requested Referral 08/19/2024 08/19/2025 1 1 Additional Source Comments (unrecognized sect ion and content) No Status Records FoundNo Status Records FoundNo Status Records FoundNo Status Records FoundNo Status Records FoundNo Status Records FoundNo Status Records FoundNo Status Records FoundNo Status Records Found INFORMATION SOURCE (unrecogn ized section and content) DATE CREATED AUTHOR 07/29/2019 [facility] DATE CREATED AUTHOR AUTHOR'S ORGANIZ ATION 05/25/[address] [facility] DATE CREATED AUTHOR AUTHOR'S ORGANIZ ATION 02/22/2023 [facility] DATE CREATED AUTHOR AUTHOR'S ORGANIZ ATION 12/29/2023 [facility] DATE CREATED AUTHOR AUTHOR'S ORGANIZ ATION 03/02/2024 [facility] DATE CREATED AUTHOR AUTHOR'S ORGANIZ ATION 04/17/2024 [facility] DATE CREATED AUTHOR AUTHOR'S ORGANIZ ATION 05/13/2024 [facility] DATE CREATED AUTHOR AUTHOR'S ORGANIZ ATION 09/10/2024 [facility] DATE CREATED AUTHOR AUTHOR'S ORGANIZ ATION 09/12/2024 [facility] Source Comments (unrecognize d section and content) In the event this informatio n is protected by the Federal Confidentiality of Alcohol and Drug Abuse Patient Records regulations: The Federal rules restrict any use of the information to criminally investigate or prosecute any alcohol or drug abuse patient.[facility] the event this information is protected by the Federal Confidentiality of Alcohol and Drug Abuse Patient Records regulations: The Federal rules restrict any use of the information to criminally investigate or prosecute any alcohol or drug abuse patient.[facility] HospitalIn the event this information is protected by the Federal Confidentiality of Alcohol and Drug Abuse Patient Records regulations: The Federal rules restrict any use of the information to criminally investigate or prosecute any alcohol or drug abuse patient.[facility] HospitalIn the event this information is protected by the Federal Confidentiality of Alcohol and Drug Abuse Patient Records regulations: The Federal rules restrict any use of the information to criminally investigate or prosecute any alcohol or drug abuse patient.[facility] HospitalIn the event this information is protected by the Federal Confidentiality of Alcohol and Drug Abuse Patient Records regulations: The Federal rules restrict any use of the information to criminally investigate or prosecute any alcohol or drug abuse patient.[facility] HospitalIn the event this information is protected by the Federal Confidentiality of Alcohol and Drug Abuse Patient Records regulations: The Federal rules restrict any use of the information to criminally investigate or prosecute any alcohol or drug abuse patient.[facility] HospitalIn the event this information is protected by the Federal Confidentiality of Alcohol and Drug Abuse Patient Records regulations: The Federal rules restrict any use of the information to criminally investigate or prosecute any alcohol or drug abuse patient.[facility] HospitalIn the event this information is protected by the Federal Confidentiality of Alcohol and Drug Abuse Patient Records regulations: The Federal rules restrict any use of the information to criminally investigate or prosecute any alcohol or drug abuse patient.[facility] HospitalIn the event this information is protected by the Federal Confidentiality of Alcohol and Drug Abuse Patient Records regulations: The Federal rules restrict any use of the information to criminally investigate or prosecute any alcohol or drug abuse patient.[facility] HospitalIn the event this information is protected by the Federal Confidentiality of Alcohol and Drug Abuse Patient Records regulations: The Federal rules restrict any use of the information to criminally investigate or prosecute any alcohol or drug abuse patient.[facility] HospitalIn the event this information is protected by the Federal Confidentiality of Alcohol and Drug Abuse Patient Records regulations: The Federal rules restrict any use of the information to criminally investigate or prosecute any alcohol or drug abuse patient.[facility] HospitalIn the event this information is protected by the Federal Confidentiality of Alcohol and Drug Abuse Patient Records regulations: The Federal rules restrict any use of the information to criminally investigate or prosecute any alcohol or drug abuse patient.[facility] HospitalIn the event this information is protected by the Federal Confidentiality of Alcohol and Drug Abuse Patient Records regulations: The Federal rules restrict any use of the information to criminally investigate or prosecute any alcohol or drug abuse patient.[facility] HospitalIn the event this information is protected by the Federal Confidentiality of Alcohol and Drug Abuse Patient Records regulations: The Federal rules restrict any use of the information to criminally investigate or prosecute any alcohol or drug abuse patient.[facility] HospitalIn the event this information is protected by the Federal Confidentiality of Alcohol and Drug Abuse Patient Records regulations: The Federal rules restrict any use of the information to criminally investigate or prosecute any alcohol or drug abuse patient.[facility] HospitalIn the event this information is protected by the Federal Confidentiality of Alcohol and Drug Abuse Patient Records regulations: The Federal rules restrict any use of the information to criminally investigate or prosecute any alcohol or drug abuse patient.[facility] HospitalIn the event this information is protected by the Federal Confidentiality of Alcohol and Drug Abuse Patient Records regulations: The Federal rules restrict any use of the information to criminally investigate or prosecute any alcohol or drug abuse patient.[facility] HospitalIn the event this information is protected by the Federal Confidentiality of Alcohol and Drug Abuse Patient Records regulations: The Federal rules restrict any use of the information to criminally investigate or prosecute any alcohol or drug abuse patient.[facility] HospitalIn the event this information is protected by the Federal Confidentiality of Alcohol and Drug Abuse Patient Records regulations: The Federal rules restrict any use of the information to criminally investigate or prosecute any alcohol or drug abuse patient.[facility] HospitalIn the event this information is protected by the Federal Confidentiality of Alcohol and Drug Abuse Patient Records regulations: The Federal rules restrict any use of the information to criminally investigate or prosecute any alcohol or drug abuse patient.[facility] HospitalIn the event this information is protected by the Federal Confidentiality of Alcohol and Drug Abuse Patient Records regulations: The Federal rules restrict any use of the information to criminally investigate or prosecute any alcohol or drug abuse patient.[facility] HospitalIn the event this information is protected by the Federal Confidentiality of Alcohol and Drug Abuse Patient Records regulations: The Federal rules restrict any use of the information to criminally investigate or prosecute any alcohol or drug abuse patient.[facility] HospitalIn the event this information is protected by the Federal Confidentiality of Alcohol and Drug Abuse Patient Records regulations: The Federal rules restrict any use of the information to criminally investigate or prosecute any alcohol or drug abuse patient.[facility] HospitalIn the event this information is protected by the Federal Confidentiality of Alcohol and Drug Abuse Patient Records regulations: The Federal rules restrict any use of the information to criminally investigate or prosecute any alcohol or drug abuse patient.[facility] HospitalIn the event this information is protected by the Federal Confidentiality of Alcohol and Drug Abuse Patient Records regulations: The Federal rules restrict any use of the information to criminally investigate or prosecute any alcohol or drug abuse patient.[facility] HospitalIn the event this information is protected by the Federal Confidentiality of Alcohol and Drug Abuse Patient Records regulations: The Federal rules restrict any use of the information to criminally investigate or prosecute any alcohol or drug abuse patient.[facility] HospitalIn the event this information is protected by the Federal Confidentiality of Alcohol and Drug Abuse Patient Records regulations: The Federal rules restrict any use of the information to criminally investigate or prosecute any alcohol or drug abuse patient.[facility] HospitalIn the event this information is protected by the Federal Confidentiality of Alcohol and Drug Abuse Patient Records regulations: The Federal rules restrict any use of the information to criminally investigate or prosecute any alcohol or drug abuse patient.[facility] HospitalIn the event this information is protected by the Federal Confidentiality of Alcohol and Drug Abuse Patient Records regulations: The Federal rules restrict any use of the information to criminally investigate or prosecute any alcohol or drug abuse patient.[facility] HospitalIn the event this information is protected by the Federal Confidentiality of Alcohol and Drug Abuse Patient Records regulations: The Federal rules restrict any use of the information to criminally investigate or prosecute any alcohol or drug abuse patient.[facility] HospitalIn the event this information is protected by the Federal Confidentiality of Alcohol and Drug Abuse Patient Records regulations: The Federal rules restrict any use of the information to criminally investigate or prosecute any alcohol or drug abuse patient.[facility] HospitalIn the event this information is protected by the Federal Confidentiality of Alcohol and Drug Abuse Patient Records regulations: The Federal rules restrict any use of the information to criminally investigate or prosecute any alcohol or drug abuse patient.[facility] HospitalIn the event this information is protected by the Federal Confidentiality of Alcohol and Drug Abuse Patient Records regulations: The Federal rules restrict any use of the information to criminally investigate or prosecute any alcohol or drug abuse patient.[facility] HospitalIn the event this information is protected by the Federal Confidentiality of Alcohol and Drug Abuse Patient Records regulations: The Federal rules restrict any use of the information to criminally investigate or prosecute any alcohol or drug abuse patient.[facility] HospitalIn the event this information is protected by the Federal Confidentiality of Alcohol and Drug Abuse Patient Records regulations: The Federal rules restrict any use of the information to criminally investigate or prosecute any alcohol or drug abuse patient.[facility] HospitalIn the event this information is protected by the Federal Confidentiality of Alcohol and Drug Abuse Patient Records regulations: The Federal rules restrict any use of the information to criminally investigate or prosecute any alcohol or drug abuse patient.[facility] HospitalIn the event this information is protected by the Federal Confidentiality of Alcohol and Drug Abuse Patient Records regulations: The Federal rules restrict any use of the information to criminally investigate or prosecute any alcohol or drug abuse patient.[facility] HospitalIn the event this information is protected by the Federal Confidentiality of Alcohol and Drug Abuse Patient Records regulations: The Federal rules restrict any use of the information to criminally investigate or prosecute any alcohol or drug abuse patient.[facility] HospitalIn the event this information is protected by the Federal Confidentiality of Alcohol and Drug Abuse Patient Records regulations: The Federal rules restrict any use of the information to criminally investigate or prosecute any alcohol or drug abuse patient.[facility] HospitalIn the event this information is protected by the Federal Confidentiality of Alcohol and Drug Abuse Patient Records regulations: The Federal rules restrict any use of the information to criminally investigate or prosecute any alcohol or drug abuse patient.[facility] HospitalIn the event this information is protected by the Federal Confidentiality of Alcohol and Drug Abuse Patient Records regulations: The Federal rules restrict any use of the information to criminally investigate or prosecute any alcohol or drug abuse patient.[facility] HospitalIn the event this information is protected by the Federal Confidentiality of Alcohol and Drug Abuse Patient Records regulations: The Federal rules restrict any use of the information to criminally investigate or prosecute any alcohol or drug abuse patient.[facility] HospitalIn the event this information is protected by the Federal Confidentiality of Alcohol and Drug Abuse Patient Records regulations: The Federal rules restrict any use of the information to criminally investigate or prosecute any alcohol or drug abuse patient.[facility] HospitalIn the event this information is protected by the Federal Confidentiality of Alcohol and Drug Abuse Patient Records regulations: The Federal rules restrict any use of the information to criminally investigate or prosecute any alcohol or drug abuse patient.[facility] HospitalIn the event this information is protected by the Federal Confidentiality of Alcohol and Drug Abuse Patient Records regulations: The Federal rules restrict any use of the information to criminally investigate or prosecute any alcohol or drug abuse patient.[facility] HospitalIn the event this information is protected by the Federal Confidentiality of Alcohol and Drug Abuse Patient Records regulations: The Federal rules restrict any use of the information to criminally investigate or prosecute any alcohol or drug abuse patient.[facility] HospitalIn the event this information is protected by the Federal Confidentiality of Alcohol and Drug Abuse Patient Records regulations: The Federal rules restrict any use of the information to criminally investigate or prosecute any alcohol or drug abuse patient.[facility] HospitalIn the event this information is protected by the Federal Confidentiality of Alcohol and Drug Abuse Patient Records regulations: The Federal rules restrict any use of the information to criminally investigate or prosecute any alcohol or drug abuse patient.[facility] HospitalIn the event this information is protected by the Federal Confidentiality of Alcohol and Drug Abuse Patient Records regulations: The Federal rules restrict any use of the information to criminally investigate or prosecute any alcohol or drug abuse patient.[facility] HospitalIn the event this information is protected by the Federal Confidentiality of Alcohol and Drug Abuse Patient Records regulations: The Federal rules restrict any use of the information to criminally investigate or prosecute any alcohol or drug abuse patient.[facility] HospitalIn the event this information is protected by the Federal Confidentiality of Alcohol and Drug Abuse Patient Records regulations: The Federal rules restrict any use of the information to criminally investigate or prosecute any alcohol or drug abuse patient.[facility] HospitalIn the event this information is protected by the Federal Confidentiality of Alcohol and Drug Abuse Patient Records regulations: The Federal rules restrict any use of the information to criminally investigate or prosecute any alcohol or drug abuse patient.[facility] HospitalIn the event this information is protected by the Federal Confidentiality of Alcohol and Drug Abuse Patient Records regulations: The Federal rules restrict any use of the information to criminally investigate or prosecute any alcohol or drug abuse patient.[facility] HospitalIn the event this information is protected by the Federal Confidentiality of Alcohol and Drug Abuse Patient Records regulations: The Federal rules restrict any use of the information to criminally investigate or prosecute any alcohol or drug abuse patient.[facility] HospitalIn the event this information is protected by the Federal Confidentiality of Alcohol and Drug Abuse Patient Records regulations: The Federal rules restrict any use of the information to criminally investigate or prosecute any alcohol or drug abuse patient.[facility] HospitalIn the event this information is protected by the Federal Confidentiality of Alcohol and Drug Abuse Patient Records regulations: The Federal rules restrict any use of the information to criminally investigate or prosecute any alcohol or drug abuse patient.[facility] HospitalIn the event this information is protected by the Federal Confidentiality of Alcohol and Drug Abuse Patient Records regulations: The Federal rules restrict any use of the information to criminally investigate or prosecute any alcohol or drug abuse patient.[facility] HospitalIn the event this information is protected by the Federal Confidentiality of Alcohol and Drug Abuse Patient Records regulations: The Federal rules restrict any use of the information to criminally investigate or prosecute any alcohol or drug abuse patient.[facility] HospitalIn the event this information is protected by the Federal Confidentiality of Alcohol and Drug Abuse Patient Records regulations: The Federal rules restrict any use of the information to criminally investigate or prosecute any alcohol or drug abuse patient.[facility] HospitalIn the event this information is protected by the Federal Confidentiality of Alcohol and Drug Abuse Patient Records regulations: The Federal rules restrict any use of the information to criminally investigate or prosecute any alcohol or drug abuse patient.[facility] HospitalIn the event this information is protected by the Federal Confidentiality of Alcohol and Drug Abuse Patient Records regulations: The Federal rules restrict any use of the information to criminally investigate or prosecute any alcohol or drug abuse patient.[facility] HospitalIn the event this information is protected by the Federal Confidentiality of Alcohol and Drug Abuse Patient Records regulations: The Federal rules restrict any use of the information to criminally investigate or prosecute any alcohol or drug abuse patient.[facility] HospitalIn the event this information is protected by the Federal Confidentiality of Alcohol and Drug Abuse Patient Records regulations: The Federal rules restrict any use of the information to criminally investigate or prosecute any alcohol or drug abuse patient.[facility] HospitalIn the event this information is protected by the Federal Confidentiality of Alcohol and Drug Abuse Patient Records regulations: The Federal rules restrict any use of the information to criminally investigate or prosecute any alcohol or drug abuse patient.[facility] HospitalIn the event this information is protected by the Federal Confidentiality of Alcohol and Drug Abuse Patient Records regulations: The Federal rules restrict any use of the information to criminally investigate or prosecute any alcohol or drug abuse patient.[facility] HospitalIn the event this information is protected by the Federal Confidentiality of Alcohol and Drug Abuse Patient Records regulations: The Federal rules restrict any use of the information to criminally investigate or prosecute any alcohol or drug abuse patient.[facility] HospitalIn the event this information is protected by the Federal Confidentiality of Alcohol and Drug Abuse Patient Records regulations: The Federal rules restrict any use of the information to criminally investigate or prosecute any alcohol or drug abuse patient.[facility] HospitalIn the event this information is protected by the Federal Confidentiality of Alcohol and Drug Abuse Patient Records regulations: The Federal rules restrict any use of the information to criminally investigate or prosecute any alcohol or drug abuse patient.[facility] HospitalIn the event this information is protected by the Federal Confidentiality of Alcohol and Drug Abuse Patient Records regulations: The Federal rules restrict any use of the information to criminally investigate or prosecute any alcohol or drug abuse patient.[facility] HospitalIn the event this information is protected by the Federal Confidentiality of Alcohol and Drug Abuse Patient Records regulations: The Federal rules restrict any use of the information to criminally investigate or prosecute any alcohol or drug abuse patient.[facility] HospitalIn the event this information is protected by the Federal Confidentiality of Alcohol and Drug Abuse Patient Records regulations: The Federal rules restrict any use of the information to criminally investigate or prosecute any alcohol or drug abuse patient.[facility] HospitalIn the event this information is protected by the Federal Confidentiality of Alcohol and Drug Abuse Patient Records regulations: The Federal rules restrict any use of the information to criminally investigate or prosecute any alcohol or drug abuse patient.[facility] HospitalIn the event this information is protected by the Federal Confidentiality of Alcohol and Drug Abuse Patient Records regulations: The Federal rules restrict any use of the information to criminally investigate or prosecute any alcohol or drug abuse patient.[facility] HospitalIn the event this information is protected by the Federal Confidentiality of Alcohol and Drug Abuse Patient Records regulations: The Federal rules restrict any use of the information to criminally investigate or prosecute any alcohol or drug abuse patient.[facility] HospitalIn the event this information is protected by the Federal Confidentiality of Alcohol and Drug Abuse Patient Records regulations: The Federal rules restrict any use of the information to criminally investigate or prosecute any alcohol or drug abuse patient.[facility] HospitalIn the event this information is protected by the Federal Confidentiality of Alcohol and Drug Abuse Patient Records regulations: The Federal rules restrict any use of the information to criminally investigate or prosecute any alcohol or drug abuse patient.[facility] HospitalIn the event this information is protected by the Federal Confidentiality of Alcohol and Drug Abuse Patient Records regulations: The Federal rules restrict any use of the information to criminally investigate or prosecute any alcohol or drug abuse patient.[facility] HospitalIn the event this information is protected by the Federal Confidentiality of Alcohol and Drug Abuse Patient Records regulations: The Federal rules restrict any use of the information to criminally investigate or prosecute any alcohol or drug abuse patient.[facility] HospitalIn the event this information is protected by the Federal Confidentiality of Alcohol and Drug Abuse Patient Records regulations: The Federal rules restrict any use of the information to criminally investigate or prosecute any alcohol or drug abuse patient.[facility] HospitalIn the event this information is protected by the Federal Confidentiality of Alcohol and Drug Abuse Patient Records regulations: The Federal rules restrict any use of the information to criminally investigate or prosecute any alcohol or drug abuse patient.[facility] HospitalIn the event this information is protected by the Federal Confidentiality of Alcohol and Drug Abuse Patient Records regulations: The Federal rules restrict any use of the information to criminally investigate or prosecute any alcohol or drug abuse patient.[facility] HospitalIn the event this information is protected by the Federal Confidentiality of Alcohol and Drug Abuse Patient Records regulations: The Federal rules restrict any use of the information to criminally investigate or prosecute any alcohol or drug abuse patient.[facility] HospitalIn the event this information is protected by the Federal Confidentiality of Alcohol and Drug Abuse Patient Records regulations: The Federal rules restrict any use of the information to criminally investigate or prosecute any alcohol or drug abuse patient.[facility] HospitalIn the event this information is protected by the Federal Confidentiality of Alcohol and Drug Abuse Patient Records regulations: The Federal rules restrict any use of the information to criminally investigate or prosecute any alcohol or drug abuse patient.[facility] HospitalIn the event this information is protected by the Federal Confidentiality of Alcohol and Drug Abuse Patient Records regulations: The Federal rules restrict any use of the information to criminally investigate or prosecute any alcohol or drug abuse patient.[facility] HospitalIn the event this information is protected by the Federal Confidentiality of Alcohol and Drug Abuse Patient Records regulations: The Federal rules restrict any use of the information to criminally investigate or prosecute any alcohol or drug abuse patient.[facility] HospitalIn the event this information is protected by the Federal Confidentiality of Alcohol and Drug Abuse Patient Records regulations: The Federal rules restrict any use of the information to criminally investigate or prosecute any alcohol or drug abuse patient.[facility] HospitalIn the event this information is protected by the Federal Confidentiality of Alcohol and Drug Abuse Patient Records regulations: The Federal rules restrict any use of the information to criminally investigate or prosecute any alcohol or drug abuse patient.[facility] HospitalIn the event this information is protected by the Federal Confidentiality of Alcohol and Drug Abuse Patient Records regulations: The Federal rules restrict any use of the information to criminally investigate or prosecute any alcohol or drug abuse patient.[facility] HospitalIn the event this information is protected by the Federal Confidentiality of Alcohol and Drug Abuse Patient Records regulations: The Federal rules restrict any use of the information to criminally investigate or prosecute any alcohol or drug abuse patient.[facility] HospitalIn the event this information is protected by the Federal Confidentiality of Alcohol and Drug Abuse Patient Records regulations: The Federal rules restrict any use of the information to criminally investigate or prosecute any alcohol or drug abuse patient.[facility] HospitalIn the event this information is protected by the Federal Confidentiality of Alcohol and Drug Abuse Patient Records regulations: The Federal rules restrict any use of the information to criminally investigate or prosecute any alcohol or drug abuse patient.[facility] HospitalIn the event this information is protected by the Federal Confidentiality of Alcohol and Drug Abuse Patient Records regulations: The Federal rules restrict any use of the information to criminally investigate or prosecute any alcohol or drug abuse patient.[facility] HospitalIn the event this information is protected by the Federal Confidentiality of Alcohol and Drug Abuse Patient Records regulations: The Federal rules restrict any use of the information to criminally investigate or prosecute any alcohol or drug abuse patient.[facility] HospitalIn the event this information is protected by the Federal Confidentiality of Alcohol and Drug Abuse Patient Records regulations: The Federal rules restrict any use of the information to criminally investigate or prosecute any alcohol or drug abuse patient.[facility] HospitalIn the event this information is protected by the Federal Confidentiality of Alcohol and Drug Abuse Patient Records regulations: The Federal rules restrict any use of the information to criminally investigate or prosecute any alcohol or drug abuse patient.[facility] HospitalIn the event this information is protected by the Federal Confidentiality of Alcohol and Drug Abuse Patient Records regulations: The Federal rules restrict any use of the information to criminally investigate or prosecute any alcohol or drug abuse patient.[facility] HospitalIn the event this information is protected by the Federal Confidentiality of Alcohol and Drug Abuse Patient Records regulations: The Federal rules restrict any use of the information to criminally investigate or prosecute any alcohol or drug abuse patient.[facility] HospitalIn the event this information is protected by the Federal Confidentiality of Alcohol and Drug Abuse Patient Records regulations: The Federal rules restrict any use of the information to criminally investigate or prosecute any alcohol or drug abuse patient.[facility] HospitalIn the event this information is protected by the Federal Confidentiality of Alcohol and Drug Abuse Patient Records regulations: The Federal rules restrict any use of the information to criminally investigate or prosecute any alcohol or drug abuse patient.[facility] HospitalIn the event this information is protected by the Federal Confidentiality of Alcohol and Drug Abuse Patient Records regulations: The Federal rules restrict any use of the information to criminally investigate or prosecute any alcohol or drug abuse patient.[facility] HospitalIn the event this information is protected by the Federal Confidentiality of Alcohol and Drug Abuse Patient Records regulations: The Federal rules restrict any use of the information to criminally investigate or prosecute any alcohol or drug abuse patient.[facility] Reason for Visit (unrecogniz ed section and content) Reason Comments Radiotherapy On-treatment Visit Reason Comments Prostate Cancer Reason Comments Appointment Reason Comments Received Outside Medical Records Reason Comments Consult Reason Comments Radiology NM Specialty Diagnoses / Procedures Referred By Contac t Referred To Contact MOLECULAR & FUNCTIONAL IMAGING Diagnoses Chronic systolic heart failure (HCC) 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 Procedures NM PET/CT CARDIAC PERF REST/STRESS MYOCRD IMG PET 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 Mitral Valve Transcatheter Dslq-dv-Ajog Repair (M-AZAEL) w/ [place] MitraClip Procedure on: 02/18/24 at 10:30 am Procedures TCAT MITRAL VALVE REPAIR INITIAL PROSTHESIS TRANSCATHETER MITRAL VALVE REPAIR PERCUTANEOUS INCLUDE TRANSSEPTAL PUNCTURE WHEN PERFORMED INITIAL PROSTHESIS IV Fluids/Drips, IV Lock [facility] Main [address] [place] [address] Referral ID Status Reason Start Date Expiration Date Visits Re quested Visits Authorized [id number] 1 1 Reason Comments Amaurosis fugax Reason Comments Patient Update Pre admission Reason Comments TIA Specialty Diagnoses / Procedures Referred By Contac t Referred To Contact Diagnoses TIA Procedures N/A [facility] Main [address]a [address] [place] [address] Referral ID Status Reason Start Date Expiration Date Visits Re quested Visits Authorized [id number] 1 1 Reason Comments Hospital Discharge Specialty Diagnoses / Procedures Referred By Contac t Referred To Contact [facility] [place] Procedures CARDIOVASCULAR MEDICINE OP FOLLOW UP APPT ORDER Efren Brady MD [address] [place] [address] [facility] [place] [place] [address] Referral ID Status Reason Start Date Expiration Date Visits Requested Visits Authorized [id number] Ref Not Required PCP Requested Referral 03/26/2024 12/25/2024 1 1 Reason Comments Medication Assistance Program Reason Comments Follow Up Reason Comments Medication Problem Reason Comments Follow Up Reason Onset Date Comments Refill Request 06/10/2024 Specialty Diagnoses / Procedures Referred By Contac t Referred To Contact Radiation Oncology / RADIATION ONCOLOGY Diagnoses Malignant neoplasm of prostate 1 Month Follow Up SIM/SERGEY/Prostate Procedures SIMULATION GAMALIEL IMRT 39 fractions Yung Andrade MD [address] [place] [address] [place] [address] Yung Andrade MD [address] [place] [address] Referral ID Status Reason Start Date Expiration Date Visits Re quested Visits Authorized [id number] Closed 10/12/2021 09/15/2022 [address] Specialty Diagnoses / Procedures Referred By Jordon rao Referred To Contact CT IMAGING Diagnoses Lung nodules Procedures CT CHEST W IVCON CAT SCAN OF CHEST CONTRAST Victor M Duval MD [address] [place] [address] [place] [address] [place] [address] Referral ID Status Reason Start Date Expiration Date V isits Requested Visits Authorized [id number] Closed Auto-Generate d Referral 09/05/2021 10/05/2022 1 1 Reason Comments Rx Refills Reason Comments M-AZAEL MitraClip Sched Reason Comments Holter Monitor Application 48 Hours Reason Comments Follow Up Phone Call [facility] post dis charge follow-up - contacted - all clear Reason Comments Results Reason Comments Opened In Error Reason Comments Patient Question Reason Comments Advice Only Med Management Reason Comments Holter Monitor Application 12-lead 48-HR Reason Comments Advice Only Care Teams (unrecognized sec tion and content) Gas Derrick Operator Relationship Specialty Start Date End Date Samm Thompson MD PCP - General Family Practice 05/30/12 [facility] [address] [place] [address] Primary Staff Physician Cardiology 12/02/18 Gas Derrick Operator Relationship Specialty Start Date End Date Samm Thompson MD PCP - General Family Practice 05/30/12 [facility] [address] [place] [address] Primary Staff Physician Cardiology 12/02/18 Gas Derrick Operator Relationship Specialty Start Date End Date Samm Thompson MD PCP - General Family Practice 05/30/12 [facility] [address] [place] [address] Primary Staff Physician Cardiology 12/02/18 Gas Derrick Operator Relationship Specialty Start Date End Date Samm Thompson MD PCP - General Family Practice 05/30/12 [facility] Vagesh [address] [facility] [place] [address] Primary Staff Physician Cardiology 12/02/18 Gas Derrick Operator Relationship Specialty Start Date End Date Samm Thompson MD PCP - General Family Practice 05/30/12 [address] [facility] [place] [address] Primary Staff Physician Cardiology 12/02/18 Gas Derrick Operator Relationship Specialty Start Date End Date Samm Thompson MD PCP - General Family Practice 05/30/12 [facility] Vagesh [address] [facility] [place] [address] Primary Staff Physician Cardiology 12/02/18 Gas Derrick Operator Relationship Specialty Start Date End Date Samm Thompson MD PCP - General Family Medicine 05/30/12 [facility] Tom [facility] [address] [facility] [place] [address] Primary Staff Physician Cardiology 12/02/18 Gas Derrick Operator Relationship Specialty Start Date End Date Samm Thompson MD PCP - General Family Medicine 05/30/12 [facility] [address] [facility] [place] [address] Primary Staff Physician Cardiology 12/02/18 Gas Derrick Operator Relationship Specialty Start Date End Date Samm Thompson MD PCP - General Family Medicine 05/30/12 [facility] Tom Vagesh [address] [place] [address] Primary Staff Physician Cardiology 12/02/18 Gas Derrick Operator Relationship Specialty Start Date End Date Samm Thompson MD PCP - General Family Medicine 05/30/12 [facility], Tom Vagesh [address] [place] [address] Primary Staff Physician Cardiology 12/02/18 Gas Derrick Operator Relationship Specialty Start Date End Date Samm Thompson MD PCP - General Family Medicine 05/30/12 [place], Tom Vagesh [address] [place] [address] Primary Staff Physician Cardiology 12/02/18 Gas Derrick Operator Relationship Specialty Start Date End Date Samm Thompson MD PCP - General Family Medicine 05/30/12 Felix[facility]ya, Tom Vagesh [address] [place] [address] Primary Staff Physician Cardiology 12/02/18 Gas Derrick Operator Relationship Specialty Start Date End Date Samm Thompson MD PCP - General Family Medicine 05/30/12 FelixTom gomes Vagesh [address] [place] [address] Primary Staff Physician Cardiology 12/02/18 Gas Derrick Operator Relationship Specialty Start Date End Date Samm Thompson MD PCP - General Family Medicine 05/30/12 [place], Tom Vagesh [address] [place] [place] [address] Primary Staff Physician Cardiology 12/02/18 Gas Derrick Operator Relationship Specialty Start Date End Date Samm Thompson MD PCP - General Family Medicine 05/30/12 [facility] Tom Vagesh [address] [place] [address] Primary Staff Physician Cardiology 12/02/18 Gas Derrick Operator Relationship Specialty Start Date End Date Samm Thompson MD PCP - General Family Medicine 05/30/12 [place], Tom Vagesh [address] [place] [address] Primary Staff Physician Cardiology 12/02/18 Gas Derrick Operator Relationship Specialty Start Date End Date Samm Thompson MD PCP - General Family Medicine 05/30/12 Tom Gonzalez Vagesh [address] [place] [address] Primary Staff Physician Cardiology 12/02/18 Gas Derrick Operator Relationship Specialty Start Date End Date Samm Thompson MD PCP - General Family Medicine 05/30/12 Tom Gonzalez Vagesh [address] [place] [address] Primary Staff Physician Cardiology 12/02/18 Gas Derrick Operator Relationship Specialty Start Date End Date Samm Thompson MD PCP - General Family Medicine 05/30/12 [place], Tom Vagesh [address] [place] [address] Primary Staff Physician Cardiology 12/02/18 Gas Derrick Operator Relationship Specialty Start Date End Date Samm Thompson MD PCP - General Family Medicine 05/30/12 Tom Gonzalez [address] [place] [address] Primary Staff Physician Cardiology 12/02/18 Zahra Pierre MD [address] [place] [address] Primary Staff Physician Cardiology 04/26/23 Gas Derrick Operator Relationship Specialty Start Date End Date Samm Thompson MD PCP - General Family Medicine 05/30/12 Tom Gonzalez [address] [facility] [place] [address] Primary Staff Physician Cardiology 12/02/18 Zahra Pierre MD [address] [place] [address] Primary Staff Physician Cardiology 04/26/23 Gas Derrick Operator Relationship Specialty Start Date End Date Samm Thompson MD PCP - General Family Medicine 05/30/12 Tom Gonzalez [address] [place] [address] Primary Staff Physician Cardiology 12/02/18 Zahra Pierre MD [address] [place] [address] Primary Staff Physician Cardiology 04/26/23 Gas Derrick Operator Relationship Specialty Start Date End Date Samm Thompson MD PCP - General Family Medicine 05/30/12 Tom Gonzalez [address] [place] [address] Primary Staff Physician Cardiology 12/02/18 Zahra Pierre MD [address] [place] [address] Primary Staff Physician Cardiology 04/26/23 Gas Derrick Operator Relationship Specialty Start Date End Date Samm Thompson MD PCP - General Family Medicine 05/30/12 Tom Gonzalez [address] [place] [address] Primary Staff Physician Cardiology 12/02/18 Zahra Pierre MD [address] [place] [address] Primary Staff Physician Cardiology 04/26/23 Virgil Carrillo MD [address] [place] [address] Primary Staff Physician Cardiology 10/29/23 Gas Derrick Operator Relationship Specialty Start Date End Date Samm Thompson MD PCP - General Family Medicine 05/30/12 Tom Gonzalez [address] [place] [address] Primary Staff Physician Cardiology 12/02/18 Zahra Pierre MD [address] [place] [address] Primary Staff Physician Cardiology 04/26/23 Virgil Carrillo MD [address] [place] [address] Primary Staff Physician Cardiology 10/29/23 Gas Derrick Operator Relationship Specialty Start Date End Date Samm Thompson MD PCP - General Family Medicine 05/30/12 [facility] [address] [facility] [place] [place] [address] Primary Staff Physician Cardiology 12/02/18 Zahra Pierre MD [address] [place] [address] Primary Staff Physician Cardiology 04/26/23 Virgil Carrillo MD [address] [place] [address] Primary Staff Physician Cardiology 10/29/23 Gas Derrick Operator Relationship Specialty Start Date End Date Samm Thompson MD PCP - General Family Medicine 05/30/12 [facility] [address] [facility] [place] [place] [address] Primary Staff Physician Cardiology 12/02/18 Zahra Pierre MD [address] [place], [place] [address] Primary Staff Physician Cardiology 04/26/23 Virgil Carrillo MD [address] [place] [address] Primary Staff Physician Cardiology 10/29/23 Gas Derrick Operator Relationship Specialty [place] [address] [place] [address] PCP - General Family Medicine 06/29/19 Gas Derrick Operator Relationship Specialty Start Date End Date Samm Thompson MD PCP - General Family Medicine 05/30/12 Tom Gonzalez [address] [facility] [place] [address] Primary Staff Physician Cardiology 12/02/18 Zahra Pierre MD [address] [place] [address] Primary Staff Physician Cardiology 04/26/23 Virgil Carrillo MD [address] [place] [address] Primary Staff Physician Cardiology 10/29/23 Gas Derrick Operator Relationship Specialty Start Date End Date Samm Thompson MD PCP - General Family Medicine 05/30/12 Tom Gonzalez [address] [facility] [place] [address] Primary Staff Physician Cardiology 12/02/18 Zahra Pierre MD [address] [place] [address] Primary Staff Physician Cardiology 04/26/23 Virgil Carrillo MD [address] [place] [address] Primary Staff Physician Cardiology 10/29/23 Gas Derrick Operator Relationship Specialty Start Date End Date Samm Thompson MD PCP - General Family Medicine 05/30/12 Tom Gonzalez [address] [facility] [place] [address] Primary Staff Physician Cardiology 12/02/18 Zahra Pierre MD [address] [place] [address] Primary Staff Physician Cardiology 04/26/23 Virgil Carrillo MD [address] [place], [place] [address] Primary Staff Physician Cardiology 10/29/23 Efren Brady MD [address] [place] [address] Primary Staff Physician Cardiology 12/26/23 Gas Derrick Operator Relationship Specialty Start Date End Date Samm Thompson MD PCP - General Family Medicine 05/30/12 Tom Gonzalez [address] [place] [address] Primary Staff Physician Cardiology 12/02/18 Zahra Pierre MD [address] [place] [address] Primary Staff Physician Cardiology 04/26/23 Virgil Carrillo MD [address] [place] [address] Primary Staff Physician Cardiology 10/29/23 Efren Brady MD [address] [place] [address] Primary Staff Physician Cardiology 12/26/23 Gas Derrick Operator Relationship Specialty Start Date End Date Samm Thompson MD PCP - General Family Medicine 05/30/12 Tom Gonzalez [address] [place] [address] Primary Staff Physician Cardiology 12/02/18 Zahra Pierre MD [address] [place] [address] Primary Staff Physician Cardiology 04/26/23 Virgil Carrillo MD [address] [place] [address] Primary Staff Physician Cardiology 10/29/23 Efren Brady MD [address] [place], [place] [address] Primary Staff Physician Cardiology 12/26/23 Gas Derrick Operator Relationship Specialty Start Date End Date Samm Thompson MD PCP - General Family Medicine 05/30/12 Tom Gonzalez [address] [facility] [place] [place] [address] Primary Staff Physician Cardiology 12/02/18 Zahra Pierre MD [address] [place] [address] Primary Staff Physician Cardiology 04/26/23 Virgil Carrillo MD [address] [place], [place] [id number] Primary Staff Physician Cardiology 10/29/23 Efren Brady MD [address] [place] [address] Primary Staff Physician Cardiology 12/26/23 Gas Derrick Operator Relationship Specialty Start Date End Date Samm Thompson MD PCP - General Family Medicine 05/30/12 Tom Gonzalez [address] [facility] [place] [address] Primary Staff Physician Cardiology 12/02/18 Zahra Pierre MD [address] [place] [address]266[address] Primary Staff Physician Cardiology 04/26/23 Virgil Carrillo MD [address] [place] [address] Primary Staff Physician Cardiology 10/29/23 Efren Brady MD [address] [place] [address] Primary Staff Physician Cardiology 12/26/23 Paulina Fernandes MD [address] [place] [address] Primary Staff Physician Cardiology 01/10/24 Gas Derrick Operator Relationship Specialty Start Date End Date Samm Thompson MD PCP - General Family Medicine 05/30/12 Tom Gonzalez [address] [facility] [place] [address] Primary Staff Physician Cardiology 12/02/18 Zahra Pierre MD [address] [place], [place] [address] Primary Staff Physician Cardiology 04/26/23 Virgil Carrillo MD [address] [place], [place] [id number] Primary Staff Physician Cardiology 10/29/23 Efren Brady MD [address] [place] 8266295 Primary Staff Physician Cardiology 12/26/23 Paulina Fernandes MD [address] [place], [place] [address] Primary Staff Physician Cardiology 01/10/24 Gas Derrick Operator Relationship Specialty Start Date End Date Samm Thompson MD PCP - General Family Medicine 05/30/12 Tom Gonzalez [address] [place] [address] Primary Staff Physician Cardiology 12/02/18 Zahra Pierre MD [facility] [place] [id number] Primary Staff Physician Cardiology 04/26/23 Virgil Carrillo MD [address] [place], [place] [id number] Primary Staff Physician Cardiology 10/29/23 Efren rBady MD [address] [place], [place] 429[address] Primary Staff Physician Cardiology 12/26/23 Paulina Fernandes MD [address] [place] [address] Primary Staff Physician Cardiology 01/10/24 Gas Derrick Operator Relationship Specialty Start Date End Date Samm Thompson MD PCP - General Family Medicine 05/30/12 Tom Gonzalez [address] [facility] [place] [place] [address] Primary Staff Physician Cardiology 12/02/18 Zahra Pierre MD [address] [place] [address] Primary Staff Physician Cardiology 04/26/23 Virgil Carrillo MD [address] [place] [address] Primary Staff Physician Cardiology 10/29/23 Efren Brady MD [address] [place] [address] Primary Staff Physician Cardiology 12/26/23 Paulina Fernandes MD [address] [place] [address] Primary Staff Physician Cardiology 01/10/24 Gas Derrick Operator Relationship Specialty Start Date End Date Samm Thompson MD PCP - General Family Medicine 05/30/12 Tom Gonzalez [address] [facility] [place] [address] Primary Staff Physician Cardiology 12/02/18 Zhara Pierre MD [address] [place] [address] Primary Staff Physician Cardiology 04/26/23 Virgil Carrillo MD [address] [place], [place] 3686[address] Primary Staff Physician Cardiology 10/29/23 Efren Brady MD [address] [place] [address] Primary Staff Physician Cardiology 12/26/23 Paulina Fernandes MD [address] [place] [id number] Primary Staff Physician Cardiology 01/10/24 Gas Derrick Operator Relationship Specialty Start Date End Date Samm Thompson MD PCP - General Family Medicine 05/30/12 Tom Gonzalez [address] [place] [address] Primary Staff Physician Cardiology 12/02/18 Zahra Pierre MD [facility] [place] [id number] Primary Staff Physician Cardiology 04/26/23 Virgil Carrillo MD [address] [place], [place] [id number] Primary Staff Physician Cardiology 10/29/23 Efren Brady MD [address] [place], [place] [address] Primary Staff Physician Cardiology 12/26/23 Paulina Fernandes MD [address] [place] [address] Primary Staff Physician Cardiology 01/10/24 Gas Derrick Operator Relationship Specialty Start Date End Date Samm Thompson MD PCP - General Family Medicine 05/30/12 Tom Gonzalez [address] [facility] [place] [place] [address] Primary Staff Physician Cardiology 12/02/18 Zahra Pierre MD [address] [place] [address] Primary Staff Physician Cardiology 04/26/23 Virgil Carrillo MD [address] [place] [address] Primary Staff Physician Cardiology 10/29/23 Efren Brady MD [address] [place] [address] Primary Staff Physician Cardiology 12/26/23 Paulina Fernandes MD [address] [place] [address] Primary Staff Physician Cardiology 01/10/24 Gas Derrick Operator Relationship Specialty Start Date End Date Samm Thompson MD PCP - General Family Medicine 05/30/12 Tom Gonzalez [address] [facility] [place] [place] [address] Primary Staff Physician Cardiology 12/02/18 Zahra Pierre MD [address] [place] [address] Primary Staff Physician Cardiology 04/26/23 Virgil Carrillo MD [address] [place], [place] 9[address]1295 Primary Staff Physician Cardiology 10/29/23 Efren Brady MD [address] [place] [address] Primary Staff Physician Cardiology 12/26/23 Paulina Fernandes MD [facility] [place] [address] Primary Staff Physician Cardiology 01/10/24 Gas Derrick Operator Relationship Specialty Start Date End Date Samm Thompson MD PCP - General Family Medicine 05/30/12 Tom Gonzalez [address] [place] [address] Primary Staff Physician Cardiology 12/02/18 Zahra Pierre MD [facility]0 [place] [id number] Primary Staff Physician Cardiology 04/26/23 Virgil Carrillo MD [address] [place], [place] [id number] Primary Staff Physician Cardiology 10/29/23 Efren Brady MD [address] [place], [place] 1228395 Primary Staff Physician Cardiology 12/26/23 Paulina Fernandes MD [address] [place] [address] Primary Staff Physician Cardiology 01/10/24 Gas Derrick Operator Relationship Specialty Start Date End Date Samm Thompson MD PCP - General Family Medicine 05/30/12 Tom Gonzalez [address] [place] [address] Primary Staff Physician Cardiology 12/02/18 Zahra Pierre MD [address] [place] [address] Primary Staff Physician Cardiology 04/26/23 Virgil Carrillo MD [address] [place] [address] Primary Staff Physician Cardiology 10/29/23 Efren Brady MD [address] [place] [address] Primary Staff Physician Cardiology 12/26/23 Paulina Fernaneds MD [address] [place] [address] Primary Staff Physician Cardiology 01/10/24 Gas Derrick Operator Relationship Specialty Start Date End Date Samm Thompson MD PCP - General Family Medicine 05/30/12 Tom Gonzalez [address] [place], [place] [id number] Primary Staff Physician Cardiology 12/02/18 Zahra Pierre MD [address] [place] [address] Primary Staff Physician Cardiology 04/26/23 Virgil Carrillo MD [address] [place], [place] 5838295 Primary Staff Physician Cardiology 10/29/23 Efren Brady MD [address] [place], [place] 0661695 Primary Staff Physician Cardiology 12/26/23 Paulina Fernandes MD [address] [place] [address] Primary Staff Physician Cardiology 01/10/24 Gas Derrick Operator Relationship Specialty Start Date End Date Samm Thompson MD PCP - General Family Medicine 05/30/12 Tom Gonzalez [address] [place] [address] Primary Staff Physician Cardiology 12/02/18 Zahra Pierre MD [facility]0 [place] [address] Primary Staff Physician Cardiology 04/26/23 Virgil Carrillo MD [address] [place] [address] Primary Staff Physician Cardiology 10/29/23 Efren Brady MD [address] [place], [place] 4837195 Primary Staff Physician Cardiology 12/26/23 Paulina Fernandes MD [address] [place] [address] Primary Staff Physician Cardiology 01/10/24 Gas Derrick Operator Relationship Specialty Start Date End Date Samm Thompson MD PCP - General Family Medicine 05/30/12 Tom Gonzalez [address] [place] [address] Primary Staff Physician Cardiology 12/02/18 Zahra Pierre MD [address] [place] [address] Primary Staff Physician Cardiology 04/26/23 Virgil Carrillo MD [address] [place] [address] Primary Staff Physician Cardiology 10/29/23 Efren Brady MD [address] [place] [address] Primary Staff Physician Cardiology 12/26/23 Paulina Fernandes MD [address] [place] [address] Primary Staff Physician Cardiology 01/10/24 Gas Derrick Operator Relationship Specialty Start Date End Date Samm Thompson MD PCP - General Family Medicine 05/30/12 Tom Gonzalez [address] [place], [place] [address] Primary Staff Physician Cardiology 12/02/18 Zahra Pierre MD [address] [place] [address] Primary Staff Physician Cardiology 04/26/23 Virgil Carrillo MD [address] [place] [address] Primary Staff Physician Cardiology 10/29/23 Efren Brady MD [address] [place], [place] 73777[address] Primary Staff Physician Cardiology 12/26/23 Paulina Fernandes MD [facility] [place] [address] Primary Staff Physician Cardiology 01/10/24 Gas Derrick Operator Relationship Specialty Start Date End Date Samm Thompson MD PCP - General Family Medicine 05/30/12 Tom Gonzalez [address] [place], [place] [address] [address] Primary Staff Physician Cardiology 12/02/18 Zahra Pierre MD [facility]0 [place] [id number] Primary Staff Physician Cardiology 04/26/23 Virgil Carrillo MD [address] [place] [address] Primary Staff Physician Cardiology 10/29/23 Efren Brady MD [address] [place], [place] 2056695 Primary Staff Physician Cardiology 12/26/23 Paulina Fernandes MD [address] [place] [address] Primary Staff Physician Cardiology 01/10/24 Gas Derrick Operator Relationship Specialty Start Date End Date Samm Thompson MD PCP - General Family Medicine 05/30/12 Tom Gonzalez [address] [place] [address] Primary Staff Physician Cardiology 12/02/18 Zahra Pierre MD [address] [place] [address] Primary Staff Physician Cardiology 04/26/23 Virgil Carrillo MD [address] [place] [address] Primary Staff Physician Cardiology 10/29/23 Efren Brady MD [address] [place] [address] Primary Staff Physician Cardiology 12/26/23 Paulina Fernandes MD [address] [place] [address] Primary Staff Physician Cardiology 01/10/24 Gas Derrick Operator Relationship Specialty Start Date End Date Samm Thompson MD PCP - General Family Medicine 05/30/12 Tom Gonzalez [address] [place], [place] [address] Primary Staff Physician Cardiology 12/02/18 Zahra Pierre MD [address] [place] [address] Primary Staff Physician Cardiology 04/26/23 Virgil Carrillo MD [address] [place] [address] Primary Staff Physician Cardiology 10/29/23 Efren Brady MD [address] [place] [address] Primary Staff Physician Cardiology 12/26/23 Paulina Fernandes MD [facility] [place] [address] Primary Staff Physician Cardiology 01/10/24 Gas Derrick Operator Relationship Specialty Start Date End Date Samm Thompson MD PCP - General Family Medicine 05/30/12 Tom Gonzalez [address] [place] [address] Primary Staff Physician Cardiology 12/02/18 Zahra Pierre MD [facility] [place] [address] Primary Staff Physician Cardiology 04/26/23 Virgil Carrillo MD [address] [place], [place] 37134[address] Primary Staff Physician Cardiology 10/29/23 Efren Brady MD [address] [place], [place] 8523195 Primary Staff Physician Cardiology 12/26/23 Paulina Fernandes MD [address] [place] [address] Primary Staff Physician Cardiology 01/10/24 Gas Derrick Operator Relationship Specialty Start Date End Date Samm Thompson MD PCP - General Family Medicine 05/30/12 Tom Gonzalez [address] [place] [address] Primary Staff Physician Cardiology 12/02/18 Zahra Pierre MD [address] [place] [address] Primary Staff Physician Cardiology 04/26/23 Virgil Carrillo MD [address] [place] [address] Primary Staff Physician Cardiology 10/29/23 Efren Brady MD [address] [place] [address] Primary Staff Physician Cardiology 12/26/23 Carmela Fernandes MD [address] [place] [address] Primary Staff Physician Cardiology 01/10/24 Gas Derrick Operator Relationship Specialty Start Date End Date Samm Thompson MD PCP - General Family Medicine 05/30/12 Tom Gonzalez [address] [place] [address] Primary Staff Physician Cardiology 12/02/18 Zahra Pierre MD [address] [place] [address] Primary Staff Physician Cardiology 04/26/23 Virgil Carrillo MD [address] [place] [address] Primary Staff Physician Cardiology 10/29/23 Efren Brady MD [address] [place] [address] Primary Staff Physician Cardiology 12/26/23 Carmela Fernandes MD [address] [place] [address] Primary Staff Physician Cardiology 01/10/24 Gas Derrick Operator Relationship Specialty Start Date End Date Samm Thompson MD PCP - General Family Medicine 05/30/12 Tom Gonzalez [facility] [place] [address] Primary Staff Physician Cardiology 12/02/18 Zahra Pierre MD [address] [place] [address] Primary Staff Physician Cardiology 04/26/23 Virgil Carrillo MD [address] [place] [address] Primary Staff Physician Cardiology 10/29/23 Efren Brady MD [address] [place], [place] [address] Primary Staff Physician Cardiology 12/26/23 Carmela Fernandes MD [address] [place] [address] Primary Staff Physician Cardiology 01/10/24 Gas Derrick Operator Relationship Specialty Start Date End Date Samm Thompson MD PCP - General Family Medicine 05/30/12 Tom Gonzalez [address] [place] [address] Primary Staff Physician Cardiology 12/02/18 Zahra Pierre MD [address] [place] [address] Primary Staff Physician Cardiology 04/26/23 Virgil Carrillo MD [address] [place] [id number] Primary Staff Physician Cardiology 10/29/23 Efren Brady MD [address] [place] [address] Primary Staff Physician Cardiology 12/26/23 Carmela Fernandes MD [address] [place] [address] Primary Staff Physician Cardiology 01/10/24 Gas Derrick Operator Relationship Specialty Start Date End Date Samm Thompson MD PCP - General Family Medicine 05/30/12 Tom Gonzalez [address] [place] [address] Primary Staff Physician Cardiology 12/02/18 Gas Derrick Operator Relationship Specialty Start Date End Date Samm Thompson MD PCP - General Family Medicine 05/30/12 Tom Gonzalez 272 [facility] [place], [place] [address] Primary Staff Physician Cardiology 12/02/18 Gas Derrick Operator Relationship Specialty Start Date End Date Samm Thompson MD PCP - General Family Medicine 05/30/12 Tom Gonzalez 272 [facility] [place] [address] Primary Staff Physician Cardiology 12/02/18 Zahra Pierre MD [address] [place] [address] Primary Staff Physician Cardiology 04/26/23 Virgil Carrillo MD [address] [place] [address] Primary Staff Physician Cardiology 10/29/23 Efren Brady MD [address] [place] [address] Primary Staff Physician Cardiology 12/26/23 Carmela Fernandes MD [address] [place] [address] Primary Staff Physician Cardiology 01/10/24 Gas Derrick Operator Relationship Specialty Start Date End Date Samm Thompson MD PCP - General Family Medicine 02/26/24 Gas Derrick Operator Relationship Specialty Start Date End Date Samm Thompson MD PCP - General Family Medicine 02/26/24 Gas Derrick Operator Relationship Specialty Start Date End Date Samm Thompson MD PCP - General Family Medicine 02/26/24 Gas Derrick Operator Relationship Specialty Start Date End Date Samm Thompson MD PCP - General Family Medicine 02/26/24 Gas Derrick Operator Relationship Specialty Start Date End Date Samm Thompson MD PCP - General Family Medicine 05/30/12 Tom Gonzalez [address] [place] [address] Primary Staff Physician Cardiology 12/02/18 Zahra Pierre MD [facility] [place] [address] Primary Staff Physician Cardiology 04/26/23 Virgil Carrillo MD [address] [place] [address] Primary Staff Physician Cardiology 10/29/23 Efren Brady MD [address] [place] [address] Primary Staff Physician Cardiology 12/26/23 Carmela Fernandes MD [address] [place] [address] Primary Staff Physician Cardiology 01/10/24 Gas Derrick Operator Relationship Specialty Start Date End Date Samm Thompson MD PCP - General Family Medicine 05/30/12 Tom Gonzalez [address] [place] [address] Primary Staff Physician Cardiology 12/02/18 Zahra Pierre MD [address] [place] [address] Primary Staff Physician Cardiology 04/26/23 Virgil Carrillo MD [address] [place] [address] Primary Staff Physician Cardiology 10/29/23 Efren Brady MD [address] [place] [address] Primary Staff Physician Cardiology 12/26/23 Carmela Fernandes MD [address] [place] [address] Primary Staff Physician Cardiology 01/10/24 Gas Derrick Operator Relationship Specialty Start Date End Date Samm Thompson MD PCP - General Family Medicine 05/30/12 Tom Gonzalez [address] [place] [address] Primary Staff Physician Cardiology 12/02/18 Zahra Pierre MD [address] [place] [address] Primary Staff Physician Cardiology 04/26/23 Virgil Carrillo MD [address] [place], [place] [address]448[address] Primary Staff Physician Cardiology 10/29/23 Efren Brady MD [address] [place] [address] Primary Staff Physician Cardiology 12/26/23 Carmela Fernandes MD [address] [place] [address] Primary Staff Physician Cardiology 01/10/24 Gas Derrick Operator Relationship Specialty Start Date End Date Samm Thompson MD PCP - General Family Medicine 05/30/12 Tom Gonzalez [address] [facility] [place] [address] Primary Staff Physician Cardiology 12/02/18 Zahra Pierre MD [address] [place] [address] Primary Staff Physician Cardiology 04/26/23 Virgil Carrillo MD [address] [place] [address] Primary Staff Physician Cardiology 10/29/23 Efren Brady MD [address] [place] [address] Primary Staff Physician Cardiology 12/26/23 Carmela Fernandes MD [address] [place] [address] Primary Staff Physician Cardiology 01/10/24 Gas Derrick Operator Relationship Specialty Start Date End Date Samm Thompson MD PCP - General Family Medicine 05/30/12 Tom Gonzalez [address] [place] [address] Primary Staff Physician Cardiology 12/02/18 Zahra Pierre MD [address] [place], [place] 49916[address] Primary Staff Physician Cardiology 04/26/23 Virgil Carrillo MD [address] [place], [place] 1666195 Primary Staff Physician Cardiology 10/29/23 Efren Brady MD [address] [place] [address] Primary Staff Physician Cardiology 12/26/23 Carmela Fernandes MD [facility] [place] [address] Primary Staff Physician Cardiology 01/10/24 Gas Derrick Operator Relationship Specialty Start Date End Date Samm Thompson MD PCP - General Family Medicine 05/30/12 Tom Gonzalez [facility] [place] [address] Primary Staff Physician Cardiology 12/02/18 Zahra Pierre MD [address] [place] [address] Primary Staff Physician Cardiology 04/26/23 Virgil Carrillo MD [address] [place] [address] Primary Staff Physician Cardiology 10/29/23 Efren Brady MD [address] [place] [address] Primary Staff Physician Cardiology 12/26/23 Carmela Fernandes MD [address] [place] [address] Primary Staff Physician Cardiology 01/10/24 Gas Derrick Operator Relationship Specialty Start Date End Date Samm Thompson MD PCP - General Family Medicine 05/30/12 Tom Gonzalez 272 [facility] [place] [address] Primary Staff Physician Cardiology 12/02/18 Zahra Pierre MD [address] [place] [address] Primary Staff Physician Cardiology 04/26/23 Virgil Carrillo MD [address] [place] [address] Primary Staff Physician Cardiology 10/29/23 Efren Brady MD [address] [place] [address] Primary Staff Physician Cardiology 12/26/23 Carmela Fernandes MD [address] [place] [address] Primary Staff Physician Cardiology 01/10/24 Gas Derrick Operator Relationship Specialty Start Date End Date Samm Thompson MD PCP - General Family Medicine 05/30/12 Tom Gonzalez 272 [facility] [place] [place] [address] Primary Staff Physician Cardiology 12/02/18 Zhara Pierre MD [address] [place] [address] Primary Staff Physician Cardiology 04/26/23 Virgil Carrillo MD [address] [place], [place] 7787595 Primary Staff Physician Cardiology 10/29/23 Efren Brady MD [address] [place] [address] Primary Staff Physician Cardiology 12/26/23 Carmela Fernandes MD [address] [place] [address] Primary Staff Physician Cardiology 01/10/24 Gas Derrick Operator Relationship Specialty Start Date End Date Samm Thompson MD PCP - General Family Medicine 05/30/12 Tom Gonzalez [address] [place] [address] Primary Staff Physician Cardiology 12/02/18 Zahra Pierre MD [facility] [place] [address] Primary Staff Physician Cardiology 04/26/23 Virgil Carrillo MD [address] [place], [place] 5205995 Primary Staff Physician Cardiology 10/29/23 Efren Brady MD [address] [place], [place] 7852595 Primary Staff Physician Cardiology 12/26/23 Carmela Fernandes MD [address] [place] [address] Primary Staff Physician Cardiology 01/10/24 Gas Derrick Operator Relationship Specialty Start Date End Date Samm Thompson MD PCP - General Family Medicine 05/30/12 Tom Gonzalez [address] [place] [address] Primary Staff Physician Cardiology 12/02/18 Zahra Pierre MD [address] [place] [address] Primary Staff Physician Cardiology 04/26/23 Virgil Carrillo MD [address] [place] [address] Primary Staff Physician Cardiology 10/29/23 Efren Brady MD [address] [place] [address] Primary Staff Physician Cardiology 12/26/23 Carmela Fernandes MD [address] [place] [address] Primary Staff Physician Cardiology 01/10/24 Gas Derrick Operator Relationship Specialty Start Date End Date aSmm Thompson MD PCP - General Family Medicine 05/30/12 Tom Gonzalez [address] [place] [address] Primary Staff Physician Cardiology 12/02/18 Zahra Pierre MD [address] [place] [address] Primary Staff Physician Cardiology 04/26/23 Virgil Carrillo MD [address] [place] [address] Primary Staff Physician Cardiology 10/29/23 Efren Brady MD [address] [place] [address] Primary Staff Physician Cardiology 12/26/23 Carmela Fernandes MD [address] [place] [address] Primary Staff Physician Cardiology 01/10/24 Gas Derrick Operator Relationship Specialty Start Date End Date Samm Thompson MD PCP - General Family Medicine 05/30/12 Tom Gonzalez [facility] [place] [address] Primary Staff Physician Cardiology 12/02/18 Zahra Pierre MD [address] [place] [address] Primary Staff Physician Cardiology 04/26/23 Virgil Carrillo MD [address] [place] [address] Primary Staff Physician Cardiology 10/29/23 Efren Brady MD [address] [place] [address] Primary Staff Physician Cardiology 12/26/23 Carmela Fernandes MD [address] [place] [address] Primary Staff Physician Cardiology 01/10/24 Gas Derrick Operator Relationship Specialty Start Date End Date Samm Thompson MD PCP - General Family Medicine 05/30/12 Tom Gonzalez [address] [place] [address] Primary Staff Physician Cardiology 12/02/18 Zahra Pierre MD [facility] [place] [address] Primary Staff Physician Cardiology 04/26/23 Virgil Carrillo MD [address] [place] [address] Primary Staff Physician Cardiology 10/29/23 Efren Brady MD [address] [place] [address] Primary Staff Physician Cardiology 12/26/23 [place] [address] [place] [address] Primary Staff Physician Cardiology 01/10/24 FOR [...] BE BASED ON THE PRIMARY CLINICAL RECORDS. [facility]. provides no warranty or guarantee of the accuracy or completeness of information in this document.
--- NOTE | 2024-09-12 18:16 | ECG_ITS ---
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
--- NOTE | 2024-09-12 18:16 | XR_ITS ---
The [address] [address] Patient Name: LANDEN ROTH MRN: [id number] date: 1940 Sex: M Assigned Patient Location: ER Current Patient Location: ED.MAIN Accession/Order Number: [id number] Exam Date: 09/12/2024 18:30 Report Date: 09/12/2024 20:06 At the request of: BIRGIT SORIANO Procedure: XR chest 1V EXAMINATION: XR chest 1V HISTORY: sob COMPARISON: XR chest 09/26/2023, 02/12/2024 FINDINGS: LUNGS: Mild haziness within medial right lung base. Opacities obscure the left lung base. VASCULATURE: No increased pulmonary vasculature. PLEURA: Suspect left pleural effusion. CARDIAC: Cardiomegaly; increased compared to prior study. MEDIASTINUM: No visible mass or adenopathy. BONES: No fracture or visible bone lesion. OTHER: Cardiac pacer. XR/XR chest 1V IMPRESSION: 1. Increased cardiomegaly, mild right/moderate left basilar infiltrates, and left pleural effusion. Possible congestive heart failure. Electronically authenticated by: AYANA FERNANDEZ Date: 09/12/2024 20:06
--- NOTE | 2024-09-12 18:19 | ED.GENADUL1 ---
HPI HPI - General Adult General Chief complaint: Extremity Problem, Nontraumatic Stated complaint: RETAINING FLUID Time Seen by Provider: 09/12/24 17:40 Source: patient Mode of arrival: Wheelchair History of Present Illness HPI narrative: Patient is a 84-year-old male who is presenting to the ER today with chief complaint of 1 to 2-week swelling of fluid to his lower extremities and swelling to his lower abdomen. Patient's daughter is at bedside and another daughter is on the cell phone during the entire HPI and physical exam. 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 Patient has a local PCP, Dr. Serrano. Patient is not complaining of any type of lightheaded dizziness. Patient is having more shortness of breath with [place] and short distances in the last couple days and he normally does. Patient has no fever or chills. No chest pain or tightness. Patient does have a lot of scratch riley to his lower legs, and his upper back. Patient was on amiodarone, the family believes that the amiodarone caused a rash that patient was itching at. Amiodarone has been stopped. Patient does have a lot of scratch and abrasion riley to his upper back, slightly to his upper chest and his lower extremities. No secondary signs of infection. Patient has 3-4+ pitting edema to bilateral lower extremities, swelling is equal. Patient does have multiple superficial openings to the skin where he is leaking clear fluid to his lower extremities that started today as well. Patient has no secondary signs of venous stasis or cellulitis to his lower extremities, bilateral lower extremities are taut. No other acute complaints. Patient does look pale. Patient's daughter states that he normally looks discolored and is normally pale, may be slightly more pale than usual. All systems are negative except as noted/marked. All systems reviewed and otherwise negative. Nurses note and vital signs reviewed and patient is not hypoxic. General: The patient appears well and in no apparent distress. Patient is resting comfortably on cart. Patient is not toxic, lethargic, or listless Skin: Warm, dry, pallor noted. There is no rash noted. No petechiae, purpura. Head: Normocephalic, atraumatic Eye: bilateral pale conjunctiva, no drainage, EOMI. PERRL Ears, Nose, Mouth, and Throat: oral mucosa is moist. Nares patent. Mouth without vesicles. Cardiovascular: Regular Rate and Rhythm, no murmur, gallop, rub Respiratory: Patient is in no distress, no accessory muscle use, lungs are clear to auscultation, no wheezing, mild rales/crackles bilateral, left greater than right, no rhonchi Back: non-tender, no CVA tenderness bilaterally to percussion. No CT LS midline pain GI: no tenderness to palpation, no masses appreciated. No rebound, guarding, or rigidity noted. No distention Musculoskeletal: Patient has full range of motion of all of the extremities, no motor, sensory, or focal neurological deficits. No significant pain to the posterior aspects of bilateral lower extremities to the posterior calves, popliteal fossa, or thighs. Patient does have multiple small openings to his lower extremities, especially distal to the knee where there is clear fluid that is leaking, no secondary signs of stasis, cellulitis, or any other acute findings of infection. 3-4+ pitting edema to bilateral lower extremities, no pitting edema to the abdomen Neurological: A&O x4, normal speech Psychiatric: Cooperative Related Data Home Medications ?Medication ?Instructions ?Recorded ?Confirmed atorvastatin 40 mg tablet 40 mg PO DAILY 09/26/23 09/26/23 ferrous sulfate 325 mg (65 mg 325 mg PO DAILY 09/26/23 09/26/23 iron) tablet (Feosol) lisinopril 5 mg tablet 5 mg PO DAILY 09/26/23 09/26/23 metoprolol succinate 25 mg 25 mg PO DAILY 09/26/23 09/26/23 tablet,extended release 24 hr thyroid (pork) 15 mg tablet (ADVICE LINE RN 15 mg PO DAILY 09/26/23 09/27/23 Thyroid) dapagliflozin propanediol 5 mg 5 mg PO QAM 09/27/23 09/27/23 tablet (Farxiga) ezetimibe 10 mg tablet 10 mg PO DAILY 09/27/23 09/27/23 thyroid (pork) 60 mg tablet (ADVICE LINE RN 60 mg PO DAILY 09/27/23 09/27/23 Thyroid) Allergies Allergy/AdvReac Type Severity Reaction Status Date / Time latex Allergy Severe Verified 09/26/23 18:05 Opioid HPI Opioid Management Most Recent Opioid Data: No Data to Display [facility] Medical History (Updated 09/12/24 @ 19:35 by Luis Fernando Issa MD) Non-sustained ventricular tachycardia ?I47.29 - Other ventricular tachycardia (ICD-10) Elevated troponin ?R79.89 - Other specified abnormal findings of blood chemistry (ICD-10) CHF (congestive heart failure) ?I50.9 - Heart failure, unspecified (ICD-10) Social History Highest level of school completed/degree received: some college, no degree Little interest or pleasure in doing things: not at all Feeling down, depressed, or hopeless: not at all Exam Constitutional Vital Signs, click to edit/add: Last Vital Signs Temp 98.0 F 09/12/24 17:14 Pulse 73 09/12/24 17:14 Resp 18 09/12/24 17:14 BP 105/62 09/12/24 18:42 Pulse Ox 98 09/12/24 19:01 O2 Del Method Room Air 09/12/24 19:01 Course Vital Signs Vital signs: Vital Signs Temperature 98.0 F 09/12/24 17:14 Pulse Rate 73 09/12/24 17:14 Respiratory Rate 18 09/12/24 17:14 Blood Pressure 99/53 09/12/24 17:14 Pulse Oximetry 97 09/12/24 17:14 Oxygen Delivery Method Room Air 09/12/24 17:14 Temperature 98.0 F 09/12/24 17:14 Pulse Rate 73 09/12/24 17:14 Respiratory Rate 18 09/12/24 17:14 Blood Pressure 105/62 09/12/24 18:42 Pulse Oximetry 98 09/12/24 19:01 Oxygen Delivery Method Room Air 09/12/24 19:01 Medical Decision Making MDM Narrative Medical decision making narrative: [address] have [address] Serrano, he is agreeing to admit the patient to the hospital, we will speak to the hospitalist at nighttime when lab work and testing returns. He agrees with giving patient IV Lasix 80 mg initially and we can continue patient's inpatient regimen that he normally does at the [facility]. [address] Dr. Issa will follow-up on patient's lab work, and perform final disposition to the hospitalist. Dr. Serrano is aware of the patient and is agreeing to admission. Lab Data Labs: Lab Results 09/12/24 Range/Units 18:20 WBC 6.1 (4.0-11.0) 10^3/uL RBC 3.46 L (4.70-6.10) 10^6/uL Hgb 9.4 L (14.0-18.0) g/dL Hct 31.6 L (42.0-54.0) % MCV 91.3 (80.0-94.0) fL MCH 27.2 (25.9-34.0) pg MCHC 29.7 L (29.9-35.2) g/dL RDW 18.6 H (11.0-15.0) % Plt Count 236 (150-450) 10^3/uL MPV 9.9 (9.5-13.5) fL Neut % (Auto) 73.3 (43.0-75.0) % Lymph % (Auto) 12.9 L (20.5-60.0) % Boyle % (Auto) 10.9 (1.7-12.0) % Eos % (Auto) 2.1 (0.9-7.0) % Baso % (Auto) 0.3 (0.2-2.0) % Neut # (Auto) 4.4 (1.4-6.5) 10^3/uL Lymph # (Auto) 0.8 L (1.2-3.8) 10^3/uL Boyle # (Auto) 0.7 (0.3-0.8) 10^3/uL Eos # (Auto) 0.1 (0.0-0.7) 10^3/uL Baso # (Auto) 0.0 (0.0-0.1) 10^3/uL Abs Immat Gran (auto) 0.03 (0.00-0.03) 10^3/uL Imm/Tot Granulo (auto) 0.5 (0.0-0.5) % PT 14.6 H (9.0-11.6) sec INR 1.43 APTT 29.3 (22.3-36.2) sec Sodium 137 (136-145) mmol/L Potassium 4.5 (3.5-5.1) mmol/L Chloride 101 (98-107) mmol/L Carbon Dioxide 33.7 H (21.0-32.0) mmol/L Anion Gap 6.8 BUN 49.0 H (7.0-18.0) mg/dL Creatinine 2.51 H (0.70-1.30) mg/dL Est GFR ( Amer) 30 L (>=60 mL/min/1.73m^2) Est GFR (Non-Af Amer) 25 L (>=60 mL/min/1.73m^2) BUN/Creatinine Ratio 19.5 Glucose 103 (74-106) mg/dL Calcium 8.6 (8.5-10.1) mg/dL NT-Pro-B Natriuret Pep 18454.0 H* (<=1800.0) pg/mL ECG Data Attestation: I personally reviewed and interpreted this ECG as follows: (EKG interpretation. Normal sinus rhythm at 71 beats a minute. Irregular rhythm versus arrhythmia at 71 beats a minute. Normal axis deviation. No acute ST elevation, MI interval of 282, first-degree AV block. EKG reading incomplete left bundle branch block,) Discharge Plan Discharge Chief Complaint: Extremity Problem, Nontraumatic Clinical Impression: Edema of both lower legs due to peripheral venous insufficiency, Abrasion, multiple sites, Dyspnea, Anemia Patient Disposition: Admitted As Inpatient Time of Disposition Decision: 19:35 Condition: Fair
[2024-09-12 18:37] LABS: Basophils Percent Auto 0.3 % (0.2-2.0); Eosinophils Absolute Auto 0.1 10^3/uL (0.0-0.7); Eosinophils Percent Auto 2.1 % (0.9-7.0); Hematocrit 31.6 % (42.0-54.0); Hemoglobin 9.4 g/dL (14.0-18.0); Immature Granulocytes Abs Auto 0.03 10^3/uL (0.00-0.03); Immature Granulocytes Pct Auto 0.5 % (0.0-0.5); Lymphocytes Absolute Auto 0.8 10^3/uL (1.2-3.8); Lymphocytes Percent Auto 12.9 % (20.5-60.0); Mean Corpuscular HGB Conc 29.7 g/dL (29.9-35.2); Mean Corpuscular Hemoglobin 27.2 pg (25.9-34.0); Mean Corpuscular Volume 91.3 fL (80.0-94.0); Mean Platelet Volume 9.9 fL (9.5-13.5); Monocytes Absolute Auto 0.7 10^3/uL (0.3-0.8); Monocytes Percent Auto 10.9 % (1.7-12.0); Neutrophils Absolute Auto 4.4 10^3/uL (1.4-6.5); Neutrophils Percent Auto 73.3 % (43.0-75.0); Platelet Count 236 10^3/uL (150-450); Red Blood Count 3.46 10^6/uL (4.70-6.10); Red Cell Distribution Width 18.6 % (11.0-15.0); White Blood Count 6.1 10^3/uL (4.0-11.0)
[2024-09-12] MEDS: FUROSEMIDE 40 MG/4 ML VIAL 80 MG IVP (18:42)
[2024-09-12 18:57] LABS: INR 1.43; Partial Thromboplastin Time 29.3 sec (22.3-36.2); Prothrombin Time 14.6 sec (9.0-11.6)
[2024-09-12 19:03] LABS: Anion Gap 6.8; BUN Creatinine Ratio 19.5; Calcium 8.6 mg/dL (8.5-10.1); Carbon Dioxide 33.7 mmol/L (21.0-32.0); Chloride 101 mmol/L (98-107); Estimated GFR (African America 30 (>=60 mL/min/1.73m^2); Estimated GFR (Non-African Ame 25 (>=60 mL/min/1.73m^2); Glucose 103 mg/dL (74-106); Potassium 4.5 mmol/L (3.5-5.1); Sodium 137 mmol/L (136-145)
--- NOTE | 2024-09-12 19:50 | ED_ITS ---
HPI HPI - General Adult General Chief complaint: Extremity Problem, Nontraumatic Stated complaint: RETAINING FLUID Time Seen by Provider: 09/12/24 17:40 Source: patient Mode of arrival: Wheelchair History of Present Illness HPI narrative: 84-year-old male was initially seen by Dr. Winter and signed out to me at change of shift. Please see his full history and physical exam. Related Data Home Medications ?Medication ?Instructions ?Recorded ?Confirmed atorvastatin 40 mg tablet 40 mg PO DAILY 09/26/23 09/26/23 ferrous sulfate 325 mg (65 mg 325 mg PO DAILY 09/26/23 09/26/23 iron) tablet (Feosol) lisinopril 5 mg tablet 5 mg PO DAILY 09/26/23 09/26/23 metoprolol succinate 25 mg 25 mg PO DAILY 09/26/23 09/26/23 tablet,extended release 24 hr thyroid (pork) 15 mg tablet (RELIGIOUS EDUCATOR 15 mg PO DAILY 09/26/23 09/27/23 Thyroid) dapagliflozin propanediol 5 mg 5 mg PO QAM 09/27/23 09/27/23 tablet (Farxiga) ezetimibe 10 mg tablet 10 mg PO DAILY 09/27/23 09/27/23 thyroid (pork) 60 mg tablet (RELIGIOUS EDUCATOR 60 mg PO DAILY 09/27/23 09/27/23 Thyroid) Allergies Allergy/AdvReac Type Severity Reaction Status Date / Time latex Allergy Severe Verified 09/26/23 18:05 Opioid HPI Opioid Management Most Recent Opioid Data: No Data to Display [facility] Medical History (Updated 09/12/24 @ 19:35 by Luis Fernando Issa MD) Non-sustained ventricular tachycardia ?I47.29 - Other ventricular tachycardia (ICD-10) Elevated troponin ?R79.89 - Other specified abnormal findings of blood chemistry (ICD-10) CHF (congestive heart failure) ?I50.9 - Heart failure, unspecified (ICD-10) Social History Highest level of school completed/degree received: some college, no degree Little interest or pleasure in doing things: not at all Feeling down, depressed, or hopeless: not at all Exam Constitutional Vital Signs, click to edit/add: Last Vital Signs Temp 98.0 F 09/12/24 17:14 Pulse 73 09/12/24 17:14 Resp 18 09/12/24 17:14 BP 105/62 09/12/24 18:42 Pulse Ox 98 09/12/24 19:01 O2 Del Method Room Air 09/12/24 19:01 Course Vital Signs Vital signs: Vital Signs Temperature 98.0 F 09/12/24 17:14 Pulse Rate 73 09/12/24 17:14 Respiratory Rate 18 09/12/24 17:14 Blood Pressure 99/53 09/12/24 17:14 Pulse Oximetry 97 09/12/24 17:14 Oxygen Delivery Method Room Air 09/12/24 17:14 Temperature 98.0 F 09/12/24 17:14 Pulse Rate 73 09/12/24 17:14 Respiratory Rate 18 09/12/24 17:14 Blood Pressure 105/62 09/12/24 18:42 Pulse Oximetry 98 09/12/24 19:01 Oxygen Delivery Method Room Air 09/12/24 19:01 Medical Decision Making MDM Narrative Medical decision making narrative: BUN and creatinine are just above his baseline and chest x-ray does not show any heart failure but does appear to show an enlarged heart. He is already been given IV Lasix and is being admitted. Hemoglobin is down about 3 and half grams from about 6 weeks ago and stool studies will need to be ordered. He also has a rash on his upper back which was felt to be due to amiodarone and the amiodarone apparently has been disconnected. Treatment diagnosis and disposition were discussed with the patient and his family. Differential Diagnosis Differential Diagnosis: CHF, pulmonary edema, peripheral edema Lab Data Lab results reviewed: Yes I reviewed the patient's lab results Labs: Lab Results 09/12/24 Range/Units 18:20 WBC 6.1 (4.0-11.0) 10^3/uL RBC 3.46 L (4.70-6.10) 10^6/uL Hgb 9.4 L (14.0-18.0) g/dL Hct 31.6 L (42.0-54.0) % MCV 91.3 (80.0-94.0) fL MCH 27.2 (25.9-34.0) pg MCHC 29.7 L (29.9-35.2) g/dL RDW 18.6 H (11.0-15.0) % Plt Count 236 (150-450) 10^3/uL MPV 9.9 (9.5-13.5) fL Neut % (Auto) 73.3 (43.0-75.0) % Lymph % (Auto) 12.9 L (20.5-60.0) % Bland % (Auto) 10.9 (1.7-12.0) % Eos % (Auto) 2.1 (0.9-7.0) % Baso % (Auto) 0.3 (0.2-2.0) % Neut # (Auto) 4.4 (1.4-6.5) 10^3/uL Lymph # (Auto) 0.8 L (1.2-3.8) 10^3/uL Bland # (Auto) 0.7 (0.3-0.8) 10^3/uL Eos # (Auto) 0.1 (0.0-0.7) 10^3/uL Baso # (Auto) 0.0 (0.0-0.1) 10^3/uL Abs Immat Gran (auto) 0.03 (0.00-0.03) 10^3/uL Imm/Tot Granulo (auto) 0.5 (0.0-0.5) % PT 14.6 H (9.0-11.6) sec INR 1.43 APTT 29.3 (22.3-36.2) sec Sodium 137 (136-145) mmol/L Potassium 4.5 (3.5-5.1) mmol/L Chloride 101 (98-107) mmol/L Carbon Dioxide 33.7 H (21.0-32.0) mmol/L Anion Gap 6.8 BUN 49.0 H (7.0-18.0) mg/dL Creatinine 2.51 H (0.70-1.30) mg/dL Est GFR ( Amer) 30 L (>=60 mL/min/1.73m^2) Est GFR (Non-Af Amer) 25 L (>=60 mL/min/1.73m^2) BUN/Creatinine Ratio 19.5 Glucose 103 (74-106) mg/dL Calcium 8.6 (8.5-10.1) mg/dL NT-Pro-B Natriuret Pep 32665.0 H* (<=1800.0) pg/mL Blood Type O Positive Antibody Screen Negative Imaging Data Chest x-ray: My impression: Cardiomegaly Discharge Plan Discharge Chief Complaint: Extremity Problem, Nontraumatic Clinical Impression: Edema of both lower legs due to peripheral venous insufficiency, Abrasion, multiple sites, Dyspnea, Anemia Patient Disposition: Admitted As Inpatient Time of Disposition Decision: 19:35 Condition: Fair
[2024-09-12] MEDS: DIPHENHYDRAMINE HCL 25 MG CAPSULE PO (20:18)
--- OUTSIDE RECORDS SUMMARY | 2024-09-12 20:33 | XMS_ITS | CCD ---
Author Organization [facility] Care Team Providers Care Retail Analytics Manager Name Role Phone Samm Thompson MD Primary Care Provider [phone] Tom Gonzalez Unavailable SHARON HOOKS Referring Unavailable MARLENE KRISHNA Attending Unavailable NORMA ARORA Admitting Unavailable SAMM THOMPSON Primary Care Unavailable Samm Thompson MD Primary Care Provider [phone] Tom Gonzalez Unavailable Samm Thompson MD Primary Care Provider [phone] SAMM AYERS Primary Care Unavailable MALAIKA [...] Zahra Pierre MD Unavailable Tom Gonzalez Unavailable [phone] Zahra Pierre MD Unavailable Virgil Carrillo MD Unavailable Samm Thompson MD Primary Care Provider [phone] Efren Brady MD Unavailable RAMA MCKEON Admitting [...] Unavailable Samm Thompson MD Primary Care Provider [phone] Paulina Fernandes MD Unavailable ZAHRA LEON Referring Unavailable HOY, SAMM M Primary Care Unavailable CHERYL LEES Attending Unavailable HOY, SAMM M Primary Care Unavailable ABDULAZIZ BENITEZ Consulting Unavailable CHERYL LEES Admitting Unavailable Carmela Fernandes MD Unavailable Samm Thompson MD Primary Care Provider [phone] HOY, SAMM M Referring Unavailable HOY, SAMM [...] Referring Unavailable DARCIE, ALEX A Attending Unavailable KELLI, ISREAL Admitting Unavailable [...] Unavailable HOY, SAMM M Referring Unavailable HOY, SMAM M Primary Care Unavailable JESUSITA AMIN Admitting [...] (2 sources) Adhesive Tape Substance Allergy 06-16-2012 [facility] Work Phone: Latex (2 sources) Latex Substance Allergy 03-13-2019 [facility] (20 sources) Adhesive Tape; Translations: [ADHESIVE TAPE (ROSINS)] Allergy to substance 06-16-2012 [facility] Work Phone: (20 sources) Latex; Translations: [LATEX] Drug Allergy 03-13-2019 [facility] (3 sources) Latex Drug allergy (disorder) 11-04-2013 [facility] Medications Current Medications Medication [...] (flush ) 10 mL (BD POSIFLUSH) thyroid (retirement) 60 mg oral tablet (20 sources) Start: 05-25-2024 take 1 tablet by mouth once daily [address] LIGHT THYROID 60 mg tablet Take 1 tablet by mouth once daily. Give 1 tablet by mouth every 24 hours for give with 15mg =75mg total 05/25/2024 Active Start: 05-16-2024 End: 07-21-2024 take 1 tablet by mouth once daily, then take 1 tablet by mouth every twenty-four hours thyroid ([address] LIGHT THYROID) 15 mg tablet Take 1 tablet by mouth once daily. Give 1 tablet by mouth every 24 hours for give with 60mg=75mg total 05/25/2024 Active Start: 03-26-2023 take 1 tablet by mouth once da marin [address] LIGHT THYROID 15 mg tablet Take 15 mg by mouth once daily. 03/26/2023 Suspended take 1.25 tablets by mouth in the morning thyroid, pork, ([address] LIGHT THYROID) 60 mg tablet Take 1.25 tablets [...] Comment on above: [facility] tropicamide 10 mg/ml ophthalmic solution (2 sources) Anticholinergic Start: 03-02-20 End: 03-03-20 tropicamide 1 % 1 Drop (MYDRIACYL) nbsuouf-llen-oyxkb-o reg-capryl 100 mg-150 mg- 50 mg-150 mg capsule (6 sources) take 1 capsule by mouth once daily dpcbalj-yqqm-zlgsy- oreg-capryl 100 mg-150 mg- 50 mg-150 mg capsule Take 1 capsule by mouth daily. Active take 1 capsule by mo [facility] once daily rfsnaoq-hyuy-asteh-oreg-capryl 100 mg-15 0 mg- 50 mg-150 mg capsule Take 1 capsule by mouth daily. 0 Active ubidecarenone 100 mg oral ca psule (20 sources) coenzyme Q10 (CO Q-10) 100 mg cap capsule Take 100 mg by mouth once daily. Active coenzyme Q10 (CO Q-10) 100 mg cap capsule Take 100 mg by mouth two times a day. 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) use of anticoagulants; Translations: [LONG-TERM CURRNT USE ANTICOAGULANTS] Onset: 2 Episodic Other [...] Anion gap [Moles/Vol] 12 mmol/L Normal 8-15 [facility] Comment on above: Order Comment: Rozi may Type: BLOOD SPECIMENOrdering Facility: [facility] Address: [address] [place] [address] Performed By: #### 2 4321-2 ####[facility] LABCLIA [id number] [place] [address] Calcium [Mass/Vol] 8.7 mg/dL Normal 8.5-10.2 [facility] Comment on above: Order Comment: Speci men Type: BLOOD SPECIMENOrdering Facility: [facility] Address: [address] [place] [address] Performed By: #### 2 4321-2 ####[facility] LABCLIA [id number] [place] [address] Chloride [Moles/Vol] 99 mmol/L Normal 98-107 [facility] Comment on above: Order Comment: Speci men Type: BLOOD SPECIMENOrdering Facility: [facility] Address: [address] [place], [place] [address] Performed By: #### 2 4321-2 ####[facility] LABCLIA [id number] [place] [address] CO2 [Moles/Vol] 26 mmol/L Normal 22-30 [facility] Comment on above: Order Comment: Speci men Type: BLOOD SPECIMENOrdering Facility: [facility] Address: [address] [place] [address] Performed By: #### 2 4321-2 ####[facility] LABCLIA [id number] [place] [address] Creatinine [Mass/Vol] 2.53 mg/dL High 0.73-1.22 [facility] Comment on above: Order Comment: Speci men Type: BLOOD SPECIMENOrdering Facility: [facility] Address: [address] [place] [address] Performed By: #### 2 4321-2 ####[facility] LABCLIA [id number] [place] [address] Creatinine and Glomerular filtration rate.predicted panel (S/P/Bld) 25 mL/min/1.73m??? Low >=60 [facility] Comment on above: Order Comment: Speci men Type: BLOOD SPECIMENOrdering Facility: [facility] Address: [address] [place] [address] Result Comment: Etta mated Glomerular Filtration Rate [...] actual GFR. Performed By: #### 2 4321-2 ####[facility] LABCLIA [id number] [place] [address] Glucose [Mass/Vol] 111 mg/dL High 74-99 [facility] Comment on above: Order Comment: Speci men Type: BLOOD SPECIMENOrdering Facility: [facility] Address: [address] [place] [address] Result Comment: The [place] Diabetes Association (ADA) provides guidance for cutoff [...] Standards of Medical Care in Diabetes 2016, [place] [employer]. Diabetes Care. 2016.39(Suppl 1). Performed By: #### 2 4321-2 ####[facility] LABCLIA [id number] [place] [address] Potassium [Moles/Vol] 3.9 mmol/L Normal 3.7-5.1 [facility] Comment on above: Order Comment: Speci men Type: BLOOD SPECIMENOrdering Facility: [facility] Address: [address] [place], [place] [address] Performed By: #### 2 4321-2 ####[facility] LABCLIA [id number] [place] [address] Sodium [Moles/Vol] 137 mmol/L Normal 136-144 [facility] Comment on above: Order Comment: Speci men Type: BLOOD SPECIMENOrdering Facility: [facility] Address: [address] [place] [address] Performed By: #### 2 4321-2 ####[facility] LABCLIA [id number] [place] [address] Urea nitrogen [Mass/Vol] 57 mg/dL High 9-24 [facility] Comment on above: Order Comment: Speci men Type: BLOOD SPECIMENOrdering Facility: [facility] Address: [address] [place] [id number] Performed By: #### 2 4321-2 ####[facility] LABCLIA [id number] [place] [address] CNPNon 09-10-2024 CNPN Normal [facility] NT-proBNP SerPl-mCncon 09-10 Natriuretic peptide.B prohormone N-Terminal [Mass/Vol] 10448 pg/mL High <450 [facility] Comment on above: Order Comment: Speci men Type: BLOOD SPECIMENOrdering Facility: [facility] Address: [address] [place] [address] Performed By: #### 3 3762-6 ####[facility] LABCLIA [id number] [place] [address] [place] PSA SerPl-ncon 09-10-2024 Prostate specific Ag [Mass/Vol] ng/mL Normal <2.60 [facility] Comment on above: Order Comment: Speci men Type: BLOOD SPECIMENOrdering Facility: [facility] Address: [address] [place] [address] Result Comment: Tota l PSA test methodology used is the Electrochemiluminescence Immunoassay by [employer]. Total PSA values by differing methodologies cannot be interchanged. Performed By: #### 2 857-1 ####[facility] LABCLIA [id number] [place] [address] [place] Urinalysis complete panel (U )on 09-10-2024 Bacteria LM.HPF (Urine sed) [#/Area] Negative Normal Negative [facility] Comment on above: Order Comment: Speci men Type: URINE SPECIMENOrdering Facility: [facility] Address: [address] [place] [address] Performed By: #### 2 4356-8 ####[facility] LABCLIA [id number] [place] [address] [place] Bilirubin Ql (U) Negative Normal Negative [facility] Comment on above: Order Comment: Speci men Type: URINE SPECIMENOrdering Facility: [facility] Address: [address] [place] [address] Performed By: #### 2 4356-8 ####[facility] LABCLIA [id number] [address] [address] [place] Clarity (Unsp spec) Clear Normal Clear [facility] Comment on above: Order Comment: Speci men Type: URINE SPECIMENOrdering Facility: [facility] Address: [address] [place] [address] Performed By: #### 2 4356-8 ####[facility] LABCLIA [id number] [place] [address] [place] Color (U) Yellow Normal Yellow [facility] Comment on above: Order Comment: Speci men Type: URINE SPECIMENOrdering Facility: [facility] Address: [address] [place] [address] Performed By: #### 2 4356-8 ####[facility] LABCLIA [id number] [place] [address] [place] Epithelial cells LM.HPF (Urine sed) [#/Area] None Seen Normal [facility] Comment on above: Order Comment: Speci men Type: URINE SPECIMENOrdering Facility: [facility] Address: [address] [place] [address] Performed By: #### 2 4356-8 ####[facility] LABCLIA [id number] [place] [address] [place] Glucose Test strip (U) [Mass/Vol] Trace Abnormal Negative [facility] Comment on above: Order Comment: Speci men Type: URINE SPECIMENOrdering Facility: [facility] Address: [address] [place] [address] Performed By: #### 2 4356-8 ####[facility] LABCLIA [id number] [place] [id number] [place] Hemoglobin Ql (U) Negative Normal Negative [facility] Comment on above: Order Comment: Speci men Type: URINE SPECIMENOrdering Facility: [facility] Address: [address] [place] [address] Performed By: #### 2 4356-8 ####[facility] LABCLIA [id number] [place] [address] [place] Hyaline casts (Urine sed) [#/Area] 0 /[LPF] Normal 0 /LPF [facility] Comment on above: Order Comment: Speci men Type: URINE SPECIMENOrdering Facility: [facility] Address: [address] [place] [address] Performed By: #### 2 4356-8 ####[facility] LABCLIA [id number] [place] [address] [place] Ketones Ql (U) Negative Normal Negative [facility] Comment on above: Order Comment: Speci men Type: URINE SPECIMENOrdering Facility: [facility] Address: [address] [place] [address] Performed By: #### 2 4356-8 ####[facility] LABCLIA [id number] [place] [address] [place] Leukocyte esterase Test strip Ql (U) Negative Normal Negative [facility] Comment on above: Order Comment: Speci men Type: URINE SPECIMENOrdering Facility: [facility] Address: [address] [place] [address] Performed By: #### 2 4356-8 ####[facility] LABCLIA [id number] [place] [address] [place] Nitrite Ql (U) Negative Normal Negative [facility] Comment on above: Order Comment: Speci men Type: URINE SPECIMENOrdering Facility: [facility] Address: [address] [place] [address] Performed By: #### 2 4356-8 ####[facility] LABCLIA [id number] [place] [address] [place] pH (U) 7.0 [pH] Normal <8.5 [facility] Comment on above: Order Comment: Speci men Type: URINE SPECIMENOrdering Facility: [facility] Address: [address] [place] [address] Performed By: #### 2 4356-8 ####[facility] LABIA [id number] [place] [address] [place] Protein (U) [Mass/Vol] 1+ Abnormal Negative [facility] Comment on above: Order Comment: Speci men Type: URINE SPECIMENOrdering Facility: [facility] Address: [address] [place] [address] Performed By: #### 2 4356-8 ####[facility] LABIA [id number] [place] [address] [place] RBC LM.HPF (Urine sed) [#/Area] 0-2 /HPF Normal 0-2 /HPF [facility] Comment on above: Order Comment: Speci men Type: URINE SPECIMENOrdering Facility: [facility] Address: [address] [place] [address] Performed By: #### 2 4356-8 ####[facility] LABIA [id number] [place] [address] [place] Specific gravity (U) [Rel density] 1.011 Normal 1.005-1.030 [facility] Comment on above: Order Comment: Speci men Type: URINE SPECIMENOrdering Facility: [facility] Address: [address] [place] [address] Performed By: #### 2 4356-8 ####[facility] LABIA [id number] [place] [id number] [place] Urobilinogen Ql (U) 0.2 EU/dL Normal 0.2-1.0 EU/dL [facility] Comment on above: Order Comment: Speci men Type: URINE SPECIMENOrdering Facility: [facility] Address: [address] [place] [address] Performed By: #### 2 4356-8 ####[facility] LABCLIA [id number] [address] [address] [place] WBC LM.HPF (Urine sed) [#/Area] 0-5 /HPF Normal 0-5 /HPF [facility] Comment on above: Order Comment: Speci men Type: URINE SPECIMENOrdering Facility: [facility] Address: [address] [place] [address] Performed By: #### 2 4356-8 ####[facility] LABCLIA [id number] [address] [address] [place] CNPNon 09-07-2024 CNPN Normal [facility] CNPNon 09-03-2024 CNPN Normal [facility] Basic metabolic 2000 panelon 08-31-2024 Anion gap [Moles/Vol] 16 mmol/L High 8-15 [facility] Comment on above: Order Comment: Speci men Type: BLOOD SPECIMENOrdering Facility: [facility] Address: [address] [place] [address] Performed By: #### 2 4321-2 ####VIANNEY [facility] LABCLIA [id number] [place] [address] Calcium [Mass/Vol] 9.4 mg/dL Normal 8.5-10.2 [facility] Comment on above: Order Comment: Speci men Type: BLOOD SPECIMENOrdering Facility: [facility] Address: [address] [place] [address] Performed By: #### 2 4321-2 ####[facility] LABIA [id number] [place] [address] Chloride [Moles/Vol] 96 mmol/L Low 98-107 [facility] Comment on above: Order Comment: Speci men Type: BLOOD SPECIMENOrdering Facility: [facility] Address: [address] [place] [address] Performed By: #### 2 4321-2 ####[facility] LABCLIA [id number] [place] [address] CO2 [Moles/Vol] 22 mmol/L Normal 22-30 [facility] Comment on above: Order Comment: Speci men Type: BLOOD SPECIMENOrdering Facility: [facility] Address: [address] [place] [address] Performed By: #### 2 4321-2 ####[facility] LABCLIA [id number] [place] [address] Creatinine [Mass/Vol] 2.98 mg/dL High 0.73-1.22 [facility] Comment on above: Order Comment: Speci men Type: BLOOD SPECIMENOrdering Facility: [facility] Address: [address] [place] [address] Performed By: #### 2 4321-2 ####[facility] LABCLIA [id number] [place] [address] Creatinine and Glomerular filtration rate.predicted panel (S/P/Bld) 20 mL/min/1.73m??? Low >=60 [facility] Comment on above: Order Comment: Speci men Type: BLOOD SPECIMENOrdering Facility: [facility] Address: [address] [place] [address] Result Comment: Etta mated Glomerular Filtration Rate [...] actual GFR. Performed By: #### 2 4321-2 ####[facility] LABCLIA [id number] [place] [address] Glucose [Mass/Vol] 112 mg/dL High 74-99 [facility] Comment on above: Order Comment: Speci men Type: BLOOD SPECIMENOrdering Facility: [facility] Address: [address] [place] [address] Result Comment: The [place] Diabetes Association (ADA) provides guidance for cutoff [...] Standards of Medical Care in Diabetes 2016, [place] [employer]. Diabetes Care. 2016.39(Suppl 1). Performed By: #### 2 4321-2 ####[facility] LABCLIA [id number] [place] [address] Potassium [Moles/Vol] 4.3 mmol/L Normal 3.7-5.1 [facility] Comment on above: Order Comment: Speci men Type: BLOOD SPECIMENOrdering Facility: [facility] Address: [address] [place] [address] Performed By: #### 2 4321-2 ####[facility] LABCLIA [id number] [place] [address] Sodium [Moles/Vol] 134 mmol/L Low 136-144 [facility] Comment on above: Order Comment: Speci men Type: BLOOD SPECIMENOrdering Facility: [facility] Address: [address] [place] [address] Performed By: #### 2 4321-2 ####[facility] LABCLIA [id number] [place] [address] Urea nitrogen [Mass/Vol] 71 mg/dL High 9-24 [facility] Comment on above: Order Comment: Speci men Type: BLOOD SPECIMENOrdering Facility: [facility] Address: [address] [place] [address] Performed By: #### 2 4321-2 ####[facility] LABCLIA [id number] [place] [address] CBC W Auto Differential pane l (Bld)on 08-31-2024 Basophils (Bld) [#/Vol] 0.04 10*3/uL Normal <0.11 [facility] Comment on above: Order Comment: Speci men Type: BLOOD SPECIMENOrdering Facility: [facility] Address: [address] [place] [address] Performed By: #### 5 7021-8 ####[facility] LABCLIA [id number] [place] [address] Basophils/100 WBC (Bld) 0.6 % Normal [facility] Comment on above: Order Comment: Speci men Type: BLOOD SPECIMENOrdering Facility: [facility] Address: [address] [place] [address] Performed By: #### 5 7021-8 ####[facility] LABCLIA [id number] [place] [address] Differential cell count method Nom (Bld) Auto Normal [facility] Comment on above: Order Comment: Speci men Type: BLOOD SPECIMENOrdering Facility: [facility] Address: [address] [place] [address] Performed By: #### 5 7021-8 ####[facility] LABCLIA [id number] [place] [address] Eosinophils (Bld) [#/Vol] 0.03 10*3/uL Normal <0.46 [facility] Comment on above: Order Comment: Speci men Type: BLOOD SPECIMENOrdering Facility: [facility] Address: [address] [place] [address] Performed By: #### 5 7021-8 ####[facility] LABCLIA [id number] [place] [address] Eosinophils/100 WBC (Bld) 0.5 % Normal [facility] Comment on above: Order Comment: Speci men Type: BLOOD SPECIMENOrdering Facility: [facility] Address: [address] [place] [address] Performed By: #### 5 7021-8 ####[facility] LABCLIA [id number] [place] [address] Erythrocyte distribution width (RBC) [Ratio] 18.5 % High 11.5-15.0 [facility] Comment on above: Order Comment: Speci men Type: BLOOD SPECIMENOrdering Facility: [facility] Address: [address] [place] [address] Performed By: #### 5 7021-8 ####[facility] LABCLIA [id number] [place] [address] Hematocrit (Bld) [Volume fraction] 33.8 % Low 39.0-51.0 [facility] Comment on above: Order Comment: Speci men Type: BLOOD SPECIMENOrdering Facility: [facility] Address: [address] [place] [address] Performed By: #### 5 7021-8 ####[facility] LABCLIA [id number] [place] [address] Hemoglobin (Bld) [Mass/Vol] 10.5 g/dL Low 13.0-17.0 [facility] Comment on above: Order Comment: Speci men Type: BLOOD SPECIMENOrdering Facility: [facility] Address: [address] [place] [address] Performed By: #### 5 7021-8 ####[facility] LABCLIA [id number] [place] [address] Immature granulocytes (Bld) [#/Vol] 10*3/uL Normal <0.10 [facility] Comment on above: Order Comment: Speci men Type: BLOOD SPECIMENOrdering Facility: [facility] Address: [address] [place] [address] Performed By: #### 5 7021-8 ####[facility] LABCLIA [id number] [place] [address] Immature granulocytes/100 WBC (Bld) 0.3 % Normal [facility] Comment on above: Order Comment: Speci men Type: BLOOD SPECIMENOrdering Facility: [facility] Address: [address] [place] [address] Performed By: #### 5 7021-8 ####[facility] LABCLIA [id number] [place] [address] Lymphocytes (Bld) [#/Vol] 0.74 10*3/uL Low 1.00-4.00 [facility] Comment on above: Order Comment: Speci men Type: BLOOD SPECIMENOrdering Facility: [facility] Address: [address] [place] [address] Performed By: #### 5 7021-8 ####[facility] LABCLIA [id number] [place] [address] Lymphocytes/100 WBC (Bld) 11.8 % Normal [facility] Comment on above: Order Comment: Speci men Type: BLOOD SPECIMENOrdering Facility: [facility] Address: [address] [place] [address] Performed By: #### 5 7021-8 ####[facility] LABCLIA [id number] [place] [address] MCH (RBC) [Entitic mass] 27.9 pg Normal 26.0-34.0 [facility] Comment on above: Order Comment: Speci men Type: BLOOD SPECIMENOrdering Facility: [facility] Address: [address] [place] [address] Performed By: #### 5 7021-8 ####[facility] LABIA [id number] [place] [address] MCHC (RBC) [Mass/Vol] 31.1 g/dL Normal 30.5-36.0 [facility] Comment on above: Order Comment: Speci men Type: BLOOD SPECIMENOrdering Facility: [facility] Address: [address] [place] [address] Performed By: #### 5 7021-8 ####[facility] LABCLIA [id number] [place] [address] MCV (RBC) [Entitic vol] 89.7 fL Normal 80.0-100.0 [facility] Comment on above: Order Comment: Speci men Type: BLOOD SPECIMENOrdering Facility: [facility] Address: [address] [place] [address] Performed By: #### 5 7021-8 ####[facility] LABCLIA [id number] [place] [address] Monocytes (Bld) [#/Vol] 0.75 10*3/uL Normal <0.87 [facility] Comment on above: Order Comment: Speci men Type: BLOOD SPECIMENOrdering Facility: [facility] Address: [address] [place] [address] Performed By: #### 5 7021-8 ####[facility] LABCLIA [id number] [place] [address] Monocytes/100 WBC (Bld) 11.9 % Normal [facility] Comment on above: Order Comment: Speci men Type: BLOOD SPECIMENOrdering Facility: [facility] Address: [address] [place] [address] Performed By: #### 5 7021-8 ####[facility] LABCLIA [id number] [place] [address] Neutrophils (Bld) [#/Vol] 4.71 10*3/uL Normal 1.45-7.50 [facility] Comment on above: Order Comment: Speci men Type: BLOOD SPECIMENOrdering Facility: [facility] Address: [address] [place] [address] Performed By: #### 5 7021-8 ####[facility] LABCLIA [id number] [place] [address] Neutrophils/100 WBC (Bld) 74.9 % Normal [facility] Comment on above: Order Comment: Speci men Type: BLOOD SPECIMENOrdering Facility: [facility] Address: [address] [place] [address] Performed By: #### 5 7021-8 ####[facility] LABCLIA [id number] [place] [address] Nucleated RBC (Bld) [#/Vol] 0.02 10*3/uL High <0.01 [facility] Comment on above: Order Comment: Speci men Type: BLOOD SPECIMENOrdering Facility: [facility] Address: [address] [place] [address] Performed By: #### 5 7021-8 ####[facility] LABCLIA [id number] [place] [address] Nucleated RBC/100 WBC (Bld) [Ratio] 0.3 /100 WBC Normal [facility] Comment on above: Order Comment: Speci men Type: BLOOD SPECIMENOrdering Facility: [facility] Address: [address] [place] [address] Performed By: #### 5 7021-8 ####[facility] LABCLIA [id number] [place] [address] Platelet mean volume (Bld) [Entitic vol] 10.4 fL Normal 9.0-12.7 [facility] Comment on above: Order Comment: Speci men Type: BLOOD SPECIMENOrdering Facility: [facility] Address: [address] [place] [address] Performed By: #### 5 7021-8 ####[facility] LABCLIA [id number] [place] [address] Platelets (Bld) [#/Vol] 195 10*3/uL Normal 150-400 [facility] Comment on above: Order Comment: Speci men Type: BLOOD SPECIMENOrdering Facility: [facility] Address: [address] [place] [address] Performed By: #### 5 7021-8 ####[facility] LABCLIA [id number] [place] [address] RBC (Bld) [#/Vol] 3.77 10*6/uL Low 4.20-6.00 [facility] Comment on above: Order Comment: Speci men Type: BLOOD SPECIMENOrdering Facility: [facility] Address: [address] [place] [address] Performed By: #### 5 7021-8 ####[facility] LABCLIA [id number] [place] [address] WBC (Bld) [#/Vol] 6.29 10*3/uL Normal 3.70-11.00 [facility] Comment on above: Order Comment: Speci men Type: BLOOD SPECIMENOrdering Facility: [facility] Address: [address] [place] [address] Performed By: #### 5 7021-8 ####[facility] LABIA [id number] [place] [address] NT-proBNP [facility] 08-31 Natriuretic peptide.B prohormone N-Terminal [Mass/Vol] 81512 pg/mL High <450 [facility] Comment on above: Order Comment: Speci men Type: BLOOD SPECIMENOrdering Facility: [facility] Address: [address] [place] [address] Performed By: #### 3 3762-6 ####[facility] LABCLIA [id number] [facility] [place] [address] [place] CNPNon 08-28-2024 CNPN Normal [facility] Basic metabolic 2000 panelon 08-19-2024 Anion gap [Moles/Vol] 14 mmol/L Normal 8-15 [facility] Comment on above: Order Comment: Speci men Type: BLOOD SPECIMENOrdering Facility: [facility] Address: [address] [place] [address] Performed By: #### 2 4321-2, 02973-9 ####[facility] LABCLIA [id number] [place] [address] [place] Calcium [Mass/Vol] 9.1 mg/dL Normal 8.5-10.2 [facility] Comment on above: Order Comment: Speci men Type: BLOOD SPECIMENOrdering Facility: [facility] Address: [address] [place] [address] Performed By: #### 2 4321-2, 52056-4 ####[facility] LABCLIA [id number] [place] [address] [place] Chloride [Moles/Vol] 100 mmol/L Normal 98-107 [facility] Comment on above: Order Comment: Speci men Type: BLOOD SPECIMENOrdering Facility: [facility] Address: [address] [place] [address] Performed By: #### 2 4321-2, 40071-0 ####[facility] LABCLIA [id number] [place] [address] [place] CO2 [Moles/Vol] 28 mmol/L Normal 22-30 [facility] Comment on above: Order Comment: Speci men Type: BLOOD SPECIMENOrdering Facility: [facility] Address: [address] [place] [address] Performed By: #### 2 4321-2, 20660-0 ####[facility] LABCLIA [id number] [place] [address] [place] Creatinine [Mass/Vol] 2.05 mg/dL High 0.73-1.22 [facility] Comment on above: Order Comment: Speci men Type: BLOOD SPECIMENOrdering Facility: [facility] Address: [address] [place] [address] Performed By: #### 2 4321-2, 86551-0 ####[facility] LABCLIA [id number] [place] [address] [place] Creatinine and Glomerular filtration rate.predicted panel (S/P/Bld) 32 mL/min/1.73m??? Low >=60 [facility] Comment on above: Order Comment: Dylan olvera Type: BLOOD SPECIMENOrdering Facility: [facility] Address: [address] [place] [address] Result Comment: Etta mated Glomerular Filtration Rate [...] actual GFR. Performed By: #### 2 4321-2, 76773-5 ####[facility] LABCLIA [id number] [place] [address] [place] Glucose [Mass/Vol] 99 mg/dL Normal 74-99 [facility] Comment on above: Order Comment: Dylan olvera Type: BLOOD SPECIMENOrdering Facility: [facility] Address: [address] [place] [address] Result Comment: The [place] [employer] (ADA) provides guidance for cutoff [...] Standards of Medical Care in Diabetes 2016, [place] [employer]. Diabetes Care. 2016.39(Suppl 1). Performed By: #### 2 4321-2, 95137-3 ####[facility] LABCLIA [id number] [place] [id number] [place] Potassium [Moles/Vol] 3.9 mmol/L Normal 3.7-5.1 [facility] Comment on above: Order Comment: Speci men Type: BLOOD SPECIMENOrdering Facility: [facility] Address: [address] [place] [address] Performed By: #### 2 4321-2, 00382-5 ####[facility] LABCLIA [id number] [place] [address] [place] Sodium [Moles/Vol] 142 mmol/L Normal 136-144 [facility] Comment on above: Order Comment: Speci men Type: BLOOD SPECIMENOrdering Facility: [facility] Address: [address] [place] [address] Performed By: #### 2 4321-2, 09502-5 ####[facility] LABCLIA [id number] [place] [address] [place] Urea nitrogen [Mass/Vol] 43 mg/dL High 9-24 [facility] Comment on above: Order Comment: Speci men Type: BLOOD SPECIMENOrdering Facility: [facility] Address: [address] [place] [address] Performed By: #### 2 4321-2, 75120-0 ####[facility] LABCLIA [id number] [place] [address] [place] CBC W Auto Differential pane l (Bld)on 08-19-2024 Basophils (Bld) [#/Vol] 0.04 10*3/uL [facility] Basophils/100 WBC (Bld) 0.5 % [facility] Differential cell count method Nom (Bld) Auto [facility] Eosinophils (Bld) [#/Vol] 0.13 10*3/uL [facility] Eosinophils/100 WBC (Bld) 1.8 % [facility] Erythrocyte distribution width (RBC) [Ratio] 18.5 % High 11.5 - 15.0 % [facility] Hematocrit (Bld) [Volume fraction] 32.9 % Low 39.0 - 51.0 % [facility] Hemoglobin (Bld) [Mass/Vol] 10.3 g/dL Low 13.0 - 17.0 g/dL [facility] Immature granulocytes (Bld) [#/Vol] 0.04 10*3/uL [facility] Immature granulocytes/100 WBC (Bld) 0.5 % [facility] Interpretation and review of laboratory results Abnormal [facility] Lymphocytes (Bld) [#/Vol] 0.99 10*3/uL Low [facility] Lymphocytes/100 WBC (Bld) 13.6 % [facility] MCH (RBC) [Entitic mass] 28.5 pg 26.0 - 34.0 pg [facility] MCHC (RBC) [Mass/Vol] 31.3 g/dL 30.5 - 36.0 g/dL [facility] MCV (RBC) [Entitic vol] 90.9 fL 80.0 - 100.0 fL [facility] Monocytes (Bld) [#/Vol] 0.69 10*3/uL [facility] Monocytes/100 WBC (Bld) 9.5 % [facility] Neutrophils (Bld) [#/Vol] 5.40 10*3/uL [facility] Neutrophils/100 WBC (Bld) 74.1 % [facility] Nucleated RBC (Bld) [#/Vol] [facility] Nucleated RBC/100 WBC (Bld) [Ratio] 0.0 % /100 WBC [facility] Platelet mean volume (Bld) [Entitic vol] 10.3 fL 9.0 - 12.7 fL [facility] Platelets (Bld) [#/Vol] 192 10*3/uL [facility] RBC (Bld) [#/Vol] 3.62 10*6/uL Low 4.20 - 6.0 0 m/uL [facility] WBC (Bld) [#/Vol] 7.29 10*3/uL [facility] Basophils (Bld) [#/Vol] 0.04 10*3/uL Normal <0.11 [facility] Comment on above: Order Comment: Speci men Type: BLOOD SPECIMENOrdering Facility: [facility] Address: [address] [place] [address] Performed By: #### 5 7021-8 ####[facility] LABCLIA [id number] [address] [address] [place] Basophils/100 WBC (Bld) 0.5 % Normal [facility] Comment on above: Order Comment: Speci men Type: BLOOD SPECIMENOrdering Facility: [facility] Address: [address] [place] [address] Performed By: #### 5 7021-8 ####[facility] LABCLIA [id number] [place] [address] [place] Differential cell count method Nom (Bld) Auto Normal [facility] Comment on above: Order Comment: Speci men Type: BLOOD SPECIMENOrdering Facility: [facility] Address: [address] [place] [address] Performed By: #### 5 7021-8 ####[facility] LABCLIA [id number] [place] [address] [place] Eosinophils (Bld) [#/Vol] 0.13 10*3/uL Normal <0.46 [facility] Comment on above: Order Comment: Speci men Type: BLOOD SPECIMENOrdering Facility: [facility] Address: [address] [place] [address] Performed By: #### 5 7021-8 ####[facility] LABCLIA [id number] [place] [address] [place] Eosinophils/100 WBC (Bld) 1.8 % Normal [facility] Comment on above: Order Comment: Speci men Type: BLOOD SPECIMENOrdering Facility: [facility] Address: [address] [place] [address] Performed By: #### 5 7021-8 ####[facility] LABCLIA [id number] [place] [address] [place] Erythrocyte distribution width (RBC) [Ratio] 18.5 % High 11.5-15.0 [facility] Comment on above: Order Comment: Speci men Type: BLOOD SPECIMENOrdering Facility: [facility] Address: [address] [place] [address] Performed By: #### 5 7021-8 ####[facility] LABCLIA [id number] [place] [address] [place] Hematocrit (Bld) [Volume fraction] 32.9 % Low 39.0-51.0 [facility] Comment on above: Order Comment: Speci men Type: BLOOD SPECIMENOrdering Facility: [facility] Address: [address] [place] [address] Performed By: #### 5 7021-8 ####[facility] LABIA [id number] [place] [address] [place] Hemoglobin (Bld) [Mass/Vol] 10.3 g/dL Low 13.0-17.0 [facility] Comment on above: Order Comment: Speci men Type: BLOOD SPECIMENOrdering Facility: [facility] Address: [address] [place] [address] Performed By: #### 5 7021-8 ####[facility] LABIA [id number] [place] [address] [place] Immature granulocytes (Bld) [#/Vol] 0.04 10*3/uL Normal <0.10 [facility] Comment on above: Order Comment: Speci men Type: BLOOD SPECIMENOrdering Facility: [facility] Address: [address] [place] [address] Performed By: #### 5 7021-8 ####[facility] LABIA [id number] [place] [address] [place] Immature granulocytes/100 WBC (Bld) 0.5 % Normal [facility] Comment on above: Order Comment: Speci men Type: BLOOD SPECIMENOrdering Facility: [facility] Address: [address] [place] [address] Performed By: #### 5 7021-8 ####[facility] LABIA [id number] [place] [address] [place] Lymphocytes (Bld) [#/Vol] 0.99 10*3/uL Low 1.00-4.00 [facility] Comment on above: Order Comment: Speci men Type: BLOOD SPECIMENOrdering Facility: [facility] Address: [address] [place] [address] Performed By: #### 5 7021-8 ####[facility] LABCLIA [id number] [place] [address] [place] Lymphocytes/100 WBC (Bld) 13.6 % Normal [facility] Comment on above: Order Comment: Speci men Type: BLOOD SPECIMENOrdering Facility: [facility] Address: [address] [place] [address] Performed By: #### 5 7021-8 ####[facility] LABIA [id number] [place] [address] [place] MCH (RBC) [Entitic mass] 28.5 pg Normal 26.0-34.0 [facility] Comment on above: Order Comment: Speci men Type: BLOOD SPECIMENOrdering Facility: [facility] Address: [address] [place] [address] Performed By: #### 5 7021-8 ####[facility] LABIA [id number] [place] [address] [place] MCHC (RBC) [Mass/Vol] 31.3 g/dL Normal 30.5-36.0 [facility] Comment on above: Order Comment: Speci men Type: BLOOD SPECIMENOrdering Facility: [facility] Address: [address] [place] [address] Performed By: #### 5 7021-8 ####[facility] LABCLIA [id number] [place] [address] [place] MCV (RBC) [Entitic vol] 90.9 fL Normal 80.0-100.0 [facility] Comment on above: Order Comment: Speci men Type: BLOOD SPECIMENOrdering Facility: [facility] Address: [address] [place] [address] Performed By: #### 5 7021-8 ####[facility] LABCLIA [id number] [place] [address] [place] Monocytes (Bld) [#/Vol] 0.69 10*3/uL Normal <0.87 [facility] Comment on above: Order Comment: Speci men Type: BLOOD SPECIMENOrdering Facility: [facility] Address: [address] [place] [address] Performed By: #### 5 7021-8 ####[facility] LABCLIA [id number] [place] [address] [place] Monocytes/100 WBC (Bld) 9.5 % Normal [facility] Comment on above: Order Comment: Speci men Type: BLOOD SPECIMENOrdering Facility: [facility] Address: [address] [place] [address] Performed By: #### 5 7021-8 ####[facility] LABCLIA [id number] [place] [address] [place] Neutrophils (Bld) [#/Vol] 5.40 10*3/uL Normal 1.45-7.50 [facility] Comment on above: Order Comment: Speci men Type: BLOOD SPECIMENOrdering Facility: [facility] Address: [address] [place] [address] Performed By: #### 5 7021-8 ####[facility] LABCLIA [id number] [place] [address] [place] Neutrophils/100 WBC (Bld) 74.1 % Normal [facility] Comment on above: Order Comment: Speci men Type: BLOOD SPECIMENOrdering Facility: [facility] Address: [address] [place] [address] Performed By: #### 5 7021-8 ####[facility] LABCLIA [id number] [place] [address] [place] Nucleated RBC (Bld) [#/Vol] 10*3/uL Normal <0.01 [facility] Comment on above: Order Comment: Speci men Type: BLOOD SPECIMENOrdering Facility: [facility] Address: [address] [place] [address] Performed By: #### 5 7021-8 ####[facility] LABCLIA [id number] [place] [address] [place] Nucleated RBC/100 WBC (Bld) [Ratio] 0.0 /100 WBC Normal [facility] Comment on above: Order Comment: Speci men Type: BLOOD SPECIMENOrdering Facility: [facility] Address: [address] [place] [address] Performed By: #### 5 7021-8 ####[facility] LABCLIA [id number] [place] [address] [place] Platelet mean volume (Bld) [Entitic vol] 10.3 fL Normal 9.0-12.7 [facility] Comment on above: Order Comment: Speci men Type: BLOOD SPECIMENOrdering Facility: [facility] Address: [address] [place] [address] Performed By: #### 5 7021-8 ####[facility] LABIA [id number] [place] [address] [place] Platelets (Bld) [#/Vol] 192 10*3/uL Normal 150-400 [facility] Comment on above: Order Comment: Speci men Type: BLOOD SPECIMENOrdering Facility: [facility] Address: [address] [place] [address] Performed By: #### 5 7021-8 ####[facility] LABCLIA [id number] [place] [address] [place] RBC (Bld) [#/Vol] 3.62 10*6/uL Low 4.20-6.00 [facility] Comment on above: Order Comment: Speci men Type: BLOOD SPECIMENOrdering Facility: [facility] Address: [address] [place] [address] Performed By: #### 5 7021-8 ####[facility] LABCLIA [id number] [place] [address] [place] WBC (Bld) [#/Vol] 7.29 10*3/uL Normal 3.70-11.00 [facility] Comment on above: Order Comment: Speci men Type: BLOOD SPECIMENOrdering Facility: [facility] Address: [address] [place] [address] Performed By: #### 5 7021-8 ####[facility] LABIA [id number] [place] [address] [place] CNCNPATEDon 08-19-2024 CNCNPATED Normal [facility] CNOVon 08-19-2024 CNOV Normal [facility] HOLTER MONITOR 48 HOURon HOLTER MONITOR 48 HOUR Normal [facility] NT-proBNP SerPl-mCncon 08-19 Natriuretic peptide.B prohormone N-Terminal [Mass/Vol] 03126 pg/mL High <450 [facility] Comment on above: Order Comment: Speci men Type: BLOOD SPECIMENOrdering Facility: [facility] Address: [address] [place] [address] Performed By: #### 2 4321-2, 98803-6 ####[facility] LABIA [id number] [place] [address] [place] CNPNon 08-17-2024 CNPN Normal [facility] CNPNon 08-14-2024 CNPN Normal [facility] CNPNon 08-03-2024 CNPN Normal [facility] CNPNon 07-30-2024 CNPN Normal [facility] CBC panel Auto (Bld)on 07-26 Erythrocyte distribution width (RBC) [Ratio] 17.2 % High 11.5-15.0 [facility] Comment on above: Order Comment: Speci men Type: BLOOD SPECIMENOrdering Facility: [facility] Address: [address] [place] [address] Performed By: #### 5 8410-2 ####[facility] LABIA [id number] [place] [address] [place] Hematocrit (Bld) [Volume fraction] 41.0 % Normal 39.0-51.0 [facility] Comment on above: Order Comment: Speci men Type: BLOOD SPECIMENOrdering Facility: [facility] Address: [address] [place] [address] Performed By: #### 5 8410-2 ####[facility] LABIA [id number] [place] [address] [place] Hemoglobin (Bld) [Mass/Vol] 12.5 g/dL Low 13.0-17.0 [facility] Comment on above: Order Comment: Speci men Type: BLOOD SPECIMENOrdering Facility: [facility] Address: [address] [place] [address] Performed By: #### 5 8410-2 ####[facility] LABIA [id number] [place] [address] [place] MCH (RBC) [Entitic mass] 27.7 pg Normal 26.0-34.0 [facility] Comment on above: Order Comment: Speci men Type: BLOOD SPECIMENOrdering Facility: [facility] Address: [address] [place] [address] Performed By: #### 5 8410-2 ####[facility] LABIA [id number] [place] [address] [place] MCHC (RBC) [Mass/Vol] 30.5 g/dL Normal 30.5-36.0 [facility] Comment on above: Order Comment: Speci men Type: BLOOD SPECIMENOrdering Facility: [facility] Address: [address] [place] [address] Performed By: #### 5 8410-2 ####[facility] LABIA [id number] [place] [address] [place] MCV (RBC) [Entitic vol] 90.7 fL Normal 80.0-100.0 [facility] Comment on above: Order Comment: Speci men Type: BLOOD SPECIMENOrdering Facility: [facility] Address: [address] [place] [address] Performed By: #### 5 8410-2 ####[facility] LABIA [id number] [place] [address] [place] Nucleated RBC (Bld) [#/Vol] 10*3/uL Normal <0.01 [facility] Comment on above: Order Comment: Speci men Type: BLOOD SPECIMENOrdering Facility: [facility] Address: [address] [place] [address] Performed By: #### 5 8410-2 ####[facility] LABIA [id number] [place] [address] [place] Platelet mean volume (Bld) [Entitic vol] 10.9 fL Normal 9.0-12.7 [facility] Comment on above: Order Comment: Speci men Type: BLOOD SPECIMENOrdering Facility: [facility] Address: [address] [place] [address] Performed By: #### 5 8410-2 ####[facility] LABIA [id number] [place] [address] [place] Platelets (Bld) [#/Vol] 158 10*3/uL Normal 150-400 [facility] Comment on above: Order Comment: Speci men Type: BLOOD SPECIMENOrdering Facility: [facility] Address: [address] [place] [address] Performed By: #### 5 8410-2 ####[facility] LABIA [id number] [place] [address] [place] RBC (Bld) [#/Vol] 4.52 10*6/uL Normal 4.20-6.00 [facility] Comment on above: Order Comment: Speci men Type: BLOOD SPECIMENOrdering Facility: [facility] Address: [address] [place] [address] Performed By: #### 5 8410-2 ####[facility] LABCLIA [id number] [place] [address] [place] WBC (Bld) [#/Vol] 5.57 10*3/uL Normal 3.70-11.00 [facility] Comment on above: Order Comment: Speci men Type: BLOOD SPECIMENOrdering Facility: [facility] Address: [address] [place] [address] Performed By: #### 5 8410-2 ####[facility] LABCLIA [id number] [place] [address] [place] CNDSon 07-26-2024 CNDS Normal [facility] Comprehensive metabolic 2000 panelon 07-26-2024 Albumin [Mass/Vol] 3.3 g/dL Low 3.9-4.9 [facility] Comment on above: Order Comment: Speci men Type: BLOOD SPECIMENOrdering Facility: [facility] Address: [address] [place] [address] Performed By: #### 2 4323-8, 09693-0 ####[facility] [facility]CL[facility] [id number] [place] [address] [place] ALP [Catalytic activity/Vol] 86 U/L Normal 38-113 [facility] Comment on above: Order Comment: Speci men Type: BLOOD SPECIMENOrdering Facility: [facility] Address: [address] [place] [address] Performed By: #### 2 4323-8, 68131-1 ####[facility] LABCLIA [id number] [place] [address] [place] ALT [Catalytic activity/Vol] 15 U/L Normal 10-54 [facility] Comment on above: Order Comment: Speci men Type: BLOOD SPECIMENOrdering Facility: [facility] Address: [address] [place] [address] Performed By: #### 2 4323-8, ####[facility] LABCLIA [id number] [facility] [place] [id number] [place] Anion gap [Moles/Vol] 10 mmol/L Normal 8-15 [facility] Comment on above: Order Comment: Speci men Type: BLOOD SPECIMENOrdering Facility: [facility] Address: [address] [place], [place] [address] Performed By: #### 2 432-8, ####[facility] LABCLIA [id number] [place] [address] [place] AST [Catalytic activity/Vol] 26 U/L Normal 14-40 [facility] Comment on above: Order Comment: Speci men Type: BLOOD SPECIMENOrdering Facility: [facility] Address: [address] [place], [place] [id number] Result Comment: Resu lts may be falsely increased due to interference from hemolysis. Suggest reorder as clinically indicated. Performed By: #### 2 432-8, ####[facility] LABCLIA [id number] [place] [id number] [place] Bilirubin [Mass/Vol] 0.8 mg/dL Normal 0.2-1.3 [facility] Comment on above: Order Comment: Speci men Type: BLOOD SPECIMENOrdering Facility: [facility] Address: [address] [place] [address] Performed By: #### 2 4323-8, ####[facility] LABCLIA [id number] [facility] [address] [address] [place] Calcium [Mass/Vol] 8.8 mg/dL Normal 8.5-10.2 [facility] Comment on above: Order Comment: Speci men Type: BLOOD SPECIMENOrdering Facility: [facility] Address: [address] [place] [address] Performed By: #### 2 4323-8, ####[facility] LABCLIA [id number] [address] [address] [place] Chloride [Moles/Vol] 101 mmol/L Normal 98-107 [facility] Comment on above: Order Comment: Speci men Type: BLOOD SPECIMENOrdering Facility: [facility] Address: [address] [place] [address] Performed By: #### 2 4323-8, ####[facility] LABCLIA [id number] [place] [address] [place] CO2 [Moles/Vol] 30 mmol/L Normal 22-30 [facility] Comment on above: Order Comment: Speci men Type: BLOOD SPECIMENOrdering Facility: [facility] Address: [address] [place] [address] Performed By: #### 2 4323-8, ####[facility] LABCLIA [id number] [place] [address] [place] Creatinine [Mass/Vol] 2.02 mg/dL High 0.73-1.22 [facility] Comment on above: Order Comment: Speci men Type: BLOOD SPECIMENOrdering Facility: [facility] Address: [address] [place] [address] Performed By: #### 2 4323-8, ####[facility] LABCLIA [id number] [place] [address] [place] Creatinine and Glomerular filtration rate.predicted panel (S/P/Bld) 32 mL/min/1.73m??? Low >=60 [facility] Comment on above: Order Comment: Speci men Type: BLOOD SPECIMENOrdering Facility: [facility] Address: [address] [place] [address] Result Comment: Etta mated Glomerular Filtration Rate [...] actual GFR. Performed By: #### 2 4323-8, ####[facility] LABCLIA [id number] [place] [address] [place] Glucose [Mass/Vol] 121 mg/dL High 74-99 [facility] Comment on above: Order Comment: Dylan olvera Type: BLOOD SPECIMENOrdering Facility: [facility] Address: [address] [place] [address] Result Comment: The [place] Diabetes Association (ADA) provides guidance for cutoff [...] Standards of Medical Care in Diabetes 2016, [place] [employer]. Diabetes Care. 2016.39(Suppl 1). Performed By: #### 2 4323-8, ####[facility] LABCLIA [id number] [place] [id number] [place] Potassium [Moles/Vol] 4.2 mmol/L Normal 3.7-5.1 [facility] Comment on above: Order Comment: Dylan olvera Type: BLOOD SPECIMENOrdering Facility: [facility] Address: [address] [place] [address] Performed By: #### 2 4323-8, ####[facility] LABCLIA [id number] [place] [address] [place] Protein [Mass/Vol] 6.2 g/dL Low 6.3-8.0 [facility] Comment on above: Order Comment: Speci men Type: BLOOD SPECIMENOrdering Facility: [facility] Address: [address] [place] [address] Performed By: #### 2 4323-8, ####[facility] LABCLIA [id number] [place] [address] [place] Sodium [Moles/Vol] 141 mmol/L Normal 136-144 [facility] Comment on above: Order Comment: Speci men Type: BLOOD SPECIMENOrdering Facility: [facility] Address: [address] [place] [address] Performed By: #### 2 4323-8, ####[facility] LABCLIA [id number] [place] [address] [place] Urea nitrogen [Mass/Vol] 40 mg/dL High 9-24 [facility] Comment on above: Order Comment: Speci men Type: BLOOD SPECIMENOrdering Facility: [facility] Address: [address] [place] [address] Performed By: #### 2 4323-8, ####[facility] LABCLIA [id number] [place] [address] [place] Magnesium SerPl-mCncon 07-26 Magnesium [Mass/Vol] 2.5 mg/dL High 1.7-2.3 [facility] Comment on above: Order Comment: Speci men Type: BLOOD SPECIMENOrdering Facility: [facility] Address: [address] [place] [address] Performed By: #### 2 4323-8, 21701-9 ####[facility] LABCLIA [id number] [place] [id number] [place] PT EDon 07-26-2024 PT ED Normal [facility] THERAPY NTon 07-26-2024 THERAPY NT Normal [facility] Basic metabolic 2000 panelon 07-25-2024 Anion gap [Moles/Vol] 13 mmol/L Normal 8-15 [facility] Comment on above: Order Comment: Speci men Type: BLOOD SPECIMENOrdering Facility: [facility] Address: [address] [place] [address] Performed By: #### 2 4321-2, ####[facility] LABCLIA [id number] [place] [address] [place] Calcium [Mass/Vol] 8.9 mg/dL Normal 8.5-10.2 [facility] Comment on above: Order Comment: Speci men Type: BLOOD SPECIMENOrdering Facility: [facility] Address: [address] [place] [address] Performed By: #### 2 432-2, ####[facility] LABCLIA [id number] [place] [address] [place] Chloride [Moles/Vol] 99 mmol/L Normal 98-107 [facility] Comment on above: Order Comment: Speci men Type: BLOOD SPECIMENOrdering Facility: [facility] Address: [address] [place] [address] Performed By: #### 2 4321-2, ####[facility] LABCLIA [id number] [place] [id number] [place] CO2 [Moles/Vol] 29 mmol/L Normal 22-30 [facility] Comment on above: Order Comment: Speci men Type: BLOOD SPECIMENOrdering Facility: [facility] Address: [address] [place] [address] Performed By: #### 2 4321-2, ####[facility] LABCLIA [id number] [place] [id number] [place] Creatinine [Mass/Vol] 1.99 mg/dL High 0.73-1.22 [facility] Comment on above: Order Comment: Dylan olvera Type: BLOOD SPECIMENOrdering Facility: [facility] Address: [address] [place] [address] Performed By: #### 2 4321-2, ####[facility] LABCLIA [id number] [address] [place] Creatinine and Glomerular filtration rate.predicted panel (S/P/Bld) 33 mL/min/1.73m??? Low >=60 [facility] Comment on above: Order Comment: Dylan olvera Type: BLOOD SPECIMENOrdering Facility: [facility] Address: [address] [place] [address] Result Comment: Etta mated Glomerular Filtration Rate [...] actual GFR. Performed By: #### 2 4321-, ####[facility] LABCLIA [id number] [place] [address] [place] Glucose [Mass/Vol] 92 mg/dL Normal 74-99 [facility] Comment on above: Order Comment: Dylan olvera Type: BLOOD SPECIMENOrdering Facility: [facility] Address: [address] [place] [address] Result Comment: The [place] Diabetes Association (ADA) provides guidance for cutoff [...] Standards of Medical Care in Diabetes 2016, [place] Diabetes [employer]. Diabetes Care. 2016.39(Suppl 1). Performed By: #### 2 4320-2, ####[facility] LABCLIA [id number] [address] [address] [place] Potassium [Moles/Vol] 3.2 mmol/L Low 3.7-5.1 [facility] Comment on above: Order Comment: Speci men Type: BLOOD SPECIMENOrdering Facility: [facility] Address: [address] [place] [address] Performed By: #### 2 4320-10, ####[facility] LABCLIA [id number] [place] [address] [place] Sodium [Moles/Vol] 141 mmol/L Normal 136-144 [facility] Comment on above: Order Comment: Speci men Type: BLOOD SPECIMENOrdering Facility: [facility] Address: [address] [place] [address] Performed By: #### 2 4320-10, ####[facility] LABCLIA [id number] [place] [address] [place] Urea nitrogen [Mass/Vol] 40 mg/dL High 9-24 [facility] Comment on above: Order Comment: Speci men Type: BLOOD SPECIMENOrdering Facility: [facility] Address: [address] [place] [address] Performed By: #### 2 4320-10, ####[facility] LABCLIA [id number] [place] [id number] [place] CBC panel Auto (Bld)on 07-25 Erythrocyte distribution width (RBC) [Ratio] 17.3 % High 11.5-15.0 [facility] Comment on above: Order Comment: Speci men Type: BLOOD SPECIMENOrdering Facility: [facility] Address: [address] [place] [address] Performed By: #### 5 8410-2 ####[facility] LABCLIA [id number] [place] [address] [place] Hematocrit (Bld) [Volume fraction] 41.7 % Normal 39.0-51.0 [facility] Comment on above: Order Comment: Speci men Type: BLOOD SPECIMENOrdering Facility: [facility] Address: [address] [place] [address] Performed By: #### 5 8410-2 ####[facility] LABCLIA [id number] [place] [address] [place] Hemoglobin (Bld) [Mass/Vol] 12.8 g/dL Low 13.0-17.0 [facility] Comment on above: Order Comment: Speci men Type: BLOOD SPECIMENOrdering Facility: [facility] Address: [address] [place] [address] Performed By: #### 5 8410-2 ####[facility] LABCLIA [id number] [place] [address] [place] MCH (RBC) [Entitic mass] 27.9 pg Normal 26.0-34.0 [facility] Comment on above: Order Comment: Speci men Type: BLOOD SPECIMENOrdering Facility: [facility] Address: [address] [place] [address] Performed By: #### 5 8410-2 ####[facility] LABCLIA [id number] [place] [address] [place] MCHC (RBC) [Mass/Vol] 30.7 g/dL Normal 30.5-36.0 [facility] Comment on above: Order Comment: Speci men Type: BLOOD SPECIMENOrdering Facility: [facility] Address: [address] [place] [address] Performed By: #### 5 8410-2 ####[facility] LABCLIA [id number] [place] [address] [place] MCV (RBC) [Entitic vol] 91.0 fL Normal 80.0-100.0 [facility] Comment on above: Order Comment: Speci men Type: BLOOD SPECIMENOrdering Facility: [facility] Address: [address] [place] [address] Performed By: #### 5 8410-2 ####[facility] [id number] [place] [address] [place] Nucleated RBC (Bld) [#/Vol] 10*3/uL Normal <0.01 [facility] Comment on above: Order Comment: Speci men Type: BLOOD SPECIMENOrdering Facility: [facility] Address: [address] [place] [address] Performed By: #### 5 8410-2 ####[facility] [id number] [place] [address] [place] Platelet mean volume (Bld) [Entitic vol] 10.4 fL Normal 9.0-12.7 [facility] Comment on above: Order Comment: Speci men Type: BLOOD SPECIMENOrdering Facility: [facility] Address: [address] [place] [address] Performed By: #### 5 8410-2 ####[facility] [id number] [place] [address] [place] Platelets (Bld) [#/Vol] 150 10*3/uL Normal 150-400 [facility] Comment on above: Order Comment: Speci men Type: BLOOD SPECIMENOrdering Facility: [facility] Address: [address] [place] [address] Performed By: #### 5 8410-2 ####[facility] LABIA [id number] [place] [address] [place] RBC (Bld) [#/Vol] 4.58 10*6/uL Normal 4.20-6.00 [facility] Comment on above: Order Comment: Speci men Type: BLOOD SPECIMENOrdering Facility: [facility] Address: [address] [place] [address] Performed By: #### 5 8410-2 ####[facility] LABCLIA [id number] [address] [address] [place] WBC (Bld) [#/Vol] 5.10 10*3/uL Normal 3.70-11.00 [facility] Comment on above: Order Comment: Speci men Type: BLOOD SPECIMENOrdering Facility: [facility] Address: [address] [place] [address] Performed By: #### 5 8410-2 ####[facility] LABCLIA [id number] [place] [address] [place] Magnesium SerPl-mCncon 07-25 Magnesium [Mass/Vol] 2.3 mg/dL Normal 1.7-2.3 [facility] Comment on above: Order Comment: Speci men Type: BLOOD SPECIMENOrdering Facility: [facility] Address: [address] [place] [address] Performed By: #### 2 4321-2, ####[facility] LABCLIA [id number] [place] [id number] [place] NUTRITIONon 07-25-2024 NUTRITION Normal [facility] PT EDon 07-25-2024 PT ED Normal [facility] Basic metabolic 2000 panelon 07-24-2024 Anion gap [Moles/Vol] 15 mmol/L Normal 8-15 [facility] Comment on above: Order Comment: Speci men Type: BLOOD SPECIMENOrdering Facility: [facility] Address: [address] [place] [address] Performed By: #### 2 4321-2, ####[facility] LABCLIA [id number] [address] [address] [place] Calcium [Mass/Vol] 8.6 mg/dL Normal 8.5-10.2 [facility] Comment on above: Order Comment: Speci men Type: BLOOD SPECIMENOrdering Facility: [facility] Address: [address] [place] [address] Performed By: #### 2 4321-2, ####[facility] LABCLIA [id number] [facility] [place] [id number] [place] Chloride [Moles/Vol] 100 mmol/L Normal 98-107 [facility] Comment on above: Order Comment: Speci men Type: BLOOD SPECIMENOrdering Facility: [facility] Address: [address] [place] [address] Performed By: #### 2 4320-2, ####[facility] LABCLIA [id number] [place] [address] [place] CO2 [Moles/Vol] 25 mmol/L Normal 22-30 [facility] Comment on above: Order Comment: Speci men Type: BLOOD SPECIMENOrdering Facility: [facility] Address: [address] [place] [address] Performed By: #### 2 4320-2, ####[facility] LABCLIA [id number] [place] [id number] [place] Creatinine [Mass/Vol] 1.96 mg/dL High 0.73-1.22 [facility] Comment on above: Order Comment: Speci men Type: BLOOD SPECIMENOrdering Facility: [facility] Address: [address] [place] [address] Performed By: #### 2 4320-2, ####[facility] LABCLIA [id number] [facility] [place] [id number] [place] Creatinine and Glomerular filtration rate.predicted panel (S/P/Bld) 34 mL/min/1.73m??? Low >=60 [facility] Comment on above: Order Comment: Dylan olvera Type: BLOOD SPECIMENOrdering Facility: [facility] Address: [address] [place] [address] Result Comment: Etta mated Glomerular Filtration Rate [...] actual GFR. Performed By: #### 2 4321-2, ####[facility] [id number] [place] [address] [place] Glucose [Mass/Vol] 80 mg/dL Normal 74-99 [facility] Comment on above: Order Comment: Dylan olvera Type: BLOOD SPECIMENOrdering Facility: [facility] Address: [address] [place] [address] Result Comment: The [place] Diabetes Association (ADA) provides guidance for cutoff [...] Standards of Medical Care in Diabetes 2016, [place] [employer]. Diabetes Care. 2016.39(Suppl 1). Performed By: #### 2 4321-2, ####[facility] [id number] [place] [id number] [place] Potassium [Moles/Vol] 3.4 mmol/L Low 3.7-5.1 [facility] Comment on above: Order Comment: Dylan olvera Type: BLOOD SPECIMENOrdering Facility: [facility] Address: [address] [place] [id number] Performed By: #### 2 4321-2, ####[facility] LABCLIA [id number] [address] [address] [place] Sodium [Moles/Vol] 140 mmol/L Normal 136-144 [facility] Comment on above: Order Comment: Speci men Type: BLOOD SPECIMENOrdering Facility: [facility] Address: [address] [place] [address] Performed By: #### 2 4321-2, ####[facility] LABCLIA [id number] [place] [address] [place] Urea nitrogen [Mass/Vol] 40 mg/dL High 9-24 [facility] Comment on above: Order Comment: Speci men Type: BLOOD SPECIMENOrdering Facility: [facility] Address: [address] [place] [address] Performed By: #### 2 432-2, ####[facility] LABCLIA [id number] [place] [id number] [place] CASE MANAGEMon 07-24-2024 CASE MANAGEM Normal [facility] CBC panel Auto (Bld)on 07-24 Erythrocyte distribution width (RBC) [Ratio] 17.2 % High 11.5-15.0 [facility] Comment on above: Order Comment: Speci men Type: BLOOD SPECIMENOrdering Facility: [facility] Address: [address] [place] [address] Performed By: #### 5 8410-2 ####[facility] LABCLIA [id number] [place] [id number] [place] Hematocrit (Bld) [Volume fraction] 41.8 % Normal 39.0-51.0 [facility] Comment on above: Order Comment: Speci men Type: BLOOD SPECIMENOrdering Facility: [facility] Address: [address] [place] [address] Performed By: #### 5 8410-2 ####[facility] LABIA [id number] [place] [address] [place] Hemoglobin (Bld) [Mass/Vol] 13.1 g/dL Normal 13.0-17.0 [facility] Comment on above: Order Comment: Speci men Type: BLOOD SPECIMENOrdering Facility: [facility] Address: [address] [place] [address] Performed By: #### 5 8410-2 ####[facility] LABIA [id number] [place] [address] [place] MCH (RBC) [Entitic mass] 28.2 pg Normal 26.0-34.0 [facility] Comment on above: Order Comment: Speci men Type: BLOOD SPECIMENOrdering Facility: [facility] Address: [address] [place] [address] Performed By: #### 5 8410-2 ####[facility] [id number] [place] [address] [place] MCHC (RBC) [Mass/Vol] 31.3 g/dL Normal 30.5-36.0 [facility] Comment on above: Order Comment: Speci men Type: BLOOD SPECIMENOrdering Facility: [facility] Address: [address] [place] [address] Performed By: #### 5 8410-2 ####[facility] [id number] [place] [address] [place] MCV (RBC) [Entitic vol] 90.1 fL Normal 80.0-100.0 [facility] Comment on above: Order Comment: Speci men Type: BLOOD SPECIMENOrdering Facility: [facility] Address: [address] [place] [address] Performed By: #### 5 8410-2 ####[facility] [id number] [place] [address] [place] Nucleated RBC (Bld) [#/Vol] 10*3/uL Normal <0.01 [facility] Comment on above: Order Comment: Speci men Type: BLOOD SPECIMENOrdering Facility: [facility] Address: [address] [place] [address] Performed By: #### 5 8410-2 ####[facility] LABCLIA [id number] [place] [address] [place] Platelet mean volume (Bld) [Entitic vol] 11.2 fL Normal 9.0-12.7 [facility] Comment on above: Order Comment: Speci men Type: BLOOD SPECIMENOrdering Facility: [facility] Address: [address] [place] [address] Performed By: #### 5 8410-2 ####[facility] LABCLIA [id number] [place] [address] [place] Platelets (Bld) [#/Vol] 155 10*3/uL Normal 150-400 [facility] Comment on above: Order Comment: Speci men Type: BLOOD SPECIMENOrdering Facility: [facility] Address: [address] [place] [address] Performed By: #### 5 8410-2 ####[facility] LABCLIA [id number] [place] [address] [place] RBC (Bld) [#/Vol] 4.64 10*6/uL Normal 4.20-6.00 [facility] Comment on above: Order Comment: Speci men Type: BLOOD SPECIMENOrdering Facility: [facility] Address: [address] [place] [address] Performed By: #### 5 8410-2 ####[facility] LABCLIA [id number] [place] [address] [place] WBC (Bld) [#/Vol] 5.21 10*3/uL Normal 3.70-11.00 [facility] Comment on above: Order Comment: Speci men Type: BLOOD SPECIMENOrdering Facility: [facility] Address: [address] [place] [address] Performed By: #### 5 8410-2 ####[facility] LABCLIA [id number] [place] [id number] [place] CNCNPATEDon 07-24-2024 CNCNPATED Normal [facility] HOLTER 48 HOUR J2on 07-24-20 24 HOLTER 48 HOUR J2 Normal [facility] Magnesium SerPl-mCncon 07-24 Magnesium [Mass/Vol] 2.2 mg/dL Normal 1.7-2.3 [facility] Comment on above: Order Comment: Speci men Type: BLOOD SPECIMENOrdering Facility: [facility] Address: [address] [place] [address] Performed By: #### 2 4321-2, ####[facility] LABCLIA [id number] [place] [address] [place] NURSING PROGon 07-24-2024 NURSING PROG Normal [facility] Basic metabolic 2000 panelon 07-23-2024 Anion gap [Moles/Vol] 15 mmol/L Normal 8-15 [facility] Comment on above: Order Comment: Speci men Type: BLOOD SPECIMENOrdering Facility: [facility] Address: [address] [place] [address] Performed By: #### 2 4321-2, ####[facility] LABCLIA [id number] [place] [address] [place] Calcium [Mass/Vol] 8.7 mg/dL Normal 8.5-10.2 [facility] Comment on above: Order Comment: Speci men Type: BLOOD SPECIMENOrdering Facility: [facility] Address: [address] [place] [address] Performed By: #### 2 4321-2, 01911-1 ####[facility] LABCLIA [id number] [place] [address] [place] Chloride [Moles/Vol] 101 mmol/L Normal 98-107 [facility] Comment on above: Order Comment: Speci men Type: BLOOD SPECIMENOrdering Facility: [facility] Address: [address] [place] [address] Performed By: #### 2 4321-2, ####[facility] LABIA [id number] [place] [address] [place] CO2 [Moles/Vol] 21 mmol/L Low 22-30 [facility] Comment on above: Order Comment: Speci men Type: BLOOD SPECIMENOrdering Facility: [facility] Address: [address] [place] [address] Performed By: #### 2 4321-2, ####[facility] LABIA [id number] [place] [address] [place] Creatinine [Mass/Vol] 1.96 mg/dL High 0.73-1.22 [facility] Comment on above: Order Comment: Speci men Type: BLOOD SPECIMENOrdering Facility: [facility] Address: [address] [place] [address] Performed By: #### 2 4321-2, ####[facility] LABIA [id number] [place] [address] [place] Creatinine and Glomerular filtration rate.predicted panel (S/P/Bld) 34 mL/min/1.73m??? Low >=60 [facility] Comment on above: Order Comment: Speci men Type: BLOOD SPECIMENOrdering Facility: [facility] Address: [address] [place] [address] Result Comment: Etta mated Glomerular Filtration Rate [...] actual GFR. Performed By: #### 2 432-, ####[facility] LABCLIA [id number] [place] [address] [place] Glucose [Mass/Vol] 75 mg/dL Normal 74-99 [facility] Comment on above: Order Comment: Dylan olvera Type: BLOOD SPECIMENOrdering Facility: [facility] Address: [address] [place] [address] Result Comment: The [place] Diabetes Association (ADA) provides guidance for cutoff [...] Standards of Medical Care in Diabetes 2016, [place] [employer]. Diabetes Care. 2016.39(Suppl 1). Performed By: #### 2 4320-10, ####[facility] LABIA [id number] [place] [address] [place] Potassium [Moles/Vol] 4.1 mmol/L Normal 3.7-5.1 [facility] Comment on above: Order Comment: Dylan olvera Type: BLOOD SPECIMENOrdering Facility: [facility] Address: [address] [place] [address] Performed By: #### 2 43209-17, ####[facility] LABIA [id number] [place] [address] [place] Sodium [Moles/Vol] 137 mmol/L Normal 136-144 [facility] Comment on above: Order Comment: Dylan olvera Type: BLOOD SPECIMENOrdering Facility: [facility] Address: [address] [place] [address] Performed By: #### 2 4321-2, ####[facility] LABIA [id number] [place] [address] [place] Urea nitrogen [Mass/Vol] 38 mg/dL High 9-24 [facility] Comment on above: Order Comment: Speci men Type: BLOOD SPECIMENOrdering Facility: [facility] Address: [address] [place] [address] Performed By: #### 2 4321-2, ####[facility] LABIA [id number] [place] [address] [place] CBC panel Auto (Bld)on 07-23 Erythrocyte distribution width (RBC) [Ratio] 17.5 % High 11.5-15.0 [facility] Comment on above: Order Comment: Speci men Type: BLOOD SPECIMENOrdering Facility: [facility] Address: [address] [place] [address] Performed By: #### 5 8410-2 ####[facility] [id number] [place] [address] [place] Hematocrit (Bld) [Volume fraction] 42.9 % Normal 39.0-51.0 [facility] Comment on above: Order Comment: Speci men Type: BLOOD SPECIMENOrdering Facility: [facility] Address: [address] [place] [address] Performed By: #### 5 8410-2 ####[facility] [id number] [place] [id number] [place] Hemoglobin (Bld) [Mass/Vol] 12.7 g/dL Low 13.0-17.0 [facility] Comment on above: Order Comment: Speci men Type: BLOOD SPECIMENOrdering Facility: [facility] Address: [address] [place] [address] Performed By: #### 5 8410-2 ####[facility] LABIA [id number] [place] [address] [place] MCH (RBC) [Entitic mass] 28.2 pg Normal 26.0-34.0 [facility] Comment on above: Order Comment: Speci men Type: BLOOD SPECIMENOrdering Facility: [facility] Address: [address] [place] [address] Performed By: #### 5 8410-2 ####[facility] [id number] [place] [address] [place] MCHC (RBC) [Mass/Vol] 29.6 g/dL Low 30.5-36.0 [facility] Comment on above: Order Comment: Speci men Type: BLOOD SPECIMENOrdering Facility: [facility] Address: [address] [place] [address] Performed By: #### 5 8410-2 ####[facility] [id number] [place] [address] [place] MCV (RBC) [Entitic vol] 95.3 fL Normal 80.0-100.0 [facility] Comment on above: Order Comment: Speci men Type: BLOOD SPECIMENOrdering Facility: [facility] Address: [address] [place] [address] Performed By: #### 5 8410-2 ####[facility] [id number] [place] [address] [place] Nucleated RBC (Bld) [#/Vol] 10*3/uL Normal <0.01 [facility] Comment on above: Order Comment: Speci men Type: BLOOD SPECIMENOrdering Facility: [facility] Address: [address] [place] [address] Performed By: #### 5 8410-2 ####[facility] [id number] [place] [address] [place] Platelet mean volume (Bld) [Entitic vol] 11.0 fL Normal 9.0-12.7 [facility] Comment on above: Order Comment: Speci men Type: BLOOD SPECIMENOrdering Facility: [facility] Address: [address] [place] [address] Performed By: #### 5 8410-2 ####[facility] LABCLIA [id number] [place] [address] [place] Platelets (Bld) [#/Vol] 150 10*3/uL Normal 150-400 [facility] Comment on above: Order Comment: Speci men Type: BLOOD SPECIMENOrdering Facility: [facility] Address: [address] [place] [address] Performed By: #### 5 8410-2 ####[facility] LABCLIA [id number] [place] [address] [place] RBC (Bld) [#/Vol] 4.50 10*6/uL Normal 4.20-6.00 [facility] Comment on above: Order Comment: Speci men Type: BLOOD SPECIMENOrdering Facility: [facility] Address: [address] [place] [address] Performed By: #### 5 8410-2 ####[facility] LABCLIA [id number] [place] [address] [place] WBC (Bld) [#/Vol] 6.09 10*3/uL Normal 3.70-11.00 [facility] Comment on above: Order Comment: Speci men Type: BLOOD SPECIMENOrdering Facility: [facility] Address: [address] [place] [address] Performed By: #### 5 8410-2 ####[facility] LABCLIA [id number] [place] [address] [place] CONSULTon 07-23-2024 CONSULT Normal [facility] Magnesium SerPl-mCncon 07-23 Magnesium [Mass/Vol] 2.3 mg/dL Normal 1.7-2.3 [facility] Comment on above: Order Comment: Speci men Type: BLOOD SPECIMENOrdering Facility: [facility] Address: [address] [place], [place] [address] Performed By: #### 2 4321-2, 98918-8 ####[facility] LABCLIA [id number] [place] [id number] [place] NM CARDIAC AMYLOID SPECT/skin specialist n 07-23-2024 NM CARDIAC AMYLOID SPECT/CT Normal [facility] NUTRITIONon 07-23-2024 NUTRITION Normal [facility] Basic metabolic 2000 panelon 07-22-2024 Anion gap [Moles/Vol] 14 mmol/L Normal 8-15 [facility] Comment on above: Order Comment: Speci men Type: BLOOD SPECIMENOrdering Facility: [facility] Address: [address] [place] [address] Performed By: #### 2 4321-2 ####[facility] LABCLIA [id number] [place] [address] [place] Calcium [Mass/Vol] 9.1 mg/dL Normal 8.5-10.2 [facility] Comment on above: Order Comment: Speci men Type: BLOOD SPECIMENOrdering Facility: [facility] Address: [address] [place] [address] Performed By: #### 2 4321-2 ####[facility] LABCLIA [id number] [place] [address] [place] Chloride [Moles/Vol] 100 mmol/L Normal 98-107 [facility] Comment on above: Order Comment: Speci men Type: BLOOD SPECIMENOrdering Facility: [facility] Address: [address] [place] [address] Performed By: #### 2 4321-2 ####[facility] LABCLIA [id number] [place] [id number] [place] CO2 [Moles/Vol] 25 mmol/L Normal 22-30 [facility] Comment on above: Order Comment: Speci men Type: BLOOD SPECIMENOrdering Facility: [facility] Address: [address] [place] [address] Performed By: #### 2 4321-2 ####[facility] LABCLIA [id number] [place] [address] [place] Creatinine [Mass/Vol] 2.30 mg/dL High 0.73-1.22 [facility] Comment on above: Order Comment: Speci men Type: BLOOD SPECIMENOrdering Facility: [facility] Address: [address] [place] [address] Performed By: #### 2 4321-2 ####[facility] LABIA [id number] [place] [address] [place] Creatinine and Glomerular filtration rate.predicted panel (S/P/Bld) 28 mL/min/1.73m??? Low >=60 [facility] Comment on above: Order Comment: Speci men Type: BLOOD SPECIMENOrdering Facility: [facility] Address: [address] [place] [address] Result Comment: Etta mated Glomerular Filtration Rate [...] actual GFR. Performed By: #### 2 4321-2 ####[facility] LABCLIA [id number] [place] [id number] [place] Glucose [Mass/Vol] 114 mg/dL High 74-99 [facility] Comment on above: Order Comment: Speci men Type: BLOOD SPECIMENOrdering Facility: [facility] Address: [address] [place] [address] Result Comment: The [place] Diabetes Association (ADA) provides guidance for cutoff [...] Standards of Medical Care in Diabetes 2016, [place] Diabetes [employer]. Diabetes Care. 2016.39(Suppl 1). Performed By: #### 2 4321-2 ####[facility] LABIA [id number] [place] [address] [place] Potassium [Moles/Vol] 3.9 mmol/L Normal 3.7-5.1 [facility] Comment on above: Order Comment: Speci men Type: BLOOD SPECIMENOrdering Facility: [facility] Address: [address] [place] [address] Performed By: #### 2 4321-2 ####[facility] LABIA [id number] [place] [address] [place] Sodium [Moles/Vol] 139 mmol/L Normal 136-144 [facility] Comment on above: Order Comment: Rozi may Type: BLOOD SPECIMENOrdering Facility: [facility] Address: [address] [place] [address] Performed By: #### 2 4321-2 ####[facility] LABIA [id number] [place] [address] [place] Urea nitrogen [Mass/Vol] 39 mg/dL High 9-24 [facility] Comment on above: Order Comment: Rozi men Type: BLOOD SPECIMENOrdering Facility: [facility] Address: [address] [place] [address] Performed By: #### 2 4321-2 ####[facility] LABCLIA [id number] [place] [address] [place] CASE MGT INIT ASSESon 2023 CASE MGT INIT ASSES Normal [facility] CBC panel Auto (Bld)on 07-22 Erythrocyte distribution width (RBC) [Ratio] 17.0 % High 11.5-15.0 [facility] Comment on above: Order Comment: Speci men Type: BLOOD SPECIMENOrdering Facility: [facility] Address: [address] [place] [address] Performed By: #### 5 8410-2 ####[facility] LABIA [id number] [place] [address] [place] Hematocrit (Bld) [Volume fraction] 41.8 % Normal 39.0-51.0 [facility] Comment on above: Order Comment: Speci men Type: BLOOD SPECIMENOrdering Facility: [facility] Address: [address] [place] [address] Performed By: #### 5 8410-2 ####[facility] LABIA [id number] [place] [address] [place] Hemoglobin (Bld) [Mass/Vol] 13.3 g/dL Normal 13.0-17.0 [facility] Comment on above: Order Comment: Speci men Type: BLOOD SPECIMENOrdering Facility: [facility] Address: [address] [place] [address] Performed By: #### 5 8410-2 ####[facility] LABIA [id number] [place] [address] [place] MCH (RBC) [Entitic mass] 29.0 pg Normal 26.0-34.0 [facility] Comment on above: Order Comment: Speci men Type: BLOOD SPECIMENOrdering Facility: [facility] Address: [address] [place] [address] Performed By: #### 5 8410-2 ####[facility] LABIA [id number] [place] [address] [place] MCHC (RBC) [Mass/Vol] 31.8 g/dL Normal 30.5-36.0 [facility] Comment on above: Order Comment: Speci men Type: BLOOD SPECIMENOrdering Facility: [facility] Address: [address] [place] [address] Performed By: #### 5 8410-2 ####[facility] LABIA [id number] [place] [address] [place] MCV (RBC) [Entitic vol] 91.1 fL Normal 80.0-100.0 [facility] Comment on above: Order Comment: Speci men Type: BLOOD SPECIMENOrdering Facility: [facility] Address: [address] [place] [address] Performed By: #### 5 8410-2 ####[facility] LABIA [id number] [place] [address] [place] Nucleated RBC (Bld) [#/Vol] 10*3/uL Normal <0.01 [facility] Comment on above: Order Comment: Speci men Type: BLOOD SPECIMENOrdering Facility: [facility] Address: [address] [place] [address] Performed By: #### 5 8410-2 ####[facility] LABIA [id number] [place] [address] [place] Platelet mean volume (Bld) [Entitic vol] 10.9 fL Normal 9.0-12.7 [facility] Comment on above: Order Comment: Speci men Type: BLOOD SPECIMENOrdering Facility: [facility] Address: [address] [place] [address] Performed By: #### 5 8410-2 ####[facility] LABIA [id number] [place] [address] [place] Platelets (Bld) [#/Vol] 171 10*3/uL Normal 150-400 [facility] Comment on above: Order Comment: Speci men Type: BLOOD SPECIMENOrdering Facility: [facility] Address: [address] [place], [place] [address] Performed By: #### 5 8410-2 ####[facility] LABIA [id number] [address] [address] [place] RBC (Bld) [#/Vol] 4.59 10*6/uL Normal 4.20-6.00 [facility] Comment on above: Order Comment: Speci men Type: BLOOD SPECIMENOrdering Facility: [facility] Address: [address] [place] [address] Performed By: #### 5 8410-2 ####[facility] LABIA [id number] [place] [id number] [place] WBC (Bld) [#/Vol] 5.01 10*3/uL Normal 3.70-11.00 [facility] Comment on above: Order Comment: Speci men Type: BLOOD SPECIMENOrdering Facility: [facility] Address: [address] [place] [address] Performed By: #### 5 8410-2 ####[facility] LABIA [id number] [place] [id number] [place] ECG COMPLETEon 07-22-2024 ECG COMPLETE Normal [facility] HOLTER 24 HOUR J2on 07-22-20 24 HOLTER 24 HOUR J2 Normal [facility] IMMUNOFIXATION SCREEN, SERUM on 07-22-2024 MPA RESULT No M protein is identified. Normal No M protein is identified. [facility] Comment on above: Order Comment: Speci men Type: BLOOD SPECIMENOrdering Facility: [facility] Address: [address] [place] [address] Performed By: #### I [facility] ####[facility] LABIA [id number] [place] [id number] [place] STAFF REVIEW (MPA) Reviewed by Kinga Leonard MD Normal [facility] Comment on above: Order Comment: Speci men Type: BLOOD SPECIMENOrdering Facility: [facility] Address: [address] [place] [address] Performed By: #### I FESC ####[facility] LABIA [id number] [place] [address] [place] KAPPA/HELM,FREE,SERon 2023 Immunoglobulin light chains.kappa.free (S) [Mass/Vol] 55.3 mg/L High 3.3-19.4 [facility] Comment on above: Order Comment: Speci men Type: BLOOD SPECIMENOrdering Facility: [facility] Address: [address] [place] [address] Result Comment: Rare ly, increased serum free light chains levels may not be detected or accurately quantified due to prozone phenomenon or in high viscosity samples using this immunoturbidimetric assay. Correlation with other laboratory results and clinical findings is recommended.The [place] Free Light Chain was performed using the Binding Site Optilite immunoturbidimetric method. Result obtained with different assay methods or kits cannot be used interchangeably. Performed By: #### K LFRS ####[facility] LABIA [id number] [place] [address] [place] Immunoglobulin light chains.kappa/Immuno globulin light chains.lambda (S) [Mass ratio] 0.93 Normal 0.26-1.65 [facility] Comment on above: Order Comment: Speci men Type: BLOOD SPECIMENOrdering Facility: [facility] Address: [address] [place] [address] Performed By: #### K LFRS ####[facility] LABIA [id number] [place] [address] [place] Immunoglobulin light chains.lambda.free [Mass/Vol] 59.7 mg/L High 5.7-26.3 [facility] Comment on above: Order Comment: Speci men Type: BLOOD SPECIMENOrdering Facility: [facility] Address: [address] [place] [address] Result Comment: Rare ly, increased serum free [...] used interchangeably. Performed By: #### K LFRS ####[facility] LABIA [id number] [place] [address] [place] MONOCLONAL PROT UR W/INTERPo n 07-22-2024 STAFF REVIEW (UMPA) Reviewed by Kinga Leonard MD Normal [facility] Comment on above: Order Comment: Speci men Type: URINE SPECIMENOrdering Facility: [facility] Address: [address] [place] [address] Performed By: #### U RMPA ####[facility] LABIA [id number] [address] [place] UMPA RESULT No M protein is identified. Normal No M protein is identified. [facility] Comment on above: Order Comment: Speci men Type: URINE SPECIMENOrdering Facility: [facility] Address: [address] [place] [address] Performed By: #### U RMPA ####[facility] LABIA [id number] [place] [address] [place] Magnesium SerPl-mCncon 07-22 Magnesium [Mass/Vol] 2.4 mg/dL High 1.7-2.3 [facility] Comment on above: Order Comment: Speci men Type: BLOOD SPECIMENOrdering Facility: [facility] Address: [address] [place] [address] Performed By: #### 1 9123-9 ####[facility] LABIA [id number] [place] [address] [place] Prot/Creat Uron 07-22-2024 Protein/Creatinine (U) [Mass ratio] 0.36 mg/mg High <0.15 [facility] Comment on above: Order Comment: Speci men Type: URINE SPECIMENOrdering Facility: [facility] Address: [address] [place] [address] Result Comment: Adul t Proteinuria Categories:<0.15 mg/mg is considered normal to mildly increased0.15 - 0.50 mg/mg is considered moderately increased>0.50 mg/mg is considered severely increasedKDIGO. (2013). KDIGO 2012 Clinical Practice Guideline for the Evaluation and Management of Chronic Kidney Disease. Official Journal of the International Society of Nephrology, 3(1), 1-150. Performed By: #### 2 890-2 ####[facility] [id number] [place] [id number] [place] Protein/Creatinine (U) [Mass ratio]on 07-22-2024 Creatinine (U) [Mass/Vol] 30.5 mg/dL Normal 20.0-300.0 [facility] Comment on above: Order Comment: Speci men Type: URINE SPECIMENOrdering Facility: [facility] Address: [address] [place] [address] Performed By: #### 2 890-2 ####[facility] [id number] [place] [address] [place] Protein (U) [Mass/Vol] 11 mg/dL Normal 0-20 [facility] Comment on above: Order Comment: Speci men Type: URINE SPECIMENOrdering Facility: [facility] Address: [address] [place], [place] [address] Performed By: #### 2 890-2 ####[facility] LABIA [id number] [address] [address] [place] THERAPY NTon 07-22-2024 THERAPY NT Normal [facility] TYPE + SCREENon 07-22-2024 ABO O Normal [facility] Comment on above: Order Comment: Speci men Type: BLOOD SPECIMENOrdering Facility: [facility] Address: [address] [place] [address] Performed By: #### T SCR ####[facility] BLOOD BANKCLIA [id number] [place] [address] [place] Rh Nom (Bld) Positive Normal [facility] Comment on above: Order Comment: Speci men Type: BLOOD SPECIMENOrdering Facility: [facility] Address: [address] [place] [address] Performed By: #### T SCR ####CC [facility] BLOOD BANKCLIA [id number] [address] [place] TYPE AND SCREEN EXPIRATION 07/25/2024 23:59 Normal [facility] Comment on above: Order Comment: Speci men Type: BLOOD SPECIMENOrdering Facility: [facility] Address: [address] [place] [address] Performed By: #### T SCR ####[facility] BLOOD BANKCLIA [id number] [place] [address] [place] CBC W Auto Differential pane l (Bld)on 07-21-2024 Basophils (Bld) [#/Vol] 0.04 10*3/uL Normal <0.11 [facility] Comment on above: Order Comment: Speci men Type: BLOOD SPECIMENOrdering Facility: [facility] Address: [address] [place] [address] Performed By: #### 5 7021-8 ####[facility] LABCLIA [id number] [place] [address] [place] Basophils/100 WBC (Bld) 0.7 % Normal [facility] Comment on above: Order Comment: Speci men Type: BLOOD SPECIMENOrdering Facility: [facility] Address: [address] [place] [address] Performed By: #### 5 7021-8 ####[facility] LABCLIA [id number] [place] [address] [place] Differential cell count method Nom (Bld) Auto Normal [facility] Comment on above: Order Comment: Speci men Type: BLOOD SPECIMENOrdering Facility: [facility] Address: [address] [place] [address] Performed By: #### 5 7021-8 ####[facility] LABCLIA [id number] [place] [address] [place] Eosinophils (Bld) [#/Vol] 0.08 10*3/uL Normal <0.46 [facility] Comment on above: Order Comment: Speci men Type: BLOOD SPECIMENOrdering Facility: [facility] Address: [address] [place] [address] Performed By: #### 5 7021-8 ####[facility] LABCLIA [id number] [place] [address] [place] Eosinophils/100 WBC (Bld) 1.4 % Normal [facility] Comment on above: Order Comment: Speci men Type: BLOOD SPECIMENOrdering Facility: [facility] Address: [address] [place] [address] Performed By: #### 5 7021-8 ####[facility] LABCLIA [id number] [place] [address] [place] Erythrocyte distribution width (RBC) [Ratio] 17.0 % High 11.5-15.0 [facility] Comment on above: Order Comment: Speci men Type: BLOOD SPECIMENOrdering Facility: [facility] Address: [address] [place] [address] Performed By: #### 5 7021-8 ####[facility] LABCLIA [id number] [place] [address] [place] Hematocrit (Bld) [Volume fraction] 40.7 % Normal 39.0-51.0 [facility] Comment on above: Order Comment: Speci men Type: BLOOD SPECIMENOrdering Facility: [facility] Address: [address] [place] [address] Performed By: #### 5 7021-8 ####[facility] LABCLIA [id number] [place] [address] [place] Hemoglobin (Bld) [Mass/Vol] 12.8 g/dL Low 13.0-17.0 [facility] Comment on above: Order Comment: Speci men Type: BLOOD SPECIMENOrdering Facility: [facility] Address: [address] [place] [address] Performed By: #### 5 7021-8 ####[facility] LABCLIA [id number] [place] [address] [place] Immature granulocytes (Bld) [#/Vol] 10*3/uL Normal <0.10 [facility] Comment on above: Order Comment: Speci men Type: BLOOD SPECIMENOrdering Facility: [facility] Address: [address] [place] [address] Performed By: #### 5 7021-8 ####[facility] LABCLIA [id number] [place] [address] [place] Immature granulocytes/100 WBC (Bld) 0.2 % Normal [facility] Comment on above: Order Comment: Speci men Type: BLOOD SPECIMENOrdering Facility: [facility] Address: [address] [place] [address] Performed By: #### 5 7021-8 ####[facility] LABIA [id number] [place] [address] [place] Lymphocytes (Bld) [#/Vol] 0.88 10*3/uL Low 1.00-4.00 [facility] Comment on above: Order Comment: Speci men Type: BLOOD SPECIMENOrdering Facility: [facility] Address: [address] [place] [address] Performed By: #### 5 7021-8 ####[facility] LABCLIA [id number] [place] [address] [place] Lymphocytes/100 WBC (Bld) 15.8 % Normal [facility] Comment on above: Order Comment: Speci men Type: BLOOD SPECIMENOrdering Facility: [facility] Address: [address] [place] [address] Performed By: #### 5 7021-8 ####[facility] [id number] [place] [address] [place] MCH (RBC) [Entitic mass] 28.2 pg Normal 26.0-34.0 [facility] Comment on above: Order Comment: Speci men Type: BLOOD SPECIMENOrdering Facility: [facility] Address: [address] [place] [address] Performed By: #### 5 7021-8 ####[facility] [id number] [place] [address] [place] MCHC (RBC) [Mass/Vol] 31.4 g/dL Normal 30.5-36.0 [facility] Comment on above: Order Comment: Speci men Type: BLOOD SPECIMENOrdering Facility: [facility] Address: [address] [place] [address] Performed By: #### 5 7021-8 ####[facility] [id number] [place] [address] [place] MCV (RBC) [Entitic vol] 89.6 fL Normal 80.0-100.0 [facility] Comment on above: Order Comment: Speci men Type: BLOOD SPECIMENOrdering Facility: [facility] Address: [address] [place] [address] Performed By: #### 5 7021-8 ####[facility] [id number] [place] [address] [place] Monocytes (Bld) [#/Vol] 0.62 10*3/uL Normal <0.87 [facility] Comment on above: Order Comment: Speci men Type: BLOOD SPECIMENOrdering Facility: [facility] Address: [address] [place] [address] Performed By: #### 5 7021-8 ####[facility] LABCLIA [id number] [address] [address] [place] Monocytes/100 WBC (Bld) 11.1 % Normal [facility] Comment on above: Order Comment: Speci men Type: BLOOD SPECIMENOrdering Facility: [facility] Address: [address] [place] [address] Performed By: #### 5 7021-8 ####[facility] LABCLIA [id number] [place] [address] [place] Neutrophils (Bld) [#/Vol] 3.95 10*3/uL Normal 1.45-7.50 [facility] Comment on above: Order Comment: Speci men Type: BLOOD SPECIMENOrdering Facility: [facility] Address: [address] [place] [address] Performed By: #### 5 7021-8 ####[facility] LABCLIA [id number] [place] [address] [place] Neutrophils/100 WBC (Bld) 70.8 % Normal [facility] Comment on above: Order Comment: Speci men Type: BLOOD SPECIMENOrdering Facility: [facility] Address: [address] [place] [address] Performed By: #### 5 7021-8 ####[facility] LABCLIA [id number] [place] [address] [place] Nucleated RBC (Bld) [#/Vol] 10*3/uL Normal <0.01 [facility] Comment on above: Order Comment: Speci men Type: BLOOD SPECIMENOrdering Facility: [facility] Address: [address] [place] [address] Performed By: #### 5 7021-8 ####[facility] LABCLIA [id number] [address] [address] [place] Nucleated RBC/100 WBC (Bld) [Ratio] 0.0 /100 WBC Normal [facility] Comment on above: Order Comment: Speci men Type: BLOOD SPECIMENOrdering Facility: [facility] Address: [address] [place] [address] Performed By: #### 5 7021-8 ####[facility] LABIA [id number] [place] [address] [place] Platelet mean volume (Bld) [Entitic vol] 10.2 fL Normal 9.0-12.7 [facility] Comment on above: Order Comment: Speci men Type: BLOOD SPECIMENOrdering Facility: [facility] Address: [address] [place] [address] Performed By: #### 5 7021-8 ####[facility] LABIA [id number] [place] [address] [place] Platelets (Bld) [#/Vol] 161 10*3/uL Normal 150-400 [facility] Comment on above: Order Comment: Speci men Type: BLOOD SPECIMENOrdering Facility: [facility] Address: [address] [place] [address] Performed By: #### 5 7021-8 ####[facility] LABIA [id number] [place] [address] [place] RBC (Bld) [#/Vol] 4.54 10*6/uL Normal 4.20-6.00 [facility] Comment on above: Order Comment: Speci men Type: BLOOD SPECIMENOrdering Facility: [facility] Address: [address] [place] [address] Performed By: #### 5 7021-8 ####[facility] LABIA [id number] [place] [address] [place] WBC (Bld) [#/Vol] 5.58 10*3/uL Normal 3.70-11.00 [facility] Comment on above: Order Comment: Speci men Type: BLOOD SPECIMENOrdering Facility: [facility] Address: [address] [place] [address] Performed By: #### 5 7021-8 ####[facility] LABIA [id number] [place] [address] [place] Comprehensive metabolic 2000 panelon 07-21-2024 Albumin [Mass/Vol] 3.6 g/dL Low 3.9-4.9 [facility] Comment on above: Order Comment: Speci men Type: BLOOD SPECIMENOrdering Facility: [facility] Address: [address] [place] [address] Performed By: #### L [id number], 76156-7, 56246-0, 27743-8 ####[facility] LABCLIA [id number] [place] [address] [place] ALP [Catalytic activity/Vol] 92 U/L Normal 38-113 [facility] Comment on above: Order Comment: Speci men Type: BLOOD SPECIMENOrdering Facility: [facility] Address: [address] [place] [address] Performed By: #### L [id number], 65263-6, 57992-8, 37060-3 ####[facility] LABIA [id number] [place] [address] [place] ALT [Catalytic activity/Vol] 11 U/L Normal 10-54 [facility] Comment on above: Order Comment: Speci men Type: BLOOD SPECIMENOrdering Facility: [facility] Address: [address] [place] [address] Performed By: #### L [id number], 87734-6, 64304-2, 15468-3 ####[facility] LABIA [id number] [place] [address] [place] Anion gap [Moles/Vol] 12 mmol/L Normal 8-15 [facility] Comment on above: Order Comment: Speci men Type: BLOOD SPECIMENOrdering Facility: [facility] Address: [address] [place] [address] Performed By: #### L [id number], 09783-7, 74066-5, 90423-3 ####[facility] LABCLIA [id number] [place] [id number] [place] AST [Catalytic activity/Vol] 21 U/L Normal 14-40 [facility] Comment on above: Order Comment: Speci men Type: BLOOD SPECIMENOrdering Facility: [facility] Address: [address] [place] [address] Performed By: #### L [id number], 02674-1, 80535-2, 41390-8 ####[facility] LABCLIA [id number] [place] [address] [place] Bilirubin [Mass/Vol] 0.9 mg/dL Normal 0.2-1.3 [facility] Comment on above: Order Comment: Speci men Type: BLOOD SPECIMENOrdering Facility: [facility] Address: [address] [place] [address] Performed By: #### L [id number], 04280-2, 02494-9, 88056-2 ####[facility] LABCLIA [id number] [place] [address] [place] Calcium [Mass/Vol] 9.0 mg/dL Normal 8.5-10.2 [facility] Comment on above: Order Comment: Speci men Type: BLOOD SPECIMENOrdering Facility: [facility] Address: [address] [place] [address] Performed By: #### L [id number], 74267-2, 40883-6, 80196-5 ####[facility] LABCLIA [id number] [place] [id number] [place] Chloride [Moles/Vol] 100 mmol/L Normal 98-107 [facility] Comment on above: Order Comment: Speci men Type: BLOOD SPECIMENOrdering Facility: [facility] Address: [address] [place] [address] Performed By: #### L [id number], 66857-5, 33824-7, 62484-9 ####[facility] LABCLIA [id number] [place] [address] [place] CO2 [Moles/Vol] 25 mmol/L Normal 22-30 [facility] Comment on above: Order Comment: Speci men Type: BLOOD SPECIMENOrdering Facility: [facility] Address: [address] [place] [address] Performed By: #### L [id number], 00556-3, 01060-1, 62673-7 ####[facility] LABCLIA [id number] [place] [address] [place] Creatinine [Mass/Vol] 2.32 mg/dL High 0.73-1.22 [facility] Comment on above: Order Comment: Speci men Type: BLOOD SPECIMENOrdering Facility: [facility] Address: [address] [place] [address] Performed By: #### L [id number], 08052-3, , ####[facility] LABCLIA [id number] [place] [address] [place] Creatinine and Glomerular filtration rate.predicted panel (S/P/Bld) 27 mL/min/1.73m??? Low >=60 [facility] Comment on above: Order Comment: Speci men Type: BLOOD SPECIMENOrdering Facility: [facility] Address: [address] [place] [address] Result Comment: Etta mated Glomerular Filtration Rate [...] reflect actual GFR. Performed By: #### L [id number], 71015-5, 77549-2, 18767-5 ####[facility] LABCLIA [id number] [place] [address] [place] Glucose [Mass/Vol] 86 mg/dL Normal 74-99 [facility] Comment on above: Order Comment: Speci men Type: BLOOD SPECIMENOrdering Facility: [facility] Address: [address] [place] [address] Result Comment: The [place] [employer] (ADA) provides guidance for cutoff [...] Standards of Medical Care in Diabetes 2016, [place] [employer]. Diabetes Care. 2016.39(Suppl 1). Performed By: #### L [id number], 05221-5, 93273-3, 77040-0 ####[facility] LABCLIA [id number] [place] [address] [place] Potassium [Moles/Vol] 3.6 mmol/L Low 3.7-5.1 [facility] Comment on above: Order Comment: Speci men Type: BLOOD SPECIMENOrdering Facility: [facility] Address: [address] [place] [address] Performed By: #### L [id number], 01351-1, 99252-6, 57387-5 ####[facility] LABCLIA [id number] [place] [address] [place] Protein [Mass/Vol] 6.5 g/dL Normal 6.3-8.0 [facility] Comment on above: Order Comment: Speci men Type: BLOOD SPECIMENOrdering Facility: [facility] Address: [address] [place] [address] Performed By: #### L [id number], 14234-6, 60247-9, 75885-3 ####[facility] LABCLIA [id number] [address] [address] [place] Sodium [Moles/Vol] 137 mmol/L Normal 136-144 [facility] Comment on above: Order Comment: Speci men Type: BLOOD SPECIMENOrdering Facility: [facility] Address: [address] [place] [address] Performed By: #### L [id number], 10905-3, 02640-8, 56626-0 ####[facility] LABCLIA [id number] [place] [id number] [place] Urea nitrogen [Mass/Vol] 40 mg/dL High 9-24 [facility] Comment on above: Order Comment: Speci men Type: BLOOD SPECIMENOrdering Facility: [facility] Address: [address] [place] [address] Performed By: #### L [id number], 86626-2, 71100-5, 48687-8 ####[facility] LABCLIA [id number] [place] [id number] [place] FLL64mp 07-21-2024 ECG01 Normal [facility] ED NOTEon 07-21-2024 ED NOTE HNO ID: [id number] Author: AMY KIM RN Service: Emergency Medicine Author Type: Registered Nurse Type: ED Notes Filed: 07/21/2024 21:41 Note Text: Report called to Inocente Crenshaw received report Normal [facility] ED PROV NOTEon 07-21-2024 ED PROV NOTE Normal [facility] ED Triage Noteon 07-21-2024 ED Triage Note Normal [facility] HIGH SENSITIVITY TROPONIN T (INITIAL)on 07-21-2024 Troponin T.cardiac High sensitivity method [Mass/Vol] 65 ng/L High <12 [facility] Comment on above: Order Comment: Speci men Type: BLOOD SPECIMENOrdering Facility: [facility] Address: [address] [place] [address] Performed By: #### L [id number], 68600-4, 82674-6, 42009-5 ####[facility] LABIA [id number] [place] [address] [place] HIGH SENSITIVITY TROPONIN T (SECOND)on 07-21-2024 Troponin T.cardiac High sensitivity method [Mass/Vol] 42 ng/L High <12 [facility] Comment on above: Order Comment: Speci men Type: BLOOD SPECIMENOrdering Facility: [facility] Address: [address] [place] [address] Performed By: #### L [id number] ####[facility] LABIA [id number] [place] [address] [place] HIGH SENSITIVITY TROPONIN T (THIRD) 3 HRS AFTER INITIALon 07-21-2024 Troponin T.cardiac High sensitivity method [Mass/Vol] 47 ng/L High <12 [facility] Comment on above: Order Comment: Speci men Type: BLOOD SPECIMENOrdering Facility: [facility] Address: [address] [place] [address] Performed By: #### L [id number] ####[facility] LABIA [id number] [place] [address] [place] HISTORY PHYSICALon HISTORY PHYSICAL Normal [facility] Magnesium SerPl-mCncon 07-21 Magnesium [Mass/Vol] 2.5 mg/dL High 1.7-2.3 [facility] Comment on above: Order Comment: Speci men Type: BLOOD SPECIMENOrdering Facility: [facility] Address: [address] [place] [address] Performed By: #### L [id number], 09893-1, 13401-5, 17476-3 ####[facility] LABIA [id number] [place] [address] [place] NT-proBNP SerPl-mCncon 07-21 Natriuretic peptide.B prohormone N-Terminal [Mass/Vol] 66225 pg/mL High <450 [facility] Comment on above: Order Comment: Speci men Type: BLOOD SPECIMENOrdering Facility: [facility] Address: [address] [place] [address] Performed By: #### L [id number], 59203-3, 48225-2, 70462-3 ####[facility] LABCLIA [id number] [place] [address] [place] XR CHEST 2V FRONTAL/LATon XR CHEST 2V FRONTAL/LAT Normal [facility] CNPNon 06-02-2024 CNPN Normal [facility] ANES POSTPROC EVALon 024 ANES POSTPROC EVAL Normal [facility] CNPNon 05-20-2024 CNPN Normal [facility] CASE MANAGEMon 05-16-2024 CASE MANAGEM Normal [facility] CBC panel Auto (Bld)on 05-16 Erythrocyte distribution width (RBC) [Ratio] 19.3 % High 11.5-15.0 [facility] Comment on above: Order Comment: Speci men Type: BLOOD SPECIMENOrdering Facility: [facility] Address: [address] [place] [address] Performed By: #### 5 8410-2 ####[facility] LABCLIA [id number] [place] [address] [place] Hematocrit (Bld) [Volume fraction] 31.8 % Low 39.0-51.0 [facility] Comment on above: Order Comment: Speci men Type: BLOOD SPECIMENOrdering Facility: [facility] Address: [address] [place] [address] Performed By: #### 5 8410-2 ####[facility] LABCLIA [id number] [place] [id number] [place] Hemoglobin (Bld) [Mass/Vol] 9.4 g/dL Low 13.0-17.0 [facility] Comment on above: Order Comment: Speci men Type: BLOOD SPECIMENOrdering Facility: [facility] Address: [address] [place] [address] Performed By: #### 5 8410-2 ####[facility] LABCLIA [id number] [place] [address] [place] MCH (RBC) [Entitic mass] 30.8 pg Normal 26.0-34.0 [facility] Comment on above: Order Comment: Speci men Type: BLOOD SPECIMENOrdering Facility: [facility] Address: [address] [place] [address] Performed By: #### 5 8410-2 ####[facility] LABCLIA [id number] [place] [address] [place] MCHC (RBC) [Mass/Vol] 29.6 g/dL Low 30.5-36.0 [facility] Comment on above: Order Comment: Speci men Type: BLOOD SPECIMENOrdering Facility: [facility] Address: [address] [place] [address] Performed By: #### 5 8410-2 ####[facility] LABCLIA [id number] [place] [address] [place] MCV (RBC) [Entitic vol] 104.3 fL High 80.0-100.0 [facility] Comment on above: Order Comment: Speci men Type: BLOOD SPECIMENOrdering Facility: [facility] Address: [address] [place] [address] Performed By: #### 5 8410-2 ####[facility] LABCLIA [id number] [place] [address] [place] Nucleated RBC (Bld) [#/Vol] 10*3/uL Normal <0.01 [facility] Comment on above: Order Comment: Speci men Type: BLOOD SPECIMENOrdering Facility: [facility] Address: [address] [place] [address] Performed By: #### 5 8410-2 ####[facility] LABCLIA [id number] [place] [address] [place] Platelet mean volume (Bld) [Entitic vol] 10.8 fL Normal 9.0-12.7 [facility] Comment on above: Order Comment: Speci men Type: BLOOD SPECIMENOrdering Facility: [facility] Address: [address] [place] [address] Performed By: #### 5 8410-2 ####[facility] LABCLIA [id number] [place] [address] [place] Platelets (Bld) [#/Vol] 158 10*3/uL Normal 150-400 [facility] Comment on above: Order Comment: Speci men Type: BLOOD SPECIMENOrdering Facility: [facility] Address: [address] [place] [address] Performed By: #### 5 8410-2 ####[facility] LABIA [id number] [place] [address] [place] RBC (Bld) [#/Vol] 3.05 10*6/uL Low 4.20-6.00 [facility] Comment on above: Order Comment: Speci men Type: BLOOD SPECIMENOrdering Facility: [facility] Address: [address] [place] [address] Performed By: #### 5 8410-2 ####[facility] LABIA [id number] [place] [address] [place] WBC (Bld) [#/Vol] 4.48 10*3/uL Normal 3.70-11.00 [facility] Comment on above: Order Comment: Speci men Type: BLOOD SPECIMENOrdering Facility: [facility] Address: [address] [place] [address] Performed By: #### 5 8410-2 ####[facility] LABIA [id number] [place] [address] [place] CNDSon 05-16-2024 CNDS Normal [facility] Renal function 2000 panelon 05-16-2024 Albumin [Mass/Vol] 3.4 g/dL Low 3.9-4.9 [facility] Comment on above: Order Comment: Speci men Type: BLOOD SPECIMENOrdering Facility: [facility] Address: [address] [place] [address] Performed By: #### 2 4362-6 ####[facility] LABCLIA [id number] [place] [address] [place] Anion gap [Moles/Vol] 9 mmol/L Normal 8-15 [facility] Comment on above: Order Comment: Speci men Type: BLOOD SPECIMENOrdering Facility: [facility] Address: [address] [place] [address] Performed By: #### 2 4362-6 ####[facility] LABCLIA [id number] [place] [address] [place] Calcium [Mass/Vol] 9.0 mg/dL Normal 8.5-10.2 [facility] Comment on above: Order Comment: Speci men Type: BLOOD SPECIMENOrdering Facility: [facility] Address: [address] [place] [address] Performed By: #### 2 4362-6 ####[facility] LABCLIA [id number] [place] [address] [place] Chloride [Moles/Vol] 105 mmol/L Normal 98-107 [facility] Comment on above: Order Comment: Speci men Type: BLOOD SPECIMENOrdering Facility: [facility] Address: [address] [place] [address] Performed By: #### 2 4362-6 ####[facility] LABCLIA [id number] [place] [id number] [place] CO2 [Moles/Vol] 25 mmol/L Normal 22-30 [facility] Comment on above: Order Comment: Speci men Type: BLOOD SPECIMENOrdering Facility: [facility] Address: [address], [place] [address] Performed By: #### 2 4362-6 ####[facility] LABIA [id number] [place] [address] [place] Creatinine [Mass/Vol] 2.06 mg/dL High 0.73-1.22 [facility] Comment on above: Order Comment: Speci men Type: BLOOD SPECIMENOrdering Facility: [facility] Address: [address] [place] [address] Performed By: #### 2 4362-6 ####[facility] LABIA [id number] [place] [address] [place] Creatinine and Glomerular filtration rate.predicted panel (S/P/Bld) 32 mL/min/1.73m??? Low >=60 [facility] Comment on above: Order Comment: Speci men Type: BLOOD SPECIMENOrdering Facility: [facility] Address: [address] [place] [address] Result Comment: Etta mated Glomerular Filtration Rate [...] actual GFR. Performed By: #### 2 4362-6 ####[facility] LABIA [id number] [place] [address] [place] Glucose [Mass/Vol] 100 mg/dL High 74-99 [facility] Comment on above: Order Comment: Speci men Type: BLOOD SPECIMENOrdering Facility: [facility] Address: [address] [place] [address] Result Comment: The [place] Diabetes Association (ADA) provides guidance for cutoff [...] Standards of Medical Care in Diabetes 2016, [place] [employer]. Diabetes Care. 2016.39(Suppl 1). Performed By: #### 2 4362-6 ####[facility] LABCLIA [id number] [place] [address] [place] Phosphate [Mass/Vol] 2.4 mg/dL Low 2.7-4.8 [facility] Comment on above: Order Comment: Speci men Type: BLOOD SPECIMENOrdering Facility: [facility] Address: [address] [place] [address] Performed By: #### 2 4362-6 ####[facility] LABIA [id number] [place] [address] [place] Potassium [Moles/Vol] 3.9 mmol/L Normal 3.7-5.1 [facility] Comment on above: Order Comment: Speci men Type: BLOOD SPECIMENOrdering Facility: [facility] Address: [address] [place] [address] Performed By: #### 2 4362-6 ####[facility] LABCLIA [id number] [place] [address] [place] Sodium [Moles/Vol] 139 mmol/L Normal 136-144 [facility] Comment on above: Order Comment: Speci men Type: BLOOD SPECIMENOrdering Facility: [facility] Address: [address] [place] [address] Performed By: #### 2 4362-6 ####[facility] LABCLIA [id number] [place] [address] [place] Urea nitrogen [Mass/Vol] 23 mg/dL Normal 9-24 [facility] Comment on above: Order Comment: Speci men Type: BLOOD SPECIMENOrdering Facility: [facility] Address: [address] [place] [address] Performed By: #### 2 4362-6 ####[facility] LABCLIA [id number] [address] [address] [place] CASE MANAGEMon 05-15-2024 CASE MANAGEM Normal [facility] CASE MANAGEM Normal [facility] NUTRITIONon 05-15-2024 NUTRITION Normal [facility] PT EDon 05-15-2024 PT ED Normal [facility] Renal function 2000 panelon 05-15-2024 Albumin [Mass/Vol] 3.2 g/dL Low 3.9-4.9 [facility] Comment on above: Order Comment: Speci men Type: BLOOD SPECIMENOrdering Facility: [facility] Address: [address] [place] [address] Performed By: #### 2 4362-6 ####[facility] LABCLIA [id number] [place] [id number] [place] Anion gap [Moles/Vol] 9 mmol/L Normal 8-15 [facility] Comment on above: Order Comment: Speci men Type: BLOOD SPECIMENOrdering Facility: [facility] Address: [address] [place] [address] Performed By: #### 2 4362-6 ####[facility] LABCLIA [id number] [address] [address] [place] Calcium [Mass/Vol] 8.7 mg/dL Normal 8.5-10.2 [facility] Comment on above: Order Comment: Speci men Type: BLOOD SPECIMENOrdering Facility: [facility] Address: [address] [place] [address] Performed By: #### 2 4362-6 ####[facility] LABCLIA [id number] [facility] [place] [id number] [place] Chloride [Moles/Vol] 107 mmol/L Normal 98-107 [facility] Comment on above: Order Comment: Speci men Type: BLOOD SPECIMENOrdering Facility: [facility] Address: [address] [place] [address] Performed By: #### 2 4362-6 ####[facility] LABIA [id number] [place] [address] [place] CO2 [Moles/Vol] 24 mmol/L Normal 22-30 [facility] Comment on above: Order Comment: Speci men Type: BLOOD SPECIMENOrdering Facility: [facility] Address: [address] [place] [address] Performed By: #### 2 4362-6 ####[facility] LABIA [id number] [place] [address] [place] Creatinine [Mass/Vol] 2.26 mg/dL High 0.73-1.22 [facility] Comment on above: Order Comment: Speci men Type: BLOOD SPECIMENOrdering Facility: [facility] Address: [address] [place] [address] Performed By: #### 2 4362-6 ####[facility] LABIA [id number] [place] [address] [place] Creatinine and Glomerular filtration rate.predicted panel (S/P/Bld) 28 mL/min/1.73m??? Low >=60 [facility] Comment on above: Order Comment: Speci men Type: BLOOD SPECIMENOrdering Facility: [facility] Address: [address] [place] [address] Result Comment: Etta mated Glomerular Filtration Rate [...] actual GFR. Performed By: #### 2 4362-6 ####[facility] LABCLIA [id number] [place] [address] [place] Glucose [Mass/Vol] 120 mg/dL High 74-99 [facility] Comment on above: Order Comment: Speci men Type: BLOOD SPECIMENOrdering Facility: [facility] Address: [address] [place] [address] Result Comment: The [place] Diabetes Association (ADA) provides guidance for cutoff [...] Standards of Medical Care in Diabetes 2016, [place] [employer]. Diabetes Care. 2016.39(Suppl 1). Performed By: #### 2 4362-6 ####[facility] LABIA [id number] [place] [address] [place] Phosphate [Mass/Vol] 2.8 mg/dL Normal 2.7-4.8 [facility] Comment on above: Order Comment: Speci men Type: BLOOD SPECIMENOrdering Facility: [facility] Address: [address] [place] [address] Performed By: #### 2 4362-6 ####[facility] LABIA [id number] [place] [address] [place] Potassium [Moles/Vol] 3.8 mmol/L Normal 3.7-5.1 [facility] Comment on above: Order Comment: Speci men Type: BLOOD SPECIMENOrdering Facility: [facility] Address: [address] [place] [address] Performed By: #### 2 4362-6 ####[facility] LABCLIA [id number] [place] [id number] [place] Sodium [Moles/Vol] 140 mmol/L Normal 136-144 [facility] Comment on above: Order Comment: Speci men Type: BLOOD SPECIMENOrdering Facility: [facility] Address: [address] [place] [address] Performed By: #### 2 4362-6 ####[facility] LABCLIA [id number] [place] [id number] [place] Urea nitrogen [Mass/Vol] 24 mg/dL Normal 9-24 [facility] Comment on above: Order Comment: Speci men Type: BLOOD SPECIMENOrdering Facility: [facility] Address: [address] [place] [address] Performed By: #### 2 4362-6 ####[facility] LABIA [id number] [place] [address] [place] THERAPY NTon 05-15-2024 THERAPY NT Normal [facility] ALLIED HEALTHon 05-14-2024 ALLIED HEALTH Normal [facility] ANES PRE-OPon 05-14-2024 ANES PRE-OP Normal [facility] BRIEF OP NOTon 05-14-2024 BRIEF OP NOT Normal [facility] CBC panel Auto (Bld)on 05-14 Erythrocyte distribution width (RBC) [Ratio] 19.9 % High 11.5-15.0 [facility] Comment on above: Order Comment: Speci men Type: BLOOD SPECIMENOrdering Facility: [facility] Address: [address] [place] [address] Performed By: #### 5 8410-2 ####[facility] LABCLIA [id number] [place] [address] [place] Hematocrit (Bld) [Volume fraction] 29.2 % Low 39.0-51.0 [facility] Comment on above: Order Comment: Speci men Type: BLOOD SPECIMENOrdering Facility: [facility] Address: [address] [place] [address] Performed By: #### 5 8410-2 ####[facility] LABIA [id number] [place] [address] [place] Hemoglobin (Bld) [Mass/Vol] 8.6 g/dL Low 13.0-17.0 [facility] Comment on above: Order Comment: Speci men Type: BLOOD SPECIMENOrdering Facility: [facility] Address: [address] [place] [address] Performed By: #### 5 8410-2 ####[facility] LABIA [id number] [place] [address] [place] MCH (RBC) [Entitic mass] 29.7 pg Normal 26.0-34.0 [facility] Comment on above: Order Comment: Speci men Type: BLOOD SPECIMENOrdering Facility: [facility] Address: [address] [place] [address] Performed By: #### 5 8410-2 ####[facility] [id number] [place] [address] [place] MCHC (RBC) [Mass/Vol] 29.5 g/dL Low 30.5-36.0 [facility] Comment on above: Order Comment: Speci men Type: BLOOD SPECIMENOrdering Facility: [facility] Address: [address] [place] [address] Performed By: #### 5 8410-2 ####[facility] LABIA [id number] [place] [address] [place] MCV (RBC) [Entitic vol] 100.7 fL High 80.0-100.0 [facility] Comment on above: Order Comment: Speci men Type: BLOOD SPECIMENOrdering Facility: [facility] Address: [address] [place] [address] Performed By: #### 5 8410-2 ####[facility] [id number] [place] [address] [place] Nucleated RBC (Bld) [#/Vol] 10*3/uL Normal <0.01 [facility] Comment on above: Order Comment: Speci men Type: BLOOD SPECIMENOrdering Facility: [facility] Address: [address] [place] [address] Performed By: #### 5 8410-2 ####[facility] LABCLIA [id number] [place] [address] [place] Platelet mean volume (Bld) [Entitic vol] 10.3 fL Normal 9.0-12.7 [facility] Comment on above: Order Comment: Speci men Type: BLOOD SPECIMENOrdering Facility: [facility] Address: [address] [place] [address] Performed By: #### 5 8410-2 ####[facility] LABCLIA [id number] [place] [address] [place] Platelets (Bld) [#/Vol] 158 10*3/uL Normal 150-400 [facility] Comment on above: Order Comment: Speci men Type: BLOOD SPECIMENOrdering Facility: [facility] Address: [address] [place] [address] Performed By: #### 5 8410-2 ####[facility] LABCLIA [id number] [place] [address] [place] RBC (Bld) [#/Vol] 2.90 10*6/uL Low 4.20-6.00 [facility] Comment on above: Order Comment: Speci men Type: BLOOD SPECIMENOrdering Facility: [facility] Address: [address] [place] [address] Performed By: #### 5 8410-2 ####[facility] LABCLIA [id number] [place] [address] [place] WBC (Bld) [#/Vol] 4.27 10*3/uL Normal 3.70-11.00 [facility] Comment on above: Order Comment: Speci men Type: BLOOD SPECIMENOrdering Facility: [facility] Address: [address] [place] [address] Performed By: #### 5 8410-2 ####[facility] LABIA [id number] [place] [address] [place] Magnesium SerPl-mCncon 05-14 Magnesium [Mass/Vol] 2.1 mg/dL Normal 1.7-2.3 [facility] Comment on above: Order Comment: Speci men Type: BLOOD SPECIMENOrdering Facility: [facility] Address: [address] [place] [address] Performed By: #### 1 9123-9, 82831-7 ####[facility] [id number] [place] [address] [place] PTT, ANTICOAGULANT THERAPYon 05-14-2024 aPTT Coag (PPP) [Time] 37.6 s High 23.0-32.4 [facility] Comment on above: Order Comment: Speci men Type: BLOOD SPECIMENOrdering Facility: [facility] Address: [address] [place] [address] Performed By: #### P TTA ####[facility] LABIA [id number] [place] [address] [place] Renal function 2000 panelon 05-14-2024 Albumin [Mass/Vol] 3.3 g/dL Low 3.9-4.9 [facility] Comment on above: Order Comment: Speci men Type: BLOOD SPECIMENOrdering Facility: [facility] Address: [address] [place] [address] Performed By: #### 1 9123-9, 92814-4 ####[facility] LABIA [id number] [place] [address] [place] Anion gap [Moles/Vol] 12 mmol/L Normal 8-15 [facility] Comment on above: Order Comment: Speci men Type: BLOOD SPECIMENOrdering Facility: [facility] Address: [address] [place] [id number] Performed By: #### 1 9123-9, 12121-5 ####[facility] LABCLIA [id number] [address] [address] [place] Calcium [Mass/Vol] 9.0 mg/dL Normal 8.5-10.2 [facility] Comment on above: Order Comment: Speci men Type: BLOOD SPECIMENOrdering Facility: [facility] Address: [address] [place] [address] Performed By: #### 1 9123-9, 56999-9 ####[facility] LABCLIA [id number] [place] [address] [place] Chloride [Moles/Vol] 104 mmol/L Normal 98-107 [facility] Comment on above: Order Comment: Speci men Type: BLOOD SPECIMENOrdering Facility: [facility] Address: [address] [place] [address] Performed By: #### 1 9123-9, 74128-0 ####[facility] LABCLIA [id number] [place] [address] [place] CO2 [Moles/Vol] 24 mmol/L Normal 22-30 [facility] Comment on above: Order Comment: Speci men Type: BLOOD SPECIMENOrdering Facility: [facility] Address: [address] [place] [address] Performed By: #### 1 9123-9, 72311-5 ####[facility] LABCLIA [id number] [place] [address] [place] Creatinine [Mass/Vol] 2.14 mg/dL High 0.73-1.22 [facility] Comment on above: Order Comment: Speci men Type: BLOOD SPECIMENOrdering Facility: [facility] Address: [address] [place], [place] [address] Performed By: #### 1 9123-9, 57214-0 ####[facility] LABCLIA [id number] [place] [address] [place] Creatinine and Glomerular filtration rate.predicted panel (S/P/Bld) 30 mL/min/1.73m??? Low >=60 [facility] Comment on above: Order Comment: Specgregory olvera Type: BLOOD SPECIMENOrdering Facility: [facility] Address: [address] [place] [address] Result Comment: Etta mated Glomerular Filtration Rate [...] actual GFR. Performed By: #### 1 9123-9, 92345-7 ####[facility] LABIA [id number] [place] [address] [place] Glucose [Mass/Vol] 84 mg/dL Normal 74-99 [facility] Comment on above: Order Comment: Dylan olvera Type: BLOOD SPECIMENOrdering Facility: [facility] Address: [address] [place] [address] Result Comment: The [place] [employer] (ADA) provides guidance for cutoff [...] Standards of Medical Care in Diabetes 2016, [place] [employer]. Diabetes Care. 2016.39(Suppl 1). Performed By: #### 1 9123-9, 70396-9 ####[facility] LABCLIA [id number] [place] [address] [place] Phosphate [Mass/Vol] 2.7 mg/dL Normal 2.7-4.8 [facility] Comment on above: Order Comment: Speci men Type: BLOOD SPECIMENOrdering Facility: [facility] Address: [address] [place] [address] Performed By: #### 1 9123-9, 41990-0 ####[facility] LABCLIA [id number] [place] [address] [place] Potassium [Moles/Vol] 3.9 mmol/L Normal 3.7-5.1 [facility] Comment on above: Order Comment: Speci men Type: BLOOD SPECIMENOrdering Facility: [facility] Address: [address] [place] [address] Performed By: #### 1 9123-9, 87530-2 ####[facility] LABIA [id number] [place] [address] [place] Sodium [Moles/Vol] 140 mmol/L Normal 136-144 [facility] Comment on above: Order Comment: Speci men Type: BLOOD SPECIMENOrdering Facility: [facility] Address: [address] [place] [address] Performed By: #### 1 9123-9, 46489-7 ####[facility] LABIA [id number] [place] [address] [place] Urea nitrogen [Mass/Vol] 24 mg/dL Normal 9-24 [facility] Comment on above: Order Comment: Speci men Type: BLOOD SPECIMENOrdering Facility: [facility] Address: [address] [place] [address] Performed By: #### 1 9123-9, 40782-5 ####[facility] LABCLIA [id number] [place] [id number] [place] THERAPY NTon 05-14-2024 THERAPY NT Normal [facility] TYPE + SCREENon 05-14-2024 ABO O Normal [facility] Comment on above: Order Comment: Speci men Type: BLOOD SPECIMENOrdering Facility: [facility] Address: [address] [place] [address] Performed By: #### T SCR ####[facility]LOOD BANKCLIA [id number] [place] [id number] [place] HISTORICAL AB SCR STATUS Negative Normal [facility] Comment on above: Order Comment: Speci men Type: BLOOD SPECIMENOrdering Facility: [facility] Address: [address] [place] [address] Performed By: #### T SCR ####[facility] BLOOD BANKCLIA [id number] [place] [address] [place] Rh Nom (Bld) Positive Normal [facility] Comment on above: Order Comment: Speci men Type: BLOOD SPECIMENOrdering Facility: [facility] Address: [address] [place] [address] Performed By: #### T SCR ####[facility] BLOOD BANKCLIA [id number] [place] [address] [place] TYPE AND SCREEN EXPIRATION 05/17/2024 23:59 Normal [facility] Comment on above: Order Comment: Speci men Type: BLOOD SPECIMENOrdering Facility: [facility] Address: [address] [place] [address] Performed By: #### T SCR ####[facility] BLOOD BANKCLIA [id number] [place] [address] [place] Upper GI endoscopyon 024 Upper GI endoscopy Normal [facility] aPTT PPPon 05-14-2024 aPTT Coag (PPP) [Time] 25.4 s Normal 23.0-32.4 [facility] Comment on above: Order Comment: Speci men Type: BLOOD SPECIMENOrdering Facility: [facility] Address: [address] [place] [address] Performed By: #### 1 4979-9 ####[facility] LABIA [id number] [place] [address] [place] CBC panel Auto (Bld)on 05-13 Erythrocyte distribution width (RBC) [Ratio] 20.2 % High 11.5-15.0 [facility] Comment on above: Order Comment: Speci men Type: BLOOD SPECIMENOrdering Facility: [facility] Address: [address] [place] [address] Performed By: #### 5 8410-2 ####[facility] [id number] [place] [address] [place] Hematocrit (Bld) [Volume fraction] 28.2 % Low 39.0-51.0 [facility] Comment on above: Order Comment: Speci men Type: BLOOD SPECIMENOrdering Facility: [facility] Address: [address] [place] [address] Performed By: #### 5 8410-2 ####[facility] [id number] [place] [address] [place] Hemoglobin (Bld) [Mass/Vol] 8.3 g/dL Low 13.0-17.0 [facility] Comment on above: Order Comment: Speci men Type: BLOOD SPECIMENOrdering Facility: [facility] Address: [address] [place] [address] Performed By: #### 5 8410-2 ####[facility] LABIA [id number] [place] [address] [place] MCH (RBC) [Entitic mass] 29.6 pg Normal 26.0-34.0 [facility] Comment on above: Order Comment: Speci men Type: BLOOD SPECIMENOrdering Facility: [facility] Address: [address] [place] [address] Performed By: #### 5 8410-2 ####[facility] [id number] [place] [id number] [place] MCHC (RBC) [Mass/Vol] 29.4 g/dL Low 30.5-36.0 [facility] Comment on above: Order Comment: Speci men Type: BLOOD SPECIMENOrdering Facility: [facility] Address: [address] [place] [address] Performed By: #### 5 8410-2 ####[facility] LABCLIA [id number] [place] [address] [place] MCV (RBC) [Entitic vol] 100.7 fL High 80.0-100.0 [facility] Comment on above: Order Comment: Speci men Type: BLOOD SPECIMENOrdering Facility: [facility] Address: [address] [place] [address] Performed By: #### 5 8410-2 ####[facility] LABCLIA [id number] [place] [address] [place] Nucleated RBC (Bld) [#/Vol] 10*3/uL Normal <0.01 [facility] Comment on above: Order Comment: Speci men Type: BLOOD SPECIMENOrdering Facility: [facility] Address: [address] [place] [address] Performed By: #### 5 8410-2 ####[facility] LABIA [id number] [place] [address] [place] Platelet mean volume (Bld) [Entitic vol] 10.4 fL Normal 9.0-12.7 [facility] Comment on above: Order Comment: Speci men Type: BLOOD SPECIMENOrdering Facility: [facility] Address: [address] [place] [address] Performed By: #### 5 8410-2 ####[facility] LABCLIA [id number] [place] [address] [place] Platelets (Bld) [#/Vol] 169 10*3/uL Normal 150-400 [facility] Comment on above: Order Comment: Speci men Type: BLOOD SPECIMENOrdering Facility: [facility] Address: [address] [place] [address] Performed By: #### 5 8410-2 ####[facility] LABIA [id number] [place] [address] [place] RBC (Bld) [#/Vol] 2.80 10*6/uL Low 4.20-6.00 [facility] Comment on above: Order Comment: Speci men Type: BLOOD SPECIMENOrdering Facility: [facility] Address: [address] [place] [address] Performed By: #### 5 8410-2 ####[facility] LABIA [id number] [place] [address] [place] WBC (Bld) [#/Vol] 4.70 10*3/uL Normal 3.70-11.00 [facility] Comment on above: Order Comment: Speci men Type: BLOOD SPECIMENOrdering Facility: [facility] Address: [address] [place] [address] Performed By: #### 5 8410-2 ####[facility] LABIA [id number] [place] [address] [place] Magnesium SerPl-mCncon 05-13 Magnesium [Mass/Vol] 2.2 mg/dL Normal 1.7-2.3 [facility] Comment on above: Order Comment: Speci men Type: BLOOD SPECIMENOrdering Facility: [facility] Address: [address] [place] [address] Performed By: #### 1 9123-9, 61129-5 ####[facility] LABIA [id number] [place] [address] [place] PTT, ANTICOAGULANT THERAPYon 05-13-2024 aPTT Coag (PPP) [Time] 49.3 s High 23.0-32.4 [facility] Comment on above: Order Comment: Speci men Type: BLOOD SPECIMENOrdering Facility: [facility] Address: [address] [place] [address] Performed By: #### P TTAC ####[facility] LABCLIA [id number] [place] [address] [place] aPTT Coag (PPP) [Time] 62.2 s High 23.0-32.4 [facility] Comment on above: Order Comment: Speci men Type: BLOOD SPECIMENOrdering Facility: [facility] Address: [address] [place] [address] Performed By: #### P TTAC ####[facility] LABIA [id number] [place] [address] [place] aPTT Coag (PPP) [Time] 76.5 s High 23.0-32.4 [facility] Comment on above: Order Comment: Speci men Type: BLOOD SPECIMENOrdering Facility: [facility] Address: [address] [place] [address] Performed By: #### P TTAC ####[facility] LABIA [id number] [place] [address] [place] Renal function 2000 panelon 05-13-2024 Albumin [Mass/Vol] 3.4 g/dL Low 3.9-4.9 [facility] Comment on above: Order Comment: Speci men Type: BLOOD SPECIMENOrdering Facility: [facility] Address: [address] [place] [address] Performed By: #### 1 9123-9, 38236-7 ####[facility] LABIA [id number] [place] [address] [place] Anion gap [Moles/Vol] 12 mmol/L Normal 8-15 [facility] Comment on above: Order Comment: Speci men Type: BLOOD SPECIMENOrdering Facility: [facility] Address: [address] [place] [address] Performed By: #### 1 9123-9, 46082-3 ####[facility] LABCLIA [id number] [place] [address] [place] Calcium [Mass/Vol] 8.9 mg/dL Normal 8.5-10.2 [facility] Comment on above: Order Comment: Speci men Type: BLOOD SPECIMENOrdering Facility: [facility] Address: [address] [place] [address] Performed By: #### 1 9123-9, 70433-8 ####[facility] LABCLIA [id number] [place] [address] [place] Chloride [Moles/Vol] 104 mmol/L Normal 98-107 [facility] Comment on above: Order Comment: Speci men Type: BLOOD SPECIMENOrdering Facility: [facility] Address: [address] [place] [address] Performed By: #### 1 9123-9, ####[facility] LABCLIA [id number] [place] [address] [place] CO2 [Moles/Vol] 24 mmol/L Normal 22-30 [facility] Comment on above: Order Comment: Speci men Type: BLOOD SPECIMENOrdering Facility: [facility] Address: [address] [place] [address] Performed By: #### 1 9123-9, 25466-7 ####[facility] LABCLIA [id number] [place] [address] [place] Creatinine [Mass/Vol] 2.10 mg/dL High 0.73-1.22 [facility] Comment on above: Order Comment: Speci men Type: BLOOD SPECIMENOrdering Facility: [facility] Address: [address] [place] [address] Performed By: #### 1 9123-9, 61530-6 ####[facility] LABCLIA [id number] [place] [address] [place] Creatinine and Glomerular filtration rate.predicted panel (S/P/Bld) 31 mL/min/1.73m??? Low >=60 [facility] Comment on above: Order Comment: Dylan olvera Type: BLOOD SPECIMENOrdering Facility: [facility] Address: [address] [place] [address] Result Comment: Etta mated Glomerular Filtration Rate [...] actual GFR. Performed By: #### 1 9123-9, 15602-9 ####[facility] LABCLIA [id number] [place] [address] [place] Glucose [Mass/Vol] 105 mg/dL High 74-99 [facility] Comment on above: Order Comment: Dylan olvera Type: BLOOD SPECIMENOrdering Facility: [facility] Address: [address] [place] [address] Result Comment: The [place] [employer] (ADA) provides guidance for cutoff [...] Standards of Medical Care in Diabetes 2016, [place] [employer]. Diabetes Care. 2016.39(Suppl 1). Performed By: #### 1 9123-9, 73146-0 ####[facility] LABCLIA [id number] [place] [address] [place] Phosphate [Mass/Vol] 2.8 mg/dL Normal 2.7-4.8 [facility] Comment on above: Order Comment: Speci men Type: BLOOD SPECIMENOrdering Facility: [facility] Address: [address] [place] [address] Performed By: #### 1 9123-9, 26950-4 ####[facility] LABCLIA [id number] [place] [address] [place] Potassium [Moles/Vol] 3.8 mmol/L Normal 3.7-5.1 [facility] Comment on above: Order Comment: Speci men Type: BLOOD SPECIMENOrdering Facility: [facility] Address: [address] [place] [address] Performed By: #### 1 9123-9, 93391-9 ####[facility] LABCLIA [id number] [place] [address] [place] Sodium [Moles/Vol] 140 mmol/L Normal 136-144 [facility] Comment on above: Order Comment: Speci men Type: BLOOD SPECIMENOrdering Facility: [facility] Address: [address] [place] [address] Performed By: #### 1 9123-9, 60026-6 ####[facility] LABCLIA [id number] [place] [address] [place] Urea nitrogen [Mass/Vol] 26 mg/dL High 9-24 [facility] Comment on above: Order Comment: Speci men Type: BLOOD SPECIMENOrdering Facility: [facility] Address: [address] [place] [address] Performed By: #### 1 9123-9, 59854-6 ####[facility] LABCLIA [id number] [place] [address] [place] THERAPY NTon 05-13-2024 THERAPY NT Normal [facility] CBC panel Auto (Bld)on 05-12 Erythrocyte distribution width (RBC) [Ratio] 20.7 % High 11.5-15.0 [facility] Comment on above: Order Comment: Speci men Type: BLOOD SPECIMENOrdering Facility: [facility] Address: [address] [place] [address] Performed By: #### 5 8410-2 ####[facility] [id number] [place] [address] [place] Hematocrit (Bld) [Volume fraction] 28.1 % Low 39.0-51.0 [facility] Comment on above: Order Comment: Speci men Type: BLOOD SPECIMENOrdering Facility: [facility] Address: [address] [place] [address] Performed By: #### 5 8410-2 ####[facility] [id number] [place] [address] [place] Hemoglobin (Bld) [Mass/Vol] 8.0 g/dL Low 13.0-17.0 [facility] Comment on above: Order Comment: Speci men Type: BLOOD SPECIMENOrdering Facility: [facility] Address: [address] [place] [address] Performed By: #### 5 8410-2 ####[facility] LABIA [id number] [place] [address] [place] MCH (RBC) [Entitic mass] 29.3 pg Normal 26.0-34.0 [facility] Comment on above: Order Comment: Speci men Type: BLOOD SPECIMENOrdering Facility: [facility] Address: [address] [place] [address] Performed By: #### 5 8410-2 ####[facility] [id number] [place] [address] [place] MCHC (RBC) [Mass/Vol] 28.5 g/dL Low 30.5-36.0 [facility] Comment on above: Order Comment: Speci men Type: BLOOD SPECIMENOrdering Facility: [facility] Address: [address] [place] [address] Performed By: #### 5 8410-2 ####[facility] LABCLIA [id number] [place] [address] [place] MCV (RBC) [Entitic vol] 102.9 fL High 80.0-100.0 [facility] Comment on above: Order Comment: Speci men Type: BLOOD SPECIMENOrdering Facility: [facility] Address: [address] [place] [address] Performed By: #### 5 8410-2 ####[facility] LABIA [id number] [place] [address] [place] Nucleated RBC (Bld) [#/Vol] 10*3/uL Normal <0.01 [facility] Comment on above: Order Comment: Speci men Type: BLOOD SPECIMENOrdering Facility: [facility] Address: [address] [place] [address] Performed By: #### 5 8410-2 ####[facility] LABIA [id number] [place] [address] [place] Platelet mean volume (Bld) [Entitic vol] 10.6 fL Normal 9.0-12.7 [facility] Comment on above: Order Comment: Speci men Type: BLOOD SPECIMENOrdering Facility: [facility] Address: [address] [place] [address] Performed By: #### 5 8410-2 ####[facility] LABIA [id number] [place] [address] [place] Platelets (Bld) [#/Vol] 182 10*3/uL Normal 150-400 [facility] Comment on above: Order Comment: Speci men Type: BLOOD SPECIMENOrdering Facility: [facility] Address: [address] [place] [address] Performed By: #### 5 8410-2 ####[facility] LABIA [id number] [place] [address] [place] RBC (Bld) [#/Vol] 2.73 10*6/uL Low 4.20-6.00 [facility] Comment on above: Order Comment: Dylan olvera Type: BLOOD SPECIMENOrdering Facility: [facility] Address: [address] [place] [address] Performed By: #### 5 8410-2 ####[facility] LABCLIA [id number] [place] [address] [place] WBC (Bld) [#/Vol] 4.96 10*3/uL Normal 3.70-11.00 [facility] Comment on above: Order Comment: Rozi may Type: BLOOD SPECIMENOrdering Facility: [facility] Address: [address] [place] [address] Performed By: #### 5 8410-2 ####[facility] LABCLIA [id number] [place] [address] [place] PT panel Coag (PPP)on 2023 INR Coag (PPP) [Relative time] 1.3 {INR} Normal 0.9-1.3 [facility] Comment on above: Order Comment: Dylan olvera Type: BLOOD SPECIMENOrdering Facility: [facility] Address: [address] [place] [address] Result Comment: Loulou min K Antagonist (VKA) Therapeutic Range: INR 2 to 3 (Target INR of 2.5)Note: For patients treated with VKA drugs, such as warfarin, the [place] [employer] 2012 Guideline recommends [...] al. Chest 2012, 141:7S-47SNishimura RA, et al. [facility] 2017, 70: 252-289 Performed By: #### P TTAC, 02728-9 ####[facility] LABIA [id number] [place] [address] [place] PT Coag (PPP) [Time] 13.5 s High 9.7-13.0 [facility] Comment on above: Order Comment: Speci men Type: BLOOD SPECIMENOrdering Facility: [facility] Address: [address] [place] [address] Performed By: #### P TTAC, 94238-9 ####[facility] LABIA [id number] [place] [address] [place] PTT, ANTICOAGULANT THERAPYon 05-12-2024 aPTT Coag (PPP) [Time] 43.6 s High 23.0-32.4 [facility] Comment on above: Order Comment: Speci men Type: BLOOD SPECIMENOrdering Facility: [facility] Address: [address] [place] [address] Performed By: #### P TTAC ####[facility] [id number] [place] [address] [place] aPTT Coag (PPP) [Time] 106.6 s High 23.0-32.4 [facility] Comment on above: Order Comment: Speci men Type: BLOOD SPECIMENOrdering Facility: [facility] Address: [address] [place] [address] Performed By: #### P TTAC ####[facility] [id number] [place] [address] [place] aPTT Coag (PPP) [Time] 42.0 s High 23.0-32.4 [facility] Comment on above: Order Comment: Speci men Type: BLOOD SPECIMENOrdering Facility: [facility] Address: [address] [place] [address] Performed By: #### P TTAC, 29878-3 ####[facility] LABCLIA [id number] [place] [id number] [place] Renal function 2000 panelon 05-12-2024 Albumin [Mass/Vol] 3.2 g/dL Low 3.9-4.9 [facility] Comment on above: Order Comment: Speci men Type: BLOOD SPECIMENOrdering Facility: [facility] Address: [address] [place] [address] Performed By: #### 2 4362-6 ####[facility] LABCLIA [id number] [place] [address] [place] Anion gap [Moles/Vol] 10 mmol/L Normal 8-15 [facility] Comment on above: Order Comment: Speci men Type: BLOOD SPECIMENOrdering Facility: [facility] Address: [address] [place] [address] Performed By: #### 2 4362-6 ####[facility] LABCLIA [id number] [place] [address] [place] Calcium [Mass/Vol] 8.6 mg/dL Normal 8.5-10.2 [facility] Comment on above: Order Comment: Speci men Type: BLOOD SPECIMENOrdering Facility: [facility] Address: [address] [place] [address] Performed By: #### 2 4362-6 ####[facility] LABCLIA [id number] [place] [address] [place] Chloride [Moles/Vol] 106 mmol/L Normal 98-107 [facility] Comment on above: Order Comment: Speci men Type: BLOOD SPECIMENOrdering Facility: [facility] Address: [address] [place] [address] Performed By: #### 2 4362-6 ####[facility] LABCLIA [id number] [place] [address] [place] CO2 [Moles/Vol] 23 mmol/L Normal 22-30 [facility] Comment on above: Order Comment: Speci men Type: BLOOD SPECIMENOrdering Facility: [facility] Address: [address] [place] [address] Performed By: #### 2 4362-6 ####[facility] LABCLIA [id number] [place] [address] [place] Creatinine [Mass/Vol] 2.22 mg/dL High 0.73-1.22 [facility] Comment on above: Order Comment: Speci men Type: BLOOD SPECIMENOrdering Facility: [facility] Address: [address] [place] [address] Performed By: #### 2 4362-6 ####[facility] LABCLIA [id number] [place] [address] [place] Creatinine and Glomerular filtration rate.predicted panel (S/P/Bld) 29 mL/min/1.73m??? Low >=60 [facility] Comment on above: Order Comment: Speci men Type: BLOOD SPECIMENOrdering Facility: [facility] Address: [address] [place] [address] Result Comment: Etta mated Glomerular Filtration Rate [...] actual GFR. Performed By: #### 2 4362-6 ####[facility] LABIA [id number] [place] [address] [place] Glucose [Mass/Vol] 118 mg/dL High 74-99 [facility] Comment on above: Order Comment: Speci men Type: BLOOD SPECIMENOrdering Facility: [facility] Address: [address] [place] [address] Result Comment: The [place] [employer] (ADA) provides guidance for cutoff [...] Standards of Medical Care in Diabetes 2016, [place] [employer]. Diabetes Care. 2016.39(Suppl 1). Performed By: #### 2 4362-6 ####[facility] LABCLIA [id number] [place] [address] [place] Phosphate [Mass/Vol] 2.6 mg/dL Low 2.7-4.8 [facility] Comment on above: Order Comment: Speci men Type: BLOOD SPECIMENOrdering Facility: [facility] Address: [address] [place] [address] Performed By: #### 2 4362-6 ####[facility] LABIA [id number] [place] [address] [place] Potassium [Moles/Vol] 3.9 mmol/L Normal 3.7-5.1 [facility] Comment on above: Order Comment: Speci men Type: BLOOD SPECIMENOrdering Facility: [facility] Address: [address] [place] [address] Performed By: #### 2 4362-6 ####[facility] LABCLIA [id number] [place] [address] [place] Sodium [Moles/Vol] 139 mmol/L Normal 136-144 [facility] Comment on above: Order Comment: Speci men Type: BLOOD SPECIMENOrdering Facility: [facility] Address: [address] [place] [address] Performed By: #### 2 4362-6 ####[facility] LABCLIA [id number] [place] [address] [place] Urea nitrogen [Mass/Vol] 28 mg/dL High 9-24 [facility] Comment on above: Order Comment: Speci men Type: BLOOD SPECIMENOrdering Facility: [facility] Address: [address] [place] [address] Performed By: #### 2 4362-6 ####[facility] LABCLIA [id number] [place] [address] [place] THERAPY NTon 05-12-2024 THERAPY NT Normal [facility] CASE MGT INIT ASSESon 2023 CASE MGT INIT ASSES Normal [facility] CBC panel Auto (Bld)on 05-11 Erythrocyte distribution width (RBC) [Ratio] 20.9 % High 11.5-15.0 [facility] Comment on above: Order Comment: Speci men Type: BLOOD SPECIMENOrdering Facility: [facility] Address: [address] [place] [address] Performed By: #### 5 8410-2 ####[facility] LABCLIA [id number] [place] [address] [place] Hematocrit (Bld) [Volume fraction] 27.6 % Low 39.0-51.0 [facility] Comment on above: Order Comment: Speci men Type: BLOOD SPECIMENOrdering Facility: [facility] Address: [address] [place] [address] Performed By: #### 5 8410-2 ####[facility] LABCLIA [id number] [place] [address] [place] Hemoglobin (Bld) [Mass/Vol] 8.1 g/dL Low 13.0-17.0 [facility] Comment on above: Order Comment: Speci men Type: BLOOD SPECIMENOrdering Facility: [facility] Address: [address] [place] [address] Performed By: #### 5 8410-2 ####[facility] LABCLIA [id number] [place] [address] [place] MCH (RBC) [Entitic mass] 29.8 pg Normal 26.0-34.0 [facility] Comment on above: Order Comment: Speci men Type: BLOOD SPECIMENOrdering Facility: [facility] Address: [address] [place] [address] Performed By: #### 5 8410-2 ####[facility] LABIA [id number] [place] [address] [place] MCHC (RBC) [Mass/Vol] 29.3 g/dL Low 30.5-36.0 [facility] Comment on above: Order Comment: Speci men Type: BLOOD SPECIMENOrdering Facility: [facility] Address: [address] [place] [address] Performed By: #### 5 8410-2 ####[facility] LABIA [id number] [place] [address] [place] MCV (RBC) [Entitic vol] 101.5 fL High 80.0-100.0 [facility] Comment on above: Order Comment: Speci men Type: BLOOD SPECIMENOrdering Facility: [facility] Address: [address] [place] [address] Performed By: #### 5 8410-2 ####[facility] LABIA [id number] [place] [address] [place] Nucleated RBC (Bld) [#/Vol] 10*3/uL Normal <0.01 [facility] Comment on above: Order Comment: Speci men Type: BLOOD SPECIMENOrdering Facility: [facility] Address: [address] [place] [address] Performed By: #### 5 8410-2 ####[facility] LABIA [id number] [place] [address] [place] Platelet mean volume (Bld) [Entitic vol] 10.4 fL Normal 9.0-12.7 [facility] Comment on above: Order Comment: Speci men Type: BLOOD SPECIMENOrdering Facility: [facility] Address: [address] [place] [address] Performed By: #### 5 8410-2 ####[facility] LABCLIA [id number] [place] [address] [place] Platelets (Bld) [#/Vol] 182 10*3/uL Normal 150-400 [facility] Comment on above: Order Comment: Speci men Type: BLOOD SPECIMENOrdering Facility: [facility] Address: [address] [place] [address] Performed By: #### 5 8410-2 ####[facility] LABIA [id number] [place] [address] [place] RBC (Bld) [#/Vol] 2.72 10*6/uL Low 4.20-6.00 [facility] Comment on above: Order Comment: Speci men Type: BLOOD SPECIMENOrdering Facility: [facility] Address: [address] [place] [address] Performed By: #### 5 8410-2 ####[facility] LABIA [id number] [place] [address] [place] WBC (Bld) [#/Vol] 5.06 10*3/uL Normal 3.70-11.00 [facility] Comment on above: Order Comment: Speci men Type: BLOOD SPECIMENOrdering Facility: [facility] Address: [address] [place] [address] Performed By: #### 5 8410-2 ####[facility] LABIA [id number] [place] [id number] [place] NURSING PROGon 05-11-2024 NURSING PROG Normal [facility] PTT, ANTICOAGULANT THERAPYon 05-11-2024 aPTT Coag (PPP) [Time] 55.4 s High 23.0-32.4 [facility] Comment on above: Order Comment: Speci men Type: BLOOD SPECIMENOrdering Facility: [facility] Address: [address] [place] [address] Performed By: #### P TTAC ####[facility] LABCLIA [id number] [address] [address] [place] aPTT Coag (PPP) [Time] 61.4 s High 23.0-32.4 [facility] Comment on above: Order Comment: Speci men Type: BLOOD SPECIMENOrdering Facility: [facility] Address: [address] [place] [address] Performed By: #### P TTAC ####[facility] LABIA [id number] [address] [place] aPTT Coag (PPP) [Time] 65.2 s High 23.0-32.4 [facility] Comment on above: Order Comment: Speci men Type: BLOOD SPECIMENOrdering Facility: [facility] Address: [address] [place] [address] Performed By: #### P TTAC ####[facility] LABIA [id number] [place] [address] [place] Renal function 2000 panelon 05-11-2024 Albumin [Mass/Vol] 3.3 g/dL Low 3.9-4.9 [facility] Comment on above: Order Comment: Speci men Type: BLOOD SPECIMENOrdering Facility: [facility] Address: [address] [place] [address] Performed By: #### 2 4362-6 ####[facility] [id number] [place] [address] [place] Anion gap [Moles/Vol] 10 mmol/L Normal 8-15 [facility] Comment on above: Order Comment: Speci men Type: BLOOD SPECIMENOrdering Facility: [facility] Address: [address] [place] [address] Performed By: #### 2 4362-6 ####[facility] LABCLIA [id number] [place] [address] [place] Calcium [Mass/Vol] 8.3 mg/dL Low 8.5-10.2 [facility] Comment on above: Order Comment: Speci men Type: BLOOD SPECIMENOrdering Facility: [facility] Address: [address] [place] [address] Performed By: #### 2 4362-6 ####[facility] LABCLIA [id number] [facility] [place] [address] [place] Chloride [Moles/Vol] 106 mmol/L Normal 98-107 [facility] Comment on above: Order Comment: Speci men Type: BLOOD SPECIMENOrdering Facility: [facility] Address: [address] [place] [address] Performed By: #### 2 4362-6 ####[facility] LABCLIA [id number] [place] [address] [place] CO2 [Moles/Vol] 24 mmol/L Normal 22-30 [facility] Comment on above: Order Comment: Speci men Type: BLOOD SPECIMENOrdering Facility: [facility] Address: [address] [place] [address] Performed By: #### 2 4362-6 ####[facility] LABCLIA [id number] [place] [address] [place] Creatinine [Mass/Vol] 2.05 mg/dL High 0.73-1.22 [facility] Comment on above: Order Comment: Speci men Type: BLOOD SPECIMENOrdering Facility: [facility] Address: [address] [place] [address] Performed By: #### 2 4362-6 ####[facility] LABCLIA [id number] [place] [address] [place] Creatinine and Glomerular filtration rate.predicted panel (S/P/Bld) 32 mL/min/1.73m??? Low >=60 [facility] Comment on above: Order Comment: Dylan olvera Type: BLOOD SPECIMENOrdering Facility: [facility] Address: [address] [place] [address] Result Comment: Etta mated Glomerular Filtration Rate [...] actual GFR. Performed By: #### 2 4362-6 ####[facility] [id number] [place] [address] [place] Glucose [Mass/Vol] 103 mg/dL High 74-99 [facility] Comment on above: Order Comment: Dylan olvera Type: BLOOD SPECIMENOrdering Facility: [facility] Address: [address] [place] [address] Result Comment: The [place] Diabetes Association (ADA) provides guidance for cutoff [...] Standards of Medical Care in Diabetes 2016, [place] [employer]. Diabetes Care. 2016.39(Suppl 1). Performed By: #### 2 4362-6 ####[facility] [id number] [place] [address] [place] Phosphate [Mass/Vol] 2.3 mg/dL Low 2.7-4.8 [facility] Comment on above: Order Comment: Dylan olvera Type: BLOOD SPECIMENOrdering Facility: [facility] Address: [address] [place] [address] Performed By: #### 2 4362-6 ####[facility] LABCLIA [id number] [place] [address] [place] Potassium [Moles/Vol] 3.8 mmol/L Normal 3.7-5.1 [facility] Comment on above: Order Comment: Speci men Type: BLOOD SPECIMENOrdering Facility: [facility] Address: [address] [place] [address] Performed By: #### 2 4362-6 ####[facility] LABCLIA [id number] [place] [address] [place] Sodium [Moles/Vol] 140 mmol/L Normal 136-144 [facility] Comment on above: Order Comment: Speci men Type: BLOOD SPECIMENOrdering Facility: [facility] Address: [address] [place] [address] Performed By: #### 2 4362-6 ####[facility] LABCLIA [id number] [place] [address] [place] Urea nitrogen [Mass/Vol] 30 mg/dL High 9-24 [facility] Comment on above: Order Comment: Speci men Type: BLOOD SPECIMENOrdering Facility: [facility] Address: [address] [place] [address] Performed By: #### 2 4362-6 ####[facility] LABCLIA [id number] [place] [id number] [place] THERAPY NTon 05-11-2024 THERAPY NT Normal [facility] THERAPY NT Normal [facility] CBC panel Auto (Bld)on 05-10 Erythrocyte distribution width (RBC) [Ratio] 21.3 % High 11.5-15.0 [facility] Comment on above: Order Comment: Speci men Type: BLOOD SPECIMENOrdering Facility: [facility] Address: [address] [place] [address] Performed By: #### 5 8410-2 ####[facility] LABIA [id number] [place] [address] [place] Hematocrit (Bld) [Volume fraction] 29.8 % Low 39.0-51.0 [facility] Comment on above: Order Comment: Speci men Type: BLOOD SPECIMENOrdering Facility: [facility] Address: [address] [place] [address] Performed By: #### 5 8410-2 ####[facility] [id number] [place] [address] [place] Hemoglobin (Bld) [Mass/Vol] 8.6 g/dL Low 13.0-17.0 [facility] Comment on above: Order Comment: Speci men Type: BLOOD SPECIMENOrdering Facility: [facility] Address: [address] [place] [address] Performed By: #### 5 8410-2 ####[facility] [id number] [place] [address] [place] MCH (RBC) [Entitic mass] 30.0 pg Normal 26.0-34.0 [facility] Comment on above: Order Comment: Speci men Type: BLOOD SPECIMENOrdering Facility: [facility] Address: [address] [place] [address] Performed By: #### 5 8410-2 ####[facility] LABIA [id number] [place] [address] [place] MCHC (RBC) [Mass/Vol] 28.9 g/dL Low 30.5-36.0 [facility] Comment on above: Order Comment: Speci men Type: BLOOD SPECIMENOrdering Facility: [facility] Address: [address] [place] [address] Performed By: #### 5 8410-2 ####[facility] [id number] [address] [place] [address] [place] MCV (RBC) [Entitic vol] 103.8 fL High 80.0-100.0 [facility] Comment on above: Order Comment: Speci men Type: BLOOD SPECIMENOrdering Facility: [facility] Address: [address] [place] [address] Performed By: #### 5 8410-2 ####[facility] LABCLIA [id number] [place] [address] [place] Nucleated RBC (Bld) [#/Vol] 0.02 10*3/uL High <0.01 [facility] Comment on above: Order Comment: Speci men Type: BLOOD SPECIMENOrdering Facility: [facility] Address: [address] [place] [address] Performed By: #### 5 8410-2 ####[facility] LABCLIA [id number] [place] [address] [place] Platelet mean volume (Bld) [Entitic vol] 10.6 fL Normal 9.0-12.7 [facility] Comment on above: Order Comment: Speci men Type: BLOOD SPECIMENOrdering Facility: [facility] Address: [address] [place] [address] Performed By: #### 5 8410-2 ####[facility] LABCLIA [id number] [place] [address] [place] Platelets (Bld) [#/Vol] 188 10*3/uL Normal 150-400 [facility] Comment on above: Order Comment: Speci men Type: BLOOD SPECIMENOrdering Facility: [facility] Address: [address] [place] [address] Performed By: #### 5 8410-2 ####[facility] LABCLIA [id number] [place] [address] [place] RBC (Bld) [#/Vol] 2.87 10*6/uL Low 4.20-6.00 [facility] Comment on above: Order Comment: Speci men Type: BLOOD SPECIMENOrdering Facility: [facility] Address: [address] [place] [address] Performed By: #### 5 8410-2 ####[facility] LABIA [id number] [place] [address] [place] WBC (Bld) [#/Vol] 4.87 10*3/uL Normal 3.70-11.00 [facility] Comment on above: Order Comment: Speci men Type: BLOOD SPECIMENOrdering Facility: [facility] Address: [address] [place] [address] Performed By: #### 5 8410-2 ####[facility] LABIA [id number] [place] [address] [place] NURSING PROGon 05-10-2024 NURSING PROG Normal [facility] PTT, ANTICOAGULANT THERAPYon 05-10-2024 aPTT Coag (PPP) [Time] 64.0 s High 23.0-32.4 [facility] Comment on above: Order Comment: Speci men Type: BLOOD SPECIMENOrdering Facility: [facility] Address: [address] [place] [address] Performed By: #### P TTAC ####[facility] LABIA [id number] [place] [address] [place] aPTT Coag (PPP) [Time] 46.0 s High 23.0-32.4 [facility] Comment on above: Order Comment: Speci men Type: BLOOD SPECIMENOrdering Facility: [facility] Address: [address] [place] [address] Performed By: #### P TTAC ####[facility] LABIA [id number] [place] [address] [place] aPTT Coag (PPP) [Time] 87.4 s High 23.0-32.4 [facility] Comment on above: Order Comment: Speci men Type: BLOOD SPECIMENOrdering Facility: [facility] Address: [address] [place] [address] Performed By: #### P TTAC ####[facility] LABCLIA [id number] [place] [address] [place] TYPE + SCREENon 05-10-2024 ABO O Normal [facility] Comment on above: Order Comment: Speci men Type: BLOOD SPECIMENOrdering Facility: [facility] Address: [address] [place] [address] Performed By: #### T SCR ####CC [facility] BLOOD BANKCLIA [id number] [place] [address] [place] HISTORICAL AB SCR STATUS Negative Normal [facility] Comment on above: Order Comment: Speci men Type: BLOOD SPECIMENOrdering Facility: [facility] Address: [address] [place] [address] Performed By: #### T SCR ####CC [facility] BLOOD BANKCLIA [id number] [place] [address] [place] Rh Nom (Bld) Positive Normal [facility] Comment on above: Order Comment: Speci men Type: BLOOD SPECIMENOrdering Facility: [facility] Address: [address] [place] [address] Performed By: #### T SCR ####CC [facility] BLOOD BANKCLIA [id number] [place] [address] [place] TYPE AND SCREEN EXPIRATION 05/13/2024 23:59 Normal [facility] Comment on above: Order Comment: Speci men Type: BLOOD SPECIMENOrdering Facility: [facility] Address: [address] [place] [address] Performed By: #### T SCR ####CC MAIN BLOOD BANKCLIA [id number] [place] [id number] [place] Basic metabolic 2000 panelon 05-09-2024 Anion gap [Moles/Vol] 10 mmol/L Normal 8-15 [facility] Comment on above: Order Comment: Speci men Type: BLOOD SPECIMEN [facility] Address: [address] [place] [address] Performed By: #### 3 4528-0, PTTAC #### [facility] CLIA [id number] [place] [address] [place] Calcium [Mass/Vol] 8.6 mg/dL Normal 8.5-10.2 [facility] Comment on above: Order Comment: Speci men Type: BLOOD SPECIMEN [facility] Address: [address] [place] [address] Performed By: #### 3 4528-0, PTTAC #### [facility] CLIA [id number] [place] [address] [place] Chloride [Moles/Vol] 105 mmol/L Normal 98-107 [facility] Comment on above: Order Comment: Speci men Type: BLOOD SPECIMEN [facility] Address: [address] [place] [address] Performed By: #### 3 4528-0, PTTAC #### [facility] CLIA [id number] [address] [place] [address] [place] CO2 [Moles/Vol] 24 mmol/L Normal 22-30 [facility] Comment on above: Order Comment: Speci men Type: BLOOD SPECIMEN [facility] Address: [address] [place] [address] Performed By: #### 3 4528-0, PTTAC #### [facility] CLIA [id number] [address] [place] [address] [place] Creatinine [Mass/Vol] 1.96 mg/dL High 0.73-1.22 [facility] Comment on above: Order Comment: Speci men Type: BLOOD SPECIMEN [facility] Address: [address] [place] [address] Performed By: #### 3 4528-0, PTTAC #### [facility] CLIA [id number] [address] [place] [address] [place] Creatinine and Glomerular filtration rate.predicted panel (S/P/Bld) 34 mL/min/1.73m??? Low >=60 [facility] Comment on above: Order Comment: Dylan olvera Type: BLOOD SPECIMEN [facility] Address: [address] [place] [address] Result Comment: Etta mated Glomerular Filtration Rate [...] Performed By: #### 3 4528-0, PTTAC #### [facility] CLIA [id number] [facility] [address] [place] Glucose [Mass/Vol] 114 mg/dL High 74-99 [facility] Comment on above: Order Comment: Dylan olvera Type: BLOOD SPECIMEN [facility] Address: [address] [place] [address] Result Comment: The [place] Diabetes Association (ADA) provides guidance for cutoff [...] Standards of Medical Care in Diabetes 2016, [place] Diabetes [employer]. Diabetes Care. 2016.39(Suppl 1). Performed By: #### 3 4528-0, PTTAC #### [facility] CLIA [id number] [address] [facility] [address] [place] Potassium [Moles/Vol] 4.1 mmol/L Normal 3.7-5.1 [facility] Comment on above: Order Comment: Dylan olvera Type: BLOOD SPECIMEN [facility] Address: [address] [place] [address] Performed By: #### 3 4528-0, PTTAC #### [facility] [place] [id number] [address] [place] [address] [place] Sodium [Moles/Vol] 139 mmol/L Normal 136-144 [facility] Comment on above: Order Comment: Speci men Type: BLOOD SPECIMEN [facility] Address: [address] [place] [address] Performed By: #### 3 4528-0, PTTAC #### [facility] IA [id number] [place] [address] [place] Urea nitrogen [Mass/Vol] 36 mg/dL High 06-09 [facility] Comment on above: Order Comment: Speci men Type: BLOOD SPECIMEN [facility] Address: [address] [place] [address] Performed By: #### 3 4528-0, PTTAC #### [facility] IA [id number] [address] [place] [address] [place] CBC panel Auto (Bld)on 05-09 Erythrocyte distribution width (RBC) [Ratio] 21.8 % High 11.5-15.0 [facility] Comment on above: Order Comment: Speci men Type: BLOOD SPECIMENOrdering Facility: [facility] Address: [address] [place] [address] Performed By: #### 5 8410-2 ####[facility] LABIA [id number] [place] [address] [place] Hematocrit (Bld) [Volume fraction] 28.0 % Low 39.0-51.0 [facility] Comment on above: Order Comment: Speci men Type: BLOOD SPECIMENOrdering Facility: [facility] Address: [address] [place] [address] Performed By: #### 5 8410-2 ####[facility] LABCLIA [id number] [place] [address] [place] Hemoglobin (Bld) [Mass/Vol] 8.3 g/dL Low 13.0-17.0 [facility] Comment on above: Order Comment: Speci men Type: BLOOD SPECIMENOrdering Facility: [facility] Address: [address] [place] [address] Performed By: #### 5 8410-2 ####[facility] LABIA [id number] [place] [address] [place] MCH (RBC) [Entitic mass] 30.3 pg Normal 26.0-34.0 [facility] Comment on above: Order Comment: Speci men Type: BLOOD SPECIMENOrdering Facility: [facility] Address: [address] [place] [address] Performed By: #### 5 8410-2 ####[facility] LABIA [id number] [place] [address] [place] MCHC (RBC) [Mass/Vol] 29.6 g/dL Low 30.5-36.0 [facility] Comment on above: Order Comment: Speci men Type: BLOOD SPECIMENOrdering Facility: [facility] Address: [address] [place] [address] Performed By: #### 5 8410-2 ####[facility] LABIA [id number] [place] [address] [place] MCV (RBC) [Entitic vol] 102.2 fL High 80.0-100.0 [facility] Comment on above: Order Comment: Speci men Type: BLOOD SPECIMENOrdering Facility: [facility] Address: [address] [place] [address] Performed By: #### 5 8410-2 ####[facility] LABIA [id number] [place] [address] [place] Nucleated RBC (Bld) [#/Vol] 10*3/uL Normal <0.01 [facility] Comment on above: Order Comment: Speci men Type: BLOOD SPECIMENOrdering Facility: [facility] Address: [address] [place] [address] Performed By: #### 5 8410-2 ####[facility] LABIA [id number] [place] [address] [place] Platelet mean volume (Bld) [Entitic vol] 10.1 fL Normal 9.0-12.7 [facility] Comment on above: Order Comment: Speci men Type: BLOOD SPECIMENOrdering Facility: [facility] Address: [address] [place] [address] Performed By: #### 5 8410-2 ####[facility] LABIA [id number] [place] [address] [place] Platelets (Bld) [#/Vol] 170 10*3/uL Normal 150-400 [facility] Comment on above: Order Comment: Speci men Type: BLOOD SPECIMENOrdering Facility: [facility] Address: [address] [place] [address] Performed By: #### 5 8410-2 ####[facility] LABIA [id number] [place] [address] [place] RBC (Bld) [#/Vol] 2.74 10*6/uL Low 4.20-6.00 [facility] Comment on above: Order Comment: Speci men Type: BLOOD SPECIMENOrdering Facility: [facility] Address: [address] [place] [address] Performed By: #### 5 8410-2 ####[facility] LABIA [id number] [place] [address] [place] WBC (Bld) [#/Vol] 5.04 10*3/uL Normal 3.70-11.00 [facility] Comment on above: Order Comment: Speci men Type: BLOOD SPECIMENOrdering Facility: [facility] Address: [address] [place] [address] Performed By: #### 5 8410-2 ####[facility] LABCLIA [id number] LACHELLEKurtis [facility] [id number] [address] [place] Erythrocyte distribution width (RBC) [Ratio] 21.8 % High 11.5-15.0 [facility] Comment on above: Order Comment: Speci men Type: BLOOD SPECIMEN [facility] Address: [address] [place] [address] Performed By: #### 5 8410-2 #### [facility] CLIA [id number] [address] [place] [address] [place] Hematocrit (Bld) [Volume fraction] 27.6 % Low 39.0-51.0 [facility] Comment on above: Order Comment: Speci men Type: BLOOD SPECIMEN [facility] Address: [address] [place] [address] Performed By: #### 5 8410-2 #### [facility] IA [id number] [address] [place] [address] [place] Hemoglobin (Bld) [Mass/Vol] 8.2 g/dL Low 13.0-17.0 [facility] Comment on above: Order Comment: Speci men Type: BLOOD SPECIMEN [facility] Address: [address] [place] [address] Performed By: #### 5 8410-2 #### [facility] IA [id number] [place] [address] [place] MCH (RBC) [Entitic mass] 30.5 pg Normal 26.0-34.0 [facility] Comment on above: Order Comment: Speci men Type: BLOOD SPECIMEN [facility] Address: [address] [place] [address] Performed By: #### 5 8410-2 #### [facility] IA [id number] [address] [place] [address] [place] MCHC (RBC) [Mass/Vol] 29.7 g/dL Low 30.5-36.0 [facility] Comment on above: Order Comment: Speci men Type: BLOOD SPECIMEN [facility] Address: [address] [place] [address] Performed By: #### 5 8410-2 #### [facility] CLIA [id number] [address] [place] [address] [place] MCV (RBC) [Entitic vol] 102.6 fL High 80.0-100.0 [facility] Comment on above: Order Comment: Speci men Type: BLOOD SPECIMEN [facility] Address: [address] [place] [address] Performed By: #### 5 8410-2 #### [facility] CLIA [id number] [address] [place] [address] [place] Nucleated RBC (Bld) [#/Vol] 0.02 10*3/uL High <0.01 [facility] Comment on above: Order Comment: Speci men Type: BLOOD SPECIMEN [facility] Address: [address] [place] [address] Performed By: #### 5 8410-2 #### [facility] CLIA [id number] [address] [place] [address] [place] Platelet mean volume (Bld) [Entitic vol] 10.5 fL Normal 9.0-12.7 [facility] Comment on above: Order Comment: Speci men Type: BLOOD SPECIMEN [facility] Address: [address] [place] [address] Performed By: #### 5 8410-2 #### [facility] CLIA [id number] [place] [address] [place] Platelets (Bld) [#/Vol] 174 10*3/uL Normal 150-400 [facility] Comment on above: Order Comment: Speci men Type: BLOOD SPECIMEN [facility] Address: [address] [place] [address] Performed By: #### 5 8410-2 #### [facility] CLIA [id number] [place] [address] [facility] RBC (Bld) [#/Vol] 2.69 10*6/uL Low 4.20-6.00 [facility] Comment on above: Order Comment: Dylan olvera Type: BLOOD SPECIMEN [facility] Address: [address] [place] [address] Performed By: #### 5 8410-2 #### [facility] CLIA [id number] [id number] [place] [address] [facility] WBC (Bld) [#/Vol] 5.62 10*3/uL Normal 3.70-11.00 [facility] Comment on above: Order Comment: Rozi may Type: BLOOD SPECIMEN [facility] Address: [address] [place] [address] Performed By: #### 5 8410-2 #### [facility] CLIA [id number] [place] [id number] [facility] CNDSon 05-09-2024 CNDS HNO ID: [id number] Author: CHERYL LEES MD Service: Hospital Medicine [...] graft) (POA: Yes) Coronary artery disease involving [place] coronary artery of [place] heart without angina pectoris (POA: Yes) Chronic systolic CHF (congestive heart failure) (HCC) (POA: Yes) Severe mitral regurgitation (POA: Yes) Atrial fibrillation (HCC) (POA: Yes) LV (left ventricular) mural thrombus (POA: Yes) Hyperlipidemia (POA: Yes) 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 kidney disease, unspecified CKD stage, unspecified whether technician terminal and repeater insulin use (HCC) (POA: Yes) Stage 3b [...] weakness and SANTILLAN. Pt had repeat [employer] COMPLI[employer] and brought to ER due to [...] ED, VSS. Hb 8.8, baseline 11-12. ProBNP 12312 .CXR: left pleural effusions (new compares to 02/2024). Pt has crimson colored stool that is guaiac positive. Pt was evaluated by GI and cardiology while admitted. Asa and xarelto were on hold and pt was started on hepatin gtt. H/H remained stable. Initial plan was EGD/colonoscopy on Saturday. 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 [facility] CONSULT Umer 05-09-2024 CONSULT PROG HNO ID: [id number] Author: JOSÉ MIGUEL WHEELER PA-C Service: Cardiovascular Medicine Author Type: Physician Soap Chipper Type: Consult Progress Note Filed: 05/09/2024 10:56 Note Text: [facility] CARDIOVASCULAR MEDICINE PROGRESS NOTE (Template ID [id number]) SERVICE DATE: 05/09/2024 SERVICE TIME: 0900 PRIMARY [...] systolic function is moderately decreased. - Percutaneous zmsa-qp-[id number] repair of the mitral valve with 1 [...] -- 05/06/24 2130 activity - mobilize patient (co,hi) VTE Prophylaxis: VTE prophylaxis appropriate ASSESSMENT AND [...] De Los Santos Agree with transfer to [facility] for further evaluation and care José Miguel Wheeler PA-C Cardiology consults SIGNATURE: José Miguel Wheeler PA-C PATIENT NAME: José Miguel Antonio Jr. DATE: May 09, 2024 TIME: 9:15 AM For communication after 5 pm on weekdays and after 12 pm on weekends, please page the following: - Clinical Cardiology patients on all floors: page [phone] - All other patients: after hours RYLIE page [phone] - For any urgent or emerge (more content not included)... Normal [facility] Comprehensive metabolic 2000 panelon 05-09-2024 Albumin [Mass/Vol] 3.4 g/dL Low 3.9-4.9 [facility] Comment on above: Order Comment: Speci men Type: BLOOD SPECIMENOrdering Facility: [facility] Address: [address] [place] [address] Performed By: #### 2 4323-8, 40632-1, 45781-2, 3016-3 ####[facility] [id number] [place] [address] [place] ALP [Catalytic activity/Vol] 88 U/L Normal 38-113 [facility] Comment on above: Order Comment: Speci men Type: BLOOD SPECIMENOrdering Facility: [facility] Address: [address] [place] [address] Performed By: #### 2 4323-8, 36939-8, 51689-4, 3016-3 ####[facility] LABIA [id number] [place] [address] [place] ALT [Catalytic activity/Vol] 11 U/L Normal 10-54 [facility] Comment on above: Order Comment: Speci men Type: BLOOD SPECIMENOrdering Facility: [facility] Address: [address] [place] [address] Performed By: #### 2 4323-8, 97477-8, 37754-0, 3016-3 ####[facility] LABCLIA [id number] [address] [address] [place] Anion gap [Moles/Vol] 10 mmol/L Normal 8-15 [facility] Comment on above: Order Comment: Speci men Type: BLOOD SPECIMENOrdering Facility: [facility] Address: [address] [place], [place] [address] Performed By: #### 2 4323-8, 37294-3, 58591-3, 3016-3 ####[facility] LABCLIA [id number] [address] [address] [place] AST [Catalytic activity/Vol] 17 U/L Normal 14-40 [facility] Comment on above: Order Comment: Speci men Type: BLOOD SPECIMENOrdering Facility: [facility] Address: [address] [place], [place] [address] Performed By: #### 2 4323-8, 52672-8, 20999-2, 3016-3 ####[facility] LABCLIA [id number] [address] [address] [place] Bilirubin [Mass/Vol] 0.7 mg/dL Normal 0.2-1.3 [facility] Comment on above: Order Comment: Speci men Type: BLOOD SPECIMENOrdering Facility: [facility] Address: [address] [place] [address] Performed By: #### 2 4323-8, 45343-7, 46082-8, 3016-3 ####[facility] LABCLIA [id number] [address] [address] [place] Calcium [Mass/Vol] 8.9 mg/dL Normal 8.5-10.2 [facility] Comment on above: Order Comment: Speci men Type: BLOOD SPECIMENOrdering Facility: [facility] Address: [address] [place] [address] Performed By: #### 2 4323-8, 09203-7, 34082-3, 3016-3 ####[facility] LABCLIA [id number] [place] [address] [place] Chloride [Moles/Vol] 106 mmol/L Normal 98-107 [facility] Comment on above: Order Comment: Speci men Type: BLOOD SPECIMENOrdering Facility: [facility] Address: [address] [place] [address] Performed By: #### 2 4323-8, 51396-8, 74177-5, 3016-3 ####[facility] LABCLIA [id number] [place] [address] [place] CO2 [Moles/Vol] 23 mmol/L Normal 22-30 [facility] Comment on above: Order Comment: Speci men Type: BLOOD SPECIMENOrdering Facility: [facility] Address: [address] [place] [address] Performed By: #### 2 4323-8, 68626-8, 29570-6, 3016-3 ####[facility] LABCLIA [id number] [place] [address] [place] Creatinine [Mass/Vol] 2.02 mg/dL High 0.73-1.22 [facility] Comment on above: Order Comment: Speci men Type: BLOOD SPECIMENOrdering Facility: [facility] Address: [address] [place] [address] Performed By: #### 2 4323-8, 12251-4, 47087-1, 3016-3 ####[facility] LABCLIA [id number] [place] [address] [place] Creatinine and Glomerular filtration rate.predicted panel (S/P/Bld) 32 mL/min/1.73m??? Low >=60 [facility] Comment on above: Order Comment: Speci men Type: BLOOD SPECIMENOrdering Facility: [facility] Address: [address] [place] [address] Result Comment: Etta mated Glomerular Filtration Rate [...] actual GFR. Performed By: #### 2 4323-8, 10584-5, 29685-6, 6-3 ####[facility] LABIA [id number] [address] [address] [place] Glucose [Mass/Vol] 96 mg/dL Normal 74-99 [facility] Comment on above: Order Comment: Dylan olvera Type: BLOOD SPECIMENOrdering Facility: [facility] Address: [address] [place] [address] Result Comment: The [place] Diabetes Association (ADA) provides guidance for cutoff [...] Standards of Medical Care in Diabetes 2016, [place] Diabetes Association. Diabetes Care. 2016.39(Suppl 1). Performed By: #### 2 4323-8, 18621-0, 95149-1, 6-3 ####[facility] LABIA [id number] [address] [address] [place] Potassium [Moles/Vol] 4.3 mmol/L Normal 3.7-5.1 [facility] Comment on above: Order Comment: Dylan men Type: BLOOD SPECIMENOrdering Facility: [facility] Address: [address] [place] [address] Performed By: #### 2 4323-8, 95581-1, 81791-5, 3016-3 ####[facility] LABIA [id number] [place] [address] [place] Protein [Mass/Vol] 6.0 g/dL Low 6.3-8.0 [facility] Comment on above: Order Comment: Speci men Type: BLOOD SPECIMENOrdering Facility: [facility] Address: [address] [place] [address] Performed By: #### 2 4323-8, 79383-1, 60933-5, 6-3 ####[facility] [id number] [place] [address] [place] Sodium [Moles/Vol] 139 mmol/L Normal 136-144 [facility] Comment on above: Order Comment: Speci men Type: BLOOD SPECIMENOrdering Facility: [facility] Address: [address] [place] [address] Performed By: #### 2 4323-8, 54670-4, 64793-3, 6-3 ####[facility] [id number] [place] [address] [place] Urea nitrogen [Mass/Vol] 35 mg/dL High 9-24 [facility] Comment on above: Order Comment: Speci men Type: BLOOD SPECIMENOrdering Facility: [facility] Address: [address] [place] [address] Performed By: #### 2 4323-8, 90083-8, 87925-3, 3016-3 ####[facility] [id number] [place] [address] [place] ECG COMPLETEon 05-09-2024 ECG COMPLETE Normal [facility] EKGon 05-09-2024 Electrocardiogram Ventricular Rate : 8 5 BPM Atrial Rate : 85 BPM P-R Interval : 181 ms QRS Duration : 123 ms Q-T Interval : 413 ms QTC Calculation(Bazett) : 492 ms Calculated P Horn[place] : 78 degrees Calculated R [place] : -6 degrees Calculated T Horn[place] : 135 degrees Sinus rhythm Multiform ventricular premature complexes Left bundle branch block Abnormal ECG Confirmed by SHERIE OSBORNE M.D. ([id number]) on 05/11/2024 3:03:05 PM NAME : JOSÉ MIGUEL ANTONIO PID : [id number] : 1940 Gender : Male Race : [...] Referred By : , Acquired by : [id number], [facility] Electrocardiogram Ventricular Rate : 8 5 BPM Atrial Rate : 85 BPM P-R Interval : 180 ms QRS Duration : 123 ms Q-T Interval : 406 ms QTC Calculation(Bazett) : 483 ms Calculated P Horn[place] : 69 degrees Calculated R [place] : -7 degrees Calculated T Horn[place] : 145 degrees Sinus rhythm Ventricular premature complex Left bundle branch block Abnormal ECG Confirmed by SHERIE OSBORNE M.D. ([id number]) on 05/11/2024 3:03:15 PM NAME : JOSÉ MIGUEL ANTONIO PID : [id number] : 1940 Gender : Male Race : [...] Referred By : , Acquired by : [id number], [facility] HIGH SENSITIVITY TROPONIN To n 05-09-2024 Troponin T.cardiac High sensitivity method [Mass/Vol] 38 ng/L High <12 [facility] Comment on above: Order Comment: Speci men Type: BLOOD SPECIMENOrdering Facility: [facility] Address: [address] [place], [place] [address] Performed By: #### H STNT, 00414-9 ####[facility] LABIA [id number] [place] [address] [place] HISTORY PHYSICALon HISTORY PHYSICAL Normal [facility] HbA1c (Bld)on 05-09-2024 Average glucose Estimated from glycated hemoglobin (Bld) [Mass/Vol] 82 mg/dL Normal [facility] Comment on above: Order Comment: Speci men Type: BLOOD SPECIMENOrdering Facility: [facility] Address: [address] [place] [address] Result Comment: eAG: (Estimated average glucose) is a calculated value from HgbA1c and is telemarketing representative of the average blood glucose level in the last 2-3 month period. Performed By: #### 5 5454-3 ####[facility] [id number] [place] [address] [place] HbA1c (Bld) [Mass fraction] 4.5 % Normal 4.3-5.6 [facility] Comment on above: Order Comment: Dylan olvera Type: BLOOD SPECIMENOrdering Facility: [facility] Address: [address] [place] [address] Result Comment: Amer [place] Diabetes Association guidelines indicate that patients with HgbA1c in the range 5.7-6.4% are at increased risk for development of diabetes, and intervention by lifestyle modification may be beneficial. HgbA1c greater or equal to 6.5% is considered diagnostic of diabetes. Performed By: #### 5 5454-3 ####[facility] LABIA [id number] [place] [address] [place] Iron and Iron binding capaci ty panelon 05-09-2024 Iron [Mass/Vol] 66 ug/dL Normal 41-186 [facility] Comment on above: Order Comment: Dylan men Type: BLOOD SPECIMENOrdering Facility: [facility] Address: [address] [place] [address] Performed By: #### 2 4323-8, 73151-9, , 3 ####[facility] LABCLIA [id number] [address] [address] [place] Iron binding capacity [Mass/Vol] 250 ug/dL Normal 232-386 [facility] Comment on above: Order Comment: Speci men Type: BLOOD SPECIMENOrdering Facility: [facility] Address: [address] [place] [address] Performed By: #### 2 4323-8, 32898-0, , 3015-3 ####[facility] LABIA [id number] [address] [address] [place] Iron/TIBC [Molar ratio] 26.4 % Normal 15.0-57.0 [facility] Comment on above: Order Comment: Speci men Type: BLOOD SPECIMENOrdering Facility: [facility] Address: [address] [place] [address] Performed By: #### 2 4323-8, 11521-4, , 3 ####[facility] LABIA [id number] [place] [address] [place] Magnesium SerPl-mCncon 05-09 Magnesium [Mass/Vol] 2.6 mg/dL High 1.7-2.3 [facility] Comment on above: Order Comment: Speci men Type: BLOOD SPECIMENOrdering Facility: [facility] Address: [address] [place], [place] [address] Performed By: #### 2 4323-8, 27217-8, , 3015-3 ####[facility] LABIA [id number] [place] [id number] [place] Magnesium [Mass/Vol] 2.4 mg/dL High 1.7-2.3 [facility] Comment on above: Order Comment: Speci men Type: BLOOD SPECIMEN [facility] Address: [address] [place] [address] Performed By: #### 3 4528-0, PTTAC #### [facility] CLIA [id number] [place] [address] [place] [facility] Natriuretic peptide.B prohormone N-Terminal [Mass/Vol] 53662 pg/mL High <450 [facility] Comment on above: Order Comment: Speci men Type: BLOOD SPECIMENOrdering Facility: [facility] Address: [address] [place] [address] Performed By: #### H STNT, 43061-2 ####[facility] LABCLIA [id number] [facility] [place] [address] [place] NURSING PROGon 05-09-2024 NURSING PROG Normal [facility] NURSING PROG HNO ID: [id number] Author: BO ZHAO RN Service: Nursing Author Type: Registered Nurse Type: Nursing Progress Note Filed: 05/09/2024 13:26 Note Text: Patient accepted at [facility]: G81, Bed 15 11:00 - Clinical hand off report given to receiving RNMorena @ . Receiving RN and patient aware that patient will be transported with the Heparin drip. Next lab draw to occur at 12:00, (prior to or after arrival dependent upon timing of transport). 12:30 - Scheduled Heparin draw completed at [place]. APPTT @ 72.4. Dose changed per Nomogram. Next scheduled lab draw @ 18:00. Receiving RN at [facility] and patient are aware. Patient requesting daily lasix dose be given after arrival to [facility]. Receiving RN aware. Patient is aware of, has actively participated in, and is in agreement with treatment plan of care. 13:25 - Patient transferred to [facility] Via [facility] ACLS transport in stable condition BP 100/61 Pulse 77 Temp 36.5 ?C (97.7 ?F) (Oral) Resp 18 Ht 182.9 cm (6') Wt 81.1 kg (178 lb 12.7 oz) SpO2 98% BMI 24.25 kg/m? Normal [facility] PT panel Coag (PPP)on 2023 INR Coag (PPP) [Relative time] 1.3 {INR} Normal 0.9-1.3 [facility] Comment on above: Order Comment: Dylan olvera Type: BLOOD SPECIMENOrdering Facility: [facility] Address: [address] [place] [address] Result Comment: Loulou min K Antagonist (VKA) Therapeutic Range: INR 2 to 3 (Target INR of 2.5)Note: For patients treated with VKA drugs, such as warfarin, the [place] [employer] 2012 Guideline recommends [...] al. Chest 2012, 141:7S-47SNishsierra RA, et al. [facility] 2017, 70: 252-289 Performed By: #### 3 4528-0, PTTAC ####[facility] LABCLIA [id number] [place] [address] [place] PT Coag (PPP) [Time] 13.3 s High 9.7-13.0 [facility] Comment on above: Order Comment: Dylan olvera Type: BLOOD SPECIMENOrdering Facility: [facility] Address: [address] [place] [address] Performed By: #### 3 4528-0, PTTAC ####[facility] LABCLIA [id number] [place] [address] [place] PTT, ANTICOAGULANT THERAPYon 05-09-2024 aPTT Coag (PPP) [Time] 31.7 s Normal 23.0-32.4 [facility] Comment on above: Order Comment: Dylan olvera Type: BLOOD SPECIMENOrdering Facility: [facility] Address: [address] [place] [address] Performed By: #### 3 4528-0, PTTAC ####[facility] LABCLIA [id number] [place] [address] [place] aPTT Coag (PPP) [Time] 72.4 s High 23.0-32.4 [facility] Comment on above: Order Comment: Speci men Type: BLOOD SPECIMEN [facility] Address: [address] [place] [address] Performed By: #### P TTAC #### [facility] CLIA [id number] [address] [place] [address] [place] aPTT Coag (PPP) [Time] 82.1 s High 23.0-32.4 [facility] Comment on above: Order Comment: Speci men Type: BLOOD SPECIMEN [facility] Address: [address] [place] [address] Performed By: #### L [id number] #### [facility] CLIA [id number] [place] [address] [place] TSH SerPl-aCncon 05-09-2024 TSH Qn 0.519 m[IU]/L Normal 0.270-4.200 [facility] Comment on above: Order Comment: Speci men Type: BLOOD SPECIMENOrdering Facility: [facility] Address: [address] [place] [address] Performed By: #### 2 4323-8, 17077-7, 56995-4, 3016-3 ####[facility] LABCLIA [id number] [place] [address] [place] XR CHEST 1V FRONTAL PORTon 0 05-09-2024 XR CHEST 1V FRONTAL PORT Normal [facility] Basic metabolic 2000 panelon 05-08-2024 Anion gap [Moles/Vol] 11 mmol/L Normal 8-15 [facility] Comment on above: Order Comment: Speci men Type: BLOOD SPECIMEN [facility] Address: [address] [place] [address] Performed By: #### 3 4528-0, PTTAC #### [facility] CLIA [id number] [address] [place] [address] [place] Calcium [Mass/Vol] 8.4 mg/dL Low 8.5-10.2 [facility] Comment on above: Order Comment: Speci men Type: BLOOD SPECIMEN [facility] Address: [address] [place] [address] Performed By: #### 3 4528-0, PTTAC #### [facility] CLIA [id number] [place] [address] [place] Chloride [Moles/Vol] 105 mmol/L Normal 98-107 [facility] Comment on above: Order Comment: Speci men Type: BLOOD SPECIMEN [facility] Address: [address] [place] [address] Performed By: #### 3 4528-0, PTTAC #### [facility] CLIA [id number] [address] [place] [address] [place] CO2 [Moles/Vol] 24 mmol/L Normal 22-30 [facility] Comment on above: Order Comment: Speci men Type: BLOOD SPECIMEN [facility] Address: [address] [place] [address] Performed By: #### 3 4528-0, PTTAC #### [facility] CLIA [id number] [address] [place] [address] [place] Creatinine [Mass/Vol] 2.07 mg/dL High 0.73-1.22 [facility] Comment on above: Order Comment: Speci men Type: BLOOD SPECIMEN [facility] Address: [address] [place] [address] Performed By: #### 3 4528-0, PTTAC #### [facility] CLIA [id number] [address] [place] [address] [place] Creatinine and Glomerular filtration rate.predicted panel (S/P/Bld) 31 mL/min/1.73m??? Low >=60 [facility] Comment on above: Order Comment: Dylan olvera Type: BLOOD SPECIMEN [facility] Address: [address] [place] [address] Result Comment: Etta mated Glomerular Filtration Rate [...] Performed By: #### 3 4528-0, PTTAC #### [facility] CLIA [id number] [facility] [place] [address] [place] Glucose [Mass/Vol] 105 mg/dL High 74-99 [facility] Comment on above: Order Comment: Dylan olvera Type: BLOOD SPECIMEN [facility] Address: [address] [place] [address] Result Comment: The [place] Diabetes Association (ADA) provides guidance for cutoff [...] Standards of Medical Care in Diabetes 2016, [place] Diabetes [employer]. Diabetes Care. 2016.39(Suppl 1). Performed By: #### 3 4528-0, PTTAC #### [facility] CLIA [id number] [facility] [place] [id number] [place] Potassium [Moles/Vol] 3.4 mmol/L Low 3.7-5.1 [facility] Comment on above: Order Comment: Dylan olvera Type: BLOOD SPECIMEN [facility] Address: [address] [place] [address] Performed By: #### 3 4528-0, PTTAC #### [facility] CLIA [id number] [address] [place] [address] [place] Sodium [Moles/Vol] 140 mmol/L Normal 136-144 [facility] Comment on above: Order Comment: Speci men Type: BLOOD SPECIMEN [facility] Address: [address] [place] [address] Performed By: #### 3 4528-0, PTTAC #### [facility] CLIA [id number] [address] [place] [address] [place] Urea nitrogen [Mass/Vol] 39 mg/dL High 9-24 [facility] Comment on above: Order Comment: Speci men Type: BLOOD SPECIMEN [facility] Address: [address] [place] [address] Performed By: #### 3 4528-0, PTTAC #### [facility] [place] [id number] [address] [place] [address] [place] CBC panel Auto (Bld)on 05-08 Erythrocyte distribution width (RBC) [Ratio] 22.1 % High 11.5-15.0 [facility] Comment on above: Order Comment: Speci men Type: BLOOD SPECIMEN [facility] Address: [address] [place] [address] Performed By: #### L [id number] #### [facility] CLIA [id number] [address] [place] [address] [place] Hematocrit (Bld) [Volume fraction] 27.9 % Low 39.0-51.0 [facility] Comment on above: Order Comment: Speci men Type: BLOOD SPECIMEN [facility] Address: [address] [place] [address] Performed By: #### L [id number] #### [facility] CLIA [id number] [address] [place] [address] [place] Hemoglobin (Bld) [Mass/Vol] 8.1 g/dL Low 13.0-17.0 [facility] Comment on above: Order Comment: Speci men Type: BLOOD SPECIMEN [facility] Address: [address] [place] [address] Performed By: #### L [id number] #### [facility] CLIA [id number] [address] [place] MCH (RBC) [Entitic mass] 29.9 pg Normal 26.0-34.0 [facility] Comment on above: Order Comment: Speci men Type: BLOOD SPECIMEN [facility] Address: [address] [place] [address] Performed By: #### L [id number] #### [facility] [place] [id number] [address] [place] [address] [place] MCHC (RBC) [Mass/Vol] 29.0 g/dL Low 30.5-36.0 [facility] Comment on above: Order Comment: Speci men Type: BLOOD SPECIMEN [facility] Address: [address] [place] [address] Performed By: #### L [id number] #### [facility] IA [id number] [address] [place] [address] [place] MCV (RBC) [Entitic vol] 103.0 fL High 80.0-100.0 [facility] Comment on above: Order Comment: Speci men Type: BLOOD SPECIMEN [facility]ing Facility[facility] Address: [address] [place] [address] Performed By: #### L [id number] #### [facility] CLIA [id number] [address] [place] Nucleated RBC (Bld) [#/Vol] 10*3/uL Normal <0.01 [facility] Comment on above: Order Comment: Speci men Type: BLOOD SPECIMEN [facility] Address: [address] [place] [address] Performed By: #### L [id number] #### [facility] CLIA [id number] [address] [place] [address] [place] Platelet mean volume (Bld) [Entitic vol] 10.6 fL Normal 9.0-12.7 [facility] Comment on above: Order Comment: Speci men Type: BLOOD SPECIMEN Ordering Facility: [facility] Address: [address] [place] [address] Performed By: #### L [id number] #### [facility] CLIA [id number] [address] [place] [address] [place] Platelets (Bld) [#/Vol] 166 10*3/uL Normal 150-400 [facility] Comment on above: Order Comment: Speci men Type: BLOOD SPECIMEN Ordering Facility: [facility] Address: [address] [place] [address] Performed By: #### L [id number] #### [facility] CLIA [id number] [address] [place] [address] [place] RBC (Bld) [#/Vol] 2.71 10*6/uL Low 4.20-6.00 [facility] Comment on above: Order Comment: Speci men Type: BLOOD SPECIMEN Ordering Facility: [facility] Address: [address] [place] [address] Performed By: #### L [id number] #### [facility] CLIA [id number] [address] [place] [address] [facility] [place] WBC (Bld) [#/Vol] 5.29 10*3/uL Normal 3.70-11.00 [facility] Comment on above: Order Comment: Speci men Type: BLOOD SPECIMEN Ordering Facility: [facility] Address: [address] [place] [address] Performed By: #### L [id number] #### [facility] CLIA [id number] [address] CONSULT PROGon 05-08-2024 CONSULT PROG HNO ID: [id number] Author: LORENA GALINDO APRN.MILK INSPECTOR Service: Gastroenterology Author Type: Nurse Practitioner Type: Consult Progress Note Filed: 05/08/2024 15:15 Note Text: Brief GI plan of care: Met with patient at bedside. Called 3 daughters via speaker phone whom were precipitation equipment tender for entire interview. Patient is still struggling [...] of Epic record/Care Everywhere. Spoke with Alex (vehicle operator technician) whom states no adverse effects of oral contrast to kidney so will proceed with CT A/P oral contrast only at this time. GI team to follow along with results of Ct, final decisions this weekend. Spoke with INOCENTE Dobbins (endo coordinator) whom states is was confirmed per anesthesia yesterday case can be done at [facility] so long as during working hours (not with precipitation equipment tender staff/resources). Updated Dr. Heredia, Dr. Bardales. Normal [facility] CONSULT PROG HNO ID: [id number] Author: DEBBI NICOLE APRN.DOROTHY Service: Cardiovascular Medicine Author Type: Nurse Practitioner Type: Consult Progress Note Filed: 05/08/2024 10:46 Note Text: [facility] CONSULT PROGRESS NOTE (Template ID [id number]) CONSULTING SERVICE: Cardiology: Consult Team PRIMARY SERVICE: [...] systolic function is moderately decreased. - Percutaneous cnpg-og-swfa repair of the mitral valve with 1 [...] correlate SSMENT / RECOMMENDATIONS / PLAN Mr. Antonio is a 84 year old male followed by Dr Liang Brady at [facility] , who presented from outpatient Echo lab at [facility] to ER due for generalized weakness and SANTILLAN. On admission he was found to be anemic with drop in his H and H. and stools Guaiac +. Treated with iron. NT Pro BNP 41322. CXR: left pleural effusions. He completed 325 mg ASA and Plavix course for 4 weeks. AC was held while on DAPT and started on Xarelto on 03/29/24 for suspected LV thrombus. Chronic combined systolic and diastolic CHF, h/o severe ICM (LV EF ~15%), s/p DC-ICD (in 2019), (more content not included)... Normal [facility] CT ABD/PEL WO IVCONon 2023 CT ABD/PEL WO IVCON * * *Final Report* * * DATE OF EXAM: May 08 2024 1:40PM [facility] 0531 - CT ABD/PEL WO IVCON / [...] small volume of stool in the colon. Top Lift Compresser: LUZ MARIA Transcribe Date/Time: May 08 2024 3:12P Dictated by : EVANS SENIOR MD This examination was interpreted and the report reviewed and electronically signed by: EVANS SENIOR MD on May 08 2024 3:24PM EST [id number] Normal [facility] Magnesium SerPl-mCncon 05-08 Magnesium [Mass/Vol] 2.3 mg/dL Normal 1.7-2.3 [facility] Comment on above: Order Comment: Speci men Type: BLOOD SPECIMEN Ordering Facility: [facility] Address: [address] [place] [address] Performed By: #### 3 4528-0, PTTAC #### [facility] CLIA [id number] [place] [address] [place] NURSING PROGon 05-08-2024 NURSING PROG HNO ID: [id number] Author: MANDI PITTS RN Service: ? Author Type: Registered Nurse [...] will notify LIP of any changes. Normal [facility] PTT, ANTICOAGULANT THERAPYon 05-08-2024 aPTT Coag (PPP) [Time] 66.1 s High 23.0-32.4 [facility] Comment on above: Order Comment: Dylan olvera Type: BLOOD SPECIMEN Ordering Facility: [facility] Address: [address] [place] [address] Performed By: #### P TTAC #### [facility] CLIA [id number] [address] [place] [address] [facility] aPTT Coag (PPP) [Time] 48.5 s High 23.0-32.4 [facility] Comment on above: Order Comment: Dylan olvera Type: BLOOD SPECIMEN Ordering Facility: [facility] Address: [address] [place] [address] Performed By: #### L [id number] #### [facility] CLIA [id number] [address] [place] [address] [place] [facility] aPTT Coag (PPP) [Time] 56.6 s High 23.0-32.4 [facility] Comment on above: Order Comment: Dylan olvera Type: BLOOD SPECIMEN Ordering Facility: [facility] Address: [address] [place] [address] Performed By: #### P TTAC #### [facility] CLIA [id number] [address] [place] [address] [facility] aPTT Coag (PPP) [Time] 80.2 s High 23.0-32.4 [facility] Comment on above: Order Comment: Dylan olvera Type: BLOOD SPECIMEN Ordering Facility: [facility] Address: [address] [place] [address] Performed By: #### 3 4528-0, PTTAC #### [facility] CLIA [id number] [address] [place] [address] [place] Basic metabolic 2000 panelon 05-07-2024 Anion gap [Moles/Vol] 11 mmol/L Normal 8-15 [facility] Comment on above: Order Comment: Speci men Type: BLOOD SPECIMEN Ordering Facility: [facility] Address: [address] [place] [address] Performed By: #### L [id number] #### [facility] CLIA [id number] [address] [place] [address] [place] Calcium [Mass/Vol] 8.6 mg/dL Normal 8.5-10.2 [facility] Comment on above: Order Comment: Speci men Type: BLOOD SPECIMEN Ordering Facility: [facility] Address: [address] [place] [address] Performed By: #### L [id number] #### [facility] CLIA [id number] [address] [place] [address] [place] Chloride [Moles/Vol] 104 mmol/L Normal 98-107 [facility] Comment on above: Order Comment: Speci men Type: BLOOD SPECIMEN Ordering Facility: [facility] Address: [address] [place] [address] Performed By: #### L [id number] #### [facility] CLIA [id number] [address] [place] [address] [place] CO2 [Moles/Vol] 25 mmol/L Normal 22-30 [facility] Comment on above: Order Comment: Speci men Type: BLOOD SPECIMEN Ordering Facility: [facility] Address: [address] [place] [address] Performed By: #### L [id number] #### [facility] CLIA [id number] [address] [place] [address] [place] Creatinine [Mass/Vol] 2.09 mg/dL High 0.73-1.22 [facility] Comment on above: Order Comment: Dylan olvera Type: BLOOD SPECIMEN Ordering Facility: [facility] Address: [address] [place] [address] Performed By: #### L [id number] #### [facility] CLIA [id number] [facility] [address] [place] Creatinine and Glomerular filtration rate.predicted panel (S/P/Bld) 31 mL/min/1.73m??? Low >=60 [facility] Comment on above: Order Comment: Dylan olvera Type: BLOOD SPECIMEN Ordering Facility: [facility] Address: [address] [place] [address] Result Comment: Etta mated Glomerular Filtration Rate [...] reflect actual GFR. Performed By: #### L [id number] #### [facility] CLIA [id number] [address] [facility] [place] [address] [place] Glucose [Mass/Vol] 93 mg/dL Normal 74-99 [facility] Comment on above: Order Comment: Dylan may Type: BLOOD SPECIMEN Ordering Facility: [facility] Address: [address] [place] [address] Result Comment: The [place] [employer] (ADA) provides guidance for cutoff [...] Standards of Medical Care in Diabetes 2016, [place] [employer]. Diabetes Care. 2016.39(Suppl 1). Performed By: #### L [id number] #### [facility] CLIA [id number] [address] [place] [address] [place] Potassium [Moles/Vol] 3.6 mmol/L Low 3.7-5.1 [facility] Comment on above: Order Comment: Speci men Type: BLOOD SPECIMEN Ordering Facility: [facility] Address: [address] [place] [address] Performed By: #### L [id number] #### [facility] CLIA [id number] [address] [place] [address] [place] Sodium [Moles/Vol] 140 mmol/L Normal 136-144 [facility] Comment on above: Order Comment: Speci men Type: BLOOD SPECIMEN Ordering Facility: [facility] Address: [address] [place] [address] Performed By: #### L [id number] #### [facility] IA [id number] [address] [place] [address] [place] Urea nitrogen [Mass/Vol] 42 mg/dL High 9-24 [facility] Comment on above: Order Comment: Speci men Type: BLOOD SPECIMEN Ordering Facility: [facility] Address: [address] [place] [address] Performed By: #### L [id number] #### [facility] IA [id number] [address] [place] [address] [place] CBC panel Auto (Bld)on 05-07 Erythrocyte distribution width (RBC) [Ratio] 22.4 % High 11.5-15.0 [facility] Comment on above: Order Comment: Speci men Type: BLOOD SPECIMEN Ordering Facility: [facility] Address: [address] [place] [address] Performed By: #### 3 4528-0, PTTAC #### [facility] [place] [id number] [address] [place] [id number] [place] Hematocrit (Bld) [Volume fraction] 27.2 % Low 39.0-51.0 [facility] Comment on above: Order Comment: Speci men Type: BLOOD SPECIMEN Ordering Facility: [facility] Address: [address] [place] [address] Performed By: #### 3 4528-0, PTTAC #### [facility] CLIA [id number] [address] STATES OF [facility] Hemoglobin (Bld) [Mass/Vol] 8.0 g/dL Low 13.0-17.0 [facility] Comment on above: Order Comment: Speci men Type: BLOOD SPECIMEN Ordering Facility: [facility] Address: [address] [place] [address] Performed By: #### 3 4528-0, PTTAC #### [facility] IA [id number] [address] [place] [address] [place] MCH (RBC) [Entitic mass] 30.4 pg Normal 26.0-34.0 [facility] Comment on above: Order Comment: Speci men Type: BLOOD SPECIMEN Ordering Facility: [facility] Address: [address] [place] [address] Performed By: #### 3 4528-0, PTTAC #### [facility] [place] [id number] [place] MCHC (RBC) [Mass/Vol] 29.4 g/dL Low 30.5-36.0 [facility] Comment on above: Order Comment: Speci men Type: BLOOD SPECIMEN Ordering Facility: [facility] Address: [address] [place] [address] Performed By: #### 3 4528-0, PTTAC #### [facility] CLIA [id number] [place] MCV (RBC) [Entitic vol] 103.4 fL High 80.0-100.0 [facility] Comment on above: Order Comment: Speci men Type: BLOOD SPECIMEN Ordering Facility: [facility] Address: [address] [place] [address] Performed By: #### 3 4528-0, PTTAC #### [facility] CLIA [id number] [address] [place] [address] [place] Nucleated RBC (Bld) [#/Vol] 0.02 10*3/uL High <0.01 [facility] Comment on above: Order Comment: Speci men Type: BLOOD SPECIMEN Ordering Facility: [facility] Address: [address] [place] [address] Performed By: #### 3 4528-0, PTTAC #### [facility] CLIA [id number] [address] [place] [address] [place] Platelet mean volume (Bld) [Entitic vol] 10.5 fL Normal 9.0-12.7 [facility] Comment on above: Order Comment: Speci men Type: BLOOD SPECIMEN Ordering Facility: [facility] Address: [address] [place] [address] Performed By: #### 3 4528-0, PTTAC #### [facility] CLIA [id number] [address] [place] [address] [place] Platelets (Bld) [#/Vol] 158 10*3/uL Normal 150-400 [facility] Comment on above: Order Comment: Speci men Type: BLOOD SPECIMEN Ordering Facility: [facility] Address: [address] [place] [address] Performed By: #### 3 4528-0, PTTAC #### [facility] CLIA [id number] [address] [place] [address] [place] RBC (Bld) [#/Vol] 2.63 10*6/uL Low 4.20-6.00 [facility] Comment on above: Order Comment: Speci men Type: BLOOD SPECIMEN Ordering Facility: [facility] Address: [address] [place] [address] Performed By: #### 3 4528-0, PTTAC #### [facility] CLIA [id number] [address] [place] [address] [place] WBC (Bld) [#/Vol] 5.25 10*3/uL Normal 3.70-11.00 [facility] Comment on above: Order Comment: Speci men Type: BLOOD SPECIMEN Ordering Facility: [facility] Address: [address] [place] [address] Performed By: #### 3 4528-0, PTTAC #### [facility] IA [id number] [address] [place] Erythrocyte distribution width (RBC) [Ratio] 22.5 % High 11.5-15.0 [facility] Comment on above: Order Comment: Speci men Type: BLOOD SPECIMEN Ordering Facility: [facility] Address: [address] [place] [address] Performed By: #### P TTAC #### [facility] [place] [id number] [address] [place] [address] [place] Hematocrit (Bld) [Volume fraction] 28.8 % Low 39.0-51.0 [facility] Comment on above: Order Comment: Speci men Type: BLOOD SPECIMEN Ordering Facility: [facility] Address: [address] [place] [address] Performed By: #### P TTAC #### [facility] IA [id number] [address] [place] [address] [place] Hemoglobin (Bld) [Mass/Vol] 8.4 g/dL Low 13.0-17.0 [facility] Comment on above: Order Comment: Speci men Type: BLOOD SPECIMEN Ordering Facility: [facility] Address: [address] [place] [address] Performed By: #### P TTAC #### [facility] IA [id number] [address] [place] [address] [place] MCH (RBC) [Entitic mass] 30.2 pg Normal 26.0-34.0 [facility] Comment on above: Order Comment: Speci men Type: BLOOD SPECIMEN Ordering Facility: [facility] Address: [address] [place] [address] Performed By: #### P TTAC #### [facility] [id number] [address] [place], [place] [id number] [place] MCHC (RBC) [Mass/Vol] 29.2 g/dL Low 30.5-36.0 [facility] Comment on above: Order Comment: Speci men Type: BLOOD SPECIMEN Ordering Facility: [facility] Address: [address] [place] [address] Performed By: #### P TTAC #### [facility] IA [id number] [address] [place] [address] [place] MCV (RBC) [Entitic vol] 103.6 fL High 80.0-100.0 [facility] Comment on above: Order Comment: Speci men Type: BLOOD SPECIMEN Ordering Facility: [facility] Address: [address] [place] [address] Performed By: #### P TTAC #### [facility] IA [id number] [address] [place] [address] [place] Nucleated RBC (Bld) [#/Vol] 0.03 10*3/uL High <0.01 [facility] Comment on above: Order Comment: Speci men Type: BLOOD SPECIMEN Ordering Facility: [facility] Address: [address] [place] [address] Performed By: #### P TTAC #### [facility] IA [id number] [address] [place] [address] [place] Platelet mean volume (Bld) [Entitic vol] 10.6 fL Normal 9.0-12.7 [facility] Comment on above: Order Comment: Speci men Type: BLOOD SPECIMEN Ordering Facility: [facility] Address: [address] [place] [address] Performed By: #### P TTAC #### [facility] IA [id number] [address] [place] [address] [place] Platelets (Bld) [#/Vol] 160 10*3/uL Normal 150-400 [facility] Comment on above: Order Comment: Speci men Type: BLOOD SPECIMEN Ordering Facility: [facility] Address: [address] [place] [address] Performed By: #### P TTAC #### [facility] IA [id number] [address] [place] [address] [place] [address] [facility] [place] RBC (Bld) [#/Vol] 2.78 10*6/uL Low 4.20-6.00 [facility] Comment on above: Order Comment: Dylan olvera Type: BLOOD SPECIMEN Ordering Facility: [facility] Address: [address] [place] [address] Performed By: #### P TTAC #### [facility] CLIA [id number] [address] [place] [address] [facility] WBC (Bld) [#/Vol] 6.32 10*3/uL Normal 3.70-11.00 [facility] Comment on above: Order Comment: Dylan olvera Type: BLOOD SPECIMEN Ordering Facility: [facility] Address: [address] [place] [address] Performed By: #### P TTAC #### [facility] CLIA [id number] [address] [place] [address] [facility] CONSULTon 05-07-2024 CONSULT HNO ID: [id number] Author: SWATHI DE LOS SANTOS MD Service: [...] male followed by Dr Liang Brady at [facility] with h/o severe ICM (LV EF ~15%), [...] presented yesterday from outpatient echo lab at [facility] to ER due for generalized weakness and [...] iron. Denies melena. His NT Pro BNP [id number]. CXR: left pleural effusions. He was tested +Guaiac on admission PAST MEDICAL HISTORY 09/03/2022: Carotid stenosis, asymptomatic, bilateral No date: Chronic back pain Comment: stenosis of the back 09/03/2022: Chronic combined systolic and diastolic congestive heart failure ([facility]) No date: Dyslipidemia No date: GERD (gastroesophageal reflux disease) No date: Heart failure, acute systolic ([facility]) No date: Hypertension No date: Hypothyroid No date: Myocardial infarct, old No date: Occlusion and stenosis of carotid artery without mention of cerebral infarction 2020: Prostate cancer ([facility]) 11/17/2012: PVD (peripheral vascular disease) ([facility]) 09/03/2022: Stroke (cerebrum) ([facility]) No date: Systolic heart failure ([facility]) No date: Thyroid disorder 04/26/2023: 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 kidney disease, unspecified CKD stage, unspecified whether longterm insulin use ([facility]) 04/28/2012: Ventricular tachycardia ([facility]) PAST SURGICAL HISTORY 2012: ANGIOGRAPHY, EXT CAROTID; [...] Artery Disease Father Heart Attack Father fatal NE at age 77 Ischemic Heart Disease Brother CABGx6 first at age 72 No Known Problems Maternal Grandmother No Known Problems Maternal Grandfather No Known Problems Paternal Grandmother No Known Problems Paternal Grandfather No Known Problems Daughter No Known Problems Daughter No Known Problems Daughter other (Other) Other paternal cousin at age 50 of [place] Social History Tobacco Use Smoking status: Former [...] Take 1,000 Units by mouth as needed. [address] LIGHT THYROID 15 mg tablet 05/05/2024 Yes Yes [...] 10 mg by (more content not included)... [facility] CONSULT HNO ID: [id number] Author: CARLOS HOUSER APRN.CNP Service: Gastroenterology Author [...] Patient reports having OP ECHO done at [facility] yesterday, noted to be more weak, family [...] artery disease involving coronary bypass graft of [place] heart without angina pectoris (POA: Yes) #Systolic heart failure (HCC) (POA: Yes) #S/P CABG (coronary artery bypass graft) (POA: Yes) #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 kidney disease, unspecified CKD stage, unspecified whether longterm insulin use (HCC) (POA: Yes) #Stage 3b [...] acute systolic (more content not included)... Normal [facility] 2023 Ferritin [Mass/Vol] 804.6 ng/mL High 30.3-565.7 [facility] Comment on above: Order Comment: Dylan olvera Type: BLOOD SPECIMEN Ordering Facility: [facility] Address: [address] [place] [address] Performed By: #### L [id number] #### [facility] CLIA [id number] [address] [place] [address] [place] Iron and Iron binding capaci [facility] 05-07-2024 Iron [Mass/Vol] 56 ug/dL Normal 41-186 [facility] Comment on above: Order Comment: Dylan olvera Type: BLOOD SPECIMEN Ordering Facility: [facility] Address: [address] [place] [address] Performed By: #### L [id number] #### [facility] CLIA [id number] [address] [place] [address] [place] Iron binding capacity [Mass/Vol] 239 ug/dL Normal 232-386 [facility] Comment on above: Order Comment: Speci men Type: BLOOD SPECIMEN Ordering Facility: [facility] Address: [address] [place] [address] Performed By: #### L [id number] #### [facility] CLIA [id number] [address] [place] [address] [place] Iron/TIBC [Molar ratio] 23.4 % Normal 15.0-57.0 [facility] Comment on above: Order Comment: Dylan olvera Type: BLOOD SPECIMEN Ordering Facility: [facility] Address: [address] [place] [address] Performed By: #### L [id number] #### [facility] CLIA [id number] [address] [place] [id number] [place] Magnesium SerPl-mCncon 05-07 Magnesium [Mass/Vol] 2.4 mg/dL High 1.7-2.3 [facility] Comment on above: Order Comment: Dylan olvera Type: BLOOD SPECIMEN Ordering Facility: [facility] Address: [address] [place] [address] Performed By: #### L [id number] #### [facility] CLIA [id number] [address] [place] [id number] [place] PT panel Coag (PPP)on 2023 INR Coag (PPP) [Relative time] 1.4 {INR} High 0.9-1.3 [facility] Comment on above: Order Comment: Dylan olvera Type: BLOOD SPECIMEN Ordering Facility: [facility] Address: [address] [place] [address] Result Comment: Loulou min K Antagonist (VKA) Therapeutic Range: INR 2 to 3 (Target INR of 2.5) Note: For patients treated with VKA drugs, such as warfarin, the [employer] Physicians 2012 Guideline recommends [...] Chest 2012, 141:7S-47S Javier RA, et al. [facility] 2017, 70: 252-289 Performed By: #### 3 4528-0, PTTAC #### [facility] CLIA [id number] [address] [place] [address] [place] [facility] PT Coag (PPP) [Time] 14.9 s High 9.7-13.0 [facility] Comment on above: Order Comment: Speci men Type: BLOOD SPECIMEN Ordering Facility: [facility] Address: [address] [place] [address] Performed By: #### 3 4528-0, PTTAC #### [facility] CLIA [id number] [address] [place] [id number] [place] [facility] PTT, ANTICOAGULANT THERAPYon 05-07-2024 aPTT Coag (PPP) [Time] 76.0 s High 23.0-32.4 [facility] Comment on above: Order Comment: Speci men Type: BLOOD SPECIMEN Ordering Facility: [facility] Address: [address] [place], [place] [address] [address] Performed By: #### 3 4528-0, PTTAC #### [facility] CLIA [id number] [address] [place] [address] [facility] aPTT Coag (PPP) [Time] 30.8 s Normal 23.0-32.4 [facility] Comment on above: Order Comment: Speci men Type: BLOOD SPECIMEN Ordering Facility: [facility] Address: [address] [place] [address] Performed By: #### 3 4528-0, PTTAC #### [facility] CLIA [id number] [address] [place] [address] [facility] THERAPY NTon 05-07-2024 THERAPY NT HNO ID: [id number] Author: KODMAN, JENNY, OTR/L Service: Occupational Therapy Author Type: Occupational Therapist Type: Therapy (PT/OT/Speech/Resp) Filed: 05/07/2024 15:43 Note Text: Occupational Therapy consult received. Chart reviewed and spoke with TIMA Walker who reports no acute care OT needs are identified at this time. Current nursing and PT 6 clicks score is 24. Plan to d/c OT consult. [facility] THERAPY NT HNO ID: [id number] Author: ADRIANA BLACKMAN, PT, DPT Service: Physical Therapy Author Type: Physical Therapist Type: Therapy (PT/OT/Speech/Resp) Filed: 05/07/2024 14:14 Note Text: Physical Therapy Evaluation Summary SERVICE DATE: 05/07/2024 SERVICE TIME: 1111 to 1204 ROOM: [place] [address] PT 6 Clicks Score: 24 DISCHARGE RECOMMENDATIONS Outpatient PT Recommended Discharge Disposition Comments: Recommend continued outpt cardiac rehab. pt may pursue outpt PT for core/generalized strengthening, as well as further gait training once DC'd from cardiac rehab. Rec continued ambulation multiple times per day both during remainder of hospital stay, as well as at DC. Rec use of WW at [place]. Pt may need to consider alternative living [...] steps, reports going to OP cardiac rehab [facility] [employer] COMPLIANCE SPECIALIST. Reports distance pt able to ambulate [...] Reduced mobility-other TREATMENT INTERVENTIONS Evaluation, Gait Training (37089), Therapeutic Activity (06502) Timed Code Treatment (minutes): 38 Skilled Treatment [...] therefore, use of WW is recommended at [place]. Gait Device: Wheeled Walker General Deviations/Observations: Dolores [...] Strengthening, Functi (more content not included)... Normal [facility] CBC W Auto Differential pane l (Bld)on 05-06-2024 Basophils (Bld) [#/Vol] 0.04 10*3/uL Normal <0.11 [facility] Comment on above: Order Comment: Speci men Type: BLOOD SPECIMEN Ordering Facility: [facility] Address: [address] [place] [address] Performed By: #### P TTAC #### [facility] CLIA [id number] [address] [place] [address] [place] Basophils/100 WBC (Bld) 0.6 % Normal [facility] Comment on above: Order Comment: Speci men Type: BLOOD SPECIMEN Ordering Facility: [facility] Address: [address] [place] [address] Performed By: #### P TTAC #### [facility] CLIA [id number] [address] [place] [address] [place] Differential cell count method Nom (Bld) Auto Normal [facility] Comment on above: Order Comment: Speci men Type: BLOOD SPECIMEN Ordering Facility: [facility] Address: [address] [place] [address] Performed By: #### P TTAC #### [facility] CLIA [id number] [address] [place] [id number] [place] Eosinophils (Bld) [#/Vol] 0.07 10*3/uL Normal <0.46 [facility] Comment on above: Order Comment: Speci men Type: BLOOD SPECIMEN Ordering Facility: [facility] Address: [address] [place] [address] Performed By: #### P TTAC #### [facility] IA [id number] [address] [place] [address] [place] Eosinophils/100 WBC (Bld) 1.1 % Normal [facility] Comment on above: Order Comment: Speci men Type: BLOOD SPECIMEN Ordering Facility: [facility] Address: [address] [place] [address] Performed By: #### P TTAC #### [facility] IA [id number] [address] [place] [address] [place] Erythrocyte distribution width (RBC) [Ratio] 22.2 % High 11.5-15.0 [facility] Comment on above: Order Comment: Speci men Type: BLOOD SPECIMEN Ordering Facility: [facility] Address: [address] [place] [address] Performed By: #### P TTAC #### [facility] [id number] [address] [place] [address] [place] Hematocrit (Bld) [Volume fraction] 29.6 % Low 39.0-51.0 [facility] Comment on above: Order Comment: Speci men Type: BLOOD SPECIMEN Ordering Facility: [facility] Address: [address] [place] [address] Performed By: #### P TTAC #### [facility] [id number] [address] [place] [address] [place] Hemoglobin (Bld) [Mass/Vol] 8.8 g/dL Low 13.0-17.0 [facility] Comment on above: Order Comment: Speci men Type: BLOOD SPECIMEN Ordering Facility: [facility] Address: [address] [place] [address] Performed By: #### P TTAC #### [facility] [id number] [address] [place] [address] [place] Immature granulocytes (Bld) [#/Vol] 0.03 10*3/uL Normal <0.10 [facility] Comment on above: Order Comment: Speci men Type: BLOOD SPECIMEN Ordering Facility: [facility] Address: [address] [place] [address] Performed By: #### P TTAC #### [facility] IA [id number] [address] [place] Immature granulocytes/100 WBC (Bld) 0.5 % Normal [facility] Comment on above: Order Comment: Speci men Type: BLOOD SPECIMEN Ordering Facility: [facility] Address: [address] [place] [address] Performed By: #### P TTAC #### [facility] IA [id number] [address] [place] [address] [place] Lymphocytes (Bld) [#/Vol] 1.05 10*3/uL Normal 1.00-4.00 [facility] Comment on above: Order Comment: Speci men Type: BLOOD SPECIMEN Ordering Facility: [facility] Address: [address] [place] [address] Performed By: #### P TTAC #### [facility] IA [id number] [address] [place] [address] [place] Lymphocytes/100 WBC (Bld) 16.1 % Normal [facility] Comment on above: Order Comment: Speci men Type: BLOOD SPECIMEN Ordering Facility: [facility] Address: [address] [place] [address] Performed By: #### P TTAC #### [facility] IA [id number] [address] [place] [id number] [place] MCH (RBC) [Entitic mass] 30.0 pg Normal 26.0-34.0 [facility] Comment on above: Order Comment: Speci men Type: BLOOD SPECIMEN Ordering Facility: [facility] Address: [address] [place] [address] Performed By: #### P TTAC #### [facility] IA [id number] [address] [place] [address] [place] MCHC (RBC) [Mass/Vol] 29.7 g/dL Low 30.5-36.0 [facility] Comment on above: Order Comment: Speci men Type: BLOOD SPECIMEN Ordering Facility: [facility] Address: [address] [place] [address] Performed By: #### P TTAC #### [facility] IA [id number] [address] [place] [address] [place] MCV (RBC) [Entitic vol] 101.0 fL High 80.0-100.0 [facility] Comment on above: Order Comment: Speci men Type: BLOOD SPECIMEN Ordering Facility: [facility] Address: [address] [place] [address] Performed By: #### P TTAC #### [facility] IA [id number] [address] [place] [address] [place] Monocytes (Bld) [#/Vol] 0.56 10*3/uL Normal <0.87 [facility] Comment on above: Order Comment: Speci men Type: BLOOD SPECIMEN Ordering Facility: [facility] Address: [address] [place] [address] Performed By: #### P TTAC #### [facility] IA [id number] [address] [place] [id number] [place] Monocytes/100 WBC (Bld) 8.6 % Normal [facility] Comment on above: Order Comment: Speci men Type: BLOOD SPECIMEN Ordering Facility: [facility] Address: [address] [place] [address] Performed By: #### P TTAC #### [facility] IA [id number] [address] [place] [address] [place] Neutrophils (Bld) [#/Vol] 4.77 10*3/uL Normal 1.45-7.50 [facility] Comment on above: Order Comment: Speci men Type: BLOOD SPECIMEN Ordering Facility: [facility] Address: [address] [place] [address] Performed By: #### P TTAC #### [facility] IA [id number] [address] [place] [address] [place] Neutrophils/100 WBC (Bld) 73.1 % Normal [facility] Comment on above: Order Comment: Speci men Type: BLOOD SPECIMEN Ordering Facility: [facility] Address: [address] [place] [address] Performed By: #### P TTAC #### [facility] IA [id number] [address] [place] [address] [place] Nucleated RBC (Bld) [#/Vol] 0.02 10*3/uL High <0.01 [facility] Comment on above: Order Comment: Speci men Type: BLOOD SPECIMEN Ordering Facility: [facility] Address: [address] [place] [address] Performed By: #### P TTAC #### [facility] IA [id number] [address] [place] Nucleated RBC/100 WBC (Bld) [Ratio] 0.3 /100 WBC Normal [facility] Comment on above: Order Comment: Speci men Type: BLOOD SPECIMEN Ordering Facility: [facility] Address: [address] [place] [address] Performed By: #### P TTAC #### [facility] IA [id number] [address] [place] [address] [place] Platelet mean volume (Bld) [Entitic vol] 10.8 fL Normal 9.0-12.7 [facility] Comment on above: Order Comment: Speci men Type: BLOOD SPECIMEN Ordering Facility: [facility] Address: [address] [place] [address] Performed By: #### P TTAC #### [facility] IA [id number] [address] [place] [address] [place] Platelets (Bld) [#/Vol] 194 10*3/uL Normal 150-400 [facility] Comment on above: Order Comment: Speci men Type: BLOOD SPECIMEN Ordering Facility: [facility] Address: [address] [place] [address] Performed By: #### P TTAC #### [facility] IA [id number] [address] [place] [address] [facility] RBC (Bld) [#/Vol] 2.93 10*6/uL Low 4.20-6.00 [facility] Comment on above: Order Comment: Speci men Type: BLOOD SPECIMEN Ordering Facility: [facility] Address: [address] [place] [address] Performed By: #### P TTAC #### [facility] CLIA [id number] [address] [facility] [address] [place] WBC (Bld) [#/Vol] 6.52 10*3/uL Normal 3.70-11.00 [facility] Comment on above: Order Comment: Speci men Type: BLOOD SPECIMEN Ordering Facility: [facility] Address: [address] [place] [address] Performed By: #### P TTAC #### [facility] CLIA [id number] [address] [place] [address] [place] CNPNon 05-06-2024 CNPN Normal [facility] Comprehensive metabolic 2000 panelon 05-06-2024 Albumin [Mass/Vol] 3.6 g/dL Low 3.9-4.9 [facility] Comment on above: Order Comment: Speci men Type: BLOOD SPECIMEN Ordering Facility: [facility] Address: [address] [place] [address] Performed By: #### 2 4323-8, 39727-4, 48109-5 #### [facility] CLIA [id number] [address] [place] [address] [place] ALP [Catalytic activity/Vol] 92 U/L Normal 38-113 [facility] Comment on above: Order Comment: Speci men Type: BLOOD SPECIMEN Ordering Facility: [facility] Address: [address] [place] [address] Performed By: #### 2 4323-8, 67380-3, 43816-4 #### [facility] CLIA [id number] [address] [place] [address] [place] ALT [Catalytic activity/Vol] 12 U/L Normal 10-54 [facility] Comment on above: Order Comment: Speci men Type: BLOOD SPECIMEN Ordering Facility: [facility] Address: [address] [place] [address] Performed By: #### 2 4323-8, 32564-1, 73862-1 #### [facility] CLIA [id number] [address] [place] [address] [place] Anion gap [Moles/Vol] 13 mmol/L Normal 8-15 [facility] Comment on above: Order Comment: Speci men Type: BLOOD SPECIMEN Ordering Facility: [facility] Address: [address] [place] [address] Performed By: #### 2 4323-8, 92376-6, 71882-0 #### [facility] CLIA [id number] [address] [place] [address] [place] AST [Catalytic activity/Vol] 24 U/L Normal 14-40 [facility] Comment on above: Order Comment: Speci men Type: BLOOD SPECIMEN Ordering Facility: [facility] Address: [address] [place] [address] Performed By: #### 2 4323-8, 84621-9, 82601-0 #### [facility] CLIA [id number] [address] [place] [address] [place] Bilirubin [Mass/Vol] 0.8 mg/dL Normal 0.2-1.3 [facility] Comment on above: Order Comment: Speci men Type: BLOOD SPECIMEN Ordering Facility: [facility] Address: [address] [place] [address] Performed By: #### 2 4323-8, 24095-4, 58414-1 #### [facility] CLIA [id number] [address] [place] [address] [place] Calcium [Mass/Vol] 9.1 mg/dL Normal 8.5-10.2 [facility] Comment on above: Order Comment: Speci men Type: BLOOD SPECIMEN Ordering Facility: [facility] Address: [address] [place] [address] Performed By: #### 2 4323-8, 37343-4, 99725-9 #### [facility] CLIA [id number] [address] [facility] [address] [place] Chloride [Moles/Vol] 103 mmol/L Normal 98-107 [facility] Comment on above: Order Comment: Speci men Type: BLOOD SPECIMEN Ordering Facility: [facility] Address: [address] [place] [address] Performed By: #### 2 4323-8, 22032-4, 90272-4 #### [facility] CLIA [id number] [address] [place] [address] [place] CO2 [Moles/Vol] 24 mmol/L Normal 22-30 [facility] Comment on above: Order Comment: Rozi men Type: BLOOD SPECIMEN Ordering Facility: [facility] Address: [address] [place] [address] Performed By: #### 2 4323-8, 68609-8, 24344-9 #### [facility] CLIA [id number] [address] [place] [address] [place] Creatinine [Mass/Vol] 2.07 mg/dL High 0.73-1.22 [facility] Comment on above: Order Comment: Speci men Type: BLOOD SPECIMEN Ordering Facility: [facility] Address: [address] [place] [address] Performed By: #### 2 4323-8, 10426-4, 89916-3 #### [facility] CLIA [id number] [address] [facility] [address] [place] Creatinine and Glomerular filtration rate.predicted panel (S/P/Bld) 31 mL/min/1.73m??? Low >=60 [facility] Comment on above: Order Comment: Speci men Type: BLOOD SPECIMEN Ordering Facility: [facility] Address: [address] [place] [address] Result Comment: Etta mated Glomerular Filtration Rate [...] actual GFR. Performed By: #### 2 4323-8, 88163-2, 29921-7 #### [facility] CLIA [id number] [address] [place] [address] [place] Glucose [Mass/Vol] 105 mg/dL High 74-99 [facility] Comment on above: Order Comment: Dylan olvera Type: BLOOD SPECIMEN Ordering Facility: [facility] Address: [address] [place] [address] Result Comment: The [place] Diabetes Association (ADA) provides guidance for cutoff [...] Standards of Medical Care in Diabetes 2016, [place] [employer] Association. Diabetes Care. 2016.39(Suppl 1). Performed By: #### 2 4323-8, 87178-3, 55895-7 #### [facility] CLIA [id number] [address] [place] [address] [place] Potassium [Moles/Vol] 4.1 mmol/L Normal 3.7-5.1 [facility] Comment on above: Order Comment: Dylan olvera Type: BLOOD SPECIMEN Ordering Facility: [facility] Address: [address] [place] [address] Performed By: #### 2 4323-8, 12438-9, 12234-9 #### [facility] CLIA [id number] [address] [place] [address] [place] Protein [Mass/Vol] 6.2 g/dL Low 6.3-8.0 [facility] Comment on above: Order Comment: Speci men Type: BLOOD SPECIMEN Ordering Facility: [facility] Address: [address] [place] [address] Performed By: #### 2 4323-8, 00569-1, 44736-9 #### [facility] CLIA [id number] [address] [place] [address] [place] Sodium [Moles/Vol] 140 mmol/L Normal 136-144 [facility] Comment on above: Order Comment: Speci men Type: BLOOD SPECIMEN Ordering Facility: [facility] Address: [address] [place], [place] [address] Performed By: #### 2 4323-8, 85629-5, 18689-2 #### [facility] CLIA [id number] [address] [place] [address] [place] Urea nitrogen [Mass/Vol] 40 mg/dL High 9-24 [facility] Comment on above: Order Comment: Speci men Type: BLOOD SPECIMEN Ordering Facility: [facility] Address: [address] [place], [place] [address] Performed By: #### 2 4323-8, 32016-6, 03796-3 #### [facility] CLIA [id number] [address] [place] [address] [place] ECG COMPLETEon 05-06-2024 ECG COMPLETE Ventricular Rate : 6 9 BPM Atrial Rate : 0 BPM QRS Duration : 126 ms Q-T Interval : 429 ms QTC Calculation(Bazett) : 460 ms Calculated R [place] : -14 degrees Calculated T [place] : 158 degrees Atrial fibrillation Paired ventricular premature complexes Nonspecific intraventricular conduction delay Repol abnrm suggests ischemia, lateral leads Abnormal ECG 1829 NO STEMI Confirmed by DO OSWALD JOSEPH ([id number]), website/blog editor MULU GARDUNO ([id number]) on 05/07/2024 8:20:07 AM NAME : JOSÉ MIGUEL ANTONIO PID : [id number] : 1940 Gender : Male Race : ORD : [id number] Procedure Date : May 06 2024 18:28:15 Edit Date : May 07 2024 08:20:08 Diagnosis: Atrial fibrillation Paired ventricular premature complexes Nonspecific intraventricular conduction delay Repol abnrm suggests ischemia, lateral leads Abnormal ECG 1829 NO STEMI Confirmed by DO OSWALD JOSEPH ([id number]), website/blog editor MULU GARDUNO ([id number]) on 05/07/2024 8:20:07 AM Test Reason : Chest Pain Location : 302 : ED AVED-3 Overread By : DO OSWALD JOSEPH Edited By : MULU GARDUNO Referred By : , Acquired by : [id number], [facility] ED NOTEon 05-06-2024 ED NOTE HNO ID: [id number] Author: ENRRIQUE PARSONS RN Service: eHospital Author Type: Registered Nurse Type: ED Notes Filed: 05/06/2024 19:13 Note Text: Report given to INOCENTE Andrade. [facility] ED NOTE HNO ID: [id number] Author: ARTEMIO PALMA RN Service: Emergency Medicine Author Type: Registered Nurse Type: ED Notes Filed: 05/06/2024 19:10 Note Text: Report taken from Enrrique Castellano RN [facility] ED NOTE HNO ID: [id number] Author: DEVIKA WILEY RN Service: ? Author Type: Registered Nurse Type: ED Notes Filed: 05/06/2024 16:42 Note Text: Patient presents with c/o SANTILLAN increasing x several weeks. He had outpatient echo done [employer]PLIANCE [employer], but his daughter wanted him evaluated further. Patient very pale in triage, takes plavix, ASA, and xarelto. Denies CP, denies SOB at rest. VSS in triage, AANDOx4. [facility] ED PROV NOTEon 05-06-2024 ED PROV NOTE HNO ID: [id number] Author: JANET OSAWLD DO Service: Emergency Medicine Author Type: Physician [...] disease) No date: Heart failure, acute systolic ([facility]) No date: Hypertension No date: Hypothyroid No date: Myocardial infarct, old No date: Occlusion and stenosis of carotid artery without mention of cerebral infarction 2020: Prostate cancer ([facility]) 11/17/2012: PVD (peripheral vascular disease) ([facility]) 09/03/2022: Stroke (cerebrum) ([facility]) No date: Systolic heart failure ([facility]) No date: Thyroid disorder 04/26/2023: 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 kidney disease, unspecified CKD stage, unspecified whether longterm insulin use ([facility]) 04/28/2012: Ventricular tachycardia ([facility]) PAST SURGICAL HISTORY 2012: ANGIOGRAPHY, EXT CAROTID; [...] Disease Father - Heart Attack Father fatal NE at age 77 - Ischemic Heart Disease Brother CABGx6 first at age 72 - No Known Problems Maternal Grandmother - No Known Problems Maternal Grandfather - No Known Problems Paternal Grandmother - No Known Problems Paternal Grandfather - No Known Problems Daughter - No Known Problems Daughter - No Known Problems Daughter - other (Other) Other paternal cousin at age 50 of [place] Social History Tobacco Use - Smoking status: [...] 40 (*) (more content not included)... Normal [facility] ED Triage Noteon 05-06-2024 ED Triage Note HNO ID: [id number] Author: JENNY ALARCON MD Service: Emergency Medicine [...] bedside clinician. SIGNATURE: Jenny Alarcon MD Normal [facility] HIGH SENSITIVITY TROPONIN T (INITIAL)on 05-06-2024 Troponin T.cardiac High sensitivity method [Mass/Vol] 45 ng/L High <12 [facility] Comment on above: Order Comment: Rozi may Type: BLOOD SPECIMEN Ordering Facility: [facility] Address: [address] [place] [address] Performed By: #### L [id number] #### [facility] CLIA [id number] [address] [place] [address] [place] HIGH SENSITIVITY TROPONIN T (SECOND)on 05-06-2024 Troponin T.cardiac High sensitivity method [Mass/Vol] 43 ng/L High <[address] [place] [address] Comment on above: Order Comment: Dylan olvera Type: BLOOD SPECIMEN Ordering Facility: [facility] Address: [address] [place] [address] Performed By: #### 3 4528-0, PTTAC #### [facility] CLIA [id number] [address] [place] [address] [place] [facility] HIGH SENSITIVITY TROPONIN T (THIRD) 3 HRS AFTER INITIALon 05-06-2024 Troponin T.cardiac High sensitivity method [Mass/Vol] 45 ng/L High <[address] [place] [address] Comment on above: Order Comment: Dylan olvera Type: BLOOD SPECIMEN Ordering Facility: [facility] Address: [address] [place] [address] Performed By: #### L [id number] #### [facility] CLIA [id number] [place] [address] [place] HISTORY PHYSICALon 08-21-202 4 HISTORY PHYSICAL HNO ID: [id number] Author: CHERYL LEES MD Service: Hospital Medicine Author Type: Physician Type: H&P Filed: 05/06/2024 23:41 Note Text: DEPARTMENT OF HOSPITAL MEDICINE HISTORY AND PHYSICAL EXAM SERVICE DATE: 05/06/2024 SERVICE TIME: 6:57 PM Primary Care Physician: Samm Thompson MD NIGHT AND WEEKEND COVERAGE: Days: [phone], please contact via [employer] Secure Message Nights: [phone] 3rd floor: please page [facility]ist night cover #[phone] 4W: please page [facility]ist night cover #[phone] 5th floor: please page [facility] night cover #[phone] SDU (18:00 - 19:00): Please page #[phone] SDU (19:00 - 07:00): Please call E-Hospitalist at [phone] Subjective CHIEF COMPLAINT: generalized weakness and SANTILLAN [...] weakness and SANTILLAN. 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 PAST MEDICAL HISTORY 09/03/2022: Carotid stenosis, asymptomatic, bilateral No date: Chronic back pain Comment: stenosis of the back 09/03/2022: Chronic combined systolic and diastolic congestive heart failure ([facility]) No date: Dyslipidemia No date: GERD (gastroesophageal reflux disease) No date: Heart failure, acute systolic ([facility]) No date: Hypertension No date: Hypothyroid No date: Myocardial infarct, old No date: Occlusion and stenosis of carotid artery without mention of cerebral infarction 2020: Prostate cancer ([facility]) 11/17/2012: PVD (peripheral vascular disease) ([facility]) 09/03/2022: Stroke (cerebrum) ([facility]) No date: Systolic heart failure ([facility]) No date: Thyroid disorder 04/26/2023: 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 kidney disease, unspecified CKD stage, unspecified whether longterm insulin use ([facility]) 04/28/2012: Ventricular tachycardia ([facility]) PAST SURGICAL HISTORY 2012: ANGIOGRAPHY, EXT CAROTID; [...] Artery Disease Father Heart Attack Father fatal [place] at age 77 Ischemic Heart Disease Brother CABGx6 first at age 72 No Known Problems Maternal Grandmother No Known Problems Maternal Grandfather No Known Problems Paternal Grandmother No Known Problems Paternal Grandfather No Known Problems Daughter No Known Problems Daughter No Known Problems Daughter other (Other) Other paternal cousin at age 50 of [place] Social History Tobacco Use Smoking status: Former [...] succinate ER (more content not included)... Normal [facility] Magnesium [facility] 05-06 Magnesium [Mass/Vol] 2.5 mg/dL High 1.7-2.3 [facility] Comment on above: Order Comment: [facility] Type: BLOOD SPECIMEN Ordering Facility: [facility] Address: [address] [place] [address] Performed By: #### 2 4323-8, 08497-1, 51991-5 #### [facility] CLIA [id number] [place] [address] [place] NT-proBNP [facility] 05-06 Natriuretic peptide.B prohormone N-Terminal [Mass/Vol] 37411 pg/mL High <450 [facility] Comment on above: Order Comment: [facility] Type: BLOOD SPECIMEN Ordering Facility: [facility] Address: [address] [place] [address] Performed By: #### 2 4323-8, 22517-0, 43029-7 #### [facility] CLIA [id number] [place] [address] [place] XR CHEST 2V [...] New left pleural effusion with adjacent atelectasis Top Lift Compresser: LUZ MARIA Transcribe Date/Time: May 06 2024 5:37P Dictated by : ROSS FULTON DO This examination was interpreted and the report reviewed and electronically signed by: ROSS FULTON DO on May 06 2024 5:38PM EST [id number] Normal [facility] CNPTOUTREACHon 04-30-2024 CNPTOUTREA Normal [facility] CNPTOUTREACHon 04-29-2024 [facility] CNCOon 04-14-2024 CNCO Letter Text Normal [facility] Basic metabolic 2000 panelon 04-06-2024 Anion gap [Moles/Vol] 7 mmol/L Low 8-15 [facility] Comment on above: Order Comment: Speci men Type: BLOOD SPECIMENOrdering Facility: [facility] Address: [address] [place] [address] Performed By: #### 2 4321-2 ####[facility] [id number] [place] [address] Calcium [Mass/Vol] 9.9 mg/dL Normal 8.5-10.2 [facility] Comment on above: Order Comment: Speci men Type: BLOOD SPECIMENOrdering Facility: [facility] Address: [address] [place] [address] Performed By: #### 2 4321-2 ####[facility] LABCLIA [id number] [place] [address] Chloride [Moles/Vol] 106 mmol/L Normal 98-107 [facility] Comment on above: Order Comment: Speci men Type: BLOOD SPECIMENOrdering Facility: [facility] Address: [address] [place] [address] Performed By: #### 2 4321-2 ####[facility] LABCLIA [id number] [place] [address] CO2 [Moles/Vol] 27 mmol/L Normal 22-30 [facility] Comment on above: Order Comment: Speci men Type: BLOOD SPECIMENOrdering Facility: [facility] Address: [address] [place] [address] Performed By: #### 2 4321-2 ####[facility] LABCLIA [id number] [place] [address] Creatinine [Mass/Vol] 2.02 mg/dL High 0.73-1.22 [facility] Comment on above: Order Comment: Speci men Type: BLOOD SPECIMENOrdering Facility: [facility] Address: [address] [place] [address] Performed By: #### 2 4321-2 ####[facility] [id number] [place] [address] Creatinine and Glomerular filtration rate.predicted panel (S/P/Bld) 32 mL/min/1.73m??? Low >=60 [facility] Comment on above: Order Comment: Speci men Type: BLOOD SPECIMENOrdering Facility: [facility] Address: [address] [place] [address] Result Comment: Etta mated Glomerular Filtration Rate [...] actual GFR. Performed By: #### 2 4321-2 ####[facility] LABIA [id number] [place] [address] Glucose [Mass/Vol] 106 mg/dL High 74-99 [facility] Comment on above: Order Comment: Speci men Type: BLOOD SPECIMENOrdering Facility: [facility] Address: [address] [place], [place] [address] Result Comment: The [place] Diabetes Association (ADA) provides guidance for cutoff [...] Standards of Medical Care in Diabetes 2016, [place] Diabetes Association. Diabetes Care. 2016.39(Suppl 1). Performed By: #### 2 4321-2 ####[facility] LABIA [id number] [place] [address] Potassium [Moles/Vol] 4.6 mmol/L Normal 3.7-5.1 [facility] Comment on above: Order Comment: Speci men Type: BLOOD SPECIMENOrdering Facility: [facility] Address: [address] [place] [address] Performed By: #### 2 4321-2 ####[facility] LABIA [id number] [place] [address] Sodium [Moles/Vol] 140 mmol/L Normal 136-144 [facility] Comment on above: Order Comment: Speci men Type: BLOOD SPECIMENOrdering Facility: [facility] Address: [address] [place] [address] Performed By: #### 2 4321-2 ####[facility]CLIA [id number] [place] [address] Urea nitrogen [Mass/Vol] 53 mg/dL High 9-24 [facility] Comment on above: Order Comment: Speci men Type: BLOOD SPECIMENOrdering Facility: [facility] Address: [address] [place] [address] Performed By: #### 2 4321-2 ####[facility] LABCLIA [id number] [place] [address] NT-proBNP [facility] 04-06 Natriuretic peptide.B prohormone N-Terminal [Mass/Vol] 50491 pg/mL High <450 [facility] Comment on above: Order Comment: Speci men Type: BLOOD SPECIMENOrdering Facility: [facility] Address: [address] [place] [address] Performed By: #### 3 3762-6 ####[facility] LABCLIA [id number] [place] [id number] [place] CNPNon 04-03-2024 CNPN Normal [facility] CNPNon 04-01-2024 CNPN Normal [facility] CNOVon 03-31-2024 CNOV Normal [facility] Basic metabolic 2000 panelon 03-30-2024 Anion gap [Moles/Vol] 12 mmol/L Normal 8-15 [facility] Comment on above: Order Comment: Speci men Type: BLOOD SPECIMENOrdering Facility: [facility] Address: [address] [place] [address] Performed By: #### 2 4321-2 ####[facility] LABCLIA [id number] [address] [address] [place] Calcium [Mass/Vol] 9.8 mg/dL Normal 8.5-10.2 [facility] Comment on above: Order Comment: Speci men Type: BLOOD SPECIMENOrdering Facility: [facility] Address: [address] [place] [address] Performed By: #### 2 4321-2 ####[facility] LABCLIA [id number] [place] [address] [place] Chloride [Moles/Vol] 103 mmol/L Normal 98-107 [facility] Comment on above: Order Comment: Speci men Type: BLOOD SPECIMENOrdering Facility: [facility] Address: [address] [place] [address] Performed By: #### 2 4321-2 ####[facility] LABCLIA [id number] [place] [address] [place] CO2 [Moles/Vol] 26 mmol/L Normal 22-30 [facility] Comment on above: Order Comment: Speci men Type: BLOOD SPECIMENOrdering Facility: [facility] Address: [address] [place] [address] Performed By: #### 2 4321-2 ####[facility] LABCLIA [id number] [place] [address] [place] Creatinine [Mass/Vol] 2.01 mg/dL High 0.73-1.22 [facility] Comment on above: Order Comment: Speci men Type: BLOOD SPECIMENOrdering Facility: [facility] Address: [address] [place] [address] Performed By: #### 2 4321-2 ####[facility] LABIA [id number] [place] [address] [place] Creatinine and Glomerular filtration rate.predicted panel (S/P/Bld) 33 mL/min/1.73m??? Low >=60 [facility] Comment on above: Order Comment: Speci men Type: BLOOD SPECIMENOrdering Facility: [facility] Address: [address] [place] [address] Result Comment: Etta mated Glomerular Filtration Rate [...] actual GFR. Performed By: #### 2 4321-2 ####[facility] LABIA [id number] [place] [address] [place] Glucose [Mass/Vol] 93 mg/dL Normal 74-99 [facility] Comment on above: Order Comment: Dylan olvera Type: BLOOD SPECIMENOrdering Facility: [facility] Address: [address] [place] [address] Result Comment: The [place] Diabetes Association (ADA) provides guidance for cutoff [...] Standards of Medical Care in Diabetes 2016, [place] Diabetes Association. Diabetes Care. 2016.39(Suppl 1). Performed By: #### 2 4321-2 ####[facility] LABIA [id number] [place] [address] [place] Potassium [Moles/Vol] 5.1 mmol/L Normal 3.7-5.1 [facility] Comment on above: Order Comment: Dylan olvera Type: BLOOD SPECIMENOrdering Facility: [facility] Address: [address] [place] [address] Performed By: #### 2 4321-2 ####[facility] LABIA [id number] [place] [address] [place] Sodium [Moles/Vol] 141 mmol/L Normal 136-144 [facility] Comment on above: Order Comment: Dylan olvera Type: BLOOD SPECIMENOrdering Facility: [facility] Address: [address] [place] [address] Performed By: #### 2 4321-2 ####[facility] LABCLIA [id number] [address] [address] [place] Urea nitrogen [Mass/Vol] 29 mg/dL High 9-24 [facility] Comment on above: Order Comment: Speci men Type: BLOOD SPECIMENOrdering Facility: [facility] Address: [address] [place], [place] [address] Performed By: #### 2 4321-2 ####[facility] LABCLIA [id number] [address] [address] [place] CNOVon 03-30-2024 CNOV Normal [facility] CNPNon 03-30-2024 CNPN Normal [facility] ECG COMPLETEon 03-30-2024 ECG COMPLETE Normal [facility] Basic metabolic 2000 panelon 03-24-2024 Anion gap [Moles/Vol] 9 mmol/L Normal 8-15 [facility] Comment on above: Order Comment: Speci men Type: BLOOD SPECIMENOrdering Facility: [facility] Address: [address] [place] [address] Performed By: #### 2 4321-2 ####RASHAUNWYBHARATHI [facility] LABIA [id number] [place] [address] Calcium [Mass/Vol] 10.0 mg/dL Normal 8.5-10.2 [facility] Comment on above: Order Comment: Speci men Type: BLOOD SPECIMENOrdering Facility: [facility] Address: [address] [place] [address] Performed By: #### 2 4321-2 ####[facility]ENTER[facility]AR[facility] LABIA [id number] [place] [address] Chloride [Moles/Vol] 104 mmol/L Normal 98-107 [facility] Comment on above: Order Comment: Speci men Type: BLOOD SPECIMENOrdering Facility: [facility] Address: [address] [place] [address] Performed By: #### 2 4321-2 ####[facility] LABCLIA [id number] [place] [address] CO2 [Moles/Vol] 28 mmol/L Normal 22-30 [facility] Comment on above: Order Comment: Speci men Type: BLOOD SPECIMENOrdering Facility: [facility] Address: [address] [place] [address] Performed By: #### 2 4321-2 ####[facility] LABCLIA [id number] [place] [address] Creatinine [Mass/Vol] 2.29 mg/dL High 0.73-1.22 [facility] Comment on above: Order Comment: Speci men Type: BLOOD SPECIMENOrdering Facility: [facility] Address: [address] [place] [address] Performed By: #### 2 4321-2 ####[facility] LABCLIA [id number] [place] [address] Creatinine and Glomerular filtration rate.predicted panel (S/P/Bld) 28 mL/min/1.73m??? Low >=60 [facility] Comment on above: Order Comment: Speci men Type: BLOOD SPECIMENOrdering Facility: [facility] Address: [address] [place] [address] Result Comment: Etta mated Glomerular Filtration Rate [...] actual GFR. Performed By: #### 2 4321-2 ####[facility] LABCLIA [id number] [place] [address] Glucose [Mass/Vol] 109 mg/dL High 74-99 [facility] Comment on above: Order Comment: Speci men Type: BLOOD SPECIMENOrdering Facility: [facility] Address: [address] [place] [address] Result Comment: The [place] Diabetes Association (ADA) provides guidance for cutoff [...] Standards of Medical Care in Diabetes 2016, [place] Diabetes Association. Diabetes Care. 2016.39(Suppl 1). Performed By: #### 2 4321-2 ####[facility] LABCLIA [id number] [place] [address] Potassium [Moles/Vol] 4.7 mmol/L Normal 3.7-5.1 [facility] Comment on above: Order Comment: Speci men Type: BLOOD SPECIMENOrdering Facility: [facility] Address: [address] [place] [address] Performed By: #### 2 4321-2 ####[facility] LABCLIA [id number] [place] [address] Sodium [Moles/Vol] 141 mmol/L Normal 136-144 [facility] Comment on above: Order Comment: Speci men Type: BLOOD SPECIMENOrdering Facility: [facility] Address: [address] [place] [id number] Performed By: #### 2 1-2 ####[facility] LABCLIA [id number] [place] [address] Urea nitrogen [Mass/Vol] 31 mg/dL High 9-24 [facility] Comment on above: Order Comment: Speci men Type: BLOOD SPECIMENOrdering Facility: [facility] Address: [address] [place] [address] Performed By: #### 2 4321-2 ####[facility] LABCLIA [id number] [place] [address] CBC panel Auto (Bld)on 03-24 Erythrocyte distribution width (RBC) [Ratio] 18.8 % High 11.5-15.0 [facility] Comment on above: Order Comment: Speci men Type: BLOOD SPECIMENOrdering Facility: [facility] Address: [address] [place] [address] Performed By: #### 5 8410-2 ####[facility] LABCLIA [id number] [place] [address] Hematocrit (Bld) [Volume fraction] 37.7 % Low 39.0-51.0 [facility] Comment on above: Order Comment: Speci men Type: BLOOD SPECIMENOrdering Facility: [facility] Address: [address] [place] [address] Performed By: #### 5 8410-2 ####[facility] LABIA [id number] [place] [address] Hemoglobin (Bld) [Mass/Vol] 11.3 g/dL Low 13.0-17.0 [facility] Comment on above: Order Comment: Speci men Type: BLOOD SPECIMENOrdering Facility: [facility] Address: [address] [place] [address] Performed By: #### 5 8410-2 ####[facility] LABCLIA [id number] [place] [address] MCH (RBC) [Entitic mass] 27.6 pg Normal 26.0-34.0 [facility] Comment on above: Order Comment: Speci men Type: BLOOD SPECIMENOrdering Facility: [facility] Address: [address] [place] [address] Performed By: #### 5 8410-2 ####[facility] LABCLIA [id number] [place] [address] MCHC (RBC) [Mass/Vol] 30.0 g/dL Low 30.5-36.0 [facility] Comment on above: Order Comment: Speci men Type: BLOOD SPECIMENOrdering Facility: [facility] Address: [address] [place] [address] Performed By: #### 5 8410-2 ####[facility] LABCLIA [id number] [place] [address] MCV (RBC) [Entitic vol] 92.0 fL Normal 80.0-100.0 [facility] Comment on above: Order Comment: Speci men Type: BLOOD SPECIMENOrdering Facility: [facility] Address: [address] [place] [address] Performed By: #### 5 8410-2 ####[facility] LABCLIA [id number] [place] [address] Nucleated RBC (Bld) [#/Vol] 10*3/uL Normal <0.01 [facility] Comment on above: Order Comment: Speci men Type: BLOOD SPECIMENOrdering Facility: [facility] Address: [address] [place] [address] Performed By: #### 5 8410-2 ####[facility] LABIA [id number] [place] [address] Platelet mean volume (Bld) [Entitic vol] 9.4 fL Normal 9.0-12.7 [facility] Comment on above: Order Comment: Speci men Type: BLOOD SPECIMENOrdering Facility: [facility] Address: [address] [place] [address] Performed By: #### 5 8410-2 ####[facility] LABIA [id number] [place] [address] Platelets (Bld) [#/Vol] 162 10*3/uL Normal 150-400 [facility] Comment on above: Order Comment: Speci men Type: BLOOD SPECIMENOrdering Facility: [facility] Address: [address] [place] [address] Performed By: #### 5 8410-2 ####[facility] LABCLIA [id number] [place] [address] RBC (Bld) [#/Vol] 4.10 10*6/uL Low 4.20-6.00 [facility] Comment on above: Order Comment: Speci men Type: BLOOD SPECIMENOrdering Facility: [facility] Address: [address] [place] [address] Performed By: #### 5 8410-2 ####[facility] LABCLIA [id number] [place] [address] WBC (Bld) [#/Vol] 5.95 10*3/uL Normal 3.70-11.00 [facility] Comment on above: Order Comment: Speci men Type: BLOOD SPECIMENOrdering Facility: [facility] Address: [address] [place] [address] Performed By: #### 5 8410-2 ####[facility] LABCLIA [id number] [place] [address] PSA SerPl-mCncon 03-24-2024 Prostate specific Ag [Mass/Vol] ng/mL Normal <2.60 [facility] Comment on above: Order Comment: Speci men Type: BLOOD SPECIMENOrdering Facility: [facility] Address: [address] [place] [address] Result Comment: Tota l PSA test methodology used is the Electrochemiluminescence Immunoassay by [employer]. Total PSA values by differing methodologies cannot be interchanged. Performed By: #### 2 857-1 ####[facility] LABCLIA [id number] [facility] [id number] [address] [place] TESTOSTERONE, FREE AND TOTAL on 03-24-2024 TESTOSTERONE, FREE, S 1.46 ng/dL Low 2.88-10.5 [facility] Comment on above: Order Comment: Speci men Type: BLOOD SPECIMENOrdering Facility: [facility] Address: [address] [place] [address] Result Comment: ---- ADDITIONAL INFORMATION This test was developed and its performance characteristicsdetermined by [facility] in a manner consistent with CLIArequirements. This test has not been cleared or approved bythe U.S. Food and Drug Administration. Performed By: #### T FTEST ####[facility] LABCLIA [id number] [place] [address] TESTOSTERONE, TOTAL, S 80 ng/dL Low 240-950 [facility] Comment on above: Order Comment: Speci men Type: BLOOD SPECIMENOrdering Facility: [facility] Address: [address] [place] [address] Result Comment: ---- ADDITIONAL INFORMATION Testing performed by Liquid Chromatography-Tandem MassSpectrometry (LC-MS/MS).This test was developed and its performance characteristicsdetermined by [facility] in a manner consistent with CLIArequirements. This test has not been cleared or approved bythe U.S. Food and Drug Administration.Test Performed by:[address] Director: Bambi Singh Ph.D.; CLIA# [id number] Performed By: #### T FTEST ####[facility] LABCLIA [id number] [place] [address] CNPTOUTREACHon 03-06-2024 CNPTOUTREACH Normal [facility] CASE MANAGEMon 03-05-2024 CASE MANAGEM Normal [facility] CNDSon 03-05-2024 CNDS Normal [facility] NURSING PROGon 03-05-2024 NURSING PROG Normal [facility] US CAROTID LTon 03-05-2024 US CAROTID LT Normal [facility] ANES POSTPROC EVALon 024 ANES POSTPROC EVAL Normal [facility] ANES PRE-OPon 03-04-2024 ANES PRE-OP Normal [facility] ARTERIAL BLOOD GASES WITH IO NIZED MAGNESIUMon 03-04-2024 Base excess Calc (Bld) [Moles/Vol] 0 mmol/L Normal 0-2 [facility] Comment on above: Order Comment: Speci men Type: ARTERIAL BLOOD SPECIMENOrdering Facility: [facility] Address: [address] [place] [address] Performed By: #### A LLMG ####[facility] LABCLIA [id number] [place] [address] [place] Calcium.ionized (Bld) [Mass/Vol] 1.29 mmol/L Normal 1.08-1.30 [facility] Comment on above: Order Comment: Speci men Type: ARTERIAL BLOOD SPECIMENOrdering Facility: [facility] Address: [address] [place] [address] Performed By: #### A LLMG ####[facility] LABCLIA [id number] [place] [address] [place] Calcium.ionized adjusted to pH 7.4 (BldA) [Moles/Vol] 1.25 mmol/L Normal 1.08-1.30 [facility] Comment on above: Order Comment: Speci men Type: ARTERIAL BLOOD SPECIMENOrdering Facility: [facility] Address: [address] [place] [address] Performed By: #### A LLMG ####[facility] LABCLIA [id number] [place] [address] [place] Carboxyhemoglobin (BldA) [Mass fraction] 1.4 % Normal 0.0-2.0 [facility] Comment on above: Order Comment: Speci men Type: ARTERIAL BLOOD SPECIMENOrdering Facility: [facility] Address: [address] [place] [address] Result Comment: Carb oxyhemoglobin Reference Range for Smokers: 2.0-8.0% Performed By: #### A LLMG ####[facility] [facility] LABCL[facility] [id number] [place] [address] [place] CO2 (Bld) [Partial pressure] 49 mm Hg High 36-46 [facility] Comment on above: Order Comment: Speci men Type: ARTERIAL BLOOD SPECIMENOrdering Facility: [facility] Address: [address] [place] [address] Performed By: #### A LLMG ####[facility] LABCLIA [id number] [place] [address] [place] CO2 adjusted to patient's actual temperature (Bld) [Partial pressure] 49 mmHg High 36-46 [facility] Comment on above: Order Comment: Speci men Type: ARTERIAL BLOOD SPECIMENOrdering Facility: [facility] Address: [address] [place] [address] Performed By: #### A LLMG ####[facility] LABCLIA [id number] [place] [address] [place] Glucose [Mass/Vol] 105 mg/dL Normal 60-105 [facility] Comment on above: Order Comment: Speci men Type: ARTERIAL BLOOD SPECIMENOrdering Facility: [facility] Address: [address] [place] [address] Performed By: #### A LLMG ####[facility] LABCLIA [id number] [place] [address] [place] HCO3 (Bld) [Moles/Vol] 26 mmol/L Normal 22-26 [facility] Comment on above: Order Comment: Speci men Type: ARTERIAL BLOOD SPECIMENOrdering Facility: [facility] Address: [address] [place] [address] Performed By: #### A LLMG ####[facility] LABCLIA [id number] [place] [address] [place] Hematocrit (Bld) [Volume fraction] 36.8 % Low 39.0-51.0 [facility] Comment on above: Order Comment: Speci men Type: ARTERIAL BLOOD SPECIMENOrdering Facility: [facility] Address: [address] [place], [place] [id number] Performed By: #### A LLMG ####[facility] LABCLIA [id number] [place] [address] [place] Hemoglobin (Bld) [Mass/Vol] 11.9 g/dL Low 13.0-17.0 [facility] Comment on above: Order Comment: Speci men Type: ARTERIAL BLOOD SPECIMENOrdering Facility: [facility] Address: [address] [place] [address] Performed By: #### A LLMG ####[facility] LABIA [id number] [place] [address] [place] Lactate [Moles/Vol] 0.7 mmol/L Normal 0.5-2.2 [facility] Comment on above: Order Comment: Speci men Type: ARTERIAL BLOOD SPECIMENOrdering Facility: [facility] Address: [address] [place] [address] Performed By: #### A LLMG ####[facility] LABIA [id number] [place] [address] [place] Magnesium [Moles/Vol] 0.65 mmol/L High 0.45-0.60 [facility] Comment on above: Order Comment: Speci men Type: ARTERIAL BLOOD SPECIMENOrdering Facility: [facility] Address: [address] [place] [address] Performed By: #### A LLMG ####[facility] LABIA [id number] [place] [address] [place] Methemoglobin (Bld) [Mass fraction] 0.8 % Normal 0.0-1.5 [facility] Comment on above: Order Comment: Speci men Type: ARTERIAL BLOOD SPECIMENOrdering Facility: [facility] Address: [address] [place] [address] Performed By: #### A LLMG ####[facility] LABIA [id number] [id number] [place] [address] [place] Oxygen (Bld) [Partial pressure] 129 mm Hg High 85-95 [facility] Comment on above: Order Comment: Speci men Type: ARTERIAL BLOOD SPECIMENOrdering Facility: [facility] Address: [address] [place], [place] [address] Performed By: #### A LLMG ####[facility] LABCLIA [id number] [place] [id number] [place] Oxygen adjusted to patient's actual temperature (Bld) [Partial pressure] 129 mmHg High 85-95 [facility] Comment on above: Order Comment: Speci men Type: ARTERIAL BLOOD SPECIMENOrdering Facility: [facility] Address: [address] [place] [address] Performed By: #### A LLMG ####[facility] LABCLIA [id number] [place] [address] [place] Oxyhemoglobin (BldA) [Mass fraction] 97 % Normal 95-98 [facility] Comment on above: Order Comment: Speci men Type: ARTERIAL BLOOD SPECIMENOrdering Facility: [facility] Address: [address] [place] [address] Performed By: #### A LLMG ####[facility] LABCLIA [id number] [place] [id number] [place] pH (Bld) 7.34 [pH] Low 7.35-7.45 [facility] Comment on above: Order Comment: Speci men Type: ARTERIAL BLOOD SPECIMENOrdering Facility: [facility] Address: [address] [place] [address] Performed By: #### A LLMG ####[facility] LABCLIA [id number] [place] [address] [place] pH adjusted to patient's actual temperature (Bld) 7.34 Low 7.35-7.45 [facility] Comment on above: Order Comment: Speci men Type: ARTERIAL BLOOD SPECIMENOrdering Facility: [facility] Address: [address] [place] [address] Performed By: #### A LLMG ####[facility] LABCLIA [id number] [place] [address] [place] Potassium [Moles/Vol] 3.9 mmol/L Normal 3.5-5.0 [facility] Comment on above: Order Comment: Speci men Type: ARTERIAL BLOOD SPECIMENOrdering Facility: [facility] Address: [address] [place] [address] Performed By: #### A LLMG ####[facility] LABIA [id number] [place] [address] [place] Sodium [Moles/Vol] 137 mmol/L Normal 136-144 [facility] Comment on above: Order Comment: Speci men Type: ARTERIAL BLOOD SPECIMENOrdering Facility: [facility] Address: [address] [place] [address] Performed By: #### A LLMG ####[facility] LABIA [id number] [place] [address] [place] ASPIRIN/CLOPIDOGREL RESISTAN CEon 03-04-2024 Platelet aggregation ADP induced High dose (PRP) [Rel units/Vol] 17 % Max Low 65-93 [facility] Comment on above: Order Comment: Speci men Type: BLOOD SPECIMENOrdering Facility: [facility] Address: [address] [place] [address] Performed By: #### A SPCLP ####[facility] LABIA [id number] [place] [address] [place] Platelet aggregation arachidonate induced 500 ug/mL (PRP) [Rel units/Vol] 22 % Max Low 75-100 [facility] Comment on above: Order Comment: Speci men Type: BLOOD SPECIMENOrdering Facility: [facility] Address: [address] [place] [address] Performed By: #### A SPCLP ####[facility] LABCLIA [id number] [place] [address] [place] BRIEF OP NOTon 03-04-2024 BRIEF OP NOT Normal [facility] CASE MANAGEMon 03-04-2024 CASE MANAGEM Normal [facility] CBC panel Auto (Bld)on 03-04 Erythrocyte distribution width (RBC) [Ratio] 18.7 % High 11.5-15.0 [facility] Comment on above: Order Comment: Speci men Type: BLOOD SPECIMENOrdering Facility: [facility] Address: [address] [place] [address] Performed By: #### 5 8410-2 ####[facility] LABCLIA [id number] [place] [address] [place] Hematocrit (Bld) [Volume fraction] 39.7 % Normal 39.0-51.0 [facility] Comment on above: Order Comment: Speci men Type: BLOOD SPECIMENOrdering Facility: [facility] Address: [address] [place] [address] Performed By: #### 5 8410-2 ####[facility] LABCLIA [id number] [place] [address] [place] Hemoglobin (Bld) [Mass/Vol] 12.3 g/dL Low 13.0-17.0 [facility] Comment on above: Order Comment: Speci men Type: BLOOD SPECIMENOrdering Facility: [facility] Address: [address] [place] [address] Performed By: #### 5 8410-2 ####[facility] LABCLIA [id number] [place] [address] [place] MCH (RBC) [Entitic mass] 27.5 pg Normal 26.0-34.0 [facility] Comment on above: Order Comment: Speci men Type: BLOOD SPECIMENOrdering Facility: [facility] Address: [address] [place] [address] Performed By: #### 5 8410-2 ####[facility] LABCLIA [id number] [place] [address] [place] MCHC (RBC) [Mass/Vol] 31.0 g/dL Normal 30.5-36.0 [facility] Comment on above: Order Comment: Speci men Type: BLOOD SPECIMENOrdering Facility: [facility] Address: [address] [place] [address] Performed By: #### 5 8410-2 ####[facility] LABIA [id number] [place] [address] [place] MCV (RBC) [Entitic vol] 88.8 fL Normal 80.0-100.0 [facility] Comment on above: Order Comment: Speci men Type: BLOOD SPECIMENOrdering Facility: [facility] Address: [address] [place] [address] Performed By: #### 5 8410-2 ####[facility] [id number] [place] [address] [place] Nucleated RBC (Bld) [#/Vol] 10*3/uL Normal <0.01 [facility] Comment on above: Order Comment: Speci men Type: BLOOD SPECIMENOrdering Facility: [facility] Address: [address] [place] [address] Performed By: #### 5 8410-2 ####[facility] [id number] [place] [address] [place] Platelet mean volume (Bld) [Entitic vol] 10.1 fL Normal 9.0-12.7 [facility] Comment on above: Order Comment: Speci men Type: BLOOD SPECIMENOrdering Facility: [facility] Address: [address] [place] [address] Performed By: #### 5 8410-2 ####[facility] LABIA [id number] [place] [address] [place] Platelets (Bld) [#/Vol] 168 10*3/uL Normal 150-400 [facility] Comment on above: Order Comment: Speci men Type: BLOOD SPECIMENOrdering Facility: [facility] Address: [address] [place] [address] Performed By: #### 5 8410-2 ####[facility] LABCLIA [id number] [place] [address] [place] RBC (Bld) [#/Vol] 4.47 10*6/uL Normal 4.20-6.00 [facility] Comment on above: Order Comment: Speci men Type: BLOOD SPECIMENOrdering Facility: [facility] Address: [address] [place] [address] Performed By: #### 5 8410-2 ####[facility] LABCLIA [id number] [place] [address] [place] WBC (Bld) [#/Vol] 5.30 10*3/uL Normal 3.70-11.00 [facility] Comment on above: Order Comment: Speci men Type: BLOOD SPECIMENOrdering Facility: [facility] Address: [address] [place] [address] Performed By: #### 5 8410-2 ####[facility] LABCLIA [id number] [place] [address] [place] IR CAROTIDon 03-04-2024 IR CAROTID Normal [facility] IR CAROTID CERVICALon 2023 IR CAROTID CERVICAL Normal [facility] IR NEUROVASCULAR STENTon IR NEUROVASCULAR STENT Normal [facility] MRI BRAIN WO IVCONon 024 MRI BRAIN WO IVCON Normal [facility] NURSING PROGon 03-04-2024 NURSING PROG Normal [facility] Renal function 2000 panelon 03-04-2024 Albumin [Mass/Vol] 3.3 g/dL Low 3.9-4.9 [facility] Comment on above: Order Comment: Speci men Type: BLOOD SPECIMENOrdering Facility: [facility] Address: [address] [place], [place] [address] Performed By: #### 2 4362-6 ####[facility] LABCLIA [id number] [place] [address] [place] Anion gap [Moles/Vol] 13 mmol/L Normal 8-15 [facility] Comment on above: Order Comment: Speci men Type: BLOOD SPECIMENOrdering Facility: [facility] Address: [address] [place] [address] Performed By: #### 2 4362-6 ####[facility] LABCLIA [id number] [place] [address] [place] Calcium [Mass/Vol] 9.6 mg/dL Normal 8.5-10.2 [facility] Comment on above: Order Comment: Speci men Type: BLOOD SPECIMENOrdering Facility: [facility] Address: [address] [place] [address] Performed By: #### 2 4362-6 ####[facility] LABCLIA [id number] [place] [address] [place] Chloride [Moles/Vol] 101 mmol/L Normal 98-107 [facility] Comment on above: Order Comment: Speci men Type: BLOOD SPECIMENOrdering Facility: [facility] Address: [address] [place] [address] Performed By: #### 2 4362-6 ####[facility] LABCLIA [id number] [place] [address] [place] CO2 [Moles/Vol] 23 mmol/L Normal 22-30 [facility] Comment on above: Order Comment: Speci men Type: BLOOD SPECIMENOrdering Facility: [facility] Address: [address] [place] [address] Performed By: #### 2 4362-6 ####[facility] LABCLIA [id number] [place] [address] [place] Creatinine [Mass/Vol] 1.91 mg/dL High 0.73-1.22 [facility] Comment on above: Order Comment: Dylan olvera Type: BLOOD SPECIMENOrdering Facility: [facility] Address: [address] [place] [address] Performed By: #### 2 4362-6 ####[facility] LABCLIA [id number] [place] [address] [place] Creatinine and Glomerular filtration rate.predicted panel (S/P/Bld) 35 mL/min/1.73m??? Low >=60 [facility] Comment on above: Order Comment: Dylan olvera Type: BLOOD SPECIMENOrdering Facility: [facility] Address: [address] [place] [address] Result Comment: Etta mated Glomerular Filtration Rate [...] actual GFR. Performed By: #### 2 4362-6 ####[facility] LABCLIA [id number] [place] [address] [place] Glucose [Mass/Vol] 84 mg/dL Normal 74-99 [facility] Comment on above: Order Comment: Dylan olvera Type: BLOOD SPECIMENOrdering Facility: [facility] Address: [address] [place] [address] Result Comment: The [place] [employer] (ADA) provides guidance for cutoff [...] Standards of Medical Care in Diabetes 2016, [place] [employer]. Diabetes Care. 2016.39(Suppl 1). Performed By: #### 2 4362-6 ####[facility] LABCLIA [id number] [address] [address] [place] Phosphate [Mass/Vol] 3.9 mg/dL Normal 2.7-4.8 [facility] Comment on above: Order Comment: Speci men Type: BLOOD SPECIMENOrdering Facility: [facility] Address: [address] [place] [address] Performed By: #### 2 4362-6 ####[facility] LABIA [id number] [place] [address] [place] Potassium [Moles/Vol] 4.0 mmol/L Normal 3.7-5.1 [facility] Comment on above: Order Comment: Speci men Type: BLOOD SPECIMENOrdering Facility: [facility] Address: [address] [place] [address] Performed By: #### 2 4362-6 ####[facility] LABIA [id number] [place] [address] [place] Sodium [Moles/Vol] 137 mmol/L Normal 136-144 [facility] Comment on above: Order Comment: Speci men Type: BLOOD SPECIMENOrdering Facility: [facility] Address: [address] [place] [address] Performed By: #### 2 4362-6 ####[facility] LABCLIA [id number] [place] [id number] [place] Urea nitrogen [Mass/Vol] 27 mg/dL High 9-24 [facility] Comment on above: Order Comment: Speci men Type: BLOOD SPECIMENOrdering Facility: [facility] Address: [address] [place] [address] Performed By: #### 2 4362-6 ####[facility] LABIA [id number] [place] [address] [place] ALLIED HEALTHon 03-03-2024 ALLIED HEALTH HNO ID: [id number] Author: FERMIN MIGUEL Chaplain Service: Spiritual Care Author Type: Type: Allied Health Filed: 03/03/2024 10:38 Note Text: Accepted anoint.,bless. Normal [facility] CASE MANAGEMon 03-03-2024 CASE MANAGEM Normal [facility] CBC panel Auto (Bld)on 03-03 Erythrocyte distribution width (RBC) [Ratio] 18.6 % High 11.5-15.0 [facility] Comment on above: Order Comment: Speci men Type: BLOOD SPECIMENOrdering Facility: [facility] Address: [address] [place] [address] Performed By: #### 5 8410-2 ####[facility] LABIA [id number] [place] [address] [place] Hematocrit (Bld) [Volume fraction] 39.3 % Normal 39.0-51.0 [facility] Comment on above: Order Comment: Speci men Type: BLOOD SPECIMENOrdering Facility: [facility] Address: [address] [place] [address] Performed By: #### 5 8410-2 ####[facility] LABIA [id number] [place] [address] [place] Hemoglobin (Bld) [Mass/Vol] 12.3 g/dL Low 13.0-17.0 [facility] Comment on above: Order Comment: Speci men Type: BLOOD SPECIMENOrdering Facility: [facility] Address: [address] [place] [address] Performed By: #### 5 8410-2 ####[facility] LABIA [id number] [place] [address] [place] MCH (RBC) [Entitic mass] 27.5 pg Normal 26.0-34.0 [facility] Comment on above: Order Comment: Speci men Type: BLOOD SPECIMENOrdering Facility: [facility] Address: [address] [place] [address] Performed By: #### 5 8410-2 ####[facility] LABIA [id number] [place] [address] [place] MCHC (RBC) [Mass/Vol] 31.3 g/dL Normal 30.5-36.0 [facility] Comment on above: Order Comment: Speci men Type: BLOOD SPECIMENOrdering Facility: [facility] Address: [address] [place] [address] Performed By: #### 5 8410-2 ####[facility] LABIA [id number] [place] [address] [place] MCV (RBC) [Entitic vol] 87.7 fL Normal 80.0-100.0 [facility] Comment on above: Order Comment: Speci men Type: BLOOD SPECIMENOrdering Facility: [facility] Address: [address] [place] [address] Performed By: #### 5 8410-2 ####[facility] LABIA [id number] [place] [address] [place] Nucleated RBC (Bld) [#/Vol] 10*3/uL Normal <0.01 [facility] Comment on above: Order Comment: Speci men Type: BLOOD SPECIMENOrdering Facility: [facility] Address: [address] [place] [address] Performed By: #### 5 8410-2 ####[facility] LABIA [id number] [place] [address] [place] Platelet mean volume (Bld) [Entitic vol] 10.3 fL Normal 9.0-12.7 [facility] Comment on above: Order Comment: Speci men Type: BLOOD SPECIMENOrdering Facility: [facility] Address: [address] [place] [address] Performed By: #### 5 8410-2 ####[facility] LABIA [id number] [place] [address] [place] Platelets (Bld) [#/Vol] 174 10*3/uL Normal 150-400 [facility] Comment on above: Order Comment: Speci men Type: BLOOD SPECIMENOrdering Facility: [facility] Address: [address] [place] [address] Performed By: #### 5 8410-2 ####[facility] [id number] [place] [address] [place] RBC (Bld) [#/Vol] 4.48 10*6/uL Normal 4.20-6.00 [facility] Comment on above: Order Comment: Speci men Type: BLOOD SPECIMENOrdering Facility: [facility] Address: [address] [place] [address] Performed By: #### 5 8410-2 ####[facility] [id number] [place] [address] [place] WBC (Bld) [#/Vol] 5.79 10*3/uL Normal 3.70-11.00 [facility] Comment on above: Order Comment: Speci men Type: BLOOD SPECIMENOrdering Facility: [facility] Address: [address] [place] [address] Performed By: #### 5 8410-2 ####[facility] [id number] [place] [address] [place] Fact Xa PPP-aCncon 4 Coagulation factor X activated act Coag Qn (PPP) 0.31 IU/mL High <0.10 [facility] Comment on above: Order Comment: Speci men Type: BLOOD SPECIMENOrdering Facility: [facility] Address: [address] [place] [address] Result Comment: The recommended therapeutic range for treatment of venous and arterial thrombosis with intravenous unfractionated heparin is an anti Xa activity level of 0.3 to 0.7 IU/mL. In patients with concomitant therapy with thrombolytic agents and/or platelet glycoprotein IIb/IIIa antagonists, the recommended therapeutic range is an anti Xa activity level of 0.2 to 0.5 IU/mL. Performed By: #### P TTAC, 3217-7 ####[facility] LABCLIA [id number] [place] [address] [place] Magnesium SerPl-mCncon 03-03 Magnesium [Mass/Vol] 2.3 mg/dL Normal 1.7-2.3 [facility] Comment on above: Order Comment: Speci men Type: BLOOD SPECIMENOrdering Facility: [facility] Address: [address] [place] [address] Performed By: #### 1 9123-9, 77604-9 ####[facility] [id number] [place] [address] [place] PTT, ANTICOAGULANT THERAPYon 03-03-2024 aPTT Coag (PPP) [Time] 57.8 s High 23.0-32.4 [facility] Comment on above: Order Comment: Speci men Type: BLOOD SPECIMENOrdering Facility: [facility] Address: [address] [place] [address] Performed By: #### P TTAC, 3217-7 ####[facility] [id number] [place] [address] [place] aPTT Coag (PPP) [Time] 37.1 s High 23.0-32.4 [facility] Comment on above: Order Comment: Speci men Type: BLOOD SPECIMENOrdering Facility: [facility] Address: [address] [place] [address] Performed By: #### P TTAC ####[facility] LABIA [id number] [place] [address] [place] aPTT Coag (PPP) [Time] 69.2 s High 23.0-32.4 [facility] Comment on above: Order Comment: Speci men Type: BLOOD SPECIMENOrdering Facility: [facility] Address: [address] [place] [address] Performed By: #### P TTA ####[facility] LABCLIA [id number] [place] [address] [place] Renal function 2000 panelon 03-03-2024 Albumin [Mass/Vol] 3.3 g/dL Low 3.9-4.9 [facility] Comment on above: Order Comment: Speci men Type: BLOOD SPECIMENOrdering Facility: [facility] Address: [address] [place] [address] Performed By: #### 1 9123-9, 03044-6 ####[facility] LABCLIA [id number] [place] [address] [place] Anion gap [Moles/Vol] 10 mmol/L Normal 8-15 [facility] Comment on above: Order Comment: Speci men Type: BLOOD SPECIMENOrdering Facility: [facility] Address: [address] [place] [address] Performed By: #### 1 9123-9, 14956-8 ####[facility] LABCLIA [id number] [place] [address] [place] Calcium [Mass/Vol] 9.6 mg/dL Normal 8.5-10.2 [facility] Comment on above: Order Comment: Speci men Type: BLOOD SPECIMENOrdering Facility: [facility] Address: [address] [place] [address] Performed By: #### 1 9123-9, 25964-4 ####[facility] LABCLIA [id number] [place] [address] [place] Chloride [Moles/Vol] 103 mmol/L Normal 98-107 [facility] Comment on above: Order Comment: Speci men Type: BLOOD SPECIMENOrdering Facility: [facility] Address: [address] [place] [address] Performed By: #### 1 9123-9, 94098-7 ####[facility] LABIA [id number] [place] [address] [place] CO2 [Moles/Vol] 25 mmol/L Normal 22-30 [facility] Comment on above: Order Comment: Speci men Type: BLOOD SPECIMENOrdering Facility: [facility] Address: [address] [place] [address] Performed By: #### 1 9123-9, 69098-9 ####[facility] LABIA [id number] [place] [address] [place] Creatinine [Mass/Vol] 1.93 mg/dL High 0.73-1.22 [facility] Comment on above: Order Comment: Speci men Type: BLOOD SPECIMENOrdering Facility: [facility] Address: [address] [place] [address] Performed By: #### 1 9123-9, 82489-5 ####[facility] [id number] [place] [address] [place] Creatinine and Glomerular filtration rate.predicted panel (S/P/Bld) 34 mL/min/1.73m??? Low >=60 [facility] Comment on above: Order Comment: Speci men Type: BLOOD SPECIMENOrdering Facility: [facility] Address: [address] [place] [address] Result Comment: Etta mated Glomerular Filtration Rate [...] actual GFR. Performed By: #### 1 9123-9, 67106-7 ####[facility] LABIA [id number] [place] [address] [place] Glucose [Mass/Vol] 91 mg/dL Normal 74-99 [facility] Comment on above: Order Comment: Speci men Type: BLOOD SPECIMENOrdering Facility: [facility] Address: [address] [place] [address] Result Comment: The [place] Diabetes Association (ADA) provides guidance for cutoff [...] Standards of Medical Care in Diabetes 2016, [place] [employer]. Diabetes Care. 2016.39(Suppl 1). Performed By: #### 1 9123-9, 92786-5 ####[facility] LABCLIA [id number] [place] [address] [place] Phosphate [Mass/Vol] 3.6 mg/dL Normal 2.7-4.8 [facility] Comment on above: Order Comment: Dylan olvera Type: BLOOD SPECIMENOrdering Facility: [facility] Address: [address] [place] [address] Performed By: #### 1 9123-9, 38692-6 ####[facility] LABCLIA [id number] [place] [address] [place] Potassium [Moles/Vol] 4.4 mmol/L Normal 3.7-5.1 [facility] Comment on above: Order Comment: Rozi men Type: BLOOD SPECIMENOrdering Facility: [facility] Address: [address] [place] [address] Performed By: #### 1 9123-9, 41261-2 ####[facility] LABCLIA [id number] [place] [address] [place] Sodium [Moles/Vol] 138 mmol/L Normal 136-144 [facility] Comment on above: Order Comment: Speci men Type: BLOOD SPECIMENOrdering Facility: [facility] Address: [address] [place] [id number] Performed By: #### 1 9123-9, 31937-0 ####[facility] LABCLIA [id number] [address] [address] [place] Urea nitrogen [Mass/Vol] 22 mg/dL Normal 9-24 [facility] Comment on above: Order Comment: Speci men Type: BLOOD SPECIMENOrdering Facility: [facility] Address: [address] [place] [address] Performed By: #### 1 9123-9, 29774-8 ####[facility] LABCLIA [id number] [place] [address] [place] TYPE + SCREENon 03-03-2024 ABO O Normal [facility] Comment on above: Order Comment: Speci men Type: BLOOD SPECIMENOrdering Facility: [facility] Address: [address] [place] [address] Performed By: #### T SCR ####[facility] BLOOD BANKCLIA [id number] [place] [address] [place] HISTORICAL AB SCR STATUS Negative Normal [facility] Comment on above: Order Comment: Speci men Type: BLOOD SPECIMENOrdering Facility: [facility] Address: [address] [place] [address] Performed By: #### T SCR ####[facility] BLOOD BANKCLIA [id number] [place] [id number] [place] Rh Nom (Bld) Positive Normal [facility] Comment on above: Order Comment: Speci men Type: BLOOD SPECIMENOrdering Facility: [facility] Address: [address] [place], [place] [phone] Performed By: #### T SCR ####[facility] BLOOD BANKCLIA [id number] [place] [id number] [place] TYPE AND SCREEN EXPIRATION 03/06/2024 23:59 Normal [facility] Comment on above: Order Comment: Speci men Type: BLOOD SPECIMENOrdering Facility: [facility] Address: [address] [place] [address] Performed By: #### T SCR ####[facility] BLOOD BANKCLIA [id number] [place] [address] [place] ALLIED HEALTHon 03-02-2024 ALLIED HEALTH Normal [facility] CASE MGT INIT ASSESon 2023 CASE MGT INIT ASSES Normal [facility] CASE MGT INIT ASSES Normal [facility] CBC panel Auto (Bld)on 03-02 Erythrocyte distribution width (RBC) [Ratio] 18.5 % High 11.5-15.0 [facility] Comment on above: Order Comment: Speci men Type: BLOOD SPECIMENOrdering Facility: [facility] Address: [address] [place] [address] Performed By: #### 5 8410-2 ####[facility] LABCLIA [id number] [place] [address] [place] Hematocrit (Bld) [Volume fraction] 38.5 % Low 39.0-51.0 [facility] Comment on above: Order Comment: Speci men Type: BLOOD SPECIMENOrdering Facility: [facility] Address: [address] [place] [address] Performed By: #### 5 8410-2 ####[facility] LABCLIA [id number] [place] [id number] [place] Hemoglobin (Bld) [Mass/Vol] 11.9 g/dL Low 13.0-17.0 [facility] Comment on above: Order Comment: Speci men Type: BLOOD SPECIMENOrdering Facility: [facility] Address: [address] [place] [address] Performed By: #### 5 8410-2 ####[facility] LABCLIA [id number] [place] [address] [place] MCH (RBC) [Entitic mass] 27.4 pg Normal 26.0-34.0 [facility] Comment on above: Order Comment: Speci men Type: BLOOD SPECIMENOrdering Facility: [facility] Address: [address] [place] [address] Performed By: #### 5 8410-2 ####[facility] LABIA [id number] [place] [address] [place] MCHC (RBC) [Mass/Vol] 30.9 g/dL Normal 30.5-36.0 [facility] Comment on above: Order Comment: Speci men Type: BLOOD SPECIMENOrdering Facility: [facility] Address: [address] [place] [address] Performed By: #### 5 8410-2 ####[facility] [id number] [place] [address] [place] MCV (RBC) [Entitic vol] 88.5 fL Normal 80.0-100.0 [facility] Comment on above: Order Comment: Speci men Type: BLOOD SPECIMENOrdering Facility: [facility] Address: [address] [place] [address] Performed By: #### 5 8410-2 ####[facility] [id number] [place] [address] [place] Nucleated RBC (Bld) [#/Vol] 10*3/uL Normal <0.01 [facility] Comment on above: Order Comment: Speci men Type: BLOOD SPECIMENOrdering Facility: [facility] Address: [address] [place] [address] Performed By: #### 5 8410-2 ####[facility] [id number] [place] [address] [place] Platelet mean volume (Bld) [Entitic vol] 10.3 fL Normal 9.0-12.7 [facility] Comment on above: Order Comment: Speci men Type: BLOOD SPECIMENOrdering Facility: [facility] Address: [address] [place] [address] Performed By: #### 5 8410-2 ####[facility] LABCLIA [id number] [place] [address] [place] Platelets (Bld) [#/Vol] 177 10*3/uL Normal 150-400 [facility] Comment on above: Order Comment: Speci men Type: BLOOD SPECIMENOrdering Facility: [facility] Address: [address] [place] [address] Performed By: #### 5 8410-2 ####[facility] LABCLIA [id number] [place] [address] [place] RBC (Bld) [#/Vol] 4.35 10*6/uL Normal 4.20-6.00 [facility] Comment on above: Order Comment: Speci men Type: BLOOD SPECIMENOrdering Facility: [facility] Address: [address] [place] [address] Performed By: #### 5 8410-2 ####[facility] LABCLIA [id number] [place] [address] [place] WBC (Bld) [#/Vol] 5.22 10*3/uL Normal 3.70-11.00 [facility] Comment on above: Order Comment: Speci men Type: BLOOD SPECIMENOrdering Facility: [facility] Address: [address] [place] [address] Performed By: #### 5 8410-2 ####[facility] LABCLIA [id number] [place] [address] [place] CONSULTon 03-02-2024 CONSULT Normal [facility] HISTORY PHYSICALon HISTORY PHYSICAL Normal [facility] NUTRITIONon 03-02-2024 NUTRITION Normal [facility] PTT, ANTICOAGULANT THERAPYon 03-02-2024 aPTT Coag (PPP) [Time] 67.7 s High 23.0-32.4 [facility] Comment on above: Order Comment: Speci men Type: BLOOD SPECIMENOrdering Facility: [facility] Address: [address] [place] [address] Performed By: #### P TTAC ####[facility] LABCLIA [id number] [place] [address] [place] aPTT Coag (PPP) [Time] 53.4 s High 23.0-32.4 [facility] Comment on above: Order Comment: Speci men Type: BLOOD SPECIMENOrdering Facility: [facility] Address: [address] [place] [address] Performed By: #### P TTAC ####[facility] LABCLIA [id number] [place] [address] [place] aPTT Coag (PPP) [Time] 38.6 s High 23.0-32.4 [facility] Comment on above: Order Comment: Speci men Type: BLOOD SPECIMENOrdering Facility: [facility] Address: [address] [place] [address] Performed By: #### P TTAC ####[facility] LABCLIA [id number] [place] [address] [place] Renal function 2000 panelon 03-02-2024 Albumin [Mass/Vol] 3.3 g/dL Low 3.9-4.9 [facility] Comment on above: Order Comment: Speci men Type: BLOOD SPECIMENOrdering Facility: [facility] Address: [address] [place] [address] Performed By: #### 2 4362-6 ####[facility] LABCLIA [id number] [place] [address] [place] Anion gap [Moles/Vol] 11 mmol/L Normal 8-15 [facility] Comment on above: Order Comment: Speci men Type: BLOOD SPECIMENOrdering Facility: [facility] Address: [address] [place], [place] [address] Performed By: #### 2 4362-6 ####[facility] LABCLIA [id number] [place] [address] [place] Calcium [Mass/Vol] 9.6 mg/dL Normal 8.5-10.2 [facility] Comment on above: Order Comment: Speci men Type: BLOOD SPECIMENOrdering Facility: [facility] Address: [address] [place] [address] Performed By: #### 2 4362-6 ####[facility] LABCLIA [id number] [place] [address] [place] Chloride [Moles/Vol] 103 mmol/L Normal 98-107 [facility] Comment on above: Order Comment: Speci men Type: BLOOD SPECIMENOrdering Facility: [facility] Address: [address] [place] [address] Performed By: #### 2 4362-6 ####[facility] LABCLIA [id number] [place] [address] [place] CO2 [Moles/Vol] 25 mmol/L Normal 22-30 [facility] Comment on above: Order Comment: Speci men Type: BLOOD SPECIMENOrdering Facility: [facility] Address: [address] [place], [place] [address] Performed By: #### 2 4362-6 ####[facility] LABCLIA [id number] [facility] [place] [id number] [place] Creatinine [Mass/Vol] 1.89 mg/dL High 0.73-1.22 [facility] Comment on above: Order Comment: Speci men Type: BLOOD SPECIMENOrdering Facility: [facility] Address: [address] [place], [place] [address] Performed By: #### 2 4362-6 ####[facility] LABCLIA [id number] [place] [address] [place] Creatinine and Glomerular filtration rate.predicted panel (S/P/Bld) 35 mL/min/1.73m??? Low >=60 [facility] Comment on above: Order Comment: Dylan olvera Type: BLOOD SPECIMENOrdering Facility: [facility] Address: [address] [place] [address] Result Comment: Etta mated Glomerular Filtration Rate [...] actual GFR. Performed By: #### 2 4362-6 ####[facility] LABCLIA [id number] [place] [address] [place] Glucose [Mass/Vol] 88 mg/dL Normal 74-99 [facility] Comment on above: Order Comment: Dylan olvera Type: BLOOD SPECIMENOrdering Facility: [facility] Address: [address] [place] [address] Result Comment: The [place] Diabetes Association (ADA) provides guidance for cutoff [...] Standards of Medical Care in Diabetes 2016, [place] [employer]. Diabetes Care. 2016.39(Suppl 1). Performed By: #### 2 4362-6 ####[facility] LABCLIA [id number] [place] [address] [place] Phosphate [Mass/Vol] 3.1 mg/dL Normal 2.7-4.8 [facility] Comment on above: Order Comment: Speci men Type: BLOOD SPECIMENOrdering Facility: [facility] Address: [address] [place] [id number] Performed By: #### 2 4362-6 ####[facility] LABCLIA [id number] [place] [id number] [place] Potassium [Moles/Vol] 3.9 mmol/L Normal 3.7-5.1 [facility] Comment on above: Order Comment: Speci men Type: BLOOD SPECIMENOrdering Facility: [facility] Address: [address] [place] [address] Performed By: #### 2 4362-6 ####[facility] LABCLIA [id number] [place] [address] [place] Sodium [Moles/Vol] 139 mmol/L Normal 136-144 [facility] Comment on above: Order Comment: Speci men Type: BLOOD SPECIMENOrdering Facility: [facility] Address: [address] [place], [place] [address] Performed By: #### 2 4362-6 ####[facility] LABCLIA [id number] [place] [address] [place] Urea nitrogen [Mass/Vol] 21 mg/dL Normal 9-24 [facility] Comment on above: Order Comment: Speci men Type: BLOOD SPECIMENOrdering Facility: [facility] Address: [address] [place] [address] Performed By: #### 2 4362-6 ####[facility] LABCLIA [id number] [place] [address] [place] Albumin [Mass/Vol] 3.5 g/dL Low 3.9-4.9 [facility] Comment on above: Order Comment: Speci men Type: BLOOD SPECIMENOrdering Facility: [facility] Address: [address] [place], [place] [address] Performed By: #### 2 4362-6 ####[facility] LABCLIA [id number] [address] [address] [place] Anion gap [Moles/Vol] 13 mmol/L Normal 8-15 [facility] Comment on above: Order Comment: Speci men Type: BLOOD SPECIMENOrdering Facility: [facility] Address: [address] [place] [address] Performed By: #### 2 4362-6 ####[facility] LABCLIA [id number] [place] [address] [place] Calcium [Mass/Vol] 9.9 mg/dL Normal 8.5-10.2 [facility] Comment on above: Order Comment: Speci men Type: BLOOD SPECIMENOrdering Facility: [facility] Address: [address] [place] [address] Performed By: #### 2 4362-6 ####[facility] LABCLIA [id number] [place] [address] [place] Chloride [Moles/Vol] 101 mmol/L Normal 98-107 [facility] Comment on above: Order Comment: Speci men Type: BLOOD SPECIMENOrdering Facility: [facility] Address: [address] [place] [address] Performed By: #### 2 4362-6 ####[facility] LABCLIA [id number] [place] [address] [place] CO2 [Moles/Vol] 25 mmol/L Normal 22-30 [facility] Comment on above: Order Comment: Speci men Type: BLOOD SPECIMENOrdering Facility: [facility] Address: [address] [place], [place] [address] Performed By: #### 2 4362-6 ####[facility] LABCLIA [id number] [place] [id number] [place] Creatinine [Mass/Vol] 1.84 mg/dL High 0.73-1.22 [facility] Comment on above: Order Comment: Dylan olvera Type: BLOOD SPECIMENOrdering Facility: [facility] Address: [address] [place] [address] Performed By: #### 2 4362-6 ####[facility] LABIA [id number] [place] [address] [place] Creatinine and Glomerular filtration rate.predicted panel (S/P/Bld) 36 mL/min/1.73m??? Low >=60 [facility] Comment on above: Order Comment: Dylan olvera Type: BLOOD SPECIMENOrdering Facility: [facility] Address: [address] [place] [address] Result Comment: Etta mated Glomerular Filtration Rate [...] actual GFR. Performed By: #### 2 4362-6 ####[facility] LABIA [id number] [place] [address] [place] Glucose [Mass/Vol] 96 mg/dL Normal 74-99 [facility] Comment on above: Order Comment: Dylan olvera Type: BLOOD SPECIMENOrdering Facility: [facility] Address: [address] [place] [address] Result Comment: The [place] Diabetes [employer] (ADA) provides guidance for cutoff [...] Standards of Medical Care in Diabetes 2016, [place] [employer]. Diabetes Care. 2016.39(Suppl 1). Performed By: #### 2 4362-6 ####[facility] LABCLIA [id number] [place] [address] [place] Phosphate [Mass/Vol] 3.3 mg/dL Normal 2.7-4.8 [facility] Comment on above: Order Comment: Speci men Type: BLOOD SPECIMENOrdering Facility: [facility] Address: [address] [place] [address] Performed By: #### 2 4362-6 ####[facility] LABCLIA [id number] [place] [address] [place] Potassium [Moles/Vol] 4.1 mmol/L Normal 3.7-5.1 [facility] Comment on above: Order Comment: Speci men Type: BLOOD SPECIMENOrdering Facility: [facility] Address: [address] [place] [address] Performed By: #### 2 4362-6 ####[facility] LABIA [id number] [place] [address] [place] Sodium [Moles/Vol] 139 mmol/L Normal 136-144 [facility] Comment on above: Order Comment: Speci men Type: BLOOD SPECIMENOrdering Facility: [facility] Address: [address] [place] [address] Performed By: #### 2 4362-6 ####[facility] LABCLIA [id number] [place] [id number] [place] Urea nitrogen [Mass/Vol] 21 mg/dL Normal 9-24 [facility] Comment on above: Order Comment: Speci men Type: BLOOD SPECIMENOrdering Facility: [facility] Address: [address] [place] [address] Performed By: #### 2 4362-6 ####[facility] LABCLIA [id number] [place] [id number] [place] US CAROTID BILon 03-02-2024 US CAROTID DIANNE Normal [facility] US TCD CONTIN EMBOLI MONTon 03-02-2024 US TCD CONTIN EMBOLI MATTEO Normal [facility] VISUAL FIELD 24-2 OU (BOTH E YES)on 03-02-2024 [facility] Radiology Study observation (narrative) [facility] BASIC METABOLIC PANLon 03-01 Anion gap [Moles/Vol] 8 mmol/L Normal 5-15 [facility] Comment on above: Performed By: #### C BCA, PINR, 35202-7, CMP #### [facility] ([id number]) [address] [place] [address] Calcium [Mass/Vol] 9.2 mg/dL Normal 8.5-10.5 [facility] Comment on above: Performed By: #### C BCA, PINR, 82123-5, CMP #### [facility] ([id number]) [address] [place] [address] 16474 Chloride [Moles/Vol] 104 mmol/L Normal 98-109 [facility] Comment on above: Performed By: #### C BCA, PINR, 32089-3, CMP #### [facility] ([id number]) [address] [place] [address] 63997 CO2 [Moles/Vol] 25 mmol/L Normal 22-32 [facility] Comment on above: Performed By: #### C BCA, PINR, 63918-9, CMP #### [facility] ([id number]) [address] [place] [address]23 Creatinine [Mass/Vol] 1.76 mg/dL High 0.70-1.20 [facility] Comment on above: Result Comment: METH OD TRACEABLE TO IDMS STANDARD Performed By: #### C BCA, PINR, 70821-3, CMP #### [facility] ([id number]) [address] [place] [address] GFR/1.73 sq M.predicted among non-blacks MDRD (S/P/Bld) [Vol rate/Area] 38 mL/min/{1.73_m2} Low >59 [facility] Comment on above: Result Comment: Reported eGFR is based on the CKD-EPI 2020 equation that does not use a race coefficient. Performed By: #### C RODO PINR, 43651-4, CMP #### [facility] ([id number]) [address] [place] [address] 90240 Glucose [Mass/Vol] 94 mg/dL Normal 65-99 [facility] Comment on above: Performed By: #### C RODO PINR, 41840-9, CMP #### [facility] ([id number]) [address] [place] [address] 09183 Potassium [Moles/Vol] 3.6 mmol/L Normal 3.5-5.0 [facility] Comment on above: Performed By: #### C BCA, PINR, 60855-3, CMP #### [facility] ([id number]) [address] [place] [address] 35918 Sodium [Moles/Vol] 137 mmol/L Normal 134-146 [facility] Comment on above: Performed By: #### C BCA, PINR, 62714-1, CMP #### [facility] ([id number]) [address] [place] [address] 42566 Urea nitrogen [Mass/Vol] 23 mg/dL Normal 5-27 [facility] Comment on above: Performed By: #### C BCA, PINR, 89138-9, CMP #### [facility] ([id number]) [address] [place] [address] 39849 COMPLETE BLOOD COUNTon 03-01 Erythrocyte distribution width (RBC) [Ratio] 19.6 % High 11.5-15.0 [facility] Comment on above: Performed By: #### C BCA, PINR, 99999-8, CMP #### [facility] ([id number]) [address] [place] [address] 62408 Hematocrit (Bld) [Volume fraction] 35.8 % Low 39-49 [facility] Comment on above: Performed By: #### C PHILLIP KOEHLERR, 12188-0, CMP #### [facility] ([id number]) [address] [place] [id number] Hemoglobin (Bld) [Mass/Vol] 11.7 g/dL Low 13.0-17.0 [facility] Comment on above: Performed By: #### PHILLIP Cunningham BCAR, 18477-5, CMP #### [facility] ([id number]) [address] [place] [address] [id number] MCH (RBC) [Entitic mass] 27.6 pg Normal 27-34 [facility] Comment on above: Performed By: #### Marisa KOEHLER PINR, 42286-8, CMP #### [facility] ([id number]) [address] [place] [address] 68670 MCHC (RBC) [Mass/Vol] 32.6 g/dL Normal 32-36 [facility] Comment on above: Performed By: #### PHILLIP Cunningham BCAR, 51271-6, CMP #### [facility] ([id number]) [address] [place] [address] 17281 MCV (RBC) [Entitic vol] 85 fL Normal 80-100 [facility] Comment on above: Performed By: #### Marisa KOEHLER PINR, 09139-8, CMP #### [facility] ([id number]) [address] [place] [address] 32783 Platelet mean volume (Bld) [Entitic vol] 8.4 fL Normal 7-12 [facility] Comment on above: Performed By: #### Marisa KOEHLER PINR, 35827-1, CMP #### [facility] ([id number]) [address] [place] [address] 84208 Platelets (Bld) [#/Vol] 190 10*3/uL Normal 150-450 [facility] Comment on above: Performed By: #### C RODO, PINR, 46528-0, CMP #### [facility] ([id number]) [address] [place] [address] 75366 RBC COUNT 4.23 X10E12/L Normal 4.10-5.70 [facility] Comment on above: Performed By: #### C RODO, PINR, 34571-8, CMP #### [facility] ([id number]) [address] [place] [address] 71695 WBC (Bld) [#/Vol] 5.5 10*3/uL Normal 4.0-11.0 [facility] Comment on above: Performed By: #### C RODO, PINR, 87635-9, CMP #### [facility] ([id number]) [address] [place] [address] 15698 ECG COMPLETEon 03-01-2024 ECG COMPLETE Normal [facility] NURSING PROGon 03-01-2024 NURSING PROG Normal [facility] aPTT Coag (PPP) [Time]on aPTT Coag (Bld) [Time] 60 s High 26-37 [facility] Comment on above: Result Comment: NEW REFERENCE RANGE Performed By: #### 1 4979-9 ####[facility] ([id number])[address] [place] [address] 15210 HEMOGLOBINon 02-29-2024 Hemoglobin (Bld) [Mass/Vol] 11.6 g/dL Low 13.0-17.0 [facility] Comment on above: Performed By: #### 7 18-7, PLTCT ####[facility] ([id number])[address] [place] [address] 39779 PLATELET COUNT AND MPVon Platelet mean volume (Bld) [Entitic vol] 8.3 fL Normal - [facility] Comment on above: Performed By: #### 7 18-7, PLTCT ####[facility] ([id number])[address] [place] [address] 03142 Platelets (Bld) [#/Vol] 199 10*3/uL Normal 150-450 [facility] Comment on above: Performed By: #### 7 -7, PLTCT ####[facility] ([id number])[address] [place] [address] 72570 aPTT Coag (PPP) [Time]on aPTT Coag (Bld) [Time] 64 s High 26-37 [facility] Comment on above: Result Comment: NEW REFERENCE RANGE Performed By: #### 1 4979-9 ####[facility] ([id number])[address] [place] [address] 97946 CNPNon 02-28-2024 CNPN Normal [facility] HEMOGLOBINon 02-28-2024 Hemoglobin (Bld) [Mass/Vol] 11.6 g/dL Low 13.0-17.0 [facility] Comment on above: Performed By: #### 7 -7, PLTCT ####[facility] ([id number])[address] [place] [address] 43955 PLATELET COUNT AND MPVon Platelet mean volume (Bld) [Entitic vol] 8.0 fL Normal - [facility] Comment on above: Performed By: #### 7 18-7, PLTCT ####[facility] ([id number])[address] [place] [address] 75066 Platelets (Bld) [#/Vol] 195 10*3/uL Normal 150-450 [facility] Comment on above: Performed By: #### 7 18-7, PLTCT ####[facility] ([id number])[address] [place] [address] 08513 aPTT Coag (PPP) [Time]on aPTT Coag (Bld) [Time] 64 s High [address] [place] [address] Comment on above: Result Comment: NEW REFERENCE RANGE Performed By: #### 1 4979-9 ####[facility] ([id number])[address] [place] [address] 67699 aPTT Coag (Bld) [Time] 77 s High [address] [place] [address] Comment on above: Result Comment: NEW REFERENCE RANGE Performed By: #### 1 4979-9 ####[facility] ([id number])[address] [place] [address] 85994 aPTT Coag (Bld) [Time] 91 s High [address] [place] [address] Comment on above: Result Comment: NEW REFERENCE RANGE Performed By: #### 1 4979-9 ####[facility] ([id number])[address] [place] [address] 29747 aPTT Coag (Bld) [Time] 113 s Critically high [address] [place] [address] Comment on above: Result Comment: NEW REFERENCE RANGE Performed By: #### 1 4979-9 ####[facility] ([id number])[address] [place] [address] [place] [address] CNPNon 02-27-2024 CNPN Normal [facility] aPTT Coag (PPP) [Time]on aPTT Coag (Bld) [Time] s Critically high [address] [place] [address] Comment on above: Result Comment: NEW REFERENCE RANGE Performed By: #### 1 4979-9 #### [facility] ([id number]) [address] [place] [address] 86449 aPTT Coag (Bld) [Time] s Critically high 26-37 [facility] Comment on above: Result Comment: NEW REFERENCE RANGE Performed By: #### 1 4979-9 #### [facility] ([id number]) [address] [place] [address] 12581 CBC AND AUTO DIFFon 02-26-20 24 ABSOLUTE BASOPHIL 0.0 X10E9/L Normal 0.0-0.2 [facility] Comment on above: Performed By: #### C BCA, PINR, 71286-1, CMP #### [facility] ([id number]) [address] [place] [address] 79575 ABSOLUTE NEUTROPHIL 4.9 X10E9/L Normal 1.5-6.6 [facility] Comment on above: Performed By: #### C BCA, PINR, 29602-7, CMP #### [facility] ([id number]) [address] [place] [address] 05791 Basophils/100 WBC (Bld) 0.6 % Normal [facility] Comment on above: Performed By: #### Marisa BCA, PINR, 54000-5, CMP #### [facility] ([id number]) [address] [place] [address] 08677 Eosinophils (Bld) [#/Vol] 0.2 10*3/uL Normal 0.0-0.4 [facility] Comment on above: Performed By: #### C BCA, PINR, 15792-9, CMP #### [facility] ([id number]) [address] [place] [address] 59693 Eosinophils/100 WBC (Bld) 3.3 % Normal [facility] Comment on above: Performed By: #### Marisa BCA, PINR, 61233-9, CMP #### [facility] ([id number]) [address] [place] [address] 97748 Erythrocyte distribution width (RBC) [Ratio] 18.9 % High 11.5-15.0 [facility] Comment on above: Performed By: #### C KATHERINE KOEHLER, 77638-6, CMP #### [facility] ([id number]) [address] [place] [address] 22460 Hematocrit (Bld) [Volume fraction] 37.2 % Low 39-49 [facility] Comment on above: Performed By: #### KATHERINE Cunningham BCA, 45291-1, CMP #### [facility] ([id number]) [address] [place] [address] 24765 Hemoglobin (Bld) [Mass/Vol] 12.3 g/dL Low 13.0-17.0 [facility] Comment on above: Performed By: #### KATHERINE Cunningham BCA, 06670-2, CMP #### [facility] ([id number]) [address] [place] [address] 77255 Lymphocytes (Bld) [#/Vol] 1.5 10*3/uL Normal 1.0-3.5 [facility] Comment on above: Performed By: #### KATHERINE Cunningham BCA, 50285-4, CMP #### [facility] ([id number]) [address] [place] [address] 62373 Lymphocytes/100 WBC (Bld) 19.5 % Normal [facility] Comment on above: Performed By: #### KATHERINE Cunningham BCA, 21385-8, CMP #### [facility] ([id number]) [address] [place] [address] 40831 MCH (RBC) [Entitic mass] 27.7 pg Normal 27-34 [facility] Comment on above: Performed By: #### PHILLIP Cunningham BCAR, 48713-4, CMP #### [facility] ([id number]) [address] [place] [address] 34081 MCHC (RBC) [Mass/Vol] 33.1 g/dL Normal 32-36 [facility] Comment on above: Performed By: #### C RODO, PINR, 85428-6, CMP #### [facility] ([id number]) [address] [place] [address] 22562 MCV (RBC) [Entitic vol] 84 fL Normal 80-100 [facility] Comment on above: Performed By: #### Marisa KOEHLER, PINR, 66823-2, CMP #### [facility] ([id number]) [address] [place] [address] 35729 Monocytes (Bld) [#/Vol] 0.8 10*3/uL Normal 0-0.9 [facility] Comment on above: Performed By: #### C RODO, PINR, 57294-7, CMP #### [facility] ([id number]) [address] [place] [address] 38360 Monocytes/100 WBC (Bld) 10.5 % Normal [facility] Comment on above: Performed By: #### Marisa KOEHLER, PINR, 53299-2, CMP #### [facility] ([id number]) [address] [place] [address] 34053 Neutrophils/100 WBC (Bld) 66.1 % Normal [facility] Comment on above: Performed By: #### Marisa KOEHLER, PINR, 64742-3, CMP #### [facility] ([id number]) [address] [place] [address] [place] [address] Platelet mean volume (Bld) [Entitic vol] 8.0 fL Normal 7-12 [facility] Comment on above: Performed By: #### Marisa KOEHLER, PINR, 44151-4, CMP #### [facility] ([id number]) [address] [place] [address] 28444 Platelets (Bld) [#/Vol] 228 10*3/uL Normal 150-450 [facility] Comment on above: Performed By: #### Marisa BCA, PINR, 46952-3, CMP #### [facility] ([id number]) [address] [place] [address] 42828 RBC COUNT 4.45 X10E12/L Normal 4.10-5.70 [facility] Comment on above: Performed By: #### C BCA, PINR, 92708-1, CMP #### [facility] ([id number]) [address] [place] [address] 99873 WBC (Bld) [#/Vol] 7.5 10*3/uL Normal 4.0-11.0 [facility] Comment on above: Performed By: #### C BCA, PINR, 57387-8, CMP #### [facility] ([id number]) [address] [place] [address] 16288 COMPREHENSIVE METABOLIC PANE [facility] 02-26-2024 Albumin [Mass/Vol] 3.4 g/dL Normal 3.2-5.3 [facility] Comment on above: Performed By: #### C BCA, PINR, 77940-2, CMP #### [facility] ([id number]) [address] [place] [address] 15223 ALP [Catalytic activity/Vol] 88 U/L Normal 39-130 [facility] Comment on above: Performed By: #### C BCA, PINR, 36112-0, CMP #### [facility] ([id number]) [address] [place] [address] 70254 ALT [Catalytic activity/Vol] 18 U/L Normal 0-40 [facility] Comment on above: Performed By: #### C BCA, PINR, 71734-9, CMP #### [facility] ([id number]) [address] [place] [address] 23992 Anion gap [Moles/Vol] 9 mmol/L Normal 5-15 [facility] Comment on above: Performed By: #### C BCA, PINR, 88810-7, CMP #### [facility] ([id number]) [address] [place] [address] 66680 AST [Catalytic activity/Vol] 26 U/L Normal 0-41 [facility] Comment on above: Performed By: #### C BCA, PINR, 99232-8, CMP #### [facility] ([id number]) [address] [place] [address] [place] [address] Bilirubin [Mass/Vol] 1.2 mg/dL Normal 0.3-1.2 [facility] Comment on above: Performed By: #### C BCA, PINR, 04527-7, CMP #### [facility] ([id number]) [address] [place] [address] 51364 Calcium [Mass/Vol] 9.1 mg/dL Normal 8.5-10.5 [facility] Comment on above: Performed By: #### C BCA, PINR, 79749-3, CMP #### [facility] ([id number]) [address] [place] [address] 32149 Chloride [Moles/Vol] 101 mmol/L Normal 98-109 [facility] Comment on above: Performed By: #### C BCA, PINR, 13055-3, CMP #### [facility] ([id number]) [address] [place] [address] [place] [address] CO2 [Moles/Vol] 25 mmol/L Normal 22-32 [facility] Comment on above: Performed By: #### C BCA, PINR, 89228-6, CMP #### [facility] ([id number]) [address] [place] [address] [place] [address] Creatinine [Mass/Vol] 2.08 mg/dL High 0.70-1.20 [facility] Comment on above: Result Comment: METH OD TRACEABLE TO IDMS STANDARD Performed By: #### C BCA, PINR, 97498-5, CMP #### [facility] ([id number]) [address] [place] [address] 11745 GFR/1.73 sq M.predicted among non-blacks MDRD (S/P/Bld) [Vol rate/Area] 31 mL/min/{1.73_m2} Low >59 [facility] Comment on above: Result Comment: Reported eGFR is based on the CKD-EPI 2020 equation that does not use a race coefficient. Performed By: #### C BCA, PINR, 15019-9, CMP #### [facility] ([id number]) [address] [place] [address] 72417 Glucose [Mass/Vol] 122 mg/dL High 65-99 [facility] Comment on above: Performed By: #### C RODO, PINR, 83418-0, CMP #### [facility] ([id number]) [address] [place] [address] 77988 Potassium [Moles/Vol] 3.8 mmol/L Normal 3.5-5.0 [facility] Comment on above: Performed By: #### C BCA, PINR, 12892-0, CMP #### [facility] ([id number]) [address] [place] [address] 80037 Protein [Mass/Vol] 7.3 g/dL Normal 6.0-8.0 [facility] Comment on above: Performed By: #### C BCA, PINR, 78548-9, CMP #### [facility] ([id number]) [address] [place] [address] 80834 Sodium [Moles/Vol] 135 mmol/L Normal 134-146 [facility] Comment on above: Performed By: #### C BCA, PINR, 52206-3, CMP #### [facility] ([id number]) [address] [place] [address] 87759 Urea nitrogen [Mass/Vol] 29 mg/dL High 5-27 [facility] Comment on above: Performed By: #### C RODO, PINR, 31407-3, [facility] #### [facility] ([id number]) [address] [place] [address], [place] [address] CT BRAIN WO CONT STROKE ALER Ton [...] Khoury MD on 02/26/2024 11:09 PM Normal [facility] CT CTA CAROTIDon 02-26-2024 CT CTA CAROTID [...] Automated exposure control was utilized. The [place] Symptomatic Carotid Endarterectomy Trial (NASCET)calculation of ICA [...] Khoury MD on 02/26/2024 11:38 PM Normal [facility] CT CTA HEADon 02-26-2024 CT CTA HEAD [...] Engel MD on 02/26/2024 11:29 PM Normal [facility] Glucose Glucometer (BldC) [M ass/Vol]on 02-26-2024 Glucose [Mass/Vol] 112 mg/dL High 65-99 [facility] PROTIME AND INRon 02-26-2024 INR Coag (PPP) [Relative time] 2.1 {INR} High 0.8-1.1 [facility] Comment on above: Performed By: #### C KATHERINE KOEHLER, 88875-1, CMP #### [facility] ([id number]) [address] [place] [address], [place] [address] PT Coag (PPP) [Time] 23.9 s High 9.8-13.2 [facility] Comment on above: Result Comment: NEW REFERENCE RANGE Performed By: #### C BCA, PINR, 22669-6, CMP #### [facility] ([id number]) [address] [place] [address] 67541 aPTT Coag (PPP) [Time]on aPTT Coag (Bld) [Time] 39 s High 26-37 [facility] Comment on above: Result Comment: NEW REFERENCE RANGE Performed By: #### C BCA, PINR, 06986-1, CMP #### [facility] ([id number]) [address] [place] [address] 46641 Basic metabolic 2000 panelon 2024 Anion gap [Moles/Vol] 12 mmol/L Normal 8-15 [facility] Comment on above: Order Comment: Speci men Type: BLOOD SPECIMENOrdering Facility: [facility] Address: [address] [place] [address] Performed By: #### 2 4320-2, ####[facility] LABCLIA [id number] [place] [address] [place] Calcium [Mass/Vol] 9.4 mg/dL Normal 8.5-10.2 [facility] Comment on above: Order Comment: Speci men Type: BLOOD SPECIMENOrdering Facility: [facility] Address: [address] [place] [address] Performed By: #### 2 4320-2, ####[facility] LABCLIA [id number] [place] [address] [place] Chloride [Moles/Vol] 104 mmol/L Normal 98-107 [facility] Comment on above: Order Comment: Speci men Type: BLOOD SPECIMENOrdering Facility: [facility] Address: [address] [place] [address] Performed By: #### 2 432 ####[facility] LABCLIA [id number] [place] [id number] [place] CO2 [Moles/Vol] 24 mmol/L Normal 22-30 [facility] Comment on above: Order Comment: Speci men Type: BLOOD SPECIMENOrdering Facility: [facility] Address: [address] [place] [address] Performed By: #### 2 4320-10, ####[facility] LABIA [id number] [place] [id number] [place] Creatinine [Mass/Vol] 1.90 mg/dL High 0.73-1.22 [facility] Comment on above: Order Comment: Speci men Type: BLOOD SPECIMENOrdering Facility: [facility] Address: [address] [place] [address] Performed By: #### 2 4320-10, ####[facility] LABIA [id number] [place] [address] [place] Creatinine and Glomerular filtration rate.predicted panel (S/P/Bld) 35 mL/min/1.73m??? Low >=60 [facility] Comment on above: Order Comment: Speci men Type: BLOOD SPECIMENOrdering Facility: [facility] Address: [address] [place] [address] Result Comment: Etta mated Glomerular Filtration Rate [...] actual GFR. Performed By: #### 2 4320-10, ####[facility] LABCLIA [id number] [address] [address] [place] Glucose [Mass/Vol] 90 mg/dL Normal 74-99 [facility] Comment on above: Order Comment: Dylan olvera Type: BLOOD SPECIMENOrdering Facility: [facility] Address: [address] [place] [address] Result Comment: The [place] Diabetes Association (ADA) provides guidance for cutoff [...] Standards of Medical Care in Diabetes 2016, [place] [employer]. Diabetes Care. 2016.39(Suppl 1). Performed By: #### 2 432-, ####[facility] LABCLIA [id number] [place] [address] [place] Potassium [Moles/Vol] 4.0 mmol/L Normal 3.7-5.1 [facility] Comment on above: Order Comment: Dylan olvera Type: BLOOD SPECIMENOrdering Facility: [facility] Address: [address] [place] [address] Performed By: #### 2 4320-10, ####[facility] LABCLIA [id number] [place] [address] [place] Sodium [Moles/Vol] 140 mmol/L Normal 136-144 [facility] Comment on above: Order Comment: Dylan olvera Type: BLOOD SPECIMENOrdering Facility: [facility] Address: [address] [place] [address] Performed By: #### 2 4320-10, ####[facility] LABCLIA [id number] [place] [id number] [place] Urea nitrogen [Mass/Vol] 31 mg/dL High 9-24 [facility] Comment on above: Order Comment: Speci men Type: BLOOD SPECIMENOrdering Facility: [facility] Address: [address] [place] [address] Performed By: #### 2 4321-2, 98777-5 ####[facility] LABCLIA [id number] [place] [address] [place] CBC panel Auto (Bld)on 02-18 Erythrocyte distribution width (RBC) [Ratio] 17.3 % High 11.5-15.0 [facility] Comment on above: Order Comment: Speci men Type: BLOOD SPECIMENOrdering Facility: [facility] Address: [address] [place] [address] Performed By: #### 5 8410-2 ####[facility] LABIA [id number] [place] [address] [place] Hematocrit (Bld) [Volume fraction] 40.3 % Normal 39.0-51.0 [facility] Comment on above: Order Comment: Speci men Type: BLOOD SPECIMENOrdering Facility: [facility] Address: [address] [place] [address] Performed By: #### 5 8410-2 ####[facility] LABIA [id number] [place] [address] [place] Hemoglobin (Bld) [Mass/Vol] 12.4 g/dL Low 13.0-17.0 [facility] Comment on above: Order Comment: Speci men Type: BLOOD SPECIMENOrdering Facility: [facility] Address: [address] [place] [address] Performed By: #### 5 8410-2 ####[facility] LABIA [id number] [place] [address] [place] MCH (RBC) [Entitic mass] 26.9 pg Normal 26.0-34.0 [facility] Comment on above: Order Comment: Speci men Type: BLOOD SPECIMENOrdering Facility: [facility] Address: [address] [place] [address] Performed By: #### 5 8410-2 ####[facility] LABCLIA [id number] [place] [address] [place] MCHC (RBC) [Mass/Vol] 30.8 g/dL Normal 30.5-36.0 [facility] Comment on above: Order Comment: Speci men Type: BLOOD SPECIMENOrdering Facility: [facility] Address: [address] [place] [address] Performed By: #### 5 8410-2 ####[facility] LABIA [id number] [place] [address] [place] MCV (RBC) [Entitic vol] 87.4 fL Normal 80.0-100.0 [facility] Comment on above: Order Comment: Speci men Type: BLOOD SPECIMENOrdering Facility: [facility] Address: [address] [place] [address] Performed By: #### 5 8410-2 ####[facility] LABIA [id number] [place] [address] [place] Nucleated RBC (Bld) [#/Vol] 10*3/uL Normal <0.01 [facility] Comment on above: Order Comment: Speci men Type: BLOOD SPECIMENOrdering Facility: [facility] Address: [address] [place] [address] Performed By: #### 5 8410-2 ####[facility] LABIA [id number] [place] [address] [place] Platelet mean volume (Bld) [Entitic vol] 10.4 fL Normal 9.0-12.7 [facility] Comment on above: Order Comment: Speci men Type: BLOOD SPECIMENOrdering Facility: [facility] Address: [address] [place] [address] Performed By: #### 5 8410-2 ####[facility] LABCLIA [id number] [place] [id number] [place] Platelets (Bld) [#/Vol] 219 10*3/uL Normal 150-400 [facility] Comment on above: Order Comment: Speci men Type: BLOOD SPECIMENOrdering Facility: [facility] Address: [address] [place] [address] Performed By: #### 5 8410-2 ####[facility] LABIA [id number] [place] [address] [place] RBC (Bld) [#/Vol] 4.61 10*6/uL Normal 4.20-6.00 [facility] Comment on above: Order Comment: Speci men Type: BLOOD SPECIMENOrdering Facility: [facility] Address: [address] [place] [address] Performed By: #### 5 8410-2 ####[facility] LABIA [id number] [place] [address] [place] WBC (Bld) [#/Vol] 7.03 10*3/uL Normal 3.70-11.00 [facility] Comment on above: Order Comment: Speci men Type: BLOOD SPECIMENOrdering Facility: [facility] Address: [address] [place] [address] Performed By: #### 5 8410-2 ####[facility] [id number] [place] [address] [place] CNDSon 2024 CNDS Normal [facility] ECG COMPLETEon 2024 ECG COMPLETE Normal [facility] Magnesium SerPl-mCncon 02-18 Magnesium [Mass/Vol] 2.4 mg/dL High 1.7-2.3 [facility] Comment on above: Order Comment: Speci men Type: BLOOD SPECIMENOrdering Facility: [facility] Address: [address] [place] [address] Performed By: #### 2 4321-2, 54870-1 ####[facility] LABCLIA [id number] [address] [address] [place] PT EDon 2024 PT ED Normal [facility] THERAPY NTon 2024 THERAPY NT Normal [facility] THERAPY NT Normal [facility] ANES POSTPROC EVALon 024 ANES POSTPROC EVAL Normal [facility] ANES PRE-OPon 02-18-2024 ANES PRE-OP Normal [facility] Basic metabolic 2000 panelon 02-18-2024 Anion gap [Moles/Vol] 14 mmol/L Normal 9-18 [facility] Comment on above: Order Comment: Speci men Type: BLOOD SPECIMENOrdering Facility: [facility] Address: [address] [place] [address] Performed By: #### 2 4321-2, ####[facility] LABCLIA [id number] [place] [address] [place] Calcium [Mass/Vol] 9.4 mg/dL Normal 8.5-10.2 [facility] Comment on above: Order Comment: Speci men Type: BLOOD SPECIMENOrdering Facility: [facility] Address: [address] [place] [address] Performed By: #### 2 4321-2, ####[facility] LABCLIA [id number] [place] [address] [place] Chloride [Moles/Vol] 101 mmol/L Normal 97-105 [facility] Comment on above: Order Comment: Speci men Type: BLOOD SPECIMENOrdering Facility: [facility] Address: [address] [place] [address] Performed By: #### 2 4321-2, ####[facility] LABCLIA [id number] [address] [address] [place] CO2 [Moles/Vol] 22 mmol/L Normal 22-30 [facility] Comment on above: Order Comment: Speci men Type: BLOOD SPECIMENOrdering Facility: [facility] Address: [address] [place] [address] Performed By: #### 2 43209-17, ####[facility] LABCLIA [id number] [address] [address] [place] Creatinine [Mass/Vol] 2.02 mg/dL High 0.73-1.22 [facility] Comment on above: Order Comment: Speci men Type: BLOOD SPECIMENOrdering Facility: [facility] Address: [address] [place] [address] Performed By: #### 2 4320-10, ####[facility] LABIA [id number] [place] [address] [place] Creatinine and Glomerular filtration rate.predicted panel (S/P/Bld) 33 mL/min/1.73m??? Low >=60 [facility] Comment on above: Order Comment: Speci men Type: BLOOD SPECIMENOrdering Facility: [facility] Address: [address] [place] [address] Result Comment: Etta mated Glomerular Filtration Rate [...] actual GFR. Performed By: #### 2 43209-17, ####[facility] LABIA [id number] [place] [address] [place] Glucose [Mass/Vol] 90 mg/dL Normal 74-99 [facility] Comment on above: Order Comment: Speci men Type: BLOOD SPECIMENOrdering Facility: [facility] Address: [address] [place] [address] Result Comment: The [place] [employer] (ADA) provides guidance for cutoff [...] Standards of Medical Care in Diabetes 2016, [place] [employer]. Diabetes Care. 2016.39(Suppl 1). Performed By: #### 2 4320-10, ####[facility] LABCLIA [id number] [place] [address] [place] Potassium [Moles/Vol] 3.8 mmol/L Normal 3.7-5.1 [facility] Comment on above: Order Comment: Speci men Type: BLOOD SPECIMENOrdering Facility: [facility] Address: [address] [place] [address] Performed By: #### 2 4320-10, ####[facility] LABCLIA [id number] [place] [address] [place] Sodium [Moles/Vol] 137 mmol/L Normal 136-144 [facility] Comment on above: Order Comment: Speci men Type: BLOOD SPECIMENOrdering Facility: [facility] Address: [address] [place] [address] Performed By: #### 2 4320-10, ####[facility] LABCLIA [id number] [place] [id number] [place] Urea nitrogen [Mass/Vol] 32 mg/dL High 9-24 [facility] Comment on above: Order Comment: Speci men Type: BLOOD SPECIMENOrdering Facility: [facility] Address: [address] [place] [address] Performed By: #### 2 4320-10, ####[facility] LABCLIA [id number] [place] [address] [place] CBC panel Auto (Bld)on 02-17 Erythrocyte distribution width (RBC) [Ratio] 17.0 % High 11.5-15.0 [facility] Comment on above: Order Comment: Speci men Type: BLOOD SPECIMENOrdering Facility: [facility] Address: [address] [place] [address] Performed By: #### 5 8410-2 ####[facility] LABIA [id number] [place] [address] [place] Hematocrit (Bld) [Volume fraction] 39.9 % Normal 39.0-51.0 [facility] Comment on above: Order Comment: Speci men Type: BLOOD SPECIMENOrdering Facility: [facility] Address: [address] [place] [address] Performed By: #### 5 8410-2 ####[facility] [id number] [place] [address] [place] Hemoglobin (Bld) [Mass/Vol] 12.5 g/dL Low 13.0-17.0 [facility] Comment on above: Order Comment: Speci men Type: BLOOD SPECIMENOrdering Facility: [facility] Address: [address] [place] [address] Performed By: #### 5 8410-2 ####[facility] LABIA [id number] [place] [address] [place] MCH (RBC) [Entitic mass] 26.8 pg Normal 26.0-34.0 [facility] Comment on above: Order Comment: Speci men Type: BLOOD SPECIMENOrdering Facility: [facility] Address: [address] [place] [address] Performed By: #### 5 8410-2 ####[facility] LABIA [id number] [place] [address] [place] MCHC (RBC) [Mass/Vol] 31.3 g/dL Normal 30.5-36.0 [facility] Comment on above: Order Comment: Speci men Type: BLOOD SPECIMENOrdering Facility: [facility] Address: [address] [place] [address] Performed By: #### 5 8410-2 ####[facility] LABCLIA [id number] [place] [address] [place] MCV (RBC) [Entitic vol] 85.6 fL Normal 80.0-100.0 [facility] Comment on above: Order Comment: Speci men Type: BLOOD SPECIMENOrdering Facility: [facility] Address: [address] [place] [address] Performed By: #### 5 8410-2 ####[facility] LABCLIA [id number] [place] [address] [place] Nucleated RBC (Bld) [#/Vol] 10*3/uL Normal <0.01 [facility] Comment on above: Order Comment: Speci men Type: BLOOD SPECIMENOrdering Facility: [facility] Address: [address] [place] [address] Performed By: #### 5 8410-2 ####[facility] LABCLIA [id number] [place] [address] [place] Platelet mean volume (Bld) [Entitic vol] 10.7 fL Normal 9.0-12.7 [facility] Comment on above: Order Comment: Speci men Type: BLOOD SPECIMENOrdering Facility: [facility] Address: [address] [place] [address] Performed By: #### 5 8410-2 ####[facility] LABCLIA [id number] [place] [address] [place] Platelets (Bld) [#/Vol] 226 10*3/uL Normal 150-400 [facility] Comment on above: Order Comment: Speci men Type: BLOOD SPECIMENOrdering Facility: [facility] Address: [address] [place] [address] Performed By: #### 5 8410-2 ####[facility] LABCLIA [id number] [place] [address] [place] RBC (Bld) [#/Vol] 4.66 10*6/uL Normal 4.20-6.00 [facility] Comment on above: Order Comment: Speci men Type: BLOOD SPECIMENOrdering Facility: [facility] Address: [address] [place] [address] Performed By: #### 5 8410-2 ####[facility] LABIA [id number] [place] [address] [place] WBC (Bld) [#/Vol] 6.40 10*3/uL Normal 3.70-11.00 [facility] Comment on above: Order Comment: Speci men Type: BLOOD SPECIMENOrdering Facility: [facility] Address: [address] [place] [address] Performed By: #### 5 8410-2 ####[facility] LABIA [id number] [place] [address] [place] ECG COMPLETEon 02-18-2024 ECG COMPLETE Normal [facility] INTRAOPERATIVE ECHO PREon INTRAOPERATIVE ECHO PRE Normal [facility] Magnesium SerPl-mCncon 02-17 Magnesium [Mass/Vol] 2.6 mg/dL High 1.7-2.3 [facility] Comment on above: Order Comment: Speci men Type: BLOOD SPECIMENOrdering Facility: [facility] Address: [address] [place] [address] Performed By: #### 2 4321-2, 25486-5 ####[facility] LABIA [id number] [place] [address] [place] PT panel Coag (PPP)on 2023 INR Coag (PPP) [Relative time] 1.2 {INR} Normal 0.9-1.3 [facility] Comment on above: Order Comment: Dylan olvera Type: BLOOD SPECIMENOrdering Facility: [facility] Address: [address] [place] [address] Result Comment: Loulou min K Antagonist (VKA) Therapeutic Range: INR 2 to 3 (Target INR of 2.5)Note: For patients treated with VKA drugs, such as warfarin, the [place] [employer] 2012 Guideline recommends [...] al. Chest 2012, 141:7S-47SNishimura RA, et al. [facility] 2017, 70: 252-289 Performed By: #### 3 4528-0, PTTAC ####[facility] LABIA [id number] [place] [address] [place] PT Coag (PPP) [Time] 13.0 s Normal 9.7-13.0 [facility] Comment on above: Order Comment: Dylan olvera Type: BLOOD SPECIMENOrdering Facility: [facility] Address: [address] [place] [address] Performed By: #### 3 4528-0, PTTAC ####[facility] LABIA [id number] [place] [address] [place] PTT, ANTICOAGULANT THERAPYon 02-18-2024 aPTT Coag (PPP) [Time] 57.8 s High 23.0-32.4 [facility] Comment on above: Order Comment: Dylan olvera Type: BLOOD SPECIMENOrdering Facility: [facility] Address: [address] [place] [address] Performed By: #### 3 4528-0, PTTAC ####[facility] LABCLIA [id number] [address] [address] [place] THERAPY NTon 02-18-2024 THERAPY NT Normal [facility] THERAPY NT Normal [facility] ALLIED HEALTHon 02-17-2024 ALLIED HEALTH HNO ID: [id number] Author: FERMIN MIGUEL Chaplain Service: Spiritual Care Author Type: Resident Care Aid Type: Allied Health Filed: 02/17/2024 10:17 Note Text: Accepted anoint.,bless. Normal [facility] Basic metabolic 2000 panelon 02-17-2024 Anion gap [Moles/Vol] 16 mmol/L Normal 9-18 [facility] Comment on above: Order Comment: Speci men Type: BLOOD SPECIMENOrdering Facility: [facility] Address: [address] [place] [address] Performed By: #### 2 2, ####[facility] LABCLIA [id number] [place] [address] [place] Calcium [Mass/Vol] 9.2 mg/dL Normal 8.5-10.2 [facility] Comment on above: Order Comment: Speci men Type: BLOOD SPECIMENOrdering Facility: [facility] Address: [address] [place] [address] Performed By: #### 2 4322, ####[facility] LABCLIA [id number] [address] [address] [place] Chloride [Moles/Vol] 102 mmol/L Normal 97-105 [facility] Comment on above: Order Comment: Speci men Type: BLOOD SPECIMENOrdering Facility: [facility] Address: [address] [place] [id number] Performed By: #### 2 432-2, ####[facility] LABCLIA [id number] [place] [address] [place] CO2 [Moles/Vol] 19 mmol/L Low 22-30 [facility] Comment on above: Order Comment: Speci men Type: BLOOD SPECIMENOrdering Facility: [facility] Address: [address] [place] [address] Performed By: #### 2 432-2, ####[facility] LABCLIA [id number] [place] [address] [place] Creatinine [Mass/Vol] 2.01 mg/dL High 0.73-1.22 [facility] Comment on above: Order Comment: Speci men Type: BLOOD SPECIMENOrdering Facility: [facility] Address: [address] [place] [address] Performed By: #### 2 43209-17, ####[facility] LABCLIA [id number] [place] [address] [place] Creatinine and Glomerular filtration rate.predicted panel (S/P/Bld) 33 mL/min/1.73m??? Low >=60 [facility] Comment on above: Order Comment: Speci men Type: BLOOD SPECIMENOrdering Facility: [facility] Address: [address] [place] [address] Result Comment: Etta mated Glomerular Filtration Rate [...] actual GFR. Performed By: #### 2 4320-10, ####[facility] LABCLIA [id number] [place] [id number] [place] Glucose [Mass/Vol] 100 mg/dL High 74-99 [facility] Comment on above: Order Comment: Speci men Type: BLOOD SPECIMENOrdering Facility: [facility] Address: [address] [place] [address] Result Comment: The [place] Diabetes [employer] (ADA) provides guidance for cutoff [...] Standards of Medical Care in Diabetes 2016, [place] [employer]. Diabetes Care. 2016.39(Suppl 1). Performed By: #### 2 4320-, ####[facility] LABCLIA [id number] [place] [address] [place] Potassium [Moles/Vol] 4.3 mmol/L Normal 3.7-5.1 [facility] Comment on above: Order Comment: Speci men Type: BLOOD SPECIMENOrdering Facility: [facility] Address: [address] [place] [address] Performed By: #### 2 4320-10, ####[facility] LABIA [id number] [place] [address] [place] Sodium [Moles/Vol] 137 mmol/L Normal 136-144 [facility] Comment on above: Order Comment: Speci men Type: BLOOD SPECIMENOrdering Facility: [facility] Address: [address] [place] [address] Performed By: #### 2 4320-10, ####[facility] LABCLIA [id number] [place] [address] [place] Urea nitrogen [Mass/Vol] 35 mg/dL High 9-24 [facility] Comment on above: Order Comment: Speci men Type: BLOOD SPECIMENOrdering Facility: [facility] Address: [address] [place] [address] Performed By: #### 2 4321-2, 69894-6 ####[facility] LABIA [id number] [place] [address] [place] CBC panel Auto (Bld)on 02-16 Erythrocyte distribution width (RBC) [Ratio] 16.8 % High 11.5-15.0 [facility] Comment on above: Order Comment: Speci men Type: BLOOD SPECIMENOrdering Facility: [facility] Address: [address] [place] [address] Performed By: #### 5 8410-2 ####[facility] [id number] [place] [address] [place] Hematocrit (Bld) [Volume fraction] 38.7 % Low 39.0-51.0 [facility] Comment on above: Order Comment: Speci men Type: BLOOD SPECIMENOrdering Facility: [facility] Address: [address] [place] [address] Performed By: #### 5 8410-2 ####[facility] [id number] [place] [address] [place] Hemoglobin (Bld) [Mass/Vol] 11.8 g/dL Low 13.0-17.0 [facility] Comment on above: Order Comment: Speci men Type: BLOOD SPECIMENOrdering Facility: [facility] Address: [address] [place] [address] Performed By: #### 5 8410-2 ####[facility] [id number] [place] [address] [place] MCH (RBC) [Entitic mass] 26.3 pg Normal 26.0-34.0 [facility] Comment on above: Order Comment: Speci men Type: BLOOD SPECIMENOrdering Facility: [facility] Address: [address] [place] [address] Performed By: #### 5 8410-2 ####[facility] LABIA [id number] [place] [address] [place] MCHC (RBC) [Mass/Vol] 30.5 g/dL Normal 30.5-36.0 [facility] Comment on above: Order Comment: Speci men Type: BLOOD SPECIMENOrdering Facility: [facility] Address: [address] [place] [address] Performed By: #### 5 8410-2 ####[facility] LABIA [id number] [place] [address] [place] MCV (RBC) [Entitic vol] 86.4 fL Normal 80.0-100.0 [facility] Comment on above: Order Comment: Speci men Type: BLOOD SPECIMENOrdering Facility: [facility] Address: [address] [place] [address] Performed By: #### 5 8410-2 ####[facility] [id number] [place] [address] [place] Nucleated RBC (Bld) [#/Vol] 10*3/uL Normal <0.01 [facility] Comment on above: Order Comment: Speci men Type: BLOOD SPECIMENOrdering Facility: [facility] Address: [address] [place] [address] Performed By: #### 5 8410-2 ####[facility] [id number] [place] [address] [place] Platelet mean volume (Bld) [Entitic vol] 10.6 fL Normal 9.0-12.7 [facility] Comment on above: Order Comment: Speci men Type: BLOOD SPECIMENOrdering Facility: [facility] Address: [address] [place] [address] Performed By: #### 5 8410-2 ####[facility] LABIA [id number] [place] [address] [place] Platelets (Bld) [#/Vol] 214 10*3/uL Normal 150-400 [facility] Comment on above: Order Comment: Speci men Type: BLOOD SPECIMENOrdering Facility: [facility] Address: [address] [place] [address] Performed By: #### 5 8410-2 ####[facility] LABCLIA [id number] [place] [address] [place] RBC (Bld) [#/Vol] 4.48 10*6/uL Normal 4.20-6.00 [facility] Comment on above: Order Comment: Speci men Type: BLOOD SPECIMENOrdering Facility: [facility] Address: [address] [place] [address] Performed By: #### 5 8410-2 ####[facility] LABCLIA [id number] [place] [address] [place] WBC (Bld) [#/Vol] 6.75 10*3/uL Normal 3.70-11.00 [facility] Comment on above: Order Comment: Speci men Type: BLOOD SPECIMENOrdering Facility: [facility] Address: [address] [place] [address] Performed By: #### 5 8410-2 ####[facility] LABCLIA [id number] [place] [address] [place] CNOVon 02-17-2024 CNOV Normal [facility] CONSULTon 02-17-2024 CONSULT Normal [facility] CONSULT Normal [facility] CONSULT PROGon 02-17-2024 CONSULT PROG Normal [facility] ECG COMPLETEon 02-17-2024 ECG COMPLETE Normal [facility] Magnesium SerPl-mCncon 02-16 Magnesium [Mass/Vol] 2.9 mg/dL High 1.7-2.3 [facility] Comment on above: Order Comment: Speci men Type: BLOOD SPECIMENOrdering Facility: [facility] Address: [address] [place] [address] Performed By: #### 2 4321-2, ####[facility] LABCLIA [id number] [place] [id number] [place] NUTRITIONon 02-17-2024 NUTRITION Normal [facility] PTT, ANTICOAGULANT THERAPYon 02-17-2024 aPTT Coag (PPP) [Time] 33.3 s High 23.0-32.4 [facility] Comment on above: Order Comment: Speci men Type: BLOOD SPECIMENOrdering Facility: [facility] Address: [address] [place] [address] Performed By: #### P TTAC ####[facility] LABIA [id number] [place] [address] [place] XR ESOPHAGRAMon 02-17-2024 XR ESOPHAGRAM Normal [facility] Basic metabolic 2000 panelon 02-16-2024 Anion gap [Moles/Vol] 11 mmol/L Normal 9-18 [facility] Comment on above: Order Comment: Speci men Type: BLOOD SPECIMENOrdering Facility: [facility] Address: [address] [place] [address] Performed By: #### 2 4321-2, ####[facility] LABIA [id number] [place] [address] [place] Calcium [Mass/Vol] 9.3 mg/dL Normal 8.5-10.2 [facility] Comment on above: Order Comment: Speci men Type: BLOOD SPECIMENOrdering Facility: [facility] Address: [address] [place] [address] Performed By: #### 2 4321-2, ####[facility] LABIA [id number] [place] [address] [place] Chloride [Moles/Vol] 101 mmol/L Normal 97-105 [facility] Comment on above: Order Comment: Speci men Type: BLOOD SPECIMENOrdering Facility: [facility] Address: [address] [place] [address] Performed By: #### 2 4321-2, ####[facility] LABCLIA [id number] [place] [id number] [place] CO2 [Moles/Vol] 24 mmol/L Normal 22-30 [facility] Comment on above: Order Comment: Speci men Type: BLOOD SPECIMENOrdering Facility: [facility] Address: [address] [place] [address] Performed By: #### 2 432-2, ####[facility] LABIA [id number] [place] [address] [place] Creatinine [Mass/Vol] 2.13 mg/dL High 0.73-1.22 [facility] Comment on above: Order Comment: Speci men Type: BLOOD SPECIMENOrdering Facility: [facility] Address: [address] [place] [address] Performed By: #### 2 43209-17, ####[facility] LABIA [id number] [place] [address] [place] Creatinine and Glomerular filtration rate.predicted panel (S/P/Bld) 31 mL/min/1.73m??? Low >=60 [facility] Comment on above: Order Comment: Speci men Type: BLOOD SPECIMENOrdering Facility: [facility] Address: [address] [place] [address] Result Comment: Etta mated Glomerular Filtration Rate [...] actual GFR. Performed By: #### 2 4321-2, ####[facility] LABIA [id number] [place] [id number] [place] Glucose [Mass/Vol] 107 mg/dL High 74-99 [facility] Comment on above: Order Comment: Speci men Type: BLOOD SPECIMENOrdering Facility: [facility] Address: [address] [place] [address] Result Comment: The [place] [employer] (ADA) provides guidance for cutoff [...] Standards of Medical Care in Diabetes 2016, [place] [employer]. Diabetes Care. 2016.39(Suppl 1). Performed By: #### 2 4320-10, ####[facility] LABCLIA [id number] [place] [address] [place] Potassium [Moles/Vol] 3.9 mmol/L Normal 3.7-5.1 [facility] Comment on above: Order Comment: Rozi men Type: BLOOD SPECIMENOrdering Facility: [facility] Address: [address] [place] [address] Performed By: #### 2 4320-10, ####[facility] [facility] LABCLIA [id number] [place] [address] [place] Sodium [Moles/Vol] 136 mmol/L Normal 136-144 [facility] Comment on above: Order Comment: Speci men Type: BLOOD SPECIMENOrdering Facility: [facility] Address: [address] [place] [address] Performed By: #### 2 4320-10, ####[facility] LABCLIA [id number] [place] [address] [place] Urea nitrogen [Mass/Vol] 35 mg/dL High 9-24 [facility] Comment on above: Order Comment: Speci men Type: BLOOD SPECIMENOrdering Facility: [facility] Address: [address] [place] [address] Performed By: #### 2 4321-2, 72564-5 ####[facility] LABCLIA [id number] [place] [address] [place] CASE MGT INIT ASSESon 2023 CASE MGT INIT ASSES Normal [facility] CBC W Auto Differential pane l (Bld)on 02-16-2024 Basophils (Bld) [#/Vol] 0.03 10*3/uL Normal <0.11 [facility] Comment on above: Order Comment: Speci men Type: BLOOD SPECIMENOrdering Facility: [facility] Address: [address] [place] [address] Performed By: #### 5 5454-3, 58473-2 ####[facility] LABCLIA [id number] [place] [address] [place] Basophils/100 WBC (Bld) 0.5 % Normal [facility] Comment on above: Order Comment: Speci men Type: BLOOD SPECIMENOrdering Facility: [facility] Address: [address] [place] [address] Performed By: #### 5 5454-3, 24134-7 ####[facility] LABCLIA [id number] [place] [address] [place] Differential cell count method Nom (Bld) Auto Normal [facility] Comment on above: Order Comment: Speci men Type: BLOOD SPECIMENOrdering Facility: [facility] Address: [address] [place] [address] Performed By: #### 5 5454-3, 56491-8 ####[facility] LABCLIA [id number] [place] [address] [place] Eosinophils (Bld) [#/Vol] 0.47 10*3/uL High <0.46 [facility] Comment on above: Order Comment: Speci men Type: BLOOD SPECIMENOrdering Facility: [facility] Address: [address] [place] [address] Performed By: #### 5 5454-3, 78413-8 ####[facility] LABCLIA [id number] [place] [address] [place] Eosinophils/100 WBC (Bld) 7.4 % Normal [facility] Comment on above: Order Comment: Speci men Type: BLOOD SPECIMENOrdering Facility: [facility] Address: [address] [place] [address] Performed By: #### 5 5454-3, 62800-3 ####[facility] LABCLIA [id number] [place] [address] [place] Erythrocyte distribution width (RBC) [Ratio] 16.5 % High 11.5-15.0 [facility] Comment on above: Order Comment: Speci men Type: BLOOD SPECIMENOrdering Facility: [facility] Address: [address] [place] [address] Performed By: #### 5 5454-3, 42718-0 ####[facility] LABCLIA [id number] [place] [address] [place] Hematocrit (Bld) [Volume fraction] 37.4 % Low 39.0-51.0 [facility] Comment on above: Order Comment: Speci men Type: BLOOD SPECIMENOrdering Facility: [facility] Address: [address] [place] [address] Performed By: #### 5 5454-3, 29918-8 ####[facility] LABCLIA [id number] [place] [address] [place] Hemoglobin (Bld) [Mass/Vol] 11.7 g/dL Low 13.0-17.0 [facility] Comment on above: Order Comment: Speci men Type: BLOOD SPECIMENOrdering Facility: [facility] Address: [address] [place] [address] Performed By: #### 5 5454-3, 23525-5 ####[facility] LABCLIA [id number] [place] [address] [place] Immature granulocytes (Bld) [#/Vol] 0.03 10*3/uL Normal <0.10 [facility] Comment on above: Order Comment: Speci men Type: BLOOD SPECIMENOrdering Facility: [facility] Address: [address] [place] [address] Performed By: #### 5 5454-3, 27869-3 ####[facility] LABCLIA [id number] [place] [address] [place] Immature granulocytes/100 WBC (Bld) 0.5 % Normal [facility] Comment on above: Order Comment: Speci men Type: BLOOD SPECIMENOrdering Facility: [facility] Address: [address] [place] [address] Performed By: #### 5 5454-3, 94798-1 ####[facility] LABCLIA [id number] [place] [address] [place] Lymphocytes (Bld) [#/Vol] 0.90 10*3/uL Low 1.00-4.00 [facility] Comment on above: Order Comment: Speci men Type: BLOOD SPECIMENOrdering Facility: [facility] Address: [address] [place] [address] Performed By: #### 5 5454-3, 13868-3 ####[facility] LABCLIA [id number] [place] [address] [place] Lymphocytes/100 WBC (Bld) 14.2 % Normal [facility] Comment on above: Order Comment: Speci men Type: BLOOD SPECIMENOrdering Facility: [facility] Address: [address] [place] [address] Performed By: #### 5 5454-3, 82161-4 ####[facility] LABCLIA [id number] [place] [address] [place] MCH (RBC) [Entitic mass] 26.8 pg Normal 26.0-34.0 [facility] Comment on above: Order Comment: Speci men Type: BLOOD SPECIMENOrdering Facility: [facility] Address: [address] [place] [address] Performed By: #### 5 5454-3, 70294-7 ####[facility] LABCLIA [id number] [place] [address] [place] MCHC (RBC) [Mass/Vol] 31.3 g/dL Normal 30.5-36.0 [facility] Comment on above: Order Comment: Speci men Type: BLOOD SPECIMENOrdering Facility: [facility] Address: [address] [place] [address] Performed By: #### 5 5454-3, 54134-3 ####[facility] LABIA [id number] [place] [address] [place] MCV (RBC) [Entitic vol] 85.8 fL Normal 80.0-100.0 [facility] Comment on above: Order Comment: Speci men Type: BLOOD SPECIMENOrdering Facility: [facility] Address: [address] [place] [address] Performed By: #### 5 5454-3, 73256-9 ####[facility] LABIA [id number] [place] [id number] [place] Monocytes (Bld) [#/Vol] 0.64 10*3/uL Normal <0.87 [facility] Comment on above: Order Comment: Speci men Type: BLOOD SPECIMENOrdering Facility: [facility] Address: [address] [place] [address] Performed By: #### 5 5454-3, 03613-4 ####[facility] LABCLIA [id number] [place] [address] [place] Monocytes/100 WBC (Bld) 10.1 % Normal [facility] Comment on above: Order Comment: Speci men Type: BLOOD SPECIMENOrdering Facility: [facility] Address: [address] [place] [address] Performed By: #### 5 5454-3, 29332-8 ####[facility] LABCLIA [id number] [place] [address] [place] Neutrophils (Bld) [#/Vol] 4.28 10*3/uL Normal 1.45-7.50 [facility] Comment on above: Order Comment: Speci men Type: BLOOD SPECIMENOrdering Facility: [facility] Address: [address] [place] [address] Performed By: #### 5 5454-3, 32087-1 ####[facility] LABCLIA [id number] [place] [address] [place] Neutrophils/100 WBC (Bld) 67.3 % Normal [facility] Comment on above: Order Comment: Speci men Type: BLOOD SPECIMENOrdering Facility: [facility] Address: [address] [place] [address] Performed By: #### 5 5454-3, 92499-0 ####[facility] LABCLIA [id number] [place] [address] [place] Nucleated RBC (Bld) [#/Vol] 10*3/uL Normal <0.01 [facility] Comment on above: Order Comment: Speci men Type: BLOOD SPECIMENOrdering Facility: [facility] Address: [address] [place] [address] Performed By: #### 5 5454-3, 05274-0 ####[facility] LABCLIA [id number] [place] [address] [place] Nucleated RBC/100 WBC (Bld) [Ratio] 0.0 /100 WBC Normal [facility] Comment on above: Order Comment: Speci men Type: BLOOD SPECIMENOrdering Facility: [facility] Address: [address] [place] [address] Performed By: #### 5 5454-3, 32037-7 ####[facility] LABCLIA [id number] [place] [address] [place] Platelet mean volume (Bld) [Entitic vol] 10.6 fL Normal 9.0-12.7 [facility] Comment on above: Order Comment: Speci men Type: BLOOD SPECIMENOrdering Facility: [facility] Address: [address] [place] [address] Performed By: #### 5 5454-3, 52079-7 ####[facility] LABCLIA [id number] [place] [address] [place] Platelets (Bld) [#/Vol] 201 10*3/uL Normal 150-400 [facility] Comment on above: Order Comment: Speci men Type: BLOOD SPECIMENOrdering Facility: [facility] Address: [address] [place] [address] Performed By: #### 5 5454-3, 52058-9 ####[facility] LABCLIA [id number] [place] [address] [place] RBC (Bld) [#/Vol] 4.36 10*6/uL Normal 4.20-6.00 [facility] Comment on above: Order Comment: Speci men Type: BLOOD SPECIMENOrdering Facility: [facility] Address: [address] [place] [address] Performed By: #### 5 5454-3, 40020-6 ####[facility] LABCLIA [id number] [place] [address] [place] WBC (Bld) [#/Vol] 6.35 10*3/uL Normal 3.70-11.00 [facility] Comment on above: Order Comment: Speci men Type: BLOOD SPECIMENOrdering Facility: [facility] Address: [address] [place] [address] Performed By: #### 5 5454-3, 59394-2 ####[facility] LABCLIA [id number] [address] [address] [place] Comprehensive metabolic 2000 panelon 02-16-2024 Albumin [Mass/Vol] 2.9 g/dL Low 3.9-4.9 [facility] Comment on above: Order Comment: Speci men Type: BLOOD SPECIMENOrdering Facility: [facility] Address: [address] [place] [address] Performed By: #### L IPNF, 6-4, 12979-8, 62789-1, 52827-3 ####[facility] LABCLIA [id number] [place] [address] [place] ALP [Catalytic activity/Vol] 97 U/L Normal 38-113 [facility] Comment on above: Order Comment: Speci men Type: BLOOD SPECIMENOrdering Facility: [facility] Address: [address] [place] [address] Performed By: #### L IPNF, 6-4, 12389-8, 12381-0, 52495-3 ####[facility] LABIA [id number] [place] [address] [place] ALT [Catalytic activity/Vol] 15 U/L Normal 10-54 [facility] Comment on above: Order Comment: Speci men Type: BLOOD SPECIMENOrdering Facility: [facility] Address: [address] [place] [address] Performed By: #### L IPNF, 6-4, 97331-3, 08456-5, 29968-0 ####[facility] LABCLIA [id number] [address] [address] [place] Anion gap [Moles/Vol] 14 mmol/L Normal 9-18 [facility] Comment on above: Order Comment: Speci men Type: BLOOD SPECIMENOrdering Facility: [facility] Address: [address] [place] [address] Performed By: #### L IPNF, 6-4, 39602-0, 40752-6, 00662-5 ####[facility] LABCLIA [id number] [place] [address] [place] AST [Catalytic activity/Vol] 30 U/L Normal 14-40 [facility] Comment on above: Order Comment: Speci men Type: BLOOD SPECIMENOrdering Facility: [facility] Address: [address] [place] [address] Result Comment: Resu lts may be falsely increased due to interference from hemolysis. Suggest reorder as clinically indicated. Performed By: #### L IPNF, 6-4, 77438-2, 73934-7, 50522-1 ####[facility] LABCLIA [id number] [place] [address] [place] Bilirubin [Mass/Vol] 0.8 mg/dL Normal 0.2-1.3 [facility] Comment on above: Order Comment: Speci men Type: BLOOD SPECIMENOrdering Facility: [facility] Address: [address] [place] [address] Performed By: #### L IPNF, 6-4, 64305-2, 50523-8, 71386-8 ####[facility] LABCLIA [id number] [place] [address] [place] Calcium [Mass/Vol] 9.3 mg/dL Normal 8.5-10.2 [facility] Comment on above: Order Comment: Speci men Type: BLOOD SPECIMENOrdering Facility: [facility] Address: [address] [place] [address] Performed By: #### L IPNF, 6-4, 54760-3, 89193-1, 03967-8 ####[facility] LABCLIA [id number] [place] [address] [place] Chloride [Moles/Vol] 102 mmol/L Normal 97-105 [facility] Comment on above: Order Comment: Speci men Type: BLOOD SPECIMENOrdering Facility: [facility] Address: [address] [place] [address] Performed By: #### L IPNF, 2276-4, 39600-9, 15444-6, 70344-1 ####[facility] LABCLIA [id number] [place] [address] [place] CO2 [Moles/Vol] 21 mmol/L Low 22-30 [facility] Comment on above: Order Comment: Speci men Type: BLOOD SPECIMENOrdering Facility: [facility] Address: [address] [place] [address] Performed By: #### L IPNF, 6-4, 87178-1, 55157-6, 00636-7 ####[facility] LABCLIA [id number] [place] [address] [place] Creatinine [Mass/Vol] 2.02 mg/dL High 0.73-1.22 [facility] Comment on above: Order Comment: Speci men Type: BLOOD SPECIMENOrdering Facility: [facility] Address: [address] [place] [address] Performed By: #### L IPNF, 6-4, 00428-0, 23927-1, 62969-9 ####[facility] LABIA [id number] [place] [address] [place] Creatinine and Glomerular filtration rate.predicted panel (S/P/Bld) 33 mL/min/1.73m??? Low >=60 [facility] Comment on above: Order Comment: Speci men Type: BLOOD SPECIMENOrdering Facility: [facility] Address: [address] [place] [address] Result Comment: Etta mated Glomerular Filtration Rate [...] GFR. Performed By: #### L SANIYA, 2275-4, 94091-6, 43269-5, 60808-1 ####[facility] LABCLIA [id number] [address] [address] [place] Glucose [Mass/Vol] 112 mg/dL High 74-99 [facility] Comment on above: Order Comment: Speci men Type: BLOOD SPECIMENOrdering Facility: [facility] Address: [address] [place] [address] Result Comment: The [place] Diabetes Association (ADA) provides guidance for cutoff [...] Standards of Medical Care in Diabetes 2016, [place] Diabetes Association. Diabetes Care. 2016.39(Suppl 1). Performed By: #### L SANIYA, 2275-4, , 73061-2, 62915-7 ####[facility] LABCLIA [id number] [address] [address] [place] Potassium [Moles/Vol] 3.9 mmol/L Normal 3.7-5.1 [facility] Comment on above: Order Comment: Dylan olvera Type: BLOOD SPECIMENOrdering Facility: [facility] Address: [address] [place] [address] Performed By: #### L SANIYA, 2275-4, 16089-7, 97440-0, 57788-9 ####[facility] LABCLIA [id number] [address] [address] [place] Protein [Mass/Vol] 6.3 g/dL Normal 6.3-8.0 [facility] Comment on above: Order Comment: Speci men Type: BLOOD SPECIMENOrdering Facility: [facility] Address: [address] [place] [address] Performed By: #### L IPNF, 2276-4, 62405-7, 46328-4, 01439-6 ####[facility] LABCLIA [id number] [place] [address] [place] Sodium [Moles/Vol] 137 mmol/L Normal 136-144 [facility] Comment on above: Order Comment: Speci men Type: BLOOD SPECIMENOrdering Facility: [facility] Address: [address] [place] [address] Performed By: #### L IPNF, 6-4, 14581-2, 25625-0, 80221-0 ####[facility] LABIA [id number] [place] [id number] [place] Urea nitrogen [Mass/Vol] 37 mg/dL High 9-24 [facility] Comment on above: Order Comment: Speci men Type: BLOOD SPECIMENOrdering Facility: [facility] Address: [address] [place] [address] Performed By: #### L IPNF, 6-4, 82336-2, 86194-0, 44866-1 ####[facility] LABCLIA [id number] [place] [id number] [place] UFF99um 02-16-2024 ECG01 Normal [facility] ECG01 Normal [facility] Ferritin SerPl-mCncon 2023 Ferritin [Mass/Vol] 377.0 ng/mL Normal 30.3-565.7 [facility] Comment on above: Order Comment: Speci men Type: BLOOD SPECIMENOrdering Facility: [facility] Address: [address] [place] [address] Performed By: #### L IPNF, 2276-4, 90631-6, 22752-1, 34879-8 ####[facility] LABCLIA [id number] [place] [address] [place] HISTORY PHYSICALon HISTORY PHYSICAL Normal [facility] HbA1c (Bld)on 02-16-2024 Average glucose Estimated from glycated hemoglobin (Bld) [Mass/Vol] 128 mg/dL Normal [facility] Comment on above: Order Comment: Dylan olvera Type: BLOOD SPECIMENOrdering Facility: [facility] Address: [address] [place] [address] Result Comment: eAG: (Estimated average glucose) is a calculated value from HgbA1c and is telemarketing representative of the average blood glucose level in the last 2-3 month period. Performed By: #### 5 5454-3, 54138-8 ####[facility] LABIA [id number] [place] [address] [place] HbA1c (Bld) [Mass fraction] 6.1 % High 4.3-5.6 [facility] Comment on above: Order Comment: Dylan olvera Type: BLOOD SPECIMENOrdering Facility: [facility] Address: [address] [place] [address] Result Comment: [place] Diabetes Association guidelines indicate that patients with HgbA1c in the range 5.7-6.4% are at increased risk for development of diabetes, and intervention by lifestyle modification may be beneficial. HgbA1c greater or equal to 6.5% is considered diagnostic of diabetes. Performed By: #### 5 5454-3, 43215-5 ####[facility] LABIA [id number] [place] [id number] [place] LIPID PANEL, NONFASTINGon Cholesterol [Mass/Vol] 118 mg/dL Normal <200 [facility] Comment on above: Order Comment: Dylan olvera Type: BLOOD SPECIMENOrdering Facility: [facility] Address: [address] [place] [address] Result Comment: <200 mg/dL, Desirable 200-239 mg/dL, Borderline high>239 mg/dL, High Performed By: #### L IPNF, 6-4, 32767-1, 82236-2, 13943-3 ####[facility] LABCLIA [id number] [place] [address] [place] HDL CHOLESTEROL, NF 28 mg/dL Low >39 [facility] Comment on above: Order Comment: Speci men Type: BLOOD SPECIMENOrdering Facility: [facility] Address: [address] [place] [address] Result Comment: 40-5 9 mg/dL, Acceptable>59 mg/dL, High: Negative risk factor for coronary heart disease<40 mg/dL, Low: Positive risk factor for coronary heart disease Performed By: #### L IPNF, 2275-4, 35512-6, 58730-0, 57407-0 ####[facility] LABCLIA [id number] [place] [address] [place] LDL CHOLESTEROL, NF 75 mg/dL Normal <100 [facility] Comment on above: Order Comment: Speci men Type: BLOOD SPECIMENOrdering Facility: [facility] Address: [address] [place] [address] Result Comment: <100 mg/dL, Optimal 100-129 mg/dL, Near optimal/above optimal 130-159 mg/dL, Borderline high 160-189 mg/dL, High>189 mg/dL, Very highSecondary prevention optimal LDL Cholesterol levels are recommended to be < 70 mg/dL Performed By: #### L IPNF, 2275-4, 53990-5, 71237-6, 76691-4 ####[facility] LABCLIA [id number] [place] [address] [place] LDL/HDL RATIO, NF 2.68 mg/dL High <2.54 [facility] Comment on above: Order Comment: Speci men Type: BLOOD SPECIMENOrdering Facility: [facility] Address: [address] [place] [address] Result Comment: Rukhsana pate:1. National Cholesterol Education Program ATP III Guideline At-A-Glance Quick Desk Reference: National Heart, Lung, and Blood [place]. National Institutes of Health. 2001: NIH Publication No. 01-3305.2. An International Atherosclerosis Society position paper: global recommendations for the management of dyslipidemia: executive summary, Atherosclerosis. 2014: 232(2):410-413. Performed By: #### L IPNF, 6-4, 37359-3, 15593-4, 60470-2 ####[facility] LABCLIA [id number] [place] [address] [place] NON HDL CHOL, NF 90 mg/dL Normal <130 [facility] Comment on above: Order Comment: Speci men Type: BLOOD SPECIMENOrdering Facility: [facility] Address: [address] [place] [address] Result Comment: <130 mg/dL, Optimal 130-159 mg/dL, Near optimal/above optimal 160-189 mg/dL, Borderline high 190-219 mg/dL, High>219 mg/dL, Very highSecondary prevention optimal non HDL Cholesterol levels are recommended to be <100 mg/dL Performed By: #### L IPNF, 6-4, 54017-0, 27773-8, 44709-2 ####[facility] LABCLIA [id number] [place] [address] [place] T CHOL/HDL RATIO NF 4.21 mg/dL Normal <5.10 [facility] Comment on above: Order Comment: Speci men Type: BLOOD SPECIMENOrdering Facility: [facility] Address: [address] [place] [address] Performed By: #### L IPNF, 6-4, 25346-9, 21916-9, 30736-7 ####[facility] LABCLIA [id number] [place] [address] [place] TRIGLYCERIDES, NF 74 mg/dL Normal <150 [facility] Comment on above: Order Comment: Speci men Type: BLOOD SPECIMENOrdering Facility: [facility] Address: [address] [place] [address] Result Comment: <150 mg/dL, Normal 150-199 mg/dL, Borderline high 200-499 mg/dL, High>499 mg/dL, Very high Performed By: #### L IPNF, 2275-4, 31373-7, 11401-6, 35882-5 ####[facility] LABCLIA [id number] [place] [address] [place] VLDL CHOLESTEROL, NF 15 mg/dL Normal <30 [facility] Comment on above: Order Comment: Speci men Type: BLOOD SPECIMENOrdering Facility: [facility] Address: [address] [place] [address] Performed By: #### L IPNF, 4, , 02638-7, 74539-1 ####[facility] LABCLIA [id number] [place] [address] [place] Magnesium SerPl-mCncon 02-15 Magnesium [Mass/Vol] 2.5 mg/dL High 1.7-2.3 [facility] Comment on above: Order Comment: Speci men Type: BLOOD SPECIMENOrdering Facility: [facility] Address: [address] [place] [address] Performed By: #### 2 4321-2, ####[facility] LABCLIA [id number] [place] [address] [place] Magnesium [Mass/Vol] 2.5 mg/dL High 1.7-2.3 [facility] Comment on above: Order Comment: Speci men Type: BLOOD SPECIMENOrdering Facility: [facility] Address: [address] [place] [address] Performed By: #### L IPNF, 2275-4, 85594-2, 72122-4, 59918-5 ####[facility] LABCLIA [id number] [place] [address] [place] [facility] Natriuretic peptide.B prohormone N-Terminal [Mass/Vol] 57905 pg/mL High <450 [facility] Comment on above: Order Comment: Speci men Type: BLOOD SPECIMENOrdering Facility: [facility] Address: [address] [place] [address] Performed By: #### L IPNF, 2276-4, 84492-2, 91049-7, 14059-8 ####[facility] LABCLIA [id number] [place] [address] [place] PT EDon 02-16-2024 PT ED Normal [facility] TYPE + SCREENon 02-16-2024 ABO O Normal [facility] Comment on above: Order Comment: Speci men Type: BLOOD SPECIMENOrdering Facility: [facility] Address: [address] [place] [address] Performed By: #### T SCR ####CC [facility] BLOOD BANKIA [id number] [address] [place] HISTORICAL AB SCR STATUS Negative Normal [facility] Comment on above: Order Comment: Speci men Type: BLOOD SPECIMENOrdering Facility: [facility] Address: [address] [place] [address] Performed By: #### T SCR ####CC [facility] BLOOD BANKCLIA [id number] [place] [address] [place] Rh Nom (Bld) Positive Normal [facility] Comment on above: Order Comment: Speci men Type: BLOOD SPECIMENOrdering Facility: [facility] Address: [address] [place] [address] Performed By: #### T SCR ####CC [facility] BLOOD BANKIA [id number] [place] [address] [place] TYPE AND SCREEN EXPIRATION 2024 23:59 Normal [facility] Comment on above: Order Comment: Speci men Type: BLOOD SPECIMENOrdering Facility: [facility] Address: [address] [place] [address] Performed By: #### T SCR ####CC [facility] BLOOD BANKCLIA [id number] [place] [address] [place] XR CHEST 1V FRONTAL PORTon 0 02-15-2024 XR CHEST 1V FRONTAL PORT Normal [facility] 25(OH)D3 SerPl-mCncon 2023 25-hydroxyvitamin D3 [Mass/Vol] 65.1 ng/mL Normal 31.0-80.0 [facility] Comment on above: Order Comment: Speci men Type: BLOOD SPECIMENOrdering Facility: [facility] Address: [address] [place] [address] Result Comment: Clas sification of 25 [place] Vitamin D status:Deficiency/Insufficiency: < or = 30 ng/ml.Sufficiency/Optimal Levels: 31-80 ng/mLToxicity: > 100 ng/mL.Test performed by chemiluminescent immunoassay. Performed By: #### 1 989-3 ####[facility] LABCLIA [id number] [place] [address] [place] CBC W Auto Differential pane l (Bld)on 02-13-2024 Basophils (Bld) [#/Vol] 0.07 10*3/uL Normal <0.11 [facility] Comment on above: Order Comment: Speci men Type: BLOOD SPECIMENOrdering Facility: [facility] Address: [address] [place] [address] Performed By: #### 5 7021-8 ####VIANNEY [facility] LABCLIA [id number] [place] [address] Basophils/100 WBC (Bld) 0.8 % Normal [facility] Comment on above: Order Comment: Speci men Type: BLOOD SPECIMENOrdering Facility: [facility] Address: [address] [place] [address] Performed By: #### 5 7021-8 ####[facility] LABCLIA [id number] [place] [address] Differential cell count method Nom (Bld) Auto Normal [facility] Comment on above: Order Comment: Speci men Type: BLOOD SPECIMENOrdering Facility: [facility] Address: [address] [place] [address] Performed By: #### 5 7021-8 ####[facility] LABCLIA [id number] [place] [address] Eosinophils (Bld) [#/Vol] 0.40 10*3/uL Normal <0.46 [facility] Comment on above: Order Comment: Speci men Type: BLOOD SPECIMENOrdering Facility: [facility] Address: [address] [place] [address] Performed By: #### 5 7021-8 ####[facility] LABCLIA [id number] [place] [address] Eosinophils/100 WBC (Bld) 4.7 % Normal [facility] Comment on above: Order Comment: Speci men Type: BLOOD SPECIMENOrdering Facility: [facility] Address: [address] [place] [address] Performed By: #### 5 7021-8 ####[facility] LABCLIA [id number] [place] [address] Erythrocyte distribution width (RBC) [Ratio] 16.6 % High 11.5-15.0 [facility] Comment on above: Order Comment: Speci men Type: BLOOD SPECIMENOrdering Facility: [facility] Address: [address] [place] [address] Performed By: #### 5 7021-8 ####[facility] LABCLIA [id number] [place] [address] Hematocrit (Bld) [Volume fraction] 42.2 % Normal 39.0-51.0 [facility] Comment on above: Order Comment: Speci men Type: BLOOD SPECIMENOrdering Facility: [facility] Address: [address] [place] [address] Performed By: #### 5 7021-8 ####[facility] LABCLIA [id number] [place] [address] Hemoglobin (Bld) [Mass/Vol] 13.1 g/dL Normal 13.0-17.0 [facility] Comment on above: Order Comment: Speci men Type: BLOOD SPECIMENOrdering Facility: [facility] Address: [address] [place] [address] Performed By: #### 5 7021-8 ####[facility] LABCLIA [id number] [place] [address] Immature granulocytes (Bld) [#/Vol] 0.04 10*3/uL Normal <0.10 [facility] Comment on above: Order Comment: Speci men Type: BLOOD SPECIMENOrdering Facility: [facility] Address: [address] [place] [address] Performed By: #### 5 7021-8 ####VERDIMICHAEL [facility] LABCLIA [id number] [place] [address] Immature granulocytes/100 WBC (Bld) 0.5 % Normal [facility] Comment on above: Order Comment: Speci men Type: BLOOD SPECIMENOrdering Facility: [facility] Address: [address] [place] [address] Performed By: #### 5 7021-8 ####[facility] LABCLIA [id number] [place] [address] Lymphocytes (Bld) [#/Vol] 0.93 10*3/uL Low 1.00-4.00 [facility] Comment on above: Order Comment: Speci men Type: BLOOD SPECIMENOrdering Facility: [facility] Address: [address] [place] [address] Performed By: #### 5 7021-8 ####[facility] LABCLIA [id number] [place] [address] Lymphocytes/100 WBC (Bld) 10.8 % Normal [facility] Comment on above: Order Comment: Speci men Type: BLOOD SPECIMENOrdering Facility: [facility] Address: [address] [place] [address] Performed By: #### 5 7021-8 ####[facility] LABCLIA [id number] [place] [address] MCH (RBC) [Entitic mass] 27.0 pg Normal 26.0-34.0 [facility] Comment on above: Order Comment: Speci men Type: BLOOD SPECIMENOrdering Facility: [facility] Address: [address] [place] [address] Performed By: #### 5 7021-8 ####[facility] LABCLIA [id number] [place] [address] MCHC (RBC) [Mass/Vol] 31.0 g/dL Normal 30.5-36.0 [facility] Comment on above: Order Comment: Speci men Type: BLOOD SPECIMENOrdering Facility: [facility] Address: [address] [place] [address] Performed By: #### 5 7021-8 ####[facility] LABCLIA [id number] [place] [address] MCV (RBC) [Entitic vol] 86.8 fL Normal 80.0-100.0 [facility] Comment on above: Order Comment: Speci men Type: BLOOD SPECIMENOrdering Facility: [facility] Address: [address] [place] [address] Performed By: #### 5 7021-8 ####[facility] LABCLIA [id number] [place] [address] Monocytes (Bld) [#/Vol] 0.84 10*3/uL Normal <0.87 [facility] Comment on above: Order Comment: Speci men Type: BLOOD SPECIMENOrdering Facility: [facility] Address: [facility] [place] [address] Performed By: #### 5 7021-8 ####[facility]ENTERBHARATH[facility] LABCLIA [id number] [place] [address] Monocytes/100 WBC (Bld) 9.8 % Normal [facility] Comment on above: Order Comment: Speci men Type: BLOOD SPECIMENOrdering Facility: [facility] Address: [address] [place] [address] Performed By: #### 5 7021-8 ####[facility] LABCLIA [id number] [place] [address] Neutrophils (Bld) [#/Vol] 6.31 10*3/uL Normal 1.45-7.50 [facility] Comment on above: Order Comment: Speci men Type: BLOOD SPECIMENOrdering Facility: [facility] Address: [address] [place] [address] Performed By: #### 5 7021-8 ####[facility]ENTERBHARATH[facility] LABCLIA [id number] [place] [address] Neutrophils/100 WBC (Bld) 73.4 % Normal [facility] Comment on above: Order Comment: Speci men Type: BLOOD SPECIMENOrdering Facility: [facility] Address: [address] [place] [address] Performed By: #### 5 7021-8 ####[facility] LABCLIA [id number] [place] [address] Nucleated RBC (Bld) [#/Vol] 10*3/uL Normal <0.01 [facility] Comment on above: Order Comment: Speci men Type: BLOOD SPECIMENOrdering Facility: [facility] Address: [address] [place] [address] Performed By: #### 5 7021-8 ####[facility] LABCLIA [id number] [place] [address] Nucleated RBC/100 WBC (Bld) [Ratio] 0.0 /100 WBC Normal [facility] Comment on above: Order Comment: Speci men Type: BLOOD SPECIMENOrdering Facility: [facility] Address: [address] [place] [address] Performed By: #### 5 7021-8 ####[facility] LABCLIA [id number] [place] [address] Platelet mean volume (Bld) [Entitic vol] 10.2 fL Normal 9.0-12.7 [facility] Comment on above: Order Comment: Speci men Type: BLOOD SPECIMENOrdering Facility: [facility] Address: [address] [place] [address] Performed By: #### 5 7021-8 ####[facility] LABCLIA [id number] [place] [address] Platelets (Bld) [#/Vol] 218 10*3/uL Normal 150-400 [facility] Comment on above: Order Comment: Speci men Type: BLOOD SPECIMENOrdering Facility: [facility] Address: [address] [place] [address] Performed By: #### 5 7021-8 ####[facility] LABCLIA [id number] [place] [address] RBC (Bld) [#/Vol] 4.86 10*6/uL Normal 4.20-6.00 [facility] Comment on above: Order Comment: Speci men Type: BLOOD SPECIMENOrdering Facility: [facility] Address: [address] [place] [address] Performed By: #### 5 7021-8 ####[facility] LABCLIA [id number] [place] [address] WBC (Bld) [#/Vol] 8.59 10*3/uL Normal 3.70-11.00 [facility] Comment on above: Order Comment: Speci men Type: BLOOD SPECIMENOrdering Facility: [facility] Address: [facility] [place] [address] Performed By: #### 5 7021-8 ####[facility] LABCLIA [id number] [place] [address] Comprehensive metabolic 2000 panelon 02-13-2024 Albumin [Mass/Vol] 3.4 g/dL Low 3.9-4.9 [facility] Comment on above: Order Comment: Speci men Type: BLOOD SPECIMENOrdering Facility: [facility] Address: [facility] [place] [address] Performed By: #### 2 4323-8 ####[facility] LABCLIA [id number] [place] [address] ALP [Catalytic activity/Vol] 115 U/L High 38-113 [facility] Comment on above: Order Comment: Speci men Type: BLOOD SPECIMENOrdering Facility: [facility] Address: [address] [place] [address] Performed By: #### 2 4323-8 ####[facility] LABCLIA [id number] [place] [address] ALT [Catalytic activity/Vol] 11 U/L Normal 10-54 [facility] Comment on above: Order Comment: Speci men Type: BLOOD SPECIMENOrdering Facility: [facility] Address: [address] [place] [address] Performed By: #### 2 4323-8 ####[facility] LABCLIA [id number] [place] [address] Anion gap [Moles/Vol] 9 mmol/L Normal 9-18 [facility] Comment on above: Order Comment: Speci men Type: BLOOD SPECIMENOrdering Facility: [facility] Address: [address] [place] [address] Performed By: #### 2 4323-8 ####[facility] LABCLIA [id number] [place] [address] AST [Catalytic activity/Vol] 19 U/L Normal 14-40 [facility] Comment on above: Order Comment: Speci men Type: BLOOD SPECIMENOrdering Facility: [facility] Address: [address] [place] [address] Performed By: #### 2 4323-8 ####[facility]ENTERBHARATH[facility] LABCLIA [id number] [place] [address] Bilirubin [Mass/Vol] 0.9 mg/dL Normal 0.2-1.3 [facility] Comment on above: Order Comment: Speci men Type: BLOOD SPECIMENOrdering Facility: [facility] Address: [address] [place] [address] Performed By: #### 2 4323-8 ####[facility] LABCLIA [id number] [place] [address] Calcium [Mass/Vol] 9.9 mg/dL Normal 8.5-10.2 [facility] Comment on above: Order Comment: Speci men Type: BLOOD SPECIMENOrdering Facility: [facility] Address: [address] [place] [address] Performed By: #### 2 4323-8 ####[facility] LABCLIA [id number] [place] [address] Chloride [Moles/Vol] 99 mmol/L Normal 97-105 [facility] Comment on above: Order Comment: Speci men Type: BLOOD SPECIMENOrdering Facility: [facility] Address: [address] [place] [address] Performed By: #### 2 4323-8 ####[facility] LABCLIA [id number] [place] [address] CO2 [Moles/Vol] 27 mmol/L Normal 22-30 [facility] Comment on above: Order Comment: Speci men Type: BLOOD SPECIMENOrdering Facility: [facility] Address: [address] [place] [address] Performed By: #### 2 4323-8 ####[facility] LABCLIA [id number] [place] [address] Creatinine [Mass/Vol] 2.23 mg/dL High 0.73-1.22 [facility] Comment on above: Order Comment: Dylan olvera Type: BLOOD SPECIMENOrdering Facility: [facility] Address: [address] [place] [address] Performed By: #### 2 4323-8 ####[facility] LABCLIA [id number] [place] [address] Creatinine and Glomerular filtration rate.predicted panel (S/P/Bld) 29 mL/min/1.73m??? Low >=60 [facility] Comment on above: Order Comment: Dylan olvera Type: BLOOD SPECIMENOrdering Facility: [facility] Address: [address] [place] [address] Result Comment: Etta mated Glomerular Filtration Rate [...] actual GFR. Performed By: #### 2 4323-8 ####[facility] LABCLIA [id number] [place] [address] Glucose [Mass/Vol] 130 mg/dL High 74-99 [facility] Comment on above: Order Comment: Dylan olvera Type: BLOOD SPECIMENOrdering Facility: [facility] Address: [address] [place] [address] Result Comment: The [place] [employer] Association (ADA) provides guidance for cutoff [...] Standards of Medical Care in Diabetes 2016, [place] [employer]. Diabetes Care. 2016.39(Suppl 1). Performed By: #### 2 4323-8 ####[facility] LABCLIA [id number] [place] [address] Potassium [Moles/Vol] 4.0 mmol/L Normal 3.7-5.1 [facility] Comment on above: Order Comment: Speci men Type: BLOOD SPECIMENOrdering Facility: [facility] Address: [address] [place], [place] [address] Performed By: #### 2 4323-8 ####[facility] LABCLIA [id number] [place] [address] Protein [Mass/Vol] 7.3 g/dL Normal 6.3-8.0 [facility] Comment on above: Order Comment: Speci men Type: BLOOD SPECIMENOrdering Facility: [facility] Address: [address] [place] [address] Performed By: #### 2 4323-8 ####[facility] LABCLIA [id number] [place] [address] Sodium [Moles/Vol] 135 mmol/L Low 136-144 [facility] Comment on above: Order Comment: Speci men Type: BLOOD SPECIMENOrdering Facility: [facility] Address: [address] [place], [place] [address] Performed By: #### 2 4323-8 ####[facility] LABCLIA [id number] [place] [address] Urea nitrogen [Mass/Vol] 37 mg/dL High 9-24 [facility] Comment on above: Order Comment: Speci men Type: BLOOD SPECIMENOrdering Facility: [facility] Address: [address] [place] [address] Performed By: #### 2 4323-8 ####[facility] LABCLIA [id number] [place] [address] Iron and Iron binding capaci panel 02-13-2024 Iron [Mass/Vol] 21 ug/dL Low 41-186 [facility] Comment on above: Order Comment: Speci men Type: BLOOD SPECIMENOrdering Facility: [facility] Address: [address] [place] [address] Performed By: #### 3 051-0, 3024-7, 74429-4, 35665-8 ####[facility] LABCLIA [id number] [place] [address] [place] Iron binding capacity [Mass/Vol] 202 ug/dL Low 232-386 [facility] Comment on above: Order Comment: Speci men Type: BLOOD SPECIMENOrdering Facility: [facility] Address: [address] [place] [address] Performed By: #### 3 051-0, 3024-7, 44322-7, 81637-1 ####[facility] LABIA [id number] [place] [id number] [place] Iron/TIBC [Molar ratio] 10.4 % Low 15.0-57.0 [facility] Comment on above: Order Comment: Speci men Type: BLOOD SPECIMENOrdering Facility: [facility] Address: [address] [place], [place] [address] Performed By: #### 3 051-0, 3024-7, 27591-8, 44354-9 ####[facility] LABIA [id number] [address] [address] [place] NT-proBNP [facility] 02-12 Natriuretic peptide.B prohormone N-Terminal [Mass/Vol] 16611 pg/mL High <450 [facility] Comment on above: Order Comment: Speci men Type: BLOOD SPECIMENOrdering Facility: [facility] Address: [facility] [place] [address] Performed By: #### 3 051-0, 3024-7, 88014-6, 32672-0 ####[facility] LABCLIA [id number] [place] [id number] [place] T3Free SerPl-mCncon 20 24 Free T3 [Mass/Vol] 3.2 pg/mL Normal 2.3-4.1 [facility] Comment on above: Order Comment: Speci men Type: BLOOD SPECIMENOrdering Facility: [facility] Address: [address] [place] [address] Performed By: #### 3 051-0, 3024-7, 40976-4, 93132-7 ####[facility] LABCLIA [id number] [place] [address] [place] T4 Free SerPl-mCncon 2 024 Free T4 [Mass/Vol] 1.2 ng/dL Normal 0.9-1.7 [facility] Comment on above: Order Comment: Speci men Type: BLOOD SPECIMENOrdering Facility: [facility] Address: [address] [place] [address] Performed By: #### 3 051-0, 3024-7, 73318-0, 35462-0 ####[facility] LABIA [id number] [place] [id number] [place] TSH SerPl-aCncon 02-13-2024 TSH Qn 0.207 m[IU]/L Low 0.270-4.200 [facility] Comment on above: Order Comment: Speci men Type: BLOOD SPECIMENOrdering Facility: [facility] Address: [address] [place] [address] Performed By: #### 3 016-3 ####[facility] LABCLIA [id number] [place] [id number] [place] CNPNon 02-12-2024 CNPN Normal [facility] CNPNon 02-11-2024 CNPN Normal [facility] Basic metabolic 2000 panelon 02-05-2024 Anion gap [Moles/Vol] 16 mmol/L 9 - 18 mmol/L [facility] Calcium [Mass/Vol] 9.6 mg/dL 8.5 - 10. 2 mg/dL [facility] Chloride [Moles/Vol] 95 mmol/L Low 97 - 105 mmol/L [facility] CO2 [Moles/Vol] 24 mmol/L 22 - 30 mmol/L [facility] Creatinine [Mass/Vol] 2.50 mg/dL High 0.73 - 1.22 mg/dL [facility] GFR/1.73 sq M.predicted among non-blacks MDRD (S/P/Bld) [Vol rate/Area] 25 mL/min/{1.73_m2} Low - PINF [facility] Comment on above: Estimated Glomerular Filtration Rate [...] 103 mg/dL High 74 - 99 mg/dL [facility] Comment on above: The [place] Diabete s Association (ADA) provides guidance for [...] Standards of Medical Care in Diabetes 2016, [place] [employer]. Diabetes Care. 2016.39(Suppl 1). Potassium [Moles/Vol] 3.5 mmol/L Low 3.7 - 5.1 mmol/L [facility] Sodium [Moles/Vol] 135 mmol/L Low 136 - 144 mmol/L [facility] Urea nitrogen [Mass/Vol] 43 mg/dL High 9 - 24 mg/dL [facility] Anion gap [Moles/Vol] 16 mmol/L Normal 9-18 [facility] Comment on above: Order Comment: Speci men Type: BLOOD SPECIMENOrdering Facility: [facility] Address: [address] [place] [address] Performed By: #### 2 4321-2, 36482-4 ####[facility] LABCLIA [id number] [place] [address] [place] Calcium [Mass/Vol] 9.6 mg/dL Normal 8.5-10.2 [facility] Comment on above: Order Comment: Speci men Type: BLOOD SPECIMENOrdering Facility: [facility] Address: [address] [place] [address] Performed By: #### 2 4321-2, 27670-4 ####[facility] LABCLIA [id number] [place] [address] [place] Chloride [Moles/Vol] 95 mmol/L Low 97-105 [facility] Comment on above: Order Comment: Speci men Type: BLOOD SPECIMENOrdering Facility: [facility] Address: [address] [place] [address] Performed By: #### 2 4321-2, 16429-6 ####[facility] LABCLIA [id number] [place] [address] [place] CO2 [Moles/Vol] 24 mmol/L Normal 22-30 [facility] Comment on above: Order Comment: Speci men Type: BLOOD SPECIMENOrdering Facility: [facility] Address: [address] [place] [address] Performed By: #### 2 4321-2, 32470-0 ####[facility] LABCLIA [id number] [place] [id number] [place] Creatinine [Mass/Vol] 2.50 mg/dL High 0.73-1.22 [facility] Comment on above: Order Comment: Speci men Type: BLOOD SPECIMENOrdering Facility: [facility] Address: [address] [place] [address] Performed By: #### 2 4321-2, 04083-2 ####[facility] LABIA [id number] [place] [address] [place] Creatinine and Glomerular filtration rate.predicted panel (S/P/Bld) 25 mL/min/1.73m??? Low >=60 [facility] Comment on above: Order Comment: Dylan olvera Type: BLOOD SPECIMENOrdering Facility: [facility] Address: [address] [place] [address] Result Comment: Etta mated Glomerular Filtration Rate [...] actual GFR. Performed By: #### 2 4321-2, 56164-0 ####[facility] LABIA [id number] [place] [address] [place] Glucose [Mass/Vol] 103 mg/dL High 74-99 [facility] Comment on above: Order Comment: Dylan may Type: BLOOD SPECIMENOrdering Facility: [facility] Address: [address] [place] [address] Result Comment: The [place] Diabetes [employer] (ADA) provides guidance for cutoff [...] Standards of Medical Care in Diabetes 2016, [employer]. Diabetes Care. 2016.39(Suppl 1). Performed By: #### 2 4321-2, 75587-9 ####[facility] LABCLIA [id number] [place] [address] [place] Potassium [Moles/Vol] 3.5 mmol/L Low 3.7-5.1 [facility] Comment on above: Order Comment: Speci men Type: BLOOD SPECIMENOrdering Facility: [facility] Address: [address] [place] [address] Performed By: #### 2 4321-2, 13913-7 ####[facility] LABIA [id number] [place] [address] [place] Sodium [Moles/Vol] 135 mmol/L Low 136-144 [facility] Comment on above: Order Comment: Speci men Type: BLOOD SPECIMENOrdering Facility: [facility] Address: [address] [place] [address] Performed By: #### 2 4321-2, 95031-2 ####[facility] LABIA [id number] [place] [address] [place] Urea nitrogen [Mass/Vol] 43 mg/dL High 9-24 [facility] Comment on above: Order Comment: Speci men Type: BLOOD SPECIMENOrdering Facility: [facility] Address: [address] [place] [address] Performed By: #### 2 4321-2, 83059-0 ####[facility] LABIA [id number] [place] [address] [place] CBC W Auto Differential pane l (Bld)on 02-05-2024 Basophils (Bld) [#/Vol] 0.04 10*3/uL [facility] Basophils/100 WBC (Bld) 0.5 % [facility] Differential cell count method Nom (Bld) Auto [facility] Eosinophils (Bld) [#/Vol] 0.41 10*3/uL [facility] Eosinophils/100 WBC (Bld) 5.5 % [facility] Erythrocyte distribution width (RBC) [Ratio] 16.2 % High 11.5 - 15.0 % [facility] Hematocrit (Bld) [Volume fraction] 40.2 % 39.0 - 51.0 % [facility] Hemoglobin (Bld) [Mass/Vol] 12.4 g/dL Low 13.0 - 17.0 g/dL [facility] Immature granulocytes (Bld) [#/Vol] 0.04 10*3/uL [facility] Immature granulocytes/100 WBC (Bld) 0.5 % [facility] Interpretation and review of laboratory results Abnormal [facility] Lymphocytes (Bld) [#/Vol] 1.20 10*3/uL [facility] Lymphocytes/100 WBC (Bld) 16.0 % [facility] MCH (RBC) [Entitic mass] 27.0 pg 26.0 - 34.0 pg [facility] MCHC (RBC) [Mass/Vol] 30.8 g/dL 30.5 - 36.0 g/dL [facility] MCV (RBC) [Entitic vol] 87.6 fL 80.0 - 100.0 fL [facility] Monocytes (Bld) [#/Vol] 0.82 10*3/uL [facility] Monocytes/100 WBC (Bld) 10.9 % [facility] Neutrophils (Bld) [#/Vol] 5.00 10*3/uL [facility] Neutrophils/100 WBC (Bld) 66.6 % [facility] Nucleated RBC (Bld) [#/Vol] [facility] Nucleated RBC/100 WBC (Bld) [Ratio] 0.0 % /100 WBC [facility] Platelet mean volume (Bld) [Entitic vol] 10.4 fL 9.0 - 12.7 fL [facility] Platelets (Bld) [#/Vol] 224 10*3/uL [facility] RBC (Bld) [#/Vol] 4.59 10*6/uL 4.20 - 6.0 0 m/uL [facility] WBC (Bld) [#/Vol] 7.51 10*3/uL [facility] Basophils (Bld) [#/Vol] 0.04 10*3/uL Normal <0.11 [facility] Comment on above: Order Comment: Speci men Type: BLOOD SPECIMENOrdering Facility: [facility] Address: [address] [place] [address] Performed By: #### 5 7021-8 ####[facility] LABCLIA [id number] [place] [address] [place] Basophils/100 WBC (Bld) 0.5 % Normal [facility] Comment on above: Order Comment: Speci men Type: BLOOD SPECIMENOrdering Facility: [facility] Address: [address] [place] [address] Performed By: #### 5 7021-8 ####[facility] LABCLIA [id number] [place] [address] [place] Differential cell count method Nom (Bld) Auto Normal [facility] Comment on above: Order Comment: Speci men Type: BLOOD SPECIMENOrdering Facility: [facility] Address: [address] [place] [address] Performed By: #### 5 7021-8 ####[facility] LABCLIA [id number] [place] [address] [place] Eosinophils (Bld) [#/Vol] 0.41 10*3/uL Normal <0.46 [facility] Comment on above: Order Comment: Speci men Type: BLOOD SPECIMENOrdering Facility: [facility] Address: [address] [place] [address] Performed By: #### 5 7021-8 ####[facility] LABCLIA [id number] [place] [address] [place] Eosinophils/100 WBC (Bld) 5.5 % Normal [facility] Comment on above: Order Comment: Speci men Type: BLOOD SPECIMENOrdering Facility: [facility] Address: [address] [place] [address] Performed By: #### 5 7021-8 ####[facility] LABCLIA [id number] [place] [address] [place] Erythrocyte distribution width (RBC) [Ratio] 16.2 % High 11.5-15.0 [facility] Comment on above: Order Comment: Speci men Type: BLOOD SPECIMENOrdering Facility: [facility] Address: [address] [place] [address] Performed By: #### 5 7021-8 ####[facility] LABIA [id number] [place] [address] [place] Hematocrit (Bld) [Volume fraction] 40.2 % Normal 39.0-51.0 [facility] Comment on above: Order Comment: Speci men Type: BLOOD SPECIMENOrdering Facility: [facility] Address: [address] [place] [address] Performed By: #### 5 7021-8 ####[facility] LABIA [id number] [place] [address] [place] Hemoglobin (Bld) [Mass/Vol] 12.4 g/dL Low 13.0-17.0 [facility] Comment on above: Order Comment: Speci men Type: BLOOD SPECIMENOrdering Facility: [facility] Address: [address] [place] [address] Performed By: #### 5 7021-8 ####[facility] LABIA [id number] [place] [address] [place] Immature granulocytes (Bld) [#/Vol] 0.04 10*3/uL Normal <0.10 [facility] Comment on above: Order Comment: Speci men Type: BLOOD SPECIMENOrdering Facility: [facility] Address: [address] [place] [address] Performed By: #### 5 7021-8 ####[facility] LABCLIA [id number] [place] [address] [place] Immature granulocytes/100 WBC (Bld) 0.5 % Normal [facility] Comment on above: Order Comment: Speci men Type: BLOOD SPECIMENOrdering Facility: [facility] Address: [address] [place] [address] Performed By: #### 5 7021-8 ####[facility] LABCLIA [id number] [place] [address] [place] Lymphocytes (Bld) [#/Vol] 1.20 10*3/uL Normal 1.00-4.00 [facility] Comment on above: Order Comment: Speci men Type: BLOOD SPECIMENOrdering Facility: [facility] Address: [address] [place] [address] Performed By: #### 5 7021-8 ####[facility] LABCLIA [id number] [place] [address] [place] Lymphocytes/100 WBC (Bld) 16.0 % Normal [facility] Comment on above: Order Comment: Speci men Type: BLOOD SPECIMENOrdering Facility: [facility] Address: [address] [place] [address] Performed By: #### 5 7021-8 ####[facility] LABCLIA [id number] [place] [address] [place] MCH (RBC) [Entitic mass] 27.0 pg Normal 26.0-34.0 [facility] Comment on above: Order Comment: Speci men Type: BLOOD SPECIMENOrdering Facility: [facility] Address: [address] [place] [address] Performed By: #### 5 7021-8 ####[facility] LABCLIA [id number] [place] [address] [place] MCHC (RBC) [Mass/Vol] 30.8 g/dL Normal 30.5-36.0 [facility] Comment on above: Order Comment: Speci men Type: BLOOD SPECIMENOrdering Facility: [facility] Address: [address] [place] [address] Performed By: #### 5 7021-8 ####[facility] LABCLIA [id number] [place] [address] [place] MCV (RBC) [Entitic vol] 87.6 fL Normal 80.0-100.0 [facility] Comment on above: Order Comment: Speci men Type: BLOOD SPECIMENOrdering Facility: [facility] Address: [address] [place] [address] Performed By: #### 5 7021-8 ####[facility] LABCLIA [id number] [place] [address] [place] Monocytes (Bld) [#/Vol] 0.82 10*3/uL Normal <0.87 [facility] Comment on above: Order Comment: Speci men Type: BLOOD SPECIMENOrdering Facility: [facility] Address: [address] [place] [address] Performed By: #### 5 7021-8 ####[facility] LABCLIA [id number] [place] [address] [place] Monocytes/100 WBC (Bld) 10.9 % Normal [facility] Comment on above: Order Comment: Speci men Type: BLOOD SPECIMENOrdering Facility: [facility] Address: [address] [place] [address] Performed By: #### 5 7021-8 ####[facility] LABCLIA [id number] [place] [address] [place] Neutrophils (Bld) [#/Vol] 5.00 10*3/uL Normal 1.45-7.50 [facility] Comment on above: Order Comment: Speci men Type: BLOOD SPECIMENOrdering Facility: [facility] Address: [address] [place] [address] Performed By: #### 5 7021-8 ####[facility] LABCLIA [id number] [place] [address] [place] Neutrophils/100 WBC (Bld) 66.6 % Normal [facility] Comment on above: Order Comment: Speci men Type: BLOOD SPECIMENOrdering Facility: [facility] Address: [address] [place] [address] Performed By: #### 5 7021-8 ####[facility] LABIA [id number] [place] [address] [place] Nucleated RBC (Bld) [#/Vol] 10*3/uL Normal <0.01 [facility] Comment on above: Order Comment: Speci men Type: BLOOD SPECIMENOrdering Facility: [facility] Address: [address] [place] [address] Performed By: #### 5 7021-8 ####[facility] LABIA [id number] [place] [address] [place] Nucleated RBC/100 WBC (Bld) [Ratio] 0.0 /100 WBC Normal [facility] Comment on above: Order Comment: Speci men Type: BLOOD SPECIMENOrdering Facility: [facility] Address: [address] [place] [address] Performed By: #### 5 7021-8 ####[facility] LABIA [id number] [place] [address] [place] Platelet mean volume (Bld) [Entitic vol] 10.4 fL Normal 9.0-12.7 [facility] Comment on above: Order Comment: Speci men Type: BLOOD SPECIMENOrdering Facility: [facility] Address: [address] [place] [address] Performed By: #### 5 7021-8 ####[facility] LABIA [id number] [place] [address] [place] Platelets (Bld) [#/Vol] 224 10*3/uL Normal 150-400 [facility] Comment on above: Order Comment: Speci men Type: BLOOD SPECIMENOrdering Facility: [facility] Address: [address] [place] [address] Performed By: #### 5 7021-8 ####[facility] LABCLIA [id number] [place] [address] [place] RBC (Bld) [#/Vol] 4.59 10*6/uL Normal 4.20-6.00 [facility] Comment on above: Order Comment: Speci men Type: BLOOD SPECIMENOrdering Facility: [facility] Address: [address] [place] [address] Performed By: #### 5 7021-8 ####[facility] LABCLIA [id number] [place] [address] [place] WBC (Bld) [#/Vol] 7.51 10*3/uL Normal 3.70-11.00 [facility] Comment on above: Order Comment: Speci men Type: BLOOD SPECIMENOrdering Facility: [facility] Address: [address] [place] [address] Performed By: #### 5 7021-8 ####[facility] LABIA [id number] [place] [address] [place] CNNURSEon 02-05-2024 CNNURSE Normal [facility] ECG COMPLETEon 02-05-2024 ECG COMPLETE Normal [facility] NT PRO BNPon 02-05-2024 Natriuretic peptide.B prohormone N-Terminal [Mass/Vol] 22525 pg/mL High NINF - 450 pg/mL [facility] NT-proBNP SerPl-mCncon 02-04 Natriuretic peptide.B prohormone N-Terminal [Mass/Vol] 71411 pg/mL High <450 [facility] Comment on above: Order Comment: Speci men Type: BLOOD SPECIMENOrdering Facility: [facility] Address: [address] [place] [address] Performed By: #### 2 4321-2, 91776-0 ####[facility] LABCLIA [id number] [place] [address] [place] No Panel Informationon 02-04 Interpretation and review of laboratory results Abnormal [facility] CNNURSEon 01-30-2024 CNNURSE Normal [facility] CNPNon 01-14-2024 CNPN Normal [facility] CNNURSEon 01-10-2024 CNNURSE Normal [facility] CNOVon 01-10-2024 CNOV Normal [facility] Comprehensive metabolic 2000 panelon 01-10-2024 Albumin [Mass/Vol] 3.7 g/dL Low 3.9 - 4.9 g/dL [facility] ALP [Catalytic activity/Vol] 109 U/L 38 - 113 U/L [facility] ALT [Catalytic activity/Vol] 10 U/L 10 - 54 U/L [facility] Anion gap [Moles/Vol] 14 mmol/L 9 - 18 mmol/L [facility] AST [Catalytic activity/Vol] 20 U/L 14 - 40 U/L [facility] Bilirubin [Mass/Vol] 1.1 mg/dL 0.2 - 1.3 mg/dL [facility] Calcium [Mass/Vol] 9.8 mg/dL 8.5 - 10. 2 mg/dL [facility] Chloride [Moles/Vol] 95 mmol/L Low 97 - 105 mmol/L [facility] CO2 [Moles/Vol] 25 mmol/L 22 - 30 mmol/L [facility] Creatinine [Mass/Vol] 2.50 mg/dL High 0.73 - 1.22 mg/dL [facility] GFR/1.73 sq M.predicted among non-blacks MDRD (S/P/Bld) [Vol rate/Area] 25 mL/min/{1.73_m2} Low - PINF [facility] Comment on above: Estimated Glomerular Filtration Rate [...] 105 mg/dL High 74 - 99 mg/dL [facility] Comment on above: The [place] [employer] (ADA) provides guidance for [...] Standards of Medical Care in Diabetes 2016, [place] [employer]. Diabetes Care. 2016.39(Suppl 1). Potassium [Moles/Vol] 3.9 mmol/L 3.7 - 5.1 mmol/L [facility] Protein [Mass/Vol] 7.2 g/dL 6.3 - 8.0 g/dL [facility] Sodium [Moles/Vol] 134 mmol/L Low 136 - 144 mmol/L [facility] Urea nitrogen [Mass/Vol] 44 mg/dL High 9 - 24 mg/dL [facility] Albumin [Mass/Vol] 3.7 g/dL Low 3.9-4.9 [facility] Comment on above: Order Comment: Speci men Type: BLOOD SPECIMENOrdering Facility: [facility] Address: [address] [place] [address] Performed By: #### 3 3762-6, 98440-7 ####[facility] LABIA [id number] [place] [address] [place] ALP [Catalytic activity/Vol] 109 U/L Normal 38-113 [facility] Comment on above: Order Comment: Speci men Type: BLOOD SPECIMENOrdering Facility: [facility] Address: [address] [place] [address] Performed By: #### 3 3762-6, 38151-4 ####[facility] LABIA [id number] [place] [address] [place] ALT [Catalytic activity/Vol] 10 U/L Normal 10-54 [facility] Comment on above: Order Comment: Speci men Type: BLOOD SPECIMENOrdering Facility: [facility] Address: [address] [place] [address] Performed By: #### 3 3762-6, 00598-2 ####[facility] LABCLIA [id number] [facility] [address] [address] [place] Anion gap [Moles/Vol] 14 mmol/L Normal 9-18 [facility] Comment on above: Order Comment: Speci men Type: BLOOD SPECIMENOrdering Facility: [facility] Address: [address] [place] [address] Performed By: #### 3 3762-6, ####[facility] LABCLIA [id number] [facility] [place] [address] [place] AST [Catalytic activity/Vol] 20 U/L Normal 14-40 [facility] Comment on above: Order Comment: Speci men Type: BLOOD SPECIMENOrdering Facility: [facility] Address: [address] [place] [address] Performed By: #### 3 376-6, ####[facility] LABCLIA [id number] [facility] [place] [place] [address] [place] Bilirubin [Mass/Vol] 1.1 mg/dL Normal 0.2-1.3 [facility] Comment on above: Order Comment: Speci men Type: BLOOD SPECIMENOrdering Facility: [facility] Address: [address] [place] [address] Performed By: #### 3 3762-6, ####[facility] LABCLIA [id number] [facility] [place] [address] [place] Calcium [Mass/Vol] 9.8 mg/dL Normal 8.5-10.2 [facility] Comment on above: Order Comment: Speci men Type: BLOOD SPECIMENOrdering Facility: [facility] Address: [address] [place] [address] Performed By: #### 3 3762-6, 19572-2 ####[facility] LABCLIA [id number] [place] [address] [place] Chloride [Moles/Vol] 95 mmol/L Low 97-105 [facility] Comment on above: Order Comment: Speci men Type: BLOOD SPECIMENOrdering Facility: [facility] Address: [address] [place] [address] Performed By: #### 3 3762-6, 84885-0 ####[facility] LABIA [id number] [place] [address] [place] CO2 [Moles/Vol] 25 mmol/L Normal 22-30 [facility] Comment on above: Order Comment: Speci men Type: BLOOD SPECIMENOrdering Facility: [facility] Address: [address] [place] [address] Performed By: #### 3 3762-6, 59000-0 ####[facility] LABCLIA [id number] [place] [address] [place] Creatinine [Mass/Vol] 2.50 mg/dL High 0.73-1.22 [facility] Comment on above: Order Comment: Speci men Type: BLOOD SPECIMENOrdering Facility: [facility] Address: [address] [place] [address] Performed By: #### 3 3762-6, 64640-5 ####[facility] LABIA [id number] [address] STATES OF [facility] Creatinine and Glomerular filtration rate.predicted panel (S/P/Bld) 25 mL/min/1.73m??? Low >=60 [facility] Comment on above: Order Comment: Speci men Type: BLOOD SPECIMENOrdering Facility: [facility] Address: [address] [place] [address] Result Comment: Etta mated Glomerular Filtration Rate [...] actual GFR. Performed By: #### 3 3762-6, 54410-8 ####[facility] LABCLIA [id number] [place] [address] [place] Glucose [Mass/Vol] 105 mg/dL High 74-99 [facility] Comment on above: Order Comment: Dylan olvera Type: BLOOD SPECIMENOrdering Facility: [facility] Address: [address] [place] [address] Result Comment: The [place] Diabetes [employer] (ADA) provides guidance for cutoff [...] Standards of Medical Care in Diabetes 2016, [place] [employer]. Diabetes Care. 2016.39(Suppl 1). Performed By: #### 3 3762-6, 94317-2 ####[facility] LABIA [id number] [place] [address] [place] Potassium [Moles/Vol] 3.9 mmol/L Normal 3.7-5.1 [facility] Comment on above: Order Comment: Dylan olvera Type: BLOOD SPECIMENOrdering Facility: [facility] Address: [address] [place] [address] Performed By: #### 3 3762-6, 84636-6 ####[facility] LABIA [id number] [place] [address] [place] Protein [Mass/Vol] 7.2 g/dL Normal 6.3-8.0 [facility] Comment on above: Order Comment: Dylan olvera Type: BLOOD SPECIMENOrdering Facility: [facility] Address: [address] [place] [address] Performed By: #### 3 3762-6, ####[facility] LABCLIA [id number] [place] [address] [place] Sodium [Moles/Vol] 134 mmol/L Low 136-144 [facility] Comment on above: Order Comment: Speci men Type: BLOOD SPECIMENOrdering Facility: [facility] Address: [address] [place] [address] Performed By: #### 3 3762-6, ####[facility] LABCLIA [id number] [place] [address] [place] Urea nitrogen [Mass/Vol] 44 mg/dL High 9-24 [facility] Comment on above: Order Comment: Speci men Type: BLOOD SPECIMENOrdering Facility: [facility] Address: [address] [place] [address] Performed By: #### 3 3762-6, ####[facility] LABCLIA [id number] [place] [address] [place] NT PRO BNPon 01-10-2024 Natriuretic peptide.B prohormone N-Terminal [Mass/Vol] 08142 pg/mL High NINF - 450 pg/mL [facility] NT-proBNP SerPl-ncon 01-09 Natriuretic peptide.B prohormone N-Terminal [Mass/Vol] 95014 pg/mL High <450 [facility] Comment on above: Order Comment: Speci men Type: BLOOD SPECIMENOrdering Facility: [facility] Address: [address] [place] [address] Performed By: #### 3 3762-6, ####[facility] LABCLIA [id number] [place] [address] [place] No Panel Informationon 01-09 Interpretation and review of laboratory results Abnormal [facility] CNNURSEon 01-02-2024 CNNURSE Normal [facility] CNPNon 01-02-2024 CNPN Normal [facility] CNNURSEon 01-01-2024 CNNURSE Normal [facility] CNNURSEon 12-30-2023 CNNURSE Normal [facility] CNOVon 12-26-2023 CNOV Normal [facility] Follow-Upon 12-25-2023 Follow-Up Normal [facility] ICD REMOTE CHECKon AV Delay Adaptive Paced Minimum (ms) 200 ms [facility] AV Delay Adaptive Sensed Minimum (ms) 170 ms [facility] Bj RA Pacing Amplitude (volts) 2.0 V [facility] Bj RA Pacing Polarity BI [facility] Bj RA Pacing Pulse Width (ms) 0.5 ms [facility] Bj RA Sensing Amplitude (mvolts) 0.25 mV [facility] Bj RA Sensing Polarity BI [facility] Bj RV Pacing Amplitude (volts) 2.0 V [facility] Bj RV Pacing Polarity BI [facility] Bj RV Pacing Pulse Width (ms) 0.5 ms [facility] Bj RV Sensing Amplitude (mvolts) 0.3 mV [facility] Bj RV Sensing Polarity BI [facility] Detection Configuration (Vent) 2 - Zone [facility] FastVT_Detection Interval 250 ms [facility] FastVT_Therapy Configuration 1 ATP(s) + 8 Shock(s) [facility] ICD FastVT DetectionStatus ENABLED [facility] ICD-AMS EPISODES 170 {beats}/min [facility] ICD-ATP Episodes (Vent) 1 [facility] ICD-ATRIALFIBRILLAT ION 9 [facility] ICD-ATRIALTACHYCARD IA 9 [facility] ICD-ATRIALTACHYCARD IA 2 [facility] ICD-ATRIALTACHYCARD IA 1 [facility] ICD-Device Mfg BSX [facility] ICD-Fast Ventricular Tachycardia 2 [facility] ICD-Fast Ventricular Tachycardia 1 [facility] ICD-Fast Ventricular Tachycardia 0 [facility] ICD-LEADIMPEDANCEAT RIAL 767 ohm [facility] ICD-Percent Pacing (Atrial) 0 % [facility] ICD-Percent Pacing (Vent) 0 % [facility] ICD-Shocks Aborted (Vent) 0 [facility] [id number] D 0 [facility] ICD-SHOCKSABORTED 0 [facility] ICD-SHOCKSDELIVERED VENTRICULAR 0 [facility] ICD-Ventricular Fibrillation 0 [facility] Lead Impedance (RV) 437 ohm [facility] Lead Impedance High Voltage 51 ohm [facility] Lead1 Mfg BSX [facility] Lead2 Mfg BSX [facility] Location RV [facility] Location RA [facility] Lower Rate (bpm) 50 {beats}/min [facility] Max Sensor Rate (bpm) 130 {beats}/min [facility] MDT_PROG_TACHY_ZONE _DETECTIONS_STATUS ENABLED [facility] Model D142 INOGEN [facility] Model 0675 Amasa 4-Front [facility] Model 7741 Ingevity MRI [facility] Pacing Mode DDDR [facility] Serial Number [id number] [facility] Serial Number [id number] [facility] Serial Number [id number] [facility] Test Charge Energy 23 J [facility] Test Charge Time 10.3 s [facility] Therapy Status (Vent) Enabled [facility] Thresh RA Capture Amplitude (volts) 0.9 V [facility] Thresh RA Capture Duration (ms) 0.5 ms [facility] Thresh RV Capture Amplitude (VOLTS) 0.4 V [facility] Thresh RV Capture Duration (MS) 0.5 ms [facility] Tracking Rate (bpm) 130 {beats}/min [facility] VF Zone Detection Interval 250 ms [facility] VF Zone Therapy Configuration 1 ATP(s) + 8 Shock(s) [facility] No Panel Informationon 12-22 BLANK _ [facility] ICD-ATRIALTACHYCARD IA 0 [facility] Implant Date 03/24/2019 [facility] CNPNon 12-17-2023 CNPN Normal [facility] NT PRO BNPon 12-13-2023 Natriuretic peptide.B prohormone N-Terminal [Mass/Vol] 45687 pg/mL High <450 pg/mL [facility] CNOVon 12-12-2023 CNOV Normal [facility] Comprehensive metabolic 2000 panelon 12-12-2023 Albumin [Mass/Vol] 4.0 g/dL Normal 3.9-4.9 [facility] Comment on above: Order Comment: Speci men Type: BLOOD SPECIMENOrdering Facility: [facility] Address: [address] [place], [place] [id number] Performed By: #### 3 4821-6, ####[facility] LABCLIA [id number] [place] [address] [place] ALP [Catalytic activity/Vol] 118 U/L High 38-113 [facility] Comment on above: Order Comment: Speci men Type: BLOOD SPECIMENOrdering Facility: [facility] Address: [address] [place] [address] Performed By: #### 3 376-6, ####[facility] LABCLIA [id number] [place] [address] [place] ALT [Catalytic activity/Vol] 14 U/L Normal 10-54 [facility] Comment on above: Order Comment: Speci men Type: BLOOD SPECIMENOrdering Facility: [facility] Address: [address] [place] [address] Performed By: #### 3 376-6, ####[facility] LABIA [id number] [place] [address] [place] Anion gap [Moles/Vol] 18 mmol/L Normal 9-18 [facility] Comment on above: Order Comment: Speci men Type: BLOOD SPECIMENOrdering Facility: [facility] Address: [address] [place] [address] Performed By: #### 3 3762-6, ####[facility] LABCLIA [id number] [place] [address] [place] AST [Catalytic activity/Vol] 26 U/L Normal 14-40 [facility] Comment on above: Order Comment: Speci men Type: BLOOD SPECIMENOrdering Facility: [facility] Address: [address] [place] [address] Performed By: #### 3 3762-6, ####[facility] LABCLIA [id number] [place] [address] [place] Bilirubin [Mass/Vol] 0.7 mg/dL Normal 0.2-1.3 [facility] Comment on above: Order Comment: Speci men Type: BLOOD SPECIMENOrdering Facility: [facility] Address: [address] [place] [address] Performed By: #### 3 3762-6, ####[facility] LABCLIA [id number] [place] [address] [place] Calcium [Mass/Vol] 10.1 mg/dL Normal 8.5-10.2 [facility] Comment on above: Order Comment: Speci men Type: BLOOD SPECIMENOrdering Facility: [facility] Address: [address] [place] [address] Performed By: #### 3 3762-6, ####[facility] LABCLIA [id number] [place] [address] [place] Chloride [Moles/Vol] 97 mmol/L Normal 97-105 [facility] Comment on above: Order Comment: Speci men Type: BLOOD SPECIMENOrdering Facility: [facility] Address: [address] [place] [address] Performed By: #### 3 3762-6, ####[facility] LABCLIA [id number] [place] [address] [place] CO2 [Moles/Vol] 25 mmol/L Normal 22-30 [facility] Comment on above: Order Comment: Speci men Type: BLOOD SPECIMENOrdering Facility: [facility] Address: [address] [place] [address] Performed By: #### 3 3762-6, ####[facility] LABCLIA [id number] [place] [address] [place] Creatinine [Mass/Vol] 2.32 mg/dL High 0.73-1.22 [facility] Comment on above: Order Comment: Speci men Type: BLOOD SPECIMENOrdering Facility: [facility] Address: [address] [place] [address] Performed By: #### 3 3762-6, 76019-7 ####[facility] LABIA [id number] [place] [address] [place] Creatinine and Glomerular filtration rate.predicted panel (S/P/Bld) 28 mL/min/1.73m??? Low >=60 [facility] Comment on above: Order Comment: Dylan olvera Type: BLOOD SPECIMENOrdering Facility: [facility] Address: [address] [place] [address] Result Comment: Etta mated Glomerular Filtration Rate [...] actual GFR. Performed By: #### 3 3762-6, 23691-5 ####[facility] LABCLIA [id number] [place] [address] [place] Glucose [Mass/Vol] 93 mg/dL Normal 74-99 [facility] Comment on above: Order Comment: Dylan olvera Type: BLOOD SPECIMENOrdering Facility: [facility] Address: [address] [place] [address] Result Comment: The [place] [employer] (ADA) provides guidance for cutoff [...] Standards of Medical Care in Diabetes 2016, [place] [employer]. Diabetes Care. 2016.39(Suppl 1). Performed By: #### 3 3762-6, ####[facility] LABCLIA [id number] [place] [address] [place] Potassium [Moles/Vol] 4.1 mmol/L Normal 3.7-5.1 [facility] Comment on above: Order Comment: Speci men Type: BLOOD SPECIMENOrdering Facility: [facility] Address: [address] [place] [address] Performed By: #### 3 3762-6, ####[facility] LABCLIA [id number] [place] [address] [place] Protein [Mass/Vol] 7.4 g/dL Normal 6.3-8.0 [facility] Comment on above: Order Comment: Speci men Type: BLOOD SPECIMENOrdering Facility: [facility] Address: [address] [place] [address] Performed By: #### 3 376-6, ####[facility] LABCLIA [id number] [place] [address] [place] Sodium [Moles/Vol] 140 mmol/L Normal 136-144 [facility] Comment on above: Order Comment: Speci men Type: BLOOD SPECIMENOrdering Facility: [facility] Address: [address] [place] [address] Performed By: #### 3 3762-6, ####[facility] LABCLIA [id number] [place] [address] [place] Urea nitrogen [Mass/Vol] 40 mg/dL High 9-24 [facility] Comment on above: Order Comment: Speci men Type: BLOOD SPECIMENOrdering Facility: [facility] Address: [address] [place] [address] Performed By: #### 3 3762-6, ####[facility] LABCLIA [id number] [address] [address] [place] ECG COMPLETEon 12-12-2023 ECG COMPLETE Normal [facility] NT-proBNP SerPl-mCncon 12-11 Natriuretic peptide.B prohormone N-Terminal [Mass/Vol] 75586 pg/mL High <450 [facility] Comment on above: Order Comment: Speci men Type: BLOOD SPECIMENOrdering Facility: [facility] Address: [address] [place] [address] Performed By: #### 3 3762-6, 74120-9 ####[facility] LABCLIA [id number] [place] [id number] [facility] ICD REMOTE CHECKon 4 AV Delay Adaptive Paced Minimum (ms) 200 ms [facility] AV Delay Adaptive Sensed Minimum (ms) 170 ms [facility] Bj RA Pacing Amplitude (volts) 2.0 V [facility] Bj RA Pacing Polarity BI [facility] Bj RA Pacing Pulse Width (ms) 0.5 ms [facility] Bj RA Sensing Amplitude (mvolts) 0.25 mV [facility] Bj RA Sensing Polarity BI [facility] Bj RV Pacing Amplitude (volts) 2.0 V [facility] Bj RV Pacing Polarity BI [facility] Bj RV Pacing Pulse Width (ms) 0.5 ms [facility] Bj RV Sensing Amplitude (mvolts) 0.3 mV [facility] Bj RV Sensing Polarity BI [facility] Detection Configuration (Vent) 2 - Zone [facility] FastVT_Detection Interval 250 ms [facility] FastVT_Therapy Configuration 1 ATP(s) + 8 Shock(s) [facility] ICD FastVT DetectionStatus ENABLED [facility] ICD-AMS EPISODES 170 {beats}/min [facility] ICD-ATP Episodes (Vent) 0 [facility] ICD-ATRIALFIBRILLAT ION 7 [facility] ICD-ATRIALTACHYCARD IA 7 [facility] ICD-ATRIALTACHYCARD IA 2 [facility] ICD-Device Mfg BSX [facility] ICD-Fast Ventricular Tachycardia 2 [facility] ICD-LEADIMPEDANCEAT RIAL 827 ohm [facility] ICD-Percent Pacing (Atrial) 0 % [facility] ICD-Percent Pacing (Vent) 0 % [facility] ICD-Shocks Aborted (Vent) 0 [facility] [id number] D 0 [facility] ICD-SHOCKSABORTED 0 [facility] ICD-SHOCKSDELIVERED VENTRICULAR 0 [facility] ICD-Ventricular Fibrillation 0 [facility] Lead Impedance (RV) 468 ohm [facility] Lead Impedance High Voltage 60 ohm [facility] Lead1 Mfg BSX [facility] Lead2 Mfg BSX [facility] Location RV [facility] Location RA [facility] Lower Rate (bpm) 50 {beats}/min [facility] Max Sensor Rate (bpm) 130 {beats}/min [facility] MDT_PROG_TACHY_ZONE _DETECTIONS_STATUS ENABLED [facility] Model D142 INOGEN [facility] Model 0675 Amasa 4-Front [facility] Model 7741 Ingevity MRI [facility] Pacing Mode DDDR [facility] Serial Number [id number] [facility] Serial Number [id number] [facility] Serial Number [id number] [facility] Test Charge Energy 23 J [facility] Test Charge Time 10.3 s [facility] Therapy Status (Vent) Enabled [facility] Thresh RA Capture Amplitude (volts) 0.9 V [facility] Thresh RA Capture Duration (ms) 0.5 ms [facility] Thresh RV Capture Amplitude (VOLTS) 0.4 V [facility] Thresh RV Capture Duration (MS) 0.5 ms [facility] Tracking Rate (bpm) 130 {beats}/min [facility] VF Zone Detection Interval 250 ms [facility] VF Zone Therapy Configuration 1 ATP(s) + 8 Shock(s) [facility] No Panel Informationon 12-03 BLANK _ [facility] ICD-ATRIALTACHYCARD IA 0 [facility] ICD-Fast Ventricular Tachycardia 0 [facility] Implant Date 03/24/2019 [facility] 36on 11-26-2023 36 DC to home on 024 Spoke to pt on 11/26/23 Med rec completed with pt Pt aware of follow up appt in [place] on 12/02/23, pt has transportation Normal [facility] CNPNon 11-26-2023 CNPN Normal [facility] BASIC METABOLIC PANELon 11-14 Anion gap [Moles/Vol] 15 mmol/L Normal -20 [facility] Comment on above: Performed By: #### L [id number] ####[facility] (BEAKER)[address] [place] [address] Calcium [Mass/Vol] 9.7 mg/dL Normal 8.6-10.3 [facility] Comment on above: Performed By: #### L [id number] ####[facility] (BEAKER)[address] [place] [address] Chloride [Moles/Vol] 98 mmol/L Normal 98-107 [facility] Comment on above: Performed By: #### L [id number] ####[facility] (BEAKER)[address] [place] [address] CO2 [Moles/Vol] 26 mmol/L Normal 21-31 [facility] Comment on above: Performed By: #### L [id number] ####[facility] [place] [address] Creatinine [Mass/Vol] 2.09 mg/dL High 0.70-1.30 [facility] Comment on above: Performed By: #### L [id number] ####[facility] [place] [address] GLOMERULAR FILTRATION RATE ML/MIN/1.73 SQ M.PREDICTED 31.2 mL/min/1.73m*2 Low >60.0 [facility] Comment on above: Result Comment: [facility]???s estimated glomerular filtration rate (eGFR) [...] of individuals. Performed By: #### L [id number] ####[facility] (BEAKER)[address] [place] [address] Glucose [Mass/Vol] 86 mg/dL Normal 70-100 [facility] Comment on above: Performed By: #### L [id number] ####[facility] ([facility])[address] [place] [address] Potassium [Moles/Vol] 3.7 mmol/L Normal 3.5-5.1 [facility] Comment on above: Performed By: #### L [id number] ####[facility] ([facility])[address] [place] [address] Sodium [Moles/Vol] 135 mmol/L Low 136-145 [facility] Comment on above: Performed By: #### L [id number] ####[facility] ([facility])[address] [place] [address] Urea nitrogen [Mass/Vol] 53 mg/dL High 7-25 [facility] Comment on above: Performed By: #### L [id number] ####[facility] ([facility])[address] [place] [address] UREA NITROGEN/CREATININE (MASS RATIO) IN SER/PLAS 25.4 Normal [facility] Comment on above: Performed By: #### L [id number] ####[facility] ([facility])[address] [place] [address] CBC WITH AUTO DIFFERENTIALon 11-25-2023 Basophils (Bld) [#/Vol] 0.05 10*3/uL Normal 0.00-0.20 [facility] Comment on above: Performed By: #### L [id number] ####[facility] ([facility])[address] [place] [address] Basophils/100 WBC (Bld) 0.6 % Normal 0.0-1.0 [facility] Comment on above: Performed By: #### L [id number] ####[facility] ([facility])[address] [place] [address] Eosinophils (Bld) [#/Vol] 0.24 10*3/uL Normal 0.00-0.50 [facility] Comment on above: Performed By: #### L [id number] ####[facility] (BEAKER)[address] [place] [address] Eosinophils/100 WBC (Bld) 2.8 % Normal 0.0-6.0 [facility] Comment on above: Performed By: #### L [id number] ####[facility] (BEAKER)[address] [place] [address] Erythrocyte distribution width (RBC) [Ratio] 14.5 % Normal 11.5-15.0 [facility] Comment on above: Performed By: #### L [id number] ####[facility] (BEAKER)[address] [place] [address] ERYTHROCYTE MEAN CORPUSCULAR HEMOGLOBIN CONCENTRATION (G/DL) BY AUTOMATED 32.1 g/dL Normal 32.0-35.0 [facility] Comment on above: Performed By: #### L [id number] ####[facility] [place] [address] Hematocrit (Bld) [Volume fraction] 46.8 % Normal 39.0-55.0 [facility] Comment on above: Performed By: #### L [id number] ####[facility] (BEAKER)[address] [place] [address] Hemoglobin (Bld) [Mass/Vol] 15.0 g/dL Normal 13.0-17.0 [facility] Comment on above: Performed By: #### L [id number] ####[facility] (BEAKER)[address] [place] [address] Immature granulocytes (Bld) [#/Vol] 0.04 10*3/uL Normal 0.00-0.20 [facility] Comment on above: Performed By: #### L [id number] ####[facility] (BEAKER)[address] [place] [address] Immature granulocytes/100 WBC (Bld) 0.5 % Normal 0.0-1.0 [facility] Comment on above: Performed By: #### L [id number] ####[facility] (BEAKER)[address] [place] [address] Lymphocytes (Bld) [#/Vol] 1.49 10*3/uL Normal 1.20-4.00 [facility] Comment on above: Performed By: #### L [id number] ####[facility] (BEAKER)[address] [place] [address] Lymphocytes/100 WBC (Bld) 17.2 % Low 20.0-45.0 [facility] Comment on above: Performed By: #### L [id number] ####[facility] (BEAKER)[address] [place] [address] MCH (RBC) [Entitic mass] 28.5 pg Normal 27.0-33.0 [facility] Comment on above: Performed By: #### L [id number] ####[facility] (BEAKER)[address] [place] [address] MCV (RBC) [Entitic vol] 88.8 fL Normal 82.0-98.0 [facility] Comment on above: Performed By: #### L [id number] ####[facility] (BEAKER)[address] [place] [address] Monocytes (Bld) [#/Vol] 0.81 10*3/uL Normal 0.10-1.00 [facility] Comment on above: Performed By: #### L [id number] ####[facility] (BEAKER)[address] [place] [address] Monocytes/100 WBC (Bld) 9.4 % Normal 5.0-12.0 [facility] Comment on above: Performed By: #### L [id number] ####[facility] (BEAKER)[address] [place] [address] Neutrophils (Bld) [#/Vol] 6.03 10*3/uL Normal 1.60-7.60 [facility] Comment on above: Performed By: #### L [id number] ####[facility] (BEAKER)[address] [place] [address] Neutrophils/100 WBC (Bld) 69.5 % Normal 40.0-72.0 [facility] Comment on above: Performed By: #### L [id number] ####[facility] ([facility])[address] [place] [address] NRBC (PER 100 WBCS) BY AUTOMATED COUNT 0.0 % Normal 0 [facility] Comment on above: Performed By: #### L [id number] ####[facility] ([facility])[address] [place] [address] PLATELETS (10*3/UL) IN BLOOD AUTOMATED COUNT 204 10*3/uL Normal 150-400 [facility] Comment on above: Performed By: #### L [id number] ####[facility] ([facility])[address] [place] [address] RBC (Bld) [#/Vol] 5.27 10*6/uL Normal 4.20-5.70 [facility] Comment on above: Performed By: #### L [id number] ####[facility] ([facility])[address] [place] [address] WBC (Bld) [#/Vol] 8.66 10*3/uL Normal 4.00-10.60 [facility] Comment on above: Performed By: #### L [id number] ####[facility] ([facility])[address] [place] [address] DSon 11-25-2023 DS Normal [facility] 30on 11-24-2023 30 Normal [facility] CBC WITH AUTO DIFFERENTIALon 11-24-2023 Basophils (Bld) [#/Vol] 0.05 10*3/uL Normal 0.00-0.20 [facility] Comment on above: Performed By: #### L [id number] ####[facility] [place] [address] Basophils/100 WBC (Bld) 0.6 % Normal 0.0-1.0 [facility] Comment on above: Performed By: #### L [id number] ####[facility] (BEAKER)[address] [place] [address] Eosinophils (Bld) [#/Vol] 0.22 10*3/uL Normal 0.00-0.50 [facility] Comment on above: Performed By: #### L [id number] ####[facility] (BEAKER)[address] [place] [address] Eosinophils/100 WBC (Bld) 2.5 % Normal 0.0-6.0 [facility] Comment on above: Performed By: #### L [id number] ####[facility] (BEAKER)[address] [place] [address] Erythrocyte distribution width (RBC) [Ratio] 14.6 % Normal 11.5-15.0 [facility] Comment on above: Performed By: #### L [id number] ####[facility] ([facility])[address] [place] [address] ERYTHROCYTE MEAN CORPUSCULAR HEMOGLOBIN CONCENTRATION (G/DL) BY AUTOMATED 32.6 g/dL Normal 32.0-35.0 [facility] Comment on above: Performed By: #### L [id number] ####[facility] [place] [address] Hematocrit (Bld) [Volume fraction] 44.8 % Normal 39.0-55.0 [facility] Comment on above: Performed By: #### L [id number] ####[facility] (BEAKER)[address] [place] [address] Hemoglobin (Bld) [Mass/Vol] 14.6 g/dL Normal 13.0-17.0 [facility] Comment on above: Performed By: #### L [id number] ####[facility] (BEAKER)[address] [place] [address] Immature granulocytes (Bld) [#/Vol] 0.04 10*3/uL Normal 0.00-0.20 [facility] Comment on above: Performed By: #### L [id number] ####[facility] (BEAKER)[address] [place] [address] Immature granulocytes/100 WBC (Bld) 0.5 % Normal 0.0-1.0 [facility] Comment on above: Performed By: #### L [id number] ####[facility] (BEAKER)[address] [place] [address] Lymphocytes (Bld) [#/Vol] 1.07 10*3/uL Low 1.20-4.00 [facility] Comment on above: Performed By: #### L [id number] ####[facility] (BEAKER)[address] [place] [address] Lymphocytes/100 WBC (Bld) 12.3 % Low 20.0-45.0 [facility] Comment on above: Performed By: #### L [id number] ####[facility] (BEAKER)[address] [place] [address] MCH (RBC) [Entitic mass] 28.7 pg Normal 27.0-33.0 [facility] Comment on above: Performed By: #### L [id number] ####[facility] (BEAKER)[address] [place] [address] MCV (RBC) [Entitic vol] 88.2 fL Normal 82.0-98.0 [facility] Comment on above: Performed By: #### L [id number] ####[facility] (BEAKER)[address] [place] [address] Monocytes (Bld) [#/Vol] 0.89 10*3/uL Normal 0.10-1.00 [facility] Comment on above: Performed By: #### L [id number] ####[facility] (BEAKER)[address] [place] [address] Monocytes/100 WBC (Bld) 10.2 % Normal 5.0-12.0 [facility] Comment on above: Performed By: #### L [id number] ####[facility] (BEAKER)[address] [place] [address] Neutrophils (Bld) [#/Vol] 6.45 10*3/uL Normal 1.60-7.60 [facility] Comment on above: Performed By: #### L [id number] ####[facility] ([facility])[address] [place] [address] Neutrophils/100 WBC (Bld) 73.9 % High 40.0-72.0 [facility] Comment on above: Performed By: #### L [id number] ####[facility] ([facility])[address] [address] NRBC (PER 100 WBCS) BY AUTOMATED COUNT 0.0 % Normal 0 [facility] Comment on above: Performed By: #### L [id number] ####[facility] ([facility])[address] [place] [address] PLATELETS (10*3/UL) IN BLOOD AUTOMATED COUNT 209 10*3/uL Normal 150-400 [facility] Comment on above: Performed By: #### L [id number] ####[facility] ([facility])[address] [place] [address] RBC (Bld) [#/Vol] 5.08 10*6/uL Normal 4.20-5.70 [facility] Comment on above: Performed By: #### L [id number] ####[facility] ([facility])[address] [place], [place] [address] WBC (Bld) [#/Vol] 8.72 10*3/uL Normal 4.00-10.60 [facility] Comment on above: Performed By: #### L [id number] ####[facility] ([facility] [place] [address] COMPREHENSIVE METABOLIC PANE Aldo 11-24-2023 Albumin [Mass/Vol] 3.8 g/dL Normal 3.5-5.7 [facility] Comment on above: Performed By: #### L [id number] ####[facility] ([facility] [place] [address] ALP [Catalytic activity/Vol] 92 U/L Normal 34-104 [facility] Comment on above: Performed By: #### L [id number] ####[facility] ([facility])[address] [place] [address] ALT [Catalytic activity/Vol] 12 U/L Normal 7-52 [facility] Comment on above: Performed By: #### L [id number] ####[facility] ([facility] [place] [address] Anion gap [Moles/Vol] 14 mmol/L Normal 7-20 [facility] Comment on above: Performed By: #### L [id number] ####[facility] ([facility])[address] [place] [address] AST [Catalytic activity/Vol] 22 U/L Normal 13-39 [facility] Comment on above: Performed By: #### L [id number] ####[facility] ([facility])[address] [place] [address] Bilirubin [Mass/Vol] 1.0 mg/dL Normal 0.3-1.0 [facility] Comment on above: Performed By: #### L [id number] ####[facility] ([facility])[address] [place] [address] Calcium [Mass/Vol] 9.8 mg/dL Normal 8.6-10.3 [facility] Comment on above: Performed By: #### L [id number] ####[facility] ([facility])[address] [place] [address] Chloride [Moles/Vol] 100 mmol/L Normal 98-107 [facility] Comment on above: Performed By: #### L [id number] ####[facility] ([facility])[address] [place] [address] CO2 [Moles/Vol] 24 mmol/L Normal 21-31 [facility] Comment on above: Performed By: #### L [id number] ####[facility] ([facility])[address] [place] [address] Creatinine [Mass/Vol] 2.11 mg/dL High 0.70-1.30 [facility] Comment on above: Performed By: #### L [id number] ####[facility] ([facility])[address] [place] [address] GLOMERULAR FILTRATION RATE ML/MIN/1.73 SQ M.PREDICTED 30.9 mL/min/1.73m*2 Low >60.0 [facility] Comment on above: Result Comment: [facility]???s estimated glomerular filtration rate (eGFR) [...] of individuals. Performed By: #### L [id number] ####[facility] ([facility])[address] [place] [address] Glucose [Mass/Vol] 116 mg/dL High 70-100 [facility] Comment on above: Performed By: #### L [id number] ####[facility] ([facility])[address] [place] [address] Potassium [Moles/Vol] 3.4 mmol/L Low 3.5-5.1 [facility] Comment on above: Performed By: #### L [id number] ####[facility] ([facility])[address] [place] [address] Protein [Mass/Vol] 7.3 g/dL Normal 6.0-8.3 [facility] Comment on above: Performed By: #### L [id number] ####[facility] ([facility])[address] [place] [address] Sodium [Moles/Vol] 135 mmol/L Low 136-145 [facility] Comment on above: Performed By: #### L [id number] ####[facility] ([facility])[address] [place] [address] Urea nitrogen [Mass/Vol] 55 mg/dL High 7-25 [facility] Comment on above: Performed By: #### L [id number] ####[facility] ([facility])[address] [place] [address] UREA NITROGEN/CREATININE (MASS RATIO) IN SER/PLAS 26.1 Normal [facility] Comment on above: Performed By: #### L [id number] ####[facility] ([facility])[address] [place] [address] MAGNESIUMon 11-24-2023 Magnesium [Mass/Vol] 2.4 mg/dL Normal 1.9-2.7 [facility] Comment on above: Performed By: #### L [id number] ####[facility] ([facility])[address] [place] [address] 30on 11-23-2023 30 Normal [facility] 30 Normal [facility] BASIC METABOLIC PANELon 03-0 Anion gap [Moles/Vol] 15 mmol/L Normal 7-20 [facility] Comment on above: Performed By: #### L [id number] ####[facility] ([facility])[address] [place] [address] Calcium [Mass/Vol] 10.1 mg/dL Normal 8.6-10.3 [facility] Comment on above: Performed By: #### L [id number] ####[facility] ([facility])[address] [place] [address] Chloride [Moles/Vol] 99 mmol/L Normal 98-107 [facility] Comment on above: Performed By: #### L [id number] ####[facility] ([facility])[address] [place] [address] CO2 [Moles/Vol] 25 mmol/L Normal 21-31 [facility] Comment on above: Performed By: #### L [id number] ####[facility] ([facility])[address] [place] [address] Creatinine [Mass/Vol] 2.02 mg/dL High 0.70-1.30 [facility] Comment on above: Performed By: #### L [id number] ####[facility] ([facility])[address] [place] [address] GLOMERULAR FILTRATION RATE ML/MIN/1.73 SQ M.PREDICTED 32.5 mL/min/1.73m*2 Low >60.0 [facility] Comment on above: Result Comment: [facility]???s estimated glomerular filtration rate (eGFR) [...] of individuals. Performed By: #### L [id number] ####[facility] ([facility])[address] [place] [address] Glucose [Mass/Vol] 103 mg/dL High 70-100 [facility] Comment on above: Performed By: #### L [id number] ####[facility] ([facility])[address] [place] [address] Potassium [Moles/Vol] 3.5 mmol/L Normal 3.5-5.1 [facility] Comment on above: Performed By: #### L [id number] ####[facility] ([facility])[address] [place] [address] Sodium [Moles/Vol] 135 mmol/L Low 136-145 [facility] Comment on above: Performed By: #### L [id number] ####[facility] ([facility])[address] [place] [address] Urea nitrogen [Mass/Vol] 50 mg/dL High 7-25 [facility] Comment on above: Performed By: #### L [id number] ####[facility] ([facility])[address] [place] [address] UREA NITROGEN/CREATININE (MASS RATIO) IN SER/PLAS 24.8 Normal [facility] Comment on above: Performed By: #### L [id number] ####[facility] ([facility])[address] [place] [address] CBC WITH AUTO DIFFERENTIALon 11-23-2023 Basophils (Bld) [#/Vol] 0.04 10*3/uL Normal 0.00-0.20 [facility] Comment on above: Performed By: #### L [id number] ####[facility] ([facility])[address] [place] [address] Basophils/100 WBC (Bld) 0.4 % Normal 0.0-1.0 [facility] Comment on above: Performed By: #### L [id number] ####[facility] ([facility])[address] [place] [address] Eosinophils (Bld) [#/Vol] 0.13 10*3/uL Normal 0.00-0.50 [facility] Comment on above: Performed By: #### L [id number] ####[facility] ([facility])[address] [place] [address] Eosinophils/100 WBC (Bld) 1.4 % Normal 0.0-6.0 [facility] Comment on above: Performed By: #### L [id number] ####[facility] ([facility])[address] [place] [address] Erythrocyte distribution width (RBC) [Ratio] 14.9 % Normal 11.5-15.0 [facility] Comment on above: Performed By: #### L [id number] ####[facility] ([facility])[address] [place] [address] ERYTHROCYTE MEAN CORPUSCULAR HEMOGLOBIN CONCENTRATION (G/DL) BY AUTOMATED 31.8 g/dL Low 32.0-35.0 [facility] Comment on above: Performed By: #### L [id number] ####[facility] ([facility] [place] [address] Hematocrit (Bld) [Volume fraction] 44.6 % Normal 39.0-55.0 [facility] Comment on above: Performed By: #### L [id number] ####[facility] ([facility])[address] [place] [address] Hemoglobin (Bld) [Mass/Vol] 14.2 g/dL Normal 13.0-17.0 [facility] Comment on above: Performed By: #### L [id number] ####[facility] ([facility])[address] [place] [address] Immature granulocytes (Bld) [#/Vol] 0.04 10*3/uL Normal 0.00-0.20 [facility] Comment on above: Performed By: #### L [id number] ####[facility] ([facility])[address] [place] [address] Immature granulocytes/100 WBC (Bld) 0.4 % Normal 0.0-1.0 [facility] Comment on above: Performed By: #### L [id number] ####[facility] ([facility])[address] [place] [address] Lymphocytes (Bld) [#/Vol] 1.04 10*3/uL Low 1.20-4.00 [facility] Comment on above: Performed By: #### L [id number] ####[facility] ([facility])[address] [place] [address] Lymphocytes/100 WBC (Bld) 11.3 % Low 20.0-45.0 [facility] Comment on above: Performed By: #### L [id number] ####[facility] ([facility])[address] [place] [address] MCH (RBC) [Entitic mass] 28.5 pg Normal 27.0-33.0 [facility] Comment on above: Performed By: #### L [id number] ####[facility] ([facility])[address] [place] [address] MCV (RBC) [Entitic vol] 89.6 fL Normal 82.0-98.0 [facility] Comment on above: Performed By: #### L [id number] ####[facility] [place] [address] Monocytes (Bld) [#/Vol] 0.83 10*3/uL Normal 0.10-1.00 [facility] Comment on above: Performed By: #### L [id number] ####[facility] ([facility])[address] [place] [address] Monocytes/100 WBC (Bld) 9.0 % Normal 5.0-12.0 [facility] Comment on above: Performed By: #### L [id number] ####[facility] ([facility])[address] [place] [address] Neutrophils (Bld) [#/Vol] 7.12 10*3/uL Normal 1.60-7.60 [facility] Comment on above: Performed By: #### L [id number] ####[facility] ([facility])[address] [place] [address] Neutrophils/100 WBC (Bld) 77.5 % High 40.0-72.0 [facility] Comment on above: Performed By: #### L [id number] ####[facility] ([facility])[address] [place] [address] NRBC (PER 100 WBCS) BY AUTOMATED COUNT 0.0 % Normal 0 [facility] Comment on above: Performed By: #### L [id number] ####[facility] ([facility])[address] [place] [address] PLATELETS (10*3/UL) IN BLOOD AUTOMATED COUNT 212 10*3/uL Normal 150-400 [facility] Comment on above: Performed By: #### L [id number] ####[facility] ([facility])[address] [place] [address] RBC (Bld) [#/Vol] 4.98 10*6/uL Normal 4.20-5.70 [facility] Comment on above: Performed By: #### L [id number] ####[facility] ([facility])[address] [place] [address] WBC (Bld) [#/Vol] 9.20 10*3/uL Normal 4.00-10.60 [facility] Comment on above: Performed By: #### L [id number] ####[facility] ([facility])[address] [place] [address] 30on 11-22-2023 30 Normal [facility] 30 Normal [facility] 30 Normal [facility] BASIC METABOLIC PANELon 03-0 Anion gap [Moles/Vol] 15 mmol/L Normal 7-20 [facility] Comment on above: Performed By: #### L [id number] ####[facility] ([facility])[address] [place] [address] Calcium [Mass/Vol] 9.6 mg/dL Normal 8.6-10.3 [facility] Comment on above: Performed By: #### L [id number] ####[facility] ([facility])[address] [place] [address] Chloride [Moles/Vol] 100 mmol/L Normal 98-107 [facility] Comment on above: Performed By: #### L [id number] ####[facility] ([facility])[address] [place] [address] CO2 [Moles/Vol] 26 mmol/L Normal 21-31 [facility] Comment on above: Performed By: #### L [id number] ####[facility] ([facility])[address] [place] [address] Creatinine [Mass/Vol] 2.19 mg/dL High 0.70-1.30 [facility] Comment on above: Performed By: #### L [id number] ####[facility] ([facility])[address] [place] [address] GLOMERULAR FILTRATION RATE ML/MIN/1.73 SQ M.PREDICTED 29.5 mL/min/1.73m*2 Low >60.0 [facility] Comment on above: Result Comment: [facility]???s estimated glomerular filtration rate (eGFR) [...] of individuals. Performed By: #### L [id number] ####[facility] ([facility])[address] [facility] [address] Glucose [Mass/Vol] 110 mg/dL High 70-100 [facility] Comment on above: Performed By: #### L [id number] ####[facility] ([facility])[address] [facility] [address] Potassium [Moles/Vol] 3.4 mmol/L Low 3.5-5.1 [facility] Comment on above: Performed By: #### L [id number] ####[facility] ([facility] [place] [address] Sodium [Moles/Vol] 138 mmol/L Normal 136-145 [facility] Comment on above: Performed By: #### L [id number] ####[facility] ([facility])[address] [facility] [place] [address] Urea nitrogen [Mass/Vol] 52 mg/dL High 7-25 [facility] Comment on above: Performed By: #### L [id number] ####[facility] ([facility])[address] [facility] [address] UREA NITROGEN/CREATININE (MASS RATIO) IN SER/PLAS 23.7 Normal [facility] Comment on above: Performed By: #### L [id number] ####[facility] ([facility])[address] [place] [address] CBC WITH AUTO DIFFERENTIALon 11-22-2023 Basophils (Bld) [#/Vol] 0.04 10*3/uL Normal 0.00-0.20 [facility] Comment on above: Performed By: #### L [id number] ####[facility] ([facility])[address] [place] [address] Basophils/100 WBC (Bld) 0.3 % Normal 0.0-1.0 [facility] Comment on above: Performed By: #### L [id number] ####[facility] ([facility])[address] [place] [address] Eosinophils (Bld) [#/Vol] 0.07 10*3/uL Normal 0.00-0.50 [facility] Comment on above: Performed By: #### L [id number] ####[facility] ([facility])[address] [place] [address] Eosinophils/100 WBC (Bld) 0.6 % Normal 0.0-6.0 [facility] Comment on above: Performed By: #### L [id number] ####[facility] ([facility])[address] [place] [address] Erythrocyte distribution width (RBC) [Ratio] 15.2 % High 11.5-15.0 [facility] Comment on above: Performed By: #### L [id number] ####[facility] ([facility])[address] [place] [address] ERYTHROCYTE MEAN CORPUSCULAR HEMOGLOBIN CONCENTRATION (G/DL) BY AUTOMATED 32.5 g/dL Normal 32.0-35.0 [facility] Comment on above: Performed By: #### L [id number] ####[facility] ([facility])[address] [place] [address] Hematocrit (Bld) [Volume fraction] 41.2 % Normal 39.0-55.0 [facility] Comment on above: Performed By: #### L [id number] ####[facility] ([facility])[address] [place] [address] Hemoglobin (Bld) [Mass/Vol] 13.4 g/dL Normal 13.0-17.0 [facility] Comment on above: Performed By: #### L [id number] ####[facility] ([facility])[address] [place] [address] Immature granulocytes (Bld) [#/Vol] 0.05 10*3/uL Normal 0.00-0.20 [facility] Comment on above: Performed By: #### L [id number] ####[facility] ([facility])[address] [place] [address] Immature granulocytes/100 WBC (Bld) 0.4 % Normal 0.0-1.0 [facility] Comment on above: Performed By: #### L [id number] ####[facility] ([facility])[address] [place] [address] Lymphocytes (Bld) [#/Vol] 1.07 10*3/uL Low 1.20-4.00 [facility] Comment on above: Performed By: #### L [id number] ####[facility] ([facility])[address] [place] [address] Lymphocytes/100 WBC (Bld) 8.7 % Low 20.0-45.0 [facility] Comment on above: Performed By: #### L [id number] ####[facility] ([facility])[address] [place] [address] MCH (RBC) [Entitic mass] 28.7 pg Normal 27.0-33.0 [facility] Comment on above: Performed By: #### L [id number] ####[facility] [place] [address] MCV (RBC) [Entitic vol] 88.2 fL Normal 82.0-98.0 [facility] Comment on above: Performed By: #### L [id number] ####[facility] ([facility])[address] [place] [address] Monocytes (Bld) [#/Vol] 1.09 10*3/uL High 0.10-1.00 [facility] Comment on above: Performed By: #### L [id number] ####[facility] ([facility])[address] [place], [place] [address] Monocytes/100 WBC (Bld) 8.9 % Normal 5.0-12.0 [facility] Comment on above: Performed By: #### L [id number] ####[facility] ([facility])[address] [place] [address] Neutrophils (Bld) [#/Vol] 9.95 10*3/uL High 1.60-7.60 [facility] Comment on above: Performed By: #### L [id number] ####[facility] ([facility])[address] [place], [place] [address] Neutrophils/100 WBC (Bld) 81.1 % High 40.0-72.0 [facility] Comment on above: Performed By: #### L [id number] ####[facility] ([facility])[address] [place], [place] [address] NRBC (PER 100 WBCS) BY AUTOMATED COUNT 0.0 % Normal 0 [facility] Comment on above: Performed By: #### L [id number] ####[facility] ([facility])[address] [place], [place] [address] PLATELETS (10*3/UL) IN BLOOD AUTOMATED COUNT 196 10*3/uL Normal 150-400 [facility] Comment on above: Performed By: #### L [id number] ####[facility] ([facility])[address] [place], [place] [address] RBC (Bld) [#/Vol] 4.67 10*6/uL Normal 4.20-5.70 [facility] Comment on above: Performed By: #### L [id number] ####[facility] ([facility])[address] [place] [address] WBC (Bld) [#/Vol] 12.27 10*3/uL High 4.00-10.60 [facility] Comment on above: Performed By: #### L [id number] ####[facility] ([facility])[address] [place] [address] 30on 11-21-2023 30 The patient is Moder ately Stable - Low risk of patient condition declining or worsening The patient's goals for the shift include comfort The clinical goals for the shift include stable vitals Normal [facility] 30 Normal [facility] 30 Normal [facility] 30 Normal [facility] BASIC METABOLIC PANELon 03 Anion gap [Moles/Vol] 15 mmol/L Normal 7-20 [facility] Comment on above: Performed By: #### L [id number] ####[facility] ([facility])[address] [place] [address] Calcium [Mass/Vol] 9.7 mg/dL Normal 8.6-10.3 [facility] Comment on above: Performed By: #### L [id number] ####[facility] ([facility])[address] [place] [address] Chloride [Moles/Vol] 100 mmol/L Normal 98-107 [facility] Comment on above: Performed By: #### L [id number] ####[facility] ([facility])[address] [place] [address] CO2 [Moles/Vol] 25 mmol/L Normal 21-31 [facility] Comment on above: Performed By: #### L [id number] ####[facility] ([facility])[address] [place] [address] Creatinine [Mass/Vol] 2.27 mg/dL High 0.70-1.30 [facility] Comment on above: Performed By: #### L [id number] ####[facility] ([facility])[address] [place] [address] GLOMERULAR FILTRATION RATE ML/MIN/1.73 SQ M.PREDICTED 28.3 mL/min/1.73m*2 Low >60.0 [facility] Comment on above: Result Comment: [facility]???s estimated glomerular filtration rate (eGFR) [...] of individuals. Performed By: #### L [id number] ####[facility] ([facility])[address] [place] [address] Glucose [Mass/Vol] 107 mg/dL High 70-100 [facility] Comment on above: Performed By: #### L [id number] ####[facility] ([facility])[address] [place] [address] Potassium [Moles/Vol] 3.1 mmol/L Low 3.5-5.1 [facility] Comment on above: Performed By: #### L [id number] ####[facility] ([facility])[address] [place] [address] Sodium [Moles/Vol] 137 mmol/L Normal 136-145 [facility] Comment on above: Performed By: #### L [id number] ####[facility] ([facility])[address] [place] [address] Urea nitrogen [Mass/Vol] 50 mg/dL High 7-25 [facility] Comment on above: Performed By: #### L [id number] ####[facility] ([facility])[address] [place] [address] UREA NITROGEN/CREATININE (MASS RATIO) IN SER/PLAS 22.0 Normal [facility] Comment on above: Performed By: #### L [id number] ####[facility] ([facility])[address] [place] [address] CBC WITH AUTO DIFFERENTIALon 11-21-2023 Basophils (Bld) [#/Vol] 0.03 10*3/uL Normal 0.00-0.20 [facility] Comment on above: Performed By: #### L [id number] ####[facility] ([facility])[address] [place] [address] Basophils/100 WBC (Bld) 0.2 % Normal 0.0-1.0 [facility] Comment on above: Performed By: #### L [id number] ####[facility] ([facility])[address] [place] [address] Eosinophils (Bld) [#/Vol] 0.04 10*3/uL Normal 0.00-0.50 [facility] Comment on above: Performed By: #### L [id number] ####[facility] ([facility])[address] [place] [address] Eosinophils/100 WBC (Bld) 0.3 % Normal 0.0-6.0 [facility] Comment on above: Performed By: #### L [id number] ####[facility] ([facility])[address] [place] [address] Erythrocyte distribution width (RBC) [Ratio] 15.2 % High 11.5-15.0 [facility] Comment on above: Performed By: #### L [id number] ####[facility] (BEAKER)[address] [place] [address] ERYTHROCYTE MEAN CORPUSCULAR HEMOGLOBIN CONCENTRATION (G/DL) BY AUTOMATED 32.0 g/dL Normal 32.0-35.0 [facility] Comment on above: Performed By: #### L [id number] ####[facility] (BEAKER)[address] [place] [address] Hematocrit (Bld) [Volume fraction] 38.8 % Low 39.0-55.0 [facility] Comment on above: Performed By: #### L [id number] ####[facility] (BEAKER)[address] [place] [address] Hemoglobin (Bld) [Mass/Vol] 12.4 g/dL Low 13.0-17.0 [facility] Comment on above: Performed By: #### L [id number] ####[facility] (BEAKER)[address] [place] [address] Immature granulocytes (Bld) [#/Vol] 0.07 10*3/uL Normal 0.00-0.20 [facility] Comment on above: Performed By: #### L [id number] ####[facility] (BEAKER)[address] [place] [address] Immature granulocytes/100 WBC (Bld) 0.5 % Normal 0.0-1.0 [facility] Comment on above: Performed By: #### L [id number] ####[facility] (BEAKER)[address] [place] [address] Lymphocytes (Bld) [#/Vol] 0.84 10*3/uL Low 1.20-4.00 [facility] Comment on above: Performed By: #### L [id number] ####[facility] (BEAKER)[address] [place] [address] Lymphocytes/100 WBC (Bld) 6.2 % Low 20.0-45.0 [facility] Comment on above: Performed By: #### L [id number] ####[facility] (BEAKER)[address] [place] [address] MCH (RBC) [Entitic mass] 28.9 pg Normal 27.0-33.0 [facility] Comment on above: Performed By: #### L [id number] ####[facility] (BEAKER)[address] [place] [address] MCV (RBC) [Entitic vol] 90.4 fL Normal 82.0-98.0 [facility] Comment on above: Performed By: #### L [id number] ####[facility] (BEAKER)[address] [place] [address] Monocytes (Bld) [#/Vol] 1.00 10*3/uL Normal 0.10-1.00 [facility] Comment on above: Performed By: #### L [id number] ####[facility] (BEAKER)[address] [place] [address] Monocytes/100 WBC (Bld) 7.4 % Normal 5.0-12.0 [facility] Comment on above: Performed By: #### L [id number] ####[facility] ([facility])[address] [place] [address] Neutrophils (Bld) [#/Vol] 11.61 10*3/uL High 1.60-7.60 [facility] Comment on above: Performed By: #### L [id number] ####[facility] ([facility])[address] [place] [address] Neutrophils/100 WBC (Bld) 85.4 % High 40.0-72.0 [facility] Comment on above: Performed By: #### L [id number] ####[facility] ([facility])[address] [place] [address] NRBC (PER 100 WBCS) BY AUTOMATED COUNT 0.0 % Normal 0 [facility] Comment on above: Performed By: #### L [id number] ####[facility] ([facility])[address] [place] [address] PLATELETS (10*3/UL) IN BLOOD AUTOMATED COUNT 176 10*3/uL Normal 150-400 [facility] Comment on above: Performed By: #### L [id number] ####[facility] ([facility])[address] [place] [address] RBC (Bld) [#/Vol] 4.29 10*6/uL Normal 4.20-5.70 [facility] Comment on above: Performed By: #### L [id number] ####[facility] ([facility])[address] [place] [address] WBC (Bld) [#/Vol] 13.59 10*3/uL High 4.00-10.60 [facility] Comment on above: Performed By: #### L [id number] ####[facility] [place] [address] MAGNESIUMon 11-21-2023 Magnesium [Mass/Vol] 2.3 mg/dL Normal 1.9-2.7 [facility] Comment on above: Performed By: #### L [id number] ####[facility] (BEAKER)[address] [place] [address] 30on 11-20-2023 30 Normal [facility] 30 Normal [facility] BASIC METABOLIC PANELon 03-0 Anion gap [Moles/Vol] 15 mmol/L Normal 7-20 [facility] Comment on above: Performed By: #### L [id number] ####[facility] (BEAKER)[address] [place] [address] Calcium [Mass/Vol] 9.4 mg/dL Normal 8.6-10.3 [facility] Comment on above: Performed By: #### L [id number] ####[facility] (BEAKER)[address] [place] [address] Chloride [Moles/Vol] 101 mmol/L Normal 98-107 [facility] Comment on above: Performed By: #### L [id number] ####[facility] (BEAKER)[address] [place] [address] CO2 [Moles/Vol] 26 mmol/L Normal 21-31 [facility] Comment on above: Performed By: #### L [id number] ####[facility] (BEAKER)[address] [place] [address] Creatinine [Mass/Vol] 2.47 mg/dL High 0.70-1.30 [facility] Comment on above: Performed By: #### L [id number] ####[facility] (BEAKER)[address] [place] [address] GLOMERULAR FILTRATION RATE ML/MIN/1.73 SQ M.PREDICTED 25.5 mL/min/1.73m*2 Low >60.0 [facility] Comment on above: Result Comment: [facility]???s estimated glomerular filtration rate (eGFR) [...] of individuals. Performed By: #### L [id number] ####[facility] [place] [address] Glucose [Mass/Vol] 125 mg/dL High 70-100 [facility] Comment on above: Performed By: #### L [id number] ####[facility] ([facility])[address] [place] [address] Potassium [Moles/Vol] 3.5 mmol/L Normal 3.5-5.1 [facility] Comment on above: Performed By: #### L [id number] ####[facility] ([facility])[address] [place] [address] Sodium [Moles/Vol] 138 mmol/L Normal 136-145 [facility] Comment on above: Performed By: #### L [id number] ####[facility] (BEAKER)[address] [place] [address] Urea nitrogen [Mass/Vol] 52 mg/dL High 7-25 [facility] Comment on above: Performed By: #### L [id number] ####[facility] [place] [address] UREA NITROGEN/CREATININE (MASS RATIO) IN SER/PLAS 21.1 Normal [facility] Comment on above: Performed By: #### L [id number] ####[facility] (BEAKER)[address] [place] [address] Anion gap [Moles/Vol] 14 mmol/L Normal 7-20 [facility] Comment on above: Performed By: #### L [id number] ####[facility] [place] [address] Calcium [Mass/Vol] 9.4 mg/dL Normal 8.6-10.3 [facility] Comment on above: Performed By: #### L [id number] ####[facility] (BEAKER)[address] [place] [address] Chloride [Moles/Vol] 102 mmol/L Normal 98-107 [facility] Comment on above: Performed By: #### L [id number] ####[facility] (BEAKER)[address] [place] [address] CO2 [Moles/Vol] 25 mmol/L Normal 21-31 [facility] Comment on above: Performed By: #### L [id number] ####[facility] (BEAKER)[address] [place] [address] Creatinine [Mass/Vol] 2.43 mg/dL High 0.70-1.30 [facility] Comment on above: Performed By: #### L [id number] ####[facility] ([facility] [place] [address] GLOMERULAR FILTRATION RATE ML/MIN/1.73 SQ M.PREDICTED 26.1 mL/min/1.73m*2 Low >60.0 [facility] Comment on above: Result Comment: [facility]???s estimated glomerular filtration rate (eGFR) [...] of individuals. Performed By: #### L [id number] ####[facility] (BEAKER)[address] [place] [address] Glucose [Mass/Vol] 143 mg/dL High 70-100 [facility] Comment on above: Performed By: #### L [id number] ####[facility] (BEAKER)[address] [place] [address] Potassium [Moles/Vol] 3.9 mmol/L Normal 3.5-5.1 [facility] Comment on above: Performed By: #### L [id number] ####[facility] (BEAKER)[address] [place] [address] Sodium [Moles/Vol] 137 mmol/L Normal 136-145 [facility] Comment on above: Performed By: #### L [id number] ####[facility] (BEAKER)[address] [place] [address] Urea nitrogen [Mass/Vol] 47 mg/dL High 7-25 [facility] Comment on above: Performed By: #### L [id number] ####[facility] (BEAKER)[address] [place] [address] UREA NITROGEN/CREATININE (MASS RATIO) IN SER/PLAS 19.3 Normal [facility] Comment on above: Performed By: #### L [id number] ####[facility] (BEAKER)[address] [place] [address] Anion gap [Moles/Vol] 14 mmol/L Normal 7-20 [facility] Comment on above: Performed By: #### L [id number] ####[facility] (BEAKER)[address] [place] [address] Calcium [Mass/Vol] 9.4 mg/dL Normal 8.6-10.3 [facility] Comment on above: Performed By: #### L [id number] ####[facility] (BEAKER)[address] [place] [address] Chloride [Moles/Vol] 103 mmol/L Normal 98-107 [facility] Comment on above: Performed By: #### L [id number] ####[facility] (BEAKER)[address] [place] [address] CO2 [Moles/Vol] 24 mmol/L Normal 21-31 [facility] Comment on above: Performed By: #### L [id number] ####[facility] (BEAKER)[address] [place] [address] Creatinine [Mass/Vol] 2.36 mg/dL High 0.70-1.30 [facility] Comment on above: Performed By: #### L [id number] ####[facility] ([facility])[address] [place] [address] GLOMERULAR FILTRATION RATE ML/MIN/1.73 SQ M.PREDICTED 27.0 mL/min/1.73m*2 Low >60.0 [facility] Comment on above: Result Comment: [facility]???s estimated glomerular filtration rate (eGFR) [...] of individuals. Performed By: #### L [id number] ####[facility] ([facility])[address] [place] [address] Glucose [Mass/Vol] 153 mg/dL High 70-100 [facility] Comment on above: Performed By: #### L [id number] ####[facility] ([facility])[address] [place] [address] Potassium [Moles/Vol] 3.7 mmol/L Normal 3.5-5.1 [facility] Comment on above: Performed By: #### L [id number] ####[facility] ([facility])[address] [place] [address] Sodium [Moles/Vol] 137 mmol/L Normal 136-145 [facility] Comment on above: Performed By: #### L [id number] ####[facility] ([facility])[address] [place] [address] Urea nitrogen [Mass/Vol] 46 mg/dL High 7-25 [facility] Comment on above: Performed By: #### L [id number] ####[facility] ([facility])[address] [place] [address] UREA NITROGEN/CREATININE (MASS RATIO) IN SER/PLAS 19.5 Normal [facility] Comment on above: Performed By: #### L [id number] ####[facility] [place] [address] CBC WITH AUTO DIFFERENTIALon 11-20-2023 Basophils (Bld) [#/Vol] 0.02 10*3/uL Normal 0.00-0.20 [facility] Comment on above: Performed By: #### L [id number] ####[facility] ([facility] [place] [address] Basophils/100 WBC (Bld) 0.1 % Normal 0.0-1.0 [facility] Comment on above: Performed By: #### L [id number] ####[facility] ([facility])[address] [place] [address] Eosinophils (Bld) [#/Vol] 0.00 10*3/uL Normal 0.00-0.50 [facility] Comment on above: Performed By: #### L [id number] ####[facility] (BEAKER)[address] [place] [address] Eosinophils/100 WBC (Bld) 0.0 % Normal 0.0-6.0 [facility] Comment on above: Performed By: #### L [id number] ####[facility] [place] [address] Erythrocyte distribution width (RBC) [Ratio] 15.1 % High 11.5-15.0 [facility] Comment on above: Performed By: #### L [id number] ####[facility] (BEAKER)[address] [place] [address] ERYTHROCYTE MEAN CORPUSCULAR HEMOGLOBIN CONCENTRATION (G/DL) BY AUTOMATED 32.4 g/dL Normal 32.0-35.0 [facility] Comment on above: Performed By: #### L [id number] ####[facility] (BEAKER)[address] [place] [address] Hematocrit (Bld) [Volume fraction] 35.8 % Low 39.0-55.0 [facility] Comment on above: Performed By: #### L [id number] ####[facility] (BEAKER)[address] [place] [address] Hemoglobin (Bld) [Mass/Vol] 11.6 g/dL Low 13.0-17.0 [facility] Comment on above: Performed By: #### L [id number] ####[facility] [place] [address] Immature granulocytes (Bld) [#/Vol] 0.11 10*3/uL Normal 0.00-0.20 [facility] Comment on above: Performed By: #### L [id number] ####[facility] (BEAKER)[address] [place] [address] Immature granulocytes/100 WBC (Bld) 0.8 % Normal 0.0-1.0 [facility] Comment on above: Performed By: #### L [id number] ####[facility] (BEAKER)[address] [place] [address] Lymphocytes (Bld) [#/Vol] 0.59 10*3/uL Low 1.20-4.00 [facility] Comment on above: Performed By: #### L [id number] ####[facility] (BEAKER)[address] [place] [address] Lymphocytes/100 WBC (Bld) 4.2 % Low 20.0-45.0 [facility] Comment on above: Performed By: #### L [id number] ####[facility] (BEAKER)[address] [place] [address] MCH (RBC) [Entitic mass] 29.5 pg Normal 27.0-33.0 [facility] Comment on above: Performed By: #### L [id number] ####[facility] (BEAKER)[address] [place] [address] MCV (RBC) [Entitic vol] 91.1 fL Normal 82.0-98.0 [facility] Comment on above: Performed By: #### L [id number] ####[facility] ([facility] [place] [address] Monocytes (Bld) [#/Vol] 0.85 10*3/uL Normal 0.10-1.00 [facility] Comment on above: Performed By: #### L [id number] ####[facility] ([facility])[address] [place] [address] Monocytes/100 WBC (Bld) 6.0 % Normal 5.0-12.0 [facility] Comment on above: Performed By: #### L [id number] ####[facility] ([facility])[address] [place] [address] Neutrophils (Bld) [#/Vol] 12.57 10*3/uL High 1.60-7.60 [facility] Comment on above: Performed By: #### L [id number] ####[facility] ([facility])[address] [place] [address] Neutrophils/100 WBC (Bld) 88.9 % High 40.0-72.0 [facility] Comment on above: Performed By: #### L [id number] ####[facility] ([facility])[address] [place] [address] NRBC (PER 100 WBCS) BY AUTOMATED COUNT 0.0 % Normal 0 [facility] Comment on above: Performed By: #### L [id number] ####[facility] ([facility])[address] [place] [address] PLATELETS (10*3/UL) IN BLOOD AUTOMATED COUNT 159 10*3/uL Normal 150-400 [facility] Comment on above: Performed By: #### L [id number] ####[facility] [place] [address] RBC (Bld) [#/Vol] 3.93 10*6/uL Low 4.20-5.70 [facility] Comment on above: Performed By: #### L [id number] ####[facility] ([facility])[address] [place] [address] WBC (Bld) [#/Vol] 14.14 10*3/uL High 4.00-10.60 [facility] Comment on above: Performed By: #### L [id number] ####[facility] ([facility])[address] [place] [address] CONSULTon 11-20-2023 CONSULT Normal [facility] CREATININE, URINE, RANDOMon 11-20-2023 Creatinine (U) [Mass/Vol] 63.0 mg/dL Normal 26-299 [facility] Comment on above: Performed By: #### L [id number] ####[facility] ([facility])[address] [place] [address] MAGNESIUMon 11-20-2023 Magnesium [Mass/Vol] 2.2 mg/dL Normal 1.9-2.7 [facility] Comment on above: Performed By: #### L [id number] ####[facility] ([facility])[address] [place] [address] PROTEIN, URINE, RANDOMon Protein (U) [Mass/Vol] 12.0 mg/dL Normal [facility] Comment on above: Result Comment: Ther e are no established reference values for random urine specimens. Performed By: #### L [id number] ####[facility] ([facility])[address] [place] [address] URINALYSIS WITH REFLEX CULTU REon 11-20-2023 BILIRUBIN, TOTAL PRESENCE IN URINE Negative Normal Negative [facility] Comment on above: Order Comment: Micro scopics not performed on urines with negative chemical reactions unless requested on original order. Performed By: #### L [id number] ####[facility] ([facility])[address] [place] [address] Clarity (U) Clear Normal Clear [facility] Comment on above: Order Comment: Micro scopics not performed on urines with negative chemical reactions unless requested on original order. Performed By: #### L [id number] ####[facility] [place] [address] Color (U) Straw Abnormal Yellow [facility] Comment on above: Order Comment: Micro scopics not performed on urines with negative chemical reactions unless requested on original order. Performed By: #### L [id number] ####[facility] ([facility])[address] [place] [address] Glucose (U) [Mass/Vol] 150 mg/dL Abnormal Negative [facility] Comment on above: Order Comment: Micro scopics not performed on urines with negative chemical reactions unless requested on original order. Performed By: #### L [id number] ####[facility] ([facility])[address] [place] [address] HEMOGLOBIN PRESENCE IN URINE Negative Normal Negative [facility] Comment on above: Order Comment: Micro scopics not performed on urines with negative chemical reactions unless requested on original order. Performed By: #### L [id number] ####[facility] ([facility])[address] [place] [address] Ketones Ql (U) Negative Normal Negative [facility] Comment on above: Order Comment: Micro scopics not performed on urines with negative chemical reactions unless requested on original order. Performed By: #### L [id number] ####[facility] ([facility])[address] [place] [address] LEUKOCYTE ESTERASE PRESENCE IN URINE BY TEST STRIP Negative Normal Negative [facility] Comment on above: Order Comment: Micro scopics not performed on urines with negative chemical reactions unless requested on original order. Performed By: #### L [id number] ####[facility] ([facility])[address] [place] [address] NITRITE PRESENCE IN URINE Negative Normal Negative [facility] Comment on above: Order Comment: Micro scopics not performed on urines with negative chemical reactions unless requested on original order. Performed By: #### L [id number] ####[facility] ([facility])[address] [place] [address] pH (U) 5.0 [pH] Normal 5.0-8.0 [facility] Comment on above: Order Comment: Micro scopics not performed on urines with negative chemical reactions unless requested on original order. Performed By: #### L [id number] ####[facility] ([facility])[address] [place] [address] Protein (U) [Mass/Vol] Negative Normal Negative [facility] Comment on above: Order Comment: Micro scopics not performed on urines with negative chemical reactions unless requested on original order. Performed By: #### L [id number] ####[facility] ([facility])[address] [place] [address] Specific gravity (U) [Rel density] 1.011 Low 1.015-1.020 [facility] Comment on above: Order Comment: Micro scopics not performed on urines with negative chemical reactions unless requested on original order. Performed By: #### L [id number] ####[facility] ([facility])[address] [place] [address] 30on 11-19-2023 30 Normal [facility] ANESon 11-19-2023 ANES Normal [facility] B-TYPE NATRIURETIC PEPTIDEon 11-19-2023 Natriuretic peptide B (Bld) [Mass/Vol] 1747 pg/mL High 0-100 [facility] Comment on above: Performed By: #### L [id number] ####[facility] ([facility])[address] [place] [address] BASIC METABOLIC PANELon 03-0 Anion gap [Moles/Vol] 16 mmol/L Normal 7-20 [facility] Comment on above: Performed By: #### L [id number] ####[facility] ([facility])[address] [place] [address] Calcium [Mass/Vol] 9.6 mg/dL Normal 8.6-10.3 [facility] Comment on above: Performed By: #### L [id number] ####[facility] [place] [address] Chloride [Moles/Vol] 103 mmol/L Normal 98-107 [facility] Comment on above: Performed By: #### L [id number] ####[facility] (BEAKER)[address] [place] [address] CO2 [Moles/Vol] 22 mmol/L Normal 21-31 [facility] Comment on above: Performed By: #### L [id number] ####[facility] [place] [address] Creatinine [Mass/Vol] 2.13 mg/dL High 0.70-1.30 [facility] Comment on above: Performed By: #### L [id number] ####[facility] ([facility])[address] [place] [address] GLOMERULAR FILTRATION RATE ML/MIN/1.73 SQ M.PREDICTED 30.5 mL/min/1.73m*2 Low >60.0 [facility] Comment on above: Result Comment: [facility]???s estimated glomerular filtration rate (eGFR) [...] of individuals. Performed By: #### L [id number] ####[facility] (BEAKER)[address] [place] [address] Glucose [Mass/Vol] 118 mg/dL High 70-100 [facility] Comment on above: Performed By: #### L [id number] ####[facility] (BEAKER)[address] [place] [address] Potassium [Moles/Vol] 4.4 mmol/L Normal 3.5-5.1 [facility] Comment on above: Performed By: #### L [id number] ####[facility] [place] [address] Sodium [Moles/Vol] 137 mmol/L Normal 136-145 [facility] Comment on above: Performed By: #### L [id number] ####[facility] ([facility])[address] [place] [address] Urea nitrogen [Mass/Vol] 41 mg/dL High 7-25 [facility] Comment on above: Performed By: #### L [id number] ####[facility] ([facility])[address] [place] [address] UREA NITROGEN/CREATININE (MASS RATIO) IN SER/PLAS 19.2 Normal [facility] Comment on above: Performed By: #### L [id number] ####[facility] ([facility])[address] [place] [address] CBC WITH AUTO DIFFERENTIALon 11-19-2023 Basophils (Bld) [#/Vol] 0.04 10*3/uL Normal 0.00-0.20 [facility] Comment on above: Performed By: #### L [id number] ####[facility] CENTER)[address] [place] [address] Basophils/100 WBC (Bld) 0.5 % Normal 0.0-1.0 [facility] Comment on above: Performed By: #### L [id number] ####[facility] ([facility])[address] [place] [address] Eosinophils (Bld) [#/Vol] 0.03 10*3/uL Normal 0.00-0.50 [facility] Comment on above: Performed By: #### L [id number] ####[facility] ([facility])[address] [place] [address] Eosinophils/100 WBC (Bld) 0.4 % Normal 0.0-6.0 [facility] Comment on above: Performed By: #### L [id number] ####[facility] ([facility] [place] [address] Erythrocyte distribution width (RBC) [Ratio] 15.3 % High 11.5-15.0 [facility] Comment on above: Performed By: #### L [id number] ####[facility] ([facility])[address] [place] [address] ERYTHROCYTE MEAN CORPUSCULAR HEMOGLOBIN CONCENTRATION (G/DL) BY AUTOMATED 31.8 g/dL Low 32.0-35.0 [facility] Comment on above: Performed By: #### L [id number] ####[facility] ([facility] [place] [address] Hematocrit (Bld) [Volume fraction] 39.0 % Normal 39.0-55.0 [facility] Comment on above: Performed By: #### L [id number] ####[facility] ([facility])[address] [place] [address] Hemoglobin (Bld) [Mass/Vol] 12.4 g/dL Low 13.0-17.0 [facility] Comment on above: Performed By: #### L [id number] ####[facility] ([facility])[address] [place] [address] Immature granulocytes (Bld) [#/Vol] 0.03 10*3/uL Normal 0.00-0.20 [facility] Comment on above: Performed By: #### L [id number] ####[facility] ([facility])[address] [place] [address] Immature granulocytes/100 WBC (Bld) 0.4 % Normal 0.0-1.0 [facility] Comment on above: Performed By: #### L [id number] ####[facility] ([facility])[address] [place] [address] Lymphocytes (Bld) [#/Vol] 1.02 10*3/uL Low 1.20-4.00 [facility] Comment on above: Performed By: #### L [id number] ####[facility] ([facility])[address] [place] [address] Lymphocytes/100 WBC (Bld) 12.1 % Low 20.0-45.0 [facility] Comment on above: Performed By: #### L [id number] ####[facility] ([facility])[address] [place] [address] MCH (RBC) [Entitic mass] 29.0 pg Normal 27.0-33.0 [facility] Comment on above: Performed By: #### L [id number] ####[facility] ([facility])[address] [place] [address] MCV (RBC) [Entitic vol] 91.3 fL Normal 82.0-98.0 [facility] Comment on above: Performed By: #### L [id number] ####[facility] ([facility])[address] [place] [address] Monocytes (Bld) [#/Vol] 0.45 10*3/uL Normal 0.10-1.00 [facility] Comment on above: Performed By: #### L [id number] ####[facility] ([facility])[address] [place] [address] Monocytes/100 WBC (Bld) 5.3 % Normal 5.0-12.0 [facility] Comment on above: Performed By: #### L [id number] ####[facility] ([facility])[address] [place] [address] Neutrophils (Bld) [#/Vol] 6.88 10*3/uL Normal 1.60-7.60 [facility] Comment on above: Performed By: #### L [id number] ####[facility] ([facility])[address] [place] [address] Neutrophils/100 WBC (Bld) 81.3 % High 40.0-72.0 [facility] Comment on above: Performed By: #### L [id number] ####[facility] ([facility])[address] [place] [address] NRBC (PER 100 WBCS) BY AUTOMATED COUNT 0.0 % Normal 0 [facility] Comment on above: Performed By: #### L [id number] ####[facility] ([facility])[address] [place] [address] PLATELETS (10*3/UL) IN BLOOD AUTOMATED COUNT 167 10*3/uL Normal 150-400 [facility] Comment on above: Performed By: #### L [id number] ####[facility] ([facility])[address] [place] [address] RBC (Bld) [#/Vol] 4.27 10*6/uL Normal 4.20-5.70 [facility] Comment on above: Performed By: #### L [id number] ####[facility] ([facility])[address] [place] [address] WBC (Bld) [#/Vol] 8.45 10*3/uL Normal 4.00-10.60 [facility] Comment on above: Performed By: #### L [id number] ####[facility] ([facility])[address] [place] [address] CONSULTon 11-19-2023 CONSULT [facility] HPon 11-19-2023 HP [facility] HP H&P reviewed. The pa gil was examined and there are no changes to the H&P. [facility] NURSNOTEon 11-19-2023 NURSNOTE Family took patient' s wallet home. [facility] NURSNOTE Report called to Vneessa lui RN, RN verbalized understanding. [facility] POCT GLUCOSE METER UNSOLICIT ED RESULTSon 11-19-2023 Glucose [Mass/Vol] 103 mg/dL Normal 70-105 [facility] Comment on above: Order Comment: Waive d Testing in the ED is performed under the ED CLIA certificate #[id number]. Result Comment: [email or web address] Performed By: #### L [id number] ####[facility] ([facility])[address] [place] [address] HPon 11-18-2023 HP [facility] 36on 11-14-2023 36 Patient calling want ing to know if he should resume Farxiga and/or lisinopril. He just had labs yesterday and he's got an apt with you on Saturday. Thanks. Normal [facility] 36on 11-06-2023 36 Normal [facility] 36on 10-31-2023 36 Normal [facility] Telephoneon 10-31-2023 Telephone Normal [facility] CNOVon 10-29-2023 CNOV Normal [facility] ECG COMPLETEon 10-29-2023 ECG COMPLETE Normal [facility] Telemedicineon 10-10-2023 Telemedicine Normal [facility] 36on 10-01-2023 36 Normal [facility] Documentationon 10-01-2023 Documentation Normal [facility] 30on 09-29-2023 30 Normal [facility] ANTI-XA (HEPARIN LEVEL)on HEPARIN UNFRACTIONATED (U/ML) IN PPP BY CHROMOGENIC METHOD 0.51 IU/mL Normal 0.3-0.7 [facility] Comment on above: Result Comment: [place] roxaban and Apixaban will interfere with the anti Xa assay used to monitor UFH and LMWH. Performed By: #### L [id number] ####[facility] ([facility])[address] [place] [address] HEPARIN UNFRACTIONATED (U/ML) IN PPP BY CHROMOGENIC METHOD 0.20 IU/mL Low 0.3-0.7 [facility] Comment on above: Result Comment: [place] roxaban and Apixaban will interfere with the anti Xa assay used to monitor UFH and LMWH. Performed By: #### L [id number] ####[facility] ([facility]ER)[address] [place] [address] BASIC METABOLIC PANELon 09-16 Anion gap [Moles/Vol] 10 mmol/L Normal 7-20 [facility] Comment on above: Performed By: #### L [id number] ####[facility] ([facility])[address] [place] [address] Calcium [Mass/Vol] 9.6 mg/dL Normal 8.6-10.3 [facility] Comment on above: Performed By: #### L [id number] ####[facility] ([facility])[address] [place] [address] Chloride [Moles/Vol] 102 mmol/L Normal 98-107 [facility] Comment on above: Performed By: #### L [id number] ####[facility] ([facility]ER)[address] [place] [address] CO2 [Moles/Vol] 27 mmol/L Normal 21-31 [facility] Comment on above: Performed By: #### L [id number] ####[facility] ([facility] [place] [address] Creatinine [Mass/Vol] 2.03 mg/dL High 0.70-1.30 [facility] Comment on above: Performed By: #### L [id number] ####[facility] ([facility])[address] [place] [address] GLOMERULAR FILTRATION RATE ML/MIN/1.73 SQ M.PREDICTED 32.3 mL/min/1.73m*2 Low >60.0 [facility] Comment on above: Result Comment: [facility]???s estimated glomerular filtration rate (eGFR) [...] of individuals. Performed By: #### L [id number] ####[facility] ([facility])[address] [place] [address] Glucose [Mass/Vol] 102 mg/dL High 70-100 [facility] Comment on above: Performed By: #### L [id number] ####[facility] ([facility])[address] [place] [address] Potassium [Moles/Vol] 3.9 mmol/L Normal 3.5-5.1 [facility] Comment on above: Performed By: #### L [id number] ####[facility] ([facility])[address] [place] [address] Sodium [Moles/Vol] 135 mmol/L Low 136-145 [facility] Comment on above: Performed By: #### L [id number] ####[facility] ([facility])[address] [place] [address] Urea nitrogen [Mass/Vol] 37 mg/dL High 7-25 [facility] Comment on above: Performed By: #### L [id number] ####[facility] ([facility])[address] [place] [address] UREA NITROGEN/CREATININE (MASS RATIO) IN SER/PLAS 18.2 Normal [facility] Comment on above: Performed By: #### L [id number] ####[facility] ([facility])[address] [place] [address] CBCon 09-29-2023 Erythrocyte distribution width (RBC) [Ratio] 15.0 % Normal 11.5-15.0 [facility] Comment on above: Performed By: #### L [id number] ####[facility] ([facility])[address] [place] [address] ERYTHROCYTE MEAN CORPUSCULAR HEMOGLOBIN CONCENTRATION (G/DL) BY AUTOMATED 31.7 g/dL Low 32.0-35.0 [facility] Comment on above: Performed By: #### L [id number] ####[facility] ([facility])[address] [place] [address] Hematocrit (Bld) [Volume fraction] 41.7 % Normal 39.0-55.0 [facility] Comment on above: Performed By: #### L [id number] ####[facility] ([facility])[address] [place] [address] Hemoglobin (Bld) [Mass/Vol] 13.2 g/dL Normal 13.0-17.0 [facility] Comment on above: Performed By: #### L [id number] ####[facility] ([facility])[address] [place] [address] MCH (RBC) [Entitic mass] 28.7 pg Normal 27.0-33.0 [facility] Comment on above: Performed By: #### L [id number] ####[facility] ([facility])[address] [place] [address] MCV (RBC) [Entitic vol] 90.7 fL Normal 82.0-98.0 [facility] Comment on above: Performed By: #### L [id number] ####[facility] ([facility])[address] [place] [address] PLATELETS (10*3/UL) IN BLOOD AUTOMATED COUNT 169 10*3/uL Normal 150-400 [facility] Comment on above: Performed By: #### L [id number] ####[facility] ([facility])[address] [place] [address] RBC (Bld) [#/Vol] 4.60 10*6/uL Normal 4.20-5.70 [facility] Comment on above: Performed By: #### L [id number] ####[facility] ([facility])[address] [place] [address] WBC (Bld) [#/Vol] 6.82 10*3/uL Normal 4.00-10.60 [facility] Comment on above: Performed By: #### L [id number] ####[facility] ([facility])[address] [place] [address] DSon 09-29-2023 DS Normal [facility] MAGNESIUMon 09-29-2023 Magnesium [Mass/Vol] 2.0 mg/dL Normal 1.9-2.7 [facility] Comment on above: Performed By: #### L [id number] ####[facility] ([facility])[address] [place] [address] NURSNOTEon 09-29-2023 NURSNOTE Normal [facility] PROTIME-INRon 09-29-2023 INR IN PPP BY COAGULATION ASSAY 1.20 High 0.90-1.10 [facility] Comment on above: Result Comment: ACCC [...] CHEST 1995;[id number]. Performed By: #### L [id number] ####[facility])[address] [place] [address] PROTHROMBIN TIME (PT) IN PPP BY COAGULATION ASSAY 15.2 Seconds High 12.3-14.8 [facility] Comment on above: Performed By: #### L [id number] ####[facility])[address] [place] [address] TROPONIN Ion 09-29-2023 Troponin I.cardiac [Mass/Vol] 0.25 ng/mL Critically high 0.00-0.04 [facility] Comment on above: Result Comment: M-[place] EVIOUS CRITICAL RESULT Performed By: #### L [id number] ####[facility])[address] [place] [address] 30on 09-28-2023 30 Normal [facility] 30 Normal [facility] ANTI-XA (HEPARIN LEVEL)on HEPARIN UNFRACTIONATED (U/ML) IN PPP BY CHROMOGENIC METHOD 0.23 IU/mL Low 0.3-0.7 [facility] Comment on above: Result Comment: [place] roxaban and Apixaban will interfere with the anti Xa assay used to monitor UFH and LMWH. Performed By: #### L [id number] ####[facility] ([facility])[address] [place] [address] HEPARIN UNFRACTIONATED (U/ML) IN PPP BY CHROMOGENIC METHOD 0.55 IU/mL Normal 0.3-0.7 [facility] Comment on above: Result Comment: [place] roxaban and Apixaban will interfere with the anti Xa assay used to monitor UFH and LMWH. Performed By: #### L [id number] ####[facility] ([facility])[address] [place] [address] HEPARIN UNFRACTIONATED (U/ML) IN PPP BY CHROMOGENIC METHOD 0.71 IU/mL High 0.3-0.7 [facility] Comment on above: Result Comment: [place] roxaban and Apixaban will interfere with the anti Xa assay used to monitor UFH and LMWH. Performed By: #### L [id number] ####[facility] ([facility])[address] [place] [address] CBC WITH AUTO DIFFERENTIALon 09-28-2023 Basophils (Bld) [#/Vol] 0.04 10*3/uL Normal 0.00-0.20 [facility] Comment on above: Performed By: #### L [id number] ####[facility] ([facility])[address] [place] [address] Basophils/100 WBC (Bld) 0.6 % Normal 0.0-1.0 [facility] Comment on above: Performed By: #### L [id number] ####[facility] ([facility])[address] [place] [address] Eosinophils (Bld) [#/Vol] 0.30 10*3/uL Normal 0.00-0.50 [facility] Comment on above: Performed By: #### L [id number] ####[facility] ([facility])[address] [place] [address] Eosinophils/100 WBC (Bld) 4.2 % Normal 0.0-6.0 [facility] Comment on above: Performed By: #### L [id number] ####[facility] ([facility]ER)[address] [place] [address] Erythrocyte distribution width (RBC) [Ratio] 15.4 % High 11.5-15.0 [facility] Comment on above: Performed By: #### L [id number] ####[facility] [place] [address] ERYTHROCYTE MEAN CORPUSCULAR HEMOGLOBIN CONCENTRATION (G/DL) BY AUTOMATED 31.8 g/dL Low 32.0-35.0 [facility] Comment on above: Performed By: #### L [id number] ####[facility] ([facility])[address] [place] [address] Hematocrit (Bld) [Volume fraction] 42.1 % Normal 39.0-55.0 [facility] Comment on above: Performed By: #### L [id number] ####[facility] ([facility])[address] [place] [address] Hemoglobin (Bld) [Mass/Vol] 13.4 g/dL Normal 13.0-17.0 [facility] Comment on above: Performed By: #### L [id number] ####[facility] ([facility])[address] [place] [address] Immature granulocytes (Bld) [#/Vol] 0.03 10*3/uL Normal 0.00-0.20 [facility] Comment on above: Performed By: #### L [id number] ####[facility] ([facility])[address] [place] [address] Immature granulocytes/100 WBC (Bld) 0.4 % Normal 0.0-1.0 [facility] Comment on above: Performed By: #### L [id number] ####[facility] ([facility])[address] [place] [address] Lymphocytes (Bld) [#/Vol] 1.37 10*3/uL Normal 1.20-4.00 [facility] Comment on above: Performed By: #### L [id number] ####[facility] ([facility])[address] [place] [address] Lymphocytes/100 WBC (Bld) 19.2 % Low 20.0-45.0 [facility] Comment on above: Performed By: #### L [id number] ####[facility] ([facility])[address] [place] [address] MCH (RBC) [Entitic mass] 29.2 pg Normal 27.0-33.0 [facility] Comment on above: Performed By: #### L [id number] ####[facility] ([facility])[address] [place] [address] MCV (RBC) [Entitic vol] 91.7 fL Normal 82.0-98.0 [facility] Comment on above: Performed By: #### L [id number] ####[facility] ([facility])[address] [place] [address] Monocytes (Bld) [#/Vol] 0.69 10*3/uL Normal 0.10-1.00 [facility] Comment on above: Performed By: #### L [id number] ####[facility] ([facility])[address] [place] [address] Monocytes/100 WBC (Bld) 9.7 % Normal 5.0-12.0 [facility] Comment on above: Performed By: #### L [id number] ####[facility] ([facility]ER)[address] [place] [address] Neutrophils (Bld) [#/Vol] 4.70 10*3/uL Normal 1.60-7.60 [facility] Comment on above: Performed By: #### L [id number] ####[facility] ([facility])[address] [place] [address] Neutrophils/100 WBC (Bld) 65.9 % Normal 40.0-72.0 [facility] Comment on above: Performed By: #### L [id number] ####[facility] ([facility])[address] [place] [address] NRBC (PER 100 WBCS) BY AUTOMATED COUNT 0.0 % Normal 0 [facility] Comment on above: Performed By: #### L [id number] ####[facility] ([facility])[address] [place] [address] PLATELETS (10*3/UL) IN BLOOD AUTOMATED COUNT 178 10*3/uL Normal 150-400 [facility] Comment on above: Performed By: #### L [id number] ####[facility] ([facility])[address] [place] [address] RBC (Bld) [#/Vol] 4.59 10*6/uL Normal 4.20-5.70 [facility] Comment on above: Performed By: #### L [id number] ####[facility] ([facility])[address] [place] [address] WBC (Bld) [#/Vol] 7.13 10*3/uL Normal 4.00-10.60 [facility] Comment on above: Performed By: #### L [id number] ####[facility] ([facility] [place] [address] COMPREHENSIVE METABOLIC PANE Aldo 09-28-2023 Albumin [Mass/Vol] 4.1 g/dL Normal 3.5-5.7 [facility] Comment on above: Performed By: #### L [id number] ####[facility] ([facility] [place] [address] ALP [Catalytic activity/Vol] 84 U/L Normal 34-104 [facility] Comment on above: Performed By: #### L [id number] ####[facility] ([facility]ER)[address] [place] [address] ALT [Catalytic activity/Vol] 11 U/L Normal 7-52 [facility] Comment on above: Performed By: #### L [id number] ####[facility] ([facility])[address] [place] [address] Anion gap [Moles/Vol] 16 mmol/L Normal 7-20 [facility] Comment on above: Performed By: #### L [id number] ####[facility] (BE[facility]ER)[address] [place] [address] AST [Catalytic activity/Vol] 20 U/L Normal 13-39 [facility] Comment on above: Performed By: #### L [id number] ####[facility] ([facility])[address] [place] [address] Bilirubin [Mass/Vol] 1.0 mg/dL Normal 0.3-1.0 [facility] Comment on above: Performed By: #### L [id number] ####[facility] ([facility])[address] [place] [address] Calcium [Mass/Vol] 10.0 mg/dL Normal 8.6-10.3 [facility] Comment on above: Performed By: #### L [id number] ####[facility] ([facility])[address] [place] [address] Chloride [Moles/Vol] 104 mmol/L Normal 98-107 [facility] Comment on above: Performed By: #### L [id number] ####[facility] ([facility])[address] [place] [address] CO2 [Moles/Vol] 22 mmol/L Normal 21-31 [facility] Comment on above: Performed By: #### L [id number] ####[facility] ([facility]ER)[address] [place] [address] Creatinine [Mass/Vol] 2.06 mg/dL High 0.70-1.30 [facility] Comment on above: Performed By: #### L [id number] ####[facility] ([facility])[address] [place] [address] GLOMERULAR FILTRATION RATE ML/MIN/1.73 SQ M.PREDICTED 31.8 mL/min/1.73m*2 Low >60.0 [facility] Comment on above: Result Comment: [facility]???s estimated glomerular filtration rate (eGFR) [...] of individuals. Performed By: #### L [id number] ####[facility] ([facility])[address] [place] [address] Glucose [Mass/Vol] 93 mg/dL Normal 70-100 [facility] Comment on above: Performed By: #### L [id number] ####[facility] ([facility])[address] [place] [address] Potassium [Moles/Vol] 4.2 mmol/L Normal 3.5-5.1 [facility] Comment on above: Performed By: #### L [id number] ####[facility] ([facility])[address] [place] [address] Protein [Mass/Vol] 7.1 g/dL Normal 6.0-8.3 [facility] Comment on above: Performed By: #### L [id number] ####[facility] [place] [address] Sodium [Moles/Vol] 138 mmol/L Normal 136-145 [facility] Comment on above: Performed By: #### L [id number] ####[facility] ([facility]ER)[address] [place] [address] Urea nitrogen [Mass/Vol] 35 mg/dL High 7-25 [facility] Comment on above: Performed By: #### L [id number] ####[facility] [place] [address] UREA NITROGEN/CREATININE (MASS RATIO) IN SER/PLAS 17.0 Normal [facility] Comment on above: Performed By: #### L [id number] ####[facility] [facility] [address] CONSULTon 09-28-2023 CONSULT Normal [facility] LIPID PANELon 09-28-2023 CHOL/HDL 2.4 mg/dL Normal [facility] Comment on above: Performed By: #### L [id number] ####[facility] [facility] [address] Cholesterol [Mass/Vol] 123 mg/dL Normal 120-200 [facility] Comment on above: Performed By: #### L [id number] ####[facility] [address] Magnesium [Mass/Vol] 56 mg/dL Normal 40-149 [facility] Comment on above: Result Comment: TRIG LYCERIDE REFERENCE RANGE:20 YEARS AND OLDER CARDIOVASCULAR RISKLESS THAN 150 mg/dL LOW [id number] TO 199 mg/dL BORDERLINE [id number] mg/dL AND GREATER HIGH RISK Performed By: #### L [id number] ####[facility] ([facility] [place] [address] Magnesium [Mass/Vol] 61 mg/dL Normal 0-160 [facility] Comment on above: Performed By: #### L [id number] ####[facility] ([facility])[address] [place] [address] Magnesium [Mass/Vol] 51 mg/dL Normal 23-92 [facility] Comment on above: Performed By: #### L [id number] ####[facility] ([facility])[address] [place] [address] NON HDL CHOL. (LDL+VLDL) 72 Normal [facility] Comment on above: Performed By: #### L [id number] ####[facility] (BEAKER)[address] [place] [address] TOTAL VLDL-C 11 mg/dL Normal 0-40 [facility] Comment on above: Performed By: #### L [id number] ####[facility] ([facility]AKER)[address] [place] [address] TROPONIN Ion 09-28-2023 Troponin I.cardiac [Mass/Vol] 0.31 ng/mL Critically high 0.00-0.04 [facility] Comment on above: Result Comment: [place] EVIOUS CRITICAL RESULTPrevious result verified on 09/27/2023 1732 on specimen/case [id number] called with component Troponin I for procedure Troponin I with value 0.32 ng/mL. Performed By: #### L [id number] ####[facility] ([facility])[address] [place] [address] TSH3 REFLEX TO FT4on 024 THYROTROPIN (MIU/L) IN SER/PLAS BY DETECTION LIMIT <= 0.05 MIU/L 1.41 mIU/L Normal 0.34-5.60 [facility] Comment on above: Performed By: #### L [id number] ####[facility] ([facility])[address] [place] [address] 30on 09-27-2023 30 Normal [facility] 30 Normal [facility] ANTI-XA (HEPARIN LEVEL)on HEPARIN UNFRACTIONATED (U/ML) IN PPP BY CHROMOGENIC METHOD 0.75 IU/mL High 0.3-0.7 [facility] Comment on above: Result Comment: Padmini roxaban and Apixaban will interfere with the anti Xa assay used to monitor UFH and LMWH. Performed By: #### L [id number] ####[facility] ([facility])[address] [place] [address] HEPARIN UNFRACTIONATED (U/ML) IN PPP BY CHROMOGENIC METHOD 0.93 IU/mL Critically high 0.3-0.7 [facility] Comment on above: Order Comment: Check anti-Xa level every 6 hours while on heparin infusion, or per protocol. Result Comment: Padmini roxaban and Apixaban will interfere with the anti Xa assay used to monitor UFH and LMWH. Performed By: #### L [id number] ####[facility] ([facility])[address] [place] [address] BASIC METABOLIC PANELon 09-16 Anion gap [Moles/Vol] 14 mmol/L Normal 7-20 [facility] Comment on above: Performed By: #### L [id number] ####[facility] ([facility]AKER)[address] [place] [address] Calcium [Mass/Vol] 9.8 mg/dL Normal 8.6-10.3 [facility] Comment on above: Performed By: #### L [id number] ####[facility] (BEAKER)[address] [place] [address] Chloride [Moles/Vol] 105 mmol/L Normal 98-107 [facility] Comment on above: Performed By: #### L [id number] ####[facility] (BEAKER)[address] [place] [address] CO2 [Moles/Vol] 25 mmol/L Normal 21-31 [facility] Comment on above: Performed By: #### L [id number] ####[facility] (BEAKER)[address] [place] [address] Creatinine [Mass/Vol] 2.01 mg/dL High 0.70-1.30 [facility] Comment on above: Performed By: #### L [id number] ####[facility] (BEAKER)[address] [place] [address] GLOMERULAR FILTRATION RATE ML/MIN/1.73 SQ M.PREDICTED 32.7 mL/min/1.73m*2 Low >60.0 [facility] Comment on above: Result Comment: [facility]???s estimated glomerular filtration rate (eGFR) [...] of individuals. Performed By: #### L [id number] ####[facility] ([facility])[address] [place] [address] Glucose [Mass/Vol] 103 mg/dL High 70-100 [facility] Comment on above: Performed By: #### L [id number] ####[facility] ([facility])[address] [place] [address] Potassium [Moles/Vol] 4.3 mmol/L Normal 3.5-5.1 [facility] Comment on above: Performed By: #### L [id number] ####[facility] ([facility])[address] [place] [address] Sodium [Moles/Vol] 140 mmol/L Normal 136-145 [facility] Comment on above: Performed By: #### L [id number] ####[facility] ([facility])[address] [place] [address] Urea nitrogen [Mass/Vol] 37 mg/dL High 7-25 [facility] Comment on above: Performed By: #### L [id number] ####[facility] ([facility])[address] [place] [address] UREA NITROGEN/CREATININE (MASS RATIO) IN SER/PLAS 18.4 Normal [facility] Comment on above: Performed By: #### L [id number] ####[facility] ([facility])[address] [place] [address] CONSULTon 09-27-2023 CONSULT Normal [facility] HPon 09-27-2023 HP Normal [facility] MAGNESIUMon 09-27-2023 Magnesium [Mass/Vol] 2.0 mg/dL Normal 1.9-2.7 [facility] Comment on above: Performed By: #### L [id number] ####[facility] ([facility])[address] [place] [address] Orders Onlyon 09-27-2023 Orders Only Normal [facility] PLATELET COUNTon 09-27-2023 PLATELETS (10*3/UL) IN BLOOD AUTOMATED COUNT 165 10*3/uL Normal 150-400 [facility] Comment on above: Performed By: #### L [id number] ####[facility] ([facility])[address] [place] [address] TROPONIN Ion 09-27-2023 Troponin I.cardiac [Mass/Vol] 0.31 ng/mL Critically high 0.00-0.04 [facility] Comment on above: Result Comment: [place] EVIOUS CRITICAL RESULTPrevious result verified on 09/27/2023 1732 on specimen/case [id number] called with component Troponin I for procedure Troponin I with value 0.32 ng/mL. Performed By: #### L [id number] ####[facility] ([facility])[address] [place] [address] Troponin I.cardiac [Mass/Vol] 0.32 ng/mL Critically high 0.00-0.04 [facility] Comment on above: Result Comment: M-TR OPONIN INITIAL CRITICAL HIGH; RESPUN AND RETESTED Performed By: #### L [id number] ####[facility] ([facility])[address] [place] [address] PSA SerPl-mCncon 09-24-2023 Prostate specific Ag [Mass/Vol] ng/mL Normal <2.60 [facility] Comment on above: Order Comment: Speci men Type: BLOOD SPECIMENOrdering Facility: [facility] Address: [address] [place] [address] Result Comment: Anival juarez PSA test methodology used is the Electrochemiluminescence Immunoassay by [employer]. Total PSA values by differing methodologies cannot be interchanged. Performed By: #### 2 [id number] ####[facility] LABCLIA [id number] [place] [address] [place] ICD REMOTE CHECKon 3 AV Delay Adaptive Paced Minimum (ms) 200 ms [facility] AV Delay Adaptive Sensed Minimum (ms) 170 ms [facility] Bj RA Pacing Amplitude (volts) 2.0 V [facility] Bj RA Pacing Polarity BI [facility] Bj RA Pacing Pulse Width (ms) 0.5 ms [facility] Bj RA Sensing Amplitude (mvolts) 0.25 mV [facility] Bj RA Sensing Polarity BI [facility] Bj RV Pacing Amplitude (volts) 2.0 V [facility] Bj RV Pacing Polarity BI [facility] Bj RV Pacing Pulse Width (ms) 0.5 ms [facility] Bj RV Sensing Amplitude (mvolts) 0.3 mV [facility] Bj RV Sensing Polarity BI [facility] Detection Configuration (Vent) 2 - Zone [facility] FastVT_Detection Interval 250 ms [facility] FastVT_Therapy Configuration 1 ATP(s) + 8 Shock(s) [facility] ICD FastVT DetectionStatus ENABLED [facility] ICD-AMS EPISODES 170 {beats}/min [facility] ICD-ATP Episodes (Vent) 0 [facility] ICD-ATRIALFIBRILLAT ION 2 [facility] ICD-ATRIALTACHYCARD IA 2 [facility] ICD-ATRIALTACHYCARD IA 5 [facility] ICD-Device Mfg BSX [facility] ICD-Fast Ventricular Tachycardia 5 [facility] ICD-LEADIMPEDANCEAT RIAL 746 ohm [facility] ICD-Percent Pacing (Atrial) 1 % [facility] ICD-Percent Pacing (Vent) 0 % [facility] ICD-Shocks Aborted (Vent) 0 [facility] [id number] D 0 [facility] ICD-SHOCKSABORTED 0 [facility] ICD-SHOCKSDELIVERED VENTRICULAR 0 [facility] ICD-Ventricular Fibrillation 0 [facility] Lead Impedance (RV) 426 ohm [facility] Lead Impedance High Voltage 49 ohm [facility] Lead1 Mfg BSX [facility] Lead2 Mfg BSX [facility] Location RV [facility] Location RA [facility] Lower Rate (bpm) 50 {beats}/min [facility] Max Sensor Rate (bpm) 130 {beats}/min [facility] MDT_PROG_TACHY_ZONE _DETECTIONS_STATUS ENABLED [facility] Model D142 INOGEN [facility] Model 0675 Amasa 4-Front [facility] Model 7741 Ingevity MRI [facility] Pacing Mode DDDR [facility] Serial Number [id number] [facility] Serial Number [id number] [facility] Serial Number [id number] [facility] Test Charge Energy 23 J [facility] Test Charge Time 10.2 s [facility] Therapy Status (Vent) Enabled [facility] Thresh RA Capture Amplitude (volts) 0.6 V [facility] Thresh RA Capture Duration (ms) 0.5 ms [facility] Thresh RV Capture Amplitude (VOLTS) 0.5 V [facility] Thresh RV Capture Duration (MS) 0.5 ms [facility] Tracking Rate (bpm) 130 {beats}/min [facility] VF Zone Detection Interval 250 ms [facility] VF Zone Therapy Configuration 1 ATP(s) + 8 Shock(s) [facility] No Panel Informationon 02-21 BLANK _ [facility] ICD-ATRIALTACHYCARD IA 0 [facility] ICD-Fast Ventricular Tachycardia 0 [facility] Implant Date 03/24/2019 [facility] FREE T3on 02-08-2023 FREE T3 3.21 pg/mlL Normal 2.18-3.98 [facility] Comment on above: Performed By: #### V ITAD #### [facility] [address] [address] [address] Silva Burnett FREE T4on 02-08-2023 Free T4 [Mass/Vol] 0.74 ng/dL Critically low 0.76-1.46 [facility] Comment on above: Performed By: #### B MP, BNP #### [facility] [address] [address] [address] Silva Burnett TSHon 02-08-2023 TSH 0.168 uIU/mL Critically low 0.358-3.740 [facility] Comment on above: Performed By: #### V ITAD #### [facility] [address] [address] [address] Silva Burnett ICD REMOTE CHECKon 3 AV Delay Adaptive Paced Minimum (ms) 200 ms [facility] AV Delay Adaptive Sensed Minimum (ms) 170 ms [facility] Bj RA Pacing Amplitude (volts) 2 V [facility] Bj RA Pacing Polarity BI [facility] Bj RA Pacing Pulse Width (ms) 0.5 ms [facility] Bj RA Sensing Amplitude (mvolts) 0.25 mV [facility] Bj RA Sensing Polarity BI [facility] Bj RV Pacing Amplitude (volts) 2 V [facility] Bj RV Pacing Polarity BI [facility] Bj RV Pacing Pulse Width (ms) 0.5 ms [facility] Bj RV Sensing Amplitude (mvolts) 0.3 mV [facility] Bj RV Sensing Polarity BI [facility] Detection Configuration (Vent) 2 - Zone [facility] FastVT_Detection Interval 250 ms [facility] FastVT_Therapy Configuration 1 ATP(s) + 8 Shock(s) [facility] ICD FastVT DetectionStatus ENABLED [facility] ICD-AMS EPISODES 170 {beats}/min [facility] ICD-ATP Episodes (Vent) 0 [facility] ICD-ATRIALFIBRILLAT ION 1 [facility] ICD-ATRIALTACHYCARD IA 1 [facility] ICD-ATRIALTACHYCARD IA 3 [facility] ICD-Device Mfg BSX [facility] ICD-Fast Ventricular Tachycardia 3 [facility] ICD-LEADIMPEDANCEAT RIAL 786 ohm [facility] ICD-Percent Pacing (Atrial) 1 % [facility] ICD-Percent Pacing (Vent) 0 % [facility] ICD-Shocks Aborted (Vent) 0 [facility] [id number] D 0 [facility] ICD-SHOCKSABORTED 0 [facility] ICD-SHOCKSDELIVERED VENTRICULAR 0 [facility] ICD-Ventricular Fibrillation 0 [facility] Lead Impedance (RV) 458 ohm [facility] Lead Impedance High Voltage 53 ohm [facility] Lead1 Mfg BSX [facility] Lead2 Mfg BSX [facility] Location RV [facility] Location RA [facility] Lower Rate (bpm) 50 {beats}/min [facility] Max Sensor Rate (bpm) 130 {beats}/min [facility] MDT_PROG_TACHY_ZONE _DETECTIONS_STATUS ENABLED [facility] Model D142 INOGEN [facility] Model 0675 Amasa 4-Front [facility] Model 7741 Ingevity MRI [facility] Pacing Mode DDDR [facility] Serial Number [id number] [facility] Serial Number [id number] [facility] Serial Number [id number] [facility] Test Charge Energy 23 J [facility] Test Charge Time 10.2 s [facility] Therapy Status (Vent) Enabled [facility] Thresh RA Capture Amplitude (volts) 0.6 V [facility] Thresh RA Capture Duration (ms) 0.5 ms [facility] Thresh RV Capture Amplitude (VOLTS) 0.5 V [facility] Thresh RV Capture Duration (MS) 0.5 ms [facility] Tracking Rate (bpm) 130 {beats}/min [facility] VF Zone Detection Interval 250 ms [facility] VF Zone Therapy Configuration 1 ATP(s) + 8 Shock(s) [facility] No Panel Informationon 11-07 BLANK _ [facility] ICD-ATRIALTACHYCARD IA 0 [facility] ICD-Fast Ventricular Tachycardia 0 [facility] Implant Date 03/24/2019 [facility] Comprehensive metabolic 2000 panelon 10-26-2022 Albumin [Mass/Vol] 4.0 g/dL 3.9 - 4.9 g/dL [facility] ALP [Catalytic activity/Vol] 103 U/L 38 - 113 U/L [facility] ALT [Catalytic activity/Vol] 15 U/L 10 - 54 U/L [facility] Anion gap [Moles/Vol] 17 mmol/L 9 - 18 mmol/L [facility] AST [Catalytic activity/Vol] 26 U/L 14 - 40 U/L [facility] Bilirubin [Mass/Vol] 0.6 mg/dL 0.2 - 1.3 mg/dL [facility] Calcium [Mass/Vol] 10.2 mg/dL 8.5 - 10. 2 mg/dL [facility] Chloride [Moles/Vol] 103 mmol/L 97 - 105 mmol/L [facility] CO2 [Moles/Vol] 20 mmol/L Low 22 - 30 mmol/L [facility] Creatinine [Mass/Vol] 1.89 mg/dL High 0.73 - 1.22 mg/dL [facility] Estimated Glomerular Filtration Rate 35 mL/min/1.73m Low >=60 mL/min/1.73 m [facility] Glucose [Mass/Vol] 103 mg/dL High 74 - 99 mg/dL [facility] Potassium [Moles/Vol] 5.5 mmol/L High 3.7 - 5.1 mmol/L [facility] Protein [Mass/Vol] 7.7 g/dL 6.3 - 8.0 g/dL [facility] Sodium [Moles/Vol] 140 mmol/L 136 - 144 mmol/L [facility] Urea nitrogen [Mass/Vol] 40 mg/dL High 9 - 24 mg/dL [facility] NT PRO BNPon 10-26-2022 Natriuretic peptide.B prohormone N-Terminal [Mass/Vol] 5553 pg/mL High <450 pg/mL [facility] CBC W Auto Differential pane l (Bld)on 10-25-2022 Basophils (Bld) [#/Vol] <0.11 k/uL [facility] Basophils/100 WBC (Bld) 0.3 % [facility] Differential cell count method Nom (Bld) Auto [facility] Eosinophils (Bld) [#/Vol] 0.20 10*3/uL <0.46 k/uL [facility] Eosinophils/100 WBC (Bld) 2.7 % [facility] Erythrocyte distribution width (RBC) [Ratio] 13.6 % 11.5 - 15.0 % [facility] Hematocrit (Bld) [Volume fraction] 47.3 % 39.0 - 51.0 % [facility] Hemoglobin (Bld) [Mass/Vol] 14.6 g/dL 13.0 - 17.0 g/dL [facility] Immature granulocytes (Bld) [#/Vol] <0.10 k/uL [facility] Immature granulocytes/100 WBC (Bld) 0.3 % [facility] Lymphocytes (Bld) [#/Vol] 1.40 10*3/uL 1.00 - 4.00 k/uL [facility] Lymphocytes/100 WBC (Bld) 19.0 % [facility] MCH (RBC) [Entitic mass] 29.1 pg 26.0 - 34.0 pg [facility] MCHC (RBC) [Mass/Vol] 30.9 g/dL 30.5 - 36.0 g/dL [facility] MCV (RBC) [Entitic vol] 94.2 fL 80.0 - 100.0 fL [facility] Monocytes (Bld) [#/Vol] 0.65 10*3/uL <0.87 k/uL [facility] Monocytes/100 WBC (Bld) 8.8 % [facility] Neutrophils (Bld) [#/Vol] 5.06 10*3/uL 1.45 - 7.50 k/uL [facility] Neutrophils/100 WBC (Bld) 68.9 % [facility] Nucleated RBC (Bld) [#/Vol] <0.01 k/uL [facility] Nucleated RBC/100 WBC (Bld) [Ratio] 0.0 /100 WBC [facility] Platelet mean volume (Bld) [Entitic vol] 10.7 fL 9.0 - 12.7 fL [facility] Platelets (Bld) [#/Vol] 159 10*3/uL 150 - 400 k/uL [facility] RBC (Bld) [#/Vol] 5.02 10*6/uL 4.20 - 6.0 0 m/uL [facility] WBC (Bld) [#/Vol] 7.35 10*3/uL 3.70 - 11.00 k/uL [facility] GLUCOSE, BLOOD (POC)on 10-25 Glucose [Mass/Vol] 94 mg/dL 74 - 99 mg/dL [facility] Glucose [Mass/Vol] 101 mg/dL Abnormal 74 - 99 mg/dL [facility] No Panel Informationon 10-25 [facility] BNPon 08-30-2022 Natriuretic peptide B (Bld) [Mass/Vol] 5149.0 pg/mL Critically high <=1,800.0 [facility] Comment on above: Performed By: #### B MP, BNP #### [facility] [address] [place] [address] Dr. Silva Burnett PROF CHEM 8 (BAS METB)on Anion gap [Moles/Vol] 9.3 mmol/L Normal [facility] Comment on above: Performed By: #### B MP, BNP #### [facility] [address] [place] [address] Dr. Silva Burnett Calcium [Mass/Vol] 9.5 mg/dL Normal 8.5-10.1 [facility] Comment on above: Performed By: #### B MP, BNP #### [facility] [address] [place] [address] Dr. Silva Burnett Chloride [Moles/Vol] 103 mmol/L Normal 98-107 [facility] Comment on above: Performed By: #### B MP, BNP #### [facility] [address] [place] [address] Dr. Silva Burnett CO2 [Moles/Vol] 30.2 mmol/L Normal 21.0-32.[address] [facility] Comment on above: Performed By: #### B MP, BNP #### [facility] [address] [place] [address] Dr. Silva Burnett Creatinine [Mass/Vol] 1.86 mg/dL Critically high 0.70-1.30 [facility] Comment on above: Performed By: #### B MP, BNP #### [facility] [address] [place] [address] Dr. Silva Burnett EGFR-AF [place] 43 mL/min/1.73m2 Critically low >=60 [facility] Comment on above: Performed By: #### B MP, BNP #### [facility] [address] [place] [address] Dr. Silva Burnett EGFR-NON AF [place] 35 mL/min/1.73m2 Critically low >=60 [facility] Comment on above: Performed By: #### B MP, BNP #### [facility] [address] [place] [address] Dr. Silva Burnett Glucose [Mass/Vol] 108 mg/dL Critically high 74-106 T [facility] Comment on above: Performed By: #### B MP, BNP #### [facility] [address] [place] [address] Dr. Silva Burnett Potassium [Moles/Vol] 4.5 mmol/L Normal 3.5-5.1 [facility] Comment on above: Performed By: #### B MP, BNP #### [facility] [address] [place] [address] Dr. Silva Burnett Sodium [Moles/Vol] 138 mmol/L Normal 136-145 [facility] Comment on above: Performed By: #### B MP, BNP #### [facility] [address] [place] [address] Dr. Silva Burnett Urea nitrogen [Mass/Vol] 27.0 mg/dL Critically high 7.0-18.0 [facility] Comment on above: Performed By: #### B MP, BNP #### [facility] [address] [place] [address] Dr. Silva Burnett Urea nitrogen/Creatinine [Mass ratio] 14.5 mg/mg Normal [facility] Comment on above: Performed By: #### B MP, BNP #### [facility] [address] [place] [address] Dr. Silva Burnett ICD REMOTE CHECKon 11-22-202 2 AV Delay Adaptive Paced Minimum (ms) 200 ms [facility] AV Delay Adaptive Sensed Minimum (ms) 170 ms [facility] Bj RA Pacing Amplitude (volts) 2 V [facility] Bj RA Pacing Polarity BI [facility] Bj RA Pacing Pulse Width (ms) 0.5 ms [facility] Bj RA Sensing Amplitude (mvolts) 0.25 mV [facility] Bj RA Sensing Polarity BI [facility] Bj RV Pacing Amplitude (volts) 2 V [facility] Bj RV Pacing Polarity BI [facility] Bj RV Pacing Pulse Width (ms) 0.5 ms [facility] Bj RV Sensing Amplitude (mvolts) 0.3 mV [facility] Bj RV Sensing Polarity BI [facility] Detection Configuration (Vent) 2 - Zone [facility] FastVT_Detection Interval 250 ms [facility] FastVT_Therapy Configuration 1 ATP(s) + 8 Shock(s) [facility] ICD FastVT DetectionStatus ENABLED [facility] ICD-AMS EPISODES 170 {beats}/min [facility] ICD-ATP Episodes (Vent) 0 [facility] ICD-ATRIALFIBRILLAT ION 0 [facility] ICD-ATRIALTACHYCARD IA 1 [facility] ICD-Device Mfg BSX [facility] ICD-Fast Ventricular Tachycardia 1 [facility] ICD-LEADIMPEDANCEAT RIAL 743 ohm [facility] ICD-Percent Pacing (Atrial) 0 % [facility] ICD-Percent Pacing (Vent) 0 % [facility] ICD-Shocks Aborted (Vent) 0 [facility] [id number] D 0 [facility] ICD-SHOCKSABORTED 0 [facility] ICD-SHOCKSDELIVERED VENTRICULAR 0 [facility] ICD-Ventricular Fibrillation 0 [facility] Lead Impedance (RV) 431 ohm [facility] Lead Impedance High Voltage 48 ohm [facility] Lead1 Mfg BSX [facility] Lead2 Mfg BSX [facility] Location RV [facility] Location RA [facility] Lower Rate (bpm) 50 {beats}/min [facility] Max Sensor Rate (bpm) 130 {beats}/min [facility] MDT_PROG_TACHY_ZONE _DETECTIONS_STATUS ENABLED [facility] Model D142 INOGEN [facility] Model 0675 Amasa 4-Front [facility] Model 7741 Ingevity MRI [facility] Pacing Mode DDDR [facility] Serial Number [id number] [facility] Serial Number [id number] [facility] Serial Number [id number] [facility] Test Charge Energy 23 J [facility] Test Charge Time 10.1 s [facility] Therapy Status (Vent) Enabled [facility] Thresh RA Capture Amplitude (volts) 0.6 V [facility] Thresh RA Capture Duration (ms) 0.5 ms [facility] Thresh RV Capture Amplitude (VOLTS) 0.5 V [facility] Thresh RV Capture Duration (MS) 0.5 ms [facility] Tracking Rate (bpm) 130 {beats}/min [facility] VF Zone Detection Interval 250 ms [facility] VF Zone Therapy Configuration 1 ATP(s) + 8 Shock(s) [facility] No Panel Informationon 08-07 BLANK _ [facility] ICD-ATRIALTACHYCARD IA 0 [facility] ICD-Fast Ventricular Tachycardia 0 [facility] Implant Date 03/24/2019 [facility] BNPon 07-23-2022 Natriuretic peptide B (Bld) [Mass/Vol] 5638.0 pg/mL Critically high <=1,800.0 [facility] Comment on above: Performed By: #### B MP, BNP, LIPID #### [facility] [address] [address] [address] Silva Burnett LIPID PROFILEon 07-23-2022 CHOL-HDL RATIO NORM SEE BELOW Normal [facility] Comment on above: Result Comment: 3.3 - 4.4 LOW RISK 4.4 - 7.1 AVERAGE RISK 7.1 - 11.0 MODERATE RISK >11.0 HIGH RISK Performed By: #### B MP, BNP, LIPID #### [facility] [address] [address] [address] Silva Burnett Cholesterol [Mass/Vol] 126 mg/dL Normal <=200 [facility] Comment on above: Performed By: #### B MP, BNP, LIPID #### [facility] [address] [address] [address] Silva Burnett Cholesterol in HDL [Mass/Vol] 51 mg/dL Normal 40-60 [facility] Comment on above: Performed By: #### B MP, BNP, LIPID #### [facility] [address] [address] [address] Silva Burnett Cholesterol in LDL [Mass/Vol] 61.4 mg/dL Normal [facility] Comment on above: Performed By: #### B MP, BNP, LIPID #### [facility] [address] [place] [address] Dr. Silva Burnett Cholesterol.total/C holesterol in HDL [Mass ratio] 2.5 {ratio} Normal [facility] Comment on above: Performed By: #### B MP, BNP, LIPID #### [facility] [address] [place] [address] Dr. Silva Burnett HDL NORMAL > or = 60 mg/dl - LO W CARDIOVASCULAR RISK <40 mg/dl - HIGH CARDIOVASCULAR RISK Normal [facility] Comment on above: Performed By: #### B MP, BNP, LIPID #### [facility] [address] [place] [address] Dr. Silva Burnett LDL CALC NORMAL SEE BELOW Normal [facility] Comment on above: Result Comment: <100 mg/dl OPTIMAL 100 - 129 mg/dl NEAR OR ABOVE OPTIMAL 130 - 159 mg/dl BORDERLINE HIGH 160 - 189 mg/dl HIGH >190 mg/dl VERY HIGH Performed By: #### B MP, BNP, LIPID #### [facility] [address] [place] [address] Dr. Silva Burnett Triglyceride [Mass/Vol] 68 mg/dL Normal <=150 [facility] Comment on above: Performed By: #### B MP, BNP, LIPID #### [facility] [address] [place] [address] Dr. Silva Burnett VLDL CALC 13.6 mg/dL Normal [facility] Comment on above: Performed By: #### B MP, BNP, LIPID #### [facility] [address] [address] [address] Silva Burnett PROF CHEM 8 (BAS METB)on Anion gap [Moles/Vol] 10.2 mmol/L Normal [facility] Comment on above: Performed By: #### B MP, BNP, LIPID #### [facility] [address] [place] [address] Dr. Silva Burnett Calcium [Mass/Vol] 9.3 mg/dL Normal 8.5-10.1 [facility] Comment on above: Performed By: #### B MP, BNP, LIPID #### [facility] [address] [place] [address] Dr. Silva Burnett Chloride [Moles/Vol] 102 mmol/L Normal 98-107 [facility] Comment on above: Performed By: #### B MP, BNP, LIPID #### [facility] [address] [place] [address] Dr. Silva Burnett CO2 [Moles/Vol] 29.7 mmol/L Normal 21.0-32.[address] [facility] Comment on above: Performed By: #### B MP, BNP, LIPID #### [facility] [address] [place] [address] Dr. Silva Burnett Creatinine [Mass/Vol] 1.68 mg/dL Critically high 0.70-1.30 [facility] Comment on above: Performed By: #### B MP, BNP, LIPID #### [facility] [address] [place] [address] Dr. Silva Burnett EGFR-AF GREENLANDIC 48 mL/min/1.73m2 Critically low >=60 [facility] Comment on above: Performed By: #### B MP, BNP, LIPID #### [facility] [address] [place] [address] Dr. Silva Burnett EGFR-NON AF GREEN[place]IC 40 mL/min/1.73m2 Critically low >=60 [facility] Comment on above: Performed By: #### B MP, BNP, LIPID #### [facility] [address] [place] [address] Dr. Silva Burnett Glucose [Mass/Vol] 97 mg/dL Normal 74-106 [facility] Comment on above: Performed By: #### B MP, BNP, LIPID #### [facility] [address] [place] [address] Dr. Silva Burnett Potassium [Moles/Vol] 3.9 mmol/L Normal 3.5-5.1 [facility] Comment on above: Performed By: #### B MP, BNP, LIPID #### [facility] [address] [place] [address] Dr. Silva Burnett Sodium [Moles/Vol] 138 mmol/L Normal 136-145 [facility] Comment on above: Performed By: #### B MP, BNP, LIPID #### [facility] [address] [place] [address] Dr. Silva Burnett Urea nitrogen [Mass/Vol] 28.0 mg/dL Critically high 7.0-18.0 [facility] Comment on above: Performed By: #### B MP, BNP, LIPID #### [facility] [address] [place] [address] Dr. Silva Burnett Urea nitrogen/Creatinine [Mass ratio] 16.7 mg/mg Normal [facility] Comment on above: Performed By: #### B MP, BNP, LIPID #### [facility] [address] [place] [address] Dr. Silva Burnett FREE T3on 07-18-2022 FREE T3 3.48 pg/mlL Normal 2.18-3.98 [facility] Comment on above: Performed By: #### V ITAD #### [facility] [address] [place] [address] Dr. Silva Burnett FREE T4on 07-18-2022 Free T4 [Mass/Vol] 0.76 ng/dL Normal 0.76-1.46 [facility] Comment on above: Performed By: #### F T4 #### [facility] [address] [place] [address] Dr. Silva Burnett TSHon 07-18-2022 TSH 0.074 uIU/mL Critically low 0.358-3.740 [facility] Comment on above: Performed By: #### V ITAD #### [facility] [address] [place] [address] Dr. Silva Burnett TESTOSTERONE, FREE,DIRECT, T OTALon 07-02-2022 Free Testosterone(Direct ) 1.2 pg/mL Critically low 6.6-18.1 [facility] Comment on above: Result Comment: Perf ormed at: BN Performed By: #### B MP, BNP #### [facility] [address] [place] [address] Dr. Silva Burnett Testosterone [Mass/Vol] 103 ng/dL Critically low 264-916 [facility] Comment on above: Result Comment: Adul t male reference interval is based on a population of healthy nonobese males (BMI <30) between 19 and 39 years old. Keisha et.al. JCEM 2017,102;9974-3788. PMID: [id number]. Performed at: CB Performed By: #### B MP, BNP #### [facility] [address] [place] [address] Dr. Silva Burnett CORTISOLon 06-29-2022 Cortisol 9.8 ug/dL Normal [facility] Comment on above: Result Comment: Dale isol AM 6.2 - 19.4 Cortisol PM 2.3 - 11.9 Performed By: #### B MP, BNP #### [facility] [address] [place] [address] Dr. Silva Burnett BNPon 06-27-2022 Natriuretic peptide B (Bld) [Mass/Vol] 5384.0 pg/mL Critically high <=1,800.0 [facility] Comment on above: Performed By: #### B MP, BNP #### [facility] [address] [place] [address] Dr. Silva Burnett CBC AUTO DIFFon 06-27-2022 BASO # 0.0 103/ul Normal 0.0-0.1 [facility] Comment on above: Performed By: #### B MP, BNP #### [facility] [address] [place] [address] Dr. Silva Burnett Basophils/100 WBC (Bld) 0.6 % Normal 0.2-2.0 [facility] Comment on above: Performed By: #### B MP, BNP #### [facility] [address] [place] [address] Dr. Silva Burnett EO # 0.4 103/ul Normal 0.0-0.7 [facility] Comment on above: Performed By: #### B MP, BNP #### [facility] [address] [place] [address] Dr. Silva Burnett Eosinophils/100 WBC (Bld) 8.0 % Critically high 0.9-7.0 [facility] Comment on above: Performed By: #### B MP, BNP #### [facility] [address] [place] [address] Dr. Silva Burnett Erythrocyte distribution width (RBC) [Ratio] 15.3 % Critically high 11.0-15.0 [facility] Comment on above: Performed By: #### B MP, BNP #### [facility] [address] [place] [address] Dr. Silva Burnett Hematocrit (Bld) [Volume fraction] 41.0 % Critically low 42.0-54.0 [facility] Comment on above: Performed By: #### B MP, BNP #### [facility] [address] [place] [address] Dr. Silva Burnett Hemoglobin (Bld) [Mass/Vol] 12.8 g/dL Critically low 14.0-18.0 [facility] Comment on above: Performed By: #### B MP, BNP #### [facility] [address] [place] [address] Dr. Silva Burnett IG # 0.02 10e3/ul Normal 0.00-0.03 [facility] Comment on above: Performed By: #### B MP, BNP #### [facility] [address] [place] [address] Dr. Silva Burnett IG % 0.4 % Normal 0.0-0.5 [facility] Comment on above: Performed By: #### B MP, BNP #### [facility] [address] [place] [address] Dr. Silva Burnett LYMPH # 1.3 103/ul Normal 1.2-3.8 [facility] Comment on above: Performed By: #### B MP, BNP #### [facility] [address] [place] [address] Dr. Silva Burnett Lymphocytes/100 WBC (Bld) 25.8 % Normal 20.5-60.0 [facility] Comment on above: Performed By: #### B MP, BNP #### [facility] [address] [place] [address] Dr. Silva Burnett MANUAL DIFF REQ NO Normal [facility] Comment on above: Performed By: #### B MP, BNP #### [facility] [address] [place] [address] Dr. Silva Burnett MCH (RBC) [Entitic mass] 28.9 pg Normal 25.9-34.0 [facility] Comment on above: Performed By: #### B MP, BNP #### [facility] [address] [place] [address] Dr. Silva Burnett MCHC (RBC) [Mass/Vol] 31.2 g/dL Normal 29.9-35.2 [facility] Comment on above: Performed By: #### B MP, BNP #### [facility] [address] [place] [address] Dr. Silva Burnett MCV (RBC) [Entitic vol] 92.6 fL Normal 80.0-94.0 [facility] Comment on above: Performed By: #### B MP, BNP #### [facility] [address] [place] [address] Dr. Silva Burnett MONO # 0.6 103/ul Normal 0.3-0.8 [facility] Comment on above: Performed By: #### B MP, BNP #### [facility] [address] [place] [address] Dr. Silva Burnett Monocytes/100 WBC (Bld) 11.1 % Normal 1.7-12.0 [facility] Comment on above: Performed By: #### B MP, BNP #### [facility] [address] [place] [address] Dr. Silva Burnett NEUT # 2.8 103/ul Normal 1.4-6.5 [facility] Comment on above: Performed By: #### B MP, BNP #### [facility] [address] [place] [address] Dr. Silva Burnett Neutrophils/100 WBC (Bld) 54.1 % Normal 43.0-75.0 [facility] Comment on above: Performed By: #### B MP, BNP #### [facility] [address] [address] [address] Silva Burnett Platelet mean volume (Bld) [Entitic vol] 10.0 fL Normal 9.5-13.5 [facility] Comment on above: Performed By: #### B MP, BNP #### [facility] [address] [address] [address] Silva Burnett PLT 144 103/ul Critically low 150-450 [facility] Comment on above: Performed By: #### B MP, BNP #### [facility] [address] [address] [address] Silva Burnett RBC 4.43 106/ul Critically low 4.70-6.10 [facility] Comment on above: Performed By: #### B MP, BNP #### [facility] [address] [place] [address] Dr. Silva Burnett WBC 5.1 103/ul Normal 4.0-11.0 [facility] Comment on above: Performed By: #### B MP, BNP #### [facility] [address] [place] [address] Dr. Silva Burnett PROF CHEM 8 (BAS METB)on Anion gap [Moles/Vol] 10.2 mmol/L Normal [facility] Comment on above: Performed By: #### B MP, BNP #### [facility] [address] [place] [address] Dr. Silva Burnett Calcium [Mass/Vol] 8.9 mg/dL Normal 8.5-10.1 [facility] Comment on above: Performed By: #### B MP, BNP #### [facility] [address] [address] [address] Silva Burnett Chloride [Moles/Vol] 104 mmol/L Normal 98-107 [facility] Comment on above: Performed By: #### B MP, BNP #### [facility] [address] [place] [address] Dr. Silva Burnett CO2 [Moles/Vol] 27.1 mmol/L Normal 21.0-32.[address] [facility] Comment on above: Performed By: #### B MP, BNP #### [facility] [address] [address] [address] Sliva Burnett Creatinine [Mass/Vol] 1.61 mg/dL Critically high 0.70-1.30 [facility] Comment on above: Performed By: #### B MP, BNP #### [facility] [address] [address] [address] Silva Burnett EGFR-AF GRE[place]IC 50 mL/min/1.73m2 Critically low >=60 [facility] Comment on above: Performed By: #### B MP, BNP #### [facility] [address] [place] [address] Dr. Silva Burnett EGFR-NON AF GRE[place] 41 mL/min/1.73m2 Critically low >=60 [facility] Comment on above: Performed By: #### B MP, BNP #### [facility] [address] [place] [address] Dr. Silva Burnett Glucose [Mass/Vol] 89 mg/dL Normal 74-106 [facility] Comment on above: Performed By: #### B MP, BNP #### [facility] [address] [place] [address] Dr. Silva Burnett Potassium [Moles/Vol] 4.3 mmol/L Normal 3.5-5.1 [facility] Comment on above: Performed By: #### B MP, BNP #### [facility] [address] [place] [address] Dr. Silva Burnett Sodium [Moles/Vol] 137 mmol/L Normal 136-145 [facility] Comment on above: Performed By: #### B MP, BNP #### [facility] [address] [place] [address] Dr. Silva Burnett Urea nitrogen [Mass/Vol] 28.0 mg/dL Critically high 7.0-18.0 [facility] Comment on above: Performed By: #### B MP, BNP #### [facility] [address] [place] [address] Dr. Silva Burnett Urea nitrogen/Creatinine [Mass ratio] 17.4 mg/mg Normal [facility] Comment on above: Performed By: #### B MP, BNP #### [facility] [address] [place] [address] Dr. Silva Burnett VITAMIN D 25 OHon 06-27-2022 VIT D 25-OH 85.2 ng/mL Normal [facility] Comment on above: Performed By: #### V ITAD #### [facility] [address] [place] [address] Dr. Silva Burnett VIT D RANGES SEE BELOW Normal [facility] Comment on above: Result Comment: <20 ng/mL Vit D deficient 20 - <30 ng/mL Vit D insufficient 30 - 100 ng/mL Vit D sufficient >100 ng/mL Potential Toxicity Performed By: #### V ITAD #### [facility] [address] [place] [address] Dr. Silva Burnett CREATININEon 06-14-2022 Creatinine [Mass/Vol] 1.71 mg/dL Critically high 0.70-1.30 [facility] Comment on above: Performed By: #### B MP, BNP #### [facility] [address] [place] [address] Dr. Silva Burnett EGFR-AF GRE[place] 47 mL/min/1.73m2 Critically low >=60 [facility] Comment on above: Performed By: #### B MP, BNP #### [facility] [address] [place] [address] Dr. Silva Burnett EGFR-NON AF [place] 39 mL/min/1.73m2 Critically low >=60 [facility] Comment on above: Performed By: #### B MP, BNP #### [facility] [address] [place] [address] Dr. Silva Burnett CTA NECK WO W [...] AYANA FERNANDEZ Date: 2022-06-14 16:39 Normal [facility] BASIC METABOLIC PANELon 09-0 Calcium [Mass/Vol] 8.8 mg/dL Normal 8.6-10.3 [facility] Comment on above: Order Comment: No: D o not add to previous draw Performed By: #### 2 5508, 55364, 28783, 62117, 11574, 85767 #### [facility] [address] [place] [address], [facility] Chloride [Moles/Vol] 103 mmol/L Normal 98-107 [facility] Comment on above: Order Comment: No: D o not add to previous draw Performed By: #### 2 5508, 11466, 64109, 58569, 95286, 49475 #### [facility] [address] [place] [address], [place] CO2 [Moles/Vol] 28 mmol/L Normal 21-31 [facility] Comment on above: Order Comment: No: D o not add to previous draw Performed By: #### 2 5508, 27831, 12929, 49891, 58113, 11607 #### [facility] [address] [place] [address], [facility] Creatinine [Mass/Vol] 1.47 mg/dL High 0.70-1.30 [facility] Comment on above: Order Comment: No: D o not add to previous draw Performed By: #### 2 5508, 46420, 28923, 44276, 30356, 66343 #### [facility] [address] [place] [address], [facility] EGFR 48 ml/min/1.73sq m Abnormal >60 [facility] Comment on above: Order Comment: No: D o not add to previous draw Result Comment: [facility]'s estimated glomerular filtration rate (eGFR) [...] of individuals. Performed By: #### 2 5508, 76450, 64000, 22709, 95522, 71781 #### [facility] [address] [place] [address], [facility] Glucose [Mass/Vol] 110 mg/dL High 70-100 [facility] Comment on above: Order Comment: No: D o not add to previous draw Performed By: #### 2 5508, 51678, 39382, 29268, 96681, 91516 #### [facility] [address] [place] [address], [facility] Potassium [Moles/Vol] 4.3 mmol/L Normal 3.5-5.1 [facility] Comment on above: Order Comment: No: D o not add to previous draw Performed By: #### 2 5508, 39215, 88863, 86822, 81715, 63719 #### [facility] [address] [place] [address], [facility] Sodium [Moles/Vol] 136 mmol/L Normal 136-145 [facility] Comment on above: Order Comment: No: D o not add to previous draw Performed By: #### 2 5508, 29322, 99670, 88722, 22832, 56595 #### [facility] [address] [place] [address], [facility] Urea nitrogen [Mass/Vol] 35 mg/dL High 7-25 [facility] Comment on above: Order Comment: No: D o not add to previous draw Performed By: #### 2 5508, 51114, 85917, 32298, 58937, 63116 #### [facility] [address] [place] [address], [facility] MAGNESIUM BLOODon 05-23-2022 Magnesium [Mass/Vol] 2.2 mg/dL Normal 1.9-2.7 [facility] Comment on above: Order Comment: No: D o not add to previous draw Performed By: #### 2 5508, 28025, 33162, 00875, 55536, 95365 #### [facility] [address] [place] [address], [facility] APTTon 05-22-2022 aPTT Coag (Bld) [Time] 28.0 s Normal 25.0-35.0 [facility] Comment on above: Order Comment: [...] THIS PURPOSE. Performed By: #### 2 5508, 06013, 47189, 08951, 89204, 02861 #### [facility] [address] [place] [address], [facility] BASIC METABOLIC PANELon 09-0 -2021 Calcium [Mass/Vol] 9.0 mg/dL Normal 8.6-10.3 [facility] Comment on above: Order Comment: No: D o not add to previous draw Performed By: #### 2 5508, 26323, 63567, 75731, 55321, 88773 #### [facility] [address] [place] [address], [facility] Chloride [Moles/Vol] 101 mmol/L Normal 98-107 [facility] Comment on above: Order Comment: No: D o not add to previous draw Performed By: #### 2 5508, 22394, 80602, 30949, 96975, 39795 #### [facility] [address] [place] [address], [place] CO2 [Moles/Vol] 29 mmol/L Normal 21-31 [facility] Comment on above: Order Comment: No: D o not add to previous draw Performed By: #### 2 5508, 94408, 58205, 98845, 73632, 87406 #### [facility] [address] [place] [address], [facility] Creatinine [Mass/Vol] 1.67 mg/dL High 0.70-1.30 [facility] Comment on above: Order Comment: No: D o not add to previous draw Performed By: #### 2 5508, 08478, 41108, 07502, 67089, 28294 #### [facility] [address] [place] [address], [place] EGFR 41 ml/min/1.73sq m Abnormal >60 [facility] Comment on above: Order Comment: No: D o not add to previous draw Result Comment: [facility]'s estimated glomerular filtration rate (eGFR) [...] of individuals. Performed By: #### 2 5508, 48514, 41084, 28546, 39523, 91133 #### [facility] [address] [place] [address], [place] Glucose [Mass/Vol] 94 mg/dL Normal 70-100 [facility] Comment on above: Order Comment: No: D o not add to previous draw Performed By: #### 2 5508, 68295, 79514, 55602, 03204, 73328 #### [facility] [address] [place] [address], [place] Potassium [Moles/Vol] 4.8 mmol/L Normal 3.5-5.1 [facility] Comment on above: Order Comment: No: D o not add to previous draw Performed By: #### 2 5508, 22334, 23989, 80755, 53040, 57911 #### [facility] [address] [place] [address], [place] Sodium [Moles/Vol] 136 mmol/L Normal 136-145 [facility] Comment on above: Order Comment: No: D o not add to previous draw Performed By: #### 2 5508, 49034, 99164, 80337, 86450, 06719 #### [facility] [address] [place] [address], [place] Urea nitrogen [Mass/Vol] 39 mg/dL High 7-25 [facility] Comment on above: Order Comment: No: D o not add to previous draw Performed By: #### 2 5508, 92053, 37380, 98023, 62727, 19253 #### [facility] [address] [place] [address], [place] MAGNESIUM BLOODon 05-22-2022 Magnesium [Mass/Vol] 1.8 mg/dL Low 1.9-2.7 [facility] Comment on above: Order Comment: No: D o not add to previous draw Performed By: #### 2 5508, 46191, 81343, 87315, 89986, 01489 #### [facility] [address] [place] [address], [facility] APTTon 05-21-2022 aPTT Coag (Bld) [Time] 30.8 s Normal 25.0-35.0 [facility] Comment on above: Order Comment: [...] THIS PURPOSE. Performed By: #### 2 5508, 63331, 59189, 94283, 06409, 59648 #### [facility] [address] BASIC METABOLIC PANELon Calcium [Mass/Vol] 8.8 mg/dL Normal 8.6-10.3 [facility] Comment on above: Order Comment: No: D o not add to previous draw Performed By: #### 2 5508, 16786, 25185, 54405, 78954, 85902 #### [facility] [address] [place] [address], [facility] Chloride [Moles/Vol] 103 mmol/L Normal 98-107 [facility] Comment on above: Order Comment: No: D o not add to previous draw Performed By: #### 2 5508, 94557, 38168, 80986, 61752, 78157 #### [facility] [address] [place] [address], [facility] CO2 [Moles/Vol] 26 mmol/L Normal 21-31 [facility] Comment on above: Order Comment: No: D o not add to previous draw Performed By: #### 2 5508, 14530, 91584, 30909, 58901, 52232 #### [facility] [address] [place] [address], [place] Creatinine [Mass/Vol] 1.47 mg/dL High 0.70-1.30 [facility] Comment on above: Order Comment: No: D o not add to previous draw Performed By: #### 2 5508, 08751, 40193, 12412, 28181, 25832 #### [facility] [address] [place] [address], [facility] EGFR 48 ml/min/1.73sq m Abnormal >60 [facility] Comment on above: Order Comment: No: D o not add to previous draw Result Comment: [facility]'s estimated glomerular filtration rate (eGFR) [...] of individuals. Performed By: #### 2 5508, 97466, 49289, 22722, 34919, 18917 #### [facility] [address] [place] [address], [place] Glucose [Mass/Vol] 88 mg/dL Normal 70-100 [facility] Comment on above: Order Comment: No: D o not add to previous draw Performed By: #### 2 5508, 81857, 21328, 34714, 54963, 19907 #### [facility] [address] [place] [address], [place] Potassium [Moles/Vol] 3.9 mmol/L Normal 3.5-5.1 [facility] Comment on above: Order Comment: No: D o not add to previous draw Performed By: #### 2 5508, 36747, 74801, 26432, 13644, 10052 #### [facility] [address] [place] [address], [place] Sodium [Moles/Vol] 137 mmol/L Normal 136-145 [facility] Comment on above: Order Comment: No: D o not add to previous draw Performed By: #### 2 5508, 47519, 96068, 48971, 30912, 24764 #### [facility] [address] [place] [address], [facility] Urea nitrogen [Mass/Vol] 45 mg/dL High 7-25 [facility] Comment on above: Order Comment: No: D o not add to previous draw Performed By: #### 2 5508, 50972, 87609, 94666, 72241, 89793 #### [facility] [address] [place] [address], [facility] CBC COMPLETE BLOOD COUNTon 05-21-2022 Erythrocyte distribution width (RBC) [Ratio] 14.4 % Normal 11.5-15.0 [facility] Comment on above: Order Comment: No: D o not add to previous draw Performed By: #### 2 5508, 81840, 59295, 45387, 59358, 40859 #### [facility] [address] [place] [address], [place] Hematocrit (Bld) [Volume fraction] 40.8 % Normal 39.0-50.0 [facility] Comment on above: Order Comment: No: D o not add to previous draw Performed By: #### 2 5508, 39965, 74383, 96721, 02196, 08693 #### [facility] [address] [place] [address], [place] Hemoglobin (Bld) [Mass/Vol] 13.3 g/dL Normal 13.0-17.0 [facility] Comment on above: Order Comment: No: D o not add to previous draw Performed By: #### 2 5508, 95179, 62775, 18974, 75887, 76827 #### [facility] [address] [place] [address], [facility] MCH (RBC) [Entitic mass] 28.4 pg Normal 27.0-33.0 [facility] Comment on above: Order Comment: No: D o not add to previous draw Performed By: #### 2 5508, 57372, 01535, 35690, 40478, 21490 #### [facility] [address] [place] [address], [facility] MCHC (RBC) [Mass/Vol] 32.6 g/dL Normal 32.0-35.0 [facility] Comment on above: Order Comment: No: D o not add to previous draw Performed By: #### 2 5508, 33486, 55772, 48322, 79768, 65000 #### [facility] [address] [place] [address], [facility] MCV (RBC) [Entitic vol] 87.0 fL Normal 82.0-98.0 [facility] Comment on above: Order Comment: No: D o not add to previous draw Performed By: #### 2 5508, 36078, 27412, 48653, 53217, 39718 #### [facility] [address] [place] [address], [facility] Nucleated RBC/100 WBC (Bld) [Ratio] 0 % Normal 0-0 [facility] Comment on above: Order Comment: No: D o not add to previous draw Performed By: #### 2 5508, 39702, 69679, 22206, 05542, 94413 #### [facility] [address] [place] [id number], [facility] PLAT CNT 157 10*3/uL Normal 150-400 [facility] Comment on above: Order Comment: No: D o not add to previous draw Performed By: #### 2 5508, 53483, 94002, 94524, 43054, 67146 #### [facility] [address] [place] [address], [facility] RBC (Bld) [#/Vol] 4.69 10*6/uL Normal 4.20-5.70 [facility] Comment on above: Order Comment: No: D o not add to previous draw Performed By: #### 2 5508, 35143, 84441, 50481, 45432, 91863 #### [facility] [address] [place] [address], [facility] WBC (Bld) [#/Vol] 6.19 10*3/uL Normal 4.00-10.60 [facility] Comment on above: Order Comment: No: D o not add to previous draw Performed By: #### 2 5508, 06534, 24483, 52487, 65488, 80629 #### [facility] [address] [place] [address], [facility] MAGNESIUM BLOODon 05-21-2022 Magnesium [Mass/Vol] 1.9 mg/dL Normal 1.9-2.7 [facility] Comment on above: Order Comment: No: D o not add to previous draw Performed By: #### 2 5508, 07702, 93212, 29948, 23630, 73293 #### [facility] [address] [place] [id number], [facility] APTTon 05-20-2022 aPTT Coag (Bld) [Time] 28.4 s Normal 25.0-35.0 [facility] Comment on above: Order Comment: [...] THIS PURPOSE. Performed By: #### 2 5508, 12989, 71893, 03091, 42522, 95467 #### [facility] [address] [place] [address], [facility] BASIC METABOLIC PANELon 09-0 4-2021 Calcium [Mass/Vol] 9.0 mg/dL Normal 8.6-10.3 [facility] Comment on above: Order Comment: No: D o not add to previous draw Performed By: #### 1 0070, 45716, 40930 #### [facility] [address] [place] [address], [facility] Chloride [Moles/Vol] 105 mmol/L Normal 98-107 [facility] Comment on above: Order Comment: No: D o not add to previous draw Performed By: #### 1 0070, 72538, 87518 #### [facility] [address] [place] [address], [facility] CO2 [Moles/Vol] 26 mmol/L Normal 21-31 [facility] Comment on above: Order Comment: No: D o not add to previous draw Performed By: #### 1 0070, 31717, 60507 #### [facility] [address] [place] [address], [facility] Creatinine [Mass/Vol] 1.42 mg/dL High 0.70-1.30 [facility] Comment on above: Order Comment: No: D o not add to previous draw Performed By: #### 1 0070, 46934, 22603 #### [facility] [address] [place] [address], [facility] EGFR 50 ml/min/1.73sq m Abnormal >60 [facility] Comment on above: Order Comment: No: D o not add to previous draw Result Comment: [facility]'s estimated glomerular filtration rate (eGFR) [...] of individuals. Performed By: #### 1 0070, 70694, 05546 #### [facility] [address] [place] [address], [facility] Glucose [Mass/Vol] 107 mg/dL High 70-100 [facility] Comment on above: Order Comment: No: D o not add to previous draw Performed By: #### 1 0070, 47753, 16498 #### [facility] [address] [place] [address], [facility] Potassium [Moles/Vol] 3.9 mmol/L Normal 3.5-5.1 [facility] Comment on above: Order Comment: No: D o not add to previous draw Performed By: #### 1 0070, 50079, 24492 #### [facility] [address] [place] [address], [facility] Sodium [Moles/Vol] 139 mmol/L Normal 136-145 [facility] Comment on above: Order Comment: No: D o not add to previous draw Performed By: #### 1 0070, 22892, 00210 #### [facility] [address] [place] [address], [facility] Urea nitrogen [Mass/Vol] 50 mg/dL High 7-25 [facility] Comment on above: Order Comment: No: D o not add to previous draw Performed By: #### 1 0070, 97970, 44312 #### [facility] [address] [place] [address], [place] CBC COMPLETE BLOOD COUNTon 0 05-20-2022 Erythrocyte distribution width (RBC) [Ratio] 14.3 % Normal 11.5-15.0 [facility] Comment on above: Order Comment: No: D o not add to previous draw Performed By: #### 2 5508, 33555, 91647, 82185, 30355, 18233 #### [facility] [address] [place] [id number], [facility] Hematocrit (Bld) [Volume fraction] 44.1 % Normal 39.0-50.0 [facility] Comment on above: Order Comment: No: D o not add to previous draw Performed By: #### 2 5508, 25630, 99168, 50989, 68503, 14233 #### [facility] [address] [place] [address], [facility] Hemoglobin (Bld) [Mass/Vol] 14.5 g/dL Normal 13.0-17.0 [facility] Comment on above: Order Comment: No: D o not add to previous draw Performed By: #### 2 5508, 24437, 78286, 70644, 04026, 15568 #### [facility] [address] [place] [address], [facility] IMM PLATELET FRAC 5.4 % Normal 0.8-6.3 [facility] Comment on above: Order Comment: No: D o not add to previous draw Performed By: #### 2 5508, 30351, 71278, 59144, 93674, 12695 #### [facility] [address] [place] [address], [facility] MCH (RBC) [Entitic mass] 29.1 pg Normal 27.0-33.0 [facility] Comment on above: Order Comment: No: D o not add to previous draw Performed By: #### 2 5508, 27314, 56223, 80162, 94732, 62279 #### [facility] [address] [place] [address], [place] MCHC (RBC) [Mass/Vol] 32.9 g/dL Normal 32.0-35.0 [facility] Comment on above: Order Comment: No: D o not add to previous draw Performed By: #### 2 5508, 92819, 08190, 43950, 61060, 72316 #### [facility] [address] [place] [address], [facility] MCV (RBC) [Entitic vol] 88.6 fL Normal 82.0-98.0 [facility] Comment on above: Order Comment: No: D o not add to previous draw Performed By: #### 2 5508, 61864, 91456, 36375, 58973, 47769 #### [facility] [address] [place] [address], [facility] Nucleated RBC/100 WBC (Bld) [Ratio] 0 % Normal 0-0 [facility] Comment on above: Order Comment: No: D o not add to previous draw Performed By: #### 2 5508, 11079, 91053, 38556, 81499, 73543 #### [facility] [address] [place] [address], [facility] PLAT CNT 138 10*3/uL Low 150-400 [facility] Comment on above: Order Comment: No: D o not add to previous draw Performed By: #### 2 5508, 75792, 84095, 75984, 93353, 29957 #### [facility] [address] [place] [address], [facility] RBC (Bld) [#/Vol] 4.98 10*6/uL Normal 4.20-5.70 [facility] Comment on above: Order Comment: No: D o not add to previous draw Performed By: #### 2 5508, 06054, 50435, 99439, 11208, 13550 #### [facility] [address] [place] [address], [facility] WBC (Bld) [#/Vol] 5.80 10*3/uL Normal 4.00-10.60 [facility] Comment on above: Order Comment: No: D o not add to previous draw Performed By: #### 2 5508, 88185, 75352, 45167, 31484, 39359 #### [facility] [address] [place] [address], [facility] MAGNESIUM BLOODon 05-20-2022 Magnesium [Mass/Vol] 2.0 mg/dL Normal 1.9-2.7 [facility] Comment on above: Order Comment: No: D o not add to previous draw Performed By: #### 1 0070, 21039, 99777 #### [facility] [address] [place] [address], [facility] PHOSPHORUS BLOODon Phosphate [Mass/Vol] 3.5 mg/dL Normal 2.5-5.0 [facility] Comment on above: Order Comment: No: D o not add to previous draw Performed By: #### 1 0070, 02010, 91103 #### [facility] [address] [place] [address], [facility] APTTon 05-19-2022 aPTT Coag (Bld) [Time] 30.3 s Normal 25.0-35.0 [facility] Comment on above: Order Comment: [...] THIS PURPOSE. Performed By: #### 2 5508, 60016, 36620, 28830, 89186, 29450 #### [facility] [address] [place] [id number], [facility] BASIC METABOLIC PANELon Calcium [Mass/Vol] 8.5 mg/dL Low 8.6-10.3 [facility] Comment on above: Order Comment: No: D o not add to previous draw Performed By: #### 2 5508, 86467, 03347, 17969, 15001, 84242 #### [facility] [address] [place] [address], [facility] Chloride [Moles/Vol] 104 mmol/L Normal 98-107 [facility] Comment on above: Order Comment: No: D o not add to previous draw Performed By: #### 2 5508, 25125, 61486, 61791, 17211, 06282 #### [facility] [address] [place] [address], [facility] CO2 [Moles/Vol] 24 mmol/L Normal 21-31 [facility] Comment on above: Order Comment: No: D o not add to previous draw Performed By: #### 2 5508, 35102, 85172, 23707, 20273, 00735 #### [facility] [address] [place] [address], [facility] Creatinine [Mass/Vol] 2.02 mg/dL High 0.70-1.30 [facility] Comment on above: Order Comment: No: D o not add to previous draw Performed By: #### 2 5508, 81767, 59213, 88043, 77019, 58811 #### [facility] [address] [place] [address], [facility] EGFR 33 ml/min/1.73sq m Abnormal >60 [facility] Comment on above: Order Comment: No: D o not add to previous draw Result Comment: [facility]'s estimated glomerular filtration rate (eGFR) [...] of individuals. Performed By: #### 2 5508, 73063, 66540, 19546, 97341, 05099 #### [facility] [address] [place] [address], [facility] Glucose [Mass/Vol] 121 mg/dL High 70-100 [facility] Comment on above: Order Comment: No: D o not add to previous draw Performed By: #### 2 5508, 96073, 76338, 70086, 30393, 05486 #### [facility] [address] [place] [address], [facility] Potassium [Moles/Vol] 3.1 mmol/L Low 3.5-5.1 [facility] Comment on above: Order Comment: No: D o not add to previous draw Performed By: #### 2 5508, 02891, 46715, 93050, 65492, 28043 #### [facility] [address] [place] [address], [facility] Sodium [Moles/Vol] 137 mmol/L Normal 136-145 [facility] Comment on above: Order Comment: No: D o not add to previous draw Performed By: #### 2 5508, 01302, 99176, 30207, 72497, 09483 #### [facility] [address] [place] [address], [facility] Urea nitrogen [Mass/Vol] 61 mg/dL High 7-25 [facility] Comment on above: Order Comment: No: D o not add to previous draw Performed By: #### 2 5508, 77813, 06508, 62744, 62800, 46171 #### [facility] [address] [place] [address], [facility] CBC COMPLETE BLOOD COUNTon 0 05-19-2022 Erythrocyte distribution width (RBC) [Ratio] 14.2 % Normal 11.5-15.0 [facility] Comment on above: Order Comment: No: D o not add to previous draw Performed By: #### 2 5508, 51458, 99922, 50166, 16139, 38419 #### [facility] [address] [place] [address], [facility] Hematocrit (Bld) [Volume fraction] 41.1 % Normal 39.0-50.0 [facility] Comment on above: Order Comment: No: D o not add to previous draw Performed By: #### 2 5508, 12914, 66464, 55166, 93109, 82932 #### [facility] [address] [place] [address], [facility] Hemoglobin (Bld) [Mass/Vol] 13.8 g/dL Normal 13.0-17.0 [facility] Comment on above: Order Comment: No: D o not add to previous draw Performed By: #### 2 5508, 18762, 34583, 03795, 43403, 25659 #### [facility] [address] [place] [address], [facility] IMM PLATELET FRAC 4.8 % Normal 0.8-6.3 [facility] Comment on above: Order Comment: No: D o not add to previous draw Performed By: #### 2 5508, 32199, 17225, 33743, 41933, 21970 #### [facility] [address] [place] [address], [facility] MCH (RBC) [Entitic mass] 29.0 pg Normal 27.0-33.0 [facility] Comment on above: Order Comment: No: D o not add to previous draw Performed By: #### 2 5508, 77721, 22993, 36378, 52060, 87117 #### [facility] [address] [place] [id number], [facility] MCHC (RBC) [Mass/Vol] 33.6 g/dL Normal 32.0-35.0 [facility] Comment on above: Order Comment: No: D o not add to previous draw Performed By: #### 2 5508, 98533, 45272, 64246, 36280, 03134 #### [facility] [address] [place] [address], [facility] MCV (RBC) [Entitic vol] 86.3 fL Normal 82.0-98.0 [facility] Comment on above: Order Comment: No: D o not add to previous draw Performed By: #### 2 5508, 18891, 74397, 29590, 91357, 91294 #### [facility] [address] [place] [address], [facility] Nucleated RBC/100 WBC (Bld) [Ratio] 0 % Normal 0-0 [facility] Comment on above: Order Comment: No: D o not add to previous draw Performed By: #### 2 5508, 86043, 43687, 79626, 61591, 67878 #### [facility] [address] [place] [address], [facility] PLAT CNT 116 10*3/uL Low 150-400 [facility] Comment on above: Order Comment: No: D o not add to previous draw Performed By: #### 2 5508, 07205, 07599, 71315, 78636, 92936 #### [facility] [address] [place] [address], [facility] RBC (Bld) [#/Vol] 4.76 10*6/uL Normal 4.20-5.70 [facility] Comment on above: Order Comment: No: D o not add to previous draw Performed By: #### 2 5508, 62247, 01472, 68212, 14252, 24560 #### [facility] [address] [place] [id number], [facility] WBC (Bld) [#/Vol] 5.16 10*3/uL Normal 4.00-10.60 [facility] Comment on above: Order Comment: No: D o not add to previous draw Performed By: #### 2 5508, 21074, 65006, 71618, 92691, 91768 #### [facility] [address] [facility] [place], [place] [address] [place] [address] Cardiovascular Lab Reporton 05-19-2022 Cardiovascular Lab Report [facility] Patient Name: José Miguel Antonio [facility] Jonathan Juarez MR #: [id number] Department of Physician: Vic Nunes M.D. Division of Service Date: 05/18/2022 Cardiology Birthdate: 1940 Adult Cardiovascular Room #: [id number] [facility] [address] [facility] [place], [place] [address] Cardiovascular Laboratory Report FINAL IMPRESSIONS: 1. 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 2. Two bypass grafts patent; left internal mammary artery graft to the left anterior descending and saphenous vein graft to the obtuse marginal. 3. Robust [id number] collaterals. 4. Patent left subclavian artery. RECOMMENDATIONS: [...] internal mammary artery graft, placement of a 6-Dutch MynxGrip closure device. METHODS: After risks, benefits, and alternatives were explained, written informed consent was obtained. The patient was prepped and draped in usual sterile fashion over both groins. Using 1% lidocaine solution, local infiltration anesthesia was achieved. Using a modified Seldinger technique and a micropuncture kit and on the ultrasound guidance access to the right common femoral artery was obtained. A 6-Dutch 11 cm sheath was inserted without difficulty. [...] conclude the procedure. All catheters removed. A 6-Dutch MynxGrip closure device was deployed per protocol [...] Conley M.D. Date Trans: 05/19/2022 05:44 A/radha [id number] cc: Samm Thompson M.D. [address] [facility] [address] [facility] MAGNESIUM BLOODon 05-19-2022 Magnesium [Mass/Vol] 2.0 mg/dL Normal 1.9-2.7 [facility] Comment on above: Order Comment: No: D o not add to previous draw Performed By: #### 1 0070, 29567 #### [facility] [address] [place] [address], [facility] APTTon 05-18-2022 aPTT Coag (Bld) [Time] 80.7 s Critically high 25.0-35.0 [facility] Comment on above: Order Comment: No: D o not add to previous draw Result Comment: Resu lt checked and called. Accurately read back by BRANDI STOREY RN ON 05/18/2022 AT 14:48 Performed By: #### 2 5508, 03710, 85258, 72593, 24538, 43563 #### [facility] [address] [place] [address], [facility] aPTT Coag (Bld) [Time] 135.2 s Critically high 25.0-35.0 [facility] Comment on above: Order Comment: No: D o not add to previous draw Result Comment: Resu lt checked and called. Accurately read back by Pepe Connolly rn at 0447 Performed By: #### 2 5508, 39129, 88120, 39078, 48599, 37171 #### [facility] [address] [place] [address], [facility] CBC COMPLETE BLOOD COUNTon 0 05-18-2022 Erythrocyte distribution width (RBC) [Ratio] 14.1 % Normal 11.5-15.0 [facility] Comment on above: Order Comment: No: D o not add to previous draw Performed By: #### 2 5508, 22800, 86324, 71724, 90706, 84606 #### [facility] [address] [place] [address], [facility] Hematocrit (Bld) [Volume fraction] 43.0 % Normal 39.0-50.0 [facility] Comment on above: Order Comment: No: D o not add to previous draw Performed By: #### 2 5508, 46905, 80310, 05807, 29794, 84675 #### [facility] [address] [place] [address], [facility] Hemoglobin (Bld) [Mass/Vol] 14.3 g/dL Normal 13.0-17.0 [facility] Comment on above: Order Comment: No: D o not add to previous draw Performed By: #### 2 5508, 47095, 93605, 98759, 79028, 59787 #### [facility] [address] [place] [address], [facility] MCH (RBC) [Entitic mass] 28.8 pg Normal 27.0-33.0 [facility] Comment on above: Order Comment: No: D o not add to previous draw Performed By: #### 2 5508, 33238, 13630, 80633, 79568, 71157 #### [facility] [address] [place] [address], [facility] MCHC (RBC) [Mass/Vol] 33.3 g/dL Normal 32.0-35.0 [facility] Comment on above: Order Comment: No: D o not add to previous draw Performed By: #### 2 5508, 07187, 22731, 32010, 85441, 93832 #### [facility] [address] [place] [address], [facility] MCV (RBC) [Entitic vol] 86.5 fL Normal 82.0-98.0 [facility] Comment on above: Order Comment: No: D o not add to previous draw Performed By: #### 2 5508, 92569, 55271, 53557, 29562, 75457 #### [facility] [address] [place] [address], [facility] Nucleated RBC/100 WBC (Bld) [Ratio] 0 % Normal 0-0 [facility] Comment on above: Order Comment: No: D o not add to previous draw Performed By: #### 2 5508, 23420, 52083, 05713, 16576, 22305 #### [facility] [address] [place] [address], [facility] PLAT CNT 105 10*3/uL Low 150-400 [facility] Comment on above: Order Comment: No: D o not add to previous draw Performed By: #### 2 5508, 80344, 32332, 67880, 98085, 53650 #### [facility] [address] [place] [address], [facility] RBC (Bld) [#/Vol] 4.97 10*6/uL Normal 4.20-5.70 [facility] Comment on above: Order Comment: No: D o not add to previous draw Performed By: #### 2 5508, 34341, 22842, 34719, 92270, 17637 #### [facility] [address] [place] [address], [facility] WBC (Bld) [#/Vol] 5.28 10*3/uL Normal 4.00-10.60 [facility] Comment on above: Order Comment: No: D o not add to previous draw Performed By: #### 2 5508, 97742, 36747, 46369, 19356, 65174 #### [facility] [address] [place] [address], [facility] POC GLUCOSE LABon 05-18-2022 Glucose [Mass/Vol] 92 mg/dL Normal 70-100 [facility] Comment on above: Performed By: #### 2 5508, 67639, 82322, 30219, 60625, 90987 #### [facility] [address] [place] [address], [place] Glucose [Mass/Vol] 90 mg/dL Normal 70-100 [facility] Comment on above: Performed By: #### 2 5508, 90877, 52994, 46319, 27555, 51152 #### [facility] [address] [place] [address], [facility] PROTHROMBIN TIMEon 2 INR Coag (PPP) [Relative time] 1.41 {INR} High 0.91-1.16 [facility] Comment on above: Order Comment: [...] CHEST 1995;108:[id number]. Performed By: #### 2 5508, 08384, 35849, 63746, 34428, 11865 #### [facility] [address] [place] [address], [facility] PT Coag (PPP) [Time] 17.2 s High 12.3-14.8 [facility] Comment on above: Order Comment: No: D o not add to previous draw Result Comment: ALL RESULTS MUST BE INTERPRETED WITH RESPECT TO BLOOD DRAWING ARTIFACT OR DILUTION ERROR OF ANTICOAGULANT AT THE TIME OF SAMPLING. Performed By: #### 2 5508, 39940, 00629, 01682, 65203, 55783 #### [facility] [address] [place] [address], [facility] UFH HEPARIN ASSAYon 05-18-20 UNFRACTIONATED HEPARIN >1.00 Critically high 0.30-0.70 [facility] Comment on above: Result Comment: Resu lt checked and called. Accurately read back by BRANDI STOREY RN ON 05/18/2022 AT 14:48 Rivaroxaban and Apixaban will interfere with the anti Xa assay used to monitor UFH and LMWH. Performed By: #### 2 5508, 43401, 21090, 20433, 71906, 67062 #### [facility] [address] UNFRACTIONATED HEPARIN >1.00 Critically high 0.30-0.70 [facility] Comment on above: Result Comment: Resu lt checked and called. Accurately read back by Pepe Connolly rn at 0447 Rivaroxaban and Apixaban will interfere with the anti Xa assay used to monitor UFH and LMWH. Performed By: #### 2 5508, 23845, 05034, 09357, 07524, 18841 #### [facility] [address] *BLOOD CULTUREon 05-17-2022 *BLOOD CULTURE Clinical Report: (D) Specimen: BLOOD CULTURE Collected: 05/17/2022 02:15 Status: Final Last Updated: 05/22/2022 07:50 CULT RES (Final) No Growth Day 5 Normal [facility] Comment on above: Performed By: #### 2 5508, 26582, 95704, 40292, 11343, 45276 #### [facility] [address] [place] [address], [facility] APTTon 05-17-2022 aPTT Coag (Bld) [Time] 147.6 s Critically high 25.0-35.0 [facility] Comment on above: Order Comment: No: D o not add to previous draw Result Comment: Resu lt checked and called. Accurately read back by brandi storey rn on 05/17/2022 at 18:38 Performed By: #### 2 5508, 62641, 20433, 93653, 59972, 03402 #### [facility] [address] [place] [address], [facility] aPTT Coag (Bld) [Time] 103.1 s Critically high 25.0-35.0 [facility] Comment on above: Order Comment: No: D o not add to previous draw Result Comment: Resu lt checked and called. Accurately read back by WILBURARACELI STOREY @ 1000 Performed By: #### 2 5508, 30244, 58692, 72037, 32899, 01000 #### [facility] [address] [place] [address], [facility] aPTT Coag (Bld) [Time] 47.9 s High 25.0-35.0 [facility] Comment on above: Order Comment: [...] THIS PURPOSE. Performed By: #### 2 5508, 35863, 92467, 39738, 06639, 29097 #### [facility] [address] [place] [address], [facility] BNP (B-TYPE NATRIURETIC PEPT TWIN)on 05-17-2022 Natriuretic peptide B (Bld) [Mass/Vol] 584 pg/mL High 0-100 [facility] Comment on above: Order Comment: No: D o not add to previous draw Result Comment: Give n the appropriate clinical setting a BNP result of >100 pg/mL indicates congestive heart failure. Performed By: #### 2 5508, 65750, 06054, 10814, 78923, 19731 #### [facility] [address] [place] [id number], [facility] CBC W/DIFFon 05-17-2022 ABS IMM GRANS 0.0 10*3/uL Normal 0.0-0.2 [facility] Comment on above: Order Comment: No: D o not add to previous draw Performed By: #### 2 5508, 78420, 67204, 31886, 00465, 11440 #### [facility] [address] [place] [address], [facility] ABS NEUTROPHILS 3.6 10*3/uL Normal 1.6-7.6 [facility] Comment on above: Order Comment: No: D o not add to previous draw Performed By: #### 2 5508, 20049, 72655, 56344, 06378, 20862 #### [facility] [address] [place] [address], [facility] Basophils (Bld) [#/Vol] 0.0 10*3/uL Normal 0.0-0.2 [facility] Comment on above: Order Comment: No: D o not add to previous draw Performed By: #### 2 5508, 13609, 26137, 49628, 62467, 79948 #### [facility] [address] [place] [address], [place] Basophils/100 WBC (Bld) 0.6 % Normal 0.0-1.0 [facility] Comment on above: Order Comment: No: D o not add to previous draw Performed By: #### 2 5508, 18087, 76328, 55038, 87985, 04700 #### [facility] [address] [place] [address], [place] Eosinophils (Bld) [#/Vol] 0.0 10*3/uL Normal 0.0-0.5 [facility] Comment on above: Order Comment: No: D o not add to previous draw Performed By: #### 2 5508, 61350, 89774, 55511, 41235, 42576 #### [facility] [address] [place] [address], [place] Eosinophils/100 WBC (Bld) 0.2 % Normal 0.0-6.0 [facility] Comment on above: Order Comment: No: D o not add to previous draw Performed By: #### 2 5508, 47108, 53408, 22331, 36823, 61155 #### [facility] [address] [place] [address], [facility] Erythrocyte distribution width (RBC) [Ratio] 13.9 % Normal 11.5-15.0 [facility] Comment on above: Order Comment: No: D o not add to previous draw Performed By: #### 2 5508, 21574, 74974, 91785, 15824, 57558 #### [facility] [address] [place] [address], [facility] Hematocrit (Bld) [Volume fraction] 40.6 % Normal 39.0-50.0 [facility] Comment on above: Order Comment: No: D o not add to previous draw Performed By: #### 2 5508, 45668, 81302, 35764, 98220, 80416 #### [facility] [address] [place] [address], [facility] Hemoglobin (Bld) [Mass/Vol] 13.7 g/dL Normal 13.0-17.0 [facility] Comment on above: Order Comment: No: D o not add to previous draw Performed By: #### 2 5508, 06457, 27016, 58578, 87817, 91230 #### [facility] [address] [place] [address], [facility] IMM PLATELET FRAC 6.9 % High 0.8-6.3 [facility] Comment on above: Order Comment: No: D o not add to previous draw Performed By: #### 2 5508, 30907, 29079, 08192, 32436, 19231 #### [facility] [address] [place] [address], [place] IMMATURE GRANS 0.8 % Normal 0.0-1.0 [facility] Comment on above: Order Comment: No: D o not add to previous draw Performed By: #### 2 5508, 54383, 41058, 63147, 38984, 89889 #### [facility] [address] [address], [facility] Lymphocytes (Bld) [#/Vol] 0.8 10*3/uL Low 1.2-4.0 [facility] Comment on above: Order Comment: No: D o not add to previous draw Performed By: #### 2 5508, 56885, 33970, 30689, 98905, 69320 #### [facility] [address] [facility] [place] [address], [facility] Lymphocytes/100 WBC (Bld) 15.5 % Low 20.0-45.0 [facility] Comment on above: Order Comment: No: D o not add to previous draw Performed By: #### 2 5508, 26868, 33127, 14249, 17580, 28329 #### [facility] [address] [facility] [place] [address], [facility] MCH (RBC) [Entitic mass] 29.3 pg Normal 27.0-33.0 [facility] Comment on above: Order Comment: No: D o not add to previous draw Performed By: #### 2 5508, 69704, 35140, 89840, 67933, 53489 #### [facility] [address] [address], [facility] MCHC (RBC) [Mass/Vol] 33.7 g/dL Normal 32.0-35.0 [facility] Comment on above: Order Comment: No: D o not add to previous draw Performed By: #### 2 5508, 61936, 72588, 98993, 09998, 45421 #### [facility] [address] [place] [id number], [facility] MCV (RBC) [Entitic vol] 86.9 fL Normal 82.0-98.0 [facility] Comment on above: Order Comment: No: D o not add to previous draw Performed By: #### 2 5508, 86526, 74156, 61238, 06998, 74522 #### [facility] [address] [place] [address], [facility] Monocytes (Bld) [#/Vol] 0.5 10*3/uL Normal 0.1-1.0 [facility] Comment on above: Order Comment: No: D o not add to previous draw Performed By: #### 2 5508, 91340, 01349, 76649, 47204, 79545 #### [facility] [address] [address], [facility] MONOS 9.7 % Normal 5.0-12.0 [facility] Comment on above: Order Comment: No: D o not add to previous draw Performed By: #### 2 5508, 88643, 88887, 50584, 60081, 82178 #### [facility] [address] [place] [address], [facility] Neutrophils/100 WBC (Bld) 73.2 % High 40.0-72.0 [facility] Comment on above: Order Comment: No: D o not add to previous draw Performed By: #### 2 5508, 20527, 99746, 53437, 28696, 94611 #### [facility] [address] [place] [address], [facility] Nucleated RBC/100 WBC (Bld) [Ratio] 0 % Normal 0-0 [facility] Comment on above: Order Comment: No: D o not add to previous draw Performed By: #### 2 5508, 12630, 81681, 25017, 40998, 43520 #### [facility] [address] [place] [id number], [facility] PLAT CNT 81 10*3/uL Low 150-400 [facility] Comment on above: Order Comment: No: D o not add to previous draw Performed By: #### 2 5508, 71759, 29440, 11972, 69547, 12776 #### [facility] [address] [place] [address], [facility] RBC (Bld) [#/Vol] 4.67 10*6/uL Normal 4.20-5.70 [facility] Comment on above: Order Comment: No: D o not add to previous draw Performed By: #### 2 5508, 30201, 72927, 90014, 32098, 88065 #### [facility] [address] [place] [address], [facility] WBC (Bld) [#/Vol] 4.96 10*3/uL Normal 4.00-10.60 [facility] Comment on above: Order Comment: No: D o not add to previous draw Performed By: #### 2 5508, 00398, 62642, 97717, 71973, 22957 #### [facility] [address] [place] [address], [facility] COMP METABOLIC PANELon 05-17 Albumin [Mass/Vol] 3.0 g/dL Low 3.5-5.7 [facility] Comment on above: Order Comment: No: D o not add to previous draw Performed By: #### 2 5508, 74437, 66464, 45584, 26940, 23620 #### [facility] [address] [place] [address], [facility] ALKALINE PHOSPH 48 IU/L Normal 34-104 [facility] Comment on above: Order Comment: No: D o not add to previous draw Performed By: #### 2 5508, 08709, 11808, 24930, 75090, 07879 #### [facility] [address] [place] [address], [facility] ALT [Catalytic activity/Vol] 11 U/L Normal 7-52 [facility] Comment on above: Order Comment: No: D o not add to previous draw Performed By: #### 2 5508, 41011, 67692, 13401, 78040, 91247 #### [facility] [address] [place] [address], [place] AST [Catalytic activity/Vol] 19 U/L Normal 13-39 [facility] Comment on above: Order Comment: No: D o not add to previous draw Performed By: #### 2 5508, 60236, 22917, 73553, 66505, 68820 #### [facility] [address] [place] [address], [place] Bilirubin [Mass/Vol] 0.7 mg/dL Normal 0.3-1.0 [facility] Comment on above: Order Comment: No: D o not add to previous draw Performed By: #### 2 5508, 77185, 62242, 92185, 56437, 99592 #### [facility] [address] [place] [address], [place] Calcium [Mass/Vol] 8.5 mg/dL Low 8.6-10.3 [facility] Comment on above: Order Comment: No: D o not add to previous draw Performed By: #### 2 5508, 50065, 22339, 71648, 00247, 20144 #### [facility] [address] [place] [address], [place] Chloride [Moles/Vol] 104 mmol/L Normal 98-107 [facility] Comment on above: Order Comment: No: D o not add to previous draw Performed By: #### 2 5508, 62564, 09839, 43767, 91864, 05351 #### [facility] [address] [place] [address], [place] CO2 [Moles/Vol] 19 mmol/L Low 21-31 [facility] Comment on above: Order Comment: No: D o not add to previous draw Performed By: #### 2 5508, 91920, 68863, 25623, 23830, 96491 #### [facility] [address] [place] [address], [facility] Creatinine [Mass/Vol] 1.71 mg/dL High 0.70-1.30 [facility] Comment on above: Order Comment: No: D o not add to previous draw Performed By: #### 2 5508, 30705, 41391, 38191, 23198, 43940 #### [facility] [address] [place] [address], [facility] EGFR 40 ml/min/1.73sq m Abnormal >60 [facility] Comment on above: Order Comment: No: D o not add to previous draw Result Comment: [facility]'s estimated glomerular filtration rate (eGFR) [...] of individuals. Performed By: #### 2 5508, 26740, 28442, 60737, 86110, 75223 #### [facility] [address] [place] [address], [facility] Glucose [Mass/Vol] 96 mg/dL Normal 70-100 [facility] Comment on above: Order Comment: No: D o not add to previous draw Performed By: #### 2 5508, 90167, 29149, 73338, 98988, 28757 #### [facility] [address] [place] [address], [facility] Potassium [Moles/Vol] 3.8 mmol/L Normal 3.5-5.1 [facility] Comment on above: Order Comment: No: D o not add to previous draw Performed By: #### 2 5508, 78979, 35098, 40136, 19520, 15526 #### [facility] [address] [place] [address], [facility] Protein [Mass/Vol] 5.7 g/dL Low 6.0-8.3 [facility] Comment on above: Order Comment: No: D o not add to previous draw Performed By: #### 2 5508, 14856, 37817, 96329, 32467, 60550 #### [facility] [address] [place] [address], [facility] Sodium [Moles/Vol] 133 mmol/L Low 136-145 [facility] Comment on above: Order Comment: No: D o not add to previous draw Performed By: #### 2 5508, 84962, 94959, 16782, 13776, 85311 #### [facility] [address] [place] [address], [facility] Urea nitrogen [Mass/Vol] 57 mg/dL High 7-25 [facility] Comment on above: Order Comment: No: D o not add to previous draw Performed By: #### 2 5508, 08196, 69560, 35550, 92264, 72076 #### [facility] [address] CPKon 05-17-2022 CK [Catalytic activity/Vol] 44 U/L Normal 30-223 [facility] Comment on above: Order Comment: No: D o not add to previous draw Performed By: #### 2 5508, 96157, 22298, 99607, 27929, 13070 #### [facility] [address] [place] [id number], [facility] FREE T4on 05-17-2022 Free T4 [Mass/Vol] 0.78 ng/dL Normal 0.71-1.85 [facility] Comment on above: Performed By: #### 2 5508, 47483, 25304, 11195, 37105, 27195 #### [facility] [address] [place] [address], [facility] HEMOGLOBIN A1Con 05-17-2022 Glucose [Moles/Vol] 117 mmol/L Normal [facility] Comment on above: Order Comment: No: D o not add to previous draw Performed By: #### 2 5508, 22583, 05089, 70187, 60006, 57129 #### [facility] [address] [place] [address], [facility] HbA1c (Bld) [Mass fraction] 5.7 % Normal 4.0-6.0 [facility] Comment on above: Order Comment: No: D o not add to previous draw Performed By: #### 2 5508, 45224, 38112, 52757, 69960, 13067 #### [facility] [address] [place] [address], [facility] LACTATE BLOODon 05-17-2022 Lactate [Moles/Vol] 1.0 mmol/L Normal .5-2.2 [facility] Comment on above: Order Comment: No: D o not add to previous draw Performed By: #### 2 5508, 63503, 76589, 22552, 48944, 12761 #### [facility] [address] [place] [address], [facility] LIPID PROFILEon 05-17-2022 Cholesterol [Mass/Vol] 141 mg/dL Normal 120-200 [facility] Comment on above: Order Comment: No: D o not add to previous draw Result Comment: CHOL ESTEROL REFERENCE RANGE: 20 YEARS AND OLDER CARDIOVASCULAR RISK Less than 200 mg/dl Low Risk 200 to 239 mg/dl Borderline Risk 240 mg/dl and greater High Risk Performed By: #### 2 5508, 57278, 33087, 99487, 30237, 00232 #### [facility] [address] [place] [address], [facility] Cholesterol in HDL [Mass/Vol] 22 mg/dL Low 23-92 [facility] Comment on above: Order Comment: No: D o not add to previous draw Result Comment: Slig ht variation in normal range could be due to gender and/or age. HDL CHOLESTEROL REFERENCE RANGE: 20 years and older Cardiovascular Risk > or =60 mg/dL Desirable 40 TO 59 mg/dL Low Risk <40 mg/dL High Risk Performed By: #### 2 5508, 29752, 51409, 49963, 40659, 59327 #### [facility] [address] [place] [address], [place] Cholesterol in LDL [Mass/Vol] 95 mg/dL Normal 0-130 [facility] Comment on above: Order Comment: No: D o not add to previous draw Result Comment: LDL IS A CALCULATION LDL IS ONLY VALID IF THE TRIG IS LESS THAN 400. Performed By: #### 2 5508, 69325, 89399, 96580, 22684, 02089 #### [facility] [address] [place] [address], [facility] Cholesterol.total/C holesterol in HDL [Mass ratio] 6.4 {ratio} High .0-4.5 [facility] Comment on above: Order Comment: No: D o not add to previous draw Performed By: #### 2 5508, 97199, 01246, 04241, 50404, 31223 #### [facility] [address] [place] [address], [place] NON-HDL CHOLESTEROL 119 mg/dL Normal [facility] Comment on above: Order Comment: No: D o not add to previous draw Performed By: #### 2 5508, 71865, 55522, 81255, 29440, 47985 #### [facility] [address] [place] [address], [place] Triglyceride [Mass/Vol] 122 mg/dL Normal 40-149 [facility] Comment on above: Order Comment: No: D o not add to previous draw Result Comment: TRIG LYCERIDE REFERENCE RANGE: 20 YEARS AND OLDER CARDIOVASCULAR RISK LESS THAN 150 mg/dl LOW RISK 150 TO 199 mg/dl BORDERLINE RISK 200 mg/dl AND GREATER HIGH RISK Performed By: #### 2 8538, 57128, 73543, 85336, 73008, 94201 #### [facility] [address] [place] [address], [facility] VLDL CHOL 24 mg/dL Normal 0-40 [facility] Comment on above: Order Comment: No: D o not add to previous draw Performed By: #### 2 5508, 10742, 71540, 95680, 29822, 72799 #### [facility] [address] [place], [place] [address] POC GLUCOSE LABon 05-17-2022 Glucose [Mass/Vol] 91 mg/dL Normal 70-100 [facility] Comment on above: Performed By: #### 2 5508, 87330, 13777, 04293, 97238, 41413 #### [facility] [address] [place] [place] [address], [facility] PORTABLE CHEST 1 VIEWon PORTABLE CHEST 1 VIEW [facility] Department of Radiology [address] [place] [id number] Patient Name: JOSÉ MIGUEL ANTONIO : 1940 Sex: M Age: Race: White Pt. Location: [id number] Patient Status: I Ordered Date: 05/17/2022 2:00:00 [...] report. Electronically signed: Valdemar Coughlin. Transcribed by: [id number], User Resident: YARON NORTH Electronically Signed by: VALDEMAR COUGHLIN @ 05/17/2022 03:59 AM I personally read this/these film(s) with this resident Normal [facility] Comment on above: Order Comment: No: D o not add to previous draw PROTHROMBIN TIMEon INR Coag (PPP) [Relative time] 2.07 {INR} High 0.91-1.16 [facility] Comment on above: Order Comment: [...] CHEST 1995;108:[id number]. Performed By: #### 2 5508, 90834, 51855, 14069, 46504, 40109 #### [facility] [address] [place] [address], [facility] PT Coag (PPP) [Time] 22.9 s High 12.3-14.8 [facility] Comment on above: Order Comment: No: D o not add to previous draw Result Comment: ALL RESULTS MUST BE INTERPRETED WITH RESPECT TO BLOOD DRAWING ARTIFACT OR DILUTION ERROR OF ANTICOAGULANT AT THE TIME OF SAMPLING. Performed By: #### 2 5508, 29392, 53785, 19951, 76466, 92363 #### [facility] [address] [place] [address], [facility] TROPONIN-Ion 05-17-2022 Troponin I.cardiac [Mass/Vol] 0.25 ng/mL Critically high 0.00-0.04 [facility] Comment on above: Order Comment: No: D o not add to previous draw Result Comment: M-OH EVIOUS CRITICAL RESULT REFERENCE RANGES: 0.00 - 0.04 ng/ml NORMAL 0.05 - 0.50 ng/ml INDETERMINATE > 0.50 ng/ml CONSISTENT WITH AN M.I. Performed By: #### 2 5508, 92398, 32853, 24319, 95043, 24634 #### [facility] [address] [place] [address], [facility] Troponin I.cardiac [Mass/Vol] 0.31 ng/mL Critically high 0.00-0.04 [facility] Comment on above: Order Comment: No: D o not add to previous draw Result Comment: M-TR OPONIN INITIAL CRITICAL HIGH; RESPUN AND RETESTED M-CRITICAL RESULT(S) REVIEWED, CALLED TO AND READ BACK BY DARIAN CLEMENTS AT 0345 REFERENCE RANGES: 0.00 - 0.04 ng/ml NORMAL 0.05 - 0.50 ng/ml INDETERMINATE > 0.50 ng/ml CONSISTENT WITH AN M.I. Performed By: #### 2 5508, 18695, 76665, 74177, 38350, 94875 #### [facility] [address] TSH3 WITH REFLEX FT4on 05-17 TSH 3RD GENERATION 0.19 uIU/mL Low 0.34-5.60 The [facility] Comment on above: Order Comment: No: D o not add to previous draw Performed By: #### 2 5508, 54561, 50322, 98837, 19550, 51302 #### [facility] [address] UFH HEPARIN ASSAYon 05-17-20 22 UNFRACTIONATED HEPARIN >1.00 Critically high 0.30-0.70 [facility] Comment on above: Result Comment: Resu lt checked and called. Accurately read back by brandi storey rn on 05/17/2022 at 18:38 Rivaroxaban and Apixaban will interfere with the anti Xa assay used to monitor UFH and LMWH. Performed By: #### 2 5508, 37955, 35450, 50955, 23863, 34461 #### [facility] [address] [place] [address], [facility] UNFRACTIONATED HEPARIN >1.00 Critically high 0.30-0.70 [facility] Comment on above: Result Comment: Resu lt checked and called. Accurately read back by BRANDI STOREY @ 1000 Rivaroxaban and Apixaban will interfere with the anti Xa assay used to monitor UFH and LMWH. Performed By: #### 2 5508, 18349, 42414, 37655, 42447, 10453 #### [facility] [address] [place] [address], [facility] UNFRACTIONATED HEPARIN >1.00 Critically high 0.30-0.70 [facility] Comment on above: Result Comment: Resu lt checked and called. Accurately read back by Darian Clements RN at 0251 PT on Elquis UFH = 2.79 for pharmacy use Rivaroxaban and Apixaban will interfere with the anti Xa assay used to monitor UFH and LMWH. Performed By: #### 2 5508, 67518, 19885, 46611, 29039, 49440 #### [facility] [address] [place] [address], [facility] URINALYSIS REFLEXon 05-17-20 22 Appearance (U) CLEAR Normal CLEAR [facility] Comment on above: Order Comment: No: D o not add to previous draw Performed By: #### 2 5508, 47677, 64391, 91020, 80027, 17408 #### [facility] [address] [place] [address], [place] Bilirubin Ql (U) Negative Normal NEGATIVE [facility] Comment on above: Order Comment: No: D o not add to previous draw Performed By: #### 2 5508, 54907, 18352, 12877, 25723, 36149 #### [facility] [address] [place] [address], [place] Color (U) YELLOW Normal YELLOW [facility] Comment on above: Order Comment: No: D o not add to previous draw Performed By: #### 2 5508, 38660, 09257, 41502, 93809, 67053 #### [facility] [address] [place] [address], [place] EPIS NONE SEEN Normal FEW,OCC,NON E SEEN [facility] Comment on above: Order Comment: No: D o not add to previous draw Performed By: #### 2 5508, 80995, 73906, 14636, 74430, 56529 #### [facility] [address] [place] [address], [place] Glucose Ql (U) Negative Normal NEGATIVE [facility] Comment on above: Order Comment: No: D o not add to previous draw Performed By: #### 2 5508, 39298, 23188, 92345, 35125, 37272 #### [facility] [address] [place] [address], [facility] Hemoglobin Ql (U) TRACE Abnormal NEGATIVE [facility] Comment on above: Order Comment: No: D o not add to previous draw Performed By: #### 2 5508, 62552, 76742, 29047, 15680, 04572 #### [facility] [address] [place] [address], [place] KETONE Negative Normal NEGATIVE [facility] Comment on above: Order Comment: No: D o not add to previous draw Performed By: #### 2 5508, 24233, 05504, 08316, 89828, 90598 #### [facility] [address] [place] [address], [place] LEUK MARQUITA Negative Normal NEGATIVE [facility] Comment on above: Order Comment: No: D o not add to previous draw Performed By: #### 2 5508, 88680, 26155, 43577, 37755, 90218 #### [facility] [address] [place] [address], [place] MUCUS THREADS OCC Abnormal NONE SEEN [facility] Comment on above: Order Comment: No: D o not add to previous draw Performed By: #### 2 5508, 19528, 04250, 31001, 97043, 07219 #### [facility] [address] [place] [address], [place] Nitrite Ql (U) Negative Normal NEGATIVE [facility] Comment on above: Order Comment: No: D o not add to previous draw Performed By: #### 2 5508, 80644, 42701, 15184, 85262, 85330 #### [facility] [address] [place] [address], [place] pH (U) 5.5 [pH] Normal 5.0-8.0 [facility] Comment on above: Order Comment: No: D o not add to previous draw Performed By: #### 2 5508, 07960, 40592, 13315, 23946, 64759 #### [facility] [address] Protein Ql (U) 30 Abnormal NEGATIVE [facility] Comment on above: Order Comment: No: D o not add to previous draw Performed By: #### 2 5508, 88400, 87976, 18900, 63690, 33051 #### [facility] [address] [facility] RBC 3-5 Abnormal NONE SEEN [facility] Comment on above: Order Comment: No: D o not add to previous draw Performed By: #### 2 5508, 45584, 63079, 58035, 26866, 05809 #### [facility] [address] [facility]. [address] SPEC GRAV 1.015 Normal 1.015-1.020 [facility] Comment on above: Order Comment: No: D o not add to previous draw Performed By: #### 2 5508, 22701, 23756, 72156, 02860, 99435 #### [facility] [address] [facility] WBC UA 0-2 Abnormal NONE SEEN [facility] Comment on above: Order Comment: No: D o not add to previous draw Performed By: #### 2 5508, 48607, 96101, 10972, 15089, 87107 #### [facility] [address] [facility]. [address] BNPon 05-16-2022 Natriuretic peptide B (Bld) [Mass/Vol] 80971.0 pg/mL Critically high <=1,800.0 [facility] Comment on above: Performed By: #### B MP, BNP #### [facility] [address] [place] [address] Dr. Silva Burnett CBC AUTO DIFFon 05-16-2022 BASO # 0.0 103/ul Normal 0.0-0.1 [facility] Comment on above: Performed By: #### V ITAD #### [facility] [address] [place] [address] Dr. Silva Burnett Basophils/100 WBC (Bld) 0.6 % Normal 0.2-2.0 [facility] Comment on above: Performed By: #### V ITAD #### [facility] [address] [place] [address] Dr. Silva Burnett EO # 0.0 103/ul Normal 0.0-0.7 [facility] Comment on above: Performed By: #### V ITAD #### [facility] [address] [place] [address] Dr. Silva Burnett Eosinophils/100 WBC (Bld) 0.1 % Critically low 0.9-7.0 [facility] Comment on above: Performed By: #### V ITAD #### [facility] [address] [place] [address] Dr. Silva Burnett Erythrocyte distribution width (RBC) [Ratio] 13.7 % Normal 11.0-15.0 [facility] Comment on above: Performed By: #### V ITAD #### [facility] [address] [place] [address] Dr. Silva Burnett Hematocrit (Bld) [Volume fraction] 45.5 % Normal 42.0-54.0 [facility] Comment on above: Performed By: #### V ITAD #### [facility] [address] [place] [address] Dr. Silva Burnett Hemoglobin (Bld) [Mass/Vol] 14.9 g/dL Normal 14.0-18.0 [facility] Comment on above: Performed By: #### V ITAD #### [facility] [address] [place] [address] Dr. Silva Burnett IG # 0.04 10e3/ul Critically high 0.00-0.03 [facility] Comment on above: Performed By: #### V ITAD #### [facility] [address] [address] [address] Silva Burnett IG % 0.6 % Critically high 0.0-0.5 [facility] Comment on above: Performed By: #### V ITAD #### [facility] [address] [address] [address] Silva Burnett LYMPH # 0.8 103/ul Critically low 1.2-3.8 [facility] Comment on above: Performed By: #### V ITAD #### [facility] [address] [place] [address] Dr. Silva Burnett Lymphocytes/100 WBC (Bld) 11.9 % Critically low 20.5-60.0 [facility] Comment on above: Performed By: #### V ITAD #### [facility] [address] [place] [address] Dr. Silva Burnett MANUAL DIFF REQ NO Normal [facility] Comment on above: Performed By: #### V ITAD #### [facility] [address] [address] [address] Silva Burnett MCH (RBC) [Entitic mass] 29.0 pg Normal 25.9-34.0 [facility] Comment on above: Performed By: #### V ITAD #### [facility] [address] [address] [address] Silva Burnett MCHC (RBC) [Mass/Vol] 32.7 g/dL Normal 29.9-35.2 [facility] Comment on above: Performed By: #### V ITAD #### [facility] [address] [address] [address] Silva Burnett MCV (RBC) [Entitic vol] 88.7 fL Normal 80.0-94.0 [facility] Comment on above: Performed By: #### V ITAD #### [facility] [address] [place] [address] Dr. Silva Burnett MONO # 0.4 103/ul Normal 0.3-0.8 [facility] Comment on above: Performed By: #### V ITAD #### [facility] [address] [address] [address] Silva Burnett Monocytes/100 WBC (Bld) 6.5 % Normal 1.7-12.0 [facility] Comment on above: Performed By: #### V ITAD #### [facility] [address] [address] [address] Silva Burnett NEUT # 5.4 103/ul Normal 1.4-6.5 [facility] Comment on above: Performed By: #### V ITAD #### [facility] [address] [address] [address] Silva Burnett Neutrophils/100 WBC (Bld) 80.3 % Critically high 43.0-75.0 [facility] Comment on above: Performed By: #### V ITAD #### [facility] [address] [place] [address] Dr. Silva Burnett Platelet mean volume (Bld) [Entitic vol] 11.5 fL Normal 9.5-13.5 [facility] Comment on above: Performed By: #### V ITAD #### [facility] [address] [address] [address] Silva Burnett PLT 111 103/ul Critically low 150-450 [facility] Comment on above: Performed By: #### V ITAD #### [facility] [address] [place] [address] Dr. Silva Burnett RBC 5.13 106/ul Normal 4.70-6.10 [facility] Comment on above: Performed By: #### V ITAD #### [facility] [address] [place], [place] [id number] Dr. Silva Burnett WBC 6.7 103/ul Normal 4.0-11.0 [facility] Comment on above: Performed By: #### V ITAD #### [facility] [address] [place] [address] HEAD WO CONon [...] LINDA JUNIOR Date: 2022-05-16 17:37 Normal [facility] CULTURE URINEon 05-16-2022 CULTURE URINE Culture Observations : NO GROWTH. Normal [facility] Comment on above: Performed By: #### V ITAD #### [facility] [address] [place] [address] Dr. Silva Burnett Covid-19 PCR ([facility])on 04-18 SARS-CoV-2 (COVID-19) RNA BRANT+probe Ql (Unsp spec) Not detected Normal NOT DETECTED [facility] Comment on above: Result Comment: When [...] for this test is supported by the [place] of Health and Human Service's declaration that [...] used). Performed By: #### C VDTBH #### [facility] [address] [place] [address] Dr. Silva Burnett ER URINE PROFILEon 2 Bilirubin Ql (U) Negative Normal NEGATIVE [facility] Comment on above: Performed By: #### B MP, BNP #### [facility] [address] [place] [address] Dr. Silva Burnett Clarity (U) CLEAR Normal CLEAR [facility] Comment on above: Performed By: #### B MP, BNP #### [facility] [address] [place] [address] Dr. Silva Burnett Color (U) DK. YELLOW Normal YELLOW [facility] Comment on above: Performed By: #### B MP, BNP #### [facility] [address] [place] [address] Dr. Silva Burnett ERUAHD A micrscopic examina tion will be performed if indicated. Normal [facility] Comment on above: Performed By: #### B MP, BNP #### [facility] [address] [place] [address] Dr. Silva Burnett Glucose Ql (U) Negative Normal NEGATIVE [facility] Comment on above: Performed By: #### B MP, BNP #### [facility] [address] [place] [address] Dr. Silva Burnett Hemoglobin Ql (U) TRACE-INTACT Abnormal NEGATIVE [facility] Comment on above: Performed By: #### B MP, BNP #### [facility] [address] [place] [address] Dr. Silva Burnett Ketones Ql (U) TRACE Abnormal NEGATIVE [facility] Comment on above: Performed By: #### B MP, BNP #### [facility] [address] [place] [address] Dr. Silva Burnett LEUKOCYTES Negative Normal NEGATIVE [facility] Comment on above: Performed By: #### B MP, BNP #### [facility] [address] [place] [address] Dr. Silva Burnett Nitrite Ql (U) Negative Normal NEGATIVE [facility] Comment on above: Performed By: #### B MP, BNP #### [facility] [address] [place] [address] Dr. Silva Burnett pH (U) 5.5 [pH] Normal 5-9 [facility] Comment on above: Performed By: #### B MP, BNP #### [facility] [address] [place] [address] Dr. Silva Burnett Protein (U) [Mass/Vol] 30 mg/dL Abnormal NEGATIVE/ TRACE [facility] Comment on above: Performed By: #### B MP, BNP #### [facility] [address] [place] [address] Dr. Silva Burnett SPEC GRAVITY 1.025 Normal 1.005-<=1.0 25 [facility] Comment on above: Performed By: #### B MP, BNP #### [facility] [address] [place] [address] Dr. Silva Burnett UR MICRO IND INDICATED Normal [facility] Comment on above: Performed By: #### B MP, BNP #### [facility] [address] [place] [address] Dr. Silva Burnett Urobilinogen Qn (U) 0.2 {Zaina'U}/dL Normal 0.2 - 1. 0 [facility] Comment on above: Performed By: #### B MP, BNP #### [facility] [address] [place] [address] Dr. Silva Burnett PROF 14(COMP METB)on 022 Albumin [Mass/Vol] 2.8 g/dL Critically low 3.4-5.0 [facility] Comment on above: Performed By: #### B MP, BNP #### [facility] [address] [place] [address] Dr. Silva Burnett Albumin/Globulin [Mass ratio] 0.7 {ratio} Normal [facility] Comment on above: Performed By: #### B MP, BNP #### [facility] [address] [address] [address] Silva Burnett ALP [Catalytic activity/Vol] 69 U/L Normal 46-116 [facility] Comment on above: Performed By: #### B MP, BNP #### [facility] [address] [place] [address] Dr. Silva Burnett ALT [Catalytic activity/Vol] 16 U/L Normal 16-63 [facility] Comment on above: Performed By: #### B MP, BNP #### [facility] [address] [place] [address] Dr. Silva Burnett Anion gap [Moles/Vol] 15.2 mmol/L Normal [facility] Comment on above: Performed By: #### B MP, BNP #### [facility] [address] [place] [address] Dr. Silva Burnett AST [Catalytic activity/Vol] 30 U/L Normal 15-37 [facility] Comment on above: Performed By: #### B MP, BNP #### [facility] [address] [place] [address] Dr. Silva Burnett Bilirubin [Mass/Vol] 0.9 mg/dL Normal 0.2-1.0 [facility] Comment on above: Performed By: #### B MP, BNP #### [facility] [address] [place] [address] Dr. Silva Burnett Calcium [Mass/Vol] 9.0 mg/dL Normal 8.5-10.1 [facility] Comment on above: Performed By: #### B MP, BNP #### [facility] [address] [place] [address] Dr. Silva Burnett Chloride [Moles/Vol] 98 mmol/L Normal 98-107 [facility] Comment on above: Performed By: #### B MP, BNP #### [facility] [address] [place] [address] Dr. Sliva Burnett CO2 [Moles/Vol] 22.9 mmol/L Normal 21.0-32.[address] [facility] Comment on above: Performed By: #### B MP, BNP #### [facility] [address] [address] [address] Silva Burnett Creatinine [Mass/Vol] 2.20 mg/dL Critically high 0.70-1.30 [facility] Comment on above: Performed By: #### B MP, BNP #### [facility] [address] [address] [address] Silva Burnett EGFR-AF GREENLANDIC 35 mL/min/1.73m2 Critically low >=60 [facility] Comment on above: Performed By: #### B MP, BNP #### [facility] [address] [address] [address] Silva Burnett EGFR-NON AF GREENLANDIC 29 mL/min/1.73m2 Critically low >=60 [facility] Comment on above: Performed By: #### B MP, BNP #### [facility] [address] [place] [address] Dr. Silva Burnett Globulin (S) [Mass/Vol] 4.0 g/dL Normal [facility] Comment on above: Performed By: #### B MP, BNP #### [facility] [address] [address] [address] Silva Burnett Glucose [Mass/Vol] 148 mg/dL Critically high 74-106 [facility] Comment on above: Performed By: #### B MP, BNP #### [facility] [address] [address] [address] Silva Burnett Potassium [Moles/Vol] 4.1 mmol/L Normal 3.5-5.1 [facility] Comment on above: Performed By: #### B MP, BNP #### [facility] [address] [address] [address] Silva Burnett Protein [Mass/Vol] 6.8 g/dL Normal 6.4-8.2 [facility] Comment on above: Performed By: #### B MP, BNP #### [facility] [address] [address] [address] Silva Burnett Sodium [Moles/Vol] 132 mmol/L Critically low 136-145 [facility] Comment on above: Performed By: #### B MP, BNP #### [facility] [address] [place] [address] Dr. Silva Burnett Urea nitrogen [Mass/Vol] 60.0 mg/dL Critically high 7.0-18.0 [facility] Comment on above: Performed By: #### B MP, BNP #### [facility] [address] [place] [address] Dr. Silva Burnett Urea nitrogen/Creatinine [Mass ratio] 27.3 mg/mg Normal [facility] Comment on above: Performed By: #### B MP, BNP #### [facility] [address] [place] [address] Dr. Silva Burnett PROTIMEon 05-16-2022 INR Coag (PPP) [Relative time] 1.43 {INR} Normal [facility] Comment on above: Performed By: #### V ITAD #### [facility] [address] [place] [address] Dr. Silva Burnett INR GUIDELINES SEE BELOW Normal [facility] Comment on above: Result Comment: EDMOND RED INR: 2.0 - 3.0 CONDITIONS NOT LISTED BELOW 2.5 - 3.5 FOR PROSTHETIC HEART VALVE REPLACEMENT 2.5 - 3.5 RECURRENT THROMBOSIS Performed By: #### V ITAD #### [facility] [address] [place] [address] Dr. Silva Burnett PT Coag (PPP) [Time] 15.1 s Critically high 9.0-11.6 [facility] Comment on above: Performed By: #### V ITAD #### [facility] [address] [place] [address] Dr. Silva Burnett PTTon 05-16-2022 aPTT Coag (Bld) [Time] 35.6 s Normal 22.3-36.2 [facility] Comment on above: Performed By: #### V ITAD #### [facility] [address] [place] [address] Dr. Silva Burnett TROPONIN, HIGH SENSITIVITYon 05-16-2022 HSTROP 895.9 pg/mL Critically high 4.0-76.[address] [facility] Comment on above: Result Comment: CUT- OFF POINTS HAVE BEEN ESTABLISHED BASED ON THE FOURTH UNIVERSAL DEFINITIONS OF MYOCARDIAL INFARCTION. THE UPPER REFERENCE LIMIT (URL) OF TROPONIN, DEFINED THE 99TH PERCENTILE OF cTnI DISTRIBUTION IN A REFERENCE POPULATION, HAS BEEN CONFIRMED THE DECISION THRESHOLD FOR NE DIAGNOSIS. Performed By: #### B MP, BNP #### [facility] [address] [place] [address] Dr. Silva Burnett HSTROP 1000.5 pg/mL Critically high 4.0-76.1 [facility] Comment on above: Result Comment: CUT- OFF POINTS HAVE BEEN ESTABLISHED BASED ON THE FOURTH UNIVERSAL DEFINITIONS OF MYOCARDIAL INFARCTION. THE UPPER REFERENCE LIMIT (URL) OF TROPONIN, DEFINED THE 99TH PERCENTILE OF cTnI DISTRIBUTION IN A REFERENCE POPULATION, HAS BEEN CONFIRMED THE DECISION THRESHOLD FOR NE DIAGNOSIS. Performed By: #### B MP, BNP #### [facility] [address] [place] [address] Dr. Silva Burnett URINE MICROSCOPIC ONLYon BACTERIA TRACE Abnormal NONE SEEN [facility] Comment on above: Performed By: #### B MP, BNP #### [facility] [address] [place] [address] Dr. Silva Burnett Bacteria identified Cx Nom (U) INDICATED Normal [facility] Comment on above: Performed By: #### B MP, BNP #### [facility] [address] [place] [address] Dr. Silva Burnett CAST SEEN Abnormal NONE SEEN [facility] Comment on above: Performed By: #### B MP, BNP #### [facility] [address] [place] [address] Dr. Silva Burnett Crystals LM Nom (Urine sed) NONE SEEN Normal NONE SEEN [facility] Comment on above: Performed By: #### B MP, BNP #### [facility] [address] [place] [address] Dr. Silva Burnett Epithelial cells LM Ql (Urine sed) FEW Abnormal NONE SEEN /RARE [facility] Comment on above: Performed By: #### B MP, BNP #### [facility] [address] [place] [address] Dr. Silva Burnett HYALINE CAST FEW Normal [facility] Comment on above: Performed By: #### B MP, BNP #### [facility] [address] [address] [address] Silva Burnett MUCOUS SMALL Abnormal NONE SEEN [facility] Comment on above: Performed By: #### B MP, BNP #### [facility] [address] [address] [address] Silva Burnett RBC 0-2 Normal 0-2 [facility] Comment on above: Performed By: #### B MP, BNP #### [facility] [address] [address] [address] Silva Burnett WBC 5-10 Abnormal NONE SEEN [facility] Comment on above: Performed By: #### B MP, BNP #### [facility] [address] [address] [address] Silva Burnett XR CHEST 1 Von [...] AYANA FERNANDEZ Date: 2022-05-16 15:53 Normal [facility] BNPon 05-14-2022 NT PRO BNP >11645.0 Critically high <=1,800.0 [facility] Comment on above: Performed By: #### B MP, BNP #### [facility] [address] [address] [address] Silva Burnett CBC AUTO DIFFon 05-14-2022 BASO # 0.0 103/ul Normal 0.0-0.1 [facility] Comment on above: Performed By: #### B MP, BNP #### [facility] [address] [address] [address] Silva Burnett Basophils/100 WBC (Bld) 0.3 % Normal 0.2-2.0 [facility] Comment on above: Performed By: #### B MP, BNP #### [facility] [address] [place] [address] Dr. Silva Burnett EO # 0.0 103/ul Normal 0.0-0.7 [facility] Comment on above: Performed By: #### B MP, BNP #### [facility] [address] [place] [address] Dr. Silva Burnett Eosinophils/100 WBC (Bld) 0.0 % Critically low 0.9-7.0 [facility] Comment on above: Performed By: #### B MP, BNP #### [facility] [address] [place] [address] Dr. Sivla Burnett Erythrocyte distribution width (RBC) [Ratio] 13.6 % Normal 11.0-15.0 [facility] Comment on above: Performed By: #### B MP, BNP #### [facility] [address] [place] [address] Dr. Silva Burnett Hematocrit (Bld) [Volume fraction] 41.8 % Critically low 42.0-54.0 [facility] Comment on above: Performed By: #### B MP, BNP #### [facility] [address] [place] [address] Dr. Silva Burnett Hemoglobin (Bld) [Mass/Vol] 13.6 g/dL Critically low 14.0-18.0 [facility] Comment on above: Performed By: #### B MP, BNP #### [facility] [address] [place] [address] Dr. Silva Burnett IG # 0.04 10e3/ul Critically high 0.00-0.03 [facility] Comment on above: Performed By: #### B MP, BNP #### [facility] [address] [place] [address] Dr. Silva Burnett IG % 0.5 % Normal 0.0-0.5 [facility] Comment on above: Performed By: #### B MP, BNP #### [facility] [address] [place] [address] Dr. Silva Burnett LYMPH # 0.5 103/ul Critically low 1.2-3.8 [facility] Comment on above: Performed By: #### B MP, BNP #### [facility] [address] [place] [address] Dr. Silva Burnett Lymphocytes/100 WBC (Bld) 7.1 % Critically low 20.5-60.0 [facility] Comment on above: Performed By: #### B MP, BNP #### [facility] [address] [place] [address] Dr. Silva Burnett MANUAL DIFF REQ NO Normal [facility] Comment on above: Performed By: #### B MP, BNP #### [facility] [address] [place] [address] Dr. Silva Burnett MCH (RBC) [Entitic mass] 29.4 pg Normal 25.9-34.0 [facility] Comment on above: Performed By: #### B MP, BNP #### [facility] [address] [place] [address] Dr. Silva Burnett MCHC (RBC) [Mass/Vol] 32.5 g/dL Normal 29.9-35.2 [facility] Comment on above: Performed By: #### B MP, BNP #### [facility] [address] [place] [address] Dr. Silva Burnett MCV (RBC) [Entitic vol] 90.3 fL Normal 80.0-94.0 [facility] Comment on above: Performed By: #### B MP, BNP #### [facility] [address] [place] [address] Dr. Silva Burnett MONO # 0.4 103/ul Normal 0.3-0.8 [facility] Comment on above: Performed By: #### B MP, BNP #### [facility] [address] [place] [address] Dr. Silva Burnett Monocytes/100 WBC (Bld) 5.4 % Normal 1.7-12.0 [facility] Comment on above: Performed By: #### B MP, BNP #### [facility] [address] [place] [address] Dr. Silva Burnett NEUT # 6.6 103/ul Critically high 1.4-6.5 [facility] Comment on above: Performed By: #### B MP, BNP #### [facility] [address] [place] [address] Dr. Silva Burnett Neutrophils/100 WBC (Bld) 86.7 % Critically high 43.0-75.0 [facility] Comment on above: Performed By: #### B MP, BNP #### [facility] [address] [place] [address] Dr. Silva Burnett Platelet mean volume (Bld) [Entitic vol] 10.4 fL Normal 9.5-13.5 [facility] Comment on above: Performed By: #### B MP, BNP #### [facility] [address] [place] [address] Dr. Silva Burnett PLT 110 103/ul Critically low 150-450 [facility] Comment on above: Performed By: #### B MP, BNP #### [facility] [address] [place] [address] Dr. Silva Burnett RBC 4.63 106/ul Critically low 4.70-6.10 [facility] Comment on above: Performed By: #### B MP, BNP #### [facility] [address] [place] [address] Dr. Silva Burnett WBC 7.6 103/ul Normal 4.0-11.0 [facility] Comment on above: Performed By: #### B MP, BNP #### [facility] [address] [place] [address] Dr. Silva Burnett CULTURE URINEon 05-14-2022 CULTURE URINE Culture Observations : NO GROWTH. Normal [facility] Comment on above: Performed By: #### V ITAD #### [facility] [address] [place] [address] Dr. Silva Burnett IRONon 05-14-2022 Iron [Mass/Vol] 18.0 ug/dL Critically low 65.0-175.0 [facility] Comment on above: Performed By: #### I CUBA #### [facility] [address] [address] [address] Silva Burnett PROF 14(COMP METB)on 022 Albumin [Mass/Vol] 3.4 g/dL Normal 3.4-5.0 [facility] Comment on above: Performed By: #### B MP, BNP #### [facility] [address] [place] [address] Dr. Silva Burnett Albumin/Globulin [Mass ratio] 0.8 {ratio} Normal [facility] Comment on above: Performed By: #### B MP, BNP #### [facility] [address] [place] [address] Dr. Silva Burnett ALP [Catalytic activity/Vol] 77 U/L Normal 46-116 [facility] Comment on above: Performed By: #### B MP, BNP #### [facility] [address] [place] [address] Dr. Silva Burnett ALT [Catalytic activity/Vol] 16 U/L Normal 16-63 [facility] Comment on above: Performed By: #### B MP, BNP #### [facility] [address] [place] [address] Dr. Silva Burnett Anion gap [Moles/Vol] 13.3 mmol/L Normal [facility] Comment on above: Performed By: #### B MP, BNP #### [facility] [address] [place] [address] Dr. Silva Brunett AST [Catalytic activity/Vol] 23 U/L Normal 15-37 [facility] Comment on above: Performed By: #### B MP, BNP #### [facility] [address] [place] [address] Dr. Silva Burnett Bilirubin [Mass/Vol] 0.9 mg/dL Normal 0.2-1.0 [facility] Comment on above: Performed By: #### B MP, BNP #### [facility] [address] [place] [address] Dr. Silva Burnett Calcium [Mass/Vol] 9.3 mg/dL Normal 8.5-10.1 [facility] Comment on above: Performed By: #### B MP, BNP #### [facility] [address] [address] [address] Silva Burnett Chloride [Moles/Vol] 98 mmol/L Normal 98-107 [facility] Comment on above: Performed By: #### B MP, BNP #### [facility] [address] [address] [address] Silva Burnett CO2 [Moles/Vol] 26.0 mmol/L Normal 21.0-32.[address] [facility] Comment on above: Performed By: #### B MP, BNP #### [facility] [address] [place] [address] Dr. Silva Burnett Creatinine [Mass/Vol] 1.84 mg/dL Critically high 0.70-1.30 [facility] Comment on above: Performed By: #### B MP, BNP #### [facility] [address] [place] [address] Dr. Silva Burnett EGFR-AF GREENLANDIC 43 mL/min/1.73m2 Critically low >=60 [facility] Comment on above: Performed By: #### B MP, BNP #### [facility] [address] [place] [address] Dr. Silva Burnett EGFR-NON AF GREEN[place]IC 36 mL/min/1.73m2 Critically low >=60 [facility] Comment on above: Performed By: #### B MP, BNP #### [facility] [address] [place] [address] Dr. Silva Burnett Globulin (S) [Mass/Vol] 4.1 g/dL Normal [facility] Comment on above: Performed By: #### B MP, BNP #### [facility] [address] [place] [address] Dr. Silva Burnett Glucose [Mass/Vol] 132 mg/dL Critically high 74-106 [facility] Comment on above: Performed By: #### B MP, BNP #### [facility] [address] [place] [address] Dr. Silva Burnett Potassium [Moles/Vol] 4.3 mmol/L Normal 3.5-5.1 [facility] Comment on above: Performed By: #### B MP, BNP #### [facility] [address] [address] [address] Silva Burnett Protein [Mass/Vol] 7.5 g/dL Normal 6.4-8.2 [facility] Comment on above: Performed By: #### B MP, BNP #### [facility] [address] [address] [address] Silva Burnett Sodium [Moles/Vol] 133 mmol/L Critically low 136-145 [facility] Comment on above: Performed By: #### B MP, BNP #### [facility] [address] [place] [address] Dr. Silva Burnett Urea nitrogen [Mass/Vol] 38.0 mg/dL Critically high 7.0-18.0 [facility] Comment on above: Performed By: #### B MP, BNP #### [facility] [address] [place] [address] Dr. Silva Burnett Urea nitrogen/Creatinine [Mass ratio] 20.7 mg/mg Normal [facility] Comment on above: Performed By: #### B MP, BNP #### [facility] [address] [place] [address] Dr. Silva Burnett UA RANDOM W/MICROSCOPICon BACTERIA NONE SEEN Normal NONE SEEN [facility] Comment on above: Performed By: #### U AMIC #### [facility] [address] [place] [address] Dr. Silva Burnett Bilirubin Ql (U) Negative Normal NEGATIVE [facility] Comment on above: Performed By: #### U AMIC #### [facility] [address] [place] [address] Dr. Silva Burnett CAST NONE SEEN Normal NONE SEEN [facility] Comment on above: Performed By: #### U AMIC #### [facility] [address] [place] [address] Dr. Silva Burnett Clarity (U) CLEAR Normal CLEAR [facility] Comment on above: Performed By: #### U AMIC #### [facility] [address] [place] [address] Dr. Silva Burnett Color (U) YELLOW Normal YELLOW [facility] Comment on above: Performed By: #### U AMIC #### [facility] [address] [address] [address] Silva Burnett Crystals LM Nom (Urine sed) NONE SEEN Normal NONE SEEN [facility] Comment on above: Performed By: #### U AMIC #### [facility] [address] [address] [address] Silva Burnett Epithelial cells LM Ql (Urine sed) NONE SEEN Normal NONE SEEN /RARE [facility] Comment on above: Performed By: #### U AMIC #### [facility] [address] [address] [address] Silva Burnett Glucose Ql (U) Negative Normal NEGATIVE [facility] Comment on above: Performed By: #### U AMIC #### [facility] [address] [address] [address] Silva Burnett Hemoglobin Ql (U) MODERATE Abnormal NEGATIVE [facility] Comment on above: Performed By: #### U AMIC #### [facility] [address] [address] [address] Silva Burnett Ketones Ql (U) Negative Normal NEGATIVE [facility] Comment on above: Performed By: #### U AMIC #### [facility] [address] [address] [address] Silva Burnett LEUKOCYTES Negative Normal NEGATIVE [facility] Comment on above: Performed By: #### U AMIC #### [facility] [address] [address] [address] Silva Burnett MUCOUS NONE SEEN Normal NONE SEEN [facility] Comment on above: Performed By: #### U AMIC #### [facility] [address] [address] [address] Silva Burnett Nitrite Ql (U) Negative Normal NEGATIVE [facility] Comment on above: Performed By: #### U AMIC #### [facility] [address] [address] [address] Silva Burnett pH (U) 6.0 [pH] Normal 5-9 [facility] Comment on above: Performed By: #### U AMIC #### [facility] [address] [address] [address] Silva Burnett RBC 0-2 Normal 0-2 [facility] Comment on above: Performed By: #### U AMIC #### [facility] [address] [address] [address] Silva Burnett SPEC GRAVITY 1.025 Normal 1.005-<=1.0 25 [facility] Comment on above: Performed By: #### U AMIC #### [facility] [address] [address] [address] Silva Burnett UA PROTEIN 30 mg/dl Abnormal NEGATIVE/ TRACE [facility] Comment on above: Performed By: #### U AMIC #### [facility] [address] [place] [address] Dr. Silva Burnett Urobilinogen Qn (U) 1.0 {Zaina'U}/dL Normal 0.2 - 1. 0 [facility] Comment on above: Performed By: #### U AMIC #### [facility] [address] [place] [address] Dr. Silva Burnett WBC NONE SEEN Normal NONE SEEN [facility] Comment on above: Performed By: #### U AMIC #### [facility] [address] [place] [address] Dr. Silva Burnett ICD REMOTE CHECKon 2 AV Delay Adaptive Paced Minimum (ms) 200 ms [facility] AV Delay Adaptive Sensed Minimum (ms) 170 ms [facility] Bj RA Pacing Amplitude (volts) 2 V [facility] Bj RA Pacing Polarity BI [facility] Bj RA Pacing Pulse Width (ms) 0.5 ms [facility] Bj RA Sensing Amplitude (mvolts) 0.25 mV [facility] Bj RA Sensing Polarity BI [facility] Bj RV Pacing Amplitude (volts) 2 V [facility] Bj RV Pacing Polarity BI [facility] Bj RV Pacing Pulse Width (ms) 0.5 ms [facility] Bj RV Sensing Amplitude (mvolts) 0.3 mV [facility] Bj RV Sensing Polarity [facility] Detection Configuration (Vent) 2 - Zone [facility] FastVT_Detection Interval 250 ms [facility] FastVT_Therapy Configuration 1 ATP(s) + 8 Shock(s) [facility] ICD FastVT DetectionStatus ENABLED [facility] ICD-AMS EPISODES 170 {beats}/min [facility] ICD-ATP Episodes (Vent) 0 [facility] ICD-ATRIALFIBRILLAT ION 21 [facility] ICD-ATRIALTACHYCARD IA 21 [facility] ICD-ATRIALTACHYCARD IA 6 [facility] ICD-Device Mfg BSX [facility] ICD-Fast Ventricular Tachycardia 6 [facility] ICD-LEADIMPEDANCEAT RIAL 709 ohm [facility] ICD-Percent Pacing (Atrial) 5 % [facility] ICD-Percent Pacing (Vent) 1 % [facility] ICD-Shocks Aborted (Vent) 0 [facility] [id number] D 0 [facility] ICD-SHOCKSABORTED 0 [facility] ICD-SHOCKSDELIVERED VENTRICULAR 0 [facility] ICD-Ventricular Fibrillation 0 [facility] Lead Impedance (RV) 416 ohm [facility] Lead Impedance High Voltage 47 ohm [facility] Lead1 Mfg BSX [facility] Lead2 Mfg BSX [facility] Location RV [facility] Location RA [facility] Lower Rate (bpm) 50 {beats}/min [facility] Max Sensor Rate (bpm) 130 {beats}/min [facility] MDT_PROG_TACHY_ZONE _DETECTIONS_STATUS ENABLED [facility] Model D142 INOGEN [facility] Model 0675 Amasa 4-Front [facility] Model 7741 Ingevity MRI [facility] Pacing Mode DDDR [facility] Serial Number [id number] [facility] Serial Number [id number] [facility] Serial Number [id number] [facility] Test Charge Energy 23 J [facility] Test Charge Time 10.1 s [facility] Therapy Status (Vent) Enabled [facility] Thresh RA Capture Amplitude (volts) 0.6 V [facility] Thresh RA Capture Duration (ms) 0.5 ms [facility] Thresh RV Capture Amplitude (VOLTS) 0.4 V [facility] Thresh RV Capture Duration (MS) 0.5 ms [facility] Tracking Rate (bpm) 130 {beats}/min [facility] VF Zone Detection Interval 250 ms [facility] VF Zone Therapy Configuration 1 ATP(s) + 8 Shock(s) [facility] No Panel Informationon 05-08 BLANK _ [facility] ICD-ATRIALTACHYCARD IA 0 [facility] ICD-Fast Ventricular Tachycardia 0 [facility] Implant Date 03/24/2019 [facility] ICD REMOTE CHECKon 2 AV Delay Adaptive Paced Minimum (ms) 200 ms [facility] AV Delay Adaptive Sensed Minimum (ms) 170 ms [facility] Bj RA Pacing Amplitude (volts) 2 V [facility] Bj RA Pacing Polarity BI [facility] Bj RA Pacing Pulse Width (ms) 0.5 ms [facility] Bj RA Sensing Amplitude (mvolts) 0.25 mV [facility] Bj RA Sensing Polarity BI [facility] Bj RV Pacing Amplitude (volts) 2 V [facility] Bj RV Pacing Polarity BI [facility] Bj RV Pacing Pulse Width (ms) 0.5 ms [facility] Bj RV Sensing Amplitude (mvolts) 0.3 mV [facility] Bj RV Sensing Polarity BI [facility] Detection Configuration (Vent) 2 - Zone [facility] FastVT_Detection Interval 250 ms [facility] FastVT_Therapy Configuration 1 ATP(s) + 8 Shock(s) [facility] ICD FastVT DetectionStatus ENABLED [facility] ICD-AMS EPISODES 170 {beats}/min [facility] ICD-ATP Episodes (Vent) 0 [facility] ICD-ATRIALFIBRILLAT ION 19 [facility] ICD-ATRIALTACHYCARD IA 19 [facility] ICD-ATRIALTACHYCARD IA 4 [facility] ICD-Device Mfg BSX [facility] ICD-Fast Ventricular Tachycardia 4 [facility] ICD-LEADIMPEDANCEAT RIAL 734 ohm [facility] ICD-Percent Pacing (Atrial) 6 % [facility] ICD-Percent Pacing (Vent) 1 % [facility] ICD-Shocks Aborted (Vent) 0 [facility] PRP-SMETSV-SHDCDDRV D 0 [facility] ICD-SHOCKSABORTED 0 [facility] ICD-SHOCKSDELIVERED VENTRICULAR 0 [facility] ICD-Ventricular Fibrillation 0 [facility] Lead Impedance (RV) 427 ohm [facility] Lead Impedance High Voltage 48 ohm [facility] Lead1 Mfg BSX [facility] Lead2 Mfg BSX [facility] Location RV [facility] Location RA [facility] Lower Rate (bpm) 50 {beats}/min [facility] Max Sensor Rate (bpm) 130 {beats}/min [facility] MDT_PROG_TACHY_ZONE _DETECTIONS_STATUS ENABLED [facility] Model D142 INOGEN [facility] Model 0675 Amasa 4-Front [facility] Model 7741 Ingevity [facility] Pacing Mode DDDR [facility] Serial Number [id number] [facility] Serial Number [id number] [facility] Serial Number [id number] [facility] Test Charge Energy [address] [facility] Test Charge Time [address] [facility] Therapy Status (Vent) Enabled [facility] Thresh RA Capture Amplitude (volts) 0.6 V [facility] Thresh RA Capture Duration (ms) 0.5 ms [facility] Thresh RV Capture Amplitude (VOLTS) 0.4 V [facility] Thresh RV Capture Duration (MS) 0.5 ms [facility] Tracking Rate (bpm) 130 {beats}/min [facility] VF Zone Detection Interval 250 ms [facility] VF Zone Therapy Configuration 1 ATP(s) + 8 Shock(s) [facility] No Panel Informationon 02-06 BLANK _ [facility] ICD-ATRIALTACHYCARD IA 0 [facility] ICD-Fast Ventricular Tachycardia 0 [facility] Implant Date 03/24/[address] [facility] [address] Chest W contrast [place] IMPRESSION: 1. [...] any questions regarding this interpretation, please call [phone]. If you are unable to reach us at the number above, please feel free to contact [facility] eRadiology at [phone]. DIVISION OF RADIOLOGY * * *Final Report* * * DATE OF EXAM: Sep 13 2021 3:08PM [facility] 0539 - CT CHEST W IVCON [...] nodules measuring less than 0.5 cm, with telemarketing representative examples detailed as follows on series [...] No abnormality in the imaged upper abdomen. Dorr Operator (topogram) images: No additional findings. DIVISION OF RADIOLOGY Provider, [facility] Jassi [facility] - 09/13/2021 * * *Final Report* * * DATE OF EXAM: Sep 13 2021 3:08PM [facility] 0539 - CT CHEST W IVCON [...] nodules measuring less than 0.5 cm, with telemarketing representative examples detailed as follows on series [...] No abnormality in the imaged upper abdomen. Dorr Operator (topogram) images: No additional findings. IMPRESSION IMPRESSION: [...] any questions regarding this interpretation, please call [phone]. If you are unable to reach us at the number above, please feel free to contact [facility] eRadiology at [phone]. [facility] Radiology Study observation (narrative) [facility] CT Chest W contrast IVOrdere d By: [facility] Provider on 09-13-2021 [facility] C [place] 12-23-2018 Wound Culture Microbiology PROCEDURE: [...] Locations R1: This test was performed at: [facility], [address] [place] [address], [address] , [facility] Comment on above: Performed By: #### 2 [id number] #### [facility] [address] [place] [address] Coding Summary.on 12-23-2018 Coding Summary. CODING DATE: 019 FINAL [facility] STATUS: Home (Routine DC) PAYOR: Medicare ADMIT [...] CphT Date Saved: 12/23/2018 01:25 pm Normal [facility] Vital Signs Date Time Vital Sign Value Performing Clinician Facility 08-19-2024 13:26-0500 Body height 182.9 cm Carmela Fernandes MD Work Phone: [facility] 08-19-2024 13:26-0500 Body mass index (BMI) [Ratio] 23.06 kg/m2 Carmela Fernandes MD Work Phone: [facility] 08-19-2024 13:26-0500 Body weight 77.11 kg Carmela Fernandes MD Work Phone: [facility] 08-19-2024 13:26-0500 Diastolic blood pressure 56 mm[Hg] Carmela Fernandes MD Work Phone: [facility] 08-19-2024 13:26-0500 Heart rate 78 /min Carmela Fernandes MD Work Phone: [facility] 08-19-2024 13:26-0500 SaO2% (BldA) [Mass fraction] 97 % Carmela Fernandes MD Work Phone: [facility] Comment on above: 08-19-2024 13:26-0500 Systolic blood pressure 94 mm[Hg] Carmela Howell Work Phone: [facility] 08-19-2024 10:19-0500 Body height 182.9 cm Nj Wie MD Work Phone: [facility] 08-19-2024 10:19-0500 Body mass index (BMI) [Ratio] 23.06 kg/m2 Nj Wei MD Work Phone: [facility] 08-19-2024 10:19-0500 Body weight 77.11 kg Nj Wei MD Work Phone: [facility] 08-19-2024 10:19-0500 Diastolic blood pressure 56 mm[Hg] Nj gagnon MD Work Phone: [facility] 08-19-2024 10:19-0500 Heart rate 80 /min Nj Wei MD Work Phone: [facility] 08-19-2024 10:19-0500 Systolic blood pressure 108 mm[Hg] Nj Wei MD Work Phone: [facility] 03-31-2024 13:09-0400 Body mass index (BMI) [Ratio] 21.44 kg/m2 ARACELI Andrade MD Work Phone: [facility] 03-31-2024 13:09-0400 Body temperature 97.3 [degF] ARACELI Andrade MD Work Phone: [facility] 03-31-2024 13:09-0400 Body weight 79.9 kg ARACELI Andrade MD Work Phone: [facility] 03-31-2024 13:09-0400 Diastolic blood pressure 70 mm[Hg] ARACELI Andrade MD Work Phone: [facility] 03-31-2024 13:09-0400 Heart rate 67 /min ARACELI Andrade MD Work Phone: [facility] 03-31-2024 13:09-0400 Respiratory rate 16 /min ARACELI Andrade MD Work Phone: [facility] 03-31-2024 13:09-0400 SaO2% (BldA) [Mass fraction] 97 % ARACELI Andrade MD Work Phone: [facility] 03-31-2024 13:09-0400 Systolic blood pressure 115 mm[Hg] ARACELI Andrade MD Work Phone: [facility] 03-30-2024 14:56-0400 Body height 193 cm Efren Brady MD Work Phone: [facility] 03-30-2024 14:56-0400 Body mass index (BMI) [Ratio] 20.69 kg/m2 Efren Brday MD Work Phone: [facility] 03-30-2024 14:56-0400 Body weight 77.11 kg Efren Brady MD Work Phone: [facility] 03-30-2024 14:56-0400 Diastolic blood pressure 69 mm[Hg] Efren Brady MD Work Phone: [facility] 03-30-2024 14:56-0400 Heart rate 66 /min Efren Brady MD Work Phone: [facility] 03-30-2024 14:56-0400 Systolic blood pressure 125 mm[Hg] Efren Brady MD Work Phone: [facility] 03-04-2024 11:15-0400 SaO2% (BldA) [Mass fraction] 99 % SAM[facility] THOMPSON [facility] Comment on above: Order Comment: Specimen Type: ARTERIAL B LOOD SPECIMENOrdering Facility: [facility] Address: [address] [place] [address] Performed By: #### A LLMG ####[facility] LABCLIA [id number] [place] [address] [place] 01-10-2024 10:58-0400 Diastolic blood pressure 78 mm[Hg] ARACELI Fernandes MD Work Phone: [facility] 01-10-2024 10:58-0400 Systolic blood pressure 122 mm[Hg] ARACELI Fernandes MD Work Phone: [facility] 01-10-2024 10:55-0400 Body height 182.9 cm ARACELI Fernandes MD Work Phone: [facility] 01-10-2024 10:55-0400 Body mass index (BMI) [Ratio] 22.51 kg/m2 ARACELI Fernandes MD Work Phone: [facility] 01-10-2024 10:55-0400 Body weight 75.3 kg ARACELI Fernandes MD Work Phone: [facility] 01-10-2024 10:55-0400 Heart rate 88 /min ARACELI Fernandes MD Work Phone: [facility] 01-10-2024 10:55-0400 Respiratory rate 14 /min ARACELI Fernandes MD Work Phone: [facility] 01-10-2024 10:55-0400 SaO2% (BldA) [Mass fraction] 97 % ARACELI Fernandes MD Work Phone: [facility] 12-26-2023 12:00-0400 Body height 182.9 cm Efren Brady MD Work Phone: [facility] 12-26-2023 12:00-0400 Body weight 77.11 kg Efren Brady MD Work Phone: [facility] 12-26-2023 12:00-0400 Diastolic blood pressure 64 mm[Hg] Efren Brady MD Work Phone: [facility] 12-26-2023 12:00-0400 Heart rate 78 /min Efren Brady MD Work Phone: [facility] 12-26-2023 12:00-0400 Respiratory rate 12 /min Efren Brady MD Work Phone: [facility] 12-26-2023 12:00-0400 SaO2% (BldA) [Mass fraction] 97 % Efren Brady MD Work Phone: [facility] 12-26-2023 12:00-0400 Systolic blood pressure 128 mm[Hg] Efren Brady MD Work Phone: [facility] 12-12-2023 13:38-0400 Body height 182.9 cm Carmelina Mayor FOLDER OPERATOR.MILK INSPECTOR Work Phone: [facility] 12-12-2023 13:38-0400 Body weight 75.3 kg Carmelina Mayor FOLDER OPERATOR.MILK INSPECTOR Work Phone: [facility] 12-12-2023 13:38-0400 Diastolic blood pressure 76 mm[Hg] Carmelina Mayor FOLDER OPERATOR.MILK INSPECTOR Work Phone: [facility] 12-12-2023 13:38-0400 Heart rate 81 /min Carmelina Mayor FOLDER OPERATOR.MILK INSPECTOR Work Phone: [facility] 12-12-2023 13:38-0400 Respiratory rate 18 /min Carmelina Mayoesperanza FOLDER OPERATOR.MILK INSPECTOR Work Phone: [facility] 12-12-2023 13:38-0400 SaO2% (BldA) [Mass fraction] 97 % Carmelina Yoderr FOLDER OPERATOR.MILK INSPECTOR Work Phone: [facility] 12-12-2023 13:38-0400 Systolic blood pressure 117 mm[Hg] Carmelina Yoderr FOLDER OPERATOR.MILK INSPECTOR Work Phone: [facility] 10-29-2023 11:24-0500 Body height 182.9 cm Virgil Carrillo MD Work Phone: [facility] 10-29-2023 11:24-0500 Body weight 80.29 kg Virgil Carrillo MD Work Phone: [facility] 10-29-2023 11:24-0500 Diastolic blood pressure 62 mm[Hg] Virgil Carrillo MD Work Phone: [facility] 10-29-2023 11:24-0500 Heart rate 72 /min Virgil Carrillo MD Work Phone: [facility] 10-29-2023 11:24-0500 Respiratory rate 12 /min Virgil Carrillo MD Work Phone: [facility] 10-29-2023 11:24-0500 SaO2% (BldA) [Mass fraction] 98 % Virgil Carrillo MD Work Phone: [facility] 10-29-2023 11:24-0500 Systolic blood pressure 108 mm[Hg] Virgil Carrillo MD Work Phone: [facility] 04-26-2023 15:08-0400 Body height 182.9 cm Zahra Pierre MD Work Phone: [facility] 04-26-2023 15:08-0400 Body weight 83.92 kg Zhara Pierre MD Work Phone: [facility] 04-26-2023 15:08-0400 Diastolic blood pressure 62 mm[Hg] Zahra Pierre MD Work Phone: [facility] 04-26-2023 15:08-0400 Heart rate 73 /min Zahra Pierre MD Work Phone: [facility] 04-26-2023 15:08-0400 Respiratory rate 12 /min Zahra Pierre MD Work Phone: [facility] 04-26-2023 15:08-0400 SaO2% (BldA) [Mass fraction] 98 % Zahra Pierre MD Work Phone: [facility] 04-26-2023 15:08-0400 Systolic blood pressure 116 mm[Hg] Zahra Pierre MD Work Phone: [facility] 10-25-2022 15:44-0500 Body height 182.9 cm Zahra Pierre MD Work Phone: [facility] 10-25-2022 15:44-0500 Body weight 83.92 kg Zahra Pierre MD Work Phone: [facility] 10-25-2022 15:44-0500 Diastolic blood pressure 66 mm[Hg] Zahra Pierre MD Work Phone: [facility] 10-25-2022 15:44-0500 Heart rate 74 /min Zahra Pierre MD Work Phone: [facility] 10-25-2022 15:44-0500 SaO2% (BldA) [Mass fraction] 98 % Zahra Pierre MD Work Phone: [facility] 10-25-2022 15:44-0500 Systolic blood pressure 116 mm[Hg] Zahra Pierre MD Work Phone: [facility] 10-02-2022 13:10-0500 Body temperature 96.69 [degF] ARACELI Andrade MD Work Phone: [facility] 10-02-2022 13:10-0500 Body weight 86.18 kg ARACELI Andrade MD Work Phone: [facility] 10-02-2022 13:10-0500 Diastolic blood pressure 71 mm[Hg] ARACELI Andrade MD Work Phone: [facility] 10-02-2022 13:10-0500 Heart rate 66 /min ARACELI Andrade MD Work Phone: [facility] 10-02-2022 13:10-0500 Respiratory rate 18 /min ARACELI Andrade MD Work Phone: [facility] 10-02-2022 13:10-0500 SaO2% (BldA) [Mass fraction] 98 % ARACELI Andrade MD Work Phone: [facility] 10-02-2022 13:10-0500 Systolic blood pressure 113 mm[Hg] ARACELI Andrade MD Work Phone: [facility] 09-03-2022 11:35-0500 Body height 182.9 cm John Jefferson MD Work Phone: [facility] 09-03-2022 11:35-0500 Body temperature 97.9 [degF] John Jefferson MD Work Phone: [facility] 09-03-2022 11:35-0500 Body weight 84.01 kg John Jefferson MD Work Phone: [facility] 09-03-2022 11:35-0500 Diastolic blood pressure 78 mm[Hg] John Jefferson MD Work Phone: [facility] 09-03-2022 11:35-0500 Heart rate 82 /min John Jefferson MD Work Phone: [facility] 09-03-2022 11:35-0500 Respiratory rate 18 /min John Jefferson MD Work Phone: [facility] 09-03-2022 11:35-0500 SaO2% (BldA) [Mass fraction] 98 % John Jefferson MD Work Phone: [facility] 09-03-2022 11:35-0500 Systolic blood pressure 133 mm[Hg] John Jefferson MD Work Phone: [facility] 06-06-2022 14:32-0400 Body height 182.9 cm Zahra Pierre MD Work Phone: [facility] 06-06-2022 14:32-0400 Body weight 76.66 kg Zahra Pierre MD Work Phone: [facility] 06-06-2022 14:32-0400 Diastolic blood pressure 63 mm[Hg] Zahra Pierre MD Work Phone: [facility] 06-06-2022 14:32-0400 Heart rate 71 /min Zahra Pierre MD Work Phone: [facility] 06-06-2022 14:32-0400 SaO2% (BldA) [Mass fraction] 97 % Zahra Pierre MD Work Phone: [facility] 06-06-2022 14:32-0400 Systolic blood pressure 101 mm[Hg] Zahra Pierre MD Work Phone: [facility] 12-11-2021 13:58-0400 Body temperature 97.11 [degF] ARACELI Andrade MD Work Phone: [facility] 12-11-2021 13:58-0400 Body weight 82.1 kg ARACELI Andrade MD Work Phone: [facility] 12-11-2021 13:58-0400 Diastolic blood pressure 78 mm[Hg] ARACELI Andrade MD Work Phone: [facility] 12-11-2021 13:58-0400 Heart rate 80 /min ARACELI Andrade MD Work Phone: [facility] 12-11-2021 13:58-0400 Respiratory rate 18 /min ARACELI Andrade MD Work Phone: [facility] 12-11-2021 13:58-0400 SaO2% (BldA) [Mass fraction] 99 % ARACELI Andrade MD Work Phone: [facility] 12-11-2021 13:58-0400 Systolic blood pressure 130 mm[Hg] ARACELI Andrade MD Work Phone: [facility] Encounters Encounter Date Encounter Type Care Provider Facility Start: 09-10-2024 End: 09-10-2024 ambulatory SAMM THOMPSON Facility:[facility] Start: 09-10-2024 End: 09-11-2024 Telephone encounter Carmela Fernandes MD Work Phone: Cardiology Comment on above: Advice Only Start: 09-07-2024 End: 09-07-2024 Telephone encounter Nj Wei MD Work Phone: Cardiology Comment on above: Patient Update Start: 09-03-2024 End: 09-03-2024 Telephone encounter Nj Wei MD Work Phone: Cardiology Start: 08-31-2024 End: 08-31-2024 ambulatory CARMELA EFRNANDES Facility:[facility] Start: 08-28-2024 End: 08-28-2024 Telephone encounter Nj [...] acute systolic (HCC); Atherosclerotic heart disease of [place]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); Carotid stenosis, 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, left; 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 pectoris; Acute on chronic systolic congestive heart failure (HCC); S/P CABG (coronary artery bypass graft); Paroxysmal atrial fibrillation (HCC) Amaurosis fugax (Ami sandeep Dx); Heart failure, acute systolic (HCC); Acute on chronic systolic congestive heart failure (HCC); PVD (peripheral vascular disease) (HCC); S/P CABG (coronary artery bypass graft) Start: 08-19-2024 ambulatory [place] WEI Facili ty:[facility] Start: 08-19-2024 End: 08-19-2024 Subsequent hospital visit by physician [facility] Work Phone: Cardiology Comment on above: Pacemaker reprogramm ing/check [Z45.018] Start: 08-19-2024 End: 08-19-2024 ambulatory [facility] Work Phone: Cardiology Comment on above: Holter Monitor Appli cation (12-lead 48-HR) Start: 08-18-2024 End: 08-18-2024 Orders Only Luís Skinner APRN.MILK INSPECTOR Work Phone: Neurology [facility] Comment on above: Carotid stenosis, sy mptomatic [...] Evaluation and management of inpatient SAMM THOMPSON Facility:[facility] Start: 07-21-2024 End: 07-26-2024 Evaluation and management of inpatient LEVAR MOORE Facility:[facility] Start: 07-21-2024 End: 07-21-2024 ambulatory Carmela Fernandes MD Work Phone: Cardiology Comment on above: labs - urgent Start: 07-15-2024 ambulatory [facility] Start: 07-13-2024 [facility] Start: 07-09-2024 End: 07-09-2024 [facility] Start: 07-08-2024 End: 07-08-2024 Clinical Support [facility] Start: 07-06-2024 End: 07-06-2024 [facility] Start: 07-02-2024 End: 07-02-2024 Clinical Support [facility] Start: 07-01-2024 End: 07-01-2024 Clinical Support [facility] Start: 06-29-2024 End: 06-29-2024 Clinical Support [facility] Start: 06-25-2024 End: 06-25-2024 [facility] Start: 06-24-2024 End: 06-24-2024 Clinical Support [facility] Comment on above: S/P AVR (aortic valv e replacement) Start: 06-23-2024 End: 06-23-2024 [facility] Start: 06-19-2024 End: 06-19-2024 Refill Carmela Fernandes MD Work Phone: Cardiology Comment on above: Rx Refills Start: 06-15-2024 End: 06-16-2024 Refill Carmela Fernandes MD Work Phone: Cardiology Comment on above: Rx Refills Start: 06-10-2024 End: 06-10-2024 Refill Sandrine Arteaga MD Work Phone: [place] [phone] Comment on above: Refill Request Start: 06-02-2024 [...] Follow Up Start: 05-14-2024 End: 05-17-2024 ambulatory [facility] Start: 05-13-2024 End: 05-17-2024 ambulatory [facility] Start: 05-11-2024 End: 05-17-2024 ambulatory [facility] Start: 05-09-2024 End: 05-16-2024 Evaluation and management of inpatient LUKE LAFFIN Facility:[facility] Start: 05-06-2024 End: 05-09-2024 Evaluation and management of inpatient FRANARTI LEES Facility:[facility] Start: 05-06-2024 End: 05-17-2024 ambulatory [facility] Start: 05-06-2024 End: 05-08-2024 Telephone encounter Paulina Fernandes MD Work Phone: Cardiology Comment on above: Follow Up Start: 05-06-2024 End: 05-17-2024 ambulatory [facility] Start: 05-04-2024 End: 05-17-2024 ambulatory [facility] Start: 04-30-2024 ambulatory Allyn Katz RN [facility] Start: 04-30-2024 Patient encounter procedure Allyn Katz RN [facility] Start: 04-29-2024 End: 05-17-2024 ambulatory Allyn Katz RN [facility] Start: 04-29-2024 Patient encounter procedure Allyn Katz RN [facility] Start: 04-27-2024 End: 04-27-2024 ambulatory [facility] Start: 04-23-2024 End: 05-17-2024 ambulatory [facility] Start: 04-22-2024 End: 05-17-2024 ambulatory [facility] Start: 04-20-2024 End: 04-20-2024 [facility] Start: 04-16-2024 End: 04-16-2024 ambulatory [facility] Start: 04-15-2024 End: 04-15-2024 [facility] Start: 04-13-2024 End: 04-13-2024 ambulatory [facility] Start: 04-09-2024 End: 04-09-2024 [facility] Start: 04-08-2024 End: 04-16-2024 ambulatory [facility] Start: 04-06-2024 End: 04-06-2024 ambulatory [facility] Facility:[facility] Start: 04-06-2024 End: 04-16-2024 ambulatory [facility] Start: 04-03-2024 Telephone encounter Luís warner APRN.MILK INSPECTOR Work Phone: [facility] Comment on above: Medication Problem Start: 04-01-2024 Telephone encounter Crys SHEEHAN H ematology/Oncology Start: 04-01-2024 End: 04-16-2024 [facility] Start: 03-31-2024 End: 03-31-2024 Telemedicine consultation with patient Paulina Fernandes MD Work Phone: Cardiology Start: 03-31-2024 End: 03-31-2024 ambulatory Paulina Fernandes MD Work Phone: Cardiology Comment on above: 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coronary bypass graft of [place] heart without angina pectoris (Primary Dx); Chronic systolic heart failure (HCC); S/P CABG (coronary artery bypass graft); Non-rheumatic mitral regurgitation; Severe mitral regurgitation Start: 03-31-2024 End: 03-31-2024 Patient encounter procedure Yung Andrade MD Work Phone: Radiation Oncology Comment on above: History of prostate cancer (Primary Dx) Start: 03-30-2024 End: 03-30-2024 [facility] Facility:[facility] Start: 03-30-2024 End: 03-30-2024 [facility] Facility:[facility] Start: 03-30-2024 End: 03-30-2024 Patient encounter procedure Efren Brady MD Work Phone: Cardiology Comment on above: Cardiomyopathy, isch emic (Primary Dx); S/P mitral valve clip implantation; Stage 3b chronic kidney disease (HCC) Start: 03-30-2024 Telephone encounter Efren Brady MD Work Phone: Cardiology Comment on above: Medication Assistanc e Program Start: 03-30-2024 End: 03-30-2024 [facility] Facility:[facility] Start: 03-30-2024 End: 04-16-2024 [facility] Start: 03-26-2024 End: 03-26-2024 [facility] Start: 03-25-2024 End: 03-25-2024 [facility] Start: 03-24-2024 End: 03-24-2024 [facility] Facility:[facility] Start: 03-23-2024 End: 03-23-2024 ambulatory SAMM THOMPSON [facility] Start: 03-18-2024 End: 03-18-2024 ambulatory Luís Skinner MILK INSPECTOR Work Phone: Neurology [facility] Comment on above: Amaurosis fugax (Ami sandeep Dx); Carotid stenosis, 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, left; Atrial fibrillation, unspecified type (HCC); Mixed hyperlipidemia; Essential hypertension Start: 03-18-2024 End: 03-18-2024 Telemedicine consultation with patient Luís Skinner ANAND.MILK INSPECTOR Work Phone: Neurology [facility] Start: 03-06-2024 ambulatory Gavi Chilrdess MD Work Phone: [facility] Start: 03-05-2024 End: 03-05-2024 Evaluation and management of inpatient GAVI CHILDRESS Facility:[facility] Start: 03-03-2024 End: 03-03-2024 Evaluation and management of inpatient GAVI CHILDRESS Facility:[facility] Start: 03-02-2024 End: 03-02-2024 Evaluation and management of inpatient Susi Whitehead OD Work Phone: Ophthalmology Comment on above: Cerebrovascular acci 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) (Primary Dx); Cataract, nuclear sclerotic senile, bilateral Start: 03-02-2024 End: 03-02-2024 ambulatory [facility] Start: 03-01-2024 Evaluation and management of inpatient JEANINE MILLARD Facility:[facility] Start: 02-28-2024 Telephone encounter Neurology Located within [facility] Comment on above: Patient Update (Pre admission ) Start: 02-27-2024 Chart abstracting Aravind Arriaga MD Work Phone: Neurosurgery Comment on above: Amaurosis fugax Start: 02-27-2024 Telephone encounter Shannon Mcnair APRN.MILK INSPECTOR Work Phone: Cardiothoracic Comment on above: Patient Update Start: 02-26-2024 End: 03-01-2024 Emergency department patient visit ZAHRA LEON [facility] Start: 2024 End: 2024 Evaluation and management of inpatient PRISCILLA RAI Facility:[facility] Start: 02-17-2024 End: 02-17-2024 Evaluation and management of inpatient Isreal Rain MD Work Phone: Dentistry Comment on above: Dental caries (Prima ry Dx); Pre-operative clearance; Non-rheumatic mitral regurgitation; Severe mitral regurgitation Start: 02-17-2024 End: 02-17-2024 Preoperative state Isreal Rain MD Work Phone: [facility] Work Phone: Start: 02-17-2024 End: 02-17-2024 Orders Only Zuleyma Tineo FOLDER OPERATOR.MILK INSPECTOR Work Phone: Cardiology Comment on above: Atherosclerotic hear t disease of [place]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) (Primary Dx) Start: 02-17-2024 End: 03-16-2024 ambulatory [facility] Start: 02-15-2024 End: 2024 Evaluation and management of inpatient PRISCILLA RAI Facility:[facility] Start: 02-14-2024 ambulatory [facility] Work Phone: Cardiology Comment on above: M-AZAEL [employer]ra[facility] ed Start: 02-13-2024 End: 02-13-2024 ambulatory Priscilla Rai FOLDER OPERATOR.MILK INSPECTOR Work Phone: Cardiology Comment on above: TMTT Meeting 02/13 Start: 02-13-2024 End: 02-15-2024 ambulatory Marce Arana FOLDER OPERATOR.SALVAGE DIVER Work Phone: Cardiology Start: 02-12-2024 Telephone encounter Marce truong FOLDER OPERATOR.SALVAGE DIVER Work Phone: Cardiology Comment on above: Patient Update Start: 02-12-2024 End: 02-15-2024 ambulatory [facility] Start: 02-11-2024 Telephone encounter Research N lisae [facility] Work Phone: Cardiology Start: 02-05-2024 End: 02-05-2024 Nursing evaluation of patient and report [facility] Work Phone: Cardiology Comment on above: EMPOWER Trial IRB# [id number] Screening visit (Primary Dx) Start: 02-05-2024 End: 02-15-2024 [facility] Start: 02-05-2024 End: 02-05-2024 Patient encounter procedure [facility] Work Phone: [facility] Start: 02-05-2024 End: 02-15-2024 [facility] Start: 02-03-2024 End: 02-03-2024 [facility] Start: 01-30-2024 End: 01-30-2024 Nursing evaluation of patient and report [facility] Work Phone: Cardiology Comment on above: [id number] Empower Study (Primary Dx) Severe mitral regurg itation (Primary Dx); Examination of participant in clinical trial; SANTILLAN (dyspnea on exertion) Start: 01-30-2024 Patient encounter procedure Adnrés Savage MD Work Phone: [facility] Start: 01-30-2024 End: 01-30-2024 [facility] Start: 01-30-2024 Encounter for examination for normal comparison and control in clinical research program [facility] Start: 01-30-2024 End: 01-30-2024 Patient entered into trial [facility] Work Phone: [facility] Start: 01-29-2024 End: 01-29-2024 [facility] Start: 01-28-2024 Orders Only Virgil Howell Work Phone: Cardiology Comment on above: Severe mitral regurg itation (Primary Dx); Status post implantation of mitral valve leaflet clip Start: 01-27-2024 End: 01-27-2024 [facility] Start: 01-23-2024 End: 01-23-2024 [facility] Start: 01-22-2024 End: 01-22-2024 [facility] Start: 01-20-2024 End: 01-20-2024 [facility] Start: 01-16-2024 End: 01-16-2024 [facility] Start: 01-15-2024 End: 01-15-2024 [facility] Start: 01-14-2024 Telephone encounter Paulina Fernandes MD Work Phone: Cardiology Comment on above: Medication Question (Patient is asking if after reviewing labs are there any medication changes?) Start: 01-13-2024 End: 01-13-2024 [facility] Start: 01-10-2024 End: 01-10-2024 [facility] Facility:[facility] Start: 01-10-2024 End: 01-10-2024 Nursing evaluation of patient and report [facility] Work Phone: Cardiology Comment on above: IRB 18-600 Empower A ssessment of the CARILLON Mitral Contour System in Treating Functional Mitral Regurgitation Associated with Heart Failure PI: Hussein (Primary Dx) Start: 01-10-2024 End: 01-10-2024 Patient entered into trial [facility] Work Phone: [facility] Start: 01-10-2024 End: 01-10-2024 [facility] Facility:[facility] Start: 01-10-2024 End: 01-10-2024 Patient encounter procedure Paulina Fernandes MD Work Phone: Cardiology Comment on above: Atherosclerotic hear t disease of [place]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) (Primary Dx); Coronary artery disease involving coronary bypass graft of [place] heart with angina pectoris (HCC); Chronic systolic heart failure (HCC); S/P CABG (coronary artery bypass graft); Chronic 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); Acute on chronic clinical systolic heart failure (HCC); Stage 3b chronic kidney disease (HCC); Ischemic cardiomyopathy; Non-ischemic cardiomyopathy (HCC); Shortness of breath; Unspecified severe protein-calorie malnutrition (HCC) Start: 01-09-2024 End: 01-09-2024 [facility] Start: 01-08-2024 End: 01-08-2024 [facility] Start: 01-06-2024 End: 01-06-2024 [facility] Start: 01-02-2024 End: 01-02-2024 Nursing evaluation of patient and report [facility] Work Phone: Cardiology Comment on above: IRB 18-600 Loli Gagnon ssessment of the CARILLON Mitral Contour System in Treating Functional Mitral Regurgitation Associated with Heart Failure PI: Hussein (Primary Dx) Start: 01-02-2024 End: 01-02-2024 Patient entered into trial [facility] Work Phone: [facility] Start: 01-02-2024 End: 01-02-2024 [facility] Facility:[facility] Start: 01-02-2024 Telephone encounter Research N urse [facility] Work Phone: Cardiology Comment on above: Appointment; Patient Update Start: 01-02-2024 End: 01-02-2024 [facility] Start: 01-01-2024 End: 01-01-2024 [facility] Start: 01-01-2024 End: 01-01-2024 Nursing evaluation of patient and report [facility] Work Phone: Cardiology Comment on above: Study name: EMPOWER Trial IRB# [id number] (Primary Dx) Start: 01-01-2024 End: 01-01-2024 Patient entered into trial [facility] Work Phone: [facility] Start: 12-30-2023 End: 12-30-2023 ambulatory [facility] Start: 12-30-2023 End: 12-30-2023 Nursing evaluation of patient and report [facility] Work Phone: Cardiology Comment on above: IRB 18-600 Empower A ssessment of the CARILLON Mitral Contour System in Treating Functional Mitral Regurgitation Associated with Heart Failure PI: Hussein (Primary Dx) Start: 12-30-2023 End: 12-30-2023 Patient entered into trial [facility] Work Phone: [facility] Start: 12-26-2023 End: 12-26-2023 ambulatory Kristina Ceja APRN.MILK INSPECTOR Work Phone: Cardiology Comment on above: TMTT Meeting Start: 12-26-2023 End: 12-26-2023 Patient encounter procedure Efren Brady MD Work Phone: Cardiology Comment on above: Severe mitral regurg itation (Primary Dx); Cardiomyopathy, ischemic; S/P CABG (coronary artery bypass graft); Sore throat; Unspecified severe protein-calorie malnutrition (HCC) Start: 12-25-2023 End: 01-15-2024 ambulatory [facility] MARYVALEROSALIND [facility] Start: 12-25-2023 End: 01-15-2024 ambulatory [facility] Start: 12-22-2023 Follow-up encounter Rubén Carney ba, MD Work Phone: [facility] Start: 12-22-2023 ICD Remote F/U Rubén Howell Work Phone: [facility] Department Start: 12-19-2023 End: 12-19-2023 Clinical Support [facility] Exercise 1 [facility] - [facility]iac Re[facility] Start: 12-17-2023 Telephone encounter Virgil Pacheco nd, MD Work Phone: Cardiology Comment on above: Cardiac Rehab Start: 12-17-2023 End: 12-17-2023 ambulatory [facility] Start: 12-12-2023 End: 12-12-2023 Patient encounter procedure Carmelina Whaley Mayor SRINIVASAN Work Phone: Cardiology Comment on above: Mitral valve insuffi ciency, unspecified etiology (Primary Dx); HFrEF (heart failure with reduced ejection fraction) (HCC); SOB (shortness of breath); Hx of CABG; Coronary artery disease involving [place] coronary artery of [place] heart without angina pectoris; Essential hypertension Start: 12-12-2023 End: 12-12-2023 ambulatory CARMELINA MAYA Facility:[facility] Start: 12-02-2023 End: 12-02-2023 ambulatory [facility] Start: 11-26-2023 Telephone encounter Virgil Pacheco nd, MD Work Phone: Cardiology Comment on above: Patient Update Atherosclerosis of n ative coronary artery, unspecified whether angina present, unspecified whether [place] or transplanted heart (Primary Dx) Start: 11-25-2023 Follow-up encounter Rubén Carney ba, MD Work Phone: [facility] Start: 11-25-2023 ICD Remote F/U Rubén Howell Work Phone: [facility] Department Start: 11-22-2023 Evaluation and management of inpatient CHARU MARTIN [facility] Start: 11-21-2023 Evaluation and management of inpatient JUAN PABLO TAVARES [facility] Start: 11-19-2023 End: 11-25-2023 Evaluation and management of inpatient [facility] Start: 11-18-2023 End: 11-18-2023 ambulatory [facility] Start: 10-29-2023 End: 10-29-2023 Patient encounter procedure Virgil Carrillo MD Work Phone: Cardiology Comment on above: Chronic combined sys tolic and diastolic congestive heart failure (HCC) (Primary Dx); Coronary artery disease involving [place] coronary artery of [place] heart without angina pectoris; Essential hypertension; Hx of CABG; Mixed hyperlipidemia; Systolic heart failure, unspecified HF chronicity (HCC); 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 kidney disease, unspecified CKD stage, unspecified whether longterm insulin use (HCC); PVD (peripheral vascular disease) (HCC); Atherosclerotic heart disease of [place]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); Mitral valve insufficiency, unspecified etiology Start: 10-29-2023 End: 10-29-2023 ambulatory TIARRA LOPEZ Facility:[facility] Start: 10-29-2023 Encounter for preprocedural cardiovascular examination SAMM THOMPSON [facility] Start: 10-28-2023 End: 10-29-2023 [facility] Start: 10-23-2023 End: 10-23-2023 ambulatory RAJAT [facility] Start: 10-22-2023 End: 10-22-2023 ambulatory SAMM THOMPSON [facility] Start: 10-10-2023 End: 10-10-2023 [facility] Start: 10-01-2023 End: 10-01-2023 ambulatory Yung ANDRADE Facility:[facility] Start: 09-28-2023 Evaluation and management of inpatient [facility] Start: 09-27-2023 Evaluation and management of inpatient EHAB [facility] Start: 09-27-2023 End: 09-29-2023 Evaluation and management of inpatient SAMM THOMPSON [facility] Start: 09-24-2023 End: 09-24-2023 ambulatory SAMM THOMPSON Facility:[facility] Start: 08-27-2023 Telephone encounter Virgil Pacheco nd, [...] kidney disease, unspecified CKD stage, unspecified whether technician terminal and repeater insulin use (HCC) (Primary Dx); PVD (peripheral vascular disease) (HCC); Atherosclerotic heart disease of [place]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) Start: 02-21-2023 Follow-up encounter Rubén Carney ba, MD Work Phone: [facility] Start: 02-21-2023 ICD Remote F/U Rubén Howell Work Phone: [facility] Department Start: 02-08-2023 End: 02-09-[address] DURAN [facility] Facility: Start: 12-03-2022 Orders Only Zahra Pierre MD Work Phone: Cardiology Start: 11-29-2022 Patient encounter procedure John Jefferson MD Work Phone: Vascular Surg Dept Start: 11-29-2022 Telephone encounter John carrillo MD Work Phone: Vascular Surg Dept Comment on above: Surgery Cancelled Start: 11-06-2022 Follow-up encounter Rubén Carney ba, MD Work Phone: [facility] Start: 11-06-2022 ICD Remote F/U Rubén Howell Work Phone: [facility] Start: 10-31-2022 Telephone encounter John carrillo MD Work Phone: Vascular Surg Dept Comment on above: Appointment Start: 10-25-2022 End: 10-25-2022 Patient encounter procedure Zahra Pierre MD Work Phone: Cardiology Comment on above: 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[place] coronary artery of [place] heart without angina pectoris (Primary Dx); [...] (Primary Dx) Start: 09-18-2022 End: 12-31-2022 ambulatory [facility] Facility: Start: 09-12-2022 End: 09-13-[address] MALAIKA ANDRADE Facility:[facility] Start: 09-07-2022 Telephone encounter Zahra mata MD Work Phone: Cardiology Comment on above: Nm Pet Request Start: 09-06-2022 Orders Only Zahra Pierre MD Work Phone: Cardiology Comment on above: Chronic systolic hea rt failure (HCC) (Primary Dx); Coronary artery disease involving [place] coronary artery of [place] heart without angina pectoris Start: 09-03-2022 End: 09-03-2022 Patient encounter procedure John Jefferson MD Work Phone: Vascular Surg Dept Comment on above: 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[place] coronary artery of [place] heart without angina pectoris (Primary Dx); Heart failure, acute systolic (HCC); Mixed hyperlipidemia; Stenosis of left carotid artery; Cerebrovascular acci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); Chronic 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); Carotid stenosis, asymptomatic, bilateral Start: 08-30-2022 End: 08-31-2022 ambulatory [facility] Facility: Start: 08-07-2022 Follow-up encounter Rubén Carney ba, MD Work Phone: [facility] Start: 08-07-2022 ICD Remote F/U Rubén Howell Work Phone: [facility] Start: 08-03-2022 Orders Only John Howell Work Phone: Vascular Surg Dept Comment on above: Bilateral carotid ar annalee stenosis (Primary Dx) Start: 08-01-2022 Telephone encounter Samm Thompson MD Work Phone: [address] [place] [address] Comment on above: Appointment Start: 07-30-2022 Telephone encounter Samm Thompson MD Work Phone: [facility] Comment on above: Appointment Start: 07-25-2022 Telephone encounter Zahra mata MD Work Phone: Cardiology Comment on above: Received Outside Med ical Records Start: 07-23-2022 End: 07-24-2022 [facility] Start: 07-18-2022 End: 07-19-[address] SAMM THOMPSON . Facility:[facility] Start: 06-27-2022 End: 06-28-[address] SAMM THOMPSON . Facility:[facility] Start: 06-27-2022 End: 06-28-[address] SAMM THOMPSON . Facility:[facility] Start: 06-18-2022 Encounter for [facility]procedural laboratory [facility] Start: 06-14-2022 End: 06-15-2022 Encounter [...] Evaluation and management of inpatient SHARON HOOKS Facility:[facility] Start: 05-16-2022 End: 05-17-2022 ambulatory SHARON HOOKS . Facility: Start: 05-14-2022 End: 05-15-[address] SAMM THOMPSON . Facility:[facility] Start: 05-08-2022 Follow-up encounter Rubén Carney ba, MD Work Phone: [facility] Start: 05-08-2022 ICD Remote F/U Rubén Howell Work Phone: [facility] Start: 04-26-2022 End: 04-26-2022 ambulatory Yung Andrade MD Work Phone: Radiation Oncology Comment on above: Malignant neoplasm o f prostate (HCC) (Primary Dx) Start: 04-26-2022 End: 04-26-2022 Telemedicine consultation with patient Yung Denilson Andrade MD Work Phone: [facility] Start: 02-06-2022 Follow-up encounter Rubén Carney ba, MD Work Phone: [facility] Start: 02-06-2022 ICD Remote F/U Rubén Howell Work Phone: [facility] Start: 01-15-2022 Orders Only Carlos Barone RN Dominick tology/Oncology Comment on above: Unspecified hypothyr oidism (Primary Dx); Hypercholesterolemia; Abnormal finding of blood chemistry, unspecified Start: 01-03-2022 Patient encounter procedure Yung Andrade MD Work Phone: [facility] Start: 01-03-2022 Radiation Oncology Note G Navin Andrade MD Work Phone: Radiation Oncology Comment on above: Completion Note Start: 12-18-2021 Patient encounter procedure Yung Andrade MD Work Phone: [facility] Start: 12-18-2021 Radiation Oncology Note Yung Andrade [...] Encounter for other preprocedural examination SAMM HOY [facility] Start: 04-30-2012 Patient encounter status ARACELI phillips MD Work Phone: [facility] Work Phone: Start: 04-28-2012 End: 05-01-2012 Preprocedural examination done Research [employer] Work Phone: [facility] Procedures Date Procedure Procedure Detail Performing Clinician Start: 08-19-2024 Prgrmg dev eval impl antable subq lead dfb system [facility] [place] Provider Start: 07-23-2024 Echocardiography DOUGLA S HOY Start: 07-22-2024 Antibody screen SAMM HOY Comment on above: Order Comment: Speci men Type: BLOOD SPECIMENOrdering Facility: [facility] Address: [address] [place] [address] Performed By: #### T SCR ####CC MAIN BLOOD BANKCLIA [id number] [address] Start: 05-14-2024 Colonoscopy SAMM HO Y Start: 05-14-2024 Antibody screen SAMM HOY Comment on above: Order Comment: Speci men Type: BLOOD SPECIMENOrdering Facility: [facility] Address: [address] [place] [address] Performed By: #### T SCR ####CC MAIN BLOOD BANKCLIA [id number] [address] [place] Start: 05-11-2024 Echocardiography DOUGLA S HOY Start: 05-10-2024 Antibody screen SAMM HOY Comment on above: Order Comment: Speci men Type: BLOOD SPECIMENOrdering Facility: [facility] Address: [address] [place] [address] Performed By: #### T SCR ####CC MAIN BLOOD BANKCLIA [id number] [address] [place] Start: 05-06-2024 Echocardiography DOUGLA S HOY Start: 03-30-2024 Echocardiography DOUGLA S HOY Start: 03-03-2024 Antibody screen SAMM HOY Comment on above: Order Comment: Speci men Type: BLOOD SPECIMENOrdering Facility: [facility] Address: [address] [place] [address] Performed By: #### T SCR ####CC MAIN BLOOD BANKCLIA [id number] [address] Start: 03-02-2024 Visual field xm uni/ bi w/interp extended exam Susi Whitehead OD Work Phone: Start: 2024 Echocardiography PARISLA S HOY Start: 02-16-2024 Antibody screen SAMM HOY Comment on above: Order Comment: Speci men Type: BLOOD SPECIMENOrdering Facility: [facility] Address: [address] [place] [address] Performed By: #### T SCR ####CC MAIN BLOOD BANKCLIA [id number] [address] Start: 02-05-2024 Echocardiography PARISLA S HOY [...] Phone: Start: 10-25-2022 Myocrd img pet prfuj mathematical statistician std rst&strs cncrnt ct Zahra Pierre MD Work Phone: Start: 10-25-2022 Myocrd img pet prfuj w/metab 2rtracer cncrnt ct Zahra Pierre MD Work Phone: Start: 10-25-2022 End: 10-25-2022 Gluc bld gluc mntr dev cleared fda spec home use [facility] Provider Start: 09-12-2022 End: 09-12-2022 PSA screening [facility] Provider Comment on above: Performed By: #### B MP, BNP #### [facility] [address] [place] [address] Dr. Silva Burnett Start: 08-07-2022 ICD REMOTE [...] bypass grafting Hx of CABG Carmelina Ramos FOLDER OPERATOR.MILK INSPECTOR Work Phone: History of coronary artery bypass [...] DTaP,Tdap and Td Vaccines (2 - Tdap) [facility] Start: 06-13-2030 Urine microalbumin profile [facility] Start: 10-25-2025 DIABETES SCREEN DIABETES SCREEN [facility] Start: 06-06-2025 DIABETES SCREEN DIABETES SCREEN [facility] Start: 04-19-2025 DIABETES SCREEN DIABETES SCREEN [facility] Start: 03-02-2025 Glaucoma screening Dilated Retinal Exam [facility] Start: 03-01-2025 End: 03-01-2025 Patient encounter procedure 03/01/2025 11:45 AM EDT Office Visit Cardiology [address] [place] [address] Nj Wei MD [address] [place] [address] Dx: PVC Cardiology Comment on above: Dx: PVC Start: 03-01-2025 End: 03-01-2025 Patient encounter procedure 03/01/2025 10:30 AM EDT Appointment Cardiology [address] [place], [place] [id number] Dx: PVC Cardiology Comment on above: Dx: PVC Start: 03-01-2025 End: 03-01-2025 ambulatory 03/01/2025 9:45 AM EDT Results Only Cardiology [address] [place] [id number] Dx: PVC Cardiology Comment on above: Dx: PVC Start: 02-25-2025 Adult BMI Screening Adult BMI Screening [facility] Start: 02-15-2025 Hepatitis B surface antibody level LDL Cholesterol [facility] Start: 01-15-2025 DIABETES SCREEN DIABETES SCREEN [facility] Start: 12-22-2024 End: 12-22-2024 ambulatory 12/22/2024 8:30 AM EDT [facility] [address] [place] [address] Carmela Fernandes MD [address] [place] [address] Acute on chronic systolic congestive heart failure Cardiology Comment on above: Acute on chronic systolic congestive hea rt failure Start: 12-02-2024 End: 12-02-2024 Patient encounter procedure 12/02/2024 3:00 PM EDT Office Visit Kidney Medicine [address] [place] [address] Rubi Douglas I, MD [address] [place] [address] CKD Kidney Medicine Comment on above: CKD Start: 11-09-2024 DIABETES SCREEN DIABETES SCREEN [facility] Start: 11-09-2024 Hemoglobin A1c measurement HbA1C [facility] Start: 10-07-2024 End: 10-07-2024 ambulatory 10/07/2024 2:00 PM EST [facility] [address] [place] [address] Tuyet Rodrigues APRN.MILK INSPECTOR [address] [place] [address] virtual f/u to review carotid ultrasound (luís on leave) [facility] Comment on above: virtual f/u to review carotid ultrasound (luís on leave) Start: 10-07-2024 End: 01-06-2025 TESTOSTERONE, FREE AND TOTAL TESTOSTERONE, FREE AND TOTAL Lab Routine History of prostate cancer Expected: 10/07/2024, Expires: 01/06/2025 [facility] Comment on above: Expected: 10/07/2024, Expires: Start: 10-05-2024 End: 10-05-2024 ambulatory 10/05/2024 12:00 PM EST Results Only Cardiology [address] [place] [address] Dx: Cardiomyopathy, ischemic Cardiology Comment on above: Dx: Cardiomyopathy, ischemic Start: 10-05-2024 End: 10-05-2024 Patient encounter procedure Vascular Medicine Comment on above: DX: Carotid stenosis, symptomatic w/o in farct, left Dx: Cardiomyopathy, ischemic US Carotid Bilateral Start: 10-01-2024 End: 12-31-2024 Prostate specific Ag [Mass/volume] in Serum or Plasma PROSTATE-SPECIFIC ANTIGEN DIAGNOSTIC Lab Routine History of prostate cancer Expected: 10/01/2024, Expires: 12/31/2024 [facility] Work Phone: Comment on above: Expected: 10/01/2024, Expires: Start: 09-29-2024 End: 09-29-2024 ambulatory 09/29/2024 4:00 PM EST Results Only Cardiology [address] [place] [address] PVC Cardiology Comment on above: PVC Start: 09-29-2024 End: 09-29-2024 Patient encounter procedure Radiation Oncology Comment on above: 6 month rv PVC Start: 09-28-2024 Hepatitis B surface antibody level LDL Cholesterol [facility] Start: 09-28-2024 End: 09-28-2024 ambulatory 09/28/2024 1:45 PM EST Results Only Cardiology [address] [place] [id number] Dx: Cardiomyopathy, ischemic Cardiology Comment on above: Dx: Cardiomyopathy, ischemic Start: 09-28-2024 End: 09-28-2024 Patient encounter procedure Cardiology Comment on above: Dx: Cardiomyopathy, ischemic Start: 09-22-2024 End: 09-22-2024 Patient encounter procedure 09/22/2024 1:15 PM EST Office Visit [facility] [address] [place] [address] [place] [address] lab [facility] Comment on above: lab Start: 09-11-2024 End: 12-11-2024 Basic metabolic 2000 panel - Serum or Plasma BASIC METABOLIC PANEL Lab Routine Chronic systolic heart failure (HCC) Expected: 09/11/2024, Expires: 12/11/2024 [facility] Work Phone: Comment on above: Expected: 09/11/2024, Expires: Start: 09-11-2024 End: 12-11-2024 Natriuretic peptide.B prohormone N-Terminal [Mass/volume] in Serum or Plasma NT PRO BNP Lab Routine Chronic systolic heart failure (HCC) Expected: 09/11/2024, Expires: 12/11/2024 [facility] Comment on above: Expected: 09/11/2024, Expires: Start: 09-07-2024 End: 09-07-2024 Patient encounter procedure 09/07/2024 2:45 PM EST Office Visit Cardiology [address] [place], [place] [id number] Carmela Fernandes MD [address] [place] [address] Main, Nurse Card Chf [address] [place] [address] DX: Acute on chronic systolic congestive heart failure Cardiology Comment on above: DX: Acute on chronic systolic congestive heart failure Start: 09-07-2024 End: 09-07-2024 ambulatory 09/07/2024 2:00 PM EST Results Only Main [place] [address] [address] [place] [address] DX: Acute on chronic systolic congestive heart failure [facility] Draw Station Comment on above: DX: Acute on chronic systolic congestive heart failure Start: 09-07-2024 End: 12-07-2024 Basic metabolic 2000 panel - Serum or Plasma BASIC METABOLIC PANEL Lab Routine Chronic systolic heart failure (HCC) Non-rheumatic mitral regurgitation Expected: 09/07/2024, Expires: 12/07/2024 [facility] Work Phone: Comment on above: Expected: 09/07/2024, Expires: Start: 09-07-2024 End: 12-07-2024 CBC panel - Blood by Automated count COMPLETE BLOOD COUNT Lab Routine Chronic systolic heart failure (HCC) Non-rheumatic mitral regurgitation Expected: 09/07/2024, Expires: 12/07/2024 [facility] Comment on above: Expected: 09/07/2024, Expires: Start: 09-07-2024 End: 12-07-2024 Natriuretic peptide.B prohormone N-Terminal [Mass/volume] in Serum or Plasma NT PRO BNP Lab Routine Chronic systolic heart failure (HCC) Non-rheumatic mitral regurgitation Expected: 09/07/2024 (Approximate), Expires: 12/07/2024 [facility] Comment on above: Expected: 09/07/2024 (Approximate), Expi res: 12/07/2024 Start: 08-31-2024 End: 08-31-2024 ambulatory 08/31/2024 2:00 PM EST Results Only [facility] [address] [place] [address] [place] [address] DX: Acute on chronic systolic congestive heart failure [facility] Comment on above: DX: Acute on chronic systolic congestive heart failure Start: 08-27-2024 End: 11-26-2024 Basic metabolic 2000 panel - Serum or Plasma BASIC METABOLIC PANEL Lab Routine Heart failure, acute systolic (HCC) Acute on chronic systolic congestive heart failure (HCC) Carotid stenosis, 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, left Expected: 08/27/2024, Expires: 11/26/2024 [facility] Comment on above: Expected: 08/27/2024, Expires: Start: 08-27-2024 End: 11-26-2024 CBC W Auto Differential panel - Blood COMPLETE BLOOD COUNT AND DIFFERENTIAL Lab Routine Heart failure, acute systolic (HCC) Acute on chronic systolic congestive heart failure (HCC) Carotid stenosis, 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, left Expected: 08/27/2024, Expires: 11/26/2024 [facility] Comment on above: Expected: 08/27/2024, Expires: Start: 08-27-2024 End: 11-26-2024 Natriuretic peptide.B prohormone N-Terminal [Mass/volume] in Serum or Plasma NT PRO BNP Lab Routine Heart failure, acute systolic (HCC) Acute on chronic systolic congestive heart failure (HCC) Carotid stenosis, 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, left Expected: 08/27/2024, Expires: 11/26/2024 [facility] Work Phone: Comment on above: Expected: 08/27/2024, Expires: 5 Start: 08-19-2024 End: 08-19-2024 Patient encounter procedure Cardiology Comment on above: Dx: PVC DX: Acute on chronic systolic congestive heart failure Start: 08-19-2024 End: 08-19-2024 ambulatory 08/19/2024 9:00 AM EST Results Only Cardiology [address] [place] [address] Dx: PVC Cardiology Comment on above: Dx: PVC Start: 08-17-2024 Hemoglobin A1c measurement HbA1C [facility] Start: 07-31-2024 End: 07-31-2024 Patient encounter procedure 07/31/2024 3:40 PM EST Office Visit Kidney Medicine [address] [place] [address] [place] [address] [place] [address] CKD Kidney Medicine Comment on above: CKD Start: 07-16-2024 End: 07-16-2024 Clinical Support 07/16/2024 1:45 PM EDT Clinical Support [facility] [address] [place] [address] [facility] Start: 07-15-2024 End: 07-15-2024 Clinical Support 07/15/2024 1:45 PM EDT Clinical Support [facility] [address] [place] [address] [facility] Start: 07-13-2024 End: 07-13-2024 Clinical Support 07/13/2024 1:45 PM EDT Clinical Support [facility] [address] [place] [address] [facility] Start: 07-09-2024 End: 07-09-2024 Clinical Support 07/09/2024 1:45 PM EDT Clinical Support [facility] [address] [place] [address] [facility] Start: 07-08-2024 End: 07-08-2024 Clinical Support 07/08/2024 1:45 PM EDT Clinical Support [facility] [address] [place] [address] [facility] Start: 07-06-2024 End: 07-06-2024 Clinical Support 07/06/2024 1:45 PM EDT Clinical Support [facility] [address] [place] [address] [facility] Start: 07-02-2024 End: 07-02-2024 Clinical Support 07/02/2024 1:45 PM EDT Clinical Support [facility] [address] [place] [address] [facility] Start: 07-01-2024 End: 07-01-2024 Clinical Support 07/01/2024 1:45 PM EDT Clinical Support [facility] [address] [place] [address] [facility] Start: 06-29-2024 End: 06-29-2024 Clinical Support 06/29/2024 1:45 PM EDT Clinical Support [facility] [address] [place] [address] [facility] Start: 06-25-2024 End: 06-25-2024 Clinical Support 06/25/2024 1:45 PM EDT Clinical Support [facility] [address] [place] [address] [facility] Start: 06-01-2024 End: 06-01-2024 ambulatory 06/01/2024 3:00 PM EDT [facility] [address] [place] [address] Paulina Fernandes MD [address] [place], [place] [id number] DX: Dx: Cardiomyopathy, ischemic Cardiology Comment on above: DX: Dx: Cardiomyopathy, ischemic Start: 05-29-2024 End: 05-29-2024 Patient encounter procedure 05/29/2024 1:00 PM EDT Office Visit Kidney Medicine [address] [place] [address] [place] [address] [place] [id number] CKD Kidney Medicine Comment on above: CKD Start: 05-17-2024 Covid-19 Vaccine ( season) Covid-19 Vaccine ( season) [facility] Start: 05-17-2024 Covid-19 Vaccine ( season) Covid-19 Vaccine ( season) [facility] Start: 05-17-2024 Influenza vaccination [facility] [facility] Start: 05-06-2024 End: 05-06-2024 Patient encounter procedure 05/06/2024 3:30 PM EDT Office Visit Cardiology [address] [place] [id number] DX: Severe mitral regurgitation [I34.0] Cardiology Comment on above: DX: Severe mitral regurgitation [I34.0] Start: 04-07-2024 End: 07-07-2024 Basic metabolic 2000 panel - Serum or Plasma BASIC METABOLIC PANEL Lab Routine Chronic systolic heart failure (HCC) Expected: 04/07/2024 (Approximate), Expires: 07/07/2024 [facility] Work Phone: Comment on above: Expected: 04/07/2024 (Approximate), Expi res: 07/07/2024 Start: 04-06-2024 End: 04-06-2024 ambulatory 04/06/2024 1:30 PM EDT Results Only [facility] [address] [place] [address] [place] [address] [facility] Start: 03-31-2024 End: 06-30-2024 Natriuretic peptide.B prohormone N-Terminal [Mass/volume] in Serum or Plasma NT PRO BNP Lab Routine Chronic systolic heart failure (HCC) Expected: 03/31/2024, Expires: 06/30/2024 [facility] Comment on above: Expected: 03/31/2024, Expires: Start: 03-31-2024 End: 03-31-2024 ambulatory [facility] Comment on above: Dx: Dx: Cardiomyopathy, ischemic Start: 03-31-2024 End: 03-31-2024 Patient encounter procedure 03/31/2024 1:15 PM EDT Office Visit Radiation Oncology [address] [place] [address] Yung Andrade MD [address] [place] [place] [address] 6 month rv Radiation Oncology Comment on above: 6 month rv Start: 03-30-2024 End: 06-29-2024 Basic metabolic 2000 panel - Serum or Plasma [facility] Work Phone: Comment on above: Expected: 03/30/2024, Expires: 4 Start: 03-30-2024 End: 03-30-2024 Patient encounter procedure Cardiology Comment on above: HFrEF Severe mitral regurg itation Start: 03-30-2024 End: 03-30-2024 ambulatory 03/30/2024 1:30 PM EDT Results Only Cardiology [address] [place] [address] Severe mitral regurgitation Cardiology Comment on above: Severe mitral regurgitation Start: 03-24-2024 End: 03-24-2024 Patient encounter procedure 03/24/2024 1:00 PM EDT Office Visit [facility] [address] [place] [address] lab [facility] Comment on above: lab Start: 03-18-2024 End: 03-18-2024 [facility] 03/18/2024 2:05 PM EDT [facility] Neurology [facility] [address] [place] [address] Luís Skinner, FOLDER OPERATOR.MILK INSPECTOR [address] [place] [address] HOSPITAL F/U - 0-2 week stroke fu appointment with an RYLIE, PER HOSPITAL ORDER Neurology [facility] Comment on above: HOSPITAL F/U - 0-2 week stroke fu appoin tment with an RYLIE, PER HOSPITAL ORDER Start: 03-11-2024 End: 03-11-2024 Patient encounter procedure 03/11/2024 11:20 AM EDT Office Visit Otolaryngology [address] [place] [address] Charu Kincaid, FOLDER OPERATOR.MILK INSPECTOR [address] [place] [address] Sore throat [J02.9] Otolaryngology Comment on above: Sore throat [J02.9] Start: 02-28-2024 End: 02-28-2024 Patient encounter procedure 02/28/2024 3:30 PM EDT Office Visit Cardiology [address] [place] [address] Keesha Mcarthur, FOLDER OPERATOR.MILK INSPECTOR [address] [place] [address] Severe mitral regurgitation Cardiology Comment on above: Severe mitral regurgitation Start: 02-28-2024 End: 02-28-2024 ambulatory 02/28/2024 3:00 PM EDT Results Only Cardiology [address] [place] [address] Severe mitral regurgitation Cardiology Comment on above: Severe mitral regurgitation Start: 02-27-2024 End: 2025 ECG COMPLETE ECG COMPLETE ECG Routine Severe mitral regurgitation Status post implantation of mitral valve leaflet clip Expected: 02/27/2024, Expires: 2025 [facility] Comment on above: Expected: 02/27/2024, Expires: Start: 02-18-2024 End: 02-18-2024 Evaluation and management of inpatient 02/18/2024 12:44 PM EDT - 02/18/2024 4:36 PM EDT Surgery Admitting [address] [place] [address] Isreal Rain MD [address] [facility] [address] [place] [address] TRANSCATHETER MITRAL VALVE REPAIR PERCUTANEOUS INCLUDE TRANSSEPTAL [...] 02/18/2024 2:55 PM EDT Surgery Admitting [address] [place] [address] Isreal Rain MD [address] [facility] [address] [place] [address] TRANSCATHETER MITRAL VALVE REPAIR PERCUTANEOUS INCLUDE TRANSSEPTAL [...] 10:45 AM EDT Office Visit Cardiology [address] [place] [id number] to be admitted prior on 02/14 and will remain in the house for the procedure. Cardiology Comment on above: to be admitted prior on 02/14 and will rem ain in the house for the procedure. Start: 02-18-2024 End: 02-18-2024 ambulatory 02/18/2024 10:30 AM EDT Procedure Cardiology [address] [place] [address] to be admitted prior on 02/14 and [...] insufficiency, unspecified etiology 02/18/2024 9:03 AM EDT [facility] CT & VAS Start: 02-15-2024 Evaluation and management of inpatient 02/15/2024 12:44 PM EDT Hospital Encounter [id number] [address] [place] [address] Isreal Rain MD [address] [facility] [address] [place] [address] to be admitted prior on 02/14 and will remain in the house for the procedure., Mitral Valve Transcatheter Bekl-lb-Anql Repair (M-AZAEL) w/ Cowart MitraClip, Procedure on: 02/18/24 at 10:30 am [id number] Comment on above: to be admitted prior on 02/14 and will rem ain in the house for the procedure., Mitral Valve Transcatheter Jsoy-zd-Dssa Repair (M-AZAEL) w/ [place] MitraClip, Procedure on: 02/18/24 at 10:30 am Start: 02-15-2024 Evaluation and management of inpatient 02/15/2024 11:03 AM EDT Hospital Encounter [id number] [address] [place] [address] Nicole Coppola MD [address] [place] [address] Isreal Rain MD [address] [facility] [address] [place] [address] to be admitted prior on 02/14 and will remain in the house for the procedure., Mitral Valve Transcatheter Xpdl-lo-Czuq Repair (M-AZAEL) w/ [place] MitraClip, Procedure on: 02/18/24 at 10:30 am [id number] Comment on above: to be admitted prior on 02/14 and will rem ain in the house for the procedure., Mitral Valve Transcatheter Wbdf-fu-Qsel Repair (M-AZAEL) w/ [place] MitraClip, Procedure on: 02/18/24 at 10:30 am Start: 02-12-2024 End: 02-12-2024 Patient encounter procedure 02/12/2024 10:05 AM EDT Office Visit Otolaryngology [address] [place] [address] Charu Kincaid, ANAND.MILK INSPECTOR [address] [place] [address] CONSULT TO ENT Otolaryngology Comment on above: CONSULT TO ENT Start: 02-11-2024 End: 02-11-2024 ambulatory 02/11/2024 4:00 PM EDT [facility] Cardiology [address] [place] [address] Paulina Fernandes MD [address] [place] [address] Atherosclerotic heart disease of [place]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) Cardiology Comment on above: Atherosclerotic heart disease of [place]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) Start: 02-05-2024 End: 02-05-2024 Patient encounter procedure 02/05/2024 3:10 PM EDT Office Visit Vascular Medicine [address] [place] [address] LOLI MEYER TO DO, Vascular Medicine Comment on above: LOLI MEYER TO DO, Start: 02-05-2024 End: 02-05-2024 Nursing evaluation of patient and report 02/05/2024 2:00 PM EDT Nurse Visit Cardiology [address] [place] [id number] [place], Research Nurse Card Intervention [address] [place] [id number] [facility] Comment on above: [facility] Start: 02-05-2024 End: 02-05-2024 [facility] [address] jazmin German Comment on above: [facility] Start: 01-02-2024 End: 01-02-2024 Clinical Support 01/02/2024 1:30 PM EDT Clinical Support [facility] [address] [place] [address] [facility] Start: 01-01-2024 End: 01-01-2024 Clinical Support 01/01/2024 1:30 PM EDT Clinical Support [facility] [address] [place] [address] [facility] Start: 12-30-2023 End: 12-30-2023 Clinical Support 12/30/2023 1:30 PM EDT Clinical Support [facility] [address] [place] [address] [facility] Start: 12-26-2023 End: 12-26-2023 Clinical Support 12/26/2023 1:30 PM EDT Clinical Support [facility] [address] [place] [address] [facility] Start: 12-25-2023 End: 12-25-2023 Clinical Support 12/25/2023 1:30 PM EDT Clinical Support [facility] [address] [place] [address] [facility] Start: 10-29-2023 End: 01-28-2024 Comprehensive metabolic 2000 panel - Serum or Plasma COMP METABOLIC PANEL Lab Routine Chronic 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) Expected: 10/29/2023, Expires: 01/28/2024 [facility] Work Phone: Comment on above: Expected: 10/29/2023, Expires: 4 Start: 09-16-2023 Advance Directive Discussion Advance Directive Discussion [facility] Start: 09-16-2023 Behavioral Health Screening Behavioral Health Screening [facility] Start: 09-16-2023 Depression Assessment Depression Assessment [facility] Start: 05-17-2023 Covid-19 Vaccine () Covid-19 Vaccine () [facility] Start: 05-17-2023 Influenza vaccination [facility] Start: 04-01-2023 End: 06-01-2023 Prostate specific Ag [Mass/volume] in Serum or Plasma PSA/PROSTSPECAG DIAG Lab Routine Malignant neoplasm of prostate (HCC) Expected: 04/01/2023 (Approximate), Expires: 06/01/2023 [facility] Work Phone: Comment on above: Expected: 04/01/2023 (Approximate), Expi res: 06/01/2023 Start: 01-15-2023 Hepatitis B surface antibody level LDL CHOLESTEROL [facility] Start: 10-27-2022 End: 12-27-2022 Prostate specific Ag [Mass/volume] in Serum or Plasma PSA/PROSTSPECAG DIAG Lab Routine Malignant neoplasm of prostate (HCC) Expected: 10/27/2022, Expires: 12/27/2022 [facility] Work Phone: Comment on above: Expected: 10/27/2022, Expires: 3 Start: 09-16-2022 ADVANCE DIRECTIVE DISCUSSION ADVANCE DIRECTIVE DISCUSSION [facility] Start: 09-16-2022 DEPRESSION ASSESSMENT DEPRESSION ASSESSMENT [facility] Start: 08-18-2022 Adult BMI Screening Adult BMI Screening [facility] Start: 08-17-2022 Depression Screening Depression Screening [facility] Start: 07-18-2022 Hemoglobin A1c measurement HbA1C [facility] Start: 07-18-2022 Hemoglobin A1c/Hemoglobin.total in Blood HBA1C [facility] Start: 06-06-2022 End: 08-06-2022 Comprehensive metabolic 2000 panel - Serum or Plasma [facility] Work Phone: Comment on above: Expected: 06/06/2022, Expires: 2 Start: 06-06-2022 End: 08-06-2022 Natriuretic peptide.B prohormone N-Terminal [Mass/volume] in Serum or Plasma [facility] Work Phone: Comment on above: Expected: 06/06/2022, Expires: 2 Start: 05-17-2022 Influenza vaccination [facility] Start: 01-15-2022 End: 03-17-2022 Hemoglobin A1c/Hemoglobin.total in Blood [facility] Work Phone: Comment on above: Expected: 01/15/2022, Expires: 2 Start: 01-15-2022 End: 03-17-2022 Insulin [Units/volume] in Serum or Plasma [facility] Work Phone: Comment on above: Expected: 01/15/2022, Expires: 2 Start: 01-15-2022 End: 03-17-2022 IRON + TIBC [facility] Work Phone: Comment on above: Expected: 01/15/2022, Expires: 2 Start: 01-15-2022 End: 03-17-2022 LIPID PANEL BASIC [facility] Work Phone: Comment on above: Expected: 01/15/2022, Expires: 2 Start: 01-15-2022 End: 03-17-2022 T3 UPTAKE [facility] Work Phone: Comment on above: Expected: 01/15/2022, Expires: 2 Start: 01-15-2022 End: 03-17-2022 T4 FREE/FREE THYROX [facility] Work Phone: Comment on above: Expected: 01/15/2022, Expires: 2 Start: 01-15-2022 End: 03-17-2022 T4/FTI/T4U [facility] Work Phone: Comment on above: Expected: 01/15/2022, Expires: 2 Start: 01-15-2022 End: 03-17-2022 Thyrotropin [Units/volume] in Serum or Plasma [facility] Work Phone: Comment on above: Expected: 01/15/2022, Expires: 2 Start: 01-07-2022 End: 03-09-2022 Prostate specific Ag [Mass/volume] in Serum or Plasma PSA/PROSTSPECAG DIAG Lab Routine Malignant neoplasm of prostate (HCC) Expected: 01/07/2022, Expires: 03/09/2022 [facility] Work Phone: Comment on above: Expected: 01/07/2022, Expires: 2 Start: 09-16-2021 ADVANCE DIRECTIVE DISCUSSION ADVANCE DIRECTIVE DISCUSSION [facility] Start: 09-16-2021 DEPRESSION ASSESSMENT DEPRESSION ASSESSMENT [facility] Start: 06-19-2020 Hepatitis B surface antibody level LDL CHOLESTEROL [facility] Start: 2017 RSV Vaccine (1 - 1-dose 75+ series) RSV Vaccine (1 - 1-dose 75+ series) [facility] Start: 2007 Fall Risk Screening Fall Risk Screening [facility] Start: 2007 PNEUMOVAX AGE 65 AND OVER WITH 5YR LOOKBACK (#1) PNEUMOVAX AGE 65 AND OVER WITH 5YR LOOKBACK (#1) [facility] Start: 2002 RSV Vaccine (1 - 1-dose 60+ series) RSV Vaccine (1 - 1-dose 60+ series) [facility] Start: 02-20-1992 SHINGRIX VACCINE (1 of 2) SHINGRIX VACCINE (1 of 2) [facility] Start: 1961 Administration of varicella zoster vaccine Zoster (Shingles) Vaccine (1 of 2) [facility] Start: 1961 Pneumococcal Vaccine: 50+ (1 of 2 - PCV) Pneumococcal Vaccine: 50+ (1 of 2 - PCV) [facility] Start: 1961 SHINGRIX VACCINE (1 of 2) SHINGRIX VACCINE (1 of 2) [facility] Start: 02-20-1960 ANNUAL PCP TEAM CHRONIC DISEASE VISIT ANNUAL PCP TEAM CHRONIC DISEASE VISIT [facility] Start: 02-20-1960 Anxiety Screening Anxiety Screening [facility] Start: 02-20-1960 Depression Screening Depression Screening [facility] Start: 1954 Adult depression screening assessment DEPRESSION SCREENING [facility] Start: 1954 Tobacco Screening Tobacco Screening [facility] Start: 02-20-1952 3 comp foot exam completed DIABETIC FOOT EXAM [facility] Start: 02-20-1952 Diabetic foot examination Diabetic Foot Exam [facility] Start: 02-20-1952 Glaucoma screening Dilated Retinal Exam [facility] Start: 02-20-1952 Hepatitis B screening URINE ALBUMIN:CREATININE RATIO [facility] Start: 02-20-1952 Hepatitis C antibody, confirmatory test DILATED RETINAL EXAM [facility] Start: 02-20-1948 Pneumococcal Vaccine: 65+ (1 - PCV) Pneumococcal Vaccine: 65+ (1 - PCV) [facility] Start: 02-20-1948 Pneumococcal Vaccine: 65+ (1 of 2 - PCV) Pneumococcal Vaccine: 65+ (1 of 2 - PCV) [facility] Start: 02-20-1948 PNEUMOCOCCAL: 65+ (1 - PCV) PNEUMOCOCCAL: 65+ (1 - PCV) [facility] Start: 1947 COVID-19 VACCINE (#1) COVID-19 VACCINE (#1) [facility] Start: 1947 COVID-19 VACCINE (1) COVID-19 VACCINE (1) [facility] Start: 1942 COVID-19 VACCINE (#1) COVID-19 VACCINE (#1) [facility] Start: 1942 Medicare Annual Wellness Visit Medicare Annual Wellness Visit [facility] 7 REMOVAL OF RESIDUA L TOOTH ROOTS (CUTTING PROCEDURE) 7 REMOVAL OF RESIDUAL TOOTH ROOTS (CUTTING PROCEDURE) Dental Routine 1 Occurrences starting 02/17/2024 [facility] Work Phone: Comment on above: 1 Occurrences starting 02/17/2024 CARDIAC IMPLANTABLE DEVICE CHECK CARDIAC IMPLANTABLE DEVICE CHECK PACEART Routine Pacemaker reprogramming/check 08/19/2024 10:11 AM EST [facility] CARDIOPULMONARY REHABILITATION CARDIOPULMONARY REHABILITATION Cardiac Services [...] Occurrences starting 06/06/2022 until 06/06/2023 [facility] Work Phone: Comment on above: 1 Occurrences starting 06/06/2022 until 06/06/2023 End: 10-30-2024 ECG COMPLETE ECG COMPLETE ECG Routine Chronic 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) 1 Occurrences starting 10/30/2023 until 10/30/2024 [facility] Work Phone: Comment on above: 1 Occurrences starting 10/30/2023 until 10/30/2024 End: 11-25-2024 ECG COMPLETE ECG COMPLETE ECG Routine Atherosclerosis of [place] coronary artery, unspecified whether angina present, unspecified whether [place] or transplanted heart 1 Occurrences starting 11/26/2023 until 11/25/2024 [facility] Work Phone: Comment on above: 1 Occurrences starting 11/26/2023 until 11/25/2024 End: 12-22-2024 ECG COMPLETE ECG COMPLETE ECG Routine HFrEF (heart failure with reduced ejection fraction) ([facility]) Mitral valve insufficiency, unspecified etiology 1 Occurrences starting 12/23/2023 until 12/22/2024 [facility] Work Phone: Comment on above: 1 Occurrences starting 12/23/2023 until 12/22/2024 ECG COMPLETE ECG COMPLETE ECG Routine Severe mitral regurgitation Cardiomyopathy, ischemic S/P CABG (coronary artery bypass graft) 1 Occurrences starting 12/26/2023 [facility] Work Phone: Comment on above: 1 Occurrences starting 12/26/2023 End: 2025 ECG COMPLETE ECG COMPLETE ECG Routine Severe mitral regurgitation Status post implantation of mitral valve leaflet clip 1 Occurrences starting 02/20/2024 until 2025 [facility] Comment on above: 1 Occurrences starting 02/20/2024 until 2025 End: 03-30-2025 ECG COMPLETE ECG COMPLETE ECG Routine Cardiomyopathy, ischemic S/P mitral valve clip implantation 1 Occurrences starting 03/30/2024 until 03/30/2025 [facility] Comment on above: 1 Occurrences starting 03/30/2024 until 03/30/2025 End: 07-27-2025 ECG COMPLETE ECG COMPLETE ECG Routine Frequent PVCs 1 Occurrences starting 07/27/2024 until 07/27/2025 [facility] Work Phone: Comment on above: 1 Occurrences starting 07/27/2024 until 07/27/2025 End: 06-06-2023 Echocardiography ECHO Cardiology Routine Chronic systolic heart failure (HCC) 1 Occurrences starting 06/06/2022 until 06/06/2023 [facility] Work Phone: Comment on above: 1 Occurrences starting 06/06/2022 until 06/06/2023 End: 10-30-2024 Echocardiography ECHO Cardiology Routine Chronic 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) 1 Occurrences starting 10/30/2023 until 10/30/2024 [facility] Work Phone: Comment on above: 1 Occurrences starting 10/30/2023 until 10/30/2024 End: 11-25-2024 Echocardiography ECHO Cardiology Routine Atherosclerosis of [place] coronary artery, unspecified whether angina present, unspecified whether [place] or transplanted heart 1 Occurrences starting 11/26/2023 until 11/25/2024 [facility] Work Phone: Comment on above: 1 Occurrences starting 11/26/2023 until 11/25/2024 End: 12-22-2024 Echocardiography ECHO Cardiology Routine HFrEF (heart failure with reduced ejection fraction) (HCC) Mitral valve insufficiency, unspecified etiology 1 Occurrences starting 12/23/2023 until 12/22/2024 [facility] Work Phone: Comment on above: 1 Occurrences starting 12/23/2023 until 12/22/2024 End: 12-25-2024 Echocardiography ECHO Cardiology Routine Severe mitral regurgitation Cardiomyopathy, ischemic S/P CABG (coronary artery bypass graft) 1 Occurrences starting 12/26/2023 until 12/25/2024 [facility] Work Phone: Comment on above: 1 Occurrences starting 12/26/2023 until 12/25/2024 End: 2025 Echocardiography ECHO Cardiology Routine Severe mitral regurgitation Status post implantation of mitral valve leaflet clip 1 Occurrences starting 02/20/2024 until 2025 [facility] Work Phone: Comment on above: 1 Occurrences starting 02/20/2024 until 2025 End: 03-30-2025 Echocardiography ECHO Cardiology Routine Cardiomyopathy, ischemic S/P mitral valve clip implantation 1 Occurrences starting 03/30/2024 until 03/30/2025 [facility] Comment on above: 1 Occurrences starting 03/30/2024 until 03/30/2025 End: 07-27-2025 HOLTER MONITOR 48 HOUR HOLTER MONITOR 48 HOUR ECG Routine PVC (premature ventricular contraction) 1 Occurrences starting 07/27/2024 until 07/27/2025 [facility] Work Phone: Comment on above: 1 Occurrences starting 07/27/2024 until 07/27/2025 End: 08-19-2025 HOLTER MONITOR 48 HOUR HOLTER MONITOR 48 HOUR ECG Routine Frequent PVCs 1 Occurrences starting 08/19/2024 until 08/19/2025 [facility] Work Phone: Comment on above: 1 Occurrences starting 08/19/2024 until 08/19/2025 End: 09-18-2025 LUNG DIFFUSION CAPACITY (DLCO) LUNG DIFFUSION CAPACITY (DLCO) PFT Routine Frequent PVCs 1 Occurrences starting 08/19/2024 until 09/18/2025 [facility] Comment on above: 1 Occurrences starting 08/19/2024 until 09/18/2025 End: 10-06-2023 NM PET/CT CARDIAC PERF REST/STRESS NM PET/CT CARDIAC PERF REST/STRESS Radiology Routine Chronic systolic heart failure (HCC) Coronary artery disease involving [place] coronary artery of [place] heart without angina pectoris 1 Occurrences starting 09/06/2022 until 10/06/2023 [facility] Work Phone: Comment on above: 1 Occurrences starting 09/06/2022 until 10/06/2023 End: 10-06-2023 NM PET/CT CARDIAC VIABILITY NM PET/CT CARDIAC VIABILITY Radiology Routine Chronic systolic heart failure (HCC) Coronary artery disease involving [place] coronary artery of [place] heart without angina pectoris 1 Occurrences starting 09/06/2022 until 10/06/2023 [facility] Work Phone: Comment on above: 1 Occurrences starting 09/06/2022 until 10/06/2023 RED BLOOD CELLS, ADULT RED BLOOD CELLS, ADULT Blood Bank Routine Atherosclerotic heart disease of [place]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) Ordered: 02/17/2024 [facility] Work Phone: Comment on above: Ordered: 02/17/2024 End: 09-18-2025 SPIROMETRY BASELINE ONLY SPIROMETRY BASELINE ONLY PFT Routine Frequent PVCs 1 Occurrences starting 08/19/2024 until 09/18/2025 [facility] Comment on above: 1 Occurrences starting 08/19/2024 until 09/18/2025 End: 04-17-2025 US Carotid arteries - bilateral US CAROTID BILATERAL Radiology Routine Carotid stenosis, 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, left 1 Occurrences starting 03/18/2024 until 04/17/2025 [facility] Work Phone: Comment on above: 1 Occurrences starting 03/18/2024 until 04/17/2025 End: 09-17-2025 US Carotid arteries - bilateral US CAROTID BILATERAL Radiology Routine Carotid stenosis, 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, left 1 Occurrences starting 08/18/2024 until 09/17/2025 [facility] Work Phone: Comment on above: 1 Occurrences starting 08/18/2024 until 09/17/2025 End: 08-03-2023 US CAROTID ARTERIES [facility] US CAROTID ARTERIES [facility] Vascular Lab Routine Bilateral carotid artery stenosis 1 Occurrences starting 08/03/2022 until 08/03/2023 [facility] Work Phone: Comment on above: 1 Occurrences starting 08/03/2022 until 08/03/2023 [facility] Immunizations Immunization Date Immunization Notes Care Provider [facility] 06-13-2020 diphtheria, tetanus toxoids and pertussis vaccine ARACELI Andrade MD Work Phone: [facility] Payers Date Payer Category Payer Commercial Indemnity [facility] [id number] 2018 Unknown MMO MMO MEDICARE SUPPLEMENT [id number] 2018-Present [phone] [address] [place] [address] Indemnity [id number] 2018 Unknown [id number] 2007 Medicare MEDICARE MEDICAR E A AND B [id number] 2007-Present [phone] [place] [address] Medicare [id number] 2007 Medicare [id number]. 1.13.159.2.7 .[id number] 1959 Medicare [id number] 1959 Self-pay [id number] 1959 Unknown [id number] 1942 Unknown [id number] 2.16.840.1.052751.3.579.2.6 47 1942 Unknown [id number] 2.16.840.1.931938.3.579.2.5 93 1942 Unknown [id number] 2.16.840.1.974922.3.579.2.5 93 1942 Unknown [id number] 2.16.840.1.781908.3.579.2.5 93 1942 Unknown [id number] 2.16.840.1.042230.3.579.2.5 93 1942 Unknown [id number] 2.16.840.1.073391.3.579.2.5 93 1942 Unknown [id number] 2.16.840.1.361912.3.579.2.5 93 1942 Unknown [id number] 2.16.840.1.662500.3.579.2.5 93 1942 Unknown [id number] 2.16.840.1.772122.3.579.2.5 93 1942 Unknown [id number] 2.16.840.1.450760.3.579.2.5 93 1942 Unknown [id number] 2.16.840.1.569115.3.579.2.5 93 1942 Unknown [id number] 2.16.840.1.679344.3.579.2.5 93 1942 Unknown [id number] 2.16.840.1.543047.3.579.2.5 93 1942 Unknown [id number] 2.16.840.1.721098.3.579.2.5 93 1942 Unknown [id number] 2.16.840.1.982267.3.579.2.5 93 1942 Unknown [id number] 2.16.840.1.821862.3.579.2.5 93 1942 Unknown [id number] 2.16.840.1.158843.3.579.2.5 93 1942 Unknown [id number] 2.16.840.1.132019.3.579.2.1 286 1942 Unknown [id number] 2.16.840.1.564114.3.579.2.1 286 1942 Unknown [id number] 2.16.840.1.449423.3.579.2.1 286 1942 Unknown [id number] 2.16.840.1.505879.3.579.2.1 286 1942 Unknown [id number] 2.16.840.1.300675.3.579.2.1 286 1942 Unknown [id number] 2.16.840.1.288937.3.579.2.1 286 1942 Unknown [id number] 2.16.840.1.993167.3.579.2.1 286 1942 Unknown [id number] 2.16.840.1.958600.3.579.2.1 286 1942 Unknown [id number] 2.16.840.1.804501.3.579.2.1 286 1942 Unknown [id number] 2.16.840.1.694944.3.579.2.1 286 1942 Unknown [id number] 2.16.840.1.084415.3.579.2.1 286 1942 Unknown [id number] 2.16.840.1.650116.3.579.2.1 286 1942 Unknown [id number] 2.16.840.1.990188.3.579.2.1 286 1942 Unknown [id number] 2.16840.1.055807.3.579.2.1 286 1942 Unknown [id number] 2.16840.1.033529.3.579.2.1 286 1942 Unknown [id number] 2.16840.1.506961.3.579.2.1 286 1942 Unknown [id number] 2.16.840.1.656984.3.579.2.1 286 1942 Unknown [id number] 2.16.840.1.879117.3.579.2.1 286 1942 Unknown [id number] 2.16.840.1.498900.3.579.2.1 286 1942 Unknown [id number] 2.16.840.1.113765.3.579.2.1 286 1942 Unknown [id number] 2.16.840.1.243014.3.579.2.1 286 1942 Unknown [id number] 2.16.840.1.882420.3.579.2.1 286 1942 Unknown [id number] 2.16.840.1.801264.3.579.2.1 286 1942 Unknown [id number] 2.16.840.1.407029.3.579.2.1 286 1942 Unknown [id number] 2.16.840.1.998045.3.579.2.1 286 1942 Unknown [id number] 2.16.840.1.864241.3.579.2.1 286 1942 Unknown [id number] 2.16.840.1.467813.3.579.2.1 286 1942 Unknown [id number] 2.16.840.1.509878.3.579.2.1 286 1942 Unknown [id number] 2.16.840.1.700656.3.579.2.1 286 1942 Unknown [id number] 2.16.840.1.173481.3.579.2.1 286 1942 Unknown [id number] 2.16.840.1.246499.3.579.2.1 286 1942 Unknown [id number] 2.16.840.1.283982.3.579.2.1 286 1942 Unknown [id number] 2.16.840.1.135046.3.579.2.1 286 1942 Unknown [id number] 2.16.840.1.061757.3.579.2.1 286 1942 Unknown [id number] 2.16.840.1.140904.3.579.2.1 286 1942 Unknown [id number] 2.16.840.1.414900.3.579.2.1 286 1942 Unknown [id number] 2.16.840.1.271895.3.579.2.1 286 1942 Unknown [id number] 2.16.840.1.163160.3.579.2.1 286 1942 Unknown [id number] 2.16.840.1.747378.3.579.2.1 286 1942 Unknown [id number] 2.16.840.1.736954.3.579.2.1 286 1942 Unknown [id number] 2.16.840.1.513880.3.579.2.1 286 1942 Unknown [id number] 2.16.840.1.191539.3.579.2.1 286 1942 Unknown [id number] 2.16.840.1.621215.3.579.2.1 286 1942 Unknown [id number] 2.16.840.1.588302.3.579.2.1 286 1942 Unknown [id number] 2.16.840.1.031884.3.579.2.1 286 1942 Unknown [id number] 2.16.840.1.933266.3.579.2.1 286 1942 Unknown [id number] 2.16.840.1.393248.3.579.2.1 286 1942 Unknown [id number] 2.16.840.1.007926.3.579.2.1 286 1942 Unknown [id number] 2.16.840.1.153522.3.579.2.1 286 1942 Unknown [id number] 2.16.840.1.057315.3.579.2.1 286 1942 Unknown [id number] 2.16.840.1.952934.3.579.2.1 286 1942 Unknown [id number] 2.16.840.1.255835.3.579.2.1 286 1942 Unknown [id number] 2.16.840.1.037636.3.579.2.1 286 1942 Unknown [id number] 2.16.840.1.493082.3.579.2.1 286 1942 Unknown [id number] 2.16.840.1.571400.3.579.2.1 286 1942 Unknown [id number] 2.16.840.1.509621.3.579.2.1 286 1942 Unknown [id number] 2.16.840.1.881351.3.579.2.1 286 1942 Unknown [id number] 2.16.840.1.409020.3.579.2.1 286 1942 Unknown [id number] 2.16.840.1.142323.3.579.2.1 286 1942 Unknown [id number] 2.16.840.1.304181.3.579.2.1 286 1942 Unknown [id number] 2.16.840.1.179500.3.579.2.1 286 1942 Unknown [id number] 2.16.840.1.030000.3.579.2.1 286 1942 Unknown [id number] 2.16.840.1.259590.3.579.2.1 286 1942 Unknown [id number] 2.16.840.1.693425.3.579.2.1 286 1942 Unknown [id number] 2.16.840.1.792336.3.579.2.1 286 1942 Unknown [id number] 2.16.840.1.898206.3.579.2.1 286 Social History Date Type Detail Facility Start: 04-28-2012 End: 08-19-2024 Tobacco smoking status WAIS Ex-smoker [facility] Work Phone: Start: 04-28-1972 End: 04-28-1982 History of tobacco use Current smoker [facility] Work Phone: Start: 04-28-1972 End: 04-28-1982 History of tobacco use Cigarette Smoker [facility] Work Phone: End: 04-28-1982 History of tobacco use Pipe Smoker [facility] Work Phone: Start: 04-28-2012 End: 02-05-2024 Cigarettes smoked current (pack per day) - Reported 1 [facility] Start: 04-28-2012 End: 08-19-2024 Tobacco use and exposure Smokeless tobacco non-user [facility] Work Phone: Start: 12-04-2021 End: 05-11-2024 Alcohol intake Current drinker of alcohol (finding) [facility] Start: 04-15-2020 History SDOH Alcohol Frequency 2 [facility] Start: 04-15-2020 History SDOH Alcohol Std Drinks 1 [facility] Start: 03-13-2019 History SDOH Alcohol Comment occassional [facility] Start: 1940 Sex Assigned At Male C [facility] Start: 08-06-2021 End: 06-06-2022 Exposure to SARS-CoV-2 (event) Not sure [facility] Start: 10-25-2022 Alcohol Comment rarely [facility] Start: 04-15-2020 End: 02-05-2024 Alcohol Use Disorder Identification Test - Consumption [AUDIT-C] [facility] How often to you hav e a drink containing alcohol? Monthly or less [facility] How many standard dr inks containing alcohol do you have on a typical day? 1 or 2 [facility] Frequency of Binge Drinking Not on file [facility] Start: 02-22-2019 Gender identity Identifies as male gender (finding) [facility] Start: 02-22-2019 Sexual orientation Heterosexual (fin ding) [facility] Do you belong to any clubs or organizations such as judaism groups, unions, fraternal or athletic groups, or school groups? No [facility] Are you now , , , , never or living with a partner? [facility] How often do you hav e 6 or more drinks on 1 occasion? Never [facility] Do you feel stress - tense, restless, nervous, or anxious, or unable to sleep at night because your mind is troubled all the time - these days [OSQ] Not at all [facility] Start: 08-17-2021 Alcohol Comment 1 beer/month [facility] Start: 1940 Sex Assigned At Not on file P [facility] (I/We) worried wheth er (my/our) food would run out before (I/we) got money to buy more. Never true [facility] Start: 04-19-2015 Sex Male (finding) [facility] In the past 12 month s, was there a time when you were not able to pay the mortgage or rent on time? Yes [facility] Start: 08-19-2024 Alcoholic beverage intake Ex-drinker (finding) [facility] NEGATED: Highlighted rowStart: NINF History of tobacco use Passive smoker [facility] Medical Equipment Procedure Code Equipment Code Equipment Origin al Text Equipment Identifier Dates Weston Cv 6x1in Thk1.65mm Ptfe - [id number]_[facility] Start: 05-01-2012 Comment on above: Description: used fo r plrdgetts. Patch Cv 8x.8cm Tapr Vsgrd Bov - [id number]_[facility] Start: 07-01-2012 Comment on above: Description: Right C arotid [id number]_[facility] Start: 03-24-2019 [id number] [id number]_[facility] Start : 03-16-2019 [id number] Rossy vity Mri [id number] [id number]_[facility] Start: 03-24-2019 [id number] Reli ance 4-Front [id number] [id number]_[facility] Start: 03-24-2019 [id number] Harper clip Xt Delivery System - [id number]_[facility] Start: 02-18-2024 Sys Kit 1 Sgc & Up To 3 Clips - [id number]_[facility] Start: 02-18-2024 System Vascade 6 /7fr Collagen Compression Bioabsorbable Vascular - [id number] [id number]_[facility] Start: 03-04-2024 Stent Precise Pr o Rx 8mm Nitinol 40mm 135cm Vascular Self Expand Micromesh - [id number]_imp Start: 03-04-2024 Goals Date Patient Goal [...] Alvarez RN September 11, 2024 1:22 PM [facility] 09-11-2024 Miscellaneous Notes Spoke with patient: He [...] José Miguel Antonio JrTitus Patient Contact Number: [phone] (home) [phone] (cell) Date of last office visit: 08/19/2024 [...] Yes Martha Maya documented in this encounter [facility] 09-10-2024 Telephone encounter Note Called the patient [...] Springer RN September 10, 2024 2:08 PM [facility] 09-10-2024 Telephone encounter Note September 10, 2024 Name: José Miguel Juarez Paco Rose Patient Contact Number: [phone] (home) [phone] (cell) Date of last office visit: 08/19/2024 [...] next three business days. Yes Martha Maya [facility] 09-07-2024 Telephone encounter Note Spoke to patient's daughter. Let her know we would update Dr Wei for next steps. She notes that her father said his feet were swollen, red and leaking . Advised to update Dr Fernandes and to have PCP look at feet. Winsome Ivory RN [facility] 09-07-2024 Miscellaneous Notes Spoke to patient's daughter. Let her know we would update Dr Wei for next steps. She notes that her father said his feet were swollen, red and leaking . Advised to update Dr Fernandes and to have PCP look at feet. Winsome Ivory RN September 07, 2024 Patient Contact Number: [phone] (home) [phone] (cell) Patient last seen within the last year: Yes Reason For Call: Follow-up Questions: Patient's daughter Charu called stated the patient started amiodarone on 08/31 and he has broken out severely from the medication rash started on 09/03. They contacted the nurse precipitation equipment tender and was advised to stop the medication and is feeling better. Please contact Charu [phone] Thank you Adm Galilea Soap Chipper documented in this encounter [facility] 09-07-2024 Telephone encounter Note September 07, 2024 Patient Contact Number: [phone] (home) [phone] (cell) Patient last seen within the last year: Yes Reason For Call: Follow-up Questions: Patient's daughter Charu called stated the patient started amiodarone on 08/31 and he has broken out severely from the medication rash started on 09/03. They contacted the nurse precipitation equipment tender and was advised to stop the medication and is feeling better. Please contact Charu [phone] Thank you Adm Galilea Soap Chipper [facility] 09-03-2024 Telephone encounter Note Contacted the patient. He reports at the time of the event he was on a call that made him upset. He denies any symptoms during the event. Ema Rankin RN [facility] 09-03-2024 Miscellaneous Notes Contacted the patient. He reports at the time of the event he was on a call that made him upset. He denies any symptoms during the event. Ema Rankin RN September 03, 2024 Patient Contact Number: [phone] (home) [phone] (cell) Patient last seen within the last year: Yes Reason For Call: Follow-up Questions: Patient called stated he recalls what he was doing at the time he was agitated on a phone call. Thank you Adm Galilea Soap Chipper Contacted the patient. He feels ok. He [...] mildly tachy when in AF AP 2% BUSINESS INITIATIVES MANAGER 15% documented in this encounter [facility] 09-03-2024 Telephone encounter Note September 03, 2024 Patient Contact Number: [phone] (home) [phone] (cell) Patient last seen within the last year: Yes Reason For Call: Follow-up Questions: Patient called stated he recalls what he was doing at the time he was agitated on a phone call. Thank you Adm Galilea Soap Chipper [facility] 09-03-2024 Telephone encounter Note Contacted the patient. He feels ok. He was unaware of the episode on 09/02. Will review with Dr. Wei. Ema Rankin RN [facility] 09-03-2024 Telephone encounter Note ----- Message from [...] mildly tachy when in AF AP 2% BUSINESS INITIATIVES MANAGER 15% [facility] 08-28-2024 Telephone encounter Note Date: August 28, [...] x-ray and pulmonary function. Ema Rankin RN [facility] 08-28-2024 Telephone encounter Note ----- Message from Lisa Whaley RN sent at 08/27/2024 9:12 AM [facility] ----- Regarding: Ongoing AFL Dr. Wei, Recent remote transmission shows this patient has been in ongoing AFL for ~5 days (since 08/22/24). Patient states he feels well and is taking all prescribed medications including Eliquis. Full report available in murj for you to review. Thanks, Lisa CHRIS [facility] 08-28-2024 Miscellaneous Notes Date: August 28, 2024 [...] RN Device Clinic documented in this encounter [facility] 08-19-2024 Note [facility] 08-19-2024 History of Presen t illness Narrative HOLTER MONITOR APPLICATION Patient Name: José Miguel Antonio Jr. Clinic Number: [id number] Chest is cleansed with alcohol Skin prep [...] or 48 hours 6.) Call with problems [phone] OR [phone] Patient expresses good verbal understanding of instructions Jose Khan documented in this encounter [facility] 08-19-2024 Instructions Carmela Fernandes MD - 08/19/2024 2:08 PM EST -Blood work today -will consider spironolactone 12.5 mg daily pending blood work -You have about 5 extra pounds on you -will add you on 10/05/2024 as in-person visit -48hr holter documented in this encounter [facility] 08-19-2024 Note [facility] 08-19-2024 History of Presen t illness Narrative Images from the original note were not included. [facility] [place] [facility] SECTION OF HEART FAILURE and CARDIAC TRANSPLANT MEDICINE OUTPATIENT VISIT DATE August 19, 2024 OUTPATIENT VISIT TYPE Established Patient PRIMARY CARE PHYSICIAN: Samm Thompson [address] [place] [address] CHIEF COMPLAINT: HFrEF NURSING INTAKE (Patient s [...] combined systolic and diastolic congestive heart failure ([facility]) 09/03/2022 Dyslipidemia Gastrointestinal hemorrhage 05/11/2024 GERD (gastroesophageal reflux disease) Heart failure, acute systolic ([facility]) Hypertension Hypothyroid Myocardial infarct, old Occlusion and stenosis of carotid artery without mention of cerebral infarction Prostate cancer ([facility]) 2020 PVC (premature ventricular contraction) PVD (peripheral vascular disease) ([facility]) 11/17/2012 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 Systolic heart failure ([facility]) Thyroid disorder 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 kidney disease, unspecified CKD stage, unspecified whether technician terminal and repeater insulin use ([facility]) 04/26/2023 Ventricular tachycardia ([facility]) 04/28/2012 PAST SURGICAL HISTORY Procedure Laterality [...] Artery Disease Father Heart Attack Father fatal [place] at age 77 Ischemic Heart Disease Brother CABGx6 first at age 72 No Known Problems Maternal Grandmother No Known Problems Maternal Grandfather No Known Problems Paternal Grandmother No Known Problems Paternal Grandfather No Known Problems Daughter No Known Problems Daughter No Known Problems Daughter other (Other) Other paternal cousin at age 50 of [place] ALLERGIES: ALLERGIES Allergen Reactions Latex Rash Adhesive [...] Take 100 mg by mouth once daily. [address] LIGHT THYROID 60 mg tablet Take 1 tablet by mouth once daily. Give 1 tablet by mouth every 24 hours for give with 15mg =75mg total thyroid ([address] LIGHT THYROID) 15 mg tablet Take 1 tablet [...] maximal dimension of 4.3 cm. - Percutaneous olmh-ft-oykb repair of the mitral valve with 1 [...] non-medical management as above. Paulina Fernandes MD [facility] Section Of Heart Failure and Cardiac Transplant Medicine [facility] [place] [facility] Desk [id number] [place] [address] documented in this encounter [facility] 08-19-2024 History of Presen t illness Narrative Images from the original note were not included. [facility] [place] [facility] Martin [facility] Department of Cardiovascular Medicine SECTION OF CARDIAC PACING and ELECTROPHYSIOLOGY OUTPATIENT VISIT DATE August 19, 2024 OUTPATIENT VISIT TYPE ESTABLISHED PRIMARY CARE PHYSICIAN: Samm Thompson [address] [place] [address] REFERRING PHYSICIAN: No referring provider defined for [...] (gastroesophageal reflux disease) Heart failure, acute systolic ([facility]) Hypertension Hypothyroid Myocardial infarct, old Occlusion and stenosis of carotid artery without mention of cerebral infarction Prostate cancer ([facility]) 2020 PVC (premature ventricular contraction) PVD (peripheral vascular disease) ([facility]) 11/17/2012 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 Systolic heart failure ([facility]) Thyroid disorder 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 kidney disease, unspecified CKD stage, unspecified whether technician terminal and repeater insulin use ([facility]) 04/26/2023 Ventricular tachycardia ([facility]) 04/28/2012 PAST SURGICAL HISTORY Procedure Laterality [...] Artery Disease Father Heart Attack Father fatal NE at age 77 Ischemic Heart Disease Brother CABGx6 first at age 72 No Known Problems Maternal Grandmother No Known Problems Maternal Grandfather No Known Problems Paternal Grandmother No Known Problems Paternal Grandfather No Known Problems Daughter No Known Problems Daughter No Known Problems Daughter other (Other) Other paternal cousin at age 50 of [place] ALLERGIES: ALLERGIES Allergen Reactions Latex Rash Adhesive [...] mg by mouth two times a day. [address] LIGHT THYROID 60 mg tablet Take 1 tablet by mouth once daily. Give 1 tablet by mouth every 24 hours for give with 15mg =75mg total thyroid ([address] LIGHT THYROID) 15 mg tablet Take 1 tablet [...] with Atrial Fibrillation and AFL * AT/AF [place]: 2% * On Eliquis. Non-sustained Ventricular Tachycardia [...] maximal dimension of 4.3 cm. - Percutaneous lskk-ed-grcm repair of the mitral valve with 1 [...] 10:33 PM This note was generated using Dexetra voice recognition system. Please excuse any typographical errors. documented in this encounter [facility] 08-19-2024 Note [facility] 08-17-2024 Telephone encounter Note Contacted the patient. He is currently taking torsemide. She believes his abdomen is swollen. His weight is the same. He is not having SOB. Instructed her to take the patient to the ED if he is having worsening symptoms. Instructed her to contact Dr. Fernandes's office. Transferred her to Dr. Fernandes's office. Ema Rankin RN [facility] 08-17-2024 Miscellaneous Notes Contacted the patient. He [...] RN August 17, 2024 Patient Contact Number: [phone] (home) [phone] (cell) Patient last seen within the last year: Yes Reason For Call: Follow-up Questions: Patient's daughter Charu called stated the patient is retaining water and she would like to know if this is something that can be addressed at the visit or should she count Dr. Fernandes's office? Please advise [phone] Thank you Adm Galilea Soap Chipper documented in this encounter [facility] 08-17-2024 Telephone encounter Note August 17, 2024 Patient Contact Number: [phone] (home) [phone] (cell) Patient last seen within the last year: Yes Reason For Call: Follow-up Questions: Patient's daughter Charu called stated the patient is retaining water and she would like to know if this is something that can be addressed at the visit or should she count Dr. Fernandes's office? Please advise [phone] Thank you Adm Galilea Soap Chipper [facility] 08-14-2024 Telephone encounter Note Images from the [...] Lo RN August 14, 2024 5:06 PM [facility] 08-14-2024 Miscellaneous Notes Images from the original [...] to 5. Please assist. Thank you, Pablito Metal Neutralizer documented in this encounter [facility] 08-14-2024 Telephone encounter Note Patient advised he is having blood in his stool and is worried his Eliquis is causing this because his dosage was uppsed from 2.5 to 5. Please assist. Thank you, Pablito Bristol [facility] 08-14-2024 Telephone encounter Note OPENED IN ERROR [facility] 08-14-2024 Miscellaneous Notes OPENED IN ERROR documented in this encounter [facility] 08-03-2024 Telephone encounter Note Returned phone call from Charu and informed her we do not have the results of his 48 Hour holter at this time. I will discuss with out holter department to see if they received the monitor. Kinga Guy RN [facility] 08-03-2024 Miscellaneous Notes Returned phone call from Charu and informed her we do not have the results of his 48 Hour holter at this time. I will discuss with out holter department to see if they received the monitor. Kinga Guy RN August 03, 2024 Patient Contact Number: [phone] (home) [phone] (cell) Patient last seen within the last year: Yes Reason For Call: Test Results Patient's daughter Charu called requesting to review the results of the patient's monitor. Please advise Charu can be reached [phone] Thank you Adm Galilea Soap Chipper documented in this encounter [facility] 08-03-2024 Telephone encounter Note August 03, 2024 Patient Contact Number: [phone] (home) [phone] (cell) Patient last seen within the last year: Yes Reason For Call: Test Results Patient's daughter Charu called requesting to review the results of the patient's monitor. Please advise Charu can be reached [phone] Thank you Adm Galilea Soap Chipper [facility] 07-30-2024 Telephone encounter Note 1. Have you [...] Pt instructed to contact 24-hour nurse hotline [phone] for any questions or concerns. Pt verbalized understanding. PD nurse confirmed/verified patient's and full name. All clear, closing statement given. Cullen Calvert RN [facility] 07-30-2024 Miscellaneous Notes 1. Have you noticed [...] Pt instructed to contact 24-hour nurse hotline [phone] for any questions or concerns. Pt verbalized understanding. PD nurse confirmed/verified patient's and full name. All clear, closing statement given. Cullen Calvert RN documented in this encounter [facility] 07-27-2024 Note [facility] 07-27-2024 History of Presen t illness Narrative HOLTER MONITOR APPLICATION Patient Name: José Miguel Antonio Jr. Clinic Number: [id number] Chest is cleansed with alcohol Skin prep [...] or 48 hours 6.) Call with problems [phone] Patient expresses good verbal understanding of instructions TECHNOLOGIST Meghan documented in this encounter [facility] 07-26-2024 Note [facility] 07-26-2024 Note [facility] 07-25-2024 Note [facility] 07-24-2024 [facility] [facility] 07-24-[facility]24 [facility] 07-23-2024 Note [facility] 07-23-2024 Note [facility] 07-22-2024 Note [facility] 07-22-2024 Note [facility] 07-21-2024 Telephone encounter Note Called patient to inform him to go to [facility] ER for elevated troponin levels per Dr. Fernandes. Patient verbalized understanding and was being dropped off at [facility] ER by daughter. Mary Bourgeois RN July 21, 2024 2:09 PM [facility] 07-21-2024 Miscellaneous Notes Called patient to inform him to go to [facility] ER for elevated troponin levels per Dr. Fernandes. Patient verbalized understanding and was being dropped off at [facility] ER by daughter. Mary Bourgeois RN July 21, 2024 2:09 PM documented in this encounter [facility] 06-02-2024 Telephone encounter Note deferred Patient's name appears on the PRO Taussig Report for a PHQ-9 score of 16. Patient completed this questionnaire prior to his appointment with Cardiology. Oncology SW assessment deferred. MARIAM Ryder [facility] 06-02-2024 Miscellaneous Notes deferred Patient's name appears on the PRO T[place]ig Report for a PHQ-9 score of 16. Patient completed this questionnaire prior to his appointment with Cardiology. Oncology SW assessment deferred. MARIAM Ryder documented in this encounter [facility] 06-02-2024 Telephone encounter Note Patient seen by Dr. Fernandes VV 06/01/2024. Irlanda Lo RN June 02, 2024 8:54 AM [facility] 06-02-2024 Miscellaneous Notes Patient seen by Dr. [...] spironolactone by Dr. Fernandes. Attempted to call [facility] [phone] but unable to reach nurse. left with office number [phone]. Irlanda Lo RN May 22, 2024 2:48 PM Karly from [facility] ([address]) is calling because patient wants to know if he should continue or stop farxiga. He is also wondering about spironolactone 12.5mg but his bp is low. These were his discharge orders from his recent hospital stay. Nurse and patient wanting clarity L/S:03/31/24 Karly # [phone] documented in this encounter [facility] 06-01-2024 Note [facility] 06-01-2024 History of Presen t illness [...] No Headaches: No Heart, Vascular & Thoracic [place] Department of Cardiovascular Medicine VIRTUAL VIDEO VISIT [...] visit. Either the patient or their legal telemarketing representative has been informed of the risks [...] cardiac history and that he follows with [facility] Cardiology, he was admitted to the [...] and tolerated it. He was transferred to [facility] at request of his family as [...] combined systolic and diastolic congestive heart failure ([facility]) 09/03/2022 Dyslipidemia Gastrointestinal hemorrhage 05/11/2024 GERD (gastroesophageal reflux disease) Heart failure, acute systolic ([facility]) Hypertension Hypothyroid Myocardial infarct, old Occlusion and stenosis of carotid artery without mention of cerebral infarction Prostate cancer ([facility]) 2020 PVD (peripheral vascular disease) ([facility]) 11/17/2012 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 Systolic heart failure ([facility]) Thyroid disorder 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 kidney disease, unspecified CKD stage, unspecified whether technician terminal and repeater insulin use ([facility]) 04/26/2023 Ventricular tachycardia ([facility]) 04/28/2012 PAST SURGICAL HISTORY Procedure Laterality [...] Artery Disease Father Heart Attack Father fatal NE at age 77 Ischemic Heart Disease Brother CABGx6 first at age 72 No Known Problems Maternal Grandmother No Known Problems Maternal Grandfather No Known Problems Paternal Grandmother No Known Problems Paternal Grandfather No Known Problems Daughter No Known Problems Daughter No Known Problems Daughter other (Other) Other paternal cousin at age 50 of [place] Social History Tobacco Use Smoking status: Former [...] Take 1 tablet by mouth once daily. [address] LIGHT THYROID 15 mg tablet Take 1 tablet [...] 2024 2:59 PM documented in this encounter [facility] 05-22-2024 Telephone encounter Note Images from the [...] spironolactone by Dr. Fernandes. Attempted to call [facility] [phone] but unable to reach nurse. left with office number [phone]. Irlanda Lo RN May 22, 2024 2:48 PM [facility] 05-20-2024 Telephone encounter Note Karly from [facility] ([address]) is calling because patient wants to know if he should continue or stop farxiga. He is also wondering about spironolactone 12.5mg but his bp is low. These were his discharge orders from his recent hospital stay. Nurse and patient wanting clarity L/S:03/31/24 Karly # [phone] [facility] 05-15-2024 Note [facility] 05-15-2024 Note [facility] 05-14-2024 Note [facility] 05-13-2024 Note [facility] 05-12-2024 Note [facility] 05-12-2024 Note [facility] 05-12-2024 Note [facility] 05-11-2024 Note [facility] 05-11-2024 Note [facility] 05-10-2024 Note [facility] 05-09-2024 Note HNO ID: [id number] Author: PETE PRATT, INOCENTE Service: Care Management Author Type: Registered Nurse Type: Care Mgt Progress Note Filed: 05/09/2024 09:24 Note Text: CARE MANAGEMENT PROGRESS NOTE SERVICE DATE: 05/09/2024 SERVICE TIME: 9:24 AM LOS: 3 days Patient to be transferred to [facility] at 1pm via MMT. Informed accepting SN[facility] of transfer. SIGNATURE: Pete Pratt RN PATIENT NAME: José Miguel Antonio Jr. DATE: May 09, 2024 TIME: 9:23 AM PAGER/CONTACT #: [phone] [facility] 05-09-2024 Note HNO ID: [id number] Author: CARINA PARISI APRN.CNP Service: Hospital Medicine [...] GI consult -Cont to monitor Carina Parisi APRN.MILK INSPECTOR May 09, 2024 2:00 AM [facility] 05-08-[address] Fernandes called the daughter. Marce Springer RN May 08, 2024 5:15 PM [facility] 05-08-[address] Fernandes called the [...] is too tired. Please call her at [phone] Charu. Thank you, Sandeep documented in this encounter [facility] 05-08-2024 Note HNO ID: [id number] Author: JAMIE HEREDIA MD Service: Hospital Medicine Author Type: Physician Type: Progress Notes Filed: 05/08/2024 21:02 Note Text: DEPARTMENT OF HOSPITAL MEDICINE PROGRESS NOTE SERVICE DATE: 05/08/2024 SERVICE TIME: 6:01 PM Hospital Medicine/Primary Attending: Jamie Heredia MD NIGHT AND WEEKEND COVERAGE: [place] COVERAGE: Days: [phone], please contact via [employer] Nights: - 3rd floor: please page Hospitalist night cover [phone] - 4W: please page Hospitalist night cover #[phone] - 5th floor: please page Hospitalist night cover #[phone] - SDU (17:00 - 19:00): Please page #[phone] - SDU (19:00 - 07:00): Please call [facility]ospital at [phone] Subjective INTERVAL HPI: Patient was seen and [...] L CEA was done by Neuro-IR at [facility] Virtual follow up by Neurology on 03/18--> [...] and Airways Line Duration Peripheral 05/06/24 1706 [facility] Short Right Antecubital 20 Gauge 2 [...] 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 [facility] 05-08-2024 Note HNO ID: [id number] Author: PAULETTE ARMENDARIZ LISW Service: Care Management Author Type: Slotter Operator Helper Type: Care Mgt Progress Note Filed: 05/08/2024 13:53 Note Text: CARE MANAGEMENT PROGRESS NOTE SERVICE DATE: 05/08/2024 SERVICE TIME: 1344 LOS: 2 days Needs Prior to Discharge: Patient/Family [facility] has accepted. [facility] does not have beds. Met with pt to discuss further. Pt states he was seen by GI today and is trying to decide if he wants to pursue with EGD and colonoscopy on Saturday per their recommendations. He was pleased to learn [facility] will accept but states he will put a call out to [facility] to talk about bed availability. 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 After he talks with [facility] he will make final decision. As he [...] 08, 2024 TIME: 1:44 PM PAGER/CONTACT #: [phone] [facility] 05-08-2024 Note HNO ID: [id number] Author: JESUSITA MELO CT Service: Radiology Author [...] PATIENT PRESENTS WITH AN IMPLANTABLE OR ATTACHED FIRE CODE INSPECTOR: No RADIOLOGY DEPARTMENT: CT; Exam(s) Completed: Abdomen/Pelvis PERIPHERAL IV DATA: Not applicable SIGNED BY: KASSI RITCHIE May 08, 2024 1:33 PM [facility] 05-08-2024 Telephone encounter Note Called Charu and relayed message from Dr. Fernandes. While on the phone, daughter stated patient is in the hospital now and the physicians are planning an EGD and colonoscopy and daughter wants to proceed but would like Dr. Fernandes to comment on the plan. Marce Springer RN May 08, 2024 12:11 PM [facility] 05-08-2024 Telephone encounter Note Images from the [...] discussed with neurology team. Thanks, - Andreas [facility] 05-07-2024 Note HNO ID: [id number] Author: PAULETTE ARMENDARIZ LISW Service: Care Management Author Type: Slotter Operator Helper Type: Care Mgt Initial Assessment Filed: 05/07/2024 16:16 Note Text: CARE MANAGEMENT: ASSESSMENT AND DISCHARGE PLAN SERVICE DATE: May 07, 2024 SERVICE TIME: 1400 PCP: Samm Thompson MD Primary Contact: Extended Emergency Contact Information Primary Emergency Contact: Charu Cain Mobile Relation: Daughter Secondary Emergency Contact: [place] [address] [facility] Relation: Daughter Admission Status: Inpatient Insurance Provider: MEDICARE A AND B Discharge Planning requested by: Per Department Practice Potential Transition Plans Fdc Facility/Intermediate Care Facility;To Be Determined Advance Directives Current Advance Directive: None Galvanometer Assembler Attempted to Assist with AD Completion: Yes [...] Goal(s): General wellness, Ambulate a little better Conifer of Choice Explained: Conifer of Choice Given: Yes Level of Care Discussed: Fdc Facility Are you interested in bedside delivery of your medications? No Discharge Planning Participant(s): Patient Patient/Family Comments: Dtesperanza Pretty in room, and other dtr's Zakc [phone] on speaker phone Caregiver Assessment: Caregiver is [...] He has no intention of moving into half-way. Dtr's are trying to get him to consider moving to a trailer park and gettting rid of his cats. Pt is not interested in resources for hoarding at this time. Referrals sent in order to [facility]. 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 Does NOT want Thompson where his brother is staying. SW/NATALIA to follow. SIGNATURE: RINA Guerrero PATIENT NAME: José Miguel Antonio Jr. DATE: May 07, 2024 TIME: 4:07 PM CONTACT #: [phone] [facility] 05-07-2024 Note HNO ID: [id number] Author: JAMIE HEREDIA MD Service: Hospital Medicine Author Type: Physician Type: Progress Notes Filed: 05/08/2024 05:31 Note Text: DEPARTMENT OF HOSPITAL MEDICINE PROGRESS NOTE SERVICE DATE: 05/07/2024 SERVICE TIME: 10:23 AM Hospital Medicine/Primary Attending: Jamie Heredia MD NIGHT AND WEEKEND COVERAGE: [place] COVERAGE: Days: [phone], please contact via [employer] Nights: [phone] - 3rd floor: please page Hospitalist night cover [phone] - 4W: please page CC Hospitalist night cover #[phone] - 5th floor: please page CC Hospitalist night cover #[phone] - SDU (17:00 - 19:00): Please page #[phone] - SDU (19:00 - 07:00): Please call E-Hospital at [phone] Subjective INTERVAL HPI: Patient was seen and [...] L CEA was done by Neuro-IR at [facility] Virtual follow up by Neurology on 03/18--> was told to keep ASA at 325 mg daily Telephone communication with neurology--> dc plavix and restarted xarelto in April 01 along with asa 325 mg Since March, noted steady drop in hgb as well as iron PCP in [place] started patient on IV iron infusions Was [...] and Airways Line Duration Peripheral 05/06/24 1706 [facility] Short Right Antecubital 20 Gauge <1 [...] artery disease involving coronary bypass graft of [place] heart without angina pectoris Systolic heart failure (HCC) S/P CABG (coronary artery bypass graft) 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 kidney disease, unspecified CKD stage, unspecified whether longterm insulin use (HCC) Stage 3b chronic kidney [...] for severe MR (more content not included)... [facility] 05-06-2024 Note HNO ID: [id number] Author: JORGE ENCISO RT(R) Service: ? Author [...] PATIENT PRESENTS WITH AN IMPLANTABLE OR ATTACHED FIRE CODE INSPECTOR: No RADIOLOGY DEPARTMENT: General X-ray: Exam(s) Completed: Chest X-Ray PERIPHERAL IV DATA: Not applicable SIGNED BY: RT Lisbet(R) May 06, 2024 5:01 PM [facility] 05-06-2024 Telephone encounter Note Patients daughter thinks he is on too many blood thinners, sob, doesn't go to cardiac rehab because he is too tired. Please call her at [phone] Charu. Thank you, Sandeep [facility] Work Phone: 04-30-2024 Note [facility] 04-30-2024 History of Presen t illness Narrative Summary: KCCQ-12 AMB TVT FOLLOWUP: Follow Up Type: Phone Call Call Attempt: Final Attempt Call Status: Patient Refused Patient answered call back and now states refusal. documented in this encounter [facility] 04-29-2024 Note [facility] 04-29-2024 History of Presen t illness Narrative Summary: KCCQ-12 AMB TVT FOLLOWUP: Follow Up Type: Phone Call Call Attempt: 1st Attempt Call Status: Left Message and Asked to be called back Patient returned call but asked for a call back tomorrow documented in this encounter [facility] 04-06-2024 Instructions Yung Andrade MD - 04/06/2024 3:28 PM EDT Advance Directives Every adult has the right to direct their own medical care. Having an advance directive on file helps to ensure that you receive the care you want if a medical condition or injury renders you unable to make decisions or communicate. Forms can be found on the [facility] Advance Directives site. You do not need a social sciences department chair to complete advance directive documents. [email or web address] [email or web address] Talking about end-of-life issues is difficult, but it truly is a gift to your loved ones. We suggest using The Conversation Project (the[place] From Home.com Entertainmentationproject.org) to help guide you through discussing and [...] JPEG format. You can also mail to: [facility] Health Information Management, [employer] Advance Directive Processing [address] [place], [place] [address] documented in this encounter [facility] 04-06-2024 Telephone encounter Note Call to daughter EC Charu, no answer, LVM with return number. Geneva Lam RN April 06, 2024 11:25 AM [facility] 04-06-2024 Miscellaneous Notes Call to daughter EC Charu, no answer, LVM with return number. Geneva Lam RN April 06, 2024 11:25 AM Name of Caller: Charu Cain Relationship to patient: patient's daughter Reason for Call: Patient Daughter is calling just looking for clarification and new mediation instruction. Please reach out when available. Callback number: [phone] Janice Timmons documented in this encounter [facility] 04-03-2024 Telephone encounter Note Name of Caller: Charu Cain Relationship to patient: patient's daughter Reason for Call: Patient Daughter is calling just looking for clarification and new mediation instruction. Please reach out when available. Callback number: [phone] Janice Timmons [facility] 04-02-2024 Instructions Paulina Fernandes MD - 04/02/2024 10:23 AM EDT -Follow-up blood work 04/03 documented in this encounter [facility] 04-01-2024 Telephone encounter Note Unable To Reach Patient Patient appears on the PRO T[place]ig Report for a PHQ-9 score of 11. Questionnaire was completed on 03/31. SW called and left a VM encouraging this Patient to kelsey back if additional support was desired. SW will remain available and will follow up as appropriate. MARIAM Ryder [facility] 04-01-2024 Miscellaneous Notes Unable To Reach Patient Patient appears on the PRO [place] Report for a PHQ-9 score of 11. Questionnaire was completed on 03/31. SW called and left a VM encouraging this Patient to kelsey back if additional support was desired. SW will remain available and will follow up as appropriate. MARIAM Ryder documented in this encounter [facility] 03-31-2024 Note [facility] 03-31-2024 History of Presen t [...] Muscle aches: No Heart, Vascular & Thoracic [place] Department of Cardiovascular Medicine VIRTUAL VIDEO VISIT [...] visit. Either the patient or their legal telemarketing representative has been informed of the risks and benefits of -- and alternatives to -- treatment through a remote evaluation and consents to proceed with the evaluation remotely. José Miguel Antonio Jr. is a 84 year old male seen for follow-up. CHIEF COMPLAINT FMR, HFrEF HISTORY OF PRESENT ILLNESS José Miguel Antonoi Jr. is a 84 year old male post AZAEL MV thrombus noted. Started Xarelto. Increased lasix. 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) 09/03/2022 Dyslipidemia GERD (gastroesophageal reflux disease) Heart failure, acute systolic ([facility]) Hypertension Hypothyroid Myocardial infarct, old Occlusion and stenosis of carotid artery without mention of cerebral infarction Prostate cancer ([facility]) 2020 PVD (peripheral vascular disease) ([facility]) 11/17/2012 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 Systolic heart failure ([facility]) Thyroid disorder 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 kidney disease, unspecified CKD stage, unspecified whether longterm insulin use ([facility]) 04/26/2023 Ventricular tachycardia ([facility]) 04/28/2012 PAST SURGICAL HISTORY Procedure Laterality [...] Artery Disease Father Heart Attack Father fatal NE at age 77 Ischemic Heart Disease Brother CABGx6 first at age 72 No Known Problems Maternal Grandmother No Known Problems Maternal Grandfather No Known Problems Paternal Grandmother No Known Problems Paternal Grandfather No Known Problems Daughter No Known Problems Daughter No Known Problems Daughter other (Other) Other paternal cousin at age 50 of [place] Social History Tobacco Use Smoking status: Former [...] directed. (Patient not taking: Reported on 03/30/2024) [address] LIGHT THYROID 15 mg tablet Take 15 mg [...] 2024 3:55 PM documented in this encounter [facility] 03-31-2024 History of Presen t illness Narrative Radiation Oncology - Follow Up Note PATIENT NAME: José Miguel Antonio Jr. PATIENT DIAGNOSIS: Prostate adenocarcinoma, initial PSA 8.14, biopsy Sterling score 3 + 4 = 7 (grade [...] directed. (Patient not taking: Reported on 03/30/2024) [address] LIGHT THYROID 15 mg tablet Take 15 mg [...] Yung Andrade MD cc: Samm Thompson MD [address] [place] [address] documented in this encounter [facility] 03-31-2024 Note [facility] 03-31-2024 Nurse Note AUA= 5 [facility] 03-31-2024 Nurse Note AUA= 5 documented in this encounter [facility] 03-30-2024 Telephone encounter Note March 30, 2024 Patient Contact Number: [phone] Patient last seen within the last year: Yes Date of last office visit: 03/30/2024 Reason For Call: PT requested Patient Enrollment Form be filled out for Xarelto approval. Form has been scanned and uploaded. Physician: Efren Brady MD Patient was informed that non-urgent calls may be returned within the next three business days. Yes Sandy Sales [facility] 03-30-2024 Miscellaneous Notes March 30, 2024 Patient Contact Number: [phone] Patient last seen within the last year: Yes Date of last office visit: 03/30/2024 Reason For Call: PT requested Patient Enrollment Form be filled out for Xarelto approval. Form has been scanned and uploaded. Physician: Efren Brady MD Patient was informed that non-urgent calls may be returned within the next three business days. Yes Sandy Sales documented in this encounter [facility] 03-30-2024 History of Presen t illness Narrative Heart and Vascular [place] Jose Martin Silva Department of Cardiovascular Medicine [...] cancer (HCC) 2020 PVD (peripheral vascular disease) ([facility]) 11/17/2012 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 Systolic heart failure (HCC) Thyroid disorder 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 kidney disease, unspecified CKD stage, unspecified whether longterm insulin use ([facility]) 04/26/2023 Ventricular tachycardia ([facility]) 04/28/2012 Surgical History: PAST SURGICAL HISTORY Procedure [...] Artery Disease Father Heart Attack Father fatal NE at age 77 Ischemic Heart Disease Brother CABGx6 first at age 72 No Known Problems Maternal Grandmother No Known Problems Maternal Grandfather No Known Problems Paternal Grandmother No Known Problems Paternal Grandfather No Known Problems Daughter No Known Problems Daughter No Known Problems Daughter other (Other) Other paternal cousin at age 50 of [place] Social History: Social History Tobacco Use Smoking [...] (NITROQUICK) 0.4 mg SL tablet as directed. [address] LIGHT THYROID 15 mg tablet Take 15 mg [...] ABNORMAL ECG Confirmed by MD JIMÉNEZ TAMANNA ([id number]) on 03/05/2024 11:10:51 AM Prior records were [...] to twice daily. He follows with a glass processing worker locally but would prefer to have one. I have placed a referral. Efren Brady MD, [facility] laundry machine tender, [facility] Staff, Section of Cardiovascular Imaging Department of Cardiovascular Medicine [facility] V[facility] ADDENDUM: Echo reviewed. There is new echodensity in the posterior LV suspicious for LV thrombus. Discussed findings with patient and daughter. He will be starting Xarelto tomorrow as per neurosx recommendations. He knows that he needs a repeat echo in a month or two. He prefers to do it locally and will share the results with us Efren Bardy MD, [facility] Staff, Section of Cardiovascular Imaging Department of Cardiovascular Medicine [facility] Vascular [facility] documented in this encounter [facility] 03-30-2024 Note [facility] 03-18-2024 History of Presen t illness Narrative Images from the original note were not included. [facility] Virtual Visit Consultation is requested by: No referring provider defined for this encounter. PCP: Samm Thompson [address] [place] [address] CEREBROVASCULAR HISTORY José Miguel Antonio Jr. is [...] COPD, former smoker, who presented to the [facility] ED on 02/26/24 with acute flashing lights in the left eye followed by complete blindness for 2-3 minutes that spontaneously resolved. Imaging at [facility] included CTH showing Probable right parietal low-attenuation within the deep white matter extending to the cortex. I favor a subacute or chronic infarct. This represents change from prior study. CTA H/N showed, severe hemodynamically significant stenosis of the left internal carotid artery origin similar prior examination with estimated stenosis of 99% . Patient subsequently transferred to [facility] under Stroke Neurology for further workup and management of suspected symptomatic L ICA with critical stenosis. Upon arrival to [facility], patient was HDS and NIH [...] visit. Either the patient or their legal telemarketing representative has been informed of the risks and benefits of -- and alternatives to -- treatment through a remote evaluation and consents to proceed with the evaluation remotely. 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 ([facility]) 09/03/2022 Dyslipidemia GERD (gastroesophageal reflux disease) Heart failure, acute systolic ([facility]) Hypertension Hypothyroid Myocardial infarct, old Occlusion and stenosis of carotid artery without mention of cerebral infarction Prostate cancer ([facility]) 2020 PVD (peripheral vascular disease) ([facility]) 11/17/2012 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 Systolic heart failure ([facility]) Thyroid disorder 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 kidney disease, unspecified CKD stage, unspecified whether longterm insulin use ([facility]) 04/26/2023 Ventricular tachycardia ([facility]) 04/28/2012 PAST SURGICAL HISTORY Procedure Laterality [...] Artery Disease Father Heart Attack Father fatal NE at age 77 Ischemic Heart Disease Brother CABGx6 first at age 72 No Known Problems Maternal Grandmother No Known Problems Maternal Grandfather No Known Problems Paternal Grandmother No Known Problems Paternal Grandfather No Known Problems Daughter No Known Problems Daughter No Known Problems Daughter other (Other) Other paternal cousin at age 50 of [place] Social History Tobacco Use Smoking status: Former [...] (NITROQUICK) 0.4 mg SL tablet as directed. [address] LIGHT THYROID 15 mg tablet Take 15 mg [...] vibration. Coordination: Rapid alternating movements symmetric bilaterally. Ntbmqz-ba-pepn, bssb-kx-umsk without dysmetria bilaterally. Reflexes: 2+/4 reflexes symmetric [...] coordination (not separately reported) SIGNATURE Luís Skinner APRN.MILK INSPECTOR CC No referring provider defined for this encounter. Samm Thompson [address] [place] [address] documented in this encounter [facility] 03-18-2024 Note [facility] 03-06-2024 Note [facility] 03-06-2024 History of Presen t illness Narrative [facility] Auto Mechanics Teacher Transitional Care Management Phone Call A transitional [...] 03/11/2024 11:20 AM CHARU KINCAID [facility] [phone] 03/18/2024 2:05 PM LUÍS SKINNER [place] [facility] [phone] 03/24/2024 1:00 PM LAB [facility] [phone] 03/30/2024 1:30 PM EKGJ1-4 MAIN Vt Karina [facility] [phone] 03/30/2024 2:00 PM IMAGING CLINICIAN Manolo Collins [facility] [phone] 03/30/2024 2:30 PM EFREN BRADY [facility] [phone] 03/30/2024 3:30 PM ECHO J1-5 CARD MAIN Vt Karina [facility] [phone] 03/31/2024 1:15 PM Yung ANDRADE [facility] [phone] 03/31/2024 1:30 PM [facility] [phone] Reviewed and patient plans on attending appointment. [...] of the call. Ema Lyn RN Nurse Auto Mechanics Teacher, [facility] March 06, 2024 11:58 AM documented in this encounter [facility] 03-05-2024 Note [facility] 03-05-2024 Note [facility] 03-04-2024 Note [facility] 03-04-2024 Note [facility] 03-04-2024 Note [facility] 03-04-2024 Note [facility] 03-04-2024 Note [facility] 03-04-2024 Note [facility] 03-03-2024 Note [facility] 03-03-2024 Note HNO ID: [id number] Author: TREVOR MENDOSA RN Service: Nursing Author Type: Registered Nurse Type: Nursing Progress Note Filed: 03/03/2024 06:45 Note Text: 0643: CMU alert for pt having 11 beats of V.Tach. NSGY BEV Katz notified [facility] 03-02-2024 Note Date of Procedure 03/02/2024. [employer] Derivatives Trader: GABI. Start time: 2:50 PM. Stop time: 2:57 PM. Patient is ok with testing with one more person Patient is not allergic to adhesive. Reliability Right Eye Good. Left Eye Good. Notes Inf defect OU does not follow midline ZEISS 03-02-2024 Note [facility] 03-02-2024 History of Presen t illness Narrative SDA; inpt consult Cerebrovascular acci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) PMH ocular migraines, ischemic stroke '21 (no deficit), asymptomatic R carotid stenosis (s/p R CEA '12), HTN, CAD/NE s/p CABG, HFrEF (LVEF 28% 02/19/24), severe [...] minutes and self-resolved. He presented to OSH ([place], [place]). CTH negative for acute findings, but CTA demonstrated high grade MELIA stenosis. He was initiated on heparin infusion and transferred to [facility] for further care. US carotid on admission demonstrates MELIA stenosis 70-99%. Patient also had + TCD emboli monitoring (5MEEs) in [facility]. - VISUAL FIELD 24-2 OU (BOTH EYES): [...] Susi Whitehead OD documented in this encounter [facility] 03-02-2024 Note [facility] 03-02-2024 Note [facility] 03-02-2024 Note [facility] 03-02-2024 Note [facility] 02-28-2024 Telephone encounter Note Called patients daughter. Unable to provide timing on a bed, but provided therapeutic communication. Charu has no further questions at this time. Consuelo Gambino RN [facility] 02-28-2024 Miscellaneous Notes Called patients daughter. Unable [...] Rose, 1940). Yes Number to return call [phone] Reason for Call: Patient Question/Update: Patient's daughter would like to know the status of her dad preadmission details. Daughter states patient has been waiting since February 26. Please call her at the above number. Thank you calling [facility]. You will receive a return call within 48 hours ( or 2 business days if close to the weekend). If you feel that this is an urgent issue and needs immediate attention, it is recommended that you contact your primary care provider office or proceed to your nearest Urgent Care Center of Emergency Room ED for evaluation/treatment. documented in this encounter [facility] 02-28-2024 Telephone encounter Note CV PHONE Name of caller : Charu Relationship to patient : Daughter If not self Will need patient permission to release results or disclose health information with called documented in fyi. Patient identified by Name and Date of . ( José Miguel Hudsoncarter Rose, 1940). Yes Number to return call [phone] Reason for Call: Patient Question/Update: Patient's daughter would like to know the status of her dad preadmission details. Daughter states patient has been waiting since February 26. Please call her at the above number. Thank you calling [facility]. You will receive a return call within 48 hours ( or 2 business days if close to the weekend). If you feel that this is an urgent issue and needs immediate attention, it is recommended that you contact your primary care provider office or proceed to your nearest Urgent Care Center [facility] Emergency Room ED for evaluation/treatment. [facility] Work Phone: 02-27-2024 Telephone encounter Note Patient's daughter phoned. She stated that her father called earlier in the evening with stroke -like symptoms- loss of vision in one eye that returned, squiggley lines . He was taken to the ED and is in the observation unit. She would like him to be transferred to [facility] - told her to ask for a transfer. Shannon Mcnair APRN.MILK INSPECTOR [facility] Work Phone: 02-27-2024 Miscellaneous Notes Patient's daughter phoned. She stated that her father called earlier in the evening with stroke -like symptoms- loss of vision in one eye that returned, squiggley lines . He was taken to the ED and is in the observation unit. She would like him to be transferred to [facility] - told her to ask for a transfer. Shannon Mcnair APRN.MILK INSPECTOR documented in this encounter [facility] 02-27-2024 Note [facility] 02-27-2024 History of Presen t illness Narrative Vanesa Lozada Plan of Care Received a transfer request from [facility] in [facility] (not located in [facility]). Spoke to ED physician Dr. Guido [...] COPD, former smoker, who presents to the [facility] ED with acute flashing lights in the [...] do not have timing on beds at [facility] and he may be a CEA candidate. [...] hypoperfusion. Plan: - Level 1 transfer to [facility]. Asked the OSH to update us [...] can be finalized once patient arrives to [facility] Aravind Arriaga MD Vascular Neurology Fellow, PGY-5 Supervising stroke staff: Dr. Millard documented in this encounter [facility] 2024 Note HNO ID: [id number] Author: RAMONA MELVIN MD Service: Cardiovascular Medicine Author Type: Fellow Type: Progress Notes Filed: 03/05/2024 16:38 Note Text: Documentation Query Please clarify the Type Acuity of CHF: acute on chronic systolic CHF [facility] 2024 Note [facility] 2024 Note [facility] 2024 Note [facility] 2024 Note [facility] 2024 Note [facility] 2024 Note [facility] 02-18-2024 Note [facility] 02-18-2024 Note [facility] 02-18-2024 Note [facility] 02-18-2024 Note [facility] 02-17-2024 Note [facility] 02-17-2024 History of Presen t illness Narrative Images from the original note were not included. [facility] [place] [facility] CHIEF [...] ACTIVE PROBLEM LIST Atherosclerotic Heart Disease of [place] Coronary Artery With Other Forms of Angina Pectoris ([facility]) SUMMARY Hyperlipidemia Preop Testing Heart Failure, Acute Systolic ([facility]) Carotid Stenosis Atrial Fib/Flutter, Transient Occlusion and Stenosis of Carotid Artery Without Mention of Cerebral Infarction S/P Cabg (Coronary Artery Bypass Graft) Sweating Coronary Artery Disease Involving Coronary Bypass Graft of [place] Heart Without Angina Pectoris Systolic Heart Failure ([facility]) Pvd (Peripheral Vascular Disease) ([facility]) Syncope Stroke (Cerebrum) ([facility]) Acute On Chronic Combined Systolic and Diastolic Congestive Heart Failure ([facility]) Carotid Stenosis, Asymptomatic, Bilateral Type 2 Diabetes Mellitus With Diabetic Chronic Kidney Disease, Unspecified Ckd Stage, Unspecified Whether Machine Baster Insulin Use ([facility]) Malnutrition of Moderate Degree (Hcc) Stage 3b [...] (NITROQUICK) 0.4 mg SL tablet as directed. [address] LIGHT 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 aspirin, [...] Soft Tissues: Clear saliva extruded from bilateral Macon's and Sari's ducts. Tongue soft and non-tender [...] be done with local anesthesia.(Confirmed) Please call [phone] to schedule for tooth extractions once patient [...] Dior Nj DDS documented in this encounter [facility] 02-17-2024 Note [facility] 02-17-2024 Note [facility] 02-14-2024 Note [facility] 02-14-2024 History of Presen t illness Narrative Study name: EMPOWER Trial IRB# [id number] PI: Andrés Savage Pt exited from trial--plan for commercial treatment. Die Casting Machine Setter: Krystal Rcihey Pager #: [phone] documented in this encounter [facility] 02-14-2024 Note [facility] 02-14-2024 History of Presen t illness [...] is needed on pre-op day. Priscilla Rai APRN.MILK INSPECTOR [facility]. Patient to be admitted prior on 02/14 and will remain in the house for the procedure. Please schedule José Miguel Antonio Jr., [phone] for Mitral Valve Transcatheter Qbjk-zl-Onjf Repair (M-AZAEL) w/ [place] MitraClip Procedure on: 02/18/[address] Structural lab schedule on : 02/18/24 at 10:30am CPT: 80714 Diag: I34.0 COMPENSATION DIRECTOR: Dr Brady Performing Physician: Dr rain OR: 81 1st Surgeon: TBKurtis MERRITT schedule- intra/op Patient also needs INSURANCE PRECERTIFICATION SURVIVAL RATE GREATER THAN 1 YEAR____yes___(LOOKING FOR A YES) EF ___20__ Thank-you. Request sent to scheduling. Priscilla Rai APRN.DOROTHY documented in this encounter [facility] 02-13-2024 Note [facility] 02-13-2024 History of Presen t illness [...] Priscilla Rai APRN.CNP documented in this encounter [facility] 02-12-2024 Telephone encounter Note Attempted to contact daniel Box. Clinical has been discussed with Dr. Brady. Patient should be admitted to the hospital for optimization and reassess by ENT. Marce Arana APRN.CNS [facility] 02-12-2024 Miscellaneous Notes Attempted to contact daniel [...] recommendation she will have him come to [place]. Unfortunately, based upon his symptoms, worsening MR on ECHO and increasing BNP, he may require admission for optimization. In the meantime will also try to obtain a sooner ENT consult. Marce Arana APRN.CNS Patients daughter called with concerns regarding the patient and the study that he is a part of. She would like to speak with you regarding her concerns, Daniel Box [phone]. Clover documented in this encounter [facility] 02-12-2024 Telephone encounter Note I spoke with [...] recommendation she will have him come to [place]. Unfortunately, based upon his symptoms, worsening MR on ECHO and increasing BNP, he may require admission for optimization. In the meantime will also try to obtain a sooner ENT consult. Marce Arana APRN.PARDEEP [facility] 02-12-2024 Telephone encounter Note Patients daughter called with concerns regarding the patient and the study that he is a part of. She would like to speak with you regarding her concerns, Daughter Charu [phone]. Clover T [facility] Work Phone: 02-12-2024 Note [facility] 02-12-2024 History of Presen t illness [...] the next couple of days. Marce Arana APRN.SALVAGE DIVER documented in this encounter [facility] 02-11-2024 Telephone encounter Note Study name: [facility] Trial IRB# [id number] PI: Andrés Savage Pt's gfr dropped--spoke to Dr. Fernandes. Plan for med changes with f/u labs this Saturday. Spoke with pt's daughter. Plan to pause trial enrollment as he doesn't fit with this gfr. Will reassess after labs. Also informed that clinical team is re-reviewing imaging for clips. Die Casting Machine Setter: Krystal Richey Pager #: [phone] [facility] 02-11-2024 Miscellaneous Notes Study name: [facility] Trial IRB# [id number] PI: Andrés Savage Pt's gfr dropped--spoke to Dr. Fernandes. Plan for med changes with f/u labs this Saturday. Spoke with pt's daughter. Plan to pause trial enrollment as he doesn't fit with this gfr. Will reassess after labs. Also informed that clinical team is re-reviewing imaging for clips. Die Casting Machine Setter: Krystal Richey Pager #: [phone] documented in this encounter [facility] 02-05-2024 Note [facility] 02-05-2024 History of Presen t illness [...] were performed per protocol by a blinded leno sewer: Berta Barry NYHA completed: Yes KCCQ-12 questionnaire [...] up requirements/schedule Materials dispensed: Coordinator Contact Card Die Casting Machine Setter: Berta Barry [id number] documented in this encounter [facility] 01-30-2024 Note [facility] 01-30-2024 History of Presen t illness Narrative Summary: 18-600 Empower Study Called pt's daughter Charu to give update on Empower study, and to schedule screening visit. documented in this encounter [facility] 01-14-2024 Telephone encounter Note January 14, 2024 Name: José Miguel Juarez Paco Rose Patient Contact Number: [phone] - daughter's cell - Charu Cain Date of last office visit: 01/10/2024 Reason For Call: Medication Issue/Question: Patient's daughter is asking if after reviewing labs are there any medication changes? Please call daughter's phone - Charu Cain Physician: Paulina Fernandes MD Patient was informed that non-urgent calls may be returned within the next three business days. Yes Hillary Martinez [facility] 04-30-2024 Miscellaneous Notes January 14, 2024 Name: José Miguel Antonio Jr. Patient Contact Number: [phone] - daughter's cell - Charu Cain Date of last office visit: 01/10/2024 Reason For Call: Medication Issue/Question: Patient's daughter is asking if after reviewing labs are there any medication changes? Please call daughter's phone - Charu Travistheron Physician: Paulina Fernandes MD Patient was informed that non-urgent calls may be returned within the next three business days. Yes Hillary Martinez documented in this encounter [facility] 01-10-2024 Evaluation note Diagnosis IRB 18-600 Empower Assessment of the CARILLON Mitral Contour System in Treating Functional Mitral Regurgitation Associated with Heart Failure PI: Hussein- Primary documented in this encounter [facility] History of Present illness Narrative* Krystal [...] provided informed consent for review previously via [employer]. Study related questions were addressed. Pt agreeable [...] Brady info on card. Krystal Richey RN [phone] [facility] in [facility] Instructions* Patient Instructions* Paulina Fernandes MD - 01/10/2024 11:19 AM EDT -blood work today -screening for EMPOWER study -Will likely start low dose ACEi or ARB after I review your labs documented in this encounter[facility] History of Present illness Narrative* Paulina Fernandes MD - 01/10/2024 10:15 AM EDT Images from the original note were not included. [facility] [place] [facility] SECTION OF HEART FAILURE and CARDIAC TRANSPLANT MEDICINE OUTPATIENT VISIT DATE January 10, 2024 OUTPATIENT VISIT TYPE Consultation PRIMARY CARE PHYSICIAN: Samm Thompson [address] [place] [address] CHIEF COMPLAINT: HFrEF, ischemic CM, severe FMR NURSING INTAKE (Patient s concerns and/or recent hospitalizations/ER visits): José Miguel Antonio Jr. is a 83 year old male from [place], [place] referred by Dr. Brady for GDMT. 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 Systolic heart failure ([facility]) Thyroid disorder 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 kidney disease, unspecified CKD stage, unspecified whether longterm insulin use ([facility]) 04/26/2023 Ventricular tachycardia ([facility]) 04/28/2012 PAST SURGICAL HISTORY Procedure Laterality [...] Artery Disease Father Heart Attack Father fatal [place] at age 77 Ischemic Heart Disease Brother CABGx6 first at age 72 No Known Problems Maternal Grandmother No Known Problems Maternal Grandfather No Known Problems Paternal Grandmother No Known Problems Paternal Grandfather No Known Problems Daughter No Known Problems Daughter No Known Problems Daughter other (Other) Other paternal cousin at age 50 of [place] ALLERGIES: ALLERGIES Allergen Reactions Latex Rash Adhesive [...] (NITROQUICK) 0.4 mg SL tablet as directed. [address] LIGHT 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 aspirin, [...] non-medical management as above. Paulina Fernandes MD [facility] Section Of Heart Failure and Cardiac Transplant Medicine [facility] [place] [facility] Desk [id number] [phone] documented in this encounterMount Carmel [facility] System04-26-2024 [facility] Evaluation note* Diagnosis IRB 18-600 Empower Assessment of the CARILLON Mitral Contour System in Treating Functional Mitral Regurgitation Associated with Heart Failure PI: Hussein- Primary documented in this encounter [facility]04-18-2024 Miscellaneous Notes* Telephone Encounter - Velma Hall [...] 02, 2024 2:58 PM documented in this encounterMount [facility]el [facility] System04-18-2024 [facility]04-18-2024 History of Present illness Narrative* Samiragregory Krystal [...] if he is optimized. Krystal Richey RN [phone] documented in this encounterMount [facility]el [facility] System04-17-2024 [facility]04-17-2024 History of Present illness Narrative* Krystal Richey - 01/01/2024 4:18 PM EDT Study name: EMPOWER Trial IRB# [id number] PI: Andrés Savage Contacted pt regarding above listed trial, as his daughter did not reach out to me today. He statedthat I should wait for her to call me. Reinforced hours and contact number. We will call him next week if she doesn't reach out. Die Casting Machine Setter: Krystal Richey Pager #: [phone] documented in this encounterMount [facility]el [facility] System04-15-2024 [facility]04-15-2024 History of Present illness Narrative* Krystal Richey - 12/30/2023 3:28 PM EDT IRB 18-600 [facility] Assessment of the CARILLON Mitral Contour [...] Follow up appointment added. Krystal Richey RN [phone] documented in this encounterMount [facility]04-11-2024 [facility] History of Present illness Narrative* Kristina [...] by: Kristina Ceja APRN.CNP documented in this encounterMount [facility]el [facility] System04-[facility]-2024 History of Present illness Narrative* Efrne Brady MD - 12/26/2023 11:15 AM EDT [facility] [place] Jose Martin Silva Department of Cardiovascular Medicine [...] combined systolic and diastolic congestive heart failure ([facility]) 09/03/2022 Dyslipidemia GERD (gastroesophageal reflux disease) Heart failure, acute systolic ([facility]) Hypertension Hypothyroid Myocardial infarct, old Occlusion and stenosis of carotid artery without mention of cerebral infarction Prostate cancer ([facility]) 2020 PVD (peripheral vascular disease) ([facility]) 11/17/2012 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 Systolic heart failure ([facility]) Thyroid disorder 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 kidney disease, unspecified CKD stage, unspecified whether longterm insulin use ([facility]) 04/26/2023 Ventricular tachycardia ([facility]) 04/28/2012 Surgical History: PAST SURGICAL HISTORY Procedure [...] Artery Disease Father Heart Attack Father fatal [place] at age 77 Ischemic Heart Disease Brother CABGx6 first at age 72 No Known Problems Maternal Grandmother No Known Problems Maternal Grandfather No Known Problems Paternal Grandmother No Known Problems Paternal Grandfather No Known Problems Daughter No Known Problems Daughter No Known Problems Daughter other (Other) Other paternal cousin at age 50 of [place] Social History: Social History Tobacco Use Smoking [...] (NITROQUICK) 0.4 mg SL tablet as directed. [address] LIGHT 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 aspirin, [...] CEA (2012) He was recently admitted to [facility] in Sep and November with SANTILLAN - [...] guide any procedure. Efren Brady MD, [facility] laundry machine tender, [facility] Staff, Section of Cardiovascular Imaging Department of Cardiovascular Medicine [facility] [place] [facility] documented in this encounterMount Carmel Health System04-11-2024 [facility] Miscellaneous Notes* Telephone Encounter - Sandy Sales - 12/17/2023 12:08 PM EDT December 17, 2023 Patient Contact Number: [phone] Patient last seen within the last year: Yes Date of last office visit: 12/12/2023 Reason For Call: Daughter called to verify okay for Mr. Antonio to start cardiac rehabilitation. Physician: Virgil Carrillo MD Patient was informed that non-urgent calls may be returned within the next three business days. Yes Sandy Sales documented in this encounterMount Carmel Health System03-28-2024 Instructions* Patient Instructions* Carmelina Ramos, FOLDER OPERATOR.MILK INSPECTOR - 12/12/2023 2:38 PM EDT -I will [...] 03/24/2024 1:00 PM LAB HEMRAD GAMALIEL LABSAN MA GAMALIEL 03/31/2024 1:15 PM Yung Andrade MD RADTSA MA GAMALIEL 03/31/2024 1:30 PM LAB [facility] LABSAN MA GAMALIEL documented in this encounterMount Carmel Health System03-28-2024 History of Present illness Narrative* Carmelina Ramos APRN.MILK INSPECTOR - 12/12/2023 1:30 PM EDT Images from the original note were not included. [facility] [place] Jose Martin Silva Department of Cardiovascular Medicine SECTION OF CARDIOVASCULAR IMAGING OUTPATIENT VISIT DATE December 12, 2023 OUTPATIENT VISIT TYPE ESTABLISHED PRIMARY CARE PHYSICIAN: Samm Thompson [address] [place] [address] REFERRING PHYSICIAN: No referring provider defined for [...] He was admitted to the hospital in [place] on 11/18 for FVO, diuresed with IV [...] combined systolic and diastolic congestive heart failure ([facility]) 09/03/2022 Dyslipidemia GERD (gastroesophageal reflux disease) Heart failure, acute systolic ([facility]) Hypertension Hypothyroid Myocardial infarct, old Occlusion and stenosis of carotid artery without mention of cerebral infarction Prostate cancer ([facility]) 2020 PVD (peripheral vascular disease) ([facility]) 11/17/2012 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 Systolic heart failure ([facility]) Thyroid disorder 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 kidney disease, unspecified CKD stage, unspecified whether technician terminal and repeater insulin use ([facility]) 04/26/2023 Ventricular tachycardia ([facility]) 04/28/2012 PAST SURGICAL HISTORY Procedure Laterality [...] Artery Disease Father Heart Attack Father fatal NE at age 77 Ischemic Heart Disease Brother CABGx6 first at age 72 No Known Problems Maternal Grandmother No Known Problems Maternal Grandfather No Known Problems Paternal Grandmother No Known Problems Paternal Grandfather No Known Problems Daughter No Known Problems Daughter No Known Problems Daughter other (Other) Other paternal cousin at age 50 of [place] ALLERGIES: ALLERGIES Allergen Reactions Latex Rash Adhesive Tape (Keyanna* Rash MEDICATIONS: furosemide (LASIX) 40 mg tablet Take 40 mg by mouth once daily. Cholecalciferol, Vitamin D3, 25 mcg (1,000 unit) cap Take 1,000 Units by mouth as needed. nitroglycerin sublingual (NITROQUICK) 0.4 mg SL tablet as directed. [address] LIGHT 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 aspirin, [...] FOR LVH, MAY BE NORMAL VARIANT ( [place]ulton product ) NONSPECIFIC INTRAVENTRICULAR BLOCK ABNORMAL ECG Confirmed by ANAM LUTZ MD ([id number]) on 11/21/2023 10:12:55 AM NT Pro BNP [...] He was admitted to the hospital in [place] on 11/18 for FVO, diuresed with IV [...] as scheduled in December -follow-up with local glass processing worker as scheduled this month -pt has been scheduled to see Dr. Brady for evaluation for Mitraclip -advised to call Dr. Carrillo's office if increase in weight, SOB, swelling -recommendation and follow-up discussed with Mr. Antonio and his daughter, Charu Future Appointments Date Time Provider Department Center 12/26/2023 11:15 AM Efren Brady MD CARIMN Mn J [facility] 01/10/2024 10:15 AM Paulina Fernandes MD CARD CHF JENNIFER Mn J Bldg 02/18/2024 9:00 AM ECHO A17 CARD MAIN CFLAMN Mn A Bldg 02/18/2024 11:30 AM EKGJ1-4 MAIN EKGF16 Mn J dg 02/18/2024 12:30 PM Virgil Carrillo MD CARIMN Mn J Bldg 03/24/2024 1:00 PM LAB HEMJEANNINE ALSTON LABSAN MA GAMALIEL 03/31/2024 1:15 PM Yung Andrade MD RADTSA [place] S[place]KY 03/31/2024 1:30 PM LAB HEMJEANNINE ALSTON NOMIAN MA GAMALIEL I personally interviewed, confirmed and edited the above information if obtained by others. CONTACT INFORMATION: Carmelina Ramos APRN.DOROTHY documented in this encounterMount Carmel Health System03-28-2024 [facility]-2024 NoteMcC[facility]03-12-2024 Miscellaneous Notes* Telephone Encounter - Germaine Morales - 11/26/2023 3:30 PM EDT Patient's daughter called stating patient had been admitted to a hospital in [place] for fluid overload. Patient was given IV Lasix to remove the fluid. Local auto tester is planning a Mitral Valve Clip and want him to have the clip done sooner ratherthan later. Patient is wanting to discuss with Dr. Carrillo before he makes a decision. I advised the daughter, that I would schedule Mr. Antonio to see one of our [address] LIGHT's post discharge, butwould also let Dr. Carrillo know that he would like to speak with him regarding the MVR. Daughter understood, and stated that she would get [place] records and images sent to us. documented in this encounterMount Carmel Health System03-11-[address]. AVS sent to [facility] via [facility]03-11-2024 Note Physical Therapy Cancellation note for Saturday11/25/23 pm Pt has been discharged from the hospital to return home , no therapy services needed . Attempted time : 15:05-15:06[facility]03-11-2024 Note [facility]03-10-2024 NoteMcC[facility]03-10-2024 NoteMcCullough-[facility]03-10-2024 NoteSocial worker advised patient needs [facility]. Referral sent. Awaiting accepting. Mitzy Miguel accepted. AVS updated and sent to Mitzy miguel. No further OTM needs at this time.[facility]03-10-2024 NoteMcC[facility]03-09-2024 NoteMcC[facility] 11-23-2023 NoteMcCull[facility]03-09-2024 NoteMcC[facility]03-09-2024 NoteMcC[facility] 11-22-2023 NoteMcC[facility]03-08-2024 NoteMcC[facility]03-08-2024 NoteMcC[facility] 11-22-2023 NoteMcCull[facility]03-07-2024 NoteMcC[facility]03-07-2024 NoteMcC[facility] 11-21-2023 NoteMcC[facility]03-06-2024 NoteMcC[facility]03-06-2024 NoteMcC[facility] 11-20-2023 NoteMcC[facility]03-06-2024 NoteMcC[facility]03-06-2024 NoteMcC[facility] 11-20-2023 NoteMcC[facility]03-06-2024 NoteMcC[facility]03-06-2024 NoteMcC[facility] 11-19-2023 NoteMcC[facility]03-04-2024 NoteMcCullough-[facility]02-14-2024 NoteM[facility]02-14-2024 History of Present illness Narrative* Virgil Carrillo MD - 10/30/2023 9:00 AM EST Images from the original note were not included. [facility] [place] Jose Martin Silva Department of Cardiovascular Medicine SECTION OF CARDIOVASCULAR IMAGING OUTPATIENT VISIT DATE October 30, 2023 OUTPATIENT VISIT TYPE ESTABLISHED PRIMARY CARE PHYSICIAN: Samm Thompson [address] [place] [address] REFERRING PHYSICIAN: Tiarra Lopez [address] [facility] [address] CHIEF COMPLAINT: Follow up HISTORY OF PRESENT [...] without mention of cerebral infarction Prostate cancer ([facility]) 2020 PVD (peripheral vascular disease) ([facility]) 11/17/2012 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 Systolic heart failure ([facility]) Thyroid disorder 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 kidney disease, unspecified CKD stage, unspecified whether technician terminal and repeater insulin use ([facility]) 04/26/2023 Ventricular tachycardia ([facility]) 04/28/2012 PAST SURGICAL HISTORY Procedure Laterality [...] Artery Disease Father Heart Attack Father fatal NE at age 77 Ischemic Heart Disease Brother CABGx6 first at age 72 No Known Problems Maternal Grandmother No Known Problems Maternal Grandfather No Known Problems Paternal Grandmother No Known Problems Paternal Grandfather No Known Problems Daughter No Known Problems Daughter No Known Problems Daughter other (Other) Other paternal cousin at age 50 of [place] ALLERGIES: ALLERGIES Allergen Reactions Latex Rash Adhesive Tape (Keyanna* Rash MEDICATIONS: furosemide (LASIX) 40 mg tablet Take 40 mg by mouth once daily. Cholecalciferol, Vitamin D3, 25 mcg (1,000 unit) cap Take 1,000 Units by mouth as needed. nitroglycerin sublingual (NITROQUICK) 0.4 mg SL tablet as directed. [address] LIGHT 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 aspirin, [...] FOR LVH, MAY BE NORMAL VARIANT ( Fulton product ) AGE UNDETERMINED ABNORMAL ECG IMPRESSION: [...] ?20 mL/minute/1.73 m2, N Engl J Med. 2020;383(15):4342-7622. This should be considered if his repeat GFR is stable. He is getting 1 locally on and will reach out to me with the results Follow-up here in 3 months with an echo to review the degree of MR and consider further management options. I am also recommending that he establish care with our heart failure team here at [facility] Main campus CONTACT INFORMATION: Virgil Carrillo MD, PhD, [facility] Staff, Section of Cardiovascular Imaging Department of Cardiovascular Medicine [facility] [place] [facility] documented in this encounterMount Carmel Health System02-12-2024 NoteMcCullough-[facility]02-07-2024 NoteUnProMed[facility]01-25-2024 Note [facility]01-25-2024 NoteUnProMedica [facility]iance [facility] Hospital01-16-2024 NoteM[facility]01-14-2024 NoteUnProMedica [facility]iance [facility] Hospital01-13-2024 NoteMcCullough-[facility] 09-28-2023 NoteMcCullough-Hyde [facility]01-13-2024 NoteHNO ID: [id number] Author: NOTE, INTERFACE, ? Service: ? Author Type: ? Type: Progress Notes Filed: 09/28/2023 02:16 Note Text: Epic Scheduled Downtime: 09/28/2023 1:00:00 AM to 09/28/2023 2:04:22 [facility]12-12-2023 Miscellaneous Notes* Telephone Encounter - Carina Sue - 08/27/2023 11:21 AM EST Left a message with the patient regarding the cancellation of 10/22/2023 with . Informed the patient of the new scheduled appointment on 10/29/2023 with . documented in this encounterMount Carmel Health System12-07-2023 Miscellaneous Notes* Telephone Encounter - Brenden Pollard - 08/22/2023 12:48 PM EST Call from pharmacy requesting refill. Requested Prescriptions Pending Prescriptions Disp Refills lisinopril (ZESTRIL) 5 mg tablet 90 tablet 3 Sig: Take 1 tablet by mouth once daily. Patient last seen 06-12-23 - Seen Alison Pollard documented in this encounterMount Carmel Health System08-11-2023 History of Present illness Narrative* Zahra Pierre MD - 04/26/2023 7:01 AM EDT Images from the original note were not included. [facility] [place] Jose Martin Silva Department of Cardiovascular Medicine SECTION OF CARDIOVASCULAR IMAGING OUTPATIENT VISIT DATE April 26, 2023 OUTPATIENT VISIT TYPE ESTABLISHED PRIMARY CARE PHYSICIAN: Samm Thompson [address] [place] [address] REFERRING PHYSICIAN: Samm Thompson [address] [facility] [phone] CHIEF COMPLAINT: Follow up HISTORY OF PRESENT [...] combined systolic and diastolic congestive heart failure ([facility]) 09/03/2022 Dyslipidemia GERD (gastroesophageal reflux disease) Heart failure, acute systolic ([facility]) Hypertension Hypothyroid Myocardial infarct, old Occlusion and stenosis of carotid artery without mention of cerebral infarction Prostate cancer ([facility]) 2020 PVD (peripheral vascular disease) ([facility]) 11/17/2012 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 Systolic heart failure ([facility]) Thyroid disorder 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 kidney disease, unspecified CKD stage, unspecified whether technician terminal and repeater insulin use ([facility]) 04/26/2023 Ventricular tachycardia ([facility]) 04/28/2012 PAST SURGICAL HISTORY Procedure Laterality [...] Artery Disease Father Heart Attack Father fatal NE at age 77 other (atrial fibrillation) Mother other (CHF) Mother other (Other) Mother at age 96 Ischemic Heart Disease Brother CABGx6 first at age 72 No Known Problems Daughter No Known Problems Daughter No Known Problems Daughter other (Other) Other paternal cousin at age 50 of [place] ALLERGIES: ALLERGIES Allergen Reactions Latex Rash Adhesive [...] FOR LVH, MAY BE NORMAL VARIANT ( Fulton product ) NONSPECIFIC T WAVE ABNORMALITY ABNORMAL ECG Confirmed by MD VIET, [facility] ([id number]) on 06/26/2022 4:47:04 PM IMPRESSION AND PLAN: [...] on low- dose MARGARETTE inhibitor, beta-jasbir, and RFMO2fwdrceqfe, as well as low-dose torsemide. As previously noted, he has not tolerated sacubitril/valsartan or spironolactone. He was previously in phase 2 cardiac rehabilitation, but this was stopped when he had a minor stroke, and I think it would be good for him to reinitiate this. Follow-up in 6 months. CONTACT INFORMATION: Zahra Pierre MD 12:56 PM April 27, 2023 documented in this encounterMount Carmel Health System03-16-2023 Miscellaneous Notes* Telephone Encounter - Darlene Martinez - 11/29/2022 9:11 AM EDT Mr. Antonio decided not to move forward with surgery at this time and would like to cancel. Darlene Rajput Alteration Inspector documented in this encounterMount Carmel Health System03-16-2023 History of Present illness Narrative* John Jefferson MD - 11/29/2022 12:00 AM EDT NAME: JOSÉ MIGUEL ANTONIO JR. [facility] NO: [id number] DATE OF SERVICE: 11/29/2022 DATE OF : 1940 He let us know he has changed his mind about proceeding with his carotid surgery. We will wait to see what he says about moving ahead and when he wants to reschedule. John Jefferson M.D. SPL/089 Audio #: [id number] Date Dictated: 11/29/2022 14:25:32 Date Typed: 11/30/2022 09:05:53 Date Revised: documented in this encounterMount Carmel Health System02-15-2023 Miscellaneous Notes* Telephone Encounter - Lidia Mccloud - 10/31/2022 11:58 AM EST Called patient José Miguel to clarify surgery date and advise pre scheduled date requested, asked if I could look up his brothers surgery information, advised I could not my apologizes,to also check as he has EKG/Echo scheduled with Cardiac scheduled day after surgery ..Tiffany Clifton documented in this encounterMount Carmel Health System02-10-2023 History of Present illness Narrative* Zahra Pierre MD - 10/26/2022 11:38 AM EST Images from the original note were not included. [facility] [place] Jose Martin Silva Department of Cardiovascular Medicine SECTION OF CARDIOVASCULAR IMAGING OUTPATIENT VISIT DATE October 26, 2022 OUTPATIENT VISIT TYPE ESTABLISHED PRIMARY CARE PHYSICIAN: Samm Thompson MD [address] [place] [address] REFERRING PHYSICIAN: Zahra Pierre [address] [facility] [id number] CHIEF COMPLAINT: Follow up HISTORY OF PRESENT [...] combined systolic and diastolic congestive heart failure ([facility]) 09/03/2022 Dyslipidemia GERD (gastroesophageal reflux disease) Heart failure, acute systolic ([facility]) Hypertension Hypothyroid Myocardial infarct, old Occlusion and stenosis of carotid artery without mention of cerebral infarction Prostate cancer ([facility]) 2020 PVD (peripheral vascular disease) ([facility]) 11/17/2012 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 Systolic heart failure ([facility]) Thyroid disorder Ventricular tachycardia 04/28/2012 PAST [...] Artery Disease Father Heart Attack Father fatal NE at age 77 other (atrial fibrillation) Mother other (CHF) Mother other (Other) Mother at age 96 Ischemic Heart Disease Brother CABGx6 first at age 72 No Known Problems Daughter No Known Problems Daughter No Known Problems Daughter other (Other) Other paternal cousin at age 50 of [place] ALLERGIES: ALLERGIES Allergen Reactions Latex Rash Adhesive [...] FOR LVH, MAY BE NORMAL VARIANT ( Fulton product ) NONSPECIFIC T WAVE ABNORMALITY ABNORMAL ECG Confirmed by MD VIET, HEBA ([id number]) on 06/26/2022 4:47:04 PM IMPRESSION AND PLAN: [...] AM November 02, 2022 documented in this encounterMount Carmel Health System02-09-2023 Instructions* Patient Instructions* Zahra Pierre MD - 10/25/2022 4:11 PM EST OK for surgery. Do not take your lisinopril the day before and the day of surgery. Continue your other medications. Check blood work today. Return in 6 months with an echocardiogram. documented in this encounterMount Carmel Health System02-09-2023 History of Present illness Narrative* Josselin Claros RN - 10/25/2022 1:45 PM EST RADIOLOGY SERVICE PROGRESS NOTE SERVICE DATE: 10/25/2022 SERVICE TIME: 1:46 PM PATIENT IDENTITY VERIFICATION COMPLETED USING TWO (2) STANDARD IDENTIFIERS: Name and Date of confirmed by patient verbally and Name and Date of confirmed by identification band PATIENT GENDER DATA: male ALLERGIES: Reviewed and unchanged MEDICATIONS REVIEWED BY: Continuous Improvement Engineer and Josselin Claros RN PROCEDURE TYPE: NM PET Myocardial Imagin.4 mg of Regadenoson was administered at 1359 over 10 Seconds. Reversal agent used: None. and NM PET Myocardial Action Taken: POCT Blood Glucose 101 mg/dL at 1339 (QC = OK).9.2 mCi FDG-18 IV at 1416. POCT Blood Glucose 98 mg/dL at 1415 (QC = OK). Expiration date: 16JUN2025 Lot#: [id number] IV SITE: Ambulatory: A peripheral IV was started in the Right forearm with a Angio cath: 20 gauge. and A Saline lock was inserted per protocol POST EXAM PIV STATUS: Discontinued PATIENT DISCHARGED TO: Ambulatory patient, left MI department area. A Diagnostic radioactive procedure has taken place, with no further precautions necessary other than routine body substance precautions. More information regarding radiation safety can be found usingthis link: [email or web address] 20Diagnostic%20Nuclear%20Medicine%20Procedures.[email or web address] SIGNATURE: Josselin Claros RN PATIENT NAME: José Miguel Antonio Jr. DATE: October 25, 2022 TIME: 1:46 PM PAGER/CONTACT #: * Luigi Desai, TripChamp - 10/25/2022 1:45 PM EST RADIOLOGY SERVICE [...] 1416 PATIENT DISCHARGED TO: Ambulatory patient, left MI department area. A Diagnostic radioactive procedure has taken place, with no further precautions necessary other than routine body substance precautions. More information regarding radiation safety can be found usingthis link: [email or web address] 20Diagnostic%20Nuclear%20Medicine%20Procedures.pdf SIGNATURE: Madalyn Castro PATIENT NAME: José Miguel Antonio Jr. DATE: October 25, 2022 TIME: 1:32 PM PAGER/CONTACT #: documented in this encounterMount Carmel Health System01-17-2023 Nurse Note* Kathie Pavon RN - 10/02/2022 1:14 PM EST AUA 1.5 Kathie Pavon RN documented in this encounterMount Carmel Health System01-17-2023 History of Present illness Narrative* Yung Andrade [...] Yung Andrade MD cc: Samm Thompson MD [address] [place] [address] documented in this encounterMount Carmel Health System12-27-2022 Miscellaneous Notes* Telephone Encounter - Allyn Leon [...] failure (HCC) [I50.22] Coronary artery disease involving [place] coronary artery of [place] heart without angina pectoris [I25.10] Test Approved by: Aisha Benavides RN If additional orders are required route to ordering physician and to P [facility] with recommendations. If all recommended orders are present route to [facility] * Telephone Encounter - Darlene Moore - 09/07/2022 12:36 PM EST This form is used for MAIN CAMPUS APPOINTMENTS ONLY. Is this request for a Main [place] PET scan appointment? Yes: Rigging Loft Repairer: Darlene LUNA Requesting Person (Zahra Pierre): [phone] Area Code + Phone/Pager: Who do we [...] day/next day medically urgent scans please call [phone] to expedite LVEF: LV Ejection Fraction (%) Date Value 06/06/2022 20 LVEF Free text: Yes, see above. Additional comments: N/A Send requests to P CARDIAC PET MD [facility] documented in this encounterMount Carmel Health System12-19-2022 History of Present illness Narrative* John Jefferson MD - 09/03/2022 11:15 AM EST Images from the original note were not included. DATE: 07/01/2012 AGE: 72 SURGEON 1: John Jefferson M.D. OPERATION: Right carotid endarterectomy with bovine patch angioplasty. [facility] [place] DEPARTMENT OF VASCULAR SURGERY OUTPATIENT VISIT DATE September 03, 2022 OUTPATIENT VISIT TYPE CONSULTATION SERVICE DATE: 09/03/2022 SERVICE TIME: 11:53 AM PRIMARY CARE PHYSICIAN: Samm Thompson MD, MD REFERRING PROVIDER: Samm Thompson MD [address] [place] [address] Consult requested for an opinion regarding the [...] Of note, he was recently hospitalized in [place] on April for not feeling well. He [...] Artery Disease Father Heart Attack Father fatal NE at age 77 other (atrial fibrillation) Mother other (CHF) Mother other (Other) Mother at age 96 Ischemic Heart Disease Brother CABGx6 first at age 72 No Known Problems Daughter No Known Problems Daughter No Known Problems Daughter other (Other) Other paternal cousin at age 50 of [place] MEDICATIONS: therapeutic multivitamin w/ iron (THERAGRAN-M) 27-0.4 [...] for today's visit: CTA John Jefferson MD ([id number]) paged with results. Compared to prior study [...] noted. Abnormal signal suggests pre-steal. IMPRESSION: [facility] STAFF PHYSICIAN NOTE OF PERSONAL INVOLVEMENT [...] 2022 TIME: 2:20 PM documented in this encounterMount Carmel Health System11-16-2022 Miscellaneous Notes* Telephone Encounter - Ayana Jauregui - 08/01/2022 4:10 PM EST Mr Antonio's daughter called and she would like to schedule an appointment with pt advised to do so due to Carotid stenosis seen Dr jefferson in 2011 regarding right side now its the left side having issues Contact Name (If not the pt): daniel Box Home and cell number: [phone] Diagnosis: Carotid stenosis Kind Regards Ayana Sullivanshashitati documented in this encounterMount Carmel Health System11-14-2022 Miscellaneous Notes* Telephone Encounter - Mary Gross - 07/30/2022 3:11 PM EST Reason for call: Mr Antonio called,and he would like to schedule an appointment with Contact Name (If not the pt): daniel Box Home and cell number: [phone] Diagnosis: Mitral valve insufficiency, unspecified etiology Kind Regards Mary documented in this encounterMount Carmel Health System11-09-2022 Miscellaneous Notes* Telephone Encounter - Luís Crandall - 07/25/2022 3:04 PM EST Images have been pushed through into [employer]. Daughter would like you to call her to go over things as this was all completed after he saw you inorodolfoice. She can be reached at [phone] Her name is Charu documented in this encounterMount Carmel Health System09-21-2022 History of Present illness Narrative* Zahra Pierre MD - 06/06/2022 3:28 PM EDT Heart [facility] [place] Jose Martin Silva Department of Cardiovascular Medicine SECTION OF CARDIOVASCULAR IMAGING OUTPATIENT VISIT DATE June 06, 2022 OUTPATIENT VISIT TYPE ESTABLISHED PRIMARY CARE PHYSICIAN: Samm Thompson MD [address] [place] [phone] CHIEF COMPLAINT: Follow up HISTORY OF PRESENT [...] without mention of cerebral infarction Prostate cancer ([facility]) 2020 PVD (peripheral vascular disease) ([facility]) 11/17/2012 Thyroid disorder Ventricular tachycardia ([facility]) 04/28/2012 PAST SURGICAL HISTORY Procedure Laterality [...] Artery Disease Father Heart Attack Father fatal NE at age 77 other (atrial fibrillation) Mother other (CHF) Mother other (Other) Mother at age 96 Ischemic Heart Disease Brother CABGx6 first at age 72 No Known Problems Daughter No Known Problems Daughter No Known Problems Daughter other (Other) Other paternal cousin at age 50 [place] ALLERGIES: ALLERGIES Allergen Reactions Latex Rash Adhesive [...] any questions regarding this interpretation, please call [phone]. If you are unable to reach us at the number above, please feel free to contact [facility] at [phone]. IMPRESSION: Mr. Antonio is a 82 year [...] PM June 06, 2022 documented in this encounterMount [facility]08-11-2022 History of Present illness Narrative* G Denilson Andrade MD - 04/26/2022 8:02 AM EDT AMBULATORY TELEPHONE VISIT José Miguel Antonio JrTitus has consented to this telephone encounter. Persons Present: patient Chief Complaint/Reason: Prostate adenocarcinoma, initial PSA 8, biopsy Sterling score 3 + 4 = 7 (grade [...] PSA 08/2021 36.2. and repeat biopsy showing Sterling 7 (3+4) adenocarcinoma. Overall doing well without evidence of recurrence. PSA remains undetectable. Has been off Lupron now, last dose approximately 9 months ago. Recommend continued PSA surveillance. Total Time Spent: 5 minutes Yung Andrade MD documented in this encounterMount [facility]04-20-2022 History of Present illness Narrative* Yung Andrade MD - 01/03/2022 12:00 AM EDT [facility] Radiation Oncology Department RADIATION ONCOLOGY - COMPLETION [...] / WST :25 PM documented in this encounterMount [facility]el [facility]04-04-2022 History of Present illness Narrative* Yung Andrade MD - 12/18/2021 12:00 AM EDT [facility] Radiation Oncology Department RADIATION ONCOLOGY - COMPLETION NOTE PATIENT: JOSÉ MIGUEL ANTONIO: 1940 DATES OF TREATMENT: 10/23/2021 to 12/19/2019 DIAGNOSIS: Prostate adenocarcinoma, initial PSA 8, 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 and repeat biopsy showing Sterling 7 (3+4) adenocarcinoma. AREA TREATED: Pelvis Prostate [...] / WST 21:22 PM documented in this encounterMount [facility]el [facility] System03-28-2022 History of Present illness Narrative* Yung Andrade [...] discussed. Yung Andrade MD documented in this encounterMount Carmel [facility] System12-29-2021 History of Present illness Narrative* Devika Fishman [...] 13, 2021 2:54 PM documented in this encounterMount Carmel Health System12-29-2021 Nurse Note* Allyn Tong RN - 09/13/2021 [...] DATE: September 13, 2021 TIME: 2:57 PM [facility] Note* Allyn Tong RN - 09/13/2021 [...] 2021 TIME: 2:57 PM documented in this encounterMount Carmel Health System01-24-2018 History of Past illness Narrative* Problem Noted [...] 56, Troponin T .37 on admission to [facility] Wide-complex tachycardia 04/28/2012 Overview: Presented to OSH 04/28/12 in setting acute [place] with wide complex tachycardia SVT versus VT. Given adenosine x2 without effect, diltiazem bolus and infusion with no effect. Spontaneous conversion to NSR. Had short run of wide complex tachycardia upon arrival to [facility] from [facility]. Pre-op evaluation 04/28/2012 05/01/2012 Overview: Preoperative evaluation for CABG. Not ReDo -Carotids: Ordered -Vein Mapping: Ordered -Bedside PFTs: Ordered -Formal TTE: Ordered -CXR: Completed documented as of this encounter (statuses as of 10/30/2023) [facility] of Past illness Narrative* Problem Noted [...] 56, Troponin T .37 on admission to [facility] Wide-complex tachycardia 04/28/2012 Overview: Presented to OSH 04/28/12 in setting acute NE with wide complex tachycardia SVT versus VT. Given adenosine x2 without effect, diltiazem bolus and infusion with no effect. Spontaneous conversion to NSR. Had short run of wide complex tachycardia upon arrival to [facility] from [facility]. Pre-op evaluation 04/28/2012 05/01/2012 Overview: Preoperative evaluation for CABG. Not ReDo -Carotids: Ordered -Vein Mapping: Ordered -Bedside PFTs: Ordered -Formal TTE: Ordered -CXR: Completed documented as of this encounter (statuses as of 11/27/2023) [facility] of Past illness Narrative* Problem Noted [...] 56, Troponin T .37 on admission to [facility] Wide-complex tachycardia 04/28/2012 Overview: Presented to OSH 04/28/12 in setting acute NE with wide complex tachycardia SVT versus VT. Given adenosine x2 without effect, diltiazem bolus and infusion with no effect. Spontaneous conversion to NSR. Had short run of wide complex tachycardia upon arrival to [facility] from [facility]. Pre-op evaluation 04/28/2012 05/01/2012 Overview: Preoperative evaluation for CABG. Not ReDo -Carotids: Ordered -Vein Mapping: Ordered -Bedside PFTs: Ordered -Formal TTE: Ordered -CXR: Completed documented as of this encounter (statuses as of 11/27/2023) [facility] illness Narrative* Problem Noted [...] 56, Troponin T .37 on admission to [facility] Wide-complex tachycardia 04/28/2012 Overview: Presented to OSH 04/28/12 in setting acute NE with wide complex tachycardia SVT versus VT. Given adenosine x2 without effect, diltiazem bolus and infusion with no effect. Spontaneous conversion to NSR. Had short run of wide complex tachycardia upon arrival to [facility] from [facility]. Pre-op evaluation 04/28/2012 05/01/2012 Overview: Preoperative evaluation for CABG. Not ReDo -Carotids: Ordered -Vein Mapping: Ordered -Bedside PFTs: Ordered -Formal TTE: Ordered -CXR: Completed documented as of this encounter (statuses as of 12/04/2023) [facility] of Past illness Narrative* Problem Noted [...] 56, Troponin T .37 on admission to [facility] Wide-complex tachycardia 04/28/2012 Overview: Presented to OSH 04/28/12 in setting acute NE with wide complex tachycardia SVT versus VT. Given adenosine x2 without effect, diltiazem bolus and infusion with no effect. Spontaneous conversion to NSR. Had short run of wide complex tachycardia upon arrival to [facility] from [facility]. Pre-op evaluation 04/28/2012 05/01/2012 Overview: Preoperative evaluation for CABG. Not ReDo -Carotids: Ordered -Vein Mapping: Ordered -Bedside PFTs: Ordered -Formal TTE: Ordered -CXR: Completed documented as of this encounter (statuses as of 12/20/2023) [facility] illness Narrative* Problem Noted [...] 56, Troponin T .37 on admission to [facility] Wide-complex tachycardia 04/28/2012 Overview: Presented to OSH 04/28/12 in setting acute NE with wide complex tachycardia SVT versus VT. Given adenosine x2 without effect, diltiazem bolus and infusion with no effect. Spontaneous conversion to NSR. Had short run of wide complex tachycardia upon arrival to [facility] from [facility]. Pre-op evaluation 04/28/2012 05/01/2012 Overview: Preoperative evaluation for CABG. Not ReDo -Carotids: Ordered -Vein Mapping: Ordered -Bedside PFTs: Ordered -Formal TTE: Ordered -CXR: Completed documented as of this encounter (statuses as of 12/23/2023) [facility] illness Narrative* Problem Noted [...] 56, Troponin T .37 on admission to [facility] Wide-complex tachycardia 04/28/2012 Overview: Presented to OSH 04/28/12 in setting acute NE with wide complex tachycardia SVT versus VT. Given adenosine x2 without effect, diltiazem bolus and infusion with no effect. Spontaneous conversion to NSR. Had short run of wide complex tachycardia upon arrival to [facility] from [facility]. Pre-op evaluation 04/28/2012 05/01/2012 Overview: Preoperative evaluation for CABG. Not ReDo -Carotids: Ordered -Vein Mapping: Ordered -Bedside PFTs: Ordered -Formal TTE: Ordered -CXR: Completed documented as of this encounter (statuses as of 12/24/2023) [facility] illness Narrative* Problem Noted [...] 56, Troponin T .37 on admission to [facility] Wide-complex tachycardia 04/28/2012 Overview: Presented to OSH 04/28/12 in setting acute NE with wide complex tachycardia SVT versus VT. Given adenosine x2 without effect, diltiazem bolus and infusion with no effect. Spontaneous conversion to NSR. Had short run of wide complex tachycardia upon arrival to [facility] from [facility]. Pre-op evaluation 04/28/2012 05/01/2012 Overview: Preoperative evaluation for CABG. Not ReDo -Carotids: Ordered -Vein Mapping: Ordered -Bedside PFTs: Ordered -Formal TTE: Ordered -CXR: Completed documented as of this encounter (statuses as of 12/27/2023) [facility] Narrative* Problem Noted [...] 56, Troponin T .37 on admission to [facility] Wide-complex tachycardia 04/28/2012 Overview: Presented to OSH 04/28/12 in setting acute NE with wide complex tachycardia SVT versus VT. Given adenosine x2 without effect, diltiazem bolus and infusion with no effect. Spontaneous conversion to NSR. Had short run of wide complex tachycardia upon arrival to [facility] from [facility]. Pre-op evaluation 04/28/2012 05/01/2012 Overview: Preoperative evaluation for CABG. Not ReDo -Carotids: Ordered -Vein Mapping: Ordered -Bedside PFTs: Ordered -Formal TTE: Ordered -CXR: Completed documented as of this encounter (statuses as of 12/27/2023) [facility] Narrative* Problem Noted [...] 56, Troponin T .37 on admission to [facility] Wide-complex tachycardia 04/28/2012 Overview: Presented to OSH 04/28/12 in setting acute NE with wide complex tachycardia SVT versus VT. Given adenosine x2 without effect, diltiazem bolus and infusion with no effect. Spontaneous conversion to NSR. Had short run of wide complex tachycardia [facility] Pre-op evaluation 04/28/2012 05/01/2012 Overview: Preoperative evaluation for CABG. Not ReDo -Carotids: Ordered -Vein Mapping: Ordered -Bedside PFTs: Ordered -Formal TTE: Ordered -CXR: Completed documented as of this encounter (statuses as of 12/31/2023) [facility] Narrative* Problem Noted [...] 56, Troponin T .37 on admission to [facility] Wide-complex tachycardia 04/28/2012 Overview: Presented to OSH 04/28/12 in setting acute NE with wide complex tachycardia SVT versus VT. Given adenosine x2 without effect, diltiazem bolus and infusion with no effect. Spontaneous conversion to NSR. Had short run of wide complex tachycardia upon arrival [facility] Pre-op evaluation 04/28/2012 05/01/2012 Overview: Preoperative evaluation for CABG. Not ReDo -Carotids: Ordered -Vein Mapping: Ordered -Bedside PFTs: Ordered -Formal TTE: Ordered -CXR: Completed documented as of this encounter (statuses as of 01/02/2024) [facility] Narrative* Problem Noted [...] 56, Troponin T .37 on admission to [facility] Wide-complex tachycardia 04/28/2012 Overview: Presented to OSH 04/28/12 in setting acute NE with wide complex tachycardia SVT versus VT. Given adenosine x2 without effect, diltiazem bolus and infusion with no effect. Spontaneous conversion to NSR. Had short run of wide complex tachycardia upon arrival to [facility]. Pre-op evaluation 04/28/2012 05/01/2012 Overview: Preoperative evaluation for CABG. Not ReDo -Carotids: Ordered -Vein Mapping: Ordered -Bedside PFTs: Ordered -Formal TTE: Ordered -CXR: Completed documented as of this encounter (statuses as of 01/03/2024) [facility] Narrative* Problem Noted [...] 56, Troponin T .37 on admission to [facility] Wide-complex tachycardia 04/28/2012 012 Overview: Presented to OSH 04/28/12 in setting acute NE with wide complex tachycardia SVT versus VT. Given adenosine x2 without effect, diltiazem bolus and infusion with no effect. Spontaneous conversion to NSR. Had short run of wide complex tachycardia upon arrival to [facility] from [facility]. Pre-op evaluation 04/28/2012 05/01/2012 Overview: Preoperative evaluation for CABG. Not ReDo -Carotids: Ordered -Vein Mapping: Ordered -Bedside PFTs: Ordered -Formal TTE: Ordered -CXR: Completed documented as of this encounter (statuses as of 12/18/2021) [facility] Narrative* Problem Noted [...] 56, Troponin T .37 on admission to [facility] Wide-complex tachycardia 04/28/2012 012 Overview: Presented to OSH 04/28/12 in setting acute NE with wide complex tachycardia SVT versus VT. Given adenosine x2 without effect, diltiazem bolus and infusion with no effect. Spontaneous conversion to NSR. Had short run of wide complex tachycardia upon arrival to [facility] from [facility]. Pre-op evaluation 04/28/2012 05/01/2012 Overview: Preoperative evaluation for CABG. Not ReDo -Carotids: Ordered -Vein Mapping: Ordered -Bedside PFTs: Ordered -Formal TTE: Ordered -CXR: Completed documented as of this encounter (statuses as of 12/21/2021) [facility] Narrative* Problem Noted [...] 56, Troponin T .37 on admission to [facility] Wide-complex tachycardia 04/28/2012 012 Overview: Presented to OSH 04/28/12 in setting acute NE with wide complex tachycardia SVT versus VT. Given adenosine x2 without effect, diltiazem bolus and infusion with no effect. Spontaneous conversion to NSR. Had short run of wide complex tachycardia upon arrival to [facility] from [facility]. Pre-op evaluation 04/28/2012 05/01/2012 Overview: Preoperative evaluation for CABG. Not ReDo -Carotids: Ordered -Vein Mapping: Ordered -Bedside PFTs: Ordered -Formal TTE: Ordered -CXR: Completed documented as of this encounter (statuses as of 01/15/2022) [facility] Narrative* Problem Noted [...] 56, Troponin T .37 on admission to [facility] Wide-complex tachycardia 04/28/2012 012 Overview: Presented to OSH 04/28/12 in setting acute NE with wide complex tachycardia SVT versus VT. Given adenosine x2 without effect, diltiazem bolus and infusion with no effect. Spontaneous conversion to NSR. Had short run of wide complex tachycardia upon arrival to [facility] Pre-op evaluation 04/28/2012 05/01/2012 Overview: Preoperative evaluation for CABG. Not ReDo -Carotids: Ordered -Vein Mapping: Ordered -Bedside PFTs: Ordered -Formal TTE: Ordered -CXR: Completed documented as of this encounter (statuses as of 01/18/2022) [facility] Narrative* Problem Noted [...] 56, Troponin T .37 on admission to [facility] Wide-complex tachycardia 04/28/2012 012 Overview: Presented to OSH 04/28/12 in setting acute NE with wide complex tachycardia SVT versus VT. Given adenosine x2 without effect, diltiazem bolus and infusion with no effect. Spontaneous conversion to NSR. Had short run of wide complex tachycardia upon arrival to [facility] from [facility]. Pre-op evaluation 04/28/2012 05/01/2012 Overview: Preoperative evaluation for CABG. Not ReDo -Carotids: Ordered -Vein Mapping: Ordered -Bedside PFTs: Ordered -Formal TTE: Ordered -CXR: Completed documented as of this encounter (statuses as of 02/06/2022) [facility] Narrative* Problem Noted [...] 56, Troponin T .37 on admission to [facility] Wide-complex tachycardia 04/28/2012 012 Overview: Presented to OSH 04/28/12 in setting acute NE with wide complex tachycardia SVT versus VT. Given adenosine x2 without effect, diltiazem bolus and infusion with no effect. Spontaneous conversion to NSR. Had short run of wide complex tachycardia upon arrival to [facility] from [facility]. Pre-op evaluation 04/28/2012 05/01/2012 Overview: Preoperative evaluation for CABG. Not ReDo -Carotids: Ordered -Vein Mapping: Ordered -Bedside PFTs: Ordered -Formal TTE: Ordered -CXR: Completed documented as of this encounter (statuses as of 04/26/2022) [facility] Narrative* Problem Noted [...] 56, Troponin T .37 on admission to [facility] Wide-complex tachycardia 04/28/2012 012 Overview: Presented to OSH 04/28/12 in setting acute NE with wide complex tachycardia SVT versus VT. Given adenosine x2 without effect, diltiazem bolus and infusion with no effect. Spontaneous conversion to NSR. Had short run of wide complex tachycardia upon arrival to [facility] from [facility]. Pre-op evaluation 04/28/2012 05/01/2012 Overview: Preoperative evaluation for CABG. Not ReDo -Carotids: Ordered -Vein Mapping: Ordered -Bedside PFTs: Ordered -Formal TTE: Ordered -CXR: Completed documented as of this encounter (statuses as of 05/08/2022) [facility] Narrative* Problem Noted [...] 56, Troponin T .37 on admission to [facility] Wide-complex tachycardia 04/28/2012 012 Overview: Presented to OSH 04/28/12 in setting acute NE with wide complex tachycardia SVT versus VT. Given adenosine x2 without effect, diltiazem bolus and infusion with no effect. Spontaneous conversion to NSR. Had short run of wide complex tachycardia upon arrival to [facility] from [facility]. Pre-op evaluation 04/28/2012 05/01/2012 Overview: Preoperative evaluation for CABG. Not ReDo -Carotids: Ordered -Vein Mapping: Ordered -Bedside PFTs: Ordered -Formal TTE: Ordered -CXR: Completed documented as of this encounter (statuses as of 06/06/2022) [facility] Narrative* Problem Noted [...] 56, Troponin T .37 on admission to [facility] Wide-complex tachycardia 04/28/2012 012 Overview: Presented to OSH 04/28/12 in setting acute NE with wide complex tachycardia SVT versus VT. Given adenosine x2 without effect, diltiazem bolus and infusion with no effect. Spontaneous conversion to NSR. Had short run of wide complex tachycardia upon arrival to [facility] from [facility]. Pre-op evaluation 04/28/2012 05/01/2012 Overview: Preoperative evaluation for CABG. Not ReDo -Carotids: Ordered -Vein Mapping: Ordered -Bedside PFTs: Ordered -Formal TTE: Ordered -CXR: Completed documented as of this encounter (statuses as of 06/06/2022) [facility] Narrative* Problem Noted [...] 56, Troponin T .37 on admission to [facility] Wide-complex tachycardia 04/28/2012 012 Overview: Presented to OSH 04/28/12 in setting acute NE with wide complex tachycardia SVT versus VT. Given adenosine x2 without effect, diltiazem bolus and infusion with no effect. Spontaneous conversion to NSR. Had short run of wide complex tachycardia upon arrival to [facility] from [facility]. Pre-op evaluation 04/28/2012 05/01/2012 Overview: Preoperative evaluation for CABG. Not ReDo -Carotids: Ordered -Vein Mapping: Ordered -Bedside PFTs: Ordered -Formal TTE: Ordered -CXR: Completed documented as of this encounter (statuses as of 07/31/2022) [facility] Narrative* Problem Noted [...] 56, Troponin T .37 on admission to [facility] Wide-complex tachycardia 04/28/2012 012 Overview: Presented to OSH 04/28/12 in setting acute NE with wide complex tachycardia SVT versus VT. Given adenosine x2 without effect, diltiazem bolus and infusion with no effect. Spontaneous conversion to NSR. Had short run of wide complex tachycardia upon arrival to [facility] from [facility]. Pre-op evaluation 04/28/2012 05/01/2012 Overview: Preoperative evaluation for CABG. Not ReDo -Carotids: Ordered -Vein Mapping: Ordered -Bedside PFTs: Ordered -Formal TTE: Ordered -CXR: Completed documented as of this encounter (statuses as of 08/01/2022) [facility] Narrative* Problem Noted [...] 56, Troponin T .37 on admission to [facility] Wide-complex tachycardia 04/28/2012 012 Overview: Presented to OSH 04/28/12 in setting acute NE with wide complex tachycardia SVT versus VT. Given adenosine x2 without effect, diltiazem bolus and infusion with no effect. Spontaneous conversion to NSR. Had short run of wide complex tachycardia upon arrival to [facility] from [facility]. Pre-op evaluation 04/28/2012 05/01/2012 Overview: Preoperative evaluation for CABG. Not ReDo -Carotids: Ordered -Vein Mapping: Ordered -Bedside PFTs: Ordered -Formal TTE: Ordered -CXR: Completed documented as of this encounter (statuses as of 08/03/2022) [facility] Narrative* Problem Noted [...] 56, Troponin T .37 on admission to [facility] Wide-complex tachycardia 04/28/2012 012 Overview: Presented to OSH 04/28/12 in setting acute NE with wide complex tachycardia SVT versus VT. Given adenosine x2 without effect, diltiazem bolus and infusion with no effect. Spontaneous conversion to NSR. Had short run of wide complex tachycardia upon arrival to [facility] from [facility]. Pre-op evaluation 04/28/2012 05/01/2012 Overview: Preoperative evaluation for CABG. Not ReDo -Carotids: Ordered -Vein Mapping: Ordered -Bedside PFTs: Ordered -Formal TTE: Ordered -CXR: Completed documented as of this encounter (statuses as of 08/07/2022) [facility] Narrative* Problem Noted [...] 56, Troponin T .37 on admission to [facility] Wide-complex tachycardia 04/28/2012 012 Overview: Presented to OSH 04/28/12 in setting acute NE with wide complex tachycardia SVT versus VT. Given adenosine x2 without effect, diltiazem bolus and infusion with no effect. Spontaneous conversion to NSR. Had short run of wide complex tachycardia upon arrival to [facility] from [facility]. Pre-op evaluation 04/28/2012 05/01/2012 Overview: Preoperative evaluation for CABG. Not ReDo -Carotids: Ordered -Vein Mapping: Ordered -Bedside PFTs: Ordered -Formal TTE: Ordered -CXR: Completed documented as of this encounter (statuses as of 08/17/2022) [facility] Narrative* Problem Noted [...] 56, Troponin T .37 on admission to [facility] Wide-complex tachycardia 04/28/2012 012 Overview: Presented to OSH 04/28/12 in setting acute NE with wide complex tachycardia SVT versus VT. Given adenosine x2 without effect, diltiazem bolus and infusion with no effect. Spontaneous conversion to NSR. Had short run of wide complex tachycardia upon arrival to [facility] from [facility]. Pre-op evaluation 04/28/2012 05/01/2012 Overview: Preoperative evaluation for CABG. Not ReDo -Carotids: Ordered -Vein Mapping: Ordered -Bedside PFTs: Ordered -Formal TTE: Ordered -CXR: Completed documented as of this encounter (statuses as of 09/03/2022) [facility] Narrative* Problem Noted [...] 56, Troponin T .37 on admission to [facility] Wide-complex tachycardia 04/28/2012 012 Overview: Presented to OSH 04/28/12 in setting acute NE with wide complex tachycardia SVT versus VT. Given adenosine x2 without effect, diltiazem bolus and infusion with no effect. Spontaneous conversion to NSR. Had short run of wide complex tachycardia upon arrival to [facility] from [facility]. Pre-op evaluation 04/28/2012 05/01/2012 Overview: Preoperative evaluation for CABG. Not ReDo -Carotids: Ordered -Vein Mapping: Ordered -Bedside PFTs: Ordered -Formal TTE: Ordered -CXR: Completed documented as of this encounter (statuses as of 09/07/2022) [facility] Narrative* Problem Noted [...] 56, Troponin T .37 on admission to [facility] Wide-complex tachycardia 04/28/2012 012 Overview: Presented to OSH 04/28/12 in setting acute NE with wide complex tachycardia SVT versus VT. Given adenosine x2 without effect, diltiazem bolus and infusion with no effect. Spontaneous conversion to NSR. Had short run of wide complex tachycardia upon arrival to [facility] from [facility]. Pre-op evaluation 04/28/2012 05/01/2012 Overview: Preoperative evaluation for CABG. Not ReDo -Carotids: Ordered -Vein Mapping: Ordered -Bedside PFTs: Ordered -Formal TTE: Ordered -CXR: Completed documented as of this encounter (statuses as of 10/08/2022) [facility] History of Past illness Narrative* Problem Noted [...] 56, Troponin T .37 on admission to [facility] Wide-complex tachycardia 04/28/2012 012 Overview: Presented to OSH 04/28/12 in setting acute NE with wide complex tachycardia SVT versus VT. Given adenosine x2 without effect, diltiazem bolus and infusion with no effect. Spontaneous conversion to NSR. Had short run of wide complex tachycardia upon arrival to [facility] from CICU. Pre-op evaluation 04/28/2012 05/01/2012 Overview: Preoperative evaluation for CABG. Not ReDo -Carotids: Ordered -Vein Mapping: Ordered -Bedside PFTs: Ordered -Formal TTE: Ordered -CXR: Completed documented as of this encounter (statuses as of 10/26/2022) [facility] History of Past illness Narrative* Problem Noted [...] 56, Troponin T .37 on admission to [facility] Wide-complex tachycardia 04/28/2012 012 Overview: Presented to OSH 04/28/12 in setting acute NE with wide complex tachycardia SVT versus VT. Given adenosine x2 without effect, diltiazem bolus and infusion with no effect. Spontaneous conversion to NSR. Had short run of wide complex tachycardia upon arrival to [facility] from CICU. Pre-op evaluation 04/28/2012 05/01/2012 Overview: Preoperative evaluation for CABG. Not ReDo -Carotids: Ordered -Vein Mapping: Ordered -Bedside PFTs: Ordered -Formal TTE: Ordered -CXR: Completed documented as of this encounter (statuses as of 10/26/2022) [facility] History of Past illness Narrative* Problem Noted [...] 56, Troponin T .37 on admission to [facility] Wide-complex tachycardia 04/28/2012 012 Overview: Presented to OSH 04/28/12 in setting acute NE with wide complex tachycardia SVT versus VT. Given adenosine x2 without effect, diltiazem bolus and infusion with no effect. Spontaneous conversion to NSR. Had short run of wide complex tachycardia upon arrival to [facility] from CICU. Pre-op evaluation 04/28/2012 05/01/2012 Overview: Preoperative evaluation for CABG. Not ReDo -Carotids: Ordered -Vein Mapping: Ordered -Bedside PFTs: Ordered -Formal TTE: Ordered -CXR: Completed documented as of this encounter (statuses as of 10/31/2022) [facility] History of Past illness Narrative* Problem Noted [...] 56, Troponin T .37 on admission to [facility] Wide-complex tachycardia 04/28/2012 012 Overview: Presented to OSH 04/28/12 in setting acute NE with wide complex tachycardia SVT versus VT. Given adenosine x2 without effect, diltiazem bolus and infusion with no effect. Spontaneous conversion to NSR. Had short run of wide complex tachycardia upon arrival to [facility] from C[facility]. Pre-op evaluation 04/28/2012 05/01/2012 Overview: Preoperative evaluation for CABG. Not ReDo -Carotids: Ordered -Vein Mapping: Ordered -Bedside PFTs: Ordered -Formal TTE: Ordered -CXR: Completed documented as of this encounter (statuses as of 11/02/2022) [facility] History of Past illness Narrative* Problem Noted [...] 56, Troponin T .37 on admission to [facility] Wide-complex tachycardia 04/28/2012 012 Overview: Presented to OSH 04/28/12 in setting acute NE with wide complex tachycardia SVT versus VT. Given adenosine x2 without effect, diltiazem bolus and infusion with no effect. Spontaneous conversion to NSR. Had short run of wide complex tachycardia upon arrival to [facility] from [facility]. Pre-op evaluation 04/28/2012 05/01/2012 Overview: Preoperative evaluation for CABG. Not ReDo -Carotids: Ordered -Vein Mapping: Ordered -Bedside PFTs: Ordered -Formal TTE: Ordered -CXR: Completed documented as of this encounter (statuses as of 11/07/2022) [facility] History of Past illness Narrative* Problem Noted [...] 56, Troponin T .37 on admission to [facility] Wide-complex tachycardia 04/28/2012 012 Overview: Presented to OSH 04/28/12 in setting acute NE with wide complex tachycardia SVT versus VT. Given adenosine x2 without effect, diltiazem bolus and infusion with no effect. Spontaneous conversion to NSR. Had short run of wide complex tachycardia upon arrival to [facility] from [facility]. Pre-op evaluation 04/28/2012 05/01/2012 Overview: Preoperative evaluation for CABG. Not ReDo -Carotids: Ordered -Vein Mapping: Ordered -Bedside PFTs: Ordered -Formal TTE: Ordered -CXR: Completed documented as of this encounter (statuses as of 11/29/2022) [facility] History of Past illness Narrative* Problem Noted [...] 56, Troponin T .37 on admission to [facility] Wide-complex tachycardia 04/28/2012 012 Overview: Presented to OSH 04/28/12 in setting acute NE with wide complex tachycardia SVT versus VT. Given adenosine x2 without effect, diltiazem bolus and infusion with no effect. Spontaneous conversion to NSR. Had short run of wide complex tachycardia upon arrival to [facility] from [facility]. Pre-op evaluation 04/28/2012 05/01/2012 Overview: Preoperative evaluation for CABG. Not ReDo -Carotids: Ordered -Vein Mapping: Ordered -Bedside PFTs: Ordered -Formal TTE: Ordered -CXR: Completed documented as of this encounter (statuses as of 11/30/2022) [facility] History of Past illness Narrative* Problem Noted [...] 56, Troponin T .37 on admission to [facility] Wide-complex tachycardia 04/28/201205/05/ 012 Overview: Presented to OSH 04/28/12 in setting acute NE with wide complex tachycardia SVT versus VT. Given adenosine x2 without effect, diltiazem bolus and infusion with no effect. Spontaneous conversion to NSR. Had short run of wide complex tachycardia upon arrival to [facility] from [facility]. Pre-op evaluation 04/28/2012 05/01/2012 Overview: Preoperative evaluation for CABG. Not ReDo -Carotids: Ordered -Vein Mapping: Ordered -Bedside PFTs: Ordered -Formal TTE: Ordered -CXR: Completed documented as of this encounter (statuses as of 12/03/2022) [facility] History of Past illness Narrative* Problem Noted [...] 56, Troponin T .37 on admission to [facility] Wide-complex tachycardia 04/28/2012 012 Overview: Presented to OSH 04/28/12 in setting acute NE with wide complex tachycardia SVT versus VT. Given adenosine x2 without effect, diltiazem bolus and infusion with no effect. Spontaneous conversion to NSR. Had short run of wide complex tachycardia [facility] Pre-op evaluation 04/28/2012 05/01/2012 Overview: Preoperative evaluation for CABG. Not ReDo -Carotids: Ordered -Vein Mapping: Ordered -Bedside PFTs: Ordered -Formal TTE: Ordered -CXR: Completed documented as of this encounter (statuses as of 02/21/2023) [facility] History of Past illness Narrative* Problem Noted [...] 56, Troponin T .37 on admission to [facility] Wide-complex tachycardia 04/28/2012 Overview: Presented to OSH 04/28/12 in setting acute NE with wide complex tachycardia SVT versus VT. Given adenosine x2 without effect, diltiazem bolus and infusion with no effect. Spontaneous conversion to NSR. Had short run of wide complex tachycardia upon arrival to [facility] from [facility]. Pre-op evaluation 04/28/2012 05/01/2012 Overview: Preoperative evaluation for CABG. Not ReDo -Carotids: Ordered -Vein Mapping: Ordered -Bedside PFTs: Ordered -Formal TTE: Ordered -CXR: Completed documented as of this encounter (statuses as of 04/27/2023) [facility] History of Past illness Narrative* Problem Noted [...] 56, Troponin T .37 on admission to [facility] Wide-complex tachycardia 04/28/2012 Overview: Presented to OSH 04/28/12 in setting acute NE with wide complex tachycardia SVT versus VT. Given adenosine x2 without effect, diltiazem bolus and infusion with no effect. Spontaneous conversion to NSR. Had short run of wide complex tachycardia upon arrival to [facility] from [facility]. Pre-op evaluation 04/28/2012 05/01/2012 Overview: Preoperative evaluation for CABG. Not ReDo -Carotids: Ordered -Vein Mapping: Ordered -Bedside PFTs: Ordered -Formal TTE: Ordered -CXR: Completed documented as of this encounter (statuses as of 05/09/2023) [facility] History of Past illness Narrative* Problem Noted [...] 56, Troponin T .37 on admission to [facility] Wide-complex tachycardia 04/28/2012 Overview: Presented to OSH 04/28/12 in setting acute NE with wide complex tachycardia SVT versus VT. Given adenosine x2 without effect, diltiazem bolus and infusion with no effect. Spontaneous conversion to NSR. Had short run of wide complex tachycardia upon arrival [facility] Pre-op evaluation 04/28/2012 05/01/2012 Overview: Preoperative evaluation for CABG. Not ReDo -Carotids: Ordered -Vein Mapping: Ordered -Bedside PFTs: Ordered -Formal TTE: Ordered -CXR: Completed documented as of this encounter (statuses as of 08/23/2023) [facility] History of Past illness Narrative* Problem Noted [...] Presented to OSH 04/28/12 in setting acute NE with wide complex tachycardia SVT versus VT. Given adenosine x2 without effect, diltiazem bolus and infusion with no effect. Spontaneous conversion to NSR. Had short run of wide complex tachycardia upon arrival to [facility]. Pre-op evaluation 04/28/2012 05/01/2012 Overview: Preoperative evaluation for CABG. Not ReDo -Carotids: Ordered -Vein Mapping: Ordered -Bedside PFTs: Ordered -Formal TTE: Ordered -CXR: Completed documented as of this encounter (statuses as of 08/27/2023) [facility] Diagnosis Malignant neoplasm of prostate (HCC)- Primary Malignant neoplasm of prostate [facility] Diagnosis Unspecified hypothyroidism- Primary Hypercholesterolemia Pure hypercholesterolemia Abnormal finding of blood chemistry, unspecified [facility] Diagnosis Malignant neoplasm of prostate (HCC)- Primary Malignant neoplasm of prostate [facility] Diagnosis Chronic systolic heart failure (HCC)- Primary Chronic systolic heart failure [facility] Diagnosis Mitral valve insufficiency, unspecified etiology- Primary Chronic systolic heart failure (HCC) Chronic systolic [facility] Bilateral carotid artery stenosis- Primary Occlusion and stenosis of carotid artery without mention of cerebral infarction [facility] Diagnosis Coronary artery disease involving [place] coronary artery of [place] heart without angina pectoris- Primary Heart [...] stenosis, asymptomatic, bilateral [facility] Diagnosis Chronic systolic heart failure (HCC)- Primary Chronic systolic heart failure Coronary artery disease involving [place] coronary artery of [place] heart without angina pectoris [facility] Diagnosis Malignant neoplasm of prostate (HCC)- Primary Malignant neoplasm of prostate [facility] Diagnosis Chronic systolic heart failure (HCC) Chronic systolic heart failure Coronary artery disease involving [place] coronary artery of [place] heart without angina pectoris [facility] Diagnosis Coronary artery disease involving [place] coronary artery of [place] heart without angina pectoris- Primary Heart failure, acute systolic (HCC) Acute systolic heart failure Preop testing Preoperative examination, unspecified Carotid stenosis, asymptomatic, bilateral Preoperative cardiovascular examination Pre-operative cardiovascular examination [facility] Diagnosis 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 kidney disease, unspecified CKD stage, unspecified whether longterm insulin use (HCC)- Primary PVD (peripheral vascular disease) ([facility]) Peripheral vascular disease, unspecified Atherosclerotic heart disease of [place] coronary artery with other forms of angina pectoris ([facility]) [facility] Diagnosis Chronic 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)- Primary Chronic combined systolic and diastolic heart failure Coronary artery disease involving [place] coronary artery of [place] heart without angina pectoris Essential hypertension Unspecified essential hypertension Hx of CABG Postsurgical aortocoronary bypass status Mixed hyperlipidemia Systolic heart failure, unspecified HF chronicity (HCC) 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 kidney disease, unspecified CKD stage, unspecified whether technician terminal and repeater insulin use (HCC) PVD (peripheral vascular disease) ([facility]) Peripheral vascular disease, unspecified Atherosclerotic heart disease of [place]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) Mitral valve insufficiency, unspecified etiology [facility] Diagnosis Atherosclerosis of [place] coronary artery, unspecified whether angina present, unspecified whether [place] or transplanted heart- Primary [facility] Diagnosis Mitral valve insufficiency, unspecified etiology- Primary HFrEF (heart failure with reduced ejection fraction) (HCC) Heart failure, unspecified SOB (shortness of breath) Shortness of breath Hx of CABG Postsurgical aortocoronary bypass status Coronary artery disease involving [place] coronary artery of [place] heart without angina pectoris Essential hypertension Unspecified essential hypertension [facility] Diagnosis Severe mitral regurgitation- Primary Mitral valve disorders Cardiomyopathy, ischemic Other specified forms of chronic ischemic heart disease S/P CABG (coronary artery bypass graft) Postsurgical aortocoronary bypass status Sore throat Acute pharyngitis Unspecified severe protein-calorie malnutrition (HCC) [facility] IRB [id number] Empower Assessment of the CARILLON Mitral Contour System in Treating Functional Mitral Regurgitation Associated with Heart Failure PI: Hussein- Primary [facility] Diagnosis Study name: EMPOWER Trial IRB# [id number] Primary [facility] Diagnosis Atherosclerotic heart disease of [place]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)- Primary Coronary artery disease involving coronary bypass graft of [place] heart with angina pectoris (HCC) Chronic systolic [...] protein-calorie malnutrition (HCC) [facility] Diagnosis [facility] Study- Primary [facility] Diagnosis EMPOWER Trial IRB# [id number] Screening visit- Primary Examination of participant in clinical trial [facility] Diagnosis Severe mitral regurgitation- Primary Mitral valve disorders Examination of participant in clinical trial SANTILLAN (dyspnea on exertion) Other dyspnea and respiratory abnormality [facility] Diagnosis Mitral valve insufficiency, unspecified etiology- Primary [facility] Mitral valve insufficiency, unspecified etiology- Primary [facility] Diagnosis Acute decompensated heart failure (HCC) Congestive heart failure, unspecified Mitral valve insufficiency, unspecified etiology [facility] Diagnosis Atherosclerotic heart disease of [place]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)- Primary [facility] Diagnosis Dental caries- Primary Unspecified dental caries Pre-operative clearance Preoperative examination, unspecified Non-rheumatic mitral regurgitation Mitral valve disorders Severe mitral regurgitation Mitral valve disorders [facility] Diagnosis Severe mitral regurgitation- Primary Mitral valve disorders Status post implantation of mitral valve leaflet clip [facility] Diagnosis 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 [facility]* Diagnosis Cerebrovascular accident (CVA) due to other mechanism ([facility])- Primary Cataract, nuclear sclerotic senile, bilateral [facility] Diagnosis 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 Carotid stenosis, 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, left Atrial fibrillation, unspecified type ([facility]) Mixed hyperlipidemia Essential hypertension Unspecified essential hypertension [facility] Diagnosis Cardiomyopathy, ischemic- Primary Other specified forms of chronic ischemic heart disease S/P mitral valve clip implantation Stage 3b chronic kidney disease ([facility]) [facility] Diagnosis 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 pectoris- Primary Chronic systolic heart failure (HCC) Chronic systolic heart failure S/P CABG (coronary artery bypass graft) Postsurgical aortocoronary bypass status Non-rheumatic mitral regurgitation Mitral valve disorders Severe mitral regurgitation Mitral valve disorders [facility] Diagnosis History of prostate cancer- Primary Personal history of malignant neoplasm of prostate [facility] Diagnosis Chronic systolic heart failure (HCC)- Primary Chronic systolic heart failure Non-rheumatic mitral regurgitation Mitral valve disorders [facility] Diagnosis S/P AVR (aortic valve replacement) Heart valve replaced by other means [facility] Diagnosis SANTILLAN (dyspnea on exertion)- Primary Other dyspnea and respiratory abnormality Mitral valve insufficiency, unspecified etiology [facility] Diagnosis Frequent PVCs- Primary Other premature beats [facility] Diagnosis PVC (premature ventricular contraction)- Primary Other premature beats [facility] Diagnosis PVC (premature ventricular contraction)- Primary Other premature beats [facility] Diagnosis Carotid stenosis, 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, left- Primary Pacemaker reprogramming/check Fitting and adjustment of cardiac pacemaker [facility] Diagnosis Frequent PVCs Other premature beats Pacemaker reprogramming/check Fitting and adjustment of cardiac pacemaker [facility] Diagnosis Frequent PVCs- Primary Other premature beats Heart failure, acute systolic (HCC) Acute systolic heart failure Atherosclerotic heart disease of [place]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) Carotid stenosis, 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, left 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 pectoris Acute on chronic systolic congestive heart failure (HCC) Acute on chronic systolic heart failure S/P CABG (coronary artery bypass graft) Postsurgical aortocoronary bypass status Paroxysmal atrial fibrillation (HCC) Atrial fibrillation Pacemaker reprogramming/check Fitting and adjustment of cardiac pacemaker [facility] Diagnosis Pacemaker reprogramming/check Fitting and adjustment of cardiac pacemaker Pacemaker reprogramming/check Fitting and adjustment of cardiac pacemaker [facility] Diagnosis Amaurosis fugax- Primary Transient arterial [...] of cardiac pacemaker [facility] Diagnosis Heart failure, acute systolic (HCC)- Primary Acute systolic heart failure Acute on chronic systolic congestive heart failure (HCC) Acute on chronic systolic heart failure Carotid stenosis, 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, left Pacemaker reprogramming/check Fitting and adjustment of cardiac pacemaker [facility] Diagnosis Chronic systolic heart failure (HCC)- Primary Chronic systolic heart failure Pacemaker reprogramming/check Fitting and adjustment of cardiac pacemaker [facility] SystemInstructionsNot on filedocumented in this encounterPro[facility] SystemInstructionsNot on filedocumented in this encounterProOhio[facility] SystemInstructionsNot on filedocumented in this encounterProOhiohealth [facility] System InstructionsNot on filedocumented in this encounterWilson [facility] SystemReason for referral (narrative)* Outpatient Procedure (Routine) - Authorized Specialty Diagnoses / Procedures Referred By Contthee t Referred To [facility] Diagnoses Chronic systolic heart failure (HCC) Procedures ECHO ECHO TTHRC R-T 2D W/WOM-MODE COMPL SPEC&COLR D Zahra Pierre MD [address] [place] [address] [address] Referral ID Status Reason Start Date Expiration Date Visits Requested Visits Authorized [id number] Authorized Auto-Generat ed Referral 06/06/2022 06/06/2023 1 1 * Outpatient Procedure (Routine) - Authorized Specialty Diagnoses / Procedures Referred By Contac t Referred To Contact [facility] Diagnoses Chronic systolic heart failure (HCC) Procedures ECG COMPLETE ECG ROUTINE ECG W/LEAST 12 LDS W/I&R Zahra Pierre MD [address] [place] [address] [address] Referral ID Status Reason Start Date Expiration Date Visits Requested Visits Authorized [id number] Authorized Auto-Generat ed Referral 06/06/2022 06/06/2023 1 1 [facility] [place] for referral (narrative)* Outpatient Procedure (Routine) - Authorized Specialty Diagnoses / Procedures [facility] To Contact [facility] Diagnoses Bilateral carotid artery stenosis Procedures US CAROTID ARTERIES [facility] DUPLEX SCAN EXTRACRANIAL ART COMPL BI STUDY John Jefferson MD [address] [place] [address] [place] [address] Referral ID Status Reason Start Date Expiration Date Visits Requested Visits Authorized [id number] Authorized Auto-Generat ed Referral 2 08/03/2023 1 1 [facility] [place] for referral (narrative)* Diagnostic Procedure Only (Routine) - Pending Review Specialty Diagnoses / Procedures [facility] To Contact MOLECULAR & FUNCTIONAL IMAGING Diagnoses Chronic systolic heart failure (HCC) Coronary artery disease involving [place] coronary artery of [place] heart without angina pectoris Procedures NM PET/CT CARDIAC VIABILITY MYOCRD IMG PET PRFUJ W/METAB 2RTRACER CNCRNT CT Zahra Pierre MD [address] [place] [address] Molecular & Functional Imaging [address] [place] [address] Referral ID Status Reason Start Date Expiration Date Visits Requested Visits Authorized [id number] Pending Review Auto-Generat ed Referral 2 10/06/2023 1 1 * Diagnostic Procedure Only (Routine) - Pending Review Specialty Diagnoses / Procedures Referred By Jordon rao Referred To Contact MOLECULAR & FUNCTIONAL IMAGING Diagnoses Chronic systolic heart failure (HCC) Coronary artery disease involving [place] coronary artery of [place] heart without angina pectoris Procedures NM PET/CT CARDIAC PERF REST/STRESS MYOCRD IMG PET PRFUJ INDUSTRIAL ENGINEERING STD RST & STRS [facility] [address] [place] [address] Molecular & Functional Imaging [address] [place] [address] Referral ID Status Reason Start Date Expiration Date Visits Requested Visits Authorized [id number] Pending Review Auto-Generat ed Referral 2 10/06/2023 1 1 [facility] [place] for referral (narrative)* Diagnostic Procedure Only (Routine) - Closed Specialty Diagnoses / Procedures Referred By Jordon rao Referred To Contact MOLECULAR & FUNCTIONAL IMAGING Diagnoses Chronic systolic heart failure (HCC) Coronary artery disease involving [place] coronary artery of [place] heart without angina pectoris Procedures NM PET/CT CARDIAC VIABILITY MYOCRD IMG PET PRFUJ W/METAB 2RTRACER [facility] [address] [place] [address] Molecular & Functional Imaging [address] [place] [address] Referral ID Status Reason Start Date Expiration Date V isits Requested Visits Authorized [id number] Closed Auto-Generate d Referral 09/06/2022 10/06/2023 1 1 * Diagnostic Procedure Only (Routine) - Closed Specialty Diagnoses / Procedures [facility] Ref[facility] To Contact MOLECULAR & FUNCTIONAL IMAGING Diagnoses Chronic systolic heart failure (HCC) Coronary artery disease involving [place] coronary artery of [place] heart without angina pectoris Procedures NM PET/CT CARDIAC PERF REST/STRESS MYOCRD IMG PET PRFUJ INDUSTRIAL ENGINEERING STD RST & STRS CNCRNT CT Zahra Pierre MD [address] [place] [id number] Molecular & Functional Imaging [address] [place] [address] Referral ID Status Reason Start Date Expiration Date V isits Requested Visits Authorized [id number] Closed Auto-Generate d Referral 09/06/2022 10/06/2023 1 1 [facility] [place] for referral (narrative)* Outpatient Procedure (Routine) - Authorized Specialty Diagnoses / Procedures [facility] To [facility] Diagnoses Chronic 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) Procedures ECHO ECHO TTHRC R-T 2D W/WOM-MODE COMPL SPEC&COLR D Virgil Carrillo MD [address] [place] [id number] [place] [address] Referral ID Status Reason Start Date Expiration Date Visits Requested Visits Authorized [id number] Authorized Auto-Generat ed Referral 10/30/2023 10/29/2024 1 1 * Outpatient Procedure (Routine) - Authorized Specialty Diagnoses / Procedures [facility] Diagnoses Chronic 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) Procedures ECG COMPLETE ECG ROUTINE ECG W/LEAST 12 LDS W/I&R Virgil Carrillo MD [address] [place] [id number] [facility] [place] [address] [place] [address] Referral ID Status Reason Start Date Expiration Date Visits Requested Visits Authorized [id number] Authorized Auto-Generat ed Referral 10/30/2023 10/29/2024 1 1 * Transition of Care (Routine) - Ref Not Required Specialty Diagnoses / Procedures Referred By Contac t Referred To Contact Procedures CARDIOVASCULAR MEDICINE OP FOLLOW UP APPT ORDER Virgil Carrillo MD [address] [place] [address] Referral ID Status Reason Start Date Expiration Date Visits Requested Visits Authorized [id number] Ref Not Required PCP Requested Referral 01/28/2024 10/29/2024 1 1 [facility] [place] for referral (narrative)* Outpatient Procedure (Routine) - Pending Review Specialty Diagnoses / Procedures Referred By Contac t Referred To Contact [facility] [place] Diagnoses Atherosclerosis of [place] coronary artery, unspecified whether angina present, unspecified whether [place] or transplanted heart Procedures ECHO ECHO TTHRC R-T 2D W/WOM-MODE COMPL SPEC&COLR D Virgil Carrillo MD [address] [place] [address] [facility] [place] [address] [place] [address] Referral ID Status Reason Start Date Expiration Date Visits Requested Visits Authorized [id number] Pending Review Auto-Generat ed Referral 11/26/2023 11/25/2024 1 1 * Outpatient Procedure (Routine) - Authorized Specialty Diagnoses / Procedures Referred By Contac t Referred To Contact [facility] [place] Diagnoses Atherosclerosis of [place] coronary artery, unspecified whether angina present, unspecified whether [place] or transplanted heart Procedures ECG COMPLETE ECG ROUTINE ECG W/LEAST 12 LDS W/I&R Virgil Carrillo MD [address] [place] [address] [facility] [address] [address] Referral ID Status Reason Start Date Expiration Date Visits Requested Visits Authorized [id number] Authorized Auto-Generat ed Referral 11/26/2023 11/25/2024 1 1 [facility] [place] for referral (narrative)* Outpatient Procedure (Routine) - Pending Review Specialty Diagnoses / Procedures Referred By Contac t Referred To Contact [facility] Diagnoses HFrEF (heart failure with reduced ejection fraction) (HCC) Mitral valve insufficiency, unspecified etiology Procedures ECHO ECHO TTHRC R-T 2D W/WOM-MODE COMPL SPEC&COLR D Carmelina Ramos APRN.MILK INSPECTOR [address] [place] [address] [facility] [address] [address] Referral ID Status Reason Start Date Expiration Date Visits Requested Visits Authorized [id number] Pending Review Auto-Generat ed Referral 12/23/2023 12/22/2024 1 1 * Outpatient Procedure (Routine) - Pending Review Specialty Diagnoses / Procedures Referred By Contac t Referred To Contact [facility] Diagnoses HFrEF (heart failure with reduced ejection fraction) (HCC) Mitral valve insufficiency, unspecified etiology Procedures ECG COMPLETE ECG ROUTINE ECG W/LEAST 12 LDS W/I&R Carmelina Ramos APRN.MILK INSPECTOR [address] [place] [address] [facility] [address] [address] Referral ID Status Reason Start Date Expiration Date Visits Requested Visits Authorized [id number] Pending Review Auto-Generat ed Referral 12/23/2023 12/22/2024 1 1 * Transition of Care (Routine) - Ref Not Required Specialty Diagnoses / Procedures Referred By Contac t Referred To Contact [facility] Diagnoses Mitral valve insufficiency, unspecified etiology Procedures CARDIOVASCULAR MEDICINE OP FOLLOW UP APPT ORDER Carmelina Ramos APRN.CNP [address] [place] [address] [address] Referral ID Status Reason Start Date Expiration Date Visits Requested Visits Authorized [id number] Ref Not Required PCP Requested Referral 03/23/2024 12/22/2024 1 1 [facility] [place] for referral (narrative)* Outpatient Procedure (Routine) - Pending Review Specialty Diagnoses / Procedures Referred By Contac t Referred To Contact [facility] Diagnoses Severe mitral regurgitation Cardiomyopathy, ischemic S/P CABG (coronary artery bypass graft) Procedures ECHO ECHO TTHRC R-T 2D W/WOM-MODE COMPL SPEC&COLR D Efren Brady MD [address] [place] [address] [address] Referral ID Status Reason Start Date Expiration Date Visits Requested Visits Authorized [id number] Pending Review Auto-Generat ed Referral 12/26/2023 12/25/2024 1 1 * Outpatient Procedure (Routine) - Pending Review Specialty Diagnoses / Procedures Referred By Contac t Referred To Contact [facility] Diagnoses Severe mitral regurgitation Cardiomyopathy, ischemic S/P CABG (coronary artery bypass graft) Procedures ECG COMPLETE ECG ROUTINE ECG W/LEAST 12 LDS W/I&R Efren Brady MD [address] [facility] [place] [address] [address] Referral ID Status Reason Start Date Expiration Date Visits Requested Visits Authorized [id number] Pending Review Auto-Generat ed Referral 12/26/2023 12/25/2024 1 1 * Transition of Care (Routine) - Ref Not Required Specialty Diagnoses / Procedures Referred By Morrisac t Referred To Contact [facility] Procedures CARDIOVASCULAR MEDICINE OP FOLLOW UP APPT ORDER Efren Brady MD [address] [facility] [place] [address] [address] Referral ID Status Reason Start Date Expiration Date Visits Requested Visits Authorized [id number] Ref Not Required PCP Requested Referral 03/26/2024 12/25/2024 1 1 * Consult, Test, Treat (Routine) - Authorized Specialty Diagnoses / Procedures Referred By Jordon t Referred To Contact Ent - Otolaryngology Diagnoses Sore throat Procedures CONSULT TO ENT OFFICE/OUTPATIENT [facility] 60 MINUTES Efren Brady MD [address] [place] [address] Referral ID Status Reason Start Date Expiration Date Visits Requested Visits Authorized [id number] Authorized PCP Requested Referral 12/26/2023 12/25/2024 1 1 [facility] [place] for referral (narrative)* Outpatient Procedure (Routine) - Authorized Specialty Diagnoses / Procedures Referred By Jordon rao Referred To Contact [facility] Diagnoses Severe mitral regurgitation Status post implantation of mitral valve leaflet clip Procedures ECG COMPLETE ECG ROUTINE ECG W/LEAST 12 LDS W/I&R Efren Brady MD [address] [place] [address] [address] Referral ID Status Reason Start Date Expiration Date Visits Requested Visits Authorized [id number] Authorized Auto-Generat ed Referral 02/27/2024 2025 1 1 * Outpatient Procedure (Routine) - Authorized Specialty Diagnoses / Procedures Referred By Contac t Referred To Contact [facility] Diagnoses Severe mitral regurgitation Status post implantation of mitral valve leaflet clip Procedures ECG COMPLETE ECG ROUTINE ECG W/LEAST 12 LDS W/I&R Efren Brady MD [address] [place] [address] [place] [phone] Referral ID Status Reason Start Date Expiration Date Visits Requested Visits Authorized [id number] Authorized Auto-Generat ed Referral 02/20/2024 2025 1 1 * Outpatient Procedure (Routine) - Authorized Specialty Diagnoses / Procedures Referred By Contac t Referred To Contact [facility] Diagnoses Severe mitral regurgitation Status post implantation of mitral valve leaflet clip Procedures ECHO ECHO TTHRC R-T 2D W/WOM-MODE COMPL SPEC&[place] [address] [place] [address] [place] [address] Referral ID Status Reason Start Date Expiration Date Visits Requested Visits Authorized [id number] Authorized Auto-Generat ed Referral 02/20/2024 2025 1 1 [facility] [place] for referral (narrative)* Diagnostic Procedure Only (Routine) - Pending Review Specialty Diagnoses / Procedures Referred By Contac t Referred To Contact US IMAGING Diagnoses Carotid stenosis, 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, left Procedures US CAROTID BILATERAL Luís Skinner, MILK INSPECTOR [address] [place] [phone] [facility] [place] [address] Referral ID Status Reason Start Date Expiration Date Visits Requested Visits Authorized [id number] Pending Review Auto-Generat ed Referral 03/18/2024 04/17/2025 1 1 [facility] [place] for referral (narrative)* Outpatient Procedure (Routine) - New Request Specialty Diagnoses / Procedures Referred By Contac t Referred To Contact [facility] Diagnoses Frequent PVCs Procedures ECG COMPLETE ECG ROUTINE ECG W/LEAST 12 LDS W/I&R Nj Wei MD [address] [place] [phone] [facility] [address] [place] [phone] Referral ID Status Reason Start Date Expiration Date Visits Requested Visits Authorized [id number] New Request Auto-Generat ed Referral 07/27/2025 [address] [facility] for referral (narrative)* Diagnostic Procedure Only (Routine) - New Request Specialty Diagnoses / Procedures [facility] Ref[facility] To [facility] Diagnoses Carotid stenosis, 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, left Procedures US CAROTID BILATERAL Luís Skinner, CRAIG [address] [place] [phone] [place] [phone] Referral ID Status Reason Start Date Expiration Date Visits Requested Visits Authorized [id number] New Request Auto-Generat ed Referral 08/18/2024 09/17/2025 1 1 [facility] [place] for referral (narrative)* Outpatient Procedure (Routine) - Closed Specialty Diagnoses / Procedures [facility] Referred To Contact [facility] Diagnoses Pacemaker reprogramming/check Procedures CARDIAC IMPLANTABLE DEVICE CHECK Card Ep Device Clinic Main [address] [place] [phone] [facility] [address] [place] [address] Referral ID Status Reason Start Date Expiration Date V isits Requested Visits Authorized [id number] Closed Auto-Generate d Referral 08/17/2024 08/17/2025 1 1 * Outpatient Procedure (Routine) - Closed Specialty Diagnoses / Procedures [facility] Referred To Contact [facility] Diagnoses Pacemaker reprogramming/check Procedures CARDIAC IMPLANTABLE DEVICE CHECK Card Ep Device [facility] Main [address] [place] [address] [facility] [place] [address] [place] [address] Referral ID Status Reason Start Date Expiration Date V isits Requested Visits Authorized [id number] Closed Auto-Generate d Referral 08/17/2024 08/17/2025 [address] [facility] for visit Narrative* Consultation (Routine) - Authorized Specialty Diagnoses / Procedures Referred By Contac t Referred To Contact Cardiac Rehabilitation Diagnoses Chronic heart failure, unspecified heart failure type (CMS-HCC) Procedures Ambulatory referral to Cardiac Rehabilitation ([facility]) Ref Prov, [place] [address] [facility] Cardiac [facility]hab Billing [address] [place] [address] Referral ID Status Reason Start Date Expiration Date Visits Requested Visits Authorized [id number] Authorized Specialty Services Required 06/18/2024 06/18/2025 36 36 Replaced by [facility] for visit Narrative* Consultation (Routine) - Authorized Specialty Diagnoses / Procedures Referred By Contac t Referred To Contact Cardiac Rehabilitation Diagnoses S/P AVR (aortic valve replacement) Procedures Ambulatory referral to Cardiac Rehabilitation ([facility] [address] [place] [address] [facility] Billing [address] [place] [address] Referral ID Status Reason Start Date Expiration Date Visits Requested Visits Authorized [id number] Authorized Specialty Services Required 06/24/2024 06/24/2025 36 36 Replaced by [facility] for visit Narrative* Consultation (Routine) - Authorized Specialty Diagnoses / Procedures Referred By Contac t Referred To Contact Cardiac Rehabilitation Diagnoses S/P AVR (aortic valve replacement) Procedures Ambulatory referral to Cardiac Rehabilitation ([facility]) Samm Thompson MD [address] [place] [address] Phone: tel: fax: [facility] - Cardiac Rehab [address] [place] [address] Phone: tel:[phone] fax:[phone] Referral ID Status Reason Start Date Expiration Date Visits Requested Visits Authorized [id number] Authorized Specialty Services Required 06/24/2024 06/24/2025 36 36 Replaced by [facility] for visit Narrative* Outpatient Procedure (Routine) - Closed Specialty Diagnoses / Procedures Referred By Jordon t Referred To Contact [facility] Diagnoses Pacemaker reprogramming/check Procedures CARDIAC IMPLANTABLE DEVICE CHECK Card Ep Device Clinic Main [address] [place] [address] 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 (HCC) Chronic systolic heart failure (HCC) S/P CABG (coronary artery bypass graft) Chronic 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) Acute on chronic clinical systolic heart failure (HCC) Stage 3b chronic kidney disease (HCC) Ischemic cardiomyopathy Non-ischemic cardiomyopathy (HCC) Shortness of breath Procedures CARDIOVASCULAR MEDICINE OP FOLLOW UP APPT ORDER Paulina Fernandes MD [address] [place] [address] [address] Referral ID Status Reason Start Date Expiration Date Visits Requested Visits Authorized [id number] Ref Not Required PCP Requested Referral 01/10/2024 01/09/2025 1 1 Specialty Diagnoses / Procedures Referred By Contac t Referred To Contact Nephrology Diagnoses Stage 3b chronic kidney disease (HCC) Procedures CONSULT TO NEPHROLOGY OFFICE/OUTPATIENT [facility] 60 [place] [address] [place] [address] Referral ID Status Reason Start Date Expiration Date Visits Requested Visits Authorized [id number] Authorized PCP Requested Referral 03/30/2024 03/30/2025 1 1 Specialty Diagnoses / Procedures Referred By Contac t Referred To Contact [facility] Diagnoses Cardiomyopathy, ischemic S/P mitral valve clip implantation Procedures ECHO ECHO TTHRC R-T 2D W/WOM-MODE COMPL SPEC&[place] [address] [place] [address] [address] [address] Referral ID Status Reason Start Date Expiration Date Visits Requested Visits Authorized [id number] Authorized Auto-Generat ed Referral 03/30/2024 03/30/2025 1 1 Specialty Diagnoses / Procedures Referred By Contac t Referred To Contact [facility] Diagnoses Cardiomyopathy, ischemic S/P mitral valve clip implantation Procedures ECG COMPLETE ECG ROUTINE ECG W/LEAST 12 LDS W/I&[place] [address] [place] [address] [address] [address] Referral ID Status Reason Start Date Expiration Date Visits Requested Visits Authorized [id number] Authorized Auto-Generat ed Referral 03/30/2024 03/30/2025 1 1 Specialty Diagnoses / Procedures Referred By Contac t Referred To Contact [facility] Procedures CARDIOVASCULAR MEDICINE OP FOLLOW UP APPT ORDER Efren Brady MD [address] [place] [address] [facility] [address] [address] Referral ID Status Reason Start Date Expiration Date Visits Requested Visits Authorized [id number] Ref Not Required PCP Requested Referral 09/30/2024 03/30/2025 1 1 Specialty Diagnoses / Procedures Referred By Contac t Referred To Contact Cardiology Diagnoses Cardiomyopathy, ischemic S/P mitral valve clip implantation Procedures CONSULT TO CARDIOLOGY OFFICE/OUTPATIENT [facility] 60 MINUTES Efren Brady MD [address] [place], [place] [phone] Referral ID Status Reason Start Date Expiration Date Visits Requested Visits Authorized [id number] Authorized PCP Requested Referral 03/30/2024 03/30/2025 1 1 Specialty Diagnoses / Procedures Referred By Contac t Referred To Contact [facility] Procedures CARDIOVASCULAR MEDICINE OP FOLLOW UP APPT ORDER Carmela Fernandes MD [address] [place] [address] [facility] [place] [phone] Referral ID Status Reason Start Date Expiration Date Visits Requested Visits Authorized [id number] Ref Not Required PCP Requested Referral 06/08/2025 1 1 Specialty Diagnoses / Procedures Referred By Contac t Referred To Contact CT IMAGING Diagnoses Lung nodules Procedures CT CHEST W IVCON CAT SCAN OF CHEST CONTRAST Victor M Duval MD [address] [place] [address] [place] [address] Ct [facility] [place] [address] Referral ID Status Reason Start Date Expiration Date V isits Requested Visits Authorized [id number] Closed Auto-Generate d Referral 09/05/2021 10/05/2022 1 1 Specialty Diagnoses / Procedures Referred By Contac t Referred To Contact [facility] Procedures CARDIOVASCULAR MEDICINE [place] [address] [place] [address] [address] [address] Referral ID Status Reason Start Date Expiration Date Visits Requested Visits Authorized [id number] Ref Not Required PCP Requested Referral 05/21/2025 08/19/2025 1 1 Specialty Diagnoses / Procedures Referred By Contac t Referred To Contact [facility] Diagnoses Frequent PVCs Procedures LUNG DIFFUSION CAPACITY (DLCO) DIFFUSING CAPACITY Nj Wei MD [address] [place] [address] [facility] [place] [address] [place] [address] Referral ID Status Reason Start Date Expiration Date Visits Requested Visits Authorized [id number] New Request Auto-Generat ed Referral 08/19/2024 09/18/2025 1 1 Specialty Diagnoses / Procedures Referred By Contac t Referred To [facility] [place] Diagnoses Frequent PVCs Procedures SPIROMETRY BASELINE ONLY SPMTRY W/VC EXPIRATORY DANIEL W/WO MXML VOL VNTJ Nj Wei MD [address] [place] [address] [address] [address] Referral ID Status Reason Start Date Expiration Date Visits Requested Visits Authorized [id number] New Request Auto-Generat ed Referral 08/19/2024 09/18/2025 1 1 Specialty Diagnoses / Procedures Referred By Contac t Referred To Contact [facility] Diagnoses Amaurosis fugax Heart failure, acute systolic (HCC) Acute on chronic systolic congestive heart failure (HCC) PVD (peripheral vascular disease) (HCC) S/P CABG (coronary artery bypass graft) Procedures CARDIOVASCULAR MEDICINE OP FOLLOW UP APPT ORDER Carmela Fernandes MD [address] [place] [address] [facility] [address] [address] Referral ID Status Reason Start Date Expiration Date Visits Requested Visits Authorized [id number] Ref Not Required PCP Requested Referral 08/19/2024 08/19/2025 1 1 Additional Source Comments (unrecognized sect ion and content) No Status Records FoundNo Status Records FoundNo Status Records FoundNo Status Records FoundNo Status Records FoundNo Status Records FoundNo Status Records FoundNo Status Records FoundNo Status Records Found INFORMATION SOURCE (unrecogn ized section and content) DATE CREATED AUTHOR 07/29/2019 [facility] DATE CREATED AUTHOR AUTHOR'S ORGANIZ ATION 05/25/2022 [facility] DATE CREATED AUTHOR AUTHOR'S ORGANIZ ATION 02/22/2023 [facility] DATE CREATED AUTHOR AUTHOR'S ORGANIZ ATION 12/29/2023 [facility] DATE CREATED AUTHOR AUTHOR'S ORGANIZ ATION 03/02/2024 [facility] DATE CREATED AUTHOR AUTHOR'S ORGANIZ ATION 04/17/2024 [facility] [facility] DATE CREATED AUTHOR AUTHOR'S ORGANIZ ATION 05/13/2024 [facility] DATE CREATED AUTHOR AUTHOR'S ORGANIZ ATION 09/10/2024 [facility] DATE CREATED AUTHOR AUTHOR'S ORGANIZ ATION 09/12/2024 [facility] Source Comments (unrecognize d section and content) In the event this informatio n is protected by the Federal Confidentiality of Alcohol and Drug Abuse Patient Records regulations: The Federal rules restrict any use of the information to criminally investigate or prosecute any alcohol or drug abuse patient.[facility] the event this information is protected by the Federal Confidentiality of Alcohol and Drug Abuse Patient Records regulations: The Federal rules restrict any use of the information to criminally investigate or prosecute any alcohol or drug abuse patient.[facility] SystemIn the event this information is protected by the Federal Confidentiality of Alcohol and Drug Abuse Patient Records regulations: The Federal rules restrict any use of the information to criminally investigate or prosecute any alcohol or drug abuse patient.[facility] SystemIn the event this information is protected by the Federal Confidentiality of Alcohol and Drug Abuse Patient Records regulations: The Federal rules restrict any use of the information to criminally investigate or prosecute any alcohol or drug abuse patient.[facility] SystemIn the event this information is protected by the Federal Confidentiality of Alcohol and Drug Abuse Patient Records regulations: The Federal rules restrict any use of the information to criminally investigate or prosecute any alcohol or drug abuse patient.[facility] SystemIn the event this information is protected by the Federal Confidentiality of Alcohol and Drug Abuse Patient Records regulations: The Federal rules restrict any use of the information to criminally investigate or prosecute any alcohol or drug abuse patient.[facility] SystemIn the event this information is protected by the Federal Confidentiality of Alcohol and Drug Abuse Patient Records regulations: The Federal rules restrict any use of the information to criminally investigate or prosecute any alcohol or drug abuse patient.[facility] SystemIn the event this information is protected by the Federal Confidentiality of Alcohol and Drug Abuse Patient Records regulations: The Federal rules restrict any use of the information to criminally investigate or prosecute any alcohol or drug abuse patient.[facility] SystemIn the event this information is protected by the Federal Confidentiality of Alcohol and Drug Abuse Patient Records regulations: The Federal rules restrict any use of the information to criminally investigate or prosecute any alcohol or drug abuse patient.[facility] SystemIn the event this information is protected by the Federal Confidentiality of Alcohol and Drug Abuse Patient Records regulations: The Federal rules restrict any use of the information to criminally investigate or prosecute any alcohol or drug abuse patient.[facility] SystemIn the event this information is protected by the Federal Confidentiality of Alcohol and Drug Abuse Patient Records regulations: The Federal rules restrict any use of the information to criminally investigate or prosecute any alcohol or drug abuse patient.[facility] SystemIn the event this information is protected by the Federal Confidentiality of Alcohol and Drug Abuse Patient Records regulations: The Federal rules restrict any use of the information to criminally investigate or prosecute any alcohol or drug abuse patient.[facility] SystemIn the event this information is protected by the Federal Confidentiality of Alcohol and Drug Abuse Patient Records regulations: The Federal rules restrict any use of the information to criminally investigate or prosecute any alcohol or drug abuse patient.[facility] SystemIn the event this information is protected by the Federal Confidentiality of Alcohol and Drug Abuse Patient Records regulations: The Federal rules restrict any use of the information to criminally investigate or prosecute any alcohol or drug abuse patient.[facility] SystemIn the event this information is protected by the Federal Confidentiality of Alcohol and Drug Abuse Patient Records regulations: The Federal rules restrict any use of the information to criminally investigate or prosecute any alcohol or drug abuse patient.[facility] SystemIn the event this information is protected by the Federal Confidentiality of Alcohol and Drug Abuse Patient Records regulations: The Federal rules restrict any use of the information to criminally investigate or prosecute any alcohol or drug abuse patient.[facility] SystemIn the event this information is protected by the Federal Confidentiality of Alcohol and Drug Abuse Patient Records regulations: The Federal rules restrict any use of the information to criminally investigate or prosecute any alcohol or drug abuse patient.[facility] SystemIn the event this information is protected by the Federal Confidentiality of Alcohol and Drug Abuse Patient Records regulations: The Federal rules restrict any use of the information to criminally investigate or prosecute any alcohol or drug abuse patient.[facility] SystemIn the event this information is protected by the Federal Confidentiality of Alcohol and Drug Abuse Patient Records regulations: The Federal rules restrict any use of the information to criminally investigate or prosecute any alcohol or drug abuse patient.[facility] SystemIn the event this information is protected by the Federal Confidentiality of Alcohol and Drug Abuse Patient Records regulations: The Federal rules restrict any use of the information to criminally investigate or prosecute any alcohol or drug abuse patient.[facility] SystemIn the event this information is protected by the Federal Confidentiality of Alcohol and Drug Abuse Patient Records regulations: The Federal rules restrict any use of the information to criminally investigate or prosecute any alcohol or drug abuse patient.[facility] SystemIn the event this information is protected by the Federal Confidentiality of Alcohol and Drug Abuse Patient Records regulations: The Federal rules restrict any use of the information to criminally investigate or prosecute any alcohol or drug abuse patient.[facility] SystemIn the event this information is protected by the Federal Confidentiality of Alcohol and Drug Abuse Patient Records regulations: The Federal rules restrict any use of the information to criminally investigate or prosecute any alcohol or drug abuse patient.[facility] SystemIn the event this information is protected by the Federal Confidentiality of Alcohol and Drug Abuse Patient Records regulations: The Federal rules restrict any use of the information to criminally investigate or prosecute any alcohol or drug abuse patient.[facility] SystemIn the event this information is protected by the Federal Confidentiality of Alcohol and Drug Abuse Patient Records regulations: The Federal rules restrict any use of the information to criminally investigate or prosecute any alcohol or drug abuse patient.[facility] SystemIn the event this information is protected by the Federal Confidentiality of Alcohol and Drug Abuse Patient Records regulations: The Federal rules restrict any use of the information to criminally investigate or prosecute any alcohol or drug abuse patient.[facility] SystemIn the event this information is protected by the Federal Confidentiality of Alcohol and Drug Abuse Patient Records regulations: The Federal rules restrict any use of the information to criminally investigate or prosecute any alcohol or drug abuse patient.[facility] SystemIn the event this information is protected by the Federal Confidentiality of Alcohol and Drug Abuse Patient Records regulations: The Federal rules restrict any use of the information to criminally investigate or prosecute any alcohol or drug abuse patient.[facility] SystemIn the event this information is protected by the Federal Confidentiality of Alcohol and Drug Abuse Patient Records regulations: The Federal rules restrict any use of the information to criminally investigate or prosecute any alcohol or drug abuse patient.[facility] SystemIn the event this information is protected by the Federal Confidentiality of Alcohol and Drug Abuse Patient Records regulations: The Federal rules restrict any use of the information to criminally investigate or prosecute any alcohol or drug abuse patient.[facility] SystemIn the event this information is protected by the Federal Confidentiality of Alcohol and Drug Abuse Patient Records regulations: The Federal rules restrict any use of the information to criminally investigate or prosecute any alcohol or drug abuse patient.[facility] SystemIn the event this information is protected by the Federal Confidentiality of Alcohol and Drug Abuse Patient Records regulations: The Federal rules restrict any use of the information to criminally investigate or prosecute any alcohol or drug abuse patient.[facility] SystemIn the event this information is protected by the Federal Confidentiality of Alcohol and Drug Abuse Patient Records regulations: The Federal rules restrict any use of the information to criminally investigate or prosecute any alcohol or drug abuse patient.[facility] SystemIn the event this information is protected by the Federal Confidentiality of Alcohol and Drug Abuse Patient Records regulations: The Federal rules restrict any use of the information to criminally investigate or prosecute any alcohol or drug abuse patient.[facility] SystemIn the event this information is protected by the Federal Confidentiality of Alcohol and Drug Abuse Patient Records regulations: The Federal rules restrict any use of the information to criminally investigate or prosecute any alcohol or drug abuse patient.[facility] SystemIn the event this information is protected by the Federal Confidentiality of Alcohol and Drug Abuse Patient Records regulations: The Federal rules restrict any use of the information to criminally investigate or prosecute any alcohol or drug abuse patient.[facility] SystemIn the event this information is protected by the Federal Confidentiality of Alcohol and Drug Abuse Patient Records regulations: The Federal rules restrict any use of the information to criminally investigate or prosecute any alcohol or drug abuse patient.[facility] SystemIn the event this information is protected by the Federal Confidentiality of Alcohol and Drug Abuse Patient Records regulations: The Federal rules restrict any use of the information to criminally investigate or prosecute any alcohol or drug abuse patient.[facility] SystemIn the event this information is protected by the Federal Confidentiality of Alcohol and Drug Abuse Patient Records regulations: The Federal rules restrict any use of the information to criminally investigate or prosecute any alcohol or drug abuse patient.[facility] SystemIn the event this information is protected by the Federal Confidentiality of Alcohol and Drug Abuse Patient Records regulations: The Federal rules restrict any use of the information to criminally investigate or prosecute any alcohol or drug abuse patient.[facility] SystemIn the event this information is protected by the Federal Confidentiality of Alcohol and Drug Abuse Patient Records regulations: The Federal rules restrict any use of the information to criminally investigate or prosecute any alcohol or drug abuse patient.[facility] SystemIn the event this information is protected by the Federal Confidentiality of Alcohol and Drug Abuse Patient Records regulations: The Federal rules restrict any use of the information to criminally investigate or prosecute any alcohol or drug abuse patient.[facility] SystemIn the event this information is protected by the Federal Confidentiality of Alcohol and Drug Abuse Patient Records regulations: The Federal rules restrict any use of the information to criminally investigate or prosecute any alcohol or drug abuse patient.[facility] SystemIn the event this information is protected by the Federal Confidentiality of Alcohol and Drug Abuse Patient Records regulations: The Federal rules restrict any use of the information to criminally investigate or prosecute any alcohol or drug abuse patient.[facility] SystemIn the event this information is protected by the Federal Confidentiality of Alcohol and Drug Abuse Patient Records regulations: The Federal rules restrict any use of the information to criminally investigate or prosecute any alcohol or drug abuse patient.[facility] SystemIn the event this information is protected by the Federal Confidentiality of Alcohol and Drug Abuse Patient Records regulations: The Federal rules restrict any use of the information to criminally investigate or prosecute any alcohol or drug abuse patient.[facility] SystemIn the event this information is protected by the Federal Confidentiality of Alcohol and Drug Abuse Patient Records regulations: The Federal rules restrict any use of the information to criminally investigate or prosecute any alcohol or drug abuse patient.[facility] SystemIn the event this information is protected by the Federal Confidentiality of Alcohol and Drug Abuse Patient Records regulations: The Federal rules restrict any use of the information to criminally investigate or prosecute any alcohol or drug abuse patient.[facility] SystemIn the event this information is protected by the Federal Confidentiality of Alcohol and Drug Abuse Patient Records regulations: The Federal rules restrict any use of the information to criminally investigate or prosecute any alcohol or drug abuse patient.[facility] SystemIn the event this information is protected by the Federal Confidentiality of Alcohol and Drug Abuse Patient Records regulations: The Federal rules restrict any use of the information to criminally investigate or prosecute any alcohol or drug abuse patient.[facility] SystemIn the event this information is protected by the Federal Confidentiality of Alcohol and Drug Abuse Patient Records regulations: The Federal rules restrict any use of the information to criminally investigate or prosecute any alcohol or drug abuse patient.[facility] SystemIn the event this information is protected by the Federal Confidentiality of Alcohol and Drug Abuse Patient Records regulations: The Federal rules restrict any use of the information to criminally investigate or prosecute any alcohol or drug abuse patient.[facility] SystemIn the event this information is protected by the Federal Confidentiality of Alcohol and Drug Abuse Patient Records regulations: The Federal rules restrict any use of the information to criminally investigate or prosecute any alcohol or drug abuse patient.[facility] SystemIn the event this information is protected by the Federal Confidentiality of Alcohol and Drug Abuse Patient Records regulations: The Federal rules restrict any use of the information to criminally investigate or prosecute any alcohol or drug abuse patient.[facility] SystemIn the event this information is protected by the Federal Confidentiality of Alcohol and Drug Abuse Patient Records regulations: The Federal rules restrict any use of the information to criminally investigate or prosecute any alcohol or drug abuse patient.[facility] SystemIn the event this information is protected by the Federal Confidentiality of Alcohol and Drug Abuse Patient Records regulations: The Federal rules restrict any use of the information to criminally investigate or prosecute any alcohol or drug abuse patient.[facility] SystemIn the event this information is protected by the Federal Confidentiality of Alcohol and Drug Abuse Patient Records regulations: The Federal rules restrict any use of the information to criminally investigate or prosecute any alcohol or drug abuse patient.[facility] SystemIn the event this information is protected by the Federal Confidentiality of Alcohol and Drug Abuse Patient Records regulations: The Federal rules restrict any use of the information to criminally investigate or prosecute any alcohol or drug abuse patient.[facility] SystemIn the event this information is protected by the Federal Confidentiality of Alcohol and Drug Abuse Patient Records regulations: The Federal rules restrict any use of the information to criminally investigate or prosecute any alcohol or drug abuse patient.[facility] SystemIn the event this information is protected by the Federal Confidentiality of Alcohol and Drug Abuse Patient Records regulations: The Federal rules restrict any use of the information to criminally investigate or prosecute any alcohol or drug abuse patient.[facility] SystemIn the event this information is protected by the Federal Confidentiality of Alcohol and Drug Abuse Patient Records regulations: The Federal rules restrict any use of the information to criminally investigate or prosecute any alcohol or drug abuse patient.[facility] SystemIn the event this information is protected by the Federal Confidentiality of Alcohol and Drug Abuse Patient Records regulations: The Federal rules restrict any use of the information to criminally investigate or prosecute any alcohol or drug abuse patient.[facility] SystemIn the event this information is protected by the Federal Confidentiality of Alcohol and Drug Abuse Patient Records regulations: The Federal rules restrict any use of the information to criminally investigate or prosecute any alcohol or drug abuse patient.[facility] SystemIn the event this information is protected by the Federal Confidentiality of Alcohol and Drug Abuse Patient Records regulations: The Federal rules restrict any use of the information to criminally investigate or prosecute any alcohol or drug abuse patient.[facility] SystemIn the event this information is protected by the Federal Confidentiality of Alcohol and Drug Abuse Patient Records regulations: The Federal rules restrict any use of the information to criminally investigate or prosecute any alcohol or drug abuse patient.[facility] SystemIn the event this information is protected by the Federal Confidentiality of Alcohol and Drug Abuse Patient Records regulations: The Federal rules restrict any use of the information to criminally investigate or prosecute any alcohol or drug abuse patient.[facility] SystemIn the event this information is protected by the Federal Confidentiality of Alcohol and Drug Abuse Patient Records regulations: The Federal rules restrict any use of the information to criminally investigate or prosecute any alcohol or drug abuse patient.[facility] SystemIn the event this information is protected by the Federal Confidentiality of Alcohol and Drug Abuse Patient Records regulations: The Federal rules restrict any use of the information to criminally investigate or prosecute any alcohol or drug abuse patient.[facility] SystemIn the event this information is protected by the Federal Confidentiality of Alcohol and Drug Abuse Patient Records regulations: The Federal rules restrict any use of the information to criminally investigate or prosecute any alcohol or drug abuse patient.[facility] SystemIn the event this information is protected by the Federal Confidentiality of Alcohol and Drug Abuse Patient Records regulations: The Federal rules restrict any use of the information to criminally investigate or prosecute any alcohol or drug abuse patient.[facility] SystemIn the event this information is protected by the Federal Confidentiality of Alcohol and Drug Abuse Patient Records regulations: The Federal rules restrict any use of the information to criminally investigate or prosecute any alcohol or drug abuse patient.[facility] SystemIn the event this information is protected by the Federal Confidentiality of Alcohol and Drug Abuse Patient Records regulations: The Federal rules restrict any use of the information to criminally investigate or prosecute any alcohol or drug abuse patient.[facility] SystemIn the event this information is protected by the Federal Confidentiality of Alcohol and Drug Abuse Patient Records regulations: The Federal rules restrict any use of the information to criminally investigate or prosecute any alcohol or drug abuse patient.[facility] SystemIn the event this information is protected by the Federal Confidentiality of Alcohol and Drug Abuse Patient Records regulations: The Federal rules restrict any use of the information to criminally investigate or prosecute any alcohol or drug abuse patient.[facility] SystemIn the event this information is protected by the Federal Confidentiality of Alcohol and Drug Abuse Patient Records regulations: The Federal rules restrict any use of the information to criminally investigate or prosecute any alcohol or drug abuse patient.[facility] SystemIn the event this information is protected by the Federal Confidentiality of Alcohol and Drug Abuse Patient Records regulations: The Federal rules restrict any use of the information to criminally investigate or prosecute any alcohol or drug abuse patient.[facility] SystemIn the event this information is protected by the Federal Confidentiality of Alcohol and Drug Abuse Patient Records regulations: The Federal rules restrict any use of the information to criminally investigate or prosecute any alcohol or drug abuse patient.[facility] SystemIn the event this information is protected by the Federal Confidentiality of Alcohol and Drug Abuse Patient Records regulations: The Federal rules restrict any use of the information to criminally investigate or prosecute any alcohol or drug abuse patient.[facility] SystemIn the event this information is protected by the Federal Confidentiality of Alcohol and Drug Abuse Patient Records regulations: The Federal rules restrict any use of the information to criminally investigate or prosecute any alcohol or drug abuse patient.[facility] SystemIn the event this information is protected by the Federal Confidentiality of Alcohol and Drug Abuse Patient Records regulations: The Federal rules restrict any use of the information to criminally investigate or prosecute any alcohol or drug abuse patient.[facility] SystemIn the event this information is protected by the Federal Confidentiality of Alcohol and Drug Abuse Patient Records regulations: The Federal rules restrict any use of the information to criminally investigate or prosecute any alcohol or drug abuse patient.[facility] SystemIn the event this information is protected by the Federal Confidentiality of Alcohol and Drug Abuse Patient Records regulations: The Federal rules restrict any use of the information to criminally investigate or prosecute any alcohol or drug abuse patient.[facility] SystemIn the event this information is protected by the Federal Confidentiality of Alcohol and Drug Abuse Patient Records regulations: The Federal rules restrict any use of the information to criminally investigate or prosecute any alcohol or drug abuse patient.[facility] SystemIn the event this information is protected by the Federal Confidentiality of Alcohol and Drug Abuse Patient Records regulations: The Federal rules restrict any use of the information to criminally investigate or prosecute any alcohol or drug abuse patient.[facility] SystemIn the event this information is protected by the Federal Confidentiality of Alcohol and Drug Abuse Patient Records regulations: The Federal rules restrict any use of the information to criminally investigate or prosecute any alcohol or drug abuse patient.[facility] SystemIn the event this information is protected by the Federal Confidentiality of Alcohol and Drug Abuse Patient Records regulations: The Federal rules restrict any use of the information to criminally investigate or prosecute any alcohol or drug abuse patient.[facility] SystemIn the event this information is protected by the Federal Confidentiality of Alcohol and Drug Abuse Patient Records regulations: The Federal rules restrict any use of the information to criminally investigate or prosecute any alcohol or drug abuse patient.[facility] SystemIn the event this information is protected by the Federal Confidentiality of Alcohol and Drug Abuse Patient Records regulations: The Federal rules restrict any use of the information to criminally investigate or prosecute any alcohol or drug abuse patient.[facility] SystemIn the event this information is protected by the Federal Confidentiality of Alcohol and Drug Abuse Patient Records regulations: The Federal rules restrict any use of the information to criminally investigate or prosecute any alcohol or drug abuse patient.[facility] SystemIn the event this information is protected by the Federal Confidentiality of Alcohol and Drug Abuse Patient Records regulations: The Federal rules restrict any use of the information to criminally investigate or prosecute any alcohol or drug abuse patient.[facility] SystemIn the event this information is protected by the Federal Confidentiality of Alcohol and Drug Abuse Patient Records regulations: The Federal rules restrict any use of the information to criminally investigate or prosecute any alcohol or drug abuse patient.[facility] SystemIn the event this information is protected by the Federal Confidentiality of Alcohol and Drug Abuse Patient Records regulations: The Federal rules restrict any use of the information to criminally investigate or prosecute any alcohol or drug abuse patient.[facility] SystemIn the event this information is protected by the Federal Confidentiality of Alcohol and Drug Abuse Patient Records regulations: The Federal rules restrict any use of the information to criminally investigate or prosecute any alcohol or drug abuse patient.[facility] SystemIn the event this information is protected by the Federal Confidentiality of Alcohol and Drug Abuse Patient Records regulations: The Federal rules restrict any use of the information to criminally investigate or prosecute any alcohol or drug abuse patient.[facility] SystemIn the event this information is protected by the Federal Confidentiality of Alcohol and Drug Abuse Patient Records regulations: The Federal rules restrict any use of the information to criminally investigate or prosecute any alcohol or drug abuse patient.[facility] SystemIn the event this information is protected by the Federal Confidentiality of Alcohol and Drug Abuse Patient Records regulations: The Federal rules restrict any use of the information to criminally investigate or prosecute any alcohol or drug abuse patient.[facility] SystemIn the event this information is protected by the Federal Confidentiality of Alcohol and Drug Abuse Patient Records regulations: The Federal rules restrict any use of the information to criminally investigate or prosecute any alcohol or drug abuse patient.[facility] SystemIn the event this information is protected by the Federal Confidentiality of Alcohol and Drug Abuse Patient Records regulations: The Federal rules restrict any use of the information to criminally investigate or prosecute any alcohol or drug abuse patient.[facility] SystemIn the event this information is protected by the Federal Confidentiality of Alcohol and Drug Abuse Patient Records regulations: The Federal rules restrict any use of the information to criminally investigate or prosecute any alcohol or drug abuse patient.[facility] SystemIn the event this information is protected by the Federal Confidentiality of Alcohol and Drug Abuse Patient Records regulations: The Federal rules restrict any use of the information to criminally investigate or prosecute any alcohol or drug abuse patient.[facility] SystemIn the event this information is protected by the Federal Confidentiality of Alcohol and Drug Abuse Patient Records regulations: The Federal rules restrict any use of the information to criminally investigate or prosecute any alcohol or drug abuse patient.[facility] SystemIn the event this information is protected by the Federal Confidentiality of Alcohol and Drug Abuse Patient Records regulations: The Federal rules restrict any use of the information to criminally investigate or prosecute any alcohol or drug abuse patient.[facility] Reason for Visit (unrecogniz ed section and content) Reason Comments Radiotherapy On-treatment Visit Reason Comments Prostate Cancer Reason Comments Appointment Reason Comments Received Outside Medical Records Reason Comments Consult Reason Comments Radiology NM Specialty Diagnoses / Procedures Referred By Contac t Referred To Contact MOLECULAR & FUNCTIONAL IMAGING Diagnoses Chronic systolic heart failure (HCC) Coronary artery disease involving [place] coronary artery of [place] heart without angina pectoris Procedures NM PET/CT CARDIAC PERF REST/STRESS MYOCRD IMG PET PRFUJ INDUSTRIAL ENGINEERING STD RST & STRS CNCRNT CT Zahra Pierre MD [address] [place] [address] Molecular & Functional Imaging [address] [place] [address] Referral ID Status Reason Start Date Expiration Date V isits Requested Visits Authorized [id number] Closed Auto-Generate d Referral 09/06/2022 10/06/2023 1 [...] Referred By Contac t Referred To Contact [facility] IN[facility]IENT Diagnoses Mitral valve insufficiency, unspecified etiology to be admitted prior on 02/14 and will remain in the house for the procedure. Mitral Valve Transcatheter Zksk-ic-Wruu Repair (M-AZAEL) w/ [employer] MitraClip Procedure on: 02/18/24 at 10:30 am Procedures TCAT MITRAL VALVE REPAIR INITIAL PROSTHESIS TRANSCATHETER MITRAL VALVE REPAIR PERCUTANEOUS INCLUDE TRANSSEPTAL PUNCTURE WHEN PERFORMED INITIAL PROSTHESIS IV Fluids/Drips, IV Lock [facility] Main [address] [place] [address] Referral ID Status Reason Start Date Expiration Date Visits Re quested Visits Authorized [id number] 1 1 Reason Comments Amaurosis fugax Reason Comments Patient Update Pre admission Reason Comments TIA Specialty Diagnoses / Procedures Referred By Contac t Referred To Contact Diagnoses TIA Procedures N/A [facility] Main Prea [address] [place] [address] Referral ID Status Reason Start Date Expiration Date Visits Re quested Visits Authorized [id number] 1 1 Reason Comments Hospital Discharge Specialty Diagnoses / Procedures Referred By Contac t Referred To Contact [facility] [place] Procedures CARDIOVASCULAR MEDICINE OP FOLLOW UP APPT ORDER Efren Brady MD [address] [place] [address] [facility] [place] [address] Referral ID Status Reason Start Date Expiration Date Visits Requested Visits Authorized [id number] Ref Not Required PCP Requested Referral 03/26/2024 [...] GAMALIEL IMRT 39 fractions Yung Andrade MD [address] [place] [address] [place] [address] Yung Andrade MD [address] [place] [address] Referral ID Status Reason Start Date Expiration Date Visits Re quested Visits Authorized [id number] Closed 10/12/2021 09/15/2022 [address] Specialty Diagnoses / Procedures Referred By Jordon rao Referred To Contact CT IMAGING Diagnoses Lung nodules Procedures CT CHEST W IVCON CAT SCAN OF CHEST CONTRAST Victor M Duval MD [address] [place] [address] [place] [address] [place] [address] Referral ID Status Reason Start Date Expiration Date V isits Requested Visits Authorized [id number] Closed Auto-Generate d Referral 09/05/2021 10/05/2022 1 [...] Care Teams (unrecognized sec tion and content) Retail Analytics Manager Relationship Specialty Start Date End Date Samm Thompson MD PCP - General Family Practice 05/30/12 [facility] [address] [place] [address] Primary Staff Physician Cardiology 12/02/18 Retail Analytics Manager Relationship Specialty Start Date End Date Samm Thompsno MD PCP - General Family Practice 05/30/12 [facility] [address] [place] [address] Primary Staff Physician Cardiology 12/02/18 Retail Analytics Manager Relationship Specialty Start Date End Date Samm Thompson MD PCP - General Family Practice 05/30/12 [facility] [address] [place] [address] Primary Staff Physician Cardiology 12/02/18 Retail Analytics Manager Relationship Specialty Start Date End Date Samm Thompson MD PCP - General Family Practice 05/30/12 [facility] Vagesh [address] [facility] [place] [address] Primary Staff Physician Cardiology 12/02/18 Retail Analytics Manager Relationship Specialty Start Date End Date Samm Thompson MD PCP - General Family Practice 05/30/12 [address] [facility] [place] [address] Primary Staff Physician Cardiology 12/02/18 Retail Analytics Manager Relationship Specialty Start Date End Date Samm Thompson MD PCP - General Family Practice 05/30/12 [facility] Vagesh [address] [facility] [address] Primary Staff Physician Cardiology 12/02/18 Retail Analytics Manager Relationship Specialty Start Date End Date Samm Thompson MD PCP - General Family Medicine 05/30/12 [facility] [address] [facility] [place] [address] Primary Staff Physician Cardiology 12/02/18 Retail Analytics Manager Relationship Specialty Start Date End Date Samm Thompson MD PCP - General Family Medicine 05/30/12 [facility] Vag[facility] [address] [facility] [place] [address] Primary Staff Physician Cardiology 12/02/18 Retail Analytics Manager Relationship Specialty Start Date End Date Samm Thompson MD PCP - General Family Medicine 05/30/12 [facility] Tom Vagesh [address] [place] [address] Primary Staff Physician Cardiology 12/02/18 Retail Analytics Manager Relationship Specialty Start Date End Date Samm Thompson MD PCP - General Family Medicine 05/30/12 [facility], Tom Vagesh [address] [place] [address] Primary Staff Physician Cardiology 12/02/18 Retail Analytics Manager Relationship Specialty Start Date End Date Samm Thompson MD PCP - General Family Medicine 05/30/12 [place], Tom Vagesh [address] [place] [address] Primary Staff Physician Cardiology 12/02/18 Retail Analytics Manager Relationship Specialty Start Date End Date Samm Thompson MD PCP - General Family Medicine 05/30/12 [facility], Tom Vagesh [address] [place] [address] Primary Staff Physician Cardiology 12/02/18 Retail Analytics Manager Relationship Specialty Start Date End Date Samm Thompson MD PCP - General Family Medicine 05/30/12 [facility] Vagesh [address] [place] [address] Primary Staff Physician Cardiology 12/02/18 Retail Analytics Manager Relationship Specialty Start Date End Date Samm Thompson MD PCP - General Family Medicine 05/30/12 [place], Tom Vagesh [address] [place] [address] Primary Staff Physician Cardiology 12/02/18 Retail Analytics Manager Relationship Specialty Start Date End Date Samm Thompson MD PCP - General Family Medicine 05/30/12 [facility] Tom Vagesh [address] [place] [address] Primary Staff Physician Cardiology 12/02/18 Retail Analytics Manager Relationship Specialty Start Date End Date Samm Thompson MD PCP - General Family Medicine 05/30/12 [place], Tom Vagesh [address] [facility] [place] [address] Primary Staff Physician Cardiology 12/02/18 Retail Analytics Manager Relationship Specialty Start Date End Date Samm Thompson MD PCP - General Family Medicine 05/30/12 Tom Gonzalez Vagesh [address] [place] [address] Primary Staff Physician Cardiology 12/02/18 Retail Analytics Manager Relationship Specialty Start Date End Date Samm Thompson MD PCP - General Family Medicine 05/30/12 Tom Gonzalez Vagesh [address] [place] [address] Primary Staff Physician Cardiology 12/02/18 Retail Analytics Manager Relationship Specialty Start Date End Date Samm Thompson MD PCP - General Family Medicine 05/30/12 [place], Tom Vagesh [address] [facility] [place] [address] Primary Staff Physician Cardiology 12/02/18 Retail Analytics Manager Relationship Specialty Start Date End Date Samm Thompson MD PCP - General Family Medicine 05/30/12 Tom Gonzalez [address] [place] [address] Primary Staff Physician Cardiology 12/02/18 Zahra Pierre MD [address] [place] [address] Primary Staff Physician Cardiology 04/26/23 Retail Analytics Manager Relationship Specialty Start Date End Date Samm Thompson MD PCP - General Family Medicine 05/30/12 Tom Gonzalez [address] [place] [address] Primary Staff Physician Cardiology 12/02/18 Zahra Pierre MD [address] [place] [address] Primary Staff Physician Cardiology 04/26/23 Retail Analytics Manager Relationship Specialty Start Date End Date Samm Thompson MD PCP - General Family Medicine 05/30/12 Tom Gonzalez [address] [place] [address] Primary Staff Physician Cardiology 12/02/18 Zahra Pierre MD [address] [place] [address] Primary Staff Physician Cardiology 04/26/23 Retail Analytics Manager Relationship Specialty Start Date End Date Samm Thompson MD PCP - General Family Medicine 05/30/12 Tom Gonzalez [address] [place] [address] Primary Staff Physician Cardiology 12/02/18 Zahra Pierre MD [address] [place] [address] Primary Staff Physician Cardiology 04/26/23 Retail Analytics Manager Relationship Specialty Start Date End Date Samm Thompson MD PCP - General Family Medicine 05/30/12 Tom Gonzalez [address] [place] [address] Primary Staff Physician Cardiology 12/02/18 Zahra Pierre MD [address] [place] [address] Primary Staff Physician Cardiology 04/26/23 Virgil Carrillo MD [address] [place] [address] Primary Staff Physician Cardiology 10/29/23 Retail Analytics Manager Relationship Specialty Start Date End Date Samm Thompson MD PCP - General Family Medicine 05/30/12 Tom Gonzalez [address] [place] [address] Primary Staff Physician Cardiology 12/02/18 Zahra Pierre MD [address] [place] [address] Primary Staff Physician Cardiology 04/26/23 Virgil Carrillo MD [address] [place] [address] Primary Staff Physician Cardiology 10/29/23 Retail Analytics Manager Relationship Specialty Start Date End Date Samm Thompson MD PCP - General Family Medicine 05/30/12 [facility] [address] [place] [address] Primary Staff Physician Cardiology 12/02/18 Zahra Pierre MD [address] [place] [address] Primary Staff Physician Cardiology 04/26/23 Virgil Carrillo MD [address] [place] [address] Primary Staff Physician Cardiology 10/29/23 Retail Analytics Manager Relationship Specialty Start Date End Date Samm Thompson MD PCP - General Family Medicine 05/30/12 [facility] [address] [place] [address] Primary Staff Physician Cardiology 12/02/18 Zahra Pierre MD [address] [place], [place] [address] Primary Staff Physician Cardiology 04/26/23 Virgil Carrillo MD [address] [place] [address] Primary Staff Physician Cardiology 10/29/23 Retail Analytics Manager Relationship Specialty [place] [address] [place] [address] PCP - General Family Medicine 06/29/19 Retail Analytics Manager Relationship Specialty Start Date End Date Samm Thompson MD PCP - General Family Medicine 05/30/12 Tom Gonzalez [address] [place] [address] Primary Staff Physician Cardiology 12/02/18 Zahra Pierre MD [address] [place] [address] Primary Staff Physician Cardiology 04/26/23 Virgil Carrillo MD [address] [place] [address] Primary Staff Physician Cardiology 10/29/23 Retail Analytics Manager Relationship Specialty Start Date End Date Samm Thompson MD PCP - General Family Medicine 05/30/12 Tom Gonzalez [address] [place] [address] Primary Staff Physician Cardiology 12/02/18 Zahra Pierre MD [address] [place] [address] Primary Staff Physician Cardiology 04/26/23 Virgil Carrillo MD [address] [place] [address] Primary Staff Physician Cardiology 10/29/23 Retail Analytics Manager Relationship Specialty Start Date End Date Samm Thompson MD PCP - General Family Medicine 05/30/12 Tom Gonzalez [address] [facility] [place] [address] Primary Staff Physician Cardiology 12/02/18 Zahra Pierre MD [address] [place] [address] Primary Staff Physician Cardiology 04/26/23 Virgil Carrillo MD [address] [place], [place] [address] Primary Staff Physician Cardiology 10/29/23 Efren Brady MD [address] [place] [address] Primary Staff Physician Cardiology 12/26/23 Retail Analytics Manager Relationship Specialty Start Date End Date Samm Thompson MD PCP - General Family Medicine 05/30/12 Tom Gonzalez [address] [place] [address] Primary Staff Physician Cardiology 12/02/18 Zahra Pierre MD [address] [place] [address] Primary Staff Physician Cardiology 04/26/23 Virgil Carrillo MD [address] [place] [address] Primary Staff Physician Cardiology 10/29/23 Efren Brady MD [address] [place] [address] Primary Staff Physician Cardiology 12/26/23 Retail Analytics Manager Relationship Specialty Start Date End Date Samm Thompson MD PCP - General Family Medicine 05/30/12 Tom Gonzalez [address] [place] [address] Primary Staff Physician Cardiology 12/02/18 Zahra Pierre MD [address] [place] [address] Primary Staff Physician Cardiology 04/26/23 Virgil Carrillo MD [address] [place] [address] Primary Staff Physician Cardiology 10/29/23 Efren Brady MD [address] [place], [place] [address] Primary Staff Physician Cardiology 12/26/23 Retail Analytics Manager Relationship Specialty Start Date End Date Samm Thompson MD PCP - General Family Medicine 05/30/12 Tom Gonzalez [address] [place] [address] Primary Staff Physician Cardiology 12/02/18 Zahra Pierre MD [address] [place] [address] Primary Staff Physician Cardiology 04/26/23 Virgil Carrillo MD [address] [place], [place] [address] Primary Staff Physician Cardiology 10/29/23 Efren Brady MD [address] [place] [address] Primary Staff Physician Cardiology 12/26/23 Retail Analytics Manager Relationship Specialty Start Date End Date Samm Thompson MD PCP - General Family Medicine 05/30/12 Tom Gonzalez [address] [facility] [place] [address] Primary Staff Physician Cardiology 12/02/18 Zahra Pierre MD [address] [place] [id number] Primary Staff Physician Cardiology 04/26/23 Virgil Carrillo MD [address] [place] [address] Primary Staff Physician Cardiology 10/29/23 Efren Brady MD [address] [place] [address] Primary Staff Physician Cardiology 12/26/23 Paulina Fernandes MD [address] [place] [address] Primary Staff Physician Cardiology 01/10/24 Retail Analytics Manager Relationship Specialty Start Date End Date Samm Thompson MD PCP - General Family Medicine 05/30/12 Tom Gonzalez [address] [place] [address] Primary Staff Physician Cardiology 12/02/18 Zahra Pierre MD [address] [place], [place] [address] Primary Staff Physician Cardiology 04/26/23 Virgil Carrillo MD [address] [place], [place] [address] Primary Staff Physician Cardiology 10/29/23 Efren Brady MD [address] [place] [id number] Primary Staff Physician Cardiology 12/26/23 Paulina Fernandes MD [address] [place], [place] [address] Primary Staff Physician Cardiology 01/10/24 Retail Analytics Manager Relationship Specialty Start Date End Date Samm Thompson MD PCP - General Family Medicine 05/30/12 Tom Gonzalez [address] [place] [address] Primary Staff Physician Cardiology 12/02/18 Zahra Pierre MD [facility] [place] [id number] Primary Staff Physician Cardiology 04/26/23 Virgil Carrillo MD [address] [place], [place] [address]398[address] Primary Staff Physician Cardiology 10/29/23 Efren Brady MD [address] [place], [place] [address] Primary Staff Physician Cardiology 12/26/23 Paulina Fernandes MD [address] [place] [address] Primary Staff Physician Cardiology 01/10/24 Retail Analytics Manager Relationship Specialty Start Date End Date Samm Thompson MD PCP - General Family Medicine 05/30/12 Tom Gonzalez [address] [place] [address] Primary Staff Physician Cardiology 12/02/18 Zahra Pierre MD [address] [place] [address] Primary Staff Physician Cardiology 04/26/23 Virgil Carrillo MD [address] [place] [address] Primary Staff Physician Cardiology 10/29/23 Efren Brady MD [address] [place] [address] Primary Staff Physician Cardiology 12/26/23 Paulina Fernandes MD [address] [place] [address] Primary Staff Physician Cardiology 01/10/24 Retail Analytics Manager Relationship Specialty Start Date End Date Samm Thompson MD PCP - General Family Medicine 05/30/12 Tom Gonzalez [address] [place] [address] Primary Staff Physician Cardiology 12/02/18 Zahra Pierre MD [address] [place] [address] Primary Staff Physician Cardiology 04/26/23 Virgil Carrillo MD [address] [place], [place] [id number] Primary Staff Physician Cardiology 10/29/23 Efren Brady MD [address] [place] [address] Primary Staff Physician Cardiology 12/26/23 Paulina Fernandes MD [address] [place] [phone] Primary Staff Physician Cardiology 01/10/24 Retail Analytics Manager Relationship Specialty Start Date End Date Samm Thompson MD PCP - General Family Medicine 05/30/12 Tom Gonzalez [address] [place] [address] Primary Staff Physician Cardiology 12/02/18 Zahra Pierre MD [facility] [place] [id number] Primary Staff Physician Cardiology 04/26/23 Virgil Carrillo MD [address] [place], [place] 6354[address] Primary Staff Physician Cardiology 10/29/23 Efren Brady MD [address] [place], [place] [address] Primary Staff Physician Cardiology 12/26/23 Paulina Fernandes MD [address] [place] [address] Primary Staff Physician Cardiology 01/10/24 Retail Analytics Manager Relationship Specialty Start Date End Date Samm Thompson MD PCP - General Family Medicine 05/30/12 Tom Gonzalez [address] [place] [address] Primary Staff Physician Cardiology 12/02/18 Zahra Pierre MD [address] [place] [address] Primary Staff Physician Cardiology 04/26/23 Virgil Carrillo MD [address] [place] [address] Primary Staff Physician Cardiology 10/29/23 Efren Brady MD [address] [place] [address] Primary Staff Physician Cardiology 12/26/23 Paulina Fernandes MD [address] [place] [address] Primary Staff Physician Cardiology 01/10/24 Retail Analytics Manager Relationship Specialty Start Date End Date Samm Thompson MD PCP - General Family Medicine 05/30/12 Tom Gonzalez [address] [place] [address] Primary Staff Physician Cardiology 12/02/18 Zahra Pierre MD [address] [place] [address] Primary Staff Physician Cardiology 04/26/23 Virgil Carrillo MD [address] [place], [place] [phone] Primary Staff Physician Cardiology 10/29/23 Efren Brady MD [address] [place] [address] Primary Staff Physician Cardiology 12/26/23 Paulina Fernandes MD [facility] [place] [place] [address] Primary Staff Physician Cardiology 01/10/24 Retail Analytics Manager Relationship Specialty Start Date End Date Samm Thompson MD PCP - General Family Medicine 05/30/12 Tom Gonzalez [address] [place] [address] Primary Staff Physician Cardiology 12/02/18 Zahra Pierre MD [facility] [place] [id number] Primary Staff Physician Cardiology 04/26/23 Virgil Carrillo MD [address] [place], [place] [id number] Primary Staff Physician Cardiology 10/29/23 Efren Brady MD [address] [place], [place] [id number] Primary Staff Physician Cardiology 12/26/23 Paulina Fernandes MD [address] [place] [address] Primary Staff Physician Cardiology 01/10/24 Retail Analytics Manager Relationship Specialty Start Date End Date Samm Thompson MD PCP - General Family Medicine 05/30/12 Tom Gonzalez [address] [place] [address] Primary Staff Physician Cardiology 12/02/18 Zahra Pierre MD [address] [place] [address] Primary Staff Physician Cardiology 04/26/23 Virgil Carrillo MD [address] [place] [address] Primary Staff Physician Cardiology 10/29/23 Efren Brady MD [address] [place] [address] Primary Staff Physician Cardiology 12/26/23 Paulina Fernandes MD [address] [place] [address] Primary Staff Physician Cardiology 01/10/24 Retail Analytics Manager Relationship Specialty Start Date End Date Samm Thompson MD PCP - General Family Medicine 05/30/12 Tom Gonzalez [address] [place], [place] [address] Primary Staff Physician Cardiology 12/02/18 Zahra Pierre MD [address] [place] [address] Primary Staff Physician Cardiology 04/26/23 Virgil Carrillo MD [address] [place] [place], [place] [id number] Primary Staff Physician Cardiology 10/29/23 Efren Brady MD [address] [place], [place] [id number] Primary Staff Physician Cardiology 12/26/23 Paulina Fernandes MD [address] [place] [address] Primary Staff Physician Cardiology 01/10/24 Retail Analytics Manager Relationship Specialty Start Date End Date Samm Thompson MD PCP - General Family Medicine 05/30/12 Tom Gonzalez [address] [place] [address] Primary Staff Physician Cardiology 12/02/18 Zahra Pierre MD [facility] [place] [address] Primary Staff Physician Cardiology 04/26/23 Virgil Carrillo MD [address] [place] [address] Primary Staff Physician Cardiology 10/29/23 Efren Brady MD [address] [place], [place] 6627195 Primary Staff Physician Cardiology 12/26/23 Paulina Fernandes MD [address] [place] [address] Primary Staff Physician Cardiology 01/10/24 Retail Analytics Manager Relationship Specialty Start Date End Date Samm Thompson MD PCP - General Family Medicine 05/30/12 Tom Gonzalez [address] [place] [address] Primary Staff Physician Cardiology 12/02/18 Zahra Pierre MD [address] [place] [address] Primary Staff Physician Cardiology 04/26/23 Virgil Carrillo MD [address] [place] [address] Primary Staff Physician Cardiology 10/29/23 Efren Brady MD [address] [place] [address] Primary Staff Physician Cardiology 12/26/23 Paulina Fernandes MD [address] [place] [address] Primary Staff Physician Cardiology 01/10/24 Retail Analytics Manager Relationship Specialty Start Date End Date Samm Thompson MD PCP - General Family Medicine 05/30/12 Tom Gonzalez [address] [place], [place] [address] Primary Staff Physician Cardiology 12/02/18 Zahra Pierre MD [address] [place] [address] Primary Staff Physician Cardiology 04/26/23 Virgil Carrillo MD [address] [place] [address] Primary Staff Physician Cardiology 10/29/23 Efren Brady MD [address] [place], [place] 58908[address] Primary Staff Physician Cardiology 12/26/23 Paulina Fernandes MD [facility] [place] [address] Primary Staff Physician Cardiology 01/10/24 Retail Analytics Manager Relationship Specialty Start Date End Date Samm Thompson MD PCP - General Family Medicine 05/30/12 Tom Gonzalez [address] [place], [place] [address] [place] [address] Primary Staff Physician Cardiology 12/02/18 Zahra Pierre MD [facility] [place] [id number] Primary Staff Physician Cardiology 04/26/23 Virgil Carrillo MD [address] [place] [address] Primary Staff Physician Cardiology 10/29/23 Efren Brady MD [address] [place], [place] 4461895 Primary Staff Physician Cardiology 12/26/23 Paulina Fernandes MD [address] [place] [address] Primary Staff Physician Cardiology 01/10/24 Retail Analytics Manager Relationship Specialty Start Date End Date Samm Thompson MD PCP - General Family Medicine 05/30/12 Tom Gonzalez [address] [place] [address] Primary Staff Physician Cardiology 12/02/18 Zahra Pierre MD [address] [place] [address] Primary Staff Physician Cardiology 04/26/23 Virgil Carrillo MD [address] [place] [address] Primary Staff Physician Cardiology 10/29/23 fEren Brady MD [address] [place] [address] Primary Staff Physician Cardiology 12/26/23 Paulina Fernandes MD [address] [place] [address] Primary Staff Physician Cardiology 01/10/24 Retail Analytics Manager Relationship Specialty Start Date End Date Samm Thompson MD PCP - General Family Medicine 05/30/12 Tom Gonzalez [address] [place], [place] [id number] Primary Staff Physician Cardiology 12/02/18 Zahra Pierre MD [address] [place] [address] Primary Staff Physician Cardiology 04/26/23 Virgil Carrillo MD [address] [place] [address] Primary Staff Physician Cardiology 10/29/23 Efren Brady MD [address] [place] [address] Primary Staff Physician Cardiology 12/26/23 Paulina Fernandes MD [facility] [place] [address] Primary Staff Physician Cardiology 01/10/24 Retail Analytics Manager Relationship Specialty Start Date End Date Samm Thompson MD PCP - General Family Medicine 05/30/12 Tom Gonzalez [address] [place] [address] Primary Staff Physician Cardiology 12/02/18 Zahra Pierre MD [facility] [place] [address] Primary Staff Physician Cardiology 04/26/23 Virgil Carrillo MD [address] [place], [place] 0421695 Primary Staff Physician Cardiology 10/29/23 Efren Brady MD [address] [place], [place] 8542695 Primary Staff Physician Cardiology 12/26/23 Paulina Fernandes MD [address] [place] [address] Primary Staff Physician Cardiology 01/10/24 Retail Analytics Manager Relationship Specialty Start Date End Date Samm Thompson MD PCP - General Family Medicine 05/30/12 Tom Gonzalez [address] [place] [address] Primary Staff Physician Cardiology 12/02/18 Zahra Pierre MD [address] [place] [address] Primary Staff Physician Cardiology 04/26/23 Virgil Carrillo MD [address] [place] [address] Primary Staff Physician Cardiology 10/29/23 Efren Brady MD [address] [place] [address] Primary Staff Physician Cardiology 12/26/23 Carmela Fernandes MD [address] [place] [address] Primary Staff Physician Cardiology 01/10/24 Retail Analytics Manager Relationship Specialty Start Date End Date Samm Thompson MD PCP - General Family Medicine 05/30/12 Tom Gonzalez [address] [place] [address] Primary Staff Physician Cardiology 12/02/18 Zahra Pierre MD [address] [place] [address] Primary Staff Physician Cardiology 04/26/23 Virgil Carrillo MD [address] [place] [address] Primary Staff Physician Cardiology 10/29/23 Efren Brady MD [address] [place] [address] Primary Staff Physician Cardiology 12/26/23 Carmela Fernandes MD [address] [place] [address] Primary Staff Physician Cardiology 01/10/24 Retail Analytics Manager Relationship Specialty Start Date End Date Samm Thompson MD PCP - General Family Medicine 05/30/12 Tom Gonzalez [facility] [place] [address] Primary Staff Physician Cardiology 12/02/18 Zahra Pierre MD [address] [place] [address] Primary Staff Physician Cardiology 04/26/23 Virgil Carrillo MD [address] [place] [address] Primary Staff Physician Cardiology 10/29/23 Efren Brady MD [address] [place], [place] [address]707[address] Primary Staff Physician Cardiology 12/26/23 Carmela Fernandes MD [address] [place] [address] Primary Staff Physician Cardiology 01/10/24 Retail Analytics Manager Relationship Specialty Start Date End Date Samm Thompson MD PCP - General Family Medicine 05/30/12 Tom Gonzalez [address] [place] [address] Primary Staff Physician Cardiology 12/02/18 Zahra Pierre MD [address] [place] [address] Primary Staff Physician Cardiology 04/26/23 Virgil Carrillo MD [address] [place] [id number] Primary Staff Physician Cardiology 10/29/23 Efren Brady MD [address] [place] [address] Primary Staff Physician Cardiology 12/26/23 Carmela Fernandes MD [address] [place] [address] Primary Staff Physician Cardiology 01/10/24 Retail Analytics Manager Relationship Specialty Start Date End Date Samm Thompson MD PCP - General Family Medicine 05/30/12 Tom Gonzalez [address] [place] [address] Primary Staff Physician Cardiology 12/02/18 Retail Analytics Manager Relationship Specialty Start Date End Date Samm Thompson MD PCP - General Family Medicine 05/30/12 Tom Gonzalez [address] [facility] [place], [place] [id number] Primary Staff Physician Cardiology 12/02/18 Retail Analytics Manager Relationship Specialty Start Date End Date Samm Thompson MD PCP - General Family Medicine 05/30/12 Tom Gonzalez [address] [facility] [place] [address] Primary Staff Physician Cardiology 12/02/18 Zahra Pierre MD [address] [place] [address] Primary Staff Physician Cardiology 04/26/23 Virgil Carrillo MD [address] [place] [address] Primary Staff Physician Cardiology 10/29/23 Efren Brady MD [address] [place] [address] Primary Staff Physician Cardiology 12/26/23 Carmela Fernandes MD [address] [place] [address] Primary Staff Physician Cardiology 01/10/24 Retail Analytics Manager Relationship Specialty Start Date End Date Samm Thompson MD PCP - General Family Medicine 02/26/24 Retail Analytics Manager Relationship Specialty Start Date End Date Samm Thompson MD PCP - General Family Medicine 02/26/24 Retail Analytics Manager Relationship Specialty Start Date End Date Samm Thompson MD PCP - General Family Medicine 02/26/24 Retail Analytics Manager Relationship Specialty Start Date End Date Samm Thompson MD PCP - General Family Medicine 02/26/24 Retail Analytics Manager Relationship Specialty Start Date End Date Samm Thompson MD PCP - General Family Medicine 05/30/12 Tom Gonzalez [address] [place] [address] Primary Staff Physician Cardiology 12/02/18 Zahra Pierre MD [facility] [place] [address] Primary Staff Physician Cardiology 04/26/23 Virgil Carrillo MD [address] [place] [address] Primary Staff Physician Cardiology 10/29/23 Efren Brady MD [address] [place] [address] Primary Staff Physician Cardiology 12/26/23 Carmela Fernandes MD [address] [place] [address] Primary Staff Physician Cardiology 01/10/24 Retail Analytics Manager Relationship Specialty Start Date End Date Samm Thompson MD PCP - General Family Medicine 05/30/12 Tom Gonzalez [address] [place] [address] Primary Staff Physician Cardiology 12/02/18 Zahra Pierre MD [address] [place] [address] Primary Staff Physician Cardiology 04/26/23 Virgil Carrillo MD [address] [place] [address] Primary Staff Physician Cardiology 10/29/23 Efren Brady MD [address] [place] [address] Primary Staff Physician Cardiology 12/26/23 Carmela Fernandes MD [address] [place] [address] Primary Staff Physician Cardiology 01/10/24 Retail Analytics Manager Relationship Specialty Start Date End Date Samm Thompson MD PCP - General Family Medicine 05/30/12 Tom Gonzalez [address] [place] [address] Primary Staff Physician Cardiology 12/02/18 Zahra Pierre MD [address] [place] [address] Primary Staff Physician Cardiology 04/26/23 Virgil Carrillo MD [address] [place], [place] [address]896095 Primary Staff Physician Cardiology 10/29/23 Efren Brady MD [address] [place] [address] Primary Staff Physician Cardiology 12/26/23 Carmela Fernandes MD [address] [place] [address] Primary Staff Physician Cardiology 01/10/24 Retail Analytics Manager Relationship Specialty Start Date End Date Samm Thompson MD PCP - General Family Medicine 05/30/12 Tom Gonzalez [address] [place] [address] Primary Staff Physician Cardiology 12/02/18 Zahra Pierre MD [address] [place] [address] Primary Staff Physician Cardiology 04/26/23 Virgil Carrillo MD [address] [place] [address] Primary Staff Physician Cardiology 10/29/23 Efren Brady MD [address] [place] [address] Primary Staff Physician Cardiology 12/26/23 Carmela Fernandes MD [address] [place] [address] Primary Staff Physician Cardiology 01/10/24 Retail Analytics Manager Relationship Specialty Start Date End Date Samm Thompson MD PCP - General Family Medicine 05/30/12 Tom Gonzalez [address] [place] [address] Primary Staff Physician Cardiology 12/02/18 Zahra Pierre MD [address] [place], [place] [phone] Primary Staff Physician Cardiology 04/26/23 Virgil Carrillo MD [address] [place], [place] 1745895 Primary Staff Physician Cardiology 10/29/23 Efren Brady MD [address] [place] [address] Primary Staff Physician Cardiology 12/26/23 Carmela Fernandes MD [facility] [place] [place] [address] Primary Staff Physician Cardiology 01/10/24 Retail Analytics Manager Relationship Specialty Start Date End Date Samm Thompson MD PCP - General Family Medicine 05/30/12 Tom Gonzalez [facility] [place] [address] Primary Staff Physician Cardiology 12/02/18 Zahra Pierre MD [address] [place] [address] Primary Staff Physician Cardiology 04/26/23 Virgil Carrillo MD [address] [place] [address] Primary Staff Physician Cardiology 10/29/23 Efren Brady MD [address] [place] [address] Primary Staff Physician Cardiology 12/26/23 Carmela Fernandes MD [address] [place] [address] Primary Staff Physician Cardiology 01/10/24 Retail Analytics Manager Relationship Specialty Start Date End Date Samm Thompson MD PCP - General Family Medicine 05/30/12 Tom Gonzalez [address] [facility] [place] [address] Primary Staff Physician Cardiology 12/02/18 Zahra Pierre MD [address] [place] [address] Primary Staff Physician Cardiology 04/26/23 Virgil Carrillo MD [address] [place] [address] Primary Staff Physician Cardiology 10/29/23 Efren Brady MD [address] [place] [address] Primary Staff Physician Cardiology 12/26/23 Carmela Fernandes MD [address] [place] [address] Primary Staff Physician Cardiology 01/10/24 Retail Analytics Manager Relationship Specialty Start Date End Date Samm Thompson MD PCP - General Family Medicine 05/30/12 Tom Gonzalez [address] [facility] [place] [address] Primary Staff Physician Cardiology 12/02/18 Zahra Pierre MD [address] [place] [address] Primary Staff Physician Cardiology 04/26/23 Virgil Carrillo MD [address] [place], [place] 2228295 Primary Staff Physician Cardiology 10/29/23 Efren Brady MD [address] [place] [address] Primary Staff Physician Cardiology 12/26/23 Carmela Fernandes MD [address] [place] [address] Primary Staff Physician Cardiology 01/10/24 Retail Analytics Manager Relationship Specialty Start Date End Date Samm Thompson MD PCP - General Family Medicine 05/30/12 Tom Gonzalez [address] [place] [address] Primary Staff Physician Cardiology 12/02/18 Zahra Pierre MD [facility] [place] [place] [address] Primary Staff Physician Cardiology 04/26/23 Virgil Carrillo MD [address] [place], [place] 0731795 Primary Staff Physician Cardiology 10/29/23 Efren Brady MD [address] [place], [place] 1124895 Primary Staff Physician Cardiology 12/26/23 Carmela Fernandes MD [address] [place] [address] Primary Staff Physician Cardiology 01/10/24 Retail Analytics Manager Relationship Specialty Start Date End Date Samm Thompson MD PCP - General Family Medicine 05/30/12 Tom Gonzalez [address] [place] [address] Primary Staff Physician Cardiology 12/02/18 Zahra Pierre MD [address] [place] [address] Primary Staff Physician Cardiology 04/26/23 Virgil Carrillo MD [address] [place] [address] Primary Staff Physician Cardiology 10/29/23 Efren Brady MD [address] [place] [address] Primary Staff Physician Cardiology 12/26/23 Carmela Fernandes MD [address] [place] [address] Primary Staff Physician Cardiology 01/10/24 Retail Analytics Manager Relationship Specialty Start Date End Date Samm Thompson MD PCP - General Family Medicine 05/30/12 Tom Gonzalez [address] [place] [address] Primary Staff Physician Cardiology 12/02/18 Zahra Pierre MD [address] [place] [address] Primary Staff Physician Cardiology 04/26/23 Virgil Carrillo MD [address] [place] [address] Primary Staff Physician Cardiology 10/29/23 Efren Brady MD [address] [place] [address] Primary Staff Physician Cardiology 12/26/23 Carmela Fernandes MD [address] [place] [address] Primary Staff Physician Cardiology 01/10/24 Retail Analytics Manager Relationship Specialty Start Date End Date Samm Thompson MD PCP - General Family Medicine 05/30/12 Tom oGnzalez [facility] [place] [address] Primary Staff Physician Cardiology 12/02/18 Zahra Pierre MD [address] [place] [address] Primary Staff Physician Cardiology 04/26/23 Virgil Carrillo MD [address] [place] [address] Primary Staff Physician Cardiology 10/29/23 Efren Brady MD [address] [place] [address] Primary Staff Physician Cardiology 12/26/23 Carmela Fernandes MD [address] [place] [address] Primary Staff Physician Cardiology 01/10/24 Retail Analytics Manager Relationship Specialty Start Date End Date Samm Thompson MD PCP - General Family Medicine 05/30/12 Tom Gonzalez [address] [place] [address] Primary Staff Physician Cardiology 12/02/18 Zahra Pierre MD [facility] [place] [place] [address] Primary Staff Physician Cardiology 04/26/23 Virgil Carrillo MD [address] [place] [address] Primary Staff Physician Cardiology 10/29/23 Efren Brady MD [address] [place] [address] Primary Staff Physician Cardiology 12/26/23 [place] [address] [place] [address] Primary Staff Physician Cardiology 01/10/24 FOR [...] BE BASED ON THE PRIMARY CLINICAL RECORDS. [facility]. provides no warranty or guarantee of the accuracy or completeness of information in this document.
[2024-09-13] VITALS (12 sets, daily range): BP systolic 93–121; BP diastolic 56–69; PULSE 59–85; TEMP 36.5–36.7; O2SAT 91–95
--- NOTE | 2024-09-13 | PC.NURSE ---
pt complaining about the temperature of his room. Thermostat was set at 75 degrees however the room is at 68 degrees. RN offered the patient warm blankets and he refused stating they wouldn't help. Pt stated he was going to walk down to the waiting room to sleep. RN informed the patient that he was not able to go downstairs to sleep as he was a patient on this floor. RN informed the supervisor trust accounts and she paged maintenance to see if they could increase the temperature at all. Pt notified by the supervisor trust accounts and pt told the RN that he was going to get ahold of his daughter to come pick him up. RN explained to the patient that he would be leaving AMA and would have to sign a paper stating that he understands he is leaving against medical advice. ptt stated that he did not care and would sign whatever if his daughter could come get him.
[2024-09-13 06:06] LABS: Basophils Percent Auto 0.6 % (0.2-2.0); Eosinophils Absolute Auto 0.2 10^3/uL (0.0-0.7); Eosinophils Percent Auto 3.2 % (0.9-7.0); Hematocrit 31.2 % (42.0-54.0); Hemoglobin 9.5 g/dL (14.0-18.0); Immature Granulocytes Abs Auto 0.03 10^3/uL (0.00-0.03); Immature Granulocytes Pct Auto 0.6 % (0.0-0.5); Lymphocytes Absolute Auto 0.9 10^3/uL (1.2-3.8); Lymphocytes Percent Auto 17.8 % (20.5-60.0); Mean Corpuscular HGB Conc 30.4 g/dL (29.9-35.2); Mean Corpuscular Hemoglobin 27.5 pg (25.9-34.0); Mean Corpuscular Volume 90.4 fL (80.0-94.0); Mean Platelet Volume 9.9 fL (9.5-13.5); Monocytes Absolute Auto 0.6 10^3/uL (0.3-0.8); Monocytes Percent Auto 11.9 % (1.7-12.0); Neutrophils Absolute Auto 3.5 10^3/uL (1.4-6.5); Neutrophils Percent Auto 65.9 % (43.0-75.0); Platelet Count 209 10^3/uL (150-450); Red Blood Count 3.45 10^6/uL (4.70-6.10); Red Cell Distribution Width 18.7 % (11.0-15.0); White Blood Count 5.3 10^3/uL (4.0-11.0)
[2024-09-13 06:27] LABS: Alanine Aminotransferase 27 U/L (16-63); Albumin Globulin Ratio 0.7; Albumin Level 2.5 g/dL (3.4-5.0); Alkaline Phosphatase 100 U/L (46-116); Anion Gap 8.3; Aspartate Amino Transferase 37 U/L (15-37); BUN Creatinine Ratio 19.9; Bilirubin Total 1.1 mg/dL (0.2-1.0); Calcium 8.3 mg/dL (8.5-10.1); Carbon Dioxide 29.5 mmol/L (21.0-32.0); Chloride 104 mmol/L (98-107); Estimated GFR (African America 33 (>=60 mL/min/1.73m^2); Estimated GFR (Non-African Ame 27 (>=60 mL/min/1.73m^2); Globulin 3.7 g/dL; Glucose 97 mg/dL (74-106); Magnesium 2.5 mg/dL (1.8-2.4); Potassium 4.8 mmol/L (3.5-5.1); Sodium 137 mmol/L (136-145); Total Protein 6.2 g/dL (6.4-8.2)
[2024-09-13 08:02] LABS: Thyroid Stimulating Hormone 3.674 uIU/mL (0.358-3.740)
[2024-09-13 08:14] LABS: Troponin I High Sensitivity 427.1 pg/mL (4.0-76.1)
[2024-09-13] MEDS: THYROID,PORK 30 MG TABLET 75 MG PO (08:29)
[2024-09-13] MEDS: DIPHENHYDRAMINE HCL 25 MG CAPSULE PO (08:29)
--- NOTE | 2024-09-13 09:26 | P.HP_ITS ---
HPI H&P: HPI History of Present Illness Chief complaint: RETAINING FLUID BLE EDEMA ANEMIA Narrative: Patient presented to the emergency room with increasing shortness of breath. Peripheral edema as well. Starting having some seepage from his legs. 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, he does have elevated high-sensitivity troponin but he typically runs high and is likely troponin leak from the acute combined congestive heart failure When I saw patient this morning in the MedSurg floor, he did not feel significantly improved, he thought maybe the swelling was slightly better but still with dyspnea Opioid HPI Opioid Management Most Recent Pain and Opioid Data: Last Pain Assessment 09/13/24 10:36 Last ORT Total Score 0 09/12/24 20:34 09/12/24 Last ORT Risk Category Low Risk 09/12/24 20:34 09/12/24 Review of Systems ROS Status of ROS 10 or more systems reviewed and unremark able except as noted in history and below [facility] History (Updated 09/12/24 @ 23:17 by Krsytal Beatty RN) GI bleed ?K92.2 - Gastrointestinal hemorrhage, unspecified (ICD-10) Myocardial infarct ?I21.9 - Acute myocardial infarction, unspecified (ICD-10) Prostate CA ?C61 - Malignant neoplasm of prostate (ICD-10) Stroke ?I63.9 - Cerebral infarction, unspecified (ICD-10) Cardiac defibrillator in place ?Z95.810 - Presence of automatic (implantable) cardiac defibrillator (ICD-10) FH: carotid endarterectomy ?Z82.49 - Family history of ischemic heart disease and other diseases of the circulatory system (ICD-10) Non-sustained ventricular tachycardia ?I47.29 - Other ventricular tachycardia (ICD-10) Elevated troponin ?R79.89 - Other specified abnormal findings of blood chemistry (ICD-10) CHF (congestive heart failure) ?I50.9 - Heart failure, unspecified (ICD-10) Surgical History (Updated 09/12/24 @ 23:17 by Krystal Beatty RN) S/P triple vessel bypass ?Z95.1 - Presence of aortocoronary bypass graft (ICD-10) S/P mitral valve clip implantation ?Z98.890 - Other specified postprocedural states (ICD-10) ?Z95.818 - Presence of other cardiac implants and grafts (ICD-10) Family History (Updated 09/12/24 @ 20:47 by Krystal Betaty RN) Brother Family history of CHF (congestive heart failure) Father Family history of myocardial infarction Social History (Updated 09/12/24 @ 20:48 by Krystal Beatty, ARIES) Within the past year, how often did you have a drink containing alcohol: never Score interpretation: A score less than 4 is consistent with normal alcohol consumption. Smoking status: Never smoker Non-prescribed substance use: denies use Highest level of school completed/degree received: some college, no degree Are you now , , , , never or living with a partner: Little interest or pleasure in doing things: not at all Feeling down, depressed, or hopeless: not at all Do you think of yourself as: straight/heterosexual Gender Identity: male Meds Home Medications and Allergies Home Medications ?Medication ?Instructions ?Recorded ?Confirmed ?Type atorvastatin 40 mg tablet 40 mg PO DAILY 09/26/23 09/12/24 History ferrous sulfate 325 mg (65 mg 325 mg PO DAILY 09/26/23 09/13/24 History iron) tablet (Feosol) metoprolol succinate 25 mg 25 mg PO DAILY 09/26/23 09/12/24 History tablet,extended release 24 hr thyroid (pork) 15 mg tablet ([employer]IC[employer] 15 mg PO DAILY 09/26/23 09/12/24 History Thyroid) dapagliflozin propanediol 5 mg 10 mg PO QAM 09/27/23 09/13/24 History tablet (Farxiga) ezetimibe 10 mg tablet 10 mg PO DAILY 09/27/23 09/12/24 History thyroid (pork) 60 mg tablet ([employer]NIC[employer] 60 mg PO DAILY 09/27/23 09/12/24 History Thyroid) apixaban 2.5 mg tablet (Eliquis) 5 mg PO Q12H 09/13/24 09/13/24 History torsemide 20 mg tablet 20 mg PO BID 09/13/24 09/13/24 History Allergies Allergy/AdvReac Type Severity Reaction Status Date / Time latex Allergy Severe Verified 09/26/23 18:05 Exam Constitutional Vital Signs, click to edit/add: Last Vital Signs Temp 98.0 F 09/13/24 08:10 Pulse 72 09/13/24 08:10 Resp 18 09/13/24 08:10 BP 121/56 09/13/24 08:10 Pulse Ox 91 L 09/13/24 03:39 O2 Del Method Room Air 09/13/24 08:10 Documenting provider has reviewed patient's vital signs: yes Common normals: no apparent distress Chest Common normals: inspection of chest normal Respiratory Common normals: abnormal respiratory effort (Mild conversational dyspnea compared to when I see him in the office) Auscultation: rales Cardio Common normals: regular rate and no murmurs; irregular rhythm Extremity Common normals: abnormal to inspection (3+ edema with seepage from legs but no erythema ) Results Labs Labs: Short CBC 09/12/24 09/13/24 Range/Units 18:20 05:37 WBC 6.1 5.3 (4.0-11.0) 10^3/uL Hgb 9.4 L 9.5 L (14.0-18.0) g/dL Hct 31.6 L 31.2 L (42.0-54.0) % Plt Count 236 209 (150-450) 10^3/uL BMP 09/12/24 09/13/24 18:20 05:37 Sodium 137 137 Potassium 4.5 4.8 Chloride 101 104 Carbon Dioxide 33.7 H 29.5 BUN 49.0 H 46.0 H Creatinine 2.51 H 2.31 H Glucose 103 97 Calcium 8.6 8.3 L Liver Function 09/13/24 Range/Units 05:37 Total Bilirubin 1.1 H (0.2-1.0) mg/dL AST 37 (15-37) U/L ALT 27 (16-63) U/L Alkaline Phosphatase 100 (46-116) U/L Albumin 2.5 L (3.4-5.0) g/dL Assessment and Plan Assessment and Plan (1) Anemia: (2) Dyspnea: (3) Abrasion, multiple sites: (4) Edema of both lower legs due to peripheral venous insufficiency: Plan Admission findings: Hypotension, elevated kidney function, hypermagnesemia hide high-sensitivity troponin elevation, elevated BNP consistent with acute combined congestive heart failure with right pleural effusion and left pleural effusion. Acute combined congestive heart failure-given IV Lasix 80 mg last night, no significant effect only 400 cc out. Will change patient to Bumex drip today, watch kidney function closely, consider echocardiogram, continue with Farxiga, torsemide Elevated high-sensitivity troponin-this is likely secondary to the above, he has had high-sensitivity troponins in the past and transferred to [facility], at those times they felt it was not an acute coronary event. Maintain patient on Eliquis Hypermagnesemia-this is likely to resolve with diuresis Chronic kidney disease stage III-a little bit elevated for him but slightly improved today. Likely to deteriorate with Bumex drip but requires that for overall improvement Hypercholesterolemia-continue with home medications Hypothyroidism-check levels, maintain current medications Hypertension by history-hold off on medications if blood pressure remains low Admission status: Patient admitted, failed initial treatment with IV Lasix. Edema persisting, shortness of breath persisting, only 400 cc urine output, patient required Bumex drip, medically necessary treatment will thus span 2 midnights. Inpatient status.
[2024-09-13] MEDS: EZETIMIBE 10 MG TABLET PO (09:35)
[2024-09-13] MEDS: METOPROLOL SUCCINATE 25 MG TAB.ER.24H PO (09:35)
[2024-09-13] MEDS: APIXABAN 5 MG TABLET 2.5 MG PO (09:35)
[2024-09-13] MEDS: FERROUS SULFATE 325 MG TABLET PO (09:35)
[2024-09-13] MEDS: BUMETANIDE 10 MG in 0.9 % SODIUM CHLORIDE 160 ML 20 MG IV (09:36)
[2024-09-13] MEDS: TRIAMCINOLONE ACETONIDE 0.1% CREAM 15 GM TUBE 1 APPLIC TOPICAL ×2 (13:51→21:35)
[2024-09-13] MEDS: DAPAGLIFLOZIN PROPANEDIOL 5 MG 5 EACH PO (15:06)
[2024-09-13] MEDS: APIXABAN 5 MG TABLET PO (21:35)
[2024-09-13] MEDS: ATORVASTATIN CALCIUM 40 MG TABLET PO (21:35)
[2024-09-13] MEDS: TORSEMIDE 20 MG TABLET PO (21:35)
[2024-09-14] VITALS (8 sets, daily range): BP systolic 80–115; BP diastolic 45–78; PULSE 58–80; TEMP 36.4–36.7; O2SAT 90–96
[2024-09-14 05:31] LABS: Basophils Percent Auto 0.6 % (0.2-2.0); Eosinophils Absolute Auto 0.2 10^3/uL (0.0-0.7); Eosinophils Percent Auto 3.3 % (0.9-7.0); Hematocrit 32.3 % (42.0-54.0); Hemoglobin 9.6 g/dL (14.0-18.0); Immature Granulocytes Abs Auto 0.02 10^3/uL (0.00-0.03); Immature Granulocytes Pct Auto 0.4 % (0.0-0.5); Lymphocytes Absolute Auto 0.7 10^3/uL (1.2-3.8); Lymphocytes Percent Auto 12.5 % (20.5-60.0); Mean Corpuscular HGB Conc 29.7 g/dL (29.9-35.2); Mean Corpuscular Hemoglobin 26.6 pg (25.9-34.0); Mean Corpuscular Volume 89.5 fL (80.0-94.0); Mean Platelet Volume 9.5 fL (9.5-13.5); Monocytes Absolute Auto 0.5 10^3/uL (0.3-0.8); Monocytes Percent Auto 9.7 % (1.7-12.0); Neutrophils Absolute Auto 3.8 10^3/uL (1.4-6.5); Neutrophils Percent Auto 73.5 % (43.0-75.0); Platelet Count 206 10^3/uL (150-450); Red Blood Count 3.61 10^6/uL (4.70-6.10); Red Cell Distribution Width 18.6 % (11.0-15.0); White Blood Count 5.2 10^3/uL (4.0-11.0)
[2024-09-14 05:44] LABS: Alanine Aminotransferase 20 U/L (16-63); Albumin Globulin Ratio 0.7; Albumin Level 2.5 g/dL (3.4-5.0); Alkaline Phosphatase 89 U/L (46-116); Anion Gap 9.9; Aspartate Amino Transferase 23 U/L (15-37); BUN Creatinine Ratio 19.1; Bilirubin Total 1.1 mg/dL (0.2-1.0); Calcium 8.5 mg/dL (8.5-10.1); Carbon Dioxide 31.4 mmol/L (21.0-32.0); Chloride 102 mmol/L (98-107); Estimated GFR (African America 31 (>=60 mL/min/1.73m^2); Estimated GFR (Non-African Ame 26 (>=60 mL/min/1.73m^2); Globulin 3.4 g/dL; Glucose 91 mg/dL (74-106); Potassium 3.3 mmol/L (3.5-5.1); Sodium 140 mmol/L (136-145); Total Protein 5.9 g/dL (6.4-8.2)
[2024-09-14 06:48] LABS: Magnesium 2.5 mg/dL (1.8-2.4)
[2024-09-14 06:50] LABS: Troponin I High Sensitivity 514.7 pg/mL (4.0-76.1)
--- NOTE | 2024-09-14 08:28 | P.PN_ITS ---
Progress Note: Subjective Subjective Interval history: Patient states he feels better, still with significant edema in his lower extremities though Exam Constitutional Vital Signs, click to edit/add: Last Vital Signs Temp 98.0 F 09/14/24 07:37 Pulse 62 09/14/24 07:37 Resp 16 09/14/24 07:37 BP 92/50 09/14/24 07:37 Pulse Ox 94 L 09/14/24 07:37 O2 Del Method Room Air 09/14/24 07:37 Documenting provider has reviewed patient's vital signs: yes Common normals: no apparent distress Chest Common normals: inspection of chest normal Respiratory Common normals: abnormal respiratory effort (Mild conversational dyspnea compared to when I see him in the office) Auscultation: rales Cardio Common normals: regular rate and no murmurs; irregular rhythm Extremity Common normals: abnormal to inspection (2+ edema with no sseepage from legs, no erythema ) Progress Note: Objective Labs Labs: Short CBC 09/14/24 Range/Units 04:57 WBC 5.2 (4.0-11.0) 10^3/uL Hgb 9.6 L (14.0-18.0) g/dL Hct 32.3 L (42.0-54.0) % Plt Count 206 (150-450) 10^3/uL BMP 09/14/24 04:57 Sodium 140 Potassium 3.3 L Chloride 102 Carbon Dioxide 31.4 BUN 46.0 H Creatinine 2.41 H Glucose 91 Calcium 8.5 Liver Function 09/14/24 Range/Units 04:57 Total Bilirubin 1.1 H (0.2-1.0) mg/dL AST 23 (15-37) U/L ALT 20 (16-63) U/L Alkaline Phosphatase 89 (46-116) U/L Albumin 2.5 L (3.4-5.0) g/dL Progress Note: A&P Assessment and Plan (1) Anemia: (2) Dyspnea: (3) Abrasion, multiple sites: (4) Edema of both lower legs due to peripheral venous insufficiency: Plan Admission findings: Hypotension, elevated kidney function, hypermagnesemia hide high-sensitivity troponin elevation, elevated BNP consistent with acute combined congestive heart failure with right pleural effusion and left pleural effusion. 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-did seem to work better, repeat Bumex drip over 20 hours today, he had 2 L diuresed yesterday, only 400 cc the day before with 80 of bili 6 IV Elevated high-sensitivity troponin-slightly worse today but still better than he has in the past Hypermagnesemia-this is likely to resolve with diuresis Chronic kidney disease stage III-slightly elevated from previous, better than in the past Hypercholesterolemia-continue with home medications Hypothyroidism-check levels, maintain current medications Hypertension by history-hold off on medications if blood pressure remains low Admission status: Patient admitted, failed initial treatment with IV Lasix. E chad persisting, shortness of breath persisting, only 400 cc urine output, patient required Bumex drip, medically necessary treatment will thus span 2 midnights. Inpatient status likely 1 more day of hospitalization ?
--- NOTE | 2024-09-14 09:12 | CM.NOTE ---
Rounds made with Dr. Serrano, no discharge today. Discussed with pt plan of care and need for another Bumex drip prior to discharge for further diuresing.
[2024-09-14] MEDS: THYROID,PORK 30 MG TABLET 75 MG PO (09:41)
[2024-09-14] MEDS: TORSEMIDE 20 MG TABLET PO ×2 (09:41→21:28)
[2024-09-14] MEDS: BUMETANIDE 10 MG in 0.9 % SODIUM CHLORIDE 160 ML IV (09:41)
[2024-09-14] MEDS: EZETIMIBE 10 MG TABLET PO (09:42)
[2024-09-14] MEDS: FERROUS SULFATE 325 MG TABLET PO (09:42)
[2024-09-14] MEDS: APIXABAN 5 MG TABLET PO ×2 (09:42→21:28)
[2024-09-14] MEDS: POTASSIUM CHLORIDE 10 MEQ ER TABLET PO ×2 (09:42→21:28)
[2024-09-14] MEDS: TRIAMCINOLONE ACETONIDE 0.1% CREAM 15 GM TUBE 1 APPLIC TOPICAL ×2 (09:45→21:29)
[2024-09-14] MEDS: DAPAGLIFLOZIN PROPANEDIOL 5 MG 10 EACH PO (09:47)
--- NOTE | 2024-09-14 10:30 | CM.NOTE ---
Important Message From Medicare discussed with pt, pt verbalizes understanding and signs paper. Original given to pt and copy placed on pt's chart.
[2024-09-14] MEDS: ATORVASTATIN CALCIUM 40 MG TABLET PO (21:29)
[2024-09-15 03:39] VITALS: BP 92/56; PULSE 55; TEMP 36.7; O2SAT 91
[2024-09-15 05:31] LABS: Basophils Percent Auto 0.6 % (0.2-2.0); Eosinophils Absolute Auto 0.1 10^3/uL (0.0-0.7); Eosinophils Percent Auto 2.3 % (0.9-7.0); Hematocrit 32.9 % (42.0-54.0); Hemoglobin 9.9 g/dL (14.0-18.0); Immature Granulocytes Abs Auto 0.02 10^3/uL (0.00-0.03); Immature Granulocytes Pct Auto 0.3 % (0.0-0.5); Lymphocytes Absolute Auto 0.7 10^3/uL (1.2-3.8); Lymphocytes Percent Auto 11.9 % (20.5-60.0); Mean Corpuscular HGB Conc 30.1 g/dL (29.9-35.2); Mean Corpuscular Hemoglobin 26.8 pg (25.9-34.0); Mean Corpuscular Volume 88.9 fL (80.0-94.0); Mean Platelet Volume 9.6 fL (9.5-13.5); Monocytes Absolute Auto 0.6 10^3/uL (0.3-0.8); Monocytes Percent Auto 9.1 % (1.7-12.0); Neutrophils Absolute Auto 4.7 10^3/uL (1.4-6.5); Neutrophils Percent Auto 75.8 % (43.0-75.0); Platelet Count 212 10^3/uL (150-450); Red Cell Distribution Width 18.9 % (11.0-15.0); White Blood Count 6.2 10^3/uL (4.0-11.0)
[2024-09-15 05:50] LABS: Alanine Aminotransferase 23 U/L (16-63); Albumin Globulin Ratio 0.7; Albumin Level 2.7 g/dL (3.4-5.0); Alkaline Phosphatase 98 U/L (46-116); Anion Gap 11.3; Aspartate Amino Transferase 22 U/L (15-37); BUN Creatinine Ratio 18.2; Bilirubin Total 1.2 mg/dL (0.2-1.0); Calcium 8.5 mg/dL (8.5-10.1); Chloride 102 mmol/L (98-107); Estimated GFR (African America 33 (>=60 mL/min/1.73m^2); Estimated GFR (Non-African Ame 27 (>=60 mL/min/1.73m^2); Globulin 3.7 g/dL; Glucose 96 mg/dL (74-106); Potassium 3.3 mmol/L (3.5-5.1); Sodium 142 mmol/L (136-145); Total Protein 6.4 g/dL (6.4-8.2)
[2024-09-15 07:21] VITALS: BP 102/61; PULSE 63; TEMP 36.6; O2SAT 92
[2024-09-15] MEDS: APIXABAN 5 MG TABLET PO ×2 (08:26→21:17)
[2024-09-15] MEDS: FERROUS SULFATE 325 MG TABLET PO (08:26)
[2024-09-15] MEDS: THYROID,PORK 30 MG TABLET 75 MG PO (08:26)
[2024-09-15] MEDS: EZETIMIBE 10 MG TABLET PO (08:26)
[2024-09-15] MEDS: TORSEMIDE 20 MG TABLET PO ×2 (08:26→21:17)
[2024-09-15] MEDS: DAPAGLIFLOZIN PROPANEDIOL 5 MG 10 EACH PO (08:27)
--- NOTE | 2024-09-15 08:27 | P.DS_ITS ---
DS: Providers Provider Date of admission: 09/12/24 22:07 Primary care physician: Samm Serrano MD Consults: 09/13/24 06:50 Consult to Pharmacy Routine Consulting Provider: Reason for consultation: Please [place] me when Med Rec is Updated Has provider been notified: No Occupational Therapy Eval and Treat Routine Reason for consultation: Only if needed for Rehab Has provider been notified: No Physical Therapy Eval and Treat Routine Reason for consultation: Eval and Treat Has provider been notified: No DS: Diagnosis Discharge Diagnosis (1) Anemia: (2) Dyspnea: (3) Abrasion, multiple sites: (4) Edema of both lower legs due to peripheral venous insufficiency: Plan Admission findings: Hypotension, elevated kidney function, hypermagnesemia hide high-sensitivity troponin elevation, elevated BNP consistent with acute combined congestive heart failure with right pleural effusion and left pleural effusion. 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-did seem to work better, repeat Bumex drip over 20 hours today, he had 2 L diuresed yesterday, only 400 cc the day before with 80 of bili 6 IV Elevated high-sensitivity troponin-slightly worse today but still better than he has in the past Hypermagnesemia-this is likely to resolve with diuresis Chronic kidney disease stage III-slightly elevated from previous, better than in the past Hypercholesterolemia-continue with home medications Hypothyroidism-check levels, maintain current medications Hypertension by history-hold off on medications if blood pressure remains low Admission status: Patient admitted, failed initial treatment with IV Lasix. Edema persisting, shortness of breath persisting, only 400 cc urine output, patient required Bumex drip, medically necessary treatment will thus span 2 midnights. Inpatient status likely 1 more day of hospitalization ? ? DS: Summary Time Spent with Patient Time attestation: Total time spent providing and/or coordinating discharge services: Exam Constitutional Vital Signs, click to edit/add: Last Vital Signs Temp 97.9 F 09/15/24 07:21 Pulse 63 09/15/24 07:21 Resp 20 09/15/24 07:21 BP 102/61 09/15/24 07:21 Pulse Ox 92 L 09/15/24 07:21 O2 Del Method Room Air 09/15/24 07:21 DS: Data Data Completed and Pending Labs on day of discharge: Labs from last 24 hours 09/15/24 05:11 WBC 6.2 RBC 3.70 L Hgb 9.9 L Hct 32.9 L MCV 88.9 MCH 26.8 MCHC 30.1 RDW 18.9 H Plt Count 212 MPV 9.6 Neut % (Auto) 75.8 H Lymph % (Auto) 11.9 L [place] % (Auto) 9.1 Eos % (Auto) 2.3 Baso % (Auto) 0.6 Neut # (Auto) 4.7 Lymph # (Auto) 0.7 L [place] # (Auto) 0.6 Eos # (Auto) 0.1 Baso # (Auto) 0.0 Abs Immat Gran (auto) 0.02 Imm/Tot Granulo (auto) 0.3 Sodium 142 Potassium 3.3 L Chloride 102 Carbon Dioxide 32.0 Anion Gap 11.3 BUN 42.0 H Creatinine 2.31 H Est GFR ( Amer) 33 L Est GFR (Non-Af Amer) 27 L BUN/Creatinine Ratio 18.2 Glucose 96 Calcium 8.5 Total Bilirubin 1.2 H AST 22 ALT 23 Alkaline Phosphatase 98 Total Protein 6.4 Albumin 2.7 L Globulin 3.7 Albumin/Globulin Ratio 0.7 Discharge Plan Discharge Disposition: Home, Self-Care Condition: Fair Discharge Medications: New bumetanide 0.5 mg tablet 0.5 mg PO DAILY Qty: 30 11RF Continued Eliquis 2.5 mg tablet 5 mg PO Q12H torsemide 20 mg tablet 20 mg PO BID atorvastatin 40 mg tablet 40 mg PO DAILY metoprolol succinate 25 mg tablet extended release 24 hr 25 mg PO DAILY thyroid (pork) [[facility] Thyroid] 15 mg tablet 15 mg PO DAILY ferrous sulfate [Feosol] 325 mg (65 mg iron) tablet 325 mg PO DAILY ezetimibe 10 mg tablet 10 mg PO DAILY Rx Instructions: in PM dapagliflozin propanediol [Farxiga] 5 mg tablet 10 mg PO QAM thyroid (pork) [[facility] Thyroid] 60 mg tablet 60 mg PO DAILY Print Language: Upper Sorbian Forms: Portal Instructions
[2024-09-15] MEDS: TRIAMCINOLONE ACETONIDE 0.1% CREAM 15 GM TUBE 1 APPLIC TOPICAL ×2 (08:28→21:19)
--- NOTE | 2024-09-15 08:54 | CM.NOTE ---
Rounds made with Dr. Serrano, pt c/o foot pain today making it difficult to ambulate. Dr. Serrano will reorder PT for evaluation prior to discharge.
--- NOTE | 2024-09-15 09:45 | SWNOTE1 ---
SW checked therapy notes. Pt was recommended SNF or HH yesterday by OT. Physical Therapy recommended home alone yesterday. This morning pt refused to do physical therapy. SW to speak with pt.
[2024-09-15] MEDS: ACETAMINOPHEN 325 MG TABLET 650 MG PO (11:11)
[2024-09-15 11:35] VITALS: O2SAT 91
[2024-09-15 11:37] VITALS: BP 107/67; PULSE 76; TEMP 36.7; O2SAT 90
--- NOTE | 2024-09-15 11:39 | SWNOTE1 ---
SW reviewed PT note and pt walked 175 feet, recommended to resume his outpt/cardiac rehab, which was pt's plan after discharge.
--- NOTE | 2024-09-15 12:01 | SWNOTE1 ---
SW did confirm with pt and he does plan on resuming his outpt therapy once he is discharged and he already has an apt. set. Nursing did come in room and pt is staying until tomorrow.
--- NOTE | 2024-09-15 12:47 | P.PN_ITS ---
Progress Note: Subjective Subjective Interval history: Legs feel better from an edema standpoint he is having some neuropathic type pain in his lower extremities, as swelling is persisting but CPH is better Exam Constitutional Vital Signs, click to edit/add: Last Vital Signs Temp 98.1 F 09/15/24 11:37 Pulse 76 09/15/24 11:37 Resp 20 09/15/24 11:37 BP 107/67 09/15/24 11:37 Pulse Ox 90 L 09/15/24 11:37 O2 Del Method Room Air 09/15/24 11:37 Documenting provider has reviewed patient's vital signs: yes Common normals: no apparent distress Chest Common normals: inspection of chest normal Respiratory Common normals: normal respiratory effort (Back to baseline) Auscultation: no rales Cardio Common normals: regular rate and no murmurs; irregular rhythm Extremity Common normals: abnormal to inspection (1-2+ edema with no seepage from legs, no erythema ) Progress Note: Objective Labs Labs: Short CBC 09/15/24 Range/Units 05:11 WBC 6.2 (4.0-11.0) 10^3/uL Hgb 9.9 L (14.0-18.0) g/dL Hct 32.9 L (42.0-54.0) % Plt Count 212 (150-450) 10^3/uL BMP 09/15/24 05:11 Sodium 142 Potassium 3.3 L Chloride 102 Carbon Dioxide 32.0 BUN 42.0 H Creatinine 2.31 H Glucose 96 Calcium 8.5 Liver Function 09/15/24 Range/Units 05:11 Total Bilirubin 1.2 H (0.2-1.0) mg/dL AST 22 (15-37) U/L ALT 23 (16-63) U/L Alkaline Phosphatase 98 (46-116) U/L Albumin 2.7 L (3.4-5.0) g/dL Progress Note: A&P Assessment and Plan (1) Anemia: (2) Dyspnea: (3) Abrasion, multiple sites: (4) Edema of both lower legs due to peripheral venous insufficiency: Plan Admission findings: Hypotension, elevated kidney function, hypermagnesemia hide high-sensitivity troponin elevation, elevated BNP consistent with acute combined congestive heart failure with right pleural effusion and left pleural effusion. 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-did seem to work better, repeat Bumex drip over 20 hours today, he had 2 L diuresed yesterday, only 400 cc the day before with 80 of bili 6 IV, excellent urine output yesterday 3 L, still with some significant edema, patient could benefit from 1 more round of IV Bumex, creatinine is actually improved compared to previous day Elevated high-sensitivity troponin-will repeat tomorrow Hypermagnesemia-this is likely to resolve with diuresis Chronic kidney disease stage III-slightly elevated from previous, better than in the past Hypercholesterolemia-continue with home medications Hypothyroidism-T3 slightly low, will monitor as an outpatient Hypertension by history-hold off on medications if blood pressure remains low Admission status: Patient admitted, failed initial treatment with IV Lasix. Edema persisting, shortness of breath persisting, only 400 cc urine output, patient required Bumex drip, medically necessary treatment will thus span 2 midnights. Inpatient status likely 1 more day of hospitalization ? ?
[2024-09-15] MEDS: BUMETANIDE 10 MG in 0.9 % SODIUM CHLORIDE 160 ML IV (13:37)
[2024-09-15] MEDS: ATORVASTATIN CALCIUM 40 MG TABLET PO (21:17)
[2024-09-15 21:22] VITALS: BP 98/57; PULSE 90; TEMP 36.5; O2SAT 90
[2024-09-15 22:25] VITALS: O2SAT 90
[2024-09-16 05:00] VITALS: BP 98/55; PULSE 86; TEMP 36.8; O2SAT 92
[2024-09-16 06:50] VITALS: BP 113/68
[2024-09-16 07:29] LABS: Basophils Percent Auto 0.3 % (0.2-2.0); Eosinophils Absolute Auto 0.1 10^3/uL (0.0-0.7); Hematocrit 31.4 % (42.0-54.0); Hemoglobin 9.7 g/dL (14.0-18.0); Immature Granulocytes Abs Auto 0.03 10^3/uL (0.00-0.03); Immature Granulocytes Pct Auto 0.5 % (0.0-0.5); Lymphocytes Absolute Auto 1.4 10^3/uL (1.2-3.8); Lymphocytes Percent Auto 22.1 % (20.5-60.0); Mean Corpuscular HGB Conc 30.9 g/dL (29.9-35.2); Mean Corpuscular Hemoglobin 27.2 pg (25.9-34.0); Mean Platelet Volume 9.7 fL (9.5-13.5); Monocytes Absolute Auto 0.6 10^3/uL (0.3-0.8); Monocytes Percent Auto 9.9 % (1.7-12.0); Neutrophils Absolute Auto 4.2 10^3/uL (1.4-6.5); Neutrophils Percent Auto 65.2 % (43.0-75.0); Platelet Count 208 10^3/uL (150-450); Red Blood Count 3.57 10^6/uL (4.70-6.10); Red Cell Distribution Width 19.3 % (11.0-15.0); White Blood Count 6.4 10^3/uL (4.0-11.0)
[2024-09-16 08:11] VITALS: BP 113/72; PULSE 68
[2024-09-16 08:37] LABS: Alanine Aminotransferase 21 U/L (16-63); Albumin Globulin Ratio 0.7; Albumin Level 2.7 g/dL (3.4-5.0); Alkaline Phosphatase 93 U/L (46-116); Anion Gap 13.1; Aspartate Amino Transferase 20 U/L (15-37); BUN Creatinine Ratio 18.7; Bilirubin Total 1.3 mg/dL (0.2-1.0); Calcium 8.4 mg/dL (8.5-10.1); Carbon Dioxide 28.8 mmol/L (21.0-32.0); Chloride 101 mmol/L (98-107); Estimated GFR (African America 35 (>=60 mL/min/1.73m^2); Estimated GFR (Non-African Ame 29 (>=60 mL/min/1.73m^2); Globulin 3.7 g/dL; Glucose 106 mg/dL (74-106); Sodium 140 mmol/L (136-145); Total Protein 6.4 g/dL (6.4-8.2)
[2024-09-16 08:48] LABS: Potassium 2.9 mmol/L (3.5-5.1)
[2024-09-16 08:49] LABS: NT Pro B Type Natriuretic Pept >35000.0 pg/mL (<=1800.0); Troponin I High Sensitivity 594.5 pg/mL (4.0-76.1)
[2024-09-16] MEDS: EZETIMIBE 10 MG TABLET PO (09:13)
[2024-09-16] MEDS: THYROID,PORK 30 MG TABLET 75 MG PO (09:13)
[2024-09-16] MEDS: POTASSIUM CHLORIDE 10 MEQ ER TABLET 20 MEQ PO ×2 (09:13→14:23)
[2024-09-16] MEDS: FERROUS SULFATE 325 MG TABLET PO (09:14)
[2024-09-16] MEDS: APIXABAN 5 MG TABLET PO (09:14)
[2024-09-16] MEDS: METOPROLOL SUCCINATE 25 MG TAB.ER.24H PO (09:14)
[2024-09-16] MEDS: DAPAGLIFLOZIN PROPANEDIOL 5 MG 10 EACH PO (09:14)
[2024-09-16] MEDS: TORSEMIDE 20 MG TABLET PO (09:14)
[2024-09-16] MEDS: TRIAMCINOLONE ACETONIDE 0.1% CREAM 15 GM TUBE 1 APPLIC TOPICAL (09:15)
--- NOTE | 2024-09-16 09:59 | P.PN_ITS ---
Progress Note: Subjective Subjective Interval history: Patient states legs are better now with vertigo, spinning sensation. This is likely related to fluid balance, another 3 L diuresed yesterday Exam Constitutional Vital Signs, click to edit/add: Last Vital Signs Temp 98.3 F 09/16/24 05:00 Pulse 68 09/16/24 08:11 Resp 18 09/16/24 05:00 BP 113/72 09/16/24 08:11 Pulse Ox 92 L 09/16/24 05:00 O2 Del Method Room Air 09/16/24 05:00 Documenting provider has reviewed patient's vital signs: yes Common normals: no apparent distress Chest Common normals: inspection of chest normal Respiratory Common normals: normal respiratory effort (Back to baseline) Auscultation: no rales Cardio Common normals: regular rate and no murmurs; irregular rhythm Extremity Common normals: abnormal to inspection (1 edema with no seepage from legs, no erythema ) Progress Note: Objective Labs Labs: Short CBC 09/16/24 Range/Units 07:01 WBC 6.4 (4.0-11.0) 10^3/uL Hgb 9.7 L (14.0-18.0) g/dL Hct 31.4 L (42.0-54.0) % Plt Count 208 (150-450) 10^3/uL BMP 09/16/24 07:01 Sodium 140 Potassium 2.9 L* Chloride 101 Carbon Dioxide 28.8 BUN 41.0 H Creatinine 2.19 H Glucose 106 Calcium 8.4 L Liver Function 09/16/24 Range/Units 07:01 Total Bilirubin 1.3 H (0.2-1.0) mg/dL AST 20 (15-37) U/L ALT 21 (16-63) U/L Alkaline Phosphatase 93 (46-116) U/L Albumin 2.7 L (3.4-5.0) g/dL Progress Note: A&P Assessment and Plan (1) Anemia: (2) Dyspnea: (3) Abrasion, multiple sites: (4) Edema of both lower legs due to peripheral venous insufficiency: Plan Admission findings: Hypotension, elevated kidney function, hypermagnesemia hide high-sensitivity troponin elevation, elevated BNP consistent with acute combined congestive heart failure with right pleural effusion and left pleural effusion. 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 Chronic kidney disease stage III-improved from previous 2 days Hypercholesterolemia-continue with home medications Hypothyroidism-T3 slightly low, will monitor as an outpatient Iron deficiency anemia-monitor daily, down somewhat today Hypokalemia-patient refuses oral medications yesterday, refusing IV medications today, states he will take his oral medications Hyperbilirubinemia-stable, this is likely secondary to passive congestion from the acute combined congestive heart failure Hypertension by history-hold off on medications if blood pressure remains low Admission status: Patient admitted, failed initial treatment with IV Lasix. Edema persisting, shortness of breath persisting, only 400 cc urine output, patient required Bumex drip, medically necessary treatment will thus span 2 midnights. Inpatient status likely 1 more day of hospitalization ? ?
[2024-09-16] MEDS: MECLIZINE HCL 12.5 MG TABLET 25 MG PO (10:36)
[2024-09-16 11:54] VITALS: O2SAT 93
[2024-09-16 12:32] VITALS: BP 109/71; BP 115/79; PULSE 61; PULSE 79
--- NOTE | 2024-09-16 15:26 | P.DS_ITS ---
DS: Providers Provider Date of admission: 09/12/24 22:07 Primary care physician: Samm Serrano MD Consults: 09/13/24 06:50 Consult to Pharmacy Routine Consulting Provider: Reason for consultation: Please Fouke me when Med Rec is Updated Has provider been notified: No Occupational Therapy Eval and Treat Routine Reason for consultation: Only if needed for Rehab Has provider been notified: No Physical Therapy Eval and Treat Routine Reason for consultation: Eval and Treat Has provider been notified: No 09/15/24 08:28 Physical Therapy Eval and Treat Routine Reason for consultation: @house is bigger than room Has provider been notified: No DS: Diagnosis Discharge Diagnosis (1) Anemia: (2) Dyspnea: (3) Abrasion, multiple sites: (4) Edema of both lower legs due to peripheral venous insufficiency: Plan Admission findings: Hypotension, elevated kidney function, hypermagnesemia hide high-sensitivity troponin elevation, elevated BNP consistent with acute combined congestive heart failure with right pleural effusion and left pleural effusion. 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 Chronic kidney disease stage III-improved from previous 2 days Hypercholesterolemia-continue with home medications Hypothyroidism-T3 slightly low, will monitor as an outpatient Iron deficiency anemia-monitor daily, down somewhat today Hypokalemia-patient refuses oral medications yesterday, refusing IV medications today, states he will take his oral medications Hyperbilirubinemia-stable, this is likely secondary to passive congestion from the acute combined congestive heart failure Hypertension by history-hold off on medications if blood pressure remains low Admission status: Patient admitted, failed initial treatment with IV Lasix. Edema persisting, shortness of breath persisting, only 400 cc urine output, patient required Bumex drip, medically necessary treatment will thus span 2 midnights. Inpatient status likely 1 more day of hospitalization ? DS: Summary Hospital Course Hospital Course: Patient with a known history of acute combined congestive heart failure with reduced ejection fraction of about 30 to 35%, presented to the emergency with increasing swelling in his bilateral lower extremities to the point that he is having some seepage, no evidence for cellulitis, initially given 80 mg of IV Lasix overnight, he only had 450 cc of fluid out with that, CPR was persisting, then pulmonary placed patient on Bumex drip which she tolerated well had just over 2 L out over the next 24 hours this was repeated 2 more successive days and now has had a total of 9 L diuresed with a net of 7.5 L. CBGs stopped, swelling as per they are but much improved from his 3+ admission down to trace to 1+ at discharge. Ambulating better, did have some dizziness but improved with meclizine. At this point we will discharge patient to home in improving condition. Medications see list. See me in the office within the next week or so. He also has a history of chronic kidney disease but his kidney function actually improved throughout the hospitalization despite the diuresis of 9 L Time Spent with Patient Time attestation: Total time spent providing and/or coordinating discharge services: Exam Constitutional Vital Signs, click to edit/add: Last Vital Signs Temp 98.3 F 09/16/24 05:00 Pulse 61 09/16/24 12:32 Resp 18 09/16/24 05:00 BP 115/79 09/16/24 12:32 Pulse Ox 93 L 09/16/24 11:54 O2 Del Method Room Air 09/16/24 11:54 Documenting provider has reviewed patient's vital signs: yes Common normals: no apparent distress Chest Common normals: inspection of chest normal Respiratory Common normals: normal respiratory effort (Back to baseline) Auscultation: no rales Cardio Common normals: regular rate and no murmurs; irregular rhythm Extremity Common normals: abnormal to inspection (1 edema with no seepage from legs, no erythema ) DS: Data Data Completed and Pending Labs on day of discharge: Labs from last 24 hours 09/16/24 07:01 WBC 6.4 RBC 3.57 L Hgb 9.7 L Hct 31.4 L MCV 88.0 MCH 27.2 MCHC 30.9 RDW 19.3 H Plt Count 208 MPV 9.7 Neut % (Auto) 65.2 Lymph % (Auto) 22.1 Esmeralda % (Auto) 9.9 Eos % (Auto) 2.0 Baso % (Auto) 0.3 Neut # (Auto) 4.2 Lymph # (Auto) 1.4 Esmeralda # (Auto) 0.6 Eos # (Auto) 0.1 Baso # (Auto) 0.0 Abs Immat Gran (auto) 0.03 Imm/Tot Granulo (auto) 0.5 Sodium 140 Potassium 2.9 L* Chloride 101 Carbon Dioxide 28.8 Anion Gap 13.1 BUN 41.0 H Creatinine 2.19 H Est GFR ( Amer) 35 L Est GFR (Non-Af Amer) 29 L BUN/Creatinine Ratio 18.7 Glucose 106 Calcium 8.4 L Total Bilirubin 1.3 H AST 20 ALT 21 Alkaline Phosphatase 93 Troponin I High Sens 594.5 H* NT-Pro-B Natriuret Pep >38615.0 H* Total Protein 6.4 Albumin 2.7 L Globulin 3.7 Albumin/Globulin Ratio 0.7 Discharge Plan Discharge Disposition: Home, Self-Care Condition: Fair Discharge Medications: New bumetanide 0.5 mg tablet 0.5 mg PO DAILY Qty: 30 11RF meclizine 25 mg tablet 25 mg PO QID PRN (Reason: dizziness) Qty: 20 0RF Continued Eliquis 2.5 mg tablet 5 mg PO Q12H torsemide 20 mg tablet 20 mg PO BID atorvastatin 40 mg tablet 40 mg PO DAILY metoprolol succinate 25 mg tablet extended release 24 hr 25 mg PO DAILY thyroid (pork) [DETECTIVE NARCOTICS AND VICE Thyroid] 15 mg tablet 15 mg PO DAILY ferrous sulfate [Feosol] 325 mg (65 mg iron) tablet 325 mg PO DAILY ezetimibe 10 mg tablet 10 mg PO DAILY Rx Instructions: in PM dapagliflozin propanediol [Farxiga] 5 mg tablet 10 mg PO QAM thyroid (pork) [[employer]ARCOT[employer] VICE Thyroid] 60 mg tablet 60 mg PO DAILY Activity: increase activity as tolerated Diet: advance to your usual diet Print Language: Maori Patient Instructions: Heart Failure (DC), Edema (DC) Forms: Portal Instructions Follow Up Appointments: Sep.22 @ 10:30am with Dr. Serrano [phone]
--- NOTE | 2024-09-17 14:04 | CM.DCFOLLOWU ---
Person spoke with: José Miguel How are you feeling? On my way to [facility] for Pacemaker (got a call about pacemaker and need to go to [facility] How is your pain? No pain Did you understand your discharge instructions? Yes Do you have any questions about your discharge instructions? No Were you given any prescriptions at discharge? Yes Were you able to get your prescriptions filled? Yes Do you understand how to take your medications as ordered? Yes Do you have any questions about your follow up appointment and do you plan to keep your follow up appointment? No it is scheduled Is there anything else that you would like to discuss? No Questions/Comments/Concerns/Other:
== END 2024-09-16 16:10 | disposition home or self-care (01) | DRG 291 ==
LOC: ER 19:43 → MS 20:27
PROVIDERS: Emergency Medicine; Registered Nurse; Admitting Provider Family Medicine; Emergency Provider Emergency Medicine; PCP Family Medicine; Visit Provider Family Medicine
DX: I13.0 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 disease, or unspecified chronic kidney disease (principal); I50.41 Acute combined systolic (congestive) and diastolic (congestive) heart failure; D50.9 Iron deficiency anemia, unspecified; E03.9 Hypothyroidism, unspecified; E83.41 Hypermagnesemia; E78.00 Pure hypercholesterolemia, unspecified; E80.6 Other disorders of bilirubin metabolism; E87.6 Hypokalemia; I87.2 Venous insufficiency (chronic) (peripheral); I95.9 Hypotension, unspecified; N18.30 Chronic kidney disease, stage 3 unspecified; R42 Dizziness and giddiness; R79.89 Other specified abnormal findings of blood chemistry; S20.419A Abrasion of unspecified back wall of thorax, initial encounter; S20.319A Abrasion of unspecified front wall of thorax, initial encounter; S80.812A Abrasion, left lower leg, initial encounter; S80.811A Abrasion, right lower leg, initial encounter; X58.XXXA Exposure to other specified factors, initial encounter; I25.2 Old myocardial infarction; Z95.1 Presence of aortocoronary bypass graft; Z95.810 Presence of automatic (implantable) cardiac defibrillator; Z95.818 Presence of other cardiac implants and grafts; Z86.73 Personal history of transient ischemic attack (TIA), and cerebral infarction without residual deficits; Z79.01 Long term (current) use of anticoagulants; Z79.899 Other long term (current) drug therapy; Z91.040 Latex allergy status; Z79.890 Hormone replacement therapy
CPT/HCPCS: 36415; 71045; 80048; 80053; 83735; 83880; 84436; 84443; 84484; 85025; 85610; 85730; 86850; 86900; 86901; 93005; 94667; 94761; 96374; 97161; 97164; 97165; 97530; 97535; 99285; G0328; J1940

== ENCOUNTER 2024-11-21 08:52 | Emergency (ER) | payer MEDICARE, OTHER, SELFPAY ==
[2024-11-21] VITALS (15 sets, daily range): BP systolic 110–125; BP diastolic 74–92; PULSE 73–119; TEMP 36.5; O2SAT 91–98; BMI 22.4
--- OUTSIDE RECORDS SUMMARY | 2024-11-21 09:36 | XMS_ITS | CCD ---
Author Organization [facility] Care Team Providers Care [place] Actor Name Role Phone Samm Thompson MD Primary Care Provider [phone] Tom Gonzalez Unavailable [phone] SHARON HOOKS Referring Unavailable MARLENE KRISHNA Attending Unavailable NORMA ARORA Admitting Unavailable SAMM THOMPSON Primary Care Unavailable Samm Thompson MD Primary Care Provider [phone] Tom Gonzalez Unavailable Samm Thompson MD Primary Care Provider [phone] SAMM AYERS Primary [...] DONNA Qureshi, DR ESPINOSA Admitting Unavailable DONNA ., DR [...] Zahra Pierre MD Unavailable Tom Gonzalez Unavailable [phone] Zahra Pierre MD Unavailable Virgil Carrillo MD Unavailable Jethro Brady MD Unavailable Samm Thompson MD Primary Care Provider [phone] Dorcas Fernandes MD Unavailable CHERYL LEES Attending Unavailable SAMM THOMPSON Primary Care Unavailable ABDULAZIZ BENITEZ Consulting Unavailable CHERYL LEES Admitting Unavailable Dom YOUNG, Carmela Unavailable HOY, SAMM M Referring Unavailable HOY, [...] Unavailable ZAHRA LEON Attending Unavailable ZAHRA LEON Attending Unavailable ZAHRA LEON Referring Unavailable HOY, SAMM M Primary Care Unavailable ZAHRA LEON Attending Unavailable ZAHRA LEON Referring Unavailable HOY, SAMM M Primary Care Unavailable HOY, SAMM M Referring Unavailable HOY, SAMM M Referring Unavailable HOY, [...] Unavailable HOY, SAMM M Primary Care Unavailable FUENTES WHEAT Attending Unavailable DEVEN, [place] Referring Unavailable HOY, SAMM M Primary Care Unavailable [place]EN, [place] Referring Unavailable HOY, SAMM M Primary Care Unavailable HOY, SAMM M Primary Care Unavailable HOY, SAMM M Primary Care Unavailable JOSE ANTONIO SERGREG Referring Unavailable HOY, SAMM M Referring Unavailable HOY, SAMM M Primary Care Unavailable CARMELINA RAMOS Attending Unavailable HOY, SAMM M Primary Care Unavailable SHERI BRADYGE Attending Unavailable VIRGIL CARRILLO Referring Unavailable HOY, SAMM M Primary Care Unavailable CARMELA FERNANDES Referring Unavailable HOY, SAMM M Primary Care Unavailable CARMELA FERNANDES Referring Unavailable HOY, SAMM M Primary Care Unavailable HOY, SAMM M Primary Care Unavailable HOY, SAMM M Primary Care Unavailable DEVEN, [place] Referring Unavailable HOY, SAMM M Primary Care Unavailable [place]EN, [place] Referring Unavailable HOY, SAMM M Primary Care Unavailable KELLI, ISREAL R Admitting Unavailable ALEX SPRAGUE Attending Unavailable PETREY, PRISCILLA Referring Unavailable HOY, SAMM M Primary Care Unavailable KELLI, ISREAL R Admitting Unavailable ALEX SPRAGUE Attending Unavailable PETREY, PRISCILLA Referring Unavailable HOY, SAMM M Primary Care Unavailable SUNDARARAJAN, JEANINE Attending Unavaila GENEVA Kaur Referring Unavailable HOY, SAMM M Primary Care Unavailable SUNDARARAJAN, JEANINE Admitting Unavaila ble HOY, SAMM M Primary Care Unavailable HOY, SAMM M Primary Care Unavailable KELLI, ISREAL R Admitting Unavailable PETREY, PRISCILLA Referring Unavailable HOY, SAMM M Primary Care Unavailable PARK SPRAGUEEL Attending Unavailable HOY, SAMM M Referring Unavailable HOY, SAMM M Primary Care Unavailable KELLI, ISREAL R Admitting Unavailable JABER, WAEL Attending Unavailable RUBÉN BUCIO Referring Unavailable HOY, SAMM M Primary Care Unavailable HOY, SAMM M Primary Care Unavailable OSCAR, LEVAR Admitting Unavailable SHAN MOOREAN Attending Unavailable CARMELA FERNANDES Referring Unavailable HOY, [...] Primary Care Unavailable CARMELA FERNANDES Attending Unavailable DEVEN, [place] Referring Unavailable HOY, SAMM [...] Primary Care Unavailable CARMELA FERNANDES Attending Unavailable VIRGIL CARRILLO Referring Unavailable HOY, SAMM [...] Unavailable HOY, SAMM M Primary Care Unavailable LOPEZ, TIARRA Referring Unavailable HOY, SAMM M Primary Care Unavailable RAMLYND, VIRGIL Attending Unavailable LOPEZ, TIARRA Referring Unavailable HOY, SAMM M Primary Care Unavailable RAMCHAND, VIRGIL Referring Unavailable HOY, SAMM M Primary Care Unavailable RAMCHAND, VIRGIL Referring Unavailable HOY, SAMM M Primary Care Unavailable KATZAN, GAVI L Referring Unavailable HOY, SAMM M Primary Care Unavailable KATZAN, GAVI L Referring Unavailable HOY, SAMM M Primary Care Unavailable [place]EN, [place] Referring Unavailable HOY, SAMM M Primary Care Unavailable HOY, SAMM M Primary Care Unavailable LEEANN BLOUNT Admitting Unavailable LEVAR MOORE Attending Unavailable JAMIE HEREDIA Referring Unavailable HOY, SAMM M Primary Care Unavailable JESUSITA AMIN Admitting Unavailable SAIDA LLANOS Attending Unavailable Samm Thompson MD Primary Care Provider [phone] Samm Thompson MD Primary Care Provider [phone] Samm Thompson MD Primary Care Provider [phone] Unavailable Primary Care Provider Unavailabl e IVANIA, HARI Referring Unavailable KAYLEY, SARMED Referring Unavailable MIKE, RAMA Admitting Unavailable JUAN PABLO TAVARES Attending Unavailab le GANGJUAN PABLO COHEN Consulting Unavailab le KAYLEY, SARMED Referring Unavailable IVANIA, HARI Referring Unavailable IVANIA, HARI Referring Unavailable IVANIA, HARI Referring Unavailable IVANIA, HARI Admitting Unavailable KAYLEYHARRYMED Attending Unavailable IVANIA, HARI Referring Unavailable JOSÉ MIGUEL HOWARD Referring Unavailable MOUKARBMALAIKA MURRAY Attending Unavailable KAYLEY, SARMED Referring Unavailable MIKE, RAMA Referring Unavailable MIKE, RAMA Referring Unavailable MARTIN, CHARU Referring Unavailable GANJUAN PABLO HAM Referring Unavailab le PIRKL, VILMA Referring Unavailable MALAIKA AFUST Referring Unavailable MALAIKA FAUST Attending Unavailable BEKA YOUNG Attending Unavailable IVANIA, HARI Referring Unavailable ZAHRA LEON Referring Unavailable HOY, SAMM M Primary Care Unavailable DIRK SANDERS Referring Unavailable HOY, SAMM M Primary Care Unavailable Allergies Allergy Classification Reported Allergen(s) Allergy Type Date of Onset Reaction(s) Facility Adhesive Tape (2 sources) Adhesive Tape Substance Allergy 06-16-2012 [facility] Work Phone: Latex (2 sources) Latex Substance Allergy 03-13-2019 [facility] (20 sources) Adhesive Tape; Translations: [ADHESIVE TAPE (ROSINS)] Allergy to substance 06-16-2012 [facility] Work Phone: (20 sources) Latex; Translations: [LATEX] Drug Allergy 03-13-2019 [facility] (3 sources) Latex Drug allergy (disorder) 11-04-2013 [facility] Repository Medications Current Medications Medication Drug Class(es) Dates Sig (Normalized) Sig (Original) apixaban 2.5 mg oral tablet (20 sources) Factor Xa Inhibitor Start: 09-25-2024 End: 10-25-2024 take 1 tablet by mouth twice daily apixaban (ELIQUIS) 2.5 mg tab(s) Take 1 tablet by mouth two times a day. 30 tablet 2 09/25/2024 10/25/2024 Active Start: 07-26-2024 take 1 tablet by anuja th twice daily apixaban (ELIQUIS) 5 mg tab(s) Take 1 tablet by mouth two times a day. 30 tablet 3 07/26/2024 Suspended Start: 05-16-2024 End: 06-15-2024 take 1 tablet [...] sources) HMG-CoA Reductase Inhibitor Start: 9 End: 4 take 1 tablet by mouth once daily [...] Active cetirizine hydrochloride 10 mg oral tablet (20 sources) Histamine-1 Receptor Antagonist Start: 07-26-2024 take [...] tablet (9 sources) P2Y12 Platelet Inhibitor Start: 03-06-20 24 End: 04-01-20 24 take 1 tablet by mouth once daily clopidogrel (PLAVIX) 75 mg tablet Take 1 tablet by mouth once daily for 26 doses. Patient should start on March 06, 2024. 26 tablet 0 03/06/2024 Active levothyroxine sodium 0.088 mg oral tablet (3 sources) l-Thyroxine Start: 09-25-19 End: 12-25-19 take 1 tablet by mouth once daily levothyroxine (SYNTHROID) 88 mcg tablet Take 1 tablet by mouth once daily. 90 tablet 09/25/2024 12/24/2024 Active lisinopril 5 mg oral tablet (20 sources) Angiotensin Converting Enzyme Inhibitor Start: 04-11-20 End: 08-22-20 take 1 tablet by mouth once daily [...] 1 tablet by anuja th once daily. mexiletine hydrochloride 200 mg oral capsule (3 sources) Antiarrhythmic Start: 09-25-19 End: 10-25-19 take 1 capsule by mouth every twelve hours mexiletine (MEXITIL) 200 mg capsule Take 1 capsule by mouth every 12 hours. 60 capsule 09/25/2024 10/25/2024 Active perflutren lipid microspheres 1.3 mL in NaCl (PF) 0.9% 10 mL injection (DEFINITY) (20 sources) Start: 03-04-20 End: 03-11-20 perflutren lipid microspheres 1.3 mL in NaCl [...] PHENYLephrine 2.5 % 1 Drop (AK-DILATE, IFRAH-SYNEPHRINE) microencapsulated potassium chloride 20 meq extended release oral tablet (11 sources) Start: 09-25-2024 End: 10-25-2024 take 2 tablets by mouth once daily potassium chloride ER (KLOR-CON) 20 mEq tablet Take 2 tablets by mouth once daily. 60 tablet 09/25/2024 10/25/2024 Active Start: 02-07-2024 End: 08-05-2024 take 1 tablet by mouth once daily potassium chloride ER (KLOR-CON) 20 mEq tablet Take 1 tablet by mouth once daily. 30 tablet 5 02/07/2024 08/05/2024 Suspended sildenafil 100 mg oral tablet (20 sources) Phosphodiesterase 5 Inhibitor Start: 07-07-2021 sildenafiL [...] % (flush ) 10 mL (BD POSIFLUSH) sodium chloride (SALT AND SODA) liqd (3 sources) Start: 09-25-2024 End: 10-25-2024 sodium chloride (SALT AND SODA) liqd Use 5-10 mL as instructed four times daily. 09/25/2024 10/25/2024 Active torsemide 20 mg oral tablet (20 sources) Loop Diuretic Start: 09-25-2024 End: 10-25-2024 take 4 tablets by mouth once daily torsemide (DEMADEX) 20 mg tablet Take 4 tablets by mouth once daily. 120 tablet 09/25/2024 10/25/2024 Active Start: 07-26-2024 take 2 tablets by [facility] twice daily torsemide (DEMADEX) 20 mg tablet Take 2 tablets by mouth two times a day. 60 tablet 3 07/26/2024 Suspended Start: 03-13-2019 End: 10-29-2023 take 1 tablet by mouth once daily as needed torsemide (DEMADEX) 10 mg tablet Take 10 mg by mouth daily as needed. 03/13/2019 Active Comment on above: Take 1 tablet by [facility] once daily. triamcinolone acetonide 1 mg/ml topical cream (5 sources) Corticosteroid triamcinolone acetonide (KENALOG) 0.1 % cream Apply 1 application to affected area two times a day. Active tropicamide 10 mg/ml ophthalmic solution (2 sources) Anticholinergic Start: End: tropicamide 1 % 1 Drop (MYDRIACYL) zireqkx-xcfr-pnuts-or eg-capryl 100 mg-150 mg- 50 mg-150 mg capsule (20 sources) take 1 capsule by mouth once daily prbwkrb-qzhc-tvtij-o reg-capryl 100 mg-150 mg- 50 mg-150 mg capsule Take 1 capsule by mouth daily. Active take 1 capsule by mo ut once daily prqnefa-mtsd-pgmvg-oreg-capryl 100 mg-15 0 mg- 50 mg-150 mg capsule Take 1 capsule by mouth daily. 0 Active ubidecarenone 100 mg oral ca psule (20 sources) coenzyme Q10 (CO Q-10) 100 mg cap capsule Take 100 mg by mouth once daily. Active coenzyme Q10 (CO Q-10) 100 mg cap capsule Take 100 mg by mouth two times a day. Active take 1 capsule by [facility] once in the morning coenzyme Q10 30 [...] daily. zinc gluconate 50 mg oral tablet (20 sources) take 1 tablet by mouth once daily zinc gluconate 50 mg tablet Take 50 mg by mouth daily. Active zinc sulfate 220 mg oral capsule (3 sources) Start: 09-25-2024 End: 10-25-2024 take 1 capsule by mouth once daily zinc sulfate 220 mg (50 mg zinc) capsule Take 1 capsule by mouth once daily. 09/25/2024 10/25/2024 Active Completed/Discontinued Medications Medication Drug Class(es) Dates Sig (Normalized) Sig (Original) acetaminophen 325 mg oral tablet (9 sources) Start: 07-03-2012 End: 06-06-2022 take 325-650 mg by mouth every four hours as needed acetaminophen 325 mg tablet Take 1-2 tablets by mouth every 4 hours as needed. 0 07/03/2012 06/06/2022 Discontinued Comment on above: Take 1-2 tablets by mouth every 4 hours as needed. amiodarone hydrochloride 200 mg oral tablet (6 sources) Antiarrhythmic Start: 08-30-2024 amiodarone (PACERONE) 200 mg tablet Take 200 mg BID for 6 weeks then decrease to 200 mg daily 60 tablet 2 08/30/2024 Suspended aspirin 81 mg chewable tablet (20 sources) [...] tablet (9 sources) Androgen Receptor Inhibitor Start: 021 End: take 1 tablet by mouth once daily bicalutamide (CASODEX) 50 mg tablet Take 1 tablet by mouth once daily. 30 tablet 2 11/30/2021 06/06/2022 Discontinued Comment on above: Take 1 tablet by anuja th once daily. dapagliflozin 10 mg oral tablet (20 sources) Sodium-Glucose Cotransporter 2 Inhibitor Start: 024 End: 025 take 1 tablet by mouth once daily at breakfast dapagliflozin propanediol (FARXIGA) 10 mg tablet Take 1 tablet by mouth daily with breakfast. 90 tablet 3 06/01/2024 06/01/2025 Suspended Start: 05-23-2022 End: 12-03-2023 take 1 tablet by mouth once daily FARXIGA 10 mg tablet Take 1 tablet by mouth once daily. 90 tablet 3 12/03/2022 10/30/2023 Discontinued Comment on above: Take 10 mg by mouth once daily. Take 1 tablet by anuja th once daily. Take 10 mg by mouth daily with breakfast. empagliflozin 10 mg oral tablet (1 source) Sodium-Glucose Cotransporter 2 Inhibitor Start: End: take 1 tablet by mouth once daily at breakfast empagliflozin (JARDIANCE) 10 mg tablet Take 1 tablet by mouth daily with breakfast. 90 tablet 3 06/01/2024 06/01/2024 Discontinued (Course of therapy completed) ezetimibe 10 mg oral tablet (20 sources) Dietary Cholesterol Absorption Inhibitor Start: End: take 1 tablet by mouth once daily ezetimibe (ZETIA) 10 mg tablet Take 1 tablet by mouth once daily. 90 tablet 3 06/19/2024 Suspended Comment on above: Take 10 mg by mouth once daily. famotidine 20 mg oral tablet (9 sources) Histamine-2 Receptor Antagonist Start: End: take 1 tablet by mouth once daily famotidine (PEPCID) 20 mg tablet Take 1 tablet by mouth once daily. 30 tablet 3 07/27/2024 08/19/2024 Discontinued (Discontinued by another Health Care Provider) ferrous sulfate 325 mg oral tablet (13 sources) Start: End: take 1 tablet by mouth once daily FEROSUL 325 mg (65 mg iron) tablet Take 1 tablet by mouth once daily. 0 05/15/2022 10/02/2022 Discontinued (Course of therapy completed) Start: 05-15-2022 take 1 tablet by anuja th twice daily FEROSUL 325 mg (65 mg iron) tablet Take 1 tablet by mouth twice daily. 0 05/15/2022 Active take 1 tablet by anuja th once daily ferrous sulfate 325 mg (65 mg iron) tablet Take 325 mg by mouth once daily. Suspended Comment on above: Take 1 tablet by [...] tablet (2 sources) Proton Pump Inhibitor Start: 05-16-20 End: 06-01-20 take 1 tablet by mouth twice daily before mealtime, then take 4 tablets by mouth in the evening pantoprazole DR (PROTONIX) 40 mg tablet Take 1 tablet by mouth two times a day before meals at 6 am and 4 pm. 05/16/2024 06/01/2024 Discontinued (Course of therapy completed) rivaroxaban 15 mg oral tablet (20 sources) Factor Xa Inhibitor Start: 02-19-20 End: 02-19-20 take 1 tablet by mouth once daily at dinner rivaroxaban (XARELTO) 15 mg tablet Take 1 tablet by mouth daily with dinner. 90 tablet 3 2024 02/18/2025 Suspended spironolactone 25 mg oral tablet (20 sources) Aldosterone Antagonist Start: 08-20-20 End: 08-20-20 take 0.5 tablet by mouth once daily [...] daily. 05/17/2024 07/21/2024 Discontinued (Cost of medication) thyroid (residential) 60 mg oral tablet (20 sources) Start: 05-25-2024 take 1 tablet by mouth once daily VALVE INSERTER THYROID 60 mg tablet Take 1 tablet by mouth once daily. Give 1 tablet by mouth every 24 hours for give with 15mg =75mg total 05/25/2024 Suspended Start: 05-16-2024 End: 07-21-2024 take 1 tablet by mouth once daily, then take 1 tablet by mouth every twenty-four hours thyroid (VALVE INSERTER THYROID) 15 mg tablet Take 1 tablet by mouth once daily. Give 1 tablet by mouth every 24 hours for give with 60mg=75mg total 05/25/2024 Suspended Start: 03-26-2023 take 1 tablet by mouth once da marin VALVE INSERTER THYROID 15 mg tablet Take 15 mg by mouth once daily. 03/26/2023 Suspended take 1.25 tablets by mouth in the morning thyroid, pork, (VALVE INSERTER THYROID) 60 mg tablet Take 1.25 tablets [...] mg by mouth once daily. as directed. Turmeric extract (20 sources) End: 10-25-2022 TURMERIC [...] Problem Classification Problem Date Documented Date Episodic/Chronic Abdominal pain (3 sources) Indigestion; Translations: [Epigastric pain] Onset: 09-22-2024 09-22-2024 Episodic Acute and unspecified renal failure (6 sources) Acute kidney failure, unspecified; Translations: [Acute renal failure syndrome] Onset: 06-28-2022 09-22-2024 Episodic Acute cerebrovascular disease (20 sources) Cerebrovascular accident; Translations: [Other cerebral infarction] Onset: 08-18-2021 Chronic Acute cerebrovascular disease (1 source) Acute cerebrovascular disease Onset: 02-26-2024 Cancer of prostate (1 source) History of malignant neoplasm of prostate; Translations: [Personal history of malignant neoplasm of prostate] 03-31-2024 Episodic Cardiac dysrhythmias (20 sources) Atrial fibrillation and flutter ; Translations: [Atrial fib/flutter, transient] Onset: 05-03-2012 03-02-2024 Chronic Cataract (1 source) Nuclear senile cataract; Translations: [Age-related nuclear cataract, bilateral] 03-02-2024 Chronic Chronic kidney disease (20 sources) Chronic kidney disease, unspecified; Translations: [Chronic kidney disease stage 3B ] Onset: 05-18-2022 01-10-2024 Chronic Chronic kidney disease (2 sources) Chronic kidney disease; Translations: [CKD stage 3b, GFR 30-44 ml/min (HCC)] Onset: 03-03-2024 Complication of device; implant or graft (20 sources) Arteriosclerosis of coronary artery bypass graft; Translations: [Atherosclerosis of coronary artery bypass graft(s) without angina pectoris] Onset: 11-17-2012 Chronic Conduction disorders (10 sources) Presence of automatic (implantable) cardiac defibrillator; Translations: [Patient encounter status] Onset: 07-10-2022 08-17-2024 Chronic Congestive heart failure; nonhypertensive (20 sources) Acute systolic heart failure; Translations: [Acute systolic (congestive) heart failure] Onset: 05-01-2012 Chronic Coronary atherosclerosis and other heart disease (20 sources) Coronary atherosclerosis; Translations: [Atherosclerotic heart disease of [place] coronary artery without angina pectoris] Onset: 04-28-2012 09-11-2021 Chronic Deficiency and other anemia (20 sources) [...] WITHOUT ESOPHAGITIS] Onset: 05-18-2022 Chronic Essential hypertension (4 sources) Essential hypertension; Translations: [Essential (primary) hypertension] Onset: 03-18-2024 10-30-2023 Chronic Fluid and electrolyte disorders (17 sources) Dehydration; Translations: [Metabolic acidosis] Onset: 05-18-2022 09-22-2024 Episodic Heart valve disorders (20 sources) Mitral valve regurgitation; Translations: [Nonrheumatic mitral (valve) insufficiency] Onset: 12-02-2023 Chronic Hypertension with complications and secondary hypertension (7 sources) Hypertensive heart disease with heart failure; Translations: [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 disease, or unspecified chronic kidney disease] Onset: 06-27-2022 Chronic Malaise and fatigue (20 sources) Other fatigue; Translations: [Weakness] Onset: 05-15-2022 Episodic Nutritional deficiencies (20 sources) Deficiency of macronutrients; Translations: [Unspecified severe protein-calorie malnutrition] Onset: 12-26-2023 12-26-2023 Chronic Occlusion or stenosis of precerebral arteries (20 sources) Carotid artery stenosis; Translations: [Occlusion and stenosis of unspecified carotid artery] Onset: 05-01-2012 09-11-2021 Chronic Other aftercare (3 sources) Under care of palliative care physician; Translations: [Encounter for palliative care] Onset: 09-22-2024 09-22-2024 Episodic Other and ill-defined heart disease (20 sources) Mural thrombus of left ventricle; Translations: [Intracardiac thrombosis, not elsewhere classified] Onset: 05-06-2024 05-06-2024 Chronic Other circulatory disease (2 sources) Presence of other cardiac implants and grafts; Translations: [S/P mitral valve clip implantation] Onset: 03-30-2024 Chronic Other male genital disorders (20 sources) Erectile dysfunction co-occurrent and due to arterial insufficiency; Translations: [Erectile dysfunction due to arterial insufficiency] Onset: 09-28-2019 10-12-2019 Chronic Other nervous system disorders (1 source) Other abnormalities of gait and mobility; Translations: [Other abnormalities of gait and mobility] Onset: 08-27-2024 Episodic Other nervous system disorders (3 sources) Taste sense altered; Translations: [Parageusia] Onset: 09-22-2024 09-22-2024 Episodic Other screening for suspected conditions (not mental [...] unspecified] Onset: 11-17-2012 04-26-2023 Chronic Thyroid disorders (9 sources) Hypothyroidism; Translations: [Hypothyroidism, unspecified] Onset: 05-18-2022 [...] Problem Date Documented Da te Episodic/Chronic Acute myocardial infarction (20 sources) True posterior myocardial infarction; Translations: [ST elevation (STEMI) myocardial infarction involving other sites] Onset: 2 Resolved: 2 Chronic Acute posthemorrhagic [...] [Thrombocytopenia, unspecified] Onset: 2 Resolved: 2 Chronic Coronary atherosclerosis and other heart disease (6 sources) Presence of aortocoronary bypass graft; Translations: [Presence of coronary angioplasty implant and graft] Onset: 2 Episodic Diabetes mellitus without complication (20 sources) Metabolic stress hyperglycemia; Translations: [Hyperglycemia, unspecified] Onset: 2 Resolved: 2 Episodic Gastrointestinal hemorrhage (20 sources) Gastrointestinal hemorrhage, unspecified; Translations: [Gastrointestinal hemorrhage] Onset: 4 05-11-2024 Episodic Mood disorders (20 sources) Mood disorders Onset: 1 08-17-2021 Other aftercare (1 source) Other oil heaterman (current) drug therapy; Translations: [OTH HALFWAY CURRENT DRUG THERAPY] Onset: 2 Episodic Other aftercare (1 source) penitentiary (current) use of anticoagulants; Translations: [HALFWAY CURRNT USE ANTICOAGULANTS] Onset: 2 Episodic Other circulatory disease (3 sources) Personal history of transient ischemic attack (TIA), and cerebral infarction without residual deficits; Translations: [PERS HX TIA AND CI NO RESID DEFICIT] Onset: 2 Episodic Other circulatory disease (20 [...] Test Name Value Interpretation Reference Range Facility Comprehensive Metabolic Pane [facility] 11-04-2024 Albumin [Mass/Vol] 3.4 g/dL Low 3.5 - 5.2 g/dL [facility] ALP [Catalytic activity/Vol] 119 U/L 40 - 129 U/L [facility] ALT [Catalytic activity/Vol] 10 U/L 10 - 50 U/L [facility] Anion gap [Moles/Vol] 11 mmol/L 9 - 16 mmol/L [facility] AST [Catalytic activity/Vol] 25 U/L 10 - 50 U/L [facility] Bilirubin [Mass/Vol] 0.6 mg/dL 0.0 - 1.2 mg/dL [facility] Calcium [Mass/Vol] 8.9 mg/dL 8.6 - 10. 4 mg/dL [facility] Chloride [Moles/Vol] 102 mmol/L 98 - 107 mmol/L [facility] CO2 [Moles/Vol] 26 mmol/L 20 - 31 mmol/L [facility] Creatinine [Mass/Vol] 2.1 mg/dL High 0.7 - 1.2 mg/dL [facility] Est, Glom Filt Rate 31 Low - PINF [facility] Comment on above: These results are not intended for use in patients <18 years of age. eGFR results are calculated without a race factor using the 2020 CKD-EPI equation. Careful clinical correlation is recommended, particularly when comparing to results calculated using previous equations. The CKD-EPI equation is less accurate in patients with extremes of muscle mass, extra-renal metabolism of creatine, excessive creatine ingestion, or following therapy that affects renal tubular secretion. Glucose [Mass/Vol] 77 mg/dL 74 - 99 mg/dL [facility] Interpretation and review of laboratory results Abnormal [facility] Potassium [Moles/Vol] 3.9 mmol/L 3.7 - 5.3 mmol/L [facility] Protein [Mass/Vol] 6.2 g/dL Low 6.6 - 8.7 g/dL [facility] Sodium [Moles/Vol] 139 mmol/L 136 - 145 mmol/L [facility] Urea nitrogen [Mass/Vol] 31 mg/dL High 8 - 23 mg/dL [facility] Comprehensive Metabolic Pane aldo 11-03-2024 Albumin [Mass/Vol] 3.2 g/dL Low 3.5 - 5.2 g/dL [facility] ALP [Catalytic activity/Vol] 107 U/L 40 - 129 U/L [facility] ALT [Catalytic activity/Vol] 11 U/L 10 - 50 U/L [facility] Anion gap [Moles/Vol] 10 mmol/L 9 - 16 mmol/L [facility] AST [Catalytic activity/Vol] 23 U/L 10 - 50 U/L [facility] Bilirubin [Mass/Vol] 0.6 mg/dL 0.0 - 1.2 mg/dL [facility] Calcium [Mass/Vol] 8.7 mg/dL 8.6 - 10. 4 mg/dL [facility] Chloride [Moles/Vol] 103 mmol/L 98 - 107 mmol/L [facility] CO2 [Moles/Vol] 26 mmol/L 20 - 31 mmol/L [facility] Creatinine [Mass/Vol] 2.1 mg/dL High 0.7 - 1.2 mg/dL [facility] Est, Glom Filt Rate 31 Low - PINF [facility] Comment on above: These results are not intended for use in patients <18 years of age. eGFR results are calculated without a race factor using the 2020 CKD-EPI equation. Careful clinical correlation is recommended, particularly when comparing to results calculated using previous equations. The CKD-EPI equation is less accurate in patients with extremes of muscle mass, extra-renal metabolism of creatine, excessive creatine ingestion, or following therapy that affects renal tubular secretion. Glucose [Mass/Vol] 109 mg/dL High 74 - 99 mg/dL [facility] Interpretation and review of laboratory results Abnormal [facility] Potassium [Moles/Vol] 4.3 mmol/L 3.7 - 5.3 mmol/L [facility] Protein [Mass/Vol] 6.0 g/dL Low 6.6 - 8.7 g/dL [facility] Sodium [Moles/Vol] 139 mmol/L 136 - 145 mmol/L [facility] Urea nitrogen [Mass/Vol] 31 mg/dL High 8 - 23 mg/dL [facility] CBCon 11-02-2024 Erythrocyte distribution width (RBC) [Ratio] 23.0 % High 11.5 - 14.9 % [facility] Hematocrit (Bld) [Volume fraction] 35.8 % Low 41 - 53 % [facility] Hemoglobin (Bld) [Mass/Vol] 11.8 g/dL Low 13.5 - 17.5 g/dL [facility] Interpretation and review of laboratory results Abnormal [facility] MCH (RBC) [Entitic mass] 29.8 pg 26 - 34 pg [facility] MCHC (RBC) [Mass/Vol] 32.9 g/dL 31 - 37 g/dL [facility] MCV (RBC) [Entitic vol] 90.7 fL 80 - 100 fL [facility] Platelet mean volume (Bld) [Entitic vol] 8.4 fL 6.0 - 12.0 fL [facility] Platelets (Bld) [#/Vol] 111 10*3/uL Low [facility] RBC (Bld) [#/Vol] 3.95 10*6/uL Low 4.5 - 5.9 m/uL [facility] WBC other (Bld) [#/Vol] 3.7 [facility] Comprehensive Metabolic Pane aldo 11-02-2024 Albumin [Mass/Vol] 3.4 g/dL Low 3.5 - 5.2 g/dL [facility] ALP [Catalytic activity/Vol] 119 U/L 40 - 129 U/L [facility] ALT [Catalytic activity/Vol] 11 U/L 10 - 50 U/L [facility] Anion gap [Moles/Vol] 11 mmol/L 9 - 16 mmol/L [facility] AST [Catalytic activity/Vol] 28 U/L 10 - 50 U/L [facility] Bilirubin [Mass/Vol] 0.7 mg/dL 0.0 - 1.2 mg/dL [facility] Calcium [Mass/Vol] 8.8 mg/dL 8.6 - 10. 4 mg/dL [facility] Chloride [Moles/Vol] 103 mmol/L 98 - 107 mmol/L [facility] CO2 [Moles/Vol] 27 mmol/L 20 - 31 mmol/L [facility] Creatinine [Mass/Vol] 2.1 mg/dL High 0.7 - 1.2 mg/dL [facility] Est, Glom Filt Rate 31 Low - PINF [facility] Comment on above: These results are not intended for use in patients <18 years of age. eGFR results are calculated without a race factor using the 2020 CKD-EPI equation. Careful clinical correlation is recommended, particularly when comparing to results calculated using previous equations. The CKD-EPI equation is less accurate in patients with extremes of muscle mass, extra-renal metabolism of creatine, excessive creatine ingestion, or following therapy that affects renal tubular secretion. Glucose [Mass/Vol] 79 mg/dL 74 - 99 mg/dL [facility] Interpretation and review of laboratory results Abnormal [facility] Potassium [Moles/Vol] 3.8 mmol/L 3.7 - 5.3 mmol/L [facility] Protein [Mass/Vol] 6.3 g/dL Low 6.6 - 8.7 g/dL [facility] Sodium [Moles/Vol] 141 mmol/L 136 - 145 mmol/L [facility] Urea nitrogen [Mass/Vol] 31 mg/dL High 8 - 23 mg/dL [facility] Magnesiumon 11-02-2024 Magnesium [Mass/Vol] 2.0 mg/dL 1.6 - 2.4 mg/dL [facility] No Panel Informationon 11-02 [facility] Phosphoruson 11-02-2024 Phosphate [Mass/Vol] 2.8 mg/dL 2.5 - 4.5 mg/dL [facility] Comprehensive Metabolic Pane aldo 11-01-2024 Albumin [Mass/Vol] 3.3 g/dL Low 3.5 - 5.2 g/dL [facility] ALP [Catalytic activity/Vol] 109 U/L 40 - 129 U/L [facility] ALT [Catalytic activity/Vol] 12 U/L 10 - 50 U/L [facility] Anion gap [Moles/Vol] 10 mmol/L 9 - 16 mmol/L [facility] AST [Catalytic activity/Vol] 25 U/L 10 - 50 U/L [facility] Bilirubin [Mass/Vol] 0.7 mg/dL 0.0 - 1.2 mg/dL [facility] Calcium [Mass/Vol] 8.9 mg/dL 8.6 - 10. 4 mg/dL [facility] Chloride [Moles/Vol] 103 mmol/L 98 - 107 mmol/L [facility] CO2 [Moles/Vol] 27 mmol/L 20 - 31 mmol/L [facility] Creatinine [Mass/Vol] 2.1 mg/dL High 0.7 - 1.2 mg/dL [facility] Est, Glom Filt Rate 31 Low - PINF [facility] Comment on above: These results are not intended for use in patients <18 years of age. eGFR results are calculated without a race factor using the 2020 CKD-EPI equation. Careful clinical correlation is recommended, particularly when comparing to results calculated using previous equations. The CKD-EPI equation is less accurate in patients with extremes of muscle mass, extra-renal metabolism of creatine, excessive creatine ingestion, or following therapy that affects renal tubular secretion. Glucose [Mass/Vol] 80 mg/dL 74 - 99 mg/dL [facility] Interpretation and review of laboratory results Abnormal [facility] Potassium [Moles/Vol] 3.9 mmol/L 3.7 - 5.3 mmol/L [facility] Protein [Mass/Vol] 6.0 g/dL Low 6.6 - 8.7 g/dL [facility] Sodium [Moles/Vol] 140 mmol/L 136 - 145 mmol/L [facility] Urea nitrogen [Mass/Vol] 33 mg/dL High 8 - 23 mg/dL [facility] Comprehensive Metabolic Pane aldo 10-31-2024 Albumin [Mass/Vol] 3.0 g/dL Low 3.5 - 5.2 g/dL [facility] ALP [Catalytic activity/Vol] 110 U/L 40 - 129 U/L [facility] ALT [Catalytic activity/Vol] 11 U/L 10 - 50 U/L [facility] Anion gap [Moles/Vol] 11 mmol/L 9 - 16 mmol/L [facility] AST [Catalytic activity/Vol] 28 U/L 10 - 50 U/L [facility] Bilirubin [Mass/Vol] 0.7 mg/dL 0.0 - 1.2 mg/dL [facility] Calcium [Mass/Vol] 8.7 mg/dL 8.6 - 10. 4 mg/dL [facility] Chloride [Moles/Vol] 101 mmol/L 98 - 107 mmol/L [facility] CO2 [Moles/Vol] 25 mmol/L 20 - 31 mmol/L [facility] Creatinine [Mass/Vol] 2.2 mg/dL High 0.7 - 1.2 mg/dL [facility] Est, Glom Filt Rate 29 Low - PINF [facility] Comment on above: These results are not intended for use in patients <18 years of age. eGFR results are calculated without a race factor using the 2020 CKD-EPI equation. Careful clinical correlation is recommended, particularly when comparing to results calculated using previous equations. The CKD-EPI equation is less accurate in patients with extremes of muscle mass, extra-renal metabolism of creatine, excessive creatine ingestion, or following therapy that affects renal tubular secretion. Glucose [Mass/Vol] 114 mg/dL High 74 - 99 mg/dL [facility] Interpretation and review of laboratory results Abnormal [facility] Potassium [Moles/Vol] 4.0 mmol/L 3.7 - 5.3 mmol/L [facility] Comment on above: Specimen hemolysis h as exceeded the interference as defined by Karoline. Value may be falsely increased. Suggest recollection if clinically indicated. Protein [Mass/Vol] 5.8 g/dL Low 6.6 - 8.7 g/dL [facility] Sodium [Moles/Vol] 137 mmol/L 136 - 145 mmol/L [facility] Urea nitrogen [Mass/Vol] 35 mg/dL High 8 - 23 mg/dL [facility] Comprehensive Metabolic Pane aldo 10-30-2024 Albumin [Mass/Vol] 3.2 g/dL Low 3.5 - 5.2 g/dL [facility] ALP [Catalytic activity/Vol] 112 U/L 40 - 129 U/L [facility] ALT [Catalytic activity/Vol] 12 U/L 10 - 50 U/L [facility] Anion gap [Moles/Vol] 14 mmol/L 9 - 16 mmol/L [facility] AST [Catalytic activity/Vol] 25 U/L 10 - 50 U/L [facility] Bilirubin [Mass/Vol] 0.7 mg/dL 0.0 - 1.2 mg/dL [facility] Calcium [Mass/Vol] 8.7 mg/dL 8.6 - 10. 4 mg/dL [facility] Chloride [Moles/Vol] 102 mmol/L 98 - 107 mmol/L [facility] CO2 [Moles/Vol] 22 mmol/L 20 - 31 mmol/L [facility] Creatinine [Mass/Vol] 2.2 mg/dL High 0.7 - 1.2 mg/dL [facility] Est, Glom Filt Rate 29 Low - PINF [facility] Comment on above: These results are not intended for use in patients <18 years of age. eGFR results are calculated without a race factor using the 2020 CKD-EPI equation. Careful clinical correlation is recommended, particularly when comparing to results calculated using previous equations. The CKD-EPI equation is less accurate in patients with extremes of muscle mass, extra-renal metabolism of creatine, excessive creatine ingestion, or following therapy that affects renal tubular secretion. Glucose [Mass/Vol] 78 mg/dL 74 - 99 mg/dL [facility] Interpretation and review of laboratory results Abnormal [facility] Potassium [Moles/Vol] 4.0 mmol/L 3.7 - 5.3 mmol/L [facility] Comment on above: Specimen hemolysis h as exceeded the interference as defined by Karoline. Value may be falsely increased. Suggest recollection if clinically indicated. Protein [Mass/Vol] 5.8 g/dL Low 6.6 - 8.7 g/dL [facility] Sodium [Moles/Vol] 138 mmol/L 136 - 145 mmol/L [facility] Urea nitrogen [Mass/Vol] 36 mg/dL High 8 - 23 mg/dL [facility] US ABDOMEN LIMITEDon 025 US ABDOMEN LIMITED EXAMINATION: LIMITED ABDOMINAL ULTRASOUND 10/30/2024 1:28 pm COMPARISON: 10/21/2024 HISTORY: ORDERING SYSTEM PROVIDED HISTORY: ascites TECHNOLOGIST PROVIDED HISTORY: Reason for Exam:->rule out ascites Height:182.9cm Weight:77.111kg ascites FINDINGS: A limited scan of the four quadrants of the abdomen was performed to evaluate for ascites. There is a [id number] amount of abdominal ascites. IMPRESSION: Mild to moderate intra-abdominal ascites. Interpreted by: Lewis Suazo MD Signed by: Lewis Suazo MD 10/30/24 Final result Normal [facility] Mild to moderate intra-abdominal ascites. [facility] RIS CONSOLIDATED EXAMINATION: LIMITED ABDOMINAL ULTRASOUND 10/30/2024 1:28 pm COMPARISON: 10/21/2024 HISTORY: ORDERING SYSTEM PROVIDED HISTORY: ascites TECHNOLOGIST PROVIDED HISTORY: Reason for Exam:->rule out ascites Height:182.9cm Weight:77.111kg ascites FINDINGS: A limited scan of the four quadrants of the abdomen was performed to evaluate for ascites. There is a [id number] amount of abdominal ascites. [facility] RIS CONSOLIDATED Lewis Suazo MD - 10/30/2024 EXAMINATION: LIMITED ABDOMINAL ULTRASOUND 10/30/2024 1:28 pm COMPARISON: 10/21/2024 HISTORY: ORDERING SYSTEM PROVIDED HISTORY: ascites TECHNOLOGIST PROVIDED HISTORY: Reason for Exam:->rule out ascites Height:182.9cm Weight:77.111kg ascites FINDINGS: A limited scan of the four quadrants of the abdomen was performed to evaluate for ascites. There is a [id number] amount of abdominal ascites. IMPRESSION: Mild to moderate intra-abdominal ascites. [facility] Radiology Study observation (narrative) [facility] US Abdomen limitedOrdered By : Lewis Suazo on 10-30-2024 [facility] Work Phone: Comprehensive Metabolic Pane aldo 10-29-2024 Albumin [Mass/Vol] 3.4 g/dL Low 3.5 - 5.2 g/dL [facility] ALP [Catalytic activity/Vol] 121 U/L 40 - 129 U/L [facility] ALT [Catalytic activity/Vol] 14 U/L 10 - 50 U/L [facility] Anion gap [Moles/Vol] 12 mmol/L 9 - 16 mmol/L [facility] AST [Catalytic activity/Vol] 27 U/L 10 - 50 U/L [facility] Bilirubin [Mass/Vol] 0.8 mg/dL 0.0 - 1.2 mg/dL [facility] Calcium [Mass/Vol] 8.8 mg/dL 8.6 - 10. 4 mg/dL [facility] Chloride [Moles/Vol] 101 mmol/L 98 - 107 mmol/L [facility] CO2 [Moles/Vol] 26 mmol/L 20 - 31 mmol/L [facility] Creatinine [Mass/Vol] 2.2 mg/dL High 0.7 - 1.2 mg/dL [facility] Est, Glom Filt Rate 29 Low - PINF [facility] Comment on above: These results are not intended for use in patients <18 years of age. eGFR results are calculated without a race factor using the 2020 CKD-EPI equation. Careful clinical correlation is recommended, particularly when comparing to results calculated using previous equations. The CKD-EPI equation is less accurate in patients with extremes of muscle mass, extra-renal metabolism of creatine, excessive creatine ingestion, or following therapy that affects renal tubular secretion. Glucose [Mass/Vol] 78 mg/dL 74 - 99 mg/dL [facility] Interpretation and review of laboratory results Abnormal [facility] Potassium [Moles/Vol] 3.9 mmol/L 3.7 - 5.3 mmol/L [facility] Protein [Mass/Vol] 6.3 g/dL Low 6.6 - 8.7 g/dL [facility] Sodium [Moles/Vol] 139 mmol/L 136 - 145 mmol/L [facility] Urea nitrogen [Mass/Vol] 36 mg/dL High 8 - 23 mg/dL [facility] Telephoneon 10-29-2024 Telephone Normal [facility] Comprehensive Metabolic Pane aldo 10-28-2024 Albumin [Mass/Vol] 3.5 g/dL 3.5 - 5.2 g/dL [facility] ALP [Catalytic activity/Vol] 125 U/L 40 - 129 U/L [facility] ALT [Catalytic activity/Vol] 17 U/L 10 - 50 U/L [facility] Anion gap [Moles/Vol] 10 mmol/L 9 - 16 mmol/L [facility] AST [Catalytic activity/Vol] 26 U/L 10 - 50 U/L [facility] Bilirubin [Mass/Vol] 0.7 mg/dL 0.0 - 1.2 mg/dL [facility] Calcium [Mass/Vol] 8.9 mg/dL 8.6 - 10. 4 mg/dL [facility] Chloride [Moles/Vol] 101 mmol/L 98 - 107 mmol/L [facility] CO2 [Moles/Vol] 27 mmol/L 20 - 31 mmol/L [facility] Creatinine [Mass/Vol] 2.3 mg/dL High 0.7 - 1.2 mg/dL [facility] Est, Glom Filt Rate 28 Low - PINF [facility] Comment on above: These results are not intended for use in patients <18 years of age. eGFR results are calculated without a race factor using the 2020 CKD-EPI equation. Careful clinical correlation is recommended, particularly when comparing to results calculated using previous equations. The CKD-EPI equation is less accurate in patients with extremes of muscle mass, extra-renal metabolism of creatine, excessive creatine ingestion, or following therapy that affects renal tubular secretion. Glucose [Mass/Vol] 87 mg/dL 74 - 99 mg/dL [facility] Interpretation and review of laboratory results Abnormal [facility] Potassium [Moles/Vol] 3.7 mmol/L 3.7 - 5.3 mmol/L [facility] Protein [Mass/Vol] 6.3 g/dL Low 6.6 - 8.7 g/dL [facility] Sodium [Moles/Vol] 138 mmol/L 136 - 145 mmol/L [facility] Urea nitrogen [Mass/Vol] 36 mg/dL High 8 - 23 mg/dL [facility] CBC with Auto Differentialon 10-27-2024 Basophils (Bld) [#/Vol] 0.04 10*3/uL [facility] Basophils/100 WBC (Bld) 1 % 0 - 2 % [facility] Eosinophils (Bld) [#/Vol] 0.15 10*3/uL [facility] Eosinophils/100 WBC (Bld) 4 % 0 - 4 % [facility] Erythrocyte distribution width (RBC) [Ratio] 24.2 % High 11.5 - 14.9 % [facility] Hematocrit (Bld) [Volume fraction] 35.2 % Low 41 - 53 % [facility] Hemoglobin (Bld) [Mass/Vol] 11.2 g/dL Low 13.5 - 17.5 g/dL [facility] Interpretation and review of laboratory results Abnormal [facility] Lymphocytes/100 WBC (Bld) 20 % Low 24 - 44 % [facility] Lymphocytes/100 WBC (Bld) 0.74 % Low [facility] MCH (RBC) [Entitic mass] 29.0 pg 26 - 34 pg [facility] MCHC (RBC) [Mass/Vol] 31.8 g/dL 31 - 37 g/dL [facility] MCV (RBC) [Entitic vol] 91.2 fL 80 - 100 fL [facility] Monocytes/100 WBC (Bld) 14 % High 1 - 7 % [facility] Monocytes/100 WBC (Bld) 0.52 % [facility] Morphology Chance (Bld) [Interp] ANISOCYTOSIS PRESENT [facility] Morphology Chance (Bld) [Interp] ACANTHOCYTES 1+ MICROCYTOSIS PRESENT [facility] Neutrophils/100 WBC (Bld) 61 % 36 - 66 % [facility] Platelet mean volume (Bld) [Entitic vol] 8.4 fL 6.0 - 12.0 fL [facility] Platelets (Bld) [#/Vol] 146 10*3/uL Low [facility] RBC (Bld) [#/Vol] 3.86 10*6/uL Low 4.5 - 5.9 m/uL [facility] Segmented neutrophils/100 WBC (Bld) 2.25 % [facility] WBC other (Bld) [#/Vol] 3.7 [facility] Comprehensive Metabolic Pane aldo 10-27-2024 Albumin [Mass/Vol] 3.7 g/dL 3.5 - 5.2 g/dL [facility] ALP [Catalytic activity/Vol] 117 U/L 40 - 129 U/L [facility] ALT [Catalytic activity/Vol] 19 U/L 10 - 50 U/L [facility] Anion gap [Moles/Vol] 11 mmol/L 9 - 16 mmol/L [facility] AST [Catalytic activity/Vol] 26 U/L 10 - 50 U/L [facility] Bilirubin [Mass/Vol] 0.8 mg/dL 0.0 - 1.2 mg/dL [facility] Calcium [Mass/Vol] 8.7 mg/dL 8.6 - 10. 4 mg/dL [facility] Chloride [Moles/Vol] 101 mmol/L 98 - 107 mmol/L [facility] CO2 [Moles/Vol] 27 mmol/L 20 - 31 mmol/L [facility] Creatinine [Mass/Vol] 2.3 mg/dL High 0.7 - 1.2 mg/dL [facility] Est, Glom Filt Rate 28 Low - PINF [facility] Comment on above: These results are not intended for use in patients <18 years of age. eGFR results are calculated without a race factor using the 2020 CKD-EPI equation. Careful clinical correlation is recommended, particularly when comparing to results calculated using previous equations. The CKD-EPI equation is less accurate in patients with extremes of muscle mass, extra-renal metabolism of creatine, excessive creatine ingestion, or following therapy that affects renal tubular secretion. Glucose [Mass/Vol] 85 mg/dL 74 - 99 mg/dL [facility] Interpretation and review of laboratory results Abnormal [facility] Potassium [Moles/Vol] 4.0 mmol/L 3.7 - 5.3 mmol/L [facility] Protein [Mass/Vol] 6.5 g/dL Low 6.6 - 8.7 g/dL [facility] Sodium [Moles/Vol] 139 mmol/L 136 - 145 mmol/L [facility] Urea nitrogen [Mass/Vol] 33 mg/dL High 8 - 23 mg/dL [facility] Albumin [Mass/Vol] 3.6 g/dL 3.5 - 5.2 g/dL [facility] ALP [Catalytic activity/Vol] 124 U/L 40 - 129 U/L [facility] ALT [Catalytic activity/Vol] 21 U/L 10 - 50 U/L [facility] Anion gap [Moles/Vol] 11 mmol/L 9 - 16 mmol/L [facility] AST [Catalytic activity/Vol] 26 U/L 10 - 50 U/L [facility] Bilirubin [Mass/Vol] 0.8 mg/dL 0.0 - 1.2 mg/dL [facility] Calcium [Mass/Vol] 9.2 mg/dL 8.6 - 10. 4 mg/dL [facility] Chloride [Moles/Vol] 102 mmol/L 98 - 107 mmol/L [facility] CO2 [Moles/Vol] 29 mmol/L 20 - 31 mmol/L [facility] Creatinine [Mass/Vol] 2.4 mg/dL High 0.7 - 1.2 mg/dL [facility] Est, Glom Filt Rate 26 Low - PINF [facility] Comment on above: These results are not intended for use in patients <18 years of age. eGFR results are calculated without a race factor using the 2020 CKD-EPI equation. Careful clinical correlation is recommended, particularly when comparing to results calculated using previous equations. The CKD-EPI equation is less accurate in patients with extremes of muscle mass, extra-renal metabolism of creatine, excessive creatine ingestion, or following therapy that affects renal tubular secretion. Glucose [Mass/Vol] 84 mg/dL 74 - 99 mg/dL [facility] Interpretation and review of laboratory results Abnormal [facility] Potassium [Moles/Vol] 3.9 mmol/L 3.7 - 5.3 mmol/L [facility] Protein [Mass/Vol] 6.4 g/dL Low 6.6 - 8.7 g/dL [facility] Sodium [Moles/Vol] 142 mmol/L 136 - 145 mmol/L [facility] Urea nitrogen [Mass/Vol] 33 mg/dL High 8 - 23 mg/dL [facility] Magnesiumon 10-27-2024 Magnesium [Mass/Vol] 2.3 mg/dL 1.6 - 2.4 mg/dL [facility] No Panel Informationon 10-27 [facility] Phosphoruson 10-27-2024 Phosphate [Mass/Vol] 3.0 mg/dL 2.5 - 4.5 mg/dL [facility] Portable XR Chest AP single viewon 10-26-2024 Stable size of a sma ll to moderate left pleural effusion with associated atelectasis. [facility] RIS CONSOLIDATED EXAMINATION: ONE XRAY VIEW OF THE CHEST 10/26/2024 9:06 am COMPARISON: Chest x-ray dated October 24, 2024 HISTORY: ORDERING SYSTEM PROVIDED HISTORY: Monitor the left pleural effusion, extra Bumex dose given TECHNOLOGIST PROVIDED HISTORY: Reason for Exam:->Monitor the left pleural effusion, extra Bumex dose given Portable?->Yes Height:182.9cm Weight:78.926kg Reason for Exam: Monitor left pleural effusion FINDINGS: Stable cardiomegaly. Stable small to moderate left pleural effusion. No pneumothorax. 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 PN RIS CONSOLIDATED Raymond Minaya M D - 10/26/2024 EXAMINATION: ONE XRAY VIEW OF THE CHEST 10/26/2024 9:06 am COMPARISON: Chest x-ray dated October 24, 2024 HISTORY: ORDERING SYSTEM PROVIDED HISTORY: Monitor the left pleural effusion, extra Bumex dose given TECHNOLOGIST PROVIDED HISTORY: Reason for Exam:->Monitor the left pleural effusion, extra Bumex dose given Portable?->Yes Height:182.9cm Weight:78.926kg Reason for Exam: Monitor left pleural effusion FINDINGS: Stable cardiomegaly. Stable small to moderate left pleural effusion. No pneumothorax. 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 IMPRESSION: Stable size of a small to moderate left pleural effusion with associated atelectasis. [facility] Radiology Study observation (narrative) [facility] Portable XR Chest AP single viewOrdered By: Raymond Minaya on 10-26-2024 [facility] Work Phone: XR CHEST PORTABLEon 10-26-19 XR CHEST PORTABLE EXAMINATION: ONE XRAY VIEW OF THE CHEST 10/26/2024 9:06 am COMPARISON: Chest x-ray dated October 24, 2024 HISTORY: ORDERING SYSTEM PROVIDED HISTORY: Monitor the left pleural effusion, extra Bumex dose given TECHNOLOGIST PROVIDED HISTORY: Reason for Exam:->Monitor the left pleural effusion, extra Bumex dose given Portable?->Yes Height:182.9cm Weight:78.926kg Reason for Exam: Monitor left pleural effusion FINDINGS: Stable cardiomegaly. Stable small to moderate left pleural effusion. No pneumothorax. 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 IMPRESSION: Stable size of a small to moderate left pleural effusion with associated atelectasis. Interpreted by: Raymond Minaya MD Signed by: Raymond Minaya MD 10/26/24 Final result Normal [facility] Comprehensive Metabolic Pane aldo 10-25-2024 Albumin [Mass/Vol] 3.6 g/dL 3.5 - 5.2 g/dL [facility] ALP [Catalytic activity/Vol] 121 U/L 40 - 129 U/L [facility] ALT [Catalytic activity/Vol] 21 U/L 10 - 50 U/L [facility] Anion gap [Moles/Vol] 12 mmol/L 9 - 16 mmol/L [facility] AST [Catalytic activity/Vol] 29 U/L 10 - 50 U/L [facility] Bilirubin [Mass/Vol] 0.9 mg/dL 0.0 - 1.2 mg/dL [facility] Calcium [Mass/Vol] 9.3 mg/dL 8.6 - 10. 4 mg/dL [facility] Chloride [Moles/Vol] 101 mmol/L 98 - 107 mmol/L [facility] CO2 [Moles/Vol] 24 mmol/L 20 - 31 mmol/L [facility] Creatinine [Mass/Vol] 2.2 mg/dL High 0.7 - 1.2 mg/dL [facility] Est, Glom Filt Rate 29 Low - PINF [facility] Comment on above: These results are not intended for use in patients <18 years of age. eGFR results are calculated without a race factor using the 2020 CKD-EPI equation. Careful clinical correlation is recommended, particularly when comparing to results calculated using previous equations. The CKD-EPI equation is less accurate in patients with extremes of muscle mass, extra-renal metabolism of creatine, excessive creatine ingestion, or following therapy that affects renal tubular secretion. Glucose [Mass/Vol] 92 mg/dL 74 - 99 mg/dL [facility] Potassium [Moles/Vol] 4.7 mmol/L 3.7 - 5.3 mmol/L [facility] Comment on above: Specimen hemolysis h as exceeded the interference as defined by Karoline. Value may be falsely increased. Suggest recollection if clinically indicated. Protein [Mass/Vol] 6.5 g/dL Low 6.6 - 8.7 g/dL [facility] Sodium [Moles/Vol] 137 mmol/L 136 - 145 mmol/L [facility] Urea nitrogen [Mass/Vol] 33 mg/dL High 8 - 23 mg/dL [facility] Magnesiumon 10-25-2024 Magnesium [Mass/Vol] 2.5 mg/dL High 1.6 - 2.4 mg/dL [facility] No Panel Informationon 10-25 Interpretation and review of laboratory results Abnormal [facility] Comprehensive Metabolic Pane aldo 10-24-2024 Albumin [Mass/Vol] 3.6 g/dL 3.5 - 5.2 g/dL [facility] ALP [Catalytic activity/Vol] 123 U/L 40 - 129 U/L [facility] ALT [Catalytic activity/Vol] 25 U/L 10 - 50 U/L [facility] Anion gap [Moles/Vol] 12 mmol/L 9 - 16 mmol/L [facility] AST [Catalytic activity/Vol] 24 U/L 10 - 50 U/L [facility] Bilirubin [Mass/Vol] 0.7 mg/dL 0.0 - 1.2 mg/dL [facility] Calcium [Mass/Vol] 9.0 mg/dL 8.6 - 10. 4 mg/dL [facility] Chloride [Moles/Vol] 99 mmol/L 98 - 107 mmol/L [facility] CO2 [Moles/Vol] 29 mmol/L 20 - 31 mmol/L [facility] Creatinine [Mass/Vol] 2.2 mg/dL High 0.7 - 1.2 mg/dL [facility] Est, Glom Filt Rate 29 Low - PINF [facility] Comment on above: These results are not intended for use in patients <18 years of age. eGFR results are calculated without a race factor using the 2020 CKD-EPI equation. Careful clinical correlation is recommended, particularly when comparing to results calculated using previous equations. The CKD-EPI equation is less accurate in patients with extremes of muscle mass, extra-renal metabolism of creatine, excessive creatine ingestion, or following therapy that affects renal tubular secretion. Glucose [Mass/Vol] 81 mg/dL 74 - 99 mg/dL [facility] Interpretation and review of laboratory results Abnormal [facility] Potassium [Moles/Vol] 3.6 mmol/L Low 3.7 - 5.3 mmol/L [facility] Protein [Mass/Vol] 6.3 g/dL Low 6.6 - 8.7 g/dL [facility] Sodium [Moles/Vol] 140 mmol/L 136 - 145 mmol/L [facility] Urea nitrogen [Mass/Vol] 34 mg/dL High 8 - 23 mg/dL [facility] Portable XR Chest AP single viewon 10-24-2024 No significant inter verenice change in left pleural effusion. [facility]IS CONSOLIDATED EXAMINATION: ONE XRAY VIEW OF THE CHEST 10/24/2024 3:25 pm COMPARISON: 10/23/2024 HISTORY: ORDERING SYSTEM PROVIDED HISTORY: follow up effusion improvement vs worsening. TECHNOLOGIST PROVIDED HISTORY: Reason for Exam:->follow up effusion improvement vs worsening. Portable?->Yes Height:182.9cm Weight:78.019kg Reason for Exam: F/U effusion improvement vs worsening FINDINGS: Status post median sternotomy. Cardiac AICD is stable in positioning. No significant interval change in moderate left pleural effusion. The right lung is grossly clear. No pneumothorax. Stable cardiac silhouette. Osseous structures are stable. [facility] CONSOLID[facility] Mary Kim MD - 10/24/2024 EXAMINATION: ONE XRAY VIEW OF THE CHEST 10/24/2024 3:25 pm COMPARISON: 10/23/2024 HISTORY: ORDERING SYSTEM PROVIDED HISTORY: follow up effusion improvement vs worsening. TECHNOLOGIST PROVIDED HISTORY: Reason for Exam:->follow up effusion improvement vs worsening. Portable?->Yes Height:182.9cm Weight:78.019kg Reason for Exam: F/U effusion improvement vs worsening FINDINGS: Status post median sternotomy. Cardiac AICD is stable in positioning. No significant interval change in moderate left pleural effusion. The right lung is grossly clear. No pneumothorax. Stable cardiac silhouette. Osseous structures are stable. IMPRESSION: No significant interval change in left pleural effusion. [facility] Radiology Study observation (narrative) [facility] Portable XR Chest AP single viewOrdered By: Mary Kim on 10-24-2024 [facility] Work Phone: XR CHEST PORTABLEon 10-24-19 XR CHEST PORTABLE EXAMINATION: ONE XRAY VIEW OF THE CHEST 10/24/2024 3:25 pm COMPARISON: 10/23/2024 HISTORY: ORDERING SYSTEM PROVIDED HISTORY: follow up effusion improvement vs worsening. TECHNOLOGIST PROVIDED HISTORY: Reason for Exam:->follow up effusion improvement vs worsening. Portable?->Yes Height:182.9cm Weight:78.019kg Reason for Exam: F/U effusion improvement vs worsening FINDINGS: Status post median sternotomy. Cardiac AICD is stable in positioning. No significant interval change in moderate left pleural effusion. The right lung is grossly clear. No pneumothorax. Stable cardiac silhouette. Osseous structures are stable. IMPRESSION: No significant interval change in left pleural effusion. Interpreted by: Mary Kim MD Signed by: Mary Kim MD 10/24/24 Final result Normal [facility] Comprehensive Metabolic Pane aldo 10-23-2024 Albumin [Mass/Vol] 3.6 g/dL 3.5 - 5.2 g/dL [facility] ALP [Catalytic activity/Vol] 124 U/L 40 - 129 U/L [facility] ALT [Catalytic activity/Vol] 24 U/L 10 - 50 U/L [facility] Anion gap [Moles/Vol] 8 mmol/L Low 9 - 16 mmol/L [facility] AST [Catalytic activity/Vol] 24 U/L 10 - 50 U/L [facility] Bilirubin [Mass/Vol] 0.8 mg/dL 0.0 - 1.2 mg/dL [facility] Calcium [Mass/Vol] 9.0 mg/dL 8.6 - 10. 4 mg/dL [facility] Chloride [Moles/Vol] 102 mmol/L 98 - 107 mmol/L [facility] CO2 [Moles/Vol] 30 mmol/L 20 - 31 mmol/L [facility] Creatinine [Mass/Vol] 2.2 mg/dL High 0.7 - 1.2 mg/dL [facility] Est, Glom Filt Rate 29 Low - PINF [facility] Comment on above: These results are not intended for use in patients <18 years of age. eGFR results are calculated without a race factor using the 2020 CKD-EPI equation. Careful clinical correlation is recommended, particularly when comparing to results calculated using previous equations. The CKD-EPI equation is less accurate in patients with extremes of muscle mass, extra-renal metabolism of creatine, excessive creatine ingestion, or following therapy that affects renal tubular secretion. Glucose [Mass/Vol] 94 mg/dL 74 - 99 mg/dL [facility] Interpretation and review of laboratory results Abnormal [facility] Potassium [Moles/Vol] 3.9 mmol/L 3.7 - 5.3 mmol/L [facility] Protein [Mass/Vol] 6.7 g/dL 6.6 - 8.7 g/dL [facility] Sodium [Moles/Vol] 140 mmol/L 136 - 145 mmol/L [facility] Urea nitrogen [Mass/Vol] 34 mg/dL High 8 - 23 mg/dL [facility] XR CHEST 1 VIEWon 10-23-2024 XR CHEST 1 VIEW EXAMINATION: ONE XRAY VIEW OF THE CHEST 10/23/2024 8:18 pm COMPARISON: None. HISTORY: ORDERING SYSTEM PROVIDED HISTORY: evaluate fluid status TECHNOLOGIST PROVIDED HISTORY: Reason for Exam:->evaluate fluid status Portable?->Yes Height:182.9cm Weight:78.019kg Reason for Exam: Eval fluid status FINDINGS: Moderate left effusion and left lower lobe atelectatic and/or consolidative changes. Cardiomegaly and postthoracotomy changes. Stable pacemaker. Perihilar congestion. The right lung is clear. IMPRESSION: 1. Moderate left effusion and left lower lobe atelectatic and/or consolidative changes. 2. Cardiomegaly and perihilar congestion. Interpreted by: Lauren Felder MD Signed by: Lauren Felder MD 10/23/24 Final result Normal [facility] XR Chest Single viewon 10-23 1. Moderate left eff usion and left lower lobe atelectatic and/or consolidative changes. 2. Cardiomegaly and perihilar congestion. [facility] RIS CONSOLIDATED EXAMINATION: ONE XRAY VIEW OF THE CHEST 10/23/2024 8:18 pm COMPARISON: None. HISTORY: ORDERING SYSTEM PROVIDED HISTORY: evaluate fluid status TECHNOLOGIST PROVIDED HISTORY: Reason for Exam:->evaluate fluid status Portable?->Yes Height:182.9cm Weight:78.019kg Reason for Exam: Eval fluid status FINDINGS: Moderate left effusion and left lower lobe atelectatic and/or consolidative changes. Cardiomegaly and postthoracotomy changes. Stable pacemaker. Perihilar congestion. The right lung is clear. [facility] CONSOLIDATED Lauren Felder MD - 10/23/2024 EXAMINATION: ONE XRAY VIEW OF THE CHEST 10/23/2024 8:18 pm COMPARISON: None. HISTORY: ORDERING SYSTEM PROVIDED HISTORY: evaluate fluid status TECHNOLOGIST PROVIDED HISTORY: Reason for Exam:->evaluate fluid status Portable?->Yes Height:182.9cm Weight:78.019kg Reason for Exam: Eval fluid status FINDINGS: Moderate left effusion and left lower lobe atelectatic and/or consolidative changes. Cardiomegaly and postthoracotomy changes. Stable pacemaker. Perihilar congestion. The right lung is clear. IMPRESSION: 1. Moderate left effusion and left lower lobe atelectatic and/or consolidative changes. 2. Cardiomegaly and perihilar congestion. [facility] Radiology Study observation (narrative) [facility] XR Chest Single viewOrdered By: Lauren Felder on 10-23-2024 [facility] Work Phone: Comprehensive Metabolic Pane aldo 10-22-2024 Albumin [Mass/Vol] 3.7 g/dL 3.5 - 5.2 g/dL [facility] ALP [Catalytic activity/Vol] 135 U/L High 40 - 129 U/L [facility] ALT [Catalytic activity/Vol] 33 U/L 10 - 50 U/L [facility] Anion gap [Moles/Vol] 10 mmol/L 9 - 16 mmol/L [facility] AST [Catalytic activity/Vol] 32 U/L 10 - 50 U/L [facility] Bilirubin [Mass/Vol] 0.8 mg/dL 0.0 - 1.2 mg/dL [facility] Calcium [Mass/Vol] 9.0 mg/dL 8.6 - 10. 4 mg/dL [facility] Chloride [Moles/Vol] 102 mmol/L 98 - 107 mmol/L [facility] CO2 [Moles/Vol] 29 mmol/L 20 - 31 mmol/L [facility] Creatinine [Mass/Vol] 2.1 mg/dL High 0.7 - 1.2 mg/dL [facility] Est, Glom Filt Rate 31 Low - PINF [facility] Comment on above: These results are not intended for use in patients <18 years of age. eGFR results are calculated without a race factor using the 2020 CKD-EPI equation. Careful clinical correlation is recommended, particularly when comparing to results calculated using previous equations. The CKD-EPI equation is less accurate in patients with extremes of muscle mass, extra-renal metabolism of creatine, excessive creatine ingestion, or following therapy that affects renal tubular secretion. Glucose [Mass/Vol] 84 mg/dL 74 - 99 mg/dL [facility] Interpretation and review of laboratory results Abnormal [facility] Potassium [Moles/Vol] 3.7 mmol/L 3.7 - 5.3 mmol/L [facility] Protein [Mass/Vol] 6.5 g/dL Low 6.6 - 8.7 g/dL [facility] Sodium [Moles/Vol] 141 mmol/L 136 - 145 mmol/L [facility] Urea nitrogen [Mass/Vol] 35 mg/dL High 8 - 23 mg/dL [facility] Comprehensive Metabolic Pane aldo 10-21-2024 Albumin [Mass/Vol] 3.6 g/dL 3.5 - 5.2 g/dL [facility] ALP [Catalytic activity/Vol] 124 U/L 40 - 129 U/L [facility] ALT [Catalytic activity/Vol] 31 U/L 10 - 50 U/L [facility] Anion gap [Moles/Vol] 12 mmol/L 9 - 16 mmol/L [facility] AST [Catalytic activity/Vol] 29 U/L 10 - 50 U/L [facility] Bilirubin [Mass/Vol] 0.8 mg/dL 0.0 - 1.2 mg/dL [facility] Calcium [Mass/Vol] 8.9 mg/dL 8.6 - 10. 4 mg/dL [facility] Chloride [Moles/Vol] 101 mmol/L 98 - 107 mmol/L [facility] CO2 [Moles/Vol] 25 mmol/L 20 - 31 mmol/L [facility] Creatinine [Mass/Vol] 2.1 mg/dL High 0.7 - 1.2 mg/dL [facility] Est, Glom Filt Rate 31 Low - PINF [facility] Comment on above: These results are not intended for use in patients <18 years of age. eGFR results are calculated without a race factor using the 2020 CKD-EPI equation. Careful clinical correlation is recommended, particularly when comparing to results calculated using previous equations. The CKD-EPI equation is less accurate in patients with extremes of muscle mass, extra-renal metabolism of creatine, excessive creatine ingestion, or following therapy that affects renal tubular secretion. Glucose [Mass/Vol] 91 mg/dL 74 - 99 mg/[facility] Interpretation and review of laboratory results Abnormal [facility] Potassium [Moles/Vol] 4.1 mmol/L 3.7 - 5.3 mmol/L [facility] Comment on above: Specimen hemolysis h as exceeded the interference as defined by Karoline. Value may be falsely increased. Suggest recollection if clinically indicated. Protein [Mass/Vol] 6.4 g/dL Low 6.6 - 8.7 g/dL [facility] Sodium [Moles/Vol] 138 mmol/L 136 - 145 mmol/L [facility] Urea nitrogen [Mass/Vol] 37 mg/dL High 8 - 23 mg/dL [facility] US ABDOMEN LIMITEDon 025 US ABDOMEN LIMITED EXAMINATION: Limited abdominal [facility]AS[facility] 10/21/2024 5:47 pm COMPARISON: None. HISTORY: ORDERING SYSTEM PROVIDED HISTORY: evaluate for ascites TECHNOLOGIST PROVIDED HISTORY: Reason for Exam:->Abdomen distended, weight gain. please evaluate for abdominal ascites, if significant we may need to get paracentesis. Height:182.9cm Weight:78.926kg evaluate for ascites FINDINGS: Free fluid in all 4 quadrants, small volume and greatest in the bilateral upper quadrants. IMPRESSION: Small volume ascites. Interpreted by: Theo Latif DO Signed by: Theo Latif DO 10/21/24 Final result Normal [facility] US Abdomen limitedon 025 Small volume ascites . [facility] RIS CONSOLIDATED EXAMINATION: Limited abdominal [facility] ULTRASOUND 10/21/2024 5:47 pm COMPARISON: None. HISTORY: ORDERING SYSTEM PROVIDED HISTORY: evaluate for ascites TECHNOLOGIST PROVIDED HISTORY: Reason for Exam:->Abdomen distended, weight gain. please evaluate for abdominal ascites, if significant we may need to get paracentesis. Height:182.9cm Weight:78.926kg evaluate for ascites FINDINGS: Free fluid in all 4 quadrants, small volume and greatest in the bilateral upper quadrants. [facility] RIS CONSOLIDATED Theo Latif DO - 10/21/2024 EXAMINATION: Limited abdominal QU[facility]RANT ULTRASOUND 10/21/2024 5:47 pm COMPARISON: None. HISTORY: ORDERING SYSTEM PROVIDED HISTORY: evaluate for ascites TECHNOLOGIST PROVIDED HISTORY: Reason for Exam:->Abdomen distended, weight gain. please evaluate for abdominal ascites, if significant we may need to get paracentesis. Height:182.9cm Weight:78.926kg evaluate for ascites FINDINGS: Free fluid in all 4 quadrants, small volume and greatest in the bilateral upper quadrants. IMPRESSION: Small volume ascites. [facility] Radiology Study observation (narrative) [facility] US Abdomen limitedOrdered By : Theo Latif on 10-21-2024 [facility] Work Phone: Comprehensive Metabolic Pane aldo 10-20-2024 Albumin [Mass/Vol] 3.5 g/dL 3.5 - 5.2 g/dL [facility] ALP [Catalytic activity/Vol] 115 U/L 40 - 129 U/L [facility] ALT [Catalytic activity/Vol] 34 U/L 10 - 50 U/L [facility] Anion gap [Moles/Vol] 11 mmol/L 9 - 16 mmol/L [facility] AST [Catalytic activity/Vol] 27 U/L 10 - 50 U/L [facility] Bilirubin [Mass/Vol] 0.7 mg/dL 0.0 - 1.2 mg/dL [facility] Calcium [Mass/Vol] 9.1 mg/dL 8.6 - 10. 4 mg/dL [facility] Chloride [Moles/Vol] 100 mmol/L 98 - 107 mmol/L [facility] CO2 [Moles/Vol] 27 mmol/L 20 - 31 mmol/L [facility] Creatinine [Mass/Vol] 2.1 mg/dL High 0.7 - 1.2 mg/dL [facility] Est, Glom Filt Rate 31 Low - PINF [facility] Comment on above: These results are not intended for use in patients <18 years of age. eGFR results are calculated without a race factor using the 2020 CKD-EPI equation. Careful clinical correlation is recommended, particularly when comparing to results calculated using previous equations. The CKD-EPI equation is less accurate in patients with extremes of muscle mass, extra-renal metabolism of creatine, excessive creatine ingestion, or following therapy that affects renal tubular secretion. Glucose [Mass/Vol] 91 mg/dL 74 - 99 mg/dL [facility] Interpretation and review of laboratory results Abnormal [facility] Potassium [Moles/Vol] 4.2 mmol/L 3.7 - 5.3 mmol/L [facility] Protein [Mass/Vol] 6.4 g/dL Low 6.6 - 8.7 g/dL [facility] Sodium [Moles/Vol] 138 mmol/L 136 - 145 mmol/L [facility] Urea nitrogen [Mass/Vol] 36 mg/dL High 8 - 23 mg/dL [facility]Con 10-19-2024 Erythrocyte distribution width (RBC) [Ratio] 25.1 % High 11.5 - 14.9 % [facility] Hematocrit (Bld) [Volume fraction] 32.8 % Low 41 - 53 % [facility] Hemoglobin (Bld) [Mass/Vol] 10.4 g/dL Low 13.5 - 17.5 g/dL [facility] Interpretation and review of laboratory results Abnormal [facility] MCH (RBC) [Entitic mass] 28.9 pg 26 - 34 pg [facility] MCHC (RBC) [Mass/Vol] 31.8 g/dL 31 - 37 g/dL [facility] MCV (RBC) [Entitic vol] 90.8 fL 80 - 100 fL [facility] Platelet mean volume (Bld) [Entitic vol] 8.4 fL 6.0 - 12.0 fL [facility] Platelets (Bld) [#/Vol] 163 10*3/uL [facility] RBC (Bld) [#/Vol] 3.61 10*6/uL Low 4.5 - 5.9 m/uL [facility] WBC other (Bld) [#/Vol] 3.8 [facility] Comprehensive Metabolic Pane aldo 10-19-2024 Albumin [Mass/Vol] 3.5 g/dL 3.5 - 5.2 g/dL [facility] ALP [Catalytic activity/Vol] 119 U/L 40 - 129 U/L [facility] ALT [Catalytic activity/Vol] 37 U/L 10 - 50 U/L [facility] Anion gap [Moles/Vol] 11 mmol/L 9 - 16 mmol/L [facility] AST [Catalytic activity/Vol] 27 U/L 10 - 50 U/L [facility] Bilirubin [Mass/Vol] 0.8 mg/dL 0.0 - 1.2 mg/dL [facility] Calcium [Mass/Vol] 8.9 mg/dL 8.6 - 10. 4 mg/dL [facility] Chloride [Moles/Vol] 100 mmol/L 98 - 107 mmol/L [facility] CO2 [Moles/Vol] 25 mmol/L 20 - 31 mmol/L [facility] Creatinine [Mass/Vol] 2.1 mg/dL High 0.7 - 1.2 mg/dL [facility] Est, Glom Filt Rate 31 Low - PINF [facility] Comment on above: These results are not intended for use in patients <18 years of age. eGFR results are calculated without a race factor using the 2020 CKD-EPI equation. Careful clinical correlation is recommended, particularly when comparing to results calculated using previous equations. The CKD-EPI equation is less accurate in patients with extremes of muscle mass, extra-renal metabolism of creatine, excessive creatine ingestion, or following therapy that affects renal tubular secretion. Glucose [Mass/Vol] 81 mg/dL 74 - 99 mg/dL [facility] Interpretation and review of laboratory results Abnormal [facility] Potassium [Moles/Vol] 4.2 mmol/L 3.7 - 5.3 mmol/L [facility] Protein [Mass/Vol] 6.3 g/dL Low 6.6 - 8.7 g/dL [facility] Sodium [Moles/Vol] 136 mmol/L 136 - 145 mmol/L [facility] Urea nitrogen [Mass/Vol] 34 mg/dL High 8 - 23 mg/dL [facility] Magnesiumon 10-19-2024 Magnesium [Mass/Vol] 2.2 mg/dL 1.6 - 2.4 mg/dL [facility] No Panel Informationon 10-19 [facility] Phosphoruson 10-19-2024 Phosphate [Mass/Vol] 2.6 mg/dL 2.5 - 4.5 mg/dL [facility] CBCon 10-18-2024 Erythrocyte distribution width (RBC) [Ratio] 24.8 % High 11.5 - 14.9 % [facility] Hematocrit (Bld) [Volume fraction] 34.3 % Low 41 - 53 % [facility] Hemoglobin (Bld) [Mass/Vol] 10.7 g/dL Low 13.5 - 17.5 g/dL [facility] Interpretation and review of laboratory results Abnormal [facility] MCH (RBC) [Entitic mass] 28.8 pg 26 - 34 pg [facility] MCHC (RBC) [Mass/Vol] 31.3 g/dL 31 - 37 g/dL [facility] MCV (RBC) [Entitic vol] 91.9 fL 80 - 100 fL [facility] Platelet mean volume (Bld) [Entitic vol] 8.0 fL 6.0 - 12.0 fL [facility] Platelets (Bld) [#/Vol] 176 10*3/uL [facility] RBC (Bld) [#/Vol] 3.73 10*6/uL Low 4.5 - 5.9 m/uL [facility] WBC other (Bld) [#/Vol] 3.7 [facility] Comprehensive Metabolic Pane aldo 10-18-2024 Albumin [Mass/Vol] 3.6 g/dL 3.5 - 5.2 g/dL [facility] ALP [Catalytic activity/Vol] 121 U/L 40 - 129 U/L [facility] ALT [Catalytic activity/Vol] 42 U/L 10 - 50 U/L [facility] Anion gap [Moles/Vol] 12 mmol/L 9 - 16 mmol/L [facility] AST [Catalytic activity/Vol] 25 U/L 10 - 50 U/L [facility] Bilirubin [Mass/Vol] 0.9 mg/dL 0.0 - 1.2 mg/dL [facility] Calcium [Mass/Vol] 8.6 mg/dL 8.6 - 10. 4 mg/dL [facility] Chloride [Moles/Vol] 102 mmol/L 98 - 107 mmol/L [facility] CO2 [Moles/Vol] 25 mmol/L 20 - 31 mmol/L [facility] Creatinine [Mass/Vol] 2.0 mg/dL High 0.7 - 1.2 mg/dL [facility] Est, [place] Filt Rate 33 Low - PINF [facility] Comment on above: These results are not intended for use in patients <18 years of age. eGFR results are calculated without a race factor using the 2020 CKD-EPI equation. Careful clinical correlation is recommended, particularly when comparing to results calculated using previous equations. The CKD-EPI equation is less accurate in patients with extremes of muscle mass, extra-renal metabolism of creatine, excessive creatine ingestion, or following therapy that affects renal tubular secretion. Glucose [Mass/Vol] 112 mg/dL High 74 - 99 mg/dL [facility] Interpretation and review of laboratory results Abnormal [facility] Potassium [Moles/Vol] 4.2 mmol/L 3.7 - 5.3 mmol/L [facility] Protein [Mass/Vol] 6.3 g/dL Low 6.6 - 8.7 g/dL [facility] Sodium [Moles/Vol] 139 mmol/L 136 - 145 mmol/L [facility] Urea nitrogen [Mass/Vol] 34 mg/dL High 8 - 23 mg/dL [facility] Magnesiumon 10-18-2024 Magnesium [Mass/Vol] 2.2 mg/dL 1.6 - 2.4 mg/dL [facility] No Panel Informationon 10-18 [facility] CBC WITH AUTO DIFFERENTIALon 10-17-2024 Erythrocyte distribution width (RBC) [Ratio] 23.5 % High 11.5-15.0 [facility] Comment on above: Performed By: #### L [id number] ####[facility] ([facility])[address] [place] [address] ERYTHROCYTE MEAN CORPUSCULAR HEMOGLOBIN CONCENTRATION (G/DL) BY AUTOMATED 31.2 g/dL Low 32.0-35.[address] [facility] Comment on above: Performed By: #### L [id number] ####[facility] ([facility])[address] [place] [address] Hematocrit (Bld) [Volume fraction] 32.4 % Low 39.0-55.0 [facility] Comment on above: Performed By: #### L [id number] ####[facility] ([facility])[address] [place] [address] Hemoglobin (Bld) [Mass/Vol] 10.1 g/dL Low 13.0-17.0 [facility] Comment on above: Performed By: #### L [id number] ####[facility] ([facility])[address] [place] [address] MCH (RBC) [Entitic mass] 28.5 pg Normal 27.0-33.0 [facility] Comment on above: Performed By: #### L [id number] ####[facility] ([facility])[address] [place] [address] MCV (RBC) [Entitic vol] 91.3 fL Normal 82.0-98.0 [facility] Comment on above: Performed By: #### L [id number] ####[facility] ([facility])[address] [place] [address] NRBC (PER 100 WBCS) BY AUTOMATED COUNT 0.0 % Normal 0 [facility] Comment on above: Performed By: #### L [id number] ####[facility] ([facility] [place] [address] PLATELETS (10*3/UL) IN BLOOD AUTOMATED COUNT 174 10*3/uL Normal 150-400 [facility] Comment on above: Performed By: #### L [id number] ####[facility] ([facility] [place] [address] RBC (Bld) [#/Vol] 3.55 10*6/uL Low 4.20-5.70 [facility] Comment on above: Performed By: #### L [id number] ####[facility] ([facility])[address] [place] [address] WBC (Bld) [#/Vol] 3.78 10*3/uL Low 4.00-10.60 [facility] Comment on above: Performed By: #### L [id number] ####[facility] ([facility])[address] [place] [address] COMPREHENSIVE METABOLIC PANE Aldo 10-17-2024 Albumin [Mass/Vol] 3.5 g/dL Normal 3.5-5.7 [facility] Comment on above: Performed By: #### L [id number] ####[facility] ([facility] [place] [address] ALP [Catalytic activity/Vol] 102 U/L Normal 34-104 [facility] Comment on above: Performed By: #### L [id number] ####[facility] ([facility])[address] [place] [address] ALT [Catalytic activity/Vol] 29 U/L Normal 7-52 [facility] Comment on above: Performed By: #### L [id number] ####[facility] ([facility] [place] [address] Anion gap [Moles/Vol] 9 mmol/L Normal 7-20 [facility] Comment on above: Performed By: #### L [id number] ####[facility] ([facility] [place] [address] AST [Catalytic activity/Vol] 16 U/L Normal 13-39 [facility] Comment on above: Performed By: #### L [id number] ####[facility] ([facility] [place] [address] Bilirubin [Mass/Vol] 1.2 mg/dL High 0.3-1.0 [facility] Comment on above: Performed By: #### L [id number] ####[facility] ([facility] [place] [address] Calcium [Mass/Vol] 8.8 mg/dL Normal 8.6-10.3 [facility] Comment on above: Performed By: #### L [id number] ####[facility] ([facility] [place] [address] Chloride [Moles/Vol] 101 mmol/L Normal 98-107 [facility] Comment on above: Performed By: #### L [id number] ####[facility] ([facility] [place] [address] CO2 [Moles/Vol] 30 mmol/L Normal 21-31 [facility] Comment on above: Performed By: #### L [id number] ####[facility] ([facility] [place] [address] Creatinine [Mass/Vol] 2.01 mg/dL High 0.70-1.30 [facility] Comment on above: Performed By: #### L [id number] ####[facility] ([facility])[address] [place] [address] GLOMERULAR FILTRATION RATE ML/MIN/1.73 SQ M.PREDICTED 32.5 mL/min/1.73m*2 Low >60.[address] [facility] Comment on above: Result Comment: [facility]???s estimated glomerular filtration rate (eGFR) will [...] of individuals. Performed By: #### L [id number] ####[facility] ([facility] [place] [address] Glucose [Mass/Vol] 79 mg/dL Normal 70-100 [facility] Comment on above: Performed By: #### L [id number] ####[facility] ([facility] [place] [address] Potassium [Moles/Vol] 2.9 mmol/L Invalid Interpretation Code 3.5-5.1 [facility] Comment on above: Performed By: #### L [id number] ####[facility] ([facility])[address] [place] [address] Protein [Mass/Vol] 5.9 g/dL Low 6.0-8.3 [facility] Comment on above: Performed By: #### L [id number] ####[facility] ([facility])[address] [place] [address] Sodium [Moles/Vol] 137 mmol/L Normal 136-145 [facility] Comment on above: Performed By: #### L [id number] ####[facility] ([facility])[address] [place] [address] Urea nitrogen [Mass/Vol] 37 mg/dL High 7-25 [facility] Comment on above: Performed By: #### L [id number] ####[facility] ([facility])[address] [place] [address] UREA NITROGEN/CREATININE (MASS RATIO) IN SER/PLAS 18.4 Normal [facility] Comment on above: Performed By: #### L [id number] ####[facility] ([facility])[address] [place] [address] DSon 10-17-2024 DS Normal [facility] MAGNESIUMon 10-17-2024 Magnesium [Mass/Vol] 2.0 mg/dL Normal 1.9-2.7 [facility] Comment on above: Performed By: #### L [id number] ####[facility] ([facility])[address] [place] [address] MANUAL DIFFERENTIALon 2024 ANISOCYTOSIS PRESENCE IN BLOOD BY LIGHT MICROSCOPY Moderate Normal [facility] Comment on above: Performed By: #### L [id number] ####[facility] ([facility] [place] [address] BASOPHILS (10*3/UL) IN BLOOD BY CALCULATION 0.03 10*3/uL Normal 0.00-0.20 [facility] Comment on above: Performed By: #### L [id number] ####[facility] ([facility])[address] [place] [address] BASOPHILS/100 LEUKOCYTES IN BLOOD BY AUTOMATED COUNT 0.8 % Normal 0.0-1.0 [facility] Comment on above: Performed By: #### L [id number] ####[facility] ([facility])[address] [place] [address] EOSINOPHILS (10*3/UL) IN BLOOD BY CALCULATION 0.15 10*3/uL Normal 0.00-0.50 [facility] Comment on above: Performed By: #### L [id number] ####[facility] ([facility])[address] [place] [address] EOSINOPHILS/100 LEUKOCYTES IN BLOOD BY AUTOMATED COUNT 4.0 % Normal 0.0-6.0 [facility] Comment on above: Performed By: #### L [id number] ####[facility] ([facility])[address] [place] [address] IMMATURE GRANULOCYTES (10*3/UL) IN BLOOD BY CALCULATION 0.01 10*3/uL Normal 0.00-0.20 [facility] Comment on above: Performed By: #### L [id number] ####[facility] ([facility])[address] [place] [address] IMMATURE GRANULOCYTES/100 LEUKOCYTES IN BLOOD BY AUTOMATED COUNT 0.3 % Normal 0.0-1.0 [facility] Comment on above: Performed By: #### L [id number] ####[facility] ([facility])[address] [place] [address] LYMPHOCYTES (10*3/UL) IN BLOOD BY CALCULATION 0.74 10*3/uL Low 1.20-4.00 [facility] Comment on above: Performed By: #### L [id number] ####[facility] ([facility])[address] [place] [address] LYMPHOCYTES/100 LEUKOCYTES IN BLOOD BY AUTOMATED COUNT 19.6 % Low 20.0-45.0 [facility] Comment on above: Performed By: #### L [id number] ####[facility] ([facility])[address] [place] [address] MONOCYTES (10*3/UL) IN BLOOD BY CALCUATION 0.51 10*3/uL Normal 0.10-1.00 [facility] Comment on above: Performed By: #### L [id number] ####[facility] ([facility])[address] [place] [address] MONOCYTES/100 LEUKOCYTES IN BLOOD BY AUTOMATED COUNT 13.5 % High 5.0-12.0 [facility] Comment on above: Performed By: #### L [id number] ####[facility] ([facility])[address] [place] [address] NEUTROPHILS (10*3/UL) IN BLOOD BY CALCULATION 2.3 10*3/uL Normal 1.6-7.6 [facility] Comment on above: Performed By: #### L [id number] ####[facility] ([facility])[address] [place] [address] NEUTROPHILS/100 LEUKOCYTES IN BLOOD BY AUTOMATED COUNT 61.8 % Normal 40.0-72.0 [facility] Comment on above: Performed By: #### L [id number] ####[facility] ([facility] [place] [address] POIKILOCYTOSIS (PRESENCE) IN BLOOD BY LIGHT MICROSCOPY Slight Normal [facility] Comment on above: Performed By: #### L [id number] ####[facility] ([facility])[address] [place] [address] POLYCHROMASIA IN BLOOD BY LIGHT MICROSCOPY Slight Normal [facility] Comment on above: Performed By: #### L [id number] ####[facility] ([facility] [place] [address] NURSNOTEon 10-17-2024 NURSNOTE Report called to Anay burns at [facility] ([phone]) Normal [facility] POTASSIUMon 10-17-2024 Potassium [Moles/Vol] 3.3 mmol/L Low 3.5-5.1 [facility] Comment on above: Performed By: #### L [id number] ####[facility] ([facility] [place] [address] 30on 10-16-2024 30 Normal [facility] CBC WITH AUTO DIFFERENTIALon 10-16-2024 Erythrocyte distribution width (RBC) [Ratio] 23.8 % High 11.5-15.0 [facility] Comment on above: Performed By: #### L [id number] ####[facility] ([facility])[address] [place] [address] ERYTHROCYTE MEAN CORPUSCULAR HEMOGLOBIN CONCENTRATION (G/DL) BY AUTOMATED 30.1 g/dL Low 32.0-35.[address] [facility] Comment on above: Performed By: #### L [id number] ####[facility] ([facility])[address] [place] [address] Hematocrit (Bld) [Volume fraction] 34.6 % Low 39.0-55.0 [facility] Comment on above: Performed By: #### L [id number] ####[facility] ([facility])[address] [place] [address] Hemoglobin (Bld) [Mass/Vol] 10.4 g/dL Low 13.0-17.0 [facility] Comment on above: Performed By: #### L [id number] ####[facility] ([facility])[address] [place] [address] MCH (RBC) [Entitic mass] 28.4 pg Normal 27.0-33.0 [facility] Comment on above: Performed By: #### L [id number] ####[facility] ([facility] [place] [address] MCV (RBC) [Entitic vol] 94.5 fL Normal 82.0-98.0 [facility] Comment on above: Performed By: #### L [id number] ####[facility] ([facility] [place] [address] NRBC (PER 100 WBCS) BY AUTOMATED COUNT 0.0 % Normal 0 [facility] Comment on above: Performed By: #### L [id number] ####[facility] ([facility])[address] [place] [address] PLATELETS (10*3/UL) IN BLOOD AUTOMATED COUNT 179 10*3/uL Normal 150-400 [facility] Comment on above: Performed By: #### L [id number] ####[facility] ([facility])[address] [place] [address] RBC (Bld) [#/Vol] 3.66 10*6/uL Low 4.20-5.70 [facility] Comment on above: Performed By: #### L [id number] ####[facility] ([facility])[address] [place] [address] WBC (Bld) [#/Vol] 4.33 10*3/uL Normal 4.00-10.60 [facility] Comment on above: Performed By: #### L [id number] ####[facility] ([facility] [place] [address] COMPREHENSIVE METABOLIC PANE Aldo 10-16-2024 Albumin [Mass/Vol] 3.6 g/dL Normal 3.5-5.7 [facility] Comment on above: Performed By: #### L [id number] ####[facility] ([facility] [place] [address] ALP [Catalytic activity/Vol] 112 U/L High 34-104 [facility] Comment on above: Performed By: #### L [id number] ####[facility] ([facility] [place] [address] ALT [Catalytic activity/Vol] 33 U/L Normal 7-52 [facility] Comment on above: Performed By: #### L [id number] ####[facility] ([facility])[address] [place] [address] Anion gap [Moles/Vol] 12 mmol/L Normal 7-20 [facility] Comment on above: Performed By: #### L [id number] ####[facility] ([facility] [place] [address] AST [Catalytic activity/Vol] 19 U/L Normal 13-39 [facility] Comment on above: Performed By: #### L [id number] ####[facility] ([facility])[address] [place] [address] Bilirubin [Mass/Vol] 1.3 mg/dL High 0.3-1.0 [facility] Comment on above: Performed By: #### L [id number] ####[facility] ([facility])[address] [place] [address] Calcium [Mass/Vol] 8.9 mg/dL Normal 8.6-10.3 [facility] Comment on above: Performed By: #### L [id number] ####[facility] ([facility])[address] [place] [address] Chloride [Moles/Vol] 102 mmol/L Normal 98-107 [facility] Comment on above: Performed By: #### L [id number] ####[facility] ([facility] [place] [address] CO2 [Moles/Vol] 26 mmol/L Normal 21-31 [facility] Comment on above: Performed By: #### L [id number] ####[facility] ([facility])[address] [place] [address] Creatinine [Mass/Vol] 2.13 mg/dL High 0.70-1.30 [facility] Comment on above: Performed By: #### L [id number] ####[facility] ([facility])[address] [place] [address] GLOMERULAR FILTRATION RATE ML/MIN/1.73 SQ M.PREDICTED 30.3 mL/min/1.73m*2 Low >60.[address] [facility] Comment on above: Result Comment: [facility]???s estimated glomerular filtration rate (eGFR) will [...] of individuals. Performed By: #### L [id number] ####[facility] ([facility])[address] [place] [address] Glucose [Mass/Vol] 77 mg/dL Normal 70-100 [facility] Comment on above: Performed By: #### L [id number] ####[facility] ([facility])[address] [place] [address] Potassium [Moles/Vol] 3.6 mmol/L Normal 3.5-5.1 [facility] Comment on above: Performed By: #### L [id number] ####[facility] ([facility])[address] [place] [address] Protein [Mass/Vol] 6.1 g/dL Normal 6.0-8.3 [facility] Comment on above: Performed By: #### L [id number] ####[facility] ([facility])[address] [facility] [place] [address] Sodium [Moles/Vol] 136 mmol/L Normal 136-145 [facility] Comment on above: Performed By: #### L [id number] ####[facility] ([facility])[address] [facility] [place] [address] Urea nitrogen [Mass/Vol] 40 mg/dL High 7-25 [facility] Comment on above: Performed By: #### L [id number] ####[facility] ([facility])[address] [place] [address] UREA NITROGEN/CREATININE (MASS RATIO) IN SER/PLAS 18.8 Normal [facility] Comment on above: Performed By: #### L [id number] ####[facility] ([facility])[address] [place] [address] MAGNESIUMon 10-16-2024 Magnesium [Mass/Vol] 2.3 mg/dL Normal 1.9-2.7 [facility] Comment on above: Performed By: #### L [id number] ####[facility] ([facility])[address] [place] [address] MANUAL DIFFERENTIALon 2024 ACANTHOCYTES PRESENCE IN BLOOD BY LIGHT MICROSCOPY Moderate Normal [facility] Comment on above: Performed By: #### L [id number] ####[facility] ([facility])[address] [place] [address] ANISOCYTOSIS PRESENCE IN BLOOD BY LIGHT MICROSCOPY Moderate Normal [facility] Comment on above: Performed By: #### L [id number] ####[facility] ([facility])[address] [place] [address] BASOPHILS (10*3/UL) IN BLOOD BY CALCULATION 0.04 10*3/uL Normal 0.00-0.20 [facility] Comment on above: Performed By: #### L [id number] ####[facility] ([facility])[address] [place] [address] BASOPHILS/100 LEUKOCYTES IN BLOOD BY AUTOMATED COUNT 0.9 % Normal 0.0-1.0 [facility] Comment on above: Performed By: #### L [id number] ####[facility] ([facility])[address] [place] [address] ELLIPTOCYTES IN BLOOD BY LIGHT MICROSCOPY Slight Normal [facility] Comment on above: Performed By: #### L [id number] ####[facility] ([facility])[address] [place] [address] EOSINOPHILS (10*3/UL) IN BLOOD BY CALCULATION 0.16 10*3/uL Normal 0.00-0.50 [facility] Comment on above: Performed By: #### L [id number] ####[facility] ([facility])[address] [place] [address] EOSINOPHILS/100 LEUKOCYTES IN BLOOD BY AUTOMATED COUNT 3.7 % Normal 0.0-6.0 [facility] Comment on above: Performed By: #### L [id number] ####[facility] ([facility])[address] [place] [address] IMMATURE GRANULOCYTES (10*3/UL) IN BLOOD BY CALCULATION 0.02 10*3/uL Normal 0.00-0.20 [facility] Comment on above: Performed By: #### L [id number] ####[facility] ([facility])[address] [place] [address] IMMATURE GRANULOCYTES/100 LEUKOCYTES IN BLOOD BY AUTOMATED COUNT 0.5 % Normal 0.0-1.0 [facility] Comment on above: Performed By: #### L [id number] ####[facility] ([facility])[address] [place] [address] LYMPHOCYTES (10*3/UL) IN BLOOD BY CALCULATION 0.71 10*3/uL Low 1.20-4.00 [facility] Comment on above: Performed By: #### L [id number] ####[facility] ([facility])[address] [place] [address] LYMPHOCYTES/100 LEUKOCYTES IN BLOOD BY AUTOMATED COUNT 16.4 % Low 20.0-45.0 [facility] Comment on above: Performed By: #### L [id number] ####[facility] ([facility])[address] [place] [address] MONOCYTES (10*3/UL) IN BLOOD BY CALCUATION 0.52 10*3/uL Normal 0.10-1.00 [facility] Comment on above: Performed By: #### L [id number] ####[facility] [place] [address] MONOCYTES/100 LEUKOCYTES IN BLOOD BY AUTOMATED COUNT 12.0 % Normal 5.0-12.0 [facility] Comment on above: Performed By: #### L [id number] ####[facility] ([facility])[address] [place] [address] NEUTROPHILS (10*3/UL) IN BLOOD BY CALCULATION 2.9 10*3/uL Normal 1.6-7.6 [facility] Comment on above: Performed By: #### L [id number] ####[facility] ([facility])[address] [place] [address] NEUTROPHILS/100 LEUKOCYTES IN BLOOD BY AUTOMATED COUNT 66.5 % Normal 40.0-72.0 [facility] Comment on above: Performed By: #### L [id number] ####[facility] ([facility])[address] [place] [address] OVALOCYTES PRESENCE IN BLOOD BY LIGHT MICROSCOPY Slight Normal [facility] Comment on above: Performed By: #### L [id number] ####[facility] ([facility])[address] [place] [address] POIKILOCYTOSIS (PRESENCE) IN BLOOD BY LIGHT MICROSCOPY Moderate Normal [facility] Comment on above: Performed By: #### L [id number] ####[facility] ([facility])[address] [place] [address] POLYCHROMASIA IN BLOOD BY LIGHT MICROSCOPY Slight Normal [facility] Comment on above: Performed By: #### L [id number] ####[facility] ([facility])[address] [place] [address] SCHISTOCYTES (PRESENCE) IN BLOOD BY LIGHT MICROSCOPY Slight Normal [facility] Comment on above: Performed By: #### L [id number] ####[facility] ([facility])[address] [place] [address] 30on 10-15-2024 30 Normal [facility] 30 Normal [facility] ANESon 10-15-2024 ANES Normal [facility] CBC WITH AUTO DIFFERENTIALon 10-15-2024 Erythrocyte distribution width (RBC) [Ratio] 23.9 % High 11.5-15.0 [facility] Comment on above: Performed By: #### L [id number] ####[facility] ([facility])[address] [place] [address] ERYTHROCYTE MEAN CORPUSCULAR HEMOGLOBIN CONCENTRATION (G/DL) BY AUTOMATED 30.5 g/dL Low 32.0-35.[address] [facility] Comment on above: Performed By: #### L [id number] ####[facility] ([facility])[address] [place] [address] Hematocrit (Bld) [Volume fraction] 33.8 % Low 39.0-55.0 [facility] Comment on above: Performed By: #### L [id number] ####[facility] ([facility])[address] [place] [address] Hemoglobin (Bld) [Mass/Vol] 10.3 g/dL Low 13.0-17.0 [facility] Comment on above: Performed By: #### L [id number] ####[facility] ([facility])[address] [place] [address] MCH (RBC) [Entitic mass] 28.5 pg Normal 27.0-33.0 [facility] Comment on above: Performed By: #### L [id number] ####[facility] ([facility])[address] [place] [address] MCV (RBC) [Entitic vol] 93.6 fL Normal 82.0-98.0 [facility] Comment on above: Performed By: #### L [id number] ####[facility] ([facility])[address] [place] [address] NRBC (PER 100 WBCS) BY AUTOMATED COUNT 0.0 % Normal 0 [facility] Comment on above: Performed By: #### L [id number] ####[facility] ([facility])[address] [place] [address] PLATELETS (10*3/UL) IN BLOOD AUTOMATED COUNT 159 10*3/uL Normal 150-400 [facility] Comment on above: Performed By: #### L [id number] ####[facility] ([facility] [place] [address] RBC (Bld) [#/Vol] 3.61 10*6/uL Low 4.20-5.70 [facility] Comment on above: Performed By: #### L [id number] ####[facility] ([facility] [place] [address] WBC (Bld) [#/Vol] 4.40 10*3/uL Normal 4.00-10.60 [facility] Comment on above: Performed By: #### L [id number] ####[facility] ([facility])[address] [place] [address] COMPREHENSIVE METABOLIC PANE Aldo 10-15-2024 Albumin [Mass/Vol] 3.8 g/dL Normal 3.5-5.7 [facility] Comment on above: Performed By: #### L [id number] ####[facility] ([facility])[address] [place] [address] ALP [Catalytic activity/Vol] 96 U/L Normal 34-104 [facility] Comment on above: Performed By: #### L [id number] ####[facility] ([facility])[address] [place] [address] ALT [Catalytic activity/Vol] 39 U/L Normal 7-52 [facility] Comment on above: Performed By: #### L [id number] ####[facility] ([facility] [place] [address] Anion gap [Moles/Vol] 12 mmol/L Normal 7-20 [facility] Comment on above: Performed By: #### L [id number] ####[facility] ([facility] [place] [address] AST [Catalytic activity/Vol] 19 U/L Normal 13-39 [facility] Comment on above: Performed By: #### L [id number] ####[facility] ([facility] [place] [address] Bilirubin [Mass/Vol] 1.4 mg/dL High 0.3-1.0 [facility] Comment on above: Performed By: #### L [id number] ####[facility] ([facility])[address] [place] [address] Calcium [Mass/Vol] 9.0 mg/dL Normal 8.6-10.3 [facility] Comment on above: Performed By: #### L [id number] ####[facility] ([facility])[address] [place] [address] Chloride [Moles/Vol] 102 mmol/L Normal 98-107 [facility] Comment on above: Performed By: #### L [id number] ####[facility] ([facility])[address] [place] [address] CO2 [Moles/Vol] 25 mmol/L Normal 21-31 [facility] Comment on above: Performed By: #### L [id number] ####[facility] ([facility])[address] [place] [address] Creatinine [Mass/Vol] 2.38 mg/dL High 0.70-1.30 [facility] Comment on above: Performed By: #### L [id number] ####[facility] ([facility])[address] [place] [address] GLOMERULAR FILTRATION RATE ML/MIN/1.73 SQ M.PREDICTED 26.5 mL/min/1.73m*2 Low >60.[address] [facility] Comment on above: Result Comment: [facility]???s estimated glomerular filtration rate (eGFR) will [...] of individuals. Performed By: #### L [id number] ####[facility] ([facility])[address] [place] [address] Glucose [Mass/Vol] 82 mg/dL Normal 70-100 [facility] Comment on above: Performed By: #### L [id number] ####[facility] ([facility])[address] [place] [address] Potassium [Moles/Vol] 4.1 mmol/L Normal 3.5-5.1 [facility] Comment on above: Performed By: #### L [id number] ####[facility] ([facility])[address] [place] [address] Protein [Mass/Vol] 6.2 g/dL Normal 6.0-8.3 [facility] Comment on above: Performed By: #### L [id number] ####[facility] ([facility])[address] [place] [address] Sodium [Moles/Vol] 135 mmol/L Low 136-145 [facility] Comment on above: Performed By: #### L [id number] ####[facility] ([facility])[address] [place] [address] Urea nitrogen [Mass/Vol] 40 mg/dL High 7-25 [facility] Comment on above: Performed By: #### L [id number] ####[facility] ([facility])[address] [place] [address] UREA NITROGEN/CREATININE (MASS RATIO) IN SER/PLAS 16.8 Normal [facility] Comment on above: Performed By: #### L [id number] ####[facility] ([facility])[address] [place] [address] HPon 10-15-2024 HP Normal [facility] MAGNESIUMon 10-15-2024 Magnesium [Mass/Vol] 2.3 mg/dL Normal 1.9-2.7 [facility] Comment on above: Performed By: #### L [id number] ####[facility] ([facility])[address] [place] [address] MANUAL DIFFERENTIALon 2024 ANISOCYTOSIS PRESENCE IN BLOOD BY LIGHT MICROSCOPY Moderate Normal [facility] Comment on above: Performed By: #### L [id number] ####[facility] ([facility])[address] [place] [address] BASOPHILS (10*3/UL) IN BLOOD BY CALCULATION 0.04 10*3/uL Normal 0.00-0.20 [facility] Comment on above: Performed By: #### L [id number] ####[facility] ([facility])[address] [place] [address] BASOPHILS/100 LEUKOCYTES IN BLOOD BY AUTOMATED COUNT 0.9 % Normal 0.0-1.0 [facility] Comment on above: Performed By: #### L [id number] ####[facility] ([facility])[address] [place] [address] ELLIPTOCYTES IN BLOOD BY LIGHT MICROSCOPY Slight Normal [facility] Comment on above: Performed By: #### L [id number] ####[facility] ([facility])[address] [facility] [address] EOSINOPHILS (10*3/UL) IN BLOOD BY CALCULATION 0.16 10*3/uL Normal 0.00-0.50 [facility] Comment on above: Performed By: #### L [id number] ####[facility] ([facility])[address] [place] [address] EOSINOPHILS/100 LEUKOCYTES IN BLOOD BY AUTOMATED COUNT 3.6 % Normal 0.0-6.0 [facility] Comment on above: Performed By: #### L [id number] ####[facility] ([facility])[address] [place] [address] HYPOCHROMIA (PRESENCE) IN BLOOD BY LIGHT MICROSCOPY Slight Normal [facility] Comment on above: Performed By: #### L [id number] ####[facility] ([facility])[address] [facility] [place] [address] IMMATURE GRANULOCYTES (10*3/UL) IN BLOOD BY CALCULATION 0.02 10*3/uL Normal 0.00-0.20 [facility] Comment on above: Performed By: #### L [id number] ####[facility] ([facility])[address] [place] [address] IMMATURE GRANULOCYTES/100 LEUKOCYTES IN BLOOD BY AUTOMATED COUNT 0.5 % Normal 0.0-1.0 [facility] Comment on above: Performed By: #### L [id number] ####[facility] ([facility])[address] [place] [address] LYMPHOCYTES (10*3/UL) IN BLOOD BY CALCULATION 0.81 10*3/uL Low 1.20-4.00 [facility] Comment on above: Performed By: #### L [id number] ####[facility] ([facility])[address] [place], [place] [address] LYMPHOCYTES/100 LEUKOCYTES IN BLOOD BY AUTOMATED COUNT 18.4 % Low 20.0-45.0 [facility] Comment on above: Performed By: #### L [id number] ####[facility] ([facility])[address] [place], [place] [address] MONOCYTES (10*3/UL) IN BLOOD BY CALCUATION 0.51 10*3/uL Normal 0.10-1.00 [facility] Comment on above: Performed By: #### L [id number] ####[facility] ([facility])[address] [place], [place] [address] MONOCYTES/100 LEUKOCYTES IN BLOOD BY AUTOMATED COUNT 11.6 % Normal 5.0-12.0 [facility] Comment on above: Performed By: #### L [id number] ####[facility] ([facility])[address] [place], [place] [address] NEUTROPHILS (10*3/UL) IN BLOOD BY CALCULATION 2.9 10*3/uL Normal 1.6-7.6 [facility] Comment on above: Performed By: #### L [id number] ####[facility] ([facility])[address] [place], [place] [address] NEUTROPHILS/100 LEUKOCYTES IN BLOOD BY AUTOMATED COUNT 65.0 % Normal 40.0-72.0 [facility] Comment on above: Performed By: #### L [id number] ####[facility] ([facility])[address] [place] [address] OVALOCYTES PRESENCE IN BLOOD BY LIGHT MICROSCOPY Slight Normal [facility] Comment on above: Performed By: #### L [id number] ####[facility] ([facility] [place] [address] POIKILOCYTOSIS (PRESENCE) IN BLOOD BY LIGHT MICROSCOPY Moderate Normal [facility] Comment on above: Performed By: #### L [id number] ####[facility] ([facility])[address] [place] [address] POLYCHROMASIA IN BLOOD BY LIGHT MICROSCOPY Slight Normal [facility] Comment on above: Performed By: #### L [id number] ####[facility] ([facility])[address] [facility] [place] [address] SCHISTOCYTES (PRESENCE) IN BLOOD BY LIGHT MICROSCOPY Slight Normal [facility] Comment on above: Performed By: #### L [id number] ####[facility] ([facility])[address] [place] [address] 30on 10-14-2024 30 Normal [facility] 30 Normal [facility] 30 The patient is Moder ately Stable - Low risk of patient condition declining or worsening The patient's goals for the shift include comfort and rest The clinical goals for the shift include VSS Normal [facility] B-TYPE NATRIURETIC PEPTIDEon 10-14-2024 Natriuretic peptide B (Bld) [Mass/Vol] 4304 pg/mL High 0-100 [facility] Comment on above: Performed By: #### L [id number] ####[facility] ([facility] [place] [address] CBC WITH AUTO DIFFERENTIALon 10-14-2024 Erythrocyte distribution width (RBC) [Ratio] 24.1 % High 11.5-15.0 [facility] Comment on above: Performed By: #### L [id number] ####[facility] ([facility] [place] [address] ERYTHROCYTE MEAN CORPUSCULAR HEMOGLOBIN CONCENTRATION (G/DL) BY AUTOMATED 30.9 g/dL Low 32.0-35.[address] [facility] Comment on above: Performed By: #### L [id number] ####[facility] ([facility] [place] [address] Hematocrit (Bld) [Volume fraction] 33.7 % Low 39.0-55.0 [facility] Comment on above: Performed By: #### L [id number] ####[facility] ([facility])[address] [place] [address] Hemoglobin (Bld) [Mass/Vol] 10.4 g/dL Low 13.0-17.0 [facility] Comment on above: Performed By: #### L [id number] ####[facility] ([facility])[address] [place] [address] MCH (RBC) [Entitic mass] 28.4 pg Normal 27.0-33.0 [facility] Comment on above: Performed By: #### L [id number] ####[facility] ([facility])[address] [place] [address] MCV (RBC) [Entitic vol] 92.1 fL Normal 82.0-98.0 [facility] Comment on above: Performed By: #### L [id number] ####[facility] ([facility])[address] [place] [address] NRBC (PER 100 WBCS) BY AUTOMATED COUNT 0.0 % Normal 0 [facility] Comment on above: Performed By: #### L [id number] ####[facility] ([facility])[address] [place] [address] PLATELETS (10*3/UL) IN BLOOD AUTOMATED COUNT 163 10*3/uL Normal 150-400 [facility] Comment on above: Performed By: #### L [id number] ####[facility] ([facility] [place] [address] RBC (Bld) [#/Vol] 3.66 10*6/uL Low 4.20-5.70 [facility] Comment on above: Performed By: #### L [id number] ####[facility] ([facility] [place] [address] WBC (Bld) [#/Vol] 4.77 10*3/uL Normal 4.00-10.60 [facility] Comment on above: Performed By: #### L [id number] ####[facility] ([facility] [place] [address] COMPREHENSIVE METABOLIC PANE Aldo 10-14-2024 Albumin [Mass/Vol] 3.9 g/dL Normal 3.5-5.7 [facility] Comment on above: Performed By: #### L [id number] ####[facility] ([facility] [place] [address] ALP [Catalytic activity/Vol] 85 U/L Normal 34-104 [facility] Comment on above: Performed By: #### L [id number] ####[facility] ([facility] [place] [address] ALT [Catalytic activity/Vol] 44 U/L Normal 7-52 [facility] Comment on above: Performed By: #### L [id number] ####[facility] ([facility] [place] [address] Anion gap [Moles/Vol] 11 mmol/L Normal 7-20 [facility] Comment on above: Performed By: #### L [id number] ####[facility] ([facility] [place] [address] AST [Catalytic activity/Vol] 19 U/L Normal 13-39 [facility] Comment on above: Performed By: #### L [id number] ####[facility] ([facility] [place] [address] Bilirubin [Mass/Vol] 1.5 mg/dL High 0.3-1.0 [facility] Comment on above: Performed By: #### L [id number] ####[facility] ([facility] [place] [address] Calcium [Mass/Vol] 9.0 mg/dL Normal 8.6-10.3 [facility] Comment on above: Performed By: #### L [id number] ####[facility] ([facility])[address] [place] [address] Chloride [Moles/Vol] 100 mmol/L Normal 98-107 [facility] Comment on above: Performed By: #### L [id number] ####[facility] ([facility])[address] [place] [address] CO2 [Moles/Vol] 27 mmol/L Normal 21-31 [facility] Comment on above: Performed By: #### L [id number] ####[facility] ([facility])[address] [place] [address] Creatinine [Mass/Vol] 2.46 mg/dL High 0.70-1.30 [facility] Comment on above: Performed By: #### L [id number] ####[facility] ([facility])[address] [place] [address] GLOMERULAR FILTRATION RATE ML/MIN/1.73 SQ M.PREDICTED 25.5 mL/min/1.73m*2 Low >60.[address] [facility] Comment on above: Result Comment: [facility]???s estimated glomerular filtration rate (eGFR) will [...] of individuals. Performed By: #### L [id number] ####[facility] ([facility])[address] [place] [address] Glucose [Mass/Vol] 94 mg/dL Normal 70-100 [facility] Comment on above: Performed By: #### L [id number] ####[facility] ([facility])[address] [place] [address] Potassium [Moles/Vol] 4.3 mmol/L Normal 3.5-5.1 [facility] Comment on above: Performed By: #### L [id number] ####[facility] ([facility])[address] [place] [address] Protein [Mass/Vol] 6.2 g/dL Normal 6.0-8.3 [facility] Comment on above: Performed By: #### L [id number] ####[facility] ([facility])[address] [place] [address] Sodium [Moles/Vol] 134 mmol/L Low 136-145 [facility] Comment on above: Performed By: #### L [id number] ####[facility] ([facility])[address] [place] [address] Urea nitrogen [Mass/Vol] 43 mg/dL High 7-25 [facility] Comment on above: Performed By: #### L [id number] ####[facility] ([facility])[address] [place] [address] UREA NITROGEN/CREATININE (MASS RATIO) IN SER/PLAS 17.5 Normal [facility] Comment on above: Performed By: #### L [id number] ####[facility] ([facility])[address] [place] [address] MAGNESIUMon 10-14-2024 Magnesium [Mass/Vol] 2.3 mg/dL Normal 1.9-2.7 [facility] Comment on above: Performed By: #### L [id number] ####[facility] ([facility])[address] [place] [address] MANUAL DIFFERENTIALon 2024 ACANTHOCYTES PRESENCE IN BLOOD BY LIGHT MICROSCOPY Moderate Normal [facility] Comment on above: Performed By: #### L [id number] ####[facility] [place] [address] ANISOCYTOSIS PRESENCE IN BLOOD BY LIGHT MICROSCOPY Moderate Normal [facility] Comment on above: Performed By: #### L [id number] ####[facility] ([facility])[address] [place] [address] BASOPHILS (10*3/UL) IN BLOOD BY CALCULATION 0.04 10*3/uL Normal 0.00-0.20 [facility] Comment on above: Performed By: #### L [id number] ####[facility] ([facility])[address] [place] [address] BASOPHILS/100 LEUKOCYTES IN BLOOD BY AUTOMATED COUNT 0.8 % Normal 0.0-1.0 [facility] Comment on above: Performed By: #### L [id number] ####[facility] ([facility])[address] [place] [address] ELLIPTOCYTES IN BLOOD BY LIGHT MICROSCOPY Slight Normal [facility] Comment on above: Performed By: #### L [id number] ####[facility] ([facility])[address] [place] [address] EOSINOPHILS (10*3/UL) IN BLOOD BY CALCULATION 0.14 10*3/uL Normal 0.00-0.50 [facility] Comment on above: Performed By: #### L [id number] ####[facility] ([facility])[address] [place] [address] EOSINOPHILS/100 LEUKOCYTES IN BLOOD BY AUTOMATED COUNT 2.9 % Normal 0.0-6.0 [facility] Comment on above: Performed By: #### L [id number] ####[facility] ([facility])[address] [place] [address] IMMATURE GRANULOCYTES (10*3/UL) IN BLOOD BY CALCULATION 0.03 10*3/uL Normal 0.00-0.20 [facility] Comment on above: Performed By: #### L [id number] ####[facility] ([facility])[address] [place] [address] IMMATURE GRANULOCYTES/100 LEUKOCYTES IN BLOOD BY AUTOMATED COUNT 0.6 % Normal 0.0-1.0 [facility] Comment on above: Performed By: #### L [id number] ####[facility] [place] [address] LYMPHOCYTES (10*3/UL) IN BLOOD BY CALCULATION 0.78 10*3/uL Low 1.20-4.00 [facility] Comment on above: Performed By: #### L [id number] ####[facility] [place], [place] [address] LYMPHOCYTES/100 LEUKOCYTES IN BLOOD BY AUTOMATED COUNT 16.4 % Low 20.0-45.0 [facility] Comment on above: Performed By: #### L [id number] ####[facility] ([facility])[address] [place], [place] [address] MONOCYTES (10*3/UL) IN BLOOD BY CALCUATION 0.57 10*3/uL Normal 0.10-1.00 [facility] Comment on above: Performed By: #### L [id number] ####[facility] ([facility])[address] [place], [place] [address] MONOCYTES/100 LEUKOCYTES IN BLOOD BY AUTOMATED COUNT 11.9 % Normal 5.0-12.0 [facility] Comment on above: Performed By: #### L [id number] ####[facility] ([facility])[address] [place], [place] [address] NEUTROPHILS (10*3/UL) IN BLOOD BY CALCULATION 3.2 10*3/uL Normal 1.6-7.6 [facility] Comment on above: Performed By: #### L [id number] ####[facility] ([facility])[address] [place], [place] [address] NEUTROPHILS/100 LEUKOCYTES IN BLOOD BY AUTOMATED COUNT 67.4 % Normal 40.0-72.0 [facility] Comment on above: Performed By: #### L [id number] ####[facility] ([facility])[address] [place], [place] [address] OVALOCYTES PRESENCE IN BLOOD BY LIGHT MICROSCOPY Slight Normal [facility] Comment on above: Performed By: #### L [id number] ####[facility] [place] [address] POIKILOCYTOSIS (PRESENCE) IN BLOOD BY LIGHT MICROSCOPY Moderate Normal [facility] Comment on above: Performed By: #### L [id number] ####[facility] ([facility])[address] [place] [address] POLYCHROMASIA IN BLOOD BY LIGHT MICROSCOPY Slight Normal [facility] Comment on above: Performed By: #### L [id number] ####[facility] ([facility])[address] [place] [address] SCHISTOCYTES (PRESENCE) IN BLOOD BY LIGHT MICROSCOPY Slight Normal [facility] Comment on above: Performed By: #### L [id number] ####[facility] ([facility])[address] [place] [address] 30on 10-13-2024 30 Normal [facility] 30 Normal [facility] CBC WITH AUTO DIFFERENTIALon 10-13-2024 Erythrocyte distribution width (RBC) [Ratio] 24.3 % High 11.5-15.0 [facility] Comment on above: Performed By: #### L [id number] ####[facility] ([facility])[address] [place] [address] ERYTHROCYTE MEAN CORPUSCULAR HEMOGLOBIN CONCENTRATION (G/DL) BY AUTOMATED 30.5 g/dL Low 32.0-35.[address] [facility] Comment on above: Performed By: #### L [id number] ####[facility] ([facility])[address] [place] [address] Hematocrit (Bld) [Volume fraction] 34.7 % Low 39.0-55.0 [facility] Comment on above: Performed By: #### L [id number] ####[facility] ([facility])[address] [place] [address] Hemoglobin (Bld) [Mass/Vol] 10.6 g/dL Low 13.0-17.0 [facility] Comment on above: Performed By: #### L [id number] ####[facility] ([facility])[address] [place] [address] MCH (RBC) [Entitic mass] 28.1 pg Normal 27.0-33.0 [facility] Comment on above: Performed By: #### L [id number] ####[facility] ([facility])[address] [place] [address] MCV (RBC) [Entitic vol] 92.0 fL Normal 82.0-98.0 [facility] Comment on above: Performed By: #### L [id number] ####[facility] ([facility])[address] [place] [address] NRBC (PER 100 WBCS) BY AUTOMATED COUNT 0.0 % Normal 0 [facility] Comment on above: Performed By: #### L [id number] ####[facility] ([facility])[address] [place] [address] PLATELETS (10*3/UL) IN BLOOD AUTOMATED COUNT 158 10*3/uL Normal 150-400 [facility] Comment on above: Performed By: #### L [id number] ####[facility] ([facility])[address] [place] [address] RBC (Bld) [#/Vol] 3.77 10*6/uL Low 4.20-5.70 [facility] Comment on above: Performed By: #### L [id number] ####[facility] ([facility])[address] [place] [address] WBC (Bld) [#/Vol] 4.58 10*3/uL Normal 4.00-10.60 [facility] Comment on above: Performed By: #### L [id number] ####[facility], [facility] [place] [address] COMPREHENSIVE METABOLIC PANE Aldo 10-13-2024 Albumin [Mass/Vol] 3.5 g/dL Normal 3.5-5.7 [facility] Comment on above: Performed By: #### L [id number] ####[facility] ([facility])[address] [place] [address] ALP [Catalytic activity/Vol] 99 U/L Normal 34-104 [facility] Comment on above: Performed By: #### L [id number] ####[facility] ([facility])[address] [place] [address] ALT [Catalytic activity/Vol] 63 U/L High 7-52 [facility] Comment on above: Performed By: #### L [id number] ####[facility] ([facility])[address] [place] [address] Anion gap [Moles/Vol] 13 mmol/L Normal 7-20 [facility] Comment on above: Performed By: #### L [id number] ####[facility] ([facility])[address] [place] [address] AST [Catalytic activity/Vol] 21 U/L Normal 13-39 [facility] Comment on above: Performed By: #### L [id number] ####[facility] ([facility])[address] [place] [address] Bilirubin [Mass/Vol] 1.4 mg/dL High 0.3-1.0 [facility] Comment on above: Performed By: #### L [id number] ####[facility] ([facility])[address] [place] [address] Calcium [Mass/Vol] 9.0 mg/dL Normal 8.6-10.3 [facility] Comment on above: Performed By: #### L [id number] ####[facility] ([facility])[address] [place] [address] Chloride [Moles/Vol] 100 mmol/L Normal 98-107 [facility] Comment on above: Performed By: #### L [id number] ####[facility] ([facility])[address] [place] [address] CO2 [Moles/Vol] 26 mmol/L Normal 21-31 [facility] Comment on above: Performed By: #### L [id number] ####[facility] ([facility])[address] [place] [address] Creatinine [Mass/Vol] 2.27 mg/dL High 0.70-1.30 [facility] Comment on above: Performed By: #### L [id number] ####[facility] ([facility])[address] [place] [address] GLOMERULAR FILTRATION RATE ML/MIN/1.73 SQ M.PREDICTED 28.1 mL/min/1.73m*2 Low >60.[address] [facility] Comment on above: Result Comment: [facility]???s estimated glomerular filtration rate (eGFR) will [...] of individuals. Performed By: #### L [id number] ####[facility] ([facility])[address] [place] [address] Glucose [Mass/Vol] 89 mg/dL Normal 70-100 [facility] Comment on above: Performed By: #### L [id number] ####[facility] ([facility])[address] [place] [address] Potassium [Moles/Vol] 4.7 mmol/L Normal 3.5-5.1 [facility] Comment on above: Performed By: #### L [id number] ####[facility] ([facility])[address] [place] [address] Protein [Mass/Vol] 6.2 g/dL Normal 6.0-8.3 [facility] Comment on above: Performed By: #### L [id number] ####[facility] ([facility])[address] [place] [address] Sodium [Moles/Vol] 134 mmol/L Low 136-145 [facility] Comment on above: Performed By: #### L [id number] ####[facility] ([facility])[address] [facility] [address] Urea nitrogen [Mass/Vol] 38 mg/dL High 7-25 [facility] Comment on above: Performed By: #### L [id number] ####[facility] ([facility])[address] [place] [address] UREA NITROGEN/CREATININE (MASS RATIO) IN SER/PLAS 16.7 Normal [facility] Comment on above: Performed By: #### L [id number] ####[facility] ([facility])[address] [place] [address] MAGNESIUMon 10-13-2024 Magnesium [Mass/Vol] 2.4 mg/dL Normal 1.9-2.7 [facility] Comment on above: Performed By: #### L [id number] ####[facility] ([facility])[address] [place] [address] MANUAL DIFFERENTIALon 2024 ANISOCYTOSIS PRESENCE IN BLOOD BY LIGHT MICROSCOPY Moderate Normal [facility] Comment on above: Performed By: #### L [id number] ####[facility] ([facility])[address] [place] [address] BASOPHILS (10*3/UL) IN BLOOD BY CALCULATION 0.04 10*3/uL Normal 0.00-0.20 [facility] Comment on above: Performed By: #### L [id number] ####[facility] ([facility])[address] [place] [address] BASOPHILS/100 LEUKOCYTES IN BLOOD BY AUTOMATED COUNT 0.9 % Normal 0.0-1.0 [facility] Comment on above: Performed By: #### L [id number] ####[facility] ([facility])[address] [place] [address] HAMZAH CELLS PRESENCE IN BLOOD BY LIGHT MICROSCOPY Slight Normal [facility] Comment on above: Performed By: #### L [id number] ####[facility] ([facility])[address] [place] [address] ELLIPTOCYTES IN BLOOD BY LIGHT MICROSCOPY Slight Normal [facility] Comment on above: Performed By: #### L [id number] ####[facility] [place] [address] EOSINOPHILS (10*3/UL) IN BLOOD BY CALCULATION 0.15 10*3/uL Normal 0.00-0.50 [facility] Comment on above: Performed By: #### L [id number] ####[facility] ([facility])[address] [place] [address] EOSINOPHILS/100 LEUKOCYTES IN BLOOD BY AUTOMATED COUNT 3.3 % Normal 0.0-6.0 [facility] Comment on above: Performed By: #### L [id number] ####[facility] ([facility])[address] [place] [address] IMMATURE GRANULOCYTES (10*3/UL) IN BLOOD BY CALCULATION 0.02 10*3/uL Normal 0.00-0.20 [facility] Comment on above: Performed By: #### L [id number] ####[facility] ([facility])[address] [place] [address] IMMATURE GRANULOCYTES/100 LEUKOCYTES IN BLOOD BY AUTOMATED COUNT 0.4 % Normal 0.0-1.0 [facility] Comment on above: Performed By: #### L [id number] ####[facility] ([facility])[address] [place], [place] [address] LYMPHOCYTES (10*3/UL) IN BLOOD BY CALCULATION 0.87 10*3/uL Low 1.20-4.00 [facility] Comment on above: Performed By: #### L [id number] ####[facility] ([facility])[address] [place], [place] [address] LYMPHOCYTES/100 LEUKOCYTES IN BLOOD BY AUTOMATED COUNT 19.0 % Low 20.0-45.0 [facility] Comment on above: Performed By: #### L [id number] ####[facility] ([facility])[address] [place] [address] MONOCYTES (10*3/UL) IN BLOOD BY CALCUATION 0.53 10*3/uL Normal 0.10-1.00 [facility] Comment on above: Performed By: #### L [id number] ####[facility] [place] [address] MONOCYTES/100 LEUKOCYTES IN BLOOD BY AUTOMATED COUNT 11.6 % Normal 5.0-12.0 [facility] Comment on above: Performed By: #### L [id number] ####[facility] ([facility])[address] [place] [address] NEUTROPHILS (10*3/UL) IN BLOOD BY CALCULATION 3.0 10*3/uL Normal 1.6-7.6 [facility] Comment on above: Performed By: #### L [id number] ####[facility] ([facility])[address] [place] [address] NEUTROPHILS/100 LEUKOCYTES IN BLOOD BY AUTOMATED COUNT 64.8 % Normal 40.0-72.0 [facility] Comment on above: Performed By: #### L [id number] ####[facility] ([facility])[address] [place] [address] OVALOCYTES PRESENCE IN BLOOD BY LIGHT MICROSCOPY Slight Normal [facility] Comment on above: Performed By: #### L [id number] ####[facility] ([facility])[address] [place] [address] POIKILOCYTOSIS (PRESENCE) IN BLOOD BY LIGHT MICROSCOPY Moderate Normal [facility] Comment on above: Performed By: #### L [id number] ####[facility] ([facility])[address] [place] [address] POLYCHROMASIA IN BLOOD BY LIGHT MICROSCOPY Slight Normal [facility] Comment on above: Performed By: #### L [id number] ####[facility] ([facility])[address] [place] [address] SCHISTOCYTES (PRESENCE) IN BLOOD BY LIGHT MICROSCOPY Slight Normal [facility] Comment on above: Performed By: #### L [id number] ####[facility] ([facility])[address] [place] [address] 30on 10-12-2024 30 Normal [facility] 30 Normal [facility] 30 Normal [facility] CBC WITH AUTO DIFFERENTIALon 10-12-2024 Erythrocyte distribution width (RBC) [Ratio] 24.5 % High 11.5-15.0 [facility] Comment on above: Performed By: #### L [id number] ####[facility] [place] [address] ERYTHROCYTE MEAN CORPUSCULAR HEMOGLOBIN CONCENTRATION (G/DL) BY AUTOMATED 29.6 g/dL Low 32.0-35.[address] [facility] Comment on above: Performed By: #### L [id number] ####[facility] ([facility])[address] [place] [address] Hematocrit (Bld) [Volume fraction] 35.5 % Low 39.0-55.0 [facility] Comment on above: Performed By: #### L [id number] ####[facility] ([facility])[address] [place] [address] Hemoglobin (Bld) [Mass/Vol] 10.5 g/dL Low 13.0-17.0 [facility] Comment on above: Performed By: #### L [id number] ####[facility] ([facility])[address] [place] [address] MCH (RBC) [Entitic mass] 28.2 pg Normal 27.0-33.0 [facility] Comment on above: Performed By: #### L [id number] ####[facility] ([facility])[address] [place] [address] MCV (RBC) [Entitic vol] 95.4 fL Normal 82.0-98.0 [facility] Comment on above: Performed By: #### L [id number] ####[facility] [place] [address] NRBC (PER 100 WBCS) BY AUTOMATED COUNT 0.0 % Normal 0 [facility] Comment on above: Performed By: #### L [id number] ####[facility] [place] [address] PLATELETS (10*3/UL) IN BLOOD AUTOMATED COUNT 152 10*3/uL Normal 150-400 [facility] Comment on above: Performed By: #### L [id number] ####[facility] ([facility])[address] [place] [address] RBC (Bld) [#/Vol] 3.72 10*6/uL Low 4.20-5.70 [facility] Comment on above: Performed By: #### L [id number] ####[facility] ([facility])[address] [place] [address] WBC (Bld) [#/Vol] 4.68 10*3/uL Normal 4.00-10.60 [facility] Comment on above: Performed By: #### L [id number] ####[facility] ([facility])[address] [place] [address] COMPREHENSIVE METABOLIC PANE Aldo 10-12-2024 Albumin [Mass/Vol] 3.5 g/dL Normal 3.5-5.7 [facility] Comment on above: Performed By: #### L [id number] ####[facility] ([facility])[address] [place] [address] ALP [Catalytic activity/Vol] 103 U/L Normal 34-104 [facility] Comment on above: Performed By: #### L [id number] ####[facility] ([facility])[address] [place] [address] ALT [Catalytic activity/Vol] 73 U/L High 7-52 [facility] Comment on above: Performed By: #### L [id number] ####[facility] ([facility])[address] [place] [address] Anion gap [Moles/Vol] 9 mmol/L Normal 7-20 [facility] Comment on above: Performed By: #### L [id number] ####[facility] ([facility])[address] [place] [address] AST [Catalytic activity/Vol] 23 U/L Normal 13-39 [facility] Comment on above: Performed By: #### L [id number] ####[facility] [place] [address] Bilirubin [Mass/Vol] 1.6 mg/dL High 0.3-1.0 [facility] Comment on above: Performed By: #### L [id number] ####[facility] ([facility])[address] [place] [address] Calcium [Mass/Vol] 9.1 mg/dL Normal 8.6-10.3 [facility] Comment on above: Performed By: #### L [id number] ####[facility] [place] [address] Chloride [Moles/Vol] 103 mmol/L Normal 98-107 [facility] Comment on above: Performed By: #### L [id number] ####[facility] [place] [address] CO2 [Moles/Vol] 29 mmol/L Normal 21-31 [facility] Comment on above: Performed By: #### L [id number] ####[facility] [place] [address] Creatinine [Mass/Vol] 2.30 mg/dL High 0.70-1.30 [facility] Comment on above: Performed By: #### L [id number] ####[facility] ([facility])[address] [place] [address] GLOMERULAR FILTRATION RATE ML/MIN/1.73 SQ M.PREDICTED 27.7 mL/min/1.73m*2 Low >60.[address] [facility] Comment on above: Result Comment: [facility]???s estimated glomerular filtration rate (eGFR) will [...] of individuals. Performed By: #### L [id number] ####[facility] [place] [address] Glucose [Mass/Vol] 84 mg/dL Normal 70-100 [facility] Comment on above: Performed By: #### L [id number] ####[facility] ([facility])[address] [place] [address] Potassium [Moles/Vol] 4.8 mmol/L Normal 3.5-5.1 [facility] Comment on above: Performed By: #### L [id number] ####[facility] ([facility])[address] [place] [address] Protein [Mass/Vol] 6.1 g/dL Normal 6.0-8.3 [facility] Comment on above: Performed By: #### L [id number] ####[facility] ([facility])[address] [place] [address] Sodium [Moles/Vol] 136 mmol/L Normal 136-145 [facility] Comment on above: Performed By: #### L [id number] ####[facility] ([facility])[address] [place] [address] Urea nitrogen [Mass/Vol] 38 mg/dL High 7-25 [facility] Comment on above: Performed By: #### L [id number] ####[facility] ([facility])[address] [place] [address] UREA NITROGEN/CREATININE (MASS RATIO) IN SER/PLAS 16.5 Normal [facility] Comment on above: Performed By: #### L [id number] ####[facility] [place] [address] MANUAL DIFFERENTIALon 2024 ANISOCYTOSIS PRESENCE IN BLOOD BY LIGHT MICROSCOPY Moderate Normal [facility] Comment on above: Performed By: #### L [id number] ####[facility] ([facility])[address] [place] [address] BASOPHILS (10*3/UL) IN BLOOD BY CALCULATION 0.04 10*3/uL Normal 0.00-0.20 [facility] Comment on above: Performed By: #### L [id number] ####[facility] ([facility])[address] [place] [address] BASOPHILS/100 LEUKOCYTES IN BLOOD BY AUTOMATED COUNT 0.9 % Normal 0.0-1.0 [facility] Comment on above: Performed By: #### L [id number] ####[facility] ([facility])[address] [place] [address] HAMZAH CELLS PRESENCE IN BLOOD BY LIGHT MICROSCOPY Slight Normal [facility] Comment on above: Performed By: #### L [id number] ####[facility] ([facility])[address] [place] [address] ELLIPTOCYTES IN BLOOD BY LIGHT MICROSCOPY Slight Normal [facility] Comment on above: Performed By: #### L [id number] ####[facility] ([facility])[address] [place] [address] EOSINOPHILS (10*3/UL) IN BLOOD BY CALCULATION 0.13 10*3/uL Normal 0.00-0.50 [facility] Comment on above: Performed By: #### L [id number] ####[facility] ([facility])[address] [place] [address] EOSINOPHILS/100 LEUKOCYTES IN BLOOD BY AUTOMATED COUNT 2.8 % Normal 0.0-6.0 [facility] Comment on above: Performed By: #### L [id number] ####[facility] ([facility])[address] [place] [address] IMMATURE GRANULOCYTES (10*3/UL) IN BLOOD BY CALCULATION 0.03 10*3/uL Normal 0.00-0.20 [facility] Comment on above: Performed By: #### L [id number] ####[facility] ([facility])[address] [place] [address] IMMATURE GRANULOCYTES/100 LEUKOCYTES IN BLOOD BY AUTOMATED COUNT 0.6 % Normal 0.0-1.0 [facility] Comment on above: Performed By: #### L [id number] ####[facility] [place] [address] LYMPHOCYTES (10*3/UL) IN BLOOD BY CALCULATION 0.72 10*3/uL Low 1.20-4.00 [facility] Comment on above: Performed By: #### L [id number] ####[facility] ([facility])[address] [place] [address] LYMPHOCYTES/100 LEUKOCYTES IN BLOOD BY AUTOMATED COUNT 15.4 % Low 20.0-45.0 [facility] Comment on above: Performed By: #### L [id number] ####[facility] ([facility])[address] [place] [address] MONOCYTES (10*3/UL) IN BLOOD BY CALCUATION 0.51 10*3/uL Normal 0.10-1.00 [facility] Comment on above: Performed By: #### L [id number] ####[facility] ([facility])[address] [place] [address] MONOCYTES/100 LEUKOCYTES IN BLOOD BY AUTOMATED COUNT 10.9 % Normal 5.0-12.0 [facility] Comment on above: Performed By: #### L [id number] ####[facility] ([facility])[address] [place] [address] NEUTROPHILS (10*3/UL) IN BLOOD BY CALCULATION 3.2 10*3/uL Normal 1.6-7.6 [facility] Comment on above: Performed By: #### L [id number] ####[facility] ([facility])[address] [place] [address] NEUTROPHILS/100 LEUKOCYTES IN BLOOD BY AUTOMATED COUNT 69.4 % Normal 40.0-72.0 [facility] Comment on above: Performed By: #### L [id number] ####[facility] ([facility])[address] [place] [address] OVALOCYTES PRESENCE IN BLOOD BY LIGHT MICROSCOPY Slight Normal [facility] Comment on above: Performed By: #### L [id number] ####[facility] [place] [address] POIKILOCYTOSIS (PRESENCE) IN BLOOD BY LIGHT MICROSCOPY Moderate Normal [facility] Comment on above: Performed By: #### L [id number] ####[facility] ([facility])[address] [place] [address] POLYCHROMASIA IN BLOOD BY LIGHT MICROSCOPY Slight Normal [facility] Comment on above: Performed By: #### L [id number] ####[facility] ([facility])[address] [place] [address] SCHISTOCYTES (PRESENCE) IN BLOOD BY LIGHT MICROSCOPY Slight Normal [facility] Comment on above: Performed By: #### L [id number] ####[facility] [place] [address] TARGET CELLS IN BLOOD BY LIGHT MICROSCOPY Slight Normal [facility] Comment on above: Performed By: #### L [id number] ####[facility] ([facility])[address] [place] [address] 30on 10-11-2024 30 Normal [facility] 30 Normal [facility] CBC WITH AUTO DIFFERENTIALon 10-11-2024 Erythrocyte distribution width (RBC) [Ratio] 24.5 % High 11.5-15.0 [facility] Comment on above: Performed By: #### L [id number] ####[facility] ([facility])[address] [place] [address] ERYTHROCYTE MEAN CORPUSCULAR HEMOGLOBIN CONCENTRATION (G/DL) BY AUTOMATED 30.2 g/dL Low 32.0-35.[address] [facility] Comment on above: Performed By: #### L [id number] ####[facility] ([facility])[address] [place] [address] Hematocrit (Bld) [Volume fraction] 34.1 % Low 39.0-55.0 [facility] Comment on above: Performed By: #### L [id number] ####[facility] ([facility])[address] [place] [address] Hemoglobin (Bld) [Mass/Vol] 10.3 g/dL Low 13.0-17.0 [facility] Comment on above: Performed By: #### L [id number] ####[facility] ([facility])[address] [place] [address] MCH (RBC) [Entitic mass] 28.4 pg Normal 27.0-33.0 [facility] Comment on above: Performed By: #### L [id number] ####[facility] ([facility])[address] [place] [address] MCV (RBC) [Entitic vol] 93.9 fL Normal 82.0-98.0 [facility] Comment on above: Performed By: #### L [id number] ####[facility] ([facility])[address] [place] [address] NRBC (PER 100 WBCS) BY AUTOMATED COUNT 0.0 % Normal 0 [facility] Comment on above: Performed By: #### L [id number] ####[facility] ([facility])[address] [place] [address] PLATELETS (10*3/UL) IN BLOOD AUTOMATED COUNT 159 10*3/uL Normal 150-400 [facility] Comment on above: Performed By: #### L [id number] ####[facility] ([facility])[address] [place] [address] RBC (Bld) [#/Vol] 3.63 10*6/uL Low 4.20-5.70 [facility] Comment on above: Performed By: #### L [id number] ####[facility] ([facility])[address] [place] [address] WBC (Bld) [#/Vol] 5.13 10*3/uL Normal 4.00-10.60 [facility] Comment on above: Performed By: #### L [id number] ####[facility] ([facility])[address] [place] [address] COMPREHENSIVE METABOLIC PANE Aldo 10-11-2024 Albumin [Mass/Vol] 3.4 g/dL Low 3.5-5.7 [facility] Comment on above: Performed By: #### L [id number] ####[facility] ([facility])[address] [place] [address] ALP [Catalytic activity/Vol] 109 U/L High 34-104 [facility] Comment on above: Performed By: #### L [id number] ####[facility] ([facility])[address] [place] [address] ALT [Catalytic activity/Vol] 87 U/L High 7-52 [facility] Comment on above: Performed By: #### L [id number] ####[facility] ([facility])[address] [place] [address] Anion gap [Moles/Vol] 11 mmol/L Normal 7-20 [facility] Comment on above: Performed By: #### L [id number] ####[facility] ([facility])[address] [place] [address] AST [Catalytic activity/Vol] 33 U/L Normal 13-39 [facility] Comment on above: Performed By: #### L [id number] ####[facility] ([facility])[address] [place] [address] Bilirubin [Mass/Vol] 1.6 mg/dL High 0.3-1.0 [facility] Comment on above: Performed By: #### L [id number] ####[facility] ([facility])[address] [place] [address] Calcium [Mass/Vol] 8.9 mg/dL Normal 8.6-10.3 [facility] Comment on above: Performed By: #### L [id number] ####[facility] ([facility])[address] [place] [address] Chloride [Moles/Vol] 102 mmol/L Normal 98-107 [facility] Comment on above: Performed By: #### L [id number] ####[facility] ([facility])[address] [place] [address] CO2 [Moles/Vol] 26 mmol/L Normal 21-31 [facility] Comment on above: Performed By: #### L [id number] ####[facility] ([facility])[address] [place] [address] Creatinine [Mass/Vol] 2.17 mg/dL High 0.70-1.30 [facility] Comment on above: Performed By: #### L [id number] ####[facility] ([facility])[address] [place] [address] GLOMERULAR FILTRATION RATE ML/MIN/1.73 SQ M.PREDICTED 29.7 mL/min/1.73m*2 Low >60.[address] [facility] Comment on above: Result Comment: [facility]???s estimated glomerular filtration rate (eGFR) will [...] of individuals. Performed By: #### L [id number] ####[facility] ([facility])[address] [place] [address] Glucose [Mass/Vol] 90 mg/dL Normal 70-100 [facility] Comment on above: Performed By: #### L [id number] ####[facility] ([facility])[address] [place] [address] Potassium [Moles/Vol] 5.1 mmol/L Normal 3.5-5.1 [facility] Comment on above: Performed By: #### L [id number] ####[facility] ([facility])[address] [place] [address] Protein [Mass/Vol] 6.1 g/dL Normal 6.0-8.3 [facility] Comment on above: Performed By: #### L [id number] ####[facility] ([facility])[address] [place] [address] Sodium [Moles/Vol] 134 mmol/L Low 136-145 [facility] Comment on above: Performed By: #### L [id number] ####[facility] ([facility])[address] [place] [address] Urea nitrogen [Mass/Vol] 36 mg/dL High 7-25 [facility] Comment on above: Performed By: #### L [id number] ####[facility] ([facility])[address] [place] [address] UREA NITROGEN/CREATININE (MASS RATIO) IN SER/PLAS 16.6 Normal [facility] Comment on above: Performed By: #### L [id number] ####[facility] ([facility])[address] [place] [address] MANUAL DIFFERENTIALon 2024 ACANTHOCYTES PRESENCE IN BLOOD BY LIGHT MICROSCOPY Slight Normal [facility] Comment on above: Performed By: #### L [id number] ####[facility] ([facility])[address] [place] [address] ANISOCYTOSIS PRESENCE IN BLOOD BY LIGHT MICROSCOPY Moderate Normal [facility] Comment on above: Performed By: #### L [id number] ####[facility] ([facility])[address] [place] [address] BASOPHILS (10*3/UL) IN BLOOD BY CALCULATION 0.03 10*3/uL Normal 0.00-0.20 [facility] Comment on above: Performed By: #### L [id number] ####[facility] ([facility])[address] [place] [address] BASOPHILS/100 LEUKOCYTES IN BLOOD BY AUTOMATED COUNT 0.6 % Normal 0.0-1.0 [facility] Comment on above: Performed By: #### L [id number] ####[facility] ([facility])[address] [place] [address] ELLIPTOCYTES IN BLOOD BY LIGHT MICROSCOPY Slight Normal [facility] Comment on above: Performed By: #### L [id number] ####[facility] ([facility])[address] [place] [address] EOSINOPHILS (10*3/UL) IN BLOOD BY CALCULATION 0.16 10*3/uL Normal 0.00-0.50 [facility] Comment on above: Performed By: #### L [id number] ####[facility] ([facility])[address] [place] [address] EOSINOPHILS/100 LEUKOCYTES IN BLOOD BY AUTOMATED COUNT 3.1 % Normal 0.0-6.0 [facility] Comment on above: Performed By: #### L [id number] ####[facility] ([facility])[address] [place] [address] IMMATURE GRANULOCYTES (10*3/UL) IN BLOOD BY CALCULATION 0.06 10*3/uL Normal 0.00-0.20 [facility] Comment on above: Performed By: #### L [id number] ####[facility] ([facility])[address] [place] [address] IMMATURE GRANULOCYTES/100 LEUKOCYTES IN BLOOD BY AUTOMATED COUNT 1.2 % High 0.0-1.0 [facility] Comment on above: Performed By: #### L [id number] ####[facility] ([facility])[address] [place] [address] LYMPHOCYTES (10*3/UL) IN BLOOD BY CALCULATION 0.82 10*3/uL Low 1.20-4.00 [facility] Comment on above: Performed By: #### L [id number] ####[facility] ([facility])[address] [place] [address] LYMPHOCYTES/100 LEUKOCYTES IN BLOOD BY AUTOMATED COUNT 16.0 % Low 20.0-45.0 [facility] Comment on above: Performed By: #### L [id number] ####[facility] ([facility])[address] [place] [address] MONOCYTES (10*3/UL) IN BLOOD BY CALCUATION 0.60 10*3/uL Normal 0.10-1.00 [facility] Comment on above: Performed By: #### L [id number] ####[facility] ([facility] [place] [address] MONOCYTES/100 LEUKOCYTES IN BLOOD BY AUTOMATED COUNT 11.7 % Normal 5.0-12.0 [facility] Comment on above: Performed By: #### L [id number] ####[facility] ([facility])[address] [place] [address] NEUTROPHILS (10*3/UL) IN BLOOD BY CALCULATION 3.5 10*3/uL Normal 1.6-7.6 [facility] Comment on above: Performed By: #### L [id number] ####[facility] ([facility])[address] [place] [address] NEUTROPHILS/100 LEUKOCYTES IN BLOOD BY AUTOMATED COUNT 67.4 % Normal 40.0-72.0 [facility] Comment on above: Performed By: #### L [id number] ####[facility] ([facility])[address] [place] [address] OVALOCYTES PRESENCE IN BLOOD BY LIGHT MICROSCOPY Slight Normal [facility] Comment on above: Performed By: #### L [id number] ####[facility] ([facility])[address] [place] [address] POIKILOCYTOSIS (PRESENCE) IN BLOOD BY LIGHT MICROSCOPY Moderate Normal [facility] Comment on above: Performed By: #### L [id number] ####[facility] ([facility])[address] [place] [address] POLYCHROMASIA IN BLOOD BY LIGHT MICROSCOPY Slight Normal [facility] Comment on above: Performed By: #### L [id number] ####[facility] ([facility])[address] [place] [address] SCHISTOCYTES (PRESENCE) IN BLOOD BY LIGHT MICROSCOPY Slight Normal [facility] Comment on above: Performed By: #### L [id number] ####[facility] ([facility])[address] [place] [address] TARGET CELLS IN BLOOD BY LIGHT MICROSCOPY Slight Normal [facility] Comment on above: Performed By: #### L [id number] ####[facility] ([facility])[address] [place] [address] POTASSIUMon 10-11-2024 Potassium [Moles/Vol] 4.5 mmol/L Normal 3.5-5.1 [facility] Comment on above: Performed By: #### L [id number] ####[facility] ([facility] [place] [address] 30on 10-10-2024 30 Normal [facility] 30 Normal [facility] 30 Normal [facility] BASIC METABOLIC PANELon 09-17 Anion gap [Moles/Vol] 10 mmol/L Normal 7-20 [facility] Comment on above: Performed By: #### L [id number] ####[facility] ([facility])[address] [place] [address] Calcium [Mass/Vol] 9.1 mg/dL Normal 8.6-10.3 [facility] Comment on above: Performed By: #### L [id number] ####[facility] ([facility])[address] [place] [address] Chloride [Moles/Vol] 102 mmol/L Normal 98-107 [facility] Comment on above: Performed By: #### L [id number] ####[facility] ([facility])[address] [place] [address] CO2 [Moles/Vol] 28 mmol/L Normal 21-31 [facility] Comment on above: Performed By: #### L [id number] ####[facility] ([facility])[address] [place] [address] Creatinine [Mass/Vol] 1.98 mg/dL High 0.70-1.30 [facility] Comment on above: Performed By: #### L [id number] ####[facility] ([facility])[address] [place] [address] GLOMERULAR FILTRATION RATE ML/MIN/1.73 SQ M.PREDICTED 33.1 mL/min/1.73m*2 Low >60.[address] [facility] Comment on above: Result Comment: [facility]???s estimated glomerular filtration rate (eGFR) will [...] of individuals. Performed By: #### L [id number] ####[facility] ([facility])[address] [place] [address] Glucose [Mass/Vol] 92 mg/dL Normal 70-100 [facility] Comment on above: Performed By: #### L [id number] ####[facility] ([facility])[address] [place] [address] Potassium [Moles/Vol] 4.5 mmol/L Normal 3.5-5.1 [facility] Comment on above: Performed By: #### L [id number] ####[facility] ([facility])[address] [place] [address] Sodium [Moles/Vol] 135 mmol/L Low 136-145 [facility] Comment on above: Performed By: #### L [id number] ####[facility] ([facility])[address] [place] [address] Urea nitrogen [Mass/Vol] 35 mg/dL High 7-25 [facility] Comment on above: Performed By: #### L [id number] ####[facility] ([facility])[address] [place] [address] UREA NITROGEN/CREATININE (MASS RATIO) IN SER/PLAS 17.7 Normal [facility] Comment on above: Performed By: #### L [id number] ####[facility] ([facility])[address] [place] [address] CBC WITH AUTO DIFFERENTIALon 10-10-2024 Erythrocyte distribution width (RBC) [Ratio] 24.3 % High 11.5-15.0 [facility] Comment on above: Performed By: #### L [id number] ####[facility] ([facility] [place] [address] ERYTHROCYTE MEAN CORPUSCULAR HEMOGLOBIN CONCENTRATION (G/DL) BY AUTOMATED 31.0 g/dL Low 32.0-35.[address] [facility] Comment on above: Performed By: #### L [id number] ####[facility] ([facility])[address] [place] [address] Hematocrit (Bld) [Volume fraction] 32.3 % Low 39.0-55.0 [facility] Comment on above: Performed By: #### L [id number] ####[facility] ([facility])[address] [place] [address] Hemoglobin (Bld) [Mass/Vol] 10.0 g/dL Low 13.0-17.0 [facility] Comment on above: Performed By: #### L [id number] ####[facility] ([facility])[address] [place] [address] MCH (RBC) [Entitic mass] 28.1 pg Normal 27.0-33.0 [facility] Comment on above: Performed By: #### L [id number] ####[facility] ([facility])[address] [place] [address] MCV (RBC) [Entitic vol] 90.7 fL Normal 82.0-98.0 [facility] Comment on above: Performed By: #### L [id number] ####[facility] ([facility])[address] [place] [address] NRBC (PER 100 WBCS) BY AUTOMATED COUNT 0.0 % Normal 0 [facility] Comment on above: Performed By: #### L [id number] ####[facility] ([facility])[address] [place] [address] PLATELETS (10*3/UL) IN BLOOD AUTOMATED COUNT 134 10*3/uL Low 150-400 [facility] Comment on above: Performed By: #### L [id number] ####[facility] ([facility])[address] [place] [address] RBC (Bld) [#/Vol] 3.56 10*6/uL Low 4.20-5.70 [facility] Comment on above: Performed By: #### L [id number] ####[facility] ([facility])[address] [place] [address] WBC (Bld) [#/Vol] 5.50 10*3/uL Normal 4.00-10.60 [facility] Comment on above: Performed By: #### L [id number] ####[facility] ([facility])[address] [place] [address] HEPATIC FUNCTION PANELon Albumin [Mass/Vol] 3.4 g/dL Low 3.5-5.7 [facility] Comment on above: Performed By: #### L [id number] ####[facility] ([facility])[address] [place] [address] ALP [Catalytic activity/Vol] 109 U/L High 34-104 [facility] Comment on above: Performed By: #### L [id number] ####[facility] ([facility])[address] [place] [address] ALT [Catalytic activity/Vol] 106 U/L High 7-52 [facility] Comment on above: Performed By: #### L [id number] ####[facility] ([facility])[address] [place] [address] AST [Catalytic activity/Vol] 32 U/L Normal 13-39 [facility] Comment on above: Performed By: #### L [id number] ####[facility] ([facility])[address] [place] [address] Bilirubin [Mass/Vol] 1.7 mg/dL High 0.3-1.0 [facility] Comment on above: Performed By: #### L [id number] ####[facility] ([facility])[address] [place] [address] Magnesium [Mass/Vol] 0.6 mg/dL High 0-0.2 [facility] Comment on above: Performed By: #### L [id number] ####[facility] ([facility])[address] [place] [address] Protein [Mass/Vol] 6.0 g/dL Normal 6.0-8.3 [facility] Comment on above: Performed By: #### L [id number] ####[facility] ([facility])[address] [place] [address] MANUAL DIFFERENTIALon 2024 ACANTHOCYTES PRESENCE IN BLOOD BY LIGHT MICROSCOPY Slight Normal [facility] Comment on above: Performed By: #### L [id number] ####[facility] ([facility])[address] [place] [address] ANISOCYTOSIS PRESENCE IN BLOOD BY LIGHT MICROSCOPY Moderate Normal [facility] Comment on above: Performed By: #### L [id number] ####[facility] ([facility])[address] [place] [address] BASOPHILS (10*3/UL) IN BLOOD BY CALCULATION 0.04 10*3/uL Normal 0.00-0.20 [facility] Comment on above: Performed By: #### L [id number] ####[facility] ([facility])[address] [place] [address] BASOPHILS/100 LEUKOCYTES IN BLOOD BY AUTOMATED COUNT 0.7 % Normal 0.0-1.0 [facility] Comment on above: Performed By: #### L [id number] ####[facility] ([facility])[address] [place] [address] ELLIPTOCYTES IN BLOOD BY LIGHT MICROSCOPY Slight Normal [facility] Comment on above: Performed By: #### L [id number] ####[facility] ([facility])[address] [place] [address] EOSINOPHILS (10*3/UL) IN BLOOD BY CALCULATION 0.15 10*3/uL Normal 0.00-0.50 [facility] Comment on above: Performed By: #### L [id number] ####[facility] ([facility])[address] [place] [address] EOSINOPHILS/100 LEUKOCYTES IN BLOOD BY AUTOMATED COUNT 2.7 % Normal 0.0-6.0 [facility] Comment on above: Performed By: #### L [id number] ####[facility] ([facility])[address] [place] [address] HYPOCHROMIA (PRESENCE) IN BLOOD BY LIGHT MICROSCOPY Slight Normal [facility] Comment on above: Performed By: #### L [id number] ####[facility] ([facility])[address] [place] [address] IMMATURE GRANULOCYTES (10*3/UL) IN BLOOD BY CALCULATION 0.03 10*3/uL Normal 0.00-0.20 [facility] Comment on above: Performed By: #### L [id number] ####[facility] ([facility])[address] [place] [address] IMMATURE GRANULOCYTES/100 LEUKOCYTES IN BLOOD BY AUTOMATED COUNT 0.5 % Normal 0.0-1.0 [facility] Comment on above: Performed By: #### L [id number] ####[facility] ([facility])[address] [place] [address] LYMPHOCYTES (10*3/UL) IN BLOOD BY CALCULATION 0.76 10*3/uL Low 1.20-4.00 [facility] Comment on above: Performed By: #### L [id number] ####[facility] ([facility])[address] [place] [address] LYMPHOCYTES/100 LEUKOCYTES IN BLOOD BY AUTOMATED COUNT 13.8 % Low 20.0-45.0 [facility] Comment on above: Performed By: #### L [id number] ####[facility] ([facility])[address] [place] [address] MONOCYTES (10*3/UL) IN BLOOD BY CALCUATION 0.57 10*3/uL Normal 0.10-1.00 [facility] Comment on above: Performed By: #### L [id number] ####[facility] ([facility])[address] [place] [address] MONOCYTES/100 LEUKOCYTES IN BLOOD BY AUTOMATED COUNT 10.4 % Normal 5.0-12.0 [facility] Comment on above: Performed By: #### L [id number] ####[facility] ([facility])[address] [place] [address] NEUTROPHILS (10*3/UL) IN BLOOD BY CALCULATION 4.0 10*3/uL Normal 1.6-7.6 [facility] Comment on above: Performed By: #### L [id number] ####[facility] ([facility])[address] [place] [address] NEUTROPHILS/100 LEUKOCYTES IN BLOOD BY AUTOMATED COUNT 71.9 % Normal 40.0-72.0 [facility] Comment on above: Performed By: #### L [id number] ####[facility] ([facility])[address] [place] [address] OVALOCYTES PRESENCE IN BLOOD BY LIGHT MICROSCOPY Slight Normal [facility] Comment on above: Performed By: #### L [id number] ####[facility] ([facility])[address] [place] [address] POIKILOCYTOSIS (PRESENCE) IN BLOOD BY LIGHT MICROSCOPY Moderate Normal [facility] Comment on above: Performed By: #### L [id number] ####[facility] ([facility])[address] [place] [address] POLYCHROMASIA IN BLOOD BY LIGHT MICROSCOPY Slight Normal [facility] Comment on above: Performed By: #### L [id number] ####[facility] ([facility])[address] [place] [address] SCHISTOCYTES (PRESENCE) IN BLOOD BY LIGHT MICROSCOPY Slight Normal [facility] Comment on above: Performed By: #### L [id number] ####[facility] ([facility])[address] [place] [address] TARGET CELLS IN BLOOD BY LIGHT MICROSCOPY Slight Normal [facility] Comment on above: Performed By: #### L [id number] ####[facility] ([facility])[address] [place] [address] 30on 10-09-2024 30 Normal [facility] 30 Normal [facility] 30 Normal [facility] CBC WITH AUTO DIFFERENTIALon 10-09-2024 Erythrocyte distribution width (RBC) [Ratio] 24.5 % High 11.5-15.0 [facility] Comment on above: Performed By: #### L [id number] ####[facility] [place] [address] ERYTHROCYTE MEAN CORPUSCULAR HEMOGLOBIN CONCENTRATION (G/DL) BY AUTOMATED 30.5 g/dL Low 32.0-35.[address] [facility] Comment on above: Performed By: #### L [id number] ####[facility] [place] [address] Hematocrit (Bld) [Volume fraction] 34.7 % Low 39.0-55.0 [facility] Comment on above: Performed By: #### L [id number] ####[facility] [place] [address] Hemoglobin (Bld) [Mass/Vol] 10.6 g/dL Low 13.0-17.0 [facility] Comment on above: Performed By: #### L [id number] ####[facility] ([facility])[address] [place] [address] MCH (RBC) [Entitic mass] 28.1 pg Normal 27.0-33.0 [facility] Comment on above: Performed By: #### L [id number] ####[facility] ([facility])[address] [place] [address] MCV (RBC) [Entitic vol] 92.0 fL Normal 82.0-98.0 [facility] Comment on above: Performed By: #### L [id number] ####[facility] ([facility])[address] [facility] [address] NRBC (PER 100 WBCS) BY AUTOMATED COUNT 0.0 % Normal 0 [facility] Comment on above: Performed By: #### L [id number] ####[facility] ([facility])[address] [place] [address] PLATELETS (10*3/UL) IN BLOOD AUTOMATED COUNT 117 10*3/uL Low 150-400 [facility] Comment on above: Performed By: #### L [id number] ####[facility] ([facility])[address] [place] [address] RBC (Bld) [#/Vol] 3.77 10*6/uL Low 4.20-5.70 [facility] Comment on above: Performed By: #### L [id number] ####[facility] ([facility])[address] [place] [address] WBC (Bld) [#/Vol] 4.93 10*3/uL Normal 4.00-10.60 [facility] Comment on above: Performed By: #### L [id number] ####[facility] ([facility])[address] [place] [address] MANUAL DIFFERENTIALon 2024 ANISOCYTOSIS PRESENCE IN BLOOD BY LIGHT MICROSCOPY Moderate Normal [facility] Comment on above: Performed By: #### L [id number] ####[facility] ([facility])[address] [place] [address] BASOPHILS (10*3/UL) IN BLOOD BY CALCULATION 0.03 10*3/uL Normal 0.00-0.20 [facility] Comment on above: Performed By: #### L [id number] ####[facility] ([facility])[address] [place] [address] BASOPHILS/100 LEUKOCYTES IN BLOOD BY AUTOMATED COUNT 0.6 % Normal 0.0-1.0 [facility] Comment on above: Performed By: #### L [id number] ####[facility] ([facility])[address] [place] [address] ELLIPTOCYTES IN BLOOD BY LIGHT MICROSCOPY Slight Normal [facility] Comment on above: Performed By: #### L [id number] ####[facility] ([facility])[address] [place] [address] EOSINOPHILS (10*3/UL) IN BLOOD BY CALCULATION 0.15 10*3/uL Normal 0.00-0.50 [facility] Comment on above: Performed By: #### L [id number] ####[facility] ([facility])[address] [place] [address] EOSINOPHILS/100 LEUKOCYTES IN BLOOD BY AUTOMATED COUNT 3.0 % Normal 0.0-6.0 [facility] Comment on above: Performed By: #### L [id number] ####[facility] ([facility])[address] [place] [address] HYPOCHROMIA (PRESENCE) IN BLOOD BY LIGHT MICROSCOPY Slight Normal [facility] Comment on above: Performed By: #### L [id number] ####[facility] ([facility])[address] [place] [address] IMMATURE GRANULOCYTES (10*3/UL) IN BLOOD BY CALCULATION 0.05 10*3/uL Normal 0.00-0.20 [facility] Comment on above: Performed By: #### L [id number] ####[facility] ([facility])[address] [facility] [place] [address] IMMATURE GRANULOCYTES/100 LEUKOCYTES IN BLOOD BY AUTOMATED COUNT 1.0 % Normal 0.0-1.0 [facility] Comment on above: Performed By: #### L [id number] ####[facility] ([facility])[address] [place] [address] LYMPHOCYTES (10*3/UL) IN BLOOD BY CALCULATION 0.83 10*3/uL Low 1.20-4.00 [facility] Comment on above: Performed By: #### L [id number] ####[facility] ([facility] [facility] [facility] [address] LYMPHOCYTES/100 LEUKOCYTES IN BLOOD BY AUTOMATED COUNT 16.8 % Low 20.0-45.0 [facility] Comment on above: Performed By: #### L [id number] ####[facility] ([facility] [facility] [place] [address] MONOCYTES (10*3/UL) IN BLOOD BY CALCUATION 0.48 10*3/uL Normal 0.10-1.00 [facility] Comment on above: Performed By: #### L [id number] ####[facility] ([facility])[address] [place] [address] MONOCYTES/100 LEUKOCYTES IN BLOOD BY AUTOMATED COUNT 9.7 % Normal 5.0-12.0 [facility] Comment on above: Performed By: #### L [id number] ####[facility] ([facility])[address] [place] [address] NEUTROPHILS (10*3/UL) IN BLOOD BY CALCULATION 3.4 10*3/uL Normal 1.6-7.6 [facility] Comment on above: Performed By: #### L [id number] ####[facility] ([facility])[address] [place] [address] NEUTROPHILS/100 LEUKOCYTES IN BLOOD BY AUTOMATED COUNT 68.9 % Normal 40.0-72.0 [facility] Comment on above: Performed By: #### L [id number] ####[facility] ([facility])[address] [place] [address] OVALOCYTES PRESENCE IN BLOOD BY LIGHT MICROSCOPY Slight Normal [facility] Comment on above: Performed By: #### L [id number] ####[facility] ([facility])[address] [place] [address] POIKILOCYTOSIS (PRESENCE) IN BLOOD BY LIGHT MICROSCOPY Moderate Normal [facility] Comment on above: Performed By: #### L [id number] ####[facility] ([facility])[address] [place] [address] POLYCHROMASIA IN BLOOD BY LIGHT MICROSCOPY Slight Normal [facility] Comment on above: Performed By: #### L [id number] ####[facility] ([facility])[address] [place] [address] SCHISTOCYTES (PRESENCE) IN BLOOD BY LIGHT MICROSCOPY Slight Normal [facility] Comment on above: Performed By: #### L [id number] ####[facility] ([facility])[address] [place] [address] TARGET CELLS IN BLOOD BY LIGHT MICROSCOPY Slight [facility] Comment on above: Performed By: #### L [id number] ####[facility] ([facility])[address] [place] [address] NURSNOTEon 10-09-2024 NURSNOTE Patient and daughter s have agreed to restart the Mexiletine at this time. This RN notified Cardiology. [facility] 30on 10-08-2024 30 [facility] 30 [facility] 30 [facility] 30 [facility] ANTI-XA (HEPARIN LEVEL)on HEPARIN UNFRACTIONATED (U/ML) IN PPP BY CHROMOGENIC METHOD 0.40 IU/mL Normal 0.3-0.7 [facility] Comment on above: Result Comment: [place] roxaban and Apixaban will interfere with the anti Xa assay used to monitor UFH and LMWH. Performed By: #### L [id number] ####[facility] ([facility])[address] [place] [address] CBC WITH AUTO DIFFERENTIALon 10-08-2024 Erythrocyte distribution width (RBC) [Ratio] 24.0 % High 11.5-15.0 [facility] Comment on above: Performed By: #### L [id number] ####[facility] ([facility])[address] [place] [address] ERYTHROCYTE MEAN CORPUSCULAR HEMOGLOBIN CONCENTRATION (G/DL) BY AUTOMATED 30.4 g/dL Low 32.0-35.[address] [facility] Comment on above: Performed By: #### L [id number] ####[facility] ([facility])[address] [place] [address] Hematocrit (Bld) [Volume fraction] 34.5 % Low 39.0-55.0 [facility] Comment on above: Performed By: #### L [id number] ####[facility] ([facility] [place] [address] Hemoglobin (Bld) [Mass/Vol] 10.5 g/dL Low 13.0-17.0 [facility] Comment on above: Performed By: #### L [id number] ####[facility] ([facility])[address] [place] [address] IMMATURE PLATELET FRACTION % 3.0 % Normal 0.8-6.3 [facility] Comment on above: Performed By: #### L [id number] ####[facility] ([facility])[address] [place] [address] MCH (RBC) [Entitic mass] 28.5 pg Normal 27.0-33.0 [facility] Comment on above: Performed By: #### L [id number] ####[facility] ([facility])[address] [place] [address] MCV (RBC) [Entitic vol] 93.5 fL Normal 82.0-98.0 [facility] Comment on above: Performed By: #### L [id number] ####[facility] ([facility])[address] [place] [address] NRBC (PER 100 WBCS) BY AUTOMATED COUNT 0.0 % Normal 0 [facility] Comment on above: Performed By: #### L [id number] ####[facility] ([facility])[address] [place] [address] PLATELETS (10*3/UL) IN BLOOD AUTOMATED COUNT 104 10*3/uL Low 150-400 [facility] Comment on above: Performed By: #### L [id number] ####[facility] ([facility])[address] [place] [address] RBC (Bld) [#/Vol] 3.69 10*6/uL Low 4.20-5.70 [facility] Comment on above: Performed By: #### L [id number] ####[facility] ([facility])[address] [place] [address] WBC (Bld) [#/Vol] 5.84 10*3/uL Normal 4.00-10.60 [facility] Comment on above: Performed By: #### L [id number] ####[facility] ([facility])[address] [place] [address] CNPNon 10-08-2024 CNPN Normal [facility] METABOLIC PANE [place] 10-08-2024 Albumin [Mass/Vol] 3.6 g/dL Normal 3.5-5.7 [facility] Comment on above: Performed By: #### L [id number] ####[facility] ([facility])[address] [place] [address] ALP [Catalytic activity/Vol] 110 U/L High 34-104 [facility] Comment on above: Performed By: #### L [id number] ####[facility] ([facility])[address] [place] [address] ALT [Catalytic activity/Vol] 161 U/L High 7-52 [facility] Comment on above: Performed By: #### L [id number] ####[facility] ([facility])[address] [place] [address] Anion gap [Moles/Vol] 11 mmol/L Normal 7-20 [facility] Comment on above: Performed By: #### L [id number] ####[facility] ([facility])[address] [place] [address] AST [Catalytic activity/Vol] 47 U/L High 13-39 [facility] Comment on above: Performed By: #### L [id number] ####[facility] ([facility])[address] [place] [address] Bilirubin [Mass/Vol] 1.7 mg/dL High 0.3-1.0 [facility] Comment on above: Performed By: #### L [id number] ####[facility] ([facility])[address] [place] [address] Calcium [Mass/Vol] 9.0 mg/dL Normal 8.6-10.3 [facility] Comment on above: Performed By: #### L [id number] ####[facility] ([facility])[address] [place] [address] Chloride [Moles/Vol] 100 mmol/L Normal 98-107 [facility] Comment on above: Performed By: #### L [id number] ####[facility] ([facility])[address] [place] [address] CO2 [Moles/Vol] 28 mmol/L Normal 21-31 [facility] Comment on above: Performed By: #### L [id number] ####[facility] ([facility])[address] [place] [address] Creatinine [Mass/Vol] 1.82 mg/dL High 0.70-1.30 [facility] Comment on above: Performed By: #### L [id number] ####[facility] ([facility])[address] [place] [address] GLOMERULAR FILTRATION RATE ML/MIN/1.73 SQ M.PREDICTED 36.6 mL/min/1.73m*2 Low >60.[address] [facility] Comment on above: Result Comment: [facility]???s estimated glomerular filtration rate (eGFR) will [...] of individuals. Performed By: #### L [id number] ####[facility] ([facility])[address] [place] [address] Glucose [Mass/Vol] 83 mg/dL Normal 70-100 [facility] Comment on above: Performed By: #### L [id number] ####[facility] ([facility])[address] [place] [address] Potassium [Moles/Vol] 4.6 mmol/L Normal 3.5-5.1 [facility] Comment on above: Performed By: #### L [id number] ####[facility] ([facility] [place] [address] Protein [Mass/Vol] 6.1 g/dL Normal 6.0-8.3 [facility] Comment on above: Performed By: #### L [id number] ####[facility] ([facility])[address] [place] [address] Sodium [Moles/Vol] 134 mmol/L Low 136-145 [facility] Comment on above: Performed By: #### L [id number] ####[facility] ([facility])[address] [place] [address] Urea nitrogen [Mass/Vol] 38 mg/dL High 7-25 [facility] Comment on above: Performed By: #### L [id number] ####[facility] ([facility])[address] [place] [address] UREA NITROGEN/CREATININE (MASS RATIO) IN SER/PLAS 20.9 Normal [facility] Comment on above: Performed By: #### L [id number] ####[facility] ([facility])[address] [place] [address] MANUAL DIFFERENTIALon 2024 ACANTHOCYTES PRESENCE IN BLOOD BY LIGHT MICROSCOPY Moderate Normal [facility] Comment on above: Performed By: #### L [id number] ####[facility] ([facility])[address] [place] [address] ANISOCYTOSIS PRESENCE IN BLOOD BY LIGHT MICROSCOPY Moderate Normal [facility] Comment on above: Performed By: #### L [id number] ####[facility] ([facility])[address] [place] [address] BASOPHILS (10*3/UL) IN BLOOD BY CALCULATION 0.02 10*3/uL Normal 0.00-0.20 [facility] Comment on above: Performed By: #### L [id number] ####[facility] ([facility])[address] [place] [address] BASOPHILS/100 LEUKOCYTES IN BLOOD BY AUTOMATED COUNT 0.3 % Normal 0.0-1.0 [facility] Comment on above: Performed By: #### L [id number] ####[facility] ([facility])[address] [place] [address] HAMZAH CELLS PRESENCE IN BLOOD BY LIGHT MICROSCOPY Slight Normal [facility] Comment on above: Performed By: #### L [id number] ####[facility] ([facility])[address] [place] [address] ELLIPTOCYTES IN BLOOD BY LIGHT MICROSCOPY Slight Normal [facility] Comment on above: Performed By: #### L [id number] ####[facility] ([facility])[address] [place] [address] EOSINOPHILS (10*3/UL) IN BLOOD BY CALCULATION 0.16 10*3/uL Normal 0.00-0.50 [facility] Comment on above: Performed By: #### L [id number] ####[facility] ([facility])[address] [place] [address] EOSINOPHILS/100 LEUKOCYTES IN BLOOD BY AUTOMATED COUNT 2.7 % Normal 0.0-6.0 [facility] Comment on above: Performed By: #### L [id number] ####[facility] ([facility])[address] [place] [address] HYPOCHROMIA (PRESENCE) IN BLOOD BY LIGHT MICROSCOPY Slight Normal [facility] Comment on above: Performed By: #### L [id number] ####[facility] ([facility])[address] [place] [address] IMMATURE GRANULOCYTES (10*3/UL) IN BLOOD BY CALCULATION 0.05 10*3/uL Normal 0.00-0.20 [facility] Comment on above: Performed By: #### L [id number] ####[facility] ([facility])[address] [place] [address] IMMATURE GRANULOCYTES/100 LEUKOCYTES IN BLOOD BY AUTOMATED COUNT 0.9 % Normal 0.0-1.0 [facility] Comment on above: Performed By: #### L [id number] ####[facility] ([facility])[address] [place] [address] LYMPHOCYTES (10*3/UL) IN BLOOD BY CALCULATION 1.00 10*3/uL Low 1.20-4.00 [facility] Comment on above: Performed By: #### L [id number] ####[facility] ([facility])[address] [place] [address] LYMPHOCYTES/100 LEUKOCYTES IN BLOOD BY AUTOMATED COUNT 17.1 % Low 20.0-45.0 [facility] Comment on above: Performed By: #### L [id number] ####[facility] ([facility])[address] [place] [address] MONOCYTES (10*3/UL) IN BLOOD BY CALCUATION 0.58 10*3/uL Normal 0.10-1.00 [facility] Comment on above: Performed By: #### L [id number] ####[facility] ([facility])[address] [place] [address] MONOCYTES/100 LEUKOCYTES IN BLOOD BY AUTOMATED COUNT 9.9 % Normal 5.0-12.0 [facility] Comment on above: Performed By: #### L [id number] ####[facility] ([facility])[address] [place] [address] NEUTROPHILS (10*3/UL) IN BLOOD BY CALCULATION 4.0 10*3/uL Normal 1.6-7.6 [facility] Comment on above: Performed By: #### L [id number] ####[facility] ([facility])[address] [place] [address] NEUTROPHILS/100 LEUKOCYTES IN BLOOD BY AUTOMATED COUNT 69.1 % Normal 40.0-72.0 [facility] Comment on above: Performed By: #### L [id number] ####[facility] ([facility] [place] [address] OVALOCYTES PRESENCE IN BLOOD BY LIGHT MICROSCOPY Slight Normal [facility] Comment on above: Performed By: #### L [id number] ####[facility] ([facility])[address] [place] [address] POIKILOCYTOSIS (PRESENCE) IN BLOOD BY LIGHT MICROSCOPY Moderate Normal [facility] Comment on above: Performed By: #### L [id number] ####[facility] ([facility])[address] [place] [address] POLYCHROMASIA IN BLOOD BY LIGHT MICROSCOPY Slight Normal [facility] Comment on above: Performed By: #### L [id number] ####[facility] ([facility])[address] [place] [address] SCHISTOCYTES (PRESENCE) IN BLOOD BY LIGHT MICROSCOPY Slight Normal [facility] Comment on above: Performed By: #### L [id number] ####[facility] ([facility])[address] [place] [address] TARGET CELLS IN BLOOD BY LIGHT MICROSCOPY Slight Normal [facility] Comment on above: Performed By: #### L [id number] ####[facility] ([facility])[address] [place] [address] 30on 10-07-2024 30 Normal [facility] 30 Normal [facility] ANTI-XA (HEPARIN LEVEL)on HEPARIN UNFRACTIONATED (U/ML) IN PPP BY CHROMOGENIC METHOD 0.41 IU/mL Normal 0.3-0.7 [facility] Comment on above: Result Comment: [place] roxaban and Apixaban will interfere with the anti Xa assay used to monitor UFH and LMWH. Performed By: #### L [id number] ####[facility] ([facility])[address] [place] [address] CBC WITH AUTO DIFFERENTIALon 10-07-2024 Erythrocyte distribution width (RBC) [Ratio] 23.9 % High 11.5-15.0 [facility] Comment on above: Performed By: #### L [id number] ####[facility] ([facility])[address] [place] [address] ERYTHROCYTE MEAN CORPUSCULAR HEMOGLOBIN CONCENTRATION (G/DL) BY AUTOMATED 31.0 g/dL Low 32.0-35.[address] [facility] Comment on above: Performed By: #### L [id number] ####[facility] ([facility])[address] [place] [address] Hematocrit (Bld) [Volume fraction] 32.9 % Low 39.0-55.0 [facility] Comment on above: Performed By: #### L [id number] ####[facility] ([facility])[address] [place] [address] Hemoglobin (Bld) [Mass/Vol] 10.2 g/dL Low 13.0-17.0 [facility] Comment on above: Performed By: #### L [id number] ####[facility] ([facility])[address] [place] [address] IMMATURE PLATELET FRACTION % 2.8 % Normal 0.8-6.3 [facility] Comment on above: Performed By: #### L [id number] ####[facility] ([facility])[address] [place] [address] MCH (RBC) [Entitic mass] 27.8 pg Normal 27.0-33.0 [facility] Comment on above: Performed By: #### L [id number] ####[facility] ([facility])[address] [place] [address] MCV (RBC) [Entitic vol] 89.6 fL Normal 82.0-98.0 [facility] Comment on above: Performed By: #### L [id number] ####[facility] ([facility])[address] [place] [address] NRBC (PER 100 WBCS) BY AUTOMATED COUNT 0.0 % Normal 0 [facility] Comment on above: Performed By: #### L [id number] ####[facility] ([facility])[address] [place] [address] PLATELETS (10*3/UL) IN BLOOD AUTOMATED COUNT 102 10*3/uL Low 150-400 [facility] Comment on above: Performed By: #### L [id number] ####[facility] ([facility] [place] [address] RBC (Bld) [#/Vol] 3.67 10*6/uL Low 4.20-5.70 [facility] Comment on above: Performed By: #### L [id number] ####[facility] [place] [address] WBC (Bld) [#/Vol] 6.01 10*3/uL Normal 4.00-10.60 [facility] Comment on above: Performed By: #### L [id number] ####[facility] ([facility])[address] [place] [address] CNPNon 10-07-2024 CNPN Normal [facility] METABOLIC PANE [place] 10-07-2024 Albumin [Mass/Vol] 3.7 g/dL Normal 3.5-5.7 [facility] Comment on above: Performed By: #### L [id number] ####[facility] [place] [address] ALP [Catalytic activity/Vol] 122 U/L High 34-104 [facility] Comment on above: Performed By: #### L [id number] ####[facility] [place] [address] ALT [Catalytic activity/Vol] 192 U/L High 7-52 [facility] Comment on above: Performed By: #### L [id number] ####[facility] ([facility])[address] [place] [address] Anion gap [Moles/Vol] 12 mmol/L Normal 7-20 [facility] Comment on above: Performed By: #### L [id number] ####[facility] [place] [address] AST [Catalytic activity/Vol] 57 U/L High 13-39 [facility] Comment on above: Performed By: #### L [id number] ####[facility] ([facility])[address] [place] [address] Bilirubin [Mass/Vol] 1.8 mg/dL High 0.3-1.0 [facility] Comment on above: Performed By: #### L [id number] ####[facility] [place] [address] Calcium [Mass/Vol] 9.1 mg/dL Normal 8.6-10.3 [facility] Comment on above: Performed By: #### L [id number] ####[facility] ([facility])[address] [place] [address] Chloride [Moles/Vol] 98 mmol/L Normal 98-107 [facility] Comment on above: Performed By: #### L [id number] ####[facility] [place] [address] CO2 [Moles/Vol] 28 mmol/L Normal 21-31 [facility] Comment on above: Performed By: #### L [id number] ####[facility] ([facility])[address] [place] [address] Creatinine [Mass/Vol] 1.89 mg/dL High 0.70-1.30 [facility] Comment on above: Performed By: #### L [id number] ####[facility] ([facility])[address] [place] [address] GLOMERULAR FILTRATION RATE ML/MIN/1.73 SQ M.PREDICTED 35.0 mL/min/1.73m*2 Low >60.[address] [facility] Comment on above: Result Comment: [facility]???s estimated glomerular filtration rate (eGFR) will [...] of individuals. Performed By: #### L [id number] ####[facility] [place] [address] Glucose [Mass/Vol] 128 mg/dL High 70-100 [facility] Comment on above: Performed By: #### L [id number] ####[facility] [place] [address] Potassium [Moles/Vol] 4.6 mmol/L Normal 3.5-5.1 [facility] Comment on above: Performed By: #### L [id number] ####[facility] [place] [address] Protein [Mass/Vol] 6.3 g/dL Normal 6.0-8.3 [facility] Comment on above: Performed By: #### L [id number] ####[facility] ([facility])[address] [place] [address] Sodium [Moles/Vol] 133 mmol/L Low 136-145 [facility] Comment on above: Performed By: #### L [id number] ####[facility] ([facility])[address] [place] [address] Urea nitrogen [Mass/Vol] 38 mg/dL High 7-25 [facility] Comment on above: Performed By: #### L [id number] ####[facility] ([facility])[address] [place] [address] UREA NITROGEN/CREATININE (MASS RATIO) IN SER/PLAS 20.1 Normal [facility] Comment on above: Performed By: #### L [id number] ####[facility] ([facility])[address] [place] [address] Albumin [Mass/Vol] 3.5 g/dL Normal 3.5-5.7 [facility] Comment on above: Performed By: #### L [id number] ####[facility] ([facility])[address] [place] [address] ALP [Catalytic activity/Vol] 107 U/L High 34-104 [facility] Comment on above: Performed By: #### L [id number] ####[facility] ([facility])[address] [place] [address] ALT [Catalytic activity/Vol] 196 U/L High 7-52 [facility] Comment on above: Performed By: #### L [id number] ####[facility] ([facility])[address] [place] [address] Anion gap [Moles/Vol] 11 mmol/L Normal 7-20 [facility] Comment on above: Performed By: #### L [id number] ####[facility] ([facility])[address] [place] [address] AST [Catalytic activity/Vol] 57 U/L High 13-39 [facility] Comment on above: Performed By: #### L [id number] ####[facility] ([facility])[address] [place] [address] Bilirubin [Mass/Vol] 1.8 mg/dL High 0.3-1.0 [facility] Comment on above: Performed By: #### L [id number] ####[facility] ([facility])[address] [place] [address] Calcium [Mass/Vol] 8.6 mg/dL Normal 8.6-10.3 [facility] Comment on above: Performed By: #### L [id number] ####[facility] ([facility])[address] [place] [address] Chloride [Moles/Vol] 100 mmol/L Normal 98-107 [facility] Comment on above: Performed By: #### L [id number] ####[facility] ([facility])[address] [place] [address] CO2 [Moles/Vol] 28 mmol/L Normal 21-31 [facility] Comment on above: Performed By: #### L [id number] ####[facility] ([facility])[address] [place] [address] Creatinine [Mass/Vol] 1.86 mg/dL High 0.70-1.30 [facility] Comment on above: Performed By: #### L [id number] ####[facility] ([facility])[address] [place] [address] GLOMERULAR FILTRATION RATE ML/MIN/1.73 SQ M.PREDICTED 35.7 mL/min/1.73m*2 Low >60.[address] [facility] Comment on above: Result Comment: [facility]???s estimated glomerular filtration rate (eGFR) will [...] of individuals. Performed By: #### L [id number] ####[facility] ([facility])[address] [place] [address] Glucose [Mass/Vol] 80 mg/dL Normal 70-100 [facility] Comment on above: Performed By: #### L [id number] ####[facility] ([facility])[address] [place] [address] Potassium [Moles/Vol] 4.4 mmol/L Normal 3.5-5.1 [facility] Comment on above: Performed By: #### L [id number] ####[facility] ([facility])[address] [place] [address] Protein [Mass/Vol] 5.9 g/dL Low 6.0-8.3 [facility] Comment on above: Performed By: #### L [id number] ####[facility] ([facility])[address] [place] [address] Sodium [Moles/Vol] 135 mmol/L Low 136-145 [facility] Comment on above: Performed By: #### L [id number] ####[facility] ([facility] [place] [address] Urea nitrogen [Mass/Vol] 39 mg/dL High 7-25 [facility] Comment on above: Performed By: #### L [id number] ####[facility] ([facility])[address] [place] [address] UREA NITROGEN/CREATININE (MASS RATIO) IN SER/PLAS 21.0 Normal [facility] Comment on above: Performed By: #### L [id number] ####[facility] ([facility])[address] [place] [address] MAGNESIUMon 10-07-2024 Magnesium [Mass/Vol] 1.9 mg/dL Normal 1.9-2.7 [facility] Comment on above: Performed By: #### L [id number] ####[facility] ([facility])[address] [place] [address] MANUAL DIFFERENTIALon 2024 ACANTHOCYTES PRESENCE IN BLOOD BY LIGHT MICROSCOPY Slight Normal [facility] Comment on above: Performed By: #### L [id number] ####[facility] ([facility])[address] [place] [address] ANISOCYTOSIS PRESENCE IN BLOOD BY LIGHT MICROSCOPY Moderate Normal [facility] Comment on above: Performed By: #### L [id number] ####[facility] ([facility])[address] [place] [address] BASOPHILS (10*3/UL) IN BLOOD BY CALCULATION 0.03 10*3/uL Normal 0.00-0.20 [facility] Comment on above: Performed By: #### L [id number] ####[facility] ([facility])[address] [place] [address] BASOPHILS/100 LEUKOCYTES IN BLOOD BY AUTOMATED COUNT 0.6 % Normal 0.0-1.0 [facility] Comment on above: Performed By: #### L [id number] ####[facility] ([facility])[address] [place] [address] ELLIPTOCYTES IN BLOOD BY LIGHT MICROSCOPY Slight Normal [facility] Comment on above: Performed By: #### L [id number] ####[facility] ([facility])[address] [place] [address] EOSINOPHILS (10*3/UL) IN BLOOD BY CALCULATION 0.14 10*3/uL Normal 0.00-0.50 [facility] Comment on above: Performed By: #### L [id number] ####[facility] ([facility])[address] [place] [address] EOSINOPHILS/100 LEUKOCYTES IN BLOOD BY AUTOMATED COUNT 2.6 % Normal 0.0-6.0 [facility] Comment on above: Performed By: #### L [id number] ####[facility] ([facility])[address] [place] [address] IMMATURE GRANULOCYTES (10*3/UL) IN BLOOD BY CALCULATION 0.07 10*3/uL Normal 0.00-0.20 [facility] Comment on above: Performed By: #### L [id number] ####[facility] ([facility])[address] [place] [address] IMMATURE GRANULOCYTES/100 LEUKOCYTES IN BLOOD BY AUTOMATED COUNT 1.3 % High 0.0-1.0 [facility] Comment on above: Performed By: #### L [id number] ####[facility] ([facility])[address] [place] [address] LYMPHOCYTES (10*3/UL) IN BLOOD BY CALCULATION 0.95 10*3/uL Low 1.20-4.00 [facility] Comment on above: Performed By: #### L [id number] ####[facility] ([facility])[address] [place] [address] LYMPHOCYTES/100 LEUKOCYTES IN BLOOD BY AUTOMATED COUNT 17.9 % Low 20.0-45.0 [facility] Comment on above: Performed By: #### L [id number] ####[facility] ([facility])[address] [place] [address] MONOCYTES (10*3/UL) IN BLOOD BY CALCUATION 0.42 10*3/uL Normal 0.10-1.00 [facility] Comment on above: Performed By: #### L [id number] ####[facility] ([facility])[address] [place] [address] MONOCYTES/100 LEUKOCYTES IN BLOOD BY AUTOMATED COUNT 7.9 % Normal 5.0-12.0 [facility] Comment on above: Performed By: #### L [id number] ####[facility] ([facility])[address] [place] [address] NEUTROPHILS (10*3/UL) IN BLOOD BY CALCULATION 3.7 10*3/uL Normal 1.6-7.6 [facility] Comment on above: Performed By: #### L [id number] ####[facility] ([facility])[address] [place] [address] NEUTROPHILS/100 LEUKOCYTES IN BLOOD BY AUTOMATED COUNT 69.7 % Normal 40.0-72.0 [facility] Comment on above: Performed By: #### L [id number] ####[facility] ([facility])[address] [place] [address] OVALOCYTES PRESENCE IN BLOOD BY LIGHT MICROSCOPY Slight Normal [facility] Comment on above: Performed By: #### L [id number] ####[facility] ([facility])[address] [place] [address] POIKILOCYTOSIS (PRESENCE) IN BLOOD BY LIGHT MICROSCOPY Moderate Normal [facility] Comment on above: Performed By: #### L [id number] ####[facility] ([facility])[address] [place] [address] POLYCHROMASIA IN BLOOD BY LIGHT MICROSCOPY Slight Normal [facility] Comment on above: Performed By: #### L [id number] ####[facility] ([facility])[address] [place] [address] PHOSPHORUSon 10-07-2024 Magnesium [Mass/Vol] 2.0 mg/dL Low 2.5-5.0 [facility] Comment on above: Performed By: #### L [id number] ####[facility] ([facility])[address] [place] [address] 30on 10-06-2024 30 Normal [facility] ANTI-XA (HEPARIN LEVEL)on HEPARIN UNFRACTIONATED (U/ML) IN PPP BY CHROMOGENIC METHOD 0.43 IU/mL Normal 0.3-0.7 [facility] Comment on above: Result Comment: [place] roxaban and Apixaban will interfere with the anti Xa assay used to monitor UFH and LMWH. Performed By: #### L [id number] ####[facility] ([facility])[address] [place] [address] CBC WITH AUTO DIFFERENTIALon 10-06-2024 Erythrocyte distribution width (RBC) [Ratio] 23.7 % High 11.5-15.0 [facility] Comment on above: Performed By: #### L [id number] ####[facility] ([facility])[address] [place] [address] ERYTHROCYTE MEAN CORPUSCULAR HEMOGLOBIN CONCENTRATION (G/DL) BY AUTOMATED 30.8 g/dL Low 32.0-35.[address] [facility] Comment on above: Performed By: #### L [id number] ####[facility] ([facility])[address] [place] [address] Hematocrit (Bld) [Volume fraction] 32.8 % Low 39.0-55.0 [facility] Comment on above: Performed By: #### L [id number] ####[facility] ([facility])[address] [place] [address] Hemoglobin (Bld) [Mass/Vol] 10.1 g/dL Low 13.0-17.0 [facility] Comment on above: Performed By: #### L [id number] ####[facility] ([facility])[address] [place] [address] IMMATURE PLATELET FRACTION % 3.1 % Normal 0.8-6.3 [facility] Comment on above: Performed By: #### L [id number] ####[facility] ([facility])[address] [place] [address] MCH (RBC) [Entitic mass] 27.7 pg Normal 27.0-33.0 [facility] Comment on above: Performed By: #### L [id number] ####[facility] ([facility])[address] [place] [address] MCV (RBC) [Entitic vol] 90.1 fL Normal 82.0-98.0 [facility] Comment on above: Performed By: #### L [id number] ####[facility] ([facility])[address] [place] [address] NRBC (PER 100 WBCS) BY AUTOMATED COUNT 0.0 % Normal 0 [facility] Comment on above: Performed By: #### L [id number] ####[facility] ([facility])[address] [place] [address] PLATELETS (10*3/UL) IN BLOOD AUTOMATED COUNT 103 10*3/uL Low 150-400 [facility] Comment on above: Performed By: #### L [id number] ####[facility] ([facility])[address] [place] [address] RBC (Bld) [#/Vol] 3.64 10*6/uL Low 4.20-5.70 [facility] Comment on above: Performed By: #### L [id number] ####[facility] ([facility])[address] [place] [address] WBC (Bld) [#/Vol] 6.13 10*3/uL Normal 4.00-10.60 [facility] Comment on above: Performed By: #### L [id number] ####[facility] ([facility])[address] [place] [address] COMPREHENSIVE METABOLIC PANE [place] 10-06-2024 Albumin [Mass/Vol] 3.6 g/dL Normal 3.5-5.7 [facility] Comment on above: Performed By: #### L [id number] ####[facility] ([facility])[address] [place] [address] ALP [Catalytic activity/Vol] 105 U/L High 34-104 [facility] Comment on above: Performed By: #### L [id number] ####[facility] ([facility])[address] [place] [address] ALT [Catalytic activity/Vol] 234 U/L High 7-52 [facility] Comment on above: Performed By: #### L [id number] ####[facility] ([facility])[address] [place] [address] Anion gap [Moles/Vol] 11 mmol/L Normal 7-20 [facility] Comment on above: Performed By: #### L [id number] ####[facility] ([facility] [place] [address] AST [Catalytic activity/Vol] 70 U/L High 13-39 [facility] Comment on above: Performed By: #### L [id number] ####[facility] ([facility])[address] [place] [address] Bilirubin [Mass/Vol] 1.9 mg/dL High 0.3-1.0 [facility] Comment on above: Performed By: #### L [id number] ####[facility] ([facility])[address] [place] [address] Calcium [Mass/Vol] 8.7 mg/dL Normal 8.6-10.3 [facility] Comment on above: Performed By: #### L [id number] ####[facility] ([facility])[address] [place] [address] Chloride [Moles/Vol] 98 mmol/L Normal 98-107 [facility] Comment on above: Performed By: #### L [id number] ####[facility] ([facility] [place] [address] CO2 [Moles/Vol] 28 mmol/L Normal 21-31 [facility] Comment on above: Performed By: #### L [id number] ####[facility] ([facility])[address] [place] [address] Creatinine [Mass/Vol] 1.81 mg/dL High 0.70-1.30 [facility] Comment on above: Performed By: #### L [id number] ####[facility] ([facility])[address] [place] [address] GLOMERULAR FILTRATION RATE ML/MIN/1.73 SQ M.PREDICTED 36.9 mL/min/1.73m*2 Low >60.[address] [facility] Comment on above: Result Comment: [facility]???s estimated glomerular filtration rate (eGFR) will [...] of individuals. Performed By: #### L [id number] ####[facility] ([facility])[address] [place] [address] Glucose [Mass/Vol] 78 mg/dL Normal 70-100 [facility] Comment on above: Performed By: #### L [id number] ####[facility] ([facility])[address] [place] [address] Potassium [Moles/Vol] 4.3 mmol/L Normal 3.5-5.1 [facility] Comment on above: Performed By: #### L [id number] ####[facility] ([facility] [place] [address] Protein [Mass/Vol] 6.1 g/dL Normal 6.0-8.3 [facility] Comment on above: Performed By: #### L [id number] ####[facility] ([facility])[address] [place] [address] Sodium [Moles/Vol] 133 mmol/L Low 136-145 [facility] Comment on above: Performed By: #### L [id number] ####[facility] ([facility])[address] [place] [address] Urea nitrogen [Mass/Vol] 39 mg/dL High 7-25 [facility] Comment on above: Performed By: #### L [id number] ####[facility] ([facility])[address] [place] [address] UREA NITROGEN/CREATININE (MASS RATIO) IN SER/PLAS 21.5 Normal [facility] Comment on above: Performed By: #### L [id number] ####[facility] ([facility])[address] [place] [address] Albumin [Mass/Vol] 3.3 g/dL Low 3.5-5.7 [facility] Comment on above: Performed By: #### L [id number] ####[facility] ([facility])[address] [place] [address] ALP [Catalytic activity/Vol] 100 U/L Normal 34-104 [facility] Comment on above: Performed By: #### L [id number] ####[facility] ([facility])[address] [place] [address] ALT [Catalytic activity/Vol] 232 U/L High 7-52 [facility] Comment on above: Performed By: #### L [id number] ####[facility] ([facility])[address] [place] [address] Anion gap [Moles/Vol] 12 mmol/L Normal 7-20 [facility] Comment on above: Performed By: #### L [id number] ####[facility] ([facility])[address] [place] [address] AST [Catalytic activity/Vol] 71 U/L High 13-39 [facility] Comment on above: Performed By: #### L [id number] ####[facility] ([facility])[address] [place] [address] Bilirubin [Mass/Vol] 1.7 mg/dL High 0.3-1.0 [facility] Comment on above: Performed By: #### L [id number] ####[facility] ([facility] [place] [address] Calcium [Mass/Vol] 8.3 mg/dL Low 8.6-10.3 [facility] Comment on above: Performed By: #### L [id number] ####[facility] ([facility])[address] [place] [address] Chloride [Moles/Vol] 100 mmol/L Normal 98-107 [facility] Comment on above: Performed By: #### L [id number] ####[facility] ([facility])[address] [place] [address] CO2 [Moles/Vol] 28 mmol/L Normal 21-31 [facility] Comment on above: Performed By: #### L [id number] ####[facility] ([facility])[address] [place] [address] Creatinine [Mass/Vol] 1.88 mg/dL High 0.70-1.30 [facility] Comment on above: Performed By: #### L [id number] ####[facility] ([facility])[address] [place] [address] GLOMERULAR FILTRATION RATE ML/MIN/1.73 SQ M.PREDICTED 35.2 mL/min/1.73m*2 Low >60.[address] [facility] Comment on above: Result Comment: [facility]???s estimated glomerular filtration rate (eGFR) will [...] of individuals. Performed By: #### L [id number] ####[facility] ([facility])[address] [place] [address] Glucose [Mass/Vol] 101 mg/dL High 70-100 [facility] Comment on above: Performed By: #### L [id number] ####[facility] ([facility])[address] [place] [address] Potassium [Moles/Vol] 3.7 mmol/L Normal 3.5-5.1 [facility] Comment on above: Performed By: #### L [id number] ####[facility] ([facility])[address] [place] [address] Protein [Mass/Vol] 5.6 g/dL Low 6.0-8.3 [facility] Comment on above: Performed By: #### L [id number] ####[facility] ([facility])[address] [place] [address] Sodium [Moles/Vol] 136 mmol/L Normal 136-145 [facility] Comment on above: Performed By: #### L [id number] ####[facility] ([facility])[address] [place] [address] Urea nitrogen [Mass/Vol] 41 mg/dL High 7-25 [facility] Comment on above: Performed By: #### L [id number] ####[facility] ([facility])[address] [place] [address] UREA NITROGEN/CREATININE (MASS RATIO) IN SER/PLAS 21.8 Normal [facility] Comment on above: Performed By: #### L [id number] ####[facility] ([facility])[address] [place] [address] MAGNESIUMon 10-06-2024 Magnesium [Mass/Vol] 1.9 mg/dL Normal 1.9-2.7 [facility] Comment on above: Performed By: #### L [id number] ####[facility] ([facility])[address] [place] [address] MANUAL DIFFERENTIALon 2024 ACANTHOCYTES PRESENCE IN BLOOD BY LIGHT MICROSCOPY Moderate Normal [facility] Comment on above: Performed By: #### L [id number] ####[facility] ([facility])[address] [place] [address] BASOPHILS (10*3/UL) IN BLOOD BY CALCULATION 0.04 10*3/uL Normal 0.00-0.20 [facility] Comment on above: Performed By: #### L [id number] ####[facility] ([facility])[address] [place] [address] BASOPHILS/100 LEUKOCYTES IN BLOOD BY AUTOMATED COUNT 0.7 % Normal 0.0-1.0 [facility] Comment on above: Performed By: #### L [id number] ####[facility] ([facility])[address] [place] [address] ELLIPTOCYTES IN BLOOD BY LIGHT MICROSCOPY Slight Normal [facility] Comment on above: Performed By: #### L [id number] ####[facility] ([facility])[address] [place] [address] EOSINOPHILS (10*3/UL) IN BLOOD BY CALCULATION 0.21 10*3/uL Normal 0.00-0.50 [facility] Comment on above: Performed By: #### L [id number] ####[facility] ([facility])[address] [place] [address] EOSINOPHILS/100 LEUKOCYTES IN BLOOD BY AUTOMATED COUNT 3.4 % Normal 0.0-6.0 [facility] Comment on above: Performed By: #### L [id number] ####[facility] ([facility])[address] [place] [address] IMMATURE GRANULOCYTES (10*3/UL) IN BLOOD BY CALCULATION 0.07 10*3/uL Normal 0.00-0.20 [facility] Comment on above: Performed By: #### L [id number] ####[facility] ([facility])[address] [place] [address] IMMATURE GRANULOCYTES/100 LEUKOCYTES IN BLOOD BY AUTOMATED COUNT 1.1 % High 0.0-1.0 [facility] Comment on above: Performed By: #### L [id number] ####[facility] ([facility])[address] [place] [address] LYMPHOCYTES (10*3/UL) IN BLOOD BY CALCULATION 0.96 10*3/uL Low 1.20-4.00 [facility] Comment on above: Performed By: #### L [id number] ####[facility] ([facility])[address] [place] [address] LYMPHOCYTES/100 LEUKOCYTES IN BLOOD BY AUTOMATED COUNT 15.7 % Low 20.0-45.0 [facility] Comment on above: Performed By: #### L [id number] ####[facility] ([facility])[address] [place] [address] MONOCYTES (10*3/UL) IN BLOOD BY CALCUATION 0.64 10*3/uL Normal 0.10-1.00 [facility] Comment on above: Performed By: #### L [id number] ####[facility] ([facility])[address] [place] [address] MONOCYTES/100 LEUKOCYTES IN BLOOD BY AUTOMATED COUNT 10.4 % Normal 5.0-12.0 [facility] Comment on above: Performed By: #### L [id number] ####[facility] ([facility])[address] [place], [place] [address] NEUTROPHILS (10*3/UL) IN BLOOD BY CALCULATION 4.2 10*3/uL Normal 1.6-7.6 [facility] Comment on above: Performed By: #### L [id number] ####[facility] ([facility])[address] [place] [address] NEUTROPHILS/100 LEUKOCYTES IN BLOOD BY AUTOMATED COUNT 68.7 % Normal 40.0-72.0 [facility] Comment on above: Performed By: #### L [id number] ####[facility] ([facility])[address] [place] [address] POIKILOCYTOSIS (PRESENCE) IN BLOOD BY LIGHT MICROSCOPY Moderate Normal [facility] Comment on above: Performed By: #### L [id number] ####[facility] ([facility])[address] [place] [address] POLYCHROMASIA IN BLOOD BY LIGHT MICROSCOPY Slight Normal [facility] Comment on above: Performed By: #### L [id number] ####[facility] ([facility])[address] [place] [address] SCHISTOCYTES (PRESENCE) IN BLOOD BY LIGHT MICROSCOPY Slight Normal [facility] Comment on above: Performed By: #### L [id number] ####[facility] ([facility])[address] [place] [address] PHOSPHORUSon 10-06-2024 Magnesium [Mass/Vol] 1.8 mg/dL Low 2.5-5.0 [facility] Comment on above: Performed By: #### L [id number] ####[facility] ([facility])[address] [place] [address] Magnesium [Mass/Vol] 1.8 mg/dL Low 1.9-2.7 [facility] Comment on above: Performed By: #### L [id number] ####[facility] ([facility])[address] [place] [address] Performed By: #### L [id number] ####[facility] ([facility])[address] [place] [address] 30on 10-05-2024 30 Normal [facility] ANTI-XA (HEPARIN LEVEL)on HEPARIN UNFRACTIONATED (U/ML) IN PPP BY CHROMOGENIC METHOD 0.31 IU/mL Normal 0.3-0.7 [facility] Comment on above: Result Comment: Padmini roxaban and Apixaban will interfere with the anti Xa assay used to monitor UFH and LMWH. Performed By: #### L [id number] ####[facility] ([facility])[address] [place] [address] CBC WITH AUTO DIFFERENTIALon 10-05-2024 Erythrocyte distribution width (RBC) [Ratio] 23.7 % High 11.5-15.0 [facility] Comment on above: Performed By: #### L [id number] ####[facility] ([facility])[address] [place] [address] ERYTHROCYTE MEAN CORPUSCULAR HEMOGLOBIN CONCENTRATION (G/DL) BY AUTOMATED 31.2 g/dL Low 32.0-35.[address] [facility] Comment on above: Performed By: #### L [id number] ####[facility] ([facility])[address] [place] [address] Hematocrit (Bld) [Volume fraction] 33.0 % Low 39.0-55.0 [facility] Comment on above: Performed By: #### L [id number] ####[facility] ([facility] [place] [address] Hemoglobin (Bld) [Mass/Vol] 10.3 g/dL Low 13.0-17.0 [facility] Comment on above: Performed By: #### L [id number] ####[facility] ([facility])[address] [place] [address] IMMATURE PLATELET FRACTION % 2.6 % Normal 0.8-6.3 [facility] Comment on above: Performed By: #### L [id number] ####[facility] [facility] ([facility])[address] [place] [address] MCH (RBC) [Entitic mass] 28.2 pg Normal 27.0-33.0 [facility] Comment on above: Performed By: #### L [id number] ####[facility] ([facility])[address] [place] [address] MCV (RBC) [Entitic vol] 90.4 fL Normal 82.0-98.0 [facility] Comment on above: Performed By: #### L [id number] ####[facility] ([facility])[address] [place] [address] NRBC (PER 100 WBCS) BY AUTOMATED COUNT 0.0 % Normal 0 [facility] Comment on above: Performed By: #### L [id number] ####[facility] ([facility])[address] [place] [address] PLATELETS (10*3/UL) IN BLOOD AUTOMATED COUNT 106 10*3/uL Low 150-400 [facility] Comment on above: Performed By: #### L [id number] ####[facility] ([facility])[address] [place] [address] RBC (Bld) [#/Vol] 3.65 10*6/uL Low 4.20-5.70 [facility] Comment on above: Performed By: #### L [id number] ####[facility] ([facility])[address] [place] [address] WBC (Bld) [#/Vol] 5.63 10*3/uL Normal 4.00-10.60 [facility] Comment on above: Performed By: #### L [id number] ####[facility])[address] [place] [address] COMPREHENSIVE METABOLIC PANE Aldo 10-05-2024 Albumin [Mass/Vol] 3.5 g/dL Normal 3.5-5.7 [facility] Comment on above: Performed By: #### L [id number] ####[facility] ([facility] [place] [address] ALP [Catalytic activity/Vol] 103 U/L Normal 34-104 [facility] Comment on above: Performed By: #### L [id number] ####[facility] ([facility])[address] [place] [address] ALT [Catalytic activity/Vol] 277 U/L High 7-52 [facility] Comment on above: Performed By: #### L [id number] ####[facility] ([facility])[address] [place] [address] Anion gap [Moles/Vol] 13 mmol/L Normal 7-20 [facility] Comment on above: Performed By: #### L [id number] ####[facility] [place] [address] AST [Catalytic activity/Vol] 91 U/L High 13-39 [facility] Comment on above: Performed By: #### L [id number] ####[facility] ([facility])[address] [place] [address] Bilirubin [Mass/Vol] 1.8 mg/dL High 0.3-1.0 [facility] Comment on above: Performed By: #### L [id number] ####[facility] [place] [address] Calcium [Mass/Vol] 8.5 mg/dL Low 8.6-10.3 [facility] Comment on above: Performed By: #### L [id number] ####[facility] [place] [address] Chloride [Moles/Vol] 99 mmol/L Normal 98-107 [facility] Comment on above: Performed By: #### L [id number] ####[facility] [place] [address] CO2 [Moles/Vol] 27 mmol/L Normal 21-31 [facility] Comment on above: Performed By: #### L [id number] ####[facility] ([facility])[address] [place] [address] Creatinine [Mass/Vol] 1.96 mg/dL High 0.70-1.30 [facility] Comment on above: Performed By: #### L [id number] ####[facility] ([facility])[address] [place] [address] GLOMERULAR FILTRATION RATE ML/MIN/1.73 SQ M.PREDICTED 33.5 mL/min/1.73m*2 Low >60.[address] [facility] Comment on above: Result Comment: [facility]???s estimated glomerular filtration rate (eGFR) will [...] of individuals. Performed By: #### L [id number] ####[facility] [place] [address] Glucose [Mass/Vol] 90 mg/dL Normal 70-100 [facility] Comment on above: Performed By: #### L [id number] ####[facility] [place] [address] Potassium [Moles/Vol] 3.8 mmol/L Normal 3.5-5.1 [facility] Comment on above: Performed By: #### L [id number] ####[facility] [place] [address] Protein [Mass/Vol] 6.0 g/dL Normal 6.0-8.3 [facility] Comment on above: Performed By: #### L [id number] ####[facility] ([facility])[address] [place] [address] Sodium [Moles/Vol] 135 mmol/L Low 136-145 [facility] Comment on above: Performed By: #### L [id number] ####[facility] ([facility])[address] [place] [address] Urea nitrogen [Mass/Vol] 43 mg/dL High 7-25 [facility] Comment on above: Performed By: #### L [id number] ####[facility] ([facility])[address] [place] [address] UREA NITROGEN/CREATININE (MASS RATIO) IN SER/PLAS 21.9 Normal [facility] Comment on above: Performed By: #### L [id number] ####[facility] ([facility])[address] [place] [address] Albumin [Mass/Vol] 3.2 g/dL Low 3.5-5.7 [facility] Comment on above: Performed By: #### L [id number] ####[facility] ([facility])[address] [place] [address] ALP [Catalytic activity/Vol] 93 U/L Normal 34-104 [facility] Comment on above: Performed By: #### L [id number] ####[facility] ([facility])[address] [place] [address] ALT [Catalytic activity/Vol] 279 U/L High 7-52 [facility] Comment on above: Performed By: #### L [id number] ####[facility] ([facility])[address] [place] [address] Anion gap [Moles/Vol] 12 mmol/L Normal 7-20 [facility] Comment on above: Performed By: #### L [id number] ####[facility] ([facility])[address] [place] [address] AST [Catalytic activity/Vol] 93 U/L High 13-39 [facility] Comment on above: Performed By: #### L [id number] ####[facility] [place] [place] [address] Bilirubin [Mass/Vol] 1.6 mg/dL High 0.3-1.0 [facility] Comment on above: Performed By: #### L [id number] ####[facility] [place] [address] Calcium [Mass/Vol] 8.2 mg/dL Low 8.6-10.3 [facility] Comment on above: Performed By: #### L [id number] ####[facility] ([facility])[address] [place] [address] Chloride [Moles/Vol] 100 mmol/L Normal 98-107 [facility] Comment on above: Performed By: #### L [id number] ####[facility] [place] [address] CO2 [Moles/Vol] 28 mmol/L Normal 21-31 [facility] Comment on above: Performed By: #### L [id number] ####[facility] ([facility])[address], [place] [address] Creatinine [Mass/Vol] 2.07 mg/dL High 0.70-1.30 [facility] Comment on above: Performed By: #### L [id number] ####[facility] [place] [address] GLOMERULAR FILTRATION RATE ML/MIN/1.73 SQ M.PREDICTED 31.4 mL/min/1.73m*2 Low >60.[address] [facility] Comment on above: Result Comment: [facility]???s estimated glomerular filtration rate (eGFR) will [...] of individuals. Performed By: #### L [id number] ####[facility] ([facility])[address] [place] [address] Glucose [Mass/Vol] 102 mg/dL High 70-100 [facility] Comment on above: Performed By: #### L [id number] ####[facility] ([facility])[address] [place] [address] Potassium [Moles/Vol] 3.6 mmol/L Normal 3.5-5.1 [facility] Comment on above: Performed By: #### L [id number] ####[facility] ([facility])[address] [place] [address] Protein [Mass/Vol] 5.3 g/dL Low 6.0-8.3 [facility] Comment on above: Performed By: #### L [id number] ####[facility] ([facility])[address] [place] [address] Sodium [Moles/Vol] 136 mmol/L Normal 136-145 [facility] Comment on above: Performed By: #### L [id number] ####[facility] ([facility])[address] [place] [address] Urea nitrogen [Mass/Vol] 45 mg/dL High 7-25 [facility] Comment on above: Performed By: #### L [id number] ####[facility] ([facility])[address] [place] [address] UREA NITROGEN/CREATININE (MASS RATIO) IN SER/PLAS 21.7 Normal [facility] Comment on above: Performed By: #### L [id number] ####[facility] ([facility])[address] [place] [address] MAGNESIUMon 10-05-2024 Magnesium [Mass/Vol] 2.0 mg/dL Normal 1.9-2.7 [facility] Comment on above: Performed By: #### L [id number] ####[facility] ([facility])[address] [place] [address] Magnesium [Mass/Vol] 1.9 mg/dL Normal 1.9-2.7 [facility] Comment on above: Performed By: #### L [id number] ####[facility] ([facility])[address] [place] [address] MANUAL DIFFERENTIALon 2024 ACANTHOCYTES PRESENCE IN BLOOD BY LIGHT MICROSCOPY Moderate Normal [facility] Comment on above: Performed By: #### L [id number] ####[facility] ([facility])[address] [place] [address] ANISOCYTOSIS PRESENCE IN BLOOD BY LIGHT MICROSCOPY Moderate Normal [facility] Comment on above: Performed By: #### L [id number] ####[facility] ([facility])[address] [place] [address] BASOPHILS (10*3/UL) IN BLOOD BY CALCULATION 0.04 10*3/uL Normal 0.00-0.20 [facility] Comment on above: Performed By: #### L [id number] ####[facility] ([facility])[address] [place] [address] BASOPHILS/100 LEUKOCYTES IN BLOOD BY AUTOMATED COUNT 0.7 % Normal 0.0-1.0 [facility] Comment on above: Performed By: #### L [id number] ####[facility] ([facility])[address] [place] [address] ELLIPTOCYTES IN BLOOD BY LIGHT MICROSCOPY Slight Normal [facility] Comment on above: Performed By: #### L [id number] ####[facility] ([facility])[address] [place] [address] EOSINOPHILS (10*3/UL) IN BLOOD BY CALCULATION 0.19 10*3/uL Normal 0.00-0.50 [facility] Comment on above: Performed By: #### L [id number] ####[facility] ([facility])[address] [place] [address] EOSINOPHILS/100 LEUKOCYTES IN BLOOD BY AUTOMATED COUNT 3.4 % Normal 0.0-6.0 [facility] Comment on above: Performed By: #### L [id number] ####[facility] ([facility])[address] [place] [address] IMMATURE GRANULOCYTES (10*3/UL) IN BLOOD BY CALCULATION 0.06 10*3/uL Normal 0.00-0.20 [facility] Comment on above: Performed By: #### L [id number] ####[facility] ([facility])[address] [place] [address] IMMATURE GRANULOCYTES/100 LEUKOCYTES IN BLOOD BY AUTOMATED COUNT 1.1 % High 0.0-1.0 [facility] Comment on above: Performed By: #### L [id number] ####[facility] ([facility])[address] [place] [address] LYMPHOCYTES (10*3/UL) IN BLOOD BY CALCULATION 0.85 10*3/uL Low 1.20-4.00 [facility] Comment on above: Performed By: #### L [id number] ####[facility] ([facility])[address], [place] [address] LYMPHOCYTES/100 LEUKOCYTES IN BLOOD BY AUTOMATED COUNT 15.1 % Low 20.0-45.0 [facility] Comment on above: Performed By: #### L [id number] ####[facility] ([facility])[address] [place] [address] MONOCYTES (10*3/UL) IN BLOOD BY CALCUATION 0.66 10*3/uL Normal 0.10-1.00 [facility] Comment on above: Performed By: #### L [id number] ####[facility] ([facility])[address], [place] [address] MONOCYTES/100 LEUKOCYTES IN BLOOD BY AUTOMATED COUNT 11.7 % Normal 5.0-12.0 [facility] Comment on above: Performed By: #### L [id number] ####[facility] ([facility])[address], [place] [address] NEUTROPHILS (10*3/UL) IN BLOOD BY CALCULATION 3.8 10*3/uL Normal 1.6-7.6 [facility] Comment on above: Performed By: #### L [id number] ####[facility] ([facility])[address] [place] [address] NEUTROPHILS/100 LEUKOCYTES IN BLOOD BY AUTOMATED COUNT 68.0 % Normal 40.0-72.0 [facility] Comment on above: Performed By: #### L [id number] ####[facility] ([facility])[address] [place] [address] POIKILOCYTOSIS (PRESENCE) IN BLOOD BY LIGHT MICROSCOPY Marked Normal [facility] Comment on above: Performed By: #### L [id number] ####[facility] ([facility])[address] [place] [address] POLYCHROMASIA IN BLOOD BY LIGHT MICROSCOPY Slight Normal [facility] Comment on above: Performed By: #### L [id number] ####[facility] ([facility])[address] [place] [address] SCHISTOCYTES (PRESENCE) IN BLOOD BY LIGHT MICROSCOPY Slight Normal [facility] Comment on above: Performed By: #### L [id number] ####[facility] ([facility])[address] [place] [address] NURSNOTEon 10-05-2024 NURSNOTE Normal [facility] PHOSPHORUSon 10-05-2024 Magnesium [Mass/Vol] 1.9 mg/dL Low 2.5-5.0 [facility] Comment on above: Performed By: #### L [id number] ####[facility] ([facility])[address] [facility] [address] Magnesium [Mass/Vol] 2.1 mg/dL Low 2.5-5.0 [facility] Comment on above: Performed By: #### L [id number] ####[facility] ([facility])[address] [place] [address] POCT GLUCOSE METER UNSOLICIT ED RESULTSon 10-05-2024 Glucose [Mass/Vol] 117 mg/dL High 70-105 [facility] Comment on above: Order Comment: Waive d Testing in the ED is performed under the ED CLIA certificate #[id number]. Result Comment: [email or web address] [id number] Performed By: #### L [id number] ####[facility] ([facility])[address] [place] [address] Glucose [Mass/Vol] 111 mg/dL High 70-105 [facility] Comment on above: Order Comment: Waive d Testing in the ED is performed under the ED CLIA certificate #[id number]. Result Comment: [id number] Performed By: #### L [id number] ####[facility] ([facility])[address] [place] [address] 30on 10-04-2024 30 Normal [facility] ANTI-XA (HEPARIN LEVEL)on HEPARIN UNFRACTIONATED (U/ML) IN PPP BY CHROMOGENIC METHOD 0.50 IU/mL Normal 0.3-0.7 [facility] Comment on above: Result Comment: [place] roxaban and Apixaban will interfere with the anti Xa assay used to monitor UFH and LMWH. Performed By: #### L [id number] ####[facility] ([facility])[address] [place] [address] BASIC METABOLIC PANELon 09-16 Anion gap [Moles/Vol] 14 mmol/L Normal 7-20 [facility] Comment on above: Performed By: #### L [id number] ####[facility] ([facility])[address] [place] [address] Calcium [Mass/Vol] 8.6 mg/dL Normal 8.6-10.3 [facility] Comment on above: Performed By: #### L [id number] ####[facility] ([facility])[address] [place] [address] Chloride [Moles/Vol] 100 mmol/L Normal 98-107 [facility] Comment on above: Performed By: #### L [id number] ####[facility] ([facility])[address] [place] [address] CO2 [Moles/Vol] 28 mmol/L Normal 21-31 [facility] Comment on above: Performed By: #### L [id number] ####[facility] ([facility])[address] [place] [address] Creatinine [Mass/Vol] 2.32 mg/dL High 0.70-1.30 [facility] Comment on above: Performed By: #### L [id number] ####[facility] ([facility])[address] [place] [address] GLOMERULAR FILTRATION RATE ML/MIN/1.73 SQ M.PREDICTED 27.4 mL/min/1.73m*2 Low >60.[address] [facility] Comment on above: Result Comment: [facility]???s estimated glomerular filtration rate (eGFR) will [...] of individuals. Performed By: #### L [id number] ####[facility] ([facility])[address] [place] [address] Glucose [Mass/Vol] 120 mg/dL High 70-100 [facility] Comment on above: Performed By: #### L [id number] ####[facility] ([facility])[address] [place] [address] Potassium [Moles/Vol] 3.9 mmol/L Normal 3.5-5.1 [facility] Comment on above: Performed By: #### L [id number] ####[facility] ([facility])[address] [place] [address] Sodium [Moles/Vol] 138 mmol/L Normal 136-145 [facility] Comment on above: Performed By: #### L [id number] ####[facility] [place] [address] Urea nitrogen [Mass/Vol] 52 mg/dL High 7-25 [facility] Comment on above: Performed By: #### L [id number] ####[facility] ([facility])[address] [place] [address] UREA NITROGEN/CREATININE (MASS RATIO) IN SER/PLAS 22.4 Normal [facility] Comment on above: Performed By: #### L [id number] ####[facility] ([facility])[address] [place] [address] CBC WITH AUTO DIFFERENTIALon 10-04-2024 Erythrocyte distribution width (RBC) [Ratio] 23.1 % High 11.5-15.0 [facility] Comment on above: Performed By: #### L [id number] ####[facility] ([facility])[address] [place], [place] [address] ERYTHROCYTE MEAN CORPUSCULAR HEMOGLOBIN CONCENTRATION (G/DL) BY AUTOMATED 30.9 g/dL Low 32.0-35.[address] [facility] Comment on above: Performed By: #### L [id number] ####[facility] ([facility])[address] [place] [address] Hematocrit (Bld) [Volume fraction] 34.3 % Low 39.0-55.0 [facility] Comment on above: Performed By: #### L [id number] ####[facility] ([facility])[address] [place], [place] [address] Hemoglobin (Bld) [Mass/Vol] 10.6 g/dL Low 13.0-17.0 [facility] Comment on above: Performed By: #### L [id number] ####[facility] [place] [address] IMMATURE PLATELET FRACTION % 3.2 % Normal 0.8-6.3 [facility] Comment on above: Performed By: #### L [id number] ####[facility] [place] [address] MCH (RBC) [Entitic mass] 27.5 pg Normal 27.0-33.0 [facility] Comment on above: Performed By: #### L [id number] ####[facility] ([facility])[address] [place] [address] MCV (RBC) [Entitic vol] 89.1 fL Normal 82.0-98.0 [facility] Comment on above: Performed By: #### L [id number] ####[facility] ([facility])[address] [place] [address] NRBC (PER 100 WBCS) BY AUTOMATED COUNT 0.3 % High 0 [facility] Comment on above: Performed By: #### L [id number] ####[facility] ([facility])[address] [place] [address] PLATELETS (10*3/UL) IN BLOOD AUTOMATED COUNT 119 10*3/uL Low 150-400 [facility] Comment on above: Performed By: #### L [id number] ####[facility] ([facility])[address] [place] [address] RBC (Bld) [#/Vol] 3.85 10*6/uL Low 4.20-5.70 [facility] Comment on above: Performed By: #### L [id number] ####[facility] ([facility])[address] [place] [address] WBC (Bld) [#/Vol] 6.34 10*3/uL Normal 4.00-10.60 [facility] Comment on above: Performed By: #### L [id number] ####[facility] [place] [address] COMPREHENSIVE METABOLIC PANE [place] 10-04-2024 Albumin [Mass/Vol] 3.5 g/dL Normal 3.5-5.7 [facility] Comment on above: Performed By: #### L [id number] ####[facility] [place] [address] ALP [Catalytic activity/Vol] 108 U/L High 34-104 [facility] Comment on above: Performed By: #### L [id number] ####[facility] [place] [address] ALT [Catalytic activity/Vol] 369 U/L High 7-52 [facility] Comment on above: Performed By: #### L [id number] ####[facility] [place] [address] Anion gap [Moles/Vol] 16 mmol/L Normal 7-20 [facility] Comment on above: Performed By: #### L [id number] ####[facility] ([facility])[address] [place] [address] AST [Catalytic activity/Vol] 138 U/L High 13-39 [facility] Comment on above: Performed By: #### L [id number] ####[facility] ([facility])[address] [place] [address] Bilirubin [Mass/Vol] 1.9 mg/dL High 0.3-1.0 [facility] Comment on above: Performed By: #### L [id number] ####[facility] ([facility] [place] [address] Calcium [Mass/Vol] 8.5 mg/dL Low 8.6-10.3 [facility] Comment on above: Performed By: #### L [id number] ####[facility] ([facility] [place] [address] Chloride [Moles/Vol] 100 mmol/L Normal 98-107 [facility] Comment on above: Performed By: #### L [id number] ####[facility] ([facility])[address] [place] [address] CO2 [Moles/Vol] 26 mmol/L Normal 21-31 [facility] Comment on above: Performed By: #### L [id number] ####[facility] ([facility])[address] [place] [address] Creatinine [Mass/Vol] 2.13 mg/dL High 0.70-1.30 [facility] Comment on above: Performed By: #### L [id number] ####[facility] ([facility])[address] [place] [address] GLOMERULAR FILTRATION RATE ML/MIN/1.73 SQ M.PREDICTED 30.3 mL/min/1.73m*2 Low >60.[address] [facility] Comment on above: Result Comment: [facility]???s estimated glomerular filtration rate (eGFR) will [...] of individuals. Performed By: #### L [id number] ####[facility] ([facility])[address] [place] [address] Glucose [Mass/Vol] 101 mg/dL High 70-100 [facility] Comment on above: Performed By: #### L [id number] ####[facility] ([facility])[address] [place] [address] Potassium [Moles/Vol] 3.8 mmol/L Normal 3.5-5.1 [facility] Comment on above: Performed By: #### L [id number] ####[facility] ([facility] [facility] [place] [address] Protein [Mass/Vol] 6.1 g/dL Normal 6.0-8.3 [facility] Comment on above: Performed By: #### L [id number] ####[facility] ([facility])[address] [place] [address] Sodium [Moles/Vol] 138 mmol/L Normal 136-145 [facility] Comment on above: Performed By: #### L [id number] ####[facility] ([facility])[address] [place] [address] Urea nitrogen [Mass/Vol] 48 mg/dL High 7-25 [facility] Comment on above: Performed By: #### L [id number] ####[facility] ([facility])[address] [place] [address] UREA NITROGEN/CREATININE (MASS RATIO) IN SER/PLAS 22.5 Normal [facility] Comment on above: Performed By: #### L [id number] ####[facility] ([facility])[address] [place] [address] Albumin [Mass/Vol] 3.2 g/dL Low 3.5-5.7 [facility] Comment on above: Performed By: #### L [id number] ####[facility] ([facility])[address] [place] [address] ALP [Catalytic activity/Vol] 96 U/L Normal 34-104 [facility] Comment on above: Performed By: #### L [id number] ####[facility] ([facility])[address] [place] [address] ALT [Catalytic activity/Vol] 388 U/L High 7-52 [facility] Comment on above: Performed By: #### L [id number] ####[facility] ([facility])[address] [place] [address] Anion gap [Moles/Vol] 15 mmol/L Normal 7-20 [facility] Comment on above: Performed By: #### L [id number] ####[facility] ([facility])[address] [place] [address] AST [Catalytic activity/Vol] 163 U/L High 13-39 [facility] Comment on above: Performed By: #### L [id number] ####[facility] ([facility])[address] [place] [address] Bilirubin [Mass/Vol] 1.9 mg/dL High 0.3-1.0 [facility] Comment on above: Performed By: #### L [id number] ####[facility] ([facility])[address] [place] [address] Calcium [Mass/Vol] 8.3 mg/dL Low 8.6-10.3 [facility] Comment on above: Performed By: #### L [id number] ####[facility] ([facility])[address] [place] [address] Chloride [Moles/Vol] 100 mmol/L Normal 98-107 [facility] Comment on above: Performed By: #### L [id number] ####[facility] [place] [address] CO2 [Moles/Vol] 29 mmol/L Normal 21-31 [facility] Comment on above: Performed By: #### L [id number] ####[facility] ([facility])[address] [place] [address] Creatinine [Mass/Vol] 2.51 mg/dL High 0.70-1.30 [facility] Comment on above: Performed By: #### L [id number] ####[facility] [place] [address] GLOMERULAR FILTRATION RATE ML/MIN/1.73 SQ M.PREDICTED 24.9 mL/min/1.73m*2 Low >60.[address] [facility] Comment on above: Result Comment: [facility]???s estimated glomerular filtration rate (eGFR) will [...] of individuals. Performed By: #### L [id number] ####[facility] [place] [address] Glucose [Mass/Vol] 107 mg/dL High 70-100 [facility] Comment on above: Performed By: #### L [id number] ####[facility] ([facility])[address] [place] [address] Potassium [Moles/Vol] 3.2 mmol/L Low 3.5-5.1 [facility] Comment on above: Performed By: #### L [id number] ####[facility] ([facility])[address] [place] [address] Protein [Mass/Vol] 5.4 g/dL Low 6.0-8.3 [facility] Comment on above: Performed By: #### L [id number] ####[facility] ([facility])[address] [place] [address] Sodium [Moles/Vol] 141 mmol/L Normal 136-145 [facility] Comment on above: Performed By: #### L [id number] ####[facility] ([facility])[address] [place] [address] Urea nitrogen [Mass/Vol] 52 mg/dL High 7-25 [facility] Comment on above: Performed By: #### L [id number] ####[facility] ([facility])[address] [place] [address] UREA NITROGEN/CREATININE (MASS RATIO) IN SER/PLAS 20.7 Normal [facility] Comment on above: Performed By: #### L [id number] ####[facility] ([facility])[address] [place] [address] HEMOGLOBIN A1Con 10-04-2024 Glucose [Mass/Vol] 114 mg/dL Normal [facility] Comment on above: Performed By: #### L [id number] ####[facility] ([facility])[address] [place] [address] HbA1c (Bld) [Mass fraction] 5.6 % Normal 4.0-6.0 [facility] Comment on above: Performed By: #### L [id number] ####[facility] ([facility])[address] [place] [address] MAGNESIUMon 10-04-2024 Magnesium [Mass/Vol] 2.3 mg/dL Low 2.5-5.0 [facility] Comment on above: Performed By: #### L [id number] ####[facility] ([facility])[address] [place] [address] Performed By: #### L [id number] ####[facility] ([facility])[address] [place] [address] Magnesium [Mass/Vol] 1.7 mg/dL Low 1.9-2.7 [facility] Comment on above: Performed By: #### L [id number] ####[facility] ([facility])[address] [place] [address] MANUAL DIFFERENTIALon 2024 ACANTHOCYTES PRESENCE IN BLOOD BY LIGHT MICROSCOPY Moderate Normal [facility] Comment on above: Performed By: #### L [id number] ####[facility] ([facility])[address] [place] [address] ANISOCYTOSIS PRESENCE IN BLOOD BY LIGHT MICROSCOPY Moderate Normal [facility] Comment on above: Performed By: #### L [id number] ####[facility] ([facility])[address] [place] [address] BASOPHILS (10*3/UL) IN BLOOD BY CALCULATION 0.03 10*3/uL Normal 0.00-0.20 [facility] Comment on above: Performed By: #### L [id number] ####[facility] ([facility])[address] [place] [address] BASOPHILS/100 LEUKOCYTES IN BLOOD BY AUTOMATED COUNT 0.5 % Normal 0.0-1.0 [facility] Comment on above: Performed By: #### L [id number] ####[facility] ([facility])[address] [place] [address] HAMZAH CELLS PRESENCE IN BLOOD BY LIGHT MICROSCOPY Slight Normal [facility] Comment on above: Performed By: #### L [id number] ####[facility] ([facility])[address] [place] [address] EOSINOPHILS (10*3/UL) IN BLOOD BY CALCULATION 0.23 10*3/uL Normal 0.00-0.50 [facility] Comment on above: Performed By: #### L [id number] ####[facility] ([facility])[address] [place] [address] EOSINOPHILS/100 LEUKOCYTES IN BLOOD BY AUTOMATED COUNT 3.6 % Normal 0.0-6.0 [facility] Comment on above: Performed By: #### L [id number] ####[facility] ([facility])[address] [place] [address] IMMATURE GRANULOCYTES (10*3/UL) IN BLOOD BY CALCULATION 0.05 10*3/uL Normal 0.00-0.20 [facility] Comment on above: Performed By: #### L [id number] ####[facility] ([facility])[address] [place] [address] IMMATURE GRANULOCYTES/100 LEUKOCYTES IN BLOOD BY AUTOMATED COUNT 0.8 % Normal 0.0-1.0 [facility] Comment on above: Performed By: #### L [id number] ####[facility] ([facility])[address] [place] [address] LYMPHOCYTES (10*3/UL) IN BLOOD BY CALCULATION 0.90 10*3/uL Low 1.20-4.00 [facility] Comment on above: Performed By: #### L [id number] ####[facility] ([facility])[address] [place] [address] LYMPHOCYTES/100 LEUKOCYTES IN BLOOD BY AUTOMATED COUNT 14.2 % Low 20.0-45.0 [facility] Comment on above: Performed By: #### L [id number] ####[facility] ([facility])[address] [place] [address] MONOCYTES (10*3/UL) IN BLOOD BY CALCUATION 0.78 10*3/uL Normal 0.10-1.00 [facility] Comment on above: Performed By: #### L [id number] ####[facility] [place] [address] MONOCYTES/100 LEUKOCYTES IN BLOOD BY AUTOMATED COUNT 12.3 % High 5.0-12.0 [facility] Comment on above: Performed By: #### L [id number] ####[facility] ([facility])[address] [place] [address] NEUTROPHILS (10*3/UL) IN BLOOD BY CALCULATION 4.3 10*3/uL Normal 1.6-7.6 [facility] Comment on above: Performed By: #### L [id number] ####[facility] ([facility])[address] [place] [address] NEUTROPHILS/100 LEUKOCYTES IN BLOOD BY AUTOMATED COUNT 68.6 % Normal 40.0-72.0 [facility] Comment on above: Performed By: #### L [id number] ####[facility] ([facility])[address] [place] [address] POIKILOCYTOSIS (PRESENCE) IN BLOOD BY LIGHT MICROSCOPY Marked Normal [facility] Comment on above: Performed By: #### L [id number] ####[facility] ([facility])[address] [place] [address] POLYCHROMASIA IN BLOOD BY LIGHT MICROSCOPY Slight Normal [facility] Comment on above: Performed By: #### L [id number] ####[facility] ([facility])[address] [place] [address] SCHISTOCYTES (PRESENCE) IN BLOOD BY LIGHT MICROSCOPY Moderate Normal [facility] Comment on above: Performed By: #### L [id number] ####[facility] ([facility])[address] [place] [address] NURSNOTEon 10-04-2024 NURSNOTE Normal [facility] NURSNOTE Normal [facility] PHOSPHORUSon 10-04-2024 Magnesium [Mass/Vol] 2.8 mg/dL Normal 2.5-5.0 [facility] Comment on above: Performed By: #### L [id number] ####[facility] ([facility])[address] [place] [address] POCT GLUCOSE METER UNSOLICIT ED RESULTSon 10-04-2024 Glucose [Mass/Vol] 114 mg/dL High 70-105 [facility] Comment on above: Order Comment: Waive d Testing in the ED is performed under the ED CLIA certificate #[id number]. Result Comment: [email or web address] Performed By: #### L [id number] ####[facility] ([facility])[address] [place] [address] Glucose [Mass/Vol] 119 mg/dL High 70-105 [facility] Comment on above: Order Comment: Waive d Testing in the ED is performed under the ED CLIA certificate #[id number]. Result Comment: [email or web address] Performed By: #### L [id number] ####[facility] ([facility])[address] [place] [address] 30on 10-03-2024 30 Normal [facility] AMMONIAon 10-03-2024 AMMONIA (UMOL/L) IN PLASMA 48 umol/L Normal 18-72 [facility] Comment on above: Performed By: #### L [id number] ####[facility] ([facility])[address] [place] [address] ANTI-XA (HEPARIN LEVEL)on HEPARIN UNFRACTIONATED (U/ML) IN PPP BY CHROMOGENIC METHOD 0.30 IU/mL Normal 0.3-0.7 [facility] Comment on above: Order Comment: Check anti-Xa level every 6 hours while on heparin infusion, or per protocol. Result Comment: Padmini roxaban and Apixaban will interfere with the anti Xa assay used to monitor UFH and LMWH. Performed By: #### L [id number] ####[facility] ([facility])[address] [place] [address] HEPARIN UNFRACTIONATED (U/ML) IN PPP BY CHROMOGENIC METHOD 0.40 IU/mL Normal 0.3-0.7 [facility] Comment on above: Result Comment: Padmini roxaban and Apixaban will interfere with the anti Xa assay used to monitor UFH and LMWH. Performed By: #### L [id number] ####[facility] ([facility])[address] [place] [address] APTTon 10-03-2024 ACTIVATED PARTIAL THROMBOPLASTIN TIME IN PPP BY COAGULATION ASSAY 38.7 Seconds High 25.0-35.0 [facility] Comment on above: Result Comment: Clin ical significance of the APTT is questionable in the presence of heparin. Performed By: #### L [id number] ####[facility] ([facility])[address] [place] [address] CBC WITH AUTO DIFFERENTIALon 10-03-2024 Erythrocyte distribution width (RBC) [Ratio] 22.9 % High 11.5-15.0 [facility] Comment on above: Performed By: #### L [id number] ####[facility] ([facility])[address] [place] [address] ERYTHROCYTE MEAN CORPUSCULAR HEMOGLOBIN CONCENTRATION (G/DL) BY AUTOMATED 31.2 g/dL Low 32.0-35.[address] [facility] Comment on above: Performed By: #### L [id number] ####[facility] ([facility])[address] [place] [address] Hematocrit (Bld) [Volume fraction] 33.0 % Low 39.0-55.0 [facility] Comment on above: Performed By: #### L [id number] ####[facility] ([facility])[address] [place] [address] Hemoglobin (Bld) [Mass/Vol] 10.3 g/dL Low 13.0-17.0 [facility] Comment on above: Performed By: #### L [id number] ####[facility] ([facility])[address] [place] [address] MCH (RBC) [Entitic mass] 27.6 pg Normal 27.0-33.0 [facility] Comment on above: Performed By: #### L [id number] ####[facility] ([facility])[address] [place] [address] MCV (RBC) [Entitic vol] 88.5 fL Normal 82.0-98.0 [facility] Comment on above: Performed By: #### L [id number] ####[facility] ([facility])[address] [place] [address] NRBC (PER 100 WBCS) BY AUTOMATED COUNT 0.0 % Normal 0 [facility] Comment on above: Performed By: #### L [id number] ####[facility] ([facility])[address] [place] [address] PLATELETS (10*3/UL) IN BLOOD AUTOMATED COUNT 141 10*3/uL Low 150-400 [facility] Comment on above: Performed By: #### L [id number] ####[facility] ([facility])[address] [place] [address] RBC (Bld) [#/Vol] 3.73 10*6/uL Low 4.20-5.70 [facility] Comment on above: Performed By: #### L [id number] ####[facility] ([facility])[address] [place] [address] WBC (Bld) [#/Vol] 5.89 10*3/uL Normal 4.00-10.60 [facility] Comment on above: Performed By: #### L [id number] ####[facility] ([facility])[address] [place] [address] COMPREHENSIVE METABOLIC PANE Aldo 10-03-2024 Albumin [Mass/Vol] 3.3 g/dL Low 3.5-5.7 [facility] Comment on above: Performed By: #### L [id number] ####[facility] ([facility])[address] [place] [address] ALP [Catalytic activity/Vol] 93 U/L Normal 34-104 [facility] Comment on above: Performed By: #### L [id number] ####[facility] ([facility])[address] [place] [address] ALT [Catalytic activity/Vol] 529 U/L High 7-52 [facility] Comment on above: Performed By: #### L [id number] ####[facility] ([facility])[address] [place] [address] Anion gap [Moles/Vol] 18 mmol/L Normal 7-20 [facility] Comment on above: Performed By: #### L [id number] ####[facility] ([facility])[address] [place] [address] AST [Catalytic activity/Vol] 270 U/L High 13-39 [facility] Comment on above: Performed By: #### L [id number] ####[facility] ([facility])[address] [place] [address] Bilirubin [Mass/Vol] 1.7 mg/dL High 0.3-1.0 [facility] Comment on above: Performed By: #### L [id number] ####[facility] ([facility])[address] [place] [address] Calcium [Mass/Vol] 8.5 mg/dL Low 8.6-10.3 [facility] Comment on above: Performed By: #### L [id number] ####[facility] ([facility])[address] [place] [address] Chloride [Moles/Vol] 100 mmol/L Normal 98-107 [facility] Comment on above: Performed By: #### L [id number] ####[facility] ([facility])[address] [place] [address] CO2 [Moles/Vol] 26 mmol/L Normal 21-31 [facility] Comment on above: Performed By: #### L [id number] ####[facility] ([facility])[address] [place] [address] Creatinine [Mass/Vol] 3.08 mg/dL High 0.70-1.30 [facility] Comment on above: Performed By: #### L [id number] ####[facility] ([facility])[address] [place] [address] GLOMERULAR FILTRATION RATE ML/MIN/1.73 SQ M.PREDICTED 19.5 mL/min/1.73m*2 Low >60.[address] [facility] Comment on above: Result Comment: [facility]???s estimated glomerular filtration rate (eGFR) will [...] of individuals. Performed By: #### L [id number] ####[facility] ([facility])[address] [place] [address] Glucose [Mass/Vol] 126 mg/dL High 70-100 [facility] Comment on above: Performed By: #### L [id number] ####[facility] ([facility])[address] [place] [address] Potassium [Moles/Vol] 2.8 mmol/L Invalid Interpretation Code 3.5-5.1 [facility] Comment on above: Performed By: #### L [id number] ####[facility] ([facility])[address] [place] [address] Protein [Mass/Vol] 5.3 g/dL Low 6.0-8.3 [facility] Comment on above: Performed By: #### L [id number] ####[facility] ([facility])[address] [place] [address] Sodium [Moles/Vol] 141 mmol/L Normal 136-145 [facility] Comment on above: Performed By: #### L [id number] ####[facility] [place] [address] Urea nitrogen [Mass/Vol] 60 mg/dL High 7-25 [facility] Comment on above: Performed By: #### L [id number] ####[facility] ([facility])[address] [place] [address] UREA NITROGEN/CREATININE (MASS RATIO) IN SER/PLAS 19.5 Normal [facility] Comment on above: Performed By: #### L [id number] ####[facility] ([facility])[address] [place] [address] MAGNESIUMon 10-03-2024 Magnesium [Mass/Vol] 1.9 mg/dL Normal 1.9-2.7 [facility] Comment on above: Performed By: #### L [id number] ####[facility] ([facility])[address] [place] [address] MANUAL DIFFERENTIALon 2024 ACANTHOCYTES PRESENCE IN BLOOD BY LIGHT MICROSCOPY Moderate Normal [facility] Comment on above: Performed By: #### L [id number] ####[facility] ([facility])[address] [place] [address] ANISOCYTOSIS PRESENCE IN BLOOD BY LIGHT MICROSCOPY Moderate Normal [facility] Comment on above: Performed By: #### L [id number] ####[facility] ([facility])[address] [place] [address] BASOPHILS (10*3/UL) IN BLOOD BY CALCULATION 0.03 10*3/uL Normal 0.00-0.20 [facility] Comment on above: Performed By: #### L [id number] ####[facility] ([facility])[address] [place] [address] BASOPHILS/100 LEUKOCYTES IN BLOOD BY AUTOMATED COUNT 0.5 % Normal 0.0-1.0 [facility] Comment on above: Performed By: #### L [id number] ####[facility] ([facility])[address] [place] [address] HAMZAH CELLS PRESENCE IN BLOOD BY LIGHT MICROSCOPY Slight Normal [facility] Comment on above: Performed By: #### L [id number] ####[facility] ([facility])[address] [place] [address] EOSINOPHILS (10*3/UL) IN BLOOD BY CALCULATION 0.12 10*3/uL Normal 0.00-0.50 [facility] Comment on above: Performed By: #### L [id number] ####[facility] ([facility])[address] [place] [address] EOSINOPHILS/100 LEUKOCYTES IN BLOOD BY AUTOMATED COUNT 2.0 % Normal 0.0-6.0 [facility] Comment on above: Performed By: #### L [id number] ####[facility] ([facility])[address] [place] [address] IMMATURE GRANULOCYTES (10*3/UL) IN BLOOD BY CALCULATION 0.04 10*3/uL Normal 0.00-0.20 [facility] Comment on above: Performed By: #### L [id number] ####[facility] ([facility])[address] [place] [address] IMMATURE GRANULOCYTES/100 LEUKOCYTES IN BLOOD BY AUTOMATED COUNT 0.7 % Normal 0.0-1.0 [facility] Comment on above: Performed By: #### L [id number] ####[facility] ([facility])[address] [place] [address] LYMPHOCYTES (10*3/UL) IN BLOOD BY CALCULATION 0.80 10*3/uL Low 1.20-4.00 [facility] Comment on above: Performed By: #### L [id number] ####[facility] ([facility])[address] [place] [address] LYMPHOCYTES/100 LEUKOCYTES IN BLOOD BY AUTOMATED COUNT 13.6 % Low 20.0-45.0 [facility] Comment on above: Performed By: #### L [id number] ####[facility] ([facility])[address] [place] [address] MONOCYTES (10*3/UL) IN BLOOD BY CALCUATION 0.68 10*3/uL Normal 0.10-1.00 [facility] Comment on above: Performed By: #### L [id number] ####[facility] ([facility])[address] [place] [address] MONOCYTES/100 LEUKOCYTES IN BLOOD BY AUTOMATED COUNT 11.5 % Normal 5.0-12.0 [facility] Comment on above: Performed By: #### L [id number] ####[facility] ([facility] [place] [address] NEUTROPHILS (10*3/UL) IN BLOOD BY CALCULATION 4.2 10*3/uL Normal 1.6-7.6 [facility] Comment on above: Performed By: #### L [id number] ####[facility] ([facility])[address] [place] [address] NEUTROPHILS/100 LEUKOCYTES IN BLOOD BY AUTOMATED COUNT 71.7 % Normal 40.0-72.0 [facility] Comment on above: Performed By: #### L [id number] ####[facility] ([facility])[address] [place] [address] POIKILOCYTOSIS (PRESENCE) IN BLOOD BY LIGHT MICROSCOPY Marked Normal [facility] Comment on above: Performed By: #### L [id number] ####[facility] ([facility])[address] [place] [address] POLYCHROMASIA IN BLOOD BY LIGHT MICROSCOPY Slight Normal [facility] Comment on above: Performed By: #### L [id number] ####[facility] ([facility])[address] [place] [address] SCHISTOCYTES (PRESENCE) IN BLOOD BY LIGHT MICROSCOPY Moderate Normal [facility] Comment on above: Performed By: #### L [id number] ####[facility] ([facility])[address] [place] [address] PHOSPHORUSon 10-03-2024 Magnesium [Mass/Vol] 2.4 mg/dL Low 2.5-5.0 [facility] Comment on above: Performed By: #### L [id number] ####[facility] ([facility])[address] [place] [address] POCT GLUCOSE METER UNSOLICIT ED RESULTSon 10-03-2024 Glucose [Mass/Vol] 163 mg/dL High 70-105 [facility] Comment on above: Order Comment: Waive d Testing in the ED is performed under the ED CLIA certificate #[id number]. Result Comment: [email or web address] Performed By: #### L [id number] ####[facility] ([facility])[address] [place] [address] Glucose [Mass/Vol] 111 mg/dL High 70-105 [facility] Comment on above: Order Comment: Waive d Testing in the ED is performed under the ED CLIA certificate #[id number]. Result Comment: [email or web address] Performed By: #### L [id number] ####[facility] ([facility])[address] [place] [address] Glucose [Mass/Vol] 100 mg/dL Normal 70-105 [facility] Comment on above: Order Comment: Waive d Testing in the ED is performed under the ED CLIA certificate #[id number]. Result Comment: ezab [email or web address] Performed By: #### L [id number] ####[facility] ([facility])[address] [facility] [place] [address] Glucose [Mass/Vol] 114 mg/dL High 70-105 [facility] Comment on above: Order Comment: Waive d Testing in the ED is performed under the ED CLIA certificate #[id number]. Result Comment: [email or web address] Performed By: #### L [id number] ####[facility] ([employer])[address] [place] [address] PROTIME-INRon 10-03-2024 INR IN PPP BY COAGULATION ASSAY 2.14 High 0.90-1.10 [facility] Comment on above: Result Comment: ACCC [...] CHEST 1995;[id number]. Performed By: #### L [id number] ####[facility] ([facility])[address] [place] [address] PROTHROMBIN TIME (PT) IN PPP BY COAGULATION ASSAY 23.5 Seconds High 12.3-14.8 [facility] Comment on above: Performed By: #### L [id number] ####[facility] ([facility])[address] [place] [address] 30on 10-02-2024 30 Normal [facility] ANTI-XA (HEPARIN LEVEL)on HEPARIN UNFRACTIONATED (U/ML) IN PPP BY CHROMOGENIC METHOD >1.00 Critically high 0.3-0.7 [facility] Comment on above: Result Comment: Padmini roxaban and Apixaban will interfere with the anti Xa assay used to monitor UFH and LMWH. Performed By: #### L [id number] ####[facility] ([facility])[address] [place] [address] APTTon 10-02-2024 ACTIVATED PARTIAL THROMBOPLASTIN TIME IN PPP BY COAGULATION ASSAY 86.5 Seconds High 25.0-35.0 [facility] Comment on above: Result Comment: Clin ical significance of the APTT is questionable in the presence of heparin. Performed By: #### L [id number] ####[facility] ([facility])[address] [place] [address] BASIC METABOLIC PANELon 09-16 Anion gap [Moles/Vol] 21 mmol/L High 7-20 [facility] Comment on above: Performed By: #### L [id number] ####[facility] ([facility])[address] [place] [address] Calcium [Mass/Vol] 9.4 mg/dL Normal 8.6-10.3 [facility] Comment on above: Performed By: #### L [id number] ####[facility] ([facility])[address] [place] [address] Chloride [Moles/Vol] 100 mmol/L Normal 98-107 [facility] Comment on above: Performed By: #### L [id number] ####[facility] ([facility])[address] [place] [address] CO2 [Moles/Vol] 27 mmol/L Normal 21-31 [facility] Comment on above: Performed By: #### L [id number] ####[facility] ([facility])[address] [place] [address] Creatinine [Mass/Vol] 3.62 mg/dL High 0.70-1.30 [facility] Comment on above: Performed By: #### L [id number] ####[facility] ([facility])[address] [place] [address] GLOMERULAR FILTRATION RATE ML/MIN/1.73 SQ M.PREDICTED 16.0 mL/min/1.73m*2 Low >60.[address] [facility] Comment on above: Result Comment: [facility]???s estimated glomerular filtration rate (eGFR) will [...] of individuals. Performed By: #### L [id number] ####[facility] ([facility] [place] [address] Glucose [Mass/Vol] 110 mg/dL High 70-100 [facility] Comment on above: Performed By: #### L [id number] ####[facility] ([facility] [place] [address] Potassium [Moles/Vol] 3.4 mmol/L Low 3.5-5.1 [facility] Comment on above: Performed By: #### L [id number] ####[facility] ([facility]ER)[address] [place] [address] Sodium [Moles/Vol] 145 mmol/L Normal 136-145 [facility] Comment on above: Performed By: #### L [id number] ####[facility] ([facility])[address] [place] [address] Urea nitrogen [Mass/Vol] 71 mg/dL High 7-25 [facility] Comment on above: Performed By: #### L [id number] ####[facility] ([facility])[address] [place] [address] UREA NITROGEN/CREATININE (MASS RATIO) IN SER/PLAS 19.6 Normal [facility] Comment on above: Performed By: #### L [id number] ####[facility] ([facility])[address] [place] [address] Anion gap [Moles/Vol] 22 mmol/L High 7-20 [facility] Comment on above: Performed By: #### L [id number] ####[facility] ([facility])[address] [place] [address] Calcium [Mass/Vol] 9.2 mg/dL Normal 8.6-10.3 [facility] Comment on above: Performed By: #### L [id number] ####[facility] ([facility])[address] [place] [address] Chloride [Moles/Vol] 102 mmol/L Normal 98-107 [facility] Comment on above: Performed By: #### L [id number] ####[facility] ([facility])[address] [place] [address] CO2 [Moles/Vol] 23 mmol/L Normal 21-31 [facility] Comment on above: Performed By: #### L [id number] ####[facility] ([facility])[address] [place] [address] Creatinine [Mass/Vol] 3.65 mg/dL High 0.70-1.30 [facility] Comment on above: Performed By: #### L [id number] ####[facility] ([facility] [place] [address] GLOMERULAR FILTRATION RATE ML/MIN/1.73 SQ M.PREDICTED 15.9 mL/min/1.73m*2 Low >60.[address] [facility] Comment on above: Result Comment: [facility]???s estimated glomerular filtration rate (eGFR) will [...] of individuals. Performed By: #### L [id number] ####[facility] ([facility])[address] [place] [address] Glucose [Mass/Vol] 119 mg/dL High 70-100 [facility] Comment on above: Performed By: #### L [id number] ####[facility] ([facility])[address] [place] [address] Potassium [Moles/Vol] 4.4 mmol/L Normal 3.5-5.1 [facility] Comment on above: Performed By: #### L [id number] ####[facility] ([facility])[address] [place] [address] Sodium [Moles/Vol] 143 mmol/L Normal 136-145 [facility] Comment on above: Performed By: #### L [id number] ####[facility] ([facility] [facility] [place] [address] Urea nitrogen [Mass/Vol] 70 mg/dL High 7-25 [facility] Comment on above: Performed By: #### L [id number] ####[facility] ([facility])[address] [place] [address] UREA NITROGEN/CREATININE (MASS RATIO) IN SER/PLAS 19.2 Normal [facility] Comment on above: Performed By: #### L [id number] ####[facility] ([facility])[address] [place] [address] Anion gap [Moles/Vol] 24 mmol/L High 7-20 [facility] Comment on above: Performed By: #### L [id number] ####[facility] ([facility])[address] [place] [address] Calcium [Mass/Vol] 9.0 mg/dL Normal 8.6-10.3 [facility] Comment on above: Performed By: #### L [id number] ####[facility] ([facility])[address] [place] [address] Chloride [Moles/Vol] 100 mmol/L Normal 98-107 [facility] Comment on above: Performed By: #### L [id number] ####[facility] ([facility])[address] [place] [address] CO2 [Moles/Vol] 24 mmol/L Normal 21-31 [facility] Comment on above: Performed By: #### L [id number] ####[facility] ([facility])[address] [place] [address] Creatinine [Mass/Vol] 3.86 mg/dL High 0.70-1.30 [facility] Comment on above: Performed By: #### L [id number] ####[facility] ([facility])[address] [place] [address] GLOMERULAR FILTRATION RATE ML/MIN/1.73 SQ M.PREDICTED 14.9 mL/min/1.73m*2 Low >60.[address] [facility] Comment on above: Result Comment: [facility]???s estimated glomerular filtration rate (eGFR) will [...] of individuals. Performed By: #### L [id number] ####[facility] ([facility])[address] [place] [address] Glucose [Mass/Vol] 115 mg/dL High 70-100 [facility] Comment on above: Performed By: #### L [id number] ####[facility] ([facility])[address] [place] [address] Potassium [Moles/Vol] 3.2 mmol/L Low 3.5-5.1 [facility] Comment on above: Performed By: #### L [id number] ####[facility] ([facility])[address] [place] [address] Sodium [Moles/Vol] 145 mmol/L Normal 136-145 [facility] Comment on above: Performed By: #### L [id number] ####[facility] ([facility])[address] [place] [address] Urea nitrogen [Mass/Vol] 72 mg/dL High 7-25 [facility] Comment on above: Performed By: #### L [id number] ####[facility] ([facility])[address] [place] [address] UREA NITROGEN/CREATININE (MASS RATIO) IN SER/PLAS 18.7 Normal [facility] Comment on above: Performed By: #### L [id number] ####[facility] ([facility])[address] [place] [address] CBC WITH AUTO DIFFERENTIALon 10-02-2024 Erythrocyte distribution width (RBC) [Ratio] 23.3 % High 11.5-15.0 [facility] Comment on above: Performed By: #### L [id number] ####[facility] ([facility])[address] [place] [address] ERYTHROCYTE MEAN CORPUSCULAR HEMOGLOBIN CONCENTRATION (G/DL) BY AUTOMATED 30.7 g/dL Low 32.0-35.[address] [facility] Comment on above: Performed By: #### L [id number] ####[facility] ([facility])[address] [place] [address] Hematocrit (Bld) [Volume fraction] 37.5 % Low 39.0-55.0 [facility] Comment on above: Performed By: #### L [id number] ####[facility] ([facility])[address] [place] [address] Hemoglobin (Bld) [Mass/Vol] 11.5 g/dL Low 13.0-17.0 [facility] Comment on above: Performed By: #### L [id number] ####[facility] ([facility])[address] [place] [address] MCH (RBC) [Entitic mass] 27.3 pg Normal 27.0-33.0 [facility] Comment on above: Performed By: #### L [id number] ####[facility] ([facility])[address] [place] [address] MCV (RBC) [Entitic vol] 88.9 fL Normal 82.0-98.0 [facility] Comment on above: Performed By: #### L [id number] ####[facility] ([facility])[address] [place] [address] NRBC (PER 100 WBCS) BY AUTOMATED COUNT 0.3 % High 0 [facility] Comment on above: Performed By: #### L [id number] ####[facility] ([facility])[address] [place] [address] PLATELETS (10*3/UL) IN BLOOD AUTOMATED COUNT 162 10*3/uL Normal 150-400 [facility] Comment on above: Performed By: #### L [id number] ####[facility] ([facility])[address] [place] [address] RBC (Bld) [#/Vol] 4.22 10*6/uL Normal 4.20-5.70 [facility] Comment on above: Performed By: #### L [id number] ####[facility] ([facility])[address] [place] [address] WBC (Bld) [#/Vol] 6.99 10*3/uL Normal 4.00-10.60 [facility] Comment on above: Performed By: #### L [id number] ####[facility] ([facility])[address] [place] [address] COMPREHENSIVE METABOLIC PANE Aldo 10-02-2024 Albumin [Mass/Vol] 3.9 g/dL Normal 3.5-5.7 [facility] Comment on above: Performed By: #### L [id number] ####[facility] ([facility] [place] [address] ALP [Catalytic activity/Vol] 90 U/L Normal 34-104 [facility] Comment on above: Performed By: #### L [id number] ####[facility] ([facility] [place] [address] ALT [Catalytic activity/Vol] 758 U/L High 7-52 [facility] Comment on above: Performed By: #### L [id number] ####[facility] ([facility] [place] [address] Anion gap [Moles/Vol] 26 mmol/L High 7-20 [facility] Comment on above: Performed By: #### L [id number] ####[facility] ([facility] [place] [address] AST [Catalytic activity/Vol] 546 U/L High 13-39 [facility] Comment on above: Performed By: #### L [id number] ####[facility] ([facility])[address] [place] [address] Bilirubin [Mass/Vol] 1.7 mg/dL High 0.3-1.0 [facility] Comment on above: Performed By: #### L [id number] ####[facility] ([facility] [place] [address] Calcium [Mass/Vol] 9.3 mg/dL Normal 8.6-10.3 [facility] Comment on above: Performed By: #### L [id number] ####[facility] ([facility])[address] [place] [address] Chloride [Moles/Vol] 100 mmol/L Normal 98-107 [facility] Comment on above: Performed By: #### L [id number] ####[facility] ([facility])[address] [place] [address] CO2 [Moles/Vol] 22 mmol/L Normal 21-31 [facility] Comment on above: Performed By: #### L [id number] ####[facility] ([facility] [place] [address] Creatinine [Mass/Vol] 3.85 mg/dL High 0.70-1.30 [facility] Comment on above: Performed By: #### L [id number] ####[facility] ([facility])[address] [place] [address] GLOMERULAR FILTRATION RATE ML/MIN/1.73 SQ M.PREDICTED 14.9 mL/min/1.73m*2 Low >60.[address] [facility] Comment on above: Result Comment: [facility]???s estimated glomerular filtration rate (eGFR) will [...] of individuals. Performed By: #### L [id number] ####[facility] ([facility] [place] [address] Glucose [Mass/Vol] 95 mg/dL Normal 70-100 [facility] Comment on above: Performed By: #### L [id number] ####[facility] ([facility])[address] [place] [address] Potassium [Moles/Vol] 3.7 mmol/L Normal 3.5-5.1 [facility] Comment on above: Performed By: #### L [id number] ####[facility] ([facility])[address] [facility] [place] [address] Protein [Mass/Vol] 6.0 g/dL Normal 6.0-8.3 [facility] Comment on above: Performed By: #### L [id number] ####[facility] ([facility])[address] [place] [address] Sodium [Moles/Vol] 144 mmol/L Normal 136-145 [facility] Comment on above: Performed By: #### L [id number] ####[facility] ([facility])[address] [facility] [address] Urea nitrogen [Mass/Vol] 71 mg/dL High 7-25 [facility] Comment on above: Performed By: #### L [id number] ####[facility] ([facility])[address] [place] [address] UREA NITROGEN/CREATININE (MASS RATIO) IN SER/PLAS 18.4 Normal [facility] Comment on above: Performed By: #### L [id number] ####[facility] ([facility])[address] [place] [address] MAGNESIUMon 10-02-2024 Magnesium [Mass/Vol] 2.1 mg/dL Normal 1.9-2.7 [facility] Comment on above: Performed By: #### L [id number] ####[facility] ([facility])[address] [place] [address] MANUAL DIFFERENTIALon 2024 ACANTHOCYTES PRESENCE IN BLOOD BY LIGHT MICROSCOPY Moderate Normal [facility] Comment on above: Performed By: #### L [id number] ####[facility] ([facility])[address] [facility] [address] ANISOCYTOSIS PRESENCE IN BLOOD BY LIGHT MICROSCOPY Moderate Normal [facility] Comment on above: Performed By: #### L [id number] ####[facility] ([facility])[address] [place] [address] BASOPHILS (10*3/UL) IN BLOOD BY CALCULATION 0.02 10*3/uL Normal 0.00-0.20 [facility] Comment on above: Performed By: #### L [id number] ####[facility] ([facility])[address] [place] [address] BASOPHILS/100 LEUKOCYTES IN BLOOD BY AUTOMATED COUNT 0.3 % Normal 0.0-1.0 [facility] Comment on above: Performed By: #### L [id number] ####[facility] ([facility])[address] [place] [address] HAMZAH CELLS PRESENCE IN BLOOD BY LIGHT MICROSCOPY Slight Normal [facility] Comment on above: Performed By: #### L [id number] ####[facility] ([facility])[address] [place] [address] EOSINOPHILS (10*3/UL) IN BLOOD BY CALCULATION 0.18 10*3/uL Normal 0.00-0.50 [facility] Comment on above: Performed By: #### L [id number] ####[facility] ([facility])[address] [place] [address] EOSINOPHILS/100 LEUKOCYTES IN BLOOD BY AUTOMATED COUNT 2.6 % Normal 0.0-6.0 [facility] Comment on above: Performed By: #### L [id number] ####[facility] ([facility])[address] [place] [address] IMMATURE GRANULOCYTES (10*3/UL) IN BLOOD BY CALCULATION 0.05 10*3/uL Normal 0.00-0.20 [facility] Comment on above: Performed By: #### L [id number] ####[facility] ([facility])[address] [facility] [place] [address] IMMATURE GRANULOCYTES/100 LEUKOCYTES IN BLOOD BY AUTOMATED COUNT 0.7 % Normal 0.0-1.0 [facility] Comment on above: Performed By: #### L [id number] ####[facility] ([facility])[address] [facility] [place] [address] LYMPHOCYTES (10*3/UL) IN BLOOD BY CALCULATION 0.51 10*3/uL Low 1.20-4.00 [facility] Comment on above: Performed By: #### L [id number] ####[facility] ([facility])[address] [place] [address] LYMPHOCYTES/100 LEUKOCYTES IN BLOOD BY AUTOMATED COUNT 7.3 % Low 20.0-45.0 [facility] Comment on above: Performed By: #### L [id number] ####[facility] ([facility])[address] [place] [address] MONOCYTES (10*3/UL) IN BLOOD BY CALCUATION 0.50 10*3/uL Normal 0.10-1.00 [facility] Comment on above: Performed By: #### L [id number] ####[facility] ([facility])[address] [place] [address] MONOCYTES/100 LEUKOCYTES IN BLOOD BY AUTOMATED COUNT 7.2 % Normal 5.0-12.0 [facility] Comment on above: Performed By: #### L [id number] ####[facility] ([facility])[address] [place] [address] NEUTROPHILS (10*3/UL) IN BLOOD BY CALCULATION 5.7 10*3/uL Normal 1.6-7.6 [facility] Comment on above: Performed By: #### L [id number] ####[facility] ([facility])[address] [place] [address] NEUTROPHILS/100 LEUKOCYTES IN BLOOD BY AUTOMATED COUNT 81.9 % High 40.0-72.0 [facility] Comment on above: Performed By: #### L [id number] ####[facility] ([facility])[address] [place] [address] POIKILOCYTOSIS (PRESENCE) IN BLOOD BY LIGHT MICROSCOPY Marked Normal [facility] Comment on above: Performed By: #### L [id number] ####[facility] [place] [address] POLYCHROMASIA IN BLOOD BY LIGHT MICROSCOPY Slight Normal [facility] Comment on above: Performed By: #### L [id number] ####[facility] ([facility])[address] [facility] [place] [address] SCHISTOCYTES (PRESENCE) IN BLOOD BY LIGHT MICROSCOPY Moderate Normal [facility] Comment on above: Performed By: #### L [id number] ####[facility] ([facility])[address] [facility] [place] [address] T[employer] CELLS IN BLOOD BY LIGHT MICROSCOPY Slight Normal [facility] Comment on above: Performed By: #### L [id number] ####[facility] ([facility])[address] [facility] [place] [address] PHOSPHORUSon 10-02-2024 Magnesium [Mass/Vol] 4.0 mg/dL Normal 2.5-5.0 [facility] Comment on above: Performed By: #### L [id number] ####[facility] ([facility])[address] [facility] [place] [address] PROTIME-INRon 10-02-2024 INR IN PPP BY COAGULATION ASSAY 2.51 High 0.90-1.10 [facility] Comment on above: Result Comment: ACCC [...] CHEST 1995;[id number]. Performed By: #### L [id number] ####[facility] ([facility])[address] [place] [address] PROTHROMBIN TIME (PT) IN PPP BY COAGULATION ASSAY 26.5 Seconds High 12.3-14.8 [facility] Comment on above: Performed By: #### L [id number] ####[facility] ([facility])[address] [facility] [place] [address] 30on 10-01-2024 30 Normal [facility] 30 Normal [facility] ANAon 10-01-2024 DONNIE PATTERN Speckled Normal [facility] Comment on above: Performed By: #### L [id number] ####[facility] ([facility])[address] [place] [address] DONNIE TITER 1:40 Normal <=1:40 [facility] Comment on above: Result Comment: Test performed using [employer] IFA DONNIE Hep-2 Test, a pre-standardized assay designed for the qualitative and semi-quantitative detection of antinuclear antibodies. Performed By: #### L [id number] ####[facility] ([facility])[address] [place] [address] ANTI-SMOOTH MUSCLE ANTIBODY TITERon 10-01-2024 SMOOTH MUSCLE AB, IGG TITER <1:20 Normal <1:20 [facility] Comment on above: Result Comment: INTE RPRETIVE INFORMATION: Smooth Muscle Ab, IgG Titer Less than 1:20 ........ Negative - No antibody detected. 1:20 - 1:80 .......... Weak Positive - Suggest repeat in two to three weeks with fresh specimen. 1:160 or greater ...... Positive - Suggestive of autoimmune hepatitis or chronic active hepatitis.Performed By: [facility] [place], [place] [address]Hthwsipqoy Director: Ramona Bustillo MD, PhDCLIA Number: [id number] Performed By: #### L [id number] ####[facility] ([facility])[address] [place] [address] ANTI-XA (HEPARIN LEVEL)on HEPARIN UNFRACTIONATED (U/ML) IN PPP BY CHROMOGENIC METHOD >1.00 Critically high 0.3-0.7 [facility] Comment on above: Result Comment: [place] roxaban and Apixaban will interfere with the anti Xa assay used to monitor UFH and LMWH. Performed By: #### L [id number] ####[facility] ([facility])[address] [place] [address] BASIC METABOLIC PANELon 09-16 Anion gap [Moles/Vol] 22 mmol/L High 7-20 [facility] Comment on above: Performed By: #### L [id number] ####[facility] ([facility] [place] [address] Calcium [Mass/Vol] 9.2 mg/dL Normal 8.6-10.3 [facility] Comment on above: Performed By: #### L [id number] ####[facility] ([facility] [place] [address] Chloride [Moles/Vol] 100 mmol/L Normal 98-107 [facility] Comment on above: Performed By: #### L [id number] ####[facility] ([facility] [place] [address] CO2 [Moles/Vol] 26 mmol/L Normal 21-31 [facility] Comment on above: Performed By: #### L [id number] ####[facility] ([facility])[address] [place] [address] Creatinine [Mass/Vol] 4.08 mg/dL High 0.70-1.30 [facility] Comment on above: Performed By: #### L [id number] ####[facility] ([facility] [place] [address] GLOMERULAR FILTRATION RATE ML/MIN/1.73 SQ M.PREDICTED 13.9 mL/min/1.73m*2 Low >60.[address] [facility] Comment on above: Result Comment: [facility]???s estimated glomerular filtration rate (eGFR) will [...] of individuals. Performed By: #### L [id number] ####[facility] ([facility])[address] [place] [address] Glucose [Mass/Vol] 95 mg/dL Normal 70-100 [facility] Comment on above: Performed By: #### L [id number] ####[facility] ([facility] [place] [address] Potassium [Moles/Vol] 3.3 mmol/L Low 3.5-5.1 [facility] Comment on above: Performed By: #### L [id number] ####[facility] ([facility] [place] [address] Sodium [Moles/Vol] 145 mmol/L Normal 136-145 [facility] Comment on above: Performed By: #### L [id number] ####[facility] ([facility])[address] [place] [address] Urea nitrogen [Mass/Vol] 75 mg/dL High 7-25 [facility] Comment on above: Performed By: #### L [id number] ####[facility] ([facility])[address] [place] [address] UREA NITROGEN/CREATININE (MASS RATIO) IN SER/PLAS 18.4 Normal [facility] Comment on above: Performed By: #### L [id number] ####[facility] ([facility])[address] [place] [address] Anion gap [Moles/Vol] 24 mmol/L High 7-20 [facility] Comment on above: Performed By: #### L [id number] ####[facility] ([facility])[address] [place] [address] Calcium [Mass/Vol] 9.4 mg/dL Normal 8.6-10.3 [facility] Comment on above: Performed By: #### L [id number] ####[facility] ([facility])[address] [place] [address] Chloride [Moles/Vol] 101 mmol/L Normal 98-107 [facility] Comment on above: Performed By: #### L [id number] ####[facility] ([facility])[address] [place] [address] CO2 [Moles/Vol] 25 mmol/L Normal 21-31 [facility] Comment on above: Performed By: #### L [id number] ####[facility] ([facility] [place] [address] Creatinine [Mass/Vol] 4.01 mg/dL High 0.70-1.30 [facility] Comment on above: Performed By: #### L [id number] ####[facility] ([facility] [place] [address] GLOMERULAR FILTRATION RATE ML/MIN/1.73 SQ M.PREDICTED 14.2 mL/min/1.73m*2 Low >60.[address] [facility] Comment on above: Result Comment: [facility]???s estimated glomerular filtration rate (eGFR) will [...] of individuals. Performed By: #### L [id number] ####[facility] ([facility])[address] [place] [address] Glucose [Mass/Vol] 76 mg/dL Normal 70-100 [facility] Comment on above: Performed By: #### L [id number] ####[facility] ([facility])[address] [place] [address] Potassium [Moles/Vol] 3.5 mmol/L Normal 3.5-5.1 [facility] Comment on above: Performed By: #### L [id number] ####[facility] ([facility])[address] [place] [address] Sodium [Moles/Vol] 146 mmol/L High 136-145 [facility] Comment on above: Performed By: #### L [id number] ####[facility] ([facility])[address] [place] [address] Urea nitrogen [Mass/Vol] 78 mg/dL High 7-25 [facility] Comment on above: Performed By: #### L [id number] ####[facility] ([facility] [place] [address] UREA NITROGEN/CREATININE (MASS RATIO) IN SER/PLAS 19.5 Normal [facility] Comment on above: Performed By: #### L [id number] ####[facility] ([facility])[address] [place] [address] Anion gap [Moles/Vol] 24 mmol/L High 7-20 [facility] Comment on above: Performed By: #### L [id number] ####[facility] ([facility])[address] [place] [address] Calcium [Mass/Vol] 9.2 mg/dL Normal 8.6-10.3 [facility] Comment on above: Performed By: #### L [id number] ####[facility] ([facility])[address] [place] [address] Chloride [Moles/Vol] 103 mmol/L Normal 98-107 [facility] Comment on above: Performed By: #### L [id number] ####[facility] ([facility])[address] [place] [address] CO2 [Moles/Vol] 21 mmol/L Normal 21-31 [facility] Comment on above: Performed By: #### L [id number] ####[facility] ([facility])[address] [place] [address] Creatinine [Mass/Vol] 4.14 mg/dL High 0.70-1.30 [facility] Comment on above: Performed By: #### L [id number] ####[facility] ([facility])[address] [place] [address] GLOMERULAR FILTRATION RATE ML/MIN/1.73 SQ M.PREDICTED 13.7 mL/min/1.73m*2 Low >60.[address] [facility] Comment on above: Result Comment: [facility]???s estimated glomerular filtration rate (eGFR) will [...] of individuals. Performed By: #### L [id number] ####[facility] ([facility])[address] [place] [address] Glucose [Mass/Vol] 72 mg/dL Normal 70-100 [facility] Comment on above: Performed By: #### L [id number] ####[facility] ([facility])[address] [place] [address] Potassium [Moles/Vol] 4.0 mmol/L Normal 3.5-5.1 [facility] Comment on above: Performed By: #### L [id number] ####[facility] ([facility])[address] [place] [address] Sodium [Moles/Vol] 144 mmol/L Normal 136-145 [facility] Comment on above: Performed By: #### L [id number] ####[facility] ([facility])[address] [facility] [address] Urea nitrogen [Mass/Vol] 78 mg/dL High 7-25 [facility] Comment on above: Performed By: #### L [id number] ####[facility] ([facility])[address] [place] [address] UREA NITROGEN/CREATININE (MASS RATIO) IN SER/PLAS 18.8 Normal [facility] Comment on above: Performed By: #### L [id number] ####[facility] ([facility])[address] [place] [address] Anion gap [Moles/Vol] 20 mmol/L Normal 7-20 [facility] Comment on above: Performed By: #### L [id number] ####[facility] ([facility])[address] [place] [address] Calcium [Mass/Vol] 9.2 mg/dL Normal 8.6-10.3 [facility] Comment on above: Performed By: #### L [id number] ####[facility] ([facility])[address] [place] [address] Chloride [Moles/Vol] 102 mmol/L Normal 98-107 [facility] Comment on above: Performed By: #### L [id number] ####[facility] ([facility])[address] [place] [address] CO2 [Moles/Vol] 25 mmol/L Normal 21-31 [facility] Comment on above: Performed By: #### L [id number] ####[facility] ([facility])[address] [place] [address] Creatinine [Mass/Vol] 4.10 mg/dL High 0.70-1.30 [facility] Comment on above: Performed By: #### L [id number] ####[facility] ([facility])[address] [place] [address] GLOMERULAR FILTRATION RATE ML/MIN/1.73 SQ M.PREDICTED 13.8 mL/min/1.73m*2 Low >60.[address] [facility] Comment on above: Result Comment: [facility]???s estimated glomerular filtration rate (eGFR) will [...] of individuals. Performed By: #### L [id number] ####[facility] ([facility])[address] [place] [address] Glucose [Mass/Vol] 70 mg/dL Normal 70-100 [facility] Comment on above: Performed By: #### L [id number] ####[facility] ([facility])[address] [place] [address] Potassium [Moles/Vol] 4.1 mmol/L Normal 3.5-5.1 [facility] Comment on above: Performed By: #### L [id number] ####[facility] ([facility])[address] [place] [address] Sodium [Moles/Vol] 143 mmol/L Normal 136-145 [facility] Comment on above: Performed By: #### L [id number] ####[facility] ([facility])[address] [place] [address] Urea nitrogen [Mass/Vol] 77 mg/dL High 7-25 [facility] Comment on above: Performed By: #### L [id number] ####[facility] ([facility])[address] [place] [address] UREA NITROGEN/CREATININE (MASS RATIO) IN SER/PLAS 18.8 Normal [facility] Comment on above: Performed By: #### L [id number] ####[facility] ([facility])[address] [place] [address] CBC WITH AUTO DIFFERENTIALon 10-01-2024 Erythrocyte distribution width (RBC) [Ratio] 23.0 % High 11.5-15.0 [facility] Comment on above: Performed By: #### L [id number] ####[facility] ([facility] [place] [address] ERYTHROCYTE MEAN CORPUSCULAR HEMOGLOBIN CONCENTRATION (G/DL) BY AUTOMATED 30.8 g/dL Low 32.0-35.[address] [facility] Comment on above: Performed By: #### L [id number] ####[facility] ([facility])[address] [place] [address] Hematocrit (Bld) [Volume fraction] 34.4 % Low 39.0-55.0 [facility] Comment on above: Performed By: #### L [id number] ####[facility] ([facility])[address] [place] [address] Hemoglobin (Bld) [Mass/Vol] 10.6 g/dL Low 13.0-17.0 [facility] Comment on above: Performed By: #### L [id number] ####[facility] ([facility])[address] [place] [address] MCH (RBC) [Entitic mass] 27.7 pg Normal 27.0-33.0 [facility] Comment on above: Performed By: #### L [id number] ####[facility] ([facility])[address] [place] [address] MCV (RBC) [Entitic vol] 89.8 fL Normal 82.0-98.0 [facility] Comment on above: Performed By: #### L [id number] ####[facility] ([facility])[address] [place] [address] NRBC (PER 100 WBCS) BY AUTOMATED COUNT 0.7 % High 0 [facility] Comment on above: Performed By: #### L [id number] ####[facility] ([facility])[address] [place] [address] PLATELETS (10*3/UL) IN BLOOD AUTOMATED COUNT 159 10*3/uL Normal 150-400 [facility] Comment on above: Performed By: #### L [id number] ####[facility] ([facility])[address] [place] [address] RBC (Bld) [#/Vol] 3.83 10*6/uL Low 4.20-5.70 [facility] Comment on above: Performed By: #### L [id number] ####[facility] ([facility])[address] [place] [address] WBC (Bld) [#/Vol] 7.48 10*3/uL Normal 4.00-10.60 [facility] Comment on above: Performed By: #### L [id number] ####[facility] ([facility])[address] [place] [address] CMV DNA, QUANTITATIVE, NAAT, PLASMAon 10-01-2024 CMV QNT BY NAAT, PLASMA INTERP Detected Abnormal Not Detected [facility] Comment on above: Result Comment: INTE RPRETIVE INFORMATION: CMV by Quantitative NAAT, PlasmaThe quantitative range of this test is 1.54 - 7.00 log IU/mL (34.5- 10,000,000 IU/mL).An interpretation of Not Detected does not rule out the presenceof inhibitors or CMV DNA concentration below the level ofdetection of the assay. Care should be taken in the interpretationof any single viral load determination.International standardization has improved comparability of assayresults across laboratories, but discrepancies still exist due tocommutability issues with the standard.Performed By: [facility] [place], [place] [address]Dhiikbxjkc Director: Ramona Bustillo MD, PhDCLIA Number: [id number] Performed By: #### L [id number] ####[facility] ([facility])[address] [place] [address] CMV QNT BY NAAT, PLASMA IU/ML Not Quantified Normal [facility] Comment on above: Performed By: #### L [id number] ####[facility] ([facility])[address] [place] [address] CMV QNT BY NAAT, PLASMA LOG IU/ML Not Quantified Normal [facility] Comment on above: Result Comment: Not Quantified- CMV DNA was detected, but at a level below 1.54log IU/mL (34.5 IU/mL). Virus detected at a level below 1.54 logIU/mL cannot be accurately quantified by this assay. Performed By: #### L [id number] ####[facility] ([facility])[address] [place] [address] COMPREHENSIVE METABOLIC PANE Aldo 10-01-2024 Albumin [Mass/Vol] 3.3 g/dL Low 3.5-5.7 [facility] Comment on above: Performed By: #### L [id number] ####[facility] ([facility])[address] [place] [address] ALP [Catalytic activity/Vol] 73 U/L Normal 34-104 [facility] Comment on above: Performed By: #### L [id number] ####[facility] ([facility])[address] [place] [address] ALT [Catalytic activity/Vol] 1051 U/L High 7-52 [facility] Comment on above: Performed By: #### L [id number] ####[facility] ([facility])[address] [place] [address] Anion gap [Moles/Vol] 22 mmol/L High 7-20 [facility] Comment on above: Performed By: #### L [id number] ####[facility] ([facility])[address] [place] [address] AST [Catalytic activity/Vol] 1190 U/L High 13-39 [facility] Comment on above: Performed By: #### L [id number] ####[facility] ([facility])[address] [place] [address] Bilirubin [Mass/Vol] 1.6 mg/dL High 0.3-1.0 [facility] Comment on above: Performed By: #### L [id number] ####[facility] ([facility])[address] [place] [address] Calcium [Mass/Vol] 9.1 mg/dL Normal 8.6-10.3 [facility] Comment on above: Performed By: #### L [id number] ####[facility] ([facility])[address] [place] [address] Chloride [Moles/Vol] 102 mmol/L Normal 98-107 [facility] Comment on above: Performed By: #### L [id number] ####[facility] ([facility])[address] [place] [address] CO2 [Moles/Vol] 23 mmol/L Normal 21-31 [facility] Comment on above: Performed By: #### L [id number] ####[facility] ([facility])[address] [place] [address] Creatinine [Mass/Vol] 4.14 mg/dL High 0.70-1.30 [facility] Comment on above: Performed By: #### L [id number] ####[facility] ([facility])[address] [place] [address] GLOMERULAR FILTRATION RATE ML/MIN/1.73 SQ M.PREDICTED 13.7 mL/min/1.73m*2 Low >60.[address] [facility] Comment on above: Result Comment: [facility]???s estimated glomerular filtration rate (eGFR) will [...] of individuals. Performed By: #### L [id number] ####[facility] ([facility])[address] [place] [address] Glucose [Mass/Vol] 59 mg/dL Low 70-100 [facility] Comment on above: Performed By: #### L [id number] ####[facility] ([facility])[address] [place] [address] Potassium [Moles/Vol] 4.3 mmol/L Normal 3.5-5.1 [facility] Comment on above: Performed By: #### L [id number] ####[facility] ([facility])[address] [place] [address] Protein [Mass/Vol] 5.4 g/dL Low 6.0-8.3 [facility] Comment on above: Performed By: #### L [id number] ####[facility] ([facility])[address] [place] [address] Sodium [Moles/Vol] 143 mmol/L Normal 136-145 [facility] Comment on above: Performed By: #### L [id number] ####[facility] ([facility])[address] [place] [address] Urea nitrogen [Mass/Vol] 78 mg/dL High 7-25 [facility] Comment on above: Performed By: #### L [id number] ####[facility] ([facility])[address] [place] [address] UREA NITROGEN/CREATININE (MASS RATIO) IN SER/PLAS 18.8 Normal [facility] Comment on above: Performed By: #### L [id number] ####[facility] ([facility])[address] [place] [address] ANNITA-MALONE VIRUS BY QUANTI TATIVE NAAT, PLASMAon 10-01-2024 EBV QNT BY NAAT, PLASMA INTERP Not detected Normal Not Detected [facility] Comment on above: Result Comment: INTE RPRETIVE INFORMATION: EBV by Quantitative NAAT, PlasmaThe quantitative range of this test is 1.54 - 8.00 log IU/mL (35.0- 100,000,000 IU/mL).An interpretation of Not Detected does not rule out the presenceof inhibitors or EBV DNA concentration below the level ofdetection of the assay. Care should be taken in the interpretationof any single viral load determination.International standardization has improved comparability of assayresults across laboratories, but discrepancies still exist due tocommutability issues with the standard.Performed By: [facility] [place], [place] [address]Spisrpbkbu Director: Ramona Bustillo MD, PhDCLIA Number: [id number] Performed By: #### L [id number] ####[facility] ([facility])[address] [place] [address] EBV QNT BY NAAT, PLASMA IU/ML Not detected Normal [facility] Comment on above: Performed By: #### L [id number] ####[facility] ([facility] [place] [address] EBV QNT BY NAAT, PLASMA LOG IU/ML Not detected Normal [facility] Comment on above: Performed By: #### L [id number] ####[facility] ([facility])[address] [place] [address] HSV PCRon 10-01-2024 HERPES SIMPLEX VIRUS SUBTYPE SOURCE Serum Normal [facility] Comment on above: Performed By: #### L [id number] ####[facility] ([facility])[address] [place] [address] HSV 1 SUBTYPE BY PCR Not detected Normal [facility] Comment on above: Performed By: #### L [id number] ####[facility] ([facility])[address] [place] [address] HSV 2 SUBTYPE BY PCR Not detected Normal [facility] Comment on above: Result Comment: INTE RPRETIVE INFORMATION: HSV-1 and HSV-2 Subtype by PCRA negative result does not rule out the presence of PCR inhibitorsin the patient specimen or test-specific nucleic acid inconcentrations below the level of detection by this test.This test was developed and its performance characteristicsdetermined by [facility]. It has not been cleared orapproved by the [place] Food and Drug Administration. This test wasperformed in a CLIA certified laboratory and is intended forclinical purposes.Performed By: [facility] [place], [place] [address]Uupseeiscw Director: Ramona Bustillo MD, PhDCLIA Number: [id number] Performed By: #### L [id number] ####[facility] ([facility] [place] [address] LACTIC ACID, PLASMAon 2024 LACTATE (MMOL/L) IN SER/PLAS 1.5 mmol/L Normal 0.5-2.2 [facility] Comment on above: Performed By: #### L [id number] ####[facility] ([facility])[address] [place] [address] MAGNESIUMon 10-01-2024 Magnesium [Mass/Vol] 2.2 mg/dL Normal 1.9-2.7 [facility] Comment on above: Performed By: #### L [id number] ####[facility] ([facility])[address] [place] [address] MANUAL DIFFERENTIALon 2024 ACANTHOCYTES PRESENCE IN BLOOD BY LIGHT MICROSCOPY Moderate Normal [facility] Comment on above: Performed By: #### L [id number] ####[facility] ([facility])[address] [place] [address] ANISOCYTOSIS PRESENCE IN BLOOD BY LIGHT MICROSCOPY Moderate Normal [facility] Comment on above: Performed By: #### L [id number] ####[facility] ([facility])[address] [place] [address] BASOPHILS (10*3/UL) IN BLOOD BY CALCULATION 0.02 10*3/uL Normal 0.00-0.20 [facility] Comment on above: Performed By: #### L [id number] ####[facility] ([facility])[address] [facility] [address] BASOPHILS/100 LEUKOCYTES IN BLOOD BY AUTOMATED COUNT 0.3 % Normal 0.0-1.0 [facility] Comment on above: Performed By: #### L [id number] ####[facility] ([facility])[address] [place] [address] EOSINOPHILS (10*3/UL) IN BLOOD BY CALCULATION 0.07 10*3/uL Normal 0.00-0.50 [facility] Comment on above: Performed By: #### L [id number] ####[facility] ([facility])[address] [facility] [address] EOSINOPHILS/100 LEUKOCYTES IN BLOOD BY AUTOMATED COUNT 0.9 % Normal 0.0-6.0 [facility] Comment on above: Performed By: #### L [id number] ####[facility] ([facility])[address] [facility] [address] IMMATURE GRANULOCYTES (10*3/UL) IN BLOOD BY CALCULATION 0.07 10*3/uL Normal 0.00-0.20 [facility] Comment on above: Performed By: #### L [id number] ####[facility] ([facility])[address] [place], [place] [address] IMMATURE GRANULOCYTES/100 LEUKOCYTES IN BLOOD BY AUTOMATED COUNT 0.9 % Normal 0.0-1.0 [facility] Comment on above: Performed By: #### L [id number] ####[facility] ([facility])[address] [place] [address] LYMPHOCYTES (10*3/UL) IN BLOOD BY CALCULATION 0.56 10*3/uL Low 1.20-4.00 [facility] Comment on above: Performed By: #### L [id number] ####[facility] ([facility])[address] [place] [address] LYMPHOCYTES/100 LEUKOCYTES IN BLOOD BY AUTOMATED COUNT 7.5 % Low 20.0-45.0 [facility] Comment on above: Performed By: #### L [id number] ####[facility] ([facility])[address] [place] [address] MONOCYTES (10*3/UL) IN BLOOD BY CALCUATION 0.42 10*3/uL Normal 0.10-1.00 [facility] Comment on above: Performed By: #### L [id number] ####[facility] ([facility])[address] [place] [address] MONOCYTES/100 LEUKOCYTES IN BLOOD BY AUTOMATED COUNT 5.6 % Normal 5.0-12.0 [facility] Comment on above: Performed By: #### L [id number] ####[facility] ([facility])[address] [place] [address] NEUTROPHILS (10*3/UL) IN BLOOD BY CALCULATION 6.3 10*3/uL Normal 1.6-7.6 [facility] Comment on above: Performed By: #### L [id number] ####[facility] ([facility])[address] [place] [address] NEUTROPHILS/100 LEUKOCYTES IN BLOOD BY AUTOMATED COUNT 84.8 % High 40.0-72.0 [facility] Comment on above: Performed By: #### L [id number] ####[facility] ([facility] [place], [place] [id number] POIKILOCYTOSIS (PRESENCE) IN BLOOD BY LIGHT MICROSCOPY Moderate Normal [facility] Comment on above: Performed By: #### L [id number] ####[facility] ([facility])[address] [place] [address] POLYCHROMASIA IN BLOOD BY LIGHT MICROSCOPY Slight Normal [facility] Comment on above: Performed By: #### L [id number] ####[facility] ([facility])[address] [place] [address] SCHISTOCYTES (PRESENCE) IN BLOOD BY LIGHT MICROSCOPY Moderate Normal [facility] Comment on above: Performed By: #### L [id number] ####[facility] ([facility])[address] [place] [address] PHOSPHORUSon 10-01-2024 Magnesium [Mass/Vol] 4.5 mg/dL Normal 2.5-5.0 [facility] Comment on above: Performed By: #### L [id number] ####[facility] ([facility])[address] [place] [address] POCT GLUCOSE METER UNSOLICIT ED RESULTSon 10-01-2024 Glucose [Mass/Vol] 83 mg/dL Normal 70-105 [facility] Comment on above: Order Comment: Waive d Testing in the ED is performed under the ED CLIA certificate #[id number]. Result Comment: [email or web address] Performed By: #### L [id number] ####[facility] ([facility])[address] [place] [address] PROTIME-INRon 10-01-2024 INR IN PPP BY COAGULATION ASSAY 3.55 High 0.90-1.10 [facility] Comment on above: Result Comment: ACCC [...] CHEST 1995;[id number]. Performed By: #### L [id number] ####[facility] ([facility])[address] [facility] [place] [address] PROTHROMBIN TIME (PT) IN PPP BY COAGULATION ASSAY 34.4 Seconds High 12.3-14.8 [facility] Comment on above: Performed By: #### L [id number] ####[facility] ([facility])[address] [facility] [place] [address] SODIUM, URINE, RANDOMon 09-16 Sodium (U) [Moles/Vol] 103 mmol/L Normal [facility] Comment on above: Performed By: #### L [id number] ####[facility] ([facility])[address] [place] [address] 30on 09-30-2024 30 Normal [facility] ACETAMINOPHEN LEVELon 2024 ACETAMINOPHEN (UG/ML) IN SER/PLAS <10 Low 10-[address] [facility] Comment on above: Performed By: #### L [id number] ####[facility] ([facility])[address] [place] [address] AFB CULTUREon 09-30-2024 AFB CULTURE No growth at 42 days Normal [facility] Comment on above: Performed By: #### L [id number] ####[facility] ([facility])[address] [place] [address] AFB STAIN No acid fast bacilli seen Normal [facility] Comment on above: Performed By: #### L [id number] ####[facility] ([facility])[address] [place] [address] ALBUMIN, BODY FLUIDon 2024 ALBUMIN (G/DL) IN BODY FLUID 2.0 g/dL Normal [facility] Comment on above: Result Comment: The reference range and other method performance specifications have not been established for this test in fluids. the test result should be integrated into the clinical context for interpretation. Performed By: #### L [id number] ####[facility] ([facility])[address] [place] [address] AMMONIAon 09-30-2024 AMMONIA (UMOL/L) IN PLASMA 76 umol/L High 18-72 [facility] Comment on above: Performed By: #### L [id number] ####[facility] ([facility])[address] [place] [address] APTTon 09-30-2024 ACTIVATED PARTIAL THROMBOPLASTIN TIME IN PPP BY COAGULATION ASSAY 96.4 Seconds High 25.0-35.0 [facility] Comment on above: Order Comment: Timed lab draw, please do not draw early. Thank you. Result Comment: Clin ical significance of the APTT is questionable in the presence of heparin. Performed By: #### L [id number] ####[facility] ([facility])[address] [place] [address] ACTIVATED PARTIAL THROMBOPLASTIN TIME IN PPP BY COAGULATION ASSAY 91.6 Seconds High 25.0-35.0 [facility] Comment on above: Result Comment: Clin ical significance of the APTT is questionable in the presence of heparin. Performed By: #### L [id number] ####[facility] ([facility])[address] [place] [address] BASIC METABOLIC PANELon 09-16 Anion gap [Moles/Vol] 23 mmol/L High 7-20 [facility] Comment on above: Performed By: #### L [id number] ####[facility] ([facility])[address] [place] [address] Calcium [Mass/Vol] 9.4 mg/dL Normal 8.6-10.3 [facility] Comment on above: Performed By: #### L [id number] ####[facility] ([facility] [place] [address] Chloride [Moles/Vol] 102 mmol/L Normal 98-107 [facility] Comment on above: Performed By: #### L [id number] ####[facility] ([facility])[address] [place] [address] CO2 [Moles/Vol] 21 mmol/L Normal 21-31 [facility] Comment on above: Performed By: #### L [id number] ####[facility] ([facility])[address] [place] [address] Creatinine [Mass/Vol] 4.33 mg/dL High 0.70-1.30 [facility] Comment on above: Performed By: #### L [id number] ####[facility] ([facility])[address] [place] [address] GLOMERULAR FILTRATION RATE ML/MIN/1.73 SQ M.PREDICTED 12.9 mL/min/1.73m*2 Low >60.[address] [facility] Comment on above: Result Comment: [facility]???s estimated glomerular filtration rate (eGFR) will [...] of individuals. Performed By: #### L [id number] ####[facility] ([facility] [place] [address] Glucose [Mass/Vol] 79 mg/dL Normal 70-100 [facility] Comment on above: Performed By: #### L [id number] ####[facility] ([facility])[address] [place] [address] Potassium [Moles/Vol] 4.6 mmol/L Normal 3.5-5.1 [facility] Comment on above: Performed By: #### L [id number] ####[facility] ([facility])[address] [place] [address] Sodium [Moles/Vol] 141 mmol/L Normal 136-145 [facility] Comment on above: Performed By: #### L [id number] ####[facility] ([facility])[address] [place] [address] Urea nitrogen [Mass/Vol] 78 mg/dL High 7-25 [facility] Comment on above: Performed By: #### L [id number] ####[facility] ([facility])[address] [place] [address] UREA NITROGEN/CREATININE (MASS RATIO) IN SER/PLAS 18.0 Normal [facility] Comment on above: Performed By: #### L [id number] ####[facility] ([facility])[address] [place] [address] Anion gap [Moles/Vol] 21 mmol/L High 7-20 [facility] Comment on above: Performed By: #### L [id number] ####[facility] ([facility])[address] [place] [address] Calcium [Mass/Vol] 9.1 mg/dL Normal 8.6-10.3 [facility] Comment on above: Performed By: #### L [id number] ####[facility] ([facility])[address] [place] [address] Chloride [Moles/Vol] 100 mmol/L Normal 98-107 [facility] Comment on above: Performed By: #### L [id number] ####[facility] ([facility])[address] [place] [address] CO2 [Moles/Vol] 23 mmol/L Normal 21-31 [facility] Comment on above: Performed By: #### L [id number] ####[facility] ([facility] [place] [address] Creatinine [Mass/Vol] 4.29 mg/dL High 0.70-1.30 [facility] Comment on above: Performed By: #### L [id number] ####[facility] ([facility])[address] [place] [address] GLOMERULAR FILTRATION RATE ML/MIN/1.73 SQ M.PREDICTED 13.1 mL/min/1.73m*2 Low >60.[address] [facility] Comment on above: Result Comment: [facility]???s estimated glomerular filtration rate (eGFR) will [...] of individuals. Performed By: #### L [id number] ####[facility] ([facility])[address] [place] [address] Glucose [Mass/Vol] 86 mg/dL Normal 70-100 [facility] Comment on above: Performed By: #### L [id number] ####[facility] ([facility])[address] [place] [address] Potassium [Moles/Vol] 4.5 mmol/L Normal 3.5-5.1 [facility] Comment on above: Performed By: #### L [id number] ####[facility] ([facility])[address] [place] [address] Sodium [Moles/Vol] 139 mmol/L Normal 136-145 [facility] Comment on above: Performed By: #### L [id number] ####[facility] ([facility] [place] [address] Urea nitrogen [Mass/Vol] 76 mg/dL High 7-25 [facility] Comment on above: Performed By: #### L [id number] ####[facility] ([facility])[address] [place] [address] UREA NITROGEN/CREATININE (MASS RATIO) IN SER/PLAS 17.7 Normal [facility] Comment on above: Performed By: #### L [id number] ####[facility] ([facility])[address] [place] [address] Anion gap [Moles/Vol] 21 mmol/L High 7-20 [facility] Comment on above: Performed By: #### L [id number] ####[facility] ([facility])[address] [place] [address] Calcium [Mass/Vol] 9.5 mg/dL Normal 8.6-10.3 [facility] Comment on above: Performed By: #### L [id number] ####[facility] ([facility])[address] [place] [address] Chloride [Moles/Vol] 101 mmol/L Normal 98-107 [facility] Comment on above: Performed By: #### L [id number] ####[facility] ([facility])[address] [place] [address] CO2 [Moles/Vol] 23 mmol/L Normal 21-31 [facility] Comment on above: Performed By: #### L [id number] ####[facility] ([facility])[address] [place] [address] Creatinine [Mass/Vol] 4.31 mg/dL High 0.70-1.30 [facility] Comment on above: Performed By: #### L [id number] ####[facility] ([facility])[address] [place] [address] GLOMERULAR FILTRATION RATE ML/MIN/1.73 SQ M.PREDICTED 13.0 mL/min/1.73m*2 Low >60.[address] [facility] Comment on above: Result Comment: [facility]???s estimated glomerular filtration rate (eGFR) will [...] of individuals. Performed By: #### L [id number] ####[facility] ([facility])[address] [place] [address] Glucose [Mass/Vol] 69 mg/dL Low 70-100 [facility] Comment on above: Performed By: #### L [id number] ####[facility] ([facility])[address] [place] [address] Potassium [Moles/Vol] 4.9 mmol/L Normal 3.5-5.1 [facility] Comment on above: Performed By: #### L [id number] ####[facility] ([facility])[address] [place] [address] Sodium [Moles/Vol] 140 mmol/L Normal 136-145 [facility] Comment on above: Performed By: #### L [id number] ####[facility] ([facility])[address] [place] [address] Urea nitrogen [Mass/Vol] 76 mg/dL High 7-25 [facility] Comment on above: Performed By: #### L [id number] ####[facility] ([facility])[address] [place] [address] UREA NITROGEN/CREATININE (MASS RATIO) IN SER/PLAS 17.6 Normal [facility] Comment on above: Performed By: #### L [id number] ####[facility] ([facility])[address] [place] [address] Anion gap [Moles/Vol] 18 mmol/L Normal 7-20 [facility] Comment on above: Performed By: #### L [id number] ####[facility] ([facility])[address] [place] [address] Calcium [Mass/Vol] 9.9 mg/dL Normal 8.6-10.3 [facility] Comment on above: Performed By: #### L [id number] ####[facility] ([facility])[address] [place] [address] Chloride [Moles/Vol] 101 mmol/L Normal 98-107 [facility] Comment on above: Performed By: #### L [id number] ####[facility] ([facility])[address] [place] [address] CO2 [Moles/Vol] 23 mmol/L Normal 21-31 [facility] Comment on above: Performed By: #### L [id number] ####[facility] ([facility])[address] [place] [address] Creatinine [Mass/Vol] 4.28 mg/dL High 0.70-1.30 [facility] Comment on above: Performed By: #### L [id number] ####[facility] ([facility])[address] [place] [address] GLOMERULAR FILTRATION RATE ML/MIN/1.73 SQ M.PREDICTED 13.1 mL/min/1.73m*2 Low >60.[address] [facility] Comment on above: Result Comment: [facility]???s estimated glomerular filtration rate (eGFR) will [...] of individuals. Performed By: #### L [id number] ####[facility] ([facility])[address] [place] [address] Glucose [Mass/Vol] 78 mg/dL Normal 70-100 [facility] Comment on above: Performed By: #### L [id number] ####[facility] ([facility])[address] [place] [address] Potassium [Moles/Vol] 5.6 mmol/L High 3.5-5.1 [facility] Comment on above: Performed By: #### L [id number] ####[facility] ([facility])[address] [place] [address] Sodium [Moles/Vol] 136 mmol/L Normal 136-145 [facility] Comment on above: Performed By: #### L [id number] ####[facility] ([facility])[address] [place] [address] Urea nitrogen [Mass/Vol] 75 mg/dL High 7-25 [facility] Comment on above: Performed By: #### L [id number] ####[facility] ([facility])[address] [place] [address] UREA NITROGEN/CREATININE (MASS RATIO) IN SER/PLAS 17.5 Normal [facility] Comment on above: Performed By: #### L [id number] ####[facility] ([facility])[address] [place] [address] Anion gap [Moles/Vol] 17 mmol/L Normal 7-20 [facility] Comment on above: Performed By: #### L [id number] ####[facility] ([facility])[address] [place] [address] Calcium [Mass/Vol] 9.8 mg/dL Normal 8.6-10.3 [facility] Comment on above: Performed By: #### L [id number] ####[facility] ([facility])[address] [place] [address] Chloride [Moles/Vol] 104 mmol/L Normal 98-107 [facility] Comment on above: Performed By: #### L [id number] ####[facility] ([facility])[address] [place] [address] CO2 [Moles/Vol] 20 mmol/L Low 21-31 [facility] Comment on above: Performed By: #### L [id number] ####[facility] ([facility] [place] [address] Creatinine [Mass/Vol] 4.15 mg/dL High 0.70-1.30 [facility] Comment on above: Performed By: #### L [id number] ####[facility] ([facility])[address] [place] [address] GLOMERULAR FILTRATION RATE ML/MIN/1.73 SQ M.PREDICTED 13.6 mL/min/1.73m*2 Low >60.[address] [facility] Comment on above: Result Comment: [facility]???s estimated glomerular filtration rate (eGFR) will [...] of individuals. Performed By: #### L [id number] ####[facility] ([facility])[address] [place] [address] Glucose [Mass/Vol] 81 mg/dL Normal 70-100 [facility] Comment on above: Performed By: #### L [id number] ####[facility] ([facility])[address] [place] [address] Potassium [Moles/Vol] 5.6 mmol/L High 3.5-5.1 [facility] Comment on above: Performed By: #### L [id number] ####[facility] ([facility])[address] [place] [address] Sodium [Moles/Vol] 135 mmol/L Low 136-145 [facility] Comment on above: Performed By: #### L [id number] ####[facility] ([facility] [place] [address] Urea nitrogen [Mass/Vol] 73 mg/dL High 7-25 [facility] Comment on above: Performed By: #### L [id number] ####[facility] ([facility])[address] [facility] [place] [address] UREA NITROGEN/CREATININE (MASS RATIO) IN SER/PLAS 17.6 [facility] Comment on above: Performed By: #### L [id number] ####[facility] ([facility])[address] [place] [address] BODY FLUID CELL DIFFERENTIAL on 09-30-2024 BASOPHILS TOTAL PER COUNTED LEUKOCYTES IN BODY FLUID BY MANUAL COUNT [facility] Comment on above: Order Comment: Diffe rential performed on cytospin Performed By: #### L [id number] ####[facility] ([facility])[address] [place] [address] CELLS COUNTED TOTAL (#) IN BODY FLUID 100 [facility] Comment on above: Order Comment: Diffe rential performed on cytospin Performed By: #### L [id number] ####[facility] ([facility])[address] [place] [address] EOSINOPHILS TOTAL PER COUNTED LEUKOCYTES IN BODY FLUID BY MANUAL COUNT [facility] Comment on above: Order Comment: Diffe rential performed on cytospin Performed By: #### L [id number] ####[facility] ([facility] [facility] [place] [address] LYMPHOCYTES TOTAL PER COUNTED LEUKOCYTES IN BODY FLUID BY MANUAL COUNT 37 [facility] Comment on above: Order Comment: Diffe rential performed on cytospin Performed By: #### L [id number] ####[facility] ([facility])[address] [place] [address] MESOTHELIAL CELLS TOTAL PER COUNTED LEUKOCYTES IN BODY FLUID BY MANUAL COUN [facility] Comment on above: Order Comment: Diffe rential performed on cytospin Performed By: #### L [id number] ####[facility] ([facility])[address] [place] [address] MONOCYTES+MACROPHAG ES TOTAL PER COUNTED LEUKOCYTES IN BODY FLUID BY MANUAL 23 [facility] Comment on above: Order Comment: Diffe rential performed on cytospin Performed By: #### L [id number] ####[facility] ([facility])[address] [place] [address] NEUTROPHILS TOTAL PER COUNTED LEUKOCYTES IN BODY FLUID BY MANUAL COUNT 40 Normal [facility] Comment on above: Order Comment: Diffe rential performed on cytospin Performed By: #### L [id number] ####[facility] ([facility])[address] [facility] [place] [address] OTHER CELLS BODY FLUID (MANUAL) Normal [facility] Comment on above: Order Comment: Diffe rential performed on cytospin Performed By: #### L [id number] ####[facility] ([facility])[address] [place] [address] BODY FLUID CULTUREon 025 Bacteria identified Cx Nom (Unsp spec) No growth at 5 days Normal [facility] Comment on above: Performed By: #### L [id number] ####[facility] ([facility])[address] [place] [address] GRAM STAIN RESULT Normal [facility] Comment on above: Result Comment: Poly morphonuclear leukocytesNo organisms seenCytocentrifuge sample Performed By: #### L [id number] ####[facility] ([facility])[address] [place] [address] CBC WITH AUTO DIFFERENTIALon 09-30-2024 Erythrocyte distribution width (RBC) [Ratio] 23.0 % High 11.5-15.0 [facility] Comment on above: Performed By: #### L [id number] ####[facility] ([facility])[address] [place] [address] ERYTHROCYTE MEAN CORPUSCULAR HEMOGLOBIN CONCENTRATION (G/DL) BY AUTOMATED 28.5 g/dL Low 32.0-35.[address] [facility] Comment on above: Performed By: #### L [id number] ####[facility] ([facility] [place] [address] Hematocrit (Bld) [Volume fraction] 35.5 % Low 39.0-55.0 [facility] Comment on above: Performed By: #### L [id number] ####[facility] ([facility])[address] [place] [address] Hemoglobin (Bld) [Mass/Vol] 10.1 g/dL Low 13.0-17.0 [facility] Comment on above: Performed By: #### L [id number] ####[facility] ([facility])[address] [place] [address] MCH (RBC) [Entitic mass] 27.5 pg Normal 27.0-33.0 [facility] Comment on above: Performed By: #### L [id number] ####[facility] ([facility])[address] [place] [address] MCV (RBC) [Entitic vol] 96.7 fL Normal 82.0-98.0 [facility] Comment on above: Performed By: #### L [id number] ####[facility] ([facility])[address] [place], [place] [address] NRBC (PER 100 WBCS) BY AUTOMATED COUNT 0.6 % High 0 [facility] Comment on above: Performed By: #### L [id number] ####[facility] ([facility])[address] [place], [place] [address] PLATELETS (10*3/UL) IN BLOOD AUTOMATED COUNT 185 10*3/uL Normal 150-400 [facility] Comment on above: Performed By: #### L [id number] ####[facility] ([facility])[address] [place] [address] RBC (Bld) [#/Vol] 3.67 10*6/uL Low 4.20-5.70 [facility] Comment on above: Performed By: #### L [id number] ####[facility] ([facility])[address] [place] [address] WBC (Bld) [#/Vol] 10.01 10*3/uL Normal 4.00-10.60 [facility] Comment on above: Performed By: #### L [id number] ####[facility] ([facility])[address] [place] [address] COMPREHENSIVE METABOLIC PANE [place] 09-30-2024 Albumin [Mass/Vol] 3.6 g/dL Normal 3.5-5.7 [facility] Comment on above: Performed By: #### L [id number] ####[facility] [place] [address] ALP [Catalytic activity/Vol] 80 U/L Normal 34-104 [facility] Comment on above: Performed By: #### L [id number] ####[facility] ([facility])[address] [place] [address] ALT [Catalytic activity/Vol] 1499 U/L High 7-52 [facility] Comment on above: Performed By: #### L [id number] ####[facility] ([facility])[address] [place] [address] Anion gap [Moles/Vol] 16 mmol/L Normal 7-20 [facility] Comment on above: Performed By: #### L [id number] ####[facility] ([facility])[address] [place] [address] AST [Catalytic activity/Vol] 2953 U/L High 13-39 [facility] Comment on above: Performed By: #### L [id number] ####[facility] ([facility])[address] [place] [address] Bilirubin [Mass/Vol] 1.6 mg/dL High 0.3-1.0 [facility] Comment on above: Performed By: #### L [id number] ####[facility] [place] [address] Calcium [Mass/Vol] 10.0 mg/dL Normal 8.6-10.3 [facility] Comment on above: Performed By: #### L [id number] ####[facility] ([facility])[address] [place] [address] Chloride [Moles/Vol] 103 mmol/L Normal 98-107 [facility] Comment on above: Performed By: #### L [id number] ####[facility] ([facility])[address] [place] [address] CO2 [Moles/Vol] 22 mmol/L Normal 21-31 [facility] Comment on above: Performed By: #### L [id number] ####[facility] ([facility])[address] [place] [address] Creatinine [Mass/Vol] 4.08 mg/dL High 0.70-1.30 [facility] Comment on above: Performed By: #### L [id number] ####[facility] ([facility] [place] [address] GLOMERULAR FILTRATION RATE ML/MIN/1.73 SQ M.PREDICTED 13.9 mL/min/1.73m*2 Low >60.[address] [facility] Comment on above: Result Comment: [facility] [facility]???s estimated glomerular filtration rate (eGFR) will [...] of individuals. Performed By: #### L [id number] ####[facility] (BEAKER)[address] [place] [address] Glucose [Mass/Vol] 94 mg/dL Normal 70-100 [facility] Comment on above: Performed By: #### L [id number] ####[facility] (BEAKER)[address] [place] [address] Potassium [Moles/Vol] 5.7 mmol/L High 3.5-5.1 [facility] Comment on above: Performed By: #### L [id number] ####[facility] ([facility]AKER)[address] [place] [address] Protein [Mass/Vol] 6.2 g/dL Normal 6.0-8.3 [facility] Comment on above: Performed By: #### L [id number] ####[facility] ([facility])[address] [facility] [address] Sodium [Moles/Vol] 135 mmol/L Low 136-145 [facility] Comment on above: Performed By: #### L [id number] ####[facility] ([facility])[address] [place] [address] Urea nitrogen [Mass/Vol] 78 mg/dL High 7-25 [facility] Comment on above: Performed By: #### L [id number] ####[facility] ([facility])[address] [facility] [address] UREA NITROGEN/CREATININE (MASS RATIO) IN SER/PLAS 19.1 Normal [facility] Comment on above: Performed By: #### L [id number] ####[facility] ([facility])[address] [place] [address] CONSULTon 09-30-2024 CONSULT Normal [facility] CONSULT Normal [facility] CONSULT Normal [facility] CONSULT Normal [facility] FUNGAL CULTUREon 09-30-2024 FUNGAL SMEAR No yeast or fungal elements seen Normal [facility] Comment on above: Performed By: #### L [id number] ####[facility] ([facility])[address] [facility] [address] GLUCOSE, BODY FLUIDon 2024 GLUCOSE (MG/DL) IN BODY FLUID 95 mg/dL Normal [facility] Comment on above: Result Comment: The reference range and other method performance specifications have not been established for this test in fluids. the test result should be integrated into the clinical context for interpretation. Performed By: #### L [id number] ####[facility] ([facility])[address] [facility] [address] HEPATITIS PANEL, ACUTEon HEPATITIS A VIRUS IGM AB PRESENCE IN SER/PLAS Non-Reactive Normal Nonreactive [facility] Comment on above: Performed By: #### L [id number] ####[facility] ([facility])[address] [place] [address] HEPATITIS B VIRUS CORE AB (PRESENCE) IN SER/PLAS BY IMM Non-Reactive Normal Nonreactive [facility] Comment on above: Performed By: #### L [id number] ####[facility] ([facility])[address] [place] [address] HEPATITIS B VIRUS SURFACE AG PRESENCE IN SERUM Non-Reactive Normal Nonreactive [facility] Comment on above: Performed By: #### L [id number] ####[facility] ([facility])[address] [facility] [place] [address] HEPATITIS C VIRUS AB PRESENCE IN SERUM Non-Reactive Normal Nonreactive [facility] Comment on above: Performed By: #### L [id number] ####[facility] ([facility])[address] [place] [address] HPon 09-30-2024 HP Normal [facility] LACTATE DEHYDROGENASEon 09-16 LACTATE DEHYDROGENASE (U/L) IN SER/PLAS BY LAC->PYR RXN 1762 U/L High 140-271 [facility] Comment on above: Performed By: #### L [id number] ####[facility] ([facility])[address] [place] [address] LACTATE DEHYDROGENASE, BODY FLUIDon 09-30-2024 LACTATE DEHYDROGENASE (U/L) IN BODY FLUID BY LAC->PYR 244 U/L Normal [facility] Comment on above: Result Comment: The reference range and other method performance specifications have not been established for this test in fluids. the test result should be integrated into the clinical context for interpretation. Performed By: #### L [id number] ####[facility] ([facility])[address] [place] [address] LACTIC ACID WITH 4 HOUR REFL EXon 09-30-2024 LACTATE (MMOL/L) IN SER/PLAS 2.1 mmol/L Normal 0.5-2.2 [facility] Comment on above: Performed By: #### L [id number] ####[facility] ([facility])[address] [place] [address] LACTATE (MMOL/L) IN SER/PLAS 2.5 mmol/L High 0.5-2.2 [facility] Comment on above: Performed By: #### L [id number] ####[facility] ([facility])[address] [place] [address] MAGNESIUMon 09-30-2024 Magnesium [Mass/Vol] 2.2 mg/dL Normal 1.9-2.7 [facility] Comment on above: Performed By: #### L [id number] ####[facility] ([facility])[address] [place] [address] MANUAL DIFFERENTIALon 2024 ACANTHOCYTES PRESENCE IN BLOOD BY LIGHT MICROSCOPY Slight Normal [facility] Comment on above: Performed By: #### L [id number] ####[facility] ([facility])[address] [place] [address] ANISOCYTOSIS PRESENCE IN BLOOD BY LIGHT MICROSCOPY Marked Normal [facility] Comment on above: Performed By: #### L [id number] ####[facility] ([facility])[address] [place] [address] BASOPHILS (10*3/UL) IN BLOOD BY CALCULATION 0.03 10*3/uL Normal 0.00-0.20 [facility] Comment on above: Performed By: #### L [id number] ####[facility] ([facility])[address] [place] [address] BASOPHILS/100 LEUKOCYTES IN BLOOD BY AUTOMATED COUNT 0.3 % Normal 0.0-1.0 [facility] Comment on above: Performed By: #### L [id number] ####[facility] ([facility])[address] [facility] [place] [address] HAMZAH CELLS PRESENCE IN BLOOD BY LIGHT MICROSCOPY Slight Normal [facility] Comment on above: Performed By: #### L [id number] ####[facility] ([facility])[address] [place] [address] ELLIPTOCYTES IN BLOOD BY LIGHT MICROSCOPY Slight Normal [facility] Comment on above: Performed By: #### L [id number] ####[facility] ([facility]AKER)[address] [place] [address] EOSINOPHILS (10*3/UL) IN BLOOD BY CALCULATION 0.00 10*3/uL Normal 0.00-0.50 [facility] Comment on above: Performed By: #### L [id number] ####[facility] ([facility]AKER)[address] [place] [address] EOSINOPHILS/100 LEUKOCYTES IN BLOOD BY AUTOMATED COUNT 0.0 % Normal 0.0-6.0 [facility] Comment on above: Performed By: #### L [id number] ####[facility] ([facility] [place] [address] HYPOCHROMIA (PRESENCE) IN BLOOD BY LIGHT MICROSCOPY Slight Normal [facility] Comment on above: Performed By: #### L [id number] ####[facility] ([facility] [place] [address] IMMATURE GRANULOCYTES (10*3/UL) IN BLOOD BY CALCULATION 0.09 10*3/uL Normal 0.00-0.20 [facility] Comment on above: Performed By: #### L [id number] ####[facility] [place] [address] IMMATURE GRANULOCYTES/100 LEUKOCYTES IN BLOOD BY AUTOMATED COUNT 0.9 % Normal 0.0-1.0 [facility] Comment on above: Performed By: #### L [id number] ####[facility] ([facility]AKER)[address] [place] [address] LYMPHOCYTES (10*3/UL) IN BLOOD BY CALCULATION 0.59 10*3/uL Low 1.20-4.00 [facility] Comment on above: Performed By: #### L [id number] ####[facility] ([facility]AKER)[address] [place] [address] LYMPHOCYTES/100 LEUKOCYTES IN BLOOD BY AUTOMATED COUNT 5.9 % Low 20.0-45.0 [facility] Comment on above: Performed By: #### L [id number] ####[facility] ([facility]AKER)[address] [place] [address] MACROCYTES (PRESENCE) IN BLOOD BY LIGHT MICROSCOPY Slight Normal [facility] Comment on above: Performed By: #### L [id number] ####[facility] ([facility])[address] [place] [address] MONOCYTES (10*3/UL) IN BLOOD BY CALCUATION 0.64 10*3/uL Normal 0.10-1.00 [facility] Comment on above: Performed By: #### L [id number] ####[facility] ([facility])[address] [place] [address] MONOCYTES/100 LEUKOCYTES IN BLOOD BY AUTOMATED COUNT 6.4 % Normal 5.0-12.0 [facility] Comment on above: Performed By: #### L [id number] ####[facility] ([facility])[address] [place] [address] NEUTROPHILS (10*3/UL) IN BLOOD BY CALCULATION 8.7 10*3/uL High 1.6-7.6 [facility] Comment on above: Performed By: #### L [id number] ####[facility] ([facility])[address] [place] [address] NEUTROPHILS/100 LEUKOCYTES IN BLOOD BY AUTOMATED COUNT 86.5 % High 40.0-72.0 [facility] Comment on above: Performed By: #### L [id number] ####[facility] ([facility])[address] [place] [address] OVALOCYTES PRESENCE IN BLOOD BY LIGHT MICROSCOPY Slight Normal [facility] Comment on above: Performed By: #### L [id number] ####[facility] ([facility])[address] [place] [address] POIKILOCYTOSIS (PRESENCE) IN BLOOD BY LIGHT MICROSCOPY Marked Normal [facility] Comment on above: Performed By: #### L [id number] ####[facility] ([facility] [place] [address] POLYCHROMASIA IN BLOOD BY LIGHT MICROSCOPY Slight Normal [facility] Comment on above: Performed By: #### L [id number] ####[facility] (BEAKER)[address] [place] [address] SCHISTOCYTES (PRESENCE) IN BLOOD BY LIGHT MICROSCOPY Moderate [facility] Comment on above: Performed By: #### L [id number] ####[facility] ([facility]AKER)[address] [place] [address] NON-DIGITAL COMMENTATOR CYTOLOGY - CELLULAR EXAMon 09-30-2024 LAB AP CASE REPORT Normal [facility] Comment on above: Result Comment: Non- gynecologic Cytology Case: [id number] Provider: Hari Cabrera MD Collected: 09/30/2024 1412Ordering Location: [facility] Intensive Received: 10/01/2024 0733 CarePathologist: PAVEL Levinepecimen: Peritoneal fluid Performed By: #### L [id number] ####[facility] (BEAKER)[address] [place] [address] LAB AP CLINICAL INFORMATION [facility] Comment on above: Result Comment: Post -Op DiagnosesNo Dx found. Performed By: #### L [id number] ####[facility] ([facility]AKER)[address] [place] [address] LAB AP GROSS DESCRIPTION 6 mL hazy, yellow fluid. [facility] Comment on above: Performed By: #### L [id number] ####[facility] (BEAKER)[address] [place] [address] LAB AP REPORT FINAL DIAGNOSIS NARRATIVE [facility] Comment on above: Result Comment: A. P eritoneal fluid: - Negative for malignancy. Performed By: #### L [id number] ####[facility] ([facility]AKER)[address] [place] [address] PATHOLOGY REVIEWon PATHOLOGY REVIEW Reviewed. Normal [facility] Comment on above: Result Comment: Elec tronically signed by Leeann Deras MD on 10/01/24 at 2:05 PM. Performed By: #### L [id number] ####[facility] ([facility]AKER)[address] [place] [address] PHOSPHORUSon 09-30-2024 Magnesium [Mass/Vol] 5.1 mg/dL High 2.5-5.0 [facility] Comment on above: Performed By: #### L [id number] ####[facility] ([facility])[address] [place] [address] PROTEIN, BODY FLUIDon 2024 Protein (Body fld) [Mass/Vol] 3.4 g/dL Normal [facility] Comment on above: Result Comment: The reference range and other method performance specifications have not been established for this test in fluids. the test result should be integrated into the clinical context for interpretation. Performed By: #### L [id number] ####[facility] ([facility])[address] [place] [address] PROTEIN, TOTALon 09-30-2024 Protein [Mass/Vol] 6.1 g/dL Normal 6.0-8.3 [facility] Comment on above: Performed By: #### L [id number] ####[facility] ([facility])[address] [place] [address] PROTIME-INRon 09-30-2024 INR IN PPP BY COAGULATION ASSAY 4.67 High 0.90-1.10 [facility] Comment on above: Result Comment: ACCC [...] CHEST 1995;[id number]. Performed By: #### L [id number] ####[facility] ([facility])[address] [place] [address] PROTHROMBIN TIME (PT) IN PPP BY COAGULATION ASSAY 42.4 Seconds High 12.3-14.8 [facility] Comment on above: Performed By: #### L [id number] ####[facility] ([facility])[address] [place] [address] VANCOMYCIN TIMEDon VANCOMYCIN IN SER/PLAS - TIMED 11.8 Low 20.0-40.0 [facility] Comment on above: Performed By: #### L [id number] ####[facility] ([facility])[address] [place] [address] VENOUS BLOOD GAS WITH IONIZE D CALCIUMon 09-30-2024 Base excess Calc (BldV) [Moles/Vol] -2.2000 mmol/L Normal [facility] Comment on above: Performed By: #### L [id number] ####[facility] RESPIRAT[facility] [id number] [place] [address] [facility] CALCIUM IONIZED (MMOL/L) IN BLOOD 1.28 mmol/L Normal 1.15-1.33 [facility] Comment on above: Performed By: #### L [id number] ####[facility] RESPIRATORY [id number] [place] [address] [place] CO2 (BldV) [Partial pressure] 41 mm[Hg] Normal 40-50 [facility] Comment on above: Performed By: #### L [id number] ####[facility] RESPIRATORY [id number] [place] [address] [place] HCO3 (Bld) [Moles/Vol] 23.2 mmol/L Normal [facility] Comment on above: Performed By: #### L [id number] ####[facility] RESPIRATORY [id number] [place] [address] [place] Oxygen (BldV) [Partial pressure] 35 mm[Hg] Normal 35-45 [facility] Comment on above: Performed By: #### L [id number] ####[facility] RESPIRATORY [id number] [place] [address] [facility] OXYGEN SATURATION (%) IN VENOUS BLOOD 51.1 % Invalid Interpretation Code 65.0-75.0 [facility] Comment on above: Performed By: #### L [id number] ####[facility] RESPIRATORY [id number] [place] [address] [facility] PH OF VENOUS BLOOD 7.36 Normal 7.31-7.41 [facility] Comment on above: Performed By: #### L [id number] ####[facility] RESPIRATORY [id number] [place] [address] [facility] APTTon 09-29-2024 ACTIVATED PARTIAL THROMBOPLASTIN TIME IN PPP BY COAGULATION ASSAY 38.4 Seconds High 25.0-35.0 [facility] Comment on above: Result Comment: Clin ical significance of the APTT is questionable in the presence of heparin. Performed By: #### L [id number] ####[facility] ([facility])[address] [place] [address] B-TYPE NATRIURETIC PEPTIDEon 09-29-2024 Natriuretic peptide B (Bld) [Mass/Vol] 1142 pg/mL High 0-100 [facility] Comment on above: Performed By: #### L [id number] ####[facility] ([facility])[address] [place] [address] BASIC METABOLIC PANELon 09-16 Anion gap [Moles/Vol] 20 mmol/L Normal 7-20 [facility] Comment on above: Performed By: #### L [id number] ####[facility] ([facility])[address] [place] [address] Calcium [Mass/Vol] 9.6 mg/dL Normal 8.6-10.3 [facility] Comment on above: Performed By: #### L [id number] ####[facility] ([facility] [place] [address] Chloride [Moles/Vol] 103 mmol/L Normal 98-107 [facility] Comment on above: Performed By: #### L [id number] ####[facility] ([facility])[address] [place] [address] CO2 [Moles/Vol] 19 mmol/L Low 21-31 [facility] Comment on above: Performed By: #### L [id number] ####[facility] ([facility])[address] [place] [address] Creatinine [Mass/Vol] 4.12 mg/dL High 0.70-1.30 [facility] Comment on above: Performed By: #### L [id number] ####[facility] ([facility])[address] [place] [address] GLOMERULAR FILTRATION RATE ML/MIN/1.73 SQ M.PREDICTED 13.7 mL/min/1.73m*2 Low >60.[address] [facility] Comment on above: Result Comment: [facility]???s estimated glomerular filtration rate (eGFR) will [...] of individuals. Performed By: #### L [id number] ####[facility] ([facility])[address] [place] [address] Glucose [Mass/Vol] 117 mg/dL High 70-100 [facility] Comment on above: Performed By: #### L [id number] ####[facility] ([facility])[address] [place] [address] Potassium [Moles/Vol] 6.2 mmol/L Critically high 3.5-5.1 [facility] Comment on above: Result Comment: M-OR EVIOUS CRITICAL RESULT Performed By: #### L [id number] ####[facility] (BEAKER)[address] [place] [address] Sodium [Moles/Vol] 136 mmol/L Normal 136-145 [facility] Comment on above: Performed By: #### L [id number] ####[facility] (BEAKER)[address] [place] [address] Urea nitrogen [Mass/Vol] 73 mg/dL High 7-25 [facility] Comment on above: Performed By: #### L [id number] ####[facility] (BEAKER)[address] [place] [address] UREA NITROGEN/CREATININE (MASS RATIO) IN SER/PLAS 17.7 Normal [facility] Comment on above: Performed By: #### L [id number] ####[facility] (BEAKER)[address] [place] [address] Anion gap [Moles/Vol] 23 mmol/L High 7-20 [facility] Comment on above: Performed By: #### L [id number] ####[facility] (BEAKER)[address] [place] [address] Calcium [Mass/Vol] 9.3 mg/dL Normal 8.6-10.3 [facility] Comment on above: Performed By: #### L [id number] ####[facility] (BEAKER)[address] [place] [address] Chloride [Moles/Vol] 102 mmol/L Normal 98-107 [facility] Comment on above: Performed By: #### L [id number] ####[facility] (BEAKER)[address] [place] [address] CO2 [Moles/Vol] 20 mmol/L Low 21-31 [facility] Comment on above: Performed By: #### L [id number] ####[facility] (BEAKER)[address] [place] [address] Creatinine [Mass/Vol] 4.18 mg/dL High 0.70-1.30 [facility] Comment on above: Performed By: #### L [id number] ####[facility] ([facility] [place] [address] GLOMERULAR FILTRATION RATE ML/MIN/1.73 SQ M.PREDICTED 13.5 mL/min/1.73m*2 Low >60.[address] [facility] Comment on above: Result Comment: [facility]???s estimated glomerular filtration rate (eGFR) will [...] of individuals. Performed By: #### L [id number] ####[facility] ([facility])[address] [place] [address] Glucose [Mass/Vol] 74 mg/dL Normal 70-100 [facility] Comment on above: Performed By: #### L [id number] ####[facility] ([facility])[address] [place] [address] Potassium [Moles/Vol] 6.1 mmol/L Critically high 3.5-5.1 [facility] Comment on above: Performed By: #### L [id number] ####[facility] ([facility])[address] [place] [address] Sodium [Moles/Vol] 139 mmol/L Normal 136-145 [facility] Comment on above: Performed By: #### L [id number] ####[facility] [facility] [place] [address] Urea nitrogen [Mass/Vol] 74 mg/dL High 7-25 [facility] Comment on above: Performed By: #### L [id number] ####[facility] ([facility])[address] [place] [address] UREA NITROGEN/CREATININE (MASS RATIO) IN SER/PLAS 17.7 Normal [facility] Comment on above: Performed By: #### L [id number] ####[facility] (BEAKER)[address] [place] [address] Anion gap [Moles/Vol] 25 mmol/L High 7-20 [facility] Comment on above: Performed By: #### L [id number] ####[facility] (BEAKER)[address] [place] [address] Calcium [Mass/Vol] 7.1 mg/dL Low 8.6-10.3 [facility] Comment on above: Performed By: #### L [id number] ####[facility] (BEAKER)[address] [place] [address] Chloride [Moles/Vol] 111 mmol/L High 98-107 [facility] Comment on above: Performed By: #### L [id number] ####[facility] (BEAKER)[address] [place] [address] CO2 [Moles/Vol] 10 mmol/L Invalid Interpretation Code 21-31 [facility] Comment on above: Performed By: #### L [id number] ####[facility] (BEAKER)[address] [place] [address] Creatinine [Mass/Vol] 3.06 mg/dL High 0.70-1.30 [facility] Comment on above: Performed By: #### L [id number] ####[facility] ([facility]ER)[address] [place] [address] GLOMERULAR FILTRATION RATE ML/MIN/1.73 SQ M.PREDICTED 19.6 mL/min/1.73m*2 Low >60.[address] [facility] Comment on above: Result Comment: [facility]???s estimated glomerular filtration rate (eGFR) will [...] of individuals. Performed By: #### L [id number] ####[facility] ([facility])[address] [place] [address] Glucose [Mass/Vol] 41 mg/dL Invalid Interpretation Code 70-100 [facility] Comment on above: Performed By: #### L [id number] ####[facility] ([facility])[address] [place] [address] Potassium [Moles/Vol] 5.0 mmol/L Normal 3.5-5.1 [facility] Comment on above: Performed By: #### L [id number] ####[facility] ([facility])[address] [place] [address] Sodium [Moles/Vol] 141 mmol/L Normal 136-145 [facility] Comment on above: Performed By: #### L [id number] ####[facility] ([facility])[address] [place] [address] Urea nitrogen [Mass/Vol] 62 mg/dL High 7-25 [facility] Comment on above: Performed By: #### L [id number] ####[facility] ([facility])[address] [place] [address] UREA NITROGEN/CREATININE (MASS RATIO) IN SER/PLAS 20.3 Normal [facility] Comment on above: Performed By: #### L [id number] ####[facility] ([facility])[address] [place] [address] BLOOD CULTUREon 09-29-2024 Bacteria identified Cx Nom (Bld) No growth at [address] [facility] Comment on above: Order Comment: From a different site than #1. Performed By: #### L [id number] ####[facility] ([facility])[address] [place] [address] CBC WITH AUTO DIFFERENTIALon 09-29-2024 Erythrocyte distribution width (RBC) [Ratio] 23.3 % High 11.5-15.0 [facility] Comment on above: Performed By: #### L [id number] ####[facility] ([facility])[address] [place] [address] ERYTHROCYTE MEAN CORPUSCULAR HEMOGLOBIN CONCENTRATION (G/DL) BY AUTOMATED 28.1 g/dL Low 32.0-35.[address] [facility] Comment on above: Performed By: #### L [id number] ####[facility] ([facility] [place] [address] Hematocrit (Bld) [Volume fraction] 45.2 % Normal 39.0-55.0 [facility] Comment on above: Performed By: #### L [id number] ####[facility] ([facility])[address] [place] [address] Hemoglobin (Bld) [Mass/Vol] 12.7 g/dL Low 13.0-17.0 [facility] Comment on above: Performed By: #### L [id number] ####[facility] ([facility])[address] [place] [address] MCH (RBC) [Entitic mass] 27.6 pg Normal 27.0-33.0 [facility] Comment on above: Performed By: #### L [id number] ####[facility] ([facility])[address] [place] [address] MCV (RBC) [Entitic vol] 98.3 fL High 82.0-98.0 [facility] Comment on above: Performed By: #### L [id number] ####[facility] ([facility] [place] [address] NRBC (PER 100 WBCS) BY AUTOMATED COUNT 0.5 % High 0 [facility] Comment on above: Performed By: #### L [id number] ####[facility] ([facility])[address] [place] [address] PLATELETS (10*3/UL) IN BLOOD AUTOMATED COUNT 239 10*3/uL Normal 150-400 [facility] Comment on above: Performed By: #### L [id number] ####[facility] ([facility] [place] [address] RBC (Bld) [#/Vol] 4.60 10*6/uL Normal 4.20-5.70 [facility] Comment on above: Performed By: #### L [id number] ####[facility] ([facility])[address] [place] [address] WBC (Bld) [#/Vol] 13.18 10*3/uL High 4.00-10.60 [facility] Comment on above: Performed By: #### L [id number] ####[facility] ([facility])[address] [place] [address] CKon 09-29-2024 CREATINE KINASE (U/L) IN SER/PLAS 96.0 U/L Normal 30.0-223.0 [facility] Comment on above: Performed By: #### L [id number] ####[facility] ([facility])[address] [place] [address] CK TOTAL AND CKMBon 09-29-19 CREATINE KINASE (U/L) IN SER/PLAS 88.0 U/L Normal 30.0-223.0 [facility] Comment on above: Performed By: #### L [id number] ####[facility] ([facility])[address] [place] [address] CREATINE KINASE MB/CREATINE KINASE TOTAL BY CALCULATION 11.4 High 0.0-1.9 [facility] Comment on above: Performed By: #### L [id number] ####[facility] ([facility])[address] [place] [address] CREATINE KINASE-MB (NG/ML) IN SER/PLAS 10.0 ng/mL High 0.0-5.[address] [facility] Comment on above: Performed By: #### L [id number] ####[facility] ([facility])[address] [place] [address] COMPREHENSIVE METABOLIC PANE Aldo 09-29-2024 Albumin [Mass/Vol] 3.4 g/dL Low 3.5-5.7 [facility] Comment on above: Performed By: #### L [id number] ####[facility] ([facility])[address] [place] [address] ALP [Catalytic activity/Vol] 96 U/L Normal 34-104 [facility] Comment on above: Performed By: #### L [id number] ####[facility] ([facility])[address] [place] [address] ALT [Catalytic activity/Vol] 492 U/L High 7-52 [facility] Comment on above: Performed By: #### L [id number] ####[facility] ([facility])[address] [place] [address] Anion gap [Moles/Vol] 32 mmol/L High 7-20 [facility] Comment on above: Performed By: #### L [id number] ####[facility] ([facility])[address] [place] [address] AST [Catalytic activity/Vol] 767 U/L High 13-39 [facility] Comment on above: Performed By: #### L [id number] ####[facility] ([facility])[address] [place] [address] Bilirubin [Mass/Vol] 2.2 mg/dL High 0.3-1.0 [facility] Comment on above: Performed By: #### L [id number] ####[facility] ([facility])[address] [place] [address] Calcium [Mass/Vol] 9.6 mg/dL Normal 8.6-10.3 [facility] Comment on above: Performed By: #### L [id number] ####[facility] ([facility])[address] [place] [address] Chloride [Moles/Vol] 100 mmol/L Normal 98-107 [facility] Comment on above: Performed By: #### L [id number] ####[facility] ([facility])[address] [place] [address] CO2 [Moles/Vol] 10 mmol/L Invalid Interpretation Code 21-31 [facility] Comment on above: Performed By: #### L [id number] ####[facility] ([facility])[address] [place] [address] Creatinine [Mass/Vol] 4.06 mg/dL High 0.70-1.30 [facility] Comment on above: Performed By: #### L [id number] ####[facility] ([facility])[address] [place] [address] GLOMERULAR FILTRATION RATE ML/MIN/1.73 SQ M.PREDICTED 14.0 mL/min/1.73m*2 Low >60.[address] [facility] Comment on above: Result Comment: [facility]???s estimated glomerular filtration rate (eGFR) will [...] of individuals. Performed By: #### L [id number] ####[facility] ([facility])[address] [place] [address] Glucose [Mass/Vol] 59 mg/dL Low 70-100 [facility] Comment on above: Performed By: #### L [id number] ####[facility] ([facility])[address] [place] [address] Potassium [Moles/Vol] 6.9 mmol/L Critically high 3.5-5.1 [facility] Comment on above: Performed By: #### L [id number] ####[facility] ([facility])[address] [place] [address] Protein [Mass/Vol] 6.8 g/dL Normal 6.0-8.3 [facility] Comment on above: Performed By: #### L [id number] ####[facility] ([facility])[address] [place] [address] Sodium [Moles/Vol] 135 mmol/L Low 136-145 [facility] Comment on above: Performed By: #### L [id number] ####[facility] ([facility])[address] [place] [address] Urea nitrogen [Mass/Vol] 74 mg/dL High 7-25 [facility] Comment on above: Performed By: #### L [id number] ####[facility] ([facility])[address] [place] [address] UREA NITROGEN/CREATININE (MASS RATIO) IN SER/PLAS 18.2 Normal [facility] Comment on above: Performed By: #### L [id number] ####[facility] ([facility])[address] [place] [address] CT ABDOMEN PELVIS WO IV CONT RASTon 09-29-2024 CT ABDOMEN PELVIS WO IV CONTRAST Normal [facility] CT CHEST WO IV CONTRASTon CT CHEST WO IV CONTRAST Invalid Interpretation Code [facility] D-DIMER, QUANTITATIVEon 09-16 FIBRIN D-DIMER (UG/L FEU) IN PLATELET POOR PLASMA 18.94 mcg/mL FEU High 0.27-0.49 [facility] Comment on above: Order Comment: D-Dim er values of less than 0.50 ug/ml (FEU) are considered to be a negative predictor of thrombosis. However, the D-Dimer result should be used in conjunction with pretest probability and should not be used alone to diagnose a thrombotic event. Performed By: #### L [id number] ####[facility] ([facility])[address] [place] [address] EDPROVon 09-29-2024 EDPROV Invalid Interpretation Code [facility] EDPROV Normal [facility] FIBRIN SPLIT PRODUCTSon 09-16 FDP >20ug/mL Critically abnormal <5ug/mL, 5ug/mL, 10ug/mL [facility] Comment on above: Performed By: #### L [id number] ####[facility] ([facility])[address] [place] [address] FIBRINOGENon 09-29-2024 Magnesium [Mass/Vol] 272 mg/dL Normal 150-425 [facility] Comment on above: Performed By: #### L [id number] ####[facility] ([facility])[address] [place] [address] HPon 09-29-2024 HP Normal [facility] LACTIC ACID WITH 4 HOUR REFL EXon 09-29-2024 LACTATE (MMOL/L) IN SER/PLAS 8.1 mmol/L Critically high 0.5-2.2 [facility] Comment on above: Result Comment: Prev ious result verified on 09/29/2024 1609 on specimen/case [id number] called with component Lactate blood venous for procedure Lactic acid with 4 hour reflex with value 12.5 mmol/L. Performed By: #### L [id number] ####[facility] ([facility])[address] [place] [address] LACTATE (MMOL/L) IN SER/PLAS 10.7 mmol/L Critically high 0.5-2.2 [facility] Comment on above: Result Comment: Prev ious result verified on 09/29/2024 1609 on specimen/case [id number] called with component Lactate blood venous for procedure Lactic acid with 4 hour reflex with value 12.5 mmol/L. Performed By: #### L [id number] ####[facility] ([facility])[address] [place] [address] LACTATE (MMOL/L) IN SER/PLAS 12.5 mmol/L Critically high 0.5-2.2 [facility] Comment on above: Result Comment: Prev ious result verified on 09/29/2024 1609 on specimen/case [id number] called with component Lactate blood venous for procedure Lactic acid with 4 hour reflex with value 12.5 mmol/L. Performed By: #### L [id number] ####[facility] ([facility])[address] [place] [address] LACTATE (MMOL/L) IN SER/PLAS 12.5 mmol/L Critically high 0.5-2.2 [facility] Comment on above: Performed By: #### L [id number] ####[facility] ([facility])[address] [place] [address] MAGNESIUMon 09-29-2024 Magnesium [Mass/Vol] 1.9 mg/dL Normal 1.9-2.7 [facility] Comment on above: Performed By: #### L [id number] ####[facility] ([facility])[address] [place] [address] MANUAL DIFFERENTIALon 2024 ANISOCYTOSIS PRESENCE IN BLOOD BY LIGHT MICROSCOPY Moderate Normal [facility] Comment on above: Performed By: #### L [id number] ####[facility] ([facility])[address] [place] [address] BASOPHILS (10*3/UL) IN BLOOD BY CALCULATION 0.05 10*3/uL Normal 0.00-0.20 [facility] Comment on above: Performed By: #### L [id number] ####[facility] ([facility])[address] [place] [address] BASOPHILS/100 LEUKOCYTES IN BLOOD BY AUTOMATED COUNT 0.4 % Normal 0.0-1.0 [facility] Comment on above: Performed By: #### L [id number] ####[facility] ([facility])[address] [place] [address] HAMZAH CELLS PRESENCE IN BLOOD BY LIGHT MICROSCOPY Slight Normal [facility] Comment on above: Performed By: #### L [id number] ####[facility] ([facility])[address] [place] [address] EOSINOPHILS (10*3/UL) IN BLOOD BY CALCULATION 0.07 10*3/uL Normal 0.00-0.50 [facility] Comment on above: Performed By: #### L [id number] ####[facility] ([facility])[address] [place] [address] EOSINOPHILS/100 LEUKOCYTES IN BLOOD BY AUTOMATED COUNT 0.5 % Normal 0.0-6.0 [facility] Comment on above: Performed By: #### L [id number] ####[facility] ([facility])[address] [place] [address] IMMATURE GRANULOCYTES (10*3/UL) IN BLOOD BY CALCULATION 0.22 10*3/uL High 0.00-0.20 [facility] Comment on above: Performed By: #### L [id number] ####[facility] ([facility])[address] [place] [address] IMMATURE GRANULOCYTES/100 LEUKOCYTES IN BLOOD BY AUTOMATED COUNT 1.7 % High 0.0-1.0 [facility] Comment on above: Performed By: #### L [id number] ####[facility] ([facility])[address] [place] [address] LYMPHOCYTES (10*3/UL) IN BLOOD BY CALCULATION 0.36 10*3/uL Low 1.20-4.00 [facility] Comment on above: Performed By: #### L [id number] ####[facility] ([facility])[address] [place] [address] LYMPHOCYTES/100 LEUKOCYTES IN BLOOD BY AUTOMATED COUNT 2.7 % Low 20.0-45.0 [facility] Comment on above: Performed By: #### L [id number] ####[facility] ([facility])[address] [place] [address] MONOCYTES (10*3/UL) IN BLOOD BY CALCUATION 1.27 10*3/uL High 0.10-1.00 [facility] Comment on above: Performed By: #### L [id number] ####[facility] ([facility])[address] [place] [address] MONOCYTES/100 LEUKOCYTES IN BLOOD BY AUTOMATED COUNT 9.6 % Normal 5.0-12.0 [facility] Comment on above: Performed By: #### L [id number] ####[facility] ([facility])[address] [place] [address] NEUTROPHILS (10*3/UL) IN BLOOD BY CALCULATION 11.2 10*3/uL High 1.6-7.6 [facility] Comment on above: Performed By: #### L [id number] ####[facility] ([facility] [place] [address] NEUTROPHILS/100 LEUKOCYTES IN BLOOD BY AUTOMATED COUNT 85.1 % High 40.0-72.0 [facility] Comment on above: Performed By: #### L [id number] ####[facility] ([facility])[address] [place] [address] POIKILOCYTOSIS (PRESENCE) IN BLOOD BY LIGHT MICROSCOPY Moderate Normal [facility] Comment on above: Performed By: #### L [id number] ####[facility] ([facility])[address] [place] [address] POLYCHROMASIA IN BLOOD BY LIGHT MICROSCOPY Slight Normal [facility] Comment on above: Performed By: #### L [id number] ####[facility] ([facility])[address] [place] [address] SCHISTOCYTES (PRESENCE) IN BLOOD BY LIGHT MICROSCOPY Slight Normal [facility] Comment on above: Performed By: #### L [id number] ####[facility] ([facility])[address] [place] [address] PATHOLOGY REVIEWon PATHOLOGY REVIEW Reviewed. Normal [facility] Comment on above: Result Comment: Elec tronically signed by Leeann Deras MD on 09/30/24 at 2:55 PM. Performed By: #### L [id number] ####[facility] ([facility])[address] [place] [address] PHOSPHORUSon 09-29-2024 Magnesium [Mass/Vol] 4.9 mg/dL Normal 2.5-5.0 [facility] Comment on above: Performed By: #### L [id number] ####[facility] ([facility] [place] [address] PLATELET COUNTon 09-29-2024 PLATELETS (10*3/UL) IN BLOOD AUTOMATED COUNT 229 10*3/uL Normal 150-400 [facility] Comment on above: Performed By: #### L [id number] ####[facility] ([facility])[address] [place] [address] POCT GLUCOSE METER UNSOLICIT ED RESULTSon 09-29-2024 Glucose [Mass/Vol] 255 mg/dL High 70-105 [facility] Comment on above: Order Comment: Waive d Testing in the ED is performed under the ED CLIA certificate #[id number]. Result Comment: kareen domínguez Performed By: #### L [id number] ####[facility] ([facility])[address] [facility] [place] [address] Glucose [Mass/Vol] 75 mg/dL Normal 70-105 [facility] Comment on above: Order Comment: Waive d Testing in the ED is performed under the ED CLIA certificate #[id number]. Result Comment: kareen domínguez Performed By: #### L [id number] ####[facility] ([facility])[address] [facility] [address] PROCALCITONIN TESTon 025 PROCALCITONIN IN BLOOD 0.20 ng/mL High 0.00-0.10 [facility] Comment on above: Result Comment: Susp ected Lower Respiratory Tract Infection:0.1-0.25 ng/mL - Low likelihood for bacterial infection;Antibiotics discouraged.*>0.25 ng/mL - Increased likelihood bacterial infection;Antibiotics encouraged. Suspected Sepsis: Strongly consider initiating antibiotics in all unstable patients.0.1-0.5 ng/mL - Low likelihood for sepsis; Antibiotics discouraged.*>0.5 ng/mL - Increased likelihood sepsis; Antibiotics encouraged.>2.0 ng/mL - High risk of sepsis/septic shock; Antibiotics strongly encouraged. *Recommend retesting PCT within 6-12 hours if clinically indicated and initial PCT<0.5ng/mL Performed By: #### L [id number] ####[facility] [employer] [place] [address] PROTIME-INRon 09-29-2024 INR IN PPP BY COAGULATION ASSAY 3.94 High 0.90-1.10 [facility] Comment on above: Result Comment: ACCC [...] CHEST 1995;108:231S-246S. Performed By: #### L [id number] ####[facility] [employer])[address] [place] [address] PROTHROMBIN TIME (PT) IN PPP BY COAGULATION ASSAY 37.3 Seconds High 12.3-14.8 [facility] Comment on above: Performed By: #### L [id number] ####[facility] [employer])[address] [place] [address] TROPONIN Ion 09-29-2024 Troponin I.cardiac [Mass/Vol] 0.37 ng/mL Critically high 0.00-0.04 [facility] Comment on above: Result Comment: M-OR EVIOUS CRITICAL RESULT Performed By: #### L [id number] ####[facility] ([facility])[address] [place] [address] Troponin I.cardiac [Mass/Vol] 0.39 ng/mL Critically high 0.00-0.04 [facility] Comment on above: Performed By: #### L [id number] ####[facility] ([facility])[address] [place] [address] VENOUS BLOOD GAS WITH IONIZE D CALCIUMon 09-29-2024 Base excess Calc (BldV) [Moles/Vol] -9.9000 mmol/L Normal [facility] Comment on above: Performed By: #### L [id number] ####[facility] [id number] [place] [address] [facility] CAL[facility]UM IONIZED (MMOL/L) IN BLOOD 1.21 mmol/L Normal 1.15-1.33 [facility] Comment on above: Performed By: #### L [id number] ####[facility] [id number] [place] [address] [place] CO2 (BldV) [Partial pressure] 41 mm[Hg] Normal 40-50 [facility] Comment on above: Performed By: #### L [id number] ####[facility] RESP[facility] [id number] [place] [address] [place] HCO3 (Bld) [Moles/Vol] 17.2 mmol/L Normal [facility] Comment on above: Performed By: #### L [id number] ####[facility] RESPIRATORY [id number] [place] [address] [place] Oxygen (BldV) [Partial pressure] 24 mm[Hg] Invalid Interpretation Code 35-45 [facility] Comment on above: Performed By: #### L [id number] ####[facility] RESPIRATORY [id number] [place] [address] [place] OXYGEN SATURATION (%) IN VENOUS BLOOD 24.1 % Invalid Interpretation Code 65.0-75.0 [facility] Comment on above: Performed By: #### L [id number] ####[facility] RESPIR[facility] [id number] [place] [address] [place] PH OF VENOUS BLOOD 7.23 Low 7.31-7.41 [facility] Comment on above: Performed By: #### L [id number] ####[facility] RES[facility] [id number] [place] [address] [facility] Basic metabolic 2000 panelon 09-25-2024 Anion gap [Moles/Vol] 14 mmol/L Normal 8-15 [facility] Comment on above: Order Comment: Speci men Type: BLOOD SPECIMENOrdering Facility: [facility] Address: [address] [place] [address] Performed By: #### 2 4321-2 ####[facility] [id number] [place] [address] [place] Calcium [Mass/Vol] 9.0 mg/dL Normal 8.5-10.2 [facility] Comment on above: Order Comment: Speci men Type: BLOOD SPECIMENOrdering Facility: [facility] Address: [address] [place] [address] Performed By: #### 2 4321-2 ####[facility] [id number] [place] [address] [place] Chloride [Moles/Vol] 101 mmol/L Normal 98-107 [facility] Comment on above: Order Comment: Speci men Type: BLOOD SPECIMENOrdering Facility: [facility] Address: [address] [place] [address] Performed By: #### 2 4321-2 ####[facility] [id number] [place] [id number] [place] CO2 [Moles/Vol] 25 mmol/L Normal 22-30 [facility] Comment on above: Order Comment: Speci men Type: BLOOD SPECIMENOrdering Facility: [facility] Address: [address] [place] [address] Performed By: #### 2 4321-2 ####[facility] [id number] [place] [id number] [place] Creatinine [Mass/Vol] 3.21 mg/dL High 0.73-1.22 [facility] Comment on above: Order Comment: Dylan olvera Type: BLOOD SPECIMENOrdering Facility: [facility] Address: [address] [place] [address] Performed By: #### 2 4321-2 ####[facility] [id number] [place] [address] [place] Creatinine and Glomerular filtration rate.predicted panel (S/P/Bld) 19 mL/min/1.73m??? Low >=60 [facility] Comment on above: Order Comment: Dylan olvera Type: BLOOD SPECIMENOrdering Facility: [facility] Address: [address] [place] [address] Result Comment: Etta mated Glomerular Filtration Rate [...] actual GFR. Performed By: #### 2 4321-2 ####[facility] [id number] [place] [address] [place] Glucose [Mass/Vol] 103 mg/dL High 74-99 [facility] Comment on above: Order Comment: Dylan olvera Type: BLOOD SPECIMENOrdering Facility: [facility] Address: [address] [place] [address] Result Comment: The [place] [employer] (ADA) provides guidance for cutoff [...] Standards of Medical Care in Diabetes 2016, [place] [employer]. Diabetes Care. 2016.39(Suppl 1). Performed By: #### 2 4321-2 ####[facility] [id number] [place] [address] [place] Potassium [Moles/Vol] 3.8 mmol/L Normal 3.7-5.1 [facility] Comment on above: Order Comment: Speci men Type: BLOOD SPECIMENOrdering Facility: [facility] Address: [address] [place] [address] Performed By: #### 2 4321-2 ####[facility] LABIA [id number] [place] [address] [place] Sodium [Moles/Vol] 140 mmol/L Normal 136-144 [facility] Comment on above: Order Comment: Speci men Type: BLOOD SPECIMENOrdering Facility: [facility] Address: [address] [place] [address] Performed By: #### 2 4321-2 ####[facility] LABIA [id number] [place] [address] [place] Urea nitrogen [Mass/Vol] 67 mg/dL High 9-24 [facility] Comment on above: Order Comment: Speci men Type: BLOOD SPECIMENOrdering Facility: [facility] Address: [address] [place] [address] Performed By: #### 2 4321-2 ####[facility] [id number] [place] [id number] [place] CASE MANAGEMon 09-25-2024 CASE MANAGEM Normal [facility] CBC panel Auto (Bld)on 09-25 Erythrocyte distribution width (RBC) [Ratio] 21.0 % High 11.5-15.0 [facility] Comment on above: Order Comment: Speci men Type: BLOOD SPECIMENOrdering Facility: [facility] Address: [address] [place] [address] Performed By: #### 5 8410-2 ####[facility] [id number] [place] [address] [place] Hematocrit (Bld) [Volume fraction] 32.2 % Low 39.0-51.0 [facility] Comment on above: Order Comment: Speci men Type: BLOOD SPECIMENOrdering Facility: [facility] Address: [address] [place] [address] Performed By: #### 5 8410-2 ####[facility] [id number] [place] [address] [place] Hemoglobin (Bld) [Mass/Vol] 10.0 g/dL Low 13.0-17.0 [facility] [facility] Comment on above: Order Comment: Speci men Type: BLOOD SPECIMENOrdering Facility: [facility] Address: [address] [place] [address] Performed By: #### 5 8410-2 ####[facility] [id number] [place] [address] [place] MCH (RBC) [Entitic mass] 27.5 pg Normal 26.0-34.0 [facility] Comment on above: Order Comment: Speci men Type: BLOOD SPECIMENOrdering Facility: [facility] Address: [address] [place] [address] Performed By: #### 5 8410-2 ####[facility] [id number] [place] [address] [place] MCHC (RBC) [Mass/Vol] 31.1 g/dL Normal 30.5-36.0 [facility] Comment on above: Order Comment: Speci men Type: BLOOD SPECIMENOrdering Facility: [facility] Address: [address] [place] [address] Performed By: #### 5 8410-2 ####[facility]CL[facility] [id number] [place] [address] [place] MCV (RBC) [Entitic vol] 88.5 fL Normal 80.0-100.0 [facility] Comment on above: Order Comment: Speci men Type: BLOOD SPECIMENOrdering Facility: [facility] Address: [address] [place] [address] Performed By: #### 5 8410-2 ####[facility] [id number] [place] [address] [place] Nucleated RBC (Bld) [#/Vol] 0.06 10*3/uL High <0.01 [facility] Comment on above: Order Comment: Speci men Type: BLOOD SPECIMENOrdering Facility: [facility] Address: [address] [place] [address] Performed By: #### 5 8410-2 ####[facility] [id number] [place] [address] [place] Platelet mean volume (Bld) [Entitic vol] 10.0 fL Normal 9.0-12.7 [facility] Comment on above: Order Comment: Speci men Type: BLOOD SPECIMENOrdering Facility: [facility] Address: [address] [place] [address] Performed By: #### 5 8410-2 ####[facility] [id number] [place] [address] [place] Platelets (Bld) [#/Vol] 226 10*3/uL Normal 150-400 [facility] Comment on above: Order Comment: Speci men Type: BLOOD SPECIMENOrdering Facility: [facility] Address: [address] [place] [address] Performed By: #### 5 8410-2 ####[facility] [id number] [place] [address] [place] RBC (Bld) [#/Vol] 3.64 10*6/uL Low 4.20-6.00 [facility] [place] Comment on above: Order Comment: Speci men Type: BLOOD SPECIMENOrdering Facility: [facility] Address: [address] [place] [address] Performed By: #### 5 8410-2 ####[facility]CL[facility] [id number] [address] [address] [place] WBC (Bld) [#/Vol] 4.34 10*3/uL Normal 3.70-11.00 [facility] [place] Comment on above: Order Comment: Speci men Type: BLOOD SPECIMENOrdering Facility: [facility] Address: [address] [place] [address] Performed By: #### 5 8410-2 ####[facility] [id number] [place] [address] [place] CNDSon 09-25-2024 CNDS Normal [facility] NURSING PROGon 09-25-2024 NURSING PROG Normal [facility] NUTRITIONon 09-25-2024 NUTRITION Normal [facility] PT EDon 09-25-2024 PT ED Normal [facility] PT ED Normal [facility] THERAPY NTon 09-25-2024 THERAPY NT Normal [facility] Basic metabolic 2000 panelon 09-24-2024 Anion gap [Moles/Vol] 14 mmol/L Normal 8-15 [facility] Comment on above: Order Comment: Speci men Type: BLOOD SPECIMENOrdering Facility: [facility] Address: [address] [place] [address] Performed By: #### 2 4321-2 ####[facility] [id number] [place] [address] [place] Calcium [Mass/Vol] 9.1 mg/dL Normal 8.5-10.2 [facility] Comment on above: Order Comment: Speci men Type: BLOOD SPECIMENOrdering Facility: [facility] Address: [address] [place] [address] Performed By: #### 2 4321-2 ####[facility] [id number] [place] [address] [place] Chloride [Moles/Vol] 100 mmol/L Normal 98-107 [facility] Comment on above: Order Comment: Speci men Type: BLOOD SPECIMENOrdering Facility: [facility] Address: [address] [place] [address] Performed By: #### 2 4321-2 ####[facility] [id number] [place] [address] [place] CO2 [Moles/Vol] 27 mmol/L Normal 22-30 [facility] Comment on above: Order Comment: Speci men Type: BLOOD SPECIMENOrdering Facility: [facility] Address: [address] [place] [address] Performed By: #### 2 4321-2 ####[facility] [id number] [place] [address] [place] Creatinine [Mass/Vol] 3.31 mg/dL High 0.73-1.22 [facility] Comment on above: Order Comment: Speci men Type: BLOOD SPECIMENOrdering Facility: [facility] Address: [address] [place] [address] Performed By: #### 2 4321-2 ####[facility] [id number] [place] [address] [place] Creatinine and Glomerular filtration rate.predicted panel (S/P/Bld) 18 mL/min/1.73m??? Low >=60 [facility] Comment on above: Order Comment: Speci men Type: BLOOD SPECIMENOrdering Facility: [facility] Address: [address] [place] [address] Result Comment: Etta mated Glomerular Filtration Rate [...] actual GFR. Performed By: #### 2 4321-2 ####[facility] [id number] [place] [address] [place] Glucose [Mass/Vol] 82 mg/dL Normal 74-99 [facility] Comment on above: Order Comment: Dylan olvera Type: BLOOD SPECIMENOrdering Facility: [facility] Address: [address] [place] [address] Result Comment: The [place] [employer] (ADA) provides guidance for cutoff [...] Standards of Medical Care in Diabetes 2016, [place] [employer]. Diabetes Care. 2016.39(Suppl 1). Performed By: #### 2 4321-2 ####[facility] [id number] [place] [address] [place] Potassium [Moles/Vol] 3.6 mmol/L Low 3.7-5.1 [facility] Comment on above: Order Comment: Dylan olvera Type: BLOOD SPECIMENOrdering Facility: [facility] Address: [address] [place] [address] Performed By: #### 2 4321-2 ####[facility] [id number] [place] [address] [place] Sodium [Moles/Vol] 141 mmol/L Normal 136-144 [facility] Comment on above: Order Comment: Dylan men Type: BLOOD SPECIMENOrdering Facility: [facility] Address: [address] [place] [address] Performed By: #### 2 4321-2 ####[facility]CL[facility] [id number] [address] [address] [place] Urea nitrogen [Mass/Vol] 64 mg/dL High 9-24 [facility] Comment on above: Order Comment: Speci men Type: BLOOD SPECIMENOrdering Facility: [facility] Address: [address] [place] [address] Performed By: #### 2 4321-2 ####[facility]CL[facility] [id number] [address] [address] [place] CASE MANAGEMon 09-24-2024 CASE MANAGEM Normal [facility] CBC panel Auto (Bld)on 09-24 Erythrocyte distribution width (RBC) [Ratio] 20.6 % High 11.5-15.0 [facility] Comment on above: Order Comment: Speci men Type: BLOOD SPECIMENOrdering Facility: [facility] Address: [address] [place] [address] Performed By: #### 5 8410-2 ####[facility] [id number] [place] [address] [place] Hematocrit (Bld) [Volume fraction] 33.2 % Low 39.0-51.0 [facility] Comment on above: Order Comment: Speci men Type: BLOOD SPECIMENOrdering Facility: [facility] Address: [address] [place], [place] [address] Performed By: #### 5 8410-2 ####[facility]CL[facility] [id number] [place] [id number] [place] Hemoglobin (Bld) [Mass/Vol] 10.1 g/dL Low 13.0-17.0 [facility] Comment on above: Order Comment: Speci men Type: BLOOD SPECIMENOrdering Facility: [facility] Address: [address] [place] [address] Performed By: #### 5 8410-2 ####[facility] [id number] [place] [address] [place] MCH (RBC) [Entitic mass] 27.2 pg Normal 26.0-34.0 [facility] Comment on above: Order Comment: Speci men Type: BLOOD SPECIMENOrdering Facility: [facility] Address: [address] [place] [address] Performed By: #### 5 8410-2 ####[facility] [id number] [place] [address] [place] MCHC (RBC) [Mass/Vol] 30.4 g/dL Low 30.5-36.0 [facility] Comment on above: Order Comment: Speci men Type: BLOOD SPECIMENOrdering Facility: [facility] Address: [address] [place] [address] Performed By: #### 5 8410-2 ####[facility] [id number] [place] [address] [place] MCV (RBC) [Entitic vol] 89.2 fL Normal 80.0-100.0 [facility] Comment on above: Order Comment: Speci men Type: BLOOD SPECIMENOrdering Facility: [facility] Address: [address] [place] [address] Performed By: #### 5 8410-2 ####[facility] [id number] [place] [address] [place] Nucleated RBC (Bld) [#/Vol] 0.05 10*3/uL High <0.01 [facility] Comment on above: Order Comment: Speci men Type: BLOOD SPECIMENOrdering Facility: [facility] Address: [address] [place] [address] Performed By: #### 5 8410-2 ####[facility] [id number] [place] [address] [place] Platelet mean volume (Bld) [Entitic vol] 10.1 fL Normal 9.0-12.7 [facility] Comment on above: Order Comment: Speci men Type: BLOOD SPECIMENOrdering Facility: [facility] Address: [address] [place] [address] Performed By: #### 5 8410-2 ####[facility] [id number] [place] [address] [place] Platelets (Bld) [#/Vol] 229 10*3/uL Normal 150-400 [facility] Comment on above: Order Comment: Speci men Type: BLOOD SPECIMENOrdering Facility: [facility] Address: [address] [place] [address] Performed By: #### 5 8410-2 ####[facility] [id number] [place] [address] [place] RBC (Bld) [#/Vol] 3.72 10*6/uL Low 4.20-6.00 [facility] [place] Comment on above: Order Comment: Speci men Type: BLOOD SPECIMENOrdering Facility: [facility] Address: [address] [place] [address] Performed By: #### 5 8410-2 ####[facility] [id number] [place] [address] [place] WBC (Bld) [#/Vol] 4.45 10*3/uL Normal 3.70-11.00 [facility] [place] Comment on above: Order Comment: Speci men Type: BLOOD SPECIMENOrdering Facility: [facility] Address: [address] [place] [address] Performed By: #### 5 8410-2 ####[facility] [id number] [place] [address] [place] CONSULT PROGon 09-24-2024 CONSULT PROG Normal [facility] THERAPY NTon 09-24-2024 THERAPY NT Normal [facility] THERAPY NT Normal [facility] Basic metabolic 2000 panelon 09-23-2024 Anion gap [Moles/Vol] 15 mmol/L Normal 8-15 [facility] Comment on above: Order Comment: Speci men Type: BLOOD SPECIMENOrdering Facility: [facility] Address: [address] [place] [address] Performed By: #### 2 4321-2 ####[facility] [id number] [place] [address] [place] Calcium [Mass/Vol] 9.2 mg/dL Normal 8.5-10.2 [facility] Comment on above: Order Comment: Speci men Type: BLOOD SPECIMENOrdering Facility: [facility] Address: [address] [place] [address] Performed By: #### 2 4321-2 ####[facility] [id number] [place] [address] [place] Chloride [Moles/Vol] 96 mmol/L Low 98-107 [facility] Comment on above: Order Comment: Speci men Type: BLOOD SPECIMENOrdering Facility: [facility] Address: [address] [place] [address] Performed By: #### 2 4321-2 ####[facility] [id number] [place] [address] [place] CO2 [Moles/Vol] 27 mmol/L Normal 22-30 [facility] Comment on above: Order Comment: Speci men Type: BLOOD SPECIMENOrdering Facility: [facility] Address: [address] [place] [address] Performed By: #### 2 4321-2 ####[facility] [id number] [place] [address] [place] Creatinine [Mass/Vol] 3.64 mg/dL High 0.73-1.22 [facility] Comment on above: Order Comment: Speci men Type: BLOOD SPECIMENOrdering Facility: [facility] Address: [address] [place] [address] Performed By: #### 2 4321-2 ####[facility] [id number] [place] [address] [place] Creatinine and Glomerular filtration rate.predicted panel (S/P/Bld) 16 mL/min/1.73m??? Low >=60 [facility] Comment on above: Order Comment: Dylan olvera Type: BLOOD SPECIMENOrdering Facility: [facility] Address: [address] [place] [address] Result Comment: Etta mated Glomerular Filtration Rate [...] actual GFR. Performed By: #### 2 4321-2 ####[facility] [id number] [place] [address] [place] Glucose [Mass/Vol] 124 mg/dL High 74-99 [facility] Comment on above: Order Comment: Dylan olvera Type: BLOOD SPECIMENOrdering Facility: [facility] Address: [address] [place] [address] Result Comment: The [place] [employer] (ADA) provides guidance for cutoff [...] Standards of Medical Care in Diabetes 2016, [place] [employer]. Diabetes Care. 2016.39(Suppl 1). Performed By: #### 2 4321-2 ####[facility] [id number] [place] [address] [place] Potassium [Moles/Vol] 3.3 mmol/L Low 3.7-5.1 [facility] Comment on above: Order Comment: Speci men Type: BLOOD SPECIMENOrdering Facility: [facility] Address: [address] [place] [address] Performed By: #### 2 4321-2 ####[facility] [id number] [place] [address] [place] Sodium [Moles/Vol] 138 mmol/L Normal 136-144 [facility] Comment on above: Order Comment: Speci men Type: BLOOD SPECIMENOrdering Facility: [facility] Address: [address] [place] [address] Performed By: #### 2 4321-2 ####[facility] [id number] [place] [address] [place] Urea nitrogen [Mass/Vol] 66 mg/dL High 9-24 [facility] Comment on above: Order Comment: Speci men Type: BLOOD SPECIMENOrdering Facility: [facility] Address: [address] [place] [address] Performed By: #### 2 4321-2 ####[facility] [id number] [place] [address] [place] Anion gap [Moles/Vol] 18 mmol/L High 8-15 [facility] Comment on above: Order Comment: Speci men Type: BLOOD SPECIMENOrdering Facility: [facility] Address: [address] [place], [place] [address] Performed By: #### 2 4321-2 ####[facility] [id number] [place] [id number] [place] Calcium [Mass/Vol] 9.4 mg/dL Normal 8.5-10.2 [facility] Comment on above: Order Comment: Speci men Type: BLOOD SPECIMENOrdering Facility: [facility] Address: [address] [place] [address] Performed By: #### 2 4321-2 ####[facility] [id number] [place] [address] [place] Chloride [Moles/Vol] 97 mmol/L Low 98-107 [facility] Comment on above: Order Comment: Speci men Type: BLOOD SPECIMENOrdering Facility: [facility] Address: [address] [place] [address] Performed By: #### 2 4321-2 ####[facility] [id number] [place] [address] [place] CO2 [Moles/Vol] 24 mmol/L Normal 22-30 [facility] Comment on above: Order Comment: Speci men Type: BLOOD SPECIMENOrdering Facility: [facility] Address: [address] [place] [address] Performed By: #### 2 4321-2 ####[facility] [id number] [place] [address] [place] Creatinine [Mass/Vol] 3.86 mg/dL High 0.73-1.22 [facility] Comment on above: Order Comment: Speci men Type: BLOOD SPECIMENOrdering Facility: [facility] Address: [address] [place] [address] Performed By: #### 2 4321-2 ####[facility] [id number] [place] [address] [place] Creatinine and Glomerular filtration rate.predicted panel (S/P/Bld) 15 mL/min/1.73m??? Low >=60 [facility] Comment on above: Order Comment: Speci men Type: BLOOD SPECIMENOrdering Facility: [facility] Address: [address] [place] [address] Result Comment: Etta mated Glomerular Filtration Rate [...] actual GFR. Performed By: #### 2 4321-2 ####[facility] [id number] [place] [id number] [place] Glucose [Mass/Vol] 66 mg/dL Low 74-99 [facility] Comment on above: Order Comment: Speci men Type: BLOOD SPECIMENOrdering Facility: [facility] Address: [address] [place] [address] Result Comment: The [place] [employer] (ADA) provides guidance for cutoff [...] Standards of Medical Care in Diabetes 2016, [place] [employer]. Diabetes Care. 2016.39(Suppl 1). Performed By: #### 2 4321-2 ####[facility] [id number] [place] [id number] [place] Sodium [Moles/Vol] 139 mmol/L Normal 136-144 [facility] Comment on above: Order Comment: Speci men Type: BLOOD SPECIMENOrdering Facility: [facility] Address: [address] [place] [address] Performed By: #### 2 4321-2 ####[facility] [id number] [address] [address] [place] CASE MANAGEMon 09-23-2024 CASE MANAGEM Normal [facility] CASE MANAGEM Normal [facility] CBC panel Auto (Bld)on 09-23 Erythrocyte distribution width (RBC) [Ratio] 19.9 % High 11.5-15.0 [facility] Comment on above: Order Comment: Speci men Type: BLOOD SPECIMENOrdering Facility: [facility] Address: [address] [place] [address] Performed By: #### 5 8410-2 ####[facility] [id number] [place] [address] [place] Hematocrit (Bld) [Volume fraction] 34.1 % Low 39.0-51.0 [facility] Comment on above: Order Comment: Speci men Type: BLOOD SPECIMENOrdering Facility: [facility] Address: [address] [place] [address] Performed By: #### 5 8410-2 ####[facility] [id number] [place] [address] [place] Hemoglobin (Bld) [Mass/Vol] 10.4 g/dL Low 13.0-17.0 [facility] Comment on above: Order Comment: Speci men Type: BLOOD SPECIMENOrdering Facility: [facility] Address: [address] [place] [address] Performed By: #### 5 8410-2 ####[facility] [id number] [place] [address] [place] MCH (RBC) [Entitic mass] 27.0 pg Normal 26.0-34.0 [facility] Comment on above: Order Comment: Speci men Type: BLOOD SPECIMENOrdering Facility: [facility] Address: [address] [place] [address] Performed By: #### 5 8410-2 ####[facility] [id number] [place] [address] [place] MCHC (RBC) [Mass/Vol] 30.5 g/dL Normal 30.5-36.0 [facility] Comment on above: Order Comment: Speci men Type: BLOOD SPECIMENOrdering Facility: [facility] Address: [address] [place] [address] Performed By: #### 5 8410-2 ####[facility] [id number] [place] [address] [place] MCV (RBC) [Entitic vol] 88.6 fL Normal 80.0-100.0 [facility] Comment on above: Order Comment: Speci men Type: BLOOD SPECIMENOrdering Facility: [facility] Address: [address] [place] [address] Performed By: #### 5 8410-2 ####[facility] [id number] [place] [address] [place] Nucleated RBC (Bld) [#/Vol] 0.02 10*3/uL High <0.01 [facility] Comment on above: Order Comment: Speci men Type: BLOOD SPECIMENOrdering Facility: [facility] Address: [address] [place] [address] Performed By: #### 5 8410-2 ####[facility] [id number] [place] [address] [place] Platelet mean volume (Bld) [Entitic vol] 9.8 fL Normal 9.0-12.7 [facility] Comment on above: Order Comment: Speci men Type: BLOOD SPECIMENOrdering Facility: [facility] Address: [address] [place] [address] Performed By: #### 5 8410-2 ####[facility] [id number] [place] [address] [place] Platelets (Bld) [#/Vol] 233 10*3/uL Normal 150-400 [facility] Comment on above: Order Comment: Speci men Type: BLOOD SPECIMENOrdering Facility: [facility] Address: [address] [place] [address] Performed By: #### 5 8410-2 ####[facility] [id number] [place] [address] [place] RBC (Bld) [#/Vol] 3.85 10*6/uL Low 4.20-6.00 [facility] [place] Comment on above: Order Comment: Speci men Type: BLOOD SPECIMENOrdering Facility: [facility] Address: [address] [place] [address] Performed By: #### 5 8410-2 ####[facility] [id number] [place] [address] [place] WBC (Bld) [#/Vol] 4.76 10*3/uL Normal 3.70-11.00 [facility] [place] Comment on above: Order Comment: Speci men Type: BLOOD SPECIMENOrdering Facility: [facility] Address: [address] [place] [address] Performed By: #### 5 8410-2 ####[facility] [id number] [place] [address] [place] Erythrocyte distribution width (RBC) [Ratio] 20.1 % High 11.5-15.0 [facility] Comment on above: Order Comment: Speci men Type: BLOOD SPECIMENOrdering Facility: [facility] Address: [address] [place] [address] Performed By: #### 5 8410-2 ####[facility] [id number] [place] [address] [place] Hematocrit (Bld) [Volume fraction] 34.8 % Low 39.0-51.0 [facility] Comment on above: Order Comment: Speci men Type: BLOOD SPECIMENOrdering Facility: [facility] Address: [address] [place] [address] Performed By: #### 5 8410-2 ####[facility] LABCLIA [id number] [place] [address] [place] Hemoglobin (Bld) [Mass/Vol] 10.2 g/dL Low 13.0-17.0 [facility] Comment on above: Order Comment: Speci men Type: BLOOD SPECIMENOrdering Facility: [facility] Address: [address] [place] [address] Performed By: #### 5 8410-2 ####[facility] LABCLIA [id number] [place] [address] [place] MCH (RBC) [Entitic mass] 26.2 pg Normal 26.0-34.0 [facility] Comment on above: Order Comment: Speci men Type: BLOOD SPECIMENOrdering Facility: [facility] Address: [address] [place] [address] Performed By: #### 5 8410-2 ####[facility] [id number] [place] [address] [place] MCHC (RBC) [Mass/Vol] 29.3 g/dL Low 30.5-36.0 [facility] Comment on above: Order Comment: Speci men Type: BLOOD SPECIMENOrdering Facility: [facility] Address: [address] [place] [address] Performed By: #### 5 8410-2 ####[facility] [id number] [place] [address] [place] MCV (RBC) [Entitic vol] 89.2 fL Normal 80.0-100.0 [facility] Comment on above: Order Comment: Speci men Type: BLOOD SPECIMENOrdering Facility: [facility] Address: [address] [place] [address] Performed By: #### 5 8410-2 ####[facility]CL[facility] [id number] [place] [address] [place] Nucleated RBC (Bld) [#/Vol] 0.03 10*3/uL High <0.01 [facility] Comment on above: Order Comment: Speci men Type: BLOOD SPECIMENOrdering Facility: [facility] Address: [address] [place] [address] Performed By: #### 5 8410-2 ####[facility] [id number] [place] [address] [place] Platelet mean volume (Bld) [Entitic vol] 10.1 fL Normal 9.0-12.7 [facility] Comment on above: Order Comment: Speci men Type: BLOOD SPECIMENOrdering Facility: [facility] Address: [address] [place] [address] Performed By: #### 5 8410-2 ####[facility] [id number] [place] [address] [place] Platelets (Bld) [#/Vol] 220 10*3/uL Normal 150-400 [facility] Comment on above: Order Comment: Speci men Type: BLOOD SPECIMENOrdering Facility: [facility] Address: [address] [place] [address] Performed By: #### 5 8410-2 ####[facility] [id number] [place] [address] [place] RBC (Bld) [#/Vol] 3.90 10*6/uL Low 4.20-6.00 [facility] [place] Comment on above: Order Comment: Speci men Type: BLOOD SPECIMENOrdering Facility: [facility] Address: [address] [place] [address] Performed By: #### 5 8410-2 ####[facility] [id number] [place] [address] [place] WBC (Bld) [#/Vol] 4.88 10*3/uL Normal 3.70-11.00 [facility] [place] Comment on above: Order Comment: Speci men Type: BLOOD SPECIMENOrdering Facility: [facility] Address: [address] [place], [place] [address] Performed By: #### 5 8410-2 ####[facility] LABCL[facility] [id number] [place] [address] [place] CONSULTon 09-23-2024 CONSULT Normal [facility] CONSULT PROGon 09-23-2024 CONSULT PROG Normal [facility] ECHO LIMITEDon 09-23-2024 ECHO LIMITED Normal [facility] POTASSIUMon 09-23-2024 Potassium [Moles/Vol] 3.8 mmol/L Normal 3.7-5.1 [facility] Comment on above: Order Comment: Speci men Type: BLOOD SPECIMENOrdering Facility: [facility] Address: [address] [place] [address] [place] [address] Performed By: #### K 1 ####[facility]CL[facility] [id number] [place] [address] [place] Potassium [Moles/Vol] 3.5 mmol/L Low 3.7-5.1 [facility] Comment on above: Order Comment: Speci men Type: BLOOD SPECIMENOrdering Facility: [facility] Address: [address] [place] [address] [place] [address] Performed By: #### K 1 ####[facility]CL[facility] [id number] [place] [address] [place] Performed By: #### 2 4321-2 ####[facility]CL[facility] [id number] [address] [place] THERAPY NTon 09-23-2024 THERAPY NT Normal [facility] THERAPY NT Normal [facility] ALLIED HEALTHon 09-22-2024 ALLIED HEALTH HNO ID: [id number] Author: FERMIN MIGUEL Chaplain Service: Spiritual Care Author Type: Type: Allied Health Filed: 09/22/2024 11:24 Note Text: Accepted anoint.,bless Normal [facility] APIXABAN ASSAYon 09-22-2024 APIXABAN 166.00 ng/mL Normal [facility] Comment on above: Order Comment: Specgregory olvera Type: BLOOD SPECIMENOrdering Facility: [facility] Address: [address] [place] [address] Result Comment: APIX ABAN PEAK AND TROUGH PLASMA CONCENTRATION RANGESIndication: Prevention of venous thromboembolism (VTE)Dose: 2.5 mg twice daily (BID)Peak: 41 to 146 ng/mLTrough: 23 to 109 ng/mLIndication: Prevention of Stroke and Systemic Embolism in non-valvular atrial fibrillationDose: 2.5 mg BIDPeak: 69 to 221 ng/mLTrough: 34 to 162 ng/mLDose: 5 mg BIDPeak: 91 to 321 ng/mLTrough: 41 to 230 ng/mLIndication: Treatment of VTE and Prevention of Recurrent VTEDose: 2.5 mg BIDPeak: 30 to 153 ng/mLTrough: 11 to 90 ng/mLDose: 5 mg BIDPeak: 59 to 302 ng/mLTrough: 22 to 177 ng/mLDose: 10 mg BIDPeak: 111 to 572 ng/mLTrough: 41 to 335 ng/mLReference: Arlette. CPT Pharmacocetrics Syst Pharmacol. 2017;6(5):340-349. Performed By: #### A PIXBN ####[facility]CL[facility] [id number] [place] [address] [place] BIOTIN (VITAMIN B7)on 2024 VITAMIN B7, SERUM OR PLASMA 0.32 ng/mL Normal 0.05-0.83 [facility] Comment on above: Order Comment: Specgregory olvera Type: BLOOD SPECIMENOrdering Facility: [facility] Address: [address] [place] [address] Result Comment: This test was developed and its performance characteristicsdetermined by [employer] It has not been cleared or approvedby the Food and Drug Administration.Performed by: [address] [phone], Sanjai MD Performed By: #### V ITB7 ####[facility] [id number] [place] [address] Basic metabolic 2000 panelon 09-22-2024 Anion gap [Moles/Vol] 19 mmol/L High 8-15 [facility] Comment on above: Order Comment: Speci men Type: BLOOD SPECIMENOrdering Facility: [facility] Address: [address] [place] [address] Performed By: #### 2 4321-2 ####[facility] LABCL[facility] [id number] [place] [address] [place] Calcium [Mass/Vol] 9.2 mg/dL Normal 8.5-10.2 [facility] Comment on above: Order Comment: Speci men Type: BLOOD SPECIMENOrdering Facility: [facility] Address: [address] [place] [address] Performed By: #### 2 4321-2 ####[facility]CL[facility] [id number] [place] [address] [place] Chloride [Moles/Vol] 96 mmol/L Low 98-107 [facility] Comment on above: Order Comment: Speci men Type: BLOOD SPECIMENOrdering Facility: [facility] Address: [address] [place] [address] Performed By: #### 2 4321-2 ####[facility]CL[facility] [id number] [place] [address] [place] CO2 [Moles/Vol] 20 mmol/L Low 22-30 [facility] Comment on above: Order Comment: Speci men Type: BLOOD SPECIMENOrdering Facility: [facility] Address: [address] [place] [address] Performed By: #### 2 4321-2 ####[facility]CL[facility] [id number] [place] [address] [place] Creatinine [Mass/Vol] 3.87 mg/dL High 0.73-1.22 [facility] Comment on above: Order Comment: Speci men Type: BLOOD SPECIMENOrdering Facility: [facility] Address: [address] [place] [address] Performed By: #### 2 4321-2 ####[facility] [id number] [place] [address] [place] Creatinine and Glomerular filtration rate.predicted panel (S/P/Bld) 15 mL/min/1.73m??? Low >=60 [facility] Comment on above: Order Comment: Dylan olvera Type: BLOOD SPECIMENOrdering Facility: [facility] Address: [address] [place] [address] Result Comment: Etta mated Glomerular Filtration Rate [...] actual GFR. Performed By: #### 2 4321-2 ####[facility]CL[facility] [id number] [place] [address] [place] Glucose [Mass/Vol] 71 mg/dL Low 74-99 [facility] Comment on above: Order Comment: Dylan olvera Type: BLOOD SPECIMENOrdering Facility: [facility] Address: [address] [place] [address] Result Comment: The [place] [employer] (ADA) provides guidance for cutoff [...] Standards of Medical Care in Diabetes 2016, [place] [employer]. Diabetes Care. 2016.39(Suppl 1). Performed By: #### 2 4321-2 ####[facility]CL[facility] [id number] [place] [address] [place] Potassium [Moles/Vol] 4.4 mmol/L Normal 3.7-5.1 [facility] Comment on above: Order Comment: Speci men Type: BLOOD SPECIMENOrdering Facility: [facility] Address: [address] [place] [address] Performed By: #### 2 4321-2 ####[facility]CL[facility] [id number] [place] [address] [place] Sodium [Moles/Vol] 135 mmol/L Low 136-144 [facility] Comment on above: Order Comment: Speci men Type: BLOOD SPECIMENOrdering Facility: [facility] Address: [address] [place] [address] Performed By: #### 2 4321-2 ####[facility] [id number] [place] [address] [place] Urea nitrogen [Mass/Vol] 67 mg/dL High 9-24 [facility] Comment on above: Order Comment: Speci men Type: BLOOD SPECIMENOrdering Facility: [facility] Address: [address] [place] [address] Performed By: #### 2 4321-2 ####[facility] [id number] [place] [id number] [place] CASE MANAGEMon 09-22-2024 CASE MANAGEM Normal [facility] CBC panel Auto (Bld)on 09-22 Erythrocyte distribution width (RBC) [Ratio] 20.2 % High 11.5-15.0 [facility] Comment on above: Order Comment: Speci men Type: BLOOD SPECIMENOrdering Facility: [facility] Address: [address] [place] [address] Performed By: #### 5 8410-2 ####[facility]CL[facility] [id number] [place] [address] [place] Hematocrit (Bld) [Volume fraction] 34.8 % Low 39.0-51.0 [facility] Comment on above: Order Comment: Speci men Type: BLOOD SPECIMENOrdering Facility: [facility] Address: [address] [place] [address] Performed By: #### 5 8410-2 ####[facility]CL[facility] [id number] [place] [address] [place] Hemoglobin (Bld) [Mass/Vol] 10.7 g/dL Low 13.0-17.0 [facility] Comment on above: Order Comment: Speci men Type: BLOOD SPECIMENOrdering Facility: [facility] Address: [address] [place] [address] Performed By: #### 5 8410-2 ####[facility]CL[facility] [id number] [place] [address] [place] MCH (RBC) [Entitic mass] 27.4 pg Normal 26.0-34.0 [facility] Comment on above: Order Comment: Speci men Type: BLOOD SPECIMENOrdering Facility: [facility] Address: [address] [place] [address] Performed By: #### 5 8410-2 ####[facility] [id number] [place] [address] [place] MCHC (RBC) [Mass/Vol] 30.7 g/dL Normal 30.5-36.0 [facility] Comment on above: Order Comment: Speci men Type: BLOOD SPECIMENOrdering Facility: [facility] Address: [address] [place] [address] Performed By: #### 5 8410-2 ####[facility] [id number] [place] [address] [place] MCV (RBC) [Entitic vol] 89.2 fL Normal 80.0-100.0 [facility] Comment on above: Order Comment: Speci men Type: BLOOD SPECIMENOrdering Facility: [facility] Address: [address] [place] [address] Performed By: #### 5 8410-2 ####[facility] [id number] [place] [address] [place] Nucleated RBC (Bld) [#/Vol] 10*3/uL Normal <0.01 [facility] Comment on above: Order Comment: Speci men Type: BLOOD SPECIMENOrdering Facility: [facility] Address: [address] [place] [address] Performed By: #### 5 8410-2 ####[facility] [id number] [place] [address] [place] Platelet mean volume (Bld) [Entitic vol] 10.0 fL Normal 9.0-12.7 [facility] Comment on above: Order Comment: Speci men Type: BLOOD SPECIMENOrdering Facility: [facility] Address: [address] [place] [address] Performed By: #### 5 8410-2 ####[facility] [id number] [place] [address] [place] Platelets (Bld) [#/Vol] 214 10*3/uL Normal 150-400 [facility] Comment on above: Order Comment: Speci men Type: BLOOD SPECIMENOrdering Facility: [facility] Address: [address] [place] [address] Performed By: #### 5 8410-2 ####[facility] [id number] [place] [address] [place] RBC (Bld) [#/Vol] 3.90 10*6/uL Low 4.20-6.00 [facility] Comment on above: Order Comment: Speci men Type: BLOOD SPECIMENOrdering Facility: [facility] Address: [address] [place] [address] Performed By: #### 5 8410-2 ####[facility] [id number] [place] [address] [place] WBC (Bld) [#/Vol] 5.21 10*3/uL Normal 3.70-11.00 [facility] Comment on above: Order Comment: Speci men Type: BLOOD SPECIMENOrdering Facility: [facility] Address: [address] [place] [address] Performed By: #### 5 8410-2 ####[facility] [id number] [place] [address] [place] CONSULTon 09-22-2024 CONSULT Normal [facility] CONSULT Normal [facility] Creatinine Unsp time (U) [Ma ss/Vol]on 09-22-2024 Creatinine (U) [Mass/Vol] 27.0 mg/dL Normal 20.0-300.0 [facility] Comment on above: Order Comment: Speci men Type: URINE SPECIMENOrdering Facility: [facility] Address: [address] [place] [address] Performed By: #### 3 5678-2, UUNR, 61923-0 ####[facility] [id number] [place] [address] [place] NM PET/CT CARD PERF REST/STR ESSon 09-22-2024 NM PET/CT CARD PERF REST/STRESS Normal [facility] NM PET/CT CARDIAC VIABILITYo n 09-22-2024 NM PET/CT CARDIAC VIABILITY Normal [facility] NURSING PROGon 09-22-2024 NURSING PROG Normal [facility] PTT, ANTICOAGULANT THERAPYon 09-22-2024 aPTT Coag (PPP) [Time] 42.8 s High 23.0-32.4 [facility] Comment on above: Order Comment: Speci men Type: BLOOD SPECIMENOrdering Facility: [facility] Address: [address] [place] [address] Performed By: #### P TTAC ####[facility] [id number] [place] [id number] [place] Sodium ?Tm Ur-sCncon 025 Sodium Unsp time (U) [Moles/Vol] 92 mmol/L Normal 14-216 [facility] Comment on above: Order Comment: Speci men Type: URINE SPECIMENOrdering Facility: [facility] Address: [address] [place] [address] Performed By: #### 3 5678-2, GERARDO, 94899-3 ####[facility] [id number] [place] [address] [place] THERAPY NTon 09-22-2024 THERAPY NT Normal [facility] THERAPY NT Normal [facility] THERAPY NT Normal [facility] UREA NITROGEN, RANDOM URINEo n 09-22-2024 UREA NITROGEN,UR,RAN 224 mg/dL Normal 140-1500 [facility] Comment on above: Order Comment: Speci men Type: URINE SPECIMENOrdering Facility: [facility] Address: [address] [place] [address] Performed By: #### 3 5678-2, UMARY, 55702-0 ####[facility] [id number] [place] [address] [place] Basic metabolic 2000 panelon 09-21-2024 Anion gap [Moles/Vol] 17 mmol/L High 8-15 [facility] Comment on above: Order Comment: Speci men Type: BLOOD SPECIMENOrdering Facility: [facility] Address: [address] [place] [address] Performed By: #### 2 4321-2, 03614-6, 18126-1, 2276-4 ####[facility] [id number] [place] [address] [place] Calcium [Mass/Vol] 8.9 mg/dL Normal 8.5-10.2 [facility] Comment on above: Order Comment: Speci men Type: BLOOD SPECIMENOrdering Facility: [facility] Address: [address] [place] [address] Performed By: #### 2 4321-2, 54519-1, 63150-2, 6-4 ####[facility] [id number] [place] [address] [place] Chloride [Moles/Vol] 96 mmol/L Low 98-107 [facility] Comment on above: Order Comment: Speci men Type: BLOOD SPECIMENOrdering Facility: [facility] Address: [address] [place] [address] Performed By: #### 2 4321-2, 41114-8, 94244-5, 6-4 ####[facility] [id number] [place] [address] [place] CO2 [Moles/Vol] 22 mmol/L Normal 22-30 [facility] Comment on above: Order Comment: Speci men Type: BLOOD SPECIMENOrdering Facility: [facility] Address: [address] [place] [address] Performed By: #### 2 4321-2, 05455-4, 37418-1, 6-4 ####[facility] [id number] [place] [address] [place] Creatinine [Mass/Vol] 3.53 mg/dL High 0.73-1.22 [facility] Comment on above: Order Comment: Speci men Type: BLOOD SPECIMENOrdering Facility: [facility] Address: [address] [place] [address] Performed By: #### 2 4321-2, 54407-6, 95670-8, 6-4 ####[facility] [id number] [place] [address] [place] Creatinine and Glomerular filtration rate.predicted panel (S/P/Bld) 17 mL/min/1.73m??? Low >=60 [facility] Comment on above: Order Comment: Speci men Type: BLOOD SPECIMENOrdering Facility: [facility] Address: [address] [place] [address] Result Comment: Etta mated Glomerular Filtration Rate [...] actual GFR. Performed By: #### 2 4321-2, 26559-4, 70940-9, 6-4 ####[facility] [id number] [place] [address] [place] Glucose [Mass/Vol] 95 mg/dL Normal 74-99 [facility] Comment on above: Order Comment: Dylan olvera Type: BLOOD SPECIMENOrdering Facility: [facility] Address: [address] [place] [address] Result Comment: The [place] [employer] (ADA) provides guidance for cutoff [...] Standards of Medical Care in Diabetes 2016, [place] [employer]. Diabetes Care. 2016.39(Suppl 1). Performed By: #### 2 4321-2, 05499-9, 32738-3, 6-4 ####[facility] [id number] [place] [id number] [place] Potassium [Moles/Vol] 4.8 mmol/L Normal 3.7-5.1 [facility] Comment on above: Order Comment: Dylan olvera Type: BLOOD SPECIMENOrdering Facility: [facility] Address: [address] [place], [place] [address] Performed By: #### 2 4321-2, 68983-8, 43577-9, 6-4 ####[facility] [id number] [place] [id number] [place] Sodium [Moles/Vol] 135 mmol/L Low 136-144 [facility] Comment on above: Order Comment: Speci men Type: BLOOD SPECIMENOrdering Facility: [facility] Address: [address] [place] [address] Performed By: #### 2 4321-2, 69964-7, 09721-7, 6-4 ####[facility] [id number] [place] [address] [place] Urea nitrogen [Mass/Vol] 58 mg/dL High 9-24 [facility] Comment on above: Order Comment: Speci men Type: BLOOD SPECIMENOrdering Facility: [facility] Address: [address] [place] [address] Performed By: #### 2 4321-2, 75744-3, 34234-4, 6-4 ####[facility] [id number] [place] [address] [place] CASE MANAGEMon 09-21-2024 CASE MANAGEM Normal [facility] CBC panel Auto (Bld)on 09-21 Erythrocyte distribution width (RBC) [Ratio] 20.1 % High 11.5-15.0 [facility] Comment on above: Order Comment: Speci men Type: BLOOD SPECIMENOrdering Facility: [facility] Address: [address] [place] [address] Performed By: #### 5 8410-2 ####[facility] [id number] [place] [id number] [place] Hematocrit (Bld) [Volume fraction] 35.5 % Low 39.0-51.0 [facility] Comment on above: Order Comment: Speci men Type: BLOOD SPECIMENOrdering Facility: [facility] Address: [address] [place] [address] Performed By: #### 5 8410-2 ####[facility] [id number] [place] [address] [place] Hemoglobin (Bld) [Mass/Vol] 10.4 g/dL Low 13.0-17.0 [facility] Comment on above: Order Comment: Speci men Type: BLOOD SPECIMENOrdering Facility: [facility] Address: [address] [place] [address] Performed By: #### 5 8410-2 ####[facility] [id number] [place] [address] [place] MCH (RBC) [Entitic mass] 26.5 pg Normal 26.0-34.0 [facility] Comment on above: Order Comment: Speci men Type: BLOOD SPECIMENOrdering Facility: [facility] Address: [address] [place] [address] Performed By: #### 5 8410-2 ####[facility] [id number] [place] [address] [place] MCHC (RBC) [Mass/Vol] 29.3 g/dL Low 30.5-36.0 [facility] Comment on above: Order Comment: Speci men Type: BLOOD SPECIMENOrdering Facility: [facility] Address: [address] [place] [address] Performed By: #### 5 8410-2 ####[facility] [facility] [id number] [place] [address] [place] MCV (RBC) [Entitic vol] 90.3 fL Normal 80.0-100.0 [facility] Comment on above: Order Comment: Speci men Type: BLOOD SPECIMENOrdering Facility: [facility] Address: [address] [place] [address] Performed By: #### 5 8410-2 ####[facility] LABCLIA [id number] [place] [address] [place] Nucleated RBC (Bld) [#/Vol] 10*3/uL Normal <0.01 [facility] Comment on above: Order Comment: Speci men Type: BLOOD SPECIMENOrdering Facility: [facility] Address: [address] [place] [address] Performed By: #### 5 8410-2 ####[facility] [id number] [place] [address] [place] Platelet mean volume (Bld) [Entitic vol] 10.7 fL Normal 9.0-12.7 [facility] Comment on above: Order Comment: Speci men Type: BLOOD SPECIMENOrdering Facility: [facility] Address: [address] [place] [address] Performed By: #### 5 8410-2 ####[facility] [id number] [place] [address] [place] Platelets (Bld) [#/Vol] 227 10*3/uL Normal 150-400 [facility] Comment on above: Order Comment: Speci men Type: BLOOD SPECIMENOrdering Facility: [facility] Address: [address] [place] [address] Performed By: #### 5 8410-2 ####[facility] [id number] [place] [address] [place] RBC (Bld) [#/Vol] 3.93 10*6/uL Low 4.20-6.00 [facility] [place] Comment on above: Order Comment: Speci men Type: BLOOD SPECIMENOrdering Facility: [facility] Address: [address] [place] [address] Performed By: #### 5 8410-2 ####[facility] [id number] [place] [address] [place] WBC (Bld) [#/Vol] 5.87 10*3/uL Normal 3.70-11.00 [facility] [place] Comment on above: Order Comment: Speci men Type: BLOOD SPECIMENOrdering Facility: [facility] Address: [address] [place] [address] Performed By: #### 5 8410-2 ####[facility] LABCLIA [id number] [place] [address] [place] Ferritin SerPl-mCncon 2024 Ferritin [Mass/Vol] 162.0 ng/mL Normal 30.3-565.7 [facility] Comment on above: Order Comment: Speci men Type: BLOOD SPECIMENOrdering Facility: [facility] Address: [address] [place] [address] Performed By: #### 2 4321-2, 53355-4, 55462-0, 6-4 ####[facility] LABCLIA [id number] [place] [address] [place] Iron and Iron binding capaci ty panelon 09-21-2024 Iron [Mass/Vol] 26 ug/dL Low 41-186 [facility] Comment on above: Order Comment: Speci men Type: BLOOD SPECIMENOrdering Facility: [facility] Address: [address] [place] [address] Performed By: #### 2 4321-2, 10516-7, 75908-2, 6-4 ####[facility] LABCLIA [id number] [place] [id number] [place] Iron binding capacity [Mass/Vol] 359 ug/dL Normal 232-386 [facility] Comment on above: Order Comment: Speci men Type: BLOOD SPECIMENOrdering Facility: [facility] Address: [address] [place] [address] Performed By: #### 2 4321-2, 56916-7, 32326-7, 6-4 ####[facility] LABCL[facility] [id number] [place] [id number] [place] Iron/TIBC [Molar ratio] 7.2 % Low 15.0-57.0 [facility] Comment on above: Order Comment: Speci men Type: BLOOD SPECIMENOrdering Facility: [facility] Address: [address] [place], [place] [address] Performed By: #### 2 4321-2, 21278-4, 46878-6, 2276-4 ####[facility] LABCLIA [id number] [place] [id number] [place] Magnesium SerPl-mCncon 09-21 Magnesium [Mass/Vol] 2.6 mg/dL High 1.7-2.3 [facility] Comment on above: Order Comment: Speci men Type: BLOOD SPECIMENOrdering Facility: [facility] Address: [address] [place] [address] Performed By: #### 2 4321-2, 03158-6, 60709-2, 6-4 ####[facility] LABCL[facility] [id number] [place] [id number] [place] O2 SATURATION (POC)on 2024 %HbO2 (Oxyhemoglobin)(POC T) 60.1 % [facility] Additional Comments (POCT) Venous 60%-85%; Arterial 95%-98% [facility] Comment (POCT) No anatomical site g iven %HBO2 ref range [facility] Hemoglobin (Bld) [Mass/Vol] 9.8 g/dL Abnormal 13.0 - 17.0 g/dL [facility] Interpretation and review of laboratory results Abnormal [facility] Location:String Studies Director [facility], [address] [place] [address], [address] [place] [address] POINT OF CARE [facility] PT EDon 09-21-2024 PT ED Normal [facility] PT panel Coag (PPP)on 2024 INR Coag (PPP) [Relative time] 1.7 {INR} High 0.9-1.3 [facility] Comment on above: Order Comment: Speci men Type: BLOOD SPECIMENOrdering Facility: [facility] Address: [address] [place] [address] Result Comment: Loulou min K Antagonist (VKA) Therapeutic Range: INR 2 to 3 (Target INR of 2.5)Note: For patients treated with VKA drugs, such as warfarin, the [place] [employer] 2012 Guideline recommends [...] of 3).Olamide GH, et al. Chest 2012, 141:7S-47SNishsierra RA, et al. [facility] 2017, 70: 252-289 Performed By: #### P TTA, 07233-3 ####[facility] [id number] [place] [address] [place] PT Coag (PPP) [Time] 17.9 s High 9.7-13.0 [facility] Comment on above: Order Comment: Dylan olvera Type: BLOOD SPECIMENOrdering Facility: [facility] Address: [address] [place] [address] Performed By: #### P TTAC, 12478-2 ####[facility] [id number] [place] [address] [place] PTT, ANTICOAGULANT THERAPYon 09-21-2024 aPTT Coag (PPP) [Time] 131.2 s High 23.0-32.4 [facility] Comment on above: Order Comment: Dylan olvera Type: BLOOD SPECIMENOrdering Facility: [facility] Address: [address] [place] [address] Result Comment: Samnikhil call checked for clot.Result rechecked. Performed By: #### P TTAC ####[facility] LABCLIA [id number] [place] [address] [place] aPTT Coag (PPP) [Time] 107.7 s High 23.0-32.4 [facility] Comment on above: Order Comment: Speci men Type: BLOOD SPECIMENOrdering Facility: [facility] Address: [address] [place] [address] Result Comment: Samp le checked for clot.Result rechecked. Performed By: #### P TTAC, 99482-0 ####[facility] LABCL[facility] [id number] [place] [address] [facility] [place] THERAPY NTon 09-21-2024 THERAPY NT Normal [facility] TYPE + SCREENon 09-21-2024 ABO O Normal [facility] Comment on above: Order Comment: Speci men Type: BLOOD SPECIMENOrdering Facility: [facility] Address: [address] [place] [address] Performed By: #### T SCR ####[facility] BANKCLIA [id number] [place] [address] [place] Rh Nom (Bld) Positive Normal [facility] Comment on above: Order Comment: Speci men Type: BLOOD SPECIMENOrdering Facility: [facility] Address: [address] [place] [address] Performed By: #### T SCR ####[facility] BANKCLIA [id number] [place] [address] [place] TYPE AND SCREEN EXPIRATION 09/24/2024 23:59 Normal [facility] Comment on above: Order Comment: Speci men Type: BLOOD SPECIMENOrdering Facility: [facility] Address: [address] [place] [address] Performed By: #### T SCR ####[facility]LO[facility] BANKCLIA [id number] [place] [address] [place] US KIDNEY/BLADDERon 01-06-20 25 US KIDNEY/BLADDER Normal [facility] Urinalysis complete panel (U )on 09-21-2024 Bacteria LM.HPF (Urine sed) [#/Area] Negative Normal Negative [facility] Comment on above: Order Comment: Speci men Type: URINE SPECIMENOrdering Facility: [facility] Address: [address] [place] [address] Performed By: #### 2 4356-8 ####[facility] LABCLIA [id number] [place] [address] [place] Bilirubin Ql (U) Negative Normal Negative [facility] Comment on above: Order Comment: Speci men Type: URINE SPECIMENOrdering Facility: [facility] Address: [address] [place] [address] Performed By: #### 2 4356-8 ####[facility] LABCLIA [id number] [place] [address] [place] Clarity (Unsp spec) Clear Normal Clear [facility] [place] Comment on above: Order Comment: Speci men Type: URINE SPECIMENOrdering Facility: [facility] Address: [address] [place] [address] Performed By: #### 2 4356-8 ####[facility]CL[facility] [id number] [place] [address] [place] Color (U) Yellow Normal Yellow [facility] Comment on above: Order Comment: Speci men Type: URINE SPECIMENOrdering Facility: [facility] Address: [address] [place] [address] Performed By: #### 2 4356-8 ####[facility] LABCL[facility] [id number] [place] [address] [place] Epithelial cells LM.HPF (Urine sed) [#/Area] None Seen Normal [facility] Comment on above: Order Comment: Speci men Type: URINE SPECIMENOrdering Facility: [facility] Address: [address] [place] [address] Performed By: #### 2 4356-8 ####[facility] LABCL[facility] [id number] [place] [address] [place] Glucose Test strip (U) [Mass/Vol] Negative Normal Negative [facility] Comment on above: Order Comment: Speci men Type: URINE SPECIMENOrdering Facility: [facility] Address: [address] [place] [address] Performed By: #### 2 4356-8 ####[facility]CL[facility] [id number] [place] [address] [place] Hemoglobin Ql (U) 2+ Abnormal Negative [facility] Comment on above: Order Comment: Speci men Type: URINE SPECIMENOrdering Facility: [facility] Address: [address] [place] [address] Performed By: #### 2 4356-8 ####[facility] LABCL[facility] [id number] [place] [address] [place] Hyaline casts (Urine sed) [#/Area] 4-10 /LPF Abnormal 0 /LPF [facility] Comment on above: Order Comment: Speci men Type: URINE SPECIMENOrdering Facility: [facility] Address: [address] [place] [address] Performed By: #### 2 4356-8 ####[facility]CLIA [id number] [place] [address] [place] Ketones Ql (U) Negative Normal Negative [facility] Comment on above: Order Comment: Speci men Type: URINE SPECIMENOrdering Facility: [facility] Address: [address] [place] [address] Performed By: #### 2 4356-8 ####[facility]CL[facility] [id number] [place] [address] [place] Leukocyte esterase Test strip Ql (U) Negative Normal Negative [facility] Comment on above: Order Comment: Speci men Type: URINE SPECIMENOrdering Facility: [facility] Address: [address] [place] [address] Performed By: #### 2 4356-8 ####[facility]CL[facility] [id number] [place] [address] [place] Nitrite Ql (U) Negative Normal Negative [facility] Comment on above: Order Comment: Speci men Type: URINE SPECIMENOrdering Facility: [facility] Address: [address] [place] [address] Performed By: #### 2 4356-8 ####[facility]CL[facility] [id number] [place] [address] [place] pH (U) 6.5 [pH] Normal <8.5 [facility] Comment on above: Order Comment: Speci men Type: URINE SPECIMENOrdering Facility: [facility] Address: [address] [place] [address] Performed By: #### 2 4356-8 ####[facility]CL[facility] [id number] [place] [address] [place] Protein (U) [Mass/Vol] Trace Abnormal Negative [facility] Comment on above: Order Comment: Speci men Type: URINE SPECIMENOrdering Facility: [facility] Address: [address] [place] [address] Performed By: #### 2 4356-8 ####[facility] [id number] [place] [address] [place] RBC LM.HPF (Urine sed) [#/Area] 6-10 /HPF Abnormal 0-2 /HPF [facility] Comment on above: Order Comment: Speci men Type: URINE SPECIMENOrdering Facility: [facility] Address: [address] [place] [address] Performed By: #### 2 4356-8 ####[facility] LABCL[facility] [id number] [place] [address] [place] Specific gravity (U) [Rel density] 1.010 Normal 1.005-1.030 [facility] Comment on above: Order Comment: Speci men Type: URINE SPECIMENOrdering Facility: [facility] Address: [address] [place] [address] Performed By: #### 2 4356-8 ####[facility]CL[facility] [id number] [place] [address] [place] Urobilinogen Ql (U) 0.2 EU/dL Normal 0.2-1.0 EU/dL [facility] Comment on above: Order Comment: Speci men Type: URINE SPECIMENOrdering Facility: [facility] Address: [address] [place] [address] Performed By: #### 2 4356-8 ####[facility]CL[facility] [id number] [place] [address] [place] WBC LM.HPF (Urine sed) [#/Area] 0-5 /HPF Normal 0-5 /HPF [facility] Comment on above: Order Comment: Speci men Type: URINE SPECIMENOrdering Facility: [facility] Address: [address] [place] [address] Performed By: #### 2 4356-8 ####[facility] [id number] [place] [address] [place] APIXABAN ASSAYon 09-20-2024 APIXABAN 442 ng/mL Normal [facility] Comment on above: Order Comment: Speci men Type: BLOOD SPECIMENOrdering Facility: [facility] Address: [address] [place] [address] Result Comment: APIX ABAN PEAK AND TROUGH PLASMA CONCENTRATION RANGESIndication: Prevention of venous thromboembolism (VTE)Dose: 2.5 mg twice daily (BID)Peak: 41 to 146 ng/mLTrough: 23 to 109 ng/mLIndication: Prevention of Stroke and Systemic Embolism in non-valvular atrial fibrillationDose: 2.5 mg BIDPeak: 69 to 221 ng/mLTrough: 34 to 162 ng/mLDose: 5 mg BIDPeak: 91 to 321 ng/mLTrough: 41 to 230 ng/mLIndication: Treatment of VTE and Prevention of Recurrent VTEDose: 2.5 mg BIDPeak: 30 to 153 ng/mLTrough: 11 to 90 ng/mLDose: 5 mg BIDPeak: 59 to 302 ng/mLTrough: 22 to 177 ng/mLDose: 10 mg BIDPeak: 111 to 572 ng/mLTrough: 41 to 335 ng/mLReference: Desire [facility] Pharmacocetrics Syst Pharmacol. 2017;6(5):340-349. Performed By: #### A PIXBN ####[facility] [id number] [place] [address] [place] Basic metabolic 2000 panelon 09-20-2024 Anion gap [Moles/Vol] 15 mmol/L Normal 8-15 [facility] Comment on above: Order Comment: Speci men Type: BLOOD SPECIMENOrdering Facility: [facility] Address: [address] [place] [address] Performed By: #### 3 3762-6, 69043-2, 10739-0 ####[facility] [id number] [place] [address] [place] Calcium [Mass/Vol] 9.0 mg/dL Normal 8.5-10.2 [facility] Comment on above: Order Comment: Speci men Type: BLOOD SPECIMENOrdering Facility: [facility] Address: [address] [place] [address] Performed By: #### 3 3762-6, 96246-3, 58470-2 ####[facility] [id number] [place] [id number] [place] Chloride [Moles/Vol] 97 mmol/L Low 98-107 [facility] Comment on above: Order Comment: Speci men Type: BLOOD SPECIMENOrdering Facility: [facility] Address: [address] [place] [address] Performed By: #### 3 3762-6, , ####[facility] LABCLIA [id number] [place] [id number] [place] CO2 [Moles/Vol] 23 mmol/L Normal 22-30 [facility] Comment on above: Order Comment: Speci men Type: BLOOD SPECIMENOrdering Facility: [facility] Address: [address] [place] [address] Performed By: #### 3 3762-6, , ####[facility] LABCLIA [id number] [place] [address] [place] Creatinine [Mass/Vol] 2.79 mg/dL High 0.73-1.22 [facility] Comment on above: Order Comment: Speci men Type: BLOOD SPECIMENOrdering Facility: [facility] Address: [address] [place] [address] Performed By: #### 3 3762-6, , ####[facility]IA [id number] [place] [address] [place] Creatinine and Glomerular filtration rate.predicted panel (S/P/Bld) 22 mL/min/1.73m??? Low >=60 [facility] Comment on above: Order Comment: Speci men Type: BLOOD SPECIMENOrdering Facility: [facility] Address: [address] [place] [address] Result Comment: Etta mated Glomerular Filtration Rate [...] actual GFR. Performed By: #### 3 3762-6, , 89159-4 ####[facility] LABCLIA [id number] [place] [address] [place] Glucose [Mass/Vol] 116 mg/dL High 74-99 [facility] Comment on above: Order Comment: Speci men Type: BLOOD SPECIMENOrdering Facility: [facility] Address: [address] [place] [address] Result Comment: The [place] [employer] (ADA) provides guidance for cutoff [...] Standards of Medical Care in Diabetes 2016, [place] [employer]. Diabetes Care. 2016.39(Suppl 1). Performed By: #### 3 3762-6, , 78011-5 ####[facility] LABCLIA [id number] [place] [address] [place] Potassium [Moles/Vol] 4.3 mmol/L Normal 3.7-5.1 [facility] Comment on above: Order Comment: Speci men Type: BLOOD SPECIMENOrdering Facility: [facility] Address: [address] [place] [address] Performed By: #### 3 3762-6, , 16232-2 ####[facility] LABCLIA [id number] [place] [id number] [place] Sodium [Moles/Vol] 135 mmol/L Low 136-144 [facility] Comment on above: Order Comment: Speci men Type: BLOOD SPECIMENOrdering Facility: [facility] Address: [address] [place] [address] Performed By: #### 3 3762-6, , 13855-1 ####[facility] LABCLIA [id number] [place] [address] [place] Urea nitrogen [Mass/Vol] 46 mg/dL High 9-24 [facility] Comment on above: Order Comment: Speci men Type: BLOOD SPECIMENOrdering Facility: [facility] Address: [address] [place] [address] Performed By: #### 3 3762-6, 84455-3, 12724-5 ####[facility] LABCLIA [id number] [place] [address] [place] CBC panel Auto (Bld)on 09-20 Erythrocyte distribution width (RBC) [Ratio] 20.1 % High 11.5-15.0 [facility] Comment on above: Order Comment: Speci men Type: BLOOD SPECIMENOrdering Facility: [facility] Address: [address] [place] [address] Performed By: #### 5 8410-2 ####[facility] LABIA [id number] [place] [address] [place] Hematocrit (Bld) [Volume fraction] 33.9 % Low 39.0-51.0 [facility] Comment on above: Order Comment: Speci men Type: BLOOD SPECIMENOrdering Facility: [facility] Address: [address] [place] [address] Performed By: #### 5 8410-2 ####[facility] LABIA [id number] [place] [address] [place] Hemoglobin (Bld) [Mass/Vol] 10.4 g/dL Low 13.0-17.0 [facility] Comment on above: Order Comment: Speci men Type: BLOOD SPECIMENOrdering Facility: [facility] Address: [address] [place] [address] Performed By: #### 5 8410-2 ####[facility]IA [id number] [place] [address] [place] MCH (RBC) [Entitic mass] 27.7 pg Normal 26.0-34.0 [facility] Comment on above: Order Comment: Speci men Type: BLOOD SPECIMENOrdering Facility: [facility] Address: [address] [place] [address] Performed By: #### 5 8410-2 ####[facility] LABCLIA [id number] [place] [address] [place] MCHC (RBC) [Mass/Vol] 30.7 g/dL Normal 30.5-36.0 [facility] Comment on above: Order Comment: Speci men Type: BLOOD SPECIMENOrdering Facility: [facility] Address: [address] [place] [address] Performed By: #### 5 8410-2 ####[facility]CL[facility] [id number] [place] [address] [place] MCV (RBC) [Entitic vol] 90.2 fL Normal 80.0-100.0 [facility] Comment on above: Order Comment: Speci men Type: BLOOD SPECIMENOrdering Facility: [facility] Address: [address] [place] [address] Performed By: #### 5 8410-2 ####[facility] [id number] [place] [address] [place] Nucleated RBC (Bld) [#/Vol] 10*3/uL Normal <0.01 [facility] Comment on above: Order Comment: Speci men Type: BLOOD SPECIMENOrdering Facility: [facility] Address: [address] [place] [address] Performed By: #### 5 8410-2 ####[facility] LABCL[facility] [id number] [place] [address] [place] Platelet mean volume (Bld) [Entitic vol] 10.2 fL Normal 9.0-12.7 [facility] Comment on above: Order Comment: Speci men Type: BLOOD SPECIMENOrdering Facility: [facility] Address: [address] [place] [address] Performed By: #### 5 8410-2 ####[facility] [id number] [place] [address] [place] Platelets (Bld) [#/Vol] 223 10*3/uL Normal 150-400 [facility] Comment on above: Order Comment: Speci men Type: BLOOD SPECIMENOrdering Facility: [facility] Address: [address] [place] [address] Performed By: #### 5 8410-2 ####[facility] [id number] [place] [address] [place] RBC (Bld) [#/Vol] 3.76 10*6/uL Low 4.20-6.00 [facility] Comment on above: Order Comment: Speci men Type: BLOOD SPECIMENOrdering Facility: [facility] Address: [address] [place] [address] Performed By: #### 5 8410-2 ####[facility] [id number] [place] [address] [place] WBC (Bld) [#/Vol] 5.17 10*3/uL Normal 3.70-11.00 [facility] [place] Comment on above: Order Comment: Speci men Type: BLOOD SPECIMENOrdering Facility: [facility] Address: [address] [place] [address] Performed By: #### 5 8410-2 ####[facility] [id number] [place] [address] [place] Fact Xa PPP-aCncon 5 Coagulation factor X activated act Coag Qn (PPP) >1.50 High <0.10 [facility] Comment on above: Order Comment: Speci men Type: BLOOD SPECIMENOrdering Facility: [facility] Address: [address], [place] [address] Result Comment: Extr shawanda high heparin anti-Xa value, please verify that the specimen was not drawn through a heparin-containing line or port, as this could influence the anti-Xa level. The value could also be influenced by direct Xa inhibitor drugs such as rivaroxaban, apixaban or edoxaban.The recommended therapeutic range for treatment of venous and arterial thrombosis with intravenous unfractionated heparin is an anti Xa activity level of 0.3 to 0.7 IU/mL. In patients with concomitant therapy with thrombolytic agents and/or platelet glycoprotein IIb/IIIa antagonists, the recommended therapeutic range is an anti Xa activity level of 0.2 to 0.5 IU/mL. Performed By: #### 3 217-7, PTTAC ####[facility] [id number] [place] [address] [place] Coagulation factor X activated act Coag Qn (PPP) >1.50 High <0.10 [facility] Comment on above: Order Comment: Dylan olvera Type: BLOOD SPECIMENOrdering Facility: [facility] Address: [address] [place] [address] Result Comment: Extr shawanda high heparin anti-Xa value, please verify that the specimen was not drawn through a heparin-containing line or port, as this could influence the anti-Xa level. The value could also be influenced by direct Xa inhibitor drugs such as rivaroxaban, apixaban or edoxaban.Sample checked for clot.Result rechecked.The recommended therapeutic range for treatment of venous and arterial thrombosis with intravenous unfractionated heparin is an anti Xa activity level of 0.3 to 0.7 IU/mL. In patients with concomitant therapy with thrombolytic agents and/or platelet glycoprotein IIb/IIIa antagonists, the recommended therapeutic range is an anti Xa activity level of 0.2 to 0.5 IU/mL. Performed By: #### 3 217-7, PTTAC ####[facility] [id number] [place] [address] [place] Magnesium SerPl-mCncon 09-20 Magnesium [Mass/Vol] 2.5 mg/dL High 1.7-2.3 [facility] Comment on above: Order Comment: Speci men Type: BLOOD SPECIMENOrdering Facility: [facility] Address: [address] [place] [address] Performed By: #### 3 3762-6, , 71238-6 ####[facility] [id number] [place] [address] [place] NT-proBNP SerPl-mCncon 09-20 Natriuretic peptide.B prohormone N-Terminal [Mass/Vol] 22187 pg/mL High <450 [facility] Comment on above: Order Comment: Speci men Type: BLOOD SPECIMENOrdering Facility: [facility] Address: [address] [place] [address] Performed By: #### 3 3762-6, , 45280-2 ####[facility] [id number] [place] [address] [place] PTT, ANTICOAGULANT THERAPYon 09-20-2024 aPTT Coag (PPP) [Time] 42.3 s High 23.0-32.4 [facility] Comment on above: Order Comment: Speci men Type: BLOOD SPECIMENOrdering Facility: [facility] Address: [address] [place] [address] Performed By: #### P TTAC ####[facility] [id number] [place] [address] [place] aPTT Coag (PPP) [Time] 33.6 s High 23.0-32.4 [facility] Comment on above: Order Comment: Speci men Type: BLOOD SPECIMENOrdering Facility: [facility] Address: [address] [place] [address] Performed By: #### 3 217-7, PTTAC ####[facility] [id number] [place] [address] [place] aPTT Coag (PPP) [Time] 97.9 s High 23.0-32.4 [facility] Comment on above: Order Comment: Speci men Type: BLOOD SPECIMENOrdering Facility: [facility] Address: [address] [place] [address] Result Comment: Samp le checked for clot.Result rechecked. Performed By: #### 3 217-7, PTTAC ####[facility] [id number] [place] [address] [place] aPTT Coag (PPP) [Time] s High 23.0-32.4 [facility] Comment on above: Order Comment: Speci men Type: BLOOD SPECIMENOrdering Facility: [facility] Address: [address] [place] [address] Result Comment: Samp le checked for clot.Result rechecked. Performed By: #### P TTAC ####[facility] [id number] [place] [address] [place] THERAPY NTon 09-20-2024 THERAPY NT Normal [facility] THERAPY NT Normal [facility] Basic metabolic 2000 panelon 09-19-2024 Anion gap [Moles/Vol] 15 mmol/L Normal 8-15 [facility] Comment on above: Order Comment: Speci men Type: BLOOD SPECIMENOrdering Facility: [facility] Address: [address] [place] [address] Performed By: #### 3 051-0, 61362-7, 3024-7, 79510-3 ####[facility] [id number] [place] [address] [place] Calcium [Mass/Vol] 8.9 mg/dL Normal 8.5-10.2 [facility] Comment on above: Order Comment: Speci men Type: BLOOD SPECIMENOrdering Facility: [facility] Address: [address] [place] [address] Performed By: #### 3 051-0, 74404-7, 3024-7, 28727-7 ####[facility] [id number] [place] [address] [place] Chloride [Moles/Vol] 98 mmol/L Normal 98-107 [facility] Comment on above: Order Comment: Speci men Type: BLOOD SPECIMENOrdering Facility: [facility] Address: [address] [place] [address] Performed By: #### 3 051-0, 54606-6, 3024-7, 20124-0 ####[facility] [id number] [place] [address] [place] CO2 [Moles/Vol] 23 mmol/L Normal 22-30 [facility] Comment on above: Order Comment: Speci men Type: BLOOD SPECIMENOrdering Facility: [facility] Address: [address] [place] [address] Performed By: #### 3 051-0, 27078-4, 3024-7, 70938-2 ####[facility] [id number] [place] [address] [place] Creatinine [Mass/Vol] 2.28 mg/dL High 0.73-1.22 [facility] Comment on above: Order Comment: Speci men Type: BLOOD SPECIMENOrdering Facility: [facility] Address: [address] [place] [address] Performed By: #### 3 051-0, 21118-3, 3024-7, 75169-5 ####[facility] [id number] [place] [address] [place] Creatinine and Glomerular filtration rate.predicted panel (S/P/Bld) 28 mL/min/1.73m??? Low >=60 [facility] Comment on above: Order Comment: Speci men Type: BLOOD SPECIMENOrdering Facility: [facility] Address: [address] [place] [address] Result Comment: Etta mated Glomerular Filtration Rate [...] reflect actual GFR. Performed By: #### 3 051-0, 06037-2, 7, 92793-2 ####[facility] [id number] [place] [address] [place] Glucose [Mass/Vol] 107 mg/dL High 74-99 [facility] Comment on above: Order Comment: Dylan olvera Type: BLOOD SPECIMENOrdering Facility: [facility] Address: [address] [place] [address] Result Comment: The [place] [employer] (ADA) provides guidance for cutoff [...] Standards of Medical Care in Diabetes 2016, [place] [employer]. Diabetes Care. 2016.39(Suppl 1). Performed By: #### 3 051-0, , 3024-03, 86587-1 ####[facility] [id number] [place] [address] [place] Potassium [Moles/Vol] 4.1 mmol/L Normal 3.7-5.1 [facility] Comment on above: Order Comment: Dylan olvera Type: BLOOD SPECIMENOrdering Facility: [facility] Address: [address] [place] [address] Performed By: #### 3 051-0, 39461-5, 3024-03, 42943-1 ####[facility] [id number] [place] [address] [place] Sodium [Moles/Vol] 136 mmol/L Normal 136-144 [facility] Comment on above: Order Comment: Speci men Type: BLOOD SPECIMENOrdering Facility: [facility] Address: [address] [place] [address] Performed By: #### 3 051-0, 33782-6, 3024-7, 47930-8 ####[facility] [id number] [place] [address] [place] Urea nitrogen [Mass/Vol] 41 mg/dL High 9-24 [facility] Comment on above: Order Comment: Speci men Type: BLOOD SPECIMENOrdering Facility: [facility] Address: [address] [place] [address] Performed By: #### 3 051-0, 64810-4, 3024-7, 28118-1 ####[facility] [id number] [place] [address] [place] CBC panel Auto (Bld)on 09-19 Erythrocyte distribution width (RBC) [Ratio] 20.0 % High 11.5-15.0 [facility] Comment on above: Order Comment: Speci men Type: BLOOD SPECIMENOrdering Facility: [facility] Address: [address] [place] [address] Performed By: #### 5 8410-2 ####[facility] [id number] [place] [address] [place] Hematocrit (Bld) [Volume fraction] 33.3 % Low 39.0-51.0 [facility] Comment on above: Order Comment: Speci men Type: BLOOD SPECIMENOrdering Facility: [facility] Address: [address] [place] [address] Performed By: #### 5 8410-2 ####[facility] [id number] [place] [address] [place] Hemoglobin (Bld) [Mass/Vol] 9.9 g/dL Low 13.0-17.0 [facility] Comment on above: Order Comment: Speci men Type: BLOOD SPECIMENOrdering Facility: [facility] Address: [address] [place] [address] Performed By: #### 5 8410-2 ####[facility] [id number] [place] [address] [place] MCH (RBC) [Entitic mass] 26.4 pg Normal 26.0-34.0 [facility] Comment on above: Order Comment: Speci men Type: BLOOD SPECIMENOrdering Facility: [facility] Address: [address] [place] [address] Performed By: #### 5 8410-2 ####[facility] [id number] [place] [address] [place] MCHC (RBC) [Mass/Vol] 29.7 g/dL Low 30.5-36.0 [facility] Comment on above: Order Comment: Speci men Type: BLOOD SPECIMENOrdering Facility: [facility] Address: [address] [place] [address] Performed By: #### 5 8410-2 ####[facility] [id number] [place] [address] [place] MCV (RBC) [Entitic vol] 88.8 fL Normal 80.0-100.0 [facility] Comment on above: Order Comment: Speci men Type: BLOOD SPECIMENOrdering Facility: [facility] Address: [address] [place] [address] Performed By: #### 5 8410-2 ####[facility] [id number] [place] [address] [place] Nucleated RBC (Bld) [#/Vol] 10*3/uL Normal <0.01 [facility] Comment on above: Order Comment: Speci men Type: BLOOD SPECIMENOrdering Facility: [facility] Address: [address] [place] [address] Performed By: #### 5 8410-2 ####[facility] [id number] [place] [address] [place] Platelet mean volume (Bld) [Entitic vol] 9.7 fL Normal 9.0-12.7 [facility] Comment on above: Order Comment: Speci men Type: BLOOD SPECIMENOrdering Facility: [facility] Address: [address] [place] [address] Performed By: #### 5 8410-2 ####[facility] [id number] [place] [address] [place] Platelets (Bld) [#/Vol] 211 10*3/uL Normal 150-400 [facility] Comment on above: Order Comment: Speci men Type: BLOOD SPECIMENOrdering Facility: [facility] Address: [address] [place] [address] Performed By: #### 5 8410-2 ####[facility] [id number] [place] [address] [place] RBC (Bld) [#/Vol] 3.75 10*6/uL Low 4.20-6.00 [facility] [place] Comment on above: Order Comment: Speci men Type: BLOOD SPECIMENOrdering Facility: [facility] Address: [address] [place] [address] Performed By: #### 5 8410-2 ####[facility] [id number] [place] [address] [place] WBC (Bld) [#/Vol] 5.36 10*3/uL Normal 3.70-11.00 [facility] [place] Comment on above: Order Comment: Speci men Type: BLOOD SPECIMENOrdering Facility: [facility] Address: [address] [place] [address] Performed By: #### 5 8410-2 ####[facility] [id number] [address] [address] [place] Lactate (Bld) [Moles/Vol]on 09-19-2024 Lactate [Moles/Vol] 1.9 mmol/L Normal 0.5-2.2 [facility] [place] Comment on above: Order Comment: Dylan olvera Type: BLOOD SPECIMENOrdering Facility: [facility] Address: [address] [place] [address] Performed By: #### 3 2693-4 ####[facility] [id number] [place] [address] [place] Magnesium SerPl-mCncon 09-19 Magnesium [Mass/Vol] 2.4 mg/dL High 1.7-2.3 [facility] Comment on above: Order Comment: Dylan olvera Type: BLOOD SPECIMENOrdering Facility: [facility] Address: [address] [place] [address] Performed By: #### 3 051-0, 20321-2, 3024-7, 60715-7 ####[facility] [id number] [place] [address] [place] NUTRITIONon 09-19-2024 NUTRITION Normal [facility] PT panel Coag (PPP)on 2024 INR Coag (PPP) [Relative time] 1.6 {INR} High 0.9-1.3 [facility] Comment on above: Order Comment: Dylan olvera Type: BLOOD SPECIMENOrdering Facility: [facility] Address: [address] [place] [address] Result Comment: Loulou min K Antagonist (VKA) Therapeutic Range: INR 2 to 3 (Target INR of 2.5)Note: For patients treated with VKA drugs, such as warfarin, the [place] [employer] 2012 Guideline recommends [...] al. Chest 2012, 141:7S-47SNishimura RA, et al. [facility] 2017, 70: 252-289 Performed By: #### 3 4528-0, 46629-5 ####[facility] [id number] [place] [address] [place] PT Coag (PPP) [Time] 17.1 s High 9.7-13.0 [facility] Comment on above: Order Comment: Dylan olvera Type: BLOOD SPECIMENOrdering Facility: [facility] Address: [address] [place] [address] Performed By: #### 3 4528-0, 66534-9 ####[facility] [id number] [place] [address] [place] PTT, ANTICOAGULANT THERAPYon 09-19-2024 aPTT Coag (PPP) [Time] 108.5 s High 23.0-32.4 [facility] Comment on above: Order Comment: Dylan olvera Type: BLOOD SPECIMENOrdering Facility: [facility] Address: [address] [place] [address] Result Comment: Resu lt rechecked.Sample checked for clot. Performed By: #### P TTAC ####[facility] [id number] [place] [address] [place] aPTT Coag (PPP) [Time] s High 23.0-32.4 [facility] Comment on above: Order Comment: Dylan olvera Type: BLOOD SPECIMENOrdering Facility: [facility] Address: [address] [place] [address] Result Comment: Samp le checked for clot.Result rechecked. Performed By: #### P TTAC ####[facility] [id number] [place] [address] [place] T3Free SerPl-mCncon 09-19-19 25 Free T3 [Mass/Vol] 1.5 pg/mL Low 2.3-4.1 [facility] Comment on above: Order Comment: Speci men Type: BLOOD SPECIMENOrdering Facility: [facility] Address: [address] [place] [address] Performed By: #### 3 051-0, 18753-9, 3024-7, 69257-8 ####[facility] [id number] [place] [address] [place] T4 Free SerPl-mCncon 025 Free T4 [Mass/Vol] 1.0 ng/dL Normal 0.9-1.7 [facility] Comment on above: Order Comment: Speci men Type: BLOOD SPECIMENOrdering Facility: [facility] Address: [address] [place] [address] Performed By: #### 3 051-0, 13602-5, 3024-7, 69083-9 ####[facility] [id number] [place] [address] [place] aPTT PPPon 09-19-2024 aPTT Coag (PPP) [Time] 33.6 s High 23.0-32.4 [facility] Comment on above: Order Comment: Speci men Type: BLOOD SPECIMENOrdering Facility: [facility] Address: [address] [place] [address] Performed By: #### 3 4528-0, 65114-0 ####[facility] [id number] [place] [address] [place] CARDIAC IMPLANTABLE DEVICE C HECKOrdered By: Leeann Blount on 09-18-2024 Atrial Tachy Statistic AT/AF [place] Percent 33.00 [facility] Work Phone: [phone] Battery Status OK [facility] Work Phone: [phone] Bj Setting AT Mode Switch Rate 170 [facility] Work Phone: [phone] Bj Setting Lower Rate Limit 50 [facility] Work Phone: [phone] Bj Setting Maximum Sensor Rate 130 [facility] Work Phone: [phone] Bj Setting Maximum Tracking Rate 130 [facility] Work Phone: [phone] Bj Setting Mode (NBG Code) DDDR [facility] Work Phone: [phone] Bj Setting PAV Delay 200 [facility] Work Phone: [phone] Bj Setting ABDULLAHI Delay 170 [facility] Work Phone: [phone] Bj Statistic RA Percent Paced 2.00 [facility] Work Phone: [phone] Bj Statistic RV Percent Paced 8.00 [facility] Work Phone: [phone] Date Time Interrogation Session [id number] [facility] Work Phone: [phone] Implantable Lead Implant Date [id number] [facility] Work Phone: [phone] Implantable Lead Implant Date [id number] [facility] Work Phone: [phone] Implantable Lead Location Right Atrium [facility] Work Phone: [phone] Implantable Lead Location Right Ventricle [facility] Work Phone: [phone] Implantable Lead Model 7741 [employer] MRI [facility] Work Phone: [phone] Implantable Lead Model 675 [facility] Work Phone: [phone] Implantable Lead Serial Number [id number] [facility] Work Phone: [phone] Implantable Lead Serial Number [id number] [facility] Work Phone: [phone] Implantable Pulse Generator Implant Date [id number] [facility] Work Phone: [phone] 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 [facility] Work Phone: [phone] Implantable Pulse Generator Model [id number] [facility] Work Phone: [phone] Implantable Pulse Generator Serial Number [id number] [facility] Work Phone: Implantable Pulse Generator Type Defibrillator [facility] Work Phone: Lead Channel Impedance Value 652 [facility] Work Phone: Lead Channel Impedance Value 370 [facility] Work Phone: Lead Channel Sensing Intrinsic Amplitude 3.100 [facility] Work Phone: Lead Channel Sensing Intrinsic Amplitude 14.800 [facility] Work Phone: Lead Channel Setting Sensing Sensitivity 0.25 [facility] Work Phone: Lead Channel Setting Sensing Sensitivity 0.30 [facility] Work Phone: Rate 1 240 [facility] Work Phone: Rate 1 200 [facility] Work Phone: Rate 1 175 [facility] Work Phone: Shock Measured Impedance 32 [facility] [employer] Phone: Therapy Statistic Recent ATP Delivered 25 [facility] Work Phone: Therapy Statistic Recent Shocks Aborted 0 [facility] Work Phone: Therapy Statistic Recent Shocks Delivered 2 [facility] Work Phone: Zone ID 1 [facility] Work Phone: Zone ID 2 [facility] Work Phone: Zone ID 3 [facility] Work Phone: Zone Setting Type Category VF [facility] Work Phone: Zone Setting Type Category VT [facility] Work Phone: Zone Setting Type Category VT1 [facility] Work Phone: [facility] Work Phone: CARDIAC IMPLANTABLE DEVICE Marisa Sainz 09-18-2024 Leeann Blount MD - 09/18/2024 In-Office Device Evaluation DUAL LEAD ICD EVALUATION: *Room: [facility] * Presenting Rhythm: /VS * Underlying Rhythm: Sinus with rare PVC * Battery Status: Battery is at OK, 8.5 years. * Atrial Arrhythmias: None since remote from yesterday. * Ventricular Arrhythmias: There have been 2 ventricular detections since the remote yesterday. * Lead Measurements: Sensing and lead impedances are stable. * Implant Site/Symptoms: The incision and pocket are pain-free (0/10), well healed and without signs of erosion or infection. No arm swelling, syncope, pre-syncope or device related pocket stimulation. * Follow Up: As needed while in hospital. Appropriate VT Therapy: Successful * There was 1 treated episode of VT that violated the VF zone ~6pm on 09/17/24. It was initially treated with an unsuccessful ATPx1 before it was terminated with a 41J shock. * Total episodes: 1 * Number of ATP therapy: 1 * Number of shocks delivered: 1 NOTE TO PROVIDERS: Cardiac Implanted Devices Flowsheets contain detailed Programming and Evaluation data. Full Docket/PDF found below under Scanned Documents . [facility] CASE MGT INIT ASSESon 2024 CASE MGT INIT ASSES Normal [facility] CBC panel Auto (Bld)on 09-18 Erythrocyte distribution width (RBC) [Ratio] 19.9 % High 11.5-15.0 [facility] Comment on above: Order Comment: Dylan olvera Type: BLOOD SPECIMENOrdering Facility: [facility] Address: [address] [place] [address] Performed By: #### 5 8410-2 ####[facility] [id number] [place] [address] [place] Hematocrit (Bld) [Volume fraction] 34.0 % Low 39.0-51.0 [facility] Comment on above: Order Comment: Dylan olvera Type: BLOOD SPECIMENOrdering Facility: [facility] Address: [address] [place] [address] Performed By: #### 5 8410-2 ####[facility] [id number] [place] [address] [place] Hemoglobin (Bld) [Mass/Vol] 10.2 g/dL Low 13.0-17.0 [facility] Comment on above: Order Comment: Speci men Type: BLOOD SPECIMENOrdering Facility: [facility] Address: [address] [place] [address] Performed By: #### 5 8410-2 ####[facility] [id number] [place] [address] [place] MCH (RBC) [Entitic mass] 27.2 pg Normal 26.0-34.0 [facility] Comment on above: Order Comment: Speci men Type: BLOOD SPECIMENOrdering Facility: [facility] Address: [address] [place] [address] Performed By: #### 5 8410-2 ####[facility] [id number] [place] [address] [place] MCHC (RBC) [Mass/Vol] 30.0 g/dL Low 30.5-36.0 [facility] Comment on above: Order Comment: Speci men Type: BLOOD SPECIMENOrdering Facility: [facility] Address: [address] [place] [address] Performed By: #### 5 8410-2 ####[facility] [id number] [place] [address] [place] MCV (RBC) [Entitic vol] 90.7 fL Normal 80.0-100.0 [facility] Comment on above: Order Comment: Speci men Type: BLOOD SPECIMENOrdering Facility: [facility] Address: [address] [place] [address] Performed By: #### 5 8410-2 ####[facility] [id number] [place] [address] [place] Nucleated RBC (Bld) [#/Vol] 10*3/uL Normal <0.01 [facility] Comment on above: Order Comment: Speci men Type: BLOOD SPECIMENOrdering Facility: [facility] Address: [address] [place] [address] Performed By: #### 5 8410-2 ####[facility] [id number] [place] [address] [place] Platelet mean volume (Bld) [Entitic vol] 10.2 fL Normal 9.0-12.7 [facility] Comment on above: Order Comment: Speci men Type: BLOOD SPECIMENOrdering Facility: [facility] Address: [address] [place] [address] Performed By: #### 5 8410-2 ####[facility] [id number] [place] [address] [place] Platelets (Bld) [#/Vol] 223 10*3/uL Normal 150-400 [facility] Comment on above: Order Comment: Speci men Type: BLOOD SPECIMENOrdering Facility: [facility] Address: [address] [place] [address] Performed By: #### 5 8410-2 ####[facility] [id number] [place] [address] [place] RBC (Bld) [#/Vol] 3.75 10*6/uL Low 4.20-6.00 [facility] [place] Comment on above: Order Comment: Speci men Type: BLOOD SPECIMENOrdering Facility: [facility] Address: [address] [place] [address] Performed By: #### 5 8410-2 ####[facility] [id number] [place] [id number] [place] WBC (Bld) [#/Vol] 5.36 10*3/uL Normal 3.70-11.00 [facility] [place] Comment on above: Order Comment: Speci men Type: BLOOD SPECIMENOrdering Facility: [facility] Address: [address] [place] [address] Performed By: #### 5 8410-2 ####[facility] [id number] [address] [address] [place] CONSULTon 09-18-2024 CONSULT Normal [facility] CONSULT Normal [facility] Comprehensive metabolic 2000 panelon 09-18-2024 Albumin [Mass/Vol] 3.4 g/dL Low 3.9-4.9 [facility] Comment on above: Order Comment: Speci men Type: BLOOD SPECIMENOrdering Facility: [facility] Address: [address] [place] [address] Performed By: #### 2 4323-8, 3015-3, ####[facility] [id number] [place] [address] [place] ALP [Catalytic activity/Vol] 108 U/L Normal 38-113 [facility] Comment on above: Order Comment: Speci men Type: BLOOD SPECIMENOrdering Facility: [facility] Address: [address] [place] [address] Performed By: #### 2 4323-8, 3015-3, ####[facility] [id number] [place] [id number] [place] ALT [Catalytic activity/Vol] 17 U/L Normal 10-54 [facility] Comment on above: Order Comment: Speci men Type: BLOOD SPECIMENOrdering Facility: [facility] Address: [address] [place], [place] [address] Performed By: #### 2 4323-8, 3015-3, ####[facility] [id number] [place] [id number] [place] Anion gap [Moles/Vol] 14 mmol/L Normal 8-15 [facility] Comment on above: Order Comment: Speci men Type: BLOOD SPECIMENOrdering Facility: [facility] Address: [address] [place], [place] [address] Performed By: #### 2 4323-8, 6-3, ####[facility] [id number] [place] [address] [place] AST [Catalytic activity/Vol] 25 U/L Normal 14-40 [facility] Comment on above: Order Comment: Speci men Type: BLOOD SPECIMENOrdering Facility: [facility] Address: [address] [place] [address] Performed By: #### 2 4323-8, 3015-3, ####[facility] [id number] [place] [address] [place] Bilirubin [Mass/Vol] 0.8 mg/dL Normal 0.2-1.3 [facility] Comment on above: Order Comment: Speci men Type: BLOOD SPECIMENOrdering Facility: [facility] Address: [address] [place] [address] Performed By: #### 2 4323-8, 3, ####[facility] [id number] [place] [address] [place] Calcium [Mass/Vol] 9.0 mg/dL Normal 8.5-10.2 [facility] Comment on above: Order Comment: Speci men Type: BLOOD SPECIMENOrdering Facility: [facility] Address: [address] [place] [address] Performed By: #### 2 4323-8, 3015-3, ####[facility] [id number] [place] [address] [place] Chloride [Moles/Vol] 101 mmol/L Normal 98-107 [facility] Comment on above: Order Comment: Speci men Type: BLOOD SPECIMENOrdering Facility: [facility] Address: [address] [place] [address] Performed By: #### 2 4323-8, 3015-3, ####[facility] [id number] [place] [id number] [place] CO2 [Moles/Vol] 25 mmol/L Normal 22-30 [facility] Comment on above: Order Comment: Dylan olvera Type: BLOOD SPECIMENOrdering Facility: [facility] Address: [address] [place] [address] Performed By: #### 2 4323-8, 6-3, ####[facility] [id number] [place] [address] [place] Creatinine [Mass/Vol] 2.16 mg/dL High 0.73-1.22 [facility] Comment on above: Order Comment: Dylan olvera Type: BLOOD SPECIMENOrdering Facility: [facility] Address: [address] [place] [address] Performed By: #### 2 4323-8, 3, ####[facility] [id number] [place] [address] [place] Creatinine and Glomerular filtration rate.predicted panel (S/P/Bld) 30 mL/min/1.73m??? Low >=60 [facility] Comment on above: Order Comment: Dylan olvera Type: BLOOD SPECIMENOrdering Facility: [facility] Address: [address] [place] [address] Result Comment: Etta mated Glomerular Filtration Rate [...] actual GFR. Performed By: #### 2 4323-8, 3, ####[facility] [id number] [place] [id number] [place] Glucose [Mass/Vol] 99 mg/dL Normal 74-99 [facility] Comment on above: Order Comment: Dylan olvera Type: BLOOD SPECIMENOrdering Facility: [facility] Address: [address] [place] [address] Result Comment: The [place] Diabetes Association (ADA) provides guidance for cutoff [...] Standards of Medical Care in Diabetes 2016, [place] [employer] Association. Diabetes Care. 2016.39(Suppl 1). Performed By: #### 2 4323-8, 3015-11, ####[facility] [id number] [place] [address] [place] Potassium [Moles/Vol] 3.9 mmol/L Normal 3.7-5.1 [facility] Comment on above: Order Comment: Speci men Type: BLOOD SPECIMENOrdering Facility: [facility] Address: [address] [place] [address] Performed By: #### 2 4323-8, 3015-11, ####[facility] [id number] [place] [address] [place] Protein [Mass/Vol] 6.5 g/dL Normal 6.3-8.0 [facility] Comment on above: Order Comment: Speci men Type: BLOOD SPECIMENOrdering Facility: [facility] Address: [address] [place] [address] Performed By: #### 2 4323-8, 3015-11, ####[facility] [id number] [place] [id number] [place] Sodium [Moles/Vol] 140 mmol/L Normal 136-144 [facility] Comment on above: Order Comment: Speci men Type: BLOOD SPECIMENOrdering Facility: [facility] Address: [address] [place] [address] Performed By: #### 2 4323-8, 3015-3, ####[facility] [id number] [place] [id number] [place] Urea nitrogen [Mass/Vol] 40 mg/dL High 9-24 [facility] Comment on above: Order Comment: Dylan men Type: BLOOD SPECIMENOrdering Facility: [facility] Address: [address] [place] [address] Performed By: #### 2 4323-8, 3, ####[facility] [id number] [place] [address] [place] ECG COMPLETEon 09-18-2024 ECG COMPLETE Normal [facility] HbA1c (Bld)on 09-18-2024 Average glucose Estimated from glycated hemoglobin (Bld) [Mass/Vol] 111 mg/dL Normal [facility] Comment on above: Order Comment: Dylan men Type: BLOOD SPECIMENOrdering Facility: [facility] Address: [address] [place] [address] Result Comment: eAG: (Estimated average glucose) is a calculated value from HgbA1c and is kiosk sales representative of the average blood glucose level in the last 2-3 month period. Performed By: #### 5 5454-3 ####[facility] [id number] [place] [id number] [place] HbA1c (Bld) [Mass fraction] 5.5 % Normal 4.3-5.6 [facility] Comment on above: Order Comment: Dylan may Type: BLOOD SPECIMENOrdering Facility: [facility] Address: [address] [place] [address] Result Comment: [place] Diabetes Association guidelines indicate that patients with HgbA1c in the range 5.7-6.4% are at increased risk for development of diabetes, and intervention by lifestyle modification may be beneficial. HgbA1c greater or equal to 6.5% is considered diagnostic of diabetes. Performed By: #### 5 5454-3 ####[facility] [id number] [place] [id number] [place] Magnesium SerPl-mCncon 09-18 Magnesium [Mass/Vol] 2.4 mg/dL High 1.7-2.3 [facility] Comment on above: Order Comment: Speci men Type: BLOOD SPECIMENOrdering Facility: [facility] Address: [address] [place] [address] Performed By: #### 2 4323-8, 3015-3, ####[facility] [id number] [address] [place] No Panel InformationOrdered By: Leeann Blount on 09-18-2024 Implantable Lead Connection Status Connected [facility] Work Phone: 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 [employer] [facility] Work Phone: Lead Channel Setting Pacing Amplitude 2.000 [facility] Work Phone: Lead Channel Setting Pacing Pulse Width 0.5 [facility] Work Phone: Therapies 41J, 41J [facility] Work Phone: Zone Setting Status On [facility] Work Phone: TSH SerPl-aCncon 09-18-2024 TSH Qn 5.910 m[IU]/L High 0.270-4.200 [facility] Comment on above: Order Comment: Speci men Type: BLOOD SPECIMENOrdering Facility: [facility] Address: [address] [place] [address] Performed By: #### 2 4323-8, 3015-3, ####[facility] [id number] [place] [id number] [place] URINALYSIS, DIPSTICK ONLYon 09-18-2024 Bilirubin Ql (U) Negative Normal Negative [facility] Comment on above: Order Comment: Speci men Type: URINE SPECIMENOrdering Facility: [facility] Address: [address] [place] [address] Performed By: #### U A ####[facility] [id number] [place] [address] [place] Clarity (Unsp spec) Clear Normal Clear [facility] Comment on above: Order Comment: Speci men Type: URINE SPECIMENOrdering Facility: [facility] Address: [address] [place] [address] Performed By: #### U A ####[facility] [id number] [place] [address] [place] Color (U) Yellow Normal Yellow [facility] Comment on above: Order Comment: Speci men Type: URINE SPECIMENOrdering Facility: [facility] Address: [address] [place] [address] Performed By: #### U A ####[facility] [id number] [place] [address] [place] Glucose Test strip (U) [Mass/Vol] Negative Normal Negative [facility] Comment on above: Order Comment: Speci men Type: URINE SPECIMENOrdering Facility: [facility] Address: [address] [place] [address] Performed By: #### U A ####[facility] [id number] [place] [address] [place] Hemoglobin Ql (U) Negative Normal Negative [facility] Comment on above: Order Comment: Speci men Type: URINE SPECIMENOrdering Facility: [facility] Address: [address] [place] [address] Performed By: #### U A ####[facility] [id number] [place] [address] [place] Ketones Ql (U) Negative Normal Negative [facility] Comment on above: Order Comment: Speci men Type: URINE SPECIMENOrdering Facility: [facility] Address: [address] [place] [address] Performed By: #### U A ####[facility] [id number] [place] [address] [place] Leukocyte esterase Test strip Ql (U) Negative Normal Negative [facility] Comment on above: Order Comment: Speci men Type: URINE SPECIMENOrdering Facility: [facility] Address: [address] [place] [address] Performed By: #### U A ####[facility] [id number] [place] [address] [place] Nitrite Ql (U) Negative Normal Negative [facility] Comment on above: Order Comment: Speci men Type: URINE SPECIMENOrdering Facility: [facility] Address: [address] [place] [address] Performed By: #### U A ####[facility] [id number] [place] [address] [place] pH (U) 7.5 [pH] Normal <8.5 [facility] Comment on above: Order Comment: Speci men Type: URINE SPECIMENOrdering Facility: [facility] Address: [address] [place] [address] Performed By: #### U A ####[facility] [id number] [place] [address] [place] Protein (U) [Mass/Vol] 1+ Abnormal Negative [facility] Comment on above: Order Comment: Speci men Type: URINE SPECIMENOrdering Facility: [facility] Address: [address] [place] [address] Performed By: #### U A ####[facility] [id number] [place] [address] [place] Specific gravity (U) [Rel density] 1.012 Normal 1.005-1.030 [facility] Comment on above: Order Comment: Speci men Type: URINE SPECIMENOrdering Facility: [facility] Address: [address] [place] [address] Performed By: #### U A ####[facility] [id number] [place] [address] [place] Urobilinogen Ql (U) 1.0 EU/dL Normal 0.2-1.0 EU/dL [facility] Comment on above: Order Comment: Speci men Type: URINE SPECIMENOrdering Facility: [facility] Address: [address] [place] [address] Performed By: #### U A ####[facility] [id number] [place] [address] [place] CBC W Auto Differential pane l (Bld)on 09-17-2024 Basophils (Bld) [#/Vol] 0.03 10*3/uL Normal <0.11 [facility] Comment on above: Order Comment: Speci men Type: BLOOD SPECIMENOrdering Facility: [facility] Address: [address] [place] [address] Performed By: #### 5 7021-8 ####[facility] [id number] [place] [address] [place] Basophils/100 WBC (Bld) 0.5 % Normal [facility] Comment on above: Order Comment: Speci men Type: BLOOD SPECIMENOrdering Facility: [facility] Address: [address] [place] [address] Performed By: #### 5 7021-8 ####[facility] [id number] [place] [address] [place] Differential cell count method Nom (Bld) Auto Normal [facility] Comment on above: Order Comment: Speci men Type: BLOOD SPECIMENOrdering Facility: [facility] Address: [address] [place] [address] Performed By: #### 5 7021-8 ####[facility] [id number] [place] [address] [place] Eosinophils (Bld) [#/Vol] 0.17 10*3/uL Normal <0.46 [facility] Comment on above: Order Comment: Speci men Type: BLOOD SPECIMENOrdering Facility: [facility] Address: [address] [place] [address] Performed By: #### 5 7021-8 ####[facility] [id number] [place] [address] [place] Eosinophils/100 WBC (Bld) 3.1 % Normal [facility] Comment on above: Order Comment: Speci men Type: BLOOD SPECIMENOrdering Facility: [facility] Address: [address] [place] [address] Performed By: #### 5 7021-8 ####[facility] [id number] [place] [address] [place] Erythrocyte distribution width (RBC) [Ratio] 19.9 % High 11.5-15.0 [facility] Comment on above: Order Comment: Speci men Type: BLOOD SPECIMENOrdering Facility: [facility] Address: [address] [place] [address] Performed By: #### 5 7021-8 ####[facility] [id number] [place] [address] [place] Hematocrit (Bld) [Volume fraction] 34.6 % Low 39.0-51.0 [facility] Comment on above: Order Comment: Speci men Type: BLOOD SPECIMENOrdering Facility: [facility] Address: [address] [place] [address] Performed By: #### 5 7021-8 ####[facility] [id number] [place] [address] [place] Hemoglobin (Bld) [Mass/Vol] 10.7 g/dL Low 13.0-17.0 [facility] Comment on above: Order Comment: Speci men Type: BLOOD SPECIMENOrdering Facility: [facility] Address: [address] [place] [address] Performed By: #### 5 7021-8 ####[facility] [id number] [place] [address] [place] Immature granulocytes (Bld) [#/Vol] 0.03 10*3/uL Normal <0.10 [facility] Comment on above: Order Comment: Speci men Type: BLOOD SPECIMENOrdering Facility: [facility] Address: [address] [place] [address] Performed By: #### 5 7021-8 ####[facility] [id number] [place] [address] [place] Immature granulocytes/100 WBC (Bld) 0.5 % Normal [facility] Comment on above: Order Comment: Speci men Type: BLOOD SPECIMENOrdering Facility: [facility] Address: [address] [place] [address] Performed By: #### 5 7021-8 ####[facility] [id number] [place] [address] [place] Lymphocytes (Bld) [#/Vol] 0.76 10*3/uL Low 1.00-4.00 [facility] Comment on above: Order Comment: Speci men Type: BLOOD SPECIMENOrdering Facility: [facility] Address: [address] [place] [address] Performed By: #### 5 7021-8 ####[facility] [id number] [place] [address] [place] Lymphocytes/100 WBC (Bld) 13.8 % Normal [facility] Comment on above: Order Comment: Speci men Type: BLOOD SPECIMENOrdering Facility: [facility] Address: [address] [place] [address] Performed By: #### 5 7021-8 ####[facility] [id number] [place] [address] [place] MCH (RBC) [Entitic mass] 27.6 pg Normal 26.0-34.0 [facility] Comment on above: Order Comment: Speci men Type: BLOOD SPECIMENOrdering Facility: [facility] Address: [address] [place] [address] Performed By: #### 5 7021-8 ####[facility] [id number] [place] [address] [place] MCHC (RBC) [Mass/Vol] 30.9 g/dL Normal 30.5-36.0 [facility] Comment on above: Order Comment: Speci men Type: BLOOD SPECIMENOrdering Facility: [facility] Address: [address] [place] [address] Performed By: #### 5 7021-8 ####[facility] [id number] [place] [address] [place] MCV (RBC) [Entitic vol] 89.2 fL Normal 80.0-100.0 [facility] Comment on above: Order Comment: Speci men Type: BLOOD SPECIMENOrdering Facility: [facility] Address: [address] [place] [address] Performed By: #### 5 7021-8 ####[facility] [id number] [place] [address] [place] Monocytes (Bld) [#/Vol] 0.55 10*3/uL Normal <0.87 [facility] Comment on above: Order Comment: Speci men Type: BLOOD SPECIMENOrdering Facility: [facility] Address: [address] [place] [address] Performed By: #### 5 7021-8 ####[facility] [id number] [place] [address] [place] Monocytes/100 WBC (Bld) 10.0 % Normal [facility] Comment on above: Order Comment: Speci men Type: BLOOD SPECIMENOrdering Facility: [facility] Address: [address] [place] [address] Performed By: #### 5 7021-8 ####[facility] [id number] [place] [address] [place] Neutrophils (Bld) [#/Vol] 3.97 10*3/uL Normal 1.45-7.50 [facility] Comment on above: Order Comment: Speci men Type: BLOOD SPECIMENOrdering Facility: [facility] Address: [address] [place] [address] Performed By: #### 5 7021-8 ####[facility] [id number] [place] [address] [place] Neutrophils/100 WBC (Bld) 72.1 % Normal [facility] Comment on above: Order Comment: Speci men Type: BLOOD SPECIMENOrdering Facility: [facility] Address: [address] [place] [address] Performed By: #### 5 7021-8 ####[facility] [id number] [place] [address] [place] Nucleated RBC (Bld) [#/Vol] 10*3/uL Normal <0.01 [facility] Comment on above: Order Comment: Speci men Type: BLOOD SPECIMENOrdering Facility: [facility] Address: [address] [place] [address] Performed By: #### 5 7021-8 ####[facility] LABCLIA [id number] [place] [address] [place] Nucleated RBC/100 WBC (Bld) [Ratio] 0.0 /100 WBC Normal [facility] Comment on above: Order Comment: Speci men Type: BLOOD SPECIMENOrdering Facility: [facility] Address: [address] [place] [address] Performed By: #### 5 7021-8 ####[facility] LABCLIA [id number] [place] [address] [place] Platelet mean volume (Bld) [Entitic vol] 9.7 fL Normal 9.0-12.7 [facility] Comment on above: Order Comment: Speci men Type: BLOOD SPECIMENOrdering Facility: [facility] Address: [address] [place] [address] Performed By: #### 5 7021-8 ####[facility] LABIA [id number] [place] [address] [place] Platelets (Bld) [#/Vol] 217 10*3/uL Normal 150-400 [facility] Comment on above: Order Comment: Speci men Type: BLOOD SPECIMENOrdering Facility: [facility] Address: [address] [place] [address] Performed By: #### 5 7021-8 ####[facility] LABIA [id number] [place] [address] [place] RBC (Bld) [#/Vol] 3.88 10*6/uL Low 4.20-6.00 [facility] Comment on above: Order Comment: Speci men Type: BLOOD SPECIMENOrdering Facility: [facility] Address: [address] [place] [address] Performed By: #### 5 7021-8 ####[facility] LABCLIA [id number] [place] [address] [place] WBC (Bld) [#/Vol] 5.51 10*3/uL Normal 3.70-11.00 [facility] [place] Comment on above: Order Comment: Speci men Type: BLOOD SPECIMENOrdering Facility: [facility] Address: [address] [place] [address] Performed By: #### 5 7021-8 ####[facility] LABCLIA [id number] [place] [id number] [place] CNPNon 09-17-2024 CNPN Normal [facility] Comprehensive metabolic 2000 panelon 09-17-2024 Albumin [Mass/Vol] 3.4 g/dL Low 3.9-4.9 [facility] Comment on above: Order Comment: Speci men Type: BLOOD SPECIMENOrdering Facility: [facility] Address: [address] [place] [address] Performed By: #### 1 9123-9, 67788-7, 99210-0, [id number] ####[facility] LABIA [id number] [place] [address] [place] ALP [Catalytic activity/Vol] 102 U/L Normal 38-113 [facility] Comment on above: Order Comment: Speci men Type: BLOOD SPECIMENOrdering Facility: [facility] Address: [address] [place] [address] Performed By: #### 1 9123-9, 19799-7, 13122-6, [id number] ####[facility] [id number] [place] [address] [place] ALT [Catalytic activity/Vol] 17 U/L Normal 10-54 [facility] Comment on above: Order Comment: Speci men Type: BLOOD SPECIMENOrdering Facility: [facility] Address: [address] [place] [address] Performed By: #### 1 9123-9, 83394-8, 90485-5, [id number] ####[facility] LABIA [id number] [place] [address] [place] Anion gap [Moles/Vol] 13 mmol/L Normal 8-15 [facility] Comment on above: Order Comment: Speci men Type: BLOOD SPECIMENOrdering Facility: [facility] Address: [address] [place] [address] Performed By: #### 1 9123-9, 05588-7, 52308-4, [id number] ####[facility] LABCLIA [id number] [address] [address] [place] AST [Catalytic activity/Vol] 24 U/L Normal 14-40 [facility] Comment on above: Order Comment: Speci men Type: BLOOD SPECIMENOrdering Facility: [facility] Address: [address] [place] [address] Performed By: #### 1 9123-9, 53205-5, 64582-7, [id number] ####[facility] LABCLIA [id number] [place] [address] [place] Bilirubin [Mass/Vol] 1.3 mg/dL Normal 0.2-1.3 [facility] Comment on above: Order Comment: Speci men Type: BLOOD SPECIMENOrdering Facility: [facility] Address: [address] [place] [address] Performed By: #### 1 9123-9, 44423-9, 56013-1, [id number] ####[facility] LABCLIA [id number] [place] [address] [place] Calcium [Mass/Vol] 9.1 mg/dL Normal 8.5-10.2 [facility] Comment on above: Order Comment: Speci men Type: BLOOD SPECIMENOrdering Facility: [facility] Address: [address] [place] [address] Performed By: #### 1 9123-9, 43526-0, 32375-3, [id number] ####[facility] LABCLIA [id number] [address] [address] [place] Chloride [Moles/Vol] 99 mmol/L Normal 98-107 [facility] Comment on above: Order Comment: Speci men Type: BLOOD SPECIMENOrdering Facility: [facility] Address: [address] [place] [address] Performed By: #### 1 9123-9, 88277-2, 22474-0, [id number] ####[facility] LABCLIA [id number] [place] [address] [place] CO2 [Moles/Vol] 27 mmol/L Normal 22-30 [facility] Comment on above: Order Comment: Speci men Type: BLOOD SPECIMENOrdering Facility: [facility] Address: [address] [place] [address] Performed By: #### 1 9123-9, 70804-3, 03629-2, [id number] ####[facility] LABCLIA [id number] [place] [address] [place] Creatinine [Mass/Vol] 2.04 mg/dL High 0.73-1.22 [facility] Comment on above: Order Comment: Speci men Type: BLOOD SPECIMENOrdering Facility: [facility] Address: [address] [place] [address] Performed By: #### 1 9123-9, 96127-7, 40152-9, [id number] ####[facility] LABCLIA [id number] [place] [address] [place] Creatinine and Glomerular filtration rate.predicted panel (S/P/Bld) 32 mL/min/1.73m??? Low >=60 [facility] Comment on above: Order Comment: Speci men Type: BLOOD SPECIMENOrdering Facility: [facility] Address: [address] [place] [address] Result Comment: Etta mated Glomerular Filtration Rate [...] actual GFR. Performed By: #### 1 9123-9, 11780-8, 64629-3, [id number] ####[facility] LABCLIA [id number] [place] [address] [place] Glucose [Mass/Vol] 92 mg/dL Normal 74-99 [facility] Comment on above: Order Comment: Speci men Type: BLOOD SPECIMENOrdering Facility: [facility] Address: [address] [place] [address] Result Comment: The [place] [employer] Association (ADA) provides guidance for cutoff [...] Standards of Medical Care in Diabetes 2016, [place] [employer]. Diabetes Care. 2016.39(Suppl 1). Performed By: #### 1 9123-9, 04141-6, 71036-5, [id number] ####[facility] LABCLIA [id number] [place] [address] [place] Potassium [Moles/Vol] 3.4 mmol/L Low 3.7-5.1 [facility] Comment on above: Order Comment: Speci men Type: BLOOD SPECIMENOrdering Facility: [facility] Address: [address] [place] [address] Performed By: #### 1 9123-9, 00815-1, 85798-1, [id number] ####[facility] LABCLIA [id number] [place] [address] [place] Protein [Mass/Vol] 6.8 g/dL Normal 6.3-8.0 [facility] Comment on above: Order Comment: Speci men Type: BLOOD SPECIMENOrdering Facility: [facility] Address: [address] [place] [address] Performed By: #### 1 9123-9, 06471-6, 79084-2, [id number] ####[facility] LABCLIA [id number] [address] [address] [place] Sodium [Moles/Vol] 139 mmol/L Normal 136-144 [facility] Comment on above: Order Comment: Speci men Type: BLOOD SPECIMENOrdering Facility: [facility] Address: [address] [place] [address] Performed By: #### 1 9123-9, 88552-1, 85862-2, [id number] ####[facility] LABIA [id number] [address] [address] [place] Urea nitrogen [Mass/Vol] 37 mg/dL High 9-24 [facility] Comment on above: Order Comment: Speci men Type: BLOOD SPECIMENOrdering Facility: [facility] Address: [address] [place] [address] Performed By: #### 1 9123-9, 97915-7, 11345-1, [id number] ####[facility] LABIA [id number] [address] [address] [place] ED NOTEon 09-17-2024 ED NOTE Normal [facility] ED NOTE HNO ID: [id number] Author: MATY PARKER RN Service: ? Author Type: Registered Nurse Type: ED Notes Filed: 09/17/2024 16:44 Note Text: Report called to Reyna CHRIS at this time. Normal [facility] ED NOTE Normal [facility] ED PROV NOTEon 09-17-2024 ED PROV NOTE Normal [facility] ED PROV NOTE Normal [facility] ED Triage Noteon 09-17-2024 ED Triage Note Normal [facility] HIGH SENSITIVITY TROPONIN T (INITIAL)on 09-17-2024 Troponin T.cardiac High sensitivity method [Mass/Vol] 79 ng/L High <12 [facility] Comment on above: Order Comment: Speci men Type: BLOOD SPECIMENOrdering Facility: [facility] Address: [address] [place] [address] Performed By: #### 1 9123-9, 07948-7, 14713-6, [id number] ####[facility] LABCLIA [id number] [place] [address] [place] HIGH SENSITIVITY TROPONIN T (SECOND)on 09-17-2024 Troponin T.cardiac High sensitivity method [Mass/Vol] 76 ng/L High <12 [facility] Comment on above: Order Comment: Speci men Type: BLOOD SPECIMENOrdering Facility: [facility] Address: [address] [place] [address] Performed By: #### L [id number] ####[facility] LABCLIA [id number] [place] [address] [place] HISTORY PHYSICALon HISTORY PHYSICAL Normal [facility] Magnesium SerPl-ncon 09-17 Magnesium [Mass/Vol] 2.3 mg/dL Normal 1.7-2.3 [facility] Comment on above: Order Comment: Speci men Type: BLOOD SPECIMENOrdering Facility: [facility] Address: [address] [place] [address] Performed By: #### 1 9123-9, 28393-9, 70854-7, [id number] ####[facility] LABCLIA [id number] [address] [place] NT-proBNP SerPl-ncon 09-17 Natriuretic peptide.B prohormone N-Terminal [Mass/Vol] 76111 pg/mL High <450 [facility] Comment on above: Order Comment: Speci men Type: BLOOD SPECIMENOrdering Facility: [facility] Address: [address] [place] [address] Performed By: #### 1 9123-9, 23475-6, 91788-3, [id number] ####[facility] LABCLIA [id number] [place] [address] [place] TYPE + SCREENon 09-17-2024 ABO O Normal [facility] Comment on above: Order Comment: Speci men Type: BLOOD SPECIMENOrdering Facility: [facility] Address: [address] [place] [address] Performed By: #### T SCR ####[facility] BANKCLIA [id number] [place] [address] [place] Rh Nom (Bld) Positive Normal [facility] Comment on above: Order Comment: Speci men Type: BLOOD SPECIMENOrdering Facility: [facility] Address: [address] [place] [address] Performed By: #### T SCR ####[facility] BANKCLIA [id number] [address] [place] [facility] TYPE AND SCREEN EXPIRATION 09/20/2024 23:59 Normal [facility] Comment on above: Order Comment: Speci men Type: BLOOD SPECIMENOrdering Facility: [facility] Address: [address] [place] [address] Performed By: #### T SCR ####[facility] BLOOD BANKCLIA [id number] [place] [address] [place] XR CHEST 1V FRONTAL PORTon 0 09-17-2024 XR CHEST 1V FRONTAL PORT Normal [facility] Bacteria Ur Culton Bacteria identified Cx Nom (U) ORGANISM ID: 1 <10,000 CFU/ml Normal urogenital rohan Normal [facility] Comment on above: Performed By: #### 6 30-4 ####[facility] LABCLIA [id number] [place] [address] [place] Basic metabolic 2000 panelon 09-10-2024 Anion gap [Moles/Vol] 12 mmol/L Normal 8-15 [facility] Comment on above: Order Comment: Speci men Type: BLOOD SPECIMENOrdering Facility: [facility] Address: [address] [place] [address] Performed By: #### 2 4321-2 ####[facility] LABCLIA [id number] [place] [address] Calcium [Mass/Vol] 8.7 mg/dL Normal 8.5-10.2 [facility] Comment on above: Order Comment: Speci men Type: BLOOD SPECIMENOrdering Facility: [facility] Address: [address] [place] [address] Performed By: #### 2 4321-2 ####[facility] LABCLIA [id number] [place] [address] Chloride [Moles/Vol] 99 mmol/L Normal 98-107 [facility] Comment on above: Order Comment: Speci men Type: BLOOD SPECIMENOrdering Facility: [facility] Address: [address] [place] [address] Performed By: #### 2 4321-2 ####[facility] LABCLIA [id number] [place] [address] CO2 [Moles/Vol] 26 mmol/L Normal 22-30 [facility] Comment on above: Order Comment: Speci men Type: BLOOD SPECIMENOrdering Facility: [facility] Address: [address] [place] [address] Performed By: #### 2 4321-2 ####[facility] LABCLIA [id number] [place] [address] Creatinine [Mass/Vol] 2.53 mg/dL High 0.73-1.22 [facility] Comment on above: Order Comment: Speci men Type: BLOOD SPECIMENOrdering Facility: [facility] Address: [address] [place] [address] Performed By: #### 2 4321-2 ####[facility] LABCLIA [id number] [place] [address] Creatinine and Glomerular filtration rate.predicted panel (S/P/Bld) 25 mL/min/1.73m??? Low >=60 [facility] Comment on above: Order Comment: Speci men Type: BLOOD SPECIMENOrdering Facility: [facility] Address: [address] [place] [id number] Result Comment: Etta mated Glomerular Filtration Rate [...] actual GFR. Performed By: #### 2 4321-2 ####[facility] LABCLIA [id number] [place] [address] Glucose [Mass/Vol] 111 mg/dL High 74-99 [facility] Comment on above: Order Comment: Dylan olvera Type: BLOOD SPECIMENOrdering Facility: [facility] Address: [address] [place] [address] Result Comment: The [place] Diabetes Association (ADA) provides guidance for cutoff [...] Standards of Medical Care in Diabetes 2016, [place] [employer]. Diabetes Care. 2016.39(Suppl 1). Performed By: #### 2 4321-2 ####[facility] LABCLIA [id number] [place] [address] Potassium [Moles/Vol] 3.9 mmol/L Normal 3.7-5.1 [facility] Comment on above: Order Comment: Dylan olvera Type: BLOOD SPECIMENOrdering Facility: [facility] Address: [address] [place] [address] Performed By: #### 2 4321-2 ####[facility] LABCLIA [id number] [place] [address] Sodium [Moles/Vol] 137 mmol/L Normal 136-144 [facility] Comment on above: Order Comment: Speci men Type: BLOOD SPECIMENOrdering Facility: [facility] Address: [address] [place] [address] Performed By: #### 2 4321-2 ####[facility] LABCLIA [id number] [place] [id number] Urea nitrogen [Mass/Vol] 57 mg/dL High 9-24 [facility] Comment on above: Order Comment: Speci men Type: BLOOD SPECIMENOrdering Facility: [facility] Address: [address] [place] [address] Performed By: #### 2 4321-2 ####[facility] LABCLIA [id number] [place] [address] CNPNon 09-10-2024 CNPN Normal [facility] NT-proBNP SerPl-mCncon 09-10 Natriuretic peptide.B prohormone N-Terminal [Mass/Vol] 46765 pg/mL High <450 [facility] Comment on above: Order Comment: Speci men Type: BLOOD SPECIMENOrdering Facility: [facility] Address: [address] [place] [address] Performed By: #### 3 3762-6 ####[facility] LABCLIA [id number] [place] [address] [place] PSA SerPl-mCncon 09-10-2024 Prostate specific Ag [Mass/Vol] ng/mL Normal <2.60 [facility] Comment on above: Order Comment: Speci men Type: BLOOD SPECIMENOrdering Facility: [facility] Address: [address] [place] [address] Result Comment: Tota l PSA test methodology used is the Electrochemiluminescence Immunoassay by [employer]. Total PSA values by differing methodologies cannot be interchanged. Performed By: #### 2 857-1 ####[facility] LABCLIA [id number] LACHELLEKurtis [facility] [id number], [place] [address] [place] TESTOSTERONE, FREE AND TOTAL , BY EQUILIBRIUM ULTRAFILTRATION MASS SPECTROMETRYon 09-10-2024 Testosterone [Mass/Vol] 37.0 ng/dL Low 264.0-916.0 [facility] Comment on above: Order Comment: Speci men Type: BLOOD SPECIMENOrdering Facility: [facility] Address: [address] [place] [address] Result Comment: This [facility] LC/MS-MS method is currently certified by the CDCHormone Standardization Program (HoSt). Adult male referenceinterval is based on a population of healthy nonobese males(BMI <30) between 19 and 39 years old. Keisha, et.al. [id number],102;0976-6400. PMID: [id number]. Performed By: #### T FTEST ####[facility] LABCLIA [id number] [place] [address] Testosterone Free [Mass/Vol] 0.84 ng/dL Low 5.00-21.00 [facility] Comment on above: Order Comment: Speci men Type: BLOOD SPECIMENOrdering Facility: [facility] Address: [address] [place] [address] Performed By: #### T FTEST ####[facility] LABCLIA [id number] [place] [address] Testosterone Free/Testosterone.t otal [Mass fraction] 2.28 % Normal 1.50-4.20 [facility] Comment on above: Order Comment: Speci men Type: BLOOD SPECIMENOrdering Facility: [facility] Address: [address] [place] [address] Performed By: #### T FTEST ####[facility] LABCLIA [id number] [place] [address] Urinalysis complete panel (U )on 09-10-2024 Bacteria LM.HPF (Urine sed) [#/Area] Negative Normal Negative [facility] Comment on above: Order Comment: Speci men Type: URINE SPECIMENOrdering Facility: [facility] Address: [address] [place] [address] Performed By: #### 2 4356-8 ####[facility] LABCLIA [id number] [place] [id number] [place] Bilirubin Ql (U) Negative Normal Negative [facility] Comment on above: Order Comment: Speci men Type: URINE SPECIMENOrdering Facility: [facility] Address: [address] [place] [address] Performed By: #### 2 4356-8 ####[facility] LABCLIA [id number] [place] [address] [place] Clarity (Unsp spec) Clear Normal Clear [facility] Comment on above: Order Comment: Speci men Type: URINE SPECIMENOrdering Facility: [facility] Address: [address] [place], [place] [address] Performed By: #### 2 4356-8 ####[facility] LABCLIA [id number] [place] [address] [place] Color (U) Yellow Normal Yellow [facility] Comment on above: Order Comment: Speci men Type: URINE SPECIMENOrdering Facility: [facility] Address: [address] [place] [address] Performed By: #### 2 4356-8 ####[facility] LABCLIA [id number] [place] [id number] [place] Epithelial cells LM.HPF (Urine sed) [#/Area] None Seen Normal [facility] Comment on above: Order Comment: Speci men Type: URINE SPECIMENOrdering Facility: [facility] Address: [address] [place] [address] Performed By: #### 2 4356-8 ####[facility] LABCLIA [id number] [place] [id number] [place] Glucose Test strip (U) [Mass/Vol] Trace Abnormal Negative [facility] Comment on above: Order Comment: Speci men Type: URINE SPECIMENOrdering Facility: [facility] Address: [facility] [place] [address] Performed By: #### 2 4356-8 ####[facility] LABCLIA [id number] [facility] [place] [address] [place] Hemoglobin Ql (U) Negative Normal Negative [facility] Comment on above: Order Comment: Speci men Type: URINE SPECIMENOrdering Facility: [facility] Address: [address] [place] [address] Performed By: #### 2 4356-8 ####[facility] LABCLIA [id number] [place] [address] [place] Hyaline casts (Urine sed) [#/Area] 0 /[LPF] Normal 0 /LPF [facility] Comment on above: Order Comment: Speci men Type: URINE SPECIMENOrdering Facility: [facility] Address: [address] [place], [place] [address] Performed By: #### 2 4356-8 ####[facility] LABCLIA [id number] [place] [address] [place] Ketones Ql (U) Negative Normal Negative [facility] Comment on above: Order Comment: Speci men Type: URINE SPECIMENOrdering Facility: [facility] Address: [address] [place] [address] Performed By: #### 2 4356-8 ####[facility] LABCLIA [id number] [place] [id number] [place] Leukocyte esterase Test strip Ql (U) Negative Normal Negative [facility] Comment on above: Order Comment: Speci men Type: URINE SPECIMENOrdering Facility: [facility] Address: [address] [place] [address] Performed By: #### 2 4356-8 ####[facility] LABCLIA [id number] [place] [address] [place] Nitrite Ql (U) Negative Normal Negative [facility] Comment on above: Order Comment: Speci men Type: URINE SPECIMENOrdering Facility: [facility] Address: [address] [place] [address] Performed By: #### 2 4356-8 ####[facility] LABCLIA [id number] [place] [address] [place] pH (U) 7.0 [pH] Normal <8.5 [facility] Comment on above: Order Comment: Speci men Type: URINE SPECIMENOrdering Facility: [facility] Address: [address] [place] [address] Performed By: #### 2 4356-8 ####[facility] LABCLIA [id number] [place] [address] [place] Protein (U) [Mass/Vol] 1+ Abnormal Negative [facility] Comment on above: Order Comment: Speci men Type: URINE SPECIMENOrdering Facility: [facility] Address: [address] [place] [address] Performed By: #### 2 4356-8 ####[facility] LABCLIA [id number] [place] [address] [place] RBC LM.HPF (Urine sed) [#/Area] 0-2 /HPF Normal 0-2 /HPF [facility] Comment on above: Order Comment: Speci men Type: URINE SPECIMENOrdering Facility: [facility] Address: [address] [place] [address] Performed By: #### 2 4356-8 ####[facility] LABCLIA [id number] [place] [id number] [place] Specific gravity (U) [Rel density] 1.011 Normal 1.005-1.030 [facility] Comment on above: Order Comment: Speci men Type: URINE SPECIMENOrdering Facility: [facility] Address: [address] [place], [place] [address] Performed By: #### 2 4356-8 ####[facility] LABCLIA [id number] [place] [address] [place] Urobilinogen Ql (U) 0.2 EU/dL Normal 0.2-1.0 EU/dL [facility] Comment on above: Order Comment: Speci men Type: URINE SPECIMENOrdering Facility: [facility] Address: [address] [place] [address] Performed By: #### 2 4356-8 ####[facility] LABCLIA [id number] [place] [address] [place] WBC LM.HPF (Urine sed) [#/Area] 0-5 /HPF Normal 0-5 /HPF [facility] Comment on above: Order Comment: Speci men Type: URINE SPECIMENOrdering Facility: [facility] Address: [address] [place] [address] Performed By: #### 2 4356-8 ####[facility] LABIA [id number] [place] [address] [place] CNPNon 09-07-2024 CNPN Normal [facility] CNPNon 09-03-2024 CNPN Normal [facility] Basic metabolic 2000 panelon 08-31-2024 Anion gap [Moles/Vol] 16 mmol/L High 8-15 [facility] Comment on above: Order Comment: Speci men Type: BLOOD SPECIMENOrdering Facility: [facility] Address: [address] [place] [address] Performed By: #### 2 4321-2 ####[facility] LABCLIA [id number] [place] [address] Calcium [Mass/Vol] 9.4 mg/dL Normal 8.5-10.2 [facility] Comment on above: Order Comment: Speci men Type: BLOOD SPECIMENOrdering Facility: [facility] Address: [address] [place], [place] [address] Performed By: #### 2 4321-2 ####[facility] LABCLIA [id number] [place] [address] Chloride [Moles/Vol] 96 mmol/L Low 98-107 [facility] Comment on above: Order Comment: Speci men Type: BLOOD SPECIMENOrdering Facility: [facility] Address: [address] [place] [address] Performed By: #### 2 4321-2 ####[facility] LABCLIA [id number] [place] [address] CO2 [Moles/Vol] 22 mmol/L Normal 22-30 [facility] Comment on above: Order Comment: Speci men Type: BLOOD SPECIMENOrdering Facility: [facility] Address: [address] [place] [address] Performed By: #### 2 4321-2 ####[facility] LABCLIA [id number] [place] [address] Creatinine [Mass/Vol] 2.98 mg/dL High 0.73-1.22 [facility] Comment on above: Order Comment: Speci men Type: BLOOD SPECIMENOrdering Facility: [facility] Address: [address] [place] [address] Performed By: #### 2 4321-2 ####[facility] LABCLIA [id number] [place] [address] Creatinine and Glomerular filtration rate.predicted panel (S/P/Bld) 20 mL/min/1.73m??? Low >=60 [facility] Comment on above: Order Comment: Speci men Type: BLOOD SPECIMENOrdering Facility: [facility] Address: [address] [place] [address] Result Comment: Etta mated Glomerular Filtration Rate [...] actual GFR. Performed By: #### 2 4321-2 ####[facility] LABCLIA [id number] [place] [address] Glucose [Mass/Vol] 112 mg/dL High 74-99 [facility] Comment on above: Order Comment: Dylan olvera Type: BLOOD SPECIMENOrdering Facility: [facility] Address: [address] [place], [place] [address] Result Comment: The [place] [employer] (ADA) provides guidance for cutoff [...] Standards of Medical Care in Diabetes 2016, [place] [employer]. Diabetes Care. 2016.39(Suppl 1). Performed By: #### 2 4321-2 ####[facility] LABCLIA [id number] [place] [address] Potassium [Moles/Vol] 4.3 mmol/L Normal 3.7-5.1 [facility] Comment on above: Order Comment: Dylan olvera Type: BLOOD SPECIMENOrdering Facility: [facility] Address: [address] [place] [address] Performed By: #### 2 4321-2 ####[facility] LABCLIA [id number] [place] [address] Sodium [Moles/Vol] 134 mmol/L Low 136-144 [facility] Comment on above: Order Comment: Dylan olvera Type: BLOOD SPECIMENOrdering Facility: [facility] Address: [address] [place] [address] Performed By: #### 2 4321-2 ####[facility] LABCLIA [id number] [place] [address] Urea nitrogen [Mass/Vol] 71 mg/dL High 9-24 [facility] Comment on above: Order Comment: Speci men Type: BLOOD SPECIMENOrdering Facility: [facility] Address: [address] [place] [address] Performed By: #### 2 4321-2 ####[facility] LABCLIA [id number] [place] [address] CBC W Auto Differential pane l (Bld)on 08-31-2024 Basophils (Bld) [#/Vol] 0.04 10*3/uL Normal <0.11 [facility] Comment on above: Order Comment: Speci men Type: BLOOD SPECIMENOrdering Facility: [facility] Address: [address] [place] [address] Performed By: #### 5 7021-8 ####[facility] LABCLIA [id number] [place] [address] Basophils/100 WBC (Bld) 0.6 % Normal [facility] Comment on above: Order Comment: Speci men Type: BLOOD SPECIMENOrdering Facility: [facility] Address: [address] [place] [address] Performed By: #### 5 7021-8 ####[facility] LABCLIA [id number] [place] [address] Differential cell count method Nom (Bld) Auto Normal [facility] Comment on above: Order Comment: Speci men Type: BLOOD SPECIMENOrdering Facility: [facility] Address: [address] [place] [address] Performed By: #### 5 7021-8 ####[facility] LABCLIA [id number] [place] [address] Eosinophils (Bld) [#/Vol] 0.03 10*3/uL Normal <0.46 [facility] Comment on above: Order Comment: Speci men Type: BLOOD SPECIMENOrdering Facility: [facility] Address: [address] [place] [address] Performed By: #### 5 7021-8 ####[facility] LABCLIA [id number] [place] [address] Eosinophils/100 WBC (Bld) 0.5 % Normal [facility] Comment on above: Order Comment: Speci men Type: BLOOD SPECIMENOrdering Facility: [facility] Address: [address] [place] [address] Performed By: #### 5 7021-8 ####[facility] LABCLIA [id number] [place] [address] Erythrocyte distribution width (RBC) [Ratio] 18.5 % High 11.5-15.0 [facility] Comment on above: Order Comment: Speci men Type: BLOOD SPECIMENOrdering Facility: [facility] Address: [address] [place] [address] Performed By: #### 5 7021-8 ####[facility] LABCLIA [id number] [place] [address] Hematocrit (Bld) [Volume fraction] 33.8 % Low 39.0-51.0 [facility] Comment on above: Order Comment: Speci men Type: BLOOD SPECIMENOrdering Facility: [facility] Address: [address] [place] [address] Performed By: #### 5 7021-8 ####[facility] LABCLIA [id number] [place] [address] Hemoglobin (Bld) [Mass/Vol] 10.5 g/dL Low 13.0-17.0 [facility] Comment on above: Order Comment: Speci men Type: BLOOD SPECIMENOrdering Facility: [facility] Address: [address] [place] [address] Performed By: #### 5 7021-8 ####[facility] LABCLIA [id number] [place] [address] Immature granulocytes (Bld) [#/Vol] 10*3/uL Normal <0.10 [facility] Comment on above: Order Comment: Speci men Type: BLOOD SPECIMENOrdering Facility: [facility] Address: [address] [place] [address] Performed By: #### 5 7021-8 ####[facility] LABCLIA [id number] [place] [address] Immature granulocytes/100 WBC (Bld) 0.3 % Normal [facility] Comment on above: Order Comment: Speci men Type: BLOOD SPECIMENOrdering Facility: [facility] Address: [address] [place] [address] Performed By: #### 5 7021-8 ####[facility] LABCLIA [id number] [place] [address] Lymphocytes (Bld) [#/Vol] 0.74 10*3/uL Low 1.00-4.00 [facility] Comment on above: Order Comment: Speci men Type: BLOOD SPECIMENOrdering Facility: [facility] Address: [address] [place] [address] Performed By: #### 5 7021-8 ####[facility] LABCLIA [id number] [place] [address] Lymphocytes/100 WBC (Bld) 11.8 % Normal [facility] Comment on above: Order Comment: Speci men Type: BLOOD SPECIMENOrdering Facility: [facility] Address: [address] [place] [address] Performed By: #### 5 7021-8 ####[facility] LABCLIA [id number] [place] [address] MCH (RBC) [Entitic mass] 27.9 pg Normal 26.0-34.0 [facility] Comment on above: Order Comment: Speci men Type: BLOOD SPECIMENOrdering Facility: [facility] Address: [address] [place] [address] Performed By: #### 5 7021-8 ####[facility] LABCLIA [id number] [place] [address] MCHC (RBC) [Mass/Vol] 31.1 g/dL Normal 30.5-36.0 [facility] Comment on above: Order Comment: Speci men Type: BLOOD SPECIMENOrdering Facility: [facility] Address: [address] [place] [address] Performed By: #### 5 7021-8 ####[facility] LABCLIA [id number] [place] [address] MCV (RBC) [Entitic vol] 89.7 fL Normal 80.0-100.0 [facility] Comment on above: Order Comment: Speci men Type: BLOOD SPECIMENOrdering Facility: [facility] Address: [address] [place] [address] Performed By: #### 5 7021-8 ####[facility] LABCLIA [id number] [place] [address] Monocytes (Bld) [#/Vol] 0.75 10*3/uL Normal <0.87 [facility] Comment on above: Order Comment: Speci men Type: BLOOD SPECIMENOrdering Facility: [facility] Address: [address] [place] [address] Performed By: #### 5 7021-8 ####[facility] LABCLIA [id number] [place] [address] Monocytes/100 WBC (Bld) 11.9 % Normal [facility] Comment on above: Order Comment: Speci men Type: BLOOD SPECIMENOrdering Facility: [facility] Address: [address] [place] [address] Performed By: #### 5 7021-8 ####[facility] LABCLIA [id number] [place] [address] Neutrophils (Bld) [#/Vol] 4.71 10*3/uL Normal 1.45-7.50 [facility] Comment on above: Order Comment: Speci men Type: BLOOD SPECIMENOrdering Facility: [facility] Address: [address] [place] [address] Performed By: #### 5 7021-8 ####[facility] LABCLIA [id number] [place] [address] Neutrophils/100 WBC (Bld) 74.9 % Normal [facility] Comment on above: Order Comment: Speci men Type: BLOOD SPECIMENOrdering Facility: [facility] Address: [address] [place] [address] Performed By: #### 5 7021-8 ####[facility] LABCLIA [id number] [place] [address] Nucleated RBC (Bld) [#/Vol] 0.02 10*3/uL High <0.01 [facility] Comment on above: Order Comment: Speci men Type: BLOOD SPECIMENOrdering Facility: [facility] Address: [address] [place] [address] Performed By: #### 5 7021-8 ####[facility] LABCLIA [id number] [place] [address] Nucleated RBC/100 WBC (Bld) [Ratio] 0.3 /100 WBC Normal [facility] Comment on above: Order Comment: Speci men Type: BLOOD SPECIMENOrdering Facility: [facility] Address: [address] [place] [address] Performed By: #### 5 7021-8 ####[facility] LABIA [id number] [place] [address] Platelet mean volume (Bld) [Entitic vol] 10.4 fL Normal 9.0-12.7 [facility] Comment on above: Order Comment: Speci men Type: BLOOD SPECIMENOrdering Facility: [facility] Address: [address] [place] [address] Performed By: #### 5 7021-8 ####[facility] LABCLIA [id number] [place] [address] Platelets (Bld) [#/Vol] 195 10*3/uL Normal 150-400 [facility] Comment on above: Order Comment: Speci men Type: BLOOD SPECIMENOrdering Facility: [facility] Address: [address] [place] [address] Performed By: #### 5 7021-8 ####[facility] LABIA [id number] [place] [address] RBC (Bld) [#/Vol] 3.77 10*6/uL Low 4.20-6.00 [facility] Comment on above: Order Comment: Speci men Type: BLOOD SPECIMENOrdering Facility: [facility] Address: [address] [place] [address] Performed By: #### 5 7021-8 ####[facility] [id number] [place] [address] WBC (Bld) [#/Vol] 6.29 10*3/uL Normal 3.70-11.00 [facility] Comment on above: Order Comment: Speci men Type: BLOOD SPECIMENOrdering Facility: [facility] Address: [address] [place] [address] Performed By: #### 5 7021-8 ####[facility] LABCLIA [id number] [place] [address] NT-proBNP [facility] 08-31 Natriuretic peptide.B prohormone N-Terminal [Mass/Vol] 24554 pg/mL High <450 [facility] Comment on above: Order Comment: Speci men Type: BLOOD SPECIMENOrdering Facility: [facility] Address: [address] [place] [address] Performed By: #### 3 3762-6 ####[facility] LABCLIA [id number] [address] [place] CNPNon 08-28-2024 CNPN Normal [facility] Basic metabolic 2000 panelon 08-19-2024 Anion gap [Moles/Vol] 14 mmol/L Normal 8-15 [facility] Comment on above: Order Comment: Speci men Type: BLOOD SPECIMENOrdering Facility: [facility] Address: [address] [place] [address] Performed By: #### 2 4321-2, 92137-3 ####[facility] LABCLIA [id number] [place] [address] [place] Calcium [Mass/Vol] 9.1 mg/dL Normal 8.5-10.2 [facility] Comment on above: Order Comment: Speci men Type: BLOOD SPECIMENOrdering Facility: [facility] Address: [address] [place] [address] Performed By: #### 2 4321-2, 67073-2 ####[facility] LABCLIA [id number] [place] [address] [place] Chloride [Moles/Vol] 100 mmol/L Normal 98-107 [facility] Comment on above: Order Comment: Speci men Type: BLOOD SPECIMENOrdering Facility: [facility] Address: [address] [place] [address] Performed By: #### 2 4321-2, 78082-6 ####[facility] LABCLIA [id number] [place] [address] [place] CO2 [Moles/Vol] 28 mmol/L Normal 22-30 [facility] Comment on above: Order Comment: Speci men Type: BLOOD SPECIMENOrdering Facility: [facility] Address: [address] [place] [address] Performed By: #### 2 4321-2, 52681-4 ####[facility] LABCLIA [id number] [place] [id number] [place] Creatinine [Mass/Vol] 2.05 mg/dL High 0.73-1.22 [facility] Comment on above: Order Comment: Dylan olvera Type: BLOOD SPECIMENOrdering Facility: [facility] Address: [address] [place] [address] Performed By: #### 2 4321-2, 50461-2 ####[facility] LABCLIA [id number] [place] [address] [place] Creatinine and Glomerular filtration rate.predicted panel (S/P/Bld) 32 mL/min/1.73m??? Low >=60 [facility] Comment on above: Order Comment: Dylan olvera Type: BLOOD SPECIMENOrdering Facility: [facility] Address: [address] [place] [address] Result Comment: Etta mated Glomerular Filtration Rate [...] actual GFR. Performed By: #### 2 4321-2, 18518-6 ####[facility] LABCLIA [id number] [place] [address] [place] Glucose [Mass/Vol] 99 mg/dL Normal 74-99 [facility] Comment on above: Order Comment: Dylan olvera Type: BLOOD SPECIMENOrdering Facility: [facility] Address: [address] [place] [address] Result Comment: The [place] [employer] (ADA) provides guidance for cutoff [...] Standards of Medical Care in Diabetes 2016, [place] [employer]. Diabetes Care. 2016.39(Suppl 1). Performed By: #### 2 4321-2, 04660-2 ####[facility] LABCLIA [id number] [place] [address] [place] Potassium [Moles/Vol] 3.9 mmol/L Normal 3.7-5.1 [facility] Comment on above: Order Comment: Speci men Type: BLOOD SPECIMENOrdering Facility: [facility] Address: [address] [place] [address] Performed By: #### 2 4321-2, 90433-7 ####[facility] LABIA [id number] [place] [address] [place] Sodium [Moles/Vol] 142 mmol/L Normal 136-144 [facility] Comment on above: Order Comment: Speci men Type: BLOOD SPECIMENOrdering Facility: [facility] Address: [address] [place] [address] Performed By: #### 2 4321-2, 97444-7 ####[facility] LABIA [id number] [place] [address] [place] Urea nitrogen [Mass/Vol] 43 mg/dL High 9-24 [facility] Comment on above: Order Comment: Speci men Type: BLOOD SPECIMENOrdering Facility: [facility] Address: [address] [place] [address] Performed By: #### 2 4321-2, 98126-8 ####[facility] LABCLIA [id number] [place] [address] [place] CBC W Auto Differential pane l (Bld)on 08-19-2024 Basophils (Bld) [#/Vol] 0.04 10*3/uL NINF [facility] Basophils/100 WBC (Bld) 0.5 % [facility] Differential cell count method Nom (Bld) Auto [facility] Eosinophils (Bld) [#/Vol] 0.13 10*3/uL [facility] Eosinophils/100 WBC (Bld) 1.8 % [facility] Erythrocyte distribution width (RBC) [Ratio] 18.5 % High 11.5 - 15.0 % [facility] Hematocrit (Bld) [Volume fraction] 32.9 % Low 39.0 - 51.0 % [facility] Hemoglobin (Bld) [Mass/Vol] 10.3 g/dL Low 13.0 - 17.0 g/dL [facility] Immature granulocytes (Bld) [#/Vol] 0.04 10*3/uL [facility] Immature granulocytes/100 WBC (Bld) 0.5 % [facility] Interpretation and review of laboratory results Abnormal [facility] Lymphocytes (Bld) [#/Vol] 0.99 10*3/uL Low [facility] Lymphocytes/100 WBC (Bld) 13.6 % [facility] MCH (RBC) [Entitic mass] 28.5 pg 26.0 - 34.0 pg [facility] MCHC (RBC) [Mass/Vol] 31.3 g/dL 30.5 - 36.0 g/dL [facility] MCV (RBC) [Entitic vol] 90.9 fL 80.0 - 100.0 fL [facility] Monocytes (Bld) [#/Vol] 0.69 10*3/uL [facility] Monocytes/100 WBC (Bld) 9.5 % [facility] Neutrophils (Bld) [#/Vol] 5.40 10*3/uL [facility] Neutrophils/100 WBC (Bld) 74.1 % [facility] Nucleated RBC (Bld) [#/Vol] [facility] Nucleated RBC/100 WBC (Bld) [Ratio] 0.0 % /100 WBC [facility] Platelet mean volume (Bld) [Entitic vol] 10.3 fL 9.0 - 12.7 fL [facility] Platelets (Bld) [#/Vol] 192 10*3/uL [facility] RBC (Bld) [#/Vol] 3.62 10*6/uL Low 4.20 - 6.0 0 m/uL [facility] WBC (Bld) [#/Vol] 7.29 10*3/uL [facility] Basophils (Bld) [#/Vol] 0.04 10*3/uL Normal <0.11 [facility] Comment on above: Order Comment: Speci men Type: BLOOD SPECIMENOrdering Facility: [facility] Address: [address] [place] [address] Performed By: #### 5 7021-8 ####[facility] LABCLIA [id number] [place] [address] [place] Basophils/100 WBC (Bld) 0.5 % Normal [facility] Comment on above: Order Comment: Speci men Type: BLOOD SPECIMENOrdering Facility: [facility] Address: [address] [place] [address] Performed By: #### 5 7021-8 ####[facility] LABCLIA [id number] [place] [address] [place] Differential cell count method Nom (Bld) Auto Normal [facility] Comment on above: Order Comment: Speci men Type: BLOOD SPECIMENOrdering Facility: [facility] Address: [address] [place] [address] Performed By: #### 5 7021-8 ####[facility] LABCLIA [id number] [place] [address] [place] Eosinophils (Bld) [#/Vol] 0.13 10*3/uL Normal <0.46 [facility] Comment on above: Order Comment: Speci men Type: BLOOD SPECIMENOrdering Facility: [facility] Address: [address] [place] [address] Performed By: #### 5 7021-8 ####[facility] LABCLIA [id number] [place] [address] [place] Eosinophils/100 WBC (Bld) 1.8 % Normal [facility] Comment on above: Order Comment: Speci men Type: BLOOD SPECIMENOrdering Facility: [facility] Address: [address] [place] [address] Performed By: #### 5 7021-8 ####[facility] LABCLIA [id number] [place] [address] [place] Erythrocyte distribution width (RBC) [Ratio] 18.5 % High 11.5-15.0 [facility] Comment on above: Order Comment: Speci men Type: BLOOD SPECIMENOrdering Facility: [facility] Address: [address] [place] [address] Performed By: #### 5 7021-8 ####[facility] LABIA [id number] [place] [address] [place] Hematocrit (Bld) [Volume fraction] 32.9 % Low 39.0-51.0 [facility] Comment on above: Order Comment: Speci men Type: BLOOD SPECIMENOrdering Facility: [facility] Address: [address] [place] [address] Performed By: #### 5 7021-8 ####[facility] LABIA [id number] [place] [address] [place] Hemoglobin (Bld) [Mass/Vol] 10.3 g/dL Low 13.0-17.0 [facility] Comment on above: Order Comment: Speci men Type: BLOOD SPECIMENOrdering Facility: [facility] Address: [address] [place] [address] Performed By: #### 5 7021-8 ####[facility] LABIA [id number] [place] [address] [place] Immature granulocytes (Bld) [#/Vol] 0.04 10*3/uL Normal <0.10 [facility] Comment on above: Order Comment: Speci men Type: BLOOD SPECIMENOrdering Facility: [facility] Address: [address] [place] [address] Performed By: #### 5 7021-8 ####[facility] [id number] [place] [address] [place] Immature granulocytes/100 WBC (Bld) 0.5 % Normal [facility] Comment on above: Order Comment: Speci men Type: BLOOD SPECIMENOrdering Facility: [facility] Address: [address] [place] [address] Performed By: #### 5 7021-8 ####[facility] LABCLIA [id number] [place] [address] [place] Lymphocytes (Bld) [#/Vol] 0.99 10*3/uL Low 1.00-4.00 [facility] Comment on above: Order Comment: Speci men Type: BLOOD SPECIMENOrdering Facility: [facility] Address: [address] [place] [address] Performed By: #### 5 7021-8 ####[facility] LABCLIA [id number] [place] [address] [place] Lymphocytes/100 WBC (Bld) 13.6 % Normal [facility] Comment on above: Order Comment: Speci men Type: BLOOD SPECIMENOrdering Facility: [facility] Address: [address] [place] [address] Performed By: #### 5 7021-8 ####[facility] LABCLIA [id number] [place] [address] [place] MCH (RBC) [Entitic mass] 28.5 pg Normal 26.0-34.0 [facility] Comment on above: Order Comment: Speci men Type: BLOOD SPECIMENOrdering Facility: [facility] Address: [address] [place] [address] Performed By: #### 5 7021-8 ####[facility]CL[facility] [id number] [place] [address] [place] MCHC (RBC) [Mass/Vol] 31.3 g/dL Normal 30.5-36.0 [facility] Comment on above: Order Comment: Speci men Type: BLOOD SPECIMENOrdering Facility: [facility] Address: [address] [place] [address] Performed By: #### 5 7021-8 ####[facility]CL[facility] [id number] [place] [address] [place] MCV (RBC) [Entitic vol] 90.9 fL Normal 80.0-100.0 [facility] Comment on above: Order Comment: Speci men Type: BLOOD SPECIMENOrdering Facility: [facility] Address: [address] [place] [address] Performed By: #### 5 7021-8 ####[facility] [id number] [place] [address] [place] Monocytes (Bld) [#/Vol] 0.69 10*3/uL Normal <0.87 [facility] Comment on above: Order Comment: Speci men Type: BLOOD SPECIMENOrdering Facility: [facility] Address: [address] [place] [address] Performed By: #### 5 7021-8 ####[facility] [id number] [place] [address] [place] Monocytes/100 WBC (Bld) 9.5 % Normal [facility] Comment on above: Order Comment: Speci men Type: BLOOD SPECIMENOrdering Facility: [facility] Address: [address] [place] [address] Performed By: #### 5 7021-8 ####[facility] [id number] [place] [address] [place] Neutrophils (Bld) [#/Vol] 5.40 10*3/uL Normal 1.45-7.50 [facility] Comment on above: Order Comment: Speci men Type: BLOOD SPECIMENOrdering Facility: [facility] Address: [address] [place] [address] Performed By: #### 5 7021-8 ####[facility] [id number] [place] [address] [place] Neutrophils/100 WBC (Bld) 74.1 % Normal [facility] Comment on above: Order Comment: Speci men Type: BLOOD SPECIMENOrdering Facility: [facility] Address: [address] [place] [address] Performed By: #### 5 7021-8 ####[facility]CL[facility] [id number] [place] [address] [place] Nucleated RBC (Bld) [#/Vol] 10*3/uL Normal <0.01 [facility] Comment on above: Order Comment: Speci men Type: BLOOD SPECIMENOrdering Facility: [facility] Address: [address] [place] [address] Performed By: #### 5 7021-8 ####[facility] [id number] [place] [address] [place] Nucleated RBC/100 WBC (Bld) [Ratio] 0.0 /100 WBC Normal [facility] Comment on above: Order Comment: Speci men Type: BLOOD SPECIMENOrdering Facility: [facility] Address: [address] [place] [address] Performed By: #### 5 7021-8 ####[facility] [id number] [place] [address] [place] Platelet mean volume (Bld) [Entitic vol] 10.3 fL Normal 9.0-12.7 [facility] Comment on above: Order Comment: Speci men Type: BLOOD SPECIMENOrdering Facility: [facility] Address: [address] [place] [address] Performed By: #### 5 7021-8 ####[facility] [id number] [place] [address] [place] Platelets (Bld) [#/Vol] 192 10*3/uL Normal 150-400 [facility] Comment on above: Order Comment: Speci men Type: BLOOD SPECIMENOrdering Facility: [facility] Address: [address] [place] [address] Performed By: #### 5 7021-8 ####[facility]CL[facility] [id number] [place] [address] [place] RBC (Bld) [#/Vol] 3.62 10*6/uL Low 4.20-6.00 [facility] [place] Comment on above: Order Comment: Speci men Type: BLOOD SPECIMENOrdering Facility: [facility] Address: [address] [place] [address] Performed By: #### 5 7021-8 ####[facility] [id number] [place] [address] [place] WBC (Bld) [#/Vol] 7.29 10*3/uL Normal 3.70-11.00 [facility] Comment on above: Order Comment: Speci men Type: BLOOD SPECIMENOrdering Facility: [facility] Address: [address] [place] [address] Performed By: #### 5 7021-8 ####[facility] [id number] [place] [address] [place] CNCNPATEDon 08-19-2024 CNCNPATED Normal [facility] CNOVon 08-19-2024 CNOV Normal [facility] ECG COMPLETEon 08-19-2024 ECG COMPLETE Normal [facility] HOLTER MONITOR 48 HOURon HOLTER MONITOR 48 HOUR Normal [facility] NT-proBNP SerPl-mCncon 08-19 Natriuretic peptide.B prohormone N-Terminal [Mass/Vol] 16354 pg/mL High <450 [facility] Comment on above: Order Comment: Speci men Type: BLOOD SPECIMENOrdering Facility: [facility] Address: [address] [place] [address] Performed By: #### 2 4321-2, 33371-3 ####[facility] LABCL[facility] [id number] [place] [address] [place] CNPNon 12-02-2024 CNPN Normal [facility] CNPNon 08-14-2024 CNPN Normal [facility] CNPNon 08-03-2024 CNPN Normal [facility] CNPNon 07-30-2024 CNPN Normal [facility] CBC panel Auto (Bld)on 07-26 Erythrocyte distribution width (RBC) [Ratio] 17.2 % High 11.5-15.0 [facility] Comment on above: Order Comment: Speci men Type: BLOOD SPECIMENOrdering Facility: [facility] Address: [address] [place] [address] Performed By: #### 5 8410-2 ####[facility] [id number] [place] [address] [place] Hematocrit (Bld) [Volume fraction] 41.0 % Normal 39.0-51.0 [facility] Comment on above: Order Comment: Speci men Type: BLOOD SPECIMENOrdering Facility: [facility] Address: [address] [place] [address] Performed By: #### 5 8410-2 ####[facility] [id number] [place] [address] [place] Hemoglobin (Bld) [Mass/Vol] 12.5 g/dL Low 13.0-17.0 [facility] Comment on above: Order Comment: Speci men Type: BLOOD SPECIMENOrdering Facility: [facility] Address: [address] [place] [address] Performed By: #### 5 8410-2 ####[facility] [id number] [place] [address] [place] MCH (RBC) [Entitic mass] 27.7 pg Normal 26.0-34.0 [facility] Comment on above: Order Comment: Speci men Type: BLOOD SPECIMENOrdering Facility: [facility] Address: [address] [place] [address] Performed By: #### 5 8410-2 ####[facility] [id number] [place] [address] [place] MCHC (RBC) [Mass/Vol] 30.5 g/dL Normal 30.5-36.0 [facility] Comment on above: Order Comment: Speci men Type: BLOOD SPECIMENOrdering Facility: [facility] Address: [address] [place] [address] Performed By: #### 5 8410-2 ####[facility] [id number] [place] [address] [place] MCV (RBC) [Entitic vol] 90.7 fL Normal 80.0-100.0 [facility] Comment on above: Order Comment: Speci men Type: BLOOD SPECIMENOrdering Facility: [facility] Address: [address] [place] [address] Performed By: #### 5 8410-2 ####[facility] [id number] [place] [address] [place] Nucleated RBC (Bld) [#/Vol] 10*3/uL Normal <0.01 [facility] Comment on above: Order Comment: Speci men Type: BLOOD SPECIMENOrdering Facility: [facility] Address: [address] [place] [address] Performed By: #### 5 8410-2 ####[facility] [id number] [place] [address] [place] Platelet mean volume (Bld) [Entitic vol] 10.9 fL Normal 9.0-12.7 [facility] Comment on above: Order Comment: Speci men Type: BLOOD SPECIMENOrdering Facility: [facility] Address: [address] [place] [address] Performed By: #### 5 8410-2 ####[facility] [id number] [place] [address] [place] Platelets (Bld) [#/Vol] 158 10*3/uL Normal 150-400 [facility] Comment on above: Order Comment: Speci men Type: BLOOD SPECIMENOrdering Facility: [facility] Address: [address] [place] [address] Performed By: #### 5 8410-2 ####[facility]CL[facility] [id number] [place] [address] [place] RBC (Bld) [#/Vol] 4.52 10*6/uL Normal 4.20-6.00 [facility] Comment on above: Order Comment: Speci men Type: BLOOD SPECIMENOrdering Facility: [facility] Address: [address] [place] [address] Performed By: #### 5 8410-2 ####[facility]CL[facility] [id number] [place] [address] [place] WBC (Bld) [#/Vol] 5.57 10*3/uL Normal 3.70-11.00 [facility] [place] Comment on above: Order Comment: Speci men Type: BLOOD SPECIMENOrdering Facility: [facility] Address: [address] [place] [address] Performed By: #### 5 8410-2 ####[facility]CL[facility] [id number] [place] [address] [place] CNDSon 07-26-2024 CNDS Normal [facility] Comprehensive metabolic 2000 panelon 07-26-2024 Albumin [Mass/Vol] 3.3 g/dL Low 3.9-4.9 [facility] Comment on above: Order Comment: Speci men Type: BLOOD SPECIMENOrdering Facility: [facility] Address: [address] [place] [address] Performed By: #### 2 4323-8, 69715-3 ####[facility]CL[facility] [id number] [place] [address] [place] ALP [Catalytic activity/Vol] 86 U/L Normal 38-113 [facility] Comment on above: Order Comment: Speci men Type: BLOOD SPECIMENOrdering Facility: [facility] Address: [address] [place] [address] Performed By: #### 2 4323-8, ####[facility] LABCL[facility] [id number] [place] [id number] [place] ALT [Catalytic activity/Vol] 15 U/L Normal 10-54 [facility] Comment on above: Order Comment: Speci men Type: BLOOD SPECIMENOrdering Facility: [facility] Address: [address] [place] [address] Performed By: #### 2 432-8, ####[facility]CL[facility] [id number] [place] [address] [place] Anion gap [Moles/Vol] 10 mmol/L Normal 8-15 [facility] Comment on above: Order Comment: Speci men Type: BLOOD SPECIMENOrdering Facility: [facility] Address: [address] [place] [address] Performed By: #### 2 4323-8, ####[facility]CL[facility] [id number] [place] [address] [place] AST [Catalytic activity/Vol] 26 U/L Normal 14-40 [facility] Comment on above: Order Comment: Speci men Type: BLOOD SPECIMENOrdering Facility: [facility] Address: [address] [place] [address] Result Comment: Resu lts may be falsely increased due to interference from hemolysis. Suggest reorder as clinically indicated. Performed By: #### 2 432-8, ####[facility]CL[facility] [id number] [place] [address] [place] Bilirubin [Mass/Vol] 0.8 mg/dL Normal 0.2-1.3 [facility] Comment on above: Order Comment: Speci men Type: BLOOD SPECIMENOrdering Facility: [facility] Address: [address] [place] [address] Performed By: #### 2 4322-, ####[facility]CL[facility] [id number] [address] [address] [place] Calcium [Mass/Vol] 8.8 mg/dL Normal 8.5-10.2 [facility] Comment on above: Order Comment: Speci men Type: BLOOD SPECIMENOrdering Facility: [facility] Address: [address] [place], [place] [address] Performed By: #### 2 8, ####[facility]CL[facility] [id number] [place] [address] [place] Chloride [Moles/Vol] 101 mmol/L Normal 98-107 [facility] Comment on above: Order Comment: Speci men Type: BLOOD SPECIMENOrdering Facility: [facility] Address: [address] [place], [place] [address] Performed By: #### 2 4323-04, ####[facility] [id number] [place] [address] [place] CO2 [Moles/Vol] 30 mmol/L Normal 22-30 [facility] Comment on above: Order Comment: Speci men Type: BLOOD SPECIMENOrdering Facility: [facility] Address: [address] [place] [address] Performed By: #### 2 4323-04, ####[facility]CL[facility] [id number] [place] [id number] [place] Creatinine [Mass/Vol] 2.02 mg/dL High 0.73-1.22 [facility] Comment on above: Order Comment: Speci men Type: BLOOD SPECIMENOrdering Facility: [facility] Address: [address] [place] [address] Performed By: #### 2 4323 ####[facility] [id number] [place] [address] [place] Creatinine and Glomerular filtration rate.predicted panel (S/P/Bld) 32 mL/min/1.73m??? Low >=60 [facility] Comment on above: Order Comment: Dylan olvera Type: BLOOD SPECIMENOrdering Facility: [facility] Address: [address] [place] [address] Result Comment: Etta mated Glomerular Filtration Rate [...] actual GFR. Performed By: #### 2 4323-8, ####[facility] [id number] [place] [address] [place] Glucose [Mass/Vol] 121 mg/dL High 74-99 [facility] Comment on above: Order Comment: Dylan olvera Type: BLOOD SPECIMENOrdering Facility: [facility] Address: [address] [place] [address] Result Comment: The [place] [employer] (ADA) provides guidance for cutoff [...] Standards of Medical Care in Diabetes 2016, [place] [employer]. Diabetes Care. 2016.39(Suppl 1). Performed By: #### 2 4323-8, ####[facility]CL[facility] [id number] [place] [address] [place] Potassium [Moles/Vol] 4.2 mmol/L Normal 3.7-5.1 [facility] Comment on above: Order Comment: Speci men Type: BLOOD SPECIMENOrdering Facility: [facility] Address: [address] [place] [address] Performed By: #### 2 4323-8, ####[facility] [id number] [place] [address] [place] Protein [Mass/Vol] 6.2 g/dL Low 6.3-8.0 [facility] Comment on above: Order Comment: Speci men Type: BLOOD SPECIMENOrdering Facility: [facility] Address: [address] [place] [address] Performed By: #### 2 4323-8, ####[facility] [id number] [place] [address] [place] Sodium [Moles/Vol] 141 mmol/L Normal 136-144 [facility] Comment on above: Order Comment: Speci men Type: BLOOD SPECIMENOrdering Facility: [facility] Address: [address] [place] [address] Performed By: #### 2 4323-8, ####[facility] [id number] [place] [address] [place] Urea nitrogen [Mass/Vol] 40 mg/dL High 9-24 [facility] Comment on above: Order Comment: Speci men Type: BLOOD SPECIMENOrdering Facility: [facility] Address: [address] [place] [address] Performed By: #### 2 4323-8, ####[facility] [id number] [place] [id number] [place] Magnesium [facility] Magnesium [Mass/Vol] 2.5 mg/dL High 1.7-2.3 [facility] Comment on above: Order Comment: Speci men Type: BLOOD SPECIMENOrdering Facility: [facility] Address: [address] [place] [address] Performed By: #### 2 4323-8, 51665-7 ####[facility] [id number] [place] [id number] [place] PT EDon 07-26-2024 PT ED Normal [facility] THERAPY NTon 07-26-2024 THERAPY NT Normal [facility] Basic metabolic 2000 panelon 07-25-2024 Anion gap [Moles/Vol] 13 mmol/L Normal 8-15 [facility] Comment on above: Order Comment: Speci men Type: BLOOD SPECIMENOrdering Facility: [facility] Address: [address] [place] [address] Performed By: #### 1 9123-9, 79607-1 ####[facility] [id number] [place] [id number] [place] Calcium [Mass/Vol] 8.9 mg/dL Normal 8.5-10.2 [facility] Comment on above: Order Comment: Speci men Type: BLOOD SPECIMENOrdering Facility: [facility] Address: [address] [place], [place] [id number] Performed By: #### 1 9123-9, 98839-8 ####[facility] [id number] [facility] [place] [id number] [place] Chloride [Moles/Vol] 99 mmol/L Normal 98-107 [facility] Comment on above: Order Comment: Speci men Type: BLOOD SPECIMENOrdering Facility: [facility] Address: [address] [place] [address] Performed By: #### 1 9123-9, 52338-1 ####[facility] [id number] [facility] [place] [id number] [place] CO2 [Moles/Vol] 29 mmol/L Normal 22-30 [facility] Comment on above: Order Comment: Speci men Type: BLOOD SPECIMENOrdering Facility: [facility] Address: [address] [place] [address] Performed By: #### 1 9123-9, 54770-8 ####[facility] [id number] [place] [address] [place] Creatinine [Mass/Vol] 1.99 mg/dL High 0.73-1.22 [facility] Comment on above: Order Comment: Speci men Type: BLOOD SPECIMENOrdering Facility: [facility] Address: [address] [place] [address] Performed By: #### 1 9123-9, ####[facility] [id number] [place] [address] [place] [address] [facility] Creatinine and Glomerular filtration rate.predicted panel (S/P/Bld) 33 mL/min/1.73m??? Low >=60 [facility] Comment on above: Order Comment: Speci men Type: BLOOD SPECIMENOrdering Facility: [facility] Address: [address] [place] [address] Result Comment: Etta mated Glomerular Filtration Rate [...] actual GFR. Performed By: #### 1 9123-9, 83323-0 ####[facility] [id number] [place] [address] [place] Glucose [Mass/Vol] 92 mg/dL Normal 74-99 [facility] Comment on above: Order Comment: Speci men Type: BLOOD SPECIMENOrdering Facility: [facility] Address: [address] [place] [address] Result Comment: The [place] [employer] (ADA) provides guidance for cutoff [...] Standards of Medical Care in Diabetes 2016, [place] [employer]. Diabetes Care. 2016.39(Suppl 1). Performed By: #### 1 9123-9, 39317-1 ####[facility] [id number] [place] [address] [place] Potassium [Moles/Vol] 3.2 mmol/L Low 3.7-5.1 [facility] Comment on above: Order Comment: Speci men Type: BLOOD SPECIMENOrdering Facility: [facility] Address: [address] [place] [address] Performed By: #### 1 9123-9, 96535-0 ####[facility] [id number] [place] [address] [place] Sodium [Moles/Vol] 141 mmol/L Normal 136-144 [facility] Comment on above: Order Comment: Speci men Type: BLOOD SPECIMENOrdering Facility: [facility] Address: [address] [place] [id number] Performed By: #### 1 9123-9, 14806-7 ####[facility] [id number] [place] [id number] [place] Urea nitrogen [Mass/Vol] 40 mg/dL High 9-24 [facility] Comment on above: Order Comment: Speci men Type: BLOOD SPECIMENOrdering Facility: [facility] Address: [address] [place] [address] Performed By: #### 1 9123-9, 38355-0 ####[facility] [id number] [place] [address] [place] CBC panel Auto (Bld)on 07-25 Erythrocyte distribution width (RBC) [Ratio] 17.3 % High 11.5-15.0 [facility] Comment on above: Order Comment: Speci men Type: BLOOD SPECIMENOrdering Facility: [facility] Address: [address] [place] [address] Performed By: #### 5 8410-2 ####[facility] [id number] [place] [address] [place] Hematocrit (Bld) [Volume fraction] 41.7 % Normal 39.0-51.0 [facility] Comment on above: Order Comment: Speci men Type: BLOOD SPECIMENOrdering Facility: [facility] Address: [address] [place] [address] Performed By: #### 5 8410-2 ####[facility] [id number] [place] [address] [place] Hemoglobin (Bld) [Mass/Vol] 12.8 g/dL Low 13.0-17.0 [facility] Comment on above: Order Comment: Speci men Type: BLOOD SPECIMENOrdering Facility: [facility] Address: [address] [place] [address] Performed By: #### 5 8410-2 ####[facility] [id number] [place] [address] [place] MCH (RBC) [Entitic mass] 27.9 pg Normal 26.0-34.0 [facility] Comment on above: Order Comment: Speci men Type: BLOOD SPECIMENOrdering Facility: [facility] Address: [address] [place] [address] Performed By: #### 5 8410-2 ####[facility] LABCLIA [id number] [place] [address] [place] MCHC (RBC) [Mass/Vol] 30.7 g/dL Normal 30.5-36.0 [facility] Comment on above: Order Comment: Speci men Type: BLOOD SPECIMENOrdering Facility: [facility] Address: [address] [place] [address] Performed By: #### 5 8410-2 ####[facility] LABCLIA [id number] [place] [address] [place] MCV (RBC) [Entitic vol] 91.0 fL Normal 80.0-100.0 [facility] Comment on above: Order Comment: Speci men Type: BLOOD SPECIMENOrdering Facility: [facility] Address: [address] [place] [address] Performed By: #### 5 8410-2 ####[facility] LABCLIA [id number] [place] [address] [place] Nucleated RBC (Bld) [#/Vol] 10*3/uL Normal <0.01 [facility] Comment on above: Order Comment: Speci men Type: BLOOD SPECIMENOrdering Facility: [facility] Address: [address] [place] [address] Performed By: #### 5 8410-2 ####[facility] LABCLIA [id number] [place] [address] [place] Platelet mean volume (Bld) [Entitic vol] 10.4 fL Normal 9.0-12.7 [facility] Comment on above: Order Comment: Speci men Type: BLOOD SPECIMENOrdering Facility: [facility] Address: [address] [place] [address] Performed By: #### 5 8410-2 ####[facility] LABCLIA [id number] [place] [address] [place] Platelets (Bld) [#/Vol] 150 10*3/uL Normal 150-400 [facility] Comment on above: Order Comment: Speci men Type: BLOOD SPECIMENOrdering Facility: [facility] Address: [address] [place] [address] Performed By: #### 5 8410-2 ####[facility] LABCLIA [id number] [place] [address] [place] RBC (Bld) [#/Vol] 4.58 10*6/uL Normal 4.20-6.00 [facility] [place] Comment on above: Order Comment: Speci men Type: BLOOD SPECIMENOrdering Facility: [facility] Address: [address] [place] [address] Performed By: #### 5 8410-2 ####[facility]CLIA [id number] [place] [address] [place] WBC (Bld) [#/Vol] 5.10 10*3/uL Normal 3.70-11.00 [facility] [place] Comment on above: Order Comment: Speci men Type: BLOOD SPECIMENOrdering Facility: [facility] Address: [address] [place] [address] Performed By: #### 5 8410-2 ####[facility] LABIA [id number] [place] [id number] [place] Magnesium SerPl-mCncon 07-25 Magnesium [Mass/Vol] 2.3 mg/dL Normal 1.7-2.3 [facility] Comment on above: Order Comment: Speci men Type: BLOOD SPECIMENOrdering Facility: [facility] Address: [address] [place] [address] Performed By: #### 1 9123-9, 02846-6 ####[facility] LABCLIA [id number] [place] [id number] [place] NUTRITIONon 07-25-2024 NUTRITION Normal [facility] PT EDon 07-25-2024 PT ED Normal [facility] Basic metabolic 2000 panelon 07-24-2024 Anion gap [Moles/Vol] 15 mmol/L Normal 8-15 [facility] Comment on above: Order Comment: Speci men Type: BLOOD SPECIMENOrdering Facility: [facility] Address: [address] [place] [address] Performed By: #### 1 9123-9, 66697-0 ####[facility] LABCLIA [id number] [place] [address] [place] Calcium [Mass/Vol] 8.6 mg/dL Normal 8.5-10.2 [facility] Comment on above: Order Comment: Speci men Type: BLOOD SPECIMENOrdering Facility: [facility] Address: [address] [place] [address] Performed By: #### 1 9123-9, 55531-9 ####[facility] LABCLIA [id number] [place] [address] [place] Chloride [Moles/Vol] 100 mmol/L Normal 98-107 [facility] Comment on above: Order Comment: Speci men Type: BLOOD SPECIMENOrdering Facility: [facility] Address: [address] [place] [address] Performed By: #### 1 9123-9, 69403-8 ####[facility] LABCLIA [id number] [place] [address] [place] CO2 [Moles/Vol] 25 mmol/L Normal 22-30 [facility] Comment on above: Order Comment: Speci men Type: BLOOD SPECIMENOrdering Facility: [facility] Address: [address] [place] [address] Performed By: #### 1 9123-9, 91769-9 ####[facility] LABCLIA [id number] [place] [address] [place] Creatinine [Mass/Vol] 1.96 mg/dL High 0.73-1.22 [facility] Comment on above: Order Comment: Speci men Type: BLOOD SPECIMENOrdering Facility: [facility] Address: [address] [place] [address] Performed By: #### 1 9123-9, 25409-2 ####[facility] LABIA [id number] [place] [address] [place] Creatinine and Glomerular filtration rate.predicted panel (S/P/Bld) 34 mL/min/1.73m??? Low >=60 [facility] Comment on above: Order Comment: Dylan olvera Type: BLOOD SPECIMENOrdering Facility: [facility] Address: [address] [place] [address] Result Comment: Etta mated Glomerular Filtration Rate [...] actual GFR. Performed By: #### 1 9123-9, 84947-5 ####[facility] LABCLIA [id number] [place] [address] [place] Glucose [Mass/Vol] 80 mg/dL Normal 74-99 [facility] Comment on above: Order Comment: Dylan olvera Type: BLOOD SPECIMENOrdering Facility: [facility] Address: [address] [place] [address] Result Comment: The [place] [employer] (ADA) provides guidance for cutoff [...] Standards of Medical Care in Diabetes 2016, [place] [employer]. Diabetes Care. 2016.39(Suppl 1). Performed By: #### 1 9123-9, 60636-6 ####[facility] LABCLIA [id number] [place] [address] [place] Potassium [Moles/Vol] 3.4 mmol/L Low 3.7-5.1 [facility] Comment on above: Order Comment: Speci men Type: BLOOD SPECIMENOrdering Facility: [facility] Address: [address] [place] [address] Performed By: #### 1 9123-9, 37343-7 ####[facility] LABIA [id number] [place] [address] [place] Sodium [Moles/Vol] 140 mmol/L Normal 136-144 [facility] Comment on above: Order Comment: Speci men Type: BLOOD SPECIMENOrdering Facility: [facility] Address: [address] [place] [address] Performed By: #### 1 9123-9, 94393-6 ####[facility] LABIA [id number] [place] [address] [place] Urea nitrogen [Mass/Vol] 40 mg/dL High 9-24 [facility] Comment on above: Order Comment: Speci men Type: BLOOD SPECIMENOrdering Facility: [facility] Address: [address] [place] [address] Performed By: #### 1 9123-9, 25960-0 ####[facility] LABIA [id number] [place] [id number] [place] CASE MANAGEMon 07-24-2024 CASE MANAGEM Normal [facility] CBC panel Auto (Bld)on 07-24 Erythrocyte distribution width (RBC) [Ratio] 17.2 % High 11.5-15.0 [facility] Comment on above: Order Comment: Speci men Type: BLOOD SPECIMENOrdering Facility: [facility] Address: [address] [place] [address] Performed By: #### 5 8410-2 ####[facility] LABIA [id number] [place] [address] [place] Hematocrit (Bld) [Volume fraction] 41.8 % Normal 39.0-51.0 [facility] Comment on above: Order Comment: Speci men Type: BLOOD SPECIMENOrdering Facility: [facility] Address: [address] [place] [address] Performed By: #### 5 8410-2 ####[facility] LABIA [id number] [place] [address] [place] Hemoglobin (Bld) [Mass/Vol] 13.1 g/dL Normal 13.0-17.0 [facility] Comment on above: Order Comment: Speci men Type: BLOOD SPECIMENOrdering Facility: [facility] Address: [address] [place] [address] Performed By: #### 5 8410-2 ####[facility] [id number] [place] [address] [place] MCH (RBC) [Entitic mass] 28.2 pg Normal 26.0-34.0 [facility] Comment on above: Order Comment: Speci men Type: BLOOD SPECIMENOrdering Facility: [facility] Address: [address] [place] [address] Performed By: #### 5 8410-2 ####[facility] [id number] [place] [address] [place] MCHC (RBC) [Mass/Vol] 31.3 g/dL Normal 30.5-36.0 [facility] Comment on above: Order Comment: Speci men Type: BLOOD SPECIMENOrdering Facility: [facility] Address: [address] [place] [address] Performed By: #### 5 8410-2 ####[facility] [id number] [place] [address] [place] MCV (RBC) [Entitic vol] 90.1 fL Normal 80.0-100.0 [facility] Comment on above: Order Comment: Speci men Type: BLOOD SPECIMENOrdering Facility: [facility] Address: [address] [place] [address] Performed By: #### 5 8410-2 ####[facility] LABCLIA [id number] [place] [address] [place] Nucleated RBC (Bld) [#/Vol] 10*3/uL Normal <0.01 [facility] Comment on above: Order Comment: Speci men Type: BLOOD SPECIMENOrdering Facility: [facility] Address: [address] [place] [address] Performed By: #### 5 8410-2 ####[facility] LABCLIA [id number] [place] [address] [place] Platelet mean volume (Bld) [Entitic vol] 11.2 fL Normal 9.0-12.7 [facility] Comment on above: Order Comment: Speci men Type: BLOOD SPECIMENOrdering Facility: [facility] Address: [address] [place] [address] Performed By: #### 5 8410-2 ####[facility] LABIA [id number] [place] [address] [place] Platelets (Bld) [#/Vol] 155 10*3/uL Normal 150-400 [facility] Comment on above: Order Comment: Speci men Type: BLOOD SPECIMENOrdering Facility: [facility] Address: [address] [place] [address] Performed By: #### 5 8410-2 ####[facility] LABCLIA [id number] [place] [address] [place] RBC (Bld) [#/Vol] 4.64 10*6/uL Normal 4.20-6.00 [facility] [place] Comment on above: Order Comment: Speci men Type: BLOOD SPECIMENOrdering Facility: [facility] Address: [address] [place] [address] Performed By: #### 5 8410-2 ####[facility] LABCLIA [id number] [place] [address] [place] WBC (Bld) [#/Vol] 5.21 10*3/uL Normal 3.70-11.00 [facility] Comment on above: Order Comment: Speci men Type: BLOOD SPECIMENOrdering Facility: [facility] Address: [address] [place] [address] Performed By: #### 5 8410-2 ####[facility] LABCLIA [id number] [place] [address] [place] CNCNPATEDon 07-24-2024 CNCNPATED Normal [facility] HOLTER 48 HOUR J2on 07-24-20 24 HOLTER 48 HOUR J2 Normal [facility] Magnesium SerPl-mCncon 07-24 Magnesium [Mass/Vol] 2.2 mg/dL Normal 1.7-2.3 [facility] Comment on above: Order Comment: Speci men Type: BLOOD SPECIMENOrdering Facility: [facility] Address: [address] [place] [address] Performed By: #### 1 9123-9, 33708-3 ####[facility] LABCLIA [id number] [place] [address] [place] NURSING PROGon 07-24-2024 NURSING PROG Normal [facility] Basic metabolic 2000 panelon 07-23-2024 Anion gap [Moles/Vol] 15 mmol/L Normal 8-15 [facility] Comment on above: Order Comment: Speci men Type: BLOOD SPECIMENOrdering Facility: [facility] Address: [address] [place] [address] Performed By: #### 2 4321-2, 99979-7 ####[facility] LABCLIA [id number] [place] [address] [place] Calcium [Mass/Vol] 8.7 mg/dL Normal 8.5-10.2 [facility] Comment on above: Order Comment: Speci men Type: BLOOD SPECIMENOrdering Facility: [facility] Address: [address] [place] [address] Performed By: #### 2 4320-2, ####[facility] LABCLIA [id number] [facility] [place] [id number] [place] Chloride [Moles/Vol] 101 mmol/L Normal 98-107 [facility] Comment on above: Order Comment: Speci men Type: BLOOD SPECIMENOrdering Facility: [facility] Address: [address] [place] [address] Performed By: #### 2 2, ####[facility] LABCLIA [id number] [facility] [place] [address] [place] CO2 [Moles/Vol] 21 mmol/L Low 22-30 [facility] Comment on above: Order Comment: Speci men Type: BLOOD SPECIMENOrdering Facility: [facility] Address: [address] [place] [address] Performed By: #### 2 2, ####[facility] LABCLIA [id number] [place] [address] [place] Creatinine [Mass/Vol] 1.96 mg/dL High 0.73-1.22 [facility] Comment on above: Order Comment: Speci men Type: BLOOD SPECIMENOrdering Facility: [facility] Address: [address] [place] [address] Performed By: #### 2 2, ####[facility] LABCLIA [id number] [place] [id number] [place] Creatinine and Glomerular filtration rate.predicted panel (S/P/Bld) 34 mL/min/1.73m??? Low >=60 [facility] Comment on above: Order Comment: Dylan olvera Type: BLOOD SPECIMENOrdering Facility: [facility] Address: [address] [place] [address] Result Comment: Etta mated Glomerular Filtration Rate [...] actual GFR. Performed By: #### 2 4321-2, ####[facility] LABIA [id number] [place] [address] [place] Glucose [Mass/Vol] 75 mg/dL Normal 74-99 [facility] Comment on above: Order Comment: Dylan olvera Type: BLOOD SPECIMENOrdering Facility: [facility] Address: [address] [place] [address] Result Comment: The [place] [employer] (ADA) provides guidance for cutoff [...] Standards of Medical Care in Diabetes 2016, [place] [employer]. Diabetes Care. 2016.39(Suppl 1). Performed By: #### 2 4321-2, ####[facility] LABIA [id number] [place] [id number] [place] Potassium [Moles/Vol] 4.1 mmol/L Normal 3.7-5.1 [facility] Comment on above: Order Comment: Dylan olvera Type: BLOOD SPECIMENOrdering Facility: [facility] Address: [address] [place], [place] [address] Performed By: #### 2 4321-2, ####[facility] LABCLIA [id number] [address] [address] [place] Sodium [Moles/Vol] 137 mmol/L Normal 136-144 [facility] Comment on above: Order Comment: Speci men Type: BLOOD SPECIMENOrdering Facility: [facility] Address: [address] [place] [address] Performed By: #### 2 432-2, ####[facility] LABCLIA [id number] [place] [address] [place] Urea nitrogen [Mass/Vol] 38 mg/dL High 9-24 [facility] Comment on above: Order Comment: Speci men Type: BLOOD SPECIMENOrdering Facility: [facility] Address: [address] [place] [address] Performed By: #### 2 432-2, ####[facility] LABCLIA [id number] [place] [address] [place] CBC panel Auto (Bld)on 07-23 Erythrocyte distribution width (RBC) [Ratio] 17.5 % High 11.5-15.0 [facility] Comment on above: Order Comment: Speci men Type: BLOOD SPECIMENOrdering Facility: [facility] Address: [address] [place] [address] Performed By: #### 5 8410-2 ####[facility] LABCLIA [id number] [place] [address] [place] Hematocrit (Bld) [Volume fraction] 42.9 % Normal 39.0-51.0 [facility] Comment on above: Order Comment: Speci men Type: BLOOD SPECIMENOrdering Facility: [facility] Address: [address] [place] [address] Performed By: #### 5 8410-2 ####[facility] LABCLIA [id number] [place] [address] [place] Hemoglobin (Bld) [Mass/Vol] 12.7 g/dL Low 13.0-17.0 [facility] Comment on above: Order Comment: Speci men Type: BLOOD SPECIMENOrdering Facility: [facility] Address: [address] [place] [address] Performed By: #### 5 8410-2 ####[facility] LABIA [id number] [place] [address] [place] MCH (RBC) [Entitic mass] 28.2 pg Normal 26.0-34.0 [facility] Comment on above: Order Comment: Speci men Type: BLOOD SPECIMENOrdering Facility: [facility] Address: [address] [place] [address] Performed By: #### 5 8410-2 ####[facility] [id number] [place] [address] [place] MCHC (RBC) [Mass/Vol] 29.6 g/dL Low 30.5-36.0 [facility] Comment on above: Order Comment: Speci men Type: BLOOD SPECIMENOrdering Facility: [facility] Address: [address] [place] [address] Performed By: #### 5 8410-2 ####[facility] [id number] [place] [address] [place] MCV (RBC) [Entitic vol] 95.3 fL Normal 80.0-100.0 [facility] Comment on above: Order Comment: Speci men Type: BLOOD SPECIMENOrdering Facility: [facility] Address: [address] [place] [address] Performed By: #### 5 8410-2 ####[facility] LABIA [id number] [place] [address] [place] Nucleated RBC (Bld) [#/Vol] 10*3/uL Normal <0.01 [facility] Comment on above: Order Comment: Speci men Type: BLOOD SPECIMENOrdering Facility: [facility] Address: [address] [place] [address] Performed By: #### 5 8410-2 ####[facility] LABCLIA [id number] [place] [address] [place] Platelet mean volume (Bld) [Entitic vol] 11.0 fL Normal 9.0-12.7 [facility] Comment on above: Order Comment: Speci men Type: BLOOD SPECIMENOrdering Facility: [facility] Address: [address] [place] [address] Performed By: #### 5 8410-2 ####[facility] LABIA [id number] [place] [address] [place] Platelets (Bld) [#/Vol] 150 10*3/uL Normal 150-400 [facility] Comment on above: Order Comment: Speci men Type: BLOOD SPECIMENOrdering Facility: [facility] Address: [address] [place] [address] Performed By: #### 5 8410-2 ####[facility] LABIA [id number] [place] [address] [place] RBC (Bld) [#/Vol] 4.50 10*6/uL Normal 4.20-6.00 [facility] Comment on above: Order Comment: Speci men Type: BLOOD SPECIMENOrdering Facility: [facility] Address: [address] [place] [address] Performed By: #### 5 8410-2 ####[facility] LABIA [id number] [place] [address] [place] WBC (Bld) [#/Vol] 6.09 10*3/uL Normal 3.70-11.00 [facility] Comment on above: Order Comment: Speci men Type: BLOOD SPECIMENOrdering Facility: [facility] Address: [address] [place] [id number] Performed By: #### 5 8410-2 ####[facility] LABCL[facility] [id number] [place] [id number] [place] CONSULTon 07-23-2024 CONSULT Normal [facility] Magnesium SerPl-mCncon 07-23 Magnesium [Mass/Vol] 2.3 mg/dL Normal 1.7-2.3 [facility] Comment on above: Order Comment: Speci men Type: BLOOD SPECIMENOrdering Facility: [facility] Address: [address] [place] [address] Performed By: #### 2 4321-2, 66838-8 ####[facility] LABCL[facility] [id number] [place] [address] [place] NM CARDIAC AMYLOID SPECT/pressure tester n 07-23-2024 NM CARDIAC AMYLOID SPECT/CT Normal [facility] NUTRITIONon 07-23-2024 NUTRITION Normal [facility] Basic metabolic 2000 panelon 07-22-2024 Anion gap [Moles/Vol] 14 mmol/L Normal 8-15 [facility] Comment on above: Order Comment: Speci men Type: BLOOD SPECIMENOrdering Facility: [facility] Address: [address] [place] [address] Performed By: #### 2 4321-2 ####[facility]CL[facility] [id number] [place] [address] [place] Calcium [Mass/Vol] 9.1 mg/dL Normal 8.5-10.2 [facility] Comment on above: Order Comment: Speci men Type: BLOOD SPECIMENOrdering Facility: [facility] Address: [facility] [place] [address] Performed By: #### 2 4321-2 ####[facility]CL[facility] [id number] [place] [address] [place] Chloride [Moles/Vol] 100 mmol/L Normal 98-107 [facility] Comment on above: Order Comment: Speci men Type: BLOOD SPECIMENOrdering Facility: [facility] Address: [address] [place] [address] Performed By: #### 2 4321-2 ####[facility] [id number] [place] [address] [place] CO2 [Moles/Vol] 25 mmol/L Normal 22-30 [facility] Comment on above: Order Comment: Speci men Type: BLOOD SPECIMENOrdering Facility: [facility] Address: [address] [place] [address] Performed By: #### 2 4321-2 ####[facility] LABIA [id number] [place] [address] [place] Creatinine [Mass/Vol] 2.30 mg/dL High 0.73-1.22 [facility] Comment on above: Order Comment: Speci men Type: BLOOD SPECIMENOrdering Facility: [facility] Address: [address] [place] [address] Performed By: #### 2 4321-2 ####[facility] LABIA [id number] [address] [place] Creatinine and Glomerular filtration rate.predicted panel (S/P/Bld) 28 mL/min/1.73m??? Low >=60 [facility] Comment on above: Order Comment: Speci men Type: BLOOD SPECIMENOrdering Facility: [facility] Address: [address] [place] [address] Result Comment: Etta mated Glomerular Filtration Rate [...] actual GFR. Performed By: #### 2 4321-2 ####[facility] [id number] [place] [address] [place] Glucose [Mass/Vol] 114 mg/dL High 74-99 [facility] Comment on above: Order Comment: Speci men Type: BLOOD SPECIMENOrdering Facility: [facility] Address: [address] [place] [address] Result Comment: The [place] Diabetes Association (ADA) provides guidance for cutoff [...] Standards of Medical Care in Diabetes 2016, [place] [employer]. Diabetes Care. 2016.39(Suppl 1). Performed By: #### 2 4321-2 ####[facility] LABIA [id number] [place] [address] [place] Potassium [Moles/Vol] 3.9 mmol/L Normal 3.7-5.1 [facility] Comment on above: Order Comment: Speci men Type: BLOOD SPECIMENOrdering Facility: [facility] Address: [address] [place], [place] [address] Performed By: #### 2 4321-2 ####[facility] [id number] [place] [address] [place] Sodium [Moles/Vol] 139 mmol/L Normal 136-144 [facility] Comment on above: Order Comment: Speci men Type: BLOOD SPECIMENOrdering Facility: [facility] Address: [address] [place], [place] [address] Performed By: #### 2 4321-2 ####[facility] [id number] [place] [address] [place] Urea nitrogen [Mass/Vol] 39 mg/dL High 9-24 [facility] Comment on above: Order Comment: Speci men Type: BLOOD SPECIMENOrdering Facility: [facility] Address: [address] [place] [address] Performed By: #### 2 4321-2 ####[facility] LABCLIA [id number] [place] [address] [place] CASE MGT INIT ASSESon 2023 CASE MGT INIT ASSES Normal [facility] CBC panel Auto (Bld)on 07-22 Erythrocyte distribution width (RBC) [Ratio] 17.0 % High 11.5-15.0 [facility] Comment on above: Order Comment: Speci men Type: BLOOD SPECIMENOrdering Facility: [facility] Address: [address] [place] [address] Performed By: #### 5 8410-2 ####[facility] LABCLIA [id number] [place] [address] [place] Hematocrit (Bld) [Volume fraction] 41.8 % Normal 39.0-51.0 [facility] Comment on above: Order Comment: Speci men Type: BLOOD SPECIMENOrdering Facility: [facility] Address: [address] [place] [address] Performed By: #### 5 8410-2 ####[facility] LABCLIA [id number] [place] [address] [place] Hemoglobin (Bld) [Mass/Vol] 13.3 g/dL Normal 13.0-17.0 [facility] Comment on above: Order Comment: Speci men Type: BLOOD SPECIMENOrdering Facility: [facility] Address: [address] [place] [address] Performed By: #### 5 8410-2 ####[facility] LABCLIA [id number] [place] [address] [place] MCH (RBC) [Entitic mass] 29.0 pg Normal 26.0-34.0 [facility] Comment on above: Order Comment: Speci men Type: BLOOD SPECIMENOrdering Facility: [facility] Address: [address] [place] [address] Performed By: #### 5 8410-2 ####[facility] [id number] [place] [address] [place] MCHC (RBC) [Mass/Vol] 31.8 g/dL Normal 30.5-36.0 [facility] Comment on above: Order Comment: Speci men Type: BLOOD SPECIMENOrdering Facility: [facility] Address: [address] [place] [address] Performed By: #### 5 8410-2 ####[facility] [id number] [place] [address] [place] MCV (RBC) [Entitic vol] 91.1 fL Normal 80.0-100.0 [facility] Comment on above: Order Comment: Speci men Type: BLOOD SPECIMENOrdering Facility: [facility] Address: [address] [place] [address] Performed By: #### 5 8410-2 ####[facility] [id number] [place] [address] [place] Nucleated RBC (Bld) [#/Vol] 10*3/uL Normal <0.01 [facility] Comment on above: Order Comment: Speci men Type: BLOOD SPECIMENOrdering Facility: [facility] Address: [address] [place] [address] Performed By: #### 5 8410-2 ####[facility] [id number] [place] [address] [place] Platelet mean volume (Bld) [Entitic vol] 10.9 fL Normal 9.0-12.7 [facility] Comment on above: Order Comment: Speci men Type: BLOOD SPECIMENOrdering Facility: [facility] Address: [address] [place] [address] Performed By: #### 5 8410-2 ####[facility] [id number] [place] [address] [place] Platelets (Bld) [#/Vol] 171 10*3/uL Normal 150-400 [facility] Comment on above: Order Comment: Speci men Type: BLOOD SPECIMENOrdering Facility: [facility] Address: [address] [place] [address] Performed By: #### 5 8410-2 ####[facility] [id number] [place] [address] [place] RBC (Bld) [#/Vol] 4.59 10*6/uL Normal 4.20-6.00 [facility] Comment on above: Order Comment: Speci men Type: BLOOD SPECIMENOrdering Facility: [facility] Address: [address] [place] [address] Performed By: #### 5 8410-2 ####[facility] [id number] [place] [address] [place] WBC (Bld) [#/Vol] 5.01 10*3/uL Normal 3.70-11.00 [facility] Comment on above: Order Comment: Speci men Type: BLOOD SPECIMENOrdering Facility: [facility] Address: [address] [place] [address] Performed By: #### 5 8410-2 ####[facility] [id number] [place] [id number] [place] ECG COMPLETEon 07-22-2024 ECG COMPLETE Normal [facility] HOLTER 24 HOUR J2on 07-22-20 24 HOLTER 24 HOUR J2 Normal [facility] IMMUNOFIXATION SCREEN, SERUM on 07-22-2024 MPA RESULT No M protein is identified. Normal No M protein is identified. [facility] Comment on above: Order Comment: Speci men Type: BLOOD SPECIMENOrdering Facility: [facility] Address: [address] [place] [address] Performed By: #### I FESC ####[facility] LABCLIA [id number] [address] [place] STAFF REVIEW (MPA) Reviewed by Kinga Leonard MD Normal [facility] Comment on above: Order Comment: Speci men Type: BLOOD SPECIMENOrdering Facility: [facility] Address: [address] [place] [address] Performed By: #### I FES ####[facility] LABCLIA [id number] [place] [address] [place] KAPPA/HELM,FREE,SERon 2023 Immunoglobulin light chains.kappa.free (S) [Mass/Vol] 55.3 mg/L High 3.3-19.4 [facility] Comment on above: Order Comment: Speci men Type: BLOOD SPECIMENOrdering Facility: [facility] Address: [address] [place] [address] Result Comment: Rare ly, increased serum free light chains levels may not be detected or accurately quantified due to prozone phenomenon or in high viscosity samples using this immunoturbidimetric assay. Correlation with other laboratory results and clinical findings is recommended.The [place] Free Light Chain was performed using the Binding Site Optilite immunoturbidimetric method. Result obtained with different assay methods or kits cannot be used interchangeably. Performed By: #### K LFRS ####[facility] LABCLIA [id number] [place] [address] [place] Immunoglobulin light chains.kappa/Immuno globulin light chains.lambda (S) [Mass ratio] 0.93 Normal 0.26-1.65 [facility] Comment on above: Order Comment: Speci men Type: BLOOD SPECIMENOrdering Facility: [facility] Address: [address] [place] [address] Performed By: #### K LFRS ####[facility] LABCLIA [id number] [place] [address] [place] Immunoglobulin light chains.lambda.free [Mass/Vol] 59.7 mg/L High 5.7-26.3 [facility] Comment on above: Order Comment: Speci men Type: BLOOD SPECIMENOrdering Facility: [facility] Address: [address] [place] [address] Result Comment: Rare ly, increased serum free [...] used interchangeably. Performed By: #### K LFRS ####[facility] LABCLIA [id number] [place] [address] [place] MONOCLONAL PROT UR W/INTERPo n 07-22-2024 STAFF REVIEW (UMPA) Reviewed by Kinga Leonard MD Normal [facility] Comment on above: Order Comment: Speci men Type: URINE SPECIMENOrdering Facility: [facility] Address: [address] [place] [address] Performed By: #### U RMPA ####[facility] [id number] [place] [address] [place] UMPA RESULT No M protein is identified. Normal No M protein is identified. [facility] Comment on above: Order Comment: Speci men Type: URINE SPECIMENOrdering Facility: [facility] Address: [address] [place] [address] Performed By: #### U RMPA ####[facility] [id number] [place] [address] [place] Magnesium SerPl-mCncon 07-22 Magnesium [Mass/Vol] 2.4 mg/dL High 1.7-2.3 [facility] Comment on above: Order Comment: Speci men Type: BLOOD SPECIMENOrdering Facility: [facility] Address: [address] [place] [address] Performed By: #### 1 9123-9 ####[facility] [id number] [place] [address] [place] Prot/Creat Uron 07-22-2024 Protein/Creatinine (U) [Mass ratio] 0.36 mg/mg High <0.15 [facility] Comment on above: Order Comment: Speci men Type: URINE SPECIMENOrdering Facility: [facility] Address: [address] [place] [address] Result Comment: Adul t Proteinuria Categories:<0.15 mg/mg is considered normal to mildly increased0.15 - 0.50 mg/mg is considered moderately increased>0.50 mg/mg is considered severely increasedKDIGO. (2013). KDIGO 2012 Clinical Practice Guideline for the Evaluation and Management of Chronic Kidney Disease. Official Journal of the International Society of Nephrology, 3(1), 1-150. Performed By: #### 2 890-2 ####[facility] [id number] [place] [address] [place] Protein/Creatinine (U) [Mass ratio]on 07-22-2024 Creatinine (U) [Mass/Vol] 30.5 mg/dL Normal 20.0-300.0 [facility] Comment on above: Order Comment: Speci men Type: URINE SPECIMENOrdering Facility: [facility] Address: [address] [place] [address] Performed By: #### 2 890-2 ####[facility] [id number] [place] [id number] [place] Protein (U) [Mass/Vol] 11 mg/dL Normal 0-20 [facility] Comment on above: Order Comment: Speci men Type: URINE SPECIMENOrdering Facility: [facility] Address: [address] [place] [address] Performed By: #### 2 890-2 ####[facility] LABCL[facility] [id number] [place] [address] [place] THERAPY NTon 07-22-2024 THERAPY NT Normal [facility] TYPE + SCREENon 07-22-2024 ABO O Normal [facility] Comment on above: Order Comment: Speci men Type: BLOOD SPECIMENOrdering Facility: [facility] Address: [address] [place] [address] Performed By: #### T SCR ####[facility] BLOOD BANKCLIA [id number] [place] [address] [place] Rh Nom (Bld) Positive Normal [facility] Comment on above: Order Comment: Speci men Type: BLOOD SPECIMENOrdering Facility: [facility] Address: [address] [place] [address] Performed By: #### T SCR ####[facility] BLOOD BANKCLIA [id number] [place] [address] [place] TYPE AND SCREEN EXPIRATION 07/25/2024 23:59 Normal [facility] Comment on above: Order Comment: Speci men Type: BLOOD SPECIMENOrdering Facility: [facility] Address: [address] [place] [address] Performed By: #### T SCR ####[facility] BLOOD BANKCLIA [id number] [place] [address] [place] CBC W Auto Differential pane l (Bld)on 07-21-2024 Basophils (Bld) [#/Vol] 0.04 10*3/uL Normal <0.11 [facility] Comment on above: Order Comment: Speci men Type: BLOOD SPECIMENOrdering Facility: [facility] Address: [address] [place] [address] Performed By: #### 5 7021-8 ####[facility] LABCLIA [id number] [place] [address] [place] Basophils/100 WBC (Bld) 0.7 % Normal [facility] Comment on above: Order Comment: Speci men Type: BLOOD SPECIMENOrdering Facility: [facility] Address: [address] [place] [address] Performed By: #### 5 7021-8 ####[facility] LABCL[facility] [id number] [place] [address] [place] Differential cell count method Nom (Bld) Auto Normal [facility] Comment on above: Order Comment: Speci men Type: BLOOD SPECIMENOrdering Facility: [facility] Address: [address] [place] [address] Performed By: #### 5 7021-8 ####[facility] LABCLIA [id number] [place] [address] [place] Eosinophils (Bld) [#/Vol] 0.08 10*3/uL Normal <0.46 [facility] Comment on above: Order Comment: Speci men Type: BLOOD SPECIMENOrdering Facility: [facility] Address: [address] [place] [address] Performed By: #### 5 7021-8 ####[facility] LABCLIA [id number] [place] [address] [place] Eosinophils/100 WBC (Bld) 1.4 % Normal [facility] Comment on above: Order Comment: Speci men Type: BLOOD SPECIMENOrdering Facility: [facility] Address: [address] [place] [address] Performed By: #### 5 7021-8 ####[facility] LABCL[facility] [id number] [place] [address] [place] Erythrocyte distribution width (RBC) [Ratio] 17.0 % High 11.5-15.0 [facility] Comment on above: Order Comment: Speci men Type: BLOOD SPECIMENOrdering Facility: [facility] Address: [address] [place] [address] Performed By: #### 5 7021-8 ####[facility] LABCLIA [id number] [place] [address] [place] Hematocrit (Bld) [Volume fraction] 40.7 % Normal 39.0-51.0 [facility] Comment on above: Order Comment: Speci men Type: BLOOD SPECIMENOrdering Facility: [facility] Address: [address] [place] [address] Performed By: #### 5 7021-8 ####[facility] LABCLIA [id number] [place] [address] [place] Hemoglobin (Bld) [Mass/Vol] 12.8 g/dL Low 13.0-17.0 [facility] Comment on above: Order Comment: Speci men Type: BLOOD SPECIMENOrdering Facility: [facility] Address: [address] [place] [address] Performed By: #### 5 7021-8 ####[facility] LABCLIA [id number] [place] [address] [place] Immature granulocytes (Bld) [#/Vol] 10*3/uL Normal <0.10 [facility] Comment on above: Order Comment: Speci men Type: BLOOD SPECIMENOrdering Facility: [facility] Address: [address] [place] [address] Performed By: #### 5 7021-8 ####[facility] LABCLIA [id number] [place] [address] [place] Immature granulocytes/100 WBC (Bld) 0.2 % Normal [facility] Comment on above: Order Comment: Speci men Type: BLOOD SPECIMENOrdering Facility: [facility] Address: [address] [place] [address] Performed By: #### 5 7021-8 ####[facility] LABCLIA [id number] [place] [address] [place] Lymphocytes (Bld) [#/Vol] 0.88 10*3/uL Low 1.00-4.00 [facility] Comment on above: Order Comment: Speci men Type: BLOOD SPECIMENOrdering Facility: [facility] Address: [address] [place] [address] Performed By: #### 5 7021-8 ####[facility] [id number] [place] [address] [place] Lymphocytes/100 WBC (Bld) 15.8 % Normal [facility] Comment on above: Order Comment: Speci men Type: BLOOD SPECIMENOrdering Facility: [facility] Address: [address] [place] [address] Performed By: #### 5 7021-8 ####[facility] [id number] [place] [address] [place] MCH (RBC) [Entitic mass] 28.2 pg Normal 26.0-34.0 [facility] Comment on above: Order Comment: Speci men Type: BLOOD SPECIMENOrdering Facility: [facility] Address: [address] [place] [address] Performed By: #### 5 7021-8 ####[facility] [id number] [place] [address] [place] MCHC (RBC) [Mass/Vol] 31.4 g/dL Normal 30.5-36.0 [facility] Comment on above: Order Comment: Speci men Type: BLOOD SPECIMENOrdering Facility: [facility] Address: [address] [place] [address] Performed By: #### 5 7021-8 ####[facility] [id number] [place] [address] [place] MCV (RBC) [Entitic vol] 89.6 fL Normal 80.0-100.0 [facility] Comment on above: Order Comment: Speci men Type: BLOOD SPECIMENOrdering Facility: [facility] Address: [address] [place] [address] Performed By: #### 5 7021-8 ####[facility] LABCLIA [id number] [place] [address] [place] Monocytes (Bld) [#/Vol] 0.62 10*3/uL Normal <0.87 [facility] Comment on above: Order Comment: Speci men Type: BLOOD SPECIMENOrdering Facility: [facility] Address: [address] [place] [address] Performed By: #### 5 7021-8 ####[facility] LABCL[facility] [id number] [place] [address] [place] Monocytes/100 WBC (Bld) 11.1 % Normal [facility] Comment on above: Order Comment: Speci men Type: BLOOD SPECIMENOrdering Facility: [facility] Address: [address] [place] [address] Performed By: #### 5 7021-8 ####[facility] LABCL[facility] [id number] [place] [address] [place] Neutrophils (Bld) [#/Vol] 3.95 10*3/uL Normal 1.45-7.50 [facility] Comment on above: Order Comment: Speci men Type: BLOOD SPECIMENOrdering Facility: [facility] Address: [address] [place] [address] Performed By: #### 5 7021-8 ####[facility] LABCL[facility] [id number] [place] [address] [place] Neutrophils/100 WBC (Bld) 70.8 % Normal [facility] Comment on above: Order Comment: Speci men Type: BLOOD SPECIMENOrdering Facility: [facility] Address: [address] [place] [address] Performed By: #### 5 7021-8 ####[facility] LABCL[facility] [id number] [place] [address] [place] Nucleated RBC (Bld) [#/Vol] 10*3/uL Normal <0.01 [facility] Comment on above: Order Comment: Speci men Type: BLOOD SPECIMENOrdering Facility: [facility] Address: [address] [place] [address] Performed By: #### 5 7021-8 ####[facility] LABIA [id number] [place] [address] [place] Nucleated RBC/100 WBC (Bld) [Ratio] 0.0 /100 WBC Normal [facility] Comment on above: Order Comment: Speci men Type: BLOOD SPECIMENOrdering Facility: [facility] Address: [address] [place] [address] Performed By: #### 5 7021-8 ####[facility] [id number] [place] [address] [place] Platelet mean volume (Bld) [Entitic vol] 10.2 fL Normal 9.0-12.7 [facility] Comment on above: Order Comment: Speci men Type: BLOOD SPECIMENOrdering Facility: [facility] Address: [address] [place] [address] Performed By: #### 5 7021-8 ####[facility] [id number] [place] [address] [place] Platelets (Bld) [#/Vol] 161 10*3/uL Normal 150-400 [facility] Comment on above: Order Comment: Speci men Type: BLOOD SPECIMENOrdering Facility: [facility] Address: [address] [place] [address] Performed By: #### 5 7021-8 ####[facility] [id number] [place] [address] [place] RBC (Bld) [#/Vol] 4.54 10*6/uL Normal 4.20-6.00 [facility] Comment on above: Order Comment: Speci men Type: BLOOD SPECIMENOrdering Facility: [facility] Address: [address] [place] [address] Performed By: #### 5 7021-8 ####[facility] LABCLIA [id number] [address] [address] [place] WBC (Bld) [#/Vol] 5.58 10*3/uL Normal 3.70-11.00 [facility] Comment on above: Order Comment: Speci men Type: BLOOD SPECIMENOrdering Facility: [facility] Address: [address] [place] [address] Performed By: #### 5 7021-8 ####[facility] LABCLIA [id number] [place] [id number] [place] Comprehensive metabolic 2000 panelon 07-21-2024 Albumin [Mass/Vol] 3.6 g/dL Low 3.9-4.9 [facility] Comment on above: Order Comment: Speci men Type: BLOOD SPECIMENOrdering Facility: [facility] Address: [address] [place] [address] Performed By: #### 3 3762-6, [id number], 40442-0, 27468-3 ####[facility]IA [id number] [place] [id number] [place] ALP [Catalytic activity/Vol] 92 U/L Normal 38-113 [facility] Comment on above: Order Comment: Speci men Type: BLOOD SPECIMENOrdering Facility: [facility] Address: [address] [place] [address] Performed By: #### 3 3762-6, [id number], 00098-8, 88236-4 ####[facility]IA [id number] [place] [id number] [place] ALT [Catalytic activity/Vol] 11 U/L Normal 10-54 [facility] Comment on above: Order Comment: Speci men Type: BLOOD SPECIMENOrdering Facility: [facility] Address: [address] [place] [address] Performed By: #### 3 3762-6, [id number], , 88841-4 ####[facility] LABCLIA [id number] [address] [address] [place] Anion gap [Moles/Vol] 12 mmol/L Normal 8-15 [facility] Comment on above: Order Comment: Speci men Type: BLOOD SPECIMENOrdering Facility: [facility] Address: [address] [place] [address] Performed By: #### 3 3762-6, [id number], , 49209-1 ####[facility] LABCLIA [id number] [place] [id number] [place] AST [Catalytic activity/Vol] 21 U/L Normal 14-40 [facility] Comment on above: Order Comment: Speci men Type: BLOOD SPECIMENOrdering Facility: [facility] Address: [address] [place] [address] Performed By: #### 3 3762-6, [id number], , 44059-7 ####[facility] LABCLIA [id number] [place] [id number] [place] Bilirubin [Mass/Vol] 0.9 mg/dL Normal 0.2-1.3 [facility] Comment on above: Order Comment: Speci men Type: BLOOD SPECIMENOrdering Facility: [facility] Address: [address] [place] [address] Performed By: #### 3 3762-6, [id number], , 32748-5 ####[facility] LABCLIA [id number] [address] [address] [place] Calcium [Mass/Vol] 9.0 mg/dL Normal 8.5-10.2 [facility] Comment on above: Order Comment: Speci men Type: BLOOD SPECIMENOrdering Facility: [facility] Address: [address] [place] [address] Performed By: #### 3 3762-6, [id number], , ####[facility] LABCLIA [id number] [address] [address] [place] Chloride [Moles/Vol] 100 mmol/L Normal 98-107 [facility] Comment on above: Order Comment: Speci men Type: BLOOD SPECIMENOrdering Facility: [facility] Address: [address] [place] [address] Performed By: #### 3 3762-6, [id number], , ####[facility] LABCLIA [id number] [address] [address] [place] CO2 [Moles/Vol] 25 mmol/L Normal 22-30 [facility] Comment on above: Order Comment: Speci men Type: BLOOD SPECIMENOrdering Facility: [facility] Address: [address] [place] [address] Performed By: #### 3 3762-6, [id number], , ####[facility]CL[facility] [id number] [address] [address] [place] Creatinine [Mass/Vol] 2.32 mg/dL High 0.73-1.22 [facility] Comment on above: Order Comment: Speci men Type: BLOOD SPECIMENOrdering Facility: [facility] Address: [address] [place] [address] Performed By: #### 3 3762-6, [id number], , ####[facility]CLIA [id number] [address] [address] [place] Creatinine and Glomerular filtration rate.predicted panel (S/P/Bld) 27 mL/min/1.73m??? Low >=60 [facility] Comment on above: Order Comment: Speci men Type: BLOOD SPECIMENOrdering Facility: [facility] Address: [address] [place] [address] Result Comment: Etta mated Glomerular Filtration Rate [...] actual GFR. Performed By: #### 3 3762-6, [id number], , ####[facility]CL[facility] [id number] [address] [address] [place] Glucose [Mass/Vol] 86 mg/dL Normal 74-99 [facility] Comment on above: Order Comment: Dylan olvera Type: BLOOD SPECIMENOrdering Facility: [facility] Address: [address] [place] [address] Result Comment: The [place] Diabetes Association (ADA) provides guidance for cutoff [...] Standards of Medical Care in Diabetes 2016, [place] [employer]. Diabetes Care. 2016.39(Suppl 1). Performed By: #### 3 3762-6, [id number], , ####[facility] LABIA [id number] [address] [address] [place] Potassium [Moles/Vol] 3.6 mmol/L Low 3.7-5.1 [facility] Comment on above: Order Comment: Dylan olvera Type: BLOOD SPECIMENOrdering Facility: [facility] Address: [address] [place] [address] Performed By: #### 3 3762-6, [id number], , ####[facility] LABCLIA [id number] [address] [address] [place] Protein [Mass/Vol] 6.5 g/dL Normal 6.3-8.0 [facility] Comment on above: Order Comment: Speci men Type: BLOOD SPECIMENOrdering Facility: [facility] Address: [address] [place], [place] [address] Performed By: #### 3 3762-6, [id number], , ####[facility] LABIA [id number] [address] [address] [place] Sodium [Moles/Vol] 137 mmol/L Normal 136-144 [facility] Comment on above: Order Comment: Speci men Type: BLOOD SPECIMENOrdering Facility: [facility] Address: [address] [place] [address] Performed By: #### 3 3762-6, [id number], , ####[facility] LABIA [id number] [address] [address] [place] Urea nitrogen [Mass/Vol] 40 mg/dL High 9-24 [facility] Comment on above: Order Comment: Speci men Type: BLOOD SPECIMENOrdering Facility: [facility] Address: [address] [place], [place] [address] Performed By: #### 3 3762-6, [id number], , ####[facility] LABIA [id number] [address] [address] [place] IUO90ds 07-21-2024 ECG01 Normal [facility] ED NOTEon 07-21-2024 ED NOTE HNO ID: [id number] Author: AMY KIM RN Service: Emergency Medicine Author Type: Registered Nurse Type: ED Notes Filed: 07/21/2024 21:41 Note Text: Report called to Inocente Crenshaw received report Normal [facility] ED PROV NOTEon 07-21-2024 ED PROV NOTE Normal [facility] ED Triage Noteon 07-21-2024 ED Triage Note Normal [facility] HIGH SENSITIVITY TROPONIN T (INITIAL)on 07-21-2024 Troponin T.cardiac High sensitivity method [Mass/Vol] 65 ng/L High <12 [facility] Comment on above: Order Comment: Speci men Type: BLOOD SPECIMENOrdering Facility: [facility] Address: [address] [place] [address] Performed By: #### 3 3762-6, [id number], 65288-2, 33319-6 ####[facility] LABIA [id number] [place] [address] [place] HIGH SENSITIVITY TROPONIN T (SECOND)on 07-21-2024 Troponin T.cardiac High sensitivity method [Mass/Vol] 42 ng/L High <12 [facility] Comment on above: Order Comment: Speci men Type: BLOOD SPECIMENOrdering Facility: [facility] Address: [address] [place] [address] Performed By: #### L [id number] ####[facility] LABIA [id number] [place] [address] [place] HIGH SENSITIVITY TROPONIN T (THIRD) 3 HRS AFTER INITIALon 07-21-2024 Troponin T.cardiac High sensitivity method [Mass/Vol] 47 ng/L High <12 [facility] Comment on above: Order Comment: Speci men Type: BLOOD SPECIMENOrdering Facility: [facility] Address: [address] [place] [address] Performed By: #### L [id number] ####[facility] LABIA [id number] [place] [address] [place] HISTORY PHYSICALon HISTORY PHYSICAL Normal [facility] Magnesium SerPl-mCncon 07-21 Magnesium [Mass/Vol] 2.5 mg/dL High 1.7-2.3 [facility] Comment on above: Order Comment: Speci men Type: BLOOD SPECIMENOrdering Facility: [facility] Address: [facility] [place] [address] Performed By: #### 3 3762-6, [id number], , ####[facility] LABCLIA [id number] [place] [address] [place] NT[facility]BNP [facility] Natriuretic peptide.B prohormone N-Terminal [Mass/Vol] 73564 pg/mL High <450 [facility] Comment on above: Order Comment: Speci men Type: BLOOD SPECIMENOrdering Facility: [facility] Address: [address] [place] [address] Performed By: #### 3 3762-6, [id number], , ####[facility] LABCLIA [id number] [place] [address] [place] XR CHEST 2V FRONTAL/LATon XR CHEST 2V FRONTAL/LAT Normal [facility] CNPNon 06-02-2024 CNPN Normal [facility] ANES POSTPROC EVALon 024 ANES POSTPROC EVAL Normal [facility] CNPNon 05-20-2024 CNPN Normal [facility] CASE MANAGEMon 05-16-2024 CASE MANAGEM Normal [facility] CBC panel Auto (Bld)on 05-16 Erythrocyte distribution width (RBC) [Ratio] 19.3 % High 11.5-15.0 [facility] Comment on above: Order Comment: Speci men Type: BLOOD SPECIMENOrdering Facility: [facility] Address: [address] [place] [address] Performed By: #### 5 8410-2 ####[facility] LABCLIA [id number] [place] [address] [place] Hematocrit (Bld) [Volume fraction] 31.8 % Low 39.0-51.0 [facility] Comment on above: Order Comment: Speci men Type: BLOOD SPECIMENOrdering Facility: [facility] Address: [address] [place] [address] Performed By: #### 5 8410-2 ####[facility] LABCLIA [id number] [place] [address] [place] Hemoglobin (Bld) [Mass/Vol] 9.4 g/dL Low 13.0-17.0 [facility] Comment on above: Order Comment: Speci men Type: BLOOD SPECIMENOrdering Facility: [facility] Address: [address] [place] [address] Performed By: #### 5 8410-2 ####[facility] LABCLIA [id number] [place] [address] [place] MCH (RBC) [Entitic mass] 30.8 pg Normal 26.0-34.0 [facility] Comment on above: Order Comment: Speci men Type: BLOOD SPECIMENOrdering Facility: [facility] Address: [address] [place] [address] Performed By: #### 5 8410-2 ####[facility] LABCLIA [id number] [place] [address] [place] MCHC (RBC) [Mass/Vol] 29.6 g/dL Low 30.5-36.0 [facility] Comment on above: Order Comment: Speci men Type: BLOOD SPECIMENOrdering Facility: [facility] Address: [address] [place] [address] Performed By: #### 5 8410-2 ####[facility] LABCLIA [id number] [place] [address] [place] MCV (RBC) [Entitic vol] 104.3 fL High 80.0-100.0 [facility] Comment on above: Order Comment: Speci men Type: BLOOD SPECIMENOrdering Facility: [facility] Address: [address] [place] [address] Performed By: #### 5 8410-2 ####[facility] LABCLIA [id number] [place] [address] [place] Nucleated RBC (Bld) [#/Vol] 10*3/uL Normal <0.01 [facility] Comment on above: Order Comment: Speci men Type: BLOOD SPECIMENOrdering Facility: [facility] Address: [address] [place] [address] Performed By: #### 5 8410-2 ####[facility] LABIA [id number] [place] [address] [place] Platelet mean volume (Bld) [Entitic vol] 10.8 fL Normal 9.0-12.7 [facility] Comment on above: Order Comment: Speci men Type: BLOOD SPECIMENOrdering Facility: [facility] Address: [address] [place] [address] Performed By: #### 5 8410-2 ####[facility] LABIA [id number] [place] [address] [place] Platelets (Bld) [#/Vol] 158 10*3/uL Normal 150-400 [facility] Comment on above: Order Comment: Speci men Type: BLOOD SPECIMENOrdering Facility: [facility] Address: [address] [place] [address] Performed By: #### 5 8410-2 ####[facility] LABIA [id number] [place] [address] [place] RBC (Bld) [#/Vol] 3.05 10*6/uL Low 4.20-6.00 [facility] Comment on above: Order Comment: Speci men Type: BLOOD SPECIMENOrdering Facility: [facility] Address: [address] [place] [address] Performed By: #### 5 8410-2 ####[facility] LABIA [id number] [place] [address] [place] WBC (Bld) [#/Vol] 4.48 10*3/uL Normal 3.70-11.00 [facility] Comment on above: Order Comment: Speci men Type: BLOOD SPECIMENOrdering Facility: [facility] Address: [address] [place] [address] Performed By: #### 5 8410-2 ####[facility] LABCLIA [id number] [place] [address] [place] CNDSon 05-16-2024 CNDS Normal [facility] Renal function 2000 panelon 05-16-2024 Albumin [Mass/Vol] 3.4 g/dL Low 3.9-4.9 [facility] Comment on above: Order Comment: Speci men Type: BLOOD SPECIMENOrdering Facility: [facility] Address: [address] [place] [address] Performed By: #### 2 4362-6 ####[facility] LABCLIA [id number] [place] [address] [place] Anion gap [Moles/Vol] 9 mmol/L Normal 8-15 [facility] Comment on above: Order Comment: Speci men Type: BLOOD SPECIMENOrdering Facility: [facility] Address: [address] [place] [address] Performed By: #### 2 4362-6 ####[facility] LABCLIA [id number] [place] [address] [place] Calcium [Mass/Vol] 9.0 mg/dL Normal 8.5-10.2 [facility] Comment on above: Order Comment: Speci men Type: BLOOD SPECIMENOrdering Facility: [facility] Address: [address] [place] [address] Performed By: #### 2 4362-6 ####[facility] LABCLIA [id number] [place] [address] [place] Chloride [Moles/Vol] 105 mmol/L Normal 98-107 [facility] Comment on above: Order Comment: Speci men Type: BLOOD SPECIMENOrdering Facility: [facility] Address: [address] [place] [address] Performed By: #### 2 4362-6 ####[facility] LABIA [id number] [place] [address] [place] CO2 [Moles/Vol] 25 mmol/L Normal 22-30 [facility] Comment on above: Order Comment: Speci men Type: BLOOD SPECIMENOrdering Facility: [facility] Address: [address] [place] [address] Performed By: #### 2 4362-6 ####[facility] LABIA [id number] [address] [place] Creatinine [Mass/Vol] 2.06 mg/dL High 0.73-1.22 [facility] Comment on above: Order Comment: Speci men Type: BLOOD SPECIMENOrdering Facility: [facility] Address: [address] [place] [address] Performed By: #### 2 4362-6 ####[facility] LABIA [id number] [address] Creatinine and Glomerular filtration rate.predicted panel (S/P/Bld) 32 mL/min/1.73m??? Low >=60 [facility] Comment on above: Order Comment: Speci men Type: BLOOD SPECIMENOrdering Facility: [facility] Address: [address] [place] [address] Result Comment: Etta mated Glomerular Filtration Rate [...] actual GFR. Performed By: #### 2 4362-6 ####[facility] LABIA [id number] [place] [address] [place] Glucose [Mass/Vol] 100 mg/dL High 74-99 [facility] Comment on above: Order Comment: Speci men Type: BLOOD SPECIMENOrdering Facility: [facility] Address: [address] [place] [address] Result Comment: The [place] [employer] (ADA) provides guidance for cutoff [...] Standards of Medical Care in Diabetes 2016, [place] [employer]. Diabetes Care. 2016.39(Suppl 1). Performed By: #### 2 4362-6 ####[facility] LABCLIA [id number] [place] [address] [place] Phosphate [Mass/Vol] 2.4 mg/dL Low 2.7-4.8 [facility] Comment on above: Order Comment: Rozi may Type: BLOOD SPECIMENOrdering Facility: [facility] Address: [address] [place] [address] Performed By: #### 2 4362-6 ####[facility] LABIA [id number] [place] [address] [place] Potassium [Moles/Vol] 3.9 mmol/L Normal 3.7-5.1 [facility] Comment on above: Order Comment: Rozi men Type: BLOOD SPECIMENOrdering Facility: [facility] Address: [address] [place] [address] Performed By: #### 2 4362-6 ####[facility] LABCLIA [id number] [place] [address] [place] Sodium [Moles/Vol] 139 mmol/L Normal 136-144 [facility] Comment on above: Order Comment: Speci men Type: BLOOD SPECIMENOrdering Facility: [facility] Address: [address] [place] [address] Performed By: #### 2 4362-6 ####[facility] LABCLIA [id number] [address] [address] [place] Urea nitrogen [Mass/Vol] 23 mg/dL Normal 9-24 [facility] Comment on above: Order Comment: Speci men Type: BLOOD SPECIMENOrdering Facility: [facility] Address: [address] [place] [address] Performed By: #### 2 4362-6 ####[facility] LABCLIA [id number] [place] [address] [place] CASE MANAGEMon 05-15-2024 CASE MANAGEM Normal [facility] CASE MANAGEM Normal [facility] NUTRITIONon 05-15-2024 NUTRITION Normal [facility] PT EDon 05-15-2024 PT ED Normal [facility] Renal function 2000 panelon 05-15-2024 Albumin [Mass/Vol] 3.2 g/dL Low 3.9-4.9 [facility] Comment on above: Order Comment: Speci men Type: BLOOD SPECIMENOrdering Facility: [facility] Address: [address] [place] [address] Performed By: #### 2 4362-6 ####[facility] LABCLIA [id number] [place] [address] [place] Anion gap [Moles/Vol] 9 mmol/L Normal 8-15 [facility] Comment on above: Order Comment: Speci men Type: BLOOD SPECIMENOrdering Facility: [facility] Address: [address] [place] [address] Performed By: #### 2 4362-6 ####[facility] LABCLIA [id number] [place] [address] [place] Calcium [Mass/Vol] 8.7 mg/dL Normal 8.5-10.2 [facility] Comment on above: Order Comment: Speci men Type: BLOOD SPECIMENOrdering Facility: [facility] Address: [address] [place] [address] Performed By: #### 2 4362-6 ####[facility] LABCLIA [id number] [place] [address] [place] Chloride [Moles/Vol] 107 mmol/L Normal 98-107 [facility] Comment on above: Order Comment: Speci men Type: BLOOD SPECIMENOrdering Facility: [facility] Address: [address] [place] [address] Performed By: #### 2 4362-6 ####[facility] LABCLIA [id number] [place] [address] [place] CO2 [Moles/Vol] 24 mmol/L Normal 22-30 [facility] Comment on above: Order Comment: Speci men Type: BLOOD SPECIMENOrdering Facility: [facility] Address: [address] [place] [address] Performed By: #### 2 4362-6 ####[facility]CL[facility] [id number] [place] [address] [place] Creatinine [Mass/Vol] 2.26 mg/dL High 0.73-1.22 [facility] Comment on above: Order Comment: Speci men Type: BLOOD SPECIMENOrdering Facility: [facility] Address: [address] [place] [address] Performed By: #### 2 4362-6 ####[facility] LABCLIA [id number] [place] [address] [place] Creatinine and Glomerular filtration rate.predicted panel (S/P/Bld) 28 mL/min/1.73m??? Low >=60 [facility] Comment on above: Order Comment: Speci men Type: BLOOD SPECIMENOrdering Facility: [facility] Address: [address] [place] [address] Result Comment: Etta mated Glomerular Filtration Rate [...] actual GFR. Performed By: #### 2 4362-6 ####[facility] LABCLIA [id number] [place] [address] [place] Glucose [Mass/Vol] 120 mg/dL High 74-99 [facility] Comment on above: Order Comment: Dylan olvera Type: BLOOD SPECIMENOrdering Facility: [facility] Address: [address] [place] [address] Result Comment: The [place] Diabetes Association (ADA) provides guidance for cutoff [...] Standards of Medical Care in Diabetes 2016, [place] [employer]. Diabetes Care. 2016.39(Suppl 1). Performed By: #### 2 4362-6 ####[facility] LABCLIA [id number] [place] [address] [place] Phosphate [Mass/Vol] 2.8 mg/dL Normal 2.7-4.8 [facility] Comment on above: Order Comment: Dylan olvera Type: BLOOD SPECIMENOrdering Facility: [facility] Address: [address] [place] [address] Performed By: #### 2 4362-6 ####[facility] LABCLIA [id number] [place] [address] [place] Potassium [Moles/Vol] 3.8 mmol/L Normal 3.7-5.1 [facility] Comment on above: Order Comment: Speci men Type: BLOOD SPECIMENOrdering Facility: [facility] Address: [address] [place] [address] Performed By: #### 2 4362-6 ####[facility]CL[facility] [id number] [place] [address] [place] Sodium [Moles/Vol] 140 mmol/L Normal 136-144 [facility] Comment on above: Order Comment: Speci men Type: BLOOD SPECIMENOrdering Facility: [facility] Address: [address] [place] [address] Performed By: #### 2 4362-6 ####[facility]CL[facility] [id number] [place] [address] [place] Urea nitrogen [Mass/Vol] 24 mg/dL Normal 9-24 [facility] Comment on above: Order Comment: Speci men Type: BLOOD SPECIMENOrdering Facility: [facility] Address: [address] [place] [address] Performed By: #### 2 4362-6 ####[facility]CL[facility] [id number] [place] [address] [place] THERAPY NTon 05-15-2024 THERAPY NT Normal [facility] ALLIED HEALTHon 05-14-2024 ALLIED HEALTH Normal [facility] ANES PRE-OPon 05-14-2024 ANES PRE-OP Normal [facility] BRIEF OP NOTon 05-14-2024 BRIEF OP NOT Normal [facility] CBC panel Auto (Bld)on 05-14 Erythrocyte distribution width (RBC) [Ratio] 19.9 % High 11.5-15.0 [facility] Comment on above: Order Comment: Speci men Type: BLOOD SPECIMENOrdering Facility: [facility] Address: [address] [place] [address] Performed By: #### 5 8410-2 ####[facility] LABIA [id number] [place] [address] [place] Hematocrit (Bld) [Volume fraction] 29.2 % Low 39.0-51.0 [facility] Comment on above: Order Comment: Speci men Type: BLOOD SPECIMENOrdering Facility: [facility] Address: [address] [place] [address] Performed By: #### 5 8410-2 ####[facility] LABIA [id number] [place] [address] [place] Hemoglobin (Bld) [Mass/Vol] 8.6 g/dL Low 13.0-17.0 [facility] Comment on above: Order Comment: Speci men Type: BLOOD SPECIMENOrdering Facility: [facility] Address: [address] [place] [address] Performed By: #### 5 8410-2 ####[facility] LABIA [id number] [place] [address] [place] MCH (RBC) [Entitic mass] 29.7 pg Normal 26.0-34.0 [facility] Comment on above: Order Comment: Speci men Type: BLOOD SPECIMENOrdering Facility: [facility] Address: [address] [place] [address] Performed By: #### 5 8410-2 ####[facility]IA [id number] [place] [address] [place] MCHC (RBC) [Mass/Vol] 29.5 g/dL Low 30.5-36.0 [facility] [facility] Comment on above: Order Comment: Speci men Type: BLOOD SPECIMENOrdering Facility: [facility] Address: [address] [place] [address] Performed By: #### 5 8410-2 ####[facility] [id number] [place] [address] [address] [place] MCV (RBC) [Entitic vol] 100.7 fL High 80.0-100.0 [facility] Comment on above: Order Comment: Speci men Type: BLOOD SPECIMENOrdering Facility: [facility] Address: [address] [place] [address] Performed By: #### 5 8410-2 ####[facility] LABCLIA [id number] [place] [address] [place] Nucleated RBC (Bld) [#/Vol] 10*3/uL Normal <0.01 [facility] Comment on above: Order Comment: Speci men Type: BLOOD SPECIMENOrdering Facility: [facility] Address: [address] [place] [address] Performed By: #### 5 8410-2 ####[facility] [id number] [place] [address] [place] Platelet mean volume (Bld) [Entitic vol] 10.3 fL Normal 9.0-12.7 [facility] Comment on above: Order Comment: Speci men Type: BLOOD SPECIMENOrdering Facility: [facility] Address: [address] [place] [address] Performed By: #### 5 8410-2 ####[facility] [id number] [place] [address] [place] Platelets (Bld) [#/Vol] 158 10*3/uL Normal 150-400 [facility] Comment on above: Order Comment: Speci men Type: BLOOD SPECIMENOrdering Facility: [facility] Address: [address] [place] [address] Performed By: #### 5 8410-2 ####[facility] LABCLIA [id number] [place] [address] [place] RBC (Bld) [#/Vol] 2.90 10*6/uL Low 4.20-6.00 [facility] [place] Comment on above: Order Comment: Speci men Type: BLOOD SPECIMENOrdering Facility: [facility] Address: [address] [place] [address] Performed By: #### 5 8410-2 ####[facility] [id number] [place] [address] [place] WBC (Bld) [#/Vol] 4.27 10*3/uL Normal 3.70-11.00 [facility] [place] Comment on above: Order Comment: Speci men Type: BLOOD SPECIMENOrdering Facility: [facility] Address: [address] [place] [address] Performed By: #### 5 8410-2 ####[facility] [id number] [place] [address] [place] Magnesium SerPl-mCncon 05-14 Magnesium [Mass/Vol] 2.1 mg/dL Normal 1.7-2.3 [facility] Comment on above: Order Comment: Speci men Type: BLOOD SPECIMENOrdering Facility: [facility] Address: [address] [place] [address] Performed By: #### 1 9123-9, 84911-7 ####[facility] [id number] [place] [address] [place] PTT, ANTICOAGULANT THERAPYon 05-14-2024 aPTT Coag (PPP) [Time] 37.6 s High 23.0-32.4 [facility] Comment on above: Order Comment: Speci men Type: BLOOD SPECIMENOrdering Facility: [facility] Address: [address] [place] [address] Performed By: #### P TTAC ####[facility] [id number] [place] [address] [place] Renal function 2000 panelon 05-14-2024 Albumin [Mass/Vol] 3.3 g/dL Low 3.9-4.9 [facility] Comment on above: Order Comment: Speci men Type: BLOOD SPECIMENOrdering Facility: [facility] Address: [address] [id number] Performed By: #### 1 9123-9, 76639-0 ####[facility] LABCLIA [id number] [address] [address] [place] Anion gap [Moles/Vol] 12 mmol/L Normal 8-15 [facility] Comment on above: Order Comment: Speci men Type: BLOOD SPECIMENOrdering Facility: [facility] Address: [address] [place], [place] [address] Performed By: #### 1 9123-9, 87989-3 ####[facility]CLIA [id number] [place] [address] [place] Calcium [Mass/Vol] 9.0 mg/dL Normal 8.5-10.2 [facility] Comment on above: Order Comment: Speci men Type: BLOOD SPECIMENOrdering Facility: [facility] Address: [address] [place], [place] [address] Performed By: #### 1 9123-9, 39176-1 ####[facility]CL[facility] [id number] [place] [address] [place] Chloride [Moles/Vol] 104 mmol/L Normal 98-107 [facility] Comment on above: Order Comment: Speci men Type: BLOOD SPECIMENOrdering Facility: [facility] Address: [address] [place], [place] [address] Performed By: #### 1 9123-9, 49402-9 ####[facility]CL[facility] [id number] [place] [id number] [place] CO2 [Moles/Vol] 24 mmol/L Normal 22-30 [facility] Comment on above: Order Comment: Speci men Type: BLOOD SPECIMENOrdering Facility: [facility] Address: [address] [place], [place] [address] Performed By: #### 1 9123-9, 71748-0 ####[facility] [id number] [address] [address] [place] Creatinine [Mass/Vol] 2.14 mg/dL High 0.73-1.22 [facility] Comment on above: Order Comment: Dylan olvera Type: BLOOD SPECIMENOrdering Facility: [facility] Address: [address] [place] [address] Performed By: #### 1 9123-9, 00779-1 ####[facility] [id number] [place] [address] [place] Creatinine and Glomerular filtration rate.predicted panel (S/P/Bld) 30 mL/min/1.73m??? Low >=60 [facility] Comment on above: Order Comment: Dylan olvera Type: BLOOD SPECIMENOrdering Facility: [facility] Address: [address] [place] [address] Result Comment: Etta mated Glomerular Filtration Rate [...] actual GFR. Performed By: #### 1 9123-9, 90383-7 ####[facility] [id number] [place] [address] [place] Glucose [Mass/Vol] 84 mg/dL Normal 74-99 [facility] Comment on above: Order Comment: Dylan olvera Type: BLOOD SPECIMENOrdering Facility: [facility] Address: [address] [place] [address] Result Comment: The [place] [employer] (ADA) provides guidance for cutoff [...] Standards of Medical Care in Diabetes 2016, [place] [employer]. Diabetes Care. 2016.39(Suppl 1). Performed By: #### 1 9123-9, 97515-2 ####[facility] [id number] [place] [address] [place] Phosphate [Mass/Vol] 2.7 mg/dL Normal 2.7-4.8 [facility] Comment on above: Order Comment: Dylan olvera Type: BLOOD SPECIMENOrdering Facility: [facility] Address: [address] [place] [address] Performed By: #### 1 9123-9, 75548-6 ####[facility]CLIA [id number] [place] [address] [place] Potassium [Moles/Vol] 3.9 mmol/L Normal 3.7-5.1 [facility] Comment on above: Order Comment: Dylan olvera Type: BLOOD SPECIMENOrdering Facility: [facility] Address: [address] [place] [address] Performed By: #### 1 9123-9, 30546-8 ####[facility]CLIA [id number] [place] [address] [place] Sodium [Moles/Vol] 140 mmol/L Normal 136-144 [facility] Comment on above: Order Comment: Rozi men Type: BLOOD SPECIMENOrdering Facility: [facility] Address: [address] [place] [address] Performed By: #### 1 9123-9, 25555-3 ####[facility]CLIA [id number] [address] [address] [place] Urea nitrogen [Mass/Vol] 24 mg/dL Normal 9-24 [facility] Comment on above: Order Comment: Speci men Type: BLOOD SPECIMENOrdering Facility: [facility] Address: [address] [place] [address] Performed By: #### 1 9123-9, 08360-2 ####[facility]CLIA [id number] [address] [address] [place] THERAPY NTon 05-14-2024 THERAPY NT Normal [facility] TYPE + SCREENon 05-14-2024 ABO O Normal [facility] Comment on above: Order Comment: Speci men Type: BLOOD SPECIMENOrdering Facility: [facility] Address: [address] [place] [address] Performed By: #### T SCR ####[facility] BANKCLIA [id number] [place] [id number] [place] HISTORICAL AB SCR STATUS Negative Normal [facility] Comment on above: Order Comment: Speci men Type: BLOOD SPECIMENOrdering Facility: [facility] Address: [address] [place], [place] [address] Performed By: #### T SCR ####[facility] BANKCLIA [id number] [place] [id number] [place] Rh Nom (Bld) Positive Normal [facility] Comment on above: Order Comment: Speci men Type: BLOOD SPECIMENOrdering Facility: [facility] Address: [address] [place], [place] [address] Performed By: #### T SCR ####[facility] BANKCLIA [id number] [address] [address] [place] TYPE AND SCREEN EXPIRATION 05/17/2024 23:59 Normal [facility] Comment on above: Order Comment: Speci men Type: BLOOD SPECIMENOrdering Facility: [facility] Address: [address] [place] [address] Performed By: #### T SCR ####[facility]LO[facility] BANKCLIA [id number] [address] [address] [place] Upper GI endoscopyon 024 Upper GI endoscopy Normal [facility] aPTT PPPon 05-14-2024 aPTT Coag (PPP) [Time] 25.4 s Normal 23.0-32.4 [facility] Comment on above: Order Comment: Speci men Type: BLOOD SPECIMENOrdering Facility: [facility] Address: [address] [place] [address] Performed By: #### 1 4979-9 ####[facility]CL[facility] [id number] [place] [address] [place] CBC panel Auto (Bld)on 05-13 Erythrocyte distribution width (RBC) [Ratio] 20.2 % High 11.5-15.0 [facility] Comment on above: Order Comment: Speci men Type: BLOOD SPECIMENOrdering Facility: [facility] Address: [address] [place] [address] Performed By: #### 5 8410-2 ####[facility] [id number] [place] [address] [place] Hematocrit (Bld) [Volume fraction] 28.2 % Low 39.0-51.0 [facility] Comment on above: Order Comment: Speci men Type: BLOOD SPECIMENOrdering Facility: [facility] Address: [address] [place] [address] Performed By: #### 5 8410-2 ####[facility]CL[facility] [id number] [place] [address] [place] Hemoglobin (Bld) [Mass/Vol] 8.3 g/dL Low 13.0-17.0 [facility] Comment on above: Order Comment: Speci men Type: BLOOD SPECIMENOrdering Facility: [facility] Address: [address] [place] [address] Performed By: #### 5 8410-2 ####[facility]CL[facility] [id number] [place] [address] [place] MCH (RBC) [Entitic mass] 29.6 pg Normal 26.0-34.0 [facility] Comment on above: Order Comment: Speci men Type: BLOOD SPECIMENOrdering Facility: [facility] Address: [address] [place] [address] Performed By: #### 5 8410-2 ####[facility]CL[facility] [id number] [place] [address] [place] MCHC (RBC) [Mass/Vol] 29.4 g/dL Low 30.5-36.0 [facility] Comment on above: Order Comment: Speci men Type: BLOOD SPECIMENOrdering Facility: [facility] Address: [address] [place] [address] Performed By: #### 5 8410-2 ####[facility]CL[facility] [id number] [place] [address] [place] MCV (RBC) [Entitic vol] 100.7 fL High 80.0-100.0 [facility] Comment on above: Order Comment: Speci men Type: BLOOD SPECIMENOrdering Facility: [facility] Address: [address] [place] [address] Performed By: #### 5 8410-2 ####[facility] [id number] [place] [address] [place] Nucleated RBC (Bld) [#/Vol] 10*3/uL Normal <0.01 [facility] Comment on above: Order Comment: Speci men Type: BLOOD SPECIMENOrdering Facility: [facility] Address: [address] [place] [address] Performed By: #### 5 8410-2 ####[facility] [id number] [place] [address] [place] Platelet mean volume (Bld) [Entitic vol] 10.4 fL Normal 9.0-12.7 [facility] Comment on above: Order Comment: Speci men Type: BLOOD SPECIMENOrdering Facility: [facility] Address: [address] [place] [address] Performed By: #### 5 8410-2 ####[facility] [id number] [place] [address] [place] Platelets (Bld) [#/Vol] 169 10*3/uL Normal 150-400 [facility] Comment on above: Order Comment: Speci men Type: BLOOD SPECIMENOrdering Facility: [facility] Address: [address] [place] [address] Performed By: #### 5 8410-2 ####[facility] [id number] [place] [address] [place] RBC (Bld) [#/Vol] 2.80 10*6/uL Low 4.20-6.00 [facility] [place] Comment on above: Order Comment: Speci men Type: BLOOD SPECIMENOrdering Facility: [facility] Address: [address] [place] [address] Performed By: #### 5 8410-2 ####[facility] [id number] [place] [address] [place] WBC (Bld) [#/Vol] 4.70 10*3/uL Normal 3.70-11.00 [facility] [place] Comment on above: Order Comment: Speci men Type: BLOOD SPECIMENOrdering Facility: [facility] Address: [address] [place] [address] Performed By: #### 5 8410-2 ####[facility] [id number] [place] [address] [place] Magnesium SerPl-mCncon 05-13 Magnesium [Mass/Vol] 2.2 mg/dL Normal 1.7-2.3 [facility] Comment on above: Order Comment: Speci men Type: BLOOD SPECIMENOrdering Facility: [facility] Address: [address] [place] [address] Performed By: #### 2 4362-6, 20317-4 ####[facility] [id number] [place] [address] [place] PTT, ANTICOAGULANT THERAPYon 05-13-2024 aPTT Coag (PPP) [Time] 49.3 s High 23.0-32.4 [facility] Comment on above: Order Comment: Speci men Type: BLOOD SPECIMENOrdering Facility: [facility] Address: [address] [place] [address] Performed By: #### P TTAC ####[facility] [id number] [place] [address] [place] aPTT Coag (PPP) [Time] 62.2 s High 23.0-32.4 [facility] Comment on above: Order Comment: Speci men Type: BLOOD SPECIMENOrdering Facility: [facility] Address: [address] [place] [address] Performed By: #### P TTAC ####[facility] [id number] [place] [address] [place] aPTT Coag (PPP) [Time] 76.5 s High 23.0-32.4 [facility] Comment on above: Order Comment: Speci men Type: BLOOD SPECIMENOrdering Facility: [facility] Address: [address] [place] [address] Performed By: #### P TTAC ####[facility] [id number] [place] [id number] [place] Renal function 2000 panelon 05-13-2024 Albumin [Mass/Vol] 3.4 g/dL Low 3.9-4.9 [facility] Comment on above: Order Comment: Speci men Type: BLOOD SPECIMENOrdering Facility: [facility] Address: [address] [place] [address] Performed By: #### 2 4362-6, ####[facility]CL[facility] [id number] [address] [address] [place] Anion gap [Moles/Vol] 12 mmol/L Normal 8-15 [facility] Comment on above: Order Comment: Speci men Type: BLOOD SPECIMENOrdering Facility: [facility] Address: [address] [place] [address] Performed By: #### 2 4362-6, ####[facility] [id number] [place] [address] [place] Calcium [Mass/Vol] 8.9 mg/dL Normal 8.5-10.2 [facility] Comment on above: Order Comment: Speci men Type: BLOOD SPECIMENOrdering Facility: [facility] Address: [address] [place] [address] Performed By: #### 2 4362-6, ####[facility] [id number] [place] [address] [place] Chloride [Moles/Vol] 104 mmol/L Normal 98-107 [facility] Comment on above: Order Comment: Speci men Type: BLOOD SPECIMENOrdering Facility: [facility] Address: [address] [place] [address] Performed By: #### 2 4362-6, ####[facility] [id number] [place] [id number] [place] CO2 [Moles/Vol] 24 mmol/L Normal 22-30 [facility] Comment on above: Order Comment: Speci men Type: BLOOD SPECIMENOrdering Facility: [facility] Address: [address] [place], [place] [address] Performed By: #### 2 4362-6, ####[facility] [id number] [place] [id number] [place] Creatinine [Mass/Vol] 2.10 mg/dL High 0.73-1.22 [facility] Comment on above: Order Comment: Dylan olvera Type: BLOOD SPECIMENOrdering Facility: [facility] Address: [address] [place] [address] Performed By: #### 2 4362-6, ####[facility] [id number] [place] [address] [place] Creatinine and Glomerular filtration rate.predicted panel (S/P/Bld) 31 mL/min/1.73m??? Low >=60 [facility] Comment on above: Order Comment: Dylan olvera Type: BLOOD SPECIMENOrdering Facility: [facility] Address: [address] [place] [address] Result Comment: Etta mated Glomerular Filtration Rate [...] reflect actual GFR. Performed By: #### 2 4362-6, ####[facility] [id number] [place] [address] [place] Glucose [Mass/Vol] 105 mg/dL High 74-99 [facility] Comment on above: Order Comment: Dylan olvera Type: BLOOD SPECIMENOrdering Facility: [facility] Address: [address] [place] [address] Result Comment: The [place] [employer] (ADA) provides guidance for cutoff [...] Standards of Medical Care in Diabetes 2016, [place] [employer]. Diabetes Care. 2016.39(Suppl 1). Performed By: #### 2 4362-6, ####[facility] [id number] [address] [address] [place] Phosphate [Mass/Vol] 2.8 mg/dL Normal 2.7-4.8 [facility] Comment on above: Order Comment: Speci men Type: BLOOD SPECIMENOrdering Facility: [facility] Address: [address] [place] [address] Performed By: #### 2 4362-6, ####[facility] [id number] [place] [address] [place] Potassium [Moles/Vol] 3.8 mmol/L Normal 3.7-5.1 [facility] Comment on above: Order Comment: Speci men Type: BLOOD SPECIMENOrdering Facility: [facility] Address: [address] [place], [place] [address] Performed By: #### 2 4362-6, ####[facility] [id number] [place] [id number] [place] Sodium [Moles/Vol] 140 mmol/L Normal 136-144 [facility] Comment on above: Order Comment: Speci men Type: BLOOD SPECIMENOrdering Facility: [facility] Address: [address] [place] [id number] Performed By: #### 2 4362-6, ####[facility] [id number] [address] [address] [place] Urea nitrogen [Mass/Vol] 26 mg/dL High 9-24 [facility] Comment on above: Order Comment: Speci men Type: BLOOD SPECIMENOrdering Facility: [facility] Address: [address] [place] [address] Performed By: #### 2 4362-6, 19536-0 ####[facility] [id number] [place] [address] [place] THERAPY NTon 05-13-2024 THERAPY NT Normal [facility] CBC panel Auto (Bld)on 05-12 Erythrocyte distribution width (RBC) [Ratio] 20.7 % High 11.5-15.0 [facility] Comment on above: Order Comment: Speci men Type: BLOOD SPECIMENOrdering Facility: [facility] Address: [address] [place] [address] Performed By: #### 5 8410-2 ####[facility] [id number] [address] [place] Hematocrit (Bld) [Volume fraction] 28.1 % Low 39.0-51.0 [facility] Comment on above: Order Comment: Speci men Type: BLOOD SPECIMENOrdering Facility: [facility] Address: [address] [place] [address] Performed By: #### 5 8410-2 ####[facility] [id number] [place] [address] [place] Hemoglobin (Bld) [Mass/Vol] 8.0 g/dL Low 13.0-17.0 [facility] Comment on above: Order Comment: Speci men Type: BLOOD SPECIMENOrdering Facility: [facility] Address: [address] [place] [address] Performed By: #### 5 8410-2 ####[facility] [id number] [place] [address] [place] MCH (RBC) [Entitic mass] 29.3 pg Normal 26.0-34.0 [facility] Comment on above: Order Comment: Speci men Type: BLOOD SPECIMENOrdering Facility: [facility] Address: [address] [place] [address] Performed By: #### 5 8410-2 ####[facility] [id number] [place] [address] [place] MCHC (RBC) [Mass/Vol] 28.5 g/dL Low 30.5-36.0 [facility] Comment on above: Order Comment: Speci men Type: BLOOD SPECIMENOrdering Facility: [facility] Address: [address] [place] [address] Performed By: #### 5 8410-2 ####[facility] [id number] [place] [address] [place] MCV (RBC) [Entitic vol] 102.9 fL High 80.0-100.0 [facility] Comment on above: Order Comment: Speci men Type: BLOOD SPECIMENOrdering Facility: [facility] Address: [address] [place] [address] Performed By: #### 5 8410-2 ####[facility] [id number] [place] [address] [place] Nucleated RBC (Bld) [#/Vol] 10*3/uL Normal <0.01 [facility] Comment on above: Order Comment: Speci men Type: BLOOD SPECIMENOrdering Facility: [facility] Address: [address] [place] [address] Performed By: #### 5 8410-2 ####[facility] [id number] [place] [address] [place] Platelet mean volume (Bld) [Entitic vol] 10.6 fL Normal 9.0-12.7 [facility] Comment on above: Order Comment: Speci men Type: BLOOD SPECIMENOrdering Facility: [facility] Address: [address] [place] [address] Performed By: #### 5 8410-2 ####[facility] [id number] [place] [address] [place] Platelets (Bld) [#/Vol] 182 10*3/uL Normal 150-400 [facility] [facility] Comment on above: Order Comment: Speci men Type: BLOOD SPECIMENOrdering Facility: [facility] Address: [address] [place] [address] Performed By: #### 5 8410-2 ####[facility] LABCL[facility] [id number] [place] [address] [place] RBC (Bld) [#/Vol] 2.73 10*6/uL Low 4.20-6.00 [facility] [place] Comment on above: Order Comment: Speci men Type: BLOOD SPECIMENOrdering Facility: [facility] Address: [address] [place] [address] Performed By: #### 5 8410-2 ####[facility]CL[facility] [id number] [place] [address] [place] WBC (Bld) [#/Vol] 4.96 10*3/uL Normal 3.70-11.00 [facility] [place] Comment on above: Order Comment: Speci men Type: BLOOD SPECIMENOrdering Facility: [facility] Address: [address] [place] [address] Performed By: #### 5 8410-2 ####[facility]CL[facility] [id number] [place] [address] [place] PT panel Coag (PPP)on 2023 INR Coag (PPP) [Relative time] 1.3 {INR} Normal 0.9-1.3 [facility] Comment on above: Order Comment: Speci men Type: BLOOD SPECIMENOrdering Facility: [facility] Address: [address] [place] [address] Result Comment: Loulou min K Antagonist (VKA) Therapeutic Range: INR 2 to 3 (Target INR of 2.5)Note: For patients treated with VKA drugs, such as warfarin, the [place] [employer] 2012 Guideline recommends [...] al. Chest 2012, 141:7S-47SNishimura RA, et al. [facility] 2017, 70: 252-289 Performed By: #### P TTAC, 99179-9 ####[facility]CL[facility] [id number] [place] [address] [place] PT Coag (PPP) [Time] 13.5 s High 9.7-13.0 [facility] Comment on above: Order Comment: Speci men Type: BLOOD SPECIMENOrdering Facility: [facility] Address: [address] [place] [address] Performed By: #### P TTAC, 05126-2 ####[facility] LABIA [id number] [place] [address] [place] PTT, ANTICOAGULANT THERAPYon 05-12-2024 aPTT Coag (PPP) [Time] 43.6 s High 23.0-32.4 [facility] Comment on above: Order Comment: Rozi may Type: BLOOD SPECIMENOrdering Facility: [facility] Address: [address] [place] [address] Performed By: #### P TTAC ####[facility] LABIA [id number] [place] [address] [place] aPTT Coag (PPP) [Time] 106.6 s High 23.0-32.4 [facility] Comment on above: Order Comment: Rozi men Type: BLOOD SPECIMENOrdering Facility: [facility] Address: [address] [place] [address] Performed By: #### P TTAC ####[facility] [id number] [place] [address] [place] aPTT Coag (PPP) [Time] 42.0 s High 23.0-32.4 [facility] Comment on above: Order Comment: Speci men Type: BLOOD SPECIMENOrdering Facility: [facility] Address: [address] [place] [address] Performed By: #### P [facility], [address]-9 ####[facility] LABIA [id number] [place] [address] [place] Renal function 2000 panelon 05-12-2024 Albumin [Mass/Vol] 3.2 g/dL Low 3.9-4.9 [facility] Comment on above: Order Comment: Speci men Type: BLOOD SPECIMENOrdering Facility: [facility] Address: [address] [place] [address] Performed By: #### 2 4362-6 ####[facility] LABIA [id number] [place] [address] [place] Anion gap [Moles/Vol] 10 mmol/L Normal 8-15 [facility] Comment on above: Order Comment: Speci men Type: BLOOD SPECIMENOrdering Facility: [facility] Address: [address] [place] [address] Performed By: #### 2 4362-6 ####[facility] LABIA [id number] [place] [address] [place] Calcium [Mass/Vol] 8.6 mg/dL Normal 8.5-10.2 [facility] Comment on above: Order Comment: Speci men Type: BLOOD SPECIMENOrdering Facility: [facility] Address: [address] [place] [address] Performed By: #### 2 4362-6 ####[facility] LABIA [id number] [place] [address] [place] Chloride [Moles/Vol] 106 mmol/L Normal 98-107 [facility] Comment on above: Order Comment: Speci men Type: BLOOD SPECIMENOrdering Facility: [facility] Address: [address] [place] [address] Performed By: #### 2 4362-6 ####[facility]CL[facility] [id number] [place] [address] [place] CO2 [Moles/Vol] 23 mmol/L Normal 22-30 [facility] Comment on above: Order Comment: Speci men Type: BLOOD SPECIMENOrdering Facility: [facility] Address: [address] [place] [address] Performed By: #### 2 4362-6 ####[facility]CL[facility] [id number] [place] [address] [place] Creatinine [Mass/Vol] 2.22 mg/dL High 0.73-1.22 [facility] Comment on above: Order Comment: Speci men Type: BLOOD SPECIMENOrdering Facility: [facility] Address: [address] [place] [address] Performed By: #### 2 4362-6 ####[facility]CL[facility] [id number] [address] [place] Creatinine and Glomerular filtration rate.predicted panel (S/P/Bld) 29 mL/min/1.73m??? Low >=60 [facility] Comment on above: Order Comment: Speci men Type: BLOOD SPECIMENOrdering Facility: [facility] Address: [address] [place] [address] Result Comment: Etta mated Glomerular Filtration Rate [...] actual GFR. Performed By: #### 2 4362-6 ####[facility]CL[facility] [id number] [place] [address] [place] Glucose [Mass/Vol] 118 mg/dL High 74-99 [facility] Comment on above: Order Comment: Speci men Type: BLOOD SPECIMENOrdering Facility: [facility] Address: [address] [place] [address] Result Comment: The [place] [employer] (ADA) provides guidance for cutoff [...] Standards of Medical Care in Diabetes 2016, [place] [employer]. Diabetes Care. 2016.39(Suppl 1). Performed By: #### 2 4362-6 ####[facility] LABIA [id number] [place] [address] [place] Phosphate [Mass/Vol] 2.6 mg/dL Low 2.7-4.8 [facility] Comment on above: Order Comment: Speci men Type: BLOOD SPECIMENOrdering Facility: [facility] Address: [address] [place] [address] Performed By: #### 2 4362-6 ####[facility] LABIA [id number] [place] [address] [place] Potassium [Moles/Vol] 3.9 mmol/L Normal 3.7-5.1 [facility] Comment on above: Order Comment: Speci men Type: BLOOD SPECIMENOrdering Facility: [facility] Address: [address] [place] [address] Performed By: #### 2 4362-6 ####[facility]CL[facility] [id number] [place] [address] [place] Sodium [Moles/Vol] 139 mmol/L Normal 136-144 [facility] Comment on above: Order Comment: Speci men Type: BLOOD SPECIMENOrdering Facility: [facility] Address: [address] [place] [address] Performed By: #### 2 4362-6 ####[facility]CL[facility] [id number] [place] [address] [place] Urea nitrogen [Mass/Vol] 28 mg/dL High 9-24 [facility] Comment on above: Order Comment: Speci men Type: BLOOD SPECIMENOrdering Facility: [facility] Address: [address] [place] [address] Performed By: #### 2 4362-6 ####[facility] LABIA [id number] [place] [address] [place] THERAPY NTon 05-12-2024 THERAPY NT Normal [facility] CASE MGT INIT ASSESon 2023 CASE MGT INIT ASSES Normal [facility] [place] CBC panel Auto (Bld)on 05-11 Erythrocyte distribution width (RBC) [Ratio] 20.9 % High 11.5-15.0 [facility] Comment on above: Order Comment: Speci men Type: BLOOD SPECIMENOrdering Facility: [facility] Address: [address] [place] [address] Performed By: #### 5 8410-2 ####[facility] LABCL[facility] [id number] [place] [address] [place] Hematocrit (Bld) [Volume fraction] 27.6 % Low 39.0-51.0 [facility] Comment on above: Order Comment: Speci men Type: BLOOD SPECIMENOrdering Facility: [facility] Address: [address] [place] [address] Performed By: #### 5 8410-2 ####[facility]CL[facility] [id number] [place] [address] [place] Hemoglobin (Bld) [Mass/Vol] 8.1 g/dL Low 13.0-17.0 [facility] Comment on above: Order Comment: Speci men Type: BLOOD SPECIMENOrdering Facility: [facility] Address: [address] [place] [address] Performed By: #### 5 8410-2 ####[facility] LABCL[facility] [id number] [place] [address] [place] MCH (RBC) [Entitic mass] 29.8 pg Normal 26.0-34.0 [facility] Comment on above: Order Comment: Speci men Type: BLOOD SPECIMENOrdering Facility: [facility] Address: [address] [place] [address] Performed By: #### 5 8410-2 ####[facility] LABCLIA [id number] [place] [address] [place] MCHC (RBC) [Mass/Vol] 29.3 g/dL Low 30.5-36.0 [facility] Comment on above: Order Comment: Speci men Type: BLOOD SPECIMENOrdering Facility: [facility] Address: [address] [place] [address] Performed By: #### 5 8410-2 ####[facility] LABIA [id number] [place] [address] [place] MCV (RBC) [Entitic vol] 101.5 fL High 80.0-100.0 [facility] Comment on above: Order Comment: Speci men Type: BLOOD SPECIMENOrdering Facility: [facility] Address: [address] [place] [address] Performed By: #### 5 8410-2 ####[facility]CL[facility] [id number] [place] [address] [place] Nucleated RBC (Bld) [#/Vol] 10*3/uL Normal <0.01 [facility] Comment on above: Order Comment: Speci men Type: BLOOD SPECIMENOrdering Facility: [facility] Address: [address] [place] [address] Performed By: #### 5 8410-2 ####[facility] LABIA [id number] [place] [address] [place] Platelet mean volume (Bld) [Entitic vol] 10.4 fL Normal 9.0-12.7 [facility] Comment on above: Order Comment: Speci men Type: BLOOD SPECIMENOrdering Facility: [facility] Address: [address] [place] [address] Performed By: #### 5 8410-2 ####[facility] LABIA [id number] [place] [address] [place] Platelets (Bld) [#/Vol] 182 10*3/uL Normal 150-400 [facility] Comment on above: Order Comment: Speci men Type: BLOOD SPECIMENOrdering Facility: [facility] Address: [address] [place] [address] Performed By: #### 5 8410-2 ####[facility] LABIA [id number] [place] [address] [place] RBC (Bld) [#/Vol] 2.72 10*6/uL Low 4.20-6.00 [facility] [place] Comment on above: Order Comment: Speci men Type: BLOOD SPECIMENOrdering Facility: [facility] Address: [address] [place] [address] Performed By: #### 5 8410-2 ####[facility] LABIA [id number] [place] [address] [place] WBC (Bld) [#/Vol] 5.06 10*3/uL Normal 3.70-11.00 [facility] [place] Comment on above: Order Comment: Speci men Type: BLOOD SPECIMENOrdering Facility: [facility] Address: [address] [place] [address] Performed By: #### 5 8410-2 ####[facility] LABIA [id number] [place] [address] [place] NURSING PROGon 05-11-2024 NURSING PROG Normal [facility] PTT, ANTICOAGULANT THERAPYon 05-11-2024 aPTT Coag (PPP) [Time] 55.4 s High 23.0-32.4 [facility] Comment on above: Order Comment: Speci men Type: BLOOD SPECIMENOrdering Facility: [facility] Address: [address] [place] [address] Performed By: #### P TTAC ####[facility] LABIA [id number] [place] [address] [place] aPTT Coag (PPP) [Time] 61.4 s High 23.0-32.4 [facility] Comment on above: Order Comment: Speci men Type: BLOOD SPECIMENOrdering Facility: [facility] Address: [address] [place] [address] Performed By: #### P TTAC ####[facility] LABIA [id number] [address] [place] aPTT Coag (PPP) [Time] 65.2 s High 23.0-32.4 [facility] Comment on above: Order Comment: Speci men Type: BLOOD SPECIMENOrdering Facility: [facility] Address: [address] [place] [address] Performed By: #### P TTAC ####[facility] [id number] [place] [address] [place] Renal function 2000 panelon 05-11-2024 Albumin [Mass/Vol] 3.3 g/dL Low 3.9-4.9 [facility] Comment on above: Order Comment: Speci men Type: BLOOD SPECIMENOrdering Facility: [facility] Address: [address] [place] [address] Performed By: #### 2 4362-6 ####[facility] LABCLIA [id number] [place] [id number] [place] Anion gap [Moles/Vol] 10 mmol/L Normal 8-15 [facility] Comment on above: Order Comment: Speci men Type: BLOOD SPECIMENOrdering Facility: [facility] Address: [address] [place] [address] Performed By: #### 2 4362-6 ####[facility] LABCL[facility] [id number] [place] [address] [place] Calcium [Mass/Vol] 8.3 mg/dL Low 8.5-10.2 [facility] Comment on above: Order Comment: Speci men Type: BLOOD SPECIMENOrdering Facility: [facility] Address: [address] [place] [address] Performed By: #### 2 4362-6 ####[facility] LABCL[facility] [id number] [place] [address] [place] Chloride [Moles/Vol] 106 mmol/L Normal 98-107 [facility] Comment on above: Order Comment: Speci men Type: BLOOD SPECIMENOrdering Facility: [facility] Address: [address] [place] [address] Performed By: #### 2 4362-6 ####[facility]CL[facility] [id number] [place] [address] [place] CO2 [Moles/Vol] 24 mmol/L Normal 22-30 [facility] Comment on above: Order Comment: Speci men Type: BLOOD SPECIMENOrdering Facility: [facility] Address: [address] [place], [place] [id number] Performed By: #### 2 4362-6 ####[facility] LABCL[facility] [id number] [place] [id number] [place] Creatinine [Mass/Vol] 2.05 mg/dL High 0.73-1.22 [facility] Comment on above: Order Comment: Dylan olvera Type: BLOOD SPECIMENOrdering Facility: [facility] Address: [address] [place] [address] Performed By: #### 2 4362-6 ####[facility] LABIA [id number] [place] [address] [place] Creatinine and Glomerular filtration rate.predicted panel (S/P/Bld) 32 mL/min/1.73m??? Low >=60 [facility] Comment on above: Order Comment: Dylan olvera Type: BLOOD SPECIMENOrdering Facility: [facility] Address: [address] [place] [address] Result Comment: Etta mated Glomerular Filtration Rate [...] actual GFR. Performed By: #### 2 4362-6 ####[facility] LABIA [id number] [place] [address] [place] Glucose [Mass/Vol] 103 mg/dL High 74-99 [facility] Comment on above: Order Comment: Dylan olvera Type: BLOOD SPECIMENOrdering Facility: [facility] Address: [address] [place] [address] Result Comment: The [place] [employer] (ADA) provides guidance for cutoff [...] Standards of Medical Care in Diabetes 2016, [place] [employer]. Diabetes Care. 2016.39(Suppl 1). Performed By: #### 2 4362-6 ####[facility]CL[facility] [id number] [place] [address] [place] Phosphate [Mass/Vol] 2.3 mg/dL Low 2.7-4.8 [facility] Comment on above: Order Comment: Speci men Type: BLOOD SPECIMENOrdering Facility: [facility] Address: [address] [place] [address] Performed By: #### 2 4362-6 ####[facility] LABIA [id number] [place] [address] [place] Potassium [Moles/Vol] 3.8 mmol/L Normal 3.7-5.1 [facility] Comment on above: Order Comment: Speci men Type: BLOOD SPECIMENOrdering Facility: [facility] Address: [address] [place] [address] Performed By: #### 2 4362-6 ####[facility] LABIA [id number] [place] [address] [place] Sodium [Moles/Vol] 140 mmol/L Normal 136-144 [facility] Comment on above: Order Comment: Speci men Type: BLOOD SPECIMENOrdering Facility: [facility] Address: [address] [place] [address] Performed By: #### 2 4362-6 ####[facility]CL[facility] [id number] [place] [id number] [place] Urea nitrogen [Mass/Vol] 30 mg/dL High 9-24 [facility] Comment on above: Order Comment: Speci men Type: BLOOD SPECIMENOrdering Facility: [facility] Address: [address] [place] [address] Performed By: #### 2 4362-6 ####[facility]CL[facility] [id number] [place] [id number] [place] THERAPY NTon 08-26-2024 THERAPY NT Normal [facility] THERAPY NT Normal [facility] CBC panel Auto (Bld)on 05-10 Erythrocyte distribution width (RBC) [Ratio] 21.3 % High 11.5-15.0 [facility] Comment on above: Order Comment: Speci men Type: BLOOD SPECIMENOrdering Facility: [facility] Address: [address] [place] [address] Performed By: #### 5 8410-2 ####[facility] LABIA [id number] [address] [place] Hematocrit (Bld) [Volume fraction] 29.8 % Low 39.0-51.0 [facility] Comment on above: Order Comment: Speci men Type: BLOOD SPECIMENOrdering Facility: [facility] Address: [address] [place] [address] Performed By: #### 5 8410-2 ####[facility] LABIA [id number] [address] [place] Hemoglobin (Bld) [Mass/Vol] 8.6 g/dL Low 13.0-17.0 [facility] Comment on above: Order Comment: Speci men Type: BLOOD SPECIMENOrdering Facility: [facility] Address: [address] [place] [address] Performed By: #### 5 8410-2 ####[facility]IA [id number] [place] [address] [place] MCH (RBC) [Entitic mass] 30.0 pg Normal 26.0-34.0 [facility] Comment on above: Order Comment: Speci men Type: BLOOD SPECIMENOrdering Facility: [facility] Address: [address] [place] [address] Performed By: #### 5 8410-2 ####[facility] LABIA [id number] [place] [address] [place] MCHC (RBC) [Mass/Vol] 28.9 g/dL Low 30.5-36.0 [facility] Comment on above: Order Comment: Speci men Type: BLOOD SPECIMENOrdering Facility: [facility] Address: [address] [place] [address] Performed By: #### 5 8410-2 ####[facility] LABIA [id number] [place] [address] [place] MCV (RBC) [Entitic vol] 103.8 fL High 80.0-100.0 [facility] Comment on above: Order Comment: Speci men Type: BLOOD SPECIMENOrdering Facility: [facility] Address: [address] [place] [address] Performed By: #### 5 8410-2 ####[facility]IA [id number] [place] [address] [place] Nucleated RBC (Bld) [#/Vol] 0.02 10*3/uL High <0.01 [facility] Comment on above: Order Comment: Speci men Type: BLOOD SPECIMENOrdering Facility: [facility] Address: [address] [place] [address] Performed By: #### 5 8410-2 ####[facility]IA [id number] [place] [address] [place] Platelet mean volume (Bld) [Entitic vol] 10.6 fL Normal 9.0-12.7 [facility] Comment on above: Order Comment: Speci men Type: BLOOD SPECIMENOrdering Facility: [facility] Address: [address] [place] [address] Performed By: #### 5 8410-2 ####[facility] LABIA [id number] [place] [address] [place] Platelets (Bld) [#/Vol] 188 10*3/uL Normal 150-400 [facility] Comment on above: Order Comment: Speci men Type: BLOOD SPECIMENOrdering Facility: [facility] Address: [address] [place] [address] Performed By: #### 5 8410-2 ####[facility] [id number] [place] [address] [place] RBC (Bld) [#/Vol] 2.87 10*6/uL Low 4.20-6.00 [facility] Comment on above: Order Comment: Speci men Type: BLOOD SPECIMENOrdering Facility: [facility] Address: [address] [place] [address] Performed By: #### 5 8410-2 ####[facility] [id number] [place] [address] [place] WBC (Bld) [#/Vol] 4.87 10*3/uL Normal 3.70-11.00 [facility] Comment on above: Order Comment: Speci men Type: BLOOD SPECIMENOrdering Facility: [facility] Address: [address] [place] [address] Performed By: #### 5 8410-2 ####[facility] [id number] [place] [address] [place] NURSING PROGon 05-10-2024 NURSING PROG Normal [facility] PTT, ANTICOAGULANT THERAPYon 05-10-2024 aPTT Coag (PPP) [Time] 64.0 s High 23.0-32.4 [facility] Comment on above: Order Comment: Speci men Type: BLOOD SPECIMENOrdering Facility: [facility] Address: [address] [place] [address] Performed By: #### P TTAC ####[facility] [id number] [place] [address] [place] aPTT Coag (PPP) [Time] 46.0 s High 23.0-32.4 [facility] Comment on above: Order Comment: Speci men Type: BLOOD SPECIMENOrdering Facility: [facility] Address: [address] [place] [address] Performed By: #### P TTAC ####[facility]CL[facility] [id number] [place] [address] [place] aPTT Coag (PPP) [Time] 87.4 s High 23.0-32.4 [facility] Comment on above: Order Comment: Speci men Type: BLOOD SPECIMENOrdering Facility: [facility] Address: [address] [place] [address] Performed By: #### P TTAC ####[facility] [facility] [id number] [place] [address] [place] TYPE + SCREENon 05-10-2024 ABO O Normal [facility] Comment on above: Order Comment: Speci men Type: BLOOD SPECIMENOrdering Facility: [facility] Address: [address] [place] [address] Performed By: #### T SCR ####CC MAIN BLOOD BANKCLIA [id number] [place] [address] [place] HISTORICAL AB SCR STATUS Negative Normal [facility] Comment on above: Order Comment: Speci men Type: BLOOD SPECIMENOrdering Facility: [facility] Address: [address] [place] [address] Performed By: #### T SCR ####CC MAIN BLOOD BANKCLIA [id number] [place] [address] [place] Rh Nom (Bld) Positive Normal [facility] Comment on above: Order Comment: Speci men Type: BLOOD SPECIMENOrdering Facility: [facility] Address: [address] [place] [address] Performed By: #### T SCR ####CC MAIN BLOOD BANKCLIA [id number] [place] [address] [place] TYPE AND SCREEN EXPIRATION 05/13/2024 23:59 Normal [facility] Comment on above: Order Comment: Speci men Type: BLOOD SPECIMENOrdering Facility: [facility] Address: [address] [place] [address] Performed By: #### T SCR ####CC MAIN BLOOD BANKCLIA [id number] [facility] [id number] [address] [place] Basic metabolic 2000 panelon 05-09-2024 Anion gap [Moles/Vol] 10 mmol/L Normal 8-15 [facility] Comment on above: Order Comment: Speci men Type: BLOOD SPECIMEN Ordering Facility: [facility] Address: [address] [place] [address] Performed By: #### 3 4528-0, PTTAC #### [facility] CLIA [id number] [address] [place] [address] [place] Calcium [Mass/Vol] 8.6 mg/dL Normal 8.5-10.2 [facility] Comment on above: Order Comment: Speci men Type: BLOOD SPECIMEN Ordering Facility: [facility] Address: [address] [place] [address] Performed By: #### 3 4528-0, PTTAC #### [facility] CLIA [id number] [address] [place] [address] [place] Chloride [Moles/Vol] 105 mmol/L Normal 98-107 [facility] Comment on above: Order Comment: Speci men Type: BLOOD SPECIMEN Ordering Facility: [facility] Address: [address] [place] [address] Performed By: #### 3 4528-0, PTTAC #### [facility] CLIA [id number] [address] [place] [address] [place] CO2 [Moles/Vol] 24 mmol/L Normal 22-30 [facility] Comment on above: Order Comment: Speci men Type: BLOOD SPECIMEN Ordering Facility: [facility] Address: [address] [place] [address] Performed By: #### 3 4528-0, PTTAC #### [facility] CLIA [id number] [address] [place] [address] [place] Creatinine [Mass/Vol] 1.96 mg/dL High 0.73-1.22 [facility] Comment on above: Order Comment: Dylan olvera Type: BLOOD SPECIMEN Ordering Facility: [facility] Address: [address] [place] [address] Performed By: #### 3 4528-0, PTTAC #### [facility] CLIA [id number] [address] [place] [address] [facility] Creatinine and Glomerular filtration rate.predicted panel (S/P/Bld) 34 mL/min/1.73m??? Low >=60 [facility] Comment on above: Order Comment: Dylan olvera Type: BLOOD SPECIMEN Ordering Facility: [facility] Address: [address] [place] [address] Result Comment: Etta mated Glomerular Filtration Rate [...] Performed By: #### 3 4528-0, PTTAC #### [facility] CLIA [id number] [address] [place] [address] [place] Glucose [Mass/Vol] 114 mg/dL High 74-99 [facility] Comment on above: Order Comment: Dylan olvera Type: BLOOD SPECIMEN Ordering Facility: [facility] Address: [address] [place] [address] Result Comment: The [place] Diabetes Association (ADA) provides guidance for cutoff [...] Standards of Medical Care in Diabetes 2016, [place] [employer]. Diabetes Care. 2016.39(Suppl 1). Performed By: #### 3 4528-0, PTTAC #### [facility] CLIA [id number] [address] [place] [address] [place] Potassium [Moles/Vol] 4.1 mmol/L Normal 3.7-5.1 [facility] Comment on above: Order Comment: Speci men Type: BLOOD SPECIMEN Ordering Facility: [facility] Address: [address] [place] [address] Performed By: #### 3 4528-0, PTTAC #### [facility] CLIA [id number] [address] [place] [id number] [place] Sodium [Moles/Vol] 139 mmol/L Normal 136-144 [facility] Comment on above: Order Comment: Speci men Type: BLOOD SPECIMEN Ordering Facility: [facility] Address: [address] [place] [address] Performed By: #### 3 4528-0, PTTAC #### [facility] CLIA [id number] [address] [place] [address] [place] Urea nitrogen [Mass/Vol] 36 mg/dL High - [facility] Comment on above: Order Comment: Speci men Type: BLOOD SPECIMEN Ordering Facility: [facility] Address: [address] [place] [address] Performed By: #### 3 4528-0, PTTAC #### [facility] CLIA [id number] [address] [place] [id number] [place] CBC panel Auto (Bld)on 05-09 Erythrocyte distribution width (RBC) [Ratio] 21.8 % High 11.5-15.0 [facility] Comment on above: Order Comment: Speci men Type: BLOOD SPECIMENOrdering Facility: [facility] Address: [address] [place] [address] Performed By: #### 5 8410-2 ####[facility] LABCLIA [id number] [place] [address] [place] Hematocrit (Bld) [Volume fraction] 28.0 % Low 39.0-51.0 [facility] Comment on above: Order Comment: Speci men Type: BLOOD SPECIMENOrdering Facility: [facility] Address: [address] [place] [address] Performed By: #### 5 8410-2 ####[facility] LABCLIA [id number] [place] [address] [place] Hemoglobin (Bld) [Mass/Vol] 8.3 g/dL Low 13.0-17.0 [facility] Comment on above: Order Comment: Speci men Type: BLOOD SPECIMENOrdering Facility: [facility] Address: [address] [place] [address] Performed By: #### 5 8410-2 ####[facility] [id number] [place] [address] [place] MCH (RBC) [Entitic mass] 30.3 pg Normal 26.0-34.0 [facility] Comment on above: Order Comment: Speci men Type: BLOOD SPECIMENOrdering Facility: [facility] Address: [address] [place] [address] Performed By: #### 5 8410-2 ####[facility] LABIA [id number] [place] [address] [place] MCHC (RBC) [Mass/Vol] 29.6 g/dL Low 30.5-36.0 [facility] Comment on above: Order Comment: Speci men Type: BLOOD SPECIMENOrdering Facility: [facility] Address: [address] [place] [address] Performed By: #### 5 8410-2 ####[facility]CL[facility] [id number] [place] [address] [place] MCV (RBC) [Entitic vol] 102.2 fL High 80.0-100.0 [facility] Comment on above: Order Comment: Speci men Type: BLOOD SPECIMENOrdering Facility: [facility] Address: [address] [place] [address] Performed By: #### 5 8410-2 ####[facility] LABIA [id number] [place] [address] [place] Nucleated RBC (Bld) [#/Vol] 10*3/uL Normal <0.01 [facility] Comment on above: Order Comment: Speci men Type: BLOOD SPECIMENOrdering Facility: [facility] Address: [address] [place] [address] Performed By: #### 5 8410-2 ####[facility] LABIA [id number] [place] [address] [place] Platelet mean volume (Bld) [Entitic vol] 10.1 fL Normal 9.0-12.7 [facility] Comment on above: Order Comment: Speci men Type: BLOOD SPECIMENOrdering Facility: [facility] Address: [address] [place] [address] Performed By: #### 5 8410-2 ####[facility] LABIA [id number] [place] [address] [place] Platelets (Bld) [#/Vol] 170 10*3/uL Normal 150-400 [facility] Comment on above: Order Comment: Speci men Type: BLOOD SPECIMENOrdering Facility: [facility] Address: [address] [place] [address] Performed By: #### 5 8410-2 ####[facility] LABIA [id number] [place] [address] [place] RBC (Bld) [#/Vol] 2.74 10*6/uL Low 4.20-6.00 [facility] Comment on above: Order Comment: Speci men Type: BLOOD SPECIMENOrdering Facility: [facility] Address: [address] [place] [address] Performed By: #### 5 8410-2 ####[facility] LABCLIA [id number] [place] [address] [place] WBC (Bld) [#/Vol] 5.04 10*3/uL Normal 3.70-11.00 [facility] Comment on above: Order Comment: Speci men Type: BLOOD SPECIMENOrdering Facility: [facility] Address: [address] [place] [address] Performed By: #### 5 8410-2 ####[facility] LABCL[facility] [id number] [place] [address] [place] Erythrocyte distribution width (RBC) [Ratio] 21.8 % High 11.5-15.0 [facility] Comment on above: Order Comment: Speci men Type: BLOOD SPECIMEN Ordering Facility: [facility] Address: [address] [place] [address] Performed By: #### 5 8410-2 #### [facility] IA [id number] [address] [place] [address] [place] Hematocrit (Bld) [Volume fraction] 27.6 % Low 39.0-51.0 [facility] Comment on above: Order Comment: Speci men Type: BLOOD SPECIMEN Ordering Facility: [facility] Address: [address] [place] [address] Performed By: #### 5 8410-2 #### [facility] IA [id number] [address] [place] [address] [place] Hemoglobin (Bld) [Mass/Vol] 8.2 g/dL Low 13.0-17.0 [facility] Comment on above: Order Comment: Speci men Type: BLOOD SPECIMEN Ordering Facility: [facility] Address: [address] [place] [address] Performed By: #### 5 8410-2 #### [facility] IA [id number] [address] [place] [address] [place] MCH (RBC) [Entitic mass] 30.5 pg Normal 26.0-34.0 [facility] Comment on above: Order Comment: Speci men Type: BLOOD SPECIMEN Ordering Facility: [facility] Address: [address] [place] [address] Performed By: #### 5 8410-2 #### [facility] CLIA [id number] [address] [place] [address] [place] MCHC (RBC) [Mass/Vol] 29.7 g/dL Low 30.5-36.0 [facility] Comment on above: Order Comment: Speci men Type: BLOOD SPECIMEN Ordering Facility: [facility] Address: [address] [place] [address] Performed By: #### 5 8410-2 #### [facility] CLIA [id number] [address] [place] [address] [place] MCV (RBC) [Entitic vol] 102.6 fL High 80.0-100.0 [facility] Comment on above: Order Comment: Speci men Type: BLOOD SPECIMEN Ordering Facility: [facility] Address: [address] [place] [address] Performed By: #### 5 8410-2 #### [facility] CLIA [id number] [address] [place] Nucleated RBC (Bld) [#/Vol] 0.02 10*3/uL High <0.01 [facility] Comment on above: Order Comment: Speci men Type: BLOOD SPECIMEN Ordering Facility: [facility] Address: [address] [place] [address] Performed By: #### 5 8410-2 #### [facility] CLIA [id number] [place] Platelet mean volume (Bld) [Entitic vol] 10.5 fL Normal 9.0-12.7 [facility] Comment on above: Order Comment: Speci men Type: BLOOD SPECIMEN Ordering Facility: [facility] Address: [address] [place] [address] Performed By: #### 5 8410-2 #### [facility] CLIA [id number] [address] [place] [address] [facility] [place] Platelets (Bld) [#/Vol] 174 10*3/uL Normal 150-400 [facility] Comment on above: Order Comment: Speci men Type: BLOOD SPECIMEN Ordering Facility: [facility] Address: [address] [place] [address] Performed By: #### 5 8410-2 #### [facility] CLIA [id number] [address] [place] [address] [place] [facility] [place] RBC (Bld) [#/Vol] 2.69 10*6/uL Low 4.20-6.00 [facility] Comment on above: Order Comment: Speci men Type: BLOOD SPECIMEN Ordering Facility: [facility] Address: [address] [place] [address] Performed By: #### 5 8410-2 #### [facility] CLIA [id number] [address] [place] [address] [facility] WBC (Bld) [#/Vol] 5.62 10*3/uL Normal 3.70-11.00 [facility] Comment on above: Order Comment: Speci men Type: BLOOD SPECIMEN Ordering Facility: [facility] Address: [address] [place] [address] Performed By: #### 5 8410-2 #### [facility] CLIA [id number] [address] [place] [address] 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 Hb 8.8, baseline 11-12. ProBNP 51861 .CXR: left pleural effusions (new compares to 02/2024). Pt has crimson colored stool that is guaiac positive. Pt was evaluated by GI and cardiology while admitted. Asa and xarelto were on hold and pt was started on hepatin gtt. H/H remained stable. Initial plan was EGD/colonoscopy on Saturday. 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 Normal [facility] CONSULT PROGon 05-09-2024 CONSULT PROG HNO ID: [id number] Author: JOSÉ MIGUEL WHEELER PA-C Service: Cardiovascular Medicine Author Type: Physician [employer] Type: Consult Progress Note Filed: 05/09/2024 10:56 Note Text: [facility] CARDI[facility]ASCULAR MEDICINE PROGRESS NOTE (Template ID [id number]) SERVICE DATE: 05/09/2024 SERVICE TIME: 0900 PRIMARY [...] systolic function is moderately decreased. - Percutaneous famj-pt-wgmw repair of the mitral valve with 1 [...] -- 05/06/24 2130 activity - mobilize patient (mi,oh) VTE Prophylaxis: VTE prophylaxis appropriate ASSESSMENT AND PLAN Chronic systolic HF - TTE 05/06: LVEF 15% - s/p ICD - appears clinically compensated - GDMT: Toprol 25mg Farxiga on hold - Diuretic: lasix 40mg daily - strict I/O's, daily wts CAD - s/p CABG '(OTTO-LAD, SVG-OM, SVG-PDA) - LHC with patent OTTO and SVG to OM. Occluded SVG to PDA - stable - cont statin, ASA on hold VHD - Mod MR/TR LV thrombus - TTE as above - xarelto on hold in setting of anemia, IV heparin HLD - cont zetia, ator Plan of care to be discussed with Dr. De Los Santos Agree with transfer to [facility] for further evaluation and care José Miguel Wheeler PA-C Cardiology consults SIGNATURE: José Miguel Wheeler PA-C PATIENT NAME: José Miguel Antonio JrTitus DATE: May 09, 2024 TIME: 9:15 AM For communication after 5 pm on weekdays and after 12 pm on weekends, please page the following: - Clinical Cardiology patients on all floors: page [phone] - All other patients: after hours RYLIE page [phone] - For any urgent or emerge (more content not included)... Normal [facility] Comprehensive metabolic 2000 panelon 05-09-2024 Albumin [Mass/Vol] 3.4 g/dL Low 3.9-4.9 [facility] Comment on above: Order Comment: Dylan olvera Type: BLOOD SPECIMENOrdering Facility: [facility] Address: [address] [place] [address] Performed By: #### 2 4323-8, 66311-3, 45114-9, 3016-3 ####[facility] [id number] [facility] [id number], [place] [address] [place] ALP [Catalytic activity/Vol] 88 U/L Normal 38-113 [facility] Comment on above: Order Comment: Dylan olvera Type: BLOOD SPECIMENOrdering Facility: [facility] Address: [address] [place] [address] Performed By: #### 2 4323-8, 18182-8, 45512-9, 3016-3 ####[facility] LABCLIA [id number] [address] [address] [place] ALT [Catalytic activity/Vol] 11 U/L Normal 10-54 [facility] Comment on above: Order Comment: Speci men Type: BLOOD SPECIMENOrdering Facility: [facility] Address: [address] [place] [address] Performed By: #### 2 4323-8, 03458-3, 52729-0, 6-3 ####[facility] LABCLIA [id number] [place] [address] [place] Anion gap [Moles/Vol] 10 mmol/L Normal 8-15 [facility] Comment on above: Order Comment: Speci men Type: BLOOD SPECIMENOrdering Facility: [facility] Address: [address] [place] [address] Performed By: #### 2 4323-8, 88376-5, 37093-9, 6-3 ####[facility]CL[facility] [id number] [place] [address] [place] AST [Catalytic activity/Vol] 17 U/L Normal 14-40 [facility] Comment on above: Order Comment: Speci men Type: BLOOD SPECIMENOrdering Facility: [facility] Address: [address] [place] [address] Performed By: #### 2 4323-8, 96970-8, 97165-8, 6-3 ####[facility] [id number] [place] [id number] [place] Bilirubin [Mass/Vol] 0.7 mg/dL Normal 0.2-1.3 [facility] Comment on above: Order Comment: Speci men Type: BLOOD SPECIMENOrdering Facility: [facility] Address: [address] [place] [address] Performed By: #### 2 4323-8, 53706-6, 06164-2, 6-3 ####[facility]CL[facility] [id number] [address] [address] [place] Calcium [Mass/Vol] 8.9 mg/dL Normal 8.5-10.2 [facility] Comment on above: Order Comment: Speci men Type: BLOOD SPECIMENOrdering Facility: [facility] Address: [address] [place] [address] Performed By: #### 2 4323-8, 27234-8, 63925-0, 6-3 ####[facility]IA [id number] [address] [address] [place] Chloride [Moles/Vol] 106 mmol/L Normal 98-107 [facility] Comment on above: Order Comment: Speci men Type: BLOOD SPECIMENOrdering Facility: [facility] Address: [address] [place] [address] Performed By: #### 2 4323-8, 45041-4, 96041-2, 6-3 ####[facility]IA [id number] [address] [address] [place] CO2 [Moles/Vol] 23 mmol/L Normal 22-30 [facility] Comment on above: Order Comment: Speci men Type: BLOOD SPECIMENOrdering Facility: [facility] Address: [address] [place] [address] Performed By: #### 2 4323-8, 20706-7, 89655-4, 6-3 ####[facility] LABIA [id number] [address] [address] [place] Creatinine [Mass/Vol] 2.02 mg/dL High 0.73-1.22 [facility] Comment on above: Order Comment: Speci men Type: BLOOD SPECIMENOrdering Facility: [facility] Address: [address] [place] [address] Performed By: #### 2 4323-8, 36274-1, 19342-6, 6-3 ####[facility] [id number] [place] [address] [place] Creatinine and Glomerular filtration rate.predicted panel (S/P/Bld) 32 mL/min/1.73m??? Low >=60 [facility] Comment on above: Order Comment: Dylan olvera Type: BLOOD SPECIMENOrdering Facility: [facility] Address: [address] [place] [address] Result Comment: Etta mated Glomerular Filtration Rate [...] actual GFR. Performed By: #### 2 4323-8, 15715-4, 35020-0, 6-3 ####[facility] LABIA [id number] [place] [id number] [place] Glucose [Mass/Vol] 96 mg/dL Normal 74-99 [facility] Comment on above: Order Comment: Dylan olvera Type: BLOOD SPECIMENOrdering Facility: [facility] Address: [address] [place] [address] Result Comment: The [place] [employer] (ADA) provides guidance for cutoff [...] Standards of Medical Care in Diabetes 2016, [place] [employer]. Diabetes Care. 2016.39(Suppl 1). Performed By: #### 2 4323-8, 10744-4, 32463-3, 6-3 ####[facility] [id number] [address] [address] [place] Potassium [Moles/Vol] 4.3 mmol/L Normal 3.7-5.1 [facility] Comment on above: Order Comment: Speci men Type: BLOOD SPECIMENOrdering Facility: [facility] Address: [address] [place], [place] [address] Performed By: #### 2 4323-8, 26745-6, 10514-2, 6-3 ####[facility]CL[facility] [id number] [place] [id number] [place] Protein [Mass/Vol] 6.0 g/dL Low 6.3-8.0 [facility] Comment on above: Order Comment: Speci men Type: BLOOD SPECIMENOrdering Facility: [facility] Address: [address] [place] [address] Performed By: #### 2 4323-8, 15393-0, 38258-3, 6-3 ####[facility]IA [id number] [place] [id number] [place] Sodium [Moles/Vol] 139 mmol/L Normal 136-144 [facility] Comment on above: Order Comment: Speci men Type: BLOOD SPECIMENOrdering Facility: [facility] Address: [address] [place] [address] Performed By: #### 2 4323-8, 61668-0, 43984-5, 3016-3 ####[facility] LABIA [id number] [address] [address] [place] Urea nitrogen [Mass/Vol] 35 mg/dL High 9-24 [facility] Comment on above: Order Comment: Speci men Type: BLOOD SPECIMENOrdering Facility: [facility] Address: [address] [place], [place] [address] Performed By: #### 2 4323-8, 51870-0, 80760-4, 3016-3 ####[facility] LABCLIA [id number] [place] [address] [place] ECG COMPLETEon 05-09-2024 ECG COMPLETE Normal [facility] EKGon 05-09-2024 Electrocardiogram Ventricular Rate : 8 5 BPM Atrial Rate : 85 BPM P-R Interval : 181 ms QRS Duration : 123 ms Q-T Interval : 413 ms QTC Calculation(Bazett) : 492 ms Calculated P North Hero : 78 degrees Calculated R [place] : -6 degrees Calculated T [place] : 135 degrees Sinus rhythm Multiform ventricular premature complexes Left bundle branch block Abnormal ECG Confirmed by SHERIE OSBORNE M.D. ([id number]) on 05/11/2024 3:03:05 PM NAME : JOSÉ MIGUEL ANTONIO PID : [id number] : 1940 Gender : Male Race : [...] Referred By : , Acquired by : [id number], [facility] Electrocardiogram Ventricular Rate : 8 5 BPM Atrial Rate : 85 BPM P-R Interval : 180 ms QRS Duration : 123 ms Q-T Interval : 406 ms QTC Calculation(Bazett) : 483 ms Calculated P North Hero : 69 degrees Calculated R [place] Hero : -7 degrees Calculated T [place] Hero : 145 degrees Sinus rhythm Ventricular premature complex Left bundle branch block Abnormal ECG Confirmed by SHERIE OSBORNE M.D. ([id number]) on 05/11/2024 3:03:15 PM NAME : JOSÉ MIGUEL ANTONIO PID : [id number] : 1940 Gender : Male Race : [...] Referred By : , Acquired by : [id number], [facility] HIGH SENSITIVITY TROPONIN To n 05-09-2024 Troponin T.cardiac High sensitivity method [Mass/Vol] 38 ng/L High <12 [facility] Comment on above: Order Comment: Speci men Type: BLOOD SPECIMENOrdering Facility: [facility] Address: [address] [place] [address] Performed By: #### H STNT, 87052-2 ####[facility] LABCLIA [id number] [place] [address] [place] HISTORY PHYSICALon HISTORY PHYSICAL Normal [facility] HbA1c (Bld)on 05-09-2024 Average glucose Estimated from glycated hemoglobin (Bld) [Mass/Vol] 82 mg/dL Normal [facility] Comment on above: Order Comment: Dylan [facility] Type: BLOOD SPECIMENOrdering Facility: [facility] Address: [address] [place] [address] Result Comment: eAG: (Estimated average glucose) is a calculated value from HgbA1c and is kiosk sales representative of the average blood glucose level in the last 2-3 month period. Performed By: #### 5 5454-3 ####[facility] LABCLIA [id number] [place] [address] [place] HbA1c (Bld) [Mass fraction] 4.5 % Normal 4.3-5.6 [facility] Comment on above: Order Comment: Dylan [facility] Type: BLOOD SPECIMENOrdering Facility: [facility] Address: [address] [place] [address] Result Comment: Amer [place] Diabetes Association guidelines indicate that patients with HgbA1c in the range 5.7-6.4% are at increased risk for development of diabetes, and intervention by lifestyle modification may be beneficial. HgbA1c greater or equal to 6.5% is considered diagnostic of diabetes. Performed By: #### 5 5454-3 ####[facility] LABCLIA [id number] [address] [address] [place] Iron and Iron binding capaci ty panelon 05-09-2024 Iron [Mass/Vol] 66 ug/dL Normal 41-186 [facility] Comment on above: Order Comment: Speci men Type: BLOOD SPECIMENOrdering Facility: [facility] Address: [address] [place] [address] Performed By: #### 2 4323-8, 56701-5, 14998-9, 6-3 ####[facility] [id number] [place] [id number] [place] Iron binding capacity [Mass/Vol] 250 ug/dL Normal 232-386 [facility] Comment on above: Order Comment: Speci men Type: BLOOD SPECIMENOrdering Facility: [facility] Address: [address] [place] [address] Performed By: #### 2 4323-8, 96956-9, 42561-6, 6-3 ####[facility] [id number] [place] [id number] [place] Iron/TIBC [Molar ratio] 26.4 % Normal 15.0-57.0 [facility] Comment on above: Order Comment: Speci men Type: BLOOD SPECIMENOrdering Facility: [facility] Address: [address] [place] [address] Performed By: #### 2 4323-8, 89129-2, 98753-1, 6-3 ####[facility] LABIA [id number] [address] [address] [place] Magnesium SerPl-mCncon 05-09 Magnesium [Mass/Vol] 2.6 mg/dL High 1.7-2.3 [facility] Comment on above: Order Comment: Speci men Type: BLOOD SPECIMENOrdering Facility: [facility] Address: [address] [place] [address] Performed By: #### 2 4323-8, 07019-9, 97958-4, 3016-3 ####[facility] LABCLIA [id number] [place] [address] [place] Magnesium [Mass/Vol] 2.4 mg/dL High 1.7-2.3 [facility] Comment on above: Order Comment: Dylan olvera Type: BLOOD SPECIMEN Ordering Facility: [facility] Address: [address] [place] [address] Performed By: #### 3 4528-0, PTTAC #### [facility] CLIA [id number] [facility] [place] [address] [place] NT-proBNP [facility] 05-09 Natriuretic peptide.B prohormone N-Terminal [Mass/Vol] 42381 pg/mL High <450 [facility] Comment on above: Order Comment: [facility] Type: BLOOD SPECIMENOrdering Facility: [facility] Address: [address] [place] [address] Performed By: #### H STNT, 27268-4 ####[facility] LABCLIA [id number] [place] [address] [place] NURSING PROGon 05-09-2024 NURSING PROG Normal [facility] NURSING PROG HNO ID: [id number] Author: BO ZHAO RN Service: Nursing Author Type: Registered Nurse Type: Nursing Progress Note Filed: 05/09/2024 13:26 Note Text: Patient accepted at [facility]: G81, Bed 15 11:00 - Clinical hand off report given to receiving RNMorena @ . Receiving RN and patient aware that patient will be transported with the Heparin drip. Next lab draw to occur at 12:00, (prior to or after arrival dependent upon timing of transport). 12:30 - Scheduled Heparin draw completed at [facility]. APPTT @ 72.4. Dose changed per Nomogram. Next scheduled lab draw @ 18:00. Receiving RN at [facility] and patient are aware. Patient requesting daily lasix dose be given after arrival to [facility]. Receiving RN aware. Patient is aware of, has actively participated in, and is in agreement with treatment plan of care. 13:25 - Patient transferred to [facility] Via [facility] transport in stable condition BP 100/61 Pulse 77 Temp 36.5 ?C (97.7 ?F) (Oral) Resp 18 Ht 182.9 cm (6') Wt 81.1 kg (178 lb 12.7 oz) SpO2 98% BMI 24.25 kg/m? Normal [facility] PT panel Coag (PPP)on 2023 INR Coag (PPP) [Relative time] 1.3 {INR} Normal 0.9-1.3 [facility] Comment on above: Order Comment: Dylan olvera Type: BLOOD SPECIMENOrdering Facility: [facility] Address: [address] [place] [address] Result Comment: Loulou min K Antagonist (VKA) Therapeutic Range: INR 2 to 3 (Target INR of 2.5)Note: For patients treated with VKA drugs, such as warfarin, the [place] [employer] Chest [employer]icians 2012 Guideline recommends [...] al. Chest 2012, 141:7S-47SNishimura RA, et al. JAC 2017, 70: 252-289 Performed By: #### 3 4528-0, PTTAC ####[facility] LABCLIA [id number] [place] [address] [place] PT Coag (PPP) [Time] 13.3 s High 9.7-13.0 [facility] Comment on above: Order Comment: Dylan olvera Type: BLOOD SPECIMENOrdering Facility: [facility] Address: [address] [place] [address] Performed By: #### 3 4528-0, PTTAC ####[facility] [id number] [place] [id number] [place] PTT, ANTICOAGULANT THERAPYon 05-09-2024 aPTT Coag (PPP) [Time] 31.7 s Normal 23.0-32.4 [facility] Comment on above: Order Comment: Speci men Type: BLOOD SPECIMENOrdering Facility: [facility] Address: [address] [place] [address] Performed By: #### 3 4528-0, PTTAC ####[facility] [id number] [place] [address] [place] aPTT Coag (PPP) [Time] 72.4 s High 23.0-32.4 [facility] Comment on above: Order Comment: Speci men Type: BLOOD SPECIMEN Ordering Facility: [facility] Address: [address] [place] [address] Performed By: #### P TTAC #### [facility] IA [id number] [address] [place] [address] [place] aPTT Coag (PPP) [Time] 82.1 s High 23.0-32.4 [facility] Comment on above: Order Comment: Speci men Type: BLOOD SPECIMEN Ordering Facility: [facility] Address: [address] [place] [address] Performed By: #### L [id number] #### [facility] IA [id number] [address] [place] [address] [place] TSH SerPl-aCncon 05-09-2024 TSH Qn 0.519 m[IU]/L Normal 0.270-4.200 [facility] Comment on above: Order Comment: Speci men Type: BLOOD SPECIMENOrdering Facility: [facility] Address: [address] [place] [address] Performed By: #### 2 4323-8, 11931-5, 24040-2, 3016-3 ####[facility] LABCLIA [id number] LACHELLEKurtis [id number] [address] [place] XR CHEST 1V FRONTAL PORTon 0 05-09-2024 XR CHEST 1V FRONTAL PORT Normal [facility] Basic metabolic 2000 panelon 05-08-2024 Anion gap [Moles/Vol] 11 mmol/L Normal 8-15 [facility] Comment on above: Order Comment: Speci men Type: BLOOD SPECIMEN Ordering Facility: [facility] Address: [address] [place] [address] Performed By: #### 3 4528-0, PTTAC #### [facility] CLIA [id number] [address] [place] [address] [place] Calcium [Mass/Vol] 8.4 mg/dL Low 8.5-10.2 [facility] Comment on above: Order Comment: Speci men Type: BLOOD SPECIMEN Ordering Facility: [facility] Address: [address] [place] [address] Performed By: #### 3 4528-0, PTTAC #### [facility] CLIA [id number] [address] [place] [address] [place] Chloride [Moles/Vol] 105 mmol/L Normal 98-107 [facility] Comment on above: Order Comment: Speci men Type: BLOOD SPECIMEN Ordering Facility: [facility] Address: [address] [place] [address] Performed By: #### 3 4528-0, PTTAC #### [facility] CLIA [id number] [address] [place] [address] [place] CO2 [Moles/Vol] 24 mmol/L Normal 22-30 [facility] Comment on above: Order Comment: Speci men Type: BLOOD SPECIMEN Ordering Facility: [facility] Address: [address] [place] [address] Performed By: #### 3 4528-0, PTTAC #### [facility] CLIA [id number] [place] [address] [place] Creatinine [Mass/Vol] 2.07 mg/dL High 0.73-1.22 [facility] Comment on above: Order Comment: Dylan olvera Type: BLOOD SPECIMEN Ordering Facility: [facility] Address: [address] [place] [address] Performed By: #### 3 4528-0, PTTAC #### [facility] CLIA [id number] [address] [place] [address] [place] Creatinine and Glomerular filtration rate.predicted panel (S/P/Bld) 31 mL/min/1.73m??? Low >=60 [facility] Comment on above: Order Comment: Dylan olvera Type: BLOOD SPECIMEN Ordering Facility: [facility] Address: [address] [place] [address] Result Comment: Etta mated Glomerular Filtration Rate [...] Performed By: #### 3 4528-0, PTTAC #### [facility] CLIA [id number] [address] [place] [address] [place] Glucose [Mass/Vol] 105 mg/dL High 74-99 [facility] Comment on above: Order Comment: Dylan olvera Type: BLOOD SPECIMEN Ordering Facility: [facility] Address: [address] [place] [address] Result Comment: The [place] Diabetes Association (ADA) provides guidance for cutoff [...] Standards of Medical Care in Diabetes 2016, [place] Diabetes Association. Diabetes Care. 2016.39(Suppl 1). Performed By: #### 3 4528-0, PTTAC #### [facility] CLIA [id number] [address] [place] [address] [place] Potassium [Moles/Vol] 3.4 mmol/L Low 3.7-5.1 [facility] Comment on above: Order Comment: Speci men Type: BLOOD SPECIMEN Ordering Facility: [facility] Address: [address] [place] [address] Performed By: #### 3 4528-0, PTTAC #### [facility] CLIA [id number] [address] [place] Sodium [Moles/Vol] 140 mmol/L Normal 136-144 [facility] Comment on above: Order Comment: Speci men Type: BLOOD SPECIMEN Ordering Facility: [facility] Address: [address] [place] [address] Performed By: #### 3 4528-0, PTTAC #### [facility] IA [id number] [address] [place] [address] [place] Urea nitrogen [Mass/Vol] 39 mg/dL High 9-24 [facility] Comment on above: Order Comment: Speci men Type: BLOOD SPECIMEN Ordering Facility: [facility] Address: [address] [place] [address] Performed By: #### 3 4528-0, PTTAC #### [facility] CLIA [id number] [address] [place] [address] [place] CBC panel Auto (Bld)on 05-08 Erythrocyte distribution width (RBC) [Ratio] 22.1 % High 11.5-15.0 [facility] Comment on above: Order Comment: Speci men Type: BLOOD SPECIMEN Ordering Facility: [facility] Address: [address] [place] [address] Performed By: #### L [id number] #### [facility] CLIA [id number] [facility] Hematocrit (Bld) [Volume fraction] 27.9 % Low 39.0-51.0 [facility] Comment on above: Order Comment: Speci men Type: BLOOD SPECIMEN Ordering Facility: [facility] Address: [address] [place] [address] Performed By: #### L [id number] #### [facility] CLIA [id number] [place] Hemoglobin (Bld) [Mass/Vol] 8.1 g/dL Low 13.0-17.0 [facility] Comment on above: Order Comment: Speci men Type: BLOOD SPECIMEN Ordering Facility: [facility] Address: [address] [place] [address] Performed By: #### L [id number] #### [facility] IA [id number] [place] MCH (RBC) [Entitic mass] 29.9 pg Normal 26.0-34.0 [facility] Comment on above: Order Comment: Speci men Type: BLOOD SPECIMEN Ordering Facility: [facility] Address: [address] [place] [address] Performed By: #### L [id number] #### [facility] IA [id number] [place] MCHC (RBC) [Mass/Vol] 29.0 g/dL Low 30.5-36.0 [facility] Comment on above: Order Comment: Speci men Type: BLOOD SPECIMEN Ordering Facility: [facility] Address: [address] [place] [address] Performed By: #### L [id number] #### [facility] CLIA [id number] [place] MCV (RBC) [Entitic vol] 103.0 fL High 80.0-100.0 [facility] Comment on above: Order Comment: Speci men Type: BLOOD SPECIMEN Ordering Facility: [facility] Address: [address] [place] [address] Performed By: #### L [id number] #### [facility] CLIA [id number] [address] [place] [address] [place] Nucleated RBC (Bld) [#/Vol] 10*3/uL Normal <0.01 [facility] Comment on above: Order Comment: Speci men Type: BLOOD SPECIMEN Ordering Facility: [facility] Address: [address] [place] [address] Performed By: #### L [id number] #### [facility] CLIA [id number] [address] [place] [address] [place] Platelet mean volume (Bld) [Entitic vol] 10.6 fL Normal 9.0-12.7 [facility] Comment on above: Order Comment: Speci men Type: BLOOD SPECIMEN Ordering Facility: [facility] Address: [address] [place] [address] Performed By: #### L [id number] #### [facility] IA [id number] [place] [address] [place] Platelets (Bld) [#/Vol] 166 10*3/uL Normal 150-400 [facility] Comment on above: Order Comment: Speci men Type: BLOOD SPECIMEN Ordering Facility: [facility] Address: [address] [place] [address] Performed By: #### L [id number] #### [facility] IA [id number] [address] [place] [address] [place] RBC (Bld) [#/Vol] 2.71 10*6/uL Low 4.20-6.00 [facility] Comment on above: Order Comment: Speci men Type: BLOOD SPECIMEN Ordering Facility: [facility] Address: [address] [place] [address] Performed By: #### L [id number] #### [facility] CLIA [id number] [address] [place] [address] [place] WBC (Bld) [#/Vol] 5.29 10*3/uL Normal 3.70-11.00 [facility] Comment on above: Order Comment: Speci men Type: BLOOD SPECIMEN Ordering Facility: [facility] Address: [address] [place] [address] Performed By: #### L [id number] #### [facility] CLIA [id number] [facility] [place] [address] [place] CONSULT PROGon 05-08-2024 CONSULT PROG HNO ID: [id number] Author: LORENA GALINDO APRN.EDISCOVERY PROJECT MANAGER Service: Gastroenterology Author Type: Nurse Practitioner Type: Consult Progress Note Filed: 05/08/2024 15:15 Note Text: Brief GI plan of care: Met with patient at bedside. Called 3 daughters via speaker phone whom were monotype machinist for entire interview. Patient is still struggling [...] of Epic record/Care Everywhere. Spoke with Alex (sleep tech) whom states no adverse effects of oral contrast to kidney so will proceed with CT A/P oral contrast only at this time. GI team to follow along with results of Ct, final decisions this weekend. Spoke with INOCENTE Dobbins (endo coordinator) whom states is was confirmed per anesthesia yesterday case can be done at [facility] [place] [facility] so long as during working hours (not with monotype machinist staff/resources). Updated Dr. Heredia, Dr. Bardales. Normal [facility] CONSULT PROG HNO ID: [id number] Author: DEBBI NICOLE APRN.EDISCOVERY PROJECT MANAGER Service: Cardiovascular Medicine Author Type: Nurse Practitioner Type: Consult Progress Note Filed: 05/08/2024 10:46 Note Text: [facility] CONSULT PROGRESS NOTE (Template ID [id number]) CONSULTING SERVICE: Cardiology: Consult Team PRIMARY SERVICE: [...] systolic function is moderately decreased. - Percutaneous [id number]-cnzq repair of the mitral valve with 1 [...] male followed by Dr Liang Brady at [facility] , who presented from outpatient Echo lab at [facility] to ER due for generalized weakness and SANTILLAN. On admission he was found to be anemic with drop in his H and H. and stools Guaiac +. Treated with iron. NT Pro BNP 57411. CXR: left pleural effusions. He completed 325 mg ASA and Plavix course for 4 weeks. AC was held while on DAPT and started on Xarelto on 03/29/24 for suspected LV thrombus. Chronic combined systolic and diastolic CHF, h/o severe ICM (LV EF ~15%), s/p DC-ICD (in 2019), (more content not included)... Normal [facility] CT ABD/PEL WO IVCONon 2023 CT ABD/PEL WO IVCON * * *Final Report* * * DATE OF EXAM: May 08 2024 1:40PM [facility] 0531 - CT ABD/PEL WO IVCON [...] small volume of stool in the colon. Airbrush Artist: LUZ MARIA Transcribe Date/Time: May 08 2024 3:12P Dictated by : EVANS SENIOR MD This examination was interpreted and the report reviewed and electronically signed by: EVANS SENIOR MD on May 08 2024 3:24PM EST [id number] Normal [facility] Magnesium SerPl-mCncon 05-08 Magnesium [Mass/Vol] 2.3 mg/dL Normal 1.7-2.3 [facility] Comment on above: Order Comment: Speci men Type: BLOOD SPECIMEN Ordering Facility: [facility] Address: [address] [place] [address] Performed By: #### 3 4528-0, PTTAC #### [facility] CLIA [id number] [address] [place] [address] [facility] NURSING PROGon 05-08-2024 NURSING PROG HNO ID: [id number] Author: MANDI PITTS, RN Service: ? Author Type: Registered Nurse [...] LIP of any changes. Normal [facility] PTT, ANTICOAGULANT THERAPYon 05-08-2024 aPTT Coag (PPP) [Time] 66.1 s High 23.0-32.4 [facility] Comment on above: Order Comment: Specgregory olvera Type: BLOOD SPECIMEN Ordering Facility: [facility] Address: [address] [place] [address] Performed By: #### P TTAC #### [facility] CLIA [id number] [address] [place] [address] [facility] aPTT Coag (PPP) [Time] 48.5 s High 23.0-32.4 [facility] Comment on above: Order Comment: Speci may Type: BLOOD SPECIMEN Ordering Facility: [facility] Address: [address] [place] [address] Performed By: #### L [id number] #### [facility] CLIA [id number] [address] [place] [address] [facility] aPTT Coag (PPP) [Time] 56.6 s High 23.0-32.4 [facility] Comment on above: Order Comment: Speci men Type: BLOOD SPECIMEN Ordering Facility: [facility] Address: [address] [place] [address] Performed By: #### P TTAC #### [facility] CLIA [id number] [address] [place] [address] [place] aPTT Coag (PPP) [Time] 80.2 s High 23.0-32.4 [facility] Comment on above: Order Comment: Speci men Type: BLOOD SPECIMEN Ordering Facility: [facility] Address: [address] [place] [address] Performed By: #### 3 4528-0, PTTAC #### [facility] CLIA [id number] [address] [place] [address] [place] Basic metabolic 2000 panelon 05-07-2024 Anion gap [Moles/Vol] 11 mmol/L Normal 8-15 [facility] Comment on above: Order Comment: Speci men Type: BLOOD SPECIMEN Ordering Facility: [facility] Address: [address] [place] [address] Performed By: #### L [id number] #### [facility] CLIA [id number] [address] [place] [address] [place] Calcium [Mass/Vol] 8.6 mg/dL Normal 8.5-10.2 [facility] Comment on above: Order Comment: Speci men Type: BLOOD SPECIMEN Ordering Facility: [facility] Address: [address] [place] [address] Performed By: #### L [id number] #### [facility] CLIA [id number] [address] [place] [address] [place] Chloride [Moles/Vol] 104 mmol/L Normal 98-107 [facility] Comment on above: Order Comment: Speci men Type: BLOOD SPECIMEN Ordering Facility: [facility] Address: [address] [place] [address] Performed By: #### L [id number] #### [facility] CLIA [id number] [address] [place] [address] [place] CO2 [Moles/Vol] 25 mmol/L Normal 22-30 [facility] Comment on above: Order Comment: Rozi men Type: BLOOD SPECIMEN Ordering Facility: [facility] Address: [address] [place] [address] Performed By: #### L [id number] #### [facility] CLIA [id number] [address] [place] [address] [place] Creatinine [Mass/Vol] 2.09 mg/dL High 0.73-1.22 [facility] Comment on above: Order Comment: Rozi [facility] Type: BLOOD SPECIMEN Ordering Facility: [facility] Address: [address] [place] [address] Performed By: #### L [id number] #### [facility] CLIA [id number] [address] [place], [place] [id number] [place] [address] [place] Creatinine and Glomerular filtration rate.predicted panel (S/P/Bld) 31 mL/min/1.73m??? Low >=60 [facility] Comment on above: Order Comment: Dylan [facility] Type: BLOOD SPECIMEN Ordering Facility: [facility] Address: [address] [place] [address] Result Comment: Etta mated Glomerular Filtration Rate [...] reflect actual GFR. Performed By: #### L [id number] #### [facility] CLIA [id number] [address] [place] [address] [place] Glucose [Mass/Vol] 93 mg/dL Normal 74-99 [facility] Comment on above: Order Comment: Dylan men Type: BLOOD SPECIMEN Ordering Facility: [facility] Address: [address] [place] [address] Result Comment: The [place] [employer] (ADA) provides guidance for cutoff [...] Standards of Medical Care in Diabetes 2016, [place] [employer]. Diabetes Care. 2016.39(Suppl 1). Performed By: #### L [id number] #### [facility] CLIA [id number] [address] [place] [address] [place] Potassium [Moles/Vol] 3.6 mmol/L Low 3.7-5.1 [facility] Comment on above: Order Comment: Dylan olvera Type: BLOOD SPECIMEN Ordering Facility: [facility] Address: [address] [place] [address] Performed By: #### L [id number] #### [facility] CLIA [id number] [address] [place] [address] [place] Sodium [Moles/Vol] 140 mmol/L Normal 136-144 [facility] Comment on above: Order Comment: Dylan olvera Type: BLOOD SPECIMEN Ordering Facility: [facility] Address: [address] [place] [address] Performed By: #### L [id number] #### [facility] CLIA [id number] [address] [place] [address] [place] Urea nitrogen [Mass/Vol] 42 mg/dL High 9-24 [facility] Comment on above: Order Comment: Dylan olvera Type: BLOOD SPECIMEN Ordering Facility: [facility] Address: [address] [place] [address] Performed By: #### L [id number] #### [facility] CLIA [id number] [address] [place] [address] [place] CBC panel Auto (Bld)on 05-07 Erythrocyte distribution width (RBC) [Ratio] 22.4 % High 11.5-15.0 [facility] Comment on above: Order Comment: Speci men Type: BLOOD SPECIMEN Ordering Facility: [facility] Address: [address] [place] [address] Performed By: #### 3 4528-0, PTTAC #### [facility] CLIA [id number] [address] [place] [address] [place] Hematocrit (Bld) [Volume fraction] 27.2 % Low 39.0-51.0 [facility] Comment on above: Order Comment: Speci men Type: BLOOD SPECIMEN Ordering Facility: [facility] Address: [address] [place] [address] Performed By: #### 3 4528-0, PTTAC #### [facility] CLIA [id number] [address] [place] [address] [place] Hemoglobin (Bld) [Mass/Vol] 8.0 g/dL Low 13.0-17.0 [facility] Comment on above: Order Comment: Speci men Type: BLOOD SPECIMEN Ordering Facility: [facility] Address: [address] [place] [address] Performed By: #### 3 4528-0, PTTAC #### [facility] CLIA [id number] [address] [place] [address] [place] MCH (RBC) [Entitic mass] 30.4 pg Normal 26.0-34.0 [facility] Comment on above: Order Comment: Speci men Type: BLOOD SPECIMEN Ordering Facility: [facility] Address: [address] [place] [address] Performed By: #### 3 4528-0, PTTAC #### [facility] CLIA [id number] [address] [place] MCHC (RBC) [Mass/Vol] 29.4 g/dL Low 30.5-36.0 [facility] Comment on above: Order Comment: Speci men Type: BLOOD SPECIMEN Ordering Facility: [facility] Address: [address] [place] [address] Performed By: #### 3 4528-0, PTTAC #### [facility] IA [id number] [address] [place] [address] [place] MCV (RBC) [Entitic vol] 103.4 fL High 80.0-100.0 [facility] Comment on above: Order Comment: Speci men Type: BLOOD SPECIMEN Ordering Facility: [facility] Address: [address] [place] [address] Performed By: #### 3 4528-0, PTTAC #### [facility] IA [id number] [address] [place] [address] [place] Nucleated RBC (Bld) [#/Vol] 0.02 10*3/uL High <0.01 [facility] Comment on above: Order Comment: Speci men Type: BLOOD SPECIMEN Ordering Facility: [facility] Address: [address] [place] [address] Performed By: #### 3 4528-0, PTTAC #### [facility] IA [id number] [address] [place] [address] [place] Platelet mean volume (Bld) [Entitic vol] 10.5 fL Normal 9.0-12.7 [facility] Comment on above: Order Comment: Speci men Type: BLOOD SPECIMEN Ordering Facility: [facility] Address: [address] [place] [address] Performed By: #### 3 4528-0, PTTAC #### [facility] IA [id number] [address] [place] [address] [place] Platelets (Bld) [#/Vol] 158 10*3/uL Normal 150-400 [facility] Comment on above: Order Comment: Speci men Type: BLOOD SPECIMEN Ordering Facility: [facility] Address: [address] [place] [address] Performed By: #### 3 4528-0, PTTAC #### [facility] IA [id number] [address] [place] [address] [place] RBC (Bld) [#/Vol] 2.63 10*6/uL Low 4.20-6.00 [facility] Comment on above: Order Comment: Speci men Type: BLOOD SPECIMEN Ordering Facility: [facility] Address: [address] [place] [address] Performed By: #### 3 4528-0, PTTAC #### [facility] CLIA [id number] [address] [place] [address] [place] WBC (Bld) [#/Vol] 5.25 10*3/uL Normal 3.70-11.00 [facility] Comment on above: Order Comment: Speci men Type: BLOOD SPECIMEN Ordering Facility: [facility] Address: [address] [place] [address] Performed By: #### 3 4528-0, PTTAC #### [facility] IA [id number] [address] [place] [address] [place] Erythrocyte distribution width (RBC) [Ratio] 22.5 % High 11.5-15.0 [facility] Comment on above: Order Comment: Speci men Type: BLOOD SPECIMEN Ordering Facility: [facility] Address: [address] [place] [address] Performed By: #### P TTAC #### [facility] IA [id number] [address] [place] Hematocrit (Bld) [Volume fraction] 28.8 % Low 39.0-51.0 [facility] Comment on above: Order Comment: Speci men Type: BLOOD SPECIMEN Ordering Facility: [facility] Address: [address] [place] [address] Performed By: #### P TTAC #### [facility] IA [id number] [address] [place] [address] [place] Hemoglobin (Bld) [Mass/Vol] 8.4 g/dL Low 13.0-17.0 [facility] Comment on above: Order Comment: Speci men Type: BLOOD SPECIMEN Ordering Facility: [facility] Address: [address] [place] [address] Performed By: #### P TTAC #### [facility] CLIA [id number] [address] [place] MCH (RBC) [Entitic mass] 30.2 pg Normal 26.0-34.0 [facility] Comment on above: Order Comment: Speci men Type: BLOOD SPECIMEN Ordering Facility: [facility] Address: [address] [place] [address] Performed By: #### P TTAC #### [facility] IA [id number] [address] [place] MCHC (RBC) [Mass/Vol] 29.2 g/dL Low 30.5-36.0 [facility] Comment on above: Order Comment: Speci men Type: BLOOD SPECIMEN Ordering Facility: [facility] Address: [address] [place] [address] Performed By: #### P TTAC #### [facility] IA [id number] [address] [place] [address] [place] MCV (RBC) [Entitic vol] 103.6 fL High 80.0-100.0 [facility] Comment on above: Order Comment: Speci men Type: BLOOD SPECIMEN Ordering Facility: [facility] Address: [address] [place] [address] Performed By: #### P TTAC #### [facility] IA [id number] [address] [place] [address] [place] Nucleated RBC (Bld) [#/Vol] 0.03 10*3/uL High <0.01 [facility] Comment on above: Order Comment: Speci men Type: BLOOD SPECIMEN Ordering Facility: [facility] Address: [address] [place] [address] Performed By: #### P TTAC #### [facility] IA [id number] [address] [place] [address] [place] Platelet mean volume (Bld) [Entitic vol] 10.6 fL Normal 9.0-12.7 [facility] Comment on above: Order Comment: Speci men Type: BLOOD SPECIMEN Ordering Facility: [facility] Address: [address] [place], [place] [id number] Performed By: #### P TTAC #### [facility] CLIA [id number] [address] [facility] [place] [address] [facility] [place] Platelets (Bld) [#/Vol] 160 10*3/uL Normal 150-400 [facility] Comment on above: Order Comment: Speci men Type: BLOOD SPECIMEN Ordering Facility: [facility] Address: [address] [place] [address] Performed By: #### P TTAC #### [facility] CLIA [id number] [address] [place] [address] [place] RBC (Bld) [#/Vol] 2.78 10*6/uL Low 4.20-6.00 [facility] Comment on above: Order Comment: Speci men Type: BLOOD SPECIMEN Ordering Facility: [facility] Address: [address] [place] [address] Performed By: #### P TTAC #### [facility] CLIA [id number] [address] [facility] [place] [address] [place] WBC (Bld) [#/Vol] 6.32 10*3/uL Normal 3.70-11.00 [facility] Comment on above: Order Comment: Speci men Type: BLOOD SPECIMEN Ordering Facility: [facility] Address: [address] [place] [address] Performed By: #### P TTAC #### [facility] IA [id number] [address] [facility] [place] [address] [facility] [place] CONSULTon 05-07-2024 CONSULT HNO ID: [id number] Author: SWATHI DE LOS SANTOS MD Service: [...] male followed by Dr Liang Brady at [facility] with h/o severe ICM (LV EF [...] yesterday from outpatient echo lab at [facility] to ER due for generalized weakness [...] iron. Denies melena. His NT Pro BNP 53893. CXR: left pleural effusions. He was tested +Guaiac on admission PAST MEDICAL HISTORY 09/03/2022: Carotid stenosis, asymptomatic, bilateral No date: Chronic back pain Comment: stenosis of the back 09/03/2022: Chronic 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) No date: Dyslipidemia No date: GERD (gastroesophageal reflux disease) No date: Heart failure, acute systolic (HCC) No date: Hypertension No date: Hypothyroid No date: Myocardial infarct, old No date: Occlusion and stenosis of carotid artery without mention of cerebral infarction 2020: Prostate cancer (HCC) 11/17/2012: PVD (peripheral vascular disease) ([facility]) 09/03/2022: Stroke (cerebrum) ([facility]) No date: Systolic heart failure ([facility]) No date: Thyroid disorder 04/26/2023: 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 kidney disease, unspecified CKD stage, unspecified whether oil heaterman insulin use ([facility]) 04/28/2012: Ventricular tachycardia ([facility]) PAST SURGICAL HISTORY 2012: ANGIOGRAPHY, EXT CAROTID; [...] Take 1,000 Units by mouth as needed. VALVE INSERTER THYROID 15 mg tablet 05/05/2024 Yes Yes [...] 10 mg by (more content not included)... Normal [facility] CONSULT HNO ID: [id number] Author: CARLOS HOUSER APRN.CNP Service: Gastroenterology Author [...] Patient reports having OP ECHO done at [facility] yesterday, noted to be more weak, family [...] artery disease involving coronary bypass graft of pechanga heart without angina pectoris (POA: Yes) #Systolic heart failure (HCC) (POA: Yes) #S/P CABG (coronary artery bypass graft) (POA: Yes) #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 kidney disease, unspecified CKD stage, unspecified whether oil heaterman insulin use (HCC) (POA: Yes) #Stage 3b [...] (more content not included)... Normal [facility] Ferritin SerPl-ncon 2023 Ferritin [Mass/Vol] 804.6 ng/mL High 30.3-565.7 [facility] Comment on above: Order Comment: Speci men Type: BLOOD SPECIMEN Ordering Facility: [facility] Address: [address] [place] [address] Performed By: #### L [id number] #### [facility] CLIA [id number] [address] [facility] [place] [address] [place] Iron and Iron binding capaci ty panelon 05-07-2024 Iron [Mass/Vol] 56 ug/dL Normal 41-186 [facility] Comment on above: Order Comment: Speci men Type: BLOOD SPECIMEN Ordering Facility: [facility] Address: [address] [place] [address] Performed By: #### L [id number] #### [facility] CLIA [id number] [address] [place] [address] [place] Iron binding capacity [Mass/Vol] 239 ug/dL Normal 232-386 [facility] Comment on above: Order Comment: Speci men Type: BLOOD SPECIMEN Ordering Facility: [facility] Address: [address] [place] [address] Performed By: #### L [id number] #### [facility] CLIA [id number] [place] [address] [place] [address] [place] Iron/TIBC [Molar ratio] 23.4 % Normal 15.0-57.0 [facility] Comment on above: Order Comment: Speci men Type: BLOOD SPECIMEN Ordering Facility: [facility] Address: [address] [place] [address] Performed By: #### L [id number] #### [facility] IA [id number] [address] [place] [address] [place] Magnesium SerPl-mCncon 05-07 Magnesium [Mass/Vol] 2.4 mg/dL High 1.7-2.3 [facility] Comment on above: Order Comment: Speci men Type: BLOOD SPECIMEN Ordering Facility: [facility] Address: [address] [place] [address] Performed By: #### L [id number] #### [facility] IA [id number] [address] [place], [place] [id number] [place] PT panel Coag (PPP)on 2023 INR Coag (PPP) [Relative time] 1.4 {INR} High 0.9-1.3 [facility] Comment on above: Order Comment: Speci men Type: BLOOD SPECIMEN Ordering Facility: [facility] Address: [address] [place] [id number] Result Comment: Loulou min K Antagonist (VKA) Therapeutic Range: INR 2 to 3 (Target INR of 2.5) Note: For patients treated with VKA drugs, such as warfarin, the [place] [employer] 2012 Guideline recommends [...] to 3.5 (target INR of 3). Olamide CHAUHAN, et al. Chest 2012, 141:7S-47S Javier RA, et al. [facility] 2017, 70: 252-289 Performed By: #### 3 4528-0, PTTAC #### [facility] CLIA [id number] [address] [place] [address] [place] PT Coag (PPP) [Time] 14.9 s High 9.7-13.0 [facility] Comment on above: Order Comment: Speci men Type: BLOOD SPECIMEN Ordering Facility: [facility] Address: [address] [place] [address] Performed By: #### 3 4528-0, PTTAC #### [facility] CLIA [id number] [address] [place] [address] [place] PTT, ANTICOAGULANT THERAPYon 05-07-2024 aPTT Coag (PPP) [Time] 76.0 s High 23.0-32.4 [facility] Comment on above: Order Comment: Speci men Type: BLOOD SPECIMEN Ordering Facility: [facility] Address: [address] [place] [address] Performed By: #### 3 4528-0, PTTAC #### [facility] CLIA [id number] [address] [place] [address] [place] aPTT Coag (PPP) [Time] 30.8 s Normal 23.0-32.4 [facility] Comment on above: Order Comment: Speci men Type: BLOOD SPECIMEN Ordering Facility: [facility] Address: [address] [place] [address] Performed By: #### 3 4528-0, PTTAC #### [facility] CLIA [id number] [address] [facility] THERAPY NTon 05-07-2024 THERAPY NT HNO ID: [id number] Author: JENNY JULIEN, OTR/L Service: Occupational Therapy Author Type: Occupational Therapist Type: Therapy (PT/OT/Speech/Resp) Filed: 05/07/2024 15:43 Note Text: Occupational Therapy consult received. Chart reviewed and spoke with TIMA Walker who reports no acute care OT needs are identified at this time. Current nursing and PT 6 clicks score is 24. Plan to d/c OT consult. Normal [facility] THERAPY NT HNO ID: [id number] Author: ADRIANA BLACKMAN, PT, DPT Service: Physical Therapy Author Type: Physical Therapist Type: Therapy (PT/OT/Speech/Resp) Filed: 05/07/2024 14:14 Note Text: Physical Therapy Evaluation Summary SERVICE DATE: 05/07/2024 SERVICE TIME: 1111 to 1204 ROOM: [place] [address] PT 6 Clicks Score: 24 DISCHARGE RECOMMENDATIONS Outpatient PT Recommended Discharge Disposition Comments: Recommend continued outpt cardiac rehab. pt may pursue outpt PT for core/generalized strengthening, as well as further gait training once DC'd from cardiac rehab. Rec continued ambulation multiple times per day both during remainder of hospital stay, as well as at DC. Rec use of WW at DC. 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 Reports distance pt able to ambulate has [...] Reduced mobility-other TREATMENT INTERVENTIONS Evaluation, Gait Training (76673), Therapeutic Activity (78834) Timed Code Treatment (minutes): 38 Skilled Treatment [...] therefore, use of WW is recommended at [place]. Gait Device: Wheeled Walker General Deviations/Observations: Dolores [...] (more content not included)... Normal [facility] CBC W Auto Differential pane l (Bld)on 05-06-2024 Basophils (Bld) [#/Vol] 0.04 10*3/uL Normal <0.11 [facility] Comment on above: Order Comment: Speci men Type: BLOOD SPECIMEN Ordering Facility: [facility] Address: [address] [place] [address] Performed By: #### P TTAC #### [facility] CLIA [id number] [address] [facility] [place] [address] [place] Basophils/100 WBC (Bld) 0.6 % Normal [facility] Comment on above: Order Comment: Speci men Type: BLOOD SPECIMEN Ordering Facility: [facility] Address: [address] [place] [address] Performed By: #### P TTAC #### [facility] CLIA [id number] [address] [place] [address] [place] Differential cell count method Nom (Bld) Auto Normal [facility] Comment on above: Order Comment: Speci men Type: BLOOD SPECIMEN Ordering Facility: [facility] Address: [address] [place] [address] Performed By: #### P TTAC #### [facility] IA [id number] [address] [place] [address] [place] Eosinophils (Bld) [#/Vol] 0.07 10*3/uL Normal <0.46 [facility] Comment on above: Order Comment: Speci men Type: BLOOD SPECIMEN Ordering Facility: [facility] Address: [address] [place] [address] Performed By: #### P TTAC #### [facility] IA [id number] [place] Eosinophils/100 WBC (Bld) 1.1 % Normal [facility] Comment on above: Order Comment: Speci men Type: BLOOD SPECIMEN Ordering Facility: [facility] Address: [address] [place] [address] Performed By: #### P TTAC #### [facility] IA [id number] [place] Erythrocyte distribution width (RBC) [Ratio] 22.2 % High 11.5-15.0 [facility] Comment on above: Order Comment: Speci men Type: BLOOD SPECIMEN Ordering Facility: [facility] Address: [address] [place] [address] Performed By: #### P TTAC #### [facility] [place] [id number] [address] [place] [id number] [place] Hematocrit (Bld) [Volume fraction] 29.6 % Low 39.0-51.0 [facility] Comment on above: Order Comment: Speci men Type: BLOOD SPECIMEN Ordering Facility: [facility] Address: [address] [place] [address] Performed By: #### P TTAC #### [facility] IA [id number] [address] [place] [id number] [place] Hemoglobin (Bld) [Mass/Vol] 8.8 g/dL Low 13.0-17.0 [facility] Comment on above: Order Comment: Speci men Type: BLOOD SPECIMEN Ordering Facility: [facility] Address: [address] [place] [address] Performed By: #### P TTAC #### [facility] [place] [id number] [address] [facility] [place] [address] [place] Immature granulocytes (Bld) [#/Vol] 0.03 10*3/uL Normal <0.10 [facility] Comment on above: Order Comment: Speci men Type: BLOOD SPECIMEN Ordering Facility: [facility] Address: [address] [place] [address] Performed By: #### P TTAC #### [facility] [place] [id number] [address] [place] [address] [place] Immature granulocytes/100 WBC (Bld) 0.5 % Normal [facility] Comment on above: Order Comment: Speci men Type: BLOOD SPECIMEN Ordering Facility: [facility] Address: [address] [place] [address] Performed By: #### P TTAC #### [facility] IA [id number] [address] [place] [address] [place] Lymphocytes (Bld) [#/Vol] 1.05 10*3/uL Normal 1.00-4.00 [facility] Comment on above: Order Comment: Speci men Type: BLOOD SPECIMEN Ordering Facility: [facility] Address: [address] [place] [address] Performed By: #### P TTAC #### [facility] IA [id number] [address] [facility] [place] [address] [place] Lymphocytes/100 WBC (Bld) 16.1 % Normal [facility] Comment on above: Order Comment: Speci men Type: BLOOD SPECIMEN Ordering Facility: [facility] Address: [address] [place] [address] Performed By: #### P TTAC #### [facility] IA [id number] [address] [place] MCH (RBC) [Entitic mass] 30.0 pg Normal 26.0-34.0 [facility] Comment on above: Order Comment: Speci men Type: BLOOD SPECIMEN Ordering Facility: [facility] Address: [address] [place] [address] Performed By: #### P TTAC #### [facility] CLIA [id number] [place] MCHC (RBC) [Mass/Vol] 29.7 g/dL Low 30.5-36.0 [facility] Comment on above: Order Comment: Speci men Type: BLOOD SPECIMEN Ordering Facility: [facility] Address: [address] [place] [address] Performed By: #### P TTAC #### [facility] [place] [id number] [address] [place] [address] [place] MCV (RBC) [Entitic vol] 101.0 fL High 80.0-100.0 [facility] Comment on above: Order Comment: Speci men Type: BLOOD SPECIMEN Ordering Facility: [facility] Address: [address] [place] [address] Performed By: #### P TTAC #### [facility] [place] [id number] [address] [place] [address] [place] Monocytes (Bld) [#/Vol] 0.56 10*3/uL Normal <0.87 [facility] Comment on above: Order Comment: Speci men Type: BLOOD SPECIMEN Ordering Facility: [facility] Address: [address] [place] [address] Performed By: #### P TTAC #### [facility] CLIA [id number] [address] [place] [address] Monocytes/100 WBC (Bld) 8.6 % Normal [facility] Comment on above: Order Comment: Speci men Type: BLOOD SPECIMEN Ordering Facility: [facility] Address: [address] [place] [address] Performed By: #### P TTAC #### [facility] CLIA [id number] [address] [place] [address] [place] Neutrophils (Bld) [#/Vol] 4.77 10*3/uL Normal 1.45-7.50 [facility] Comment on above: Order Comment: Speci men Type: BLOOD SPECIMEN Ordering Facility: [facility] Address: [address] [place] [address] Performed By: #### P TTAC #### [facility] IA [id number] [address] [place] [address] [place] Neutrophils/100 WBC (Bld) 73.1 % Normal [facility] Comment on above: Order Comment: Speci men Type: BLOOD SPECIMEN Ordering Facility: [facility] Address: [address] [place] [address] Performed By: #### P TTAC #### [facility] IA [id number] [address] [place] [address] [place] Nucleated RBC (Bld) [#/Vol] 0.02 10*3/uL High <0.01 [facility] Comment on above: Order Comment: Speci men Type: BLOOD SPECIMEN Ordering Facility: [facility] Address: [address] [place] [address] Performed By: #### P TTAC #### [facility] IA [id number] [address] [place] [address] [place] Nucleated RBC/100 WBC (Bld) [Ratio] 0.3 /100 WBC Normal [facility] Comment on above: Order Comment: Speci men Type: BLOOD SPECIMEN Ordering Facility: [facility] Address: [address] [place] [address] Performed By: #### P TTAC #### [facility] IA [id number] [address] [place] [id number] [place] Platelet mean volume (Bld) [Entitic vol] 10.8 fL Normal 9.0-12.7 [facility] Comment on above: Order Comment: Speci men Type: BLOOD SPECIMEN Ordering Facility: [facility] Address: [address] [place] [address] Performed By: #### P TTAC #### [facility] IA [id number] [address] [place] [address] [place] Platelets (Bld) [#/Vol] 194 10*3/uL Normal 150-400 [facility] Comment on above: Order Comment: Speci men Type: BLOOD SPECIMEN Ordering Facility: [facility] Address: [address] [place] [address] Performed By: #### P TTAC #### [facility] IA [id number] [address] [place] [address] [place] RBC (Bld) [#/Vol] 2.93 10*6/uL Low 4.20-6.00 [facility] Comment on above: Order Comment: Speci men Type: BLOOD SPECIMEN Ordering Facility: [facility] Address: [address] [place] [address] Performed By: #### P TTAC #### [facility] IA [id number] [address] [place] [address] [place] WBC (Bld) [#/Vol] 6.52 10*3/uL Normal 3.70-11.00 [facility] Comment on above: Order Comment: Speci men Type: BLOOD SPECIMEN Ordering Facility: [facility] Address: [address] [place] [address] Performed By: #### P TTAC #### [facility] IA [id number] [address] [place] [address] [place] CNPNon 05-06-2024 CNPN Normal [facility] Comprehensive metabolic 2000 panelon 05-06-2024 Albumin [Mass/Vol] 3.6 g/dL Low 3.9-4.9 [facility] Comment on above: Order Comment: Speci men Type: BLOOD SPECIMEN Ordering Facility: [facility] Address: [address] [place] [address] Performed By: #### 2 4323-8, 33340-9, 88983-8 #### [facility] IA [id number] [address] [place] [address] [place] ALP [Catalytic activity/Vol] 92 U/L Normal 38-113 [facility] Comment on above: Order Comment: Speci men Type: BLOOD SPECIMEN Ordering Facility: [facility] Address: [address] [place], [place] [address] Performed By: #### 2 4323-8, 86040-5, 63928-3 #### [facility] CLIA [id number] [place] [address] [place] ALT [Catalytic activity/Vol] 12 U/L Normal 10-54 [facility] Comment on above: Order Comment: Speci men Type: BLOOD SPECIMEN Ordering Facility: [facility] Address: [address] [place] [address] Performed By: #### 2 4323-8, 79792-2, 81293-0 #### [facility] CLIA [id number] [address] [place] [address] [place] Anion gap [Moles/Vol] 13 mmol/L Normal 8-15 [facility] Comment on above: Order Comment: Speci men Type: BLOOD SPECIMEN Ordering Facility: [facility] Address: [address] [place] [address] Performed By: #### 2 4323-8, , 29483-9 #### [facility] CLIA [id number] [place] [address] [place] AST [Catalytic activity/Vol] 24 U/L Normal 14-40 [facility] Comment on above: Order Comment: Speci men Type: BLOOD SPECIMEN Ordering Facility: [facility] Address: [address] [place] [address] Performed By: #### 2 4323-8, 82217-6, 62637-3 #### [facility] CLIA [id number] [address] [place] [address] [place] Bilirubin [Mass/Vol] 0.8 mg/dL Normal 0.2-1.3 [facility] Comment on above: Order Comment: Speci men Type: BLOOD SPECIMEN Ordering Facility: [facility] Address: [address] [place] [address] Performed By: #### 2 4323-8, 23790-7, 54143-3 #### [facility] CLIA [id number] [address] [place] [address] [place] Calcium [Mass/Vol] 9.1 mg/dL Normal 8.5-10.2 [facility] Comment on above: Order Comment: Speci men Type: BLOOD SPECIMEN Ordering Facility: [facility] Address: [address] [place] [address] Performed By: #### 2 4323-8, 42555-1, 29094-6 #### [facility] CLIA [id number] [address] [place] [address] [place] Chloride [Moles/Vol] 103 mmol/L Normal 98-107 [facility] Comment on above: Order Comment: Speci men Type: BLOOD SPECIMEN Ordering Facility: [facility] Address: [address] [place] [address] Performed By: #### 2 4323-8, 86055-5, 99582-4 #### [facility] CLIA [id number] [address] [place] [address] [place] CO2 [Moles/Vol] 24 mmol/L Normal 22-30 [facility] Comment on above: Order Comment: Speci men Type: BLOOD SPECIMEN Ordering Facility: [facility] Address: [address] [place] [address] Performed By: #### 2 4323-8, 46953-9, 19078-9 #### [facility] CLIA [id number] [address] [place] [address] [place] Creatinine [Mass/Vol] 2.07 mg/dL High 0.73-1.22 [facility] Comment on above: Order Comment: Speci men Type: BLOOD SPECIMEN Ordering Facility: [facility] Address: [address] [place] [address] Performed By: #### 2 4323-8, 88966-7, 93589-0 #### [facility] CLIA [id number] [address] [facility] [place] [address] [place] Creatinine and Glomerular filtration rate.predicted panel (S/P/Bld) 31 mL/min/1.73m??? Low >=60 [facility] Comment on above: Order Comment: Dylan olvera Type: BLOOD SPECIMEN Ordering Facility: [facility] Address: [address] [place] [address] Result Comment: Etta mated Glomerular Filtration Rate [...] actual GFR. Performed By: #### 2 4323-8, 93977-0, 77559-8 #### [facility] CLIA [id number] [address] [facility] [place] [address] [place] Glucose [Mass/Vol] 105 mg/dL High 74-99 [facility] Comment on above: Order Comment: Dylan olvera Type: BLOOD SPECIMEN Ordering Facility: [facility] Address: [address] [place] [address] Result Comment: The [place] [employer] (ADA) provides guidance for cutoff [...] Standards of Medical Care in Diabetes 2016, [place] [employer]. Diabetes Care. 2016.39(Suppl 1). Performed By: #### 2 4323-8, 13848-9, 26906-5 #### [facility] CLIA [id number] [address] [facility] [address] [place] Potassium [Moles/Vol] 4.1 mmol/L Normal 3.7-5.1 [facility] Comment on above: Order Comment: Speci men Type: BLOOD SPECIMEN Ordering Facility: [facility] Address: [address] [place], [place] [address] Performed By: #### 2 4323-8, 95123-0, 85559-8 #### [facility] CLIA [id number] [address] [place] [address] [place] Protein [Mass/Vol] 6.2 g/dL Low 6.3-8.0 [facility] Comment on above: Order Comment: Speci men Type: BLOOD SPECIMEN Ordering Facility: [facility] Address: [address] [place], [place] [address] Performed By: #### 2 4323-8, , 58435-6 #### [facility] CLIA [id number] [address] [place] [address] [place] Sodium [Moles/Vol] 140 mmol/L Normal 136-144 [facility] Comment on above: Order Comment: Speci men Type: BLOOD SPECIMEN Ordering Facility: [facility] Address: [address] [place], [place] [address] Performed By: #### 2 4323-8, , 22639-4 #### [facility] CLIA [id number] [address] [place] [address] [place] Urea nitrogen [Mass/Vol] 40 mg/dL High 9-24 [facility] Comment on above: Order Comment: Speci men Type: BLOOD SPECIMEN Ordering Facility: [facility] Address: [address] [place] [address] Performed By: #### 2 4323-8, 77602-3, 95429-6 #### [facility] CLIA [id number] [address] [place] [address] [place] ECG COMPLETEon 05-06-2024 ECG COMPLETE Ventricular Rate : 6 9 BPM Atrial Rate : 0 BPM QRS Duration : 126 ms Q-T Interval : 429 ms QTC Calculation(Bazett) : 460 ms Calculated R [place] : -14 degrees Calculated T [place] : 158 degrees Atrial fibrillation Paired ventricular premature complexes Nonspecific intraventricular conduction delay Repol abnrm suggests ischemia, lateral leads Abnormal ECG 1829 NO STEMI Confirmed by DO OSWALD JOSEPH ([id number]), videotape editor MULU GARDUNO ([id number]) on 05/07/2024 8:20:07 AM NAME : JOSÉ MIGUEL ANTONIO PID : [id number] : 1940 Gender : Male Race : ORD : [id number] Procedure Date : May 06 2024 18:28:15 Edit Date : May 07 2024 08:20:08 Diagnosis: Atrial fibrillation Paired ventricular premature complexes Nonspecific intraventricular conduction delay Repol abnrm suggests ischemia, lateral leads Abnormal ECG 1829 NO STEMI Confirmed by DO OSWALD JOSEPH ([id number]), videotape editor MULU GARDUNO ([id number]) on 05/07/2024 8:20:07 AM Test Reason : Chest Pain Location : 302 : ED AVED-3 Overread By : DO OSWALD JOSEPH Edited By : MULU GARDUNO Referred By : , Acquired by : [id number], [facility] ED NOTEon 05-06-2024 ED NOTE HNO ID: [id number] Author: ENRRIQUE PARSONS RN Service: eHospital Author Type: Registered Nurse Type: ED Notes Filed: 05/06/2024 19:13 Note Text: Report given to INOCENTE Andrade. [facility] ED NOTE HNO ID: [id number] Author: RAYMOND PALMA RN Service: Emergency Medicine Author Type: Registered Nurse Type: ED Notes Filed: 05/06/2024 19:10 Note Text: Report taken from Enrrique Castellano RN [facility] ED NOTE HNO ID: [id number] Author: DEVIKA WILEY RN Service: ? Author Type: Registered Nurse Type: ED Notes Filed: 05/06/2024 16:42 Note Text: Patient presents with c/o SANTILLAN increasing x several weeks. 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 Patient very pale in triage, takes plavix, ASA, and xarelto. Denies CP, denies SOB at rest. VSS in triage, AANDOx4. [facility] ED PROV NOTEon 05-06-2024 ED PROV NOTE HNO ID: [id number] Author: JANET OSWALD DO Service: Emergency Medicine [...] disease) No date: Heart failure, acute systolic (HCC) No date: Hypertension No date: Hypothyroid No date: Myocardial infarct, old No date: Occlusion and stenosis of carotid artery without mention of cerebral infarction 2020: Prostate cancer ([facility]) 11/17/2012: PVD (peripheral vascular disease) ([facility]) 09/03/2022: Stroke (cerebrum) ([facility]) No date: Systolic heart failure ([facility]) No date: Thyroid disorder 04/26/2023: 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 kidney disease, unspecified CKD stage, unspecified whether oil heaterman insulin use ([facility]) 04/28/2012: Ventricular tachycardia ([facility]) PAST SURGICAL HISTORY 2012: ANGIOGRAPHY, EXT CAROTID; [...] Disease Father - Heart Attack Father fatal MD at age 77 - Ischemic Heart Disease [...] 52 of MD Social History Tobacco Use - Smoking status: [...] (more content not included)... Normal [facility] ED Triage Noteon 05-06-2024 ED Triage Note HNO ID: [id number] Author: JENNY ALARCON MD Service: Emergency Medicine [...] SIGNATURE: Jenny Alarcon MD Normal [facility] HIGH SENSITIVITY TROPONIN T (INITIAL)on 05-06-2024 Troponin T.cardiac High sensitivity method [Mass/Vol] 45 ng/L High <[address] [place] [address] Comment on above: Order Comment: Dylan olvera Type: BLOOD SPECIMEN Ordering Facility: [facility] Address: [address] [place] [address] Performed By: #### L [id number] #### [facility] CLIA [id number] [address] [facility] [place] [address] [place] HIGH SENSITIVITY TROPONIN T (SECOND)on 05-06-2024 Troponin T.cardiac High sensitivity method [Mass/Vol] 43 ng/L High <[address] [place] [address] Comment on above: Order Comment: Dylan olvera Type: BLOOD SPECIMEN Ordering Facility: [facility] Address: [address] [place] [address] Performed By: #### 3 4528-0, PTTAC #### [facility] CLIA [id number] [address] [facility] [place] [address] [facility] HIGH SENSITIVITY TROPONIN T (THIRD) 3 HRS AFTER INITIALon 05-06-2024 Troponin T.cardiac High sensitivity method [Mass/Vol] 45 ng/L High <12 [facility] Comment on above: Order Comment: Speci men Type: BLOOD SPECIMEN Ordering Facility: [facility] Address: [facility] [place] [address] Performed By: #### L [id number] #### [facility] CLIA [id number] [address] [facility] [place] [address] [facility] HISTORY PHYSICALon HISTORY PHYSICAL HNO ID: [id number] Author: CHERYL LEES MD Service: Hospital Medicine Author Type: Physician Type: H&P Filed: 05/06/2024 23:41 Note Text: DEPARTMENT OF HOSPITAL MEDICINE HISTORY AND PHYSICAL EXAM SERVICE DATE: 05/06/2024 SERVICE TIME: 6:57 PM Primary Care Physician: Samm Thompson MD NIGHT AND WEEKEND COVERAGE: Days: [phone], please contact via [employer] Secure Message Nights: [phone] 3rd floor: please page [facility]ist night cover #[phone] 4W: please page [facility] night cover #[phone] 5th floor: please page [facility] night cover #[phone] SDU (18:00 - 19:00): Please page #[phone] SDU (19:00 - 07:00): Please call E-Hospitalist at [phone] Subjective CHIEF COMPLAINT: generalized weakness and SANTILLAN [...] weakness and SANTILLAN. 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 No leukocytosis Hb 8.8, baseline 07-28 Electrolytes are OK BUN/Cr 40/2.07, around baseline HST 45> 43 ProBNP 87011 CXR: left pleural effusions (new compares to 02/2024) Pt has crimson colored stool that is guaiac positive. PAST MEDICAL HISTORY 09/03/2022: Carotid stenosis, asymptomatic, bilateral No date: Chronic back pain Comment: stenosis of the back 09/03/2022: Chronic 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) No date: Dyslipidemia No date: GERD (gastroesophageal reflux disease) No date: Heart failure, acute systolic ([facility]) No date: Hypertension No date: Hypothyroid No date: Myocardial infarct, old No date: Occlusion and stenosis of carotid artery without mention of cerebral infarction 2020: Prostate cancer ([facility]) 11/17/2012: PVD (peripheral vascular disease) ([facility]) 09/03/2022: Stroke (cerebrum) ([facility]) No date: Systolic heart failure ([facility]) No date: Thyroid disorder 04/26/2023: 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 kidney disease, unspecified CKD stage, unspecified whether mcc insulin use ([facility]) 04/28/2012: Ventricular tachycardia ([facility]) PAST SURGICAL HISTORY 2012: ANGIOGRAPHY, EXT CAROTID; [...] (more content not included)... Normal [facility] Magnesium SerPl-mCncon 05-06 Magnesium [Mass/Vol] 2.5 mg/dL High 1.7-2.3 [facility] Comment on above: Order Comment: Speci men Type: BLOOD SPECIMEN Ordering Facility: [facility] Address: [address] [place] [address] Performed By: #### 2 4323-8, 45819-6, 00639-9 #### [facility] CLIA [id number] [address] [facility] [place] [address] [place] NT-proBNP SerPl-mCncon 05-06 Natriuretic peptide.B prohormone N-Terminal [Mass/Vol] 86861 pg/mL High <450 [facility] Comment on above: Order Comment: Speci men Type: BLOOD SPECIMEN Ordering Facility: [facility] Address: [address] [facility] [place] [address] Performed By: #### 2 4323-8, 71842-2, 46885-8 #### [facility] CLIA [id number] [facility] [place] [place] [address] [facility] XR CHEST 2V FRONTAL/LATon XR CHEST 2V [...] New left pleural effusion with adjacent atelectasis Airbrush Artist: PSCB Transcribe Date/Time: May 06 2024 5:37P Dictated by : ROSS FULTON DO This examination was interpreted and the report reviewed and electronically signed by: ROSS FULTON DO on May 06 2024 5:38PM EST [id number] Normal [facility] CNPTOUTREACHon 04-30-2024 CNPTOUTREACH Normal [facility] CNPTOUTREACHon 04-29-2024 CNPTOUTREACH Normal [facility] CNCOon 04-14-2024 CNCO Letter Text Normal [facility] Basic metabolic 2000 panelon 04-06-2024 Anion gap [Moles/Vol] 7 mmol/L Low 8- [facility] Comment on above: Order Comment: Speci men Type: BLOOD SPECIMENOrdering Facility: [facility] Address: [address] [place] [address] Performed By: #### 2 4321-2 ####[facility] LABCLIA [id number] [place] [address] Calcium [Mass/Vol] 9.9 mg/dL Normal 8.5-10.2 [facility] Comment on above: Order Comment: Speci men Type: BLOOD SPECIMENOrdering Facility: [facility] Address: [address] [place] [address] Performed By: #### 2 4321-2 ####[facility] LABCLIA [id number] [place] [address] Chloride [Moles/Vol] 106 mmol/L Normal 98-107 [facility] Comment on above: Order Comment: Speci men Type: BLOOD SPECIMENOrdering Facility: [facility] Address: [address] [place] [address] Performed By: #### 2 4321-2 ####[facility] LABCLIA [id number] [place] [address] CO2 [Moles/Vol] 27 mmol/L Normal 22-30 [facility] Comment on above: Order Comment: Speci men Type: BLOOD SPECIMENOrdering Facility: [facility] Address: [address] [place] [address] Performed By: #### 2 4321-2 ####[facility] LABCLIA [id number] [place] [address] Creatinine [Mass/Vol] 2.02 mg/dL High 0.73-1.22 [facility] Comment on above: Order Comment: Speci men Type: BLOOD SPECIMENOrdering Facility: [facility] Address: [address] [place], [place] [address] Performed By: #### 2 4321-2 ####[facility] LABCLIA [id number] [place] [address] Creatinine and Glomerular filtration rate.predicted panel (S/P/Bld) 32 mL/min/1.73m??? Low >=60 [facility] Comment on above: Order Comment: Dylan olvera Type: BLOOD SPECIMENOrdering Facility: [facility] Address: [address] [place] [address] Result Comment: Etta mated Glomerular Filtration Rate [...] actual GFR. Performed By: #### 2 4321-2 ####[facility] LABCLIA [id number] [place] [address] Glucose [Mass/Vol] 106 mg/dL High 74-99 [facility] Comment on above: Order Comment: Dylan olvera Type: BLOOD SPECIMENOrdering Facility: [facility] Address: [address] [place] [address] Result Comment: The [place] [employer] Association (ADA) provides guidance for cutoff [...] Standards of Medical Care in Diabetes 2016, [place] [employer]. Diabetes Care. 2016.39(Suppl 1). Performed By: #### 2 4321-2 ####[facility] LABCLIA [id number] [place] [address] Potassium [Moles/Vol] 4.6 mmol/L Normal 3.7-5.1 [facility] Comment on above: Order Comment: Speci men Type: BLOOD SPECIMENOrdering Facility: [facility] Address: [address] [place], [place] [address] Performed By: #### 2 4321-2 ####[facility] LABCLIA [id number] [place] [address] Sodium [Moles/Vol] 140 mmol/L Normal 136-144 [facility] Comment on above: Order Comment: Speci men Type: BLOOD SPECIMENOrdering Facility: [facility] Address: [address] [place] [address] Performed By: #### 2 4321-2 ####[facility] LABCLIA [id number] [place] [address] Urea nitrogen [Mass/Vol] 53 mg/dL High 9-24 [facility] Comment on above: Order Comment: Speci men Type: BLOOD SPECIMENOrdering Facility: [facility] Address: [address] [place] [address] Performed By: #### 2 4321-2 ####[facility] LABCLIA [id number] [place] [address] NT-proBNP [facility] 04-06 Natriuretic peptide.B prohormone N-Terminal [Mass/Vol] 04260 pg/mL High <450 [facility] Comment on above: Order Comment: Speci men Type: BLOOD SPECIMENOrdering Facility: [facility] Address: [address] [place] [address] Performed By: #### 3 3762-6 ####[facility] LABCLIA [id number] [place] [id number] [place] CNPNon 04-03-2024 CNPN Normal [facility] CNPNon 04-01-2024 CNPN Normal [facility] CNOVon 03-31-2024 CNOV Normal [facility] Basic metabolic 2000 panelon 03-30-2024 Anion gap [Moles/Vol] 12 mmol/L Normal 8-15 [facility] Comment on above: Order Comment: Speci men Type: BLOOD SPECIMENOrdering Facility: [facility] Address: [address] [place] [id number] Performed By: #### 2 4321-2 ####[facility] LABCLIA [id number] [address] [address] [place] Calcium [Mass/Vol] 9.8 mg/dL Normal 8.5-10.2 [facility] Comment on above: Order Comment: Speci men Type: BLOOD SPECIMENOrdering Facility: [facility] Address: [address] [place], [place] [address] Performed By: #### 2 4321-2 ####[facility] LABCLIA [id number] [place] [address] [place] Chloride [Moles/Vol] 103 mmol/L Normal 98-107 [facility] Comment on above: Order Comment: Speci men Type: BLOOD SPECIMENOrdering Facility: [facility] Address: [address] [place], [place] [address] Performed By: #### 2 4321-2 ####[facility] LABCLIA [id number] [place] [address] [place] CO2 [Moles/Vol] 26 mmol/L Normal 22-30 [facility] Comment on above: Order Comment: Speci men Type: BLOOD SPECIMENOrdering Facility: [facility] Address: [address] [place], [place] [address] Performed By: #### 2 4321-2 ####[facility] LABCLIA [id number] [place] [id number] [place] Creatinine [Mass/Vol] 2.01 mg/dL High 0.73-1.22 [facility] Comment on above: Order Comment: Speci men Type: BLOOD SPECIMENOrdering Facility: [facility] Address: [address] [place], [place] [address] Performed By: #### 2 4321-2 ####[facility] LABCLIA [id number] [place] [address] [place] Creatinine and Glomerular filtration rate.predicted panel (S/P/Bld) 33 mL/min/1.73m??? Low >=60 [facility] Comment on above: Order Comment: Dylan olvera Type: BLOOD SPECIMENOrdering Facility: [facility] Address: [address] [place] [address] Result Comment: Etta mated Glomerular Filtration Rate [...] actual GFR. Performed By: #### 2 4321-2 ####[facility] LABIA [id number] [place] [address] [place] Glucose [Mass/Vol] 93 mg/dL Normal 74-99 [facility] Comment on above: Order Comment: Dylan olvera Type: BLOOD SPECIMENOrdering Facility: [facility] Address: [address] [place] [address] Result Comment: The [place] Diabetes Association (ADA) provides guidance for cutoff [...] Standards of Medical Care in Diabetes 2016, [place] [employer]. Diabetes Care. 2016.39(Suppl 1). Performed By: #### 2 4321-2 ####[facility] LABCLIA [id number] [place] [address] [place] Potassium [Moles/Vol] 5.1 mmol/L Normal 3.7-5.1 [facility] Comment on above: Order Comment: Speci men Type: BLOOD SPECIMENOrdering Facility: [facility] Address: [address] [place] [address] Performed By: #### 2 4321-2 ####[facility] LABCLIA [id number] [place] [address] [place] Sodium [Moles/Vol] 141 mmol/L Normal 136-144 [facility] Comment on above: Order Comment: Speci men Type: BLOOD SPECIMENOrdering Facility: [facility] Address: [address] [place] [address] Performed By: #### 2 4321-2 ####[facility] LABCLIA [id number] [place] [address] [place] Urea nitrogen [Mass/Vol] 29 mg/dL High 9-24 [facility] Comment on above: Order Comment: Speci men Type: BLOOD SPECIMENOrdering Facility: [facility] Address: [address] [place] [address] Performed By: #### 2 4321-2 ####[facility] LABCLIA [id number] [place] [address] [place] CNOVon 03-30-2024 CNOV Normal [facility] CNPNon 03-30-2024 CNPN Normal [facility] ECG COMPLETEon 03-30-2024 ECG COMPLETE Normal [facility] Basic metabolic 2000 panelon 03-24-2024 Anion gap [Moles/Vol] 9 mmol/L Normal 8-15 [facility] Comment on above: Order Comment: Speci men Type: BLOOD SPECIMENOrdering Facility: [facility] Address: [address] [place] [address] Performed By: #### 2 4321-2 ####[facility] LABCLIA [id number] [place] [address] Calcium [Mass/Vol] 10.0 mg/dL Normal 8.5-10.2 [facility] Comment on above: Order Comment: Speci men Type: BLOOD SPECIMENOrdering Facility: [facility] Address: [address] [place] [address] Performed By: #### 2 4321-2 ####[facility] LABCLIA [id number] [place] [address] Chloride [Moles/Vol] 104 mmol/L Normal 98-107 [facility] Comment on above: Order Comment: Speci men Type: BLOOD SPECIMENOrdering Facility: [facility] Address: [address] [place] [address] Performed By: #### 2 4321-2 ####[facility] LABCLIA [id number] [place] [address] CO2 [Moles/Vol] 28 mmol/L Normal 22-30 [facility] Comment on above: Order Comment: Speci men Type: BLOOD SPECIMENOrdering Facility: [facility] Address: [address] [place] [address] Performed By: #### 2 4321-2 ####[facility] LABCLIA [id number] [place] [address] Creatinine [Mass/Vol] 2.29 mg/dL High 0.73-1.22 [facility] Comment on above: Order Comment: Speci men Type: BLOOD SPECIMENOrdering Facility: [facility] Address: [address] [place] [address] Performed By: #### 2 4321-2 ####[facility] LABCLIA [id number] [place] [address] Creatinine and Glomerular filtration rate.predicted panel (S/P/Bld) 28 mL/min/1.73m??? Low >=60 [facility] Comment on above: Order Comment: Speci men Type: BLOOD SPECIMENOrdering Facility: [facility] Address: [address] [place] [address] Result Comment: Etta mated Glomerular Filtration Rate [...] actual GFR. Performed By: #### 2 4321-2 ####[facility] LABCLIA [id number] [place] [address] Glucose [Mass/Vol] 109 mg/dL High 74-99 [facility] Comment on above: Order Comment: Speci men Type: BLOOD SPECIMENOrdering Facility: [facility] Address: [address] [place] [address] Result Comment: The [place] Diabetes Association (ADA) provides guidance for cutoff [...] Standards of Medical Care in Diabetes 2016, [place] [employer]. Diabetes Care. 2016.39(Suppl 1). Performed By: #### 2 4321-2 ####[facility] LABCLIA [id number] [place] [address] Potassium [Moles/Vol] 4.7 mmol/L Normal 3.7-5.1 [facility] Comment on above: Order Comment: Rozi men Type: BLOOD SPECIMENOrdering Facility: [facility] Address: [address] [place] [address] Performed By: #### 2 4321-2 ####[facility] LABCLIA [id number] [place] [address] Sodium [Moles/Vol] 141 mmol/L Normal 136-144 [facility] Comment on above: Order Comment: Speci men Type: BLOOD SPECIMENOrdering Facility: [facility] Address: [address] [place] [address] Performed By: #### 2 4321-2 ####[facility] LABCLIA [id number] [place] [address] Urea nitrogen [Mass/Vol] 31 mg/dL High 9-24 [facility] Comment on above: Order Comment: Speci men Type: BLOOD SPECIMENOrdering Facility: [facility] Address: [address] [place] [address] Performed By: #### 2 4321-2 ####[facility] LABCLIA [id number] [place] [address] CBC panel Auto (Bld)on 03-24 Erythrocyte distribution width (RBC) [Ratio] 18.8 % High 11.5-15.0 [facility] Comment on above: Order Comment: Speci men Type: BLOOD SPECIMENOrdering Facility: [facility] Address: [address] [place] [address] Performed By: #### 5 8410-2 ####[facility] LABIA [id number] [place] [address] Hematocrit (Bld) [Volume fraction] 37.7 % Low 39.0-51.0 [facility] Comment on above: Order Comment: Speci men Type: BLOOD SPECIMENOrdering Facility: [facility] Address: [address] [place] [address] Performed By: #### 5 8410-2 ####[facility] LABCLIA [id number] [place] [address] Hemoglobin (Bld) [Mass/Vol] 11.3 g/dL Low 13.0-17.0 [facility] Comment on above: Order Comment: Speci men Type: BLOOD SPECIMENOrdering Facility: [facility] Address: [address] [place] [address] Performed By: #### 5 8410-2 ####[facility] LABCLIA [id number] [place] [address] MCH (RBC) [Entitic mass] 27.6 pg Normal 26.0-34.0 [facility] Comment on above: Order Comment: Speci men Type: BLOOD SPECIMENOrdering Facility: [facility] Address: [address] [place] [address] Performed By: #### 5 8410-2 ####[facility] LABCLIA [id number] [place] [address] MCHC (RBC) [Mass/Vol] 30.0 g/dL Low 30.5-36.0 [facility] Comment on above: Order Comment: Speci men Type: BLOOD SPECIMENOrdering Facility: [facility] Address: [address] [place] [address] Performed By: #### 5 8410-2 ####[facility] LABIA [id number] [place] [address] MCV (RBC) [Entitic vol] 92.0 fL Normal 80.0-100.0 [facility] Comment on above: Order Comment: Speci men Type: BLOOD SPECIMENOrdering Facility: [facility] Address: [address] [place] [address] Performed By: #### 5 8410-2 ####[facility] LABIA [id number] [place] [address] Nucleated RBC (Bld) [#/Vol] 10*3/uL Normal <0.01 [facility] Comment on above: Order Comment: Speci men Type: BLOOD SPECIMENOrdering Facility: [facility] Address: [address] [place] [address] Performed By: #### 5 8410-2 ####[facility] LABCLIA [id number] [place] [address] Platelet mean volume (Bld) [Entitic vol] 9.4 fL Normal 9.0-12.7 [facility] Comment on above: Order Comment: Speci men Type: BLOOD SPECIMENOrdering Facility: [facility] Address: [address] [place] [address] Performed By: #### 5 8410-2 ####[facility] LABCLIA [id number] [place] [address] Platelets (Bld) [#/Vol] 162 10*3/uL Normal 150-400 [facility] Comment on above: Order Comment: Speci men Type: BLOOD SPECIMENOrdering Facility: [facility] Address: [address] [place] [address] Performed By: #### 5 8410-2 ####[facility] LABIA [id number] [place] [address] RBC (Bld) [#/Vol] 4.10 10*6/uL Low 4.20-6.00 [facility] Comment on above: Order Comment: Speci men Type: BLOOD SPECIMENOrdering Facility: [facility] Address: [address] [place] [address] Performed By: #### 5 8410-2 ####[facility] LABIA [id number] [place] [address] WBC (Bld) [#/Vol] 5.95 10*3/uL Normal 3.70-11.00 [facility] Comment on above: Order Comment: Speci men Type: BLOOD SPECIMENOrdering Facility: [facility] Address: [address] [place] [address] Performed By: #### 5 8410-2 ####[facility] LABIA [id number] [place] [address] PSA [facility]24 Prostate specific Ag [Mass/Vol] ng/mL Normal <2.60 [facility] Comment on above: Order Comment: Speci men Type: BLOOD SPECIMENOrdering Facility: [facility] Address: [address] [place] [address] Result Comment: Tota l PSA test methodology used is the Electrochemiluminescence Immunoassay by [employer]. Total PSA values by differing methodologies cannot be interchanged. Performed By: #### 2 857-1 ####[facility] LABCLIA [id number] [place] [place] [address] [place] TESTOSTERONE, FREE AND TOTAL on 03-24-2024 TESTOSTERONE, FREE, S 1.46 ng/dL Low 2.88-10.5 [facility] Comment on above: Order Comment: Speci men Type: BLOOD SPECIMENOrdering Facility: [facility] Address: [address] [place] [address] Result Comment: ---- ADDITIONAL INFORMATION This test was developed and its performance characteristicsdetermined by [facility] in a manner consistent with CLIArequirements. This test has not been cleared or approved bythe U.S. Food and Drug Administration. Performed By: #### T FTEST ####[facility] LABCLIA [id number] [place] [address] TESTOSTERONE, TOTAL, S 80 ng/dL Low 240-950 [facility] Comment on above: Order Comment: Speci men Type: BLOOD SPECIMENOrdering Facility: [facility] Address: [address] [place], [place] [address] [address] Result Comment: ---- ADDITIONAL INFORMATION Testing performed by Liquid Chromatography-Tandem MassSpectrometry (LC-MS/MS).This test was developed and its performance characteristicsdetermined by [facility] in a manner consistent with CLIArequirements. This test has not been cleared or approved bythe U.S. Food and Drug Administration.Test Performed by:[address] [address] Director: Bambi Singh Ph.D.; CLIA# [id number] Performed By: #### T FTEST ####[facility] LABCLIA [id number] [place] [address] CNPTOUTREACHon 03-06-2024 CNPTOUTREACH Normal [facility] CASE MANAGEMon 03-05-2024 CASE MANAGEM Normal [facility] CNDSon 03-05-2024 CNDS Normal [facility] NURSING PROGon 03-05-2024 NURSING PROG Normal [facility] US CAROTID LTon 03-05-2024 US CAROTID LT Normal [facility] ANES POSTPROC EVALon 024 ANES POSTPROC EVAL Normal [facility] ANES PRE-OPon 03-04-2024 ANES PRE-OP Normal [facility] ARTERIAL BLOOD GASES WITH IO NIZED MAGNESIUMon 03-04-2024 Base excess Calc (Bld) [Moles/Vol] 0 mmol/L Normal 0-2 [facility] Comment on above: Order Comment: Speci men Type: ARTERIAL BLOOD SPECIMENOrdering Facility: [facility] Address: [address] [place] [address] Performed By: #### A LLMG ####[facility] LABIA [id number] [place] [address] [place] Calcium.ionized (Bld) [Mass/Vol] 1.29 mmol/L Normal 1.08-1.30 [facility] Comment on above: Order Comment: Speci men Type: ARTERIAL BLOOD SPECIMENOrdering Facility: [facility] Address: [address] [place] [address] Performed By: #### A LLMG ####[facility] LABCLIA [id number] [place] [address] [place] Calcium.ionized adjusted to pH 7.4 (BldA) [Moles/Vol] 1.25 mmol/L Normal 1.08-1.30 [facility] Comment on above: Order Comment: Speci men Type: ARTERIAL BLOOD SPECIMENOrdering Facility: [facility] Address: [address] [place] [address] Performed By: #### A LLMG ####[facility] LABCLIA [id number] [place] [address] [place] Carboxyhemoglobin (BldA) [Mass fraction] 1.4 % Normal 0.0-2.0 [facility] Comment on above: Order Comment: Speci men Type: ARTERIAL BLOOD SPECIMENOrdering Facility: [facility] Address: [address] [place] [address] Result Comment: Carb oxyhemoglobin Reference Range for Smokers: 2.0-8.0% Performed By: #### A LLMG ####[facility] LABCLIA [id number] [place] [address] [place] CO2 (Bld) [Partial pressure] 49 mm Hg High 36-46 [facility] Comment on above: Order Comment: Speci men Type: ARTERIAL BLOOD SPECIMENOrdering Facility: [facility] Address: [address] [place] [address] Performed By: #### A LLMG ####[facility] LABCLIA [id number] [place] [address] [place] CO2 adjusted to patient's actual temperature (Bld) [Partial pressure] 49 mmHg High 36-46 [facility] Comment on above: Order Comment: Speci men Type: ARTERIAL BLOOD SPECIMENOrdering Facility: [facility] Address: [address] [place] [address] Performed By: #### A LLMG ####[facility] LABCLIA [id number] [place] [address] [place] Glucose [Mass/Vol] 105 mg/dL Normal 60-105 [facility] Comment on above: Order Comment: Speci men Type: ARTERIAL BLOOD SPECIMENOrdering Facility: [facility] Address: [address] [place] [address] Performed By: #### A LLMG ####[facility] LABCLIA [id number] [place] [address] [place] HCO3 (Bld) [Moles/Vol] 26 mmol/L Normal 22-26 [facility] Comment on above: Order Comment: Speci men Type: ARTERIAL BLOOD SPECIMENOrdering Facility: [facility] Address: [address] [place] [address] Performed By: #### A LLMG ####[facility] LABCLIA [id number] [place] [address] [place] Hematocrit (Bld) [Volume fraction] 36.8 % Low 39.0-51.0 [facility] Comment on above: Order Comment: Speci men Type: ARTERIAL BLOOD SPECIMENOrdering Facility: [facility] Address: [address] [place] [address] Performed By: #### A LLMG ####[facility] LABIA [id number] [place] [address] [place] Hemoglobin (Bld) [Mass/Vol] 11.9 g/dL Low 13.0-17.0 [facility] Comment on above: Order Comment: Speci men Type: ARTERIAL BLOOD SPECIMENOrdering Facility: [facility] Address: [address] [place] [address] Performed By: #### A LLMG ####[facility] LABIA [id number] [place] [address] [place] [place] Lactate [Moles/Vol] 0.7 mmol/L Normal 0.5-2.2 [facility] [place] Comment on above: Order Comment: Speci men Type: ARTERIAL BLOOD SPECIMENOrdering Facility: [facility] Address: [address] [place] [address] Performed By: #### A LLMG ####[facility] LABIA [id number] [place] [address] [place] Magnesium [Moles/Vol] 0.65 mmol/L High 0.45-0.60 [facility] Comment on above: Order Comment: Speci men Type: ARTERIAL BLOOD SPECIMENOrdering Facility: [facility] Address: [address] [place] [address] Performed By: #### A LLMG ####[facility] LABCLIA [id number] [place] [address] [place] Methemoglobin (Bld) [Mass fraction] 0.8 % Normal 0.0-1.5 [facility] Comment on above: Order Comment: Speci men Type: ARTERIAL BLOOD SPECIMENOrdering Facility: [facility] Address: [address] [place] [address] Performed By: #### A LLMG ####[facility] LABCLIA [id number] [place] [address] [place] Oxygen (Bld) [Partial pressure] 129 mm Hg High 85-95 [facility] Comment on above: Order Comment: Speci men Type: ARTERIAL BLOOD SPECIMENOrdering Facility: [facility] Address: [address] [place] [address] Performed By: #### A LLMG ####[facility] LABCLIA [id number] [place] [address] [place] Oxygen adjusted to patient's actual temperature (Bld) [Partial pressure] 129 mmHg High 85-95 [facility] Comment on above: Order Comment: Speci men Type: ARTERIAL BLOOD SPECIMENOrdering Facility: [facility] Address: [address] [place] [address] Performed By: #### A LLMG ####[facility] LABCLIA [id number] [place] [address] [place] Oxyhemoglobin (BldA) [Mass fraction] 97 % Normal 95-98 [facility] Comment on above: Order Comment: Speci men Type: ARTERIAL BLOOD SPECIMENOrdering Facility: [facility] Address: [address] [place] [address] Performed By: #### A LLMG ####[facility] LABCLIA [id number] [place] [address] [place] pH (Bld) 7.34 [pH] Low 7.35-7.45 [facility] Comment on above: Order Comment: Speci men Type: ARTERIAL BLOOD SPECIMENOrdering Facility: [facility] Address: [address] [place] [address] Performed By: #### A LLMG ####[facility] [id number] [place] [address] [place] pH adjusted to patient's actual temperature (Bld) 7.34 Low 7.35-7.45 [facility] Comment on above: Order Comment: Speci men Type: ARTERIAL BLOOD SPECIMENOrdering Facility: [facility] Address: [address] [place] [address] Performed By: #### A LLMG ####[facility] [id number] [place] [address] [place] Potassium [Moles/Vol] 3.9 mmol/L Normal 3.5-5.0 [facility] Comment on above: Order Comment: Speci men Type: ARTERIAL BLOOD SPECIMENOrdering Facility: [facility] Address: [address] [place] [address] Performed By: #### A LLMG ####[facility] [id number] [place] [address] [place] Sodium [Moles/Vol] 137 mmol/L Normal 136-144 [facility] Comment on above: Order Comment: Speci men Type: ARTERIAL BLOOD SPECIMENOrdering Facility: [facility] Address: [address] [place] [address] Performed By: #### A LLMG ####[facility] [id number] [place] [address] [place] ASPIRIN/CLOPIDOGREL RESISTAN CEon 03-04-2024 Platelet aggregation ADP induced High dose (PRP) [Rel units/Vol] 17 % Max Low 65-93 [facility] Comment on above: Order Comment: Speci men Type: BLOOD SPECIMENOrdering Facility: [facility] Address: [address] [place] [address] Performed By: #### A SPCLP ####[facility] [id number] [place] [address] [place] Platelet aggregation arachidonate induced 500 ug/mL (PRP) [Rel units/Vol] 22 % Max Low 75-100 [facility] Comment on above: Order Comment: Speci men Type: BLOOD SPECIMENOrdering Facility: [facility] Address: [address] [place] [address] Performed By: #### A SPCLP ####[facility] [id number] [place] [address] [place] BRIEF OP NOTon 03-04-2024 BRIEF OP NOT Normal [facility] CASE MANAGEMon 03-04-2024 CASE MANAGEM Normal [facility] CBC panel Auto (Bld)on 03-04 Erythrocyte distribution width (RBC) [Ratio] 18.7 % High 11.5-15.0 [facility] Comment on above: Order Comment: Speci men Type: BLOOD SPECIMENOrdering Facility: [facility] Address: [address] [place] [address] Performed By: #### 5 8410-2 ####[facility] [id number] [place] [address] [place] Hematocrit (Bld) [Volume fraction] 39.7 % Normal 39.0-51.0 [facility] Comment on above: Order Comment: Speci men Type: BLOOD SPECIMENOrdering Facility: [facility] Address: [address] [place] [address] Performed By: #### 5 8410-2 ####[facility] [id number] [place] [address] [place] Hemoglobin (Bld) [Mass/Vol] 12.3 g/dL Low 13.0-17.0 [facility] Comment on above: Order Comment: Speci men Type: BLOOD SPECIMENOrdering Facility: [facility] Address: [address] [place] [address] Performed By: #### 5 8410-2 ####[facility] LABCLIA [id number] [place] [address] [place] MCH (RBC) [Entitic mass] 27.5 pg Normal 26.0-34.0 [facility] Comment on above: Order Comment: Speci men Type: BLOOD SPECIMENOrdering Facility: [facility] Address: [address] [place] [address] Performed By: #### 5 8410-2 ####[facility] LABCLIA [id number] [place] [address] [place] MCHC (RBC) [Mass/Vol] 31.0 g/dL Normal 30.5-36.0 [facility] Comment on above: Order Comment: Speci men Type: BLOOD SPECIMENOrdering Facility: [facility] Address: [address] [place] [address] Performed By: #### 5 8410-2 ####[facility] [id number] [place] [address] [place] MCV (RBC) [Entitic vol] 88.8 fL Normal 80.0-100.0 [facility] Comment on above: Order Comment: Speci men Type: BLOOD SPECIMENOrdering Facility: [facility] Address: [address] [place] [address] Performed By: #### 5 8410-2 ####[facility] LABCLIA [id number] [place] [address] [place] Nucleated RBC (Bld) [#/Vol] 10*3/uL Normal <0.01 [facility] Comment on above: Order Comment: Speci men Type: BLOOD SPECIMENOrdering Facility: [facility] Address: [address] [place] [address] Performed By: #### 5 8410-2 ####[facility] LABCLIA [id number] [place] [address] [place] Platelet mean volume (Bld) [Entitic vol] 10.1 fL Normal 9.0-12.7 [facility] Comment on above: Order Comment: Speci men Type: BLOOD SPECIMENOrdering Facility: [facility] Address: [address] [place] [address] Performed By: #### 5 8410-2 ####[facility] [id number] [place] [address] [place] Platelets (Bld) [#/Vol] 168 10*3/uL Normal 150-400 [facility] Comment on above: Order Comment: Speci men Type: BLOOD SPECIMENOrdering Facility: [facility] Address: [address] [place] [address] Performed By: #### 5 8410-2 ####[facility] [id number] [place] [address] [place] RBC (Bld) [#/Vol] 4.47 10*6/uL Normal 4.20-6.00 [facility] [place] Comment on above: Order Comment: Speci men Type: BLOOD SPECIMENOrdering Facility: [facility] Address: [address] [place] [address] Performed By: #### 5 8410-2 ####[facility] [id number] [place] [address] [place] WBC (Bld) [#/Vol] 5.30 10*3/uL Normal 3.70-11.00 [facility] [place] Comment on above: Order Comment: Speci men Type: BLOOD SPECIMENOrdering Facility: [facility] Address: [address] [place] [address] Performed By: #### 5 8410-2 ####[facility] [id number] [place] [address] [place] IR CAROTIDon 03-04-2024 IR CAROTID Normal [facility] IR CAROTID CERVICALon 2023 IR CAROTID CERVICAL Normal [facility] [place] IR NEUROVASCULAR STENTon IR NEUROVASCULAR STENT Normal [facility] MRI BRAIN WO IVCONon 024 MRI BRAIN WO IVCON Normal [facility] NURSING PROGon 03-04-2024 NURSING PROG Normal [facility] Renal function 2000 panelon 03-04-2024 Albumin [Mass/Vol] 3.3 g/dL Low 3.9-4.9 [facility] Comment on above: Order Comment: Speci men Type: BLOOD SPECIMENOrdering Facility: [facility] Address: [address] [place] [address] Performed By: #### 2 4362-6 ####[facility] LABCLIA [id number] [place] [address] [place] Anion gap [Moles/Vol] 13 mmol/L Normal 8-15 [facility] Comment on above: Order Comment: Speci men Type: BLOOD SPECIMENOrdering Facility: [facility] Address: [address] [place], [place] [address] Performed By: #### 2 4362-6 ####[facility] LABCLIA [id number] [place] [address] [place] Calcium [Mass/Vol] 9.6 mg/dL Normal 8.5-10.2 [facility] Comment on above: Order Comment: Speci men Type: BLOOD SPECIMENOrdering Facility: [facility] Address: [address] [place] [address] Performed By: #### 2 4362-6 ####[facility] LABCL[facility] [id number] [place] [address] [place] Chloride [Moles/Vol] 101 mmol/L Normal 98-107 [facility] Comment on above: Order Comment: Speci men Type: BLOOD SPECIMENOrdering Facility: [facility] Address: [address] [place] [address] Performed By: #### 2 4362-6 ####[facility] LABCLIA [id number] [place] [address] [place] CO2 [Moles/Vol] 23 mmol/L Normal 22-30 [facility] Comment on above: Order Comment: Speci men Type: BLOOD SPECIMENOrdering Facility: [facility] Address: [address] [place] [address] Performed By: #### 2 4362-6 ####[facility] LABCL[facility] [id number] [place] [address] [place] Creatinine [Mass/Vol] 1.91 mg/dL High 0.73-1.22 [facility] Comment on above: Order Comment: Speci men Type: BLOOD SPECIMENOrdering Facility: [facility] Address: [address] [place] [address] Performed By: #### 2 4362-6 ####[facility] [id number] [place] [address] [place] Creatinine and Glomerular filtration rate.predicted panel (S/P/Bld) 35 mL/min/1.73m??? Low >=60 [facility] Comment on above: Order Comment: Speci men Type: BLOOD SPECIMENOrdering Facility: [facility] Address: [address] [place] [address] Result Comment: Etta mated Glomerular Filtration Rate [...] actual GFR. Performed By: #### 2 4362-6 ####[facility] LABCLIA [id number] [place] [address] [place] Glucose [Mass/Vol] 84 mg/dL Normal 74-99 [facility] Comment on above: Order Comment: Speci men Type: BLOOD SPECIMENOrdering Facility: [facility] Address: [address] [place] [address] Result Comment: The [place] [employer] (ADA) provides guidance for cutoff [...] Standards of Medical Care in Diabetes 2016, [place] [employer]. Diabetes Care. 2016.39(Suppl 1). Performed By: #### 2 4362-6 ####[facility] LABCL[facility] [id number] [place] [address] [place] Phosphate [Mass/Vol] 3.9 mg/dL Normal 2.7-4.8 [facility] Comment on above: Order Comment: Speci men Type: BLOOD SPECIMENOrdering Facility: [facility] Address: [address] [place], [place] [address] Performed By: #### 2 4362-6 ####[facility] LABCL[facility] [id number] [place] [address] [place] Potassium [Moles/Vol] 4.0 mmol/L Normal 3.7-5.1 [facility] Comment on above: Order Comment: Speci men Type: BLOOD SPECIMENOrdering Facility: [facility] Address: [address] [place] [address] Performed By: #### 2 4362-6 ####[facility] LABCL[facility] [id number] [place] [address] [place] Sodium [Moles/Vol] 137 mmol/L Normal 136-144 [facility] Comment on above: Order Comment: Speci men Type: BLOOD SPECIMENOrdering Facility: [facility] Address: [address] [place] [address] Performed By: #### 2 4362-6 ####[facility]CL[facility] [id number] [place] [address] [place] Urea nitrogen [Mass/Vol] 27 mg/dL High 9-24 [facility] Comment on above: Order Comment: Speci men Type: BLOOD SPECIMENOrdering Facility: [facility] Address: [address] [place] [address] Performed By: #### 2 4362-6 ####[facility] LABCL[facility] [id number] [address] [place] ALLIED HEALTHon 03-03-2024 ALLIED HEALTH HNO ID: [id number] Author: FERMIN MIGUEL Chaplain Service: Spiritual Care Author Type: [employer] Up Mechanic Type: Allied Health Filed: 03/03/2024 10:38 Note Text: Accepted anoint.,bless. Normal [facility] CASE MANAGEMon 03-03-2024 CASE MANAGEM Normal [facility] CBC panel Auto (Bld)on 03-03 Erythrocyte distribution width (RBC) [Ratio] 18.6 % High 11.5-15.0 [facility] Comment on above: Order Comment: Speci men Type: BLOOD SPECIMENOrdering Facility: [facility] Address: [address] [place] [address] Performed By: #### 5 8410-2 ####[facility]CL[facility] [id number] [address] [place] Hematocrit (Bld) [Volume fraction] 39.3 % Normal 39.0-51.0 [facility] Comment on above: Order Comment: Speci men Type: BLOOD SPECIMENOrdering Facility: [facility] Address: [address] [place] [address] Performed By: #### 5 8410-2 ####[facility]CL[facility] [id number] [address] [place] Hemoglobin (Bld) [Mass/Vol] 12.3 g/dL Low 13.0-17.0 [facility] Comment on above: Order Comment: Speci men Type: BLOOD SPECIMENOrdering Facility: [facility] Address: [address] [place] [address] Performed By: #### 5 8410-2 ####[facility] LABCL[facility] [id number] [place] [address] [place] MCH (RBC) [Entitic mass] 27.5 pg Normal 26.0-34.0 [facility] Comment on above: Order Comment: Speci men Type: BLOOD SPECIMENOrdering Facility: [facility] Address: [address] [place] [address] Performed By: #### 5 8410-2 ####[facility]CL[facility] [id number] [address] [place] MCHC (RBC) [Mass/Vol] 31.3 g/dL Normal 30.5-36.0 [facility] Comment on above: Order Comment: Speci men Type: BLOOD SPECIMENOrdering Facility: [facility] Address: [address] [place] [address] Performed By: #### 5 8410-2 ####[facility] [id number] [place] [address] [place] MCV (RBC) [Entitic vol] 87.7 fL Normal 80.0-100.0 [facility] Comment on above: Order Comment: Speci men Type: BLOOD SPECIMENOrdering Facility: [facility] Address: [address] [place] [address] Performed By: #### 5 8410-2 ####[facility]CL[facility] [id number] [place] [address] [place] Nucleated RBC (Bld) [#/Vol] 10*3/uL Normal <0.01 [facility] Comment on above: Order Comment: Speci men Type: BLOOD SPECIMENOrdering Facility: [facility] Address: [address] [place] [address] Performed By: #### 5 8410-2 ####[facility] [id number] [place] [address] [place] Platelet mean volume (Bld) [Entitic vol] 10.3 fL Normal 9.0-12.7 [facility] Comment on above: Order Comment: Speci men Type: BLOOD SPECIMENOrdering Facility: [facility] Address: [address] [place] [address] Performed By: #### 5 8410-2 ####[facility] [id number] [place] [address] [place] Platelets (Bld) [#/Vol] 174 10*3/uL Normal 150-400 [facility] Comment on above: Order Comment: Speci men Type: BLOOD SPECIMENOrdering Facility: [facility] Address: [address] [place] [address] Performed By: #### 5 8410-2 ####[facility] [id number] [place] [address] [place] RBC (Bld) [#/Vol] 4.48 10*6/uL Normal 4.20-6.00 [facility] [place] Comment on above: Order Comment: Speci men Type: BLOOD SPECIMENOrdering Facility: [facility] Address: [address] [place] [address] Performed By: #### 5 8410-2 ####[facility] [id number] [place] [address] [place] WBC (Bld) [#/Vol] 5.79 10*3/uL Normal 3.70-11.00 [facility] [place] Comment on above: Order Comment: Speci men Type: BLOOD SPECIMENOrdering Facility: [facility] Address: [address] [place] [address] Performed By: #### 5 8410-2 ####[facility] [id number] [place] [address] [place] Fact Xa PPP-aCncon Coagulation factor X activated act Coag Qn (PPP) 0.31 IU/mL High <0.10 [facility] Comment on above: Order Comment: Speci may Type: BLOOD SPECIMENOrdering Facility: [facility] Address: [address] [place] [address] Result Comment: The recommended therapeutic range for treatment of venous and arterial thrombosis with intravenous unfractionated heparin is an anti Xa activity level of 0.3 to 0.7 IU/mL. In patients with concomitant therapy with thrombolytic agents and/or platelet glycoprotein IIb/IIIa antagonists, the recommended therapeutic range is an anti Xa activity level of 0.2 to 0.5 IU/mL. Performed By: #### 3 217-7, PTTAC ####[facility] [id number] [place] [address] [place] Magnesium SerPl-mCncon 03-03 Magnesium [Mass/Vol] 2.3 mg/dL Normal 1.7-2.3 [facility] Comment on above: Order Comment: Rozi may Type: BLOOD SPECIMENOrdering Facility: [facility] Address: [address] [place] [address] Performed By: #### 1 9123-9, 55070-3 ####[facility] [id number] [place] [address] [place] PTT, ANTICOAGULANT THERAPYon 03-03-2024 aPTT Coag (PPP) [Time] 57.8 s High 23.0-32.4 [facility] Comment on above: Order Comment: Rozi may Type: BLOOD SPECIMENOrdering Facility: [facility] Address: [address] [place] [address] Performed By: #### 3 217-7, PTTAC ####[facility] [id number] [place] [address] [place] aPTT Coag (PPP) [Time] 37.1 s High 23.0-32.4 [facility] Comment on above: Order Comment: Speci men Type: BLOOD SPECIMENOrdering Facility: [facility] Address: [address] [place] [address] Performed By: #### P TTAC ####[facility] [id number] [place] [address] [place] aPTT Coag (PPP) [Time] 69.2 s High 23.0-32.4 [facility] Comment on above: Order Comment: Speci men Type: BLOOD SPECIMENOrdering Facility: [facility] Address: [address] [place] [address] Performed By: #### P TTAC ####[facility] [id number] [place] [address] [place] Renal function 2000 panelon 03-03-2024 Albumin [Mass/Vol] 3.3 g/dL Low 3.9-4.9 [facility] Comment on above: Order Comment: Speci men Type: BLOOD SPECIMENOrdering Facility: [facility] Address: [address] [place] [address] Performed By: #### 1 9123-9, 61958-8 ####[facility] [id number] [place] [address] [place] Anion gap [Moles/Vol] 10 mmol/L Normal 8-15 [facility] Comment on above: Order Comment: Speci men Type: BLOOD SPECIMENOrdering Facility: [facility] Address: [address] [place] [address] Performed By: #### 1 9123-9, 38217-6 ####[facility] [id number] [place] [id number] [place] Calcium [Mass/Vol] 9.6 mg/dL Normal 8.5-10.2 [facility] Comment on above: Order Comment: Speci men Type: BLOOD SPECIMENOrdering Facility: [facility] Address: [address] [place] [address] Performed By: #### 1 9123-9, 10552-1 ####[facility] [id number] [place] [address] [place] Chloride [Moles/Vol] 103 mmol/L Normal 98-107 [facility] Comment on above: Order Comment: Speci men Type: BLOOD SPECIMENOrdering Facility: [facility] Address: [address] [place] [address] Performed By: #### 1 9123-9, 47276-7 ####[facility] [id number] [place] [address] [place] CO2 [Moles/Vol] 25 mmol/L Normal 22-30 [facility] Comment on above: Order Comment: Speci men Type: BLOOD SPECIMENOrdering Facility: [facility] Address: [address] [place] [address] Performed By: #### 1 9123-9, 90190-2 ####[facility] [id number] [place] [address] [place] Creatinine [Mass/Vol] 1.93 mg/dL High 0.73-1.22 [facility] Comment on above: Order Comment: Speci men Type: BLOOD SPECIMENOrdering Facility: [facility] Address: [address] [place] [address] Performed By: #### 1 9123-9, 22389-7 ####[facility] [id number] [place] [address] [place] Creatinine and Glomerular filtration rate.predicted panel (S/P/Bld) 34 mL/min/1.73m??? Low >=60 [facility] Comment on above: Order Comment: Speci men Type: BLOOD SPECIMENOrdering Facility: [facility] Address: [address] [place] [address] Result Comment: Etta mated Glomerular Filtration Rate [...] actual GFR. Performed By: #### 1 9123-9, 87713-1 ####[facility] [id number] [place] [address] [place] Glucose [Mass/Vol] 91 mg/dL Normal 74-99 [facility] Comment on above: Order Comment: Dylan olvera Type: BLOOD SPECIMENOrdering Facility: [facility] Address: [address] [place] [address] Result Comment: The [place] [employer] Association (ADA) provides guidance for cutoff [...] Standards of Medical Care in Diabetes 2016, [place] [employer]. Diabetes Care. 2016.39(Suppl 1). Performed By: #### 1 9123-9, 61783-6 ####[facility] LABIA [id number] [place] [id number] [place] Phosphate [Mass/Vol] 3.6 mg/dL Normal 2.7-4.8 [facility] Comment on above: Order Comment: Dylan olvera Type: BLOOD SPECIMENOrdering Facility: [facility] Address: [address] [place] [address] Performed By: #### 1 9123-9, 01215-3 ####[facility] LABCLIA [id number] [place] [address] [place] Potassium [Moles/Vol] 4.4 mmol/L Normal 3.7-5.1 [facility] Comment on above: Order Comment: Speci men Type: BLOOD SPECIMENOrdering Facility: [facility] Address: [address] [place] [address] Performed By: #### 1 9123-9, 08434-8 ####[facility] LABCLIA [id number] [place] [address] [place] Sodium [Moles/Vol] 138 mmol/L Normal 136-144 [facility] Comment on above: Order Comment: Speci men Type: BLOOD SPECIMENOrdering Facility: [facility] Address: [address] [place] [address] Performed By: #### 1 9123-9, 20920-0 ####[facility] LABCLIA [id number] [place] [address] [place] Urea nitrogen [Mass/Vol] 22 mg/dL Normal 9-24 [facility] Comment on above: Order Comment: Speci men Type: BLOOD SPECIMENOrdering Facility: [facility] Address: [address] [place] [address] Performed By: #### 1 9123-9, 87347-3 ####[facility] LABCLIA [id number] [place] [address] [place] TYPE + SCREENon 03-03-2024 ABO O Normal [facility] Comment on above: Order Comment: Speci men Type: BLOOD SPECIMENOrdering Facility: [facility] Address: [address] [place] [address] Performed By: #### T SCR ####[facility] BLOOD BANKCLIA [id number] [place] [address] [place] HISTORICAL AB SCR STATUS Negative Normal [facility] Comment on above: Order Comment: Speci men Type: BLOOD SPECIMENOrdering Facility: [facility] Address: [address] [place] [address] Performed By: #### T SCR ####[facility] BLOOD BANKCLIA [id number] [place] [id number] [place] Rh Nom (Bld) Positive Normal [facility] Comment on above: Order Comment: Speci men Type: BLOOD SPECIMENOrdering Facility: [facility] Address: [address] [place] [address] Performed By: #### T SCR ####CC [facility] BLOOD BANKCLIA [id number] [place] [address] [place] TYPE AND SCREEN EXPIRATION 03/06/2024 23:59 Normal [facility] Comment on above: Order Comment: Speci men Type: BLOOD SPECIMENOrdering Facility: [facility] Address: [address] [place] [address] Performed By: #### T SCR ####CC [facility] BLOOD BANKCLIA [id number] [place] [id number] [place] ALLIED HEALTHon 03-02-2024 ALLIED HEALTH Normal [facility] CASE MGT INIT ASSESon 2023 CASE MGT INIT ASSES Normal [facility] CASE MGT INIT ASSES Normal [facility] CBC panel Auto (Bld)on 03-02 Erythrocyte distribution width (RBC) [Ratio] 18.5 % High 11.5-15.0 [facility] Comment on above: Order Comment: Speci men Type: BLOOD SPECIMENOrdering Facility: [facility] Address: [address] [place] [address] Performed By: #### 5 8410-2 ####[facility] LABCLIA [id number] [place] [address] [place] Hematocrit (Bld) [Volume fraction] 38.5 % Low 39.0-51.0 [facility] Comment on above: Order Comment: Speci men Type: BLOOD SPECIMENOrdering Facility: [facility] Address: [address] [place] [address] Performed By: #### 5 8410-2 ####[facility] LABCLIA [id number] [place] [address] [place] Hemoglobin (Bld) [Mass/Vol] 11.9 g/dL Low 13.0-17.0 [facility] Comment on above: Order Comment: Speci men Type: BLOOD SPECIMENOrdering Facility: [facility] Address: [address] [place] [address] Performed By: #### 5 8410-2 ####[facility] LABCLIA [id number] [place] [address] [place] MCH (RBC) [Entitic mass] 27.4 pg Normal 26.0-34.0 [facility] Comment on above: Order Comment: Speci men Type: BLOOD SPECIMENOrdering Facility: [facility] Address: [address] [place] [address] Performed By: #### 5 8410-2 ####[facility] LABCLIA [id number] [place] [address] [place] MCHC (RBC) [Mass/Vol] 30.9 g/dL Normal 30.5-36.0 [facility] Comment on above: Order Comment: Speci men Type: BLOOD SPECIMENOrdering Facility: [facility] Address: [address] [place] [address] Performed By: #### 5 8410-2 ####[facility] LABCLIA [id number] [place] [address] [place] MCV (RBC) [Entitic vol] 88.5 fL Normal 80.0-100.0 [facility] Comment on above: Order Comment: Speci men Type: BLOOD SPECIMENOrdering Facility: [facility] Address: [address] [place] [address] Performed By: #### 5 8410-2 ####[facility] LABCLIA [id number] [place] [address] [place] Nucleated RBC (Bld) [#/Vol] 10*3/uL Normal <0.01 [facility] Comment on above: Order Comment: Speci men Type: BLOOD SPECIMENOrdering Facility: [facility] Address: [address] [place] [address] Performed By: #### 5 8410-2 ####[facility] LABIA [id number] [place] [address] [place] Platelet mean volume (Bld) [Entitic vol] 10.3 fL Normal 9.0-12.7 [facility] Comment on above: Order Comment: Speci men Type: BLOOD SPECIMENOrdering Facility: [facility] Address: [address] [place] [address] Performed By: #### 5 8410-2 ####[facility] LABIA [id number] [place] [address] [place] Platelets (Bld) [#/Vol] 177 10*3/uL Normal 150-400 [facility] Comment on above: Order Comment: Speci men Type: BLOOD SPECIMENOrdering Facility: [facility] Address: [address] [place] [address] Performed By: #### 5 8410-2 ####[facility] LABIA [id number] [place] [address] [place] RBC (Bld) [#/Vol] 4.35 10*6/uL Normal 4.20-6.00 [facility] Comment on above: Order Comment: Speci men Type: BLOOD SPECIMENOrdering Facility: [facility] Address: [address] [place] [address] Performed By: #### 5 8410-2 ####[facility] LABIA [id number] [place] [address] [place] WBC (Bld) [#/Vol] 5.22 10*3/uL Normal 3.70-11.00 [facility] Comment on above: Order Comment: Speci men Type: BLOOD SPECIMENOrdering Facility: [facility] Address: [address] [place] [address] Performed By: #### 5 8410-2 ####[facility] LABCLIA [id number] [place] [address] [place] CONSULTon 03-02-2024 CONSULT Normal [facility] HISTORY PHYSICALon HISTORY PHYSICAL Normal [facility] NUTRITIONon 03-02-2024 NUTRITION Normal [facility] PTT, ANTICOAGULANT THERAPYon 03-02-2024 aPTT Coag (PPP) [Time] 67.7 s High 23.0-32.4 [facility] Comment on above: Order Comment: Speci men Type: BLOOD SPECIMENOrdering Facility: [facility] Address: [address] [place] [address] Performed By: #### P TTAC ####[facility] LABCLIA [id number] [place] [address] [place] aPTT Coag (PPP) [Time] 53.4 s High 23.0-32.4 [facility] Comment on above: Order Comment: Speci men Type: BLOOD SPECIMENOrdering Facility: [facility] Address: [address] [place] [address] Performed By: #### P TTAC ####[facility] LABCLIA [id number] [place] [address] [place] aPTT Coag (PPP) [Time] 38.6 s High 23.0-32.4 [facility] Comment on above: Order Comment: Speci men Type: BLOOD SPECIMENOrdering Facility: [facility] Address: [address] [place] [address] Performed By: #### P TTAC ####[facility] LABIA [id number] [address] [address] [id number] [address] [place] Renal function 2000 panelon 03-02-2024 Albumin [Mass/Vol] 3.3 g/dL Low 3.9-4.9 [facility] Comment on above: Order Comment: Speci men Type: BLOOD SPECIMENOrdering Facility: [facility] Address: [address] [place] [address] Performed By: #### 2 4362-6 ####[facility] LABCLIA [id number] [place] [address] [place] Anion gap [Moles/Vol] 11 mmol/L Normal 8-15 [facility] Comment on above: Order Comment: Speci men Type: BLOOD SPECIMENOrdering Facility: [facility] Address: [address] [place] [address] Performed By: #### 2 4362-6 ####[facility] LABCLIA [id number] [place] [address] [place] Calcium [Mass/Vol] 9.6 mg/dL Normal 8.5-10.2 [facility] Comment on above: Order Comment: Speci men Type: BLOOD SPECIMENOrdering Facility: [facility] Address: [address] [place] [address] Performed By: #### 2 4362-6 ####[facility] LABCLIA [id number] [place] [address] [place] Chloride [Moles/Vol] 103 mmol/L Normal 98-107 [facility] Comment on above: Order Comment: Speci men Type: BLOOD SPECIMENOrdering Facility: [facility] Address: [address] [place] [address] Performed By: #### 2 4362-6 ####[facility] LABCLIA [id number] [place] [address] [place] CO2 [Moles/Vol] 25 mmol/L Normal 22-30 [facility] Comment on above: Order Comment: Speci men Type: BLOOD SPECIMENOrdering Facility: [facility] Address: [address] [place] [id number] Performed By: #### 2 4362-6 ####[facility] LABIA [id number] [place] [address] [place] Creatinine [Mass/Vol] 1.89 mg/dL High 0.73-1.22 [facility] Comment on above: Order Comment: Speci men Type: BLOOD SPECIMENOrdering Facility: [facility] Address: [address] [place] [address] Performed By: #### 2 4362-6 ####[facility] LABIA [id number] [place] [address] [place] Creatinine and Glomerular filtration rate.predicted panel (S/P/Bld) 35 mL/min/1.73m??? Low >=60 [facility] Comment on above: Order Comment: Dylan men Type: BLOOD SPECIMENOrdering Facility: [facility] Address: [address] [place] [address] Result Comment: Etta mated Glomerular Filtration Rate [...] actual GFR. Performed By: #### 2 4362-6 ####[facility] LABIA [id number] [place] [address] [place] Glucose [Mass/Vol] 88 mg/dL Normal 74-99 [facility] Comment on above: Order Comment: Rozi men Type: BLOOD SPECIMENOrdering Facility: [facility] Address: [address] [place] [address] Result Comment: The [place] [employer] (ADA) provides guidance for cutoff [...] Standards of Medical Care in Diabetes 2016, [place] [employer]. Diabetes Care. 2016.39(Suppl 1). Performed By: #### 2 4362-6 ####[facility] LABCLIA [id number] [place] [address] [place] Phosphate [Mass/Vol] 3.1 mg/dL Normal 2.7-4.8 [facility] Comment on above: Order Comment: Speci men Type: BLOOD SPECIMENOrdering Facility: [facility] Address: [address] [place] [address] Performed By: #### 2 4362-6 ####[facility] LABCLIA [id number] [place] [address] [place] Potassium [Moles/Vol] 3.9 mmol/L Normal 3.7-5.1 [facility] Comment on above: Order Comment: Speci men Type: BLOOD SPECIMENOrdering Facility: [facility] Address: [address] [place] [address] Performed By: #### 2 4362-6 ####[facility] LABCLIA [id number] [place] [address] [place] Sodium [Moles/Vol] 139 mmol/L Normal 136-144 [facility] Comment on above: Order Comment: Speci men Type: BLOOD SPECIMENOrdering Facility: [facility] Address: [address] [place] [address] Performed By: #### 2 4362-6 ####[facility] LABCLIA [id number] [place] [id number] [place] Urea nitrogen [Mass/Vol] 21 mg/dL Normal 9-24 [facility] Comment on above: Order Comment: Speci men Type: BLOOD SPECIMENOrdering Facility: [facility] Address: [address] [place], [place] [id number] Performed By: #### 2 4362-6 ####[facility] LABCLIA [id number] [place] [id number] [place] Albumin [Mass/Vol] 3.5 g/dL Low 3.9-4.9 [facility] Comment on above: Order Comment: Speci men Type: BLOOD SPECIMENOrdering Facility: [facility] Address: [address] [place] [address] Performed By: #### 2 4362-6 ####[facility] LABCLIA [id number] [place] [address] [place] Anion gap [Moles/Vol] 13 mmol/L Normal 8-15 [facility] Comment on above: Order Comment: Speci men Type: BLOOD SPECIMENOrdering Facility: [facility] Address: [address] [place] [address] Performed By: #### 2 4362-6 ####[facility] LABCLIA [id number] [place] [address] [place] Calcium [Mass/Vol] 9.9 mg/dL Normal 8.5-10.2 [facility] Comment on above: Order Comment: Speci men Type: BLOOD SPECIMENOrdering Facility: [facility] Address: [address] [place] [address] Performed By: #### 2 4362-6 ####[facility] LABCLIA [id number] [place] [id number] [place] Chloride [Moles/Vol] 101 mmol/L Normal 98-107 [facility] Comment on above: Order Comment: Speci men Type: BLOOD SPECIMENOrdering Facility: [facility] Address: [address] [place], [place] [id number] Performed By: #### 2 4362-6 ####[facility] LABCLIA [id number] [place] [address] [place] CO2 [Moles/Vol] 25 mmol/L Normal 22-30 [facility] Comment on above: Order Comment: Speci men Type: BLOOD SPECIMENOrdering Facility: [facility] Address: [address] [place] [address] Performed By: #### 2 4362-6 ####[facility] LABIA [id number] [place] [address] [place] Creatinine [Mass/Vol] 1.84 mg/dL High 0.73-1.22 [facility] Comment on above: Order Comment: Speci men Type: BLOOD SPECIMENOrdering Facility: [facility] Address: [address] [place] [address] Performed By: #### 2 4362-6 ####[facility] [id number] [place] [address] [place] Creatinine and Glomerular filtration rate.predicted panel (S/P/Bld) 36 mL/min/1.73m??? Low >=60 [facility] Comment on above: Order Comment: Speci men Type: BLOOD SPECIMENOrdering Facility: [facility] Address: [address] [place] [address] Result Comment: Etta mated Glomerular Filtration Rate [...] actual GFR. Performed By: #### 2 4362-6 ####[facility] [id number] [place] [address] [place] Glucose [Mass/Vol] 96 mg/dL Normal 74-99 [facility] Comment on above: Order Comment: Speci men Type: BLOOD SPECIMENOrdering Facility: [facility] Address: [address] [place] [address] Result Comment: The [place] [employer] Association (ADA) provides guidance for cutoff [...] Standards of Medical Care in Diabetes 2016, [place] [employer]. Diabetes Care. 2016.39(Suppl 1). Performed By: #### 2 4362-6 ####[facility] LABIA [id number] [place] [address] [place] Phosphate [Mass/Vol] 3.3 mg/dL Normal 2.7-4.8 [facility] Comment on above: Order Comment: Speci men Type: BLOOD SPECIMENOrdering Facility: [facility] Address: [address] [place] [address] Performed By: #### 2 4362-6 ####[facility] LABIA [id number] [place] [address] [place] Potassium [Moles/Vol] 4.1 mmol/L Normal 3.7-5.1 [facility] Comment on above: Order Comment: Speci men Type: BLOOD SPECIMENOrdering Facility: [facility] Address: [address] [place] [address] Performed By: #### 2 4362-6 ####[facility] LABIA [id number] [place] [address] [place] Sodium [Moles/Vol] 139 mmol/L Normal 136-144 [facility] Comment on above: Order Comment: Speci men Type: BLOOD SPECIMENOrdering Facility: [facility] Address: [address] [place] [address] Performed By: #### 2 4362-6 ####[facility] LABCLIA [id number] [address] [address] [place] Urea nitrogen [Mass/Vol] 21 mg/dL Normal 9-24 [facility] Comment on above: Order Comment: Speci men Type: BLOOD SPECIMENOrdering Facility: [facility] Address: [address] [place] [address] Performed By: #### 2 4362-6 ####[facility] LABCLIA [id number] [address] [address] [place] US CAROTID BILon 03-02-2024 US CAROTID DIANNE Normal [facility] US TCD CONTIN EMBOLI MONTon 03-02-2024 US TCD CONTIN EMBOLI MATTEO Normal [facility] VISUAL FIELD 24-2 OU (BOTH E YES)on 03-02-2024 [facility] Radiology Study observation (narrative) [facility] BASIC METABOLIC PANLon 03-01 Anion gap [Moles/Vol] 8 mmol/L Normal 5-15 [facility] Comment on above: Performed By: #### C RODO PINR, 76878-8, CMP #### [facility] ([id number]) [address] [place] [address] Calcium [Mass/Vol] 9.2 mg/dL Normal 8.5-10.5 [facility] Comment on above: Performed By: #### C BCA, PINR, 43689-6, CMP #### [facility] ([id number]) [address] [place] [address] Chloride [Moles/Vol] 104 mmol/L Normal 98-109 [facility] Comment on above: Performed By: #### C BCA, PINR, 57939-9, CMP #### [facility] ([id number]) [address] [place] [address]328 CO2 [Moles/Vol] 25 mmol/L Normal 22-32 [facility] Comment on above: Performed By: #### C BCA, PINR, 07507-9, CMP #### [facility] ([id number]) [address] [place] [address]61 Creatinine [Mass/Vol] 1.76 mg/dL High 0.70-1.20 [facility] Comment on above: Result Comment: METH OD TRACEABLE TO IDMS STANDARD Performed By: #### C BCA, PINR, 02159-2, CMP #### [facility] ([id number]) [address] [place] [address] GFR/1.73 sq M.predicted among non-blacks MDRD (S/P/Bld) [Vol rate/Area] 38 mL/min/{1.73_m2} Low >59 [facility] Comment on above: Result Comment: Reported eGFR is based on the CKD-EPI 2020 equation that does not use a race coefficient. Performed By: #### C BCA, PINR, 34481-2, CMP #### [facility] ([id number]) [address] [place] [address]707 Glucose [Mass/Vol] 94 mg/dL Normal 65-99 [facility] Comment on above: Performed By: #### C BCA, PINR, 18018-0, CMP #### [facility] ([id number]) [address] [place] [address] Potassium [Moles/Vol] 3.6 mmol/L Normal 3.5-5.0 [facility] Comment on above: Performed By: #### C BCA, PINR, 03641-9, CMP #### [facility] ([id number]) [address] [place] [address] 77814 Sodium [Moles/Vol] 137 mmol/L Normal 134-146 [facility] Comment on above: Performed By: #### C BCA, PINR, 98359-1, CMP #### [facility] ([id number]) [address] [place] [address] 90309 Urea nitrogen [Mass/Vol] 23 mg/dL Normal 5-27 [facility] Comment on above: Performed By: #### C RODO PINR, 25172-4, CMP #### [facility] ([id number]) [address] [place] [address] 86499 COMPLETE BLOOD COUNTon 03-01 Erythrocyte distribution width (RBC) [Ratio] 19.6 % High 11.5-15.0 [facility] Comment on above: Performed By: #### Marisa KOEHLER PINR, 15721-0, CMP #### [facility] ([id number]) [address] [place] [address] 88210 Hematocrit (Bld) [Volume fraction] 35.8 % Low 39-49 [facility] Comment on above: Performed By: #### Marisa KOEHLER, PINR, 09355-8, CMP #### [facility] ([id number]) [address] [place] [address] 08685 Hemoglobin (Bld) [Mass/Vol] 11.7 g/dL Low 13.0-17.0 [facility] Comment on above: Performed By: #### Marisa KOEHLER, PINR, 24184-6, CMP #### [facility] ([id number]) [address] [place] [address] 68173 MCH (RBC) [Entitic mass] 27.6 pg Normal 27-34 [facility] Comment on above: Performed By: #### C BCA, PINR, 26668-8, CMP #### [facility] ([id number]) [address] [place] [address] 15470 MCHC (RBC) [Mass/Vol] 32.6 g/dL Normal 32-36 [facility] Comment on above: Performed By: #### Marisa KOEHLER, PINR, 26207-0, CMP #### [facility] ([id number]) [address] [place] [address] 72190 MCV (RBC) [Entitic vol] 85 fL Normal 80-100 [facility] Comment on above: Performed By: #### Marisa KOEHLER, PINR, 85330-6, CMP #### [facility] ([id number]) [address] [place] [address] 20684 Platelet mean volume (Bld) [Entitic vol] 8.4 fL Normal 7-12 [facility] Comment on above: Performed By: #### C RODO, PINR, 05946-5, CMP #### [facility] ([id number]) [address] [place] [address] 26211 Platelets (Bld) [#/Vol] 190 10*3/uL Normal 150-450 [facility] Comment on above: Performed By: #### Marisa KOEHLER, PINR, 92909-3, CMP #### [facility] ([id number]) [address] [place] [address] 13396 RBC COUNT 4.23 X10E12/L Normal 4.10-5.70 [facility] Comment on above: Performed By: #### Marisa KOEHLER, PINR, 22542-0, CMP #### [facility] ([id number]) [address] [place] [address]3450 WBC (Bld) [#/Vol] 5.5 10*3/uL Normal 4.0-11.0 [facility] Comment on above: Performed By: #### Marisa KOEHLER, PINR, 63080-4, CMP #### [facility] ([id number]) [address] [place] [address] [id number] ECG COMPLETEon 03-01-2024 ECG COMPLETE Normal [facility] NURSING PROGon 03-01-2024 NURSING PROG Normal [facility] aPTT Coag (PPP) [Time]on aPTT Coag (Bld) [Time] 60 s High 26-37 [facility] Comment on above: Result Comment: NEW REFERENCE RANGE Performed By: #### 1 4979-9 ####[facility] ([id number])[address] [place] [address] 35226 HEMOGLOBINon 02-29-2024 Hemoglobin (Bld) [Mass/Vol] 11.6 g/dL Low 13.0-17.0 [facility] Comment on above: Performed By: #### 7 18-7, PLTCT ####[facility] ([id number])[address] [place] [address] 32362 PLATELET COUNT AND MPVon Platelet mean volume (Bld) [Entitic vol] 8.3 fL Normal 7-12 [facility] Comment on above: Performed By: #### 7 18-7, PLTCT ####[facility] ([id number])[address] [place] [address] 94134 Platelets (Bld) [#/Vol] 199 10*3/uL Normal 150-450 [facility] Comment on above: Performed By: #### 7 18-7, PLTCT ####[facility] ([id number])[address] [place] [address] 38787 aPTT Coag (PPP) [Time]on aPTT Coag (Bld) [Time] 64 s High 26-37 [facility] Comment on above: Result Comment: NEW REFERENCE RANGE Performed By: #### 1 4979-9 ####[facility] ([id number])[address] [place] [address] 26114 CNPNon 02-28-2024 CNPN Normal [facility] HEMOGLOBINon 02-28-2024 Hemoglobin (Bld) [Mass/Vol] 11.6 g/dL Low 13.0-17.0 [facility] Comment on above: Performed By: #### 7 18-7, PLTCT ####[facility] ([id number])[address] [place] [address], [place] [address] PLATELET COUNT AND MPVon Platelet mean volume (Bld) [Entitic vol] 8.0 fL Normal 7-12 [facility] Comment on above: Performed By: #### 7 18-7, PLTCT ####[facility] ([id number])[address] [place] [address], [place] [address] Platelets (Bld) [#/Vol] 195 10*3/uL Normal 150-450 [facility] Comment on above: Performed By: #### 7 18-7, PLTCT ####[facility] ([id number])[address] [place] [address], [place] [address] aPTT Coag (PPP) [Time]on aPTT Coag (Bld) [Time] 64 s High [address] [place] [address] Comment on above: Result Comment: NEW REFERENCE RANGE Performed By: #### 1 4979-9 ####[facility] ([id number])[address] [place] [address], [place] [address] aPTT Coag (Bld) [Time] 77 s High [address] [place] [address] Comment on above: Result Comment: NEW REFERENCE RANGE Performed By: #### 1 4979-9 ####[facility] ([id number])[address] [place] [address], [place] [address] aPTT Coag (Bld) [Time] 91 s High [address] [place] [address] Comment on above: Result Comment: NEW REFERENCE RANGE Performed By: #### 1 4979-9 ####[facility] ([id number])[address] [place] [address], [place] [address] aPTT Coag (Bld) [Time] 113 s Critically high [address] [place] [address] Comment on above: Result Comment: NEW REFERENCE RANGE Performed By: #### 1 4979-9 ####[facility] ([id number])[address] [place] [address] 28708 CNPNon 02-27-2024 CNPN Normal [facility] aPTT Coag (PPP) [Time]on aPTT Coag (Bld) [Time] s Critically high 26-37 [facility] Comment on above: Result Comment: NEW REFERENCE RANGE Performed By: #### 1 4979-9 #### [facility] ([id number]) [address] [place] [address] 61029 aPTT Coag (Bld) [Time] s Critically high 26-37 [facility] Comment on above: Result Comment: NEW REFERENCE RANGE Performed By: #### 1 4979-9 #### [facility] ([id number]) [address] [place] [address] 63947 CBC AND AUTO DIFFon 02-26-20 24 ABSOLUTE BASOPHIL 0.0 X10E9/L Normal 0.0-0.2 [facility] Comment on above: Performed By: #### C PHILLIP KOEHLERR, 07109-9, CMP #### [facility] ([id number]) [address] [place] [address] 26340 ABSOLUTE NEUTROPHIL 4.9 X10E9/L Normal 1.5-6.6 [facility] Comment on above: Performed By: #### C RODO PINR, 59286-1, CMP #### [facility] ([id number]) [address] [place] [address] 49440 Basophils/100 WBC (Bld) 0.6 % Normal [facility] Comment on above: Performed By: #### C RODO PINR, 19446-1, CMP #### [facility] ([id number]) [address] [place] [address] 16360 Eosinophils (Bld) [#/Vol] 0.2 10*3/uL Normal 0.0-0.4 [facility] Comment on above: Performed By: #### PHILLIP uCnningham BCAR, 52434-2, CMP #### [facility] ([id number]) [address] [place] [address] 08031 Eosinophils/100 WBC (Bld) 3.3 % Normal [facility] Comment on above: Performed By: #### PHILLIP Cunningham BCAR, 15037-5, CMP #### [facility] ([id number]) [address] [place] [address] 76910 Erythrocyte distribution width (RBC) [Ratio] 18.9 % High 11.5-15.0 [facility] Comment on above: Performed By: #### PHILLIP Cunningham BCAR, 04696-7, CMP #### [facility] ([id number]) [address] [place] [address] 00815 Hematocrit (Bld) [Volume fraction] 37.2 % Low 39-49 [facility] Comment on above: Performed By: #### Marisa KOEHLER PINR, 89172-0, CMP #### [facility] ([id number]) [address] [place] [address] 27425 Hemoglobin (Bld) [Mass/Vol] 12.3 g/dL Low 13.0-17.0 [facility] Comment on above: Performed By: #### Marisa KOEHLER PINR, 87398-1, CMP #### [facility] ([id number]) [address] [place] [address] 24326 Lymphocytes (Bld) [#/Vol] 1.5 10*3/uL Normal 1.0-3.5 [facility] Comment on above: Performed By: #### Marisa KOEHLER, PINR, 18596-3, CMP #### [facility] ([id number]) [address] [place] [address] 17479 Lymphocytes/100 WBC (Bld) 19.5 % Normal [facility] Comment on above: Performed By: #### C RODO PINR, 47522-3, CMP #### [facility] ([id number]) [address] [place] [address] 47304 MCH (RBC) [Entitic mass] 27.7 pg Normal 27-34 [facility] Comment on above: Performed By: #### Marisa KOEHLER PINR, 72822-1, CMP #### [facility] ([id number]) [address] [place] [address] 76749 MCHC (RBC) [Mass/Vol] 33.1 g/dL Normal 32-36 [facility] Comment on above: Performed By: #### Marisa KOEHLER PINR, 85108-5, CMP #### [facility] ([id number]) [address] [place] [address] 37495 MCV (RBC) [Entitic vol] 84 fL Normal 80-100 [facility] Comment on above: Performed By: #### Marisa KOEHLER, PINR, 34032-7, CMP #### [facility] ([id number]) [address] [place] [address] 11211 Monocytes (Bld) [#/Vol] 0.8 10*3/uL Normal 0-0.9 [facility] Comment on above: Performed By: #### Marisa KOEHLER PINR, 61099-1, CMP #### [facility] ([id number]) [address] [place] [address] 37035 Monocytes/100 WBC (Bld) 10.5 % Normal [facility] Comment on above: Performed By: #### Marisa KOEHLER, PINR, 12051-3, CMP #### [facility] ([id number]) [address] [place] [address] 41553 Neutrophils/100 WBC (Bld) 66.1 % Normal [facility] Comment on above: Performed By: #### Marisa KOEHLER PINR, 34104-4, CMP #### [facility] ([id number]) [address] [place] [address] 12794 Platelet mean volume (Bld) [Entitic vol] 8.0 fL Normal 7-12 [facility] Comment on above: Performed By: #### C BCA, PINR, 31941-4, CMP #### [facility] ([id number]) [address] [place] [address] 19346 Platelets (Bld) [#/Vol] 228 10*3/uL Normal 150-450 [facility] Comment on above: Performed By: #### C RODO, PINR, 35342-2, CMP #### [facility] ([id number]) [address] [place] [address] 93779 RBC COUNT 4.45 X10E12/L Normal 4.10-5.70 [facility] Comment on above: Performed By: #### C BCA, PINR, 12758-6, CMP #### [facility] ([id number]) [address] [place] [address] 52174 WBC (Bld) [#/Vol] 7.5 10*3/uL Normal 4.0-11.0 [facility] Comment on above: Performed By: #### C BCA, PINR, 02218-1, CMP #### [facility] ([id number]) [address] [place] [address] 78279 COMPREHENSIVE METABOLIC PANE [facility] 02-26-2024 Albumin [Mass/Vol] 3.4 g/dL Normal 3.2-5.3 [facility] Comment on above: Performed By: #### C BCA, PINR, 74485-9, CMP #### [facility] ([id number]) [address] [place] [address] 45163 ALP [Catalytic activity/Vol] 88 U/L Normal 39-130 [facility] Comment on above: Performed By: #### C BCA, PINR, 71859-8, CMP #### [facility] ([id number]) [address] [place] [address] 43443 ALT [Catalytic activity/Vol] 18 U/L Normal 0-40 [facility] Comment on above: Performed By: #### C BCA, PINR, 43875-3, CMP #### [facility] ([id number]) [address] [place] [address] [place] [address] Anion gap [Moles/Vol] 9 mmol/L Normal 5-15 [facility] Comment on above: Performed By: #### C BCA, PINR, 60398-0, CMP #### [facility] ([id number]) [address] [place] [address] 13521 AST [Catalytic activity/Vol] 26 U/L Normal 0-41 [facility] Comment on above: Performed By: #### C BCA, PINR, 70345-0, CMP #### [facility] ([id number]) [address] [place] [address], [place] [address] Bilirubin [Mass/Vol] 1.2 mg/dL Normal 0.3-1.2 [facility] Comment on above: Performed By: #### C BCA, PINR, 88335-0, CMP #### [facility] ([id number]) [address] [place] [address] [place] [address] Calcium [Mass/Vol] 9.1 mg/dL Normal 8.5-10.5 [facility] Comment on above: Performed By: #### C BCA, PINR, 95894-8, CMP #### [facility] ([id number]) [address] [place] [address] [place] [address] Chloride [Moles/Vol] 101 mmol/L Normal 98-109 [facility] Comment on above: Performed By: #### C BCA, PINR, 45143-3, CMP #### [facility] ([id number]) [address] [place] [address] 26330 CO2 [Moles/Vol] 25 mmol/L Normal 22-32 [facility] Comment on above: Performed By: #### C PHILLIP KOEHLERR, 13117-3, CMP #### [facility] ([id number]) [address] [place] [address] 63832 Creatinine [Mass/Vol] 2.08 mg/dL High 0.70-1.20 [facility] Comment on above: Result Comment: METH OD TRACEABLE TO IDMS STANDARD Performed By: #### C KATHERINE KOEHLER, 21363-0, CMP #### [facility] ([id number]) [address] [place] [address] 13954 GFR/1.73 sq M.predicted among non-blacks MDRD (S/P/Bld) [Vol rate/Area] 31 mL/min/{1.73_m2} Low >59 [facility] Comment on above: Result Comment: Reported eGFR is based on the CKD-EPI 2020 equation that does not use a race coefficient. Performed By: #### C KATHERINE KOEHLER, 78302-7, CMP #### [facility] ([id number]) [address] [place] [address] 30208 Glucose [Mass/Vol] 122 mg/dL High 65-99 [facility] Comment on above: Performed By: #### C PHILLIP KOEHLERR, 05689-3, CMP #### [facility] ([id number]) [address] [place] [address] 65253 Potassium [Moles/Vol] 3.8 mmol/L Normal 3.5-5.0 [facility] Comment on above: Performed By: #### C RODO PINR, 52598-1, CMP #### [facility] ([id number]) [address] [place] [address] 70642 Protein [Mass/Vol] 7.3 g/dL Normal 6.0-8.0 [facility] Comment on above: Performed By: #### C BCA, PINR, 50459-5, CMP #### [facility] ([id number]) [address] [place] [address] 55740 Sodium [Moles/Vol] 135 mmol/L Normal 134-146 [facility] Comment on above: Performed By: #### C BCA, PINR, 42260-3, CMP #### [facility] ([id number]) [address] [place] [address] 88174 Urea nitrogen [Mass/Vol] 29 mg/dL High 5-27 [facility] Comment on above: Performed By: #### C BCA, PINR, 63588-7, CMP #### [facility] ([id number]) [address] [place] [address] BRAIN WO CONT STROKE ALER Dylan 02-26-2024 CT BRAIN WO CONT STROKE ALERT [...] Khoury MD on 02/26/2024 11:[address] [facility] CT CTA CAROTIDon 02-26-2024 CT CTA CAROTID [...] Automated exposure control was utilized. The [place] Symptomatic Carotid Endarterectomy Trial (NASCET)calculation of ICA [...] Khoury MD on 02/26/2024 11:[address] [facility] CT CTA HEADon 02-26-2024 CT CTA HEAD [...] Engel MD on 02/26/2024 11:[address] [facility] Glucose Glucometer (BldC) [M ass/Vol]on 02-26-2024 Glucose [Mass/Vol] 112 mg/dL High 65-99 [facility] PROTIME AND INRon 02-26-2024 INR Coag (PPP) [Relative time] 2.1 {INR} High 0.8-1.1 [facility] Comment on above: Performed By: #### C RODO PINR, 09660-7, CMP #### [facility] ([id number]) [address] [place] [address] 88116 PT Coag (PPP) [Time] 23.9 s High 9.8-13.2 [facility] Comment on above: Result Comment: NEW REFERENCE RANGE Performed By: #### C RODO, PINR, 26736-5, CMP #### [facility] ([id number]) [address] [place] [address] 91498 aPTT Coag (PPP) [Time]on aPTT Coag (Bld) [Time] 39 s High 26-37 [facility] Comment on above: Result Comment: NEW REFERENCE RANGE Performed By: #### C RODO, PINR, 06312-6, CMP #### [facility] ([id number]) [address] [place] [address] 10694 Basic metabolic 2000 panelon 2024 Anion gap [Moles/Vol] 12 mmol/L Normal 8-15 [facility] Comment on above: Order Comment: Speci men Type: BLOOD SPECIMENOrdering Facility: [facility] Address: [address] [place] [address] Performed By: #### 2 4321-2, 24124-3 ####[facility] LABCLIA [id number] [facility] [place] [address] [place] Calcium [Mass/Vol] 9.4 mg/dL Normal 8.5-10.2 [facility] Comment on above: Order Comment: Speci men Type: BLOOD SPECIMENOrdering Facility: [facility] Address: [address] [place] [address] Performed By: #### 2 4321-2, ####[facility] LABCLIA [id number] [address] [address] [place] Chloride [Moles/Vol] 104 mmol/L Normal 98-107 [facility] Comment on above: Order Comment: Speci men Type: BLOOD SPECIMENOrdering Facility: [facility] Address: [address] [place] [address] Performed By: #### 2 4321-2, ####[facility] LABCL[facility] [id number] [place] [address] [place] CO2 [Moles/Vol] 24 mmol/L Normal 22-30 [facility] Comment on above: Order Comment: Speci men Type: BLOOD SPECIMENOrdering Facility: [facility] Address: [address] [place] [address] Performed By: #### 2 4321-2, ####[facility] [id number] [place] [address] [place] Creatinine [Mass/Vol] 1.90 mg/dL High 0.73-1.22 [facility] Comment on above: Order Comment: Speci men Type: BLOOD SPECIMENOrdering Facility: [facility] Address: [address] [place] [address] Performed By: #### 2 4321-2, ####[facility]CL[facility] [id number] [place] [address] [place] Creatinine and Glomerular filtration rate.predicted panel (S/P/Bld) 35 mL/min/1.73m??? Low >=60 [facility] Comment on above: Order Comment: Speci men Type: BLOOD SPECIMENOrdering Facility: [facility] Address: [address] [place] [address] Result Comment: Etta mated Glomerular Filtration Rate [...] actual GFR. Performed By: #### 2 432-, ####[facility] LABCLIA [id number] [place] [address] [place] Glucose [Mass/Vol] 90 mg/dL Normal 74-99 [facility] Comment on above: Order Comment: Dylan olvera Type: BLOOD SPECIMENOrdering Facility: [facility] Address: [address] [place] [address] Result Comment: The [place] [employer] (ADA) provides guidance for cutoff [...] Standards of Medical Care in Diabetes 2016, [place] [employer]. Diabetes Care. 2016.39(Suppl 1). Performed By: #### 2 4320-10, ####[facility]CL[facility] [id number] [place] [address] [place] Potassium [Moles/Vol] 4.0 mmol/L Normal 3.7-5.1 [facility] Comment on above: Order Comment: Dylan olvera Type: BLOOD SPECIMENOrdering Facility: [facility] Address: [address] [place] [address] Performed By: #### 2 432-, ####[facility]CL[facility] [id number] [place] [address] [place] Sodium [Moles/Vol] 140 mmol/L Normal 136-144 [facility] Comment on above: Order Comment: Speci men Type: BLOOD SPECIMENOrdering Facility: [facility] Address: [address] [place] [address] Performed By: #### 2 4321-2, 93956-1 ####[facility] LABIA [id number] [place] [address] [place] Urea nitrogen [Mass/Vol] 31 mg/dL High 9-24 [facility] Comment on above: Order Comment: Speci men Type: BLOOD SPECIMENOrdering Facility: [facility] Address: [address] [place] [address] Performed By: #### 2 4321-2, 04348-3 ####[facility] LABIA [id number] [place] [address] [place] CBC panel Auto (Bld)on 02-18 Erythrocyte distribution width (RBC) [Ratio] 17.3 % High 11.5-15.0 [facility] Comment on above: Order Comment: Speci men Type: BLOOD SPECIMENOrdering Facility: [facility] Address: [address] [place] [address] Performed By: #### 5 8410-2 ####[facility] LABIA [id number] [place] [address] [place] Hematocrit (Bld) [Volume fraction] 40.3 % Normal 39.0-51.0 [facility] Comment on above: Order Comment: Speci men Type: BLOOD SPECIMENOrdering Facility: [facility] Address: [address] [place] [address] Performed By: #### 5 8410-2 ####[facility]CL[facility] [id number] [place] [address] [place] Hemoglobin (Bld) [Mass/Vol] 12.4 g/dL Low 13.0-17.0 [facility] Comment on above: Order Comment: Speci men Type: BLOOD SPECIMENOrdering Facility: [facility] Address: [address] [place] [address] Performed By: #### 5 8410-2 ####[facility] LABIA [id number] [place] [address] [place] MCH (RBC) [Entitic mass] 26.9 pg Normal 26.0-34.0 [facility] Comment on above: Order Comment: Speci men Type: BLOOD SPECIMENOrdering Facility: [facility] Address: [address] [place] [address] Performed By: #### 5 8410-2 ####[facility] LABIA [id number] [place] [address] [place] MCHC (RBC) [Mass/Vol] 30.8 g/dL Normal 30.5-36.0 [facility] Comment on above: Order Comment: Speci men Type: BLOOD SPECIMENOrdering Facility: [facility] Address: [address] [place] [address] Performed By: #### 5 8410-2 ####[facility] LABIA [id number] [place] [address] [place] MCV (RBC) [Entitic vol] 87.4 fL Normal 80.0-100.0 [facility] Comment on above: Order Comment: Speci men Type: BLOOD SPECIMENOrdering Facility: [facility] Address: [address] [place] [address] Performed By: #### 5 8410-2 ####[facility] LABIA [id number] [place] [address] [place] Nucleated RBC (Bld) [#/Vol] 10*3/uL Normal <0.01 [facility] Comment on above: Order Comment: Speci men Type: BLOOD SPECIMENOrdering Facility: [facility] Address: [address] [place] [address] Performed By: #### 5 8410-2 ####[facility]CL[facility] [id number] [place] [address] [place] Platelet mean volume (Bld) [Entitic vol] 10.4 fL Normal 9.0-12.7 [facility] Comment on above: Order Comment: Speci men Type: BLOOD SPECIMENOrdering Facility: [facility] Address: [address] [place] [address] Performed By: #### 5 8410-2 ####[facility]CL[facility] [id number] [place] [address] [place] Platelets (Bld) [#/Vol] 219 10*3/uL Normal 150-400 [facility] Comment on above: Order Comment: Speci men Type: BLOOD SPECIMENOrdering Facility: [facility] Address: [address] [place] [address] Performed By: #### 5 8410-2 ####[facility]CL[facility] [id number] [place] [address] [place] RBC (Bld) [#/Vol] 4.61 10*6/uL Normal 4.20-6.00 [facility] Comment on above: Order Comment: Speci men Type: BLOOD SPECIMENOrdering Facility: [facility] Address: [address] [place] [address] Performed By: #### 5 8410-2 ####[facility] LABCL[facility] [id number] [place] [address] [place] WBC (Bld) [#/Vol] 7.03 10*3/uL Normal 3.70-11.00 [facility] Comment on above: Order Comment: Speci men Type: BLOOD SPECIMENOrdering Facility: [facility] Address: [address] [place] [address] Performed By: #### 5 8410-2 ####[facility] LABCLIA [id number] [address] [address] [place] CNDSon 2024 CNDS Normal [facility] ECG COMPLETEon 2024 ECG COMPLETE Normal [facility] Magnesium SerPl-mCncon 02-18 Magnesium [Mass/Vol] 2.4 mg/dL High 1.7-2.3 [facility] Comment on above: Order Comment: Speci men Type: BLOOD SPECIMENOrdering Facility: [facility] Address: [address] [id number] Performed By: #### 2 4321-2, ####[facility] LABIA [id number] [place] [address] [place] PT EDon 2024 PT ED Normal [facility] THERAPY NTon 2024 THERAPY NT Normal [facility] THERAPY NT Normal [facility] ANES POSTPROC EVALon 024 ANES POSTPROC EVAL Normal [facility] ANES PRE-OPon 02-18-2024 ANES PRE-OP Normal [facility] Basic metabolic 2000 panelon 02-18-2024 Anion gap [Moles/Vol] 14 mmol/L Normal 9-18 [facility] Comment on above: Order Comment: Speci men Type: BLOOD SPECIMENOrdering Facility: [facility] Address: [address] [place] [address] Performed By: #### 2 4321-2, ####[facility] LABCLIA [id number] [address] [address] [place] Calcium [Mass/Vol] 9.4 mg/dL Normal 8.5-10.2 [facility] Comment on above: Order Comment: Speci men Type: BLOOD SPECIMENOrdering Facility: [facility] Address: [address] [place] [address] Performed By: #### 2 4321-2, 72932-5 ####[facility]CLIA [id number] [place] [address] [place] Chloride [Moles/Vol] 101 mmol/L Normal 97-105 [facility] Comment on above: Order Comment: Speci men Type: BLOOD SPECIMENOrdering Facility: [facility] Address: [address] [place] [address] Performed By: #### 2 4321-2, ####[facility] LABIA [id number] [place] [address] [place] CO2 [Moles/Vol] 22 mmol/L Normal 22-30 [facility] Comment on above: Order Comment: Speci men Type: BLOOD SPECIMENOrdering Facility: [facility] Address: [address] [place] [address] Performed By: #### 2 4321-2, ####[facility] [id number] [place] [address] [place] Creatinine [Mass/Vol] 2.02 mg/dL High 0.73-1.22 [facility] Comment on above: Order Comment: Speci men Type: BLOOD SPECIMENOrdering Facility: [facility] Address: [address] [place] [address] Performed By: #### 2 4321-2, ####[facility] LABIA [id number] [place] [address] [place] Creatinine and Glomerular filtration rate.predicted panel (S/P/Bld) 33 mL/min/1.73m??? Low >=60 [facility] Comment on above: Order Comment: Speci men Type: BLOOD SPECIMENOrdering Facility: [facility] [facility] Address: [address] [place] [address] Result Comment: Etta mated Glomerular Filtration Rate [...] actual GFR. Performed By: #### 2 43209-17, ####[facility] [id number] [address] [address] [place] Glucose [Mass/Vol] 90 mg/dL Normal 74-99 [facility] Comment on above: Order Comment: Speci men Type: BLOOD SPECIMENOrdering Facility: [facility] Address: [address] [place] [address] Result Comment: The [place] [employer] (ADA) provides guidance for cutoff [...] Standards of Medical Care in Diabetes 2016, [place] [employer]. Diabetes Care. 2016.39(Suppl 1). Performed By: #### 2 4320-10, ####[facility] [id number] [address] [address] [place] Potassium [Moles/Vol] 3.8 mmol/L Normal 3.7-5.1 [facility] Comment on above: Order Comment: Dylan men Type: BLOOD SPECIMENOrdering Facility: [facility] Address: [address] [place] [address] Performed By: #### 2 4320-10, ####[facility] [id number] [address] [address] [place] Sodium [Moles/Vol] 137 mmol/L Normal 136-144 [facility] Comment on above: Order Comment: Rozi men Type: BLOOD SPECIMENOrdering Facility: [facility] Address: [address] [place] [address] Performed By: #### 2 4321-2, 22269-3 ####[facility]IA [id number] [place] [address] [place] Urea nitrogen [Mass/Vol] 32 mg/dL High 9-24 [facility] Comment on above: Order Comment: Speci men Type: BLOOD SPECIMENOrdering Facility: [facility] Address: [address] [place] [address] Performed By: #### 2 4321-2, ####[facility] [id number] [place] [address] [place] CBC panel Auto (Bld)on 02-17 Erythrocyte distribution width (RBC) [Ratio] 17.0 % High 11.5-15.0 [facility] Comment on above: Order Comment: Speci men Type: BLOOD SPECIMENOrdering Facility: [facility] Address: [address] [place] [address] Performed By: #### 5 8410-2 ####[facility] [id number] [place] [address] [place] Hematocrit (Bld) [Volume fraction] 39.9 % Normal 39.0-51.0 [facility] Comment on above: Order Comment: Speci men Type: BLOOD SPECIMENOrdering Facility: [facility] Address: [address] [place] [address] Performed By: #### 5 8410-2 ####[facility] [id number] [place] [address] [place] Hemoglobin (Bld) [Mass/Vol] 12.5 g/dL Low 13.0-17.0 [facility] Comment on above: Order Comment: Speci men Type: BLOOD SPECIMENOrdering Facility: [facility] Address: [address] [place] [address] Performed By: #### 5 8410-2 ####[facility] [id number] [place] [address] [place] MCH (RBC) [Entitic mass] 26.8 pg Normal 26.0-34.0 [facility] Comment on above: Order Comment: Speci men Type: BLOOD SPECIMENOrdering Facility: [facility] Address: [address] [place] [address] Performed By: #### 5 8410-2 ####[facility] [id number] [place] [address] [place] MCHC (RBC) [Mass/Vol] 31.3 g/dL Normal 30.5-36.0 [facility] Comment on above: Order Comment: Speci men Type: BLOOD SPECIMENOrdering Facility: [facility] Address: [address] [place] [address] Performed By: #### 5 8410-2 ####[facility] [id number] [place] [address] [place] MCV (RBC) [Entitic vol] 85.6 fL Normal 80.0-100.0 [facility] Comment on above: Order Comment: Speci men Type: BLOOD SPECIMENOrdering Facility: [facility] Address: [address] [place] [address] Performed By: #### 5 8410-2 ####[facility] [id number] [place] [address] [place] Nucleated RBC (Bld) [#/Vol] 10*3/uL Normal <0.01 [facility] Comment on above: Order Comment: Speci men Type: BLOOD SPECIMENOrdering Facility: [facility] Address: [address] [place] [address] Performed By: #### 5 8410-2 ####[facility] [id number] [place] [address] [place] Platelet mean volume (Bld) [Entitic vol] 10.7 fL Normal 9.0-12.7 [facility] Comment on above: Order Comment: Speci men Type: BLOOD SPECIMENOrdering Facility: [facility] Address: [address] [place] [address] Performed By: #### 5 8410-2 ####[facility] [id number] [place] [address] [place] Platelets (Bld) [#/Vol] 226 10*3/uL Normal 150-400 [facility] Comment on above: Order Comment: Speci men Type: BLOOD SPECIMENOrdering Facility: [facility] Address: [address] [place] [address] Performed By: #### 5 8410-2 ####[facility] [id number] [place] [address] [place] RBC (Bld) [#/Vol] 4.66 10*6/uL Normal 4.20-6.00 [facility] [place] Comment on above: Order Comment: Speci men Type: BLOOD SPECIMENOrdering Facility: [facility] Address: [address] [place] [address] Performed By: #### 5 8410-2 ####[facility] [id number] [place] [address] [place] WBC (Bld) [#/Vol] 6.40 10*3/uL Normal 3.70-11.00 [facility] [place] Comment on above: Order Comment: Speci men Type: BLOOD SPECIMENOrdering Facility: [facility] Address: [address] [place] [address] Performed By: #### 5 8410-2 ####[facility]IA [id number] [place] [id number] [place] ECG COMPLETEon 02-18-2024 ECG COMPLETE Normal [facility] INTRAOPERATIVE ECHO PREon INTRAOPERATIVE ECHO PRE Normal [facility] Magnesium SerPl-mCncon 02-17 Magnesium [Mass/Vol] 2.6 mg/dL High 1.7-2.3 [facility] Comment on above: Order Comment: Dylan olvera Type: BLOOD SPECIMENOrdering Facility: [facility] Address: [address] [place] [address] Performed By: #### 2 4321-2, 34507-8 ####[facility] [id number] [place] [address] [place] PT panel Coag (PPP)on 2023 INR Coag (PPP) [Relative time] 1.2 {INR} Normal 0.9-1.3 [facility] Comment on above: Order Comment: Dylan olvera Type: BLOOD SPECIMENOrdering Facility: [facility] Address: [address] [place] [address] Result Comment: Loulou min K Antagonist (VKA) Therapeutic Range: INR 2 to 3 (Target INR of 2.5)Note: For patients treated with VKA drugs, such as warfarin, the [place] [employer] 2012 Guideline recommends [...] of 3).Olamide GH, et al. Chest 2012, 141:7S-47SNishimalin RA, et al. JACC 2017, 70: 252-289 Performed By: #### 3 4528-0, PTTAC ####[facility] [id number] [place] [address] [place] PT Coag (PPP) [Time] 13.0 s Normal 9.7-13.0 [facility] Comment on above: Order Comment: Speci men Type: BLOOD SPECIMENOrdering Facility: [facility] Address: [address] [place] [address] Performed By: #### 3 4528-0, PTTAC ####[facility] [id number] [place] [id number] [place] PTT, ANTICOAGULANT THERAPYon 02-18-2024 aPTT Coag (PPP) [Time] 57.8 s High 23.0-32.4 [facility] Comment on above: Order Comment: Speci men Type: BLOOD SPECIMENOrdering Facility: [facility] Address: [address] [place] [address] Performed By: #### 3 4528-0, PTTAC ####[facility] [id number] [place] [address] [place] THERAPY NTon 02-18-2024 THERAPY NT Normal [facility] THERAPY NT Normal [facility] ALLIED HEALTHon 02-17-2024 ALLIED HEALTH HNO ID: [id number] Author: FERMIN MIGUEL [employer] Service: Spiritual Care Author Type: [employer] Mechanic Type: Allied Health Filed: 02/17/2024 10:17 Note Text: Accepted anoint.,bless. Normal [facility] Basic metabolic 2000 panelon 02-17-2024 Anion gap [Moles/Vol] 16 mmol/L Normal 9-18 [facility] Comment on above: Order Comment: Speci men Type: BLOOD SPECIMENOrdering Facility: [facility] Address: [address] [place] [address] Performed By: #### 2 4321-2, 01097-2 ####[facility] [id number] [place] [address] [place] Calcium [Mass/Vol] 9.2 mg/dL Normal 8.5-10.2 [facility] Comment on above: Order Comment: Speci men Type: BLOOD SPECIMENOrdering Facility: [facility] Address: [address] [place] [address] Performed By: #### 2 432-2, ####[facility] [id number] [address] [address] [place] Chloride [Moles/Vol] 102 mmol/L Normal 97-105 [facility] Comment on above: Order Comment: Speci men Type: BLOOD SPECIMENOrdering Facility: [facility] Address: [address] [place] [address] Performed By: #### 2 432-2, ####[facility] [id number] [place] [address] [place] CO2 [Moles/Vol] 19 mmol/L Low 22-30 [facility] Comment on above: Order Comment: Speci men Type: BLOOD SPECIMENOrdering Facility: [facility] Address: [address] [place] [address] Performed By: #### 2 4322, ####[facility] [id number] [place] [address] [place] Creatinine [Mass/Vol] 2.01 mg/dL High 0.73-1.22 [facility] Comment on above: Order Comment: Speci men Type: BLOOD SPECIMENOrdering Facility: [facility] Address: [address] [place] [address] Performed By: #### 2 4322, ####[facility] [id number] [place] [id number] [place] Creatinine and Glomerular filtration rate.predicted panel (S/P/Bld) 33 mL/min/1.73m??? Low >=60 [facility] Comment on above: Order Comment: Speci men Type: BLOOD SPECIMENOrdering Facility: [facility] Address: [address] [place] [address] Result Comment: Etta mated Glomerular Filtration Rate [...] reflect actual GFR. Performed By: #### 2 4320-, ####[facility] [id number] [place] [address] [place] Glucose [Mass/Vol] 100 mg/dL High 74-99 [facility] Comment on above: Order Comment: Speci men Type: BLOOD SPECIMENOrdering Facility: [facility] Address: [address] [place] [address] Result Comment: The [place] [employer] (ADA) provides guidance for cutoff [...] Standards of Medical Care in Diabetes 2016, [place] [employer]. Diabetes Care. 2016.39(Suppl 1). Performed By: #### 2 4320-10, ####[facility] [id number] [place] [id number] [place] Potassium [Moles/Vol] 4.3 mmol/L Normal 3.7-5.1 [facility] Comment on above: Order Comment: Dylan men Type: BLOOD SPECIMENOrdering Facility: [facility] Address: [address] [place] [address] Performed By: #### 2 4320-10, ####[facility] [id number] [place] [address] [place] Sodium [Moles/Vol] 137 mmol/L Normal 136-144 [facility] Comment on above: Order Comment: Speci men Type: BLOOD SPECIMENOrdering Facility: [facility] Address: [address] [place] [address] Performed By: #### 2 4321-2, ####[facility] [id number] [place] [address] [place] Urea nitrogen [Mass/Vol] 35 mg/dL High 9-24 [facility] Comment on above: Order Comment: Speci men Type: BLOOD SPECIMENOrdering Facility: [facility] Address: [address] [place] [address] Performed By: #### 2 4321-2, ####[facility] [id number] [place] [address] [place] CBC panel Auto (Bld)on 02-16 Erythrocyte distribution width (RBC) [Ratio] 16.8 % High 11.5-15.0 [facility] Comment on above: Order Comment: Speci men Type: BLOOD SPECIMENOrdering Facility: [facility] Address: [address] [place] [address] Performed By: #### 5 8410-2 ####[facility] [id number] [place] [address] [place] Hematocrit (Bld) [Volume fraction] 38.7 % Low 39.0-51.0 [facility] Comment on above: Order Comment: Speci men Type: BLOOD SPECIMENOrdering Facility: [facility] Address: [address] [place] [address] Performed By: #### 5 8410-2 ####[facility] [id number] [place] [address] [place] Hemoglobin (Bld) [Mass/Vol] 11.8 g/dL Low 13.0-17.0 [facility] Comment on above: Order Comment: Speci men Type: BLOOD SPECIMENOrdering Facility: [facility] Address: [address] [place] [address] Performed By: #### 5 8410-2 ####[facility] [id number] [place] [address] [place] MCH (RBC) [Entitic mass] 26.3 pg Normal 26.0-34.0 [facility] Comment on above: Order Comment: Speci men Type: BLOOD SPECIMENOrdering Facility: [facility] Address: [address] [place] [address] Performed By: #### 5 8410-2 ####[facility] [id number] [place] [address] [place] MCHC (RBC) [Mass/Vol] 30.5 g/dL Normal 30.5-36.0 [facility] Comment on above: Order Comment: Speci men Type: BLOOD SPECIMENOrdering Facility: [facility] Address: [address] [place] [address] Performed By: #### 5 8410-2 ####[facility] [id number] [place] [address] [place] MCV (RBC) [Entitic vol] 86.4 fL Normal 80.0-100.0 [facility] Comment on above: Order Comment: Speci men Type: BLOOD SPECIMENOrdering Facility: [facility] Address: [address] [place] [address] Performed By: #### 5 8410-2 ####[facility] [id number] [place] [address] [place] Nucleated RBC (Bld) [#/Vol] 10*3/uL Normal <0.01 [facility] Comment on above: Order Comment: Speci men Type: BLOOD SPECIMENOrdering Facility: [facility] Address: [address] [place] [address] Performed By: #### 5 8410-2 ####[facility] [id number] [place] [address] [place] Platelet mean volume (Bld) [Entitic vol] 10.6 fL Normal 9.0-12.7 [facility] Comment on above: Order Comment: Speci men Type: BLOOD SPECIMENOrdering Facility: [facility] Address: [address] [place] [address] Performed By: #### 5 8410-2 ####[facility] [id number] [place] [address] [place] Platelets (Bld) [#/Vol] 214 10*3/uL Normal 150-400 [facility] Comment on above: Order Comment: Speci men Type: BLOOD SPECIMENOrdering Facility: [facility] Address: [address] [place] [address] Performed By: #### 5 8410-2 ####[facility] [id number] [place] [address] [place] RBC (Bld) [#/Vol] 4.48 10*6/uL Normal 4.20-6.00 [facility] [place] Comment on above: Order Comment: Speci men Type: BLOOD SPECIMENOrdering Facility: [facility] Address: [address] [place] [address] Performed By: #### 5 8410-2 ####[facility] [id number] [place] [address] [place] WBC (Bld) [#/Vol] 6.75 10*3/uL Normal 3.70-11.00 [facility] Comment on above: Order Comment: Speci men Type: BLOOD SPECIMENOrdering Facility: [facility] Address: [address] [place] [address] Performed By: #### 5 8410-2 ####[facility] [id number] [place] [address] [place] CNOVon 06-03-2024 CNOV Normal [facility] CONSULTon 02-17-2024 CONSULT Normal [facility] CONSULT Normal [facility] CONSULT PROGon 02-17-2024 CONSULT PROG Normal [facility] ECG COMPLETEon 02-17-2024 ECG COMPLETE Normal [facility] Magnesium SerPl-mCncon 02-16 Magnesium [Mass/Vol] 2.9 mg/dL High 1.7-2.3 [facility] Comment on above: Order Comment: Speci men Type: BLOOD SPECIMENOrdering Facility: [facility] Address: [address] [place] [address] Performed By: #### 2 4321-2, 36345-0 ####[facility] [id number] [place] [address] [place] NUTRITIONon 02-17-2024 NUTRITION Normal [facility] PTT, ANTICOAGULANT THERAPYon 02-17-2024 aPTT Coag (PPP) [Time] 33.3 s High 23.0-32.4 [facility] Comment on above: Order Comment: Speci men Type: BLOOD SPECIMENOrdering Facility: [facility] Address: [address] [place] [address] Performed By: #### P TTAC ####[facility] [id number] [place] [address] [place] XR ESOPHAGRAMon 02-17-2024 XR ESOPHAGRAM Normal [facility] Basic metabolic 2000 panelon 02-16-2024 Anion gap [Moles/Vol] 11 mmol/L Normal 9-18 [facility] Comment on above: Order Comment: Speci men Type: BLOOD SPECIMENOrdering Facility: [facility] Address: [address] [place] [address] Performed By: #### 1 9123-9, 52174-1 ####[facility] [id number] [place] [address] [place] Calcium [Mass/Vol] 9.3 mg/dL Normal 8.5-10.2 [facility] Comment on above: Order Comment: Speci men Type: BLOOD SPECIMENOrdering Facility: [facility] Address: [address] [place] [address] Performed By: #### 1 9123-9, 39111-1 ####[facility] [id number] [place] [id number] [place] Chloride [Moles/Vol] 101 mmol/L Normal 97-105 [facility] Comment on above: Order Comment: Speci men Type: BLOOD SPECIMENOrdering Facility: [facility] Address: [address] [place] [address] Performed By: #### 1 9123-9, 31436-2 ####[facility] [id number] [place] [address] [place] CO2 [Moles/Vol] 24 mmol/L Normal 22-30 [facility] Comment on above: Order Comment: Speci men Type: BLOOD SPECIMENOrdering Facility: [facility] Address: [address] [place] [address] Performed By: #### 1 9123-9, 80435-9 ####[facility] [id number] [place] [address] [place] Creatinine [Mass/Vol] 2.13 mg/dL High 0.73-1.22 [facility] Comment on above: Order Comment: Speci men Type: BLOOD SPECIMENOrdering Facility: [facility] Address: [address] [place] [address] Performed By: #### 1 9123-9, 19620-0 ####[facility] [id number] [place] [address] [place] Creatinine and Glomerular filtration rate.predicted panel (S/P/Bld) 31 mL/min/1.73m??? Low >=60 [facility] Comment on above: Order Comment: Speci men Type: BLOOD SPECIMENOrdering Facility: [facility] Address: [address] [place] [address] Result Comment: Etta mated Glomerular Filtration Rate [...] actual GFR. Performed By: #### 1 9123-9, 82658-6 ####[facility] [id number] [place] [address] [place] Glucose [Mass/Vol] 107 mg/dL High 74-99 [facility] Comment on above: Order Comment: Specgregory men Type: BLOOD SPECIMENOrdering Facility: [facility] Address: [address] [place] [address] Result Comment: The [place] [employer] (ADA) provides guidance for cutoff [...] Standards of Medical Care in Diabetes 2016, [place] [employer]. Diabetes Care. 2016.39(Suppl 1). Performed By: #### 1 9123-9, 81046-2 ####[facility] [id number] [place] [id number] [place] Potassium [Moles/Vol] 3.9 mmol/L Normal 3.7-5.1 [facility] Comment on above: Order Comment: Speci men Type: BLOOD SPECIMENOrdering Facility: [facility] Address: [address] [place] [address] Performed By: #### 1 9123-9, 08127-7 ####[facility] [id number] [place] [id number] [place] Sodium [Moles/Vol] 136 mmol/L Normal 136-144 [facility] Comment on above: Order Comment: Speci men Type: BLOOD SPECIMENOrdering Facility: [facility] Address: [address] [place] [address] Performed By: #### 1 9123-9, 76284-6 ####[facility] [id number] [place] [address] [place] Urea nitrogen [Mass/Vol] 35 mg/dL High 9-24 [facility] Comment on above: Order Comment: Speci men Type: BLOOD SPECIMENOrdering Facility: [facility] Address: [address] [place] [address] Performed By: #### 1 9123-9, 88260-3 ####[facility] [id number] [place] [address] [place] CASE MGT INIT ASSESon 2023 CASE MGT INIT ASSES Normal [facility] CBC W Auto Differential pane l (Bld)on 02-16-2024 Basophils (Bld) [#/Vol] 0.03 10*3/uL Normal <0.11 [facility] Comment on above: Order Comment: Speci men Type: BLOOD SPECIMENOrdering Facility: [facility] Address: [address] [place] [address] Performed By: #### 5 5454-3, 81720-0 ####[facility] [id number] [place] [address] [place] Basophils/100 WBC (Bld) 0.5 % Normal [facility] Comment on above: Order Comment: Speci men Type: BLOOD SPECIMENOrdering Facility: [facility] Address: [address] [place] [address] Performed By: #### 5 5454-3, 19500-6 ####[facility] [id number] [place] [address] [place] Differential cell count method Nom (Bld) Auto Normal [facility] Comment on above: Order Comment: Speci men Type: BLOOD SPECIMENOrdering Facility: [facility] Address: [address] [place] [address] Performed By: #### 5 5454-3, 25434-9 ####[facility] [id number] [place] [address] [place] Eosinophils (Bld) [#/Vol] 0.47 10*3/uL High <0.46 [facility] Comment on above: Order Comment: Speci men Type: BLOOD SPECIMENOrdering Facility: [facility] Address: [address] [place] [address] Performed By: #### 5 5454-3, 80237-0 ####[facility] [id number] [place] [address] [place] Eosinophils/100 WBC (Bld) 7.4 % Normal [facility] Comment on above: Order Comment: Speci men Type: BLOOD SPECIMENOrdering Facility: [facility] Address: [address] [place] [address] Performed By: #### 5 5454-3, 36848-1 ####[facility] LABCLIA [id number] [place] [address] [place] Erythrocyte distribution width (RBC) [Ratio] 16.5 % High 11.5-15.0 [facility] Comment on above: Order Comment: Speci men Type: BLOOD SPECIMENOrdering Facility: [facility] Address: [address] [place] [address] Performed By: #### 5 5454-3, 68757-9 ####[facility] LABCLIA [id number] [address] [id number] [address] [place] Hematocrit (Bld) [Volume fraction] 37.4 % Low 39.0-51.0 [facility] Comment on above: Order Comment: Speci men Type: BLOOD SPECIMENOrdering Facility: [facility] Address: [address] [place] [address] Performed By: #### 5 5454-3, 12346-8 ####[facility] LABCLIA [id number] [place] [address] [place] Hemoglobin (Bld) [Mass/Vol] 11.7 g/dL Low 13.0-17.0 [facility] Comment on above: Order Comment: Speci men Type: BLOOD SPECIMENOrdering Facility: [facility] Address: [address] [place] [address] Performed By: #### 5 5454-3, 02423-1 ####[facility] LABCLIA [id number] [place] [address] [place] Immature granulocytes (Bld) [#/Vol] 0.03 10*3/uL Normal <0.10 [facility] Comment on above: Order Comment: Speci men Type: BLOOD SPECIMENOrdering Facility: [facility] Address: [address] [place] [address] Performed By: #### 5 5454-3, 67329-4 ####[facility] LABCLIA [id number] [place] [address] [place] Immature granulocytes/100 WBC (Bld) 0.5 % Normal [facility] Comment on above: Order Comment: Speci men Type: BLOOD SPECIMENOrdering Facility: [facility] Address: [address] [place] [address] Performed By: #### 5 5454-3, 93905-0 ####[facility] LABCLIA [id number] [place] [address] [place] Lymphocytes (Bld) [#/Vol] 0.90 10*3/uL Low 1.00-4.00 [facility] Comment on above: Order Comment: Speci men Type: BLOOD SPECIMENOrdering Facility: [facility] Address: [address] [place] [address] Performed By: #### 5 5454-3, 92078-8 ####[facility] LABIA [id number] [place] [address] [place] Lymphocytes/100 WBC (Bld) 14.2 % Normal [facility] Comment on above: Order Comment: Speci men Type: BLOOD SPECIMENOrdering Facility: [facility] Address: [address] [place] [address] Performed By: #### 5 5454-3, 82456-4 ####[facility] LABIA [id number] [place] [address] [place] MCH (RBC) [Entitic mass] 26.8 pg Normal 26.0-34.0 [facility] Comment on above: Order Comment: Speci men Type: BLOOD SPECIMENOrdering Facility: [facility] Address: [address] [place] [address] Performed By: #### 5 5454-3, 03590-3 ####[facility] LABIA [id number] [place] [address] [place] MCHC (RBC) [Mass/Vol] 31.3 g/dL Normal 30.5-36.0 [facility] Comment on above: Order Comment: Speci men Type: BLOOD SPECIMENOrdering Facility: [facility] Address: [address] [place] [address] Performed By: #### 5 5454-3, 62594-8 ####[facility] LABIA [id number] [place] [address] [place] MCV (RBC) [Entitic vol] 85.8 fL Normal 80.0-100.0 [facility] Comment on above: Order Comment: Speci men Type: BLOOD SPECIMENOrdering Facility: [facility] Address: [address] [place] [address] Performed By: #### 5 5454-3, 91448-6 ####[facility] LABCLIA [id number] [place] [address] [place] Monocytes (Bld) [#/Vol] 0.64 10*3/uL Normal <0.87 [facility] Comment on above: Order Comment: Speci men Type: BLOOD SPECIMENOrdering Facility: [facility] Address: [address] [place] [address] Performed By: #### 5 5454-3, 15849-4 ####[facility] LABCLIA [id number] [place] [address] [place] Monocytes/100 WBC (Bld) 10.1 % Normal [facility] Comment on above: Order Comment: Speci men Type: BLOOD SPECIMENOrdering Facility: [facility] Address: [address] [place] [address] Performed By: #### 5 5454-3, 35331-3 ####[facility] LABCLIA [id number] [place] [address] [place] Neutrophils (Bld) [#/Vol] 4.28 10*3/uL Normal 1.45-7.50 [facility] Comment on above: Order Comment: Speci men Type: BLOOD SPECIMENOrdering Facility: [facility] Address: [address] [place] [address] Performed By: #### 5 5454-3, 38526-2 ####[facility] LABCLIA [id number] [place] [address] [place] Neutrophils/100 WBC (Bld) 67.3 % Normal [facility] Comment on above: Order Comment: Speci men Type: BLOOD SPECIMENOrdering Facility: [facility] Address: [address] [place] [address] Performed By: #### 5 5454-3, 44708-8 ####[facility] LABCLIA [id number] [place] [address] [place] Nucleated RBC (Bld) [#/Vol] 10*3/uL Normal <0.01 [facility] Comment on above: Order Comment: Speci men Type: BLOOD SPECIMENOrdering Facility: [facility] Address: [address] [place] [address] Performed By: #### 5 5454-3, 72285-4 ####[facility] LABIA [id number] [place] [address] [place] Nucleated RBC/100 WBC (Bld) [Ratio] 0.0 /100 WBC Normal [facility] Comment on above: Order Comment: Speci men Type: BLOOD SPECIMENOrdering Facility: [facility] Address: [address] [place] [address] Performed By: #### 5 5454-3, 21624-5 ####[facility] [id number] [place] [address] [place] Platelet mean volume (Bld) [Entitic vol] 10.6 fL Normal 9.0-12.7 [facility] Comment on above: Order Comment: Speci men Type: BLOOD SPECIMENOrdering Facility: [facility] Address: [address] [place] [address] Performed By: #### 5 5454-3, 94581-2 ####[facility] LABIA [id number] [place] [address] [place] Platelets (Bld) [#/Vol] 201 10*3/uL Normal 150-400 [facility] Comment on above: Order Comment: Speci men Type: BLOOD SPECIMENOrdering Facility: [facility] Address: [address] [place] [address] Performed By: #### 5 5454-3, 04252-4 ####[facility] LABIA [id number] [place] [address] [place] RBC (Bld) [#/Vol] 4.36 10*6/uL Normal 4.20-6.00 [facility] Comment on above: Order Comment: Speci men Type: BLOOD SPECIMENOrdering Facility: [facility] Address: [address] [place] [address] Performed By: #### 5 5454-3, 22276-0 ####[facility] LABCLIA [id number] [place] [address] [place] WBC (Bld) [#/Vol] 6.35 10*3/uL Normal 3.70-11.00 [facility] Comment on above: Order Comment: Speci men Type: BLOOD SPECIMENOrdering Facility: [facility] Address: [address] [place] [address] Performed By: #### 5 5454-3, 48008-0 ####[facility] LABCLIA [id number] [place] [address] [place] Comprehensive metabolic 2000 panelon 02-16-2024 Albumin [Mass/Vol] 2.9 g/dL Low 3.9-4.9 [facility] Comment on above: Order Comment: Speci men Type: BLOOD SPECIMENOrdering Facility: [facility] Address: [address] [place] [address] Performed By: #### 1 9123-9, LIPNF, 2276-4, 05506-3, 07298-4 ####[facility] LABCLIA [id number] [place] [address] [place] ALP [Catalytic activity/Vol] 97 U/L Normal 38-113 [facility] Comment on above: Order Comment: Speci men Type: BLOOD SPECIMENOrdering Facility: [facility] Address: [address] [place] [address] Performed By: #### 1 9123-9, LIPNF, 2276-4, 84748-2, 61756-8 ####[facility] LABCLIA [id number] [place] [address] [place] ALT [Catalytic activity/Vol] 15 U/L Normal 10-54 [facility] Comment on above: Order Comment: Speci men Type: BLOOD SPECIMENOrdering Facility: [facility] Address: [address] [place] [address] Performed By: #### 1 9123-9, LIPNF, 2276-4, 93694-6, 67251-6 ####[facility] LABCLIA [id number] [place] [address] [place] Anion gap [Moles/Vol] 14 mmol/L Normal 9-18 [facility] Comment on above: Order Comment: Speci men Type: BLOOD SPECIMENOrdering Facility: [facility] Address: [address] [place] [address] Performed By: #### 1 9123-9, LIPNF, 2276-4, 96693-1, 38527-8 ####[facility] LABCLIA [id number] [place] [address] [place] AST [Catalytic activity/Vol] 30 U/L Normal 14-40 [facility] Comment on above: Order Comment: Speci men Type: BLOOD SPECIMENOrdering Facility: [facility] Address: [address] [place] [address] Result Comment: Resu lts may be falsely increased due to interference from hemolysis. Suggest reorder as clinically indicated. Performed By: #### 1 9123-9, LIPNF, 2276-4, 36819-3, 41985-4 ####[facility] LABCLIA [id number] [place] [address] [place] Bilirubin [Mass/Vol] 0.8 mg/dL Normal 0.2-1.3 [facility] Comment on above: Order Comment: Speci men Type: BLOOD SPECIMENOrdering Facility: [facility] Address: [address] [place] [address] Performed By: #### 1 9123-9, LIPNF, 2276-4, 76175-6, 89701-9 ####[facility] LABCLIA [id number] [address] [address] [place] Calcium [Mass/Vol] 9.3 mg/dL Normal 8.5-10.2 [facility] Comment on above: Order Comment: Speci men Type: BLOOD SPECIMENOrdering Facility: [facility] Address: [address] [place] [address] Performed By: #### 1 9123-9, LIPNF, 6-4, 65846-9, 52748-6 ####[facility] LABIA [id number] [place] [address] [place] Chloride [Moles/Vol] 102 mmol/L Normal 97-105 [facility] Comment on above: Order Comment: Speci men Type: BLOOD SPECIMENOrdering Facility: [facility] Address: [address] [place] [address] Performed By: #### 1 9123-9, LIPNF, 6-4, 63970-6, 68592-6 ####[facility] LABIA [id number] [place] [address] [place] CO2 [Moles/Vol] 21 mmol/L Low 22-30 [facility] Comment on above: Order Comment: Speci men Type: BLOOD SPECIMENOrdering Facility: [facility] Address: [address] [place] [address] Performed By: #### 1 9123-9, LIPNF, 6-4, 97887-9, 33571-7 ####[facility] LABIA [id number] [place] [id number] [place] Creatinine [Mass/Vol] 2.02 mg/dL High 0.73-1.22 [facility] Comment on above: Order Comment: Speci men Type: BLOOD SPECIMENOrdering Facility: [facility] Address: [address] [place] [address] Performed By: #### 1 9123-9, LIPNF, 2276-4, 51454-8, 89631-8 ####[facility] LABIA [id number] [place] [address] [place] Creatinine and Glomerular filtration rate.predicted panel (S/P/Bld) 33 mL/min/1.73m??? Low >=60 [facility] Comment on above: Order Comment: Dylan olvera Type: BLOOD SPECIMENOrdering Facility: [facility] Address: [address] [place] [address] Result Comment: Etta mated Glomerular Filtration Rate [...] actual GFR. Performed By: #### 1 9123-9, LIPNF, 2276-4, 97674-0, 34878-6 ####[facility] LABCLIA [id number] [place] [id number] [place] Glucose [Mass/Vol] 112 mg/dL High 74-99 [facility] Comment on above: Order Comment: Dylan olvera Type: BLOOD SPECIMENOrdering Facility: [facility] Address: [address] [place] [address] Result Comment: The [place] Diabetes Association (ADA) provides guidance for cutoff [...] Standards of Medical Care in Diabetes 2016, [place] [employer] Association. Diabetes Care. 2016.39(Suppl 1). Performed By: #### 1 9123-9, LIPNF, 2276-4, 94135-8, 96298-7 ####[facility] LABCLIA [id number] [place] [id number] [place] Potassium [Moles/Vol] 3.9 mmol/L Normal 3.7-5.1 [facility] Comment on above: Order Comment: Speci men Type: BLOOD SPECIMENOrdering Facility: [facility] Address: [address] [place] [address] Performed By: #### 1 9123-9, LIPNF, 2276-4, 61319-6, 19516-1 ####[facility] LABIA [id number] [place] [address] [place] Protein [Mass/Vol] 6.3 g/dL Normal 6.3-8.0 [facility] Comment on above: Order Comment: Speci men Type: BLOOD SPECIMENOrdering Facility: [facility] Address: [address] [place] [address] Performed By: #### 1 9123-9, LIPNF, 2276-4, 29007-0, 22352-0 ####[facility] LABIA [id number] [place] [address] [place] Sodium [Moles/Vol] 137 mmol/L Normal 136-144 [facility] Comment on above: Order Comment: Speci men Type: BLOOD SPECIMENOrdering Facility: [facility] Address: [address] [place] [address] Performed By: #### 1 9123-9, LIPNF, 2276-4, 96850-5, 10114-4 ####[facility] LABIA [id number] [place] [address] [place] Urea nitrogen [Mass/Vol] 37 mg/dL High 9-24 [facility] Comment on above: Order Comment: Speci men Type: BLOOD SPECIMENOrdering Facility: [facility] Address: [address] [place] [address] Performed By: #### 1 9123-9, LIPNF, 2276-4, 83885-3, 05176-8 ####[facility] LABCLIA [id number] [address] [address] [place] AEV04te 02-16-2024 ECG01 Normal [facility] ECG01 Normal [facility] Ferritin SerPl-mCncon 2023 Ferritin [Mass/Vol] 377.0 ng/mL Normal 30.3-565.7 [facility] Comment on above: Order Comment: Speci men Type: BLOOD SPECIMENOrdering Facility: [facility] Address: [address] [place] [address] Performed By: #### 1 9123-9, LIPNF, 2276-4, 23522-2, 02821-5 ####[facility] LABCLIA [id number] [place] [id number] [place] HISTORY PHYSICALon HISTORY PHYSICAL Normal [facility] HbA1c (Bld)on 02-16-2024 Average glucose Estimated from glycated hemoglobin (Bld) [Mass/Vol] 128 mg/dL Normal [facility] Comment on above: Order Comment: Speci men Type: BLOOD SPECIMENOrdering Facility: [facility] Address: [address] [place] [address] Result Comment: eAG: (Estimated average glucose) is a calculated value from HgbA1c and is kiosk sales representative of the average blood glucose level in the last 2-3 month period. Performed By: #### 5 5454-3, 44625-8 ####[facility] LABCLIA [id number] [place] [address] [place] HbA1c (Bld) [Mass fraction] 6.1 % High 4.3-5.6 [facility] Comment on above: Order Comment: Speci men Type: BLOOD SPECIMENOrdering Facility: [facility] Address: [address] [place] [address] Result Comment: [place] Diabetes Association guidelines indicate that patients with HgbA1c in the range 5.7-6.4% are at increased risk for development of diabetes, and intervention by lifestyle modification may be beneficial. HgbA1c greater or equal to 6.5% is considered diagnostic of diabetes. Performed By: #### 5 5454-3, 38528-6 ####[facility] LABCLIA [id number] [address] [place] LIPID PANEL, NONFASTINGon Cholesterol [Mass/Vol] 118 mg/dL Normal <200 [facility] Comment on above: Order Comment: Speci men Type: BLOOD SPECIMENOrdering Facility: [facility] Address: [address] [place] [address] Result Comment: <200 mg/dL, Desirable 200-239 mg/dL, Borderline high>239 mg/dL, High Performed By: #### 1 9123-9, LIPNF, 2276-4, 91658-0, 46596-2 ####[facility] LABCLIA [id number] [place] [address] [place] HDL CHOLESTEROL, NF 28 mg/dL Low >39 [facility] Comment on above: Order Comment: Dylan olvera Type: BLOOD SPECIMENOrdering Facility: [facility] Address: [address] [place] [address] Result Comment: 40-5 9 mg/dL, Acceptable>59 mg/dL, High: Negative risk factor for coronary heart disease<40 mg/dL, Low: Positive risk factor for coronary heart disease Performed By: #### 1 9123-9, LIPNF, 2276-4, 78023-3, 32109-9 ####[facility] LABCLIA [id number] [address] [place] LDL CHOLESTEROL, NF 75 mg/dL Normal <100 [facility] Comment on above: Order Comment: Dylan olvera Type: BLOOD SPECIMENOrdering Facility: [facility] Address: [address] [place] [address] Result Comment: <100 mg/dL, Optimal 100-129 mg/dL, Near optimal/above optimal 130-159 mg/dL, Borderline high 160-189 mg/dL, High>189 mg/dL, Very highSecondary prevention optimal LDL Cholesterol levels are recommended to be < 70 mg/dL Performed By: #### 1 9123-9, LIPNF, 2276-4, 45513-8, 05059-1 ####[facility] LABCLIA [id number] [place] [address] [place] LDL/HDL RATIO, NF 2.68 mg/dL High <2.54 [facility] Comment on above: Order Comment: Speci men Type: BLOOD SPECIMENOrdering Facility: [facility] Address: [address] [place] [address] Result Comment: Refe rence:1. National Cholesterol Education Program ATP III Guideline At-A-Glance Quick Desk Reference: National Heart, Lung, and Blood [place]. National Institutes of Health. 2001: NIH Publication No. 01-3305.2. An International Atherosclerosis Society position paper: global recommendations for the management of dyslipidemia: executive summary, Atherosclerosis. 2014: 232(2):410-413. Performed By: #### 1 9123-9, LIPNF, 6-4, 27195-4, 81870-8 ####[facility] LABCLIA [id number] [place] [address] [place] NON HDL CHOL, NF 90 mg/dL Normal <130 [facility] Comment on above: Order Comment: Dylan men Type: BLOOD SPECIMENOrdering Facility: [facility] Address: [address] [place] [address] Result Comment: <130 mg/dL, Optimal 130-159 mg/dL, Near optimal/above optimal 160-189 mg/dL, Borderline high 190-219 mg/dL, High>219 mg/dL, Very highSecondary prevention optimal non HDL Cholesterol levels are recommended to be <100 mg/dL Performed By: #### 1 9123-9, LIPNF, 2276-4, 69022-1, 51725-4 ####[facility] LABCLIA [id number] [place] [address] [place] T CHOL/HDL RATIO NF 4.21 mg/dL Normal <5.10 [facility] Comment on above: Order Comment: Speci men Type: BLOOD SPECIMENOrdering Facility: [facility] Address: [address] [place] [address] Performed By: #### 1 9123-9, LIPNF, 2276-4, 66608-7, 93565-0 ####[facility] LABCLIA [id number] [place] [address] [place] TRIGLYCERIDES, NF 74 mg/dL Normal <150 [facility] Comment on above: Order Comment: Speci men Type: BLOOD SPECIMENOrdering Facility: [facility] Address: [address] [place] [address] Result Comment: <150 mg/dL, Normal 150-199 mg/dL, Borderline high 200-499 mg/dL, High>499 mg/dL, Very high Performed By: #### 1 9123-9, LIPNF, 2276-4, 41673-9, 70548-7 ####[facility] LABIA [id number] [place] [address] [place] VLDL CHOLESTEROL, NF 15 mg/dL Normal <30 [facility] Comment on above: Order Comment: Speci men Type: BLOOD SPECIMENOrdering Facility: [facility] Address: [address] [place] [address] Performed By: #### 1 9123-9, LIPNF, 2276-4, 08793-4, 32313-9 ####[facility] LABIA [id number] [place] [address] [place] Magnesium SerPl-mCncon 02-15 Magnesium [Mass/Vol] 2.5 mg/dL High 1.7-2.3 [facility] Comment on above: Order Comment: Speci men Type: BLOOD SPECIMENOrdering Facility: [facility] Address: [address] [place] [address] Performed By: #### 1 9123-9, 04025-6 ####[facility] LABCLIA [id number] [address] [address] [place] Magnesium [Mass/Vol] 2.5 mg/dL High 1.7-2.3 [facility] Comment on above: Order Comment: Speci men Type: BLOOD SPECIMENOrdering Facility: [facility] Address: [address] [place] [address] Performed By: #### 1 9123-9, LIPNF, 2276-4, 06080-1, 27304-7 ####[facility] LABCLIA [id number] [place] [address] [place] NT-proBNP [facility]-ncon 02-15 Natriuretic peptide.B prohormone N-Terminal [Mass/Vol] 92544 pg/mL High <450 [facility] Comment on above: Order Comment: Speci men Type: BLOOD SPECIMENOrdering Facility: [facility] Address: [address] [place] [address] Performed By: #### 1 9123-9, LIPNF, 2276-4, 52405-2, 21570-5 ####[facility] LABCLIA [id number] [place] [address] [place] PT EDon 02-16-2024 PT ED Normal [facility] TYPE + SCREENon 02-16-2024 ABO O Normal [facility] Comment on above: Order Comment: Speci men Type: BLOOD SPECIMENOrdering Facility: [facility] Address: [address] [place] [address] Performed By: #### T SCR ####[facility] BLOOD BANKCLIA [id number] [place] [address] [place] HISTORICAL AB SCR STATUS Negative Normal [facility] Comment on above: Order Comment: Speci men Type: BLOOD SPECIMENOrdering Facility: [facility] Address: [address] [place] [address] Performed By: #### T SCR ####[facility] BLOOD BANKCLIA [id number] [place] [address] [place] Rh Nom (Bld) Positive Normal [facility] Comment on above: Order Comment: Speci men Type: BLOOD SPECIMENOrdering Facility: [facility] Address: [address] [place] [address] Performed By: #### T SCR ####CC [facility] BLOOD BANKCLIA [id number] [place] [address] [place] TYPE AND SCREEN EXPIRATION 2024 23:59 Normal [facility] Comment on above: Order Comment: Speci men Type: BLOOD SPECIMENOrdering Facility: [facility] Address: [address] [place] [address] Performed By: #### T SCR ####[facility] BLOOD BANKCLIA [id number] [place] [address] [place] XR CHEST 1V FRONTAL PORTon 0 02-15-2024 XR CHEST 1V FRONTAL PORT Normal [facility] 25(OH)D3 SerPl-ncon 2023 25-hydroxyvitamin D3 [Mass/Vol] 65.1 ng/mL Normal 31.0-80.0 [facility] Comment on above: Order Comment: Speci men Type: BLOOD SPECIMENOrdering Facility: [facility] Address: [address] [place] [address] Result Comment: Clas sification of 25 [place] Vitamin D status:Deficiency/Insufficiency: < or = 30 ng/ml.Sufficiency/Optimal Levels: 31-80 ng/mLToxicity: > 100 ng/mL.Test performed by chemiluminescent immunoassay. Performed By: #### 1 989-3 ####[facility] LABCLIA [id number] [place] [address] [place] CBC W Auto Differential pane l (Bld)on 02-13-2024 Basophils (Bld) [#/Vol] 0.07 10*3/uL Normal <0.11 [facility] Comment on above: Order Comment: Speci men Type: BLOOD SPECIMENOrdering Facility: [facility] Address: [address] [place] [address] Performed By: #### 5 7021-8 ####[facility] LABCLIA [id number] [place] [address] Basophils/100 WBC (Bld) 0.8 % Normal [facility] Comment on above: Order Comment: Speci men Type: BLOOD SPECIMENOrdering Facility: [facility] Address: [address] [place] [address] Performed By: #### 5 7021-8 ####[facility] LABCLIA [id number] [place] [address] Differential cell count method Nom (Bld) Auto Normal [facility] Comment on above: Order Comment: Speci men Type: BLOOD SPECIMENOrdering Facility: [facility] Address: [address] [place], [place] [address] Performed By: #### 5 7021-8 ####[facility] LABCLIA [id number] [place] [address] Eosinophils (Bld) [#/Vol] 0.40 10*3/uL Normal <0.46 [facility] Comment on above: Order Comment: Speci men Type: BLOOD SPECIMENOrdering Facility: [facility] Address: [address] [place], [place] [address] Performed By: #### 5 7021-8 ####[facility] LABCLIA [id number] [place] [address] Eosinophils/100 WBC (Bld) 4.7 % Normal [facility] Comment on above: Order Comment: Speci men Type: BLOOD SPECIMENOrdering Facility: [facility] Address: [address] [place], [place] [address] Performed By: #### 5 7021-8 ####[facility] LABCLIA [id number] [place] [address] Erythrocyte distribution width (RBC) [Ratio] 16.6 % High 11.5-15.0 [facility] Comment on above: Order Comment: Speci men Type: BLOOD SPECIMENOrdering Facility: [facility] Address: [address] [place] [address] Performed By: #### 5 7021-8 ####[facility] LABCLIA [id number] [place] [address] Hematocrit (Bld) [Volume fraction] 42.2 % Normal 39.0-51.0 [facility] Comment on above: Order Comment: Speci men Type: BLOOD SPECIMENOrdering Facility: [facility] Address: [address] [place] [address] Performed By: #### 5 7021-8 ####[facility] LABIA [id number] [place] [id number] Hemoglobin (Bld) [Mass/Vol] 13.1 g/dL Normal 13.0-17.0 [facility] Comment on above: Order Comment: Speci men Type: BLOOD SPECIMENOrdering Facility: [facility] Address: [address] [place] [address] Performed By: #### 5 7021-8 ####[facility] LABCLIA [id number] [place] [address] Immature granulocytes (Bld) [#/Vol] 0.04 10*3/uL Normal <0.10 [facility] Comment on above: Order Comment: Speci men Type: BLOOD SPECIMENOrdering Facility: [facility] Address: [address] [place] [address] Performed By: #### 5 7021-8 ####[facility] LABCLIA [id number] [place] [address] Immature granulocytes/100 WBC (Bld) 0.5 % Normal [facility] Comment on above: Order Comment: Speci men Type: BLOOD SPECIMENOrdering Facility: [facility] Address: [address] [place] [address] Performed By: #### 5 7021-8 ####[facility] LABCLIA [id number] [place] [address] Lymphocytes (Bld) [#/Vol] 0.93 10*3/uL Low 1.00-4.00 [facility] Comment on above: Order Comment: Speci men Type: BLOOD SPECIMENOrdering Facility: [facility] Address: [address] [place], [place] [address] Performed By: #### 5 7021-8 ####[facility] LABCLIA [id number] [place] [address] Lymphocytes/100 WBC (Bld) 10.8 % Normal [facility] Comment on above: Order Comment: Speci men Type: BLOOD SPECIMENOrdering Facility: [facility] Address: [address] [place], [place] [address] Performed By: #### 5 7021-8 ####[facility] LABCLIA [id number] [place] [address] MCH (RBC) [Entitic mass] 27.0 pg Normal 26.0-34.0 [facility] Comment on above: Order Comment: Speci men Type: BLOOD SPECIMENOrdering Facility: [facility] Address: [address] [place] [address] Performed By: #### 5 7021-8 ####[facility] LABCLIA [id number] [place] [address] MCHC (RBC) [Mass/Vol] 31.0 g/dL Normal 30.5-36.0 [facility] Comment on above: Order Comment: Speci men Type: BLOOD SPECIMENOrdering Facility: [facility] Address: [address] [place] [address] Performed By: #### 5 7021-8 ####[facility] LABCLIA [id number] [place] [address] MCV (RBC) [Entitic vol] 86.8 fL Normal 80.0-100.0 [facility] Comment on above: Order Comment: Speci men Type: BLOOD SPECIMENOrdering Facility: [facility] Address: [address] [place] [address] Performed By: #### 5 7021-8 ####[facility] LABCLIA [id number] [place] [address] Monocytes (Bld) [#/Vol] 0.84 10*3/uL Normal <0.87 [facility] Comment on above: Order Comment: Speci men Type: BLOOD SPECIMENOrdering Facility: [facility] Address: [address] [place], [place] [address] Performed By: #### 5 7021-8 ####[facility] LABCLIA [id number] [place] [address] Monocytes/100 WBC (Bld) 9.8 % Normal [facility] Comment on above: Order Comment: Speci men Type: BLOOD SPECIMENOrdering Facility: [facility] Address: [address] [place] [address] Performed By: #### 5 7021-8 ####[facility] LABCLIA [id number] [place] [address] Neutrophils (Bld) [#/Vol] 6.31 10*3/uL Normal 1.45-7.50 [facility] Comment on above: Order Comment: Speci men Type: BLOOD SPECIMENOrdering Facility: [facility] Address: [address] [place] [address] Performed By: #### 5 7021-8 ####[facility] LABCLIA [id number] [place] [address] Neutrophils/100 WBC (Bld) 73.4 % Normal [facility] Comment on above: Order Comment: Speci men Type: BLOOD SPECIMENOrdering Facility: [facility] Address: [address] [place] [address] Performed By: #### 5 7021-8 ####[facility] LABCLIA [id number] [place] [address] Nucleated RBC (Bld) [#/Vol] 10*3/uL Normal <0.01 [facility] Comment on above: Order Comment: Speci men Type: BLOOD SPECIMENOrdering Facility: [facility] Address: [address] [place] [address] Performed By: #### 5 7021-8 ####[facility] LABCLIA [id number] [place] [address] Nucleated RBC/100 WBC (Bld) [Ratio] 0.0 /100 WBC Normal [facility] Comment on above: Order Comment: Speci men Type: BLOOD SPECIMENOrdering Facility: [facility] Address: [address] [place] [address] Performed By: #### 5 7021-8 ####[facility] LABCLIA [id number] [place] [address] Platelet mean volume (Bld) [Entitic vol] 10.2 fL Normal 9.0-12.7 [facility] Comment on above: Order Comment: Speci men Type: BLOOD SPECIMENOrdering Facility: [facility] Address: [address] [place] [address] Performed By: #### 5 7021-8 ####[facility] LABCLIA [id number] [place] [address] Platelets (Bld) [#/Vol] 218 10*3/uL Normal 150-400 [facility] Comment on above: Order Comment: Speci men Type: BLOOD SPECIMENOrdering Facility: [facility] Address: [address] [place] [address] Performed By: #### 5 7021-8 ####[facility] LABCLIA [id number] [place] [address] RBC (Bld) [#/Vol] 4.86 10*6/uL Normal 4.20-6.00 [facility] Comment on above: Order Comment: Speci men Type: BLOOD SPECIMENOrdering Facility: [facility] Address: [address] [place] [address] Performed By: #### 5 7021-8 ####[facility] LABCLIA [id number] [place] [address] WBC (Bld) [#/Vol] 8.59 10*3/uL Normal 3.70-11.00 [facility] Comment on above: Order Comment: Speci men Type: BLOOD SPECIMENOrdering Facility: [facility] Address: [address] [place], [place] [address] Performed By: #### 5 7021-8 ####[facility] LABCLIA [id number] [place] [address] Comprehensive metabolic 2000 panelon 02-13-2024 Albumin [Mass/Vol] 3.4 g/dL Low 3.9-4.9 [facility] Comment on above: Order Comment: Speci men Type: BLOOD SPECIMENOrdering Facility: [facility] Address: [address] [place] [address] Performed By: #### 2 4323-8 ####[facility] LABCLIA [id number] [place] [address] ALP [Catalytic activity/Vol] 115 U/L High 38-113 [facility] Comment on above: Order Comment: Speci men Type: BLOOD SPECIMENOrdering Facility: [facility] Address: [address] [place] [address] Performed By: #### 2 4323-8 ####[facility] LABCLIA [id number] [place] [address] ALT [Catalytic activity/Vol] 11 U/L Normal 10-54 [facility] Comment on above: Order Comment: Speci men Type: BLOOD SPECIMENOrdering Facility: [facility] Address: [address] [place] [address] Performed By: #### 2 4323-8 ####[facility] LABCLIA [id number] [place] [address] Anion gap [Moles/Vol] 9 mmol/L Normal 9-18 [facility] Comment on above: Order Comment: Speci men Type: BLOOD SPECIMENOrdering Facility: [facility] Address: [address] [place] [address] Performed By: #### 2 4323-8 ####[facility] LABCLIA [id number] [place] [address] AST [Catalytic activity/Vol] 19 U/L Normal 14-40 [facility] Comment on above: Order Comment: Speci men Type: BLOOD SPECIMENOrdering Facility: [facility] Address: [address] [place] [address] Performed By: #### 2 4323-8 ####[facility] LABCLIA [id number] [place] [address] Bilirubin [Mass/Vol] 0.9 mg/dL Normal 0.2-1.3 [facility] Comment on above: Order Comment: Speci men Type: BLOOD SPECIMENOrdering Facility: [facility] Address: [address] [place] [address] Performed By: #### 2 4323-8 ####[facility] LABCLIA [id number] [place] [address] Calcium [Mass/Vol] 9.9 mg/dL Normal 8.5-10.2 [facility] Comment on above: Order Comment: Speci men Type: BLOOD SPECIMENOrdering Facility: [facility] Address: [address] [place] [address] Performed By: #### 2 4323-8 ####[facility] LABCLIA [id number] [place] [address] Chloride [Moles/Vol] 99 mmol/L Normal 97-105 [facility] Comment on above: Order Comment: Speci men Type: BLOOD SPECIMENOrdering Facility: [facility] Address: [address] [place] [address] Performed By: #### 2 4323-8 ####[facility] LABCLIA [id number] [place] [address] CO2 [Moles/Vol] 27 mmol/L Normal 22-30 [facility] Comment on above: Order Comment: Speci men Type: BLOOD SPECIMENOrdering Facility: [facility] Address: [facility] [place] [address] Performed By: #### 2 4323-8 ####[facility] LABCLIA [id number] [place] [address] Creatinine [Mass/Vol] 2.23 mg/dL High 0.73-1.22 [facility] Comment on above: Order Comment: Speci men Type: BLOOD SPECIMENOrdering Facility: [facility] Address: [address] [place], [place] [address] Performed By: #### 2 4323-8 ####[facility] LABCLIA [id number] [place] [address] Creatinine and Glomerular filtration rate.predicted panel (S/P/Bld) 29 mL/min/1.73m??? Low >=60 [facility] Comment on above: Order Comment: Speci men Type: BLOOD SPECIMENOrdering Facility: [facility] Address: [address] [place] [address] Result Comment: Etta mated Glomerular Filtration Rate [...] actual GFR. Performed By: #### 2 4323-8 ####[facility] LABCLIA [id number] [place] [address] Glucose [Mass/Vol] 130 mg/dL High 74-99 [facility] Comment on above: Order Comment: Speci men Type: BLOOD SPECIMENOrdering Facility: [facility] Address: [address] [place] [address] Result Comment: The [place] [employer] (ADA) provides guidance for cutoff [...] Standards of Medical Care in Diabetes 2016, [place] [employer]. Diabetes Care. 2016.39(Suppl 1). Performed By: #### 2 4323-8 ####[facility] LABCLIA [id number] [place] [address] Potassium [Moles/Vol] 4.0 mmol/L Normal 3.7-5.1 [facility] Comment on above: Order Comment: Speci may Type: BLOOD SPECIMENOrdering Facility: [facility] Address: [address] [place] [address] Performed By: #### 2 4323-8 ####[facility] LABCLIA [id number] [place] [address] Protein [Mass/Vol] 7.3 g/dL Normal 6.3-8.0 [facility] Comment on above: Order Comment: Speci men Type: BLOOD SPECIMENOrdering Facility: [facility] Address: [address] [place], [place] [address] Performed By: #### 2 4323-8 ####[facility] LABCLIA [id number] [place] [address] Sodium [Moles/Vol] 135 mmol/L Low 136-144 [facility] Comment on above: Order Comment: Speci men Type: BLOOD SPECIMENOrdering Facility: [facility] Address: [address] [place] [address] Performed By: #### 2 4323-8 ####[facility] LABCLIA [id number] [place] [address] Urea nitrogen [Mass/Vol] 37 mg/dL High 9-24 [facility] Comment on above: Order Comment: Speci men Type: BLOOD SPECIMENOrdering Facility: [facility] Address: [address] [place], [place] [address] Performed By: #### 2 4323-8 ####[facility] LABCLIA [id number] [place] [address] Iron and Iron binding capaci ty panelon 02-13-2024 Iron [Mass/Vol] 21 ug/dL Low 41-186 [facility] Comment on above: Order Comment: Speci men Type: BLOOD SPECIMENOrdering Facility: [facility] Address: [address] [place], [place] [address] Performed By: #### 5 0190-8, 3051-0, 3024-7, 02057-6 ####[facility] [id number] [place] [address] [place] Iron binding capacity [Mass/Vol] 202 ug/dL Low 232-386 [facility] Comment on above: Order Comment: Speci men Type: BLOOD SPECIMENOrdering Facility: [facility] Address: [address] [place], [place] [address] Performed By: #### 5 0190-8, 3051-0, 3024-7, 09533-1 ####[facility] LABIA [id number] [address] [address] [place] Iron/TIBC [Molar ratio] 10.4 % Low 15.0-57.0 [facility] Comment on above: Order Comment: Speci men Type: BLOOD SPECIMENOrdering Facility: [facility] Address: [address] [place] [address] Performed By: #### 5 0190-8, 3051-0, 3024-7, 49578-3 ####[facility] LABCLIA [id number] [place] [address] [place] NT-proBNP SerPl-mCncon 02-12 Natriuretic peptide.B prohormone N-Terminal [Mass/Vol] 83879 pg/mL High <450 [facility] Comment on above: Order Comment: Speci men Type: BLOOD SPECIMENOrdering Facility: [facility] Address: [address] [place] [address] Performed By: #### 5 0190-8, 3051-0, 302-7, 57242-0 ####[facility] LABIA [id number] [place] [address] [place] T3Free SerPl-mCncon 20 24 Free T3 [Mass/Vol] 3.2 pg/mL Normal 2.3-4.1 [facility] Comment on above: Order Comment: Speci men Type: BLOOD SPECIMENOrdering Facility: [facility] Address: [address] [place] [address] Performed By: #### 5 0190-8, 3051-0, 3024-7, 14955-0 ####[facility] LABIA [id number] [place] [address] [place] T4 Free SerPl-mCncon 2 024 Free T4 [Mass/Vol] 1.2 ng/dL Normal 0.9-1.7 [facility] Comment on above: Order Comment: Speci men Type: BLOOD SPECIMENOrdering Facility: [facility] Address: [address] [place] [address] Performed By: #### 5 0190-8, 3051-0, 3024-7, 26365-7 ####[facility] LABIA [id number] [place] [id number] [place] TSH SerPl-aCncon 02-13-2024 TSH Qn 0.207 m[IU]/L Low 0.270-4.200 [facility] Comment on above: Order Comment: Speci men Type: BLOOD SPECIMENOrdering Facility: [facility] Address: [facility] [place] [address] Performed By: #### 3 016-3 ####[facility] LABCLIA [id number] [place] [id number] [place] CNPNon 02-12-2024 CNPN Normal [facility] CNPNon 02-11-2024 CNPN Normal [facility] Basic metabolic 2000 panelon 02-05-2024 Anion gap [Moles/Vol] 16 mmol/L 9 - 18 mmol/L [facility] Calcium [Mass/Vol] 9.6 mg/dL 8.5 - 10. 2 mg/dL [facility] Chloride [Moles/Vol] 95 mmol/L Low 97 - 105 mmol/L [facility] CO2 [Moles/Vol] 24 mmol/L 22 - 30 mmol/L [facility] Creatinine [Mass/Vol] 2.50 mg/dL High 0.73 - 1.22 mg/dL [facility] GFR/1.73 sq M.predicted among non-blacks MDRD (S/P/Bld) [Vol rate/Area] 25 mL/min/{1.73_m2} Low - PINF [facility] Comment on above: Estimated Glomerular Filtration Rate [...] 103 mg/dL High 74 - 99 mg/dL [facility] Comment on above: The [place] Diab[employer] s Association (ADA) provides guidance for [...] Standards of Medical Care in Diabetes 2016, [place] [employer]. Diabetes Care. 2016.39(Suppl 1). Potassium [Moles/Vol] 3.5 mmol/L Low 3.7 - 5.1 mmol/L [facility] Sodium [Moles/Vol] 135 mmol/L Low 136 - 144 mmol/L [facility] Urea nitrogen [Mass/Vol] 43 mg/dL High 9 - 24 mg/dL [facility] Anion gap [Moles/Vol] 16 mmol/L Normal 9-18 [facility] Comment on above: Order Comment: Dylan olvera Type: BLOOD SPECIMENOrdering Facility: [facility] Address: [address] [place] [address] Performed By: #### 2 4321-2, 67851-6 ####[facility] LABCLIA [id number] [place] [address] [place] Calcium [Mass/Vol] 9.6 mg/dL Normal 8.5-10.2 [facility] Comment on above: Order Comment: Dylan olvera Type: BLOOD SPECIMENOrdering Facility: [facility] Address: [address] [place] [address] Performed By: #### 2 4321-2, 58913-1 ####[facility] LABCLIA [id number] [place] [address] [place] Chloride [Moles/Vol] 95 mmol/L Low 97-105 [facility] Comment on above: Order Comment: Dylan olvera Type: BLOOD SPECIMENOrdering Facility: [facility] Address: [address] [place] [address] Performed By: #### 2 4321-2, 78595-3 ####[facility] LABCLIA [id number] [place] [address] [place] CO2 [Moles/Vol] 24 mmol/L Normal 22-30 [facility] Comment on above: Order Comment: Rozi men Type: BLOOD SPECIMENOrdering Facility: [facility] Address: [address] [place] [address] Performed By: #### 2 4321-2, 00751-5 ####[facility] LABCLIA [id number] [place] [address] [place] Creatinine [Mass/Vol] 2.50 mg/dL High 0.73-1.22 [facility] Comment on above: Order Comment: Rozi men Type: BLOOD SPECIMENOrdering Facility: [facility] Address: [address] [place] [address] Performed By: #### 2 4321-2, 06234-2 ####[facility] LABCLIA [id number] [place] [address] [place] Creatinine and Glomerular filtration rate.predicted panel (S/P/Bld) 25 mL/min/1.73m??? Low >=60 [facility] Comment on above: Order Comment: Dylan olvera Type: BLOOD SPECIMENOrdering Facility: [facility] Address: [address] [place] [address] Result Comment: Etta mated Glomerular Filtration Rate [...] actual GFR. Performed By: #### 2 4321-2, 47769-9 ####[facility] LABCLIA [id number] [place] [address] [place] Glucose [Mass/Vol] 103 mg/dL High 74-99 [facility] Comment on above: Order Comment: Rozi men Type: BLOOD SPECIMENOrdering Facility: [facility] Address: [address] [place] [address] Result Comment: The [place] Diabetes Association (ADA) provides guidance for cutoff [...] Standards of Medical Care in Diabetes 2016, [place] [employer]. Diabetes Care. 2016.39(Suppl 1). Performed By: #### 2 4321-2, 65800-3 ####[facility] LABCLIA [id number] [place] [address] [place] Potassium [Moles/Vol] 3.5 mmol/L Low 3.7-5.1 [facility] Comment on above: Order Comment: Speci men Type: BLOOD SPECIMENOrdering Facility: [facility] Address: [address] [place] [address] Performed By: #### 2 4321-2, 01360-9 ####[facility] LABIA [id number] [place] [address] [place] Sodium [Moles/Vol] 135 mmol/L Low 136-144 [facility] Comment on above: Order Comment: Speci men Type: BLOOD SPECIMENOrdering Facility: [facility] Address: [address] [place] [address] Performed By: #### 2 4321-2, 99670-6 ####[facility] LABCLIA [id number] [place] [address] [place] Urea nitrogen [Mass/Vol] 43 mg/dL High 9-24 [facility] Comment on above: Order Comment: Speci men Type: BLOOD SPECIMENOrdering Facility: [facility] Address: [address] [place] [address] Performed By: #### 2 4321-2, 79327-4 ####[facility] LABCLIA [id number] [place] [address] [place] CBC W Auto Differential pane l (Bld)on 02-05-2024 Basophils (Bld) [#/Vol] 0.04 10*3/uL [facility] Basophils/100 WBC (Bld) 0.5 % [facility] Differential cell count method Nom (Bld) Auto [facility] Eosinophils (Bld) [#/Vol] 0.41 10*3/uL [facility] Eosinophils/100 WBC (Bld) 5.5 % [facility] Erythrocyte distribution width (RBC) [Ratio] 16.2 % High 11.5 - 15.0 % [facility] Hematocrit (Bld) [Volume fraction] 40.2 % 39.0 - 51.0 % [facility] Hemoglobin (Bld) [Mass/Vol] 12.4 g/dL Low 13.0 - 17.0 g/dL [facility] Immature granulocytes (Bld) [#/Vol] 0.04 10*3/uL [facility] Immature granulocytes/100 WBC (Bld) 0.5 % [facility] Interpretation and review of laboratory results Abnormal [facility] Lymphocytes (Bld) [#/Vol] 1.20 10*3/uL [facility] Lymphocytes/100 WBC (Bld) 16.0 % [facility] MCH (RBC) [Entitic mass] 27.0 pg 26.0 - 34.0 pg [facility] MCHC (RBC) [Mass/Vol] 30.8 g/dL 30.5 - 36.0 g/dL [facility] MCV (RBC) [Entitic vol] 87.6 fL 80.0 - 100.0 fL [facility] Monocytes (Bld) [#/Vol] 0.82 10*3/uL [facility] Monocytes/100 WBC (Bld) 10.9 % [facility] Neutrophils (Bld) [#/Vol] 5.00 10*3/uL [facility] Neutrophils/100 WBC (Bld) 66.6 % [facility] Nucleated RBC (Bld) [#/Vol] [facility] Nucleated RBC/100 WBC (Bld) [Ratio] 0.0 % /100 WBC [facility] Platelet mean volume (Bld) [Entitic vol] 10.4 fL 9.0 - 12.7 fL [facility] Platelets (Bld) [#/Vol] 224 10*3/uL [facility] RBC (Bld) [#/Vol] 4.59 10*6/uL 4.20 - 6.0 0 m/uL [facility] WBC (Bld) [#/Vol] 7.51 10*3/uL [facility] Basophils (Bld) [#/Vol] 0.04 10*3/uL Normal <0.11 [facility] Comment on above: Order Comment: Speci men Type: BLOOD SPECIMENOrdering Facility: [facility] Address: [address] [place] [address] Performed By: #### 5 7021-8 ####[facility] LABCLIA [id number] [place] [address] [place] Basophils/100 WBC (Bld) 0.5 % Normal [facility] Comment on above: Order Comment: Speci men Type: BLOOD SPECIMENOrdering Facility: [facility] Address: [address] [place] [address] Performed By: #### 5 7021-8 ####[facility] LABCLIA [id number] [place] [address] [place] Differential cell count method Nom (Bld) Auto Normal [facility] Comment on above: Order Comment: Speci men Type: BLOOD SPECIMENOrdering Facility: [facility] Address: [address] [place] [address] Performed By: #### 5 7021-8 ####[facility] LABCLIA [id number] [place] [address] [place] Eosinophils (Bld) [#/Vol] 0.41 10*3/uL Normal <0.46 [facility] Comment on above: Order Comment: Speci men Type: BLOOD SPECIMENOrdering Facility: [facility] Address: [address] [place] [address] Performed By: #### 5 7021-8 ####[facility] LABCLIA [id number] [place] [address] [place] Eosinophils/100 WBC (Bld) 5.5 % Normal [facility] Comment on above: Order Comment: Speci men Type: BLOOD SPECIMENOrdering Facility: [facility] Address: [address] [place] [address] Performed By: #### 5 7021-8 ####[facility] LABIA [id number] [place] [address] [place] Erythrocyte distribution width (RBC) [Ratio] 16.2 % High 11.5-15.0 [facility] Comment on above: Order Comment: Speci men Type: BLOOD SPECIMENOrdering Facility: [facility] Address: [address] [place] [address] Performed By: #### 5 7021-8 ####[facility] LABIA [id number] [place] [address] [place] Hematocrit (Bld) [Volume fraction] 40.2 % Normal 39.0-51.0 [facility] Comment on above: Order Comment: Speci men Type: BLOOD SPECIMENOrdering Facility: [facility] Address: [address] [place] [address] Performed By: #### 5 7021-8 ####[facility] LABIA [id number] [place] [address] [place] Hemoglobin (Bld) [Mass/Vol] 12.4 g/dL Low 13.0-17.0 [facility] Comment on above: Order Comment: Speci men Type: BLOOD SPECIMENOrdering Facility: [facility] Address: [address] [place] [address] Performed By: #### 5 7021-8 ####[facility] LABIA [id number] [place] [address] [place] Immature granulocytes (Bld) [#/Vol] 0.04 10*3/uL Normal <0.10 [facility] Comment on above: Order Comment: Speci men Type: BLOOD SPECIMENOrdering Facility: [facility] Address: [address] [place] [address] Performed By: #### 5 7021-8 ####[facility] LABCLIA [id number] [place] [address] [place] Immature granulocytes/100 WBC (Bld) 0.5 % Normal [facility] Comment on above: Order Comment: Speci men Type: BLOOD SPECIMENOrdering Facility: [facility] Address: [address] [place] [address] Performed By: #### 5 7021-8 ####[facility] LABCLIA [id number] [place] [address] [place] Lymphocytes (Bld) [#/Vol] 1.20 10*3/uL Normal 1.00-4.00 [facility] Comment on above: Order Comment: Speci men Type: BLOOD SPECIMENOrdering Facility: [facility] Address: [address] [place] [address] Performed By: #### 5 7021-8 ####[facility] LABCLIA [id number] [place] [address] [place] Lymphocytes/100 WBC (Bld) 16.0 % Normal [facility] Comment on above: Order Comment: Speci men Type: BLOOD SPECIMENOrdering Facility: [facility] Address: [address] [place] [address] Performed By: #### 5 7021-8 ####[facility] LABCLIA [id number] [place] [address] [place] MCH (RBC) [Entitic mass] 27.0 pg Normal 26.0-34.0 [facility] Comment on above: Order Comment: Speci men Type: BLOOD SPECIMENOrdering Facility: [facility] Address: [address] [place] [address] Performed By: #### 5 7021-8 ####[facility] LABCLIA [id number] [place] [address] [place] MCHC (RBC) [Mass/Vol] 30.8 g/dL Normal 30.5-36.0 [facility] Comment on above: Order Comment: Speci men Type: BLOOD SPECIMENOrdering Facility: [facility] Address: [address] [place] [address] Performed By: #### 5 7021-8 ####[facility] LABCLIA [id number] [place] [address] [place] MCV (RBC) [Entitic vol] 87.6 fL Normal 80.0-100.0 [facility] Comment on above: Order Comment: Speci men Type: BLOOD SPECIMENOrdering Facility: [facility] Address: [address] [place] [address] Performed By: #### 5 7021-8 ####[facility] LABCLIA [id number] [place] [address] [place] Monocytes (Bld) [#/Vol] 0.82 10*3/uL Normal <0.87 [facility] Comment on above: Order Comment: Speci men Type: BLOOD SPECIMENOrdering Facility: [facility] Address: [address] [place] [address] Performed By: #### 5 7021-8 ####[facility] LABCLIA [id number] [place] [address] [place] Monocytes/100 WBC (Bld) 10.9 % Normal [facility] Comment on above: Order Comment: Speci men Type: BLOOD SPECIMENOrdering Facility: [facility] Address: [address] [place] [address] Performed By: #### 5 7021-8 ####[facility] LABCLIA [id number] [place] [address] [place] Neutrophils (Bld) [#/Vol] 5.00 10*3/uL Normal 1.45-7.50 [facility] Comment on above: Order Comment: Speci men Type: BLOOD SPECIMENOrdering Facility: [facility] Address: [address] [place] [address] Performed By: #### 5 7021-8 ####[facility] LABCLIA [id number] [place] [address] [place] Neutrophils/100 WBC (Bld) 66.6 % Normal [facility] Comment on above: Order Comment: Speci men Type: BLOOD SPECIMENOrdering Facility: [facility] Address: [address] [place] [address] Performed By: #### 5 7021-8 ####[facility] LABCLIA [id number] [place] [address] [place] Nucleated RBC (Bld) [#/Vol] 10*3/uL Normal <0.01 [facility] Comment on above: Order Comment: Speci men Type: BLOOD SPECIMENOrdering Facility: [facility] Address: [address] [place] [address] Performed By: #### 5 7021-8 ####[facility] LABCLIA [id number] [place] [address] [place] Nucleated RBC/100 WBC (Bld) [Ratio] 0.0 /100 WBC Normal [facility] Comment on above: Order Comment: Speci men Type: BLOOD SPECIMENOrdering Facility: [facility] Address: [address] [place] [address] Performed By: #### 5 7021-8 ####[facility] LABCLIA [id number] [place] [address] [place] Platelet mean volume (Bld) [Entitic vol] 10.4 fL Normal 9.0-12.7 [facility] Comment on above: Order Comment: Speci men Type: BLOOD SPECIMENOrdering Facility: [facility] Address: [address] [place] [address] Performed By: #### 5 7021-8 ####[facility] LABIA [id number] [place] [address] [place] Platelets (Bld) [#/Vol] 224 10*3/uL Normal 150-400 [facility] Comment on above: Order Comment: Speci men Type: BLOOD SPECIMENOrdering Facility: [facility] Address: [address] [place] [address] Performed By: #### 5 7021-8 ####[facility] LABIA [id number] [place] [address] [place] RBC (Bld) [#/Vol] 4.59 10*6/uL Normal 4.20-6.00 [facility] Comment on above: Order Comment: Speci men Type: BLOOD SPECIMENOrdering Facility: [facility] Address: [address] [place] [address] Performed By: #### 5 7021-8 ####[facility] LABIA [id number] [place] [address] [place] WBC (Bld) [#/Vol] 7.51 10*3/uL Normal 3.70-11.00 [facility] Comment on above: Order Comment: Speci men Type: BLOOD SPECIMENOrdering Facility: [facility] Address: [address] [place] [address] Performed By: #### 5 7021-8 ####[facility] LABIA [id number] [place] [address] [place] CNNURSEon 02-05-2024 CNNURSE Normal [facility] ECG COMPLETEon 02-05-2024 ECG COMPLETE Normal [facility] NT PRO BNPon 02-05-2024 Natriuretic peptide.B prohormone N-Terminal [Mass/Vol] 46281 pg/mL High NINF - 450 pg/mL [facility] NT-proBNP SerPl-ncon 02-04 Natriuretic peptide.B prohormone N-Terminal [Mass/Vol] 06840 pg/mL High <450 [facility] Comment on above: Order Comment: Speci men Type: BLOOD SPECIMENOrdering Facility: [facility] Address: [address] [place] [address] Performed By: #### 2 4321-2, 50982-5 ####[facility] LABCLIA [id number] [place] [address] [place] No Panel Informationon 02-04 Interpretation and review of laboratory results Abnormal [facility] CNNURSEon 01-30-2024 [facility] CNPNon 01-14-2024 CNPN Normal [facility] CNNURSEon 01-10-2024 CNNURSE Normal [facility] CNOVon 01-10-2024 CNOV Normal [facility] Comprehensive metabolic 2000 panelon 01-10-2024 Albumin [Mass/Vol] 3.7 g/dL Low 3.9 - 4.9 g/dL [facility] ALP [Catalytic activity/Vol] 109 U/L 38 - 113 U/L [facility] ALT [Catalytic activity/Vol] 10 U/L 10 - 54 U/L [facility] Anion gap [Moles/Vol] 14 mmol/L 9 - 18 mmol/L [facility] AST [Catalytic activity/Vol] 20 U/L 14 - 40 U/L [facility] Bilirubin [Mass/Vol] 1.1 mg/dL 0.2 - 1.3 mg/dL [facility] Calcium [Mass/Vol] 9.8 mg/dL 8.5 - 10. 2 mg/dL [facility] Chloride [Moles/Vol] 95 mmol/L Low 97 - 105 mmol/L [facility] CO2 [Moles/Vol] 25 mmol/L 22 - 30 mmol/L [facility] Creatinine [Mass/Vol] 2.50 mg/dL High 0.73 - 1.22 mg/dL [facility] GFR/1.73 sq M.predicted among non-blacks MDRD (S/P/Bld) [Vol rate/Area] 25 mL/min/{1.73_m2} Low - PINF [facility] Comment on above: Estimated Glomerular Filtration Rate [...] 105 mg/dL High 74 - 99 mg/dL [facility] Comment on above: The [place] [employer] Association (ADA) provides guidance for [...] Standards of Medical Care in Diabetes 2016, [place] [employer]. Diabetes Care. 2016.39(Suppl 1). Potassium [Moles/Vol] 3.9 mmol/L 3.7 - 5.1 mmol/L [facility] Protein [Mass/Vol] 7.2 g/dL 6.3 - 8.0 g/dL [facility] Sodium [Moles/Vol] 134 mmol/L Low 136 - 144 mmol/L [facility] Urea nitrogen [Mass/Vol] 44 mg/dL High 9 - 24 mg/dL [facility] Albumin [Mass/Vol] 3.7 g/dL Low 3.9-4.9 [facility] Comment on above: Order Comment: Speci men Type: BLOOD SPECIMENOrdering Facility: [facility] Address: [address] [place] [address] Performed By: #### 2 4323-8, 26181-4 ####[facility] LABCLIA [id number] [place] [address] [place] ALP [Catalytic activity/Vol] 109 U/L Normal 38-113 [facility] Comment on above: Order Comment: Speci men Type: BLOOD SPECIMENOrdering Facility: [facility] Address: [address] [place] [address] Performed By: #### 2 4323-8, 19839-0 ####[facility] LABCLIA [id number] [place] [id number] [place] ALT [Catalytic activity/Vol] 10 U/L Normal 10-54 [facility] Comment on above: Order Comment: Speci men Type: BLOOD SPECIMENOrdering Facility: [facility] Address: [address] [place] [address] Performed By: #### 2 4323-8, 59645-9 ####[facility] LABCLIA [id number] [place] [address] [place] Anion gap [Moles/Vol] 14 mmol/L Normal 9-18 [facility] Comment on above: Order Comment: Speci men Type: BLOOD SPECIMENOrdering Facility: [facility] Address: [address] [place] [address] Performed By: #### 2 4323-8, 31140-2 ####[facility] LABCLIA [id number] [place] [address] [place] AST [Catalytic activity/Vol] 20 U/L Normal 14-40 [facility] Comment on above: Order Comment: Speci men Type: BLOOD SPECIMENOrdering Facility: [facility] Address: [address] [place] [address] Performed By: #### 2 4323-8, 95627-4 ####[facility] LABCLIA [id number] [place] [address] [place] Bilirubin [Mass/Vol] 1.1 mg/dL Normal 0.2-1.3 [facility] Comment on above: Order Comment: Speci men Type: BLOOD SPECIMENOrdering Facility: [facility] Address: [address] [place] [address] Performed By: #### 2 4323-8, 49317-7 ####[facility] LABCLIA [id number] [place] [address] [place] Calcium [Mass/Vol] 9.8 mg/dL Normal 8.5-10.2 [facility] Comment on above: Order Comment: Speci men Type: BLOOD SPECIMENOrdering Facility: [facility] Address: [address] [place] [address] Performed By: #### 2 4323-8, 46702-8 ####[facility] LABCLIA [id number] [place] [address] [place] Chloride [Moles/Vol] 95 mmol/L Low 97-105 [facility] Comment on above: Order Comment: Speci men Type: BLOOD SPECIMENOrdering Facility: [facility] Address: [address] [place] [address] Performed By: #### 2 4323-8, 59088-3 ####[facility] LABCLIA [id number] [place] [address] [place] CO2 [Moles/Vol] 25 mmol/L Normal 22-30 [facility] Comment on above: Order Comment: Speci men Type: BLOOD SPECIMENOrdering Facility: [facility] Address: [address] [place] [address] Performed By: #### 2 4323-8, 96152-6 ####[facility] LABCLIA [id number] [facility] [address] [place] Creatinine [Mass/Vol] 2.50 mg/dL High 0.73-1.22 [facility] Comment on above: Order Comment: Speci men Type: BLOOD SPECIMENOrdering Facility: [facility] Address: [address] [place] [address] Performed By: #### 2 4323-8, 15309-8 ####[facility] LABCLIA [id number] [place] [address] [place] Creatinine and Glomerular filtration rate.predicted panel (S/P/Bld) 25 mL/min/1.73m??? Low >=60 [facility] Comment on above: Order Comment: Dylan olvera Type: BLOOD SPECIMENOrdering Facility: [facility] Address: [address] [place] [address] Result Comment: Etta mated Glomerular Filtration Rate [...] actual GFR. Performed By: #### 2 4323-8, 79162-5 ####[facility] LABCLIA [id number] [place] [address] [place] Glucose [Mass/Vol] 105 mg/dL High 74-99 [facility] Comment on above: Order Comment: Dylan olvera Type: BLOOD SPECIMENOrdering Facility: [facility] Address: [address] [place] [address] Result Comment: The [place] Diabetes Association (ADA) provides guidance for cutoff [...] Standards of Medical Care in Diabetes 2016, [place] [employer]. Diabetes Care. 2016.39(Suppl 1). Performed By: #### 2 4323-8, 67881-6 ####[facility] LABCLIA [id number] [place] [address] [place] Potassium [Moles/Vol] 3.9 mmol/L Normal 3.7-5.1 [facility] Comment on above: Order Comment: Speci men Type: BLOOD SPECIMENOrdering Facility: [facility] Address: [address] [place] [address] Performed By: #### 2 4323-8, 98961-4 ####[facility] LABCLIA [id number] [place] [address] [place] Protein [Mass/Vol] 7.2 g/dL Normal 6.3-8.0 [facility] Comment on above: Order Comment: Speci men Type: BLOOD SPECIMENOrdering Facility: [facility] Address: [address] [place] [address] Performed By: #### 2 4323-8, 88273-7 ####[facility] LABCLIA [id number] [place] [address] [place] Sodium [Moles/Vol] 134 mmol/L Low 136-144 [facility] Comment on above: Order Comment: Speci men Type: BLOOD SPECIMENOrdering Facility: [facility] Address: [address] [place] [address] Performed By: #### 2 4323-8, 69858-9 ####[facility] LABIA [id number] [place] [address] [place] Urea nitrogen [Mass/Vol] 44 mg/dL High 9-24 [facility] Comment on above: Order Comment: Speci men Type: BLOOD SPECIMENOrdering Facility: [facility] Address: [address] [place] [address] Performed By: #### 2 4323-8, 55784-9 ####[facility] LABCLIA [id number] [place] [address] [place] NT PRO BNPon 01-10-2024 Natriuretic peptide.B prohormone N-Terminal [Mass/Vol] 08836 pg/mL High NINF - 450 pg/mL [facility] NT-proBNP SerPl-mCncon 01-09 Natriuretic peptide.B prohormone N-Terminal [Mass/Vol] 95418 pg/mL High <450 [facility] Comment on above: Order Comment: Speci men Type: BLOOD SPECIMENOrdering Facility: [facility] Address: [address] [place] [address] Performed By: #### 2 4323-8, 69986-7 ####[facility] LABCLIA [id number] [facility] [id number] [address] [place] No Panel Informationon 01-09 Interpretation and review of laboratory results Abnormal [facility] CNNURSEon 01-02-2024 [facility] CNPNon 01-02-2024 CNPN Normal [facility] CNNURSEon 01-01-2024 CNNURSE Normal [facility] CNNURSEon 12-30-2023 CNNURSE Normal [facility] CNOVon 12-26-2023 CNOV Normal [facility] Follow-Upon 12-25-2023 Follow-Up Normal [facility] ICD REMOTE CHECKon AV Delay Adaptive Paced Minimum (ms) 200 ms [facility] AV Delay Adaptive Sensed Minimum (ms) 170 ms [facility] Bj RA Pacing Amplitude (volts) 2.0 V [facility] Bj RA Pacing Polarity BI [facility] Bj RA Pacing Pulse Width (ms) 0.5 ms [facility] Bj RA Sensing Amplitude (mvolts) 0.25 mV [facility] Bj RA Sensing Polarity BI [facility] Bj RV Pacing Amplitude (volts) 2.0 V [facility] Bj RV Pacing Polarity BI [facility] Bj RV Pacing Pulse Width (ms) 0.5 ms [facility] Bj RV Sensing Amplitude (mvolts) 0.3 mV [facility] Bj RV Sensing Polarity BI [facility] Detection Configuration (Vent) 2 - Zone [facility] FastVT_Detection Interval 250 ms [facility] FastVT_Therapy Configuration 1 ATP(s) + 8 Shock(s) [facility] ICD FastVT DetectionStatus ENABLED [facility] ICD-AMS EPISODES 170 {beats}/min [facility] ICD-ATP Episodes (Vent) 1 [facility] ICD-ATRIALFIBRILLAT ION 9 [facility] ICD-ATRIALTACHYCARD IA 9 [facility] ICD-ATRIALTACHYCARD IA 2 [facility] ICD-ATRIALTACHYCARD IA 1 [facility] ICD-Device Mfg BSX [facility] ICD-Fast Ventricular Tachycardia 2 [facility] ICD-Fast Ventricular Tachycardia 1 [facility] ICD-Fast Ventricular Tachycardia 0 [facility] ICD-LEADIMPEDANCEAT RIAL 767 ohm [facility] ICD-Percent Pacing (Atrial) 0 % [facility] ICD-Percent Pacing (Vent) 0 % [facility] ICD-Shocks Aborted (Vent) 0 [facility] DGC-FAFQZH-QMLLNFTT D 0 [facility] ICD-SHOCKSABORTED 0 [facility] ICD-SHOCKSDELIVERED VENTRICULAR 0 [facility] ICD-Ventricular Fibrillation 0 [facility] Lead Impedance (RV) 437 ohm [facility] Lead Impedance High Voltage 51 ohm [facility] Lead1 Mfg BSX [facility] Lead2 Mfg BSX [facility] Location RV [facility] Location RA [facility] Lower Rate (bpm) 50 {beats}/min [facility] Max Sensor Rate (bpm) 130 {beats}/min [facility] MDT_PROG_TACHY_ZONE _DETECTIONS_STATUS ENABLED [facility] Model D142 INOGEN [facility] Model 0675 Elsie 4-Front [facility] Model 7741 Ingevity MRI [facility] Pacing Mode DDDR [facility] Serial Number [id number] [facility] Serial Number [id number] [facility] Serial Number [id number] [facility] Test Charge Energy 23 J [facility] Test Charge Time 10.3 s [facility] Therapy Status (Vent) Enabled [facility] Thresh RA Capture Amplitude (volts) 0.9 V [facility] Thresh RA Capture Duration (ms) 0.5 ms [facility] Thresh RV Capture Amplitude (VOLTS) 0.4 V [facility] Thresh RV Capture Duration (MS) 0.5 ms [facility] Tracking Rate (bpm) 130 {beats}/min [facility] VF Zone Detection Interval 250 ms [facility] VF Zone Therapy Configuration 1 ATP(s) + 8 Shock(s) [facility] No Panel Informationon 12-22 BLANK _ [facility] ICD-ATRIALTACHYCARD IA 0 [facility] Implant Date 03/24/2019 [facility] CNPNon 12-17-2023 CNPN Normal [facility] NT PRO BNPon 12-13-2023 Natriuretic peptide.B prohormone N-Terminal [Mass/Vol] 57623 pg/mL High <450 pg/mL [facility] CNOVon 12-12-2023 CNOV Normal [facility] Comprehensive metabolic 2000 panelon 12-12-2023 Albumin [Mass/Vol] 4.0 g/dL Normal 3.9-4.9 [facility] Comment on above: Order Comment: Speci men Type: BLOOD SPECIMENOrdering Facility: [facility] Address: [address] [place] [address] Performed By: #### 3 3762-6, 06698-5 ####[facility] LABCLIA [id number] [place] [address] [place] ALP [Catalytic activity/Vol] 118 U/L High 38-113 [facility] Comment on above: Order Comment: Speci men Type: BLOOD SPECIMENOrdering Facility: [facility] Address: [address] [place] [address] Performed By: #### 3 3762-6, 03220-5 ####[facility] LABCLIA [id number] [place] [address] [place] ALT [Catalytic activity/Vol] 14 U/L Normal 10-54 [facility] Comment on above: Order Comment: Speci men Type: BLOOD SPECIMENOrdering Facility: [facility] Address: [address] [place] [address] Performed By: #### 3 3762-6, 00775-2 ####[facility] LABCL[facility] [id number] [place] [address] [place] Anion gap [Moles/Vol] 18 mmol/L Normal 9-18 [facility] Comment on above: Order Comment: Speci men Type: BLOOD SPECIMENOrdering Facility: [facility] Address: [address] [place] [address] Performed By: #### 3 376-6, ####[facility] LABCLIA [id number] [place] [id number] [place] AST [Catalytic activity/Vol] 26 U/L Normal 14-40 [facility] Comment on above: Order Comment: Speci men Type: BLOOD SPECIMENOrdering Facility: [facility] Address: [address] [place] [address] Performed By: #### 3 376-6, ####[facility] LABIA [id number] [place] [address] [place] Bilirubin [Mass/Vol] 0.7 mg/dL Normal 0.2-1.3 [facility] Comment on above: Order Comment: Speci men Type: BLOOD SPECIMENOrdering Facility: [facility] Address: [address] [place] [address] Performed By: #### 3 3766, ####[facility] LABIA [id number] [place] [address] [place] Calcium [Mass/Vol] 10.1 mg/dL Normal 8.5-10.2 [facility] Comment on above: Order Comment: Speci men Type: BLOOD SPECIMENOrdering Facility: [facility] Address: [address] [place] [address] Performed By: #### 3 376-6, ####[facility] LABCLIA [id number] [place] [id number] [place] Chloride [Moles/Vol] 97 mmol/L Normal 97-105 [facility] Comment on above: Order Comment: Speci men Type: BLOOD SPECIMENOrdering Facility: [facility] Address: [address] [place] [address] Performed By: #### 3 3762-6, ####[facility] LABIA [id number] [place] [id number] [place] CO2 [Moles/Vol] 25 mmol/L Normal 22-30 [facility] Comment on above: Order Comment: Speci men Type: BLOOD SPECIMENOrdering Facility: [facility] Address: [address] [place] [address] Performed By: #### 3 3762-6, ####[facility] LABCLIA [id number] [place] [address] [place] Creatinine [Mass/Vol] 2.32 mg/dL High 0.73-1.22 [facility] Comment on above: Order Comment: Speci men Type: BLOOD SPECIMENOrdering Facility: [facility] Address: [address] [place] [address] Performed By: #### 3 3762-6, ####[facility] LABCLIA [id number] [address] [place] [facility] Creatinine and Glomerular filtration rate.predicted panel (S/P/Bld) 28 mL/min/1.73m??? Low >=60 [facility] Comment on above: Order Comment: Speci men Type: BLOOD SPECIMENOrdering Facility: [facility] Address: [address] [place] [address] Result Comment: Etta mated Glomerular Filtration Rate [...] actual GFR. Performed By: #### 3 3762-6, 51235-8 ####[facility] LABCLIA [id number] [place] [address] [place] Glucose [Mass/Vol] 93 mg/dL Normal 74-99 [facility] Comment on above: Order Comment: Speci men Type: BLOOD SPECIMENOrdering Facility: [facility] Address: [address] [place] [address] Result Comment: The [place] [employer] (ADA) provides guidance for cutoff [...] Standards of Medical Care in Diabetes 2016, [place] [employer]. Diabetes Care. 2016.39(Suppl 1). Performed By: #### 3 3762-6, 01809-9 ####[facility] LABIA [id number] [place] [address] [place] Potassium [Moles/Vol] 4.1 mmol/L Normal 3.7-5.1 [facility] Comment on above: Order Comment: Speci men Type: BLOOD SPECIMENOrdering Facility: [facility] Address: [address] [place] [address] Performed By: #### 3 3762-6, 34432-1 ####[facility] LABIA [id number] [place] [address] [place] Protein [Mass/Vol] 7.4 g/dL Normal 6.3-8.0 [facility] Comment on above: Order Comment: Speci men Type: BLOOD SPECIMENOrdering Facility: [facility] Address: [address] [place] [address] Performed By: #### 3 3762-6, 74270-3 ####[facility] LABIA [id number] [place] [address] [place] Sodium [Moles/Vol] 140 mmol/L Normal 136-144 [facility] Comment on above: Order Comment: Speci men Type: BLOOD SPECIMENOrdering Facility: [facility] Address: [address] [place] [address] Performed By: #### 3 3762-6, 58400-3 ####[facility] LABCLIA [id number] [place] [address] [place] Urea nitrogen [Mass/Vol] 40 mg/dL High 9-24 [facility] Comment on above: Order Comment: Speci men Type: BLOOD SPECIMENOrdering Facility: [facility] Address: [address] [place] [address] Performed By: #### 3 3762-6, 45024-3 ####[facility] LABCLIA [id number] [place] [address] [place] ECG COMPLETEon 12-12-2023 ECG COMPLETE Normal [facility] NT-proBNP SerPl-mCncon 12-11 Natriuretic peptide.B prohormone N-Terminal [Mass/Vol] 28876 pg/mL High <450 [facility] Comment on above: Order Comment: Speci men Type: BLOOD SPECIMENOrdering Facility: [facility] Address: [address] [place] [address] Performed By: #### 3 3762-6, 34990-2 ####[facility] LABIA [id number] [place] [id number] [place] ICD REMOTE CHECKon 4 AV Delay Adaptive Paced Minimum (ms) 200 ms [facility] AV Delay Adaptive Sensed Minimum (ms) 170 ms [facility] Bj RA Pacing Amplitude (volts) 2.0 V [facility] Bj RA Pacing Polarity BI [facility] Bj RA Pacing Pulse Width (ms) 0.5 ms [facility] Bj RA Sensing Amplitude (mvolts) 0.25 mV [facility] Bj RA Sensing Polarity BI [facility] Bj RV Pacing Amplitude (volts) 2.0 V [facility] Bj RV Pacing Polarity BI [facility] Bj RV Pacing Pulse Width (ms) 0.5 ms [facility] Bj RV Sensing Amplitude (mvolts) 0.3 mV [facility] Bj RV Sensing Polarity BI [facility] Detection Configuration (Vent) 2 - Zone [facility] FastVT_Detection Interval 250 ms [facility] FastVT_Therapy Configuration 1 ATP(s) + 8 Shock(s) [facility] ICD FastVT DetectionStatus ENABLED [facility] ICD-AMS EPISODES 170 {beats}/min [facility] ICD-ATP Episodes (Vent) 0 [facility] ICD-ATRIALFIBRILLAT ION 7 [facility] ICD-ATRIALTACHYCARD IA 7 [facility] ICD-ATRIALTACHYCARD IA 2 [facility] ICD-Device Mfg BSX [facility] ICD-Fast Ventricular Tachycardia 2 [facility] ICD-LEADIMPEDANCEAT RIAL 827 ohm [facility] ICD-Percent Pacing (Atrial) 0 % [facility] ICD-Percent Pacing (Vent) 0 % [facility] ICD-Shocks Aborted (Vent) 0 [facility] [id number] D 0 [facility] ICD-SHOCKSABORTED 0 [facility] ICD-SHOCKSDELIVERED VENTRICULAR 0 [facility] ICD-Ventricular Fibrillation 0 [facility] Lead Impedance (RV) 468 ohm [facility] Lead Impedance High Voltage 60 ohm [facility] Lead1 Mfg BSX [facility] Lead2 Mfg BSX [facility] Location RV [facility] Location RA [facility] Lower Rate (bpm) 50 {beats}/min [facility] Max Sensor Rate (bpm) 130 {beats}/min [facility] MDT_PROG_TACHY_ZONE _DETECTIONS_STATUS ENABLED [facility] Model D142 INOGEN [facility] Model 0675 Elsie 4-Front [facility] Model 7741 Ingevity MRI [facility] Pacing Mode DDDR [facility] Serial Number [id number] [facility] Serial Number [id number] [facility] Serial Number [id number] [facility] Test Charge Energy 23 J [facility] Test Charge Time 10.3 s [facility] Therapy Status (Vent) Enabled [facility] Thresh RA Capture Amplitude (volts) 0.9 V [facility] Thresh RA Capture Duration (ms) 0.5 ms [facility] Thresh RV Capture Amplitude (VOLTS) 0.4 V [facility] Thresh RV Capture Duration (MS) 0.5 ms [facility] Tracking Rate (bpm) 130 {beats}/min [facility] VF Zone Detection Interval 250 ms [facility] VF Zone Therapy Configuration 1 ATP(s) + 8 Shock(s) [facility] No Panel Informationon 03-20 -2024 BLANK _ [facility] ICD-ATRIALTACHYCARD IA 0 [facility] ICD-Fast Ventricular Tachycardia 0 [facility] Implant Date 03/24/2019 [facility] 36on 11-26-2023 36 DC to home on 024 Spoke to pt on 11/26/23 Med rec completed with pt Pt aware of follow up appt in [place] on 12/02/23, pt has transportation Normal [facility] CNPNon 11-26-2023 CNPN Normal [facility] BASIC METABOLIC PANELon 11-14 Anion gap [Moles/Vol] 15 mmol/L Normal 7-20 [facility] Comment on above: Performed By: #### L [id number] ####[facility] (AKER)[address] [place] [address] Calcium [Mass/Vol] 9.7 mg/dL Normal 8.6-10.3 [facility] Comment on above: Performed By: #### L [id number] ####[facility] ([facility]ER)[address] [place] [address] Chloride [Moles/Vol] 98 mmol/L Normal 98-107 [facility] Comment on above: Performed By: #### L [id number] ####[facility] ([facility]ER)[address] [place] [address] CO2 [Moles/Vol] 26 mmol/L Normal 21-31 [facility] Comment on above: Performed By: #### L [id number] ####[facility] (BEAKER)[address] [place] [address] Creatinine [Mass/Vol] 2.09 mg/dL High 0.70-1.30 [facility] Comment on above: Performed By: #### L [id number] ####[facility] ([facility])[address] [place] [address] GLOMERULAR FILTRATION RATE ML/MIN/1.73 SQ M.PREDICTED 31.2 mL/min/1.73m*2 Low >60.[address] [facility] Comment on above: Result Comment: [facility]???s estimated glomerular filtration rate (eGFR) will [...] of individuals. Performed By: #### L [id number] ####[facility] ([facility])[address] [place] [address] Glucose [Mass/Vol] 86 mg/dL Normal 70-100 [facility] Comment on above: Performed By: #### L [id number] ####[facility] ([facility])[address] [place] [address] Potassium [Moles/Vol] 3.7 mmol/L Normal 3.5-5.1 [facility] Comment on above: Performed By: #### L [id number] ####[facility] ([facility])[address] [place] [address] Sodium [Moles/Vol] 135 mmol/L Low 136-145 [facility] Comment on above: Performed By: #### L [id number] ####[facility] ([facility]ER)[address] [place] [address] Urea nitrogen [Mass/Vol] 53 mg/dL High 7-25 [facility] Comment on above: Performed By: #### L [id number] ####[facility] ([facility] [place] [address] UREA NITROGEN/CREATININE (MASS RATIO) IN SER/PLAS 25.4 Normal [facility] Comment on above: Performed By: #### L [id number] ####[facility] (BE[facility]ER)[address] [place] [address] CBC WITH AUTO DIFFERENTIALon 11-25-2023 Basophils (Bld) [#/Vol] 0.05 10*3/uL Normal 0.00-0.20 [facility] Comment on above: Performed By: #### L [id number] ####[facility] (BE[facility]ER)[address] [place] [address] Basophils/100 WBC (Bld) 0.6 % Normal 0.0-1.0 [facility] Comment on above: Performed By: #### L [id number] ####[facility] ([facility]ER)[address] [place] [address] Eosinophils (Bld) [#/Vol] 0.24 10*3/uL Normal 0.00-0.50 [facility] Comment on above: Performed By: #### L [id number] ####[facility] ([facility]ER)[address] [place] [address] Eosinophils/100 WBC (Bld) 2.8 % Normal 0.0-6.0 [facility] Comment on above: Performed By: #### L [id number] ####[facility] ([facility] [place] [address] Erythrocyte distribution width (RBC) [Ratio] 14.5 % Normal 11.5-15.0 [facility] Comment on above: Performed By: #### L [id number] ####[facility] (BE[facility]ER)[address] [place] [address] ERYTHROCYTE MEAN CORPUSCULAR HEMOGLOBIN CONCENTRATION (G/DL) BY AUTOMATED 32.1 g/dL Normal 32.0-35.[address] [facility] Comment on above: Performed By: #### L [id number] ####[facility] (BEAKER)[address] [place] [address] Hematocrit (Bld) [Volume fraction] 46.8 % Normal 39.0-55.0 [facility] Comment on above: Performed By: #### L [id number] ####[facility] (BE[facility]ER)[address] [place] [address] Hemoglobin (Bld) [Mass/Vol] 15.0 g/dL Normal 13.0-17.0 [facility] Comment on above: Performed By: #### L [id number] ####[facility] (BE[facility]ER)[address] [place] [address] Immature granulocytes (Bld) [#/Vol] 0.04 10*3/uL Normal 0.00-0.20 [facility] Comment on above: Performed By: #### L [id number] ####[facility] (BEAKER)[address] [place] [address] Immature granulocytes/100 WBC (Bld) 0.5 % Normal 0.0-1.0 [facility] Comment on above: Performed By: #### L [id number] ####[facility] (BE[facility]ER)[address] [place] [address] Lymphocytes (Bld) [#/Vol] 1.49 10*3/uL Normal 1.20-4.00 [facility] Comment on above: Performed By: #### L [id number] ####[facility] (BE[facility]ER)[address] [place] [address] Lymphocytes/100 WBC (Bld) 17.2 % Low 20.0-45.0 [facility] Comment on above: Performed By: #### L [id number] ####[facility] (BE[facility]ER)[address] [place] [address] MCH (RBC) [Entitic mass] 28.5 pg Normal 27.0-33.0 [facility] Comment on above: Performed By: #### L [id number] ####[facility] (BE[facility]ER)[address] [place] [address] MCV (RBC) [Entitic vol] 88.8 fL Normal 82.0-98.0 [facility] Comment on above: Performed By: #### L [id number] ####[facility] (BE[facility]ER)[address] [place] [address] Monocytes (Bld) [#/Vol] 0.81 10*3/uL Normal 0.10-1.00 [facility] Comment on above: Performed By: #### L [id number] ####[facility] (BE[facility]ER)[address] [place] [address] Monocytes/100 WBC (Bld) 9.4 % Normal 5.0-12.0 [facility] Comment on above: Performed By: #### L [id number] ####[facility] ([facility]ER)[address] [place] [address] Neutrophils (Bld) [#/Vol] 6.03 10*3/uL Normal 1.60-7.60 [facility] Comment on above: Performed By: #### L [id number] ####[facility] ([facility] [place] [address] Neutrophils/100 WBC (Bld) 69.5 % Normal 40.0-72.0 [facility] Comment on above: Performed By: #### L [id number] ####[facility] ([facility] [place] [address] NRBC (PER 100 WBCS) BY AUTOMATED COUNT 0.0 % Normal 0 [facility] Comment on above: Performed By: #### L [id number] ####[facility] ([facility] [place] [address] PLATELETS (10*3/UL) IN BLOOD AUTOMATED COUNT 204 10*3/uL Normal 150-400 [facility] Comment on above: Performed By: #### L [id number] ####[facility] (BEAKER)[address] [place] [address] RBC (Bld) [#/Vol] 5.27 10*6/uL Normal 4.20-5.70 [facility] Comment on above: Performed By: #### L [id number] ####[facility] (BEAKER)[address] [place] [address] WBC (Bld) [#/Vol] 8.66 10*3/uL Normal 4.00-10.60 [facility] Comment on above: Performed By: #### L [id number] ####[facility] (BEAKER)[address] [place] [address] DSon 03-11-2024 DS Normal [facility] 30on 11-24-2023 30 Normal [facility] CBC WITH AUTO DIFFERENTIALon 11-24-2023 Basophils (Bld) [#/Vol] 0.05 10*3/uL Normal 0.00-0.20 [facility] Comment on above: Performed By: #### L [id number] ####[facility] ([facility] [place] [address] Basophils/100 WBC (Bld) 0.6 % Normal 0.0-1.0 [facility] Comment on above: Performed By: #### L [id number] ####[facility] ([facility] [place] [address] Eosinophils (Bld) [#/Vol] 0.22 10*3/uL Normal 0.00-0.50 [facility] Comment on above: Performed By: #### L [id number] ####[facility] ([facility] [place] [address] Eosinophils/100 WBC (Bld) 2.5 % Normal 0.0-6.0 [facility] Comment on above: Performed By: #### L [id number] ####[facility] [place] [address] Erythrocyte distribution width (RBC) [Ratio] 14.6 % Normal 11.5-15.0 [facility] Comment on above: Performed By: #### L [id number] ####[facility] (BEAKER)[address] [place] [address] ERYTHROCYTE MEAN CORPUSCULAR HEMOGLOBIN CONCENTRATION (G/DL) BY AUTOMATED 32.6 g/dL Normal 32.0-35.[address] [facility] Comment on above: Performed By: #### L [id number] ####[facility] (BEAKER)[address] [place] [address] Hematocrit (Bld) [Volume fraction] 44.8 % Normal 39.0-55.0 [facility] Comment on above: Performed By: #### L [id number] ####[facility] (BEAKER)[address] [place] [address] Hemoglobin (Bld) [Mass/Vol] 14.6 g/dL Normal 13.0-17.0 [facility] Comment on above: Performed By: #### L [id number] ####[facility] (BE[facility]ER)[address] [place] [address] Immature granulocytes (Bld) [#/Vol] 0.04 10*3/uL Normal 0.00-0.20 [facility] Comment on above: Performed By: #### L [id number] ####[facility] (BE[facility]ER)[address] [place] [address] Immature granulocytes/100 WBC (Bld) 0.5 % Normal 0.0-1.0 [facility] Comment on above: Performed By: #### L [id number] ####[facility] (BE[facility]ER)[address] [place] [address] Lymphocytes (Bld) [#/Vol] 1.07 10*3/uL Low 1.20-4.00 [facility] Comment on above: Performed By: #### L [id number] ####[facility] (BE[facility]ER)[address] [place] [address] Lymphocytes/100 WBC (Bld) 12.3 % Low 20.0-45.0 [facility] Comment on above: Performed By: #### L [id number] ####[facility] (BEAKER)[address] [place] [address] MCH (RBC) [Entitic mass] 28.7 pg Normal 27.0-33.0 [facility] Comment on above: Performed By: #### L [id number] ####[facility] (BE[facility]ER)[address] [place] [address] MCV (RBC) [Entitic vol] 88.2 fL Normal 82.0-98.0 [facility] Comment on above: Performed By: #### L [id number] ####[facility] (BE[facility]ER)[address] [place] [address] Monocytes (Bld) [#/Vol] 0.89 10*3/uL Normal 0.10-1.00 [facility] Comment on above: Performed By: #### L [id number] ####[facility] ([facility]ER)[address] [place] [address] Monocytes/100 WBC (Bld) 10.2 % Normal 5.0-12.0 [facility] Comment on above: Performed By: #### L [id number] ####[facility] ([facility]ER)[address] [place] [address] Neutrophils (Bld) [#/Vol] 6.45 10*3/uL Normal 1.60-7.60 [facility] Comment on above: Performed By: #### L [id number] ####[facility] ([facility]ER)[address] [place] [address] Neutrophils/100 WBC (Bld) 73.9 % High 40.0-72.0 [facility] Comment on above: Performed By: #### L [id number] ####[facility] ([facility]ER)[address] [place] [address] NRBC (PER 100 WBCS) BY AUTOMATED COUNT 0.0 % Normal 0 [facility] Comment on above: Performed By: #### L [id number] ####[facility] (BE[facility]ER)[address] [place] [address] PLATELETS (10*3/UL) IN BLOOD AUTOMATED COUNT 209 10*3/uL Normal 150-400 [facility] Comment on above: Performed By: #### L [id number] ####[facility] (BE[facility]ER)[address] [place] [address] RBC (Bld) [#/Vol] 5.08 10*6/uL Normal 4.20-5.70 [facility] Comment on above: Performed By: #### L [id number] ####[facility] (BEAKER)[address] [place] [address] WBC (Bld) [#/Vol] 8.72 10*3/uL Normal 4.00-10.60 [facility] Comment on above: Performed By: #### L [id number] ####[facility] ([facility])[address] [place] [address] COMPREHENSIVE METABOLIC PANE [place] 11-24-2023 Albumin [Mass/Vol] 3.8 g/dL Normal 3.5-5.7 [facility] Comment on above: Performed By: #### L [id number] ####[facility] ([facility])[address] [place] [address] ALP [Catalytic activity/Vol] 92 U/L Normal 34-104 [facility] Comment on above: Performed By: #### L [id number] ####[facility] ([facility])[address] [place] [address] ALT [Catalytic activity/Vol] 12 U/L Normal 7-52 [facility] Comment on above: Performed By: #### L [id number] ####[facility] ([facility])[address] [place] [address] Anion gap [Moles/Vol] 14 mmol/L Normal 7-20 [facility] Comment on above: Performed By: #### L [id number] ####[facility] ([facility])[address] [place] [address] AST [Catalytic activity/Vol] 22 U/L Normal 13-39 [facility] Comment on above: Performed By: #### L [id number] ####[facility] ([facility])[address] [place] [address] Bilirubin [Mass/Vol] 1.0 mg/dL Normal 0.3-1.0 [facility] Comment on above: Performed By: #### L [id number] ####[facility] ([facility])[address] [place] [address] Calcium [Mass/Vol] 9.8 mg/dL Normal 8.6-10.3 [facility] Comment on above: Performed By: #### L [id number] ####[facility] ([facility]ER)[address] [place] [address] Chloride [Moles/Vol] 100 mmol/L Normal 98-107 [facility] Comment on above: Performed By: #### L [id number] ####[facility] ([facility])[address] [place] [address] CO2 [Moles/Vol] 24 mmol/L Normal 21-31 [facility] Comment on above: Performed By: #### L [id number] ####[facility] ([facility] [place] [address] Creatinine [Mass/Vol] 2.11 mg/dL High 0.70-1.30 [facility] Comment on above: Performed By: #### L [id number] ####[facility] ([facility])[address] [place] [address] GLOMERULAR FILTRATION RATE ML/MIN/1.73 SQ M.PREDICTED 30.9 mL/min/1.73m*2 Low >60.[address] [facility] Comment on above: Result Comment: [facility]???s estimated glomerular filtration rate (eGFR) will [...] of individuals. Performed By: #### L [id number] ####[facility] ([facility] [place] [address] Glucose [Mass/Vol] 116 mg/dL High 70-100 [facility] Comment on above: Performed By: #### L [id number] ####[facility] ([facility] [place] [address] Potassium [Moles/Vol] 3.4 mmol/L Low 3.5-5.1 [facility] Comment on above: Performed By: #### L [id number] ####[facility] ([facility])[address] [place] [address] Protein [Mass/Vol] 7.3 g/dL Normal 6.0-8.3 [facility] Comment on above: Performed By: #### L [id number] ####[facility] ([facility])[address] [place] [address] Sodium [Moles/Vol] 135 mmol/L Low 136-145 [facility] Comment on above: Performed By: #### L [id number] ####[facility] ([facility])[address] [place] [address] Urea nitrogen [Mass/Vol] 55 mg/dL High - [facility] Comment on above: Performed By: #### L [id number] ####[facility] ([facility])[address] [place] [address] UREA NITROGEN/CREATININE (MASS RATIO) IN SER/PLAS 26.1 Normal [facility] Comment on above: Performed By: #### L [id number] ####[facility] ([facility])[address] [place] [address] MAGNESIUMon 11-24-2023 Magnesium [Mass/Vol] 2.4 mg/dL Normal 1.9-2.7 [facility] Comment on above: Performed By: #### L [id number] ####[facility] ([facility])[address] [place] [address] 30on 11-23-2023 30 Normal [facility] 30 Normal [facility] BASIC METABOLIC PANELon - Anion gap [Moles/Vol] 15 mmol/L Normal 7-20 [facility] Comment on above: Performed By: #### L [id number] ####[facility] ([facility] [place] [address] Calcium [Mass/Vol] 10.1 mg/dL Normal 8.6-10.3 [facility] Comment on above: Performed By: #### L [id number] ####[facility] ([facility])[address] [place] [address] Chloride [Moles/Vol] 99 mmol/L Normal 98-107 [facility] Comment on above: Performed By: #### L [id number] ####[facility] ([facility])[address] [place] [address] CO2 [Moles/Vol] 25 mmol/L Normal 21-31 [facility] Comment on above: Performed By: #### L [id number] ####[facility] ([facility] [place] [address] Creatinine [Mass/Vol] 2.02 mg/dL High 0.70-1.30 [facility] Comment on above: Performed By: #### L [id number] ####[facility] ([facility] [place] [address] GLOMERULAR FILTRATION RATE ML/MIN/1.73 SQ M.PREDICTED 32.5 mL/min/1.73m*2 Low >60.[address] [facility] Comment on above: Result Comment: [facility]???s estimated glomerular filtration rate (eGFR) will [...] of individuals. Performed By: #### L [id number] ####[facility] ([facility])[address] [place] [address] Glucose [Mass/Vol] 103 mg/dL High 70-100 [facility] Comment on above: Performed By: #### L [id number] ####[facility] ([facility])[address] [place] [address] Potassium [Moles/Vol] 3.5 mmol/L Normal 3.5-5.1 [facility] Comment on above: Performed By: #### L [id number] ####[facility] ([facility])[address] [place] [address] Sodium [Moles/Vol] 135 mmol/L Low 136-145 [facility] Comment on above: Performed By: #### L [id number] ####[facility] ([facility])[address] [place] [address] Urea nitrogen [Mass/Vol] 50 mg/dL High 7-25 [facility] Comment on above: Performed By: #### L [id number] ####[facility] ([facility])[address] [place] [address] UREA NITROGEN/CREATININE (MASS RATIO) IN SER/PLAS 24.8 Normal [facility] Comment on above: Performed By: #### L [id number] ####[facility] ([facility])[address] [place] [address] CBC WITH AUTO DIFFERENTIALon 11-23-2023 Basophils (Bld) [#/Vol] 0.04 10*3/uL Normal 0.00-0.20 [facility] Comment on above: Performed By: #### L [id number] ####[facility] ([facility])[address] [place] [address] Basophils/100 WBC (Bld) 0.4 % Normal 0.0-1.0 [facility] Comment on above: Performed By: #### L [id number] ####[facility] ([facility] [place] [address] Eosinophils (Bld) [#/Vol] 0.13 10*3/uL Normal 0.00-0.50 [facility] Comment on above: Performed By: #### L [id number] ####[facility] ([facility])[address] [place] [address] Eosinophils/100 WBC (Bld) 1.4 % Normal 0.0-6.0 [facility] Comment on above: Performed By: #### L [id number] ####[facility] ([facility])[address] [place] [address] Erythrocyte distribution width (RBC) [Ratio] 14.9 % Normal 11.5-15.0 [facility] Comment on above: Performed By: #### L [id number] ####[facility] ([facility]ER)[address] [place] [address] ERYTHROCYTE MEAN CORPUSCULAR HEMOGLOBIN CONCENTRATION (G/DL) BY AUTOMATED 31.8 g/dL Low 32.0-35.[address] [facility] Comment on above: Performed By: #### L [id number] ####[facility] ([facility])[address] [place], [place] [address] Hematocrit (Bld) [Volume fraction] 44.6 % Normal 39.0-55.0 [facility] Comment on above: Performed By: #### L [id number] ####[facility] ([facility] [place] [address] Hemoglobin (Bld) [Mass/Vol] 14.2 g/dL Normal 13.0-17.0 [facility] Comment on above: Performed By: #### L [id number] ####[facility] ([facility])[address] [place] [address] Immature granulocytes (Bld) [#/Vol] 0.04 10*3/uL Normal 0.00-0.20 [facility] Comment on above: Performed By: #### L [id number] ####[facility] ([facility] [place] [address] Immature granulocytes/100 WBC (Bld) 0.4 % Normal 0.0-1.0 [facility] Comment on above: Performed By: #### L [id number] ####[facility] ([facility])[address] [place] [address] Lymphocytes (Bld) [#/Vol] 1.04 10*3/uL Low 1.20-4.00 [facility] Comment on above: Performed By: #### L [id number] ####[facility] ([facility])[address] [place] [address] Lymphocytes/100 WBC (Bld) 11.3 % Low 20.0-45.0 [facility] Comment on above: Performed By: #### L [id number] ####[facility] ([facility] [place] [address] MCH (RBC) [Entitic mass] 28.5 pg Normal 27.0-33.0 [facility] Comment on above: Performed By: #### L [id number] ####[facility] ([facility] [place] [address] MCV (RBC) [Entitic vol] 89.6 fL Normal 82.0-98.0 [facility] Comment on above: Performed By: #### L [id number] ####[facility] ([facility] [place] [address] Monocytes (Bld) [#/Vol] 0.83 10*3/uL Normal 0.10-1.00 [facility] Comment on above: Performed By: #### L [id number] ####[facility] ([facility])[address] [place] [address] Monocytes/100 WBC (Bld) 9.0 % Normal 5.0-12.0 [facility] Comment on above: Performed By: #### L [id number] ####[facility] ([facility])[address] [place] [address] Neutrophils (Bld) [#/Vol] 7.12 10*3/uL Normal 1.60-7.60 [facility] Comment on above: Performed By: #### L [id number] ####[facility] ([facility])[address] [place] [address] Neutrophils/100 WBC (Bld) 77.5 % High 40.0-72.0 [facility] Comment on above: Performed By: #### L [id number] ####[facility] ([facility])[address] [place] [address] NRBC (PER 100 WBCS) BY AUTOMATED COUNT 0.0 % Normal 0 [facility] Comment on above: Performed By: #### L [id number] ####[facility] ([facility])[address] [place] [address] PLATELETS (10*3/UL) IN BLOOD AUTOMATED COUNT 212 10*3/uL Normal 150-400 [facility] Comment on above: Performed By: #### L [id number] ####[facility] ([facility])[address] [place] [address] RBC (Bld) [#/Vol] 4.98 10*6/uL Normal 4.20-5.70 [facility] Comment on above: Performed By: #### L [id number] ####[facility] ([facility])[address] [place] [address] WBC (Bld) [#/Vol] 9.20 10*3/uL Normal 4.00-10.60 [facility] Comment on above: Performed By: #### L [id number] ####[facility] ([facility])[address] [place] [address] 30on 11-22-2023 30 Normal [facility] 30 Normal [facility] 30 Normal [facility] BASIC METABOLIC PANELon -0 Anion gap [Moles/Vol] 15 mmol/L Normal 7-20 [facility] Comment on above: Performed By: #### L [id number] ####[facility] ([facility])[address] [place] [address] Calcium [Mass/Vol] 9.6 mg/dL Normal 8.6-10.3 [facility] Comment on above: Performed By: #### L [id number] ####[facility] ([facility] [place] [address] Chloride [Moles/Vol] 100 mmol/L Normal 98-107 [facility] Comment on above: Performed By: #### L [id number] ####[facility] ([facility] [place] [address] CO2 [Moles/Vol] 26 mmol/L Normal 21-31 [facility] Comment on above: Performed By: #### L [id number] ####[facility] ([facility])[address] [place] [address] Creatinine [Mass/Vol] 2.19 mg/dL High 0.70-1.30 [facility] Comment on above: Performed By: #### L [id number] ####[facility] ([facility])[address] [place] [address] GLOMERULAR FILTRATION RATE ML/MIN/1.73 SQ M.PREDICTED 29.5 mL/min/1.73m*2 Low >60.[address] [facility] Comment on above: Result Comment: [facility]???s estimated glomerular filtration rate (eGFR) will [...] of individuals. Performed By: #### L [id number] ####[facility] ([facility])[address] [place] [address] Glucose [Mass/Vol] 110 mg/dL High 70-100 [facility] Comment on above: Performed By: #### L [id number] ####[facility] ([facility])[address] [place] [address] Potassium [Moles/Vol] 3.4 mmol/L Low 3.5-5.1 [facility] Comment on above: Performed By: #### L [id number] ####[facility] ([facility])[address] [place] [address] Sodium [Moles/Vol] 138 mmol/L Normal 136-145 [facility] Comment on above: Performed By: #### L [id number] ####[facility] ([facility])[address] [place] [address] Urea nitrogen [Mass/Vol] 52 mg/dL High 7-25 [facility] Comment on above: Performed By: #### L [id number] ####[facility] ([facility])[address] [place] [address] UREA NITROGEN/CREATININE (MASS RATIO) IN SER/PLAS 23.7 Normal [facility] Comment on above: Performed By: #### L [id number] ####[facility] ([facility] [place] [address] CBC WITH AUTO DIFFERENTIALon 11-22-2023 Basophils (Bld) [#/Vol] 0.04 10*3/uL Normal 0.00-0.20 [facility] Comment on above: Performed By: #### L [id number] ####[facility] ([facility])[address] [place] [address] Basophils/100 WBC (Bld) 0.3 % Normal 0.0-1.0 [facility] Comment on above: Performed By: #### L [id number] ####[facility] ([facility] [place] [address] Eosinophils (Bld) [#/Vol] 0.07 10*3/uL Normal 0.00-0.50 [facility] Comment on above: Performed By: #### L [id number] ####[facility] ([facility])[address] [place] [address] Eosinophils/100 WBC (Bld) 0.6 % Normal 0.0-6.0 [facility] Comment on above: Performed By: #### L [id number] ####[facility] ([facility])[address] [place] [address] Erythrocyte distribution width (RBC) [Ratio] 15.2 % High 11.5-15.0 [facility] Comment on above: Performed By: #### L [id number] ####[facility] ([facility])[address] [place] [address] ERYTHROCYTE MEAN CORPUSCULAR HEMOGLOBIN CONCENTRATION (G/DL) BY AUTOMATED 32.5 g/dL Normal 32.0-35.[address] [facility] Comment on above: Performed By: #### L [id number] ####[facility] ([facility])[address] [place] [address] Hematocrit (Bld) [Volume fraction] 41.2 % Normal 39.0-55.0 [facility] Comment on above: Performed By: #### L [id number] ####[facility] ([facility])[address] [place] [address] Hemoglobin (Bld) [Mass/Vol] 13.4 g/dL Normal 13.0-17.0 [facility] Comment on above: Performed By: #### L [id number] ####[facility] ([facility])[address] [place] [address] Immature granulocytes (Bld) [#/Vol] 0.05 10*3/uL Normal 0.00-0.20 [facility] Comment on above: Performed By: #### L [id number] ####[facility] ([facility])[address] [place] [address] Immature granulocytes/100 WBC (Bld) 0.4 % Normal 0.0-1.0 [facility] Comment on above: Performed By: #### L [id number] ####[facility] ([facility])[address] [place] [address] Lymphocytes (Bld) [#/Vol] 1.07 10*3/uL Low 1.20-4.00 [facility] Comment on above: Performed By: #### L [id number] ####[facility] ([facility])[address] [place] [address] Lymphocytes/100 WBC (Bld) 8.7 % Low 20.0-45.0 [facility] Comment on above: Performed By: #### L [id number] ####[facility] ([facility])[address] [place] [address] MCH (RBC) [Entitic mass] 28.7 pg Normal 27.0-33.0 [facility] Comment on above: Performed By: #### L [id number] ####[facility] ([facility] [place] [address] MCV (RBC) [Entitic vol] 88.2 fL Normal 82.0-98.0 [facility] Comment on above: Performed By: #### L [id number] ####[facility] ([facility])[address] [place] [address] Monocytes (Bld) [#/Vol] 1.09 10*3/uL High 0.10-1.00 [facility] Comment on above: Performed By: #### L [id number] ####[facility] ([facility])[address] [place] [address] Monocytes/100 WBC (Bld) 8.9 % Normal 5.0-12.0 [facility] Comment on above: Performed By: #### L [id number] ####[facility] ([facility])[address] [place] [address] Neutrophils (Bld) [#/Vol] 9.95 10*3/uL High 1.60-7.60 [facility] Comment on above: Performed By: #### L [id number] ####[facility] ([facility])[address] [place] [address] Neutrophils/100 WBC (Bld) 81.1 % High 40.0-72.0 [facility] Comment on above: Performed By: #### L [id number] ####[facility] ([facility])[address] [place] [address] NRBC (PER 100 WBCS) BY AUTOMATED COUNT 0.0 % Normal 0 [facility] Comment on above: Performed By: #### L [id number] ####[facility] ([facility])[address] [place] [address] PLATELETS (10*3/UL) IN BLOOD AUTOMATED COUNT 196 10*3/uL Normal 150-400 [facility] Comment on above: Performed By: #### L [id number] ####[facility] ([facility])[address] [place] [address] RBC (Bld) [#/Vol] 4.67 10*6/uL Normal 4.20-5.70 [facility] Comment on above: Performed By: #### L [id number] ####[facility] ([facility])[address] [place] [address] WBC (Bld) [#/Vol] 12.27 10*3/uL High 4.00-10.60 [facility] Comment on above: Performed By: #### L [id number] ####[facility] ([facility] [place] [address] 30on 11-20-2023 30 The patient is Moder ately Stable - Low risk of patient condition declining or worsening The patient's goals for the shift include comfort The clinical goals for the shift include stable vitals Normal [facility] 30 Normal [facility] 30 Normal [facility] BASIC METABOLIC PANELon 03-0 Anion gap [Moles/Vol] 15 mmol/L Normal 7-20 [facility] Comment on above: Performed By: #### L [id number] ####[facility] ([facility])[address] [place] [address] Calcium [Mass/Vol] 9.7 mg/dL Normal 8.6-10.3 [facility] Comment on above: Performed By: #### L [id number] ####[facility] ([facility])[address] [place] [address] Chloride [Moles/Vol] 100 mmol/L Normal 98-107 [facility] Comment on above: Performed By: #### L [id number] ####[facility] ([facility])[address] [place] [address] CO2 [Moles/Vol] 25 mmol/L Normal 21-31 [facility] Comment on above: Performed By: #### L [id number] ####[facility] ([facility])[address] [place] [address] Creatinine [Mass/Vol] 2.27 mg/dL High 0.70-1.30 [facility] Comment on above: Performed By: #### L [id number] ####[facility] ([facility])[address] [place] [address] GLOMERULAR FILTRATION RATE ML/MIN/1.73 SQ M.PREDICTED 28.3 mL/min/1.73m*2 Low >60.[address] [facility] Comment on above: Result Comment: [facility]???s estimated glomerular filtration rate (eGFR) will [...] of individuals. Performed By: #### L [id number] ####[facility] ([facility])[address] [place] [address] Glucose [Mass/Vol] 107 mg/dL High 70-100 [facility] Comment on above: Performed By: #### L [id number] ####[facility] ([facility])[address] [place] [address] Potassium [Moles/Vol] 3.1 mmol/L Low 3.5-5.1 [facility] Comment on above: Performed By: #### L [id number] ####[facility] ([facility])[address] [place] [address] Sodium [Moles/Vol] 137 mmol/L Normal 136-145 [facility] Comment on above: Performed By: #### L [id number] ####[facility] ([facility])[address] [place] [address] Urea nitrogen [Mass/Vol] 50 mg/dL High 7-25 [facility] Comment on above: Performed By: #### L [id number] ####[facility] ([facility])[address] [place] [address] UREA NITROGEN/CREATININE (MASS RATIO) IN SER/PLAS 22.0 Normal [facility] Comment on above: Performed By: #### L [id number] ####[facility] ([facility])[address] [place] [address] CBC WITH AUTO DIFFERENTIALon 11-21-2023 Basophils (Bld) [#/Vol] 0.03 10*3/uL Normal 0.00-0.20 [facility] Comment on above: Performed By: #### L [id number] ####[facility] ([facility])[address] [place] [address] Basophils/100 WBC (Bld) 0.2 % Normal 0.0-1.0 [facility] Comment on above: Performed By: #### L [id number] ####[facility] ([facility])[address] [place] [address] Eosinophils (Bld) [#/Vol] 0.04 10*3/uL Normal 0.00-0.50 [facility] Comment on above: Performed By: #### L [id number] ####[facility] ([facility])[address] [place] [address] Eosinophils/100 WBC (Bld) 0.3 % Normal 0.0-6.0 [facility] Comment on above: Performed By: #### L [id number] ####[facility] ([facility])[address] [place] [address] Erythrocyte distribution width (RBC) [Ratio] 15.2 % High 11.5-15.0 [facility] Comment on above: Performed By: #### L [id number] ####[facility] ([facility])[address] [place] [address] ERYTHROCYTE MEAN CORPUSCULAR HEMOGLOBIN CONCENTRATION (G/DL) BY AUTOMATED 32.0 g/dL Normal 32.0-35.[address] [facility] Comment on above: Performed By: #### L [id number] ####[facility] ([facility])[address] [place] [address] Hematocrit (Bld) [Volume fraction] 38.8 % Low 39.0-55.0 [facility] Comment on above: Performed By: #### L [id number] ####[facility] ([facility])[address] [place] [address] Hemoglobin (Bld) [Mass/Vol] 12.4 g/dL Low 13.0-17.0 [facility] Comment on above: Performed By: #### L [id number] ####[facility] ([facility])[address] [place] [address] Immature granulocytes (Bld) [#/Vol] 0.07 10*3/uL Normal 0.00-0.20 [facility] Comment on above: Performed By: #### L [id number] ####[facility] ([facility])[address] [place] [address] Immature granulocytes/100 WBC (Bld) 0.5 % Normal 0.0-1.0 [facility] Comment on above: Performed By: #### L [id number] ####[facility] ([facility])[address] [place] [address] Lymphocytes (Bld) [#/Vol] 0.84 10*3/uL Low 1.20-4.00 [facility] Comment on above: Performed By: #### L [id number] ####[facility] ([facility])[address] [place] [address] Lymphocytes/100 WBC (Bld) 6.2 % Low 20.0-45.0 [facility] Comment on above: Performed By: #### L [id number] ####[facility] ([facility])[address] [place] [address] MCH (RBC) [Entitic mass] 28.9 pg Normal 27.0-33.0 [facility] Comment on above: Performed By: #### L [id number] ####[facility] ([facility])[address] [place] [address] MCV (RBC) [Entitic vol] 90.4 fL Normal 82.0-98.0 [facility] Comment on above: Performed By: #### L [id number] ####[facility] ([facility])[address] [place] [address] Monocytes (Bld) [#/Vol] 1.00 10*3/uL Normal 0.10-1.00 [facility] Comment on above: Performed By: #### L [id number] ####[facility] ([facility])[address] [place] [address] Monocytes/100 WBC (Bld) 7.4 % Normal 5.0-12.0 [facility] Comment on above: Performed By: #### L [id number] ####[facility] [facility] [place] [address] Neutrophils (Bld) [#/Vol] 11.61 10*3/uL High 1.60-7.60 [facility] Comment on above: Performed By: #### L [id number] ####[facility] ([facility] [place] [address] Neutrophils/100 WBC (Bld) 85.4 % High 40.0-72.0 [facility] Comment on above: Performed By: #### L [id number] ####[facility] (BEAKER)[address] [place] [address] NRBC (PER 100 WBCS) BY AUTOMATED COUNT 0.0 % Normal 0 [facility] Comment on above: Performed By: #### L [id number] ####[facility] (BEAKER)[address] [place] [address] PLATELETS (10*3/UL) IN BLOOD AUTOMATED COUNT 176 10*3/uL Normal 150-400 [facility] Comment on above: Performed By: #### L [id number] ####[facility] (BEAKER)[address] [place] [address] RBC (Bld) [#/Vol] 4.29 10*6/uL Normal 4.20-5.70 [facility] Comment on above: Performed By: #### L [id number] ####[facility] ([facility] [place] [address] WBC (Bld) [#/Vol] 13.59 10*3/uL High 4.00-10.60 [facility] Comment on above: Performed By: #### L [id number] ####[facility] ([facility])[address] [place] [address] MAGNESIUMon 11-21-2023 Magnesium [Mass/Vol] 2.3 mg/dL Normal 1.9-2.7 [facility] Comment on above: Performed By: #### L [id number] ####[facility] ([facility])[address] [place] [address] 30on 11-20-2023 30 Normal [facility] 30 Normal [facility] 30 Normal [facility] BASIC METABOLIC PANELon 03-0 Anion gap [Moles/Vol] 15 mmol/L Normal 7-20 [facility] Comment on above: Performed By: #### L [id number] ####[facility] ([facility] [place] [address] Calcium [Mass/Vol] 9.4 mg/dL Normal 8.6-10.3 [facility] Comment on above: Performed By: #### L [id number] ####[facility] ([facility] [place] [address] Chloride [Moles/Vol] 101 mmol/L Normal 98-107 [facility] Comment on above: Performed By: #### L [id number] ####[facility] (BEAKER)[address] [place] [address] CO2 [Moles/Vol] 26 mmol/L Normal 21-31 [facility] Comment on above: Performed By: #### L [id number] ####[facility] (BEAKER)[address] [place] [address] Creatinine [Mass/Vol] 2.47 mg/dL High 0.70-1.30 [facility] Comment on above: Performed By: #### L [id number] ####[facility] ([facility])[address] [place] [address] GLOMERULAR FILTRATION RATE ML/MIN/1.73 SQ M.PREDICTED 25.5 mL/min/1.73m*2 Low >60.[address] [facility] Comment on above: Result Comment: [facility]???s estimated glomerular filtration rate (eGFR) will [...] of individuals. Performed By: #### L [id number] ####[facility] ([facility])[address] [place] [address] Glucose [Mass/Vol] 125 mg/dL High 70-100 [facility] Comment on above: Performed By: #### L [id number] ####[facility] ([facility])[address] [place] [address] Potassium [Moles/Vol] 3.5 mmol/L Normal 3.5-5.1 [facility] Comment on above: Performed By: #### L [id number] ####[facility] ([facility])[address] [facility] [address] Sodium [Moles/Vol] 138 mmol/L Normal 136-145 [facility] Comment on above: Performed By: #### L [id number] ####[facility] ([facility])[address] [facility] [address] Urea nitrogen [Mass/Vol] 52 mg/dL High 7-25 [facility] Comment on above: Performed By: #### L [id number] ####[facility] (BEAKER)[address] [place] [address] UREA NITROGEN/CREATININE (MASS RATIO) IN SER/PLAS 21.1 Normal [facility] Comment on above: Performed By: #### L [id number] ####[facility] (BEAKER)[address] [place] [address] Anion gap [Moles/Vol] 14 mmol/L Normal 7-20 [facility] Comment on above: Performed By: #### L [id number] ####[facility] (BEAKER)[address] [place] [address] Calcium [Mass/Vol] 9.4 mg/dL Normal 8.6-10.3 [facility] Comment on above: Performed By: #### L [id number] ####[facility] (BEAKER)[address] [place] [address] Chloride [Moles/Vol] 102 mmol/L Normal 98-107 [facility] Comment on above: Performed By: #### L [id number] ####[facility] (BEAKER)[address] [place] [address] CO2 [Moles/Vol] 25 mmol/L Normal 21-31 [facility] Comment on above: Performed By: #### L [id number] ####[facility] (BEAKER)[address] [place] [address] Creatinine [Mass/Vol] 2.43 mg/dL High 0.70-1.30 [facility] Comment on above: Performed By: #### L [id number] ####[facility] (BEAKER)[address] [place] [address] GLOMERULAR FILTRATION RATE ML/MIN/1.73 SQ M.PREDICTED 26.1 mL/min/1.73m*2 Low >60.[address] [facility] Comment on above: Result Comment: [facility]???s estimated glomerular filtration rate (eGFR) will [...] of individuals. Performed By: #### L [id number] ####[facility] ([facility] [place] [address] Glucose [Mass/Vol] 143 mg/dL High 70-100 [facility] Comment on above: Performed By: #### L [id number] ####[facility] ([facility])[address] [place] [address] Potassium [Moles/Vol] 3.9 mmol/L Normal 3.5-5.1 [facility] Comment on above: Performed By: #### L [id number] ####[facility] ([facility])[address] [place] [address] Sodium [Moles/Vol] 137 mmol/L Normal 136-145 [facility] Comment on above: Performed By: #### L [id number] ####[facility] (BEAKER)[address] [place] [address] Urea nitrogen [Mass/Vol] 47 mg/dL High 7-25 [facility] Comment on above: Performed By: #### L [id number] ####[facility] ([facility] [place] [address] UREA NITROGEN/CREATININE (MASS RATIO) IN SER/PLAS 19.3 Normal [facility] Comment on above: Performed By: #### L [id number] ####[facility] (BEAKER)[address] [place] [address] Anion gap [Moles/Vol] 14 mmol/L Normal 7-20 [facility] Comment on above: Performed By: #### L [id number] ####[facility] ([facility] [place] [address] Calcium [Mass/Vol] 9.4 mg/dL Normal 8.6-10.3 [facility] Comment on above: Performed By: #### L [id number] ####[facility] ([facility]ER)[address] [place] [address] Chloride [Moles/Vol] 103 mmol/L Normal 98-107 [facility] Comment on above: Performed By: #### L [id number] ####[facility] (BEAKER)[address] [place] [address] CO2 [Moles/Vol] 24 mmol/L Normal 21-31 [facility] Comment on above: Performed By: #### L [id number] ####[facility] (BEAKER)[address] [place] [address] Creatinine [Mass/Vol] 2.36 mg/dL High 0.70-1.30 [facility] Comment on above: Performed By: #### L [id number] ####[facility] (BEAKER)[address] [place] [address] GLOMERULAR FILTRATION RATE ML/MIN/1.73 SQ M.PREDICTED 27.0 mL/min/1.73m*2 Low >60.[address] [facility] Comment on above: Result Comment: [facility]???s estimated glomerular filtration rate (eGFR) will [...] of individuals. Performed By: #### L [id number] ####[facility] (BEAKER)[address] [place] [address] Glucose [Mass/Vol] 153 mg/dL High 70-100 [facility] Comment on above: Performed By: #### L [id number] ####[facility] (BEAKER)[address] [place] [address] Potassium [Moles/Vol] 3.7 mmol/L Normal 3.5-5.1 [facility] Comment on above: Performed By: #### L [id number] ####[facility] ([facility])[address] [place] [address] Sodium [Moles/Vol] 137 mmol/L Normal 136-145 [facility] Comment on above: Performed By: #### L [id number] ####[facility] ([facility])[address] [place] [address] Urea nitrogen [Mass/Vol] 46 mg/dL High 7-25 [facility] Comment on above: Performed By: #### L [id number] ####[facility] ([facility])[address] [place] [address] UREA NITROGEN/CREATININE (MASS RATIO) IN SER/PLAS 19.5 Normal [facility] Comment on above: Performed By: #### L [id number] ####[facility] ([facility])[address] [place] [address] CBC WITH AUTO DIFFERENTIALon 11-20-2023 Basophils (Bld) [#/Vol] 0.02 10*3/uL Normal 0.00-0.20 [facility] Comment on above: Performed By: #### L [id number] ####[facility] ([facility])[address] [place] [address] Basophils/100 WBC (Bld) 0.1 % Normal 0.0-1.0 [facility] Comment on above: Performed By: #### L [id number] ####[facility] ([facility] [place] [address] Eosinophils (Bld) [#/Vol] 0.00 10*3/uL Normal 0.00-0.50 [facility] Comment on above: Performed By: #### L [id number] ####[facility] ([facility] [place] [address] Eosinophils/100 WBC (Bld) 0.0 % Normal 0.0-6.0 [facility] Comment on above: Performed By: #### L [id number] ####[facility] (BEAKER)[address] [place] [address] Erythrocyte distribution width (RBC) [Ratio] 15.1 % High 11.5-15.0 [facility] Comment on above: Performed By: #### L [id number] ####[facility] ([facility])[address] [place] [address] ERYTHROCYTE MEAN CORPUSCULAR HEMOGLOBIN CONCENTRATION (G/DL) BY AUTOMATED 32.4 g/dL Normal 32.0-35.[address] [facility] Comment on above: Performed By: #### L [id number] ####[facility] ([facility] [place] [address] Hematocrit (Bld) [Volume fraction] 35.8 % Low 39.0-55.0 [facility] Comment on above: Performed By: #### L [id number] ####[facility] ([facility] [place] [address] Hemoglobin (Bld) [Mass/Vol] 11.6 g/dL Low 13.0-17.0 [facility] Comment on above: Performed By: #### L [id number] ####[facility] (BEAKER)[address] [place] [address] Immature granulocytes (Bld) [#/Vol] 0.11 10*3/uL Normal 0.00-0.20 [facility] Comment on above: Performed By: #### L [id number] ####[facility] ([facility] [place] [address] Immature granulocytes/100 WBC (Bld) 0.8 % Normal 0.0-1.0 [facility] Comment on above: Performed By: #### L [id number] ####[facility] (BEAKER)[address] [place] [address] Lymphocytes (Bld) [#/Vol] 0.59 10*3/uL Low 1.20-4.00 [facility] Comment on above: Performed By: #### L [id number] ####[facility] ([facility]ER)[address] [place] [address] Lymphocytes/100 WBC (Bld) 4.2 % Low 20.0-45.0 [facility] Comment on above: Performed By: #### L [id number] ####[facility] (BEAKER)[address] [place] [address] MCH (RBC) [Entitic mass] 29.5 pg Normal 27.0-33.0 [facility] Comment on above: Performed By: #### L [id number] ####[facility] (BEAKER)[address] [place] [address] MCV (RBC) [Entitic vol] 91.1 fL Normal 82.0-98.0 [facility] Comment on above: Performed By: #### L [id number] ####[facility] (BEAKER)[address] [place] [address] Monocytes (Bld) [#/Vol] 0.85 10*3/uL Normal 0.10-1.00 [facility] Comment on above: Performed By: #### L [id number] ####[facility] (BEAKER)[address] [place] [address] Monocytes/100 WBC (Bld) 6.0 % Normal 5.0-12.0 [facility] Comment on above: Performed By: #### L [id number] ####[facility] (BEAKER)[address] [place] [address] Neutrophils (Bld) [#/Vol] 12.57 10*3/uL High 1.60-7.60 [facility] Comment on above: Performed By: #### L [id number] ####[facility] (BEAKER)[address] [place] [address] Neutrophils/100 WBC (Bld) 88.9 % High 40.0-72.0 [facility] Comment on above: Performed By: #### L [id number] ####[facility] (BEAKER)[address] [place] [address] NRBC (PER 100 WBCS) BY AUTOMATED COUNT 0.0 % Normal 0 [facility] Comment on above: Performed By: #### L [id number] ####[facility] ([facility])[address] [place] [address] PLATELETS (10*3/UL) IN BLOOD AUTOMATED COUNT 159 10*3/uL Normal 150-400 [facility] Comment on above: Performed By: #### L [id number] ####[facility] ([facility])[address] [place] [address] RBC (Bld) [#/Vol] 3.93 10*6/uL Low 4.20-5.70 [facility] Comment on above: Performed By: #### L [id number] ####[facility] ([facility])[address] [place] [address] WBC (Bld) [#/Vol] 14.14 10*3/uL High 4.00-10.60 [facility] Comment on above: Performed By: #### L [id number] ####[facility] ([facility])[address] [place] [address] CONSULTon 11-20-2023 CONSULT Normal [facility] CREATININE, URINE, RANDOMon 11-20-2023 Creatinine (U) [Mass/Vol] 63.0 mg/dL Normal 26-299 [facility] Comment on above: Performed By: #### L [id number] ####[facility] ([facility])[address] [place] [address] MAGNESIUMon 11-20-2023 Magnesium [Mass/Vol] 2.2 mg/dL Normal 1.9-2.7 [facility] Comment on above: Performed By: #### L [id number] ####[facility] ([facility])[address] [place] [address] PROTEIN, URINE, RANDOMon Protein (U) [Mass/Vol] 12.0 mg/dL Normal [facility] Comment on above: Result Comment: Ther e are no established reference values for random urine specimens. Performed By: #### L [id number] ####[facility] ([facility])[address] [place] [address] URINALYSIS WITH REFLEX CULTU REon 11-20-2023 BILIRUBIN, TOTAL PRESENCE IN URINE Negative Normal Negative [facility] Comment on above: Order Comment: Micro scopics not performed on urines with negative chemical reactions unless requested on original order. Performed By: #### L [id number] ####[facility] ([facility])[address] [place] [address] Clarity (U) Clear Normal Clear [facility] Comment on above: Order Comment: Micro scopics not performed on urines with negative chemical reactions unless requested on original order. Performed By: #### L [id number] ####[facility] ([facility])[address] [place] [address] Color (U) Straw Abnormal Yellow [facility] Comment on above: Order Comment: Micro scopics not performed on urines with negative chemical reactions unless requested on original order. Performed By: #### L [id number] ####[facility] ([facility])[address] [place] [address] Glucose (U) [Mass/Vol] 150 mg/dL Abnormal Negative [facility] Comment on above: Order Comment: Micro scopics not performed on urines with negative chemical reactions unless requested on original order. Performed By: #### L [id number] ####[facility] ([facility])[address] [place] [address] HEMOGLOBIN PRESENCE IN URINE Negative Normal Negative [facility] Comment on above: Order Comment: Micro scopics not performed on urines with negative chemical reactions unless requested on original order. Performed By: #### L [id number] ####[facility] ([facility])[address] [place] [address] Ketones Ql (U) Negative Normal Negative [facility] Comment on above: Order Comment: Micro scopics not performed on urines with negative chemical reactions unless requested on original order. Performed By: #### L [id number] ####[facility] ([facility])[address] [place] [address] LEUKOCYTE ESTERASE PRESENCE IN URINE BY TEST STRIP Negative Normal Negative [facility] Comment on above: Order Comment: Micro scopics not performed on urines with negative chemical reactions unless requested on original order. Performed By: #### L [id number] ####[facility] ([facility])[address] [place] [address] NITRITE PRESENCE IN URINE Negative Normal Negative [facility] Comment on above: Order Comment: Micro scopics not performed on urines with negative chemical reactions unless requested on original order. Performed By: #### L [id number] ####[facility] ([facility])[address] [place] [address] pH (U) 5.0 [pH] Normal 5.0-8.0 [facility] Comment on above: Order Comment: Micro scopics not performed on urines with negative chemical reactions unless requested on original order. Performed By: #### L [id number] ####[facility] ([facility])[address] [place] [address] Protein (U) [Mass/Vol] Negative Normal Negative [facility] Comment on above: Order Comment: Micro scopics not performed on urines with negative chemical reactions unless requested on original order. Performed By: #### L [id number] ####[facility] ([facility])[address] [place] [address] Specific gravity (U) [Rel density] 1.011 Low 1.015-1.020 [facility] Comment on above: Order Comment: Micro scopics not performed on urines with negative chemical reactions unless requested on original order. Performed By: #### L [id number] ####[facility] ([facility])[address] [place] [address] 30on 11-19-2023 30 Normal [facility] ANESon 11-19-2023 ANES Normal [facility] B-TYPE NATRIURETIC PEPTIDEon 11-19-2023 Natriuretic peptide B (Bld) [Mass/Vol] 1747 pg/mL High 0-100 [facility] Comment on above: Performed By: #### L [id number] ####[facility] [place] [address] BASIC METABOLIC PANELon 03-0 Anion gap [Moles/Vol] 16 mmol/L Normal 7-20 [facility] Comment on above: Performed By: #### L [id number] ####[facility] (BEAKER)[address] [place] [address] Calcium [Mass/Vol] 9.6 mg/dL Normal 8.6-10.3 [facility] Comment on above: Performed By: #### L [id number] ####[facility] [place] [address] Chloride [Moles/Vol] 103 mmol/L Normal 98-107 [facility] Comment on above: Performed By: #### L [id number] ####[facility] ([facility] [place] [address] CO2 [Moles/Vol] 22 mmol/L Normal 21-31 [facility] Comment on above: Performed By: #### L [id number] ####[facility] ([facility])[address] [place] [address] Creatinine [Mass/Vol] 2.13 mg/dL High 0.70-1.30 [facility] Comment on above: Performed By: #### L [id number] ####[facility] ([facility])[address] [place] [address] GLOMERULAR FILTRATION RATE ML/MIN/1.73 SQ M.PREDICTED 30.5 mL/min/1.73m*2 Low >60.[address] [facility] Comment on above: Result Comment: [facility]???s estimated glomerular filtration rate (eGFR) will [...] of individuals. Performed By: #### L [id number] ####[facility] ([facility])[address] [place] [address] Glucose [Mass/Vol] 118 mg/dL High 70-100 [facility] Comment on above: Performed By: #### L [id number] ####[facility] ([facility])[address] [place] [address] Potassium [Moles/Vol] 4.4 mmol/L Normal 3.5-5.1 [facility] Comment on above: Performed By: #### L [id number] ####[facility] ([facility])[address] [facility] [place] [address] Sodium [Moles/Vol] 137 mmol/L Normal 136-145 [facility] Comment on above: Performed By: #### L [id number] ####[facility] ([facility])[address] [facility] [address] Urea nitrogen [Mass/Vol] 41 mg/dL High 7-25 [facility] Comment on above: Performed By: #### L [id number] ####[facility] ([facility])[address] [facility] [address] UREA NITROGEN/CREATININE (MASS RATIO) IN SER/PLAS 19.2 Normal [facility] Comment on above: Performed By: #### L [id number] ####[facility] ([facility])[address] [place] [address] CBC WITH AUTO DIFFERENTIALon 11-19-2023 Basophils (Bld) [#/Vol] 0.04 10*3/uL Normal 0.00-0.20 [facility] Comment on above: Performed By: #### L [id number] ####[facility] ([facility])[address] [place] [address] Basophils/100 WBC (Bld) 0.5 % Normal 0.0-1.0 [facility] Comment on above: Performed By: #### L [id number] ####[facility] [place] [address] Eosinophils (Bld) [#/Vol] 0.03 10*3/uL Normal 0.00-0.50 [facility] Comment on above: Performed By: #### L [id number] ####[facility] (BEAKER)[address] [place] [address] Eosinophils/100 WBC (Bld) 0.4 % Normal 0.0-6.0 [facility] Comment on above: Performed By: #### L [id number] ####[facility] (BE[facility]ER)[address] [place] [address] Erythrocyte distribution width (RBC) [Ratio] 15.3 % High 11.5-15.0 [facility] Comment on above: Performed By: #### L [id number] ####[facility] ([facility]ER)[address] [place] [address] ERYTHROCYTE MEAN CORPUSCULAR HEMOGLOBIN CONCENTRATION (G/DL) BY AUTOMATED 31.8 g/dL Low 32.0-35.[address] [facility] Comment on above: Performed By: #### L [id number] ####[facility] ([facility]ER)[address] [place] [address] Hematocrit (Bld) [Volume fraction] 39.0 % Normal 39.0-55.0 [facility] Comment on above: Performed By: #### L [id number] ####[facility] ([facility])[address] [place] [address] Hemoglobin (Bld) [Mass/Vol] 12.4 g/dL Low 13.0-17.0 [facility] Comment on above: Performed By: #### L [id number] ####[facility] ([facility])[address] [place] [address] Immature granulocytes (Bld) [#/Vol] 0.03 10*3/uL Normal 0.00-0.20 [facility] Comment on above: Performed By: #### L [id number] ####[facility] ([facility])[address] [place] [address] Immature granulocytes/100 WBC (Bld) 0.4 % Normal 0.0-1.0 [facility] Comment on above: Performed By: #### L [id number] ####[facility] [place] [address] Lymphocytes (Bld) [#/Vol] 1.02 10*3/uL Low 1.20-4.00 [facility] Comment on above: Performed By: #### L [id number] ####[facility] ([facility])[address] [place] [address] Lymphocytes/100 WBC (Bld) 12.1 % Low 20.0-45.0 [facility] Comment on above: Performed By: #### L [id number] ####[facility] ([facility])[address] [place] [address] MCH (RBC) [Entitic mass] 29.0 pg Normal 27.0-33.0 [facility] Comment on above: Performed By: #### L [id number] ####[facility] ([facility] [place] [address] MCV (RBC) [Entitic vol] 91.3 fL Normal 82.0-98.0 [facility] Comment on above: Performed By: #### L [id number] ####[facility] ([facility] [place] [address] Monocytes (Bld) [#/Vol] 0.45 10*3/uL Normal 0.10-1.00 [facility] Comment on above: Performed By: #### L [id number] ####[facility] ([facility])[address] [place] [address] Monocytes/100 WBC (Bld) 5.3 % Normal 5.0-12.0 [facility] Comment on above: Performed By: #### L [id number] ####[facility] ([facility])[address] [place] [address] Neutrophils (Bld) [#/Vol] 6.88 10*3/uL Normal 1.60-7.60 [facility] Comment on above: Performed By: #### L [id number] ####[facility] ([facility])[address] [place] [address] Neutrophils/100 WBC (Bld) 81.3 % High 40.0-72.0 [facility] Comment on above: Performed By: #### L [id number] ####[facility] ([facility])[address] [place] [address] NRBC (PER 100 WBCS) BY AUTOMATED COUNT 0.0 % Normal 0 [facility] Comment on above: Performed By: #### L [id number] ####[facility] ([facility])[address] [place] [address] PLATELETS (10*3/UL) IN BLOOD AUTOMATED COUNT 167 10*3/uL Normal 150-400 [facility] Comment on above: Performed By: #### L [id number] ####[facility] ([facility])[address] [place] [address] RBC (Bld) [#/Vol] 4.27 10*6/uL Normal 4.20-5.70 [facility] Comment on above: Performed By: #### L [id number] ####[facility] ([facility])[address] [place] [address] WBC (Bld) [#/Vol] 8.45 10*3/uL Normal 4.00-10.60 [facility] Comment on above: Performed By: #### L [id number] ####[facility] ([facility])[address] [place] [address] CONSULTon 11-19-2023 CONSULT [facility] HPon 11-19-2023 HP [facility] HP H&P reviewed. The bev cordero was examined and there are no changes to the H&P. [facility] NURSNOTEon 11-19-2023 NURSNOTE Family took patient' s wallet home. [facility] NURSNOTE Report called to Venessa lui RN, RN verbalized understanding. Normal [facility] POCT GLUCOSE METER UNSOLICIT ED RESULTSon 11-19-2023 Glucose [Mass/Vol] 103 mg/dL Normal 70-105 [facility] Comment on above: Order Comment: Waive d Testing in the ED is performed under the ED CLIA certificate #[id number]. Result Comment: [email or web address] Performed By: #### L [id number] ####[facility] ([facility])[address] [place] [address] HPon 11-18-2023 HP Normal [facility] CNOVon 10-29-2023 CNOV Normal [facility] ECG COMPLETEon 10-29-2023 ECG COMPLETE Normal [facility] ICD REMOTE CHECKon 3 AV Delay Adaptive Paced Minimum (ms) 200 ms [facility] AV Delay Adaptive Sensed Minimum (ms) 170 ms [facility] Bj RA Pacing Amplitude (volts) 2.0 V [facility] Bj RA Pacing Polarity BI [facility] Bj RA Pacing Pulse Width (ms) 0.5 ms [facility] Bj RA Sensing Amplitude (mvolts) 0.25 mV [facility] Bj RA Sensing Polarity BI [facility] Bj RV Pacing Amplitude (volts) 2.0 V [facility] Bj RV Pacing Polarity BI [facility] Bj RV Pacing Pulse Width (ms) 0.5 ms [facility] Bj RV Sensing Amplitude (mvolts) 0.3 mV [facility] Bj RV Sensing Polarity BI [facility] Detection Configuration (Vent) 2 - Zone [facility] FastVT_Detection Interval 250 ms [facility] FastVT_Therapy Configuration 1 ATP(s) + 8 Shock(s) [facility] ICD FastVT DetectionStatus ENABLED [facility] ICD-AMS EPISODES 170 {beats}/min [facility] ICD-ATP Episodes (Vent) 0 [facility] ICD-ATRIALFIBRILLAT ION 2 [facility] ICD-ATRIALTACHYCARD IA 2 [facility] ICD-ATRIALTACHYCARD IA 5 [facility] ICD-Device Mfg BSX [facility] ICD-Fast Ventricular Tachycardia 5 [facility] ICD-LEADIMPEDANCEAT RIAL 746 ohm [facility] ICD-Percent Pacing (Atrial) 1 % [facility] ICD-Percent Pacing (Vent) 0 % [facility] ICD-Shocks Aborted (Vent) 0 [facility] [id number] D 0 [facility] ICD-SHOCKSABORTED 0 [facility] ICD-SHOCKSDELIVERED VENTRICULAR 0 [facility] ICD-Ventricular Fibrillation 0 [facility] Lead Impedance (RV) 426 ohm [facility] Lead Impedance High Voltage 49 ohm [facility] Lead1 Mfg BSX [facility] Lead2 Mfg BSX [facility] Location RV [facility] Location RA [facility] Lower Rate (bpm) 50 {beats}/min [facility] Max Sensor Rate (bpm) 130 {beats}/min [facility] MDT_PROG_TACHY_ZONE _DETECTIONS_STATUS ENABLED [facility] Model D142 INOGEN [facility] Model 0675 Elsie 4-Front [facility] Model 7741 Ingevity MRI [facility] Pacing Mode DDDR [facility] Serial Number [id number] [facility] Serial Number [id number] [facility] Serial Number [id number] [facility] Test Charge Energy 23 J [facility] Test Charge Time 10.2 s [facility] Therapy Status (Vent) Enabled [facility] Thresh RA Capture Amplitude (volts) 0.6 V [facility] Thresh RA Capture Duration (ms) 0.5 ms [facility] Thresh RV Capture Amplitude (VOLTS) 0.5 V [facility] Thresh RV Capture Duration (MS) 0.5 ms [facility] Tracking Rate (bpm) 130 {beats}/min [facility] VF Zone Detection Interval 250 ms [facility] VF Zone Therapy Configuration 1 ATP(s) + 8 Shock(s) [facility] No Panel Informationon 02-21 BLANK _ [facility] ICD-ATRIALTACHYCARD IA 0 [facility] ICD-Fast Ventricular Tachycardia 0 [facility] Implant Date 03/24/2019 [facility] FREE T3on 02-08-2023 FREE T3 3.21 pg/mlL Normal 2.18-3.98 [facility] Comment on above: Performed By: #### V ITAD #### [facility] [address] [place] [address] Dr. Silva Burnett FREE T4on 02-08-2023 Free T4 [Mass/Vol] 0.74 ng/dL Critically low 0.76-1.46 [facility] Comment on above: Performed By: #### B MP, BNP #### [facility] [address] [place], [place] [address] Dr. Silva Burnett TSHon 02-08-2023 TSH 0.168 uIU/mL Critically low 0.358-3.740 [facility] Comment on above: Performed By: #### V ITAD #### [facility] [id number] Silva Burnett ICD REMOTE CHECKon 3 AV Delay Adaptive Paced Minimum (ms) 200 ms [facility] AV Delay Adaptive Sensed Minimum (ms) 170 ms [facility] Bj RA Pacing Amplitude (volts) 2 V [facility] Bj RA Pacing Polarity BI [facility] Bj RA Pacing Pulse Width (ms) 0.5 ms [facility] Bj RA Sensing Amplitude (mvolts) 0.25 mV [facility] Bj RA Sensing Polarity BI [facility] Bj RV Pacing Amplitude (volts) 2 V [facility] Bj RV Pacing Polarity BI [facility] Bj RV Pacing Pulse Width (ms) 0.5 ms [facility] Bj RV Sensing Amplitude (mvolts) 0.3 mV [facility] Bj RV Sensing Polarity BI [facility] Detection Configuration (Vent) 2 - Zone [facility] FastVT_Detection Interval 250 ms [facility] FastVT_Therapy Configuration 1 ATP(s) + 8 Shock(s) [facility] ICD FastVT DetectionStatus ENABLED [facility] ICD-AMS EPISODES 170 {beats}/min [facility] ICD-ATP Episodes (Vent) 0 [facility] ICD-ATRIALFIBRILLAT ION 1 [facility] ICD-ATRIALTACHYCARD IA 1 [facility] ICD-ATRIALTACHYCARD IA 3 [facility] ICD-Device Mfg BSX [facility] ICD-Fast Ventricular Tachycardia 3 [facility] ICD-LEADIMPEDANCEAT RIAL 786 ohm [facility] ICD-Percent Pacing (Atrial) 1 % [facility] ICD-Percent Pacing (Vent) 0 % [facility] ICD-Shocks Aborted (Vent) 0 [facility] [id number] D 0 [facility] ICD-SHOCKSABORTED 0 [facility] ICD-SHOCKSDELIVERED VENTRICULAR 0 [facility] ICD-Ventricular Fibrillation 0 [facility] Lead Impedance (RV) 458 ohm [facility] Lead Impedance High Voltage 53 ohm [facility] Lead1 Mfg BSX [facility] Lead2 Mfg BSX [facility] Location RV [facility] Location RA [facility] Lower Rate (bpm) 50 {beats}/min [facility] Max Sensor Rate (bpm) 130 {beats}/min [facility] MDT_PROG_TACHY_ZONE _DETECTIONS_STATUS ENABLED [facility] Model D142 INOGEN [facility] Model 0675 Elsie 4-Front [facility] Model 7741 Ingevity MRI [facility] Pacing Mode DDDR [facility] Serial Number [id number] [facility] Serial Number [id number] [facility] Serial Number [id number] [facility] Test Charge Energy 23 J [facility] Test Charge Time 10.2 s [facility] Therapy Status (Vent) Enabled [facility] Thresh RA Capture Amplitude (volts) 0.6 V [facility] Thresh RA Capture Duration (ms) 0.5 ms [facility] Thresh RV Capture Amplitude (VOLTS) 0.5 V [facility] Thresh RV Capture Duration (MS) 0.5 ms [facility] Tracking Rate (bpm) 130 {beats}/min [facility] VF Zone Detection Interval 250 ms [facility] VF Zone Therapy Configuration 1 ATP(s) + 8 Shock(s) [facility] No Panel Informationon 11-07 BLANK _ [facility] ICD-ATRIALTACHYCARD IA 0 [facility] ICD-Fast Ventricular Tachycardia 0 [facility] Implant Date 03/24/2019 [facility] Comprehensive metabolic 2000 panelon 10-26-2022 Albumin [Mass/Vol] 4.0 g/dL 3.9 - 4.9 g/dL [facility] ALP [Catalytic activity/Vol] 103 U/L 38 - 113 U/L [facility] ALT [Catalytic activity/Vol] 15 U/L 10 - 54 U/L [facility] Anion gap [Moles/Vol] 17 mmol/L 9 - 18 mmol/L [facility] AST [Catalytic activity/Vol] 26 U/L 14 - 40 U/L [facility] Bilirubin [Mass/Vol] 0.6 mg/dL 0.2 - 1.3 mg/dL [facility] Calcium [Mass/Vol] 10.2 mg/dL 8.5 - 10. 2 mg/dL [facility] Chloride [Moles/Vol] 103 mmol/L 97 - 105 mmol/L [facility] CO2 [Moles/Vol] 20 mmol/L Low 22 - 30 mmol/L [facility] Creatinine [Mass/Vol] 1.89 mg/dL High 0.73 - 1.22 mg/dL [facility] Estimated Glomerular Filtration Rate 35 mL/min/1.73m Low >=60 mL/min/1.73m [facility] Glucose [Mass/Vol] 103 mg/dL High 74 - 99 mg/dL [facility] Potassium [Moles/Vol] 5.5 mmol/L High 3.7 - 5.1 mmol/L [facility] Protein [Mass/Vol] 7.7 g/dL 6.3 - 8.0 g/dL [facility] Sodium [Moles/Vol] 140 mmol/L 136 - 144 mmol/L [facility] Urea nitrogen [Mass/Vol] 40 mg/dL High 9 - 24 mg/dL [facility] NT PRO BNPon 10-26-2022 Natriuretic peptide.B prohormone N-Terminal [Mass/Vol] 5553 pg/mL High <450 pg/mL [facility] CBC W Auto Differential pane l (Bld)on 10-25-2022 Basophils (Bld) [#/Vol] <0.11 k/uL [facility] Basophils/100 WBC (Bld) 0.3 % [facility] Differential cell count method Nom (Bld) Auto [facility] Eosinophils (Bld) [#/Vol] 0.20 10*3/uL <0.46 k/uL [facility] Eosinophils/100 WBC (Bld) 2.7 % [facility] Erythrocyte distribution width (RBC) [Ratio] 13.6 % 11.5 - 15.0 % [facility] Hematocrit (Bld) [Volume fraction] 47.3 % 39.0 - 51.0 % [facility] Hemoglobin (Bld) [Mass/Vol] 14.6 g/dL 13.0 - 17.0 g/dL [facility] Immature granulocytes (Bld) [#/Vol] <0.10 k/uL [facility] Immature granulocytes/100 WBC (Bld) 0.3 % [facility] Lymphocytes (Bld) [#/Vol] 1.40 10*3/uL 1.00 - 4.00 k/uL [facility] Lymphocytes/100 WBC (Bld) 19.0 % [facility] MCH (RBC) [Entitic mass] 29.1 pg 26.0 - 34.0 pg [facility] MCHC (RBC) [Mass/Vol] 30.9 g/dL 30.5 - 36.0 g/dL [facility] MCV (RBC) [Entitic vol] 94.2 fL 80.0 - 100.0 fL [facility] Monocytes (Bld) [#/Vol] 0.65 10*3/uL <0.87 k/uL [facility] Monocytes/100 WBC (Bld) 8.8 % [facility] Neutrophils (Bld) [#/Vol] 5.06 10*3/uL 1.45 - 7.50 k/uL [facility] Neutrophils/100 WBC (Bld) 68.9 % [facility] Nucleated RBC (Bld) [#/Vol] <0.01 k/uL [facility] Nucleated RBC/100 WBC (Bld) [Ratio] 0.0 /100 WBC [facility] Platelet mean volume (Bld) [Entitic vol] 10.7 fL 9.0 - 12.7 fL [facility] Platelets (Bld) [#/Vol] 159 10*3/uL 150 - 400 k/uL [facility] RBC (Bld) [#/Vol] 5.02 10*6/uL 4.20 - 6.0 0 m/uL [facility] WBC (Bld) [#/Vol] 7.35 10*3/uL 3.70 - 11. 00 k/uL [facility] GLUCOSE, BLOOD (POC)on 10-25 Glucose [Mass/Vol] 94 mg/dL 74 - 99 mg/dL [facility] Glucose [Mass/Vol] 101 mg/dL Abnormal 74 - 99 mg/dL [facility] No Panel Informationon 10-25 [facility] BNPon 08-30-2022 Natriuretic peptide B (Bld) [Mass/Vol] 5149.0 pg/mL Critically high <=1,800.0 [facility] Comment on above: Performed By: #### B MP, BNP #### [facility] [address] [address] [address] Silva Burnett PROF CHEM 8 (BAS METB)on Anion gap [Moles/Vol] 9.3 mmol/L Normal [facility] Comment on above: Performed By: #### B MP, BNP #### [facility] [address] [place] [address] Dr. Silva Burnett Calcium [Mass/Vol] 9.5 mg/dL Normal 8.5-10.1 [facility] Comment on above: Performed By: #### B MP, BNP #### [facility] [address] [place] [address] Dr. Silva Burnett Chloride [Moles/Vol] 103 mmol/L Normal 98-107 [facility] Comment on above: Performed By: #### B MP, BNP #### [facility] [address] [place] [address] Dr. Silva Burnett CO2 [Moles/Vol] 30.2 mmol/L Normal 21.0-32.0 [facility] Comment on above: Performed By: #### B MP, BNP #### [facility] [address] [place] [address] Dr. Silva Burnett Creatinine [Mass/Vol] 1.86 mg/dL Critically high 0.70-1.30 [facility] Comment on above: Performed By: #### B MP, BNP #### [facility] [address] [place] [address] Dr. Silva Burnett EGFR-AF SAUDI ARABIAN 43 mL/min/1.73m2 Critically low >=60 [facility] Comment on above: Performed By: #### B MP, BNP #### [facility] [address] [place] [address] Dr. Silva Burnett EGFR-NON AF [place]UDI ARABIAN 35 mL/min/1.73m2 Critically low >=60 [facility] Comment on above: Performed By: #### B MP, BNP #### [facility] [address] [place] [address] Dr. Silva Burnett Glucose [Mass/Vol] 108 mg/dL Critically high 74-106 [facility] Comment on above: Performed By: #### B MP, BNP #### [facility] [address] [place] [address] Dr. Silva Burnett Potassium [Moles/Vol] 4.5 mmol/L Normal 3.5-5.1 [facility] Comment on above: Performed By: #### B MP, BNP #### [facility] [address] [address] [address] Silva Burnett Sodium [Moles/Vol] 138 mmol/L Normal 136-145 [facility] Comment on above: Performed By: #### B MP, BNP #### [facility] [address] [address] [address] Silva Burnett Urea nitrogen [Mass/Vol] 27.0 mg/dL Critically high 7.0-18.0 [facility] Comment on above: Performed By: #### B MP, BNP #### [facility] [address] [address] [address] Silva Burnett Urea nitrogen/Creatinine [Mass ratio] 14.5 mg/mg Normal [facility] Comment on above: Performed By: #### B MP, BNP #### [facility] [address] [address] [address] Silva Burnett ICD REMOTE CHECKon 2 AV Delay Adaptive Paced Minimum (ms) 200 ms [facility] AV Delay Adaptive Sensed Minimum (ms) 170 ms [facility] Bj RA Pacing Amplitude (volts) 2 V [facility] Bj RA Pacing Polarity BI [facility] Bj RA Pacing Pulse Width (ms) 0.5 ms [facility] Bj RA Sensing Amplitude (mvolts) 0.25 mV [facility] Bj RA Sensing Polarity BI [facility] Bj RV Pacing Amplitude (volts) 2 V [facility] Bj RV Pacing Polarity BI [facility] Bj RV Pacing Pulse Width (ms) 0.5 ms [facility] Bj RV Sensing Amplitude (mvolts) 0.3 mV [facility] Bj RV Sensing Polarity BI [facility] Detection Configuration (Vent) 2 - Zone [facility] FastVT_Detection Interval 250 ms [facility] FastVT_Therapy Configuration 1 ATP(s) + 8 Shock(s) [facility] ICD FastVT DetectionStatus ENABLED [facility] ICD-AMS EPISODES 170 {beats}/min [facility] ICD-ATP Episodes (Vent) 0 [facility] ICD-ATRIALFIBRILLAT ION 0 [facility] ICD-ATRIALTACHYCARD IA 1 [facility] ICD-Device Mfg BSX [facility] ICD-Fast Ventricular Tachycardia 1 [facility] ICD-LEADIMPEDANCEAT RIAL 743 ohm [facility] ICD-Percent Pacing (Atrial) 0 % [facility] ICD-Percent Pacing (Vent) 0 % [facility] ICD-Shocks Aborted (Vent) 0 [facility] [id number] D 0 [facility] ICD-SHOCKSABORTED 0 [facility] ICD-SHOCKSDELIVERED VENTRICULAR 0 [facility] ICD-Ventricular Fibrillation 0 [facility] Lead Impedance (RV) 431 ohm [facility] Lead Impedance High Voltage 48 ohm [facility] Lead1 Mfg BSX [facility] Lead2 Mfg BSX [facility] Location RV [facility] Location RA [facility] Lower Rate (bpm) 50 {beats}/min [facility] Max Sensor Rate (bpm) 130 {beats}/min [facility] MDT_PROG_TACHY_ZONE _DETECTIONS_STATUS ENABLED [facility] Model D142 INOGEN [facility] Model 0675 Elsie 4-Front [facility] Model 7741 Ingevity MRI [facility] Pacing Mode DDDR [facility] Serial Number [id number] [facility] Serial Number [id number] [facility] Serial Number [id number] [facility] Test Charge Energy 23 J [facility] Test Charge Time 10.1 s [facility] Therapy Status (Vent) Enabled [facility] Thresh RA Capture Amplitude (volts) 0.6 V [facility] Thresh RA Capture Duration (ms) 0.5 ms [facility] Thresh RV Capture Amplitude (VOLTS) 0.5 V [facility] Thresh RV Capture Duration (MS) 0.5 ms [facility] Tracking Rate (bpm) 130 {beats}/min [facility] VF Zone Detection Interval 250 ms [facility] VF Zone Therapy Configuration 1 ATP(s) + 8 Shock(s) [facility] No Panel Informationon 08-07 BLANK _ [facility] ICD-ATRIALTACHYCARD IA 0 [facility] ICD-Fast Ventricular Tachycardia 0 [facility] Implant Date 03/24/2019 [facility] BNPon 07-23-2022 Natriuretic peptide B (Bld) [Mass/Vol] 5638.0 pg/mL Critically high <=1,800.0 [facility] Comment on above: Performed By: #### B MP, BNP, LIPID #### [facility] [address], [place] [address] Dr. Silva Burnett LIPID PROFILEon 07-23-2022 CHOL-HDL RATIO NORM SEE BELOW Normal [facility] Comment on above: Result Comment: 3.3 - 4.4 LOW RISK 4.4 - 7.1 AVERAGE RISK 7.1 - 11.0 MODERATE RISK >11.0 HIGH RISK Performed By: #### B MP, BNP, LIPID #### [facility] [address] [address] [address] Silva Burnett Cholesterol [Mass/Vol] 126 mg/dL Normal <=200 [facility] Comment on above: Performed By: #### B MP, BNP, LIPID #### [facility] [address] [address] [address] Silva Burnett Cholesterol in HDL [Mass/Vol] 51 mg/dL Normal 40-60 [facility] Comment on above: Performed By: #### B MP, BNP, LIPID #### [facility] [address] [address] [address] Silva Burnett Cholesterol in LDL [Mass/Vol] 61.4 mg/dL Normal [facility] Comment on above: Performed By: #### B MP, BNP, LIPID #### [facility] [address] [address] [address] Silva Burnett Cholesterol.total/C holesterol in HDL [Mass ratio] 2.5 {ratio} Normal [facility] Comment on above: Performed By: #### B MP, BNP, LIPID #### [facility] [address], [place] [address] Dr. Silva Burnett HDL NORMAL > or = 60 mg/dl - LO W CARDIOVASCULAR RISK <40 mg/dl - HIGH CARDIOVASCULAR RISK Normal [facility] Comment on above: Performed By: #### B MP, BNP, LIPID #### [facility] [address] [address] [address] Silva Burnett LDL CALC NORMAL SEE BELOW Normal [facility] Comment on above: Result Comment: <100 mg/dl OPTIMAL 100 - 129 mg/dl NEAR OR ABOVE OPTIMAL 130 - 159 mg/dl BORDERLINE HIGH 160 - 189 mg/dl HIGH >190 mg/dl VERY HIGH Performed By: #### B MP, BNP, LIPID #### [facility] [address] [place] [address] Dr. Silva Burnett Triglyceride [Mass/Vol] 68 mg/dL Normal <=150 [facility] Comment on above: Performed By: #### B MP, BNP, LIPID #### [facility] [address] [place] [address] Dr. Silva Burnett VLDL CALC 13.6 mg/dL Normal [facility] Comment on above: Performed By: #### B MP, BNP, LIPID #### [facility] [address] [place] [address] Dr. Silva Burnett PROF CHEM 8 (BAS METB)on Anion gap [Moles/Vol] 10.2 mmol/L Normal [facility] Comment on above: Performed By: #### B MP, BNP, LIPID #### [facility] [address] [place] [address] Dr. Silva Burnett Calcium [Mass/Vol] 9.3 mg/dL Normal 8.5-10.1 [facility] Comment on above: Performed By: #### B MP, BNP, LIPID #### [facility] [address] [place] [address] Dr. Silva Burnett Chloride [Moles/Vol] 102 mmol/L Normal 98-107 [facility] Comment on above: Performed By: #### B MP, BNP, LIPID #### [facility] [address] [place] [address] Dr. Silva Burnett CO2 [Moles/Vol] 29.7 mmol/L Normal 21.0-32.0 [facility] Comment on above: Performed By: #### B MP, BNP, LIPID #### [facility] [address] [place] [address] Dr. Silva Burnett Creatinine [Mass/Vol] 1.68 mg/dL Critically high 0.70-1.30 [facility] Comment on above: Performed By: #### B MP, BNP, LIPID #### [facility] Laboratory [address] [address] [address] Silva Burnett EGFR-AF SAUDI ARABIAN 48 mL/min/1.73m2 Critically low >=60 [facility] Comment on above: Performed By: #### B MP, BNP, LIPID #### [facility] [address] [address] [address] Silva Burnett EGFR-NON AF SAUDI ARABIAN 40 mL/min/1.73m2 Critically low >=60 [facility] Comment on above: Performed By: #### B MP, BNP, LIPID #### [facility] [address] [address] [address] Silva Burnett Glucose [Mass/Vol] 97 mg/dL Normal 74-106 [facility] Comment on above: Performed By: #### B MP, BNP, LIPID #### [facility] [address] [place] [address] Dr. Silva Burnett Potassium [Moles/Vol] 3.9 mmol/L Normal 3.5-5.1 [facility] Comment on above: Performed By: #### B MP, BNP, LIPID #### [facility] [address] [place] [address] Dr. Silva Burnett Sodium [Moles/Vol] 138 mmol/L Normal 136-145 [facility] Comment on above: Performed By: #### B MP, BNP, LIPID #### [facility] [address] [place] [address] Dr. Silva Burnett Urea nitrogen [Mass/Vol] 28.0 mg/dL Critically high 7.0-18.0 [facility] Comment on above: Performed By: #### B MP, BNP, LIPID #### [facility] [address] [place] [address] Dr. Silva Burnett Urea nitrogen/Creatinine [Mass ratio] 16.7 mg/mg Normal [facility] Comment on above: Performed By: #### B MP, BNP, LIPID #### [facility] [address] [place] [address] Dr. Silva Burnett FREE T3on 07-18-2022 FREE T3 3.48 pg/mlL Normal 2.18-3.98 [facility] Comment on above: Performed By: #### V ITAD #### [facility] [address] [place] [address] Dr. Silva Burnett FREE T4on 07-18-2022 Free T4 [Mass/Vol] 0.76 ng/dL Normal 0.76-1.46 [facility] Comment on above: Performed By: #### F T4 #### [facility] [address] [address] [address] Silva Burnett TSHon 07-18-2022 TSH 0.074 uIU/mL Critically low 0.358-3.740 [facility] Comment on above: Performed By: #### V ITAD #### [facility] [address] [place] [address] Dr. Silva Burnett TESTOSTERONE, FREE,DIRECT, T OTALon 07-02-2022 Free Testosterone(Direct ) 1.2 pg/mL Critically low 6.6-18.1 [facility] Comment on above: Result Comment: Perf ormed at: BN Performed By: #### B MP, BNP #### [facility] [address] [place] [address] Dr. Silva Burnett Testosterone [Mass/Vol] 103 ng/dL Critically low 264-916 [facility] Comment on above: Result Comment: Adul t male reference interval is based on a population of healthy nonobese males (BMI <30) between 19 and 39 years old. Keisha, et.al. JCEM 2017,102;3689-4852. PMID: [id number]. Performed at: CB Performed By: #### B MP, BNP #### [facility] [address] [place] [address] Dr. Silva Burnett CORTISOLon 06-29-2022 Cortisol 9.8 ug/dL Normal [facility] Comment on above: Result Comment: Dale isol AM 6.2 - 19.4 Cortisol PM 2.3 - 11.9 Performed By: #### B MP, BNP #### [facility] [address] [place] [address] Dr. Silva Burnett BNPon 06-27-2022 Natriuretic peptide B (Bld) [Mass/Vol] 5384.0 pg/mL Critically high <=1,800.0 [facility] Comment on above: Performed By: #### B MP, BNP #### [facility] [address] [place] [address] Dr. Silva Burnett CBC AUTO DIFFon 06-27-2022 BASO # 0.0 103/ul Normal 0.0-0.1 [facility] Comment on above: Performed By: #### B MP, BNP #### [facility] [address] [place] [address] Dr. Silva Burnett Basophils/100 WBC (Bld) 0.6 % Normal 0.2-2.0 [facility] Comment on above: Performed By: #### B MP, BNP #### [facility] [address] [place] [address] Dr. Silva Burnett EO # 0.4 103/ul Normal 0.0-0.7 [facility] Comment on above: Performed By: #### B MP, BNP #### [facility] [address] [place] [address] Dr. Silva Burnett Eosinophils/100 WBC (Bld) 8.0 % Critically high 0.9-7.0 [facility] Comment on above: Performed By: #### B MP, BNP #### [facility] [address] [place] [address] Dr. Silva Burnett Erythrocyte distribution width (RBC) [Ratio] 15.3 % Critically high 11.0-15.0 [facility] Comment on above: Performed By: #### B MP, BNP #### [facility] [address] [place] [address] Dr. Silva Burnett Hematocrit (Bld) [Volume fraction] 41.0 % Critically low 42.0-54.0 [facility] Comment on above: Performed By: #### B MP, BNP #### [facility] [address] [place] [address] Dr. Silva Burnett Hemoglobin (Bld) [Mass/Vol] 12.8 g/dL Critically low 14.0-18.0 [facility] Comment on above: Performed By: #### B MP, BNP #### [facility] [address] [place] [address] Dr. Silva Burnett IG # 0.02 10e3/ul Normal 0.00-0.03 [facility] Comment on above: Performed By: #### B MP, BNP #### [facility] [address] [place] [address] Dr. Silva Burnett IG % 0.4 % Normal 0.0-0.5 [facility] Comment on above: Performed By: #### B MP, BNP #### [facility] [address] [place] [address] Dr. Silva Burnett LYMPH # 1.3 103/ul Normal 1.2-3.8 [facility] Comment on above: Performed By: #### B MP, BNP #### [facility] [address] [place] [address] Dr. Silva Burnett Lymphocytes/100 WBC (Bld) 25.8 % Normal 20.5-60.0 [facility] Comment on above: Performed By: #### B MP, BNP #### [facility] [address] [place] [address] Dr. Silva Burnett MANUAL DIFF REQ NO Normal [facility] Comment on above: Performed By: #### B MP, BNP #### [facility] [address] [place] [address] Dr. Silva Burnett MCH (RBC) [Entitic mass] 28.9 pg Normal 25.9-34.0 [facility] Comment on above: Performed By: #### B MP, BNP #### [facility] [address] [place] [address] Dr. Silva Burnett MCHC (RBC) [Mass/Vol] 31.2 g/dL Normal 29.9-35.2 [facility] Comment on above: Performed By: #### B MP, BNP #### [facility] [address] [place] [address] Dr. Silva Burnett MCV (RBC) [Entitic vol] 92.6 fL Normal 80.0-94.0 [facility] Comment on above: Performed By: #### B MP, BNP #### [facility] [address] [address] [address] Silva Burnett MONO # 0.6 103/ul Normal 0.3-0.8 [facility] Comment on above: Performed By: #### B MP, BNP #### [facility] [address] [address] [address] Silva Burnett Monocytes/100 WBC (Bld) 11.1 % Normal 1.7-12.0 [facility] Comment on above: Performed By: #### B MP, BNP #### [facility] [address] [address] [address] Silva Burnett NEUT # 2.8 103/ul Normal 1.4-6.5 [facility] Comment on above: Performed By: #### B MP, BNP #### [facility] [address] [place] [address] Dr. Silva Burnett Neutrophils/100 WBC (Bld) 54.1 % Normal 43.0-75.0 [facility] Comment on above: Performed By: #### B MP, BNP #### [facility] [address] [address] [address] Silva Burnett Platelet mean volume (Bld) [Entitic vol] 10.0 fL Normal 9.5-13.5 [facility] Comment on above: Performed By: #### B MP, BNP #### [facility] [address] [place] [address] Dr. Silva Burnett PLT 144 103/ul Critically low 150-450 [facility] Comment on above: Performed By: #### B MP, BNP #### [facility] [address] [place] [address] Dr. Silva Burnett RBC 4.43 106/ul Critically low 4.70-6.[address] [facility] Comment on above: Performed By: #### B MP, BNP #### [facility] [address] [place] [address] Dr. Silva Burnett WBC 5.1 103/ul Normal 4.0-11.0 [facility] Comment on above: Performed By: #### B MP, BNP #### [facility] [address] [place] [address] Dr. Silva Burnett PROF CHEM 8 (BAS METB)on Anion gap [Moles/Vol] 10.2 mmol/L Normal [facility] Comment on above: Performed By: #### B MP, BNP #### [facility] [address] [place] [address] Dr. Silva Burnett Calcium [Mass/Vol] 8.9 mg/dL Normal 8.5-10.1 [facility] Comment on above: Performed By: #### B MP, BNP #### [facility] [address] [place] [address] Dr. Silva Burnett Chloride [Moles/Vol] 104 mmol/L Normal 98-107 [facility] Comment on above: Performed By: #### B MP, BNP #### [facility] [address] [place] [address] Dr. Silva Burnett CO2 [Moles/Vol] 27.1 mmol/L Normal 21.0-32.0 [facility] Comment on above: Performed By: #### B MP, BNP #### [facility] [address] [place] [address] Dr. Silva Burnett Creatinine [Mass/Vol] 1.61 mg/dL Critically high 0.70-1.30 [facility] Comment on above: Performed By: #### B MP, BNP #### [facility] [address] [place] [address] Dr. Silva Burnett EGFR-AF SAUDI ARABIAN 50 mL/min/1.73m2 Critically low >=60 [facility] Comment on above: Performed By: #### B MP, BNP #### [facility] [address] [place] [address] Dr. Silva Burnett EGFR-NON AF SAUDI ARABIAN 41 mL/min/1.73m2 Critically low >=60 [facility] Comment on above: Performed By: #### B MP, BNP #### [facility] [address] [place] [address] Dr. Silva Burnett Glucose [Mass/Vol] 89 mg/dL Normal 74-106 [facility] Comment on above: Performed By: #### B MP, BNP #### [facility] [address] [place] [address] Dr. Silva Burnett Potassium [Moles/Vol] 4.3 mmol/L Normal 3.5-5.1 [facility] Comment on above: Performed By: #### B MP, BNP #### [facility] [address] [place] [address] Dr. Silva Burnett Sodium [Moles/Vol] 137 mmol/L Normal 136-145 [facility] Comment on above: Performed By: #### B MARQUEZ, BNP #### [facility] [address] [place] [address] Dr. Silva Burnett Urea nitrogen [Mass/Vol] 28.0 mg/dL Critically high 7.0-18.0 [facility] Comment on above: Performed By: #### B MARQUEZ, BNP #### [facility] [address] [place] [address] Dr. Silva Burnett Urea nitrogen/Creatinine [Mass ratio] 17.4 mg/mg Normal [facility] Comment on above: Performed By: #### B MARQUEZ, BNP #### [facility] [address] [place] [address] Dr. Silva Burnett VITAMIN D 25 OHon 06-27-2022 VIT D 25-OH 85.2 ng/mL Normal [facility] Comment on above: Performed By: #### V ITAD #### [facility] [address] [place] [address] Dr. Silva Burnett VIT D RANGES SEE BELOW Normal [facility] Comment on above: Result Comment: <20 ng/mL Vit D deficient 20 - <30 ng/mL Vit D insufficient 30 - 100 ng/mL Vit D sufficient >100 ng/mL Potential Toxicity Performed By: #### V ITAD #### [facility] [address] [place] [address] Dr. Silva Burnett CREATININEon 06-14-2022 Creatinine [Mass/Vol] 1.71 mg/dL Critically high 0.70-1.30 [facility] Comment on above: Performed By: #### B MP, BNP #### [facility] [address], [place] [address] Dr. Silva Burnett EGFR-AF SAUDI ARABIAN 47 mL/min/1.73m2 Critically low >=60 [facility] Comment on above: Performed By: #### B MP, BNP #### [facility] [address], [place] [address] Dr. Silva Burnett EGFR-NON AF SAUDI ARABIAN 39 mL/min/1.73m2 Critically low >=60 [facility] Comment on above: Performed By: #### B MP, BNP #### [facility] [address], [place] [address] Dr. Silva Burnett CTA NECK WO W [...] AYANA FERNANDEZ Date: 2022-06-14 16:39 Normal [facility] BASIC METABOLIC PANELon 09-0 Calcium [Mass/Vol] 8.8 mg/dL Normal 8.6-10.3 [facility] Comment on above: Order Comment: No: D o not add to previous draw Performed By: #### 2 5508, 04760, 49477, 84904, 26901, 07835 #### [facility] [address] [place] [address], [facility] Chloride [Moles/Vol] 103 mmol/L Normal 98-107 [facility] Comment on above: Order Comment: No: D o not add to previous draw Performed By: #### 2 5508, 15046, 59799, 16240, 32359, 08068 #### [facility] [address] [place] [address], [facility] CO2 [Moles/Vol] 28 mmol/L Normal 21-31 [facility] Comment on above: Order Comment: No: D o not add to previous draw Performed By: #### 2 5508, 37023, 45267, 79958, 91305, 50501 #### [facility] [address] [place] [address], [facility] Creatinine [Mass/Vol] 1.47 mg/dL High 0.70-1.30 [facility] Comment on above: Order Comment: No: D o not add to previous draw Performed By: #### 2 5508, 77172, 04406, 01970, 21391, 94824 #### [facility] [address] [place] [address], [facility] EGFR 48 ml/min/1.73sq m Abnormal >60 [facility] Comment on above: Order Comment: No: D o not add to previous draw Result Comment: [facility]'s estimated glomerular filtration rate (eGFR) will [...] of individuals. Performed By: #### 2 5508, 27403, 78231, 09115, 53221, 45043 #### [facility] [address] [place] [address], [place] Glucose [Mass/Vol] 110 mg/dL High 70-100 [facility] Comment on above: Order Comment: No: D o not add to previous draw Performed By: #### 2 5508, 27330, 45203, 63905, 93746, 21384 #### [facility] [address] [place] [address], [facility] Potassium [Moles/Vol] 4.3 mmol/L Normal 3.5-5.1 [facility] Comment on above: Order Comment: No: D o not add to previous draw Performed By: #### 2 5508, 27857, 66852, 65104, 75346, 49736 #### [facility] [address] [place] [address], [place] Sodium [Moles/Vol] 136 mmol/L Normal 136-145 [facility] Comment on above: Order Comment: No: D o not add to previous draw Performed By: #### 2 5508, 23094, 39179, 30551, 50611, 95544 #### [facility] [address] [place] [address], [place] Urea nitrogen [Mass/Vol] 35 mg/dL High 7-25 [facility] Comment on above: Order Comment: No: D o not add to previous draw Performed By: #### 2 5508, 44344, 54529, 26579, 77187, 98889 #### [facility] [address] [place] [address], [place] MAGNESIUM BLOODon 05-23-2022 Magnesium [Mass/Vol] 2.2 mg/dL Normal 1.9-2.7 [facility] Comment on above: Order Comment: No: D o not add to previous draw Performed By: #### 2 5508, 24246, 86852, 31704, 16010, 78994 #### [facility] [address] [place] [address], [facility] APTTon 05-22-2022 aPTT Coag (Bld) [Time] 28.0 s Normal 25.0-35.0 [facility] Comment on above: Order Comment: No: [...] THIS PURPOSE. Performed By: #### 2 5508, 35205, 11559, 93825, 97935, 65152 #### [facility] [address] [place] [address], [facility] BASIC METABOLIC PANELon Calcium [Mass/Vol] 9.0 mg/dL Normal 8.6-10.3 [facility] Comment on above: Order Comment: No: D o not add to previous draw Performed By: #### 2 5508, 38609, 92287, 47812, 21641, 28970 #### [facility] [address] [place] [address], [facility] Chloride [Moles/Vol] 101 mmol/L Normal 98-107 [facility] Comment on above: Order Comment: No: D o not add to previous draw Performed By: #### 2 5508, 88261, 64933, 40655, 27376, 75939 #### [facility] [address] [place] [address], [facility] CO2 [Moles/Vol] 29 mmol/L Normal 21-31 [facility] Comment on above: Order Comment: No: D o not add to previous draw Performed By: #### 2 5508, 24201, 85323, 96421, 17786, 30874 #### [facility] [address] [place] [address], [facility] Creatinine [Mass/Vol] 1.67 mg/dL High 0.70-1.30 [facility] Comment on above: Order Comment: No: D o not add to previous draw Performed By: #### 2 5508, 45332, 77412, 58755, 52169, 78567 #### [facility] [address] [place] [address], [facility] EGFR 41 ml/min/1.73sq m Abnormal >60 [facility] Comment on above: Order Comment: No: D o not add to previous draw Result Comment: [facility]'s estimated glomerular filtration rate (eGFR) will [...] of individuals. Performed By: #### 2 5508, 63248, 84674, 95332, 78428, 45297 #### [facility] [address] [place] [address], [facility] Glucose [Mass/Vol] 94 mg/dL Normal 70-100 [facility] Comment on above: Order Comment: No: D o not add to previous draw Performed By: #### 2 5508, 30596, 85763, 38822, 72310, 10380 #### [facility] [address] [place] [address], [place] Potassium [Moles/Vol] 4.8 mmol/L Normal 3.5-5.1 [facility] Comment on above: Order Comment: No: D o not add to previous draw Performed By: #### 2 5508, 00708, 47397, 28828, 57921, 94727 #### [facility] [address] Sodium [Moles/Vol] 136 mmol/L Normal 136-145 [facility] Comment on above: Order Comment: No: D o not add to previous draw Performed By: #### 2 5508, 64845, 70891, 83257, 57075, 27042 #### [facility] [address] Urea nitrogen [Mass/Vol] 39 mg/dL High 7-25 [facility] Comment on above: Order Comment: No: D o not add to previous draw Performed By: #### 2 5508, 19523, 46912, 43196, 55325, 43187 #### [facility] [address] MAGNESIUM BLOODon 05-22-2022 Magnesium [Mass/Vol] 1.8 mg/dL Low 1.9-2.7 [facility] Comment on above: Order Comment: No: D o not add to previous draw Performed By: #### 2 5508, 10781, 83990, 28924, 99315, 66180 #### [facility] [address] APTTon 05-21-2022 aPTT Coag (Bld) [Time] 30.8 s Normal 25.0-35.0 [facility] Comment on above: Order Comment: No: [...] THIS PURPOSE. Performed By: #### 2 5508, 41962, 12172, 89514, 25145, 61752 #### [facility] [address] [place] [address], [facility] BASIC METABOLIC PANELon 09-0 -2021 Calcium [Mass/Vol] 8.8 mg/dL Normal 8.6-10.3 [facility] Comment on above: Order Comment: No: D o not add to previous draw Performed By: #### 2 5508, 08228, 64866, 71799, 19947, 98949 #### [facility] [address] [place] [address], [place] Chloride [Moles/Vol] 103 mmol/L Normal 98-107 [facility] Comment on above: Order Comment: No: D o not add to previous draw Performed By: #### 2 5508, 58234, 67492, 00651, 32294, 11104 #### [facility] [address] [place] [address], [facility] CO2 [Moles/Vol] 26 mmol/L Normal 21-31 [facility] Comment on above: Order Comment: No: D o not add to previous draw Performed By: #### 2 5508, 57238, 61618, 04954, 16434, 76351 #### [facility] [address] [place] [address], [place] Creatinine [Mass/Vol] 1.47 mg/dL High 0.70-1.30 [facility] Comment on above: Order Comment: No: D o not add to previous draw Performed By: #### 2 5508, 83188, 74909, 51584, 19231, 57800 #### [facility] [address] [place] [address], [place] EGFR 48 ml/min/1.73sq m Abnormal >60 [facility] Comment on above: Order Comment: No: D o not add to previous draw Result Comment: [facility]'s estimated glomerular filtration rate (eGFR) will [...] of individuals. Performed By: #### 2 5508, 10064, 37194, 57513, 01393, 11320 #### [facility] [address] [place] [address], [place] Glucose [Mass/Vol] 88 mg/dL Normal 70-100 [facility] Comment on above: Order Comment: No: D o not add to previous draw Performed By: #### 2 5508, 20746, 87405, 79763, 83248, 89610 #### [facility] [address] [place] [address], [place] Potassium [Moles/Vol] 3.9 mmol/L Normal 3.5-5.1 [facility] Comment on above: Order Comment: No: D o not add to previous draw Performed By: #### 2 5508, 30990, 00979, 38511, 34116, 22823 #### [facility] [address] [place] [address], [place] Sodium [Moles/Vol] 137 mmol/L Normal 136-145 [facility] Comment on above: Order Comment: No: D o not add to previous draw Performed By: #### 2 5508, 85981, 47551, 10766, 91635, 33813 #### [facility] [address] [place] [address], [place] Urea nitrogen [Mass/Vol] 45 mg/dL High 7-25 [facility] Comment on above: Order Comment: No: D o not add to previous draw Performed By: #### 2 5508, 39276, 55169, 15188, 82214, 17158 #### [facility] [address] [place] [id number], [facility] CBC COMPLETE BLOOD COUNTon 05-21-2022 Erythrocyte distribution width (RBC) [Ratio] 14.4 % Normal 11.5-15.0 [facility] Comment on above: Order Comment: No: D o not add to previous draw Performed By: #### 2 5508, 93948, 49584, 52948, 01347, 48336 #### [facility] [address] [place] [address], [facility] Hematocrit (Bld) [Volume fraction] 40.8 % Normal 39.0-50.0 [facility] Comment on above: Order Comment: No: D o not add to previous draw Performed By: #### 2 5508, 25708, 07261, 34647, 72080, 54777 #### [facility] [address] [place] [address], [facility] Hemoglobin (Bld) [Mass/Vol] 13.3 g/dL Normal 13.0-17.0 [facility] Comment on above: Order Comment: No: D o not add to previous draw Performed By: #### 2 5508, 79153, 41157, 39783, 18970, 24834 #### [facility] [address] [place] [address], [facility] MCH (RBC) [Entitic mass] 28.4 pg Normal 27.0-33.0 [facility] Comment on above: Order Comment: No: D o not add to previous draw Performed By: #### 2 5508, 57110, 19497, 38908, 22671, 42959 #### [facility] [address] [place] [address], [facility] MCHC (RBC) [Mass/Vol] 32.6 g/dL Normal 32.0-35.0 [facility] Comment on above: Order Comment: No: D o not add to previous draw Performed By: #### 2 5508, 12440, 11858, 30927, 68324, 76639 #### [facility] [address] [place] [address], [facility] MCV (RBC) [Entitic vol] 87.0 fL Normal 82.0-98.0 [facility] Comment on above: Order Comment: No: D o not add to previous draw Performed By: #### 2 5508, 29378, 32916, 82733, 55620, 97868 #### [facility] [address] [place] [address], [facility] Nucleated RBC/100 WBC (Bld) [Ratio] 0 % Normal 0-0 [facility] Comment on above: Order Comment: No: D o not add to previous draw Performed By: #### 2 5508, 93983, 06877, 53765, 20167, 57980 #### [facility] [address] [place] [address], [facility] PLAT CNT 157 10*3/uL Normal 150-400 [facility] Comment on above: Order Comment: No: D o not add to previous draw Performed By: #### 2 5508, 49237, 09243, 37184, 46561, 18876 #### [facility] [address] [place] [address], [facility] RBC (Bld) [#/Vol] 4.69 10*6/uL Normal 4.20-5.70 [facility] Comment on above: Order Comment: No: D o not add to previous draw Performed By: #### 2 5508, 81158, 30831, 84497, 50647, 82314 #### [facility] [address] [place] [address], [facility] WBC (Bld) [#/Vol] 6.19 10*3/uL Normal 4.00-10.60 [facility] Comment on above: Order Comment: No: D o not add to previous draw Performed By: #### 2 5508, 36741, 97897, 09598, 74021, 35613 #### [facility] [address] [place] [address], [facility] MAGNESIUM BLOODon 05-21-2022 Magnesium [Mass/Vol] 1.9 mg/dL Normal 1.9-2.7 [facility] Comment on above: Order Comment: No: D o not add to previous draw Performed By: #### 2 5508, 48788, 43985, 01204, 69383, 16885 #### [facility] [address] [place] [address], [facility] APTTon 05-20-2022 aPTT Coag (Bld) [Time] 28.4 s Normal 25.0-35.0 [facility] Comment on above: Order Comment: No: [...] THIS PURPOSE. Performed By: #### 2 5508, 41331, 27404, 87661, 62128, 76175 #### [facility] [address] [place] [address], [facility] BASIC METABOLIC PANELon Calcium [Mass/Vol] 9.0 mg/dL Normal 8.6-10.3 [facility] Comment on above: Order Comment: No: D o not add to previous draw Performed By: #### 1 0070, 73217, 79297 #### [facility] [address] [place] [address], [facility] Chloride [Moles/Vol] 105 mmol/L Normal 98-107 [facility] Comment on above: Order Comment: No: D o not add to previous draw Performed By: #### 1 0070, 56766, 36847 #### [facility] [address] [place] [address], [facility] CO2 [Moles/Vol] 26 mmol/L Normal 21-31 [facility] Comment on above: Order Comment: No: D o not add to previous draw Performed By: #### 1 0070, 39313, 69243 #### [facility] [address] [place] [address], [facility] Creatinine [Mass/Vol] 1.42 mg/dL High 0.70-1.30 [facility] Comment on above: Order Comment: No: D o not add to previous draw Performed By: #### 1 0070, , 80878 #### [facility] [address] [facility] [place] [address], [facility] EGFR 50 ml/min/1.73sq m Abnormal >60 [facility] Comment on above: Order Comment: No: D o not add to previous draw Result Comment: [facility]'s estimated glomerular filtration rate (eGFR) will [...] of individuals. Performed By: #### 1 0070, 12011, 72405 #### [facility] [address] [facility] [place] [address], [facility] Glucose [Mass/Vol] 107 mg/dL High 70-100 [facility] Comment on above: Order Comment: No: D o not add to previous draw Performed By: #### 1 0070, 57802, 82614 #### [facility] [address] [place] [address], [facility] Potassium [Moles/Vol] 3.9 mmol/L Normal 3.5-5.1 [facility] Comment on above: Order Comment: No: D o not add to previous draw Performed By: #### 1 0070, 35647, 47957 #### [facility] [address] [place] [address], [facility] Sodium [Moles/Vol] 139 mmol/L Normal 136-145 [facility] Comment on above: Order Comment: No: D o not add to previous draw Performed By: #### 1 0070, 34971, 66771 #### [facility] [address] [place] [address], [facility] Urea nitrogen [Mass/Vol] 50 mg/dL High 7-25 [facility] Comment on above: Order Comment: No: D o not add to previous draw Performed By: #### 1 0070, 66465, 55859 #### [facility] [address] CBC COMPLETE BLOOD COUNTon 0 - Erythrocyte distribution width (RBC) [Ratio] 14.3 % Normal 11.5-15.0 [facility] Comment on above: Order Comment: No: D o not add to previous draw Performed By: #### 2 5508, 37799, 93330, 55811, 08537, 35912 #### [facility] [address] [place] [address], [facility] Hematocrit (Bld) [Volume fraction] 44.1 % Normal 39.0-50.0 [facility] Comment on above: Order Comment: No: D o not add to previous draw Performed By: #### 2 5508, 96546, 89453, 72391, 70466, 27809 #### [facility] [address] [place] [address], [facility] Hemoglobin (Bld) [Mass/Vol] 14.5 g/dL Normal 13.0-17.0 [facility] Comment on above: Order Comment: No: D o not add to previous draw Performed By: #### 2 5508, 17734, 73712, 26634, 59005, 29108 #### [facility] [address] [place] [address], [facility] IMM PLATELET FRAC 5.4 % Normal 0.8-6.3 [facility] Comment on above: Order Comment: No: D o not add to previous draw Performed By: #### 2 5508, 41023, 73146, 02963, 90178, 32348 #### [facility] [address] [place] [id number], [facility] MCH (RBC) [Entitic mass] 29.1 pg Normal 27.0-33.0 [facility] Comment on above: Order Comment: No: D o not add to previous draw Performed By: #### 2 5508, 43303, 94925, 03210, 49729, 73297 #### [facility] [address] [place] [address], [facility] MCHC (RBC) [Mass/Vol] 32.9 g/dL Normal 32.0-35.0 [facility] Comment on above: Order Comment: No: D o not add to previous draw Performed By: #### 2 5508, 13845, 74853, 48209, 80036, 56943 #### [facility] [address] [place] [address], [facility] MCV (RBC) [Entitic vol] 88.6 fL Normal 82.0-98.0 [facility] Comment on above: Order Comment: No: D o not add to previous draw Performed By: #### 2 5508, 30194, 42247, 99402, 70874, 74431 #### [facility] [address] [place] [id number], [facility] Nucleated RBC/100 WBC (Bld) [Ratio] 0 % Normal 0-0 [facility] Comment on above: Order Comment: No: D o not add to previous draw Performed By: #### 2 5508, 03250, 10495, 47714, 68079, 24323 #### [facility] [address] [place] [address], [facility] PLAT CNT 138 10*3/uL Low 150-400 [facility] Comment on above: Order Comment: No: D o not add to previous draw Performed By: #### 2 5508, 05112, 29579, 90084, 18933, 54044 #### [facility] [address] [place] [address], [facility] RBC (Bld) [#/Vol] 4.98 10*6/uL Normal 4.20-5.70 [facility] Comment on above: Order Comment: No: D o not add to previous draw Performed By: #### 2 5508, 60462, 43343, 88495, 28193, 26825 #### [facility] [address] [place] [address], [facility] WBC (Bld) [#/Vol] 5.80 10*3/uL Normal 4.00-10.60 [facility] Comment on above: Order Comment: No: D o not add to previous draw Performed By: #### 2 5508, 54553, 40583, 25769, 75513, 69507 #### [facility] [address] [place] [address], [facility] MAGNESIUM BLOODon 05-20-2022 Magnesium [Mass/Vol] 2.0 mg/dL Normal 1.9-2.7 [facility] Comment on above: Order Comment: No: D o not add to previous draw Performed By: #### 1 0070, 54703, 27770 #### [facility] [address] [place] [address], [facility] PHOSPHORUS BLOODon Phosphate [Mass/Vol] 3.5 mg/dL Normal 2.5-5.0 [facility] Comment on above: Order Comment: No: D o not add to previous draw Performed By: #### 1 0070, 02562, 97490 #### [facility] [address] APTTon 05-19-2022 aPTT Coag (Bld) [Time] 30.3 s Normal 25.0-35.0 [facility] Comment on above: Order Comment: No: [...] THIS PURPOSE. Performed By: #### 2 5508, 65507, 86056, 33395, 27751, 48646 #### [facility] [address] BASIC METABOLIC PANELon Calcium [Mass/Vol] 8.5 mg/dL Low 8.6-10.3 [facility] Comment on above: Order Comment: No: D o not add to previous draw Performed By: #### 2 5508, 16411, 37419, 64998, 77538, 19931 #### [facility] [address] [place] [address], [facility] Chloride [Moles/Vol] 104 mmol/L Normal 98-107 [facility] Comment on above: Order Comment: No: D o not add to previous draw Performed By: #### 2 5508, 04075, 84691, 04937, 38798, 26302 #### [facility] [address] [place] [id number], [facility] CO2 [Moles/Vol] 24 mmol/L Normal 21-31 [facility] Comment on above: Order Comment: No: D o not add to previous draw Performed By: #### 2 5508, 52060, 23156, 70689, 31146, 30014 #### [facility] [address] [place] [id number], [facility] Creatinine [Mass/Vol] 2.02 mg/dL High 0.70-1.30 [facility] Comment on above: Order Comment: No: D o not add to previous draw Performed By: #### 2 5508, 31341, 95002, 32817, 27978, 08673 #### [facility] [address] [place] [address], [facility] EGFR 33 ml/min/1.73sq m Abnormal >60 [facility] Comment on above: Order Comment: No: D o not add to previous draw Result Comment: [facility]'s estimated glomerular filtration rate (eGFR) will [...] of individuals. Performed By: #### 2 5508, 78087, 64561, 09033, 13008, 03712 #### [facility] [address] [place] [address], [facility] Glucose [Mass/Vol] 121 mg/dL High 70-100 [facility] Comment on above: Order Comment: No: D o not add to previous draw Performed By: #### 2 5508, 16354, 10538, 28144, 12235, 18169 #### [facility] [address] [place] [address], [facility] Potassium [Moles/Vol] 3.1 mmol/L Low 3.5-5.1 [facility] Comment on above: Order Comment: No: D o not add to previous draw Performed By: #### 2 5508, 51046, 05727, 50082, 89769, 29703 #### [facility] [address] [place] [address], [place] Sodium [Moles/Vol] 137 mmol/L Normal 136-145 [facility] Comment on above: Order Comment: No: D o not add to previous draw Performed By: #### 2 5508, 58589, 18618, 41256, 30873, 62023 #### [facility] [address] [place] [address], [facility] Urea nitrogen [Mass/Vol] 61 mg/dL High 7-25 [facility] Comment on above: Order Comment: No: D o not add to previous draw Performed By: #### 2 5508, 35807, 16487, 85991, 85635, 04090 #### [facility] [address] [place] [id number], [facility] CBC COMPLETE BLOOD COUNTon 0 05-19-2022 Erythrocyte distribution width (RBC) [Ratio] 14.2 % Normal 11.5-15.0 [facility] Comment on above: Order Comment: No: D o not add to previous draw Performed By: #### 2 5508, 83035, 14204, 12566, 11048, 72362 #### [facility] [address] [place] [address], [facility] Hematocrit (Bld) [Volume fraction] 41.1 % Normal 39.0-50.0 [facility] Comment on above: Order Comment: No: D o not add to previous draw Performed By: #### 2 5508, 91435, 32771, 99278, 61107, 63981 #### [facility] [address] [place] [address], [facility] Hemoglobin (Bld) [Mass/Vol] 13.8 g/dL Normal 13.0-17.0 [facility] Comment on above: Order Comment: No: D o not add to previous draw Performed By: #### 2 5508, 91141, 42579, 00769, 40493, 94657 #### [facility] [address] [place] [address], [place] IMM PLATELET FRAC 4.8 % Normal 0.8-6.3 [facility] Comment on above: Order Comment: No: D o not add to previous draw Performed By: #### 2 5508, 02797, 28014, 99340, 68852, 39006 #### [facility] [address] [place] [address], [facility] MCH (RBC) [Entitic mass] 29.0 pg Normal 27.0-33.0 [facility] Comment on above: Order Comment: No: D o not add to previous draw Performed By: #### 2 5508, 46698, 59185, 03426, 09530, 41429 #### [facility] [address] [facility] [place] [address], [facility] MCHC (RBC) [Mass/Vol] 33.6 g/dL Normal 32.0-35.0 [facility] Comment on above: Order Comment: No: D o not add to previous draw Performed By: #### 2 5508, 99008, 73992, 46130, 37657, 65665 #### [facility] [address] [facility] [place] [address], [facility] MCV (RBC) [Entitic vol] 86.3 fL Normal 82.0-98.0 [facility] Comment on above: Order Comment: No: D o not add to previous draw Performed By: #### 2 5508, 27698, 83465, 49632, 05122, 29126 #### [facility] [address] [facility] [place] [address], [facility] Nucleated RBC/100 WBC (Bld) [Ratio] 0 % Normal 0-0 [facility] Comment on above: Order Comment: No: D o not add to previous draw Performed By: #### 2 5508, 96206, 18582, 07458, 12131, 34763 #### [facility] [address] [place] [address], [facility] PLAT CNT 116 10*3/uL Low 150-400 [facility] Comment on above: Order Comment: No: D o not add to previous draw Performed By: #### 2 5508, 73285, 24048, 41106, 23374, 45018 #### [facility] [address] [place] [address], [facility] RBC (Bld) [#/Vol] 4.76 10*6/uL Normal 4.20-5.70 [facility] Comment on above: Order Comment: No: D o not add to previous draw Performed By: #### 2 5508, 35014, 04944, 05027, 81304, 38330 #### [facility] [address] [facility] [place] [address], [facility] WBC (Bld) [#/Vol] 5.16 10*3/uL Normal 4.00-10.60 [facility] Comment on above: Order Comment: No: D o not add to previous draw Performed By: #### 2 5508, 91068, 40495, 50779, 59194, 46314 #### [facility] [address] [facility] [place] [address], [facility] Cardiovascular Lab Reporton 05-19-2022 Cardiovascular Lab Report [facility] Patient Name: Paco [facility] [place] MR #: [id number] Department of Physician: Vic Nunes M.D. Division of Service Date: 05/18/2022 Cardiology Birthdate: 1940 Adult Cardiovascular Room #: [id number] [facility] [address] [place] [address] Cardiovascular Laboratory Report FINAL IMPRESSIONS: 1. 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 2. Two bypass grafts patent; left internal mammary artery graft to the left anterior descending and saphenous vein graft to the obtuse marginal. 3. Robust [id number] collaterals. 4. Patent left subclavian artery. RECOMMENDATIONS: [...] internal mammary artery graft, placement of a 6-Stateless MynxGrip closure device. METHODS: After risks, benefits, and alternatives were explained, written informed consent was obtained. The patient was prepped and draped in usual sterile fashion over both groins. Using 1% lidocaine solution, local infiltration anesthesia was achieved. Using a modified Seldinger technique and a micropuncture kit and on the ultrasound guidance access to the right common femoral artery was obtained. A 6-Stateless 11 cm sheath was inserted without difficulty. [...] conclude the procedure. All catheters removed. A 6-Stateless MynxGrip closure device was deployed per protocol [...] by: Sonja Hall M.D. 05/24/2022 01:00 P Sonaj Hall M.D. Date Dict: 05/18/2022/01:19 Nikhil/Sonja Hall M.D. Date Trans: 05/19/2022 05:44 A/radha [id number] cc: Samm Thompson M.D. [address] [address] Normal [facility] MAGNESIUM BLOODon 05-19-2022 Magnesium [Mass/Vol] 2.0 mg/dL Normal 1.9-2.7 [facility] Comment on above: Order Comment: No: D o not add to previous draw Performed By: #### 1 0070, 64299 #### [facility] [address] [facility] [place] [address], [facility] APTTon 05-18-2022 aPTT Coag (Bld) [Time] 80.7 s Critically high 25.0-35.0 [facility] Comment on above: Order Comment: No: D o not add to previous draw Result Comment: Resu lt checked and called. Accurately read back by BRANDI STOREY RN ON 05/18/2022 AT 14:48 Performed By: #### 2 5508, 77250, 37970, 17548, 84186, 21038 #### [facility] [address] [place] [address], [facility] aPTT Coag (Bld) [Time] 135.2 s Critically high 25.0-35.0 [facility] Comment on above: Order Comment: No: D o not add to previous draw Result Comment: Resu lt checked and called. Accurately read back by Pepe Connolly rn at 0447 Performed By: #### 2 5508, 30057, 90738, 55321, 95509, 82005 #### [facility] [address] [place] [id number] CBC COMPLETE BLOOD COUNTon 0 05-18-2022 Erythrocyte distribution width (RBC) [Ratio] 14.1 % Normal 11.5-15.0 [facility] Comment on above: Order Comment: No: D o not add to previous draw Performed By: #### 2 5508, 83596, 36546, 79908, 39687, 52227 #### [facility] [address] [place] [address], [facility] Hematocrit (Bld) [Volume fraction] 43.0 % Normal 39.0-50.0 [facility] Comment on above: Order Comment: No: D o not add to previous draw Performed By: #### 2 5508, 03983, 91168, 77105, 89180, 41460 #### [facility] [address] [place] [address], [facility] Hemoglobin (Bld) [Mass/Vol] 14.3 g/dL Normal 13.0-17.0 [facility] Comment on above: Order Comment: No: D o not add to previous draw Performed By: #### 2 5508, 34176, 86065, 44209, 28773, 07911 #### [facility] [address] [place] [address], [place] MCH (RBC) [Entitic mass] 28.8 pg Normal 27.0-33.0 [facility] Comment on above: Order Comment: No: D o not add to previous draw Performed By: #### 2 5508, 83645, 71338, 81190, 17062, 18690 #### [facility] [address] [place] [address], [facility] MCHC (RBC) [Mass/Vol] 33.3 g/dL Normal 32.0-35.0 [facility] Comment on above: Order Comment: No: D o not add to previous draw Performed By: #### 2 5508, 38571, 60738, 37133, 91332, 18946 #### [facility] [address] [place] [id number], [facility] MCV (RBC) [Entitic vol] 86.5 fL Normal 82.0-98.0 [facility] Comment on above: Order Comment: No: D o not add to previous draw Performed By: #### 2 5508, 56151, 70684, 19536, 40396, 64071 #### [facility] [address] [facility] [place] [address], [facility] Nucleated RBC/100 WBC (Bld) [Ratio] 0 % Normal 0-0 [facility] Comment on above: Order Comment: No: D o not add to previous draw Performed By: #### 2 5508, 20681, 48741, 92851, 13930, 06703 #### [facility] [address] [facility] [place] [address], [facility] PLAT CNT 105 10*3/uL Low 150-400 [facility] Comment on above: Order Comment: No: D o not add to previous draw Performed By: #### 2 5508, 01616, 47800, 65929, 03571, 84645 #### [facility] [address] [facility] [place] [address], [facility] RBC (Bld) [#/Vol] 4.97 10*6/uL Normal 4.20-5.70 [facility] Comment on above: Order Comment: No: D o not add to previous draw Performed By: #### 2 5508, 72897, 42439, 20400, 77208, 59442 #### [facility] [address] [facility] [place] [address], [facility] WBC (Bld) [#/Vol] 5.28 10*3/uL Normal 4.00-10.60 [facility] Comment on above: Order Comment: No: D o not add to previous draw Performed By: #### 2 5508, 96290, 86038, 60637, 65049, 48539 #### [facility] [address] [place] [address], [facility] POC GLUCOSE LABon 05-18-2022 Glucose [Mass/Vol] 92 mg/dL Normal 70-100 [facility] Comment on above: Performed By: #### 2 5508, 12208, 87117, 37098, 28794, 46876 #### [facility] [address] [place] [address], [facility] Glucose [Mass/Vol] 90 mg/dL Normal 70-100 [facility] Comment on above: Performed By: #### 2 5508, 52803, 71250, 10832, 47196, 50796 #### [facility] [address] [place] [address], [facility] PROTHROMBIN TIMEon INR Coag (PPP) [Relative time] 1.41 {INR} High 0.91-1.16 [facility] Comment on above: Order Comment: No: [...] CHEST 1995;108:[id number]. Performed By: #### 2 5508, 41301, 64755, 32039, 79551, 85053 #### [facility] [address] [place] [address], [facility] PT Coag (PPP) [Time] 17.2 s High 12.3-14.8 [facility] Comment on above: Order Comment: No: D o not add to previous draw Result Comment: ALL RESULTS MUST BE INTERPRETED WITH RESPECT TO BLOOD DRAWING ARTIFACT OR DILUTION ERROR OF ANTICOAGULANT AT THE TIME OF SAMPLING. Performed By: #### 2 5508, 90855, 28221, 53080, 85139, 37642 #### [facility] [address] [place] [address], [facility] UFH HEPARIN ASSAYon 05-18-20 22 UNFRACTIONATED HEPARIN >1.00 Critically high 0.30-0.70 [facility] Comment on above: Result Comment: Resu lt checked and called. Accurately read back by BRANDI STOREY RN ON 05/18/2022 AT 14:48 Rivaroxaban and Apixaban will interfere with the anti Xa assay used to monitor UFH and LMWH. Performed By: #### 2 5508, 12878, 46907, 71205, 91427, 63712 #### [facility] [address] [place] [address], [facility] UNFRACTIONATED HEPARIN >1.00 Critically high 0.30-0.70 [facility] Comment on above: Result Comment: Resu lt checked and called. Accurately read back by Pepe Connolly rn at 0447 Rivaroxaban and Apixaban will interfere with the anti Xa assay used to monitor UFH and LMWH. Performed By: #### 2 5508, 88137, 37355, 41307, 48966, 87910 #### [facility] [address] [place] [address], [facility] *BLOOD CULTUREon 05-17-2022 *BLOOD CULTURE Clinical Report: (D) Specimen: BLOOD CULTURE Collected: 05/17/2022 02:15 Status: Final Last Updated: 05/22/2022 07:50 CULT RES (Final) No Growth Day 5 Normal [facility] Comment on above: Performed By: #### 2 5508, [id number], 62911, 81425, 54063, 81638 #### [facility] [address] [place] [address], [facility] APTTon 05-17-2022 aPTT Coag (Bld) [Time] 147.6 s Critically high 25.0-35.0 [facility] Comment on above: Order Comment: No: D o not add to previous draw Result Comment: Resu lt checked and called. Accurately read back by brandi storey rn on 05/17/2022 at 18:38 Performed By: #### 2 5508, [id number], 93430, 40996, 48609, 98913 #### [facility] [facility] [address] [place] [address], [facility] aPTT Coag (Bld) [Time] 103.1 s Critically high 25.0-35.0 [facility] Comment on above: Order Comment: No: D o not add to previous draw Result Comment: Resu lt checked and called. Accurately read back by BRANDI STOREY @ 1000 Performed By: #### 2 5508, 24669, 16141, 21642, 20249, 08734 #### [facility] [address] [place] [address], [place] aPTT Coag (Bld) [Time] 47.9 s High 25.0-35.0 [facility] Comment on above: Order Comment: No: [...] THIS PURPOSE. Performed By: #### 2 5508, 78600, 20186, 27070, 34722, 02305 #### [facility] 3000 [facility]. [address] BNP (B-TYPE NATRIURETIC PEPT TWIN)on 05-17-2022 Natriuretic peptide B (Bld) [Mass/Vol] 584 pg/mL High 0-100 [facility] Comment on above: Order Comment: No: D o not add to previous draw Result Comment: Give n the appropriate clinical setting a BNP result of >100 pg/mL indicates congestive heart failure. Performed By: #### 2 5508, 11413, 59977, 58672, 76973, 14103 #### [facility] 3000 [facility]. [address] CBC W/DIFFon 05-17-2022 ABS IMM GRANS 0.0 10*3/uL Normal 0.0-0.2 [facility] Comment on above: Order Comment: No: D o not add to previous draw Performed By: #### 2 5508, 45909, 75661, 16376, 11396, 23221 #### [facility] [address] ABS NEUTROPHILS 3.6 10*3/uL Normal 1.6-7.6 [facility] Comment on above: Order Comment: No: D o not add to previous draw Performed By: #### 2 5508, 03582, 00720, 11619, 33473, 40615 #### [facility] 3000 [facility] [place] [address], [facility] Basophils (Bld) [#/Vol] 0.0 10*3/uL Normal 0.0-0.2 [facility] Comment on above: Order Comment: No: D o not add to previous draw Performed By: #### 2 5508, 70855, 92290, 80692, 39671, 41546 #### [facility] [address] [place] [address], [facility] Basophils/100 WBC (Bld) 0.6 % Normal 0.0-1.0 [facility] Comment on above: Order Comment: No: D o not add to previous draw Performed By: #### 2 5508, 81054, 08250, 86545, 78782, 69958 #### [facility] [address] [place] [address], [facility] Eosinophils (Bld) [#/Vol] 0.0 10*3/uL Normal 0.0-0.5 [facility] Comment on above: Order Comment: No: D o not add to previous draw Performed By: #### 2 5508, 64167, 99355, 68154, 01923, 91742 #### [facility] [address] [place] [address], [facility] Eosinophils/100 WBC (Bld) 0.2 % Normal 0.0-6.0 [facility] Comment on above: Order Comment: No: D o not add to previous draw Performed By: #### 2 5508, 13961, 56523, 48678, 68820, 05265 #### [facility] [address] [place] [address], [facility] Erythrocyte distribution width (RBC) [Ratio] 13.9 % Normal 11.5-15.0 [facility] Comment on above: Order Comment: No: D o not add to previous draw Performed By: #### 2 5508, 81710, 33209, 38933, 37520, 22396 #### [facility] [address] [place] [address], [place] Hematocrit (Bld) [Volume fraction] 40.6 % Normal 39.0-50.0 [facility] Comment on above: Order Comment: No: D o not add to previous draw Performed By: #### 2 5508, 94087, 36677, 80113, 16815, 56777 #### [facility] [address] [facility] [place] [address], [facility] Hemoglobin (Bld) [Mass/Vol] 13.7 g/dL Normal 13.0-17.0 [facility] Comment on above: Order Comment: No: D o not add to previous draw Performed By: #### 2 5508, 13039, 43445, 67390, 78189, 17295 #### [facility] [address] [facility] [place] [address], [facility] IMM PLATELET FRAC 6.9 % High 0.8-6.3 [facility] Comment on above: Order Comment: No: D o not add to previous draw Performed By: #### 2 5508, 99565, 89258, 31015, 22004, 47451 #### [facility] [address] [facility] [place] [address], [facility] IMMATURE GRANS 0.8 % Normal 0.0-1.0 [facility] Comment on above: Order Comment: No: D o not add to previous draw Performed By: #### 2 5508, 43023, 95659, 84584, 76521, 31449 #### [facility] [address] [facility] [place] [address], [facility] Lymphocytes (Bld) [#/Vol] 0.8 10*3/uL Low 1.2-4.0 [facility] Comment on above: Order Comment: No: D o not add to previous draw Performed By: #### 2 5508, 38593, 77232, 63190, 24857, 11527 #### [facility] [address] [facility] [place] [address], [facility] Lymphocytes/100 WBC (Bld) 15.5 % Low 20.0-45.0 [facility] Comment on above: Order Comment: No: D o not add to previous draw Performed By: #### 2 5508, 31903, 27017, 44090, 74012, 28186 #### [facility] [address] [place] [address], [facility] MCH (RBC) [Entitic mass] 29.3 pg Normal 27.0-33.0 [facility] Comment on above: Order Comment: No: D o not add to previous draw Performed By: #### 2 5508, 98819, 09333, 22935, 38217, 61277 #### [facility] [address] [place] [address], [facility] MCHC (RBC) [Mass/Vol] 33.7 g/dL Normal 32.0-35.0 [facility] Comment on above: Order Comment: No: D o not add to previous draw Performed By: #### 2 5508, 52737, 85618, 59105, 02328, 08446 #### [facility] [address] [place] [address], [facility] MCV (RBC) [Entitic vol] 86.9 fL Normal 82.0-98.0 [facility] Comment on above: Order Comment: No: D o not add to previous draw Performed By: #### 2 5508, 85057, 60760, 40942, 74840, 69957 #### [facility] [address] [place] [address], [facility] Monocytes (Bld) [#/Vol] 0.5 10*3/uL Normal 0.1-1.0 [facility] Comment on above: Order Comment: No: D o not add to previous draw Performed By: #### 2 5508, 16021, 43492, 41671, 13434, 08481 #### [facility] [address] [place] [address], [facility] MONOS 9.7 % Normal 5.0-12.0 [facility] Comment on above: Order Comment: No: D o not add to previous draw Performed By: #### 2 5508, 09765, 39578, 24001, 61865, 15952 #### [facility] [address] [place] [id number], [facility] Neutrophils/100 WBC (Bld) 73.2 % High 40.0-72.0 [facility] Comment on above: Order Comment: No: D o not add to previous draw Performed By: #### 2 5508, 97548, 20127, 61049, 81866, 66578 #### [facility] [address] [place] [address], [place] Nucleated RBC/100 WBC (Bld) [Ratio] 0 % Normal 0-0 [facility] Comment on above: Order Comment: No: D o not add to previous draw Performed By: #### 2 5508, 77870, 87527, 45741, 73755, 96150 #### [facility] [address] [place] [address], [facility] PLAT CNT 81 10*3/uL Low 150-400 [facility] Comment on above: Order Comment: No: D o not add to previous draw Performed By: #### 2 5508, 09274, 49226, 26140, 34608, 26343 #### [facility] [address] [place] [id number], [facility] RBC (Bld) [#/Vol] 4.67 10*6/uL Normal 4.20-5.70 [facility] Comment on above: Order Comment: No: D o not add to previous draw Performed By: #### 2 5508, 88683, 20384, 50969, 99299, 48699 #### [facility] [address] [place] [address], [place] WBC (Bld) [#/Vol] 4.96 10*3/uL Normal 4.00-10.60 [facility] Comment on above: Order Comment: No: D o not add to previous draw Performed By: #### 2 5508, 11805, 84587, 60504, 00758, 09487 #### [facility] [address] [place] [address], [place] COMP METABOLIC PANELon 05-17 Albumin [Mass/Vol] 3.0 g/dL Low 3.5-5.7 [facility] Comment on above: Order Comment: No: D o not add to previous draw Performed By: #### 2 5508, 25786, 80392, 62895, 42601, 56579 #### [facility] [address] [place] [address], [place] ALKALINE PHOSPH 48 IU/L Normal 34-104 [facility] Comment on above: Order Comment: No: D o not add to previous draw Performed By: #### 2 5508, 63819, 84352, 38340, 93076, 06787 #### [facility] [address] [place] [address], [place] ALT [Catalytic activity/Vol] 11 U/L Normal 7-52 [facility] Comment on above: Order Comment: No: D o not add to previous draw Performed By: #### 2 5508, 17673, 31521, 92796, 09763, 65287 #### [facility] [address] [place] [address], [place] AST [Catalytic activity/Vol] 19 U/L Normal 13-39 [facility] Comment on above: Order Comment: No: D o not add to previous draw Performed By: #### 2 5508, 46601, 54347, 22268, 62875, 08268 #### [facility] [address] [place] [address], [place] Bilirubin [Mass/Vol] 0.7 mg/dL Normal 0.3-1.0 [facility] Comment on above: Order Comment: No: D o not add to previous draw Performed By: #### 2 5508, 38661, 17510, 43691, 33068, 27970 #### [facility] [address] [place] [address], [place] Calcium [Mass/Vol] 8.5 mg/dL Low 8.6-10.3 [facility] Comment on above: Order Comment: No: D o not add to previous draw Performed By: #### 2 5508, 39487, 51902, 14989, 99920, 01190 #### [facility] [address] [place] [address], [facility] Chloride [Moles/Vol] 104 mmol/L Normal 98-107 [facility] Comment on above: Order Comment: No: D o not add to previous draw Performed By: #### 2 5508, 22290, 11457, 39225, 48277, 35056 #### [facility] [address] [place] [address], [facility] CO2 [Moles/Vol] 19 mmol/L Low 21-31 [facility] Comment on above: Order Comment: No: D o not add to previous draw Performed By: #### 2 5508, 86696, 21372, 47539, 49437, 22897 #### [facility] [address] [place] [id number], [facility] Creatinine [Mass/Vol] 1.71 mg/dL High 0.70-1.30 [facility] Comment on above: Order Comment: No: D o not add to previous draw Performed By: #### 2 5508, 39023, 49254, 97516, 28730, 26317 #### [facility] [address] [place] [address], [facility] EGFR 40 ml/min/1.73sq m Abnormal >60 [facility] Comment on above: Order Comment: No: D o not add to previous draw Result Comment: [facility]'s estimated glomerular filtration rate (eGFR) will [...] of individuals. Performed By: #### 2 5508, 81797, 86241, 61714, 57841, 34620 #### [facility] [address] [place] [address], [place] Glucose [Mass/Vol] 96 mg/dL Normal 70-100 [facility] Comment on above: Order Comment: No: D o not add to previous draw Performed By: #### 2 5508, 20188, 75147, 83323, 25687, 32227 #### [facility] [address] [place] [address], [place] Potassium [Moles/Vol] 3.8 mmol/L Normal 3.5-5.1 [facility] Comment on above: Order Comment: No: D o not add to previous draw Performed By: #### 2 5508, 64498, 74345, 68418, 11134, 02019 #### [facility] [address] [place] [address], [place] Protein [Mass/Vol] 5.7 g/dL Low 6.0-8.3 [facility] Comment on above: Order Comment: No: D o not add to previous draw Performed By: #### 2 5508, 23517, 77988, 81745, 32569, 96032 #### [facility] [address] [place] [address], [place] Sodium [Moles/Vol] 133 mmol/L Low 136-145 [facility] Comment on above: Order Comment: No: D o not add to previous draw Performed By: #### 2 5508, 81509, 20073, 33683, 87585, 73027 #### [facility] [address] [place] [address], [place] Urea nitrogen [Mass/Vol] 57 mg/dL High 7-25 [facility] Comment on above: Order Comment: No: D o not add to previous draw Performed By: #### 2 5508, 32657, 07571, 71911, 72528, 00377 #### [facility] [address] CPKon 05-17-2022 CK [Catalytic activity/Vol] 44 U/L Normal 30-223 [facility] Comment on above: Order Comment: No: D o not add to previous draw Performed By: #### 2 5508, 39858, 44551, 64124, 29085, 53251 #### [facility] [address] [place] [address], [facility] FREE T4on 05-17-2022 Free T4 [Mass/Vol] 0.78 ng/dL Normal 0.71-1.85 [facility] Comment on above: Performed By: #### 2 5508, 50196, 84751, 14446, 70499, 28228 #### [facility] [address] [place] [address], [facility] HEMOGLOBIN A1Con 05-17-2022 Glucose [Moles/Vol] 117 mmol/L Normal [facility] Comment on above: Order Comment: No: D o not add to previous draw Performed By: #### 2 5508, 93683, 64322, 12995, 95194, 47923 #### [facility] [address] [place] [address], [facility] HbA1c (Bld) [Mass fraction] 5.7 % Normal 4.0-6.0 [facility] Comment on above: Order Comment: No: D o not add to previous draw Performed By: #### 2 5508, 55188, 08848, 43597, 19089, 59881 #### [facility] [address] [place] [address], [facility] LACTATE BLOODon 05-17-2022 Lactate [Moles/Vol] 1.0 mmol/L Normal .5-2.2 [facility] Comment on above: Order Comment: No: D o not add to previous draw Performed By: #### 2 5508, 32430, 67693, 43392, 73297, 23383 #### [facility] [address] [place] [address], [facility] LIPID PROFILEon 05-17-2022 Cholesterol [Mass/Vol] 141 mg/dL Normal 120-200 [facility] Comment on above: Order Comment: No: D o not add to previous draw Result Comment: CHOL ESTEROL REFERENCE RANGE: 20 YEARS AND OLDER CARDIOVASCULAR RISK Less than 200 mg/dl Low Risk 200 to 239 mg/dl Borderline Risk 240 mg/dl and greater High Risk Performed By: #### 2 5508, 78956, 68854, 40432, 85007, 95934 #### [facility] [address] [place] [address], [facility] Cholesterol in HDL [Mass/Vol] 22 mg/dL Low 23-92 [facility] Comment on above: Order Comment: No: D o not add to previous draw Result Comment: Slig ht variation in normal range could be due to gender and/or age. HDL CHOLESTEROL REFERENCE RANGE: 20 years and older Cardiovascular Risk > or =60 mg/dL Desirable 40 TO 59 mg/dL Low Risk <40 mg/dL High Risk Performed By: #### 2 5508, 06688, 77345, 71274, 34225, 26031 #### [facility] [address] [place] [address], [place] Cholesterol in LDL [Mass/Vol] 95 mg/dL Normal 0-130 [facility] Comment on above: Order Comment: No: D o not add to previous draw Result Comment: LDL IS A CALCULATION LDL IS ONLY VALID IF THE TRIG IS LESS THAN 400. Performed By: #### 2 5508, 76612, 20995, 18008, 28013, 29423 #### [facility] [address] [place] [address], [place] Cholesterol.total/C holesterol in HDL [Mass ratio] 6.4 {ratio} High .0-4.5 [facility] Comment on above: Order Comment: No: D o not add to previous draw Performed By: #### 2 5508, 76037, 60940, 01353, 92179, 03875 #### [facility] [address] NON-HDL CHOLESTEROL 119 mg/dL Normal [facility] Comment on above: Order Comment: No: D o not add to previous draw Performed By: #### 2 5508, 68233, 36345, 12058, 85681, 34593 #### [facility] [address] [place] [address], [facility] Triglyceride [Mass/Vol] 122 mg/dL Normal 40-149 [facility] Comment on above: Order Comment: No: D o not add to previous draw Result Comment: TRIG LYCERIDE REFERENCE RANGE: 20 YEARS AND OLDER CARDIOVASCULAR RISK LESS THAN 150 mg/dl LOW RISK 150 TO 199 mg/dl BORDERLINE RISK 200 mg/dl AND GREATER HIGH RISK Performed By: #### 2 5508, 23636, 56467, 76515, 93742, 27285 #### [facility] [address] [facility] [place] [address], [facility] VLDL CHOL 24 mg/dL Normal 0-40 [facility] Comment on above: Order Comment: No: D o not add to previous draw Performed By: #### 2 5508, 09041, 91078, 79863, 02494, 82522 #### [facility] [address] [place] [address], [facility] POC GLUCOSE LABon 05-17-2022 Glucose [Mass/Vol] 91 mg/dL Normal 70-100 [facility] Comment on above: Performed By: #### 2 5508, 63721, 58572, 69721, 32895, 27712 #### [facility] [address] [place] [address], [facility] PORT[facility] CHEST 1 VIEWon 09-0 PORTABLE CHEST 1 VIEW [facility] Department of Radiology [address] [place] [id number] Patient Name: JOSÉ MIGUEL ANTONIO : 1940 Sex: M Age: Race: White Pt. Location: [id number] Patient Status: I Ordered Date: 05/17/2022 2:00:00 [...] pleural effusion. Approved by:Yaron Soriano05/17/2022 3:19 AM. IValdemar,have reviewed the image(s) and agree with the findings in this report. Electronically signed: Valdemar Coughlin. Transcribed by: [email or web address], User Resident: YARON NORTH Electronically Signed by: VALDEMAR COUGHLIN @ 05/17/2022 03:59 AM I personally read this/these film(s) with this resident Normal [facility] Comment on above: Order Comment: No: D o not add to previous draw PROTHROMBIN TIMEon 2 INR Coag (PPP) [Relative time] 2.07 {INR} High 0.91-1.16 [facility] Comment on above: Order Comment: No: [...] CHEST 1995;[id number]. Performed By: #### 2 5508, 29353, 80393, 45468, 66132, 35316 #### [facility] [address] PT Coag (PPP) [Time] 22.9 s High 12.3-14.8 [facility] Comment on above: Order Comment: No: D o not add to previous draw Result Comment: ALL RESULTS MUST BE INTERPRETED WITH RESPECT TO BLOOD DRAWING ARTIFACT OR DILUTION ERROR OF ANTICOAGULANT AT THE TIME OF SAMPLING. Performed By: #### 2 5508, 34339, 40994, 82758, 81120, 99814 #### [facility] [address] [place] [address], [facility] TROPONIN-Ion 05-17-2022 Troponin I.cardiac [Mass/Vol] 0.25 ng/mL Critically high 0.00-0.04 [facility] Comment on above: Order Comment: No: D o not add to previous draw Result Comment: M-OR EVIOUS CRITICAL RESULT REFERENCE RANGES: 0.00 - 0.04 ng/ml NORMAL 0.05 - 0.50 ng/ml INDETERMINATE > 0.50 ng/ml CONSISTENT WITH AN M.I. Performed By: #### 2 5508, 99429, 43596, 79249, 17846, 39456 #### [facility] [address] [facility]. [address] Troponin I.cardiac [Mass/Vol] 0.31 ng/mL Critically high 0.00-0.04 [facility] Comment on above: Order Comment: No: D o not add to previous draw Result Comment: M-TR OPONIN INITIAL CRITICAL HIGH; RESPUN AND RETESTED M-CRITICAL RESULT(S) REVIEWED, CALLED TO AND READ BACK BY DARIAN CLEMENTS AT 0345 REFERENCE RANGES: 0.00 - 0.04 ng/ml NORMAL 0.05 - 0.50 ng/ml INDETERMINATE > 0.50 ng/ml CONSISTENT WITH AN M.I. Performed By: #### 2 5508, 88860, 12730, 46777, 37012, 93754 #### [facility] [address] [facility] [place] [address], [facility] TSH3 WITH REFLEX FT4on 05-17 TSH 3RD GENERATION 0.19 uIU/mL Low 0.34-5.60 [facility] Comment on above: Order Comment: No: D o not add to previous draw Performed By: #### 2 5508, 53494, 08907, 01820, 17786, 14451 #### [facility] [address] [place] [address], [facility] UFH HEPARIN ASSAYon 05-17-20 22 UNFRACTIONATED HEPARIN >1.00 Critically high 0.30-0.70 [facility] Comment on above: Result Comment: Resu lt checked and called. Accurately read back by brandi storey rn on 05/17/2022 at 18:38 Rivaroxaban and Apixaban will interfere with the anti Xa assay used to monitor UFH and LMWH. Performed By: #### 2 5508, 07434, 10348, 33215, 26295, 65365 #### [facility] [address] [place] [address], [facility] UNFRACTIONATED HEPARIN >1.00 Critically high 0.30-0.70 [facility] Comment on above: Result Comment: Resu lt checked and called. Accurately read back by BRANDI STOREY @ 1000 Rivaroxaban and Apixaban will interfere with the anti Xa assay used to monitor UFH and LMWH. Performed By: #### 2 5508, 78031, 26098, 29539, 80731, 30732 #### [facility] [address] [facility] [place] [address], [facility] UNFRACTIONATED HEPARIN >1.00 Critically high 0.30-0.70 [facility] Comment on above: Result Comment: Resu lt checked and called. Accurately read back by Darian Clements RN at 0251 PT on Elquis UFH = 2.79 for pharmacy use Rivaroxaban and Apixaban will interfere with the anti Xa assay used to monitor UFH and LMWH. Performed By: #### 2 5508, 83799, 71825, 41629, 69844, 25496 #### [facility] [address] [place] [address], [facility] URINALYSIS REFLEXon 05-17-20 22 Appearance (U) CLEAR Normal CLEAR [facility] Comment on above: Order Comment: No: D o not add to previous draw Performed By: #### 2 5508, 72447, 78782, 01547, 20787, 71511 #### [facility] [address] [place] [address], [facility] Bilirubin Ql (U) Negative Normal NEGATIVE [facility] Comment on above: Order Comment: No: D o not add to previous draw Performed By: #### 2 5508, 91152, 53239, 34546, 42324, 51444 #### [facility] [address] [place] [address], [place] Color (U) YELLOW Normal YELLOW [facility] Comment on above: Order Comment: No: D o not add to previous draw Performed By: #### 2 5508, 46726, 70072, 67999, 22693, 25878 #### [facility] [address] [place] [address], [place] EPIS NONE SEEN Normal FEW,OCC,NONE SEEN [facility] Comment on above: Order Comment: No: D o not add to previous draw Performed By: #### 2 5508, 16543, 50092, 27160, 71810, 78816 #### [facility] [address] [place] [address], [place] Glucose Ql (U) Negative Normal NEGATIVE [facility] Comment on above: Order Comment: No: D o not add to previous draw Performed By: #### 2 5508, 85504, 01156, 19002, 33894, 13226 #### [facility] [address] [place] [address], [place] Hemoglobin Ql (U) TRACE Abnormal NEGATIVE [facility] Comment on above: Order Comment: No: D o not add to previous draw Performed By: #### 2 5508, 33819, 19275, 83775, 69651, 47190 #### [facility] [address] [place] [address], [place] KETONE Negative Normal NEGATIVE [facility] Comment on above: Order Comment: No: D o not add to previous draw Performed By: #### 2 5508, 11899, 56299, 81856, 37737, 85514 #### [facility] [address] [place] [address], [place] LEUK MARQUITA Negative Normal NEGATIVE [facility] Comment on above: Order Comment: No: D o not add to previous draw Performed By: #### 2 5508, 77620, 05050, 32921, 79330, 19416 #### [facility] [address] [place] [address], [facility] MUCUS THREADS OCC Abnormal NONE SEEN [facility] Comment on above: Order Comment: No: D o not add to previous draw Performed By: #### 2 5508, 48897, 96648, 56783, 98938, 76589 #### [facility] [address] [place] [address], [facility] [facility] N[facility] Ql (U) Negative Normal NEGATIVE [facility] Comment on above: Order Comment: No: D o not add to previous draw Performed By: #### 2 5508, 19787, 01173, 97757, 60129, 20289 #### [facility] [address] [place] [address], [facility] pH (U) 5.5 [pH] Normal 5.0-8.0 [facility] Comment on above: Order Comment: No: D o not add to previous draw Performed By: #### 2 5508, 44167, 08808, 81244, 20418, 50447 #### [facility] [address] [facility] [place] [address], [facility] Protein Ql (U) 30 Abnormal NEGATIVE [facility] Comment on above: Order Comment: No: D o not add to previous draw Performed By: #### 2 5508, 43927, 87163, 66670, 56866, 94169 #### [facility] [address] [facility] [place] [address], [facility] RBC 3-5 Abnormal NONE SEEN [facility] Comment on above: Order Comment: No: D o not add to previous draw Performed By: #### 2 5508, 37527, 71718, 69152, 34473, 90370 #### [facility] [address] SPEC GRAV 1.015 Normal 1.015-1.020 [facility] Comment on above: Order Comment: No: D o not add to previous draw Performed By: #### 2 5508, 90353, 74511, 07613, 25285, 59924 #### [facility] [address] [place] [address], [facility] WBC UA 0-2 Abnormal NONE SEEN [facility] Comment on above: Order Comment: No: D o not add to previous draw Performed By: #### 2 5508, 22265, 53215, 26354, 92600, 99174 #### [facility] [address] [facility]. [address] BNPon 05-16-2022 Natriuretic peptide B (Bld) [Mass/Vol] 68481.0 pg/mL Critically high <=1,800.0 [facility] Comment on above: Performed By: #### B MP, BNP #### [facility] [address] [place] [address] Dr. Silva Burnett CBC AUTO DIFFon 05-16-2022 BASO # 0.0 103/ul Normal 0.0-0.1 [facility] Comment on above: Performed By: #### V ITAD #### [facility] [address] [place] [address] Dr. Silva Burnett Basophils/100 WBC (Bld) 0.6 % Normal 0.2-2.0 [facility] Comment on above: Performed By: #### V ITAD #### [facility] [address] [place] [address] Dr. Silva Burnett EO # 0.0 103/ul Normal 0.0-0.7 [facility] Comment on above: Performed By: #### V ITAD #### [facility] [address] [place] [address] Dr. Silva Burnett Eosinophils/100 WBC (Bld) 0.1 % Critically low 0.9-7.0 [facility] Comment on above: Performed By: #### V ITAD #### [facility] [address] [address] [address] Silva Burnett Erythrocyte distribution width (RBC) [Ratio] 13.7 % Normal 11.0-15.0 [facility] Comment on above: Performed By: #### V ITAD #### [facility] [address] [place] [address] Dr. Silva Burnett Hematocrit (Bld) [Volume fraction] 45.5 % Normal 42.0-54.0 [facility] Comment on above: Performed By: #### V ITAD #### [facility] [address] [place] [address] Dr. Silva Burnett Hemoglobin (Bld) [Mass/Vol] 14.9 g/dL Normal 14.0-18.0 [facility] Comment on above: Performed By: #### V ITAD #### [facility] [address] [place] [address] Dr. Silva Burnett IG # 0.04 10e3/ul Critically high 0.00-0.03 [facility] Comment on above: Performed By: #### V ITAD #### [facility] [address] [place] [address] Dr. Silva Burnett IG % 0.6 % Critically high 0.0-0.[address] [facility] Comment on above: Performed By: #### V ITAD #### [facility] [address] [place] [address] Dr. Silva Burnett LYMPH # 0.8 103/ul Critically low 1.2-3.8 [facility] Comment on above: Performed By: #### V ITAD #### [facility] [address] [place] [address] Dr. Silva Burnett Lymphocytes/100 WBC (Bld) 11.9 % Critically low 20.5-60.0 [facility] Comment on above: Performed By: #### V ITAD #### [facility] [address] [place] [address] Dr. Silva Burnett MANUAL DIFF REQ NO Normal [facility] Comment on above: Performed By: #### V ITAD #### [facility] [address] [place] [address] Dr. Silva Burnett MCH (RBC) [Entitic mass] 29.0 pg Normal 25.9-34.0 [facility] Comment on above: Performed By: #### V ITAD #### [facility] [address] [place] [address] Dr. Silva Burnett MCHC (RBC) [Mass/Vol] 32.7 g/dL Normal 29.9-35.2 [facility] Comment on above: Performed By: #### V ITAD #### [facility] [address] [place] [address] Dr. Silva Burnett MCV (RBC) [Entitic vol] 88.7 fL Normal 80.0-94.0 [facility] Comment on above: Performed By: #### V ITAD #### [facility] [address] [place] [address] Dr. Silva Burnett MONO # 0.4 103/ul Normal 0.3-0.8 [facility] Comment on above: Performed By: #### V ITAD #### [facility] [address] [place] [address] Dr. Silva Burnett Monocytes/100 WBC (Bld) 6.5 % Normal 1.7-12.0 [facility] Comment on above: Performed By: #### V ITAD #### [facility] [address] [place] [address] Dr. Silva Burnett NEUT # 5.4 103/ul Normal 1.4-6.5 [facility] Comment on above: Performed By: #### V ITAD #### [facility] [address] [place] [address] Dr. Silva Burnett Neutrophils/100 WBC (Bld) 80.3 % Critically high 43.0-75.0 [facility] Comment on above: Performed By: #### V ITAD #### [facility] [address] [place] [address] Dr. Silva Burnett Platelet mean volume (Bld) [Entitic vol] 11.5 fL Normal 9.5-13.5 [facility] Comment on above: Performed By: #### V ITAD #### [facility] [address] [place], [place] [address] Dr. Silva Burnett PLT 111 103/ul Critically low 150-450 [facility] Comment on above: Performed By: #### V ITAD #### [facility] [address] [place], [place] [address] Dr. Silva Burnett RBC 5.13 106/ul Normal 4.70-6.10 [facility] Comment on above: Performed By: #### V ITAD #### [facility] [address] [place], [place] [address] Dr. Silva Burnett WBC 6.7 103/ul Normal 4.0-11.0 [facility] Comment on above: Performed By: #### V ITAD #### [facility] [address] [place], [place] [address] HEAD WO CONon [...] Date: 2022-05-16 17:37 Normal [facility] CULTURE URINEon 05-16-2022 CULTURE URINE Culture Observations : NO GROWTH. Normal [facility] Comment on above: Performed By: #### V ITAD #### [facility] [address] [place] [address] Dr. Silva Burnett Covid-19 PCR ([facility])on 04-18 SARS-CoV-2 (COVID-19) RNA BRANT+probe Ql (Unsp spec) Not detected Normal NOT DETECTED [facility] Comment on above: Result Comment: When diagnostic [...] for this test is supported by the [place] of Health and Human Service's declaration that [...] By: #### C VDTBH #### [facility] [address] [place] [address] Dr. Silva Burnett ER URINE PROFILEon 2 Bilirubin Ql (U) Negative Normal NEGATIVE [facility] Comment on above: Performed By: #### B MP, BNP #### [facility] [address] [place] [address] Dr. Silva Burnett Clarity (U) CLEAR Normal CLEAR [facility] Comment on above: Performed By: #### B MP, BNP #### [facility] [address] [place] [address] Dr. Silva Burnett Color (U) DK. YELLOW Normal YELLOW [facility] Comment on above: Performed By: #### B MP, BNP #### [facility] [address] [place] [address] Dr. Silva Burnett ERUAHD A micrscopic examina tion will be performed if indicated. Normal [facility] Comment on above: Performed By: #### B MP, BNP #### [facility] [address] [place] [address] Dr. Silva Burnett Glucose Ql (U) Negative Normal NEGATIVE [facility] Comment on above: Performed By: #### B MP, BNP #### [facility] [address] [place] [address] Dr. Silva Burnett Hemoglobin Ql (U) TRACE-INTACT Abnormal NEGATIVE [facility] Comment on above: Performed By: #### B MP, BNP #### [facility] [address] [place] [address] Dr. Silva Burnett Ketones Ql (U) TRACE Abnormal NEGATIVE [facility] Comment on above: Performed By: #### B MP, BNP #### [facility] [address] [place] [address] Dr. Silva Burnett LEUKOCYTES Negative Normal NEGATIVE [facility] Comment on above: Performed By: #### B MP, BNP #### [facility] [address] [place] [address] Dr. Silva Burnett Nitrite Ql (U) Negative Normal NEGATIVE [facility] Comment on above: Performed By: #### B MP, BNP #### [facility] [address] [place] [address] Dr. Silva Burnett pH (U) 5.5 [pH] Normal 5-9 [facility] Comment on above: Performed By: #### B MP, BNP #### [facility] [address] [place] [address] Dr. Silva Burnett Protein (U) [Mass/Vol] 30 mg/dL Abnormal NEGATIVE/ TRACE [facility] Comment on above: Performed By: #### B MP, BNP #### [facility] [address] [place] [address] Dr. Silva Burnett SPEC GRAVITY 1.025 Normal 1.005-<=1.02 5 [facility] Comment on above: Performed By: #### B MP, BNP #### [facility] [address] [place] [address] Dr. Silva Burnett UR MICRO IND INDICATED Normal [facility] Comment on above: Performed By: #### B MP, BNP #### [facility] [address] [place] [address] Dr. Silva Burnett Urobilinogen Qn (U) 0.2 {Zaina'U}/dL Normal 0.2 - 1. 0 [facility] Comment on above: Performed By: #### B MP, BNP #### [facility] [address] [place] [address] Dr. Silva Burnett PROF 14(COMP METB)on 022 Albumin [Mass/Vol] 2.8 g/dL Critically low 3.4-5.0 [facility] Comment on above: Performed By: #### B MP, BNP #### [facility] [address] [place] [address] Dr. Silva Burnett Albumin/Globulin [Mass ratio] 0.7 {ratio} Normal [facility] Comment on above: Performed By: #### B MP, BNP #### [facility] [address] [place] [address] Dr. Silva Burnett ALP [Catalytic activity/Vol] 69 U/L Normal 46-116 [facility] Comment on above: Performed By: #### B MP, BNP #### [facility] [address] [place] [address] Dr. Silva Burnett ALT [Catalytic activity/Vol] 16 U/L Normal 16-63 [facility] Comment on above: Performed By: #### B MP, BNP #### [facility] [address] [place] [address] Dr. Silva Burnett Anion gap [Moles/Vol] 15.2 mmol/L Normal [facility] Comment on above: Performed By: #### B MP, BNP #### [facility] [address] [place] [address] Dr. Silva Burnett AST [Catalytic activity/Vol] 30 U/L Normal 15-37 [facility] Comment on above: Performed By: #### B MP, BNP #### [facility] [address] [address] [address] Silva Burnett Bilirubin [Mass/Vol] 0.9 mg/dL Normal 0.2-1.0 [facility] Comment on above: Performed By: #### B MP, BNP #### [facility] [address] [place] [address] Dr. Silva Burnett Calcium [Mass/Vol] 9.0 mg/dL Normal 8.5-10.1 [facility] Comment on above: Performed By: #### B MP, BNP #### [facility] [address] [place] [address] Dr. Silva Burnett Chloride [Moles/Vol] 98 mmol/L Normal 98-107 [facility] Comment on above: Performed By: #### B MP, BNP #### [facility] [address] [place] [address] Dr. Silva Burnett CO2 [Moles/Vol] 22.9 mmol/L Normal 21.0-32.0 [facility] Comment on above: Performed By: #### B MP, BNP #### [facility] [address] [place] [address] Dr. Silva Burnett Creatinine [Mass/Vol] 2.20 mg/dL Critically high 0.70-1.30 [facility] Comment on above: Performed By: #### B MP, BNP #### [facility] [address] [place] [address] Dr. Silva Burnett EGFR-AF SAUDI ARABIAN 35 mL/min/1.73m2 Critically low >=60 [facility] Comment on above: Performed By: #### B MP, BNP #### [facility] [address] [place] [address] Dr. Silva Burnett EGFR-NON AF SAUDI ARABIAN 29 mL/min/1.73m2 Critically low >=60 [facility] Comment on above: Performed By: #### B MP, BNP #### [facility] [address] [place] [address] Dr. Silva Burnett Globulin (S) [Mass/Vol] 4.0 g/dL Normal [facility] Comment on above: Performed By: #### B MP, BNP #### [facility] [address] [address] [address] Silva Burnett Glucose [Mass/Vol] 148 mg/dL Critically high 74-106 [facility] Comment on above: Performed By: #### B MP, BNP #### [facility] [address] [address] [address] Silva Burnett Potassium [Moles/Vol] 4.1 mmol/L Normal 3.5-5.1 [facility] Comment on above: Performed By: #### B MP, BNP #### [facility] [address] [place] [address] Dr. Silva Burnett Protein [Mass/Vol] 6.8 g/dL Normal 6.4-8.2 [facility] Comment on above: Performed By: #### B MP, BNP #### [facility] [address] [place] [address] Dr. Silva Burnett Sodium [Moles/Vol] 132 mmol/L Critically low 136-145 [facility] Comment on above: Performed By: #### B MP, BNP #### [facility] [address] [place] [address] Dr. Silva Burnett Urea nitrogen [Mass/Vol] 60.0 mg/dL Critically high 7.0-18.0 [facility] Comment on above: Performed By: #### B MP, BNP #### [facility] [address] [place] [address] Dr. Silva Burnett Urea nitrogen/Creatinine [Mass ratio] 27.3 mg/mg Normal [facility] Comment on above: Performed By: #### B MP, BNP #### [facility] [address] [place] [address] Dr. Silva Burnett PROTIMEon 05-16-2022 INR Coag (PPP) [Relative time] 1.43 {INR} Normal [facility] Comment on above: Performed By: #### V ITAD #### [facility] [address] [place] [address] Dr. Silva Burnett INR GUIDELINES SEE BELOW Normal [facility] Comment on above: Result Comment: EDMOND RED INR: 2.0 - 3.0 CONDITIONS NOT LISTED BELOW 2.5 - 3.5 FOR PROSTHETIC HEART VALVE REPLACEMENT 2.5 - 3.5 RECURRENT THROMBOSIS Performed By: #### V ITAD #### [facility] [address] [place] [address] Dr. Silva Burnett PT Coag (PPP) [Time] 15.1 s Critically high 9.0-11.6 [facility] Comment on above: Performed By: #### V ITAD #### [facility] [address] [place] [address] Dr. Silva Burnett PTTon 05-16-2022 aPTT Coag (Bld) [Time] 35.6 s Normal 22.3-36.2 [facility] Comment on above: Performed By: #### V ITAD #### [facility] [address] [place] [address] Dr. Silva Burnett TROPONIN, HIGH SENSITIVITYon 05-16-2022 HSTROP 895.9 pg/mL Critically high 4.0-76.1 [facility] Comment on above: Result Comment: CUT- OFF POINTS HAVE BEEN ESTABLISHED BASED ON THE FOURTH UNIVERSAL DEFINITIONS OF MYOCARDIAL INFARCTION. THE UPPER REFERENCE LIMIT (URL) OF TROPONIN, DEFINED THE 99TH PERCENTILE OF cTnI DISTRIBUTION IN A REFERENCE POPULATION, HAS BEEN CONFIRMED THE DECISION THRESHOLD FOR MD DIAGNOSIS. Performed By: #### B MP, BNP #### [facility] [address] [place] [address] Dr. Silva Burnett HSTROP 1000.5 pg/mL Critically high 4.0-76.1 [facility] Comment on above: Result Comment: CUT- OFF POINTS HAVE BEEN ESTABLISHED BASED ON THE FOURTH UNIVERSAL DEFINITIONS OF MYOCARDIAL INFARCTION. THE UPPER REFERENCE LIMIT (URL) OF TROPONIN, DEFINED THE 99TH PERCENTILE OF cTnI DISTRIBUTION IN A REFERENCE POPULATION, HAS BEEN CONFIRMED THE DECISION THRESHOLD FOR MD DIAGNOSIS. Performed By: #### B MP, BNP #### [facility] [address] [place] [address] Dr. Silva Burnett URINE MICROSCOPIC ONLYon BACTERIA TRACE Abnormal NONE SEEN [facility] Comment on above: Performed By: #### B MP, BNP #### [facility] [address] [place] [address] Dr. Silva Burnett Bacteria identified Cx Nom (U) INDICATED Normal [facility] Comment on above: Performed By: #### B MP, BNP #### [facility] [address] [place] [address] Dr. Silva Burnett CAST SEEN Abnormal NONE SEEN [facility] Comment on above: Performed By: #### B MP, BNP #### [facility] [address] [place] [address] Dr. Silva Burnett Crystals LM Nom (Urine sed) NONE SEEN Normal NONE SEEN [facility] Comment on above: Performed By: #### B MP, BNP #### [facility] [address] [place] [address] Dr. Silva Burnett Epithelial cells LM Ql (Urine sed) FEW Abnormal NONE SEEN /RARE [facility] Comment on above: Performed By: #### B MP, BNP #### [facility] [address] [place] [address] Dr. Silva Burnett HYALINE CAST FEW Normal [facility] Comment on above: Performed By: #### B MP, BNP #### [facility] [address] [place] [address] Dr. Silva Burnett MUCOUS SMALL Abnormal NONE SEEN [facility] Comment on above: Performed By: #### B MP, BNP #### [facility] [address] [place] [address] Dr. Silva Burnett RBC 0-2 Normal 0-2 [facility] Comment on above: Performed By: #### B MP, BNP #### [facility] [address] [place] [address] Dr. Silva Burnett WBC 5-10 Abnormal NONE SEEN [facility] Comment on above: Performed By: #### B MP, BNP #### [facility] [address] [place] [address] Dr. Silva Burnett XR CHEST 1 Von [...] Date: 2022-05-16 15:53 Normal [facility] BNPon 05-14-2022 NT PRO BNP >79009.0 Critically high <=1,800.0 [facility] Comment on above: Performed By: #### B MP, BNP #### [facility] [address] [place] [address] Dr. Silva Burnett CBC AUTO DIFFon 05-14-2022 BASO # 0.0 103/ul Normal 0.0-0.1 [facility] Comment on above: Performed By: #### B MP, BNP #### [facility] [address] [place] [address] Dr. Silva Burnett Basophils/100 WBC (Bld) 0.3 % Normal 0.2-2.0 [facility] Comment on above: Performed By: #### B MP, BNP #### [facility] [address] [place] [address] Dr. Silva Burnett EO # 0.0 103/ul Normal 0.0-0.7 [facility] Comment on above: Performed By: #### B MP, BNP #### [facility] [address] [place] [address] Dr. Silva Burnett Eosinophils/100 WBC (Bld) 0.0 % Critically low 0.9-7.0 [facility] Comment on above: Performed By: #### B MP, BNP #### [facility] [address] [place] [address] Dr. Silva Burnett Erythrocyte distribution width (RBC) [Ratio] 13.6 % Normal 11.0-15.0 [facility] Comment on above: Performed By: #### B MP, BNP #### [facility] [address] [place] [address] Dr. Silva Burnett Hematocrit (Bld) [Volume fraction] 41.8 % Critically low 42.0-54.0 [facility] Comment on above: Performed By: #### B MP, BNP #### [facility] [address] [place] [address] Dr. Silva Burnett Hemoglobin (Bld) [Mass/Vol] 13.6 g/dL Critically low 14.0-18.0 [facility] Comment on above: Performed By: #### B MP, BNP #### [facility] [address] [place] [address] Dr. Silva Burnett IG # 0.04 10e3/ul Critically high 0.00-0.03 [facility] Comment on above: Performed By: #### B MP, BNP #### [facility] [address] [place] [address] Dr. Silva Burnett IG % 0.5 % Normal 0.0-0.5 [facility] Comment on above: Performed By: #### B MP, BNP #### [facility] [address] [place] [address] Dr. Silva Burnett LYMPH # 0.5 103/ul Critically low 1.2-3.8 [facility] Comment on above: Performed By: #### B MP, BNP #### [facility] [address] [place] [address] Dr. Silva Burnett Lymphocytes/100 WBC (Bld) 7.1 % Critically low 20.5-60.0 [facility] Comment on above: Performed By: #### B MP, BNP #### [facility] [address] [place] [address] Dr. Silva Burnett MANUAL DIFF REQ NO Normal [facility] Comment on above: Performed By: #### B MP, BNP #### [facility] [address] [place] [address] Dr. Silva Burnett MCH (RBC) [Entitic mass] 29.4 pg Normal 25.9-34.0 [facility] Comment on above: Performed By: #### B MP, BNP #### [facility] [address] [place] [address] Dr. Silva Burnett MCHC (RBC) [Mass/Vol] 32.5 g/dL Normal 29.9-35.2 [facility] Comment on above: Performed By: #### B MP, BNP #### [facility] [address] [place] [address] Dr. Silva Burnett MCV (RBC) [Entitic vol] 90.3 fL Normal 80.0-94.0 [facility] Comment on above: Performed By: #### B MP, BNP #### [facility] [address] [place] [address] Dr. Silva Burnett MONO # 0.4 103/ul Normal 0.3-0.8 [facility] Comment on above: Performed By: #### B MP, BNP #### [facility] [address] [place] [address] Dr. Silva Burnett Monocytes/100 WBC (Bld) 5.4 % Normal 1.7-12.0 [facility] Comment on above: Performed By: #### B MP, BNP #### [facility] [address] [place] [address] Dr. Silva Burnett NEUT # 6.6 103/ul Critically high 1.4-6.5 [facility] Comment on above: Performed By: #### B MP, BNP #### [facility] [address] [place] [address] Dr. Silva Burnett Neutrophils/100 WBC (Bld) 86.7 % Critically high 43.0-75.0 [facility] Comment on above: Performed By: #### B MP, BNP #### [facility] [address] [place] [address] Dr. Silva Burnett Platelet mean volume (Bld) [Entitic vol] 10.4 fL Normal 9.5-13.5 [facility] Comment on above: Performed By: #### B MP, BNP #### [facility] [address] [place] [address] Dr. Silva Burnett PLT 110 103/ul Critically low 150-450 [facility] Comment on above: Performed By: #### B MP, BNP #### [facility] [address] [place] [address] Dr. Silva Burnett RBC 4.63 106/ul Critically low 4.70-6.[address] [facility] Comment on above: Performed By: #### B MP, BNP #### [facility] [address] [place] [address] Dr. Silva Burnett WBC 7.6 103/ul Normal 4.0-11.0 [facility] Comment on above: Performed By: #### B MP, BNP #### [facility] [address] [place] [address] Dr. Silva Burnett CULTURE URINEon 05-14-2022 CULTURE URINE Culture Observations : NO GROWTH. Normal [facility] Comment on above: Performed By: #### V ITAD #### [facility] [address] [place] [address] Dr. Silva Burnett IRONon 05-14-2022 Iron [Mass/Vol] 18.0 ug/dL Critically low 65.0-175.0 [facility] Comment on above: Performed By: #### I CUBA #### [facility] [address] [place] [address] Dr. Silva Burnett PROF 14(COMP METB)on 022 Albumin [Mass/Vol] 3.4 g/dL Normal 3.4-5.0 [facility] Comment on above: Performed By: #### B MP, BNP #### [facility] [address] [place] [address] Dr. Silva Burnett Albumin/Globulin [Mass ratio] 0.8 {ratio} Normal [facility] Comment on above: Performed By: #### B MP, BNP #### [facility] [address] [place] [address] Dr. Silva Burnett ALP [Catalytic activity/Vol] 77 U/L Normal 46-116 [facility] Comment on above: Performed By: #### B MP, BNP #### [facility] [address] [place] [address] Dr. Silva Burnett ALT [Catalytic activity/Vol] 16 U/L Normal 16-63 [facility] Comment on above: Performed By: #### B MP, BNP #### [facility] [address] [address] [address] Silva Burnett Anion gap [Moles/Vol] 13.3 mmol/L Normal [facility] Comment on above: Performed By: #### B MP, BNP #### [facility] [address] [address] [address] Silva Burnett AST [Catalytic activity/Vol] 23 U/L Normal 15-37 [facility] Comment on above: Performed By: #### B MP, BNP #### [facility] [address] [address] [address] Silva Burnett Bilirubin [Mass/Vol] 0.9 mg/dL Normal 0.2-1.0 [facility] Comment on above: Performed By: #### B MP, BNP #### [facility] [address] [place] [address] Dr. Silva Burnett Calcium [Mass/Vol] 9.3 mg/dL Normal 8.5-10.1 [facility] Comment on above: Performed By: #### B MP, BNP #### [facility] [address] [address] [address] Silva Burnett Chloride [Moles/Vol] 98 mmol/L Normal 98-107 [facility] Comment on above: Performed By: #### B MP, BNP #### [facility] [address] [address] [address] Silva Burnett CO2 [Moles/Vol] 26.0 mmol/L Normal 21.0-32.0 [facility] Comment on above: Performed By: #### B MP, BNP #### [facility] [address] [address] [address] Silva Burnett Creatinine [Mass/Vol] 1.84 mg/dL Critically high 0.70-1.30 [facility] Comment on above: Performed By: #### B MP, BNP #### [facility] [address] [address] [address] Silva Burnett EGFR-AF SAUDI ARABIAN 43 mL/min/1.73m2 Critically low >=60 [facility] Comment on above: Performed By: #### B MP, BNP #### [facility] [address] [address] [address] Silva Burnett EGFR-NON AF SAUDI ARABIAN 36 mL/min/1.73m2 Critically low >=60 [facility] Comment on above: Performed By: #### B MP, BNP #### [facility] [address] [address] [address] Silva Burnett Globulin (S) [Mass/Vol] 4.1 g/dL Normal [facility] Comment on above: Performed By: #### B MP, BNP #### [facility] [address] [address] [address] Silva Burnett Glucose [Mass/Vol] 132 mg/dL Critically high 74-106 [facility] Comment on above: Performed By: #### B MP, BNP #### [facility] [address] [address] [address] Silva Burnett Potassium [Moles/Vol] 4.3 mmol/L Normal 3.5-5.1 [facility] Comment on above: Performed By: #### B MP, BNP #### [facility] [address] [address] [address] Silva Burnett Protein [Mass/Vol] 7.5 g/dL Normal 6.4-8.2 [facility] Comment on above: Performed By: #### B MP, BNP #### [facility] [address] [address] [address] Silva Burnett Sodium [Moles/Vol] 133 mmol/L Critically low 136-145 [facility] Comment on above: Performed By: #### B MP, BNP #### [facility] [address] [address] [address] Silva Burnett Urea nitrogen [Mass/Vol] 38.0 mg/dL Critically high 7.0-18.0 [facility] Comment on above: Performed By: #### B MP, BNP #### [facility] [address] [address] [address] Silva Burnett Urea nitrogen/Creatinine [Mass ratio] 20.7 mg/mg Normal [facility] Comment on above: Performed By: #### B MP, BNP #### [facility] [address] [place] [address] Dr. Silva Burnett UA RANDOM W/MICROSCOPICon BACTERIA NONE SEEN Normal NONE SEEN [facility] Comment on above: Performed By: #### U AMIC #### [facility] [address] [place] [address] Dr. Silva Burnett Bilirubin Ql (U) Negative Normal NEGATIVE [facility] Comment on above: Performed By: #### U AMIC #### [facility] [address] [place] [address] Dr. Silva Burnett CAST NONE SEEN Normal NONE SEEN [facility] Comment on above: Performed By: #### U AMIC #### [facility] [address] [place] [address] Dr. Silva Burnett Clarity (U) CLEAR Normal CLEAR [facility] Comment on above: Performed By: #### U AMIC #### [facility] [address] [place] [address] Dr. Silva Burnett Color (U) YELLOW Normal YELLOW [facility] Comment on above: Performed By: #### U AMIC #### [facility] [address] [address] [address] Silva Burnett Crystals LM Nom (Urine sed) NONE SEEN Normal NONE SEEN [facility] Comment on above: Performed By: #### U AMIC #### [facility] [address] [place] [address] Dr. Silva Burnett Epithelial cells LM Ql (Urine sed) NONE SEEN Normal NONE SEEN /RARE [facility] Comment on above: Performed By: #### U AMIC #### [facility] [address] [place] [address] Dr. Silva Burnett Glucose Ql (U) Negative Normal NEGATIVE The [facility] Comment on above: Performed By: #### U AMIC #### [facility] [address] [place] [address] Dr. Silva Burnett Hemoglobin Ql (U) MODERATE Abnormal NEGATIVE The [facility] Comment on above: Performed By: #### U AMIC #### [facility] [address] [address] [address] Silva Burnett Ketones Ql (U) Negative Normal NEGATIVE The [facility] Comment on above: Performed By: #### U AMIC #### [facility] [address] [address] [address] Silva Burnett LEUKOCYTES Negative Normal NEGATIVE [facility] Comment on above: Performed By: #### U AMIC #### [facility] [address] [address] [address] Silva Burnett MUCOUS NONE SEEN Normal NONE SEEN [facility] Comment on above: Performed By: #### U AMIC #### [facility] [address] [place] [address] Dr. Silva Burnett Nitrite Ql (U) Negative Normal NEGATIVE [facility] Comment on above: Performed By: #### U AMIC #### [facility] [address] [place] [address] Dr. Silva Burnett pH (U) 6.0 [pH] Normal 5-9 [facility] Comment on above: Performed By: #### U AMIC #### [facility] [address] [place] [address] Dr. Silva Burnett RBC 0-2 Normal 0-2 [facility] Comment on above: Performed By: #### U AMIC #### [facility] [address] [place] [address] Dr. Silva Burnett SPEC GRAVITY 1.025 Normal 1.005-<=1.02 5 [facility] Comment on above: Performed By: #### U AMIC #### [facility] [address] [place] [address] Dr. Silva Burnett UA PROTEIN 30 mg/dl Abnormal NEGATIVE/ TRACE [facility] Comment on above: Performed By: #### U AMIC #### [facility] [address] [place] [address] Dr. Silva Burnett Urobilinogen Qn (U) 1.0 {Zaina'U}/dL Normal 0.2 - 1. 0 [facility] Comment on above: Performed By: #### U AMIC #### [facility] [address] [address] [address] Silva Burnett WBC NONE SEEN Normal NONE SEEN The [facility] Comment on above: Performed By: #### U AMIC #### [facility] [address] [place], [place] [address] Dr. Sivla Burnett ICD REMOTE CHECKon 2 AV Delay Adaptive Paced Minimum (ms) 200 ms [facility] AV Delay Adaptive Sensed Minimum (ms) 170 ms [facility] Bj RA Pacing Amplitude (volts) 2 V [facility] Bj RA Pacing Polarity BI [facility] Bj RA Pacing Pulse Width (ms) 0.5 ms [facility] Bj RA Sensing Amplitude (mvolts) 0.25 mV [facility] Bj RA Sensing Polarity BI [facility] Bj RV Pacing Amplitude (volts) 2 V [facility] Bj RV Pacing Polarity BI [facility] Bj RV Pacing Pulse Width (ms) 0.5 ms [facility] Bj RV Sensing Amplitude (mvolts) 0.3 mV [facility] Bj RV Sensing Polarity BI [facility] Detection Configuration (Vent) 2 - Zone [facility] FastVT_Detection Interval 250 ms [facility] FastVT_Therapy Configuration 1 ATP(s) + 8 Shock(s) [facility] ICD FastVT DetectionStatus ENABLED [facility] ICD-AMS EPISODES 170 {beats}/min [facility] ICD-ATP Episodes (Vent) 0 [facility] ICD-ATRIALFIBRILLAT ION 21 [facility] ICD-ATRIALTACHYCARD IA 21 [facility] ICD-ATRIALTACHYCARD IA 6 [facility] ICD-Device Mfg BSX [facility] ICD-Fast Ventricular Tachycardia 6 [facility] ICD-LEADIMPEDANCEAT RIAL 709 ohm [facility] ICD-Percent Pacing (Atrial) 5 % [facility] ICD-Percent Pacing (Vent) 1 % [facility] ICD-Shocks Aborted (Vent) 0 [facility] DAA-KDPRRW-MRBTCGET D 0 [facility] ICD-SHOCKSABORTED 0 [facility] ICD-SHOCKSDELIVERED VENTRICULAR 0 [facility] ICD-Ventricular Fibrillation 0 [facility] Lead Impedance (RV) 416 ohm [facility] Lead Impedance High Voltage 47 ohm [facility] Lead1 Mfg BSX [facility] Lead2 Mfg BSX [facility] Location RV [facility] Location RA [facility] Lower Rate (bpm) 50 {beats}/min [facility] Max Sensor Rate (bpm) 130 {beats}/min [facility] MDT_PROG_TACHY_ZONE _DETECTIONS_STATUS ENABLED [facility] Model D142 INOGEN [facility] Model 0675 Elsie 4-Front [facility] Model 7741 Ingevity MRI [facility] Pacing Mode DDDR [facility] Serial Number [id number] [facility] Serial Number [id number] [facility] Serial Number [id number] [facility] Test Charge Energy 23 J [facility] Test Charge Time 10.1 s [facility] Therapy Status (Vent) Enabled [facility] Thresh RA Capture Amplitude (volts) 0.6 V [facility] Thresh RA Capture Duration (ms) 0.5 ms [facility] Thresh RV Capture Amplitude (VOLTS) 0.4 V [facility] Thresh RV Capture Duration (MS) 0.5 ms [facility] Tracking Rate (bpm) 130 {beats}/min [facility] VF Zone Detection Interval 250 ms [facility] VF Zone Therapy Configuration 1 ATP(s) + 8 Shock(s) [facility] No Panel Informationon 05-08 BLANK _ [facility] ICD-ATRIALTACHYCARD IA 0 [facility] ICD-Fast Ventricular Tachycardia 0 [facility] Implant Date 03/24/2019 [facility] ICD REMOTE CHECKon 2 AV Delay Adaptive Paced Minimum (ms) 200 ms [facility] AV Delay Adaptive Sensed Minimum (ms) 170 ms [facility] Bj RA Pacing Amplitude (volts) 2 V [facility] Bj RA Pacing Polarity BI [facility] Bj RA Pacing Pulse Width (ms) 0.5 ms [facility] Jb RA Sensing Amplitude (mvolts) 0.25 mV [facility] Bj RA Sensing Polarity BI [facility] Bj RV Pacing Amplitude (volts) 2 V [facility] Bj RV Pacing Polarity BI [facility] Bj RV Pacing Pulse Width (ms) 0.5 ms [facility] Bj RV Sensing Amplitude (mvolts) 0.3 mV [facility] Bj RV Sensing Polarity BI [facility] Detection Configuration (Vent) 2 - Zone [facility] FastVT_Detection Interval 250 ms [facility] FastVT_Therapy Configuration 1 ATP(s) + 8 Shock(s) [facility] ICD FastVT DetectionStatus ENABLED [facility] ICD-AMS EPISODES 170 {beats}/min [facility] ICD-ATP Episodes (Vent) 0 [facility] ICD-ATRIALFIBRILLAT ION 19 [facility] ICD-ATRIALTACHYCARD IA 19 [facility] ICD-ATRIALTACHYCARD IA 4 [facility] ICD-Device Mfg BSX [facility] ICD-Fast Ventricular Tachycardia 4 [facility] ICD-LEADIMPEDANCEAT RIAL 734 ohm [facility] ICD-Percent Pacing (Atrial) 6 % [facility] ICD-Percent Pacing (Vent) 1 % [facility] ICD-Shocks Aborted (Vent) 0 [facility] QOH-MHSHHG-NGGWYEOP D 0 [facility] ICD-SHOCKSABORTED 0 [facility] ICD-SHOCKSDELIVERED VENTRICULAR 0 [facility] ICD-Ventricular Fibrillation 0 [facility] Lead Impedance (RV) 427 ohm [facility] Lead Impedance High Voltage 48 ohm [facility] Lead1 Mfg BSX [facility] Lead2 Mfg BSX [facility] Location RV [facility] Location RA [facility] Lower Rate (bpm) 50 {beats}/min [facility] Max Sensor Rate (bpm) 130 {beats}/min [facility] MDT_PROG_TACHY_ZONE _DETECTIONS_STATUS ENABLED [facility] Model D142 INOGEN [facility] Model 0675 Elsie 4-Front [facility] Model 7741 Ingevity MRI [facility] Pacing Mode DDDR [facility] Serial Number [id number] [facility] Serial Number [id number] [facility] Serial Number [id number] [facility] Test Charge Energy 23 J [facility] Test Charge Time 10 s [facility] Therapy Status (Vent) Enabled [facility] Thresh RA Capture Amplitude (volts) 0.6 V [facility] Thresh RA Capture Duration (ms) 0.5 ms [facility] Thresh RV Capture Amplitude (VOLTS) 0.4 V [facility] Thresh RV Capture Duration (MS) 0.5 ms [facility] Tracking Rate (bpm) 130 {beats}/min [facility] VF Zone Detection Interval 250 ms [facility] VF Zone Therapy Configuration 1 ATP(s) + 8 Shock(s) [facility] No Panel Informationon 02-06 BLANK _ [facility] ICD-ATRIALTACHYCARD IA 0 [facility] ICD-Fast Ventricular Tachycardia 0 [facility] Implant Date 03/24/[address] [facility] [address] Chest W contrast Pilo IMPRESSION: 1. [...] any questions regarding this interpretation, please call [phone]. If you are unable to reach us at the number above, please feel free to contact [facility] eRadiology at [phone]. DIVISION OF RADIOLOGY * * *Final Report* * * DATE OF EXAM: Sep 13 2021 3:08PM [facility] 0539 - CT CHEST W [...] nodules measuring less than 0.5 cm, with kiosk sales representative examples detailed as follows on series [...] No abnormality in the imaged upper abdomen. Waterworks Operator (topogram) images: No additional findings. DIVISION OF RADIOLOGY Provider, [facility] - 09/13/2021 * * *Final Report* * * DATE OF EXAM: Sep 13 2021 3:08PM [facility] 0539 - CT CHEST W [...] nodules measuring less than 0.5 cm, with kiosk sales representative examples detailed as follows on series [...] No abnormality in the imaged upper abdomen. Waterworks Operator (topogram) images: No additional findings. IMPRESSION [...] any questions regarding this interpretation, please call [phone]. If you are unable to reach us at the number above, please feel free to contact [facility] eRadiology at [phone]. [facility] Radiology Study observation (narrative) [facility] CT Chest W contrast IVOrdere d By: [facility] Provider on 09-13-2021 [facility] C [place] 12-23-2018 Wound Culture Microbiology PROCEDURE: Wound Culture [R1] SOURCE: Abscess BODY SITE: Anus COLLECTED DATE/TIME: 12/17/2018 16:12 EDT RECEIVED DATE/TIME: 12/18/2018 18:51 EDT START DATE/TIME: 12/18/2018 18:51 EDT FREE TEXT SOURCE: STEPHANIE YOUNG, Wilson Wilson HELMS MD FINAL REPORTS Final Report [] Verified Date/Time: [...] Locations R1: This test was performed at: [facility], [address] [place] [address], [id number] , [facility] Comment on above: Performed By: #### [id number] #### [facility] [address] [place] [id number] Coding Summary.on 12-23-2018 Coding Summary. CODING DATE: 019 FINAL [facility] STATUS: Home (Routine DC) PAYOR: Medicare [...] Tim CphT Date Saved: 12/23/2018 01:25 pm [facility] Vital Signs Date Time Vital Sign Value Performing Clinician Facility 08-19-2024 13:26-0500 Body height 182.9 cm Carmela Fernandes MD Work Phone: [facility] 08-19-2024 13:26-0500 Body mass index (BMI) [Ratio] 23.06 kg/m2 Carmela Fernandes MD Work Phone: [facility] 08-19-2024 13:26-0500 Body weight 77.11 kg Carmela Fernandes MD Work Phone: [facility] 08-19-2024 13:26-0500 Diastolic blood pressure 56 mm[Hg] Carmela Fernandes MD Work Phone: [facility] 08-19-2024 13:26-0500 Heart rate 78 /min Carmela Fernandes MD Work Phone: [facility] 08-19-2024 13:26-0500 SaO2% (BldA) [Mass fraction] 97 % Carmela Fernandes MD Work Phone: [facility] Comment on above: RA 08-19-2024 13:26-0500 Systolic blood pressure 94 mm[Hg] Carmela Howell Work Phone: [facility] 08-19-2024 10:19-0500 Body height 182.9 cm Nj Wei MD Work Phone: [facility] 08-19-2024 10:19-0500 Body mass index (BMI) [Ratio] 23.06 kg/m2 Nj Wei MD Work Phone: [facility] 08-19-2024 10:19-0500 Body weight 77.11 kg Nj Wei MD Work Phone: [facility] 08-19-2024 10:19-0500 Diastolic blood pressure 56 mm[Hg] Nj otero MD Work Phone: [facility] 08-19-2024 10:19-0500 Heart rate 80 /min Nj Wei MD Work Phone: [facility] 08-19-2024 10:19-0500 Systolic blood pressure 108 mm[Hg] Nj Wei MD Work Phone: [facility] 03-31-2024 13:09-0400 Body mass index (BMI) [Ratio] 21.44 kg/m2 ARACELI Andrade MD Work Phone: [facility] 03-31-2024 13:09-0400 Body temperature 97.3 [degF] ARACELI Andrade MD Work Phone: [facility] 03-31-2024 13:09-0400 Body weight 79.9 kg ARACELI Andrade MD Work Phone: [facility] 03-31-2024 13:09-0400 Diastolic blood pressure 70 mm[Hg] ARACELI Andrade MD Work Phone: [facility] 03-31-2024 13:09-0400 Heart rate 67 /min ARACELI Andrade MD Work Phone: [facility] 03-31-2024 13:09-0400 Respiratory rate 16 /min ARACELI Andrade MD Work Phone: [facility] 03-31-2024 13:09-0400 SaO2% (BldA) [Mass fraction] 97 % ARACELI Andrade MD Work Phone: [facility] 03-31-2024 13:09-0400 Systolic blood pressure 115 mm[Hg] ARACELI Andrade MD Work Phone: [facility] 03-30-2024 14:56-0400 Body height 193 cm Jethro Brady MD Work Phone: [facility] 03-30-2024 14:56-0400 Body mass index (BMI) [Ratio] 20.69 kg/m2 Jethro Brady MD Work Phone: [facility] 03-30-2024 14:56-0400 Body weight 77.11 kg Jethro Brady MD Work Phone: [facility] 03-30-2024 14:56-0400 Diastolic blood pressure 69 mm[Hg] Jetrho Brady MD Work Phone: [facility] 03-30-2024 14:56-0400 Heart rate 66 /min Jethro Brady MD Work Phone: [facility] 03-30-2024 14:56-0400 Systolic blood pressure 125 mm[Hg] Jethro Brady MD Work Phone: [facility] 03-04-2024 11:15-0400 SaO2% (BldA) [Mass fraction] 99 % FUENTES WHEAT [facility] Comment on above: Order Comment: Specimen Type: ARTERIAL B LOOD SPECIMENOrdering Facility: [facility] Address: [address] [place] [id number] Performed By: #### A LLMG ####[facility] [id number] [address] [place] 01-10-2024 10:58-0400 Diastolic blood pressure 78 mm[Hg] ARACELI Fernandes MD Work Phone: [facility] 01-10-2024 10:58-0400 Systolic blood pressure 122 mm[Hg] ARACELI Fernandes MD Work Phone: [facility] 01-10-2024 10:55-0400 Body height 182.9 cm ARACELI Fernandes MD Work Phone: [facility] 01-10-2024 10:55-0400 Body mass index (BMI) [Ratio] 22.51 kg/m2 ARACELI Fernandes MD Work Phone: [facility] 01-10-2024 10:55-0400 Body weight 75.3 kg ARACELI Fernandes MD Work Phone: [facility] 01-10-2024 10:55-0400 Heart rate 88 /min ARACELI Fernandes MD Work Phone: [facility] 01-10-2024 10:55-0400 Respiratory rate 14 /min ARACELI Fernandes MD Work Phone: [facility] 01-10-2024 10:55-0400 SaO2% (BldA) [Mass fraction] 97 % ARACELI Fernandes MD Work Phone: [facility] 12-26-2023 12:00-0400 Body height 182.9 cm Jethro Brady MD Work Phone: [facility] 12-26-2023 12:00-0400 Body weight 77.11 kg Jethro Brady MD Work Phone: [facility] 12-26-2023 12:00-0400 Diastolic blood pressure 64 mm[Hg] Jethro Brady MD Work Phone: [facility] 12-26-2023 12:00-0400 Heart rate 78 /min Jethro Brady MD Work Phone: [facility] 12-26-2023 12:00-0400 Respiratory rate 12 /min Jethro Brady MD Work Phone: [facility] 12-26-2023 12:00-0400 SaO2% (BldA) [Mass fraction] 97 % Jethro Brady MD Work Phone: [facility] 12-26-2023 12:00-0400 Systolic blood pressure 128 mm[Hg] Jethro Brady MD Work Phone: [facility] 12-12-2023 13:38-0400 Body height 182.9 cm Carmelina Mayor KNIFE BLADE POLISHER.EDISCOVERY PROJECT MANAGER Work Phone: [facility] 12-12-2023 13:38-0400 Body weight 75.3 kg Carmelina Mayor KNIFE BLADE POLISHER.EDISCOVERY PROJECT MANAGER Work Phone: [facility] 12-12-2023 13:38-0400 Diastolic blood pressure 76 mm[Hg] Carmelina Mayor KNIFE BLADE POLISHER.EDISCOVERY PROJECT MANAGER Work Phone: [facility] 12-12-2023 13:38-0400 Heart rate 81 /min Carmelina Mayor KNIFE BLADE POLISHER.EDISCOVERY PROJECT MANAGER Work Phone: [facility] 12-12-2023 13:38-0400 Respiratory rate 18 /min Carmelina Mayor KNIFE BLADE POLISHER.EDISCOVERY PROJECT MANAGER Work Phone: [facility] 12-12-2023 13:38-0400 SaO2% (BldA) [Mass fraction] 97 % Carmelina Mayor KNIFE BLADE POLISHER.EDISCOVERY PROJECT MANAGER Work Phone: [facility] 12-12-2023 13:38-0400 Systolic blood pressure 117 mm[Hg] Carmelina Mayor KNIFE BLADE POLISHER.EDISCOVERY PROJECT MANAGER Work Phone: [facility] 10-29-2023 11:24-0500 Body height 182.9 cm Virgil Carrillo MD Work Phone: [facility] 10-29-2023 11:24-0500 Body weight 80.29 kg Virgil Carrillo MD Work Phone: [facility] 10-29-2023 11:24-0500 Diastolic blood pressure 62 mm[Hg] Virgil Carrillo MD Work Phone: [facility] 10-29-2023 11:24-0500 Heart rate 72 /min Virgil Carrillo MD Work Phone: [facility] 10-29-2023 11:24-0500 Respiratory rate 12 /min Virgil Carrillo MD Work Phone: [facility] 10-29-2023 11:24-0500 SaO2% (BldA) [Mass fraction] 98 % Virgil Carrillo MD Work Phone: [facility] 10-29-2023 11:24-0500 Systolic blood pressure 108 mm[Hg] Virgil aCrrillo MD Work Phone: [facility] 04-26-2023 15:08-0400 Body height 182.9 cm Zahra Pierre MD Work Phone: [facility] 04-26-2023 15:08-0400 Body weight 83.92 kg Zahra Pierre MD Work Phone: [facility] 04-26-2023 15:08-0400 Diastolic blood pressure 62 mm[Hg] Zahra Pierre MD Work Phone: [facility] 04-26-2023 15:08-0400 Heart rate 73 /min Zahra Pierre MD Work Phone: [facility] 04-26-2023 15:08-0400 Respiratory rate 12 /min Zahra Pierre MD Work Phone: [facility] 04-26-2023 15:08-0400 SaO2% (BldA) [Mass fraction] 98 % Zahra Pierre MD Work Phone: [facility] 04-26-2023 15:08-0400 Systolic blood pressure 116 mm[Hg] Zahra Pierre MD Work Phone: [facility] 10-25-2022 15:44-0500 Body height 182.9 cm Zahra Pierre MD Work Phone: [facility] 10-25-2022 15:44-0500 Body weight 83.92 kg Zahra Pierre MD Work Phone: [facility] 10-25-2022 15:44-0500 Diastolic blood pressure 66 mm[Hg] Zahra Pierre MD Work Phone: [facility] 10-25-2022 15:44-0500 Heart rate 74 /min Zahra Pierre MD Work Phone: [facility] 10-25-2022 15:44-0500 SaO2% (BldA) [Mass fraction] 98 % Zahra Pierre MD Work Phone: [facility] 10-25-2022 15:44-0500 Systolic blood pressure 116 mm[Hg] Zahra Pierre MD Work Phone: [facility] 10-02-2022 13:10-0500 Body temperature 96.69 [degF] ARACELI Andrade MD Work Phone: [facility] 10-02-2022 13:10-0500 Body weight 86.18 kg ARACELI Andrade MD Work Phone: [facility] 10-02-2022 13:10-0500 Diastolic blood pressure 71 mm[Hg] ARACELI Andrade MD Work Phone: [facility] 10-02-2022 13:10-0500 Heart rate 66 /min ARACELI Andrade MD Work Phone: [facility] 10-02-2022 13:10-0500 Respiratory rate 18 /min ARACELI Andrade MD Work Phone: [facility] 10-02-2022 13:10-0500 SaO2% (BldA) [Mass fraction] 98 % ARACELI Andrade MD Work Phone: [facility] 10-02-2022 13:10-0500 Systolic blood pressure 113 mm[Hg] ARACELI Andrade MD Work Phone: [facility] 09-03-2022 11:35-0500 Body height 182.9 cm John Jefferson MD Work Phone: [facility] 09-03-2022 11:35-0500 Body temperature 97.9 [degF] John Jefferson MD Work Phone: [facility] 09-03-2022 11:35-0500 Body weight 84.01 kg John Jefferson MD Work Phone: [facility] 09-03-2022 11:35-0500 Diastolic blood pressure 78 mm[Hg] John Jefferson MD Work Phone: [facility] 09-03-2022 11:35-0500 Heart rate 82 /min John Jefferson MD Work Phone: [facility] 09-03-2022 11:35-0500 Respiratory rate 18 /min John Jefferson MD Work Phone: [facility] 09-03-2022 11:35-0500 SaO2% (BldA) [Mass fraction] 98 % John Jefferson MD Work Phone: [facility] 09-03-2022 11:35-0500 Systolic blood pressure 133 mm[Hg] John Jefferson MD Work Phone: [facility] 06-06-2022 14:32-0400 Body height 182.9 cm Zahra Pierre MD Work Phone: [facility] 06-06-2022 14:32-0400 Body weight 76.66 kg Zahra Pierre MD Work Phone: [facility] 06-06-2022 14:32-0400 Diastolic blood pressure 63 mm[Hg] Zahra Pierre MD Work Phone: [facility] 06-06-2022 14:32-0400 Heart rate 71 /min Zahra Pierre MD Work Phone: [facility] 06-06-2022 14:32-0400 SaO2% (BldA) [Mass fraction] 97 % Zahra Pierre MD Work Phone: [facility] 06-06-2022 14:32-0400 Systolic blood pressure 101 mm[Hg] Zahra Pierre MD Work Phone: [facility] 12-11-2021 13:58-0400 Body temperature 97.11 [degF] ARACELI Andrade MD Work Phone: [facility] 12-11-2021 13:58-0400 Body weight 82.1 kg NA Raymond YOUNG Work Phone: [facility] 12-11-2021 13:58-0400 Diastolic blood pressure 78 mm[Hg] ARACELI Andrade MD Work Phone: [facility] 12-11-2021 13:58-0400 Heart rate 80 /min ARACELI Andrade MD Work Phone: [facility] 12-11-2021 13:58-0400 Respiratory rate 18 /min ARACELI Andrade MD Work Phone: [facility] 12-11-2021 13:58-0400 SaO2% (BldA) [Mass fraction] 99 % ARACELI Andrade MD Work Phone: [facility] 12-11-2021 13:58-0400 Systolic blood pressure 130 mm[Hg] ARACELI Andrade MD Work Phone: [facility] Encounters Encounter Date Encounter Type Care Provider Facility Start: 11-18-2024 End: 11-18-2024 ambulatory [facility] Sincere SANDERS [facility] Start: 10-17-2024 End: 11-04-2024 Subsequent hospital visit by physician Dirk Sanders DO Work Phone: [facility] Start: 10-16-2024 Evaluation and management of inpatient [facility] Start: 10-14-2024 Evaluation and management of inpatient [facility] Start: 10-08-2024 End: 10-08-2024 Telephone encounter Nj Wei MD Work Phone: Cardiology Comment on above: Medication Problem Start: 10-07-2024 End: 10-07-2024 Telephone encounter Nj Wei MD Work Phone: Cardiology Comment on above: Patient Question Start: 10-02-2024 [facility] Start: 09-30-[facility]24 Evaluation and management of inpatient HARI IVANIA [facility] Start: 09-29-2024 Evaluation and management of inpatient HARI IVANIA [facility] Start: 09-29-2024 End: 09-29-2024 ambulatory Carmela Fernandes MD Work Phone: Cardiology Comment on above: Medication questions , possible Norovirus Start: 09-29-2024 Emergency department patient visit JOSÉ MIGUEL HOWARD [facility] Start: 09-29-2024 End: 10-17-2024 Evaluation and management of inpatient HARI IVANIA [facility] Start: 09-22-2024 End: 09-22-2024 Evaluation and management of inpatient [place] DEVEN Facility:[facility] Start: 09-22-2024 End: 09-22-2024 Evaluation and management of inpatient [place] DEVEN Facility:[facility] Start: 09-21-2024 End: 09-21-2024 Evaluation and management of inpatient Fuentes Wheat DO Work Phone: Cardiology Start: 09-18-2024 End: 09-18-2024 Evaluation and management of inpatient [facility] Work Phone: Cardiology Start: 09-17-2024 End: 09-25-2024 Evaluation and management of inpatient SAMM M HOHerman Facility:[facility] Start: 09-17-2024 End: 09-17-2024 Telephone encounter Alta Dempsey RN Cardiology Comment on above: Ventricular Tachycar ben Start: 09-17-[address] M HOY [facility] Start: 09-10-2024 End: 09-10-2024 ambulatory SAMM M HOY Facility:[facility] Start: 09-10-2024 End: 09-11-2024 Telephone encounter Carmela Fernandes MD Work Phone: Cardiology Comment on above: Advice Only Start: 09-07-2024 End: 09-07-2024 Telephone encounter Nj Wei MD Work Phone: Cardiology Comment on above: Patient Update Start: 09-03-2024 End: 09-03-2024 Telephone encounter Nj Wei MD Work Phone: Cardiology Start: 08-31-2024 End: 08-31-2024 ambulatory CARMELA FERNANDES Facility:[facility] Start: 08-28-2024 End: 08-28-2024 Telephone encounter Nj [...] acute systolic (HCC); 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); Carotid stenosis, 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, left; 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; Acute on chronic systolic congestive heart failure (HCC); S/P CABG (coronary artery bypass graft); Paroxysmal atrial fibrillation (HCC) Amaurosis fugax (Ami sandeep Dx); Heart failure, acute systolic (HCC); Acute on chronic systolic congestive heart failure (HCC); PVD (peripheral vascular disease) (HCC); S/P CABG (coronary artery bypass graft) Start: 08-19-2024 ambulatory NJ WEI Facili ty:[facility] Start: 08-19-2024 End: 08-19-2024 Subsequent hospital visit by physician [facility] Work Phone: Cardiology Comment on above: Pacemaker reprogramm ing/check [Z45.018] Start: 08-19-2024 End: 08-19-2024 ambulatory [facility] Work Phone: Cardiology Comment on above: Holter Monitor Appli cation (12-lead 48-HR) Start: 08-18-2024 End: 08-18-2024 Orders Only Luís Skinner APRNTitusEDISCOVERY PROJECT MANAGER Work Phone: Neurology [facility] Comment on above: Carotid stenosis, sy [...] End: 07-23-2024 Evaluation and management of inpatient [facility] Facility:[facility] Start: 07-21-2024 End: 07-26-2024 Evaluation and management of inpatient [facility] Facility:[facility] Start: 07-21-2024 End: 07-21-2024 ambulatory Carmela Fernandes MD Work Phone: Cardiology Comment on above: labs - urgent Start: 07-15-2024 ambulatory UNKNOWN PHYSICIAN [facility] Start: 07-13-2024 ambulatory UNKNOWN PHYSICIAN [facility] Start: 07-09-2024 End: 07-09-[address] [facility] Start: 07-08-2024 End: 07-08-2024 ambulatory UNKNOWN PHYSICIAN [facility] Start: 07-06-2024 End: 07-06-[address] [facility] Start: 07-02-2024 End: 07-02-2024 ambulatory UNKNOWN PHYSICIAN [facility] Start: 07-01-2024 End: 07-01-2024 ambulatory UNKNOWN PHYSICIAN [facility] Start: 06-29-2024 End: 06-29-2024 ambulatory UNKNOWN PHYSICIAN [facility] Start: 06-25-2024 End: 06-25-[address] [facility] Start: 06-24-2024 End: 06-24-2024 ambulatory [facility] PHYSICIAN [facility] Comment on above: S/P AVR (aortic valv e replacement) Start: 06-23-2024 End: 06-23-[address] [facility] Start: 06-19-2024 End: 06-19-2024 Refill Carmela Fernandes MD Work Phone: Cardiology Comment on above: Rx Refills Start: 06-15-2024 End: 06-16-2024 Refill Carmela Fernandes MD Work Phone: Cardiology Comment on above: Rx Refills Start: 06-10-2024 End: 06-10-2024 Refill Sandrine Arteaga MD Work Phone: [id number] Comment on above: Refill Request Start: 06-02-2024 [...] above: Follow Up Start: 05-14-2024 End: 05-17-2024 [facility] Start: 05-13-2024 End: 05-17-2024 ambulatory [facility] Start: 05-11-2024 End: 05-17-2024 ambulatory [facility] Start: 05-09-2024 End: 05-16-2024 Evaluation and management of inpatient JAMIE HEREDIA Facility:[facility] Start: 05-06-2024 End: 05-09-2024 Evaluation and management of inpatient CHERYL LEES Facility:[facility] Start: 05-06-2024 End: 05-17-2024 ambulatory [facility] Start: 05-06-2024 End: 05-08-2024 Telephone encounter Dorcas Fernandes MD Work Phone: Cardiology Comment on above: Follow Up Start: 05-06-2024 End: 05-17-2024 [facility] Start: 05-04-2024 End: 05-17-2024 [facility] Start: 04-30-2024 ambulatory Allyn Katz RN [facility] Start: 04-30-2024 Patient encounter procedure Allyn Katz RN [facility] Start: 04-29-2024 End: 05-17-2024 ambulatory Allyn Katz RN [facility] Start: 04-29-2024 End: 04-29-2024 Patient encounter procedure Allyn Katz RN [facility] Start: 04-27-2024 End: 04-27-2024 [facility] Start: 04-23-2024 End: 05-17-2024 [facility] Start: 04-22-2024 End: 05-17-2024 ambulatory [facility] Start: 04-20-2024 End: 04-20-2024 ambulatory [facility] M [facility] Start: 04-16-2024 End: 04-16-2024 ambulatory BRONX Dorcas Herman [facility] Start: 04-15-2024 End: 04-15-2024 [facility] Start: 04-13-2024 End: 04-13-2024 ambulatory SAMM M Herman [facility] Start: 04-09-2024 End: 04-09-2024 ambulatory SAMM M Herman [facility] Start: 04-08-2024 End: 04-16-2024 ambulatory [facility] Start: 04-06-2024 End: 04-06-2024 ambulatory CARMELA DOM Facility:[facility] Start: 04-06-2024 End: 04-16-2024 ambulatory [facility] Start: 04-03-2024 Telephone encounter Luís warner APRN.CNP Work Phone: [facility] Comment on above: Medication Problem Start: 04-01-2024 End: 04-01-2024 Telephone encounter Crys SHEEHAN Hematology/Oncology Start: 04-01-2024 End: 04-16-2024 ambulatory [facility] Start: 03-31-2024 End: 03-31-2024 Telemedicine consultation with patient Dorcas Fernandes MD Work Phone: Cardiology Start: 03-31-2024 End: 03-31-2024 ambulatory Dorcas Fernandes MD Work Phone: Cardiology Comment on above: 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coronary bypass graft of pechanga heart without angina pectoris (Primary Dx); Chronic systolic heart failure (HCC); S/P CABG (coronary artery bypass graft); Non-rheumatic mitral regurgitation; Severe mitral regurgitation Start: 03-31-2024 End: 03-31-2024 Patient encounter anshul Andrade MD Work Phone: Radiation Oncology Comment on above: History of prostate cancer (Primary Dx) Start: 03-30-2024 End: 03-30-2024 ambulatory [facility] Facility:[facility] Start: 03-30-2024 End: 03-30-2024 ambulatory [facility] Facility:[facility] Start: 03-30-2024 End: 03-30-2024 Patient encounter procedure Jethro Brady MD Work Phone: Cardiology Comment on above: Cardiomyopathy, isch emic (Primary Dx); S/P mitral valve clip implantation; Stage 3b chronic kidney disease (HCC) Start: 03-30-2024 Telephone encounter Jethro Brady MD Work Phone: Cardiology Comment on above: Medication Assistanc e Program Start: 03-30-2024 End: 03-30-2024 [facility] Facility:[facility] Start: 03-30-2024 End: 04-16-2024 ambulatory [facility] Start: 03-26-2024 End: 03-26-2024 ambulatory [facility] Comment on above: Arrived Start: 03-25-2024 End: 03-25-2024 ambulatory [facility] Comment on above: Arrived Start: 03-24-2024 End: 03-24-2024 ambulatory [facility] Facility:[facility] Start: 03-23-2024 End: 03-23-2024 ambulatory [facility] Start: 03-18-2024 End: 03-18-2024 ambulatory Luís Skinner ANAND.EDISCOVERY PROJECT MANAGER Work Phone: Neurology [facility] Comment on above: Amaurosis fugax (Ami sandeep Dx); Carotid stenosis, 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, left; Atrial fibrillation, unspecified type (HCC); Mixed hyperlipidemia; Essential hypertension Start: 03-18-2024 End: 03-18-2024 Telemedicine consultation with patient Luís Skinner APRNathenEDISCOVERY PROJECT MANAGER Work Phone: Neurology [facility] Start: 03-06-2024 ambulatory Gavi Childress MD Work Phone: [facility] Start: 03-05-2024 End: 03-05-2024 Evaluation and management of inpatient GAVI CHILDRESS Facility:[facility] Start: 03-03-2024 End: 03-03-2024 Evaluation and management of inpatient GAVI Larry FOX Facility:[facility] Start: 03-02-2024 End: 03-02-2024 Evaluation and management of inpatient Susi Whitehead OD Work Phone: Ophthalmology Comment on above: Cerebrovascular acci 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) (Primary Dx); Cataract, nuclear sclerotic senile, bilateral Start: 03-02-2024 End: 03-02-2024 ambulatory ZAHRA M[facility] Start: 03-01-2024 Evaluation and management of inpatient JEANINE MILLARD Facility:[facility] Start: 02-28-2024 Telephone encounter Neurology [facility] Comment on above: Patient Update (Pre admission ) Start: 02-27-2024 Chart abstracting Aravind Arriaga MD Work Phone: Neurosurgery Comment on above: Amaurosis fugax Start: 02-27-2024 Telephone encounter Shannon Mcnair APRN.EDISCOVERY PROJECT MANAGER Work Phone: Cardiothoracic Comment on above: Patient Update Start: 02-26-2024 End: 03-01-2024 Emergency department patient visit [facility] Start: 2024 End: 2024 Evaluation and management of inpatient ISREAL PEREIRA Facility:[facility] Start: 02-17-2024 End: 02-17-2024 Evaluation and management of inpatient Isreal Pereira MD Work Phone: Dentistry Comment on above: Dental caries (Prima ry Dx); Pre-operative clearance; Non-rheumatic mitral regurgitation; Severe mitral regurgitation Start: 02-17-2024 End: 02-17-2024 Preoperative state Isreal Pereira MD Work Phone: [facility] Work Phone: Start: 02-17-2024 End: 02-17-2024 Orders Only Zuleyma Tineo KNIFE BLADE POLISHER.EDISCOVERY PROJECT MANAGER Work Phone: Cardiology Comment on above: Atherosclerotic hear t disease of pechanga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) (Primary Dx) Start: 02-17-2024 End: 03-16-2024 ambulatory [facility] Start: 02-15-2024 End: 2024 Evaluation and management of inpatient ISREAL PEREIRA Facility:[facility] Start: 02-14-2024 ambulatory [facility] Work Phone: Cardiology Comment on above: M-AZAEL MitraClrolo [facility] Start: 02-13-2024 End: 02-13-2024 ambulatory Priscilla K Garry KNIFE BLADE POLISHER.EDISCOVERY PROJECT MANAGER Work Phone: Cardiology Comment on above: TMTT Meeting 02/13 Start: 02-13-2024 End: 02-15-2024 ambulatory Fuentes Arana KNIFE BLADE POLISHER.CEMENT WORKER Work Phone: Cardiology Start: 02-12-2024 Telephone encounter Fuentes truong KNIFE BLADE POLISHER.CEMENT WORKER Work Phone: Cardiology Comment on above: Patient Update Start: 02-12-2024 End: 02-15-2024 ambulatory [facility] Start: 02-11-2024 Telephone encounter [facility] Work Phone: Cardiology Start: 02-05-2024 End: 02-05-2024 Nursing evaluation of patient and report [facility] Work Phone: Cardiology Comment on above: EMPOWER Trial IRB# 1 8-600 Screening visit (Primary Dx) Start: 02-05-2024 End: 02-15-2024 ambulatory [facility] Start: 02-05-2024 End: 02-05-2024 Patient encounter procedure [facility] Work Phone: [facility] Start: 02-05-2024 End: 02-15-2024 ambulatory [facility] Start: 02-03-2024 End: 02-03-2024 ambulatory SAMM Gallardo HOY [facility] Start: 01-30-2024 End: 01-30-2024 Nursing evaluation of patient and report [facility] Work Phone: Cardiology Comment on above: 18-600 Empower Study (Primary Dx) Severe mitral regurg itation (Primary Dx); Examination of participant in clinical trial; SANTILLAN (dyspnea on exertion) Start: 01-30-2024 Patient encounter procedure Andrés Savage MD Work Phone: [facility] Start: 01-30-2024 End: 01-30-2024 ambulatory SAMM Gallardo HOY [facility] Start: 01-30-2024 Encounter for examination for normal comparison and control in clinical research program FUENTES FATOUMELISSA [facility] Start: 01-30-2024 End: 01-30-2024 Patient entered into trial [facility] Work Phone: [facility] Start: 01-29-2024 End: 01-29-2024 ambulatory SAMM Gallardo HOY [facility] Start: 01-28-2024 Orders Only Virgil Howell Work Phone: Cardiology Comment on above: Severe mitral regurg itation (Primary Dx); Status post implantation of mitral valve leaflet clip Start: 01-27-2024 End: 01-27-2024 ambulatory SAMM Gallardo HOY [facility] Start: 01-23-2024 End: 01-23-2024 ambulatory SAMM Gallardo HOY [facility] Start: 01-22-2024 End: 01-22-2024 ambulatory SAMM Gallardo HOY [facility] Start: 01-20-2024 End: 01-20-2024 ambulatory SAMM Gallardo HOY [facility] Start: 01-16-2024 End: 01-16-2024 ambulatory SAMM Gallardo HOY [facility] Start: 01-15-2024 End: 01-15-2024 ambulatory SAMM Gallardo HOY [facility] Start: 01-14-2024 Telephone encounter Dorcas Fernandes MD Work Phone: Cardiology Comment on above: Medication Question (Patient is asking if after reviewing labs are there any medication changes?) Start: 01-13-2024 End: 01-13-2024 ambulatory [facility] Start: 01-10-2024 End: 01-10-2024 [facility] Facility:[facility] Start: 01-10-2024 End: 01-10-2024 Nursing evaluation of patient and report [facility] Work Phone: Cardiology Comment on above: IRB 18-600 Empower A ssessment of the CARILLON Mitral Contour System in Treating Functional Mitral Regurgitation Associated with Heart Failure PI: Hussein (Primary Dx) Start: 01-10-2024 End: 01-10-2024 Patient entered into trial [facility] Work Phone: [facility] Start: 01-10-2024 End: 01-10-2024 [facility] Facility:[facility] Start: 01-10-2024 End: 01-10-2024 Patient encounter procedure Dorcas Fernandes MD Work Phone: Cardiology Comment on above: Atherosclerotic hear t disease of pechanga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) (Primary Dx); Coronary artery disease involving coronary bypass graft of pechanga heart with angina pectoris (HCC); Chronic systolic heart failure (HCC); S/P CABG (coronary artery bypass graft); Chronic 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); Acute on chronic clinical systolic heart failure (HCC); Stage 3b chronic kidney disease (HCC); Ischemic cardiomyopathy; Non-ischemic cardiomyopathy (HCC); Shortness of breath; Unspecified severe protein-calorie malnutrition (HCC) Start: 01-09-2024 End: 01-09-2024 ambulatory [facility] Start: 01-08-2024 End: 01-08-2024 ambulatory [facility] Start: 01-06-2024 End: 01-06-2024 ambulatory [facility] Start: 01-02-2024 End: 01-02-2024 Nursing evaluation of patient and report [facility] Work Phone: Cardiology Comment on above: IRB 18-600 Empower A ssessment of the CARILLON Mitral Contour System in Treating Functional Mitral Regurgitation Associated with Heart Failure PI: Hussein (Primary Dx) Start: 01-02-2024 End: 01-02-2024 Patient entered into trial [facility] Work Phone: [facility] Start: 01-02-2024 End: 01-02-2024 [facility] Start: 01-02-2024 Telephone encounter Research N urse [facility] Work Phone: Cardiology Comment on above: Appointment; Patient Update Start: 01-02-2024 End: 01-02-2024 [facility] Start: 01-01-2024 End: 01-01-2024 ambulatory [facility] Start: 01-01-2024 End: 01-01-2024 Nursing evaluation of patient and report [facility] Work Phone: Cardiology Comment on above: Study name: EMPOWER Trial IRB# 18-600 (Primary Dx) Start: 01-01-2024 End: 01-01-2024 Patient entered into trial [facility] Work Phone: [facility] Start: 12-30-2023 End: 12-30-2023 ambulatory [facility] Start: 12-30-2023 End: 12-30-2023 Nursing evaluation of patient and report [facility] Work Phone: Cardiology Comment on above: IRB 18-600 Empower A ssessment of the CARILLON Mitral Contour System in Treating Functional Mitral Regurgitation Associated with Heart Failure PI: Hussein (Primary Dx) Start: 12-30-2023 End: 12-30-2023 Patient entered into trial Research Nurse Card Intervention [place] Work Phone: [facility] Start: 12-26-2023 End: 12-26-2023 ambulatory Kristina Ceja KNIFE BLADE POLISHER.EDISCOVERY PROJECT MANAGER Work Phone: Cardiology Comment on above: TMTT Meeting Start: 12-26-2023 End: 12-26-2023 Patient encounter procedure Jethro Brady MD Work Phone: Cardiology Comment on above: Severe mitral regurg itation (Primary Dx); Cardiomyopathy, ischemic; S/P CABG (coronary artery bypass graft); Sore throat; Unspecified severe protein-calorie malnutrition (HCC) Start: 12-25-2023 End: 01-15-2024 ambulatory [facility] Start: 12-25-2023 End: 01-15-2024 ambulatory [facility] Start: 12-22-2023 Follow-up encounter Rubén Carney ba, MD Work Phone: [facility] Start: 12-22-2023 ICD Remote F/U Rubén Howell Work Phone: [facility] Department Start: 12-19-2023 End: 12-19-2023 ambulatory [facility] Start: 12-17-2023 Telephone encounter Virgil Pacheco nd, MD Work Phone: Cardiology Comment on above: Cardiac Rehab Start: 12-17-2023 End: 12-17-2023 ambulatory [facility] Start: 12-12-2023 End: 12-12-2023 Patient encounter procedure Carmelina Ramos KNIFE BLADE POLISHER.EDISCOVERY PROJECT MANAGER Work Phone: Cardiology Comment on above: Mitral valve insuffi ciency, unspecified etiology (Primary Dx); HFrEF (heart failure with reduced ejection fraction) ([facility]); SOB (shortness of breath); Hx of CABG; 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; Essential hypertension Start: 12-12-2023 End: 12-12-2023 ambulatory CARMELINA CHARLESR Facility:[facility] Start: 12-02-2023 End: 12-02-2023 ambulatory [facility] Start: 11-26-2023 Telephone encounter Virgil Pacheco nd, MD Work Phone: Cardiology Comment on above: Patient Update Atherosclerosis of n ative coronary artery, unspecified whether angina present, unspecified whether pechanga or transplanted heart (Primary Dx) Start: 11-25-2023 Follow-up encounter Rubén Carney ba, MD Work Phone: [facility] Start: 11-25-2023 ICD Remote F/U Rubén Howell Work Phone: [facility] Department Start: 11-22-2023 Evaluation and management of inpatient CHARU MARTIN [facility] Start: 11-21-2023 Evaluation and management [facility] Start: 11-19-2023 End: 11-25-2023 Evaluation and management of inpatient RAMA [facility] Start: 11-18-2023 End: 11-18-2023 ambulatory [facility] Start: 10-29-2023 End: 10-29-2023 Patient encounter procedure Virgil Carrillo MD Work Phone: Cardiology Comment on above: Chronic combined sys tolic and diastolic congestive heart failure (HCC) (Primary Dx); 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; Essential hypertension; Hx of CABG; Mixed hyperlipidemia; Systolic heart failure, unspecified HF chronicity (HCC); 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 kidney disease, unspecified CKD stage, unspecified whether mcc insulin use (HCC); PVD (peripheral vascular disease) (HCC); 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); Mitral valve insufficiency, unspecified etiology Start: 10-29-2023 End: 10-29-2023 ambulatory VIRGIL CARRILLO Facility:[facility] Start: 10-29-2023 Encounter for preprocedural cardiovascular examination FUENTES NEVAEH [facility] Start: 10-22-2023 End: 10-22-2023 ambulatory [facility] Start: 08-27-2023 Telephone encounter Virgil Pacheco [...] kidney disease, unspecified CKD stage, unspecified whether mcc insulin use (HCC) (Primary Dx); PVD (peripheral vascular disease) (HCC); 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 Start: 02-21-2023 ICD Remote F/U Rubén Howell Work Phone: [facility] Department Start: 02-08-2023 End: 02-09-[address] DOCTOR CARRIZALES Facility: Start: 12-03-2022 Orders Only Zahra Pierre MD Work Phone: Cardiology Start: 11-29-2022 Patient encounter procedure John Jefferson MD Work Phone: Vascular Surg Dept Start: 11-29-2022 Telephone encounter John carrillo MD Work Phone: Vascular Surg Dept Comment on above: Surgery Cancelled Start: 11-06-2022 Follow-up encounter Rubén Carney ba, MD Work Phone: [facility] Start: 11-06-2022 ICD Remote F/U Rubén Howell Work Phone: [facility] Department Start: 10-31-2022 Telephone encounter John carrillo MD Work Phone: Vascular Surg Dept Comment on above: Appointment Start: 10-25-2022 End: 10-25-2022 Patient encounter procedure Zahra Pierre MD Work Phone: Cardiology Comment on above: 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pechanga coronary artery of pechanga heart without angina pectoris (Primary Dx); Heart failure, acute systolic (HCC) Start: 10-25-2022 End: 10-25-2022 Subsequent hospital visit by physician [facility] Comment on above: Chronic systolic hea rt failure (HCC) [I50.22] Start: 10-02-2022 End: 10-02-2022 Patient encounter procedure Yung Andrade MD Work Phone: Radiation Oncology Comment on above: Malignant neoplasm o f prostate (HCC) (Primary Dx) Start: 09-18-2022 End: 12-31-2022 ambulatory [facility] Facility:[facility] Start: 09-12-2022 End: 09-13-[address] MALAIKA ANDRADE Facility:[facility] Start: 09-07-2022 Telephone encounter Zahra mata MD Work Phone: Cardiology Comment on above: Nm Pet Request Start: 09-06-2022 Orders Only Zahra Pierre MD Work Phone: Cardiology Comment on above: Chronic systolic hea rt failure (HCC) (Primary Dx); 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 Start: 09-03-2022 End: 09-03-2022 Patient encounter procedure John Jefferson MD Work Phone: Vascular Surg Dept Comment on above: 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pechanga coronary artery of pechanga heart without angina pectoris (Primary Dx); Heart failure, acute systolic (HCC); Mixed hyperlipidemia; Stenosis of left carotid artery; Cerebrovascular acci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); Chronic 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); Carotid stenosis, asymptomatic, bilateral Start: 08-30-2022 End: 08-31-2022 ambulatory [facility] Facility:[facility] Start: 08-07-2022 Follow-up encounter Rubén Carney ba, MD Work Phone: [facility] Start: 08-07-2022 ICD Remote F/U Rubén Howell Work Phone: [facility] Department Start: 08-03-2022 Orders Only John Howell Work Phone: Vascular Surg Dept Comment on above: Bilateral carotid ar annalee stenosis (Primary Dx) Start: 08-01-2022 Telephone encounter Samm Thompson MD Work Phone: [facility] Comment on above: Appointment Start: 07-30-2022 Telephone encounter Samm Thompson MD Work Phone: [facility] Comment on above: Appointment Start: 07-25-2022 Telephone encounter Zahra amta MD Work Phone: Cardiology Comment on above: Received Outside Med ical Records Start: 07-23-2022 End: 07-24-2022 ambulatory MALAIKA HAILETREVOR Facility: Start: 07-18-2022 End: 07-19-[address] SAMM THOMPSON . Facility:[facility] Start: 06-27-2022 End: 06-28-[address] SAMM THOMPSON . Facility:[facility] Start: 06-27-2022 End: 06-28-[address] SAMM THOMPSON . Facility:[facility] Start: 06-18-2022 Encounter for preprocedural laboratory examination [facility] Start: 06-14-2022 End: 06-15-2022 Encounter for preprocedural laboratory examination DR SAMM THOMPSON . Facility: Start: 06-14-2022 End: 06-15-[address] SAMM [...] Evaluation and management of inpatient SHARON HOOKS Facility:[facility] Start: 05-16-2022 End: 05-17-2022 ambulatory SHARON HOOKS . Facility: Start: 05-14-2022 End: 05-15-[address] SAMM THOMPSON . Facility: Start: 05-08-2022 Follow-up encounter Rubén Carney ba, MD Work Phone: [facility] Start: 05-08-2022 ICD Remote F/U Rubén Bucio M D Work Phone: [facility] Department Start: 04-26-2022 End: 04-26-2022 ambulatory Yung Andrade MD Work Phone: Radiation Oncology Comment on above: Malignant neoplasm o f prostate (HCC) (Primary Dx) Start: 04-26-2022 End: 04-26-2022 Telemedicine consultation with patient Yung Denilson Andrade MD Work Phone: [facility] Start: 02-06-2022 Follow-up encounter Rubén Carney ba, MD Work Phone: [facility] Start: 02-06-2022 ICD Remote F/U Rubén Howell Work Phone: [facility] Department Start: 01-15-2022 Orders Only Carlos Barone RN Dominick tology/Oncology Comment on above: Unspecified hypothyr oidism (Primary Dx); Hypercholesterolemia; Abnormal finding of blood chemistry, unspecified Start: 01-03-2022 Patient encounter procedure Yung Andrade MD Work Phone: [facility] Start: 01-03-2022 Radiation Oncology Note G Navin Andrade MD Work Phone: Radiation Oncology Comment on above: Completion Note Start: 12-18-2021 Patient encounter procedure Yung Andrade MD Work Phone: [facility] Start: 12-18-2021 Radiation Oncology Note G Navin Andrade MD [...] Start: 09-11-2021 Encounter for other preprocedural examination FUENTES WHEAT [facility] Start: 04-30-2012 Patient encounter status ARACELI phillips MD Work Phone: [facility] Work Phone: Start: 04-28-2012 End: 05-01-2012 Preprocedural examination done Research [place] Work Phone: [facility] Procedures Date Procedure Procedure Detail Performing Clinician Start: 11-04-2024 Comprehensive metabo lic panel Shankar PABLO Work Phone: Start: 11-03-2024 Comprehensive metabo lic panel Shankar PABLO Work Phone: Start: 11-02-2024 Comprehensive metabo lic panel Shankar PABLO Work Phone: Start: 11-01-2024 Comprehensive metabo lic panel Shankar PABLO Work Phone: Start: 10-31-2024 Comprehensive metabo lic panel Shankar PABLO Work Phone: Start: 10-30-2024 Us abdominal real ti me w/image limited Dirk Normajackie DO Work Phone: Start: 10-30-2024 Comprehensive metabo lic panel Shankar PABLO Work Phone: Start: 10-29-2024 Comprehensive metabo lic panel Shankar PABLO Work Phone: Start: 10-28-2024 Comprehensive metabo lic panel Shankar PABLO Work Phone: Start: 10-27-2024 Comprehensive metabo lic panel Shankar PABLO Work Phone: Start: 10-27-2024 Comprehensive metabo lic panel Shankar PABLO Work Phone: Start: 10-26-2024 Radiologic exam ches t single view Shankar PABLO Work Phone: Start: 10-25-2024 Comprehensive metabo lic panel Shankar PABLO Work Phone: Start: 10-24-2024 Radiologic exam ches t single view Shankar PABLO Work Phone: Start: 10-24-2024 Comprehensive metabo lic panel Shankar PABLO Work Phone: Start: 10-23-2024 Radiologic exam ches t single view Saturday VALVE INSERTER-C Work Phone: Start: 10-23-2024 Comprehensive metabo lic panel Dirk Sanders DO Work Phone: Start: 10-22-2024 Comprehensive metabo lic panel Shankar PABLO Work Phone: Start: 10-21-2024 Us abdominal real ti me w/image limited Shankar PABLO Work Phone: Start: 10-21-2024 Comprehensive metabo lic panel Shankar PABLO Work Phone: Start: 10-20-2024 Comprehensive metabo lic panel Shankar PABLO Work Phone: Start: 10-19-2024 Comprehensive metabo lic panel Shankar PABLO Work Phone: Start: 10-18-2024 Comprehensive metabo lic panel Dirk Sanders DO Work Phone: Start: 09-21-2024 O2 SATURATION (POC) Mar damián Wheat DO Work Phone: Start: 09-21-2024 Antibody screen FUENTES SANDY Comment on above: Order Comment: Speci men Type: BLOOD SPECIMENOrdering Facility: [facility] Address: [address] [place] [address] Performed By: #### T SCR ####CC MAIN BLOOD BANKCLIA [id number] [address] [place] Start: 09-18-2024 Interrog eval f2f 1/dual/rail equipment operator leads impltbl dfb Jazmin PABLO Work Phone: Start: 09-18-2024 Echocardiography FUENTES LAINEZMELISSA Start: 09-17-2024 Antibody screen FUENTES SANDY Comment on above: Order Comment: Speci men Type: BLOOD SPECIMENOrdering Facility: [facility] Address: [address] [place] [address] Performed By: #### T SCR ####CC MAIN BLOOD BANKCLIA [id number] [address] Start: 08-19-2024 Prgrmg dev eval impl antable subq lead dfb system [facility] Provider Start: 07-23-2024 Echocardiography FUENTES WHEAT Start: 07-22-2024 Antibody screen FUENTES SANDY Comment on above: Order Comment: Speci men Type: BLOOD SPECIMENOrdering Facility: [facility] Address: [address] [place] [address] Performed By: #### T SCR ####CC MAIN BLOOD BANKCLIA [id number] [address] Start: 05-14-2024 Colonoscopy FUENTES NICOLERON RIOS Start: 05-14-2024 Antibody screen FUENTES SANDY Comment on above: Order Comment: Speci men Type: BLOOD SPECIMENOrdering Facility: [facility] Address: [address] [place] [address] Performed By: #### T SCR ####CC MAIN BLOOD BANKCLIA [id number] [address] Start: 05-11-2024 Echocardiography FUENTES FATOUMELISSA Start: 05-10-2024 Antibody screen FUENTES SANDY Comment on above: Order Comment: Speci men Type: BLOOD SPECIMENOrdering Facility: [facility] Address: [address] [place] [address] Performed By: #### T SCR ####CC MAIN BLOOD BANKCLIA [id number] [address] Start: 05-06-2024 Echocardiography FUENTES WHEAT Start: 03-30-2024 Echocardiography FUENTES WHEAT Start: 03-03-2024 Antibody screen LOYD DU Comment on above: Order Comment: Speci men Type: BLOOD SPECIMENOrdering Facility: [facility] Address: [address] [place] [address] Performed By: #### T SCR ####CC MAIN BLOOD BANKCLIA [id number] [address] Start: 03-02-2024 Visual field xm uni/ bi w/interp extended exam Susi Whitehead OD Work Phone: Start: 2024 Echocardiography FUENTES WHEAT Start: 02-16-2024 Antibody screen LOYD DU Comment on above: Order Comment: Speci men Type: BLOOD SPECIMENOrdering Facility: [facility] Address: [address] [place] [address] Performed By: #### T SCR ####CC MAIN BLOOD BANKCLIA [id number] [address] Start: 02-05-2024 Echocardiography FUENTES WHEAT Start: 12-25-2023 Follow-up visit Follow-up BEKA HARMON Start: 12-22-2023 ICD REMOTE CHECK Rubén Bucio MD Work Phone: Start: 12-12-2023 Echocardiography FUENTES WHEAT Start: 12-02-2023 Follow-up visit HARI M AQSOOD Start: 11-25-2023 ICD REMOTE CHECK Rubén Bucio MD Work Phone: Start: 11-18-2023 Follow-up visit HARI M AQSOOD Start: 02-21-2023 ICD REMOTE CHECK Rubén Bucio MD Work Phone: Start: 11-06-2022 ICD REMOTE CHECK Rubén Bucio MD Work Phone: Start: 10-25-2022 Myocrd img pet prfuj rail equipment operator std rst&strs cncrnt ct Zahra Pierre MD Work Phone: Start: 10-25-2022 Myocrd img pet prfuj w/metab 2rtracer cncrnt ct Zahra Pierre MD Work Phone: Start: 10-25-2022 End: 10-25-2022 Gluc bld gluc mntr dev cleared fda spec home use [facility] Provider Start: 09-12-2022 End: 09-12-2022 PSA screening [facility] Provider Comment on above: Performed By: #### B MP, BNP #### [facility] [address] [place] [address] Dr. Silva Burnett Start: 08-07-2022 ICD REMOTE [...] bypass grafting Hx of CABG Carmelina Ramos KNIFE BLADE POLISHER.EDISCOVERY PROJECT MANAGER Work Phone: History of coronary artery bypass grafting S/P CABG (coronary artery bypass graft) Jethro Brady MD Work Phone: History of coronary artery bypass grafting S/P CABG (coronary artery bypass graft) Dorcas Fernandes MD Work Phone: History of coronary artery bypass grafting S/P CABG (coronary artery bypass graft) Dorcas Fernandes MD Work Phone: History of coronary artery bypass grafting S/P CABG (coronary artery bypass graft) Nj Wei MD Work Phone: Plan of Treatment Date Care Activity Detail Author Start: 06-13-2030 DTaP,Tdap and Td Vaccines (2 - Tdap) DTaP,Tdap and Td Vaccines (2 - Tdap) [facility] [place] [facility] Start: 06-13-2030 DTaP/Tdap/Td vaccine (2 - Tdap) DTaP/Tdap/Td vaccine (2 - Tdap) [facility] Start: 06-13-2030 Urine microalbumin profile [facility] Start: 10-25-2025 DIABETES SCREEN DIABETES SCREEN [facility] Start: 06-06-2025 DIABETES SCREEN DIABETES SCREEN [facility] Start: 04-19-2025 DIABETES SCREEN DIABETES SCREEN [facility] Start: 03-18-2025 Hemoglobin A1c measurement HbA1C [facility] Start: 03-02-2025 Glaucoma screening Dilated Retinal Exam [facility] Start: 03-01-2025 End: 03-01-2025 Patient encounter procedure Cardiology Comment on above: Dx: PVC VT REGISTRY Start: 03-01-2025 End: 03-01-2025 Patient encounter procedure 03/01/2025 10:30 AM EDT Appointment Cardiology [address] [place] [address] Dx: PVC Cardiology Comment on above: Dx: PVC Start: 03-01-2025 End: 03-01-2025 ambulatory 03/01/2025 9:45 AM EDT Results Only Cardiology [address] [place] [address] Dx: PVC Cardiology Comment on above: Dx: PVC Start: 02-25-2025 Adult BMI Screening Adult BMI Screening [facility] Start: 02-15-2025 Hepatitis B surface antibody level LDL Cholesterol [facility] Start: 01-15-2025 DIABETES SCREEN DIABETES SCREEN [facility] Start: 12-23-2024 End: 12-23-2024 ambulatory Cardiology Comment on above: DX: Acute on chronic systolic congestive heart failure virtual f/u to revie w carotid ultrasound (luís on leave) Start: 12-22-2024 End: 12-22-2024 Patient encounter procedure Vascular Medicine Comment on above: Dx: Cardiomyopathy, ischemic Start: 12-22-2024 End: 12-22-2024 ambulatory Cardiology Comment on above: Acute on chronic systolic congestive hea rt failure Dx: Cardiomyopathy, ischemic Start: 12-02-2024 End: 12-02-2024 Patient encounter procedure 12/02/2024 3:00 PM EDT [facility] Visit [facility] [address] [facility] [place] [address] Rubi Douglas I, MD [address] [place] [address] CKD Kidney Medicine Comment on above: CKD Start: 11-09-2024 DIABETES SCREEN DIABETES SCREEN [facility] Start: 11-09-2024 Hemoglobin A1c measurement HbA1C [facility] Start: 10-09-2024 End: 10-09-2024 Patient encounter procedure 10/09/2024 1:00 PM EST Office Visit Cardiology [address] [place] [address] Carmela Fernandes MD [address] [place] [address] HFrEF Cardiology Comment on above: HFrEF Start: 10-07-2024 End: 10-07-2024 ambulatory 10/07/2024 2:00 PM EST [facility] [address] [place] [address] Tuyet Rodrigues APRN.EDISCOVERY PROJECT MANAGER [address] [place] [address] virtual f/u to review carotid ultrasound (luís on leave) [facility] Comment on above: virtual f/u to review carotid ultrasound (luís on leave) Start: 10-07-2024 End: 01-06-2025 TESTOSTERONE, FREE AND TOTAL TESTOSTERONE, FREE AND TOTAL Lab Routine History of prostate cancer Expected: 10/07/2024, Expires: 01/06/2025 [facility] Comment on above: Expected: 10/07/2024, Expires: Start: 10-05-2024 End: 10-05-2024 ambulatory 10/05/2024 12:00 PM EST Results Only Cardiology [address] [place] [address] Dx: Cardiomyopathy, ischemic Cardiology Comment on above: Dx: Cardiomyopathy, ischemic Start: 10-05-2024 End: 10-05-2024 Patient encounter procedure Vascular Medicine Comment on above: DX: Carotid stenosis, symptomatic w/o in farct, left Dx: Cardiomyopathy, ischemic US Carotid Bilateral Start: 10-01-2024 End: 12-31-2024 Prostate specific Ag [Mass/volume] in Serum or Plasma PROSTATE-SPECIFIC ANTIGEN DIAGNOSTIC Lab Routine History of prostate cancer Expected: 10/01/2024, Expires: 12/31/2024 [facility] Work Phone: Comment on above: Expected: 10/01/2024, Expires: Start: 09-29-2024 End: 09-29-2024 ambulatory 09/29/2024 4:00 PM EST Results Only Cardiology [address] [place] [address] PVC Cardiology Comment on above: PVC Start: 09-29-2024 End: 09-29-2024 Patient encounter procedure Radiation Oncology Comment on above: 6 month rv PVC Start: 09-28-2024 Hepatitis B surface antibody level LDL Cholesterol [facility] Start: 09-28-2024 End: 09-28-2024 ambulatory 09/28/2024 1:45 PM EST Results Only Cardiology [address] [place] [address] Dx: Cardiomyopathy, ischemic Cardiology Comment on above: Dx: Cardiomyopathy, ischemic Start: 09-28-2024 End: 09-28-2024 Patient encounter procedure Cardiology Comment on above: Dx: Cardiomyopathy, ischemic Start: 09-22-2024 End: 09-22-2024 Patient encounter procedure 09/22/2024 1:15 PM EST Office Visit [facility] [address] [place] [address] [place] [address] lab [facility] Comment on above: lab Start: 09-21-2024 End: 09-21-2024 Cath plmt r hrt & arts w/njx & angio img s&i RIGHT HEART CATH CORONARY ARTERY ANGIO INTRAPROCEDURAL INJECT IMAGE SUPERVISION/INTERPRETAT ION CAD in pechanga artery 09/21/2024 9:10 AM EST 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 PLANNING 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 Start: 09-16-2024 Advance Directive Discussion Advance Directive Discussion [facility] Start: 09-11-2024 End: 12-11-2024 Basic metabolic 2000 panel - Serum or Plasma BASIC METABOLIC PANEL Lab Routine Chronic systolic heart failure (HCC) Expected: 09/11/2024, Expires: 12/11/2024 [facility] Work Phone: Comment on above: Expected: 09/11/2024, Expires: Start: 09-11-2024 End: 12-11-2024 Natriuretic peptide.B prohormone N-Terminal [Mass/volume] in Serum or Plasma NT PRO BNP Lab Routine Chronic systolic heart failure (HCC) Expected: 09/11/2024, Expires: 12/11/2024 [facility] Comment on above: Expected: 09/11/2024, Expires: Start: 09-07-2024 End: 09-07-2024 Patient encounter procedure 09/07/2024 2:45 PM EST Office Visit Cardiology [address] [place] [address] Carmela Fernandes MD [address] [place] [address] Main, Nurse Card Chf [address] [place] [address] DX: Acute on chronic systolic congestive heart failure Cardiology Comment on above: DX: Acute on chronic systolic congestive heart failure Start: 09-07-2024 End: 09-07-2024 ambulatory 09/07/2024 2:00 PM EST Results Only Main [place] [address] [address] [place] [address] DX: Acute on chronic systolic congestive heart failure [address] [place] Comment on above: DX: Acute on chronic systolic congestive heart failure Start: 09-07-2024 End: 12-07-2024 Basic metabolic 2000 panel - Serum or Plasma BASIC METABOLIC PANEL Lab Routine Chronic systolic heart failure (HCC) Non-rheumatic mitral regurgitation Expected: 09/07/2024, Expires: 12/07/2024 [facility] Work Phone: Comment on above: Expected: 09/07/2024, Expires: Start: 09-07-2024 End: 12-07-2024 CBC panel - Blood by Automated count COMPLETE BLOOD COUNT Lab Routine Chronic systolic heart failure (HCC) Non-rheumatic mitral regurgitation Expected: 09/07/2024, Expires: 12/07/2024 [facility] Comment on above: Expected: 09/07/2024, Expires: Start: 09-07-2024 End: 12-07-2024 Natriuretic peptide.B prohormone N-Terminal [Mass/volume] in Serum or Plasma NT PRO BNP Lab Routine Chronic systolic heart failure (HCC) Non-rheumatic mitral regurgitation Expected: 09/07/2024 (Approximate), Expires: 12/07/2024 [facility] Comment on above: Expected: 09/07/2024 (Approximate), Expi res: 12/07/2024 Start: 08-31-2024 End: 08-31-2024 ambulatory 08/31/2024 2:00 PM EST Results Only [facility] [address] [place] [address] [place] [address] DX: Acute on chronic systolic congestive heart failure [facility] Comment on above: DX: Acute on chronic systolic congestive heart failure Start: 08-27-2024 End: 11-26-2024 Basic metabolic 2000 panel - Serum or Plasma BASIC METABOLIC PANEL Lab Routine Heart failure, acute systolic (HCC) Acute on chronic systolic congestive heart failure (HCC) Carotid stenosis, 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, left Expected: 08/27/2024, Expires: 11/26/2024 [facility] Comment on above: Expected: 08/27/2024, Expires: Start: 08-27-2024 End: 11-26-2024 CBC W Auto Differential panel - Blood COMPLETE BLOOD COUNT AND DIFFERENTIAL Lab Routine Heart failure, acute systolic (HCC) Acute on chronic systolic congestive heart failure (HCC) Carotid stenosis, 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, left Expected: 08/27/2024, Expires: 11/26/2024 [facility] Comment on above: Expected: 08/27/2024, Expires: Start: 08-27-2024 End: 11-26-2024 Natriuretic peptide.B prohormone N-Terminal [Mass/volume] in Serum or Plasma NT PRO BNP Lab Routine Heart failure, acute systolic (HCC) Acute on chronic systolic congestive heart failure (HCC) Carotid stenosis, 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, left Expected: 08/27/2024, Expires: 11/26/2024 [facility] Work Phone: Comment on above: Expected: 08/27/2024, Expires: Start: 08-19-2024 End: 08-19-2024 Patient encounter procedure Cardiology Comment on above: Dx: PVC DX: Acute on chronic systolic congestive heart failure Start: 08-19-2024 End: 08-19-2024 ambulatory 08/19/2024 9:00 AM EST Results Only Cardiology [address] [place] [address] Dx: PVC Cardiology Comment on above: Dx: PVC Start: 08-17-2024 Hemoglobin A1c measurement HbA1C [facility] Start: 07-31-2024 End: 07-31-2024 Patient encounter procedure 07/31/2024 3:40 PM EST Office Visit Kidney Medicine [address] [place] [address] [place] [address] [place] [address] CKD Kidney Medicine Comment on above: CKD Start: 07-16-2024 End: 07-16-2024 Clinical Support 07/16/2024 1:45 PM EDT Clinical Support [facility] [address] [place] [address] [facility] Start: 07-15-2024 End: 07-15-2024 Clinical Support 07/15/2024 1:45 PM EDT Clinical Support [facility] [address] [place] [address] [facility] Start: 07-13-2024 End: 07-13-2024 Clinical Support 07/13/2024 1:45 PM EDT Clinical Support [facility] [address] [place] [address] [facility] Start: 07-09-2024 End: 07-09-2024 Clinical Support 07/09/2024 1:45 PM EDT Clinical Support [facility] [address] [place] [address] [facility] Start: 07-08-2024 End: 07-08-2024 Clinical Support 07/08/2024 1:45 PM EDT Clinical Support [facility] [address] [place] [address] [facility] Start: 07-06-2024 End: 07-06-2024 Clinical Support 07/06/2024 1:45 PM EDT Clinical Support [facility] [address] [place] [address] [facility] Start: 07-02-2024 End: 07-02-2024 Clinical Support 07/02/2024 1:45 PM EDT Clinical Support [facility] [address] [place] [address] [facility] Start: 07-01-2024 End: 07-01-2024 Clinical Support 07/01/2024 1:45 PM EDT Clinical Support [facility] [address] [place] [address] [facility] Start: 06-29-2024 End: 06-29-2024 Clinical Support 06/29/2024 1:45 PM EDT Clinical Support [facility] [address] [place] [address] [facility] Start: 06-25-2024 End: 06-25-2024 Clinical Support 06/25/2024 1:45 PM EDT Clinical Support [facility] [address] [place] [address] [facility] Start: 06-01-2024 End: 06-01-2024 ambulatory 06/01/2024 3:00 PM EDT [facility] Cardiology [address] [place] [address] Dorcas Fernandes MD [address] [place] [address] DX: Dx: Cardiomyopathy, ischemic Cardiology Comment on above: DX: Dx: Cardiomyopathy, ischemic Start: 05-29-2024 End: 05-29-2024 Patient encounter procedure 05/29/2024 1:00 PM EDT Office Visit Kidney Medicine [address] [place] [id number] [place] [address] [place] [address] CKD Kidney Medicine Comment on above: CKD Start: 05-17-2024 Covid-19 Vaccine ( season) Covid-19 Vaccine ( season) [facility] Start: 05-17-2024 Covid-19 Vaccine ( season) Covid-19 Vaccine ( season) [facility] Start: 05-17-2024 Influenza vaccination [facility] Start: 05-14-2024 End: 05-14-2024 Clinical Support 05/14/2024 11:00 AM EDT Clinical Support [facility] [address] [place] [address] [facility] Start: 05-13-2024 End: 05-13-2024 Clinical Support 05/13/2024 11:00 AM EDT Clinical Support [facility] [address] [place] [address] [facility] Start: 05-11-2024 End: 05-11-2024 Clinical Support 05/11/2024 11:00 AM EDT Clinical Support [facility] [address] [place] [address] [facility] Start: 05-07-2024 End: 05-07-2024 Clinical Support 05/07/2024 11:00 AM EDT Clinical Support [facility] [address] [place] [address] [facility] Start: 05-06-2024 End: 05-06-2024 Patient encounter procedure Cardiology Comment on above: DX: Severe mitral regurgitation [I34.0] Start: 05-04-2024 End: 05-04-2024 Clinical Support 05/04/2024 11:00 AM EDT Clinical Support [facility] [address] [place] [address] [facility] Start: 04-30-2024 End: 04-30-2024 Clinical Support 04/30/2024 11:00 AM EDT Clinical Support [facility] [address] [place] [address] [facility] Start: 04-29-2024 End: 04-29-2024 Clinical Support 04/29/2024 11:00 AM EDT Clinical Support [facility] [address] [place] [address] [facility] Start: 04-27-2024 End: 04-27-2024 Clinical Support 04/27/2024 11:00 AM EDT Clinical Support [facility] [address] [place] [address] [facility] Start: 04-23-2024 End: 04-23-2024 Clinical Support 04/23/2024 11:00 AM EDT Clinical Support [facility] [address] [place] [address] [facility] Start: 04-22-2024 End: 04-22-2024 Clinical Support 04/22/2024 11:00 AM EDT Clinical Support [facility] [address] [place] [address] [facility] Start: 04-20-2024 End: 04-20-2024 Clinical Support 04/20/2024 11:00 AM EDT Clinical Support [facility] [address] [place] [address] [facility] Start: 04-16-2024 Influenza vaccination Flu vaccine (#1) [facility] Start: 04-16-2024 End: 04-16-2024 Clinical Support 04/16/2024 11:00 AM EDT Clinical Support [facility] [address] [place] [address] [facility] Start: 04-15-2024 End: 04-15-2024 Clinical Support 04/15/2024 11:00 AM EDT Clinical Support [facility] [address] [place] [address] [facility] Start: 04-13-2024 End: 04-13-2024 Clinical Support 04/13/2024 11:00 AM EDT Clinical Support [facility] [address] [place] [address] [facility] Start: 04-09-2024 End: 04-09-2024 Clinical Support 04/09/2024 11:00 AM EDT Clinical Support [facility] [address] [place] [address] [facility] Start: 04-08-2024 End: 04-08-2024 Clinical Support 04/08/2024 11:00 AM EDT Clinical Support [facility] [address] [place] [address] [facility] Start: 04-07-2024 End: 07-07-2024 Basic metabolic 2000 panel - Serum or Plasma BASIC METABOLIC PANEL Lab Routine Chronic systolic heart failure (HCC) Expected: 04/07/2024 (Approximate), Expires: 07/07/2024 [facility] Work Phone: Comment on above: Expected: 04/07/2024 (Approximate), Expi res: 07/07/2024 Start: 04-06-2024 End: 04-06-2024 ambulatory [facility] Start: 04-02-2024 End: 04-02-2024 Clinical Support 04/02/2024 11:00 AM EDT Clinical Support [facility] [address] [place] [address] [facility] Start: 03-31-2024 End: 06-30-2024 Natriuretic peptide.B prohormone N-Terminal [Mass/volume] in Serum or Plasma NT PRO BNP Lab Routine Chronic systolic heart failure (HCC) Expected: 03/31/2024, Expires: 06/30/2024 [facility] Comment on above: Expected: 03/31/2024, Expires: Start: 03-31-2024 End: 03-31-2024 ambulatory [facility] Comment on above: Dx: Dx: Cardiomyopathy, ischemic Start: 03-31-2024 End: 03-31-2024 Patient encounter procedure 03/31/2024 1:15 PM EDT Office Visit Radiation Oncology [address] [place] [address] Yung Andrade MD [address] [place] [address] 6 month rv Radiation Oncology Comment on above: 6 month rv Start: 03-30-2024 End: 06-29-2024 Basic metabolic 2000 panel - Serum or Plasma [facility] Work Phone: Comment on above: Expected: 03/30/2024, Expires: Start: 03-30-2024 End: 03-30-2024 Patient encounter procedure Cardiology Comment on above: HFrEF Severe mitral regurg itation Start: 03-30-2024 End: 03-30-2024 ambulatory 03/30/2024 1:30 PM EDT Results Only Cardiology [address] [id number] Severe mitral regurgitation Cardiology Comment on above: Severe mitral regurgitation Start: 03-26-2024 End: 03-26-2024 Clinical Support 03/26/2024 11:00 AM EDT Clinical Support [facility] [address] [place] [address] [facility] Start: 03-25-2024 End: 03-25-2024 Clinical Support 03/25/2024 11:00 AM EDT Clinical Support [facility] [address] [place] [address] [facility] Start: 03-24-2024 End: 03-24-2024 Patient encounter procedure 03/24/2024 1:00 PM EDT Office Visit [facility] [address] [place] [address] [place] [address] lab [facility] Comment on above: lab Start: 03-18-2024 End: 03-18-2024 Distance Health 03/18/2024 2:05 PM EDT [facility] Neurology [facility] [address] [place] [address] Luís Skinner, KNIFE BLADE POLISHER.EDISCOVERY PROJECT MANAGER [address] [facility] [address] [place] [address] HOSPITAL F/U - 0-2 week stroke fu appointment with an RYLIE, PER HOSPITAL ORDER Neurology [facility] Comment on above: HOSPITAL F/U - 0-2 week stroke fu appoin tment with an RYLIE, PER HOSPITAL ORDER Start: 03-11-2024 End: 03-11-2024 Patient encounter procedure 03/11/2024 11:20 AM EDT Office Visit Otolaryngology [address] [place] [address] Charu Kincaid, KNIFE BLADE POLISHER.EDISCOVERY PROJECT MANAGER [address] [place] [address] Sore throat [J02.9] Otolaryngology Comment on above: Sore throat [J02.9] Start: 02-28-2024 End: 02-28-2024 Patient encounter procedure 02/28/2024 3:30 PM EDT Office Visit Cardiology [address] [place] [address] Keesha Mcarthur, KNIFE BLADE POLISHER.EDISCOVERY PROJECT MANAGER [address] [place] [address] Severe mitral regurgitation Cardiology Comment on above: Severe mitral regurgitation Start: 02-28-2024 End: 02-28-2024 ambulatory 02/28/2024 3:00 PM EDT Results Only Cardiology [address] [place] [address] Severe mitral regurgitation Cardiology Comment on above: Severe mitral regurgitation Start: 02-27-2024 End: 2025 ECG COMPLETE ECG COMPLETE ECG Routine Severe mitral regurgitation Status post implantation of mitral valve leaflet clip Expected: 02/27/2024, Expires: 2025 [facility] Comment on above: Expected: 02/27/2024, Expires: Start: 02-18-2024 End: 02-18-2024 Evaluation and management of inpatient 02/18/2024 12:44 PM EDT - 02/18/2024 4:36 PM EDT Surgery Admitting [address] [place] [address] Isreal Pereira MD [address] [facility] [address] [place] [address] TRANSCATHETER MITRAL VALVE REPAIR PERCUTANEOUS INCLUDE TRANSSEPTAL [...] 02/18/2024 2:55 PM EDT Surgery Admitting [address] [place] [address] Isreal Pereira MD [address] [place] [address] TRANSCATHETER MITRAL VALVE REPAIR PERCUTANEOUS INCLUDE TRANSSEPTAL [...] 10:45 AM EDT Office Visit Cardiology [address] [place] [address] to be admitted prior on 02/14 and will remain in the house for the procedure. Cardiology Comment on above: to be admitted prior on 02/14 and will rem ain in the house for the procedure. Start: 02-18-2024 End: 02-18-2024 ambulatory 02/18/2024 10:30 AM EDT Procedure Cardiology [address] [place] [address] to be admitted prior on 02/14 and [...] insufficiency, unspecified etiology 02/18/2024 9:03 AM EDT [facility] Start: 02-15-2024 Evaluation and management of inpatient 02/15/2024 12:44 PM EDT Hospital Encounter [id number] [address] [id number] Isreal Pereira MD [address] [facility] [address] [place] [id number] to be admitted prior on 02/14 and will remain in the house for the procedure., Mitral Valve Transcatheter Vdcy-mj-Mnyx Repair (M-AZAEL) w/ Cowart MitraClip, Procedure on: 02/18/24 at 10:30 am [id number] Comment on above: to be admitted prior on 02/14 and will rem ain in the house for the procedure., Mitral Valve Transcatheter Kiob-za-Rxsp Repair (M-AZAEL) w/ Cowart MitraClip, Procedure on: 02/18/24 at 10:30 am Start: 02-15-2024 Evaluation and management of inpatient 02/15/2024 11:03 AM EDT Hospital Encounter [id number] [address] [place] [address] Nicole Coppola MD [address] [facility] [place], [place] [phone] Isreal Pereira MD [address] [facility] [address] [place], [place] [id number] to be admitted prior on 02/14 and will remain in the house for the procedure., Mitral Valve Transcatheter Vhgo-jq-Iqgo Repair (M-AZAEL) w/ Cowart MitraClip, Procedure on: 02/18/24 at 10:30 am [id number] Comment on above: to be admitted prior on 02/14 and will rem ain in the house for the procedure., Mitral Valve Transcatheter Ldbo-ee-Fphm Repair (M-AZAEL) w/ Cowart MitraClip, Procedure on: 02/18/24 at 10:30 am Start: 02-13-2024 End: 02-13-2024 Clinical Support 02/13/2024 1:30 PM EDT Clinical Support [facility] [address] [place] [address] [facility] Start: 02-12-2024 End: 02-12-2024 Clinical Support 02/12/2024 1:30 PM EDT Clinical Support [facility] [address] 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) Cardiology Comment on above: 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) Start: 02-06-2024 End: 02-06-2024 Clinical Support 02/06/2024 1:30 PM EDT Clinical Support [facility] [address] [place] [address] [facility] Start: 02-05-2024 End: 02-05-2024 Patient encounter procedure 02/05/2024 3:10 PM EDT Office Visit Vascular Medicine [address] [id number] EMPOWER MITCH TO DO, Vascular Medicine Comment on above: EMPOWER MITCH TO DO, Start: 02-05-2024 End: 02-05-2024 Nursing evaluation of patient and report 02/05/2024 2:00 PM EDT Nurse Visit Cardiology [address] [place] [address] Mn, Research Nurse Card Intervention [address] [place], [place] [phone] -[phone] [facility] Comment on above: [facility] Start: 02-05-2024 End: 02-05-2024 ambulatory [facility] [address] jazmin German Comment on above: [facility] Start: 02-03-2024 End: 02-03-2024 Clinical Support 02/03/2024 1:30 PM EDT Clinical Support [facility] [address] [place] [address] [facility] Start: 01-30-2024 End: 01-30-2024 Clinical Support 01/30/2024 1:30 PM EDT Clinical Support [facility] [address] [place] [address] [facility] Start: 01-29-2024 End: 01-29-2024 Clinical Support 01/29/2024 1:30 PM EDT Clinical Support [facility] [address] [place] [address] [facility] Start: 01-27-2024 End: 01-27-2024 Clinical Support 01/27/2024 1:30 PM EDT Clinical Support [facility] [address] [place] [address] [facility] Start: 01-23-2024 End: 01-23-2024 Clinical Support 01/23/2024 1:30 PM EDT Clinical Support [facility] [address] [place] [address] [facility] Start: 01-22-2024 End: 01-22-2024 Clinical Support 01/22/2024 1:30 PM EDT Clinical Support [facility] [address] [place] [address] [facility] Start: 01-20-2024 End: 01-20-2024 Clinical Support 01/20/2024 1:30 PM EDT Clinical Support [facility] [address] [place] [address] [facility] Start: 01-16-2024 End: 01-16-2024 Clinical Support 01/16/2024 1:30 PM EDT Clinical Support [facility] [address] [place] [address] [facility] Start: 01-15-2024 End: 01-15-2024 Clinical Support 01/15/2024 1:30 PM EDT Clinical Support [facility] [address] [place] [address] [facility] Start: 01-13-2024 End: 01-13-2024 Clinical Support 01/13/2024 1:30 PM EDT Clinical Support [facility] [address] [place] [address] [facility] Start: 01-09-2024 End: 01-09-2024 Clinical Support 01/09/2024 1:30 PM EDT Clinical Support [facility] [address] [place] [address] [facility] Start: 01-08-2024 End: 01-08-2024 Clinical Support 01/08/2024 1:30 PM EDT Clinical Support [facility] [address] [place] [address] [facility] Start: 01-02-2024 End: 01-02-2024 Clinical Support 01/02/2024 1:30 PM EDT Clinical Support [facility] [address] [place] [address] [facility] Start: 01-01-2024 End: 01-01-2024 Clinical Support 01/01/2024 1:30 PM EDT Clinical Support [facility] [address] [place] [address] [facility] Start: 12-30-2023 End: 12-30-2023 Clinical Support 12/30/2023 1:30 PM EDT Clinical Support [facility] [address] [place] [address] [facility] Start: 12-26-2023 End: 12-26-2023 Clinical Support 12/26/2023 1:30 PM EDT Clinical Support [facility] [address] [place] [address] [facility] Start: 12-25-2023 End: 12-25-2023 Clinical Support 12/25/2023 1:30 PM EDT Clinical Support [facility] [address] [place] [address] [facility] Start: 10-29-2023 End: 01-28-2024 Comprehensive metabolic 2000 panel - Serum or Plasma COMP METABOLIC PANEL Lab Routine Chronic 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) Expected: 10/29/2023, Expires: 01/28/2024 [facility] Work Phone: Comment on above: Expected: 10/29/2023, Expires: Start: 09-16-2023 Advance Directive Discussion Advance Directive Discussion [facility] Start: 09-16-2023 Behavioral Health Screening Behavioral Health Screening [facility] Start: 09-16-2023 Depression Assessment Depression Assessment [facility] Start: 05-17-2023 Covid-19 Vaccine () Covid-19 Vaccine () [facility] Start: 05-17-2023 Influenza vaccination [facility] Start: 04-01-2023 End: 06-01-2023 Prostate specific Ag [Mass/volume] in Serum or Plasma PSA/PROSTSPECAG DIAG Lab Routine Malignant neoplasm of prostate (HCC) Expected: 04/01/2023 (Approximate), Expires: 06/01/2023 [facility] Work Phone: Comment on above: Expected: 04/01/2023 (Approximate), Expi res: 06/01/2023 Start: 01-15-2023 Hepatitis B surface antibody level LDL CHOLESTEROL [facility] Start: 10-27-2022 End: 12-27-2022 Prostate specific Ag [Mass/volume] in Serum or Plasma PSA/PROSTSPECAG DIAG Lab Routine Malignant neoplasm of prostate (HCC) Expected: 10/27/2022, Expires: 12/27/2022 [facility] Work Phone: Comment on above: Expected: 10/27/2022, Expires: 3 Start: 09-16-2022 ADVANCE DIRECTIVE DISCUSSION ADVANCE DIRECTIVE DISCUSSION [facility] Start: 09-16-2022 DEPRESSION ASSESSMENT DEPRESSION ASSESSMENT [facility] Start: 08-18-2022 Adult BMI Screening [facility] Start: 08-17-2022 Depression Screening [facility]ening [facility] Start: 07-18-2022 Hemoglobin A1c measurement HbA1C [facility] Start: 07-18-2022 Hemoglobin A1c/Hemoglobin.total in Blood HBA1C [facility] Start: 06-06-2022 End: 08-06-2022 Comprehensive metabolic 2000 panel - Serum or Plasma [facility] Work Phone: Comment on above: Expected: 06/06/2022, Expires: 2 Start: 06-06-2022 End: 08-06-2022 Natriuretic peptide.B prohormone N-Terminal [Mass/volume] in Serum or Plasma [facility] Work Phone: Comment on above: Expected: 06/06/2022, Expires: 2 Start: 05-17-2022 Influenza vaccination [facility] Start: 01-15-2022 End: 03-17-2022 Hemoglobin A1c/Hemoglobin.total in Blood [facility] Work Phone: Comment on above: Expected: 01/15/2022, Expires: 2 Start: 01-15-2022 End: 03-17-2022 Insulin [Units/volume] in Serum or Plasma [facility] Work Phone: Comment on above: Expected: 01/15/2022, Expires: 2 Start: 01-15-2022 End: 03-17-2022 IRON + TIBC [facility] Work Phone: Comment on above: Expected: 01/15/2022, Expires: 2 Start: 01-15-2022 End: 03-17-2022 LIPID PANEL BASIC [facility] Work Phone: Comment on above: Expected: 01/15/2022, Expires: 2 Start: 01-15-2022 End: 03-17-2022 T3 UPTAKE [facility] Work Phone: Comment on above: Expected: 01/15/2022, Expires: 2 Start: 01-15-2022 End: 03-17-2022 T4 FREE/FREE THYROX [facility] Work Phone: Comment on above: Expected: 01/15/2022, Expires: 2 Start: 01-15-2022 End: 03-17-2022 T4/FTI/T4U [facility] Work Phone: Comment on above: Expected: 01/15/2022, Expires: 2 Start: 01-15-2022 End: 03-17-2022 Thyrotropin [Units/volume] in Serum or Plasma [facility] Work Phone: Comment on above: Expected: 01/15/2022, Expires: 2 Start: 01-07-2022 End: 03-09-2022 Prostate specific Ag [Mass/volume] in Serum or Plasma PSA/PROSTSPECAG DIAG Lab Routine Malignant neoplasm of prostate (HCC) Expected: 01/07/2022, Expires: 03/09/2022 [facility] Work Phone: Comment on above: Expected: 01/07/2022, Expires: 2 Start: 09-16-2021 ADVANCE DIRECTIVE DISCUSSION ADVANCE DIRECTIVE DISCUSSION [facility] Start: 09-16-2021 DEPRESSION ASSESSMENT DEPRESSION ASSESSMENT [facility] Start: 06-19-2020 Hepatitis B surface antibody level LDL CHOLESTEROL [facility] Start: 2017 Respiratory Syncytial Virus (RSV) or age 60 yrs+ (1 - 1-dose 75+ series) Respiratory Syncytial Virus (RSV) or age 60 yrs+ (1 - 1-dose 75+ series) [facility] Start: 2017 RSV Vaccine (1 - 1-dose 75+ series) RSV Vaccine (1 - 1-dose 75+ series) [facility] Start: 2007 Fall Risk Screening Fall Risk Screening [facility] Start: 2007 PNEUMOVAX AGE 65 AND OVER WITH 5YR LOOKBACK (#1) PNEUMOVAX AGE 65 AND OVER WITH 5YR LOOKBACK (#1) [facility] Start: 2002 RSV Vaccine (1 - 1-dose 60+ series) RSV Vaccine (1 - 1-dose 60+ series) [facility] Start: 02-20-1992 Pneumococcal 50+ years Vaccine (1 of 1 - PCV) Pneumococcal 50+ years Vaccine (1 of 1 - PCV) [facility] Start: 02-20-1992 Shingles vaccine (1 of 2) Shingles vaccine (1 of 2) [facility] Start: 02-20-1992 SHINGRIX VACCINE (1 of 2) SHINGRIX VACCINE (1 of 2) [facility] Start: 1961 Administration of varicella zoster vaccine Zoster (Shingles) Vaccine (1 of 2) [facility] Start: 1961 Pneumococcal Vaccine: 50+ (1 of 2 - PCV) Pneumococcal Vaccine: 50+ (1 of 2 - PCV) [facility] Start: 1961 SHINGRIX VACCINE (1 of 2) SHINGRIX VACCINE (1 of 2) [facility] Start: 02-20-1960 ANNUAL PCP TEAM CHRONIC DISEASE VISIT ANNUAL PCP TEAM CHRONIC DISEASE VISIT [facility] Start: 02-20-1960 Anxiety Screening Anxiety Screening [facility] Start: 02-20-1960 Depression Screening Depression Screening [facility] Start: 1954 Adult depression screening assessment DEPRESSION SCREENING [facility] Start: 1954 Depression Screen Depression Screen [facility] Start: 1954 Tobacco Screening Tobacco Screening [facility] Start: 02-20-1952 3 comp foot exam completed DIABETIC FOOT EXAM [facility] Start: 02-20-1952 Diabetic foot examination Diabetic Foot Exam [facility] Start: 02-20-1952 Glaucoma screening Dilated Retinal Exam [facility] Start: 02-20-1952 Hepatitis B screening URINE ALBUMIN:CREATININE RATIO [facility] Start: 02-20-1952 Hepatitis C antibody, confirmatory test DILATED RETINAL EXAM [facility] Start: 02-20-1948 Pneumococcal Vaccine: 65+ (1 - PCV) Pneumococcal Vaccine: 65+ (1 - PCV) [facility] Start: 02-20-1948 Pneumococcal Vaccine: 65+ (1 of 2 - PCV) Pneumococcal Vaccine: 65+ (1 of 2 - PCV) [facility] Start: 02-20-1948 PNEUMOCOCCAL: 65+ (1 - PCV) PNEUMOCOCCAL: 65+ (1 - PCV) [facility] Start: 1947 COVID-19 VACCINE (#1) COVID-19 VACCINE (#1) [facility] Start: 1947 COVID-19 VACCINE (1) COVID-19 VACCINE (1) [facility] Start: 1942 COVID-19 VACCINE (#1) COVID-19 VACCINE (#1) [facility] Start: 1942 Medicare Annual Wellness Visit Medicare Annual Wellness Visit [facility] [place] [employer] 7 REMOVAL OF RESIDUA L TOOTH ROOTS (CUTTING PROCEDURE) 7 REMOVAL OF RESIDUAL TOOTH ROOTS (CUTTING PROCEDURE) Dental Routine 1 Occurrences starting 02/17/2024 [facility] Work Phone: Comment on above: 1 Occurrences starting 02/17/2024 CARDIAC IMPLANTABLE DEVICE CHECK CARDIAC IMPLANTABLE DEVICE CHECK PACEART Routine Pacemaker reprogramming/check 08/19/2024 10:11 AM EST [facility] CARDIOPULMONARY REHABILITATION CARDIOPULMONARY REHABILITATION Cardiac Services Ordered: 12/19/2023 [facility] Comment on above: Ordered: 12/19/2023 Cardiopulmonary rehabilitation Cardiopulmonary rehabilitation Cardiac Services Ordered: 12/30/2023 [facility] Comment on above: Ordered: 12/30/2023 Cardiopulmonary rehabilitation Cardiopulmonary rehabilitation Cardiac Services Ordered: 01/01/2024 [facility] Comment on above: Ordered: 01/01/2024 Cardiopulmonary rehabilitation Cardiopulmonary rehabilitation Cardiac Services Ordered: 01/13/2024 [facility] Comment on above: Ordered: 01/13/2024 Cardiopulmonary rehabilitation Cardiopulmonary rehabilitation Cardiac Services Ordered: 01/20/2024 [facility] Comment on above: Ordered: 01/20/2024 Cardiopulmonary rehabilitation Cardiopulmonary rehabilitation Cardiac Services Ordered: 01/23/2024 [facility] Comment on above: Ordered: 01/23/2024 Cardiopulmonary rehabilitation Cardiopulmonary rehabilitation Cardiac Services Ordered: 01/27/2024 [facility] Comment on above: Ordered: 01/27/2024 Cardiopulmonary rehabilitation Cardiopulmonary rehabilitation Cardiac Services Ordered: 01/29/2024 [facility] Comment on above: Ordered: 01/29/2024 Cardiopulmonary rehabilitation Cardiopulmonary rehabilitation Cardiac Services Ordered: 02/03/2024 [facility] Comment on above: Ordered: 02/03/2024 Cardiopulmonary rehabilitation Cardiopulmonary rehabilitation Cardiac Services Ordered: 01/06/2024 [facility] Comment on above: Ordered: 01/06/2024 Cardiopulmonary rehabilitation Cardiopulmonary rehabilitation Cardiac Services Ordered: 01/15/2024 [facility] Comment on above: Ordered: 01/15/2024 Cardiopulmonary rehabilitation Cardiopulmonary rehabilitation Cardiac Services Ordered: 01/16/2024 [facility] Comment on above: Ordered: 01/16/2024 Cardiopulmonary rehabilitation Cardiopulmonary rehabilitation Cardiac Services Ordered: 01/22/2024 [facility] Comment on above: Ordered: 01/22/2024 Cardiopulmonary rehabilitation Cardiopulmonary rehabilitation Cardiac Services Ordered: 03/23/2024 [facility] Comment on above: Ordered: 03/23/2024 Cardiopulmonary rehabilitation Cardiopulmonary rehabilitation Cardiac Services Ordered: 03/25/2024 [facility] Comment on above: Ordered: 03/25/2024 Cardiopulmonary rehabilitation Cardiopulmonary rehabilitation Cardiac Services Ordered: 01/30/2024 [facility] Comment on above: Ordered: 01/30/2024 Cardiopulmonary rehabilitation Cardiopulmonary rehabilitation Cardiac Services Ordered: 03/26/2024 [facility] Comment on above: Ordered: 03/26/2024 Cardiopulmonary rehabilitation Cardiopulmonary rehabilitation Cardiac Services Ordered: 04/01/2024 [facility] Comment on above: Ordered: 04/01/2024 Cardiopulmonary rehabilitation Cardiopulmonary rehabilitation Cardiac Services Ordered: 04/09/2024 [facility] Comment on above: Ordered: 04/09/2024 Cardiopulmonary rehabilitation Cardiopulmonary rehabilitation Cardiac Services Ordered: 04/13/2024 [facility] Comment on above: Ordered: 04/13/2024 Cardiopulmonary rehabilitation Cardiopulmonary rehabilitation Cardiac Services Ordered: 04/15/2024 [facility] Comment on above: Ordered: 04/15/2024 Cardiopulmonary rehabilitation Cardiopulmonary rehabilitation Cardiac Services Ordered: 04/16/2024 [facility] Comment on above: Ordered: 04/16/2024 Cardiopulmonary rehabilitation Cardiopulmonary rehabilitation Cardiac Services Ordered: 04/20/2024 [facility] Comment on above: Ordered: 04/20/2024 Cardiopulmonary rehabilitation Cardiopulmonary rehabilitation Cardiac Services Ordered: 04/29/2024 [facility] Comment on above: Ordered: 04/29/2024 Cardiopulmonary rehabilitation Cardiopulmonary rehabilitation Cardiac Services Ordered: [...] (HCC) 1 Occurrences starting 06/06/2022 until 06/06/2023 [facility] Work Phone: Comment on above: 1 Occurrences starting 06/06/2022 until 06/06/2023 End: 10-30-2024 ECG COMPLETE ECG COMPLETE ECG Routine Chronic 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) 1 Occurrences starting 10/30/2023 until 10/30/2024 [facility] Work Phone: Comment on above: 1 Occurrences starting 10/30/2023 until 10/30/2024 End: 11-25-2024 ECG COMPLETE ECG COMPLETE ECG Routine Atherosclerosis of pechanga coronary artery, unspecified whether angina present, unspecified whether pechanga or transplanted heart 1 Occurrences starting 11/26/2023 until 11/25/2024 [facility] Work Phone: Comment on above: 1 Occurrences starting 11/26/2023 until 11/25/2024 End: 12-22-2024 ECG COMPLETE ECG COMPLETE ECG Routine HFrEF (heart failure with reduced ejection fraction) ([facility]) Mitral valve insufficiency, unspecified etiology 1 Occurrences starting 12/23/2023 until 12/22/2024 [facility] Work Phone: Comment on above: 1 Occurrences starting 12/23/2023 until 12/22/2024 ECG COMPLETE ECG COMPLETE ECG Routine Severe mitral regurgitation Cardiomyopathy, ischemic S/P CABG (coronary artery bypass graft) 1 Occurrences starting 12/26/2023 [facility] Work Phone: Comment on above: 1 Occurrences starting 12/26/2023 End: 2025 ECG COMPLETE ECG COMPLETE ECG Routine Severe mitral regurgitation Status post implantation of mitral valve leaflet clip 1 Occurrences starting 02/20/2024 until 2025 [facility] Comment on above: 1 Occurrences starting 02/20/2024 until 2025 End: 03-30-2025 ECG COMPLETE ECG COMPLETE ECG Routine Cardiomyopathy, ischemic S/P mitral valve clip implantation 1 Occurrences starting 03/30/2024 until 03/30/2025 [facility] Comment on above: 1 Occurrences starting 03/30/2024 until 03/30/2025 End: 07-27-2025 ECG COMPLETE ECG COMPLETE ECG Routine Frequent PVCs 1 Occurrences starting 07/27/2024 until 07/27/2025 [facility] Work Phone: Comment on above: 1 Occurrences starting 07/27/2024 until 07/27/2025 End: 06-06-2023 Echocardiography ECHO Cardiology Routine Chronic systolic heart failure (HCC) 1 Occurrences starting 06/06/2022 until 06/06/2023 [facility] Work Phone: Comment on above: 1 Occurrences starting 06/06/2022 until 06/06/2023 End: 10-30-2024 Echocardiography ECHO Cardiology Routine Chronic 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) 1 Occurrences starting 10/30/2023 until 10/30/2024 [facility] Work Phone: Comment on above: 1 Occurrences starting 10/30/2023 until 10/30/2024 End: 11-25-2024 Echocardiography ECHO Cardiology Routine Atherosclerosis of pechanga coronary artery, unspecified whether angina present, unspecified whether pechanga or transplanted heart 1 Occurrences starting 11/26/2023 until 11/25/2024 [facility] Work Phone: Comment on above: 1 Occurrences starting 11/26/2023 until 11/25/2024 End: 12-22-2024 Echocardiography ECHO Cardiology Routine HFrEF (heart failure with reduced ejection fraction) (HCC) Mitral valve insufficiency, unspecified etiology 1 Occurrences starting 12/23/2023 until 12/22/2024 [facility] Work Phone: Comment on above: 1 Occurrences starting 12/23/2023 until 12/22/2024 End: 12-25-2024 Echocardiography ECHO Cardiology Routine Severe mitral regurgitation Cardiomyopathy, ischemic S/P CABG (coronary artery bypass graft) 1 Occurrences starting 12/26/2023 until 12/25/2024 [facility] Work Phone: Comment on above: 1 Occurrences starting 12/26/2023 until 12/25/2024 End: 2025 Echocardiography ECHO Cardiology Routine Severe mitral regurgitation Status post implantation of mitral valve leaflet clip 1 Occurrences starting 02/20/2024 until 2025 [facility] Work Phone: Comment on above: 1 Occurrences starting 02/20/2024 until 2025 End: 03-30-2025 Echocardiography ECHO Cardiology Routine Cardiomyopathy, ischemic S/P mitral valve clip implantation 1 Occurrences starting 03/30/2024 until 03/30/2025 [facility] Comment on above: 1 Occurrences starting 03/30/2024 until 03/30/2025 End: 07-27-2025 HOLTER MONITOR 48 HOUR HOLTER MONITOR 48 HOUR ECG Routine PVC (premature ventricular contraction) 1 Occurrences starting 07/27/2024 until 07/27/2025 [facility] Work Phone: Comment on above: 1 Occurrences starting 07/27/2024 until 07/27/2025 End: 08-19-2025 HOLTER MONITOR 48 HOUR HOLTER MONITOR 48 HOUR ECG Routine Frequent PVCs 1 Occurrences starting 08/19/2024 until 08/19/2025 [facility] Work Phone: Comment on above: 1 Occurrences starting 08/19/2024 until 08/19/2025 End: 09-18-2025 LUNG DIFFUSION CAPACITY (DLCO) LUNG DIFFUSION CAPACITY (DLCO) PFT Routine Frequent PVCs 1 Occurrences starting 08/19/2024 until 09/18/2025 [facility] Comment on above: 1 Occurrences starting 08/19/2024 until 09/18/2025 End: 10-06-2023 NM PET/CT CARDIAC PERF REST/STRESS NM PET/CT CARDIAC PERF REST/STRESS Radiology Routine Chronic systolic heart failure (HCC) 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 1 Occurrences starting 09/06/2022 until 10/06/2023 [facility] Work Phone: Comment on above: 1 Occurrences starting 09/06/2022 until 10/06/2023 End: 10-06-2023 NM PET/CT CARDIAC VIABILITY NM PET/CT CARDIAC VIABILITY Radiology Routine Chronic systolic heart failure (HCC) 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 1 Occurrences starting 09/06/2022 until 10/06/2023 [facility] Work Phone: Comment on above: 1 Occurrences starting 09/06/2022 until 10/06/2023 RED BLOOD CELLS, ADULT RED BLOOD CELLS, ADULT Blood Bank Routine 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) Ordered: 02/17/2024 [facility] Work Phone: Comment on above: Ordered: 02/17/2024 End: 09-18-2025 SPIROMETRY BASELINE ONLY SPIROMETRY BASELINE ONLY PFT Routine Frequent PVCs 1 Occurrences starting 08/19/2024 until 09/18/2025 [facility] Comment on above: 1 Occurrences starting 08/19/2024 until 09/18/2025 End: 04-17-2025 US Carotid arteries - bilateral US CAROTID BILATERAL Radiology Routine Carotid stenosis, 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, left 1 Occurrences starting 03/18/2024 until 04/17/2025 [facility] Work Phone: Comment on above: 1 Occurrences starting 03/18/2024 until 04/17/2025 End: 09-17-2025 US Carotid arteries - bilateral US CAROTID BILATERAL Radiology Routine Carotid stenosis, 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, left 1 Occurrences starting 08/18/2024 until 09/17/2025 [facility] Work Phone: Comment on above: 1 Occurrences starting 08/18/2024 until 09/17/2025 End: 08-03-2023 US CAROTID ARTERIES [facility] US CAROTID ARTERIES [facility] Vascular Lab Routine Bilateral carotid artery stenosis 1 Occurrences starting 08/03/2022 until 08/03/2023 [facility] Work Phone: Comment on above: 1 Occurrences starting 08/03/2022 until 08/03/2023 [facility] Immunizations Immunization Date Immunization Notes Care Provider [facility] 06-13-2020 diphtheria, tetanus toxoids and pertussis vaccine ARACELI Andrade MD Work Phone: [facility] Payers Date Payer Category Payer Commercial [employer] [facility] [id number] 2018 Unknown MMO MMO MEDICARE SUPPLEMENT [id number] 2018-Present [phone] [address] [place] [address] Indemnity [id number] 2018 Unknown [id number] 2007 Medicare MEDICARE MEDICAR E A AND B [id number] 2007-Present [phone] [place] [address] Medicare [id number] 2007 Medicare [id number] .[id number] 1959 Medicare [id number] 1959 Self-pay [id number] 1959 Unknown [id number] 1942 Unknown [id number] 2.16.840.1.383568.3.579.2.6 47 1942 Unknown [id number] 2.16.840.1.365596.3.579.2.5 93 1942 Unknown [id number] 2.16.840.1.374346.3.579.2.5 93 1942 Unknown [id number] 2.16.840.1.399406.3.579.2.5 93 1942 Unknown [id number] 2.16.840.1.619114.3.579.2.5 93 1942 Unknown [id number] 2.16.840.1.327246.3.579.2.5 93 -194 Unknown [id number] 2.16.840.1.993317.3.579.2.5 93 194 Unknown [id number] 2.16.840.1.230200.3.579.2.5 93 194 Unknown [id number] 2.16.840.1.184107.3.579.2.5 93 194 Unknown [id number] 2.16.840.1.958322.3.579.2.5 93 194 Unknown [id number] 2.16.840.1.742132.3.579.2.5 93 1942 Unknown [id number] 2.16.840.1.211843.3.579.2.5 93 1942 Unknown [id number] 2.16.840.1.680538.3.579.2.5 93 1942 Unknown [id number] 2.16.840.1.421620.3.579.2.5 93 1942 Unknown [id number] 2.16.840.1.874241.3.579.2.5 93 1942 Unknown [id number] 2.16.840.1.078822.3.579.2.5 93 1942 Unknown [id number] 2.16.840.1.423757.3.579.2.5 93 1942 Unknown [id number] 2.16.840.1.497114.3.579.2.1 286 1942 Unknown [id number] 2.16.840.1.751393.3.579.2.1 286 1942 Unknown [id number] 2.16.840.1.867929.3.579.2.1 286 1942 Unknown [id number] 2.16.840.1.159397.3.579.2.1 286 1942 Unknown [id number] 2.16.840.1.546618.3.579.2.1 286 1942 Unknown [id number] 2.16.840.1.737115.3.579.2.1 286 1942 Unknown [id number] 2.16.840.1.352797.3.579.2.1 286 1942 Unknown [id number] 2.16.840.1.730018.3.579.2.1 286 1942 Unknown [id number] 2.16.840.1.236492.3.579.2.1 286 1942 Unknown [id number] 2.16.840.1.613937.3.579.2.1 286 1942 Unknown [id number] 2.16.840.1.900146.3.579.2.1 286 1942 Unknown [id number] 2.16.840.1.230224.3.579.2.1 286 1942 Unknown [id number] 2.16.840.1.040309.3.579.2.1 286 1942 Unknown [id number] 2.16.840.1.604878.3.579.2.1 286 1942 Unknown [id number] 2.16.840.1.511168.3.579.2.1 286 1942 Unknown [id number] 2.16.840.1.015687.3.579.2.1 286 1942 Unknown [id number] 2.16.840.1.719089.3.579.2.1 286 1942 Unknown [id number] 2.16.840.1.792629.3.579.2.1 286 1942 Unknown [id number] 2.16.840.1.041571.3.579.2.1 286 1942 Unknown [id number] 2.16.840.1.964899.3.579.2.1 286 1942 Unknown [id number] 2.16.840.1.795149.3.579.2.1 286 1942 Unknown [id number] 2.16.840.1.171207.3.579.2.1 286 1942 Unknown [id number] 2.16.840.1.016549.3.579.2.1 286 1942 Unknown [id number] 2.16.840.1.900718.3.579.2.1 286 1942 Unknown [id number] 2.16.840.1.656946.3.579.2.1 286 1942 Unknown [id number] 2.16840.1.579572.3.579.2.1 286 1942 Unknown [id number] 2.16.840.1.032428.3.579.2.1 286 1942 Unknown [id number] 2.16.840.1.371174.3.579.2.1 286 1942 Unknown [id number] 2.16.840.1.094785.3.579.2.1 286 1942 Unknown [id number] 2.16.840.1.514468.3.579.2.1 286 1942 Unknown [id number] 2.16.840.1.427294.3.579.2.1 286 1942 Unknown [id number] 2.16.840.1.632349.3.579.2.1 286 1942 Unknown [id number] 2.16.840.1.001836.3.579.2.1 286 1942 Unknown [id number] 2.16.840.1.319349.3.579.2.1 286 1942 Unknown [id number] 2.16.840.1.637513.3.579.2.1 286 1942 Unknown [id number] 2.16.840.1.598945.3.579.2.1 286 1942 Unknown [id number] 2.16.840.1.576219.3.579.2.1 286 1942 Unknown [id number] 2.16.840.1.995938.3.579.2.1 286 1942 Unknown [id number] 2.16.840.1.635511.3.579.2.1 286 1942 Unknown [id number] 2.16.840.1.310491.3.579.2.1 286 1942 Unknown [id number] 2.840.1.690309.3.579.2.1 286 1942 Unknown [id number] 2.16.840.1.636245.3.579.2.1 286 1942 Unknown [id number] 2.16.840.1.891005.3.579.2.1 286 1942 Unknown [id number] 2.16840.1.306164.3.579.2.1 286 1942 Unknown [id number] 2.840.1.934074.3.579.2.1 286 1942 Unknown [id number] 2.16.840.1.609226.3.579.2.1 286 1942 Unknown [id number] 2.16.840.1.575023.3.579.2.1 286 1942 Unknown [id number] 2.16.840.1.812274.3.579.2.1 286 1942 Unknown [id number] 2.16.840.1.087252.3.579.2.1 286 1942 Unknown [id number] 2.16.840.1.392029.3.579.2.1 286 1942 Unknown [id number] 2.16.840.1.022744.3.579.2.1 286 1942 Unknown [id number] 2.16.840.1.397683.3.579.2.1 286 1942 Unknown [id number] 2.16.840.1.401422.3.579.2.1 286 1942 Unknown [id number] 2.16.840.1.057684.3.579.2.1 286 1942 Unknown [id number] 2.16.840.1.399329.3.579.2.1 286 1942 Unknown [id number] 2.16.840.1.375191.3.579.2.1 286 1942 Unknown [id number] 2.16.840.1.884586.3.579.2.1 286 1942 Unknown [id number] 2.16.840.1.600112.3.579.2.1 286 1942 Unknown [id number] 2.16.840.1.467400.3.579.2.1 286 1942 Unknown [id number] 2.16.840.1.105184.3.579.2.1 286 1942 Unknown [id number] 2.16.840.1.429826.3.579.2.1 286 1942 Unknown [id number] 2.16.840.1.827570.3.579.2.1 286 1942 Unknown [id number] 2.16.840.1.357520.3.579.2.1 286 1942 Unknown [id number] 2.16.840.1.079368.3.579.2.1 286 1942 Unknown [id number] 2.16.840.1.252092.3.579.2.1 286 1942 Unknown [id number] 2.16.840.1.977244.3.579.2.1 286 1942 Unknown [id number] 2.16.840.1.697153.3.579.2.1 286 1942 Unknown [id number] 2.16.840.1.115497.3.579.2.1 286 Social History Date Type Detail Facility Start: 04-28-2012 End: 07-17-2019 Tobacco smoking status NHIS Ex-smoker [facility] Work Phone: Start: 04-28-1972 End: 04-28-1982 History of tobacco use Current smoker [facility] Work Phone: Start: 04-28-1972 End: 04-28-1982 History of tobacco use Cigarette Smoker [facility] Work Phone: End: 04-28-1982 History of tobacco use Pipe Smoker [facility] Work Phone: Start: 04-28-2012 End: 08-17-2021 Cigarettes smoked current (pack per day) - Reported 1 [facility] Start: 04-28-2012 End: 07-17-2019 Tobacco use and exposure Smokeless tobacco non-user [facility] Work Phone: Start: 12-04-2021 End: 02-26-2024 Alcohol intake Current drinker of alcohol (finding) [facility] Start: 04-15-2020 History SDOH Alcohol Frequency 2 [facility] Start: 04-15-2020 History SDOH Alcohol Std Drinks 1 [facility] Start: 03-13-2019 History SDOH Alcohol Comment occassional [facility] Start: 1940 Sex Assigned At Male C [facility] Start: 08-06-2021 End: 06-06-2022 Exposure to SARS-CoV-2 (event) Not sure [facility] Start: 10-25-2022 [facility] Start: 04-15-2020 End: 08-17-2021 Alcohol Use Disorder Identification Test - Consumption [AUDIT-C] [facility] How often to you hav e a drink containing alcohol? Monthly or less [facility] How many standard dr inks containing alcohol do you have on a typical day? 1 or 2 [facility] Frequency of Binge Drinking Not on file [facility] Start: 02-22-2019 Gender identity Identifies as male gender (finding) [facility] Start: 02-22-2019 Sexual orientation Heterosexual (prince bronwyn) [facility] Has the [employer], [employer], [employer], or water [employer] threatened to shut off services in your home in past 12Mo No [facility] Work Phone: (I/We) worried lizzie er (my/our) food would run out before (I/we) got money to buy more. Never true [facility] In the past 12 month s, was there a time when you were not able to pay the mortgage or rent on time? Yes [facility] Start: 08-19-2024 End: 09-22-2024 Alcoholic beverage intake Ex-drinker (finding) [facility] Are you now , , , , never or living with a partner? [facility] How often do you hav e 6 or more drinks on 1 occasion? Never [facility] Do you feel stress - tense, restless, nervous, or anxious, or unable to sleep at night because your mind is troubled all the time - these days [OSQ] Not at all [facility] Start: 08-17-2021 Alcohol Comment 1 beer/month [facility] Start: 1940 Sex Assigned At Not on file P [facility] Start: 04-19-2015 [facility]finding[facility] NEGATED: Highlighted rowStart: NINF History of tobacco use Passive smoker [facility] Medical Equipment Procedure Code Equipment Code Equipment Origin al Text Equipment Identifier Dates Jackson Cv 6x1in Thk1.65mm Ptfe - [id number] Start: 05-01-2012 Comment on above: Description: used fo r plrdgetts. Patch Cv 8x.8cm Tapr Vsgrd Bov - [id number] Start: 07-01-2012 Comment on above: Description: Right C arotid [id number] Start: 03-24-2019 [id number] Start : 03-16-2019 [id number] Rossy almonte Mri [id number] Start: 03-24-2019 [id number] Reli ance 4-Front [id number] Start: 03-24-2019 [id number] Harper clip Xt Delivery System - [id number] Start: 02-18-2024 Sys Kit 1 Sgc & Up To 3 Clips - [id number] Start: 02-18-2024 System Vascade 6 /7fr Collagen Compression Bioabsorbable Vascular - [id number] Start: 03-04-2024 Stent Precise Pr o Rx 8mm Nitinol 40mm 135cm Vascular Self Expand Micromesh - [id number] Start: 03-04-2024 Goals Date Patient Goal Desired Activity /State Personal health goal Personal health goal Comment on above: Formatting of this n ote might be different from the original. Evaluation of progress towards goal: To return home safely with spouse and attend outpatient therapy. Clinical Notes 05-01-2012 to 10-17-2024 Telephone Encounter - Nj Wei MD - 10/08/2024 4:06 PM ESTTelephone Encounter - Nj Wei MD - 10/08/2024 4:06 PM ESTTelephone Encounter - Ema Rankin RN - 10/07/2024 8:31 AM EST Note Date & Type Note Facility 10-17-2024 Note [facility] 10-17-2024 Note [facility] 10-16-2024 Note [facility] 10-16-2024 Note [facility] 10-16-2024 Note [facility] 10-16-2024 Note [facility] 10-16-2024 Note [facility] 10-15-2024 Note [facility] 10-15-2024 Note [facility] 10-15-2024 Note [facility] 10-15-2024 Note [facility] 10-15-2024 Note [facility] 10-15-2024 Note [facility] 10-15-2024 Note [facility] 10-15-2024 Note [facility] 10-15-2024 Note [facility] 10-14-2024 Note [facility] 10-14-2024 Note [facility] 10-14-2024 Note [facility] 10-14-2024 Note [facility] 10-14-2024 Note [facility] 10-14-2024 Note [facility] 10-13-2024 Note [facility] 10-13-2024 Note [facility] 10-13-2024 Note [facility] 10-13-2024 Note [facility] 10-12-2024 Note [facility] 10-12-2024 Note [facility] 10-12-2024 Note [facility] 10-12-2024 Note [facility] 10-12-2024 Note [facility] 10-12-2024 Note [facility] 10-11-2024 Note [facility] 10-10-2024 Note [facility] 10-09-2024 Note [facility] 10-09-2024 Note [facility] 10-09-2024 Note [facility] 10-09-2024 Note [facility] 10-09-2024 Note Occupational Therapy Name: José Miguel Antonio Date of : 1940 Today's Date: 10/09/24 Pt is unable to be seen for therapy at this time secondary to requested to have tx later this afternoon Check No Charge Time attempted: 1120 [facility] 10-09-2024 Note [facility] 10-09-2024 Note [facility] 10-09-2024 Note [facility] 10-08-2024 Note [facility] 10-08-2024 Telephone encounter Note EP STAFF ADDENDUM: Called Dr. Gorman to return his call and updated him on the course of events when I saw the patient. Patient has had ICD shocks and VT and they will either re-try Amiodarone or consider Quinidine or reassess for thrombus and see if he can be a candidate for an ablation. Nj Wei MD October 08, 2024 4:08 PM [facility] Work Phone: 10-08-2024 Miscellaneous Notes EP STAFF ADDENDUM: Called Dr. Gorman to return his call and updated him on the course of events when I saw the patient. Patient has had ICD shocks and VT and they will either re-try Amiodarone or consider Quinidine or reassess for thrombus and see if he can be a candidate for an ablation. Nj Wei MD October 08, 2024 4:08 PM documented in this encounter [facility] 10-08-2024 Note [facility] 10-08-2024 Note [facility] 10-08-2024 Note [facility] 10-07-2024 Note [facility] 10-07-2024 Note [facility] 10-07-2024 Note [facility] 10-07-2024 Note [facility]) is unable to accept the patient. Alternative placement options are being considered. [facility] 10-07-2024 Telephone encounter Note Contacted the patient's daughter. The patient is currently admitted to [facility]. His liver enzymes are elevated. Mexiletine has been discontinued. He continues to have PVCs. She wants recommendations. Instructed her to have the treating staff contact Dr. Wei. Ema Rankin, RN [facility] 10-07-2024 Miscellaneous Notes Contacted the patient's daughter. The patient is currently admitted to [facility]. His liver enzymes are elevated. Mexiletine has been discontinued. He continues to have PVCs. She wants recommendations. Instructed her to have the treating staff contact Dr. Wei. Ema Rankin RN October 07, 2024 Patient Contact Number: [phone] Patient last seen within the last year: Yes Reason For Call: Medication Issue/Question: Physician:Nj Wei MD Patient was informed that non-urgent calls may be returned within the next three business days. Yes The patients daughter Charu called to report that her dad is admitted to [facility] as of 09/29/24 due to not eating, nausea. They believe he was having a reaction to Mexiletine. He is having PVC's due to he was off the medication. The facility needs to know today if he can go back Amiodarone or a lower does of Mexiletine. Frank David documented in this encounter [facility] 10-07-2024 Telephone encounter Note October 07, 2024 Patient Contact Number: [phone] Patient last seen within the last year: Yes Reason For Call: Medication Issue/Question: Physician:Nj Wei MD Patient was informed that non-urgent calls may be returned within the next three business days. Yes The patients daughter Charu called to report that her dad is admitted to [facility] as of 09/29/24 due to not eating, nausea. They believe he was having a reaction to Mexiletine. He is having PVC's due to he was off the medication. The facility needs to know today if he can go back Amiodarone or a lower does of Mexiletine. Le Dickesn, Admin [facility] 10-06-2024 Note [facility] 10-06-2024 Note [facility] 10-06-2024 Note [facility] 10-06-2024 Note [facility] 10-06-2024 Note [facility] 10-05-2024 Note [facility] 10-05-2024 Note [facility] 10-05-2024 Note [facility] 10-04-2024 Note [facility] 10-04-2024 Note [facility] 10-03-2024 Note [facility] 10-03-2024 Note [facility] 10-03-2024 Note [facility] 10-03-2024 Note [facility] 10-02-2024 Note [facility] 10-02-2024 Note [facility] 10-02-2024 Note [facility] 10-02-2024 Note [facility] 10-02-2024 Note [facility] 10-02-2024 Note [facility] 10-01-2024 Note [facility] 10-01-2024 Note Updates sent to Molly Vidal. KANDI following [facility] 10-01-2024 Note [facility] 10-01-2024 Note [facility] 10-01-2024 Note [facility] 10-01-2024 Note [facility] 09-30-2024 Note Satisfactory for romy muñoz. Examination of the ThinPrep slide and cell block reveals benign mesothelial cells, inflammation and proteinaceous debris. [facility] Comment on above: Performed By: #### L AB13 ####[facility] ([facility])[address] [place] [address] 09-30-2024 Note [facility] 09-30-2024 Note [facility] 09-30-2024 Note [facility] 09-29-2024 Note [facility] 09-29-2024 Note [facility] 09-25-2024 Note [facility] 09-25-2024 Note [facility] 09-24-2024 Note [facility] 09-23-2024 Note [facility] 09-23-2024 Note [facility] 09-22-2024 Note [facility] 09-22-2024 Note [facility] 09-21-2024 Note [facility] 09-21-2024 History of Present illness Narrative HEART FAILURE PROCEDURAL CONSENT NOTE Surgery/Procedure Date: Procedure: RHC Informed Consent: The risks including radiation skin injury, benefits, and anticipated outcomes of the procedure, the risk and benefits of the alternatives to the procedure,and the roles and tasks of the personnel to be involved, were discussed with the patient, and the patient consents to the procedure and agrees to proceed. Consented by: Misha Lemons MD See separate Procedural Sedation Consent form if sedation is to be administered. UNIVERSAL PROTOCOL / SAFETY CHECKLIST Procedure to be Performed: RHC Sign In: A Moment of CARE was completed. Personnel directly involved with the procedure wore the appropriate PPE (Personal Protective Equipment). Patient/Surrogate Stated/Verified: PATIENT VERIFIED(optional for EMERGENT procedures): Patient name, Date of , Relevant allergies, and The intended procedure Time Out Communication: Intended patient and procedure match the source documents. Consent documented and matches the intended procedure. Relevant labs, photos, and/or imaging studies have been reviewed. Sign Out: SIGN OUT (optional for EMERGENT procedures): No specimen collected. Misha Lemons MD History and Physical: José Miguel Antonio Jr. is a 84 year old year-old patient here for Right Heart Catheterization for the indication of worsening heart failure. Last seen 09/21/2024 with documented H&P verified. Pertinent examination today revealed: Lungs: clear to auscultation Heart: Regular rate & rhythm, S1, S2, no S3, No murmers or clicks Post Procedural Plan: Transfer back to inpatient nursing unit SIGNATURE: Misha Lemons MD PATIENT NAME: José Miguel Antonio Jr. DATE: September 21, 2024 TIME: 1:21 PM documented in this encounter [facility] 09-21-2024 Note [facility] 09-21-2024 Note [facility] 09-21-2024 Note [facility] 09-20-2024 Note [facility] 09-20-2024 Note [facility] 09-19-2024 Note [facility] 09-19-2024 Note [facility] 09-18-2024 Note [facility] 09-18-2024 Note [facility] 09-18-2024 Note [facility] 09-18-2024 Note In-Office Device Romy luation DUAL LEAD ICD EVALUATION: *Room: [facility] * Presenting Rhythm: /VS * Underlying Rhythm: Sinus with rare PVC * Battery Status: Battery is at OK, 8.5 years. * Atrial Arrhythmias: None since remote from yesterday. * Ventricular Arrhythmias: There have been 2 ventricular detections since the remote yesterday. * Lead Measurements: Sensing and lead impedances are stable. * Implant Site/Symptoms: The incision and pocket are pain-free (0/10), well healed and without signs of erosion or infection. No arm swelling, syncope, pre-syncope or device related pocket stimulation. * Follow Up: As needed while in hospital. Appropriate VT Therapy: Successful * There was 1 treated episode of VT that violated the VF zone ~6pm on 09/17/24. It was initially treated with an unsuccessful ATPx1 before it was terminated with a 41J shock. * Total episodes: 1 * Number of ATP therapy: 1 * Number of shocks delivered: 1 NOTE TO PROVIDERS: Cardiac Implanted Devices Flowsheets contain detailed Programming and Evaluation data. Full Docket/PDF found below under Scanned Documents . [facility] 09-17-2024 Note [facility] 09-17-2024 Note HNO ID: [id number] Author: MAGGIANO, YOSELIN, RT(R) Service: ? Author Type: Technologist Type: Progress Notes Filed: 09/17/2024 15:48 Note Text: xray: chest [facility] 09-17-2024 Telephone encounter Note Recent ICD remote shows patient received an ICD shock yesterday 09/16/24 and had 20 other VT episodes treated with ATP. Patient was hospitalized locally at [facility] 09/12-09/16/24 for edema and volume overload. Diuretics were adjusted. Prior to hospitalization, patient had stopped taking Amiodarone due to a rash and Dr. Wei recommended start Mexiletine. Patient has not yet started the Mexiletine. Discussed with Dr. Wei who recommends the patient go to the ED due to recurring VT and ICD shock. Spoke with patient and daughter Charu. They are agreeable and will be coming to [facility] Main ED. [facility] 09-17-2024 Miscellaneous Notes Recent ICD remote shows patient received an ICD shock yesterday 09/16/24 and had 20 other VT episodes treated with ATP. Patient was hospitalized locally at [facility] 09/12-09/16/24 for edema and volume overload. Diuretics were adjusted. Prior to hospitalization, patient had stopped taking Amiodarone due to a rash and Dr. Wei recommended start Mexiletine. Patient has not yet started the Mexiletine. Discussed with Dr. Wei who recommends the patient go to the ED due to recurring VT and ICD shock. Spoke with patient and daughter Charu. They are agreeable and will be coming to [facility] Main ED. documented in this encounter [facility] 09-11-2024 Telephone encounter Note Spoke with patient: He has been taking torsemide 20 mg BID with additional tablet as needed. He will be take 40 mg for his afternoon dose today. Dr. Dom reid with taking torsemide 40 mg BID. Follow up with lab work mid last week. Ernestina Alvarez RN September 11, 2024 1:22 PM [facility] 09-11-2024 Miscellaneous Notes Spoke with patient: He has been taking torsemide 20 mg BID with additional tablet as needed. He will be take 40 mg for his afternoon dose today. Dr. Fernandes okay with taking torsemide 40 mg BID. Follow [...] asking if he may need IV diuretics? Fuentes Springer RN September 10, 2024 2:08 PM September 10, 2024 Name: José Miguel Antonio Jr. Patient Contact Number: [phone] (home) [phone] (cell) Date of last office visit: 08/19/2024 Reason For Call: Pt called stating that he is gaining water on his legs. The medication that he on doesn't seems to be working he is currently using Torsemise 20 mg. And he want to know if theres any other option. Physician: Dorcas Fernandes MD Patient was informed that non-urgent calls may be returned within the next three business days. Yes Martha Prado documented in this encounter [facility] 09-10-2024 Telephone encounter Note Called the patient [...] asking if he may need IV diuretics? Fuentes Springer RN September 10, 2024 2:08 PM [facility] 09-10-2024 Telephone encounter Note September 10, 2024 Name: José Miguel Antonio Jr. Patient Contact Number: [phone] (home) [phone] (cell) Date of last office visit: 08/19/2024 Reason For Call: Pt called stating that he is gaining water on his legs. The medication that he on doesn't seems to be working he is currently using Torsemise 20 mg. And he want to know if theres any other option. Physician: Dorcas Fernandes MD Patient was informed that non-urgent calls may be returned within the next three business days. Yes Martha Prado [facility] 09-07-2024 Telephone encounter Note Spoke to patient's daughter. Let her know we would update Dr Wei for next steps. She notes that her father said his feet were swollen, red and leaking . Advised to update Dr Fernandes and to have PCP look at feet. Winsome Ivory RN [facility] 09-07-2024 Miscellaneous Notes Spoke to patient's daughter. Let her know we would update Dr Wei for next steps. She notes that her father said his feet were swollen, red and leaking . Advised to update Dr Fernandes and to have PCP look at feet. Winsome Ivory, RN September 07, 2024 Patient Contact Number: [phone] (home) [phone] (cell) Patient last seen within the last year: Yes Reason For Call: Follow-up Questions: Patient's daughter Charu called stated the patient started amiodarone on 08/31 and he has broken out severely from the medication rash started on 09/03. They contacted the nurse monotype machinist and was advised to stop the medication and is feeling better. Please contact Charu [phone] Thank you Adm Galilea [employer] Teacher documented in this encounter [facility] 09-07-2024 Telephone encounter Note September 07, 2024 Patient Contact Number: [phone] (home) [phone] (cell) Patient last seen within the last year: Yes Reason For Call: Follow-up Questions: Patient's daughter Charu called stated the patient started amiodarone on 08/31 and he has broken out severely from the medication rash started on 09/03. They contacted the nurse monotype machinist and was advised to stop the medication and is feeling better. Please contact Charu [phone] Thank you Adm Galilea [employer] Teacher [facility] 09-03-2024 Telephone encounter Note Contacted the patient. He reports at the time of the event he was on a call that made him upset. He denies any symptoms during the event. Ema Rankin, INOCENTE [facility] 09-03-2024 Miscellaneous Notes Contacted the patient. He reports at the time of the event he was on a call that made him upset. He denies any symptoms during the event. Ema Rankin RN September 03, 2024 Patient Contact Number: [phone] (home) [phone] (cell) Patient last seen within the last year: Yes Reason For Call: Follow-up Questions: Patient called stated he recalls what he was doing at the time he was agitated on a phone call. Thank you Adm Galilea [employer] Teacher Contacted the patient. He feels ok. He [...] mildly tachy when in AF AP 2% BANKRUPTCY LAW SPECIALIST 15% documented in this encounter [facility] 09-03-2024 Telephone encounter Note September 03, 2024 Patient Contact Number: [phone] (home) [phone] (cell) Patient last seen within the last year: Yes Reason For Call: Follow-up Questions: Patient called stated he recalls what he was doing at the time he was agitated on a phone call. Thank you Adm Galilea [employer] Teacher [facility] 09-03-2024 Telephone encounter Note Contacted the patient. He feels ok. He was unaware of the episode on 09/02. Will review with Dr. Wei. Ema Rankin RN [facility] 09-03-2024 Telephone encounter Note ----- Message from Zahra Salgado RN sent at 09/03/2024 8:25 AM [facility] ----- Regarding: pt update Dr. Wei and [...] mildly tachy when in AF AP 2% BANKRUPTCY LAW SPECIALIST 15% [facility] 08-28-2024 Telephone encounter Note Date: August [...] x-ray and pulmonary function. Ema Rankin RN [facility] 08-28-2024 Telephone encounter Note ----- Message from Lisa Whaley RN sent at 08/27/2024 9:12 AM EST ----- Regarding: Ongoing AFL Dr. Wei, Recent remote transmission shows this patient has been in ongoing AFL for ~5 days (since 08/22/24). Patient states he feels well and is taking all prescribed medications including Eliquis. Full report available in murj for you to review. ThanksLisa RN Device [facility] 08-28-2024 Miscellaneous Notes Date: August 28, [...] to review. Thanks, Lisa [facility] documented in this encounter [facility] 08-19-2024 Note [facility] 08-19-2024 History of Present illness Narrative HOLTER MONITOR APPLICATION Patient Name: José Miguel Antonio Jr. Clinic Number: [id number] Chest is cleansed with alcohol Skin prep [...] or 48 hours 6.) Call with problems [phone] Patient expresses good verbal understanding of instructions Jose Kahn documented in this encounter [facility] 08-19-2024 Instructions Carmela Fernandes MD - 08/19/2024 2:08 PM EST -Blood work today -will consider spironolactone 12.5 mg daily pending blood work -You have about 5 extra pounds on you -will add you on 10/05/2024 as in-person visit -48hr holter documented in this encounter [facility] 08-19-2024 Note [facility] 08-19-2024 History of Present illness Narrative Images from the original note were not included. [facility] SECTION OF HEART FAILURE and CARDIAC TRANSPLANT MEDICINE OUTPATIENT VISIT DATE August 19, 2024 OUTPATIENT VISIT TYPE Established Patient PRIMARY CARE PHYSICIAN: Samm Thompson [address] [place] [address] CHIEF COMPLAINT: HFrEF NURSING INTAKE (Patient s [...] disease) Heart failure, acute systolic ([facility]) Hypertension Hypothyroid Myocardial infarct, old Occlusion and stenosis of carotid artery without mention of cerebral infarction Prostate cancer ([facility]) 2020 PVC (premature ventricular contraction) PVD (peripheral vascular disease) ([facility]) 11/17/2012 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 VALVE INSERTER THYROID 60 mg tablet Take 1 tablet by mouth once daily. Give 1 tablet by mouth every 24 hours for give with 15mg =75mg total thyroid (VALVE INSERTER THYROID) 15 mg tablet Take 1 tablet [...] maximal dimension of 4.3 cm. - Percutaneous hcvq-fz-[id number] repair of the mitral valve with 1 [...] FOR LVH, MAY BE NORMAL VARIANT ( [place] product ) LATERAL T WAVE ABNORMALITY ABNORMAL [...] stenting #Severe ICM (EF 15%) s/p DC-ICD (2019) #Prior CABG (2011, last cath in 2021 [...] diet, exercise, other non-medical management as above. Dorcas Fernandes MD [facility] Section Of Heart Failure and Cardiac Transplant Medicine [facility] Desk J3-[address] [place] [address] documented in this encounter [facility] 08-19-2024 History of Present illness Narrative Images from the original note were not included. [facility] Department of Cardiovascular Medicine SECTION OF CARDIAC PACING and ELECTROPHYSIOLOGY OUTPATIENT VISIT DATE August 19, 2024 OUTPATIENT VISIT TYPE ESTABLISHED PRIMARY CARE PHYSICIAN: Samm Thompson [address] [place] [address] REFERRING PHYSICIAN: No referring provider defined for [...] of cerebral infarction Prostate cancer (HCC) 2020 PVC (premature ventricular contraction) PVD (peripheral vascular disease) ([facility]) 11/17/2012 Stroke (cerebrum) ([facility]) 09/03/2022 Systolic heart failure ([facility]) Thyroid disorder 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 kidney disease, unspecified CKD stage, unspecified whether oil heaterman insulin use ([facility]) 04/26/2023 Ventricular tachycardia ([facility]) 04/28/2012 PAST SURGICAL HISTORY Procedure [...] mg by mouth two times a day. VALVE INSERTER THYROID 60 mg tablet Take 1 tablet by mouth once daily. Give 1 tablet by mouth every 24 hours for give with 15mg =75mg total thyroid (VALVE INSERTER THYROID) 15 mg tablet Take 1 tablet [...] with Atrial Fibrillation and AFL * AT/AF [place]: 2% * On Eliquis. Non-sustained Ventricular Tachycardia [...] maximal dimension of 4.3 cm. - Percutaneous fpxc-ai-nimc repair of the mitral valve with 1 [...] 10:33 PM This note was generated using Pymetrics voice recognition system. Please excuse any typographical errors. documented in this encounter [facility] 08-19-2024 Note [facility] 08-17-2024 Telephone encounter Note Contacted the patient. He is currently taking torsemide. She believes his abdomen is swollen. His weight is the same. He is not having SOB. Instructed her to take the patient to the ED if he is having worsening symptoms. Instructed her to contact Dr. Fernandes's office. Transferred her to Dr. Fernandes's office. Ema Rankin RN [facility] 08-17-2024 Miscellaneous Notes Contacted the patient. He is currently taking torsemide. She believes his abdomen is swollen. His weight is the same. He is not having SOB. Instructed her to take the patient to the ED if he is having worsening symptoms. Instructed her to contact Dr. Fernandes's office. Transferred her to Dr. Fernandes's office. Ema Rankin, RN August 17, 2024 Patient Contact Number: [phone] (home) [phone] (cell) Patient last seen within the last year: Yes Reason For Call: Follow-up Questions: Patient's daughter Charu called stated the patient is retaining water and she would like to know if this is something that can be addressed at the visit or should she count Dr. Fernandes's office? Please advise [phone] Thank you Adm Galilea [employer]ori Preschool Teacher documented in this encounter [facility] 08-17-2024 Telephone encounter Note August 17, 2024 Patient Contact Number: [phone] (home) [phone] (cell) Patient last seen within the last year: Yes Reason For Call: Follow-up Questions: Patient's daughter Charu called stated the patient is retaining water and she would like to know if this is something that can be addressed at the visit or should she count Dr. Fernandes's office? Please advise [phone] Thank you Adm Galilea Montessori Preschool Teacher [facility] 08-14-2024 Telephone encounter Note Images from [...] him to get a colonoscopy. Thanks - Nadreas Change in plan per Dr. Fernandes: Stay [...] Lo RN August 14, 2024 5:06 PM [facility] 08-14-2024 Miscellaneous Notes Images from the original note were not included. Carmela Fernandes MD Alfonsi, Dominique; [facility] J3-4 Opd Nurses; Rubén Bucio MD; Ep [...] to 5. Please assist. Thank you, Pablito [place] documented in this encounter [facility] 08-14-2024 Telephone encounter Note Patient advised he is having blood in his stool and is worried his Eliquis is causing this because his dosage was uppsed from 2.5 to 5. Please assist. Thank you, Pablito [place] [facility] 08-14-2024 Telephone encounter Note OPENED IN ERROR [facility] 08-14-2024 Miscellaneous Notes OPENED IN ERROR documented in this encounter [facility] 08-03-2024 Telephone encounter Note Returned phone call from Charu and informed her we do not have the results of his 48 Hour holter at this time. I will discuss with out holter department to see if they received the monitor. Kinga Guy RN [facility] 08-03-2024 Miscellaneous Notes Returned phone call from Charu and informed her we do not have the results of his 48 Hour holter at this time. I will discuss with out holter department to see if they received the monitor. Kinga Guy RN August 03, 2024 Patient Contact Number: [phone] (home) [phone] (cell) Patient last seen within the last year: Yes Reason For Call: Test Results Patient's daughter Charu called requesting to review the results of the patient's monitor. Please advise Charu can be reached [phone] Thank you Adm Galilea [employer] Pres[employer] Teacher documented in this encounter [facility] 08-03-2024 Telephone encounter Note August 03, 2024 Patient Contact Number: [phone] (home) [phone] (cell) Patient last seen within the last year: Yes Reason For Call: Test Results Patient's daughter Charu called requesting to review the results of the patient's monitor. Please advise Charu can be reached [phone] Thank you Adm Galilea [employer]essori Preschool Teacher [facility] 07-30-2024 Telephone encounter Note 1. Have [...] Pt instructed to contact 24-hour nurse hotline [phone] for any questions or concerns. Pt verbalized understanding. PD nurse confirmed/verified patient's and full name. All clear, closing statement given. Cullen Calvert RN [facility] 07-30-2024 Miscellaneous Notes 1. Have you [...] Pt instructed to contact 24-hour nurse hotline [phone] for any questions or concerns. Pt verbalized understanding. PD nurse confirmed/verified patient's and full name. All clear, closing statement given. Cullen Calvert RN documented in this encounter [facility] 07-27-2024 Note [facility] 07-27-2024 History of Present illness Narrative HOLTER MONITOR APPLICATION Patient Name: José Miguel Antonio Jr. Clinic Number: [id number] Chest is cleansed with alcohol Skin prep [...] or 48 hours 6.) Call with problems [phone] Patient expresses good verbal understanding of instructions Isaura Paulino TECHNOLOGIST documented in this encounter [facility] 07-26-2024 Note [facility] 07-26-2024 Note [facility] 07-25-2024 Note [facility] 07-24-2024 Note [facility] 07-24-2024 Note [facility] 07-23-2024 Note [facility] 07-23-2024 Note [facility] 07-22-2024 Note [facility] 07-22-2024 Note [facility] 07-21-2024 Telephone encounter Note Called patient to inform him to go to [facility] ER for elevated troponin levels per Dr. Fernandes. Patient verbalized understanding and was being dropped off at [facility] ER by daughter. Mary Bourgeois RN July 21, 2024 2:09 PM [facility] 07-21-2024 Miscellaneous Notes Called patient to inform him to go to [facility] ER for elevated troponin levels per Dr. Fernandes. Patient verbalized understanding and was being dropped off at [facility] ER by daughter. Mary Bourgeois RN July 21, 2024 2:09 PM documented in this encounter [facility] 06-02-2024 Telephone encounter Note deferred Patient's name appears on the PRO T[place]ig Report for a PHQ-9 score of 16. Patient completed this questionnaire prior to his appointment with Cardiology. Oncology SW assessment deferred. MARIAM Ryder [facility] 06-02-2024 Miscellaneous Notes deferred Patient's name appears on the PRO Taussig Report for a PHQ-9 score of 16. Patient completed this questionnaire prior to his appointment with Cardiology. Oncology SW assessment deferred. MARIAM Ryder documented in this encounter [facility] 06-02-2024 Telephone encounter Note Patient seen by Dr. Dom CRUZ 06/01/2024. Irlanda Lo RN June 02, 2024 8:54 AM [facility] 06-02-2024 Miscellaneous Notes Patient seen by Dr. Dom CRUZ 06/01/2024. Irlanda Lo RN June 02, 2024 [...] spironolactone by Dr. Fernandes. Attempted to call [facility] [phone] but unable to reach nurse. left with office number [phone]. Irlanda Lo RN May 22, 2024 2:48 PM Karly from [facility] ([address]) is calling because patient wants to know if he should continue or stop farxiga. He is also wondering about spironolactone 12.5mg but his bp is low. These were his discharge orders from his recent hospital stay. Nurse and patient wanting clarity L/S:03/31/24 Karly # [phone] documented in this encounter [facility] 06-01-2024 Note [facility] 06-01-2024 History of Present illness Narrative Answers submitted by the patient [...] No Headaches: No [facility] Thor[facility] [place] Department of Cardiovascular Medicine VIRTUAL VIDEO VISIT ESTABLISHED OUTPATIENT VISIT SERVICE DATE: 06/01/2024 Patient: José Miguel Antonio SERVICE TIME: 2:59 PM : 1940 This is a virtual video visit. It required patient-provider interaction for the medical decision making as documented below. José Miguel Antonio Jr. has consented to this video encounter. I have communicated my name and active licensure. The patient's identity and physical location were verified at the time of this visit. Either the patient or their legal kiosk sales representative has been informed of the risks [...] 03/09/24) who presented as a transfer from [facility] for continued evaluation and management of c/f GIB on AC. Given his significant cardiac history and that he follows with [facility] Cardiology, he was admitted to the Clinical [...] and tolerated it. He was transferred to [facility] at request of his family as he [...] and diastolic congestive heart failure ([facility]) 09/03/2022 Dyslipidemia Gastrointestinal hemorrhage 05/11/2024 GERD (gastroesophageal reflux disease) Heart failure, acute systolic ([facility]) Hypertension Hypothyroid Myocardial infarct, old Occlusion and stenosis of carotid artery without mention of cerebral infarction Prostate cancer ([facility]) 2020 PVD (peripheral vascular disease) ([facility]) 11/17/2012 Stroke (cerebrum) ([facility]) 09/03/2022 Systolic heart failure ([facility]) Thyroid disorder 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 kidney disease, unspecified CKD stage, unspecified whether mcc insulin use ([facility]) 04/26/2023 Ventricular tachycardia ([facility]) 04/28/2012 PAST SURGICAL HISTORY Procedure [...] Take 1 tablet by mouth once daily. VALVE INSERTER THYROID 15 mg tablet Take 1 tablet [...] 2024 2:59 PM documented in this encounter [facility] 05-22-2024 Telephone encounter Note Images from the [...] spironolactone by Dr. Fernandes. Attempted to call [facility] [phone] but unable to reach nurse. MELITON left with office number [phone]. Irlanda Lo RN May 22, 2024 2:48 PM [facility] 05-20-2024 Telephone encounter Note Karly from [facility] ([address]) is calling because patient wants to know if he should continue or stop farxiga. He is also wondering about spironolactone 12.5mg but his bp is low. These were his discharge orders from his recent hospital stay. Nurse and patient wanting clarity L/S:03/31/24 Karly # [phone] [facility] 05-15-2024 Note [facility] 05-15-2024 Note [facility] 05-14-2024 Note [facility] 05-13-2024 Note [facility] 05-12-2024 Note [facility] 05-12-2024 Note [facility] 05-12-2024 Note [facility] 05-11-2024 Note [facility] 05-11-2024 Note [facility] 05-10-2024 Note [facility] 05-09-2024 Note HNO ID: [id number] Author: PETE PRATT RN Service: Care Management Author Type: Registered Nurse Type: Care Mgt Progress Note Filed: 05/09/2024 09:24 Note Text: CARE MANAGEMENT PROGRESS NOTE SERVICE DATE: 05/09/2024 SERVICE TIME: 9:24 AM LOS: 3 days Patient to be transferred to [facility] at 1pm via MMT. Informed accepting SNF [facility] of transfer. SIGNATURE: Pete Pratt RN PATIENT NAME: José Miguel Antonio JrTitus DATE: May 09, 2024 TIME: 9:23 AM PAGER/CONTACT #: [phone] [facility] 05-09-2024 Note HNO ID: [id number] Author: CARINA PARISI APRN.CNP Service: Hospital Medicine [...] GI consult -Cont to monitor Carina Parisi APRN.CNP May 09, 2024 2:00 AM [facility] 05-08-[address] Fernandes called the daughter. Fuentes Springer RN May 08, 2024 5:15 PM [facility] 05-08-[address] Fernandes called the daughter. Fuentes Springer RN May 08, 2024 5:15 PM Called Charu and relayed message from Dr. Fernandes. While on the phone, daughter stated patient is in the hospital now and the physicians are planning an EGD and colonoscopy and daughter wants to proceed but would like Dr. Fernandes to comment on the plan. Fuentes Springer RN May 08, 2024 12:11 PM Images from the original note were not included. Dorcas Fernandes MD You2 days ago EDEN Moncada I meant Xarelto not eliquis! Dorcas Fernandes MD You2 days ago EDEN Zheng, [...] is too tired. Please call her at [phone] Charu. Thank you, Sandeep documented in this encounter [facility] 05-08-2024 Note HNO ID: [id number] Author: JAMIE HEREDIA MD Service: Hospital Medicine Author Type: Physician Type: Progress Notes Filed: 05/08/2024 21:02 Note Text: DEPARTMENT OF HOSPITAL MEDICINE PROGRESS NOTE SERVICE DATE: 05/08/2024 SERVICE TIME: 6:01 PM Hospital Medicine/Primary Attending: Jamie Heredia MD NIGHT AND WEEKEND COVERAGE: MARIN COVERAGE: Days: [phone], please contact via [employer] Nights: - floor: please page CC Hospitalist night cover [phone] - 4W: please page CC Hospitalist night cover #[phone] - 5th floor: please page CC Hospitalist night cover #[phone] - SDU (17:00 - 19:00): Please page #[phone] - SDU (19:00 - :00): Please call [facility]ospital at [phone] Subjective INTERVAL HPI: Patient was seen and [...] L CEA was done by Neuro-IR at [facility] Virtual follow up by Neurology on 03/18--> was told to keep ASA at 325 mg daily Telephone communication with neurology--> dc plavix and restarted xarelto in April 01 along with asa 325 mg Since March, noted steady drop in hgb as well as iron PCP in [place] started patient on IV iron infusions Was last seen by his vascular surgeon in 09/03/2022 Today 05/08/24 No chest pain No SOB Tolerating regular diet Is receiving bowel prep in preparation for scopes on Saturdayga on hold per anesthesia's recommendations Noted patient's [...] and Airways Line Duration Peripheral 05/06/24 1706 [facility] Short Right Antecubital 20 Gauge 2 [...] artery disease involving coronary bypass graft of pechanga heart without angina pectoris (more content not included)... [facility] 05-08-2024 Note HNO ID: [id number] Author: PAULETTE ARMENDARIZ LISW Service: Care Management Author Type: Intake Rn Type: Care Mgt Progress Note Filed: 05/08/2024 13:53 Note Text: CARE MANAGEMENT PROGRESS NOTE SERVICE DATE: 05/08/2024 SERVICE TIME: 1344 LOS: 2 days Needs Prior to Discharge: Patient/Family [facility] beds. Met with pt to discuss further. Pt states he was seen by GI today and is trying to decide if he wants to pursue with EGD and colonoscopy on Saturday per their recommendations. He was pleased to learn [facility] will accept but states he will put a call out to [place] to talk about bed availability. 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 After he talks with [place] he will make final decision. As he [...] 08, 2024 TIME: 1:44 PM PAGER/CONTACT #: [phone] [facility] 05-08-2024 Note HNO ID: [id number] Author: JESUSITA MELO CT Service: Radiology Author [...] PATIENT PRESENTS WITH AN IMPLANTABLE OR ATTACHED SHAPER HAND: No RADIOLOGY DEPARTMENT: CT; Exam(s) Completed: Abdomen/Pelvis PERIPHERAL IV DATA: Not applicable SIGNED BY: KASSI RITCHIE May 08, 2024 1:33 PM [facility] 05-08-2024 Telephone encounter Note Called Charu and relayed message from Dr. Fernandes. While on the phone, daughter stated patient is in the hospital now and the physicians are planning an EGD and colonoscopy and daughter wants to proceed but would like Dr. Fernandes to comment on the plan. Fuentes Springer RN May 08, 2024 12:11 PM [facility] 05-08-2024 Telephone encounter Note Images from the original note were not included. Dorcas Fernandes MD You2 days ago EDEN Moncada I meant Xarelto not eliquis! Dorcas Fernandes MD You2 days ago EDEN Zheng, Please have them reach out to neurology regarding the aspirin 325. The eliquis should be continued. They were on ASA 325 post carotid stenting. I'm curious if that can be stopped but should be discussed with neurology team. Thanks, - Andreas [facility] 05-07-2024 Note HNO ID: [id number] Author: PAULETTE ARMENDARIZ LISW Service: Care Management Author Type: Intake Rn Type: Care Mgt Initial Assessment Filed: 05/07/2024 16:16 Note Text: CARE MANAGEMENT: ASSESSMENT AND DISCHARGE PLAN SERVICE DATE: May 07, 2024 SERVICE TIME: 1400 PCP: Samm Thompson MD Primary Contact: Extended Emergency Contact Information Primary Emergency Contact: Charu Cain Mobile Relation: Daughter Secondary Emergency Contact: [place] [address] [facility] Relation: Daughter Admission Status: Inpatient Insurance Provider: MEDICARE A AND B Discharge Planning requested by: Per Department Practice Potential Transition Plans Long Term Facility/Intermediate Care Facility;To Be Determined Advance Directives Current Advance Directive: None Commercial Electrician Attempted to Assist with AD Completion: Yes [...] Goal(s): General wellness, Ambulate a little better [place] of Choice Explained: [place] of Choice Given: Yes Level of Care Discussed: Long Term Facility Are you interested in bedside delivery of your medications? No Discharge Planning Participant(s): Patient Patient/Family Comments: Dtr Maria De Jesus in room, and other dtr's Zack [phone] on speaker phone Caregiver Assessment: Caregiver is [...] He has no intention of moving into longterm. Dtr's are trying to get him to consider moving to a trailer park and gettting rid of his cats. Pt is not interested in resources for hoarding at this time. Referrals sent in order to [facility]. 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 Does NOT want [facility] where his brother is staying. SW/NATALIA to follow. SIGNATURE: RINA Guerrero PATIENT NAME: José Miguel Antonio . DATE: May 07, 2024 TIME: 4:07 PM CONTACT #: [phone] [facility] 05-07-2024 Note HNO ID: [id number] Author: JAMIE HEREDIA MD Service: Hospital Medicine Author Type: Physician Type: Progress Notes Filed: 05/08/2024 05:31 Note Text: DEPARTMENT OF HOSPITAL MEDICINE PROGRESS NOTE SERVICE DATE: 05/07/2024 SERVICE TIME: 10:23 AM Hospital Medicine/Primary Attending: Jamie Heredia MD NIGHT AND WEEKEND COVERAGE: CAYUGA COVERAGE: Days: , please contact via [employer]eros[employer] Nights: [phone] - 3rd floor: please page CC Hospitalist night cover [phone] - 4W: please page CC Hospitalist night cover #[phone] - 5th floor: please page CC Hospitalist night cover #[phone] - SDU (17:00 - 19:00): Please page #[phone] - SDU (19:00 - 07:00): Please call [facility]Hospital at [phone] Subjective INTERVAL HPI: Patient was seen and [...] L CEA was done by Neuro-IR at [facility] Virtual follow up by Neurology on 03/18--> was told to keep ASA at 325 mg daily Telephone communication with neurology--> dc plavix and restarted xarelto in April 01 along with asa 325 mg Since March, noted steady drop in hgb as well as iron PCP in [place] started patient on IV iron infusions Was [...] and Airways Line Duration Peripheral 05/06/24 1706 [facility] Short Right Antecubital 20 Gauge <1 [...] artery disease involving coronary bypass graft of pechanga heart without angina pectoris Systolic heart failure (HCC) S/P CABG (coronary artery bypass graft) 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 kidney disease, unspecified CKD stage, unspecified whether oil heaterman insulin use (HCC) Stage 3b chronic kidney [...] MR (more content not included)... [facility] 05-06-2024 Note HNO ID: [id number] Author: EVETTE ENCISO RT(R) Service: ? Author Type: Technologist [...] PATIENT PRESENTS WITH AN IMPLANTABLE OR ATTACHED SHAPER HAND: No RADIOLOGY DEPARTMENT: General X-ray: Exam(s) Completed: Chest X-Ray PERIPHERAL IV DATA: Not applicable SIGNED BY: Evette Enciso, RT(R) May 06, 2024 5:01 PM [facility] 05-06-2024 Telephone encounter Note Patients daughter thinks he is on too many blood thinners, sob, doesn't go to cardiac rehab because he is too tired. Please call her at [phone] Charu. Thank you, Sandeep [facility] Work Phone: 04-30-2024 Note [facility] 04-30-2024 History of Present illness Narrative Summary: KCCQ-12 AMB TVT FOLLOWUP: Follow Up Type: Phone Call Call Attempt: Final Attempt Call Status: Patient Refused Patient answered call back and now states refusal. documented in this encounter [facility] 04-29-2024 Note [facility] 04-29-2024 History of Present illness Narrative Summary: KCCQ-12 AMB TVT FOLLOWUP: Follow Up Type: Phone Call Call Attempt: 1st Attempt Call Status: Left Message and Asked to be called back Patient returned call but asked for a call back tomorrow documented in this encounter [facility] 04-06-2024 Instructions Yung Andrade MD - 04/06/2024 3:28 PM EDT Advance Directives Every adult has the right to direct their own medical care. Having an advance directive on file helps to ensure that you receive the care you want if a medical condition or injury renders you unable to make decisions or communicate. Forms can be found on the [facility] Advance Directives site. You do not need a general forecaster to complete advance directive documents. [email or web address] [email or web address]/[email or web address]-directives Talking about end-of-life issues is difficult, but it truly is a gift to your loved ones. We suggest using The Conversation Project (theCartesianationproject.org) to help guide you through discussing and [...] JPEG format. You can also mail to: [facility] Health Information Management, [employer] Advance Directive Processing [address] [place], [place] [address] documented in this encounter [facility] 04-06-2024 Telephone encounter Note Call to daughter ABIEL Box, no answer, LVM with return number. Geneva Lam RN April 06, 2024 11:25 AM [facility] 04-06-2024 Miscellaneous Notes Call to daniel ABIEL Box, no answer, LVM with return number. Geneva Lam RN April 06, 2024 11:25 AM Name of Caller: Charu Wigginsmarcos Relationship to patient: patient's daughter Reason for Call: Patient Daughter is calling just looking for clarification and new mediation instruction. Please reach out when available. Callback number: [phone] Janice Shanelle documented in this encounter [facility] 04-03-2024 Telephone encounter Note Name of Caller: Charu Cain Relationship to patient: patient's daughter Reason for Call: Patient Daughter is calling just looking for clarification and new mediation instruction. Please reach out when available. Callback number: [phone] Janice Timmons [facility] 04-02-2024 Instructions Dorcas Fernandes MD - 04/02/2024 10:23 AM EDT -Follow-up blood work 04/03 documented in this encounter [facility] 04-01-2024 Telephone encounter Note Unable To Reach Patient Patient appears on the PRO Taussig Report for a PHQ-9 score of 11. Questionnaire was completed on 03/31. SW called and left a VM encouraging this Patient to kelsey back if additional support was desired. SW will remain available and will follow up as appropriate. MARIAM Ryder [facility] 04-01-2024 Miscellaneous Notes Unable To Reach Patient Patient appears on the PRO [place] Report for a PHQ-9 score of 11. Questionnaire was completed on 03/31. SW called and left a VM encouraging this Patient to kelsey back if additional support was desired. SW will remain available and will follow up as appropriate. MARIAM Ryder documented in this encounter [facility] 03-31-2024 Note [facility] 03-31-2024 History of Present illness Narrative Answers submitted by the patient [...] Muscle aches: No [facility] Department of Cardiovascular Medicine VIRTUAL VIDEO VISIT ESTABLISHED OUTPATIENT VISIT SERVICE DATE: 03/31/2024 Patient: José Miguel Antonio Jr. SERVICE TIME: 3:55 PM : 1940 This is a virtual video visit. It required patient-provider interaction for the medical decision making as documented below. José Miguel Antonio Jr. has consented to this video encounter. I have communicated my name and active licensure. The patient's identity and physical location were verified at the time of this visit. 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 (Patient not taking: Reported on 03/30/2024) VALVE INSERTER THYROID 15 mg tablet Take 15 mg [...] the management and care of this patient. Dorcas Fernandes MD March 31, 2024 3:55 PM documented in this encounter [facility] 03-31-2024 History of Present illness Narrative Radiation Oncology - Follow Up Note PATIENT NAME: José Miguel Antonio Jr. PATIENT DIAGNOSIS: Prostate adenocarcinoma, initial PSA 8.14, biopsy Dilliner score 3 + 4 = 7 (grade [...] directed. (Patient not taking: Reported on 03/30/2024) VALVE INSERTER THYROID 15 mg tablet Take 15 mg [...] Yung Andrade MD cc: Samm Thompson MD [address] [place] [id number] documented in this encounter [facility] 03-31-2024 Note [facility] 03-31-2024 Nurse Note AUA= 5 [facility] 03-31-2024 Nurse Note AUA= 5 documented in this encounter [facility] 03-30-2024 Telephone encounter Note March 30, 2024 Patient Contact Number: [phone] Patient last seen within the last year: Yes Date of last office visit: 03/30/2024 Reason For Call: PT requested Patient Enrollment Form be filled out for Xarelto approval. Form has been scanned and uploaded. Physician: Jethro Brady MD Patient was informed that non-urgent calls may be returned within the next three business days. Yes Sandy Sales [facility] 03-30-2024 Miscellaneous Notes March 30, 2024 Patient Contact Number: [phone] Patient last seen within the last year: Yes Date of last office visit: 03/30/2024 Reason For Call: PT requested Patient Enrollment Form be filled out for Xarelto approval. Form has been scanned and uploaded. Physician: Jethro Brady MD Patient was informed that non-urgent calls may be returned within the next three business days. Yes Sandy Sales documented in this encounter [facility] 03-30-2024 History of Present illness Narrative Heart and V[facility] Jose Martin Silva Department of Cardiovascular Medicine [...] disease) Heart failure, acute systolic ([facility]) Hypertension Hypothyroid Myocardial infarct, old Occlusion and stenosis of carotid artery without mention of cerebral infarction Prostate cancer ([facility]) 2020 PVD (peripheral vascular disease) ([facility]) 11/17/2012 Stroke (cerebrum) ([facility]) 09/03/2022 Systolic heart failure ([facility]) Thyroid disorder 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 kidney disease, unspecified CKD stage, unspecified whether oil heaterman insulin use ([facility]) 04/26/2023 Ventricular tachycardia ([facility]) 04/28/2012 Surgical History: PAST SURGICAL [...] cousin at age 50 of MD Social History: Social History Tobacco Use Smoking [...] (NITROQUICK) 0.4 mg SL tablet as directed. VALVE INSERTER THYROID 15 mg tablet Take 15 mg [...] the prior CC echocardiographic exam performed on 02/05/2024. Similar findings. * * * Final * * * Last MERRITT Result Conclusion No resulted procedures found. Last EKG Result Conclusion ECG COMPLETE Collected: 03/01/2024 11:29 PM (Final result) Impression: SINUS RHYTHM WITH OCCASIONAL ATRIAL-PACED COMPLEXES AND PREMATURE ATRIAL COMPLEXES MINIMAL VOLTAGE CRITERIA FOR LVH, MAY BE NORMAL VARIANT ABNORMAL ECG Confirmed by MD JIMÉNEZ TAMANNA ([id number]) on 03/05/2024 11:10:51 AM Prior records were [...] to twice daily. He follows with a oxygraph operator locally but would prefer to have one. I have placed a referral. Jethro Brady MD, [facility] attending radiologist, [facility] Staff, Section of Cardiovascular Imaging Department of Cardiovascular Medicine [facility] and [facility] ADDENDUM: Echo reviewed. There is new echodensity in the posterior LV suspicious for LV thrombus. Discussed findings with patient and daughter. He will be starting Xarelto tomorrow as per neurosx recommendations. He knows that he needs a repeat echo in a month or two. He prefers to do it locally and will share the results with us Jethro Brady MD, [facility] Staff, Section of Cardiovascular Imaging Department of Cardiovascular Medicine [facility] and Vascular [facility] documented in this encounter [facility] 03-30-2024 Note [facility] 03-18-2024 History of Present illness Narrative Images from the original note were not included. [facility]BR[facility]ULAR CENTER Virtual Visit Consultation is requested by: No referring provider defined for this encounter. PCP: Samm Thompson [address] [place] [address] CEREBROVASCULAR HISTORY José Miguel Antonio Jr. is [...] ICD in 2019, COPD, former smoker, who presented to the [facility] ED on 02/26/24 with acute flashing lights in the left eye followed by complete blindness for 2-3 minutes that spontaneously resolved. Imaging at [place] included CTH showing Probable right parietal low-attenuation within the deep white matter extending to the cortex. I favor a subacute or chronic infarct. This represents change from prior study. CTA H/N showed, severe hemodynamically significant stenosis of the left internal carotid artery origin similar prior examination with estimated stenosis of 99% . Patient subsequently transferred to [facility] under Stroke Neurology for further workup and management of suspected symptomatic L ICA with critical stenosis. Upon arrival to [facility], patient was HDS and NIH 0. He [...] visit. Either the patient or their legal kiosk sales representative has been informed of the risks [...] disease) Heart failure, acute systolic ([facility]) Hypertension Hypothyroid Myocardial infarct, old Occlusion and stenosis of carotid artery without mention of cerebral infarction Prostate cancer ([facility]) 2020 PVD (peripheral vascular disease) ([facility]) 11/17/2012 Stroke (cerebrum) ([facility]) 09/03/2022 Systolic heart failure ([facility]) Thyroid disorder 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 kidney disease, unspecified CKD stage, unspecified whether mcc insulin use ([facility]) 04/26/2023 Ventricular tachycardia ([facility]) 04/28/2012 PAST SURGICAL HISTORY Procedure [...] (NITROQUICK) 0.4 mg SL tablet as directed. VALVE INSERTER THYROID 15 mg tablet Take 15 mg [...] vibration. Coordination: Rapid alternating movements symmetric bilaterally. Ffttun-ho-nahl, yrmt-sw-iczr without dysmetria bilaterally. Reflexes: 2+/4 reflexes symmetric [...] patient/family/caregiver, and care coordination (not separately reported) LANA Skinner APRN.EDISCOVERY PROJECT MANAGER CC No referring provider defined for this encounter. Samm Thompson [address] [place] [address] documented in this encounter [facility] 03-18-2024 Note [facility] 03-06-2024 Note [facility] 03-06-2024 History of Present illness Narrative Cerebrovascular Center Stock Mixer Transitional Care Management Phone Call A transitional [...] Dept Phone 03/11/2024 11:20 AM CHARU KINCAID [facility] [phone] 03/18/2024 2:05 PM LUÍS SKINNER [phone] 03/24/2024 1:00 PM LAB FAVIOLA KATHRINE [facility] Kathrine [phone] 03/30/2024 1:30 PM EKGJ1-4 MAIN Manolo Collnis [facility] [phone] 03/30/2024 2:00 PM IMAGING CLINICIAN Manolo Collins [facility] [phone] 03/30/2024 2:30 PM JOSE ANTONIO, SERGREG Manolo Collins [facility] [phone] 03/30/2024 3:30 PM ECHO J1-5 CARD MAIN Ia Karina [facility] [phone] 03/31/2024 1:15 PM Yung ANDRADE [facility] [phone] 03/31/2024 1:30 PM LAB FAVIOLA ALSTON [facility] Kathrine [phone] Reviewed and patient plans on attending appointment. [...] of the call. Ema Lyn RN Nurse Stock Mixer, Cerebrovascular Center March 06, 2024 11:58 AM documented in this encounter [facility] 03-05-2024 Note [facility] 03-05-2024 Note [facility] 03-04-2024 Note [facility] 03-04-2024 Note [facility] 03-04-2024 Note [facility] 03-04-2024 Note [facility] 03-04-2024 Note [facility] 03-04-2024 Note [facility] 03-03-2024 Note [facility] 03-03-2024 Note HNO ID: [id number] Author: TREVOR MENDOSA, RN Service: Nursing Author Type: Registered Nurse Type: Nursing Progress Note Filed: 03/03/2024 06:45 Note Text: [id number]: CMU alert for pt having 11 beats of V.Tach. NSGY BEV Katz notified [facility] 03-02-2024 Note Date of Procedure 03/02/2024. Development Scientist Information Cook Night: GABI. Start time: 2:50 PM. Stop time: 2:57 PM. Patient is ok with testing with one more person Patient is not allergic to adhesive. Reliability Right Eye Good. Left Eye Good. Notes Inf defect OU does not follow midline ZEISS 03-02-2024 Note [facility] 03-02-2024 History of Present illness Narrative SDA; inpt consult Cerebrovascular acci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) PMH ocular migraines, ischemic stroke ' (no deficit), asymptomatic R carotid stenosis (s/p R CEA ), HTN, CAD/MD s/p CABG, HFrEF (LVEF 28% 02/19/24), severe [...] 2 minutes and self-resolved. He presented to [facility] ([place], [place]). CTH negative for acute findings, but CTA demonstrated high grade MELIA stenosis. He was initiated on heparin infusion and transferred to [facility] for further care. US carotid on admission demonstrates MELIA stenosis 70-99%. Patient also had + TCD emboli monitoring (5MEEs) in [facility]. - VISUAL FIELD 24-2 OU (BOTH EYES): [...] Susi Whitehead OD documented in this encounter [facility] 03-02-2024 Note [facility] 03-02-2024 Note [facility] 03-02-2024 Note [facility] 03-02-2024 Note [facility] 02-28-2024 Telephone encounter Note Called patients daughter. Unable to provide timing on a bed, but provided therapeutic communication. Charu has no further questions at this time. Consuelo Gambino RN [facility] 02-28-2024 Miscellaneous Notes Called patients daughter. Unable to provide timing on a bed, but provided therapeutic communication. Charu has no further questions at this time. Consuelo Gambino RN CV PHONE Name of caller : Charu Relationship to patient : Daughter If not self Will need patient permission to release results or disclose health information with called documented in . Patient identified by Name and Date of . ( José Miguel Antonio Jr., 1940). Yes Number to return call [phone] Reason for Call: Patient Question/Update: Patient's daughter would like to know the status of her dad preadmission details. Daughter states patient has been waiting since February 26. Please call her at the above number. Thank you calling [facility]. You will receive a return call within 48 hours ( or 2 business days if close to the weekend). If you feel that this is an urgent issue and needs immediate attention, it is recommended that you contact your primary care provider office or proceed to your nearest Urgent Care Center of Emergency Room ED for evaluation/treatment. documented in this encounter [facility] 02-28-2024 Telephone encounter Note CV PHONE Name of caller : Charu Relationship to patient : Daughter If not self Will need patient permission to release results or disclose health information with called documented in . Patient identified by Name and Date of . ( José Miguel Atnonio Jr., 1940). Yes Number to return call [phone] Reason for Call: Patient Question/Update: Patient's daughter would like to know the status of her dad preadmission details. Daughter states patient has been waiting since February 26. Please call her at the above number. Thank you calling [facility]. You will receive a return call within 48 hours ( or 2 business days if close to the weekend). If you feel that this is an urgent issue and needs immediate attention, it is recommended that you contact your primary care provider office or proceed to your nearest Urgent Care Center of Emergency Room ED for evaluation/treatment. [facility] Work Phone: 02-27-2024 Telephone encounter Note Patient's daughter phoned. She stated that her father called earlier in the evening with stroke -like symptoms- loss of vision in one eye that returned, squiggley lines . He was taken to the ED and is in the observation unit. She would like him to be transferred to [facility] - told her to ask for a transfer. Shannon Mcnair APRN.EDISCOVERY PROJECT MANAGER [facility] Work Phone: 02-27-2024 Miscellaneous Notes Patient's daughter phoned. She stated that her father called earlier in the evening with stroke -like symptoms- loss of vision in one eye that returned, squiggley lines . He was taken to the ED and is in the observation unit. She would like him to be transferred to [facility] - told her to ask for a transfer. Shannon Mcnair APRN.CNP documented in this encounter [facility] 02-27-2024 Note [facility] 02-27-2024 History of Present illness Narrative Vanesa Fellow Plan of Care Received a transfer request from [facility] in [facility] (not located in [facility] Spoke to ED physician Dr. Guido for [...] ICD in 2018, COPD, former smoker, who presents to the [facility] ED with acute flashing lights in [...] do not have timing on beds at main campus and he may be a CEA candidate. [...] hypoperfusion. Plan: - Level 1 transfer to [facility]. Asked the OSH to update us [...] can be finalized once patient arrives to [facility] Aravind Arriaga MD Vascular Neurology Fellow, PGY-5 Supervising stroke staff: Dr. Millard documented in this encounter [facility] 2024 Note HNO ID: [id number] Author: RAMONA MELVIN MD Service: Cardiovascular Medicine Author Type: Fellow Type: Progress Notes Filed: 03/05/2024 16:38 Note Text: Documentation Query Please clarify the Type Acuity of CHF: acute on chronic systolic CHF [facility] 2024 Note [facility] 2024 Note [facility] 2024 Note [facility] 2024 Note [facility] 2024 Note [facility] 2024 Note [facility] 02-18-2024 Note [facility] 02-18-2024 Note [facility] 02-18-2024 Note [facility] 02-18-2024 Note [facility] 02-17-2024 Note [facility] 02-17-2024 History of Present illness Narrative Images from the original note were not included. Head [facility] Neck [facility] Dentistry, Oral Surgery, & Maxillofacial Prosthetics CHIEF COMPLAINT: Dental clearance HISTORY OF PRESENT ILLNESS: José Miguel Antonio is a 83 year old male being seen for dental consultation at the request of Dr. Priscilla Castañeda prior to open-heart surgery. The patient's last dental visit was over ten years ago. He plans to establish care with a dentist following [facility]. Pain:He denies odontalgia today. PROBLEM LIST: ACTIVE PROBLEM LIST Atherosclerotic Heart Disease of [place] Coronary Artery With Other Forms of Angina Pectoris ([facility]) SUMMARY Hyperlipidemia Preop Testing Heart Failure, Acute Systolic ([facility]) Carotid Stenosis Atrial Fib/Flutter, Transient Occlusion and Stenosis of Carotid Artery Without Mention of Cerebral Infarction S/P Cabg (Coronary Artery Bypass Graft) Sweating Coronary Artery Disease Involving Coronary Bypass Graft of [place] Heart Without Angina Pectoris Systolic Heart Failure ([facility]) Pvd (Peripheral Vascular Disease) ([facility]) Syncope Stroke (Cerebrum) ([facility]) Acute On Chronic Combined Systolic and Diastolic Congestive Heart Failure ([facility]) Carotid Stenosis, Asymptomatic, Bilateral Type 2 Diabetes Mellitus With Diabetic Chronic Kidney Disease, Unspecified Ckd Stage, Unspecified Whether Retirement Insulin Use ([facility]) Malnutrition of Moderate Degree ([facility]) Stage 3b Chronic Kidney Disease ([facility]) Dyspnea, Unspecified Non-Rheumatic Mitral Regurgitation Severe Mitral [...] (NITROQUICK) 0.4 mg SL tablet as directed. VALVE INSERTER 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 aspirin, [...] Soft Tissues: Clear saliva extruded from bilateral Colt's and Sari's ducts. Tongue soft and non-tender [...] be done with local anesthesia.(Confirmed) Please call [phone] to schedule for tooth extractions once patient [...] was discussed with the patient. José Miguel Antonio Jr. expressed understanding and agreed to proceed. The opinions rendered will be communicated back to the referring provider via shared electronic medical record. Dior Nj DDS documented in this encounter [facility] 02-17-2024 Note [facility] 02-17-2024 Note [facility] 02-14-2024 Note [facility] 02-14-2024 History of Present illness Narrative Study name: EMPOWER Trial IRB# [id number] PI: Andrés Savage Pt exited from trial--plan for commercial treatment. Natural Remedy Consultant: Krystal Richey Pager #: [phone] documented in this encounter [facility] 02-14-2024 Note [facility] 02-14-2024 History of Present illness Narrative I spoke with José Miguel Antonio Jr. And his daughter Charu on the phone. Direct admission to the hospital 02/14 in prep for M-AZAEL cowart MitraClip Dental clearance within last 6 months: to be completed inpatient KCCQ Survey Completed: to be done inpatient Surgeon note documented: to be completed inpatient No fasting is needed on pre-op day. Priscilla Castañ[facility] APRN.CNP [facility] Patient to be admitted prior on 02/14 and will remain in the house for the procedure. Please schedule José Miguel Antonio Jr., [id number] for Mitral Valve Transcatheter Tgcj-de-Hkcf Repair (M-AZAEL) w/ Cowart MitraClip Procedure on: 02/18/[address] Structural lab schedule on : 02/18/24 at 10:30am CPT: 62007 Diag: I34.0 ANALYSIS REPORTING DEVELOPER: Dr Brady Performing Physician: Dr pereira OR: 83 1st Surgeon: NISHA MERRITT schedule- intra/op Patient also needs INSURANCE PRECERTIFICATION SURVIVAL RATE GREATER THAN 1 YEAR____yes___(LOOKING FOR A YES) EF ___20__ Thank-you. Request sent to scheduling. Priscilla Castañeda APRN.CNP documented in this encounter [facility] 02-13-2024 Note [facility] 02-13-2024 History of Present illness Narrative Multidisciplinary Cardiac Team Review TRANSCATHETER MITRAL and TRICUSPID THERAPIES (TMTT) The below documentation is based on a mitral / tricuspid valve team discussion amongst the multidisciplinary team Attendees: Dr. Roland, Dr Mueller, Dr Anguiano, Dr Marr, Gianluca DE LA CRUZ, Dr Bruce, Dr Holcomb, Dr Brady, Dr Pereira, Dr Ventura, Garry DE LA CRUZ, Dr [...] MDT members has been completed by: Priscilla Castañeda APRN.CNP documented in this encounter [facility] 02-12-2024 Telephone encounter Note Attempted to contact daughter Charu. Clinical has been discussed with Dr. Brady. Patient should be admitted to the hospital for optimization and reassess by ENT. Fuentes Arana APRN.CEMENT WORKER [facility] 02-12-2024 Miscellaneous Notes Attempted to contact daughter Charu. Clinical has been discussed with Dr. Brady. Patient should be admitted to the hospital for optimization and reassess by ENT. Fuentes Arana APRN.CNS I spoke with daughter on [...] recommendation she will have him come to [place]. Unfortunately, based upon his symptoms, worsening MR on ECHO and increasing BNP, he may require admission for optimization. In the meantime will also try to obtain a sooner ENT consult. Fuentes Arana APRN.CNS Patients daughter called with concerns regarding the patient and the study that he is a part of. She would like to speak with you regarding her concerns, Daughter Charu [phone]. Clover documented in this encounter [facility] 02-12-2024 Telephone encounter Note I spoke with [...] recommendation she will have him come to [place]. Unfortunately, based upon his symptoms, worsening MR on ECHO and increasing BNP, he may require admission for optimization. In the meantime will also try to obtain a sooner ENT consult. Fuentes Arana APRN.CNS [facility] 02-12-2024 Telephone encounter Note Patients daughter called with concerns regarding the patient and the study that he is a part of. She would like to speak with you regarding her concerns, Daniel Box [phone]. Clover [facility] Work Phone: 02-12-2024 Note [facility] 02-12-2024 History of Present illness Narrative Clinical information has been reviewed. [...] him in the next couple of days. Fuentes Arana APRN.CEMENT WORKER documented in this encounter [facility] 02-11-2024 Telephone encounter Note Study name: EMPOWER Trial IRB# [id number] PI: Andrés Savage Pt's gfr dropped--spoke to Dr. Fernandes. Plan for med changes with f/u labs this Saturday. Spoke with pt's daughter. Plan to pause trial enrollment as he doesn't fit with this gfr. Will reassess after labs. Also informed that clinical team is re-reviewing imaging for clips. Natural Remedy Consultant: Krystal Richey Pager #: [phone] [facility] 02-11-2024 Miscellaneous Notes Study name: EMPOWER Trial IRB# [id number] PI: Andrés Savage Pt's gfr dropped--spoke to Dr. Fernandes. Plan for med changes with f/u labs this Saturday. Spoke with pt's daughter. Plan to pause trial enrollment as he doesn't fit with this gfr. Will reassess after labs. Also informed that clinical team is re-reviewing imaging for clips. Natural Remedy Consultant: Krystal Richey Pager #: [phone] documented in this encounter [facility] 02-05-2024 Note [facility] 02-05-2024 History of Present illness Narrative Study name: EMPOWER Trial IRB# [...] were performed per protocol by a blinded fire alarm repairer: Berta Barry NYHA completed: Yes KCCQ-12 questionnaire [...] up requirements/schedule Materials dispensed: Coordinator Contact Card Natural Remedy Consultant: Berta Barry [phone] documented in this encounter [facility] 01-30-2024 Note [facility] 01-30-2024 History of Present illness Narrative Summary: Empower Study Called pt's daughter Charu to give update on Empower study, and to schedule screening visit. documented in this encounter [facility] 01-14-2024 Telephone encounter Note January 14, 2024 Name: José Miguel Antonio Jr. Patient Contact Number: [phone] - daughter's valentin - Charu Cain Date of last office visit: 01/10/2024 Reason For Call: Medication Issue/Question: Patient's daughter is asking if after reviewing labs are there any medication changes? Please call daughter's phone - Charu Cain Physician: Dorcas Fernandes MD Patient was informed that non-urgent calls may be returned within the next three business days. Yes Hillary Martinez [facility] 01-14-2024 Miscellaneous Notes January 14, 2024 Name: José Miguel Antonio Jr. Patient Contact Number: [phone] - daughter's cell - Charu Cain Date of last office visit: 01/10/2024 Reason For Call: Medication Issue/Question: Patient's daughter is asking if after reviewing labs are there any medication changes? Please call daughter's phone - Charu Cain Physician: Dorcas Fernandes MD Patient was informed that non-urgent calls may be returned within the next three business days. Yes Hillary Martinez documented in this encounter [facility] 01-10-2024 Evaluation note Diagnosis IRB 18-600 Empower Assessment of the CARILLON Mitral Contour System in Treating Functional Mitral Regurgitation Associated with Heart Failure PI: Hussein- Primary documented in this encounter [facility]04[facility]26[facility] History of Present illness Narrative* Krystal Richey - 01/10/2024 12:32 PM EDT IRB 18-600 Empower Assessment of the CARILLON Mitral Contour System in Treating Functional Mitral Regurgitation Associated with Heart Failure PI: Johnyaimeeparkerma Study explained/reviewed with patient and 3 daughters. [...] Brady info on card. Krystal Richey RN [phone] documented in this encounterFair[facility] Center04-26-2024 Instructions* Patient Instructions* Dorcas Fernandes MD - 01/10/2024 11:19 AM EDT -blood work today -screening for EMPOWER study -Will likely start low dose ACEi or ARB after I review your labs documented in this encounterFairfield Medical Center04-26-2024 History of Present illness Narrative* Dorcas Fernandes MD - 01/10/2024 10:15 AM EDT Images from the original note were not included. [facility] SECTION OF HEART FAILURE and CARDIAC TRANSPLANT MEDICINE OUTPATIENT VISIT DATE January 10, 2024 OUTPATIENT VISIT TYPE Consultation PRIMARY CARE PHYSICIAN: Samm Thompson [address] [place] [address] CHIEF COMPLAINT: HFrEF, ischemic CM, severe FMR NURSING INTAKE (Patient s concerns and/or recent hospitalizations/ER visits): José Miguel Antonio Jr. is a 83 year old male from [place], [place] referred by Dr. Brady for GDMT. [...] 2020 PVD (peripheral vascular disease) ([facility]) 11/17/2012 Stroke (cerebrum) ([facility]) 09/03/2022 Systolic heart failure (HCC) Thyroid disorder 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 kidney disease, unspecified CKD stage, unspecified whether oil heaterman insulin use (HCC) 04/26/2023 Ventricular tachycardia (HCC) [...] (NITROQUICK) 0.4 mg SL tablet as directed. VALVE INSERTER 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 aspirin, [...] diet, exercise, other non-medical management as above. Dorcas Fernandes MD [facility] Section Of Heart Failure and Cardiac Transplant Medicine Heart [facility] Desk [place] [phone] documented in this encounterFairfield Medical Center04-26-2024 [facility]04-[facility]-2024 Evaluation note* Diagnosis IRB 18-600 Empower Assessment of the CARILLON Mitral Contour System in Treating Functional Mitral Regurgitation Associated with Heart Failure PI: Hussein- Primary documented in this encounter [facility]04-18-2024 Miscellaneous Notes* Telephone Encounter - Velma Hall - 01/02/2024 2:54 PM EDTSummary: 18-600 Empower [...] 02, 2024 2:58 PM documented in this encounterFairfield Medical Center04-18-2024 [facility]04-18[facility]24 History of Present illness Narrative* Krystal Richey - 01/02/2024 2:27 PM EDT IRB 18-600 [facility] Assessment of the CARILLON Mitral Contour [...] if he is optimized. Krystal Richey RN [phone] documented in this encounterFairfield [facility] Center04-17-2024 [facility]04[facility] History of Present illness Narrative* Krystal [...] next week if she doesn't reach out. Natural Remedy Consultant: Krystal Richey Pager #: [phone] documented in this encounterFairfield [facility] Center04-15-2024 [facility]04-[facility]24 History of Present illness Narrative* Kaiden Krystal Diya - 12/30/2023 3:28 PM EDT IRB 18-600 [...] Follow up appointment added. Krystal Richey RN [id number] documented in this encounterFairfield [facility] Center04-11-2024 [facility]04-[facility]-2024 History of Present illness Narrative* Kristina eCja APRN.EDISCOVERY PROJECT MANAGER - 12/26/2023 4:38 PM EDT Multidisciplinary Cardiac Team Review TRANSCATHETER MITRAL and TRICUSPID THERAPIES (TMTT) The below documentation is based on a mitral / tricuspid valve team discussion amongst the multidisciplinary team Attendees: Dr. Pereira, Dr. Savage, Dr. Martinez, Dr. Chaudhry, Dr. Hutson, Dr. Brady, Dr. Ventura, , Dr. Anguiano, Dr. Mccord, Dr. Clayton, Dr. Harry, Dr. Lock, Dr. Nathan, Dr. Roland, Flaca Ceja, DOROTHY, Jase Underwood, RN, Yanick Saravia RN PATIENT NAME: Joés Miguel Antonio Jr. DATE: December 26, 2023 [...] members has been completed by: Kristina Ceja APRN.EDISCOVERY PROJECT MANAGER documented in this encounterFairfield Medical Center04-11-2024 History of Present illness Narrative* Jethro Brady MD - 12/26/2023 11:15 AM EDT Heart [facility] V[facility] Department of Cardiovascular Medicine [...] and diastolic congestive heart failure ([facility]) 09/03/2022 Dyslipidemia GERD (gastroesophageal reflux disease) Heart failure, acute systolic ([facility]) Hypertension Hypothyroid Myocardial infarct, old Occlusion and stenosis of carotid artery without mention of cerebral infarction Prostate cancer ([facility]) 2020 PVD (peripheral vascular disease) ([facility]) 11/17/2012 Stroke (cerebrum) ([facility]) 09/03/2022 Systolic heart failure ([facility]) Thyroid disorder 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 kidney disease, unspecified CKD stage, unspecified whether oil heaterman insulin use ([facility]) 04/26/2023 Ventricular tachycardia ([facility]) 04/28/2012 Surgical History: PAST SURGICAL [...] cousin at age 50 of [place] Social History: Social History Tobacco Use Smoking [...] (NITROQUICK) 0.4 mg SL tablet as directed. VALVE INSERTER 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 aspirin, [...] CEA (2012) He was recently admitted to [place] in Sep and November with SANTILLAN - [...] with another MERRITT to guide any procedure. Jethro Brady MD, [facility] attending radiologist, [facility] Staff, Section of Cardiovascular Imaging Department of Cardiovascular Medicine Heart [facility] documented in this encounterFairfield Medical Center04-11-2024 NoteA[facility]04-10-20[facility]04-[facility]24 Miscellaneous Notes* Telephone Encounter - Sandy Sales - 12/17/2023 12:08 PM EDT December 17, 2023 Patient Contact Number: [phone] Patient last seen within the last year: Yes Date of last office visit: 12/12/2023 Reason For Call: Daughter called to verify okay for Mr. Antonio to start cardiac rehabilitation. Physician: Virgil Carrillo MD Patient was informed that non-urgent calls may be returned within the next three business days. Yes Sandy Sales documented in this encounterFairfield Medical Center03-28-2024 Instructions* Patient Instructions* Carmelina Ramos APRN.CNP - 12/12/2023 2:38 PM EDT -I will call you after discussing echo and MERRITT results with Dr. Carrillo. I will let you know the next steps/recommendations at that time. Future Appointments Date Time Provider Department Center 01/10/2024 10:15 AM Dorcas Fernandes MD CARD CHF [facility] 02/18/2024 9:00 AM ECHO A17 CARD MAIN CFLAMN Mn A Bld[facility] 02/18/2024 11:30 AM EKGJ1-4 MAIN EKGF16 Mn J Bldg 02/18/2024 12:30 PM Virgil Carrillo MD CARN [facility] 03/24/2024 1:00 PM LAB [facility] 03/31/2024 1:15 PM Yung Andrade MD [facility] 03/31/2024 1:30 PM LAB HEMRAD [facility] documented in this encounterFairfield Medical Center03-28-2024 History of Present illness Narrative* Carmelina Ramos APRN.CNP - 12/12/2023 1:30 PM EDT Images from the original note were not included. [facility] Department of Cardiovascular Medicine SECTION OF CARDIOVASCULAR IMAGING OUTPATIENT VISIT DATE December 12, 2023 OUTPATIENT VISIT TYPE ESTABLISHED PRIMARY CARE PHYSICIAN: Samm Thompson [address] [place] [address] REFERRING PHYSICIAN: No referring provider defined for [...] He was admitted to the hospital in [place] on 11/18 for FVO, diuresed with IV lasix. He was recommended for MVr, however, he wanted to discuss with Dr. Carrillo. OSH MERRITT 11/18 reports Severe MR with systoic flow reversal in the right pulmonary veins consistent with severe mitral regurgitation. Since discharge, weight has been stable at 166 lbs (177 lbs last office visit) . He walked from [facility] building, denies shortness of breath. No edema [...] and diastolic congestive heart failure ([facility]) 09/03/2022 Dyslipidemia GERD (gastroesophageal reflux disease) Heart failure, acute systolic ([facility]) Hypertension Hypothyroid Myocardial infarct, old Occlusion and stenosis of carotid artery without mention of cerebral infarction Prostate cancer ([facility]) 2020 PVD (peripheral vascular disease) ([facility]) 11/17/2012 Stroke (cerebrum) ([facility]) 09/03/2022 Systolic heart failure ([facility]) Thyroid disorder 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 kidney disease, unspecified CKD stage, unspecified whether oil heaterman insulin use ([facility]) 04/26/2023 Ventricular tachycardia ([facility]) 04/28/2012 PAST SURGICAL HISTORY Procedure [...] (NITROQUICK) 0.4 mg SL tablet as directed. VALVE INSERTER 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 aspirin, [...] ABNORMAL ECG Confirmed by ANAM LUTZ MD ([id number]) on 11/21/2023 10:12:55 AM NT Pro BNP [...] He was admitted to the hospital in [place] on 11/18 for FVO, diuresed with IV [...] as scheduled in December -follow-up with local oxygraph operator as scheduled this month -pt has been scheduled to see Dr. Brady for evaluation for Mitraclip -advised to call Dr. Carrillo's office if increase in weight, SOB, swelling -recommendation and follow-up discussed with Mr. Antonio and his daughter, Charu Future Appointments Date Time Provider Department Center 12/26/2023 11:15 AM Jethro Brady MD CARIMN [facility] 01/10/2024 10:15 AM Dorcas Fernandes MD CARD CHF JENNIFER [facility] 02/18/2024 9:00 AM ECHO A17 CARD MAIN CFLAMN Mn A Bldg 02/18/2024 11:30 AM EKGJ1-4 MAIN EKGF16 Mn J Bldg 02/18/2024 12:30 PM Virgil Carrillo MD CARIMN Mn J dg 03/24/2024 1:00 PM [facility] 03/31/2024 1:15 PM Yung Andrade MD [facility] 03/31/2024 1:30 PM LAB HEMRAD [facility] I personally interviewed, confirmed and edited the above information if obtained by others. CONTACT INFORMATION: Carmelina Ramos APRN.CNP documented in this encounterFairfield Medical Center03-28-2024 NoteA[facility]03-18-2024 NoteB[facility]03-12-2024 Miscellaneous Notes* Telephone Encounter - Germaine Morales Mookie - 11/26/2023 3:30 PM EDT Patient's daughter called stating patient had been admitted to a hospital in [place] for fluid overload. Patient was given IV Lasix to remove the fluid. Local passenger vessel chef is planning a Mitral Valve Clip and want him to have the clip done sooner ratherthan later. Patient is wanting to discuss with Dr. Carrillo before he makes a decision. I advised the daughter, that I would schedule MrTitus Antonio to see one of our VALVE INSERTER's post discharge, butwould also let Dr. Carrillo know that he would like to speak with him regarding the MVR. Daughter understood, and stated that she would get [place] records and images sent to us. documented in this encounterFairfield Medical Center03-11-[address]. AVS sent to [facility]03-11-2024 Note Physical Therapy Cancellation note for Saturday11/25/23 pm Pt has been discharged from the hospital to return home , no therapy services needed . Attempted time : 15:05-15:06[facility]03-11-[facility]24 [facility]03-10-[facility]03-10-[facility]24 [facility]03-10-2024 NoteSocial worker advised patient needs [facility]. Referral sent. Awaiting accepting. [facility] accepted. AVS updated and sent to [facility]. No further OTM needs at this time.[facility]03-10-2024 [facility]03-09-2024 [facility] 11-23-2023 Note[facility]03-09-2024 Note[facility]03-09-2024 [facility] 11-22-2023 Note[facility]03-08-2024 [facility]03-08-2024 [facility] 11-22-2023 [facility]03-07-2024 [facility]03-07-2024 [facility] 11-21-2023 [facility]03-06-2024 [facility]03-06-20[facility] 11-20-2023 [facility]03-06-2024 [facility]03-06-20[facility] 11-20-2023 [facility]03-06-2024 [facility]03-06-2024 [facility] 11-19-2023 [facility]03-04-2024 [facility]02-14-20[facility]02-[facility]-2024 History of Present illness Narrative* Virgil Carrillo MD - 10/30/2023 9:00 AM EST Images from the original note were not included. [facility] Department of Cardiovascular Medicine SECTION OF CARDIOVASCULAR IMAGING OUTPATIENT VISIT DATE October 30, 2023 OUTPATIENT VISIT TYPE ESTABLISHED PRIMARY CARE PHYSICIAN: Samm Thompson [facility] [place] [address] REFERRING PHYSICIAN: Tiarra Lopez [address] [place] [address] CHIEF COMPLAINT: Follow up HISTORY OF PRESENT [...] and diastolic congestive heart failure ([facility]) 09/03/2022 Dyslipidemia GERD (gastroesophageal reflux disease) Heart failure, acute systolic ([facility]) Hypertension Hypothyroid Myocardial infarct, old Occlusion and stenosis of carotid artery without mention of cerebral infarction Prostate cancer ([facility]) 2020 PVD (peripheral vascular disease) ([facility]) 11/17/2012 Stroke (cerebrum) ([facility]) 09/03/2022 Systolic heart failure ([facility]) Thyroid disorder 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 kidney disease, unspecified CKD stage, unspecified whether mcc insulin use ([facility]) 04/26/2023 Ventricular tachycardia ([facility]) 04/28/2012 PAST SURGICAL HISTORY Procedure [...] (NITROQUICK) 0.4 mg SL tablet as directed. VALVE INSERTER 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 aspirin, [...] FOR LVH, MAY BE NORMAL VARIANT ( [place] product ) AGE UNDETERMINED ABNORMAL ECG IMPRESSION: [...] ?20 mL/minute/1.73 m2, N Engl J Med. 2020;383(15):2968-3968. This should be considered if his repeat GFR is stable. He is getting 1 locally on and will reach out to me with the results Follow-up here in 3 months with an echo to review the degree of MR and consider further management options. I am also recommending that he establish care with our heart failure team here at [facility] CONTACT INFORMATION: Virgil Carrillo MD, PhD, [facility] Staff, Section of Cardiovascular Imaging Department of Cardiovascular Medicine Heart [facility] documented in this encounterFairfield Medical Center12-12-2023 Miscellaneous Notes* Telephone Encounter - Carina Sue - 08/27/2023 11:21 AM EST Left a message with the patient regarding the cancellation of 10/22/2023 with . Informed the patient of the new scheduled appointment on 10/29/2023 with . documented in this encounterFairfield Medical Center12-07-2023 Miscellaneous Notes* Telephone Encounter - Brenden Pollard - 08/22/2023 12:48 PM EST Call from pharmacy requesting refill. Requested Prescriptions Pending Prescriptions Disp Refills lisinopril (ZESTRIL) 5 mg tablet 90 tablet 3 Sig: Take 1 tablet by mouth once daily. Patient last seen 06-12-23 - Seen Alison Pollard documented in this encounterFairfield Medical Center08-11-2023 History of Present illness Narrative* Zahra Pierre MD - 04/26/2023 7:01 AM EDT Images from the original note were not included. Heart [facility] Department of Cardiovascular Medicine SECTION OF CARDIOVASCULAR IMAGING OUTPATIENT VISIT DATE April 26, 2023 OUTPATIENT VISIT TYPE ESTABLISHED PRIMARY CARE PHYSICIAN: Samm Thompson [address] [place] [address] REFERRING PHYSICIAN: Samm Thompson [address] [facility] [address] CHIEF COMPLAINT: Follow up HISTORY OF PRESENT [...] of cerebral infarction Prostate cancer ([facility]) 2020 PVD (peripheral vascular disease) ([facility]) 11/17/2012 Stroke (cerebrum) ([facility]) 09/03/2022 Systolic heart failure ([facility]) Thyroid disorder 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 kidney disease, unspecified CKD stage, unspecified whether mcc insulin use ([facility]) 04/26/2023 Ventricular tachycardia ([facility]) 04/28/2012 PAST SURGICAL HISTORY Procedure [...] the prior CC echocardiographic exam performed on 04/15/2020. Mild decrease [...] ABNORMALITY ABNORMAL ECG Confirmed by MD VIET, [facility] ([id number]) on 06/26/2022 4:47:04 PM IMPRESSION AND PLAN: [...] on low- dose MARGARETTE inhibitor, beta-jasbir, and [id number], as well as low-dose torsemide. As previously noted, he has not tolerated sacubitril/valsartan or spironolactone. He was previously in phase 2 cardiac rehabilitation, but this was stopped when he had a minor stroke, and I think it would be good for him to reinitiate this. Follow-up in 6 months. CONTACT INFORMATION: Zahra Pierre MD 12:56 PM April 27, 2023 documented in this encounterFairfield Medical Center03-16-2023 Miscellaneous Notes* Telephone Encounter - Darlene Martinez - 11/29/2022 9:11 AM EDT Mr. Antonio decided not to move forward with surgery at this time and would like to cancel. Darlene Rajput Serology Technician documented in this encounterFairfield Medical Center03-16-2023 History of Present illness Narrative* John Jefferson MD - 11/29/2022 12:00 AM EDT NAME: JOSÉ MIGUEL ANTONIO JR. [facility] NO: [id number] DATE OF SERVICE: 11/29/2022 DATE OF : 1940 He let us know he has changed his mind about proceeding with his carotid surgery. We will wait to see what he says about moving ahead and when he wants to reschedule. John Jefferson M.D. SPL/089 Audio #: [id number] Date Dictated: 11/29/2022 14:25:32 Date Typed: 11/30/2022 09:05:53 Date Revised: documented in this encounterFairfield Medical Center02-15-2023 Miscellaneous Notes* Telephone Encounter - Lidia Mccloud - 10/31/2022 11:58 AM EST Called patient José Miguel to clarify surgery date and advise pre scheduled date requested, asked if I could look up his brothers surgery information, advised I could not my apologizes,to also check as he has EKG/Echo scheduled with Cardiac scheduled day after surgery ..Tiffany Clifton documented in this encounterFairfield Medical Center02-10-2023 History of Present illness Narrative* Zahra Pierre MD - 10/26/2022 11:38 AM EST Images from the original note were not included. [facility] Department of Cardiovascular Medicine SECTION OF CARDIOVASCULAR IMAGING OUTPATIENT VISIT DATE October 26, 2022 OUTPATIENT VISIT TYPE ESTABLISHED PRIMARY CARE PHYSICIAN: Samm Thompson MD [address] [place] [address] REFERRING PHYSICIAN: Zahra Pierre [address] [facility] [address] CHIEF COMPLAINT: Follow up HISTORY OF PRESENT [...] and diastolic congestive heart failure ([facility]) 09/03/2022 Dyslipidemia GERD (gastroesophageal reflux disease) Heart failure, acute systolic ([facility]) Hypertension Hypothyroid Myocardial infarct, old Occlusion and stenosis of carotid artery without mention of cerebral infarction Prostate cancer ([facility]) 2020 PVD (peripheral vascular disease) ([facility]) 11/17/2012 Stroke (cerebrum) ([facility]) 09/03/2022 Systolic heart failure ([facility]) Thyroid disorder Ventricular tachycardia 04/28/2012 [...] FOR LVH, MAY BE NORMAL VARIANT ( [place] product ) NONSPECIFIC T WAVE ABNORMALITY ABNORMAL ECG Confirmed by MD VIET, HE ([id number]) on 06/26/2022 4:47:04 PM IMPRESSION AND PLAN: [...] AM November 02, 2022 documented in this encounterFairfield Medical Center02-09-2023 Instructions* Patient Instructions* Zahra Pierre MD - 10/25/2022 4:11 PM EST OK for surgery. Do not take your lisinopril the day before and the day of surgery. Continue your other medications. Check blood work today. Return in 6 months with an echocardiogram. documented in this encounterFairfield Medical Center02-09-2023 History of Present illness Narrative* Josselin Claros RN - 10/25/2022 1:45 PM EST RADIOLOGY SERVICE PROGRESS NOTE SERVICE DATE: 10/25/2022 SERVICE TIME: 1:46 PM PATIENT IDENTITY VERIFICATION COMPLETED USING TWO (2) STANDARD IDENTIFIERS: Name and Date of confirmed by patient verbally and Name and Date of confirmed by identification band PATIENT GENDER DATA: male ALLERGIES: Reviewed and unchanged MEDICATIONS REVIEWED BY: Cat Breeder and Josselin Claros RN PROCEDURE TYPE: NM PET Myocardial Imagin.4 mg of Regadenoson was administered at 1359 over 10 Seconds. Reversal agent used: None. and NM PET Myocardial Action Taken: POCT Blood Glucose 101 mg/dL at 1339 (QC = OK).9.2 mCi FDG-18 IV at 1416. POCT Blood Glucose 98 mg/dL at 1415 (QC = OK). Expiration date: 16JUN2025 Lot#: [id number] IV SITE: Ambulatory: A peripheral IV was started in the Right forearm with a Angio cath: 20 gauge. and A Saline lock was inserted per protocol POST EXAM PIV STATUS: Discontinued PATIENT DISCHARGED TO: Ambulatory patient, left [place] department area. A Diagnostic radioactive procedure has taken place, with no further precautions necessary other than routine body substance precautions. More information regarding radiation safety can be found usingthis link: [email or web address] SIGNATURE: Josselin Claros RN PATIENT NAME: José Miguel Antonio Jr. DATE: October 25, 2022 TIME: 1:46 PM PAGER/CONTACT #: * Luigi Desai, [employer] - 10/25/2022 1:45 PM EST RADIOLOGY SERVICE [...] 1416 PATIENT DISCHARGED TO: Ambulatory patient, left [place] department area. A Diagnostic radioactive procedure has taken place, with no further precautions necessary other than routine body substance precautions. More information regarding radiation safety can be found usingthis link: [email or web address] SIGNATURE: Madalyn Castro PATIENT NAME: José Miguel Antonio Jr. DATE: October 25, 2022 TIME: 1:32 PM PAGER/CONTACT #: documented in this encounterFair[facility]01-17-2023 Nurse Note* Kathie Pavon RN - 10/02/2022 1:14 PM EST AUA 1.5 Kathie Pavon RN documented in this encounterFairfield Medical Center01-17-2023 History of Present illness Narrative* Yung Andrade MD - 10/02/2022 1:09 PM EST Radiation Oncology - Follow Up Note PATIENT NAME: José Miguel Antonio Jr. PATIENT DIAGNOSIS: Trying to get him a note from overview couple days rather do the PET scan for less a significantly Met second prostate adenocarcinoma, initial PSA 8, biopsy Dilliner score 3 + 4 = 7 (grade group 2), clinical stage T1c, N0, M0, stage IIB [T1-T2, N0, M0, PSA <20, GG 2] (AJCC 8th ed.), s/p TRUS Random biopsy, Patient elected observation and was found to have progression, PSA 08/2021 36.2. and repeat biopsy showing Dilliner 7 (3+4) adenocarcinoma. 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 If all recommended orders are present route to P PET AUTOMOTIVE PAINTER MC * Telephone Encounter - Darlene Moore - 09/07/2022 12:36 PM EST This form is used for MAIN CAMPUS APPOINTMENTS ONLY. Is this request for a [facility] [place] PET scan appointment? Yes: Warehouse Man: Darlene LUNA Requesting Person (Zahra Pierre): [phone] Area Code + Phone/Pager: Who do we [...] day/next day medically urgent scans please call [phone] to expedite LVEF: LV Ejection Fraction (%) Date Value 06/06/2022 20 LVEF Free text: Yes, see above. Additional comments: N/A Send requests to P CARDIAC PET MD MC documented in this encounterFairfield Medical Center12-19-2022 History of Present illness Narrative* John Jefferson MD - 09/03/2022 11:15 AM EST Images from the original note were not included. DATE: 07/01/2012 AGE: 72 SURGEON 1: John Jefferson M.D. OPERATION: Right carotid endarterectomy with bovine patch angioplasty. [facility] [place] DEPARTMENT OF VASCULAR SURGERY OUTPATIENT VISIT DATE September 03, 2022 OUTPATIENT VISIT TYPE CONSULTATION SERVICE DATE: 09/03/2022 SERVICE TIME: 11:53 AM PRIMARY CARE PHYSICIAN: Samm Thompson MD, MD REFERRING PROVIDER: Samm Thompson MD [facility] [address] Consult requested for an opinion regarding the [...] Of note, he was recently hospitalized in [place] on April for not feeling well. He has been grieving since his has passed in December. 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 without mention of cerebral infarction Prostate cancer ([facility]) 2020 PVD (peripheral vascular disease) ([facility]) 11/17/2012 Thyroid disorder Ventricular tachycardia [...] reviewed for today's visit: HUSSEIN Jefferson MD ([id number]) paged with results. Compared to prior study [...] flow noted. Abnormal signal suggests pre-steal. IMPRESSION: [facility] STAFF PHYSICIAN NOTE OF PERSONAL [...] 2022 TIME: 2:20 PM documented in this encounterFairfield Medical Center11-16-2022 Miscellaneous Notes* Telephone Encounter - Ayana Jauregui - 08/01/2022 4:10 PM EST Mr Antonio's daughter called and she would like to schedule an appointment with pt advised to do so due to Carotid stenosis seen Dr jefferson in 2011 regarding right side now its the left side having issues Contact Name (If not the pt): daniel Box Home and cell number: [phone] Diagnosis: Carotid stenosis Kind Regards Ayana Shania documented in this encounterFairfield Medical Center11-14-2022 Miscellaneous Notes* Telephone Encounter - Mary Gross - 07/30/2022 3:11 PM EST Reason for call: Mr Antonio called,and he would like to schedule an appointment with Contact Name (If not the pt): Charu daughter Home and cell number: [phone] Diagnosis: Mitral valve insufficiency, unspecified etiology Kind Regards Mary documented in this encounterFairfield Medical Center11-09-2022 Miscellaneous Notes* Telephone Encounter - Luís Crandall - 07/25/2022 3:04 PM EST Images have been pushed through into [employer]. Daughter would like you to call her to go over things as this was all completed after he saw you judy. She can be reached at [phone] Her name is Charu documented in this encounterFairfield Medical Center09-21-2022 History of Present illness Narrative* Zahra Pierre MD - 06/06/2022 3:28 PM EDT Heart [facility] V[facility] Jose Martin Silva Department of Cardiovascular Medicine SECTION OF CARDIOVASCULAR IMAGING OUTPATIENT VISIT DATE June 06, 2022 OUTPATIENT VISIT TYPE ESTABLISHED PRIMARY CARE PHYSICIAN: Samm Thompson MD [id number] [id number] CHIEF COMPLAINT: Follow up HISTORY OF PRESENT [...] of cerebral infarction Prostate cancer ([facility]) 2020 PVD (peripheral vascular disease) ([facility]) 11/17/2012 Thyroid disorder Ventricular tachycardia ([facility]) 04/28/2012 PAST SURGICAL HISTORY Procedure [...] any questions regarding this interpretation, please call [phone]. If you are unable to reach us at the number above, please feel free to contact [facility] at [phone]. IMPRESSION: Mr. Antonio is a 82 year [...] PM June 06, 2022 documented in this encounterFairfield Medical Center08-11-2022 History of Present illness Narrative* G Denilson Andrade MD - 04/26/2022 8:02 AM EDT AMBULATORY TELEPHONE VISIT José Miguel Antonio Jr. has consented to this telephone encounter. [...] PSA 08/2021 36.2. and repeat biopsy showing Dilliner 7 (3+4) adenocarcinoma. RADIATION SUMMARY: DATES OF [...] minutes Yung Andrade MD documented in this encounterFairfield Medical Center04-20-2022 History of Present illness Narrative* Yung Andrade MD - 01/03/2022 12:00 AM EDT [facility] Radiation Oncology Department RADIATION ONCOLOGY - COMPLETION NOTE PATIENT: JOSÉ MIGUEL ANTONIO: 1940 DATES OF TREATMENT: 10/23/2021 to 12/18/2021 DIAGNOSIS: Prostate adenocarcinoma, initial PSA 8, biopsy Dilliner score 3 + 4 = 7 (grade group 2), clinical stage T1c, N0, M0, stage IIB [T1-T2, N0, M0, PSA <20, GG 2] (AJCC 8th ed.), s/p TRUS Random biopsy, Patient elected observation and was found to have progression, PSA 08/2021 36.2. and repeat biopsy showing Dilliner 7 (3+4) adenocarcinoma. AREA TREATED: Pelvis Prostate [...] PSA. Staff Physician Denilson Andrade M.D. / WSSiddhartha :25 PM documented in this encounterFairfield Medical Center04-04-2022 History of Present illness Narrative* Yung Andrade MD - 12/18/2021 12:00 AM EDT [facility] Radiation Oncology Department RADIATION ONCOLOGY - COMPLETION NOTE PATIENT: JOSÉ MIGUEL ANTONIO: 1940 DATES OF TREATMENT: 10/23/2021 to 12/19/2019 DIAGNOSIS: Prostate adenocarcinoma, initial PSA 8, biopsy Dilliner score 3 + 4 = 7 (grade group 2), clinical stage T1c, N0, M0, stage IIB [T1-T2, N0, M0, PSA <20, GG 2] (AJCC 8th ed.), s/p TRUS Random biopsy, Patient elected observation and was found to have progression, PSA 08/2021 36.2. and repeat biopsy showing Dilliner 7 (3+4) adenocarcinoma. AREA TREATED: Pelvis Prostate [...] / WST 21:22 PM documented in this encounterFairfield Medical Center03-28-2022 History of Present illness Narrative* Yung Andrade [...] discussed. Yung Andrade MD documented in this encounterFairfield Medical Center12-29-2021 History of Present illness Narrative* Devika Fishman [...] 13, 2021 2:54 PM documented in this encounterFairfield Medical Center12-29-2021 Nurse Note* Allyn Tong RN - 09/13/2021 [...] DATE: September 13, 2021 TIME: 2:57 PM [facility]12[facility] Nurse Note* Allyn Tong RN - 09/13/2021 [...] 2021 TIME: 2:57 PM documented in this encounterFairfield Medical Center01-24-2018 History of Past illness Narrative* Problem Noted [...] 56, Troponin T .37 on admission to [facility] Wide-complex tachycardia 04/28/2012 Overview: Presented to OSH 04/28/12 in setting acute MD with wide complex tachycardia SVT versus VT. Given adenosine x2 without effect, diltiazem bolus and infusion with no effect. Spontaneous conversion to NSR. Had short run of wide complex tachycardia upon arrival to [facility] from CICU. Pre-op evaluation 04/28/2012 05/01/2012 Overview: Preoperative evaluation for CABG. Not ReDo -Carotids: Ordered -Vein Mapping: Ordered -Bedside PFTs: Ordered -Formal TTE: Ordered -CXR: Completed documented as of this encounter (statuses as of 10/30/2023) [facility]01-[facility] History of Past illness Narrative* Problem Noted [...] 56, Troponin T .37 on admission to [facility] Wide-complex tachycardia 04/28/2012 Overview: Presented to OSH 04/28/12 in setting acute MD with wide complex tachycardia SVT versus VT. Given adenosine x2 without effect, diltiazem bolus and infusion with no effect. Spontaneous conversion to NSR. Had short run of wide complex tachycardia upon arrival to [facility] from CICU. Pre-op evaluation 04/28/2012 05/01/2012 Overview: Preoperative evaluation for CABG. Not ReDo -Carotids: Ordered -Vein Mapping: Ordered -Bedside PFTs: Ordered -Formal TTE: Ordered -CXR: Completed documented as of this encounter (statuses as of 11/27/2023) [facility] of Past illness Narrative* Problem Noted [...] 56, Troponin T .37 on admission to [facility] Wide-complex tachycardia 04/28/2012 Overview: Presented to OSH 04/28/12 in setting acute MD with wide complex tachycardia SVT versus VT. Given adenosine x2 without effect, diltiazem bolus and infusion with no effect. Spontaneous conversion to NSR. Had short run of wide complex tachycardia upon arrival to [facility] from CICU. Pre-op evaluation 04/28/2012 05/01/2012 Overview: Preoperative evaluation for CABG. Not ReDo -Carotids: Ordered -Vein Mapping: Ordered -Bedside PFTs: Ordered -Formal TTE: Ordered -CXR: Completed documented as of this encounter (statuses as of 11/27/2023) [facility] of Past illness Narrative* Problem Noted [...] 56, Troponin T .37 on admission to [facility] Wide-complex tachycardia 04/28/2012 Overview: Presented to OSH 04/28/12 in setting acute MD with wide complex tachycardia SVT versus VT. Given adenosine x2 without effect, diltiazem bolus and infusion with no effect. Spontaneous conversion to NSR. Had short run of wide complex tachycardia upon arrival to [facility] from C[facility]. Pre-op evaluation 04/28/2012 05/01/2012 Overview: Preoperative evaluation for CABG. Not ReDo -Carotids: Ordered -Vein Mapping: Ordered -Bedside PFTs: Ordered -Formal TTE: Ordered -CXR: Completed documented as of this encounter (statuses as of 12/04/2023) [facility] of Past illness Narrative* Problem Noted [...] 56, Troponin T .37 on admission to [facility] Wide-complex tachycardia 04/28/2012 Overview: Presented to OSH 04/28/12 in setting acute MD with wide complex tachycardia SVT versus VT. Given adenosine x2 without effect, diltiazem bolus and infusion with no effect. Spontaneous conversion to NSR. Had short run of wide complex tachycardia upon arrival to [facility] from [facility]. Pre-op evaluation 04/28/2012 05/01/2012 Overview: Preoperative evaluation for CABG. Not ReDo -Carotids: Ordered -Vein Mapping: Ordered -Bedside PFTs: Ordered -Formal TTE: Ordered -CXR: Completed documented as of this encounter (statuses as of 12/20/2023) [facility] of Past illness Narrative* Problem Noted [...] 56, Troponin T .37 on admission to [facility] Wide-complex tachycardia 04/28/2012 Overview: Presented to OSH 04/28/12 in setting acute MD with wide complex tachycardia SVT versus VT. Given adenosine x2 without effect, diltiazem bolus and infusion with no effect. Spontaneous conversion to NSR. Had short run of wide complex tachycardia upon arrival to [facility] from [facility]. Pre-op evaluation 04/28/2012 05/01/2012 Overview: Preoperative evaluation for CABG. Not ReDo -Carotids: Ordered -Vein Mapping: Ordered -Bedside PFTs: Ordered -Formal TTE: Ordered -CXR: Completed documented as of this encounter (statuses as of 12/23/2023) [facility] of Past illness Narrative* Problem Noted [...] 56, Troponin T .37 on admission to [facility] Wide-complex tachycardia 04/28/2012 Overview: Presented to OSH 04/28/12 in setting acute MD with wide complex tachycardia SVT versus VT. Given adenosine x2 without effect, diltiazem bolus and infusion with no effect. Spontaneous conversion to NSR. Had short run of wide complex tachycardia [facility] Pre-op evaluation 04/28/2012 05/01/2012 Overview: Preoperative evaluation for CABG. Not ReDo -Carotids: Ordered -Vein Mapping: Ordered -Bedside PFTs: Ordered -Formal TTE: Ordered -CXR: Completed documented as of this encounter (statuses as of 12/24/2023) [facility] of Past illness Narrative* Problem Noted [...] 56, Troponin T .37 on admission to [facility] Wide-complex tachycardia 04/28/2012 Overview: Presented to OSH 04/28/12 in setting acute MD with wide complex tachycardia SVT versus VT. Given adenosine x2 without effect, diltiazem bolus and infusion with no effect. Spontaneous conversion to NSR. Had short run of wide complex tachycardia [facility] Pre-op evaluation 04/28/2012 05/01/2012 Overview: Preoperative evaluation for CABG. Not ReDo -Carotids: Ordered -Vein Mapping: Ordered -Bedside PFTs: Ordered -Formal TTE: Ordered -CXR: Completed documented as of this encounter (statuses as of 12/27/2023) [facility] illness Narrative* Problem Noted [...] 56, Troponin T .37 on admission to [facility] Wide-complex tachycardia 04/28/2012 Overview: Presented to OSH 04/28/12 in setting acute MD with wide complex tachycardia SVT versus VT. Given adenosine x2 without effect, diltiazem bolus and infusion with no effect. Spontaneous conversion to NSR. Had short run of wide complex tachycardia upon arrival to [facility] from [facility]. Pre-op evaluation 04/28/2012 05/01/2012 Overview: Preoperative evaluation for CABG. Not ReDo -Carotids: Ordered -Vein Mapping: Ordered -Bedside PFTs: Ordered -Formal TTE: Ordered -CXR: Completed documented as of this encounter (statuses as of 12/27/2023) [facility] illness Narrative* Problem Noted [...] 56, Troponin T .37 on admission to [facility] Wide-complex tachycardia 04/28/2012 Overview: Presented to OSH 04/28/12 in setting acute MD with wide complex tachycardia SVT versus VT. Given adenosine x2 without effect, diltiazem bolus and infusion with no effect. Spontaneous conversion to NSR. Had short run of wide complex tachycardia upon arrival to [facility] from [facility]. Pre-op evaluation 04/28/2012 05/01/2012 Overview: Preoperative evaluation for CABG. Not ReDo -Carotids: Ordered -Vein Mapping: Ordered -Bedside PFTs: Ordered -Formal TTE: Ordered -CXR: Completed documented as of this encounter (statuses as of 12/31/2023) [facility] illness Narrative* Problem Noted [...] 56, Troponin T .37 on admission to [facility] Wide-complex tachycardia 04/28/2012 Overview: Presented to OSH 04/28/12 in setting acute MD with wide complex tachycardia SVT versus VT. Given adenosine x2 without effect, diltiazem bolus and infusion with no effect. Spontaneous conversion to NSR. Had short run of wide complex tachycardia upon arrival to [facility] from [facility]. Pre-op evaluation 04/28/2012 05/01/2012 Overview: Preoperative evaluation for CABG. Not ReDo -Carotids: Ordered -Vein Mapping: Ordered -Bedside PFTs: Ordered -Formal TTE: Ordered -CXR: Completed documented as of this encounter (statuses as of 01/02/2024) [facility] Narrative* Problem Noted [...] 56, Troponin T .37 on admission to [facility] Wide-complex tachycardia 04/28/2012 Overview: Presented to OSH 04/28/12 in setting acute MD with wide complex tachycardia SVT versus VT. Given adenosine x2 without effect, diltiazem bolus and infusion with no effect. Spontaneous conversion to NSR. Had short run of wide complex tachycardia upon arrival to [facility] from [facility]. Pre-op evaluation 04/28/2012 05/01/2012 Overview: Preoperative evaluation for CABG. Not ReDo -Carotids: Ordered -Vein Mapping: Ordered -Bedside PFTs: Ordered -Formal TTE: Ordered -CXR: Completed documented as of this encounter (statuses as of 01/03/2024) [facility] Narrative* [...] 56, Troponin T .37 on admission to [facility] Wide-complex tachycardia 04/28/2012 012 Overview: Presented to OSH 04/28/12 in setting acute MD with wide complex tachycardia SVT versus VT. Given adenosine x2 without effect, diltiazem bolus and infusion with no effect. Spontaneous conversion to NSR. Had short run of wide complex tachycardia [facility] Pre-op evaluation 04/28/2012 05/01/2012 Overview: Preoperative evaluation for CABG. Not ReDo -Carotids: Ordered -Vein Mapping: Ordered -Bedside PFTs: Ordered -Formal TTE: Ordered -CXR: Completed documented as of this encounter (statuses as of 12/18/2021) [facility] Narrative* [...] 56, Troponin T .37 on admission to [facility] Wide-complex tachycardia 04/28/2012 012 Overview: Presented to OSH 04/28/12 in setting acute MD with wide complex tachycardia SVT versus VT. Given adenosine x2 without effect, diltiazem bolus and infusion with no effect. Spontaneous conversion to NSR. Had short run of wide complex tachycardia upon [facility] Pre-op evaluation 04/28/2012 05/01/2012 Overview: Preoperative evaluation for CABG. Not ReDo -Carotids: Ordered -Vein Mapping: Ordered -Bedside PFTs: Ordered -Formal TTE: Ordered -CXR: Completed documented as of this encounter (statuses as of 12/21/2021) [facility] illness Narrative* [...] 56, Troponin T .37 on admission to [facility] Wide-complex tachycardia 04/28/2012 012 Overview: Presented to OSH 04/28/12 in setting acute MD with wide complex tachycardia SVT versus VT. Given adenosine x2 without effect, diltiazem bolus and infusion with no effect. Spontaneous conversion to NSR. Had short run of wide complex tachycardia upon arrival to [facility] from [facility]. Pre-op evaluation 04/28/2012 05/01/2012 Overview: Preoperative evaluation for CABG. Not ReDo -Carotids: Ordered -Vein Mapping: Ordered -Bedside PFTs: Ordered -Formal TTE: Ordered -CXR: Completed documented as of this encounter (statuses as of 01/15/2022) [facility] illness Narrative* [...] 56, Troponin T .37 on admission to [facility] Wide-complex tachycardia 04/28/2012 012 Overview: Presented to OSH 04/28/12 in setting acute MD with wide complex tachycardia SVT versus VT. Given adenosine x2 without effect, diltiazem bolus and infusion with no effect. Spontaneous conversion to NSR. Had short run of wide complex tachycardia upon arrival to [facility] from [facility]. Pre-op evaluation 04/28/2012 05/01/2012 Overview: Preoperative evaluation for CABG. Not ReDo -Carotids: Ordered -Vein Mapping: Ordered -Bedside PFTs: Ordered -Formal TTE: Ordered -CXR: Completed documented as of this encounter (statuses as of 01/18/2022) [facility] Narrative* [...] 56, Troponin T .37 on admission to [facility] Wide-complex tachycardia 04/28/2012 012 Overview: Presented to OSH 04/28/12 in setting acute MD with wide complex tachycardia SVT versus VT. Given adenosine x2 without effect, diltiazem bolus and infusion with no effect. Spontaneous conversion to NSR. Had short run of wide complex tachycardia upon arrival to [facility] from [facility]. Pre-op evaluation 04/28/2012 05/01/2012 Overview: Preoperative evaluation for CABG. Not ReDo -Carotids: Ordered -Vein Mapping: Ordered -Bedside PFTs: Ordered -Formal TTE: Ordered -CXR: Completed documented as of this encounter (statuses as of 02/06/2022) [facility] illness Narrative* [...] 56, Troponin T .37 on admission to [facility] Wide-complex tachycardia 04/28/2012 012 Overview: Presented to OSH 04/28/12 in setting acute MD with wide complex tachycardia SVT versus VT. Given adenosine x2 without effect, diltiazem bolus and infusion with no effect. Spontaneous conversion to NSR. Had short run of wide complex tachycardia [facility] Pre-op evaluation 04/28/2012 05/01/2012 Overview: Preoperative evaluation for CABG. Not ReDo -Carotids: Ordered -Vein Mapping: Ordered -Bedside PFTs: Ordered -Formal TTE: Ordered -CXR: Completed documented as of this encounter (statuses as of 04/26/2022) [facility] illness Narrative* [...] 56, Troponin T .37 on admission to [facility] Wide-complex tachycardia 04/28/2012 012 Overview: Presented to OSH 04/28/12 in setting acute MD with wide complex tachycardia SVT versus VT. Given adenosine x2 without effect, diltiazem bolus and infusion with no effect. Spontaneous conversion to NSR. Had short run of wide complex tachycardia upon arrival to [facility] from [facility]. Pre-op evaluation 04/28/2012 05/01/2012 Overview: Preoperative evaluation for CABG. Not ReDo -Carotids: Ordered -Vein Mapping: Ordered -Bedside PFTs: Ordered -Formal TTE: Ordered -CXR: Completed documented as of this encounter (statuses as of 05/08/2022) [facility] illness Narrative* [...] 56, Troponin T .37 on admission to [facility] Wide-complex tachycardia 04/28/2012 012 Overview: Presented to OSH 04/28/12 in setting acute MD with wide complex tachycardia SVT versus VT. Given adenosine x2 without effect, diltiazem bolus and infusion with no effect. Spontaneous conversion to NSR. Had short run of wide complex tachycardia upon arrival to [facility] from [facility]. Pre-op evaluation 04/28/2012 05/01/2012 Overview: Preoperative evaluation for CABG. Not ReDo -Carotids: Ordered -Vein Mapping: Ordered -Bedside PFTs: Ordered -Formal TTE: Ordered -CXR: Completed documented as of this encounter (statuses as of 06/06/2022) [facility]08-16-2012 History of Past illness Narrative* [...] 56, Troponin T .37 on admission to [facility] Wide-complex tachycardia 04/28/2012 012 Overview: Presented to OSH 04/28/12 in setting acute MD with wide complex tachycardia SVT versus VT. Given adenosine x2 without effect, diltiazem bolus and infusion with no effect. Spontaneous conversion to NSR. Had short run of wide complex tachycardia upon arrival to [facility] from CICU. Pre-op evaluation 04/28/2012 05/01/2012 Overview: Preoperative evaluation for CABG. Not ReDo -Carotids: Ordered -Vein Mapping: Ordered -Bedside PFTs: Ordered -Formal TTE: Ordered -CXR: Completed documented as of this encounter (statuses as of 06/06/2022) [facility]08-[facility]-2012 History of Past illness Narrative* [...] 56, Troponin T .37 on admission to [facility] Wide-complex tachycardia 04/28/2012 012 Overview: Presented to OSH 04/28/12 in setting acute MD with wide complex tachycardia SVT versus VT. Given adenosine x2 without effect, diltiazem bolus and infusion with no effect. Spontaneous conversion to NSR. Had short run of wide complex tachycardia upon arrival to [facility] from CICU. Pre-op evaluation 04/28/2012 05/01/2012 Overview: Preoperative evaluation for CABG. Not ReDo -Carotids: Ordered -Vein Mapping: Ordered -Bedside PFTs: Ordered -Formal TTE: Ordered -CXR: Completed documented as of this encounter (statuses as of 07/31/2022) [facility]08-[facility]-2012 History of Past illness Narrative* [...] 56, Troponin T .37 on admission to [facility] Wide-complex tachycardia 04/28/2012 012 Overview: Presented to OSH 04/28/12 in setting acute MD with wide complex tachycardia SVT versus VT. Given adenosine x2 without effect, diltiazem bolus and infusion with no effect. Spontaneous conversion to NSR. Had short run of wide complex tachycardia upon arrival to [facility] from CICU. Pre-op evaluation 04/28/2012 05/01/2012 Overview: Preoperative evaluation for CABG. Not ReDo -Carotids: Ordered -Vein Mapping: Ordered -Bedside PFTs: Ordered -Formal TTE: Ordered -CXR: Completed documented as of this encounter (statuses as of 08/01/2022) [facility]08-[facility]-2012 History of Past illness Narrative* [...] 56, Troponin T .37 on admission to [facility] Wide-complex tachycardia 04/28/2012 012 Overview: Presented to OSH 04/28/12 in setting acute MD with wide complex tachycardia SVT versus VT. Given adenosine x2 without effect, diltiazem bolus and infusion with no effect. Spontaneous conversion to NSR. Had short run of wide complex tachycardia upon arrival to [facility] from CICU. Pre-op evaluation 04/28/2012 05/01/2012 Overview: Preoperative evaluation for CABG. Not ReDo -Carotids: Ordered -Vein Mapping: Ordered -Bedside PFTs: Ordered -Formal TTE: Ordered -CXR: Completed documented as of this encounter (statuses as of 08/03/2022) [facility] History of Past illness Narrative* [...] 56, Troponin T .37 on admission to [facility] Wide-complex tachycardia 04/28/2012 012 Overview: Presented to OSH 04/28/12 in setting acute MD with wide complex tachycardia SVT versus VT. Given adenosine x2 without effect, diltiazem bolus and infusion with no effect. Spontaneous conversion to NSR. Had short run of wide complex tachycardia upon arrival to [facility] from [facility]. Pre-op evaluation 04/28/2012 05/01/2012 Overview: Preoperative evaluation for CABG. Not ReDo -Carotids: Ordered -Vein Mapping: Ordered -Bedside PFTs: Ordered -Formal TTE: Ordered -CXR: Completed documented as of this encounter (statuses as of 08/07/2022) [facility]2012 History of Past illness Narrative* [...] 56, Troponin T .37 on admission to [facility] Wide-complex tachycardia 04/28/2012 012 Overview: Presented to OSH 04/28/12 in setting acute MD with wide complex tachycardia SVT versus VT. Given adenosine x2 without effect, diltiazem bolus and infusion with no effect. Spontaneous conversion to NSR. Had short run of wide complex tachycardia upon arrival to [facility] from [facility]. Pre-op evaluation 04/28/2012 05/01/2012 Overview: Preoperative evaluation for CABG. Not ReDo -Carotids: Ordered -Vein Mapping: Ordered -Bedside PFTs: Ordered -Formal TTE: Ordered -CXR: Completed documented as of this encounter (statuses as of 08/17/2022) [facility]08-16-2012 History of Past illness Narrative* [...] 56, Troponin T .37 on admission to [facility] Wide-complex tachycardia 04/28/2012 012 Overview: Presented to OSH 04/28/12 in setting acute MD with wide complex tachycardia SVT versus VT. Given adenosine x2 without effect, diltiazem bolus and infusion with no effect. Spontaneous conversion to NSR. Had short run of wide complex tachycardia upon arrival to [facility] from [facility]. Pre-op evaluation 04/28/2012 05/01/2012 Overview: Preoperative evaluation for CABG. Not ReDo -Carotids: Ordered -Vein Mapping: Ordered -Bedside PFTs: Ordered -Formal TTE: Ordered -CXR: Completed documented as of this encounter (statuses as of 09/03/2022) [facility]08-16-2012 History of Past illness Narrative* [...] 56, Troponin T .37 on admission to [facility] Wide-complex tachycardia 04/28/2012 012 Overview: Presented to OSH 04/28/12 in setting acute MD with wide complex tachycardia SVT versus VT. Given adenosine x2 without effect, diltiazem bolus and infusion with no effect. Spontaneous conversion to NSR. Had short run of wide complex tachycardia upon arrival to [facility] from [facility]. Pre-op evaluation 04/28/2012 05/01/2012 Overview: Preoperative evaluation for CABG. Not ReDo -Carotids: Ordered -Vein Mapping: Ordered -Bedside PFTs: Ordered -Formal TTE: Ordered -CXR: Completed documented as of this encounter (statuses as of 09/07/2022) [facility]08-[facility]-2012 History of Past illness Narrative* [...] 56, Troponin T .37 on admission to [facility] Wide-complex tachycardia 04/28/2012 012 Overview: Presented to OSH 04/28/12 in setting acute MD with wide complex tachycardia SVT versus VT. Given adenosine x2 without effect, diltiazem bolus and infusion with no effect. Spontaneous conversion to NSR. Had short run of wide complex tachycardia upon arrival to [facility] from [facility]. Pre-op evaluation 04/28/2012 05/01/2012 Overview: Preoperative evaluation for CABG. Not ReDo -Carotids: Ordered -Vein Mapping: Ordered -Bedside PFTs: Ordered -Formal TTE: Ordered -CXR: Completed documented as of this encounter (statuses as of 10/08/2022) [facility]08-16-2012 History of Past illness Narrative* [...] 56, Troponin T .37 on admission to [facility] Wide-complex tachycardia 04/28/2012 012 Overview: Presented to OSH 04/28/12 in setting acute MD with wide complex tachycardia SVT versus VT. Given adenosine x2 without effect, diltiazem bolus and infusion with no effect. Spontaneous conversion to NSR. Had short run of wide complex tachycardia upon arrival to [facility] from [facility]. Pre-op evaluation 04/28/2012 05/01/2012 Overview: Preoperative evaluation for CABG. Not ReDo -Carotids: Ordered -Vein Mapping: Ordered -Bedside PFTs: Ordered -Formal TTE: Ordered -CXR: Completed documented as of this encounter (statuses as of 10/26/2022) [facility]08-[facility]-2012 History of Past illness Narrative* [...] 56, Troponin T .37 on admission to [facility] Wide-complex tachycardia 04/28/2012 012 Overview: Presented to OSH 04/28/12 in setting acute MD with wide complex tachycardia SVT versus VT. Given adenosine x2 without effect, diltiazem bolus and infusion with no effect. Spontaneous conversion to NSR. Had short run of wide complex tachycardia upon arrival to [facility] from [facility]. Pre-op evaluation 04/28/2012 05/01/2012 Overview: Preoperative evaluation for CABG. Not ReDo -Carotids: Ordered -Vein Mapping: Ordered -Bedside PFTs: Ordered -Formal TTE: Ordered -CXR: Completed documented as of this encounter (statuses as of 10/26/2022) [facility]08-[facility]-2012 History of Past illness Narrative* [...] 56, Troponin T .37 on admission to [facility] Wide-complex tachycardia 04/28/2012 012 Overview: Presented to OSH 04/28/12 in setting acute MD with wide complex tachycardia SVT versus VT. Given adenosine x2 without effect, diltiazem bolus and infusion with no effect. Spontaneous conversion to NSR. Had short run of wide complex tachycardia upon arrival to [facility] from [facility]. Pre-op evaluation 04/28/2012 05/01/2012 Overview: Preoperative evaluation for CABG. Not ReDo -Carotids: Ordered -Vein Mapping: Ordered -Bedside PFTs: Ordered -Formal TTE: Ordered -CXR: Completed documented as of this encounter (statuses as of 10/31/2022) [facility]08-[facility]-2012 History of Past illness Narrative* [...] 56, Troponin T .37 on admission to [facility] Wide-complex tachycardia 04/28/2012 012 Overview: Presented to OSH 04/28/12 in setting acute MD with wide complex tachycardia SVT versus VT. Given adenosine x2 without effect, diltiazem bolus and infusion with no effect. Spontaneous conversion to NSR. Had short run of wide complex tachycardia [facility]op evaluation 04/28/2012 05/01/2012 Overview: Preoperative evaluation for CABG. Not ReDo -Carotids: Ordered -Vein Mapping: Ordered -Bedside PFTs: Ordered -Formal TTE: Ordered -CXR: Completed documented as of this encounter (statuses as of 11/02/2022) [facility]08-16-2012 History of Past illness Narrative* [...] 56, Troponin T .37 on admission to [facility] Wide-complex tachycardia 04/28/2012 012 Overview: Presented to OSH 04/28/12 in setting acute MD with wide complex tachycardia SVT versus VT. Given adenosine x2 without effect, diltiazem bolus and infusion with no effect. Spontaneous conversion to NSR. Had short run of wide complex tachycardia upon arrival to [facility] from [facility]. Pre-op evaluation 04/28/2012 05/01/2012 Overview: Preoperative evaluation for CABG. Not ReDo -Carotids: Ordered -Vein Mapping: Ordered -Bedside PFTs: Ordered -Formal TTE: Ordered -CXR: Completed documented as of this encounter (statuses as of 11/07/2022) [facility]08-16-2012 History of Past illness Narrative* [...] 56, Troponin T .37 on admission to [facility] Wide-complex tachycardia 04/28/2012 012 Overview: Presented to OSH 04/28/12 in setting acute MD with wide complex tachycardia SVT versus VT. Given adenosine x2 without effect, diltiazem bolus and infusion with no effect. Spontaneous conversion to NSR. Had short run of wide complex tachycardia upon arrival to [facility] from [facility]. Pre-op evaluation 04/28/2012 05/01/2012 Overview: Preoperative evaluation for CABG. Not ReDo -Carotids: Ordered -Vein Mapping: Ordered -Bedside PFTs: Ordered -Formal TTE: Ordered -CXR: Completed documented as of this encounter (statuses as of 11/29/2022) [facility]08-16-2012 History of Past illness Narrative* [...] 56, Troponin T .37 on admission to [facility] Wide-complex tachycardia 04/28/2012 012 Overview: Presented to OSH 04/28/12 in setting acute MD with wide complex tachycardia SVT versus VT. Given adenosine x2 without effect, diltiazem bolus and infusion with no effect. Spontaneous conversion to NSR. Had short run of wide complex tachycardia [facility] Pre-op evaluation 04/28/2012 05/01/2012 Overview: Preoperative evaluation for CABG. Not ReDo -Carotids: Ordered -Vein Mapping: Ordered -Bedside PFTs: Ordered -Formal TTE: Ordered -CXR: Completed documented as of this encounter (statuses as of 11/30/2022) [facility]08-[facility]-2012 History of Past illness Narrative* [...] 56, Troponin T .37 on admission to [facility] Wide-complex tachycardia 04/28/2012 012 Overview: Presented to OSH 04/28/12 in setting acute MD with wide complex tachycardia SVT versus VT. Given adenosine x2 without effect, diltiazem bolus and infusion with no effect. Spontaneous conversion to NSR. Had short run of wide complex tachycardia upon arrival to [facility] from [facility]. Pre-op evaluation 04/28/2012 05/01/2012 Overview: Preoperative evaluation for CABG. Not ReDo -Carotids: Ordered -Vein Mapping: Ordered -Bedside PFTs: Ordered -Formal TTE: Ordered -CXR: Completed documented as of this encounter (statuses as of 12/03/2022) [facility]08-[facility]-2012 History of Past illness Narrative* [...] 56, Troponin T .37 on admission to [facility] Wide-complex tachycardia 04/28/2012 012 Overview: Presented to OSH 04/28/12 in setting acute MD with wide complex tachycardia SVT versus VT. Given adenosine x2 without effect, diltiazem bolus and infusion with no effect. Spontaneous conversion to NSR. Had short run of wide complex tachycardia upon arrival to [facility] from [facility]. Pre-op evaluation 04/28/2012 05/01/2012 Overview: Preoperative evaluation for CABG. Not ReDo -Carotids: Ordered -Vein Mapping: Ordered -Bedside PFTs: Ordered -Formal TTE: Ordered -CXR: Completed documented as of this encounter (statuses as of 02/21/2023) [facility]08-16-2012 History of Past illness Narrative* [...] 56, Troponin T .37 on admission to [facility] Wide-complex tachycardia 04/28/2012 Overview: Presented to OSH 04/28/12 in setting acute MD with wide complex tachycardia SVT versus VT. Given adenosine x2 without effect, diltiazem bolus and infusion with no effect. Spontaneous conversion to NSR. Had short run of wide complex tachycardia [facility] Pre-op evaluation 04/28/2012 05/01/2012 Overview: Preoperative evaluation for CABG. Not ReDo -Carotids: Ordered -Vein Mapping: Ordered -Bedside PFTs: Ordered -Formal TTE: Ordered -CXR: Completed documented as of this encounter (statuses as of 04/27/2023) [facility]08[facility] History of Past illness Narrative* [...] 56, Troponin T .37 on admission to [facility] Wide-complex tachycardia 04/28/2012 Overview: Presented to OSH 04/28/12 in setting acute MD with wide complex tachycardia SVT versus VT. Given adenosine x2 without effect, diltiazem bolus and infusion with no effect. Spontaneous conversion to NSR. Had short run of wide complex tachycardia upon arrival to [facility] from [facility]. Pre-op evaluation 04/28/2012 05/01/2012 Overview: Preoperative evaluation for CABG. Not ReDo -Carotids: Ordered -Vein Mapping: Ordered -Bedside PFTs: Ordered -Formal TTE: Ordered -CXR: Completed documented as of this encounter (statuses as of 05/09/2023) [facility]08-[facility] History of Past illness Narrative* [...] 56, Troponin T .37 on admission to [facility] Wide-complex tachycardia 04/28/2012 Overview: Presented to OSH 04/28/12 in setting acute MD with wide complex tachycardia SVT versus VT. Given adenosine x2 without effect, diltiazem bolus and infusion with no effect. Spontaneous conversion to NSR. Had short run of wide complex tachycardia upon arrival to [facility] from [facility]. Pre-op evaluation 04/28/2012 05/01/2012 Overview: Preoperative evaluation for CABG. Not ReDo -Carotids: Ordered -Vein Mapping: Ordered -Bedside PFTs: Ordered -Formal TTE: Ordered -CXR: Completed documented as of this encounter (statuses as of 08/23/2023) [facility] History of Past illness Narrative* [...] 56, Troponin T .37 on admission to [facility] Wide-complex tachycardia 04/28/2012 Overview: Presented to OSH 04/28/12 in setting acute MD with wide complex tachycardia SVT versus VT. Given adenosine x2 without effect, diltiazem bolus and infusion with no effect. Spontaneous conversion to NSR. Had short run of wide complex tachycardia [facility] Pre-op evaluation 04/28/2012 05/01/2012 Overview: Preoperative evaluation for CABG. Not ReDo -Carotids: Ordered -Vein Mapping: Ordered -Bedside PFTs: Ordered -Formal TTE: Ordered -CXR: Completed documented as of this encounter (statuses as of 08/27/2023) [facility] Diagnosis Malignant neoplasm of prostate (HCC)- Primary Malignant neoplasm of prostate [facility] Diagnosis Unspecified hypothyroidism- Primary Hypercholesterolemia Pure hypercholesterolemia Abnormal finding of blood chemistry, unspecified [facility] Malignant neoplasm of prostate (HCC)- Primary Malignant neoplasm of prostate [facility] Diagnosis Chronic systolic heart failure (HCC)- Primary Chronic systolic heart failure [facility] Diagnosis Mitral valve insufficiency, unspecified etiology- Primary Chronic systolic heart failure (HCC) Chronic systolic heart failure [facility] Diagnosis Bilateral carotid artery stenosis- Primary Occlusion and stenosis of carotid artery without mention of cerebral infarction [facility] Diagnosis 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- Primary Heart failure, [...] stenosis, asymptomatic, bilateral [facility] Chronic systolic heart failure (HCC)- Primary Chronic systolic heart failure 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 [facility] Diagnosis Malignant neoplasm of prostate (HCC)- Primary Malignant neoplasm of prostate [facility] Diagnosis Chronic systolic heart failure (HCC) Chronic systolic heart failure 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 [facility] Diagnosis 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- Primary Heart failure, acute systolic (HCC) Acute systolic heart failure Preop testing Preoperative examination, unspecified Carotid stenosis, asymptomatic, bilateral Preoperative cardiovascular examination Pre-operative cardiovascular examination [facility] Diagnosis 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 kidney disease, unspecified CKD stage, unspecified whether oil heaterman insulin use (HCC)- Primary PVD (peripheral vascular disease) ([facility]) Peripheral vascular disease, unspecified 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 ([facility]) [facility] Diagnosis Chronic 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)- Primary Chronic combined systolic and diastolic heart failure 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 Essential hypertension Unspecified essential hypertension Hx of CABG Postsurgical aortocoronary bypass status Mixed hyperlipidemia Systolic heart failure, unspecified HF chronicity (HCC) 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 kidney disease, unspecified CKD stage, unspecified whether mcc insulin use (HCC) PVD (peripheral vascular disease) ([facility]) Peripheral vascular disease, unspecified 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 ([facility]) Mitral valve insufficiency, unspecified etiology [facility] Diagnosis Atherosclerosis of [place] coronary artery, unspecified whether angina present, unspecified whether pe[place] or transplanted heart- Primary [facility] Mitral valve insufficiency, unspecified etiology- Primary HFrEF (heart failure with reduced ejection fraction) (HCC) Heart failure, unspecified SOB (shortness of breath) Shortness of breath Hx of CABG Postsurgical aortocoronary bypass status 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 Essential hypertension Unspecified essential hypertension [facility] Diagnosis Severe mitral regurgitation- Primary Mitral valve disorders Cardiomyopathy, ischemic Other specified forms of chronic ischemic heart disease S/P CABG (coronary artery bypass graft) Postsurgical aortocoronary bypass status Sore throat Acute pharyngitis Unspecified severe protein-calorie malnutrition (HCC) [facility] IRB [id number] Empower Assessment of the CARILLON Mitral Contour System in Treating Functional Mitral Regurgitation Associated with Heart Failure PI: Hussein- Primary [facility] Diagnosis Study name: EMPOWER Trial IRB# [id number] Primary [facility] Diagnosis 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)- Primary Coronary artery disease involving coronary bypass graft of pe[place] heart with angina pectoris (HCC) Chronic systolic [...] protein-calorie malnutrition (HCC) [facility] Diagnosis [facility] Study- Primary [facility] Diagnosis EMPOWER Trial IRB# [id number] Screening visit- Primary Examination of participant in clinical trial [facility] Diagnosis Severe mitral regurgitation- Primary Mitral valve disorders Examination of participant in clinical trial SANTILLAN (dyspnea on exertion) Other dyspnea and respiratory abnormality [facility] Diagnosis Mitral valve insufficiency, unspecified etiology- Primary [facility] Diagnosis Mitral valve insufficiency, unspecified etiology- Primary [facility]* Diagnosis Acute decompensated heart failure (HCC) Congestive heart failure, unspecified Mitral valve insufficiency, unspecified etiology [facility] Diagnosis 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)- Primary [facility]* Diagnosis Dental caries- Primary Unspecified dental caries Pre-operative clearance Preoperative examination, unspecified Non-rheumatic mitral regurgitation Mitral valve disorders Severe mitral regurgitation Mitral valve disorders [facility] Diagnosis Severe mitral regurgitation- Primary Mitral valve disorders Status post implantation of mitral valve leaflet clip [facility] Diagnosis 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 [facility] Diagnosis Cerebrovascular accident (CVA) due to other mechanism ([facility])- Primary Cataract, nuclear sclerotic senile, bilateral [facility] Diagnosis 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 Carotid stenosis, 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, left Atrial fibrillation, unspecified type ([facility]) Mixed hyperlipidemia Essential hypertension Unspecified essential hypertension [facility]* Diagnosis Cardiomyopathy, ischemic- Primary Other specified forms of chronic ischemic heart disease S/P mitral valve clip implantation Stage 3b chronic kidney disease ([facility]) [facility] Diagnosis 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- Primary Chronic systolic heart failure (HCC) Chronic systolic heart failure S/P CABG (coronary artery bypass graft) Postsurgical aortocoronary bypass status Non-rheumatic mitral regurgitation Mitral valve disorders Severe mitral regurgitation Mitral valve disorders [facility] Diagnosis History of prostate cancer- Primary Personal history of malignant neoplasm of prostate [facility]* Diagnosis Chronic systolic heart failure (HCC)- Primary Chronic systolic heart failure Non-rheumatic mitral regurgitation Mitral valve disorders [facility]* Diagnosis SANTILLAN (dyspnea on exertion)- Primary Other dyspnea and respiratory abnormality Mitral valve insufficiency, unspecified etiology [facility]* Diagnosis Frequent PVCs- Primary Other premature beats [facility]* Diagnosis PVC (premature ventricular contraction)- Primary Other premature beats [facility]* Diagnosis PVC (premature ventricular contraction)- Primary Other premature beats [facility] Diagnosis Carotid stenosis, 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, left- Primary Pacemaker reprogramming/check Fitting and adjustment of cardiac pacemaker [facility] Diagnosis Frequent PVCs Other premature beats Pacemaker reprogramming/check Fitting and adjustment of cardiac pacemaker [facility] Diagnosis Frequent PVCs- Primary Other premature beats Heart failure, acute systolic (HCC) Acute systolic heart failure 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) Carotid stenosis, 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, left 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 Acute on chronic systolic congestive heart failure (HCC) Acute on chronic systolic heart failure S/P CABG (coronary artery bypass graft) Postsurgical aortocoronary bypass status Paroxysmal atrial fibrillation (HCC) Atrial fibrillation Pacemaker reprogramming/check Fitting and adjustment of cardiac pacemaker [facility] Diagnosis Pacemaker reprogramming/check Fitting and adjustment of cardiac pacemaker Pacemaker reprogramming/check Fitting and adjustment of cardiac pacemaker [facility]* Diagnosis Amaurosis fugax- Primary Transient arterial [...] of cardiac pacemaker [facility]* Diagnosis Heart failure, acute systolic (HCC)- Primary Acute systolic heart failure Acute on chronic systolic congestive heart failure (HCC) Acute on chronic systolic heart failure Carotid stenosis, 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, left Pacemaker reprogramming/check Fitting and adjustment of cardiac pacemaker [facility]* Diagnosis Chronic systolic heart failure (HCC)- Primary Chronic systolic heart failure Pacemaker reprogramming/check Fitting and adjustment of cardiac pacemaker [facility]* Diagnosis Heart failure, acute systolic (HCC)- Primary Acute systolic heart failure Pacemaker reprogramming/check Fitting and adjustment of cardiac pacemaker documented in this encounter [facility]* Diagnosis S/P AVR (aortic valve replacement) Heart valve replaced by other means [facility] filedocument[facility] in this [facility] filedocumented in this [facility] filedocumented in this [facility] filedocumented in [facility] (n[facility]ative)* Outpatient Procedure (Routine) - Authorized Specialty Diagnoses / Procedures Referred By Jordon t Referred To [facility] Diagnoses Chronic systolic heart failure (HCC) Procedures ECHO ECHO TTHRC R-T 2D W/WOM-MODE COMPL SPEC&COLR D Zahra Pierre MD [address] [place] [address] [address] Referral ID Status Reason Start Date Expiration Date Visits Requested Visits Authorized [id number] Authorized Auto-Generat ed Referral 06/06/2022 06/06/2023 1 1 * Outpatient Procedure (Routine) - Authorized Specialty Diagnoses / Procedures Referred By Contac t Referred To Contact [facility] Diagnoses Chronic systolic heart failure (HCC) Procedures ECG COMPLETE ECG ROUTINE ECG W/LEAST 12 LDS W/I&R Zahra Pierre MD [address] [place] [address] [place] [address] Referral ID Status Reason Start Date Expiration Date Visits Requested Visits Authorized [id number] Authorized Auto-Generat ed Referral 06/06/2022 06/06/2023 1 1 [facility] for referral (narrative)* Outpatient Procedure (Routine) - Authorized Specialty Diagnoses / Procedures Referred By Contac t Referred To Contact [facility] Diagnoses Bilateral carotid artery stenosis Procedures US CAROTID ARTERIES [facility] DUPLEX SCAN EXTRACRANIAL ART COMPL BI STUDY John Jefferson MD [address] [place] [address] [place] [address] Referral ID Status Reason Start Date Expiration Date Visits Requested Visits Authorized [id number] Authorized Auto-Generat ed Referral 08/03/2023 1 1 [facility] for referral (narrative)* Diagnostic Procedure Only (Routine) - Pending Review Specialty Diagnoses / Procedures Referred By Jordon t Referred To Contact [facility] Diagnoses Chronic systolic heart failure (HCC) 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 Procedures NM PET/CT CARDIAC VIABILITY MYOCRD IMG PET PRFUJ W/METAB 2RTRACER CNCRNT CT Zahra Pierre MD [address] [place] [address] [facility] [address] [place] [address] Referral ID Status Reason Start Date Expiration Date Visits Requested Visits Authorized [id number] Pending Review Auto-Generat ed Referral 2 10/06/2023 1 1 * Diagnostic Procedure Only (Routine) - Pending Review Specialty Diagnoses / Procedures Referred By Jordon rao Referred To Contact [facility] Diagnoses Chronic systolic heart failure (HCC) 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 Procedures NM PET/CT CARDIAC PERF REST/STRESS MYOCRD IMG PET PRFUJ JAW SKINNER STD RST & STRS CNCRNT CT Zahra Pierre MD [address] [place] [address] [facility] [address] [place] [address] Referral ID Status Reason Start Date Expiration Date V isits Requested Visits Authorized [id number] Closed Auto-Generate d Referral 09/06/2022 10/06/2023 1 1 [facility] for referral (narrative)* Outpatient Procedure (Routine) - Authorized Specialty Diagnoses / Procedures Referred By [facility] Referred To Contact [facility] [place] Diagnoses Chronic 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) Procedures ECHO ECHO TTHRC R-T 2D W/WOM-MODE COMPL SPEC&COLR D Virgil Carrillo MD [address] [place] [address] [facility] [place] [address] Referral ID Status Reason Start Date Expiration Date Visits Requested Visits Authorized [id number] Authorized Auto-Generat ed Referral 10/30/2023 10/29/2024 1 1 * Outpatient Procedure (Routine) - Authorized Specialty Diagnoses / Procedures Referred [facility] Referred To [facility] Diagnoses Chronic 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) Procedures ECG COMPLETE ECG ROUTINE ECG W/LEAST 12 LDS W/I&R Virgil Carrillo MD [address] [place] [address] [facility] [place] [address] [place] [address] Referral ID Status Reason Start Date Expiration Date Visits Requested Visits Authorized [id number] Authorized Auto-Generat ed Referral 10/30/2023 10/29/2024 1 1 * Transition of Care (Routine) - Ref Not Required Specialty Diagnoses / Procedures Referred By Jordon rao Referred To Contact Procedures CARDIOVASCULAR MEDICINE OP FOLLOW UP APPT ORDER Virgil Carrillo MD [address] [address] Referral ID Status Reason Start Date Expiration Date Visits Requested Visits Authorized [id number] Ref Not Required PCP Requested Referral 01/28/2024 10/29/2024 1 1 [facility] for referral (narrative)* Outpatient Procedure (Routine) - Pending Review Specialty Diagnoses / Procedures Referred By Jordon rao Referred To Contact [facility] [place] Diagnoses Atherosclerosis of pechanga coronary artery, unspecified whether angina present, unspecified whether pechanga or transplanted heart Procedures ECHO ECHO TTHRC R-T 2D W/WOM-MODE COMPL SPEC&COLR D Virgil Carrillo MD [address] [place] [address] [facility] [place] [address] [place] [address] Referral ID Status Reason Start Date Expiration Date Visits Requested Visits Authorized [id number] Pending Review Auto-Generat ed Referral 11/26/2023 11/25/2024 1 1 * Outpatient Procedure (Routine) - Authorized Specialty Diagnoses / Procedures Referred By Jordon t Referred To Contact [facility] [place] Diagnoses Atherosclerosis of pechanga coronary artery, unspecified whether angina present, unspecified whether pechanga or transplanted heart Procedures ECG COMPLETE ECG ROUTINE ECG W/LEAST 12 LDS W/I&R Virgil Carrillo MD [address] [place] [address] [facility] [address] [place] [address] Referral ID Status Reason Start Date Expiration Date Visits Requested Visits Authorized [id number] Authorized Auto-Generat ed Referral 11/26/2023 11/25/2024 1 1 [facility] for referral (narrative)* Outpatient Procedure (Routine) - Pending Review Specialty Diagnoses / Procedures Referred By Contac t Referred To Contact [facility] Diagnoses HFrEF (heart failure with reduced ejection fraction) (HCC) Mitral valve insufficiency, unspecified etiology Procedures ECHO ECHO TTHRC R-T 2D W/WOM-MODE COMPL SPEC&COLR D Carmelina Ramos, ANAND.DOROTHY [address] [place] [address] [address] Referral ID Status Reason Start Date Expiration Date Visits Requested Visits Authorized [id number] Pending Review Auto-Generat ed Referral 12/23/2023 12/22/2024 1 1 * Outpatient Procedure (Routine) - Pending Review Specialty Diagnoses / Procedures Referred By Contac t Referred To Contact [facility] Diagnoses HFrEF (heart failure with reduced ejection fraction) (HCC) Mitral valve insufficiency, unspecified etiology Procedures ECG COMPLETE ECG ROUTINE ECG W/LEAST 12 LDS W/I&R Carmelina Ramos APRN.CNP [address] [place] [address] [place] [address] [place] [address] Referral ID Status Reason Start Date Expiration Date Visits Requested Visits Authorized [id number] Pending Review Auto-Generat ed Referral 12/23/2023 12/22/2024 1 1 * Transition of Care (Routine) - Ref Not Required Specialty Diagnoses / Procedures Referred By Contac t Referred To Contact [facility] [place] Diagnoses Mitral valve insufficiency, unspecified etiology Procedures CARDIOVASCULAR MEDICINE OP FOLLOW UP APPT ORDER Carmelina Ramos APRN.CNP [address] [id number] [place] [address] Referral ID Status Reason Start Date Expiration Date Visits Requested Visits Authorized [id number] Ref Not Required PCP Requested Referral 03/23/2024 12/22/2024 1 1 [facility] for referral (narrative)* Outpatient Procedure (Routine) - Pending Review Specialty Diagnoses / Procedures Referred By Contac t Referred To Contact [facility] Diagnoses Severe mitral regurgitation Cardiomyopathy, ischemic S/P CABG (coronary artery bypass graft) Procedures ECHO ECHO TTHRC R-T 2D W/WOM-MODE COMPL SPEC&COLR D Jethro Brady MD [address] [facility] [address] [place] [phone] Referral ID Status Reason Start Date Expiration Date Visits Requested Visits Authorized [id number] Pending Review Auto-Generat ed Referral 12/26/2023 12/25/2024 1 1 * Outpatient Procedure (Routine) - Pending Review Specialty Diagnoses / Procedures Referred By Contac t Referred To Contact [facility] Diagnoses Severe mitral regurgitation Cardiomyopathy, ischemic S/P CABG (coronary artery bypass graft) Procedures ECG COMPLETE ECG ROUTINE ECG W/LEAST 12 LDS W/I&R Jethro Brady MD [address] [place] [address] [address] Referral ID Status Reason Start Date Expiration Date Visits Requested Visits Authorized [id number] Pending Review Auto-Generat ed Referral 12/26/2023 12/25/2024 1 1 * Transition of Care (Routine) - Ref Not Required Specialty Diagnoses / Procedures Referred By Contac t Referred To Contact [facility] Procedures CARDIOVASCULAR MEDICINE [place] FO[place] [address] [place], [place] [address] [place] [id number] [place] [address] Referral ID Status Reason Start Date Expiration Date Visits Requested Visits Authorized [id number] Ref Not Required PCP Requested Referral 03/26/2024 12/25/2024 1 1 * Consult, Test, Treat (Routine) - Authorized Specialty Diagnoses / Procedures Referred By Contac t Referred To Contact Ent - Otolaryngology Diagnoses Sore throat Procedures CONSULT TO ENT OFFICE/OUTPATIENT [facility] 60 [place] [address] [place] [address] Referral ID Status Reason Start Date Expiration Date Visits Requested Visits Authorized [id number] Authorized PCP Requested Referral 12/26/2023 12/25/2024 1 1 [facility] for referral (narrative)* Outpatient Procedure (Routine) - Authorized Specialty Diagnoses / Procedures Referred By Contac t Referred To Contact [facility] Diagnoses Severe mitral regurgitation Status post implantation of mitral valve leaflet clip Procedures ECG COMPLETE ECG ROUTINE ECG W/LEAST 12 LDS W/[place] [address] [place] [address] [address] Referral ID Status Reason Start Date Expiration Date Visits Requested Visits Authorized [id number] Authorized Auto-Generat ed Referral 02/27/2024 2025 1 1 * Outpatient Procedure (Routine) - Authorized Specialty Diagnoses / Procedures Referred By Jordon t Referred To Contact [facility] [place] Diagnoses Severe mitral regurgitation Status post implantation of mitral valve leaflet clip Procedures ECG COMPLETE ECG ROUTINE ECG W/LEAST 12 LDS W/I&R Jethro Brady MD [address] [facility] [address] [place] [address] Referral ID Status Reason Start Date Expiration Date Visits Requested Visits Authorized [id number] Authorized Auto-Generat ed Referral 02/20/2024 2025 1 1 * Outpatient Procedure (Routine) - Authorized Specialty Diagnoses / Procedures Referred By Jordon rao Referred To Contact [facility] Diagnoses Severe mitral regurgitation Status post implantation of mitral valve leaflet clip Procedures ECHO ECHO TTHRC R-T 2D W/WOM-MODE COMPL SPEC&COLR D Jethro Brady MD [address] [place] [address] [address] Referral ID Status Reason Start Date Expiration Date Visits Requested Visits Authorized [id number] Authorized Auto-Generat ed Referral 02/20/2024 2025 1 1 [facility] for referral (narrative)* Diagnostic Procedure Only (Routine) - Pending Review Specialty Diagnoses / Procedures Referred By Jordon rao Referred To Contact [facility] IMAGING Diagnoses Carotid stenosis, 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, left Procedures US CAROTID BILATERAL Luís Skinner, KNIFE BLADE POLISHER.EDISCOVERY PROJECT MANAGER [address] [address] [facility]95 Referral ID Status Reason Start Date Expiration Date Visits Requested Visits Authorized [id number] Pending Review Auto-Generat ed Referral 03/18/2024 04/17/2025 1 1 [facility] for referral (narrative)* Outpatient Procedure (Routine) - New Request Specialty Diagnoses / Procedures Referred By Contac t Referred To Contact [facility] [place] Diagnoses Frequent PVCs Procedures ECG COMPLETE ECG ROUTINE ECG W/LEAST 12 LDS W/I&R Nj Wei MD [address] [place] [id number] [facility] [address] [place] [phone] Referral ID Status Reason Start Date Expiration Date Visits Requested Visits Authorized [id number] New Request Auto-Generat ed Referral 07/27/2025 1 1 [facility] for referral (narrative)* Diagnostic Procedure Only (Routine) - New Request Specialty Diagnoses / Procedures Referred By Contac t Referred To Contact [facility] Diagnoses Carotid stenosis, 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, left Procedures US CAROTID BILATERAL Luís Skinner APRN.CNP [address] [address] [facility] Imaging [facility]95 Referral ID Status Reason Start Date Expiration Date Visits Requested Visits Authorized [id number] New Request Auto-Generat ed Referral 08/18/2024 09/17/2025 1 1 [facility] for referral (narrative)* Outpatient Procedure (Routine) - Closed Specialty Diagnoses / Procedures Referred By Contac t Referred To Contact [facility] [place] Diagnoses Pacemaker reprogramming/check Procedures CARDIAC IMPLANTABLE DEVICE CHECK Card Ep [facility] Main [address] [place] [address] [facility] [address] [place] [phone] Referral ID Status Reason Start Date Expiration Date V isits Requested Visits Authorized [id number] Closed Auto-Generate d Referral 08/17/2024 08/17/2025 1 1 * Outpatient Procedure (Routine) - Closed Specialty Diagnoses / Procedures Referred By Contac t Referred To Contact [facility] [place] Diagnoses Pacemaker reprogramming/check Procedures CARDIAC IMPLANTABLE DEVICE CHECK [facility] Main [address] [place] [address] [address] Referral ID Status Reason Start Date Expiration Date V isits Requested Visits Authorized [id number] Closed Auto-Generate d Referral 08/17/2024 08/17/2025 1 1 [facility] for visit Narrative* Outpatient Procedure (Routine) - Closed Specialty Diagnoses / Procedures Referred By Contac t Referred To Contact [facility] Diagnoses Pacemaker reprogramming/check Procedures CARDIAC IMPLANTABLE DEVICE CHECK [facility] Main [address] [place] [address] [address] Referral ID Status Reason Start Date Expiration Date V isits Requested Visits Authorized [id number] Closed Auto-Generate d Referral 08/17/2024 08/17/2025 1 1 [facility] for visit Narrative* Consultation (Routine) - Authorized Specialty Diagnoses / Procedures Referred By Contac t Referred To Contact Cardiac Rehabilitation Diagnoses Chronic heart failure, unspecified heart failure type ([facility]) Procedures Ambulatory referral to Cardiac Rehabilitation ([facility]) Ref Prov, [place] [address] [facility] Cardiac Rehab Billing [address] [place] [address] Referral ID Status Reason Start Date Expiration Date Visits Requested Visits Authorized [id number] Authorized Specialty Services Required 06/18/2024 06/18/2025 36 36 [facility] N[facility]* Consultation (Routine) - Authorized Specialty Diagnoses / Procedures Referred By Contac t Referred To Contact Cardiac Rehabilitation Diagnoses S/P AVR (aortic valve replacement) Procedures Ambulatory referral to Cardiac Rehabilitation (Non[facility]) Samm Thompson MD [address] [place] [address] [facility] Cardiac Rehab Billing [address] [place] [address] Referral ID Status Reason Start Date Expiration Date Visits Requested Visits Authorized [id number] Authorized Specialty Services Required 06/24/2024 06/24/2025 36 36 [facility]* Consultation (Routine) - Authorized Specialty Diagnoses / Procedures Referred By Contac t Referred To Contact Cardiac Rehabilitation Diagnoses S/P AVR (aortic valve replacement) Procedures Ambulatory referral to Cardiac Rehabilitation ([facility]) Samm Thompson MD [address] [place] [address] Phone: tel: fax: [facility] - Cardiac Rehab [address] [place] [address] Phone: tel:[phone] fax:[phone] Referral ID Status Reason Start Date Expiration Date Visits Requested Visits Authorized [id number] Authorized Specialty Services Required 06/24/2024 06/24/2025 36 36 [facility] Summary Purpose Family History No Family History Records FoundNo Family History Records FoundNo Family History Records FoundNo Family History Records FoundNo Family History Records FoundNo Family History Records FoundNo Family History Records FoundNo Family History Records FoundNo Family History Records FoundNo Family History Records Found Advance Directives No Advanced Directives Records Found Date Activated Date Inactivated Comments 09/18/2024 7:04 AM 09/25/2024 5:02 PM Question Answer Comments Full Code Order Discussed With: Patient Date Activated Date Inactivated Comments 07/22/2024 12:41 [...] With: Patient Date Activated Date Inactivated Comments 09/18/2024 7:04 AM Date Activated Date Inactivated Comments 07/22/2024 12:41 [...] 5:02 PM Date Activated Date Inactivated Comments 05/06/2024 9:26 PM Date Activated Date Inactivated Comments 03/02/2024 1:14 AM 03/05/2024 5:02 PM Date Activated Date Inactivated Comments 03/02/2024 1:14 AM 03/05/2024 5:02 PM Documents on File Type Date Recorded Patient Director Regulatory Affairs Expl anation Advance Directive(s) 03/24/2019 7:11 AM Date Activated Date Inactivated Comments 03/02/2024 1:14 AM Date Activated Date Inactivated Comments 03/02/2024 1:14 AM 03/05/2024 5:02 PM Date Activated Date Inactivated Comments 05/09/2024 4:39 PM 05/16/2024 6:06 PM Date Activated Date Inactivated Comments 05/06/2024 9:26 PM 05/09/2024 2:11 PM Date Activated Date Inactivated Comments 03/02/2024 1:14 AM 03/05/2024 5:02 PM Date Activated Date Inactivated Comments 07/22/2024 12:41 AM 07/26/2024 6:05 PM Date Activated Date Inactivated Comments 05/09/2024 4:39 PM 05/16/2024 6:06 PM Date Activated Date Inactivated Comments 05/06/2024 9:26 PM 05/09/2024 2:11 PM Date Activated Date Inactivated Comments 03/02/2024 1:14 AM 03/05/2024 5:02 PM Latest Code Status on File Code Status Date Activated Date Inactivated Comments Full Code 08/18/2021 11:48 AM 08/19/2021 7:30 PM Date Activated Date Inactivated Comments 08/18/2021 11:48 AM 08/19/2021 7:30 PM Date Activated Date Inactivated Comments 08/18/2021 11:48 AM 08/19/2021 7:30 PM Reason for Referral Specialty Diagnoses / Procedures Referred By Contac t Referred To Contact [facility] [place] Diagnoses 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 (HCC) Chronic systolic heart failure (HCC) S/P CABG (coronary artery bypass graft) Chronic 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) Acute on chronic clinical systolic heart failure (HCC) Stage 3b chronic kidney disease (HCC) Ischemic cardiomyopathy Non-ischemic cardiomyopathy (HCC) Shortness of breath Procedures CARDIOVASCULAR MEDICINE OP FOLLOW UP APPT ORDER Dorcas Fernandes MD [address] [place] [address] [id number] [place] [address] Referral ID Status Reason Start Date Expiration Date Visits Requested Visits Authorized [id number] Ref Not Required PCP Requested Referral 01/10/2024 01/09/2025 1 1 Specialty Diagnoses / Procedures Referred By Contac t Referred To Contact Nephrology Diagnoses Stage 3b chronic kidney disease (HCC) Procedures CONSULT TO NEPHROLOGY OFFICE/OUTPATIENT [facility] 60 MINUTES Jethro Brady MD [address] [place] [address] Referral ID Status Reason Start Date Expiration Date Visits Requested Visits Authorized [id number] Authorized PCP Requested Referral 03/30/2024 03/30/2025 1 1 Specialty Diagnoses / Procedures Referred By Contac t Referred To Contact [facility] [place] Diagnoses Cardiomyopathy, ischemic S/P mitral valve clip implantation Procedures ECHO ECHO TTHRC R-T 2D W/WOM-MODE COMPL SPEC&COLR D Jethro Brady MD [address] [place] [address] [address] Referral ID Status Reason Start Date Expiration Date Visits Requested Visits Authorized [id number] Authorized Auto-Generat ed Referral 03/30/2024 03/30/2025 1 1 Specialty Diagnoses / Procedures Referred By Contac t Referred To Contact [facility] [place] Diagnoses Cardiomyopathy, ischemic S/P mitral valve clip implantation Procedures ECG COMPLETE ECG ROUTINE ECG W/LEAST 12 LDS W/I&R Jethro Brady MD [address] [place] [address] [address] Referral ID Status Reason Start Date Expiration Date Visits Requested Visits Authorized [id number] Authorized Auto-Generat ed Referral 03/30/2024 03/30/2025 1 1 Specialty Diagnoses / Procedures Referred By Contac t Ref[facility] Procedures CARDIOVASCULAR MEDICINE OP FOLLOW UP APPT ORDER Jethro Brady MD [address] [place] [address] [address] Referral ID Status Reason Start Date Expiration Date Visits Requested Visits Authorized [id number] Ref Not Required PCP Requested Referral 09/30/2024 03/30/2025 1 1 Specialty Diagnoses / Procedures Referred By Contac t Referred To Contact Cardiology Diagnoses Cardiomyopathy, ischemic S/P mitral valve clip implantation Procedures CONSULT TO CARDIOLOGY OFFICE/OUTPATIENT [facility] 60 MINUTES Jethro Brady MD [address] [place] [address] Referral ID Status Reason Start Date Expiration Date Visits Requested Visits Authorized [id number] Authorized PCP Requested Referral 03/30/2024 03/30/2025 1 1 Specialty Diagnoses / Procedures Referred By Contac t Referred To [facility] Procedures CARDIOVASCULAR MEDICINE OP FOLLOW UP APPT ORDER Carmela Fernandes MD [address] [place] [address] [facility] [phone] Referral ID Status Reason Start Date Expiration Date Visits Requested Visits Authorized [id number] Ref Not Required PCP Requested Referral 06/08/2025 1 1 Specialty Diagnoses / Procedures Referred By Contac t Referred To Contact CT IMAGING Diagnoses Lung nodules Procedures CT CHEST W IVCON CAT SCAN OF CHEST CONTRAST Victor M Duval MD [address] [place] [address] [place] [address] [facility] [address] [address] [address] Referral ID Status Reason Start Date Expiration Date V isits Requested Visits Authorized [id number] Closed Auto-Generate d Referral 09/05/2021 10/05/2022 1 1 Specialty Diagnoses / Procedures Referred By Contac t Referred To Contact [facility] [place] Procedures CARDIOVASCULAR MEDICINE OP FOLLOW UP APPT ORDER Nj Wei MD [address] [place], [place] [id number] [phone] Referral ID Status Reason Start Date Expiration Date Visits Requested Visits Authorized [id number] Ref Not Required PCP Requested Referral 05/21/2025 08/19/2025 1 1 Specialty Diagnoses / Procedures Referred By Contac t Referred To Contact [facility] Diagnoses Frequent PVCs Procedures LUNG DIFFUSION CAPACITY (DLCO) [place] [address] [place], [place] [phone] [facility] [address] [place], [place] [phone] Referral ID Status Reason Start Date Expiration Date Visits Requested Visits Authorized [id number] New Request Auto-Generat ed Referral 08/19/2024 09/18/2025 1 1 Specialty Diagnoses / Procedures Referred By Contac t Referred To Contact [facility] Diagnoses Frequent PVCs Procedures SPIROMETRY BASELINE ONLY SPMTRY W/VC EXPIRATORY DANIEL W/WO MXML VOL VNTJ Nj Wei MD [address] [place] [address] [facility] [address] [place] [address] Referral ID Status Reason Start Date Expiration Date Visits Requested Visits Authorized [id number] New Request Auto-Generat ed Referral 08/19/2024 09/18/2025 1 1 Specialty Diagnoses / Procedures Referred By Contac t Referred To Contact [facility] Diagnoses Amaurosis fugax Heart failure, acute systolic (HCC) Acute on chronic systolic congestive heart failure (HCC) PVD (peripheral vascular disease) (HCC) S/P CABG (coronary artery bypass graft) Procedures CARDIOVASCULAR MEDICINE OP FOLLOW UP APPT ORDER Carmela Fernandes MD [address] [place] [address] [facility] [address] [address] Referral ID Status Reason Start Date Expiration Date Visits Requested Visits Authorized [id number] Ref Not Required PCP Requested Referral 08/19/2024 08/19/2025 1 1 Additional Source Comments (unrecognized sect ion and content) No Status Records FoundNo Status Records FoundNo Status Records FoundNo Status Records FoundNo Status Records FoundNo Status Records FoundNo Status Records FoundNo Status Records FoundNo Status Records FoundNo Status Records Found INFORMATION SOURCE (unrecogn ized section and content) DATE CREATED AUTHOR 07/29/2019 [facility] DATE CREATED AUTHOR AUTHOR'S ORGANIZ ATION 05/25/[address] [facility] DATE CREATED AUTHOR AUTHOR'S ORGANIZ ATION 02/22/2023 [facility] DATE CREATED AUTHOR AUTHOR'S ORGANIZ ATION 04/17/2024 [facility] DATE CREATED AUTHOR AUTHOR'S ORGANIZ ATION 05/13/2024 [facility] DATE CREATED AUTHOR AUTHOR'S ORGANIZ ATION 09/18/2024 [facility] DATE CREATED AUTHOR AUTHOR'S ORGANIZ ATION 10/08/2024 [facility] DATE CREATED AUTHOR AUTHOR'S ORGANIZ ATION 11/01/2024 [facility] DATE CREATED AUTHOR AUTHOR'S ORGANIZ ATION 11/14/2024 [facility] DATE CREATED AUTHOR AUTHOR'S ORGANIZ ATION 11/20/2024 [facility] Source Comments (unrecognize d section and content) In the event this informatio n is protected by the Federal Confidentiality of Alcohol and Drug Abuse Patient Records regulations: The Federal rules restrict any use of the information to criminally investigate or prosecute any alcohol or drug abuse patient.[facility] the event this information is protected by the Federal Confidentiality of Alcohol and Drug Abuse Patient Records regulations: The Federal rules restrict any use of the information to criminally investigate or prosecute any alcohol or drug abuse patient.[facility] CenterIn the event this information is protected by the Federal Confidentiality of Alcohol and Drug Abuse Patient Records regulations: The Federal rules restrict any use of the information to criminally investigate or prosecute any alcohol or drug abuse patient.[facility] CenterIn the event this information is protected by the Federal Confidentiality of Alcohol and Drug Abuse Patient Records regulations: The Federal rules restrict any use of the information to criminally investigate or prosecute any alcohol or drug abuse patient.[facility] CenterIn the event this information is protected by the Federal Confidentiality of Alcohol and Drug Abuse Patient Records regulations: The Federal rules restrict any use of the information to criminally investigate or prosecute any alcohol or drug abuse patient.[facility] CenterIn the event this information is protected by the Federal Confidentiality of Alcohol and Drug Abuse Patient Records regulations: The Federal rules restrict any use of the information to criminally investigate or prosecute any alcohol or drug abuse patient.[facility] CenterIn the event this information is protected by the Federal Confidentiality of Alcohol and Drug Abuse Patient Records regulations: The Federal rules restrict any use of the information to criminally investigate or prosecute any alcohol or drug abuse patient.[facility] CenterIn the event this information is protected by the Federal Confidentiality of Alcohol and Drug Abuse Patient Records regulations: The Federal rules restrict any use of the information to criminally investigate or prosecute any alcohol or drug abuse patient.[facility] CenterIn the event this information is protected by the Federal Confidentiality of Alcohol and Drug Abuse Patient Records regulations: The Federal rules restrict any use of the information to criminally investigate or prosecute any alcohol or drug abuse patient.[facility] CenterIn the event this information is protected by the Federal Confidentiality of Alcohol and Drug Abuse Patient Records regulations: The Federal rules restrict any use of the information to criminally investigate or prosecute any alcohol or drug abuse patient.[facility] CenterIn the event this information is protected by the Federal Confidentiality of Alcohol and Drug Abuse Patient Records regulations: The Federal rules restrict any use of the information to criminally investigate or prosecute any alcohol or drug abuse patient.[facility] CenterIn the event this information is protected by the Federal Confidentiality of Alcohol and Drug Abuse Patient Records regulations: The Federal rules restrict any use of the information to criminally investigate or prosecute any alcohol or drug abuse patient.[facility] CenterIn the event this information is protected by the Federal Confidentiality of Alcohol and Drug Abuse Patient Records regulations: The Federal rules restrict any use of the information to criminally investigate or prosecute any alcohol or drug abuse patient.[facility] CenterIn the event this information is protected by the Federal Confidentiality of Alcohol and Drug Abuse Patient Records regulations: The Federal rules restrict any use of the information to criminally investigate or prosecute any alcohol or drug abuse patient.[facility] CenterIn the event this information is protected by the Federal Confidentiality of Alcohol and Drug Abuse Patient Records regulations: The Federal rules restrict any use of the information to criminally investigate or prosecute any alcohol or drug abuse patient.[facility] CenterIn the event this information is protected by the Federal Confidentiality of Alcohol and Drug Abuse Patient Records regulations: The Federal rules restrict any use of the information to criminally investigate or prosecute any alcohol or drug abuse patient.[facility] CenterIn the event this information is protected by the Federal Confidentiality of Alcohol and Drug Abuse Patient Records regulations: The Federal rules restrict any use of the information to criminally investigate or prosecute any alcohol or drug abuse patient.[facility] CenterIn the event this information is protected by the Federal Confidentiality of Alcohol and Drug Abuse Patient Records regulations: The Federal rules restrict any use of the information to criminally investigate or prosecute any alcohol or drug abuse patient.[facility] CenterIn the event this information is protected by the Federal Confidentiality of Alcohol and Drug Abuse Patient Records regulations: The Federal rules restrict any use of the information to criminally investigate or prosecute any alcohol or drug abuse patient.[facility] CenterIn the event this information is protected by the Federal Confidentiality of Alcohol and Drug Abuse Patient Records regulations: The Federal rules restrict any use of the information to criminally investigate or prosecute any alcohol or drug abuse patient.[facility] CenterIn the event this information is protected by the Federal Confidentiality of Alcohol and Drug Abuse Patient Records regulations: The Federal rules restrict any use of the information to criminally investigate or prosecute any alcohol or drug abuse patient.[facility] CenterIn the event this information is protected by the Federal Confidentiality of Alcohol and Drug Abuse Patient Records regulations: The Federal rules restrict any use of the information to criminally investigate or prosecute any alcohol or drug abuse patient.[facility] CenterIn the event this information is protected by the Federal Confidentiality of Alcohol and Drug Abuse Patient Records regulations: The Federal rules restrict any use of the information to criminally investigate or prosecute any alcohol or drug abuse patient.[facility] CenterIn the event this information is protected by the Federal Confidentiality of Alcohol and Drug Abuse Patient Records regulations: The Federal rules restrict any use of the information to criminally investigate or prosecute any alcohol or drug abuse patient.[facility] CenterIn the event this information is protected by the Federal Confidentiality of Alcohol and Drug Abuse Patient Records regulations: The Federal rules restrict any use of the information to criminally investigate or prosecute any alcohol or drug abuse patient.[facility] CenterIn the event this information is protected by the Federal Confidentiality of Alcohol and Drug Abuse Patient Records regulations: The Federal rules restrict any use of the information to criminally investigate or prosecute any alcohol or drug abuse patient.[facility] CenterIn the event this information is protected by the Federal Confidentiality of Alcohol and Drug Abuse Patient Records regulations: The Federal rules restrict any use of the information to criminally investigate or prosecute any alcohol or drug abuse patient.[facility] CenterIn the event this information is protected by the Federal Confidentiality of Alcohol and Drug Abuse Patient Records regulations: The Federal rules restrict any use of the information to criminally investigate or prosecute any alcohol or drug abuse patient.[facility] CenterIn the event this information is protected by the Federal Confidentiality of Alcohol and Drug Abuse Patient Records regulations: The Federal rules restrict any use of the information to criminally investigate or prosecute any alcohol or drug abuse patient.[facility] CenterIn the event this information is protected by the Federal Confidentiality of Alcohol and Drug Abuse Patient Records regulations: The Federal rules restrict any use of the information to criminally investigate or prosecute any alcohol or drug abuse patient.[facility] CenterIn the event this information is protected by the Federal Confidentiality of Alcohol and Drug Abuse Patient Records regulations: The Federal rules restrict any use of the information to criminally investigate or prosecute any alcohol or drug abuse patient.[facility] CenterIn the event this information is protected by the Federal Confidentiality of Alcohol and Drug Abuse Patient Records regulations: The Federal rules restrict any use of the information to criminally investigate or prosecute any alcohol or drug abuse patient.[facility] CenterIn the event this information is protected by the Federal Confidentiality of Alcohol and Drug Abuse Patient Records regulations: The Federal rules restrict any use of the information to criminally investigate or prosecute any alcohol or drug abuse patient.[facility] CenterIn the event this information is protected by the Federal Confidentiality of Alcohol and Drug Abuse Patient Records regulations: The Federal rules restrict any use of the information to criminally investigate or prosecute any alcohol or drug abuse patient.[facility] CenterIn the event this information is protected by the Federal Confidentiality of Alcohol and Drug Abuse Patient Records regulations: The Federal rules restrict any use of the information to criminally investigate or prosecute any alcohol or drug abuse patient.[facility] CenterIn the event this information is protected by the Federal Confidentiality of Alcohol and Drug Abuse Patient Records regulations: The Federal rules restrict any use of the information to criminally investigate or prosecute any alcohol or drug abuse patient.[facility] CenterIn the event this information is protected by the Federal Confidentiality of Alcohol and Drug Abuse Patient Records regulations: The Federal rules restrict any use of the information to criminally investigate or prosecute any alcohol or drug abuse patient.[facility] CenterIn the event this information is protected by the Federal Confidentiality of Alcohol and Drug Abuse Patient Records regulations: The Federal rules restrict any use of the information to criminally investigate or prosecute any alcohol or drug abuse patient.[facility] CenterIn the event this information is protected by the Federal Confidentiality of Alcohol and Drug Abuse Patient Records regulations: The Federal rules restrict any use of the information to criminally investigate or prosecute any alcohol or drug abuse patient.[facility] CenterIn the event this information is protected by the Federal Confidentiality of Alcohol and Drug Abuse Patient Records regulations: The Federal rules restrict any use of the information to criminally investigate or prosecute any alcohol or drug abuse patient.[facility] CenterIn the event this information is protected by the Federal Confidentiality of Alcohol and Drug Abuse Patient Records regulations: The Federal rules restrict any use of the information to criminally investigate or prosecute any alcohol or drug abuse patient.[facility] CenterIn the event this information is protected by the Federal Confidentiality of Alcohol and Drug Abuse Patient Records regulations: The Federal rules restrict any use of the information to criminally investigate or prosecute any alcohol or drug abuse patient.[facility] CenterIn the event this information is protected by the Federal Confidentiality of Alcohol and Drug Abuse Patient Records regulations: The Federal rules restrict any use of the information to criminally investigate or prosecute any alcohol or drug abuse patient.[facility] CenterIn the event this information is protected by the Federal Confidentiality of Alcohol and Drug Abuse Patient Records regulations: The Federal rules restrict any use of the information to criminally investigate or prosecute any alcohol or drug abuse patient.[facility] CenterIn the event this information is protected by the Federal Confidentiality of Alcohol and Drug Abuse Patient Records regulations: The Federal rules restrict any use of the information to criminally investigate or prosecute any alcohol or drug abuse patient.[facility] CenterIn the event this information is protected by the Federal Confidentiality of Alcohol and Drug Abuse Patient Records regulations: The Federal rules restrict any use of the information to criminally investigate or prosecute any alcohol or drug abuse patient.[facility] CenterIn the event this information is protected by the Federal Confidentiality of Alcohol and Drug Abuse Patient Records regulations: The Federal rules restrict any use of the information to criminally investigate or prosecute any alcohol or drug abuse patient.[facility] CenterIn the event this information is protected by the Federal Confidentiality of Alcohol and Drug Abuse Patient Records regulations: The Federal rules restrict any use of the information to criminally investigate or prosecute any alcohol or drug abuse patient.[facility] CenterIn the event this information is protected by the Federal Confidentiality of Alcohol and Drug Abuse Patient Records regulations: The Federal rules restrict any use of the information to criminally investigate or prosecute any alcohol or drug abuse patient.[facility] CenterIn the event this information is protected by the Federal Confidentiality of Alcohol and Drug Abuse Patient Records regulations: The Federal rules restrict any use of the information to criminally investigate or prosecute any alcohol or drug abuse patient.[facility] CenterIn the event this information is protected by the Federal Confidentiality of Alcohol and Drug Abuse Patient Records regulations: The Federal rules restrict any use of the information to criminally investigate or prosecute any alcohol or drug abuse patient.[facility] CenterIn the event this information is protected by the Federal Confidentiality of Alcohol and Drug Abuse Patient Records regulations: The Federal rules restrict any use of the information to criminally investigate or prosecute any alcohol or drug abuse patient.[facility] CenterIn the event this information is protected by the Federal Confidentiality of Alcohol and Drug Abuse Patient Records regulations: The Federal rules restrict any use of the information to criminally investigate or prosecute any alcohol or drug abuse patient.[facility] CenterIn the event this information is protected by the Federal Confidentiality of Alcohol and Drug Abuse Patient Records regulations: The Federal rules restrict any use of the information to criminally investigate or prosecute any alcohol or drug abuse patient.[facility] CenterIn the event this information is protected by the Federal Confidentiality of Alcohol and Drug Abuse Patient Records regulations: The Federal rules restrict any use of the information to criminally investigate or prosecute any alcohol or drug abuse patient.[facility] CenterIn the event this information is protected by the Federal Confidentiality of Alcohol and Drug Abuse Patient Records regulations: The Federal rules restrict any use of the information to criminally investigate or prosecute any alcohol or drug abuse patient.[facility] CenterIn the event this information is protected by the Federal Confidentiality of Alcohol and Drug Abuse Patient Records regulations: The Federal rules restrict any use of the information to criminally investigate or prosecute any alcohol or drug abuse patient.[facility] CenterIn the event this information is protected by the Federal Confidentiality of Alcohol and Drug Abuse Patient Records regulations: The Federal rules restrict any use of the information to criminally investigate or prosecute any alcohol or drug abuse patient.[facility] CenterIn the event this information is protected by the Federal Confidentiality of Alcohol and Drug Abuse Patient Records regulations: The Federal rules restrict any use of the information to criminally investigate or prosecute any alcohol or drug abuse patient.[facility] CenterIn the event this information is protected by the Federal Confidentiality of Alcohol and Drug Abuse Patient Records regulations: The Federal rules restrict any use of the information to criminally investigate or prosecute any alcohol or drug abuse patient.[facility] CenterIn the event this information is protected by the Federal Confidentiality of Alcohol and Drug Abuse Patient Records regulations: The Federal rules restrict any use of the information to criminally investigate or prosecute any alcohol or drug abuse patient.[facility] CenterIn the event this information is protected by the Federal Confidentiality of Alcohol and Drug Abuse Patient Records regulations: The Federal rules restrict any use of the information to criminally investigate or prosecute any alcohol or drug abuse patient.[facility] CenterIn the event this information is protected by the Federal Confidentiality of Alcohol and Drug Abuse Patient Records regulations: The Federal rules restrict any use of the information to criminally investigate or prosecute any alcohol or drug abuse patient.[facility] CenterIn the event this information is protected by the Federal Confidentiality of Alcohol and Drug Abuse Patient Records regulations: The Federal rules restrict any use of the information to criminally investigate or prosecute any alcohol or drug abuse patient.[facility] CenterIn the event this information is protected by the Federal Confidentiality of Alcohol and Drug Abuse Patient Records regulations: The Federal rules restrict any use of the information to criminally investigate or prosecute any alcohol or drug abuse patient.[facility] CenterIn the event this information is protected by the Federal Confidentiality of Alcohol and Drug Abuse Patient Records regulations: The Federal rules restrict any use of the information to criminally investigate or prosecute any alcohol or drug abuse patient.[facility] CenterIn the event this information is protected by the Federal Confidentiality of Alcohol and Drug Abuse Patient Records regulations: The Federal rules restrict any use of the information to criminally investigate or prosecute any alcohol or drug abuse patient.[facility] CenterIn the event this information is protected by the Federal Confidentiality of Alcohol and Drug Abuse Patient Records regulations: The Federal rules restrict any use of the information to criminally investigate or prosecute any alcohol or drug abuse patient.[facility] CenterIn the event this information is protected by the Federal Confidentiality of Alcohol and Drug Abuse Patient Records regulations: The Federal rules restrict any use of the information to criminally investigate or prosecute any alcohol or drug abuse patient.[facility] CenterIn the event this information is protected by the Federal Confidentiality of Alcohol and Drug Abuse Patient Records regulations: The Federal rules restrict any use of the information to criminally investigate or prosecute any alcohol or drug abuse patient.[facility] CenterIn the event this information is protected by the Federal Confidentiality of Alcohol and Drug Abuse Patient Records regulations: The Federal rules restrict any use of the information to criminally investigate or prosecute any alcohol or drug abuse patient.[facility] CenterIn the event this information is protected by the Federal Confidentiality of Alcohol and Drug Abuse Patient Records regulations: The Federal rules restrict any use of the information to criminally investigate or prosecute any alcohol or drug abuse patient.[facility] CenterIn the event this information is protected by the Federal Confidentiality of Alcohol and Drug Abuse Patient Records regulations: The Federal rules restrict any use of the information to criminally investigate or prosecute any alcohol or drug abuse patient.[facility] CenterIn the event this information is protected by the Federal Confidentiality of Alcohol and Drug Abuse Patient Records regulations: The Federal rules restrict any use of the information to criminally investigate or prosecute any alcohol or drug abuse patient.[facility] CenterIn the event this information is protected by the Federal Confidentiality of Alcohol and Drug Abuse Patient Records regulations: The Federal rules restrict any use of the information to criminally investigate or prosecute any alcohol or drug abuse patient.[facility] CenterIn the event this information is protected by the Federal Confidentiality of Alcohol and Drug Abuse Patient Records regulations: The Federal rules restrict any use of the information to criminally investigate or prosecute any alcohol or drug abuse patient.[facility] CenterIn the event this information is protected by the Federal Confidentiality of Alcohol and Drug Abuse Patient Records regulations: The Federal rules restrict any use of the information to criminally investigate or prosecute any alcohol or drug abuse patient.[facility] CenterIn the event this information is protected by the Federal Confidentiality of Alcohol and Drug Abuse Patient Records regulations: The Federal rules restrict any use of the information to criminally investigate or prosecute any alcohol or drug abuse patient.[facility] CenterIn the event this information is protected by the Federal Confidentiality of Alcohol and Drug Abuse Patient Records regulations: The Federal rules restrict any use of the information to criminally investigate or prosecute any alcohol or drug abuse patient.[facility] CenterIn the event this information is protected by the Federal Confidentiality of Alcohol and Drug Abuse Patient Records regulations: The Federal rules restrict any use of the information to criminally investigate or prosecute any alcohol or drug abuse patient.[facility] CenterIn the event this information is protected by the Federal Confidentiality of Alcohol and Drug Abuse Patient Records regulations: The Federal rules restrict any use of the information to criminally investigate or prosecute any alcohol or drug abuse patient.[facility] CenterIn the event this information is protected by the Federal Confidentiality of Alcohol and Drug Abuse Patient Records regulations: The Federal rules restrict any use of the information to criminally investigate or prosecute any alcohol or drug abuse patient.[facility] CenterIn the event this information is protected by the Federal Confidentiality of Alcohol and Drug Abuse Patient Records regulations: The Federal rules restrict any use of the information to criminally investigate or prosecute any alcohol or drug abuse patient.[facility] CenterIn the event this information is protected by the Federal Confidentiality of Alcohol and Drug Abuse Patient Records regulations: The Federal rules restrict any use of the information to criminally investigate or prosecute any alcohol or drug abuse patient.[facility] CenterIn the event this information is protected by the Federal Confidentiality of Alcohol and Drug Abuse Patient Records regulations: The Federal rules restrict any use of the information to criminally investigate or prosecute any alcohol or drug abuse patient.[facility] CenterIn the event this information is protected by the Federal Confidentiality of Alcohol and Drug Abuse Patient Records regulations: The Federal rules restrict any use of the information to criminally investigate or prosecute any alcohol or drug abuse patient.[facility] CenterIn the event this information is protected by the Federal Confidentiality of Alcohol and Drug Abuse Patient Records regulations: The Federal rules restrict any use of the information to criminally investigate or prosecute any alcohol or drug abuse patient.[facility] CenterIn the event this information is protected by the Federal Confidentiality of Alcohol and Drug Abuse Patient Records regulations: The Federal rules restrict any use of the information to criminally investigate or prosecute any alcohol or drug abuse patient.[facility] CenterIn the event this information is protected by the Federal Confidentiality of Alcohol and Drug Abuse Patient Records regulations: The Federal rules restrict any use of the information to criminally investigate or prosecute any alcohol or drug abuse patient.[facility] CenterIn the event this information is protected by the Federal Confidentiality of Alcohol and Drug Abuse Patient Records regulations: The Federal rules restrict any use of the information to criminally investigate or prosecute any alcohol or drug abuse patient.[facility] CenterIn the event this information is protected by the Federal Confidentiality of Alcohol and Drug Abuse Patient Records regulations: The Federal rules restrict any use of the information to criminally investigate or prosecute any alcohol or drug abuse patient.[facility] CenterIn the event this information is protected by the Federal Confidentiality of Alcohol and Drug Abuse Patient Records regulations: The Federal rules restrict any use of the information to criminally investigate or prosecute any alcohol or drug abuse patient.[facility] CenterIn the event this information is protected by the Federal Confidentiality of Alcohol and Drug Abuse Patient Records regulations: The Federal rules restrict any use of the information to criminally investigate or prosecute any alcohol or drug abuse patient.[facility] CenterIn the event this information is protected by the Federal Confidentiality of Alcohol and Drug Abuse Patient Records regulations: The Federal rules restrict any use of the information to criminally investigate or prosecute any alcohol or drug abuse patient.[facility] CenterIn the event this information is protected by the Federal Confidentiality of Alcohol and Drug Abuse Patient Records regulations: The Federal rules restrict any use of the information to criminally investigate or prosecute any alcohol or drug abuse patient.[facility] CenterIn the event this information is protected by the Federal Confidentiality of Alcohol and Drug Abuse Patient Records regulations: The Federal rules restrict any use of the information to criminally investigate or prosecute any alcohol or drug abuse patient.[facility] CenterIn the event this information is protected by the Federal Confidentiality of Alcohol and Drug Abuse Patient Records regulations: The Federal rules restrict any use of the information to criminally investigate or prosecute any alcohol or drug abuse patient.[facility] CenterIn the event this information is protected by the Federal Confidentiality of Alcohol and Drug Abuse Patient Records regulations: The Federal rules restrict any use of the information to criminally investigate or prosecute any alcohol or drug abuse patient.[facility] CenterIn the event this information is protected by the Federal Confidentiality of Alcohol and Drug Abuse Patient Records regulations: The Federal rules restrict any use of the information to criminally investigate or prosecute any alcohol or drug abuse patient.[facility] CenterIn the event this information is protected by the Federal Confidentiality of Alcohol and Drug Abuse Patient Records regulations: The Federal rules restrict any use of the information to criminally investigate or prosecute any alcohol or drug abuse patient.[facility] CenterIn the event this information is protected by the Federal Confidentiality of Alcohol and Drug Abuse Patient Records regulations: The Federal rules restrict any use of the information to criminally investigate or prosecute any alcohol or drug abuse patient.[facility] CenterIn the event this information is protected by the Federal Confidentiality of Alcohol and Drug Abuse Patient Records regulations: The Federal rules restrict any use of the information to criminally investigate or prosecute any alcohol or drug abuse patient.[facility] CenterIn the event this information is protected by the Federal Confidentiality of Alcohol and Drug Abuse Patient Records regulations: The Federal rules restrict any use of the information to criminally investigate or prosecute any alcohol or drug abuse patient.[facility] CenterIn the event this information is protected by the Federal Confidentiality of Alcohol and Drug Abuse Patient Records regulations: The Federal rules restrict any use of the information to criminally investigate or prosecute any alcohol or drug abuse patient.[facility] CenterIn the event this information is protected by the Federal Confidentiality of Alcohol and Drug Abuse Patient Records regulations: The Federal rules restrict any use of the information to criminally investigate or prosecute any alcohol or drug abuse patient.[facility] CenterIn the event this information is protected by the Federal Confidentiality of Alcohol and Drug Abuse Patient Records regulations: The Federal rules restrict any use of the information to criminally investigate or prosecute any alcohol or drug abuse patient.[facility] CenterIn the event this information is protected by the Federal Confidentiality of Alcohol and Drug Abuse Patient Records regulations: The Federal rules restrict any use of the information to criminally investigate or prosecute any alcohol or drug abuse patient.[facility] CenterIn the event this information is protected by the Federal Confidentiality of Alcohol and Drug Abuse Patient Records regulations: The Federal rules restrict any use of the information to criminally investigate or prosecute any alcohol or drug abuse patient.[facility] Reason for Visit (unrecogniz ed section and content) Reason Comments Radiotherapy On-treatment Visit Reason Comments Prostate Cancer Reason Comments Appointment Reason Comments Received Outside Medical Records Reason Comments Consult Reason Comments Radiology NM Specialty Diagnoses / Procedures Referred By Contac t Referred To Contact MOLECULAR & FUNCTIONAL IMAGING Diagnoses Chronic systolic heart failure (HCC) 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 Procedures NM PET/CT CARDIAC PERF REST/STRESS MYOCRD IMG PET PRFUJ JAW SKINNER STD RST & STRS CNCRNT CT Zahra Pierre MD [address] [id number] Molecular & Functional Imaging [address] [place] [address] Referral ID Status Reason Start Date Expiration Date V isits Requested Visits Authorized [id number] Closed Auto-Generate d Referral 09/06/2022 10/06/2023 1 [...] TMTT Meeting Reason Comments Research F/U IRB 18-600 Empower A ssessment of the CARILLON Mitral Contour System in Treating 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 Mitral Valve Transcatheter Zjvi-im-Dujf Repair (M-AZAEL) w/ [employer] MitraClip Procedure on: 02/18/24 at 10:30 am Procedures TCAT MITRAL VALVE REPAIR INITIAL PROSTHESIS TRANSCATHETER MITRAL VALVE REPAIR PERCUTANEOUS INCLUDE TRANSSEPTAL PUNCTURE WHEN PERFORMED INITIAL PROSTHESIS IV Fluids/Drips, IV Lock [facility] [address] [place] [address] Referral ID Status Reason Start Date Expiration Date Visits Re quested Visits Authorized [id number] 1 1 Reason Comments Amaurosis fugax Reason Comments Patient Update Pre admission Reason Comments TIA Specialty Diagnoses / Procedures Referred By Contac t Referred To Contact Diagnoses TIA Procedures N/A [facility] [address] [place] [address] Referral ID Status Reason Start Date Expiration Date Visits Re quested Visits Authorized [id number] 1 1 Reason Comments Hospital Discharge Specialty Diagnoses / Procedures Referred By Contac t Referred To Contact [facility] VASCULAR [place] Procedures CARDIOVASCULAR MEDICINE OP FOLLOW [place] [address] [place] [address] [facility] [place] [id number] Referral ID Status Reason Start Date Expiration Date Visits Requested Visits Authorized [id number] Ref Not Required PCP Requested Referral 03/26/2024 12/25/2024 1 1 Reason Comments Medication Assistance Program Reason Comments Follow Up Reason Comments Medication Problem Reason Comments Follow Up Reason Onset Date Comments Refill Request 06/10/2024 Specialty Diagnoses / Procedures Referred By Jordon t Referred To Contact Radiation Oncology / RADIATION ONCOLOGY Diagnoses Malignant neoplasm of prostate 1 Month Follow Up SIM/SERGEY/Prostate Procedures SIMULATION KATHRINE IMRT 39 fractions Yung Andrade MD [address] [place] [address] [place] [address] Yung Andrade MD [address] [place] [address] [place] [address] Referral ID Status Reason Start Date Expiration Date Visits Re quested Visits Authorized [id number] Closed 10/12/2021 09/15/2022 [address] Specialty Diagnoses / Procedures Referred By Contac t Referred To Contact CT IMAGING Diagnoses Lung nodules Procedures CT CHEST W IVCON CAT SCAN OF CHEST CONTRAST Victor M Duval MD [address] [place] [address] [place] [address] Referral ID Status Reason Start Date Expiration Date V isits Requested Visits Authorized [id number] Closed Auto-Generate d Referral 09/05/2021 10/05/2022 1 [...] Application 12-lead 48-HR Reason Comments Advice Only Reason Comments Ventricular Tachycardia Care Teams (unrecognized sec tion and content) [place] [employer] Relationship Specialty Start Date End Date Samm Thompson MD PCP - General Family Practice [facility] [address] [place] [address] Primary Staff Physician Cardiology 12/02/18 [place] [employer] Relationship Specialty Start Date End Date Samm Thompson MD PCP - General Family Practice 05/30/12 [facility] [address] [place] [address] Primary Staff Physician Cardiology 12/02/18 [place] [employer] Relationship Specialty Start Date End Date Samm Thompson MD PCP - General Family Practice 05/30/12 [facility] [address] [place] [address] Primary Staff Physician Cardiology 12/02/18 [place] [employer] Relationship Specialty Start Date End Date Samm Thompson MD PCP - General Family Practice 05/30/12 [facility] Tom Vagesh [address] [place] [address] Primary Staff Physician Cardiology 12/02/18 [place] [employer] Relationship Specialty Start Date End Date Samm Thompson MD PCP - General Family Practice 05/30/12 Tom Gonzalez Vagesh [address] [place] [address] Primary Staff Physician Cardiology 12/02/18 [place] Actor Relationship Specialty Start Date End Date Samm Thompson MD PCP - General Family Practice 05/30/12 Tom Gonzalez Vagesh [address] [place] [address] Primary Staff Physician Cardiology 12/02/18 [place] Actor Relationship Specialty Start Date End Date Samm Thompson MD PCP - General Family Medicine 05/30/12 [facility] [address] [place] [address] Primary Staff Physician Cardiology 12/02/18 [place] Actor Relationship Specialty Start Date End Date Samm Thompson MD PCP - General Family Medicine 05/30/12 Tom Gonzalez Vagesh [address] [place] [address] Primary Staff Physician Cardiology 12/02/18 [place] Actor Relationship Specialty Start Date End Date Samm Thompson MD PCP - General Family Medicine 05/30/12 [facility], Tom Vagesh [address] [place] [address] Primary Staff Physician Cardiology 12/02/18 [place] Actor Relationship Specialty Start Date End Date Samm Thompson MD PCP - General Family Medicine 05/30/12 [facility], Tom Vagesh [address] [place] [address] Primary Staff Physician Cardiology 12/02/18 [place] Actor Relationship Specialty Start Date End Date Samm Thompson MD PCP - General Family Medicine 05/30/12 [facility], Tom Vagesh [address] [place] [address] Primary Staff Physician Cardiology 12/02/18 [place] Actor Relationship Specialty Start Date End Date Samm Thompson MD PCP - General Family Medicine 05/30/12 [facility], Tom Vagesh [address] [place] [address] Primary Staff Physician Cardiology 12/02/18 [place] [employer] Relationship Specialty Start Date End Date Samm Thompson MD PCP - General Family Medicine 05/30/12 [facility], Tom Vagesh [address] [place] [address] Primary Staff Physician Cardiology 12/02/18 [place] Actor Relationship Specialty Start Date End Date Samm Thompson MD PCP - General Family Medicine 05/30/12 [place], Tom Vagesh [address] [place] [address] Primary Staff Physician Cardiology 12/02/18 [place] Actor Relationship Specialty Start Date End Date Samm Thompson MD PCP - General Family Medicine 05/30/12 [place], Tom Vagesh [address] [place] [address] Primary Staff Physician Cardiology 12/02/18 [place] Actor Relationship Specialty Start Date End Date Samm Thompson MD PCP - General Family Medicine 05/30/12 Tom Gonzalez Vagesh [address] [place] [address] Primary Staff Physician Cardiology 12/02/18 [place] [employer] Relationship Specialty Start Date End Date Samm Thompson MD PCP - General Family Medicine 05/30/12 Tom Gonzalez Vagesh [address] [place] [address] Primary Staff Physician Cardiology 12/02/18 [place] Actor Relationship Specialty Start Date End Date Samm Thompson MD PCP - General Family Medicine 05/30/12 Tom Gonzalez Vagmaria r [address] [place] [address] Primary Staff Physician Cardiology 12/02/18 [place] Relationship Specialty Start Date End Date Samm Thompson MD PCP - General Family Medicine 05/30/12 Tom Gonzalez [address] [place] [address] Primary Staff Physician Cardiology 12/02/18 [place] Actor Relationship Specialty Start Date End Date Samm Thompson MD PCP - General Family Medicine 05/30/12 oTm Gonzalez [address] [place] [address] Primary Staff Physician Cardiology 12/02/18 Zahra Pierre MD [address] [place] [address] Primary Staff Physician Cardiology 04/26/23 [place] Actor Relationship Specialty Start Date End Date Samm Thompson MD PCP - General Family Medicine 05/30/12 Tom Gonzalez [address] [place] [address] Primary Staff Physician Cardiology 12/02/18 Zahra Pierre MD [address] [place] [address] Primary Staff Physician Cardiology 04/26/23 [place] Actor Relationship Specialty Start Date End Date Samm Thompson MD PCP - General Family Medicine 05/30/12 Tom Gonzalez [address] [place] [address] Primary Staff Physician Cardiology 12/02/18 Zahra Pierre MD [address] [place] [address] Primary Staff Physician Cardiology 04/26/23 [place] Actor Relationship Specialty Start Date End Date Samm Thompson MD PCP - General Family Medicine 05/30/12 Tom Gonzalez [address] [place] [address] Primary Staff Physician Cardiology 12/02/18 Zahra Pierre MD [address] [place] [address] Primary Staff Physician Cardiology 04/26/23 [place] Actor Relationship Specialty Start Date End Date Samm Thompson MD PCP - General Family Medicine 05/30/12 [facility] [address] [place] [address] Primary Staff Physician Cardiology 12/02/18 Zahra Pierre MD [address] [place] [address] Primary Staff Physician Cardiology 04/26/23 Virgil Carrillo MD [address] [place] [address] Primary Staff Physician Cardiology 10/29/23 [place] Actor Relationship Specialty Start Date End Date Samm Thompson MD PCP - General Family Medicine 05/30/12 Tom Gonzalez [address] [place] [address] Primary Staff Physician Cardiology 12/02/18 Zahra Pierre MD [address] [place] [address] Primary Staff Physician Cardiology 04/26/23 Virgil Carrillo MD [address] [place] [address] Primary Staff Physician Cardiology 10/29/23 [place] Actor Relationship Specialty Start Date End Date Samm Thompson MD PCP - General Family Medicine 05/30/12 Tom Gonzalez [address] [place] [address] Primary Staff Physician Cardiology 12/02/18 Zahra Pierre MD [address] [place] [address] Primary Staff Physician Cardiology 04/26/23 Virgil Carrillo MD [address] [place] [address] Primary Staff Physician Cardiology 10/29/23 [place] Actor Relationship Specialty Start Date End Date Samm Thompson MD PCP - General Family Medicine 05/30/12 Tom Gonzalez [address] [place] [place] [address] Primary Staff Physician Cardiology 12/02/18 Zahra Pierre MD [address] [place] [address] Primary Staff Physician Cardiology 04/26/23 Virgil Carrillo MD [address] [place] [address] Primary Staff Physician Cardiology 10/29/23 [place] Actor Relationship Specialty Start Date End Date Samm Thompson MD PCP - General Family Medicine 05/30/12 [facility] [address] [place] [address] Primary Staff Physician Cardiology 12/02/18 Zahra Pierre MD [address] [place] [address] Primary Staff Physician Cardiology 04/26/23 Virgil Carrillo MD [address] [place] [address] Primary Staff Physician Cardiology 10/29/23 [place] Actor Relationship Specialty Start Date End Date Samm Thompson MD PCP - General Family Medicine 05/30/12 [facility] [address] [facility] [place] [address] Primary Staff Physician Cardiology 12/02/18 Zahra Pierre MD [address] [place] [address] Primary Staff Physician Cardiology 04/26/23 Virgil Carrillo MD [address] [place] [address] Primary Staff Physician Cardiology 10/29/23 [place] Actor Relationship Specialty Start Date End Date Samm Thompson MD PCP - General Family Medicine 05/30/12 Tom Gonzalez [address] [place] [address] Primary Staff Physician Cardiology 12/02/18 Zahra Pierre MD [address] [place] [address] Primary Staff Physician Cardiology 04/26/23 Virgil Carrillo MD [address] [place], [place] [address] Primary Staff Physician Cardiology 10/29/23 Jethro Brady MD [address] [place] [address] Primary Staff Physician Cardiology 12/26/23 [place] Actor Relationship Specialty Start Date End Date Samm Thompson MD PCP - General Family Medicine 05/30/12 Tom Gonzalez [address] [place] [address] Primary Staff Physician Cardiology 12/02/18 Zahra Pierre MD [address] [place] [address] Primary Staff Physician Cardiology 04/26/23 Vigril Carrillo MD [address] [place] [address] Primary Staff Physician Cardiology 10/29/23 Jethro Brady MD [address] [place] [address] Primary Staff Physician Cardiology 12/26/23 [place] Actor Relationship Specialty Start Date End Date Samm Thompson MD PCP - General Family Medicine 05/30/12 Tom Gonzalez [address] [place] [address] Primary Staff Physician Cardiology 12/02/18 Zahra Pierre MD [address] [place] [address] Primary Staff Physician Cardiology 04/26/23 Virgil Carrillo MD [address] [place], [place] [address] Primary Staff Physician Cardiology 10/29/23 Jethro Brady MD [address] [place] [address] Primary Staff Physician Cardiology 12/26/23 [place] Relationship Specialty Start Date End Date Samm Thompson MD PCP - General Family Medicine 05/30/12 Tom Gonzalez [address] [facility] [place] [address] Primary Staff Physician Cardiology 12/02/18 Zahra Pierre MD [address] [place], [place] [address] Primary Staff Physician Cardiology 04/26/23 Virgil Carrillo MD [address] [place], [place] 108[address] Primary Staff Physician Cardiology 10/29/23 Jethro Brady MD [address] [place] [address] Primary Staff Physician Cardiology 12/26/23 [place] Actor Relationship Specialty Start Date End Date Samm Thompson MD PCP - General Family Medicine 05/30/12 Tom Gonzalez [address] [facility] [place] [address] Primary Staff Physician Cardiology 12/02/18 Zahra Pierre MD [address] [place] [address] Primary Staff Physician Cardiology 04/26/23 Virgil Carrillo MD [address] [place] [address] Primary Staff Physician Cardiology 10/29/23 Jethro Brady MD [address] [place] [address] Primary Staff Physician Cardiology 12/26/23 Dorcas Fernandes MD [address] [place] [address] Primary Staff Physician Cardiology 01/10/24 [place] Actor Relationship Specialty Start Date End Date Samm Thompson MD PCP - General Family Medicine 05/30/12 Tom Gonzalez [address] [facility] [place] [address] Primary Staff Physician Cardiology 12/02/18 Zahra Pierre MD [address] [place] [address] Primary Staff Physician Cardiology 04/26/23 Virgil Carrillo MD [address] [place], [place] 6142595 Primary Staff Physician Cardiology 10/29/23 Jethro Brady MD [address] [place] [address] Primary Staff Physician Cardiology 12/26/23 Dorcas Fernandes MD [address] [place] [id number] Primary Staff Physician Cardiology 01/10/24 [place] Actor Relationship Specialty Start Date End Date Samm Thompson MD PCP - General Family Medicine 05/30/12 Tom Gonzalez [address] [place] [address] Primary Staff Physician Cardiology 12/02/18 Zahra Pierre MD [facility] [place] [id number] Primary Staff Physician Cardiology 04/26/23 Virgil Carrillo MD [address] [place], [place] 7977995 Primary Staff Physician Cardiology 10/29/23 Jethro Brady MD [address] [place], [place] 3873995 Primary Staff Physician Cardiology 12/26/23 Dorcas Fernandes MD [address] [place] [address] Primary Staff Physician Cardiology 01/10/24 [place] Actor Relationship Specialty Start Date End Date Samm Thompson MD PCP - General Family Medicine 05/30/12 Tom Gonzalez [address] [facility] [place] [address] Primary Staff Physician Cardiology 12/02/18 Zahra Pierre MD [address] [place] [address] Primary Staff Physician Cardiology 04/26/23 Virgil Carrillo MD [address] [place] [address] Primary Staff Physician Cardiology 10/29/23 Jethro Brady MD [address] [place] [address] Primary Staff Physician Cardiology 12/26/23 Dorcas Fernandes MD [address] [place] [address] Primary Staff Physician Cardiology 01/10/24 [place] Actor Relationship Specialty Start Date End Date Samm Thompson MD PCP - General Family Medicine 05/30/12 Tom Gonzalez [address] [facility] [place] [address] Primary Staff Physician Cardiology 12/02/18 Zahra Pierre MD [address] [place] [address] Primary Staff Physician Cardiology 04/26/23 Virgil Carrillo MD [address] [place], [place] 522[address] Primary Staff Physician Cardiology 10/29/23 Jethro Brady MD [address] [place] [address] Primary Staff Physician Cardiology 12/26/23 Dorcas Fernandes MD [facility] [place] [address] Primary Staff Physician Cardiology 01/10/24 [place] Actor Relationship Specialty Start Date End Date Samm Thompson MD PCP - General Family Medicine 05/30/12 Tom Gonzalez [address] [place] [address] Primary Staff Physician Cardiology 12/02/18 Zahra Pierre MD [facility] [place] [id number] Primary Staff Physician Cardiology 04/26/23 Virgil Carrillo MD [address] [place], [place] 03[address]5 Primary Staff Physician Cardiology 10/29/23 Jethro Brady MD [address] [place], [place] 9495695 Primary Staff Physician Cardiology 12/26/23 Dorcas Fernandes MD [address] [place] [address] Primary Staff Physician Cardiology 01/10/24 [place] Actor Relationship Specialty Start Date End Date Samm Thompson MD PCP - General Family Medicine 05/30/12 Tom Gonzalez [address] [place] [address] Primary Staff Physician Cardiology 12/02/18 Zahra Pierre MD [address] [place] [address] Primary Staff Physician Cardiology 04/26/23 Virgil Carrillo MD [address] [place] [address] Primary Staff Physician Cardiology 10/29/23 Jethro Brady MD [address] [place] [address] Primary Staff Physician Cardiology 12/26/23 Dorcas Fernandes MD [address] [place] [address] Primary Staff Physician Cardiology 01/10/24 [place] Actor Relationship Specialty Start Date End Date Samm Thompson MD PCP - General Family Medicine 05/30/12 Tom Gonzalez [address] [place], [place] 37[address] Primary Staff Physician Cardiology 12/02/18 Zahra Pierre MD [address] [place] [address] Primary Staff Physician Cardiology 04/26/23 Virgil Carrillo MD [address] [place] [place], [place] 7043495 Primary Staff Physician Cardiology 10/29/23 Jethro Brady MD [address] [place], [place] 7227995 Primary Staff Physician Cardiology 12/26/23 Dorcas Fernandes MD [address] [place] [address] Primary Staff Physician Cardiology 01/10/24 [place] Actor Relationship Specialty Start Date End Date Samm Thompson MD PCP - General Family Medicine 05/30/12 Tom Gonzalez [address] [place] [address] Primary Staff Physician Cardiology 12/02/18 Zahra Pierre MD [facility] [place] [address] Primary Staff Physician Cardiology 04/26/23 Virgil Carrillo MD [address] [place] [address] Primary Staff Physician Cardiology 10/29/23 Jethro Brady MD [address] [place], [place] 9003595 Primary Staff Physician Cardiology 12/26/23 Dorcas Fernandes MD [address] [place] [address] Primary Staff Physician Cardiology 01/10/24 [place] Actor Relationship Specialty Start Date End Date Samm Thompson MD PCP - General Family Medicine 05/30/12 Tom Gonzalez [address] [place] [address] Primary Staff Physician Cardiology 12/02/18 Zahra Pierre MD [address] [place] [address] Primary Staff Physician Cardiology 04/26/23 Virgil Carrillo MD [address] [place] [address] Primary Staff Physician Cardiology 10/29/23 Jethro Brady MD [address] [place] [address] Primary Staff Physician Cardiology 12/26/23 Dorcas Fernaneds MD [address] [place] [address] Primary Staff Physician Cardiology 01/10/24 [place] Actor Relationship Specialty Start Date End Date Samm Thompson MD PCP - General Family Medicine 05/30/12 Tom Gonzalez [address] [place], [place] [address] Primary Staff Physician Cardiology 12/02/18 Zahra Pierre MD [address] [place] [address] Primary Staff Physician Cardiology 04/26/23 Virgil Carrillo MD [address] [place] [address] Primary Staff Physician Cardiology 10/29/23 Jethro Brady MD [address] [place] [place], [place] 7397[address] Primary Staff Physician Cardiology 12/26/23 Dorcas Fernandes MD [facility] [place] [address] Primary Staff Physician Cardiology 01/10/24 [place] Actor Relationship Specialty Start Date End Date Samm Thompson MD PCP - General Family Medicine 05/30/12 Tom Gonzalez [address] [place], [place] [address] [address] Primary Staff Physician Cardiology 12/02/18 Zahra Pierre MD [facility] [place] [id number] Primary Staff Physician Cardiology 04/26/23 Virgil Carrillo MD [address] [place] [address] Primary Staff Physician Cardiology 10/29/23 Jethro Brady MD [address] [place], [place] 9037295 Primary Staff Physician Cardiology 12/26/23 Dorcas Fernandes MD [address] [place] [address] Primary Staff Physician Cardiology 01/10/24 [place] Actor Relationship Specialty Start Date End Date Samm Thompson MD PCP - General Family Medicine 05/30/12 Tom Gonzalez [address] [place] [address] Primary Staff Physician Cardiology 12/02/18 Zahra Pierre MD [address] [place] [address] Primary Staff Physician Cardiology 04/26/23 Virgil Carrillo MD [address] [place] [address] Primary Staff Physician Cardiology 10/29/23 Jethro Brady MD [address] [place] [address] Primary Staff Physician Cardiology 12/26/23 Dorcas Fernandes MD [address] [place] [address] Primary Staff Physician Cardiology 01/10/24 [place] Actor Relationship Specialty Start Date End Date Samm Thompson MD PCP - General Family Medicine 05/30/12 Tom Gonzalez [address] [place], [place] [address] Primary Staff Physician Cardiology 12/02/18 Zahra Pierre MD [address] [place] [address] Primary Staff Physician Cardiology 04/26/23 Virgil Carrillo MD [address] [place] [address] Primary Staff Physician Cardiology 10/29/23 Jethro Brady MD [address] [place] [address] Primary Staff Physician Cardiology 12/26/23 Dorcas Fernandes MD [facility] [place] [address] Primary Staff Physician Cardiology 01/10/24 [place] Actor Relationship Specialty Start Date End Date Samm Thompson MD PCP - General Family Medicine 05/30/12 Tom Gonzalez [address] [place] [address] Primary Staff Physician Cardiology 12/02/18 Zahra Pierre MD [facility] [place] [address] Primary Staff Physician Cardiology 04/26/23 Virgil Carrillo MD [address] [place], [place] 800[address]95 Primary Staff Physician Cardiology 10/29/23 Jethro Brady MD [address] [place], [place] 5736695 Primary Staff Physician Cardiology 12/26/23 Dorcas Fernandes MD [address] [place] [address] Primary Staff Physician Cardiology 01/10/24 [place] Actor Relationship Specialty Start Date End Date Samm Thompson MD PCP - General Family Medicine 05/30/12 Tom Gonzalez [address] [place] [address] Primary Staff Physician Cardiology 12/02/18 Zahra Pierre MD [address] [place] [address] Primary Staff Physician Cardiology 04/26/23 Virgil Carrillo MD [address] [place] [address] Primary Staff Physician Cardiology 10/29/23 Jethro Brady MD [address] [place] [address] Primary Staff Physician Cardiology 12/26/23 Dorcas Fernandes MD [address] [place] [address] Primary Staff Physician Cardiology 01/10/24 [place] Actor Relationship Specialty Start Date End Date Samm Thompson MD PCP - General Family Medicine 05/30/12 Tom Gonzalez [address] [place] [address] Primary Staff Physician Cardiology 12/02/18 Zahra Pierre MD [address] [place] [address] Primary Staff Physician Cardiology 04/26/23 Virgil Carrillo MD [address] [place] [address] Primary Staff Physician Cardiology 10/29/23 Jethro Brady MD [address] [facility] [place] [address] Primary Staff Physician Cardiology 12/26/23 Dorcas Fernandes MD [facility] [place] [address] Primary Staff Physician Cardiology 01/10/24 [place] Actor Relationship Specialty Start Date End Date Samm Thompson MD PCP - General Family Medicine 05/30/12 Tom Gonzalez [address] [place], [place] [address] [address] Primary Staff Physician Cardiology 12/02/18 Zahra Pierre MD [facility] [place] [id number] Primary Staff Physician Cardiology 04/26/23 Virgil Carrillo MD [address] [place], [place] 7647795 Primary Staff Physician Cardiology 10/29/23 Jethro Brady MD [address] [place], [place] 0226795 Primary Staff Physician Cardiology 12/26/23 Dorcas Fernandes MD [address] [place] [address] Primary Staff Physician Cardiology 01/10/24 [place] Actor Relationship Specialty Start Date End Date Samm Thompson MD PCP - General Family Medicine 05/30/12 Tom Gonzalze [address] [place] [address] Primary Staff Physician Cardiology 12/02/18 Zahra Pierre MD [address] [place] [address] Primary Staff Physician Cardiology 04/26/23 Virgil Carrillo MD [address] [place] [address] Primary Staff Physician Cardiology 10/29/23 Jethro Brady MD [address] [place] [address] Primary Staff Physician Cardiology 12/26/23 Carmela Fernandes MD [address] [place] [address] Primary Staff Physician Cardiology 01/10/24 [place] Actor Relationship Specialty Start Date End Date Samm Thompson MD PCP - General Family Medicine 05/30/12 Tom Gonzalez [address] [facility] [place] [address] Primary Staff Physician Cardiology 12/02/18 Zahra Pierre MD [address] [place] [id number] Primary Staff Physician Cardiology 04/26/23 Virgil Carrillo MD [address] [place] [id number] Primary Staff Physician Cardiology 10/29/23 Jethro Brady MD [address] [place] [phone] Primary Staff Physician Cardiology 12/26/23 Carmela Fernandes MD [facility] [place] [id number] Primary Staff Physician Cardiology 01/10/24 [place] Actor Relationship Specialty Start Date End Date Samm Thompson MD PCP - General Family Medicine 05/30/12 Tom Gonzalez [address] [place], [place] [address] [address] Primary Staff Physician Cardiology 12/02/18 Zahra Pierre MD [address] [place] [phone] Primary Staff Physician Cardiology 04/26/23 Virgil Carrillo MD [address] [place] [address] Primary Staff Physician Cardiology 10/29/23 Jethro Brady MD [address] [facility] [place] [id number] Primary Staff Physician Cardiology 12/26/23 Carmela Fernandes MD [facility] [place] [address] Primary Staff Physician Cardiology 01/10/24 [place] Actor Relationship Specialty Start Date End Date Samm Thompson MD PCP - General Family Medicine 05/30/12 Tom Gonzalez [address] [place] [address] Primary Staff Physician Cardiology 12/02/18 Zahra Pierre MD [address] [place] [address] Primary Staff Physician Cardiology 04/26/23 Virgil Carrillo MD [address] [place] [address] Primary Staff Physician Cardiology 10/29/23 Jethro Brady MD [address] [place] [address] Primary Staff Physician Cardiology 12/26/23 Carmela Fernandes MD [address] [place] [address] Primary Staff Physician Cardiology 01/10/24 [place] Actor Relationship Specialty Start Date End Date Samm Thompson MD PCP - General Family Medicine 05/30/12 Tom Gonzalez [address] [place] [address] Primary Staff Physician Cardiology 12/02/18 [place] Actor Relationship Specialty Start Date End Date Samm Thompson MD PCP - General Family Medicine 05/30/12 Tom Gonzalez [address] [place] [address] Primary Staff Physician Cardiology 12/02/18 [place] Actor Relationship Specialty Start Date End Date Samm Thompson MD PCP - General Family Medicine 05/30/12 Tom Gonzalez [address] [facility] [address] Primary Staff Physician Cardiology 12/02/18 Zahra Pierre MD [address] [place] [address] Primary Staff Physician Cardiology 04/26/23 Virgil Carrillo MD [address] [place] [address] Primary Staff Physician Cardiology 10/29/23 Jethro Brady MD [address] [place] [address] Primary Staff Physician Cardiology 12/26/23 Carmela Fernandes MD [address] [place] [address] Primary Staff Physician Cardiology 01/10/24 [place] Actor Relationship Specialty Start Date End Date Samm Thompson MD PCP - General Family Medicine 05/30/12 Tom Gonzalez [address] [place] [address] Primary Staff Physician Cardiology 12/02/18 Zahra Pierre MD [address] [place] [address] Primary Staff Physician Cardiology 04/26/23 Virgil Carrillo MD [address] [place], [place] 13737[address] Primary Staff Physician Cardiology 10/29/23 Jethro Brady MD [address] [place] [address] Primary Staff Physician Cardiology 12/26/23 Carmela Fernandes MD [address] [place] [address] Primary Staff Physician Cardiology 01/10/24 [place] Actor Relationship Specialty Start Date End Date Samm Thompson MD PCP - General Family Medicine 05/30/12 Tom Gonzalez [address] [place] [address] Primary Staff Physician Cardiology 12/02/18 Zahra Pierre MD [facility] [place] [address] Primary Staff Physician Cardiology 04/26/23 Virgil Carrillo MD [address] [place] [address] Primary Staff Physician Cardiology 10/29/23 Jethro Brady MD [address] [place] [place], [place] [address] Primary Staff Physician Cardiology 12/26/23 Carmela Fernandes MD [address] [place] [address] Primary Staff Physician Cardiology 01/10/24 [place] Actor Relationship Specialty Start Date End Date Samm Thompson MD PCP - General Family Medicine 05/30/12 Tom Gonzalez [address] [place] [address] Primary Staff Physician Cardiology 12/02/18 Zahra Pierre MD [address] [place] [address] Primary Staff Physician Cardiology 04/26/23 Virgil Carrillo MD [address] [place] [address] Primary Staff Physician Cardiology 10/29/23 Jethro Brady MD [address] [place] [address] Primary Staff Physician Cardiology 12/26/23 Carmela Fernandes MD [address] [place] [address] Primary Staff Physician Cardiology 01/10/24 [place] Actor Relationship Specialty Start Date End Date Samm Thompson MD PCP - General Family Medicine 05/30/12 Tom Gonzalez [address] [place] [address] Primary Staff Physician Cardiology 12/02/18 Zahra Pierre MD [address] [place] [address] Primary Staff Physician Cardiology 04/26/23 Virgil Carrillo MD [address] [place] [address] Primary Staff Physician Cardiology 10/29/23 Jethro Brady MD [address] [facility] [place] [address] Primary Staff Physician Cardiology 12/26/23 Carmela Fernandes MD [address] [place] [address] Primary Staff Physician Cardiology 01/10/24 [place] Actor Relationship Specialty Start Date End Date Samm Thompson MD PCP - General Family Medicine 05/30/12 Tom Gonzalez [address] [place], [place] [address] [address] Primary Staff Physician Cardiology 12/02/18 Zahra Pierre MD [address] [place] [address] Primary Staff Physician Cardiology 04/26/23 Virgil Carrillo MD [address] [place] [address] Primary Staff Physician Cardiology 10/29/23 Jethro Brady MD [address] [place], [place] 18100[address] Primary Staff Physician Cardiology 12/26/23 Carmela Fernandes MD [address] [place] [address] Primary Staff Physician Cardiology 01/10/24 [place] Actor Relationship Specialty Start Date End Date Samm Thompson MD PCP - General Family Medicine 05/30/12 Tom Gonzalez [address] [place] [address] Primary Staff Physician Cardiology 12/02/18 Zahra Pierre MD [address] [place] [address] Primary Staff Physician Cardiology 04/26/23 Virgil Carrillo MD [address] [place] [address] Primary Staff Physician Cardiology 10/29/23 Jethro Brady MD [address] [place] [address] Primary Staff Physician Cardiology 12/26/23 Carmela Fernandes MD [address] [place] [address] Primary Staff Physician Cardiology 01/10/24 [place] Actor Relationship Specialty Start Date End Date Samm Thompson MD PCP - General Family Medicine 05/30/12 Tom Gonzalez [address] [place] [address] Primary Staff Physician Cardiology 12/02/18 Zahra Pierre MD [address] [id number] Primary Staff Physician Cardiology 04/26/23 Virgil Carrillo MD [address] [place] [id number] Primary Staff Physician Cardiology 10/29/23 Jethro Brady MD [address] [id number] Primary Staff Physician Cardiology 12/26/23 Carmela Fernandes MD [address] [id number] Primary Staff Physician Cardiology 01/10/24 [place] Actor Relationship Specialty Start Date End Date Samm Thompson MD PCP - General Family Medicine 05/30/12 Tom Gonzalez [address] [place] [address] Primary Staff Physician Cardiology 12/02/18 Zahra Pierre MD [address] [place] [address] Primary Staff Physician Cardiology 04/26/23 Virgil Carrillo MD [address] [place] [address] Primary Staff Physician Cardiology 10/29/23 Jethro Brayd MD [address] [facility] [place] [address] Primary Staff Physician Cardiology 12/26/23 Carmela Fernandes MD [address] [place] [address] Primary Staff Physician Cardiology 01/10/24 [place] Actor Relationship Specialty Start Date End Date Samm Thompson MD PCP - General Family Medicine 05/30/12 Tom Gonzalez [address] [place] [address] Primary Staff Physician Cardiology 12/02/18 Zahra Pierre MD [address] [place] [address] Primary Staff Physician Cardiology 04/26/23 Virgil Carrillo MD [address] [place] [address] Primary Staff Physician Cardiology 10/29/23 Jethro Brady MD [address] [place] [address] Primary Staff Physician Cardiology 12/26/23 Carmela Fernandes MD [address] [place] [address] Primary Staff Physician Cardiology 01/10/24 [place] Actor Relationship Specialty Start Date End Date Samm Thompson MD PCP - General Family Medicine 05/30/12 Tom Gonzalez [address] [place] [address] Primary Staff Physician Cardiology 12/02/18 Zahra Pierre MD [address] [place] [address] Primary Staff Physician Cardiology 04/26/23 Virgil Carrillo MD [address] [place] [address] Primary Staff Physician Cardiology 10/29/23 Jethro Brady MD [address] [place] [address] Primary Staff Physician Cardiology 12/26/23 Carmela Fernandes MD [address] [place], [place] [phone] Primary Staff Physician Cardiology 01/10/24 [place] Actor Relationship Specialty Start Date End Date Samm Thompson MD PCP - General Family Medicine 05/30/12 Tom Gonzalez [facility] [place] [address] Primary Staff Physician Cardiology 12/02/18 Zahra Pierre MD [address] [place] [address] Primary Staff Physician Cardiology 04/26/23 Virgil Carrillo MD [address] [place] [id number] Primary Staff Physician Cardiology 10/29/23 Jethro Brady MD [address] [place] [address] Primary Staff Physician Cardiology 12/26/23 Carmela Fernandes MD [address] [place] [address] Primary Staff Physician Cardiology 01/10/24 [place] Actor Relationship Specialty Start Date End Date Samm Thompson MD PCP - General Family Medicine 05/30/12 Tom Gonzalez [address] [place], [place] [id number] Primary Staff Physician Cardiology 12/02/18 Zahra Pierre MD [address] [place] [address] Primary Staff Physician Cardiology 04/26/23 Virgil Carrillo MD [address] [place] [address] Primary Staff Physician Cardiology 10/29/23 Jethro Brady MD [address] [place] [address] Primary Staff Physician Cardiology 12/26/23 Carmela Fernandes MD [address] [place] [address] Primary Staff Physician Cardiology 01/10/24 [place] Actor Relationship Specialty Start Date End Date Samm Thompson MD PCP - General Family Medicine 05/30/12 Tom Gonzalez [address] [facility] [place] [address] Primary Staff Physician Cardiology 12/02/18 Zahra Pierre MD [address] [place] [address] Primary Staff Physician Cardiology 04/26/23 Virgil Carrillo MD [address] [place] [address] Primary Staff Physician Cardiology 10/29/23 Jethro Brady MD [address] [place] [address] Primary Staff Physician Cardiology 12/26/23 Carmela Fernandes MD [address] [place] [address] Primary Staff Physician Cardiology 01/10/24 [place] Actor Relationship Specialty Start Date End Date Samm Thompson MD PCP - General Family Medicine 05/30/12 Tom Gonzalez [facility] [place] [address] Primary Staff Physician Cardiology 12/02/18 Zahra Pierre MD [address] [place] [address] Primary Staff Physician Cardiology 04/26/23 Virgil Carrillo MD [address] [place] [address] Primary Staff Physician Cardiology 10/29/23 Jethro Brady MD [address] [place] [address] Primary Staff Physician Cardiology 12/26/23 Carmela Fernandes MD [address] [place] [address] Primary Staff Physician Cardiology 01/10/24 [place] Actor Relationship Specialty Start Date End Date Samm Thompson MD PCP - General Family Medicine 05/30/12 Tom Gonzalez [address] [place] [address] Primary Staff Physician Cardiology 12/02/18 Zahra Pierre MD [address] [place] [address] Primary Staff Physician Cardiology 04/26/23 Virgil Carrillo MD [facility] [place] [phone] Primary Staff Physician Cardiology 10/29/23 Jethro Brady MD [facility] [place] [phone] Primary Staff Physician Cardiology 12/26/23 Carmela Fernandes MD [facility] [place] [phone] Primary Staff Physician Cardiology 01/10/24 [place] Actor Relationship Specialty Start Date End Date Samm Thompson MD [address] [place] [address] PCP - General Family Medicine 06/29/19 [place] Actor Relationship Specialty Start Date End Date Samm Thompson MD [address] [id number] PCP - General Family Medicine 06/29/19 [place] Actor Relationship Specialty Start Date End Date Samm Thompson MD [address] [id number] PCP - General Family Medicine 06/29/19 [place] Actor Relationship Specialty Start Date End Date Samm Thompson MD [address] [place], [place] [id number] PCP - General Family Medicine 06/29/19 [place] Actor Relationship Specialty Start Date End Date Samm Thompson MD [address] [place], [place] [id number] PCP - General Family Medicine 06/29/19 [place] Actor Relationship Specialty Start Date End Date Samm Thompson MD [address] [place], [place] [phone] PCP - General Family Medicine 06/29/19 [place] Actor Relationship Specialty Start Date End Date Samm Thompson MD [address] [place], [place] [id number] PCP - General Family Medicine 06/29/19 [place] Actor Relationship Specialty Start Date End Date Samm Thompson MD [address] [place], [place] [phone] PCP - General Family Medicine 06/29/19 [place] Actor Relationship Specialty Start Date End Date Samm Thompson MD [address] [place], [place] [phone] PCP - General Family Medicine 06/29/19 [place] Actor Relationship Specialty [place] [address] [place], [place] [phone] PCP - General Family Medicine 06/29/19 [place] Actor Relationship Specialty [place] [address] [place], [place] [phone] PCP - General Family Medicine 06/29/19 [place] Actor Relationship Specialty Start Date End Date Samm Thompson MD [address] [place], [place] [phone] PCP - General Family Medicine 02/26/24 [place] Actor Relationship Specialty Start Date End Date Samm Thompson MD [address] [place], [place] [phone] PCP - General Family Medicine 02/26/24 [place] Actor Relationship Specialty Start Date End Date Samm Thompson MD [address] [place], [place] [phone] PCP - General Family Medicine 06/29/19 [place] Actor Relationship Specialty Start Date End Date Samm Thompson MD [address] [place], [place] [phone] PCP - General Family Medicine 02/26/24 [place] Actor Relationship Specialty Start Date End Date Samm Thompson MD [address] [place], [place] [phone] PCP - General Family Medicine 02/26/24 [place] Actor Relationship Specialty Start Date End Date Samm Thompson MD [address] [place], [place] [phone] PCP - General Family Medicine 02/26/24 [place] Actor Relationship Specialty Start Date End Date Samm Thompson MD [address] [place], [place] [phone] PCP - General Family Medicine 02/26/24 [place] Actor Relationship Specialty Start Date End Date Samm Thompson MD [address] [place], [place] [phone] PCP - General Family [facility] 02/26/24 [place] Actor Relationship Specialty Start Date End Date Samm Thompson MD [address] [place] [address] PCP - [facility] 02/26/24 [place] Actor Relationship Specialty Start Date End Date Samm Thompson MD [address] [place] [address] PCP - [facility] 02/26/24 [place] Actor Relationship Specialty Start Date End Date Samm Thompson MD PCP - [facility] 02/26/24 [place] Actor Relationship Specialty Start Date End Date Samm Thompson MD PCP - General [facility] 02/26/24 [place] Actor Relationship Specialty Start Date End Date Samm Thompson MD PCP - General Family Medicine 02/26/24 [place] Actor Relationship Specialty Start Date End Date Samm Thompson MD PCP - General Family Medicine 02/26/24 [place] Actor Relationship Specialty Start Date End Date Samm Thompson MD PCP - General Family Medicine 02/26/24 FOR RECORDS PERTAINING TO PATIENTS WHO ARE [...] BE BASED ON THE PRIMARY CLINICAL RECORDS. [facility]. provides no warranty or guarantee of the accuracy or completeness of information in this document.
--- NOTE | 2024-11-21 09:41 | ECG_ITS ---
[facility] Test Date: 2024-11-21 Pat Name: LANDEN ROTH Department: Room: - Gender: Male Office Professional: : 1940 Requested By: [id number] Order Number: [id number] Reading MD: MALAIKA FAUST M.D. Measurements Intervals [place] Rate: 77 P: 90 NV: 142 QRS: 14 QRSD: 116 T: 150 QT: 392 QTc: 423 Interpretive Statements 1100 Sinus rhythm 1570 with occasional ventricular premature complexes 2540 Incomplete left bundle branch block [address] depression 7500 Abnormal QRS-T angle 8003 Consistent with pulmonary disease 8101 Low QRS voltage in limb leads 9150 abnormal ECG Compared to ECG 09/12/2024 17:55:25 Ventricular premature complex(es) now present First degree AV block no longer present ST (T wave) deviation still present Electronically Signed On 11-21-2024 10:48:25 EST by MALAIKA FAUST M.D.
--- NOTE | 2024-11-21 09:43 | ED_ITS ---
HPI HPI - General Adult General Chief complaint: Recheck/Abnormal Lab/Rx Stated complaint: PNEUMONIA Time Seen by Provider: 11/21/24 09:36 Source: patient and medical record Mode of arrival: ambulance Limitations: no limitations History of Present Illness HPI narrative: Patient presents to the emergency department from his rehab facility because they are concerned about screening him for TB. Patient states that during his working career he would get her TB test every year which remained negative. He has been at this current access rehab facility for at least 3 weeks and 2 days ago they wanted to do a skin test for TB which she declined. They have gotten 2 chest x-rays since then which showed patchy density in the left lung base suspicious for pneumonia. The radiologist's interpretation states that due to left lung infiltrate and pleural effusion active TB cannot be excluded at this time. Patient's prison requests CT scan of the chest and the blood test for TB. Patient has a history of heart failure. He underwent coronary artery bypass and graft over 10 years ago. He has an implanted ICD. He has had runs of nonsustained V. tach in the last few months and mexiletine was added the dose of which had to be decreased significantly because of abnormal liver function test and poor GI tolerance. Patient does not report chest pain or shortness of breath, chills or fever or bodyaches. Related Data Home Medications ?Medication ?Instructions ?Recorded ?Confirmed atorvastatin 40 mg tablet 40 mg PO DAILY 09/26/23 11/21/24 ferrous sulfate 325 mg (65 mg 325 mg PO DAILY 09/26/23 09/13/24 iron) tablet (Feosol) metoprolol succinate 25 mg 25 mg PO DAILY 09/26/23 09/12/24 tablet,extended release 24 hr thyroid (pork) 15 mg tablet (PRINCIPAL ASSOCIATE 15 mg PO DAILY 09/26/23 09/12/24 Thyroid) dapagliflozin propanediol 5 mg 10 mg PO QAM 09/27/23 09/13/24 tablet (Farxiga) ezetimibe 10 mg tablet 10 mg PO DAILY 09/27/23 09/12/24 thyroid (pork) 60 mg tablet (PRINCIPAL ASSOCIATE 60 mg PO DAILY 09/27/23 09/12/24 Thyroid) apixaban 2.5 mg tablet (Eliquis) 5 mg PO Q12H 09/13/24 11/21/24 torsemide 20 mg tablet 20 mg PO BID 09/13/24 09/13/24 bumetanide 0.5 mg tablet 2 mg PO DAILY 11/21/24 11/21/24 Previous Rx's ?Medication ?Instructions ?Recorded meclizine 25 mg tablet 25 mg PO QID PRN dizziness #20 tabs 09/16/24 doxycycline hyclate 100 mg capsule 100 mg PO BID 7 days #14 caps 11/21/24 Allergies Allergy/AdvReac Type Severity Reaction Status Date / Time latex Allergy Severe Rash Verified 11/21/24 09:09 Opioid HPI Opioid Management Most Recent Opioid Data: Last Pain Scale 6 09/15/24 12:24 09/15/24 Last ORT Total Score 0 09/12/24 20:34 09/12/24 Last ORT Risk Category Low Risk 09/12/24 20:34 09/12/24 Review of Systems ROS Status of ROS 10 or more systems reviewed and unremark able except as noted in history and below [facility] Medical History Anemia ?D64.9 - Anemia, unspecified (ICD-10) Dyspnea ?R06.00 - Dyspnea, unspecified (ICD-10) Abrasion, multiple sites ?T07.XXXA - Unspecified multiple injuries, initial encounter (ICD-10) Edema of both lower legs due to peripheral venous insufficiency ?I87.2 - Venous insufficiency (chronic) (peripheral) (ICD-10) ?R60.0 - Localized edema (ICD-10) GI bleed ?K92.2 - Gastrointestinal hemorrhage, unspecified (ICD-10) Myocardial infarct ?I21.9 - Acute myocardial infarction, unspecified (ICD-10) Prostate CA ?C61 - Malignant neoplasm of prostate (ICD-10) Stroke ?I63.9 - Cerebral infarction, unspecified (ICD-10) Cardiac defibrillator in place ?Z95.810 - Presence of automatic (implantable) cardiac defibrillator (ICD-10) FH: carotid endarterectomy ?Z82.49 - Family history of ischemic heart disease and other diseases of the circulatory system (ICD-10) Non-sustained ventricular tachycardia ?I47.29 - Other ventricular tachycardia (ICD-10) Elevated troponin ?R79.89 - Other specified abnormal findings of blood chemistry (ICD-10) CHF (congestive heart failure) ?I50.9 - Heart failure, unspecified (ICD-10) Surgical History S/P triple vessel bypass ?Z95.1 - Presence of aortocoronary bypass graft (ICD-10) S/P mitral valve clip implantation ?Z98.890 - Other specified postprocedural states (ICD-10) ?Z95.818 - Presence of other cardiac implants and grafts (ICD-10) Family History Brother Family history of CHF (congestive heart failure) Father Family history of myocardial infarction Social History Within the past year, how often did you have a drink containing alcohol: never Score interpretation: A score less than 4 is consistent with normal alcohol consumption. Smoking status: Never smoker Non-prescribed substance use: denies use Highest level of school completed/degree received: some college, no degree Are you now , , , , never or living with a partner: Little interest or pleasure in doing things: not at all Feeling down, depressed, or hopeless: not at all Do you think of yourself as: straight/heterosexual Gender Identity: male Exam Narrative Exam Narrative: Afebrile and nondistressed. Mildly tachycardic. Oxygen saturation is 95% on room air. There is no conversational dyspnea. Patient has pallor. Pupils are equal and EOMs are full. HEENT exam is normal to inspection. Neck is supple. Lung sounds are grossly clear bilaterally with good air entry. Heart has regular rate and rhythm with some extra beats heard. Abdomen is mildly protuberant, soft and nontender. There is no fluid wave or organomegaly. Patient does not have unilateral leg swelling and has 1+ pitting edema of the ankles and pretibial areas. He does not have calf tenderness. Speech and mentation are clear and intact. There is no facial asymmetry. He moves all extremities actively. Constitutional Vital Signs, click to edit/add: Last Vital Signs Temp 97.7 F 11/21/24 08:55 Pulse 83 11/21/24 11:00 Resp 28 H 11/21/24 11:00 BP 112/76 11/21/24 11:00 Pulse Ox 94 L 11/21/24 11:00 O2 Del Method Room Air 11/21/24 08:55 Course Vital Signs Vital signs: Vital Signs Temperature 97.7 F 11/21/24 08:55 Pulse Rate 119 H 11/21/24 08:55 Respiratory Rate 18 11/21/24 08:55 Blood Pressure 120/88 11/21/24 08:55 Pulse Oximetry 95 11/21/24 08:55 Oxygen Delivery Method Room Air 11/21/24 08:55 Temperature 97.7 F 11/21/24 08:55 Pulse Rate 83 11/21/24 11:00 Respiratory Rate 28 H 11/21/24 11:00 Blood Pressure 112/76 11/21/24 11:00 Pulse Oximetry 94 L 11/21/24 11:00 Oxygen Delivery Method Room Air 11/21/24 08:55 Medical Decision Making MDM Narrative Medical decision making narrative: Twelve-lead EKG is interpreted by me and shows sinus rhythm with a rate of 77 bpm. Occasional PVCs are noted. There is no acute ST elevation. High lateral wall ST segment depression is noted. QRS voltages are low. CBC is unremarkable. BUN is 33 with creatinine 2.3 and he has normal chronic kidney disease. Troponins were elevated at 1139 with a second one at 1120. Patient always runs elevated troponins. He has not had chest pain or shortness of breath. BNP was greater than 35,000. CT scan of the chest was obtained and it reports bilateral pleural effusions worse on the left. There is mild ascites also. He has some inflammatory changes in the upper lobes of his lungs suspicious for atypical pneumonitis for which she is placed on doxycycline. He is also treated with Bumex 2 mg IV for a little bit extra diuresis while in the ED and has voided well. Blood has been drawn for QuantiFERON gold test for TB for which I have no index of suspicion. Patient is discharged back to his rehab facility. He had been prescribed Augmentin which is to be discontinued and because of possible atypical pneumonitis I have switched him to doxycycline. He is to be weighed daily and for any gaining weight of 3 pounds or greater and extra dose of Bumex is to be administered. Weekly blood work is also advised because he is concerned about potassium fluctuations. Follow-up is with his own physicians and he may return anytime for worsening symptoms. Lab Data Labs: Lab Results 11/21/24 11/21/24 Range/Units 10:07 12:25 WBC 5.3 (4.0-11.0) 10^3/uL RBC 3.95 L (4.70-6.10) 10^6/uL Hgb 11.6 L (14.0-18.0) g/dL Hct 37.4 L (42.0-54.0) % MCV 94.7 H (80.0-94.0) fL MCH 29.4 (25.9-34.0) pg MCHC 31.0 (29.9-35.2) g/dL RDW 20.5 H (11.0-15.0) % Plt Count 169 (150-450) 10^3/uL MPV 10.4 (9.5-13.5) fL Neut % (Auto) 61.0 (43.0-75.0) % Lymph % (Auto) 21.8 (20.5-60.0) % [place] % (Auto) 12.4 H (1.7-12.0) % Eos % (Auto) 3.6 (0.9-7.0) % Baso % (Auto) 0.8 (0.2-2.0) % Neut # (Auto) 3.2 (1.4-6.5) 10^3/uL Lymph # (Auto) 1.2 (1.2-3.8) 10^3/uL [place] # (Auto) 0.7 (0.3-0.8) 10^3/uL Eos # (Auto) 0.2 (0.0-0.7) 10^3/uL Baso # (Auto) 0.0 (0.0-0.1) 10^3/uL Abs Immat Gran (auto) 0.02 (0.00-0.03) 10^3/uL Imm/Tot Granulo (auto) 0.4 (0.0-0.5) % Sodium 137 (136-145) mmol/L Potassium 4.1 (3.5-5.1) mmol/L Chloride 101 (98-107) mmol/L Carbon Dioxide 30.8 (21.0-32.0) mmol/L Anion Gap 9.3 BUN 33.0 H (7.0-18.0) mg/dL Creatinine 2.30 H (0.70-1.30) mg/dL Est GFR ( Amer) 33 L (>=60 mL/min/1.73m^2) Est GFR (Non-Af Amer) 27 L (>=60 mL/min/1.73m^2) BUN/Creatinine Ratio 14.3 Glucose 90 (74-106) mg/dL Calcium 9.2 (8.5-10.1) mg/dL Magnesium 2.1 (1.8-2.4) mg/dL Total Bilirubin 1.0 (0.2-1.0) mg/dL AST 21 (15-37) U/L ALT 10 L (16-63) U/L Alkaline Phosphatase 124 H (46-116) U/L Troponin I High Sens 1139.8 H* 1120.2 H* (4.0-76.1) pg/mL NT-Pro-B Natriuret Pep >88369.0 H* (<=1800.0) pg/mL Total Protein 7.1 (6.4-8.2) g/dL Albumin 3.2 L (3.4-5.0) g/dL Globulin 3.9 g/dL Albumin/Globulin Ratio 0.8 Free T4 1.32 (0.76-1.46) ng/dL TSH & Free T4 Interp 5.982 H (0.358-3.740) uIU/mL Discharge Plan Discharge Chief Complaint: Recheck/Abnormal Lab/Rx Clinical Impression: Atypical pneumonia Heart failure Qualifiers: Heart failure type: unspecified Heart failure chronicity: unspecified Qualified Code(s): I50.9 - Heart failure, unspecified Patient Disposition: Home, Self-Care Time of Disposition Decision: 13:08 Condition: Good Prescriptions / Home Meds: New doxycycline hyclate 100 mg capsule 100 mg PO BID 7 Days Qty: 14 0RF No Action Eliquis 2.5 mg tablet 5 mg PO Q12H torsemide 20 mg tablet 20 mg PO BID meclizine 25 mg tablet 25 mg PO QID PRN (Reason: dizziness) Qty: 20 0RF bumetanide 0.5 mg tablet 2 mg PO DAILY Patient Comments: give 2mg po AM and PM. atorvastatin 40 mg tablet 40 mg PO DAILY metoprolol succinate 25 mg tablet extended release 24 hr 25 mg PO DAILY thyroid (pork) [PRINCIPAL ASSOCIATE Thyroid] 15 mg tablet 15 mg PO DAILY ferrous sulfate [Feosol] 325 mg (65 mg iron) tablet 325 mg PO DAILY ezetimibe 10 mg tablet 10 mg PO DAILY Rx Instructions: in PM dapagliflozin propanediol [Farxiga] 5 mg tablet 10 mg PO QAM thyroid (pork) [PRINCIPAL ASSOCIATE Thyroid] 60 mg tablet 60 mg PO DAILY Print Language: Stateless Instructions: Pneumonia (ED) Additional Instructions: Check your weight daily at the same time of day. For any weight gain greater than 3 pounds on a given day, take an extra 2 mg Bumex in the afternoon. CT scan of the chest shows evidence of chronic heart failure which you are known to have. Findings in the upper lungs are suggestive of early atypical pneumonia. There are no findings to suggest tuberculosis based on these images. Doxycycline is prescribed for pneumonia. Since it was an atypical pneumonia, you do not need to take Augmentin which was prescribed yesterday. I recommend weekly blood work to check your potassium level since it has fluctuated significantly in the past. Return anytime for worsening symptoms. Referrals: Samm Serrano MD [Primary Care Provider] - 1 week Discharge Date/Time: 11/21/24 14:02
[2024-11-21 10:20] LABS: Basophils Percent Auto 0.8 % (0.2-2.0); Eosinophils Absolute Auto 0.2 10^3/uL (0.0-0.7); Eosinophils Percent Auto 3.6 % (0.9-7.0); Hematocrit 37.4 % (42.0-54.0); Hemoglobin 11.6 g/dL (14.0-18.0); Immature Granulocytes Abs Auto 0.02 10^3/uL (0.00-0.03); Immature Granulocytes Pct Auto 0.4 % (0.0-0.5); Lymphocytes Absolute Auto 1.2 10^3/uL (1.2-3.8); Lymphocytes Percent Auto 21.8 % (20.5-60.0); Mean Corpuscular Hemoglobin 29.4 pg (25.9-34.0); Mean Corpuscular Volume 94.7 fL (80.0-94.0); Mean Platelet Volume 10.4 fL (9.5-13.5); Monocytes Absolute Auto 0.7 10^3/uL (0.3-0.8); Monocytes Percent Auto 12.4 % (1.7-12.0); Neutrophils Absolute Auto 3.2 10^3/uL (1.4-6.5); Platelet Count 169 10^3/uL (150-450); Red Blood Count 3.95 10^6/uL (4.70-6.10); Red Cell Distribution Width 20.5 % (11.0-15.0); White Blood Count 5.3 10^3/uL (4.0-11.0)
[2024-11-21 10:39] LABS: Alanine Aminotransferase 10 U/L (16-63); Albumin Globulin Ratio 0.8; Albumin Level 3.2 g/dL (3.4-5.0); Alkaline Phosphatase 124 U/L (46-116); Anion Gap 9.3; Aspartate Amino Transferase 21 U/L (15-37); BUN Creatinine Ratio 14.3; Calcium 9.2 mg/dL (8.5-10.1); Carbon Dioxide 30.8 mmol/L (21.0-32.0); Chloride 101 mmol/L (98-107); Estimated GFR (African America 33 (>=60 mL/min/1.73m^2); Estimated GFR (Non-African Ame 27 (>=60 mL/min/1.73m^2); Globulin 3.9 g/dL; Glucose 90 mg/dL (74-106); Magnesium 2.1 mg/dL (1.8-2.4); Potassium 4.1 mmol/L (3.5-5.1); Sodium 137 mmol/L (136-145); TSH W/ REFLEX FT4 5.982 uIU/mL (0.358-3.740); Total Protein 7.1 g/dL (6.4-8.2)
[2024-11-21 10:40] LABS: NT Pro B Type Natriuretic Pept >35000.0 pg/mL (<=1800.0); Troponin I High Sensitivity 1139.8 pg/mL (4.0-76.1)
[2024-11-21 10:57] LABS: Free T4 1.32 ng/dL (0.76-1.46)
[2024-11-21] MEDS: APIXABAN 5 MG TABLET 2.5 MG PO (12:13)
[2024-11-21] MEDS: BUMETANIDE 1 MG/4 ML VIAL 2 MG IVP (12:13)
[2024-11-21] MEDS: METOPROLOL SUCCINATE 25 MG TAB.ER.24H 12.5 MG PO (12:13)
[2024-11-21] MEDS: PANTOPRAZOLE SODIUM 40 MG TABLET.DR PO (12:13)
[2024-11-21 12:50] LABS: Troponin I High Sensitivity 1120.2 pg/mL (4.0-76.1)
== END 2024-11-21 14:02 | disposition home or self-care (01) ==
PROVIDERS: Emergency Provider Emergency Medicine; PCP Family Medicine
DX: J18.9 Pneumonia, unspecified organism (principal); I50.9 Heart failure, unspecified; Z95.1 Presence of aortocoronary bypass graft; Z95.810 Presence of automatic (implantable) cardiac defibrillator; Z95.818 Presence of other cardiac implants and grafts
CPT/HCPCS: 36415; 71250; 80053; 83735; 83880; 84439; 84443; 84484; 85025; 86480; 93005; 96374; 99285

== ENCOUNTER 2025-03-04 15:12 | Inpatient (IN) | payer MEDICARE, OTHER, SELFPAY ==
--- OUTSIDE RECORDS SUMMARY | 2024-10-08 10:45 | XMS_ITS ---
Author Organization [facility] vices Address [address] [place] [phone] Care Team Providers Care Quality Assurance/R&D Lab Technician Name Role Phone Kayli Stokes Unavailable [phone] REASON FOR VISIT SDF Social History Sex Assigned At : Social History Observation Description Sex Assigned At Male Encounters Encounter Location Date Provider Diagnosis [facility] [address] [place], [place] [id number] 10/08/2024 Kayli Stokes Plan Of Treatment No Information Progress Notes * IRA PramoddgDOB: 2 (85 yo M)Acc No.[id number]:10/08/2024 Dental Note Patient: José Miguel BRIGGS Provider: Marisa Stokes DDS :1940 A ge:84 Y S ex:Male Date:10/08/2024 Address:[address] [place], [place] [phone] Subjective: * Chief Complaints: * 1 . SDF. * Medical History: Objective: * Vitals: Assessment: Plan: * Treatment: * Billing Information: * Visit Code: * Procedure Codes: * Electronic signature of Helen Stokes DDS on 03/04/2025 at 03:19 PM EDT Sign off status: Pending * Provider: Marisa Stokes DDS Date: 10/08/2024 Generated for Tripi ng/Fatommyg/eTransmitting on: 03/04/2025 03:19 PM EDT
--- OUTSIDE RECORDS SUMMARY | 2024-11-25 14:24 | XMS_ITS ---
Author Organization Corporate Office Address [address] [place] [address] [address] [place] [address] Care Team Providers Care Curator Natural [employer] Name Role Phone Maggie YOUNG, Samm Primary Care Provider Laila Juan DO Unavailable [phone] REASON FOR VISIT new labs Encounters Encounter Location Date Provider Diagnosis [facility] [address] [place] [address] 11/25/2024 Laila Marina Plan Of Treatment Next Appt Details Provider Name:Laila quintana, 08/03/2025 03:00:00 PM, [address], [place], [address], Progress Notes * IRA PramoddgDOB: 2 (84 yo M)Acc No.[id number]:11/25/2024 Patient: José Miguel BRIGGS :1940 A ge:84 Y S ex:Male Address:[address] [place] [address] [address], [place], [address] * true * Date: Generated for Printi ng/Faxing/eTransmitting on: 0 03/04/2025 03:21 PM EDT
--- OUTSIDE RECORDS SUMMARY | 2025-01-20 13:44 | XMS_ITS ---
Author Organization Corporate Office Address [address] [place] [address] [address] [place] [address] Care Team Providers Care Oil Well Gun Perforator Operator Name Role Phone Samm Serrano MD Primary Care Provider Laila Juan DO Unavailable [phone] REASON FOR VISIT results Encounters Encounter Location Date Provider Diagnosis [facility] End[facility] [address] [place] [address] 01/20/2025 Laila Marina Plan Of Treatment Next Appt Details Provider Name:Laila quintana, 08/03/2025 03:00:00 PM, [address], [place], [address], Progress Notes * José Miguel ROTHDOB: 2 (84 yo M)Acc No.[id number]:01/20/2025 Patient: José Miguel BRIGGS :1940 A ge:84 Y S ex:Male Address:[address] [place] [address] [address], [place], [address] * true * Date: Generated for Printi ng/Faxing/eTransmitting on: 0 03/04/2025 03:22 PM EDT
--- OUTSIDE RECORDS SUMMARY | 2025-01-26 12:57 | XMS_ITS ---
Author Organization Corporate Office Address [address] [place] [address] [address] [place] [address] Care Team Providers Care Needle Loom Weaver Name Role Phone Maggie YOUNG, Samm Primary Care Provider Laila Juan DO Unavailable REASON FOR VISIT Update Demographics - Personal Info Encounters Encounter Location Date Provider Diagnosis [facility] Endocrinology [address] [place] [address] 01/26/2025 Laila Marina Plan Of Treatment Next Appt Details Provider Name:Laila quintana, 08/03/2025 03:00:00 PM, [address], [place], [address], Progress Notes * IRA José MiguelDOB: 2 (84 yo M)Acc No.[id number]:01/26/2025 Patient: José Miguel BRIGGS :1940 A ge:84 Y S ex:Male Address:[address] [place] [address] [address], [place], [address] * true * Date: Generated for Printi ng/Faxing/eTransmitting on: 0 03/04/2025 03:19 PM EDT
--- OUTSIDE RECORDS SUMMARY | 2025-02-18 11:55 | XMS_ITS ---
Author Organization [facility] [place] Address [address] [place] [address] Care Team Providers Care Presales Consultant Name Role Phone MaggieSesar Primary Care Provider REASON FOR VISIT hospital bed Medications Medication SIG (Take, Route, Fr equency, Duration) Notes Start Date End Date Status Hospital Bed - Use daily for DX COPD for 365 days 02/22/2025 Active Encounters Encounter Location Date Provider Diagnosis [facility] [address] [place] [address] 02/18/2025 Sesar Serrano Plan Of Treatment Medication Medication Name Sig Start Date Stop Date Notes Hospital Bed - Use daily for DX COPD for 365 days 02/23/20 Progress Notes * José Miguel ROTH LDOB: [birth year] (85 yo M)Acc No.[id number]:02/18/2025 Patient: Nona José Miguel SAEZ :1940 A ge:84 Y S ex:Male Address:[address] [place] [address], [place], [address] * Refills Start Hospital Bed -, -, 1, Use daily for DX COPD, 365 days, Refills=0 * true * Date: Generated for Tripi ng/Fatommyg/eTransmitting on: 0 03/04/2025 03:21 PM EDT
--- OUTSIDE RECORDS SUMMARY | 2025-02-22 10:29 | XMS_ITS ---
Author Organization [facility] [place] Address [address] [place] [address] Care Team Providers Care Talent Development Specialist Name Role Phone Sesar Serrano Primary Care Provider REASON FOR VISIT update rash Medications Medication SIG (Take, Route, Fr equency, Duration) Notes Start Date End Date Status predniSONE 20 MG 3 tablet with food o r milk Orally Once a day for 5 days 02/22/2025 Active Encounters Encounter Location Date Provider Diagnosis [facility] [address] [place] [address] 02/22/2025 Sesar Serrano Plan Of Treatment Medication Medication Name Sig Start Date Stop Date Notes predniSONE 20 MG 3 tablet with food o r milk Orally Once a day for 5 days 02/22/2025 Progress Notes * José Miguel ROTH LDOB: [birth year] (85 yo M)Acc No.[id number]:02/22/2025 Patient: Nona José Miguel SAEZ :1940 A ge:85 Y S ex:Male Address:[address] [place] [address], [place], [address] * Refills Start predniSONE Tablet, 20 MG, Orally, 15 Tablet, 3 tablet with food or milk, Once a day, 5 days, Refills=0 * true * Date: Generated for Tripi ng/Faxing/eTransmitting on: 0 03/04/2025 03:19 PM EDT
--- OUTSIDE RECORDS SUMMARY | 2025-03-01 09:45 | XMS_ITS | Encounter Summary ---
Author Organization [facility] Address [address] [place] [address] Care Team Providers Care Order Detailer Name Role Phone Samm Serrano MD Primary Care Provider [phone] Tom Gonzalez Unavailable [phone] Andreas Pierre MD Unavailable Virgil Carrillo MD Unavailable Jethro Mendoza MD Unavailable Isaías Kinney MD Unavailable Source Comments In the event this information is protected by the Federal Confidentiality of Alcohol and Drug AbusePatient Records regulations: The Federal rules restrict any use of the information to criminally investigate or prosecute any alcohol or drug abuse patient.[facility] Reason for Visit * Outpatient Procedure (Routine) - Closed Specialty Diagnoses / Procedures Referred By Contac t Referred To [facility] Diagnoses Cardiomyopathy, ischemic S/P mitral valve clip implantation Procedures ECG COMPLETE ECG ROUTINE ECG W/LEAST 12 LDS W/I&R Jethro Mendoza MD [address] [place] [address] Phone: tel: fax: [facility] [address] [place] [address] Referral ID Status Reason Start Date Expiration Date V isits Requested Visits Authorized [id number] Closed Auto-Generate d Referral 03/30/2024 03/30/2025 1 1 Encounter Details Date Type Department Care Team (Late st Contact Info) Description 03/01/2025 9:45 AM EDT Procedure Cardiology [address] [id number] Social History Tobacco Use Types Packs/Day Years Used Date Smoking Tobacco: Former Cigarettes 1 10 0 04/28/1972 - 04/28/1982 Pipe Passive Smoke Exposure: Never Smokeless Tobacco: Never Alcohol Use Standard Drinks/Week Comments Not Currently 0 (1 standard drink = 0.6 oz pur e alcohol) rarely [facility] Utilities Answer Date Recorded In the past 12 months has [employer], gas, oil, or water [employer] threatened to shut off services in your home? No 07/22/2024 AUDIT-C Answer Date Recorded Q1: How often do you have a drink containing alc ohol? Monthly or less 04/15/2020 Q2: How many drinks containi ng alcohol do you have on a typical day when you are drinking? 1 or 2 04/15/2020 Frequency of Binge Drinking Not on file 03/18 PHQ-2 Answer Date Recorded PHQ-2 score 4 06/01/2024 Hunger Vital Sign Answer Date Recorded Within the past 12 months, y ou worried that your food would run out before you got the money to buy more. Never true 07/22/20 24 Within the past 12 months, t he food you bought just didn't last and you didn't have money to get more. Never true 07/22/2024 PRAPARE - Transportation Answer Date Re corded In the past 12 months, has l ack of transportation kept you from medical appointments or from getting medications? No 02/2024 In the past 12 months, has l ack of transportation kept you from meetings, work, or from getting things needed for daily living? No 07/22/2024 Housing Stability Vital Sign Answer Akbar e Recorded In the last 12 months, was t here a time when you were not able to pay the mortgage or rent on time? No 03/02/2024 In the last 12 months, how many places have you lived? 1 03/02/2024 In the last 12 months, was t here a time when you did not have a steady place to sleep or slept in a alf (including now)? No 03/02/2024 Housing Stability Vital Sign Answer Akbar e Recorded In the last 12 months, was t here a time when you were not able to pay the mortgage or rent on time? Yes 07/22/2024 In the past 12 months, how m any times have you moved where you were living? 0 07/22/2024 At any time in the past 12 m [facility], were you homeless or living in a alf (including now)? Yes 07/22/2024 Area Deprivation Index Answer Date Rich rded National Score (1-100), lower number is lower ri sk 52 02/05/2024 State Score (1-10), lower number is lower risk 3 02/05/2024 Data from: https://www.neighborhoodatlas.medicine.[facility].edu/. Last address used for calculation [address] [place] [address] [address] 02/05/2024 Sex and Gender Information Value Date Recorded Sex Assigned at Male 02/22/2019 10:48 PM EDT Legal Sex Male 8:07 AM EST Gender Identity Male 02/22/2019 10:48 PM EDT Sexual Orientation Straight 02/22/2019 10 :48 PM EDT documented as of this encounter Functional Status * Are you deaf or do you have serious difficulty hearing? Answer Date of Assessment Author No 09/25/2024 12:55 PM Allyn Garcia RN * Are you blind or do you have serious difficulty seeing, even when wearing glasses? Answer Date of Assessment Author No 09/25/2024 12:55 PM Allyn Garcia RN * Do you have serious difficulty walking or climbing stairs? Answer Date of Assessment Author Yes 09/25/2024 12:55 PM Allyn Garcia RN * Do you have difficulty dressing or bathing? Answer Date of Assessment Author No 09/25/2024 12:55 PM Allyn Garcia RN * Because of a physical, mental, or emotional condition, do you have difficulty doing errands alone such as visiting a doctor's office or shopping? Answer Date of Assessment Author No 09/25/2024 12:55 PM Allyn Garcia RN documented as of this encounter Mental Status * Because of a physical, mental, or emotional condition, do you have serious difficulty concentrating, remembering, or making decisions? Answer Entry Date Author No 09/25/2024 12:55 PM Allyn Garcia RN documented in this encounter Plan of Treatment Upcoming Encounters Date Type Department Care Team (Late st Contact Info) Description 06/30/2025 10:00 AM EDT Office Visit Cardiology [address] [place] [address] Isaías Kinney MD [address] [place] [address] DX: Chronic diastolic heart failure Pending Results Name Type Priority Associated Diagnoses Date /Time ECG COMPLETE ECG Routine Cardiomyopathy, ischemic S/P mitral valve clip implantation 03/01/2025 10:52 AM EDT documented as of this encounter Goals Goal Patient Goal Type Associated Problems Recent Progress Patient-Stated? Author Blood Pressure < 130/80 Blood Pressure 134/63( 025 3:00 PM EDT) Lidia Soto, ARIES documented as of this encounter Procedures Procedure Name Priority Date/Time Associated Diagnosis Comments ECG COMPLETE Routine 03/01/2025 10:52 AM EDT Cardiomyopathy, ischemic S/P mitral valve clip implantation documented in this encounter Visit Diagnoses Diagnosis Cardiomyopathy, ischemic Other specified forms of chronic ischemic heart disease S/P mitral valve clip implantation documented in this encounter Care Teams Order Detailer Relationship Specialty Start Date End Date Samm Serrano MD PCP - General Family Medicine 05/30/12 Tom Gonzalez [address] [place] [address] Primary Staff Physician Cardiology 12/02/18 Andreas Pierre MD [address] [place] [address] Primary Staff Physician Cardiology 04/26/23 Virgil Carrillo MD [address] [id number] Primary Staff Physician Cardiology 10/29/23 Jethro Mendoza MD [address] [place] [address] Primary Staff Physician Cardiology 12/26/23 Isaías Kinney MD [address] [id number] Primary Staff Physician Cardiology 01/10/24 documented as of this encounter
--- OUTSIDE RECORDS SUMMARY | 2025-03-01 10:30 | XMS_ITS | Encounter Summary ---
Author Organization [facility] Address [address] [place] [id number] Care Team Providers Care Ip Paralegal Name Role Phone Samm Serrano MD Primary Care Provider +-[phone] Tom Gonzalez Unavailable [phone] Andreas Pierre MD Unavailable Virgil Carrillo MD Unavailable Jethro Mendoza MD Unavailable Isaías Kinney MD Unavailable [phone] Source Comments In the event this information is protected by the Federal Confidentiality of Alcohol and Drug AbusePatient Records regulations: The Federal rules restrict any use of the information to criminally investigate or prosecute any alcohol or drug abuse patient.[facility] Reason for Referral * Outpatient Procedure (Routine) - Closed Specialty Diagnoses / Procedures Referred By Contac t Referred To [facility] Diagnoses Pacemaker reprogramming/check Procedures CARDIAC IMPLANTABLE DEVICE CHECK Cardiology [address] [place] [address] Phone: tel: [address] [phone] Referral ID Status Reason Start Date Expiration Date V isits Requested Visits Authorized [id number] Closed Auto-Generate d Referral 08/19/2024 08/19/2025 1 1 * Outpatient Procedure (Routine) - Closed Specialty Diagnoses / Procedures Referred By Contac t Referred To Contact [facility] Diagnoses Pacemaker reprogramming/check Procedures CARDIAC IMPLANTABLE DEVICE CHECK Cardiology [address] [place] [address] Phone: tel: [address] [phone] Referral ID Status Reason Start Date Expiration Date V isits Requested Visits Authorized [id number] Closed Auto-Generate d Referral 08/19/2024 08/19/2025 1 1 Reason for Visit * Outpatient Procedure (Routine) - Closed Specialty Diagnoses / Procedures Referred By Contac t Referred To Contact [facility] Diagnoses Pacemaker reprogramming/check Procedures CARDIAC IMPLANTABLE DEVICE CHECK Cardiology [address] [place] [address] Phone: tel: [address] [phone] Referral ID Status Reason Start Date Expiration Date V isits Requested Visits Authorized [id number] Closed Auto-Generate d Referral 08/19/2024 08/19/2025 1 1 Encounter Details Date Type Department Care Team (Latest Contact Info) Description 03/01/2025 10:30 AM EDT - 03/01/2025 11:59 PM EDT Hospital Encounter Cardiology [address] [place] [id number] Pacemaker reprogramming/check [Z45.018] Discharge Disposition: Home Social History Tobacco Use Types Packs/Day Years Used Date Smoking Tobacco: Former Cigarettes 1 10 0 04/28/1972 - 04/28/1982 Pipe Passive Smoke Exposure: Never Smokeless Tobacco: Never Alcohol Use Standard Drinks/Week Comments Not Currently 0 (1 standard drink = 0.6 oz pur e alcohol) rarely [facility] Utilities Answer Date Recorded In the past 12 months has th e electric, gas, oil, or water company threatened to shut off services in your [...] place to sleep or slept in a custodial (including now)? No 03/02/2024 Housing Stability Vital Sign Answer Akbar e Recorded In the last 12 months, was t here a time when you were not able to pay the mortgage or rent on time? Yes 07/22/2024 In the past 12 months, how m any times have you moved where you were living? 0 07/22/2024 At any time in the past 12 m [facility], were you homeless or living in a custodial (including now)? Yes 07/22/2024 Area Deprivation Index Answer Date Rich rded National Score (1-100), lower number is lower ri sk 52 02/05/2024 State Score (1-10), lower number is lower risk 3 02/05/2024 Data from: https://www.[email or web address].[email or web address]/. Last address used for calculation [address] [place] [address] [address] 02/05/2024 Sex and Gender Information [...] Allyn Garcia RN documented in this encounter Medications at Time of Discharge dapagliflozin propanediol (FARXIGA) 10 mg tablet Take 1 tablet by mouth daily with breakfast. 90 tablet 3 12/21/2024 12/21/2025 mexiletine (MEXITIL) 150 mg capsule Take 150 mg by mouth two times a day. metoprolol succinate ER (TOPROL XL) 25 mg 24 hr tablet Take 12.5 mg by mouth once daily. apixaban (ELIQUIS) 2.5 mg tab(s) Take 1 tablet by mouth two times a day. 05/16/2024 bumetanide (BUMEX) 2 mg tablet Take 2 mg by mouth two times a day. potassium chloride ER (KLOR-CON) 20 mEq tablet Take 20 mEq by mouth once daily. thiamine (VITAMIN B1) 100 mg tablet Take 100 mg by mouth once daily. cetirizine (ZYRTEC) 10 mg tablet Take 1 tablet by mouth once daily as needed. 30 tablet 3 07/26/2024 documented as of this encounter Plan of Treatment Upcoming Encounters Date Type Department Care Team (Late st Contact Info) Description 06/30/2025 10:00 AM EDT Office Visit Cardiology [address] [place] [address] Isaías Kinney MD [address] [place] [address] DX: Chronic diastolic heart failure documented as of this encounter Goals Goal Patient Goal Type Associated Problems Recent Progress Patient-Stated? Author Blood Pressure < 130/80 Blood Pressure 134/63( 025 3:00 PM EDT) No Lidia Lo RN documented as of this encounter Procedures Procedure Name Priority Date/Time Associated Diagnosis Comments CARDIAC IMPLANTABLE DEVICE CHECK Routine 03/01/2025 11:26 AM EDT Pacemaker reprogramming/check documented in this encounter Results * CARDIAC IMPLANTABLE DEVICE CHECK (03/01/2025 11:26 AM EDT) Date Time Interrogation Session [id number] [employer] Implantable Pulse Generator Saturator Tender [employer] Implantable Pulse Generator Type Defibrillator [employer] Implantable Pulse Generator Model D142 [employer] Implantable Pulse Generator Serial Number [id number] [employer] Implantable Pulse Generator Implant Date [id number] [employer] Battery Status MONIKA [facility] CARDIAC Bj Statistic RA Percent Paced 1.00 [facility] Bj Statistic RV Percent Paced 1.00 [facility] Atrial Tachy Statistic AT/AF [place] Percent 1.00 [facility] Lead Channel Sensing Intrinsic Amplitude 1.800 [facility] Lead Channel Setting Sensing Sensitivity 0.25 [facility] Lead Channel Impedance Value 647 [facility] Lead Channel Setting Pacing Amplitude 2.000 [facility] Lead Channel Setting Pacing Pulse Width 0.5 [facility] Lead Channel Sensing Intrinsic Amplitude 18.700 [facility] Lead Channel Setting Sensing Sensitivity 0.30 [facility] Lead Channel Impedance Value 375 [facility] Lead Channel Pacing Threshold Amplitude 0.400 [facility] Lead Channel Pacing Threshold Pulse Width 0.5 [facility] Lead Channel Measurements Date and Time 2025-03-01 [facility] Lead Channel Setting Pacing Amplitude 2.000 [facility] Lead Channel Setting Pacing Pulse Width 0.5 [facility]AC Bj Setting Mode (NBG Code) DDDR [facility]ARD[facility]AC Bj Setting Lower Rate Limit 50 [facility]ARDIAC Bj Setting AT Mode Switch Rate 170 [facility]ARDIAC Bj Setting Maximum Tracking Rate 130 [facility]ARDIAC Bj Setting Maximum Sensor Rate 130 [facility] CARDIAC Bj Setting PAV Delay 200 MURJ CARDIAC Bj Setting ABDULLAHI Delay 170 MURJ CARDIAC Therapy Statistic Recent Shocks Delivered 0 MURJ CARDIAC Therapy Statistic Recent Shocks Aborted 0 MURJ CARDIAC Therapy Statistic Recent ATP Delivered 1 [facility] CARD[facility]AC Shock Measured Impedance 42 MURJ CARDIAC Zone Setting Type Category VF MURJ CARDIAC Rate 1 240 [facility]UR[facility] CARDIAC Therapies 41J, 41J [facility]UR[facility] CARDIAC Zone Setting Status On [employer] Zone ID 1 MURJ CARDIAC Zone Setting Type Category VT MURJ CARDIAC Rate 1 200 MURJ CARDIAC Therapies 41J, 41J MURJ CARDIAC Zone Setting Status On [employer] [employer] Zone ID 2 MURJ CARDIAC Zone Setting Type Category VT1 MURJ CARDIAC Rate 1 175 MURJ CARDIAC Therapies 41J, 41J MURJ CARDIAC Zone Setting Status On [place] C[employer] Zone ID 3 [employer] Implantable Lead Saturator Tender [employer] Implantable Lead Model 7741 Ingevity MRI [employer] C[employer] Implantable Lead Location Right Atrium [employer] Implantable Lead Connection Status Connected [employer] Implantable Lead Serial Number [id number] [employer] Implantable Lead Implant Date [id number] [employer] Implantable Lead Saturator Tender [employer] Implantable Lead Model 0675 [place] C[employer] Implantable Lead Location Right Ventricle [employer] Implantable Lead Connection Status Connected [employer] Implantable Lead Serial Number [id number] [employer] Implantable Lead Implant Date [id number] [employer] 03/01/2025 11:2 6 AM EDT Narrative [employer] - 03/01/2025 10:06 PM EDT In-Office Device Evaluation OPD with Dr. Wei * Device type: BST dual lead ICD * Presenting Rhythm: AF/VS-CONSERVATION AGENT * Underlying Rhythm: AF with variable ventricular rates * Battery Status: Battery is at 9.5 years. * Arrhythmias: There have been 9 atrial detections since last remote evaluation. Anticoagulants listed: Eliquis * Lead Measurements: RV capture threshold, sensing, and lead impedances reviewed and tested, stable measurements per trends * Implant Site/Symptoms: The incision and pocket are pain-free, well healed and without signs of erosion or infection. * Other Diagnostics: *AP 1%, CONSERVATION AGENT <1%, AT/AF burden 1% (however likely higher d/t DDIR programming)* Tachycardia: AF * Stored EGMs are consistent with or suggestive of Atrial Fibrillation, intermittent RVR observed on stored episodes * AT/AF [place]: 1% * OAC: Eliquis Appropriate VT Therapy: Successful * VT episode on 02/28 shows VT in the presence of AF, successfully converted with 1 burst of ventricular ATP. * Total episodes: 1 * Number of ATP therapy: 1 * Number of shocks delivered: 0 * Episode length: 21 seconds * V. rate during episode: 186bpm Device Reprogrammed Device reprogrammed, changes are listed below: Per Dr. Wei request * Atrial tachy detection rate lowered from 171bpm to 150bpm * ATR ventricular rate regulation programmed off - to reduce unnecessary RV pacing during AF * ATE fallback lower rate limit lowered from 60bpm to 50bpm to reduce RV pacing NOTE TO PROVIDERS: Cardiac Implanted Devices Flowsheets contain detailed Programming and Evaluation data. Full Docket/PDF found below under Scanned Documents . Procedure Note Nj Wei MD - 03/01/2025 In-Office Device Evaluation OPD with Dr. Wei * Device type: [facility] dual lead ICD * Presenting Rhythm: AF/VS-CONSERVATION AGENT * Underlying Rhythm: AF with variable ventricular rates * Battery Status: Battery is at 9.5 years. * Arrhythmias: There have been 9 atrial detections since last remoteevaluation. Anticoagulants listed: Eliquis * Lead Measurements: RV capture threshold, sensing, and lead impedancesreviewed and tested, stable measurements per trends * Implant Site/Symptoms: The incision and pocket are pain-free, wellhealed and without signs of erosion or infection. * Other Diagnostics: *AP 1%, CONSERVATION AGENT <1%, AT/AF burden 1% (however likelyhigher d/t DDIR programming)* Tachycardia: AF * Stored EGMs are consistent with or suggestive of Atrial Fibrillation,intermittent RVR observed on stored episodes * AT/AF [place]: 1% * OAC: Eliquis Appropriate VT Therapy: Successful * VT episode on 02/28 shows VT in the presence of AF, successfullyconverted with 1 burst of ventricular ATP. * Total episodes: 1 * Number of ATP therapy: 1 * Number of shocks delivered: 0 * Episode length: 21 seconds * V. rate during episode: 186bpm Device Reprogrammed Device reprogrammed, changes are listed below: Per Dr. Wei request * Atrial tachy detection rate lowered from 171bpm to 150bpm * ATR ventricular rate regulation programmed off - to reduce unnecessaryRV pacing during AF * ATE fallback lower rate limit lowered from 60bpm to 50bpm to reduce RVpacing NOTE TO PROVIDERS: Cardiac Implanted Devices Flowsheets contain detailedProgramming and Evaluation data. Full Docket/PDF found below under Scanned Documents . [facility] Provider CARDIOLOGY F inal Result [facility] documented in this encounter Visit Diagnoses Diagnosis Pacemaker reprogramming/check Fitting and adjustment of cardiac pacemaker documented in this encounter Care Teams Ip Paralegal Relationship Specialty Start Date End Date Samm Serrano MD PCP - General Family Medicine 05/30/12 Tom Gonzalez [address] [place] [address] Primary Staff Physician Cardiology 12/02/18 Andreas Pierre MD [address] [place] [address] Primary Staff Physician Cardiology 04/26/23 Virgil Carrillo MD [address] [place] [address] Primary Staff Physician Cardiology 10/29/23 Jethro Mendoza MD [address] [place] [address] Primary Staff Physician Cardiology 12/26/23 Isaías Kinney MD [address] [place] [address] Primary Staff Physician Cardiology 01/10/24 documented as of this encounter
--- OUTSIDE RECORDS SUMMARY | 2025-03-01 11:45 | XMS_ITS | Encounter Summary ---
Author Organization [facility] Address [address] [place] [id number] Care Team Providers Care Founder And Chief Technical Officer Name Role Phone Samm Serrano MD Primary Care Provider [phone] Tom Gonzalez Unavailable [phone] Andreas Pierre MD Unavailable Virgil Carrillo MD Unavailable Jethro Mendoza MD Unavailable Isaías Kinney MD Unavailable [phone] Source Comments In the event this information is protected by the Federal Confidentiality of Alcohol and Drug AbusePatient Records regulations: The Federal rules restrict any use of the information to criminally investigate or prosecute any alcohol or drug abuse patient.[facility] Reason for Referral * Transition of Care (Routine) - Authorized Specialty Diagnoses / Procedures Referred By Jordon t Referred To Contact [facility] Procedures CARDIOVASCULAR MEDICINE OP FOLLOW UP APPT ORDER Nj Wei MD [address] [place] [address] Phone: tel: fax: [facility] [place] [address] Referral ID Status Reason Start Date Expiration Date Visits Requested Visits Authorized [id number] Authorized PCP Requested Referral 12/01/2025 03/01/2026 1 1 Encounter Details Date Type Department Care Team (Latest Contact Info) Description 03/01/2025 11:45 AM EDT Office Visit Cardiology [address] [place] [address] Nj Wei MD [address] [place] [address] 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 (Primary Dx); Coronary artery disease involving coronary bypass graft of beaver heart without angina pectoris; Acute on chronic systolic congestive heart failure (HCC); S/P CABG (coronary artery bypass graft); Cardiomyopathy, ischemic; Frequent PVCs; VT (ventricular tachycardia) ([facility]); ICD (implantable cardioverter-defibrillat or) discharge; 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 kidney disease, unspecified CKD stage, unspecified whether fdc insulin use ([facility]); Stage 3b chronic kidney disease ([facility]); Paroxysmal atrial fibrillation ([facility]); terminal carman (current) use of anticoagulants Social History Tobacco Use Types Packs/Day Years Used Date Smoking Tobacco: Former Cigarettes 1 10 0 04/28/1972 - 04/28/1982 Pipe Passive Smoke Exposure: Never Smokeless Tobacco: Never Alcohol Use Standard Drinks/Week Comments Not Currently 0 (1 standard drink = 0.6 oz pur e alcohol) rarely [facility] Utilities Answer Date Recorded In the past 12 months has [employer], gas, oil, or water [employer] threatened to shut off services in your [...] place to sleep or slept in a usp (including now)? No 03/02/2024 Housing Stability Vital Sign Answer Akbar e Recorded In the last 12 months, was t here a time when you were not able to pay the mortgage or rent on time? Yes 07/22/2024 In the past 12 months, how m any times have you moved where you were living? 0 07/22/2024 At any time in the past 12 m [facility], were you homeless or living in a usp (including now)? Yes 07/22/2024 Area Deprivation Index Answer Date Rich rded National Score (1-100), lower number is lower ri sk 52 02/05/2024 State Score (1-10), lower number is lower risk 3 02/05/2024 Data from: https://www.neighborhoodatlas.medicine.[facility].edu/. Last address used for calculation [address] [place] [address] [address] 02/05/2024 Sex and Gender Information Value Date Recorded Sex Assigned at Male 02/22/2019 10:48 PM EDT Legal Sex Male 8:07 AM EST Gender Identity Male 02/22/2019 10:48 PM EDT Sexual Orientation Straight 02/22/2019 10 :48 PM EDT documented as of this encounter Last Filed Vital Signs Vital Sign Reading Time Taken Comments Blood Pressure 105/76 03/01/2025 2:20 PM EDT Pulse 106 03/01/2025 2:20 PM EDT Temperature - - Respiratory Rate - - Oxygen Saturation - - Inhaled Oxygen Concentration - - Weight 78.9 kg (174 lb) 03/01/2025 2:20 PM EDT Height 182.9 cm (6') 03/01/2025 2:20 PM EDT Body Mass Index 23.6 03/01/2025 2:20 PM EDT documented in this encounter Functional Status * Are you [...] Allyn Garcia RN documented in this encounter Patient Instructions * Patient Instructions* Nj Wei MD - 03/01/2025 7:07 PM EDT We discussed your heart condition and current symptoms: - You are currently in atrial fibrillation (AFib), an irregular heart rhythm that started within the last 24 hours. This may be contributing to your increased tiredness over the past two days. - AFib can make your heart less efficient, leading to worsening heart failure symptoms, such as fatigue, shortness of breath, and fluid retention. - Your heart muscle function remains severely reduced (ejection fraction 16%), and you have advanced heart failure with kidney and liver dysfunction. These conditions require careful management to maintain your quality of life. We discussed treatment options for your AFib: - You can undergo a cardioversion (a procedure to restore normal heart rhythm) today or wait 1-2 days to see if your heart rhythm returns to normal on its own. - If you choose to wait, please monitor your symptoms closely. If you feel worse or remain in AFib,you may need to return for cardioversion. - Cardioversion is an outpatient procedure that involves IV sedation and a brief electrical shock to restore your heart rhythm. It typically takes 3-4 hours, including observation time. - If you decide to wait, ensure you are near your remote monitoring device so it can transmit your heart rhythm data. You or your family can call the office to check your rhythm status and schedule the procedure if needed. We discussed your medications: - Continue taking Eliquis (2.5 mg twice daily) as prescribed. It is critical to take this medication on time to reduce your risk of stroke. Do not skip doses or adjust the timing without consulting us. - Continue taking mexiletine (150 mg twice daily) for your PVCs (extra heartbeats). If you experience any side effects, such as nausea or rash, please let us know. - Ensure you are taking your potassium supplements as prescribed to maintain normal potassium levels. Do not stop taking them unless directed by your doctor. - Resume taking your vitamin D supplements, as low vitamin D levels can affect your overall health. We discussed lifestyle and symptom management: - Take your medications consistently and at the same time each day to optimize their effectiveness. - Monitor your symptoms, including fatigue, shortness of breath, swelling, and heart palpitations. Notify us if these worsen. - Maintain a balanced diet with adequate protein intake to support your energy levels. Avoid skipping meals, as this can contribute to weakness and fatigue. - Stay hydrated and avoid excessive salt intake to help manage fluid retention. Follow-up instructions: - Contact our office if you decide to proceed with cardioversion in the next 1-2 days. We will schedule the procedure for you. - Follow up with your heart failure specialist, Dr. Kinney, as planned in June. If your symptomsworsen before then, please contact their office for an earlier appointment. - If you experience severe symptoms, such as chest pain, significant shortness of breath, , or dizziness, go to the emergency room immediately. Please let us know if you have any questions or concerns about your care plan. documented in this encounter Progress Notes * Nj Wei MD - 03/01/2025 11:51 AM EDT Images from the original note were not included. [facility] Department of Cardiovascular Medicine SECTION OF CARDIAC PACING and ELECTROPHYSIOLOGY OUTPATIENT VISIT DATE March 01, 2025 OUTPATIENT VISIT TYPE ESTABLISHED PRIMARY CARE PHYSICIAN: Samm Serrano [address] [place] [address] REFERRING PHYSICIAN: Nj Wei [address] [facility] [id number] CHIEF COMPLAINT: PVCs and atrial fibrillation HISTORY OF PRESENT ILLNESS: Mr. Antonio is a 85 year old male who presents today for follow-up visit for device management. He has a past medical history of hypertension, ICM, HFrEF (LVEF 16% - 11/2024), ICM s/p ICD for primary prevention (2018), CAD s/p CABG (2011), Frequent PVC's, severe MR s/p Mitral valve clip (02/19/24 - with residual moderate MR), persistent atrial fibrillation, CVA s/p tPA (2020), COPD, CKD III, carotid stenosis s/p right CEA (2012) and left carotid stenting (03/09/24), LV thrombus, and hypothyroidism. He is an established patient of Dr. Wei, last seen in office in August 2024. He had a holter monitor which showed a 27% burden of PVC's. He was advised following results of the monitor to start Amiodarone 200 mg BID x 6 weeks then decrease to 200 mg daily. Unfortunately he presented to [facility] on 09/29/24 for cardiogenic shock with Myles and acute liver failure. He was admitted from his rehab facility and placed in MICU with cardiogenic shock with echocardiogram showing an LVEF of 10% and acute liver failure thought related to mexiletine and MYLES with hyperkalemia. He was deemed not a liver transplant candidate and metoprolol was given for VT prevention, off mexiletine. He had abedside US guided paracentesis with removal of 6 Liters and started on loop diuretics. He was discharged back to [facility] for further care on 10/17/24. He remains managed with Dr. Kinney with last office visit on 12/21/24 recommending an echocardiogram in 6 months with plan for cardiac rehab. Device check completed today shows an episode of VT terminated with ATP on 02/28/25 - patient reports being asymptomatic. He has a primary complaint of fatigue, finds that he can get short of breath with exertion but due to the physical demand associated with ADL's. He denies abdominal distention, chest pain, cough, edema, PND, lightheadedness or syncope. 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) 09/03/2022 Dyslipidemia Gastrointestinal hemorrhage 05/11/2024 GERD (gastroesophageal reflux disease) Heart failure, acute systolic (HCC) Hypertension Hypothyroid Myocardial infarct, old Occlusion and stenosis of carotid artery without mention of cerebral infarction Prostate cancer ([facility]) 2020 PVC (premature ventricular contraction) PVD (peripheral vascular disease) ([facility]) 11/17/2012 Stroke (cerebrum) ([facility]) 09/03/2022 Systolic heart failure ([facility]) Thyroid disorder 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 kidney disease, unspecified CKD stage, unspecified whether termite control technician insulin use ([facility]) 04/26/2023 Ventricular tachycardia ([facility]) 04/28/2012 PAST SURGICAL HISTORY Procedure Laterality [...] date: 04/28/1972 Quit date: 04/28/1982 Years since quittin.8 Passive exposure: Never Smokeless tobacco: Never Vaping Use Vaping status: Never Used Substance Use Topics Alcohol use: Not Currently Comment: rarely Drug use: Never FAMILY HISTORY Problem Relation Age of Onset other (atrial fibrillation) Mother other (CHF) Mother other (Other) Mother at age 96 Coronary Artery Disease Father Heart Attack Father fatal [place] at age 77 Ischemic Heart Disease Brother CABGx6 first at age 72 No Known Problems Maternal Grandmother No Known Problems Maternal Grandfather No Known Problems Paternal Grandmother No Known Problems Paternal Grandfather No Known Problems Daughter No Known Problems Daughter No Known Problems Daughter other (Other) Other paternal cousin at age 50 of [place] ALLERGIES: ALLERGIES Allergen Reactions Latex Rash Adhesive Tape (Keyanna* Rash MEDICATIONS: dapagliflozin propanediol (FARXIGA) 10 mg tablet Take 1 tablet by mouth daily with breakfast. mexiletine (MEXITIL) 150 mg capsule Take 150 mg by mouth two times a day. metoprolol succinate ER (TOPROL XL) 25 mg 24 hr tablet Take 12.5 mg by mouth once daily. apixaban (ELIQUIS) 2.5 mg tab(s) Take 1 tablet by mouth two times a day. bumetanide (BUMEX) 2 mg tablet Take 2 mg by mouth two times a day. potassium chloride ER (KLOR-CON) 20 mEq tablet Take 20 mEq by mouth once daily. thiamine (VITAMIN B1) 100 mg tablet Take 100 mg by mouth once daily. cetirizine (ZYRTEC) 10 mg tablet Take 1 tablet by mouth once daily as needed. levothyroxine (SYNTHROID) 88 mcg tablet Take 1 tablet by mouth once daily. Rachael Moise RN PHYSICAL EXAMINATION: BP 105/76 Pulse 106 Ht 182.9 cm (6') Wt 78.9 kg (174 lb) BMI 23.60 kg/m?? CARDIOVASCULAR MEDICINE TESTING: Device check 03/01/25: In-Office Device Evaluation OPD with Dr. Wei * Device type: BST dual lead ICD * Presenting Rhythm: AF/VS-AUTO BODY REPAIR ESTIMATOR * Underlying Rhythm: AF with variable ventricular rates * Battery Status: Battery is at 9.5 years. * Arrhythmias: There have been 9 atrial detections since last remote evaluation. Anticoagulants listed: Eliquis * Lead Measurements: RV capture threshold, sensing, and lead impedances reviewed and tested, stablemeasurements per trends * Implant Site/Symptoms: The incision and pocket are pain-free, well healed and without signs of erosion or infection. * Other Diagnostics: *AP 1%, AUTO BODY REPAIR ESTIMATOR <1%, AT/AF burden 1% (however likely higher d/t DDIR programming)* Tachycardia: AF * Stored EGMs are consistent with or suggestive of Atrial Fibrillation, intermittent RVR observed on stored episodes * AT/AF [place]: 1% * OAC: Eliquis Appropriate VT Therapy: Successful * VT episode on 02/28 shows VT in the presence of AF, successfully converted with 1 burst of ventricular ATP. * Total episodes: 1 * Number of ATP therapy: 1 * Number of shocks delivered: 0 * Episode length: 21 seconds * V. rate during episode: 186bpm Echocardiogram 12/08/24: CONCLUSIONS: - Exam indication: Cardiomyopathy - The left ventricle is severely dilated. Left ventricular systolic function is severely decreased. EF = 16 ?? 5% (2D biplane) - The right ventricle is dilated. Right ventricular systolic function is moderately to severely decreased. - Percutaneous [id number] repair of the mitral valve with 1 clip. There is mild (1+) mitral valve regurgitation due to thickened and shortened chords. The peak gradient is 4 mmHg and the mean gradient is 1 mmHg. Todays gradients of 4/1mmHg obtained at HR of 78bpm. - There is moderate (2+) tricuspid valve regurgitation. - Estimated right ventricular systolic pressure is 60 mmHg consistent with moderate pulmonary hypertension. Estimated right atrial pressure is 15 mmHg based on IVC assessment. - There is a patent foramen ovale as detected by Doppler. - Exam was compared with the prior echocardiographic exam performed on 09/23/2024 patient is in [facility] today compred to V-paced last echo PLAN AND RECOMMENDATIONS: I personally interviewed, confirmed and edited the above information as obtained by others. CONTACT INFORMATION: Nj Wei MD EP STAFF ADDENDUM: I have reviewed the above information and examined the patient and confirm the above with the following additions/modifications. HISTORY OF PRESENT ILLNESS: The patient is an 85-year-old male with a history of CAD, status post-CABG, ischemic cardiomyopathy, heart failure symptoms, and frequent PVCs, presenting for follow-up. The patient was initially seen in August 2024, when he was hospitalized for a high burden of PVCs. He was started on amiodarone but developed a rash after two days, leading to discontinuation of the medication. He was then prescribed mexiletine, which he initially tolerated poorly, resulting in liver dysfunction and hypotension. The mexiletine dosage was reduced from 200 mg TID to 150 mg BID, after which his liver function returned to baseline. He continues to take mexiletine but experiences nausea and has difficulty eating, leading to poor nutritional intake and weight loss. He also reports a recent rash, which has since resolved with prednisone but unclear if it is related to Mexiletine He reports persistent fatigue, which fluctuates in severity. He has a history of insomnia for 4-5 years and takes his evening medications late at night, contributing to disrupted sleep. He denies anyrecent episodes of angina but notes occasional leg swelling, which improves with an extra dose of Bumex. He has a history of atrial fibrillation, with a recent episode occurring in the third week of November. He is currently experiencing another episode, which started approximately less than 24 hours ago. He reports increased fatigue over the past two days but denies palpitations, lightheadedness, or dizziness. He has a history of hypokalemia, with a recent potassium level of 3.2 mEq/L. He was taking triamterene and reportedly stopped his potassium supplements for about a week, thinking his levels were stable. He also has a history of low vitamin D levels and has been inconsistent with his supplements. He has a history of coronary artery disease and underwent CABG. He has ischemic cardiomyopathy withsevere LV dysfunction (LVEF 16%) and extensive myocardial scarring from previous MIs. He has a pacemaker and is on anticoagulation therapy with Eliquis 2.5 mg BID. He missed a dose on February 20 but has been otherwise adherent. He lives in [place] and has three daughters who assist with his care. He has a follow-up appointment with his heart failure specialist, Dr. Kinney, in June. PHYSICAL EXAMINATION General: Alert & oriented, no acute distress. Skin: Normal. HEENT: Pupils equal, round. Oral cavity and oropharynx clear. Neck: Supple, no mass. Breast: Deferred. Respiratory: Clear to auscultation bilaterally. Cardiovascular: Jugular venous pressure normal. Irregular rate and rhythm, normal S1 and S2, no murmurs or added sounds. Abdomen: Soft, non-tender, non-distended, no masses palpable, no hepatosplenomegaly, normal bowel sounds. Genitourinary: Deferred. MSK: No joint swelling, erythema, or tenderness. Extremities: No clubbing, cyanosis, or edema. ASSESSMENT/PLAN 1. 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 2. Coronary artery disease involving coronary bypass graft of beaver heart without angina pectoris S/P CABG (coronary artery bypass graft) History of CABG, no current angina reported. 3. Acute on chronic systolic congestive heart failure (HCC) Cardiomyopathy, ischemic Severe heart muscle dysfunction with an ejection fraction of 16%. Recent episodes of atrial fibrillation contributing to increased fatigue and potential worsening of heart failure symptoms. - Continue heart failure medications as prescribed. - Follow-up with Dr. Kinney in June. 4. Frequent PVCs Large burden of PVCs likely associated with myocardial scarring from previous MIs. Currently managed with mexiletine 150 mg BID, reduced from TID due to previous liver dysfunction. - Continue mexiletine 150 mg BID. - Monitor liver function tests regularly - Reports low burden for now symptomatically 5. VT (ventricular tachycardia) ([facility]) History of VT managed with ICD. Previous intolerance to amiodarone due to rash. 6. ICD (implantable cardioverter-defibrillator) discharge ICD in place for VT management. Recent device check showed atrial fibrillation with rates between 105-130 bpm. - Adjusted ICD settings to DDI with a long AV delay to minimize ventricular pacing. 7. 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 kidney disease, unspecified CKD stage, unspecified whether termite control technician insulin use (HCC) Stage 3b chronic kidney disease (HCC) CKD Stage 3b with recent episodes of low potassium levels due to missed doses of potassium supplements. - Reinforce the importance of taking potassium supplements as prescribed. - Monitor renal function and electrolytes regularly. 8. Paroxysmal atrial fibrillation (HCC) Recent onset of atrial fibrillation contributing to increased fatigue. Episodes noted in the last 24-48 hours. - Discussed risks and benefits of cardioversion. - Patient to monitor symptoms and consider cardioversion if AFib persists for more than 2 days. - Educated patient on the importance of regular medication adherence to reduce stroke risk. 9. FDC (current) use of anticoagulants Currently on Eliquis 2.5 mg BID. Missed one dose on February 20. - Reinforce the importance of taking Eliquis as prescribed to minimize stroke risk. - Monitor for any signs of bleeding or adverse effects. I personally interviewed, confirmed and edited the above information as obtained by others. CONTACT INFORMATION: Nj Wei MD Recording using [employer] software for draft documentation of the visit was discussed with the patient/authorized senior outside sales representative; all questions welcomed and answered. Patient/authorized senior outside sales representative agreed to proceed documented in this encounter Plan of Treatment Upcoming Encounters Date Type Department Care Team (Late st Contact Info) Description 06/30/2025 10:00 AM EDT Office Visit Cardiology [address] [place] [address] Isaías Kinney MD [address] [place] [address] DX: Chronic diastolic heart failure documented as of this encounter Goals Goal Patient Goal Type Associated Problems Recent Progress Patient-Stated? 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- Primary Coronary artery disease involving coronary bypass graft of beaver heart without angina pectoris Acute on chronic systolic congestive heart failure (HCC) Acute on chronic systolic heart failure S/P CABG (coronary artery bypass graft) Postsurgical aortocoronary bypass status Cardiomyopathy, ischemic Other specified forms of chronic ischemic heart disease Frequent PVCs Other premature beats VT (ventricular tachycardia) (HCC) Paroxysmal ventricular tachycardia ICD (implantable cardioverter-defibrillator) discharge Observation for other specified suspected conditions 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 kidney disease, unspecified CKD stage, unspecified whether fdc insulin use (HCC) Stage 3b chronic kidney disease (HCC) Paroxysmal atrial fibrillation (HCC) Atrial fibrillation FDC (current) use of anticoagulants Long-term (current) use of anticoagulants documented in this encounter Care Teams Founder And Chief Technical Officer Relationship Specialty Start Date End Date Samm Serrano MD PCP - General Family Medicine 05/30/12 Tom Gonzalez [address] [place] [address] Primary Staff Physician Cardiology 12/02/18 Andreas Pierre MD [address] [place] [address] Primary Staff Physician Cardiology 04/26/23 Virgil Carrillo MD [address] [place] [address] Primary Staff Physician Cardiology 10/29/23 Jethro Mendoza MD [address] [place] [address] Primary Staff Physician Cardiology 12/26/23 Isaías Kinney MD [address] [place] [address] Primary Staff Physician Cardiology 01/10/24 documented as of this encounter
--- OUTSIDE RECORDS SUMMARY | 2025-03-03 09:31 | XMS_ITS | Encounter Summary ---
Author Organization [facility] Address [address] [place] [id number] Care Team Providers Care Lot Worker Name Role Phone Samm Serrano MD Primary Care Provider +-4 Tom Gonzalez Unavailable [phone] Andreas Pierre MD Unavailable Virgil Carrillo MD Unavailable Jethro Mendoza MD Unavailable Carmela Fernandes MD Unavailable [phone] Source Comments In the event this information is protected by the Federal Confidentiality of Alcohol and Drug AbusePatient Records regulations: The Federal rules restrict any use of the information to criminally investigate or prosecute any alcohol or drug abuse patient.[facility] Encounter Details Date Type Department Care Team (Latest Contact Info) Description 03/03/2025 9:31 AM EDT - 03/03/2025 3:24 PM EDT Hospital Encounter [id number] [address] [place] [address] Nj Wei MD [address] [place] [address] Persistent atrial fibrillation (HCC) [I48.19] Discharge Disposition: Home Social History Tobacco Use Types Packs/Day Years Used Date Smoking Tobacco: Former Cigarettes 1 10 0 04/28/1972 - 04/28/1982 Pipe Passive Smoke Exposure: Never Smokeless Tobacco: Never Alcohol Use Standard Drinks/Week Comments Not Currently 0 (1 standard drink = 0.6 oz pur e alcohol) rarely [facility] Utilities Answer Date Recorded In the [...] place to sleep or slept in a nursing home (including now)? No 03/02/2024 Housing Stability Vital Sign Answer Akbar e Recorded In the last 12 months, was t here a time when you were not able to pay the mortgage or rent on time? Yes 07/22/2024 In the past 12 months, how m any times have you moved where you were living? 0 07/22/2024 At any time in the past 12 m [facility], were you homeless or living in a nursing home (including now)? Yes 07/22/2024 Area Deprivation Index Answer Date Rich rded National Score (1-100), lower number is lower ri sk 52 02/05/2024 State Score (1-10), lower number is lower risk 3 02/05/2024 Data from: https://www.neighborhoodatlas.medicine.[facility].edu/. Last address used for calculation [address] [place] [address] [address] 02/05/2024 Sex and Gender Information Value Date Recorded Sex Assigned at Male 02/22/2019 10:48 PM EDT Legal Sex Male 8:07 AM EST Gender Identity Male 02/22/2019 10:48 PM EDT Sexual Orientation Straight 02/22/2019 10 :48 PM EDT documented as of this encounter Last Filed Vital Signs Vital Sign Reading Time Taken Comments Blood Pressure 134/63 03/03/2025 3:00 PM EDT Pulse 57 03/03/2025 3:00 PM EDT Temperature 36.3 C (97.4 F) 03/03/2025 11:01 AM EDT Respiratory Rate 18 03/03/2025 2:07 PM EDT Oxygen Saturation 89% 03/03/2025 3:00 PM EDT Inhaled Oxygen Concentration - - Weight - - Height - - Body Mass Index - - documented in this encounter Functional Status * Are you deaf or do you have serious difficulty hearing? Answer Date of Assessment Author No 03/03/2025 3:03 PM EDT Akosua Ramírez RN * Are you blind or do you have serious difficulty seeing, even when wearing glasses? Answer Date of Assessment Author No 03/03/2025 3:03 PM EDT Akosua Ramírez RN * Do you have serious difficulty walking or climbing stairs? Answer Date of Assessment Author No 03/03/2025 3:03 PM EDT Akosua Ramírez RN * Do you have difficulty dressing or bathing? Answer Date of Assessment Author No 03/03/2025 3:03 PM EDT Akosua Ramírez RN * Because of a physical, mental, or emotional condition, do you have difficulty doing errands alone such as visiting a doctor's office or shopping? Answer Date of Assessment Author No 03/03/2025 3:03 PM EDT Akosua Ramírez RN documented as of this encounter Mental Status * Because of a physical, mental, or emotional condition, do you have serious difficulty concentrating, remembering, or making decisions? Answer Entry Date Author No 03/03/2025 3:03 PM EDT Akosua Ramírez RN documented in this encounter Medications at [...] 10:00 AM EDT Office Visit Cardiology [address] [place] [address] Carmela Fernandes MD [address] [place] [address] DX: Chronic diastolic heart failure Pending Results Name Type Priority Associated Diagnoses Date /Time ECG COMPLETE ECG Routine 03/03/2025 2 :22 PM EDT ECG COMPLETE ECG 03/03/2025 1 0:59 AM EDT Scheduled Orders Name Type Priority Associated Diagnoses Orde r Schedule ECG COMPLETE ECG Routine ONCE for 1 O ccurrences starting 03/03/2025 until 03/03/2025 documented as of this encounter Goals Goal Patient Goal Type Associated Problems Recent Progress Patient-Stated? Author Blood Pressure < 130/80 Blood Pressure 134/63( 025 3:00 PM EDT) Lidia Soto RN documented as of this encounter Procedures Procedure Name Priority Date/Time Associated Diagnosis Comments ECG COMPLETE Routine 03/03/2025 2:22 PM EDT EPS: CARDIOVERSION 03/03/2025 1: 56 PM EDT CARDIOVERSION ELECTIVE ARRHYTHMIA EXTERNAL 03/03/2025 1:48 PM EDT Persistent atrial fibrillation (HCC) COMPREHENSIVE METABOLIC PANEL STAT 03/03/2025 11:03 AM EDT ECG COMPLETE 03/03/2025 10:59 AM EDT documented in this encounter Results * EPS: CARDIOVERSION (03/03/2025 1:56 PM EDT) 03/03/2025 1:56 PM EDT [facility] - 03/03/2025 2:09 PM EDT Final Report Cardiac Electrophysiology Laboratory [address] [place] [address] The entire procedure was performed by the Staff Physician without the assistance of a Fellow. This report has been electronically signed on 03/03/2025 14:09 by SHAWN CAZARES MD Procedure: DC Cardioversion Room: EP Lab 6 Date of service: 03/03/2025 Patient entered lab: 01:48 PM Start Time: 01:56 PM End Time: 01:59 PM Indications for procedure: Atrial fibrillation resulting in hemodynamic compromise or worsening congestive heart failure. Preoperative diagnosis: Atrial fibrillation resulting in hemodynamic compromise or worsening congestive heart failure. Postoperative diagnosis: Atrial fibrillation resulting in hemodynamic compromise or worsening congestive heart failure. Patient History: 85 YO male with ischemic cardiomyopathy, CHF and persistent atrial fibrillation here for cardioversion. Procedure Note: Successful/uncomplicated cardioversion. Summary Findings: The cardioversion was successful. 1. The presenting arrhythmia was atrial fibrillation. 2. Sinus rhythm with a ventricular rate of 87 beats per minute was observed after the procedure. There were no intraprocedural complications or adverse events. Procedure Profile: I/O: 0/0 (mL) Net: 0 mL Deep sedation was provided by Anesthesia personnel and will be documented in their records. Sedative Drugs: Brevital 30 mg IV Specimens removed: None Estimated blood loss: 0 cc Patient Profile: Age: 85 Gender: Male Race: White NYHA Class: III GDMT: Yes, > 3 months LV function: ECHO: Ejection fraction 0.16 [id number] risk score: 5 Congestive heart failure/LV dysfunction: 1 Hypertension: 1 Age >= 75 years: 2 Diabetes mellitus: 0 Stroke, TIA, or thromboembolism: 0 Vascular disease (prior CT/CAD, PAD or aortic plaque): 1 Age 65-74 years: 0 Sex, female: 0 Duration of arrhythmia: 2 weeks Duration of anticoagulation: > 1 year Patient: [id number] JOSÉ MIGUEL ROTH Lab Staff: SHAWN CAZARES MD Lab Fellow: Referring Physician: CARMELA FERNANDES MD us Shawn Cazares MD SCHEDULED PROCEDURES Final R esult [facility] [address] [place] [address] * (ABNORMAL) COMPREHENSIVE METABOLIC PANEL (03/03/2025 11:03 AM EDT) Protein, Total 7.2 6.3 - 8.0 g/dL 03/03/2025 11:40 AM EDT [facility] Albumin 3.9 3.9 - 4.9 g/dL 03/03/2025 11:40 AM EDT [facility] Calcium, Total 9.5 8.5 - 10.2 mg/dL 03/03/2025 11:40 AM EDT [facility] Bilirubin, Total 1.8(H) 0.2 - 1.3 mg/dL 03/03/2025 11:40 AM EDT [facility] Alkaline Phosphatase 125(H) 38 - 113 U/L 03/03/2025 11:40 AM EDT [facility] AST 20 14 - 40 U/L 03/03/2025 11:40 AM [facility] ALT 14 10 - 54 U/L 03/03/2025 11:40 AM [facility] Glucose 106(H) 74 - 99 mg/dL 03/03/2025 11:40 AM [facility] Comment: The [place] Diabetes Association (ADA) provides guidance for cutoff [...] Standards of Medical Care in Diabetes 2016, [employer] Diabetes Association. Diabetes Care. 2016.39(Suppl 1). BUN 59(H) 9 - 24 mg/dL 03/03/2025 11:40 AM [facility] Creatinine 2.46(H) 0.73 - 1.22 mg/dL 03/03/2025 11:40 AM [facility] Sodium 138 136 - 144 mmol/L 03/03/2025 11:40 AM [facility] Potassium 5.4(H) 3.7 - 5.1 mmol/L 03/03/2025 11:40 AM [facility] Chloride 101 98 - 107 mmol/L 03/03/2025 11:40 AM [facility] CO2 24 22 - 30 mmol/L 03/03/2025 11:40 AM [facility] Anion Gap 13 8 - 15 mmol/L 03/03/2025 11:40 AM [facility] Estimated Glomerular Filtration Rate 25(L) >=60 mL/min/1. 73m 03/03/2025 11:40 AM [facility] Comment:Estimated Glomerular Filtration Rate (eGFR) is calculated using the 2020 CKD-EPI creatinine equation. This equation utilizes serum creatinine, sex, and age as parameters. The creatinine assay has traceable calibration to isotope dilution- mass spectrometry. Refer to KDIGO guidelines for clinical interpretation. In patients with unstable renal function, e.g. those with acute kidney injury, the eGFR may not accurately reflect actual GFR. Blood BLOOD SPECIMEN / Unknown Venipuncture / Unknown 03/03/2025 11:03 AM EDT 03/03/2025 11:20 AM EDT us Nj Eriberto [facility] Final Result [facility] [address] [facility] Desk [address] [place] [address], documented in this encounter Visit Diagnoses Not on filedocumented in this encounter Care Teams Lot Worker Relationship Specialty Start Date End Date Samm Serrano MD PCP - General Family Medicine 05/30/12 Tom Gonzalez [address] [place] [address] Primary Staff Physician Cardiology 12/02/18 Andreas Pierre MD [address] [place] [address] Primary Staff Physician Cardiology 04/26/23 Virgil Carrillo MD [address] [place] [address] Primary Staff Physician Cardiology 10/29/23 Jethro Mendoza MD [address] [place] [address] Primary Staff Physician Cardiology 12/26/23 Carmela Fernandes MD [facility] [place] [address] Primary Staff Physician Cardiology 01/10/24 documented as of this encounter
--- OUTSIDE RECORDS SUMMARY | 2025-03-03 12:00 | XMS_ITS | Encounter Summary ---
Author Organization [facility] Address [address] [place] [address] Care Team Providers Care Asbestos Cement Sheet Supervisor Name Role Phone Samm Serrano MD Primary Care Provider +-4 Tom Gonzalez Unavailable [phone] Andreas Pierre MD Unavailable Virgil Carrillo MD Unavailable Jethro Mendoza MD Unavailable Carmela Fernandes MD Unavailable [phone] Source Comments In the event this information is protected by the Federal Confidentiality of Alcohol and Drug AbusePatient Records regulations: The Federal rules restrict any use of the information to criminally investigate or prosecute any alcohol or drug abuse patient.[facility] Encounter Details Date Type Department Care Team (Late st Contact Info) Description 03/03/2025 12:00 PM EDT - 03/03/2025 1:00 PM EDT Surgery HOSP EP Lab [address] [place] [address] Nj Wei MD [address] [place] [address] CARDIOVERSION EXTERNAL ELECTIVE Surgery Details Date/Time Status Location OR Service Patient Class Case Cl ass Case Type Trauma Case? 03/03/2025 12:00 PM Posted EP LAB EP 06 Cardiology Ambulatory Surgery Elective Panel 1 Procedure LRB Anes Op Region Wound Class Comments CARDIOVERSION EXTERNAL ELECTIVE N/A General Surgeon Surgeon Role Service Panel Nj Wei MD Primary Cardiology 1 documented in this encounter Social History Tobacco Use Types Packs/Day Years Used Date Smoking Tobacco: Former Cigarettes 1 10 0 04/28/1972 - 04/28/1982 Pipe Passive Smoke Exposure: Never Smokeless Tobacco: Never Alcohol Use Standard Drinks/Week Comments Not Currently 0 (1 standard drink = 0.6 oz pur e alcohol) rarely [facility]planner Utilities Answer Date Recorded In the past 12 months has e [employer], gas, oil, or water [employer] threatened to shut off services in your [...] place to sleep or slept in a half-way (including now)? No 03/02/2024 Housing Stability Vital Sign Answer Akbar e Recorded In the last 12 months, was t here a time when you were not able to pay the mortgage or rent on time? Yes 07/22/2024 In the past 12 months, how m any times have you moved where you were living? 0 07/22/2024 At any time in the past 12 m [facility], were you homeless or living in a half-way (including now)? Yes 07/22/2024 Area Deprivation Index Answer Date Rich rded National Score (1-100), lower number is lower ri sk 52 02/05/2024 State Score (1-10), lower number is lower risk 3 02/05/2024 Data from: https://www.neighborhoodatlas.[facility].edu/. Last address used for calculation [address] [place] [address] [address] 02/05/2024 Sex and Gender Information Value Date Recorded Sex Assigned at Male 02/22/2019 10:48 PM EDT Legal Sex Male 8:07 AM EST Gender Identity Male 02/22/2019 10:48 PM EDT Sexual Orientation Straight 02/22/2019 10 :48 PM EDT documented as of this encounter Last Filed Vital Signs Vital Sign Reading Time Taken Comments Blood Pressure 116/80 03/03/2025 11:01 AM EDT Pulse 128 03/03/2025 11:01 AM EDT Temperature 36.3 C (97.4 F) 03/03/2025 11:01 AM EDT Respiratory Rate - - Oxygen Saturation 95% 03/03/2025 11:01 AM EDT Inhaled Oxygen Concentration - - Weight - - Height - - Body Mass Index - - documented in this encounter Functional Status * Are you deaf or do you have serious difficulty hearing? Answer Date of Assessment Author No 03/03/2025 3:03 PM EDT Akosua Ramírez, RN * Are you blind or do [...] 10:00 AM EDT Office Visit Cardiology [address] [place] [address] Carmela Fernandes MD [address] [place], [place] [id number] DX: Chronic diastolic heart failure Pending Results [...] 1:56 PM EDT) 03/03/2025 1:56 PM EDT [facility] - 03/03/2025 2:09 PM EDT Final Report Cardiac Electrophysiology Laboratory [address] [place], [place] [id number] The entire procedure was performed by the [...] months LV function: ECHO: Ejection fraction 0.16 [id number] risk score: 5 Congestive heart failure/LV dysfunction: 1 Hypertension: 1 Age >= 75 years: 2 Diabetes mellitus: 0 Stroke, TIA, or thromboembolism: 0 Vascular disease (prior PR/CAD, PAD or aortic plaque): 1 Age 65-74 years: 0 Sex, female: 0 Duration of arrhythmia: 2 weeks Duration of anticoagulation: > 1 year Patient: [id number] JOSÉ MIG[facility]EL [facility] Lab Staff: SHAWN CAZARES MD Lab Fellow: Referring Physician: CARMELA FERNANDES MD us Shawn Cazares MD SCHEDULED PROCEDURES Final R esult [facility] [address] [place] [address] * (ABNORMAL) COMPREHENSIVE METABOLIC PANEL (03/03/2025 11:03 AM EDT) Pathologist [facility] Protein, Total 7.2 6.3 - 8.0 g/dL 03/03/2025 11:40 AM EDT [facility] Albumin 3.9 3.9 - 4.9 g/dL 03/03/2025 11:40 AM EDT [facility] Calcium, Total 9.5 8.5 - 10.2 mg/dL 03/03/2025 11:40 AM EDT [facility] Bilirubin, Total 1.8(H) 0.2 - 1.3 mg/dL 03/03/2025 11:40 AM [facility] Alkaline Phosphatase 125(H) 38 - 113 U/L 03/03/2025 11:40 AM [facility] AST 20 14 - 40 U/L 03/03/2025 11:40 AM [facility] ALT 14 10 - 54 U/L 03/03/2025 11:40 AM [facility] Glucose 106(H) 74 - 99 mg/dL 03/03/2025 11:40 AM [facility] Comment: The [place] Diabetes Association (ADA) provides guidance for cutoff [...] Standards of Medical Care in Diabetes 2016, [place] Diabetes Association. Diabetes Care. 2016.39(Suppl 1). BUN 59(H) 9 - 24 mg/dL 03/03/2025 11:40 AM [facility] Creatinine 2.46(H) 0.73 - 1.22 mg/dL 03/03/2025 11:40 AM [facility] Sodium 138 136 - 144 mmol/L 03/03/2025 11:40 AM [facility] Potassium 5.4(H) 3.7 - 5.1 mmol/L 03/03/2025 11:40 AM [facility] Chloride 101 98 - 107 mmol/L 03/03/2025 11:40 AM [facility] CO2 24 22 - 30 mmol/L 03/03/2025 11:40 AM [facility] Anion Gap 13 8 - 15 mmol/L 03/03/2025 11:40 AM [facility] Estimated Glomerular Filtration Rate 25(L) >=60 mL/min/1. 73m 03/03/2025 11:40 AM EDT [facility] Comment:Estimated Glomerular Filtration Rate (eGFR) [...] EDT 03/03/2025 11:20 AM EDT us Nj Wei MD LABORATORY Final Result [facility] [address] [facility] Desk [address] documented in this encounter Visit Diagnoses Diagnosis Persistent atrial fibrillation (HCC) Atrial fibrillation documented in this encounter Care Teams Asbestos Cement Sheet Supervisor Relationship Specialty Start Date End Date Samm Serrano MD PCP - General Family Medicine 05/30/12 Tom Gonzalez [address] [place] [address] Primary Staff Physician Cardiology 12/02/18 Andreas Pierre MD [address] [place] [address] Primary Staff Physician Cardiology 04/26/23 Virgil Carrillo MD [address] [place] [address] Primary Staff Physician Cardiology 10/29/23 Jethro Mendoza MD [facility] [place] [address] Primary Staff Physician Cardiology 12/26/23 Carmela Fernandes MD [address] [place] [address] Primary Staff Physician Cardiology 01/10/24 documented as of this encounter
--- OUTSIDE RECORDS SUMMARY | 2025-03-03 13:49 | XMS_ITS | Encounter Summary ---
Author Organization [facility] Address [address] [place] [address] Care Team Providers Care Marketing Strategy Manager Name Role Phone Samm Serrano MD Primary Care Provider +-4 Tom Gnozalez Unavailable [phone] Andreas Pierre MD Unavailable Virgil Carrillo MD Unavailable Jethro Mendoza MD Unavailable Isaías Kinney MD Unavailable [phone] Source Comments In the event this information is protected by the Federal Confidentiality of Alcohol and Drug AbusePatient Records regulations: The Federal rules restrict any use of the information to criminally investigate or prosecute any alcohol or drug abuse patient.[facility] Encounter Details Date Type Department Care Team (Late st Contact Info) Description 03/03/2025 1:49 PM EDT Anesthesia Event HOSP EP Lab [address] [place] [address] Aravind Brumfield MD [address] [place] [address] Ashley Diamond, PLY BANDER.PROJECT MANAGER/DESIGN MANAGER [address] [place] [address] Anesthesia Record Procedure Summary Procedure Name Responsible Anesthesiologist Anesthesia Start Time Anesthesia Stop Time CARDIOVERSION EXTERNAL ELECTIVE Aravind Brumfield MD 03/03/25 1349 03/03/25 1407 Events Date Time Event Comment 03/03/2025 1349 An Start I have re-evalu ated the patient immediately prior to induction. 1349 An Start Data 1352 1357 An Induction I have re-evalu ated the patient immediately prior to induction. 1359 Anesthesia Ready 1359 DCCV 1402 Emerge 1407 an stop data 1407 Handoff to RN I completed my handoff to the receiving nurse during which we: 1. Identified the patient 2. Identified the responsible provider 3. Reviewed the pertinent medical history 4. Discussed the surgical course 5. Reviewed intra-op anesthesia management and issues during anesthesia 6. Set expectations for post-procedure period 7. Allowed opportunity for questions and acknowledgement of understanding. 1407 An Stop Meds Name Total methohexital 30 mg PHENYLephrine 0.1 mg/mL 150 mcg * Agents No agents on file. * Blood No blood administrations on file. Lines, Drains, and Airways Type Details Placement Removal Wound 02/18/24; 1123; [place]; Wrist; Right 02/18/24 1123 by Azam Arizmendi RN Wound 02/18/24; 1127; [place]; Groin; Right 02/18/24 1127 by Azam Arizmendi RN Wound 03/04/24; 1900; N; Puncture; Groin; Left 03/04/24 1900 by Cary Chew RN Wound 03/04/24; 1900; N; Puncture; Wrist; Left 03/04/24 1900 by Cary Chew, bankruptcy processor 05/14/24; 1556; O[place] r; Elbow; Right; SCABBED CUT UPPER ARM ABOVE ELBOW, SCABBED CUT BELOW ELBOW 05/14/24 1556 by Mattie Blood RN PIV 03/03/25; 1125; Larry [facility]; Short; Left; Forearm; 22 Gauge; 03/03/25; 1824 03/03/25 1125 by Marce Terry RN 03/03/25 1824 by Stu Wu In documented in this encounter Social History Tobacco Use Types Packs/Day Years Used Date Smoking Tobacco: Former Cigarettes 1 10 0 04/28/1972 - 04/28/1982 Pipe Passive Smoke Exposure: Never Smokeless Tobacco: Never Alcohol Use Standard Drinks/Week Comments Not Currently 0 (1 standard drink = 0.6 oz pur e alcohol) rarely [facility] Utilities Answer Date Recorded In the past [...] place to sleep or slept in a senior living (including now)? No 03/02/2024 Housing Stability Vital Sign Answer Akbar e Recorded In the last 12 months, was t here a time when you were not able to pay the mortgage or rent on time? Yes 07/22/2024 In the past 12 months, how m any times have you moved where you were living? 0 07/22/2024 At any time in the past 12 m [facility], were you homeless or living in a senior living (including now)? Yes 07/22/2024 Area Deprivation Index Answer Date Rich rded National Score (1-100), lower number is lower ri sk 52 02/05/2024 State Score (1-10), lower number is lower risk 3 02/05/2024 Data from: https://www.neighborhoodatlas.medicine.[facility].edu/. Last address used for calculation [address] [place] [address] [address] 02/05/2024 Sex and Gender Information Value Date Recorded Sex Assigned at Male 02/22/2019 10:48 PM EDT Legal Sex Male 8:07 AM EST Gender Identity Male 02/22/2019 10:48 PM EDT Sexual Orientation Straight 02/22/2019 10 :48 PM EDT documented as of this encounter Last Filed Vital Signs Vital Sign Reading Time Taken Comments Blood Pressure 123/70 03/03/2025 2:04 PM EDT Pulse 82 03/03/2025 2:05 PM EDT Temperature - - Respiratory Rate - - Oxygen Saturation 89% 03/03/2025 2:05 PM EDT Inhaled Oxygen Concentration - - [...] Akosua Ramírez RN documented in this encounter Procedure Notes * Aravind Brumfield MD - 03/04/2025 11:47 AM EDT POST ANESTHESIA EVALUATION NOTE : 1940 Procedure Summary Date: 03/03/25 Room / Location: [address] [facility] Anesthesia Start: 1349 Anesthesia Stop: 1407 Procedure: CARDIOVERSION EXTERNAL ELECTIVE Diagnosis: Persistent atrial fibrillation (HCC) (Persistent atrial fibrillation (HCC) [I48.19]) Surgeons: Nj Wei MD Responsible Provider: Aravind Brumfield MD Anesthesia Type: general ASA Status: 4 Anesthesia Type: general Airway Type: anesthesia mask Last Vitals Vitals Value Taken Time BP 134/63 03/03/25 1500 Temp 03/04/25 1147 Pulse 57 03/03/25 1500 Resp 16 03/04/25 1147 SpO2 89 % 03/03/25 1500 Post Anesthesia Patient Status Patient Evaluation: bedside. Neurological Status: aware and responsive. Pulmonary Status: breathing comfortably on supplemental oxygen Airway Control: returned to baseline unsupported. Cardiovascular Status: stable. Pain Management: clinically adequate Postoperative Hydration: acceptable. Intraoperative Events: no significant anesthesia events Recommendation: continue current plan of care. Anesthesia Observations No Documentation SIGNATURE: Aravind Brumfield MD PATIENT NAME: José Miguel Antonio Jr. DATE: March 04, 2025 TIME: 11:47 AM CSN: [id number] * Aravind Brumfield MD - 03/03/2025 1:52 PM EDT ANESTHESIOLOGY DAY OF SURGERY NOTE : 1940 Procedure Information Anesthesia Start Date/Time: 03/03/25 1349 Procedure: CARDIOVERSION EXTERNAL ELECTIVE Location: [address] [facility] Surgeons: Nj Wei MD Estimated body mass index is 23.6 kg/m?? as calculated from the following: Height as of 03/01/25: 182.9 cm (6'). Weight as of 03/01/25: 78.9 kg (174 lb). Most recent hematocrit and potassium results: Hematocrit 32.2 09/25/2024 Potassium 5.4 03/03/2025 Relevant Problems CARDIO (+) Acute on chronic systolic congestive heart failure (HCC) (+) Amaurosis fugax (+) Atherosclerotic heart disease of [place] coronary artery with other forms of angina pectoris (+) Atrial fibrillation (HCC) (+) Carotid stenosis, asymptomatic, bilateral (+) Carotid stenosis, 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, left (+) Coronary artery disease involving coronary bypass graft of [place] heart without angina pectoris (+) Frequent PVCs (+) Moderate mitral regurgitation (+) Non-rheumatic mitral regurgitation (+) Occlusion and stenosis of carotid artery without mention of cerebral infarction (+) S/P CABG (coronary artery bypass graft) ENDO (+) Acquired hypothyroidism -RENAL (+) Acute renal failure (+) Stage 3b chronic kidney disease ([facility]) (+) 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 kidney disease, unspecified CKD stage, unspecified whether terminal operations supervisor insulin use (HCC) NEURO-PSYCH (+) Amaurosis fugax (+) Stroke (cerebrum) ([facility]) (+) TIA (transient ischemic attack) PULMONARY (+) Dyspnea, unspecified I - PHYSICAL EVALUATION AIRWAY Patient intubated: No. Tracheostomy tube not present Mallampati: III. TM distance: >3 FB. Neck ROM: full ROM without neurological symptoms. Mouth opening: adequate. Short neck: no. Thick neck: no II - ANESTHESIA PLAN ASA Score: 4 Anesthetic Plan: general Airway type: anesthesia mask Beta Gabby Monitoring Plan Monitoring plan: standard ASA. Post Procedure Analgesic Plan Postoperative analgesic plan: parenteral or oral opioids. Informed Consent Anesthetic risks, benefits, alternatives, personnel and consent discussed: yes. Patient / Responsible Libertarian agrees to proceed: yes Patient / Surrogate agrees to blood products: blood products not planned Vitals Value Taken Time BP 116/80 03/03/25 1101 Pulse 128 03/03/25 1101 Resp Temp 36.3 ??C (97.4 ??F) 03/03/25 1101 SpO2 95 % 03/03/25 1101 No current facility-administered medications on file as of 03/03/2025. Outpatient Medications as of 03/03/2025 Medication Sig ??? apixaban (ELIQUIS) 2.5 mg tab(s) Take 1 tablet by mouth two times a day. ??? dapagliflozin propanediol (FARXIGA) 10 mg tablet Take 1 tablet by mouth daily with breakfast. ??? mexiletine (MEXITIL) 150 mg capsule Take 150 mg by mouth two times a day. ??? metoprolol succinate ER (TOPROL XL) 25 mg 24 hr tablet Take 12.5 mg by mouth once daily. ??? bumetanide (BUMEX) 2 mg tablet Take 2 mg by mouth two times a day. ??? potassium chloride ER (KLOR-CON) 20 mEq tablet Take 20 mEq by mouth once daily. ??? thiamine (VITAMIN B1) 100 mg tablet Take 100 mg by mouth once daily. ??? cetirizine (ZYRTEC) 10 mg tablet Take 1 tablet by mouth once daily as needed. I have interviewed and examined the patient. I have reviewed the medical record and/or the pre-anesthesia evaluation, pertinent labs, and test results. This contains updated information obtained within 48 hours of Surgery/Procedure. SIGNATURE: Aravind Brumfield MD PATIENT NAME: José Miguel Antonio Jr. DATE: March 03, 2025 TIME: 1:52 PM CSN: [id number] documented in this encounter Plan of Treatment Upcoming Encounters Date Type Department Care Team (Late st Contact Info) Description 06/30/2025 10:00 AM EDT Office Visit Cardiology [address] [place] [address] Isaías Kinney MD [address] [place] [address] DX: Chronic diastolic heart failure documented as of this encounter Goals Goal Patient Goal Type Associated Problems Recent Progress Patient-Stated? Author Blood Pressure < 130/80 Blood Pressure 134/63( 025 3:00 PM EDT) Lidia Soto RN documented as of this encounter Visit Diagnoses Not on filedocumented in this encounter Administered Medications Inactive Administered Medications - up to 3 most recent administrations Medication Order MAR Action Action Date Dose Rate Site methohexital injection (BREVITAL) INTRAVENOUS, NEEDED, Starting on Sat03/03/25 at 1357, Until Sat03/03/25 at 1407, Anesthesia Intraprocedure Given 03/03/2025 1:57 PM EDT 30 mg PHENYLephrine injection INTRAVENOUS, NEEDED, Starting on Sat03/03/25 at 1357, Until Sat03/03/25 at 1407, Anesthesia Intraprocedure Given 03/03/2025 1:57 PM EDT 150 mcg documented in this encounter Care Teams Marketing Strategy Manager Relationship Specialty Start Date End Date Samm Serrano MD PCP - General Family Medicine 05/30/12 Tom Gonzalez [address] [place] [address] Primary Staff Physician Cardiology 12/02/18 Andreas Pierre MD [address] [place] [address] Primary Staff Physician Cardiology 04/26/23 Virgil Carrillo MD [address] [place] [address] Primary Staff Physician Cardiology 10/29/23 Jethro Mendoza MD [address] [place] [address] Primary Staff Physician Cardiology 12/26/23 Isaías Kinney MD [address] [place] [address] Primary Staff Physician Cardiology 01/10/24 documented as of this encounter
[2025-03-04] VITALS (10 sets, daily range): BP systolic 103–120; BP diastolic 67–79; PULSE 63–70; TEMP 35.9–36.4; O2SAT 90–94; BMI 23.9
--- OUTSIDE RECORDS SUMMARY | 2025-03-04 10:49 | XMS_ITS ---
Author Organization [facility] [place] Address [address] [place] [address] Care Team Providers Care Lime Trimmer Name Role Phone Sesar Serrano Primary Care Provider REASON FOR VISIT HH Sent to ER Encounters Encounter Location Date Provider Diagnosis [facility] [address] [place] [address] 03/04/2025 Sesar Serrano Plan Of Treatment No Information Progress Notes * José Miguel ROTH LDOB: [birth year] (85 yo M)Acc No.[id number]:03/04/2025 Patient: Nona José Miguel SAEZ :1940 A ge:85 Y S ex:Male Address:[address] [place] [address], [place], [address] * true * Date: Generated for Tripi ng/Fatommyg/eTransmitting on: 0 03/04/2025 03:18 PM EDT
--- OUTSIDE RECORDS SUMMARY | 2025-03-04 14:30 | XMS_ITS | Encounter Summary ---
Author Organization [facility] Address [address] [place] [address] Care Team Providers Care Manager Quantitative Name Role Phone Samm Serrano MD Primary Care Provider +4 Tom Gonzalez Unavailable [phone] Andreas Pierre MD Unavailable Virgil Carrillo MD Unavailable Jethro Mendoza MD Unavailable Isaías Kinney MD Unavailable [phone] Source Comments In the event this information is protected by the Federal Confidentiality of Alcohol and Drug AbusePatient Records regulations: The Federal rules restrict any use of the information to criminally investigate or prosecute any alcohol or drug abuse patient.[facility] Reason for Referral * Diagnostic Procedure Only (Routine) - New Request Specialty Diagnoses / Procedures Referred By Contac t Referred To Contact [facility] Diagnoses Carotid stenosis, asymptomatic, bilateral Procedures US CAROTID BILATERAL Tuyet Rodrigues APRN.CONDITIONER TUMBLER OPERATOR [address] [place] [address] Phone: tel: fax: [place] [phone] Referral ID Status Reason Start Date Expiration Date Visits Requested Visits Authorized [id number] New Request Auto-Generat ed Referral 03/04/2026 04/03/2026 1 1 Encounter Details Date Type Department Care Team (Latest Contact Info) Description 03/04/2025 2:30 PM EDT [facility] [address] [place] [id number] Tuyet Rodrigues APRN.CONDITIONER TUMBLER OPERATOR [address] [place] [address] Amaurosis fugax (Primary Dx); Carotid stenosis, asymptomatic, bilateral; Atrial fibrillation, unspecified type (HCC); Mixed hyperlipidemia; Essential hypertension Social History Tobacco Use Types Packs/Day Years Used Date Smoking Tobacco: Former Cigarettes 1 10 0 04/28/1972 - 04/28/1982 Pipe Passive Smoke Exposure: Never Smokeless Tobacco: Never Alcohol Use Standard Drinks/Week Comments Not Currently 0 (1 standard drink = 0.6 oz pur e alcohol) rarely [facility] Utilities Answer Date Recorded In the past 12 months has [employer], oil, or [employer] threatened to shut off services in your [...] place to sleep or slept in a assisted (including now)? No 03/02/2024 Housing Stability Vital Sign Answer Akbar e Recorded In the last 12 months, was t here a time when you were not able to pay the mortgage or rent on time? Yes 07/22/2024 In the past 12 months, how m any times have you moved where you were living? 0 07/22/2024 At any time in the past 12 m [facility], were you homeless or living in a assisted (including now)? Yes 07/22/2024 Area Deprivation Index Answer Date Rich rded National Score (1-100), lower number is lower ri sk 52 02/05/2024 State Score (1-10), lower number is lower risk 3 02/05/2024 Data from: https://www.neighborhoodatlas.medicine.[facility].edu/. Last address used for calculation [address] [place] [address] [address] 02/05/2024 Sex and Gender Information [...] of Assessment Author No 03/03/2025 3:03 PM EDAkosua Hamilton RN documented as of this encounter Mental Status * Because of a physical, mental, or emotional condition, do you have serious difficulty concentrating, remembering, or making decisions? Answer Entry Date Author No 03/03/2025 3:03 PM EDAkosua Hamilton RN documented in this encounter Progress Notes * Tuyet Rodrigues APRN.CONDITIONER TUMBLER OPERATOR - 03/04/2025 2:30 PM EDT [facility] Telephone call I called and spoke with patient's daughter, Charu, to discuss results. She reported that her father was not present as it was recommended to take him to ER by home health RN for potential fluid overload. We discussed ultrasound results and that he should also be on baby aspirin due to presence of carotid stent. Repeat CUS in 1 year. IMPRESSION 02/26/24 Transient flashing lights and vision loss I the left eye lasting about 2-3 minutes with full resolution. Vessel imaging significant for LICA stenosis 99 %. 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 S/p LICA stent placed. DAPT with Aspirin 325 mg and Plavix 75 mg x4 weeks and Xarelto held. Completed DAPT. Per daughter, patient is only on eliquis and not on aspirin. Atrial fibrillation, eliquis 2.5 mg BID, s/p cardioversion 03/03/25 Hyperlipidemia, LDL 75 Hypertension, blood pressure controlled PLAN Resume aspirin 81mg daily and continue eliquis 5mg BID Continue Atorvastatin for secondary stroke prevention and LDL goal below 70. Continue monitoring blood pressure for goal below 130/80. CUS in 1 year and follow up afterwards I spent a total of 8 minutes on the date of service which included preparing to see the patient, completing clinical documentation, obtaining and/or reviewing separately obtained history, performing a medically appropriate examination, counseling and educating the patient/family/caregiver, orderingmedications, tests, or procedures, communicating with other HCPs (not separately reported), independently interpreting results (not separately reported), communicating results to the patient/family/caregiver, and care coordination (not separately reported) SIGNATURE Tuyet Rodrigues APRN.CNP documented in this encounter Plan of Treatment Upcoming Encounters Date Type Department Care Team (Late st Contact Info) Description 06/30/2025 10:00 AM EDT Office Visit Cardiology [address] [place] [address] Isaías Kinney MD [address] [place] [address] DX: Chronic diastolic heart failure Scheduled Orders Name Type Priority Associated Diagnoses Orde r Schedule US CAROTID BILATERAL Radiology Routine Carotid stenosis, asymptomatic, bilateral Expected: 03/04/2026, Expires: 04/03/2026 documented as of this encounter Goals Goal Patient Goal Type Associated Problems Recent Progress Patient-Stated? Author Blood Pressure < 130/80 Blood Pressure 134/63( 025 3:00 PM EDT) No Lidia Lo, ARIES documented as of this encounter Visit Diagnoses Diagnosis 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 Carotid stenosis, asymptomatic, bilateral Atrial fibrillation, unspecified type (HCC) Mixed hyperlipidemia Essential hypertension Unspecified essential hypertension documented in this encounter Care Teams Manager Quantitative Relationship Specialty Start Date End Date Samm Serrano MD PCP - General Family Medicine 05/30/12 Tom Gonzalez [address] [place] [address] Primary Staff Physician Cardiology 12/02/18 Andreas Pierre MD [address] [place] [address] Primary Staff Physician Cardiology 04/26/23 Virgil Carrillo MD [address] [place] [address] Primary Staff Physician Cardiology 10/29/23 Jethro Mendoza MD [address] [place] [address] Primary Staff Physician Cardiology 12/26/23 Isaías Kinney MD [address] [place] [address] Primary Staff Physician Cardiology 01/10/24 documented as of this encounter
--- OUTSIDE RECORDS SUMMARY | 2025-03-04 15:18 | XMS_ITS | Encounter Summary ---
Author Organization [facility] Address [address] [place] [address] Care Team Providers Care Mica Plate Layer Hand Name Role Phone Samm Serrano MD Primary Care Provider +-4 Tom Gonzalez Unavailable [phone] Andreas Pierre MD Unavailable Virgil Carrillo MD Unavailable Jethro Mendoza MD Unavailable Isaías Kinney MD Unavailable [phone] Source Comments In the event this information is protected by the Federal Confidentiality of Alcohol and Drug AbusePatient Records regulations: The Federal rules restrict any use of the information to criminally investigate or prosecute any alcohol or drug abuse patient.[facility] Encounter Details Date Type Department Care Team (Late st Contact Info) Description 08/23/2022 [place] [address] Provider, [facility] Social History Tobacco Use Types Packs/Day Years Used Date Smoking Tobacco: Former Cigarettes 1 10 0 04/28/1972 - 04/28/1982 Pipe Smokeless Tobacco: Never Alcohol Use Standard Drinks/Week Comments Yes 0 (1 standard drink = 0.6 oz pur e alcohol) occassional AUDIT-C Answer Date Recorded Q1: How often do you have a drink containing alc ohol? Monthly or less 04/15/2020 Q2: How many drinks containi ng alcohol do you have on a typical day when you are drinking? 1 or 2 04/15/2020 Frequency of Binge Drinking Not on file 03/18 PHQ-2 Answer Date Recorded PHQ2 Score 0 03/24/2019 Area Deprivation Index Answer Date Rich rded National Score (1-100), lower number is lower ri sk 53 04/26/2022 State Score (1-10), lower number is lower risk N ot on file 04/26/2022 Data from: https://www.neighborhoodatlas.medicine.[facility].edu/. Last address used for calculation [address] 04/26/2022 Sex and Gender Information Value Date Recorded Sex Assigned at Male 02/22/2019 10:48 PM EDT Legal Sex Male 8:07 AM EST Gender Identity Male 02/22/2019 10:48 PM EDT Sexual Orientation Straight 02/22/2019 10 :48 PM EDT documented as of this encounter Functional Status * Are you deaf or do you have serious difficulty hearing? Answer Date of Assessment Author No 03/25/2019 11:00 AM Jia Carlson)ARIES * Are you blind or do you have serious difficulty seeing, even when wearing glasses? Answer Date of Assessment Author No 03/25/2019 11:00 AM Jia Carlson)ARIES * Do you have serious difficulty walking or climbing stairs? Answer Date of Assessment Author No 03/25/2019 11:00 AM Jia Carlson)ARIES * Do you have difficulty dressing or bathing? Answer Date of Assessment Author No 03/25/2019 11:00 AM Jia Carlson)ARIES * Because of a physical, mental, or emotional condition, do you have difficulty doing errands alone such as visiting a doctor's office or shopping? Answer Date of Assessment Author No 03/25/2019 11:00 AM EDT Jia Rios)ARIES documented as of this encounter Mental Status * Because of a physical, mental, or emotional condition, do you have serious difficulty concentrating, remembering, or making decisions? Answer Entry Date Author No 03/25/2019 11:00 AM EDT Jia Rios RN (Hist) documented in this encounter Plan of Treatment Upcoming Encounters Date Type Department Care Team (Late st Contact Info) Description 06/30/2025 10:00 AM EDT Office Visit Cardiology [address] [place] [address] Isaías Kinney MD [address] [place] [address] DX: Chronic diastolic heart failure documented as of this encounter Visit Diagnoses Not on filedocumented in this encounter Care Teams Mica Plate Layer Hand Relationship Specialty Start Date End Date Samm Serrano MD PCP - General Family Medicine 05/30/12 Tom Gonzalez [address] [place] [address] Primary Staff Physician Cardiology 12/02/18 Andreas Pierre MD [address] [place] [id number] Primary Staff Physician Cardiology 04/26/23 Virgil Carrillo MD [address] [place] [address] Primary Staff Physician Cardiology 10/29/23 Jethro Mendoza MD [address] [place] [address] Primary Staff Physician Cardiology 12/26/23 Isaías Kinney MD [address] [place] [address] Primary Staff Physician Cardiology 01/10/24 documented as of this encounter
--- OUTSIDE RECORDS SUMMARY | 2025-03-04 15:18 | XMS_ITS | Clinical Summary ---
Author Organization [facility] Address [address] [place] [address] Care Team Providers Care Flatwork Folder Name Role Phone Sesar Serrano Primary Care Provider [phone] Allergies Active Allergy Reactions Criticality Noted Date Comments Adhesive 05/16/2024 Latex Other (See Comments),Rash Low 03/13/2019 Medications acetaminophen (TYLENOL) 325 MG tablet Take 2 tablets (650 mg total) by mouth every 6 (six) hours as needed for Temp > or equal to 101F (38.3C), mild pain or headaches. 5 Active bumetanide (BUMEX) 2 MG tablet Take 1 tablet (2 mg total) by mouth 2 (two) times a day diuretic. 5 Active calcium carbonate (TUMS) 500 MG chewable tablet Chew 1 tablet (500 mg total) 3 (three) times a day as needed for indigestion or heartburn. 5 Active midodrine (PROAMATINE) 5 MG tablet Take 1 tablet (5 mg total) by mouth 3 (three) times a day as needed (for SBP <100). 5 Active Polyvinyl Alcohol-Povidon e 5-6 MG/ML solution ophthalmic solution Administer 1 drop into both eyes every 2 (two) hours as needed (dry eyes). 5 Active levothyroxine (SYNTHROID) 88 MCG tablet Take 1 tablet (88 mcg total) by mouth Daily at 6am. To be given before breakfast. Pt to take it on empty stomach. 5 Active metoprolol succinate XL (TOPROL-XL) 25 MG 24 hr tablet Take 0.5 tablets (12.5 mg total) by mouth in the morning. Hold for SBP<110 and HR<60. Active Active Problems Problem Noted Date Diagnosed Date Dyspepsia 09/22/2024 Metabolic acidosis 09/22/2024 Hyponatremia 09/22/2024 Taste sense altered 09/22/2024 Finding of cardiovascular device 09/18/2024 Ventricular tachycardia 09/17/2024 Anemia 05/08/2024 Gastro-esophageal reflux disease without esophag itis 05/08/2024 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 disease, or unspecified chronic kidney disease 05/08/2024 Spinal stenosis, lumbar jose on without neurogenic claudication 05/08/2024 History of repair of mitral valve 05/07/2024 Ischemic myocardial dysfunction 05/07/2024 Stage 3b chronic kidney disease 01/10/2024 Chronic obstructive pulmonary disease 11/18/2023 Bilateral stenosis of carotid arteries 2 Acquired hypothyroidism 05/23/2022 Automatic implantable cardiac defibrillator in s itu 05/23/2022 Chronic kidney disease 05/23/2022 Acute on chronic combined sy stolic and diastolic congestive heart failure 05/23/2022 Iron deficiency anemia 05/23/2022 Recurrent major depression 05/23/2022 Primary hypertension 05/23/2022 Personal history of transien t ischemic attack (TIA), and cerebral infarction without residual deficits 05/23/2022 Arteriosclerosis of coronary artery bypass graft 11/17/2012 Peripheral vascular disease 11/17/2012 Overview (10/16/2024): History: Critical stenosis of Rt ICA s/p Rt CEA 06/2012 ICA 60-79% stenosis Assessment: Currently asymptomatic. Plan: Aggressive risk factor management. See CAD section. History of coronary artery bypass grafting 06/17 Atrial fibrillation 05/03/2012 Overview (10/16/2024): Acute. Stable. Developed SVT day of surgery converted to SR on IV Amiodarone. Currently SR. Continue BB and PO Amio Taper. Hyperlipidemia 04/28/2012 Overview (10/16/2024): Chronic. Stable. No meds preop. Had not seen physician in many years prior to surgery. LDL on admission 150. Started on lipitor 80mg postop for STEMI on admission. LFTs slightly up. No complaints. Continue. Family History Medical History Relation Name Comments Coronary artery disease Brother Coronary artery disease Father Relation Name Status Comments Brother Father Social History Tobacco Use Types Packs/Day Years Used Date Smoking Tobacco: Former Cigarettes Smokeless Tobacco: Never Tobacco Cessation:Counseling Given: Not Answered Alcohol Use Standard Drinks/Week Comments Not Currently 0 (1 standard drink = 0.6 oz pur e alcohol) [facility] Utilities Answer Date Recorded In the past 12 months has [employer] electric, gas, oil, or water [employer] threatened to shut off services in your home? No 11/03/2024 Social Connection and Isolat ion Panel [NHANES] Answer Date Recorded In a typical week, how many times do you talk on the phone with family, friends, or neighbors? More than three times a week 11/03/2024 How often do you get togethe r with friends or relatives? More than three times a week 11/03/2024 How often do you attend chur ch or adventist services? More than 4 times per year 11/03/2024 Do you belong to any clubs o r organizations such as nondenominational groups, unions, fraternal or athletic groups, or school groups? No 11/03/2024 How often do you attend meet ings of the clubs or organizations you belong to? Never 11/03/2024 Are you , , di vorced, , never , or living with a partner? Patient declined 11/03/2024 AUDIT-C Answer Date Recorded Q1: How often do you have a drink containing alcohol? Never 10/17/2024 Q2: How many drinks containi ng alcohol do you have on a typical day when you are drinking? Patient does not drink Q3: How often do you have si x or more drinks on one occasion? Never 10/17/2024 Overall Financial Resource Strain (CARDIA) Answe r Date Recorded How hard is it for you to pa y for the very basics like food, housing, medical care, and heating? Not hard at all 11/03/2024 [place] [facility] - Occupational Stress Questionnaire Answer Date Recorded Do you feel stress - tense, restless, nervous, or anxious, or unable to sleep at night because your mind is troubled all the time - these days? Not at all 11/04/2024 Hunger Vital Sign Answer Date Recorded Within the past 12 months, y ou worried that your food would run out before you got the money to buy more. Never true 11/03/19 25 Within the past 12 months, t he food you bought just didn't last and you didn't have money to get more. Never true 11/03/2024 Housing Stability Vital Sign Answer Akbar e Recorded In the last 12 months, was t here a time when you were not able to pay the mortgage or rent on time? Patient declined 11/03/19 In the past 12 months, how m any times have you moved where you were living? 0 11/03/2024 At any time in the past 12 m [facility], were you homeless or living in a group home (including now)? Patient declined 11/03/2024 Domestic Abuse Assessment Answer Date R ecorded Do you feel safe in your relationships at home? Yes 10/17/2024 Physical Abuse Denies 10/17/2024 HRSN Domestic Abuse - Type of Abuse Not on file 10/17/2024 HRSN Domestic Abuse - Time Frame Not on file 10/17/2024 HRSN Domestic Abuse - Signs and Symptoms Not on file 10/17/2024 Verbal Abuse Denies 10/17/2024 HRSN Domestic Abuse - Reported To Not on file 10/17/2024 SDOH Transportation Source Answer Da te Recorded Has lack of transportation k ept you from medical appointments or from getting medications? No 11/03/2024 Has lack of transportation k ept you from meetings, work, or from getting things needed for daily living? No 11/03/2024 HRSN Depression PHQ-2 Answer Date Recor ded Feeling down, depressed, or hopeless 0 11/04/2024 Little interest or pleasure in doing things 0 11/04/2024 Sex and Gender Information Value Date Recorded Sex Assigned at Not on file Legal Sex Male 10:44 AM EST Gender Identity Not on file Sexual Orientation Not on file Last Filed Vital Signs Vital Sign Reading Time Taken Comments Blood Pressure 109/62 11/04/2024 7:19 AM EST Pulse 63 11/04/2024 8:32 AM EST Temperature 36.1 C (96.9 F) 11/04/2024 7:19 AM EST Respiratory Rate 16 11/04/2024 8:32 AM EST Oxygen Saturation 96% 11/04/2024 8:32 AM EST Inhaled Oxygen Concentration - - Weight 78 kg (172 lb) 11/04/2024 3:45 AM EST Height 182.9 cm (6') 10/17/2024 3:50 PM EST Body Mass Index 23.33 10/17/2024 3:50 PM EST Plan of Treatment Not on file Advance Directives * Full Resuscitation (Latest Code Status on File) Date Activated Date Inactivated Comments 10/17/2024 2:54 PM 11/04/2024 7:42 PM Question Answer Comments I have discussed this order with the patient or his/her surrogate and have received informed consent. Yes Care Teams Flatwork Folder Relationship Specialty Start Date End Date Sesar Serrano [address] [place] [id number] PCP - General 10/20/24
--- OUTSIDE RECORDS SUMMARY | 2025-03-04 15:18 | XMS_ITS | Encounter Summary ---
Author Organization [facility] Address [address] [place] [address] Care Team Providers Care It Operations Specialist Name Role Phone Samm Serrano MD Primary Care Provider +-4 Tom Gonzalez Unavailable [phone] Andreas Pierre MD Unavailable Virgil Carrillo MD Unavailable Jethro Mendoza MD Unavailable Isaías Kinnye MD Unavailable [phone] Source Comments In the event this information is protected by the Federal Confidentiality of Alcohol and Drug AbusePatient Records regulations: The Federal rules restrict any use of the information to criminally investigate or prosecute any alcohol or drug abuse patient.[facility] Encounter Details Date Type Department Care Team (Late st Contact Info) Description 06/13/2022 Patient Msg Cardiology [address] [place] [address] Andreas Pierre MD [address] [place] [address] Lab results Social History Tobacco Use Types Packs/Day Years [...] N ot on file 04/26/2022 Data from: https://www.neighborhoodatlas.[facility]/. Last address used for calculation [address] 04/26/2022 Sex and Gender Information Value Date Recorded Sex Assigned at Male 02/22/2019 10:48 PM EDT Legal Sex Male 8:07 AM EST Gender Identity Male 02/22/2019 10:48 PM EDT Sexual Orientation Straight 02/22/2019 10 :48 PM EDT COVID-19 Exposure Response Date Recorded In the last 10 days, have yo u been in contact with someone who was confirmed or suspected to have Coronavirus/COVID-19? No / Unsure 06/06/2022 12:12 PM EDT documented as of this encounter Functional Status * Are you deaf or do you have serious difficulty hearing? Answer Date of Assessment Author No 03/25/2019 11:00 AM EDT Jia Rios (Hist)ARIES * Are you blind or do you have serious difficulty seeing, even when wearing glasses? Answer Date of Assessment Author No 03/25/2019 11:00 AM EDT Jia RiosHist)ARIES * Do you have serious difficulty walking [...] Assessment Author No 03/25/2019 11:00 AM Jia Carlson RN (Hist) documented as of this encounter Mental Status * Because of a physical, mental, or emotional condition, do you have serious difficulty concentrating, remembering, or making decisions? Answer Entry Date Author No 03/25/2019 11:00 AM Jia Carlson RN (Hist) documented in this encounter Plan of Treatment Upcoming Encounters Date Type Department Care Team (Late st Contact Info) Description 06/30/2025 10:00 AM EDT Office Visit Cardiology [address] [phone] Isaías Kinney MD [address] [place] [address] DX: Chronic diastolic heart failure documented as of this encounter Visit Diagnoses Not on filedocumented in this encounter Care Teams It Operations Specialist Relationship Specialty Start Date End Date Samm Serrano MD PCP - General Family Medicine 05/30/12 Tom Gonzalez [address] [place] [address] Primary Staff Physician Cardiology 12/02/18 Andreas Pierre MD [address] [place] [address] Primary Staff Physician Cardiology 04/26/23 Virgil Carrillo MD [address] [place] [address] Primary Staff Physician Cardiology 10/29/23 Jethro Mendoza MD [address] [place] [address] Primary Staff Physician Cardiology 12/26/23 Isaías iKnney MD [address] [place] [address] Primary Staff Physician Cardiology 01/10/24 documented as of this encounter
--- OUTSIDE RECORDS SUMMARY | 2025-03-04 15:18 | XMS_ITS | Encounter Summary ---
Author Organization [facility] Address [address] [place] [address] Care Team Providers Care Director Of Billing Name Role Phone Samm Serrano MD Primary Care Provider +-4 Tom Gonzalez Unavailable [phone] Andreas Pierre MD Unavailable Virgil Carrillo MD Unavailable Jethro Mendoza MD Unavailable Isaías Kinney MD Unavailable Source Comments In the event this information is protected by the Federal Confidentiality of Alcohol and Drug AbusePatient Records regulations: The Federal rules restrict any use of the information to criminally investigate or prosecute any alcohol or drug abuse patient.[facility] Encounter Details Date Type Department Care Team (Late st Contact Info) Description 11/28/2022 Patient Msg Cardiology [address] [place], [place] [phone] Provider, [facility] Appointment Cancellation Request Social History Tobacco Use Types Packs/Day Years Used Date Smoking Tobacco: Former Cigarettes 1 10 0 04/28/1972 - 04/28/1982 Pipe Smokeless Tobacco: Never Alcohol Use Standard Drinks/Week Comments Yes 0 (1 standard drink = 0.6 oz pur e alcohol) rarely AUDIT-C Answer Date Recorded Q1: How often do you have a drink containing alc ohol? Monthly or less 04/15/2020 Q2: How many drinks containi ng alcohol do you have on a typical day when you are drinking? 1 or 2 04/15/2020 Frequency of Binge Drinking Not on file 03/18 PHQ-2 Answer Date Recorded PHQ-2 score 2 10/02/2022 Area Deprivation Index Answer Date Rich rded National Score (1-100), lower number is lower ri sk 53 10/01/2022 State Score (1-10), lower number is lower risk N ot on file 10/01/2022 Data from: https://www.neighborhoodatlas.medicine.[facility]/. Last address used for calculation [address] 10/01/2022 Sex and Gender Information Value Date Recorded [...] AM EDT Jia Rios RN (Hist) documented as of this encounter [...] 10:00 AM EDT Office Visit Cardiology [address] [place], [place] [phone] Isaías Kinney MD [address] [place] [address] DX: Chronic diastolic heart failure documented as of this encounter Visit Diagnoses Not on filedocumented in this encounter Care Teams Director Of Billing Relationship Specialty Start Date End Date Samm Serrano MD PCP - General Family Medicine 05/30/12 Tom Gonzalez [address] [place] [address] Primary Staff Physician Cardiology 12/02/18 Andreas Pierre MD [address] [place], [place] [phone] Primary Staff Physician Cardiology 04/26/23 Virgil Carrillo MD [facility] [phone] Primary Staff Physician Cardiology 10/29/23 Jethro Mendoza MD [address] [phone] Primary Staff Physician Cardiology 12/26/23 Isaías Kinney MD [address] [phone] Primary Staff Physician Cardiology 01/10/24 documented as of this encounter
--- OUTSIDE RECORDS SUMMARY | 2025-03-04 15:18 | XMS_ITS | Encounter Summary ---
Author Organization [facility] Address [address] [place] [address] Care Team Providers Care Strategic Account Director Name Role Phone Samm Serrano MD Primary Care Provider +-4 Tom Gonzalez Unavailable [phone] Andreas Pierre MD Unavailable Virgil Carrillo MD Unavailable Jethro Mendoza MD Unavailable Isaías Kinney MD Unavailable [phone] Source Comments In the event this information is protected by the Federal Confidentiality of Alcohol and Drug AbusePatient Records regulations: The Federal rules restrict any use of the information to criminally investigate or prosecute any alcohol or drug abuse patient.[facility] Encounter Details Date Type Department Care Team (Late st Contact Info) Description 01/22/2022 Get Medical Advice Radiation Oncology [address] [place] [address] [place] [address] Yung Andrade MD [address] [address] Medication Question (Not Renewal) Social History Tobacco Use Types Packs/Day Years [...] (1-100), lower number is lower ri sk Not on file 08/21/2020 State Score (1-10), lower number is lower risk N ot on file 08/21/2020 Data from: https://www.neighborhoodatlas.medicine.[facility].edu/. Last address used for calculation Not on file 08/21/2020 Sex and Gender Information Value Date Recorded [...] suspected to have Coronavirus/COVID-19? No / Unsure 01/18/2022 1:56 PM EDT documented as of this encounter Functional Status * Are you deaf or do you have serious difficulty hearing? Answer Date of Assessment Author No 03/25/2019 11:00 AM EDT Jia Rios (Radha)ARIES * Are you blind or do you have serious difficulty seeing, even when wearing glasses? Answer Date of Assessment Author No 03/25/2019 11:00 AM EDT Jia Rios), RN * Do you have serious difficulty walking or climbing stairs? Answer Date of Assessment Author No 03/25/2019 11:00 AM EDT Jia Rios)ARIES * Do you have difficulty dressing or bathing? Answer Date of Assessment Author No 03/25/2019 11:00 AM EDT Jia Rios)ARIES * Because of a physical, mental, or [...] 10:00 AM EDT Office Visit Cardiology [address] [phone] Isaías Kinney MD [address] [place] [address] DX: Chronic diastolic heart failure documented as of this encounter Visit Diagnoses Not on filedocumented in this encounter Care Teams Strategic Account Director Relationship Specialty Start Date End Date Samm Serrano MD PCP - General Family Medicine 05/30/12 Tom Gonzalez [address] [place] [address] Primary Staff Physician Cardiology 12/02/18 Andreas Pierre MD [address] [place] [address] Primary Staff Physician Cardiology 04/26/23 Virgil Carrillo MD [address] [place] [address] Primary Staff Physician Cardiology 10/29/23 Jethro Mendoza MD [address] [place] [address] Primary Staff Physician Cardiology 12/26/23 Isaías Kinney MD [address] [place] [address] Primary Staff Physician Cardiology 01/10/24 documented as of this encounter
--- OUTSIDE RECORDS SUMMARY | 2025-03-04 15:18 | XMS_ITS | Encounter Summary ---
Author Organization [facility] Address [address] [place] [address] Care Team Providers Care Glaciologist Name Role Phone Samm Serrano MD Primary Care Provider +-4 Tom Gonzalez Unavailable [phone] Andreas Pierre MD Unavailable Virgil Carrillo MD Unavailable Jethro Mendoza MD Unavailable Isaías Kinney MD Unavailable [phone] Source Comments In the event this information is protected by the Federal Confidentiality of Alcohol and Drug AbusePatient Records regulations: The Federal rules restrict any use of the information to criminally investigate or prosecute any alcohol or drug abuse patient.[facility] Encounter Details Date Type Department Care Team (Late st Contact Info) Description 01/19/2022 Get Medical Advice Radiation Oncology [address] [place] [address] [place] [address] Yung Andrade MD [address] [facility] [place] [address] Medication Question (Not Renewal) Social History Tobacco [...] N ot on file 08/21/2020 Data from: https://www.neighborhoodatlas.medicine.[facility].edu/. Last address used for calculation Not on [...] 10:00 AM EDT Office Visit Cardiology [address] [phone] Isaías Kinney MD [address] [place] [address] DX: Chronic diastolic heart failure documented as of this encounter Visit Diagnoses Not on filedocumented in this encounter Care Teams Glaciologist Relationship Specialty Start Date End Date Samm Serrano MD PCP - General Family Medicine 05/30/12 Tom Gonzalez [address] [place] [address] Primary Staff Physician Cardiology 12/02/18 Andreas Pierre MD [address] [place] [address] Primary Staff Physician Cardiology 04/26/23 Virgil Carrillo MD [address] [place] [address] Primary Staff Physician Cardiology 10/29/23 Jethro Mendoza MD [address] [place] [address] Primary Staff Physician Cardiology 12/26/23 Isaías Kinney MD [address] [place] [address] Primary Staff Physician Cardiology 01/10/24 documented as of this encounter
--- OUTSIDE RECORDS SUMMARY | 2025-03-04 15:18 | XMS_ITS | Encounter Summary ---
Author Organization [facility] Address [address] [place] [address] Care Team Providers Care Refining Machine Operator Name Role Phone Samm Serrano MD Primary Care Provider +-4 Tom Gonzalez Unavailable [phone] Andreas Pierre MD Unavailable Virgil Carrillo MD Unavailable Jethro Mendoza MD Unavailable Isaías Kinney MD Unavailable [phone] Source Comments In the event this information is protected by the Federal Confidentiality of Alcohol and Drug AbusePatient Records regulations: The Federal rules restrict any use of the information to criminally investigate or prosecute any alcohol or drug abuse patient.[facility] Encounter Details Date Type Department Care Team (Late st Contact Info) Description 09/01/2024 Patient Msg Cardiology [address] [place], [place] [phone] Isaías Kinney MD [address] [place] [address] Spironolactone Social History Tobacco Use Types Packs/Day Years Used Date Smoking Tobacco: Former Cigarettes 1 10 0 04/28/1972 - 04/28/1982 Pipe Passive Smoke Exposure: Never Smokeless Tobacco: Never Alcohol Use Standard Drinks/Week Comments Not Currently 0 (1 standard drink = 0.6 oz pur e alcohol) rarely [facility] Utilities Answer Date Recorded In the past 12 months has th e electric, gas, oil, or water [email or web address] threatened to shut off services in your [...] any time in the past 12 m [facility], were you homeless or living in a half-way (including now)? Yes 07/22/2024 Area Deprivation Index Answer Date Rich rded National Score (1-100), lower number is lower ri sk 52 02/05/2024 State Score (1-10), lower number is lower risk 3 02/05/2024 Data from: https://www.neighborhoodatlas.medicine.[facility].edu/. Last address used for calculation [address] [place] [address] [address] 02/05/2024 Sex and Gender Information Value Date Recorded Sex Assigned at Male 02/22/2019 10:48 PM EDT Legal Sex Male 8:07 AM EST Gender Identity Male 02/22/2019 10:48 PM EDT Sexual Orientation Straight 02/22/2019 10 :48 PM EDT documented as of this encounter Functional Status * Are you deaf or do you have serious difficulty hearing? Answer Date of Assessment Author No 05/16/2024 2:47 PM EDT Campos Mina RN * Are you blind or do you have serious difficulty seeing, even when wearing glasses? Answer Date of Assessment Author No 05/16/2024 2:47 PM EDT Campos Mina RN * Do you have serious difficulty walking or climbing stairs? Answer Date of Assessment Author No 05/16/2024 2:47 PM EDT Campos Mina RN * Do you have difficulty dressing or bathing? Answer Date of Assessment Author No 05/16/2024 2:47 PM EDT Campos Mina RN * Because of a physical, mental, or emotional condition, do you have difficulty doing errands alone such as visiting a doctor's office or shopping? Answer Date of Assessment Author No 05/16/2024 2:47 PM EDT Campos Mina RN documented as of this encounter Mental Status * Because of a physical, mental, or emotional condition, do you have serious difficulty concentrating, remembering, or making decisions? Answer Entry Date Author No 05/16/2024 2:47 PM EDT Campos Mina, RN documented in this encounter Plan of Treatment Upcoming Encounters Date Type Department Care Team (Late st Contact Info) Description 06/30/2025 10:00 AM EDT Office Visit Cardiology [address] [place] [address] Isaías Kinney MD [address] [place] [address] DX: Chronic diastolic heart failure documented as of this encounter Goals Goal Patient Goal Type Associated Problems Recent Progress Patient-Stated? Author Blood Pressure < 130/80 Blood Pressure 134/63( 025 3:00 PM EDT) No Lidia Lo, ARIES documented as of this encounter Visit Diagnoses Not on filedocumented in this encounter Care Teams Refining Machine Operator Relationship Specialty Start Date End Date Samm Serrano MD PCP - General Family Medicine 05/30/12 Tom Gonzalez [address] [place] [address] Primary Staff Physician Cardiology 12/02/18 Andreas Pierre MD [facility] [place] [address] Primary Staff Physician Cardiology 04/26/23 Virgil Carrillo MD [address] [place] [address] Primary Staff Physician Cardiology 10/29/23 Jethro Mendoza MD [facility] [place] [address] Primary Staff Physician Cardiology 12/26/23 Isaías Kinney MD [facility] [place] [address] Primary Staff Physician Cardiology 01/10/24 documented as of this encounter
--- OUTSIDE RECORDS SUMMARY | 2025-03-04 15:18 | XMS_ITS | Encounter Summary ---
Author Organization [facility] Address [address] [place] [address] Care Team Providers Care Production Inspector Name Role Phone Samm Serrano MD Primary Care Provider +-4 Tom Gonzalez Unavailable [phone] Andreas Pierre MD Unavailable Virgil Carrillo MD Unavailable Jethro Mendoza MD Unavailable Isaías Kinney MD Unavailable [phone] Source Comments In the event this information is protected by the Federal Confidentiality of Alcohol and Drug AbusePatient Records regulations: The Federal rules restrict any use of the information to criminally investigate or prosecute any alcohol or drug abuse patient.[facility] Encounter Details Date Type Department Care Team (Late st Contact Info) Description 09/03/2022 Letters (in) Vascular Surg Dept [address] [place] [address] John Jefferson MD [address] [place] [address] Social History Tobacco Use Types Packs/Day Years [...] N ot on file 04/26/2022 Data from: https://www.neighborhoodatlas.medicine.[facility]/. Last address used for calculation [address] [...] Author No 03/25/2019 11:00 AM Jia Carlson (Radha)ARIES * Do you have serious difficulty walking [...] 03/25/2019 11:00 AM EDT Jia Rios (Radha)ARIES documented in this encounter Miscellaneous Notes * Letter - John Jefferson MD - 09/03/2022 12:00 AM EST John Jefferson MD Software Engineer Mobile Department of Vascular Surgery [address] [place] [address] Office: [phone] Appointments: [facility]/ [phone] Fax: [phone] December 19, 2022 José Miguel Roth [address] [address] NAME: [facility] NO: [id number] : 1940 DATE OF SERVICE: 09/03/2022 Dear Mr. Roth, I was just writing to see how you are doing. We originally set you up to repair your carotid. On December 06, you let us know that you had canceled. Hopefully, you are going to consider having this donesomewhere closer to home. Otherwise, I am happy to see you at any time if you reconsider. Sincerely, John Jefferson M.D (Signed electronically to expedite mailing) [facility]/rin . SUMEET/089 Audio #: [id number] Date Dictated: 12/19/2022 11:16:33 Date Typed: 12/21/2022 08:54:29 Date Revised: documented in this encounter Plan of Treatment Upcoming Encounters Date Type Department Care Team (Late st Contact Info) Description 06/30/2025 10:00 AM EDT Office Visit Cardiology [address] [place] [address] Isaías Kinney MD [address] [place], [place] [phone] DX: Chronic diastolic heart failure documented as of this encounter Visit Diagnoses Not on filedocumented in this encounter Care Teams Production Inspector Relationship Specialty Start Date End Date Samm Serrano MD PCP - General Family Medicine 05/30/12 Tom Gonzalez [address] [place] [address] Primary Staff Physician Cardiology 12/02/18 Andreas Pierre MD [address] [place], [place] [id number] Primary Staff Physician Cardiology 04/26/23 Virgil Carrillo MD [address] [place], [place] [phone] Primary Staff Physician Cardiology 10/29/23 Jethro Mendoza MD [address] [place], [place] [phone] Primary Staff Physician Cardiology 12/26/23 Isaías Kinney MD [address] [place], [place] [phone] Primary Staff Physician Cardiology 01/10/24 documented as of this encounter
--- OUTSIDE RECORDS SUMMARY | 2025-03-04 15:18 | XMS_ITS | Encounter Summary ---
Author Organization [facility] Address [address] [place] [address] Care Team Providers Care Anchor Operator Name Role Phone Samm Serrano MD Primary Care Provider [phone] Inocencio Falk DO Unavailable [phone] Tom Gonzalez Unavailable [phone] Andreas Pierre MD Unavailable Virgil Carrillo MD Unavailable Jethro Mendoza MD Unavailable Isaías Kinney MD Unavailable [phone] Source Comments In the event this information is protected by the Federal Confidentiality of Alcohol and Drug AbusePatient Records regulations: The Federal rules restrict any use of the information to criminally investigate or prosecute any alcohol or drug abuse patient.[facility] Encounter Details Date Type Department Care Team (Late st Contact Info) Description 11/21/2012 Patient Msg Medical Records [address] [place] [address] Provider, Ccf Appointment Cancellation Request Social History Tobacco Use Types Packs/Day Years Used Date Smoking Tobacco: Former Cigarettes 1 20 0 04/28/1962 - 04/28/1982 Pipe Smokeless Tobacco: Never Alcohol Use Standard Drinks/Week Comments No 2 (1 standard drink = 0.6 oz pur e alcohol) Sex and Gender Information Value Date Recorded Sex Assigned at Male 02/22/2019 10:48 PM EDT Legal Sex Male 8:07 AM EST Gender Identity Male 02/22/2019 10:48 PM EDT Sexual Orientation Straight 02/22/2019 10 :48 PM EDT documented as of this encounter Plan of Treatment Upcoming Encounters Date Type Department Care Team (Late st Contact Info) Description 06/30/2025 10:00 AM EDT Office Visit Cardiology [address] [place] [address] Isaías Kinney MD [address] [place] [address] DX: Chronic diastolic heart failure documented as of this encounter Visit Diagnoses Not on filedocumented in this encounter Care Teams Anchor Operator Relationship Specialty Start Date End Date Samm Serrano MD PCP - General Family Medicine 05/30/12 Inocencio Falk DO [address] [place] [address] Primary Staff Physician Cardiology 12/15/14 Tom Gonzalez [address] [place] [address] Primary Staff Physician Cardiology 12/02/18 Andreas Pierre MD [address] [place] [address] Primary Staff Physician Cardiology 04/26/23 Virgil Carrillo MD [facility] [place] [address] Primary Staff Physician Cardiology 10/29/23 Jethro Mendoza MD [address] [place] [address] Primary Staff Physician Cardiology 12/26/23 Isaías Kinney MD [address] [place] [address] Primary Staff Physician Cardiology 01/10/24 documented as of this encounter
--- OUTSIDE RECORDS SUMMARY | 2025-03-04 15:18 | XMS_ITS | Encounter Summary ---
Author Organization [facility] Address [address] [place] [address] Care Team Providers Care Dairy Consultant Name Role Phone Samm Serrano MD Primary Care Provider +-4 Tom Gonzalez Unavailable [phone] Andreas Pierre MD Unavailable Virgil Carrillo MD Unavailable Jethro Mendoza MD Unavailable Isaías Kinney MD Unavailable [phone] Source Comments In the event this information is protected by the Federal Confidentiality of Alcohol and Drug AbusePatient Records regulations: The Federal rules restrict any use of the information to criminally investigate or prosecute any alcohol or drug abuse patient.[facility] Encounter Details Date Type Department Care Team (Late st Contact Info) Description 07/16/2022 Get Medical Advice Cardiology [address] [place], [place] [id number] Andreas Pierre MD [address] [place] [address] medication question Social History Tobacco Use Types Packs/Day Years [...] N ot on file 04/26/2022 Data from: https://www.neighborhoodatlas.medicine.[facility]/. Last address used for calculation [address] [...] No 03/25/2019 11:00 AM EDT Jia Rios (Radha) RN * Because of a physical, mental, or emotional condition, do you have difficulty doing errands alone such as visiting a doctor's office or shopping? Answer Date of Assessment Author No 03/25/2019 11:00 AM EDT Jia Rios (Radha)ARIES documented as of this encounter Mental Status * Because of a physical, mental, or emotional condition, do you have serious difficulty concentrating, remembering, or making decisions? Answer Entry Date Author No 03/25/2019 11:00 AM EDT Jia Rios (Radha)ARIES documented in this encounter Plan of Treatment Upcoming Encounters Date Type Department Care Team (Late st Contact Info) Description 06/30/2025 10:00 AM EDT Office Visit Cardiology [address] [place] [address] Isaías Kinney MD [address] [place] [address] DX: Chronic diastolic heart failure documented as of this encounter Visit Diagnoses Not on filedocumented in this encounter Care Teams Dairy Consultant Relationship Specialty Start Date End Date Samm Serrano MD PCP - General Family Medicine 05/30/12 Tom Gonzalez [address] [place] [address] Primary Staff Physician Cardiology 12/02/18 Andreas Pierre MD [address] [place] [address] Primary Staff Physician Cardiology 04/26/23 Virgil Carrillo MD [address] [place], [place] [phone] Primary Staff Physician Cardiology 10/29/23 Jethro Mendoza MD [address] [place] [address] Primary Staff Physician Cardiology 12/26/23 Isaías Kinney MD [address] [place] [address] Primary Staff Physician Cardiology 01/10/24 documented as of this encounter
--- OUTSIDE RECORDS SUMMARY | 2025-03-04 15:19 | XMS_ITS | Encounter Summary ---
Author Organization [facility] Address [address] [place] [address] Care Team Providers Care Junior Underwriter Name Role Phone Samm Serrano MD Primary Care Provider +-4 Tom Goznalez Unavailable [phone] Andreas Pierre MD Unavailable Virgil Carrillo MD Unavailable Jethro Mendoza MD Unavailable Isaísa Kinney MD Unavailable [phone] Source Comments In the event this information is protected by the Federal Confidentiality of Alcohol and Drug AbusePatient Records regulations: The Federal rules restrict any use of the information to criminally investigate or prosecute any alcohol or drug abuse patient.[facility] Encounter Details Date Type Department Care Team (Late st Contact Info) Description 11/28/2022 Patient Msg Vascular Surg Dept [address] [place] [address] Tiarra Lopez APRN.DIAMOND POLISHER [address] [place] [address] Appointment Cancellation Request Social History Tobacco Use [...] N ot on file 10/01/2022 Data from: https://www.neighborhoodatlas.medicine.[facility].edu/. Last address used for calculation [address] [...] of Assessment Author No 03/25/2019 11:00 AM DOTTIET Jia Rios)ARIES * Do you have difficulty dressing or bathing? Answer Date of Assessment Author No 03/25/2019 11:00 AM EDT Jia Rios (Radha)ARIES * Because of a physical, mental, or [...] 10:00 AM EDT Office Visit Cardiology [address] [place], [place] [phone] Isaías Kinney MD [address] [phone] DX: Chronic diastolic heart failure documented as of this encounter Visit Diagnoses Not on filedocumented in this encounter Care Teams Junior Underwriter Relationship Specialty Start Date End Date Samm Serrano MD PCP - General Family Medicine 05/30/12 Tom Gonzalez [address] [place] [address] Primary Staff Physician Cardiology 12/02/18 Andreas Pierre MD [address] [place] [address] Primary Staff Physician Cardiology 04/26/23 Virgil Carrillo MD [address] [phone] Primary Staff Physician Cardiology 10/29/23 Jethro Mendoza MD [address] [place] [address] Primary Staff Physician Cardiology 12/26/23 Isaías Kinney MD [address] [place] [address] Primary Staff Physician Cardiology 01/10/24 documented as of this encounter
--- OUTSIDE RECORDS SUMMARY | 2025-03-04 15:19 | XMS_ITS | Encounter Summary ---
Author Organization [facility] Address [address] [place] [address] Care Team Providers Care Sped Teacher Name Role Phone Samm Serrano MD Primary Care Provider +-4 Tom Gonzalez Unavailable [phone] Andreas Pierre MD Unavailable Virgil Carrillo MD Unavailable Jethro Mendoza MD Unavailable Isaías Kinney MD Unavailable [phone] Source Comments In the event this information is protected by the Federal Confidentiality of Alcohol and Drug AbusePatient Records regulations: The Federal rules restrict any use of the information to criminally investigate or prosecute any alcohol or drug abuse patient.[facility] Encounter Details Date Type Department Care Team (Late st Contact Info) Description 11/28/2022 Patient Msg Vascular Surg Dept [address] [place] [address] John Jefferson MD [address] [place] [address] Appointment Cancellation Request Social History Tobacco Use [...] N ot on file 10/01/2022 Data from: https://www.neighborhoodatlas.[facility].edu/. Last address used for calculation [address] [...] 10:00 AM EDT Office Visit Cardiology [address] [place], [place] [phone] Isaías Kinney MD [address] [place] [address] DX: Chronic diastolic heart failure documented as of this encounter Visit Diagnoses Not on filedocumented in this encounter Care Teams Sped Teacher Relationship Specialty Start Date End Date Samm Serrano MD PCP - General Family Medicine 05/30/12 Tom Gonzalez [address] [place] [address] Primary Staff Physician Cardiology 12/02/18 Andreas Pierre MD [address] [place] [address] Primary Staff Physician Cardiology 04/26/23 Virgil Carrillo MD [address] [place], [place] [address] Primary Staff Physician Cardiology 10/29/23 Jethro Mendoza MD [facility] [place] [address] Primary Staff Physician Cardiology 12/26/23 Isaías Kinney MD [address] [place] [address] Primary Staff Physician Cardiology 01/10/24 documented as of this encounter
--- OUTSIDE RECORDS SUMMARY | 2025-03-04 15:19 | XMS_ITS | Encounter Summary ---
Author Organization [facility] Address [address] [place] [address] Care Team Providers Care Software Support Specialist Name Role Phone Samm Serrano MD Primary Care Provider [phone] Inocencio Falk DO Unavailable [phone] Tom Gonzalez Unavailable [phone] Andreas Pierre MD Unavailable Virgil Carrillo MD Unavailable Jethro Mendoza MD Unavailable Isaías Kinney MD Unavailable [phone] Source Comments In the event this information is protected by the Federal Confidentiality of Alcohol and Drug AbusePatient Records regulations: The Federal rules restrict any use of the information to criminally investigate or prosecute any alcohol or drug abuse patient.[facility] Encounter Details Date Type Department Care Team (Late st Contact Info) Description 11/21/2012 Patient Msg Medical Records [address] [place] [address] Provider, Ccf RE: Appointment Cancellation Request Social History Tobacco Use [...] 10:00 AM EDT Office Visit Cardiology [address] [place] [address] Isaías Kinney MD [address] [place] [address] DX: Chronic diastolic heart failure documented as of this encounter Visit Diagnoses Not on filedocumented in this encounter Care Teams Software Support Specialist Relationship Specialty Start Date End Date Samm Serrano MD PCP - General Family Medicine 05/30/12 Inocencio Falk DO [address] [place] [address] Primary Staff Physician Cardiology 12/15/14 Tom Gonzalez [address] [place] [address] Primary Staff Physician Cardiology 12/02/18 Andreas Pierre MD [address] [place] [address] Primary Staff Physician Cardiology 04/26/23 Virgil Carrillo MD [address] [place] [address] Primary Staff Physician Cardiology 10/29/23 Jethro Mendoza MD [address] [place] [address] Primary Staff Physician Cardiology 12/26/23 Isaías Kinney MD [address] [place] [address] Primary Staff Physician Cardiology 01/10/24 documented as of this encounter
--- OUTSIDE RECORDS SUMMARY | 2025-03-04 15:19 | XMS_ITS | Encounter Summary ---
Author Organization [facility] Address [address] [place] [address] Care Team Providers Care Flosser Name Role Phone Samm Serrano MD Primary Care Provider +-4 Tom Gonzalez Unavailable [phone] Andreas Pierre MD Unavailable Virgil Carrillo MD Unavailable Jethro Mendoza MD Unavailable Isaías Kinney MD Unavailable [phone] Source Comments In the event this information is protected by the Federal Confidentiality of Alcohol and Drug AbusePatient Records regulations: The Federal rules restrict any use of the information to criminally investigate or prosecute any alcohol or drug abuse patient.[facility] Encounter Details Date Type Department Care Team (Late st Contact Info) Description 11/29/2022 Patient Msg Cardiology [address] [place], [place] [id number] Provider, Ccf Appointment Cancellation Request Social History [...] N ot on file 10/01/2022 Data from: https://www.neighborhoodatlas.medicine.[facility]/. Last address used for calculation [address] [...] 10:00 AM EDT Office Visit Cardiology [address] [place], [place] [phone] Isaías Kinney MD [address] [place] [address] DX: Chronic diastolic heart failure documented as of this encounter Visit Diagnoses Not on filedocumented in this encounter Care Teams Flosser Relationship Specialty Start Date End Date Samm Serrano MD PCP - General Family Medicine 05/30/12 Tom Gonzalez [address] [place] [address] Primary Staff Physician Cardiology 12/02/18 Andreas Pierre MD [address] [place], [place] [address] Primary Staff Physician Cardiology 04/26/23 Virgil Carrillo MD [facility] [place] [phone] Primary Staff Physician Cardiology 10/29/23 Jethro Mendoza MD [address] [id number] Primary Staff Physician Cardiology 12/26/23 Isaías Kinney MD [address] [phone] Primary Staff Physician Cardiology 01/10/24 documented as of this encounter
--- OUTSIDE RECORDS SUMMARY | 2025-03-04 15:19 | XMS_ITS | Referral Summary ---
Author Organization [facility] Address [address] [place] [address] Care Team Providers Care District Wire Chief Name Role Phone Samm Serrano MD Primary Care Provider [phone] Allergies Active Allergy Reactions Criticality Noted Date Comments Latex 05/26/2022 Medications coenzyme Q-10 100 mg capsule Take 100 mg by mouth in the morning. Active apixaban (Eliquis) 2.5 mg tablet Take 2.5 mg by mouth two times daily. Active cetirizine (ZyrTEC) 10 mg chewable tablet Chew 10 mg if needed each day for allergies. Active bisacodyl (Dulcolax, bisacodyl,) 10 mg suppository Insert 10 mg into the rectum 1 (one) time if needed for constipation . Active levothyroxine (Tirosint) 88 mcg capsule Take 88 mcg by mouth before breakfast. Active potassium chloride CR (Klor-Con M20) 20 mEq ER tablet Take 40 mEq by mouth in the morning. Do not crush or chew. Active zinc gluconate 30 mg tablet Take 30 mg by mouth 1 (one) time each day. Active metoprolol succinate XL (Toprol-XL) 25 mg 24 hr tabletIndication s:MYLES (acute kidney injury) Take 0.5 tablets (12.5 mg) by mouth in the morning for 89 doses. Do not crush or chew. 5 Active mexiletine (Mexitil) 150 mg capsuleIndicatio ns:MYLES (acute kidney injury) Take 1 capsule (150 mg) by mouth two times daily for 192 doses. 5 Active bumetanide (Bumex) 2 mg tabletIndication s:MYLES (acute kidney injury) Take 1 tablet (2 mg) by mouth every 12 (twelve) hours for 198 doses. Active magnesium oxide (Mag-Ox) 400 mg (241.3 mg magnesium) tabletIndication s:MYLES (acute kidney injury) Take 1 tablet (400 mg) by mouth in the morning for 120 doses. 5 02/14/20 Active Problems Problem Noted Date Diagnosed Date Acute kidney injury superimposed on CKD 10/15/19 Amaurosis fugax 03/02/2024 TIA (transient ischemic attack) 03/01/2024 Dyspnea, unspecified 02/07/2024 Stage 3b chronic kidney disease 01/10/2024 MYLES (acute kidney injury) 11/25/2023 Hypokalemia 11/25/2023 Unspecified severe protein-calorie malnutrition 11/22/2023 Chronic obstructive pulmonary disease, unspecifi ed 11/18/2023 11/18/2023 Cardiorenal syndrome 10/27/2023 Heart failure with reduced ejection fraction 07/2024 NSTEMI (non-ST elevated myocardial infarction) 0 09/27/2023 Acute on chronic combined sy stolic and diastolic congestive heart failure 09/03/2022 Carotid stenosis, asymptomatic, left 07/23/2022 History of ischemic stroke 07/23/2022 Coronary artery disease invo lving coronary bypass graft of [place] heart 05/26/2022 Chronic systolic heart failure 05/26/2022 NSVT (nonsustained ventricular tachycardia) 05/17 Old [place] (myocardial infarction) 05/26/2022 Mitral valve insufficiency 05/26/2022 Claudication, intermittent 05/26/2022 Primary hypertension 05/23/2022 09/28/2023 Hypothyroidism, unspecified 05/23/202209/16 Major depressive disorder, recurrent, unspecifie d 05/23/2022 09/28/2023 Type 2 diabetes mellitus wit h diabetic chronic kidney disease 05/23/2022 09/28/2023 Chronic kidney disease, unspecified 05/23/2022 10/10/2023 Iron deficiency anemia, unspecified 05/23/2022 10/10/2023 Paroxysmal tachycardia, unspecified 05/23/2022 10/10/2023 Personal history of malignant neoplasm of prosta te 05/23/2022 10/10/2023 Personal history of transien t ischemic attack (TIA), and cerebral infarction without residual deficits 05/23/2022 10/10/19 Presence of automatic (implantable) cardiac defi brillator 05/23/2022 10/10/2023 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 Some results. At this point early satisfactory. Continue with such ==== 09/28/2019 ==== New problem, additional workup planned. denies nitrates. Does have erections suitable for intercourse but doesn't last long. He is very physically active. He is remodeling his kitchen and has done physical therapy. He will get clearance to take Viagra through his sprinkler installer. Both and patient are where the most contact sprinkler installer prior to taking the medication. Viagra 1/2 tab may go up to full tab if no effect after 3 different times Syncope 03/18/2019 10/10/2023 Prostate cancer 10/09/2017 09/28/2023 Overview (09/28/2023): ==== 07/26/2021 ==== ##### bone scan is negative, CT is neg for visceral or parenchymal metastasis. No pathologically enlarged lymph nodes but there is an 8 mm slightly prominent nodule -left para aortic. ==== 06/28/2021 ==== lost to follow-up secondary to COVID. Patient did not proceed with the prostate biopsy as ordered. Digital rectal exam today some potential firmness at the right apex certainly not definitive. PSA currently 30 0.08. Patient is not on any finasteride. === 10/12/2019 ==== PSA 14.55. Therefore elevated. PSA however is least reliable indicator regarding aggressiveness of disease. Patient also has had history of fluctuating PSA. He is still very interested and adopting his diet. We made at mutual decision then that he would adopt his improved diet and then we would do a biopsy of his prostate taking multiple cores in about 2 months or so. PSA prior. is present today. She is happy with the discussion as well. ==== 09/28/2019 ==== decipher test insufficient tissue for analysis. Cannot run any further testing on his material. Not yet had PSA. MRI not performed as it could potentially have compromised his AICD although his AICD was MRI compatible. Patient elected not to proceed. ==== 07/17/2019 ==== HIghest [place] Grade: 3+ 4 equal 7 # of cores Positive: 2 Laterality: Right Patient's PSA is: Approximately 13 Prostate Volume is: 20.7 cc PSA density is: Approximately 0.6 Clinical stage is: Clinical T1c NCCN clinical risk group is: Favorable intermediate risk MSKCC Nomogram probability for Lymph Node Metastasis: 2% Location: bilateral Severity: moderate Quality: NCCN guidelines unfavorable intermediate risk Based on social security life tables patient is predicted life expectancy is: 10 yrs Baseline urinary function is: good Baseline sexual function is: cannot sustain erection Comorbidities: cardiac---[place], Has AICD ==== 07/17/2019 ==== patient follow-up outside urologist as well as outside radiation oncologist. 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 PSA has fluctuate anywhere from 5 to approximately 13. Most recent PSA that I have of record is 12.3 in October 2014. Subsequent biopsy December 2018 2 course [place] 3 + 4 equal 7. Right side. Previous biopsies had been 3+ 4 equal 7 as well. Maximum percentage positive core 21%. Patient does have substantial cardiac history as well. Myocardial infarction triple bypass 2011. AICD placed OctoberMarch 2019. By report ejection fraction 35%. Patient is active however. He wants to determine whether not proceed with any treatment versus continue on active surveillance. Plan: In order to better risk stratify him will obtain Prolaris study as well as an MRI of the prostate granted patient does have AICD unaware if this is MRI compatible or not. Reconvene and then discuss further. Last Assessment & Plan: I talked regarding various scenarios with patient and his . We talked about AXUMIN PET CT. We talked about radiation therapy. We discussed radiation therapy both the prostate as well as potential lymph node. Also patient does make some reference to not doing anything at this point. I think it is caceres at least to see radiation oncology. Referral to be made -per patient choice [place] [facility]. 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 Plan: Aggressive risk factor management. See CAD section. Sweating 11/17/2012 10/10/2023 Overview (10/10/2023): History: Developed cold sweat ~ 1100 at rest during [facility] on 11/16. There was no nausea, chest pain, jaw pain, shortness of breath, or lightheadedness. This is similar to his symptoms when patient had STEMI in 04/2012. Patient presented to [facility] at 1200. EKG showed q waves in III, aVF; ST depression in I, aVL; ST elevation V3, V4, V5. On arrival to [facility] his EKG showed resolution of ST elevation in V4 and V5. His troponin 0.367 at OSH (? Troponin I); but has been negative at [facility] Main campus. Assessment: Possible atypical manifestations type II demand ischemia in setting of recent dehydration from profuse diarrhea or residual symptoms of recent illness. Cold sweat resolved after arrival. Plan: Trend cardiac enzymes, monitor clinical symptoms, and serial EKG's as needed. If continue to worsen clinically, would proceed to [facility]. 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 Stable. Developed SVT day of surgery converted to SR on IV Amiodarone. Currently SR. Continue BB and PO Amio Taper. Preop testing 04/29/2012 10/10/2023 Overview (10/10/2023): Images from the original note were not included. [facility] PRE[facility] CHECKLIST Surgeon: Charu Long M.D. Informed Consent Completed: Yes STS Score: 2.0 CAD: Yes - CAD on Problem List: Yes Is intended procedure a CABG: Yes - is a beta jasbir ordered? Yes H & P completed: Yes PA/LAT: Completed CT: N/A MRI: N/A LE US: N/A Cath: Yes - reviewed: Yes Echo: completed EKG: completed EF %: 37 PI's: completed Carotid: completed Mapping: N/A Dental: N/A PFT's: completed Basename 04/29/12 0645 04/29/12 0040 WBC -- 11.91* HB -- 15.1 HCT -- 44.6 PLT -- 156 INR -- 1.1 CREAT 1.13 -- UA:neg HCG:N/A ABO/ABO Confirmed: O+/neg Blood ordered: 2 units PRBC SA Swab: Yes - results: neg Last Dose of Anticoagulation: LD Plavix 600 04/28~ADP: 54, Now on ASA 81 and Heparin IV Op Note: N/A Pacemaker Check: N/A Consults: DM: No Cardiac Surgical prep: Yes SIGNATURE: Jayy Christie DATE of SERVICE: 04/29/2012 TIME of SERVICE: 9:30 AM Checked: Wilma Mejia 04/30 Hyperlipidemia 04/28/2012 09/28/2023 Overview (09/28/2023): Chronic. Stable. No meds preop. Had not seen physician in many years prior to surgery. LDL on admission 150. Started on lipitor 80mg postop for STEMI on admission. LFTs slightly up. No complaints. Continue. Immunizations Immunization Administration Dates Next Due [facility] 06/13/2020 Social History Tobacco Use Types Packs/Day Years Used Date Smoking Tobacco: Former Cigarettes Smokeless Tobacco: Never Tobacco Cessation:Counseling Given: Not Answered Alcohol Use Standard Drinks/Week Comments Not Currently 0 (1 standard drink = 0.6 oz pur e alcohol) [facility] Utilities Answer Date Recorded In the past 12 months has th e electric, gas, oil, or water company threatened to shut off services in your home? No 09/29/2024 Humiliation, Afraid, Rape, and Kick questionnair e Answer Date Recorded Within the last year, have y ou been afraid of your partner or ex-partner? No 09/29/2024 Emotionally Abused Not on file 09/29/2024 Physically Abused Not on file 09/29/2024 Sexually Abused Not on file 09/29/2024 Overall Financial Resource Strain (CARDIA) Answe r Date Recorded How hard is it for you to pa y for the very basics like food, housing, medical care, and heating? Not hard at all 09/29/2024 PHQ-2 Answer Date Recorded Patient Health Questionnaire-2 Score 0 12/25/2023 Transportation Answer Date Recorded In the past 12 months, has l ack of transportation kept you from medical appointments or from getting medications? No 09/29/2024 Lack of Transportation (Non-Medical) Not on file 09/29/2024 Housing Stability Vital Sign Answer Akbar e Recorded In the last 12 months, was t here a time when you were not able to pay the mortgage or rent on time? No 09/29/2024 Number of Times Moved in the Last Year Not on fi le 09/29/2024 At any time in the past 12 m [facility], were you homeless or living in a custodial (including now)? No 09/29/2024 Hunger Vital Sign Answer Date Recorded Within the past 12 months, y ou worried that your food would run out before you got the money to buy more. Never true 09/29/19 25 Ran Out of Food in the Last Year Not on file 09/29/2024 Sex and Gender Information Value Date Recorded Sex Assigned at Not on file Legal Sex Male 10:54 PM EDT Gender Identity Not on file Sexual Orientation Not on file Last Filed Vital Signs Vital Sign Reading Time Taken Comments Blood Pressure 103/67 10/17/2024 8:15 AM EST Pulse 74 10/17/2024 8:15 AM EST Temperature 36.6 C (97.9 F) 10/17/2024 8:15 AM EST Respiratory Rate 17 10/17/2024 8:15 AM EST Oxygen Saturation 96% 10/17/2024 8:15 AM EST Inhaled Oxygen Concentration - - Weight 75 kg (165 lb 5.5 oz) 10/17/2024 5:00 AM EST Height 182.9 cm (6') 09/29/2024 11:08 AM EST Body Mass Index 22.42 09/29/2024 11:08 AM EST Plan of Treatment Not on file Procedures Procedure Name Priority Date/Time Associated Diagnosis Comments HEMOGLOBIN A1C Pending Discharge 10/04/2024 3:0 8 AM EST from Last 3 Months or Most Recently Relevant to Health Maintenance Results * Hemoglobin A1c (10/04/2024 3:08 AM EST) Hemoglobin A1C 5.6 4.0 - 6.0 % 10/05/2024 11:29 AM EST [facility] ([facility]) Estimated Average Glucose 114 mg/dL 10/05/2024 11:29 AM EST [facility] ([facility]) Blood Venous blood specimen / Unknown Arterial Line / Unknown 10/04/2024 3:08 AM EST 10/04/2024 3:56 AM EST us Chaimrajesh Cabrera MD LAB BLOOD ORDERABLES Final Resu lt [facility] ([facility]) [address] [place] [address] from Last 3 Months or Most Recently Relevant to Health Maintenance Insurance [employer] Advance Directives * Full Code (Latest Code Status on File) Date Activated Date Inactivated Comments 09/29/2024 6:48 PM 10/17/2024 5:18 PM * Full Code Date Activated Date Inactivated Comments 11/19/2023 5:43 PM 11/25/2023 5:51 PM * Full Code Date Activated Date Inactivated Comments 11/19/2023 4:28 PM 11/19/2023 5:43 PM * Full Code Date Activated Date Inactivated Comments 09/27/2023 1:34 PM 09/29/2023 8:52 PM Care Teams District Wire Chief Relationship Specialty Start Date End Date Samm Serrano MD [address] [facility] [address] [address] PCP - General 05/16/22
--- OUTSIDE RECORDS SUMMARY | 2025-03-04 15:19 | XMS_ITS | Encounter Summary ---
Author Organization [facility] Address [address] [place] [address] Care Team Providers Care Diesel Engine Fitter Name Role Phone Samm Serrano MD Primary Care Provider +-4 Tom Gonzalez Unavailable [phone] Andreas Pierre MD Unavailable Virgil Carrillo MD Unavailable Jethro Mendoza MD Unavailable Isaías Kinney MD Unavailable Source Comments In the event this information is protected by the Federal Confidentiality of Alcohol and Drug AbusePatient Records regulations: The Federal rules restrict any use of the information to criminally investigate or prosecute any alcohol or drug abuse patient.[facility] Encounter Details Date Type Department Care Team (Late st Contact Info) Description 11/28/2022 Patient Msg Cardiology [address] [place], [place] [id number] Provider, Ccf Appointment Cancellation Request Social History [...] N ot on file 10/01/2022 Data from: [email or web address] Last address used for calculation [address] [...] 10:00 AM EDT Office Visit Cardiology [address] [place], [place] [phone] Isaías Kinney MD [address] [place] [address] DX: Chronic diastolic heart failure documented as of this encounter Visit Diagnoses Not on filedocumented in this encounter Care Teams Diesel Engine Fitter Relationship Specialty Start Date End Date Samm Serrano MD PCP - General Family Medicine 05/30/12 Tom Gonzalez [address] [place] [address] Primary Staff Physician Cardiology 12/02/18 Andreas Pierre MD [address] [place], [place] [id number] Primary Staff Physician Cardiology 04/26/23 Virgil Carrillo MD [facility] [place] [id number] Primary Staff Physician Cardiology 10/29/23 Jethro Mendoza MD [address] [place] [id number] Primary Staff Physician Cardiology 12/26/23 Isaías Kinney MD [address] [place] [id number] Primary Staff Physician Cardiology 01/10/24 documented as of this encounter
--- OUTSIDE RECORDS SUMMARY | 2025-03-04 15:19 | XMS_ITS | Encounter Summary ---
Author Organization [facility] Address [address] [place] [address] Care Team Providers Care Glass Calibrator Name Role Phone Samm Serrano MD Primary Care Provider +-[phone] Tom Gonzalez Unavailable [phone] Andreas Pierre MD Unavailable Virgil Carrillo MD Unavailable Jethro Mendoza MD Unavailable Isaías Kinney MD Unavailable [phone] Source Comments In the event this information is protected by the Federal Confidentiality of Alcohol and Drug AbusePatient Records regulations: The Federal rules restrict any use of the information to criminally investigate or prosecute any alcohol or drug abuse patient.[facility] Encounter Details Date Type Department Care Team (Late st Contact Info) Description 09/28/2023 DOWNTIME NOTICE [facility] [place] [address] Note, Interface Social History Tobacco Use Types Packs/Day Years [...] lower number is lower ri sk 52 04/02/2023 State Score (1-10), lower number is lower risk 3 04/02/2023 Data from: https://www.neigh katherinehoodatlas.medicine.[facility].edu/. Last address used for calculation [address] 04/02/2023 Sex and Gender Information Value Date Recorded [...] Rios RN (Hist) documented in this encounter Progress Notes * Sheron, Interface - 09/28/2023 2:13 AM EST Epic Scheduled Downtime: 09/28/2023 1:00:00 AM to 09/28/2023 2:04:22 AM documented in this encounter Plan of Treatment Upcoming Encounters Date Type Department Care Team (Late st Contact Info) Description 06/30/2025 10:00 AM EDT Office Visit Cardiology [address] [place] [phone] Isaías Kinney MD [address] [place] [address] DX: Chronic diastolic heart failure documented as of this encounter Visit Diagnoses Not on filedocumented in this encounter Care Teams Glass Calibrator Relationship Specialty Start Date End Date Samm Serrano MD PCP - General Family Medicine 05/30/12 Tom Gonzalez [address] [place] [address] Primary Staff Physician Cardiology 12/02/18 Andreas Pierre MD [address] [place] [address] Primary Staff Physician Cardiology 04/26/23 Virgil Carrillo MD [address] [place] [phone] Primary Staff Physician Cardiology 10/29/23 Jethro Mendoza MD [address] [place] [address] Primary Staff Physician Cardiology 12/26/23 Isaías Kinney MD [address] [place] [address] Primary Staff Physician Cardiology 01/10/24 documented as of this encounter
--- OUTSIDE RECORDS SUMMARY | 2025-03-04 15:19 | XMS_ITS | Encounter Summary ---
Author Organization [facility] Address [address] [place] [address] Care Team Providers Care Foreclosure Home Inspector Name Role Phone Samm Serrano MD Primary Care Provider +-4 Tom Gonzalez Unavailable [phone] Andreas Pierre MD Unavailable Virgil Carrillo MD Unavailable Jethro Mendoza MD Unavailable Isaías Kinney MD Unavailable [phone] Source Comments In the event this information is protected by the Federal Confidentiality of Alcohol and Drug AbusePatient Records regulations: The Federal rules restrict any use of the information to criminally investigate or prosecute any alcohol or drug abuse patient.[facility] Encounter Details Date Type Department Care Team (Late st Contact Info) Description 11/28/2022 Patient Msg Vascular Surg Dept [address] [place] [address] Tiarra Lopez APRN.DRY GOODS INSPECTOR [address] [place] [address] Appointment Cancellation Request Social History Tobacco Use [...] ot on file 10/01/2022 Data from: https://www.[email or web address].medicine.[email or web address].edu/. Last address used for calculation [address] [...] 10:00 AM EDT Office Visit Cardiology [address] [place], [place] [phone] Isaías Kinney MD [address] [place] [phone] DX: Chronic diastolic heart failure documented as of this encounter Visit Diagnoses Not on filedocumented in this encounter Care Teams Foreclosure Home Inspector Relationship Specialty Start Date End Date Samm Serrano MD PCP - General Family Medicine 05/30/12 Tom Gonzalez [address] [place] [address] Primary Staff Physician Cardiology 12/02/18 Andresa Pierre MD [address] [place] [address] Primary Staff Physician Cardiology 04/26/23 Virgil Carrillo MD [address] [place] [phone] Primary Staff Physician Cardiology 10/29/23 Jethro Mendoza MD [address] [place] [address] Primary Staff Physician Cardiology 12/26/23 Isaías Kinney MD [address] [place] [address] Primary Staff Physician Cardiology 01/10/24 documented as of this encounter
--- OUTSIDE RECORDS SUMMARY | 2025-03-04 15:19 | XMS_ITS | Encounter Summary ---
Author Organization [facility] Address [address] [place] [address] Care Team Providers Care Networking Administrator Name Role Phone Samm Serrano MD Primary Care Provider [phone] Inocencio Falk DO Unavailable [phone] Tom Gonzalez Unavailable [phone] Andreas Pierre MD Unavailable Virgil Carrillo MD Unavailable Jethro Mendoza MD Unavailable Isaías Kinney MD Unavailable [phone] Source Comments In the event this information is protected by the Federal Confidentiality of Alcohol and Drug AbusePatient Records regulations: The Federal rules restrict any use of the information to criminally investigate or prosecute any alcohol or drug abuse patient.[facility] Encounter Details Date Type Department Care Team (Late st Contact Info) Description 06/09/2013 Patient Msg Medical Records [address] [place] [address] Provider, Ccf RE: Request an Appointment Social History Tobacco Use Types Packs/Day Years [...] 10:00 AM EDT Office Visit Cardiology [address] [place] [address] Isaías Kinney MD [address] [place] [address] DX: Chronic diastolic heart failure documented as of this encounter Visit Diagnoses Not on filedocumented in this encounter Care Teams Networking Administrator Relationship Specialty Start Date End Date Samm Serrano MD PCP - General Family Medicine 05/30/12 Inocencio Falk DO [address] [place] [address] Primary Staff Physician Cardiology 12/15/14 Tom Gonzalez [address] [place] [address] Primary Staff Physician Cardiology 12/02/18 Andreas Pierre MD [address] [place] [address] Primary Staff Physician Cardiology 04/26/23 Virgil Carrillo MD [address] [place] [address] Primary Staff Physician Cardiology 10/29/23 Jethro Mendoza MD [address] [place] [address] Primary Staff Physician Cardiology 12/26/23 Isaías Kinney MD [address] [place] [address] Primary Staff Physician Cardiology 01/10/24 documented as of this encounter
--- OUTSIDE RECORDS SUMMARY | 2025-03-04 15:19 | XMS_ITS | Encounter Summary ---
Author Organization [facility] Address [address] [place] [address] Care Team Providers Care Cleaner Industrial Name Role Phone Samm Serrano MD Primary Care Provider +-4 Tom Gonzalez Unavailable [phone] Andreas Pierre MD Unavailable Virgil Carrillo MD Unavailable Jethro Mendoza MD Unavailable Isaías Kinney MD Unavailable [phone] Source Comments In the event this information is protected by the Federal Confidentiality of Alcohol and Drug AbusePatient Records regulations: The Federal rules restrict any use of the information to criminally investigate or prosecute any alcohol or drug abuse patient.[facility] Encounter Details Date Type Department Care Team (Late st Contact Info) Description 11/28/2022 Patient Msg Cardiology [address] [place], [place] [id number] Provider, Ccf Appointment Cancellation Request Social History [...] N ot on file 10/01/2022 Data from: https://www.neighborhoodatlas.medicine.[facility]/. Last address used for calculation 9[address] [...] 10:00 AM EDT Office Visit Cardiology [address] [place], [place] [phone] Isaías Kinney MD [address] [place] [address] DX: Chronic diastolic heart failure documented as of this encounter Visit Diagnoses Not on filedocumented in this encounter Care Teams Cleaner Industrial Relationship Specialty Start Date End Date Samm Serrano MD PCP - General Family Medicine 05/30/12 Tom Gonzalez [address] [place] [address] Primary Staff Physician Cardiology 12/02/18 Andreas Pierre MD [address] [place], [place] [id number] Primary Staff Physician Cardiology 04/26/23 Virgil Carrillo MD [facility]0 [place] [phone] Primary Staff Physician Cardiology 10/29/23 Jethro Mendoza MD [address] [place] [phone] Primary Staff Physician Cardiology 12/26/23 Isaías Kinney MD [address] [place] [phone] Primary Staff Physician Cardiology 01/10/24 documented as of this encounter
--- OUTSIDE RECORDS SUMMARY | 2025-03-04 15:19 | XMS_ITS | Encounter Summary ---
Author Organization [facility] Address [address] [place] [address] Care Team Providers Care Rotor Pilot Name Role Phone Samm Serrano MD Primary Care Provider +-4 Tom Gonzalez Unavailable [phone] Andreas Pierre MD Unavailable Virgil Carrillo MD Unavailable Jethro Mendoza MD Unavailable Isaías Kinney MD Unavailable Source Comments In the event this information is protected by the Federal Confidentiality of Alcohol and Drug AbusePatient Records regulations: The Federal rules restrict any use of the information to criminally investigate or prosecute any alcohol or drug abuse patient.[facility] Encounter Details Date Type Department Care Team (Late st Contact Info) Description 11/29/2022 Patient Msg Cardiology [address] [place], [place] [phone] Provider, Ccf Appointment Cancellation Request Social History [...] N ot on file 10/01/2022 Data from: https://www.neighborhoodatlas.medicine.[facility]/. Last address used for calculation [address] [...] Assessment Author No 03/25/2019 11:00 AM Jia Cralson)ARIES * Do you have difficulty dressing or [...] 10:00 AM EDT Office Visit Cardiology [address] [place], [place] [phone] Isaías Kinney MD [address] [place] [address] DX: Chronic diastolic heart failure documented as of this encounter Visit Diagnoses Not on filedocumented in this encounter Care Teams Rotor Pilot Relationship Specialty Start Date End Date Samm Serrano MD PCP - General Family Medicine 05/30/12 Tom Gonzalez [address] [place] [address] Primary Staff Physician Cardiology 12/02/18 Andreas Pierre MD [address] [place], [place] [phone] Primary Staff Physician Cardiology 04/26/23 Virgil Carrillo MD [facility] [place] [phone] Primary Staff Physician Cardiology 10/29/23 Jethro Mendoza MD [address] [place] [phone] Primary Staff Physician Cardiology 12/26/23 Isaías Kinney MD [address] [place] [phone] Primary Staff Physician Cardiology 01/10/24 documented as of this encounter
--- OUTSIDE RECORDS SUMMARY | 2025-03-04 15:19 | XMS_ITS | Encounter Summary ---
Author Organization [facility] Address [address] [place] [address] Care Team Providers Care Adjunct Communications Faculty Member Name Role Phone Samm Serrano MD Primary Care Provider +-4 Tom Gonzalez Unavailable [phone] Andreas Pierre MD Unavailable Virgil Carrillo MD Unavailable Jethro Mendoza MD Unavailable Isaías Kinney MD Unavailable [phone] Source Comments In the event this information is protected by the Federal Confidentiality of Alcohol and Drug AbusePatient Records regulations: The Federal rules restrict any use of the information to criminally investigate or prosecute any alcohol or drug abuse patient.[facility] Encounter Details Date Type Department Care Team (Late st Contact Info) Description 11/28/2022 Patient Msg Vascular Surg Dept [address] [place] [address] Tiarra Lopez APRN.FARE REGISTER REPAIRER [address] [place] [address] Appointment Cancellation Request Social History Tobacco Use [...] N ot on file 10/01/2022 Data from: https://www.neighborhoodatlas.medicine.[facility].edu/. Last address used for calculation [...] 10:00 AM EDT Office Visit Cardiology [address] [place], [place] [phone] Isaías Kinney MD [address] [place] [phone] DX: Chronic diastolic heart failure documented as of this encounter Visit Diagnoses Not on filedocumented in this encounter Care Teams Adjunct Communications Faculty Member Relationship Specialty Start Date End Date Samm Serrano MD PCP - General Family Medicine 05/30/12 Tom Gonzalez [address] [place] [address] Primary Staff Physician Cardiology 12/02/18 Andreas Pierre MD [address] [place] [address] Primary Staff Physician Cardiology 04/26/23 Virgil Carrillo MD [address] [place] [phone] Primary Staff Physician Cardiology 10/29/23 Jethro Mendoza MD [address] [place] [address] Primary Staff Physician Cardiology 12/26/23 Isaías Kinney MD [address] [place] [address] Primary Staff Physician Cardiology 01/10/24 documented as of this encounter
--- OUTSIDE RECORDS SUMMARY | 2025-03-04 15:19 | XMS_ITS | Encounter Summary ---
Author Organization [facility] Address [address] [place] [address] Care Team Providers Care Clay Dry Press Mixer Operator Name Role Phone Samm Serrano MD Primary Care Provider +-4 Tom Gonzalez Unavailable [phone] Andreas Pierre MD Unavailable Vrigil Carrillo MD Unavailable Jethro Mendoza MD Unavailable Isaías Kinney MD Unavailable [phone] Source Comments In the event this information is protected by the Federal Confidentiality of Alcohol and Drug AbusePatient Records regulations: The Federal rules restrict any use of the information to criminally investigate or prosecute any alcohol or drug abuse patient.[facility] Encounter Details Date Type Department Care Team (Late st Contact Info) Description 11/28/2022 Patient Msg Cardiology [address] [place], [place] [phone] Provider, Ccf Appointment Cancellation Request Social History [...] N ot on file 10/01/2022 Data from: https://www.neighborhoodatlas.medicine.[facility]/. Last address used for calculation [address] [...] AM EDT Office Visit Cardiology [address] [place], [place] [phone] Isaías Kinney MD [address] [place] [address] DX: Chronic diastolic heart failure documented as of this encounter Visit Diagnoses Not on filedocumented in this encounter Care Teams Clay Dry Press Mixer Operator Relationship Specialty Start Date End Date Samm Serrano MD PCP - General Family Medicine 05/30/12 Tom Gonzalez [address] [place] [address] Primary Staff Physician Cardiology 12/02/18 Andreas Pierre MD [address] [place], [place] [phone] Primary Staff Physician Cardiology 04/26/23 Virgil Carrillo MD [facility]0 [place] [phone] Primary Staff Physician Cardiology 10/29/23 Jethro Mendoza MD [address] [place] [phone] Primary Staff Physician Cardiology 12/26/23 Isaías Kinney MD [address] [place] [phone] Primary Staff Physician Cardiology 01/10/24 documented as of this encounter
--- OUTSIDE RECORDS SUMMARY | 2025-03-04 15:19 | XMS_ITS | Encounter Summary ---
Author Organization [facility] Address [address] [place] [address] Care Team Providers Care Head Doffer Name Role Phone Samm Serrano MD Primary Care Provider +-4 Tom Gonzalez Unavailable [phone] Andreas Pierre MD Unavailable Virgil Carrillo MD Unavailable Jethro Mendoza MD Unavailable Isaías Kinney MD Unavailable [phone] Source Comments In the event this information is protected by the Federal Confidentiality of Alcohol and Drug AbusePatient Records regulations: The Federal rules restrict any use of the information to criminally investigate or prosecute any alcohol or drug abuse patient.[facility] Encounter Details Date Type Department Care Team (Late st Contact Info) Description 11/28/2022 Patient Msg Vascular Surg Dept [address] [place] [address] John Jefferson MD [address] [place] [address] Appointment Cancellation Request Social History Tobacco Use [...] N ot on file 10/01/2022 Data from: https://www.neighborhoodatlas.[facility].edu/. Last address used for calculation [address] [...] 10:00 AM EDT Office Visit Cardiology [address] [place], [place] [phone] Isaías Kinney MD [address] [place] [address] DX: Chronic diastolic heart failure documented as of this encounter Visit Diagnoses Not on filedocumented in this encounter Care Teams Head Doffer Relationship Specialty Start Date End Date Samm Serrano MD PCP - General Family Medicine 05/30/12 Tom Gonzalez [address] [place] [address] Primary Staff Physician Cardiology 12/02/18 Andreas Pierre MD [address] [place] [address] Primary Staff Physician Cardiology 04/26/23 Virgil Carrillo MD [address] [place], [place] [phone] Primary Staff Physician Cardiology 10/29/23 Jethro Mendoza MD [facility]0 [place] [address] Primary Staff Physician Cardiology 12/26/23 Isaías Kinney MD [address] [place] [address] Primary Staff Physician Cardiology 01/10/24 documented as of this encounter
--- OUTSIDE RECORDS SUMMARY | 2025-03-04 15:19 | XMS_ITS | Encounter Summary ---
Author Organization [facility] Address [address] [place] [address] Care Team Providers Care Ordnance Technician Name Role Phone Samm Serrano MD Primary Care Provider [phone] Inocencio Falk DO Unavailable [phone] Tom Gonzalez Unavailable [phone] Andreas Pierre MD Unavailable Virgil Carrillo MD Unavailable Jethro Mendoza MD Unavailable Isaías Kinney MD Unavailable [phone] Source Comments In the event this information is protected by the Federal Confidentiality of Alcohol and Drug AbusePatient Records regulations: The Federal rules restrict any use of the information to criminally investigate or prosecute any alcohol or drug abuse patient.[facility] Encounter Details Date Type Department Care Team (Late st Contact Info) Description 06/09/2013 Patient Msg Medical Records [address] [place] [address] Provider, Ccf Request an Appointment Social History Tobacco Use [...] 10:00 AM EDT Office Visit Cardiology [address] [place] [address] Isaías Kinney MD [address] [place] [phone] DX: Chronic diastolic heart failure documented as of this encounter Visit Diagnoses Not on filedocumented in this encounter Care Teams Ordnance Technician Relationship Specialty Start Date End Date Samm Serrano MD PCP - General Family Medicine 05/30/12 Inocencio Falk DO [address] [place] [phone] Primary Staff Physician Cardiology 12/15/14 Tom Gonzalez [address] [place] [address] Primary Staff Physician Cardiology 12/02/18 Andreas Pierre MD [address] [place] [address] Primary Staff Physician Cardiology 04/26/23 Virgil Carrillo MD [address] [place] [address] Primary Staff Physician Cardiology 10/29/23 Jethro Mendoza MD [address] [place] [address] Primary Staff Physician Cardiology 12/26/23 Isaías Kinney MD [address] [place] [address] Primary Staff Physician Cardiology 01/10/24 documented as of this encounter
--- OUTSIDE RECORDS SUMMARY | 2025-03-04 15:19 | XMS_ITS | Encounter Summary ---
Author Organization [facility] Address [address] [place] [address] Care Team Providers Care Director Of Counterintelligence Name Role Phone Samm Serrano MD Primary Care Provider +-4 Tom Gonzalez Unavailable [phone] Andreas Pierre MD Unavailable Virgil Carrillo MD Unavailable Jethro Mendoza MD Unavailable Isaías Kinney MD Unavailable [phone] Source Comments In the event this information is protected by the Federal Confidentiality of Alcohol and Drug AbusePatient Records regulations: The Federal rules restrict any use of the information to criminally investigate or prosecute any alcohol or drug abuse patient.[facility] Encounter Details Date Type Department Care Team (Late st Contact Info) Description 11/28/2022 Patient Msg Vascular Surg Dept [address] [place] [address] Tiarra Lopez APRN.TELEVISION EQUIPMENT OPERATOR [address] [place] [address] Appointment Cancellation Request Social History Tobacco Use [...] N ot on file 10/01/2022 Data from: https://www.neighborhoodatlas.medicine.[facility].edu/. Last address used for calculation 9[address] [...] 10:00 AM EDT Office Visit Cardiology [address] [place], [place] [phone] Isaías Kinney MD [address] [place] [phone] DX: Chronic diastolic heart failure documented as of this encounter Visit Diagnoses Not on filedocumented in this encounter Care Teams Director Of Counterintelligence Relationship Specialty Start Date End Date Samm Serrano MD PCP - General Family Medicine 05/30/12 Tom Gonzalez [address] [place] [address] Primary Staff Physician Cardiology 12/02/18 Andreas Pierre MD [address] [place] [address] Primary Staff Physician Cardiology 04/26/23 Virgil Carrillo MD [address] [place] [phone] Primary Staff Physician Cardiology 10/29/23 Jethro Mendoza MD [address] [place] [address] Primary Staff Physician Cardiology 12/26/23 Isaías Kinney MD [address] [place] [address] Primary Staff Physician Cardiology 01/10/24 documented as of this encounter
--- OUTSIDE RECORDS SUMMARY | 2025-03-04 15:19 | XMS_ITS | Encounter Summary ---
Author Organization [facility] Address [address] [place] [address] Care Team Providers Care Accounts Payable Supervisor Name Role Phone Samm Serrano MD Primary Care Provider +-4 Tom Gonzalez Unavailable [phone] Andreas Pierre MD Unavailable Virgil Carrillo MD Unavailable Jethro Mendoza MD Unavailable Isaías iKnney MD Unavailable [phone] Source Comments In the event this information is protected by the Federal Confidentiality of Alcohol and Drug AbusePatient Records regulations: The Federal rules restrict any use of the information to criminally investigate or prosecute any alcohol or drug abuse patient.[facility] Encounter Details Date Type Department Care Team (Late st Contact Info) Description 11/28/2022 Patient Msg Vascular Surg Dept [address] [place] [address] Tiarra Lopez APRN.HOT DOG VENDER [address] [place] [address] Appointment Cancellation Request Social History Tobacco Use [...] on file 10/01/2022 Data from: https://www.neighborhoodatlas.medicine.[facility].edu/. Last address used for calculation 9[address] [...] 10:00 AM EDT Office Visit Cardiology [address] [place], [place] [phone] Isaías Kinney MD [address] [place] [phone] DX: Chronic diastolic heart failure documented as of this encounter Visit Diagnoses Not on filedocumented in this encounter Care Teams Accounts Payable Supervisor Relationship Specialty Start Date End Date Samm Serrano MD PCP - General Family Medicine 05/30/12 Tom Gonzalez [address] [place] [address] Primary Staff Physician Cardiology 12/02/18 Andreas Pierre MD [address] [place] [address] Primary Staff Physician Cardiology 04/26/23 Virgil Carrillo MD [address] [place] [phone] Primary Staff Physician Cardiology 10/29/23 Jethro Mendoza MD [address] [place] [address] Primary Staff Physician Cardiology 12/26/23 Isaías Kinney MD [address] [place] [address] Primary Staff Physician Cardiology 01/10/24 documented as of this encounter
--- OUTSIDE RECORDS SUMMARY | 2025-03-04 15:19 | XMS_ITS | Encounter Summary ---
Author Organization [facility] Address [address] [place] [address] Care Team Providers Care Bonderizer Operator Name Role Phone Samm Serrano MD Primary Care Provider +-4 Tom Gonzalez Unavailable [phone] Andreas Pierre MD Unavailable Virgil Carrillo MD Unavailable Jethro Mendoza MD Unavailable Isaías Kinney MD Unavailable [phone] Source Comments In the event this information is protected by the Federal Confidentiality of Alcohol and Drug AbusePatient Records regulations: The Federal rules restrict any use of the information to criminally investigate or prosecute any alcohol or drug abuse patient.[facility] Encounter Details Date Type Department Care Team (Late st Contact Info) Description 11/28/2022 Patient Msg Vascular Surg Dept [address] [place] [address] John Jefferson MD [address] [place] [address] Appointment Cancellation Request Social History Tobacco Use [...] N ot on file 10/01/2022 Data from: https://www.neighborhoodatlas.[facility].edu/. Last address used for calculation [...] 10:00 AM EDT Office Visit Cardiology [address] [place], [place] [phone] Isaías Kinney MD [address] [place] [address] DX: Chronic diastolic heart failure documented as of this encounter Visit Diagnoses Not on filedocumented in this encounter Care Teams Bonderizer Operator Relationship Specialty Start Date End Date Samm Serrano MD PCP - General Family Medicine 05/30/12 Tom Gonzalez [address] [place] [address] Primary Staff Physician Cardiology 12/02/18 Andreas Pierre MD [address] [place] [address] Primary Staff Physician Cardiology 04/26/23 Virgil Carrillo MD [address] [place], [place] [phone] Primary Staff Physician Cardiology 10/29/23 Jethro Mendoza MD [facility]0 [place] [address] Primary Staff Physician Cardiology 12/26/23 Isaías Kinney MD [address] [place] [address] Primary Staff Physician Cardiology 01/10/24 documented as of this encounter
--- OUTSIDE RECORDS SUMMARY | 2025-03-04 15:19 | XMS_ITS ---
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 Both and patient are where the most contact clinical application consultant prior to taking the medication. Viagra 1/2 [...] not to proceed. ==== 07/17/2019 ==== HIghest Ivory Grade: 3+ 4 equal 7 # of cores Positive: 2 Laterality: Right Patient's PSA is: Approximately 13 Prostate Volume is: 20.7 cc PSA density is: Approximately 0.6 Clinical stage is: Clinical T1c NCCN clinical risk group is: Favorable intermediate risk [facility] Nomogram probability for Lymph Node Metastasis: 2% Location: bilateral Severity: moderate Quality: NCCN guidelines unfavorable intermediate risk Based on social security life tables patient is predicted life expectancy is: 10 yrs Baseline urinary function is: good Baseline sexual function is: cannot sustain erection Comorbidities: cardiac---[place], Has AICD ==== 07/17/2019 ==== patient follow-up outside urologist as well as outside radiation oncologist. 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 PSA has fluctuate anywhere from 5 to approximately 13. Most recent PSA that I have of record is 12.3 in October 2014. Subsequent biopsy December 2018 2 course [place] 3 + 4 equal 7. Right side. [...] Referral to be made -per patient choice [facility]. 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 Plan: Aggressive risk factor management. See CAD section. Sweating 11/17/2012 10/10/2023 Overview (10/10/2023): History: Developed cold sweat ~ 1100 at rest during restorationist on 11/16. There was no nausea, chest pain, jaw pain, shortness of breath, or lightheadedness. This is similar to his symptoms when patient had STEMI in 04/2012. Patient presented to [facility] at 1200. EKG showed q waves in III, aVF; ST depression in I, aVL; ST elevation V3, V4, V5. On arrival to [facility] his EKG showed resolution of ST elevation in V4 and V5. His troponin 0.367 at OSH (? Troponin I); but has been negative at [facility] Main campus. Assessment: Possible atypical manifestations type II demand ischemia in setting of recent dehydration from profuse diarrhea or residual symptoms of recent illness. Cold sweat resolved after arrival. Plan: Trend cardiac enzymes, monitor clinical symptoms, and serial EKG's as needed. If continue to worsen clinically, would proceed to [facility]. 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 LFTs slightly up. No complaints. Continue. Current Treatment and Therapy Plans No current plan information found. Past Treatment and Therapy Plans No past plan information found. Lifetime Dose Tracking * Chemical Lifetime Dose Automatic Entry Manual Entr y Fluoro Time 6.75 minutes 0 minutes 6.75 minutes Air Kerma 49.81 mGy 0 mGy 49.81 mGy
--- OUTSIDE RECORDS SUMMARY | 2025-03-04 15:19 | XMS_ITS | Encounter Summary ---
Author Organization [facility] Address [address] [place] [address] Care Team Providers Care Port Surveyor Name Role Phone Samm Serrano MD Primary Care Provider +-4 Tom Gonzalez Unavailable [phone] Andreas Pierre MD Unavailable Virgil Carrillo MD Unavailable Jethro Mendoza MD Unavailable Isaías Kinney MD Unavailable [phone] Source Comments In the event this information is protected by the Federal Confidentiality of Alcohol and Drug AbusePatient Records regulations: The Federal rules restrict any use of the information to criminally investigate or prosecute any alcohol or drug abuse patient.[facility] Encounter Details Date Type Department Care Team (Late st Contact Info) Description 11/29/2022 Patient Msg Cardiology [address] [place] [address] Provider, Ccf Appointment Cancellation Request Social History [...] N ot on file 10/01/2022 Data from: https://www.neighborhoodatlas.medicine.[facility]/. Last address used for calculation [address] [...] 10:00 AM EDT Office Visit Cardiology [address] [place], [place] [phone] Isaías Kinney MD [address] [place] [address] DX: Chronic diastolic heart failure documented as of this encounter Visit Diagnoses Not on filedocumented in this encounter Care Teams Port Surveyor Relationship Specialty Start Date End Date Samm Serrano MD PCP - General Family Medicine 05/30/12 Tom Gonzalez [address] [place] [address] Primary Staff Physician Cardiology 12/02/18 Andreas Pierre MD [address] [place], [place] [address] Primary Staff Physician Cardiology 04/26/23 Virgil Carrillo MD [facility] [place] [phone] Primary Staff Physician Cardiology 10/29/23 Jethro Mendoza MD [address] [place] [phone] Primary Staff Physician Cardiology 12/26/23 Isaías Kinney MD [address] [place] [phone] Primary Staff Physician Cardiology 01/10/24 documented as of this encounter
--- OUTSIDE RECORDS SUMMARY | 2025-03-04 15:20 | XMS_ITS | Patient Health Record ---
Author Organization Corporate Office Address [address] [place] [address] [address] [place] [address] Care Team Providers Care Treasury Specialist Name Role Phone Samm Serrano MD Primary Care Provider Laila Juan DO Allergies No Known Allergies Results Component Value Reference Range Notes Free T3 Reviewed date:01/21/2025 05:20:30 PM Interpretation: Performing Lab: Notes/Report: Free T3 2.15 Free T4 Reviewed date:01/21/2025 05:20:30 PM Interpretation: Performing Lab: Notes/Report: Free T4 1.29 TSH (Thyroid Stimulating Hor berenice) Reviewed date:01/21/2025 05:20:30 PM Interpretation: Performing Lab: Notes/Report: TSH 8.64 TSH (Thyroid Stimulating Hor berenice) Reviewed date:12/30/2023 05:22:10 PM Interpretation: Performing Lab: Notes/Report: TSH 0.545 Free T3 Reviewed date:12/30/2023 05:22:10 PM Interpretation: Performing Lab: Notes/Report: Free T3 4.33 Free T4 Reviewed date:12/28/2023 10:15:08 PM Interpretation: Performing Lab: Notes/Report: Free T4 0.97 Reason For Referral No Information Medications Medication SIG (Take, Route, Frequency, Duration) Notes Start Date End Date Status Thyroid 15 mg TAKE 1 TABLET BY STEVEN TH ON AN EMPTY STOMACH DAILY orally daily for 90 days Active Lisinopril 5 MG 1 tablet Orally Once a day for 30 day(s) Not-Taking Turmeric Not-Taking Thyroid 60 mg TAKE 1 TABLET BY STEVEN TH DAILY orally daily for 90 days Active Farxiga 10 MG 1 tablet Orally Once a day Active Spironolactone 25 MG 0.5 tabs Orally Not-Taking Metoprolol Succinate ER 25 MG 1 tablet Orally Once a day Active Vitamin D Not-Taking Magnesium Active Vitamin C Not-Taking Zinc 100 MG 1 tablet Orally Once a day for 30 day(s) Not-Taking Atorvastatin Calcium 40 MG 1 tablet Oral ly Once a day for 30 day(s) Active Torsemide 20 MG as directed Orally 2 tablets twice daily Active Ecotrin Low Strength 81 MG 1 tablet Oral ly Once a day Active Iron (Ferrous Sulfate) 325 (65 Fe) MG 1 tablet Orally Once a day Not-Taking Co Q 10 10 MG as directed Orally Active Farxiga 10 MG 1 tablet Orally Once a day Not-Taking Ezetimibe 10 MG 1 tablet Orally Once a day Active 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 Thyroid 90 MG 1 tablet on an empty stomach Orally Once a day for 90 days 08/01/2021 Not-Taking Eliquis 5 MG as directed Orally twice a day Active Multivitamin Not-Yg ing Social History Tobacco Use: Social History Observation Description Date Details (start date - stop date) Former Smoker NA - NA Smoking Question Answer Notes Are you a: Former Smoker Problems Problem Type SNOMED Code ICD Code Onset Dates Problem Status W/U Status Risk Notes Problem Vitamin D deficiency (66847683) Vitamin D deficiency (E55.9) Active confirmed Problem Fatigue (48369630) Other fatigue (R53.83) Active confirmed Problem Coronary artery disease (58682266) Coronary artery disease (I25.10) Active confirmed Problem Autoimmune thyroiditis (59388625) Autoimmune thyroiditis (E06.3) Active confirmed Problem Malignant tumor of prostate (586645924) Prostate CA (C61) Active confirmed Vital Signs Blood pressure diastolic 60 mm Hg 08/04/2024 Weight-kg 79.15 kg 08/04/2024 Height 73 in 08/04/2024 Blood pressure systolic 98 mm Hg 08/04/2024 Weight 174.5 lbs 08/04/2024 BMI 23.02 kg/m2 08/04/2024 Encounters Encounter Location Date Provider Diagnosis [address] [facility] [address] [place] [address] 09/25/2024 Laila Marina [address] [facility] [address] [place] [address] 01/20/2025 Laila Marina 06 [facility] [address] [place] [address] 09/27/2024 Laila Marina [address] [facility] [address] [place] [address] 09/27/2024 Laila Marina [address] [facility] [address] [place] [address] 09/28/2024 Laila Marina 06 [facility] [address] [place] [address] 11/25/2024 Laila Marina [address] [facility] [address] [place] [address] 01/26/2025 Laila Marina [address] [facility] [address] [place] [address] 08/04/2024 Laila Marina Autoimmune thyroiditis E06.3 Assessments Encounter Date Diagnosis (ICD Code) Assessment Notes Treatment Notes Treatment Clinical Notes Section Notes 08/04/2024 Autoimmune thyroiditis (ICD-10 - E06.3) Take thryoid on empty stomach - an hour before eating or 2 hours after Repeat thyroid 2-3 mo after starting Amiodarone (if put on) Plan Of Treatment Pending Test Test Name Order Date TSH 07/07/2019 Polysomnogram, diagnostic overnight, att ended (Sleep Study) 08/18/2015 Free T3 12/31/2017 Free T3 07/07/2019 Free T4 07/07/2019 Free T4 12/31/2017 TSH (Thyroid Stimulating Hormone) 2017 Lipid Panel 08/27/2018 Vitamin D 25-Hydroxy 08/27/2018 Next Appt Details Provider Name:Laila Nieveslilliana quintana, 08/03/2025 03:00:00 PM, [address] [place], [address], Insurance Providers Payer Name Payer Address Payer Phone Subscriber Number Group Number Insured Name Patient Relationship to Insured Coverage Start Date Coverage End Date MEDICARE PART B [address] [place] [address] [id number] José Miguel Antonio Self - patient is the insured [facility] [place] SUPPLEMEN T [address] [place] [phone] [id number] José Miguel Antonio Self - patient is the insured [facility] [place] [address] [address] [place] [address] [id number] José Miguel Antonio Self - patient is the insured Medical (General) History Medical History History ICD Code Hypothyroidism heart disease high blood pressure chronic kidney disease prostate cancer Surgical History Surgery Date(Month/Year) defibrillator/pacemaker placement 2018 heart cath 02/2019 carotid endarterectomy-right 05/2012 triple bypass 2011 Hospitalization History Reason Date(Month/Year) water retention 07/2024 stroke 08/2021 heart attack 2011
--- OUTSIDE RECORDS SUMMARY | 2025-03-04 15:20 | XMS_ITS | Encounter Summary ---
Author Organization [facility] Address [address] [place] [address] Care Team Providers Care Postal Supervisor Name Role Phone Samm Serrano MD Primary Care Provider [phone] Reason for Visit * Reason Comments Med Refill Encounter Details Date Type Department Care Team (Late st Contact Info) Description 07/05/2023 Refill [facility] Heart at [facility] [address] [place] [address] Ozzie Crain MD [address] [facility] [address] [facility] [place] [address] Coronary artery disease, unspecified vessel or lesion type, unspecified whether angina present, unspecified whether white earth or transplanted heart; Carotid stenosis, asymptomatic, left; 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 ([facility]) Social History Tobacco Use Types Packs/Day Years Used Date Smoking Tobacco: Former Cigarettes Smokeless Tobacco: Never Alcohol Use Standard Drinks/Week Comments Not Currently 0 (1 standard drink = 0.6 oz pur e alcohol) Sex and Gender Information Value Date Recorded Sex Assigned at Not on file Legal Sex Male 10:54 PM EDT Gender Identity Not on file Sexual Orientation Not on file documented as of this encounter Plan of Treatment Not on file documented as of this encounter Visit Diagnoses Diagnosis Coronary artery disease, unspecified vessel or lesion type, unspecified whether angina present, unspecified whether [place] or transplanted heart Carotid stenosis, asymptomatic, left 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 (CMS/HCC) documented in this encounter Care Teams Postal Supervisor Relationship Specialty Start Date End Date Samm Serrano MD [address] [facility] [place] [address] PCP - General 05/16/22 documented as of this encounter
--- OUTSIDE RECORDS SUMMARY | 2025-03-04 15:20 | XMS_ITS ---
Author Organization [facility] Address [address] [place] [address] Care Team Providers Care Sign Language Interpreter Name Role Phone Samm Serrano MD Primary Care Provider [phone] Tom Gonzalez Unavailable [phone] Andreas Pierre MD Unavailable Vrigil Carrillo MD Unavailable Jethro Mendoza MD Unavailable Isaías Kinney MD Unavailable [phone] Active Problems Patient Care Coordination No te Formatting of this note migh t be different from the original. HISTORY: José Miguel Antonio Jr. 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 Wei for frequent PVCs (burden 27% in 08/2024) and NSVT has been observed on device checks. It was felt that the large burden was likely a consequence of worsening LV function from myocardial stress. He is not a candidate for PVC ablation due to known LV thrombus. Patient had been started on amiodarone ~08/31/24 which was discontinued 4 days later due to a rash on his upper back. Patient then was again recently hospitalized for acute decompensated heart failure at [facility] 09/12/24-09/16/24. During this hospitalization he was diuresed and discharged home. Remote device transmission then revealed that patient had an ICD shock for VT on 09/16/24 at 6:22 am. He was reportedly not on a continuous leathersmith at the time. He had a total of 21 VT events with rates 214-231 bpm, 20 of which were successfully treated with ATP x1 between 09/14/24-10/10/24. Dr. Wei recommended admission for further management of ventricular tachycardia and recurrent acute decompensated heart failure. HOSPITAL COURSE: The patient presented to the [facility] ED 09/17/24 after being notified of an ICD shock and was admitted to the inpatient Cardiac Electrophysiology service. He was started on mexiletine 200 mg TID. In-person device check on 09/18/24 revealed 1 treated episode of VT that violated the VF zone ~6pm on 09/17/24, initially treated with unsuccessful ATPx1 before it was terminated with a 41J shock. Patient was noted with be in acute decompensated heart failure. NTproBNP 36,570. He was given multiple boluses of high dose IV lasix then started on lasix gtt initially with suboptimal response. Lasix gtt was increased to 20 mg/hr. Heart Failure Cardiology was consulted. TTE on 09/18 demonstrated LVEF 23%, moderate RV dysfunction, s/p Mitraclip with residual moderate MR, moderate TR and dilated aorta with max dimension 4.3 cm IMPRESSION/PLAN: Ventricular tachycardia ICD shock - Remote device check: 2 episodes of VT treated with ATP x1 successfully; 1 episode of VT treated with 41J shock on 09/16/24 - Device check 09/18/24: 1 treated episode of VT that violated the VF zone ~6pm on 09/17/24, initially treated with unsuccessful ATPx1 before it was terminated with a 41J shock - EKG: SR 62 bpm, QRS 124 ms, QT/QTc 476/483 ms - Replete electrolytes for goal K>4.0, Magnesium>2.0 - No recurrent VT on continuous telemetry monitoring - Continue metoprolol succinate - Started mexiletine 200 mg TID - Prior rash on amiodarone; allergy consulted for assessment - Stress PET pending - Not a candidate for VT ablation given LV thrombus - Discuss in VT rounds 09/21 Acute on chronic HFrEF Moderate left pleural effusion CAD, ischemic cardiomyopathy - NTproBNP 36,570 - TTE 09/18/24: EF 23%, moderate RV dysfunction, s/p Mitraclip with residual moderate MR, moderate TR, dilated aorta with max dimension 4.3 cm - Dry weight: 174 lbs; weight on admission: 178 lbs - Appears hypervolemic - GDMT: - Beta jasbir: metoprolol succinate 25 mg daily - MARGARETTE/ARB/ARNI: none - MRA: spironolactone 12.5 mg daily - SGLT2i: Farxiga 10 mg daily - Diuretic: lasix gtt 20 mg/hr; IV diuril 500 mg Q48hrs x3 doses - HF consulted: recommend ischemic workup with stress PET and RHC LV thrombus - Transition from Eliquis to heparin gtt CKD stage 3b - Baseline sCr 1.9-2.2 - Close monitoring while aggressively diuresing THINGS TO DO/COMMUNICATE: Started on mexiletine for recurrent VT and ICD shocks HF consulted for ADHF, awaiting stress PET and RHC Not a candidate for VT ablation given LV thrombus Discuss in VT rounds 09/21 Problem Noted Date Diagnosed Date Hypokalemia 09/24/2024 Acquired hypothyroidism 09/23/2024 Palliative care by specialist 09/22/2024 Dysgeusia 09/22/2024 Dyspepsia 09/22/2024 Acute renal failure 09/22/2024 Metabolic acidosis 09/22/2024 Hyponatremia 09/22/2024 Hypervolemia 09/22/2024 ICD (implantable cardioverter-defibrillator) dis charge 09/18/2024 VT (ventricular tachycardia) 09/17/2024 Frequent PVCs 07/23/2024 Acute decompensated heart failure 07/21/2024 Anemia due to chronic blood loss 05/16/2024 Anemia of chronic disease 05/15/2024 Hematochezia 05/14/2024 Gastrointestinal hemorrhage 05/11/2024 Anemia due to blood loss 05/09/2024 VHD (valvular heart disease) 05/09/2024 At risk for delirium 05/09/2024 Pleural effusion on left 05/08/2024 S/P mitral valve clip implantation 05/07/2024 Cardiomyopathy, ischemic 05/07/2024 Acute blood loss anemia 05/06/2024 LV (left ventricular) mural thrombus 05/06/2024 Generalized weakness 05/06/2024 Amaurosis fugax 03/02/2024 Atrial fibrillation 03/02/2024 TIA (transient ischemic attack) 03/01/2024 Moderate mitral regurgitation 02/15/2024 Dyspnea, unspecified 02/07/2024 Non-rheumatic mitral regurgitation 02/07/2024 Stage 3b chronic kidney disease 01/10/2024 Malnutrition of moderate degree 12/26/2023 Type 2 diabetes mellitus wit h diabetic chronic kidney disease, unspecified CKD stage, unspecified whether barmaid insulin use 04/26/2023 Stroke (cerebrum) 09/03/2022 Chronic systolic heart failure 09/03/2022 Carotid stenosis, asymptomatic, bilateral 2021 Syncope 03/18/2019 Sweating 11/17/2012 Overview (11/17/2012): History: Developed cold sweat ~ 1100 at rest during restoration on 11/16. There was no nausea, chest pain, jaw pain, shortness of breath, or lightheadedness. This is similar to his symptoms when patient had STEMI in 04/2012. Patient presented to [facility] at 1200. EKG showed q waves in III, aVF; ST depression in I, aVL; ST elevation V3, V4, V5. On arrival to [facility] his EKG showed resolution of ST elevation in V4 and V5. His troponin 0.367 at OSH (? Troponin I); but has been negative at [facility] Main campus. Assessment: Possible atypical manifestations type II demand ischemia in setting of recent dehydration from profuse diarrhea or residual symptoms of recent illness. Cold sweat resolved after arrival. Plan: Trend cardiac enzymes, monitor clinical symptoms, and serial EKG's as needed. If continue to worsen clinically, would proceed to [facility]. Coronary artery disease invo lving coronary bypass graft of [place] heart without angina pectoris 11/17/2012 Acute on chronic systolic congestive heart failu re 11/17/2012 Overview (11/17/2012): History: Acute systolic heart failure in setting of [place] in 04/2012 LVEF 42% by ECHO 06/2012 Participation in cardiac rehab since 09/2012 NYHA class II Assessment: Currently compensated and euvolemic. Bedside ECHO reveals preserved LVEF. Plan: Continue metoprolol XL 25 mg daily and lisinopril 2.5 mg daily Review formal ECHO. PVD (peripheral vascular disease) 11/17/2012 Overview (11/17/2012): History: Critical stenosis of Rt ICA s/p Rt CEA 06/2012 ICA 60-79% stenosis Assessment: Currently asymptomatic. Plan: Aggressive risk factor management. See CAD section. S/P CABG (coronary artery bypass graft) 06/17/20 12 Occlusion and stenosis of ca rotid artery without mention of cerebral infarction 06/16/2012 Atrial fib/flutter, transient 05/03/2012 Overview (05/06/2012): Acute. Stable. Developed SVT day of surgery converted to SR on IV Amiodarone. Currently SR. Continue BB and PO Amio Taper. Heart failure, acute systolic 05/01/2012 Overview (05/06/2012): Acute posterior STEMI LVEF 25%, NL RV. IABP placed in assistant laboratory director preop. D/c'd 05/02. Postpump TTE: LVEF 25-30%. Continue BB, ACEi and IV lasix. Na/fluid restrict. Strict I/O's. Daily weights. Carotid stenosis, 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, left 05/01/2012 Overview (07/03/2012): Bilateral carotid stenosis noted in pre-operative evaluation for CABG in 04/2012. Now admitted for planned right CEA with Dr. Jefferson. 07/01/2012 Right CEA- dressing clean, dry, and intact. DINORA draining serosang, continue ASA, diet today, plan for d/c tomorrow. Nausea, + emesis in morning with pain med administration on empty stomach. Tolerated lunch without problem. 07/02/12 HD stable, tolerating diet without further nausea. Incision CDI. Deemed suitable for discharge Preop testing 04/29/2012 Overview (04/30/2012): Images from the original note were not [...] SERVICE: 9:30 AM Checked: Wilma Mejia 04/30 SUMMARY 04/28/2012 Overview (11/17/2012): Presentation/Indication for admission/procedure: evaluation of possible ACS. PMH/PSH: CAD s/p posterior STEMI 04/2012 s/p CABG with OTTO to LAD, rSVG to PDA and OM 04/2012. Critical stenosis of Rt ICA s/p Rt CEA 06/2012 ICA 60-79% stenosis Had ~ 10 years of burning mid-sternal chest discomfort that goes up to his throat, with exertion prior to CABG. Ex-smoker 31 years (0.5 PPD, and pipes) quit 20 years ago. Procedure/OR performed (including complications): ECHO Brief Hospital Course/Narrative: See below Active Issues/New Events (dated): LVEF: 42% RVF: nl Impression/Plan: see below. Hyperlipidemia 04/28/2012 Overview (05/06/2012): Chronic. Stable. No meds preop. Had not seen physician in many years prior to surgery. LDL on admission 150. Started on lipitor 80mg postop for STEMI on admission. LFTs slightly up. No complaints. Continue. Atherosclerotic heart diseas e of [place] coronary artery with other forms of angina pectoris Overview (07/03/2012): s/p CABG x 3. Continue ASA, statin and BB. Current Treatment and Therapy Plans No current plan information found. Past Treatment and Therapy Plans ONCOLOGY REGIMEN Plan Name Start Date Discontinue Date Treatment Medications Discontinue Reason Plan Provider Cycles AMB LEUPROLIDE 45 D1 - Q175D 09/12/20 21 10/23/2022 leuprolide acetate (6 month) (LUPRON) Victor M Shen MD 1 of 2 cycles started Resolved Problems Problem Noted Date Diagnosed Date Resolved Date Prostate cancer 10/09/2017 10/01/2023 Stress hyperglycemia 05/01/2012 012 Overview (05/05/2012): Diet has been advanced , SSI and accuchecks Mechanically assisted ventilation 05/01/2012 05/02/2012 Overview (05/02/2012): 05/01/2012 optimize MV settings current settings 60%, peep 8 WTE 05/02/2012 Extubated and doing well without acute resp distress Hypotension 05/01/2012 05/03/2012 Overview (05/02/2012): 05/01/2012 titration of levophed for MAP 75-85 due to carotid stenosis fluid resuscitation as needed 05/02/2012 See cardiac insuff note Thrombocytopenia 05/01/2012 05/05/2012 Overview (05/03/2012): resolving Pf4 negative. Post-operative pain 05/01/2012 05/06/20 12 Overview (05/05/2012): acceptable pain control with Percocet , ultram, lido patches ST elevation myocardial infa rction (STEMI) of true posterior wall 04/28/2012 05/05/2012 Overview (05/03/2012): ST depressions in septal/anterior leads c/w posterior STEMI. TTE shows posterior wall motion abnormality. CKMB 54, Troponin T .37 on admission to [facility] Wide-complex tachycardia 04/28/2012 Overview (05/03/2012): Presented to OSH 04/28/12 in setting acute [place] with wide complex tachycardia SVT versus VT. Given adenosine x2 without effect, diltiazem bolus and infusion with no effect. Spontaneous conversion to NSR. Had short run of wide complex tachycardia upon arrival to [facility] from CICU. Pre-op evaluation 04/28/2012 05/01/2012 Overview (04/28/2012): Preoperative evaluation for CABG. Not ReDo -Carotids: Ordered -Vein Mapping: Ordered -Bedside PFTs: Ordered -Formal TTE: Ordered -CXR: Completed
--- OUTSIDE RECORDS SUMMARY | 2025-03-04 15:20 | XMS_ITS | Encounter Summary ---
Author Organization [facility] Address [address] [place] [address] Care Team Providers Care Quality Compliance Manager Name Role Phone Samm Serrano MD [...] any alcohol or drug abuse patient.[facility] Encounter Details Date Type Department Care Team (Late st Contact Info) Description 07/26/2024 Patient [facility] HB-[address] [place] [address] Tuyet Hernandez, [facility] Heart Failure Education Social History Tobacco Use Types Packs/Day Years Used Date Smoking Tobacco: Former Cigarettes 1 10 0 04/28/1972 - 04/28/1982 Pipe Passive Smoke Exposure: Never Smokeless Tobacco: Never Alcohol Use Standard Drinks/Week Comments Yes 0 (1 standard drink = 0.6 oz pur e alcohol) rarely [facility] Utilities Answer Date Recorded In the past 12 months has th e [employer], gas, oil, or water company threatened to [...] place to sleep or slept in a prison (including now)? No 03/02/2024 Housing Stability Vital Sign Answer Akbar e Recorded In the last 12 months, was t here a time when you were not able to pay the mortgage or rent on time? Yes 07/22/2024 In the past 12 months, how m any times have you moved where you were living? 0 07/22/2024 At any time in the past 12 m [facility], were you homeless or living in a prison (including now)? Yes 07/22/2024 Area Deprivation Index Answer Date Rich rded National Score (1-100), lower number is lower ri sk 52 02/05/2024 State Score (1-10), lower number is lower risk 3 02/05/2024 Data from: https://www.neighborhoodatlas.medicine.[facility].edu/. Last address used for calculation [address] 02/05/2024 Sex and Gender Information [...] Date Author No 05/16/2024 2:47 PM EDT Keeley, Egl antina, RN documented in this encounter Plan of Treatment Upcoming Encounters Date Type Department Care Team (Late st Contact Info) Description 06/30/2025 10:00 AM EDT Office Visit Cardiology [address] [phone] Isaías Kinney MD [address] [place], [place] [phone] DX: Chronic diastolic heart failure documented as of this encounter Goals Goal Patient Goal Type Associated Problems Recent Progress Patient-Stated? Author Blood Pressure < 130/80 Blood Pressure 134/63( 025 3:00 PM EDT) Lidia Soto RN documented as of this encounter Visit Diagnoses Not on filedocumented in this encounter Care Teams Quality Compliance Manager Relationship Specialty Start Date End Date Samm Serrano MD PCP - General Family Medicine 05/30/12 Tom Gonzalez [address] [place] [address] Primary Staff Physician Cardiology 12/02/18 Andreas Pierre MD [address] [place], [place] [phone] Primary Staff Physician Cardiology 04/26/23 Virgil Carrillo MD [address] [place], [place] [phone] Primary Staff Physician Cardiology 10/29/23 Jethro Mendoza MD [address] [place], [place] [phone] Primary Staff Physician Cardiology 12/26/23 Isaías Kinney MD [address] [place] [address] Primary Staff Physician Cardiology 01/10/24 documented as of this encounter
--- OUTSIDE RECORDS SUMMARY | 2025-03-04 15:20 | XMS_ITS | Encounter Summary ---
Author Organization [facility] Address [address] [place] [address] Care Team Providers Care Environmental Control Administrator Name Role Phone Samm Serrano MD Primary Care Provider +-4 Tom Gonzalez Unavailable [phone] Andreas Pierre MD Unavailable Virgil Carrillo MD Unavailable Jethro Mendoza MD Unavailable Isaías Kinney MD Unavailable Source Comments In the event this information is protected by the Federal Confidentiality of Alcohol and Drug AbusePatient Records regulations: The Federal rules restrict any use of the information to criminally investigate or prosecute any alcohol or drug abuse patient.[facility] Encounter Details Date Type Department Care Team (Late st Contact Info) Description 08/06/2024 Patient Msg Cardiology [address] [place], [place] [phone] Provider, Juliann Marvel Social History Tobacco Use Types Packs/Day Years Used Date Smoking Tobacco: Former Cigarettes 1 10 0 04/28/1972 - 04/28/1982 Pipe Passive Smoke Exposure: Never Smokeless Tobacco: Never Alcohol Use Standard Drinks/Week Comments Yes 0 (1 standard drink = 0.6 oz pur e alcohol) rarely [facility] Utilities Answer Date Recorded In [...] place to sleep or slept in a mcfp (including now)? No 03/02/2024 Housing Stability Vital Sign Answer Akbar e Recorded In the last 12 months, was t here a time when you were not able to pay the mortgage or rent on time? Yes 07/22/2024 In the past 12 months, how m any times have you moved where you were living? 0 07/22/2024 At any time in the past 12 m [facility], were you homeless or living in a mcfp (including now)? Yes 07/22/2024 Area Deprivation Index Answer Date Rich rded National Score (1-100), lower number is lower ri sk 52 02/05/2024 State Score (1-10), lower number is lower risk 3 02/05/2024 Data from: https://www.neighborhoodatlas.[facility]/. Last address used for calculation [address] 02/05/2024 Sex and Gender Information [...] 2:47 PM EDT Campos Mina RN documented in this encounter Plan of Treatment Upcoming Encounters Date Type Department Care Team (Late st Contact Info) Description 06/30/2025 10:00 AM EDT Office Visit Cardiology [address] [place] [address] Isaías Kinney MD [address] [place], [place] [phone] DX: Chronic diastolic heart failure documented as of this encounter Goals Goal Patient Goal Type Associated Problems Recent Progress Patient-Stated? Author Blood Pressure < 130/80 Blood Pressure 134/63( 025 3:00 PM EDT) No Lidia Lo, ARIES documented as of this encounter Visit Diagnoses Not on filedocumented in this encounter Care Teams Environmental Control Administrator Relationship Specialty Start Date End Date Samm Serrano MD PCP - General Family Medicine 05/30/12 Tom Gonzalez [address] [place] [address] Primary Staff Physician Cardiology 12/02/18 Andreas Pierre MD [address] [place] [phone] Primary Staff Physician Cardiology 04/26/23 Virgil Carrillo MD [address] [place] [address] [phone] Primary Staff Physician Cardiology 10/29/23 [place] [address] [place] [address] Primary Staff Physician Cardiology 12/26/23 Isaías Kinney MD [address] [place] [address] Primary Staff Physician Cardiology 01/10/24 documented as of this encounter
--- OUTSIDE RECORDS SUMMARY | 2025-03-04 15:20 | XMS_ITS | Encounter Summary ---
Author Organization [facility] Address [address] [place] [id number] Care Team Providers Care Practice Specialist Name Role Phone Samm Serrano MD Primary Care Provider +-4 Tom Gonzalez Unavailable [phone] Andreas Pierre MD Unavailable Virgil Carrillo MD Unavailable Jethro Mendoza MD Unavailable Isaías Kinney MD Unavailable [phone] Source Comments In the event this information is protected by the Federal Confidentiality of Alcohol and Drug AbusePatient Records regulations: The Federal rules restrict any use of the information to criminally investigate or prosecute any alcohol or drug abuse patient.[facility] Encounter Details Date Type Department Care Team (Late st Contact Info) Description 05/23/2024 Get Medical Advice [facility] [address] [place] [address] Provider, Dirk out of pocket expenses Social History Tobacco Use Types Packs/Day Years Used Date Smoking Tobacco: Former Cigarettes 1 10 0 04/28/1972 - 04/28/1982 Pipe Passive Smoke Exposure: Never Smokeless Tobacco: Never Alcohol Use Standard Drinks/Week Comments Yes 0 (1 standard drink = 0.6 oz pur e alcohol) rarely [facility] Utilities Answer Date Recorded In the past 12 months has th e [employer], gas, oil, or water company threatened to shut off services in your home? No 05/11/2024 AUDIT-C Answer Date Recorded Q1: How often do you have a drink containing alc ohol? Monthly or less 04/15/2020 Q2: How many drinks containi ng alcohol do you have on a typical day when you are drinking? 1 or 2 04/15/2020 Frequency of Binge Drinking Not on file 03/18 PHQ-2 Answer Date Recorded PHQ-2 score 4 03/31/2024 Hunger Vital Sign Answer Date Recorded Within the past 12 months, y ou worried that your food would run out before you got the money to buy more. Never true 05/11/20 24 Within the past 12 months, t he food you bought just didn't last and you didn't have money to get more. Never true 05/11/2024 PRAPARE - Transportation Answer Date Re corded In the past 12 months, has l ack of transportation kept you from medical appointments or from getting medications? No 04/17 In the past 12 months, has l ack of transportation kept you from meetings, work, or from getting things needed for daily living? No 05/11/2024 Housing Stability Vital Sign Answer Akbar e [...] place to sleep or slept in a intermediate (including now)? No 03/02/2024 Housing Stability Vital Sign Answer Akbar e Recorded In the last 12 months, was t here a time when you were not able to pay the mortgage or rent on time? No 05/11/2024 In the past 12 months, how m any times have you moved where you were living? 1 05/11/2024 At any time in the past 12 m [facility], were you homeless or living in a intermediate (including now)? No 05/11/2024 Area Deprivation Index Answer Date Rich rded National Score (1-100), lower number is lower ri sk 52 02/05/2024 State Score (1-10), lower number is lower risk 3 02/05/2024 Data from: https://www.neighborhoodatlas.medicine.[facility]/. Last address used for calculation [address] 02/05/2024 Sex and Gender Information [...] 10:00 AM EDT Office Visit Cardiology [address] [place] [address] Isaías Kinney MD [address] [place], [place] [phone] DX: Chronic diastolic heart failure documented as of this encounter Goals Goal Patient Goal Type Associated Problems Recent Progress Patient-Stated? Author Blood Pressure < 130/80 Blood Pressure 134/63( 025 3:00 PM EDT) Lidia Soto, ARIES documented as of this encounter Visit Diagnoses Not on filedocumented in this encounter Care Teams Practice Specialist Relationship Specialty Start Date End Date Samm Serrano MD PCP - General Family Medicine 05/30/12 Tom Gonzalez [address] [place] [id number] Primary Staff Physician Cardiology 12/02/18 Andreas Pierre MD [address] [place], [place] [phone] Primary Staff Physician Cardiology 04/26/23 Virgil Carrillo MD [address] [place], [place] [phone] Primary Staff Physician Cardiology 10/29/23 Jethro Mendoza MD [address] [place] [address] Primary Staff Physician Cardiology 12/26/23 Isaías Kinney MD [facility] [place], [place] [phone] Primary Staff Physician Cardiology 01/10/24 documented as of this encounter
--- OUTSIDE RECORDS SUMMARY | 2025-03-04 15:20 | XMS_ITS | Encounter Summary ---
Author Organization [facility] Address [address] [place] [address] Care Team Providers Care Technical Manager Name Role Phone Samm Serrano MD Primary Care Provider +-4 Tom Gonzalez Unavailable [phone] Andreas Pierre MD Unavailable Virgil Carrillo MD Unavailable Jethro Mendoza MD Unavailable Isaías Kinney MD Unavailable [phone] Source Comments In the event this information is protected by the Federal Confidentiality of Alcohol and Drug AbusePatient Records regulations: The Federal rules restrict any use of the information to criminally investigate or prosecute any alcohol or drug abuse patient.[facility] Encounter Details Date Type Department Care Team (Late st Contact Info) Description 06/11/2024 Patient Msg Cardiology [address] [place] [address] Karon Claros MA Missed Remote Transmission Social History Tobacco Use Types Packs/Day Years Used Date Smoking Tobacco: Former Cigarettes 1 10 0 04/28/1972 - 04/28/1982 Pipe Passive Smoke Exposure: Never Smokeless Tobacco: Never Alcohol Use Standard Drinks/Week Comments Yes 0 (1 standard drink = 0.6 oz pur e alcohol) rarely [facility] Utilities Answer Date Recorded In the past 12 months has th e [employer], gas, oil, or water company threatened to [...] place to sleep or slept in a residential (including now)? No 03/02/2024 Housing Stability Vital [...] were you homeless or living in a residential (including now)? No 05/11/2024 Area Deprivation Index Answer Date Rich rded National Score (1-100), lower number is lower ri sk 52 02/05/2024 State Score (1-10), lower number is lower risk 3 02/05/2024 Data from: https://www.neighborhoodatlas.[facility]/. Last address used for calculation [address] 02/05/2024 Sex and Gender [...] 10:00 AM EDT Office Visit Cardiology [address] [place] [address] Isaías Kinney MD [address] [place], [place] [phone] DX: Chronic diastolic heart failure documented as of this encounter Goals Goal Patient Goal Type Associated Problems Recent Progress Patient-Stated? Author Blood Pressure < 130/80 Blood Pressure 134/63( 025 3:00 PM EDT) No Lidia Lo, ARIES documented as of this encounter Visit Diagnoses Not on filedocumented in this encounter Care Teams Technical Manager Relationship Specialty Start Date End Date Samm Serrano MD PCP - General Family Medicine 05/30/12 Tom Gonzalez [address] [place] [address] Primary Staff Physician Cardiology 12/02/18 Andreas Pierre MD [address] [place] [address] Primary Staff Physician Cardiology 04/26/23 Virgil Carrillo MD [address] [place], [place] [phone] Primary Staff Physician Cardiology 10/29/23 Jethro Mendoza MD [address] [place] [phone] Primary Staff Physician Cardiology 12/26/23 Isaías Kinney MD [address] [place] [address] Primary Staff Physician Cardiology 01/10/24 documented as of this encounter
--- OUTSIDE RECORDS SUMMARY | 2025-03-04 15:20 | XMS_ITS | Clinical Summary ---
Author Organization [facility] Address [address] [place] [address] Care Team Providers Care Pathologist Name Role Phone Samm Serrano MD Primary Care Provider [phone] Tom Gonzalez Unavailable [phone] Andreas Pierre MD Unavailable Virgil Carrillo MD Unavailable Efren Mendoza MD Unavailable Carmela Kinney MD Unavailable [phone] Allergies Active Allergy Reactions Criticality Noted Date Comments Adhesive Tape (Rosins) Rash Low 06/16/2012 Latex Rash 03/13/2019 Medications cetirizine (ZYRTEC) 10 mg tablet Take 1 tablet by mouth once daily as needed. 30 tablet 3 07/26/20 24 Active levothyroxine (SYNTHROID) 88 mcg tablet Take 1 tablet by mouth once daily. 90 tablet 09/25/19 25 Active mexiletine (MEXITIL) 150 mg capsule Take 150 mg by mouth two times a day. Active metoprolol succinate ER (TOPROL XL) 25 mg 24 hr tablet Take 12.5 mg by mouth once daily. Active apixaban (ELIQUIS) 2.5 mg tab(s) Take 1 tablet by mouth two times a day. 05/16/20 24 Active bumetanide (BUMEX) 2 mg tablet Take 2 mg by mouth two times a day. Active potassium chloride ER (KLOR-CON) 20 mEq tablet Take 20 mEq by mouth once daily. Active thiamine (VITAMIN B1) 100 mg tablet Take 100 mg by mouth once daily. Active dapagliflozin propanediol (FARXIGA) 10 mg tablet Take 1 tablet by mouth daily with breakfast. 90 tablet 3 12/22/19 25 026 Active atorvastatin (LIPITOR) 40 mg tablet Take 1 tablet by mouth daily at bedtime. 2 05/16/20 24 025 Discontinued coenzyme Q10 (CO Q-10) 100 mg cap capsule Take 100 mg by mouth once daily. 025 Discontinued triamcinolone acetonide (KENALOG) 0.1 % cream Apply 1 application to affected area two times a day. 025 Discontinued zinc sulfate 220 mg (50 mg zinc) capsule Take 1 capsule by mouth once daily. 09/25/19 025 Discontinued Active Problems Patient Care Coordination No te [...] x3 (OTTO-LAD, SVG-PDA, SVG-OM) on 05/01/12 - [facility] 2021: patent OTTO-LAD and SVG-OM, occluded SVG-PDA [...] ICD shock Patient has been followed by [facility] Dr. Wei for frequent PVCs (burden 27% [...] hospitalized for acute decompensated heart failure at [facility] 09/12/24-09/16/24. During this hospitalization he was diuresed and discharged home. Remote device transmission then revealed that patient had an ICD shock for VT on 09/16/24 at 6:22 am. He was reportedly not on a continuous alarm security or surveillance monitor at the time. He had a total of 21 VT events with rates 214-231 bpm, 20 of which were successfully treated with ATP x1 between 09/14/24-10/10/24. Dr. Wei recommended admission for further management of ventricular tachycardia and recurrent acute decompensated heart failure. HOSPITAL COURSE: The patient presented to the [facility] ED 09/17/24 after being notified of an [...] jasbir: metoprolol succinate 25 mg daily - MARGARETET/ARB/ARNI: none - MRA: spironolactone 12.5 mg daily [...] kidney disease, unspecified CKD stage, unspecified whether shelter insulin use 04/26/2023 Stroke (cerebrum) 09/03/2022 Chronic systolic heart failure 09/03/2022 Carotid stenosis, asymptomatic, bilateral 2021 Syncope 03/18/2019 Sweating 11/17/2012 Overview (11/17/2012): History: Developed cold sweat ~ 1100 at rest during advent on 11/16. There was no nausea, chest pain, jaw pain, shortness of breath, or lightheadedness. This is similar to his symptoms when patient had STEMI in 04/2012. Patient presented to [facility] at 1200. EKG showed q waves in III, aVF; ST depression in I, aVL; ST elevation V3, V4, V5. On arrival to [facility] his EKG showed resolution of ST elevation in V4 and V5. His troponin 0.367 at OSH (? Troponin I); but has been negative at [facility] Main campus. Assessment: Possible atypical manifestations type II demand ischemia in setting of recent dehydration from profuse diarrhea or residual symptoms of recent illness. Cold sweat resolved after arrival. Plan: Trend cardiac enzymes, monitor clinical symptoms, and serial EKG's as needed. If continue to worsen clinically, would proceed to [facility]. Coronary artery disease invo lving coronary bypass graft of cabazon heart without angina pectoris 11/17/2012 Acute on chronic systolic congestive heart failu re 11/17/2012 Overview (11/17/2012): History: Acute systolic heart failure in setting of ND in 04/2012 LVEF 42% by ECHO 06/2012 [...] LVEF 25%, NL RV. IABP placed in lab rep preop. D/c'd 05/02. Postpump TTE: LVEF 25-30%. [...] complaints. Continue. 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 Continue ASA, statin and BB. Resolved Problems Problem Noted Date Diagnosed Date [...] 56, Troponin T .37 on admission to F Wide-complex tachycardia 04/28/2012 Overview (05/03/2012): Presented to OSH 04/28/12 in setting acute ND with wide complex tachycardia SVT versus VT. Given adenosine x2 without effect, diltiazem bolus and infusion with no effect. Spontaneous conversion to NSR. Had short run of wide complex tachycardia upon arrival to [facility] from CICU. Pre-op evaluation 04/28/2012 05/01/2012 Overview (04/28/2012): Preoperative evaluation for CABG. Not ReDo -Carotids: Ordered -Vein Mapping: Ordered -Bedside PFTs: Ordered -Formal TTE: Ordered -CXR: Completed Encounters Date Type Department Care Team Description 03/04/2025 2:[address] [facility] [address] [id number] Tuyet Rodrigues, COMPUTER SYSTEMS TECHNICIAN.SOFTWARE SALES Amaurosis fugax (Primary Dx); Carotid stenosis, asymptomatic, bilateral; Atrial fibrillation, unspecified type (HCC); Mixed hyperlipidemia; Essential hypertension 03/03/2025 1:49 PM EDT Anesthesia Event HOSP EP Lab [address] [place] [address] Aravind Brumfield MD O'Hara, Carleen A, COMPUTER SYSTEMS TECHNICIAN.NORMALIZER 03/03/2025 12:00 PM EDT - 03/03/2025 1:00 PM EDT Surgery HOSP EP Lab [address] [place] [address] Nj Wei MD CARDIOVERSION EXTERNAL ELECTIVE 03/03/2025 9:31 AM EDT - 03/03/2025 3:24 PM EDT Hospital Encounter [id number] [address] [id number] Nj Wei MD Persistent atrial fibrillation (HCC) [I48.19] Discharge Disposition: Home 03/03/2025 Get Medical Advice Cardiology [address] [place] [address] Carmela Kinney MD Urgent 03/03/2025 Travel 03/02/2025 Travel 03/02/2025 Telephone Cardiology [address] [place] [address] Nj Wei MD Schedule Surgery (EPS-DCC) 03/02/2025 Orders Only Pseudo [place]ARD [place] [address] Nj Wei MD 03/01/2025 11:45 AM EDT Office Visit Cardiology [address] [place] [address] Nj Wei MD Atherosclerotic heart disease of cabazon coronary artery with other forms of angina pectoris (Primary Dx); Coronary artery disease involving coronary bypass graft of cabazon heart without angina pectoris; Acute on chronic systolic congestive heart failure (HCC); S/P CABG (coronary artery bypass graft); Cardiomyopathy, ischemic; Frequent PVCs; VT (ventricular tachycardia) ([facility]); ICD (implantable cardioverter-defibrill ator) discharge; 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 kidney disease, unspecified CKD stage, unspecified whether lobsterman insulin use ([facility]); Stage 3b chronic kidney disease (HCC); Paroxysmal atrial fibrillation ([facility]); terminal gauger (current) use of anticoagulants 03/01/2025 10:30 AM EDT - 03/01/2025 11:59 PM EDT Hospital Encounter Cardiology [address] [place] [address] Pacemaker reprogramming/check [Z45.018] Discharge Disposition: Home 03/01/2025 9:45 AM EDT Procedure Cardiology [address] [place] [address] 03/01/2025 Travel 02/25/2025 Patient [facility] HB-3 [address] [place] [address] Tessa Zuniga Formerly [facility] A Smarter Way to Manage Your Heart Failure Medications 02/23/2025 Telephone Cardiology [address] [place] [address] Carmela Kinney MD Outside Labs-[facility] Ordered (Outside labs dated 02/22/25 from Mitzy Rubin, farrah into [employer] for review) 01/26/2025 Telephone Cardiology [address] [place] [address] Carmela Kinney MD 01/21/2025 Get Medical Advice Cardiology [address] [place] [address] Carmela Kinney MD Thyroid labs and medication 12/22/2024 Telephone [facility] [address] [place], [place] [id number] Jesusita Esparza APRN.SOFTWARE SALES Appointment 12/21/2024 1:00 PM EDT [facility] [address] [place] [address] Carmela Kinney MD Chronic systolic (congestive) heart failure (HCC) (Primary Dx); End stage heart failure (HCC) [I50.84] 12/21/2024 Travel 12/15/2024 Results Follow-Up Cardiology [address] [place], [place] [phone] Carmela Kinney MD 12/10/2024 Telephone Cardiology [address] [place] [address] Carmela Kinney MD Follow Up 12/08/2024 1:30 PM EDT Procedure Cardiology [address] [place], [place] [id number] 12/08/2024 Travel 12/03/2024 Telephone Cardiology [address] [place] [address] Nj Wei MD Medication Question from Last 3 Months Immunizations Immunization Administration Dates Next Due diphtheria tetanus pertussis (DTP) vaccine 06/13 Family History Medical History Relation Comments Ischemic Heart Disease Brother CABGx6 fi rst at age 72 No Known Problems Daughter 1 No Known Problems Daughter 2 No Known Problems Daughter 3 Coronary Artery Disease Father Heart Attack Father fatal ND at age 77 No Known Problems Maternal Grandfather No Known Problems Maternal Grandmother CHF Mother Other Mother at age 96 atrial fibrillation Mother Other Other paternal cousin at age 50 of ND No Known Problems Paternal Grandfather No Known Problems Paternal Grandmother Relation Status Comments Brother Alive Daughter 1 Alive Daughter 2 Alive Daughter 3 Alive Father (Age 77) Maternal Grandfather Maternal Grandmother Mother (Age 96) Other Paternal Grandfather Paternal Grandmother Social History Tobacco Use Types Packs/Day Years Used Date Smoking Tobacco: Former Cigarettes 1 10 0 04/28/1972 - 04/28/1982 Pipe Passive Smoke Exposure: Never Smokeless Tobacco: Never Tobacco Cessation:Counseling Given: Not Answered Alcohol Use Standard Drinks/Week Comments Not Currently 0 (1 standard drink = 0.6 oz pur e alcohol) rarely [facility] Utilities Answer Date Recorded In the [...] place to sleep or slept in a halfway (including now)? No 03/02/2024 Housing Stability Vital [...] the past 12 m [facility], were you homeless or living in a halfway (including now)? Yes 07/22/2024 Area Deprivation Index Answer Date Rich rded National Score (1-100), lower number is lower ri sk 52 02/05/2024 State Score (1-10), lower number is lower risk 3 02/05/2024 Data from: https://www.neighborhoodatlas.medicine.[facility]/. Last address used for calculation [address] [place] [address] [address] 02/05/2024 Sex and Gender Information Value Date Recorded Sex Assigned at Male 02/22/2019 10:48 PM EDT Legal Sex Male 8:07 AM EST Gender Identity Male 02/22/2019 10:48 PM EDT Sexual Orientation Straight 02/22/2019 10 :48 PM EDT Last Filed Vital Signs Vital Sign Reading Time Taken Comments Blood Pressure 134/63 03/03/2025 3:00 PM EDT Pulse 57 03/03/2025 3:00 PM EDT Temperature 36.3 C (97.4 F) 03/03/2025 11:01 AM EDT Respiratory Rate 18 03/03/2025 2:07 PM EDT Oxygen Saturation 89% 03/03/2025 3:00 PM EDT Inhaled Oxygen Concentration - - Weight 78.9 kg (174 lb) 03/01/2025 2:20 PM EDT Height 182.9 cm (6') 03/01/2025 2:20 PM EDT Body Mass Index 23.6 03/01/2025 2:20 PM EDT Plan of Treatment Upcoming Encounters Date Type Department Care Team (Late st Contact Info) Description 06/30/2025 10:00 AM EDT Office Visit Cardiology [address] [phone] Carmela Kinney MD [address] [place] [address] DX: Chronic diastolic heart failure Health Maintenance Due Date Last Done Comments Diabetic Foot Exam 02/20/1952 Anxiety Screening 02/20/1960 Depression Screening 02/20/1960 Pneumococcal Vaccine: 50+ (1 of 2 - PCV) 1961 Shingrix Vaccine (1 of 2) 02/20/1992 Medicare Annual Wellness Visit 02/14/2011 RSV Vaccine (1 - 1-dose 75+ series) 2017 Covid-19 Vaccine (1 - 2023-2 5 season) 2024 Advance Directive Discussion 09/16/2024 LDL Cholesterol 02/15/2025 02/16/2024, 09/16, 09/28/2023, Additional history exists Dilated Retinal Exam 03/02/2025 03/02/2024 HbA1C 04/03/2025 10/04/2024, 11/2024, 05/09/2024, Additional history exists Influenza Vaccine (Season Ended) 2025 DTaP,Tdap,Td Vaccine (2 - Tdap) 06/13/2030 0 Colonoscopy Discontinued 05/14/2024, 04/17, 05/09/2024 Colorectal Cancer Screening Discontinued CT Colonography Discontinued Cologuard (FIT-DNA) Discontinued Fecal Occult Blood Discontinued Sigmoidoscopy Discontinued Goals Goal Patient Goal Type Associated Problems Recent Progress Patient-Stated? Author Blood Pressure < 130/80 Blood Pressure 134/63( 025 3:00 PM EDT) Lidia Soto, ARI[employer] Medical Devices Implanted Type Area Canvas Baster Device Identifier Shelf Expiration Date Model / Serial / Lot [id number] Mitraclip Xt Delivery System - [id number] Implanted:Qty: 1 on 02/18/2024 by Isreal Rain MD at [facility] Clip N/A: Heart [employer] [id number] / / Sys Kit 1 Sgc & Up To 3 Clips - [id number] Implanted:Qty: 1 on 02/18/2024 at [facility] Clip [employer] [id number] / / System Vascade 6/7fr Collagen Compression Bioabsorbable Vascular - [id number] Implanted:Qty: 1 on 03/04/2024 at [facility] Collagen Left: Artery - Femoral CARDIVA 11/12/2025 [id number] / / [id number] Icd-D142 [id number] Implanted:2018 (Quantity not on file) ICD [employer] D142 INOGEN / [id number] / [id number] Implanted:2018 (Quantity not on file) Lead [employer] 0675 / [id number] / [id number] Ingevity Mri [id number] Implanted:2018 (Quantity not on file) Lead [employer] 7741 INGEVITY MRI / [id number] / [id number] [place] 4-Front [id number] Implanted:2018 (Quantity not on file) Lead [employer] 0675 RELIANCE 4-FRONT / [id number] / [place] Cv 6x1in Thk1.65mm Ptfe - [id number] Implanted:Qty: 1 on 05/01/2012 at [facility] Patch BARD PERIPHERAL VASCULAR 06/16/2016 [id number] / / [id number] Description:used for plrdget ts. Patch Cv 8x.8cm Tapr Vsgrd Bov - [id number] Implanted:Qty: 1 on 07/01/2012 at [facility] Patch Right: Artery - Carotid [employer] 01/16/2017 [id number] / / [id number] Description:Right Carotid Stent Precise Pro Rx 8mm Nitinol 40mm 135cm Vascular Self Expand Micromesh - [id number] Implanted:Qty: 1 on 03/04/2024 at [facility] Vascular Stents Left: Artery - Carotid CARDINAL CORDIS 12/14/2025 [id number] / / [id number] Procedures Procedure Name Priority Date/Time Associated Diagnosis Comments CARDIAC IMPLANTABLE DEVICE CHECK Routine 03/03/2025 3:42 PM EDT Procedure Note - Gisel Sapp MD - 03/03/2025 3:42 PM EDTThis note is in progress. Normal In-Office: No Events DUAL LEAD ICD EVALUATION * PRESENTS FOR: POST DCC Device check * Presenting EGM: /VS * Underlying Rhythm: SR * Normal Device Function * Battery: 6.5 years remaining until VETO. (Noted that on the 03/01/25device check the battery life stated 9.5 years and the remote on 03/02/2025showed 9 years. Related to DCC today??) * Events or Alerts since: 03/01/2025. No new events since DCC today. * Sensing, impedance and RA thresholds are WNL. RV thresholds tested on03/01/25 were WNL. * Heart Rate Histograms reviewed * Pacing and Detection Parameters were evaluated * RA pacing <1% and RV pacing 2% NOTE TO PROVIDERS: Cardiac Implanted Devices Flowsheets contain detailedProgramming and Evaluation data. Full Docket/PDF found below under Scanned Documents . ECG COMPLETE Routine 03/03/2025 2:22 PM EDT EPS: CARDIOVERSION 03/03/2025 1:56 PM EDT CARDIOVERSION ELECTIVE ARRHYTHMIA EXTERNAL 03/03/2025 1:48 PM EDT Persistent atrial fibrillation (HCC) COMPREHENSIVE METABOLIC PANEL STAT 03/03/2025 11:03 AM EDT ECG COMPLETE 03/03/2025 10:59 AM EDT CARDIAC IMPLANTABLE DEVICE CHECK REMOTE Routine 03/02/2025 4:01 AM EDT US CAROTID ARTERIES [facility] Routine 03/01/2025 12:52 PM EDT CARDIAC IMPLANTABLE DEVICE CHECK Routine 03/01/2025 11:26 AM EDT Pacemaker reprogramming/ch benji ECG COMPLETE Routine 03/01/2025 10:52 AM EDT Cardiomyopathy, ischemic S/P mitral valve clip implantation EXTERNAL LAB 02/24/2025 10:04 AM EDT EXTERNAL LAB 02/23/2025 2:30 PM EDT LVEF TRANSTHORACIC ECHO Routine 12/08/2024 2:49 PM EDT ECHO Routine 12/08/2024 2:49 PM EDT Cardiomyopathy, ischemic S/P mitral valve clip implantation ECG COMPLETE Routine 12/08/2024 1:49 PM EDT HFrEF (heart failure with reduced ejection fraction) ([facility]) Mitral valve insufficiency, unspecified etiology HEMOGLOBIN A1C Routine 09/18/2024 4:51 AM EST COLONOSCOPY (THERAPEUTIC) Routine 05/14/2024 4:09 PM EDT LIPID PANEL, NONFASTING Add-on 02/16/2024 10:30 AM EDT from Last 3 Months or Most Recently Relevant to Health Maintenance Results * EPS: CARDIOVERSION (03/03/2025 1:56 PM EDT) 03/03/2025 1:56 PM EDT [facility] - 03/03/2025 2:09 PM EDT Final Report Cardiac Electrophysiology Laboratory [address] [place] [address] The entire procedure was performed by the [...] months LV function: ECHO: Ejection fraction 0.16 [id number] risk score: 5 Congestive heart failure/LV dysfunction: 1 Hypertension: 1 Age >= 75 years: 2 Diabetes mellitus: 0 Stroke, TIA, or thromboembolism: 0 Vascular disease (prior ND/CAD, PAD or aortic plaque): 1 Age 65-74 years: 0 Sex, female: 0 Duration of arrhythmia: 2 weeks Duration of anticoagulation: > 1 year Patient: [id number] JOSÉ MIGUEL ANTONIO Lab Staff: SHAWN CAZARES MD Lab Fellow: Referring Physician: CARMELA KINNEY MD Shawn Cazares MD SCHEDULED PROCEDURES Final R esult [facility] [address] [place] [address] * (ABNORMAL) COMPREHENSIVE METABOLIC PANEL (03/03/2025 11:03 AM EDT) [facility] Protein, Total 7.2 6.3 - 8.0 g/dL 03/03/2025 11:40 AM EDT [facility] Albumin 3.9 3.9 - 4.9 g/dL 03/03/2025 11:40 AM EDT [facility] Calcium, Total 9.5 8.5 - 10.2 mg/dL 03/03/2025 11:40 AM EDT [facility] Bilirubin, Total 1.8(H) 0.2 - 1.3 mg/dL 03/03/2025 11:40 AM EDT [facility] Alkaline Phosphatase 125(H) 38 - 113 U/L 03/03/2025 11:40 AM EDT [facility] AST 20 14 - 40 U/L 03/03/2025 11:40 AM EDT [facility] ALT 14 10 - 54 U/L 03/03/2025 11:40 AM EDT [facility] Glucose 106(H) 74 - 99 mg/dL 03/03/2025 11:40 AM T [facility] Comment: The [place] Diabetes Association (ADA) provides guidance for cutoff [...] Standards of Medical Care in Diabetes 2016, [place] Diabetes Association. Diabetes Care. 2016.39(Suppl 1). BUN 59(H) 9 - 24 mg/dL 03/03/2025 11:40 AM EDT [facility] Creatinine 2.46(H) 0.73 - 1.22 mg/dL 03/03/2025 11:40 AM EDT [facility] Sodium 138 136 - 144 mmol/L 03/03/2025 11:40 AM EDT [facility] Potassium 5.4(H) 3.7 - 5.1 mmol/L 03/03/2025 11:40 AM EDT [facility] Chloride 101 98 - 107 mmol/L 03/03/2025 11:40 AM EDT [facility] CO2 24 22 - 30 mmol/L 03/03/2025 11:40 AM EDT [facility] Anion Gap 13 8 - 15 mmol/L 03/03/2025 11:40 AM EDT [facility] Estimated Glomerular Filtration Rate 25(L) >=60 mL/min/1. 73m 03/03/2025 11:40 AM EDT [facility] Comment:Estimated Glomerular Filtration Rate (eGFR) [...] us Nj Eriberto [facility] Final Result [facility] [address] [place] [address], * CARDIAC IMPLANTABLE DEVICE CHECK REMOTE (03/02/2025 4:01 AM EDT) Date Time Interrogation Session [id number] MURJ CARDIAC Type Interrogation Session Remote MURJ CARDIAC Implantable Pulse Generator Canvas Baster Tutee MURJ CARDIAC Implantable Pulse Generator Type Defibrillator [facility] [place] [place] CARDIAC Implantable Pulse Generator Model D142 [facility] [place] [place] CARDIAC Implantable Pulse Generator Serial Number [id number] [facility] [place] [place] CARDIAC Implantable Pulse Generator Implant Date [id number] MUR CARDIAC Battery Remaining Percentage 100.00 MURJ CARDIAC Battery Remaining Longevity 108.0 MURJ CARDIAC Battery Status Beginning of Service MUR CARDIAC Capacitor Charge Time 9.500 MURJ CARDIAC Bj Statistic RA Percent Paced 2.00 MURJ CARDIAC Bj Statistic RV Percent Paced 6.00 MURJ CARDIAC Lead Channel Sensing Intrinsic Amplitude 3.800 MURJ CARDIAC Lead Channel Setting Sensing Sensitivity 0.25 MURJ CARDIAC Lead Channel Impedance Value 645 MURJ CARDIAC Lead Channel Setting Pacing Amplitude 2.000 MURJ CARDIAC Lead Channel Setting Pacing Pulse Width 0.5 MURJ CARDIAC Lead Channel Sensing Intrinsic Amplitude 18.300 MURJ CARDIAC Lead Channel Setting Sensing Sensitivity 0.30 MURJ CARDIAC Lead Channel Impedance Value 375 MURJ CARDIAC Lead Channel Setting Pacing Amplitude 2.000 MURJ CARDIAC Lead Channel Setting Pacing Pulse Width 0.5 MURJ CARDIAC Bj Setting Mode (NBG Code) DDDR MURJ CARDIAC Bj Setting Lower Rate Limit 50 MURJ CARDIAC Bj Setting AT Mode Switch Rate 150 MURJ CARDIAC Bj Setting Maximum Tracking Rate 130 MURJ CARDIAC Bj Setting Maximum Sensor Rate 130 MURJ CARDIAC Bj Setting PAV Delay 200 MURJ CARDIAC Bj Setting ABDULLAHI Delay 170 MURJ CARDIAC Therapy Statistic Recent Shocks Delivered 0 MURJ CARDIAC Therapy Statistic Recent Shocks Aborted 0 MURJ CARDIAC Therapy Statistic Recent ATP Delivered 0 MURJ CARDIAC Shock Measured Impedance 40 MURJ CARDIAC Lead Channel Setting Sensing Polarity Bipolar MURJ CARDIAC Lead Channel Setting Sensing Polarity Bipolar MURJ CARDIAC Lead Channel Setting Pacing Polarity Bipolar MURJ CARDIAC Lead Channel Setting Pacing Polarity Bipolar MURJ CARDIAC Lead Channel Pacing Threshold Polarity Bipolar MURJ CARDIAC Lead Channel Pacing Threshold Polarity Bipolar MURJ CARDIAC Zone Setting Type Category VF MURJ CARDIAC Rate 1 240 MURJ CARDIAC Therapies Burst,41J,41J,41J x 6 MURJ CARDIAC Zone Setting Status On MURJ CARDIAC Zone ID 1 MURJ CARDIAC Zone Setting Type Category VT MURJ CARDIAC Rate 1 200 MURJ CARDIAC Therapies 2 x Burst,41J,41J,41J x 4 MURJ CARDIAC Zone Setting Status On MURJ CARDIAC Zone ID 2 MURJ CARDIAC Zone Setting Type Category VT MURJ CARDIAC Rate 1 175 MURJ CARDIAC Therapies 3 x Burst,41J,41J,41J x 3 MURJ CARDIAC Zone Setting Status On MURJ CARDIAC Zone ID 3 [facility] [place] [place] CARDIAC Implantable Lead Canvas Baster [place]e [facility] Im[facility] Lead Model 7741 Ingevity MRI MUR CARDIAC Implantable Lead Location Right Atrium MURJ CARDIAC Implantable Lead Connection Status Connected MURJ CARDIAC Implantable Lead Serial Number [id number] MURJ CARDIAC Implantable Lead Implant Date [id number] [facility] [place] [place] CARDIAC Implantable Lead Canvas Baster [employer] [place] [employer] [facility] CARDIAC Implantable Lead Model 0675 [facility] [place] [place] CARDIAC Implantable Lead Location Right Ventricle [facility] [place] [place] CARDIAC Implantable Lead Connection Status Connected MURKarina CARDIAC Implantable Lead Serial Number [id number] [facility] CARDIAC Implantable Lead Implant Date [id number] [facility] [place] [place] CARDIAC Implantable Lead Polarity Type Unknown [facility] [place] [place] CARDIAC 03/02/2025 4:01 AM EDT Narrative MURJ CARDIAC - 03/02/2025 8:49 PM EDT Tachycardia: AF *AF re-assessment, scheduling for DCC 03/03* * Presenting EGM: AF/VS * Stored EGMs are consistent with or suggestive of Atrial Fibrillation * Total number of events: Ongoing since at least 02/28 *Diagnostics: *AP 2%, LINE WALKER 6%, AT/AF burden N/R* Additional Notes: Dr. Wei notified via page for ongoing AF. Called and spoke with patient daughter Charu who will relay to patient. Discussed scheduling DCC with ARIES Boo who spoke with Alison in EP lab. DCC to be scheduled 03/03 NOTE TO PROVIDERS: Cardiac Implanted Devices Flowsheets contain detailed Programming and Evaluation data. Full Docket/PDF found below under Scanned Documents . Procedure Note Nj Wei MD - 03/02/2025 Tachycardia: AF *AF re-assessment, scheduling for DCC 03/03* * Presenting EGM: AF/VS * Stored EGMs are consistent with or suggestive of Atrial Fibrillation * Total number of events: Ongoing since at least 02/28 *Diagnostics: *AP 2%, LINE WALKER 6%, AT/AF burden N/R* Additional Notes: Dr. Wei notified via page for ongoing AF. Calledand spoke with patient daughter Charu who will relay to patient.Discussed scheduling DCC with ARIES Boo who spoke with Alison in EP lab.DCC to be scheduled 03/03 NOTE TO PROVIDERS: Cardiac Implanted Devices Flowsheets contain detailedProgramming and Evaluation data. Full Docket/PDF found below under Scanned Documents . Nj Wei MD CARDIOLOGY Final Result [facility] * US CAROTID ARTERIES [facility] (03/01/2025 12:52 PM EDT) 03/01/2025 12:5 2 PM EDT [facility] - 03/01/2025 10:37 PM EDT Non-Invasive Vascular Laboratory [facility] J35 Carotid Duplex Bilateral/Complete Date of service/time: 03/01/2025 12:52:36 PM Name: MR. JOSÉ MIGUEL ANTONIO JR. Date of : 1940 Age: 85 years Gender: M Clinical Indication Follow-up study on a patient with known carotid disease. TECHNIQUE -------- A carotid duplex ultrasound examination was performed, including grayscale imaging and color Doppler and spectral Doppler examination of the below mentioned arteries. FINDINGS -------- RIGHT SIDE Common carotid artery: Proximal: PSV: 28 cm/s. EDV: 8 cm/s. Mid: PSV: 38 cm/s. EDV: 13 cm/s. Distal: PSV: 20 cm/s. EDV: 7 cm/s. Mild heterogeneous plaque at distal. Internal carotid artery: Proximal: PSV: 27 cm/s. EDV: 12 cm/s. Mid: PSV: 38 cm/s. EDV: 16 cm/s. Mild heterogeneous plaque from origin to proximal. ICA/CCA Ratio: 1.4 External carotid artery: PSV: 40 cm/s. EDV: 0 cm/s. Moderate heterogeneous plaque at origin. Subclavian artery: PSV: 199 cm/s. EDV: 10 cm/s. Vertebral artery: PSV: 19 cm/s. EDV: 8 cm/s. LEFT SIDE Common carotid artery: Proximal: PSV: 28 cm/s. EDV: 7 cm/s. Internal carotid artery: Distal: PSV: 35 cm/s. EDV: 12 cm/s. Subclavian artery: Proximal: PSV: 51 cm/s. EDV: 10 cm/s. Vertebral artery: PSV: 13 cm/s. EDV: 4 cm/s. IMPRESSION Please note: the new carotid interpretation criteria are used as recommended by [facility]. When compared with the prior study, of 08/24/2022 no significant change is noted on the right side and improvement noted post repair on the left side. Compared to prior study of 08/24/2022, the left internal carotid artery stent was noted and appears patent (previously 80-99% stenosis). RIGHT SIDE Common carotid artery: Plaque visualized without evidence of hemodynamically significant stenosis. Endarterectomy patch at distal : 1.2 cm. Internal carotid artery: <50% stenosis consistent with mild carotid artery disease. External carotid artery: Elevated velocities and plaque noted. Vertebral artery: Patent and antegrade flow noted. Innominate artery: Not visualized. LEFT SIDE Common carotid artery: Stent noted at distal . Stent patent, plaque noted between stent and vessel wall . Internal carotid artery stent: Patent, no hemodynamically significant restenosis. Stent noted from origin to proximal . Stent patent, plaque noted between stent and vessel wall . Vertebral artery: Patent and antegrade flow noted. Abnormal signal suggests more proximal stenosis. Technologist: Lewis Brady RVT Ordering physician: JESUSITA ESPARZA CNP Interpreting physician: Yusuf Bernard MD Final See Link below for Image us [facility] Provider VASCULAR LAB Final Result [facility] [address] [place] [id number] * CARDIAC IMPLANTABLE DEVICE CHECK (03/01/2025 11:26 AM EDT) Pathologist [facility] Date Time Interrogation Session [id number] [facility] CARDIAC Implantable Pulse Generator Canvas Baster Tutee [facility] CARDIAC Implantable Pulse Generator Type Defibrillator [facility] CARDIAC Implantable Pulse Generator Model D142 [facility] CARDI[facility] Implantable Pulse Generator Serial Number [id number] [facility] C[facility] Implantable Pulse Generator Implant Date [id number] [facility] Battery Status MONIKA [facility] CARDI[facility] Bj Statistic RA Percent Paced 1.00 [facility] CARD[facility] Jb Statistic RV Percent Paced 1.00 [facility] C[facility] Atrial Tachy Statistic AT/AF [place] Percent 1.00 [facility] CARD[facility] Lead Channel Sensing [...] 41J [facility] Zone Setting Type Category VT M[facility] CARDIAC Rate 1 200 [facility] CARDI[facility] Therapies 41J, 41J [facility] CARDIAC Zone [facility] 2 [facility] CARD[facility] Zone Setting Type Category VT1 [facility] CARDIAC Rate 1 175 [facility] CARDIAC Therapies 41J, 41J [facility] CARDIAC Zone Setting [facility] ID 3 [facility] [place] [place] CARDIAC Implantable Lead Canvas [employer] [facility] [place] [place] CARDIAC Implantable Lead Model 7741 Ingevity MRI [facility] [place] [place] CARDIAC Implantable Lead Location Right Atrium [facility] [place] [place] CARDIAC Implantable Lead Connection Status Connected [facility] [place] [place] CARDIAC Implantable Lead Serial Number [id number] [facility] [place] [place] CARDIAC Implantable Lead Implant Date [id number] [facility] [place] [place] CARDIAC Implantable Lead Canvas [employer] [facility] [place] [place] CARDIAC Implantable Lead Model 0675 [facility] [place] [place] CARDIAC Implantable Lead Location Right Ventricle [facility] [place] [place] CARDIAC Implantable Lead Connection Status Connected [facility] [place] [place] CARDIAC Implantable Lead Serial Number [id number] [facility] [place] [place] CARDIAC Implantable Lead Implant Date [id number] [facility] [place] [place] CARDIAC 03/01/2025 11:2 6 AM EDT Narrative [facility] CARDIAC - 03/01/2025 10:06 PM EDT In-Office Device Evaluation OPD with Dr. Wei * Device type: [facility] dual lead ICD * Presenting Rhythm: AF/VS-LINE WALKER * Underlying Rhythm: AF with variable ventricular [...] or infection. * Other Diagnostics: *AP 1%, LINE WALKER <1%, AT/AF burden 1% (however likely higher d/t DDIR programming)* Tachycardia: AF * Stored EGMs are consistent with or suggestive of Atrial Fibrillation, intermittent RVR observed on stored episodes * AT/AF [place]: 1% * OAC: Eliquis Appropriate VT Therapy: [...] OPD with Dr. Wei * Device type: [facility] dual lead ICD * Presenting Rhythm: AF/VS-LINE WALKER * Underlying Rhythm: AF with variable ventricular [...] or infection. * Other Diagnostics: *AP 1%, LINE WALKER <1%, AT/AF burden 1% (however likelyhigher d/t DDIR programming)* Tachycardia: AF * Stored EGMs are consistent with or suggestive of Atrial Fibrillation,intermittent RVR observed on stored episodes * AT/AF [place]: 1% * OAC: Eliquis Appropriate VT Therapy: [...] below under Scanned Documents . [facility] Provider CARDIOLOGY F inal Result [facility]ARD[facility] * EXTERNAL LAB (02/24/2025 10:04 AM EDT) Only the most recent of2 resultswithin the time period is included. us External Provider PA-C LABORATORY Final Res ult * ECHO (12/08/2024 2:49 PM EDT) 12/08/2024 2:49 PM EDT [facility] - 12/08/2024 3:37 PM EDT CONCLUSIONS: - Exam indication: Cardiomyopathy - The left ventricle is severely dilated. Left ventricular systolic function is severely decreased. EF = 16 5% (2D biplane) - The right ventricle is dilated. Right ventricular systolic function is moderately to severely decreased. - Percutaneous kavf-ag-rmll repair of the mitral valve with 1 [...] the prior CC echocardiographic exam performed on 09/23/2024 patient is in sinis rythm today compred to V-paced last echo * * * Final * * * [facility] - 12/08/2024 3:37 PM EDT Echocardiography Report: Transthoracic Echo [facility] [id number] Date of service: 12/08/2024 2:49:37 PM ENGINEER Ordering physician: EFREN MENDOZA Indication: Cardiomyopathy Technologist: Terra Dowell Interpreting physician: Cindy Prince MD PATIENT: Name: MR. JOSÉ MIGUEL ANTONIO JR. : 1940 Age: 84 years Gender: M History of coronary artery disease, myocardial infarction, chronic kidney disease, dyslipidemia and hypertension. Previous cardiovascular interventions: CABG (2011) Dual chamber PPM-ICD (03/24/2019) MV clip (02/18/2024) Primary rhythm: sinus. Secondary rhythm: PAC. Height: 182.90 cm BSA: 2.00 m Weight: 79.00 kg BMI: 23.6 kg/m Heart rate 74 bpm Blood pressure 98/64 mmHg Color Doppler was utilized to interrogate the cardiac valves assessed and spectral Doppler was utilized to determine the flow velocities and pressure gradients reported in this exam. MEASUREMENTS: Value Indexed Normal Max aortic dimension 3.7 cm Ao < 3.8 LV ID (diastole) 6.4 cm (2D) 3.21 cm/m LV ID (systole) 6.2 cm (2D) 3.08 cm/m IVS, leaflet tips 0.8 cm (2D) Posterior wall thickness 0.7 cm (2D) Left ventricular mass 191 g (2D) 95 g/m LV stroke volume 45 ml (2D biplane) LV end diastolic volume 281 ml (2D biplane) 140.1 ml/m 34<=EDVi<75 LV end systolic volume 236 ml (2D biplane) 117.8 ml/m Ejection Fraction 16 % (2D biplane) EF > 52 FINDINGS: LEFT VENTRICLE The left ventricle is severely dilated. Left ventricular systolic function is severely decreased. Left ventricular diastolic function was not evaluated due to mitral valve surgery. Wall Motion: The anterior wall, anterolateral wall, entire septum, entire inferior wall, and posterior wall are akinetic. The apical lateral segment, apical anterior segment, and apex are severely hypokinetic. RIGHT VENTRICLE The right ventricle is dilated. Pacer wires are noted in the right ventricle. Right ventricular systolic function is moderately to severely decreased. Estimated right ventricular systolic pressure is 60 mmHg consistent with moderate pulmonary hypertension. Estimated right atrial pressure is 15 mmHg based on IVC assessment. RIGHT ATRIUM Inferior Vena Cava: The inferior vena cava appears dilated measuring 2.7 cm. The vessel decreases less than 50 percent with inspiration. MITRAL VALVE Percutaneous oppm-gw-wbhn repair of the mitral valve with 1 clip. There is mild (1+) mitral valve regurgitation due to thickened and shortened chords. The peak valve gradient is 4 mmHg. The mean valve gradient is 1 mmHg. TRICUSPID VALVE There is moderate (2+) tricuspid valve regurgitation. AORTIC VALVE There is trace (trace - 1+) aortic valve regurgitation. Tricuspid aortic valve. There is mild thickening. PULMONIC VALVE AORTA The visualized aorta is normal in size. Measurements - Sinus: 3.7 cm. INTERATRIAL SEPTUM There is a patent foramen ovale as detected by Doppler. PERICARDIUM There is no pericardial effusion. There is a pleural effusion. Efren Mendoza MD ECHO Final Result [facility] [address] [place] [address] * (ABNORMAL) LVEF TRANSTHORACIC ECHO (12/08/2024 2:49 PM EDT) LV Ejection Fraction 16(A) <52 % [facility] Comment: (2D biplane) EF > 52 An LV Ejection Fraction of > 50% is normal 12/08/2024 2:49 PM EDT us Efren Mendoza MD LVEF RESULTS Final Result [facility] [address] [place] [address] * ECG COMPLETE (12/08/2024 1:49 PM EDT) Ventricular Rate 79 BPM [facility] Atrial Rate 79 BPM [facility] P-R Interval 122 ms [facility] QRS Duration 128 ms [facility] QT Interval 390 ms [facility] QTC Calculation (Bazett) 447 ms [facility] Calculated P [place] 9 degrees [facility] Calculated R [place] -10 degrees [facility] Calculated T [place] 151 degrees [facility] 12/08/2024 1:49 PM EDT Impressions [facility] - 12/24/2024 2:15 PM EDT SINUS RHYTHM WITH OCCASIONAL PREMATURE VENTRICULAR COMPLEXES AND PREMATURE ATRIAL COMPLEXES NONSPECIFIC INTRAVENTRICULAR BLOCK MINIMAL VOLTAGE CRITERIA FOR LVH, MAY BE NORMAL VARIANT ( Appling product ) NONSPECIFIC T WAVE ABNORMALITY ABNORMAL ECG Confirmed by LOLY OLIVER M.D. ([id number]) on 12/24/2024 2:15:48 PM Narrative [facility] - 12/24/2024 2:15 PM EDT NAME : JOSÉ MIGUEL ANTONIO PID : [id number] : 1940 Gender : Male Race : ORD : [id number] Procedure Date : Dec 08 2024 13:49:13 Edit Date : Dec 24 2024 14:15:50 Diagnosis: SINUS RHYTHM WITH OCCASIONAL PREMATURE VENTRICULAR COMPLEXES AND PREMATURE ATRIAL COMPLEXES NONSPECIFIC INTRAVENTRICULAR BLOCK MINIMAL VOLTAGE CRITERIA FOR LVH, MAY BE NORMAL VARIANT ( Robert product ) NONSPECIFIC T WAVE ABNORMALITY ABNORMAL ECG Confirmed by LOLY OLIVER M.D. ([id number]) on 12/24/2024 2:15:48 PM Test Reason : Location : 314 : J14 J14 Overread By : LOLY OLIVER M.D. Edited By : LOLY OLIVER M.D. Referred By : CARMELA KINNEY Acquired by : INO CHERRY us Carmelina S Mayor COMPUTER SYSTEMS TECHNICIAN.SOFTWARE SALES EKG Final Re sult Performing Organization Address [facility]/ZIP Co de Phone Number [facility] [address] [place] [address] * HEMOGLOBIN A1C (09/18/2024 4:51 AM EST) Hemoglobin A1C 5.5 4.3 - 5.6 % 09/18/2024 8:23 AM EST [facility] Comment:[employer] sociation guidelines indicate that patients with HgbA1c in the range 5.7-6.4% are at increased risk for development of diabetes, and intervention by lifestyle modification may be beneficial. HgbA1c greater or equal to 6.5% is considered diagnostic of diabetes. Estimated Average Glucose 111 mg/dL 09/18/2024 8:23 AM EST [facility] Comment:eAG: (Estimated aver age glucose) is a calculated value from HgbA1c and is telephone sales representative of the average blood glucose level in the last 2-3 month period. Blood BLOOD SPECIMEN / Unknown Venipuncture / Unknown 09/18/2024 4:51 AM EST 09/18/2024 6:28 AM EST us Hector Juan MD LABORATORY Final Res ult Performing Organization Address [facility] Co de Phone Number [facility] [address] [phone], [place] * COLONOSCOPY (THERAPEUTIC) (05/14/2024 4:09 PM EDT) Anatomical Region Laterality Modality Other 05/14/2024 4:09 PM EDT Narrative 05/15/2024 2:37 PM EDT Q3 Patient Name: José Miguel Antonio Procedure Date: 05/14/2024 4:09 PM Date of : 1940 Admit Type: Inpatient Age: 84 Gender: Male Note Status: Finalized Attending MD: Vel Carpio MD, [id number] Procedure: Colonoscopy Indications: Hematochezia Providers: Vel Carpio MD, Mariluz Luis MD (Fellow) Patient Profile: This is an 84 year old male. Refer to note in patient chart for documentation of history and physical. Last Colonoscopy: date unknown. Unable to locate last colonoscopy report. Referring Physician: Medicines: Monitored Anesthesia Care Complications: No immediate complications. Requesting Provider: Procedure: Pre-Anesthesia Assessment: - Prior to the procedure, a History and Physical was performed, and patient medications and allergies were reviewed. The patient's tolerance of previous anesthesia was also reviewed. The risks and benefits of the procedure and the sedation options and risks were discussed with the patient. All questions were answered, and informed consent was obtained. Prior Anticoagulants: The patient has taken heparin. ASA Grade Assessment: IV - A patient with severe systemic disease that is a constant threat to life. After reviewing the risks and benefits, the patient was deemed in satisfactory condition to undergo the procedure. After I obtained informed consent, the scope was passed under direct vision. Throughout the procedure, the patient's blood pressure, pulse, and oxygen saturations were monitored continuously. The Colonoscope was introduced through the anus and advanced to the terminal ileum. The colonoscopy was performed without difficulty. The patient tolerated the procedure well. The quality of the bowel preparation was fair. The terminal ileum, ileocecal valve, appendiceal orifice, and rectum were photographed. Moderate Sedation: MAC anesthesia was administered by the anesthesia team. Findings: The perianal and digital rectal examinations were normal. The terminal ileum appeared normal. A single small-mouthed diverticulum was found in the sigmoid colon. Anal papilla(e) were hypertrophied. Non-bleeding internal hemorrhoids were found. The exam was otherwise normal throughout the examined colon. Impression: - Preparation of the colon was fair. - The examined portion of the ileum was normal. - Single small diverticulum in the sigmoid colon. - Anal papilla(e) were hypertrophied. - Non-bleeding internal hemorrhoids. - No obvious source of active or prior bleeding was seen on colonoscopy. - No specimens collected. Estimated Blood Loss: Estimated blood loss: none. Recommendation: - Return patient to [facility] for [facility] care. - Resume previous diet. - Continue present medications. - Repeat colonoscopy is not recommended due to current age (66 years or older) for screening purposes. - Patient has a contact number available for emergencies. The signs and symptoms of potential delayed complications were discussed with the patient. Return to normal activities tomorrow. Written discharge instructions were provided to the patient. Procedure Code(s): --- Professional --- 12540, Colonoscopy, flexible; diagnostic, including collection of specimen(s) by brushing or washing, when performed (separate procedure) CPT copyright 2020 [employer]. All rights reserved. Attending Participation: I was present and participated during the entire procedure, including non-boss portions. Scope In: 4:10:28 PM Scope Out: 4:27:33 PM MD Vel Garg MD 05/15/2024 2:34:02 PM This report has been signed electronically by Vel Carpio MD Number of Addenda: 0 Note Initiated On: 05/14/2024 4:09 PM us [facility] Provider DIGESTIVE DISEASE Final Result * (ABNORMAL) LIPID PANEL, NONFASTING (02/16/2024 10:30 AM EDT) Total Cholesterol, Nonfasting 118 <200 mg/dL 02/16/2024 2:44 PM EDT [facility] Comment: <200 mg/dL, Desirable 200-239 mg/dL, Borderline high >239 mg/dL, High Triglycerides, Nonfasting 74 <150 mg/dL 02/16/2024 2:44 PM EDT [facility] Comment: <150 mg/dL, Normal 150-199 mg/dL, Borderline high 200-499 mg/dL, High >499 mg/dL, Very high HDL Cholesterol, Nonfasting 28(L) >39 mg/dL 02/16/2024 2:44 PM EDT [facility] Comment: 40-59 mg/dL, Acceptable >59 mg/dL, High: Negative risk factor for coronary heart disease <40 mg/dL, Low: Positive risk factor for coronary heart disease LDL Cholesterol Calculated, Nonfasting 75 <100 mg/dL 02/16/2024 2:44 PM EDT [facility] Comment: <100 mg/dL, Optimal 100-129 mg/dL, Near optimal/above optimal 130-159 mg/dL, Borderline high 160-189 mg/dL, High >189 mg/dL, Very high Secondary prevention optimal LDL Cholesterol levels are recommended to be < 70 mg/dL Non HDL Cholesterol, Nonfasting 90 <130 mg/dL 02/16/2024 2:44 PM EDT [facility] Comment: <130 mg/dL, Optimal 130-159 mg/dL, Near optimal/above optimal 160-189 mg/dL, Borderline high 190-219 mg/dL, High >219 mg/dL, Very high Secondary prevention optimal non HDL Cholesterol levels are recommended to be <100 mg/dL VLDL Cholesterol, Nonfasting 15 <30 mg/dL 02/16/2024 2:44 PM EDT [facility] Total Chol/HDL Ratio, Nonfasting 4.21 <5.10 mg/dL 02/16/2024 2:44 PM EDT [facility] LDL/HDL Ratio, Nonfasting 2.68(H) <2.54 mg/dL 02/16/2024 2:44 PM EDT [facility] Comment: Reference: 1. National Cholesterol Education Program ATP III Guideline At-A-Glance Quick Desk Reference: National Heart, Lung, and Blood Leigh. National Institutes of Health. 2001: NIH Publication No. 01-3305. 2. An International Atherosclerosis Society position paper: global recommendations for the management of dyslipidemia: executive summary, Atherosclerosis. 2014: 232(2):410-413. Blood BLOOD SPECIMEN / Unknown Venipuncture / Unknown 02/16/2024 10:30 AM EDT 02/16/2024 10:54 AM EDT us Leonardo Nino MD LABORATORY Final Result [facility] [address] [place] [address], from Last 3 Months or Most Recently Relevant to Health Maintenance Insurance [address] [place] [address] MEDICARE MMO MEDICARE SUPPLEMENT * Guarantor: [facility] [facility] Account Type Relation to Patient Date of Phone Billing Address Corporate Other Advance Directives * Full Code (Latest Code Status on File) Date Activated Date Inactivated Comments 09/18/2024 7:04 AM 09/25/2024 5:02 PM Question Answer Comments Full Code Order Discussed With: Patient * Full Code Date Activated Date Inactivated Comments 07/22/2024 12:41 AM 07/26/2024 6:05 PM Question Answer Comments Full Code Order Discussed With: Patient * Full Code Date Activated Date Inactivated Comments 05/09/2024 4:39 PM 05/16/2024 6:06 PM Question Answer Comments Full Code Order Discussed With: Patient * Full Code Date Activated Date Inactivated Comments 05/06/2024 9:26 PM 05/09/2024 2:11 PM Question Answer Comments Full Code Order Discussed With: Patient * Full Code Date Activated Date Inactivated Comments 03/02/2024 1:14 AM 03/05/2024 5:02 PM Question Answer Comments Full Code Order Discussed With: Patient Care Teams Pathologist Relationship Specialty Start Date End Date Samm Serrano MD PCP - General Family Medicine 05/30/12 Tom Gonzalez [facility] [place] [address] Primary Staff Physician Cardiology 12/02/18 Andreas Pierre MD [address] [place] [address] Primary Staff Physician Cardiology 04/26/23 Virgil Carrillo MD [address] [place] [address] Primary Staff Physician Cardiology 10/29/23 Efren Mendoza MD [address] [phone] Primary Staff Physician Cardiology 12/26/23 Carmela Kinney MD [address] [place] [address] Primary Staff Physician Cardiology 01/10/24
--- OUTSIDE RECORDS SUMMARY | 2025-03-04 15:20 | XMS_ITS | Encounter Summary ---
Author Organization [facility] Address [address] [place] [address] Care Team Providers Care Jukebox Routeman Name Role Phone Samm Serrano MD Primary Care Provider +-4 Tom Gonzalez Unavailable [phone] Andreas Pierre MD Unavailable Virgil Carrillo MD Unavailable Jethro Mendoza MD Unavailable Isaías Kinney MD Unavailable [phone] Source Comments In the event this information is protected by the Federal Confidentiality of Alcohol and Drug AbusePatient Records regulations: The Federal rules restrict any use of the information to criminally investigate or prosecute any alcohol or drug abuse patient.[facility] Encounter Details Date Type Department Care Team (Late st Contact Info) Description 07/22/2024 Patient [facility] HB-[address] [place] [address] Tessa Zuniga RPh At your next appointment, choose [facility]. Social History Tobacco Use Types Packs/Day Years Used Date Smoking Tobacco: Former Cigarettes 1 10 0 04/28/1972 - 04/28/1982 Pipe Passive Smoke Exposure: Never Smokeless Tobacco: Never Alcohol Use Standard Drinks/Week Comments Yes 0 (1 standard drink = 0.6 oz pur e alcohol) rarely [facility] Utilities Answer Date Recorded In the past 12 months has e [employer], gas, oil, or water company threatened to [...] place to sleep or slept in a group home (including now)? No 03/02/2024 Housing Stability [...] living in a group home (including now)? Yes 07/22/2024 Area Deprivation Index Answer Date Rich rded National Score (1-100), lower number is lower ri sk 52 02/05/2024 State Score (1-10), lower number is lower risk 3 02/05/2024 Data from: https://www.neighborhoodatlas.medicine.[facility].edu/. Last address used for calculation [address] 02/05/2024 Sex and Gender [...] 10:00 AM EDT Office Visit Cardiology [address] [place] [address] Isaías Kinney MD [address] [place], [place] [phone] DX: Chronic diastolic heart failure documented as of this encounter Goals Goal Patient Goal Type Associated Problems Recent Progress Patient-Stated? Author Blood Pressure < 130/80 Blood Pressure 134/63( 025 3:00 PM EDT) Lidia Soto, ARIES documented as of this encounter Visit Diagnoses Not on filedocumented in this encounter Care Teams Jukebox Routeman Relationship Specialty Start Date End Date Samm Serrano MD PCP - General Family Medicine 05/30/12 Tom Gonzalez [address] [place] [address] Primary Staff Physician Cardiology 12/02/18 Andreas Pierre MD [address] [place], [place] [phone] Primary Staff Physician Cardiology 04/26/23 Virgil Carrillo MD [address] [place], [place] [phone] Primary Staff Physician Cardiology 10/29/23 Jethro Mendoza MD [address] [place] [address] Primary Staff Physician Cardiology 12/26/23 Isaías Kinney MD [facility] [place] [address] Primary Staff Physician Cardiology 01/10/24 documented as of this encounter
--- OUTSIDE RECORDS SUMMARY | 2025-03-04 15:20 | XMS_ITS | Encounter Summary ---
Author Organization [facility] Address [address] [place] [address] Care Team Providers Care Electro Mechanical Technologist Name Role Phone Samm Serrano MD Primary Care Provider +-4 Tom Gonzalez Unavailable [phone] Andreas Pierre MD Unavailable Virgil Carrillo MD Unavailable Jethro Mendoza MD Unavailable Isaías Kinney MD Unavailable [phone] Source Comments In the event this information is protected by the Federal Confidentiality of Alcohol and Drug AbusePatient Records regulations: The Federal rules restrict any use of the information to criminally investigate or prosecute any alcohol or drug abuse patient.[facility] Encounter Details Date Type Department Care Team (Late st Contact Info) Description 07/10/2024 Get Medical Advice Cardiology [address] [place], [place] [phone] Isaías Kinney MD [address] [place] [address] Medication Question Social History Tobacco Use Types Packs/Day Years Used Date Smoking Tobacco: Former Cigarettes 1 10 0 04/28/1972 - 04/28/1982 Pipe Passive Smoke Exposure: Never Smokeless Tobacco: Never Alcohol Use Standard Drinks/Week Comments Yes 0 (1 standard drink = 0.6 oz pur e alcohol) rarely [facility] Utilities Answer Date Recorded In the past 12 months has th e [employer], gas, oil, or water company threatened to [...] any time in the past 12 m [facility], were you homeless or living in a half-way (including now)? No 05/11/2024 Area Deprivation Index Answer Date Rich rded National Score (1-100), lower number is lower ri sk 52 02/05/2024 State Score (1-10), lower number is lower risk 3 02/05/2024 Data from: https://www.neighborhoodatlas.medicine.[facility].edu/. Last address used for calculation [address] [place] [address] [address] 02/05/2024 Sex and Gender Information [...] 10:00 AM EDT Office Visit Cardiology [address] [place] [address] Isaías Kinney MD [address] [place] [address] DX: Chronic diastolic heart failure documented as of this encounter Goals Goal Patient Goal Type Associated Problems Recent Progress Patient-Stated? Author Blood Pressure < 130/80 Blood Pressure 134/63( 025 3:00 PM EDT) No Lidia Lo RN documented as of this encounter Visit Diagnoses Not on filedocumented in this encounter Care Teams Electro Mechanical Technologist Relationship Specialty Start Date End Date Samm Serrano MD PCP - General Family Medicine 05/30/12 Tom Gonzalez [address] [place] [address] Primary Staff Physician Cardiology 12/02/18 Andreas Pierre MD [facility] [place] [address] Primary Staff Physician Cardiology 04/26/23 iVrgil Carrillo MD [address] [place] [address] Primary Staff Physician Cardiology 10/29/23 Jethro Mendoza MD [address] [place] [address] Primary Staff Physician Cardiology 12/26/23 Isaías Kinney MD [facility] [place] [address] Primary Staff Physician Cardiology 01/10/24 documented as of this encounter
--- OUTSIDE RECORDS SUMMARY | 2025-03-04 15:20 | XMS_ITS | Encounter Summary ---
Author Organization [facility] Address [address] [place] [address] Care Team Providers Care Network Security Consultant Name Role Phone Samm Serrano MD Primary Care Provider +-4 Tom Gonzalez Unavailable [phone] Andreas Pierre MD Unavailable Virgil Carrillo MD Unavailable Jethro Mendoza MD Unavailable Isaías Kinney MD Unavailable [phone] Source Comments In the event this information is protected by the Federal Confidentiality of Alcohol and Drug AbusePatient Records regulations: The Federal rules restrict any use of the information to criminally investigate or prosecute any alcohol or drug abuse patient.[facility] Encounter Details Date Type Department Care Team (Latest Contact Info) Description 06/14/2024 Get Medical Advice Cardiology [address] [place], [place] [phone] Isaías Kinney MD [address] [place] [address] Eliquis prescription Social History Tobacco Use Types Packs/Day Years Used Date Smoking Tobacco: Former Cigarettes 1 10 0 04/28/1972 - 04/28/1982 Pipe Passive Smoke Exposure: Never Smokeless Tobacco: Never Alcohol Use Standard Drinks/Week Comments Yes 0 (1 standard drink = 0.6 oz pur e alcohol) rarely [facility] Utilities Answer Date Recorded In the past [...] any time in the past 12 m [facility], were you homeless or living in a residential (including now)? No 05/11/2024 Area Deprivation Index Answer Date Rich rded National Score (1-100), lower number is lower ri sk 52 02/05/2024 State Score (1-10), lower number is lower risk 3 02/05/2024 Data from: https://www.neighborhoodatlas.medicine.[facility].edu/. Last address used for calculation [address] [place] [address] [address] 02/05/2024 Sex and Gender Information [...] 10:00 AM EDT Office Visit Cardiology [address] [place] [address] Isaías Kinney MD [address] [place] [address] DX: Chronic diastolic heart failure documented as of this encounter Goals Goal Patient Goal Type Associated Problems Recent Progress Patient-Stated? Author Blood Pressure < 130/80 Blood Pressure 134/63( 025 3:00 PM EDT) No Lidia Lo RN documented as of this encounter Visit Diagnoses Not on filedocumented in this encounter Care Teams Network Security Consultant Relationship Specialty Start Date End Date Samm Serrano MD PCP - General Family Medicine 05/30/12 Tom Gonzalez [address] [place] [address] Primary Staff Physician Cardiology 12/02/[address] [facility] [place] [address] Primary Staff Physician Cardiology 04/26/23 Virgil Carrillo MD [address] [place] [address] Primary Staff Physician Cardiology 10/29/23 Jethro Mendoza MD [address] [place] [address] Primary Staff Physician Cardiology 12/26/[address] [facility] [place] [address] Primary Staff Physician Cardiology 01/10/24 documented as of this encounter
--- OUTSIDE RECORDS SUMMARY | 2025-03-04 15:20 | XMS_ITS | Encounter Summary ---
Author Organization [facility] Address [address] [place] [address] Care Team Providers Care Benefits Clerk Name Role Phone Samm Serrano MD Primary Care Provider +-4 Tom Gonzalez Unavailable [phone] Andreas Pierre MD Unavailable Virgil Carrillo MD Unavailable Jethro Mendoza MD Unavailable Isaías Kinney MD Unavailable [phone] Source Comments In the event this information is protected by the Federal Confidentiality of Alcohol and Drug AbusePatient Records regulations: The Federal rules restrict any use of the information to criminally investigate or prosecute any alcohol or drug abuse patient.[facility] Encounter Details Date Type Department Care Team (Late st Contact Info) Description 07/13/2024 Get Medical Advice Cardiology [address] [place], [place] [phone] Isaías Kinney MD [address] [place] [address] Water retention Social History Tobacco Use Types Packs/Day Years Used Date Smoking Tobacco: Former Cigarettes 1 10 0 04/28/1972 - 04/28/1982 Pipe Passive Smoke Exposure: Never Smokeless Tobacco: Never Alcohol Use Standard Drinks/Week Comments Yes 0 (1 standard drink = 0.6 oz pur e alcohol) rarely [facility] Utilities Answer Date Recorded In the [...] place to sleep or slept in a [place] health [place] facility (including now)? No 03/02/2024 Housing Stability Vital Sign Answer Akbar e Recorded In the last 12 months, was t here a time when you were not able to pay the mortgage or rent on time? No 05/11/2024 In the past 12 months, how m any times have you moved where you were living? 1 05/11/2024 At any time in the past [address] [facility], were you homeless or living in a [place] health [place] facility (including now)? No 05/11/2024 Area Deprivation Index Answer Date Rich rded National Score (1-100), lower number is lower ri sk 52 02/05/2024 State Score (1-10), lower number is lower risk 3 02/05/2024 Data from: https://www.neighborhoodatlas.medicine.[facility].edu/. Last address used for calculation [address] [place] [address] [address] 02/05/2024 Sex and Gender Information [...] 10:00 AM EDT Office Visit Cardiology [address] [place] [address] Isaías Kinney MD [address] [place] [address] DX: Chronic diastolic heart failure documented as of this encounter Goals Goal Patient Goal Type Associated Problems Recent Progress Patient-Stated? Author Blood Pressure < 130/80 Blood Pressure 134/63( 025 3:00 PM EDT) No Lidia Lo RN documented as of this encounter Visit Diagnoses Not on filedocumented in this encounter Care Teams Benefits Clerk Relationship Specialty Start Date End Date Samm Serrano MD PCP - General Family Medicine 05/30/12 Tom Gonzalez [address] [place] [address] Primary Staff Physician Cardiology 12/02/18 Andreas Pierre MD [facility] [place] [address] Primary Staff Physician Cardiology 04/26/23 Virgil Carrillo MD [address] [place] [address] Primary Staff Physician Cardiology 10/29/23 Jethro Mendoza MD [address] [place] [address] Primary Staff Physician Cardiology 12/26/23 Isaías Kinney MD [facility] [place] [address] Primary Staff Physician Cardiology 01/10/24 documented as of this encounter
--- OUTSIDE RECORDS SUMMARY | 2025-03-04 15:20 | XMS_ITS | Encounter Summary ---
Author Organization [facility] Address [id number] [address] [place] [address] Care Team Providers Care Swimming Pool Salesperson Name Role Phone Samm Serrano MD Primary Care Provider +-[phone] Encounter Details Date Type Department Care Team (Late st Contact Info) Description 07/14/2021 Orders Only [facility] [address] [place] [phone] Arelis Callejas Prostate cancer ([facility] Social History Tobacco Use Types Packs/Day Years Used Date Smoking Tobacco: Former Smokeless Tobacco: Never Alcohol Use Standard Drinks/Week Comments Yes 0 (1 standard drink = 0.6 oz pur e alcohol) Childcare Answer Date Recorded Childcare Unknown 02/24/2019 Employment Answer Date Recorded Employment Unknown 02/24/2019 Purpose - Life Answer Date Recorded Purpose and direction in life Unknown Sex and Gender Information Value Date Recorded Sex Assigned at Not on file Legal Sex Male 8:42 PM EDT Gender Identity Not on file Sexual Orientation Not on file COVID-19 Exposure Response Date Recorded In the last month, have you been in contact with someone who was confirmed or suspected to have Coronavirus / COVID-19? No / Unsure 07/17/2021 3:56 PM EDT documented as of this encounter Plan of Treatment Not on file documented as of this encounter Procedures Procedure Name Priority Date/Time Associated Diagnosis Comments PROSTATIC SPECIFIC ANTIGEN, DIAGNOSTIC Routine 06/23/2021 Prostate cancer (CMS-HCC) documented in this encounter Results * Prostatic specific antigen, diagnostic (06/23/2021) Psa 30.08 SUNQUEST 06/23/2021 us Isaías Streeter MD LAB BLOOD ORDERABLES Final R esult SUNQUEST documented in this encounter Visit Diagnoses Diagnosis Prostate cancer (CMS-HCC) Malignant neoplasm of prostate documented in this encounter Care Teams Swimming Pool Salesperson Relationship Specialty Start Date End Date Samm Serrano MD PCP - General Family Medicine 02/26/24 documented as of this encounter
--- OUTSIDE RECORDS SUMMARY | 2025-03-04 15:20 | XMS_ITS | Encounter Summary ---
Author Organization [facility] Address [address] [place] [address] Care Team Providers Care Passenger Coach Driver Name Role Phone Samm Serrano MD Primary Care Provider +-4 Tom Gonzalez Unavailable [phone] Andreas Pierre MD Unavailable Virgil Carrillo MD Unavailable Jethro Mendoza MD Unavailable Isaías Kinney MD Unavailable [phone] Source Comments In the event this information is protected by the Federal Confidentiality of Alcohol and Drug AbusePatient Records regulations: The Federal rules restrict any use of the information to criminally investigate or prosecute any alcohol or drug abuse patient.[facility] Encounter Details Date Type Department Care Team (Late st Contact Info) Description 06/01/2024 Get Medical Advice Cardiology [address] [place], [place] [phone] Isaías Kinney MD [address] [place] [address] lab results from outside lab Social History Tobacco Use Types Packs/Day Years Used Date Smoking Tobacco: Former Cigarettes 1 10 0 04/28/1972 - 04/28/1982 Pipe Passive Smoke Exposure: Never Smokeless Tobacco: Never Alcohol Use Standard Drinks/Week Comments Yes 0 (1 standard drink = 0.6 oz pur e alcohol) rarely [facility] Utilities Answer Date Recorded In the past 12 months has th e electric, gas, oil, or water [employer] threatened to shut off services in your [...] place to sleep or slept in a fpc (including now)? No 03/02/2024 Housing Stability Vital Sign Answer Akbar e Recorded In the last 12 months, was t here a time when you were not able to pay the mortgage or rent on time? No 05/11/2024 In the past 12 months, how m any times have you moved where you were living? 1 05/11/2024 At any time in the past 12 m [facility], were you homeless or living in a fpc (including now)? No 05/11/2024 Area Deprivation Index Answer Date Rich rded National Score (1-100), lower number is lower ri sk 52 02/05/2024 State Score (1-10), lower number is lower risk 3 02/05/2024 Data from: https://www.neighborhoodatlas.[facility].edu/. Last address used for calculation [address] [place] [address] [address] 02/05/2024 Sex and Gender Information [...] 10:00 AM EDT Office Visit Cardiology [address] [place] [address] Isaías Kinney MD [address] [place] [address] DX: Chronic diastolic heart failure documented as of this encounter Goals Goal Patient Goal Type Associated Problems Recent Progress Patient-Stated? Author Blood Pressure < 130/80 Blood Pressure 134/63( 025 3:00 PM EDT) No Lidia Lo, ARIES documented as of this encounter Visit Diagnoses Not on filedocumented in this encounter Care Teams Passenger Coach Driver Relationship Specialty Start Date End Date Samm Serrano MD PCP - General Family Medicine 05/30/12 oTm Gonzalez [address] [place] [address] Primary Staff Physician Cardiology 12/02/18 Andreas Pierre MD [facility] [place] [address] Primary Staff Physician Cardiology 04/26/23 Virgil Carrillo MD [address] [place] [address] Primary Staff Physician Cardiology 10/29/23 Jethro Mendoza MD [address] [place] [address] Primary Staff Physician Cardiology 12/26/23 Isaías Kinney MD [facility] [place] [address] Primary Staff Physician Cardiology 01/10/24 documented as of this encounter
--- OUTSIDE RECORDS SUMMARY | 2025-03-04 15:21 | XMS_ITS | Encounter Summary ---
Author Organization [facility] Address [address] [place] [address] Care Team Providers Care Lan Support Specialist Name Role Phone Samm Serrano MD Primary Care Provider +-4 Tom Gonzalez Unavailable [phone] Andreas Pierre MD Unavailable Virgil Carrillo MD Unavailable Jethro Mendoza MD Unavailable Isaías Kinney MD Unavailable [phone] Source Comments In the event this information is protected by the Federal Confidentiality of Alcohol and Drug AbusePatient Records regulations: The Federal rules restrict any use of the information to criminally investigate or prosecute any alcohol or drug abuse patient.[facility] Encounter Details Date Type Department Care Team (Latest Contact Info) Description 03/03/2025 Travel Social History Tobacco Use Types Packs/Day Years Used Date Smoking Tobacco: Former Cigarettes 1 10 0 04/28/1972 - 04/28/1982 Pipe Passive Smoke Exposure: Never Smokeless Tobacco: Never Alcohol Use Standard Drinks/Week Comments Not Currently 0 (1 standard drink = 0.6 oz pur e alcohol) rarely [facility] Utilities Answer Date Recorded In the [...] place to sleep or slept in a correction (including now)? No 03/02/2024 Housing Stability Vital [...] time in the past 12 m [facility], were you homeless or living in a correction (including now)? Yes 07/22/2024 Area Deprivation Index Answer Date Rich rded National Score (1-100), lower number is lower ri sk 52 02/05/2024 State Score (1-10), lower number is lower risk 3 02/05/2024 Data from: https://www.neighborhoodatlas.medicine.[facility]/. Last address used for calculation [address] [place] [address] [address] 02/05/2024 Sex and Gender Information [...] No 03/03/2025 3:03 PM EDT Akosua Ramírez, ARIES * Because of a physical, mental, or [...] Akosua Ramírez RN documented in this encounter Plan of Treatment Upcoming Encounters Date Type Department Care Team (Late st Contact Info) Description 06/30/2025 10:00 AM EDT Office Visit Cardiology [address] [place] [address] Isaías Kinney MD [address] [place], [place] [phone] DX: Chronic diastolic heart failure documented as of this encounter Goals Goal Patient Goal Type Associated Problems Recent Progress Patient-Stated? Author Blood Pressure < 130/80 Blood Pressure 134/63( 025 3:00 PM EDT) No Lidia Lo RN documented as of this encounter Visit Diagnoses Not on filedocumented in this encounter Care Teams Lan Support Specialist Relationship Specialty Start Date End Date Samm Serrano MD PCP - General Family Medicine 05/30/12 Tom Gonzalez [facility] [place] [address] Primary Staff Physician Cardiology 12/02/18 Andreas Pierre MD [address] [place], [place] [phone] Primary Staff Physician Cardiology 04/26/23 Virgil Carrillo MD [address] [place] [address] Primary Staff Physician Cardiology 10/29/23 [place] [address] [place] [address] Primary Staff Physician Cardiology 12/26/23 Isaías Kinney MD [address] [place] [address] Primary Staff Physician Cardiology 01/10/24 documented as of this encounter
--- OUTSIDE RECORDS SUMMARY | 2025-03-04 15:21 | XMS_ITS | Encounter Summary ---
Author Organization [facility] Address [address] [place] [address] Care Team Providers Care Vascular Specialists Name Role Phone Samm Serrano MD Primary Care Provider +-4 Tom Gonzalez Unavailable [phone] Andreas Pierre MD Unavailable Virgil Carrillo MD Unavailable Jethro Menodza MD Unavailable Isaías Kinney MD Unavailable [phone] Source Comments In the event this information is protected by the Federal Confidentiality of Alcohol and Drug AbusePatient Records regulations: The Federal rules restrict any use of the information to criminally investigate or prosecute any alcohol or drug abuse patient.[facility] Reason for Visit * Reason Comments Follow Up Encounter Details Date Type Department Care Team (Late Contact Info) Description 08/17/2024 Telephone Cardiology [address] [place] [address] Isaías Kinney MD [address] [place] [address] Follow Up Social History Tobacco Use Types Packs/Day Years Used Date Smoking Tobacco: Former Cigarettes 1 10 0 04/28/1972 - 04/28/1982 Pipe Passive Smoke Exposure: Never Smokeless Tobacco: Never Alcohol Use Standard Drinks/Week Comments Yes 0 (1 standard drink = 0.6 oz pur e alcohol) rarely [facility] Utilities Answer Date Recorded In the [...] place to sleep or slept in a fci (including now)? No 03/02/2024 Housing Stability Vital Sign Answer Akbar e Recorded In the last 12 months, was t here a time when you were not able to pay the mortgage or rent on time? Yes 07/22/2024 In the past 12 months, how m any times have you moved where you were living? 0 07/22/2024 At any time in the past 12 m [facility], were you homeless or living in a fci (including now)? Yes 07/22/2024 Area Deprivation Index Answer Date Rich rded National Score (1-100), lower number is lower ri sk 52 02/05/2024 State Score (1-10), lower number is lower risk 3 02/05/2024 Data from: https://www.neighborhoodatlas.medicine.[facility].edu/. Last address used for calculation [address] [place] [address] [address] 02/05/2024 Sex and Gender Information [...] Author No 05/16/2024 2:47 PM EDT Campos iMna RN * Do you have difficulty dressing [...] Campos Mina RN documented in this encounter Miscellaneous Notes * Telephone Encounter - Shawanda Gomes RN - 08/17/2024 4:16 PM EST Images from the original note were not included. Isaías Kinney MD You1 hour ago (3:07 PM) MM Will add on at 1:15 p on 08/19/24 have emailed f14 thanks -Andreas Called and spoke to Charu- gave her the above information. She verbalized understanding. Shawanda Gomes RN August 17, 2024 4:18 PM * Telephone Encounter - Shawanda Gomes RN - 08/17/2024 2:41 PM EST Called and talked to the daughter of the patient He does appear to be gaining fluid. Has some swelling on and off his legs and his abd. Pt does not have any sob. He declines any dizziness or chest pain. He is taking torsemide 40 mg bid. Blood pressure is stable- 117/65 HR is 65 (on Saturday) She is wondering if he is able to take an extra torsemide if he notices the swelling. She also states that she is having issues with transportation for his apt on 09/07/24. She is wondering if there is anyway for him to be seen on Saturday when he is here for EP. Did let her know that he is on service so likely will not but would ask him She is also asking that he write a new order for cardiac rehab and have the order sent to [facility]. Shawanda Gomes RN August 17, 2024 2:46 PM * Telephone Encounter - Lindsay Ross - 08/17/2024 1:44 PM EST Patients daughter Charu called and wants you to know he is retaining water in his abs again. Has not gained weight and is doing the no eating again. Please call her at [phone]. Thank you, Lindsay documented in this encounter Plan of Treatment Upcoming Encounters Date Type Department Care Team (Late st Contact Info) Description 06/30/2025 10:00 AM EDT Office Visit Cardiology [address] [place] [address] Isaías Kinney MD [address] [place] [id number] DX: Chronic diastolic heart failure documented as of this encounter Goals Goal Patient Goal Type Associated Problems Recent Progress Patient-Stated? Author Blood Pressure < 130/80 Blood Pressure 134/63( 025 3:00 PM EDT) Lidia Soto RN documented as of this encounter Visit Diagnoses Not on filedocumented in this encounter Care Teams Vascular Specialists Relationship Specialty Start Date End Date Samm Serrnao MD PCP - General Family Medicine 05/30/12 Tom Gonzalez [address] [place] [address] Primary Staff Physician Cardiology 12/02/18 Andreas Pierre MD [facility] [place] [id number] Primary Staff Physician Cardiology 04/26/23 Virgil Carrillo MD [address] [place] [address] Primary Staff Physician Cardiology 10/29/23 Jethro Mendoza MD [address] [place] [address] Primary Staff Physician Cardiology 12/26/23 Isaías Kinney MD [facility]0 [facility] [place] [address] Primary Staff Physician Cardiology 01/10/24 documented as of this encounter
--- OUTSIDE RECORDS SUMMARY | 2025-03-04 15:21 | XMS_ITS | Encounter Summary ---
Author Organization [facility] Address [address] [place] [address] Care Team Providers Care Reservations Manager Name Role Phone Samm Serrano MD Primary Care Provider +-4 Tom Gonzalez Unavailable [phone] Andreas Pierre MD Unavailable Virgil Carrillo MD Unavailable Jethro Mendoza MD Unavailable Isaías Kinney MD Unavailable [phone] Source Comments In the event this information is protected by the Federal Confidentiality of Alcohol and Drug AbusePatient Records regulations: The Federal rules restrict any use of the information to criminally investigate or prosecute any alcohol or drug abuse patient.[facility] Encounter Details Date Type Department Care Team (Late st Contact Info) Description 08/14/2024 Patient Msg Cardiology [address] [place], [place] [id number] Isaías Kinney MD [address] [place] [address] Social History Tobacco Use Types Packs/Day Years Used Date Smoking Tobacco: Former Cigarettes 1 10 0 04/28/1972 - 04/28/1982 Pipe Passive Smoke Exposure: Never Smokeless Tobacco: Never Alcohol Use Standard Drinks/Week Comments Yes 0 (1 standard drink = 0.6 oz pur e alcohol) rarely [facility] Utilities Answer Date Recorded In the past 12 months has th e [employer], gas, oil, or water [employer] threatened to shut off services in your [...] place to sleep or slept in a snf (including now)? No 03/02/2024 Housing Stability Vital [...] time in the past 12 m [facility], were you homeless or living in a snf (including now)? Yes 07/22/2024 Area Deprivation Index Answer Date Rich rded National Score (1-100), lower number is lower ri sk 52 02/05/2024 State Score (1-10), lower number is lower risk 3 02/05/2024 Data from: https://www.neighborhoodatlas.medicine.[facility].edu/. Last address used for calculation [address] 02/05/2024 Sex and Gender [...] encounter Miscellaneous Notes * Telephone Encounter - Isaías Kinney MD - 08/14/2024 5:00 PM EST Discussed eliquis dose with Mr. Antonio and RN Maile Lo present. Advised him to continue eliquis full dose given LV thrombus and stop his ASA for now. These recommendations were shared via telephone to Mr. Antonio on 08/14/25 documented in this encounter Plan of Treatment Upcoming Encounters Date Type Department Care Team (Late st Contact Info) Description 06/30/2025 10:00 AM EDT Office Visit Cardiology [address] [place], [place] [phone] Isaías Kinney MD [address] [place] [address] DX: Chronic diastolic heart failure documented as of this encounter Goals Goal Patient Goal Type Associated Problems Recent Progress Patient-Stated? Author Blood Pressure < 130/80 Blood Pressure 134/63( 025 3:00 PM EDT) No Lidia Lo RN documented as of this encounter Visit Diagnoses Not on filedocumented in this encounter Care Teams Reservations Manager Relationship Specialty Start Date End Date Samm Serrano MD PCP - General Family Medicine 05/30/12 Tom Gonzalez [address] [facility] [place] [address] Primary Staff Physician Cardiology 12/02/18 Andreas Pierre MD [address] [place] [address] Primary Staff Physician Cardiology 04/26/23 Virgil Carrillo MD [address] [place] [address] Primary Staff Physician Cardiology 10/29/23 Jethro Mendoza MD [address] [place] [address] Primary Staff Physician Cardiology 12/26/23 Isaías Kinney MD [address] [place] [address] Primary Staff Physician Cardiology 01/10/24 documented as of this encounter
--- OUTSIDE RECORDS SUMMARY | 2025-03-04 15:21 | XMS_ITS | Encounter Summary ---
Author Organization [facility] Address [address] [place] [address] Care Team Providers Care Manager Truck Name Role Phone Samm Serrano MD Primary Care Provider +-4 Tom Gonzalez Unavailable [phone] Andreas Pierre MD Unavailable Virgil Carrillo MD Unavailable Jethro Mendoza MD Unavailable Isaías Kinney MD Unavailable [phone] Source Comments In the event this information is protected by the Federal Confidentiality of Alcohol and Drug AbusePatient Records regulations: The Federal rules restrict any use of the information to criminally investigate or prosecute any alcohol or drug abuse patient.[facility] Encounter Details Date Type Department Care Team (Late st Contact Info) Description 08/03/2024 Get Medical Advice Cardiology [address] [place], [place] [phone] Isaías Kinney MD [address] [place] [address] Hospital Stay Follow Up Social History Tobacco Use Types Packs/Day Years Used Date Smoking Tobacco: Former Cigarettes 1 10 0 04/28/1972 - 04/28/1982 Pipe Passive Smoke Exposure: Never Smokeless Tobacco: Never Alcohol Use Standard Drinks/Week Comments Yes 0 (1 standard drink = 0.6 oz pur e alcohol) rarely [facility] Utilities Answer Date Recorded In the [...] place to sleep or slept in a chcf (including now)? No 03/02/2024 Housing Stability Vital Sign Answer Akbar e Recorded In the last 12 months, was t here a time when you were not able to pay the mortgage or rent on time? Yes 07/22/2024 In the past 12 months, how m any times have you moved where you were living? 0 07/22/2024 At any time in the past 12 m [facility], were you homeless or living in a chcf (including now)? Yes 07/22/2024 Area Deprivation Index Answer Date Rich rded National Score (1-100), lower number is lower ri sk 52 02/05/2024 State Score (1-10), lower number is lower risk 3 02/05/2024 Data from: https://www.neighborhoodatlas.medicine.[facility].edu/. Last address used for calculation [address] [place] [address] [address] 02/05/2024 Sex and Gender Information [...] 10:00 AM EDT Office Visit Cardiology [address] [place] [address] Isaías Kinney MD [address] [place] [address] DX: Chronic diastolic heart failure documented as of this encounter Goals Goal Patient Goal Type Associated Problems Recent Progress Patient-Stated? Author Blood Pressure < 130/80 Blood Pressure 134/63( 025 3:00 PM EDT) No Lidia Lo RN documented as of this encounter Visit Diagnoses Not on filedocumented in this encounter Care Teams Manager Truck Relationship Specialty Start Date End Date Samm Serrano MD PCP - General Family Medicine 05/30/12 Tom Gonzalez [address] [place] [address] Primary Staff Physician Cardiology 12/02/18 Andreas Pierre MD [facility] [place] [address] Primary Staff Physician Cardiology 04/26/23 Virgil Carrillo MD [address] [place] [address] Primary Staff Physician Cardiology 10/29/23 Jethro Mendoza MD [address] [place] [address] Primary Staff Physician Cardiology 12/26/23 Isaías Kinney MD [facility] [place] [address] Primary Staff Physician Cardiology 01/10/24 documented as of this encounter
--- OUTSIDE RECORDS SUMMARY | 2025-03-04 15:21 | XMS_ITS | Encounter Summary ---
Author Organization [facility] Address [address] [place] [address] Care Team Providers Care Wood Drilling Machine Operator Name Role Phone Samm Serrano MD Primary Care Provider +-4 Tom Gonzalez Unavailable [phone] Andreas Pierre MD Unavailable Virgil Carrillo MD Unavailable Jethro Mendoza MD Unavailable Isaías Kinney MD Unavailable [phone] Source Comments In the event this information is protected by the Federal Confidentiality of Alcohol and Drug AbusePatient Records regulations: The Federal rules restrict any use of the information to criminally investigate or prosecute any alcohol or drug abuse patient.[facility] Encounter Details Date Type Department Care Team (Late st Contact Info) Description 02/11/2024 Patient Msg Cardiology [address] [place] [address] Isaías Kinney MD [address] [place] [address] Appointment Cancellation Request Social History Tobacco Use [...] is lower risk 3 02/05/2024 Data from: https://www.neighborhoodatlas.medicine.[facility].edu/. Last address used for calculation [address] 02/05/2024 Sex and Gender Information [...] Author No 03/25/2019 11:00 AM DOTTIET Jia Rios (Radha)ARIES * Do you have serious difficulty [...] 03/25/2019 11:00 AM EDT Jia Rios)ARIES documented in this encounter Plan of Treatment Upcoming Encounters Date Type Department Care Team (Late st Contact Info) Description 06/30/2025 10:00 AM EDT Office Visit Cardiology [address] [place] [address] Isaías Kinney MD [address] [place] [address] DX: Chronic diastolic heart failure documented as of this encounter Goals Goal Patient Goal Type Associated Problems Recent Progress Patient-Stated? Author Blood Pressure < 130/80 Blood Pressure 134/63( 025 3:00 PM EDT) Lidia Soto RN documented as of this encounter Visit Diagnoses Not on filedocumented in this encounter Care Teams Wood Drilling Machine Operator Relationship Specialty Start Date End Date Samm Serrano MD PCP - General Family Medicine 05/30/12 Tom Gonzalez [address] [place] [address] Primary Staff Physician Cardiology 12/02/18 Andreas Pierre MD [address] [place] [address] Primary Staff Physician Cardiology 04/26/23 Virgil Carrillo MD [address] [place] [address] Primary Staff Physician Cardiology 10/29/23 Jethro Mendoza MD [address] [place] [address] Primary Staff Physician Cardiology 12/26/23 Isaías Kinney MD [address] [place] [address] Primary Staff Physician Cardiology 01/10/24 documented as of this encounter
--- OUTSIDE RECORDS SUMMARY | 2025-03-04 15:21 | XMS_ITS | Encounter Summary ---
Author Organization [facility] Address [address] [place] [address] Care Team Providers Care Ladies Underwear Operator Name Role Phone Samm Serrano MD Primary Care Provider +-4 Tom Gonzalez Unavailable [phone] Andreas Pierre MD Unavailable Virgil Carrillo MD Unavailable Jethro Mendoza MD Unavailable Isaías Kinney MD Unavailable [phone] Source Comments In the event this information is protected by the Federal Confidentiality of Alcohol and Drug AbusePatient Records regulations: The Federal rules restrict any use of the information to criminally investigate or prosecute any alcohol or drug abuse patient.[facility] Encounter Details Date Type Department Care Team (Late st Contact Info) Description 08/14/2024 Patient Msg Cardiology [address] [place], [place] [phone] Isaías Kinney MD [address] [place] [address] Eliquis Social History Tobacco Use Types Packs/Day Years Used Date Smoking Tobacco: Former Cigarettes 1 10 0 04/28/1972 - 04/28/1982 Pipe Passive Smoke Exposure: Never Smokeless Tobacco: Never Alcohol Use Standard Drinks/Week Comments Yes 0 (1 standard drink = 0.6 oz pur e alcohol) rarely [facility] Utilities Answer Date Recorded In the past [...] any time in the past 12 m [facility], were you homeless or living in a [place] [facility] (including now)? Yes 07/22/2024 Area Deprivation Index Answer Date Rich rded National Score (1-100), lower number is lower ri sk 52 02/05/2024 State Score (1-10), lower number is lower risk 3 02/05/2024 Data from: https://www.neighborhoodatlas.medicine.[facility].edu/. Last address used for calculation [address] [place] [address] [address] 02/05/2024 Sex and Gender Information [...] 10:00 AM EDT Office Visit Cardiology [address] [place] [address] Isaías Kinney MD [address] [place] [address] DX: Chronic diastolic heart failure documented as of this encounter Goals Goal Patient Goal Type Associated Problems Recent Progress Patient-Stated? Author Blood Pressure < 130/80 Blood Pressure 134/63( 025 3:00 PM EDT) No Lidia Lo RN documented as of this encounter Visit Diagnoses Not on filedocumented in this encounter Care Teams Ladies Underwear Operator Relationship Specialty Start Date End Date Samm Serrano MD PCP - General Family Medicine 05/30/12 Tom Gonzalez [address] [place] [address] Primary Staff Physician Cardiology 12/02/18 Andreas Pierre MD [facility] [place] [address] Primary Staff Physician Cardiology 04/26/23 Virgil Carrillo MD [address] [place] [address] Primary Staff Physician Cardiology 10/29/23 Jethro Mendoza MD [address] [place] [address] Primary Staff Physician Cardiology 12/26/23 Isaías Kinney MD [facility] [place] [address] Primary Staff Physician Cardiology 01/10/24 documented as of this encounter
--- OUTSIDE RECORDS SUMMARY | 2025-03-04 15:22 | XMS_ITS | Encounter Summary ---
Author Organization [facility] Metropia s tem Address [id number] [address] [place] [address] Care Team Providers Care Clinical Manager Home Care Name Role Phone Samm Serrano MD Primary Care Provider [phone] Encounter Details Date Type Department Care Team (Late st Contact Info) Description 01/25/2025 Lab Requisition [facility] - Lab [address] [place] [id number] Samm Serrano MD [address] [place] [address] 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 disease, or unspecified chronic kidney disease (CMS-HCC); Chronic systolic (congestive) heart failure ([facility]-HCC) Social History Tobacco Use Types Packs/Day Years Used Date Smoking Tobacco: Former Smokeless Tobacco: Never Alcohol Use Standard Drinks/Week Comments Yes 0 (1 standard drink = 0.6 oz pur e alcohol) 1 beer/month Social Connection and Isolat ion Panel [NHANES] Answer Date Recorded In a typical week, how many times do you talk on the phone with family, friends, or neighbors? More than three times a week 08/17/2021 How often do you get togethe r with friends or relatives? More than three times a week 08/17/2021 How often do you attend [facility] or druze services? Never 08/17/2021 Do you belong to any clubs o r organizations such as mosque groups, unions, fraternal or athletic groups, or school groups? No 08/17/2021 How often do you attend meet ings of the clubs or organizations you belong to? Never 08/17/2021 Are you , , di vorced, , never , or living with a partner? 08/17/2021 AUDIT-C Answer Date Recorded Q1: How often do you have a drink containing alc ohol? Monthly or less 08/17/2021 Q2: How many drinks containi ng alcohol do you have on a typical day when you are drinking? 1 or 2 08/17/2021 Q3: How often do you have si x or more drinks on one occasion? Never 08/17/2021 Overall Financial Resource Strain (CARDIA) Answe r Date Recorded How hard is it for you to pa y for the very basics like food, housing, medical care, and heating? Not hard at all 08/17/2021 PHQ-2 Answer Date Recorded Total Score 0 08/17/2021 [facility] - Occupational Stress Questionnaire Answer Date Recorded Do you feel stress - tense, restless, nervous, or anxious, or unable to sleep at night because your mind is troubled all the time - these days? Not at all 08/17/2021 Exercise Vital Sign Answer Date Recorde d On average, how many days pe r week do you engage in moderate to strenuous exercise (like a brisk walk)? 0 days 08/17/2021 On average, how many minutes do you engage in exercise at this level? 0 min 08/17/2021 PRAPARE - Transportation Answer Date Re corded In the past 12 months, has l ack of transportation kept you from medical appointments or from getting medications? No 10/2020 In the past 12 months, has l ack of transportation kept you from meetings, work, or from getting things needed for daily living? No 08/17/2021 Childcare Answer Date Recorded Do problems getting child ca re make it difficult for you to work or study? No 08/17/2021 Employment Answer Date Recorded Do you need help finding a [facility] and/or a training program? No 08/17/2021 Hunger Screening Answer Date Recorded Within the past 12 months we worried whether our food would run out before we got money to buy more. Never True 02/26/2024 Within the past 12 months th e food we bought just didn't last and we didn't have money to get more. Never True 02/26/2024 Purpose - Life Answer Date Recorded I have a purpose and direction in my life. Stron gly Agree 08/17/2021 Sex and Gender Information Value Date Recorded Sex Assigned at Not on file Legal Sex Male 8:42 PM EDT Gender Identity Not on file Sexual Orientation Not on file documented as of this encounter Plan of Treatment Not on file documented as of this encounter Goals Goal Patient Goal Type Associated Problems Recent Progress Patient-Stated? Author <enter goal here> General Yes Opal Condon, ARIES Note: Evaluation of progress towards goal: To return home safely with spouse and attend outpatient therapy. documented as of this encounter Procedures Procedure Name Priority Date/Time Associated Diagnosis Comments CBC WITH AUTO DIFFERENTIAL Routine 01/25/2025 11:40 AM EDT 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 disease, or unspecified chronic kidney disease (CMS-HCC) Chronic systolic (congestive) heart failure (CMS-HCC) COMPREHENSIVE METABOLIC PANEL Routine 01/25/2025 11:40 AM EDT 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 disease, or unspecified chronic kidney disease (CMS-HCC) Chronic systolic (congestive) heart failure (CMS-HCC) documented in this encounter Results * (ABNORMAL) CBC auto differential (01/25/2025 11:40 AM EDT) WBC 4.9 4 - 11 x10E9/L 01/25/2025 12:48 PM EDT [facility] RBC Count 3.62(L) 4.1 - 5.7 X10E12/L 01/25/2025 12:48 PM EDT [facility] Hemoglobin 11.2(L) 13 - 17 g/dL 01/25/2025 12:48 PM EDT [facility] Hematocrit 33.7(L) 39 - 50 % 01/25/2025 12:48 PM EDT [facility] MCV 93 80 - 100 fL 01/25/2025 12:48 PM EDT [facility] MCH 31.0 27 - 34 pg 01/25/2025 12:48 PM EDT [facility] MCHC 33.2 32 - 36 g/dL 01/25/2025 12:48 PM EDT [facility] RDW 17.5(H) 11.5 - 15 % 01/25/2025 12:48 PM EDT [facility] Platelet Count 161 150 - 450 X10E9/L 01/25/2025 12:48 PM EDT [facility] MPV 7.9 7 - 12 fL 01/25/2025 12:48 PM EDT [facility] Neutrophils Relative 65.9 % 01/25/2025 12:48 PM EDT [facility] Lymphocytes Relative 15.2 % 01/25/2025 12:48 PM EDT [facility] Monocytes Relative 12.1 % 01/25/2025 12:48 PM EDT [facility] Eosinophils Relative 6.3 % 01/25/2025 12:48 PM EDT [facility] Basophils Relative 0.5 % 01/25/2025 12:48 PM EDT [facility] Neutrophils Absolute (A) 3.3 1.5 - 6.6 10*3/uL 01/25/2025 12:48 PM EDT [facility] Lymphocytes Absolute 0.8(L) 1.0 - 3.5 10*3/uL 01/25/2025 12:48 PM EDT [facility] Monocytes Absolute 0.6 0.0 - 0.9 10*3/uL 01/25/2025 12:48 PM EDT [facility] Eosinophils Absolute 0.3 0.0 - 0.4 10*3/uL 01/25/2025 12:48 PM EDT [facility] Basophils Absolute 0.0 0.0 - 0.2 10*3/uL 01/25/2025 12:48 PM EDT [facility] Differential Type AUTOMATED DIFFERENTIAL 01/25/2025 12:48 PM EDT [facility] Blood Venous blood / Unknown 01/25/2025 11:40 AM EDT 01/25/2025 12:16 PM EDT us Samm Serrano MD LAB BLOOD ORDERABLES Final Resu lt [facility] [address] [place] [address], * (ABNORMAL) Comprehensive metabolic panel (01/25/2025 11:40 AM EDT) SODIUM 135 134 - 146 mmol/L 01/25/2025 12:48 PM EDT [facility] POTASSIUM 4.0 3.5 - 5.0 mmol/L 01/25/2025 12:48 PM EDT [facility] CHLORIDE 104 98 - 109 mmol/L 01/25/2025 12:48 PM EDT [facility] CARBON DIOXIDE 24 22 - 32 mmol/L 01/25/2025 12:48 PM EDT [facility] ANION GAP 7 5 - 15 mmol/L 01/25/2025 12:48 PM EDT [facility] BLOOD UREA NITROGEN 47(H) 5 - 27 mg/dL 01/25/2025 12:48 PM EDT [facility] CREATININE 2.01(H) 0.70 - 1.20 mg/dL 01/25/2025 12:48 PM EDT [facility] Comment:METHOD TRACEABLE TO IDMS STANDARD GLUCOSE 97 65 - 99 mg/dL 01/25/2025 12:48 PM EDT [facility] CALCIUM 8.4(L) 8.5 - 10.5 mg/dL 01/25/2025 12:48 PM EDT [facility] TOTAL PROTEIN 6.9 6.0 - 8.0 g/dL 01/25/2025 12:48 PM EDT [facility] ALBUMIN 3.3 3.2 - 5.3 g/dL 01/25/2025 12:48 PM EDT [facility] ALKALINE PHOSPHATASE 122 39 - 130 U/L 01/25/2025 12:48 PM EDT [facility] AST 22 <=41 U/L 01/25/2025 12:48 PM EDT [facility] ALT 11 <=40 U/L 01/25/2025 12:48 PM EDT [facility] BILIRUBIN,TOTAL 0.9 0.3 - 1.2 mg/dL 01/25/2025 12:48 PM EDT [facility] EGFR Non-Race Dependent 33(L) >=60 ml/min/1.7 3sq.m 01/25/2025 12:48 PM EDT [facility] Comment: eGFR not reported due to non-numeric value for Creatinine. Reported eGFR is based on the CKD-EPI 2020 equation that does not use a race coefficient. Blood Venous blood / Unknown 01/25/2025 11:40 AM EDT 01/25/2025 12:16 PM EDT us Samm Serrano MD LAB BLOOD ORDERABLES Final Resu lt [facility] [address] [place] [address] documented in this encounter Visit Diagnoses Diagnosis 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 disease, or unspecified chronic kidney disease (CMS-HCC) Chronic systolic (congestive) heart failure (CMS-HCC) documented in this encounter Additional Health Concerns Assessment Noted Time PHQ-9 Depression Total Score: 0 08/17/20 21 12:12 PM EST documented as of this encounter Care Teams Clinical Manager Home Care Relationship Specialty Start Date End Date Samm Serrano MD PCP - General Family Medicine 02/26/24 documented as of this encounter
--- OUTSIDE RECORDS SUMMARY | 2025-03-04 15:22 | XMS_ITS ---
Author Organization [facility] Care Team Providers Care Bookkeeping Machine Mechanic Name Role Phone FRANCISCA THOMPSON Unavailable Unavailable Allergies and adverse reactions Code CodeSystem Substance Reaction Severity StartDate Concern Status Latex Unknown 05/23/2022 active Care Team Name Role Address Phone Organization Dates FRANCISCA THOMPSON [facility] [address] [place], [address], [place] (Office): : [facility] 05/24/2022 - 06/02/2022 Immunizations Immunization Status Vaccine Details Vaccine Code CodeSystem Date Notes TB 2 Step Mantoux Skin Test completed tuberculin skin test; unspecified formulation lotNumber: [id number] expiry: 09/15/2023 Mfg: [employer] Given 0.1 ml Right Forearm intradermally Step 2 of Multi-step with next step required 98 CVX created date: 05/31/2022 consent date: 05/30/2022 administere d date: 05/31/2022 TB 2 Step Mantoux Skin Test completed tuberculin skin test; unspecified formulation Given 0.1 ml Left Forearm intradermally Step 1 of Multi-step with next step required 98 CVX created date: 05/25/2022 consent date: 05/25/2022 administere d date: 05/25/2022 Mental Status Section Date Assessment Total Score Description 06/02/2022 BIMS 15 cognitively int act CAM 0 No delirium ind icated PHQ-9 05 mild depression 05/30/2022 BIMS 15 cognitively int act CAM 0 No delirium ind icated PHQ-9 07 mild depression Problems Problem # Description Date of onset Resolved Date Code CodeSystem Concern Status 1 ATHEROSCLEROTIC HEART DISEASE OF [place] CORONARY ARTERY WITH OTHER FORMS OF ANGINA PECTORIS 05/23/[id number] active 2 CHRONIC COMBINED SYSTOLIC (CONGESTIVE) AND DIASTOLIC (CONGESTIVE) HEART FAILURE 05/23/[address] active 3 CHRONIC KIDNEY DISEASE, UNSPECIFIED 05/23/[address] active 4 ESSENTIAL (PRIMARY) HYPERTENSION 05/23/[address] active 5 HYPERLIPIDEMIA, UNSPECIFIED 05/23/[address] active 6 HYPOTHYROIDISM, UNSPECIFIED 05/23/[address] active 7 IRON DEFICIENCY ANEMIA, UNSPECIFIED 05/23/[address] active 8 MAJOR DEPRESSIVE DISORDER, RECURRENT, UNSPECIFIED 05/23/[address] active 9 NON-ST ELEVATION (NSTEMI) MYOCARDIAL INFARCTION 05/23/[address] active 10 NONRHEUMATIC MITRAL (VALVE) INSUFFICIENCY 05/23/[address] active 11 PAROXYSMAL TACHYCARDIA, UNSPECIFIED 05/23/[address] active 12 PERIPHERAL VASCULAR DISEASE, UNSPECIFIED 05/23/[address] active 13 PERSONAL HISTORY OF MALIGNANT NEOPLASM OF PROSTATE 05/23/[address] active 14 PERSONAL HISTORY OF TRANSIENT ISCHEMIC ATTACK (TIA), AND CEREBRAL INFARCTION WITHOUT RESIDUAL DEFICITS 05/23/[address] active 15 PRESENCE OF AUTOMATIC (IMPLANTABLE) CARDIAC DEFIBRILLATOR 05/23/[address] active 16 TYPE 2 DIABETES MELLITUS WITH DIABETIC CHRONIC KIDNEY DISEASE 05/23/[address] active Reason for Referral No Reasons for Referral Entered Social History Social History Observation Description Start Date End Date Code Code System Current Smoking Status Tobacco smoking consumption unknown 163404870 SNOMED CT Sex Assigned At Male 1940 91173-4 [facility] Gender Identity Vital Signs Code Code System Vitals Name Values and Units Timing Information 8310-5 [facility] Body Temperature Value=98.2 Units= F 06/02/2022 80096-9 [facility] Pain Level Value=0.0 06/01/2022 9279-1 [facility] Respiratory Rate Value=16.0 Units=/m in 06/01/2022 8462-4 [facility] Blood Pressure-Diastolic Value=60 Un its=mmHg 06/01/2022 8480-6 [facility] Blood Pressure-Systolic Kukfv=420 Un its=mmHg 06/01/2022 8867-4 [facility] Heart rate Value=90.0 Units=/min 15679-0 [facility] O2 % BldC Oximetry Value=95.0 Units= % 06/01/2022 23618-1 [facility] Weight Qufvd=806.6 Units=Lbs 8302-2 [facility] Height Value=72.0 Units=Inches 05/25/2022
--- OUTSIDE RECORDS SUMMARY | 2025-03-04 15:22 | XMS_ITS | Encounter Summary ---
Author Organization [facility] [employer] [facility] tem Address [id number] [address] [place] [address] Care Team Providers Care Cookie Breaker Name Role Phone Samm Serrano MD Primary Care Provider [phone] Encounter Details Date Type Department Care Team (Late st Contact Info) Description 01/18/2025 Lab Requisition [facility] - Lab [address] [place] [id number] Samm Serrano MD [address] [place] [address] Hyperkalemia; 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 disease, or unspecified chronic kidney disease (CMS-HCC); Chronic systolic (congestive) heart failure (CMS-HCC); 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[facility]-HCC); Hypothyroidism, unspecified; Gout, unspecified Social History Tobacco Use Types Packs/Day Years [...] week 08/17/2021 How often do you attend chur ch or yazidi services? Never 08/17/2021 Do you belong to any clubs o r organizations such as advent groups, unions, fraternal or athletic groups, or [...] Answer Date Recorded Total Score 0 08/17/2021 [facility] - Occupational Stress [...] Recorded Do you need help finding a [place] career center and/or a training program? No [...] <enter goal here> General Yes Opal Condon, RN Note: Evaluation of progress towards goal: To return home safely with spouse and attend outpatient therapy. documented as of this encounter Procedures Procedure Name Priority Date/Time Associated Diagnosis Comments THYROID PROFILE INCLUDES TSH FT4 Routine 01/18/2025 12:19 PM EDT Hyperkalemia 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 disease, or unspecified chronic kidney disease ([facility]-HCC) Chronic systolic (congestive) heart failure ([facility]-HCC) 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[facility]) Hypothyroidism, unspecified Gout, unspecified VITAMIN D 25 HYDROXY Routine 01/18/2025 12:19 PM EDT Hyperkalemia 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 disease, or unspecified chronic kidney disease (CMS-HCC) Chronic systolic (congestive) heart failure ([facility]-HCC) 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[facility]-H[facility]) Hypothyroidism, unspecified Gout, unspecified URIC ACID Routine 01/18/2025 12:19 PM EDT Hyperkalemia 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 disease, or unspecified chronic kidney disease (CMS-HCC) Chronic systolic (congestive) heart failure ([facility]-HCC) 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[facility]) Hypothyroidism, unspecified Gout, unspecified T3, FREE Routine 01/18/2025 12:19 PM EDT Hyperkalemia 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 disease, or unspecified chronic kidney disease (CMS-HCC) Chronic systolic (congestive) heart failure (CMS-HCC) 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[facility]-H[facility]) Hypothyroidism, unspecified Gout, unspecified B-TYPE NATRIURETIC PEPTIDE Routine 01/18/2025 12:19 PM EDT Hyperkalemia 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 disease, or unspecified chronic kidney disease (CMS-HCC) Chronic systolic (congestive) heart failure (CMS-HCC) 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[facility]) Hypothyroidism, unspecified Gout, unspecified MAGNESIUM Routine 01/18/2025 12:19 PM EDT Hyperkalemia 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 disease, or unspecified chronic kidney disease (CMS-HCC) Chronic systolic (congestive) heart failure (CMS-HCC) 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[facility]) Hypothyroidism, unspecified Gout, unspecified LIPID PROFILE Routine 01/18/2025 12:19 PM EDT Hyperkalemia 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 disease, or unspecified chronic kidney disease (CMS-HCC) Chronic systolic (congestive) heart failure (CMS-HCC) 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[facility]) Hypothyroidism, unspecified Gout, unspecified COMPREHENSIVE METABOLIC PANEL Routine 01/18/2025 12:19 PM EDT Hyperkalemia 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 disease, or unspecified chronic kidney disease (CMS-HCC) Chronic systolic (congestive) heart failure (CMS-HCC) 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[facility]) Hypothyroidism, unspecified Gout, unspecified documented in this encounter Results * (ABNORMAL) Lipid profile (01/18/2025 12:19 PM EDT) CHOLESTEROL 144(L) 150 - 200 mg/dL 01/19/2025 6:47 PM EDT [facility] TRIGLYCERIDE 51 27 - 150 mg/dL 01/19/2025 6:47 PM EDT [facility] HDL CHOLESTEROL 46 >39 mg/dL 6:47 PM EDT [facility] Comment: HDL <40 mg/dL - High Risk HDL > or = 40mg/dL- Desirable HDL >60 mg/dL - Negative Risk LDL (CALC) 88 <130 mg/dL 01/19/2025 6:47 PM EDT [facility] Comment: LDL <100 mg/dL - Desirable LDL >160 mg/dL - High Risk CHOLESTEROL:HDL 3.1 1.0 - 5.0 6:47 PM EDT [facility] VERY LOW LIPOPROTEIN 10 0 - 30 mg/dL 01/19/2025 6:47 PM EDT [facility] Blood Venous blood / Unknown Venipuncture / Unknown 01/18/2025 12:19 PM EDT 01/18/2025 1:34 PM EDT us Samm Serrano MD LAB BLOOD ORDERABLES Final Resu lt [facility] [address] [place] [address], [place] [phone] * Vitamin D 25 hydroxy (01/18/2025 12:19 PM EDT) VITAMIN D 25 HYD TOT 41.6 30.0 - 100.0 ng/mL 01/19/2025 7:06 PM EDT [facility] Blood Venous blood / Unknown Venipuncture / Unknown 01/18/2025 12:19 PM EDT 01/18/2025 1:34 PM EDT Narrative [facility] - 01/19/2025 7:06 PM EDT Vitamin D status 25 [place] Vitamin D Deficiency <20 ng/mL Insufficiency 20-29 ng/mL Sufficiency 30-100 ng/mL Toxicity >100 ng/mL NOTE: A pediatric reference range has not been established by the senior software architect of this kit. The [place] [employer] recommends a Vitamin D level of = or >20ng/mL in infants and children. us Samm Serrano MD LAB BLOOD ORDERABLES Final Resu lt [facility] [address] [place] [address], [place] [phone] * (ABNORMAL) Comprehensive metabolic panel (01/18/2025 12:19 PM EDT) SODIUM 134 134 - 146 mmol/L 01/18/2025 2:52 PM EDT [facility] POTASSIUM 3.9 3.5 - 5.0 mmol/L 01/18/2025 2:52 PM EDT [facility] CHLORIDE 102 98 - 109 mmol/L 01/18/2025 2:52 PM EDT [facility] CARBON DIOXIDE 23 22 - 32 mmol/L 01/18/2025 2:52 PM EDT [facility] ANION GAP 9 5 - 15 mmol/L 01/18/2025 2:52 PM EDT [facility] BLOOD UREA NITROGEN 58(H) 5 - 27 mg/dL 01/18/2025 2:52 PM EDT [facility] CREATININE 2.03(H) 0.70 - 1.20 mg/dL 01/18/2025 2:52 PM EDT [facility] Comment:METHOD TRACEABLE TO IDMS STANDARD GLUCOSE 93 65 - 99 mg/dL 01/18/2025 2:52 PM EDT [facility] CALCIUM 8.9 8.5 - 10.5 mg/dL 01/18/2025 2:52 PM EDT [facility] TOTAL PROTEIN 7.3 6.0 - 8.0 g/dL 01/18/2025 2:52 PM EDT [facility] ALBUMIN 3.5 3.2 - 5.3 g/dL 01/18/2025 2:52 PM EDT [facility] ALKALINE PHOSPHATASE 118 39 - 130 U/L 01/18/2025 2:52 PM EDT [facility] AST 24 <=41 U/L 01/18/2025 2:52 PM EDT [facility] ALT 12 <=40 U/L 01/18/2025 2:52 PM EDT [facility] BILIRUBIN,TOTAL 1.2 0.3 - 1.2 mg/dL 01/18/2025 2:52 PM EDT [facility] EGFR Non-Race Dependent 32(L) >=60 ml/min/1.7 3sq.m 01/18/2025 2:52 PM EDT [facility] Comment: eGFR not reported due to non-numeric value for Creatinine. Reported eGFR is based on the CKD-EPI 2020 equation that does not use a race coefficient. Blood Venous blood / Unknown Venipuncture / Unknown 01/18/2025 12:19 PM EDT 01/18/2025 1:34 PM EDT us Samm Serrano MD LAB BLOOD ORDERABLES Final Resu lt [facility] [address] [place] [address], * (ABNORMAL) Uric acid (01/18/2025 12:19 PM EDT) URIC ACID 11.4(H) 2.6 - 7.2 mg/dL 01/18/2025 2:51 PM EDT [facility] Blood Venous blood / Unknown Venipuncture / Unknown 01/18/2025 12:19 PM EDT 01/18/2025 1:34 PM EDT us Samm Serrano MD LAB BLOOD ORDERABLES Final Resu lt [address] [place] [address], [place] * (ABNORMAL) Thyroid profile includes TSH FT4 (01/18/2025 12:19 PM EDT) FREE T4 1.29 0.61 - 1.60 ng/dL 01/18/2025 2:51 PM EDT [facility] TSH 8.64(H) 0.49 - 4.67 uIU/mL 01/18/2025 2:51 PM EDT [facility] Blood Venous blood / Unknown Venipuncture / Unknown 01/18/2025 12:19 PM EDT 01/18/2025 1:34 PM EDT us Samm Serrano MD LAB BLOOD ORDERABLES Final Resu lt Performing Organization Address [facility]/ZIP Co de Phone Number [address] [place] [address], [place] * (ABNORMAL) T3, free (01/18/2025 12:19 PM EDT) FREE T3 2.15(L) 2.50 - 3.90 pg/mL 01/19/2025 6:53 PM EDT [facility] Blood Venous blood / Unknown Venipuncture / Unknown 01/18/2025 12:19 PM EDT 01/18/2025 1:34 PM EDT us Samm Serrano MD LAB BLOOD ORDERABLES Final Resu lt [facility] [address] [place] [address], [place] [phone] * Magnesium (01/18/2025 12:19 PM EDT) MAGNESIUM 2.6 1.8 - 2.6 mg/dL 01/18/2025 2:51 PM EDT [facility] Blood Venous blood / Unknown Venipuncture / Unknown 01/18/2025 12:19 PM EDT 01/18/2025 1:34 PM EDT us Samm Serrano MD LAB BLOOD ORDERABLES Final Resu lt Performing Organization Address City/[facility]/ZIP Co de Phone Number [address] [place] [address], * (ABNORMAL) B-type natriuretic peptide (01/18/2025 12:19 PM EDT) BNP 2,720(H) <=100 pg/mL 01/18/2025 2:51 PM EDT [facility] Blood Venous blood / Unknown Venipuncture / Unknown 01/18/2025 12:19 PM EDT 01/18/2025 1:34 PM EDT us Samm Serrano MD LAB BLOOD ORDERABLES Final Resu lt Performing Organization Address City/[facility]/ZIP Co de Phone Number [address] [place] [address], documented in this encounter Visit Diagnoses Diagnosis Hyperkalemia Hyperpotassemia 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 disease, or unspecified chronic kidney disease (CMS-HCC) Chronic systolic (congestive) heart failure (CMS-HCC) 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) Hypothyroidism, unspecified Gout, unspecified documented in this encounter Additional Health Concerns Assessment Noted Time PHQ-9 Depression Total Score: 0 08/17/20 21 12:12 PM EST documented as of this encounter Care Teams Cookie Breaker Relationship Specialty Start Date End Date Samm Serrano MD PCP - General Family Medicine 02/26/24 documented as of this encounter
--- OUTSIDE RECORDS SUMMARY | 2025-03-04 15:22 | XMS_ITS | Patient Health Record ---
Author Organization [facility] Address [address] [place], [place] [id number] Care Team Providers Care Flower Grader Name Role Phone Kayli Sotkes Unavailable [phone] Allergies Allergen (clinical drug ingredient) Drug/Non Drug Allergy documented on EMR Reaction Allergy Type Onset Date Status Latex Latex Unknown Allergy Active Reason For Referral No Information Medications Medication SIG (Take, Route, Frequency, Duration) Notes Start Date End Date Status Amiodarone HCl 200 MG Oral for 30 Days Active Torsemide 20 MG Oral for 30 Days Active Atorvastatin Calcium 40 MG Oral for 90 Days Active Metoprolol Succinate ER 25 MG Oral for 90 Days Active Escitalopram Oxalate 5 MG Oral for 30 Days Not-Taking Spironolactone 25 MG TAKE 1/2 TABLET BY MOUTH EVERY MORNING Oral for 30 Days Not-Taking Furosemide 40 MG TAKE ONE TABLET BY MOUTH IN THE MORNING AND AT BEDTIME Oral for 30 Days Not-Taking TISSUE TECHNOLOGIST Thyroid Active Furosemide 40 MG Oral for 90 Days Not-Taking Eliquis 2.5 MG Oral for 7 Days Active Spironolactone 25 MG Oral for 90 Days Not-Taking Social History Sex Assigned At : Social History Observation Description Sex Assigned At Male Tobacco Control (Standard) Question Answer Notes Additional Findings: Tobacco non-user Current no nsmoker Vital Signs Heart Rate 52 /min 09/02/2024 Blood pressure diastolic 46 mm Hg 09/02/2024 Height-cm 182.88 cm 09/02/2024 Weight-kg 75.3 kg 09/02/2024 Height 6'0 in 09/02/2024 Blood pressure systolic 93 mm Hg 09/02/2024 Weight 166 lbs 09/02/2024 BMI 22.51 kg/m2 09/02/2024 Encounters Encounter Location Date Provider Diagnosis Dental Main [address] [place], [place] [id number] 09/02/2024 Kaylicorky Stokes Encounter for scre ening for dental disorders Z13.84 ; Necrosis of pulp K04.1 ; Encounter for dental examination and cleaning with abnormal findings Z01.21 ; Dental caries into dentine K02.62 ; Caries of dentin K02.62 and Dental caries K02.9 Assessments Encounter Date Diagnosis (ICD Code) Assessment Notes Treatment Notes Treatment Clinical Notes Section Notes 09/02/2024 Encounter for screening for dental disorders (ICD-10 - Z13.84) 09/02/2024 Necrosis of pulp (ICD-10 - K04.1) 09/02/2024 Encounter for dental examination and cleaning with abnormal findings (ICD-10 - Z01.21) 09/02/2024 Dental caries into dentine (ICD-10 - K02.62) 09/02/2024 Caries of dentin (ICD-10 - K02.62) 09/02/2024 Dental caries (ICD-10 - K02.9) Plan Of Treatment No Information Insurance Providers Payer Name Payer Address Payer Phone Subscriber Number Group Number Insured Name Patient Relationship to Insured Coverage Start Date Coverage End Date SFS [id number] responsible [address] [place] [address] José Miguel Antonio Self - patient is the insured 4 5
--- OUTSIDE RECORDS SUMMARY | 2025-03-04 15:22 | XMS_ITS | Encounter Summary ---
Author Organization [facility] [employer] [facility] tem Address [id number] [address] [place] [address] Care Team Providers Care Combo Welder Name Role Phone Samm Serrano MD Primary Care Provider [phone] Encounter Details Date Type Department Care Team (Late st Contact Info) Description 02/09/2025 Lab Requisition [facility] - Lab [address] [place] [phone] Samm Serrano MD [address] [place] [address] Acute kidney failure, unspecified; 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 disease, or unspecified chronic kidney disease (CMS-HCC); Chronic systolic (congestive) heart failure ([facility]) Social History Tobacco Use Types Packs/Day Years [...] week 08/17/2021 How often do you attend [facility] or catholic services? Never 08/17/2021 Do you belong to any clubs o r organizations such as adventist groups, unions, fraternal or athletic groups, or [...] Answer Date Recorded Total Score 0 08/17/2021 [facility] Occupat [facility] Health - Occupational Stress [...] Recorded Do you need help finding a [facility] career center and/or a training program? No [...] Diagnosis Comments CBC WITH AUTO DIFFERENTIAL Routine 02/09/2025 3:27 PM EDT Acute kidney failure, unspecified 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 disease, or unspecified chronic kidney disease (CMS-HCC) Chronic systolic (congestive) heart failure (CMS-HCC) COMPREHENSIVE METABOLIC PANEL Routine 02/09/2025 3:27 PM EDT Acute kidney failure, unspecified 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 disease, or unspecified chronic kidney disease (CMS-HCC) Chronic systolic (congestive) heart failure (CMS-HCC) documented in this encounter Results * (ABNORMAL) CBC auto differential (02/09/2025 3:27 PM EDT) WBC 4.2 4 - 11 x10E9/L 02/09/2025 4:39 PM EDT [facility] RBC Count 3.74(L) 4.1 - 5.7 X10E12/L 02/09/2025 4:39 PM EDT [facility] Hemoglobin 11.7(L) 13 - 17 g/dL 02/09/2025 4:39 PM EDT [facility] Hematocrit 35.2(L) 39 - 50 % 02/09/2025 4:39 PM EDT [facility] MCV 94 80 - 100 fL 02/09/2025 4:39 PM EDT [facility] MCH 31.3 27 - 34 pg 02/09/2025 4:39 PM EDT [facility] MCHC 33.3 32 - 36 g/dL 02/09/2025 4:39 PM EDT [facility] RDW 17.6(H) 11.5 - 15 % 02/09/2025 4:39 PM EDT [facility] Platelet Count 161 150 - 450 X10E9/L 02/09/2025 4:39 PM EDT [facility] MPV 8.1 7 - 12 fL 02/09/2025 4:39 PM EDT [facility] Neutrophils Relative 62.7 % 02/09/2025 4:39 PM EDT [facility] Lymphocytes Relative 16.4 % 02/09/2025 4:39 PM EDT [facility] Monocytes Relative 14.1 % 02/09/2025 4:39 PM EDT [facility] Eosinophils Relative 6.3 % 02/09/2025 4:39 PM EDT [facility] Basophils Relative 0.5 % 02/09/2025 4:39 PM EDT [facility] Neutrophils Absolute (A) 2.6 1.5 - 6.6 10*3/uL 02/09/2025 4:39 PM EDT [facility] Lymphocytes Absolute 0.7(L) 1.0 - 3.5 10*3/uL 02/09/2025 4:39 PM EDT [facility] Monocytes Absolute 0.6 0.0 - 0.9 10*3/uL 02/09/2025 4:39 PM EDT [facility] Eosinophils Absolute 0.3 0.0 - 0.4 10*3/uL 02/09/2025 4:39 PM EDT [facility] Basophils Absolute 0.0 0.0 - 0.2 10*3/uL 02/09/2025 4:39 PM EDT [facility] Differential Type AUTOMATED DIFFERENTIAL 02/09/2025 4:39 PM EDT [facility] Blood Venous blood / Unknown 02/09/2025 3:27 PM EDT 02/09/2025 4:19 PM EDT us Samm Serrano MD LAB BLOOD ORDERABLES Final Resu lt [facility] [address] [place] [address], * (ABNORMAL) Comprehensive metabolic panel (02/09/2025 3:27 PM EDT) SODIUM 133(L) 134 - 146 mmol/L 02/09/2025 4:45 PM EDT [facility] POTASSIUM 3.8 3.5 - 5.0 mmol/L 02/09/2025 4:45 PM EDT [facility] CHLORIDE 102 98 - 109 mmol/L 02/09/2025 4:45 PM EDT [facility] CARBON DIOXIDE 27 22 - 32 mmol/L 02/09/2025 4:45 PM EDT [facility] ANION GAP 4(L) 5 - 15 mmol/L 02/09/2025 4:45 PM EDT [facility] BLOOD UREA NITROGEN 49(H) 5 - 27 mg/dL 02/09/2025 4:45 PM EDT [facility] CREATININE 2.18(H) 0.70 - 1.20 mg/dL 02/09/2025 4:45 PM EDT [facility] Comment:METHOD TRACEABLE TO IDMS STANDARD GLUCOSE 88 65 - 99 mg/dL 02/09/2025 4:45 PM EDT [facility] CALCIUM 8.6 8.5 - 10.5 mg/dL 02/09/2025 4:45 PM EDT [facility] TOTAL PROTEIN 6.8 6.0 - 8.0 g/dL 02/09/2025 4:45 PM EDT [facility] ALBUMIN 3.3 3.2 - 5.3 g/dL 02/09/2025 4:45 PM EDT [facility] ALKALINE PHOSPHATASE 117 39 - 130 U/L 02/09/2025 4:45 PM EDT [facility] AST 20 <=41 U/L 02/09/2025 4:45 PM EDT [facility] ALT 11 <=40 U/L 02/09/2025 4:45 PM EDT [facility] BILIRUBIN,TOTAL 1.1 0.3 - 1.2 mg/dL 02/09/2025 4:45 PM EDT [facility] EGFR Non-Race Dependent 29(L) >=60 ml/min/1.7 3sq.m 02/09/2025 4:45 PM EDT [facility] Comment: eGFR not reported due to non-numeric value for Creatinine. Reported eGFR is based on the CKD-EPI 2020 equation that does not use a race coefficient. Blood Venous blood / Unknown 02/09/2025 3:27 PM EDT 02/09/2025 4:19 PM EDT us Samm Serrano MD LAB BLOOD ORDERABLES Final Resu lt Performing Organization Address City/State/[facility] Co de Phone Number [facility] [address] [place] [address] documented in this encounter Visit Diagnoses Diagnosis Acute kidney failure, unspecified 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 disease, or unspecified chronic kidney disease (CMS-HCC) Chronic systolic (congestive) heart failure (CMS-HCC) documented in this encounter Additional Health Concerns Assessment Noted Time PHQ-9 Depression Total Score: 0 08/17/20 21 12:12 PM EST documented as of this encounter Care Teams Combo Welder Relationship Specialty Start Date End Date Samm Serrano MD PCP - General Family Medicine 02/26/24 documented as of this encounter
--- OUTSIDE RECORDS SUMMARY | 2025-03-04 15:22 | XMS_ITS | Encounter Summary ---
Author Organization [facility] [employer] [facility] tem Address [id number] [address] [place] [address] Care Team Providers Care Food Services Director Name Role Phone Samm Serrano MD Primary Care Provider [phone] Encounter Details Date Type Department Care Team (Late st Contact Info) Description 02/25/2024 Telephone [facility] Card[facility] [address] [place] [phone] Sheila Finney RN Social History Tobacco Use Types Packs/Day Years [...] often do you attend chur ch or anabaptist services? Never 08/17/2021 Do you belong to any clubs o r organizations such as hindu groups, unions, fraternal or athletic groups, or [...] Answer Date Recorded Total Score 0 08/17/2021 [facility] Occupat ional Health - Occupational Stress [...] Do you need help finding a l al career center and/or a training program? No [...] a purpose and direction in my life. Elder laurent Agree 08/17/2021 Sex and Gender Information Value [...] Author <enter goal here> General Yes Opal Condon RN Note: Evaluation of progress towards goal: To return home safely with spouse and attend outpatient therapy. documented as of this encounter Visit Diagnoses Not on filedocumented in this encounter Additional Health Concerns Assessment Noted Time PHQ-9 Depression Total Score: 0 08/17/20 21 12:12 PM EST documented as of this encounter Care Teams Food Services Director Relationship Specialty Start Date End Date Samm Serrano MD PCP - General Family Medicine 02/26/24 documented as of this encounter
--- OUTSIDE RECORDS SUMMARY | 2025-03-04 15:22 | XMS_ITS | Clinical Summary ---
Author Organization [facility] Address [address] [place] [address] Care Team Providers Care College Archivist Name Role Phone Samm Serrano MD Primary Care Provider [phone] Allergies Active Allergy Reactions Criticality Noted Date Comments Penicillins 12/03/2024 Medications apixaban (Eliquis) 2.5 MG tablet Take 2.5 mg by mouth in the morning and 2.5 mg before bedtime. Active levothyroxine (Tirosint) 88 MCG capsule Take by mouth Daily before meals Active metoprolol succinate XL (Toprol-XL) 25 MG 24 hr tablet Take by mouth Do not crush or chew. Active mexiletine (Mexitil) 150 MG capsule Take 150 mg by mouth every 8 (eight) hours Active bumetanide (Bumex) 2 MG tablet Take by mouth Daily Active cetirizine (ZyrTEC) 10 MG tablet Take by mouth Active thiamine (Vitamin B-1) 100 MG tablet Take 100 mg by mouth Daily Active potassium chloride CR (Klor-Con M20) 20 MEQ ER tablet Take 20 mEq by mouth Daily Do not crush or chew. Active ondansetron (Zofran) 4 MG tablet Take by mouth Active Encounters Date Type Department Care Team Description 12/03/2024 10:45 AM EDT Office Visit [facility] [address] [place] [address] Rohit Covington DPM Dystrophic nail (Primary Dx); Pain around toenail, right foot; Pain around toenail, left foot; Peripheral arterial disease 12/03/2024 Bamboo flowsheet [facility] [address] [place] [address] Rohit Covington DPM 12/03/2024 Travel 12/02/2024 Travel from Last 3 Months Social History Tobacco Use Types Packs/Day Years Used Date Smoking Tobacco: Never Assessed Sex and Gender Information Value Date Recorded Sex Assigned at Not on file Legal Sex Male 8:01 PM EDT Gender Identity Not on file Sexual Orientation Not on file Last Filed Vital Signs Vital Sign Reading Time Taken Comments Blood Pressure 132/82 11/06/2017 12:00 PM EST Pulse - - Temperature - - Respiratory Rate - - Oxygen Saturation - - Inhaled Oxygen Concentration - - Weight 72.6 kg (160 lb) 12/03/2024 10:53 AM EDT Height 182.9 cm (6') 12/03/2024 10:53 AM EDT Body Mass Index 21.7 12/03/2024 10:53 AM EDT Plan of Treatment Upcoming Encounters Date Type Department Care Team (Late st Contact Info) Description 03/11/2025 1:30 PM EDT Procedure Visit [facility] [address] [place] [address] Rohit Covington DPM [address] [place], [place] [id number] Insurance [employer] Member Subscriber Plan / Payer (Ef fective 2021-Present) Name:PacoJosé Miguel Jr. Relation to Subscriber:Self Name:Pramod Antoniodg Juarez Jr. Payer ID:Not on file Type:Not on file Address: [place] [id number] Care Teams College Archivist Relationship Specialty Start Date End Date Samm Serrano MD PCP - General Family Medicine 12/03/24
--- OUTSIDE RECORDS SUMMARY | 2025-03-04 15:22 | XMS_ITS | Encounter Summary ---
Author Organization [facility] Address [address] [place] [address] Care Team Providers Care Stallion Keeper Name Role Phone Samm Serrano MD Primary Care Provider [phone] Tom Gonzalez Unavailable [phone] Andreas Pierre MD Unavailable Virgil Carrillo MD Unavailable Jethro Mendoza MD Unavailable Isaías Kinney MD Unavailable [phone] Source Comments In the event this information is protected by the Federal Confidentiality of Alcohol and Drug AbusePatient Records regulations: The Federal rules restrict any use of the information to criminally investigate or prosecute any alcohol or drug abuse patient.[facility] Encounter Details Date Type Department Care Team (Late st Contact Info) Description 03/03/2025 Get Medical Advice Cardiology [address] [place], [place] [phone] Isaías Kinney MD [address] [place] [address] Urgent Social History Tobacco Use Types Packs/Day Years Used Date Smoking Tobacco: Former Cigarettes 1 10 0 04/28/1972 - 04/28/1982 Pipe Passive Smoke Exposure: Never Smokeless Tobacco: Never Alcohol Use Standard Drinks/Week Comments Not Currently 0 (1 standard drink = 0.6 oz pur e alcohol) rarely [facility] Utilities Answer Date Recorded In the past 12 months has th e [employer], gas, oil, or water [employer] threatened to shut off services in your [...] is lower risk 3 02/05/2024 Data from: https://www.neighborhoodatlas.medicine.[facility].edu/. Last address used for calculation [address] 02/05/2024 Sex and Gender [...] 3:03 PM EDT Akosua Ramírez, ARIES * Do you have serious difficulty walking or climbing stairs? Answer Date of Assessment Author No 03/03/2025 3:03 PM EDT Akosua Ramírez, ARIES * Do you have difficulty dressing or [...] 03/03/2025 3:03 PM EDT Akosua Ramírez, RN documented in this encounter Plan of Treatment Upcoming Encounters Date Type Department Care Team (Late st Contact Info) Description 06/30/2025 10:00 AM EDT Office Visit Cardiology [address] [place] [address] Isaías Kinney MD [address] [place] [address] DX: Chronic diastolic heart failure documented as of this encounter Goals Goal Patient Goal Type Associated Problems Recent Progress Patient-Stated? Author Blood Pressure < 130/80 Blood Pressure 134/63( 025 3:00 PM EDT) Lidia Soto RN documented as of this encounter Visit Diagnoses Not on filedocumented in this encounter Care Teams Stallion Keeper Relationship Specialty Start Date End Date Samm Serrano MD PCP - General Family Medicine 05/30/12 Tom Gonzalez [address] [place] [address] Primary Staff Physician Cardiology 12/02/18 Andreas Pierre MD [address] [place] [address] Primary Staff Physician Cardiology 04/26/23 Virgil Carrillo MD [address] [place] [address] Primary Staff Physician Cardiology 10/29/23 Jethro Mendoza MD [address] [place] [address] Primary Staff Physician Cardiology 12/26/23 Isaías Kinney MD [facility] [place] [address] Primary Staff Physician Cardiology 01/10/24 documented as of this encounter
--- OUTSIDE RECORDS SUMMARY | 2025-03-04 15:22 | XMS_ITS | Encounter Summary ---
Author Organization [facility] Address [address] [place] [address] Care Team Providers Care Maori Liaison Adviser Name Role Phone Samm Serrano MD Primary Care Provider [phone] Tom Gonzalez Unavailable [phone] Andreas Pierre MD Unavailable Virgil Carrillo MD Unavailable Jethro Mendoza MD Unavailable Isaías Kinney MD Unavailable [phone] Source Comments In the event this information is protected by the Federal Confidentiality of Alcohol and Drug AbusePatient Records regulations: The Federal rules restrict any use of the information to criminally investigate or prosecute any alcohol or drug abuse patient.[facility] Encounter Details Date Type Department Care Team (Late st Contact Info) Description 09/28/2024 Patient Msg Radiation Oncology [address] [place] [address] [place] [address] Yung Andrade MD [address] [place] [address] Appointment Cancellation Request Social History Tobacco Use [...] any time in the past 12 m ont, were you homeless or living in a senior living (including now)? Yes 07/22/2024 Area Deprivation Index Answer Date Rich rded National Score (1-100), lower number is lower ri sk 52 02/05/2024 State Score (1-10), lower number is lower risk 3 02/05/2024 Data from: https://www.neighborhoodatlas.medicine.[facility].edu/. Last address used for calculation [address] [place] [address] [address] 02/05/2024 Sex and Gender Information [...] Date Author No 09/25/2024 12:55 PM Allyn Garcia, ARIES documented in this encounter Plan of Treatment Upcoming Encounters Date Type Department Care Team (Late st Contact Info) Description 06/30/2025 10:00 AM EDT Office Visit Cardiology [address] [place] [address] Isaías Kinney MD [address] [place] [address] DX: Chronic diastolic heart failure documented as of this encounter Goals Goal Patient Goal Type Associated Problems Recent Progress Patient-Stated? Author Blood Pressure < 130/80 Blood Pressure 134/63( 025 3:00 PM EDT) No Lidia Lo RN documented as of this encounter Visit Diagnoses Not on filedocumented in this encounter Care Teams Maori Liaison Adviser Relationship Specialty Start Date End Date Samm Serrano MD PCP - General Family Medicine 05/30/12 Tom Gonzalez [address] [place] [address] Primary Staff Physician Cardiology 12/02/18 Andreas Pierre MD [address] [place] [address] Primary Staff Physician Cardiology 04/26/23 Virgil Carrillo MD [address] [place], [place] [phone] Primary Staff Physician Cardiology 10/29/23 Jethro Mendoza MD [address] [place] [address] Primary Staff Physician Cardiology 12/26/23 Isaías Kinney MD [address] [place] [address] Primary Staff Physician Cardiology 01/10/24 documented as of this encounter
--- OUTSIDE RECORDS SUMMARY | 2025-03-04 15:22 | XMS_ITS | Encounter Summary ---
Author Organization [facility] [employer] s tem Address [id number] [address] [place] [address] Care Team Providers Care Insert Cutter Name Role Phone Samm Serrano MD Primary Care Provider [phone] Encounter Details Date Type Department Care Team (Late st Contact Info) Description 01/11/2025 Lab Requisition [facility] - Lab [address] [place] [phone] Samm Serrano MD [address] [place] [address] Hypokalemia; Chronic kidney disease, unspecified Social History Tobacco Use Types Packs/Day [...] often do you attend chur ch or zoroastrianism services? Never 08/17/2021 Do you belong to any clubs o r organizations such as jainism groups, unions, fraternal or athletic groups, or [...] Answer Date Recorded Total Score 0 08/17/2021 [facility] - [facility]ational Stress Questionnaire Answer Date Recorded [...] Diagnosis Comments CBC WITH AUTO DIFFERENTIAL Routine 01/11/2025 1:10 PM EDT Hypokalemia Chronic kidney disease, unspecified COMPREHENSIVE METABOLIC PANEL Routine 01/11/2025 1:10 PM EDT Hypokalemia Chronic kidney disease, unspecified documented in this encounter Results * (ABNORMAL) CBC auto differential (01/11/2025 1:10 PM EDT) WBC 5.2 4 - 11 x10E9/L 01/11/2025 2:39 PM EDT [facility] RBC Count 3.87(L) 4.1 - 5.7 X10E12/L 01/11/2025 2:39 PM EDT [facility] Hemoglobin 11.8(L) 13 - 17 g/dL 01/11/2025 2:39 PM EDT [facility] Hematocrit 36.0(L) 39 - 50 % 01/11/2025 2:39 PM EDT [facility] MCV 93 80 - 100 fL 01/11/2025 2:39 PM EDT [facility] MCH 30.6 27 - 34 pg 01/11/2025 2:39 PM EDT [facility] MCHC 32.9 32 - 36 g/dL 01/11/2025 2:39 PM EDT [facility] RDW 18.5(H) 11.5 - 15 % 01/11/2025 2:39 PM EDT [facility] Platelet Count 148(L) 150 - 450 X10E9/L 01/11/2025 2:39 PM EDT [facility] MPV 8.5 7 - 12 fL 01/11/2025 2:39 PM EDT [facility] Neutrophils Relative 60.7 % 01/11/2025 2:39 PM EDT [facility] Lymphocytes Relative 21.6 % 01/11/2025 2:39 PM EDT [facility] Monocytes Relative 10.7 % 01/11/2025 2:39 PM EDT [facility] Eosinophils Relative 6.5 % 01/11/2025 2:39 PM EDT [facility] Basophils Relative 0.5 % 01/11/2025 2:39 PM EDT [facility] Neutrophils Absolute (A) 3.1 10*3/uL 01/11/2025 2:39 PM EDT [facility] Lymphocytes Absolute 1.1 10*3/uL 01/11/2025 2:39 PM EDT [facility] Monocytes Absolute 0.6 10*3/uL 01/11/2025 2:39 PM EDT [facility] Eosinophils Absolute 0.3 10*3/uL 01/11/2025 2:39 PM EDT [facility] Basophils Absolute 0.0 10*3/uL 01/11/2025 2:39 PM EDT [facility] Differential Type AUTOMATED DIFFERENTIAL 01/11/2025 2:39 PM EDT [facility] Blood Venous blood / Unknown 01/11/2025 1:10 PM EDT 01/11/2025 2:31 PM EDT us Samm Serrano MD LAB BLOOD ORDERABLES Final Resu lt [facility] [address] [facility] [place] [address], * (ABNORMAL) Comprehensive metabolic panel (01/11/2025 1:10 PM EDT) SODIUM 136 134 - 146 mmol/L 01/11/2025 2:47 PM EDT [facility] POTASSIUM 4.1 3.5 - 5.0 mmol/L 01/11/2025 2:47 PM EDT [facility] CHLORIDE 103 98 - 109 mmol/L 01/11/2025 2:47 PM EDT [facility] CARBON DIOXIDE 26 22 - 32 mmol/L 01/11/2025 2:47 PM EDT [facility] ANION GAP 7 5 - 15 mmol/L 01/11/2025 2:47 PM EDT [facility] BLOOD UREA NITROGEN 49(H) 5 - 27 mg/dL 01/11/2025 2:47 PM EDT [facility] CREATININE 1.80(H) 0.70 - 1.20 mg/dL 01/11/2025 2:47 PM EDT [facility] Comment:METHOD TRACEABLE TO IDMS STANDARD GLUCOSE 80 65 - 99 mg/dL 01/11/2025 2:47 PM EDT [facility] CALCIUM 8.7 8.5 - 10.5 mg/dL 01/11/2025 2:47 PM EDT [facility] TOTAL PROTEIN 7.3 6.0 - 8.0 g/dL 01/11/2025 2:47 PM EDT [facility] ALBUMIN 3.4 3.2 - 5.3 g/dL 01/11/2025 2:47 PM EDT [facility] ALKALINE PHOSPHATASE 126 39 - 130 U/L 01/11/2025 2:47 PM EDT [facility] AST 21 <=41 U/L 01/11/2025 2:47 PM EDT [facility] ALT 13 <=40 U/L 01/11/2025 2:47 PM EDT [facility] BILIRUBIN,TOTAL 0.9 0.3 - 1.2 mg/dL 01/11/2025 2:47 PM EDT [facility] EGFR Non-Race Dependent 37(L) >=60 ml/min/1.7 3sq.m 01/11/2025 2:47 PM EDT [facility] Comment: eGFR not reported due to non-numeric value for Creatinine. Reported eGFR is based on the CKD-EPI 2020 equation that does not use a race coefficient. Blood Venous blood / Unknown 01/11/2025 1:10 PM EDT 01/11/2025 2:31 PM EDT us Samm Serrano MD LAB BLOOD ORDERABLES Final Resu lt [facility] [address] [facility] [place] [address], documented in this encounter Visit Diagnoses Diagnosis Hypokalemia Hypopotassemia Chronic kidney disease, unspecified documented in this encounter Additional Health Concerns Assessment Noted Time PHQ-9 Depression Total Score: 0 08/17/20 21 12:12 PM EST documented as of this encounter Care Teams Insert Cutter Relationship Specialty Start Date End Date Samm Serrano MD PCP - General Family Medicine 02/26/24 documented as of this encounter
--- OUTSIDE RECORDS SUMMARY | 2025-03-04 15:22 | XMS_ITS | Encounter Summary ---
Author Organization [facility] [employer] s [employer] Address [facility]-[id number] [address] [place] [address] Care Team Providers Care Solderer Dipper Name Role Phone Samm Serrano MD Primary Care Provider [phone] Encounter Details Date Type Department Care Team (Late st Contact Info) Description 02/01/2025 Lab Requisition [facility] - Lab [address] [place] [phone] Samm Serrano MD [address] [place] [address] 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 disease, or unspecified chronic kidney disease (CMS-HCC); Chronic systolic (congestive) heart failure ([facility]-HCC) Social History Tobacco Use Types Packs/Day Years [...] week 08/17/2021 How often do you attend up health system or adventist services? Never 08/17/2021 Do you belong to any clubs o r organizations such as worship groups, unions, fraternal or athletic groups, or [...] Answer Date Recorded Total Score 0 08/17/2021 [facility] - Occupational [...] Recorded Do you need help finding a [facility] and/or a training program? 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 disease, or unspecified chronic kidney disease (CMS-HCC) Chronic systolic (congestive) heart failure (CMS-HCC) documented in this encounter Results * (ABNORMAL) CBC auto differential (02/01/2025 1:38 PM EDT) WBC 4.7 4 - 11 x10E9/L 02/01/2025 2:21 PM EDT [facility] RBC Count 3.84(L) 4.1 - 5.7 X10E12/L 02/01/2025 2:21 PM EDT [facility] Hemoglobin 12.1(L) 13 - 17 g/dL 02/01/2025 2:21 PM EDT [facility] Hematocrit 35.9(L) 39 - 50 % 02/01/2025 2:21 PM EDT [facility] MCV 94 80 - 100 fL 02/01/2025 2:21 PM EDT [facility] MCH 31.4 27 - 34 pg 02/01/2025 2:21 PM EDT [facility] MCHC 33.6 32 - 36 g/dL 02/01/2025 2:21 PM EDT [facility] RDW 17.6(H) 11.5 - 15 % 02/01/2025 2:21 PM EDT [facility] Platelet Count 156 150 - 450 X10E9/L 02/01/2025 2:21 PM EDT [facility] MPV 8.3 7 - 12 fL 02/01/2025 2:21 PM EDT [facility] Neutrophils Relative 70.6 % 02/01/2025 2:21 PM EDT [facility] Lymphocytes Relative 12.2 % 02/01/2025 2:21 PM EDT [facility] Monocytes Relative 12.5 % 02/01/2025 2:21 PM EDT [facility] Eosinophils Relative 3.5 % 02/01/2025 2:21 PM EDT [facility] Basophils Relative 1.2 % 02/01/2025 2:21 PM EDT [facility] Neutrophils Absolute (A) 3.3 1.5 - 6.6 10*3/uL 02/01/2025 2:21 PM EDT [facility] Lymphocytes Absolute 0.6(L) 1.0 - 3.5 10*3/uL 02/01/2025 2:21 PM EDT [facility] Monocytes Absolute 0.6 0.0 - 0.9 10*3/uL 02/01/2025 2:21 PM EDT [facility] Eosinophils Absolute 0.2 0.0 - 0.4 10*3/uL 02/01/2025 2:21 PM EDT [facility] Basophils Absolute 0.1 0.0 - 0.2 10*3/uL 02/01/2025 2:21 PM EDT [facility] Differential Type AUTOMATED DIFFERENTIAL 02/01/2025 2:21 PM EDT [facility] Blood Venous blood / Unknown 02/01/2025 1:38 PM EDT 02/01/2025 2:16 PM EDT us Samm Serrano MD LAB BLOOD ORDERABLES Final Resu lt [facility] [address] [place] [address], * (ABNORMAL) Comprehensive metabolic panel (02/01/2025 1:38 PM EDT) SODIUM 134 134 - 146 mmol/L 02/01/2025 2:28 PM EDT [facility] POTASSIUM 4.1 3.5 - 5.0 mmol/L 02/01/2025 2:28 PM EDT [facility] CHLORIDE 103 98 - 109 mmol/L 02/01/2025 2:28 PM EDT [facility] CARBON DIOXIDE 21(L) 22 - 32 mmol/L 02/01/2025 2:28 PM EDT [facility] ANION GAP 10 5 - 15 mmol/L 02/01/2025 2:28 PM EDT [facility] BLOOD UREA NITROGEN 50(H) 5 - 27 mg/dL 02/01/2025 2:28 PM EDT [facility] CREATININE 2.47(H) 0.70 - 1.20 mg/dL 02/01/2025 2:28 PM EDT [facility] Comment:METHOD TRACEABLE TO IDMS STANDARD GLUCOSE 100(H) 65 - 99 mg/dL 02/01/2025 2:28 PM EDT [facility] CALCIUM 8.1(L) 8.5 - 10.5 mg/dL 02/01/2025 2:28 PM EDT [facility] TOTAL PROTEIN 7.0 6.0 - 8.0 g/dL 02/01/2025 2:28 PM EDT [facility] ALBUMIN 3.3 3.2 - 5.3 g/dL 02/01/2025 2:28 PM EDT [facility] ALKALINE PHOSPHATASE 103 39 - 130 U/L 02/01/2025 2:28 PM EDT [facility] AST 19 <=41 U/L 02/01/2025 2:28 PM EDT [facility] ALT 11 <=40 U/L 02/01/2025 2:28 PM EDT [facility] BILIRUBIN,TOTAL 1.3(H) 0.3 - 1.2 mg/dL 02/01/2025 2:28 PM EDT [facility] EGFR Non-Race Dependent 25(L) >=60 ml/min/1.7 3sq.m 02/01/2025 2:28 PM EDT [facility] Comment: eGFR not reported due to non-numeric value for Creatinine. Reported eGFR is based on the CKD-EPI 2020 equation that does not use a race coefficient. Blood Venous blood / Unknown 02/01/2025 1:38 PM EDT 02/01/2025 2:16 PM EDT us Samm Serrano MD LAB BLOOD ORDERABLES Final Resu lt [facility] [address] [place] [address] documented in this encounter Visit Diagnoses Diagnosis [...] documented as of this encounter Care Teams Solderer Dipper Relationship Specialty Start Date End Date Samm Serrano MD PCP - General Family Medicine 02/26/24 documented as of this encounter
--- OUTSIDE RECORDS SUMMARY | 2025-03-04 15:22 | XMS_ITS | Encounter Summary ---
Author Organization [facility] Address [address] [place] [address] Care Team Providers Care Substance Abuse Clinician Name Role Phone Samm Serrano MD Primary Care Provider +-4 Tom Gonzalez Unavailable [phone] Andreas Pierre MD Unavailable Virgil Carrillo MD Unavailable Jethro Mendoza MD Unavailable Isaías Kinney MD Unavailable [phone] Source Comments In the event this information is protected by the Federal Confidentiality of Alcohol and Drug AbusePatient Records regulations: The Federal rules restrict any use of the information to criminally investigate or prosecute any alcohol or drug abuse patient.[facility] Encounter Details Date Type Department Care Team (Late st Contact Info) Description 04/23/2024 Get Medical Advice Neurology [facility] [address] [place] [address] Jesusita Esparza, ADMINISTRATIVE DIETITIAN.SALESPERSON FLOWERS [address] [place] [address] Low Iron Test Results Social History Tobacco Use Types Packs/Day Years Used Date Smoking Tobacco: Former Cigarettes 1 10 0 04/28/1972 - 04/28/1982 Pipe Passive Smoke Exposure: Never Smokeless Tobacco: Never Alcohol Use Standard Drinks/Week Comments Yes 0 (1 standard drink = 0.6 oz pur e alcohol) rarely [facility] Utilities Answer Date Recorded In the past 12 months has th e electric, gas, oil, or water company threatened to shut off services in your home? No 03/02/2024 AUDIT-C Answer Date Recorded Q1: How often [...] the money to buy more. Never true 03/02/20 24 Within the past 12 months, t he food you bought just didn't last and you didn't have money to get more. Never true 03/02/2024 PRAPARE - Transportation Answer Date Re corded In the past 12 months, has l ack of transportation kept you from medical appointments or from getting medications? No 02/14 In the past 12 months, has l ack of transportation kept you from meetings, work, or from getting things needed for daily living? No 03/02/2024 Housing Stability Vital Sign Answer [...] place to sleep or slept in a mcc (including now)? No 03/02/2024 Area Deprivation Index Answer Date Rich rded National Score (1-100), lower number is lower ri sk 52 02/05/2024 State Score (1-10), lower number is lower risk 3 02/05/2024 Data from: https://www.neighborhoodatlas.medicine.[facility].edu/. Last address used for calculation [address] [place] [address] [address] 02/05/2024 Sex and Gender Information Value Date Recorded Sex Assigned at Male 02/22/2019 10:48 PM EDT Legal Sex Male 8:07 AM EST Gender Identity Male 02/22/2019 10:48 PM EDT Sexual Orientation Straight 02/22/2019 10 :48 PM EDT documented as of this encounter Functional Status * Are you deaf or do you have serious difficulty hearing? Answer Date of Assessment Author No 03/05/2024 1:56 PM EDT Ramila Ford RN * Are you blind or do you have serious difficulty seeing, even when wearing glasses? Answer Date of Assessment Author No 03/05/2024 1:56 PM EDT Ramila Ford RN * Do you have serious difficulty walking or climbing stairs? Answer Date of Assessment Author No 03/05/2024 1:56 PM EDT Ramila Ford RN * Do you have difficulty dressing or bathing? Answer Date of Assessment Author No 03/05/2024 1:56 PM EDT Ramila Ford RN * Because of a physical, mental, or emotional condition, do you have difficulty doing errands alone such as visiting a doctor's office or shopping? Answer Date of Assessment Author Yes 03/05/2024 1:56 PM EDT Ramila Ford RN documented as of this encounter Mental Status * Because of a physical, mental, or emotional condition, do you have serious difficulty concentrating, remembering, or making decisions? Answer Entry Date Author No 03/05/2024 1:56 PM EDT Ramila Ford RN documented in this encounter Plan of Treatment Upcoming Encounters Date Type Department Care Team (Late st Contact Info) Description 06/30/2025 10:00 AM EDT Office Visit Cardiology [address] [place] [address] Isaías Kinney MD [address] [id number] DX: Chronic diastolic heart failure documented as of this encounter Goals Goal Patient Goal Type Associated Problems Recent Progress Patient-Stated? Author Blood Pressure < 130/80 Blood Pressure 134/63( 025 3:00 PM EDT) Lidia Soto RN documented as of this encounter Visit Diagnoses Not on filedocumented in this encounter Care Teams Substance Abuse Clinician Relationship Specialty Start Date End Date Samm Serrano MD PCP - General Family Medicine 05/30/12 Tom Gonzalez [facility] [place] [address] Primary Staff Physician Cardiology 12/02/18 Andreas Pierre MD [address] [place] [address] Primary Staff Physician Cardiology 04/26/23 [place] [address] [place], [place] [id number] Primary Staff Physician Cardiology 10/29/23 Jethro Mendoza MD [address] [place] [address] Primary Staff Physician Cardiology 12/26/23 Isaías Kinney MD [address] [place] [address] Primary Staff Physician Cardiology 01/10/24 documented as of this encounter
--- OUTSIDE RECORDS SUMMARY | 2025-03-04 15:22 | XMS_ITS | Clinical Summary ---
Author Organization [facility] Address [address] [place] [address] Care Team Providers Care Plastic Outfitter Name Role Phone Unavailable Primary Care Provider Unavailabl e Social History Tobacco Use Types Packs/Day Years Used Date Smoking Tobacco: Never Assessed Sex and Gender Information Value Date Recorded Sex Assigned at Not on file Legal Sex Male 4:35 PM EST Gender Identity Not on file Sexual Orientation Not on file Plan of Treatment Health Maintenance Due Date Last Done Comments Depression Screen 1952 Pneumococcal 50+ years Vacci ne (1 of 1 - PCV) 02/20/1992 Shingles vaccine (1 of 2) 02/20/1992 Respiratory Syncytial Virus (RSV) or age 60 yrs+ (1 - 1-dose 75+ series) 2017 COVID-19 Vaccine ( - 2023-2 5 season) 2024 Flu vaccine (Season Ended) 2025 DTaP/Tdap/Td vaccine (2 - Tdap) 06/13/2030 0 Hepatitis A vaccine Aged Out No longe r eligible based on patient's age to complete this topic Hepatitis B vaccine Aged Out No longe r eligible based on patient's age to complete this topic Hib vaccine Aged Out No longer eligi ble based on patient's age to complete this topic Meningococcal (ACWY) vaccine Aged Out No longer eligible based on patient's age to complete this topic Meningococcal B vaccine Aged Out No l onger eligible based on patient's age to complete this topic Polio vaccine Aged Out No longer elig ible based on patient's age to complete this topic
--- OUTSIDE RECORDS SUMMARY | 2025-03-04 15:22 | XMS_ITS | Encounter Summary ---
Author Organization [facility] Address [address] [place] [address] Care Team Providers Care Farm Machine Tender Name Role Phone Samm Serrano MD Primary Care Provider +-4 Tom Gonzalez Unavailable [phone] Andreas Pierre MD Unavailable Virgil Carrillo MD Unavailable Jethro Mendoza MD Unavailable Isaías Kinney MD Unavailable [phone] Source Comments In the event this information is protected by the Federal Confidentiality of Alcohol and Drug AbusePatient Records regulations: The Federal rules restrict any use of the information to criminally investigate or prosecute any alcohol or drug abuse patient.[facility] Encounter Details Date Type Department Care Team (Late st Contact Info) Description 09/28/2024 Patient Msg Radiation Oncology [address] [place] [address] [place] [address] Yung Andrade MD [address] [place] [address] Appointment Cancellation Request Social History Tobacco Use Types Packs/Day Years Used Date Smoking Tobacco: Former Cigarettes 1 10 0 04/28/1972 - 04/28/1982 Pipe Passive Smoke Exposure: Never Smokeless Tobacco: Never Alcohol Use Standard Drinks/Week Comments Not Currently 0 (1 standard drink = 0.6 oz pur e alcohol) rarely [facility] Utilities Answer Date Recorded In the [...] or living in a intermediate (including now)? Yes 07/22/2024 Area Deprivation Index Answer Date Rich rded National Score (1-100), lower number is lower ri sk 52 02/05/2024 State Score (1-10), lower number is lower risk 3 02/05/2024 Data from: https://www.neighborhoodatlas.medicine.[facility].edu/. Last address used for calculation [address] [place] [address] [address] 02/05/2024 Sex and Gender Information [...] 10:00 AM EDT Office Visit Cardiology [address] [place] [address] Isaías Kinney MD [address] [place] [address] DX: Chronic diastolic heart failure documented as of this encounter Goals Goal Patient Goal Type Associated Problems Recent Progress Patient-Stated? Author Blood Pressure < 130/80 Blood Pressure 134/63( 025 3:00 PM EDT) No Lidia Lo RN documented as of this encounter Visit Diagnoses Not on filedocumented in this encounter Care Teams Farm Machine Tender Relationship Specialty Start Date End Date Samm Serrano MD PCP - General Family Medicine 05/30/12 Tom Gonzalez [address] [place] [address] Primary Staff Physician Cardiology 12/02/18 Andreas Pierre MD [address] [place] [address] Primary Staff Physician Cardiology 04/26/23 Virgil Carrillo MD [address] [place], [place] [phone] Primary Staff Physician Cardiology 10/29/23 Jethro Mendoza MD [address] [place] [address] Primary Staff Physician Cardiology 12/26/23 Isaías Kinney MD [address] [place] [address] Primary Staff Physician Cardiology 01/10/24 documented as of this encounter
--- OUTSIDE RECORDS SUMMARY | 2025-03-04 15:22 | XMS_ITS | Encounter Summary ---
Author Organization [facility] [employer] s tem Address [id number] [address] [place] [address] Care Team Providers Care Sales Demonstrator Name Role Phone Samm Serrano MD Primary Care Provider [phone] Encounter Details Date Type Department Care Team (Late st Contact Info) Description 02/22/2025 Lab Requisition [facility] - Lab [address] [place] [id number] Samm Serrano MD [address] [place] [address] 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 disease, or unspecified chronic kidney disease (CMS-HCC); Chronic systolic (congestive) heart failure ([facility]-HCC) Social History Tobacco Use Types Packs/Day [...] week 08/17/2021 How often do you attend [facility] or orthodox services? Never 08/17/2021 Do you belong to any clubs o r organizations such as mormonism groups, unions, fraternal or athletic groups, or [...] Recorded Do you need help finding a [facility] and/or a training program? 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 disease, or unspecified chronic kidney disease (CMS-HCC) Chronic systolic (congestive) heart failure (CMS-HCC) BASIC METABOLIC PANEL Routine 02/22/2025 1:50 PM EDT 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 disease, or unspecified chronic kidney disease (CMS-HCC) Chronic systolic (congestive) heart failure (CMS-HCC) documented in this encounter Results * (ABNORMAL) CBC auto differential (02/22/2025 1:50 PM EDT) WBC 3.8(L) 4 - 11 x10E9/L 02/22/2025 2:43 PM EDT [facility] RBC Count 3.63(L) 4.1 - 5.7 X10E12/L 02/22/2025 2:43 PM EDT [facility] Hemoglobin 11.3(L) 13 - 17 g/dL 02/22/2025 2:43 PM EDT [facility] Hematocrit 34.6(L) 39 - 50 % 02/22/2025 2:43 PM EDT [facility] MCV 95 80 - 100 fL 02/22/2025 2:43 PM EDT [facility] MCH 31.2 27 - 34 pg 02/22/2025 2:43 PM EDT [facility] MCHC 32.7 32 - 36 g/dL 02/22/2025 2:43 PM EDT [facility] RDW 17.7(H) 11.5 - 15 % 02/22/2025 2:43 PM EDT [facility] Platelet Count 139(L) 150 - 450 X10E9/L 02/22/2025 2:43 PM EDT [facility] MPV 8.4 7 - 12 fL 02/22/2025 2:43 PM EDT [facility] Neutrophils Relative 69.7 % 02/22/2025 2:43 PM EDT [facility] Lymphocytes Relative 10.4 % 02/22/2025 2:43 PM EDT [facility] Monocytes Relative 11.7 % 02/22/2025 2:43 PM EDT [facility] Eosinophils Relative 7.5 % 02/22/2025 2:43 PM EDT [facility] Basophils Relative 0.7 % 02/22/2025 2:43 PM EDT [facility] Neutrophils Absolute (A) 2.6 1.5 - 6.6 10*3/uL 02/22/2025 2:43 PM EDT [facility] Lymphocytes Absolute 0.4(L) 1.0 - 3.5 10*3/uL 02/22/2025 2:43 PM EDT [facility] Monocytes Absolute 0.4 0.0 - 0.9 10*3/uL 02/22/2025 2:43 PM EDT [facility] Eosinophils Absolute 0.3 0.0 - 0.4 10*3/uL 02/22/2025 2:43 PM EDT [facility] Basophils Absolute 0.0 0.0 - 0.2 10*3/uL 02/22/2025 2:43 PM EDT [facility] Differential Type AUTOMATED DIFFERENTIAL 02/22/2025 2:43 PM EDT [facility] Blood Venous blood / Unknown 02/22/2025 1:50 PM EDT 02/22/2025 2:25 PM EDT us Samm Serrano MD LAB BLOOD ORDERABLES Final Resu lt [facility] [address] [facility] [place] [address], * (ABNORMAL) Basic Metabolic Panel (02/22/2025 1:50 PM EDT) SODIUM 136 134 - 146 mmol/L 02/22/2025 3:14 PM EDT [facility] POTASSIUM 3.2(L) 3.5 - 5.0 mmol/L 02/22/2025 3:14 PM EDT [facility] CHLORIDE 101 98 - 109 mmol/L 02/22/2025 3:14 PM EDT [facility] CARBON DIOXIDE 23 22 - 32 mmol/L 02/22/2025 3:14 PM EDT [facility] ANION GAP 12 5 - 15 mmol/L 02/22/2025 3:14 PM EDT [facility] BLOOD UREA NITROGEN 47(H) 5 - 27 mg/dL 02/22/2025 3:14 PM EDT [facility] CREATININE 2.32(H) 0.70 - 1.20 mg/dL 02/22/2025 3:14 PM EDT [facility] Comment:METHOD TRACEABLE TO IDMS STANDARD GLUCOSE 154(H) 65 - 99 mg/dL 02/22/2025 3:14 PM EDT [facility] CALCIUM 8.5 8.5 - 10.5 mg/dL 02/22/2025 3:14 PM EDT [facility] EGFR Non-Race Dependent 27(L) >=60 ml/min/1.7 3sq.m 02/22/2025 3:14 PM EDT [facility] Comment: eGFR not reported due to non-numeric value for Creatinine. Reported eGFR is based on the CKD-EPI 2020 equation that does not use a race coefficient. Blood Venous blood / Unknown 02/22/2025 1:50 PM EDT 02/22/2025 2:25 PM EDT us Samm Serrano MD LAB BLOOD ORDERABLES Final Resu lt [facility] [address] documented in this encounter Visit Diagnoses [...] documented as of this encounter Care Teams Sales Demonstrator Relationship Specialty Start Date End Date Samm Serrano MD PCP - General Family Medicine 02/26/24 documented as of this encounter
--- OUTSIDE RECORDS SUMMARY | 2025-03-04 15:22 | XMS_ITS ---
Author Organization [facility] Address [id number] [address] 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 Both and patient are where the most contact customer order clerk prior to taking the medication. Viagra 1/2 tab may go up to full tab if no effect after 3 different times Prostate cancer 07/17/2019 Overview (07/26/2021): ==== 07/26/2021 ==== ##### bone scan is [...] not to proceed. ==== 07/17/2019 ==== [facility] [place] Grade: 3+ 4 equal 7 # of cores Positive: 2 Laterality: Right Patient's PSA is: Approximately 13 Prostate Volume is: 20.7 cc PSA density is: Approximately 0.6 Clinical stage is: Clinical T1c NCCN clinical risk group is: Favorable intermediate risk [facility] Nomogram probability for Lymph Node Metastasis: 2% Location: bilateral Severity: moderate Quality: NCCN guidelines unfavorable intermediate risk Based on social security life tables patient is predicted life expectancy is: 10 yrs Baseline urinary function is: good Baseline sexual function is: cannot sustain erection Comorbidities: cardiac---[place], Has AICD ==== 07/17/2019 ==== patient follow-up outside urologist as well as outside radiation oncologist. 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 PSA has fluctuate anywhere from 5 to approximately 13. Most recent PSA that I have of record is 12.3 in October 2014. Subsequent biopsy December 2018 2 course Ivory 3 + 4 equal 7. Right side. [...] or not. Reconvene and then discuss further. Assessment & Plan (07/26/2021 4:38 PM EST): I talked regarding various scenarios with patient [...] Referral to be made -per patient choice [place] [facility]. Assessment & Plan (06/28/2021 1:59 PM EDT): Given the psa number and possible change in TAJ will need metastatic survey and and if negative then biopsy to get up to date tissue. Plan: He is due for prostate biopsy. Cannot have MRI. Will however obtain CT scan bone scan look for Mets. If negative then return to clinic in then set him up for prostate biopsy Assessment & Plan (09/28/2019 1:19 PM EST): Would be best for the patient have a PSA as that would really help solidify whether not he is in the favorable are unfavorable intermediate risk category. Again is volume of positive prostate carcinoma is not high in his great is not changed really over time. We did discuss potentially obtaining more tissue with biopsy as this could help potentially allow further genetic testing. This point patient for most content with obtain a PSA return to clinic and then further discussion. Patient also states that on several separate occasions when he has followed a conscientious diet his PSA has dropped when he is off on the diet and eats as he describes as poorly his PSA did rise. He currently is eating poorly. Current Treatment and Therapy Plans No current plan information found. Past Treatment and Therapy Plans No past plan information found. Lifetime Dose Tracking * Chemical Lifetime Dose Automatic Entry Manual Entr y Fluoroscopy 696 mGy 0 mGy 696 mGy
--- OUTSIDE RECORDS SUMMARY | 2025-03-04 15:22 | XMS_ITS | Encounter Summary ---
Author Organization [facility] Address [address] [place] [address] Care Team Providers Care Head Boys Tennis Coach Name Role Phone Samm Serrano MD Primary Care Provider +-4 Tom Gonzalez Unavailable [phone] Andreas Pierre MD Unavailable Virgil Carrillo MD Unavailable Jethro Mendoza MD Unavailable Isaías Kinney MD Unavailable [phone] Source Comments In the event this information is protected by the Federal Confidentiality of Alcohol and Drug AbusePatient Records regulations: The Federal rules restrict any use of the information to criminally investigate or prosecute any alcohol or drug abuse patient.[facility] Encounter Details Date Type Department Care Team (Latest Contact Info) Description 03/02/2025 Travel Social History Tobacco Use Types Packs/Day Years Used Date Smoking Tobacco: Former Cigarettes 1 10 0 04/28/1972 - 04/28/1982 Pipe Passive Smoke Exposure: Never Smokeless Tobacco: Never Alcohol Use Standard Drinks/Week Comments Not Currently 0 (1 standard drink = 0.6 oz pur e alcohol) rarely [facility] Utilities Answer Date Recorded In the past [...] time in the past 12 m [facility], were you homeless or living in a half-way (including now)? Yes 07/22/2024 Area Deprivation Index Answer Date Rich rded National Score (1-100), lower number is lower ri sk 52 02/05/2024 State Score (1-10), lower number is lower risk 3 02/05/2024 Data from: https://www.neighborhoodatlas.medicine.[facility]/. Last address used for calculation [address] [place] [address] [address] 02/05/2024 Sex and Gender Information [...] 06/30/2025 10:00 AM EDT Office Visit Cardiology [address] [place] [address] Isaías Kinney MD [address] [place] [address] DX: Chronic diastolic heart failure documented as of this encounter Goals Goal Patient Goal Type Associated Problems Recent Progress Patient-Stated? Author Blood Pressure < 130/80 Blood Pressure 134/63( 025 3:00 PM EDT) Lidia Soto, ARIES documented as of this encounter Visit Diagnoses Not on filedocumented in this encounter Care Teams Head Boys Tennis Coach Relationship Specialty Start Date End Date Samm Serrano MD PCP - General Family Medicine 05/30/12 Tom Gonzalez [address] [place] [address] Primary Staff Physician Cardiology 12/02/18 [place] [address] [place] [address] Primary Staff Physician Cardiology 04/26/23 Virgil Carrillo MD [address] [place] [id number] Primary Staff Physician Cardiology 10/29/23 [place] [address] [place] [address] Primary Staff Physician Cardiology 12/26/23 Isaías Kinney MD [address] [place] [address] Primary Staff Physician Cardiology 01/10/24 documented as of this encounter
--- OUTSIDE RECORDS SUMMARY | 2025-03-04 15:22 | XMS_ITS | Encounter Summary ---
Author [facility] Address [id number] [address] [place] [address] Care Team Providers Care Water Quality Tester Name Role Phone Samm Serrano MD Primary Care Provider [phone] Reason for Visit * Reason Onset Date Comments Med Refill 01/31/2022 Encounter Details Date Type Department Care Team (Late st Contact Info) Description 01/31/2022 Refill [facility] [address] [place] [address] Albertina Infante RMA Cerebrovascular accident (CVA) due to embolism of right middle cerebral artery (CMS-HCC); Typical atrial flutter (CMS-HCC) Social History Tobacco Use Types Packs/Day Years [...] often do you attend chur ch or orthodoxy services? Never 08/17/2021 Do you belong to any clubs o r organizations such as spiritism groups, unions, fraternal or athletic groups, or [...] Answer Date Recorded Total Score 0 08/17/2021 [facility] - Occupational [...] center and/or a training program? No 08/17/2021 Purpose - Life Answer Date Recorded I have a purpose and direction in my life. Stron gly Agree 08/17/2021 Sex and Gender Information Value Date Recorded Sex Assigned at Not on file Legal Sex Male 8:42 PM EDT Gender Identity Not on file Sexual Orientation Not on file documented as of this encounter Miscellaneous Notes * Telephone Encounter - RAJNI Vu - 01/31/2022 4:53 PM EDT Received [facility] el[facility] * Telephone Encounter - [place] Rene PA-C - 01/31/2022 4:53 PM EDT I would recommend obtain refills from his band saw operator * Telephone Encounter - RAJNI Vu - 01/31/2022 4:53 PM EDT Pharmacy notified. documented in this encounter Plan of Treatment Not on file documented as of this encounter Goals Goal Patient Goal Type Associated Problems Recent Progress Patient-Stated? Author <enter goal here> General Yes Opal Condon, ARIES Note: Evaluation of progress towards goal: To return home safely with spouse and attend outpatient therapy. documented as of this encounter Visit Diagnoses Diagnosis Cerebrovascular accident (CVA) due to embolism of right middle cerebral artery (CMS-HCC) Typical atrial flutter (CMS-HCC) documented in this encounter Additional Health Concerns Assessment Noted Time PHQ-9 Depression Total Score: 0 08/17/20 21 12:12 PM EST documented as of this encounter Care Teams Water Quality Tester Relationship Specialty Start Date End Date Samm Serrano MD PCP - General Family Medicine 02/26/24 documented as of this encounter
--- OUTSIDE RECORDS SUMMARY | 2025-03-04 15:22 | XMS_ITS | Clinical Summary ---
Author Organization [employer] Address [id number] [address] [place] [address] Care Team Providers Care Community Development Planner Name Role Phone Samm Serrano MD Primary Care Provider [phone] Allergies Active Allergy Reactions Criticality Noted Date Comments Latex 07/17/2019 Medications metoprolol succinate XL (TOPROL-XL) 25 mg 24 hr tablet Take 1 tablet (25 mg total) by mouth in the morning. Active thyroid, pork, (ARMOUR THYROID) 90 mg tablet Take 90 mg by mouth daily. Active cholecalciferol, vitamin D3, (VITAMIN D3) 1,000 unit capsule Take 1,000 Units by mouth daily. Active coenzyme Q10 30 mg capsule Take 1 capsule (30 mg total) by mouth in the morning. Active aspirin 325 mg EC tablet Take 81 mg by mouth daily. Patient reports no longer taking. Active atorvastatin (LIPITOR) 40 mg tablet daily. 9 Active torsemide (DEMADEX) 10 mg tablet Take 10 mg by mouth daily as needed. 9 Active sildenafiL (VIAGRA) 100 mg tablet 20 mg one daily PRN 30 tablet 2 1 Active lisinopriL (PRINIVIL,ZESTRI L) 5 mg tablet Take 5 mg by mouth daily. 1 Active zinc gluconate 50 mg tablet Take 50 mg by mouth daily. Active pbmonuo-bxhw-jfj kp-rmtc-gdcyag 100 mg-150 mg- 50 mg-150 mg capsule Take 1 capsule by mouth daily. 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 60 tablet 6 Active ascorbic acid, vitamin C, (VITAMIN C) 250 mg tablet Take 250 mg by mouth daily. Unsure of strength Active dapagliflozin propanediol (FARXIGA) 10 mg tablet Take 1 tablet (10 mg total) by mouth in the morning. Active ezetimibe (ZETIA) 10 mg tablet Take 1 tablet (10 mg total) by mouth in the morning. Active furosemide (LASIX) 40 mg tablet Take 1 tablet (40 mg total) by mouth daily. Active rivaroxaban (XARELTO) 15 mg tablet Take 1 tablet (15 mg total) by mouth nightly. Active thyroid, pork, (TIGER MACHINE OPERATOR THYROID) 60 mg tablet Take 1.25 tablets (75 mg total) by mouth in the morning. Active Active Problems Problem Noted Date Diagnosed [...] get clearance to take Viagra through his patcher helper. Both and patient are where the most contact patcher helper prior to taking the medication. Viagra 1/2 [...] sexual function is: cannot sustain erection Comorbidities: cardiac---AK, Has AICD ==== 07/17/2019 ==== patient follow-up outside urologist as well as outside radiation oncologist. 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 PSA has fluctuate anywhere from 5 to approximately 13. Most recent PSA that I have of record is 12.3 in October 2014. Subsequent biopsy December 2018 2 course [place] 3 + 4 equal 7. Right side. [...] Referral to be made -per patient choice [facility]. Assessment & Plan (06/28/2021 1:59 [...] did rise. He currently is eating poorly. Encounters Date Type Department Care Team Description 02/22/2025 Lab Requisition [facility] - Lab [address] [place] [address] Samm Serrano MD 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 disease, or unspecified chronic kidney disease (CMS-HCC); Chronic systolic (congestive) heart failure ([facility]-HCC) 02/09/2025 Lab Requisition [facility] - Lab [address] [place] [address] Samm Serrano MD Acute kidney failure, unspecified; 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 disease, or unspecified chronic kidney disease (CMS-HCC); Chronic systolic (congestive) heart failure (CMS-HCC) 02/01/2025 Lab Requisition [facility] - Lab [address] [place] [address] Samm Serrano MD 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 disease, or unspecified chronic kidney disease ([facility]-HCC); Chronic systolic (congestive) heart failure ([facility]-HCC) 01/25/2025 Lab Requisition [facility] - Lab [address] [place] [address] Samm Serrano MD 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 disease, or unspecified chronic kidney disease (CMS-HCC); Chronic systolic (congestive) heart failure ([facility]-HCC) 01/18/2025 Lab Requisition [facility] - Lab [address] [place] [id number] Samm Serrano MD Hyperkalemia; 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 disease, or unspecified chronic kidney disease (CMS-HCC); Chronic systolic (congestive) heart failure (CMS-HCC); 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 [address] Samm Serrano MD Hypokalemia; Chronic kidney disease, unspecified from Last 3 Months Immunizations Immunization Administration Dates Next Due DTP 06/13/2020 Family History Medical History Relation Name Comments Heart disease Father Hypertension Father Thyroid disease Mother Relation Name Status Comments Father Mother Social History Tobacco Use Types Packs/Day Years [...] 08/17/2021 How often do you attend chur or confucianism services? Never 08/17/2021 Do you belong to any clubs o r organizations such as evangelical groups, unions, fraternal or athletic groups, or [...] Answer Date Recorded Total Score 0 08/17/2021 [facility] [place] [facility] Occupat ional Health - Occupational Stress [...] Recorded Do you need help finding a [employer] [facility] career center and/or a training program? No [...] Sign Reading Time Taken Comments Blood Pressure 106/70 03/01/2024 8:25 PM EDT Pulse 69 03/01/2024 8:55 PM EDT Temperature 36.5 C (97.7 F) 02/28/2024 9:51 AM EDT Respiratory Rate 21 03/01/2024 8:55 PM EDT Oxygen Saturation 96% 03/01/2024 8:55 PM EDT Inhaled Oxygen Concentration - - Weight 81.6 kg (180 lb) 02/26/2024 11:25 PM EDT Height 182.9 cm (6') 02/26/2024 11:25 PM EDT Body Mass Index 24.41 02/26/2024 11:25 PM EDT Plan of Treatment Health Maintenance Due Date Last Done Comments Depression Screening 1952 Tobacco Screening 1952 Zoster (Shingles) Vaccine (1 of 2) 1961 Fall Risk Screening 2007 Influenza Vaccine 05/17/2025 DTaP,Tdap and Td Vaccines (2 - Tdap) 06/13/203005/18 Goals Goal Patient Goal Type Associated Problems Recent Progress Patient-Stated? Author <enter goal here> General Yes Opal Condon, RN Note: Evaluation of progress towards goal: To return home safely with spouse and attend outpatient therapy. Medical Devices Not on file Procedures Procedure Name Priority [...] (CMS-HCC) Chronic systolic (congestive) heart failure (CMS-HCC) CBC WITH AUTO DIFFERENTIAL Routine 02/09/2025 3:27 [...] (CMS-HCC) Chronic systolic (congestive) heart failure (CMS-HCC) CBC WITH AUTO DIFFERENTIAL Routine 02/01/2025 1:38 [...] (CMS-HCC) Chronic systolic (congestive) heart failure (CMS-HCC) CBC WITH AUTO DIFFERENTIAL Routine 01/25/2025 11:40 [...] (CMS-HCC) Chronic systolic (congestive) heart failure (CMS-HCC) LIPID PROFILE Routine 01/18/2025 12:19 PM EDT Hyperkalemia 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 disease, or unspecified chronic kidney disease (CMS-HCC) Chronic systolic (congestive) heart failure (CMS-HCC) 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) Hypothyroidism, unspecified Gout, unspecified VITAMIN D 25 HYDROXY Routine 01/18/2025 12:19 PM EDT Hyperkalemia 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 disease, or unspecified chronic kidney disease (CMS-HCC) Chronic systolic (congestive) heart failure (CMS-HCC) 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) Hypothyroidism, unspecified Gout, unspecified COMPREHENSIVE METABOLIC PANEL Routine 01/18/2025 12:19 PM EDT Hyperkalemia 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 disease, or unspecified chronic kidney disease (CMS-HCC) Chronic systolic (congestive) heart failure (CMS-HCC) 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) Hypothyroidism, unspecified Gout, unspecified URIC ACID Routine 01/18/2025 12:19 PM EDT Hyperkalemia 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 disease, or unspecified chronic kidney disease (CMS-HCC) Chronic systolic (congestive) heart failure (CMS-HCC) 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) Hypothyroidism, unspecified Gout, unspecified THYROID PROFILE INCLUDES TSH FT4 Routine 01/18/2025 12:19 PM EDT Hyperkalemia 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 disease, or unspecified chronic kidney disease (CMS-HCC) Chronic systolic (congestive) heart failure (CMS-HCC) 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) Hypothyroidism, unspecified Gout, unspecified T3, FREE Routine 01/18/2025 12:19 PM EDT Hyperkalemia 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 disease, or unspecified chronic kidney disease (CMS-HCC) Chronic systolic (congestive) heart failure (CMS-HCC) 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[facility]-HCC) Hypothyroidism, unspecified Gout, unspecified MAGNESIUM Routine 01/18/2025 12:19 PM EDT Hyperkalemia 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 disease, or unspecified chronic kidney disease (CMS-HCC) Chronic systolic (congestive) heart failure (CMS-HCC) 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) Hypothyroidism, unspecified Gout, unspecified B-TYPE NATRIURETIC PEPTIDE Routine 01/18/2025 12:19 PM EDT Hyperkalemia 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 disease, or unspecified chronic kidney disease (CMS-HCC) Chronic systolic (congestive) heart failure (CMS-HCC) 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[facility]) Hypothyroidism, unspecified Gout, unspecified CBC WITH AUTO DIFFERENTIAL Routine 01/11/2025 1:10 PM EDT Hypokalemia Chronic kidney disease, unspecified COMPREHENSIVE METABOLIC PANEL Routine 01/11/2025 1:10 PM EDT Hypokalemia Chronic kidney disease, unspecified from Last 3 Months Results * (ABNORMAL) CBC auto differential (02/22/2025 1:50 PM EDT) Only the most recent of5 resultswithin the time period is included. WBC 3.8(L) 4 - 11 x10E9/L 02/22/2025 2:43 PM EDT [facility] RBC Count 3.63(L) 4.1 - 5.7 X10E12/L 02/22/2025 2:43 PM EDT [facility] Hemoglobin 11.3(L) 13 - 17 g/dL 02/22/2025 2:43 PM EDT [facility] Hematocrit 34.6(L) 39 - 50 % 02/22/2025 2:43 PM EDT [facility] MCV 95 80 - 100 fL 02/22/2025 2:43 PM EDT [facility] MCH 31.2 27 - 34 pg 02/22/2025 2:43 PM EDT [facility] MCHC 32.7 32 - 36 g/dL 02/22/2025 2:43 PM EDT [facility] RDW 17.7(H) 11.5 - 15 % 02/22/2025 2:43 PM EDT [facility] Platelet Count 139(L) 150 - 450 X10E9/L 02/22/2025 2:43 PM EDT [facility] MPV 8.4 7 - 12 fL 02/22/2025 2:43 PM EDT [facility] Neutrophils Relative 69.7 % 02/22/2025 2:43 PM EDT [facility] Lymphocytes Relative 10.4 % 02/22/2025 2:43 PM EDT [facility] Monocytes Relative 11.7 % 02/22/2025 2:43 PM EDT [facility] Eosinophils Relative 7.5 % 02/22/2025 2:43 PM EDT [facility] Basophils Relative 0.7 % 02/22/2025 2:43 PM EDT [facility] Neutrophils Absolute (A) 2.6 1.5 - 6.6 10*3/uL 02/22/2025 2:43 PM EDT [facility] Lymphocytes Absolute 0.4(L) 1.0 - 3.5 10*3/uL 02/22/2025 2:43 PM EDT [facility] Monocytes Absolute 0.4 0.0 - 0.9 10*3/uL 02/22/2025 2:43 PM EDT [facility] Eosinophils Absolute 0.3 0.0 - 0.4 10*3/uL 02/22/2025 2:43 PM EDT [facility] Basophils Absolute 0.0 0.0 - 0.2 10*3/uL 02/22/2025 2:43 PM EDT [facility] Differential Type AUTOMATED DIFFERENTIAL 02/22/2025 2:43 PM EDT [facility] Blood Venous blood / Unknown 02/22/2025 1:50 PM EDT 02/22/2025 2:25 PM EDT us Samm Serrano MD LAB BLOOD ORDERABLES Final Resu lt [facility] [address] [place] [address], [place] * (ABNORMAL) Basic Metabolic Panel (02/22/2025 1:50 PM EDT) SODIUM 136 134 - 146 mmol/L 02/22/2025 3:14 PM EDT [facility] POTASSIUM 3.2(L) 3.5 - 5.0 mmol/L 02/22/2025 3:14 PM EDT [facility] CHLORIDE 101 98 - 109 mmol/L 02/22/2025 3:14 PM EDT [facility] CARBON DIOXIDE 23 22 - 32 mmol/L 02/22/2025 3:14 PM EDT [facility] ANION GAP 12 5 - 15 mmol/L 02/22/2025 3:14 PM EDT [facility] BLOOD UREA NITROGEN 47(H) 5 - 27 mg/dL 02/22/2025 3:14 PM EDT [facility] CREATININE 2.32(H) 0.70 - 1.20 mg/dL 02/22/2025 3:14 PM EDT [facility] Comment:METHOD TRACEABLE TO IDMS STANDARD GLUCOSE 154(H) 65 - 99 mg/dL 02/22/2025 3:14 PM EDT [facility] CALCIUM 8.5 8.5 - 10.5 mg/dL 02/22/2025 3:14 PM EDT [facility] EGFR Non-Race Dependent 27(L) >=60 ml/min/1.7 3sq.m 02/22/2025 3:14 PM EDT [facility] Comment: eGFR not reported due to non-numeric value for Creatinine. Reported eGFR is based on the CKD-EPI 2020 equation that does not use a race coefficient. Blood Venous blood / Unknown 02/22/2025 1:50 PM EDT 02/22/2025 2:25 PM EDT us Samm Serrano MD LAB BLOOD ORDERABLES Final Resu lt [facility] [address] [place] [address], * (ABNORMAL) Comprehensive metabolic panel (02/09/2025 3:27 PM EDT) Only the most recent of5 resultswithin the time period is included. SODIUM 133(L) 134 - 146 mmol/L 02/09/2025 4:45 PM EDT [facility] POTASSIUM 3.8 3.5 - 5.0 mmol/L 02/09/2025 4:45 PM EDT [facility] CHLORIDE 102 98 - 109 mmol/L 02/09/2025 4:45 PM EDT [facility] CARBON DIOXIDE 27 22 - 32 mmol/L 02/09/2025 4:45 PM EDT [facility] ANION GAP 4(L) 5 - 15 mmol/L 02/09/2025 4:45 PM EDT [facility] BLOOD UREA NITROGEN 49(H) 5 - 27 mg/dL 02/09/2025 4:45 PM EDT [facility] CREATININE 2.18(H) 0.70 - 1.20 mg/dL 02/09/2025 4:45 PM EDT [facility] Comment:METHOD TRACEABLE TO IDMS STANDARD GLUCOSE 88 65 - 99 mg/dL 02/09/2025 4:45 PM EDT [facility] CALCIUM 8.6 8.5 - 10.5 mg/dL 02/09/2025 4:45 PM EDT [facility] TOTAL PROTEIN 6.8 6.0 - 8.0 g/dL 02/09/2025 4:45 PM EDT [facility] ALBUMIN 3.3 3.2 - 5.3 g/dL 02/09/2025 4:45 PM EDT [facility] ALKALINE PHOSPHATASE 117 39 - 130 U/L 02/09/2025 4:45 PM EDT [facility] AST 20 <=41 U/L 02/09/2025 4:45 PM EDT [facility] ALT 11 <=40 U/L 02/09/2025 4:45 PM EDT [facility] BILIRUBIN,TOTAL 1.1 0.3 - 1.2 mg/dL 02/09/2025 4:45 PM EDT [facility] EGFR Non-Race Dependent 29(L) >=60 ml/min/1.7 3sq.m 02/09/2025 4:45 PM EDT [facility] Comment: eGFR not reported due to non-numeric value for Creatinine. Reported eGFR is based on the CKD-EPI 2020 equation that does not use a race coefficient. Blood Venous blood / Unknown 02/09/2025 3:27 PM EDT 02/09/2025 4:19 PM EDT Samm Serrano MD LAB BLOOD ORDERABLES Final Resu lt Performing Organization Address City/[facility]/ZIP Co de Phone Number [address] [place] [address], [place] * (ABNORMAL) Thyroid profile includes TSH FT4 (01/18/2025 12:19 PM EDT) FREE T4 1.29 0.61 - 1.60 ng/dL 01/18/2025 2:51 PM EDT [facility] TSH 8.64(H) 0.49 - 4.67 uIU/mL 01/18/2025 2:51 PM EDT [facility] Blood Venous blood / Unknown Venipuncture / Unknown 01/18/2025 12:19 PM EDT 01/18/2025 1:34 PM EDT us Samm Serrano MD LAB BLOOD ORDERABLES Final Resu lt Performing Organization Address City/[facility]/ZIP Co de Phone Number [address] [place] [address], [place] * Vitamin D 25 hydroxy (01/18/2025 12:19 PM EDT) VITAMIN D 25 HYD TOT 41.6 30.0 - 100.0 ng/mL 01/19/2025 7:06 PM EDT [facility] Blood Venous blood / Unknown Venipuncture / Unknown 01/18/2025 12:19 PM EDT 01/18/2025 1:34 PM EDT Narrative [facility] - 01/19/2025 7:06 PM EDT Vitamin D status 25 [place] Vitamin D Deficiency <20 ng/mL Insufficiency 20-29 ng/mL Sufficiency 30-100 ng/mL Toxicity >100 ng/mL NOTE: A pediatric reference range has not been established by the mechanical unit repairer of this kit. The [place] [employer] recommends a Vitamin D level of = or >20ng/mL in infants and children. Samm Serrano MD LAB BLOOD ORDERABLES Final Resu lt [facility] [address] [place] [address], * (ABNORMAL) Uric acid (01/18/2025 12:19 PM EDT) URIC ACID 11.4(H) 2.6 - 7.2 mg/dL 01/18/2025 2:51 PM EDT [facility] Blood Venous blood / Unknown Venipuncture / Unknown 01/18/2025 12:19 PM EDT 01/18/2025 1:34 PM EDT Samm Serrano MD LAB BLOOD ORDERABLES Final Resu lt [facility] [address] [place] [address], [place] * (ABNORMAL) T3, free (01/18/2025 12:19 PM EDT) FREE T3 2.15(L) 2.50 - 3.90 pg/mL 01/19/2025 6:53 PM EDT [facility] Blood Venous blood / Unknown Venipuncture / Unknown 01/18/2025 12:19 PM EDT 01/18/2025 1:34 PM EDT Samm Serrano MD LAB BLOOD ORDERABLES Final Resu lt [facility] [address] [place] [address], [place] [phone] * (ABNORMAL) B-type natriuretic peptide (01/18/2025 12:19 PM EDT) BNP 2,720(H) <=100 pg/mL 01/18/2025 2:51 PM EDT [facility] Blood Venous blood / Unknown Venipuncture / Unknown 01/18/2025 12:19 PM EDT 01/18/2025 1:34 PM EDT Samm Serrano MD LAB BLOOD ORDERABLES Final Resu lt Performing Organization Address City/[facility]/ZIP Co de Phone Number [address] [place] [address], [place] * Magnesium (01/18/2025 12:19 PM EDT) MAGNESIUM 2.6 1.8 - 2.6 mg/dL 01/18/2025 2:51 PM EDT [facility] Blood Venous blood / Unknown Venipuncture / Unknown 01/18/2025 12:19 PM EDT 01/18/2025 1:34 PM EDT Samm Serrano MD LAB BLOOD ORDERABLES Final Resu lt Performing Organization Address City/[facility]/ZIP Co de Phone Number [address] [place] [address], [place] * (ABNORMAL) Lipid profile (01/18/2025 12:19 PM EDT) CHOLESTEROL 144(L) 150 - 200 mg/dL 01/19/2025 6:47 PM EDT [facility] TRIGLYCERIDE 51 27 - 150 mg/dL 01/19/2025 6:47 PM EDT [facility] HDL CHOLESTEROL 46 >39 mg/dL 6:47 PM EDT [facility] Comment: HDL <40 mg/dL - High Risk HDL > or = 40mg/dL- Desirable HDL >60 mg/dL - Negative Risk LDL (CALC) 88 <130 mg/dL 01/19/2025 6:47 PM EDT [facility] Comment: LDL <100 mg/dL - Desirable LDL >160 mg/dL - High Risk CHOLESTEROL:HDL 3.1 1.0 - 5.0 6:47 PM EDT [facility] VERY LOW LIPOPROTEIN 10 0 - 30 mg/dL 01/19/2025 6:47 PM EDT [facility] Blood Venous blood / Unknown Venipuncture / Unknown 01/18/2025 12:19 PM EDT 01/18/2025 1:34 PM EDT us Samm Serrano MD LAB BLOOD ORDERABLES Final Resu lt [facility] [address] [place] [address], from Last [address] [place] [address] [employer] [facility] [place] Advance Directives * Full Code (Latest Code Status on File) Date Activated Date Inactivated Comments 08/18/2021 11:48 AM 08/19/2021 7:30 PM Care Teams Community Development Planner Relationship Specialty Start Date End Date Samm Serrano MD PCP - General Family Medicine 02/26/24
--- OUTSIDE RECORDS SUMMARY | 2025-03-04 15:22 | XMS_ITS | Encounter Summary ---
Author Organization [facility] Address [address] [place] [address] Care Team Providers Care Hydraulic Billet Maker Name Role Phone Samm Serrano MD Primary Care Provider [phone] Tom Gonzalez Unavailable [phone] Andreas Pierre MD Unavailable Virgil Carrillo MD Unavailable Jethro Mendoza MD Unavailable Isaías Kinney MD Unavailable [phone] Source Comments In the event this information is protected by the Federal Confidentiality of Alcohol and Drug AbusePatient Records regulations: The Federal rules restrict any use of the information to criminally investigate or prosecute any alcohol or drug abuse patient.[facility] Encounter Details Date Type Department Care Team (Late st Contact Info) Description 05/18/2021 Get Medical Advice Cardiology [address] [place], [place] [phone] Andreas Pierre MD [address] [place] [address] RE: Upcoming Appointment Question Social History Tobacco Use Types Packs/Day [...] N ot on file 08/21/2020 Data from: [email or web address] Last address used for calculation Not [...] 10:00 AM EDT Office Visit Cardiology [address] [place] [address] Isaías Kinney MD [address] [place] [address] DX: Chronic diastolic heart failure documented as of this encounter Visit Diagnoses Not on filedocumented in this encounter Care Teams Hydraulic Billet Maker Relationship Specialty Start Date End Date Samm Serrano MD PCP - General Family Medicine 05/30/12 Tom Gonzalez [address] [place] [address] Primary Staff Physician Cardiology 12/02/18 Andreas Pierre MD [facility] [place] [address] Primary Staff Physician Cardiology 04/26/23 Virgil Carrillo MD [address] [place], [place] [id number] Primary Staff Physician Cardiology 10/29/23 Jethro Mendoza MD [facility] [place] [address] Primary Staff Physician Cardiology 12/26/23 Isaías Kinney MD [address] [address] Primary Staff Physician Cardiology 01/10/24 documented as of this encounter
--- OUTSIDE RECORDS SUMMARY | 2025-03-04 15:22 | XMS_ITS | Encounter Summary ---
Author Organization [facility] Address [address] [place] [address] Care Team Providers Care Duplex Trimmer Name Role Phone Samm Serrano MD Primary Care Provider +-4 Tom Gonzalez Unavailable [phone] Andreas Pierre MD Unavailable Virgil Carrillo MD Unavailable Jethro Mendoza MD Unavailable Isaías Kinney MD Unavailable [phone] Source Comments In the event this information is protected by the Federal Confidentiality of Alcohol and Drug AbusePatient Records regulations: The Federal rules restrict any use of the information to criminally investigate or prosecute any alcohol or drug abuse patient.[facility] Encounter Details Date Type Department Care Team (Late st Contact Info) Description 04/22/2024 Get Medical Advice Cardiology [address] [place], [place] [phone] Isaías Kinney MD [address] [place] [address] [place] Social History Tobacco Use Types Packs/Day Years Used Date Smoking Tobacco: Former Cigarettes 1 10 0 04/28/1972 - 04/28/1982 Pipe Passive Smoke Exposure: Never Smokeless Tobacco: Never Alcohol Use Standard Drinks/Week Comments Yes 0 (1 standard drink = 0.6 oz pur e alcohol) rarely [facility] Utilities Answer Date Recorded In [...] in a mcfp (including now)? No 03/02/2024 Area Deprivation Index Answer Date Rich rded National Score (1-100), lower number is lower ri sk 52 02/05/2024 State Score (1-10), lower number is lower risk 3 02/05/2024 Data from: https://www.neighborhoodatlas.medicine.[facility]/. Last address used for calculation [address] [place] [address] [address] 02/05/2024 Sex and Gender Information [...] 10:00 AM EDT Office Visit Cardiology [address] [place] [address] Isaías Kinney MD [address] [place] [address] DX: Chronic diastolic heart failure documented as of this encounter Goals Goal Patient Goal Type Associated Problems Recent Progress Patient-Stated? Author Blood Pressure < 130/80 Blood Pressure 134/63( 025 3:00 PM EDT) Lidia Soto, ARIES documented as of this encounter Visit Diagnoses Not on filedocumented in this encounter Care Teams Duplex Trimmer Relationship Specialty Start Date End Date Samm Serrano MD PCP - General Family Medicine 05/30/12 Tom Gonzalez [address] [place] [address] Primary Staff Physician Cardiology 12/02/18 Andreas Pierre MD [address] [place] [id number] Primary Staff Physician Cardiology 04/26/23 Virgil Carrillo MD [address] [place] [id number] Primary Staff Physician Cardiology 10/29/23 Jethro Mendoza MD [address] [place] [address] Primary Staff Physician Cardiology 12/26/23 Isaías Kinney MD [address] [place] [address] Primary Staff Physician Cardiology 01/10/24 documented as of this encounter
--- OUTSIDE RECORDS SUMMARY | 2025-03-04 15:23 | XMS_ITS | Encounter Summary ---
Author Organization [facility] Address [address] [place] [address] Care Team Providers Care Editor Producer Name Role Phone Samm Serrano MD Primary Care Provider +-4 Tom Gonzalez Unavailable [phone] Andreas Pierre MD Unavailable Virgil Carrillo MD Unavailable Jethro Mendoza MD Unavailable Isaías Kinney MD Unavailable [phone] Source Comments In the event this information is protected by the Federal Confidentiality of Alcohol and Drug AbusePatient Records regulations: The Federal rules restrict any use of the information to criminally investigate or prosecute any alcohol or drug abuse patient.[facility] Reason for Visit * Reason Comments Follow Up Encounter Details Date Type Department Care Team (Late st Contact Info) Description 12/10/2024 Telephone Cardiology [address] [place] [address] Isíaas Kinney MD [address] [place] [address] Follow Up Social History Tobacco Use Types Packs/Day Years Used Date Smoking Tobacco: Former Cigarettes 1 10 0 04/28/1972 - 04/28/1982 Pipe Passive Smoke Exposure: Never Smokeless Tobacco: Never Alcohol Use Standard Drinks/Week Comments Not Currently 0 (1 standard drink = 0.6 oz pur e alcohol) rarely [facility] Utilities Answer Date Recorded In the [...] place to sleep or slept in a long-term (including now)? No 03/02/2024 Housing Stability Vital [...] were you homeless or living in a long-term (including now)? Yes 07/22/2024 Area Deprivation Index Answer Date Rich rded National Score (1-100), lower number is lower ri sk 52 02/05/2024 State Score (1-10), lower number is lower risk 3 02/05/2024 Data from: https://www.neighborhoodatlas.medicine.[facility].edu/. Last address used for calculation [address] [place] [address] [address] 02/05/2024 Sex and Gender Information [...] Allyn Garcia RN documented in this encounter Miscellaneous Notes * Telephone Encounter - Isaías Kinney MD - 12/15/2024 9:57 AM EDT Conveyed echo results via [employer] [facility]. Can add on virtual on administrative day in late December please. Micaela Kinney MD MSc * Telephone Encounter - Lindsay Ross - 12/10/2024 1:08 PM EDT Patient had EKG and echo this past Saturday. Please call with results to daughter Charu [phone]. Thank you, Lindsay documented in this encounter Plan of Treatment Upcoming Encounters Date Type Department Care Team (Late st Contact Info) Description 06/30/2025 10:00 AM EDT Office Visit Cardiology [address] [place] [address] Isaías Kinney MD [address] [place] [address] DX: Chronic diastolic heart failure documented as of this encounter Goals Goal Patient Goal Type Associated Problems Recent Progress Patient-Stated? Author Blood Pressure < 130/80 Blood Pressure 134/63( 025 3:00 PM EDT) No Lidia Lo RN documented as of this encounter Visit Diagnoses Not on filedocumented in this encounter Care Teams Editor Producer Relationship Specialty Start Date End Date Samm Serrano MD PCP - General Family Medicine 05/30/12 Tom Gonzalez [address] [place] [address] Primary Staff Physician Cardiology 12/02/18 Andreas Pierre MD [address] [place] [address] Primary Staff Physician Cardiology 04/26/23 Virgil Carrillo MD [address] [place] [address] Primary Staff Physician Cardiology 10/29/23 Jethro Mendoza MD [address] [place] [address] Primary Staff Physician Cardiology 12/26/23 Isaías Kinney MD [address] [place] [address] Primary Staff Physician Cardiology 01/10/24 documented as of this encounter
--- OUTSIDE RECORDS SUMMARY | 2025-03-04 15:23 | XMS_ITS | Encounter Summary ---
Author Organization [facility] Address [address] [place] [address] Care Team Providers Care Lead Project Manager Name Role Phone Samm Serrano MD Primary Care Provider +-4 Tom Gonzalez Unavailable [phone] Andreas Pierre MD Unavailable Virgil Carrillo MD Unavailable Jethro Mendoza MD Unavailable Isaías Kinney MD Unavailable [phone] Source Comments In the event this information is protected by the Federal Confidentiality of Alcohol and Drug AbusePatient Records regulations: The Federal rules restrict any use of the information to criminally investigate or prosecute any alcohol or drug abuse patient.[facility] Encounter Details Date Type Department Care Team (Late st Contact Info) Description 01/21/2025 Get Medical Advice Cardiology [address] [place], [place] [phone] Isaías Kinney MD [address] [place] [address] Thyroid labs and medication Social History Tobacco Use Types Packs/Day Years Used Date Smoking Tobacco: Former Cigarettes 1 10 0 04/28/1972 - 04/28/1982 Pipe Passive Smoke Exposure: Never Smokeless Tobacco: Never Alcohol Use Standard Drinks/Week Comments Not Currently 0 (1 standard drink = 0.6 oz pur e alcohol) rarely [facility] Utilities Answer Date Recorded In the past 12 months has th e [employer], gas, oil, or water [employer] threatened to shut off services in your [...] time in the past [address] [facility], were you homeless or living in a intermediate (including now)? Yes 07/22/2024 Area Deprivation Index Answer Date Rich rded National Score (1-100), lower number is lower ri sk 52 02/05/2024 State Score (1-10), lower number is lower risk 3 02/05/2024 Data from: https://www.neighborhoodatlas.[facility].edu/. Last address used for calculation [address] [place] [address] [address] 02/05/2024 Sex and Gender Information [...] 10:00 AM EDT Office Visit Cardiology [address] [place] [address] Isaías Kinney MD [address] [place], [place] [phone] DX: Chronic diastolic heart failure documented as of this encounter Goals Goal Patient Goal Type Associated Problems Recent Progress Patient-Stated? Author Blood Pressure < 130/80 Blood Pressure 134/63( 025 3:00 PM EDT) Lidia Soto RN documented as of this encounter Visit Diagnoses Not on filedocumented in this encounter Care Teams Lead Project Manager Relationship Specialty Start Date End Date Samm Serrano MD PCP - General Family Medicine 05/30/12 Tom Gonzalez [address] [place] [address] Primary Staff Physician Cardiology 12/02/18 Andreas Pierre MD [address] [place] [address] Primary Staff Physician Cardiology 04/26/23 Virgil Carrillo MD [address] [place], [place] [phone] Primary Staff Physician Cardiology 10/29/23 Jethro Mendoza MD [address] [place] [address] Primary Staff Physician Cardiology 12/26/23 Isaías Kinney MD [address] [place] [address] Primary Staff Physician Cardiology 01/10/24 documented as of this encounter
--- OUTSIDE RECORDS SUMMARY | 2025-03-04 15:23 | XMS_ITS | Encounter Summary ---
Author Organization [facility] Address [address] [place] [address] Care Team Providers Care Licensed Physical Therapist Assistant Name Role Phone Samm Serrano MD Primary Care Provider +-4 Tom Gonzalez Unavailable [phone] Andreas Pierre MD Unavailable Virgil Carrillo MD Unavailable Jethro Mendoza MD Unavailable Isaías Kinney MD Unavailable [phone] Source Comments In the event this information is protected by the Federal Confidentiality of Alcohol and Drug AbusePatient Records regulations: The Federal rules restrict any use of the information to criminally investigate or prosecute any alcohol or drug abuse patient.[facility] Encounter Details Date Type Department Care Team (Late st Contact Info) Description 11/01/2023 Get Medical Advice Cardiology [address] [place], [place] [phone] Virgil Carrillo MD [address] [place] [address] additional lab results (RP-Wcg-V-Type Natriuretic Peptide) Social History Tobacco Use Types Packs/Day Years [...] lower risk 3 04/02/2023 Data from: https://www.neigh borhoodatlas.medicine.[facility].edu/. Last address used for calculation [address] [...] Author No 03/25/2019 11:00 AM Jia Carlson (Hist)ARIES * Are you blind or do you have serious difficulty seeing, even when wearing glasses? Answer Date of Assessment Author No 03/25/2019 11:00 AM Jia Carlson (Radha) RN * Do you have serious difficulty walking or climbing stairs? Answer Date of Assessment Author No 03/25/2019 11:00 AM Jia Carlson (Radha) RN * Do you have difficulty dressing or bathing? Answer Date of Assessment Author No 03/25/2019 11:00 AM EDT Jia Rios RN (Hist) * Because of a physical, mental, or [...] 10:00 AM EDT Office Visit Cardiology [address] [place] [address] Isaías Kinney MD [address] [place] [address] DX: Chronic diastolic heart failure documented as of this encounter Visit Diagnoses Not on filedocumented in this encounter Care Teams Licensed Physical Therapist Assistant Relationship Specialty Start Date End Date Samm Serrano MD PCP - General Family Medicine 05/30/12 Tom Gonzalez [address] [place] [address] Primary Staff Physician Cardiology 12/02/18 Andreas Pierre MD [address] [place] [address] Primary Staff Physician Cardiology 04/26/23 Virgil Carrillo MD [address] [place] [phone] Primary Staff Physician Cardiology 10/29/23 Jethro Mendoza MD [address] [place] [address] Primary Staff Physician Cardiology 12/26/23 Isaías Kinney MD [address] [place] [address] Primary Staff Physician Cardiology 01/10/24 documented as of this encounter
--- OUTSIDE RECORDS SUMMARY | 2025-03-04 15:23 | XMS_ITS | Encounter Summary ---
Author Organization [facility] Address [id number] [place] [address] Care Team Providers Care Casino Cage Manager Name Role Phone Samm Serrano MD Primary Care Provider [phone] Encounter Details Date Type Department Care Team (Late st Contact Info) Description 01/14/2024 Telephone [facility] - Cardiac Rehab [address] [place] [id number] Sheila Finney RN Social History Tobacco Use [...] often do you attend chur ch or yarsanism services? Never 08/17/2021 Do you belong to any clubs o r organizations such as amish groups, unions, fraternal or athletic groups, or [...] Answer Date Recorded Total Score 0 08/17/2021 [facility] of Occupat ional Health - Occupational Stress [...] purpose and direction in my life. Elder gly Agree 08/17/2021 Sex and Gender Information [...] documented as of this encounter Care Teams Casino Cage Manager Relationship Specialty Start Date End Date Samm Serrano MD PCP - General Family Medicine 02/26/24 documented as of this encounter
--- OUTSIDE RECORDS SUMMARY | 2025-03-04 15:23 | XMS_ITS | Encounter Summary ---
Author Organization [facility] Address [address] [place] [address] Care Team Providers Care Rotary Saw Operator Name Role Phone Samm Serrano MD Primary Care Provider +-4 Tom Gonzalez Unavailable [phone] Andreas Pierre MD Unavailable Virgil Carrillo MD Unavailable Jethro Mendoza MD Unavailable Isaías Kinney MD Unavailable [phone] Source Comments In the event this information is protected by the Federal Confidentiality of Alcohol and Drug AbusePatient Records regulations: The Federal rules restrict any use of the information to criminally investigate or prosecute any alcohol or drug abuse patient.[facility] Encounter Details Date Type Department Care Team (Late st Contact Info) Description 11/01/2023 Get Medical Advice Cardiology [address] [place], [place] [phone] Virgil Carrillo MD [address] [place] [address] Lab results from 24 Social History Tobacco Use Types Packs/Day Years [...] lower risk 3 04/02/2023 Data from: https://www.neigh borhoodatlas.[facility].edu/. Last address used for calculation [address] 04/02/2023 Sex and Gender Information Value [...] Assessment Author No 03/25/2019 11:00 AM Jia Carlson), RN * Do you have difficulty dressing [...] 10:00 AM EDT Office Visit Cardiology [address] [place] [address] Isaías Kinney MD [address] [place] [address] DX: Chronic diastolic heart failure documented as of this encounter Visit Diagnoses Not on filedocumented in this encounter Care Teams Rotary Saw Operator Relationship Specialty Start Date End Date Samm Serrano MD PCP - General Family Medicine 05/30/12 Tom Gonzalez [address] [place] [address] Primary Staff Physician Cardiology 12/02/18 Andreas Pierre MD [address] [place] [address] Primary Staff Physician Cardiology 04/26/23 Virgil Carrillo MD [address] [place] [phone] Primary Staff Physician Cardiology 10/29/23 Jethro Mendoza MD [address] [place] [address] Primary Staff Physician Cardiology 12/26/23 Isaías Kinney MD [address] [place] [address] Primary Staff Physician Cardiology 01/10/24 documented as of this encounter
--- OUTSIDE RECORDS SUMMARY | 2025-03-04 15:23 | XMS_ITS | Encounter Summary ---
Author Organization [facility] Address [address] [place] [address] Care Team Providers Care Counselor Aide Name Role Phone Samm Serrano MD Primary Care Provider +-4 Tom Gonzalez Unavailable [phone] Andreas Pierre MD Unavailable Virgil Carrillo MD Unavailable Jethro Mendoza MD Unavailable Isaías Kinney MD Unavailable [phone] Source Comments In the event this information is protected by the Federal Confidentiality of Alcohol and Drug AbusePatient Records regulations: The Federal rules restrict any use of the information to criminally investigate or prosecute any alcohol or drug abuse patient.[facility] Reason for Visit * Reason Comments Schedule Surgery EPS-DCC Encounter Details Date Type Department Care Team (Late st Contact Info) Description 03/02/2025 Telephone Cardiology [address] [place] [address] Nj Wei MD [address] [place] [address] Schedule Surgery ([facility]) Social History Tobacco Use Types Packs/Day Years Used Date Smoking Tobacco: Former Cigarettes 1 10 0 04/28/1972 - 04/28/1982 Pipe Passive Smoke Exposure: Never Smokeless Tobacco: Never Alcohol Use Standard Drinks/Week Comments Not Currently 0 (1 standard drink = 0.6 oz pur e alcohol) rarely [facility] Utilities Answer Date Recorded In [...] any time in the past 12 m [facility], were you homeless or living in a nursing home (including now)? Yes 07/22/2024 Area Deprivation Index Answer Date Rich rded National Score (1-100), lower number is lower ri sk 52 02/05/2024 State Score (1-10), lower number is lower risk 3 02/05/2024 Data from: https://www.neighborhoodatlas.medicine.[facility].edu/. Last address used for calculation [address] [facility] [address] 02/05/2024 Sex and Gender Information [...] Entry Date Author No 09/25/2024 12:55 PM EST Allyn Tuttle RN documented in this encounter Miscellaneous Notes * Telephone Encounter - Alison Tam RN - 03/02/2025 12:40 PM EDT Called and spoke to the patient's daughter to schedule DCC on 03/03/[address] Wei.Provided time and instructions to the daughter. Alison Tam RN * Telephone Encounter - Alison Tam RN - 03/02/2025 12:39 PM EDT ----- Message from Ema Gallardo RN sent at 03/01/2025 3:53 PM EDT ----- Regarding: DCC Please schedule patient for DCC. Timeframe: Saturday morning Date of last H&P: 03/01 Three weeks uninterrupted anticoagulation: Yes MERRITT needed: No Special instructions: patient to have remote check tomorrow to see if he is still in AF Ema Rankin RN March 01, 2025 3:53 PM documented in this encounter Plan of Treatment Upcoming Encounters Date Type Department Care Team (Late st Contact Info) Description 06/30/2025 10:00 AM EDT Office Visit Cardiology [address] [place] [id number] Isaías Kinney MD [address] [place] [address] DX: Chronic diastolic heart failure documented as of this encounter Goals Goal Patient Goal Type Associated Problems Recent Progress Patient-Stated? Author Blood Pressure < 130/80 Blood Pressure 134/63( 025 3:00 PM EDT) No Lidia Lo RN documented as of this encounter Visit Diagnoses Not on filedocumented in this encounter Care Teams Counselor Aide Relationship Specialty Start Date End Date Samm Serrano MD PCP - General Family Medicine 05/30/12 Tom Gonzalez [address] [place] [address] Primary Staff Physician Cardiology 12/02/18 Andreas Pierre MD [address] [place] [address] Primary Staff Physician Cardiology 04/26/23 Virgil Carrillo MD [address] [place] [address] Primary Staff Physician Cardiology 10/29/23 Jethro Mendoza MD [address] [facility] [address] Primary Staff Physician Cardiology 12/26/23 Isaías Kinney MD [address] [place] [address] Primary Staff Physician Cardiology 01/10/24 documented as of this encounter
--- OUTSIDE RECORDS SUMMARY | 2025-03-04 15:23 | XMS_ITS | Encounter Summary ---
Author Organization [facility] Address [address] [place] [address] Care Team Providers Care Children'S Ministries Director Name Role Phone Samm Serrano MD Primary Care Provider +-4 Tom Gonzalez Unavailable [phone] Andreas Pierre MD Unavailable Virgil Carrillo MD Unavailable Jethro Mendoza MD Unavailable Isaías Kinney MD Unavailable [phone] Source Comments In the event this information is protected by the Federal Confidentiality of Alcohol and Drug AbusePatient Records regulations: The Federal rules restrict any use of the information to criminally investigate or prosecute any alcohol or drug abuse patient.[facility] Reason for Visit * Reason Comments Outside Labs-[facility] Ordered Outside labs lamont baca 02/22/25 from [facility], scanned into [employer] for review Encounter Details Date Type Department Care Team (Late st Contact Info) Description 02/23/2025 Telephone Cardiology [address] [place] [address] Isaías Kinney MD [address] [place] [address] Outside Labs-[facility] Ordered (Outside labs dated 02/22/25 from [facility] Rubin, scanned into [employer] for review) Social History Tobacco Use Types Packs/Day Years Used Date Smoking Tobacco: Former Cigarettes 1 10 0 04/28/1972 - 04/28/1982 Pipe Passive Smoke Exposure: Never Smokeless Tobacco: Never Alcohol Use Standard Drinks/Week Comments Not Currently 0 (1 standard drink = 0.6 oz pur e alcohol) rarely [facility] Utilities Answer Date Recorded In [...] https://www.neighborhoodatlas.medicine.[facility].edu/. Last address used for calculation [address] [place] [address] [address] 02/05/2024 Sex and Gender Information [...] encounter Miscellaneous Notes * Telephone Encounter - Mary Bourgeois RN - 02/23/2025 4:15 PM EDT Images from the original note were not included. Isaías Kinney MD Schroll, Shirley; Hvi J3-4 Opd [id number] minutes ago (3:43 PM) Please call Mr. Antonio and ask him how much potassium supplementation he is taking. His potassium has returned at 3.2 and will likely need to double whatever he is taking. Thanks Micaela Kinney MD MSc Called and spoke with the patient. Relayed message from above. Patient verbalized understanding. Mary Bourgeois RN February 23, 2025 4:18 PM * Telephone Encounter - Neeta Moreno - 02/23/2025 2:32 PM EDT .Outside labs dated 02/22/25 from [facility], scanned into [employer] for review documented in this encounter Plan of Treatment Upcoming Encounters Date Type Department Care Team (Late st Contact Info) Description 06/30/2025 10:00 AM EDT Office Visit Cardiology [address] [place] [address] Isaías Kinney MD [address] [place] [phone] DX: Chronic diastolic heart failure documented as of this encounter Goals Goal Patient Goal Type Associated Problems Recent Progress Patient-Stated? Author Blood Pressure < 130/80 Blood Pressure 134/63( 025 3:00 PM EDT) No Lidia Lo RN documented as of this encounter Visit Diagnoses Not on filedocumented in this encounter Care Teams Children'S Ministries Director Relationship Specialty Start Date End Date Samm Serrano MD PCP - General Family Medicine 05/30/12 Tom Gonzalez [address] [place] [address] Primary Staff Physician Cardiology 12/02/18 Andreas Pierre MD [address] [place] [phone] Primary Staff Physician Cardiology 04/26/23 Virgil Carrillo MD [address] [place] [phone] Primary Staff Physician Cardiology 10/29/23 Jethro Mendoza MD [facility] [place] [address] Primary Staff Physician Cardiology 12/26/23 Isaías Kinney MD [facility] [place] [address] Primary Staff Physician Cardiology 01/10/24 documented as of this encounter
--- OUTSIDE RECORDS SUMMARY | 2025-03-04 15:23 | XMS_ITS | Encounter Summary ---
Author Organization [facility] Address [address] [place] [address] Care Team Providers Care Pmo Business Analyst Name Role Phone Samm Serrano MD Primary Care Provider +-4 Tom Gonzalez Unavailable [phone] Andreas Pierre MD Unavailable Virgil Carrillo MD Unavailable Jethro Mendoza MD Unavailable Isaías Kinney MD Unavailable [phone] Source Comments In the event this information is protected by the Federal Confidentiality of Alcohol and Drug AbusePatient Records regulations: The Federal rules restrict any use of the information to criminally investigate or prosecute any alcohol or drug abuse patient.[facility] Encounter Details Date Type Department Care Team (Latest Contact Info) Description 03/01/2025 Travel Social History Tobacco Use Types Packs/Day Years Used Date Smoking Tobacco: Former Cigarettes 1 10 0 04/28/1972 - 04/28/1982 Pipe Passive Smoke Exposure: Never Smokeless Tobacco: Never Alcohol Use Standard Drinks/Week Comments Not Currently 0 (1 standard drink = 0.6 oz pur e alcohol) rarely [facility] Utilities Answer Date Recorded In [...] any time in the past 12 m [facility], were you homeless or living in a correction (including now)? Yes 07/22/2024 Area Deprivation Index Answer Date Rich rded National Score (1-100), lower number is lower ri sk 52 02/05/2024 State Score (1-10), lower number is lower risk 3 02/05/2024 Data from: https://www.neighborhoodatlas.medicine.[facility]/. Last address used for calculation [address] [place] [address] [address] 02/05/2024 Sex and Gender Information [...] 06/30/2025 10:00 AM EDT Office Visit Cardiology [address] [place] [address] Isaías Kinney MD [address] [place] [address] DX: Chronic diastolic heart failure documented as of this encounter Goals Goal Patient Goal Type Associated Problems Recent Progress Patient-Stated? Author Blood Pressure < 130/80 Blood Pressure 134/63( 025 3:00 PM EDT) Lidia Soto, ARIES documented as of this encounter Visit Diagnoses Not on filedocumented in this encounter Care Teams Pmo Business Analyst Relationship Specialty Start Date End Date Samm Serrano MD PCP - General Family Medicine 05/30/12 Tom Gonzalez [address] [place] [address] Primary Staff Physician Cardiology 12/02/18 [place] [address] [place] [address] Primary Staff Physician Cardiology 04/26/23 Virgil Carrillo MD [address] [place] [phone] Primary Staff Physician Cardiology 10/29/23 [place] [address] [place] [address] Primary Staff Physician Cardiology 12/26/23 Isaías Kinney MD [address] [place] [address] Primary Staff Physician Cardiology 01/10/24 documented as of this encounter
--- OUTSIDE RECORDS SUMMARY | 2025-03-04 15:23 | XMS_ITS | Encounter Summary ---
Author Organization [facility] Address [address] [place] [address] Care Team Providers Care Dehorner Name Role Phone Samm Serrano MD Primary Care Provider +-4 Tom Gonzalez Unavailable [phone] Andreas Pierre MD Unavailable Virgil Carrillo MD Unavailable Jethro Mendoza MD Unavailable Isaías Kinney MD Unavailable [phone] Source Comments In the event this information is protected by the Federal Confidentiality of Alcohol and Drug AbusePatient Records regulations: The Federal rules restrict any use of the information to criminally investigate or prosecute any alcohol or drug abuse patient.[facility] Encounter Details Date Type Department Care Team (Late st Contact Info) Description 10/21/2024 Patient [facility] [place] [place] [address] Provider, [facility] Reminder: Review your MyChart Caregiver(s) Social History Tobacco Use Types Packs/Day Years Used Date Smoking Tobacco: Former Cigarettes 1 10 0 04/28/1972 - 04/28/1982 Pipe Passive Smoke Exposure: Never Smokeless Tobacco: Never Alcohol Use Standard Drinks/Week Comments Not Currently 0 (1 standard drink = 0.6 oz pur e alcohol) rarely [facility] Utilities Answer Date Recorded In the past 12 months has th e [employer], gas, oil, or water [employer] threatened to shut off services in your [...] is lower risk 3 02/05/2024 Data from: https://www.neighborhoodatlas.[facility].edu/. Last address used for calculation [address] 02/05/2024 Sex and Gender [...] 10:00 AM EDT Office Visit Cardiology [address] [place] [address] Isaías Kinney MD [address] [place], [place] [phone] DX: Chronic diastolic heart failure documented as of this encounter Goals Goal Patient Goal Type Associated Problems Recent Progress Patient-Stated? Author Blood Pressure < 130/80 Blood Pressure 134/63( 025 3:00 PM EDT) Lidia Soto, ARIES documented as of this encounter Visit Diagnoses Not on filedocumented in this encounter Care Teams Dehorner Relationship Specialty Start Date End Date Samm Serrano MD PCP - General Family Medicine 05/30/12 Tom Gonzalez [address] [place] [address] Primary Staff Physician Cardiology 12/02/18 Andreas Pierre MD [address] [place] [address] [phone] Primary Staff Physician Cardiology 04/26/23 Virgil Carrillo MD [address] [place] [address] [phone] Primary Staff Physician Cardiology 10/29/23 [place] [address] [place] [address] Primary Staff Physician Cardiology 12/26/23 Isaías Kinney MD [address] [place] [address] Primary Staff Physician Cardiology 01/10/24 documented as of this encounter
--- OUTSIDE RECORDS SUMMARY | 2025-03-04 15:23 | XMS_ITS | Encounter Summary ---
Author Organization [facility] Address [address] [place] [address] Care Team Providers Care Business Management Intern Name Role Phone Samm Serrano MD Primary Care Provider +-4 Tom Gonzalez Unavailable [phone] Andreas Pierre MD Unavailable Virgil Carrillo MD Unavailable Jethro Mendoza MD Unavailable Isaías Kinney MD Unavailable [phone] Source Comments In the event this information is protected by the Federal Confidentiality of Alcohol and Drug AbusePatient Records regulations: The Federal rules restrict any use of the information to criminally investigate or prosecute any alcohol or drug abuse patient.[facility] Encounter Details Date Type Department Care Team (Late st Contact Info) Description 03/02/2025 Orders Only Pseudo C[place] [id number] Nj Wei MD [address] [place], [place] [address] [address] Social History Tobacco Use Types Packs/Day Years Used Date Smoking Tobacco: Former Cigarettes 1 10 0 04/28/1972 - 04/28/1982 Pipe Passive Smoke Exposure: Never Smokeless Tobacco: Never Alcohol Use Standard Drinks/Week Comments Not Currently 0 (1 standard drink = 0.6 oz pur e alcohol) rarely [facility] Utilities Answer Date Recorded In the past 12 months has th e [employer], gas, oil, or water [employer] threatened to shut off services in your [...] risk 3 02/05/2024 Data from: https://www.neighborhoodatlas.medicine.[facility]/. Last address used for calculation [address] 02/05/2024 Sex and [...] 10:00 AM EDT Office Visit Cardiology [address] [place] [phone] Isaías Kinney MD [address] [place] [address] DX: Chronic diastolic heart failure documented as of this encounter Goals Goal Patient Goal Type Associated Problems Recent Progress Patient-Stated? Author Blood Pressure < 130/80 Blood Pressure 134/63( 025 3:00 PM EDT) No Lidia Lo RN documented as of this encounter Procedures Procedure Name Priority Date/Time Associated Diagnosis Comments CARDIAC IMPLANTABLE DEVICE CHECK REMOTE Routine 03/02/2025 4:01 AM EDT documented in this encounter Results * CARDIAC IMPLANTABLE DEVICE CHECK REMOTE (03/02/2025 4:01 AM EDT) Date Time Interrogation Session [id number] MURJ CARDIAC Type Interrogation Session Remote MURJ CARDIAC Implantable Pulse Generator Operator Specialist [employer] MURJ CARDIAC Implantable Pulse Generator Type Defibrillator MURJ CARDIAC Implantable Pulse Generator Model [id number] MURJ CARDIAC Implantable Pulse Generator Serial Number [id number] MURJ CARDIAC Implantable Pulse Generator Implant Date [id number] MURJ CARDIAC Battery Remaining Percentage 100.00 MURJ CARDIAC Battery Remaining Longevity 108.0 MURJ CARDIAC Battery Status Beginning of Service MURJ CARDIAC Capacitor Charge Time 9.500 MURJ CARDIAC [...] CARDIAC Therapy Statistic Recent Shocks Del[facility] 0 [facility] Stat[facility] Recent Shocks Aborted 0 MURJ CARDIAC Therapy Statistic Recent ATP Delivered 0 M[facility] CARDIAC Shock Measured Impedance 40 MURJ CARDIAC Lead Channel Setting Sensing Polarity Bipolar MURJ CARDIAC Lead Channel Setting Sensing Polarity Bipolar [facility] CARDIAC Lead Channel Setting Pacing Polarity Bipolar [facility] Lead Channel Setting Pacing Polarity Bipolar [facility] CARDIAC Lead Channel Pacing Threshold Polarity Bipolar [facility] CARDIAC Lead Channel Pacing Threshold Polarity Bipolar MURJ CARDIAC Zone Setting Type Category VF MURJ CARDIAC Rate 1 240 MURJ CARDIAC Therapies Burst,41J,41J,41J x 6 MURJ CARDIAC Zone Setting Status On [facility] CARDIAC Zone ID 1 MUR CARDIAC Zone Setting Type Category VT MURJ CARDIAC Rate 1 200 MURJ CARDIAC Therapies 2 x Burst,41J,41J,41J x 4 MURJ CARDIAC Zone Setting Status On [facility] CARDIAC Zone ID 2 MUR CARDIAC Zone Setting Type Category VT MURJ CARDIAC Rate 1 175 MURJ CARDIAC Therapies 3 x Burst,41J,41J,41J x 3 [facility] CARDIAC Zone Setting Status On [facility] CARDIAC Zone ID 3 [facility] CARDIAC Implantable Lead Operator [employer] [facility] CARDIAC Implantable Lead Model 7741 Ingevity MRI [facility] CARDIAC Implantable Lead Location Right Atrium [facility] CARDIAC Implantable Lead Connection Status Connected [facility] CARDIAC Implantable Lead Serial Number [id number] [facility] CARDIAC Implantable Lead Implant Date [id number] [facility] CARDIAC Implantable Lead Operator [employer] [facility] CARDIAC Implantable Lead Model [id number] [facility] CARDIAC Implantable Lead Location Right Ventricle [facility] CARDIAC Implantable Lead Connection Status Connected [facility] CARDIAC Implantable Lead Serial Number [id number] [facility] CARDIAC Implantable Lead Implant Date [id number] [facility] CARDIAC Implantable Lead Polarity Type Unknown [facility] CARDIAC 03/02/2025 4:01 AM EDT Narrative [facility] CARDIAC - 03/02/2025 8:49 PM EDT Tachycardia: AF *AF re-assessment, scheduling for DCC 03/03* * Presenting EGM: AF/VS * Stored EGMs are consistent with or suggestive of Atrial Fibrillation * Total number of events: Ongoing since at least 02/28 *Diagnostics: *AP 2%, DIAPER MACHINE TENDER 6%, AT/AF burden N/R* Additional Notes: Dr. [...] since at least 02/28 *Diagnostics: *AP 2%, DIAPER MACHINE TENDER 6%, AT/AF burden N/R* Additional Notes: Dr. [...] Wei MD CARDIOLOGY Final Result MURJ CARDIAC documented in this encounter Visit Diagnoses Not on filedocumented in this encounter Care Teams Business Management Intern Relationship Specialty Start Date End Date Samm Serrano MD PCP - General Family Medicine 05/30/12 Tom Gonzalez [address] [place] [address] Primary Staff Physician Cardiology 12/02/18 Andreas Pierre MD [address] [place] [address] Primary Staff Physician Cardiology 04/26/23 Virgil Carrillo MD [address] [place] [address] Primary Staff Physician Cardiology 10/29/23 Jethro Mendoza MD [address] [place] [address] Primary Staff Physician Cardiology 12/26/23 Isaías Kinney MD [address] [place] [address] Primary Staff Physician Cardiology 01/10/24 documented as of this encounter
--- OUTSIDE RECORDS SUMMARY | 2025-03-04 15:23 | XMS_ITS | Encounter Summary ---
Author Organization [facility] Address [address] [place] [address] Care Team Providers Care Dipper Fish Name Role Phone Samm Serrano MD Primary Care Provider +-4 Tom Gonzalez Unavailable [phone] Andreas Pierre MD Unavailable Virgil Carrillo MD Unavailable Jethro Mendoza MD Unavailable Isaías Kinney MD Unavailable [phone] Source Comments In the event this information is protected by the Federal Confidentiality of Alcohol and Drug AbusePatient Records regulations: The Federal rules restrict any use of the information to criminally investigate or prosecute any alcohol or drug abuse patient.[facility] Reason for Visit * Reason Comments Appointment Encounter Details Date Type Department Care Team (Late st Contact Info) Description 12/22/2024 Telephone [facility] [address] [place] [address] Jesusita EsparzaANAND.LAPPER [address] [place] [phone] Appointment Social History Tobacco Use Types Packs/Day Years Used Date Smoking Tobacco: Former Cigarettes 1 10 0 04/28/1972 - 04/28/1982 Pipe Passive Smoke Exposure: Never Smokeless Tobacco: Never Alcohol Use Standard Drinks/Week Comments Not Currently 0 (1 standard drink = 0.6 oz pur e alcohol) rarely [facility] Utilities Answer Date Recorded [...] any time in the past 12 m onths, were you homeless or living in a usp (including now)? Yes 07/22/2024 Area Deprivation Index Answer Date Rich rded National Score (1-100), lower number is lower ri sk 52 02/05/2024 State Score (1-10), lower number is lower risk 3 02/05/2024 Data from: https://www.neighborhoodatlas.medicine.[facility].edu/. Last address used for calculation [address] [place] [address] [address] 02/05/2024 Sex and Gender Information [...] encounter Miscellaneous Notes * Telephone Encounter - Vickie Hopper - 12/22/2024 10:17 AM EDT CV PHONE Name of caller : [facility] Appt Call Center Relationship to patient : None If not self Will need patient permission to release results or disclose health information with called documented in fyi. Patient identified by Name and Date of . ( José Miguel Antonio JrTitus, 1940). Yes Number to return call [phone] Reason for Call: Appointments [facility] Call [facility] calling on behalf of daughter Charu and patient who is requesting to re-schedule tomorrow's Video Visit the currently is with our other [facility] provider (Carlos) due to, at the time, the established Corey provider was out on leave. Today, they called to re-scheduled tomorrow's 12/23/2024 V.V. until after the ultrasound is completedon March 01, 2025. The issue is that the call center needs approval to re-schedule with the non-established provider (Carlos) who has never seen the patient previously but the patient & daughter prefer to remain with for re-scheduling in February 2025. Daughter requests a call back as soon as possible at [phone]. This encounter will also be forwarded to our front desk receptionist as well. documented in this encounter Plan of Treatment Upcoming Encounters Date Type Department Care Team (Late st Contact Info) Description 06/30/2025 10:00 AM EDT Office Visit Cardiology [address] [place] [address] Isaías Kinney MD [address] [place] [address] DX: Chronic diastolic heart failure documented as of this encounter Goals Goal Patient Goal Type Associated Problems Recent Progress Patient-Stated? Author Blood Pressure < 130/80 Blood Pressure 134/63( 025 3:00 PM EDT) No Lidia Lo, ARIES documented as of this encounter Visit Diagnoses Not on filedocumented in this encounter Care Teams Dipper Fish Relationship Specialty Start Date End Date Samm Serrano MD PCP - General Family Medicine 05/30/12 Tom Gonzalez [address] [place] [address] Primary Staff Physician Cardiology 12/02/18 Andreas Pierre MD [address] [place] [address] Primary Staff Physician Cardiology 04/26/23 Virgil Carrillo MD [address] [place] [address] Primary Staff Physician Cardiology 10/29/23 Jethro Mendoza MD [address] [place] [address] Primary Staff Physician Cardiology 12/26/23 Isaías Kinney MD [address] [place] [address] Primary Staff Physician Cardiology 01/10/24 documented as of this encounter
--- OUTSIDE RECORDS SUMMARY | 2025-03-04 15:23 | XMS_ITS | Encounter Summary ---
Author Organization [facility] Address [address] [place] [address] Care Team Providers Care Property Condition Assessor Name Role Phone Samm Serrano MD Primary Care Provider +-4 Tom Gonzalez Unavailable [phone] Andreas Pierre MD Unavailable Virgil Carrillo MD Unavailable Jethro Mendoza MD Unavailable Isaías Kinney MD Unavailable [phone] Source Comments In the event this information is protected by the Federal Confidentiality of Alcohol and Drug AbusePatient Records regulations: The Federal rules restrict any use of the information to criminally investigate or prosecute any alcohol or drug abuse patient.[facility] Encounter Details Date Type Department Care Team (Late st Contact Info) Description 01/29/2024 Get Medical Advice Cardiology [address] [place], [place] [phone] Isaías Kinney MD [address] [place] [address] Lab Results Social History Tobacco Use Types Packs/Day [...] lower risk 3 04/02/2023 Data from: https://www.neigh borhoodatlas.medicine.[facility]/. Last address used for [...] 11:00 AM DOTTIET Jia Rios (Radha)ARIES * Are you blind [...] 10:00 AM EDT Office Visit Cardiology [address] [place] [address] Isaías Kinney MD [address] [place] [address] DX: Chronic diastolic heart failure documented as of this encounter Goals Goal Patient Goal Type Associated Problems Recent Progress Patient-Stated? Author Blood Pressure < 130/80 Blood Pressure 134/63( 025 3:00 PM EDT) Lidia Soto RN documented as of this encounter Visit Diagnoses Not on filedocumented in this encounter Care Teams Property Condition Assessor Relationship Specialty Start Date End Date Samm Serrano MD PCP - General Family Medicine 05/30/12 Tom Gonzalez [address] [place] [address] Primary Staff Physician Cardiology 12/02/18 Andreas Pierre MD [address] [place] [address] Primary Staff Physician Cardiology 04/26/23 Virgil Carrillo MD [address] [place] [address] Primary Staff Physician Cardiology 10/29/23 Jethro Mendoza MD [address] [place] [address] Primary Staff Physician Cardiology 12/26/23 Isaías Kinney MD [address] [place] [address] Primary Staff Physician Cardiology 01/10/24 documented as of this encounter
--- OUTSIDE RECORDS SUMMARY | 2025-03-04 15:23 | XMS_ITS | Encounter Summary ---
Author Organization [facility] Address [address] [place] [address] Care Team Providers Care Supervisor Gluing Name Role Phone Samm Serrano MD Primary Care Provider +-4 Tom Gonzalez Unavailable [phone] Andreas Pierre MD Unavailable Virgil Carrillo MD Unavailable Jethro Mendoza MD Unavailable Isaías Kinney MD Unavailable [phone] Source Comments In the event this information is protected by the Federal Confidentiality of Alcohol and Drug AbusePatient Records regulations: The Federal rules restrict any use of the information to criminally investigate or prosecute any alcohol or drug abuse patient.[facility] Encounter Details Date Type Department Care Team (Late st Contact Info) Description 02/25/2025 Patient [facility] [place] [address] Tessa Zuniga RPh A Smarter Way to Manage Your Heart Failure Medications Social History Tobacco Use Types Packs/Day Years Used Date Smoking Tobacco: Former Cigarettes 1 10 0 04/28/1972 - 04/28/1982 Pipe Passive Smoke Exposure: Never Smokeless Tobacco: Never Alcohol Use Standard Drinks/Week Comments Not Currently 0 (1 standard drink = 0.6 oz pur e alcohol) rarely [facility] Utilities Answer Date Recorded In the past 12 months has e [employer], gas, oil, or water company threatened to [...] place to sleep or slept in a detention (including now)? No 03/02/2024 Housing Stability Vital [...] time in the past 12 m [facility], were you homeless or living in a detention (including now)? Yes 07/22/2024 Area Deprivation Index Answer Date Rich rded National Score (1-100), lower number is lower ri sk 52 02/05/2024 State Score (1-10), lower number is lower risk 3 02/05/2024 Data from: https://www.neighborhoodatlas.medicine.[facility].edu/. Last address used for calculation [address] 02/05/2024 Sex and Gender [...] 10:00 AM EDT Office Visit Cardiology [address] [place] [address] Isaías Kinney MD [address] [place] [address] DX: Chronic diastolic heart failure documented as of this encounter Goals Goal Patient Goal Type Associated Problems Recent Progress Patient-Stated? Author Blood Pressure < 130/80 Blood Pressure 134/63( 025 3:00 PM EDT) Lidia Soto, ARIES documented as of this encounter Visit Diagnoses Not on filedocumented in this encounter Care Teams Supervisor Gluing Relationship Specialty Start Date End Date Samm Serrano MD PCP - General Family Medicine 05/30/12 Tom Gonzalez [address] [place] [address] [phone] Primary Staff Physician Cardiology 12/02/18 Andreas Pierre MD [address] [place] [address] [phone] Primary Staff Physician Cardiology 04/26/23 Virgil Carrillo MD [address] [place] [address] [phone] Primary Staff Physician Cardiology 10/29/23 [place] [address] [place] [address] Primary Staff Physician Cardiology 12/26/23 Isaías Kinney MD [address] [place] [address] Primary Staff Physician Cardiology 01/10/24 documented as of this encounter
--- OUTSIDE RECORDS SUMMARY | 2025-03-04 15:23 | XMS_ITS | Encounter Summary ---
Author Organization [facility] [employer] [facility] tem Address [id number] [address] [place] [address] Care Team Providers Care Commercial Production Editor Name Role Phone Samm Serrano MD Primary Care Provider [phone] Encounter Details Date Type Department Care Team (Late st Contact Info) Description 01/15/2024 Telephone [facility] - Cardiac Rehab [address] [place] [phone] Sheila Finney RN Social History Tobacco Use [...] often do you attend chur ch or temple services? Never 08/17/2021 Do you belong to any clubs o r organizations such as uatsdin groups, unions, fraternal or athletic groups, or [...] Answer Date Recorded Total Score 0 08/17/2021 [facility] of Occupat ional Health - Occupational Stress [...] documented as of this encounter Care Teams Commercial Production Editor Relationship Specialty Start Date End Date Samm Serrano MD PCP - General Family Medicine 02/26/24 documented as of this encounter
--- NOTE | 2025-03-04 15:35 | XR_ITS ---
The [address] [address] Patient Name: LANDEN ROTH MRN: [id number] date: 1940 Sex: M Assigned Patient Location: ER Current Patient Location: ER Accession/Order Number: [id number] Exam Date: 03/04/2025 15:59 Report Date: 03/04/2025 16:01 At the request of: LILY THAKUR NP Procedure: XR chest 1V Plain film chest Single view HISTORY: Shortness of breath COMPARISON: CT chest 11/21/2024 FINDINGS: SUPPORT DEVICES: None POSTSURGICAL CHANGES: Cardiac device intact. Sternal wires. HEART: Similar cardiomegaly PULMONARY ISREAL: Within normal limits MEDIASTINUM: Unremarkable LUNGS AND PLEURA: Redemonstration of moderate left pleural effusion with adjacent atelectasis. No pneumothorax. BONY STRUCTURES: Intact ADDITIONAL FINDINGS None XR/XR chest 1V IMPRESSION: Redemonstration of moderate left pleural effusion and adjacent atelectasis. Cardiomegaly. Intact cardiac device Impression dictated by: Jalen Garrido M.D. 03/04/2025 4:01 PM Dictation Location: [place] [address] Electronically authenticated by: [id number] Y Date: 03/04/2025 16:01
--- NOTE | 2025-03-04 15:35 | ECG_ITS ---
The [facility] Test Date: 2025-03-04 Pat Name: LANDEN ROTH Department: Room: - Gender: Male [employer] Attendant: : 1940 Requested By: [id number] Order Number: [id number] Quirino MD: MALAIKA FAUST M.D. Measurements Intervals Outing Rate: 69 P: 30 AL: 146 QRS: 73 QRSD: 116 T: -58 QT: 420 QTc: 439 Interpretive Statements 1100 Sinus rhythm 3113 Cannot rule out anterior myocardial infarction, probably old [address] depression 8101 Low QRS voltage in limb leads 9150 abnormal ECG Compared to ECG 11/21/2024 08:59:32 Ventricular premature complex(es) no longer present Electronically Signed On 03-04-2025 17:56:40 EDT by MALAIKA FAUST M.D.
[2025-03-04 16:01] LABS: Hematocrit 42.3 % (42.0-54.0); Hemoglobin 13.8 g/dL (14.0-18.0); Mean Corpuscular HGB Conc 32.6 g/dL (29.9-35.2); Mean Corpuscular Hemoglobin 31.4 pg (25.9-34.0); Mean Corpuscular Volume 96.1 fL (80.0-94.0); Mean Platelet Volume 10.9 fL (9.5-13.5); Platelet Count 172 10^3/uL (150-450); Red Cell Distribution Width 17.4 % (11.0-15.0); White Blood Count 9.8 10^3/uL (4.0-11.0)
--- NOTE | 2025-03-04 16:06 | ED.GENADUL1 ---
HPI HPI - General Adult General Chief complaint: Extremity Problem, Nontraumatic Stated complaint: SWOLLEN LEGS Time Seen by Provider: 03/04/25 15:23 Source: patient and family Mode of arrival: Wheelchair Limitations: no limitations History of Present Illness HPI narrative: Patient is an 85-year-old male who presents to the emergency department today for evaluation of concerns for shortness of breath and lower extremity swelling. He endorses he has a history of CHF and is on Bumex 2 mg twice a day for this. He endorses over the past 2 weeks he has had progressively worsening exertional dyspnea and lower extremity swelling. He states he was in [place] yesterday at which time he had a cardioversion for his A-fib. Historically he is on Eliquis and been compliant with this therapy. He denies any chest pain. No fever/chills or cough/cold symptoms. He denies any weakness, paresthesias, or loss of movement to his lower extremities. Related Data Home Medications ?Medication ?Instructions ?Recorded ?Confirmed metoprolol succinate 25 mg 12.5 mg PO DAILY 09/26/23 03/04/25 tablet,extended release 24 hr apixaban 2.5 mg tablet (Eliquis) 5 mg PO Q12H 09/13/24 03/04/25 torsemide 20 mg tablet 20 mg PO BID 09/13/24 03/04/25 Held on 03/04/25. Instructions: Doctor's Order bumetanide 0.5 mg tablet 2 mg PO BID 11/21/24 03/04/25 levothyroxine 100 mcg tablet 100 mcg PO DAILY 03/04/25 03/04/25 liothyronine 5 mcg tablet 5 mcg PO .QD 03/04/25 03/04/25 mexiletine 150 mg capsule 150 mg PO BID 03/04/25 03/04/25 potassium chloride 20 mEq 20 meq PO BID 03/04/25 03/04/25 tablet,extended release potassium chloride 20 mEq 20 meq PO BID 03/04/25 03/04/25 tablet,extended release(part/cryst) spironolactone 25 mg tablet 25 mg PO .QD 03/04/25 03/04/25 thiamine HCl (vitamin B1) 100 mg 100 mg PO DAILY 03/04/25 03/04/25 capsule Allergies Allergy/AdvReac Type Severity Reaction Status Date / Time latex Allergy Severe Rash Verified 03/04/25 15:28 Opioid HPI Opioid Management Most Recent Opioid Data: Last Pain Scale 6 09/15/24, 12:24 Last ORT Total Score 0 09/12/24, 20:34 Last ORT Risk Category Low Risk 09/12/24, 20:34 Review of Systems ROS Status of ROS 10 or more systems reviewed and unremarkable except as noted in history and below [facility] Medical History (Updated 03/04/25 @ 17:35 by Shelli Crowe NP) CHF (congestive heart failure) ?I50.9 - Heart failure, unspecified (ICD-10) Atrial fibrillation ?I48.91 - Unspecified atrial fibrillation (ICD-10) Anemia ?D64.9 - Anemia, unspecified (ICD-10) Dyspnea ?R06.00 - Dyspnea, unspecified (ICD-10) Abrasion, multiple sites ?T07.XXXA - Unspecified multiple injuries, initial encounter (ICD-10) Edema of both lower legs due to peripheral venous insufficiency ?I87.2 - Venous insufficiency (chronic) (peripheral) (ICD-10) ?R60.0 - Localized edema (ICD-10) GI bleed ?K92.2 - Gastrointestinal hemorrhage, unspecified (ICD-10) Myocardial infarct ?I21.9 - Acute myocardial infarction, unspecified (ICD-10) Prostate CA ?C61 - Malignant neoplasm of prostate (ICD-10) Stroke ?I63.9 - Cerebral infarction, unspecified (ICD-10) Cardiac defibrillator in place ?Z95.810 - Presence of automatic (implantable) cardiac defibrillator (ICD-10) FH: carotid endarterectomy ?Z82.49 - Family history of ischemic heart disease and other diseases of the circulatory system (ICD-10) Non-sustained ventricular tachycardia ?I47.29 - Other ventricular tachycardia (ICD-10) Elevated troponin ?R79.89 - Other specified abnormal findings of blood chemistry (ICD-10) CHF (congestive heart failure) ?I50.9 - Heart failure, unspecified (ICD-10) Surgical History S/P triple vessel bypass ?Z95.1 - Presence of aortocoronary bypass graft (ICD-10) S/P mitral valve clip implantation ?Z98.890 - Other specified postprocedural states (ICD-10) ?Z95.818 - Presence of other cardiac implants and grafts (ICD-10) Family History Brother Family history of CHF (congestive heart failure) Father Family history of myocardial infarction Social History Within the past year, how often did you have a drink containing alcohol: never Score interpretation: A score less than 4 is consistent with normal alcohol consumption. Smoking status: Never smoker Non-prescribed substance use: denies use Highest level of school completed/degree received: some college, no degree Are you now , , , , never or living with a partner: Little interest or pleasure in doing things: not at all Feeling down, depressed, or hopeless: not at all Do you think of yourself as: straight/heterosexual Gender Identity: male Exam Narrative Exam Narrative: Constituational: Awake/ alert, no apparent distress,/fatigued appearing HENMT: normocephalic, external ears normal, moist oral mucous membranes and oropharynx normal Eyes: EOMI and conjunctivae normal Neck: ROM intact Chest: inspection of chest normal Respiratory: Normal respiratory effort, clear to auscultation bilaterally with fair aeration throughout Cardio: regular rate and regular rhythm GI: soft to palpation and non-tender Back: nontender MSK: + 2 dependent edema B/L LE, ROM intact, +NVI Skin: no rashes or petechiae Neuro: no focal deficits Psych: mental status grossly normal Constitutional Vital Signs, click to edit/add: Last Vital Signs Temp 97.5 F L 03/04/25 15:25 Pulse 69 03/04/25 15:25 Resp 18 03/04/25 15:25 BP 103/67 03/04/25 15:25 Pulse Ox 94 L 03/04/25 15:25 O2 Del Method Room Air 03/04/25 15:25 Course Vital Signs Vital signs: Vital Signs Blood Pressure 103/67 03/04/25 15:22 Temperature 97.5 F L 03/04/25 15:25 Pulse Rate 69 03/04/25 15:25 Respiratory Rate 18 03/04/25 15:25 Blood Pressure 103/67 03/04/25 15:25 Pulse Oximetry 94 L 03/04/25 15:25 Oxygen Delivery Method Room Air 03/04/25 15:25 Medical Decision Making [facility] [place] Narrative Medical decision making narrative: Mildly alert fatigued-appearing 85-year-old male who presented to the emergency department today for evaluation concerns for shortness of breath and lower leg swelling. Initial examination patient does appear somewhat volume expanded as evidenced by edema to his lower extremities. He otherwise does not appear to be exhibiting any ischemic symptoms. No obvious clinical evidence concerning for infectious processes such as URI. EKG without acute changes. Troponin is elevated at 851.9 however this is noted following reported cardioversion for A-fib yesterday. Troponin is pending. Actually down trended per prior troponins. Chest x-ray does show moderate left pleural effusion and BNP is greater than 35,000 which is stable per prior trends. No significant leukocytosis, Hgb 13, no thrombocytopenia. Electrolytes including hepatic function stable. Patient noted with elevated renal function with creatinine 3.2, per baseline that seems to be around 2.3. Patient CHF exacerbation. Discussed patient's condition with Dr. Serrano (PCP) 0840p -> this patient for admission. Per Dr. Serrano will initiate Bumex drip upon admission to medical floor for diuresis hold off on any diuretic therapy in the ER. Discussed these findings and recommendations with the patient and his family who was present at the bedside. All are agreeable with the plan to be admitted for further care of the above. Medical Records Medical records reviewed: Yes I reviewed the patient's medical records Lab Data Lab results reviewed: Yes I reviewed the patient's lab results Labs: Lab Results 03/04/25 Range/Units 15:40 WBC 9.8 (4.0-11.0) 10^3/uL RBC 4.40 L (4.70-6.10) 10^6/uL Hgb 13.8 L (14.0-18.0) g/dL Hct 42.3 (42.0-54.0) % MCV 96.1 H (80.0-94.0) fL MCH 31.4 (25.9-34.0) pg MCHC 32.6 (29.9-35.2) g/dL RDW 17.4 H (11.0-15.0) % Plt Count 172 (150-450) 10^3/uL MPV 10.9 (9.5-13.5) fL Seg Neuts % (Manual) 90.0 H (43.0-75.0) Lymphocytes % (Manual) 6.0 L (20.5-60.0) % Monocytes % (Manual) 4.0 (1.7-12.0) % Eosinophils % (Manual) 0.0 L (0.9-7.0) % Basophils % (Manual) 0.0 L (0.2-2.0) % Neutrophils # (Manual) 8.82 H (1.4-6.5) 10^3/uL Lymphocytes # (Manual) 0.58 L (1.20-3.80) 10^3/uL Monocytes # (Manual) 0.39 (0.30-0.80) 10^3/uL Eosinophils # (Manual) 0.00 (0.00-0.70) 10^3/uL Basophils # (Manual) 0.00 (0.00-0.10) 10^3/uL Sodium 135 L (136-145) mmol/L Potassium 5.3 H (3.5-5.1) mmol/L Chloride 99 (98-107) mmol/L Carbon Dioxide 25.6 (21.0-32.0) mmol/L Anion Gap 15.7 BUN 71.0 H (7.0-18.0) mg/dL Creatinine 3.26 H (0.70-1.30) mg/dL Est GFR ( Amer) 22 L (>=60 mL/min/1.73m^2) Est GFR (Non-Af Amer) 18 L (>=60 mL/min/1.73m^2) BUN/Creatinine Ratio 21.8 Glucose 90 (74-106) mg/dL Calcium 9.4 (8.5-10.1) mg/dL Total Bilirubin 2.2 H (0.2-1.0) mg/dL AST 20 (15-37) U/L ALT 16 (16-63) U/L Alkaline Phosphatase 114 (46-116) U/L Troponin I High Sens 851.9 H* (4.0-76.1) pg/mL NT-Pro-B Natriuret Pep >08025.0 H* (<=1800.0) pg/mL Total Protein 7.3 (6.4-8.2) g/dL Albumin 3.1 L (3.4-5.0) g/dL Globulin 4.2 g/dL Albumin/Globulin Ratio 0.7 ECG Data Attestation: I personally reviewed and interpreted this ECG as follows: (SR with HR 69, no acute/ischemic changes) Discharge Plan Discharge Patient Disposition: Still a Patient
[2025-03-04 16:19] LABS: Lymphocytes Absolute Manual 0.58 10^3/uL (1.20-3.80); Monocytes Absolute Manual 0.39 10^3/uL (0.30-0.80); Segmented Neut Absolute Manual 8.82 10^3/uL (1.4-6.5)
[2025-03-04 16:24] LABS: Alanine Aminotransferase 16 U/L (16-63); Albumin Globulin Ratio 0.7; Albumin Level 3.1 g/dL (3.4-5.0); Alkaline Phosphatase 114 U/L (46-116); Anion Gap 15.7; Aspartate Amino Transferase 20 U/L (15-37); BUN Creatinine Ratio 21.8; Bilirubin Total 2.2 mg/dL (0.2-1.0); Calcium 9.4 mg/dL (8.5-10.1); Carbon Dioxide 25.6 mmol/L (21.0-32.0); Chloride 99 mmol/L (98-107); Estimated GFR (African America 22 (>=60 mL/min/1.73m^2); Estimated GFR (Non-African Ame 18 (>=60 mL/min/1.73m^2); Globulin 4.2 g/dL; Glucose 90 mg/dL (74-106); Potassium 5.3 mmol/L (3.5-5.1); Sodium 135 mmol/L (136-145); Total Protein 7.3 g/dL (6.4-8.2)
[2025-03-04 16:36] LABS: NT Pro B Type Natriuretic Pept >35000.0 pg/mL (<=1800.0)
[2025-03-04 16:37] LABS: Troponin I High Sensitivity 851.9 pg/mL (4.0-76.1)
--- NOTE | 2025-03-04 18:23 | P.HP_ITS ---
HPI H&P: HPI History of Present Illness Chief complaint: CHF EXACERBATION Narrative: Patient was cardioversion yesterday, he had the edema at that time, recommendations were given while he was at the [facility], received a call at the office from his home health agency that patient looked pale, weak, slightly confused, edema getting worse and up into the abdomen I saw patient in the emergency room, resting company bed he does seem very fatigued, especially compared to his baseline. Did not notice any confusion but family states he has been having some episodes of that with some garbled speech but no focal neurological deficits noted, this is consistent findings with previ ous UTI or infections Opioid HPI Opioid Management Most Recent Pain and Opioid Data: Last Pain Scale 6 09/15/24, 12:24 Last ORT Total Score 0 09/12/24, 20:34 Last ORT Risk Category Low Risk 09/12/24, 20:34 Review of Systems 2 ROS Status of ROS 10 or more systems reviewed and unremark able except as noted in history and below [facility] Medical History (Updated 03/04/25 @ 17:35 by Shelli Crowe NP) CHF (congestive heart failure) ?I50.9 - Heart failure, unspecified (ICD-10) Atrial fibrillation ?I48.91 - Unspecified atrial fibrillation (ICD-10) Anemia ?D64.9 - Anemia, unspecified (ICD-10) Dyspnea ?R06.00 - Dyspnea, unspecified (ICD-10) Abrasion, multiple sites ?T07.XXXA - Unspecified multiple injuries, initial encounter (ICD-10) Edema of both lower legs due to peripheral venous insufficiency ?I87.2 - Venous insufficiency (chronic) (peripheral) (ICD-10) ?R60.0 - Localized edema (ICD-10) GI bleed ?K92.2 - Gastrointestinal hemorrhage, unspecified (ICD-10) Myocardial infarct ?I21.9 - Acute myocardial infarction, unspecified (ICD-10) Prostate CA ?C61 - Malignant neoplasm of prostate (ICD-10) Stroke ?I63.9 - Cerebral infarction, unspecified (ICD-10) Cardiac defibrillator in place ?Z95.810 - Presence of automatic (implantable) cardiac defibrillator (ICD-10) FH: carotid endarterectomy ?Z82.49 - Family history of ischemic heart disease and other diseases of the circulatory system (ICD-10) Non-sustained ventricular tachycardia ?I47.29 - Other ventricular tachycardia (ICD-10) Elevated troponin ?R79.89 - Other specified abnormal findings of blood chemistry (ICD-10) CHF (congestive heart failure) ?I50.9 - Heart failure, unspecified (ICD-10) Surgical History S/P triple vessel bypass ?Z95.1 - Presence of aortocoronary bypass graft (ICD-10) S/P mitral valve clip implantation ?Z98.890 - Other specified postprocedural states (ICD-10) ?Z95.818 - Presence of other cardiac implants and grafts (ICD-10) Family History Brother Family history of CHF (congestive heart failure) Father Family history of myocardial infarction Social History Within the past year, how often did you have a drink containing alcohol: never Score interpretation: A score less than 4 is consistent with normal alcohol consumption. Smoking status: Never smoker Non-prescribed substance use: denies use Highest level of school completed/degree received: some college, no degree Are you now , , , , never or living with a partner: Little interest or pleasure in doing things: not at all Feeling down, depressed, or hopeless: not at all Do you think of yourself as: straight/heterosexual Gender Identity: male Meds Home Medications and Allergies Home Medications ?Medication ?Instructions ?Recorded ?Confirmed ?Type metoprolol succinate 25 mg 12.5 mg PO DAILY 09/26/23 0 03/04/25 History tablet,extended release 24 hr apixaban 2.5 mg tablet (Eliquis) 5 mg PO Q12H 09/13/24 03/04/25 History torsemide 20 mg tablet 20 mg PO BID 09/13/24 History Held on 03/04/25. Instructions: Doctor's Order bumetanide 0.5 mg tablet 2 mg PO BID 11/21/24 5 History dapagliflozin propanediol 10 mg 10 mg PO DAILY 5 03/04/25 History tablet (Farxiga) levothyroxine 100 mcg tablet 100 mcg PO DAILY 03/04/25 03/04/25 History liothyronine 5 mcg tablet 5 mcg PO .QD 03/04/25 History mexiletine 150 mg capsule 150 mg PO BID 03/04/2503/04 History potassium chloride 20 mEq 20 meq PO BID 03/04/2503/04 History tablet,extended release potassium chloride 20 mEq 20 meq PO BID 03/04/2503/04 History tablet,extended release(part/cryst) spironolactone 25 mg tablet 25 mg PO .QD 03/04/2502/14 History thiamine HCl (vitamin B1) 100 mg 100 mg PO DAILY 03/0403/04/25 History capsule Allergies Allergy/AdvReac Type Severity Reaction Status Date / Time latex Allergy Severe Rash Verified 03/04/25 15:28 Exam Constitutional Vital Signs, click to edit/add: Last Vital Signs Temp 97.5 F L 03/04/25 15:25 Pulse 65 03/04/25 18:21 Resp 18 03/04/25 18:21 BP 111/72 03/04/25 18:21 Pulse Ox 90 L 03/04/25 18:21 O2 Del Method Room Air 03/04/25 15:25 Documenting provider has reviewed patient's vital signs: yes Common normals: apparent distress (Appears very fatigued) Chest Common normals: inspection of chest normal and palpation of chest normal Respiratory Common normals: normal respiratory effort and no retractions; not clear to ascultation bilaterally Auscultation: diminished lung sounds Cardio Common normals: regular rate, regular rhythm and no murmurs GI Common normals: soft to palpation; negative for Normal to inspection, nondistended, normoactive bowel sounds present (Appears to have lower abdominal wall edema) Extremity Common normals: abnormal to inspection (Left lower extremity more so than right with cellulitis and 3-4+ edema) Results Labs Labs: Short CBC 03/04/25 Range/Units 15:40 WBC 9.8 (4.0-11.0) 10^3/uL Hgb 13.8 L (14.0-18.0) g/dL Hct 42.3 (42.0-54.0) % Plt Count 172 (150-450) 10^3/uL BMP 03/04/25 15:40 Sodium 135 L Potassium 5.3 H Chloride 99 Carbon Dioxide 25.6 BUN 71.0 H Creatinine 3.26 H Glucose 90 Calcium 9.4 Liver Function 03/04/25 Range/Units 15:40 Total Bilirubin 2.2 H (0.2-1.0) mg/dL AST 20 (15-37) U/L ALT 16 (16-63) U/L Alkaline Phosphatase 114 (46-116) U/L Albumin 3.1 L (3.4-5.0) g/dL Assessment and Plan Assessment and Plan (1) Acute exacerbation of congestive heart failure: (2) Heart failure: Qualifiers: Heart failure chronicity: unspecified Heart failure type: unspecified Qualified Code(s): I50.9 - Heart failure, unspecified (3) Atrial fibrillation: (4) Anemia: (5) Dyspnea: (6) Edema of both lower legs due to peripheral venous insufficiency: (7) Cardiac defibrillator in place: (8) Elevated troponin: Plan Admission findings: Borderline low blood pressure, hyponatremia, hyperkalemia, acute kidney injury, acute elevation in high-sensitivity troponin and BNP, peripheral edema and pleural effusion consistent with acute combined congestive heart failure Acute combined congestive heart failure-now with creatinine already elevated will do Bumex drip over 10 hours, Acute kidney injury stage I-baseline creatinine of 2.19 earlier this year, creatinine admission 3.26 which is 150% above baseline with decreased urine output in the last 6 hours would be consistent with acute kidney injury stage I- this will complicate his diuresis needed for the acute combined congestive heart failure as outlined above Acute elevation of troponin this is likely secondary to his cardioversion although he maintains consistently an elevated troponin, will do them in series and repeat in a.m., discussed with cardiology [facility] based on results Cellulitis left lower extremity-check wound culture, start patient on IV antibiotics History of recurrent UTIs-check urinalysis and bladder scan as he has a history of bladder outlet obstruction as well which could be contributing to his acute kidney injury stage I Iron deficiency anemia-monitor daily Hyponatremia-repeat in a.m., likely related to fluid overload Hyperkalemia this is likely medication induced, hold off on spironolactone or lactone and potassium supplementation and repeat in a.m. diuresis likely to improve Elevated bilirubin likely related to passive congestion from the acute combined congestive heart failure Left pleural effusion secondary to acute combined congestive heart failure as outlined above, consider repeat x-ray Per family has had some ascites in the past as well, will check ultrasound of abdomen after diuresis tomorrow Atrial fibrillation with status post cardioversion-so far to maintain normal sinus rhythm, maintain anticoagulation Hypothyroidism-check levels Admission status: Patient with significant left pleural effusion, borderline hypoxia, severe weakness secondary to acute combined congestive heart failure with significant elevation in high-sensitivity troponin, medically necessary treatment will span 2 midnights, likely 3 to 4-day hospitalization, inpatient status
[2025-03-04 18:29] LABS: Troponin I High Sensitivity 818.4 pg/mL (4.0-76.1)
--- OUTSIDE RECORDS SUMMARY | 2025-03-04 18:51 | XMS_ITS | CCD ---
Author Organization [facility] Care Team Providers Care Care Advocate Name Role Phone Samm Thompson MD Primary Care Provider [phone] Tom Gonzalez Unavailable [phone] SHARON HOOKS Referring Unavailable MARLENE KRISHNA Attending Unavailable NORMA ARORA Admitting Unavailable SAMM THOMPSON Primary Care Unavailable Samm Thompson MD Primary Care Provider [phone] Tom Gonzalez Unavailable [phone] Samm Thompson MD Primary Care Provider [phone] SAMM AYERS Primary [...] Zahra Pierre MD Unavailable Tom Gonzalez Unavailable Zahra Pierre MD Unavailable Virgil Carrillo MD Unavailable Efren Brady MD Unavailable Samm Thompson MD Primary Care Provider [phone] Paulina Fernandes MD Unavailable CHERYL LEES Attending Unavailable SAMM THOMPSON Primary Care Unavailable ABDULAZIZ BENITEZ Consulting Unavailable CHERYL LEES Admitting Unavailable Carmela Fernandes MD Unavailable Samm Thompson MD Primary Care Provider [phone] Samm Thompson MD Primary Care Provider [phone] Samm Thompson MD Primary Care Provider [phone] Unavailable Primary Care Provider Unavailabl e IVANIA, HARI Referring Unavailable KAYLEY, SARMED Referring Unavailable MIKE, RAMA Admitting Unavailable JUAN PABLO TAVARES Attending Unavailab le GANGWANI, JUAN PABLO DE LA ROSA Consulting Unavailab le KAYLEY, SARMED Referring Unavailable IVANIA, HARI Referring Unavailable IVANIA, HARI Referring Unavailable IVANIA, HARI Referring Unavailable IVANIA, HARI Admitting Unavailable KAYLEY, SARMED Attending Unavailable IVANIA, HARI Referring Unavailable JOSÉ MIGUEL HOWARD Referring Unavailable MOUKARBEL MALAIKA Attending Unavailable KAYLEY, SARMED Referring Unavailable MIKE, RAMA Referring Unavailable MIKE, RAMA Referring Unavailable MARTIN CHARU Referring Unavailable GANGWANI, JUAN PABLO DE LA ROSA Referring Unavailab le PIRKL, VILMA Referring Unavailable MOUKARBELMALAIKA Referring Unavailable MOUKARBEL, MALAIKA Attending Unavailable BEKA YOUNG Attending Unavailable IVANIA, HARI Referring Unavailable ZAHRA LEON Referring Unavailable HOY, SAMM M Primary Care Unavailable DIRK SANDERS Referring Unavailable HOY, SAMM M Primary Care Unavailable Samm Thompson MD Primary Care Provider [phone] AYANA EVANS Attending Unavailable HOY, SAMM M Primary Care Unavailable ZAHRA LEON Attending Unavailable ZAHRA LEON Attending Unavailable WALKERZAHRA R Referring Unavailable HOY, SAMM M Primary Care Unavailable ZAHRA LEON Attending Unavailable WALKERZAHRA R Referring Unavailable HOY, SAMM M Primary Care [...] M Primary Care Unavailable HOY, SAMM M Attending Unavailable HOY, SAMM M Primary Care Unavailable HOY, SAMM M Primary Care Unavailable JOSE ANTONIO, SERGE Referring Unavailable HOY, SAMM M Primary Care Unavailable JOSE ANTONIO, SERGE Attending Unavailable JOSE ANTONIO, SERGE Referring Unavailable HOY, SAMM M Primary Care Unavailable DEVEN, [place] Attending Unavailable DEVEN, [place] Referring Unavailable HOY, [...] SAMM M Primary Care Unavailable LUÍS SKINNER Referring Unavailable HOY, SAMM M Primary Care [...] Primary Care Unavailable OSCAR, LEVAR Admitting Unavailable OSCAR, LEVAR Attending Unavailable GAVI CHILDRESS Referring Unavailable HOY, SAMM [...] Primary Care Unavailable EFREN BRADY Referring Unavailable HOY, SAMM M Primary Care Unavailable CARMELA FERNANDES Attending Unavailable CARMELA FERNANDES Referring Unavailable HOY, SAMM M Primary Care Unavailable DEVEN, [place] Attending Unavailable HOY, SAMM M Primary Care Unavailable DEVEN, [place] Referring Unavailable HOY, SAMM M Primary Care Unavailable CARMELA FERNANDES Attending Unavailable FUENTES WHEAT Attending Unavailable DEVEN, [place] Referring Unavailable HOY, SAMM M Primary Care Unavailable HOY, SAMM M Primary Care Unavailable JAMIE HEREDIA Referring Unavailable HOY, SAMM M Primary Care Unavailable JESUSITA AMIN Admitting Unavailable MD VIET, SAIDA Attending Unavailable HOY, SAMM M Primary Care Unavailable LEEANN BLOUNT Admitting Unavailable LEVAR MOORE Attending Unavailable Allergies Allergy Classification Reported Allergen(s) Allergy Type Date of Onset Reaction(s) Facility Adhesive Tape (2 sources) Adhesive Tape Substance Allergy 2 [facility] Work Phone: Latex (2 sources) Latex Substance Allergy 9 [facility] (20 sources) Adhesive Tape; Translations: [ADHESIVE TAPE (ROSINS)] Allergy to substance 2 [facility] Work Phone: (20 sources) Latex; Translations: [LATEX] Drug Allergy 9 [facility] (3 sources) Latex Drug allergy (disorder) 4 [facility] (2 sources) Penicillins Propensity to adverse reactions 5 [facility] Medications Current Medications Medication Drug Class(es) Dates Sig (Normalized) Sig (Original) apixaban 2.5 mg oral tablet (20 sources) Factor Xa Inhibitor Start: 07-26-2024 take 1 tablet by mouth twice daily apixaban (ELIQUIS) 5 mg tab(s) Take 1 tablet by mouth two times a day. 30 tablet 3 07/26/2024 Suspended Start: 05-16-2024 End: 10-25-2024 take 1 tablet by mouth twice daily apixaban (ELIQUIS) 2.5 mg tab(s) Take 1 tablet by mouth two times a day. 05/16/2024 Active Start: 08-24-2021 End: 06-06-2022 take 1 [...] mouth. Take by mouth as nee ded. budesonide/formoterol fumarate (SYMBICORT INHALATION) (12 sources) budesonide/formo terol fumarate (SYMBICORT INHALATION) Inhale 1 Inhalation as instructed two times a day. 0 Suspended budesonide/formo terol fumarate (SYMBICORT INHALATION) Inhale 1 Inhalation as instructed two times a day. 0 Active bumetanide 2 mg oral tablet (9 sources) Loop Diuretic take 1 tablet by mouth twice daily bumetanide (BUMEX) 2 mg tablet Take 2 mg by mouth two times a day. Active take 1 tablet by mouth once david y bumetanide (Bumex) 2 MG tablet Take by mouth Daily Active cetirizine hydrochloride 10 mg oral tablet [...] with breakfast. 90 tablet 3 12/21/2024 12/21/2025 Active Start: 05-23-2022 End: 12-03-2023 take 1 tablet by mouth once daily FARXIGA 10 mg tablet Take 1 tablet by mouth once daily. 90 tablet 3 12/03/2022 10/30/2023 Discontinued Comment on above: Take 10 mg by mouth once daily. Take 1 tablet by anuja th once daily. Take 10 mg by mouth daily with breakfast. levothyroxine sodium 0.088 mg oral tablet (12 sources) l-Thyroxine Start: End: take 1 tablet by mouth once daily levothyroxine (SYNTHROID) 88 mcg tablet Take 1 tablet by mouth once daily. 90 tablet 09/25/2024 Active levothyroxine (T irosint) 88 MCG capsule Take by mouth Daily before meals Active lisinopril 5 mg oral tablet (20 sources) Angiotensin Converting Enzyme Inhibitor Start: 04-11-2021 End: 08-22-2024 take 1 tablet by mouth once daily lisinopriL (PRINIVIL,ZESTRIL) 5 mg tablet Take 5 mg by mouth daily. 07/11/2021 Active Comment on above: Take 1 tablet by mouth daily at bedtime. Take 1 tablet by anuja th once daily. MAGNESIUM GLUCONATE (20 sources) take 160 mg by mouth once daily MAGNESIUM GLUCONATE ORAL Take 160 mg by mouth once daily. 0 Suspended take 160 mg by mouth once daily MAGNESIUM GLUCONATE ORAL Take 160 mg by mouth once daily. 0 Active Comment on above: Take 160 mg by mouth once daily. ondansetron 4 mg oral tablet (2 sources) Serotonin-3 Receptor Antagonist ondansetron (Zofran) 4 MG tablet Take by mouth Active perflutren lipid microspheres 1.3 mL in [...] chloride 20 meq extended release oral tablet (20 sources) Start: 09-25-2024 End: 10-25-2024 take 2 [...] instructed four times daily. 09/25/2024 10/25/2024 Active tropicamide 10 mg/ml ophthalmic solution (2 sources) Anticholinergic Start: 03-02-2024 End: 03-03-2024 tropicamide 1 % 1 Drop (MYDRIACYL) cseador-grjp-ojzcj- oreg-capryl 100 mg-150 mg- 50 mg-150 mg capsule (20 sources) take 1 capsule by mouth once daily azeulns-vtjl-prtoe -oreg-capryl 100 mg-150 mg- 50 mg-150 mg capsule Take 1 capsule by mouth daily. Active take 1 capsule by mo uth once daily zsetffc-xxki-xpimq-oreg-capryl 100 mg-15 0 mg- 50 mg-150 mg capsule Take 1 capsule by mouth daily. 0 Active zinc gluconate 50 mg oral tablet (20 sources) take 1 tablet by anuja th once daily zinc gluconate 50 mg tablet [...] tablet (20 sources) HMG-CoA Reductase Inhibitor Start: 019 End: 025 take 1 tablet by mouth once daily at bedtime atorvastatin (LIPITOR) 40 mg tablet Take 1 tablet by mouth daily at bedtime. 2 05/16/2024 03/01/2025 Discontinued Comment on above: Take 40 mg by mouth daily at bedtime. bicalutamide 50 mg oral tablet (9 sources) [...] mg by mouth two times a day. 24 hr metoprolol succinate 25 mg extended release oral tablet (20 sources) beta-Adrenergic Jasbir Start: 02-20-2024 End: 05-16-2025 take 1 tablet by mouth once daily metoprolol succinate ER (TOPROL XL) 25 mg 24 hr tablet Take 1 tablet by mouth once daily. 90 tablet 3 05/16/2024 12/03/2024 Discontinued (Discontinued by another Health Care Provider) Start: 06-06-2022 End: 06-06-2023 take 1 tablet [...] completed) take 1 tablet by anuja th once daily metoprolol succinate ER (TOPROL XL) 25 mg 24 hr tablet Take 12.5 mg by mouth once daily. Active take 1 tablet by anuja th every twenty-four hours metoprolol succinate XL (Toprol-XL) 25 MG 24 hr tablet Take by mouth Do not crush or chew. Active Comment on above: Take 25 mg by mouth once daily. [facility]. mexiletine hydrochloride 200 mg oral capsule (13 sources) Antiarrhythmic Start: 09-25-19 End: 12-04-19 take 1 capsule by mouth every twelve hours mexiletine (MEXITIL) 200 mg capsule Take 1 capsule by mouth every 12 hours. 60 capsule 09/25/2024 12/03/2024 Discontinued (Discontinued by another Health Care Provider) take 1 capsule by mouth twice da marin mexiletine (MEXITIL) 150 mg capsule Take 150 mg by mouth two times a day. Active take 1 capsule by mo [facility] every eight hours mexiletine (Mexitil) 150 MG capsule Take 150 mg by mouth every 8 (eight) hours Active nitroglycerin 0.4 mg sublingual tablet (20 sources) [...] once daily. thiamine 50 mg oral tablet (16 sources) Start: 05-17-2024 End: 07-21-2024 take 1 tablet by mouth once daily thiamine (VITAMIN B1) 50 mg tablet Take 1 tablet by mouth once daily. 05/17/2024 07/21/2024 Discontinued (Cost of medication) take 1 tablet by mouth once david y thiamine (VITAMIN B1) 100 mg tablet Take 100 mg by mouth once daily. 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 Give 1 tablet by mouth every 24 hours for give with 15mg =75mg total 05/25/2024 Suspended Start: 05-16-2024 End: 07-21-2024 take 1 tablet by mouth once daily, then take 1 tablet by mouth every twenty-four hours thyroid (AG[employer]ULT[employer] SCIENCES PROFESSOR THYROID) 15 mg tablet Take 1 tablet by mouth once daily. Give 1 tablet by mouth every 24 hours for give with 60mg=75mg total 05/25/2024 Suspended Start: 03-26-2023 take 1 tablet by mouth once da marin [employer] SCI[employer]ES PROFESSOR THYROID 15 mg tablet Take 15 mg by mouth once daily. 03/26/2023 Suspended take 1.25 tablets by mouth in the morning thyroid, pork, (AG[employer]ICULTURAL SCIENCES PROFESSOR THYROID) 60 mg tablet Take 1.25 tablets [...] (20 sources) Loop Diuretic Start: 09-25-2024 End: 12-03-2024 take 4 tablets by mouth once daily torsemide (DEMADEX) 20 mg tablet Take 4 tablets by mouth once daily. 120 tablet 09/25/2024 12/03/2024 Discontinued (Discontinued by another Health Care Provider) Start: 07-26-2024 take 2 tablets by mo [facility] twice daily torsemide (DEMADEX) 20 mg tablet Take 2 tablets by mouth two times a day. 60 tablet 3 07/26/2024 Suspended Start: 03-13-2019 End: 10-29-2023 take 1 tablet by mouth once daily as needed torsemide (DEMADEX) 10 mg tablet Take 10 mg by mouth daily as needed. 03/13/2019 Active Comment on above: Take 1 tablet by [facility] once daily. triamcinolone acetonide 1 mg/ml topical cream (10 sources) Corticosteroid End: 03-01-2025 triamcinolone acetonide (KENALOG) 0.1 % cream Apply 1 application to affected area two times a day. 03/01/2025 Discontinued Turmeric extract (20 sources) End: 10-25-2022 TURMERIC ORAL Take by mouth as needed. 10/25/2022 Discontinued (Course of therapy completed) End: 10-25-2022 TURMERIC ORAL Take by mouth as needed. 0 10/25/2022 Discontinued (Course of therapy completed) TURMERIC ORAL Ta ke by mouth. 0 Active Comment on above: Take by mouth. Take by mouth as nee ded. ubidecarenone 100 mg oral capsule (20 sources) End: 03-01-2025 coenzyme Q10 (CO Q-10) 100 mg cap capsule Take 100 mg by mouth once daily. 03/01/2025 Discontinued coenzyme Q10 (CO Q-10) 100 mg cap capsule Take 100 mg by mouth two times a day. Active take 1 capsule by mo uth once in the morning coenzyme Q10 30 mg capsule Take 1 capsule (30 mg total) by mouth in the morning. Active End: 05-16-2024 take 1 capsule by mouth once daily ubidecarenone Q-10 (COENZYME Q-10) 10 mg cap Take 10 mg by mouth once daily. 05/16/2024 Discontinued (Erroneous entry) Comment on above: Take 10 mg by mouth once daily. vitamin b12 0.1 mg oral tablet (7 [...] Active Comment on above: Take by mouth. zinc sulfate 220 mg oral capsule (7 sources) Start: 09-25-2024 End: 03-01-2025 take 1 capsule by mouth once daily zinc sulfate 220 mg (50 mg zinc) capsule Take 1 capsule by mouth once daily. 09/25/2024 03/01/2025 Discontinued Problems Active Problems Problem Classification Problem Date [...] angina pectoris] Onset: 11-17-2012 Chronic Conduction disorders (20 sources) Presence of automatic (implantable) cardiac defibrillator; Translations: [Patient encounter status] Onset: 07-10-2022 08-17-2024 Chronic Congestive heart failure; nonhypertensive (20 sources) Acute systolic heart failure; Translations: [Acute systolic (congestive) heart failure] Onset: 05-01-2012 Chronic Coronary atherosclerosis and other heart disease (20 sources) Coronary atherosclerosis; Translations: [Atherosclerotic heart disease of [place] coronary artery without angina pectoris] Onset: 04-28-2012 [...] [Essential (primary) hypertension] Onset: 03-18-2024 10-30-2023 Chronic Heart valve disorders (20 sources) [...] artery] Onset: 05-01-2012 09-11-2021 Chronic Other aftercare (1 source) Long-term current use of anticoagulant; Translations: [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 (current) use of anticoagulants] 03-01-2025 Episodic Other and ill-defined heart disease (20 sources) Mural thrombus of left ventricle; Translations: [Intracardiac thrombosis, not elsewhere classified] Onset: 05-06-2024 05-06-2024 Chronic Other circulatory disease (2 sources) Presence of other cardiac implants and grafts; Translations: [S/P mitral valve clip implantation] Onset: 03-30-2024 Chronic Other connective tissue disease (4 sources) Pain in toe; Translations: [Pain in right toe(s)] 12-03-2024 Episodic Other lower respiratory disease (1 source) Other forms of dyspnea; Translations: [SANTILLAN (dyspnea on exertion)] Onset: 05-06-2024 Episodic Other male genital disorders (20 sources) Erectile dysfunction co-occurrent and due to arterial insufficiency; Translations: [Erectile dysfunction due to arterial insufficiency] Onset: 09-28-2019 10-12-2019 Chronic Other screening for suspected conditions (not mental disorders or infectious disease) (1 source) Blood chemistry abnormal; Translations: [Abnormal finding of blood chemistry, unspecified] Episodic Other skin disorders (2 sources) Dystrophia unguium; Translations: [Nail dystrophy] 12-03-2024 Episodic Other upper respiratory infections (1 source) Sore throat symptom; Translations: [Acute pharyngitis, unspecified] 12-26-2023 Episodic Adelina-; endo-; and myocarditis; cardiomyopathy (except that caused by tuberculosis or sexually transmitted disease) (20 sources) Cardiomyopathy; Translations: [Other cardiomyopathies] Onset: 05-09-2024 01-10-2024 Chronic Peripheral and visceral atherosclerosis (20 sources) Peripheral vascular disease; Translations: [Peripheral vascular disease, unspecified] Onset: 11-17-2012 04-26-2023 Chronic Thyroid disorders (19 sources) Hypothyroidism; Translations: [Hypothyroidism, unspecified] Onset: 05-18-2022 [...] Classification Problem Date Documented Da te Episodic/Chronic Abdominal pain (11 sources) Indigestion; Translations: [Epigastric pain] Onset: 5 09-22-2024 Episodic Acute and unspecified renal failure (14 sources) Acute kidney failure, unspecified; Translations: [Acute renal failure syndrome] Onset: 2 09-22-2024 Episodic Acute myocardial infarction (20 sources) True posterior [...] Chronic Coronary atherosclerosis and other heart disease (5 sources) Presence of aortocoronary bypass graft; Translations: [Presence of coronary angioplasty implant and graft] Onset: 2 Episodic Diabetes mellitus without complication (20 sources) Metabolic stress hyperglycemia; Translations: [Hyperglycemia, unspecified] Onset: 2 Resolved: 2 Episodic Fluid and electrolyte disorders (20 sources) Dehydration; Translations: [Metabolic acidosis] Onset: 2 09-22-2024 Episodic Gastrointestinal hemorrhage (20 sources) Gastrointestinal hemorrhage, unspecified; Translations: [Gastrointestinal hemorrhage] Onset: 4 05-11-2024 Episodic Malaise and fatigue (20 sources) Other fatigue; Translations: [Weakness] Onset: 2 Episodic Mood disorders (20 sources) Mood disorders Onset: 1 08-17-2021 Other aftercare (1 source) Other watermelon inspector (current) drug therapy; Translations: [OTH CUSTODIAL CURRENT DRUG THERAPY] Onset: 2 Episodic Other aftercare (1 source) 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 (current) use of anticoagulants; Translations: [NURSING TECHN CURRNT USE ANTICOAGULANTS] Onset: 2 Episodic Other aftercare (11 sources) Under care of palliative care physician; Translations: [Encounter for palliative care] Onset: 5 09-22-2024 Episodic Other circulatory disease (3 sources) Personal [...] [Other forms of dyspnea] 02-04-2024 Episodic Other nervous system disorders (20 sources) Postoperative pain ; Translations: [Other acute postprocedural pain] Onset: 2 Resolved: 2 Episodic Other nervous system disorders (11 sources) Taste sense altered; Translations: [Parageusia] Onset: 5 09-22-2024 Episodic Other nervous system disorders (1 source) Other abnormalities of gait and mobility; Translations: [Other abnormalities of gait and mobility] Onset: 4 Episodic Pleurisy; pneumothorax; pulmonary collapse (20 sources) [...] [Syncope and collapse] Onset: 9 03-18-2019 Episodic Unclassified (2 sources) Patient encounter status 03-01-2025 Results Test Name Value Interpretation Reference Range Facility [facility] 03-02-2025 CNPN Normal [facility] CARDIAC IMPLANTABLE DEVICE C HECKOrdered By: Nj Wei on 03-01-2025 Atrial Tachy Statistic AT/AF [place] Percent 1 [facility] Work Phone: Battery Status MONIKA [facility] Work Phone: Bj Setting AT Mode Switch Rate 170 [facility] Work Phone: Bj Setting Lower Rate Limit 50 [facility] Work Phone: Bj Setting Maximum Sensor Rate 130 [facility] Work Phone: Bj Setting Maximum Tracking Rate 130 [facility] Work Phone: Bj Setting Mode (NBG Code) DDDR [facility] Work Phone: Bj Setting PAV Delay 200 [facility] Work Phone: Bj Setting ABDULLAHI Delay 170 [facility] Work Phone: Bj Statistic RA Percent Paced 1 [facility] Work Phone: Bj Statistic RV Percent Paced 1 [facility] Work Phone: Date Time Interrogation Session [facility] Work Phone: Implantable Lead Implant Date [id number] [facility] Work Phone: [phone] Implantable Lead Implant Date [id number] [facility] Work Phone: [phone] Implantable Lead Location Right Atrium [facility] Work Phone: [phone] Implantable Lead Location Right Ventricle [facility] Work Phone: [phone] Implantable Lead Model 7741 [employer] MRI [facility] Work Phone: [phone] Implantable Lead Model 675 [facility] Work Phone: [phone] Implantable Lead Serial Number [id number] [facility] Work Phone: [phone] Implantable Lead Serial Number [id number] [facility] Work Phone: [phone] Implantable Pulse Generator Implant Date [id number] [facility] Work Phone: [phone] Implantable Pulse Generator [employer] [facility] Work Phone: [phone] Implantable Pulse Generator Model D142 [facility] Work Phone: [phone] Implantable Pulse Generator Serial Number [id number] [facility] Work Phone: [phone] Implantable Pulse Generator Type Defibrillator [facility] Work Phone: [phone] Lead Channel Impedance Value 647 [facility] Work Phone: [phone] Lead Channel Impedance Value 375 [facility] Work Phone: [phone] Lead Channel Measurements Date and Time 2025-03-01 [facility] Work Phone: [phone] Lead Channel Pacing Threshold Amplitude 0.4 [facility] Work Phone: [phone] Lead Channel Pacing Threshold Pulse Width 0.5 [facility] Work Phone: [phone] Lead Channel Sensing Intrinsic Amplitude 1.8 [facility] Work Phone: [phone] Lead Channel Sensing Intrinsic Amplitude 18.7 [facility] Work Phone: [phone] Lead Channel Setting Sensing Sensitivity 0.25 [facility] Work Phone: [phone] Lead Channel Setting Sensing Sensitivity 0.3 [facility] Work Phone: [phone] Rate 1 240 [facility] Work Phone: [phone] Rate 1 200 [facility] Work Phone: [phone] Rate 1 175 [facility] Work Phone: [phone] Shock Measured Impedance 42 [facility] Work Phone: [phone] Therapy Statistic Recent ATP Delivered 1 [facility] Work Phone: [phone] Therapy Statistic Recent Shocks Aborted 0 [facility] Work Phone: [phone] Therapy Statistic Recent Shocks Delivered 0 [facility] Work Phone: [phone] Zone ID 1 [facility] Work Phone: [phone] Zone ID 2 [facility] Work Phone: [phone] Zone ID 3 [facility] Work Phone: [phone] Zone Setting Type Category VF [facility] Work Phone: [phone] Zone Setting Type Category [place] [facility] Work Phone: [phone] Zone Setting Type Category VT1 [facility] Work Phone: [phone] [facility] Work Phone: [phone] CARDIAC IMPLANTABLE DEVICE Marisa Sainz 03-01-2025 Nj Wei M D - 03/01/2025 In-Office Device Evaluation OPD with Dr. Wei * Device type: BST dual lead ICD * Presenting Rhythm: AF/VS-AIR MOVING TECHNICIAN * Underlying Rhythm: AF with variable ventricular [...] or infection. * Other Diagnostics: *AP 1%, AIR MOVING TECHNICIAN <1%, AT/AF burden 1% (however likely higher d/t DDIR programming)* Tachycardia: AF * Stored EGMs are consistent with or suggestive of Atrial Fibrillation, intermittent RVR observed on stored episodes * AT/AF [place]: 1% * OAC: Eliquis Appropriate [place] Therapy: [...] Docket/PDF found below under Scanned Documents . [facility] CNOVon 03-01-2025 CNOV Normal [facility] No Panel InformationOrdered By: Nj Wei on 03-01-2025 Implantable Lead Connection Status Connected [facility] Work Phone: Implantable Lead [employer] [facility] Work Phone: Lead Channel Setting Pacing Amplitude 2 [facility] Work Phone: Lead Channel Setting Pacing Pulse Width 0.5 [facility] Work Phone: Therapies [phone] [facility] Work Phone: Zone Setting Status On [facility] Work Phone: US CAROTID ARTERIES DIANNE VAS LABon 03-01-2025 US CAROTID ARTERIES DIANNE VAS LAB Normal [facility] BASIC METABOLIC PANELon Anion gap [Moles/Vol] 12 mmol/L Normal 5-15 [facility] Comment on above: Performed By: #### C RODO, PINR, 67784-5, CMP #### [facility] ([id number]) [address] [place] [address], [place] [address] Calcium [Mass/Vol] 8.5 mg/dL Normal 8.5-10.5 [facility] Comment on above: Performed By: #### C RODO PINR, 92247-9, CMP #### [facility] ([id number]) [address] [place] [address] 51547 Chloride [Moles/Vol] 101 mmol/L Normal 98-109 [facility] Comment on above: Performed By: #### C BCA, PINR, 30489-4, CMP #### [facility] ([id number]) [address] [place] [address] 22449 CO2 [Moles/Vol] 23 mmol/L Normal 22-32 [facility] Comment on above: Performed By: #### C BCA, PINR, 83902-0, CMP #### [facility] ([id number]) [address] [place] [address] 48965 Creatinine [Mass/Vol] 2.32 mg/dL High 0.70-1.20 [facility] Comment on above: Result Comment: METH OD TRACEABLE TO IDMS STANDARD Performed By: #### C BCA, PINR, 69166-0, CMP #### [facility] ([id number]) [address] [place] [address] 41699 GFR/1.73 sq M.predicted among non-blacks MDRD (S/P/Bld) [Vol rate/Area] 27 mL/min/{1.73_m2} Low >=60 [facility] Comment on above: Result Comment: eGFR not reported due to non-numeric value for Creatinine. Reported eGFR is based on the CKD-EPI 2021 equation that does not use a race coefficient. Performed By: #### C BCA, PINR, 56248-8, CMP #### [facility] ([id number]) [address] [place] [address] 70336 Glucose [Mass/Vol] 154 mg/dL High 65-99 [facility] Comment on above: Performed By: #### C BCA, PINR, 63312-0, CMP #### [facility] ([id number]) [address] [place] [address] 12825 Potassium [Moles/Vol] 3.2 mmol/L Low 3.5-5.0 [facility] Comment on above: Performed By: #### C BCA, PINR, 97819-2, CMP #### [facility] ([id number]) [address] [place] [address] 45961 Sodium [Moles/Vol] 136 mmol/L Normal 134-146 [facility] Comment on above: Performed By: #### C BCA, PINR, 15665-4, CMP #### [facility] ([id number]) [address] [place] [address] 01086 Urea nitrogen [Mass/Vol] 47 mg/dL High 5-27 [facility] Comment on above: Performed By: #### C BCA, PINR, 34045-9, CMP #### [facility] ([id number]) [address] [place] [address] 83263 CBC WITH AUTO DIFFERENTIALon 02-22-2025 BASOPHILS ABSOLUTE COUNT (10*3/UL) BY AUTOMATED COUNT 0.0 10*3/uL Normal 0.0-0.2 [facility] Comment on above: Performed By: #### C BCA, PINR, 08266-0, CMP #### [facility] ([id number]) [address] [place] [address] 55486 BASOPHILS RELATIVE PERCENT BY AUTOMATED COUNT 0.7 % Normal [facility] Comment on above: Performed By: #### C BCA, PINR, 22402-6, CMP #### [facility] ([id number]) [address] [place] [address] 40238 CELLAVISION DIFFERENTIAL TYPE AUTOMATED DIFFERENTIAL Normal [facility] Comment on above: Performed By: #### C BCA, PINR, 05822-0, CMP #### [facility] ([id number]) [address] [place] [address] 21586 Eosinophils (Bld) [#/Vol] 0.3 10*3/uL Normal 0.0-0.4 [facility] Comment on above: Performed By: #### C PHILLIP KOEHLERR, 73602-7, CMP #### [facility] ([id number]) [address] [place] [address] 35611 EOSINOPHILS RELATIVE PERCENT BY AUTOMATED COUNT 7.5 % Normal [facility] Comment on above: Performed By: #### C RODO, PINR, 72497-2, CMP #### [facility] ([id number]) [address] [place] [address] 31931 Erythrocyte distribution width (RBC) [Ratio] 17.7 % High 11.5-15 [facility] Comment on above: Performed By: #### C RODO PINR, 81703-4, CMP #### [facility] ([id number]) [address] [place] [address] 98397 Hematocrit (Bld) [Volume fraction] 34.6 % Low 39-50 [facility] Comment on above: Performed By: #### aMrisa KOEHLER, PINR, 28870-1, CMP #### [facility] ([id number]) [address] [place] [address] 81234 Hemoglobin (Bld) [Mass/Vol] 11.3 g/dL Low 13-17 [facility] Comment on above: Performed By: #### C RODO, PINR, 45892-0, CMP #### [facility] ([id number]) [address] [place] [address] 72964 LYMPHOCYTES ABSOLUTE COUNT (10*3/UL) BY AUTOMATED COUNT 0.4 10*3/uL Low 1.0-3.5 [facility] Comment on above: Performed By: #### Marisa KOEHLER, PINR, 17932-9, CMP #### [facility] ([id number]) [address] [place] [address] 53924 LYMPHOCYTES RELATIVE PERCENT BY AUTOMATED COUNT 10.4 % Normal [facility] Comment on above: Performed By: #### Marisa KOEHLER PINR, 00605-1, CMP #### [facility] ([id number]) [address] [place] [address] 70684 MCH (RBC) [Entitic mass] 31.2 pg Normal 27-34 [facility] Comment on above: Performed By: #### Marisa KOEHLER PINR, 48414-2, CMP #### [facility] ([id number]) [address] [place] [address] 73249 MCHC (RBC) [Mass/Vol] 32.7 g/dL Normal 32-36 [facility] Comment on above: Performed By: #### Marisa KOEHLER, PINR, 71088-7, CMP #### [facility] ([id number]) [address] [place] [address] 84138 MCV (RBC) [Entitic vol] 95 fL Normal 80-100 [facility] Comment on above: Performed By: #### Marisa KOEHLER, PINR, 73207-9, CMP #### [facility] ([id number]) [address] [place] [address] 93120 MONOCYTES ABSOLUTE COUNT (10*3/UL) BY AUTOMATED COUNT 0.4 10*3/uL Normal 0.0-0.9 [facility] Comment on above: Performed By: #### Marisa KOEHLER, PINR, 09878-8, CMP #### [facility] ([id number]) [address] [place] [address] 60447 MONOCYTES RELATIVE PERCENT BY AUTOMATED COUNT 11.7 % Normal [facility] Comment on above: Performed By: #### Marisa KOEHLER, PINR, 39424-3, CMP #### [facility] ([id number]) [address] [place] [address] 81885 NEUTROPHILS ABSOLUTE COUNT BY AUTOMATED COUNT 2.6 10*3/uL Normal 1.5-6.6 [facility] Comment on above: Performed By: #### Marisa KOEHLER, PINR, 93104-5, CMP #### [facility] ([id number]) [address] [place] [address] 28305 NEUTROPHILS RELATIVE PERCENT BY AUTOMATED COUNT 69.7 % Normal [facility] Comment on above: Performed By: #### Marisa KOEHLER, PINR, 05688-8, CMP #### [facility] ([id number]) [address] [place] [address] 20666 Platelet mean volume (Bld) [Entitic vol] 8.4 fL Normal 7-12 [facility] Comment on above: Performed By: #### Marisa KOEHLER, PINR, 08178-3, CMP #### [facility] ([id number]) [address] [place] [address] 42620 Platelets (Bld) [#/Vol] 139 10*3/uL Low 150-450 [facility] Comment on above: Performed By: #### Marisa KOEHLER, PINR, 53429-1, CMP #### [facility] ([id number]) [address] [place] [address] 28373 RBC COUNT 3.63 X10E12/L Low 4.1-5.7 [facility] Comment on above: Performed By: #### Marisa KOEHLER, PINR, 70099-6, CMP #### [facility] ([id number]) [address] [place] [address] 77245 WBC (Bld) [#/Vol] 3.8 10*3/uL Low 4-11 [facility] Comment on above: Performed By: #### Marisa KOEHLER, PINR, 54175-8, CMP #### [facility] ([id number]) [address] [place] [address] 61715 CBC WITH AUTO DIFFERENTIALon 02-09-2025 BASOPHILS ABSOLUTE COUNT (10*3/UL) BY AUTOMATED COUNT 0.0 10*3/uL Normal 0.0-0.2 [facility] Comment on above: Performed By: #### C PHILLIP KOEHLERR, 02226-5, CMP #### [facility] ([id number]) [address] [place] [address] 71168 BASOPHILS RELATIVE PERCENT BY AUTOMATED COUNT 0.5 % Normal [facility] Comment on above: Performed By: #### Marisa KOEHLER PINR, 17916-4, CMP #### [facility] ([id number]) [address] [place] [address] 60264 CELLAVISION DIFFERENTIAL TYPE AUTOMATED DIFFERENTIAL Normal [facility] Comment on above: Performed By: #### Marisa KOEHLER PINR, 19294-9, CMP #### [facility] ([id number]) [address] [place] [address] 76153 Eosinophils (Bld) [#/Vol] 0.3 10*3/uL Normal 0.0-0.4 [facility] Comment on above: Performed By: #### KATHERINE Cunningham BCA, 77303-5, CMP #### [facility] ([id number]) [address] [place] [address] 11730 EOSINOPHILS RELATIVE PERCENT BY AUTOMATED COUNT 6.3 % Normal [facility] Comment on above: Performed By: #### Marisa KOEHLER PINR, 36215-2, CMP #### [facility] ([id number]) [address] [place] [address] 40194 Erythrocyte distribution width (RBC) [Ratio] 17.6 % High 11.5-15 [facility] Comment on above: Performed By: #### Marisa KOEHLER PINR, 56226-8, CMP #### [facility] ([id number]) [address] [place] [address] 29596 Hematocrit (Bld) [Volume fraction] 35.2 % Low 39-50 [facility] Comment on above: Performed By: #### C RODO, PINR, 87566-5, CMP #### [facility] ([id number]) [address] [place] [address] 56007 Hemoglobin (Bld) [Mass/Vol] 11.7 g/dL Low 13-17 [facility] Comment on above: Performed By: #### C RODO, PINR, 96960-8, CMP #### [facility] ([id number]) [address] [place] [address] 13554 LYMPHOCYTES ABSOLUTE COUNT (10*3/UL) BY AUTOMATED COUNT 0.7 10*3/uL Low 1.0-3.5 [facility] Comment on above: Performed By: #### C RODO, PINR, 16384-8, CMP #### [facility] ([id number]) [address] [place] [address] 51780 LYMPHOCYTES RELATIVE PERCENT BY AUTOMATED COUNT 16.4 % Normal [facility] Comment on above: Performed By: #### C RODO, PINR, 35250-1, CMP #### [facility] ([id number]) [address] [place] [address] 22591 MCH (RBC) [Entitic mass] 31.3 pg Normal 27-34 [facility] Comment on above: Performed By: #### C RODO, PINR, 87493-7, CMP #### [facility] ([id number]) [address] [place] [address] 02594 MCHC (RBC) [Mass/Vol] 33.3 g/dL Normal 32-36 [facility] Comment on above: Performed By: #### C RODO, PINR, 88645-1, CMP #### [facility] ([id number]) [address] [place] [address] 71419 MCV (RBC) [Entitic vol] 94 fL Normal 80-100 [facility] Comment on above: Performed By: #### C BCA, PINR, 58680-5, CMP #### [facility] ([id number]) [address] [place] [address] 45135 MONOCYTES ABSOLUTE COUNT (10*3/UL) BY AUTOMATED COUNT 0.6 10*3/uL Normal 0.0-0.9 [facility] Comment on above: Performed By: #### C BCA, PINR, 03178-7, CMP #### [facility] ([id number]) [address] [place] [address] 88437 MONOCYTES RELATIVE PERCENT BY AUTOMATED COUNT 14.1 % Normal [facility] Comment on above: Performed By: #### C BCA, PINR, 42960-5, CMP #### [facility] ([id number]) [address] [place] [address] 59698 NEUTROPHILS ABSOLUTE COUNT BY AUTOMATED COUNT 2.6 10*3/uL Normal 1.5-6.6 [facility] Comment on above: Performed By: #### C BCA, PINR, 74756-5, CMP #### [facility] ([id number]) [address] [place] [address] 36153 NEUTROPHILS RELATIVE PERCENT BY AUTOMATED COUNT 62.7 % Normal [facility] Comment on above: Performed By: #### C BCA, PINR, 95607-4, CMP #### [facility] ([id number]) [address] [place] [address] 64900 Platelet mean volume (Bld) [Entitic vol] 8.1 fL Normal 7-12 [facility] Comment on above: Performed By: #### C BCA, PINR, 75465-4, CMP #### [facility] ([id number]) [address] [place] [address] 89474 Platelets (Bld) [#/Vol] 161 10*3/uL Normal 150-450 [facility] Comment on above: Performed By: #### C BCA, PINR, 68790-7, CMP #### [facility] ([id number]) [address] [place] [address] 52447 RBC COUNT 3.74 X10E12/L Low 4.1-5.7 [facility] Comment on above: Performed By: #### C BCA, PINR, 53407-3, CMP #### [facility] ([id number]) [address] [place] [address] 57960 WBC (Bld) [#/Vol] 4.2 10*3/uL Normal 4-11 [facility] Comment on above: Performed By: #### C BCA, PINR, 82165-0, CMP #### [facility] ([id number]) [address] [place] [address] 52453 COMPREHENSIVE METABOLIC PANE [facility] 02-09-2025 Albumin [Mass/Vol] 3.3 g/dL Normal 3.2-5.3 [facility] Comment on above: Performed By: #### C BCA, PINR, 16758-9, CMP #### [facility] ([id number]) [address] [place] [address] 27647 ALP [Catalytic activity/Vol] 117 U/L Normal 39-130 [facility] Comment on above: Performed By: #### C BCA, PINR, 02735-1, CMP #### [facility] ([id number]) [address] [place] [address] 59310 ALT [Catalytic activity/Vol] 11 U/L Normal <=40 [facility] Comment on above: Performed By: #### C BCA, PINR, 44835-8, CMP #### [facility] ([id number]) [address] [place] [address] 37422 Anion gap [Moles/Vol] 4 mmol/L Low 5-15 [facility] Comment on above: Performed By: #### C BCA, PINR, 87727-9, CMP #### [facility] ([id number]) [address] [place] [address] 70000 AST [Catalytic activity/Vol] 20 U/L Normal <=41 [facility] Comment on above: Performed By: #### C BCA, PINR, 22774-6, CMP #### [facility] ([id number]) [address] [place] [address] 67813 Bilirubin [Mass/Vol] 1.1 mg/dL Normal 0.3-1.2 [facility] Comment on above: Performed By: #### C BCA, PINR, 85646-0, CMP #### [facility] ([id number]) [address] [place] [address] 79872 Calcium [Mass/Vol] 8.6 mg/dL Normal 8.5-10.5 [facility] Comment on above: Performed By: #### C BCA, PINR, 98656-1, CMP #### [facility] ([id number]) [address] [place] [address] 92989 Chloride [Moles/Vol] 102 mmol/L Normal 98-109 [facility] Comment on above: Performed By: #### C BCA, PINR, 80286-2, CMP #### [facility] ([id number]) [address] [place] [address] 64901 CO2 [Moles/Vol] 27 mmol/L Normal 22-32 [facility] Comment on above: Performed By: #### C BCA, PINR, 26348-8, CMP #### [facility] ([id number]) [address] [place] [address] 20790 Creatinine [Mass/Vol] 2.18 mg/dL High 0.70-1.20 [facility] Comment on above: Result Comment: METH OD TRACEABLE TO IDMS STANDARD Performed By: #### C BCA, PINR, 85927-9, CMP #### [facility] ([id number]) [address] [place] [address] 12543 GFR/1.73 sq M.predicted among non-blacks MDRD (S/P/Bld) [Vol rate/Area] 29 mL/min/{1.73_m2} Low >=60 [facility] Comment on above: Result Comment: eGFR not reported due to non-numeric value for Creatinine. Reported eGFR is based on the CKD-EPI 2020 equation that does not use a race coefficient. Performed By: #### C BCA, PINR, 68200-7, CMP #### [facility] ([id number]) [address] [place] [address] 37019 Glucose [Mass/Vol] 88 mg/dL Normal 65-99 [facility] Comment on above: Performed By: #### C BCA, PINR, 14631-4, CMP #### [facility] ([id number]) [address] [place] [address] 56454 Potassium [Moles/Vol] 3.8 mmol/L Normal 3.5-5.0 [facility] Comment on above: Performed By: #### C RODO, PINR, 89647-3, CMP #### [facility] ([id number]) [address] [place] [address] 43092 Protein [Mass/Vol] 6.8 g/dL Normal 6.0-8.0 [facility] Comment on above: Performed By: #### C BCA, PINR, 26606-9, CMP #### [facility] ([id number]) [address] [place] [address] 36316 Sodium [Moles/Vol] 133 mmol/L Low 134-146 [facility] Comment on above: Performed By: #### C BCA, PINR, 24496-4, CMP #### [facility] ([id number]) [address] [place] [address] 11923 Urea nitrogen [Mass/Vol] 49 mg/dL High 5-27 [facility] Comment on above: Performed By: #### C BCA, PINR, 00231-4, CMP #### [facility] ([id number]) [address] [place] [address] 73775 CBC WITH AUTO DIFFERENTIALon 02-01-2025 BASOPHILS ABSOLUTE COUNT (10*3/UL) BY AUTOMATED COUNT 0.1 10*3/uL Normal 0.0-0.2 [facility] Comment on above: Performed By: #### C BCA, PINR, 28430-5, CMP #### [facility] ([id number]) [address] [place] [address] 88158 BASOPHILS RELATIVE PERCENT BY AUTOMATED COUNT 1.2 % Normal [facility] Comment on above: Performed By: #### Marisa BCA, PINR, 37491-9, CMP #### [facility] ([id number]) [address] [place] [address] 48788 CELLAVISION DIFFERENTIAL TYPE AUTOMATED DIFFERENTIAL Normal [facility] Comment on above: Performed By: #### Marisa KOEHLER, PINR, 81433-0, CMP #### [facility] ([id number]) [address] [place] [address] 70898 Eosinophils (Bld) [#/Vol] 0.2 10*3/uL Normal 0.0-0.4 [facility] Comment on above: Performed By: #### Marisa BCA, PINR, 82197-2, CMP #### [facility] ([id number]) [address] [place] [address] 69837 EOSINOPHILS RELATIVE PERCENT BY AUTOMATED COUNT 3.5 % Normal [facility] Comment on above: Performed By: #### Marisa BCA, PINR, 17927-9, CMP #### [facility] ([id number]) [address] [place] [address] 58913 Erythrocyte distribution width (RBC) [Ratio] 17.6 % High 11.5-15 [facility] Comment on above: Performed By: #### C RODO PINR, 53590-3, CMP #### [facility] ([id number]) [address] [place] [address] 08032 Hematocrit (Bld) [Volume fraction] 35.9 % Low 39-50 [facility] Comment on above: Performed By: #### Marisa KOEHLER PINR, 85826-5, CMP #### [facility] ([id number]) [address] [place] [address] 56028 Hemoglobin (Bld) [Mass/Vol] 12.1 g/dL Low 13-17 [facility] Comment on above: Performed By: #### Marisa KOEHLER PINR, 64969-7, CMP #### [facility] ([id number]) [address] [place] [address] 48641 LYMPHOCYTES ABSOLUTE COUNT (10*3/UL) BY AUTOMATED COUNT 0.6 10*3/uL Low 1.0-3.5 [facility] Comment on above: Performed By: #### PHILLIP Cunningham BCAR, 71072-2, CMP #### [facility] ([id number]) [address] [place] [address] 54669 LYMPHOCYTES RELATIVE PERCENT BY AUTOMATED COUNT 12.2 % Normal [facility] Comment on above: Performed By: #### Marisa KOEHLER PINR, 93666-6, CMP #### [facility] ([id number]) [address] [place] [address] 32512 MCH (RBC) [Entitic mass] 31.4 pg Normal 27-34 [facility] Comment on above: Performed By: #### Marisa KOEHLER PINR, 33804-8, CMP #### [facility] ([id number]) [address] [place] [address] 12531 MCHC (RBC) [Mass/Vol] 33.6 g/dL Normal 32-36 [facility] Comment on above: Performed By: #### C RODO, PINR, 53918-3, CMP #### [facility] ([id number]) [address] [place] [address] 95401 MCV (RBC) [Entitic vol] 94 fL Normal 80-100 [facility] Comment on above: Performed By: #### C RODO, PINR, 43611-4, CMP #### [facility] ([id number]) [address] [place] [address] 17738 MONOCYTES ABSOLUTE COUNT (10*3/UL) BY AUTOMATED COUNT 0.6 10*3/uL Normal 0.0-0.9 [facility] Comment on above: Performed By: #### C RODO, PINR, [id number], CMP #### [facility] ([id number]) [address] [place] [address] 70016 MONOCYTES RELATIVE PERCENT BY AUTOMATED COUNT 12.5 % Normal [facility] Comment on above: Performed By: #### Marisa KOEHLER, PINR, [id number], CMP #### [facility] ([id number]) [address] [place] [address] 24951 NEUTROPHILS ABSOLUTE COUNT BY AUTOMATED COUNT 3.3 10*3/uL Normal 1.5-6.6 [facility] Comment on above: Performed By: #### Marisa KOEHLER, PINR, [id number], CMP #### [facility] ([id number]) [address] [place] [address] 65292 NEUTROPHILS RELATIVE PERCENT BY AUTOMATED COUNT 70.6 % Normal [facility] Comment on above: Performed By: #### Marisa KOEHLER, PINR, [id number], CMP #### [facility] ([id number]) [address] [place] [address] 72638 Platelet mean volume (Bld) [Entitic vol] 8.3 fL Normal 7-12 [facility] Comment on above: Performed By: #### C RODO, PINR, [id number], CMP #### [facility] ([id number]) [address] [place] [address] 22314 Platelets (Bld) [#/Vol] 156 10*3/uL Normal 150-450 [facility] Comment on above: Performed By: #### C BCA, PINR, [id number], CMP #### [facility] ([id number]) [address] [place] [address] 33671 RBC COUNT 3.84 X10E12/L Low 4.1-5.7 [facility] Comment on above: Performed By: #### C BCA, PINR, [id number], CMP #### [facility] ([id number]) [address] [place] [address] 51881 WBC (Bld) [#/Vol] 4.7 10*3/uL Normal 4-11 [facility] Comment on above: Performed By: #### C BCA, PINR, [id number], CMP #### [facility] ([id number]) [address] [place] [address] 85691 COMPREHENSIVE METABOLIC PANE [facility] 02-01-2025 Albumin [Mass/Vol] 3.3 g/dL Normal 3.2-5.3 [facility] Comment on above: Performed By: #### C BCA, PINR, [id number], CMP #### [facility] ([id number]) [address] [place] [address] 05186 ALP [Catalytic activity/Vol] 103 U/L Normal 39-130 [facility] Comment on above: Performed By: #### C BCA, PINR, [id number], CMP #### [facility] ([id number]) [address] [place] [address] 08633 ALT [Catalytic activity/Vol] 11 U/L Normal <=40 [facility] Comment on above: Performed By: #### C BCA, PINR, 92442-5, CMP #### [facility] ([id number]) [address] [place] [address] 73596 Anion gap [Moles/Vol] 10 mmol/L Normal 5-15 [facility] Comment on above: Performed By: #### C BCA, PINR, 98622-0, CMP #### [facility] ([id number]) [address] [place] [address] [place] [address] AST [Catalytic activity/Vol] 19 U/L Normal <=41 [facility] Comment on above: Performed By: #### C BCA, PINR, 30104-1, CMP #### [facility] ([id number]) [address] [place] [address] 35080 Bilirubin [Mass/Vol] 1.3 mg/dL High 0.3-1.2 [facility] Comment on above: Performed By: #### C BCA, PINR, 93265-6, CMP #### [facility] ([id number]) [address] [place] [address] 99263 Calcium [Mass/Vol] 8.1 mg/dL Low 8.5-10.5 [facility] Comment on above: Performed By: #### C BCA, PINR, 88159-7, CMP #### [facility] ([id number]) [address] [place] [address] [place] [address] Chloride [Moles/Vol] 103 mmol/L Normal 98-109 [facility] Comment on above: Performed By: #### C BCA, PINR, 57998-5, CMP #### [facility] ([id number]) [address] [place] [address] [place] [address] CO2 [Moles/Vol] 21 mmol/L Low 22-32 [facility] Comment on above: Performed By: #### C BCA, PINR, 70248-6, CMP #### [facility] ([id number]) [address] [place] [address] 41774 Creatinine [Mass/Vol] 2.47 mg/dL High 0.70-1.20 [facility] Comment on above: Result Comment: METH OD TRACEABLE TO IDMS STANDARD Performed By: #### C RODO PINR, 86747-3, CMP #### [facility] ([id number]) [address] [place] [address] 87024 GFR/1.73 sq M.predicted among non-blacks MDRD (S/P/Bld) [Vol rate/Area] 25 mL/min/{1.73_m2} Low >=60 [facility] Comment on above: Result Comment: eGFR not reported due to non-numeric value for Creatinine. Reported eGFR is based on the CKD-EPI 2020 equation that does not use a race coefficient. Performed By: #### C RODO PINR, 06015-3, CMP #### [facility] ([id number]) [address] [place] [address] 04386 Glucose [Mass/Vol] 100 mg/dL High 65-99 [facility] Comment on above: Performed By: #### C RODO PINR, 87180-4, CMP #### [facility] ([id number]) [address] [place] [address] 15683 Potassium [Moles/Vol] 4.1 mmol/L Normal 3.5-5.0 [facility] Comment on above: Performed By: #### C BCA, PINR, 51377-9, CMP #### [facility] ([id number]) [address] [place] [address] 44311 Protein [Mass/Vol] 7.0 g/dL Normal 6.0-8.0 [facility] Comment on above: Performed By: #### C BCA, PINR, 70154-9, CMP #### [facility] ([id number]) [address] [place] [address] 20825 Sodium [Moles/Vol] 134 mmol/L Normal 134-146 [facility] Comment on above: Performed By: #### C RODO, PINR, 86641-4, CMP #### [facility] ([id number]) [address] [place] [address] 85429 Urea nitrogen [Mass/Vol] 50 mg/dL High 5-27 [facility] Comment on above: Performed By: #### C RODO, PINR, 14090-6, CMP #### [facility] ([id number]) [address] [place] [address] 12710 CNPNon 01-26-2025 CNPN Normal [facility] CBC WITH AUTO DIFFERENTIALon 01-25-2025 BASOPHILS ABSOLUTE COUNT (10*3/UL) BY AUTOMATED COUNT 0.0 10*3/uL Normal 0.0-0.2 [facility] Comment on above: Performed By: #### C RODO, PINR, 71214-3, CMP #### [facility] ([id number]) [address] [place] [address] 59690 BASOPHILS RELATIVE PERCENT BY AUTOMATED COUNT 0.5 % Normal [facility] Comment on above: Performed By: #### C RODO, PINR, 96850-1, CMP #### [facility] ([id number]) [address] [place] [address] 29613 CELLAVISION DIFFERENTIAL TYPE AUTOMATED DIFFERENTIAL Normal [facility] Comment on above: Performed By: #### C BCA, PINR, 05308-1, CMP #### [facility] ([id number]) [address] [place] [address] 78308 Eosinophils (Bld) [#/Vol] 0.3 10*3/uL Normal 0.0-0.4 [facility] Comment on above: Performed By: #### C RODO, PINR, 99715-0, CMP #### [facility] ([id number]) [address] [place] [address] 13273 EOSINOPHILS RELATIVE PERCENT BY AUTOMATED COUNT 6.3 % Normal [facility] Comment on above: Performed By: #### Marisa KOEHLER, PINR, 56298-7, CMP #### [facility] ([id number]) [address] [place] [address] 12197 Erythrocyte distribution width (RBC) [Ratio] 17.5 % High 11.5-15 [facility] Comment on above: Performed By: #### C RODO, PINR, 55845-7, CMP #### [facility] ([id number]) [address] [place] [address] 59186 Hematocrit (Bld) [Volume fraction] 33.7 % Low 39-50 [facility] Comment on above: Performed By: #### Marisa KOEHLER, PINR, 28454-3, CMP #### [facility] ([id number]) [address] [place] [address] 62906 Hemoglobin (Bld) [Mass/Vol] 11.2 g/dL Low 13-17 [facility] Comment on above: Performed By: #### Marisa KOEHLER, PINR, 04577-6, CMP #### [facility] ([id number]) [address] [place] [address] 74644 LYMPHOCYTES ABSOLUTE COUNT (10*3/UL) BY AUTOMATED COUNT 0.8 10*3/uL Low 1.0-3.5 [facility] Comment on above: Performed By: #### C BCA, PINR, 96287-6, CMP #### [facility] ([id number]) [address] [place] [address] 00315 LYMPHOCYTES RELATIVE PERCENT BY AUTOMATED COUNT 15.2 % Normal [facility] Comment on above: Performed By: #### C BCA, PINR, 44094-8, CMP #### [facility] ([id number]) [address] [place] [address] 69800 MCH (RBC) [Entitic mass] 31.0 pg Normal 27-34 [facility] Comment on above: Performed By: #### Marisa KOEHLER PINR, 94538-3, CMP #### [facility] ([id number]) [address] [place] [address] 64992 MCHC (RBC) [Mass/Vol] 33.2 g/dL Normal 32-36 [facility] Comment on above: Performed By: #### Marisa KOEHLER PINR, 21785-5, CMP #### [facility] ([id number]) [address] [place] [address] 47403 MCV (RBC) [Entitic vol] 93 fL Normal 80-100 [facility] Comment on above: Performed By: #### Marisa KOEHLER PINR, 30189-8, CMP #### [facility] ([id number]) [address] [place] [address] 71100 MONOCYTES ABSOLUTE COUNT (10*3/UL) BY AUTOMATED COUNT 0.6 10*3/uL Normal 0.0-0.9 [facility] Comment on above: Performed By: #### Marisa KOEHLER PINR, 02717-0, CMP #### [facility] ([id number]) [address] [place] [address] 16508 MONOCYTES RELATIVE PERCENT BY AUTOMATED COUNT 12.1 % Normal [facility] Comment on above: Performed By: #### Marisa KOEHLER PINR, 06583-4, CMP #### [facility] ([id number]) [address] [place] [address] 26217 NEUTROPHILS ABSOLUTE COUNT BY AUTOMATED COUNT 3.3 10*3/uL Normal 1.5-6.6 [facility] Comment on above: Performed By: #### Marisa KOEHLER, PINR, 30919-5, CMP #### [facility] ([id number]) [address] [place] [address] 75328 NEUTROPHILS RELATIVE PERCENT BY AUTOMATED COUNT 65.9 % Normal [facility] Comment on above: Performed By: #### C BCA, PINR, 24336-8, CMP #### [facility] ([id number]) [address] [place] [address] 37192 Platelet mean volume (Bld) [Entitic vol] 7.9 fL Normal 7-12 [facility] Comment on above: Performed By: #### C BCA, PINR, 15210-5, CMP #### [facility] ([id number]) [address] [place] [address] 14275 Platelets (Bld) [#/Vol] 161 10*3/uL Normal 150-450 [facility] Comment on above: Performed By: #### C BCA, PINR, 16421-9, CMP #### [facility] ([id number]) [address] [place] [address] 15443 RBC COUNT 3.62 X10E12/L Low 4.1-5.7 [facility] Comment on above: Performed By: #### C BCA, PINR, 39021-1, CMP #### [facility] ([id number]) [address] [place] [address] 18096 WBC (Bld) [#/Vol] 4.9 10*3/uL Normal 4-11 [facility] Comment on above: Performed By: #### C BCA, PINR, 68653-9, CMP #### [facility] ([id number]) [address] [place] [address] 83571 COMPREHENSIVE METABOLIC PANE [facility] 01-25-2025 Albumin [Mass/Vol] 3.3 g/dL Normal 3.2-5.3 [facility] Comment on above: Performed By: #### C BCA, PINR, 67078-1, CMP #### [facility] ([id number]) [address] [place] [address] 32544 ALP [Catalytic activity/Vol] 122 U/L Normal 39-130 [facility] Comment on above: Performed By: #### C BCA, PINR, 98353-5, CMP #### [facility] ([id number]) [address] [place] [address] 55599 ALT [Catalytic activity/Vol] 11 U/L Normal <=40 [facility] Comment on above: Performed By: #### C BCA, PINR, 82626-1, CMP #### [facility] ([id number]) [address] [place] [address] 35156 Anion gap [Moles/Vol] 7 mmol/L Normal 5-15 [facility] Comment on above: Performed By: #### C BCA, PINR, 32200-6, CMP #### [facility] ([id number]) [address] [place] [address] 50846 AST [Catalytic activity/Vol] 22 U/L Normal <=41 [facility] Comment on above: Performed By: #### C BCA, PINR, 48827-5, CMP #### [facility] ([id number]) [address] [place] [address] 12560 Bilirubin [Mass/Vol] 0.9 mg/dL Normal 0.3-1.2 [facility] Comment on above: Performed By: #### C BCA, PINR, 91847-4, CMP #### [facility] ([id number]) [address] [place] [address] 05799 Calcium [Mass/Vol] 8.4 mg/dL Low 8.5-10.5 [facility] Comment on above: Performed By: #### C BCA, PINR, 83400-7, CMP #### [facility] ([id number]) [address] [place] [address] 45580 Chloride [Moles/Vol] 104 mmol/L Normal 98-109 [facility] Comment on above: Performed By: #### C BCA, PINR, 01264-0, CMP #### [facility] ([id number]) [address] [place] [address] 35953 CO2 [Moles/Vol] 24 mmol/L Normal 22-32 [facility] Comment on above: Performed By: #### C BCA, PINR, 33297-8, CMP #### [facility] ([id number]) [address] [place] [address] 07230 Creatinine [Mass/Vol] 2.01 mg/dL High 0.70-1.20 [facility] Comment on above: Result Comment: METH OD TRACEABLE TO IDMS STANDARD Performed By: #### C RODO PINR, 49400-9, CMP #### [facility] ([id number]) [address] [place] [address] 42089 GFR/1.73 sq M.predicted among non-blacks MDRD (S/P/Bld) [Vol rate/Area] 33 mL/min/{1.73_m2} Low >=60 [facility] Comment on above: Result Comment: eGFR not reported due to non-numeric value for Creatinine. Reported eGFR is based on the CKD-EPI 2021 equation that does not use a race coefficient. Performed By: #### C BCA, PINR, 45305-8, CMP #### [facility] ([id number]) [address] [place] [address] 90955 Glucose [Mass/Vol] 97 mg/dL Normal 65-99 [facility] Comment on above: Performed By: #### C BCA, PINR, 77790-5, CMP #### [facility] ([id number]) [address] [place] [address] 76984 Potassium [Moles/Vol] 4.0 mmol/L Normal 3.5-5.0 [facility] Comment on above: Performed By: #### C BCA, PINR, 39772-7, CMP #### [facility] ([id number]) [address] [place] [address] 64324 Protein [Mass/Vol] 6.9 g/dL Normal 6.0-8.0 [facility] Comment on above: Performed By: #### C BCA, PINR, 40983-8, CMP #### [facility] ([id number]) [address] [place] [address] 45435 Sodium [Moles/Vol] 135 mmol/L Normal 134-146 [facility] Comment on above: Performed By: #### C BCA, PINR, 67852-3, CMP #### [facility] ([id number]) [address] [place] [address] 26307 Urea nitrogen [Mass/Vol] 47 mg/dL High 5-27 [facility] Comment on above: Performed By: #### C BCA, PINR, 15752-4, CMP #### [facility] ([id number]) [address] [place] [address] 47569 B-TYPE NATRIURETIC PEPTIDE 01-18-2025 Natriuretic peptide B (Bld) [Mass/Vol] 2720 pg/mL High <=100 [facility] Comment on above: Performed By: #### C BCA, PINR, 46199-9, CMP #### [facility] ([id number]) [address] [place] [address] 81791 COMPREHENSIVE METABOLIC PANE [facility] 01-18-2025 Albumin [Mass/Vol] 3.5 g/dL Normal 3.2-5.3 [facility] Comment on above: Performed By: #### C BCA, PINR, 20074-9, CMP #### [facility] ([id number]) [address] [place] [address] 02600 ALP [Catalytic activity/Vol] 118 U/L Normal 39-130 [facility] Comment on above: Performed By: #### C BCA, PINR, 44186-1, CMP #### [facility] ([id number]) [address] [place] [address] 28081 ALT [Catalytic activity/Vol] 12 U/L Normal <=40 [facility] Comment on above: Performed By: #### C BCA, PINR, 29940-9, CMP #### [facility] ([id number]) [address] [place] [address] 46302 Anion gap [Moles/Vol] 9 mmol/L Normal 5-15 [facility] Comment on above: Performed By: #### C BCA, PINR, 19343-0, CMP #### [facility] ([id number]) [address] [place] [address] 68737 AST [Catalytic activity/Vol] 24 U/L Normal <=41 [facility] Comment on above: Performed By: #### C BCA, PINR, 79485-8, CMP #### [facility] ([id number]) [address] [place] [address] [place] [address] Bilirubin [Mass/Vol] 1.2 mg/dL Normal 0.3-1.2 [facility] Comment on above: Performed By: #### C BCA, PINR, 57276-9, CMP #### [facility] ([id number]) [address] [place] [address] 12961 Calcium [Mass/Vol] 8.9 mg/dL Normal 8.5-10.5 [facility] Comment on above: Performed By: #### C BCA, PINR, 99730-4, CMP #### [facility] ([id number]) [address] [place] [address] 39625 Chloride [Moles/Vol] 102 mmol/L Normal 98-109 [facility] Comment on above: Performed By: #### C BCA, PINR, 16931-8, CMP #### [facility] ([id number]) [address] [place] [address] [place] [address] CO2 [Moles/Vol] 23 mmol/L Normal 22-32 [facility] Comment on above: Performed By: #### C KATHERINE KOEHLER, 82982-5, CMP #### [facility] ([id number]) [address] [place] [address] 42784 Creatinine [Mass/Vol] 2.03 mg/dL High 0.70-1.20 [facility] Comment on above: Result Comment: METH OD TRACEABLE TO IDMS STANDARD Performed By: #### C KATHERINE KOEHLER, 59388-7, CMP #### [facility] ([id number]) [address] [place] [address] 81498 GFR/1.73 sq M.predicted among non-blacks MDRD (S/P/Bld) [Vol rate/Area] 32 mL/min/{1.73_m2} Low >=60 [facility] Comment on above: Result Comment: eGFR not reported due to non-numeric value for Creatinine. Reported eGFR is based on the CKD-EPI 2021 equation that does not use a race coefficient. Performed By: #### C KATHERINE KOEHLER, 72932-5, CMP #### [facility] ([id number]) [address] [place] [address] 78898 Glucose [Mass/Vol] 93 mg/dL Normal 65-99 [facility] Comment on above: Performed By: #### C KATHERINE KOEHLER, 64244-8, CMP #### [facility] ([id number]) [address] [place] [address] 61865 Potassium [Moles/Vol] 3.9 mmol/L Normal 3.5-5.0 [facility] Comment on above: Performed By: #### C RODO PINR, 00414-8, CMP #### [facility] ([id number]) [address] [place] [address] 56499 Protein [Mass/Vol] 7.3 g/dL Normal 6.0-8.0 [facility] Comment on above: Performed By: #### C BCA, PINR, 79393-0, CMP #### [facility] ([id number]) [address] [place] [address] 22504 Sodium [Moles/Vol] 134 mmol/L Normal 134-146 [facility] Comment on above: Performed By: #### C BCA, PINR, 05113-3, CMP #### [facility] ([id number]) [address] [place] [address] 26395 Urea nitrogen [Mass/Vol] 58 mg/dL High 5-27 [facility] Comment on above: Performed By: #### C BCA, PINR, 79853-6, CMP #### [facility] ([id number]) [address] [place] [address] 72834 LIPID PROFILEon 01-18-2025 Cholesterol [Mass/Vol] 144 mg/dL Low 150-200 [facility] Comment on above: Performed By: #### C BCA, PINR, 76437-4, CMP #### [facility] ([id number]) [address] [place] [address] 66307 Cholesterol in HDL [Mass/Vol] 46 mg/dL Normal >39 [facility] Comment on above: Result Comment: HDL <40 mg/dL - High Risk HDL > or = 40mg/dL- Desirable HDL >60 mg/dL - Negative Risk Performed By: #### C BCA, PINR, 37457-7, CMP #### [facility] ([id number]) [address] [place] [address] 78723 Cholesterol in LDL [Mass/Vol] 88 mg/dL Normal <130 [facility] Comment on above: Result Comment: LDL <100 mg/dL - Desirable LDL >160 mg/dL - High Risk Performed By: #### C BCA, PINR, 29580-8, CMP #### [facility] ([id number]) [address] [place] [address] 95682 CHOLESTEROL:HDL 3.1 Normal 1.0-5.0 [facility] Comment on above: Performed By: #### C RODO, PINR, 12601-8, CMP #### [facility] ([id number]) [address] [place] [address] 33989 Triglyceride [Mass/Vol] 51 mg/dL Normal 27-150 [facility] Comment on above: Performed By: #### C RODO, PINR, 66259-6, CMP #### [facility] ([id number]) [address] [place] [address] 91884 VERY LOW LIPOPROTEIN 10 mg/dL Normal 0-30 [facility] Comment on above: Performed By: #### C RODO, PINR, 53391-5, CMP #### [facility] ([id number]) [address] [place] [address] MAGNESIUMon 01-18-2025 Magnesium [Mass/Vol] 2.6 mg/dL Normal 1.8-2.6 [facility] Comment on above: Performed By: #### C RODO, PINR, 69170-5, CMP #### [facility] ([id number]) [address] [place] [address] 20157 T3, FREEon 01-18-2025 Free T3 [Mass/Vol] 2.15 pg/mL Low 2.50-3.90 [facility] Comment on above: Performed By: #### C BCA, PINR, 75348-0, CMP #### [facility] ([id number]) [address] [place] [address] 76816 THYROID PROFILE INCLUDES TSH FT4on 01-18-2025 Free T4 [Mass/Vol] 1.29 ng/dL Normal 0.61-1.60 [facility] Comment on above: Performed By: #### C RODO, PINR, 08113-7, CMP #### [facility] ([id number]) [address] [place] [address] TSH 8.64 uIU/mL High 0.49-4.67 [facility] Comment on above: Performed By: #### C RODO, PINR, 37371-2, CMP #### [facility] ([id number]) [address] [place] [address] 58203 URIC ACIDon 01-18-2025 Urate [Mass/Vol] 11.4 mg/dL High 2.6-7.2 [facility] Comment on above: Performed By: #### C KATHERINE KOEHLER, 30739-4, CMP #### [facility] ([id number]) [address] [place] [address] 96477 VITAMIN D 25 HYDROXYon 01-18 VITAMIN D 25 HYD TOT 41.6 ng/mL Normal 30.0-100.0 [facility] Comment on above: Order Comment: Vitam in D status 25 [place] Vitamin D Deficiency <20 ng/mLInsufficiency 20-29 ng/mLSufficiency 30-100 ng/mLToxicity >100 ng/mLNOTE: A pediatric reference range has not been established by the sharepoint application architect of this kit. The [place] [employer] recommends a Vitamin D level of = or >20ng/mL in infants and children. Performed By: #### C RODO PINR, 47348-0, CMP #### [facility] ([id number]) [address] [place] [address] 27125 CBC WITH AUTO DIFFERENTIALon 01-11-2025 BASOPHILS ABSOLUTE COUNT (10*3/UL) BY AUTOMATED COUNT 0.0 10*3/uL Normal [facility] Comment on above: Performed By: #### Marisa KOEHLER, PINR, 12970-4, CMP #### [facility] ([id number]) [address] [place] [address] 20813 BASOPHILS RELATIVE PERCENT BY AUTOMATED COUNT 0.5 % Normal [facility] Comment on above: Performed By: #### C RODO, PINR, 31945-9, CMP #### [facility] ([id number]) [address] [place] [address] 26144 CELLAVISION DIFFERENTIAL TYPE AUTOMATED DIFFERENTIAL Normal [facility] Comment on above: Performed By: #### C RODO, PINR, 95308-5, CMP #### [facility] ([id number]) [address] [place] [address] 57938 Eosinophils (Bld) [#/Vol] 0.3 10*3/uL Normal [facility] Comment on above: Performed By: #### C RODO, PINR, [id number], CMP #### [facility] ([id number]) [address] [place] [address] 61592 EOSINOPHILS RELATIVE PERCENT BY AUTOMATED COUNT 6.5 % Normal [facility] Comment on above: Performed By: #### Marisa KOEHLER, PINR, [id number], CMP #### [facility] ([id number]) [address] [place] [address] 36437 Erythrocyte distribution width (RBC) [Ratio] 18.5 % High 11.5-15 [facility] Comment on above: Performed By: #### C RODO PINR, [id number], CMP #### [facility] ([id number]) [address] [place] [address] 87712 Hematocrit (Bld) [Volume fraction] 36.0 % Low 39-50 [facility] Comment on above: Performed By: #### Marisa KOEHLER, PINR, [id number], CMP #### [facility] ([id number]) [address] [place] [address] 76822 Hemoglobin (Bld) [Mass/Vol] 11.8 g/dL Low 13-17 [facility] Comment on above: Performed By: #### C RODO PINR, [id number], CMP #### [facility] ([id number]) [address] [place] [address] 03954 LYMPHOCYTES ABSOLUTE COUNT (10*3/UL) BY AUTOMATED COUNT 1.1 10*3/uL Normal [facility] Comment on above: Performed By: #### Marisa KOEHLER PINR, [id number], CMP #### [facility] ([id number]) [address] [place] [address] 97574 LYMPHOCYTES RELATIVE PERCENT BY AUTOMATED COUNT 21.6 % Normal [facility] Comment on above: Performed By: #### Marisa KOEHLER PINR, [id number], CMP #### [facility] ([id number]) [address] [place] [address] 90548 MCH (RBC) [Entitic mass] 30.6 pg Normal 27-34 [facility] Comment on above: Performed By: #### Marisa KOEHLER PINR, [id number], CMP #### [facility] ([id number]) [address] [place] [address] 29506 MCHC (RBC) [Mass/Vol] 32.9 g/dL Normal 32-36 [facility] Comment on above: Performed By: #### Marisa KOEHLER PINR, [id number], CMP #### [facility] ([id number]) [address] [place] [address] 15790 MCV (RBC) [Entitic vol] 93 fL Normal 80-100 [facility] Comment on above: Performed By: #### Marisa KOEHLER PINR, [id number], CMP #### [facility] ([id number]) [address] [place] [address] 61293 MONOCYTES ABSOLUTE COUNT (10*3/UL) BY AUTOMATED COUNT 0.6 10*3/uL Normal [facility] Comment on above: Performed By: #### C BCA, PINR, [id number], CMP #### [facility] ([id number]) [address] [place] [address] 20481 MONOCYTES RELATIVE PERCENT BY AUTOMATED COUNT 10.7 % Normal [facility] Comment on above: Performed By: #### Marisa BCA, PINR, [id number], CMP #### [facility] ([id number]) [address] [place] [address] 37299 NEUTROPHILS ABSOLUTE COUNT BY AUTOMATED COUNT 3.1 10*3/uL Normal [facility] Comment on above: Performed By: #### Marisa KOEHLER, PINR, [id number], CMP #### [facility] ([id number]) [address] [place] [address] 80921 NEUTROPHILS RELATIVE PERCENT BY AUTOMATED COUNT 60.7 % Normal [facility] Comment on above: Performed By: #### Marisa BCA, PINR, [id number], CMP #### [facility] ([id number]) [address] [place] [address] 82621 Platelet mean volume (Bld) [Entitic vol] 8.5 fL Normal 7-12 [facility] Comment on above: Performed By: #### Marisa BCA, PINR, [id number], CMP #### [facility] ([id number]) [address] [place] [address] 94303 Platelets (Bld) [#/Vol] 148 10*3/uL Low 150-450 [facility] Comment on above: Performed By: #### Marisa BCA, PINR, [id number], CMP #### [facility] ([id number]) [address] [place] [address] 71805 RBC COUNT 3.87 X10E12/L Low 4.1-5.7 [facility] Comment on above: Performed By: #### Marisa BCA, PINR, [id number], CMP #### [facility] ([id number]) [address] [place] [address] 38659 WBC (Bld) [#/Vol] 5.2 10*3/uL Normal 4-11 [facility] Comment on above: Performed By: #### C BCA, PINR, [id number], CMP #### [facility] ([id number]) [address] [place] [address] 02493 COMPREHENSIVE METABOLIC PANE Aldo 01-11-2025 Albumin [Mass/Vol] 3.4 g/dL Normal 3.2-5.3 [facility] Comment on above: Performed By: #### C BCA, PINR, [id number], CMP #### [facility] ([id number]) [address] [place] [address] 23836 ALP [Catalytic activity/Vol] 126 U/L Normal 39-130 [facility] Comment on above: Performed By: #### C BCA, PINR, [id number], CMP #### [facility] ([id number]) [address] [place] [address] 83086 ALT [Catalytic activity/Vol] 13 U/L Normal <=40 [facility] Comment on above: Performed By: #### C BCA, PINR, [id number], CMP #### [facility] ([id number]) [address] [place] [address] 53759 Anion gap [Moles/Vol] 7 mmol/L Normal 5-15 [facility] Comment on above: Performed By: #### C BCA, PINR, [id number], CMP #### [facility] ([id number]) [address] [place] [address] 53084 AST [Catalytic activity/Vol] 21 U/L Normal <=41 [facility] Comment on above: Performed By: #### C BCA, PINR, [id number], CMP #### [facility] ([id number]) [address] [place] [address] [place] [address] Bilirubin [Mass/Vol] 0.9 mg/dL Normal 0.3-1.2 [facility] Comment on above: Performed By: #### C BCA, PINR, 62668-4, CMP #### [facility] ([id number]) [address] [place] [address] 70846 Calcium [Mass/Vol] 8.7 mg/dL Normal 8.5-10.5 [facility] Comment on above: Performed By: #### C BCA, PINR, [id number], CMP #### [facility] ([id number]) [address] [place] [address] 34397 Chloride [Moles/Vol] 103 mmol/L Normal 98-109 [facility] Comment on above: Performed By: #### C BCA, PINR, 94557-3, CMP #### [facility] ([id number]) [address] [place] [address] [place] [address] CO2 [Moles/Vol] 26 mmol/L Normal 22-32 [facility] Comment on above: Performed By: #### C BCA, PINR, [id number], CMP #### [facility] ([id number]) [address] [place] [address] 04191 Creatinine [Mass/Vol] 1.80 mg/dL High 0.70-1.20 [facility] Comment on above: Result Comment: METH OD TRACEABLE TO IDMS STANDARD Performed By: #### C BCA, PINR, [id number], CMP #### [facility] ([id number]) [address] [place] [address] 69302 GFR/1.73 sq M.predicted among non-blacks MDRD (S/P/Bld) [Vol rate/Area] 37 mL/min/{1.73_m2} Low >=60 [facility] Comment on above: Result Comment: eGFR not reported due to non-numeric value for Creatinine. Reported eGFR is based on the CKD-EPI 2020 equation that does not use a race coefficient. Performed By: #### C KATHERINE KOEHLER, [id number], CMP #### [facility] ([id number]) [address] [place] [address] 92586 Glucose [Mass/Vol] 80 mg/dL Normal 65-99 [facility] Comment on above: Performed By: #### C KATHERINE KOEHLER, 86903-8, CMP #### [facility] ([id number]) [address] [place] [address] 52251 Potassium [Moles/Vol] 4.1 mmol/L Normal 3.5-5.0 [facility] Comment on above: Performed By: #### C KATHERINE KOEHLER, 47212-0, CMP #### [facility] ([id number]) [address] [place] [address] 73481 Protein [Mass/Vol] 7.3 g/dL Normal 6.0-8.0 [facility] Comment on above: Performed By: #### C PHILLIP KOEHLERR, [id number], CMP #### [facility] ([id number]) [address] [place] [address] 37095 Sodium [Moles/Vol] 136 mmol/L Normal 134-146 [facility] Comment on above: Performed By: #### C PHILLIP KOEHLERR, [id number], CMP #### [facility] ([id number]) [address] [place] [address] 13734 Urea nitrogen [Mass/Vol] 49 mg/dL High 5-27 [facility] Comment on above: Performed By: #### C RODO PINR, [id number], CMP #### [facility] ([id number]) [address] [place] [address] 45148 ECG COMPLETEon 12-08-2024 ECG COMPLETE [facility] CNPNon 12-03-2024 CNPN Normal [facility] Metabolic Pane aldo 11-04-2024 Albumin [Mass/Vol] 3.4 g/dL Low 3.5 - 5.2 g/dL [facility] ALP [Catalytic activity/Vol] 119 U/L 40 - 129 U/L [facility] ALT [Catalytic activity/Vol] 10 U/L 10 - 50 U/L [facility] Anion gap [Moles/Vol] 11 mmol/L 9 - 16 mmol/L [facility] AST [Catalytic activity/Vol] 25 U/L 10 - 50 U/L [facility] Bilirubin [Mass/Vol] 0.6 mg/dL 0.0 - 1.2 mg/dL [facility] Calcium [Mass/Vol] 8.9 mg/dL 8.6 - 10. 4 mg/dL [facility] Chloride [Moles/Vol] 102 mmol/L 98 - 107 mmol/L [facility] CO2 [Moles/Vol] 26 mmol/L 20 - 31 mmol/L [facility] Creatinine [Mass/Vol] 2.1 mg/dL High 0.7 - 1.2 mg/dL [facility] Est, Glom Filt Rate 31 Low - PINF [facility] Comment on above: These results [...] [Mass/Vol] 77 mg/dL 74 - 99 mg/dL [facility] Interpretation and review of laboratory results Abnormal [facility] Potassium [Moles/Vol] 3.9 mmol/L 3.7 - 5.3 mmol/L [facility] Protein [Mass/Vol] 6.2 g/dL Low 6.6 - 8.7 g/dL [facility] Sodium [Moles/Vol] 139 mmol/L 136 - 145 mmol/L [facility] Urea nitrogen [Mass/Vol] 31 mg/dL High 8 - 23 mg/dL [facility] Comprehensive Metabolic Pane aldo 11-03-2024 Albumin [Mass/Vol] 3.2 g/dL Low 3.5 - 5.2 g/dL [facility] ALP [Catalytic activity/Vol] 107 U/L 40 - 129 U/L [facility] ALT [Catalytic activity/Vol] 11 U/L 10 - 50 U/L [facility] Anion gap [Moles/Vol] 10 mmol/L 9 - 16 mmol/L [facility] AST [Catalytic activity/Vol] 23 U/L 10 - 50 U/L [facility] Bilirubin [Mass/Vol] 0.6 mg/dL 0.0 - 1.2 mg/dL [facility] Calcium [Mass/Vol] 8.7 mg/dL 8.6 - 10. 4 mg/dL [facility] Chloride [Moles/Vol] 103 mmol/L 98 - 107 mmol/L [facility] CO2 [Moles/Vol] 26 mmol/L 20 - 31 mmol/L [facility] Creatinine [Mass/Vol] 2.1 mg/dL High 0.7 - 1.2 mg/dL [facility] Est, Glom Filt Rate 31 Low - PINF [facility] Comment on above: These results [...] mg/dL High 74 - 99 mg/dL [facility] Interpretation and review of laboratory results Abnormal [facility] Potassium [Moles/Vol] 4.3 mmol/L 3.7 - 5.3 mmol/L [facility] Protein [Mass/Vol] 6.0 g/dL Low 6.6 - 8.7 g/dL [facility] Sodium [Moles/Vol] 139 mmol/L 136 - 145 mmol/L [facility] Urea nitrogen [Mass/Vol] 31 mg/dL High 8 - 23 mg/dL [facility] CBCon 11-02-2024 Erythrocyte distribution width (RBC) [Ratio] 23.0 % High 11.5 - 14.9 % [facility] Hematocrit (Bld) [Volume fraction] 35.8 % Low 41 - 53 % [facility] Hemoglobin (Bld) [Mass/Vol] 11.8 g/dL Low 13.5 - 17.5 g/dL [facility] Interpretation and review of laboratory results Abnormal [facility] MCH (RBC) [Entitic mass] 29.8 pg 26 - 34 pg [facility] MCHC (RBC) [Mass/Vol] 32.9 g/dL 31 - 37 g/dL [facility] MCV (RBC) [Entitic vol] 90.7 fL 80 - 100 fL [facility] Platelet mean volume (Bld) [Entitic vol] 8.4 fL 6.0 - 12.0 fL [facility] Platelets (Bld) [#/Vol] 111 10*3/uL Low [facility] RBC (Bld) [#/Vol] 3.95 10*6/uL Low 4.5 - 5.9 m/uL [facility] WBC other (Bld) [#/Vol] 3.7 [facility] Comprehensive Metabolic Pane aldo 11-02-2024 Albumin [Mass/Vol] 3.4 g/dL Low 3.5 - 5.2 g/dL [facility] ALP [Catalytic activity/Vol] 119 U/L 40 - 129 U/L [facility] ALT [Catalytic activity/Vol] 11 U/L 10 - 50 U/L [facility] Anion gap [Moles/Vol] 11 mmol/L 9 - 16 mmol/L [facility] AST [Catalytic activity/Vol] 28 U/L 10 - 50 U/L [facility] Bilirubin [Mass/Vol] 0.7 mg/dL 0.0 - 1.2 mg/dL [facility] Calcium [Mass/Vol] 8.8 mg/dL 8.6 - 10. 4 mg/dL [facility] Chloride [Moles/Vol] 103 mmol/L 98 - 107 mmol/L [facility] CO2 [Moles/Vol] 27 mmol/L 20 - 31 mmol/L [facility] Creatinine [Mass/Vol] 2.1 mg/dL High 0.7 - 1.2 mg/dL [facility] Est, Glom Filt Rate 31 Low - PINF [facility] Comment on above: These results [...] 79 mg/dL 74 - 99 mg/dL [facility] Interpretation and review of laboratory results Abnormal [facility] Potassium [Moles/Vol] 3.8 mmol/L 3.7 - 5.3 mmol/L [facility] Protein [Mass/Vol] 6.3 g/dL Low 6.6 - 8.7 g/dL [facility] Sodium [Moles/Vol] 141 mmol/L 136 - 145 mmol/L [facility] Urea nitrogen [Mass/Vol] 31 mg/dL High 8 - 23 mg/dL [facility] Magnesiumon 11-02-2024 Magnesium [Mass/Vol] 2.0 mg/dL 1.6 - 2.4 mg/dL [facility] No Panel Informationon 11-02 [facility] Phosphoruson 11-02-2024 Phosphate [Mass/Vol] 2.8 mg/dL 2.5 - 4.5 mg/dL [facility] Comprehensive Metabolic Pane aldo 11-01-2024 Albumin [Mass/Vol] 3.3 g/dL Low 3.5 - 5.2 g/dL [facility] ALP [Catalytic activity/Vol] 109 U/L 40 - 129 U/L [facility] ALT [Catalytic activity/Vol] 12 U/L 10 - 50 U/L [facility] Anion gap [Moles/Vol] 10 mmol/L 9 - 16 mmol/L [facility] AST [Catalytic activity/Vol] 25 U/L 10 - 50 U/L [facility] Bilirubin [Mass/Vol] 0.7 mg/dL 0.0 - 1.2 mg/dL [facility] Calcium [Mass/Vol] 8.9 mg/dL 8.6 - 10. 4 mg/dL [facility] Chloride [Moles/Vol] 103 mmol/L 98 - 107 mmol/L [facility] CO2 [Moles/Vol] 27 mmol/L 20 - 31 mmol/L [facility] Creatinine [Mass/Vol] 2.1 mg/dL High 0.7 - 1.2 mg/dL [facility] Est, Glom Filt Rate 31 Low - PINF [facility] Comment on above: These results [...] 80 mg/dL 74 - 99 mg/dL [facility] Interpretation and review of laboratory results Abnormal [facility] Potassium [Moles/Vol] 3.9 mmol/L 3.7 - 5.3 mmol/L [facility] Protein [Mass/Vol] 6.0 g/dL Low 6.6 - 8.7 g/dL [facility] Sodium [Moles/Vol] 140 mmol/L 136 - 145 mmol/L [facility] Urea nitrogen [Mass/Vol] 33 mg/dL High 8 - 23 mg/dL [facility] Comprehensive Metabolic Pane aldo 10-31-2024 Albumin [Mass/Vol] 3.0 g/dL Low 3.5 - 5.2 g/dL [facility] ALP [Catalytic activity/Vol] 110 U/L 40 - 129 U/L [facility] ALT [Catalytic activity/Vol] 11 U/L 10 - 50 U/L [facility] Anion gap [Moles/Vol] 11 mmol/L 9 - 16 mmol/L [facility] AST [Catalytic activity/Vol] 28 U/L 10 - 50 U/L [facility] Bilirubin [Mass/Vol] 0.7 mg/dL 0.0 - 1.2 mg/dL [facility] Calcium [Mass/Vol] 8.7 mg/dL 8.6 - 10. 4 mg/dL [facility] Chloride [Moles/Vol] 101 mmol/L 98 - 107 mmol/L [facility] CO2 [Moles/Vol] 25 mmol/L 20 - 31 mmol/L [facility] Creatinine [Mass/Vol] 2.2 mg/dL High 0.7 - 1.2 mg/dL [facility] Est, Glom Filt Rate 29 Low - PINF [facility] Comment on above: These results [...] mg/dL High 74 - 99 mg/dL [facility] Interpretation and review of laboratory results Abnormal [facility] Potassium [Moles/Vol] 4.0 mmol/L 3.7 - 5.3 mmol/L [facility] Comment on above: Specimen hemolysis h as exceeded the interference as defined by Karoline. Value may be falsely increased. Suggest recollection if clinically indicated. Protein [Mass/Vol] 5.8 g/dL Low 6.6 - 8.7 g/dL [facility] Sodium [Moles/Vol] 137 mmol/L 136 - 145 mmol/L [facility] Urea nitrogen [Mass/Vol] 35 mg/dL High 8 - 23 mg/dL [facility] Comprehensive Metabolic Pane aldo 10-30-2024 Albumin [Mass/Vol] 3.2 g/dL Low 3.5 - 5.2 g/dL [facility] ALP [Catalytic activity/Vol] 112 U/L 40 - 129 U/L [facility] ALT [Catalytic activity/Vol] 12 U/L 10 - 50 U/L [facility] Anion gap [Moles/Vol] 14 mmol/L 9 - 16 mmol/L [facility] AST [Catalytic activity/Vol] 25 U/L 10 - 50 U/L [facility] Bilirubin [Mass/Vol] 0.7 mg/dL 0.0 - 1.2 mg/dL [facility] Calcium [Mass/Vol] 8.7 mg/dL 8.6 - 10. 4 mg/dL [facility] Chloride [Moles/Vol] 102 mmol/L 98 - 107 mmol/L [facility] CO2 [Moles/Vol] 22 mmol/L 20 - 31 mmol/L [facility] Creatinine [Mass/Vol] 2.2 mg/dL High 0.7 - 1.2 mg/dL [facility] Est, Glom Filt Rate 29 Low - PINF [facility] Comment on above: These results [...] 78 mg/dL 74 - 99 mg/dL [facility] Interpretation and review of laboratory results Abnormal [facility] Potassium [Moles/Vol] 4.0 mmol/L 3.7 - 5.3 mmol/L [facility] Comment on above: Specimen hemolysis h as exceeded the interference as defined by Karoline. Value may be falsely increased. Suggest recollection if clinically indicated. Protein [Mass/Vol] 5.8 g/dL Low 6.6 - 8.7 g/dL [facility] Sodium [Moles/Vol] 138 mmol/L 136 - 145 mmol/L [facility] Urea nitrogen [Mass/Vol] 36 mg/dL High 8 - 23 mg/dL [facility] US ABDOMEN LIMITEDon 025 US ABDOMEN LIMITED EXAMINATION: LIMITED ABDOMINAL ULTRASOUND 10/30/2024 1:28 pm COMPARISON: 10/21/2024 HISTORY: ORDERING SYSTEM PROVIDED HISTORY: ascites TECHNOLOGIST PROVIDED HISTORY: Reason for Exam:->rule out ascites Height:182.9cm Weight:77.111kg ascites FINDINGS: A limited scan of the four quadrants of the abdomen was performed to evaluate for ascites. There is a [id number] amount of abdominal ascites. IMPRESSION: Mild to moderate intra-abdominal ascites. Interpreted by: Lewis Suazo MD Signed by: Lewis Suazo MD 10/30/24 Final result Normal [facility] US Abdomen limitedon 025 Mild to moderate intra-abdominal ascites. [facility] RIS CONSOLIDATED EXAMINATION: LIMITED ABDOMINAL ULTRASOUND 10/30/2024 1:28 pm COMPARISON: 10/21/2024 HISTORY: ORDERING SYSTEM PROVIDED HISTORY: ascites TECHNOLOGIST PROVIDED HISTORY: Reason for Exam:->rule out ascites Height:182.9cm Weight:77.111kg ascites FINDINGS: A limited scan of the four quadrants of the abdomen was performed to evaluate for ascites. There is a [id number] amount of abdominal ascites. [facility] CONSOLIDATED Lewis Suazo MD - 10/30/2024 EXAMINATION: LIMITED ABDOMINAL ULTRASOUND 10/30/2024 1:28 pm COMPARISON: 10/21/2024 HISTORY: ORDERING SYSTEM PROVIDED HISTORY: ascites TECHNOLOGIST PROVIDED HISTORY: Reason for Exam:->rule out ascites Height:182.9cm Weight:77.111kg ascites FINDINGS: A limited scan of the four quadrants of the abdomen was performed to evaluate for ascites. There is a [id number] amount of abdominal ascites. IMPRESSION: Mild to moderate intra-abdominal ascites. [facility] Radiology Study observation (narrative) [facility] US Abdomen limitedOrdered By : Lewis Suazo on 10-30-2024 [facility] Work Phone: [facility] Metabolic [facility] 10-29-2024 Albumin [Mass/Vol] 3.4 g/dL Low 3.5 - 5.2 g/dL [facility] ALP [Catalytic activity/Vol] 121 U/L 40 - 129 U/L [facility] ALT [Catalytic activity/Vol] 14 U/L 10 - 50 U/L [facility] Anion gap [Moles/Vol] 12 mmol/L 9 - 16 mmol/L [facility] AST [Catalytic activity/Vol] 27 U/L 10 - 50 U/L [facility] Bilirubin [Mass/Vol] 0.8 mg/dL 0.0 - 1.2 mg/dL [facility] Calcium [Mass/Vol] 8.8 mg/dL 8.6 - 10. 4 mg/dL [facility] Chloride [Moles/Vol] 101 mmol/L 98 - 107 mmol/L [facility] CO2 [Moles/Vol] 26 mmol/L 20 - 31 mmol/L [facility] Creatinine [Mass/Vol] 2.2 mg/dL High 0.7 - 1.2 mg/dL [facility] Est, Glom Filt Rate 29 Low - PINF [facility] Comment on above: These results [...] 78 mg/dL 74 - 99 mg/dL [facility] Interpretation and review of laboratory results Abnormal [facility] Potassium [Moles/Vol] 3.9 mmol/L 3.7 - 5.3 mmol/L [facility] Protein [Mass/Vol] 6.3 g/dL Low 6.6 - 8.7 g/dL [facility] Sodium [Moles/Vol] 139 mmol/L 136 - 145 mmol/L [facility] Urea nitrogen [Mass/Vol] 36 mg/dL High 8 - 23 mg/dL [facility] Telephoneon 10-29-2024 Telephone Normal [facility] Comprehensive Metabolic Pane aldo 10-28-2024 Albumin [Mass/Vol] 3.5 g/dL 3.5 - 5.2 g/dL [facility] ALP [Catalytic activity/Vol] 125 U/L 40 - 129 U/L [facility] ALT [Catalytic activity/Vol] 17 U/L 10 - 50 U/L [facility] Anion gap [Moles/Vol] 10 mmol/L 9 - 16 mmol/L [facility] AST [Catalytic activity/Vol] 26 U/L 10 - 50 U/L [facility] Bilirubin [Mass/Vol] 0.7 mg/dL 0.0 - 1.2 mg/dL [facility] Calcium [Mass/Vol] 8.9 mg/dL 8.6 - 10. 4 mg/dL [facility] Chloride [Moles/Vol] 101 mmol/L 98 - 107 mmol/L [facility] CO2 [Moles/Vol] 27 mmol/L 20 - 31 mmol/L [facility] Creatinine [Mass/Vol] 2.3 mg/dL High 0.7 - 1.2 mg/dL [facility] Est, Glom Filt Rate 28 Low - PINF [facility] Comment on above: These results [...] 87 mg/dL 74 - 99 mg/dL [facility] Interpretation and review of laboratory results Abnormal [facility] Potassium [Moles/Vol] 3.7 mmol/L 3.7 - 5.3 mmol/L [facility] Protein [Mass/Vol] 6.3 g/dL Low 6.6 - 8.7 g/dL [facility] Sodium [Moles/Vol] 138 mmol/L 136 - 145 mmol/L [facility] Urea nitrogen [Mass/Vol] 36 mg/dL High 8 - 23 mg/dL [facility] CBC with Auto Differentialon 10-27-2024 Basophils (Bld) [#/Vol] 0.04 10*3/uL [facility] Basophils/100 WBC (Bld) 1 % 0 - 2 % [facility] Eosinophils (Bld) [#/Vol] 0.15 10*3/uL [facility] Eosinophils/100 WBC (Bld) 4 % 0 - 4 % [facility] Erythrocyte distribution width (RBC) [Ratio] 24.2 % High 11.5 - 14.9 % [facility] Hematocrit (Bld) [Volume fraction] 35.2 % Low 41 - 53 % [facility] Hemoglobin (Bld) [Mass/Vol] 11.2 g/dL Low 13.5 - 17.5 g/dL [facility] Interpretation and review of laboratory results Abnormal [facility] Lymphocytes/100 WBC (Bld) 20 % Low 24 - 44 % [facility] Lymphocytes/100 WBC (Bld) 0.74 % Low [facility] MCH (RBC) [Entitic mass] 29.0 pg 26 - 34 pg [facility] MCHC (RBC) [Mass/Vol] 31.8 g/dL 31 - 37 g/dL [facility] MCV (RBC) [Entitic vol] 91.2 fL 80 - 100 fL [facility] Monocytes/100 WBC (Bld) 14 % High 1 - 7 % [facility] Monocytes/100 WBC (Bld) 0.52 % [facility] Morphology Chance (Bld) [Interp] ANISOCYTOSIS PRESENT [facility] Morphology Chance (Bld) [Interp] ACANTHOCYTES 1+ MICROCYTOSIS PRESENT [facility] Neutrophils/100 WBC (Bld) 61 % 36 - 66 % [facility] Platelet mean volume (Bld) [Entitic vol] 8.4 fL 6.0 - 12.0 fL [facility] Platelets (Bld) [#/Vol] 146 10*3/uL Low [facility] RBC (Bld) [#/Vol] 3.86 10*6/uL Low 4.5 - 5.9 m/uL [facility] Segmented neutrophils/100 WBC (Bld) 2.25 % [facility] WBC other (Bld) [#/Vol] 3.7 [facility] Comprehensive Metabolic Pane aldo 10-27-2024 Albumin [Mass/Vol] 3.7 g/dL 3.5 - 5.2 g/dL [facility] ALP [Catalytic activity/Vol] 117 U/L 40 - 129 U/L [facility] ALT [Catalytic activity/Vol] 19 U/L 10 - 50 U/L [facility] Anion gap [Moles/Vol] 11 mmol/L 9 - 16 mmol/L [facility] AST [Catalytic activity/Vol] 26 U/L 10 - 50 U/L [facility] Bilirubin [Mass/Vol] 0.8 mg/dL 0.0 - 1.2 mg/dL [facility] Calcium [Mass/Vol] 8.7 mg/dL 8.6 - 10. 4 mg/dL [facility] Chloride [Moles/Vol] 101 mmol/L 98 - 107 mmol/L [facility] CO2 [Moles/Vol] 27 mmol/L 20 - 31 mmol/L [facility] Creatinine [Mass/Vol] 2.3 mg/dL High 0.7 - 1.2 mg/dL [facility] Est, Glom Filt Rate 28 Low - PINF [facility] Comment on above: These results [...] 85 mg/dL 74 - 99 mg/dL [facility] Interpretation and review of laboratory results Abnormal [facility] Potassium [Moles/Vol] 4.0 mmol/L 3.7 - 5.3 mmol/L [facility] Protein [Mass/Vol] 6.5 g/dL Low 6.6 - 8.7 g/dL [facility] Sodium [Moles/Vol] 139 mmol/L 136 - 145 mmol/L [facility] Urea nitrogen [Mass/Vol] 33 mg/dL High 8 - 23 mg/dL [facility] Albumin [Mass/Vol] 3.6 g/dL 3.5 - 5.2 g/dL [facility] ALP [Catalytic activity/Vol] 124 U/L 40 - 129 U/L [facility] [facility] ALT [Catalytic activity/Vol] 21 U/L 10 - 50 U/L [facility] Anion gap [Moles/Vol] 11 mmol/L 9 - 16 mmol/L [facility] AST [Catalytic activity/Vol] 26 U/L 10 - 50 U/L [facility] Bilirubin [Mass/Vol] 0.8 mg/dL 0.0 - 1.2 mg/dL [facility] Calcium [Mass/Vol] 9.2 mg/dL 8.6 - 10. 4 mg/dL [facility] Chloride [Moles/Vol] 102 mmol/L 98 - 107 mmol/L [facility] CO2 [Moles/Vol] 29 mmol/L 20 - 31 mmol/L [facility] Creatinine [Mass/Vol] 2.4 mg/dL High 0.7 - 1.2 mg/dL [facility] Est, Glom Filt Rate 26 Low - PINF [facility] Comment on above: These results [...] 84 mg/dL 74 - 99 mg/dL [facility] Interpretation and review of laboratory results Abnormal [facility] Potassium [Moles/Vol] 3.9 mmol/L 3.7 - 5.3 mmol/L [facility] Protein [Mass/Vol] 6.4 g/dL Low 6.6 - 8.7 g/dL [facility] Sodium [Moles/Vol] 142 mmol/L 136 - 145 mmol/L [facility] Urea nitrogen [Mass/Vol] 33 mg/dL High 8 - 23 mg/dL [facility] Magnesiumon 10-27-2024 Magnesium [Mass/Vol] 2.3 mg/dL 1.6 - 2.4 mg/dL [facility] No Panel Informationon 10-27 [facility] Phosphoruson 10-27-2024 Phosphate [Mass/Vol] 3.0 mg/dL 2.5 - 4.5 mg/dL [facility] Portable XR Chest AP single viewon 10-26-2024 [...] No pneumothorax. 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 [facility] Raymond Minaya M D - [...] left pleural effusion with associated atelectasis. [facility] Radiology Study observation (narrative) [facility] Portable XR Chest AP single viewOrdered By: Raymond Minaya on 10-26-2024 [facility] Work Phone: XR CHEST PORTABLEon 10-26-19 XR [...] Raymond Minaya MD 10/26/24 Final result Normal [facility] Comprehensive Metabolic Pane aldo 10-25-2024 Albumin [Mass/Vol] 3.6 g/dL 3.5 - 5.2 g/dL [facility] ALP [Catalytic activity/Vol] 121 U/L 40 - 129 U/L [facility] ALT [Catalytic activity/Vol] 21 U/L 10 - 50 U/L [facility] Anion gap [Moles/Vol] 12 mmol/L 9 - 16 mmol/L [facility] AST [Catalytic activity/Vol] 29 U/L 10 - 50 U/L [facility] Bilirubin [Mass/Vol] 0.9 mg/dL 0.0 - 1.2 mg/dL [facility] Calcium [Mass/Vol] 9.3 mg/dL 8.6 - 10. 4 mg/dL [facility] Chloride [Moles/Vol] 101 mmol/L 98 - 107 mmol/L [facility] CO2 [Moles/Vol] 24 mmol/L 20 - 31 mmol/L [facility] Creatinine [Mass/Vol] 2.2 mg/dL High 0.7 - 1.2 mg/dL [facility] Michelle Mathews Rate 29 Low - PINF [facility] Comment on above: These results [...] 92 mg/dL 74 - 99 mg/dL [facility] Potassium [Moles/Vol] 4.7 mmol/L 3.7 - 5.3 mmol/L [facility] Comment on above: Specimen hemolysis h as exceeded the interference as defined by Karoline. Value may be falsely increased. Suggest recollection if clinically indicated. Protein [Mass/Vol] 6.5 g/dL Low 6.6 - 8.7 g/dL [facility] Sodium [Moles/Vol] 137 mmol/L 136 - 145 mmol/L [facility] Urea nitrogen [Mass/Vol] 33 mg/dL High 8 - 23 mg/dL [facility] Magnesiumon 10-25-2024 Magnesium [Mass/Vol] 2.5 mg/dL High 1.6 - 2.4 mg/dL [facility] No Panel Informationon 10-25 Interpretation and review of laboratory results Abnormal [facility] Comprehensive Metabolic Pane aldo 10-24-2024 Albumin [Mass/Vol] 3.6 g/dL 3.5 - 5.2 g/dL [facility] ALP [Catalytic activity/Vol] 123 U/L 40 - 129 U/L [facility] ALT [Catalytic activity/Vol] 25 U/L 10 - 50 U/L [facility] Anion gap [Moles/Vol] 12 mmol/L 9 - 16 mmol/L [facility] AST [Catalytic activity/Vol] 24 U/L 10 - 50 U/L [facility] Bilirubin [Mass/Vol] 0.7 mg/dL 0.0 - 1.2 mg/dL [facility] Calcium [Mass/Vol] 9.0 mg/dL 8.6 - 10. 4 mg/dL [facility] Chloride [Moles/Vol] 99 mmol/L 98 - 107 mmol/L [facility] CO2 [Moles/Vol] 29 mmol/L 20 - 31 mmol/L [facility] Creatinine [Mass/Vol] 2.2 mg/dL High 0.7 - 1.2 mg/dL [facility] Est, Glom Filt Rate 29 Low - PINF [facility] Comment on above: These results [...] 81 mg/dL 74 - 99 mg/dL [facility] Interpretation and review of laboratory results Abnormal [facility] Potassium [Moles/Vol] 3.6 mmol/L Low 3.7 - 5.3 mmol/L [facility] Protein [Mass/Vol] 6.3 g/dL Low 6.6 - 8.7 g/dL [facility] Sodium [Moles/Vol] 140 mmol/L 136 - 145 mmol/L [facility] Urea nitrogen [Mass/Vol] 34 mg/dL High 8 - 23 mg/dL [facility] Portable XR Chest AP single viewon 10-24-2024 [...] Stable cardiac silhouette. Osseous structures are stable. [facility] RIS CONSOLID[facility] Mary Kim MD - 10/24/2024 EXAMINATION: [...] interval change in left pleural effusion. [facility] Radiology Study observation (narrative) [facility] Portable XR Chest AP single viewOrdered By: Mary Kim on 10-24-2024 [facility] [employer] Work Phone: XR CHEST PORTABLEon 10-24-19 XR [...] Mary Kim MD 10/24/24 Final result Normal [facility] Comprehensive Metabolic Pane aldo 10-23-2024 Albumin [Mass/Vol] 3.6 g/dL 3.5 - 5.2 g/dL [facility] ALP [Catalytic activity/Vol] 124 U/L 40 - 129 U/L [facility] ALT [Catalytic activity/Vol] 24 U/L 10 - 50 U/L [facility] Anion gap [Moles/Vol] 8 mmol/L Low 9 - 16 mmol/L [facility] AST [Catalytic activity/Vol] 24 U/L 10 - 50 U/L [facility] Bilirubin [Mass/Vol] 0.8 mg/dL 0.0 - 1.2 mg/dL [facility] Calcium [Mass/Vol] 9.0 mg/dL 8.6 - 10. 4 mg/dL [facility] Chloride [Moles/Vol] 102 mmol/L 98 - 107 mmol/L [facility] CO2 [Moles/Vol] 30 mmol/L 20 - 31 mmol/L [facility] Creatinine [Mass/Vol] 2.2 mg/dL High 0.7 - 1.2 mg/dL [facility] Est, Glom Filt Rate 29 Low - PINF [facility] Comment on above: These results [...] 94 mg/dL 74 - 99 mg/dL [facility] Interpretation and review of laboratory results Abnormal [facility] Potassium [Moles/Vol] 3.9 mmol/L 3.7 - 5.3 mmol/L [facility] Protein [Mass/Vol] 6.7 g/dL 6.6 - 8.7 g/dL [facility] Sodium [Moles/Vol] 140 mmol/L 136 - 145 mmol/L [facility] Urea nitrogen [Mass/Vol] 34 mg/dL High 8 - 23 mg/dL [facility] XR CHEST 1 VIEWon 10-23-2024 XR CHEST [...] Lauren Felder MD 10/23/24 Final result Normal [facility] XR Chest Single viewon 10-23 1. Moderate [...] changes. 2. Cardiomegaly and perihilar congestion. [facility] Radiology Study observation (narrative) [facility] XR Chest Single viewOrdered By: Lauren Felder on 10-23-2024 [facility] Work Phone: Comprehensive Metabolic Pane aldo 10-22-2024 Albumin [Mass/Vol] 3.7 g/dL 3.5 - 5.2 g/dL [facility] ALP [Catalytic activity/Vol] 135 U/L High 40 - 129 U/L [facility] ALT [Catalytic activity/Vol] 33 U/L 10 - 50 U/L [facility] Anion gap [Moles/Vol] 10 mmol/L 9 - 16 mmol/L [facility] AST [Catalytic activity/Vol] 32 U/L 10 - 50 U/L [facility] Bilirubin [Mass/Vol] 0.8 mg/dL 0.0 - 1.2 mg/dL [facility] Calcium [Mass/Vol] 9.0 mg/dL 8.6 - 10. 4 mg/dL [facility] Chloride [Moles/Vol] 102 mmol/L 98 - 107 mmol/L [facility] CO2 [Moles/Vol] 29 mmol/L 20 - 31 mmol/L [facility] Creatinine [Mass/Vol] 2.1 mg/dL High 0.7 - 1.2 mg/dL [facility] Est, Glom Filt Rate 31 Low - PINF [facility] Comment on above: These results [...] 84 mg/dL 74 - 99 mg/dL [facility] Interpretation and review of laboratory results Abnormal [facility] Potassium [Moles/Vol] 3.7 mmol/L 3.7 - 5.3 mmol/L [facility] Protein [Mass/Vol] 6.5 g/dL Low 6.6 - 8.7 g/dL [facility] Sodium [Moles/Vol] 141 mmol/L 136 - 145 mmol/L [facility] Urea nitrogen [Mass/Vol] 35 mg/dL High 8 - 23 mg/dL [facility] Comprehensive Metabolic Pane aldo 10-21-2024 Albumin [Mass/Vol] 3.6 g/dL 3.5 - 5.2 g/dL [facility] ALP [Catalytic activity/Vol] 124 U/L 40 - 129 U/L [facility] ALT [Catalytic activity/Vol] 31 U/L 10 - 50 U/L [facility] Anion gap [Moles/Vol] 12 mmol/L 9 - 16 mmol/L [facility] AST [Catalytic activity/Vol] 29 U/L 10 - 50 U/L [facility] Bilirubin [Mass/Vol] 0.8 mg/dL 0.0 - 1.2 mg/dL [facility] Calcium [Mass/Vol] 8.9 mg/dL 8.6 - 10. 4 mg/dL [facility] Chloride [Moles/Vol] 101 mmol/L 98 - 107 mmol/L [facility] CO2 [Moles/Vol] 25 mmol/L 20 - 31 mmol/L [facility] Creatinine [Mass/Vol] 2.1 mg/dL High 0.7 - 1.2 mg/dL [facility] Est, Glom Filt Rate 31 Low - PINF [facility] Comment on above: These results [...] 91 mg/dL 74 - 99 mg/dL [facility] Interpretation and review of laboratory results Abnormal [facility] Potassium [Moles/Vol] 4.1 mmol/L 3.7 - 5.3 mmol/L [facility] Comment on above: Specimen hemolysis h as exceeded the interference as defined by Karoline. Value may be falsely increased. Suggest recollection if clinically indicated. Protein [Mass/Vol] 6.4 g/dL Low 6.6 - 8.7 g/dL [facility] Sodium [Moles/Vol] 138 mmol/L 136 - 145 mmol/L [facility] Urea nitrogen [Mass/Vol] 37 mg/dL High 8 - 23 mg/dL [facility] US ABDOMEN LIMITEDon 025 US ABDOMEN LIMITED [...] Theo Latif DO 10/21/24 Final result Normal [facility] US Abdomen limitedon 025 Small volume ascites . [facility] RIS CONSOLIDATED EXAMINATION: Limited abdominal QUADRANT ULTRASOUND 10/21/2024 5:47 pm COMPARISON: None. HISTORY: ORDERING SYSTEM PROVIDED HISTORY: evaluate for ascites TECHNOLOGIST PROVIDED HISTORY: Reason for Exam:->Abdomen distended, weight gain. please evaluate for abdominal ascites, if significant we may need to get paracentesis. Height:182.9cm Weight:78.926kg evaluate for ascites FINDINGS: Free fluid in all 4 quadrants, small volume and greatest in the bilateral upper quadrants. [facility] CONSOL[facility] Theo Latif DO - 10/21/2024 EXAMINATION: [...] bilateral upper quadrants. IMPRESSION: Small volume ascites. [facility] (narrative[facility] [employer] US Abdomen limitedOrdered By : Theo Latif on 10-21-2024 [facility] [employer] Work Phone: Comprehensive Metabolic Pane aldo 10-20-2024 Albumin [Mass/Vol] 3.5 g/dL 3.5 - 5.2 g/dL [facility] [employer] ALP [Catalytic activity/Vol] 115 U/L 40 - 129 U/L [facility] [employer] ALT [Catalytic activity/Vol] 34 U/L 10 - 50 U/L [facility] [employer] Anion gap [Moles/Vol] 11 mmol/L 9 - 16 mmol/L [facility] [employer] AST [Catalytic activity/Vol] 27 U/L 10 - 50 U/L [facility] [employer] Bilirubin [Mass/Vol] 0.7 mg/dL 0.0 - 1.2 mg/dL [facility] [employer] Calcium [Mass/Vol] 9.1 mg/dL 8.6 - 10. 4 mg/dL [facility] [employer] Chloride [Moles/Vol] 100 mmol/L 98 - 107 mmol/L [facility] [employer] CO2 [Moles/Vol] 27 mmol/L 20 - 31 mmol/L [facility] [employer] Creatinine [Mass/Vol] 2.1 mg/dL High 0.7 - 1.2 mg/dL [facility] Est, Glom Filt Rate 31 Low - PINF [facility] [employer] Comment on above: These results are not [...] 91 mg/dL 74 - 99 mg/dL [facility] Interpretation and review of laboratory results Abnormal [facility] Potassium [Moles/Vol] 4.2 mmol/L 3.7 - 5.3 mmol/L [facility] Protein [Mass/Vol] 6.4 g/dL Low 6.6 - 8.7 g/dL [facility] Sodium [Moles/Vol] 138 mmol/L 136 - 145 mmol/L [facility] Urea nitrogen [Mass/Vol] 36 mg/dL High 8 - 23 mg/dL [facility] CBCon 10-19-2024 Erythrocyte distribution width (RBC) [Ratio] 25.1 % High 11.5 - 14.9 % [facility] Hematocrit (Bld) [Volume fraction] 32.8 % Low 41 - 53 % [facility] Hemoglobin (Bld) [Mass/Vol] 10.4 g/dL Low 13.5 - 17.5 g/dL [facility] Interpretation and review of laboratory results Abnormal [facility] MCH (RBC) [Entitic mass] 28.9 pg 26 - 34 pg [facility] MCHC (RBC) [Mass/Vol] 31.8 g/dL 31 - 37 g/dL [facility] MCV (RBC) [Entitic vol] 90.8 fL 80 - 100 fL [facility] Platelet mean volume (Bld) [Entitic vol] 8.4 fL 6.0 - 12.0 fL [facility] Platelets (Bld) [#/Vol] 163 10*3/uL [facility] RBC (Bld) [#/Vol] 3.61 10*6/uL Low 4.5 - 5.9 m/uL [facility] WBC other (Bld) [#/Vol] 3.8 [facility] Comprehensive Metabolic Pane aldo 10-19-2024 Albumin [Mass/Vol] 3.5 g/dL 3.5 - 5.2 g/dL [facility] ALP [Catalytic activity/Vol] 119 U/L 40 - 129 U/L [facility] ALT [Catalytic activity/Vol] 37 U/L 10 - 50 U/L [facility] Anion gap [Moles/Vol] 11 mmol/L 9 - 16 mmol/L [facility] AST [Catalytic activity/Vol] 27 U/L 10 - 50 U/L [facility] Bilirubin [Mass/Vol] 0.8 mg/dL 0.0 - 1.2 mg/dL [facility] Calcium [Mass/Vol] 8.9 mg/dL 8.6 - 10. 4 mg/dL [facility] Chloride [Moles/Vol] 100 mmol/L 98 - 107 mmol/L [facility] CO2 [Moles/Vol] 25 mmol/L 20 - 31 mmol/L [facility] Creatinine [Mass/Vol] 2.1 mg/dL High 0.7 - 1.2 mg/dL [facility] Est, Glom Filt Rate 31 Low - PINF [facility] Comment on above: These results [...] 81 mg/dL 74 - 99 mg/dL [facility] Interpretation and review of laboratory results Abnormal [facility] Potassium [Moles/Vol] 4.2 mmol/L 3.7 - 5.3 mmol/L [facility] Protein [Mass/Vol] 6.3 g/dL Low 6.6 - 8.7 g/dL [facility] Sodium [Moles/Vol] 136 mmol/L 136 - 145 mmol/L [facility] Urea nitrogen [Mass/Vol] 34 mg/dL High 8 - 23 mg/dL [facility] Magnesiumon 10-19-2024 Magnesium [Mass/Vol] 2.2 mg/dL 1.6 - 2.4 mg/dL [facility] No Panel Informationon 10-19 [facility] Phosphoruson 10-19-2024 Phosphate [Mass/Vol] 2.6 mg/dL 2.5 - 4.5 mg/dL [facility] CBCon 10-18-2024 Erythrocyte distribution width (RBC) [Ratio] 24.8 % High 11.5 - 14.9 % [facility] Hematocrit (Bld) [Volume fraction] 34.3 % Low 41 - 53 % [facility] Hemoglobin (Bld) [Mass/Vol] 10.7 g/dL Low 13.5 - 17.5 g/dL [facility] Interpretation and review of laboratory results Abnormal [facility] MCH (RBC) [Entitic mass] 28.8 pg 26 - 34 pg [facility] MCHC (RBC) [Mass/Vol] 31.3 g/dL 31 - 37 g/dL [facility] MCV (RBC) [Entitic vol] 91.9 fL 80 - 100 fL [facility] Platelet mean volume (Bld) [Entitic vol] 8.0 fL 6.0 - 12.0 fL [facility] Platelets (Bld) [#/Vol] 176 10*3/uL [facility] RBC (Bld) [#/Vol] 3.73 10*6/uL Low 4.5 - 5.9 m/uL [facility] WBC other (Bld) [#/Vol] 3.7 [facility] Comprehensive Metabolic Pane aldo 10-18-2024 Albumin [Mass/Vol] 3.6 g/dL 3.5 - 5.2 g/dL [facility] ALP [Catalytic activity/Vol] 121 U/L 40 - 129 U/L [facility] ALT [Catalytic activity/Vol] 42 U/L 10 - 50 U/L [facility] Anion gap [Moles/Vol] 12 mmol/L 9 - 16 mmol/L [facility] AST [Catalytic activity/Vol] 25 U/L 10 - 50 U/L [facility] Bilirubin [Mass/Vol] 0.9 mg/dL 0.0 - 1.2 mg/dL [facility] Calcium [Mass/Vol] 8.6 mg/dL 8.6 - 10. 4 mg/dL [facility] Chloride [Moles/Vol] 102 mmol/L 98 - 107 mmol/L [facility] CO2 [Moles/Vol] 25 mmol/L 20 - 31 mmol/L [facility] Creatinine [Mass/Vol] 2.0 mg/dL High 0.7 - 1.2 mg/dL [facility] Est, Michelle Filt Rate 33 Low - PINF [facility] Comment on above: These results [...] mg/dL High 74 - 99 mg/dL [facility] Interpretation and review of laboratory results Abnormal [facility] Potassium [Moles/Vol] 4.2 mmol/L 3.7 - 5.3 mmol/L [facility] Protein [Mass/Vol] 6.3 g/dL Low 6.6 - 8.7 g/dL [facility] Sodium [Moles/Vol] 139 mmol/L 136 - 145 mmol/L [facility] Urea nitrogen [Mass/Vol] 34 mg/dL High 8 - 23 mg/dL [facility] Magnesiumon 10-18-2024 Magnesium [Mass/Vol] 2.2 mg/dL 1.6 - 2.4 mg/dL [facility] No Panel Informationon 10-18 [facility] CBC WITH AUTO DIFFERENTIALon 10-17-2024 Erythrocyte distribution width (RBC) [Ratio] 23.5 % High 11.5-15.0 [facility] Comment on above: Performed By: #### L [id number] ####[facility] ([facility])[address] [place] [address] ERYTHROCYTE MEAN CORPUSCULAR HEMOGLOBIN CONCENTRATION (G/DL) BY AUTOMATED 31.2 g/dL Low 32.0-35.0 [facility] Comment on above: Performed By: #### L [id number] ####[facility] ([facility] [place] [address] Hematocrit (Bld) [Volume fraction] 32.4 % Low 39.0-55.0 [facility] Comment on above: Performed By: #### L [id number] ####[facility] ([facility] [place] [address] Hemoglobin (Bld) [Mass/Vol] 10.1 g/dL Low 13.0-17.0 [facility] Comment on above: Performed By: #### L [id number] ####[facility] ([facility] [place] [address] MCH (RBC) [Entitic mass] 28.5 pg Normal 27.0-33.0 [facility] Comment on above: Performed By: #### L [id number] ####[facility] ([facility] [place] [address] MCV (RBC) [Entitic vol] 91.3 fL Normal 82.0-98.0 [facility] Comment on above: Performed By: #### L [id number] ####[facility] ([facility] [place] [address] NRBC (PER 100 WBCS) BY AUTOMATED COUNT 0.0 % Normal 0 [facility] Comment on above: Performed By: #### L [id number] ####[facility] ([facility] [place] [address] PLATELETS (10*3/UL) IN BLOOD AUTOMATED COUNT 174 10*3/uL Normal 150-400 [facility] Comment on above: Performed By: #### L [id number] ####[facility] ([facility])[address] [place] [address] RBC (Bld) [#/Vol] 3.55 10*6/uL Low 4.20-5.70 [facility] Comment on above: Performed By: #### L [id number] ####[facility] ([facility])[address] [place] [address] WBC (Bld) [#/Vol] 3.78 10*3/uL Low 4.00-10.60 [facility] Comment on above: Performed By: #### L [id number] ####[facility] ([facility])[address] [place] [address] COMPREHENSIVE METABOLIC PANE Aldo 10-17-2024 Albumin [Mass/Vol] 3.5 g/dL Normal 3.5-5.7 [facility] Comment on above: Performed By: #### L [id number] ####[facility] ([facility])[address] [place] [address] ALP [Catalytic activity/Vol] 102 U/L Normal 34-104 [facility] Comment on above: Performed By: #### L [id number] ####[facility] ([facility])[address] [place] [address] ALT [Catalytic activity/Vol] 29 U/L Normal 7-52 [facility] Comment on above: Performed By: #### L [id number] ####[facility] ([facility])[address] [place] [address] Anion gap [Moles/Vol] 9 mmol/L Normal 7-20 [facility] Comment on above: Performed By: #### L [id number] ####[facility] ([facility])[address] [place] [address] AST [Catalytic activity/Vol] 16 U/L Normal 13-39 [facility] Comment on above: Performed By: #### L [id number]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 [address] RBC (Bld) [#/Vol] 3.66 10*6/uL Low 4.20-5.70 [facility] Comment on above: Performed By: #### L [id number] ####[facility] ([facility])[address] [place] [address] WBC (Bld) [#/Vol] 4.77 10*3/uL Normal 4.00-10.60 [facility] Comment on above: Performed By: #### L [id number] ####[facility] ([facility])[address] [place] [address] COMPREHENSIVE METABOLIC PANE Aldo 10-14-2024 Albumin [Mass/Vol] 3.9 g/dL Normal 3.5-5.7 [facility] Comment on above: Performed By: #### L [id number] ####[facility] ([facility])[address] [place] [address] ALP [Catalytic activity/Vol] 85 U/L Normal 34-104 [facility] Comment on above: Performed By: #### L [id number] ####[facility] ([facility])[address] [place] [address] ALT [Catalytic activity/Vol] 44 U/L Normal 7-52 [facility] Comment on above: Performed By: #### L [id number] ####[facility] ([facility])[address] [place] [address] Anion gap [Moles/Vol] 11 mmol/L Normal 7-20 [facility] Comment on above: Performed By: #### L [id number] ####[facility] ([facility])[address] [place] [address] AST [Catalytic activity/Vol] 19 U/L Normal 13-39 [facility] Comment on above: Performed By: #### L [id number] ####[facility] ([facility])[address] [place] [address] Bilirubin [Mass/Vol] 1.5 mg/dL High 0.3-1.0 [facility] Comment on above: Performed By: #### L [id number] ####[facility] ([facility])[address] [place] [address] Calcium [Mass/Vol] 9.0 mg/dL Normal 8.6-10.3 [facility] Comment on above: Performed By: #### L [id number] ####[facility] ([facility])[address] [place] [address] Chloride [Moles/Vol] 100 mmol/L Normal 98-107 [facility] Comment on above: Performed By: #### L [id number] ####[facility] ([facility])[address] [place] [address] CO2 [Moles/Vol] 27 mmol/L Normal 21-31 [facility] Comment on above: Performed By: #### L [id number] ####[facility] ([facility])[address] [place] [address] Creatinine [Mass/Vol] 2.46 mg/dL High 0.70-1.30 [facility] Comment on above: Performed By: #### L [id number] ####[facility] ([facility])[address] [place] [address] GLOMERULAR FILTRATION RATE ML/MIN/1.73 SQ M.PREDICTED 25.5 mL/min/1.73m*2 Low >60.0 [facility] Comment on above: Result Comment: The [facility]???s estimated glomerular filtration rate (eGFR) will no [...] of individuals. Performed By: #### L [id number] ####[facility] ([facility])[address] [place] [address] Glucose [Mass/Vol] 94 mg/dL Normal 70-100 [facility] Comment on above: Performed By: #### L [id number] ####[facility] ([facility])[address] [place] [address] Potassium [Moles/Vol] 4.3 mmol/L Normal 3.5-5.1 [facility] Comment on above: Performed By: #### L [id number] ####[facility] ([facility])[address] [place] [address] Protein [Mass/Vol] 6.2 g/dL Normal 6.0-8.3 [facility] Comment on above: Performed By: #### L [id number] ####[facility] ([facility])[address] [place] [address] Sodium [Moles/Vol] 134 mmol/L Low 136-145 [facility] Comment on above: Performed By: #### L [id number] ####[facility] ([facility])[address] [place] [address] Urea nitrogen [Mass/Vol] 43 mg/dL High 7-25 [facility] Comment on above: Performed By: #### L [id number] ####[facility] ([facility])[address] [place] [address] UREA NITROGEN/CREATININE (MASS RATIO) IN SER/PLAS 17.5 Normal [facility] Comment on above: Performed By: #### L [id number] ####[facility] ([facility])[address] [place] [address] MAGNESIUMon 10-14-2024 Magnesium [Mass/Vol] 2.3 mg/dL Normal 1.9-2.7 [facility] Comment on above: Performed By: #### L [id number] ####[facility] ([facility])[address] [place] [address] MANUAL DIFFERENTIALon 2024 ACANTHOCYTES PRESENCE IN BLOOD BY LIGHT MICROSCOPY Moderate Normal [facility] Comment on above: Performed By: #### L [id number] ####[facility] ([facility])[address] [place] [address] ANISOCYTOSIS PRESENCE IN BLOOD BY LIGHT MICROSCOPY Moderate Normal [facility] Comment on above: Performed By: #### L [id number] ####[facility] ([facility])[address] [place] [address] BASOPHILS (10*3/UL) IN BLOOD BY CALCULATION 0.04 10*3/uL Normal 0.00-0.20 [facility] Comment on above: Performed By: #### L [id number] ####[facility] ([facility])[address] [place] [address] BASOPHILS/100 LEUKOCYTES IN BLOOD BY AUTOMATED COUNT 0.8 % Normal 0.0-1.0 [facility] Comment on above: Performed By: #### L [id number] ####[facility] ([facility])[address] [place] [address] ELLIPTOCYTES IN BLOOD BY LIGHT MICROSCOPY Slight Normal [facility] Comment on above: Performed By: #### L [id number] ####[facility] ([facility])[address] [place] [address] EOSINOPHILS (10*3/UL) IN BLOOD BY CALCULATION 0.14 10*3/uL Normal 0.00-0.50 [facility] Comment on above: Performed By: #### L [id number] ####[facility] ([facility])[address] [place] [address] EOSINOPHILS/100 LEUKOCYTES IN BLOOD BY AUTOMATED COUNT 2.9 % Normal 0.0-6.0 [facility] Comment on above: Performed By: #### L [id number] ####[facility] ([facility])[address] [place] [address] IMMATURE GRANULOCYTES (10*3/UL) IN BLOOD BY CALCULATION 0.03 10*3/uL Normal 0.00-0.20 [facility] Comment on above: Performed By: #### L [id number] ####[facility] ([facility])[address] [place] [address] IMMATURE GRANULOCYTES/100 LEUKOCYTES IN BLOOD BY AUTOMATED COUNT 0.6 % Normal 0.0-1.0 [facility] Comment on above: Performed By: #### L [id number] ####[facility] ([facility])[address] [place] [address] LYMPHOCYTES (10*3/UL) IN BLOOD BY CALCULATION 0.78 10*3/uL Low 1.20-4.00 [facility] Comment on above: Performed By: #### L [id number] ####[facility] ([facility])[address] [place] [address] LYMPHOCYTES/100 LEUKOCYTES IN BLOOD BY AUTOMATED COUNT 16.4 % Low 20.0-45.0 [facility] Comment on above: Performed By: #### L [id number] ####[facility] ([facility])[address] [place] [address] MONOCYTES (10*3/UL) IN BLOOD BY CALCUATION 0.57 10*3/uL Normal 0.10-1.00 [facility] Comment on above: Performed By: #### L [id number] ####[facility] ([facility])[address] [place] [address] MONOCYTES/100 LEUKOCYTES IN BLOOD BY AUTOMATED COUNT 11.9 % Normal 5.0-12.0 [facility] Comment on above: Performed By: #### L [id number] ####[facility] ([facility])[address] [place] [address] NEUTROPHILS (10*3/UL) IN BLOOD BY CALCULATION 3.2 10*3/uL Normal 1.6-7.6 [facility] Comment on above: Performed By: #### L [id number] ####[facility] ([facility])[address] [place] [address] NEUTROPHILS/100 LEUKOCYTES IN BLOOD BY AUTOMATED COUNT 67.4 % Normal 40.0-72.0 [facility] Comment on above: Performed By: #### L [id number] ####[facility] ([facility])[address] [place] [address] OVALOCYTES PRESENCE IN BLOOD BY LIGHT MICROSCOPY Slight Normal [facility] Comment on above: Performed By: #### L [id number] ####[facility] ([facility])[address] [place] [address] POIKILOCYTOSIS (PRESENCE) IN BLOOD BY LIGHT MICROSCOPY Moderate Normal [facility] Comment on above: Performed By: #### L [id number] ####[facility] ([facility])[address] [place] [address] POLYCHROMASIA IN BLOOD BY LIGHT MICROSCOPY Slight Normal [facility] Comment on above: Performed By: #### L [id number] ####[facility] ([facility])[address] [place] [address] SCHISTOCYTES (PRESENCE) IN BLOOD BY LIGHT MICROSCOPY Slight Normal [facility] Comment on above: Performed By: #### L [id number] ####[facility] ([facility])[address] [place] [address] 30on 10-13-2024 30 Normal [facility] 30 Normal [facility] CBC WITH AUTO DIFFERENTIALon 10-13-2024 Erythrocyte distribution width (RBC) [Ratio] 24.3 % High 11.5-15.0 [facility] Comment on above: Performed By: #### L [id number] ####[facility] ([facility])[address] [place] [address] ERYTHROCYTE MEAN CORPUSCULAR HEMOGLOBIN CONCENTRATION (G/DL) BY AUTOMATED 30.5 g/dL Low 32.0-35.0 [facility] Comment on above: Performed By: #### L [id number] ####[facility] ([facility])[address] [place] [address] Hematocrit (Bld) [Volume fraction] 34.7 % Low 39.0-55.0 [facility] Comment on above: Performed By: #### L [id number] ####[facility] ([facility])[address] [place] [address] Hemoglobin (Bld) [Mass/Vol] 10.6 g/dL Low 13.0-17.0 [facility] Comment on above: Performed By: #### L [id number] ####[facility] ([facility])[address] [place] [address] MCH (RBC) [Entitic mass] 28.1 pg Normal 27.0-33.0 [facility] Comment on above: Performed By: #### L [id number] ####[facility] ([facility])[address] [place] [address] MCV (RBC) [Entitic vol] 92.0 fL Normal 82.0-98.0 [facility] Comment on above: Performed By: #### L [id number] ####[facility] ([facility])[address] [place] [address] NRBC (PER 100 WBCS) BY AUTOMATED COUNT 0.0 % Normal 0 [facility] Comment on above: Performed By: #### L [id number] ####[facility] ([facility])[address] [place] [address] PLATELETS (10*3/UL) IN BLOOD AUTOMATED COUNT 158 10*3/uL Normal 150-400 [facility] Comment on above: Performed By: #### L [id number] ####[facility] ([facility])[address] [place] [address] RBC (Bld) [#/Vol] 3.77 10*6/uL Low 4.20-5.70 [facility] Comment on above: Performed By: #### L [id number] ####[facility] ([facility])[address] [place] [address] WBC (Bld) [#/Vol] 4.58 10*3/uL Normal 4.00-10.60 [facility] Comment on above: Performed By: #### L [id number] ####[facility] ([facility])[address] [place] [address] COMPREHENSIVE METABOLIC PANE Aldo 10-13-2024 Albumin [Mass/Vol] 3.5 g/dL Normal 3.5-5.7 [facility] Comment on above: Performed By: #### L [id number] ####[facility] ([facility] [place] [address] ALP [Catalytic activity/Vol] 99 U/L Normal 34-104 [facility] Comment on above: Performed By: #### L [id number] ####[facility] ([facility])[address] [place] [address] ALT [Catalytic activity/Vol] 63 U/L High 7-52 [facility] Comment on above: Performed By: #### L [id number] ####[facility] ([facility])[address] [place] [address] Anion gap [Moles/Vol] 13 mmol/L Normal 7-20 [facility] Comment on above: Performed By: #### L [id number] ####[facility] ([facility])[address] [place] [address] AST [Catalytic activity/Vol] 21 U/L Normal 13-39 [facility] Comment on above: Performed By: #### L [id number] ####[facility] ([facility])[address] [place] [address] Bilirubin [Mass/Vol] 1.4 mg/dL High 0.3-1.0 [facility] Comment on above: Performed By: #### L [id number] ####[facility] ([facility])[address] [place] [address] Calcium [Mass/Vol] 9.0 mg/dL Normal 8.6-10.3 [facility] Comment on above: Performed By: #### L [id number] ####[facility] ([facility])[address] [place] [address] Chloride [Moles/Vol] 100 mmol/L Normal 98-107 [facility] Comment on above: Performed By: #### L [id number] ####[facility] ([facility])[address] [place] [address] CO2 [Moles/Vol] 26 mmol/L Normal 21-31 [facility] Comment on above: Performed By: #### L [id number] ####[facility] ([facility])[address] [place] [address] Creatinine [Mass/Vol] 2.27 mg/dL High 0.70-1.30 [facility] Comment on above: Performed By: #### L [id number] ####[facility] ([facility])[address] [place] [address] GLOMERULAR FILTRATION RATE ML/MIN/1.73 SQ M.PREDICTED 28.1 mL/min/1.73m*2 Low >60.0 [facility] Comment on above: Result Comment: The [facility]???s estimated glomerular filtration rate (eGFR) will no [...] of individuals. Performed By: #### L [id number] ####[facility] ([facility])[address] [place] [address] Glucose [Mass/Vol] 89 mg/dL Normal 70-100 [facility] Comment on above: Performed By: #### L [id number] ####[facility] ([facility])[address] [place] [address] Potassium [Moles/Vol] 4.7 mmol/L Normal 3.5-5.1 [facility] Comment on above: Performed By: #### L [id number] ####[facility] ([facility])[address] [place] [address] Protein [Mass/Vol] 6.2 g/dL Normal 6.0-8.3 [facility] Comment on above: Performed By: #### L [id number] ####[facility] ([facility])[address] [place] [address] Sodium [Moles/Vol] 134 mmol/L Low 136-145 [facility] Comment on above: Performed By: #### L [id number] ####[facility] ([facility])[address] [place] [address] Urea nitrogen [Mass/Vol] 38 mg/dL High 7-25 [facility] Comment on above: Performed By: #### L [id number] ####[facility] ([facility])[address] [place] [address] UREA NITROGEN/CREATININE (MASS RATIO) IN SER/PLAS 16.7 Normal [facility] Comment on above: Performed By: #### L [id number] ####[facility] ([facility])[address] [place] [address] MAGNESIUMon 10-13-2024 Magnesium [Mass/Vol] 2.4 mg/dL Normal 1.9-2.7 [facility] Comment on above: Performed By: #### L [id number] ####[facility] ([facility])[address] [place] [address] MANUAL DIFFERENTIALon 2024 ANISOCYTOSIS PRESENCE IN BLOOD BY LIGHT MICROSCOPY Moderate Normal [facility] Comment on above: Performed By: #### L [id number] ####[facility] ([facility])[address] [place] [address] BASOPHILS (10*3/UL) IN BLOOD BY CALCULATION 0.04 10*3/uL Normal 0.00-0.20 [facility] Comment on above: Performed By: #### L [id number] ####[facility] ([facility])[address] [place] [address] BASOPHILS/100 LEUKOCYTES IN BLOOD BY AUTOMATED COUNT 0.9 % Normal 0.0-1.0 [facility] Comment on above: Performed By: #### L [id number] ####[facility] ([facility])[address] [place] [address] HAMZAH CELLS PRESENCE IN BLOOD BY LIGHT MICROSCOPY Slight Normal [facility] Comment on above: Performed By: #### L [id number] ####[facility] ([facility])[address] [place] [address] ELLIPTOCYTES IN BLOOD BY LIGHT MICROSCOPY Slight Normal [facility] Comment on above: Performed By: #### L [id number] ####[facility] ([facility])[address] [place] [address] EOSINOPHILS (10*3/UL) IN BLOOD BY CALCULATION 0.15 10*3/uL Normal 0.00-0.50 [facility] Comment on above: Performed By: #### L [id number] ####[facility] ([facility])[address] [place] [address] EOSINOPHILS/100 LEUKOCYTES IN BLOOD BY AUTOMATED COUNT 3.3 % Normal 0.0-6.0 [facility] Comment on above: Performed By: #### L [id number] ####[facility] ([facility] [place] [address] IMMATURE GRANULOCYTES (10*3/UL) IN BLOOD BY CALCULATION 0.02 10*3/uL Normal 0.00-0.20 [facility] Comment on above: Performed By: #### L [id number] ####[facility] ([facility])[address] [place] [address] IMMATURE GRANULOCYTES/100 LEUKOCYTES IN BLOOD BY AUTOMATED COUNT 0.4 % Normal 0.0-1.0 [facility] Comment on above: Performed By: #### L [id number] ####[facility] ([facility])[address] [place] [address] LYMPHOCYTES (10*3/UL) IN BLOOD BY CALCULATION 0.87 10*3/uL Low 1.20-4.00 [facility] Comment on above: Performed By: #### L [id number] ####[facility] ([facility])[address] [place] [address] LYMPHOCYTES/100 LEUKOCYTES IN BLOOD BY AUTOMATED COUNT 19.0 % Low 20.0-45.0 [facility] Comment on above: Performed By: #### L [id number] ####[facility] ([facility] [place] [address] MONOCYTES (10*3/UL) IN BLOOD BY CALCUATION 0.53 10*3/uL Normal 0.10-1.00 [facility] Comment on above: Performed By: #### L [id number] ####[facility] ([facility])[address] [place] [address] MONOCYTES/100 LEUKOCYTES IN BLOOD BY AUTOMATED COUNT 11.6 % Normal 5.0-12.0 [facility] Comment on above: Performed By: #### L [id number] ####[facility] ([facility] [place] [address] NEUTROPHILS (10*3/UL) IN BLOOD BY CALCULATION 3.0 10*3/uL Normal 1.6-7.6 [facility] Comment on above: Performed By: #### L [id number] ####[facility] ([facility])[address] [place] [address] NEUTROPHILS/100 LEUKOCYTES IN BLOOD BY AUTOMATED COUNT 64.8 % Normal 40.0-72.0 [facility] Comment on above: Performed By: #### L [id number] ####[facility] ([facility])[address] [place] [address] OVALOCYTES PRESENCE IN BLOOD BY LIGHT MICROSCOPY Slight Normal [facility] Comment on above: Performed By: #### L [id number] ####[facility] ([facility])[address] [place] [address] POIKILOCYTOSIS (PRESENCE) IN BLOOD BY LIGHT MICROSCOPY Moderate Normal [facility] Comment on above: Performed By: #### L [id number] ####[facility] ([facility])[address] [place] [address] POLYCHROMASIA IN BLOOD BY LIGHT MICROSCOPY Slight Normal [facility] Comment on above: Performed By: #### L [id number] ####[facility] ([facility])[address] [place] [address] SCHISTOCYTES (PRESENCE) IN BLOOD BY LIGHT MICROSCOPY Slight Normal [facility] Comment on above: Performed By: #### L [id number] ####[facility] ([facility])[address] [place] [address] 30on 10-12-2024 30 Normal [facility] 30 Normal [facility] 30 Normal [facility] CBC WITH AUTO DIFFERENTIALon 10-12-2024 Erythrocyte distribution width (RBC) [Ratio] 24.5 % High 11.5-15.0 [facility] Comment on above: Performed By: #### L [id number] ####[facility] ([facility])[address] [place] [address] ERYTHROCYTE MEAN CORPUSCULAR HEMOGLOBIN CONCENTRATION (G/DL) BY AUTOMATED 29.6 g/dL Low 32.0-35.0 [facility] Comment on above: Performed By: #### L [id number] ####[facility] ([facility])[address] [place] [address] Hematocrit (Bld) [Volume fraction] 35.5 % Low 39.0-55.0 [facility] Comment on above: Performed By: #### L [id number] ####[facility] ([facility])[address] [place] [address] Hemoglobin (Bld) [Mass/Vol] 10.5 g/dL Low 13.0-17.0 [facility] Comment on above: Performed By: #### L [id number] ####[facility] ([facility])[address] [place] [address] MCH (RBC) [Entitic mass] 28.2 pg Normal 27.0-33.0 [facility] Comment on above: Performed By: #### L [id number] ####[facility] ([facility])[address] [place] [address] MCV (RBC) [Entitic vol] 95.4 fL Normal 82.0-98.0 [facility] Comment on above: Performed By: #### L [id number] ####[facility] ([facility]AK[facility])[address] [place] [address] NRBC (PER 100 WBCS) BY AUTOMATED COUNT 0.0 % Normal 0 [facility] Comment on above: Performed By: #### L [id number] ####[facility] ([facility])[address] [place] [address] PLATELETS (10*3/UL) IN BLOOD AUTOMATED COUNT 152 10*3/uL Normal 150-400 [facility] Comment on above: Performed By: #### L [id number] ####[facility] ([facility])[address] [place] [address] RBC (Bld) [#/Vol] 3.72 10*6/uL Low 4.20-5.70 [facility] Comment on above: Performed By: #### L [id number] ####[facility] ([facility])[address] [place] [address] WBC (Bld) [#/Vol] 4.68 10*3/uL Normal 4.00-10.60 [facility] Comment on above: Performed By: #### L [id number] ####[facility] ([facility])[address] [place] [address] COMPREHENSIVE METABOLIC PANE Aldo 10-12-2024 Albumin [Mass/Vol] 3.5 g/dL Normal 3.5-5.7 [facility] Comment on above: Performed By: #### L [id number] ####[facility] ([facility] [place] [address] ALP [Catalytic activity/Vol] 103 U/L Normal 34-104 [facility] Comment on above: Performed By: #### L [id number] ####[facility] ([facility] [place] [address] ALT [Catalytic activity/Vol] 73 U/L High 7-52 [facility] Comment on above: Performed By: #### L [id number] ####[facility] ([facility] [place] [address] Anion gap [Moles/Vol] 9 mmol/L Normal 7-20 [facility] Comment on above: Performed By: #### L [id number] ####[facility] ([facility] [place] [address] AST [Catalytic activity/Vol] 23 U/L Normal 13-39 [facility] Comment on above: Performed By: #### L [id number] ####[facility] ([facility] [place] [address] Bilirubin [Mass/Vol] 1.6 mg/dL High 0.3-1.0 [facility] Comment on above: Performed By: #### L [id number] ####[facility] ([facility] [place] [address] Calcium [Mass/Vol] 9.1 mg/dL Normal 8.6-10.3 [facility] Comment on above: Performed By: #### L [id number] ####[facility] ([facility])[address] [place] [address] Chloride [Moles/Vol] 103 mmol/L Normal 98-107 [facility] Comment on above: Performed By: #### L [id number] ####[facility] ([facility])[address] [place] [address] CO2 [Moles/Vol] 29 mmol/L Normal 21-31 [facility] Comment on above: Performed By: #### L [id number] ####[facility] ([facility])[address] [place] [address] Creatinine [Mass/Vol] 2.30 mg/dL High 0.70-1.30 [facility] Comment on above: Performed By: #### L [id number] ####[facility] ([facility])[address] [place] [address] GLOMERULAR FILTRATION RATE ML/MIN/1.73 SQ M.PREDICTED 27.7 mL/min/1.73m*2 Low >60.0 [facility] Comment on above: Result Comment: The [facility]???s estimated glomerular filtration rate (eGFR) will no [...] of individuals. Performed By: #### L [id number] ####[facility] ([facility])[address] [place] [address] Glucose [Mass/Vol] 84 mg/dL Normal 70-100 [facility] Comment on above: Performed By: #### L [id number] ####[facility] ([facility])[address] [place] [address] Potassium [Moles/Vol] 4.8 mmol/L Normal 3.5-5.1 [facility] Comment on above: Performed By: #### L [id number] ####[facility] ([facility])[address] [place] [address] Protein [Mass/Vol] 6.1 g/dL Normal 6.0-8.3 [facility] Comment on above: Performed By: #### L [id number] ####[facility] ([facility])[address] [place] [address] Sodium [Moles/Vol] 136 mmol/L Normal 136-145 [facility] Comment on above: Performed By: #### L [id number] ####[facility] ([facility])[address] [place] [address] Urea nitrogen [Mass/Vol] 38 mg/dL High 7-25 [facility] Comment on above: Performed By: #### L [id number] ####[facility] ([facility])[address] [place] [address] UREA NITROGEN/CREATININE (MASS RATIO) IN SER/PLAS 16.5 Normal [facility] Comment on above: Performed By: #### L [id number] ####[facility] ([facility])[address] [place] [address] MANUAL DIFFERENTIALon 2024 ANISOCYTOSIS PRESENCE IN BLOOD BY LIGHT MICROSCOPY Moderate Normal [facility] Comment on above: Performed By: #### L [id number] ####[facility] ([facility])[address] [place] [address] BASOPHILS (10*3/UL) IN BLOOD BY CALCULATION 0.04 10*3/uL Normal 0.00-0.20 [facility] Comment on above: Performed By: #### L [id number] ####[facility] ([facility])[address] [place] [address] BASOPHILS/100 LEUKOCYTES IN BLOOD BY AUTOMATED COUNT 0.9 % Normal 0.0-1.0 [facility] Comment on above: Performed By: #### L [id number] ####[facility] ([facility])[address] [place] [address] HAMZAH CELLS PRESENCE IN BLOOD BY LIGHT MICROSCOPY Slight Normal [facility] Comment on above: Performed By: #### L [id number] ####[facility] ([facility])[address] [place] [address] ELLIPTOCYTES IN BLOOD BY LIGHT MICROSCOPY Slight Normal [facility] Comment on above: Performed By: #### L [id number] ####[facility] ([facility])[address] [place] [address] EOSINOPHILS (10*3/UL) IN BLOOD BY CALCULATION 0.13 10*3/uL Normal 0.00-0.50 [facility] Comment on above: Performed By: #### L [id number] ####[facility] ([facility])[address] [place] [address] EOSINOPHILS/100 LEUKOCYTES IN BLOOD BY AUTOMATED COUNT 2.8 % Normal 0.0-6.0 [facility] Comment on above: Performed By: #### L [id number] ####[facility] ([facility])[address] [place] [address] IMMATURE GRANULOCYTES (10*3/UL) IN BLOOD BY CALCULATION 0.03 10*3/uL Normal 0.00-0.20 [facility] Comment on above: Performed By: #### L [id number] ####[facility] ([facility])[address] [place] [address] IMMATURE GRANULOCYTES/100 LEUKOCYTES IN BLOOD BY AUTOMATED COUNT 0.6 % Normal 0.0-1.0 [facility] Comment on above: Performed By: #### L [id number] ####[facility] ([facility])[address] [place] [address] LYMPHOCYTES (10*3/UL) IN BLOOD BY CALCULATION 0.72 10*3/uL Low 1.20-4.00 [facility] Comment on above: Performed By: #### L [id number] ####[facility] ([facility])[address] [place] [address] LYMPHOCYTES/100 LEUKOCYTES IN BLOOD BY AUTOMATED COUNT 15.4 % Low 20.0-45.0 [facility] Comment on above: Performed By: #### L [id number] ####[facility] ([facility])[address] [place] [address] MONOCYTES (10*3/UL) IN BLOOD BY CALCUATION 0.51 10*3/uL Normal 0.10-1.00 [facility] Comment on above: Performed By: #### L [id number] ####[facility] ([facility])[address] [place] [address] MONOCYTES/100 LEUKOCYTES IN BLOOD BY AUTOMATED COUNT 10.9 % Normal 5.0-12.0 [facility] Comment on above: Performed By: #### L [id number] ####[facility] ([facility])[address] [place] [address] NEUTROPHILS (10*3/UL) IN BLOOD BY CALCULATION 3.2 10*3/uL Normal 1.6-7.6 [facility] Comment on above: Performed By: #### L [id number] ####[facility] ([facility])[address] [place] [address] NEUTROPHILS/100 LEUKOCYTES IN BLOOD BY AUTOMATED COUNT 69.4 % Normal 40.0-72.0 [facility] Comment on above: Performed By: #### L [id number] ####[facility] ([facility])[address] [place] [address] OVALOCYTES PRESENCE IN BLOOD BY LIGHT MICROSCOPY Slight Normal [facility] Comment on above: Performed By: #### L [id number] ####[facility] ([facility])[address] [place] [address] POIKILOCYTOSIS (PRESENCE) IN BLOOD BY LIGHT MICROSCOPY Moderate Normal [facility] Comment on above: Performed By: #### L [id number] ####[facility] ([facility])[address] [place] [address] POLYCHROMASIA IN BLOOD BY LIGHT MICROSCOPY Slight Normal [facility] Comment on above: Performed By: #### L [id number] ####[facility] ([facility])[address] [place] [address] SCHISTOCYTES (PRESENCE) IN BLOOD BY LIGHT MICROSCOPY Slight Normal [facility] Comment on above: Performed By: #### L [id number] ####[facility] ([facility])[address] [place] [address] TARGET CELLS IN BLOOD BY LIGHT MICROSCOPY Slight Normal [facility] Comment on above: Performed By: #### L [id number] ####[facility] ([facility])[address] [place] [address] 30on 10-11-2024 30 Normal [facility] 30 Normal [facility] CBC WITH AUTO DIFFERENTIALon 10-11-2024 Erythrocyte distribution width (RBC) [Ratio] 24.5 % High 11.5-15.0 [facility] Comment on above: Performed By: #### L [id number] ####[facility] ([facility])[address] [place] [address] ERYTHROCYTE MEAN CORPUSCULAR HEMOGLOBIN CONCENTRATION (G/DL) BY AUTOMATED 30.2 g/dL Low 32.0-35.0 [facility] Comment on above: Performed By: #### L [id number] ####[facility] ([facility])[address] [place] [address] Hematocrit (Bld) [Volume fraction] 34.1 % Low 39.0-55.0 [facility] Comment on above: Performed By: #### L [id number] ####[facility] ([facility])[address] [place] [address] Hemoglobin (Bld) [Mass/Vol] 10.3 g/dL Low 13.0-17.0 [facility] Comment on above: Performed By: #### L [id number] ####[facility] ([facility])[address] [place] [address] MCH (RBC) [Entitic mass] 28.4 pg Normal 27.0-33.0 [facility] Comment on above: Performed By: #### L [id number] ####[facility] ([facility])[address] [place] [address] MCV (RBC) [Entitic vol] 93.9 fL Normal 82.0-98.0 [facility] Comment on above: Performed By: #### L [id number] ####[facility] ([facility])[address] [place] [address] NRBC (PER 100 WBCS) BY AUTOMATED COUNT 0.0 % Normal 0 [facility] Comment on above: Performed By: #### L [id number] ####[facility] ([facility])[address] [place] [address] PLATELETS (10*3/UL) IN BLOOD AUTOMATED COUNT 159 10*3/uL Normal 150-400 [facility] Comment on above: Performed By: #### L [id number] ####[facility] ([facility])[address] [place] [address] RBC (Bld) [#/Vol] 3.63 10*6/uL Low 4.20-5.70 [facility] Comment on above: Performed By: #### L [id number] ####[facility] ([facility])[address] [place] [address] WBC (Bld) [#/Vol] 5.13 10*3/uL Normal 4.00-10.60 [facility] Comment on above: Performed By: #### L [id number] ####[facility] ([facility] [place] [address] COMPREHENSIVE METABOLIC PANE Aldo 10-11-2024 Albumin [Mass/Vol] 3.4 g/dL Low 3.5-5.7 [facility] Comment on above: Performed By: #### L [id number] ####[facility] ([facility])[address] [place] [address] ALP [Catalytic activity/Vol] 109 U/L High 34-104 [facility] Comment on above: Performed By: #### L [id number] ####[facility] ([facility])[address] [place] [address] ALT [Catalytic activity/Vol] 87 U/L High 7-52 [facility] Comment on above: Performed By: #### L [id number] ####[facility] ([facility])[address] [place] [address] Anion gap [Moles/Vol] 11 mmol/L Normal 7-20 [facility] Comment on above: Performed By: #### L [id number] ####[facility] ([facility])[address] [place] [address] AST [Catalytic activity/Vol] 33 U/L Normal 13-39 [facility] Comment on above: Performed By: #### L [id number] ####[facility] ([facility])[address] [place] [address] Bilirubin [Mass/Vol] 1.6 mg/dL High 0.3-1.0 [facility] Comment on above: Performed By: #### L [id number] ####[facility] ([facility])[address] [place] [address] Calcium [Mass/Vol] 8.9 mg/dL Normal 8.6-10.3 [facility] Comment on above: Performed By: #### L [id number] ####[facility] ([facility]ER)[address] [place] [address] Chloride [Moles/Vol] 102 mmol/L Normal 98-107 [facility] Comment on above: Performed By: #### L [id number] ####[facility] ([facility])[address] [place] [address] CO2 [Moles/Vol] 26 mmol/L Normal 21-31 [facility] Comment on above: Performed By: #### L [id number] ####[facility] ([facility])[address] [place] [address] Creatinine [Mass/Vol] 2.17 mg/dL High 0.70-1.30 [facility] Comment on above: Performed By: #### L [id number] ####[facility] ([facility])[address] [place] [address] GLOMERULAR FILTRATION RATE ML/MIN/1.73 SQ M.PREDICTED 29.7 mL/min/1.73m*2 Low >60.0 [facility] Comment on above: Result Comment: The [facility]???s estimated glomerular filtration rate (eGFR) will no [...] of individuals. Performed By: #### L [id number] ####[facility] ([facility])[address] [place] [address] Glucose [Mass/Vol] 90 mg/dL Normal 70-100 [facility] Comment on above: Performed By: #### L [id number] ####[facility] ([facility])[address] [place] [address] Potassium [Moles/Vol] 5.1 mmol/L Normal 3.5-5.1 [facility] Comment on above: Performed By: #### L [id number] ####[facility] ([facility])[address] [place] [address] Protein [Mass/Vol] 6.1 g/dL Normal 6.0-8.3 [facility] Comment on above: Performed By: #### L [id number] ####[facility] ([facility])[address] [place] [address] Sodium [Moles/Vol] 134 mmol/L Low 136-145 [facility] Comment on above: Performed By: #### L [id number] ####[facility] ([facility])[address] [place] [address] Urea nitrogen [Mass/Vol] 36 mg/dL High 7-25 [facility] Comment on above: Performed By: #### L [id number] ####[facility] ([facility])[address] [place] [address] UREA NITROGEN/CREATININE (MASS RATIO) IN SER/PLAS 16.6 Normal [facility] Comment on above: Performed By: #### L [id number] ####[facility] ([facility])[address] [place] [address] MANUAL DIFFERENTIALon 2024 ACANTHOCYTES PRESENCE IN BLOOD BY LIGHT MICROSCOPY Slight Normal [facility] Comment on above: Performed By: #### L [id number] ####[facility] ([facility])[address] [place] [address] ANISOCYTOSIS PRESENCE IN BLOOD BY LIGHT MICROSCOPY Moderate Normal [facility] Comment on above: Performed By: #### L [id number] ####[facility] ([facility])[address] [place] [address] BASOPHILS (10*3/UL) IN BLOOD BY CALCULATION 0.03 10*3/uL Normal 0.00-0.20 [facility] Comment on above: Performed By: #### L [id number] ####[facility] ([facility])[address] [place] [address] BASOPHILS/100 LEUKOCYTES IN BLOOD BY AUTOMATED COUNT 0.6 % Normal 0.0-1.0 [facility] Comment on above: Performed By: #### L [id number] ####[facility] ([facility])[address] [place] [address] ELLIPTOCYTES IN BLOOD BY LIGHT MICROSCOPY Slight Normal [facility] Comment on above: Performed By: #### L [id number] ####[facility] ([facility])[address] [place] [address] EOSINOPHILS (10*3/UL) IN BLOOD BY CALCULATION 0.16 10*3/uL Normal 0.00-0.50 [facility] Comment on above: Performed By: #### L [id number] ####[facility] ([facility])[address] [place] [address] EOSINOPHILS/100 LEUKOCYTES IN BLOOD BY AUTOMATED COUNT 3.1 % Normal 0.0-6.0 [facility] Comment on above: Performed By: #### L [id number] ####[facility] ([facility])[address] [place] [address] IMMATURE GRANULOCYTES (10*3/UL) IN BLOOD BY CALCULATION 0.06 10*3/uL Normal 0.00-0.20 [facility] Comment on above: Performed By: #### L [id number] ####[facility] ([facility])[address] [place] [address] IMMATURE GRANULOCYTES/100 LEUKOCYTES IN BLOOD BY AUTOMATED COUNT 1.2 % High 0.0-1.0 [facility] Comment on above: Performed By: #### L [id number] ####[facility] ([facility])[address] [place] [address] LYMPHOCYTES (10*3/UL) IN BLOOD BY CALCULATION 0.82 10*3/uL Low 1.20-4.00 [facility] Comment on above: Performed By: #### L [id number] ####[facility] ([facility])[address] [place] [address] LYMPHOCYTES/100 LEUKOCYTES IN BLOOD BY AUTOMATED COUNT 16.0 % Low 20.0-45.0 [facility] Comment on above: Performed By: #### L [id number] ####[facility] ([facility])[address] [place] [address] MONOCYTES (10*3/UL) IN BLOOD BY CALCUATION 0.60 10*3/uL Normal 0.10-1.00 [facility] Comment on above: Performed By: #### L [id number] ####[facility] ([facility])[address] [place] [address] MONOCYTES/100 LEUKOCYTES IN BLOOD BY AUTOMATED COUNT 11.7 % Normal 5.0-12.0 [facility] Comment on above: Performed By: #### L [id number] ####[facility] ([facility])[address] [place] [address] NEUTROPHILS (10*3/UL) IN BLOOD BY CALCULATION 3.5 10*3/uL Normal 1.6-7.6 [facility] Comment on above: Performed By: #### L [id number] ####[facility] ([facility])[address] [place] [address] NEUTROPHILS/100 LEUKOCYTES IN BLOOD BY AUTOMATED COUNT 67.4 % Normal 40.0-72.0 [facility] Comment on above: Performed By: #### L [id number] ####[facility] ([facility])[address] [place] [address] OVALOCYTES PRESENCE IN BLOOD BY LIGHT MICROSCOPY Slight Normal [facility] Comment on above: Performed By: #### L [id number] ####[facility] ([facility])[address] [place] [address] POIKILOCYTOSIS (PRESENCE) IN BLOOD BY LIGHT MICROSCOPY Moderate Normal [facility] Comment on above: Performed By: #### L [id number] ####[facility] ([facility])[address] [place] [address] POLYCHROMASIA IN BLOOD BY LIGHT MICROSCOPY Slight Normal [facility] Comment on above: Performed By: #### L [id number] ####[facility] ([facility])[address] [place] [address] SCHISTOCYTES (PRESENCE) IN BLOOD BY LIGHT MICROSCOPY Slight Normal [facility] Comment on above: Performed By: #### L [id number] ####[facility] ([facility])[address] [place] [address] TARGET CELLS IN BLOOD BY LIGHT MICROSCOPY Slight Normal [facility] Comment on above: Performed By: #### L [id number] ####[facility] ([facility])[address] [place] [address] POTASSIUMon 10-11-2024 Potassium [Moles/Vol] 4.5 mmol/L Normal 3.5-5.1 [facility] Comment on above: Performed By: #### L [id number] ####[facility] ([facility]AKER)[address] [place] [address] 30on 10-10-2024 30 Normal [facility] 30 Normal [facility] 30 Normal [facility] BASIC METABOLIC PANELon 09-17 Anion gap [Moles/Vol] 10 mmol/L Normal 7-20 [facility] Comment on above: Performed By: #### L [id number] ####[facility] [place] [address] Calcium [Mass/Vol] 9.1 mg/dL Normal 8.6-10.3 [facility] Comment on above: Performed By: #### L [id number] ####[facility] ([facility])[address] [place] [address] Chloride [Moles/Vol] 102 mmol/L Normal 98-107 [facility] Comment on above: Performed By: #### L [id number] ####[facility] ([facility] [place] [address] CO2 [Moles/Vol] 28 mmol/L Normal 21-31 [facility] Comment on above: Performed By: #### L [id number] ####[facility] ([facility])[address] [place] [address] Creatinine [Mass/Vol] 1.98 mg/dL High 0.70-1.30 [facility] Comment on above: Performed By: #### L [id number] ####[facility] ([facility] [place] [address] GLOMERULAR FILTRATION RATE ML/MIN/1.73 SQ M.PREDICTED 33.1 mL/min/1.73m*2 Low >60.0 [facility] Comment on above: Result Comment: The [facility]???s estimated glomerular filtration rate (eGFR) will no [...] of individuals. Performed By: #### L [id number] ####[facility] ([facility])[address] [place] [address] Glucose [Mass/Vol] 92 mg/dL Normal 70-100 [facility] Comment on above: Performed By: #### L [id number] ####[facility] ([facility])[address] [place] [address] Potassium [Moles/Vol] 4.5 mmol/L Normal 3.5-5.1 [facility] Comment on above: Performed By: #### L [id number] ####[facility] ([facility])[address] [place] [address] Sodium [Moles/Vol] 135 mmol/L Low 136-145 [facility] Comment on above: Performed By: #### L [id number] ####[facility] ([facility])[address] [place] [address] Urea nitrogen [Mass/Vol] 35 mg/dL High 7-25 [facility] Comment on above: Performed By: #### L [id number] ####[facility] ([facility])[address] [place] [address] UREA NITROGEN/CREATININE (MASS RATIO) IN SER/PLAS 17.7 Normal [facility] Comment on above: Performed By: #### L [id number] ####[facility] ([facility])[address] [place] [address] CBC WITH AUTO DIFFERENTIALon 10-10-2024 Erythrocyte distribution width (RBC) [Ratio] 24.3 % High 11.5-15.0 [facility] Comment on above: Performed By: #### L [id number] ####[facility] ([facility])[address] [place] [address] ERYTHROCYTE MEAN CORPUSCULAR HEMOGLOBIN CONCENTRATION (G/DL) BY AUTOMATED 31.0 g/dL Low 32.0-35.0 [facility] Comment on above: Performed By: #### L [id number] ####[facility] ([facility])[address] [place] [address] Hematocrit (Bld) [Volume fraction] 32.3 % Low 39.0-55.0 [facility] Comment on above: Performed By: #### L [id number] ####[facility] ([facility])[address] [place] [address] Hemoglobin (Bld) [Mass/Vol] 10.0 g/dL Low 13.0-17.0 [facility] Comment on above: Performed By: #### L [id number] ####[facility] ([facility])[address] [place] [address] MCH (RBC) [Entitic mass] 28.1 pg Normal 27.0-33.0 [facility] Comment on above: Performed By: #### L [id number] ####[facility] ([facility])[address] [place] [address] MCV (RBC) [Entitic vol] 90.7 fL Normal 82.0-98.0 [facility] Comment on above: Performed By: #### L [id number] ####[facility] ([facility])[address] [place] [address] NRBC (PER 100 WBCS) BY AUTOMATED COUNT 0.0 % Normal 0 [facility] Comment on above: Performed By: #### L [id number] ####[facility] ([facility])[address] [place] [address] PLATELETS (10*3/UL) IN BLOOD AUTOMATED COUNT 134 10*3/uL Low 150-400 [facility] Comment on above: Performed By: #### L [id number] ####[facility] ([facility])[address] [place] [address] RBC (Bld) [#/Vol] 3.56 10*6/uL Low 4.20-5.70 [facility] Comment on above: Performed By: #### L [id number] ####[facility] ([facility])[address] [place] [address] WBC (Bld) [#/Vol] 5.50 10*3/uL Normal 4.00-10.60 [facility] Comment on above: Performed By: #### L [id number] ####[facility] ([facility])[address] [place] [address] HEPATIC FUNCTION PANELon Albumin [Mass/Vol] 3.4 g/dL Low 3.5-5.7 [facility] Comment on above: Performed By: #### L [id number] ####[facility] ([facility])[address] [place] [address] ALP [Catalytic activity/Vol] 109 U/L High 34-104 [facility] Comment on above: Performed By: #### L [id number] ####[facility] ([facility])[address] [place] [address] ALT [Catalytic activity/Vol] 106 U/L High 7-52 [facility] Comment on above: Performed By: #### L [id number] ####[facility] ([facility])[address] [place] [address] AST [Catalytic activity/Vol] 32 U/L Normal 13-39 [facility] Comment on above: Performed By: #### L [id number] ####[facility] ([facility])[address] [place] [address] Bilirubin [Mass/Vol] 1.7 mg/dL High 0.3-1.0 [facility] Comment on above: Performed By: #### L [id number] ####[facility] ([facility])[address] [place] [address] Magnesium [Mass/Vol] 0.6 mg/dL High 0-0.2 [facility] Comment on above: Performed By: #### L [id number] ####[facility] ([facility])[address] [place] [address] Protein [Mass/Vol] 6.0 g/dL Normal 6.0-8.3 [facility] Comment on above: Performed By: #### L [id number] ####[facility] ([facility])[address] [place] [address] MANUAL DIFFERENTIALon 2024 ACANTHOCYTES PRESENCE IN BLOOD BY LIGHT MICROSCOPY Slight Normal [facility] Comment on above: Performed By: #### L [id number] ####[facility] ([facility])[address] [place] [address] ANISOCYTOSIS PRESENCE IN BLOOD BY LIGHT MICROSCOPY Moderate Normal [facility] Comment on above: Performed By: #### L [id number] ####[facility] ([facility])[address] [place] [address] BASOPHILS (10*3/UL) IN BLOOD BY CALCULATION 0.04 10*3/uL Normal 0.00-0.20 [facility] Comment on above: Performed By: #### L [id number] ####[facility] ([facility])[address] [place] [address] BASOPHILS/100 LEUKOCYTES IN BLOOD BY AUTOMATED COUNT 0.7 % Normal 0.0-1.0 [facility] Comment on above: Performed By: #### L [id number] ####[facility] ([facility])[address] [place] [address] ELLIPTOCYTES IN BLOOD BY LIGHT MICROSCOPY Slight Normal [facility] Comment on above: Performed By: #### L [id number] ####[facility] ([facility])[address] [place] [address] EOSINOPHILS (10*3/UL) IN BLOOD BY CALCULATION 0.15 10*3/uL Normal 0.00-0.50 [facility] Comment on above: Performed By: #### L [id number] ####[facility] ([facility])[address] [place] [address] EOSINOPHILS/100 LEUKOCYTES IN BLOOD BY AUTOMATED COUNT 2.7 % Normal 0.0-6.0 [facility] Comment on above: Performed By: #### L [id number] ####[facility] ([facility])[address] [place] [address] HYPOCHROMIA (PRESENCE) IN BLOOD BY LIGHT MICROSCOPY Slight Normal [facility] Comment on above: Performed By: #### L [id number] ####[facility] ([facility] [place] [address] IMMATURE GRANULOCYTES (10*3/UL) IN BLOOD BY CALCULATION 0.03 10*3/uL Normal 0.00-0.20 [facility] Comment on above: Performed By: #### L [id number] ####[facility] ([facility])[address] [place] [address] IMMATURE GRANULOCYTES/100 LEUKOCYTES IN BLOOD BY AUTOMATED COUNT 0.5 % Normal 0.0-1.0 [facility] Comment on above: Performed By: #### L [id number] ####[facility] ([facility])[address] [place] [address] LYMPHOCYTES (10*3/UL) IN BLOOD BY CALCULATION 0.76 10*3/uL Low 1.20-4.00 [facility] Comment on above: Performed By: #### L [id number] ####[facility] ([facility])[address] [place] [address] LYMPHOCYTES/100 LEUKOCYTES IN BLOOD BY AUTOMATED COUNT 13.8 % Low 20.0-45.0 [facility] Comment on above: Performed By: #### L [id number] ####[facility] ([facility])[address] [place] [address] MONOCYTES (10*3/UL) IN BLOOD BY CALCUATION 0.57 10*3/uL Normal 0.10-1.00 [facility] Comment on above: Performed By: #### L [id number] ####[facility] ([facility])[address] [place] [address] MONOCYTES/100 LEUKOCYTES IN BLOOD BY AUTOMATED COUNT 10.4 % Normal 5.0-12.0 [facility] Comment on above: Performed By: #### L [id number] ####[facility] ([facility])[address] [place] [address] NEUTROPHILS (10*3/UL) IN BLOOD BY CALCULATION 4.0 10*3/uL Normal 1.6-7.6 [facility] Comment on above: Performed By: #### L [id number] ####[facility] ([facility])[address] [place] [address] NEUTROPHILS/100 LEUKOCYTES IN BLOOD BY AUTOMATED COUNT 71.9 % Normal 40.0-72.0 [facility] Comment on above: Performed By: #### L [id number] ####[facility] ([facility])[address] [place] [address] OVALOCYTES PRESENCE IN BLOOD BY LIGHT MICROSCOPY Slight Normal [facility] Comment on above: Performed By: #### L [id number] ####[facility] ([facility])[address] [place] [address] POIKILOCYTOSIS (PRESENCE) IN BLOOD BY LIGHT MICROSCOPY Moderate Normal [facility] Comment on above: Performed By: #### L [id number] ####[facility] ([facility])[address] [place] [address] POLYCHROMASIA IN BLOOD BY LIGHT MICROSCOPY Slight Normal [facility] Comment on above: Performed By: #### L [id number] ####[facility] ([facility])[address] [place] [address] SCHISTOCYTES (PRESENCE) IN BLOOD BY LIGHT MICROSCOPY Slight Normal [facility] Comment on above: Performed By: #### L [id number] ####[facility] ([facility])[address] [place] [address] TARGET CELLS IN BLOOD BY LIGHT MICROSCOPY Slight Normal [facility] Comment on above: Performed By: #### L [id number] ####[facility] ([facility])[address] [place] [address] 30on 10-09-2024 30 Normal [facility] 30 Normal [facility] 30 Normal [facility] CBC WITH AUTO DIFFERENTIALon 10-09-2024 Erythrocyte distribution width (RBC) [Ratio] 24.5 % High 11.5-15.0 [facility] Comment on above: Performed By: #### L [id number] ####[facility] ([facility])[address] [place] [address] ERYTHROCYTE MEAN CORPUSCULAR HEMOGLOBIN CONCENTRATION (G/DL) BY AUTOMATED 30.5 g/dL Low 32.0-35.0 [facility] Comment on above: Performed By: #### L [id number] ####[facility] ([facility])[address] [place] [address] Hematocrit (Bld) [Volume fraction] 34.7 % Low 39.0-55.0 [facility] Comment on above: Performed By: #### L [id number] ####[facility] ([facility])[address] [place] [address] Hemoglobin (Bld) [Mass/Vol] 10.6 g/dL Low 13.0-17.0 [facility] Comment on above: Performed By: #### L [id number] ####[facility] ([facility])[address] [place] [address] MCH (RBC) [Entitic mass] 28.1 pg Normal 27.0-33.0 [facility] Comment on above: Performed By: #### L [id number] ####[facility] ([facility])[address] [place] [address] MCV (RBC) [Entitic vol] 92.0 fL Normal 82.0-98.0 [facility] Comment on above: Performed By: #### L [id number] ####[facility] ([facility])[address] [place] [address] NRBC (PER 100 WBCS) BY AUTOMATED COUNT 0.0 % Normal 0 [facility] Comment on above: Performed By: #### L [id number] ####[facility] ([facility])[address] [place] [address] PLATELETS (10*3/UL) IN BLOOD AUTOMATED COUNT 117 10*3/uL Low 150-400 [facility] Comment on above: Performed By: #### L [id number] ####[facility] ([facility])[address] [place] [address] RBC (Bld) [#/Vol] 3.77 10*6/uL Low 4.20-5.70 [facility] Comment on above: Performed By: #### L [id number] ####[facility] ([facility])[address] [place] [address] WBC (Bld) [#/Vol] 4.93 10*3/uL Normal 4.00-10.60 [facility] Comment on above: Performed By: #### L [id number] ####[facility] ([facility])[address] [place] [address] MANUAL DIFFERENTIALon 2024 ANISOCYTOSIS PRESENCE IN BLOOD BY LIGHT MICROSCOPY Moderate Normal [facility] Comment on above: Performed By: #### L [id number] ####[facility] ([facility])[address] [place] [address] BASOPHILS (10*3/UL) IN BLOOD BY CALCULATION 0.03 10*3/uL Normal 0.00-0.20 [facility] Comment on above: Performed By: #### L [id number] ####[facility] ([facility])[address] [place] [address] BASOPHILS/100 LEUKOCYTES IN BLOOD BY AUTOMATED COUNT 0.6 % Normal 0.0-1.0 [facility] Comment on above: Performed By: #### L [id number] ####[facility] ([facility])[address] [place] [address] ELLIPTOCYTES IN BLOOD BY LIGHT MICROSCOPY Slight Normal [facility] Comment on above: Performed By: #### L [id number] ####[facility] ([facility])[address] [place] [address] EOSINOPHILS (10*3/UL) IN BLOOD BY CALCULATION 0.15 10*3/uL Normal 0.00-0.50 [facility] Comment on above: Performed By: #### L [id number] ####[facility] ([facility])[address] [place] [address] EOSINOPHILS/100 LEUKOCYTES IN BLOOD BY AUTOMATED COUNT 3.0 % Normal 0.0-6.0 [facility] Comment on above: Performed By: #### L [id number] ####[facility] ([facility] [place] [address] HYPOCHROMIA (PRESENCE) IN BLOOD BY LIGHT MICROSCOPY Slight Normal [facility] Comment on above: Performed By: #### L [id number] ####[facility] ([facility])[address] [place] [address] IMMATURE GRANULOCYTES (10*3/UL) IN BLOOD BY CALCULATION 0.05 10*3/uL Normal 0.00-0.20 [facility] Comment on above: Performed By: #### L [id number] ####[facility] ([facility])[address] [place] [address] IMMATURE GRANULOCYTES/100 LEUKOCYTES IN BLOOD BY AUTOMATED COUNT 1.0 % Normal 0.0-1.0 [facility] Comment on above: Performed By: #### L [id number] ####[facility] ([facility])[address] [place] [address] LYMPHOCYTES (10*3/UL) IN BLOOD BY CALCULATION 0.83 10*3/uL Low 1.20-4.00 [facility] Comment on above: Performed By: #### L [id number] ####[facility] ([facility])[address] [place] [address] LYMPHOCYTES/100 LEUKOCYTES IN BLOOD BY AUTOMATED COUNT 16.8 % Low 20.0-45.0 [facility] Comment on above: Performed By: #### L [id number] ####[facility] ([facility])[address] [place] [address] MONOCYTES (10*3/UL) IN BLOOD BY CALCUATION 0.48 10*3/uL Normal 0.10-1.00 [facility] Comment on above: Performed By: #### L [id number] ####[facility] ([facility])[address] [place] [address] MONOCYTES/100 LEUKOCYTES IN BLOOD BY AUTOMATED COUNT 9.7 % Normal 5.0-12.0 [facility] Comment on above: Performed By: #### L [id number] ####[facility] ([facility])[address] [place] [address] NEUTROPHILS (10*3/UL) IN BLOOD BY CALCULATION 3.4 10*3/uL Normal 1.6-7.6 [facility] Comment on above: Performed By: #### L [id number] ####[facility] ([facility])[address] [place] [address] NEUTROPHILS/100 LEUKOCYTES IN BLOOD BY AUTOMATED COUNT 68.9 % Normal 40.0-72.0 [facility] Comment on above: Performed By: #### L [id number] ####[facility] ([facility])[address] [place] [address] OVALOCYTES PRESENCE IN BLOOD BY LIGHT MICROSCOPY Slight Normal [facility] Comment on above: Performed By: #### L [id number] ####[facility] ([facility])[address] [place] [address] POIKILOCYTOSIS (PRESENCE) IN BLOOD BY LIGHT MICROSCOPY Moderate Normal [facility] Comment on above: Performed By: #### L [id number] ####[facility] ([facility])[address] [place] [address] POLYCHROMASIA IN BLOOD BY LIGHT MICROSCOPY Slight Normal [facility] Comment on above: Performed By: #### L [id number] ####[facility] ([facility])[address] [place] [address] SCHISTOCYTES (PRESENCE) IN BLOOD BY LIGHT MICROSCOPY Slight Normal [facility] Comment on above: Performed By: #### L [id number] ####[facility] ([facility])[address] [place] [address] TARGET CELLS IN BLOOD BY LIGHT MICROSCOPY Slight Normal [facility] Comment on above: Performed By: #### L [id number] ####[facility] ([facility])[address] [place] [address] NURSNOTEon 10-09-2024 NURSNOTE Patient and daughter s have agreed to restart the Mexiletine at this time. This RN notified Cardiology. Normal [facility] 30on 10-08-2024 30 Normal [facility] 30 Normal [facility] 30 Normal [facility] 30 Normal [facility] ANTI-XA (HEPARIN LEVEL)on HEPARIN UNFRACTIONATED (U/ML) IN PPP BY CHROMOGENIC METHOD 0.40 IU/mL Normal 0.3-0.7 [facility] Comment on above: Result Comment: [place] roxaban and Apixaban will interfere with the anti Xa assay used to monitor UFH and LMWH. Performed By: #### L [id number] ####[facility] ([facility])[address] [place] [address] CBC WITH AUTO DIFFERENTIALon 10-08-2024 Erythrocyte distribution width (RBC) [Ratio] 24.0 % High 11.5-15.0 [facility] Comment on above: Performed By: #### L [id number] ####[facility] ([facility])[address] [place] [address] ERYTHROCYTE MEAN CORPUSCULAR HEMOGLOBIN CONCENTRATION (G/DL) BY AUTOMATED 30.4 g/dL Low 32.0-35.0 [facility] Comment on above: Performed By: #### L [id number] ####[facility] ([facility])[address] [place] [address] Hematocrit (Bld) [Volume fraction] 34.5 % Low 39.0-55.0 [facility] Comment on above: Performed By: #### L [id number] ####[facility] ([facility])[address] [place] [address] Hemoglobin (Bld) [Mass/Vol] 10.5 g/dL Low 13.0-17.0 [facility] Comment on above: Performed By: #### L [id number] ####[facility] ([facility])[address] [place] [address] IMMATURE PLATELET FRACTION % 3.0 % Normal 0.8-6.3 [facility] Comment on above: Performed By: #### L [id number] ####[facility] ([facility])[address] [place] [address] MCH (RBC) [Entitic mass] 28.5 pg Normal 27.0-33.0 [facility] Comment on above: Performed By: #### L [id number] ####[facility] ([facility])[address] [place] [address] MCV (RBC) [Entitic vol] 93.5 fL Normal 82.0-98.0 [facility] Comment on above: Performed By: #### L [id number] ####[facility] ([facility])[address] [place] [address] NRBC (PER 100 WBCS) BY AUTOMATED COUNT 0.0 % Normal 0 [facility] Comment on above: Performed By: #### L [id number] ####[facility] ([facility])[address] [place] [address] PLATELETS (10*3/UL) IN BLOOD AUTOMATED COUNT 104 10*3/uL Low 150-400 [facility] Comment on above: Performed By: #### L [id number] ####[facility] ([facility])[address] [place] [address] RBC (Bld) [#/Vol] 3.69 10*6/uL Low 4.20-5.70 [facility] Comment on above: Performed By: #### L [id number] ####[facility] ([facility])[address] [place] [address] WBC (Bld) [#/Vol] 5.84 10*3/uL Normal 4.00-10.60 [facility] Comment on above: Performed By: #### L [id number] ####[facility] ([facility] [place] [address] CNPNon 10-08-2024 CNPN Normal [facility] METABOLIC [place] 10-08-2024 Albumin [Mass/Vol] 3.6 g/dL Normal 3.5-5.7 [facility] Comment on above: Performed By: #### L [id number] ####[facility] ([facility])[address] [place] [address] ALP [Catalytic activity/Vol] 110 U/L High 34-104 [facility] Comment on above: Performed By: #### L [id number] ####[facility] ([facility])[address] [place] [address] ALT [Catalytic activity/Vol] 161 U/L High 7-52 [facility] Comment on above: Performed By: #### L [id number] ####[facility] ([facility])[address] [place] [address] Anion gap [Moles/Vol] 11 mmol/L Normal 7-20 [facility] Comment on above: Performed By: #### L [id number] ####[facility] ([facility])[address] [place] [address] AST [Catalytic activity/Vol] 47 U/L High 13-39 [facility] Comment on above: Performed By: #### L [id number] ####[facility] ([facility])[address] [place] [address] Bilirubin [Mass/Vol] 1.7 mg/dL High 0.3-1.0 [facility] Comment on above: Performed By: #### L [id number] ####[facility] ([facility])[address] [place] [address] Calcium [Mass/Vol] 9.0 mg/dL Normal 8.6-10.3 [facility] Comment on above: Performed By: #### L [id number] ####[facility] ([facility])[address] [place] [address] Chloride [Moles/Vol] 100 mmol/L Normal 98-107 [facility] Comment on above: Performed By: #### L [id number] ####[facility] ([facility])[address] [place] [address] CO2 [Moles/Vol] 28 mmol/L Normal 21-31 [facility] Comment on above: Performed By: #### L [id number] ####[facility] ([facility])[address] [place] [address] Creatinine [Mass/Vol] 1.82 mg/dL High 0.70-1.30 [facility] Comment on above: Performed By: #### L [id number] ####[facility] ([facility])[address] [place] [address] GLOMERULAR FILTRATION RATE ML/MIN/1.73 SQ M.PREDICTED 36.6 mL/min/1.73m*2 Low >60.0 [facility] Comment on above: Result Comment: [facility]???s estimated glomerular filtration rate (eGFR) will no [...] of individuals. Performed By: #### L [id number] ####[facility] ([facility])[address] [place] [address] Glucose [Mass/Vol] 83 mg/dL Normal 70-100 [facility] Comment on above: Performed By: #### L [id number] ####[facility] ([facility])[address] [place] [address] Potassium [Moles/Vol] 4.6 mmol/L Normal 3.5-5.1 [facility] Comment on above: Performed By: #### L [id number] ####[facility] ([facility])[address] [place] [address] Protein [Mass/Vol] 6.1 g/dL Normal 6.0-8.3 [facility] Comment on above: Performed By: #### L [id number] ####[facility] ([facility])[address] [place] [address] Sodium [Moles/Vol] 134 mmol/L Low 136-145 [facility] Comment on above: Performed By: #### L [id number] ####[facility] ([facility])[address] [place] [address] Urea nitrogen [Mass/Vol] 38 mg/dL High 7-25 [facility] Comment on above: Performed By: #### L [id number] ####[facility] ([facility])[address] [place] [address] UREA NITROGEN/CREATININE (MASS RATIO) IN SER/PLAS 20.9 Normal [facility] Comment on above: Performed By: #### L [id number] ####[facility] ([facility])[address] [place] [address] MANUAL DIFFERENTIALon 2024 ACANTHOCYTES PRESENCE IN BLOOD BY LIGHT MICROSCOPY Moderate Normal [facility] Comment on above: Performed By: #### L [id number] ####[facility] ([facility])[address] [place] [address] ANISOCYTOSIS PRESENCE IN BLOOD BY LIGHT MICROSCOPY Moderate Normal [facility] Comment on above: Performed By: #### L [id number] ####[facility] ([facility])[address] [place] [address] BASOPHILS (10*3/UL) IN BLOOD BY CALCULATION 0.02 10*3/uL Normal 0.00-0.20 [facility] Comment on above: Performed By: #### L [id number] ####[facility] ([facility])[address] [place] [address] BASOPHILS/100 LEUKOCYTES IN BLOOD BY AUTOMATED COUNT 0.3 % Normal 0.0-1.0 [facility] Comment on above: Performed By: #### L [id number] ####[facility] ([facility])[address] [place] [address] HAMZAH CELLS PRESENCE IN BLOOD BY LIGHT MICROSCOPY Slight Normal [facility] Comment on above: Performed By: #### L [id number] ####[facility] ([facility] [place] [address] ELLIPTOCYTES IN BLOOD BY LIGHT MICROSCOPY Slight Normal [facility] Comment on above: Performed By: #### L [id number] ####[facility] ([facility])[address] [place] [address] EOSINOPHILS (10*3/UL) IN BLOOD BY CALCULATION 0.16 10*3/uL Normal 0.00-0.50 [facility] Comment on above: Performed By: #### L [id number] ####[facility] ([facility])[address] [place] [address] EOSINOPHILS/100 LEUKOCYTES IN BLOOD BY AUTOMATED COUNT 2.7 % Normal 0.0-6.0 [facility] Comment on above: Performed By: #### L [id number] ####[facility] ([facility])[address] [place] [address] HYPOCHROMIA (PRESENCE) IN BLOOD BY LIGHT MICROSCOPY Slight Normal [facility] Comment on above: Performed By: #### L [id number] ####[facility] ([facility])[address] [place] [address] IMMATURE GRANULOCYTES (10*3/UL) IN BLOOD BY CALCULATION 0.05 10*3/uL Normal 0.00-0.20 [facility] Comment on above: Performed By: #### L [id number] ####[facility] ([facility])[address] [place] [address] IMMATURE GRANULOCYTES/100 LEUKOCYTES IN BLOOD BY AUTOMATED COUNT 0.9 % Normal 0.0-1.0 [facility] Comment on above: Performed By: #### L [id number] ####[facility] ([facility])[address] [place] [address] LYMPHOCYTES (10*3/UL) IN BLOOD BY CALCULATION 1.00 10*3/uL Low 1.20-4.00 [facility] Comment on above: Performed By: #### L [id number] ####[facility] ([facility])[address] [place] [address] LYMPHOCYTES/100 LEUKOCYTES IN BLOOD BY AUTOMATED COUNT 17.1 % Low 20.0-45.0 [facility] Comment on above: Performed By: #### L [id number] ####[facility] ([facility])[address] [place] [address] MONOCYTES (10*3/UL) IN BLOOD BY CALCUATION 0.58 10*3/uL Normal 0.10-1.00 [facility] Comment on above: Performed By: #### L [id number] ####[facility] ([facility])[address] [place] [address] MONOCYTES/100 LEUKOCYTES IN BLOOD BY AUTOMATED COUNT 9.9 % Normal 5.0-12.0 [facility] Comment on above: Performed By: #### L [id number] ####[facility] ([facility])[address] [place] [address] NEUTROPHILS (10*3/UL) IN BLOOD BY CALCULATION 4.0 10*3/uL Normal 1.6-7.6 [facility] Comment on above: Performed By: #### L [id number] ####[facility] ([facility])[address] [place] [address] NEUTROPHILS/100 LEUKOCYTES IN BLOOD BY AUTOMATED COUNT 69.1 % Normal 40.0-72.0 [facility] Comment on above: Performed By: #### L [id number] ####[facility] ([facility])[address] [place] [address] OVALOCYTES PRESENCE IN BLOOD BY LIGHT MICROSCOPY Slight Normal [facility] Comment on above: Performed By: #### L [id number] ####[facility] ([facility])[address] [place] [address] POIKILOCYTOSIS (PRESENCE) IN BLOOD BY LIGHT MICROSCOPY Moderate Normal [facility] Comment on above: Performed By: #### L [id number] ####[facility] ([facility])[address] [place] [address] POLYCHROMASIA IN BLOOD BY LIGHT MICROSCOPY Slight Normal [facility] Comment on above: Performed By: #### L [id number] ####[facility] ([facility])[address] [place] [address] SCHISTOCYTES (PRESENCE) IN BLOOD BY LIGHT MICROSCOPY Slight Normal [facility] Comment on above: Performed By: #### L [id number] ####[facility] ([facility])[address] [place] [address] TARGET CELLS IN BLOOD BY LIGHT MICROSCOPY Slight Normal [facility] Comment on above: Performed By: #### L [id number] ####[facility] ([facility])[address] [place] [address] 30on 10-07-2024 30 Normal [facility] 30 Normal [facility] ANTI-XA (HEPARIN LEVEL)on HEPARIN UNFRACTIONATED (U/ML) IN PPP BY CHROMOGENIC METHOD 0.41 IU/mL Normal 0.3-0.7 [facility] Comment on above: Result Comment: [place] roxaban and Apixaban will interfere with the anti Xa assay used to monitor UFH and LMWH. Performed By: #### L [id number] ####[facility] ([facility])[address] [place] [address] CBC WITH AUTO DIFFERENTIALon 10-07-2024 Erythrocyte distribution width (RBC) [Ratio] 23.9 % High 11.5-15.0 [facility] Comment on above: Performed By: #### L [id number] ####[facility] ([facility])[address] [place] [address] ERYTHROCYTE MEAN CORPUSCULAR HEMOGLOBIN CONCENTRATION (G/DL) BY AUTOMATED 31.0 g/dL Low 32.0-35.0 [facility] Comment on above: Performed By: #### L [id number] ####[facility] ([facility])[address] [facility] [address] Hematocrit (Bld) [Volume fraction] 32.9 % Low 39.0-55.0 [facility] Comment on above: Performed By: #### L [id number] ####[facility] ([facility])[address] [place] [address] Hemoglobin (Bld) [Mass/Vol] 10.2 g/dL Low 13.0-17.0 [facility] Comment on above: Performed By: #### L [id number] ####[facility] ([facility])[address] [place] [address] IMMATURE PLATELET FRACTION % 2.8 % Normal 0.8-6.3 [facility] Comment on above: Performed By: #### L [id number] ####[facility] ([facility])[address] [place] [address] MCH (RBC) [Entitic mass] 27.8 pg Normal 27.0-33.0 [facility] Comment on above: Performed By: #### L [id number] ####[facility] ([facility])[address] [place] [address] MCV (RBC) [Entitic vol] 89.6 fL Normal 82.0-98.0 [facility] Comment on above: Performed By: #### L [id number] ####[facility] ([facility])[address] [place] [address] NRBC (PER 100 WBCS) BY AUTOMATED COUNT 0.0 % Normal 0 [facility] Comment on above: Performed By: #### L [id number] ####[facility] ([facility])[address] [place] [address] PLATELETS (10*3/UL) IN BLOOD AUTOMATED COUNT 102 10*3/uL Low 150-400 [facility] Comment on above: Performed By: #### L [id number] ####[facility] ([facility])[address] [place] [address] RBC (Bld) [#/Vol] 3.67 10*6/uL Low 4.20-5.70 [facility] Comment on above: Performed By: #### L [id number] ####[facility] ([facility])[address] [place] [address] WBC (Bld) [#/Vol] 6.01 10*3/uL Normal 4.00-10.60 [facility] Comment on above: Performed By: #### L [id number] ####[facility] [place] [address] CNPNon 10-07-2024 CNPN Normal [facility] METABOLIC PANE [place] 10-07-2024 Albumin [Mass/Vol] 3.7 g/dL Normal 3.5-5.7 [facility] Comment on above: Performed By: #### L [id number] ####[facility] ([facility] [place] [address] ALP [Catalytic activity/Vol] 122 U/L High 34-104 [facility] Comment on above: Performed By: #### L [id number] ####[facility] ([facility] [place] [address] ALT [Catalytic activity/Vol] 192 U/L High 7-52 [facility] Comment on above: Performed By: #### L [id number] ####[facility] ([facility])[address] [place] [address] Anion gap [Moles/Vol] 12 mmol/L Normal 7-20 [facility] Comment on above: Performed By: #### L [id number] ####[facility] ([facility])[address] [place] [address] AST [Catalytic activity/Vol] 57 U/L High 13-39 [facility] Comment on above: Performed By: #### L [id number] ####[facility] ([facility])[address] [place] [address] Bilirubin [Mass/Vol] 1.8 mg/dL High 0.3-1.0 [facility] Comment on above: Performed By: #### L [id number] ####[facility] ([facility])[address] [place] [address] Calcium [Mass/Vol] 9.1 mg/dL Normal 8.6-10.3 [facility] Comment on above: Performed By: #### L [id number] ####[facility] ([facility])[address] [place] [address] Chloride [Moles/Vol] 98 mmol/L Normal 98-107 [facility] Comment on above: Performed By: #### L [id number] ####[facility] ([facility])[address] [place] [address] CO2 [Moles/Vol] 28 mmol/L Normal 21-31 [facility] Comment on above: Performed By: #### L [id number] ####[facility] ([facility])[address] [place] [address] Creatinine [Mass/Vol] 1.89 mg/dL High 0.70-1.30 [facility] Comment on above: Performed By: #### L [id number] ####[facility] ([facility])[address] [place] [address] GLOMERULAR FILTRATION RATE ML/MIN/1.73 SQ M.PREDICTED 35.0 mL/min/1.73m*2 Low >60.0 [facility] Comment on above: Result Comment: [facility]???s estimated glomerular filtration rate (eGFR) will no [...] of individuals. Performed By: #### L [id number] ####[facility] ([facility])[address] [place] [address] Glucose [Mass/Vol] 128 mg/dL High 70-100 [facility] Comment on above: Performed By: #### L [id number] ####[facility] ([facility])[address] [place] [address] Potassium [Moles/Vol] 4.6 mmol/L Normal 3.5-5.1 [facility] Comment on above: Performed By: #### L [id number] ####[facility] ([facility])[address] [place] [address] Protein [Mass/Vol] 6.3 g/dL Normal 6.0-8.3 [facility] Comment on above: Performed By: #### L [id number] ####[facility] ([facility])[address] [place] [address] Sodium [Moles/Vol] 133 mmol/L Low 136-145 [facility] Comment on above: Performed By: #### L [id number] ####[facility] ([facility])[address] [place] [address] Urea nitrogen [Mass/Vol] 38 mg/dL High 7-25 [facility] Comment on above: Performed By: #### L [id number] ####[facility] ([facility])[address] [place] [address] UREA NITROGEN/CREATININE (MASS RATIO) IN SER/PLAS 20.1 Normal [facility] Comment on above: Performed By: #### L [id number] ####[facility] ([facility])[address] [place] [address] Albumin [Mass/Vol] 3.5 g/dL Normal 3.5-5.7 [facility] Comment on above: Performed By: #### L [id number] ####[facility] ([facility])[address] [place] [address] ALP [Catalytic activity/Vol] 107 U/L High 34-104 [facility] Comment on above: Performed By: #### L [id number] ####[facility] ([facility])[address] [place] [address] ALT [Catalytic activity/Vol] 196 U/L High 7-52 [facility] Comment on above: Performed By: #### L [id number] ####[facility] ([facility])[address] [place] [address] Anion gap [Moles/Vol] 11 mmol/L Normal 7-20 [facility] Comment on above: Performed By: #### L [id number] ####[facility] ([facility])[address] [place] [address] AST [Catalytic activity/Vol] 57 U/L High 13-39 [facility] Comment on above: Performed By: #### L [id number] ####[facility] ([facility])[address] [place] [address] Bilirubin [Mass/Vol] 1.8 mg/dL High 0.3-1.0 [facility] Comment on above: Performed By: #### L [id number] ####[facility] ([facility])[address] [place] [address] Calcium [Mass/Vol] 8.6 mg/dL Normal 8.6-10.3 [facility] Comment on above: Performed By: #### L [id number] ####[facility] ([facility])[address] [place] [address] Chloride [Moles/Vol] 100 mmol/L Normal 98-107 [facility] Comment on above: Performed By: #### L [id number] ####[facility] ([facility])[address] [place] [address] CO2 [Moles/Vol] 28 mmol/L Normal 21-31 [facility] Comment on above: Performed By: #### L [id number] ####[facility] ([facility])[address] [place] [address] Creatinine [Mass/Vol] 1.86 mg/dL High 0.70-1.30 [facility] Comment on above: Performed By: #### L [id number] ####[facility] ([facility])[address] [place] [address] GLOMERULAR FILTRATION RATE ML/MIN/1.73 SQ M.PREDICTED 35.7 mL/min/1.73m*2 Low >60.0 [facility] Comment on above: Result Comment: [facility]???s estimated glomerular filtration rate (eGFR) will no [...] of individuals. Performed By: #### L [id number] ####[facility] ([facility])[address] [place] [address] Glucose [Mass/Vol] 80 mg/dL Normal 70-100 [facility] Comment on above: Performed By: #### L [id number] ####[facility] ([facility])[address] [place] [address] Potassium [Moles/Vol] 4.4 mmol/L Normal 3.5-5.1 [facility] Comment on above: Performed By: #### L [id number] ####[facility] ([facility])[address] [place] [address] Protein [Mass/Vol] 5.9 g/dL Low 6.0-8.3 [facility] Comment on above: Performed By: #### L [id number] ####[facility] ([facility])[address] [place] [address] Sodium [Moles/Vol] 135 mmol/L Low 136-145 [facility] Comment on above: Performed By: #### L [id number] ####[facility] ([facility])[address] [place] [address] Urea nitrogen [Mass/Vol] 39 mg/dL High 7-25 [facility] Comment on above: Performed By: #### L [id number] ####[facility] ([facility])[address] [place] [address] UREA NITROGEN/CREATININE (MASS RATIO) IN SER/PLAS 21.0 Normal [facility] Comment on above: Performed By: #### L [id number] ####[facility] ([facility])[address] [place] [address] MAGNESIUMon 10-07-2024 Magnesium [Mass/Vol] 1.9 mg/dL Normal 1.9-2.7 [facility] Comment on above: Performed By: #### L [id number] ####[facility] ([facility])[address] [facility] [place] [address] MANUAL DIFFERENTIALon 2024 ACANTHOCYTES PRESENCE IN BLOOD BY LIGHT MICROSCOPY Slight Normal [facility] Comment on above: Performed By: #### L [id number] ####[facility] ([facility])[address] [place] [address] ANISOCYTOSIS PRESENCE IN BLOOD BY LIGHT MICROSCOPY Moderate Normal [facility] Comment on above: Performed By: #### L [id number] ####[facility] ([facility])[address] [place] [address] BASOPHILS (10*3/UL) IN BLOOD BY CALCULATION 0.03 10*3/uL Normal 0.00-0.20 [facility] Comment on above: Performed By: #### L [id number] ####[facility] ([facility])[address] [facility] [address] BASOPHILS/100 LEUKOCYTES IN BLOOD BY AUTOMATED COUNT 0.6 % Normal 0.0-1.0 [facility] Comment on above: Performed By: #### L [id number] ####[facility] ([facility])[address] [facility] [address] ELLIPTOCYTES IN BLOOD BY LIGHT MICROSCOPY Slight Normal [facility] Comment on above: Performed By: #### L [id number] ####[facility] ([facility])[address] [facility] [address] EOSINOPHILS (10*3/UL) IN BLOOD BY CALCULATION 0.14 10*3/uL Normal 0.00-0.50 [facility] Comment on above: Performed By: #### L [id number] ####[facility] ([facility])[address] [facility] [address] EOSINOPHILS/100 LEUKOCYTES IN BLOOD BY AUTOMATED COUNT 2.6 % Normal 0.0-6.0 [facility] Comment on above: Performed By: #### L [id number] ####[facility] ([facility])[address] [place] [address] IMMATURE GRANULOCYTES (10*3/UL) IN BLOOD BY CALCULATION 0.07 10*3/uL Normal 0.00-0.20 [facility] Comment on above: Performed By: #### L [id number] ####[facility] ([facility])[address] [place] [address] IMMATURE GRANULOCYTES/100 LEUKOCYTES IN BLOOD BY AUTOMATED COUNT 1.3 % High 0.0-1.0 [facility] Comment on above: Performed By: #### L [id number] ####[facility] ([facility])[address] [place] [address] LYMPHOCYTES (10*3/UL) IN BLOOD BY CALCULATION 0.95 10*3/uL Low 1.20-4.00 [facility] Comment on above: Performed By: #### L [id number] ####[facility] ([facility])[address] [place] [address] LYMPHOCYTES/100 LEUKOCYTES IN BLOOD BY AUTOMATED COUNT 17.9 % Low 20.0-45.0 [facility] Comment on above: Performed By: #### L [id number] ####[facility] ([facility])[address] [place] [address] MONOCYTES (10*3/UL) IN BLOOD BY CALCUATION 0.42 10*3/uL Normal 0.10-1.00 [facility] Comment on above: Performed By: #### L [id number] ####[facility] ([facility])[address] [place] [address] MONOCYTES/100 LEUKOCYTES IN BLOOD BY AUTOMATED COUNT 7.9 % Normal 5.0-12.0 [facility] Comment on above: Performed By: #### L [id number] ####[facility] ([facility])[address] [place] [address] NEUTROPHILS (10*3/UL) IN BLOOD BY CALCULATION 3.7 10*3/uL Normal 1.6-7.6 [facility] Comment on above: Performed By: #### L [id number] ####[facility] ([facility] [facility] [address] NEUTROPHILS/100 LEUKOCYTES IN BLOOD BY AUTOMATED COUNT 69.7 % Normal 40.0-72.0 [facility] Comment on above: Performed By: #### L [id number] ####[facility] ([facility] [facility] [address] OVALOCYTES PRESENCE IN BLOOD BY LIGHT MICROSCOPY Slight Normal [facility] Comment on above: Performed By: #### L [id number] ####[facility] ([facility])[address] [facility] [facility] [place] [address] POIKILOCYTOSIS (PRESENCE) IN BLOOD BY LIGHT MICROSCOPY Moderate Normal [facility] Comment on above: Performed By: #### L [id number] ####[facility] ([facility])[address] [place] [address] POLYCHROMASIA IN BLOOD BY LIGHT MICROSCOPY Slight Normal [facility] Comment on above: Performed By: #### L [id number] ####[facility] ([facility])[address] [facility] [place] [address] PHOSPHORUSon 10-07-2024 Magnesium [Mass/Vol] 2.0 mg/dL Low 2.5-5.0 [facility] Comment on above: Performed By: #### L [id number] ####[facility] ([facility])[address] [facility] [place] [address] 30on 10-06-2024 30 Normal [facility] ANTI-XA (HEPARIN LEVEL)on HEPARIN UNFRACTIONATED (U/ML) IN PPP BY CHROMOGENIC METHOD 0.43 IU/mL Normal 0.3-0.7 [facility] Comment on above: Result Comment: [place] roxaban and Apixaban will interfere with the anti Xa assay used to monitor UFH and LMWH. Performed By: #### L [id number] ####[facility] ([facility])[address] [place] [address] CBC WITH AUTO DIFFERENTIALon 10-06-2024 Erythrocyte distribution width (RBC) [Ratio] 23.7 % High 11.5-15.0 [facility] Comment on above: Performed By: #### L [id number] ####[facility] ([facility] [place] [address] ERYTHROCYTE MEAN CORPUSCULAR HEMOGLOBIN CONCENTRATION (G/DL) BY AUTOMATED 30.8 g/dL Low 32.0-35.0 [facility] Comment on above: Performed By: #### L [id number] ####[facility] ([facility])[address] [place] [address] Hematocrit (Bld) [Volume fraction] 32.8 % Low 39.0-55.0 [facility] Comment on above: Performed By: #### L [id number] ####[facility] ([facility])[address] [place] [address] Hemoglobin (Bld) [Mass/Vol] 10.1 g/dL Low 13.0-17.0 [facility] Comment on above: Performed By: #### L [id number] ####[facility] ([facility] [place] [address] IMMATURE PLATELET FRACTION % 3.1 % Normal 0.8-6.3 [facility] Comment on above: Performed By: #### L [id number] ####[facility] ([facility] [place] [address] MCH (RBC) [Entitic mass] 27.7 pg Normal 27.0-33.0 [facility] Comment on above: Performed By: #### L [id number] ####[facility] ([facility])[address] [place] [address] MCV (RBC) [Entitic vol] 90.1 fL Normal 82.0-98.0 [facility] Comment on above: Performed By: #### L [id number] ####[facility] ([facility])[address] [place] [address] NRBC (PER 100 WBCS) BY AUTOMATED COUNT 0.0 % Normal 0 [facility] Comment on above: Performed By: #### L [id number] ####[facility] ([facility])[address] [place] [address] PLATELETS (10*3/UL) IN BLOOD AUTOMATED COUNT 103 10*3/uL Low 150-400 [facility] Comment on above: Performed By: #### L [id number] ####[facility] ([facility])[address] [place] [address] RBC (Bld) [#/Vol] 3.64 10*6/uL Low 4.20-5.70 [facility] Comment on above: Performed By: #### L [id number] ####[facility] ([facility])[address] [place] [address] WBC (Bld) [#/Vol] 6.13 10*3/uL Normal 4.00-10.60 [facility] Comment on above: Performed By: #### L [id number] ####[facility] ([facility])[address] [place] [address] COMPREHENSIVE METABOLIC PANE [place] 10-06-2024 Albumin [Mass/Vol] 3.6 g/dL Normal 3.5-5.7 [facility] Comment on above: Performed By: #### L [id number] ####[facility] ([facility])[address] [place] [address] ALP [Catalytic activity/Vol] 105 U/L High 34-104 [facility] Comment on above: Performed By: #### L [id number] ####[facility] ([facility])[address] [place] [address] ALT [Catalytic activity/Vol] 234 U/L High 7-52 [facility] Comment on above: Performed By: #### L [id number] ####[facility] ([facility])[address] [place] [address] Anion gap [Moles/Vol] 11 mmol/L Normal 7-20 [facility] Comment on above: Performed By: #### L [id number] ####[facility] ([facility])[address] [place] [address] AST [Catalytic activity/Vol] 70 U/L High 13-39 [facility] Comment on above: Performed By: #### L [id number] ####[facility] ([facility] [place] [address] Bilirubin [Mass/Vol] 1.9 mg/dL High 0.3-1.0 [facility] Comment on above: Performed By: #### L [id number] ####[facility] ([facility])[address] [place] [address] Calcium [Mass/Vol] 8.7 mg/dL Normal 8.6-10.3 [facility] Comment on above: Performed By: #### L [id number] ####[facility] ([facility])[address] [place], [place] [address] Chloride [Moles/Vol] 98 mmol/L Normal 98-107 [facility] Comment on above: Performed By: #### L [id number] ####[facility] ([facility])[address] [place] [address] CO2 [Moles/Vol] 28 mmol/L Normal 21-31 [facility] Comment on above: Performed By: #### L [id number] ####[facility] ([facility])[address] [place] [address] Creatinine [Mass/Vol] 1.81 mg/dL High 0.70-1.30 [facility] Comment on above: Performed By: #### L [id number] ####[facility] ([facility])[address] [place] [address] GLOMERULAR FILTRATION RATE ML/MIN/1.73 SQ M.PREDICTED 36.9 mL/min/1.73m*2 Low >60.0 [facility] Comment on above: Result Comment: [facility]???s estimated glomerular filtration rate (eGFR) will no [...] of individuals. Performed By: #### L [id number] ####[facility] ([facility])[address] [place] [address] Glucose [Mass/Vol] 78 mg/dL Normal 70-100 [facility] Comment on above: Performed By: #### L [id number] ####[facility] ([facility])[address] [place] [address] Potassium [Moles/Vol] 4.3 mmol/L Normal 3.5-5.1 [facility] Comment on above: Performed By: #### L [id number] ####[facility] ([facility])[address] [place] [address] Protein [Mass/Vol] 6.1 g/dL Normal 6.0-8.3 [facility] Comment on above: Performed By: #### L [id number] ####[facility] ([facility])[address] [place] [address] Sodium [Moles/Vol] 133 mmol/L Low 136-145 [facility] Comment on above: Performed By: #### L [id number] ####[facility] ([facility])[address] [place] [address] Urea nitrogen [Mass/Vol] 39 mg/dL High 7-25 [facility] Comment on above: Performed By: #### L [id number] ####[facility] ([facility])[address] [place] [address] UREA NITROGEN/CREATININE (MASS RATIO) IN SER/PLAS 21.5 Normal [facility] Comment on above: Performed By: #### L [id number] ####[facility] ([facility])[address] [place] [address] Albumin [Mass/Vol] 3.3 g/dL Low 3.5-5.7 [facility] Comment on above: Performed By: #### L [id number] ####[facility] ([facility])[address] [place] [address] ALP [Catalytic activity/Vol] 100 U/L Normal 34-104 [facility] Comment on above: Performed By: #### L [id number] ####[facility] ([facility])[address] [place] [address] ALT [Catalytic activity/Vol] 232 U/L High 7-52 [facility] Comment on above: Performed By: #### L [id number] ####[facility] ([facility])[address] [place] [address] Anion gap [Moles/Vol] 12 mmol/L Normal 7-20 [facility] Comment on above: Performed By: #### L [id number] ####[facility] ([facility])[address] [place] [address] AST [Catalytic activity/Vol] 71 U/L High 13-39 [facility] Comment on above: Performed By: #### L [id number] ####[facility] ([facility])[address] [place] [address] Bilirubin [Mass/Vol] 1.7 mg/dL High 0.3-1.0 [facility] Comment on above: Performed By: #### L [id number] ####[facility] ([facility])[address] [place] [address] Calcium [Mass/Vol] 8.3 mg/dL Low 8.6-10.3 [facility] Comment on above: Performed By: #### L [id number] ####[facility] [facility] ([facility])[address] [place] [address] Chloride [Moles/Vol] 100 mmol/L Normal 98-107 [facility] Comment on above: Performed By: #### L [id number] ####[facility] ([facility])[address] [place] [address] CO2 [Moles/Vol] 28 mmol/L Normal 21-31 [facility] Comment on above: Performed By: #### L [id number] ####[facility] ([facility] [place] [address] Creatinine [Mass/Vol] 1.88 mg/dL High 0.70-1.30 [facility] Comment on above: Performed By: #### L [id number] ####[facility] ([facility])[address] [place] [address] GLOMERULAR FILTRATION RATE ML/MIN/1.73 SQ M.PREDICTED 35.2 mL/min/1.73m*2 Low >60.0 [facility] Comment on above: Result Comment: The [facility]???s estimated glomerular filtration rate (eGFR) will no [...] of individuals. Performed By: #### L [id number] ####[facility] ([facility])[address] [place] [address] Glucose [Mass/Vol] 101 mg/dL High 70-100 [facility] Comment on above: Performed By: #### L [id number] ####[facility] ([facility])[address] [place] [address] Potassium [Moles/Vol] 3.7 mmol/L Normal 3.5-5.1 [facility] Comment on above: Performed By: #### L [id number] ####[facility] ([facility])[address] [place] [address] Protein [Mass/Vol] 5.6 g/dL Low 6.0-8.3 [facility] Comment on above: Performed By: #### L [id number] ####[facility] ([facility] [place] [address] Sodium [Moles/Vol] 136 mmol/L Normal 136-145 [facility] Comment on above: Performed By: #### L [id number] ####[facility] ([facility])[address] [place] [address] Urea nitrogen [Mass/Vol] 41 mg/dL High 7-25 [facility] Comment on above: Performed By: #### L [id number] ####[facility] ([facility])[address] [place] [address] UREA NITROGEN/CREATININE (MASS RATIO) IN SER/PLAS 21.8 Normal [facility] Comment on above: Performed By: #### L [id number] ####[facility] ([facility])[address] [place] [address] MAGNESIUMon 10-06-2024 Magnesium [Mass/Vol] 1.9 mg/dL Normal 1.9-2.7 [facility] Comment on above: Performed By: #### L [id number] ####[facility] ([facility])[address] [place] [address] MANUAL DIFFERENTIALon 2024 ACANTHOCYTES PRESENCE IN BLOOD BY LIGHT MICROSCOPY Moderate Normal [facility] Comment on above: Performed By: #### L [id number] ####[facility] ([facility])[address] [place] [address] BASOPHILS (10*3/UL) IN BLOOD BY CALCULATION 0.04 10*3/uL Normal 0.00-0.20 [facility] Comment on above: Performed By: #### L [id number] ####[facility] ([facility])[address] [place] [address] BASOPHILS/100 LEUKOCYTES IN BLOOD BY AUTOMATED COUNT 0.7 % Normal 0.0-1.0 [facility] Comment on above: Performed By: #### L [id number] ####[facility] ([facility])[address] [place] [address] ELLIPTOCYTES IN BLOOD BY LIGHT MICROSCOPY Slight Normal [facility] Comment on above: Performed By: #### L [id number] ####[facility] ([facility])[address] [place] [address] EOSINOPHILS (10*3/UL) IN BLOOD BY CALCULATION 0.21 10*3/uL Normal 0.00-0.50 [facility] Comment on above: Performed By: #### L [id number] ####[facility] ([facility])[address] [place] [address] EOSINOPHILS/100 LEUKOCYTES IN BLOOD BY AUTOMATED COUNT 3.4 % Normal 0.0-6.0 [facility] Comment on above: Performed By: #### L [id number] ####[facility] ([facility])[address] [place] [address] IMMATURE GRANULOCYTES (10*3/UL) IN BLOOD BY CALCULATION 0.07 10*3/uL Normal 0.00-0.20 [facility] Comment on above: Performed By: #### L [id number] ####[facility] ([facility])[address] [place] [address] IMMATURE GRANULOCYTES/100 LEUKOCYTES IN BLOOD BY AUTOMATED COUNT 1.1 % High 0.0-1.0 [facility] Comment on above: Performed By: #### L [id number] ####[facility] ([facility])[address] [place] [address] LYMPHOCYTES (10*3/UL) IN BLOOD BY CALCULATION 0.96 10*3/uL Low 1.20-4.00 [facility] Comment on above: Performed By: #### L [id number] ####[facility] ([facility])[address] [place] [address] LYMPHOCYTES/100 LEUKOCYTES IN BLOOD BY AUTOMATED COUNT 15.7 % Low 20.0-45.0 [facility] Comment on above: Performed By: #### L [id number] ####[facility] ([facility])[address] [place] [address] MONOCYTES (10*3/UL) IN BLOOD BY CALCUATION 0.64 10*3/uL Normal 0.10-1.00 [facility] Comment on above: Performed By: #### L [id number] ####[facility] ([facility] [place] [address] MONOCYTES/100 LEUKOCYTES IN BLOOD BY AUTOMATED COUNT 10.4 % Normal 5.0-12.0 [facility] Comment on above: Performed By: #### L [id number] ####[facility] ([facility])[address] [place] [address] NEUTROPHILS (10*3/UL) IN BLOOD BY CALCULATION 4.2 10*3/uL Normal 1.6-7.6 [facility] Comment on above: Performed By: #### L [id number] ####[facility] ([facility])[address] [place] [address] NEUTROPHILS/100 LEUKOCYTES IN BLOOD BY AUTOMATED COUNT 68.7 % Normal 40.0-72.0 [facility] Comment on above: Performed By: #### L [id number] ####[facility] ([facility])[address] [place] [address] POIKILOCYTOSIS (PRESENCE) IN BLOOD BY LIGHT MICROSCOPY Moderate Normal [facility] Comment on above: Performed By: #### L [id number] ####[facility] ([facility])[address] [place] [address] POLYCHROMASIA IN BLOOD BY LIGHT MICROSCOPY Slight Normal [facility] Comment on above: Performed By: #### L [id number] ####[facility] ([facility])[address] [place] [address] SCHISTOCYTES (PRESENCE) IN BLOOD BY LIGHT MICROSCOPY Slight Normal [facility] Comment on above: Performed By: #### L [id number] ####[facility] ([facility])[address] [place] [address] PHOSPHORUSon 10-06-2024 Magnesium [Mass/Vol] 1.8 mg/dL Low 2.5-5.0 [facility] Comment on above: Performed By: #### L [id number] ####[facility] ([facility])[address] [place] [address] Magnesium [Mass/Vol] 1.8 mg/dL Low 1.9-2.7 [facility] Comment on above: Performed By: #### L [id number] ####[facility] ([facility])[address] [place] [address] Performed By: #### L [id number] ####[facility] ([facility])[address] [place] [address] 30on 10-05-2024 30 Normal [facility] ANTI-XA (HEPARIN LEVEL)on HEPARIN UNFRACTIONATED (U/ML) IN PPP BY CHROMOGENIC METHOD 0.31 IU/mL Normal 0.3-0.7 [facility] Comment on above: Result Comment: Padmini roxaban and Apixaban will interfere with the anti Xa assay used to monitor UFH and LMWH. Performed By: #### L [id number] ####[facility] ([facility])[address] [place] [address] CBC WITH AUTO DIFFERENTIALon 10-05-2024 Erythrocyte distribution width (RBC) [Ratio] 23.7 % High 11.5-15.0 [facility] Comment on above: Performed By: #### L [id number] ####[facility] ([facility])[address] [place] [address] ERYTHROCYTE MEAN CORPUSCULAR HEMOGLOBIN CONCENTRATION (G/DL) BY AUTOMATED 31.2 g/dL Low 32.0-35.0 [facility] Comment on above: Performed By: #### L [id number] ####[facility] ([facility])[address] [place] [address] Hematocrit (Bld) [Volume fraction] 33.0 % Low 39.0-55.0 [facility] Comment on above: Performed By: #### L [id number] ####[facility] ([facility])[address] [place] [address] Hemoglobin (Bld) [Mass/Vol] 10.3 g/dL Low 13.0-17.0 [facility] Comment on above: Performed By: #### L [id number] ####[facility] ([facility])[address] [place] [address] IMMATURE PLATELET FRACTION % 2.6 % Normal 0.8-6.3 [facility] Comment on above: Performed By: #### L [id number] ####[facility] ([facility])[address] [place] [address] MCH (RBC) [Entitic mass] 28.2 pg Normal 27.0-33.0 [facility] Comment on above: Performed By: #### L [id number] ####[facility] ([facility])[address] [place] [address] MCV (RBC) [Entitic vol] 90.4 fL Normal 82.0-98.0 [facility] Comment on above: Performed By: #### L [id number] ####[facility] ([facility])[address] [place] [address] NRBC (PER 100 WBCS) BY AUTOMATED COUNT 0.0 % Normal 0 [facility] Comment on above: Performed By: #### L [id number] ####[facility] ([facility])[address] [place] [address] PLATELETS (10*3/UL) IN BLOOD AUTOMATED COUNT 106 10*3/uL Low 150-400 [facility] Comment on above: Performed By: #### L [id number] ####[facility] ([facility])[address] [place] [address] RBC (Bld) [#/Vol] 3.65 10*6/uL Low 4.20-5.70 [facility] Comment on above: Performed By: #### L [id number] ####[facility] ([facility])[address] [place] [address] WBC (Bld) [#/Vol] 5.63 10*3/uL Normal 4.00-10.60 [facility] Comment on above: Performed By: #### L [id number] ####[facility] ([facility])[address] [place] [address] COMPREHENSIVE METABOLIC PANE Aldo 10-05-2024 Albumin [Mass/Vol] 3.5 g/dL Normal 3.5-5.7 [facility] Comment on above: Performed By: #### L [id number] ####[facility] ([facility])[address] [place] [address] ALP [Catalytic activity/Vol] 103 U/L Normal 34-104 [facility] Comment on above: Performed By: #### L [id number] ####[facility] ([facility])[address] [place] [address] ALT [Catalytic activity/Vol] 277 U/L High 7-52 [facility] Comment on above: Performed By: #### L [id number] ####[facility] ([facility])[address] [place] [address] Anion gap [Moles/Vol] 13 mmol/L Normal 7-20 [facility] Comment on above: Performed By: #### L [id number] ####[facility] ([facility])[address] [place] [address] AST [Catalytic activity/Vol] 91 U/L High 13-39 [facility] Comment on above: Performed By: #### L [id number] ####[facility] ([facility])[address] [place] [address] Bilirubin [Mass/Vol] 1.8 mg/dL High 0.3-1.0 [facility] Comment on above: Performed By: #### L [id number] ####[facility] ([facility])[address] [place] [address] Calcium [Mass/Vol] 8.5 mg/dL Low 8.6-10.3 [facility] Comment on above: Performed By: #### L [id number] ####[facility] ([facility])[address] [place] [address] Chloride [Moles/Vol] 99 mmol/L Normal 98-107 [facility] Comment on above: Performed By: #### L [id number] ####[facility] ([facility])[address] [place] [address] CO2 [Moles/Vol] 27 mmol/L Normal 21-31 [facility] Comment on above: Performed By: #### L [id number] ####[facility] ([facility])[address] [place] [address] Creatinine [Mass/Vol] 1.96 mg/dL High 0.70-1.30 [facility] Comment on above: Performed By: #### L [id number] ####[facility] ([facility])[address] [place] [address] GLOMERULAR FILTRATION RATE ML/MIN/1.73 SQ M.PREDICTED 33.5 mL/min/1.73m*2 Low >60.0 [facility] Comment on above: Result Comment: The [facility]???s estimated glomerular filtration rate (eGFR) will no [...] of individuals. Performed By: #### L [id number] ####[facility] ([facility])[address] [place] [address] Glucose [Mass/Vol] 90 mg/dL Normal 70-100 [facility] Comment on above: Performed By: #### L [id number] ####[facility] ([facility])[address] [place] [address] Potassium [Moles/Vol] 3.8 mmol/L Normal 3.5-5.1 [facility] Comment on above: Performed By: #### L [id number] ####[facility] ([facility])[address] [place] [address] Protein [Mass/Vol] 6.0 g/dL Normal 6.0-8.3 [facility] Comment on above: Performed By: #### L [id number] ####[facility] ([facility])[address] [place] [address] Sodium [Moles/Vol] 135 mmol/L Low 136-145 [facility] Comment on above: Performed By: #### L [id number] ####[facility] ([facility])[address] [place] [address] Urea nitrogen [Mass/Vol] 43 mg/dL High 7-25 [facility] Comment on above: Performed By: #### L [id number] ####[facility] ([facility])[address] [place] [address] UREA NITROGEN/CREATININE (MASS RATIO) IN SER/PLAS 21.9 Normal [facility] Comment on above: Performed By: #### L [id number] ####[facility] ([facility])[address] [place] [address] Albumin [Mass/Vol] 3.2 g/dL Low 3.5-5.7 [facility] Comment on above: Performed By: #### L [id number] ####[facility] ([facility])[address] [place] [address] ALP [Catalytic activity/Vol] 93 U/L Normal 34-104 [facility] Comment on above: Performed By: #### L [id number] ####[facility] ([facility])[address] [place] [address] ALT [Catalytic activity/Vol] 279 U/L High 7-52 [facility] Comment on above: Performed By: #### L [id number] ####[facility] ([facility])[address] [place] [address] Anion gap [Moles/Vol] 12 mmol/L Normal 7-20 [facility] Comment on above: Performed By: #### L [id number] ####[facility] ([facility])[address] [place] [address] AST [Catalytic activity/Vol] 93 U/L High 13-39 [facility] Comment on above: Performed By: #### L [id number] ####[facility] ([facility])[address] [place] [address] Bilirubin [Mass/Vol] 1.6 mg/dL High 0.3-1.0 [facility] Comment on above: Performed By: #### L [id number] ####[facility] ([facility])[address] [place] [address] Calcium [Mass/Vol] 8.2 mg/dL Low 8.6-10.3 [facility] Comment on above: Performed By: #### L [id number] ####[facility] ([facility])[address] [place] [address] Chloride [Moles/Vol] 100 mmol/L Normal 98-107 [facility] Comment on above: Performed By: #### L [id number] ####[facility] ([facility])[address] [place] [address] CO2 [Moles/Vol] 28 mmol/L Normal 21-31 [facility] Comment on above: Performed By: #### L [id number] ####[facility] ([facility])[address] [place] [address] Creatinine [Mass/Vol] 2.07 mg/dL High 0.70-1.30 [facility] Comment on above: Performed By: #### L [id number] ####[facility] ([facility])[address] [place] [address] GLOMERULAR FILTRATION RATE ML/MIN/1.73 SQ M.PREDICTED 31.4 mL/min/1.73m*2 Low >60.0 [facility] Comment on above: Result Comment: [facility]???s estimated glomerular filtration rate (eGFR) will no [...] of individuals. Performed By: #### L [id number] ####[facility] ([facility])[address] [place] [address] Glucose [Mass/Vol] 102 mg/dL High 70-100 [facility] Comment on above: Performed By: #### L [id number] ####[facility] ([facility])[address] [place] [address] Potassium [Moles/Vol] 3.6 mmol/L Normal 3.5-5.1 [facility] Comment on above: Performed By: #### L [id number] ####[facility] ([facility])[address] [place] [address] Protein [Mass/Vol] 5.3 g/dL Low 6.0-8.3 [facility] Comment on above: Performed By: #### L [id number] ####[facility] ([facility])[address] [place] [address] Sodium [Moles/Vol] 136 mmol/L Normal 136-145 [facility] Comment on above: Performed By: #### L [id number] ####[facility] ([facility])[address] [place] [address] Urea nitrogen [Mass/Vol] 45 mg/dL High 7-25 [facility] Comment on above: Performed By: #### L [id number] ####[facility] ([facility])[address] [place] [address] UREA NITROGEN/CREATININE (MASS RATIO) IN SER/PLAS 21.7 Normal [facility] Comment on above: Performed By: #### L [id number] ####[facility] ([facility])[address] [place] [address] MAGNESIUMon 10-05-2024 Magnesium [Mass/Vol] 2.0 mg/dL Normal 1.9-2.7 [facility] Comment on above: Performed By: #### L [id number] ####[facility] ([facility])[address] [place] [address] Magnesium [Mass/Vol] 1.9 mg/dL Normal 1.9-2.7 [facility] Comment on above: Performed By: #### L [id number] ####[facility] ([facility])[address] [place] [address] MANUAL DIFFERENTIALon 2024 ACANTHOCYTES PRESENCE IN BLOOD BY LIGHT MICROSCOPY Moderate Normal [facility] Comment on above: Performed By: #### L [id number] ####[facility] ([facility])[address] [place] [address] ANISOCYTOSIS PRESENCE IN BLOOD BY LIGHT MICROSCOPY Moderate Normal [facility] Comment on above: Performed By: #### L [id number] ####[facility] ([facility])[address] [place] [address] BASOPHILS (10*3/UL) IN BLOOD BY CALCULATION 0.04 10*3/uL Normal 0.00-0.20 [facility] Comment on above: Performed By: #### L [id number] ####[facility] ([facility])[address] [place] [address] BASOPHILS/100 LEUKOCYTES IN BLOOD BY AUTOMATED COUNT 0.7 % Normal 0.0-1.0 [facility] Comment on above: Performed By: #### L [id number] ####[facility] ([facility])[address] [place] [address] ELLIPTOCYTES IN BLOOD BY LIGHT MICROSCOPY Slight Normal [facility] Comment on above: Performed By: #### L [id number] ####[facility] ([facility])[address] [place] [address] EOSINOPHILS (10*3/UL) IN BLOOD BY CALCULATION 0.19 10*3/uL Normal 0.00-0.50 [facility] Comment on above: Performed By: #### L [id number] ####[facility] ([facility])[address] [place] [address] EOSINOPHILS/100 LEUKOCYTES IN BLOOD BY AUTOMATED COUNT 3.4 % Normal 0.0-6.0 [facility] Comment on above: Performed By: #### L [id number] ####[facility] ([facility])[address] [place] [address] IMMATURE GRANULOCYTES (10*3/UL) IN BLOOD BY CALCULATION 0.06 10*3/uL Normal 0.00-0.20 [facility] Comment on above: Performed By: #### L [id number] ####[facility] ([facility])[address] [place] [address] IMMATURE GRANULOCYTES/100 LEUKOCYTES IN BLOOD BY AUTOMATED COUNT 1.1 % High 0.0-1.0 [facility] Comment on above: Performed By: #### L [id number] ####[facility] ([facility])[address] [place] [address] LYMPHOCYTES (10*3/UL) IN BLOOD BY CALCULATION 0.85 10*3/uL Low 1.20-4.00 [facility] Comment on above: Performed By: #### L [id number] ####[facility] ([facility])[address] [place] [address] LYMPHOCYTES/100 LEUKOCYTES IN BLOOD BY AUTOMATED COUNT 15.1 % Low 20.0-45.0 [facility] Comment on above: Performed By: #### L [id number] ####[facility] ([facility])[address] [place] [address] MONOCYTES (10*3/UL) IN BLOOD BY CALCUATION 0.66 10*3/uL Normal 0.10-1.00 [facility] Comment on above: Performed By: #### L [id number] ####[facility] ([facility])[address] [place] [address] MONOCYTES/100 LEUKOCYTES IN BLOOD BY AUTOMATED COUNT 11.7 % Normal 5.0-12.0 [facility] Comment on above: Performed By: #### L [id number] ####[facility] ([facility])[address] [place] [address] NEUTROPHILS (10*3/UL) IN BLOOD BY CALCULATION 3.8 10*3/uL Normal 1.6-7.6 [facility] Comment on above: Performed By: #### L [id number] ####[facility] ([facility] [place] [address] NEUTROPHILS/100 LEUKOCYTES IN BLOOD BY AUTOMATED COUNT 68.0 % Normal 40.0-72.0 [facility] Comment on above: Performed By: #### L [id number] ####[facility] ([facility])[address] [place] [address] POIKILOCYTOSIS (PRESENCE) IN BLOOD BY LIGHT MICROSCOPY Marked Normal [facility] Comment on above: Performed By: #### L [id number] ####[facility] ([facility])[address] [place] [address] POLYCHROMASIA IN BLOOD BY LIGHT MICROSCOPY Slight Normal [facility] Comment on above: Performed By: #### L [id number] ####[facility] ([facility])[address] [place] [address] SCHISTOCYTES (PRESENCE) IN BLOOD BY LIGHT MICROSCOPY Slight Normal [facility] Comment on above: Performed By: #### L [id number] ####[facility] ([facility])[address] [place] [address] NURSNOTEon 10-05-2024 NURSNOTE Normal [facility] PHOSPHORUSon 10-05-2024 Magnesium [Mass/Vol] 1.9 mg/dL Low 2.5-5.0 [facility] Comment on above: Performed By: #### L [id number] ####[facility] ([facility])[address] [place] [address] Magnesium [Mass/Vol] 2.1 mg/dL Low 2.5-5.0 [facility] Comment on above: Performed By: #### L [id number] ####[facility] ([facility])[address] [place] [address] POCT GLUCOSE METER UNSOLICIT ED RESULTSon 10-05-2024 Glucose [Mass/Vol] 117 mg/dL High 70-105 [facility] Comment on above: Order Comment: Waive d Testing in the ED is performed under the ED CLIA certificate #[id number]. Result Comment: [email or web address] Performed By: #### L [id number] ####[facility] [place] [address] Glucose [Mass/Vol] 111 mg/dL High 70-105 [facility] Comment on above: Order Comment: Waive d Testing in the ED is performed under the ED CLIA certificate #[id number]. Result Comment: [email or web address] Performed By: #### L [id number] ####[facility] ([facility])[address] [place] [address] 30on 10-04-2024 30 Normal [facility] ANTI-XA (HEPARIN LEVEL)on HEPARIN UNFRACTIONATED (U/ML) IN PPP BY CHROMOGENIC METHOD 0.50 IU/mL Normal 0.3-0.7 [facility] Comment on above: Result Comment: Padmini roxaban and Apixaban will interfere with the anti Xa assay used to monitor UFH and LMWH. Performed By: #### L [id number] ####[facility] ([facility])[address] [place] [address] BASIC METABOLIC PANELon 09-16 Anion gap [Moles/Vol] 14 mmol/L Normal 7-20 [facility] Comment on above: Performed By: #### L [id number] ####[facility] ([facility])[address] [place] [address] Calcium [Mass/Vol] 8.6 mg/dL Normal 8.6-10.3 [facility] Comment on above: Performed By: #### L [id number] ####[facility] ([facility])[address] [place] [address] Chloride [Moles/Vol] 100 mmol/L Normal 98-107 [facility] Comment on above: Performed By: #### L [id number] ####[facility] ([facility])[address] [place] [address] CO2 [Moles/Vol] 28 mmol/L Normal 21-31 [facility] Comment on above: Performed By: #### L [id number] ####[facility] ([facility])[address] [place] [address] Creatinine [Mass/Vol] 2.32 mg/dL High 0.70-1.30 [facility] Comment on above: Performed By: #### L [id number] ####[facility] ([facility])[address] [place] [address] GLOMERULAR FILTRATION RATE ML/MIN/1.73 SQ M.PREDICTED 27.4 mL/min/1.73m*2 Low >60.0 [facility] Comment on above: Result Comment: The [facility]???s estimated glomerular filtration rate (eGFR) will no [...] of individuals. Performed By: #### L [id number] ####[facility] ([facility])[address] [place] [address] Glucose [Mass/Vol] 120 mg/dL High 70-100 [facility] Comment on above: Performed By: #### L [id number] ####[facility] ([facility])[address] [place] [address] Potassium [Moles/Vol] 3.9 mmol/L Normal 3.5-5.1 [facility] Comment on above: Performed By: #### L [id number] ####[facility] ([facility])[address] [place] [address] Sodium [Moles/Vol] 138 mmol/L Normal 136-145 [facility] Comment on above: Performed By: #### L [id number] ####[facility] ([facility])[address] [facility] [place] [address] Urea nitrogen [Mass/Vol] 52 mg/dL High 7-25 [facility] Comment on above: Performed By: #### L [id number] ####[facility] ([facility])[address] [place] [address] UREA NITROGEN/CREATININE (MASS RATIO) IN SER/PLAS 22.4 Normal [facility] Comment on above: Performed By: #### L [id number] ####[facility] ([facility])[address] [place] [address] CBC WITH AUTO DIFFERENTIALon 10-04-2024 Erythrocyte distribution width (RBC) [Ratio] 23.1 % High 11.5-15.0 [facility] Comment on above: Performed By: #### L [id number] ####[facility] ([facility])[address] [place] [address] ERYTHROCYTE MEAN CORPUSCULAR HEMOGLOBIN CONCENTRATION (G/DL) BY AUTOMATED 30.9 g/dL Low 32.0-35.0 [facility] Comment on above: Performed By: #### L [id number] ####[facility] ([facility])[address] [place] [address] Hematocrit (Bld) [Volume fraction] 34.3 % Low 39.0-55.0 [facility] Comment on above: Performed By: #### L [id number] ####[facility] ([facility])[address] [place] [address] Hemoglobin (Bld) [Mass/Vol] 10.6 g/dL Low 13.0-17.0 [facility] Comment on above: Performed By: #### L [id number] ####[facility] ([facility])[address] [place] [address] IMMATURE PLATELET FRACTION % 3.2 % Normal 0.8-6.3 [facility] Comment on above: Performed By: #### L [id number] ####[facility] ([facility])[address] [place] [address] MCH (RBC) [Entitic mass] 27.5 pg Normal 27.0-33.0 [facility] Comment on above: Performed By: #### L [id number] ####[facility] ([facility])[address] [place] [address] MCV (RBC) [Entitic vol] 89.1 fL Normal 82.0-98.0 [facility] Comment on above: Performed By: #### L [id number] ####[facility] ([facility])[address] [place] [place] [address] NRBC (PER 100 WBCS) BY AUTOMATED COUNT 0.3 % High 0 [facility] Comment on above: Performed By: #### L [id number] ####[facility] ([facility])[address] [place] [address] PLATELETS (10*3/UL) IN BLOOD AUTOMATED COUNT 119 10*3/uL Low 150-400 [facility] Comment on above: Performed By: #### L [id number] ####[facility] ([facility])[address] [place] [address] RBC (Bld) [#/Vol] 3.85 10*6/uL Low 4.20-5.70 [facility] Comment on above: Performed By: #### L [id number] ####[facility] ([facility])[address] [place] [address] WBC (Bld) [#/Vol] 6.34 10*3/uL Normal 4.00-10.60 [facility] Comment on above: Performed By: #### L [id number] ####[facility] ([facility])[address] [place] [address] COMPREHENSIVE METABOLIC PANE Aldo 10-04-2024 Albumin [Mass/Vol] 3.5 g/dL Normal 3.5-5.7 [facility] Comment on above: Performed By: #### L [id number] ####[facility] ([facility])[address] [place] [address] ALP [Catalytic activity/Vol] 108 U/L High 34-104 [facility] Comment on above: Performed By: #### L [id number] ####[facility] ([facility])[address] [place] [address] ALT [Catalytic activity/Vol] 369 U/L High 7-52 [facility] Comment on above: Performed By: #### L [id number] ####[facility] ([facility])[address] [place] [address] Anion gap [Moles/Vol] 16 mmol/L Normal 7-20 [facility] Comment on above: Performed By: #### L [id number] ####[facility] ([facility])[address] [place] [address] AST [Catalytic activity/Vol] 138 U/L High 13-39 [facility] Comment on above: Performed By: #### L [id number] ####[facility] ([facility] [place] [address] Bilirubin [Mass/Vol] 1.9 mg/dL High 0.3-1.0 [facility] Comment on above: Performed By: #### L [id number] ####[facility] ([facility] [place] [address] Calcium [Mass/Vol] 8.5 mg/dL Low 8.6-10.3 [facility] Comment on above: Performed By: #### L [id number] ####[facility] ([facility])[address] [place] [address] Chloride [Moles/Vol] 100 mmol/L Normal 98-107 [facility] Comment on above: Performed By: #### L [id number] ####[facility] ([facility])[address] [place] [address] CO2 [Moles/Vol] 26 mmol/L Normal 21-31 [facility] Comment on above: Performed By: #### L [id number] ####[facility])[address] [place] [address] Creatinine [Mass/Vol] 2.13 mg/dL High 0.70-1.30 [facility] Comment on above: Performed By: #### L [id number] ####[facility] ([facility])[address] [place] [address] GLOMERULAR FILTRATION RATE ML/MIN/1.73 SQ M.PREDICTED 30.3 mL/min/1.73m*2 Low >60.0 [facility] Comment on above: Result Comment: The [facility]???s estimated glomerular filtration rate (eGFR) will no [...] of individuals. Performed By: #### L [id number] ####[facility] ([facility])[address] [place] [address] Glucose [Mass/Vol] 101 mg/dL High 70-100 [facility] Comment on above: Performed By: #### L [id number] ####[facility] ([facility])[address] [place] [address] Potassium [Moles/Vol] 3.8 mmol/L Normal 3.5-5.1 [facility] Comment on above: Performed By: #### L [id number] ####[facility] ([facility])[address] [place] [address] Protein [Mass/Vol] 6.1 g/dL Normal 6.0-8.3 [facility] Comment on above: Performed By: #### L [id number] ####[facility] ([facility])[address] [place] [address] Sodium [Moles/Vol] 138 mmol/L Normal 136-145 [facility] Comment on above: Performed By: #### L [id number] ####[facility] ([facility])[address] [place] [address] Urea nitrogen [Mass/Vol] 48 mg/dL High 7-25 [facility] Comment on above: Performed By: #### L [id number] ####[facility] ([facility])[address] [place] [address] UREA NITROGEN/CREATININE (MASS RATIO) IN SER/PLAS 22.5 Normal [facility] Comment on above: Performed By: #### L [id number] ####[facility] ([facility])[address] [place] [address] Albumin [Mass/Vol] 3.2 g/dL Low 3.5-5.7 [facility] Comment on above: Performed By: #### L [id number] ####[facility] ([facility])[address] [place] [address] ALP [Catalytic activity/Vol] 96 U/L Normal 34-104 [facility] Comment on above: Performed By: #### L [id number] ####[facility] ([facility])[address] [place] [address] ALT [Catalytic activity/Vol] 388 U/L High 7-52 [facility] Comment on above: Performed By: #### L [id number] ####[facility] ([facility])[address] [place] [address] Anion gap [Moles/Vol] 15 mmol/L Normal 7-20 [facility] Comment on above: Performed By: #### L [id number] ####[facility] ([facility])[address] [place] [address] AST [Catalytic activity/Vol] 163 U/L High 13-39 [facility] Comment on above: Performed By: #### L [id number] ####[facility] ([facility])[address] [place] [address] Bilirubin [Mass/Vol] 1.9 mg/dL High 0.3-1.0 [facility] Comment on above: Performed By: #### L [id number] ####[facility] ([facility])[address] [place] [address] Calcium [Mass/Vol] 8.3 mg/dL Low 8.6-10.3 [facility] Comment on above: Performed By: #### L [id number] ####[facility] ([facility])[address] [place] [address] Chloride [Moles/Vol] 100 mmol/L Normal 98-107 [facility] Comment on above: Performed By: #### L [id number] ####[facility] ([facility] [place] [address] CO2 [Moles/Vol] 29 mmol/L Normal 21-31 [facility] Comment on above: Performed By: #### L [id number] ####[facility] ([facility])[address] [place] [address] Creatinine [Mass/Vol] 2.51 mg/dL High 0.70-1.30 [facility] Comment on above: Performed By: #### L [id number] ####[facility] ([facility])[address] [place] [address] GLOMERULAR FILTRATION RATE ML/MIN/1.73 SQ M.PREDICTED 24.9 mL/min/1.73m*2 Low >60.0 [facility] Comment on above: Result Comment: The [facility]???s estimated glomerular filtration rate (eGFR) will no [...] of individuals. Performed By: #### L [id number] ####[facility] ([facility] [place] [address] Glucose [Mass/Vol] 107 mg/dL High 70-100 [facility] Comment on above: Performed By: #### L [id number] ####[facility] ([facility] [place] [address] Potassium [Moles/Vol] 3.2 mmol/L Low 3.5-5.1 [facility] Comment on above: Performed By: #### L [id number] ####[facility] ([facility])[address] [place] [address] Protein [Mass/Vol] 5.4 g/dL Low 6.0-8.3 [facility] Comment on above: Performed By: #### L [id number] ####[facility] ([facility])[address] [place] [address] Sodium [Moles/Vol] 141 mmol/L Normal 136-145 [facility] Comment on above: Performed By: #### L [id number] ####[facility] ([facility])[address] [place] [address] Urea nitrogen [Mass/Vol] 52 mg/dL High 7-25 [facility] Comment on above: Performed By: #### L [id number] ####[facility] ([facility])[address] [place] [address] UREA NITROGEN/CREATININE (MASS RATIO) IN SER/PLAS 20.7 Normal [facility] Comment on above: Performed By: #### L [id number] ####[facility] ([facility])[address] [place] [address] HEMOGLOBIN A1Con 10-04-2024 Glucose [Mass/Vol] 114 mg/dL Normal [facility] Comment on above: Performed By: #### L [id number] ####[facility] ([facility])[address] [place] [address] HbA1c (Bld) [Mass fraction] 5.6 % Normal 4.0-6.0 [facility] Comment on above: Performed By: #### L [id number] ####[facility] ([facility])[address] [place] [address] MAGNESIUMon 10-04-2024 Magnesium [Mass/Vol] 2.3 mg/dL Low 2.5-5.0 [facility] Comment on above: Performed By: #### L [id number] ####[facility] ([facility])[address] [place] [address] Performed By: #### L [id number] ####[facility] ([facility])[address] [place] [address] Magnesium [Mass/Vol] 1.7 mg/dL Low 1.9-2.7 [facility] Comment on above: Performed By: #### L [id number] ####[facility] ([facility])[address] [place] [address] MANUAL DIFFERENTIALon 2024 ACANTHOCYTES PRESENCE IN BLOOD BY LIGHT MICROSCOPY Moderate Normal [facility] Comment on above: Performed By: #### L [id number] ####[facility] ([facility])[address] [place] [address] ANISOCYTOSIS PRESENCE IN BLOOD BY LIGHT MICROSCOPY Moderate Normal [facility] Comment on above: Performed By: #### L [id number] ####[facility] ([facility])[address] [place] [address] BASOPHILS (10*3/UL) IN BLOOD BY CALCULATION 0.03 10*3/uL Normal 0.00-0.20 [facility] Comment on above: Performed By: #### L [id number] ####[facility] ([facility])[address] [place] [address] BASOPHILS/100 LEUKOCYTES IN BLOOD BY AUTOMATED COUNT 0.5 % Normal 0.0-1.0 [facility] Comment on above: Performed By: #### L [id number] ####[facility] ([facility])[address] [place] [address] HAMZAH CELLS PRESENCE IN BLOOD BY LIGHT MICROSCOPY Slight Normal [facility] Comment on above: Performed By: #### L [id number] ####[facility] ([facility])[address] [place] [address] EOSINOPHILS (10*3/UL) IN BLOOD BY CALCULATION 0.23 10*3/uL Normal 0.00-0.50 [facility] Comment on above: Performed By: #### L [id number] ####[facility] ([facility] [place] [address] EOSINOPHILS/100 LEUKOCYTES IN BLOOD BY AUTOMATED COUNT 3.6 % Normal 0.0-6.0 [facility] Comment on above: Performed By: #### L [id number] ####[facility] ([facility])[address] [place] [address] IMMATURE GRANULOCYTES (10*3/UL) IN BLOOD BY CALCULATION 0.05 10*3/uL Normal 0.00-0.20 [facility] Comment on above: Performed By: #### L [id number] ####[facility] ([facility])[address] [place] [address] IMMATURE GRANULOCYTES/100 LEUKOCYTES IN BLOOD BY AUTOMATED COUNT 0.8 % Normal 0.0-1.0 [facility] Comment on above: Performed By: #### L [id number] ####[facility] ([facility])[address] [place] [address] LYMPHOCYTES (10*3/UL) IN BLOOD BY CALCULATION 0.90 10*3/uL Low 1.20-4.00 [facility] Comment on above: Performed By: #### L [id number] ####[facility] ([facility])[address] [place] [address] LYMPHOCYTES/100 LEUKOCYTES IN BLOOD BY AUTOMATED COUNT 14.2 % Low 20.0-45.0 [facility] Comment on above: Performed By: #### L [id number] ####[facility] ([facility])[address] [place] [address] MONOCYTES (10*3/UL) IN BLOOD BY CALCUATION 0.78 10*3/uL Normal 0.10-1.00 [facility] Comment on above: Performed By: #### L [id number] ####[facility] ([facility])[address] [place] [address] MONOCYTES/100 LEUKOCYTES IN BLOOD BY AUTOMATED COUNT 12.3 % High 5.0-12.0 [facility] Comment on above: Performed By: #### L [id number] ####[facility] ([facility])[address] [place] [address] NEUTROPHILS (10*3/UL) IN BLOOD BY CALCULATION 4.3 10*3/uL Normal 1.6-7.6 [facility] Comment on above: Performed By: #### L [id number] ####[facility] ([facility])[address] [place] [address] NEUTROPHILS/100 LEUKOCYTES IN BLOOD BY AUTOMATED COUNT 68.6 % Normal 40.0-72.0 [facility] Comment on above: Performed By: #### L [id number] ####[facility] ([facility])[address] [place] [address] POIKILOCYTOSIS (PRESENCE) IN BLOOD BY LIGHT MICROSCOPY Marked Normal [facility] Comment on above: Performed By: #### L [id number] ####[facility] ([facility])[address] [place] [address] POLYCHROMASIA IN BLOOD BY LIGHT MICROSCOPY Slight Normal [facility] Comment on above: Performed By: #### L [id number] ####[facility] ([facility])[address] [facility] [place] [facility] [place] [address] SCHISTOCYTES (PRESENCE) IN BLOOD BY LIGHT MICROSCOPY Moderate Normal [facility] Comment on above: Performed By: #### L [id number] ####[facility] ([facility])[address] [place] [address] NURSNOTEon 10-04-2024 NURSNOTE Normal [facility] NURSNOTE Normal [facility] PHOSPHORUSon 10-04-2024 Magnesium [Mass/Vol] 2.8 mg/dL Normal 2.5-5.0 [facility] Comment on above: Performed By: #### L [id number] ####[facility] ([facility])[address] [facility] [facility] [place] [address] POCT GLUCOSE METER UNSOLICIT ED RESULTSon 10-04-2024 Glucose [Mass/Vol] 114 mg/dL High 70-105 [facility] Comment on above: Order Comment: Waive d Testing in the ED is performed under the ED CLIA certificate #[id number]. Result Comment: [email or web address] Performed By: #### L [id number] ####[facility] ([facility])[address] [place] [address] Glucose [Mass/Vol] 119 mg/dL High 70-105 [facility] Comment on above: Order Comment: Waive d Testing in the ED is performed under the ED CLIA certificate #[id number]. Result Comment: [email or web address] Performed By: #### L [id number] ####[facility] ([facility])[address] [place] [address] 30on 10-03-2024 30 Normal [facility] AMMONIAon 10-03-2024 AMMONIA (UMOL/L) IN PLASMA 48 umol/L Normal 18-72 [facility] Comment on above: Performed By: #### L [id number] ####[facility] ([facility])[address] [place] [address] ANTI-XA (HEPARIN LEVEL)on HEPARIN UNFRACTIONATED (U/ML) IN PPP BY CHROMOGENIC METHOD 0.30 IU/mL Normal 0.3-0.7 [facility] Comment on above: Order Comment: Check anti-Xa level every 6 hours while on heparin infusion, or per protocol. Result Comment: Padmiin roxaban and Apixaban will interfere with the anti Xa assay used to monitor UFH and LMWH. Performed By: #### L [id number] ####[facility] ([facility])[address] [place] [address] HEPARIN UNFRACTIONATED (U/ML) IN PPP BY CHROMOGENIC METHOD 0.40 IU/mL Normal 0.3-0.7 [facility] Comment on above: Result Comment: Padmini roxaban and Apixaban will interfere with the anti Xa assay used to monitor UFH and LMWH. Performed By: #### L [id number] ####[facility] ([facility])[address] [place] [address] APTTon 10-03-2024 ACTIVATED PARTIAL THROMBOPLASTIN TIME IN PPP BY COAGULATION ASSAY 38.7 Seconds High 25.0-35.0 [facility] Comment on above: Result Comment: Clin ical significance of the APTT is questionable in the presence of heparin. Performed By: #### L [id number] ####[facility] ([facility] [place] [address] CBC WITH AUTO DIFFERENTIALon 10-03-2024 Erythrocyte distribution width (RBC) [Ratio] 22.9 % High 11.5-15.0 [facility] Comment on above: Performed By: #### L [id number] ####[facility] ([facility])[address] [place] [address] ERYTHROCYTE MEAN CORPUSCULAR HEMOGLOBIN CONCENTRATION (G/DL) BY AUTOMATED 31.2 g/dL Low 32.0-35.0 [facility] Comment on above: Performed By: #### L [id number] ####[facility] ([facility])[address] [place] [address] Hematocrit (Bld) [Volume fraction] 33.0 % Low 39.0-55.0 [facility] Comment on above: Performed By: #### L [id number] ####[facility] ([facility])[address] [place] [address] Hemoglobin (Bld) [Mass/Vol] 10.3 g/dL Low 13.0-17.0 [facility] Comment on above: Performed By: #### L [id number] ####[facility] ([facility])[address] [place] [address] MCH (RBC) [Entitic mass] 27.6 pg Normal 27.0-33.0 [facility] Comment on above: Performed By: #### L [id number] ####[facility] ([facility] [place] [address] MCV (RBC) [Entitic vol] 88.5 fL Normal 82.0-98.0 [facility] Comment on above: Performed By: #### L [id number] ####[facility] ([facility] [place] [address] NRBC (PER 100 WBCS) BY AUTOMATED COUNT 0.0 % Normal 0 [facility] Comment on above: Performed By: #### L [id number] ####[facility] ([facility])[address] [place] [address] PLATELETS (10*3/UL) IN BLOOD AUTOMATED COUNT 141 10*3/uL Low 150-400 [facility] Comment on above: Performed By: #### L [id number] ####[facility] ([facility])[address] [place] [address] RBC (Bld) [#/Vol] 3.73 10*6/uL Low 4.20-5.70 [facility] Comment on above: Performed By: #### L [id number] ####[facility] ([facility])[address] [place] [address] WBC (Bld) [#/Vol] 5.89 10*3/uL Normal 4.00-10.60 [facility] Comment on above: Performed By: #### L [id number] ####[facility] ([facility])[address] [place] [address] COMPREHENSIVE METABOLIC PANE Aldo 10-03-2024 Albumin [Mass/Vol] 3.3 g/dL Low 3.5-5.7 [facility] Comment on above: Performed By: #### L [id number] ####[facility] ([facility])[address] [place] [address] ALP [Catalytic activity/Vol] 93 U/L Normal 34-104 [facility] Comment on above: Performed By: #### L [id number] ####[facility] ([facility])[address] [place] [address] ALT [Catalytic activity/Vol] 529 U/L High 7-52 [facility] Comment on above: Performed By: #### L [id number] ####[facility] ([facility])[address] [place] [address] Anion gap [Moles/Vol] 18 mmol/L Normal 7-20 [facility] Comment on above: Performed By: #### L [id number] ####[facility] ([facility])[address] [place] [address] AST [Catalytic activity/Vol] 270 U/L High 13-39 [facility] Comment on above: Performed By: #### L [id number] ####[facility] ([facility])[address] [place] [address] Bilirubin [Mass/Vol] 1.7 mg/dL High 0.3-1.0 [facility] Comment on above: Performed By: #### L [id number] ####[facility] ([facility])[address] [place] [address] Calcium [Mass/Vol] 8.5 mg/dL Low 8.6-10.3 [facility] Comment on above: Performed By: #### L [id number] ####[facility] ([facility])[address] [place] [address] Chloride [Moles/Vol] 100 mmol/L Normal 98-107 [facility] Comment on above: Performed By: #### L [id number] ####[facility] ([facility])[address] [place] [address] CO2 [Moles/Vol] 26 mmol/L Normal 21-31 [facility] Comment on above: Performed By: #### L [id number] ####[facility] ([facility])[address] [place] [address] Creatinine [Mass/Vol] 3.08 mg/dL High 0.70-1.30 [facility] Comment on above: Performed By: #### L [id number] ####[facility] ([facility])[address] [place] [address] GLOMERULAR FILTRATION RATE ML/MIN/1.73 SQ M.PREDICTED 19.5 mL/min/1.73m*2 Low >60.0 [facility] Comment on above: Result Comment: The [facility]???s estimated glomerular filtration rate (eGFR) will no [...] of individuals. Performed By: #### L [id number] ####[facility] ([facility])[address] [place] [address] Glucose [Mass/Vol] 126 mg/dL High 70-100 [facility] Comment on above: Performed By: #### L [id number] ####[facility] ([facility])[address] [place] [address] Potassium [Moles/Vol] 2.8 mmol/L Invalid Interpretation Code 3.5-5.1 [facility] Comment on above: Performed By: #### L [id number] ####[facility] ([facility])[address] [place] [address] Protein [Mass/Vol] 5.3 g/dL Low 6.0-8.3 [facility] Comment on above: Performed By: #### L [id number] ####[facility] ([facility])[address] [place] [address] Sodium [Moles/Vol] 141 mmol/L Normal 136-145 [facility] Comment on above: Performed By: #### L [id number] ####[facility] ([facility])[address] [place] [address] Urea nitrogen [Mass/Vol] 60 mg/dL High 7-25 [facility] Comment on above: Performed By: #### L [id number] ####[facility] ([facility])[address] [place] [address] UREA NITROGEN/CREATININE (MASS RATIO) IN SER/PLAS 19.5 Normal [facility] Comment on above: Performed By: #### L [id number] ####[facility] ([facility])[address] [place] [address] MAGNESIUMon 10-03-2024 Magnesium [Mass/Vol] 1.9 mg/dL Normal 1.9-2.7 [facility] Comment on above: Performed By: #### L [id number] ####[facility] ([facility])[address] [place] [address] MANUAL DIFFERENTIALon 2024 ACANTHOCYTES PRESENCE IN BLOOD BY LIGHT MICROSCOPY Moderate Normal [facility] Comment on above: Performed By: #### L [id number] ####[facility] ([facility])[address] [place] [address] ANISOCYTOSIS PRESENCE IN BLOOD BY LIGHT MICROSCOPY Moderate Normal [facility] Comment on above: Performed By: #### L [id number] ####[facility] ([facility])[address] [place] [address] BASOPHILS (10*3/UL) IN BLOOD BY CALCULATION 0.03 10*3/uL Normal 0.00-0.20 [facility] Comment on above: Performed By: #### L [id number] ####[facility] ([facility])[address] [place] [address] BASOPHILS/100 LEUKOCYTES IN BLOOD BY AUTOMATED COUNT 0.5 % Normal 0.0-1.0 [facility] Comment on above: Performed By: #### L [id number] ####[facility] ([facility])[address] [place] [address] HAMZAH CELLS PRESENCE IN BLOOD BY LIGHT MICROSCOPY Slight Normal [facility] Comment on above: Performed By: #### L [id number] ####[facility] ([facility])[address] [place] [address] EOSINOPHILS (10*3/UL) IN BLOOD BY CALCULATION 0.12 10*3/uL Normal 0.00-0.50 [facility] Comment on above: Performed By: #### L [id number] ####[facility] ([facility])[address] [place] [address] EOSINOPHILS/100 LEUKOCYTES IN BLOOD BY AUTOMATED COUNT 2.0 % Normal 0.0-6.0 [facility] Comment on above: Performed By: #### L [id number] ####[facility] ([facility])[address] [place] [address] IMMATURE GRANULOCYTES (10*3/UL) IN BLOOD BY CALCULATION 0.04 10*3/uL Normal 0.00-0.20 [facility] Comment on above: Performed By: #### L [id number] ####[facility] ([facility])[address] [place] [address] IMMATURE GRANULOCYTES/100 LEUKOCYTES IN BLOOD BY AUTOMATED COUNT 0.7 % Normal 0.0-1.0 [facility] Comment on above: Performed By: #### L [id number] ####[facility] ([facility])[address] [place] [address] LYMPHOCYTES (10*3/UL) IN BLOOD BY CALCULATION 0.80 10*3/uL Low 1.20-4.00 [facility] Comment on above: Performed By: #### L [id number] ####[facility] ([facility])[address] [place] [address] LYMPHOCYTES/100 LEUKOCYTES IN BLOOD BY AUTOMATED COUNT 13.6 % Low 20.0-45.0 [facility] Comment on above: Performed By: #### L [id number] ####[facility] ([facility])[address] [place] [address] MONOCYTES (10*3/UL) IN BLOOD BY CALCUATION 0.68 10*3/uL Normal 0.10-1.00 [facility] Comment on above: Performed By: #### L [id number] ####[facility] ([facility])[address] [place] [address] MONOCYTES/100 LEUKOCYTES IN BLOOD BY AUTOMATED COUNT 11.5 % Normal 5.0-12.0 [facility] Comment on above: Performed By: #### L [id number] ####[facility] ([facility] [place] [address] NEUTROPHILS (10*3/UL) IN BLOOD BY CALCULATION 4.2 10*3/uL Normal 1.6-7.6 [facility] Comment on above: Performed By: #### L [id number] ####[facility] ([facility])[address] [place] [address] NEUTROPHILS/100 LEUKOCYTES IN BLOOD BY AUTOMATED COUNT 71.7 % Normal 40.0-72.0 [facility] Comment on above: Performed By: #### L [id number] ####[facility] ([facility])[address] [place] [address] POIKILOCYTOSIS (PRESENCE) IN BLOOD BY LIGHT MICROSCOPY Marked Normal [facility] Comment on above: Performed By: #### L [id number] ####[facility] ([facility])[address] [place] [address] POLYCHROMASIA IN BLOOD BY LIGHT MICROSCOPY Slight Normal [facility] Comment on above: Performed By: #### L [id number] ####[facility] ([facility])[address] [place] [address] SCHISTOCYTES (PRESENCE) IN BLOOD BY LIGHT MICROSCOPY Moderate Normal [facility] Comment on above: Performed By: #### L [id number] ####[facility] ([facility])[address] [place] [address] PHOSPHORUSon 10-03-2024 Magnesium [Mass/Vol] 2.4 mg/dL Low 2.5-5.0 [facility] Comment on above: Performed By: #### L [id number] ####[facility] ([facility])[address] [place] [address] POCT GLUCOSE METER UNSOLICIT ED RESULTSon 10-03-2024 Glucose [Mass/Vol] 163 mg/dL High 70-105 [facility] Comment on above: Order Comment: Waive d Testing in the ED is performed under the ED CLIA certificate #[id number]. Result Comment: [email or web address] Performed By: #### L [id number] ####[facility] ([facility])[address] [place] [address] Glucose [Mass/Vol] 111 mg/dL High 70-105 [facility] Comment on above: Order Comment: Waive d Testing in the ED is performed under the ED CLIA certificate #[id number]. Result Comment: ezab [email or web address] Performed By: #### L [id number] ####[facility] ([facility])[address] [place] [address] Glucose [Mass/Vol] 100 mg/dL Normal 70-105 [facility] Comment on above: Order Comment: Waive d Testing in the ED is performed under the ED CLIA certificate #[id number]. Result Comment: ezab [email or web address] Performed By: #### L [id number] ####[facility] ([facility])[address] [place] [address] Glucose [Mass/Vol] 114 mg/dL High 70-105 [facility] Comment on above: Order Comment: Waive d Testing in the ED is performed under the ED CLIA certificate #[id number]. Result Comment: [email or web address] Performed By: #### L [id number] ####[facility] ([facility])[address] [place] [address] PROTIME-INRon 10-03-2024 INR IN PPP BY COAGULATION ASSAY 2.14 High 0.90-1.10 [facility] Comment on above: Result Comment: ACCC P [...] CHEST 1995;[id number]. Performed By: #### L [id number] ####[facility] ([facility])[address] [place] [address] PROTHROMBIN TIME (PT) IN PPP BY COAGULATION ASSAY 23.5 Seconds High 12.3-14.8 [facility] Comment on above: Performed By: #### L [id number] ####[facility] ([facility])[address] [place] [address] 30on 10-02-2024 30 Normal [facility] ANTI-XA (HEPARIN LEVEL)on HEPARIN UNFRACTIONATED (U/ML) IN PPP BY CHROMOGENIC METHOD >1.00 Critically high 0.3-0.7 [facility] Comment on above: Result Comment: [place] roxaban and Apixaban will interfere with the anti Xa assay used to monitor UFH and LMWH. Performed By: #### L [id number] ####[facility] ([facility])[address] [place] [address] APTTon 10-02-2024 ACTIVATED PARTIAL THROMBOPLASTIN TIME IN PPP BY COAGULATION ASSAY 86.5 Seconds High 25.0-35.0 [facility] Comment on above: Result Comment: Clin ical significance of the APTT is questionable in the presence of heparin. Performed By: #### L [id number] ####[facility] ([facility])[address] [place] [address] BASIC METABOLIC PANELon 09-16 Anion gap [Moles/Vol] 21 mmol/L High 7-20 [facility] Comment on above: Performed By: #### L [id number] ####[facility] ([facility])[address] [place] [address] Calcium [Mass/Vol] 9.4 mg/dL Normal 8.6-10.3 [facility] Comment on above: Performed By: #### L [id number] ####[facility] ([facility])[address] [place] [address] Chloride [Moles/Vol] 100 mmol/L Normal 98-107 [facility] Comment on above: Performed By: #### L [id number] ####[facility] ([facility])[address] [place] [address] CO2 [Moles/Vol] 27 mmol/L Normal 21-31 [facility] Comment on above: Performed By: #### L [id number] ####[facility] ([facility])[address] [place] [address] Creatinine [Mass/Vol] 3.62 mg/dL High 0.70-1.30 [facility] Comment on above: Performed By: #### L [id number] ####[facility] ([facility])[address] [place] [address] GLOMERULAR FILTRATION RATE ML/MIN/1.73 SQ M.PREDICTED 16.0 mL/min/1.73m*2 Low >60.0 [facility] Comment on above: Result Comment: The [facility]???s estimated glomerular filtration rate (eGFR) will no [...] of individuals. Performed By: #### L [id number] ####[facility] ([facility])[address] [place] [address] Glucose [Mass/Vol] 110 mg/dL High 70-100 [facility] Comment on above: Performed By: #### L [id number] ####[facility] ([facility])[address] [place] [address] Potassium [Moles/Vol] 3.4 mmol/L Low 3.5-5.1 [facility] Comment on above: Performed By: #### L [id number] ####[facility] ([facility])[address] [place] [address] Sodium [Moles/Vol] 145 mmol/L Normal 136-145 [facility] Comment on above: Performed By: #### L [id number] ####[facility] ([facility])[address] [place] [address] Urea nitrogen [Mass/Vol] 71 mg/dL High 7-25 [facility] Comment on above: Performed By: #### L [id number] ####[facility] ([facility])[address] [place] [address] UREA NITROGEN/CREATININE (MASS RATIO) IN SER/PLAS 19.6 Normal [facility] Comment on above: Performed By: #### L [id number] ####[facility] ([facility])[address] [place] [address] Anion gap [Moles/Vol] 22 mmol/L High 7-20 [facility] Comment on above: Performed By: #### L [id number] ####[facility] ([facility])[address] [place] [address] Calcium [Mass/Vol] 9.2 mg/dL Normal 8.6-10.3 [facility] Comment on above: Performed By: #### L [id number] ####[facility] ([facility])[address] [place] [address] Chloride [Moles/Vol] 102 mmol/L Normal 98-107 [facility] Comment on above: Performed By: #### L [id number] ####[facility] ([facility])[address] [place] [address] CO2 [Moles/Vol] 23 mmol/L Normal 21-31 [facility] Comment on above: Performed By: #### L [id number] ####[facility] ([facility])[address] [place] [address] Creatinine [Mass/Vol] 3.65 mg/dL High 0.70-1.30 [facility] Comment on above: Performed By: #### L [id number] ####[facility] ([facility])[address] [place] [address] GLOMERULAR FILTRATION RATE ML/MIN/1.73 SQ M.PREDICTED 15.9 mL/min/1.73m*2 Low >60.0 [facility] Comment on above: Result Comment: The [facility]???s estimated glomerular filtration rate (eGFR) will no [...] of individuals. Performed By: #### L [id number] ####[facility] ([facility])[address] [place] [address] Glucose [Mass/Vol] 119 mg/dL High 70-100 [facility] Comment on above: Performed By: #### L [id number] ####[facility] ([facility])[address] [place] [address] Potassium [Moles/Vol] 4.4 mmol/L Normal 3.5-5.1 [facility] Comment on above: Performed By: #### L [id number] ####[facility] ([facility])[address] [place] [address] Sodium [Moles/Vol] 143 mmol/L Normal 136-145 [facility] Comment on above: Performed By: #### L [id number] ####[facility] ([facility])[address] [place] [address] Urea nitrogen [Mass/Vol] 70 mg/dL High 7-25 [facility] Comment on above: Performed By: #### L [id number] ####[facility] ([facility])[address] [place] [address] UREA NITROGEN/CREATININE (MASS RATIO) IN SER/PLAS 19.2 Normal [facility] Comment on above: Performed By: #### L [id number] ####[facility] ([facility])[address] [place] [address] Anion gap [Moles/Vol] 24 mmol/L High 7-20 [facility] Comment on above: Performed By: #### L [id number] ####[facility] ([facility])[address] [place] [address] Calcium [Mass/Vol] 9.0 mg/dL Normal 8.6-10.3 [facility] Comment on above: Performed By: #### L [id number] ####[facility] ([facility])[address] [place] [address] Chloride [Moles/Vol] 100 mmol/L Normal 98-107 [facility] Comment on above: Performed By: #### L [id number] ####[facility] ([facility])[address] [place] [address] CO2 [Moles/Vol] 24 mmol/L Normal 21-31 [facility] Comment on above: Performed By: #### L [id number] ####[facility] ([facility])[address] [place] [address] Creatinine [Mass/Vol] 3.86 mg/dL High 0.70-1.30 [facility] Comment on above: Performed By: #### L [id number] ####[facility] ([facility] [place] [address] GLOMERULAR FILTRATION RATE ML/MIN/1.73 SQ M.PREDICTED 14.9 mL/min/1.73m*2 Low >60.0 [facility] Comment on above: Result Comment: The [facility]???s estimated glomerular filtration rate (eGFR) will no [...] of individuals. Performed By: #### L [id number] ####[facility] ([facility])[address] [place] [address] Glucose [Mass/Vol] 115 mg/dL High 70-100 [facility] Comment on above: Performed By: #### L [id number] ####[facility] ([facility])[address] [place] [address] Potassium [Moles/Vol] 3.2 mmol/L Low 3.5-5.1 [facility] Comment on above: Performed By: #### L [id number] ####[facility] ([facility])[address] [place] [address] Sodium [Moles/Vol] 145 mmol/L Normal 136-145 [facility] Comment on above: Performed By: #### L [id number] ####[facility] ([facility])[address] [place] [address] Urea nitrogen [Mass/Vol] 72 mg/dL High 7-25 [facility] Comment on above: Performed By: #### L [id number] ####[facility] ([facility])[address] [place] [address] UREA NITROGEN/CREATININE (MASS RATIO) IN SER/PLAS 18.7 Normal [facility] Comment on above: Performed By: #### L [id number] ####[facility] ([facility])[address] [place] [address] CBC WITH AUTO DIFFERENTIALon 10-02-2024 Erythrocyte distribution width (RBC) [Ratio] 23.3 % High 11.5-15.0 [facility] Comment on above: Performed By: #### L [id number] ####[facility] ([facility])[address] [place] [address] ERYTHROCYTE MEAN CORPUSCULAR HEMOGLOBIN CONCENTRATION (G/DL) BY AUTOMATED 30.7 g/dL Low 32.0-35.0 [facility] Comment on above: Performed By: #### L [id number] ####[facility] ([facility])[address] [place] [address] Hematocrit (Bld) [Volume fraction] 37.5 % Low 39.0-55.0 [facility] Comment on above: Performed By: #### L [id number] ####[facility] ([facility])[address] [place], [place] [address] Hemoglobin (Bld) [Mass/Vol] 11.5 g/dL Low 13.0-17.0 [facility] Comment on above: Performed By: #### L [id number] ####[facility] ([facility])[address] [place], [place] [address] MCH (RBC) [Entitic mass] 27.3 pg Normal 27.0-33.0 [facility] Comment on above: Performed By: #### L [id number] ####[facility] ([facility])[address] [place], [place] [address] MCV (RBC) [Entitic vol] 88.9 fL Normal 82.0-98.0 [facility] Comment on above: Performed By: #### L [id number] ####[facility] ([facility])[address] [place], [place] [address] NRBC (PER 100 WBCS) BY AUTOMATED COUNT 0.3 % High 0 [facility] Comment on above: Performed By: #### L [id number] ####[facility] ([facility])[address] [place], [place] [address] PLATELETS (10*3/UL) IN BLOOD AUTOMATED COUNT 162 10*3/uL Normal 150-400 [facility] Comment on above: Performed By: #### L [id number] ####[facility] ([facility])[address] [place] [address] RBC (Bld) [#/Vol] 4.22 10*6/uL Normal 4.20-5.70 [facility] Comment on above: Performed By: #### L [id number] ####[facility] ([facility])[address] [place], [place] [address] WBC (Bld) [#/Vol] 6.99 10*3/uL Normal 4.00-10.60 [facility] Comment on above: Performed By: #### L [id number] ####[facility] ([facility])[address] [place] [address] COMPREHENSIVE METABOLIC PANE [place] 10-02-2024 Albumin [Mass/Vol] 3.9 g/dL Normal 3.5-5.7 [facility] Comment on above: Performed By: #### L [id number] ####[facility] ([facility])[address] [place] [address] ALP [Catalytic activity/Vol] 90 U/L Normal 34-104 [facility] Comment on above: Performed By: #### L [id number] ####[facility] ([facility])[address] [place] [address] ALT [Catalytic activity/Vol] 758 U/L High 7-52 [facility] Comment on above: Performed By: #### L [id number] ####[facility] ([facility])[address] [place] [address] Anion gap [Moles/Vol] 26 mmol/L High 7-20 [facility] Comment on above: Performed By: #### L [id number] ####[facility] ([facility])[address] [place] [address] AST [Catalytic activity/Vol] 546 U/L High 13-39 [facility] Comment on above: Performed By: #### L [id number] ####[facility] ([facility])[address] [place] [address] Bilirubin [Mass/Vol] 1.7 mg/dL High 0.3-1.0 [facility] Comment on above: Performed By: #### L [id number] ####[facility] ([facility])[address] [place] [address] Calcium [Mass/Vol] 9.3 mg/dL Normal 8.6-10.3 [facility] Comment on above: Performed By: #### L [id number] ####[facility] ([facility])[address] [place] [address] Chloride [Moles/Vol] 100 mmol/L Normal 98-107 [facility] Comment on above: Performed By: #### L [id number] ####[facility] ([facility])[address] [place] [address] CO2 [Moles/Vol] 22 mmol/L Normal 21-31 [facility] Comment on above: Performed By: #### L [id number] ####[facility] ([facility])[address] [place] [address] Creatinine [Mass/Vol] 3.85 mg/dL High 0.70-1.30 [facility] Comment on above: Performed By: #### L [id number] ####[facility] ([facility])[address] [place] [address] GLOMERULAR FILTRATION RATE ML/MIN/1.73 SQ M.PREDICTED 14.9 mL/min/1.73m*2 Low >60.0 [facility] Comment on above: Result Comment: The [facility]???s estimated glomerular filtration rate (eGFR) will no [...] of individuals. Performed By: #### L [id number] ####[facility] ([facility])[address] [place] [address] Glucose [Mass/Vol] 95 mg/dL Normal 70-100 [facility] Comment on above: Performed By: #### L [id number] ####[facility] ([facility])[address] [place] [address] Potassium [Moles/Vol] 3.7 mmol/L Normal 3.5-5.1 [facility] Comment on above: Performed By: #### L [id number] ####[facility] ([facility])[address] [place] [address] Protein [Mass/Vol] 6.0 g/dL Normal 6.0-8.3 [facility] Comment on above: Performed By: #### L [id number] ####[facility] ([facility])[address] [place] [address] Sodium [Moles/Vol] 144 mmol/L Normal 136-145 [facility] Comment on above: Performed By: #### L [id number] ####[facility] ([facility])[address] [place] [address] Urea nitrogen [Mass/Vol] 71 mg/dL High 7-25 [facility] Comment on above: Performed By: #### L [id number] ####[facility] ([facility])[address] [place] [address] UREA NITROGEN/CREATININE (MASS RATIO) IN SER/PLAS 18.4 Normal [facility] Comment on above: Performed By: #### L [id number] ####[facility] ([facility])[address] [place] [address] MAGNESIUMon 10-02-2024 Magnesium [Mass/Vol] 2.1 mg/dL Normal 1.9-2.7 [facility] Comment on above: Performed By: #### L [id number] ####[facility] ([facility])[address] [place] [address] MANUAL DIFFERENTIALon 2024 ACANTHOCYTES PRESENCE IN BLOOD BY LIGHT MICROSCOPY Moderate Normal [facility] Comment on above: Performed By: #### L [id number] ####[facility] ([facility])[address] [place] [address] ANISOCYTOSIS PRESENCE IN BLOOD BY LIGHT MICROSCOPY Moderate Normal [facility] Comment on above: Performed By: #### L [id number] ####[facility] ([facility])[address] [place] [address] BASOPHILS (10*3/UL) IN BLOOD BY CALCULATION 0.02 10*3/uL Normal 0.00-0.20 [facility] Comment on above: Performed By: #### L [id number] ####[facility] ([facility])[address] [place] [address] BASOPHILS/100 LEUKOCYTES IN BLOOD BY AUTOMATED COUNT 0.3 % Normal 0.0-1.0 [facility] Comment on above: Performed By: #### L [id number] ####[facility] ([facility])[address] [place] [address] HAMZAH CELLS PRESENCE IN BLOOD BY LIGHT MICROSCOPY Slight Normal [facility] Comment on above: Performed By: #### L [id number] ####[facility] ([facility])[address] [place] [address] EOSINOPHILS (10*3/UL) IN BLOOD BY CALCULATION 0.18 10*3/uL Normal 0.00-0.50 [facility] Comment on above: Performed By: #### L [id number] ####[facility] ([facility])[address] [place] [address] EOSINOPHILS/100 LEUKOCYTES IN BLOOD BY AUTOMATED COUNT 2.6 % Normal 0.0-6.0 [facility] Comment on above: Performed By: #### L [id number] ####[facility] ([facility])[address] [place] [address] IMMATURE GRANULOCYTES (10*3/UL) IN BLOOD BY CALCULATION 0.05 10*3/uL Normal 0.00-0.20 [facility] Comment on above: Performed By: #### L [id number] ####[facility] ([facility])[address] [place] [address] IMMATURE GRANULOCYTES/100 LEUKOCYTES IN BLOOD BY AUTOMATED COUNT 0.7 % Normal 0.0-1.0 [facility] Comment on above: Performed By: #### L [id number] ####[facility] ([facility])[address] [place] [address] LYMPHOCYTES (10*3/UL) IN BLOOD BY CALCULATION 0.51 10*3/uL Low 1.20-4.00 [facility] Comment on above: Performed By: #### L [id number] ####[facility] ([facility])[address] [place] [address] LYMPHOCYTES/100 LEUKOCYTES IN BLOOD BY AUTOMATED COUNT 7.3 % Low 20.0-45.0 [facility] Comment on above: Performed By: #### L [id number] ####[facility] ([facility])[address] [place] [address] MONOCYTES (10*3/UL) IN BLOOD BY CALCUATION 0.50 10*3/uL Normal 0.10-1.00 [facility] Comment on above: Performed By: #### L [id number] ####[facility] ([facility])[address] [place] [address] MONOCYTES/100 LEUKOCYTES IN BLOOD BY AUTOMATED COUNT 7.2 % Normal 5.0-12.0 [facility] Comment on above: Performed By: #### L [id number] ####[facility] ([facility])[address] [place] [address] NEUTROPHILS (10*3/UL) IN BLOOD BY CALCULATION 5.7 10*3/uL Normal 1.6-7.6 [facility] Comment on above: Performed By: #### L [id number] ####[facility] ([facility])[address] [place] [address] NEUTROPHILS/100 LEUKOCYTES IN BLOOD BY AUTOMATED COUNT 81.9 % High 40.0-72.0 [facility] Comment on above: Performed By: #### L [id number] ####[facility] ([facility])[address] [place] [address] POIKILOCYTOSIS (PRESENCE) IN BLOOD BY LIGHT MICROSCOPY Marked Normal [facility] Comment on above: Performed By: #### L [id number] ####[facility] [facility] [place] [address] POLYCHROMASIA IN BLOOD BY LIGHT MICROSCOPY Slight Normal [facility] Comment on above: Performed By: #### L [id number] ####[facility] ([facility])[address] [place] [address] SCHISTOCYTES (PRESENCE) IN BLOOD BY LIGHT MICROSCOPY Moderate Normal [facility] Comment on above: Performed By: #### L [id number] ####[facility] ([facility])[address] [place] [address] TARGET CELLS IN BLOOD BY LIGHT MICROSCOPY Slight Normal [facility] Comment on above: Performed By: #### L [id number] ####[facility] ([facility])[address] [place] [address] PHOSPHORUSon 10-02-2024 Magnesium [Mass/Vol] 4.0 mg/dL Normal 2.5-5.0 [facility] Comment on above: Performed By: #### L [id number] ####[facility] ([facility])[address] [place] [address] PROTIME-INRon 10-02-2024 INR IN PPP BY COAGULATION ASSAY 2.51 High 0.90-1.10 [facility] Comment on above: Result Comment: ACCC P [...] CHEST 1995;[id number]. Performed By: #### L [id number] ####[facility] ([facility])[address] [place] [address] PROTHROMBIN TIME (PT) IN PPP BY COAGULATION ASSAY 26.5 Seconds High 12.3-14.8 [facility] Comment on above: Performed By: #### L [id number] ####[facility] ([facility])[address] [place] [address] 30on 10-01-2024 30 Normal [facility] 30 Normal [facility] ANAon 10-01-2024 DONNIE PATTERN Speckled Normal [facility] Comment on above: Performed By: #### L [id number] ####[facility] ([facility])[address] [place] [address] DONNIE TITER 1:40 Normal <=1:40 [facility] Comment on above: Result Comment: Test performed using EMANUEL IFA DONNIE Hep-2 Test, a pre-standardized assay designed for the qualitative and semi-quantitative detection of antinuclear antibodies. Performed By: #### L [id number] ####[facility] ([facility])[address] [place] [address] ANTI-SMOOTH MUSCLE ANTIBODY TITERon 10-01-2024 SMOOTH MUSCLE AB, IGG TITER <1:20 Normal <1:20 [facility] Comment on above: Result Comment: INTE RPRETIVE INFORMATION: Smooth Muscle Ab, IgG Titer Less than 1:20 ........ Negative - No antibody detected. 1:20 - 1:80 .......... Weak Positive - Suggest repeat in two to three weeks with fresh specimen. 1:160 or greater ...... Positive - Suggestive of autoimmune hepatitis or chronic active hepatitis.Performed By: [id number] [employer] [place], [place] [id number] Director: Leonardo Bustillo MD, PhDCLIA Number: [id number] Performed By: #### L [id number] ####[facility] ([facility])[address] [place] [address] ANTI-XA (HEPARIN LEVEL)on HEPARIN UNFRACTIONATED (U/ML) IN PPP BY CHROMOGENIC METHOD >1.00 Critically high 0.3-0.7 [facility] Comment on above: Result Comment: Padmini roxaban and Apixaban will interfere with the anti Xa assay used to monitor UFH and LMWH. Performed By: #### L [id number] ####[facility] [place] [address] BASIC METABOLIC PANELon 09-16 Anion gap [Moles/Vol] 22 mmol/L High 7-20 [facility] Comment on above: Performed By: #### L [id number] ####[facility] ([facility] [place] [address] Calcium [Mass/Vol] 9.2 mg/dL Normal 8.6-10.3 [facility] Comment on above: Performed By: #### L [id number] ####[facility] ([facility])[address] [place] [address] Chloride [Moles/Vol] 100 mmol/L Normal 98-107 [facility] Comment on above: Performed By: #### L [id number] ####[facility] ([facility])[address] [place] [address] CO2 [Moles/Vol] 26 mmol/L Normal 21-31 [facility] Comment on above: Performed By: #### L [id number] ####[facility] ([facility])[address] [place] [address] Creatinine [Mass/Vol] 4.08 mg/dL High 0.70-1.30 [facility] Comment on above: Performed By: #### L [id number] ####[facility] ([facility])[address] [place] [address] GLOMERULAR FILTRATION RATE ML/MIN/1.73 SQ M.PREDICTED 13.9 mL/min/1.73m*2 Low >60.0 [facility] Comment on above: Result Comment: The [facility]???s estimated glomerular filtration rate (eGFR) will no [...] of individuals. Performed By: #### L [id number] ####[facility] ([facility])[address] [place] [address] Glucose [Mass/Vol] 95 mg/dL Normal 70-100 [facility] Comment on above: Performed By: #### L [id number] ####[facility] ([facility])[address] [place] [address] Potassium [Moles/Vol] 3.3 mmol/L Low 3.5-5.1 [facility] Comment on above: Performed By: #### L [id number] ####[facility] ([facility])[address] [place] [address] Sodium [Moles/Vol] 145 mmol/L Normal 136-145 [facility] Comment on above: Performed By: #### L [id number] ####[facility] ([facility])[address] [place] [address] Urea nitrogen [Mass/Vol] 75 mg/dL High 7-25 [facility] Comment on above: Performed By: #### L [id number] ####[facility] ([facility])[address] [place] [address] UREA NITROGEN/CREATININE (MASS RATIO) IN SER/PLAS 18.4 Normal [facility] Comment on above: Performed By: #### L [id number] ####[facility] ([facility])[address] [place] [address] Anion gap [Moles/Vol] 24 mmol/L High 7-20 [facility] Comment on above: Performed By: #### L [id number] ####[facility] ([facility])[address] [place] [address] Calcium [Mass/Vol] 9.4 mg/dL Normal 8.6-10.3 [facility] Comment on above: Performed By: #### L [id number] ####[facility] ([facility])[address] [place] [address] Chloride [Moles/Vol] 101 mmol/L Normal 98-107 [facility] Comment on above: Performed By: #### L [id number] ####[facility] ([facility])[address] [place] [address] CO2 [Moles/Vol] 25 mmol/L Normal 21-31 [facility] Comment on above: Performed By: #### L [id number] ####[facility] ([facility])[address] [place] [address] Creatinine [Mass/Vol] 4.01 mg/dL High 0.70-1.30 [facility] Comment on above: Performed By: #### L [id number] ####[facility] ([facility])[address] [place] [address] GLOMERULAR FILTRATION RATE ML/MIN/1.73 SQ M.PREDICTED 14.2 mL/min/1.73m*2 Low >60.0 [facility] Comment on above: Result Comment: The [facility]???s estimated glomerular filtration rate (eGFR) will no [...] of individuals. Performed By: #### L [id number] ####[facility] ([facility])[address] [place] [address] Glucose [Mass/Vol] 76 mg/dL Normal 70-100 [facility] Comment on above: Performed By: #### L [id number] ####[facility] ([facility])[address] [place] [address] Potassium [Moles/Vol] 3.5 mmol/L Normal 3.5-5.1 [facility] Comment on above: Performed By: #### L [id number] ####[facility] ([facility])[address] [place] [address] Sodium [Moles/Vol] 146 mmol/L High 136-145 [facility] Comment on above: Performed By: #### L [id number] ####[facility] ([facility])[address] [place] [address] Urea nitrogen [Mass/Vol] 78 mg/dL High 7-25 [facility] Comment on above: Performed By: #### L [id number] ####[facility] ([facility])[address] [place] [address] UREA NITROGEN/CREATININE (MASS RATIO) IN SER/PLAS 19.5 Normal [facility] Comment on above: Performed By: #### L [id number] ####[facility] ([facility])[address] [place] [address] Anion gap [Moles/Vol] 24 mmol/L High 7-20 [facility] Comment on above: Performed By: #### L [id number] ####[facility] ([facility])[address] [place] [address] Calcium [Mass/Vol] 9.2 mg/dL Normal 8.6-10.3 [facility] Comment on above: Performed By: #### L [id number] ####[facility] ([facility])[address] [place] [address] Chloride [Moles/Vol] 103 mmol/L Normal 98-107 [facility] Comment on above: Performed By: #### L [id number] ####[facility] ([facility])[address] [place] [address] CO2 [Moles/Vol] 21 mmol/L Normal 21-31 [facility] Comment on above: Performed By: #### L [id number] ####[facility] ([facility])[address] [place] [address] Creatinine [Mass/Vol] 4.14 mg/dL High 0.70-1.30 [facility] Comment on above: Performed By: #### L [id number] ####[facility] ([facility])[address] [place] [address] GLOMERULAR FILTRATION RATE ML/MIN/1.73 SQ M.PREDICTED 13.7 mL/min/1.73m*2 Low >60.0 [facility] Comment on above: Result Comment: The [facility]???s estimated glomerular filtration rate (eGFR) will no [...] of individuals. Performed By: #### L [id number] ####[facility] ([facility])[address] [place] [address] Glucose [Mass/Vol] 72 mg/dL Normal 70-100 [facility] Comment on above: Performed By: #### L [id number] ####[facility] ([facility])[address] [facility] [address] Potassium [Moles/Vol] 4.0 mmol/L Normal 3.5-5.1 [facility] Comment on above: Performed By: #### L [id number] ####[facility] ([facility])[address] [place] [address] Sodium [Moles/Vol] 144 mmol/L Normal 136-145 [facility] Comment on above: Performed By: #### L [id number] ####[facility] ([facility])[address] [place] [address] Urea nitrogen [Mass/Vol] 78 mg/dL High 7-25 [facility] Comment on above: Performed By: #### L [id number] ####[facility] ([facility])[address] [place] [address] UREA NITROGEN/CREATININE (MASS RATIO) IN SER/PLAS 18.8 Normal [facility] Comment on above: Performed By: #### L [id number] ####[facility] ([facility])[address] [place] [address] Anion gap [Moles/Vol] 20 mmol/L Normal 7-20 [facility] Comment on above: Performed By: #### L [id number] ####[facility] ([facility])[address] [place] [address] Calcium [Mass/Vol] 9.2 mg/dL Normal 8.6-10.3 [facility] Comment on above: Performed By: #### L [id number] ####[facility] ([facility])[address] [place] [address] Chloride [Moles/Vol] 102 mmol/L Normal 98-107 [facility] Comment on above: Performed By: #### L [id number] ####[facility] ([facility])[address] [place] [address] CO2 [Moles/Vol] 25 mmol/L Normal 21-31 [facility] Comment on above: Performed By: #### L [id number] ####[facility] ([facility])[address] [place] [address] Creatinine [Mass/Vol] 4.10 mg/dL High 0.70-1.30 [facility] Comment on above: Performed By: #### L [id number] ####[facility] ([facility])[address] [place] [address] GLOMERULAR FILTRATION RATE ML/MIN/1.73 SQ M.PREDICTED 13.8 mL/min/1.73m*2 Low >60.0 [facility] Comment on above: Result Comment: The [facility]???s estimated glomerular filtration rate (eGFR) will no [...] of individuals. Performed By: #### L [id number] ####[facility] ([facility])[address] [place] [address] Glucose [Mass/Vol] 70 mg/dL Normal 70-100 [facility] Comment on above: Performed By: #### L [id number] ####[facility] ([facility])[address] [place] [address] Potassium [Moles/Vol] 4.1 mmol/L Normal 3.5-5.1 [facility] Comment on above: Performed By: #### L [id number] ####[facility] ([facility])[address] [place] [address] Sodium [Moles/Vol] 143 mmol/L Normal 136-145 [facility] Comment on above: Performed By: #### L [id number] ####[facility] ([facility])[address] [place] [address] Urea nitrogen [Mass/Vol] 77 mg/dL High 7-25 [facility] Comment on above: Performed By: #### L [id number] ####[facility] ([facility])[address] [place] [address] UREA NITROGEN/CREATININE (MASS RATIO) IN SER/PLAS 18.8 Normal [facility] Comment on above: Performed By: #### L [id number] ####[facility] ([facility])[address] [place] [address] CBC WITH AUTO DIFFERENTIALon 10-01-2024 Erythrocyte distribution width (RBC) [Ratio] 23.0 % High 11.5-15.0 [facility] Comment on above: Performed By: #### L [id number] ####[facility] ([facility])[address] [place] [address] ERYTHROCYTE MEAN CORPUSCULAR HEMOGLOBIN CONCENTRATION (G/DL) BY AUTOMATED 30.8 g/dL Low 32.0-35.0 [facility] Comment on above: Performed By: #### L [id number] ####[facility] ([facility])[address] [place] [address] Hematocrit (Bld) [Volume fraction] 34.4 % Low 39.0-55.0 [facility] Comment on above: Performed By: #### L [id number] ####[facility] ([facility])[address] [place], [place] [address] Hemoglobin (Bld) [Mass/Vol] 10.6 g/dL Low 13.0-17.0 [facility] Comment on above: Performed By: #### L [id number] ####[facility] ([facility])[address] [place], [place] [address] MCH (RBC) [Entitic mass] 27.7 pg Normal 27.0-33.0 [facility] Comment on above: Performed By: #### L [id number] ####[facility] ([facility])[address] [place], [place] [address] MCV (RBC) [Entitic vol] 89.8 fL Normal 82.0-98.0 [facility] Comment on above: Performed By: #### L [id number] ####[facility] ([facility])[address] [place], [place] [address] NRBC (PER 100 WBCS) BY AUTOMATED COUNT 0.7 % High 0 [facility] Comment on above: Performed By: #### L [id number] ####[facility] ([facility])[address] [place] [address] PLATELETS (10*3/UL) IN BLOOD AUTOMATED COUNT 159 10*3/uL Normal 150-400 [facility] Comment on above: Performed By: #### L [id number] ####[facility] ([facility])[address] [place], [place] [address] RBC (Bld) [#/Vol] 3.83 10*6/uL Low 4.20-5.70 [facility] Comment on above: Performed By: #### L [id number] ####[facility] ([facility])[address] [place] [address] WBC (Bld) [#/Vol] 7.48 10*3/uL Normal 4.00-10.60 [facility] Comment on above: Performed By: #### L [id number] ####[facility] ([facility])[address] [place] [address] CMV DNA, QUANTITATIVE, NAAT, PLASMAon 10-01-2024 CMV QNT BY NAAT, PLASMA INTERP Detected Abnormal Not Detected [facility] Comment on above: Result Comment: INTE RPRETIVE [...] due tocommutability issues with the standard.Performed By: [employer] [place], [place] [id number] Director: Leonardo Bustillo MD, PhDCLIA Number: [id number] Performed By: #### L [id number] ####[facility] ([facility])[address] [place] [address] CMV QNT BY NAAT, PLASMA IU/ML Not Quantified Normal [facility] Comment on above: Performed By: #### L [id number] ####[facility] ([facility])[address] [place] [address] CMV QNT BY NAAT, PLASMA LOG IU/ML Not Quantified Normal [facility] Comment on above: Result Comment: Not Quantified- CMV DNA was detected, but at a level below 1.54log IU/mL (34.5 IU/mL). Virus detected at a level below 1.54 logIU/mL cannot be accurately quantified by this assay. Performed By: #### L [id number] ####[facility] ([facility])[address] [place] [address] COMPREHENSIVE METABOLIC PANE [place] 10-01-2024 Albumin [Mass/Vol] 3.3 g/dL Low 3.5-5.7 [facility] Comment on above: Performed By: #### L [id number] ####[facility] ([facility])[address] [place] [address] ALP [Catalytic activity/Vol] 73 U/L Normal 34-104 [facility] Comment on above: Performed By: #### L [id number] ####[facility] ([facility])[address] [place] [address] ALT [Catalytic activity/Vol] 1051 U/L High 7-52 [facility] Comment on above: Performed By: #### L [id number] ####[facility] ([facility])[address] [place] [address] Anion gap [Moles/Vol] 22 mmol/L High 7-20 [facility] Comment on above: Performed By: #### L [id number] ####[facility] ([facility])[address] [place] [address] AST [Catalytic activity/Vol] 1190 U/L High 13-39 [facility] Comment on above: Performed By: #### L [id number] ####[facility] ([facility])[address] [place] [address] Bilirubin [Mass/Vol] 1.6 mg/dL High 0.3-1.0 [facility] Comment on above: Performed By: #### L [id number] ####[facility] ([facility])[address] [place] [address] Calcium [Mass/Vol] 9.1 mg/dL Normal 8.6-10.3 [facility] Comment on above: Performed By: #### L [id number] ####[facility] ([facility])[address] [place] [address] Chloride [Moles/Vol] 102 mmol/L Normal 98-107 [facility] Comment on above: Performed By: #### L [id number] ####[facility] ([facility])[address] [place] [address] CO2 [Moles/Vol] 23 mmol/L Normal 21-31 [facility] Comment on above: Performed By: #### L [id number] ####[facility] ([facility] [place] [address] Creatinine [Mass/Vol] 4.14 mg/dL High 0.70-1.30 [facility] Comment on above: Performed By: #### L [id number] ####[facility] ([facility])[address] [place] [address] GLOMERULAR FILTRATION RATE ML/MIN/1.73 SQ M.PREDICTED 13.7 mL/min/1.73m*2 Low >60.0 [facility] Comment on above: Result Comment: The [facility]???s estimated glomerular filtration rate (eGFR) will no [...] of individuals. Performed By: #### L [id number] ####[facility] ([facility])[address] [place] [address] Glucose [Mass/Vol] 59 mg/dL Low 70-100 [facility] Comment on above: Performed By: #### L [id number] ####[facility] ([facility])[address] [place] [address] Potassium [Moles/Vol] 4.3 mmol/L Normal 3.5-5.1 [facility] Comment on above: Performed By: #### L [id number] ####[facility] ([facility])[address] [place] [address] Protein [Mass/Vol] 5.4 g/dL Low 6.0-8.3 [facility] Comment on above: Performed By: #### L [id number] ####[facility] ([facility])[address] [place] [address] Sodium [Moles/Vol] 143 mmol/L Normal 136-145 [facility] Comment on above: Performed By: #### L [id number] ####[facility] ([facility])[address] [place] [address] Urea nitrogen [Mass/Vol] 78 mg/dL High 7-25 [facility] Comment on above: Performed By: #### L [id number] ####[facility] ([facility])[address] [place] [address] UREA NITROGEN/CREATININE (MASS RATIO) IN SER/PLAS 18.8 Normal [facility] Comment on above: Performed By: #### L [id number] ####[facility] ([facility])[address] [place] [address] ANNITA-MALONE VIRUS BY QUANTI TATIVE NAAT, PLASMAon 10-01-2024 EBV QNT BY NAAT, PLASMA INTERP Not detected Normal Not Detected [facility] Comment on above: Result Comment: INTE RPRETIVE [...] due tocommutability issues with the standard.Performed By: [employer] [place], [place] [id number] Director: Leonardo Bustillo MD, PhDCLIA Number: [id number] Performed By: #### L [id number] ####[facility] ([facility])[address] [place] [address] EBV QNT BY NAAT, PLASMA IU/ML Not detected Normal [facility] Comment on above: Performed By: #### L [id number] ####[facility] ([facility])[address] [place] [address] EBV QNT BY NAAT, PLASMA LOG IU/ML Not detected Normal [facility] Comment on above: Performed By: #### L [id number] ####[facility] ([facility])[address] [place] [address] HSV PCRon 10-01-2024 HERPES SIMPLEX VIRUS SUBTYPE SOURCE Serum Normal [facility] Comment on above: Performed By: #### L [id number] ####[facility] ([facility])[address] [place] [address] HSV 1 SUBTYPE BY PCR Not detected Normal [facility] Comment on above: Performed By: #### L [id number] ####[facility] ([facility])[address] [place] [address] HSV 2 SUBTYPE BY PCR Not detected Normal [facility] Comment on above: Result Comment: INTE RPRETIVE INFORMATION: HSV-1 and HSV-2 Subtype by PCRA negative result does not rule out the presence of PCR inhibitorsin the patient specimen or test-specific nucleic acid inconcentrations below the level of detection by this test.This test was developed and its performance characteristicsdetermined by [employer] It has not been cleared orapproved by the [place] Food and Drug Administration. This test wasperformed in a CLIA certified laboratory and is intended forclinical purposes.Performed By: [employer] [place], [place] [id number] Director: Leonardo Bustillo MD, PhDCLIA Number: [id number] Performed By: #### L [id number] ####[facility] ([facility])[address] [place] [address] LACTIC ACID, PLASMAon 2024 LACTATE (MMOL/L) IN SER/PLAS 1.5 mmol/L Normal 0.5-2.2 [facility] Comment on above: Performed By: #### L [id number] ####[facility] ([facility])[address] [place] [address] MAGNESIUMon 10-01-2024 Magnesium [Mass/Vol] 2.2 mg/dL Normal 1.9-2.7 [facility] Comment on above: Performed By: #### L [id number] ####[facility] ([facility] [place] [address] MANUAL DIFFERENTIALon 2024 ACANTHOCYTES PRESENCE IN BLOOD BY LIGHT MICROSCOPY Moderate Normal [facility] Comment on above: Performed By: #### L [id number] ####[facility] ([facility])[address] [place] [address] ANISOCYTOSIS PRESENCE IN BLOOD BY LIGHT MICROSCOPY Moderate Normal [facility] Comment on above: Performed By: #### L [id number] ####[facility] ([facility])[address] [place] [address] BASOPHILS (10*3/UL) IN BLOOD BY CALCULATION 0.02 10*3/uL Normal 0.00-0.20 [facility] Comment on above: Performed By: #### L [id number] ####[facility] ([facility])[address] [place] [address] BASOPHILS/100 LEUKOCYTES IN BLOOD BY AUTOMATED COUNT 0.3 % Normal 0.0-1.0 [facility] Comment on above: Performed By: #### L [id number] ####[facility] ([facility])[address] [place] [address] EOSINOPHILS (10*3/UL) IN BLOOD BY CALCULATION 0.07 10*3/uL Normal 0.00-0.50 [facility] Comment on above: Performed By: #### L [id number] ####[facility] ([facility])[address] [place] [address] EOSINOPHILS/100 LEUKOCYTES IN BLOOD BY AUTOMATED COUNT 0.9 % Normal 0.0-6.0 [facility] Comment on above: Performed By: #### L [id number] ####[facility] ([facility])[address] [place] [address] IMMATURE GRANULOCYTES (10*3/UL) IN BLOOD BY CALCULATION 0.07 10*3/uL Normal 0.00-0.20 [facility] Comment on above: Performed By: #### L [id number] ####[facility] ([facility])[address] [place] [address] IMMATURE GRANULOCYTES/100 LEUKOCYTES IN BLOOD BY AUTOMATED COUNT 0.9 % Normal 0.0-1.0 [facility] Comment on above: Performed By: #### L [id number] ####[facility] ([facility])[address] [place] [address] LYMPHOCYTES (10*3/UL) IN BLOOD BY CALCULATION 0.56 10*3/uL Low 1.20-4.00 [facility] Comment on above: Performed By: #### L [id number] ####[facility] ([facility])[address] [place] [address] LYMPHOCYTES/100 LEUKOCYTES IN BLOOD BY AUTOMATED COUNT 7.5 % Low 20.0-45.0 [facility] Comment on above: Performed By: #### L [id number] ####[facility] ([facility])[address] [place] [address] MONOCYTES (10*3/UL) IN BLOOD BY CALCUATION 0.42 10*3/uL Normal 0.10-1.00 [facility] Comment on above: Performed By: #### L [id number] ####[facility] ([facility])[address] [place] [address] MONOCYTES/100 LEUKOCYTES IN BLOOD BY AUTOMATED COUNT 5.6 % Normal 5.0-12.0 [facility] Comment on above: Performed By: #### L [id number] ####[facility] ([facility])[address] [place] [address] NEUTROPHILS (10*3/UL) IN BLOOD BY CALCULATION 6.3 10*3/uL Normal 1.6-7.6 [facility] Comment on above: Performed By: #### L [id number] ####[facility] ([facility])[address] [place] [address] NEUTROPHILS/100 LEUKOCYTES IN BLOOD BY AUTOMATED COUNT 84.8 % High 40.0-72.0 [facility] Comment on above: Performed By: #### L [id number] ####[facility] ([facility] [place] [address] POIKILOCYTOSIS (PRESENCE) IN BLOOD BY LIGHT MICROSCOPY Moderate Normal [facility] Comment on above: Performed By: #### L [id number] ####[facility] ([facility] [place] [address] POLYCHROMASIA IN BLOOD BY LIGHT MICROSCOPY Slight Normal [facility] Comment on above: Performed By: #### L [id number] ####[facility] ([facility])[address] [place] [address] SCHISTOCYTES (PRESENCE) IN BLOOD BY LIGHT MICROSCOPY Moderate Normal [facility] Comment on above: Performed By: #### L [id number] ####[facility] ([facility])[address] [place] [address] PHOSPHORUSon 10-01-2024 Magnesium [Mass/Vol] 4.5 mg/dL Normal 2.5-5.0 [facility] Comment on above: Performed By: #### L [id number] ####[facility] ([facility])[address] [place] [address] POCT GLUCOSE METER UNSOLICIT ED RESULTSon 10-01-2024 Glucose [Mass/Vol] 83 mg/dL Normal 70-105 [facility] Comment on above: Order Comment: Waive d Testing in the ED is performed under the ED CLIA certificate #[id number]. Result Comment: [email or web address] Performed By: #### L [id number] ####[facility] ([facility])[address] [place] [address] PROTIME-INRon 10-01-2024 INR IN PPP BY COAGULATION ASSAY 3.55 High 0.90-1.10 [facility] Comment on above: Result Comment: ACCC P [...] CHEST 1995;[id number]. Performed By: #### L [id number] ####[facility] ([facility])[address] [place] [address] PROTHROMBIN TIME (PT) IN PPP BY COAGULATION ASSAY 34.4 Seconds High 12.3-14.8 [facility] Comment on above: Performed By: #### L [id number] ####[facility] ([facility])[address] [place] [address] SODIUM, URINE, RANDOMon 09-16 Sodium (U) [Moles/Vol] 103 mmol/L Normal [facility] Comment on above: Performed By: #### L [id number] ####[facility] ([facility])[address] [place] [address] 30on 09-30-2024 30 Normal [facility] ACETAMINOPHEN LEVELon 2024 ACETAMINOPHEN (UG/ML) IN SER/PLAS <10 Low 10-30 [facility] Comment on above: Performed By: #### L [id number] ####[facility] ([facility])[address] [place] [address] AFB CULTUREon 09-30-2024 AFB CULTURE No growth at 42 days Normal [facility] Comment on above: Performed By: #### L [id number] ####[facility] ([facility])[address] [place] [address] AFB STAIN No acid fast bacilli seen Normal [facility] Comment on above: Performed By: #### L [id number] ####[facility] ([facility])[address] [place] [address] ALBUMIN, BODY FLUIDon 2024 ALBUMIN (G/DL) IN BODY FLUID 2.0 g/dL Normal [facility] Comment on above: Result Comment: The reference range and other method performance specifications have not been established for this test in fluids. the test result should be integrated into the clinical context for interpretation. Performed By: #### L [id number] ####[facility] ([facility])[address] [place] [address] AMMONIAon 09-30-2024 AMMONIA (UMOL/L) IN PLASMA 76 umol/L High 18-72 [facility] Comment on above: Performed By: #### L [id number] ####[facility] ([facility])[address] [place] [address] APTTon 09-30-2024 ACTIVATED PARTIAL THROMBOPLASTIN TIME IN PPP BY COAGULATION ASSAY 96.4 Seconds High 25.0-35.0 [facility] Comment on above: Order Comment: Timed lab draw, please do not draw early. Thank you. Result Comment: Clin ical significance of the APTT is questionable in the presence of heparin. Performed By: #### L [id number] ####[facility] ([facility])[address] [place] [address] ACTIVATED PARTIAL THROMBOPLASTIN TIME IN PPP BY COAGULATION ASSAY 91.6 Seconds High 25.0-35.0 [facility] Comment on above: Result Comment: Clin ical significance of the APTT is questionable in the presence of heparin. Performed By: #### L [id number] ####[facility] ([facility])[address] [place] [address] BASIC METABOLIC PANELon 09-16 Anion gap [Moles/Vol] 23 mmol/L High 7-20 [facility] Comment on above: Performed By: #### L [id number] ####[facility] ([facility])[address] [place] [address] Calcium [Mass/Vol] 9.4 mg/dL Normal 8.6-10.3 [facility] Comment on above: Performed By: #### L [id number] ####[facility] ([facility])[address] [place] [address] Chloride [Moles/Vol] 102 mmol/L Normal 98-107 [facility] Comment on above: Performed By: #### L [id number] ####[facility] ([facility])[address] [place] [address] CO2 [Moles/Vol] 21 mmol/L Normal 21-31 [facility] Comment on above: Performed By: #### L [id number] ####[facility] ([facility])[address] [place] [address] Creatinine [Mass/Vol] 4.33 mg/dL High 0.70-1.30 [facility] Comment on above: Performed By: #### L [id number] ####[facility] ([facility])[address] [place] [address] GLOMERULAR FILTRATION RATE ML/MIN/1.73 SQ M.PREDICTED 12.9 mL/min/1.73m*2 Low >60.0 [facility] Comment on above: Result Comment: The [facility]???s estimated glomerular filtration rate (eGFR) will no [...] of individuals. Performed By: #### L [id number] ####[facility] ([facility])[address] [place] [address] Glucose [Mass/Vol] 79 mg/dL Normal 70-100 [facility] Comment on above: Performed By: #### L [id number] ####[facility] ([facility])[address] [place] [address] Potassium [Moles/Vol] 4.6 mmol/L Normal 3.5-5.1 [facility] Comment on above: Performed By: #### L [id number] ####[facility] ([facility])[address] [place] [address] Sodium [Moles/Vol] 141 mmol/L Normal 136-145 [facility] Comment on above: Performed By: #### L [id number] ####[facility] ([facility])[address] [place] [address] Urea nitrogen [Mass/Vol] 78 mg/dL High 7-25 [facility] Comment on above: Performed By: #### L [id number] ####[facility] ([facility])[address] [place] [address] UREA NITROGEN/CREATININE (MASS RATIO) IN SER/PLAS 18.0 Normal [facility] Comment on above: Performed By: #### L [id number] ####[facility] ([facility])[address] [place] [address] Anion gap [Moles/Vol] 21 mmol/L High 7-20 [facility] Comment on above: Performed By: #### L [id number] ####[facility] ([facility])[address] [place] [address] Calcium [Mass/Vol] 9.1 mg/dL Normal 8.6-10.3 [facility] Comment on above: Performed By: #### L [id number] ####[facility] ([facility])[address] [place] [address] Chloride [Moles/Vol] 100 mmol/L Normal 98-107 [facility] Comment on above: Performed By: #### L [id number] ####[facility] ([facility])[address] [place] [address] CO2 [Moles/Vol] 23 mmol/L Normal 21-31 [facility] Comment on above: Performed By: #### L [id number] ####[facility] ([facility])[address] [place] [address] Creatinine [Mass/Vol] 4.29 mg/dL High 0.70-1.30 [facility] Comment on above: Performed By: #### L [id number] ####[facility] ([facility])[address] [place] [address] GLOMERULAR FILTRATION RATE ML/MIN/1.73 SQ M.PREDICTED 13.1 mL/min/1.73m*2 Low >60.0 [facility] Comment on above: Result Comment: The [facility]???s estimated glomerular filtration rate (eGFR) will no [...] of individuals. Performed By: #### L [id number] ####[facility] ([facility])[address] [place] [address] Glucose [Mass/Vol] 86 mg/dL Normal 70-100 [facility] Comment on above: Performed By: #### L [id number] ####[facility] ([facility])[address] [place] [address] Potassium [Moles/Vol] 4.5 mmol/L Normal 3.5-5.1 [facility] Comment on above: Performed By: #### L [id number] ####[facility] ([facility])[address] [place] [address] Sodium [Moles/Vol] 139 mmol/L Normal 136-145 [facility] Comment on above: Performed By: #### L [id number] ####[facility] ([facility])[address] [place] [address] Urea nitrogen [Mass/Vol] 76 mg/dL High 7-25 [facility] Comment on above: Performed By: #### L [id number] ####[facility] ([facility])[address] [place] [address] UREA NITROGEN/CREATININE (MASS RATIO) IN SER/PLAS 17.7 Normal [facility] Comment on above: Performed By: #### L [id number] ####[facility] ([facility])[address] [place] [address] Anion gap [Moles/Vol] 21 mmol/L High 7-20 [facility] Comment on above: Performed By: #### L [id number] ####[facility] ([facility])[address] [place] [address] Calcium [Mass/Vol] 9.5 mg/dL Normal 8.6-10.3 [facility] Comment on above: Performed By: #### L [id number] ####[facility] ([facility])[address] [place] [address] Chloride [Moles/Vol] 101 mmol/L Normal 98-107 [facility] Comment on above: Performed By: #### L [id number] ####[facility] ([facility])[address] [place] [address] CO2 [Moles/Vol] 23 mmol/L Normal 21-31 [facility] Comment on above: Performed By: #### L [id number] ####[facility] ([facility])[address] [place] [address] Creatinine [Mass/Vol] 4.31 mg/dL High 0.70-1.30 [facility] Comment on above: Performed By: #### L [id number] ####[facility] ([facility])[address] [place] [address] GLOMERULAR FILTRATION RATE ML/MIN/1.73 SQ M.PREDICTED 13.0 mL/min/1.73m*2 Low >60.0 [facility] Comment on above: Result Comment: The [facility]???s estimated glomerular filtration rate (eGFR) will no [...] of individuals. Performed By: #### L [id number] ####[facility] ([facility])[address] [place] [address] Glucose [Mass/Vol] 69 mg/dL Low 70-100 [facility] Comment on above: Performed By: #### L [id number] ####[facility] ([facility])[address] [place] [address] Potassium [Moles/Vol] 4.9 mmol/L Normal 3.5-5.1 [facility] Comment on above: Performed By: #### L [id number] ####[facility] ([facility])[address] [place] [address] Sodium [Moles/Vol] 140 mmol/L Normal 136-145 [facility] Comment on above: Performed By: #### L [id number] ####[facility] ([facility])[address] [place] [address] Urea nitrogen [Mass/Vol] 76 mg/dL High 7-25 [facility] Comment on above: Performed By: #### L [id number] ####[facility] ([facility])[address] [place] [address] UREA NITROGEN/CREATININE (MASS RATIO) IN SER/PLAS 17.6 Normal [facility] Comment on above: Performed By: #### L [id number] ####[facility] ([facility])[address] [place] [address] Anion gap [Moles/Vol] 18 mmol/L Normal 7-20 [facility] Comment on above: Performed By: #### L [id number] ####[facility] ([facility])[address] [place] [address] Calcium [Mass/Vol] 9.9 mg/dL Normal 8.6-10.3 [facility] Comment on above: Performed By: #### L [id number] ####[facility] ([facility])[address] [place] [address] Chloride [Moles/Vol] 101 mmol/L Normal 98-107 [facility] Comment on above: Performed By: #### L [id number] ####[facility] ([facility])[address] [place] [address] CO2 [Moles/Vol] 23 mmol/L Normal 21-31 [facility] Comment on above: Performed By: #### L [id number] ####[facility] ([facility])[address] [place] [address] Creatinine [Mass/Vol] 4.28 mg/dL High 0.70-1.30 [facility] Comment on above: Performed By: #### L [id number] ####[facility] ([facility])[address] [place] [address] GLOMERULAR FILTRATION RATE ML/MIN/1.73 SQ M.PREDICTED 13.1 mL/min/1.73m*2 Low >60.0 [facility] Comment on above: Result Comment: The [facility]???s estimated glomerular filtration rate (eGFR) will no [...] of individuals. Performed By: #### L [id number] ####[facility] ([facility])[address] [place] [address] Glucose [Mass/Vol] 78 mg/dL Normal 70-100 [facility] Comment on above: Performed By: #### L [id number] ####[facility] ([facility])[address] [place] [address] Potassium [Moles/Vol] 5.6 mmol/L High 3.5-5.1 [facility] Comment on above: Performed By: #### L [id number] ####[facility] ([facility])[address] [place] [address] Sodium [Moles/Vol] 136 mmol/L Normal 136-145 [facility] Comment on above: Performed By: #### L [id number] ####[facility] ([facility])[address] [place] [address] Urea nitrogen [Mass/Vol] 75 mg/dL High 7-25 [facility] Comment on above: Performed By: #### L [id number] ####[facility] ([facility])[address] [place] [address] UREA NITROGEN/CREATININE (MASS RATIO) IN SER/PLAS 17.5 Normal [facility] Comment on above: Performed By: #### L [id number] ####[facility] ([facility])[address] [place] [address] Anion gap [Moles/Vol] 17 mmol/L Normal 7-20 [facility] Comment on above: Performed By: #### L [id number] ####[facility] ([facility])[address] [place] [address] Calcium [Mass/Vol] 9.8 mg/dL Normal 8.6-10.3 [facility] Comment on above: Performed By: #### L [id number] ####[facility] ([facility])[address] [place] [address] Chloride [Moles/Vol] 104 mmol/L Normal 98-107 [facility] Comment on above: Performed By: #### L [id number] ####[facility] ([facility])[address] [place] [address] CO2 [Moles/Vol] 20 mmol/L Low 21-31 [facility] Comment on above: Performed By: #### L [id number] ####[facility] ([facility])[address] [place] [address] Creatinine [Mass/Vol] 4.15 mg/dL High 0.70-1.30 [facility] Comment on above: Performed By: #### L [id number] ####[facility] ([facility])[address] [place] [address] GLOMERULAR FILTRATION RATE ML/MIN/1.73 SQ M.PREDICTED 13.6 mL/min/1.73m*2 Low >60.0 [facility] Comment on above: Result Comment: The [facility]???s estimated glomerular filtration rate (eGFR) will no [...] of individuals. Performed By: #### L [id number] ####[facility] ([facility])[address] [place] [address] Glucose [Mass/Vol] 81 mg/dL Normal 70-100 [facility] Comment on above: Performed By: #### L [id number] ####[facility] ([facility])[address] [place] [address] Potassium [Moles/Vol] 5.6 mmol/L High 3.5-5.1 [facility] Comment on above: Performed By: #### L [id number] ####[facility] ([facility])[address] [place] [address] Sodium [Moles/Vol] 135 mmol/L Low 136-145 [facility] Comment on above: Performed By: #### L [id number] ####[facility] ([facility])[address] [place] [address] Urea nitrogen [Mass/Vol] 73 mg/dL High 7-25 [facility] Comment on above: Performed By: #### L [id number] ####[facility] ([facility])[address] [place] [address] UREA NITROGEN/CREATININE (MASS RATIO) IN SER/PLAS 17.6 Normal [facility] Comment on above: Performed By: #### L [id number] ####[facility] ([facility])[address] [place] [address] BODY FLUID CELL DIFFERENTIAL on 09-30-2024 BASOPHILS TOTAL PER COUNTED LEUKOCYTES IN BODY FLUID BY MANUAL COUNT [facility] Comment on above: Order Comment: Diffe rential performed on cytospin Performed By: #### L [id number] ####[facility] ([facility])[address] [place] [address] CELLS COUNTED TOTAL (#) IN BODY FLUID 100 [facility] Comment on above: Order Comment: Diffe rential performed on cytospin Performed By: #### L [id number] ####[facility] ([facility])[address] [place] [address] EOSINOPHILS TOTAL PER COUNTED LEUKOCYTES IN BODY FLUID BY MANUAL COUNT [facility] Comment on above: Order Comment: Diffe rential performed on cytospin Performed By: #### L [id number] ####[facility] ([facility])[address] [place] [address] LYMPHOCYTES TOTAL PER COUNTED LEUKOCYTES IN BODY FLUID BY MANUAL COUNT 37 [facility] Comment on above: Order Comment: Diffe rential performed on cytospin Performed By: #### L [id number] ####[facility] ([facility])[address] [place] [address] MESOTHELIAL CELLS TOTAL PER COUNTED LEUKOCYTES IN BODY FLUID BY MANUAL COUN [facility] Comment on above: Order Comment: Diffe rential performed on cytospin Performed By: #### L [id number] ####[facility] ([facility])[address] [place] [address] MONOCYTES+MACROPHAG ES TOTAL PER COUNTED LEUKOCYTES IN BODY FLUID BY MANUAL 23 [facility] Comment on above: Order Comment: Diffe rential performed on cytospin Performed By: #### L [id number] ####[facility] ([facility])[address] [place] [address] NEUTROPHILS TOTAL PER COUNTED LEUKOCYTES IN BODY FLUID BY MANUAL COUNT 40 [facility] Comment on above: Order Comment: Diffe rential performed on cytospin Performed By: #### L [id number] ####[facility] ([facility])[address] [place] [address] OTHER CELLS BODY FLUID (MANUAL) Normal [facility] Comment on above: Order Comment: Diffe rential performed on cytospin Performed By: #### L [id number] ####[facility] ([facility])[address] [place] [address] BODY FLUID CULTUREon 025 Bacteria identified Cx Nom (Unsp spec) No growth at 5 days Normal [facility] Comment on above: Performed By: #### L [id number] ####[facility] ([facility] [place] [address] GRAM STAIN RESULT Normal [facility] Comment on above: Result Comment: Poly morphonuclear leukocytesNo organisms seenCytocentrifuge sample Performed By: #### L [id number] ####[facility] ([facility])[address] [place] [address] CBC WITH AUTO DIFFERENTIALon 09-30-2024 Erythrocyte distribution width (RBC) [Ratio] 23.0 % High 11.5-15.0 [facility] Comment on above: Performed By: #### L [id number] ####[facility] ([facility])[address] [place] [address] ERYTHROCYTE MEAN CORPUSCULAR HEMOGLOBIN CONCENTRATION (G/DL) BY AUTOMATED 28.5 g/dL Low 32.0-35.0 [facility] Comment on above: Performed By: #### L [id number] ####[facility] ([facility])[address] [place] [address] Hematocrit (Bld) [Volume fraction] 35.5 % Low 39.0-55.0 [facility] Comment on above: Performed By: #### L [id number] ####[facility] ([facility])[address] [place] [address] Hemoglobin (Bld) [Mass/Vol] 10.1 g/dL Low 13.0-17.0 [facility] Comment on above: Performed By: #### L [id number] ####[facility] ([facility] [place] [address] MCH (RBC) [Entitic mass] 27.5 pg Normal 27.0-33.0 [facility] Comment on above: Performed By: #### L [id number] ####[facility] ([facility])[address] [place] [address] MCV (RBC) [Entitic vol] 96.7 fL Normal 82.0-98.0 [facility] Comment on above: Performed By: #### L [id number] ####[facility] ([facility])[address] [place] [address] NRBC (PER 100 WBCS) BY AUTOMATED COUNT 0.6 % High 0 [facility] Comment on above: Performed By: #### L [id number] ####[facility] ([facility])[address] [place] [address] PLATELETS (10*3/UL) IN BLOOD AUTOMATED COUNT 185 10*3/uL Normal 150-400 [facility] Comment on above: Performed By: #### L [id number] ####[facility] ([facility])[address] [place] [address] RBC (Bld) [#/Vol] 3.67 10*6/uL Low 4.20-5.70 [facility] Comment on above: Performed By: #### L [id number] ####[facility] ([facility])[address] [place] [address] WBC (Bld) [#/Vol] 10.01 10*3/uL Normal 4.00-10.60 [facility] Comment on above: Performed By: #### L [id number] ####[facility] ([facility] [place] [address] COMPREHENSIVE METABOLIC PANE Aldo 09-30-2024 Albumin [Mass/Vol] 3.6 g/dL Normal 3.5-5.7 [facility] Comment on above: Performed By: #### L [id number] ####[facility] ([facility])[address] [place] [address] ALP [Catalytic activity/Vol] 80 U/L Normal 34-104 [facility] Comment on above: Performed By: #### L [id number] ####[facility] ([facility])[address] [place] [address] ALT [Catalytic activity/Vol] 1499 U/L High 7-52 [facility] Comment on above: Performed By: #### L [id number] ####[facility] ([facility])[address] [place] [address] Anion gap [Moles/Vol] 16 mmol/L Normal 7-20 [facility] Comment on above: Performed By: #### L [id number] ####[facility] ([facility])[address] [place] [address] AST [Catalytic activity/Vol] 2953 U/L High 13-39 [facility] Comment on above: Performed By: #### L [id number] ####[facility] ([facility])[address] [place] [address] Bilirubin [Mass/Vol] 1.6 mg/dL High 0.3-1.0 [facility] Comment on above: Performed By: #### L [id number] ####[facility] ([facility])[address] [place] [address] Calcium [Mass/Vol] 10.0 mg/dL Normal 8.6-10.3 [facility] Comment on above: Performed By: #### L [id number] ####[facility] ([facility])[address] [place] [address] Chloride [Moles/Vol] 103 mmol/L Normal 98-107 [facility] Comment on above: Performed By: #### L [id number] ####[facility] ([facility])[address] [place] [address] CO2 [Moles/Vol] 22 mmol/L Normal 21-31 [facility] Comment on above: Performed By: #### L [id number] ####[facility] [place] [address] Creatinine [Mass/Vol] 4.08 mg/dL High 0.70-1.30 [facility] Comment on above: Performed By: #### L [id number] ####[facility] ([facility])[address] [place] [address] GLOMERULAR FILTRATION RATE ML/MIN/1.73 SQ M.PREDICTED 13.9 mL/min/1.73m*2 Low >60.0 [facility] Comment on above: Result Comment: The [facility]???s estimated glomerular filtration rate (eGFR) will no [...] of individuals. Performed By: #### L [id number] ####[facility] ([facility])[address] [place] [address] Glucose [Mass/Vol] 94 mg/dL Normal 70-100 [facility] Comment on above: Performed By: #### L [id number] ####[facility] ([facility])[address] [place] [address] Potassium [Moles/Vol] 5.7 mmol/L High 3.5-5.1 [facility] Comment on above: Performed By: #### L [id number] ####[facility] ([facility])[address] [place] [address] Protein [Mass/Vol] 6.2 g/dL Normal 6.0-8.3 [facility] Comment on above: Performed By: #### L [id number] ####[facility] ([facility])[address] [place] [address] Sodium [Moles/Vol] 135 mmol/L Low 136-145 [facility] Comment on above: Performed By: #### L [id number] ####[facility] ([facility])[address] [place] [address] Urea nitrogen [Mass/Vol] 78 mg/dL High 7-25 [facility] Comment on above: Performed By: #### L [id number] ####[facility] ([facility])[address] [place] [address] UREA NITROGEN/CREATININE (MASS RATIO) IN SER/PLAS 19.1 Normal [facility] Comment on above: Performed By: #### L [id number] ####[facility] ([facility])[address] [place] [address] CONSULTon 09-30-2024 CONSULT Normal [facility] CONSULT Normal [facility] CONSULT Normal [facility] CONSULT Normal [facility] FUNGAL CULTUREon 09-30-2024 FUNGAL SMEAR No yeast or fungal elements seen Normal [facility] Comment on above: Performed By: #### L [id number] ####[facility] ([facility])[address] [facility] [place] [address] GLUCOSE, BODY FLUIDon 2024 GLUCOSE (MG/DL) IN BODY FLUID 95 mg/dL Normal [facility] Comment on above: Result Comment: The reference range and other method performance specifications have not been established for this test in fluids. the test result should be integrated into the clinical context for interpretation. Performed By: #### L [id number] ####[facility] ([facility])[address] [facility] [address] HEPATITIS PANEL, ACUTEon HEPATITIS A VIRUS IGM AB PRESENCE IN SER/PLAS Non-Reactive Normal Nonreactive [facility] Comment on above: Performed By: #### L [id number] ####[facility] ([facility])[address] [facility] [place] [address] HEPATITIS B VIRUS CORE AB (PRESENCE) IN SER/PLAS BY IMM Non-Reactive Normal Nonreactive [facility] Comment on above: Performed By: #### L [id number] ####[facility] ([facility])[address] [place] [address] HEPATITIS B VIRUS SURFACE AG PRESENCE IN SERUM Non-Reactive Normal Nonreactive [facility] Comment on above: Performed By: #### L [id number] ####[facility] ([facility])[address] [place] [address] HEPATITIS C VIRUS AB PRESENCE IN SERUM Non-Reactive Normal Nonreactive [facility] Comment on above: Performed By: #### L [id number] ####[facility] ([facility])[address] [place] [address] HPon 09-30-2024 HP Normal [facility] LACTATE DEHYDROGENASEon 09-16 LACTATE DEHYDROGENASE (U/L) IN SER/PLAS BY LAC->PYR RXN 1762 U/L High 140-271 [facility] Comment on above: Performed By: #### L [id number] ####[facility] ([facility])[address] [place] [address] LACTATE DEHYDROGENASE, BODY FLUIDon 09-30-2024 LACTATE DEHYDROGENASE (U/L) IN BODY FLUID BY LAC->PYR 244 U/L Normal [facility] Comment on above: Result Comment: The reference range and other method performance specifications have not been established for this test in fluids. the test result should be integrated into the clinical context for interpretation. Performed By: #### L [id number] ####[facility] ([facility])[address] [place] [address] LACTIC ACID WITH 4 HOUR REFL EXon 09-30-2024 LACTATE (MMOL/L) IN SER/PLAS 2.1 mmol/L Normal 0.5-2.2 [facility] Comment on above: Performed By: #### L [id number] ####[facility] ([facility])[address] [place] [address] LACTATE (MMOL/L) IN SER/PLAS 2.5 mmol/L High 0.5-2.2 [facility] Comment on above: Performed By: #### L [id number] ####[facility] ([facility])[address] [place] [address] MAGNESIUMon 09-30-2024 Magnesium [Mass/Vol] 2.2 mg/dL Normal 1.9-2.7 [facility] Comment on above: Performed By: #### L [id number] ####[facility] ([facility])[address] [place] [address] MANUAL DIFFERENTIALon 2024 ACANTHOCYTES PRESENCE IN BLOOD BY LIGHT MICROSCOPY Slight Normal [facility] Comment on above: Performed By: #### L [id number] ####[facility] ([facility])[address] [place] [address] ANISOCYTOSIS PRESENCE IN BLOOD BY LIGHT MICROSCOPY Marked Normal [facility] Comment on above: Performed By: #### L [id number] ####[facility] ([facility])[address] [place] [address] BASOPHILS (10*3/UL) IN BLOOD BY CALCULATION 0.03 10*3/uL Normal 0.00-0.20 [facility] Comment on above: Performed By: #### L [id number] ####[facility] ([facility])[address] [place] [address] BASOPHILS/100 LEUKOCYTES IN BLOOD BY AUTOMATED COUNT 0.3 % Normal 0.0-1.0 [facility] Comment on above: Performed By: #### L [id number] ####[facility] ([facility])[address] [place] [address] HAMZAH CELLS PRESENCE IN BLOOD BY LIGHT MICROSCOPY Slight Normal [facility] Comment on above: Performed By: #### L [id number] ####[facility] ([facility])[address] [place] [address] ELLIPTOCYTES IN BLOOD BY LIGHT MICROSCOPY Slight Normal [facility] Comment on above: Performed By: #### L [id number] ####[facility] ([facility])[address] [place] [address] EOSINOPHILS (10*3/UL) IN BLOOD BY CALCULATION 0.00 10*3/uL Normal 0.00-0.50 [facility] Comment on above: Performed By: #### L [id number] ####[facility] ([facility])[address] [place] [address] EOSINOPHILS/100 LEUKOCYTES IN BLOOD BY AUTOMATED COUNT 0.0 % Normal 0.0-6.0 [facility] Comment on above: Performed By: #### L [id number] ####[facility] ([facility])[address] [place] [address] HYPOCHROMIA (PRESENCE) IN BLOOD BY LIGHT MICROSCOPY Slight Normal [facility] Comment on above: Performed By: #### L [id number] ####[facility] ([facility])[address] [place] [address] IMMATURE GRANULOCYTES (10*3/UL) IN BLOOD BY CALCULATION 0.09 10*3/uL Normal 0.00-0.20 [facility] Comment on above: Performed By: #### L [id number] ####[facility] ([facility])[address] [place] [address] IMMATURE GRANULOCYTES/100 LEUKOCYTES IN BLOOD BY AUTOMATED COUNT 0.9 % Normal 0.0-1.0 [facility] Comment on above: Performed By: #### L [id number] ####[facility] ([facility])[address] [place] [address] LYMPHOCYTES (10*3/UL) IN BLOOD BY CALCULATION 0.59 10*3/uL Low 1.20-4.00 [facility] Comment on above: Performed By: #### L [id number] ####[facility] ([facility])[address] [place] [address] LYMPHOCYTES/100 LEUKOCYTES IN BLOOD BY AUTOMATED COUNT 5.9 % Low 20.0-45.0 [facility] Comment on above: Performed By: #### L [id number] ####[facility] ([facility])[address] [place] [address] MACROCYTES (PRESENCE) IN BLOOD BY LIGHT MICROSCOPY Slight Normal [facility] Comment on above: Performed By: #### L [id number] ####[facility] ([facility])[address] [place] [address] MONOCYTES (10*3/UL) IN BLOOD BY CALCUATION 0.64 10*3/uL Normal 0.10-1.00 [facility] Comment on above: Performed By: #### L [id number] ####[facility] ([facility])[address] [place] [address] MONOCYTES/100 LEUKOCYTES IN BLOOD BY AUTOMATED COUNT 6.4 % Normal 5.0-12.0 [facility] Comment on above: Performed By: #### L [id number] ####[facility] ([facility])[address] [place] [address] NEUTROPHILS (10*3/UL) IN BLOOD BY CALCULATION 8.7 10*3/uL High 1.6-7.6 [facility] Comment on above: Performed By: #### L [id number] ####[facility] ([facility])[address] [place] [address] NEUTROPHILS/100 LEUKOCYTES IN BLOOD BY AUTOMATED COUNT 86.5 % High 40.0-72.0 [facility] Comment on above: Performed By: #### L [id number] ####[facility] ([facility])[address] [place] [address] OVALOCYTES PRESENCE IN BLOOD BY LIGHT MICROSCOPY Slight Normal [facility] Comment on above: Performed By: #### L [id number] ####[facility] ([facility])[address] [place] [address] POIKILOCYTOSIS (PRESENCE) IN BLOOD BY LIGHT MICROSCOPY Marked Normal [facility] Comment on above: Performed By: #### L [id number] ####[facility] ([facility])[address] [place] [address] POLYCHROMASIA IN BLOOD BY LIGHT MICROSCOPY Slight Normal [facility] Comment on above: Performed By: #### L [id number] ####[facility] ([facility])[address] [place] [address] SCHISTOCYTES (PRESENCE) IN BLOOD BY LIGHT MICROSCOPY Moderate Normal [facility] Comment on above: Performed By: #### L [id number] ####[facility] ([facility])[address] [place] [address] NON-PANTRY COOK CYTOLOGY - CELLULAR EXAMon 09-30-2024 LAB AP CASE REPORT Normal [facility] Comment on above: Result Comment: Non- gynecologic Cytology Case: [id number] Provider: Hari Cabrera MD Collected: 09/30/2024 1412Ordering Location: [facility] Received: 10/01/2024 0733 CarePathologist: PAVEL Levinepecimen: Peritoneal fluid Performed By: #### L [id number] ####[facility] ([facility])[address] [place] [address] LAB AP CLINICAL INFORMATION Normal [facility] Comment on above: Result Comment: Post -Op DiagnosesNo Dx found. Performed By: #### L [id number] ####[facility] ([facility])[address] [place] [address] LAB AP GROSS DESCRIPTION 6 mL hazy, yellow fluid. Normal [facility] Comment on above: Performed By: #### L [id number] ####[facility] ([facility])[address] [place] [address] LAB AP REPORT FINAL DIAGNOSIS NARRATIVE Normal [facility] Comment on above: Result Comment: A. P eritoneal fluid: - Negative for malignancy. Performed By: #### L [id number] ####[facility] ([facility])[address] [place] [address] PATHOLOGY REVIEWon PATHOLOGY REVIEW Reviewed. Normal [facility] Comment on above: Result Comment: Elec tronically signed by Leeann Deras MD on 10/01/24 at 2:05 PM. Performed By: #### L [id number] ####[facility] ([facility])[address] [place] [address] PHOSPHORUSon 09-30-2024 Magnesium [Mass/Vol] 5.1 mg/dL High 2.5-5.0 [facility] Comment on above: Performed By: #### L [id number] ####[facility] ([facility])[address] [facility] [place] [address] PROTEIN, BODY FLUIDon 2024 Protein (Body fld) [Mass/Vol] 3.4 g/dL Normal [facility] Comment on above: Result Comment: The reference range and other method performance specifications have not been established for this test in fluids. the test result should be integrated into the clinical context for interpretation. Performed By: #### L [id number] ####[facility] ([facility])[address] [place] [address] PROTEIN, TOTALon 09-30-2024 Protein [Mass/Vol] 6.1 g/dL Normal 6.0-8.3 [facility] Comment on above: Performed By: #### L [id number] ####[facility] ([facility])[address] [facility] [place] [address] PROTIME-INRon 09-30-2024 INR IN PPP BY COAGULATION ASSAY 4.67 High 0.90-1.10 [facility] Comment on above: Result Comment: ACCC P [...] CHEST 1995;[id number]. Performed By: #### L [id number] ####[facility] ([facility] [place] [address] PROTHROMBIN TIME (PT) IN PPP BY COAGULATION ASSAY 42.4 Seconds High 12.3-14.8 [facility] Comment on above: Performed By: #### L [id number] ####[facility] ([facility])[address] [place] [address] VANCOMYCIN TIMEDon VANCOMYCIN IN SER/PLAS - TIMED 11.8 Low 20.0-40.0 [facility] Comment on above: Performed By: #### L [id number] ####[facility] ([facility])[address] [place] [address] VENOUS BLOOD GAS WITH IONIZE D CALCIUMon 09-30-2024 Base excess Calc (BldV) [Moles/Vol] -2.2000 mmol/L Normal [facility] Comment on above: Performed By: #### L [id number] ####[facility] [id number] [place] [address] [facility] CALCIUM IONIZED (MMOL/L) IN BLOOD 1.28 mmol/L Normal 1.15-1.33 [facility] Comment on above: Performed By: #### L [id number] ####[facility] [id number] [place] [address] [place] CO2 (BldV) [Partial pressure] 41 mm[Hg] Normal 40-50 [facility] Comment on above: Performed By: #### L [id number] ####[facility] [id number] [place] [address] [place] HCO3 (Bld) [Moles/Vol] 23.2 mmol/L Normal [facility] Comment on above: Performed By: #### L [id number] ####[facility] RESPIR[facility] [id number] [place] [address] [place] Oxygen (BldV) [Partial pressure] 35 mm[Hg] Normal 35-45 [facility] Comment on above: Performed By: #### L [id number] ####[facility] [id number] [place] [address] [place] OXYGEN SATURATION (%) IN VENOUS BLOOD 51.1 % Invalid Interpretation Code 65.0-75.0 [facility] Comment on above: Performed By: #### L [id number] ####[facility] [id number] [place] [address] [facility] PH OF VENOUS BLOOD 7.36 Normal 7.31-7.41 [facility] Comment on above: Performed By: #### L [id number] ####[facility] [id number] [place] [address] [facility] APTTon 09-29-2024 ACTIVATED PARTIAL THROMBOPLASTIN TIME IN PPP BY COAGULATION ASSAY 38.4 Seconds High 25.0-35.0 [facility] Comment on above: Result Comment: Clin ical significance of the APTT is questionable in the presence of heparin. Performed By: #### L [id number] ####[facility] ([facility])[address] [place] [address] B-TYPE NATRIURETIC PEPTIDEon 09-29-2024 Natriuretic peptide B (Bld) [Mass/Vol] 1142 pg/mL High 0-100 [facility] Comment on above: Performed By: #### L [id number] ####[facility] ([facility])[address] [place] [address] BASIC METABOLIC PANELon 09-16 Anion gap [Moles/Vol] 20 mmol/L Normal 7-20 [facility] Comment on above: Performed By: #### L [id number] ####[facility] ([facility])[address] [place] [address] Calcium [Mass/Vol] 9.6 mg/dL Normal 8.6-10.3 [facility] Comment on above: Performed By: #### L [id number] ####[facility] ([facility] [place] [address] Chloride [Moles/Vol] 103 mmol/L Normal 98-107 [facility] Comment on above: Performed By: #### L [id number] ####[facility] ([facility] [place] [address] CO2 [Moles/Vol] 19 mmol/L Low 21-31 [facility] Comment on above: Performed By: #### L [id number] ####[facility] ([facility])[address] [place] [address] Creatinine [Mass/Vol] 4.12 mg/dL High 0.70-1.30 [facility] Comment on above: Performed By: #### L [id number] ####[facility] ([facility])[address] [place] [address] GLOMERULAR FILTRATION RATE ML/MIN/1.73 SQ M.PREDICTED 13.7 mL/min/1.73m*2 Low >60.0 [facility] Comment on above: Result Comment: The [facility]???s estimated glomerular filtration rate (eGFR) will no [...] of individuals. Performed By: #### L [id number] ####[facility] ([facility])[address] [place] [address] Glucose [Mass/Vol] 117 mg/dL High 70-100 [facility] Comment on above: Performed By: #### L [id number] ####[facility] ([facility])[address] [place] [address] Potassium [Moles/Vol] 6.2 mmol/L Critically high 3.5-5.1 [facility] Comment on above: Result Comment: M-NH EVIOUS CRITICAL RESULT Performed By: #### L [id number] ####[facility] ([facility])[address] [place] [address] Sodium [Moles/Vol] 136 mmol/L Normal 136-145 [facility] Comment on above: Performed By: #### L [id number] ####[facility] ([facility])[address] [place] [address] Urea nitrogen [Mass/Vol] 73 mg/dL High 7-25 [facility] Comment on above: Performed By: #### L [id number] ####[facility] ([facility])[address] [place] [address] UREA NITROGEN/CREATININE (MASS RATIO) IN SER/PLAS 17.7 Normal [facility] Comment on above: Performed By: #### L [id number] ####[facility] ([facility])[address] [place] [address] Anion gap [Moles/Vol] 23 mmol/L High 7-20 [facility] Comment on above: Performed By: #### L [id number] ####[facility] ([facility])[address] [place] [address] Calcium [Mass/Vol] 9.3 mg/dL Normal 8.6-10.3 [facility] Comment on above: Performed By: #### L [id number] ####[facility] ([facility])[address] [place] [address] Chloride [Moles/Vol] 102 mmol/L Normal 98-107 [facility] Comment on above: Performed By: #### L [id number] ####[facility] ([facility])[address] [place] [address] CO2 [Moles/Vol] 20 mmol/L Low 21-31 [facility] Comment on above: Performed By: #### L [id number] ####[facility] ([facility])[address] [place] [address] Creatinine [Mass/Vol] 4.18 mg/dL High 0.70-1.30 [facility] Comment on above: Performed By: #### L [id number] ####[facility] ([facility])[address] [place] [address] GLOMERULAR FILTRATION RATE ML/MIN/1.73 SQ M.PREDICTED 13.5 mL/min/1.73m*2 Low >60.0 [facility] Comment on above: Result Comment: The [facility]???s estimated glomerular filtration rate (eGFR) will no [...] of individuals. Performed By: #### L [id number] ####[facility] ([facility])[address] [place] [address] Glucose [Mass/Vol] 74 mg/dL Normal 70-100 [facility] Comment on above: Performed By: #### L [id number] ####[facility] ([facility])[address] [place] [address] Potassium [Moles/Vol] 6.1 mmol/L Critically high 3.5-5.1 [facility] Comment on above: Performed By: #### L [id number] ####[facility] ([facility])[address] [place] [address] Sodium [Moles/Vol] 139 mmol/L Normal 136-145 [facility] Comment on above: Performed By: #### L [id number] ####[facility] ([facility] [place] [address] Urea nitrogen [Mass/Vol] 74 mg/dL High 7-25 [facility] Comment on above: Performed By: #### L [id number] ####[facility] ([facility] [place] [address] UREA NITROGEN/CREATININE (MASS RATIO) IN SER/PLAS 17.7 Normal [facility] Comment on above: Performed By: #### L [id number] ####[facility] ([facility])[address] [place] [address] Anion gap [Moles/Vol] 25 mmol/L High 7-20 [facility] Comment on above: Performed By: #### L [id number] ####[facility] ([facility] [place] [address] Calcium [Mass/Vol] 7.1 mg/dL Low 8.6-10.3 [facility] Comment on above: Performed By: #### L [id number] ####[facility] ([facility])[address] [place] [address] Chloride [Moles/Vol] 111 mmol/L High 98-107 [facility] Comment on above: Performed By: #### L [id number] ####[facility] ([facility])[address] [place] [address] CO2 [Moles/Vol] 10 mmol/L Invalid Interpretation Code 21- [facility] Comment on above: Performed By: #### L [id number] ####[facility] ([facility] [place] [address] Creatinine [Mass/Vol] 3.06 mg/dL High 0.70-1.30 [facility] Comment on above: Performed By: #### L [id number] ####[facility] ([facility])[address] [place] [address] GLOMERULAR FILTRATION RATE ML/MIN/1.73 SQ M.PREDICTED 19.6 mL/min/1.73m*2 Low >60.0 [facility] Comment on above: Result Comment: The [facility]???s estimated glomerular filtration rate (eGFR) will no [...] of individuals. Performed By: #### L [id number] ####[facility] ([facility] [place] [address] Glucose [Mass/Vol] 41 mg/dL Invalid Interpretation Code 70-100 [facility] Comment on above: Performed By: #### L [id number] ####[facility] ([facility])[address] [place] [address] Potassium [Moles/Vol] 5.0 mmol/L Normal 3.5-5.1 [facility] Comment on above: Performed By: #### L [id number] ####[facility] ([facility])[address] [place] [address] Sodium [Moles/Vol] 141 mmol/L Normal 136-145 [facility] Comment on above: Performed By: #### L [id number] ####[facility] ([facility])[address] [place] [address] Urea nitrogen [Mass/Vol] 62 mg/dL High 7-25 [facility] Comment on above: Performed By: #### L [id number] ####[facility] ([facility])[address] [place] [address] UREA NITROGEN/CREATININE (MASS RATIO) IN SER/PLAS 20.3 Normal [facility] Comment on above: Performed By: #### L [id number] ####[facility] ([facility])[address] [place] [address] BLOOD CULTUREon 09-29-2024 Bacteria identified Cx Nom (Bld) No growth at 5 days Normal [facility] Comment on above: Order Comment: From a different site than #1. Performed By: #### L [id number] ####[facility] ([facility])[address] [place] [address] CBC WITH AUTO DIFFERENTIALon 09-29-2024 Erythrocyte distribution width (RBC) [Ratio] 23.3 % High 11.5-15.0 [facility] Comment on above: Performed By: #### L [id number] ####[facility] ([facility])[address] [place] [address] ERYTHROCYTE MEAN CORPUSCULAR HEMOGLOBIN CONCENTRATION (G/DL) BY AUTOMATED 28.1 g/dL Low 32.0-35.0 [facility] Comment on above: Performed By: #### L [id number] ####[facility] ([facility])[address] [place] [address] Hematocrit (Bld) [Volume fraction] 45.2 % Normal 39.0-55.0 [facility] Comment on above: Performed By: #### L [id number] ####[facility] ([facility])[address] [place] [address] Hemoglobin (Bld) [Mass/Vol] 12.7 g/dL Low 13.0-17.0 [facility] Comment on above: Performed By: #### L [id number] ####[facility] ([facility])[address] [place] [address] MCH (RBC) [Entitic mass] 27.6 pg Normal 27.0-33.0 [facility] Comment on above: Performed By: #### L [id number] ####[facility] ([facility])[address] [place] [address] MCV (RBC) [Entitic vol] 98.3 fL High 82.0-98.0 [facility] Comment on above: Performed By: #### L [id number] ####[facility] ([facility])[address] [place] [address] NRBC (PER 100 WBCS) BY AUTOMATED COUNT 0.5 % High 0 [facility] Comment on above: Performed By: #### L [id number] ####[facility] ([facility])[address] [place] [address] PLATELETS (10*3/UL) IN BLOOD AUTOMATED COUNT 239 10*3/uL Normal 150-400 [facility] Comment on above: Performed By: #### L [id number] ####[facility] ([facility])[address] [place] [address] RBC (Bld) [#/Vol] 4.60 10*6/uL Normal 4.20-5.70 [facility] Comment on above: Performed By: #### L [id number] ####[facility] ([facility] [place] [address] WBC (Bld) [#/Vol] 13.18 10*3/uL High 4.00-10.60 [facility] Comment on above: Performed By: #### L [id number] ####[facility] ([facility])[address] [place] [address] CKon 09-29-2024 CREATINE KINASE (U/L) IN SER/PLAS 96.0 U/L Normal 30.0-223.0 [facility] Comment on above: Performed By: #### L [id number] ####[facility] ([facility])[address] [place] [address] CK TOTAL AND CKMBon 09-29-19 CREATINE KINASE (U/L) IN SER/PLAS 88.0 U/L Normal 30.0-223.0 [facility] Comment on above: Performed By: #### L [id number] ####[facility] ([facility])[address] [place] [address] CREATINE KINASE MB/CREATINE KINASE TOTAL BY CALCULATION 11.4 High 0.0-1.9 [facility] Comment on above: Performed By: #### L [id number] ####[facility] ([facility])[address] [place] [address] CREATINE KINASE-MB (NG/ML) IN SER/PLAS 10.0 ng/mL High 0.0-5.0 [facility] Comment on above: Performed By: #### L [id number] ####[facility] ([facility])[address] [place] [address] COMPREHENSIVE METABOLIC PANE Aldo 09-29-2024 Albumin [Mass/Vol] 3.4 g/dL Low 3.5-5.7 [facility] Comment on above: Performed By: #### L [id number] ####[facility] ([facility] [place] [address] ALP [Catalytic activity/Vol] 96 U/L Normal 34-104 [facility] Comment on above: Performed By: #### L [id number] ####[facility] ([facility])[address] [place] [address] ALT [Catalytic activity/Vol] 492 U/L High 7-52 [facility] Comment on above: Performed By: #### L [id number] ####[facility] ([facility])[address] [place] [address] Anion gap [Moles/Vol] 32 mmol/L High 7-20 [facility] Comment on above: Performed By: #### L [id number] ####[facility] ([facility])[address] [place] [address] AST [Catalytic activity/Vol] 767 U/L High 13-39 [facility] Comment on above: Performed By: #### L [id number] ####[facility] ([facility])[address] [place] [address] Bilirubin [Mass/Vol] 2.2 mg/dL High 0.3-1.0 [facility] Comment on above: Performed By: #### L [id number] ####[facility] ([facility])[address] [place] [address] Calcium [Mass/Vol] 9.6 mg/dL Normal 8.6-10.3 [facility] Comment on above: Performed By: #### L [id number] ####[facility] ([facility])[address] [place] [address] Chloride [Moles/Vol] 100 mmol/L Normal 98-107 [facility] Comment on above: Performed By: #### L [id number] ####[facility] ([facility])[address] [place] [address] CO2 [Moles/Vol] 10 mmol/L Invalid Interpretation Code 21-31 [facility] Comment on above: Performed By: #### L [id number] ####[facility] ([facility])[address] [place] [address] Creatinine [Mass/Vol] 4.06 mg/dL High 0.70-1.30 [facility] Comment on above: Performed By: #### L [id number] ####[facility] ([facility])[address] [place] [address] GLOMERULAR FILTRATION RATE ML/MIN/1.73 SQ M.PREDICTED 14.0 mL/min/1.73m*2 Low >60.0 [facility] Comment on above: Result Comment: The [facility]???s estimated glomerular filtration rate (eGFR) will no [...] of individuals. Performed By: #### L [id number] ####[facility] ([facility])[address] [place] [address] Glucose [Mass/Vol] 59 mg/dL Low 70-100 [facility] Comment on above: Performed By: #### L [id number] ####[facility] ([facility])[address] [place] [address] Potassium [Moles/Vol] 6.9 mmol/L Critically high 3.5-5.1 [facility] Comment on above: Performed By: #### L [id number] ####[facility] ([facility])[address] [place] [address] Protein [Mass/Vol] 6.8 g/dL Normal 6.0-8.3 [facility] Comment on above: Performed By: #### L [id number] ####[facility] ([facility])[address] [place] [address] Sodium [Moles/Vol] 135 mmol/L Low 136-145 [facility] Comment on above: Performed By: #### L [id number] ####[facility] ([facility])[address] [place] [address] Urea nitrogen [Mass/Vol] 74 mg/dL High 7-25 [facility] Comment on above: Performed By: #### L [id number] ####[facility] ([facility])[address] [place] [address] UREA NITROGEN/CREATININE (MASS RATIO) IN SER/PLAS 18.2 Normal [facility] Comment on above: Performed By: #### L [id number] ####[facility] ([facility])[address] [place] [address] CT ABDOMEN PELVIS WO IV CONT RASTon 09-29-2024 CT ABDOMEN PELVIS WO IV CONTRAST Normal [facility] CT CHEST WO IV CONTRASTon CT CHEST WO IV CONTRAST Invalid Interpretation Code [facility] D-DIMER, QUANTITATIVEon 09-16 FIBRIN D-DIMER (UG/L FEU) IN PLATELET POOR PLASMA 18.94 mcg/mL FEU High 0.27-0.49 [facility] Comment on above: Order Comment: D-Dim er values of less than 0.50 ug/ml (FEU) are considered to be a negative predictor of thrombosis. However, the D-Dimer result should be used in conjunction with pretest probability and should not be used alone to diagnose a thrombotic event. Performed By: #### L [id number] ####[facility] ([facility])[address] [place] [address] EDPROVon 09-29-2024 EDPROV Invalid Interpretation Code [facility] EDPROV Normal [facility] FIBRIN SPLIT PRODUCTSon 09-16 FDP >20ug/mL Critically abnormal <5ug/mL, 5ug/mL, 10ug/mL [facility] Comment on above: Performed By: #### L [id number] ####[facility] ([facility])[address] [place] [address] FIBRINOGENon 09-29-2024 Magnesium [Mass/Vol] 272 mg/dL Normal 150-425 [facility] Comment on above: Performed By: #### L [id number] ####[facility] ([facility])[address] [place] [address] HPon 09-29-2024 HP Normal [facility] LACTIC ACID WITH 4 HOUR REFL EXon 09-29-2024 LACTATE (MMOL/L) IN SER/PLAS 8.1 mmol/L Critically high 0.5-2.2 [facility] Comment on above: Result Comment: Prev ious result verified on 09/29/2024 1609 on specimen/case [id number] called with component Lactate blood venous for procedure Lactic acid with 4 hour reflex with value 12.5 mmol/L. Performed By: #### L [id number] ####[facility] ([facility])[address] [place] [address] LACTATE (MMOL/L) IN SER/PLAS 10.7 mmol/L Critically high 0.5-2.2 [facility] Comment on above: Result Comment: Prev ious result verified on 09/29/2024 1609 on specimen/case [facility]-[id number] called with component Lactate blood venous for procedure Lactic acid with 4 hour reflex with value 12.5 mmol/L. Performed By: #### L [id number] ####[facility] ([facility])[address] [place] [address] LACTATE (MMOL/L) IN SER/PLAS 12.5 mmol/L Critically high 0.5-2.2 [facility] Comment on above: Result Comment: Prev ious result verified on 09/29/2024 1609 on specimen/case [facility]-[id number] called with component Lactate blood venous for procedure Lactic acid with 4 hour reflex with value 12.5 mmol/L. Performed By: #### L [id number] ####[facility] ([facility])[address] [place] [address] LACTATE (MMOL/L) IN SER/PLAS 12.5 mmol/L Critically high 0.5-2.2 [facility] Comment on above: Performed By: #### L [id number] ####[facility] ([facility])[address] [place] [address] MAGNESIUMon 09-29-2024 Magnesium [Mass/Vol] 1.9 mg/dL Normal 1.9-2.7 [facility] Comment on above: Performed By: #### L [id number] ####[facility] ([facility])[address] [place] [address] MANUAL DIFFERENTIALon 2024 ANISOCYTOSIS PRESENCE IN BLOOD BY LIGHT MICROSCOPY Moderate Normal [facility] Comment on above: Performed By: #### L [id number] ####[facility] ([facility])[address] [place] [address] BASOPHILS (10*3/UL) IN BLOOD BY CALCULATION 0.05 10*3/uL Normal 0.00-0.20 [facility] Comment on above: Performed By: #### L [id number] ####[facility] ([facility])[address] [place] [address] BASOPHILS/100 LEUKOCYTES IN BLOOD BY AUTOMATED COUNT 0.4 % Normal 0.0-1.0 [facility] Comment on above: Performed By: #### L [id number] ####[facility] ([facility])[address] [place] [address] HAMZAH CELLS PRESENCE IN BLOOD BY LIGHT MICROSCOPY Slight Normal [facility] Comment on above: Performed By: #### L [id number] ####[facility] ([facility])[address] [place] [address] EOSINOPHILS (10*3/UL) IN BLOOD BY CALCULATION 0.07 10*3/uL Normal 0.00-0.50 [facility] Comment on above: Performed By: #### L [id number] ####[facility] ([facility])[address] [place] [address] EOSINOPHILS/100 LEUKOCYTES IN BLOOD BY AUTOMATED COUNT 0.5 % Normal 0.0-6.0 [facility] Comment on above: Performed By: #### L [id number] ####[facility] ([facility])[address] [place] [address] IMMATURE GRANULOCYTES (10*3/UL) IN BLOOD BY CALCULATION 0.22 10*3/uL High 0.00-0.20 [facility] Comment on above: Performed By: #### L [id number] ####[facility] ([facility])[address] [place] [address] IMMATURE GRANULOCYTES/100 LEUKOCYTES IN BLOOD BY AUTOMATED COUNT 1.7 % High 0.0-1.0 [facility] Comment on above: Performed By: #### L [id number] ####[facility] ([facility])[address], [place] [address] LYMPHOCYTES (10*3/UL) IN BLOOD BY CALCULATION 0.36 10*3/uL Low 1.20-4.00 [facility] Comment on above: Performed By: #### L [id number] ####[facility] (AKER)[address], [place] [address] LYMPHOCYTES/100 LEUKOCYTES IN BLOOD BY AUTOMATED COUNT 2.7 % Low 20.0-45.0 [facility] Comment on above: Performed By: #### L [id number] ####[facility] (AKER)[address], [place] [address] MONOCYTES (10*3/UL) IN BLOOD BY CALCUATION 1.27 10*3/uL High 0.10-1.00 [facility] Comment on above: Performed By: #### L [id number] ####[facility] ([facility])[address], [place] [address] MONOCYTES/100 LEUKOCYTES IN BLOOD BY AUTOMATED COUNT 9.6 % Normal 5.0-12.0 [facility] Comment on above: Performed By: #### L [id number] ####[facility] ([facility])[address], [place] [address] NEUTROPHILS (10*3/UL) IN BLOOD BY CALCULATION 11.2 10*3/uL High 1.6-7.6 [facility] Comment on above: Performed By: #### L [id number] ####[facility] ([facility])[address], [place] [address] NEUTROPHILS/100 LEUKOCYTES IN BLOOD BY AUTOMATED COUNT 85.1 % High 40.0-72.0 [facility] Comment on above: Performed By: #### L [id number] ####[facility] ([facility])[address] [place] [address] POIKILOCYTOSIS (PRESENCE) IN BLOOD BY LIGHT MICROSCOPY Moderate Normal [facility] Comment on above: Performed By: #### L [id number] ####[facility] ([facility] [place] [address] POLYCHROMASIA IN BLOOD BY LIGHT MICROSCOPY Slight Normal [facility] Comment on above: Performed By: #### L [id number] ####[facility] ([facility])[address] [place] [address] SCHISTOCYTES (PRESENCE) IN BLOOD BY LIGHT MICROSCOPY Slight Normal [facility] Comment on above: Performed By: #### L [id number] ####[facility] ([facility])[address] [place] [address] PATHOLOGY REVIEWon PATHOLOGY REVIEW Reviewed. Normal [facility] Comment on above: Result Comment: Elec tronically signed by Leeann Deras MD on 09/30/24 at 2:55 PM. Performed By: #### L [id number] ####[facility] ([facility])[address] [place] [address] PHOSPHORUSon 09-29-2024 Magnesium [Mass/Vol] 4.9 mg/dL Normal 2.5-5.0 [facility] Comment on above: Performed By: #### L [id number] ####[facility] ([facility])[address] [place] [address] PLATELET COUNTon 09-29-2024 PLATELETS (10*3/UL) IN BLOOD AUTOMATED COUNT 229 10*3/uL Normal 150-400 [facility] Comment on above: Performed By: #### L [id number] ####[facility] ([facility])[address] [place] [address] POCT GLUCOSE METER UNSOLICIT ED RESULTSon 09-29-2024 Glucose [Mass/Vol] 255 mg/dL High 70-105 [facility] Comment on above: Order Comment: Waive d Testing in the ED is performed under the ED CLIA certificate #[id number]. Result Comment: [email or web address] Performed By: #### L [id number] ####[facility] ([facility])[address] [place] [address] Glucose [Mass/Vol] 75 mg/dL Normal 70-105 [facility] Comment on above: Order Comment: Waive d Testing in the ED is performed under the ED CLIA certificate #[id number]. Result Comment: kareen domínguez Performed By: #### L [id number] ####[facility] ([facility])[address] [place] [address] [place] [address] PROCALCITONIN TESTon 025 PROCALCITONIN IN BLOOD 0.20 ng/mL High 0.00-0.10 [facility] Comment on above: Result Comment: Susp ected [...] and initial PCT<0.5ng/mL Performed By: #### L [id number] ####[facility] ([facility])[address] [place] [address] PROTIME-INRon 09-29-2024 INR IN PPP BY COAGULATION ASSAY 3.94 High 0.90-1.10 [facility] Comment on above: Result Comment: [facility] P RECOMMENDED INR FOR WARFARIN THERAPY CONDITION INRPROPHYLAXIS OF VENOUS THROMBOSIS 2-3(HIGH-RISK SURGERY)TREATMENT OF VENOUS THROMBOSIS 2-3TREATMENT OF PULMONARY EMBOLISM 2-3PREVENTION OF SYSTEMIC EMBOLISM: 2-3 ACUTE MYOCARDIAL INFARCTION TISSUE HEART VALVES VALVULAR HEART DISEASE ATRIAL FIBRILLATION RECURRENT SYSTEMIC EMBOLISMMECHANICAL HEART VALVE 2.5-3.5 FROM: ORAL ANTICOAGULANTS. MECHANISM OF ACTION, CLINICAL EFFECTIVENESS, AND OPTIMAL THERAPEUTIC RANGE. CHEST 1995;108:231S-246S. Performed By: #### L [id number] ####[facility])[address] [place] [address] PROTHROMBIN TIME (PT) IN PPP BY COAGULATION ASSAY 37.3 Seconds High 12.3-14.8 [facility] Comment on above: Performed By: #### L [id number] ####[facility] [employer])[address] [place] [address] TROPONIN Ion 09-29-2024 Troponin I.cardiac [Mass/Vol] 0.37 ng/mL Critically high 0.00-0.04 [facility] Comment on above: Result Comment: M-NH EVIOUS CRITICAL RESULT Performed By: #### L [id number] ####[facility] [employer])[address] [place] [address] Troponin I.cardiac [Mass/Vol] 0.39 ng/mL Critically high 0.00-0.04 [facility] Comment on above: Performed By: #### L [id number] ####[facility] ([facility]ER)[address] [place] [address] VENOUS BLOOD GAS WITH IONIZE D CALCIUMon 09-29-2024 Base excess Calc (BldV) [Moles/Vol] -9.9000 mmol/L Normal [facility] Comment on above: Performed By: #### L [id number] ####[facility] [id number] [place] [address] [facility] CALCIUM IONIZED (MMOL/L) IN BLOOD 1.21 mmol/L Normal 1.15-1.33 [facility] Comment on above: Performed By: #### L [id number] ####[facility] [id number] [place] [address] [facility] CO2 (BldV) [Partial pressure] 41 mm[Hg] Normal 40-50 [facility] Comment on above: Performed By: #### L [id number] ####[facility] [id number] [place] [address] [facility] HCO3 (Bld) [Moles/Vol] 17.2 mmol/L Normal [facility] Comment on above: Performed By: #### L [id number] ####[facility] [id number] [place] [address] [facility] Oxygen (BldV) [Partial pressure] 24 mm[Hg] Invalid Interpretation Code 35-45 [facility] Comment on above: Performed By: #### L [id number] ####[facility] [id number] [place] [address] [facility] OXYGEN SATURATION (%) IN VENOUS BLOOD 24.1 % Invalid Interpretation Code 65.0-75.0 [facility] Comment on above: Performed By: #### L [id number] ####[facility] [id number] [place] [address] [facility] PH OF VENOUS BLOOD 7.23 Low 7.31-7.41 [facility] Comment on above: Performed By: #### L [id number] ####[facility] [id number] [place] [address] [facility] Basic metabolic 2000 panelon 09-25-2024 Anion gap [Moles/Vol] 14 mmol/L Normal 8-15 [facility] Comment on above: Order Comment: Speci men Type: BLOOD SPECIMENOrdering Facility: [facility] Address: [address] [place] [address] Performed By: #### 2 4321-2 ####[facility] LABCLIA [id number] [place] [address] [place] Calcium [Mass/Vol] 9.0 mg/dL Normal 8.5-10.2 [facility] Comment on above: Order Comment: Speci men Type: BLOOD SPECIMENOrdering Facility: [facility] Address: [address] [place] [address] Performed By: #### 2 4321-2 ####[facility] LABCLIA [id number] [place] [address] [place] Chloride [Moles/Vol] 101 mmol/L Normal 98-107 [facility] Comment on above: Order Comment: Speci men Type: BLOOD SPECIMENOrdering Facility: [facility] Address: [address] [place] [address] Performed By: #### 2 4321-2 ####[facility] LABCLIA [id number] [place] [address] [place] CO2 [Moles/Vol] 25 mmol/L Normal 22-30 [facility] Comment on above: Order Comment: Speci men Type: BLOOD SPECIMENOrdering Facility: [facility] Address: [address] [place] [address] Performed By: #### 2 4321-2 ####[facility] LABCLIA [id number] [place] [address] [place] Creatinine [Mass/Vol] 3.21 mg/dL High 0.73-1.22 [facility] Comment on above: Order Comment: Speci men Type: BLOOD SPECIMENOrdering Facility: [facility] Address: [address] [place], [place] [id number] Performed By: #### 2 4321-2 ####[facility] LABCLIA [id number] [place] [address] [place] Creatinine and Glomerular filtration rate.predicted panel (S/P/Bld) 19 mL/min/1.73m??? Low >=60 [facility] Comment on above: Order Comment: Dylan olvera Type: BLOOD SPECIMENOrdering Facility: [facility] Address: [address] [place] [address] Result Comment: Etta mated Glomerular Filtration Rate [...] actual GFR. Performed By: #### 2 4321-2 ####[facility] LABCLIA [id number] [place] [address] [place] Glucose [Mass/Vol] 103 mg/dL High 74-99 [facility] Comment on above: Order Comment: Dylan olvera Type: BLOOD SPECIMENOrdering Facility: [facility] Address: [address] [place] [address] Result Comment: The [place] [employer] (ADA) provides guidance for cutoff [...] Standards of Medical Care in Diabetes 2016, [place] [employer]. Diabetes Care. 2016.39(Suppl 1). Performed By: #### 2 4321-2 ####[facility] LABCLIA [id number] [place] [address] [place] Potassium [Moles/Vol] 3.8 mmol/L Normal 3.7-5.1 [facility] Comment on above: Order Comment: Speci men Type: BLOOD SPECIMENOrdering Facility: [facility] Address: [address] [place] [address] Performed By: #### 2 4321-2 ####[facility] LABCLIA [id number] [place] [address] [place] Sodium [Moles/Vol] 140 mmol/L Normal 136-144 [facility] Comment on above: Order Comment: Speci men Type: BLOOD SPECIMENOrdering Facility: [facility] Address: [address] [place] [address] Performed By: #### 2 4321-2 ####[facility] LABCLIA [id number] [place] [address] [place] Urea nitrogen [Mass/Vol] 67 mg/dL High 9-24 [facility] Comment on above: Order Comment: Speci men Type: BLOOD SPECIMENOrdering Facility: [facility] Address: [address] [place] [address] Performed By: #### 2 4321-2 ####[facility] LABIA [id number] [place] [address] [place] CASE MANAGEMon 09-25-2024 CASE MANAGEM Normal [facility] CBC panel Auto (Bld)on 09-25 Erythrocyte distribution width (RBC) [Ratio] 21.0 % High 11.5-15.0 [facility] Comment on above: Order Comment: Speci men Type: BLOOD SPECIMENOrdering Facility: [facility] Address: [address] [place] [address] Performed By: #### 5 8410-2 ####[facility] LABCLIA [id number] [place] [address] [place] Hematocrit (Bld) [Volume fraction] 32.2 % Low 39.0-51.0 [facility] Comment on above: Order Comment: Speci men Type: BLOOD SPECIMENOrdering Facility: [facility] Address: [address] [place] [address] Performed By: #### 5 8410-2 ####[facility] LABIA [id number] [place] [address] [place] Hemoglobin (Bld) [Mass/Vol] 10.0 g/dL Low 13.0-17.0 [facility] Comment on above: Order Comment: Speci men Type: BLOOD SPECIMENOrdering Facility: [facility] Address: [address] [place] [address] Performed By: #### 5 8410-2 ####[facility] LABIA [id number] [place] [address] [place] MCH (RBC) [Entitic mass] 27.5 pg Normal 26.0-34.0 [facility] Comment on above: Order Comment: Speci men Type: BLOOD SPECIMENOrdering Facility: [facility] Address: [address] [place] [address] Performed By: #### 5 8410-2 ####[facility] LABIA [id number] [place] [address] [place] MCHC (RBC) [Mass/Vol] 31.1 g/dL Normal 30.5-36.0 [facility] Comment on above: Order Comment: Speci men Type: BLOOD SPECIMENOrdering Facility: [facility] Address: [address] [place] [address] Performed By: #### 5 8410-2 ####[facility] LABIA [id number] [place] [address] [place] MCV (RBC) [Entitic vol] 88.5 fL Normal 80.0-100.0 [facility] Comment on above: Order Comment: Speci men Type: BLOOD SPECIMENOrdering Facility: [facility] Address: [address] [place] [address] Performed By: #### 5 8410-2 ####[facility] LABCLIA [id number] [place] [address] [place] Nucleated RBC (Bld) [#/Vol] 0.06 10*3/uL High <0.01 [facility] Comment on above: Order Comment: Speci men Type: BLOOD SPECIMENOrdering Facility: [facility] Address: [address] [place] [address] Performed By: #### 5 8410-2 ####[facility] LABCLIA [id number] [place] [address] [place] Platelet mean volume (Bld) [Entitic vol] 10.0 fL Normal 9.0-12.7 [facility] Comment on above: Order Comment: Speci men Type: BLOOD SPECIMENOrdering Facility: [facility] Address: [address] [place] [address] Performed By: #### 5 8410-2 ####[facility] LABCLIA [id number] [place] [address] [place] Platelets (Bld) [#/Vol] 226 10*3/uL Normal 150-400 [facility] Comment on above: Order Comment: Speci men Type: BLOOD SPECIMENOrdering Facility: [facility] Address: [address] [place] [address] Performed By: #### 5 8410-2 ####[facility] LABCLIA [id number] [place] [address] [place] RBC (Bld) [#/Vol] 3.64 10*6/uL Low 4.20-6.00 [facility] Comment on above: Order Comment: Speci men Type: BLOOD SPECIMENOrdering Facility: [facility] Address: [address] [place] [address] Performed By: #### 5 8410-2 ####[facility] LABCLIA [id number] [place] [address] [place] WBC (Bld) [#/Vol] 4.34 10*3/uL Normal 3.70-11.00 [facility] Comment on above: Order Comment: Speci men Type: BLOOD SPECIMENOrdering Facility: [facility] Address: [address] [place] [address] Performed By: #### 5 8410-2 ####[facility] LABCLIA [id number] [place] [address] [place] CNDSon 09-25-2024 CNDS Normal [facility] NURSING PROGon 09-25-2024 NURSING PROG Normal [facility] NUTRITIONon 09-25-2024 NUTRITION Normal [facility] PT EDon 09-25-2024 PT ED Normal [facility] PT ED Normal [facility] THERAPY NTon 09-25-2024 THERAPY NT Normal [facility] Basic metabolic 2000 panelon 09-24-2024 Anion gap [Moles/Vol] 14 mmol/L Normal 8-15 [facility] Comment on above: Order Comment: Speci men Type: BLOOD SPECIMENOrdering Facility: [facility] Address: [address] [place], [place] [address] Performed By: #### 2 4321-2 ####[facility] LABCLIA [id number] [place] [address] [place] Calcium [Mass/Vol] 9.1 mg/dL Normal 8.5-10.2 [facility] Comment on above: Order Comment: Speci men Type: BLOOD SPECIMENOrdering Facility: [facility] Address: [address] [place] [address] Performed By: #### 2 4321-2 ####[facility] LABCLIA [id number] [address] [address] [place] Chloride [Moles/Vol] 100 mmol/L Normal 98-107 [facility] Comment on above: Order Comment: Speci men Type: BLOOD SPECIMENOrdering Facility: [facility] Address: [address] [place] [address] Performed By: #### 2 4321-2 ####[facility] LABIA [id number] [place] [address] [place] CO2 [Moles/Vol] 27 mmol/L Normal 22-30 [facility] Comment on above: Order Comment: Speci men Type: BLOOD SPECIMENOrdering Facility: [facility] Address: [address] [place] [address] Performed By: #### 2 4321-2 ####[facility] LABIA [id number] [place] [address] [place] Creatinine [Mass/Vol] 3.31 mg/dL High 0.73-1.22 [facility] Comment on above: Order Comment: Speci men Type: BLOOD SPECIMENOrdering Facility: [facility] Address: [address] [place] [address] Performed By: #### 2 4321-2 ####[facility] [id number] [address] [place] Creatinine and Glomerular filtration rate.predicted panel (S/P/Bld) 18 mL/min/1.73m??? Low >=60 [facility] Comment on above: Order Comment: Speci men Type: BLOOD SPECIMENOrdering Facility: [facility] Address: [address] [place] [address] Result Comment: Etta mated Glomerular Filtration Rate [...] actual GFR. Performed By: #### 2 4321-2 ####[facility] LABIA [id number] [place] [address] [place] Glucose [Mass/Vol] 82 mg/dL Normal 74-99 [facility] Comment on above: Order Comment: Speci men Type: BLOOD SPECIMENOrdering Facility: [facility] Address: [address] [place] [address] Result Comment: The [place] [employer] (ADA) provides guidance for cutoff [...] Standards of Medical Care in Diabetes 2016, [place] [employer]. Diabetes Care. 2016.39(Suppl 1). Performed By: #### 2 4321-2 ####[facility] LABCLIA [id number] [place] [address] [place] Potassium [Moles/Vol] 3.6 mmol/L Low 3.7-5.1 [facility] Comment on above: Order Comment: Rozi men Type: BLOOD SPECIMENOrdering Facility: [facility] Address: [address] [place] [address] Performed By: #### 2 4321-2 ####[facility] LABCLIA [id number] [place] [address] [place] Sodium [Moles/Vol] 141 mmol/L Normal 136-144 [facility] Comment on above: Order Comment: Speci men Type: BLOOD SPECIMENOrdering Facility: [facility] Address: [address] [place] [address] Performed By: #### 2 4321-2 ####[facility] LABCLIA [id number] [place] [address] [place] Urea nitrogen [Mass/Vol] 64 mg/dL High 9-24 [facility] Comment on above: Order Comment: Speci men Type: BLOOD SPECIMENOrdering Facility: [facility] Address: [address] [place] [address] Performed By: #### 2 4321-2 ####[facility] LABCLIA [id number] [place] [address] [place] CASE MANAGEMon 09-24-2024 CASE MANAGEM Normal [facility] CBC panel Auto (Bld)on 09-24 Erythrocyte distribution width (RBC) [Ratio] 20.6 % High 11.5-15.0 [facility] Comment on above: Order Comment: Speci men Type: BLOOD SPECIMENOrdering Facility: [facility] Address: [address] [place] [address] Performed By: #### 5 8410-2 ####[facility] LABCLIA [id number] [place] [address] [place] Hematocrit (Bld) [Volume fraction] 33.2 % Low 39.0-51.0 [facility] Comment on above: Order Comment: Speci men Type: BLOOD SPECIMENOrdering Facility: [facility] Address: [address] [place] [address] Performed By: #### 5 8410-2 ####[facility] LABCLIA [id number] [place] [address] [place] Hemoglobin (Bld) [Mass/Vol] 10.1 g/dL Low 13.0-17.0 [facility] Comment on above: Order Comment: Speci men Type: BLOOD SPECIMENOrdering Facility: [facility] Address: [address] [place] [address] Performed By: #### 5 8410-2 ####[facility] LABCLIA [id number] [facility] [place] [address] [place] MCH (RBC) [Entitic mass] 27.2 pg Normal 26.0-34.0 [facility] Comment on above: Order Comment: Speci men Type: BLOOD SPECIMENOrdering Facility: [facility] Address: [address] [place] [address] Performed By: #### 5 8410-2 ####[facility] LABIA [id number] [place] [address] [place] MCHC (RBC) [Mass/Vol] 30.4 g/dL Low 30.5-36.0 [facility] Comment on above: Order Comment: Speci men Type: BLOOD SPECIMENOrdering Facility: [facility] Address: [address] [place] [address] Performed By: #### 5 8410-2 ####[facility] [id number] [place] [address] [place] MCV (RBC) [Entitic vol] 89.2 fL Normal 80.0-100.0 [facility] Comment on above: Order Comment: Speci men Type: BLOOD SPECIMENOrdering Facility: [facility] Address: [address] [place] [address] Performed By: #### 5 8410-2 ####[facility] LABIA [id number] [place] [address] [place] Nucleated RBC (Bld) [#/Vol] 0.05 10*3/uL High <0.01 [facility] Comment on above: Order Comment: Speci men Type: BLOOD SPECIMENOrdering Facility: [facility] Address: [address] [place] [address] Performed By: #### 5 8410-2 ####[facility] [id number] [place] [address] [place] Platelet mean volume (Bld) [Entitic vol] 10.1 fL Normal 9.0-12.7 [facility] Comment on above: Order Comment: Speci men Type: BLOOD SPECIMENOrdering Facility: [facility] Address: [address] [place] [address] Performed By: #### 5 8410-2 ####[facility] LABIA [id number] [address] [address] [place] Platelets (Bld) [#/Vol] 229 10*3/uL Normal 150-400 [facility] Comment on above: Order Comment: Speci men Type: BLOOD SPECIMENOrdering Facility: [facility] Address: [address] [place] [address] Performed By: #### 5 8410-2 ####[facility] LABIA [id number] [place] [address] [place] RBC (Bld) [#/Vol] 3.72 10*6/uL Low 4.20-6.00 [facility] Comment on above: Order Comment: Speci men Type: BLOOD SPECIMENOrdering Facility: [facility] Address: [address] [place] [address] Performed By: #### 5 8410-2 ####[facility] [id number] [place] [address] [place] WBC (Bld) [#/Vol] 4.45 10*3/uL Normal 3.70-11.00 [facility] Comment on above: Order Comment: Speci men Type: BLOOD SPECIMENOrdering Facility: [facility] Address: [address] [place] [address] Performed By: #### 5 8410-2 ####[facility] [id number] [place] [id number] [place] CONSULT PROGon 09-24-2024 CONSULT PROG Normal [facility] THERAPY NTon 09-24-2024 THERAPY NT Normal [facility] THERAPY NT Normal [facility] Basic metabolic 2000 panelon 09-23-2024 Anion gap [Moles/Vol] 15 mmol/L Normal 8-15 [facility] Comment on above: Order Comment: Speci men Type: BLOOD SPECIMENOrdering Facility: [facility] Address: [address] [place] [address] Performed By: #### 2 4321-2 ####[facility] LABCLIA [id number] [place] [address] [place] Calcium [Mass/Vol] 9.2 mg/dL Normal 8.5-10.2 [facility] Comment on above: Order Comment: Speci men Type: BLOOD SPECIMENOrdering Facility: [facility] Address: [address] [place] [address] Performed By: #### 2 4321-2 ####[facility] LABCLIA [id number] [place] [address] [place] Chloride [Moles/Vol] 96 mmol/L Low 98-107 [facility] Comment on above: Order Comment: Speci men Type: BLOOD SPECIMENOrdering Facility: [facility] Address: [address] [place] [address] Performed By: #### 2 4321-2 ####[facility] LABCLIA [id number] [place] [address] [place] CO2 [Moles/Vol] 27 mmol/L Normal 22-30 [facility] Comment on above: Order Comment: Speci men Type: BLOOD SPECIMENOrdering Facility: [facility] Address: [address] [place] [address] Performed By: #### 2 4321-2 ####[facility] LABCLIA [id number] [place] [address] [place] Creatinine [Mass/Vol] 3.64 mg/dL High 0.73-1.22 [facility] Comment on above: Order Comment: Speci men Type: BLOOD SPECIMENOrdering Facility: [facility] Address: [address] [place], [place] [address] Performed By: #### 2 4321-2 ####[facility] LABCLIA [id number] [address] [address] [place] Creatinine and Glomerular filtration rate.predicted panel (S/P/Bld) 16 mL/min/1.73m??? Low >=60 [facility] Comment on above: Order Comment: Dylan olvera Type: BLOOD SPECIMENOrdering Facility: [facility] Address: [address] [place] [address] Result Comment: Etta mated Glomerular Filtration Rate [...] actual GFR. Performed By: #### 2 4321-2 ####[facility] LABCLIA [id number] [place] [address] [place] Glucose [Mass/Vol] 124 mg/dL High 74-99 [facility] Comment on above: Order Comment: Dylan olvera Type: BLOOD SPECIMENOrdering Facility: [facility] Address: [address] [place] [address] Result Comment: The [place] Diabetes Association (ADA) provides guidance for cutoff [...] Standards of Medical Care in Diabetes 2016, [place] [employer]. Diabetes Care. 2016.39(Suppl 1). Performed By: #### 2 4321-2 ####[facility] LABIA [id number] [place] [address] [place] Potassium [Moles/Vol] 3.3 mmol/L Low 3.7-5.1 [facility] Comment on above: Order Comment: Speci men Type: BLOOD SPECIMENOrdering Facility: [facility] Address: [address] [place] [id number] Performed By: #### 2 4321-2 ####[facility] LABCLIA [id number] [place] [id number] [place] Sodium [Moles/Vol] 138 mmol/L Normal 136-144 [facility] Comment on above: Order Comment: Speci men Type: BLOOD SPECIMENOrdering Facility: [facility] Address: [address] [place], [place] [address] Performed By: #### 2 4321-2 ####[facility] LABCLIA [id number] [place] [address] [place] Urea nitrogen [Mass/Vol] 66 mg/dL High 9-24 [facility] Comment on above: Order Comment: Speci men Type: BLOOD SPECIMENOrdering Facility: [facility] Address: [address] [place] [address] Performed By: #### 2 4321-2 ####[facility] LABCLIA [id number] [place] [address] [place] Anion gap [Moles/Vol] 18 mmol/L High 8-15 [facility] Comment on above: Order Comment: Speci men Type: BLOOD SPECIMENOrdering Facility: [facility] Address: [address] [place], [place] [address] Performed By: #### 2 4321-2 ####[facility] LABCLIA [id number] [place] [id number] [place] Calcium [Mass/Vol] 9.4 mg/dL Normal 8.5-10.2 [facility] Comment on above: Order Comment: Speci men Type: BLOOD SPECIMENOrdering Facility: [facility] Address: [address] [place], [place] [address] Performed By: #### 2 4321-2 ####[facility] LABCLIA [id number] [place] [address] [place] Chloride [Moles/Vol] 97 mmol/L Low 98-107 [facility] Comment on above: Order Comment: Speci men Type: BLOOD SPECIMENOrdering Facility: [facility] Address: [address] [place] [address] Performed By: #### 2 4321-2 ####[facility] LABCLIA [id number] [place] [address] [place] CO2 [Moles/Vol] 24 mmol/L Normal 22-30 [facility] Comment on above: Order Comment: Speci men Type: BLOOD SPECIMENOrdering Facility: [facility] Address: [address] [place] [address] Performed By: #### 2 4321-2 ####[facility] LABCLIA [id number] [place] [address] [place] Creatinine [Mass/Vol] 3.86 mg/dL High 0.73-1.22 [facility] Comment on above: Order Comment: Speci men Type: BLOOD SPECIMENOrdering Facility: [facility] Address: [address] [place] [address] Performed By: #### 2 4321-2 ####[facility] LABIA [id number] [place] [address] [place] Creatinine and Glomerular filtration rate.predicted panel (S/P/Bld) 15 mL/min/1.73m??? Low >=60 [facility] Comment on above: Order Comment: Speci men Type: BLOOD SPECIMENOrdering Facility: [facility] Address: [address] [place] [address] Result Comment: Etta mated Glomerular Filtration Rate [...] actual GFR. Performed By: #### 2 4321-2 ####[facility] LABIA [id number] [place] [address] [place] Glucose [Mass/Vol] 66 mg/dL Low 74-99 [facility] Comment on above: Order Comment: Speci may Type: BLOOD SPECIMENOrdering Facility: [facility] Address: [address] [place] [address] Result Comment: The [place] Diabetes Association (ADA) provides guidance for cutoff [...] Standards of Medical Care in Diabetes 2016, [place] [employer]. Diabetes Care. 2016.39(Suppl 1). Performed By: #### 2 4321-2 ####[facility] LABIA [id number] [place] [address] [place] Sodium [Moles/Vol] 139 mmol/L Normal 136-144 [facility] Comment on above: Order Comment: Dylan olvera Type: BLOOD SPECIMENOrdering Facility: [facility] Address: [address] [place] [address] Performed By: #### 2 4321-2 ####[facility] [id number] [place] [address] [place] CASE MANAGEMon 09-23-2024 CASE MANAGEM Normal [facility] CASE MANAGEM Normal [facility] CBC panel Auto (Bld)on 09-23 Erythrocyte distribution width (RBC) [Ratio] 19.9 % High 11.5-15.0 [facility] Comment on above: Order Comment: Speci men Type: BLOOD SPECIMENOrdering Facility: [facility] Address: [address] [place] [address] Performed By: #### 5 8410-2 ####[facility] LABIA [id number] [place] [address] [place] Hematocrit (Bld) [Volume fraction] 34.1 % Low 39.0-51.0 [facility] Comment on above: Order Comment: Speci men Type: BLOOD SPECIMENOrdering Facility: [facility] Address: [address] [place] [address] Performed By: #### 5 8410-2 ####[facility] [id number] [place] [address] [place] Hemoglobin (Bld) [Mass/Vol] 10.4 g/dL Low 13.0-17.0 [facility] Comment on above: Order Comment: Speci men Type: BLOOD SPECIMENOrdering Facility: [facility] Address: [address] [place] [address] Performed By: #### 5 8410-2 ####[facility] LABIA [id number] [place] [address] [place] MCH (RBC) [Entitic mass] 27.0 pg Normal 26.0-34.0 [facility] Comment on above: Order Comment: Speci men Type: BLOOD SPECIMENOrdering Facility: [facility] Address: [address] [place] [address] Performed By: #### 5 8410-2 ####[facility] LABIA [id number] [place] [address] [place] MCHC (RBC) [Mass/Vol] 30.5 g/dL Normal 30.5-36.0 [facility] Comment on above: Order Comment: Speci men Type: BLOOD SPECIMENOrdering Facility: [facility] Address: [address] [place] [address] Performed By: #### 5 8410-2 ####[facility] LABIA [id number] [place] [address] [place] MCV (RBC) [Entitic vol] 88.6 fL Normal 80.0-100.0 [facility] Comment on above: Order Comment: Speci men Type: BLOOD SPECIMENOrdering Facility: [facility] Address: [address] [place] [address] Performed By: #### 5 8410-2 ####[facility] LABIA [id number] [place] [address] [place] Nucleated RBC (Bld) [#/Vol] 0.02 10*3/uL High <0.01 [facility] Comment on above: Order Comment: Speci men Type: BLOOD SPECIMENOrdering Facility: [facility] Address: [address] [place] [address] Performed By: #### 5 8410-2 ####[facility] [id number] [place] [address] [place] Platelet mean volume (Bld) [Entitic vol] 9.8 fL Normal 9.0-12.7 [facility] Comment on above: Order Comment: Speci men Type: BLOOD SPECIMENOrdering Facility: [facility] Address: [address] [place] [address] Performed By: #### 5 8410-2 ####[facility] LABIA [id number] [place] [address] [place] Platelets (Bld) [#/Vol] 233 10*3/uL Normal 150-400 [facility] Comment on above: Order Comment: Speci men Type: BLOOD SPECIMENOrdering Facility: [facility] Address: [address] [place] [address] Performed By: #### 5 8410-2 ####[facility] LABIA [id number] [place] [address] [place] RBC (Bld) [#/Vol] 3.85 10*6/uL Low 4.20-6.00 [facility] Comment on above: Order Comment: Speci men Type: BLOOD SPECIMENOrdering Facility: [facility] Address: [address] [place] [address] Performed By: #### 5 8410-2 ####[facility] LABCLIA [id number] [place] [address] [place] WBC (Bld) [#/Vol] 4.76 10*3/uL Normal 3.70-11.00 [facility] Comment on above: Order Comment: Speci men Type: BLOOD SPECIMENOrdering Facility: [facility] Address: [address] [place] [address] Performed By: #### 5 8410-2 ####[facility] LABCLIA [id number] [place] [address] [place] Erythrocyte distribution width (RBC) [Ratio] 20.1 % High 11.5-15.0 [facility] Comment on above: Order Comment: Speci men Type: BLOOD SPECIMENOrdering Facility: [facility] Address: [address] [place] [address] Performed By: #### 5 8410-2 ####[facility] LABCLIA [id number] [place] [address] [place] Hematocrit (Bld) [Volume fraction] 34.8 % Low 39.0-51.0 [facility] Comment on above: Order Comment: Speci men Type: BLOOD SPECIMENOrdering Facility: [facility] Address: [address] [place] [address] Performed By: #### 5 8410-2 ####[facility] LABCLIA [id number] [place] [address] [place] Hemoglobin (Bld) [Mass/Vol] 10.2 g/dL Low 13.0-17.0 [facility] Comment on above: Order Comment: Speci men Type: BLOOD SPECIMENOrdering Facility: [facility] Address: [address] [place] [address] Performed By: #### 5 8410-2 ####[facility] LABCLIA [id number] [place] [address] [place] MCH (RBC) [Entitic mass] 26.2 pg Normal 26.0-34.0 [facility] Comment on above: Order Comment: Speci men Type: BLOOD SPECIMENOrdering Facility: [facility] Address: [address] [place] [address] Performed By: #### 5 8410-2 ####[facility] LABIA [id number] [place] [address] [place] MCHC (RBC) [Mass/Vol] 29.3 g/dL Low 30.5-36.0 [facility] Comment on above: Order Comment: Speci men Type: BLOOD SPECIMENOrdering Facility: [facility] Address: [address] [place] [address] Performed By: #### 5 8410-2 ####[facility] LABIA [id number] [place] [address] [place] MCV (RBC) [Entitic vol] 89.2 fL Normal 80.0-100.0 [facility] Comment on above: Order Comment: Speci men Type: BLOOD SPECIMENOrdering Facility: [facility] Address: [address] [place] [address] Performed By: #### 5 8410-2 ####[facility] LABCLIA [id number] [place] [address] [place] Nucleated RBC (Bld) [#/Vol] 0.03 10*3/uL High <0.01 [facility] Comment on above: Order Comment: Speci men Type: BLOOD SPECIMENOrdering Facility: [facility] Address: [address] [place] [address] Performed By: #### 5 8410-2 ####[facility] LABCLIA [id number] [place] [address] [place] Platelet mean volume (Bld) [Entitic vol] 10.1 fL Normal 9.0-12.7 [facility] Comment on above: Order Comment: Speci men Type: BLOOD SPECIMENOrdering Facility: [facility] Address: [address] [place] [address] Performed By: #### 5 8410-2 ####[facility] LABIA [id number] [place] [address] [place] Platelets (Bld) [#/Vol] 220 10*3/uL Normal 150-400 [facility] Comment on above: Order Comment: Speci men Type: BLOOD SPECIMENOrdering Facility: [facility] Address: [address] [place] [address] Performed By: #### 5 8410-2 ####[facility] LABIA [id number] [place] [address] [place] RBC (Bld) [#/Vol] 3.90 10*6/uL Low 4.20-6.00 [facility] Comment on above: Order Comment: Speci men Type: BLOOD SPECIMENOrdering Facility: [facility] Address: [address] [place] [address] Performed By: #### 5 8410-2 ####[facility] LABIA [id number] [place] [address] [place] WBC (Bld) [#/Vol] 4.88 10*3/uL Normal 3.70-11.00 [facility] Comment on above: Order Comment: Speci men Type: BLOOD SPECIMENOrdering Facility: [facility] Address: [address] [place] [address] Performed By: #### 5 8410-2 ####[facility] LABIA [id number] [place] [address] [place] CONSULTon 09-23-2024 CONSULT Normal [facility] CONSULT PROGon 09-23-2024 CONSULT PROG Normal [facility] ECHO LIMITEDon 09-23-2024 ECHO LIMITED Normal [facility] POTASSIUMon 09-23-2024 Potassium [Moles/Vol] 3.8 mmol/L Normal 3.7-5.1 [facility] Comment on above: Order Comment: Speci men Type: BLOOD SPECIMENOrdering Facility: [facility] Address: [address] [place] [address] Performed By: #### K 1 ####[facility] LABCLIA [id number] [place] [address] [place] Potassium [Moles/Vol] 3.5 mmol/L Low 3.7-5.1 [facility] Comment on above: Order Comment: Speci men Type: BLOOD SPECIMENOrdering Facility: [facility] Address: [address] [place] [address] Performed By: #### K 1 ####[facility] LABCLIA [id number] [address] [address] [place] Performed By: #### 2 4321-2 ####[facility] LABCLIA [id number] [address] [address] [place] THERAPY NTon 09-23-2024 THERAPY NT Normal [facility] THERAPY NT Normal [facility] ALLIED HEALTHon 09-22-2024 ALLIED HEALTH HNO ID: [id number] Author: FERMIN MIGUEL Chaplain Service: Spiritual Care Author Type: Feed Mill Tender Type: Allied Health Filed: 09/22/2024 11:24 Note Text: Accepted anoint.,bless Normal [facility] APIXABAN ASSAYon 09-22-2024 APIXABAN 166.00 ng/mL Normal [facility] Comment on above: Order Comment: Speci men Type: BLOOD SPECIMENOrdering Facility: [facility] Address: [address] [place] [address] Result Comment: APIX ABAN PEAK AND TROUGH [...] to 572 ng/mLTrough: 41 to 335 ng/mLReference: Jd nguyen al. CPT Pharmacocetrics Syst Pharmacol. 2017;6(5):340-349. Performed By: #### A PIXBN ####[facility] LABCLIA [id number] [place] [address] [place] BIOTIN (VITAMIN B7)on 2024 VITAMIN B7, SERUM OR PLASMA 0.32 ng/mL Normal 0.05-0.83 [facility] Comment on above: Order Comment: Specgregory olvera Type: BLOOD SPECIMENOrdering Facility: [facility] Address: [address] [place] [address] Result Comment: This test was developed and its performance characteristicsdetermined by [employer]. It has not been cleared or approvedby the Food and Drug Administration.Performed by: [facility] [id number] [place] [id number], Sanjai MD Performed By: #### V ITB7 ####[facility] [id number] [place] [address] Basic metabolic 2000 panelon 09-22-2024 Anion gap [Moles/Vol] 19 mmol/L High 8-15 [facility] Comment on above: Order Comment: Speci men Type: BLOOD SPECIMENOrdering Facility: [facility] Address: [address] [place] [address] Performed By: #### 2 4321-2 ####[facility] LABCLIA [id number] [place] [address] [place] Calcium [Mass/Vol] 9.2 mg/dL Normal 8.5-10.2 [facility] Comment on above: Order Comment: Speci men Type: BLOOD SPECIMENOrdering Facility: [facility] Address: [address] [place] [address] Performed By: #### 2 4321-2 ####[facility] LABCLIA [id number] [place] [address] [place] Chloride [Moles/Vol] 96 mmol/L Low 98-107 [facility] Comment on above: Order Comment: Speci men Type: BLOOD SPECIMENOrdering Facility: [facility] Address: [address] [place] [address] Performed By: #### 2 4321-2 ####[facility] LABCLIA [id number] [place] [address] [place] CO2 [Moles/Vol] 20 mmol/L Low 22-30 [facility] Comment on above: Order Comment: Speci men Type: BLOOD SPECIMENOrdering Facility: [facility] Address: [address] [place] [address] Performed By: #### 2 4321-2 ####[facility] LABCLIA [id number] [place] [address] [place] Creatinine [Mass/Vol] 3.87 mg/dL High 0.73-1.22 [facility] Comment on above: Order Comment: Speci men Type: BLOOD SPECIMENOrdering Facility: [facility] Address: [address] [place] [address] Performed By: #### 2 4321-2 ####[facility] LABCLIA [id number] [place] [address] [place] Creatinine and Glomerular filtration rate.predicted panel (S/P/Bld) 15 mL/min/1.73m??? Low >=60 [facility] Comment on above: Order Comment: Dylan olvera Type: BLOOD SPECIMENOrdering Facility: [facility] Address: [address] [place] [address] Result Comment: Etta mated Glomerular Filtration Rate [...] actual GFR. Performed By: #### 2 4321-2 ####[facility] LABCLIA [id number] [place] [address] [place] Glucose [Mass/Vol] 71 mg/dL Low 74-99 [facility] Comment on above: Order Comment: Dylan olvera Type: BLOOD SPECIMENOrdering Facility: [facility] Address: [address] [place] [address] Result Comment: The [place] [employer] (ADA) provides guidance for cutoff [...] Standards of Medical Care in Diabetes 2016, [place] [employer]. Diabetes Care. 2016.39(Suppl 1). Performed By: #### 2 4321-2 ####[facility] LABCLIA [id number] [place] [address] [place] Potassium [Moles/Vol] 4.4 mmol/L Normal 3.7-5.1 [facility] Comment on above: Order Comment: Speci men Type: BLOOD SPECIMENOrdering Facility: [facility] Address: [address] [place] [address] Performed By: #### 2 4321-2 ####[facility] LABCLIA [id number] [place] [address] [place] Sodium [Moles/Vol] 135 mmol/L Low 136-144 [facility] Comment on above: Order Comment: Speci men Type: BLOOD SPECIMENOrdering Facility: [facility] Address: [address] [place] [address] Performed By: #### 2 4321-2 ####[facility] LABCLIA [id number] [place] [address] [place] Urea nitrogen [Mass/Vol] 67 mg/dL High 9-24 [facility] Comment on above: Order Comment: Speci men Type: BLOOD SPECIMENOrdering Facility: [facility] Address: [address] [place] [address] Performed By: #### 2 4321-2 ####[facility] LABIA [id number] [place] [address] [place] CASE MANAGEMon 09-22-2024 CASE MANAGEM Normal [facility] CBC panel Auto (Bld)on 09-22 Erythrocyte distribution width (RBC) [Ratio] 20.2 % High 11.5-15.0 [facility] Comment on above: Order Comment: Speci men Type: BLOOD SPECIMENOrdering Facility: [facility] Address: [address] [place] [address] Performed By: #### 5 8410-2 ####[facility] LABCLIA [id number] [place] [address] [place] Hematocrit (Bld) [Volume fraction] 34.8 % Low 39.0-51.0 [facility] Comment on above: Order Comment: Speci men Type: BLOOD SPECIMENOrdering Facility: [facility] Address: [address] [place] [address] Performed By: #### 5 8410-2 ####[facility] LABCLIA [id number] [place] [address] [place] Hemoglobin (Bld) [Mass/Vol] 10.7 g/dL Low 13.0-17.0 [facility] Comment on above: Order Comment: Speci men Type: BLOOD SPECIMENOrdering Facility: [facility] Address: [address] [place] [address] Performed By: #### 5 8410-2 ####[facility] LABIA [id number] [place] [address] [place] MCH (RBC) [Entitic mass] 27.4 pg Normal 26.0-34.0 [facility] Comment on above: Order Comment: Speci men Type: BLOOD SPECIMENOrdering Facility: [facility] Address: [address] [place] [address] Performed By: #### 5 8410-2 ####[facility] LABIA [id number] [place] [address] [place] MCHC (RBC) [Mass/Vol] 30.7 g/dL Normal 30.5-36.0 [facility] Comment on above: Order Comment: Speci men Type: BLOOD SPECIMENOrdering Facility: [facility] Address: [address] [place] [address] Performed By: #### 5 8410-2 ####[facility] LABIA [id number] [place] [address] [place] MCV (RBC) [Entitic vol] 89.2 fL Normal 80.0-100.0 [facility] Comment on above: Order Comment: Speci men Type: BLOOD SPECIMENOrdering Facility: [facility] Address: [address] [place] [address] Performed By: #### 5 8410-2 ####[facility] LABCLIA [id number] [place] [address] [place] Nucleated RBC (Bld) [#/Vol] 10*3/uL Normal <0.01 [facility] Comment on above: Order Comment: Speci men Type: BLOOD SPECIMENOrdering Facility: [facility] Address: [address] [place] [address] Performed By: #### 5 8410-2 ####[facility] LABIA [id number] [place] [address] [place] Platelet mean volume (Bld) [Entitic vol] 10.0 fL Normal 9.0-12.7 [facility] Comment on above: Order Comment: Speci men Type: BLOOD SPECIMENOrdering Facility: [facility] Address: [address] [place] [address] Performed By: #### 5 8410-2 ####[facility] LABCLIA [id number] [place] [address] [place] Platelets (Bld) [#/Vol] 214 10*3/uL Normal 150-400 [facility] Comment on above: Order Comment: Speci men Type: BLOOD SPECIMENOrdering Facility: [facility] Address: [address] [place] [address] Performed By: #### 5 8410-2 ####[facility] LABIA [id number] [place] [address] [place] RBC (Bld) [#/Vol] 3.90 10*6/uL Low 4.20-6.00 [facility] Comment on above: Order Comment: Speci men Type: BLOOD SPECIMENOrdering Facility: [facility] Address: [address] [place] [address] Performed By: #### 5 8410-2 ####[facility] LABCLIA [id number] [place] [address] [place] WBC (Bld) [#/Vol] 5.21 10*3/uL Normal 3.70-11.00 [facility] Comment on above: Order Comment: Speci men Type: BLOOD SPECIMENOrdering Facility: [facility] Address: [address] [place] [address] Performed By: #### 5 8410-2 ####[facility] LABCLIA [id number] [place] [id number] [place] CONSULTon 09-22-2024 CONSULT Normal [facility] CONSULT Normal [facility] Creatinine Unsp time (U) [Ma ss/Vol]on 09-22-2024 Creatinine (U) [Mass/Vol] 27.0 mg/dL Normal 20.0-300.0 [facility] Comment on above: Order Comment: Speci men Type: URINE SPECIMENOrdering Facility: [facility] Address: [address] [place] [address] Performed By: #### 3 5678-2, UUNR, 89457-6 ####[facility] LABIA [id number] [place] [id number] [place] NM PET/CT CARD PERF REST/STR ESSon 09-22-2024 NM PET/CT CARD PERF REST/STRESS Normal [facility] NM PET/CT CARDIAC VIABILITYo n 09-22-2024 NM PET/CT CARDIAC VIABILITY Normal [facility] NURSING PROGon 09-22-2024 NURSING PROG Normal [facility] PTT, ANTICOAGULANT THERAPYon 09-22-2024 aPTT Coag (PPP) [Time] 42.8 s High 23.0-32.4 [facility] Comment on above: Order Comment: Speci men Type: BLOOD SPECIMENOrdering Facility: [facility] Address: [address] [place] [address] Performed By: #### P TTAC ####[facility] LABIA [id number] [place] [id number] [place] Sodium ?Tm Ur-sCncon 025 Sodium Unsp time (U) [Moles/Vol] 92 mmol/L Normal 14-216 [facility] Comment on above: Order Comment: Speci men Type: URINE SPECIMENOrdering Facility: [facility] Address: [address] [place] [address] Performed By: #### 3 5678-2, GERARDO, 83925-3 ####[facility] LABCLIA [id number] [address] [address] [place] THERAPY NTon 09-22-2024 THERAPY NT Normal [facility] THERAPY NT Normal [facility] THERAPY NT Normal [facility] UREA NITROGEN, RANDOM URINEo n 09-22-2024 UREA NITROGEN,UR,RAN 224 mg/dL Normal 140-1500 [facility] Comment on above: Order Comment: Speci men Type: URINE SPECIMENOrdering Facility: [facility] Address: [address] [place] [address] Performed By: #### 3 5678-2, GERARDO, 99070-7 ####[facility] LABCLIA [id number] [place] [address] [place] Basic metabolic 2000 panelon 09-21-2024 Anion gap [Moles/Vol] 17 mmol/L High 8-15 [facility] Comment on above: Order Comment: Speci men Type: BLOOD SPECIMENOrdering Facility: [facility] Address: [address] [place] [address] Performed By: #### 2 4321-2, 48795-6, 74144-2, 2275-4 ####[facility] LABCLIA [id number] [place] [id number] [place] Calcium [Mass/Vol] 8.9 mg/dL Normal 8.5-10.2 [facility] Comment on above: Order Comment: Speci men Type: BLOOD SPECIMENOrdering Facility: [facility] Address: [address] [place] [address] Performed By: #### 2 4321-2, 87631-1, 86813-0, 2275-4 ####[facility] LABCLIA [id number] [place] [address] [place] Chloride [Moles/Vol] 96 mmol/L Low 98-107 [facility] Comment on above: Order Comment: Speci men Type: BLOOD SPECIMENOrdering Facility: [facility] Address: [address] [place] [address] Performed By: #### 2 4321-2, 48894-4, 85971-6, 6-4 ####[facility] LABCLIA [id number] [place] [address] [place] CO2 [Moles/Vol] 22 mmol/L Normal 22-30 [facility] Comment on above: Order Comment: Speci men Type: BLOOD SPECIMENOrdering Facility: [facility] Address: [address] [place] [address] Performed By: #### 2 4321-2, 55670-1, 28848-0, 2275-4 ####[facility] LABCLIA [id number] [place] [address] [place] Creatinine [Mass/Vol] 3.53 mg/dL High 0.73-1.22 [facility] Comment on above: Order Comment: Speci men Type: BLOOD SPECIMENOrdering Facility: [facility] Address: [address] [place] [address] Performed By: #### 2 4321-2, 51417-5, 10174-1, 2275-4 ####[facility] LABCLIA [id number] [place] [address] [place] Creatinine and Glomerular filtration rate.predicted panel (S/P/Bld) 17 mL/min/1.73m??? Low >=60 [facility] Comment on above: Order Comment: Speci men Type: BLOOD SPECIMENOrdering Facility: [facility] Address: [address] [place] [address] Result Comment: Etta mated Glomerular Filtration Rate [...] actual GFR. Performed By: #### 2 4321-2, 92806-7, 81434-4, 2275- ####[facility] LABCLIA [id number] [address] [address] [place] Glucose [Mass/Vol] 95 mg/dL Normal 74-99 [facility] Comment on above: Order Comment: Dylan olvera Type: BLOOD SPECIMENOrdering Facility: [facility] Address: [address] [place] [address] Result Comment: The [place] [employer] (ADA) provides guidance for cutoff [...] Standards of Medical Care in Diabetes 2016, [place] [employer]. Diabetes Care. 2016.39(Suppl 1). Performed By: #### 2 4321-2, 93504-7, , 2275-12 ####[facility] LABCLIA [id number] [address] [address] [place] Potassium [Moles/Vol] 4.8 mmol/L Normal 3.7-5.1 [facility] Comment on above: Order Comment: Dylan olvera Type: BLOOD SPECIMENOrdering Facility: [facility] Address: [address] [place] [address] Performed By: #### 2 4321-2, 25796-9, 40029-0, 2275-4 ####[facility] LABCLIA [id number] [place] [address] [place] Sodium [Moles/Vol] 135 mmol/L Low 136-144 [facility] Comment on above: Order Comment: Speci men Type: BLOOD SPECIMENOrdering Facility: [facility] Address: [address] [place] [address] Performed By: #### 2 4321-2, 41064-3, 45201-8, 6-4 ####[facility] LABCLIA [id number] [place] [address] [place] Urea nitrogen [Mass/Vol] 58 mg/dL High 9-24 [facility] Comment on above: Order Comment: Speci men Type: BLOOD SPECIMENOrdering Facility: [facility] Address: [address] [place] [address] Performed By: #### 2 4321-2, 63433-8, 07127-7, 6-4 ####[facility] LABCLIA [id number] [place] [address] [place] CASE MANAGEMon 09-21-2024 CASE MANAGEM Normal [facility] CBC panel Auto (Bld)on 09-21 Erythrocyte distribution width (RBC) [Ratio] 20.1 % High 11.5-15.0 [facility] Comment on above: Order Comment: Speci men Type: BLOOD SPECIMENOrdering Facility: [facility] Address: [address] [place] [address] Performed By: #### 5 8410-2 ####[facility] LABCLIA [id number] [place] [address] [place] Hematocrit (Bld) [Volume fraction] 35.5 % Low 39.0-51.0 [facility] Comment on above: Order Comment: Speci men Type: BLOOD SPECIMENOrdering Facility: [facility] Address: [address] [place] [address] Performed By: #### 5 8410-2 ####[facility] LABCLIA [id number] [place] [address] [place] Hemoglobin (Bld) [Mass/Vol] 10.4 g/dL Low 13.0-17.0 [facility] Comment on above: Order Comment: Speci men Type: BLOOD SPECIMENOrdering Facility: [facility] Address: [address] [place] [address] Performed By: #### 5 8410-2 ####[facility] LABCLIA [id number] [place] [address] [place] MCH (RBC) [Entitic mass] 26.5 pg Normal 26.0-34.0 [facility] Comment on above: Order Comment: Speci men Type: BLOOD SPECIMENOrdering Facility: [facility] Address: [address] [place] [address] Performed By: #### 5 8410-2 ####[facility] LABIA [id number] [place] [address] [place] MCHC (RBC) [Mass/Vol] 29.3 g/dL Low 30.5-36.0 [facility] Comment on above: Order Comment: Speci men Type: BLOOD SPECIMENOrdering Facility: [facility] Address: [address] [place] [address] Performed By: #### 5 8410-2 ####[facility] LABIA [id number] [place] [address] [place] MCV (RBC) [Entitic vol] 90.3 fL Normal 80.0-100.0 [facility] Comment on above: Order Comment: Speci men Type: BLOOD SPECIMENOrdering Facility: [facility] Address: [address] [place] [address] Performed By: #### 5 8410-2 ####[facility] LABCLIA [id number] [place] [address] [place] Nucleated RBC (Bld) [#/Vol] 10*3/uL Normal <0.01 [facility] Comment on above: Order Comment: Speci men Type: BLOOD SPECIMENOrdering Facility: [facility] Address: [address] [place] [address] Performed By: #### 5 8410-2 ####[facility] LABIA [id number] [place] [address] [place] Platelet mean volume (Bld) [Entitic vol] 10.7 fL Normal 9.0-12.7 [facility] Comment on above: Order Comment: Speci men Type: BLOOD SPECIMENOrdering Facility: [facility] Address: [address] [place] [address] Performed By: #### 5 8410-2 ####[facility] LABIA [id number] [place] [address] [place] Platelets (Bld) [#/Vol] 227 10*3/uL Normal 150-400 [facility] Comment on above: Order Comment: Speci men Type: BLOOD SPECIMENOrdering Facility: [facility] Address: [address] [place] [address] Performed By: #### 5 8410-2 ####[facility] LABIA [id number] [place] [address] [place] RBC (Bld) [#/Vol] 3.93 10*6/uL Low 4.20-6.00 [facility] Comment on above: Order Comment: Speci men Type: BLOOD SPECIMENOrdering Facility: [facility] Address: [address] [place] [address] Performed By: #### 5 8410-2 ####[facility] LABIA [id number] [place] [address] [place] WBC (Bld) [#/Vol] 5.87 10*3/uL Normal 3.70-11.00 [facility] Comment on above: Order Comment: Speci men Type: BLOOD SPECIMENOrdering Facility: [facility] Address: [address] [place] [address] Performed By: #### 5 8410-2 ####[facility] LABCLIA [id number] [address] [address] [place] Ferritin SerPl-mCncon 2024 Ferritin [Mass/Vol] 162.0 ng/mL Normal 30.3-565.7 [facility] Comment on above: Order Comment: Speci men Type: BLOOD SPECIMENOrdering Facility: [facility] Address: [address] [place] [address] Performed By: #### 2 4321-2, 91193-0, 33372-8, 2275-4 ####[facility] LABCLIA [id number] [place] [id number] [place] Iron and Iron binding capaci ty panelon 09-21-2024 Iron [Mass/Vol] 26 ug/dL Low 41-186 [facility] Comment on above: Order Comment: Speci men Type: BLOOD SPECIMENOrdering Facility: [facility] Address: [address] [place] [address] Performed By: #### 2 4321-2, 08437-9, 03414-6, 2275-12 ####[facility] LABIA [id number] [place] [address] [place] Iron binding capacity [Mass/Vol] 359 ug/dL Normal 232-386 [facility] Comment on above: Order Comment: Speci men Type: BLOOD SPECIMENOrdering Facility: [facility] Address: [address] [place] [address] Performed By: #### 2 4321-2, 18087-2, 86426-4, 2275- ####[facility] LABCLIA [id number] [place] [id number] [place] Iron/TIBC [Molar ratio] 7.2 % Low 15.0-57.0 [facility] Comment on above: Order Comment: Speci men Type: BLOOD SPECIMENOrdering Facility: [facility] Address: [address] [place] [address] Performed By: #### 2 4321-2, 94259-1, 79178-8, 6-4 ####[facility] LABCLIA [id number] [place] [id number] [place] Magnesium SerPl-mCncon 09-21 Magnesium [Mass/Vol] 2.6 mg/dL High 1.7-2.3 [facility] Comment on above: Order Comment: Speci men Type: BLOOD SPECIMENOrdering Facility: [facility] Address: [address] [place] [id number] Performed By: #### 2 4321-2, 77007-0, 90385-9, 6-4 ####[facility] LABCLIA [id number] [place] [address] [place] O2 SATURATION (POC)on 2024 %HbO2 (Oxyhemoglobin)(POC T) 60.1 % [facility] Additional Comments (POCT) Venous 60%-85%; Arterial 95%-98% [facility] Comment (POCT) No anatomical site g iven %HBO2 ref range [facility] Hemoglobin (Bld) [Mass/Vol] 9.8 g/dL Abnormal 13.0 - 17.0 g/dL [facility] Interpretation and review of laboratory results Abnormal [facility] Location:[employer] [facility], [address] [place] [address] POINT OF CARE [facility] PT EDon 09-21-2024 PT ED Normal [facility] PT panel Coag (PPP)on 2024 INR Coag (PPP) [Relative time] 1.7 {INR} High 0.9-1.3 [facility] Comment on above: Order Comment: Speci men Type: BLOOD SPECIMENOrdering Facility: [facility] Address: [address] [place], [place] [id number] Result Comment: Loulou min K Antagonist (VKA) Therapeutic Range: INR 2 to 3 (Target INR of 2.5)Note: For patients treated with VKA drugs, such as warfarin, the [place] [employer] 2012 Guideline recommends [...] al. Chest 2012, 141:7S-47SNishimura RA, et al. [facility] 2017, 70: 252-289 Performed By: #### 3 4528-0, PTTAC ####[facility] LABCLIA [id number] [place] [address] [place] PT Coag (PPP) [Time] 17.9 s High 9.7-13.0 [facility] Comment on above: Order Comment: Speci men Type: BLOOD SPECIMENOrdering Facility: [facility] Address: [address] [place] [address] Performed By: #### 3 4528-0, PTTAC ####[facility] LABCLIA [id number] [place] [address] [place] PTT, ANTICOAGULANT THERAPYon 09-21-2024 aPTT Coag (PPP) [Time] 131.2 s High 23.0-32.4 [facility] Comment on above: Order Comment: Speci men Type: BLOOD SPECIMENOrdering Facility: [facility] Address: [address] [place] [address] Result Comment: Shania call checked for clot.Result rechecked. Performed By: #### P TTAC ####[facility] LABCLIA [id number] [place] [address] [place] aPTT Coag (PPP) [Time] 107.7 s High 23.0-32.4 [facility] Comment on above: Order Comment: Speci men Type: BLOOD SPECIMENOrdering Facility: [facility] Address: [address] [place] [address] Result Comment: Samp le checked for clot.Result rechecked. Performed By: #### 3 4528-0, PTTAC ####[facility] LABCLIA [id number] [place] [address] [place] THERAPY NTon 09-21-2024 THERAPY NT Normal [facility] TYPE + SCREENon 09-21-2024 ABO O Normal [facility] Comment on above: Order Comment: Speci men Type: BLOOD SPECIMENOrdering Facility: [facility] Address: [address] [place] [address] Performed By: #### T SCR ####[facility] BLOOD BANKCLIA [id number] [place] [address] [place] Rh Nom (Bld) Positive Normal [facility] Comment on above: Order Comment: Speci men Type: BLOOD SPECIMENOrdering Facility: [facility] Address: [address] [place] [address] Performed By: #### T SCR ####[facility] BLOOD BANKIA [id number] [place] [address] [place] TYPE AND SCREEN EXPIRATION 09/24/2024 23:59 Normal [facility] Comment on above: Order Comment: Speci men Type: BLOOD SPECIMENOrdering Facility: [facility] Address: [address] [place] [address] Performed By: #### T SCR ####[facility] BLOOD BANKIA [id number] [place] [address] [place] US KIDNEY/BLADDERon 09-21-19 25 US KIDNEY/BLADDER Normal [facility] Urinalysis complete panel (U )on 09-21-2024 Bacteria LM.HPF (Urine sed) [#/Area] Negative Normal Negative [facility] Comment on above: Order Comment: Speci men Type: URINE SPECIMENOrdering Facility: [facility] Address: [address] [place] [address] Performed By: #### 2 4356-8 ####[facility] LABCLIA [id number] [place] [address] [place] Bilirubin Ql (U) Negative Normal Negative [facility] Comment on above: Order Comment: Speci men Type: URINE SPECIMENOrdering Facility: [facility] Address: [address] [place] [address] Performed By: #### 2 4356-8 ####[facility] LABCLIA [id number] [place] [address] [place] Clarity (Unsp spec) Clear Normal Clear [facility] Comment on above: Order Comment: Speci men Type: URINE SPECIMENOrdering Facility: [facility] Address: [address] [place] [address] Performed By: #### 2 4356-8 ####[facility] LABCLIA [id number] [place] [address] [place] Color (U) Yellow Normal Yellow [facility] Comment on above: Order Comment: Speci men Type: URINE SPECIMENOrdering Facility: [facility] Address: [address] [place] [address] Performed By: #### 2 4356-8 ####[facility] LABCLIA [id number] [place] [address] [place] Epithelial cells LM.HPF (Urine sed) [#/Area] None Seen Normal [facility] Comment on above: Order Comment: Speci men Type: URINE SPECIMENOrdering Facility: [facility] Address: [address] [place] [address] Performed By: #### 2 4356-8 ####[facility] LABCLIA [id number] [place] [address] [place] Glucose Test strip (U) [Mass/Vol] Negative Normal Negative [facility] Comment on above: Order Comment: Speci men Type: URINE SPECIMENOrdering Facility: [facility] Address: [address] [place] [address] Performed By: #### 2 4356-8 ####[facility] LABCLIA [id number] [place] [address] [place] Hemoglobin Ql (U) 2+ Abnormal Negative [facility] Comment on above: Order Comment: Speci men Type: URINE SPECIMENOrdering Facility: [facility] Address: [address] [place] [address] Performed By: #### 2 4356-8 ####[facility] LABCLIA [id number] [place] [address] [place] Hyaline casts (Urine sed) [#/Area] 4-10 /LPF Abnormal 0 /LPF [facility] Comment on above: Order Comment: Speci men Type: URINE SPECIMENOrdering Facility: [facility] Address: [address] [place] [address] Performed By: #### 2 4356-8 ####[facility] LABCLIA [id number] [place] [address] [place] Ketones Ql (U) Negative Normal Negative [facility] Comment on above: Order Comment: Speci men Type: URINE SPECIMENOrdering Facility: [facility] Address: [address] [place] [address] Performed By: #### 2 4356-8 ####[facility] LABCLIA [id number] [place] [address] [place] Leukocyte esterase Test strip Ql (U) Negative Normal Negative [facility] Comment on above: Order Comment: Speci men Type: URINE SPECIMENOrdering Facility: [facility] Address: [address] [place] [address] Performed By: #### 2 4356-8 ####[facility] LABCLIA [id number] [place] [address] [place] Nitrite Ql (U) Negative Normal Negative [facility] Comment on above: Order Comment: Speci men Type: URINE SPECIMENOrdering Facility: [facility] Address: [address] [place] [address] Performed By: #### 2 4356-8 ####[facility] LABCLIA [id number] [place] [address] [place] pH (U) 6.5 [pH] Normal <8.5 [facility] Comment on above: Order Comment: Speci men Type: URINE SPECIMENOrdering Facility: [facility] Address: [address] [place] [address] Performed By: #### 2 4356-8 ####[facility] LABIA [id number] [place] [address] [place] Protein (U) [Mass/Vol] Trace Abnormal Negative [facility] Comment on above: Order Comment: Speci men Type: URINE SPECIMENOrdering Facility: [facility] Address: [address] [place] [address] Performed By: #### 2 4356-8 ####[facility] LABIA [id number] [place] [address] [place] RBC LM.HPF (Urine sed) [#/Area] 6-10 /HPF Abnormal 0-2 /HPF [facility] Comment on above: Order Comment: Speci men Type: URINE SPECIMENOrdering Facility: [facility] Address: [address] [place] [address] Performed By: #### 2 4356-8 ####[facility] LABIA [id number] [place] [address] [place] Specific gravity (U) [Rel density] 1.010 Normal 1.005-1.030 [facility] Comment on above: Order Comment: Speci men Type: URINE SPECIMENOrdering Facility: [facility] Address: [address] [place] [address] Performed By: #### 2 4356-8 ####[facility] LABIA [id number] [place] [address] [place] Urobilinogen Ql (U) 0.2 EU/dL Normal 0.2-1.0 EU/dL [facility] Comment on above: Order Comment: Speci men Type: URINE SPECIMENOrdering Facility: [facility] Address: [address] [place] [address] Performed By: #### 2 4356-8 ####[facility] LABIA [id number] [place] [address] [place] WBC LM.HPF (Urine sed) [#/Area] 0-5 /HPF Normal 0-5 /HPF [facility] Comment on above: Order Comment: Speci men Type: URINE SPECIMENOrdering Facility: [facility] Address: [address] [place] [address] Performed By: #### 2 4356-8 ####[facility] LABIA [id number] [place] [address] [place] APIXABAN ASSAYon 09-20-2024 APIXABAN 442 ng/mL Normal [facility] Comment on above: Order Comment: Speci men Type: BLOOD SPECIMENOrdering Facility: [facility] Address: [address] [place] [address] Result Comment: APIX ABAN PEAK AND TROUGH [...] 572 ng/mLTrough: 41 to 335 ng/mLReference: Desire [facility] Pharmacocetrics Syst Pharmacol. 2017;6(5):340-349. Performed By: #### A PIXBN ####[facility] LABCLIA [id number] [place] [address] [place] Basic metabolic 2000 panelon 09-20-2024 Anion gap [Moles/Vol] 15 mmol/L Normal 8-15 [facility] Comment on above: Order Comment: Speci men Type: BLOOD SPECIMENOrdering Facility: [facility] Address: [address] [place] [address] Performed By: #### 3 3762-6, 75953-2, ####[facility] LABIA [id number] [place] [address] [place] Calcium [Mass/Vol] 9.0 mg/dL Normal 8.5-10.2 [facility] Comment on above: Order Comment: Speci men Type: BLOOD SPECIMENOrdering Facility: [facility] Address: [address] [place] [address] Performed By: #### 3 3762-6, 29289-6, ####[facility] LABIA [id number] [place] [address] [place] Chloride [Moles/Vol] 97 mmol/L Low 98-107 [facility] Comment on above: Order Comment: Speci men Type: BLOOD SPECIMENOrdering Facility: [facility] Address: [address] [place] [address] Performed By: #### 3 3762-6, 16377-0, ####[facility] LABCLIA [id number] [place] [id number] [place] CO2 [Moles/Vol] 23 mmol/L Normal 22-30 [facility] Comment on above: Order Comment: Speci men Type: BLOOD SPECIMENOrdering Facility: [facility] Address: [address] [place] [address] Performed By: #### 3 3762-6, 55068-3, ####[facility] LABCLIA [id number] [place] [address] [place] Creatinine [Mass/Vol] 2.79 mg/dL High 0.73-1.22 [facility] Comment on above: Order Comment: Speci men Type: BLOOD SPECIMENOrdering Facility: [facility] Address: [address] [place] [address] Performed By: #### 3 3762-6, 36528-3, ####[facility] LABCLIA [id number] [place] [address] [place] Creatinine and Glomerular filtration rate.predicted panel (S/P/Bld) 22 mL/min/1.73m??? Low >=60 [facility] Comment on above: Order Comment: Speci men Type: BLOOD SPECIMENOrdering Facility: [facility] Address: [address] [place] [address] Result Comment: Etta mated Glomerular Filtration Rate [...] actual GFR. Performed By: #### 3 3762-6, 00647-5, ####[facility] LABCLIA [id number] [place] [address] [place] Glucose [Mass/Vol] 116 mg/dL High 74-99 [facility] Comment on above: Order Comment: Speci men Type: BLOOD SPECIMENOrdering Facility: [facility] Address: [address] [place] [address] Result Comment: The [place] [employer] (ADA) provides guidance for cutoff [...] Standards of Medical Care in Diabetes 2016, [place] [employer]. Diabetes Care. 2016.39(Suppl 1). Performed By: #### 3 3762-6, 36040-9, ####[facility] LABCLIA [id number] [place] [address] [place] Potassium [Moles/Vol] 4.3 mmol/L Normal 3.7-5.1 [facility] Comment on above: Order Comment: Speci men Type: BLOOD SPECIMENOrdering Facility: [facility] Address: [address] [place] [address] Performed By: #### 3 3762-6, , ####[facility] LABCLIA [id number] [place] [address] [place] Sodium [Moles/Vol] 135 mmol/L Low 136-144 [facility] Comment on above: Order Comment: Speci men Type: BLOOD SPECIMENOrdering Facility: [facility] Address: [address] [place] [address] Performed By: #### 3 3762-6, , ####[facility] LABCLIA [id number] [place] [id number] [place] Urea nitrogen [Mass/Vol] 46 mg/dL High 9-24 [facility] Comment on above: Order Comment: Speci men Type: BLOOD SPECIMENOrdering Facility: [facility] Address: [address] [place] [address] Performed By: #### 3 3762-6, 66345-3, 12858-1 ####[facility] LABCLIA [id number] [place] [address] [place] CBC panel Auto (Bld)on 09-20 Erythrocyte distribution width (RBC) [Ratio] 20.1 % High 11.5-15.0 [facility] Comment on above: Order Comment: Speci men Type: BLOOD SPECIMENOrdering Facility: [facility] Address: [address] [place] [address] Performed By: #### 5 8410-2 ####[facility] LABIA [id number] [place] [address] [place] Hematocrit (Bld) [Volume fraction] 33.9 % Low 39.0-51.0 [facility] Comment on above: Order Comment: Speci men Type: BLOOD SPECIMENOrdering Facility: [facility] Address: [address] [place] [address] Performed By: #### 5 8410-2 ####[facility] LABIA [id number] [place] [address] [place] Hemoglobin (Bld) [Mass/Vol] 10.4 g/dL Low 13.0-17.0 [facility] Comment on above: Order Comment: Speci men Type: BLOOD SPECIMENOrdering Facility: [facility] Address: [address] [place] [address] Performed By: #### 5 8410-2 ####[facility] LABIA [id number] [place] [address] [place] MCH (RBC) [Entitic mass] 27.7 pg Normal 26.0-34.0 [facility] Comment on above: Order Comment: Speci men Type: BLOOD SPECIMENOrdering Facility: [facility] Address: [address] [place] [address] Performed By: #### 5 8410-2 ####[facility] LABCLIA [id number] [place] [address] [place] MCHC (RBC) [Mass/Vol] 30.7 g/dL Normal 30.5-36.0 [facility] Comment on above: Order Comment: Speci men Type: BLOOD SPECIMENOrdering Facility: [facility] Address: [address] [place] [address] Performed By: #### 5 8410-2 ####[facility] LABIA [id number] [place] [address] [place] MCV (RBC) [Entitic vol] 90.2 fL Normal 80.0-100.0 [facility] Comment on above: Order Comment: Speci men Type: BLOOD SPECIMENOrdering Facility: [facility] Address: [address] [place] [address] Performed By: #### 5 8410-2 ####[facility] [id number] [place] [address] [place] Nucleated RBC (Bld) [#/Vol] 10*3/uL Normal <0.01 [facility] Comment on above: Order Comment: Speci men Type: BLOOD SPECIMENOrdering Facility: [facility] Address: [address] [place] [address] Performed By: #### 5 8410-2 ####[facility] LABIA [id number] [place] [address] [place] Platelet mean volume (Bld) [Entitic vol] 10.2 fL Normal 9.0-12.7 [facility] Comment on above: Order Comment: Speci men Type: BLOOD SPECIMENOrdering Facility: [facility] Address: [address] [place] [address] Performed By: #### 5 8410-2 ####[facility] LABIA [id number] [place] [address] [place] Platelets (Bld) [#/Vol] 223 10*3/uL Normal 150-400 [facility] Comment on above: Order Comment: Speci men Type: BLOOD SPECIMENOrdering Facility: [facility] Address: [address] [place] [address] Performed By: #### 5 8410-2 ####[facility] LABIA [id number] [place] [address] [place] RBC (Bld) [#/Vol] 3.76 10*6/uL Low 4.20-6.00 [facility] Comment on above: Order Comment: Speci men Type: BLOOD SPECIMENOrdering Facility: [facility] Address: [address] [place] [address] Performed By: #### 5 8410-2 ####[facility] LABIA [id number] [place] [address] [place] WBC (Bld) [#/Vol] 5.17 10*3/uL Normal 3.70-11.00 [facility] Comment on above: Order Comment: Speci men Type: BLOOD SPECIMENOrdering Facility: [facility] Address: [address] [place] [address] Performed By: #### 5 8410-2 ####[facility] [id number] [place] [address] [place] Fact Xa PPP-aCncon 5 Coagulation factor X activated act Coag Qn (PPP) >1.50 High <0.10 [facility] Comment on above: Order Comment: Speci men Type: BLOOD SPECIMENOrdering Facility: [facility] Address: [address] [place] [address] Result Comment: Extr shawanda high heparin anti-Xa [...] IU/mL. Performed By: #### 3 217-7, PTTAC ####[facility] LABCLIA [id number] [place] [address] [place] Coagulation factor X activated act Coag Qn (PPP) >1.50 High <0.10 [facility] Comment on above: Order Comment: Dylan olvera Type: BLOOD SPECIMENOrdering Facility: [facility] Address: [address] [place] [address] Result Comment: Extr shawanda high heparin anti-Xa [...] IU/mL. Performed By: #### 3 217-7, PTTAC ####[facility] LABCLIA [id number] [place] [address] [place] Magnesium SerPl-mCncon 09-20 Magnesium [Mass/Vol] 2.5 mg/dL High 1.7-2.3 [facility] Comment on above: Order Comment: Dylan olvera Type: BLOOD SPECIMENOrdering Facility: [facility] Address: [address] [place] [address] Performed By: #### 3 3762-6, 65537-2, 38291-6 ####[facility] LABIA [id number] [place] [address] [place] NT-proBNP SerPl-mCncon 09-20 Natriuretic peptide.B prohormone N-Terminal [Mass/Vol] 77260 pg/mL High <450 [facility] Comment on above: Order Comment: Speci men Type: BLOOD SPECIMENOrdering Facility: [facility] Address: [address] [place] [address] Performed By: #### 3 3762-6, 96860-9, 80496-6 ####[facility] LABIA [id number] [place] [address] [place] PTT, ANTICOAGULANT THERAPYon 09-20-2024 aPTT Coag (PPP) [Time] 42.3 s High 23.0-32.4 [facility] Comment on above: Order Comment: Speci men Type: BLOOD SPECIMENOrdering Facility: [facility] Address: [address] [place] [address] Performed By: #### P TTAC ####[facility] [id number] [place] [address] [place] aPTT Coag (PPP) [Time] 33.6 s High 23.0-32.4 [facility] Comment on above: Order Comment: Speci men Type: BLOOD SPECIMENOrdering Facility: [facility] Address: [address] [place] [address] Performed By: #### 3 217-7, PTTAC ####[facility] [id number] [place] [address] [place] aPTT Coag (PPP) [Time] 97.9 s High 23.0-32.4 [facility] Comment on above: Order Comment: Speci men Type: BLOOD SPECIMENOrdering Facility: [facility] Address: [address] [place] [address] Result Comment: Samp le checked for clot.Result rechecked. Performed By: #### 3 217-7, PTTAC ####[facility] LABCLIA [id number] [place] [id number] [place] aPTT Coag (PPP) [Time] s High 23.0-32.4 [facility] Comment on above: Order Comment: Speci men Type: BLOOD SPECIMENOrdering Facility: [facility] Address: [address] [place] [address] Result Comment: Samp le checked for clot.Result rechecked. Performed By: #### P TTAC ####[facility] LABIA [id number] [place] [address] [place] THERAPY NTon 09-20-2024 THERAPY NT Normal [facility] THERAPY NT Normal [facility] Basic metabolic 2000 panelon 09-19-2024 Anion gap [Moles/Vol] 15 mmol/L Normal 8-15 [facility] Comment on above: Order Comment: Speci men Type: BLOOD SPECIMENOrdering Facility: [facility] Address: [address] [place] [address] Performed By: #### 2 4321-2, 75337-7, 3051-0, 3024-7 ####[facility] LABIA [id number] [place] [address] [place] Calcium [Mass/Vol] 8.9 mg/dL Normal 8.5-10.2 [facility] Comment on above: Order Comment: Speci men Type: BLOOD SPECIMENOrdering Facility: [facility] Address: [address] [place] [address] Performed By: #### 2 4321-2, 31422-9, 3051-0, 3024-7 ####[facility] LABIA [id number] [place] [id number] [place] Chloride [Moles/Vol] 98 mmol/L Normal 98-107 [facility] Comment on above: Order Comment: Speci men Type: BLOOD SPECIMENOrdering Facility: [facility] Address: [address] [place], [place] [address] Performed By: #### 2 4321-2, 75117-5, 305-0, 302-7 ####[facility] LABIA [id number] [place] [id number] [place] CO2 [Moles/Vol] 23 mmol/L Normal 22-30 [facility] Comment on above: Order Comment: Speci men Type: BLOOD SPECIMENOrdering Facility: [facility] Address: [address] [place], [place] [address] Performed By: #### 2 4321-2, 08716-3, 305-0, 302-7 ####[facility] [id number] [place] [address] [place] Creatinine [Mass/Vol] 2.28 mg/dL High 0.73-1.22 [facility] Comment on above: Order Comment: Speci men Type: BLOOD SPECIMENOrdering Facility: [facility] Address: [address] [place] [address] Performed By: #### 2 4321-2, 60666-9, 305-0, 3027 ####[facility] [id number] [place] [address] [place] Creatinine and Glomerular filtration rate.predicted panel (S/P/Bld) 28 mL/min/1.73m??? Low >=60 [facility] Comment on above: Order Comment: Rozi men Type: BLOOD SPECIMENOrdering Facility: [facility] Address: [address] [place] [address] Result Comment: Etta mated Glomerular Filtration Rate [...] actual GFR. Performed By: #### 2 4321-2, 52585-4, 305-0, 302-7 ####[facility] LABCLIA [id number] [address] [address] [place] Glucose [Mass/Vol] 107 mg/dL High 74-99 [facility] Comment on above: Order Comment: Speci men Type: BLOOD SPECIMENOrdering Facility: [facility] Address: [address] [place] [address] Result Comment: The [place] [employer] (ADA) provides guidance for cutoff [...] Standards of Medical Care in Diabetes 2016, [place] [employer]. Diabetes Care. 2016.39(Suppl 1). Performed By: #### 2 1-2, 29161-6, 305-0, 302-7 ####[facility] LABIA [id number] [place] [id number] [place] Potassium [Moles/Vol] 4.1 mmol/L Normal 3.7-5.1 [facility] Comment on above: Order Comment: Speci men Type: BLOOD SPECIMENOrdering Facility: [facility] [facility] Address: [address] [place] [address] Performed By: #### 2 1-2, , 305-0, 302-7 ####[facility] LABIA [id number] [place] [address] [place] Sodium [Moles/Vol] 136 mmol/L Normal 136-144 [facility] Comment on above: Order Comment: Speci men Type: BLOOD SPECIMENOrdering Facility: [facility] Address: [address] [place] [address] Performed By: #### 2 4321-2, 20660-7, 3051-0, 3024-7 ####[facility] LABIA [id number] [place] [address] [place] Urea nitrogen [Mass/Vol] 41 mg/dL High 9-24 [facility] Comment on above: Order Comment: Speci men Type: BLOOD SPECIMENOrdering Facility: [facility] Address: [address] [place] [address] Performed By: #### 2 4321-2, 21009-8, 3051-0, 3024-7 ####[facility] LABIA [id number] [place] [address] [place] CBC panel Auto (Bld)on 09-19 Erythrocyte distribution width (RBC) [Ratio] 20.0 % High 11.5-15.0 [facility] Comment on above: Order Comment: Speci men Type: BLOOD SPECIMENOrdering Facility: [facility] Address: [address] [place] [address] Performed By: #### 5 8410-2 ####[facility] LABIA [id number] [place] [address] [place] Hematocrit (Bld) [Volume fraction] 33.3 % Low 39.0-51.0 [facility] Comment on above: Order Comment: Speci men Type: BLOOD SPECIMENOrdering Facility: [facility] Address: [address] [place] [address] Performed By: #### 5 8410-2 ####[facility] LABIA [id number] [place] [id number] [place] Hemoglobin (Bld) [Mass/Vol] 9.9 g/dL Low 13.0-17.0 [facility] Comment on above: Order Comment: Speci men Type: BLOOD SPECIMENOrdering Facility: [facility] Address: [address] [place] [address] Performed By: #### 5 8410-2 ####[facility] LABCLIA [id number] [place] [address] [place] MCH (RBC) [Entitic mass] 26.4 pg Normal 26.0-34.0 [facility] Comment on above: Order Comment: Speci men Type: BLOOD SPECIMENOrdering Facility: [facility] Address: [address] [place] [address] Performed By: #### 5 8410-2 ####[facility] LABIA [id number] [place] [address] [place] MCHC (RBC) [Mass/Vol] 29.7 g/dL Low 30.5-36.0 [facility] Comment on above: Order Comment: Speci men Type: BLOOD SPECIMENOrdering Facility: [facility] Address: [address] [place] [address] Performed By: #### 5 8410-2 ####[facility] LABIA [id number] [place] [address] [place] MCV (RBC) [Entitic vol] 88.8 fL Normal 80.0-100.0 [facility] Comment on above: Order Comment: Speci men Type: BLOOD SPECIMENOrdering Facility: [facility] Address: [address] [place] [address] Performed By: #### 5 8410-2 ####[facility] LABIA [id number] [place] [address] [place] Nucleated RBC (Bld) [#/Vol] 10*3/uL Normal <0.01 [facility] Comment on above: Order Comment: Speci men Type: BLOOD SPECIMENOrdering Facility: [facility] Address: [address] [place] [address] Performed By: #### 5 8410-2 ####[facility] LABIA [id number] [place] [address] [place] Platelet mean volume (Bld) [Entitic vol] 9.7 fL Normal 9.0-12.7 [facility] Comment on above: Order Comment: Speci men Type: BLOOD SPECIMENOrdering Facility: [facility] Address: [address] [place] [address] Performed By: #### 5 8410-2 ####[facility] LABIA [id number] [place] [address] [place] Platelets (Bld) [#/Vol] 211 10*3/uL Normal 150-400 [facility] Comment on above: Order Comment: Speci men Type: BLOOD SPECIMENOrdering Facility: [facility] Address: [address] [place] [address] Performed By: #### 5 8410-2 ####[facility] LABIA [id number] [place] [address] [place] RBC (Bld) [#/Vol] 3.75 10*6/uL Low 4.20-6.00 [facility] Comment on above: Order Comment: Speci men Type: BLOOD SPECIMENOrdering Facility: [facility] Address: [address] [place] [address] Performed By: #### 5 8410-2 ####[facility] LABIA [id number] [place] [address] [place] WBC (Bld) [#/Vol] 5.36 10*3/uL Normal 3.70-11.00 [facility] Comment on above: Order Comment: Speci men Type: BLOOD SPECIMENOrdering Facility: [facility] Address: [address] [place] [address] Performed By: #### 5 8410-2 ####[facility] LABCLIA [id number] [place] [address] [place] Lactate (Bld) [Moles/Vol]on 09-19-2024 Lactate [Moles/Vol] 1.9 mmol/L Normal 0.5-2.2 [facility] Comment on above: Order Comment: Dylan olvera Type: BLOOD SPECIMENOrdering Facility: [facility] Address: [address] [place] [address] Performed By: #### 3 2693-4 ####[facility] LABCLIA [id number] [place] [address] [place] Magnesium SerPl-mCncon 09-19 Magnesium [Mass/Vol] 2.4 mg/dL High 1.7-2.3 [facility] Comment on above: Order Comment: Dylan olvera Type: BLOOD SPECIMENOrdering Facility: [facility] Address: [address] [place] [address] Performed By: #### 2 4321-2, 31673-4, 3051-0, 3024-7 ####[facility] LABCLIA [id number] [place] [address] [place] NUTRITIONon 09-19-2024 NUTRITION Normal [facility] PT panel Coag (PPP)on 2024 INR Coag (PPP) [Relative time] 1.6 {INR} High 0.9-1.3 [facility] Comment on above: Order Comment: Dylan olvera Type: BLOOD SPECIMENOrdering Facility: [facility] Address: [address] [place] [address] Result Comment: Loulou min K Antagonist (VKA) Therapeutic Range: INR 2 to 3 (Target INR of 2.5)Note: For patients treated with VKA drugs, such as warfarin, the [place] [employer] 2012 Guideline recommends [...] al. Chest 2012, 141:7S-47SNishimura RA, et al. [facility] 2017, 70: 252-289 Performed By: #### 3 4528-0, 64871-9 ####[facility] LABCLIA [id number] [place] [address] [place] PT Coag (PPP) [Time] 17.1 s High 9.7-13.0 [facility] Comment on above: Order Comment: Speci men Type: BLOOD SPECIMENOrdering Facility: [facility] Address: [address] [place] [address] Performed By: #### 3 4528-0, 93158-5 ####[facility] LABIA [id number] [place] [address] [place] PTT, ANTICOAGULANT THERAPYon 09-19-2024 aPTT Coag (PPP) [Time] 108.5 s High 23.0-32.4 [facility] Comment on above: Order Comment: Speci men Type: BLOOD SPECIMENOrdering Facility: [facility] Address: [address] [place] [address] Result Comment: Resu lt rechecked.Sample checked for clot. Performed By: #### P TTAC ####[facility] LABIA [id number] [place] [address] [place] aPTT Coag (PPP) [Time] s High 23.0-32.4 [facility] Comment on above: Order Comment: Speci men Type: BLOOD SPECIMENOrdering Facility: [facility] Address: [address] [place] [address] Result Comment: Samp le checked for clot.Result rechecked. Performed By: #### P TTAC ####[facility] LABCLIA [id number] [place] [address] [place] T3Free SerPl-mCncon 09-19-19 25 Free T3 [Mass/Vol] 1.5 pg/mL Low 2.3-4.1 [facility] Comment on above: Order Comment: Speci men Type: BLOOD SPECIMENOrdering Facility: [facility] Address: [address] [place] [address] Performed By: #### 2 4321-2, 97453-2, 3051-0, 3024-7 ####[facility] LABIA [id number] [place] [address] [place] T4 Free SerPl-mCncon 025 Free T4 [Mass/Vol] 1.0 ng/dL Normal 0.9-1.7 [facility] Comment on above: Order Comment: Speci men Type: BLOOD SPECIMENOrdering Facility: [facility] Address: [address] [place] [address] Performed By: #### 2 4321-2, 91426-9, 305-0, 3024-7 ####[facility] LABIA [id number] [place] [address] [place] aPTT PPPon 09-19-2024 aPTT Coag (PPP) [Time] 33.6 s High 23.0-32.4 [facility] Comment on above: Order Comment: Speci men Type: BLOOD SPECIMENOrdering Facility: [facility] Address: [address] [place] [address] Performed By: #### 3 4528-0, 94185-2 ####[facility] [id number] [place] [address] [place] CARDIAC IMPLANTABLE DEVICE C HECKOrdered By: Leeann Blount on 09-18-2024 Atrial Tachy Statistic AT/AF [place] Percent 33.00 [facility] Work Phone: Battery Status OK [facility] Work Phone: Bj Setting AT Mode Switch Rate 170 [facility] Work Phone: Bj Setting Lower Rate Limit 50 [facility] Work Phone: [phone] Bj Setting Maximum Sensor Rate 130 [facility] Work Phone: [phone] Bj Setting Maximum Tracking Rate 130 [facility] Work Phone: [phone] Bj Setting Mode (NBG Code) DDDR [facility] Work Phone: [phone] Bj Setting PAV Delay 200 [facility] Work Phone: [phone] Bj Setting ABDULLAHI Delay 170 [facility] Work Phone: [phone] Bj Statistic RA Percent Paced 2.00 [facility] Work Phone: [phone] Bj Statistic RV Percent Paced 8.00 [facility] Work Phone: [phone] Date Time Interrogation Session [facility] Work Phone: [phone] Implantable Lead Implant Date [id number] [facility] Work Phone: [phone] Implantable Lead Implant Date 20190316 [facility] Work Phone: [phone] Implantable Lead Location Right Atrium [facility] Work Phone: [phone] Implantable Lead Location Right Ventricle [facility] Work Phone: [phone] Implantable Lead Model 7741 [employer] MRI [facility] Work Phone: [phone] Implantable Lead Model 675 [facility] Work Phone: [phone] Implantable Lead Serial Number [id number] [facility] Work Phone: [phone] Implantable Lead Serial Number [id number] [facility] Work Phone: [phone] Implantable Pulse Generator Implant Date 20190324 [facility] Work Phone: [phone] Implantable Pulse Generator [employer] [place] [employer] [facility] Work Phone: [phone] Implantable Pulse Generator Model D142 [facility] Work Phone: [phone] Implantable Pulse Generator Serial Number [id number] [facility] Work Phone: [phone] Implantable Pulse Generator Type Defibrillator [facility] Work Phone: [phone] Lead Channel Impedance Value 652 [facility] Work Phone: [phone] Lead Channel Impedance Value 370 [facility] Work Phone: Lead Channel Sensing Intrinsic Amplitude 3.100 [place] [employer] Work Phone: Lead Channel Sensing Intrinsic Amplitude 14.800 [place] [employer] Work Phone: Lead Channel Setting Sensing Sensitivity 0.25 [place] [employer] Work Phone: Lead Channel Setting Sensing Sensitivity 0.30 [facility] Work Phone: Rate 1 240 [place] [employer] Work Phone: Rate 1 200 [place] [employer] Work Phone: Rate 1 175 [facility] Work Phone: Shock Measured Impedance 32 [facility] [employer] Phone: Therapy Statistic Recent ATP Delivered 25 [facility] Work Phone: Therapy Statistic Recent Shocks Aborted 0 [facility] Work Phone: Therapy Statistic Recent Shocks Delivered 2 [facility] Work Phone: Zone ID 1 [place] [employer] Work Phone: Zone ID 2 [facility] Work Phone: Zone ID 3 [facility] [employer] Phone: Zone Setting Type Category VF [facility] Work Phone: Zone Setting Type Category VT [facility] Work Phone: Zone Setting Type Category VT1 [facility] Work Phone: [facility] Work Phone: CARDIAC IMPLANTABLE DEVICE Marisa Sainz 09-18-2024 Leeann Blount MD - 09/18/2024 In-Office Device Evaluation DUAL LEAD ICD EVALUATION: *Room: [facility] * Presenting Rhythm: /VS * Underlying Rhythm: [...] Docket/PDF found below under Scanned Documents . [facility] CASE MGT INIT ASSESon 2024 CASE MGT INIT ASSES Normal [facility] CBC panel Auto (Bld)on 09-18 Erythrocyte distribution width (RBC) [Ratio] 19.9 % High 11.5-15.0 [facility] Comment on above: Order Comment: Dylan olvera Type: BLOOD SPECIMENOrdering Facility: [facility] Address: [address] [place] [address] Performed By: #### 5 8410-2 ####[facility] LABCLIA [id number] [place] [address] [place] Hematocrit (Bld) [Volume fraction] 34.0 % Low 39.0-51.0 [facility] Comment on above: Order Comment: Dylan olvera Type: BLOOD SPECIMENOrdering Facility: [facility] Address: [address] [place] [address] Performed By: #### 5 8410-2 ####[facility] LABCLIA [id number] [place] [address] [place] Hemoglobin (Bld) [Mass/Vol] 10.2 g/dL Low 13.0-17.0 [facility] Comment on above: Order Comment: Dylan olvera Type: BLOOD SPECIMENOrdering Facility: [facility] Address: [address] [place] [address] Performed By: #### 5 8410-2 ####[facility] LABIA [id number] [place] [address] [place] MCH (RBC) [Entitic mass] 27.2 pg Normal 26.0-34.0 [facility] Comment on above: Order Comment: Speci men Type: BLOOD SPECIMENOrdering Facility: [facility] Address: [address] [place] [address] Performed By: #### 5 8410-2 ####[facility] [id number] [place] [address] [place] MCHC (RBC) [Mass/Vol] 30.0 g/dL Low 30.5-36.0 [facility] Comment on above: Order Comment: Speci men Type: BLOOD SPECIMENOrdering Facility: [facility] Address: [address] [place] [address] Performed By: #### 5 8410-2 ####[facility] [id number] [place] [address] [place] MCV (RBC) [Entitic vol] 90.7 fL Normal 80.0-100.0 [facility] Comment on above: Order Comment: Speci men Type: BLOOD SPECIMENOrdering Facility: [facility] Address: [address] [place] [address] Performed By: #### 5 8410-2 ####[facility] [id number] [place] [address] [place] Nucleated RBC (Bld) [#/Vol] 10*3/uL Normal <0.01 [facility] Comment on above: Order Comment: Speci men Type: BLOOD SPECIMENOrdering Facility: [facility] Address: [address] [place] [address] Performed By: #### 5 8410-2 ####[facility] [id number] [place] [address] [place] Platelet mean volume (Bld) [Entitic vol] 10.2 fL Normal 9.0-12.7 [facility] Comment on above: Order Comment: Speci men Type: BLOOD SPECIMENOrdering Facility: [facility] Address: [address] [place] [address] Performed By: #### 5 8410-2 ####[facility] LABCLIA [id number] [place] [address] [place] Platelets (Bld) [#/Vol] 223 10*3/uL Normal 150-400 [facility] Comment on above: Order Comment: Speci men Type: BLOOD SPECIMENOrdering Facility: [facility] Address: [address] [place] [address] Performed By: #### 5 8410-2 ####[facility] LABCLIA [id number] [place] [address] [place] RBC (Bld) [#/Vol] 3.75 10*6/uL Low 4.20-6.00 [facility] Comment on above: Order Comment: Speci men Type: BLOOD SPECIMENOrdering Facility: [facility] Address: [address] [place] [address] Performed By: #### 5 8410-2 ####[facility] LABCLIA [id number] [place] [address] [place] WBC (Bld) [#/Vol] 5.36 10*3/uL Normal 3.70-11.00 [facility] Comment on above: Order Comment: Speci men Type: BLOOD SPECIMENOrdering Facility: [facility] Address: [address] [place] [address] Performed By: #### 5 8410-2 ####[facility] LABCLIA [id number] [place] [address] [place] CONSULTon 09-18-2024 CONSULT Normal [facility] CONSULT Normal [facility] Comprehensive metabolic 2000 panelon 09-18-2024 Albumin [Mass/Vol] 3.4 g/dL Low 3.9-4.9 [facility] Comment on above: Order Comment: Speci men Type: BLOOD SPECIMENOrdering Facility: [facility] Address: [address] [place] [address] Performed By: #### 3 016-3, , ####[facility] LABCLIA [id number] [place] [address] [place] ALP [Catalytic activity/Vol] 108 U/L Normal 38-113 [facility] Comment on above: Order Comment: Speci men Type: BLOOD SPECIMENOrdering Facility: [facility] Address: [address] [place] [address] Performed By: #### 3 016-3, , ####[facility] LABCLIA [id number] [place] [address] [place] ALT [Catalytic activity/Vol] 17 U/L Normal 10-54 [facility] Comment on above: Order Comment: Speci men Type: BLOOD SPECIMENOrdering Facility: [facility] Address: [address] [place] [address] Performed By: #### 3 016-3, , ####[facility] LABCLIA [id number] [place] [address] [place] Anion gap [Moles/Vol] 14 mmol/L Normal 8-15 [facility] Comment on above: Order Comment: Speci men Type: BLOOD SPECIMENOrdering Facility: [facility] Address: [address] [place] [address] Performed By: #### 3 016-3, , ####[facility] LABCLIA [id number] [place] [address] [place] AST [Catalytic activity/Vol] 25 U/L Normal 14-40 [facility] Comment on above: Order Comment: Speci men Type: BLOOD SPECIMENOrdering Facility: [facility] Address: [address] [place] [address] Performed By: #### 3 016-3, 35499-0, ####[facility] LABCLIA [id number] [place] [address] [place] Bilirubin [Mass/Vol] 0.8 mg/dL Normal 0.2-1.3 [facility] Comment on above: Order Comment: Speci men Type: BLOOD SPECIMENOrdering Facility: [facility] Address: [address] [place] [address] Performed By: #### 3 016-3, 25850-3, ####[facility] LABCLIA [id number] [place] [address] [place] Calcium [Mass/Vol] 9.0 mg/dL Normal 8.5-10.2 [facility] Comment on above: Order Comment: Speci men Type: BLOOD SPECIMENOrdering Facility: [facility] Address: [address] [place] [address] Performed By: #### 3 016-3, 83369-9, ####[facility] LABCLIA [id number] [place] [address] [place] Chloride [Moles/Vol] 101 mmol/L Normal 98-107 [facility] Comment on above: Order Comment: Speci men Type: BLOOD SPECIMENOrdering Facility: [facility] Address: [address] [place] [address] Performed By: #### 3 016-3, 64913-9, ####[facility] LABCLIA [id number] [place] [address] [place] CO2 [Moles/Vol] 25 mmol/L Normal 22-30 [facility] Comment on above: Order Comment: Speci men Type: BLOOD SPECIMENOrdering Facility: [facility] Address: [address] [place] [address] Performed By: #### 3 016-3, 92325-4, ####[facility] LABIA [id number] [place] [address] [place] Creatinine [Mass/Vol] 2.16 mg/dL High 0.73-1.22 [facility] Comment on above: Order Comment: Speci men Type: BLOOD SPECIMENOrdering Facility: [facility] Address: [address] [place] [address] Performed By: #### 3 016-3, 32405-0, ####[facility] LABIA [id number] [place] [address] [place] Creatinine and Glomerular filtration rate.predicted panel (S/P/Bld) 30 mL/min/1.73m??? Low >=60 [facility] Comment on above: Order Comment: Dylan olvera Type: BLOOD SPECIMENOrdering Facility: [facility] Address: [address] [place] [address] Result Comment: Etta mated Glomerular Filtration Rate [...] reflect actual GFR. Performed By: #### 3 016-3, 01694-7, ####[facility] LABIA [id number] [place] [address] [place] Glucose [Mass/Vol] 99 mg/dL Normal 74-99 [facility] Comment on above: Order Comment: Rozi men Type: BLOOD SPECIMENOrdering Facility: [facility] Address: [address] [place] [address] Result Comment: The [place] [employer] (ADA) provides guidance for cutoff [...] Standards of Medical Care in Diabetes 2016, [place] [employer]. Diabetes Care. 2016.39(Suppl 1). Performed By: #### 3 016-3, , ####[facility] LABCLIA [id number] [place] [address] [place] Potassium [Moles/Vol] 3.9 mmol/L Normal 3.7-5.1 [facility] Comment on above: Order Comment: Speci men Type: BLOOD SPECIMENOrdering Facility: [facility] Address: [address] [place] [address] Performed By: #### 3 016-3, , ####[facility] LABCLIA [id number] [place] [address] [place] Protein [Mass/Vol] 6.5 g/dL Normal 6.3-8.0 [facility] Comment on above: Order Comment: Speci men Type: BLOOD SPECIMENOrdering Facility: [facility] Address: [address] [place] [address] Performed By: #### 3 016-3, , ####[facility] LABCLIA [id number] [place] [id number] [place] Sodium [Moles/Vol] 140 mmol/L Normal 136-144 [facility] Comment on above: Order Comment: Speci men Type: BLOOD SPECIMENOrdering Facility: [facility] Address: [address] [place] [address] Performed By: #### 3 016-3, 96689-3, ####[facility] LABCLIA [id number] [place] [address] [place] Urea nitrogen [Mass/Vol] 40 mg/dL High 9-24 [facility] Comment on above: Order Comment: Dylan olvera Type: BLOOD SPECIMENOrdering Facility: [facility] Address: [address] [place] [address] Performed By: #### 3 016-3, 18725-6, 70575-3 ####[facility] LABCLIA [id number] [place] [address] [place] ECG COMPLETEon 09-18-2024 ECG COMPLETE Normal [facility] HbA1c (Bld)on 09-18-2024 Average glucose Estimated from glycated hemoglobin (Bld) [Mass/Vol] 111 mg/dL Normal [facility] Comment on above: Order Comment: Dylan olvera Type: BLOOD SPECIMENOrdering Facility: [facility] Address: [address] [place] [address] Result Comment: eAG: (Estimated average glucose) is a calculated value from HgbA1c and is distribution sales representative of the average blood glucose level in the last 2-3 month period. Performed By: #### 5 5454-3 ####[facility] LABIA [id number] [place] [address] [place] HbA1c (Bld) [Mass fraction] 5.5 % Normal 4.3-5.6 [facility] Comment on above: Order Comment: Dylan olvera Type: BLOOD SPECIMENOrdering Facility: [facility] Address: [address] [place] [address] Result Comment: [place] Diabetes Association guidelines indicate that patients with HgbA1c in the range 5.7-6.4% are at increased risk for development of diabetes, and intervention by lifestyle modification may be beneficial. HgbA1c greater or equal to 6.5% is considered diagnostic of diabetes. Performed By: #### 5 5454-3 ####[facility] LABCLIA [id number] [place] [address] [place] Magnesium SerPl-mCncon 09-18 Magnesium [Mass/Vol] 2.4 mg/dL High 1.7-2.3 [facility] Comment on above: Order Comment: Speci men Type: BLOOD SPECIMENOrdering Facility: [facility] Address: [address] [place] [address] Performed By: #### 3 016-3, 75226-2, 68802-6 ####[facility] LABCLIA [id number] [place] [address] [place] No Panel InformationOrdered By: Leeann Blount on 09-18-2024 Implantable Lead Connection Status Connected [facility] Work Phone: [phone] Implantable Lead [employer] [facility] Work Phone: [phone] Lead Channel Setting Pacing Amplitude 2.000 [facility] Work Phone: [phone] Lead Channel Setting Pacing Pulse Width 0.5 [facility] Work Phone: [phone] Therapies 41J, 41J [facility] Work Phone: [phone] Zone Setting Status On [facility] Work Phone: [phone] TSH SerPl-aCncon 09-18-2024 TSH Qn 5.910 m[IU]/L High 0.270-4.200 [facility] Comment on above: Order Comment: Speci men Type: BLOOD SPECIMENOrdering Facility: [facility] Address: [address] [place] [address] Performed By: #### 3 016-3, 30824-8, ####[facility] LABCLIA [id number] [place] [address] [place] URINALYSIS, DIPSTICK ONLYon 09-18-2024 Bilirubin Ql (U) Negative Normal Negative [facility] Comment on above: Order Comment: Speci men Type: URINE SPECIMENOrdering Facility: [facility] Address: [address] [place] [address] Performed By: #### U A ####[facility] LABCLIA [id number] [place] [address] [place] Clarity (Unsp spec) Clear Normal Clear Reji [facility] Comment on above: Order Comment: Speci men Type: URINE SPECIMENOrdering Facility: [facility] Address: [address] [place] [address] Performed By: #### U A ####[facility] LABCLIA [id number] [place] [address] [place] Color (U) Yellow Normal Yellow [facility] Comment on above: Order Comment: Speci men Type: URINE SPECIMENOrdering Facility: [facility] Address: [address] [place] [address] Performed By: #### U A ####[facility] LABCLIA [id number] [place] [address] [place] Glucose Test strip (U) [Mass/Vol] Negative Normal Negative [facility] Comment on above: Order Comment: Speci men Type: URINE SPECIMENOrdering Facility: [facility] Address: [address] [place] [address] Performed By: #### U A ####[facility] LABCLIA [id number] [place] [address] [place] Hemoglobin Ql (U) Negative Normal Negative [facility] Comment on above: Order Comment: Speci men Type: URINE SPECIMENOrdering Facility: [facility] Address: [address] [place] [address] Performed By: #### U A ####[facility] LABCLIA [id number] [place] [address] [place] Ketones Ql (U) Negative Normal Negative [facility] Comment on above: Order Comment: Speci men Type: URINE SPECIMENOrdering Facility: [facility] Address: [address] [place] [address] Performed By: #### U A ####[facility] LABCLIA [id number] [place] [address] [place] Leukocyte esterase Test strip Ql (U) Negative Normal Negative [facility] Comment on above: Order Comment: Speci men Type: URINE SPECIMENOrdering Facility: [facility] Address: [address] [place] [address] Performed By: #### U A ####[facility] LABCLIA [id number] [place] [address] [place] Nitrite Ql (U) Negative Normal Negative [facility] Comment on above: Order Comment: Speci men Type: URINE SPECIMENOrdering Facility: [facility] Address: [address] [place] [address] Performed By: #### U A ####[facility] LABIA [id number] [place] [address] [place] pH (U) 7.5 [pH] Normal <8.5 [facility] Comment on above: Order Comment: Speci men Type: URINE SPECIMENOrdering Facility: [facility] Address: [address] [place] [address] Performed By: #### U A ####[facility] LABIA [id number] [place] [address] [place] Protein (U) [Mass/Vol] 1+ Abnormal Negative [facility] Comment on above: Order Comment: Speci men Type: URINE SPECIMENOrdering Facility: [facility] Address: [address] [place] [address] Performed By: #### U A ####[facility] LABCLIA [id number] [place] [address] [place] Specific gravity (U) [Rel density] 1.012 Normal 1.005-1.030 [facility] Comment on above: Order Comment: Speci men Type: URINE SPECIMENOrdering Facility: [facility] Address: [address] [place] [address] Performed By: #### U A ####[facility] LABCLIA [id number] [place] [address] [place] Urobilinogen Ql (U) 1.0 EU/dL Normal 0.2-1.0 EU/dL [facility] Comment on above: Order Comment: Speci men Type: URINE SPECIMENOrdering Facility: [facility] Address: [address] [place] [address] Performed By: #### U A ####[facility] LABIA [id number] [place] [address] [place] CBC W Auto Differential pane l (Bld)on 09-17-2024 Basophils (Bld) [#/Vol] 0.03 10*3/uL Normal <0.11 [facility] Comment on above: Order Comment: Speci men Type: BLOOD SPECIMENOrdering Facility: [facility] Address: [address] [place] [address] Performed By: #### 5 7021-8 ####[facility] LABIA [id number] [place] [address] [place] Basophils/100 WBC (Bld) 0.5 % Normal [facility] Comment on above: Order Comment: Speci men Type: BLOOD SPECIMENOrdering Facility: [facility] Address: [address] [place] [address] Performed By: #### 5 7021-8 ####[facility] LABIA [id number] [place] [address] [place] Differential cell count method Nom (Bld) Auto Normal [facility] Comment on above: Order Comment: Speci men Type: BLOOD SPECIMENOrdering Facility: [facility] Address: [address] [place] [address] Performed By: #### 5 7021-8 ####[facility] LABCLIA [id number] [place] [address] [place] Eosinophils (Bld) [#/Vol] 0.17 10*3/uL Normal <0.46 [facility] Comment on above: Order Comment: Speci men Type: BLOOD SPECIMENOrdering Facility: [facility] Address: [address] [place] [address] Performed By: #### 5 7021-8 ####[facility] LABIA [id number] [place] [address] [place] Eosinophils/100 WBC (Bld) 3.1 % Normal [facility] Comment on above: Order Comment: Speci men Type: BLOOD SPECIMENOrdering Facility: [facility] Address: [address] [place] [address] Performed By: #### 5 7021-8 ####[facility] LABIA [id number] [place] [address] [place] Erythrocyte distribution width (RBC) [Ratio] 19.9 % High 11.5-15.0 [facility] Comment on above: Order Comment: Speci men Type: BLOOD SPECIMENOrdering Facility: [facility] Address: [address] [place] [address] Performed By: #### 5 7021-8 ####[facility] LABIA [id number] [place] [address] [place] Hematocrit (Bld) [Volume fraction] 34.6 % Low 39.0-51.0 [facility] Comment on above: Order Comment: Speci men Type: BLOOD SPECIMENOrdering Facility: [facility] Address: [address] [place] [address] Performed By: #### 5 7021-8 ####[facility] LABIA [id number] [place] [address] [place] Hemoglobin (Bld) [Mass/Vol] 10.7 g/dL Low 13.0-17.0 [facility] Comment on above: Order Comment: Speci men Type: BLOOD SPECIMENOrdering Facility: [facility] Address: [address] [place] [address] Performed By: #### 5 7021-8 ####[facility] LABCLIA [id number] [place] [address] [place] Immature granulocytes (Bld) [#/Vol] 0.03 10*3/uL Normal <0.10 [facility] Comment on above: Order Comment: Speci men Type: BLOOD SPECIMENOrdering Facility: [facility] Address: [address] [place] [address] Performed By: #### 5 7021-8 ####[facility] LABCLIA [id number] [place] [address] [place] Immature granulocytes/100 WBC (Bld) 0.5 % Normal [facility] Comment on above: Order Comment: Speci men Type: BLOOD SPECIMENOrdering Facility: [facility] Address: [address] [place] [address] Performed By: #### 5 7021-8 ####[facility] LABCLIA [id number] [place] [address] [place] Lymphocytes (Bld) [#/Vol] 0.76 10*3/uL Low 1.00-4.00 [facility] Comment on above: Order Comment: Speci men Type: BLOOD SPECIMENOrdering Facility: [facility] Address: [address] [place] [address] Performed By: #### 5 7021-8 ####[facility] LABCLIA [id number] [place] [address] [place] Lymphocytes/100 WBC (Bld) 13.8 % Normal [facility] Comment on above: Order Comment: Speci men Type: BLOOD SPECIMENOrdering Facility: [facility] Address: [address] [place] [address] Performed By: #### 5 7021-8 ####[facility] LABCLIA [id number] [place] [address] [place] MCH (RBC) [Entitic mass] 27.6 pg Normal 26.0-34.0 [facility] Comment on above: Order Comment: Speci men Type: BLOOD SPECIMENOrdering Facility: [facility] Address: [address] [place] [address] Performed By: #### 5 7021-8 ####[facility] LABIA [id number] [place] [address] [place] MCHC (RBC) [Mass/Vol] 30.9 g/dL Normal 30.5-36.0 [facility] Comment on above: Order Comment: Speci men Type: BLOOD SPECIMENOrdering Facility: [facility] Address: [address] [place] [address] Performed By: #### 5 7021-8 ####[facility] [id number] [place] [address] [place] MCV (RBC) [Entitic vol] 89.2 fL Normal 80.0-100.0 [facility] Comment on above: Order Comment: Speci men Type: BLOOD SPECIMENOrdering Facility: [facility] Address: [address] [place] [address] Performed By: #### 5 7021-8 ####[facility] [id number] [place] [address] [place] Monocytes (Bld) [#/Vol] 0.55 10*3/uL Normal <0.87 [facility] Comment on above: Order Comment: Speci men Type: BLOOD SPECIMENOrdering Facility: [facility] Address: [address] [place] [address] Performed By: #### 5 7021-8 ####[facility] LABIA [id number] [place] [address] [place] Monocytes/100 WBC (Bld) 10.0 % Normal [facility] Comment on above: Order Comment: Speci men Type: BLOOD SPECIMENOrdering Facility: [facility] Address: [address] [place] [address] Performed By: #### 5 7021-8 ####[facility] LABCLIA [id number] [place] [address] [place] Neutrophils (Bld) [#/Vol] 3.97 10*3/uL Normal 1.45-7.50 [facility] Comment on above: Order Comment: Speci men Type: BLOOD SPECIMENOrdering Facility: [facility] Address: [address] [place] [address] Performed By: #### 5 7021-8 ####[facility] LABCLIA [id number] [place] [address] [place] Neutrophils/100 WBC (Bld) 72.1 % Normal [facility] Comment on above: Order Comment: Speci men Type: BLOOD SPECIMENOrdering Facility: [facility] Address: [address] [place] [address] Performed By: #### 5 7021-8 ####[facility] LABCLIA [id number] [place] [address] [place] Nucleated RBC (Bld) [#/Vol] 10*3/uL Normal <0.01 [facility] Comment on above: Order Comment: Speci men Type: BLOOD SPECIMENOrdering Facility: [facility] Address: [address] [place] [address] Performed By: #### 5 7021-8 ####[facility] LABCLIA [id number] [place] [address] [place] Nucleated RBC/100 WBC (Bld) [Ratio] 0.0 /100 WBC Normal [facility] Comment on above: Order Comment: Speci men Type: BLOOD SPECIMENOrdering Facility: [facility] Address: [address] [place] [address] Performed By: #### 5 7021-8 ####[facility] LABCLIA [id number] [place] [address] [place] Platelet mean volume (Bld) [Entitic vol] 9.7 fL Normal 9.0-12.7 [facility] Comment on above: Order Comment: Speci men Type: BLOOD SPECIMENOrdering Facility: [facility] Address: [address] [place] [address] Performed By: #### 5 7021-8 ####[facility] LABCLIA [id number] [place] [address] [place] Platelets (Bld) [#/Vol] 217 10*3/uL Normal 150-400 [facility] Comment on above: Order Comment: Speci men Type: BLOOD SPECIMENOrdering Facility: [facility] Address: [address] [place] [address] Performed By: #### 5 7021-8 ####[facility] LABCLIA [id number] [place] [address] [place] RBC (Bld) [#/Vol] 3.88 10*6/uL Low 4.20-6.00 [facility] Comment on above: Order Comment: Speci men Type: BLOOD SPECIMENOrdering Facility: [facility] Address: [address] [place] [address] Performed By: #### 5 7021-8 ####[facility] LABCLIA [id number] [place] [address] [place] WBC (Bld) [#/Vol] 5.51 10*3/uL Normal 3.70-11.00 [facility] Comment on above: Order Comment: Speci men Type: BLOOD SPECIMENOrdering Facility: [facility] Address: [address] [place] [address] Performed By: #### 5 7021-8 ####[facility] LABCLIA [id number] [place] [address] [place] CNPNon 09-17-2024 CNPN Normal [facility] Comprehensive metabolic 2000 panelon 09-17-2024 Albumin [Mass/Vol] 3.4 g/dL Low 3.9-4.9 [facility] Comment on above: Order Comment: Speci men Type: BLOOD SPECIMENOrdering Facility: [facility] Address: [address] [place] [address] Performed By: #### 2 4323-8, 62743-3, [id number], 18521-2 ####[facility] LABCLIA [id number] [place] [address] [place] ALP [Catalytic activity/Vol] 102 U/L Normal 38-113 [facility] Comment on above: Order Comment: Speci men Type: BLOOD SPECIMENOrdering Facility: [facility] Address: [address] [place] [address] Performed By: #### 2 4323-8, 88881-1, [id number], 35209-1 ####[facility] LABCLIA [id number] [place] [address] [place] ALT [Catalytic activity/Vol] 17 U/L Normal 10-54 [facility] Comment on above: Order Comment: Speci men Type: BLOOD SPECIMENOrdering Facility: [facility] Address: [address] [place] [address] Performed By: #### 2 4323-8, 84351-6, [id number], 73867-4 ####[facility] LABCLIA [id number] [place] [address] [place] Anion gap [Moles/Vol] 13 mmol/L Normal 8-15 [facility] Comment on above: Order Comment: Speci men Type: BLOOD SPECIMENOrdering Facility: [facility] Address: [address] [place] [address] Performed By: #### 2 4323-8, 65586-8, [id number], 95416-2 ####[facility] LABCLIA [id number] [facility] [place] [id number] [place] AST [Catalytic activity/Vol] 24 U/L Normal 14-40 [facility] Comment on above: Order Comment: Speci men Type: BLOOD SPECIMENOrdering Facility: [facility] Address: [address] [place], [place] [address] Performed By: #### 2 4323-8, 25263-0, RFP2559, 56163-0 ####[facility] LABCLIA [id number] [address] [address] [place] Bilirubin [Mass/Vol] 1.3 mg/dL Normal 0.2-1.3 [facility] Comment on above: Order Comment: Speci men Type: BLOOD SPECIMENOrdering Facility: [facility] Address: [address] [place] [address] Performed By: #### 2 4323-8, 06967-2, [id number], 50321-5 ####[facility] LABCLIA [id number] [place] [address] [place] Calcium [Mass/Vol] 9.1 mg/dL Normal 8.5-10.2 [facility] Comment on above: Order Comment: Speci men Type: BLOOD SPECIMENOrdering Facility: [facility] Address: [address] [place] [address] Performed By: #### 2 4323-8, 84016-8, [id number], 93202-0 ####[facility] LABCLIA [id number] [place] [address] [place] Chloride [Moles/Vol] 99 mmol/L Normal 98-107 [facility] Comment on above: Order Comment: Speci men Type: BLOOD SPECIMENOrdering Facility: [facility] Address: [address] [place], [place] [address] Performed By: #### 2 4323-8, 11194-9, [id number], 56491-2 ####[facility] LABCLIA [id number] [facility] [address] [address] [place] CO2 [Moles/Vol] 27 mmol/L Normal 22-30 [facility] Comment on above: Order Comment: Speci men Type: BLOOD SPECIMENOrdering Facility: [facility] Address: [address] [place] [address] Performed By: #### 2 4323-8, 64697-0, SAL8734, 95351-5 ####[facility] LABCLIA [id number] [place] [address] [place] Creatinine [Mass/Vol] 2.04 mg/dL High 0.73-1.22 [facility] Comment on above: Order Comment: Speci men Type: BLOOD SPECIMENOrdering Facility: [facility] Address: [address] [place] [address] Performed By: #### 2 4323-8, 72269-1, KFE6560, 51657-6 ####[facility] LABCLIA [id number] [place] [address] [place] Creatinine and Glomerular filtration rate.predicted panel (S/P/Bld) 32 mL/min/1.73m??? Low >=60 [facility] Comment on above: Order Comment: Speci men Type: BLOOD SPECIMENOrdering Facility: [facility] Address: [address] [place] [address] Result Comment: Etta mated Glomerular Filtration Rate [...] actual GFR. Performed By: #### 2 4323-8, 94023-4, [id number], 57536-5 ####[facility] LABCLIA [id number] [place] [address] [place] Glucose [Mass/Vol] 92 mg/dL Normal 74-99 [facility] Comment on above: Order Comment: Speci men Type: BLOOD SPECIMENOrdering Facility: [facility] Address: [address] [place] [address] Result Comment: The [place] [employer] (ADA) provides guidance for cutoff [...] Standards of Medical Care in Diabetes 2016, [place] [employer]. Diabetes Care. 2016.39(Suppl 1). Performed By: #### 2 4323-8, 45765-6, FYO6377, 22550-4 ####[facility] LABCLIA [id number] [place] [address] [place] Potassium [Moles/Vol] 3.4 mmol/L Low 3.7-5.1 [facility] Comment on above: Order Comment: Speci men Type: BLOOD SPECIMENOrdering Facility: [facility] Address: [address] [place] [address] Performed By: #### 2 4323-8, , [id number], 58217-8 ####[facility] LABCLIA [id number] [place] [id number] [place] Protein [Mass/Vol] 6.8 g/dL Normal 6.3-8.0 [facility] Comment on above: Order Comment: Speci men Type: BLOOD SPECIMENOrdering Facility: [facility] Address: [address] [place] [address] Performed By: #### 2 4323-8, 56799-9, DBQ2610, 41022-7 ####[facility] LABCLIA [id number] [place] [address] [place] Sodium [Moles/Vol] 139 mmol/L Normal 136-144 [facility] Comment on above: Order Comment: Speci men Type: BLOOD SPECIMENOrdering Facility: [facility] Address: [address] [place] [address] Performed By: #### 2 4323-8, , [id number], 96731-0 ####[facility] LABCLIA [id number] [address] [address] [place] Urea nitrogen [Mass/Vol] 37 mg/dL High 9-24 [facility] Comment on above: Order Comment: Speci men Type: BLOOD SPECIMENOrdering Facility: [facility] Address: [address] [place] [address] Performed By: #### 2 4323-8, , PMP5029, 51710-9 ####[facility] LABCLIA [id number] [address] [address] [place] ED NOTEon 09-17-2024 ED NOTE Normal [facility] ED NOTE HNO ID: [id number] Author: MATY PARKER RN Service: ? Author Type: Registered Nurse Type: ED Notes Filed: 09/17/2024 16:44 Note Text: Report called to Reyna CHRIS at this time. Normal [facility] ED NOTE Normal [facility] ED PROV NOTEon 09-17-2024 ED PROV NOTE Normal [facility] ED PROV NOTE Normal [facility] ED Triage Noteon 09-17-2024 ED Triage Note Normal [facility] HIGH SENSITIVITY TROPONIN T (INITIAL)on 09-17-2024 Troponin T.cardiac High sensitivity method [Mass/Vol] 79 ng/L High <12 [facility] Comment on above: Order Comment: Speci men Type: BLOOD SPECIMENOrdering Facility: [facility] Address: [address] [place] [address] Performed By: #### 2 4323-8, , [id number], 09471-1 ####[facility] LABCLIA [id number] [place] [id number] [place] HIGH SENSITIVITY TROPONIN T (SECOND)on 09-17-2024 Troponin T.cardiac High sensitivity method [Mass/Vol] 76 ng/L High <12 [facility] Comment on above: Order Comment: Speci men Type: BLOOD SPECIMENOrdering Facility: [facility] Address: [address] [place] [address] Performed By: #### L [id number] ####[facility] LABCLIA [id number] [place] [address] [place] HISTORY PHYSICALon HISTORY PHYSICAL Normal [facility] Magnesium SerPl-ncon 09-17 Magnesium [Mass/Vol] 2.3 mg/dL Normal 1.7-2.3 [facility] Comment on above: Order Comment: Speci men Type: BLOOD SPECIMENOrdering Facility: [facility] Address: [address] [place] [address] Performed By: #### 2 4323-8, 14355-9, FMX6922, 55781-4 ####[facility] LABCLIA [id number] [address] [place] NT-proBNP [facility] 09-17 Natriuretic peptide.B prohormone N-Terminal [Mass/Vol] 45186 pg/mL High <450 [facility] Comment on above: Order Comment: Speci men Type: BLOOD SPECIMENOrdering Facility: [facility] Address: [address] [place] [address] Performed By: #### 2 4323-8, 79642-1, [id number], 01605-6 ####[facility] LABCLIA [id number] [place] [address] [place] TYPE + SCREENon 09-17-2024 ABO O Normal [facility] Comment on above: Order Comment: Speci men Type: BLOOD SPECIMENOrdering Facility: [facility] Address: [address] [place] [address] Performed By: #### T SCR ####[facility] BLOOD BANKCLIA [id number] [place] [id number] [place] Rh Nom (Bld) Positive Normal [facility] Comment on above: Order Comment: Speci men Type: BLOOD SPECIMENOrdering Facility: [facility] Address: [address] [place] [address] Performed By: #### T SCR ####[facility] BLOOD BANKCLIA [id number] [place] [address] [place] TYPE AND SCREEN EXPIRATION 09/20/2024 23:59 Normal [facility] Comment on above: Order Comment: Speci men Type: BLOOD SPECIMENOrdering Facility: [facility] Address: [address] [place] [address] Performed By: #### T SCR ####CC [facility] BLOOD BANKCLIA [id number] [place] [id number] [place] XR CHEST 1V FRONTAL PORTon 0 09-17-2024 XR CHEST 1V FRONTAL PORT Normal [facility] Bacteria Ur Culton Bacteria identified Cx Nom (U) ORGANISM ID: 1 <10,000 CFU/ml Normal urogenital rohan Normal [facility] Comment on above: Performed By: #### 6 30-4 ####[facility] LABCLIA [id number] [place] [id number] [place] Basic metabolic 2000 panelon 09-10-2024 Anion gap [Moles/Vol] 12 mmol/L Normal 8-15 [facility] Comment on above: Order Comment: Speci men Type: BLOOD SPECIMENOrdering Facility: [facility] Address: [address] [place] [address] Performed By: #### 2 4321-2 ####[facility] LABCLIA [id number] [place] [address] Calcium [Mass/Vol] 8.7 mg/dL Normal 8.5-10.2 [facility] Comment on above: Order Comment: Speci men Type: BLOOD SPECIMENOrdering Facility: [facility] Address: [address] [place] [address] Performed By: #### 2 4321-2 ####[facility] LABCLIA [id number] [place] [address] Chloride [Moles/Vol] 99 mmol/L Normal 98-107 [facility] Comment on above: Order Comment: Speci men Type: BLOOD SPECIMENOrdering Facility: [facility] Address: [address] [place] [address] Performed By: #### 2 4321-2 ####[facility] LABCLIA [id number] [place] [address] CO2 [Moles/Vol] 26 mmol/L Normal 22-30 [facility] Comment on above: Order Comment: Speci men Type: BLOOD SPECIMENOrdering Facility: [facility] Address: [address] [place] [address] Performed By: #### 2 4321-2 ####[facility] LABCLIA [id number] [place] [address] Creatinine [Mass/Vol] 2.53 mg/dL High 0.73-1.22 [facility] Comment on above: Order Comment: Speci men Type: BLOOD SPECIMENOrdering Facility: [facility] Address: [address] [place] [address] Performed By: #### 2 4321-2 ####[facility] LABCLIA [id number] [place] [address] Creatinine and Glomerular filtration rate.predicted panel (S/P/Bld) 25 mL/min/1.73m??? Low >=60 [facility] Comment on above: Order Comment: Speci men Type: BLOOD SPECIMENOrdering Facility: [facility] Address: [address] [place] [address] Result Comment: Etta mated Glomerular Filtration Rate [...] actual GFR. Performed By: #### 2 4321-2 ####[facility] LABCLIA [id number] [place] [address] Glucose [Mass/Vol] 111 mg/dL High 74-99 [facility] Comment on above: Order Comment: Speci men Type: BLOOD SPECIMENOrdering Facility: [facility] Address: [address] [place] [id number] Result Comment: The [place] Diabetes Association (ADA) provides guidance for cutoff [...] Standards of Medical Care in Diabetes 2016, [place] [employer]. Diabetes Care. 2016.39(Suppl 1). Performed By: #### 2 4321-2 ####[facility] LABCLIA [id number] [place] [address] Potassium [Moles/Vol] 3.9 mmol/L Normal 3.7-5.1 [facility] Comment on above: Order Comment: Dylan olvera Type: BLOOD SPECIMENOrdering Facility: [facility] Address: [address] [place] [address] Performed By: #### 2 4321-2 ####[facility] LABCLIA [id number] [place] [address] Sodium [Moles/Vol] 137 mmol/L Normal 136-144 [facility] Comment on above: Order Comment: Dylan men Type: BLOOD SPECIMENOrdering Facility: [facility] Address: [address] [place] [address] Performed By: #### 2 4321-2 ####[facility] LABCLIA [id number] [place] [address] Urea nitrogen [Mass/Vol] 57 mg/dL High 9-24 [facility] Comment on above: Order Comment: Speci men Type: BLOOD SPECIMENOrdering Facility: [facility] Address: [address] [place] [address] Performed By: #### 2 4321-2 ####[facility] LABCLIA [id number] [place] [address] CNPNon 09-10-2024 CNPN Normal [facility] NT-proBNP SerPl-mCncon 09-10 Natriuretic peptide.B prohormone N-Terminal [Mass/Vol] 76830 pg/mL High <450 [facility] Comment on above: Order Comment: Speci men Type: BLOOD SPECIMENOrdering Facility: [facility] Address: [address] [place] [address] Performed By: #### 3 3762-6 ####[facility] LABIA [id number] [place] [address] [place] PSA SerPl-mCncon 09-10-2024 Prostate specific Ag [Mass/Vol] ng/mL Normal <2.60 [facility] Comment on above: Order Comment: Speci men Type: BLOOD SPECIMENOrdering Facility: [facility] Address: [address] [place] [address] Result Comment: Tota l PSA test methodology used is the Electrochemiluminescence Immunoassay by [employer]. Total PSA values by differing methodologies cannot be interchanged. Performed By: #### 2 857-1 ####[facility] LABCLIA [id number] [place] [address] [place] TESTOSTERONE, FREE AND TOTAL , BY EQUILIBRIUM ULTRAFILTRATION MASS SPECTROMETRYon 09-10-2024 Testosterone [Mass/Vol] 37.0 ng/dL Low 264.0-916.0 [facility] Comment on above: Order Comment: Speci men Type: BLOOD SPECIMENOrdering Facility: [facility] Address: [address] [place] [address] Result Comment: This [facility] LC/MS-MS method is currently certified by the CDCHormone Standardization Program (HoSt). Adult male referenceinterval is based on a population of healthy nonobese males(BMI <30) between 19 and 39 years old. Keisha et.al. GTEW2509,102;4588-2231. PMID: [id number]. Performed By: #### T FTEST ####[facility] LABCLIA [id number] [place] [address] Testosterone Free [Mass/Vol] 0.84 ng/dL Low 5.00-21.00 [facility] Comment on above: Order Comment: Speci men Type: BLOOD SPECIMENOrdering Facility: [facility] Address: [address] [place] [address] Performed By: #### T FTEST ####[facility] LABCLIA [id number] [place] [address] Testosterone Free/Testosterone.t otal [Mass fraction] 2.28 % Normal 1.50-4.20 [facility] Comment on above: Order Comment: Speci men Type: BLOOD SPECIMENOrdering Facility: [facility] Address: [address] [place] [address] Performed By: #### T FTEST ####[facility] LABCLIA [id number] [place] [address] Urinalysis complete panel (U )on 09-10-2024 Bacteria LM.HPF (Urine sed) [#/Area] Negative Normal Negative [facility] Comment on above: Order Comment: Speci men Type: URINE SPECIMENOrdering Facility: [facility] Address: [address] [place] [address] Performed By: #### 2 4356-8 ####[facility] LABCLIA [id number] [place] [address] [place] Bilirubin Ql (U) Negative Normal Negative [facility] Comment on above: Order Comment: Speci men Type: URINE SPECIMENOrdering Facility: [facility] Address: [address] [place] [address] Performed By: #### 2 4356-8 ####[facility] LABCLIA [id number] [address] [address] [place] Clarity (Unsp spec) Clear Normal [facility] Comment on above: Order Comment: Speci men Type: URINE SPECIMENOrdering Facility: [facility] Address: [address] [place], [place] [address] Performed By: #### 2 4356-8 ####[facility] LABCLIA [id number] [place] [address] [place] Color (U) Yellow Normal Yellow [facility] Comment on above: Order Comment: Speci men Type: URINE SPECIMENOrdering Facility: [facility] Address: [address] [place] [address] Performed By: #### 2 4356-8 ####[facility] LABCLIA [id number] [place] [address] [place] Epithelial cells LM.HPF (Urine sed) [#/Area] None Seen Normal [facility] Comment on above: Order Comment: Speci men Type: URINE SPECIMENOrdering Facility: [facility] Address: [address] [place] [address] Performed By: #### 2 4356-8 ####[facility] LABCLIA [id number] [address] [address] [place] Glucose Test strip (U) [Mass/Vol] Trace Abnormal Negative [facility] Comment on above: Order Comment: Speci men Type: URINE SPECIMENOrdering Facility: [facility] Address: [address] [place], [place] [address] Performed By: #### 2 4356-8 ####[facility] LABCLIA [id number] [place] [address] [place] Hemoglobin Ql (U) Negative Normal Negative [facility] Comment on above: Order Comment: Speci men Type: URINE SPECIMENOrdering Facility: [facility] Address: [address] [place] [address] Performed By: #### 2 4356-8 ####[facility] LABCLIA [id number] [place] [address] [place] Hyaline casts (Urine sed) [#/Area] 0 /[LPF] Normal 0 /LPF [facility] Comment on above: Order Comment: Speci men Type: URINE SPECIMENOrdering Facility: [facility] Address: [address] [place] [address] Performed By: #### 2 4356-8 ####[facility] LABCLIA [id number] [place] [address] [place] Ketones Ql (U) Negative Normal Negative [facility] Comment on above: Order Comment: Speci men Type: URINE SPECIMENOrdering Facility: [facility] Address: [address] [place] [address] Performed By: #### 2 4356-8 ####[facility] LABCLIA [id number] [place] [address] [place] Leukocyte esterase Test strip Ql (U) Negative Normal Negative [facility] Comment on above: Order Comment: Speci men Type: URINE SPECIMENOrdering Facility: [facility] Address: [address] [place] [address] Performed By: #### 2 4356-8 ####[facility] LABCLIA [id number] [place] [address] [place] Nitrite Ql (U) Negative Normal Negative [facility] Comment on above: Order Comment: Speci men Type: URINE SPECIMENOrdering Facility: [facility] Address: [address] [place] [address] Performed By: #### 2 4356-8 ####[facility] LABCLIA [id number] [place] [id number] [place] pH (U) 7.0 [pH] Normal <8.5 [facility] Comment on above: Order Comment: Speci men Type: URINE SPECIMENOrdering Facility: [facility] Address: [address] [place] [address] Performed By: #### 2 4356-8 ####[facility] LABCLIA [id number] [place] [id number] [place] Protein (U) [Mass/Vol] 1+ Abnormal Negative [facility] Comment on above: Order Comment: Speci men Type: URINE SPECIMENOrdering Facility: [facility] Address: [address] [place] [address] Performed By: #### 2 4356-8 ####[facility] LABIA [id number] [place] [address] [place] RBC LM.HPF (Urine sed) [#/Area] 0-2 /HPF Normal 0-2 /HPF [facility] Comment on above: Order Comment: Speci men Type: URINE SPECIMENOrdering Facility: [facility] Address: [address] [place] [address] Performed By: #### 2 4356-8 ####[facility] LABIA [id number] [place] [id number] [place] Specific gravity (U) [Rel density] 1.011 Normal 1.005-1.030 [facility] Comment on above: Order Comment: Speci men Type: URINE SPECIMENOrdering Facility: [facility] Address: [address] [place] [address] Performed By: #### 2 4356-8 ####[facility] LABCLIA [id number] [place] [id number] [place] Urobilinogen Ql (U) 0.2 EU/dL Normal 0.2-1.0 EU/dL [facility] Comment on above: Order Comment: Speci men Type: URINE SPECIMENOrdering Facility: [facility] Address: [facility] [place] [id number] Performed By: #### 2 4356-8 ####[facility] LABCLIA [id number] [address] [address] [place] WBC LM.HPF (Urine sed) [#/Area] 0-5 /HPF Normal 0-5 /HPF [facility] Comment on above: Order Comment: Speci men Type: URINE SPECIMENOrdering Facility: [facility] Address: [facility] [place] [id number] Performed By: #### 2 4356-8 ####[facility] LABCLIA [id number] [address] [address] [place] CNPNon 09-07-2024 CNPN Normal [facility] CNPNon 09-03-2024 CNPN Normal [facility] Basic metabolic 2000 panelon 08-31-2024 Anion gap [Moles/Vol] 16 mmol/L High 8-15 [facility] Comment on above: Order Comment: Speci men Type: BLOOD SPECIMENOrdering Facility: [facility] Address: [address] [place] [address] Performed By: #### 2 4321-2 ####[facility] LABCLIA [id number] [place] [address] Calcium [Mass/Vol] 9.4 mg/dL Normal 8.5-10.2 [facility] Comment on above: Order Comment: Speci men Type: BLOOD SPECIMENOrdering Facility: [facility] Address: [address] [place] [address] Performed By: #### 2 4321-2 ####[facility] LABCLIA [id number] [place] [address] Chloride [Moles/Vol] 96 mmol/L Low 98-107 [facility] Comment on above: Order Comment: Speci men Type: BLOOD SPECIMENOrdering Facility: [facility] Address: [address] [place] [address] Performed By: #### 2 4321-2 ####[facility] LABCLIA [id number] [place] [address] CO2 [Moles/Vol] 22 mmol/L Normal 22-30 [facility] Comment on above: Order Comment: Speci men Type: BLOOD SPECIMENOrdering Facility: [facility] Address: [address] [place] [address] Performed By: #### 2 4321-2 ####[facility] LABCLIA [id number] [place] [address] Creatinine [Mass/Vol] 2.98 mg/dL High 0.73-1.22 [facility] Comment on above: Order Comment: Speci men Type: BLOOD SPECIMENOrdering Facility: [facility] Address: [address] [place] [address] Performed By: #### 2 4321-2 ####[facility] LABCLIA [id number] [place] [address] Creatinine and Glomerular filtration rate.predicted panel (S/P/Bld) 20 mL/min/1.73m??? Low >=60 [facility] Comment on above: Order Comment: Speci men Type: BLOOD SPECIMENOrdering Facility: [facility] Address: [address] [place] [address] Result Comment: Etta mated Glomerular Filtration Rate [...] actual GFR. Performed By: #### 2 4321-2 ####[facility] LABCLIA [id number] [place] [address] Glucose [Mass/Vol] 112 mg/dL High 74-99 [facility] Comment on above: Order Comment: Speci men Type: BLOOD SPECIMENOrdering Facility: [facility] Address: [address] [place], [place] [phone] Result Comment: The [place] Diabetes Association (ADA) provides guidance for cutoff [...] Standards of Medical Care in Diabetes 2016, [place] [employer]. Diabetes Care. 2016.39(Suppl 1). Performed By: #### 2 4321-2 ####[facility] LABCLIA [id number] [place] [address] Potassium [Moles/Vol] 4.3 mmol/L Normal 3.7-5.1 [facility] Comment on above: Order Comment: Rozi men Type: BLOOD SPECIMENOrdering Facility: [facility] Address: [address] [place] [address] Performed By: #### 2 4321-2 ####[facility] LABCLIA [id number] [place] [address] Sodium [Moles/Vol] 134 mmol/L Low 136-144 [facility] Comment on above: Order Comment: Speci men Type: BLOOD SPECIMENOrdering Facility: [facility] Address: [address] [place] [address] Performed By: #### 2 4321-2 ####[facility] LABCLIA [id number] [place] [address] Urea nitrogen [Mass/Vol] 71 mg/dL High 9-24 [facility] Comment on above: Order Comment: Speci men Type: BLOOD SPECIMENOrdering Facility: [facility] Address: [address] [place] [address] Performed By: #### 2 4321-2 ####[facility] LABCLIA [id number] [place] [address] CBC W Auto Differential pane l (Bld)on 08-31-2024 Basophils (Bld) [#/Vol] 0.04 10*3/uL Normal <0.11 [facility] Comment on above: Order Comment: Speci men Type: BLOOD SPECIMENOrdering Facility: [facility] Address: [address] [place] [address] Performed By: #### 5 7021-8 ####[facility] LABIA [id number] [place] [address] Basophils/100 WBC (Bld) 0.6 % Normal [facility] Comment on above: Order Comment: Speci men Type: BLOOD SPECIMENOrdering Facility: [facility] Address: [address] [place] [address] Performed By: #### 5 7021-8 ####[facility] LABCLIA [id number] [place] [address] Differential cell count method Nom (Bld) Auto Normal [facility] Comment on above: Order Comment: Speci men Type: BLOOD SPECIMENOrdering Facility: [facility] Address: [address] [place] [address] Performed By: #### 5 7021-8 ####[facility] LABIA [id number] [place] [address] Eosinophils (Bld) [#/Vol] 0.03 10*3/uL Normal <0.46 [facility] Comment on above: Order Comment: Speci men Type: BLOOD SPECIMENOrdering Facility: [facility] Address: [address] [place] [address] Performed By: #### 5 7021-8 ####[facility] LABCLIA [id number] [place] [address] Eosinophils/100 WBC (Bld) 0.5 % Normal [facility] Comment on above: Order Comment: Speci men Type: BLOOD SPECIMENOrdering Facility: [facility] Address: [address] [place] [address] Performed By: #### 5 7021-8 ####[facility] LABCLIA [id number] [place] [address] Erythrocyte distribution width (RBC) [Ratio] 18.5 % High 11.5-15.0 [facility] Comment on above: Order Comment: Speci men Type: BLOOD SPECIMENOrdering Facility: [facility] Address: [address] [place] [address] Performed By: #### 5 7021-8 ####[facility] LABCLIA [id number] [place] [address] Hematocrit (Bld) [Volume fraction] 33.8 % Low 39.0-51.0 [facility] Comment on above: Order Comment: Speci men Type: BLOOD SPECIMENOrdering Facility: [facility] Address: [address] [place] [address] Performed By: #### 5 7021-8 ####[facility] LABCLIA [id number] [place] [address] Hemoglobin (Bld) [Mass/Vol] 10.5 g/dL Low 13.0-17.0 [facility] Comment on above: Order Comment: Speci men Type: BLOOD SPECIMENOrdering Facility: [facility] Address: [address] [place] [address] Performed By: #### 5 7021-8 ####[facility] LABCLIA [id number] [place] [address] Immature granulocytes (Bld) [#/Vol] 10*3/uL Normal <0.10 [facility] Comment on above: Order Comment: Speci men Type: BLOOD SPECIMENOrdering Facility: [facility] Address: [address] [place] [address] Performed By: #### 5 7021-8 ####[facility] LABCLIA [id number] [place] [address] Immature granulocytes/100 WBC (Bld) 0.3 % Normal [facility] Comment on above: Order Comment: Speci men Type: BLOOD SPECIMENOrdering Facility: [facility] Address: [address] [place] [address] Performed By: #### 5 7021-8 ####[facility] LABCLIA [id number] [place] [address] Lymphocytes (Bld) [#/Vol] 0.74 10*3/uL Low 1.00-4.00 [facility] Comment on above: Order Comment: Speci men Type: BLOOD SPECIMENOrdering Facility: [facility] Address: [address] [place] [address] Performed By: #### 5 7021-8 ####[facility] LABCLIA [id number] [place] [address] Lymphocytes/100 WBC (Bld) 11.8 % Normal [facility] Comment on above: Order Comment: Speci men Type: BLOOD SPECIMENOrdering Facility: [facility] Address: [address] [place] [address] Performed By: #### 5 7021-8 ####[facility] LABCLIA [id number] [place] [address] MCH (RBC) [Entitic mass] 27.9 pg Normal 26.0-34.0 [facility] Comment on above: Order Comment: Speci men Type: BLOOD SPECIMENOrdering Facility: [facility] Address: [address] [place] [address] Performed By: #### 5 7021-8 ####[facility] LABCLIA [id number] [place] [address] MCHC (RBC) [Mass/Vol] 31.1 g/dL Normal 30.5-36.0 [facility] Comment on above: Order Comment: Speci men Type: BLOOD SPECIMENOrdering Facility: [facility] Address: [address] [place] [address] Performed By: #### 5 7021-8 ####[facility] LABCLIA [id number] [place] [address] MCV (RBC) [Entitic vol] 89.7 fL Normal 80.0-100.0 [facility] Comment on above: Order Comment: Speci men Type: BLOOD SPECIMENOrdering Facility: [facility] Address: [address] [place] [address] Performed By: #### 5 7021-8 ####[facility] LABCLIA [id number] [place] [address] Monocytes (Bld) [#/Vol] 0.75 10*3/uL Normal <0.87 [facility] Comment on above: Order Comment: Speci men Type: BLOOD SPECIMENOrdering Facility: [facility] Address: [address] [place] [address] Performed By: #### 5 7021-8 ####[facility] LABCLIA [id number] [place] [address] Monocytes/100 WBC (Bld) 11.9 % Normal [facility] Comment on above: Order Comment: Speci men Type: BLOOD SPECIMENOrdering Facility: [facility] Address: [address] [place] [address] Performed By: #### 5 7021-8 ####[facility] LABCLIA [id number] [place] [address] Neutrophils (Bld) [#/Vol] 4.71 10*3/uL Normal 1.45-7.50 [facility] Comment on above: Order Comment: Speci men Type: BLOOD SPECIMENOrdering Facility: [facility] Address: [address] [place] [address] Performed By: #### 5 7021-8 ####[facility] LABCLIA [id number] [place] [address] Neutrophils/100 WBC (Bld) 74.9 % Normal [facility] Comment on above: Order Comment: Speci men Type: BLOOD SPECIMENOrdering Facility: [facility] Address: [address] [place] [address] Performed By: #### 5 7021-8 ####[facility] LABCLIA [id number] [place] [address] Nucleated RBC (Bld) [#/Vol] 0.02 10*3/uL High <0.01 [facility] Comment on above: Order Comment: Speci men Type: BLOOD SPECIMENOrdering Facility: [facility] Address: [address] [place] [address] Performed By: #### 5 7021-8 ####[facility] LABIA [id number] [place] [address] Nucleated RBC/100 WBC (Bld) [Ratio] 0.3 /100 WBC Normal [facility] Comment on above: Order Comment: Speci men Type: BLOOD SPECIMENOrdering Facility: [facility] Address: [address] [place] [address] Performed By: #### 5 7021-8 ####[facility] LABIA [id number] [place] [address] Platelet mean volume (Bld) [Entitic vol] 10.4 fL Normal 9.0-12.7 [facility] Comment on above: Order Comment: Speci men Type: BLOOD SPECIMENOrdering Facility: [facility] Address: [address] [place] [address] Performed By: #### 5 7021-8 ####[facility] LABIA [id number] [place] [address] Platelets (Bld) [#/Vol] 195 10*3/uL Normal 150-400 [facility] Comment on above: Order Comment: Speci men Type: BLOOD SPECIMENOrdering Facility: [facility] Address: [address] [place] [address] Performed By: #### 5 7021-8 ####[facility] LABIA [id number] [place] [address] RBC (Bld) [#/Vol] 3.77 10*6/uL Low 4.20-6.00 [facility] Comment on above: Order Comment: Speci men Type: BLOOD SPECIMENOrdering Facility: [facility] Address: [address] [place] [address] Performed By: #### 5 7021-8 ####[facility] LABIA [id number] [place] [address] WBC (Bld) [#/Vol] 6.29 10*3/uL Normal 3.70-11.00 [facility] Comment on above: Order Comment: Speci men Type: BLOOD SPECIMENOrdering Facility: [facility] Address: [address] [place] [address] Performed By: #### 5 7021-8 ####[facility] LABIA [id number] [place] [address] NT-proBNP [facility] 08-31 Natriuretic peptide.B prohormone N-Terminal [Mass/Vol] 61429 pg/mL High <450 [facility] Comment on above: Order Comment: Speci men Type: BLOOD SPECIMENOrdering Facility: [facility] Address: [address] [place] [address] Performed By: #### 3 3762-6 ####[facility] LABCLIA [id number] [facility] [id number] [address] [place] CNPNon 08-28-2024 CNPN Normal [facility] Basic metabolic 2000 panelon 08-19-2024 Anion gap [Moles/Vol] 14 mmol/L Normal 8-15 [facility] Comment on above: Order Comment: Speci men Type: BLOOD SPECIMENOrdering Facility: [facility] Address: [address] [place] [address] Performed By: #### 2 4321-2, 92444-5 ####[facility] LABCLIA [id number] [facility] [place] [address] [place] Calcium [Mass/Vol] 9.1 mg/dL Normal 8.5-10.2 [facility] Comment on above: Order Comment: Speci men Type: BLOOD SPECIMENOrdering Facility: [facility] Address: [address] [place] [address] Performed By: #### 2 4321-2, 18120-9 ####[facility] LABCLIA [id number] [facility] [place] [address] [place] Chloride [Moles/Vol] 100 mmol/L Normal 98-107 [facility] Comment on above: Order Comment: Speci men Type: BLOOD SPECIMENOrdering Facility: [facility] Address: [address] [place] [address] Performed By: #### 2 432-2, 64575-5 ####[facility] LABCLIA [id number] [facility] [place] [address] [place] CO2 [Moles/Vol] 28 mmol/L Normal 22-30 [facility] Comment on above: Order Comment: Speci men Type: BLOOD SPECIMENOrdering Facility: [facility] Address: [address] [place] [address] Performed By: #### 2 4321-2, 69029-8 ####[facility] LABCLIA [id number] [facility] [place] [address] [place] Creatinine [Mass/Vol] 2.05 mg/dL High 0.73-1.22 [facility] Comment on above: Order Comment: Speci men Type: BLOOD SPECIMENOrdering Facility: [facility] Address: [address] [place] [address] Performed By: #### 2 4321-2, 64698-5 ####[facility] LABCLIA [id number] [place] [address] [place] Creatinine and Glomerular filtration rate.predicted panel (S/P/Bld) 32 mL/min/1.73m??? Low >=60 [facility] Comment on above: Order Comment: Dylan olvera Type: BLOOD SPECIMENOrdering Facility: [facility] Address: [address] [place] [address] Result Comment: Etta mated Glomerular Filtration Rate [...] actual GFR. Performed By: #### 2 4321-2, 46634-4 ####[facility] LABCLIA [id number] [place] [address] [place] Glucose [Mass/Vol] 99 mg/dL Normal 74-99 [facility] Comment on above: Order Comment: Dylan olvera Type: BLOOD SPECIMENOrdering Facility: [facility] Address: [address] [place] [address] Result Comment: The [place] [employer] (ADA) provides guidance for cutoff [...] Standards of Medical Care in Diabetes 2016, [place] [employer]. Diabetes Care. 2016.39(Suppl 1). Performed By: #### 2 4321-2, 05318-1 ####[facility] LABIA [id number] [place] [id number] [place] Potassium [Moles/Vol] 3.9 mmol/L Normal 3.7-5.1 [facility] Comment on above: Order Comment: Speci men Type: BLOOD SPECIMENOrdering Facility: [facility] Address: [address] [place] [address] Performed By: #### 2 4321-2, 27298-1 ####[facility] LABCLIA [id number] [place] [address] [place] Sodium [Moles/Vol] 142 mmol/L Normal 136-144 [facility] Comment on above: Order Comment: Speci men Type: BLOOD SPECIMENOrdering Facility: [facility] Address: [address] [place] [address] Performed By: #### 2 4321-2, 51651-0 ####[facility] LABCLIA [id number] [place] [address] [place] Urea nitrogen [Mass/Vol] 43 mg/dL High 9-24 [facility] Comment on above: Order Comment: Speci men Type: BLOOD SPECIMENOrdering Facility: [facility] Address: [address] [place] [address] Performed By: #### 2 4321-2, 47823-1 ####[facility] LABCLIA [id number] [place] [address] [place] CBC W Auto Differential pane l (Bld)on 08-19-2024 Basophils (Bld) [#/Vol] 0.04 10*3/uL [facility] Basophils/100 WBC (Bld) 0.5 % [facility] Differential cell count method Nom (Bld) Auto [facility] Eosinophils (Bld) [#/Vol] 0.13 10*3/uL [facility] Eosinophils/100 WBC (Bld) 1.8 % [facility] Erythrocyte distribution width (RBC) [Ratio] 18.5 % High 11.5 - 15.0 % [facility] Hematocrit (Bld) [Volume fraction] 32.9 % Low 39.0 - 51.0 % [facility] Hemoglobin (Bld) [Mass/Vol] 10.3 g/dL Low 13.0 - 17.0 g/dL [facility] Immature granulocytes (Bld) [#/Vol] 0.04 10*3/uL NINF [facility] Immature granulocytes/100 WBC (Bld) 0.5 % [facility] Interpretation and review of laboratory results Abnormal [facility] Lymphocytes (Bld) [#/Vol] 0.99 10*3/uL Low [facility] Lymphocytes/100 WBC (Bld) 13.6 % [facility] MCH (RBC) [Entitic mass] 28.5 pg 26.0 - 34.0 pg [facility] MCHC (RBC) [Mass/Vol] 31.3 g/dL 30.5 - 36.0 g/dL [facility] MCV (RBC) [Entitic vol] 90.9 fL 80.0 - 100.0 fL [facility] Monocytes (Bld) [#/Vol] 0.69 10*3/[facility]L [facility] Monocytes/100 WBC (Bld) 9.5 % [facility] Neutrophils (Bld) [#/Vol] 5.40 10*3/uL [facility] Neutrophils/100 WBC (Bld) 74.1 % [facility] Nucleated RBC (Bld) [#/Vol] [facility] Nucleated RBC/100 WBC (Bld) [Ratio] 0.0 % /100 WBC [facility] Platelet mean volume (Bld) [Entitic vol] 10.3 fL 9.0 - 12.7 fL [facility] Platelets (Bld) [#/Vol] 192 10*3/uL [facility] RBC (Bld) [#/Vol] 3.62 10*6/uL Low 4.20 - 6.0 0 m/uL [facility] WBC (Bld) [#/Vol] 7.29 10*3/uL [facility] Basophils (Bld) [#/Vol] 0.04 10*3/uL Normal <0.11 [facility] Comment on above: Order Comment: Speci men Type: BLOOD SPECIMENOrdering Facility: [facility] Address: [address] [place] [address] Performed By: #### 5 7021-8 ####[facility] LABCLIA [id number] [place] [address] [place] Basophils/100 WBC (Bld) 0.5 % Normal [facility] Comment on above: Order Comment: Speci men Type: BLOOD SPECIMENOrdering Facility: [facility] Address: [address] [place] [address] Performed By: #### 5 7021-8 ####[facility] LABCLIA [id number] [place] [address] [place] Differential cell count method Nom (Bld) Auto Normal [facility] Comment on above: Order Comment: Speci men Type: BLOOD SPECIMENOrdering Facility: [facility] Address: [address] [place] [address] Performed By: #### 5 7021-8 ####[facility] LABCLIA [id number] [place] [address] [place] Eosinophils (Bld) [#/Vol] 0.13 10*3/uL Normal <0.46 [facility] Comment on above: Order Comment: Speci men Type: BLOOD SPECIMENOrdering Facility: [facility] Address: [address] [place] [address] Performed By: #### 5 7021-8 ####[facility] LABCLIA [id number] [place] [address] [place] Eosinophils/100 WBC (Bld) 1.8 % Normal [facility] Comment on above: Order Comment: Speci men Type: BLOOD SPECIMENOrdering Facility: [facility] Address: [address] [place] [address] Performed By: #### 5 7021-8 ####[facility] LABCLIA [id number] [place] [address] [place] Erythrocyte distribution width (RBC) [Ratio] 18.5 % High 11.5-15.0 [facility] Comment on above: Order Comment: Speci men Type: BLOOD SPECIMENOrdering Facility: [facility] Address: [address] [place] [address] Performed By: #### 5 7021-8 ####[facility] LABCLIA [id number] [place] [address] [place] Hematocrit (Bld) [Volume fraction] 32.9 % Low 39.0-51.0 [facility] Comment on above: Order Comment: Speci men Type: BLOOD SPECIMENOrdering Facility: [facility] Address: [address] [place] [address] Performed By: #### 5 7021-8 ####[facility] LABCLIA [id number] [place] [address] [place] Hemoglobin (Bld) [Mass/Vol] 10.3 g/dL Low 13.0-17.0 [facility] Comment on above: Order Comment: Speci men Type: BLOOD SPECIMENOrdering Facility: [facility] Address: [address] [place] [address] Performed By: #### 5 7021-8 ####[facility] LABIA [id number] [place] [address] [place] Immature granulocytes (Bld) [#/Vol] 0.04 10*3/uL Normal <0.10 [facility] Comment on above: Order Comment: Speci men Type: BLOOD SPECIMENOrdering Facility: [facility] Address: [address] [place] [address] Performed By: #### 5 7021-8 ####[facility] LABCLIA [id number] [place] [address] [place] Immature granulocytes/100 WBC (Bld) 0.5 % Normal [facility] Comment on above: Order Comment: Speci men Type: BLOOD SPECIMENOrdering Facility: [facility] Address: [address] [place] [address] Performed By: #### 5 7021-8 ####[facility] LABCLIA [id number] [place] [address] [place] Lymphocytes (Bld) [#/Vol] 0.99 10*3/uL Low 1.00-4.00 [facility] Comment on above: Order Comment: Speci men Type: BLOOD SPECIMENOrdering Facility: [facility] Address: [address] [place] [address] Performed By: #### 5 7021-8 ####[facility] LABCLIA [id number] [place] [address] [place] Lymphocytes/100 WBC (Bld) 13.6 % Normal [facility] Comment on above: Order Comment: Speci men Type: BLOOD SPECIMENOrdering Facility: [facility] Address: [address] [place] [address] Performed By: #### 5 7021-8 ####[facility] LABCLIA [id number] [place] [address] [place] MCH (RBC) [Entitic mass] 28.5 pg Normal 26.0-34.0 [facility] Comment on above: Order Comment: Speci men Type: BLOOD SPECIMENOrdering Facility: [facility] Address: [address] [place] [address] Performed By: #### 5 7021-8 ####[facility] LABCLIA [id number] [place] [address] [place] MCHC (RBC) [Mass/Vol] 31.3 g/dL Normal 30.5-36.0 [facility] Comment on above: Order Comment: Speci men Type: BLOOD SPECIMENOrdering Facility: [facility] Address: [address] [place] [address] Performed By: #### 5 7021-8 ####[facility] LABCLIA [id number] [place] [address] [place] MCV (RBC) [Entitic vol] 90.9 fL Normal 80.0-100.0 [facility] Comment on above: Order Comment: Speci men Type: BLOOD SPECIMENOrdering Facility: [facility] Address: [address] [place] [address] Performed By: #### 5 7021-8 ####[facility] LABCLIA [id number] [place] [address] [place] Monocytes (Bld) [#/Vol] 0.69 10*3/uL Normal <0.87 [facility] Comment on above: Order Comment: Speci men Type: BLOOD SPECIMENOrdering Facility: [facility] Address: [address] [place] [address] Performed By: #### 5 7021-8 ####[facility] LABCLIA [id number] [place] [address] [place] Monocytes/100 WBC (Bld) 9.5 % Normal [facility] Comment on above: Order Comment: Speci men Type: BLOOD SPECIMENOrdering Facility: [facility] Address: [address] [place] [address] Performed By: #### 5 7021-8 ####[facility] LABCLIA [id number] [place] [address] [place] Neutrophils (Bld) [#/Vol] 5.40 10*3/uL Normal 1.45-7.50 [facility] Comment on above: Order Comment: Speci men Type: BLOOD SPECIMENOrdering Facility: [facility] Address: [address] [place] [address] Performed By: #### 5 7021-8 ####[facility] LABCLIA [id number] [place] [address] [place] Neutrophils/100 WBC (Bld) 74.1 % Normal [facility] Comment on above: Order Comment: Speci men Type: BLOOD SPECIMENOrdering Facility: [facility] Address: [address] [place] [address] Performed By: #### 5 7021-8 ####[facility] LABCLIA [id number] [place] [address] [place] Nucleated RBC (Bld) [#/Vol] 10*3/uL Normal <0.01 [facility] Comment on above: Order Comment: Speci men Type: BLOOD SPECIMENOrdering Facility: [facility] Address: [address] [place] [address] Performed By: #### 5 7021-8 ####[facility] LABCLIA [id number] [place] [address] [place] Nucleated RBC/100 WBC (Bld) [Ratio] 0.0 /100 WBC Normal [facility] Comment on above: Order Comment: Speci men Type: BLOOD SPECIMENOrdering Facility: [facility] Address: [address] [place] [address] Performed By: #### 5 7021-8 ####[facility] LABCLIA [id number] [place] [address] [place] Platelet mean volume (Bld) [Entitic vol] 10.3 fL Normal 9.0-12.7 [facility] Comment on above: Order Comment: Speci men Type: BLOOD SPECIMENOrdering Facility: [facility] Address: [address] [place] [address] Performed By: #### 5 7021-8 ####[facility] LABCLIA [id number] [place] [address] [place] Platelets (Bld) [#/Vol] 192 10*3/uL Normal 150-400 [facility] Comment on above: Order Comment: Speci men Type: BLOOD SPECIMENOrdering Facility: [facility] Address: [address] [place] [address] Performed By: #### 5 7021-8 ####[facility] LABCLIA [id number] [place] [address] [place] RBC (Bld) [#/Vol] 3.62 10*6/uL Low 4.20-6.00 [facility] Comment on above: Order Comment: Speci men Type: BLOOD SPECIMENOrdering Facility: [facility] Address: [address] [place] [address] Performed By: #### 5 7021-8 ####[facility] LABCLIA [id number] [place] [address] [place] WBC (Bld) [#/Vol] 7.29 10*3/uL Normal 3.70-11.00 [facility] Comment on above: Order Comment: Speci men Type: BLOOD SPECIMENOrdering Facility: [facility] Address: [address] [place] [address] Performed By: #### 5 7021-8 ####[facility] LABCLIA [id number] [place] [address] [place] CNCNPATEDon 08-19-2024 CNCNPATED Normal [facility] CNOVon 08-19-2024 CNOV Normal [facility] ECG COMPLETEon 08-19-2024 ECG COMPLETE Normal [facility] HOLTER MONITOR 48 HOURon HOLTER MONITOR 48 HOUR Normal [facility] NT-proBNP SerPl-mCncon 08-19 Natriuretic peptide.B prohormone N-Terminal [Mass/Vol] 63260 pg/mL High <450 [facility] Comment on above: Order Comment: Speci men Type: BLOOD SPECIMENOrdering Facility: [facility] Address: [address] [place] [address] Performed By: #### 2 4321-2, 11664-1 ####[facility] LABCLIA [id number] [place] [address] [place] CNPNon 08-18-2024 CNPN Normal [facility] CNPNon 08-17-2024 CNPN Normal [facility] CNPNon 08-14-2024 CNPN Normal [facility] CNPNon 08-03-2024 CNPN Normal [facility] CNPNon 07-30-2024 CNPN Normal [facility] CBC panel Auto (Bld)on 07-26 Erythrocyte distribution width (RBC) [Ratio] 17.2 % High 11.5-15.0 [facility] Comment on above: Order Comment: Speci men Type: BLOOD SPECIMENOrdering Facility: [facility] Address: [address] [place] [address] Performed By: #### 5 8410-2 ####[facility] LABCLIA [id number] [address] [place] Hematocrit (Bld) [Volume fraction] 41.0 % Normal 39.0-51.0 [facility] Comment on above: Order Comment: Speci men Type: BLOOD SPECIMENOrdering Facility: [facility] Address: [address] [place] [address] Performed By: #### 5 8410-2 ####[facility] LABCLIA [id number] [place] [address] [place] Hemoglobin (Bld) [Mass/Vol] 12.5 g/dL Low 13.0-17.0 [facility] Comment on above: Order Comment: Speci men Type: BLOOD SPECIMENOrdering Facility: [facility] Address: [address] [place] [address] Performed By: #### 5 8410-2 ####[facility] LABCLIA [id number] [place] [address] [place] MCH (RBC) [Entitic mass] 27.7 pg Normal 26.0-34.0 [facility] Comment on above: Order Comment: Speci men Type: BLOOD SPECIMENOrdering Facility: [facility] Address: [address] [place] [address] Performed By: #### 5 8410-2 ####[facility] LABCLIA [id number] [place] [address] [place] MCHC (RBC) [Mass/Vol] 30.5 g/dL Normal 30.5-36.0 [facility] Comment on above: Order Comment: Speci men Type: BLOOD SPECIMENOrdering Facility: [facility] Address: [address] [place] [address] Performed By: #### 5 8410-2 ####[facility] [id number] [place] [address] [place] MCV (RBC) [Entitic vol] 90.7 fL Normal 80.0-100.0 [facility] Comment on above: Order Comment: Speci men Type: BLOOD SPECIMENOrdering Facility: [facility] Address: [address] [place] [address] Performed By: #### 5 8410-2 ####[facility] [id number] [place] [address] [place] Nucleated RBC (Bld) [#/Vol] 10*3/uL Normal <0.01 [facility] Comment on above: Order Comment: Speci men Type: BLOOD SPECIMENOrdering Facility: [facility] Address: [address] [place] [address] Performed By: #### 5 8410-2 ####[facility] [id number] [place] [address] [place] Platelet mean volume (Bld) [Entitic vol] 10.9 fL Normal 9.0-12.7 [facility] Comment on above: Order Comment: Speci men Type: BLOOD SPECIMENOrdering Facility: [facility] Address: [address] [place] [address] Performed By: #### 5 8410-2 ####[facility] LABIA [id number] [place] [address] [place] Platelets (Bld) [#/Vol] 158 10*3/uL Normal 150-400 [facility] Comment on above: Order Comment: Speci men Type: BLOOD SPECIMENOrdering Facility: [facility] Address: [address] [place] [address] Performed By: #### 5 8410-2 ####[facility] LABCLIA [id number] [address] [address] [place] RBC (Bld) [#/Vol] 4.52 10*6/uL Normal 4.20-6.00 [facility] Comment on above: Order Comment: Speci men Type: BLOOD SPECIMENOrdering Facility: [facility] Address: [address] [place] [address] Performed By: #### 5 8410-2 ####[facility] LABIA [id number] [address] [address] [place] WBC (Bld) [#/Vol] 5.57 10*3/uL Normal 3.70-11.00 [facility] Comment on above: Order Comment: Speci men Type: BLOOD SPECIMENOrdering Facility: [facility] Address: [address] [place] [address] Performed By: #### 5 8410-2 ####[facility] LABIA [id number] [place] [id number] [place] CNDSon 07-26-2024 CNDS Normal [facility] Comprehensive metabolic 2000 panelon 07-26-2024 Albumin [Mass/Vol] 3.3 g/dL Low 3.9-4.9 [facility] Comment on above: Order Comment: Speci men Type: BLOOD SPECIMENOrdering Facility: [facility] Address: [address] [place] [address] Performed By: #### 2 4323-8, 02198-7 ####[facility] LABIA [id number] [place] [address] [place] ALP [Catalytic activity/Vol] 86 U/L Normal 38-113 [facility] Comment on above: Order Comment: Speci men Type: BLOOD SPECIMENOrdering Facility: [facility] Address: [address] [place] [address] Performed By: #### 2 4323, ####[facility] LABCLIA [id number] [address] [address] [place] ALT [Catalytic activity/Vol] 15 U/L Normal 10-54 [facility] Comment on above: Order Comment: Speci men Type: BLOOD SPECIMENOrdering Facility: [facility] Address: [address] [place] [address] Performed By: #### 2 4323-04, ####[facility] LABCLIA [id number] [place] [address] [place] Anion gap [Moles/Vol] 10 mmol/L Normal 8-15 [facility] Comment on above: Order Comment: Speci men Type: BLOOD SPECIMENOrdering Facility: [facility] Address: [address] [place] [address] Performed By: #### 2 4323-04, ####[facility] LABCLIA [id number] [place] [address] [place] AST [Catalytic activity/Vol] 26 U/L Normal 14-40 [facility] Comment on above: Order Comment: Speci men Type: BLOOD SPECIMENOrdering Facility: [facility] Address: [address] [place] [address] Result Comment: Resu lts may be falsely increased due to interference from hemolysis. Suggest reorder as clinically indicated. Performed By: #### 2 4323-04, ####[facility] LABCLIA [id number] [place] [address] [place] Bilirubin [Mass/Vol] 0.8 mg/dL Normal 0.2-1.3 [facility] Comment on above: Order Comment: Speci men Type: BLOOD SPECIMENOrdering Facility: [facility] Address: [address] [place] [address] Performed By: #### 2 [id number]-, ####[facility] LABCLIA [id number] [place] [id number] [place] Calcium [Mass/Vol] 8.8 mg/dL Normal 8.5-10.2 [facility] Comment on above: Order Comment: Speci men Type: BLOOD SPECIMENOrdering Facility: [facility] Address: [address] [place], [place] [address] Performed By: #### 2 4323-8, ####[facility] LABCLIA [id number] [place] [address] [place] Chloride [Moles/Vol] 101 mmol/L Normal 98-107 [facility] Comment on above: Order Comment: Speci men Type: BLOOD SPECIMENOrdering Facility: [facility] Address: [address] [place] [address] Performed By: #### 2 432-8, ####[facility] LABCLIA [id number] [place] [address] [place] CO2 [Moles/Vol] 30 mmol/L Normal 22-30 [facility] Comment on above: Order Comment: Speci men Type: BLOOD SPECIMENOrdering Facility: [facility] Address: [address] [place] [address] Performed By: #### 2 4323-8, ####[facility] LABCLIA [id number] [place] [address] [place] Creatinine [Mass/Vol] 2.02 mg/dL High 0.73-1.22 [facility] Comment on above: Order Comment: Speci men Type: BLOOD SPECIMENOrdering Facility: [facility] Address: [address] [place] [address] Performed By: #### 2 4323-8, ####[facility] LABCLIA [id number] [place] [address] [place] Creatinine and Glomerular filtration rate.predicted panel (S/P/Bld) 32 mL/min/1.73m??? Low >=60 [facility] Comment on above: Order Comment: Dylan olvera Type: BLOOD SPECIMENOrdering Facility: [facility] Address: [address] [place] [address] Result Comment: Etta mated Glomerular Filtration Rate [...] actual GFR. Performed By: #### 2 4323-8, 12915-7 ####[facility] LABCLIA [id number] [place] [address] [place] Glucose [Mass/Vol] 121 mg/dL High 74-99 [facility] Comment on above: Order Comment: Dylan olvera Type: BLOOD SPECIMENOrdering Facility: [facility] Address: [address] [place] [address] Result Comment: The [place] Diabetes Association (ADA) provides guidance for cutoff [...] Standards of Medical Care in Diabetes 2016, [place] [employer]. Diabetes Care. 2016.39(Suppl 1). Performed By: #### 2 4323-8, 28286-3 ####[facility] LABIA [id number] [place] [address] [place] Potassium [Moles/Vol] 4.2 mmol/L Normal 3.7-5.1 [facility] Comment on above: Order Comment: Dylan olvera Type: BLOOD SPECIMENOrdering Facility: [facility] Address: [address] [place], [place] [address] Performed By: #### 2 4323-8, ####[facility] LABCLIA [id number] [address] [address] [place] Protein [Mass/Vol] 6.2 g/dL Low 6.3-8.0 [facility] Comment on above: Order Comment: Speci men Type: BLOOD SPECIMENOrdering Facility: [facility] Address: [address] [place], [place] [address] Performed By: #### 2 432-8, ####[facility] LABCLIA [id number] [place] [address] [place] Sodium [Moles/Vol] 141 mmol/L Normal 136-144 [facility] Comment on above: Order Comment: Speci men Type: BLOOD SPECIMENOrdering Facility: [facility] Address: [address] [place] [address] Performed By: #### 2 4323-8, ####[facility] LABIA [id number] [place] [address] [place] Urea nitrogen [Mass/Vol] 40 mg/dL High 9-24 [facility] Comment on above: Order Comment: Speci men Type: BLOOD SPECIMENOrdering Facility: [facility] Address: [address] [place], [place] [address] Performed By: #### 2 4323-8, ####[facility] LABIA [id number] [place] [id number] [place] Magnesium SerPl-mCncon 07-26 Magnesium [Mass/Vol] 2.5 mg/dL High 1.7-2.3 [facility] Comment on above: Order Comment: Speci men Type: BLOOD SPECIMENOrdering Facility: [facility] Address: [address] [place], [place] [address] Performed By: #### 2 4323-8, 32066-6 ####[facility] LABCLIA [id number] [address] [address] [place] PT EDon 07-26-2024 PT ED Normal [facility] THERAPY NTon 07-26-2024 THERAPY NT Normal [facility] Basic metabolic 2000 panelon 07-25-2024 Anion gap [Moles/Vol] 13 mmol/L Normal 8-15 [facility] Comment on above: Order Comment: Speci men Type: BLOOD SPECIMENOrdering Facility: [facility] Address: [address] [place], [place] [address] Performed By: #### 1 9123-9, 77755-9 ####[facility] LABCLIA [id number] [place] [id number] [place] Calcium [Mass/Vol] 8.9 mg/dL Normal 8.5-10.2 [facility] Comment on above: Order Comment: Speci men Type: BLOOD SPECIMENOrdering Facility: [facility] Address: [address] [place], [place] [address] Performed By: #### 1 9123-9, 77119-8 ####[facility] LABCLIA [id number] [place] [address] [place] Chloride [Moles/Vol] 99 mmol/L Normal 98-107 [facility] Comment on above: Order Comment: Speci men Type: BLOOD SPECIMENOrdering Facility: [facility] Address: [address] [place] [address] Performed By: #### 1 9123-9, 82097-8 ####[facility] LABCLIA [id number] [address] [address] [place] CO2 [Moles/Vol] 29 mmol/L Normal 22-30 [facility] Comment on above: Order Comment: Speci men Type: BLOOD SPECIMENOrdering Facility: [facility] Address: [address] [place] [address] Performed By: #### 1 9123-9, 62935-2 ####[facility] LABIA [id number] [place] [address] [place] Creatinine [Mass/Vol] 1.99 mg/dL High 0.73-1.22 [facility] Comment on above: Order Comment: Speci men Type: BLOOD SPECIMENOrdering Facility: [facility] Address: [address] [place] [address] Performed By: #### 1 9123-9, 71847-6 ####[facility] LABIA [id number] [place] [address] [place] Creatinine and Glomerular filtration rate.predicted panel (S/P/Bld) 33 mL/min/1.73m??? Low >=60 [facility] Comment on above: Order Comment: Dylan olvera Type: BLOOD SPECIMENOrdering Facility: [facility] Address: [address] [place] [address] Result Comment: Etta mated Glomerular Filtration Rate [...] actual GFR. Performed By: #### 1 9123-9, 54551-8 ####[facility] LABIA [id number] [place] [address] [place] Glucose [Mass/Vol] 92 mg/dL Normal 74-99 [facility] Comment on above: Order Comment: Rozi may Type: BLOOD SPECIMENOrdering Facility: [facility] Address: [address] [place] [address] Result Comment: The [place] Diabetes Association (ADA) provides guidance for cutoff [...] Standards of Medical Care in Diabetes 2016, [place] [employer]. Diabetes Care. 2016.39(Suppl 1). Performed By: #### 1 9123-9, 11576-8 ####[facility] LABCLIA [id number] [place] [address] [place] Potassium [Moles/Vol] 3.2 mmol/L Low 3.7-5.1 [facility] Comment on above: Order Comment: Speci men Type: BLOOD SPECIMENOrdering Facility: [facility] Address: [address] [place] [address] Performed By: #### 1 91239, 12655-4 ####[facility] LABIA [id number] [place] [address] [place] Sodium [Moles/Vol] 141 mmol/L Normal 136-144 [facility] Comment on above: Order Comment: Rozi may Type: BLOOD SPECIMENOrdering Facility: [facility] Address: [address] [place] [address] Performed By: #### 1 9123-9, 93509-1 ####[facility] LABIA [id number] [place] [address] [place] Urea nitrogen [Mass/Vol] 40 mg/dL High 9-24 [facility] Comment on above: Order Comment: Speci men Type: BLOOD SPECIMENOrdering Facility: [facility] Address: [address] [place] [address] Performed By: #### 1 9123-9, 10331-8 ####[facility] LABCLIA [id number] [place] [id number] [place] CBC panel Auto (Bld)on 07-25 Erythrocyte distribution width (RBC) [Ratio] 17.3 % High 11.5-15.0 [facility] Comment on above: Order Comment: Speci men Type: BLOOD SPECIMENOrdering Facility: [facility] Address: [address] [place] [address] Performed By: #### 5 8410-2 ####[facility] LABCLIA [id number] [place] [address] [place] Hematocrit (Bld) [Volume fraction] 41.7 % Normal 39.0-51.0 [facility] Comment on above: Order Comment: Speci men Type: BLOOD SPECIMENOrdering Facility: [facility] Address: [address] [place] [address] Performed By: #### 5 8410-2 ####[facility] LABIA [id number] [place] [address] [place] Hemoglobin (Bld) [Mass/Vol] 12.8 g/dL Low 13.0-17.0 [facility] Comment on above: Order Comment: Speci men Type: BLOOD SPECIMENOrdering Facility: [facility] Address: [address] [place] [address] Performed By: #### 5 8410-2 ####[facility] LABIA [id number] [place] [address] [place] MCH (RBC) [Entitic mass] 27.9 pg Normal 26.0-34.0 [facility] Comment on above: Order Comment: Speci men Type: BLOOD SPECIMENOrdering Facility: [facility] Address: [address] [place] [address] Performed By: #### 5 8410-2 ####[facility] LABCLIA [id number] [place] [address] [place] MCHC (RBC) [Mass/Vol] 30.7 g/dL Normal 30.5-36.0 [facility] Comment on above: Order Comment: Speci men Type: BLOOD SPECIMENOrdering Facility: [facility] Address: [address] [place] [address] Performed By: #### 5 8410-2 ####[facility] LABCLIA [id number] [place] [address] [place] MCV (RBC) [Entitic vol] 91.0 fL Normal 80.0-100.0 [facility] Comment on above: Order Comment: Speci men Type: BLOOD SPECIMENOrdering Facility: [facility] Address: [address] [place] [address] Performed By: #### 5 8410-2 ####[facility] LABCLIA [id number] [place] [address] [place] Nucleated RBC (Bld) [#/Vol] 10*3/uL Normal <0.01 [facility] Comment on above: Order Comment: Speci men Type: BLOOD SPECIMENOrdering Facility: [facility] Address: [address] [place] [address] Performed By: #### 5 8410-2 ####[facility] LABCLIA [id number] [place] [address] [place] Platelet mean volume (Bld) [Entitic vol] 10.4 fL Normal 9.0-12.7 [facility] Comment on above: Order Comment: Speci men Type: BLOOD SPECIMENOrdering Facility: [facility] Address: [address] [place] [address] Performed By: #### 5 8410-2 ####[facility] LABCLIA [id number] [place] [address] [place] Platelets (Bld) [#/Vol] 150 10*3/uL Normal 150-400 [facility] Comment on above: Order Comment: Speci men Type: BLOOD SPECIMENOrdering Facility: [facility] Address: [address] [place] [address] Performed By: #### 5 8410-2 ####[facility] LABCLIA [id number] [address] [address] [place] RBC (Bld) [#/Vol] 4.58 10*6/uL Normal 4.20-6.00 [facility] Comment on above: Order Comment: Speci men Type: BLOOD SPECIMENOrdering Facility: [facility] Address: [address] [place] [address] Performed By: #### 5 8410-2 ####[facility] LABIA [id number] [place] [id number] [place] WBC (Bld) [#/Vol] 5.10 10*3/uL Normal 3.70-11.00 [facility] Comment on above: Order Comment: Speci men Type: BLOOD SPECIMENOrdering Facility: [facility] Address: [address] [place] [address] Performed By: #### 5 8410-2 ####[facility] [id number] [place] [id number] [place] Magnesium SerPl-mCncon 07-25 Magnesium [Mass/Vol] 2.3 mg/dL Normal 1.7-2.3 [facility] Comment on above: Order Comment: Speci men Type: BLOOD SPECIMENOrdering Facility: [facility] Address: [address] [place] [address] Performed By: #### 1 9123-9, 57909-1 ####[facility] LABIA [id number] [place] [id number] [place] NUTRITIONon 07-25-2024 NUTRITION Normal [facility] PT EDon 07-25-2024 PT ED Normal [facility] Basic metabolic 2000 panelon 07-24-2024 Anion gap [Moles/Vol] 15 mmol/L Normal 8-15 [facility] Comment on above: Order Comment: Speci men Type: BLOOD SPECIMENOrdering Facility: [facility] Address: [address] [place] [address] Performed By: #### 1 9123-9, 27138-7 ####[facility] LABCLIA [id number] [place] [address] [place] Calcium [Mass/Vol] 8.6 mg/dL Normal 8.5-10.2 [facility] Comment on above: Order Comment: Speci men Type: BLOOD SPECIMENOrdering Facility: [facility] Address: [address] [place] [address] Performed By: #### 1 9, 04220-3 ####[facility] LABCLIA [id number] [place] [address] [place] Chloride [Moles/Vol] 100 mmol/L Normal 98-107 [facility] Comment on above: Order Comment: Speci men Type: BLOOD SPECIMENOrdering Facility: [facility] Address: [address] [place] [address] Performed By: #### 1 9123-05, 25906-1 ####[facility] LABCLIA [id number] [place] [address] [place] CO2 [Moles/Vol] 25 mmol/L Normal 22-30 [facility] Comment on above: Order Comment: Speci men Type: BLOOD SPECIMENOrdering Facility: [facility] Address: [address] [place], [place] [address] Performed By: #### 1 9123-05, 11921-2 ####[facility] LABCLIA [id number] [place] [address] [place] Creatinine [Mass/Vol] 1.96 mg/dL High 0.73-1.22 [facility] Comment on above: Order Comment: Speci men Type: BLOOD SPECIMENOrdering Facility: [facility] Address: [address] [place], [place] [address] Performed By: #### 1 91239, 69452-5 ####[facility] LABCLIA [id number] [place] [address] [place] Creatinine and Glomerular filtration rate.predicted panel (S/P/Bld) 34 mL/min/1.73m??? Low >=60 [facility] Comment on above: Order Comment: Dylan olvera Type: BLOOD SPECIMENOrdering Facility: [facility] Address: [address] [place] [address] Result Comment: Etta mated Glomerular Filtration Rate [...] actual GFR. Performed By: #### 1 9123-9, 56632-0 ####[facility] LABCLIA [id number] [place] [address] [place] Glucose [Mass/Vol] 80 mg/dL Normal 74-99 [facility] Comment on above: Order Comment: Dylan olvera Type: BLOOD SPECIMENOrdering Facility: [facility] Address: [address] [place] [address] Result Comment: The [place] [employer] Association (ADA) provides guidance for cutoff [...] Standards of Medical Care in Diabetes 2016, [place] [employer]. Diabetes Care. 2016.39(Suppl 1). Performed By: #### 1 9123-9, 90647-5 ####[facility] LABCLIA [id number] [place] [address] [place] Potassium [Moles/Vol] 3.4 mmol/L Low 3.7-5.1 [facility] Comment on above: Order Comment: Speci men Type: BLOOD SPECIMENOrdering Facility: [facility] Address: [address] [place] [address] Performed By: #### 1 9123-9, 50424-7 ####[facility] LABCLIA [id number] [facility] [place] [address] [place] Sodium [Moles/Vol] 140 mmol/L Normal 136-144 [facility] Comment on above: Order Comment: Speci men Type: BLOOD SPECIMENOrdering Facility: [facility] Address: [address] [place] [address] Performed By: #### 1 9123-9, 75756-6 ####[facility] LABCLIA [id number] [place] [address] [place] Urea nitrogen [Mass/Vol] 40 mg/dL High 9-24 [facility] Comment on above: Order Comment: Speci men Type: BLOOD SPECIMENOrdering Facility: [facility] Address: [address] [place] [address] Performed By: #### 1 9123-9, ####[facility] LABCLIA [id number] [place] [address] [place] CASE MANAGEMon 07-24-2024 CASE MANAGEM Normal [facility] CBC panel Auto (Bld)on 07-24 Erythrocyte distribution width (RBC) [Ratio] 17.2 % High 11.5-15.0 [facility] Comment on above: Order Comment: Speci men Type: BLOOD SPECIMENOrdering Facility: [facility] Address: [address] [place] [address] Performed By: #### 5 8410-2 ####[facility] LABCLIA [id number] [place] [id number] [place] Hematocrit (Bld) [Volume fraction] 41.8 % Normal 39.0-51.0 [facility] Comment on above: Order Comment: Speci men Type: BLOOD SPECIMENOrdering Facility: [facility] Address: [address] [place] [address] Performed By: #### 5 8410-2 ####[facility] LABIA [id number] [place] [address] [place] Hemoglobin (Bld) [Mass/Vol] 13.1 g/dL Normal 13.0-17.0 [facility] Comment on above: Order Comment: Speci men Type: BLOOD SPECIMENOrdering Facility: [facility] Address: [address] [place] [address] Performed By: #### 5 8410-2 ####[facility] [id number] [place] [address] [place] MCH (RBC) [Entitic mass] 28.2 pg Normal 26.0-34.0 [facility] Comment on above: Order Comment: Speci men Type: BLOOD SPECIMENOrdering Facility: [facility] Address: [address] [place] [address] Performed By: #### 5 8410-2 ####[facility] [id number] [place] [address] [place] MCHC (RBC) [Mass/Vol] 31.3 g/dL Normal 30.5-36.0 [facility] Comment on above: Order Comment: Speci men Type: BLOOD SPECIMENOrdering Facility: [facility] Address: [address] [place] [address] Performed By: #### 5 8410-2 ####[facility] [id number] [place] [address] [place] MCV (RBC) [Entitic vol] 90.1 fL Normal 80.0-100.0 [facility] Comment on above: Order Comment: Speci men Type: BLOOD SPECIMENOrdering Facility: [facility] Address: [address] [place] [address] Performed By: #### 5 8410-2 ####[facility] LABCLIA [id number] [place] [address] [place] Nucleated RBC (Bld) [#/Vol] 10*3/uL Normal <0.01 [facility] Comment on above: Order Comment: Speci men Type: BLOOD SPECIMENOrdering Facility: [facility] Address: [address] [place] [address] Performed By: #### 5 8410-2 ####[facility] LABIA [id number] [place] [address] [place] Platelet mean volume (Bld) [Entitic vol] 11.2 fL Normal 9.0-12.7 [facility] Comment on above: Order Comment: Speci men Type: BLOOD SPECIMENOrdering Facility: [facility] Address: [address] [place] [address] Performed By: #### 5 8410-2 ####[facility] LABIA [id number] [place] [address] [place] Platelets (Bld) [#/Vol] 155 10*3/uL Normal 150-400 [facility] Comment on above: Order Comment: Speci men Type: BLOOD SPECIMENOrdering Facility: [facility] Address: [address] [place] [address] Performed By: #### 5 8410-2 ####[facility] LABIA [id number] [place] [address] [place] RBC (Bld) [#/Vol] 4.64 10*6/uL Normal 4.20-6.00 [facility] Comment on above: Order Comment: Speci men Type: BLOOD SPECIMENOrdering Facility: [facility] Address: [address] [place] [address] Performed By: #### 5 8410-2 ####[facility] LABIA [id number] [place] [id number] [place] WBC (Bld) [#/Vol] 5.21 10*3/uL Normal 3.70-11.00 [facility] Comment on above: Order Comment: Speci men Type: BLOOD SPECIMENOrdering Facility: [facility] Address: [address] [place] [address] Performed By: #### 5 8410-2 ####[facility] LABCLIA [id number] [place] [address] [place] CNCNPATEDon 07-24-2024 CNCNPATED Normal [facility] HOLTER 48 HOUR J2on 07-24-20 24 HOLTER 48 HOUR J2 Normal [facility] Magnesium SerPl-mCncon 07-24 Magnesium [Mass/Vol] 2.2 mg/dL Normal 1.7-2.3 [facility] Comment on above: Order Comment: Speci men Type: BLOOD SPECIMENOrdering Facility: [facility] Address: [address] [place] [address] Performed By: #### 1 9123-9, 49014-3 ####[facility] LABIA [id number] [place] [address] [place] NURSING PROGon 07-24-2024 NURSING PROG Normal [facility] Basic metabolic 2000 panelon 07-23-2024 Anion gap [Moles/Vol] 15 mmol/L Normal 8-15 [facility] Comment on above: Order Comment: Speci men Type: BLOOD SPECIMENOrdering Facility: [facility] Address: [address] [place] [address] Performed By: #### 2 4321-2, 77491-0 ####[facility] LABIA [id number] [place] [address] [place] Calcium [Mass/Vol] 8.7 mg/dL Normal 8.5-10.2 [facility] Comment on above: Order Comment: Speci men Type: BLOOD SPECIMENOrdering Facility: [facility] Address: [address] [place] [address] Performed By: #### 2 432-2, ####[facility] LABCLIA [id number] [address] [address] [place] Chloride [Moles/Vol] 101 mmol/L Normal 98-107 [facility] Comment on above: Order Comment: Speci men Type: BLOOD SPECIMENOrdering Facility: [facility] Address: [address] [place] [address] Performed By: #### 2 432-2, ####[facility] LABCLIA [id number] [place] [address] [place] CO2 [Moles/Vol] 21 mmol/L Low 22-30 [facility] Comment on above: Order Comment: Speci men Type: BLOOD SPECIMENOrdering Facility: [facility] Address: [address] [place] [address] Performed By: #### 2 4322, ####[facility] LABCLIA [id number] [place] [address] [place] Creatinine [Mass/Vol] 1.96 mg/dL High 0.73-1.22 [facility] Comment on above: Order Comment: Speci men Type: BLOOD SPECIMENOrdering Facility: [facility] Address: [address] [place] [address] Performed By: #### 2 432-2, ####[facility] LABCLIA [id number] [place] [id number] [place] Creatinine and Glomerular filtration rate.predicted panel (S/P/Bld) 34 mL/min/1.73m??? Low >=60 [facility] Comment on above: Order Comment: Speci men Type: BLOOD SPECIMENOrdering Facility: [facility] Address: [address] [place] [address] Result Comment: Etta mated Glomerular Filtration Rate [...] actual GFR. Performed By: #### 2 432-, ####[facility] LABCLIA [id number] [address] [id number] [place] Glucose [Mass/Vol] 75 mg/dL Normal 74-99 [facility] Comment on above: Order Comment: Dylan olvera Type: BLOOD SPECIMENOrdering Facility: [facility] Address: [address] [place] [address] Result Comment: The [place] [employer] (ADA) provides guidance for cutoff [...] Standards of Medical Care in Diabetes 2016, [place] [employer]. Diabetes Care. 2016.39(Suppl 1). Performed By: #### 2 4320-10, ####[facility] LABCLIA [id number] [address] [address] [place] Potassium [Moles/Vol] 4.1 mmol/L Normal 3.7-5.1 [facility] Comment on above: Order Comment: Dylan olvera Type: BLOOD SPECIMENOrdering Facility: [facility] Address: [address] [place] [address] Performed By: #### 2 432-, ####[facility] LABCLIA [id number] [address] [address] [place] Sodium [Moles/Vol] 137 mmol/L Normal 136-144 [facility] Comment on above: Order Comment: Speci men Type: BLOOD SPECIMENOrdering Facility: [facility] Address: [address] [place] [address] Performed By: #### 2 4321-2, ####[facility] LABCLIA [id number] [place] [address] [place] Urea nitrogen [Mass/Vol] 38 mg/dL High 9-24 [facility] Comment on above: Order Comment: Speci men Type: BLOOD SPECIMENOrdering Facility: [facility] Address: [address] [place] [address] Performed By: #### 2 4321-2, ####[facility] LABCLIA [id number] [place] [address] [place] CBC panel Auto (Bld)on 07-23 Erythrocyte distribution width (RBC) [Ratio] 17.5 % High 11.5-15.0 [facility] Comment on above: Order Comment: Speci men Type: BLOOD SPECIMENOrdering Facility: [facility] Address: [address] [place] [address] Performed By: #### 5 8410-2 ####[facility] LABCLIA [id number] [place] [address] [place] Hematocrit (Bld) [Volume fraction] 42.9 % Normal 39.0-51.0 [facility] Comment on above: Order Comment: Speci men Type: BLOOD SPECIMENOrdering Facility: [facility] Address: [address] [place] [address] Performed By: #### 5 8410-2 ####[facility] LABCLIA [id number] [place] [address] [place] Hemoglobin (Bld) [Mass/Vol] 12.7 g/dL Low 13.0-17.0 [facility] Comment on above: Order Comment: Speci men Type: BLOOD SPECIMENOrdering Facility: [facility] Address: [address] [place] [address] Performed By: #### 5 8410-2 ####[facility] LABIA [id number] [place] [address] [place] MCH (RBC) [Entitic mass] 28.2 pg Normal 26.0-34.0 [facility] Comment on above: Order Comment: Speci men Type: BLOOD SPECIMENOrdering Facility: [facility] Address: [address] [place] [address] Performed By: #### 5 8410-2 ####[facility] [id number] [place] [address] [place] MCHC (RBC) [Mass/Vol] 29.6 g/dL Low 30.5-36.0 [facility] Comment on above: Order Comment: Speci men Type: BLOOD SPECIMENOrdering Facility: [facility] Address: [address] [place] [address] Performed By: #### 5 8410-2 ####[facility] [id number] [place] [address] [place] MCV (RBC) [Entitic vol] 95.3 fL Normal 80.0-100.0 [facility] Comment on above: Order Comment: Speci men Type: BLOOD SPECIMENOrdering Facility: [facility] Address: [address] [place] [address] Performed By: #### 5 8410-2 ####[facility] LABIA [id number] [place] [address] [place] Nucleated RBC (Bld) [#/Vol] 10*3/uL Normal <0.01 [facility] Comment on above: Order Comment: Speci men Type: BLOOD SPECIMENOrdering Facility: [facility] Address: [address] [place] [address] Performed By: #### 5 8410-2 ####[facility] LABCLIA [id number] [place] [address] [place] Platelet mean volume (Bld) [Entitic vol] 11.0 fL Normal 9.0-12.7 [facility] Comment on above: Order Comment: Speci men Type: BLOOD SPECIMENOrdering Facility: [facility] Address: [address] [place] [address] Performed By: #### 5 8410-2 ####[facility] LABCLIA [id number] [place] [address] [place] Platelets (Bld) [#/Vol] 150 10*3/uL Normal 150-400 [facility] Comment on above: Order Comment: Speci men Type: BLOOD SPECIMENOrdering Facility: [facility] Address: [address] [place] [address] Performed By: #### 5 8410-2 ####[facility] LABIA [id number] [place] [address] [place] RBC (Bld) [#/Vol] 4.50 10*6/uL Normal 4.20-6.00 [facility] Comment on above: Order Comment: Speci men Type: BLOOD SPECIMENOrdering Facility: [facility] Address: [address] [place] [address] Performed By: #### 5 8410-2 ####[facility] LABIA [id number] [place] [address] [place] WBC (Bld) [#/Vol] 6.09 10*3/uL Normal 3.70-11.00 [facility] Comment on above: Order Comment: Speci men Type: BLOOD SPECIMENOrdering Facility: [facility] Address: [address] [place] [address] Performed By: #### 5 8410-2 ####[facility] LABIA [id number] [place] [address] [place] CONSULTon 07-23-2024 CONSULT Normal [facility] Magnesium SerPl-mCncon 07-23 Magnesium [Mass/Vol] 2.3 mg/dL Normal 1.7-2.3 [facility] Comment on above: Order Comment: Speci men Type: BLOOD SPECIMENOrdering Facility: [facility] Address: [address] [place] [address] Performed By: #### 2 4321-2, 14676-6 ####[facility] LABCLIA [id number] [place] [address] [place] NM CARDIAC AMYLOID SPECT/[employer] mechanical n 07-23-2024 NM CARDIAC AMYLOID SPECT/CT Normal [facility] NUTRITIONon 07-23-2024 NUTRITION Normal [facility] Basic metabolic 2000 panelon 07-22-2024 Anion gap [Moles/Vol] 14 mmol/L Normal 8-15 [facility] Comment on above: Order Comment: Speci men Type: BLOOD SPECIMENOrdering Facility: [facility] Address: [address] [place] [address] Performed By: #### 2 4321-2 ####[facility] LABCLIA [id number] [place] [address] [place] Calcium [Mass/Vol] 9.1 mg/dL Normal 8.5-10.2 [facility] Comment on above: Order Comment: Speci men Type: BLOOD SPECIMENOrdering Facility: [facility] Address: [address] [place], [place] [address] Performed By: #### 2 4321-2 ####[facility] LABCLIA [id number] [place] [address] [place] Chloride [Moles/Vol] 100 mmol/L Normal 98-107 [facility] Comment on above: Order Comment: Speci men Type: BLOOD SPECIMENOrdering Facility: [facility] Address: [address] [place], [place] [address] Performed By: #### 2 4321-2 ####[facility] LABCLIA [id number] [facility] [place] [address] [place] CO2 [Moles/Vol] 25 mmol/L Normal 22-30 [facility] Comment on above: Order Comment: Speci men Type: BLOOD SPECIMENOrdering Facility: [facility] Address: [address] [place] [address] Performed By: #### 2 4321-2 ####[facility] LABCLIA [id number] [place] [address] [place] Creatinine [Mass/Vol] 2.30 mg/dL High 0.73-1.22 [facility] Comment on above: Order Comment: Speci men Type: BLOOD SPECIMENOrdering Facility: [facility] Address: [address] [place] [address] Performed By: #### 2 4321-2 ####[facility] LABIA [id number] [place] [address] [place] Creatinine and Glomerular filtration rate.predicted panel (S/P/Bld) 28 mL/min/1.73m??? Low >=60 [facility] Comment on above: Order Comment: Speci men Type: BLOOD SPECIMENOrdering Facility: [facility] Address: [address] [place] [address] Result Comment: Etta mated Glomerular Filtration Rate [...] actual GFR. Performed By: #### 2 4321-2 ####[facility] LABIA [id number] [place] [address] [place] Glucose [Mass/Vol] 114 mg/dL High 74-99 [facility] Comment on above: Order Comment: Speci men Type: BLOOD SPECIMENOrdering Facility: [facility] Address: [address] [place] [address] Result Comment: The [place] [employer] Association (ADA) provides guidance for cutoff [...] Standards of Medical Care in Diabetes 2016, [place] [employer]. Diabetes Care. 2016.39(Suppl 1). Performed By: #### 2 4321-2 ####[facility] LABCLIA [id number] [place] [address] [place] Potassium [Moles/Vol] 3.9 mmol/L Normal 3.7-5.1 [facility] Comment on above: Order Comment: Speci men Type: BLOOD SPECIMENOrdering Facility: [facility] Address: [address] [place] [address] Performed By: #### 2 4321-2 ####[facility] LABIA [id number] [place] [address] [place] Sodium [Moles/Vol] 139 mmol/L Normal 136-144 [facility] Comment on above: Order Comment: Speci men Type: BLOOD SPECIMENOrdering Facility: [facility] Address: [address] [place] [address] Performed By: #### 2 4321-2 ####[facility] LABIA [id number] [place] [address] [place] Urea nitrogen [Mass/Vol] 39 mg/dL High 9-24 [facility] Comment on above: Order Comment: Speci men Type: BLOOD SPECIMENOrdering Facility: [facility] Address: [address] [place] [address] Performed By: #### 2 4321-2 ####[facility] LABCLIA [id number] [place] [address] [place] CASE MGT INIT ASSESon 2023 CASE MGT INIT ASSES Normal [facility] CBC panel Auto (Bld)on 07-22 Erythrocyte distribution width (RBC) [Ratio] 17.0 % High 11.5-15.0 [facility] Comment on above: Order Comment: Speci men Type: BLOOD SPECIMENOrdering Facility: [facility] Address: [address] [place] [address] Performed By: #### 5 8410-2 ####[facility] LABIA [id number] [place] [address] [place] Hematocrit (Bld) [Volume fraction] 41.8 % Normal 39.0-51.0 [facility] Comment on above: Order Comment: Speci men Type: BLOOD SPECIMENOrdering Facility: [facility] Address: [address] [place] [address] Performed By: #### 5 8410-2 ####[facility] LABIA [id number] [place] [address] [place] Hemoglobin (Bld) [Mass/Vol] 13.3 g/dL Normal 13.0-17.0 [facility] Comment on above: Order Comment: Speci men Type: BLOOD SPECIMENOrdering Facility: [facility] Address: [address] [place] [address] Performed By: #### 5 8410-2 ####[facility] LABIA [id number] [place] [address] [place] MCH (RBC) [Entitic mass] 29.0 pg Normal 26.0-34.0 [facility] Comment on above: Order Comment: Speci men Type: BLOOD SPECIMENOrdering Facility: [facility] Address: [address] [place] [address] Performed By: #### 5 8410-2 ####[facility] LABIA [id number] [place] [address] [place] MCHC (RBC) [Mass/Vol] 31.8 g/dL Normal 30.5-36.0 [facility] Comment on above: Order Comment: Speci men Type: BLOOD SPECIMENOrdering Facility: [facility] Address: [address] [place] [address] Performed By: #### 5 8410-2 ####[facility] LABIA [id number] [place] [address] [place] MCV (RBC) [Entitic vol] 91.1 fL Normal 80.0-100.0 [facility] Comment on above: Order Comment: Speci men Type: BLOOD SPECIMENOrdering Facility: [facility] Address: [address] [place] [address] Performed By: #### 5 8410-2 ####[facility] [id number] [place] [address] [place] Nucleated RBC (Bld) [#/Vol] 10*3/uL Normal <0.01 [facility] Comment on above: Order Comment: Speci men Type: BLOOD SPECIMENOrdering Facility: [facility] Address: [address] [place] [address] Performed By: #### 5 8410-2 ####[facility] [id number] [place] [address] [place] Platelet mean volume (Bld) [Entitic vol] 10.9 fL Normal 9.0-12.7 [facility] Comment on above: Order Comment: Speci men Type: BLOOD SPECIMENOrdering Facility: [facility] Address: [address] [place] [address] Performed By: #### 5 8410-2 ####[facility] [id number] [address] [id number] [address] [place] Platelets (Bld) [#/Vol] 171 10*3/uL Normal 150-400 [facility] Comment on above: Order Comment: Speci men Type: BLOOD SPECIMENOrdering Facility: [facility] Address: [address] [place] [address] Performed By: #### 5 8410-2 ####[facility] LABCLIA [id number] [place] [address] [place] RBC (Bld) [#/Vol] 4.59 10*6/uL Normal 4.20-6.00 [facility] Comment on above: Order Comment: Speci men Type: BLOOD SPECIMENOrdering Facility: [facility] Address: [address] [place] [address] Performed By: #### 5 8410-2 ####[facility] LABCLIA [id number] [place] [address] [place] WBC (Bld) [#/Vol] 5.01 10*3/uL Normal 3.70-11.00 [facility] Comment on above: Order Comment: Speci men Type: BLOOD SPECIMENOrdering Facility: [facility] Address: [address] [place] [address] Performed By: #### 5 8410-2 ####[facility] LABIA [id number] [place] [address] [place] ECG COMPLETEon 07-22-2024 ECG COMPLETE Normal [facility] HOLTER 24 HOUR J2on 07-22-20 24 HOLTER 24 HOUR J2 Normal [facility] IMMUNOFIXATION SCREEN, SERUM on 07-22-2024 MPA RESULT No M protein is identified. Normal No M protein is identified. [facility] Comment on above: Order Comment: Speci men Type: BLOOD SPECIMENOrdering Facility: [facility] Address: [address] [place] [address] Performed By: #### I [facility] ####[facility] LABCLIA [id number] [place] [address] [place] STAFF REVIEW (MPA) Reviewed by Kinga Leonard MD Normal [facility] Comment on above: Order Comment: Speci men Type: BLOOD SPECIMENOrdering Facility: [facility] Address: [address] [place] [address] Performed By: #### I FESC ####[facility] LABCLIA [id number] [place] [address] [place] KAPPA/HELM,FREE,SERon 2023 Immunoglobulin light chains.kappa.free (S) [Mass/Vol] 55.3 mg/L High 3.3-19.4 [facility] Comment on above: Order Comment: Speci men Type: BLOOD SPECIMENOrdering Facility: [facility] Address: [address] [place] [address] Result Comment: Rare ly, increased serum free light chains levels may not be detected or accurately quantified due to prozone phenomenon or in high viscosity samples using this immunoturbidimetric assay. Correlation with other laboratory results and clinical findings is recommended.The [place] Free Light Chain was performed using the Binding Site Optilite immunoturbidimetric method. Result obtained with different assay methods or kits cannot be used interchangeably. Performed By: #### K LFRS ####[facility] LABCLIA [id number] [place] [address] [place] Immunoglobulin light chains.kappa/Immuno globulin light chains.lambda (S) [Mass ratio] 0.93 Normal 0.26-1.65 [facility] Comment on above: Order Comment: Speci men Type: BLOOD SPECIMENOrdering Facility: [facility] Address: [address] [place] [address] Performed By: #### K LFRS ####[facility] LABCLIA [id number] [place] [address] [place] Immunoglobulin light chains.lambda.free [Mass/Vol] 59.7 mg/L High 5.7-26.3 [facility] Comment on above: Order Comment: Speci men Type: BLOOD SPECIMENOrdering Facility: [facility] Address: [address] [place] [address] Result Comment: Rare ly, increased serum free [...] used interchangeably. Performed By: #### K LFRS ####[facility] LABCLIA [id number] [place] [address] [place] MONOCLONAL PROT UR W/INTERPo n 07-22-2024 STAFF REVIEW (PA) Reviewed by Kinga Leonard MD Normal [facility] Comment on above: Order Comment: Speci men Type: URINE SPECIMENOrdering Facility: [facility] Address: [address] [place] [address] Performed By: #### U RMPA ####[facility] LABCLIA [id number] [place] [address] [place] UMPA RESULT No M protein is identified. Normal No M protein is identified. [facility] Comment on above: Order Comment: Speci men Type: URINE SPECIMENOrdering Facility: [facility] Address: [address] [place] [address] Performed By: #### U RMPA ####[facility] LABCLIA [id number] [place] [address] [place] Magnesium SerPl-mCncon 07-22 Magnesium [Mass/Vol] 2.4 mg/dL High 1.7-2.3 [facility] Comment on above: Order Comment: Speci men Type: BLOOD SPECIMENOrdering Facility: [facility] Address: [address] [place] [address] Performed By: #### 1 9123-9 ####[facility] LABIA [id number] [place] [address] [place] Prot/Creat Uron 07-22-2024 Protein/Creatinine (U) [Mass ratio] 0.36 mg/mg High <0.15 [facility] Comment on above: Order Comment: Speci men Type: URINE SPECIMENOrdering Facility: [facility] Address: [address] [place] [address] Result Comment: Adul t Proteinuria Categories:<0.15 mg/mg is considered normal to mildly increased0.15 - 0.50 mg/mg is considered moderately increased>0.50 mg/mg is considered severely increasedKDIGO. (2013). KDIGO 2012 Clinical Practice Guideline for the Evaluation and Management of Chronic Kidney Disease. Official Journal of the International Society of Nephrology, 3(1), 1-150. Performed By: #### 2 890-2 ####[facility] LABCLIA [id number] [place] [address] [place] Protein/Creatinine (U) [Mass ratio]on 07-22-2024 Creatinine (U) [Mass/Vol] 30.5 mg/dL Normal 20.0-300.0 [facility] Comment on above: Order Comment: Speci men Type: URINE SPECIMENOrdering Facility: [facility] Address: [address] [place] [address] Performed By: #### 2 890-2 ####[facility] LABIA [id number] [place] [address] [place] Protein (U) [Mass/Vol] 11 mg/dL Normal 0-20 [facility] Comment on above: Order Comment: Speci men Type: URINE SPECIMENOrdering Facility: [facility] Address: [address] [place] [address] Performed By: #### 2 890-2 ####[facility] LABIA [id number] [place] [address] [place] THERAPY NTon 07-22-2024 THERAPY NT Normal [facility] TYPE + SCREENon 07-22-2024 ABO O Normal [facility] Comment on above: Order Comment: Speci men Type: BLOOD SPECIMENOrdering Facility: [facility] Address: [address] [place] [address] Performed By: #### T SCR ####[facility] BLOOD BANKCLIA [id number] [place] [address] [place] Rh Nom (Bld) Positive Normal [facility] Comment on above: Order Comment: Speci men Type: BLOOD SPECIMENOrdering Facility: [facility] Address: [address] [place] [address] Performed By: #### T SCR ####CC MAIN BLOOD BANKIA [id number] [address] STATES OF [facility] TYPE AND SCREEN EXPIRATION 07/25/2024 23:59 Normal [facility] Comment on above: Order Comment: Speci men Type: BLOOD SPECIMENOrdering Facility: [facility] Address: [address] [place] [address] Performed By: #### T SCR ####CC [facility] BLOOD BANKCLIA [id number] [place] [address] [place] CBC W Auto Differential pane l (Bld)on 07-21-2024 Basophils (Bld) [#/Vol] 0.04 10*3/uL Normal <0.11 [facility] Comment on above: Order Comment: Speci men Type: BLOOD SPECIMENOrdering Facility: [facility] Address: [address] [place] [address] Performed By: #### 5 7021-8 ####[facility] LABCLIA [id number] [address] [place] Basophils/100 WBC (Bld) 0.7 % Normal [facility] Comment on above: Order Comment: Speci men Type: BLOOD SPECIMENOrdering Facility: [facility] Address: [address] [place] [address] Performed By: #### 5 7021-8 ####[facility] LABCLIA [id number] [place] [address] [place] Differential cell count method Nom (Bld) Auto Normal [facility] Comment on above: Order Comment: Speci men Type: BLOOD SPECIMENOrdering Facility: [facility] Address: [address] [place] [address] Performed By: #### 5 7021-8 ####[facility] LABCLIA [id number] [place] [address] [place] Eosinophils (Bld) [#/Vol] 0.08 10*3/uL Normal <0.46 [facility] Comment on above: Order Comment: Speci men Type: BLOOD SPECIMENOrdering Facility: [facility] Address: [address] [place] [address] Performed By: #### 5 7021-8 ####[facility] LABIA [id number] [place] [address] [place] Eosinophils/100 WBC (Bld) 1.4 % Normal [facility] Comment on above: Order Comment: Speci men Type: BLOOD SPECIMENOrdering Facility: [facility] Address: [address] [place] [address] Performed By: #### 5 7021-8 ####[facility] LABIA [id number] [place] [address] [place] Erythrocyte distribution width (RBC) [Ratio] 17.0 % High 11.5-15.0 [facility] Comment on above: Order Comment: Speci men Type: BLOOD SPECIMENOrdering Facility: [facility] Address: [address] [place] [address] Performed By: #### 5 7021-8 ####[facility] LABCLIA [id number] [place] [address] [place] Hematocrit (Bld) [Volume fraction] 40.7 % Normal 39.0-51.0 [facility] Comment on above: Order Comment: Speci men Type: BLOOD SPECIMENOrdering Facility: [facility] Address: [address] [place] [address] Performed By: #### 5 7021-8 ####[facility] LABCLIA [id number] [place] [address] [place] Hemoglobin (Bld) [Mass/Vol] 12.8 g/dL Low 13.0-17.0 [facility] Comment on above: Order Comment: Speci men Type: BLOOD SPECIMENOrdering Facility: [facility] Address: [address] [place] [address] Performed By: #### 5 7021-8 ####[facility] LABCLIA [id number] [place] [address] [place] Immature granulocytes (Bld) [#/Vol] 10*3/uL Normal <0.10 [facility] Comment on above: Order Comment: Speci men Type: BLOOD SPECIMENOrdering Facility: [facility] Address: [address] [place] [address] Performed By: #### 5 7021-8 ####[facility] LABCLIA [id number] [place] [address] [place] Immature granulocytes/100 WBC (Bld) 0.2 % Normal [facility] Comment on above: Order Comment: Speci men Type: BLOOD SPECIMENOrdering Facility: [facility] Address: [address] [place] [address] Performed By: #### 5 7021-8 ####[facility] LABCLIA [id number] [place] [address] [place] Lymphocytes (Bld) [#/Vol] 0.88 10*3/uL Low 1.00-4.00 [facility] Comment on above: Order Comment: Speci men Type: BLOOD SPECIMENOrdering Facility: [facility] Address: [address] [place] [address] Performed By: #### 5 7021-8 ####[facility] LABCLIA [id number] [place] [address] [place] Lymphocytes/100 WBC (Bld) 15.8 % Normal [facility] Comment on above: Order Comment: Speci men Type: BLOOD SPECIMENOrdering Facility: [facility] [facility] Address: [address] [place] [address] Performed By: #### 5 7021-8 ####[facility] LABCLIA [id number] [place] [address] [place] MCH (RBC) [Entitic mass] 28.2 pg Normal 26.0-34.0 [facility] Comment on above: Order Comment: Speci men Type: BLOOD SPECIMENOrdering Facility: [facility] Address: [address] [place] [address] Performed By: #### 5 7021-8 ####[facility] LABIA [id number] [place] [address] [place] MCHC (RBC) [Mass/Vol] 31.4 g/dL Normal 30.5-36.0 [facility] Comment on above: Order Comment: Speci men Type: BLOOD SPECIMENOrdering Facility: [facility] Address: [address] [place] [address] Performed By: #### 5 7021-8 ####[facility] LABIA [id number] [place] [address] [place] MCV (RBC) [Entitic vol] 89.6 fL Normal 80.0-100.0 [facility] Comment on above: Order Comment: Speci men Type: BLOOD SPECIMENOrdering Facility: [facility] Address: [address] [place] [address] Performed By: #### 5 7021-8 ####[facility] LABCLIA [id number] [place] [address] [place] Monocytes (Bld) [#/Vol] 0.62 10*3/uL Normal <0.87 [facility] Comment on above: Order Comment: Speci men Type: BLOOD SPECIMENOrdering Facility: [facility] Address: [address] [place] [address] Performed By: #### 5 7021-8 ####[facility] LABCLIA [id number] [place] [address] [place] Monocytes/100 WBC (Bld) 11.1 % Normal [facility] Comment on above: Order Comment: Speci men Type: BLOOD SPECIMENOrdering Facility: [facility] Address: [address] [place] [address] Performed By: #### 5 7021-8 ####[facility] LABCLIA [id number] [place] [address] [place] Neutrophils (Bld) [#/Vol] 3.95 10*3/uL Normal 1.45-7.50 [facility] Comment on above: Order Comment: Speci men Type: BLOOD SPECIMENOrdering Facility: [facility] Address: [address] [place] [address] Performed By: #### 5 7021-8 ####[facility] LABCLIA [id number] [place] [address] [place] Neutrophils/100 WBC (Bld) 70.8 % Normal [facility] Comment on above: Order Comment: Speci men Type: BLOOD SPECIMENOrdering Facility: [facility] Address: [address] [place] [address] Performed By: #### 5 7021-8 ####[facility] LABCLIA [id number] [place] [id number] [place] Nucleated RBC (Bld) [#/Vol] 10*3/uL Normal <0.01 [facility] Comment on above: Order Comment: Speci men Type: BLOOD SPECIMENOrdering Facility: [facility] Address: [address] [place] [address] Performed By: #### 5 7021-8 ####[facility] LABCLIA [id number] [place] [address] [place] Nucleated RBC/100 WBC (Bld) [Ratio] 0.0 /100 WBC Normal [facility] Comment on above: Order Comment: Speci men Type: BLOOD SPECIMENOrdering Facility: [facility] Address: [address] [place] [address] Performed By: #### 5 7021-8 ####[facility] LABCLIA [id number] [place] [address] [place] Platelet mean volume (Bld) [Entitic vol] 10.2 fL Normal 9.0-12.7 [facility] Comment on above: Order Comment: Speci men Type: BLOOD SPECIMENOrdering Facility: [facility] Address: [address] [place] [address] Performed By: #### 5 7021-8 ####[facility] LABIA [id number] [place] [address] [place] Platelets (Bld) [#/Vol] 161 10*3/uL Normal 150-400 [facility] Comment on above: Order Comment: Speci men Type: BLOOD SPECIMENOrdering Facility: [facility] Address: [address] [place] [address] Performed By: #### 5 7021-8 ####[facility] LABIA [id number] [place] [address] [place] RBC (Bld) [#/Vol] 4.54 10*6/uL Normal 4.20-6.00 [facility] Comment on above: Order Comment: Speci men Type: BLOOD SPECIMENOrdering Facility: [facility] Address: [address] [place] [address] Performed By: #### 5 7021-8 ####[facility] LABCLIA [id number] [place] [address] [place] WBC (Bld) [#/Vol] 5.58 10*3/uL Normal 3.70-11.00 [facility] Comment on above: Order Comment: Speci men Type: BLOOD SPECIMENOrdering Facility: [facility] Address: [address] [place] [address] Performed By: #### 5 7021-8 ####[facility] LABCLIA [id number] [place] [id number] [place] Comprehensive metabolic 2000 panelon 07-21-2024 Albumin [Mass/Vol] 3.6 g/dL Low 3.9-4.9 [facility] Comment on above: Order Comment: Speci men Type: BLOOD SPECIMENOrdering Facility: [facility] Address: [address] [place] [address] Performed By: #### L [id number], 19366-7, 71275-6, 07817-4 ####[facility] LABCLIA [id number] [place] [address] [place] ALP [Catalytic activity/Vol] 92 U/L Normal 38-113 [facility] Comment on above: Order Comment: Speci men Type: BLOOD SPECIMENOrdering Facility: [facility] Address: [address] [place] [address] Performed By: #### L [id number], 94343-7, 04026-2, 92889-1 ####[facility] LABCLIA [id number] [place] [address] [place] ALT [Catalytic activity/Vol] 11 U/L Normal 10-54 [facility] Comment on above: Order Comment: Speci men Type: BLOOD SPECIMENOrdering Facility: [facility] Address: [address] [place] [address] Performed By: #### L [id number], 04670-3, 34540-4, 81880-5 ####[facility] LABCLIA [id number] [place] [address] [place] Anion gap [Moles/Vol] 12 mmol/L Normal 8-15 [facility] Comment on above: Order Comment: Speci men Type: BLOOD SPECIMENOrdering Facility: [facility] Address: [address] [place] [address] Performed By: #### L AZ3169, 68398-9, 74303-3, 24213-3 ####[facility] LABCLIA [id number] [place] [address] [place] AST [Catalytic activity/Vol] 21 U/L Normal 14-40 [facility] Comment on above: Order Comment: Speci men Type: BLOOD SPECIMENOrdering Facility: [facility] Address: [address] [place] [address] Performed By: #### L [id number], 06548-7, 94952-5, 40551-0 ####[facility] LABCLIA [id number] [place] [address] [place] Bilirubin [Mass/Vol] 0.9 mg/dL Normal 0.2-1.3 [facility] Comment on above: Order Comment: Speci men Type: BLOOD SPECIMENOrdering Facility: [facility] Address: [address] [place] [address] Performed By: #### L [id number], 50914-5, 05218-7, ####[facility] LABCLIA [id number] [place] [address] [place] Calcium [Mass/Vol] 9.0 mg/dL Normal 8.5-10.2 [facility] Comment on above: Order Comment: Speci men Type: BLOOD SPECIMENOrdering Facility: [facility] Address: [address] [place] [address] Performed By: #### L FQ6231, 72658-9, 91513-3, ####[facility] LABCLIA [id number] [place] [id number] [place] Chloride [Moles/Vol] 100 mmol/L Normal 98-107 [facility] Comment on above: Order Comment: Speci men Type: BLOOD SPECIMENOrdering Facility: [facility] Address: [address] [place] [address] Performed By: #### L [id number], 50302-3, 82555-2, 78099-4 ####[facility] LABCLIA [id number] [address] [address] [place] CO2 [Moles/Vol] 25 mmol/L Normal 22-30 [facility] Comment on above: Order Comment: Speci men Type: BLOOD SPECIMENOrdering Facility: [facility] Address: [address] [place] [address] Performed By: #### L [id number], 08601-4, 34654-0, 98200-6 ####[facility] LABCLIA [id number] [place] [address] [place] Creatinine [Mass/Vol] 2.32 mg/dL High 0.73-1.22 [facility] Comment on above: Order Comment: Speci men Type: BLOOD SPECIMENOrdering Facility: [facility] Address: [address] [place] [address] Performed By: #### L IF7089, 84689-2, 16254-9, 91845-9 ####[facility] LABCLIA [id number] [place] [address] [place] Creatinine and Glomerular filtration rate.predicted panel (S/P/Bld) 27 mL/min/1.73m??? Low >=60 [facility] Comment on above: Order Comment: Speci men Type: BLOOD SPECIMENOrdering Facility: [facility] Address: [address] [place] [address] Result Comment: Etta mated Glomerular Filtration Rate [...] reflect actual GFR. Performed By: #### L [id number], 06487-1, 52076-6, ####[facility] LABCLIA [id number] [address] [address] [place] Glucose [Mass/Vol] 86 mg/dL Normal 74-99 [facility] Comment on above: Order Comment: Dylan olvera Type: BLOOD SPECIMENOrdering Facility: [facility] Address: [address] [place] [address] Result Comment: The [place] [employer] (ADA) provides guidance for cutoff [...] Standards of Medical Care in Diabetes 2016, [place] [employer]. Diabetes Care. 2016.39(Suppl 1). Performed By: #### L CU0700, 96874-2, 96392-2, ####[facility] LABCLIA [id number] [place] [address] [place] Potassium [Moles/Vol] 3.6 mmol/L Low 3.7-5.1 [facility] Comment on above: Order Comment: Dylan olvera Type: BLOOD SPECIMENOrdering Facility: [facility] Address: [address] [place] [address] Performed By: #### L FC9365, 57345-2, 46057-7, ####[facility] LABCLIA [id number] [address] [address] [place] Protein [Mass/Vol] 6.5 g/dL Normal 6.3-8.0 [facility] Comment on above: Order Comment: Speci men Type: BLOOD SPECIMENOrdering Facility: [facility] Address: [address] [place] [address] Performed By: #### L PM5675, 16534-9, 87860-9, ####[facility] LABCLIA [id number] [address] [address] [place] Sodium [Moles/Vol] 137 mmol/L Normal 136-144 [facility] Comment on above: Order Comment: Speci men Type: BLOOD SPECIMENOrdering Facility: [facility] Address: [address] [place], [place] [address] Performed By: #### L GC9591, 95817-5, 97436-2, ####[facility] LABCLIA [id number] [address] [address] [place] Urea nitrogen [Mass/Vol] 40 mg/dL High 9-24 [facility] Comment on above: Order Comment: Speci men Type: BLOOD SPECIMENOrdering Facility: [facility] Address: [address] [place], [place] [address] Performed By: #### L UN9297, 86261-1, 56224-8, ####[facility] LABCLIA [id number] [address] [address] [place] [id number] 07-21-2024 ECG01 Normal [facility] ED NOTEon 07-21-2024 ED NOTE HNO ID: [id number] Author: AMY KIM RN Service: Emergency Medicine Author Type: Registered Nurse Type: ED Notes Filed: 07/21/2024 21:41 Note Text: Report called to Inocente Crenshaw received report Normal [facility] ED PROV NOTEon 07-21-2024 ED PROV NOTE Normal [facility] ED Triage Noteon 07-21-2024 ED Triage Note Normal [facility] HIGH SENSITIVITY TROPONIN T (INITIAL)on 07-21-2024 Troponin T.cardiac High sensitivity method [Mass/Vol] 65 ng/L High <12 [facility] Comment on above: Order Comment: Speci men Type: BLOOD SPECIMENOrdering Facility: [facility] Address: [address] [place] [address] Performed By: #### L ZP1552, 79425-2, 51944-1, 73801-9 ####[facility] LABCLIA [id number] [place] [address] [place] HIGH SENSITIVITY TROPONIN T (SECOND)on 07-21-2024 Troponin T.cardiac High sensitivity method [Mass/Vol] 42 ng/L High <12 [facility] Comment on above: Order Comment: Speci men Type: BLOOD SPECIMENOrdering Facility: [facility] Address: [address] [place] [address] Performed By: #### L [id number] ####[facility] LABCLIA [id number] [place] [address] [place] HIGH SENSITIVITY TROPONIN T (THIRD) 3 HRS AFTER INITIALon 07-21-2024 Troponin T.cardiac High sensitivity method [Mass/Vol] 47 ng/L High <12 [facility] Comment on above: Order Comment: Speci men Type: BLOOD SPECIMENOrdering Facility: [facility] Address: [address] [place] [address] Performed By: #### L [id number] ####[facility] LABCLIA [id number] [place] [address] [place] HISTORY PHYSICALon HISTORY PHYSICAL Normal [facility] Magnesium SerPl-mCncon 07-21 Magnesium [Mass/Vol] 2.5 mg/dL High 1.7-2.3 [facility] Comment on above: Order Comment: Speci men Type: BLOOD SPECIMENOrdering Facility: [facility] Address: [address] [place] [address] Performed By: #### L [id number], 53052-3, 51379-0, ####[facility] LABCLIA [id number] [place] [address] [place] [facility] Natriuretic peptide.B prohormone N-Terminal [Mass/Vol] 58024 pg/mL High <450 [facility] Comment on above: Order Comment: Speci men Type: BLOOD SPECIMENOrdering Facility: [facility] Address: [address] [place] [address] Performed By: #### L [id number], 05648-2, 74042-0, 34204-6 ####[facility] LABCLIA [id number] [place] [address] [place] XR CHEST 2V FRONTAL/LATon XR CHEST 2V FRONTAL/LAT Normal [facility] CNPNon 06-02-2024 CNPN Normal [facility] ANES POSTPROC EVALon 024 ANES POSTPROC EVAL Normal [facility] CNPNon 05-20-2024 CNPN Normal [facility] CASE MANAGEMon 05-16-2024 CASE MANAGEM Normal [facility] CBC panel Auto (Bld)on 05-16 Erythrocyte distribution width (RBC) [Ratio] 19.3 % High 11.5-15.0 [facility] Comment on above: Order Comment: Speci men Type: BLOOD SPECIMENOrdering Facility: [facility] Address: [address] [place] [address] Performed By: #### 5 8410-2 ####[facility] LABIA [id number] [place] [id number] [place] Hematocrit (Bld) [Volume fraction] 31.8 % Low 39.0-51.0 [facility] Comment on above: Order Comment: Speci men Type: BLOOD SPECIMENOrdering Facility: [facility] Address: [address] [place] [address] Performed By: #### 5 8410-2 ####[facility] LABIA [id number] [place] [id number] [place] Hemoglobin (Bld) [Mass/Vol] 9.4 g/dL Low 13.0-17.0 [facility] Comment on above: Order Comment: Speci men Type: BLOOD SPECIMENOrdering Facility: [facility] Address: [address] [place] [address] Performed By: #### 5 8410-2 ####[facility] LABIA [id number] [place] [address] [place] MCH (RBC) [Entitic mass] 30.8 pg Normal 26.0-34.0 [facility] Comment on above: Order Comment: Speci men Type: BLOOD SPECIMENOrdering Facility: [facility] Address: [address] [place] [address] Performed By: #### 5 8410-2 ####[facility] LABIA [id number] [place] [address] [place] MCHC (RBC) [Mass/Vol] 29.6 g/dL Low 30.5-36.0 [facility] Comment on above: Order Comment: Speci men Type: BLOOD SPECIMENOrdering Facility: [facility] Address: [address] [place] [address] Performed By: #### 5 8410-2 ####[facility] LABIA [id number] [place] [address] [place] MCV (RBC) [Entitic vol] 104.3 fL High 80.0-100.0 [facility] Comment on above: Order Comment: Speci men Type: BLOOD SPECIMENOrdering Facility: [facility] Address: [address] [place] [address] Performed By: #### 5 8410-2 ####[facility] LABIA [id number] [place] [address] [place] Nucleated RBC (Bld) [#/Vol] 10*3/uL Normal <0.01 [facility] Comment on above: Order Comment: Speci men Type: BLOOD SPECIMENOrdering Facility: [facility] Address: [address] [place] [address] Performed By: #### 5 8410-2 ####[facility] LABCLIA [id number] [place] [address] [place] Platelet mean volume (Bld) [Entitic vol] 10.8 fL Normal 9.0-12.7 [facility] Comment on above: Order Comment: Speci men Type: BLOOD SPECIMENOrdering Facility: [facility] Address: [address] [place] [address] Performed By: #### 5 8410-2 ####[facility] LABCLIA [id number] [place] [address] [place] Platelets (Bld) [#/Vol] 158 10*3/uL Normal 150-400 [facility] Comment on above: Order Comment: Speci men Type: BLOOD SPECIMENOrdering Facility: [facility] Address: [address] [place] [address] Performed By: #### 5 8410-2 ####[facility] LABIA [id number] [place] [address] [place] RBC (Bld) [#/Vol] 3.05 10*6/uL Low 4.20-6.00 [facility] Comment on above: Order Comment: Speci men Type: BLOOD SPECIMENOrdering Facility: [facility] Address: [address] [place] [address] Performed By: #### 5 8410-2 ####[facility] LABCLIA [id number] [place] [address] [place] WBC (Bld) [#/Vol] 4.48 10*3/uL Normal 3.70-11.00 [facility] Comment on above: Order Comment: Speci men Type: BLOOD SPECIMENOrdering Facility: [facility] Address: [address] [place] [address] Performed By: #### 5 8410-2 ####[facility] LABCLIA [id number] [address] [address] [place] CNDSon 05-16-2024 CNDS Normal [facility] Renal function 2000 panelon 05-16-2024 Albumin [Mass/Vol] 3.4 g/dL Low 3.9-4.9 [facility] Comment on above: Order Comment: Speci men Type: BLOOD SPECIMENOrdering Facility: [facility] Address: [address] [place] [address] Performed By: #### 2 4362-6 ####[facility] LABCLIA [id number] [place] [address] [place] Anion gap [Moles/Vol] 9 mmol/L Normal 8-15 [facility] Comment on above: Order Comment: Speci men Type: BLOOD SPECIMENOrdering Facility: [facility] Address: [address] [place] [address] Performed By: #### 2 4362-6 ####[facility] LABCLIA [id number] [place] [address] [place] Calcium [Mass/Vol] 9.0 mg/dL Normal 8.5-10.2 [facility] Comment on above: Order Comment: Speci men Type: BLOOD SPECIMENOrdering Facility: [facility] Address: [address] [place] [address] Performed By: #### 2 4362-6 ####[facility] LABCLIA [id number] [place] [id number] [place] Chloride [Moles/Vol] 105 mmol/L Normal 98-107 [facility] Comment on above: Order Comment: Speci men Type: BLOOD SPECIMENOrdering Facility: [facility] Address: [address] [place], [place] [address] Performed By: #### 2 4362-6 ####[facility] LABCLIA [id number] [place] [address] [place] CO2 [Moles/Vol] 25 mmol/L Normal 22-30 [facility] Comment on above: Order Comment: Speci men Type: BLOOD SPECIMENOrdering Facility: [facility] Address: [address] [place] [address] Performed By: #### 2 4362-6 ####[facility] LABCLIA [id number] [place] [address] [place] Creatinine [Mass/Vol] 2.06 mg/dL High 0.73-1.22 [facility] Comment on above: Order Comment: Speci men Type: BLOOD SPECIMENOrdering Facility: [facility] Address: [address] [place] [address] Performed By: #### 2 4362-6 ####[facility] LABCLIA [id number] [place] [address] [place] [facility] Creatinine and Glomerular filtration rate.predicted panel (S/P/Bld) 32 mL/min/1.73m??? Low >=60 [facility] Comment on above: Order Comment: Speci men Type: BLOOD SPECIMENOrdering Facility: [facility] Address: [address] [place] [address] Result Comment: Etta mated Glomerular Filtration Rate [...] actual GFR. Performed By: #### 2 4362-6 ####[facility] LABCLIA [id number] [place] [address] [place] Glucose [Mass/Vol] 100 mg/dL High 74-99 [facility] Comment on above: Order Comment: Speci men Type: BLOOD SPECIMENOrdering Facility: [facility] Address: [address] [place] [address] Result Comment: The [place] [employer] (ADA) provides guidance for cutoff [...] Standards of Medical Care in Diabetes 2016, [place] [employer]. Diabetes Care. 2016.39(Suppl 1). Performed By: #### 2 4362-6 ####[facility] LABIA [id number] [place] [address] [place] Phosphate [Mass/Vol] 2.4 mg/dL Low 2.7-4.8 [facility] Comment on above: Order Comment: Speci men Type: BLOOD SPECIMENOrdering Facility: [facility] Address: [address] [place] [address] Performed By: #### 2 4362-6 ####[facility] LABIA [id number] [place] [address] [place] Potassium [Moles/Vol] 3.9 mmol/L Normal 3.7-5.1 [facility] Comment on above: Order Comment: Speci men Type: BLOOD SPECIMENOrdering Facility: [facility] Address: [address] [place] [address] Performed By: #### 2 4362-6 ####[facility] LABIA [id number] [place] [address] [place] Sodium [Moles/Vol] 139 mmol/L Normal 136-144 [facility] Comment on above: Order Comment: Speci men Type: BLOOD SPECIMENOrdering Facility: [facility] Address: [address] [place] [address] Performed By: #### 2 4362-6 ####[facility] LABCLIA [id number] [address] [address] [place] Urea nitrogen [Mass/Vol] 23 mg/dL Normal 9-24 [facility] Comment on above: Order Comment: Speci men Type: BLOOD SPECIMENOrdering Facility: [facility] Address: [address] [place] [address] Performed By: #### 2 4362-6 ####[facility] LABCLIA [id number] [address] [address] [place] CASE MANAGEMon 05-15-2024 CASE MANAGEM Normal [facility] CASE MANAGEM Normal [facility] NUTRITIONon 05-15-2024 NUTRITION Normal [facility] PT EDon 05-15-2024 PT ED Normal [facility] Renal function 2000 panelon 05-15-2024 Albumin [Mass/Vol] 3.2 g/dL Low 3.9-4.9 [facility] Comment on above: Order Comment: Speci men Type: BLOOD SPECIMENOrdering Facility: [facility] Address: [address] [place] [address] Performed By: #### 2 4362-6 ####[facility] LABCLIA [id number] [address] [address] [place] Anion gap [Moles/Vol] 9 mmol/L Normal 8-15 [facility] Comment on above: Order Comment: Speci men Type: BLOOD SPECIMENOrdering Facility: [facility] Address: [address] [place] [address] Performed By: #### 2 4362-6 ####[facility] LABCLIA [id number] [address] [address] [place] Calcium [Mass/Vol] 8.7 mg/dL Normal 8.5-10.2 [facility] Comment on above: Order Comment: Speci men Type: BLOOD SPECIMENOrdering Facility: [facility] Address: [address] [place] [address] Performed By: #### 2 4362-6 ####[facility] LABCLIA [id number] [place] [address] [place] Chloride [Moles/Vol] 107 mmol/L Normal 98-107 [facility] Comment on above: Order Comment: Speci men Type: BLOOD SPECIMENOrdering Facility: [facility] Address: [address] [place] [address] Performed By: #### 2 4362-6 ####[facility] LABCLIA [id number] [place] [address] [place] CO2 [Moles/Vol] 24 mmol/L Normal 22-30 [facility] Comment on above: Order Comment: Speci men Type: BLOOD SPECIMENOrdering Facility: [facility] Address: [address] [place] [address] Performed By: #### 2 4362-6 ####[facility] LABCLIA [id number] [place] [address] [place] Creatinine [Mass/Vol] 2.26 mg/dL High 0.73-1.22 [facility] Comment on above: Order Comment: Speci men Type: BLOOD SPECIMENOrdering Facility: [facility] Address: [address] [place] [address] Performed By: #### 2 4362-6 ####[facility] LABIA [id number] [place] [address] [place] Creatinine and Glomerular filtration rate.predicted panel (S/P/Bld) 28 mL/min/1.73m??? Low >=60 [facility] Comment on above: Order Comment: Speci men Type: BLOOD SPECIMENOrdering Facility: [facility] Address: [address] [place] [address] Result Comment: Etta mated Glomerular Filtration Rate [...] actual GFR. Performed By: #### 2 4362-6 ####[facility] LABCLIA [id number] [place] [address] [place] Glucose [Mass/Vol] 120 mg/dL High 74-99 [facility] Comment on above: Order Comment: Speci men Type: BLOOD SPECIMENOrdering Facility: [facility] Address: [address] [place] [address] Result Comment: The [place] [employer] (ADA) provides guidance for cutoff [...] Standards of Medical Care in Diabetes 2016, [place] [employer]. Diabetes Care. 2016.39(Suppl 1). Performed By: #### 2 4362-6 ####[facility] LABIA [id number] [place] [id number] [place] Phosphate [Mass/Vol] 2.8 mg/dL Normal 2.7-4.8 [facility] Comment on above: Order Comment: Rozi men Type: BLOOD SPECIMENOrdering Facility: [facility] Address: [address] [place] [address] Performed By: #### 2 4362-6 ####[facility] LABIA [id number] [place] [address] [place] Potassium [Moles/Vol] 3.8 mmol/L Normal 3.7-5.1 [facility] Comment on above: Order Comment: Rozi men Type: BLOOD SPECIMENOrdering Facility: [facility] Address: [address] [place] [address] Performed By: #### 2 4362-6 ####[facility] LABCLIA [id number] [place] [address] [place] Sodium [Moles/Vol] 140 mmol/L Normal 136-144 [facility] Comment on above: Order Comment: Speci men Type: BLOOD SPECIMENOrdering Facility: [facility] Address: [address] [place] [address] Performed By: #### 2 4362-6 ####[facility] LABCLIA [id number] [place] [address] [place] Urea nitrogen [Mass/Vol] 24 mg/dL Normal 9-24 [facility] Comment on above: Order Comment: Speci men Type: BLOOD SPECIMENOrdering Facility: [facility] Address: [address] [place] [address] Performed By: #### 2 4362-6 ####[facility] LABCLIA [id number] [place] [address] [place] THERAPY NTon 05-15-2024 THERAPY NT Normal [facility] ALLIED HEALTHon 05-14-2024 ALLIED HEALTH Normal [facility] ANES PRE-OPon 05-14-2024 ANES PRE-OP Normal [facility] BRIEF OP NOTon 05-14-2024 BRIEF OP NOT Normal [facility] CBC panel Auto (Bld)on 05-14 Erythrocyte distribution width (RBC) [Ratio] 19.9 % High 11.5-15.0 [facility] Comment on above: Order Comment: Speci men Type: BLOOD SPECIMENOrdering Facility: [facility] Address: [address] [place] [address] Performed By: #### 5 8410-2 ####[facility] LABCLIA [id number] [place] [address] [place] Hematocrit (Bld) [Volume fraction] 29.2 % Low 39.0-51.0 [facility] Comment on above: Order Comment: Speci men Type: BLOOD SPECIMENOrdering Facility: [facility] Address: [address] [place] [address] Performed By: #### 5 8410-2 ####[facility] LABIA [id number] [place] [address] [place] Hemoglobin (Bld) [Mass/Vol] 8.6 g/dL Low 13.0-17.0 [facility] Comment on above: Order Comment: Speci men Type: BLOOD SPECIMENOrdering Facility: [facility] Address: [address] [place] [address] Performed By: #### 5 8410-2 ####[facility] [id number] [place] [address] [place] MCH (RBC) [Entitic mass] 29.7 pg Normal 26.0-34.0 [facility] Comment on above: Order Comment: Speci men Type: BLOOD SPECIMENOrdering Facility: [facility] Address: [address] [place] [address] Performed By: #### 5 8410-2 ####[facility] [id number] [place] [address] [place] MCHC (RBC) [Mass/Vol] 29.5 g/dL Low 30.5-36.0 [facility] Comment on above: Order Comment: Speci men Type: BLOOD SPECIMENOrdering Facility: [facility] Address: [address] [place] [address] Performed By: #### 5 8410-2 ####[facility] [id number] [place] [address] [place] MCV (RBC) [Entitic vol] 100.7 fL High 80.0-100.0 [facility] Comment on above: Order Comment: Speci men Type: BLOOD SPECIMENOrdering Facility: [facility] Address: [address] [place] [address] Performed By: #### 5 8410-2 ####[facility] LABCLIA [id number] [place] [address] [place] Nucleated RBC (Bld) [#/Vol] 10*3/uL Normal <0.01 [facility] Comment on above: Order Comment: Speci men Type: BLOOD SPECIMENOrdering Facility: [facility] Address: [address] [place] [address] Performed By: #### 5 8410-2 ####[facility] LABIA [id number] [place] [address] [place] Platelet mean volume (Bld) [Entitic vol] 10.3 fL Normal 9.0-12.7 [facility] Comment on above: Order Comment: Speci men Type: BLOOD SPECIMENOrdering Facility: [facility] Address: [address] [place] [address] Performed By: #### 5 8410-2 ####[facility] LABIA [id number] [place] [address] [place] Platelets (Bld) [#/Vol] 158 10*3/uL Normal 150-400 [facility] Comment on above: Order Comment: Speci men Type: BLOOD SPECIMENOrdering Facility: [facility] Address: [address] [place] [address] Performed By: #### 5 8410-2 ####[facility] LABCLIA [id number] [place] [address] [place] RBC (Bld) [#/Vol] 2.90 10*6/uL Low 4.20-6.00 [facility] Comment on above: Order Comment: Speci men Type: BLOOD SPECIMENOrdering Facility: [facility] Address: [address] [place] [address] Performed By: #### 5 8410-2 ####[facility] LABCLIA [id number] [place] [address] [place] WBC (Bld) [#/Vol] 4.27 10*3/uL Normal 3.70-11.00 [facility] Comment on above: Order Comment: Speci men Type: BLOOD SPECIMENOrdering Facility: [facility] Address: [address] [place] [address] Performed By: #### 5 8410-2 ####[facility] LABIA [id number] [place] [address] [place] Magnesium SerPl-mCncon 05-14 Magnesium [Mass/Vol] 2.1 mg/dL Normal 1.7-2.3 [facility] Comment on above: Order Comment: Speci men Type: BLOOD SPECIMENOrdering Facility: [facility] Address: [address] [place] [address] Performed By: #### 1 9123-9, 45471-7 ####[facility] LABIA [id number] [place] [address] [place] PTT, ANTICOAGULANT THERAPYon 05-14-2024 aPTT Coag (PPP) [Time] 37.6 s High 23.0-32.4 [facility] Comment on above: Order Comment: Speci men Type: BLOOD SPECIMENOrdering Facility: [facility] Address: [address] [place] [address] Performed By: #### P TTAC ####[facility] LABIA [id number] [place] [address] [place] Renal function 2000 panelon 05-14-2024 Albumin [Mass/Vol] 3.3 g/dL Low 3.9-4.9 [facility] Comment on above: Order Comment: Speci men Type: BLOOD SPECIMENOrdering Facility: [facility] Address: [address] [place] [address] Performed By: #### 1 9123-9, 94856-6 ####[facility] LABCLIA [id number] [place] [address] [place] Anion gap [Moles/Vol] 12 mmol/L Normal 8-15 [facility] Comment on above: Order Comment: Speci men Type: BLOOD SPECIMENOrdering Facility: [facility] Address: [address] [place] [address] Performed By: #### 1 9123-9, 20336-6 ####[facility] LABCLIA [id number] [place] [address] [place] Calcium [Mass/Vol] 9.0 mg/dL Normal 8.5-10.2 [facility] Comment on above: Order Comment: Speci men Type: BLOOD SPECIMENOrdering Facility: [facility] Address: [address] [place] [address] Performed By: #### 1 9123-9, 67676-3 ####[facility] LABCLIA [id number] [place] [address] [place] Chloride [Moles/Vol] 104 mmol/L Normal 98-107 [facility] Comment on above: Order Comment: Speci men Type: BLOOD SPECIMENOrdering Facility: [facility] Address: [address] [place] [address] Performed By: #### 1 9123-9, 40809-3 ####[facility] LABCLIA [id number] [place] [address] [place] CO2 [Moles/Vol] 24 mmol/L Normal 22-30 [facility] Comment on above: Order Comment: Speci men Type: BLOOD SPECIMENOrdering Facility: [facility] Address: [address] [place] [address] Performed By: #### 1 9123-9, 57564-8 ####[facility] LABCLIA [id number] [place] [address] [place] Creatinine [Mass/Vol] 2.14 mg/dL High 0.73-1.22 [facility] Comment on above: Order Comment: Dylan olvera Type: BLOOD SPECIMENOrdering Facility: [facility] Address: [address] [place] [address] Performed By: #### 1 9123-9, 01908-4 ####[facility] LABCLIA [id number] [place] [address] [place] Creatinine and Glomerular filtration rate.predicted panel (S/P/Bld) 30 mL/min/1.73m??? Low >=60 [facility] Comment on above: Order Comment: Dylan olvera Type: BLOOD SPECIMENOrdering Facility: [facility] Address: [address] [place] [address] Result Comment: Etta mated Glomerular Filtration Rate [...] actual GFR. Performed By: #### 1 9123-9, 68250-5 ####[facility] LABCLIA [id number] [place] [address] [place] Glucose [Mass/Vol] 84 mg/dL Normal 74-99 [facility] Comment on above: Order Comment: Dylan olvera Type: BLOOD SPECIMENOrdering Facility: [facility] Address: [address] [place] [address] Result Comment: The [place] [employer] (ADA) provides guidance for cutoff [...] Standards of Medical Care in Diabetes 2016, [place] [employer]. Diabetes Care. 2016.39(Suppl 1). Performed By: #### 1 9123-9, 53673-7 ####[facility] LABCLIA [id number] [place] [address] [place] Phosphate [Mass/Vol] 2.7 mg/dL Normal 2.7-4.8 [facility] Comment on above: Order Comment: Speci men Type: BLOOD SPECIMENOrdering Facility: [facility] Address: [address] [place] [address] Performed By: #### 1 9123-9, 30889-5 ####[facility] LABCLIA [id number] [place] [address] [place] Potassium [Moles/Vol] 3.9 mmol/L Normal 3.7-5.1 [facility] Comment on above: Order Comment: Speci men Type: BLOOD SPECIMENOrdering Facility: [facility] Address: [address] [place] [address] Performed By: #### 1 9123-9, 26142-2 ####[facility] LABCLIA [id number] [place] [address] [place] Sodium [Moles/Vol] 140 mmol/L Normal 136-144 [facility] Comment on above: Order Comment: Speci men Type: BLOOD SPECIMENOrdering Facility: [facility] Address: [address] [place] [address] Performed By: #### 1 9123-9, 51920-4 ####[facility] LABCLIA [id number] [place] [id number] [place] Urea nitrogen [Mass/Vol] 24 mg/dL Normal 9-24 [facility] Comment on above: Order Comment: Speci men Type: BLOOD SPECIMENOrdering Facility: [facility] Address: [address] [place] [address] Performed By: #### 1 9123-9, 45553-7 ####[facility] LABCLIA [id number] [address] [address] [place] THERAPY NTon 05-14-2024 THERAPY NT Normal [facility] TYPE + SCREENon 05-14-2024 ABO O Normal [facility] Comment on above: Order Comment: Speci men Type: BLOOD SPECIMENOrdering Facility: [facility] Address: [address] [place] [address] Performed By: #### T SCR ####[facility] BANKCLIA [id number] [place] [id number] [place] HISTORICAL AB SCR STATUS Negative Normal [facility] Comment on above: Order Comment: Speci men Type: BLOOD SPECIMENOrdering Facility: [facility] Address: [address] [place] [address] Performed By: #### T SCR ####[facility]LO[facility] BANKCLIA [id number] [place] [address] [place] Rh Nom (Bld) Positive Normal [facility] Comment on above: Order Comment: Speci men Type: BLOOD SPECIMENOrdering Facility: [facility] Address: [address] [place] [address] Performed By: #### T SCR ####[facility] BLO[facility] BANKCLIA [id number] [place] [id number] [place] TYPE AND SCREEN EXPIRATION 05/17/2024 23:59 Normal [facility] Comment on above: Order Comment: Speci men Type: BLOOD SPECIMENOrdering Facility: [facility] Address: [address] [place], [place] [address] Performed By: #### T SCR ####[facility] BLOOD BANKCLIA [id number] [place] [id number] [place] Upper GI endoscopyon 024 Upper GI endoscopy Normal [facility] aPTT PPPon 05-14-2024 aPTT Coag (PPP) [Time] 25.4 s Normal 23.0-32.4 [facility] Comment on above: Order Comment: Speci men Type: BLOOD SPECIMENOrdering Facility: [facility] Address: [address] [place] [address] Performed By: #### 1 4979-9 ####[facility] LABIA [id number] [place] [address] [place] CBC panel Auto (Bld)on 05-13 Erythrocyte distribution width (RBC) [Ratio] 20.2 % High 11.5-15.0 [facility] Comment on above: Order Comment: Speci men Type: BLOOD SPECIMENOrdering Facility: [facility] Address: [address] [place] [address] Performed By: #### 5 8410-2 ####[facility] [id number] [place] [address] [place] Hematocrit (Bld) [Volume fraction] 28.2 % Low 39.0-51.0 [facility] Comment on above: Order Comment: Speci men Type: BLOOD SPECIMENOrdering Facility: [facility] Address: [address] [place] [address] Performed By: #### 5 8410-2 ####[facility] LABIA [id number] [place] [address] [place] Hemoglobin (Bld) [Mass/Vol] 8.3 g/dL Low 13.0-17.0 [facility] Comment on above: Order Comment: Speci men Type: BLOOD SPECIMENOrdering Facility: [facility] Address: [address] [place] [address] Performed By: #### 5 8410-2 ####[facility] LABIA [id number] [place] [address] [place] MCH (RBC) [Entitic mass] 29.6 pg Normal 26.0-34.0 [facility] Comment on above: Order Comment: Speci men Type: BLOOD SPECIMENOrdering Facility: [facility] Address: [address] [place] [address] Performed By: #### 5 8410-2 ####[facility] LABIA [id number] [place] [address] [place] MCHC (RBC) [Mass/Vol] 29.4 g/dL Low 30.5-36.0 [facility] Comment on above: Order Comment: Speci men Type: BLOOD SPECIMENOrdering Facility: [facility] Address: [address] [place] [address] Performed By: #### 5 8410-2 ####[facility] LABIA [id number] [place] [address] [place] MCV (RBC) [Entitic vol] 100.7 fL High 80.0-100.0 [facility] Comment on above: Order Comment: Speci men Type: BLOOD SPECIMENOrdering Facility: [facility] Address: [address] [place] [address] Performed By: #### 5 8410-2 ####[facility] LABIA [id number] [place] [address] [place] Nucleated RBC (Bld) [#/Vol] 10*3/uL Normal <0.01 [facility] Comment on above: Order Comment: Speci men Type: BLOOD SPECIMENOrdering Facility: [facility] Address: [address] [place] [address] Performed By: #### 5 8410-2 ####[facility] LABIA [id number] [place] [address] [place] Platelet mean volume (Bld) [Entitic vol] 10.4 fL Normal 9.0-12.7 [facility] Comment on above: Order Comment: Speci men Type: BLOOD SPECIMENOrdering Facility: [facility] Address: [address] [place] [address] Performed By: #### 5 8410-2 ####[facility] LABIA [id number] [place] [address] [place] Platelets (Bld) [#/Vol] 169 10*3/uL Normal 150-400 [facility] Comment on above: Order Comment: Speci men Type: BLOOD SPECIMENOrdering Facility: [facility] Address: [address] [place] [address] Performed By: #### 5 8410-2 ####[facility] LABIA [id number] [place] [address] [place] RBC (Bld) [#/Vol] 2.80 10*6/uL Low 4.20-6.00 [facility] Comment on above: Order Comment: Speci men Type: BLOOD SPECIMENOrdering Facility: [facility] Address: [address] [place] [address] Performed By: #### 5 8410-2 ####[facility] LABIA [id number] [place] [address] [place] WBC (Bld) [#/Vol] 4.70 10*3/uL Normal 3.70-11.00 [facility] Comment on above: Order Comment: Speci men Type: BLOOD SPECIMENOrdering Facility: [facility] Address: [address] [place] [address] Performed By: #### 5 8410-2 ####[facility] LABIA [id number] [place] [address] [place] Magnesium SerPl-mCncon 05-13 Magnesium [Mass/Vol] 2.2 mg/dL Normal 1.7-2.3 [facility] Comment on above: Order Comment: Speci men Type: BLOOD SPECIMENOrdering Facility: [facility] Address: [address] [place] [address] Performed By: #### 2 4362-6, 75029-6 ####[facility] LABIA [id number] [place] [address] [place] PTT, ANTICOAGULANT THERAPYon 05-13-2024 aPTT Coag (PPP) [Time] 49.3 s High 23.0-32.4 [facility] Comment on above: Order Comment: Speci men Type: BLOOD SPECIMENOrdering Facility: [facility] Address: [address] [place] [address] Performed By: #### P TTAC ####[facility] LABCLIA [id number] [place] [address] [place] aPTT Coag (PPP) [Time] 62.2 s High 23.0-32.4 [facility] Comment on above: Order Comment: Speci men Type: BLOOD SPECIMENOrdering Facility: [facility] Address: [address] [place] [address] Performed By: #### P TTAC ####[facility] LABCLIA [id number] [place] [address] [place] aPTT Coag (PPP) [Time] 76.5 s High 23.0-32.4 [facility] Comment on above: Order Comment: Speci men Type: BLOOD SPECIMENOrdering Facility: [facility] Address: [address] [place] [address] Performed By: #### P TTAC ####[facility] LABCLIA [id number] [place] [address] [place] Renal function 2000 panelon 05-13-2024 Albumin [Mass/Vol] 3.4 g/dL Low 3.9-4.9 [facility] Comment on above: Order Comment: Speci men Type: BLOOD SPECIMENOrdering Facility: [facility] Address: [address] [place] [address] Performed By: #### 2 4362-6, 36824-6 ####[facility] LABCLIA [id number] [place] [address] [place] Anion gap [Moles/Vol] 12 mmol/L Normal 8-15 [facility] Comment on above: Order Comment: Speci men Type: BLOOD SPECIMENOrdering Facility: [facility] Address: [address] [place] [id number] Performed By: #### 2 4362-6, ####[facility] LABCLIA [id number] [address] [address] [place] Calcium [Mass/Vol] 8.9 mg/dL Normal 8.5-10.2 [facility] Comment on above: Order Comment: Speci men Type: BLOOD SPECIMENOrdering Facility: [facility] Address: [address] [place], [place] [address] Performed By: #### 2 4362-6, ####[facility] LABCLIA [id number] [place] [id number] [place] Chloride [Moles/Vol] 104 mmol/L Normal 98-107 [facility] Comment on above: Order Comment: Speci men Type: BLOOD SPECIMENOrdering Facility: [facility] Address: [address] [place], [place] [address] Performed By: #### 2 4362-6, ####[facility] LABCLIA [id number] [place] [address] [place] CO2 [Moles/Vol] 24 mmol/L Normal 22-30 [facility] Comment on above: Order Comment: Speci men Type: BLOOD SPECIMENOrdering Facility: [facility] Address: [address] [place], [place] [address] Performed By: #### 2 4362-6, ####[facility] LABCLIA [id number] [place] [id number] [place] Creatinine [Mass/Vol] 2.10 mg/dL High 0.73-1.22 [facility] Comment on above: Order Comment: Speci men Type: BLOOD SPECIMENOrdering Facility: [facility] Address: [address] [place], [place] [address] Performed By: #### 2 4362-6, ####[facility] LABCLIA [id number] [place] [address] [place] Creatinine and Glomerular filtration rate.predicted panel (S/P/Bld) 31 mL/min/1.73m??? Low >=60 [facility] Comment on above: Order Comment: Dylan olvera Type: BLOOD SPECIMENOrdering Facility: [facility] Address: [address] [place] [address] Result Comment: Etta mated Glomerular Filtration Rate [...] actual GFR. Performed By: #### 2 4362-6, ####[facility] LABIA [id number] [place] [address] [place] Glucose [Mass/Vol] 105 mg/dL High 74-99 [facility] Comment on above: Order Comment: Dylan olvera Type: BLOOD SPECIMENOrdering Facility: [facility] Address: [address] [place] [address] Result Comment: The [place] [employer] (ADA) provides guidance for cutoff [...] Standards of Medical Care in Diabetes 2016, [place] [employer]. Diabetes Care. 2016.39(Suppl 1). Performed By: #### 2 4362-6, ####[facility] LABCLIA [id number] [place] [id number] [place] Phosphate [Mass/Vol] 2.8 mg/dL Normal 2.7-4.8 [facility] Comment on above: Order Comment: Speci men Type: BLOOD SPECIMENOrdering Facility: [facility] Address: [address] [place] [address] Performed By: #### 2 4362-6, ####[facility] LABIA [id number] [place] [id number] [place] Potassium [Moles/Vol] 3.8 mmol/L Normal 3.7-5.1 [facility] Comment on above: Order Comment: Speci men Type: BLOOD SPECIMENOrdering Facility: [facility] Address: [address] [place] [address] Performed By: #### 2 4362-6, ####[facility] LABIA [id number] [place] [address] [place] Sodium [Moles/Vol] 140 mmol/L Normal 136-144 [facility] Comment on above: Order Comment: Speci men Type: BLOOD SPECIMENOrdering Facility: [facility] Address: [address] [place] [address] Performed By: #### 2 4362-6, ####[facility] LABIA [id number] [place] [id number] [place] Urea nitrogen [Mass/Vol] 26 mg/dL High 9-24 [facility] Comment on above: Order Comment: Speci men Type: BLOOD SPECIMENOrdering Facility: [facility] Address: [address] [place], [place] [address] Performed By: #### 2 4362-6, ####[facility] LABIA [id number] [address] [address] [place] THERAPY NTon 05-13-2024 THERAPY NT Normal [facility] CBC panel Auto (Bld)on 05-12 Erythrocyte distribution width (RBC) [Ratio] 20.7 % High 11.5-15.0 [facility] Comment on above: Order Comment: Speci men Type: BLOOD SPECIMENOrdering Facility: [facility] Address: [address] [place] [address] Performed By: #### 5 8410-2 ####[facility] LABIA [id number] [place] [address] [place] Hematocrit (Bld) [Volume fraction] 28.1 % Low 39.0-51.0 [facility] Comment on above: Order Comment: Speci men Type: BLOOD SPECIMENOrdering Facility: [facility] Address: [address] [place] [address] Performed By: #### 5 8410-2 ####[facility] LABIA [id number] [place] [address] [place] Hemoglobin (Bld) [Mass/Vol] 8.0 g/dL Low 13.0-17.0 [facility] Comment on above: Order Comment: Speci men Type: BLOOD SPECIMENOrdering Facility: [facility] Address: [address] [place] [address] Performed By: #### 5 8410-2 ####[facility] LABIA [id number] [place] [address] [place] MCH (RBC) [Entitic mass] 29.3 pg Normal 26.0-34.0 [facility] Comment on above: Order Comment: Speci men Type: BLOOD SPECIMENOrdering Facility: [facility] Address: [address] [place] [address] Performed By: #### 5 8410-2 ####[facility] LABCLIA [id number] [place] [address] [place] MCHC (RBC) [Mass/Vol] 28.5 g/dL Low 30.5-36.0 [facility] Comment on above: Order Comment: Speci men Type: BLOOD SPECIMENOrdering Facility: [facility] Address: [address] [place] [address] Performed By: #### 5 8410-2 ####[facility] [id number] [place] [address] [place] MCV (RBC) [Entitic vol] 102.9 fL High 80.0-100.0 [facility] Comment on above: Order Comment: Speci men Type: BLOOD SPECIMENOrdering Facility: [facility] Address: [address] [place] [address] Performed By: #### 5 8410-2 ####[facility] [id number] [place] [address] [place] Nucleated RBC (Bld) [#/Vol] 10*3/uL Normal <0.01 [facility] Comment on above: Order Comment: Speci men Type: BLOOD SPECIMENOrdering Facility: [facility] Address: [address] [place] [address] Performed By: #### 5 8410-2 ####[facility] [id number] [place] [address] [place] Platelet mean volume (Bld) [Entitic vol] 10.6 fL Normal 9.0-12.7 [facility] Comment on above: Order Comment: Speci men Type: BLOOD SPECIMENOrdering Facility: [facility] Address: [address] [place] [address] Performed By: #### 5 8410-2 ####[facility] LABIA [id number] [place] [address] [place] Platelets (Bld) [#/Vol] 182 10*3/uL Normal 150-400 [facility] Comment on above: Order Comment: Speci men Type: BLOOD SPECIMENOrdering Facility: [facility] Address: [address] [place] [address] Performed By: #### 5 8410-2 ####[facility] LABIA [id number] [place] [address] [place] RBC (Bld) [#/Vol] 2.73 10*6/uL Low 4.20-6.00 [facility] Comment on above: Order Comment: Speci men Type: BLOOD SPECIMENOrdering Facility: [facility] Address: [address] [place] [address] Performed By: #### 5 8410-2 ####[facility] LABIA [id number] [place] [address] [place] WBC (Bld) [#/Vol] 4.96 10*3/uL Normal 3.70-11.00 [facility] Comment on above: Order Comment: Speci men Type: BLOOD SPECIMENOrdering Facility: [facility] Address: [address] [place] [address] Performed By: #### 5 8410-2 ####[facility] LABIA [id number] [place] [address] [place] PT panel Coag (PPP)on 2023 INR Coag (PPP) [Relative time] 1.3 {INR} Normal 0.9-1.3 [facility] Comment on above: Order Comment: Speci men Type: BLOOD SPECIMENOrdering Facility: [facility] Address: [address] [place] [address] Result Comment: Loulou min K Antagonist (VKA) Therapeutic Range: INR 2 to 3 (Target INR of 2.5)Note: For patients treated with VKA drugs, such as warfarin, the [place] [employer] 2012 Guideline recommends [...] al. Chest 2012, 141:7S-47SNishimura RA, et al. [facility] 2017, 70: 252-289 Performed By: #### P TTAC, 94960-4 ####[facility] LABCLIA [id number] [place] [address] [place] PT Coag (PPP) [Time] 13.5 s High 9.7-13.0 [facility] Comment on above: Order Comment: Speci men Type: BLOOD SPECIMENOrdering Facility: [facility] Address: [address] [place] [address] Performed By: #### P TTAC, 34057-6 ####[facility] LABCLIA [id number] [place] [address] [place] PTT, ANTICOAGULANT THERAPYon 05-12-2024 aPTT Coag (PPP) [Time] 43.6 s High 23.0-32.4 [facility] Comment on above: Order Comment: Speci men Type: BLOOD SPECIMENOrdering Facility: [facility] Address: [address] [place] [address] Performed By: #### P TTAC ####[facility] LABIA [id number] [place] [address] [place] aPTT Coag (PPP) [Time] 106.6 s High 23.0-32.4 [facility] Comment on above: Order Comment: Speci men Type: BLOOD SPECIMENOrdering Facility: [facility] Address: [address] [place] [address] Performed By: #### P TTAC ####[facility] LABCLIA [id number] [place] [address] [place] aPTT Coag (PPP) [Time] 42.0 s High 23.0-32.4 [facility] Comment on above: Order Comment: Speci men Type: BLOOD SPECIMENOrdering Facility: [facility] Address: [address] [place] [address] Performed By: #### P [facility] 67906-9 ####[facility] LABCLIA [id number] [place] [address] [place] Renal function 2000 panelon 05-12-2024 Albumin [Mass/Vol] 3.2 g/dL Low 3.9-4.9 [facility] Comment on above: Order Comment: Speci men Type: BLOOD SPECIMENOrdering Facility: [facility] Address: [address] [place] [address] Performed By: #### 2 4362-6 ####[facility] LABCLIA [id number] [place] [address] [place] Anion gap [Moles/Vol] 10 mmol/L Normal 8-15 [facility] Comment on above: Order Comment: Speci men Type: BLOOD SPECIMENOrdering Facility: [facility] Address: [address] [place] [address] Performed By: #### 2 4362-6 ####[facility] LABCLIA [id number] [place] [address] [place] Calcium [Mass/Vol] 8.6 mg/dL Normal 8.5-10.2 [facility] Comment on above: Order Comment: Speci men Type: BLOOD SPECIMENOrdering Facility: [facility] Address: [address] [place] [address] Performed By: #### 2 4362-6 ####[facility] LABCLIA [id number] [place] [address] [place] Chloride [Moles/Vol] 106 mmol/L Normal 98-107 [facility] Comment on above: Order Comment: Speci men Type: BLOOD SPECIMENOrdering Facility: [facility] Address: [address] [place] [address] Performed By: #### 2 4362-6 ####[facility] LABCLIA [id number] [place] [address] [place] CO2 [Moles/Vol] 23 mmol/L Normal 22-30 [facility] Comment on above: Order Comment: Speci men Type: BLOOD SPECIMENOrdering Facility: [facility] Address: [address] [place] [address] Performed By: #### 2 4362-6 ####[facility] LABCLIA [id number] [place] [address] [place] Creatinine [Mass/Vol] 2.22 mg/dL High 0.73-1.22 [facility] Comment on above: Order Comment: Speci men Type: BLOOD SPECIMENOrdering Facility: [facility] Address: [address] [place] [address] Performed By: #### 2 4362-6 ####[facility] LABIA [id number] [place] [address] [place] Creatinine and Glomerular filtration rate.predicted panel (S/P/Bld) 29 mL/min/1.73m??? Low >=60 [facility] Comment on above: Order Comment: Speci men Type: BLOOD SPECIMENOrdering Facility: [facility] Address: [address] [place] [address] Result Comment: Etta mated Glomerular Filtration Rate [...] actual GFR. Performed By: #### 2 4362-6 ####[facility] LABCLIA [id number] [place] [address] [place] Glucose [Mass/Vol] 118 mg/dL High 74-99 [facility] Comment on above: Order Comment: Speci men Type: BLOOD SPECIMENOrdering Facility: [facility] Address: [address] [place], [place] [address] Result Comment: The [place] [employer] (ADA) provides guidance for cutoff [...] Standards of Medical Care in Diabetes 2016, [place] [employer]. Diabetes Care. 2016.39(Suppl 1). Performed By: #### 2 4362-6 ####[facility] LABCLIA [id number] [place] [address] [place] Phosphate [Mass/Vol] 2.6 mg/dL Low 2.7-4.8 [facility] Comment on above: Order Comment: Dylan men Type: BLOOD SPECIMENOrdering Facility: [facility] Address: [address] [place], [place] [address] Performed By: #### 2 4362-6 ####[facility] LABCLIA [id number] [place] [address] [place] Potassium [Moles/Vol] 3.9 mmol/L Normal 3.7-5.1 [facility] Comment on above: Order Comment: Speci men Type: BLOOD SPECIMENOrdering Facility: [facility] Address: [address] [place] [address] Performed By: #### 2 4362-6 ####[facility] LABCLIA [id number] [place] [address] [place] Sodium [Moles/Vol] 139 mmol/L Normal 136-144 [facility] Comment on above: Order Comment: Speci men Type: BLOOD SPECIMENOrdering Facility: [facility] Address: [address] [place] [address] Performed By: #### 2 4362-6 ####[facility] LABCLIA [id number] [place] [address] [place] Urea nitrogen [Mass/Vol] 28 mg/dL High 9-24 [facility] Comment on above: Order Comment: Speci men Type: BLOOD SPECIMENOrdering Facility: [facility] Address: [address] [place] [address] Performed By: #### 2 4362-6 ####[facility] LABCLIA [id number] [place] [address] [place] THERAPY NTon 05-12-2024 THERAPY NT Normal [facility] CASE MGT INIT ASSESon 2023 CASE MGT INIT ASSES Normal [facility] CBC panel Auto (Bld)on 05-11 Erythrocyte distribution width (RBC) [Ratio] 20.9 % High 11.5-15.0 [facility] Comment on above: Order Comment: Speci men Type: BLOOD SPECIMENOrdering Facility: [facility] Address: [address] [place] [address] Performed By: #### 5 8410-2 ####[facility] LABCLIA [id number] [place] [address] [place] Hematocrit (Bld) [Volume fraction] 27.6 % Low 39.0-51.0 [facility] Comment on above: Order Comment: Speci men Type: BLOOD SPECIMENOrdering Facility: [facility] Address: [address] [place] [address] Performed By: #### 5 8410-2 ####[facility] LABIA [id number] [place] [address] [place] Hemoglobin (Bld) [Mass/Vol] 8.1 g/dL Low 13.0-17.0 [facility] Comment on above: Order Comment: Speci men Type: BLOOD SPECIMENOrdering Facility: [facility] Address: [address] [place] [address] Performed By: #### 5 8410-2 ####[facility] LABCLIA [id number] [place] [address] [place] MCH (RBC) [Entitic mass] 29.8 pg Normal 26.0-34.0 [facility] Comment on above: Order Comment: Speci men Type: BLOOD SPECIMENOrdering Facility: [facility] Address: [address] [place] [address] Performed By: #### 5 8410-2 ####[facility] LABIA [id number] [place] [address] [place] MCHC (RBC) [Mass/Vol] 29.3 g/dL Low 30.5-36.0 [facility] Comment on above: Order Comment: Speci men Type: BLOOD SPECIMENOrdering Facility: [facility] Address: [address] [place] [address] Performed By: #### 5 8410-2 ####[facility] LABIA [id number] [place] [address] [place] MCV (RBC) [Entitic vol] 101.5 fL High 80.0-100.0 [facility] Comment on above: Order Comment: Speci men Type: BLOOD SPECIMENOrdering Facility: [facility] Address: [address] [place] [address] Performed By: #### 5 8410-2 ####[facility] LABCLIA [id number] [place] [address] [place] Nucleated RBC (Bld) [#/Vol] 10*3/uL Normal <0.01 [facility] Comment on above: Order Comment: Speci men Type: BLOOD SPECIMENOrdering Facility: [facility] Address: [address] [place] [address] Performed By: #### 5 8410-2 ####[facility] LABCLIA [id number] [place] [address] [place] Platelet mean volume (Bld) [Entitic vol] 10.4 fL Normal 9.0-12.7 [facility] Comment on above: Order Comment: Speci men Type: BLOOD SPECIMENOrdering Facility: [facility] Address: [address] [place] [address] Performed By: #### 5 8410-2 ####[facility] [id number] [place] [address] [place] Platelets (Bld) [#/Vol] 182 10*3/uL Normal 150-400 [facility] Comment on above: Order Comment: Speci men Type: BLOOD SPECIMENOrdering Facility: [facility] Address: [address] [place] [address] Performed By: #### 5 8410-2 ####[facility] [id number] [place] [address] [place] RBC (Bld) [#/Vol] 2.72 10*6/uL Low 4.20-6.00 [facility] Comment on above: Order Comment: Speci men Type: BLOOD SPECIMENOrdering Facility: [facility] Address: [address] [place] [address] Performed By: #### 5 8410-2 ####[facility] [id number] [place] [address] [place] WBC (Bld) [#/Vol] 5.06 10*3/uL Normal 3.70-11.00 [facility] Comment on above: Order Comment: Speci men Type: BLOOD SPECIMENOrdering Facility: [facility] Address: [address] [place] [address] Performed By: #### 5 8410-2 ####[facility] [id number] [place] [address] [place] NURSING PROGon 05-11-2024 NURSING PROG Normal [facility] PTT, ANTICOAGULANT THERAPYon 05-11-2024 aPTT Coag (PPP) [Time] 55.4 s High 23.0-32.4 [facility] Comment on above: Order Comment: Speci men Type: BLOOD SPECIMENOrdering Facility: [facility] Address: [address] [place] [address] Performed By: #### P TTAC ####[facility] LABCLIA [id number] [place] [address] [place] aPTT Coag (PPP) [Time] 61.4 s High 23.0-32.4 [facility] Comment on above: Order Comment: Speci men Type: BLOOD SPECIMENOrdering Facility: [facility] Address: [address] [place] [address] Performed By: #### P TTAC ####[facility] LABCLIA [id number] [place] [address] [place] aPTT Coag (PPP) [Time] 65.2 s High 23.0-32.4 [facility] Comment on above: Order Comment: Speci men Type: BLOOD SPECIMENOrdering Facility: [facility] Address: [address] [place] [address] Performed By: #### P TTAC ####[facility] LABCLIA [id number] [place] [address] [place] Renal function 2000 panelon 05-11-2024 Albumin [Mass/Vol] 3.3 g/dL Low 3.9-4.9 [facility] Comment on above: Order Comment: Speci men Type: BLOOD SPECIMENOrdering Facility: [facility] Address: [address] [place] [address] Performed By: #### 2 4362-6 ####[facility] LABCLIA [id number] [place] [address] [place] Anion gap [Moles/Vol] 10 mmol/L Normal 8-15 [facility] Comment on above: Order Comment: Speci men Type: BLOOD SPECIMENOrdering Facility: [facility] Address: [address] [place], [place] [address] Performed By: #### 2 4362-6 ####[facility] LABCLIA [id number] [address] [address] [place] Calcium [Mass/Vol] 8.3 mg/dL Low 8.5-10.2 [facility] Comment on above: Order Comment: Speci men Type: BLOOD SPECIMENOrdering Facility: [facility] Address: [address] [place], [place] [address] Performed By: #### 2 4362-6 ####[facility] LABCLIA [id number] [place] [address] [place] Chloride [Moles/Vol] 106 mmol/L Normal 98-107 [facility] Comment on above: Order Comment: Speci men Type: BLOOD SPECIMENOrdering Facility: [facility] Address: [address] [place], [place] [address] Performed By: #### 2 4362-6 ####[facility] LABCLIA [id number] [place] [address] [place] CO2 [Moles/Vol] 24 mmol/L Normal 22-30 [facility] Comment on above: Order Comment: Speci men Type: BLOOD SPECIMENOrdering Facility: [facility] Address: [address] [place], [place] [address] Performed By: #### 2 4362-6 ####[facility] LABCLIA [id number] [place] [id number] [place] Creatinine [Mass/Vol] 2.05 mg/dL High 0.73-1.22 [facility] Comment on above: Order Comment: Speci men Type: BLOOD SPECIMENOrdering Facility: [facility] Address: [address] [place], [place] [address] Performed By: #### 2 4362-6 ####[facility] LABCLIA [id number] [place] [address] [place] Creatinine and Glomerular filtration rate.predicted panel (S/P/Bld) 32 mL/min/1.73m??? Low >=60 [facility] Comment on above: Order Comment: Dylan olvera Type: BLOOD SPECIMENOrdering Facility: [facility] Address: [address] [place] [address] Result Comment: Etta mated Glomerular Filtration Rate [...] actual GFR. Performed By: #### 2 4362-6 ####[facility] LABIA [id number] [place] [address] [place] Glucose [Mass/Vol] 103 mg/dL High 74-99 [facility] Comment on above: Order Comment: Dylan olvera Type: BLOOD SPECIMENOrdering Facility: [facility] Address: [address] [place] [address] Result Comment: The [place] [employer] (ADA) provides guidance for cutoff [...] Standards of Medical Care in Diabetes 2016, [place] [employer]. Diabetes Care. 2016.39(Suppl 1). Performed By: #### 2 4362-6 ####[facility] LABCLIA [id number] [place] [address] [place] Phosphate [Mass/Vol] 2.3 mg/dL Low 2.7-4.8 [facility] Comment on above: Order Comment: Speci men Type: BLOOD SPECIMENOrdering Facility: [facility] Address: [address] [place] [address] Performed By: #### 2 4362-6 ####[facility] LABCLIA [id number] [place] [address] [place] Potassium [Moles/Vol] 3.8 mmol/L Normal 3.7-5.1 [facility] Comment on above: Order Comment: Speci men Type: BLOOD SPECIMENOrdering Facility: [facility] Address: [address] [place] [address] Performed By: #### 2 4362-6 ####[facility] LABCLIA [id number] [place] [address] [place] Sodium [Moles/Vol] 140 mmol/L Normal 136-144 [facility] Comment on above: Order Comment: Speci men Type: BLOOD SPECIMENOrdering Facility: [facility] Address: [address] [place] [address] Performed By: #### 2 4362-6 ####[facility] LABCLIA [id number] [place] [address] [place] Urea nitrogen [Mass/Vol] 30 mg/dL High 9-24 [facility] Comment on above: Order Comment: Speci men Type: BLOOD SPECIMENOrdering Facility: [facility] Address: [address] [place] [address] Performed By: #### 2 4362-6 ####[facility] LABCLIA [id number] [place] [address] [place] THERAPY NTon 05-11-2024 THERAPY NT Normal [facility] THERAPY NT Normal [facility] CBC panel Auto (Bld)on 05-10 Erythrocyte distribution width (RBC) [Ratio] 21.3 % High 11.5-15.0 [facility] Comment on above: Order Comment: Speci men Type: BLOOD SPECIMENOrdering Facility: [facility] Address: [address] [place] [address] Performed By: #### 5 8410-2 ####[facility] LABIA [id number] [place] [address] [place] Hematocrit (Bld) [Volume fraction] 29.8 % Low 39.0-51.0 [facility] Comment on above: Order Comment: Speci men Type: BLOOD SPECIMENOrdering Facility: [facility] Address: [address] [place] [address] Performed By: #### 5 8410-2 ####[facility] LABIA [id number] [place] [address] [place] Hemoglobin (Bld) [Mass/Vol] 8.6 g/dL Low 13.0-17.0 [facility] Comment on above: Order Comment: Speci men Type: BLOOD SPECIMENOrdering Facility: [facility] Address: [address] [place] [address] Performed By: #### 5 8410-2 ####[facility] LABIA [id number] [place] [address] [place] MCH (RBC) [Entitic mass] 30.0 pg Normal 26.0-34.0 [facility] Comment on above: Order Comment: Speci men Type: BLOOD SPECIMENOrdering Facility: [facility] Address: [address] [place] [address] Performed By: #### 5 8410-2 ####[facility] LABIA [id number] [place] [address] [place] MCHC (RBC) [Mass/Vol] 28.9 g/dL Low 30.5-36.0 [facility] Comment on above: Order Comment: Speci men Type: BLOOD SPECIMENOrdering Facility: [facility] Address: [address] [place] [address] Performed By: #### 5 8410-2 ####[facility] LABIA [id number] [place] [address] [place] MCV (RBC) [Entitic vol] 103.8 fL High 80.0-100.0 [facility] Comment on above: Order Comment: Speci men Type: BLOOD SPECIMENOrdering Facility: [facility] Address: [address] [place] [address] Performed By: #### 5 8410-2 ####[facility] LABIA [id number] [place] [address] [place] Nucleated RBC (Bld) [#/Vol] 0.02 10*3/uL High <0.01 [facility] Comment on above: Order Comment: Speci men Type: BLOOD SPECIMENOrdering Facility: [facility] Address: [address] [place] [address] Performed By: #### 5 8410-2 ####[facility] [id number] [place] [address] [place] Platelet mean volume (Bld) [Entitic vol] 10.6 fL Normal 9.0-12.7 [facility] [facility] Comment on above: Order Comment: Speci men Type: BLOOD SPECIMENOrdering Facility: [facility] Address: [address] [place] [address] Performed By: #### 5 8410-2 ####[facility] LABIA [id number] [place] [address] [place] Platelets (Bld) [#/Vol] 188 10*3/uL Normal 150-400 [facility] Comment on above: Order Comment: Speci men Type: BLOOD SPECIMENOrdering Facility: [facility] Address: [address] [place] [address] Performed By: #### 5 8410-2 ####[facility] LABIA [id number] [place] [address] [place] RBC (Bld) [#/Vol] 2.87 10*6/uL Low 4.20-6.00 [facility] Comment on above: Order Comment: Speci men Type: BLOOD SPECIMENOrdering Facility: [facility] Address: [address] [place] [address] Performed By: #### 5 8410-2 ####[facility] LABIA [id number] [place] [address] [place] WBC (Bld) [#/Vol] 4.87 10*3/uL Normal 3.70-11.00 [facility] Comment on above: Order Comment: Speci men Type: BLOOD SPECIMENOrdering Facility: [facility] Address: [address] [place] [address] Performed By: #### 5 8410-2 ####[facility] [id number] [place] [address] [place] NURSING PROGon 05-10-2024 NURSING PROG Normal [facility] PTT, ANTICOAGULANT THERAPYon 05-10-2024 aPTT Coag (PPP) [Time] 64.0 s High 23.0-32.4 [facility] Comment on above: Order Comment: Speci men Type: BLOOD SPECIMENOrdering Facility: [facility] Address: [address] [place] [address] Performed By: #### P TTAC ####[facility] LABIA [id number] [place] [address] [place] aPTT Coag (PPP) [Time] 46.0 s High 23.0-32.4 [facility] Comment on above: Order Comment: Speci men Type: BLOOD SPECIMENOrdering Facility: [facility] Address: [address] [place] [address] Performed By: #### P TTAC ####[facility] LABIA [id number] [place] [address] [place] aPTT Coag (PPP) [Time] 87.4 s High 23.0-32.4 [facility] Comment on above: Order Comment: Speci men Type: BLOOD SPECIMENOrdering Facility: [facility] Address: [address] [place] [address] Performed By: #### P TTAC ####[facility] LABCLIA [id number] [place] [address] [place] TYPE + SCREENon 05-10-2024 ABO O Normal [facility] Comment on above: Order Comment: Speci men Type: BLOOD SPECIMENOrdering Facility: [facility] Address: [address] [place] [address] Performed By: #### T SCR ####[facility]LOOD BANKCLIA [id number] [place] [address] [place] HISTORICAL AB SCR STATUS Negative Normal [facility] Comment on above: Order Comment: Speci men Type: BLOOD SPECIMENOrdering Facility: [facility] Address: [address] [place] [address] Performed By: #### T SCR ####[facility] BLOOD BANKCLIA [id number] [place] [address] [place] Rh Nom (Bld) Positive Normal [facility] Comment on above: Order Comment: Speci men Type: BLOOD SPECIMENOrdering Facility: [facility] Address: [address] [place] [address] Performed By: #### T SCR ####[facility] BLOOD BANKCLIA [id number] [place] [address] [place] TYPE AND SCREEN EXPIRATION 05/13/2024 23:59 Normal [facility] Comment on above: Order Comment: Speci men Type: BLOOD SPECIMENOrdering Facility: [facility] Address: [address] [place] [address] Performed By: #### T SCR ####[facility] BLOOD BANKCLIA [id number] [id number], [place] [address] [place] Basic metabolic 2000 panelon 05-09-2024 Anion gap [Moles/Vol] 10 mmol/L Normal 8-15 [facility] Comment on above: Order Comment: Speci men Type: BLOOD SPECIMEN [facility] Address: [address] [place] [address] Performed By: #### 3 4528-0, PTTAC #### [facility] CLIA [id number] [address] [place] [address] [place] Calcium [Mass/Vol] 8.6 mg/dL Normal 8.5-10.2 [facility] Comment on above: Order Comment: Speci men Type: BLOOD SPECIMEN [facility] Address: [address] [place] [address] Performed By: #### 3 4528-0, PTTAC #### [facility] CLIA [id number] [address] [place] [address] [place] Chloride [Moles/Vol] 105 mmol/L Normal 98-107 [facility] Comment on above: Order Comment: Speci men Type: BLOOD SPECIMEN [facility] Address: [address] [place] [address] Performed By: #### 3 4528-0, PTTAC #### [facility] CLIA [id number] [address] [place] [address] [place] CO2 [Moles/Vol] 24 mmol/L Normal 22-30 [facility] Comment on above: Order Comment: Speci men Type: BLOOD SPECIMEN [facility] Address: [address] [place] [address] Performed By: #### 3 4528-0, PTTAC #### [facility] CLIA [id number] [address] [place] [address] [place] Creatinine [Mass/Vol] 1.96 mg/dL High 0.73-1.22 [facility] Comment on above: Order Comment: Speci men Type: BLOOD SPECIMEN [facility] Address: [address] [place] [address] Performed By: #### 3 4528-0, PTTAC #### [facility] CLIA [id number] [address] [place] [address] [place] Creatinine and Glomerular filtration rate.predicted panel (S/P/Bld) 34 mL/min/1.73m??? Low >=60 [facility] Comment on above: Order Comment: Dylan olvera Type: BLOOD SPECIMEN [facility] Address: [address] [place] [address] Result Comment: Etta mated Glomerular Filtration Rate [...] #### [facility] CLIA [id number] [address] [place] [address] [place] Glucose [Mass/Vol] 114 mg/dL High 74-99 [facility] Comment on above: Order Comment: Dylan olvera Type: BLOOD SPECIMEN [facility] Address: [address] [place] [address] Result Comment: The [place] Diabetes Association (ADA) provides guidance for cutoff [...] Standards of Medical Care in Diabetes 2016, [place] [employer]. Diabetes Care. 2016.39(Suppl 1). Performed By: #### 3 4528-0, PTTAC #### [facility] CLIA [id number] [address] [place] [address] [place] Potassium [Moles/Vol] 4.1 mmol/L Normal 3.7-5.1 [facility] Comment on above: Order Comment: Speci men Type: BLOOD SPECIMEN [facility] Address: [address] [place] [address] Performed By: #### 3 4528-0, PTTAC #### [facility] CLIA [id number] [address] [place] [address] [place] Sodium [Moles/Vol] 139 mmol/L Normal 136-144 [facility] Comment on above: Order Comment: Speci men Type: BLOOD SPECIMEN [facility] Address: [address] [place] [address] Performed By: #### 3 4528-0, PTTAC #### [facility] IA [id number] [address] [place] [address] [place] Urea nitrogen [Mass/Vol] 36 mg/dL High 9-24 [facility] Comment on above: Order Comment: Speci men Type: BLOOD SPECIMEN [facility] Address: [address] [place] [address] Performed By: #### 3 4528-0, PTTAC #### [facility] IA [id number] [address] [place] [address] [place] CBC panel Auto (Bld)on 05-09 Erythrocyte distribution width (RBC) [Ratio] 21.8 % High 11.5-15.0 [facility] Comment on above: Order Comment: Speci men Type: BLOOD SPECIMENOrdering Facility: [facility] Address: [address] [place] [address] Performed By: #### 5 8410-2 ####[facility] LABCLIA [id number] [place] [id number] [place] Hematocrit (Bld) [Volume fraction] 28.0 % Low 39.0-51.0 [facility] Comment on above: Order Comment: Speci men Type: BLOOD SPECIMENOrdering Facility: [facility] Address: [address] [place] [address] Performed By: #### 5 8410-2 ####[facility] LABCLIA [id number] [place] [address] [place] Hemoglobin (Bld) [Mass/Vol] 8.3 g/dL Low 13.0-17.0 [facility] Comment on above: Order Comment: Speci men Type: BLOOD SPECIMENOrdering Facility: [facility] Address: [address] [place] [address] Performed By: #### 5 8410-2 ####[facility] LABCLIA [id number] [place] [address] [place] MCH (RBC) [Entitic mass] 30.3 pg Normal 26.0-34.0 [facility] Comment on above: Order Comment: Speci men Type: BLOOD SPECIMENOrdering Facility: [facility] Address: [address] [place] [address] Performed By: #### 5 8410-2 ####[facility] LABCLIA [id number] [place] [address] [place] MCHC (RBC) [Mass/Vol] 29.6 g/dL Low 30.5-36.0 [facility] Comment on above: Order Comment: Speci men Type: BLOOD SPECIMENOrdering Facility: [facility] Address: [address] [place] [address] Performed By: #### 5 8410-2 ####[facility] LABCLIA [id number] [place] [address] [place] MCV (RBC) [Entitic vol] 102.2 fL High 80.0-100.0 [facility] Comment on above: Order Comment: Speci men Type: BLOOD SPECIMENOrdering Facility: [facility] Address: [address] [place] [address] Performed By: #### 5 8410-2 ####[facility] LABCLIA [id number] [place] [address] [place] Nucleated RBC (Bld) [#/Vol] 10*3/uL Normal <0.01 [facility] Comment on above: Order Comment: Speci men Type: BLOOD SPECIMENOrdering Facility: [facility] Address: [address] [place] [address] Performed By: #### 5 8410-2 ####[facility] LABIA [id number] [place] [address] [place] Platelet mean volume (Bld) [Entitic vol] 10.1 fL Normal 9.0-12.7 [facility] Comment on above: Order Comment: Speci men Type: BLOOD SPECIMENOrdering Facility: [facility] Address: [address] [place] [address] Performed By: #### 5 8410-2 ####[facility] LABIA [id number] [place] [address] [place] Platelets (Bld) [#/Vol] 170 10*3/uL Normal 150-400 [facility] Comment on above: Order Comment: Speci men Type: BLOOD SPECIMENOrdering Facility: [facility] Address: [address] [place] [address] Performed By: #### 5 8410-2 ####[facility] LABIA [id number] [place] [address] [place] RBC (Bld) [#/Vol] 2.74 10*6/uL Low 4.20-6.00 [facility] Comment on above: Order Comment: Speci men Type: BLOOD SPECIMENOrdering Facility: [facility] Address: [address] [place] [address] Performed By: #### 5 8410-2 ####[facility] LABIA [id number] [place] [address] [place] WBC (Bld) [#/Vol] 5.04 10*3/uL Normal 3.70-11.00 [facility] Comment on above: Order Comment: Speci men Type: BLOOD SPECIMENOrdering Facility: [facility] Address: [address] [place] [address] Performed By: #### 5 8410-2 ####[facility] LABCLIA [id number] [facility] [id number] [address] [place] Erythrocyte distribution width (RBC) [Ratio] 21.8 % High 11.5-15.0 [facility] Comment on above: Order Comment: Speci men Type: BLOOD SPECIMEN [facility] Address: [address] [place] [address] Performed By: #### 5 8410-2 #### [facility] CLIA [id number] [address] [place] [address] [place] Hematocrit (Bld) [Volume fraction] 27.6 % Low 39.0-51.0 [facility] Comment on above: Order Comment: Speci men Type: BLOOD SPECIMEN [facility] Address: [address] [place] [address] Performed By: #### 5 8410-2 #### [facility] CLIA [id number] [address] [place] [address] [place] Hemoglobin (Bld) [Mass/Vol] 8.2 g/dL Low 13.0-17.0 [facility] Comment on above: Order Comment: Speci men Type: BLOOD SPECIMEN [facility] Address: [address] [place] [address] Performed By: #### 5 8410-2 #### [facility] CLIA [id number] [address] [place] [address] [place] MCH (RBC) [Entitic mass] 30.5 pg Normal 26.0-34.0 [facility] Comment on above: Order Comment: Speci men Type: BLOOD SPECIMEN [facility] Address: [address] [place] [address] Performed By: #### 5 8410-2 #### [facility] IA [id number] [address] [place] [address] [place] MCHC (RBC) [Mass/Vol] 29.7 g/dL Low 30.5-36.0 [facility] Comment on above: Order Comment: Speci men Type: BLOOD SPECIMEN [facility] Address: [address] [place] [address] Performed By: #### 5 8410-2 #### [facility] IA [id number] [address] [place] [address] [place] MCV (RBC) [Entitic vol] 102.6 fL High 80.0-100.0 [facility] Comment on above: Order Comment: Speci men Type: BLOOD SPECIMEN [facility] Address: [address] [place] [address] Performed By: #### 5 8410-2 #### [facility] IA [id number] [address] [place] [address] [place] Nucleated RBC (Bld) [#/Vol] 0.02 10*3/uL High <0.01 [facility] Comment on above: Order Comment: Speci men Type: BLOOD SPECIMEN [facility] Address: [address] [place] [address] Performed By: #### 5 8410-2 #### [facility] IA [id number] [address] [place] [address] [place] Platelet mean volume (Bld) [Entitic vol] 10.5 fL Normal 9.0-12.7 [facility] Comment on above: Order Comment: Speci men Type: BLOOD SPECIMEN [facility] Address: [address] [place] [address] Performed By: #### 5 8410-2 #### [facility] IA [id number] [address] [place] [address] [place] Platelets (Bld) [#/Vol] 174 10*3/uL Normal 150-400 [facility] Comment on above: Order Comment: Speci men Type: BLOOD SPECIMEN [facility] Address: [address] [place], [place] [address] Performed By: #### 5 8410-2 #### [facility] CLIA [id number] [address] [place] [address] [facility] RBC (Bld) [#/Vol] 2.69 10*6/uL Low 4.20-6.00 [facility] Comment on above: Order Comment: Speci men Type: BLOOD SPECIMEN [facility] Address: [address] [place], [place] [address] Performed By: #### 5 8410-2 #### [facility] CLIA [id number] [address] [place] [address] [facility] WBC (Bld) [#/Vol] 5.62 10*3/uL Normal 3.70-11.00 [facility] Comment on above: Order Comment: Speci men Type: BLOOD SPECIMEN [facility] Address: [address] [place] [address] Performed By: #### 5 8410-2 #### 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 Hb 8.8, baseline 11-12. ProBNP 55807 .CXR: left pleural effusions (new compares to 02/2024). Pt has crimson colored stool that is guaiac positive. Pt was evaluated by GI and cardiology while admitted. Asa and xarelto were on hold and pt was started on hepatin gtt. H/H remained stable. Initial plan was EGD/colonoscopy on Saturday. 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 Normal [facility] CONSULT PROGojessica 05-09-2024 CONSULT PROG HNO ID: [id number] Author: JOSÉ MIGUEL WHEELER PA-C Service: Cardiovascular Medicine Author Type: Physician Senior Designer/Art Director Type: Consult Progress Note Filed: 05/09/2024 10:56 Note Text: [facility] CARDI[facility]ASCULAR [facility]ICINE PROGRESS NOTE (Template ID [id number]) SERVICE DATE: 05/09/2024 SERVICE TIME: 0900 PRIMARY [...] systolic function is moderately decreased. - Percutaneous cigs-uk-dkgl repair of the mitral valve with 1 [...] -- 05/06/24 2130 activity - mobilize patient (me,oh) VTE Prophylaxis: VTE prophylaxis appropriate ASSESSMENT AND PLAN Chronic systolic HF - TTE 05/06: LVEF 15% - s/p ICD '19 - appears clinically compensated - GDMT: Toprol [...] De Los [place] Agree with transfer to [facility] for further evaluation and care José Miguel Wheeler PA-C Cardiology consults SIGNATURE: José Miguel Wheeler PA-C PATIENT NAME: José Miguel Antonio Jr. DATE: May 09, 2024 TIME: 9:15 AM For communication after 5 pm on weekdays and after 12 pm on weekends, please page the following: - Clinical Cardiology patients on all floors: page [phone] - All other patients: after hours RYLIE page [phone] - For any urgent or emerge (more content not included)... Normal [facility] Comprehensive metabolic 2000 panelon 05-09-2024 Albumin [Mass/Vol] 3.4 g/dL Low 3.9-4.9 [facility] Comment on above: Order Comment: Speci men Type: BLOOD SPECIMENOrdering Facility: [facility] Address: [address] [place] [address] Performed By: #### 2 4323-8, 36476-4, 07818-1, 3016-3 ####[facility] LABCLIA [id number] [place] [address] [place] ALP [Catalytic activity/Vol] 88 U/L Normal 38-113 [facility] Comment on above: Order Comment: Speci men Type: BLOOD SPECIMENOrdering Facility: [facility] Address: [address] [place] [address] Performed By: #### 2 4323-8, 09789-9, 84603-0, 3016-3 ####[facility] LABCLIA [id number] [place] [address] [place] ALT [Catalytic activity/Vol] 11 U/L Normal 10-54 [facility] Comment on above: Order Comment: Speci men Type: BLOOD SPECIMENOrdering Facility: [facility] Address: [address] [place] [address] Performed By: #### 2 4323-8, 70776-9, 02710-1, 6-3 ####[facility] LABCLIA [id number] [place] [address] [place] Anion gap [Moles/Vol] 10 mmol/L Normal 8-15 [facility] Comment on above: Order Comment: Speci men Type: BLOOD SPECIMENOrdering Facility: [facility] Address: [address] [place] [address] Performed By: #### 2 4323-8, 06372-2, , 3015-3 ####[facility] LABCLIA [id number] [place] [address] [place] AST [Catalytic activity/Vol] 17 U/L Normal 14-40 [facility] Comment on above: Order Comment: Speci men Type: BLOOD SPECIMENOrdering Facility: [facility] Address: [address] [place] [address] Performed By: #### 2 4323-8, 17288-5, 79252-9, 6-3 ####[facility] LABCLIA [id number] [place] [address] [place] Bilirubin [Mass/Vol] 0.7 mg/dL Normal 0.2-1.3 [facility] Comment on above: Order Comment: Speci men Type: BLOOD SPECIMENOrdering Facility: [facility] Address: [address] [place] [address] Performed By: #### 2 4323-8, 62216-2, 39712-1, 3015-3 ####[facility] LABCLIA [id number] [place] [address] [place] Calcium [Mass/Vol] 8.9 mg/dL Normal 8.5-10.2 [facility] Comment on above: Order Comment: Speci men Type: BLOOD SPECIMENOrdering Facility: [facility] Address: [address] [place] [address] Performed By: #### 2 4323-8, 05328-5, 97102-9, 6-3 ####[facility] LABCLIA [id number] [place] [address] [place] Chloride [Moles/Vol] 106 mmol/L Normal 98-107 [facility] Comment on above: Order Comment: Speci men Type: BLOOD SPECIMENOrdering Facility: [facility] Address: [address] [place] [address] Performed By: #### 2 4323-8, 43243-0, 53886-7, 6-3 ####[facility] LABCLIA [id number] [place] [address] [place] CO2 [Moles/Vol] 23 mmol/L Normal 22-30 [facility] Comment on above: Order Comment: Speci men Type: BLOOD SPECIMENOrdering Facility: [facility] Address: [address] [place] [address] Performed By: #### 2 4323-8, 12520-5, 72020-5, 6-3 ####[facility] LABCLIA [id number] [place] [address] [place] Creatinine [Mass/Vol] 2.02 mg/dL High 0.73-1.22 [facility] Comment on above: Order Comment: Speci men Type: BLOOD SPECIMENOrdering Facility: [facility] Address: [address] [place] [address] Performed By: #### 2 4323-8, 71705-6, 77083-1, 6-3 ####[facility] LABCLIA [id number] [place] [address] [place] Creatinine and Glomerular filtration rate.predicted panel (S/P/Bld) 32 mL/min/1.73m??? Low >=60 [facility] Comment on above: Order Comment: Dylan olvera Type: BLOOD SPECIMENOrdering Facility: [facility] Address: [address] [place] [address] Result Comment: Etta mated Glomerular Filtration Rate [...] actual GFR. Performed By: #### 2 4323-8, 47734-2, 59590-1, 6-3 ####[facility] LABCLIA [id number] [place] [address] [place] Glucose [Mass/Vol] 96 mg/dL Normal 74-99 [facility] Comment on above: Order Comment: Dylan olvera Type: BLOOD SPECIMENOrdering Facility: [facility] Address: [address] [place] [address] Result Comment: The [place] [employer] (ADA) provides guidance for cutoff [...] Standards of Medical Care in Diabetes 2016, [place] [employer]. Diabetes Care. 2016.39(Suppl 1). Performed By: #### 2 4323-8, 16445-7, 60074-4, 6-3 ####[facility] LABCLIA [id number] [place] [id number] [place] Potassium [Moles/Vol] 4.3 mmol/L Normal 3.7-5.1 [facility] Comment on above: Order Comment: Speci men Type: BLOOD SPECIMENOrdering Facility: [facility] Address: [address] [place] [address] Performed By: #### 2 4323-8, 24605-8, 77233-3, 3016-3 ####[facility] LABCLIA [id number] [place] [address] [place] Protein [Mass/Vol] 6.0 g/dL Low 6.3-8.0 [facility] Comment on above: Order Comment: Speci men Type: BLOOD SPECIMENOrdering Facility: [facility] Address: [address] [place] [address] Performed By: #### 2 4323-8, 02562-8, 45433-3, 6-3 ####[facility] LABCLIA [id number] [place] [address] [place] Sodium [Moles/Vol] 139 mmol/L Normal 136-144 [facility] Comment on above: Order Comment: Speci men Type: BLOOD SPECIMENOrdering Facility: [facility] Address: [address] [place] [address] Performed By: #### 2 4323-8, 07061-0, 21981-4, 6-3 ####[facility] LABCLIA [id number] [place] [id number] [place] Urea nitrogen [Mass/Vol] 35 mg/dL High 9-24 [facility] Comment on above: Order Comment: Speci men Type: BLOOD SPECIMENOrdering Facility: [facility] Address: [address] [place] [address] Performed By: #### 2 4323-8, 94507-1, 57518-6, 6-3 ####[facility] LABCLIA [id number] [place] [id number] [place] ECG COMPLETEon 05-09-2024 ECG COMPLETE Normal [facility] EKGon 05-09-2024 Electrocardiogram Ventricular Rate : 8 5 BPM Atrial Rate : 85 BPM P-R Interval : 181 ms QRS Duration : 123 ms Q-T Interval : 413 ms QTC Calculation(Bazett) : 492 ms Calculated P [place] : 78 degrees Calculated R [place] : -6 degrees Calculated T [place] : 135 degrees Sinus rhythm Multiform ventricular premature complexes Left bundle branch block Abnormal ECG Confirmed by SHERIE OSBORNE M.D. ([id number]) on 05/11/2024 3:03:05 PM NAME : JOSÉ MIGUEL ANTONIO PID : [id number] : 1940 Gender : Male Race : [...] Referred By : , Acquired by : [id number], [facility] Electrocardiogram Ventricular Rate : 8 5 BPM Atrial Rate : 85 BPM P-R Interval : 180 ms QRS Duration : 123 ms Q-T Interval : 406 ms QTC Calculation(Bazett) : 483 ms Calculated P [place] : 69 degrees Calculated R [place] : -7 degrees Calculated T [place] : 145 degrees Sinus rhythm Ventricular premature complex Left bundle branch block Abnormal ECG Confirmed by SHERIE OSBORNE M.D. (189) on 05/11/2024 3:03:15 PM NAME : PACOMAIAJOSÉ MIGUEL PID : [id number] : 1940 Gender : Male Race : [...] Referred By : , Acquired by : [id number], [facility] HIGH SENSITIVITY TROPONIN To n 05-09-2024 Troponin T.cardiac High sensitivity method [Mass/Vol] 38 ng/L High <12 [facility] Comment on above: Order Comment: Speci men Type: BLOOD SPECIMENOrdering Facility: [facility] Address: [address] [place] [address] Performed By: #### H STNT, 28392-8 ####[facility] LABCLIA [id number] [place] [address] [place] HISTORY PHYSICALon HISTORY PHYSICAL Normal [facility] HbA1c (Bld)on 05-09-2024 Average glucose Estimated from glycated hemoglobin (Bld) [Mass/Vol] 82 mg/dL Normal [facility] Comment on above: Order Comment: Rozi men Type: BLOOD SPECIMENOrdering Facility: [facility] Address: [address] [place] [address] Result Comment: eAG: (Estimated average glucose) is a calculated value from HgbA1c and is distribution sales representative of the average blood glucose level in the last 2-3 month period. Performed By: #### 5 5454-3 ####[facility] LABIA [id number] [place] [address] [place] HbA1c (Bld) [Mass fraction] 4.5 % Normal 4.3-5.6 [facility] Comment on above: Order Comment: Dylan may Type: BLOOD SPECIMENOrdering Facility: [facility] Address: [address] [place] [address] Result Comment: Amer ican Diabetes Association guidelines indicate that patients with HgbA1c in the range 5.7-6.4% are at increased risk for development of diabetes, and intervention by lifestyle modification may be beneficial. HgbA1c greater or equal to 6.5% is considered diagnostic of diabetes. Performed By: #### 5 5454-3 ####[facility] LABCLIA [id number] [address] [place] Iron and Iron binding capaci ty panelon 05-09-2024 Iron [Mass/Vol] 66 ug/dL Normal 41-186 [facility] Comment on above: Order Comment: Speci men Type: BLOOD SPECIMENOrdering Facility: [facility] Address: [address] [place], [place] [address] Performed By: #### 2 4323-8, 07591-5, 87088-1, 6-3 ####[facility] LABCLIA [id number] [address] [address] [place] Iron binding capacity [Mass/Vol] 250 ug/dL Normal 232-386 [facility] Comment on above: Order Comment: Speci men Type: BLOOD SPECIMENOrdering Facility: [facility] Address: [address] [place] [address] Performed By: #### 2 4323-8, 65891-1, , 3015-3 ####[facility] LABCLIA [id number] [place] [id number] [place] Iron/TIBC [Molar ratio] 26.4 % Normal 15.0-57.0 [facility] Comment on above: Order Comment: Speci men Type: BLOOD SPECIMENOrdering Facility: [facility] Address: [address] [place] [address] Performed By: #### 2 4323-8, 60738-7, , 3015-3 ####[facility] LABIA [id number] [address] [address] [place] Magnesium SerPl-mCncon 05-09 Magnesium [Mass/Vol] 2.6 mg/dL High 1.7-2.3 [facility] Comment on above: Order Comment: Speci men Type: BLOOD SPECIMENOrdering Facility: [facility] Address: [address] [place] [address] Performed By: #### 2 4323-8, 79917-6, , 3015-3 ####[facility] LABCLIA [id number] [place] [id number] [place] Magnesium [Mass/Vol] 2.4 mg/dL High 1.7-2.3 [facility] Comment on above: Order Comment: Speci men Type: BLOOD SPECIMEN [facility] Address: [address] [place] [address] Performed By: #### 3 4528-0, PTTAC #### [facility] CLIA [id number] [address] [facility] [place] [address] [place] [facility] Natriuretic peptide.B prohormone N-Terminal [Mass/Vol] 50278 pg/mL High <450 [facility] Comment on above: Order Comment: Speci men Type: BLOOD SPECIMENOrdering Facility: [facility] Address: [address] [place] [address] Performed By: #### H STNT, 31570-4 ####[facility] LABCLIA [id number] [address] [place] [address] [place] NURSING PROGon 05-09-2024 NURSING PROG Normal [facility] NURSING PROG HNO ID: [id number] Author: BO ZHAO RN Service: Nursing Author Type: Registered Nurse Type: Nursing Progress Note Filed: 05/09/2024 13:26 Note Text: Patient accepted at [facility]: G81, Bed 15 11:00 - Clinical hand off report given to receiving RNMorena @ . Receiving RN and patient aware that patient will be transported with the Heparin drip. Next lab draw to occur at 12:00, (prior to or after arrival dependent upon timing of transport). 12:30 - Scheduled Heparin draw completed at [facility]. APPTT @ 72.4. Dose changed per Nomogram. Next scheduled lab draw @ 18:00. Receiving RN at [facility] and patient are aware. Patient requesting daily lasix dose be given after arrival to [facility]. Receiving RN aware. Patient is aware of, has actively participated in, and is in agreement with treatment plan of care. 13:25 - Patient transferred to [facility] transport in stable condition BP 100/61 Pulse 77 Temp 36.5 ?C (97.7 ?F) (Oral) Resp 18 Ht 182.9 cm (6') Wt 81.1 kg (178 lb 12.7 oz) SpO2 98% BMI 24.25 kg/m? Normal [facility] PT panel Coag (PPP)on 2023 INR Coag (PPP) [Relative time] 1.3 {INR} Normal 0.9-1.3 [facility] Comment on above: Order Comment: Dylan olvera Type: BLOOD SPECIMENOrdering Facility: [facility] Address: [address] [place] [address] Result Comment: Loulou min K Antagonist (VKA) Therapeutic Range: INR 2 to 3 (Target INR of 2.5)Note: For patients treated with VKA drugs, such as warfarin, the [place] College [employer] 2012 Guideline recommends [...] of 3).Olamide GH, et al. Chest 2012, 141:7S-47SJavier PEREZ, et al. [facility] 2017, 70: 252-289 Performed By: #### 3 4528-0, PTTAC ####[facility] LABCLIA [id number] [place] [address] [place] PT Coag (PPP) [Time] 13.3 s High 9.7-13.0 [facility] Comment on above: Order Comment: Dylan olvera Type: BLOOD SPECIMENOrdering Facility: [facility] Address: [address] [place] [address] Performed By: #### 3 4528-0, PTTAC ####[facility] LABCLIA [id number] [place] [address] [place] PTT, ANTICOAGULANT THERAPYon 05-09-2024 aPTT Coag (PPP) [Time] 31.7 s Normal 23.0-32.4 [facility] Comment on above: Order Comment: Speci men Type: BLOOD SPECIMENOrdering Facility: [facility] Address: [address] [place] [address] Performed By: #### 3 4528-0, PTTAC ####[facility] LABCLIA [id number] [place] [address] [place] aPTT Coag (PPP) [Time] 72.4 s High 23.0-32.4 [facility] Comment on above: Order Comment: Speci men Type: BLOOD SPECIMEN [facility] Address: [address] [place] [address] Performed By: #### P TTAC #### [facility] CLIA [id number] [address] [place], [place] [id number] [place] [address] [place] aPTT Coag (PPP) [Time] 82.1 s High 23.0-32.4 [facility] Comment on above: Order Comment: Speci men Type: BLOOD SPECIMEN [facility] Address: [address] [place] [address] Performed By: #### L [id number] #### [facility] CLIA [id number] [address] [place] [address] [place] TSH SerPl-aCncon 05-09-2024 TSH Qn 0.519 m[IU]/L Normal 0.270-4.200 [facility] Comment on above: Order Comment: Speci men Type: BLOOD SPECIMENOrdering Facility: [facility] Address: [address] [place] [address] Performed By: #### 2 4323-8, 71822-6, 18098-9, 3016-3 ####[facility] LABCLIA [id number] [place] [address] [place] XR CHEST 1V FRONTAL PORTon 0 05-09-2024 XR CHEST 1V FRONTAL PORT Normal [facility] Basic metabolic 2000 panelon 05-08-2024 Anion gap [Moles/Vol] 11 mmol/L Normal 8-15 [facility] Comment on above: Order Comment: Speci men Type: BLOOD SPECIMEN [facility] Address: [address] [place] [address] Performed By: #### 3 4528-0, PTTAC #### [facility] CLIA [id number] [address] [place] [address] [place] Calcium [Mass/Vol] 8.4 mg/dL Low 8.5-10.2 [facility] Comment on above: Order Comment: Speci men Type: BLOOD SPECIMEN [facility] Address: [address] [place] [address] Performed By: #### 3 4528-0, PTTAC #### [facility] CLIA [id number] [address] [place] [address] [place] Chloride [Moles/Vol] 105 mmol/L Normal 98-107 [facility] Comment on above: Order Comment: Speci men Type: BLOOD SPECIMEN [facility] Address: [address] [place] [address] Performed By: #### 3 4528-0, PTTAC #### [facility] CLIA [id number] [address] [place] [address] [place] CO2 [Moles/Vol] 24 mmol/L Normal 22-30 [facility] Comment on above: Order Comment: Speci men Type: BLOOD SPECIMEN [facility] Address: [address] [place] [address] Performed By: #### 3 4528-0, PTTAC #### [facility] CLIA [id number] [address] [place] [address] [place] Creatinine [Mass/Vol] 2.07 mg/dL High 0.73-1.22 [facility] Comment on above: Order Comment: Speci men Type: BLOOD SPECIMEN [facility] Address: [address] [place] [address] Performed By: #### 3 4528-0, PTTAC #### [facility] CLIA [id number] [facility] [place] [address] [place] Creatinine and Glomerular filtration rate.predicted panel (S/P/Bld) 31 mL/min/1.73m??? Low >=60 [facility] Comment on above: Order Comment: Dylan olvera Type: BLOOD SPECIMEN [facility] Address: [address] [place] [address] Result Comment: Etta mated Glomerular Filtration Rate [...] #### [facility] CLIA [id number] [address] [place] [address] [place] Glucose [Mass/Vol] 105 mg/dL High 74-99 [facility] Comment on above: Order Comment: Dylan olvera Type: BLOOD SPECIMEN [facility] Address: [address] [place] [address] Result Comment: The [place] Diabetes Association (ADA) provides guidance for cutoff [...] Standards of Medical Care in Diabetes 2016, [place] Diabetes Association. Diabetes Care. 2016.39(Suppl 1). Performed By: #### 3 4528-0, PTTAC #### [facility] CLIA [id number] [address] [place] Potassium [Moles/Vol] 3.4 mmol/L Low 3.7-5.1 [facility] Comment on above: Order Comment: Speci men Type: BLOOD SPECIMEN [facility] Address: [address] [place] [address] Performed By: #### 3 4528-0, PTTAC #### [facility] CLIA [id number] [address] [place] [id number] [place] Sodium [Moles/Vol] 140 mmol/L Normal 136-144 [facility] Comment on above: Order Comment: Speci men Type: BLOOD SPECIMEN [facility] Address: [address] [place] [address] Performed By: #### 3 4528-0, PTTAC #### [facility] CLIA [id number] [address] [place] [address] [place] Urea nitrogen [Mass/Vol] 39 mg/dL High 9-24 [facility] Comment on above: Order Comment: Speci men Type: BLOOD SPECIMEN [facility] Address: [address] [place] [address] Performed By: #### 3 4528-0, PTTAC #### [facility] CLIA [id number] [address] [place] [address] [place] CBC panel Auto (Bld)on 05-08 Erythrocyte distribution width (RBC) [Ratio] 22.1 % High 11.5-15.0 [facility] Comment on above: Order Comment: Speci men Type: BLOOD SPECIMEN [facility] Address: [address] [place] [address] Performed By: #### L [id number] #### [facility] CLIA [id number] [address] [place] Hematocrit (Bld) [Volume fraction] 27.9 % Low 39.0-51.0 [facility] Comment on above: Order Comment: Speci men Type: BLOOD SPECIMEN [facility] Address: [address] [place] [address] Performed By: #### L [id number] #### [facility] IA [id number] [address] [place] [address] [place] Hemoglobin (Bld) [Mass/Vol] 8.1 g/dL Low 13.0-17.0 [facility] Comment on above: Order Comment: Speci men Type: BLOOD SPECIMEN [facility] Address: [address] [place] [address] Performed By: #### L [id number] #### [facility] IA [id number] [address] [place] [address] [place] MCH (RBC) [Entitic mass] 29.9 pg Normal 26.0-34.0 [facility] Comment on above: Order Comment: Speci men Type: BLOOD SPECIMEN [facility] Address: [address] [place] [address] Performed By: #### L [id number] #### [facility] IA [id number] [address] [place] [address] [place] MCHC (RBC) [Mass/Vol] 29.0 g/dL Low 30.5-36.0 [facility] Comment on above: Order Comment: Speci men Type: BLOOD SPECIMEN [facility] Address: [address] [place] [address] Performed By: #### L [id number] #### [facility] IA [id number] [address] [place] [address] [place] MCV (RBC) [Entitic vol] 103.0 fL High 80.0-100.0 [facility] Comment on above: Order Comment: Speci men Type: BLOOD SPECIMEN [facility] Address: [address] [place] [address] Performed By: #### L [id number] #### [facility] IA [id number] [place] [address] [place] Nucleated RBC (Bld) [#/Vol] 10*3/uL Normal <0.01 [facility] Comment on above: Order Comment: Speci men Type: BLOOD SPECIMEN [facility] Address: [address] [place] [address] Performed By: #### L [id number] #### [facility] CLIA [id number] [address] [place] [address] [place] Platelet mean volume (Bld) [Entitic vol] 10.6 fL Normal 9.0-12.7 [facility] Comment on above: Order Comment: Speci men Type: BLOOD SPECIMEN [facility] Address: [address] [place] [address] Performed By: #### L [id number] #### [facility] CLIA [id number] [address] [place] [address] [place] Platelets (Bld) [#/Vol] 166 10*3/uL Normal 150-400 [facility] Comment on above: Order Comment: Speci men Type: BLOOD SPECIMEN [facility] Address: [address] [place] [address] Performed By: #### L [id number] #### [facility] CLIA [id number] [address] [place] [address] [place] RBC (Bld) [#/Vol] 2.71 10*6/uL Low 4.20-6.00 [facility] Comment on above: Order Comment: Speci men Type: BLOOD SPECIMEN [facility] Address: [address] [place] [address] Performed By: #### L [id number] #### [facility] CLIA [id number] [address] [place] [address] [place] WBC (Bld) [#/Vol] 5.29 10*3/uL Normal 3.70-11.00 [facility] Comment on above: Order Comment: Speci men Type: BLOOD SPECIMEN [facility] Address: [address] [place] [address] Performed By: #### L [id number] #### [facility] CLIA [id number] [address] [place] [address] [place] CONSULT PROGon 05-08-2024 CONSULT PROG HNO ID: [id number] Author: LORENA GALINDO APRN.RUBBER COMPOUNDER FORMULATOR Service: Gastroenterology Author Type: Nurse Practitioner Type: Consult Progress Note Filed: 05/08/2024 15:15 Note Text: Brief GI plan of care: Met with patient at bedside. Called 3 daughters via speaker phone whom were cloud operations engineer for entire interview. Patient is still struggling [...] of Epic record/Care Everywhere. Spoke with Alex (vending service technician) whom states no adverse effects of oral contrast to kidney so will proceed with CT A/P oral contrast only at this time. GI team to follow along with results of Ct, final decisions this weekend. Spoke with INOCENTE Dobbins (endo coordinator) whom states is was confirmed per anesthesia yesterday case can be done at [facility] so long as during working hours (not with cloud operations engineer staff/resources). Updated Dr. Heredia, Dr. Bardales. Normal [facility] CONSULT PROG HNO ID: [id number] Author: DEBBI NICOLE APRN.RUBBER COMPOUNDER FORMULATOR Service: Cardiovascular Medicine Author Type: Nurse Practitioner Type: Consult Progress Note Filed: 05/08/2024 10:46 Note Text: [facility] CONSULT PROGRESS NOTE (Template ID [id number]) CONSULTING SERVICE: Cardiology: Consult Team PRIMARY SERVICE: [...] systolic function is moderately decreased. - Percutaneous rkoc-mg-dkhv repair of the mitral valve with 1 [...] male [facility] , who presented from outpatient Echo lab at [facility] to ER due for generalized weakness and SANTILLAN. On admission he was found to be anemic with drop in his H and H. and stools Guaiac +. Treated with iron. NT Pro BNP 27614. CXR: left pleural effusions. He completed 325 mg ASA and Plavix course for 4 weeks. AC was held while on DAPT and started on Xarelto on 03/29/24 for suspected LV thrombus. Chronic combined systolic and diastolic CHF, h/o severe ICM (LV EF ~15%), s/p DC-ICD (in 2019), (more content not included)... Normal [facility] CT ABD/PEL WO IVCONon 2023 CT ABD/PEL WO IVCON * * *Final Report* * * DATE OF EXAM: May 08 2024 1:40PM [facility] 0531 - CT ABD/PEL WO IVCON [...] small volume of stool in the colon. Neonatal Int[facility] Transcribe Date/Time: May 08 2024 3:12P Dictated by : EVANS SENIOR MD This examination was interpreted and the report reviewed and electronically signed by: EVANS SENIOR MD on May 08 2024 3:24PM EST [id number] Normal [facility] Magnesium SerPl-mCncon 05-08 Magnesium [Mass/Vol] 2.3 mg/dL Normal 1.7-2.3 [facility] Comment on above: Order Comment: Speci men Type: BLOOD SPECIMEN [facility] Address: [address] [place] [address] Performed By: #### 3 4528-0, PTTAC #### [facility] CLIA [id number] [address] [facility] [place] [address] [place] NURSING PROGon 05-08-2024 NURSING PROG HNO ID: [id number] Author: MANDI PITTS RN Service: ? Author [...] will notify LIP of any changes. Normal [facility] PTT, ANTICOAGULANT THERAPYon 05-08-2024 aPTT Coag (PPP) [Time] 66.1 s High 23.0-32.4 [facility] Comment on above: Order Comment: Dylan olvera Type: BLOOD SPECIMEN [facility] Address: [address] [place] [address] Performed By: #### P TTAC #### [facility] CLIA [id number] [address] [place], [place] [id number] [place] [address] aPTT Coag (PPP) [Time] 48.5 s High 23.0-32.4 [facility] Comment on above: Order Comment: Dylan olvera Type: BLOOD SPECIMEN [facility] Address: [address] [place] [address] Performed By: #### L [id number] #### [facility] CLIA [id number] [address] [place] [address] [facility] aPTT Coag (PPP) [Time] 56.6 s High 23.0-32.4 [facility] Comment on above: Order Comment: Dylan olvera Type: BLOOD SPECIMEN [facility] Address: [address] [place] [address] Performed By: #### P TTAC #### [facility] CLIA [id number] [address] [place] [address] [place] aPTT Coag (PPP) [Time] 80.2 s High 23.0-32.4 [facility] Comment on above: Order Comment: Speci men Type: BLOOD SPECIMEN [facility] Address: [address] [place] [address] Performed By: #### 3 4528-0, PTTAC #### [facility] IA [id number] [address] [place] [address] [place] Basic metabolic 2000 panelon 05-07-2024 Anion gap [Moles/Vol] 11 mmol/L Normal 8-15 [facility] Comment on above: Order Comment: Speci men Type: BLOOD SPECIMEN [facility] Address: [address] [place] [address] Performed By: #### L [id number] #### [facility] [id number] [address] [place] [address] [place] Calcium [Mass/Vol] 8.6 mg/dL Normal 8.5-10.2 [facility] Comment on above: Order Comment: Speci men Type: BLOOD SPECIMEN [facility] Address: [address] [place] [address] Performed By: #### L [id number] #### [facility] [place] [id number] [address] [place], [place] [address] [place] Chloride [Moles/Vol] 104 mmol/L Normal 98-107 [facility] Comment on above: Order Comment: Speci men Type: BLOOD SPECIMEN Ordering Facility: [facility] Address: [address] [place] [address] Performed By: #### L [id number] #### [facility] IA [id number] [address] [place], [place] [address] [place] CO2 [Moles/Vol] 25 mmol/L Normal 22-30 [facility] ital Comment on above: Order Comment: Speci men Type: BLOOD SPECIMEN Ordering Facility: [facility] Address: [address] [place], [place] [id number] Performed By: #### L [id number] #### [facility] CLIA [id number] [address] [place] [address] [place] Creatinine [Mass/Vol] 2.09 mg/dL High 0.73-1.22 [facility] Comment on above: Order Comment: [facility] Type: BLOOD SPECIMEN Ordering Facility: [facility] Address: [address] [place] [address] Performed By: #### L [id number] #### [facility] CLIA [id number] [address] [place] [address] [place] Creatinine and Glomerular filtration rate.predicted panel (S/P/Bld) 31 mL/min/1.73m??? Low >=60 [facility] Comment on above: Order Comment: [facility] Type: BLOOD SPECIMEN Ordering Facility: [facility] Address: [address] [place] [address] Result Comment: Etta mated Glomerular Filtration Rate [...] reflect actual GFR. Performed By: #### L [id number] #### [facility] CLIA [id number] [address] [place] [address] [place] Glucose [Mass/Vol] 93 mg/dL Normal 74-99 [facility]ital Comment on above: Order Comment: [facility] Type: BLOOD SPECIMEN Ordering Facility: [facility] Address: [address] [place] [address] Result Comment: The [place] Diabetes Association (ADA) provides guidance for cutoff [...] Standards of Medical Care in Diabetes 2016, [place] [employer]. Diabetes Care. 2016.39(Suppl 1). Performed By: #### L [id number] #### [facility] CLIA [id number] [address] [place] [address] [place] Potassium [Moles/Vol] 3.6 mmol/L Low 3.7-5.1 [facility] Comment on above: Order Comment: Speci men Type: BLOOD SPECIMEN Ordering Facility: [facility] Address: [address] [place] [address] Performed By: #### L [id number] #### [facility] IA [id number] [address] [place] Sodium [Moles/Vol] 140 mmol/L Normal 136-144 [facility] Comment on above: Order Comment: Speci men Type: BLOOD SPECIMEN Ordering Facility: [facility] Address: [address] [place] [address] Performed By: #### L [id number] #### [facility] IA [id number] [address] [place] [address] [place] Urea nitrogen [Mass/Vol] 42 mg/dL High 9-24 [facility] Comment on above: Order Comment: Speci men Type: BLOOD SPECIMEN Ordering Facility: [facility] Address: [address] [place] [address] Performed By: #### L [id number] #### [facility] IA [id number] [address] [place] [address] [place] CBC panel Auto (Bld)on 05-07 Erythrocyte distribution width (RBC) [Ratio] 22.4 % High 11.5-15.0 [facility] Comment on above: Order Comment: Speci men Type: BLOOD SPECIMEN Ordering Facility: [facility] Address: [address] [place] [address] Performed By: #### 3 4528-0, PTTAC #### [facility] IA [id number] [address] [place] [address] [place] Hematocrit (Bld) [Volume fraction] 27.2 % Low 39.0-51.0 [facility] Comment on above: Order Comment: Speci men Type: BLOOD SPECIMEN Ordering Facility: [facility] Address: [address] [place] [address] Performed By: #### 3 4528-0, PTTAC #### [facility] IA [id number] [address] [place] [address] [place] Hemoglobin (Bld) [Mass/Vol] 8.0 g/dL Low 13.0-17.0 [facility] Comment on above: Order Comment: Speci men Type: BLOOD SPECIMEN Ordering Facility: [facility] Address: [address] [place] [address] Performed By: #### 3 4528-0, PTTAC #### [facility] IA [id number] [address] [place] [address] [place] MCH (RBC) [Entitic mass] 30.4 pg Normal 26.0-34.0 [facility] Comment on above: Order Comment: Speci men Type: BLOOD SPECIMEN Ordering Facility: [facility] Address: [address] [place] [address] Performed By: #### 3 4528-0, PTTAC #### [facility] IA [id number] [address] [place] [address] [place] MCHC (RBC) [Mass/Vol] 29.4 g/dL Low 30.5-36.0 [facility] Comment on above: Order Comment: Speci men Type: BLOOD SPECIMEN Ordering Facility: [facility] Address: [address] [place] [address] Performed By: #### 3 4528-0, PTTAC #### [facility] IA [id number] [address] [place] [address] [place] MCV (RBC) [Entitic vol] 103.4 fL High 80.0-100.0 [facility] Comment on above: Order Comment: Speci men Type: BLOOD SPECIMEN Ordering Facility: [facility] Address: [address] [place] [address] Performed By: #### 3 4528-0, PTTAC #### [facility] CLIA [id number] [address] [place] [address] [place] Nucleated RBC (Bld) [#/Vol] 0.02 10*3/uL High <0.01 [facility] Comment on above: Order Comment: Speci men Type: BLOOD SPECIMEN Ordering Facility: [facility] Address: [address] [place] [address] Performed By: #### 3 4528-0, PTTAC #### [facility] CLIA [id number] [address] [place] [address] [place] Platelet mean volume (Bld) [Entitic vol] 10.5 fL Normal 9.0-12.7 [facility] Comment on above: Order Comment: Speci men Type: BLOOD SPECIMEN Ordering Facility: [facility] Address: [address] [place] [address] Performed By: #### 3 4528-0, PTTAC #### [facility] CLIA [id number] [address] [place] [address] [place] Platelets (Bld) [#/Vol] 158 10*3/uL Normal 150-400 [facility] Comment on above: Order Comment: Speci men Type: BLOOD SPECIMEN Ordering Facility: [facility] Address: [address] [place] [address] Performed By: #### 3 4528-0, PTTAC #### [facility] CLIA [id number] [address] [place] [address] [place] RBC (Bld) [#/Vol] 2.63 10*6/uL Low 4.20-6.00 [facility] Comment on above: Order Comment: Speci men Type: BLOOD SPECIMEN Ordering Facility: [facility] Address: [address] [place] [address] Performed By: #### 3 4528-0, PTTAC #### [facility] IA [id number] [address] [place] [address] [place] WBC (Bld) [#/Vol] 5.25 10*3/uL Normal 3.70-11.00 [facility] Comment on above: Order Comment: Speci men Type: BLOOD SPECIMEN Ordering Facility: [facility] Address: [address] [place] [address] Performed By: #### 3 4528-0, PTTAC #### [facility] IA [id number] [address] [place] [address] [place] Erythrocyte distribution width (RBC) [Ratio] 22.5 % High 11.5-15.0 [facility] Comment on above: Order Comment: Speci men Type: BLOOD SPECIMEN Ordering Facility: [facility] Address: [address] [place] [address] Performed By: #### P TTAC #### [facility] IA [id number] [address] [place] Hematocrit (Bld) [Volume fraction] 28.8 % Low 39.0-51.0 [facility] Comment on above: Order Comment: Speci men Type: BLOOD SPECIMEN Ordering Facility: [facility] Address: [address] [place] [address] Performed By: #### P TTAC #### [facility] IA [id number] [address] [place] [address] [place] Hemoglobin (Bld) [Mass/Vol] 8.4 g/dL Low 13.0-17.0 [facility] Comment on above: Order Comment: Speci men Type: BLOOD SPECIMEN Ordering Facility: [facility] Address: [address] [place] [address] Performed By: #### P TTAC #### [facility] IA [id number] [address] [place] [id number] [place] MCH (RBC) [Entitic mass] 30.2 pg Normal 26.0-34.0 [facility] Comment on above: Order Comment: Speci men Type: BLOOD SPECIMEN Ordering Facility: [facility] Address: [address] [place] [address] Performed By: #### P TTAC #### [facility] IA [id number] [address] [place] [address] [place] MCHC (RBC) [Mass/Vol] 29.2 g/dL Low 30.5-36.0 [facility] Comment on above: Order Comment: Speci men Type: BLOOD SPECIMEN Ordering Facility: [facility] Address: [address] [place] [address] Performed By: #### P TTAC #### [facility] IA [id number] [address] [place] [address] [place] MCV (RBC) [Entitic vol] 103.6 fL High 80.0-100.0 [facility] Comment on above: Order Comment: Speci men Type: BLOOD SPECIMEN Ordering Facility: [facility] Address: [address] [place] [address] Performed By: #### P TTAC #### [facility] IA [id number] [address] [place] [address] [place] Nucleated RBC (Bld) [#/Vol] 0.03 10*3/uL High <0.01 [facility] Comment on above: Order Comment: Speci men Type: BLOOD SPECIMEN Ordering Facility: [facility] Address: [address] [place] [address] Performed By: #### P TTAC #### [facility] IA [id number] [address] [place] [address] [place] Platelet mean volume (Bld) [Entitic vol] 10.6 fL Normal 9.0-12.7 [facility] Comment on above: Order Comment: Speci men Type: BLOOD SPECIMEN Ordering Facility: [facility] Address: [address] [place] [address] Performed By: #### P TTAC #### [facility] IA [id number] [address] [place] [id number] [place] Platelets (Bld) [#/Vol] 160 10*3/uL Normal 150-400 [facility] Comment on above: Order Comment: Speci men Type: BLOOD SPECIMEN Ordering Facility: [facility] Address: [address] [place] [address] Performed By: #### P TTAC #### [facility] CLIA [id number] [address] [place] [address] [facility] RBC (Bld) [#/Vol] 2.78 10*6/uL Low 4.20-6.00 [facility] Comment on above: Order Comment: Speci men Type: BLOOD SPECIMEN Ordering Facility: [facility] Address: [address] [place] [address] Performed By: #### P TTAC #### [facility] CLIA [id number] [address] [place], [place] [address] [place] [address] OF [facility] WBC (Bld) [#/Vol] 6.32 10*3/uL Normal 3.70-11.00 [facility] Comment on above: Order Comment: Speci men Type: BLOOD SPECIMEN Ordering Facility: [facility] Address: [address] [place] [address] Performed By: #### P TTAC #### [facility] IA [id number] [address] [place] [address] [facility] CONSULTon 05-07-2024 CONSULT HNO ID: [id number] Author: SWATHI DE LOS SANTOS MD Service: Cardiovascular Medicine Author Type: Physician Type: Consults Filed: 05/07/2024 12:07 Note Text: CONSULT: CARDIOLOGY SERVICE SERVICE DATE: 05/07/2024 SERVICE TIME: 9:09 am CONSULTING PHYSICIAN: Richard eD Los Santos PCP: Samm Thompson MD ATTENDING: [...] male followed [facility] Li[facility] with h/o severe ICM (LV EF ~15%), [...] presented yesterday from outpatient echo lab at [facility] to ER due for generalized weakness [...] iron. Denies melena. His NT Pro BNP 70002. CXR: left pleural effusions. He was tested +Guaiac on admission PAST MEDICAL HISTORY 09/03/2022: Carotid stenosis, asymptomatic, bilateral No date: Chronic back pain Comment: stenosis of the back 09/03/2022: Chronic 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) No date: Dyslipidemia No date: GERD (gastroesophageal reflux disease) No date: Heart failure, acute systolic ([facility]) No date: Hypertension No date: Hypothyroid No date: Myocardial infarct, old No date: Occlusion and stenosis of carotid artery without mention of cerebral infarction 2020: Prostate cancer ([facility]) 11/17/2012: PVD (peripheral vascular disease) ([facility]) 09/03/2022: Stroke (cerebrum) ([facility]) No date: Systolic heart failure ([facility]) No date: Thyroid disorder 04/26/2023: 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 kidney disease, unspecified CKD stage, unspecified whether correction insulin use (HCC) 04/28/2012: Ventricular tachycardia (HCC) PAST SURGICAL HISTORY 2012: ANGIOGRAPHY, EXT CAROTID; [...] Artery Disease Father Heart Attack Father fatal [place] at age 77 Ischemic Heart Disease Brother CABGx6 first at age 72 No Known Problems Maternal Grandmother No Known Problems Maternal Grandfather No Known Problems Paternal Grandmother No Known Problems Paternal Grandfather No Known Problems Daughter No Known Problems Daughter No Known Problems Daughter other (Other) Other paternal cousin at age 50 of [place] Social History Tobacco Use Smoking status: Former [...] Take 1,000 Units by mouth as needed. [employer] THYROID 15 mg tablet 05/05/2024 Yes Yes [...] mg by (more content not included)... Normal [facility] CONSULT HNO ID: [id number] Author: CARLOS HOUSER APRN.CNP Service: Gastroenterology Author [...] Patient reports having OP ECHO done at [facility] yesterday, noted to be more weak, family [...] artery disease involving coronary bypass graft of [place] heart without angina pectoris (POA: Yes) #Systolic heart failure (HCC) (POA: Yes) #S/P CABG (coronary artery bypass graft) (POA: Yes) #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 kidney disease, unspecified CKD stage, unspecified whether correction insulin use (HCC) (POA: Yes) #Stage 3b [...] acute systolic (more content not included)... Normal [facility] Ferritin SerPl-mCncon 2023 Ferritin [Mass/Vol] 804.6 ng/mL High 30.3-565.7 [facility] Comment on above: Order Comment: Dylan olvera Type: BLOOD SPECIMEN Ordering Facility: [facility] Address: [address] [place] [address] Performed By: #### L [id number] #### [facility] CLIA [id number] [facility] [place] [address] [place] Iron and Iron binding capaci ty panelon 05-07-2024 Iron [Mass/Vol] 56 ug/dL Normal 41-186 [facility] ital Comment on above: Order Comment: Dylan olvera Type: BLOOD SPECIMEN Ordering Facility: [facility] Address: [address] [place] [address] Performed By: #### L [id number] #### [facility] CLIA [id number] [address] [place] [address] [place] Iron binding capacity [Mass/Vol] 239 ug/dL Normal 232-386 [facility] Comment on above: Order Comment: Dylan olvera Type: BLOOD SPECIMEN Ordering Facility: [facility] Address: [address] [place] [address] Performed By: #### L [id number] #### [facility] CLIA [id number] [place] [address] [place] Iron/TIBC [Molar ratio] 23.4 % Normal 15.0-57.0 [facility] Comment on above: Order Comment: Dylan olvera Type: BLOOD SPECIMEN Ordering Facility: [facility] Address: [address] [place] [address] Performed By: #### L [id number] #### [facility] IA [id number] [address] [place] [address] [place] Magnesium SerPl-mCncon 05-07 Magnesium [Mass/Vol] 2.4 mg/dL High 1.7-2.3 [facility] Comment on above: Order Comment: Dylan olvera Type: BLOOD SPECIMEN Ordering Facility: [facility] Address: [address] [place] [address] Performed By: #### L [id number] #### [facility] IA [id number] [address] [place], [place] [id number] [place] PT panel Coag (PPP)on 2023 INR Coag (PPP) [Relative time] 1.4 {INR} High 0.9-1.3 [facility] Comment on above: Order Comment: Dylan [facility]vera Type: BLOOD SPECIMEN Ordering Facility: [facility] Address: [address] [place] [address] Result Comment: Loulou min K Antagonist (VKA) Therapeutic Range: INR 2 to 3 (Target INR of 2.5) Note: For patients treated with VKA drugs, such as warfarin, the [place] [employer] 2012 Guideline recommends [...] Chest 2012, 141:7S-47S Javier RA, et al. [facility] 2017, 70: 252-289 Performed By: #### 3 4528-0, PTTAC #### [facility] CLIA [id number] [address] [place] [address] [place] PT Coag (PPP) [Time] 14.9 s High 9.7-13.0 [facility] Comment on above: Order Comment: Speci men Type: BLOOD SPECIMEN Ordering Facility: [facility] Address: [address] [place] [address] Performed By: #### 3 4528-0, PTTAC #### [facility] CLIA [id number] [address] [place] [id number] [place] PTT, ANTICOAGULANT THERAPYon 05-07-2024 aPTT Coag (PPP) [Time] 76.0 s High 23.0-32.4 [facility] Comment on above: Order Comment: Speci men Type: BLOOD SPECIMEN Ordering Facility: [facility] Address: [address] [place] [address] Performed By: #### 3 4528-0, PTTAC #### [facility] CLIA [id number] [address] [place] [id number] [place] aPTT Coag (PPP) [Time] 30.8 s Normal 23.0-32.4 [facility] Comment on above: Order Comment: Speci men Type: BLOOD SPECIMEN Ordering Facility: [facility] Address: [address] [place] [address] Performed By: #### 3 4528-0, PTTAC #### [facility] CLIA [id number] [address] [place] [address] [facility] THERAPY NTon 05-07-2024 THERAPY NT HNO ID: [id number] Author: JENNY JULIEN, OTR/L Service: Occupational Therapy Author Type: Occupational Therapist Type: Therapy (PT/OT/Speech/Resp) Filed: 05/07/2024 15:43 Note Text: Occupational Therapy consult received. Chart reviewed and spoke with Aaron PT who reports no acute care OT needs are identified at this time. Current nursing and PT 6 clicks score is 24. Plan to d/c OT consult. Normal [facility] THERAPY NT HNO ID: [id number] Author: ADRIANA BLACKMAN, PT, DPT Service: Physical Therapy Author Type: Physical Therapist Type: Therapy (PT/OT/Speech/Resp) Filed: 05/07/2024 14:14 Note Text: Physical Therapy Evaluation Summary SERVICE DATE: 05/07/2024 SERVICE TIME: 1111 to 1204 ROOM: [place] [address] PT 6 Clicks Score: 24 DISCHARGE RECOMMENDATIONS [...] steps, reports going to OP cardiac rehab [facility] [employer]. Reports distance pt able to ambulate has [...] Reduced mobility-other TREATMENT INTERVENTIONS Evaluation, Gait Training (52334), Therapeutic Activity (05247) Timed Code Treatment (minutes): 38 Skilled Treatment [...] therefore, use of WW is recommended at NM. Gait Device: Wheeled Walker General Deviations/Observations: Dolores [...] Strengthening, Functi (more content not included)... Normal [facility] CBC W Auto Differential pane l (Bld)on 05-06-2024 Basophils (Bld) [#/Vol] 0.04 10*3/uL Normal <0.11 [facility] Comment on above: Order Comment: Speci men Type: BLOOD SPECIMEN Ordering Facility: [facility] Address: [address] [place] [address] Performed By: #### P TTAC #### [facility] CLIA [id number] [address] [place] [address] [place] Basophils/100 WBC (Bld) 0.6 % Normal [facility] Comment on above: Order Comment: Speci men Type: BLOOD SPECIMEN Ordering Facility: [facility] Address: [address] [place] [address] Performed By: #### P TTAC #### [facility] CLIA [id number] [address] [place] [address] [place] Differential cell count method Nom (Bld) Auto Normal [facility] Comment on above: Order Comment: Speci men Type: BLOOD SPECIMEN Ordering Facility: [facility] Address: [address] [place] [address] Performed By: #### P TTAC #### [facility] CLIA [id number] [address] [place] [address] [place] Eosinophils (Bld) [#/Vol] 0.07 10*3/uL Normal <0.46 [facility] Comment on above: Order Comment: Speci men Type: BLOOD SPECIMEN Ordering Facility: [facility] Address: [address] [place] [address] Performed By: #### P TTAC #### [facility] IA [id number] [place] [address] [place] Eosinophils/100 WBC (Bld) 1.1 % Normal [facility] Comment on above: Order Comment: Speci men Type: BLOOD SPECIMEN Ordering Facility: [facility] Address: [address] [place] [address] Performed By: #### P TTAC #### [facility] [id number] [address] [place] [address] [place] Erythrocyte distribution width (RBC) [Ratio] 22.2 % High 11.5-15.0 [facility] Comment on above: Order Comment: Speci men Type: BLOOD SPECIMEN Ordering Facility: [facility] Address: [address] [place] [address] Performed By: #### P TTAC #### [facility] [id number] [address] [place] [address] [place] Hematocrit (Bld) [Volume fraction] 29.6 % Low 39.0-51.0 [facility] Comment on above: Order Comment: Speci men Type: BLOOD SPECIMEN Ordering Facility: [facility] Address: [address] [place] [address] Performed By: #### P TTAC #### [facility] [id number] [address] [place] [address] [place] Hemoglobin (Bld) [Mass/Vol] 8.8 g/dL Low 13.0-17.0 [facility] Comment on above: Order Comment: Speci men Type: BLOOD SPECIMEN Ordering Facility: [facility] Address: [address] [place] [address] Performed By: #### P TTAC #### [facility] IA [id number] [address] [place] [address] [place] Immature granulocytes (Bld) [#/Vol] 0.03 10*3/uL Normal <0.10 [facility] Comment on above: Order Comment: Speci men Type: BLOOD SPECIMEN Ordering Facility: [facility] Address: [address] [place] [address] Performed By: #### P TTAC #### [facility] IA [id number] [address] [place] Immature granulocytes/100 WBC (Bld) 0.5 % Normal [facility] Comment on above: Order Comment: Speci men Type: BLOOD SPECIMEN Ordering Facility: [facility] Address: [address] [place] [address] Performed By: #### P TTAC #### [facility] [id number] [address] [place] [address] [place] Lymphocytes (Bld) [#/Vol] 1.05 10*3/uL Normal 1.00-4.00 [facility] Comment on above: Order Comment: Speci men Type: BLOOD SPECIMEN Ordering Facility: [facility] Address: [address] [place] [address] Performed By: #### P TTAC #### [facility] [id number] [address] [place] Lymphocytes/100 WBC (Bld) 16.1 % Normal [facility] Comment on above: Order Comment: Speci men Type: BLOOD SPECIMEN Ordering Facility: [facility] Address: [address] [place] [address] Performed By: #### P TTAC #### [facility] [id number] [address] [place] [address] [place] MCH (RBC) [Entitic mass] 30.0 pg Normal 26.0-34.0 [facility] Comment on above: Order Comment: Speci men Type: BLOOD SPECIMEN Ordering Facility: [facility] Address: [address] [place] [address] Performed By: #### P TTAC #### [facility] [place] [id number] [address] [place] MCHC (RBC) [Mass/Vol] 29.7 g/dL Low 30.5-36.0 [facility] Comment on above: Order Comment: Speci men Type: BLOOD SPECIMEN Ordering Facility: [facility] Address: [address] [place] [address] Performed By: #### P TTAC #### [facility] [place] [id number] [address] [place] [address] [place] MCV (RBC) [Entitic vol] 101.0 fL High 80.0-100.0 [facility] Comment on above: Order Comment: Speci men Type: BLOOD SPECIMEN Ordering Facility: [facility] Address: [address] [place] [address] Performed By: #### P TTAC #### [facility] [place] [id number] [address] [place] [address] [place] Monocytes (Bld) [#/Vol] 0.56 10*3/uL Normal <0.87 [facility] Comment on above: Order Comment: Speci men Type: BLOOD SPECIMEN Ordering Facility: [facility] Address: [address] [place] [address] Performed By: #### P TTAC #### [facility] [place] [id number] [address] [place] [id number] [place] Monocytes/100 WBC (Bld) 8.6 % Normal [facility] Comment on above: Order Comment: Speci men Type: BLOOD SPECIMEN Ordering Facility: [facility] Address: [address] [place] [address] Performed By: #### P TTAC #### [facility] [place] [id number] [address] [place] [address] [place] Neutrophils (Bld) [#/Vol] 4.77 10*3/uL Normal 1.45-7.50 [facility] Comment on above: Order Comment: Speci men Type: BLOOD SPECIMEN Ordering Facility: [facility] Address: [address] [place] [address] Performed By: #### P TTAC #### [facility] [place] [id number] [address] [place] [address] [place] Neutrophils/100 WBC (Bld) 73.1 % Normal [facility] Comment on above: Order Comment: Speci men Type: BLOOD SPECIMEN Ordering Facility: [facility] Address: [address] [place] [address] Performed By: #### P TTAC #### [facility] [place] [id number] [address] [place] [address] [place] Nucleated RBC (Bld) [#/Vol] 0.02 10*3/uL High <0.01 [facility] Comment on above: Order Comment: Speci men Type: BLOOD SPECIMEN Ordering Facility: [facility] Address: [address] [place] [address] Performed By: #### P TTAC #### [facility] [place] [id number] [address] [place] [address] [place] Nucleated RBC/100 WBC (Bld) [Ratio] 0.3 /100 WBC Normal [facility] Comment on above: Order Comment: Speci men Type: BLOOD SPECIMEN Ordering Facility: [facility] Address: [address] [place] [address] Performed By: #### P TTAC #### [facility] [place] [id number] [address] [place] [id number] [place] Platelet mean volume (Bld) [Entitic vol] 10.8 fL Normal 9.0-12.7 [facility] Comment on above: Order Comment: Speci men Type: BLOOD SPECIMEN Ordering Facility: [facility] Address: [address] [place] [address] Performed By: #### P TTAC #### [facility] IA [id number] [address] [place] [address] [place] Platelets (Bld) [#/Vol] 194 10*3/uL Normal 150-400 [facility] Comment on above: Order Comment: Speci men Type: BLOOD SPECIMEN Ordering Facility: [facility] Address: [address] [place] [address] Performed By: #### P TTAC #### [facility] CLIA [id number] [address] [place] [address] [place] RBC (Bld) [#/Vol] 2.93 10*6/uL Low 4.20-6.00 [facility] Comment on above: Order Comment: Speci men Type: BLOOD SPECIMEN Ordering Facility: [facility] Address: [address] [place] [address] Performed By: #### P TTAC #### [facility] CLIA [id number] [address] [place] [address] [place] WBC (Bld) [#/Vol] 6.52 10*3/uL Normal 3.70-11.00 [facility] Comment on above: Order Comment: Speci men Type: BLOOD SPECIMEN Ordering Facility: [facility] Address: [address] [place] [address] Performed By: #### P TTAC #### [facility] [place] [id number] [address] [place] [address] [place] CNPNon 05-06-2024 CNPN Normal [facility] metabolic 2000 panelon 05-06-2024 Albumin [Mass/Vol] 3.6 g/dL Low 3.9-4.9 [facility] Comment on above: Order Comment: Speci men Type: BLOOD SPECIMEN Ordering Facility: [facility] Address: [address] [place] [address] Performed By: #### 2 4323-8, 19324-5, 57879-1 #### [facility] [place] [id number] [address] [place] ALP [Catalytic activity/Vol] 92 U/L Normal 38-113 [facility] Comment on above: Order Comment: Speci men Type: BLOOD SPECIMEN Ordering Facility: [facility] Address: [address] [place] [address] [place] [address] Performed By: #### 2 4323-8, 72520-7, 86662-7 #### [facility] CLIA [id number] [address] [place] [address] [place] ALT [Catalytic activity/Vol] 12 U/L Normal 10-54 [facility] Comment on above: Order Comment: Speci men Type: BLOOD SPECIMEN Ordering Facility: [facility] Address: [address] [place] [address] Performed By: #### 2 4323-8, 11791-7, 86015-1 #### [facility] CLIA [id number] [address] [place] [address] [place] Anion gap [Moles/Vol] 13 mmol/L Normal 8-15 [facility] Comment on above: Order Comment: Speci men Type: BLOOD SPECIMEN Ordering Facility: [facility] Address: [address] [place] [address] Performed By: #### 2 4323-8, 61721-2, 83474-1 #### [facility] CLIA [id number] [address] [place] [address] [place] AST [Catalytic activity/Vol] 24 U/L Normal 14-40 [facility] Comment on above: Order Comment: Speci men Type: BLOOD SPECIMEN Ordering Facility: [facility] Address: [address] [place] [address] Performed By: #### 2 4323-8, 77432-7, 39562-3 #### [facility] CLIA [id number] [address] [place] [address] [place] Bilirubin [Mass/Vol] 0.8 mg/dL Normal 0.2-1.3 [facility] Comment on above: Order Comment: Speci men Type: BLOOD SPECIMEN Ordering Facility: [facility] Address: [address] [place] [address] Performed By: #### 2 4323-8, 48102-4, 43706-2 #### [facility] CLIA [id number] [address] [place] [address] [place] Calcium [Mass/Vol] 9.1 mg/dL Normal 8.5-10.2 [facility] Comment on above: Order Comment: Speci men Type: BLOOD SPECIMEN Ordering Facility: [facility] Address: [address] [place], [place] [address] Performed By: #### 2 4323-8, 15653-9, 73823-8 #### [facility] CLIA [id number] [address] [place] [address] [place] Chloride [Moles/Vol] 103 mmol/L Normal 98-107 [facility] Comment on above: Order Comment: Speci men Type: BLOOD SPECIMEN Ordering Facility: [facility] Address: [address] [place] [address] Performed By: #### 2 4323-8, 26451-9, 48871-1 #### [facility] CLIA [id number] [address] [place] [address] [place] CO2 [Moles/Vol] 24 mmol/L Normal 22-30 [facility] Comment on above: Order Comment: Speci men Type: BLOOD SPECIMEN Ordering Facility: [facility] Address: [address] [place] [address] Performed By: #### 2 4323-8, 53442-1, 90476-7 #### [facility] CLIA [id number] [address] [place] [address] [place] Creatinine [Mass/Vol] 2.07 mg/dL High 0.73-1.22 [facility] Comment on above: Order Comment: Speci men Type: BLOOD SPECIMEN Ordering Facility: [facility] Address: [address] [place], [place] [address] Performed By: #### 2 4323-8, 65489-7, 58242-0 #### [facility] CLIA [id number] [address] [place] [address] [place] Creatinine and Glomerular filtration rate.predicted panel (S/P/Bld) 31 mL/min/1.73m??? Low >=60 [facility] Comment on above: Order Comment: Dylan olvera Type: BLOOD SPECIMEN Ordering Facility: [facility] Address: [address] [place] [address] Result Comment: Etta mated Glomerular Filtration Rate [...] actual GFR. Performed By: #### 2 4323-8, 01116-1, 51637-5 #### [facility] CLIA [id number] [address] [place] [address] [place] Glucose [Mass/Vol] 105 mg/dL High 74-99 [facility] Comment on above: Order Comment: Dylan olvera Type: BLOOD SPECIMEN Ordering Facility: [facility] Address: [address] [place] [id number] Result Comment: The [place] [employer] (ADA) provides guidance for cutoff [...] Standards of Medical Care in Diabetes 2016, [place] [employer]. Diabetes Care. 2016.39(Suppl 1). Performed By: #### 2 4323-8, 63826-8, 02590-6 #### [facility] CLIA [id number] 34725 [facility] [place] [address] [place] Potassium [Moles/Vol] 4.1 mmol/L Normal 3.7-5.1 [facility] Comment on above: Order Comment: [facility] Type: BLOOD SPECIMEN Ordering Facility: [facility] Address: [address] [place] [address] Performed By: #### 2 4323-8, 30308-3, 17979-5 #### [facility] CLIA [id number] [address] [place] [address] [place] Protein [Mass/Vol] 6.2 g/dL Low 6.3-8.0 [facility] Comment on above: Order Comment: Speci men Type: BLOOD SPECIMEN Ordering Facility: [facility] Address: [address] [place], [place] [address] Performed By: #### 2 4323-8, 72604-1, 66141-5 #### [facility] CLIA [id number] [address] [place] [address] [place] Sodium [Moles/Vol] 140 mmol/L Normal 136-144 [facility] Comment on above: Order Comment: Speci men Type: BLOOD SPECIMEN Ordering Facility: [facility] Address: [address] [place], [place] [address] Performed By: #### 2 4323-8, 43569-0, 44342-4 #### [facility] CLIA [id number] [address] [place] [address] [place] Urea nitrogen [Mass/Vol] 40 mg/dL High 9-24 [facility] Comment on above: Order Comment: Speci men Type: BLOOD SPECIMEN Ordering Facility: [facility] Address: [address] [place], [place] [address] Performed By: #### 2 4323-8, 52203-6, 48295-1 #### [facility] CLIA [id number] [address] [place] [address] [place] ECG COMPLETEon 05-06-2024 ECG COMPLETE Ventricular Rate : 6 9 BPM Atrial Rate : 0 BPM QRS Duration : 126 ms Q-T Interval : 429 ms QTC Calculation(Bazett) : 460 ms Calculated R [place] : -14 degrees Calculated T [place] : 158 degrees Atrial fibrillation Paired ventricular premature complexes Nonspecific intraventricular conduction delay Repol abnrm suggests ischemia, lateral leads Abnormal ECG 182 NO STEMI Confirmed by DO OSWALD JOSEPH ([id number]), development editor MULU GARDUNO ([id number]) on 05/07/2024 8:20:07 AM NAME : JOSÉ MIGUEL ANTONIO PID : [id number] : 1940 Gender : Male Race : ORD : [id number] Procedure Date : May 06 2024 18:28:15 Edit Date : May 07 2024 08:20:08 Diagnosis: Atrial fibrillation Paired ventricular premature complexes Nonspecific intraventricular conduction delay Repol abnrm suggests ischemia, lateral leads Abnormal ECG 1829 NO STEMI Confirmed by DO OSWALD JOSEPH ([id number]), development editor MULU GARDUNO ([id number]) on 05/07/2024 8:20:07 AM Test Reason : Chest Pain Location : 302 : ED AVED-3 Overread By : DO OSWALD JOSEPH Edited By : MULU GARDUNO Referred By : , Acquired by : [id number], [facility] ED NOTEon 05-06-2024 ED NOTE HNO ID: [id number] Author: ENRRIQUE PARSONS RN Service: eHospital Author Type: Registered Nurse Type: ED Notes Filed: 05/06/2024 19:13 Note Text: Report given to INOCENTE Andrade. [facility] ED NOTE HNO ID: [id number] Author: RAYMOND PALMA RN Service: Emergency Medicine Author Type: Registered Nurse Type: ED Notes Filed: 05/06/2024 19:10 Note Text: Report taken from Enrrique Castellano RN [facility] ED NOTE HNO ID: [id number] Author: DEVKIA WILEY RN Service: ? Author Type: Registered Nurse Type: ED Notes Filed: 05/06/2024 16:42 Note Text: Patient presents with c/o SANTILLAN increasing x several weeks. 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 Patient very pale in triage, takes plavix, ASA, and xarelto. Denies CP, denies SOB at rest. VSS in triage, AANDOx4. [facility] ED PROV NOTEon 05-06-2024 ED PROV NOTE HNO ID: [id number] Author: JANET OSWALD DO Service: Emergency Medicine [...] disease) No date: Heart failure, acute systolic ([facility]) No date: Hypertension No date: Hypothyroid No date: Myocardial infarct, old No date: Occlusion and stenosis of carotid artery without mention of cerebral infarction 2020: Prostate cancer ([facility]) 11/17/2012: PVD (peripheral vascular disease) ([facility]) 09/03/2022: Stroke (cerebrum) ([facility]) No date: Systolic heart failure ([facility]) No date: Thyroid disorder 04/26/2023: 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 kidney disease, unspecified CKD stage, unspecified whether correction insulin use ([facility]) 04/28/2012: Ventricular tachycardia ([facility]) PAST SURGICAL HISTORY 2012: ANGIOGRAPHY, EXT [...] Disease Father - Heart Attack Father fatal [place] at age 77 - Ischemic Heart Disease Brother CABGx6 first at age 72 - No Known Problems Maternal Grandmother - No Known Problems Maternal Grandfather - No Known Problems Paternal Grandmother - No Known Problems Paternal Grandfather - No Known Problems Daughter - No Known Problems Daughter - No Known Problems Daughter - other (Other) Other paternal cousin at age 50 of [place] Social History Tobacco Use - Smoking status: [...] 40 (*) (more content not included)... Normal [facility] ED Triage Noteon 05-06-2024 ED Triage Note HNO ID: [id number] Author: JENNY ALARCON MD Service: Emergency Medicine [...] from bedside clinician. SIGNATURE: Jenny Alarcon MD [facility] HIGH SENSITIVITY TROPONIN T (INITIAL)on 05-06-2024 Troponin T.cardiac High sensitivity method [Mass/Vol] 45 ng/L High [address] Comment on above: Order Comment: Speci may Type: BLOOD SPECIMEN Ordering Facility: [facility] Address: [address] [place] [address] Performed By: #### L [id number] #### [facility] CLIA [id number] [address] [place] [address] [place] [facility] HIGH SENSITIVITY TROPONIN T (SECOND)on 05-06-2024 Troponin T.cardiac High sensitivity method [Mass/Vol] 43 ng/L High <[address] [place] [address] Comment on above: Order Comment: Specgregory olvera Type: BLOOD SPECIMEN Ordering Facility: [facility] Address: [address] [place] [address] Performed By: #### 3 4528-0, PTTAC #### [facility] CLIA [id number] [address] [place] [address] [place] [facility] HIGH SENSITIVITY TROPONIN T (THIRD) 3 HRS AFTER INITIALon 05-06-2024 Troponin T.cardiac High sensitivity method [Mass/Vol] 45 ng/L High <12 [facility] Comment on above: Order Comment: Speci men Type: BLOOD SPECIMEN Ordering Facility: [facility] Address: [address], [place] [address] Performed By: #### L [id number] #### [facility] CLIA [id number] [address] [place] [address] [place] HISTORY PHYSICALon HISTORY PHYSICAL HNO ID: [id number] Author: CHERYL LEES MD Service: Hospital Medicine Author Type: Physician Type: H&P Filed: 05/06/2024 23:41 Note Text: DEPARTMENT OF HOSPITAL MEDICINE HISTORY AND PHYSICAL EXAM SERVICE DATE: 05/06/2024 SERVICE TIME: 6:57 PM Primary Care Physician: Samm Thompson MD NIGHT AND WEEKEND COVERAGE: Days: [phone], please contact via [employer] Secure Message Nights: [phone] 3rd floor: please page [facility] Hospitalist night cover #[phone] 4W: please page [facility] night cover #[phone] 5th floor: please page [facility] night cover #[phone] SDU (18:00 - 19:00): Please page #[phone] SDU (19:00 - 07:00): Please call E-Hospitalist at [phone] Subjective CHIEF COMPLAINT: generalized weakness and SANTILLAN [...] weakness and SANTILLAN. 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 PAST MEDICAL HISTORY 09/03/2022: Carotid stenosis, asymptomatic, bilateral No date: Chronic back pain Comment: stenosis of the back 09/03/2022: Chronic 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) No date: Dyslipidemia No date: GERD (gastroesophageal reflux disease) No date: Heart failure, acute systolic ([facility]) No date: Hypertension No date: Hypothyroid No date: Myocardial infarct, old No date: Occlusion and stenosis of carotid artery without mention of cerebral infarction 2020: Prostate cancer ([facility]) 11/17/2012: PVD (peripheral vascular disease) ([facility]) 09/03/2022: Stroke (cerebrum) ([facility]) No date: Systolic heart failure ([facility]) No date: Thyroid disorder 04/26/2023: 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 kidney disease, unspecified CKD stage, unspecified whether correction insulin use ([facility]) 04/28/2012: Ventricular tachycardia ([facility]) PAST SURGICAL HISTORY 2012: ANGIOGRAPHY, EXT [...] Artery Disease Father Heart Attack Father fatal [place] at age 77 Ischemic Heart Disease Brother CABGx6 first at age 72 No Known Problems Maternal Grandmother No Known Problems Maternal Grandfather No Known Problems Paternal Grandmother No Known Problems Paternal Grandfather No Known Problems Daughter No Known Problems Daughter No Known Problems Daughter other (Other) Other paternal cousin at age 50 of [place] Social History Tobacco Use Smoking status: Former [...] succinate ER (more content not included)... Normal [facility] Magnesium [facility] 05-06 Magnesium [Mass/Vol] 2.5 mg/dL High 1.7-2.3 [facility] Comment on above: Order Comment: Dylan olvera Type: BLOOD SPECIMEN Ordering Facility: [facility] Address: [address] [place] [address] Performed By: #### 2 4323-8, 41549-7, 16228-8 #### [facility] CLIA [id number] [address] [facility] [address] [place] NT-proBNP [facility] 05-06 Natriuretic peptide.B prohormone N-Terminal [Mass/Vol] 76266 pg/mL High <450 [facility] Comment on above: Order Comment: Dylan olvera Type: BLOOD SPECIMEN Ordering Facility: [facility] Address: [address] [place] [address] Performed By: #### 2 4323-8, 25506-0, 80341-9 #### [facility] CLIA [id number] 23947 [facility] [place] [address] [place] XR CHEST 2V [...] New left pleural effusion with adjacent atelectasis Neonatal Intensive Care Nurse: PSCB Transcribe Date/Time: May 06 2024 5:37P Dictated by : ROSS FULTON DO This examination was interpreted and the report reviewed and electronically signed by: ROSS FULTON DO on May 06 2024 5:38PM EST [id number] Normal [facility] CNPTOUTREACHon 04-30-2024 CNPTOUTREACH Normal [facility] CNPTOUTREACHon 04-29-2024 CNPTOUTREA Normal [facility] CNCOon 04-14-2024 CNCO Letter Text Normal [facility] Basic metabolic 2000 panelon 04-06-2024 Anion gap [Moles/Vol] 7 mmol/L Low 04-30 [facility] Comment on above: Order Comment: Speci men Type: BLOOD SPECIMENOrdering Facility: [facility] Address: [address] [place] [address] Performed By: #### 2 4321-2 ####[facility] [id number] [place] [address] Calcium [Mass/Vol] 9.9 mg/dL Normal 8.5-10.2 [facility] Comment on above: Order Comment: Speci men Type: BLOOD SPECIMENOrdering Facility: [facility] Address: [address] [place] [address] Performed By: #### 2 4321-2 ####[facility] [id number] [place] [address] Chloride [Moles/Vol] 106 mmol/L Normal 98-107 [facility] Comment on above: Order Comment: Speci men Type: BLOOD SPECIMENOrdering Facility: [facility] Address: [address] [place] [address] Performed By: #### 2 4321-2 ####[facility] [id number] [place] [address] CO2 [Moles/Vol] 27 mmol/L Normal 22-30 [facility] Comment on above: Order Comment: Speci men Type: BLOOD SPECIMENOrdering Facility: [facility] Address: [address] [place] [address] Performed By: #### 2 4321-2 ####[facility] [id number] [place] [address] Creatinine [Mass/Vol] 2.02 mg/dL High 0.73-1.22 [facility] Comment on above: Order Comment: Speci men Type: BLOOD SPECIMENOrdering Facility: [facility] Address: [address] [place] [address] Performed By: #### 2 4321-2 ####[facility] [id number] [place] [address] Creatinine and Glomerular filtration rate.predicted panel (S/P/Bld) 32 mL/min/1.73m??? Low >=60 [facility] Comment on above: Order Comment: Speci men Type: BLOOD SPECIMENOrdering Facility: [facility] Address: [address] [place] [id number] Result Comment: Etta mated Glomerular Filtration Rate [...] actual GFR. Performed By: #### 2 4321-2 ####[facility] [id number] [place] [address] Glucose [Mass/Vol] 106 mg/dL High 74-99 [facility] Comment on above: Order Comment: Dylan olvera Type: BLOOD SPECIMENOrdering Facility: [facility] Address: [address] [place] [address] Result Comment: The [place] [employer] (ADA) provides guidance for cutoff [...] Standards of Medical Care in Diabetes 2016, [place] [employer]. Diabetes Care. 2016.39(Suppl 1). Performed By: #### 2 4321-2 ####[facility] LABCLIA [id number] [place] [address] Potassium [Moles/Vol] 4.6 mmol/L Normal 3.7-5.1 [facility] Comment on above: Order Comment: Dylan olvera Type: BLOOD SPECIMENOrdering Facility: [facility] Address: [address] [id number] Performed By: #### 2 4321-2 ####[facility] LABCLIA [id number] [place] [address] Sodium [Moles/Vol] 140 mmol/L Normal 136-144 [facility] Comment on above: Order Comment: Speci men Type: BLOOD SPECIMENOrdering Facility: [facility] Address: [address] [place] [address] Performed By: #### 2 4321-2 ####[facility] LABCLIA [id number] [place] [address] Urea nitrogen [Mass/Vol] 53 mg/dL High 9-24 [facility] Comment on above: Order Comment: Speci men Type: BLOOD SPECIMENOrdering Facility: [facility] Address: [address] [place] [address] Performed By: #### 2 4321-2 ####[facility] LABCLIA [id number] [place] [address] NT-proBNP [facility] 04-06 Natriuretic peptide.B prohormone N-Terminal [Mass/Vol] 84011 pg/mL High <450 [facility] Comment on above: Order Comment: Speci men Type: BLOOD SPECIMENOrdering Facility: [facility] Address: [address] [place] [address] Performed By: #### 3 3762-6 ####[facility] LABCLIA [id number] [facility] [address] [id number] [place] CNPNon 04-03-2024 CNPN Normal [facility] CNPNon 04-01-2024 CNPN Normal [facility] CNOVon 03-31-2024 CNOV Normal [facility] Basic metabolic 2000 panelon 03-30-2024 Anion gap [Moles/Vol] 12 mmol/L Normal 8-15 [facility] Comment on above: Order Comment: Speci men Type: BLOOD SPECIMENOrdering Facility: [facility] Address: [address] [place] [address] Performed By: #### 2 4321-2 ####[facility] LABCLIA [id number] [place] [address] [place] Calcium [Mass/Vol] 9.8 mg/dL Normal 8.5-10.2 [facility] Comment on above: Order Comment: Speci men Type: BLOOD SPECIMENOrdering Facility: [facility] Address: [address] [place] [address] Performed By: #### 2 4321-2 ####[facility] LABCLIA [id number] [place] [address] [place] Chloride [Moles/Vol] 103 mmol/L Normal 98-107 [facility] Comment on above: Order Comment: Speci men Type: BLOOD SPECIMENOrdering Facility: [facility] Address: [address] [place] [address] Performed By: #### 2 4321-2 ####[facility] LABCLIA [id number] [place] [address] [place] CO2 [Moles/Vol] 26 mmol/L Normal 22-30 [facility] Comment on above: Order Comment: Speci men Type: BLOOD SPECIMENOrdering Facility: [facility] Address: [address] [place] [address] Performed By: #### 2 4321-2 ####[facility] LABIA [id number] [place] [address] [place] Creatinine [Mass/Vol] 2.01 mg/dL High 0.73-1.22 [facility] Comment on above: Order Comment: Speci men Type: BLOOD SPECIMENOrdering Facility: [facility] Address: [address] [place] [address] Performed By: #### 2 4321-2 ####[facility] LABCLIA [id number] [place] [address] [place] Creatinine and Glomerular filtration rate.predicted panel (S/P/Bld) 33 mL/min/1.73m??? Low >=60 [facility] Comment on above: Order Comment: Dylan olvera Type: BLOOD SPECIMENOrdering Facility: [facility] Address: [address] [place] [address] Result Comment: Etta mated Glomerular Filtration Rate [...] actual GFR. Performed By: #### 2 4321-2 ####[facility] [id number] [place] [address] [place] Glucose [Mass/Vol] 93 mg/dL Normal 74-99 [facility] Comment on above: Order Comment: Dylan olvera Type: BLOOD SPECIMENOrdering Facility: [facility] Address: [address] [place] [address] Result Comment: The [place] Diabetes Association (ADA) provides guidance for cutoff [...] Standards of Medical Care in Diabetes 2016, [place] [employer]. Diabetes Care. 2016.39(Suppl 1). Performed By: #### 2 4321-2 ####[facility] [id number] [place] [address] [place] Potassium [Moles/Vol] 5.1 mmol/L Normal 3.7-5.1 [facility] Comment on above: Order Comment: Dylan olvera Type: BLOOD SPECIMENOrdering Facility: [facility] Address: [address] [place] [address] Performed By: #### 2 4321-2 ####[facility] LABCLIA [id number] [address] [address] [place] Sodium [Moles/Vol] 141 mmol/L Normal 136-144 [facility] Comment on above: Order Comment: Speci men Type: BLOOD SPECIMENOrdering Facility: [facility] Address: [address] [place] [address] Performed By: #### 2 4321-2 ####[facility] LABCLIA [id number] [address] [address] [place] Urea nitrogen [Mass/Vol] 29 mg/dL High 9-24 [facility] Comment on above: Order Comment: Speci men Type: BLOOD SPECIMENOrdering Facility: [facility] Address: [address] [place] [address] Performed By: #### 2 4321-2 ####[facility] LABCLIA [id number] [address] [address] [place] CNOVon 03-30-2024 CNOV Normal [facility] CNPNon 03-30-2024 CNPN Normal [facility] ECG COMPLETEon 03-30-2024 ECG COMPLETE Normal [facility] Basic metabolic 2000 panelon 03-24-2024 Anion gap [Moles/Vol] 9 mmol/L Normal 8-15 [facility] Comment on above: Order Comment: Speci men Type: BLOOD SPECIMENOrdering Facility: [facility] Address: [address] [place] [address] Performed By: #### 2 4321-2 ####[facility] LABCLIA [id number] [place] [address] Calcium [Mass/Vol] 10.0 mg/dL Normal 8.5-10.2 [facility] Comment on above: Order Comment: Speci men Type: BLOOD SPECIMENOrdering Facility: [facility] Address: [address] [place] [address] Performed By: #### 2 4321-2 ####[facility] LABCLIA [id number] [place] [address] Chloride [Moles/Vol] 104 mmol/L Normal 98-107 [facility] Comment on above: Order Comment: Speci men Type: BLOOD SPECIMENOrdering Facility: [facility] Address: [address] [place] [address] Performed By: #### 2 4321-2 ####[facility] LABCLIA [id number] [place] [address] CO2 [Moles/Vol] 28 mmol/L Normal 22-30 [facility] Comment on above: Order Comment: Speci men Type: BLOOD SPECIMENOrdering Facility: [facility] Address: [address] [place] [address] Performed By: #### 2 4321-2 ####[facility] LABCLIA [id number] [place] [address] Creatinine [Mass/Vol] 2.29 mg/dL High 0.73-1.22 [facility] Comment on above: Order Comment: Speci men Type: BLOOD SPECIMENOrdering Facility: [facility] Address: [address] [place] [address] Performed By: #### 2 4321-2 ####[facility] LABCLIA [id number] [place] [address] Creatinine and Glomerular filtration rate.predicted panel (S/P/Bld) 28 mL/min/1.73m??? Low >=60 [facility] Comment on above: Order Comment: Speci men Type: BLOOD SPECIMENOrdering Facility: [facility] Address: [address] [place] [address] Result Comment: Etta mated Glomerular Filtration Rate [...] actual GFR. Performed By: #### 2 4321-2 ####[facility] LABIA [id number] [place] [address] Glucose [Mass/Vol] 109 mg/dL High 74-99 [facility] Comment on above: Order Comment: Speci men Type: BLOOD SPECIMENOrdering Facility: [facility] Address: [address] [place], [place] [id number] Result Comment: The [place] Diabetes Association (ADA) provides guidance for cutoff [...] Standards of Medical Care in Diabetes 2016, [place] [employer]. Diabetes Care. 2016.39(Suppl 1). Performed By: #### 2 4321-2 ####[facility] LABIA [id number] [place] [address] Potassium [Moles/Vol] 4.7 mmol/L Normal 3.7-5.1 [facility] Comment on above: Order Comment: Speci men Type: BLOOD SPECIMENOrdering Facility: [facility] Address: [address] [place] [address] Performed By: #### 2 4321-2 ####[facility] LABIA [id number] [place] [address] Sodium [Moles/Vol] 141 mmol/L Normal 136-144 [facility] Comment on above: Order Comment: Speci men Type: BLOOD SPECIMENOrdering Facility: [facility] Address: [address] [place] [address] Performed By: #### 2 4321-2 ####[facility] LABCLIA [id number] [place] [address] Urea nitrogen [Mass/Vol] 31 mg/dL High 9-24 [facility] Comment on above: Order Comment: Speci men Type: BLOOD SPECIMENOrdering Facility: [facility] Address: [address] [place] [address] Performed By: #### 2 4321-2 ####[facility] LABCLIA [id number] [place] [address] CBC panel Auto (Bld)on 03-24 Erythrocyte distribution width (RBC) [Ratio] 18.8 % High 11.5-15.0 [facility] Comment on above: Order Comment: Speci men Type: BLOOD SPECIMENOrdering Facility: [facility] Address: [address] [place] [address] Performed By: #### 5 8410-2 ####[facility] LABCLIA [id number] [place] [address] Hematocrit (Bld) [Volume fraction] 37.7 % Low 39.0-51.0 [facility] Comment on above: Order Comment: Speci men Type: BLOOD SPECIMENOrdering Facility: [facility] Address: [address] [place] [address] Performed By: #### 5 8410-2 ####[facility] LABCLIA [id number] [place] [address] Hemoglobin (Bld) [Mass/Vol] 11.3 g/dL Low 13.0-17.0 [facility] Comment on above: Order Comment: Speci men Type: BLOOD SPECIMENOrdering Facility: [facility] Address: [address] [place] [address] Performed By: #### 5 8410-2 ####[facility] LABCLIA [id number] [place] [address] MCH (RBC) [Entitic mass] 27.6 pg Normal 26.0-34.0 [facility] Comment on above: Order Comment: Speci men Type: BLOOD SPECIMENOrdering Facility: [facility] Address: [address] [place] [address] Performed By: #### 5 8410-2 ####[facility] LABCLIA [id number] [place] [address] MCHC (RBC) [Mass/Vol] 30.0 g/dL Low 30.5-36.0 [facility] Comment on above: Order Comment: Speci men Type: BLOOD SPECIMENOrdering Facility: [facility] Address: [address] [place] [address] Performed By: #### 5 8410-2 ####[facility] LABIA [id number] [place] [address] MCV (RBC) [Entitic vol] 92.0 fL Normal 80.0-100.0 [facility] Comment on above: Order Comment: Speci men Type: BLOOD SPECIMENOrdering Facility: [facility] Address: [address] [place] [address] Performed By: #### 5 8410-2 ####[facility] LABIA [id number] [place] [address] Nucleated RBC (Bld) [#/Vol] 10*3/uL Normal <0.01 [facility] Comment on above: Order Comment: Speci men Type: BLOOD SPECIMENOrdering Facility: [facility] Address: [address] [place] [address] Performed By: #### 5 8410-2 ####[facility] LABIA [id number] [place] [address] Platelet mean volume (Bld) [Entitic vol] 9.4 fL Normal 9.0-12.7 [facility] Comment on above: Order Comment: Speci men Type: BLOOD SPECIMENOrdering Facility: [facility] Address: [address] [place] [address] Performed By: #### 5 8410-2 ####[facility] LABCLIA [id number] [place] [address] Platelets (Bld) [#/Vol] 162 10*3/uL Normal 150-400 [facility] Comment on above: Order Comment: Speci men Type: BLOOD SPECIMENOrdering Facility: [facility] Address: [address] [place] [address] Performed By: #### 5 8410-2 ####[facility] LABCLIA [id number] [place] [address] RBC (Bld) [#/Vol] 4.10 10*6/uL Low 4.20-6.00 [facility] Comment on above: Order Comment: Speci men Type: BLOOD SPECIMENOrdering Facility: [facility] Address: [address] [place] [address] Performed By: #### 5 8410-2 ####[facility] LABCLIA [id number] [place] [address] WBC (Bld) [#/Vol] 5.95 10*3/uL Normal 3.70-11.00 [facility] Comment on above: Order Comment: Speci men Type: BLOOD SPECIMENOrdering Facility: [facility] Address: [address] [place] [address] Performed By: #### 5 8410-2 ####[facility] LABCLIA [id number] [place] [address] PSA [facility] Prostate specific Ag [Mass/Vol] ng/mL Normal <2.60 [facility] Comment on above: Order Comment: Speci men Type: BLOOD SPECIMENOrdering Facility: [facility] Address: [address] [place] [address] Result Comment: Tota l PSA test methodology used is the Electrochemiluminescence Immunoassay by [employer]. Total PSA values by differing methodologies cannot be interchanged. Performed By: #### 2 857-1 ####[facility] LABCLIA [id number] [facility] [id number] [address] [place] TESTOSTERONE, FREE AND TOTAL on 03-24-2024 TESTOSTERONE, FREE, S 1.46 ng/dL Low 2.88-10.5 [facility] Comment on above: Order Comment: Speci men Type: BLOOD SPECIMENOrdering Facility: [facility] Address: [facility] [place] [address] Result Comment: ---- ADDITIONAL INFORMATION This test was developed and its performance characteristicsdetermined by [facility] in a manner consistent with CLIArequirements. This test has not been cleared or approved bythe U.S. Food and Drug Administration. Performed By: #### T FTEST ####[facility] LABCLIA [id number] [place] [address] TESTOSTERONE, TOTAL, S 80 ng/dL Low 240-950 [facility] Comment on above: Order Comment: Speci men Type: BLOOD SPECIMENOrdering Facility: [facility] Address: [facility] [address] Result Comment: ---- ADDITIONAL INFORMATION Testing performed by Liquid Chromatography-Tandem MassSpectrometry (LC-MS/MS).This test was developed and its performance characteristicsdetermined by [facility] in a manner consistent with CLIArequirements. This test has not been cleared or approved bythe U.S. Food and Drug Administration.Test Performed by:[facility] - [address] [address] Director: Bambi Singh Ph.D.; CLIA# [id number] Performed By: #### T FTEST ####[facility] LABCLIA [id number] [place] [address] CNPTOUTREACHon 03-06-2024 CNPTOUTREACH Normal [facility] CASE MANAGEMon 03-05-2024 CASE MANAGEM Normal [facility] CNDSon 03-05-2024 CNDS Normal [facility] NURSING PROGon 03-05-2024 NURSING PROG Normal [facility] US CAROTID LTon 03-05-2024 US CAROTID LT Normal [facility] ANES POSTPROC EVALon 024 ANES POSTPROC EVAL Normal [facility] ANES PRE-OPon 03-04-2024 ANES PRE-OP Normal [facility] ARTERIAL BLOOD GASES WITH IO NIZED MAGNESIUMon 03-04-2024 Base excess Calc (Bld) [Moles/Vol] 0 mmol/L Normal 0-2 [facility] Comment on above: Order Comment: Speci men Type: ARTERIAL BLOOD SPECIMENOrdering Facility: [facility] Address: [address] [place] [address] Performed By: #### A LLMG ####[facility] [id number] [place] [address] [place] Calcium.ionized (Bld) [Mass/Vol] 1.29 mmol/L Normal 1.08-1.30 [facility] Comment on above: Order Comment: Speci men Type: ARTERIAL BLOOD SPECIMENOrdering Facility: [facility] Address: [address] [place] [address] Performed By: #### A LLMG ####[facility] [id number] [place] [address] [place] Calcium.ionized adjusted to pH 7.4 (BldA) [Moles/Vol] 1.25 mmol/L Normal 1.08-1.30 [facility] Comment on above: Order Comment: Speci men Type: ARTERIAL BLOOD SPECIMENOrdering Facility: [facility] Address: [address] [place] [address] Performed By: #### A LLMG ####[facility] LABIA [id number] [place] [address] [place] Carboxyhemoglobin (BldA) [Mass fraction] 1.4 % Normal 0.0-2.0 [facility] Comment on above: Order Comment: Speci men Type: ARTERIAL BLOOD SPECIMENOrdering Facility: [facility] Address: [address] [place] [address] Result Comment: Carb oxyhemoglobin Reference Range for Smokers: 2.0-8.0% Performed By: #### A LLMG ####[facility] LABCLIA [id number] [place] [address] [place] CO2 (Bld) [Partial pressure] 49 mm Hg High 36-46 [facility] Comment on above: Order Comment: Speci men Type: ARTERIAL BLOOD SPECIMENOrdering Facility: [facility] Address: [address] [place] [address] Performed By: #### A LLMG ####[facility] LABCLIA [id number] [place] [address] [place] CO2 adjusted to patient's actual temperature (Bld) [Partial pressure] 49 mmHg High 36-46 [facility] Comment on above: Order Comment: Speci men Type: ARTERIAL BLOOD SPECIMENOrdering Facility: [facility] Address: [address] [place] [address] Performed By: #### A LLMG ####[facility] LABCLIA [id number] [place] [address] [place] Glucose [Mass/Vol] 105 mg/dL Normal 60-105 [facility] Comment on above: Order Comment: Speci men Type: ARTERIAL BLOOD SPECIMENOrdering Facility: [facility] Address: [address] [place] [address] Performed By: #### A LLMG ####[facility] LABCLIA [id number] [place] [address] [place] HCO3 (Bld) [Moles/Vol] 26 mmol/L Normal 22-26 [facility] Comment on above: Order Comment: Speci men Type: ARTERIAL BLOOD SPECIMENOrdering Facility: [facility] Address: [address] [place] [address] Performed By: #### A LLMG ####[facility] LABCLIA [id number] [place] [address] [place] Hematocrit (Bld) [Volume fraction] 36.8 % Low 39.0-51.0 [facility] Comment on above: Order Comment: Speci men Type: ARTERIAL BLOOD SPECIMENOrdering Facility: [facility] Address: [address] [place] [address] Performed By: #### A LLMG ####[facility] LABIA [id number] [place] [address] [place] Hemoglobin (Bld) [Mass/Vol] 11.9 g/dL Low 13.0-17.0 [facility] Comment on above: Order Comment: Speci men Type: ARTERIAL BLOOD SPECIMENOrdering Facility: [facility] Address: [address] [place] [address] Performed By: #### A LLMG ####[facility] LABIA [id number] [place] [address] [place] Lactate [Moles/Vol] 0.7 mmol/L Normal 0.5-2.2 [facility] Comment on above: Order Comment: Speci men Type: ARTERIAL BLOOD SPECIMENOrdering Facility: [facility] Address: [address] [place] [address] Performed By: #### A LLMG ####[facility] LABIA [id number] [place] [address] [place] Magnesium [Moles/Vol] 0.65 mmol/L High 0.45-0.60 [facility] Comment on above: Order Comment: Speci men Type: ARTERIAL BLOOD SPECIMENOrdering Facility: [facility] Address: [address] [place] [address] Performed By: #### A LLMG ####[facility] LABIA [id number] [place] [address] [place] Methemoglobin (Bld) [Mass fraction] 0.8 % Normal 0.0-1.5 [facility] Comment on above: Order Comment: Speci men Type: ARTERIAL BLOOD SPECIMENOrdering Facility: [facility] Address: [address] [place] [address] Performed By: #### A LLMG ####[facility] LABCLIA [id number] [place] [address] [place] Oxygen (Bld) [Partial pressure] 129 mm Hg High 85-95 [facility] Comment on above: Order Comment: Speci men Type: ARTERIAL BLOOD SPECIMENOrdering Facility: [facility] Address: [address] [place] [address] Performed By: #### A LLMG ####[facility] LABCLIA [id number] [place] [address] [place] Oxygen adjusted to patient's actual temperature (Bld) [Partial pressure] 129 mmHg High 85-95 [facility] Comment on above: Order Comment: Speci men Type: ARTERIAL BLOOD SPECIMENOrdering Facility: [facility] Address: [address] [place] [address] Performed By: #### A LLMG ####[facility] LABCLIA [id number] [place] [address] [place] Oxyhemoglobin (BldA) [Mass fraction] 97 % Normal 95-98 [facility] Comment on above: Order Comment: Speci men Type: ARTERIAL BLOOD SPECIMENOrdering Facility: [facility] Address: [address] [place] [address] Performed By: #### A LLMG ####[facility] LABCLIA [id number] [place] [address] [place] pH (Bld) 7.34 [pH] Low 7.35-7.45 [facility] Comment on above: Order Comment: Speci men Type: ARTERIAL BLOOD SPECIMENOrdering Facility: [facility] Address: [address] [place] [address] Performed By: #### A LLMG ####[facility] LABCLIA [id number] [place] [address] [place] pH adjusted to patient's actual temperature (Bld) 7.34 Low 7.35-7.45 [facility] Comment on above: Order Comment: Speci men Type: ARTERIAL BLOOD SPECIMENOrdering Facility: [facility] Address: [address] [place] [address] Performed By: #### A LLMG ####[facility] LABIA [id number] [place] [address] [place] Potassium [Moles/Vol] 3.9 mmol/L Normal 3.5-5.0 [facility] Comment on above: Order Comment: Speci men Type: ARTERIAL BLOOD SPECIMENOrdering Facility: [facility] Address: [address] [place] [address] Performed By: #### A LLMG ####[facility] [id number] [place] [address] [place] Sodium [Moles/Vol] 137 mmol/L Normal 136-144 [facility] Comment on above: Order Comment: Speci men Type: ARTERIAL BLOOD SPECIMENOrdering Facility: [facility] Address: [address] [place] [address] Performed By: #### A LLMG ####[facility] LABIA [id number] [place] [address] [place] ASPIRIN/CLOPIDOGREL RESISTAN CEon 03-04-2024 Platelet aggregation ADP induced High dose (PRP) [Rel units/Vol] 17 % Max Low 65-93 [facility] Comment on above: Order Comment: Speci men Type: BLOOD SPECIMENOrdering Facility: [facility] Address: [address] [place] [address] Performed By: #### A SPCLP ####[facility] [id number] [place] [address] [place] Platelet aggregation arachidonate induced 500 ug/mL (PRP) [Rel units/Vol] 22 % Max Low 75-100 [facility] Comment on above: Order Comment: Speci men Type: BLOOD SPECIMENOrdering Facility: [facility] Address: [address] [place] [address] Performed By: #### A SPC ####[facility] LABIA [id number] [place] [address] [place] BRIEF OP NOTon 03-04-2024 BRIEF OP NOT Normal [facility] CASE MANAGEMon 03-04-2024 CASE MANAGEM Normal [facility] CBC panel Auto (Bld)on 03-04 Erythrocyte distribution width (RBC) [Ratio] 18.7 % High 11.5-15.0 [facility] Comment on above: Order Comment: Speci men Type: BLOOD SPECIMENOrdering Facility: [facility] Address: [address] [place] [address] Performed By: #### 5 8410-2 ####[facility] LABIA [id number] [place] [address] [place] Hematocrit (Bld) [Volume fraction] 39.7 % Normal 39.0-51.0 [facility] Comment on above: Order Comment: Speci men Type: BLOOD SPECIMENOrdering Facility: [facility] Address: [address] [place] [address] Performed By: #### 5 8410-2 ####[facility] LABIA [id number] [place] [address] [place] Hemoglobin (Bld) [Mass/Vol] 12.3 g/dL Low 13.0-17.0 [facility] Comment on above: Order Comment: Speci men Type: BLOOD SPECIMENOrdering Facility: [facility] Address: [address] [place] [address] Performed By: #### 5 8410-2 ####[facility] LABIA [id number] [place] [address] [place] MCH (RBC) [Entitic mass] 27.5 pg Normal 26.0-34.0 [facility] Comment on above: Order Comment: Speci men Type: BLOOD SPECIMENOrdering Facility: [facility] Address: [address] [place] [address] Performed By: #### 5 8410-2 ####[facility] LABCLIA [id number] [place] [address] [place] MCHC (RBC) [Mass/Vol] 31.0 g/dL Normal 30.5-36.0 [facility] Comment on above: Order Comment: Speci men Type: BLOOD SPECIMENOrdering Facility: [facility] Address: [address] [place] [address] Performed By: #### 5 8410-2 ####[facility] LABCLIA [id number] [place] [address] [place] MCV (RBC) [Entitic vol] 88.8 fL Normal 80.0-100.0 [facility] Comment on above: Order Comment: Speci men Type: BLOOD SPECIMENOrdering Facility: [facility] Address: [address] [place] [address] Performed By: #### 5 8410-2 ####[facility] LABIA [id number] [place] [address] [place] Nucleated RBC (Bld) [#/Vol] 10*3/uL Normal <0.01 [facility] Comment on above: Order Comment: Speci men Type: BLOOD SPECIMENOrdering Facility: [facility] Address: [address] [place] [address] Performed By: #### 5 8410-2 ####[facility] LABCLIA [id number] [place] [address] [place] Platelet mean volume (Bld) [Entitic vol] 10.1 fL Normal 9.0-12.7 [facility] Comment on above: Order Comment: Speci men Type: BLOOD SPECIMENOrdering Facility: [facility] Address: [address] [place] [address] Performed By: #### 5 8410-2 ####[facility] LABCLIA [id number] [place] [address] [place] Platelets (Bld) [#/Vol] 168 10*3/uL Normal 150-400 [facility] Comment on above: Order Comment: Speci men Type: BLOOD SPECIMENOrdering Facility: [facility] Address: [address] [place] [address] Performed By: #### 5 8410-2 ####[facility] LABIA [id number] [place] [address] [place] RBC (Bld) [#/Vol] 4.47 10*6/uL Normal 4.20-6.00 [facility] Comment on above: Order Comment: Speci men Type: BLOOD SPECIMENOrdering Facility: [facility] Address: [address] [place] [address] Performed By: #### 5 8410-2 ####[facility] LABIA [id number] [place] [address] [place] WBC (Bld) [#/Vol] 5.30 10*3/uL Normal 3.70-11.00 [facility] Comment on above: Order Comment: Speci men Type: BLOOD SPECIMENOrdering Facility: [facility] Address: [address] [place] [address] Performed By: #### 5 8410-2 ####[facility] LABCLIA [id number] [place] [address] [place] IR CAROTIDon 03-04-2024 IR CAROTID Normal [facility] IR CAROTID CERVICALon 2023 IR CAROTID CERVICAL Normal [facility] IR NEUROVASCULAR STENTon IR NEUROVASCULAR STENT Normal [facility] MRI BRAIN WO IVCONon 06-19-2 024 MRI BRAIN WO IVCON Normal [facility] NURSING PROGon 03-04-2024 NURSING PROG Normal [facility] Renal function 2000 panelon 03-04-2024 Albumin [Mass/Vol] 3.3 g/dL Low 3.9-4.9 [facility] Comment on above: Order Comment: Speci men Type: BLOOD SPECIMENOrdering Facility: [facility] Address: [address] [place] [address] Performed By: #### 2 4362-6 ####[facility] LABCLIA [id number] [place] [address] [place] Anion gap [Moles/Vol] 13 mmol/L Normal 8-15 [facility] Comment on above: Order Comment: Speci men Type: BLOOD SPECIMENOrdering Facility: [facility] Address: [address] [place] [address] Performed By: #### 2 4362-6 ####[facility] LABCLIA [id number] [place] [address] [place] Calcium [Mass/Vol] 9.6 mg/dL Normal 8.5-10.2 [facility] Comment on above: Order Comment: Speci men Type: BLOOD SPECIMENOrdering Facility: [facility] Address: [address] [place] [address] Performed By: #### 2 4362-6 ####[facility] LABCLIA [id number] [place] [address] [place] Chloride [Moles/Vol] 101 mmol/L Normal 98-107 [facility] Comment on above: Order Comment: Speci men Type: BLOOD SPECIMENOrdering Facility: [facility] Address: [address] [place] [address] Performed By: #### 2 4362-6 ####[facility] LABCLIA [id number] [place] [address] [place] CO2 [Moles/Vol] 23 mmol/L Normal 22-30 [facility] Comment on above: Order Comment: Speci men Type: BLOOD SPECIMENOrdering Facility: [facility] Address: [address] [place] [address] Performed By: #### 2 4362-6 ####[facility] LABCLIA [id number] [place] [address] [place] Creatinine [Mass/Vol] 1.91 mg/dL High 0.73-1.22 [facility] Comment on above: Order Comment: Speci men Type: BLOOD SPECIMENOrdering Facility: [facility] Address: [address] [place] [address] Performed By: #### 2 4362-6 ####[facility] LABIA [id number] [place] [address] [place] Creatinine and Glomerular filtration rate.predicted panel (S/P/Bld) 35 mL/min/1.73m??? Low >=60 [facility] Comment on above: Order Comment: Speci men Type: BLOOD SPECIMENOrdering Facility: [facility] Address: [address] [place] [address] Result Comment: Etta mated Glomerular Filtration Rate [...] actual GFR. Performed By: #### 2 4362-6 ####[facility] LABIA [id number] [place] [address] [place] Glucose [Mass/Vol] 84 mg/dL Normal 74-99 [facility] Comment on above: Order Comment: Speci men Type: BLOOD SPECIMENOrdering Facility: [facility] Address: [address] [place] [address] Result Comment: The [place] [employer] (ADA) provides guidance for cutoff [...] Standards of Medical Care in Diabetes 2016, [place] [employer]. Diabetes Care. 2016.39(Suppl 1). Performed By: #### 2 4362-6 ####[facility] LABIA [id number] [place] [address] [place] Phosphate [Mass/Vol] 3.9 mg/dL Normal 2.7-4.8 [facility] Comment on above: Order Comment: Speci men Type: BLOOD SPECIMENOrdering Facility: [facility] Address: [address] [place] [address] Performed By: #### 2 4362-6 ####[facility] LABIA [id number] [place] [address] [place] Potassium [Moles/Vol] 4.0 mmol/L Normal 3.7-5.1 [facility] Comment on above: Order Comment: Rozi may Type: BLOOD SPECIMENOrdering Facility: [facility] Address: [address] [place] [address] Performed By: #### 2 4362-6 ####[facility] LABIA [id number] [place] [id number] [place] Sodium [Moles/Vol] 137 mmol/L Normal 136-144 [facility] Comment on above: Order Comment: Speci men Type: BLOOD SPECIMENOrdering Facility: [facility] Address: [address] [place] [address] Performed By: #### 2 4362-6 ####[facility] LABIA [id number] [address] [address] [place] Urea nitrogen [Mass/Vol] 27 mg/dL High 9-24 [facility] Comment on above: Order Comment: Speci men Type: BLOOD SPECIMENOrdering Facility: [facility] Address: [address] [place] [address] Performed By: #### 2 4362-6 ####[facility] LABCLIA [id number] [place] [address] [place] ALLIED HEALTHon 03-03-2024 ALLIED HEALTH HNO ID: [id number] Author: FERMIN MIGUEL Chaplain Service: Spiritual Care Author Type: [employer] Type: Allied Health Filed: 03/03/2024 10:38 Note Text: Accepted anoint.,bless. Normal [facility] CASE MANAGEMon 03-03-2024 CASE MANAGEM Normal [facility] CBC panel Auto (Bld)on 03-03 Erythrocyte distribution width (RBC) [Ratio] 18.6 % High 11.5-15.0 [facility] Comment on above: Order Comment: Speci men Type: BLOOD SPECIMENOrdering Facility: [facility] Address: [address] [place] [address] Performed By: #### 5 8410-2 ####[facility] LABIA [id number] [address] [place] Hematocrit (Bld) [Volume fraction] 39.3 % Normal 39.0-51.0 [facility] Comment on above: Order Comment: Speci men Type: BLOOD SPECIMENOrdering Facility: [facility] Address: [address] [place] [address] Performed By: #### 5 8410-2 ####[facility] LABIA [id number] [place] [address] [place] Hemoglobin (Bld) [Mass/Vol] 12.3 g/dL Low 13.0-17.0 [facility] Comment on above: Order Comment: Speci men Type: BLOOD SPECIMENOrdering Facility: [facility] Address: [address] [place] [address] Performed By: #### 5 8410-2 ####[facility] LABIA [id number] [place] [address] [place] MCH (RBC) [Entitic mass] 27.5 pg Normal 26.0-34.0 [facility] Comment on above: Order Comment: Speci men Type: BLOOD SPECIMENOrdering Facility: [facility] Address: [address] [place] [address] Performed By: #### 5 8410-2 ####[facility] LABIA [id number] [place] [address] [place] MCHC (RBC) [Mass/Vol] 31.3 g/dL Normal 30.5-36.0 [facility] Comment on above: Order Comment: Speci men Type: BLOOD SPECIMENOrdering Facility: [facility] Address: [address] [place] [address] Performed By: #### 5 8410-2 ####[facility] LABIA [id number] [place] [address] [place] MCV (RBC) [Entitic vol] 87.7 fL Normal 80.0-100.0 [facility] Comment on above: Order Comment: Speci men Type: BLOOD SPECIMENOrdering Facility: [facility] Address: [address] [place] [address] Performed By: #### 5 8410-2 ####[facility] LABIA [id number] [place] [address] [place] Nucleated RBC (Bld) [#/Vol] 10*3/uL Normal <0.01 [facility] Comment on above: Order Comment: Speci men Type: BLOOD SPECIMENOrdering Facility: [facility] Address: [address] [place] [address] Performed By: #### 5 8410-2 ####[facility] LABIA [id number] [place] [address] [place] Platelet mean volume (Bld) [Entitic vol] 10.3 fL Normal 9.0-12.7 [facility] Comment on above: Order Comment: Speci men Type: BLOOD SPECIMENOrdering Facility: [facility] Address: [address] [place] [address] Performed By: #### 5 8410-2 ####[facility] LABIA [id number] [place] [address] [place] Platelets (Bld) [#/Vol] 174 10*3/uL Normal 150-400 [facility] Comment on above: Order Comment: Speci men Type: BLOOD SPECIMENOrdering Facility: [facility] Address: [address] [place] [address] Performed By: #### 5 8410-2 ####[facility] [id number] [place] [address] [place] RBC (Bld) [#/Vol] 4.48 10*6/uL Normal 4.20-6.00 [facility] Comment on above: Order Comment: Speci men Type: BLOOD SPECIMENOrdering Facility: [facility] Address: [address] [place] [address] Performed By: #### 5 8410-2 ####[facility] [id number] [place] [address] [place] WBC (Bld) [#/Vol] 5.79 10*3/uL Normal 3.70-11.00 [facility] Comment on above: Order Comment: Speci men Type: BLOOD SPECIMENOrdering Facility: [facility] Address: [address] [place] [address] Performed By: #### 5 8410-2 ####[facility] LABIA [id number] [place] [address] [place] Fact Xa PPP-aCncon 4 Coagulation factor X activated act Coag Qn (PPP) 0.31 IU/mL High <0.10 [facility] Comment on above: Order Comment: Dylan olvera Type: BLOOD SPECIMENOrdering Facility: [facility] Address: [address] [place] [address] Result Comment: The recommended therapeutic range for treatment of venous and arterial thrombosis with intravenous unfractionated heparin is an anti Xa activity level of 0.3 to 0.7 IU/mL. In patients with concomitant therapy with thrombolytic agents and/or platelet glycoprotein IIb/IIIa antagonists, the recommended therapeutic range is an anti Xa activity level of 0.2 to 0.5 IU/mL. Performed By: #### P TTAC, 3217-7 ####[facility] [id number] [place] [address] [place] Magnesium SerPl-mCncon 03-03 Magnesium [Mass/Vol] 2.3 mg/dL Normal 1.7-2.3 [facility] Comment on above: Order Comment: Dylan olvera Type: BLOOD SPECIMENOrdering Facility: [facility] Address: [address] [place] [address] Performed By: #### 1 9123-9, 44712-7 ####[facility] [id number] [place] [address] [place] PTT, ANTICOAGULANT THERAPYon 03-03-2024 aPTT Coag (PPP) [Time] 57.8 s High 23.0-32.4 [facility] Comment on above: Order Comment: Dylan olvera Type: BLOOD SPECIMENOrdering Facility: [facility] Address: [address] [place] [address] Performed By: #### P TTAC, 3217-7 ####[facility] [id number] [place] [address] [place] aPTT Coag (PPP) [Time] 37.1 s High 23.0-32.4 [facility] Comment on above: Order Comment: Dylan olvera Type: BLOOD SPECIMENOrdering Facility: [facility] Address: [address] [place] [address] Performed By: #### P [facility] ####[facility] LABCLIA [id number] [place] [address] [place] Renal function 2000 panelon 03-03-2024 Albumin [Mass/Vol] 3.3 g/dL Low 3.9-4.9 [facility] Comment on above: Order Comment: Speci men Type: BLOOD SPECIMENOrdering Facility: [facility] Address: [address] [place] [address] Performed By: #### 1 9123-9, 79992-3 ####[facility] LABIA [id number] [place] [address] [place] Anion gap [Moles/Vol] 10 mmol/L Normal 8-15 [facility] Comment on above: Order Comment: Speci men Type: BLOOD SPECIMENOrdering Facility: [facility] Address: [address] [place] [address] Performed By: #### 1 9123-9, 10175-3 ####[facility] LABIA [id number] [place] [address] [place] Calcium [Mass/Vol] 9.6 mg/dL Normal 8.5-10.2 [facility] Comment on above: Order Comment: Speci men Type: BLOOD SPECIMENOrdering Facility: [facility] Address: [address] [place] [address] Performed By: #### 1 9123-9, 01768-8 ####[facility] LABCLIA [id number] [place] [id number] [place] Chloride [Moles/Vol] 103 mmol/L Normal 98-107 [facility] Comment on above: Order Comment: Speci men Type: BLOOD SPECIMENOrdering Facility: [facility] Address: [address] [place] [address] Performed By: #### 1 9123-9, 95423-6 ####[facility] LABCLIA [id number] [place] [address] [place] CO2 [Moles/Vol] 25 mmol/L Normal 22-30 [facility] Comment on above: Order Comment: Speci men Type: BLOOD SPECIMENOrdering Facility: [facility] Address: [address] [place] [address] Performed By: #### 1 9123-9, 78614-9 ####[facility] LABIA [id number] [place] [address] [place] Creatinine [Mass/Vol] 1.93 mg/dL High 0.73-1.22 [facility] Comment on above: Order Comment: Speci men Type: BLOOD SPECIMENOrdering Facility: [facility] Address: [address] [place] [address] Performed By: #### 1 9123-9, 10205-6 ####[facility] [id number] [place] [address] [place] Creatinine and Glomerular filtration rate.predicted panel (S/P/Bld) 34 mL/min/1.73m??? Low >=60 [facility] Comment on above: Order Comment: Speci men Type: BLOOD SPECIMENOrdering Facility: [facility] Address: [address] [place] [address] Result Comment: Etta mated Glomerular Filtration Rate [...] actual GFR. Performed By: #### 1 9123-9, 65241-3 ####[facility] LABCLIA [id number] [place] [address] [place] Glucose [Mass/Vol] 91 mg/dL Normal 74-99 [facility] Comment on above: Order Comment: Speci men Type: BLOOD SPECIMENOrdering Facility: [facility] Address: [address] [place] [address] Result Comment: The [place] [employer] (ADA) provides guidance for cutoff [...] Standards of Medical Care in Diabetes 2016, [place] [employer]. Diabetes Care. 2016.39(Suppl 1). Performed By: #### 1 9123-9, 93213-4 ####[facility] LABCLIA [id number] [place] [address] [place] Phosphate [Mass/Vol] 3.6 mg/dL Normal 2.7-4.8 [facility] Comment on above: Order Comment: Dylan olvera Type: BLOOD SPECIMENOrdering Facility: [facility] Address: [address] [place] [address] Performed By: #### 1 9123-9, 43634-2 ####[facility] LABCLIA [id number] [place] [address] [place] Potassium [Moles/Vol] 4.4 mmol/L Normal 3.7-5.1 [facility] Comment on above: Order Comment: Dylan olvera Type: BLOOD SPECIMENOrdering Facility: [facility] Address: [address] [place] [address] Performed By: #### 1 9123-9, 88355-0 ####[facility] LABCLIA [id number] [place] [id number] [place] Sodium [Moles/Vol] 138 mmol/L Normal 136-144 [facility] Comment on above: Order Comment: Speci men Type: BLOOD SPECIMENOrdering Facility: [facility] Address: [address] [place] [address] Performed By: #### 1 9123-9, 00727-7 ####[facility] LABCLIA [id number] [address] [address] [place] Urea nitrogen [Mass/Vol] 22 mg/dL Normal 9-24 [facility] Comment on above: Order Comment: Speci men Type: BLOOD SPECIMENOrdering Facility: [facility] Address: [address] [place] [address] Performed By: #### 1 9123-9, 21901-6 ####[facility] LABCLIA [id number] [place] [address] [place] TYPE + SCREENon 03-03-2024 ABO O Normal [facility] Comment on above: Order Comment: Speci men Type: BLOOD SPECIMENOrdering Facility: [facility] Address: [address] [place] [address] Performed By: #### T SCR ####[facility] BLOOD BANKCLIA [id number] [place] [address] [place] HISTORICAL AB SCR STATUS Negative Normal [facility] Comment on above: Order Comment: Speci men Type: BLOOD SPECIMENOrdering Facility: [facility] Address: [address] [place] [address] Performed By: #### T SCR ####[facility] BLO[facility] BANKCLIA [id number] [place] [id number] [place] Rh Nom (Bld) Positive Normal [facility] Comment on above: Order Comment: Speci men Type: BLOOD SPECIMENOrdering Facility: [facility] Address: [address] [place] [address] Performed By: #### T SCR ####[facility] BLO[facility] BANKCLIA [id number] [place] [address] [place] TYPE AND SCREEN EXPIRATION 03/06/2024 23:59 Normal [facility] Comment on above: Order Comment: Speci men Type: BLOOD SPECIMENOrdering Facility: [facility] Address: [address] [place] [address] Performed By: #### T SCR ####[facility] BLOOD BANKCLIA [id number] [place] [address] [place] VISUAL FIELD 24-2 OU (BOTH E YES)on 03-02-2024 [facility] Radiology Study observation (narrative) [facility] BASIC METABOLIC PANLon 03-01 Anion gap [Moles/Vol] 8 mmol/L Normal 5-15 [facility] Comment on above: Performed By: #### C BCA, PINR, 22676-9, CMP #### [facility] ([id number]) [address] [place] [address] Calcium [Mass/Vol] 9.2 mg/dL Normal 8.5-10.5 [facility] Comment on above: Performed By: #### C BCA, PINR, 22725-0, CMP #### [facility] ([id number]) [address] [place] [address] Chloride [Moles/Vol] 104 mmol/L Normal 98-109 [facility] Comment on above: Performed By: #### C BCA, PINR, 42930-8, CMP #### [facility] ([id number]) [address] [place] [address] CO2 [Moles/Vol] 25 mmol/L Normal 22-32 [facility] Comment on above: Performed By: #### C BCA, PINR, 58159-0, CMP #### [facility] ([id number]) [address] [place] [address] Creatinine [Mass/Vol] 1.76 mg/dL High 0.70-1.20 [facility] Comment on above: Result Comment: METH OD TRACEABLE TO IDMS STANDARD Performed By: #### C BCA, PINR, 67171-6, CMP #### [facility] ([id number]) [address] [place] [address] GFR/1.73 sq M.predicted among non-blacks MDRD (S/P/Bld) [Vol rate/Area] 38 mL/min/{1.73_m2} Low >59 [facility] Comment on above: Result Comment: Reported eGFR is based on the CKD-EPI 2020 equation that does not use a race coefficient. Performed By: #### C RODO, PINR, 00200-1, CMP #### [facility] ([id number]) [address] [place] [address] Glucose [Mass/Vol] 94 mg/dL Normal 65-99 [facility] Comment on above: Performed By: #### C RODO, PINR, 30215-7, CMP #### [facility] ([id number]) [address] [place] [address] Potassium [Moles/Vol] 3.6 mmol/L Normal 3.5-5.0 [facility] Comment on above: Performed By: #### C RODO, PINR, 14316-8, CMP #### [facility] ([id number]) [address] [place] [address] 21973 Sodium [Moles/Vol] 137 mmol/L Normal 134-146 [facility] Comment on above: Performed By: #### C BCA, PINR, 36048-5, CMP #### [facility] ([id number]) [address] [place] [address] 47365 Urea nitrogen [Mass/Vol] 23 mg/dL Normal 5-27 [facility] Comment on above: Performed By: #### C BCA, PINR, 62397-9, CMP #### [facility] ([id number]) [address] [place] [address] [id number] COMPLETE BLOOD COUNTon 06-16 -2024 Erythrocyte distribution width (RBC) [Ratio] 19.6 % High 11.5-15.0 [facility] Comment on above: Performed By: #### KATHERINE Cunningham BCA, 27498-0, CMP #### [facility] ([id number]) [address] [place] [address] [id number] Hematocrit (Bld) [Volume fraction] 35.8 % Low 39-49 [facility] [facility] Comment on above: Performed By: #### C PHILLIP KOEHLERR, 62737-2, CMP #### [facility] ([id number]) [address] [place] [address] 76077 Hemoglobin (Bld) [Mass/Vol] 11.7 g/dL Low 13.0-17.0 [facility] Comment on above: Performed By: #### PHILLIP Cunningham BCAR, 26488-0, CMP #### [facility] ([id number]) [address] [place] [address] 29021 MCH (RBC) [Entitic mass] 27.6 pg Normal 27-34 [facility] Comment on above: Performed By: #### PHILLIP Cunningham BCAR, 79778-4, CMP #### [facility] ([id number]) [address] [place] [address] 25905 MCHC (RBC) [Mass/Vol] 32.6 g/dL Normal 32-36 [facility] Comment on above: Performed By: #### Marisa KOEHLER PINR, 51428-2, CMP #### [facility] ([id number]) [address] [place] [address] 18801 MCV (RBC) [Entitic vol] 85 fL Normal 80-100 [facility] Comment on above: Performed By: #### PHILLIP Cunningham BCAR, 78027-5, CMP #### [facility] ([id number]) [address] [place] [address] 58197 Platelet mean volume (Bld) [Entitic vol] 8.4 fL Normal 7-12 [facility] Comment on above: Performed By: #### PHILLIP Cunningham BCAR, 74736-7, CMP #### [facility] ([id number]) [address] [place] [address] 10943 Platelets (Bld) [#/Vol] 190 10*3/uL Normal 150-450 [facility] Comment on above: Performed By: #### C RODO, PINR, 75756-6, CMP #### [facility] ([id number]) [address] [place] [address] 14461 RBC COUNT 4.23 X10E12/L Normal 4.10-5.70 [facility] Comment on above: Performed By: #### C RODO PINR, 13248-0, CMP #### [facility] ([id number]) [address] [place] [address] 87155 WBC (Bld) [#/Vol] 5.5 10*3/uL Normal 4.0-11.0 [facility] Comment on above: Performed By: #### Marisa KOEHLER, PHILLIPR, 73060-6, CMP #### [facility] ([id number]) [address] [place] [address] 50635 aPTT Coag (PPP) [Time]on aPTT Coag (Bld) [Time] 60 s High 26-37 [facility] Comment on above: Result Comment: NEW REFERENCE RANGE Performed By: #### 1 4979-9 ####[facility] ([id number])[address] [place] [address] 92593 HEMOGLOBINon 02-29-2024 Hemoglobin (Bld) [Mass/Vol] 11.6 g/dL Low 13.0-17.0 [facility] Comment on above: Performed By: #### 7 18-7, PLTCT ####[facility] ([id number])[address] [place] [address] 11735 PLATELET COUNT AND MPVon Platelet mean volume (Bld) [Entitic vol] 8.3 fL Normal 03-27 [facility] Comment on above: Performed By: #### 7 18-7, PLTCT ####[facility] ([id number])[address] [place] [address] 88128 Platelets (Bld) [#/Vol] 199 10*3/uL Normal 150-450 [facility] Comment on above: Performed By: #### 7 18-7, PLTCT ####[facility] ([id number])[address] [place] [address] 34496 aPTT Coag (PPP) [Time]on aPTT Coag (Bld) [Time] 64 s High 26-37 [facility] Comment on above: Result Comment: NEW REFERENCE RANGE Performed By: #### 1 4979-9 ####[facility] ([id number])[address] [place] [address] 24594 HEMOGLOBINon 02-28-2024 Hemoglobin (Bld) [Mass/Vol] 11.6 g/dL Low 13.0-17.0 [facility] Comment on above: Performed By: #### 7 -7, PLTCT ####[facility] ([id number])[address] [place] [address] 18606 PLATELET COUNT AND MPVon Platelet mean volume (Bld) [Entitic vol] 8.0 fL Normal 03-27 [facility] Comment on above: Performed By: #### 7 18-7, PLTCT ####[facility] ([id number])[address] [place] [address] 31240 Platelets (Bld) [#/Vol] 195 10*3/uL Normal 150-450 [facility] Comment on above: Performed By: #### 7 18-7, PLTCT ####[facility] ([id number])[address] [place] [address], [place] [address] aPTT Coag (PPP) [Time]on aPTT Coag (Bld) [Time] 64 s High [address] [place] [address] Comment on above: Result Comment: NEW REFERENCE RANGE Performed By: #### 1 4979-9 ####[facility] ([id number])[address] [place] [address] [place] [address] aPTT Coag (Bld) [Time] 77 s High [address] [place] [address] Comment on above: Result Comment: NEW REFERENCE RANGE Performed By: #### 1 4979-9 ####[facility] ([id number])[address] [place] [address] [place] [address] aPTT Coag (Bld) [Time] 91 s High [address] [place] [address] Comment on above: Result Comment: NEW REFERENCE RANGE Performed By: #### 1 4979-9 ####[facility] ([id number])[address] [place] [address] [place] [address] aPTT Coag (Bld) [Time] 113 s Critically high [address] [place] [address] Comment on above: Result Comment: NEW REFERENCE RANGE Performed By: #### 1 4979-9 ####[facility] ([id number])[address] [place] [address] [place] [address] aPTT Coag (PPP) [Time]on aPTT Coag (Bld) [Time] s Critically high [address] [place] [address] Comment on above: Result Comment: NEW REFERENCE RANGE Performed By: #### 1 4979-9 #### [facility] ([id number]) [address] [place] [address] [place] [address] aPTT Coag (Bld) [Time] s Critically high [address] [place] [address] Comment on above: Result Comment: NEW REFERENCE RANGE Performed By: #### 1 4979-9 #### [facility] ([id number]) [address] [place] [address] 16843 CBC AND AUTO DIFFon 02-26-20 24 ABSOLUTE BASOPHIL 0.0 X10E9/L Normal 0.0-0.2 [facility] Comment on above: Performed By: #### C RODO, PINR, 91727-4, CMP #### [facility] ([id number]) [address] [place] [address] 27635 ABSOLUTE NEUTROPHIL 4.9 X10E9/L Normal 1.5-6.6 [facility] Comment on above: Performed By: #### C BCA, PINR, 58203-5, CMP #### [facility] ([id number]) [address] [place] [address] 04527 Basophils/100 WBC (Bld) 0.6 % Normal [facility] Comment on above: Performed By: #### Marisa KOEHLER, PINR, 56626-3, CMP #### [facility] ([id number]) [address] [place] [address] 07725 Eosinophils (Bld) [#/Vol] 0.2 10*3/uL Normal 0.0-0.4 [facility] Comment on above: Performed By: #### Marisa BCA, PINR, 42123-0, CMP #### [facility] ([id number]) [address] [place] [address] 79620 Eosinophils/100 WBC (Bld) 3.3 % Normal [facility] Comment on above: Performed By: #### Marisa BCA, PINR, 15145-5, CMP #### [facility] ([id number]) [address] [place] [address] 33603 Erythrocyte distribution width (RBC) [Ratio] 18.9 % High 11.5-15.0 [facility] Comment on above: Performed By: #### C RODO PINR, 19494-4, CMP #### [facility] ([id number]) [address] [place] [address] 07003 Hematocrit (Bld) [Volume fraction] 37.2 % Low 39-49 [facility] Comment on above: Performed By: #### Marisa KOEHLER PINR, 28108-4, CMP #### [facility] ([id number]) [address] [place] [address] 11867 Hemoglobin (Bld) [Mass/Vol] 12.3 g/dL Low 13.0-17.0 [facility] Comment on above: Performed By: #### Marisa KOEHLER PINR, 16878-2, CMP #### [facility] ([id number]) [address] [place] [address] 02081 Lymphocytes (Bld) [#/Vol] 1.5 10*3/uL Normal 1.0-3.5 [facility] Comment on above: Performed By: #### Marisa KOEHLER PINR, 65084-1, CMP #### [facility] ([id number]) [address] [place] [address] 01894 Lymphocytes/100 WBC (Bld) 19.5 % Normal [facility] Comment on above: Performed By: #### Marisa KOEHLER PINR, 76545-8, CMP #### [facility] ([id number]) [address] [place] [address] 14720 MCH (RBC) [Entitic mass] 27.7 pg Normal 27-34 [facility] Comment on above: Performed By: #### Marisa KOEHLER PINR, 39445-9, CMP #### [facility] ([id number]) [address] [place] [address] 89549 MCHC (RBC) [Mass/Vol] 33.1 g/dL Normal 32-36 [facility] Comment on above: Performed By: #### C BCA, PINR, 43087-3, CMP #### [facility] ([id number]) [address] [place] [address] 73655 MCV (RBC) [Entitic vol] 84 fL Normal 80-100 [facility] Comment on above: Performed By: #### C BCA, PINR, 39887-7, CMP #### [facility] ([id number]) [address] [place] [address] 69972 Monocytes (Bld) [#/Vol] 0.8 10*3/uL Normal 0-0.9 [facility] Comment on above: Performed By: #### C RODO, PINR, 66034-3, CMP #### [facility] ([id number]) [address] [place] [address] 71759 Monocytes/100 WBC (Bld) 10.5 % Normal [facility] Comment on above: Performed By: #### C BCA, PINR, 05203-7, CMP #### [facility] ([id number]) [address] [place] [address] 21822 Neutrophils/100 WBC (Bld) 66.1 % Normal [facility] Comment on above: Performed By: #### C RODO, PINR, 92171-0, CMP #### [facility] ([id number]) [address] [place] [address] 98245 Platelet mean volume (Bld) [Entitic vol] 8.0 fL Normal 7-12 [facility] Comment on above: Performed By: #### C RODO, PINR, 34767-9, CMP #### [facility] ([id number]) [address] [place] [address] 83572 Platelets (Bld) [#/Vol] 228 10*3/uL Normal 150-450 [facility] Comment on above: Performed By: #### Marisa BCA, PINR, 98400-4, CMP #### [facility] ([id number]) [address] [place] [address] 35204 RBC COUNT 4.45 X10E12/L Normal 4.10-5.70 [facility] Comment on above: Performed By: #### C BCA, PINR, 17670-1, CMP #### [facility] ([id number]) [address] [place] [address] 58516 WBC (Bld) [#/Vol] 7.5 10*3/uL Normal 4.0-11.0 [facility] Comment on above: Performed By: #### C BCA, PINR, 81211-3, CMP #### [facility] ([id number]) [address] [place] [address] 42053 COMPREHENSIVE METABOLIC PANE [facility] 02-26-2024 Albumin [Mass/Vol] 3.4 g/dL Normal 3.2-5.3 [facility] Comment on above: Performed By: #### C BCA, PINR, 11048-1, CMP #### [facility] ([id number]) [address] [place] [address] 75620 ALP [Catalytic activity/Vol] 88 U/L Normal 39-130 [facility] Comment on above: Performed By: #### C BCA, PINR, 09405-8, CMP #### [facility] ([id number]) [address] [place] [address] 67880 ALT [Catalytic activity/Vol] 18 U/L Normal 0-40 [facility] Comment on above: Performed By: #### C BCA, PINR, 95784-2, CMP #### [facility] ([id number]) [address] [place] [address] 10792 Anion gap [Moles/Vol] 9 mmol/L Normal 5-15 [facility] Comment on above: Performed By: #### C BCA, PINR, 08032-7, CMP #### [facility] ([id number]) [address] [place] [address] 91758 AST [Catalytic activity/Vol] 26 U/L Normal 0-41 [facility] Comment on above: Performed By: #### C BCA, PINR, 90028-8, CMP #### [facility] ([id number]) [address] [place] [address] 71445 Bilirubin [Mass/Vol] 1.2 mg/dL Normal 0.3-1.2 [facility] Comment on above: Performed By: #### C BCA, PINR, 28994-6, CMP #### [facility] ([id number]) [address] [place] [address] 35368 Calcium [Mass/Vol] 9.1 mg/dL Normal 8.5-10.5 [facility] Comment on above: Performed By: #### C BCA, PINR, 88139-0, CMP #### [facility] ([id number]) [address] [place] [address] 19235 Chloride [Moles/Vol] 101 mmol/L Normal 98-109 [facility] Comment on above: Performed By: #### C BCA, PINR, 67815-1, CMP #### [facility] ([id number]) [address] [place] [address] 26279 CO2 [Moles/Vol] 25 mmol/L Normal 22-32 [facility] Comment on above: Performed By: #### C BCA, PINR, 12953-0, CMP #### [facility] ([id number]) [address] [place] [address] 89732 Creatinine [Mass/Vol] 2.08 mg/dL High 0.70-1.20 [facility] Comment on above: Result Comment: METH OD TRACEABLE TO IDMS STANDARD Performed By: #### C BCA, PINR, 24656-1, CMP #### [facility] ([id number]) [address] [place] [address] 84099 GFR/1.73 sq M.predicted among non-blacks MDRD (S/P/Bld) [Vol rate/Area] 31 mL/min/{1.73_m2} Low >59 [facility] Comment on above: Result Comment: Reported eGFR is based on the CKD-EPI 2020 equation that does not use a race coefficient. Performed By: #### C RODO PINR, 91565-0, CMP #### [facility] ([id number]) [address] [place] [address] 23102 Glucose [Mass/Vol] 122 mg/dL High 65-99 [facility] Comment on above: Performed By: #### C RODO PINR, 66604-5, CMP #### [facility] ([id number]) [address] [place] [address] 86739 Potassium [Moles/Vol] 3.8 mmol/L Normal 3.5-5.0 [facility] Comment on above: Performed By: #### C RODO PINR, 16035-7, CMP #### [facility] ([id number]) [address] [place] [address] 42449 Protein [Mass/Vol] 7.3 g/dL Normal 6.0-8.0 [facility] Comment on above: Performed By: #### C RODO PINR, 70968-4, CMP #### [facility] ([id number]) [address] [place] [address] 39157 Sodium [Moles/Vol] 135 mmol/L Normal 134-146 [facility] Comment on above: Performed By: #### C RODO PINR, 64241-8, CMP #### [facility] ([id number]) [address] [place] [address] 36289 Urea nitrogen [Mass/Vol] 29 mg/dL High 5-27 [facility] Comment on above: Performed By: #### C RODO, PINR, 47456-9, [facility] #### [facility] ([id number]) [address] [place] [address], [place] [address] CT BRAIN WO CONT STROKE ALER Ton [...] Khoury MD on 02/26/2024 11:09 PM Normal [facility] CT CTA CAROTIDon 02-26-2024 CT CTA [...] Automated exposure control was utilized. The [place] Symptomatic Carotid Endarterectomy Trial (NASCET)calculation of ICA [...] Khoury MD on 02/26/2024 11:38 PM Normal [facility] CT CTA HEADon 02-26-2024 CT CTA [...] Engel MD on 02/26/2024 11:29 PM Normal [facility] Glucose Glucometer (BldC) [M ass/Vol]on 02-26-2024 Glucose [Mass/Vol] 112 mg/dL High 65-99 [facility] PROTIME AND INRon 02-26-2024 INR Coag (PPP) [Relative time] 2.1 {INR} High 0.8-1.1 [facility] Comment on above: Performed By: #### C KATHERINE KOEHLER, 31035-9, CMP #### [facility] ([id number]) [address] [place] [address], [place] [address] PT Coag (PPP) [Time] 23.9 s High 9.8-13.2 [facility] Comment on above: Result Comment: NEW REFERENCE RANGE Performed By: #### C BCA, PINR, 88861-2, CMP #### [facility] ([id number]) [address] [place] [address] aPTT Coag (PPP) [Time]on aPTT Coag (Bld) [Time] 39 s High 26-37 [facility] Comment on above: Result Comment: NEW REFERENCE RANGE Performed By: #### C BCA, PINR, 49921-4, CMP #### [facility] ([id number]) [address] [place] [address] Basic metabolic 2000 panelon 02-05-2024 Anion gap [Moles/Vol] 16 mmol/L 9 - 18 mmol/L [facility] Calcium [Mass/Vol] 9.6 mg/dL 8.5 - 10. 2 mg/dL [facility] Chloride [Moles/Vol] 95 mmol/L Low 97 - 105 mmol/L [facility] CO2 [Moles/Vol] 24 mmol/L 22 - 30 mmol/L [facility] Creatinine [Mass/Vol] 2.50 mg/dL High 0.73 - 1.22 mg/dL [facility] GFR/1.73 sq M.predicted among non-blacks MDRD (S/P/Bld) [Vol rate/Area] 25 mL/min/{1.73_m2} Low - PINF [facility] Comment on above: Estimated Glomerular Filtration [...] 103 mg/dL High 74 - 99 mg/dL [facility] Comment on above: The [place] [employer] Association (ADA) provides guidance for [...] Standards of Medical Care in Diabetes 2016, [place] [employer]. Diabetes Care. 2016.39(Suppl 1). Potassium [Moles/Vol] 3.5 mmol/L Low 3.7 - 5.1 mmol/L [facility] Sodium [Moles/Vol] 135 mmol/L Low 136 - 144 mmol/L [facility] Urea nitrogen [Mass/Vol] 43 mg/dL High 9 - 24 mg/dL [facility] CBC W Auto Differential pane l (Bld)on 02-05-2024 Basophils (Bld) [#/Vol] 0.04 10*3/[facility]L [facility] Basophils/100 WBC (Bld) 0.5 % [facility] Differential cell count method Nom (Bld) Auto [facility] Eosinophils (Bld) [#/Vol] 0.41 10*3/uL [facility] Eosinophils/100 WBC (Bld) 5.5 % [facility] Erythrocyte distribution width (RBC) [Ratio] 16.2 % High 11.5 - 15.0 % [facility] Hematocrit (Bld) [Volume fraction] 40.2 % 39.0 - 51.0 % [facility] Hemoglobin (Bld) [Mass/Vol] 12.4 g/dL Low 13.0 - 17.0 g/dL [facility] Immature granulocytes (Bld) [#/Vol] 0.04 10*3/[facility]L [facility] Immature granulocytes/100 WBC (Bld) 0.5 % [facility] Interpretation and review of laboratory results Abnormal [facility] Lymphocytes (Bld) [#/Vol] 1.20 10*3/uL [facility] Lymphocytes/100 WBC (Bld) 16.0 % [facility] MCH (RBC) [Entitic mass] 27.0 pg 26.0 - 34.0 pg [facility] MCHC (RBC) [Mass/Vol] 30.8 g/dL 30.5 - 36.0 g/dL [facility] MCV (RBC) [Entitic vol] 87.6 fL 80.0 - 100.0 fL [facility] Monocytes (Bld) [#/Vol] 0.82 10*3/uL NINF [facility] Monocytes/100 WBC (Bld) 10.9 % [facility] Neutrophils (Bld) [#/Vol] 5.00 10*3/uL [facility] Neutrophils/100 WBC (Bld) 66.6 % [facility] Nucleated RBC (Bld) [#/Vol] NINF [facility] Nucleated RBC/100 WBC (Bld) [Ratio] 0.0 % /100 WBC [facility] Platelet mean volume (Bld) [Entitic vol] 10.4 fL 9.0 - 12.7 fL [facility] Platelets (Bld) [#/Vol] 224 10*3/uL [facility] RBC (Bld) [#/Vol] 4.59 10*6/uL 4.20 - 6.0 0 m/uL [facility] WBC (Bld) [#/Vol] 7.51 10*3/uL [facility] NT PRO BNPon 02-05-2024 Natriuretic peptide.B prohormone N-Terminal [Mass/Vol] 97850 pg/mL High NINF - 450 pg/mL [facility] No Panel Informationon 02-04 Interpretation and review of laboratory results Abnormal [facility] Comprehensive metabolic 2000 panelon 01-10-2024 Albumin [Mass/Vol] 3.7 g/dL Low 3.9 - 4.9 g/dL [facility] ALP [Catalytic activity/Vol] 109 U/L 38 - 113 U/L [facility] ALT [Catalytic activity/Vol] 10 U/L 10 - 54 U/L [facility] Anion gap [Moles/Vol] 14 mmol/L 9 - 18 mmol/L [facility] AST [Catalytic activity/Vol] 20 U/L 14 - 40 U/L [facility] Bilirubin [Mass/Vol] 1.1 mg/dL 0.2 - 1.3 mg/dL [facility] Calcium [Mass/Vol] 9.8 mg/dL 8.5 - 10. 2 mg/dL [facility] Chloride [Moles/Vol] 95 mmol/L Low 97 - 105 mmol/L [facility] CO2 [Moles/Vol] 25 mmol/L 22 - 30 mmol/L [facility] Creatinine [Mass/Vol] 2.50 mg/dL High 0.73 - 1.22 mg/dL [facility] GFR/1.73 sq M.predicted among non-blacks MDRD (S/P/Bld) [Vol rate/Area] 25 mL/min/{1.73_m2} Low - PINF [facility] Comment on above: Estimated Glomerular Filtration [...] 105 mg/dL High 74 - 99 mg/dL [facility] Comment on above: The [place] [employer] (ADA) provides guidance for [...] Standards of Medical Care in Diabetes 2016, [place] [employer]. Diabetes Care. 2016.39(Suppl 1). Potassium [Moles/Vol] 3.9 mmol/L 3.7 - 5.1 mmol/L [facility] Protein [Mass/Vol] 7.2 g/dL 6.3 - 8.0 g/dL [facility] Sodium [Moles/Vol] 134 mmol/L Low 136 - 144 mmol/L [facility] Urea nitrogen [Mass/Vol] 44 mg/dL High 9 - 24 mg/dL [facility] NT PRO BNPon 01-10-2024 Natriuretic peptide.B prohormone N-Terminal [Mass/Vol] 43029 pg/mL High NINF - 450 pg/mL [facility] No Panel Informationon 01-09 Interpretation and review of laboratory results Abnormal [facility] Follow-Upon 12-25-2023 Follow-Up Normal [facility] ICD REMOTE CHECKon AV Delay Adaptive Paced Minimum (ms) 200 ms [facility] AV Delay Adaptive Sensed Minimum (ms) 170 ms [facility] Bj RA Pacing Amplitude (volts) 2.0 V [facility] Bj RA Pacing Polarity BI [facility] Bj RA Pacing Pulse Width (ms) 0.5 ms [facility] Bj RA Sensing Amplitude (mvolts) 0.25 mV [facility] Bj RA Sensing Polarity BI [facility] Bj RV Pacing Amplitude (volts) 2.0 V [facility] Bj RV Pacing Polarity BI [facility] Bj RV Pacing Pulse Width (ms) 0.5 ms [facility] Bj RV Sensing Amplitude (mvolts) 0.3 mV [facility] Bj RV Sensing Polarity BI [facility] Detection Configuration (Vent) 2 - Zone [facility] FastVT_Detection Interval 250 ms [facility] FastVT_Therapy Configuration 1 ATP(s) + 8 Shock(s) [facility] ICD FastVT DetectionStatus ENABLED [facility] ICD-AMS EPISODES 170 {beats}/min [facility] ICD-ATP Episodes (Vent) 1 [facility] ICD-ATRIALFIBRILLAT ION 9 [facility] ICD-ATRIALTACHYCARD IA 9 [facility] ICD-ATRIALTACHYCARD IA 2 [facility] ICD-ATRIALTACHYCARD IA 1 [facility] ICD-Device Mfg BSX [facility] ICD-Fast Ventricular Tachycardia 2 [facility] ICD-Fast Ventricular Tachycardia 1 [facility] ICD-Fast Ventricular Tachycardia 0 [facility] ICD-LEADIMPEDANCEAT RIAL 767 ohm [facility] ICD-Percent Pacing (Atrial) 0 % [facility] ICD-Percent Pacing (Vent) 0 % [facility] ICD-Shocks Aborted (Vent) 0 [facility] IIO-CMUCIT-[id number] D 0 [facility] ICD-SHOCKSABORTED 0 [facility] ICD-SHOCKSDELIVERED VENTRICULAR 0 [facility] ICD-Ventricular Fibrillation 0 [facility] Lead Impedance (RV) 437 ohm [facility] Lead Impedance High Voltage 51 ohm [facility] Lead1 Mfg BSX [facility] Lead2 Mfg BSX [facility] Location RV [facility] Location RA [facility] Lower Rate (bpm) 50 {beats}/min [facility] Max Sensor Rate (bpm) 130 {beats}/min [facility] MDT_PROG_TACHY_ZONE _DETECTIONS_STATUS ENABLED [facility] Model D142 INOGEN [facility] Model [address] [place] [address] [facility] Model 7741 Ingevity MRI [facility] Pacing Mode DDDR [facility] Serial Number [id number] [facility] Serial Number [id number] [facility] Serial Number [id number] [facility] Test Charge Energy 23 J [facility] Test Charge Time 10.3 s [facility] Therapy Status (Vent) Enabled [facility] Thresh RA Capture Amplitude (volts) 0.9 V [facility] Thresh RA Capture Duration (ms) 0.5 ms [facility] Thresh RV Capture Amplitude (VOLTS) 0.4 V [facility] Thresh RV Capture Duration (MS) 0.5 ms [facility] Tracking Rate (bpm) 130 {beats}/min [facility] VF Zone Detection Interval 250 ms [facility] VF Zone Therapy Configuration 1 ATP(s) + 8 Shock(s) [facility] No Panel Informationon 12-22 BLANK _ [facility] ICD-ATRIALTACHYCARD IA 0 [facility] Implant Date 03/24/2019 [facility] NT PRO BNPon 12-13-2023 Natriuretic peptide.B prohormone N-Terminal [Mass/Vol] 07282 pg/mL High <450 pg/mL [facility] ICD REMOTE CHECKon AV Delay Adaptive Paced Minimum (ms) 200 ms [facility] AV Delay Adaptive Sensed Minimum (ms) 170 ms [facility] Bj RA Pacing Amplitude (volts) 2.0 V [facility] Bj RA Pacing Polarity BI [facility] Bj RA Pacing Pulse Width (ms) 0.5 ms [facility] Bj RA Sensing Amplitude (mvolts) 0.25 mV [facility] Bj RA Sensing Polarity BI [facility] Bj RV Pacing Amplitude (volts) 2.0 V [facility] Bj RV Pacing Polarity BI [facility] Bj RV Pacing Pulse Width (ms) 0.5 ms [facility] Bj RV Sensing Amplitude (mvolts) 0.3 mV [facility] Bj RV Sensing Polarity BI [facility] Detection Configuration (Vent) 2 - Zone [facility] FastVT_Detection Interval 250 ms [facility] FastVT_Therapy Configuration 1 ATP(s) + 8 Shock(s) [facility] ICD FastVT DetectionStatus ENABLED [facility] ICD-AMS EPISODES 170 {beats}/min [facility] ICD-ATP Episodes (Vent) 0 [facility] ICD-ATRIALFIBRILLAT ION 7 [facility] ICD-ATRIALTACHYCARD IA 7 [facility] ICD-ATRIALTACHYCARD IA 2 [facility] ICD-Device Mfg BSX [facility] ICD-Fast Ventricular Tachycardia 2 [facility] ICD-LEADIMPEDANCEAT RIAL 827 ohm [facility] ICD-Percent Pacing (Atrial) 0 % [facility] ICD-Percent Pacing (Vent) 0 % [facility] ICD-Shocks Aborted (Vent) 0 [facility] [id number] D 0 [facility] ICD-SHOCKSABORTED 0 [facility] ICD-SHOCKSDELIVERED VENTRICULAR 0 [facility] ICD-Ventricular Fibrillation 0 [facility] Lead Impedance (RV) 468 ohm [facility] Lead Impedance High Voltage 60 ohm [facility] Lead1 Mfg BSX [facility] Lead2 Mfg BSX [facility] Location RV [facility] Location RA [facility] Lower Rate (bpm) 50 {beats}/min [facility] Max Sensor Rate (bpm) 130 {beats}/min [facility] MDT_PROG_TACHY_ZONE _DETECTIONS_STATUS ENABLED [facility] Model D142 INOGEN [facility] Model [address] [place] [address] [facility] Model 7741 Ingevity MRI [facility] Pacing Mode DDDR [facility] Serial Number [id number] [facility] Serial Number [id number] [facility] Serial Number [id number] [facility] Test Charge Energy 23 J [facility] Test Charge Time 10.3 s [facility] Therapy Status (Vent) Enabled [facility] Thresh RA Capture Amplitude (volts) 0.9 V [facility] Thresh RA Capture Duration (ms) 0.5 ms [facility] Thresh RV Capture Amplitude (VOLTS) 0.4 V [facility] Thresh RV Capture Duration (MS) 0.5 ms [facility] Tracking Rate (bpm) 130 {beats}/min [facility] VF Zone Detection Interval 250 ms [facility] VF Zone Therapy Configuration 1 ATP(s) + 8 Shock(s) [facility] No Panel Informationon 12-03 BLANK _ [facility] ICD-ATRIALTACHYCARD IA 0 [facility] ICD-Fast Ventricular Tachycardia 0 [facility] Implant Date 03/24/2019 [facility] 36on 11-26-2023 36 DC to home on 024 Spoke to pt on 11/26/23 Med rec completed with pt Pt aware of follow up appt in [place] on 12/02/23, pt has transportation Normal [facility] BASIC METABOLIC PANELon 11-14 Anion gap [Moles/Vol] 15 mmol/L Normal 7-20 [facility] Comment on above: Performed By: #### L [id number] ####[facility] (BEAKER)[address] [facility] [place] [address] Calcium [Mass/Vol] 9.7 mg/dL Normal 8.6-10.3 [facility] Comment on above: Performed By: #### L [id number] ####[facility] (BEAKER)[address] [place] [address] Chloride [Moles/Vol] 98 mmol/L Normal 98-107 [facility] Comment on above: Performed By: #### L [id number] ####[facility] (BEAKER)[address] [place] [address] CO2 [Moles/Vol] 26 mmol/L Normal 21-31 [facility] Comment on above: Performed By: #### L [id number] ####[facility] (BEAKER)[address] [facility] [place] [facility] [place] [address] Creatinine [Mass/Vol] 2.09 mg/dL High 0.70-1.30 [facility] Comment on above: Performed By: #### L [id number] ####[facility] (BEAKER)[address] [facility] [place] [place] [address] GLOMERULAR FILTRATION RATE ML/MIN/1.73 SQ M.PREDICTED 31.2 mL/min/1.73m*2 Low >60.0 [facility] Comment on above: Result Comment: The [facility]???s estimated glomerular filtration rate (eGFR) will no [...] of individuals. Performed By: #### L [id number] ####[facility] ([facility])[address] [place] [address] Glucose [Mass/Vol] 86 mg/dL Normal 70-100 [facility] Comment on above: Performed By: #### L [id number] ####[facility] ([facility])[address] [place] [address] Potassium [Moles/Vol] 3.7 mmol/L Normal 3.5-5.1 [facility] Comment on above: Performed By: #### L [id number] ####[facility] ([facility])[address] [place] [address] Sodium [Moles/Vol] 135 mmol/L Low 136-145 [facility] Comment on above: Performed By: #### L [id number] ####[facility] ([facility])[address] [place] [address] Urea nitrogen [Mass/Vol] 53 mg/dL High 7-25 [facility] Comment on above: Performed By: #### L [id number] ####[facility] ([facility])[address] [facility] [place] [facility] [place] [address] UREA NITROGEN/CREATININE (MASS RATIO) IN SER/PLAS 25.4 Normal [facility] Comment on above: Performed By: #### L [id number] ####[facility] ([facility])[address] [facility] [place] [facility] [place] [address] CBC WITH AUTO DIFFERENTIALon 11-25-2023 Basophils (Bld) [#/Vol] 0.05 10*3/uL Normal 0.00-0.20 [facility] Comment on above: Performed By: #### L [id number] ####[facility] (BEAKER)[address] [place] [address] Basophils/100 WBC (Bld) 0.6 % Normal 0.0-1.0 [facility] Comment on above: Performed By: #### L [id number] ####[facility] (BEAKER)[address] [place] [address] Eosinophils (Bld) [#/Vol] 0.24 10*3/uL Normal 0.00-0.50 [facility] Comment on above: Performed By: #### L [id number] ####[facility] (BEAKER)[address] [place] [address] Eosinophils/100 WBC (Bld) 2.8 % Normal 0.0-6.0 [facility] Comment on above: Performed By: #### L [id number] ####[facility] (BEAKER)[address] [place] [address] Erythrocyte distribution width (RBC) [Ratio] 14.5 % Normal 11.5-15.0 [facility] Comment on above: Performed By: #### L [id number] ####[facility] (BEAKER)[address] [place] [address] ERYTHROCYTE MEAN CORPUSCULAR HEMOGLOBIN CONCENTRATION (G/DL) BY AUTOMATED 32.1 g/dL Normal 32.0-35.0 [facility] Comment on above: Performed By: #### L [id number] ####[facility] (BEAKER)[address] [place] [address] Hematocrit (Bld) [Volume fraction] 46.8 % Normal 39.0-55.0 [facility] Comment on above: Performed By: #### L [id number] ####[facility] (BEAKER)[address] [place] [address] Hemoglobin (Bld) [Mass/Vol] 15.0 g/dL Normal 13.0-17.0 [facility] Comment on above: Performed By: #### L [id number] ####[facility] (BEAKER)[address] [place] [address] Immature granulocytes (Bld) [#/Vol] 0.04 10*3/uL Normal 0.00-0.20 [facility] Comment on above: Performed By: #### L [id number] ####[facility] (BEAKER)[address] [place] [address] Immature granulocytes/100 WBC (Bld) 0.5 % Normal 0.0-1.0 [facility] Comment on above: Performed By: #### L [id number] ####[facility] (BEAKER)[address] [place] [address] Lymphocytes (Bld) [#/Vol] 1.49 10*3/uL Normal 1.20-4.00 [facility] Comment on above: Performed By: #### L [id number] ####[facility] (BEAKER)[address] [place] [address] Lymphocytes/100 WBC (Bld) 17.2 % Low 20.0-45.0 [facility] Comment on above: Performed By: #### L [id number] ####[facility] (BEAKER)[address] [place] [address] MCH (RBC) [Entitic mass] 28.5 pg Normal 27.0-33.0 [facility] Comment on above: Performed By: #### L [id number] ####[facility] (BEAKER)[address] [place] [address] MCV (RBC) [Entitic vol] 88.8 fL Normal 82.0-98.0 [facility] Comment on above: Performed By: #### L [id number] ####[facility] (BEAKER)[address] [place] [address] Monocytes (Bld) [#/Vol] 0.81 10*3/uL Normal 0.10-1.00 [facility] Comment on above: Performed By: #### L [id number] ####[facility] (BEAKER)[address] [place] [address] Monocytes/100 WBC (Bld) 9.4 % Normal 5.0-12.0 [facility] Comment on above: Performed By: #### L [id number] ####[facility] ([facility])[address] [place] [address] Neutrophils (Bld) [#/Vol] 6.03 10*3/uL Normal 1.60-7.60 [facility] Comment on above: Performed By: #### L [id number] ####[facility] ([facility])[address] [place] [address] Neutrophils/100 WBC (Bld) 69.5 % Normal 40.0-72.0 [facility] Comment on above: Performed By: #### L [id number] ####[facility] ([facility])[address] [place] [address] NRBC (PER 100 WBCS) BY AUTOMATED COUNT 0.0 % Normal 0 [facility] Comment on above: Performed By: #### L [id number] ####[facility] ([facility])[address] [place] [address] PLATELETS (10*3/UL) IN BLOOD AUTOMATED COUNT 204 10*3/uL Normal 150-400 [facility] Comment on above: Performed By: #### L [id number] ####[facility] ([facility])[address] [place] [address] RBC (Bld) [#/Vol] 5.27 10*6/uL Normal 4.20-5.70 [facility] Comment on above: Performed By: #### L [id number] ####[facility] ([facility])[address] [place] [address] WBC (Bld) [#/Vol] 8.66 10*3/uL Normal 4.00-10.60 [facility] Comment on above: Performed By: #### L [id number] ####[facility] ([facility] [place] [address] DSon 11-25-2023 DS Normal [facility] 30on 11-24-2023 30 Normal [facility] CBC WITH AUTO DIFFERENTIALon 11-24-2023 Basophils (Bld) [#/Vol] 0.05 10*3/uL Normal 0.00-0.20 [facility] Comment on above: Performed By: #### L [id number] ####[facility] (BEAKER)[address] [place] [address] Basophils/100 WBC (Bld) 0.6 % Normal 0.0-1.0 [facility] Comment on above: Performed By: #### L [id number] ####[facility] (BEAKER)[address] [place] [address] Eosinophils (Bld) [#/Vol] 0.22 10*3/uL Normal 0.00-0.50 [facility] Comment on above: Performed By: #### L [id number] ####[facility] (BEAKER)[address] [place] [address] Eosinophils/100 WBC (Bld) 2.5 % Normal 0.0-6.0 [facility] Comment on above: Performed By: #### L [id number] ####[facility] (BEAKER)[address] [place] [address] Erythrocyte distribution width (RBC) [Ratio] 14.6 % Normal 11.5-15.0 [facility] Comment on above: Performed By: #### L [id number] ####[facility] (BEAKER)[address] [place] [address] ERYTHROCYTE MEAN CORPUSCULAR HEMOGLOBIN CONCENTRATION (G/DL) BY AUTOMATED 32.6 g/dL Normal 32.0-35.0 [facility] Comment on above: Performed By: #### L [id number] ####[facility] (BEAKER)[address] [place] [address] Hematocrit (Bld) [Volume fraction] 44.8 % Normal 39.0-55.0 [facility] Comment on above: Performed By: #### L [id number] ####[facility] (BEAKER)[address] [place] [address] Hemoglobin (Bld) [Mass/Vol] 14.6 g/dL Normal 13.0-17.0 [facility] Comment on above: Performed By: #### L [id number] ####[facility] (BEAKER)[address] [place] [address] Immature granulocytes (Bld) [#/Vol] 0.04 10*3/uL Normal 0.00-0.20 [facility] Comment on above: Performed By: #### L [id number] ####[facility] (BEAKER)[address] [place] [address] Immature granulocytes/100 WBC (Bld) 0.5 % Normal 0.0-1.0 [facility] Comment on above: Performed By: #### L [id number] ####[facility] (BEAKER)[address] [place] [address] Lymphocytes (Bld) [#/Vol] 1.07 10*3/uL Low 1.20-4.00 [facility] Comment on above: Performed By: #### L [id number] ####[facility] (BEAKER)[address] [place] [address] Lymphocytes/100 WBC (Bld) 12.3 % Low 20.0-45.0 [facility] Comment on above: Performed By: #### L [id number] ####[facility] (BEAKER)[address] [place] [address] MCH (RBC) [Entitic mass] 28.7 pg Normal 27.0-33.0 [facility] Comment on above: Performed By: #### L [id number] ####[facility] (BEAKER)[address] [place] [address] MCV (RBC) [Entitic vol] 88.2 fL Normal 82.0-98.0 [facility] Comment on above: Performed By: #### L [id number] ####[facility] (BEAKER)[address] [place] [address] Monocytes (Bld) [#/Vol] 0.89 10*3/uL Normal 0.10-1.00 [facility] Comment on above: Performed By: #### L [id number] ####[facility] ([facility])[address] [place] [address] Monocytes/100 WBC (Bld) 10.2 % Normal 5.0-12.0 [facility] Comment on above: Performed By: #### L [id number] ####[facility] ([facility])[address] [place] [address] Neutrophils (Bld) [#/Vol] 6.45 10*3/uL Normal 1.60-7.60 [facility] Comment on above: Performed By: #### L [id number] ####[facility] ([facility])[address] [place] [address] Neutrophils/100 WBC (Bld) 73.9 % High 40.0-72.0 [facility] Comment on above: Performed By: #### L [id number] ####[facility] ([facility])[address] [place] [address] NRBC (PER 100 WBCS) BY AUTOMATED COUNT 0.0 % Normal 0 [facility] Comment on above: Performed By: #### L [id number] ####[facility] ([facility])[address] [place] [address] PLATELETS (10*3/UL) IN BLOOD AUTOMATED COUNT 209 10*3/uL Normal 150-400 [facility] Comment on above: Performed By: #### L [id number] ####[facility] ([facility])[address] [place] [address] RBC (Bld) [#/Vol] 5.08 10*6/uL Normal 4.20-5.70 [facility] Comment on above: Performed By: #### L [id number] ####[facility] ([facility])[address] [place] [address] WBC (Bld) [#/Vol] 8.72 10*3/uL Normal 4.00-10.60 [facility] Comment on above: Performed By: #### L [id number] ####[facility] ([facility] [place] [address] COMPREHENSIVE METABOLIC PANE Aldo 11-24-2023 Albumin [Mass/Vol] 3.8 g/dL Normal 3.5-5.7 [facility] Comment on above: Performed By: #### L [id number] ####[facility] ([facility] [place] [address] ALP [Catalytic activity/Vol] 92 U/L Normal 34-104 [facility] Comment on above: Performed By: #### L [id number] ####[facility] ([facility])[address] [place] [address] ALT [Catalytic activity/Vol] 12 U/L Normal 7-52 [facility] Comment on above: Performed By: #### L [id number] ####[facility] ([facility] [place] [address] Anion gap [Moles/Vol] 14 mmol/L Normal 7-20 [facility] Comment on above: Performed By: #### L [id number] ####[facility] ([facility])[address] [place] [address] AST [Catalytic activity/Vol] 22 U/L Normal 13-39 [facility] Comment on above: Performed By: #### L [id number] ####[facility] ([facility])[address] [place] [address] Bilirubin [Mass/Vol] 1.0 mg/dL Normal 0.3-1.0 [facility] Comment on above: Performed By: #### L [id number] ####[facility] ([facility])[address] [place] [address] Calcium [Mass/Vol] 9.8 mg/dL Normal 8.6-10.3 [facility] Comment on above: Performed By: #### L [id number] ####[facility] ([facility] [place] [address] Chloride [Moles/Vol] 100 mmol/L Normal 98-107 [facility] Comment on above: Performed By: #### L [id number] ####[facility] ([facility] [place] [address] CO2 [Moles/Vol] 24 mmol/L Normal 21-31 [facility] Comment on above: Performed By: #### L [id number] ####[facility] ([facility])[address] [place] [address] Creatinine [Mass/Vol] 2.11 mg/dL High 0.70-1.30 [facility] Comment on above: Performed By: #### L [id number] ####[facility] ([facility])[address] [place] [address] GLOMERULAR FILTRATION RATE ML/MIN/1.73 SQ M.PREDICTED 30.9 mL/min/1.73m*2 Low >60.0 [facility] Comment on above: Result Comment: [facility]???s estimated glomerular filtration rate (eGFR) will no [...] of individuals. Performed By: #### L [id number] ####[facility] ([facility] [place] [address] Glucose [Mass/Vol] 116 mg/dL High 70-100 [facility] Comment on above: Performed By: #### L [id number] ####[facility] ([facility] [place] [address] Potassium [Moles/Vol] 3.4 mmol/L Low 3.5-5.1 [facility] Comment on above: Performed By: #### L [id number] ####[facility] ([facility])[address] [place] [address] Protein [Mass/Vol] 7.3 g/dL Normal 6.0-8.3 [facility] Comment on above: Performed By: #### L [id number] ####[facility] ([facility])[address] [place] [address] Sodium [Moles/Vol] 135 mmol/L Low 136-145 [facility] Comment on above: Performed By: #### L [id number] ####[facility] ([facility])[address] [place] [address] Urea nitrogen [Mass/Vol] 55 mg/dL High 7- [facility] Comment on above: Performed By: #### L [id number] ####[facility] ([facility])[address] [place] [address] UREA NITROGEN/CREATININE (MASS RATIO) IN SER/PLAS 26.1 Normal [facility] Comment on above: Performed By: #### L [id number] ####[facility] ([facility])[address] [place] [address] MAGNESIUMon 11-24-2023 Magnesium [Mass/Vol] 2.4 mg/dL Normal 1.9-2.7 [facility] Comment on above: Performed By: #### L [id number] ####[facility] ([facility] [place] [address] 30on 11-23-2023 30 Normal [facility] 30 Normal [facility] BASIC METABOLIC PANELon 0 Anion gap [Moles/Vol] 15 mmol/L Normal 7-20 [facility] Comment on above: Performed By: #### L [id number] ####[facility] ([facility])[address] [place] [address] Calcium [Mass/Vol] 10.1 mg/dL Normal 8.6-10.3 [facility] Comment on above: Performed By: #### L [id number] ####[facility] (BEAKER)[address] [place] [address] Chloride [Moles/Vol] 99 mmol/L Normal 98-107 [facility] Comment on above: Performed By: #### L [id number] ####[facility] ([place])[address] [place] [address] CO2 [Moles/Vol] 25 mmol/L Normal 21-31 [facility] Comment on above: Performed By: #### L [id number] ####[facility] ([facility] [place] [address] Creatinine [Mass/Vol] 2.02 mg/dL High 0.70-1.30 [facility] Comment on above: Performed By: #### L [id number] ####[facility] ([facility])[address] [place] [address] GLOMERULAR FILTRATION RATE ML/MIN/1.73 SQ M.PREDICTED 32.5 mL/min/1.73m*2 Low >60.0 [facility] Comment on above: Result Comment: The [facility]???s estimated glomerular filtration rate (eGFR) will no [...] of individuals. Performed By: #### L [id number] ####[facility] ([place])[address] [place] [address] Glucose [Mass/Vol] 103 mg/dL High 70-100 [facility] Comment on above: Performed By: #### L [id number] ####[facility] ([place])[address] [place] [address] Potassium [Moles/Vol] 3.5 mmol/L Normal 3.5-5.1 [facility] Comment on above: Performed By: #### L [id number] ####[facility] (BEAKER)[address] [place] [address] Sodium [Moles/Vol] 135 mmol/L Low 136-145 [facility] Comment on above: Performed By: #### L [id number] ####[facility] ([facility] [place] [address] Urea nitrogen [Mass/Vol] 50 mg/dL High 7-25 [facility] Comment on above: Performed By: #### L [id number] ####[facility] ([facility])[address] [place] [address] UREA NITROGEN/CREATININE (MASS RATIO) IN SER/PLAS 24.8 Normal [facility] Comment on above: Performed By: #### L [id number] ####[facility] ([facility])[address] [place] [address] CBC WITH AUTO DIFFERENTIALon 11-23-2023 Basophils (Bld) [#/Vol] 0.04 10*3/uL Normal 0.00-0.20 [facility] Comment on above: Performed By: #### L [id number] ####[facility] ([facility])[address] [place] [address] Basophils/100 WBC (Bld) 0.4 % Normal 0.0-1.0 [facility] Comment on above: Performed By: #### L [id number] ####[facility] ([facility])[address] [place] [address] Eosinophils (Bld) [#/Vol] 0.13 10*3/uL Normal 0.00-0.50 [facility] Comment on above: Performed By: #### L [id number] ####[facility] ([facility])[address] [place] [address] Eosinophils/100 WBC (Bld) 1.4 % Normal 0.0-6.0 [facility] Comment on above: Performed By: #### L [id number] ####[facility] [facility] [place] [address] Erythrocyte distribution width (RBC) [Ratio] 14.9 % Normal 11.5-15.0 [facility] Comment on above: Performed By: #### L [id number] ####[facility] ([facility])[address] [place] [address] ERYTHROCYTE MEAN CORPUSCULAR HEMOGLOBIN CONCENTRATION (G/DL) BY AUTOMATED 31.8 g/dL Low 32.0-35.0 [facility] Comment on above: Performed By: #### L [id number] ####[facility] ([facility])[address] [place] [address] Hematocrit (Bld) [Volume fraction] 44.6 % Normal 39.0-55.0 [facility] Comment on above: Performed By: #### L [id number] ####[facility] ([facility])[address] [place] [address] Hemoglobin (Bld) [Mass/Vol] 14.2 g/dL Normal 13.0-17.0 [facility] Comment on above: Performed By: #### L [id number] ####[facility] ([facility])[address] [place] [address] Immature granulocytes (Bld) [#/Vol] 0.04 10*3/uL Normal 0.00-0.20 [facility] Comment on above: Performed By: #### L [id number] ####[facility] ([facility])[address] [place] [address] Immature granulocytes/100 WBC (Bld) 0.4 % Normal 0.0-1.0 [facility] Comment on above: Performed By: #### L [id number] ####[facility] ([facility])[address] [place] [address] Lymphocytes (Bld) [#/Vol] 1.04 10*3/uL Low 1.20-4.00 [facility] Comment on above: Performed By: #### L [id number] ####[facility] ([facility])[address] [place] [address] Lymphocytes/100 WBC (Bld) 11.3 % Low 20.0-45.0 [facility] Comment on above: Performed By: #### L [id number] ####[facility] ([facility])[address] [place] [address] MCH (RBC) [Entitic mass] 28.5 pg Normal 27.0-33.0 [facility] Comment on above: Performed By: #### L [id number] ####[facility] ([facility])[address] [place] [address] MCV (RBC) [Entitic vol] 89.6 fL Normal 82.0-98.0 [facility] Comment on above: Performed By: #### L [id number] ####[facility] ([facility])[address] [place] [address] Monocytes (Bld) [#/Vol] 0.83 10*3/uL Normal 0.10-1.00 [facility] Comment on above: Performed By: #### L [id number] ####[facility] ([facility])[address] [place] [address] Monocytes/100 WBC (Bld) 9.0 % Normal 5.0-12.0 [facility] Comment on above: Performed By: #### L [id number] ####[facility] ([facility])[address] [place] [address] Neutrophils (Bld) [#/Vol] 7.12 10*3/uL Normal 1.60-7.60 [facility] Comment on above: Performed By: #### L [id number] ####[facility] ([facility])[address] [place] [address] Neutrophils/100 WBC (Bld) 77.5 % High 40.0-72.0 [facility] Comment on above: Performed By: #### L [id number] ####[facility] ([facility])[address] [place] [address] NRBC (PER 100 WBCS) BY AUTOMATED COUNT 0.0 % Normal 0 [facility] Comment on above: Performed By: #### L [id number] ####[facility] ([facility])[address] [place] [address] PLATELETS (10*3/UL) IN BLOOD AUTOMATED COUNT 212 10*3/uL Normal 150-400 [facility] Comment on above: Performed By: #### L [id number] ####[facility] ([facility])[address] [place] [address] RBC (Bld) [#/Vol] 4.98 10*6/uL Normal 4.20-5.70 [facility] Comment on above: Performed By: #### L [id number] ####[facility] ([facility])[address] [place] [address] WBC (Bld) [#/Vol] 9.20 10*3/uL Normal 4.00-10.60 [facility] Comment on above: Performed By: #### L [id number] ####[facility] ([facility])[address] [place] [address] 30on - 30 Normal [facility] 30 Normal [facility] 30 Normal [facility] BASIC METABOLIC PANELon 03-0 Anion gap [Moles/Vol] 15 mmol/L Normal 7-20 [facility] Comment on above: Performed By: #### L [id number] ####[facility] ([facility])[address] [place] [address] Calcium [Mass/Vol] 9.6 mg/dL Normal 8.6-10.3 [facility] Comment on above: Performed By: #### L [id number] ####[facility] ([facility])[address] [place] [address] Chloride [Moles/Vol] 100 mmol/L Normal 98-107 [facility] Comment on above: Performed By: #### L [id number] ####[facility] ([facility])[address] [place] [address] CO2 [Moles/Vol] 26 mmol/L Normal 21-31 [facility] Comment on above: Performed By: #### L [id number] ####[facility] ([facility])[address] [place] [address] Creatinine [Mass/Vol] 2.19 mg/dL High 0.70-1.30 [facility] Comment on above: Performed By: #### L [id number] ####[facility] ([facility])[address] [place] [address] GLOMERULAR FILTRATION RATE ML/MIN/1.73 SQ M.PREDICTED 29.5 mL/min/1.73m*2 Low >60.0 [facility] Comment on above: Result Comment: The [facility]???s estimated glomerular filtration rate (eGFR) will no [...] of individuals. Performed By: #### L [id number] ####[facility] ([facility])[address] [place] [address] Glucose [Mass/Vol] 110 mg/dL High 70-100 [facility] Comment on above: Performed By: #### L [id number] ####[facility] ([facility])[address] [place] [address] Potassium [Moles/Vol] 3.4 mmol/L Low 3.5-5.1 [facility] Comment on above: Performed By: #### L [id number] ####[facility] ([facility])[address] [place] [address] Sodium [Moles/Vol] 138 mmol/L Normal 136-145 [facility] Comment on above: Performed By: #### L [id number] ####[facility] ([facility])[address] [place] [address] Urea nitrogen [Mass/Vol] 52 mg/dL High 7-25 [facility] Comment on above: Performed By: #### L [id number] ####[facility] ([facility])[address] [place] [address] UREA NITROGEN/CREATININE (MASS RATIO) IN SER/PLAS 23.7 Normal [facility] Comment on above: Performed By: #### L [id number] ####[facility] ([facility])[address] [place] [address] CBC WITH AUTO DIFFERENTIALon 11-22-2023 Basophils (Bld) [#/Vol] 0.04 10*3/uL Normal 0.00-0.20 [facility] Comment on above: Performed By: #### L [id number] ####[facility] ([facility])[address] [place] [address] Basophils/100 WBC (Bld) 0.3 % Normal 0.0-1.0 [facility] Comment on above: Performed By: #### L [id number] ####[facility] ([facility])[address] [place] [address] Eosinophils (Bld) [#/Vol] 0.07 10*3/uL Normal 0.00-0.50 [facility] Comment on above: Performed By: #### L [id number] ####[facility] ([facility])[address] [place] [address] Eosinophils/100 WBC (Bld) 0.6 % Normal 0.0-6.0 [facility] Comment on above: Performed By: #### L [id number] ####[facility] ([facility])[address] [place] [address] Erythrocyte distribution width (RBC) [Ratio] 15.2 % High 11.5-15.0 [facility] Comment on above: Performed By: #### L [id number] ####[facility] ([facility])[address] [place] [address] ERYTHROCYTE MEAN CORPUSCULAR HEMOGLOBIN CONCENTRATION (G/DL) BY AUTOMATED 32.5 g/dL Normal 32.0-35.0 [facility] Comment on above: Performed By: #### L [id number] ####[facility] ([facility])[address] [place] [address] Hematocrit (Bld) [Volume fraction] 41.2 % Normal 39.0-55.0 [facility] Comment on above: Performed By: #### L [id number] ####[facility] ([facility])[address] [place] [address] Hemoglobin (Bld) [Mass/Vol] 13.4 g/dL Normal 13.0-17.0 [facility] Comment on above: Performed By: #### L [id number] ####[facility] ([facility])[address] [place] [address] Immature granulocytes (Bld) [#/Vol] 0.05 10*3/uL Normal 0.00-0.20 [facility] Comment on above: Performed By: #### L [id number] ####[facility] ([facility])[address] [place] [address] Immature granulocytes/100 WBC (Bld) 0.4 % Normal 0.0-1.0 [facility] Comment on above: Performed By: #### L [id number] ####[facility] ([facility])[address] [place] [address] Lymphocytes (Bld) [#/Vol] 1.07 10*3/uL Low 1.20-4.00 [facility] Comment on above: Performed By: #### L [id number] ####[facility] ([facility])[address] [place] [address] Lymphocytes/100 WBC (Bld) 8.7 % Low 20.0-45.0 [facility] Comment on above: Performed By: #### L [id number] ####[facility] ([facility])[address] [place] [address] MCH (RBC) [Entitic mass] 28.7 pg Normal 27.0-33.0 [facility] Comment on above: Performed By: #### L [id number] ####[facility] ([facility])[address] [place] [address] MCV (RBC) [Entitic vol] 88.2 fL Normal 82.0-98.0 [facility] Comment on above: Performed By: #### L [id number] ####[facility] ([facility])[address] [place] [address] Monocytes (Bld) [#/Vol] 1.09 10*3/uL High 0.10-1.00 [facility] Comment on above: Performed By: #### L [id number] ####[facility] ([facility])[address] [place] [address] Monocytes/100 WBC (Bld) 8.9 % Normal 5.0-12.0 [facility] Comment on above: Performed By: #### L [id number] ####[facility] ([facility])[address] [place] [address] Neutrophils (Bld) [#/Vol] 9.95 10*3/uL High 1.60-7.60 [facility] Comment on above: Performed By: #### L [id number] ####[facility] ([facility])[address] [place] [address] Neutrophils/100 WBC (Bld) 81.1 % High 40.0-72.0 [facility] Comment on above: Performed By: #### L [id number] ####[facility] ([facility])[address] [place] [address] NRBC (PER 100 WBCS) BY AUTOMATED COUNT 0.0 % Normal 0 [facility] Comment on above: Performed By: #### L [id number] ####[facility] ([facility])[address] [place] [address] PLATELETS (10*3/UL) IN BLOOD AUTOMATED COUNT 196 10*3/uL Normal 150-400 [facility] Comment on above: Performed By: #### L [id number] ####[facility] ([facility])[address] [place] [address] RBC (Bld) [#/Vol] 4.67 10*6/uL Normal 4.20-5.70 [facility] Comment on above: Performed By: #### L [id number] ####[facility] ([facility])[address] [place] [address] WBC (Bld) [#/Vol] 12.27 10*3/uL High 4.00-10.60 [facility] Comment on above: Performed By: #### L [id number] ####[facility] ([facility])[address] [place] [address] 30on 11-21-2023 30 The patient is Moder ately Stable - Low risk of patient condition declining or worsening The patient's goals for the shift include comfort The clinical goals for the shift include stable vitals Normal [facility] 30 Normal [facility] 30 Normal [facility] BASIC METABOLIC PANELon 03 Anion gap [Moles/Vol] 15 mmol/L Normal 7-20 [facility] Comment on above: Performed By: #### L [id number] ####[facility] ([facility])[address] [place] [address] Calcium [Mass/Vol] 9.7 mg/dL Normal 8.6-10.3 [facility] Comment on above: Performed By: #### L [id number] ####[facility] ([facility])[address] [place] [address] Chloride [Moles/Vol] 100 mmol/L Normal 98-107 [facility] Comment on above: Performed By: #### L [id number] ####[facility] ([facility])[address] [place] [address] CO2 [Moles/Vol] 25 mmol/L Normal 21-31 [facility] Comment on above: Performed By: #### L [id number] ####[facility] ([facility])[address] [place] [address] Creatinine [Mass/Vol] 2.27 mg/dL High 0.70-1.30 [facility] Comment on above: Performed By: #### L [id number] ####[facility] ([facility])[address] [place] [address] GLOMERULAR FILTRATION RATE ML/MIN/1.73 SQ M.PREDICTED 28.3 mL/min/1.73m*2 Low >60.0 [facility] Comment on above: Result Comment: The [facility]???s estimated glomerular filtration rate (eGFR) will no [...] of individuals. Performed By: #### L [id number] ####[facility] ([facility])[address] [place] [address] Glucose [Mass/Vol] 107 mg/dL High 70-100 [facility] Comment on above: Performed By: #### L [id number] ####[facility] ([facility])[address] [place] [address] Potassium [Moles/Vol] 3.1 mmol/L Low 3.5-5.1 [facility] Comment on above: Performed By: #### L [id number] ####[facility] ([facility])[address] [place] [address] Sodium [Moles/Vol] 137 mmol/L Normal 136-145 [facility] Comment on above: Performed By: #### L [id number] ####[facility] ([facility])[address] [place] [address] Urea nitrogen [Mass/Vol] 50 mg/dL High 7-25 [facility] Comment on above: Performed By: #### L [id number] ####[facility] ([facility])[address] [place] [address] UREA NITROGEN/CREATININE (MASS RATIO) IN SER/PLAS 22.0 Normal [facility] Comment on above: Performed By: #### L [id number] ####[facility] ([facility])[address] [place] [address] CBC WITH AUTO DIFFERENTIALon 11-21-2023 Basophils (Bld) [#/Vol] 0.03 10*3/uL Normal 0.00-0.20 [facility] Comment on above: Performed By: #### L [id number] ####[facility] ([facility])[address] [place] [address] Basophils/100 WBC (Bld) 0.2 % Normal 0.0-1.0 [facility] Comment on above: Performed By: #### L [id number] ####[facility] ([facility])[address] [place] [address] Eosinophils (Bld) [#/Vol] 0.04 10*3/uL Normal 0.00-0.50 [facility] Comment on above: Performed By: #### L [id number] ####[facility] ([facility])[address] [place] [address] Eosinophils/100 WBC (Bld) 0.3 % Normal 0.0-6.0 [facility] Comment on above: Performed By: #### L [id number] ####[facility] ([facility])[address] [place] [address] Erythrocyte distribution width (RBC) [Ratio] 15.2 % High 11.5-15.0 [facility] Comment on above: Performed By: #### L [id number] ####[facility] ([facility])[address] [place] [address] ERYTHROCYTE MEAN CORPUSCULAR HEMOGLOBIN CONCENTRATION (G/DL) BY AUTOMATED 32.0 g/dL Normal 32.0-35.0 [facility] Comment on above: Performed By: #### L [id number] ####[facility] ([facility])[address] [place] [address] Hematocrit (Bld) [Volume fraction] 38.8 % Low 39.0-55.0 [facility] Comment on above: Performed By: #### L [id number] ####[facility] ([facility])[address] [place] [address] Hemoglobin (Bld) [Mass/Vol] 12.4 g/dL Low 13.0-17.0 [facility] Comment on above: Performed By: #### L [id number] ####[facility] ([facility])[address] [place] [address] Immature granulocytes (Bld) [#/Vol] 0.07 10*3/uL Normal 0.00-0.20 [facility] Comment on above: Performed By: #### L [id number] ####[facility] ([facility])[address] [place] [address] Immature granulocytes/100 WBC (Bld) 0.5 % Normal 0.0-1.0 [facility] Comment on above: Performed By: #### L [id number] ####[facility] ([facility])[address] [place] [address] Lymphocytes (Bld) [#/Vol] 0.84 10*3/uL Low 1.20-4.00 [facility] Comment on above: Performed By: #### L [id number] ####[facility] ([facility])[address] [place] [address] Lymphocytes/100 WBC (Bld) 6.2 % Low 20.0-45.0 [facility] Comment on above: Performed By: #### L [id number] ####[facility] ([facility])[address] [place] [address] MCH (RBC) [Entitic mass] 28.9 pg Normal 27.0-33.0 [facility] Comment on above: Performed By: #### L [id number] ####[facility] ([facility])[address] [place] [address] MCV (RBC) [Entitic vol] 90.4 fL Normal 82.0-98.0 [facility] Comment on above: Performed By: #### L [id number] ####[facility] ([facility])[address] [place] [address] Monocytes (Bld) [#/Vol] 1.00 10*3/uL Normal 0.10-1.00 [facility] Comment on above: Performed By: #### L [id number] ####[facility] ([facility])[address] [place] [address] Monocytes/100 WBC (Bld) 7.4 % Normal 5.0-12.0 [facility] Comment on above: Performed By: #### L [id number] ####[facility] ([facility])[address] [place] [address] Neutrophils (Bld) [#/Vol] 11.61 10*3/uL High 1.60-7.60 [facility] Comment on above: Performed By: #### L [id number] ####[facility] ([facility])[address] [place] [address] Neutrophils/100 WBC (Bld) 85.4 % High 40.0-72.0 [facility] Comment on above: Performed By: #### L [id number] ####[facility] ([facility])[address] [place] [address] NRBC (PER 100 WBCS) BY AUTOMATED COUNT 0.0 % Normal 0 [facility] Comment on above: Performed By: #### L [id number] ####[facility] ([facility])[address] [place] [address] PLATELETS (10*3/UL) IN BLOOD AUTOMATED COUNT 176 10*3/uL Normal 150-400 [facility] Comment on above: Performed By: #### L [id number] ####[facility] ([facility])[address] [place] [address] RBC (Bld) [#/Vol] 4.29 10*6/uL Normal 4.20-5.70 [facility] Comment on above: Performed By: #### L [id number] ####[facility] ([facility])[address] [place] [address] WBC (Bld) [#/Vol] 13.59 10*3/uL High 4.00-10.60 [facility] Comment on above: Performed By: #### L [id number] ####[facility] ([facility])[address] [place] [address] MAGNESIUMon 11-21-2023 Magnesium [Mass/Vol] 2.3 mg/dL Normal 1.9-2.7 [facility] Comment on above: Performed By: #### L [id number] ####[facility] ([facility])[address] [place] [address] 30on 11-20-2023 30 Normal [facility] 30 Normal [facility] 30 Normal [facility] BASIC METABOLIC PANELon 03- Anion gap [Moles/Vol] 15 mmol/L Normal 7-20 [facility] Comment on above: Performed By: #### L [id number] ####[facility] ([facility])[address] [place] [address] Calcium [Mass/Vol] 9.4 mg/dL Normal 8.6-10.3 [facility] Comment on above: Performed By: #### L [id number] ####[facility] ([facility])[address] [place] [address] Chloride [Moles/Vol] 101 mmol/L Normal 98-107 [facility] Comment on above: Performed By: #### L [id number] ####[facility] ([facility])[address] [place] [address] CO2 [Moles/Vol] 26 mmol/L Normal 21-31 [facility] Comment on above: Performed By: #### L [id number] ####[facility] ([facility])[address] [place] [address] Creatinine [Mass/Vol] 2.47 mg/dL High 0.70-1.30 [facility] Comment on above: Performed By: #### L [id number] ####[facility] ([facility])[address] [place] [address] GLOMERULAR FILTRATION RATE ML/MIN/1.73 SQ M.PREDICTED 25.5 mL/min/1.73m*2 Low >60.0 [facility] Comment on above: Result Comment: The [facility]???s estimated glomerular filtration rate (eGFR) will no [...] of individuals. Performed By: #### L [id number] ####[facility] ([facility])[address] [place] [address] Glucose [Mass/Vol] 125 mg/dL High 70-100 [facility] Comment on above: Performed By: #### L [id number] ####[facility] ([facility])[address] [place] [address] Potassium [Moles/Vol] 3.5 mmol/L Normal 3.5-5.1 [facility] Comment on above: Performed By: #### L [id number] ####[facility] ([facility])[address] [place] [address] Sodium [Moles/Vol] 138 mmol/L Normal 136-145 [facility] Comment on above: Performed By: #### L [id number] ####[facility] ([facility])[address] [place] [address] Urea nitrogen [Mass/Vol] 52 mg/dL High 7-25 [facility] Comment on above: Performed By: #### L [id number] ####[facility] ([facility])[address] [place] [address] UREA NITROGEN/CREATININE (MASS RATIO) IN SER/PLAS 21.1 Normal [facility] Comment on above: Performed By: #### L [id number] ####[facility] ([facility])[address] [place] [address] Anion gap [Moles/Vol] 14 mmol/L Normal 7-20 [facility] Comment on above: Performed By: #### L [id number] ####[facility] ([facility])[address] [place] [address] Calcium [Mass/Vol] 9.4 mg/dL Normal 8.6-10.3 [facility] Comment on above: Performed By: #### L [id number] ####[facility] ([facility] [place] [address] Chloride [Moles/Vol] 102 mmol/L Normal 98-107 [facility] Comment on above: Performed By: #### L [id number] ####[facility] ([facility])[address] [place] [address] CO2 [Moles/Vol] 25 mmol/L Normal 21-31 [facility] Comment on above: Performed By: #### L [id number] ####[facility] ([facility] [place] [address] Creatinine [Mass/Vol] 2.43 mg/dL High 0.70-1.30 [facility] Comment on above: Performed By: #### L [id number] ####[facility] ([facility])[address] [place] [address] GLOMERULAR FILTRATION RATE ML/MIN/1.73 SQ M.PREDICTED 26.1 mL/min/1.73m*2 Low >60.0 [facility] Comment on above: Result Comment: The [facility]???s estimated glomerular filtration rate (eGFR) will no [...] of individuals. Performed By: #### L [id number] ####[facility] ([facility])[address] [place] [address] Glucose [Mass/Vol] 143 mg/dL High 70-100 [facility] Comment on above: Performed By: #### L [id number] ####[facility] ([facility])[address] [place] [address] Potassium [Moles/Vol] 3.9 mmol/L Normal 3.5-5.1 [facility] Comment on above: Performed By: #### L [id number] ####[facility] ([facility])[address] [place] [address] Sodium [Moles/Vol] 137 mmol/L Normal 136-145 [facility] Comment on above: Performed By: #### L [id number] ####[facility] ([facility])[address] [place] [address] Urea nitrogen [Mass/Vol] 47 mg/dL High 7-25 [facility] Comment on above: Performed By: #### L [id number] ####[facility] ([facility])[address] [place] [address] UREA NITROGEN/CREATININE (MASS RATIO) IN SER/PLAS 19.3 Normal [facility] Comment on above: Performed By: #### L [id number] ####[facility] ([facility])[address] [place] [address] Anion gap [Moles/Vol] 14 mmol/L Normal 7-20 [facility] Comment on above: Performed By: #### L [id number] ####[facility] ([facility])[address] [place] [address] Calcium [Mass/Vol] 9.4 mg/dL Normal 8.6-10.3 [facility] Comment on above: Performed By: #### L [id number] ####[facility] ([facility])[address] [place] [address] Chloride [Moles/Vol] 103 mmol/L Normal 98-107 [facility] Comment on above: Performed By: #### L [id number] ####[facility] ([facility])[address] [place] [address] CO2 [Moles/Vol] 24 mmol/L Normal 21-31 [facility] Comment on above: Performed By: #### L [id number] ####[facility] ([facility])[address] [place] [address] Creatinine [Mass/Vol] 2.36 mg/dL High 0.70-1.30 [facility] Comment on above: Performed By: #### L [id number] ####[facility] ([facility])[address] [place] [address] GLOMERULAR FILTRATION RATE ML/MIN/1.73 SQ M.PREDICTED 27.0 mL/min/1.73m*2 Low >60.0 [facility] Comment on above: Result Comment: The [facility]???s estimated glomerular filtration rate (eGFR) will no [...] of individuals. Performed By: #### L [id number] ####[facility] ([facility] [place] [address] Glucose [Mass/Vol] 153 mg/dL High 70-100 [facility] Comment on above: Performed By: #### L [id number] ####[facility] ([facility])[address] [place] [address] Potassium [Moles/Vol] 3.7 mmol/L Normal 3.5-5.1 [facility] Comment on above: Performed By: #### L [id number] ####[facility] ([facility])[address] [place] [address] Sodium [Moles/Vol] 137 mmol/L Normal 136-145 [facility] Comment on above: Performed By: #### L [id number] ####[facility] ([facility] [place] [address] Urea nitrogen [Mass/Vol] 46 mg/dL High 7-25 [facility] Comment on above: Performed By: #### L [id number] ####[facility] ([facility] [place] [address] UREA NITROGEN/CREATININE (MASS RATIO) IN SER/PLAS 19.5 Normal [facility] Comment on above: Performed By: #### L [id number] ####[facility] ([facility])[address] [place] [address] CBC WITH AUTO DIFFERENTIALon 11-20-2023 Basophils (Bld) [#/Vol] 0.02 10*3/uL Normal 0.00-0.20 [facility] Comment on above: Performed By: #### L [id number] ####[facility] ([facility])[address] [place] [address] Basophils/100 WBC (Bld) 0.1 % Normal 0.0-1.0 [facility] Comment on above: Performed By: #### L [id number] ####[facility] ([facility] [place] [address] Eosinophils (Bld) [#/Vol] 0.00 10*3/uL Normal 0.00-0.50 [facility] Comment on above: Performed By: #### L [id number] ####[facility] ([facility])[address] [place] [address] Eosinophils/100 WBC (Bld) 0.0 % Normal 0.0-6.0 [facility] Comment on above: Performed By: #### L [id number] ####[facility] ([facility])[address] [place] [address] Erythrocyte distribution width (RBC) [Ratio] 15.1 % High 11.5-15.0 [facility] Comment on above: Performed By: #### L [id number] ####[facility] ([facility])[address] [place] [address] ERYTHROCYTE MEAN CORPUSCULAR HEMOGLOBIN CONCENTRATION (G/DL) BY AUTOMATED 32.4 g/dL Normal 32.0-35.0 [facility] Comment on above: Performed By: #### L [id number] ####[facility] ([facility])[address] [place] [address] Hematocrit (Bld) [Volume fraction] 35.8 % Low 39.0-55.0 [facility] Comment on above: Performed By: #### L [id number] ####[facility] ([facility])[address] [place] [address] Hemoglobin (Bld) [Mass/Vol] 11.6 g/dL Low 13.0-17.0 [facility] Comment on above: Performed By: #### L [id number] ####[facility] ([facility])[address] [place] [address] Immature granulocytes (Bld) [#/Vol] 0.11 10*3/uL Normal 0.00-0.20 [facility] Comment on above: Performed By: #### L [id number] ####[facility] ([facility])[address] [place] [address] Immature granulocytes/100 WBC (Bld) 0.8 % Normal 0.0-1.0 [facility] Comment on above: Performed By: #### L [id number] ####[facility] ([facility])[address] [place] [address] Lymphocytes (Bld) [#/Vol] 0.59 10*3/uL Low 1.20-4.00 [facility] Comment on above: Performed By: #### L [id number] ####[facility] ([facility])[address] [place] [address] Lymphocytes/100 WBC (Bld) 4.2 % Low 20.0-45.0 [facility] Comment on above: Performed By: #### L [id number] ####[facility] ([facility])[address] [place] [address] MCH (RBC) [Entitic mass] 29.5 pg Normal 27.0-33.0 [facility] Comment on above: Performed By: #### L [id number] ####[facility] ([facility])[address] [place] [address] MCV (RBC) [Entitic vol] 91.1 fL Normal 82.0-98.0 [facility] Comment on above: Performed By: #### L [id number] ####[facility] ([facility])[address] [place] [address] Monocytes (Bld) [#/Vol] 0.85 10*3/uL Normal 0.10-1.00 [facility] Comment on above: Performed By: #### L [id number] ####[facility] ([facility])[address] [place] [address] Monocytes/100 WBC (Bld) 6.0 % Normal 5.0-12.0 [facility] Comment on above: Performed By: #### L [id number] ####[facility] ([facility])[address] [place] [address] Neutrophils (Bld) [#/Vol] 12.57 10*3/uL High 1.60-7.60 [facility] Comment on above: Performed By: #### L [id number] ####[facility] ([facility])[address] [place] [address] Neutrophils/100 WBC (Bld) 88.9 % High 40.0-72.0 [facility] Comment on above: Performed By: #### L [id number] ####[facility] ([facility])[address] [place] [address] NRBC (PER 100 WBCS) BY AUTOMATED COUNT 0.0 % Normal 0 [facility] Comment on above: Performed By: #### L [id number] ####[facility] ([facility])[address] [place] [address] PLATELETS (10*3/UL) IN BLOOD AUTOMATED COUNT 159 10*3/uL Normal 150-400 [facility] Comment on above: Performed By: #### L [id number] ####[facility] ([facility])[address] [place] [address] RBC (Bld) [#/Vol] 3.93 10*6/uL Low 4.20-5.70 [facility] Comment on above: Performed By: #### L [id number] ####[facility] ([facility])[address] [place] [address] WBC (Bld) [#/Vol] 14.14 10*3/uL High 4.00-10.60 [facility] Comment on above: Performed By: #### L [id number] ####[facility] ([facility])[address] [place] [address] CONSULTon 11-20-2023 CONSULT Normal [facility] CREATININE, URINE, RANDOMon 11-20-2023 Creatinine (U) [Mass/Vol] 63.0 mg/dL Normal 26-299 [facility] Comment on above: Performed By: #### L [id number] ####[facility] ([facility])[address] [place] [address] MAGNESIUMon 11-20-2023 Magnesium [Mass/Vol] 2.2 mg/dL Normal 1.9-2.7 [facility] Comment on above: Performed By: #### L [id number] ####[facility] ([facility])[address] [place] [address] PROTEIN, URINE, RANDOMon Protein (U) [Mass/Vol] 12.0 mg/dL Normal [facility] Comment on above: Result Comment: Ther e are no established reference values for random urine specimens. Performed By: #### L [id number] ####[facility] ([facility])[address] [place] [address] URINALYSIS WITH REFLEX CULTU REon 11-20-2023 BILIRUBIN, TOTAL PRESENCE IN URINE Negative Normal Negative [facility] Comment on above: Order Comment: Micro scopics not performed on urines with negative chemical reactions unless requested on original order. Performed By: #### L [id number] ####[facility] ([facility])[address] [place] [address] Clarity (U) Clear Normal Clear [facility] Comment on above: Order Comment: Micro scopics not performed on urines with negative chemical reactions unless requested on original order. Performed By: #### L [id number] ####[facility] ([facility])[address] [place] [address] Color (U) Straw Abnormal Yellow [facility] Comment on above: Order Comment: Micro scopics not performed on urines with negative chemical reactions unless requested on original order. Performed By: #### L [id number] ####[facility] ([facility])[address] [place] [address] Glucose (U) [Mass/Vol] 150 mg/dL Abnormal Negative [facility] Comment on above: Order Comment: Micro scopics not performed on urines with negative chemical reactions unless requested on original order. Performed By: #### L [id number] ####[facility] ([facility])[address] [place] [address] HEMOGLOBIN PRESENCE IN URINE Negative Normal Negative [facility] Comment on above: Order Comment: Micro scopics not performed on urines with negative chemical reactions unless requested on original order. Performed By: #### L [id number] ####[facility] ([facility])[address] [place] [address] Ketones Ql (U) Negative Normal Negative [facility] Comment on above: Order Comment: Micro scopics not performed on urines with negative chemical reactions unless requested on original order. Performed By: #### L [id number] ####[facility] ([facility])[address] [place] [address] LEUKOCYTE ESTERASE PRESENCE IN URINE BY TEST STRIP Negative Normal Negative [facility] Comment on above: Order Comment: Micro scopics not performed on urines with negative chemical reactions unless requested on original order. Performed By: #### L [id number] ####[facility] ([facility])[address] [place] [address] NITRITE PRESENCE IN URINE Negative Normal Negative [facility] Comment on above: Order Comment: Micro scopics not performed on urines with negative chemical reactions unless requested on original order. Performed By: #### L [id number] ####[facility] ([facility])[address] [place] [address] pH (U) 5.0 [pH] Normal 5.0-8.0 [facility] Comment on above: Order Comment: Micro scopics not performed on urines with negative chemical reactions unless requested on original order. Performed By: #### L [id number] ####[facility] ([facility])[address] [place] [address] Protein (U) [Mass/Vol] Negative Normal Negative [facility] Comment on above: Order Comment: Micro scopics not performed on urines with negative chemical reactions unless requested on original order. Performed By: #### L [id number] ####[facility] ([facility])[address] [place] [address] Specific gravity (U) [Rel density] 1.011 Low 1.015-1.020 [facility] Comment on above: Order Comment: Micro scopics not performed on urines with negative chemical reactions unless requested on original order. Performed By: #### L [id number] ####[facility] ([facility])[address] [place] [address] 30on 11-19-2023 30 Normal [facility] ANESon 11-19-2023 ANES Normal [facility] B-TYPE NATRIURETIC PEPTIDEon 11-19-2023 Natriuretic peptide B (Bld) [Mass/Vol] 1747 pg/mL High 0-100 [facility] Comment on above: Performed By: #### L [id number] ####[facility] ([facility])[address] [place] [address] BASIC METABOLIC PANELon 03-0 5-2024 Anion gap [Moles/Vol] 16 mmol/L Normal 7-20 [facility] Comment on above: Performed By: #### L [id number] ####[facility] ([facility])[address] [place] [address] Calcium [Mass/Vol] 9.6 mg/dL Normal 8.6-10.3 [facility] Comment on above: Performed By: #### L [id number] ####[facility] ([facility])[address] [place] [address] Chloride [Moles/Vol] 103 mmol/L Normal 98-107 [facility] Comment on above: Performed By: #### L [id number] ####[facility] ([facility])[address] [place] [address] CO2 [Moles/Vol] 22 mmol/L Normal 21-31 [facility] Comment on above: Performed By: #### L [id number] ####[facility] ([facility])[address] [place] [address] Creatinine [Mass/Vol] 2.13 mg/dL High 0.70-1.30 [facility] Comment on above: Performed By: #### L [id number] ####[facility] ([facility])[address] [facility] [address] GLOMERULAR FILTRATION RATE ML/MIN/1.73 SQ M.PREDICTED 30.5 mL/min/1.73m*2 Low >60.0 [facility] Comment on above: Result Comment: The [facility]???s estimated glomerular filtration rate (eGFR) will no [...] of individuals. Performed By: #### L [id number] ####[facility] ([facility])[address] [place] [address] Glucose [Mass/Vol] 118 mg/dL High 70-100 [facility] Comment on above: Performed By: #### L [id number] ####[facility] ([facility])[address] [place] [address] Potassium [Moles/Vol] 4.4 mmol/L Normal 3.5-5.1 [facility] Comment on above: Performed By: #### L [id number] ####[facility] ([facility])[address] [place] [address] Sodium [Moles/Vol] 137 mmol/L Normal 136-145 [facility] Comment on above: Performed By: #### L [id number] ####[facility] ([facility])[address] [place] [address] Urea nitrogen [Mass/Vol] 41 mg/dL High 7-25 [facility] Comment on above: Performed By: #### L [id number] ####[facility] ([facility])[address] [place] [address] UREA NITROGEN/CREATININE (MASS RATIO) IN SER/PLAS 19.2 Normal [facility] Comment on above: Performed By: #### L [id number] ####[facility] ([facility])[address] [place] [address] CBC WITH AUTO DIFFERENTIALon 11-19-2023 Basophils (Bld) [#/Vol] 0.04 10*3/uL Normal 0.00-0.20 [facility] Comment on above: Performed By: #### L [id number] ####[facility] ([facility])[address] [place] [address] Basophils/100 WBC (Bld) 0.5 % Normal 0.0-1.0 [facility] Comment on above: Performed By: #### L [id number] ####[facility] ([facility])[address] [place] [address] Eosinophils (Bld) [#/Vol] 0.03 10*3/uL Normal 0.00-0.50 [facility] Comment on above: Performed By: #### L [id number] ####[facility] ([facility])[address] [place] [address] Eosinophils/100 WBC (Bld) 0.4 % Normal 0.0-6.0 [facility] Comment on above: Performed By: #### L [id number] ####[facility] ([facility])[address] [place] [address] Erythrocyte distribution width (RBC) [Ratio] 15.3 % High 11.5-15.0 [facility] Comment on above: Performed By: #### L [id number] ####[facility] ([facility])[address] [place] [address] ERYTHROCYTE MEAN CORPUSCULAR HEMOGLOBIN CONCENTRATION (G/DL) BY AUTOMATED 31.8 g/dL Low 32.0-35.0 [facility] Comment on above: Performed By: #### L [id number] ####[facility] ([facility])[address] [place] [address] Hematocrit (Bld) [Volume fraction] 39.0 % Normal 39.0-55.0 [facility] Comment on above: Performed By: #### L [id number] ####[facility] ([facility])[address] [place] [address] Hemoglobin (Bld) [Mass/Vol] 12.4 g/dL Low 13.0-17.0 [facility] Comment on above: Performed By: #### L [id number] ####[facility] ([facility])[address] [place] [address] Immature granulocytes (Bld) [#/Vol] 0.03 10*3/uL Normal 0.00-0.20 [facility] Comment on above: Performed By: #### L [id number] ####[facility] ([facility])[address] [place] [address] Immature granulocytes/100 WBC (Bld) 0.4 % Normal 0.0-1.0 [facility] Comment on above: Performed By: #### L [id number] ####[facility] ([facility])[address] [place] [address] Lymphocytes (Bld) [#/Vol] 1.02 10*3/uL Low 1.20-4.00 [facility] Comment on above: Performed By: #### L [id number] ####[facility] ([facility])[address] [place] [address] Lymphocytes/100 WBC (Bld) 12.1 % Low 20.0-45.0 [facility] Comment on above: Performed By: #### L [id number] ####[facility] ([facility])[address] [place] [address] MCH (RBC) [Entitic mass] 29.0 pg Normal 27.0-33.0 [facility] Comment on above: Performed By: #### L [id number] ####[facility] ([facility])[address] [place] [address] MCV (RBC) [Entitic vol] 91.3 fL Normal 82.0-98.0 [facility] Comment on above: Performed By: #### L [id number] ####[facility] ([facility])[address] [place] [address] Monocytes (Bld) [#/Vol] 0.45 10*3/uL Normal 0.10-1.00 [facility] Comment on above: Performed By: #### L [id number] ####[facility] ([facility])[address] [place] [address] Monocytes/100 WBC (Bld) 5.3 % Normal 5.0-12.0 [facility] Comment on above: Performed By: #### L [id number] ####[facility] ([facility])[address] [place] [address] Neutrophils (Bld) [#/Vol] 6.88 10*3/uL Normal 1.60-7.60 [facility] Comment on above: Performed By: #### L [id number] ####[facility] ([facility])[address] [place] [address] Neutrophils/100 WBC (Bld) 81.3 % High 40.0-72.0 [facility] Comment on above: Performed By: #### L [id number] ####[facility] ([facility])[address] [place] [address] NRBC (PER 100 WBCS) BY AUTOMATED COUNT 0.0 % Normal 0 [facility] Comment on above: Performed By: #### L [id number] ####[facility] ([facility])[address] [place] [address] PLATELETS (10*3/UL) IN BLOOD AUTOMATED COUNT 167 10*3/uL Normal 150-400 [facility] Comment on above: Performed By: #### L [id number] ####[facility] ([facility])[address] [place] [address] RBC (Bld) [#/Vol] 4.27 10*6/uL Normal 4.20-5.70 [facility] Comment on above: Performed By: #### L [id number] ####[facility] ([facility])[address] [place] [address] WBC (Bld) [#/Vol] 8.45 10*3/uL Normal 4.00-10.60 [facility] Comment on above: Performed By: #### L [id number] ####[facility] ([facility])[address] [place] [address] CONSULTon 11-19-2023 CONSULT [facility] HPon 11-19-2023 HP [facility] HP H&P reviewed. The pa gil was examined and there are no changes to the H&P. [facility] NURSNOTEon 11-19-2023 NURSNOTE Family took patient' s wallet home. [facility] NURSNOTE Report called to Venessa lui RN, RN verbalized understanding. [facility] POCT GLUCOSE METER UNSOLICIT ED RESULTSon 03-05-2024 Glucose [Mass/Vol] 103 mg/dL Normal 70-105 [facility] Comment on above: Order Comment: Waive d Testing in the ED is performed under the ED CLIA certificate #[id number]. Result Comment: [email or web address] Performed By: #### L [id number] ####[facility] ([facility])[address] [place] [address] HPon 11-18-2023 HP Normal [facility] ICD REMOTE CHECKon 3 AV Delay Adaptive Paced Minimum (ms) 200 ms [facility] AV Delay Adaptive Sensed Minimum (ms) 170 ms [facility] Bj RA Pacing Amplitude (volts) 2.0 V [facility] Bj RA Pacing Polarity BI [facility] Bj RA Pacing Pulse Width (ms) 0.5 ms [facility] Bj RA Sensing Amplitude (mvolts) 0.25 mV [facility] Bj RA Sensing Polarity BI [facility] Bj RV Pacing Amplitude (volts) 2.0 V [facility] Bj RV Pacing Polarity BI [facility] Bj RV Pacing Pulse Width (ms) 0.5 ms [facility] Bj RV Sensing Amplitude (mvolts) 0.3 mV [facility] Bj RV Sensing Polarity BI [facility] Detection Configuration (Vent) 2 - Zone [facility] FastVT_Detection Interval 250 ms [facility] FastVT_Therapy Configuration 1 ATP(s) + 8 Shock(s) [facility] ICD FastVT DetectionStatus ENABLED [facility] ICD-AMS EPISODES 170 {beats}/min [facility] ICD-ATP Episodes (Vent) 0 [facility] ICD-ATRIALFIBRILLAT ION 2 [facility] ICD-ATRIALTACHYCARD IA 2 [facility] ICD-ATRIALTACHYCARD IA 5 [facility] ICD-Device Mfg BSX [facility] ICD-Fast Ventricular Tachycardia 5 [facility] ICD-LEADIMPEDANCEAT RIAL 746 ohm [facility] ICD-Percent Pacing (Atrial) 1 % [facility] ICD-Percent Pacing (Vent) 0 % [facility] ICD-Shocks Aborted (Vent) 0 [facility] YWN-LJAZHL-ZFYXFAEN D 0 [facility] ICD-SHOCKSABORTED 0 [facility] ICD-SHOCKSDELIVERED VENTRICULAR 0 [facility] ICD-Ventricular Fibrillation 0 [facility] Lead Impedance (RV) 426 ohm [facility] Lead Impedance High Voltage 49 ohm [facility] Lead1 Mfg BSX [facility] Lead2 Mfg BSX [facility] Location RV [facility] Location RA [facility] Lower Rate (bpm) 50 {beats}/min [facility] Max Sensor Rate (bpm) 130 {beats}/min [facility] MDT_PROG_TACHY_ZONE _DETECTIONS_STATUS ENABLED [facility] Model D142 INOGEN [facility] Model [address] [place] [address] [facility] Model 7741 Ingevity MRI [facility] Pacing Mode DDDR [facility] Serial Number [id number] [facility] Serial Number [id number] [facility] Serial Number [id number] [facility] Test Charge Energy 23 J [facility] Test Charge Time 10.2 s [facility] Therapy Status (Vent) Enabled [facility] Thresh RA Capture Amplitude (volts) 0.6 V [facility] Thresh RA Capture Duration (ms) 0.5 ms [facility] Thresh RV Capture Amplitude (VOLTS) 0.5 V [facility] Thresh RV Capture Duration (MS) 0.5 ms [facility] Tracking Rate (bpm) 130 {beats}/min [facility] VF Zone Detection Interval 250 ms [facility] VF Zone Therapy Configuration 1 ATP(s) + 8 Shock(s) [facility] No Panel Informationon 02-21 BLANK _ [facility] ICD-ATRIALTACHYCARD IA 0 [facility] ICD-Fast Ventricular Tachycardia 0 [facility] Implant Date 03/24/2019 [facility] FREE T3on 02-08-2023 FREE T3 3.21 pg/mlL Normal 2.18-3.98 [facility] Comment on above: Performed By: #### V ITAD #### [facility] [address] [place] [address] Dr. Silva Burnett FREE T4on 02-08-2023 Free T4 [Mass/Vol] 0.74 ng/dL Critically low 0.76-1.46 Th [facility] Comment on above: Performed By: #### B MP, BNP #### [facility] [address] [place] [address] Dr. Silva Burnett TSHon 02-08-2023 TSH 0.168 uIU/mL Critically low 0.358-3.740 [facility] Comment on above: Performed By: #### V ITAD #### [facility] [address] [place] [address] Dr. Silva Burnett ICD REMOTE CHECKon 3 AV Delay Adaptive Paced Minimum (ms) 200 ms [facility] AV Delay Adaptive Sensed Minimum (ms) 170 ms [facility] Bj RA Pacing Amplitude (volts) 2 V [facility] Bj RA Pacing Polarity BI [facility] Bj RA Pacing Pulse Width (ms) 0.5 ms [facility] Bj RA Sensing Amplitude (mvolts) 0.25 mV [facility] Bj RA Sensing Polarity BI [facility] Bj RV Pacing Amplitude (volts) 2 V [facility] Bj RV Pacing Polarity BI [facility] Bj RV Pacing Pulse Width (ms) 0.5 ms [facility] Bj RV Sensing Amplitude (mvolts) 0.3 mV [facility] Bj RV Sensing Polarity BI [facility] Detection Configuration (Vent) 2 - Zone [facility] FastVT_Detection Interval 250 ms [facility] FastVT_Therapy Configuration 1 ATP(s) + 8 Shock(s) [facility] ICD FastVT DetectionStatus ENABLED [facility] ICD-AMS EPISODES 170 {beats}/min [facility] ICD-ATP Episodes (Vent) 0 [facility] ICD-ATRIALFIBRILLAT ION 1 [facility] ICD-ATRIALTACHYCARD IA 1 [facility] ICD-ATRIALTACHYCARD IA 3 [facility] ICD-Device Mfg BSX [facility] ICD-Fast Ventricular Tachycardia 3 [facility] ICD-LEADIMPEDANCEAT RIAL 786 ohm [facility] ICD-Percent Pacing (Atrial) 1 % [facility] ICD-Percent Pacing (Vent) 0 % [facility] ICD-Shocks Aborted (Vent) 0 [facility] [id number] D 0 [facility] ICD-SHOCKSABORTED 0 [facility] ICD-SHOCKSDELIVERED VENTRICULAR 0 [facility] ICD-Ventricular Fibrillation 0 [facility] Lead Impedance (RV) 458 ohm [facility] Lead Impedance High Voltage 53 ohm [facility] Lead1 Mfg BSX [facility] Lead2 Mfg BSX [facility] Location RV [facility] Location RA [facility] Lower Rate (bpm) 50 {beats}/min [facility] Max Sensor Rate (bpm) 130 {beats}/min [facility] MDT_PROG_TACHY_ZONE _DETECTIONS_STATUS ENABLED [facility] Model D142 INOGEN [facility] Model [address] [place] [address] [facility] Model 7741 Ingevity MRI [facility] Pacing Mode DDDR [facility] Serial Number [id number] [facility] Serial Number [id number] [facility] Serial Number [id number] [facility] Test Charge Energy 23 J [facility] Test Charge Time 10.2 s [facility] Therapy Status (Vent) Enabled [facility] Thresh RA Capture Amplitude (volts) 0.6 V [facility] Thresh RA Capture Duration (ms) 0.5 ms [facility] Thresh RV Capture Amplitude (VOLTS) 0.5 V [facility] Thresh RV Capture Duration (MS) 0.5 ms [facility] Tracking Rate (bpm) 130 {beats}/min [facility] VF Zone Detection Interval 250 ms [facility] VF Zone Therapy Configuration 1 ATP(s) + 8 Shock(s) [facility] No Panel Informationon 11-07 BLANK _ [facility] ICD-ATRIALTACHYCARD IA 0 [facility] ICD-Fast Ventricular Tachycardia 0 [facility] Implant Date 03/24/2019 [facility] Comprehensive metabolic 2000 panelon 10-26-2022 Albumin [Mass/Vol] 4.0 g/dL 3.9 - 4.9 g/dL [facility] ALP [Catalytic activity/Vol] 103 U/L 38 - 113 U/L [facility] ALT [Catalytic activity/Vol] 15 U/L 10 - 54 U/L [facility] Anion gap [Moles/Vol] 17 mmol/L 9 - 18 mmol/L [facility] AST [Catalytic activity/Vol] 26 U/L 14 - 40 U/L [facility] Bilirubin [Mass/Vol] 0.6 mg/dL 0.2 - 1.3 mg/dL [facility] Calcium [Mass/Vol] 10.2 mg/dL 8.5 - 10. 2 mg/dL [facility] Chloride [Moles/Vol] 103 mmol/L 97 - 105 mmol/L [facility] CO2 [Moles/Vol] 20 mmol/L Low 22 - 30 mmol/L [facility] Creatinine [Mass/Vol] 1.89 mg/dL High 0.73 - 1.22 mg/dL [facility] Estimated Glomerular Filtration Rate 35 mL/min/1.73m Low >=60 mL/min/1.73m [facility] Glucose [Mass/Vol] 103 mg/dL High 74 - 99 mg/dL [facility] Potassium [Moles/Vol] 5.5 mmol/L High 3.7 - 5.1 mmol/L [facility] Protein [Mass/Vol] 7.7 g/dL 6.3 - 8.0 g/dL [facility] Sodium [Moles/Vol] 140 mmol/L 136 - 144 mmol/L [facility] Urea nitrogen [Mass/Vol] 40 mg/dL High 9 - 24 mg/dL [facility] NT PRO BNPon 10-26-2022 Natriuretic peptide.B prohormone N-Terminal [Mass/Vol] 5553 pg/mL High <450 pg/mL [facility] CBC W Auto Differential pane l (Bld)on 10-25-2022 Basophils (Bld) [#/Vol] <0.11 k/uL [facility] Basophils/100 WBC (Bld) 0.3 % [facility] Differential cell count method Nom (Bld) Auto [facility] Eosinophils (Bld) [#/Vol] 0.20 10*3/uL <0.46 k/uL [facility] Eosinophils/100 WBC (Bld) 2.7 % [facility] Erythrocyte distribution width (RBC) [Ratio] 13.6 % 11.5 - 15.0 % [facility] Hematocrit (Bld) [Volume fraction] 47.3 % 39.0 - 51.0 % [facility] Hemoglobin (Bld) [Mass/Vol] 14.6 g/dL 13.0 - 17.0 g/dL [facility] Immature granulocytes (Bld) [#/Vol] <0.10 k/uL [facility] Immature granulocytes/100 WBC (Bld) 0.3 % [facility] Lymphocytes (Bld) [#/Vol] 1.40 10*3/uL 1.00 - 4.00 k/uL [facility] Lymphocytes/100 WBC (Bld) 19.0 % [facility] MCH (RBC) [Entitic mass] 29.1 pg 26.0 - 34.0 pg [facility] MCHC (RBC) [Mass/Vol] 30.9 g/dL 30.5 - 36.0 g/dL [facility] MCV (RBC) [Entitic vol] 94.2 fL 80.0 - 100.0 fL [facility] Monocytes (Bld) [#/Vol] 0.65 10*3/uL <0.87 k/uL [facility] Monocytes/100 WBC (Bld) 8.8 % [facility] Neutrophils (Bld) [#/Vol] 5.06 10*3/uL 1.45 - 7.50 k/uL [facility] Neutrophils/100 WBC (Bld) 68.9 % [facility] Nucleated RBC (Bld) [#/Vol] <0.01 k/uL [facility] Nucleated RBC/100 WBC (Bld) [Ratio] 0.0 /100 WBC [facility] Platelet mean volume (Bld) [Entitic vol] 10.7 fL 9.0 - 12.7 fL [facility] Platelets (Bld) [#/Vol] 159 10*3/uL 150 - 400 k/uL [facility] RBC (Bld) [#/Vol] 5.02 10*6/uL 4.20 - 6.0 0 m/uL [facility] WBC (Bld) [#/Vol] 7.35 10*3/uL 3.70 - 11. 00 k/uL [facility] GLUCOSE, BLOOD (POC)on 10-25 Glucose [Mass/Vol] 94 mg/dL 74 - 99 mg/dL [facility] Glucose [Mass/Vol] 101 mg/dL Abnormal 74 - 99 mg/dL [facility] No Panel Informationon 10-25 [facility] BNPon 08-30-2022 Natriuretic peptide B (Bld) [Mass/Vol] 5149.0 pg/mL Critically high <=1,800.0 [facility] Comment on above: Performed By: #### B MP, BNP #### [facility] [address] [address] [address] Silva Burnett PROF CHEM 8 (BAS METB)on Anion gap [Moles/Vol] 9.3 mmol/L Normal [facility] Comment on above: Performed By: #### B MP, BNP #### [facility] [address] [address] [address] Silva Burnett Calcium [Mass/Vol] 9.5 mg/dL Normal 8.5-10.1 [facility] Comment on above: Performed By: #### B MP, BNP #### [facility] [address] [place] [address] Dr. Silva Burnett Chloride [Moles/Vol] 103 mmol/L Normal 98-107 [facility] Comment on above: Performed By: #### B MP, BNP #### [facility] [address] [place] [address] Dr. Silva Burnett CO2 [Moles/Vol] 30.2 mmol/L Normal 21.0-32.0 [facility] Comment on above: Performed By: #### B MP, BNP #### [facility] [address] [place] [address] Dr. Silva Burnett Creatinine [Mass/Vol] 1.86 mg/dL Critically high 0.70-1.30 [facility] Comment on above: Performed By: #### B MP, BNP #### [facility] [address] [place] [address] Dr. Silva Burnett EGFR-AF LIBYAN 43 mL/min/1.73m2 Critically low >=60 [facility] Comment on above: Performed By: #### B MP, BNP #### [facility] [address] [place] [address] Dr. Silva Burnett EGFR-NON AF LIBYAN 35 mL/min/1.73m2 Critically low >=60 [facility] Comment on above: Performed By: #### B MP, BNP #### [facility] [address] [place] [address] Dr. Silva Burnett Glucose [Mass/Vol] 108 mg/dL Critically high 74-106 [facility] Comment on above: Performed By: #### B MP, BNP #### [facility] [address] [place] [address] Dr. Silva Burnett Potassium [Moles/Vol] 4.5 mmol/L Normal 3.5-5.1 [facility] Comment on above: Performed By: #### B MP, BNP #### [facility] [address] [place] [address] Dr. Silva Burnett Sodium [Moles/Vol] 138 mmol/L Normal 136-145 [facility] Comment on above: Performed By: #### B MP, BNP #### [facility] [address] [address] [address] Silva Burnett Urea nitrogen [Mass/Vol] 27.0 mg/dL Critically high 7.0-18.0 [facility] Comment on above: Performed By: #### B MP, BNP #### [facility] [address] [address] [address] Silva Burnett Urea nitrogen/Creatinine [Mass ratio] 14.5 mg/mg Normal [facility] Comment on above: Performed By: #### B MP, BNP #### [facility] [address] [place] [address] Dr. Silva Burnett ICD REMOTE CHECKon 2 AV Delay Adaptive Paced Minimum (ms) 200 ms [facility] AV Delay Adaptive Sensed Minimum (ms) 170 ms [facility] Bj RA Pacing Amplitude (volts) 2 V [facility] Bj RA Pacing Polarity BI [facility] Bj RA Pacing Pulse Width (ms) 0.5 ms [facility] Bj RA Sensing Amplitude (mvolts) 0.25 mV [facility] Bj RA Sensing Polarity BI [facility] Bj RV Pacing Amplitude (volts) 2 V [facility] Bj RV Pacing Polarity BI [facility] Bj RV Pacing Pulse Width (ms) 0.5 ms [facility] Bj RV Sensing Amplitude (mvolts) 0.3 mV [facility] Bj RV Sensing Polarity BI [facility] Detection Configuration (Vent) 2 - Zone [facility] FastVT_Detection Interval 250 ms [facility] FastVT_Therapy Configuration 1 ATP(s) + 8 Shock(s) [facility] ICD FastVT DetectionStatus ENABLED [facility] ICD-AMS EPISODES 170 {beats}/min [facility] ICD-ATP Episodes (Vent) 0 [facility] ICD-ATRIALFIBRILLAT ION 0 [facility] ICD-ATRIALTACHYCARD IA 1 [facility] ICD-Device Mfg BSX [facility] ICD-Fast Ventricular Tachycardia 1 [facility] ICD-LEADIMPEDANCEAT RIAL 743 ohm [facility] ICD-Percent Pacing (Atrial) 0 % [facility] ICD-Percent Pacing (Vent) 0 % [facility] ICD-Shocks Aborted (Vent) 0 [facility] [id number] D 0 [facility] ICD-SHOCKSABORTED 0 [facility] ICD-SHOCKSDELIVERED VENTRICULAR 0 [facility] ICD-Ventricular Fibrillation 0 [facility] Lead Impedance (RV) 431 ohm [facility] Lead Impedance High Voltage 48 ohm [facility] Lead1 Mfg BSX [facility] Lead2 Mfg BSX [facility] Location RV [facility] Location RA [facility] Lower Rate (bpm) 50 {beats}/min [facility] Max Sensor Rate (bpm) 130 {beats}/min [facility] MDT_PROG_TACHY_ZONE _DETECTIONS_STATUS ENABLED [facility] Model D142 INOGEN [facility] Model [address] [place] 4[address]Front [facility] Model 7741 Ingevity MRI [facility] Pacing Mode DDDR [facility] Serial Number [id number] [facility] Serial Number [id number] [facility] Serial Number [id number] [facility] Test Charge Energy 23 J [facility] Test Charge Time 10.1 s [facility] Therapy Status (Vent) Enabled [facility] Thresh RA Capture Amplitude (volts) 0.6 V [facility] Thresh RA Capture Duration (ms) 0.5 ms [facility] Thresh RV Capture Amplitude (VOLTS) 0.5 V [facility] Thresh RV Capture Duration (MS) 0.5 ms [facility] Tracking Rate (bpm) 130 {beats}/min [facility] VF Zone Detection Interval 250 ms [facility] VF Zone Therapy Configuration 1 ATP(s) + 8 Shock(s) [facility] No Panel Informationon 08-07 BLANK _ [facility] ICD-ATRIALTACHYCARD IA 0 [facility] ICD-Fast Ventricular Tachycardia 0 [facility] Implant Date 03/24/2019 [facility] BNPon 07-23-2022 Natriuretic peptide B (Bld) [Mass/Vol] 5638.0 pg/mL Critically high <=1,800.0 [facility] Comment on above: Performed By: #### B MP, BNP, LIPID #### [facility] [address] [place] [address] Dr. Silva Burnett LIPID PROFILEon 07-23-2022 CHOL-HDL RATIO NORM SEE BELOW Normal [facility] Comment on above: Result Comment: 3.3 - 4.4 LOW RISK 4.4 - 7.1 AVERAGE RISK 7.1 - 11.0 MODERATE RISK >11.0 HIGH RISK Performed By: #### B MP, BNP, LIPID #### [facility] [address] [address] [address] Silva Burnett Cholesterol [Mass/Vol] 126 mg/dL Normal <=200 [facility] Comment on above: Performed By: #### B MP, BNP, LIPID #### [facility] [address] [address] [address] Silva Burnett Cholesterol in HDL [Mass/Vol] 51 mg/dL Normal 40-60 [facility] Comment on above: Performed By: #### B MP, BNP, LIPID #### [facility] [address] [address] [address] Silva Burnett Cholesterol in LDL [Mass/Vol] 61.4 mg/dL Normal [facility] Comment on above: Performed By: #### B MP, BNP, LIPID #### [facility] [address] [address] [address] Silva Burnett Cholesterol.total/C holesterol in HDL [Mass ratio] 2.5 {ratio} Normal [facility] Comment on above: Performed By: #### B MP, BNP, LIPID #### [facility] [address] [address] [address] Silva Burnett HDL NORMAL > or = 60 mg/dl - LO W CARDIOVASCULAR RISK <40 mg/dl - HIGH CARDIOVASCULAR RISK Normal [facility] Comment on above: Performed By: #### B MP, BNP, LIPID #### [facility] [address] [address] [address] Silva Burnett LDL CALC NORMAL SEE BELOW Normal [facility] Comment on above: Result Comment: <100 mg/dl OPTIMAL 100 - 129 mg/dl NEAR OR ABOVE OPTIMAL 130 - 159 mg/dl BORDERLINE HIGH 160 - 189 mg/dl HIGH >190 mg/dl VERY HIGH Performed By: #### B MP, BNP, LIPID #### [facility] [address] [address] [address] Silva Burnett Triglyceride [Mass/Vol] 68 mg/dL Normal <=150 [facility] Comment on above: Performed By: #### B MP, BNP, LIPID #### [facility] [address] [place] [address] Dr. Silva Burnett VLDL CALC 13.6 mg/dL Normal [facility] Comment on above: Performed By: #### B MP, BNP, LIPID #### [facility] [address] [place] [address] Dr. Silva Burnett PROF CHEM 8 (BAS METB)on Anion gap [Moles/Vol] 10.2 mmol/L Normal [facility] Comment on above: Performed By: #### B MP, BNP, LIPID #### [facility] [address] [place] [address] Dr. Silva Burnett Calcium [Mass/Vol] 9.3 mg/dL Normal 8.5-10.1 [facility] Comment on above: Performed By: #### B MP, BNP, LIPID #### [facility] [address] [place] [address] Dr. Silva Burnett Chloride [Moles/Vol] 102 mmol/L Normal 98-107 [facility] Comment on above: Performed By: #### B MP, BNP, LIPID #### [facility] [address] [place] [address] Dr. Silva Burnett CO2 [Moles/Vol] 29.7 mmol/L Normal 21.0-32.0 [facility] Comment on above: Performed By: #### B MP, BNP, LIPID #### [facility] [address] [place] [address] Dr. Silva Burnett Creatinine [Mass/Vol] 1.68 mg/dL Critically high 0.70-1.30 [facility] Comment on above: Performed By: #### B MP, BNP, LIPID #### [facility] [address] [place] [address] Dr. Silva Burnett EGFR-AF LIBYAN 48 mL/min/1.73m2 Critically low >=60 [facility] Comment on above: Performed By: #### B MP, BNP, LIPID #### [facility] [address] [address] [address] Silva Burnett EGFR-NON AF LIBYAN 40 mL/min/1.73m2 Critically low >=60 [facility] Comment on above: Performed By: #### B MP, BNP, LIPID #### [facility] [address] [address] [address] Silva Burnett Glucose [Mass/Vol] 97 mg/dL Normal 74-106 [facility] Comment on above: Performed By: #### B MP, BNP, LIPID #### [facility] [address] [address] [address] Silva Burnett Potassium [Moles/Vol] 3.9 mmol/L Normal 3.5-5.1 [facility] Comment on above: Performed By: #### B MP, BNP, LIPID #### [facility] [address] [address] [address] Silva Burnett Sodium [Moles/Vol] 138 mmol/L Normal 136-145 [facility] Comment on above: Performed By: #### B MP, BNP, LIPID #### [facility] [address] [address] [address] Silva Burnett Urea nitrogen [Mass/Vol] 28.0 mg/dL Critically high 7.0-18.0 [facility] Comment on above: Performed By: #### B MP, BNP, LIPID #### [facility] [address] [address] [address] Silva Burnett Urea nitrogen/Creatinine [Mass ratio] 16.7 mg/mg Normal [facility] Comment on above: Performed By: #### B MP, BNP, LIPID #### [facility] [address] [address] [address] Silva Burnett FREE T3on 07-18-2022 FREE T3 3.48 pg/mlL Normal 2.18-3.98 [facility] Comment on above: Performed By: #### V ITAD #### [facility] [address] [address] [address] Silva Burnett FREE T4on 07-18-2022 Free T4 [Mass/Vol] 0.76 ng/dL Normal 0.76-1.46 [facility] Comment on above: Performed By: #### F T4 #### [facility] [address] [place] [address] Dr. Silva Burnett TSHon 07-18-2022 TSH 0.074 uIU/mL Critically low 0.358-3.740 [facility] Comment on above: Performed By: #### V ITAD #### [facility] [address] [place] [address] Dr. Silva Burnett TESTOSTERONE, FREE,DIRECT, T OTALon 07-02-2022 Free Testosterone(Direct ) 1.2 pg/mL Critically low 6.6-18.1 [facility] Comment on above: Result Comment: Perf ormed at: BN Performed By: #### B MP, BNP #### [facility] [address] [place] [address] Dr. Silva Burnett Testosterone [Mass/Vol] 103 ng/dL Critically low 264-916 [facility] Comment on above: Result Comment: Adul t male reference interval is based on a population of healthy nonobese males (BMI <30) between 19 and 39 years old. Keisha, et.al. JCEM 2017,102;[id number]. PMID: [id number]. Performed at: CB Performed By: #### B MP, BNP #### [facility] [address] [place] [address] Dr. Silva Burnett CORTISOLon 06-29-2022 Cortisol 9.8 ug/dL Normal [facility] Comment on above: Result Comment: Dale isol AM 6.2 - 19.4 Cortisol PM 2.3 - 11.9 Performed By: #### B MP, BNP #### [facility] [address] [place] [address] Dr. Silva Burnett BNPon 06-27-2022 Natriuretic peptide B (Bld) [Mass/Vol] 5384.0 pg/mL Critically high <=1,800.0 [facility] Comment on above: Performed By: #### B MP, BNP #### [facility] [address] [place] [address] Dr. Silva Burnett CBC AUTO DIFFon 06-27-2022 BASO # 0.0 103/ul Normal 0.0-0.1 [facility] Comment on above: Performed By: #### B MP, BNP #### [facility] [address] [place] [address] Dr. Silva Burnett Basophils/100 WBC (Bld) 0.6 % Normal 0.2-2.0 [facility] Comment on above: Performed By: #### B MP, BNP #### [facility] [address] [place] [address] Dr. Silva Burnett EO # 0.4 103/ul Normal 0.0-0.7 [facility] Comment on above: Performed By: #### B MP, BNP #### [facility] [address] [place] [address] Dr. Silva Burnett Eosinophils/100 WBC (Bld) 8.0 % Critically high 0.9-7.0 [facility] Comment on above: Performed By: #### B MP, BNP #### [facility] [address] [place] [address] Dr. Silva Burnett Erythrocyte distribution width (RBC) [Ratio] 15.3 % Critically high 11.0-15.0 [facility] Comment on above: Performed By: #### B MP, BNP #### [facility] [address] [place] [address] Dr. Silva Burnett Hematocrit (Bld) [Volume fraction] 41.0 % Critically low 42.0-54.0 [facility] Comment on above: Performed By: #### B MP, BNP #### [facility] [address] [place] [address] Dr. Silva Burnett Hemoglobin (Bld) [Mass/Vol] 12.8 g/dL Critically low 14.0-18.0 [facility] Comment on above: Performed By: #### B MP, BNP #### [facility] [address] [place] [address] Dr. Silva Burnett IG # 0.02 10e3/ul Normal 0.00-0.03 [facility] Comment on above: Performed By: #### B MP, BNP #### [facility] [address] [place] [address] Dr. Silva Burnett IG % 0.4 % Normal 0.0-0.5 [facility] Comment on above: Performed By: #### B MP, BNP #### [facility] [address] [place] [address] Dr. Silva Burnett LYMPH # 1.3 103/ul Normal 1.2-3.8 [facility] Comment on above: Performed By: #### B MP, BNP #### [facility] [address] [place] [address] Dr. Silva Burnett Lymphocytes/100 WBC (Bld) 25.8 % Normal 20.5-60.0 [facility] Comment on above: Performed By: #### B MP, BNP #### [facility] [address] [place] [address] Dr. Silva Burnett MANUAL DIFF REQ NO Normal [facility] Comment on above: Performed By: #### B MP, BNP #### [facility] [address] [place] [address] Dr. Silva Burnett MCH (RBC) [Entitic mass] 28.9 pg Normal 25.9-34.0 [facility] Comment on above: Performed By: #### B MP, BNP #### [facility] [address] [place] [address] Dr. Silva Burnett MCHC (RBC) [Mass/Vol] 31.2 g/dL Normal 29.9-35.2 [facility] Comment on above: Performed By: #### B MP, BNP #### [facility] [address] [place] [address] Dr. Silva Burnett MCV (RBC) [Entitic vol] 92.6 fL Normal 80.0-94.0 [facility] Comment on above: Performed By: #### B MP, BNP #### [facility] [facility] [address] [place] [address] Dr. Silva Burnett MONO # 0.6 103/ul Normal 0.3-0.8 [facility] Comment on above: Performed By: #### B MP, BNP #### [facility] [address] [address] [address] Silva Burnett Monocytes/100 WBC (Bld) 11.1 % Normal 1.7-12.0 [facility] Comment on above: Performed By: #### B MP, BNP #### [facility] [address] [place] [address] Dr. Silva Burnett NEUT # 2.8 103/ul Normal 1.4-6.5 [facility] Comment on above: Performed By: #### B MP, BNP #### [facility] [address] [place] [address] Dr. Silva Burnett Neutrophils/100 WBC (Bld) 54.1 % Normal 43.0-75.0 [facility] Comment on above: Performed By: #### B MP, BNP #### [facility] [address] [place] [address] Dr. Silva Burnett Platelet mean volume (Bld) [Entitic vol] 10.0 fL Normal 9.5-13.5 [facility] Comment on above: Performed By: #### B MP, BNP #### [facility] [address] [place] [address] Dr. Silva Burnett PLT 144 103/ul Critically low 150-450 [facility] Comment on above: Performed By: #### B MP, BNP #### [facility] [address] [place] [address] Dr. Silva Burnett RBC 4.43 106/ul Critically low 4.70-6.10 [facility] Comment on above: Performed By: #### B MP, BNP #### [facility] [address] [place] [address] Dr. Silva Burnett WBC 5.1 103/ul Normal 4.0-11.0 [facility] Comment on above: Performed By: #### B MP, BNP #### [facility] [address] [place] [address] Dr. Silva Burnett PROF CHEM 8 (BAS METB)on Anion gap [Moles/Vol] 10.2 mmol/L Normal [facility] Comment on above: Performed By: #### B MP, BNP #### [facility] [address] [place] [address] Dr. Silva Burnett Calcium [Mass/Vol] 8.9 mg/dL Normal 8.5-10.1 [facility] Comment on above: Performed By: #### B MP, BNP #### [facility] [address] [place] [address] Dr. Silva Burnett Chloride [Moles/Vol] 104 mmol/L Normal 98-107 [facility] Comment on above: Performed By: #### B MP, BNP #### [facility] [address] [place] [address] Dr. Silva Burnett CO2 [Moles/Vol] 27.1 mmol/L Normal 21.0-32.0 [facility] Comment on above: Performed By: #### B MP, BNP #### [facility] [address] [place] [address] Dr. Silva Burnett Creatinine [Mass/Vol] 1.61 mg/dL Critically high 0.70-1.30 [facility] Comment on above: Performed By: #### B MP, BNP #### [facility] [address] [place] [address] Dr. Silva Burnett EGFR-AF LIBYAN 50 mL/min/1.73m2 Critically low >=60 [facility] Comment on above: Performed By: #### B MP, BNP #### [facility] [address] [place] [address] Dr. Silva Burnett EGFR-NON AF LIBYAN 41 mL/min/1.73m2 Critically low >=60 [facility] Comment on above: Performed By: #### B MP, BNP #### [facility] [address] [place] [address] Dr. Silva Burnett Glucose [Mass/Vol] 89 mg/dL Normal 74-106 [facility] Comment on above: Performed By: #### B MP, BNP #### [facility] [address] [place] [address] Dr. Silva Burnett Potassium [Moles/Vol] 4.3 mmol/L Normal 3.5-5.1 [facility] Comment on above: Performed By: #### B MP, BNP #### [facility] [address] [place] [address] Dr. Silva Burnett Sodium [Moles/Vol] 137 mmol/L Normal 136-145 [facility] Comment on above: Performed By: #### B MP, BNP #### [facility] [address] [place] [address] Dr. Silva Burnett Urea nitrogen [Mass/Vol] 28.0 mg/dL Critically high 7.0-18.0 [facility] Comment on above: Performed By: #### B MP, BNP #### [facility] [address] [place] [address] Dr. Silva Burnett Urea nitrogen/Creatinine [Mass ratio] 17.4 mg/mg Normal [facility] Comment on above: Performed By: #### B MP, BNP #### [facility] [address] [place] [address] Dr. Silva Burnett VITAMIN D 25 OHon 06-27-2022 VIT D 25-OH 85.2 ng/mL Normal [facility] Comment on above: Performed By: #### V ITAD #### [facility] [address] [place] [address] Dr. Silva Burnett VIT D RANGES SEE BELOW Normal [facility] Comment on above: Result Comment: <20 ng/mL Vit D deficient 20 - <30 ng/mL Vit D insufficient 30 - 100 ng/mL Vit D sufficient >100 ng/mL Potential Toxicity Performed By: #### V ITAD #### [facility] [address] [place] [address] Dr. Silva Burnett CREATININEon 06-14-2022 Creatinine [Mass/Vol] 1.71 mg/dL Critically high 0.70-1.30 [facility] Comment on above: Performed By: #### B MP, BNP #### [facility] [address] [place] [address] Dr. Silva Burnett EGFR-AF LIBYAN 47 mL/min/1.73m2 Critically low >=60 [facility] Comment on above: Performed By: #### B MP, BNP #### [facility] [address] [place], [place] [address] Dr. Silva Burnett EGFR-NON AF LIBYAN 39 mL/min/1.73m2 Critically low >=60 [facility] Comment on above: Performed By: #### B MP, BNP #### [facility] [address] [place], [place] [address] Dr. Silva Burnett CTA NECK WO W [...] AYANA FERNANDEZ Date: 2022-06-14 16:39 Normal [facility] BASIC METABOLIC PANELon 09-0 Calcium [Mass/Vol] 8.8 mg/dL Normal 8.6-10.3 [facility] Comment on above: Order Comment: No: D o not add to previous draw Performed By: #### 2 2158, 09689, 41329, 49215, 92480, 38505 #### [facility] [address] [place] [address], [facility] Chloride [Moles/Vol] 103 mmol/L Normal 98-107 [facility] Comment on above: Order Comment: No: D o not add to previous draw Performed By: #### 2 5508, 63598, 86159, 72040, 88257, 48624 #### [facility] [address] [place] [address], [facility] CO2 [Moles/Vol] 28 mmol/L Normal 21-31 [facility] Comment on above: Order Comment: No: D o not add to previous draw Performed By: #### 2 5508, 78499, 46109, 13868, 77880, 36097 #### [facility] [address] [place] [address], [facility] Creatinine [Mass/Vol] 1.47 mg/dL High 0.70-1.30 [facility] Comment on above: Order Comment: No: D o not add to previous draw Performed By: #### 2 5508, 00390, 21042, 74402, 03668, 99464 #### [facility] [address] [place] [address], [facility] EGFR 48 ml/min/1.73sq m Abnormal >60 [facility] Comment on above: Order Comment: No: D o not add to previous draw Result Comment: [facility]'s estimated glomerular filtration rate (eGFR) will no [...] of individuals. Performed By: #### 2 5508, 55378, 69400, 04340, 26414, 20772 #### [facility] [address] [place] [address], [place] Glucose [Mass/Vol] 110 mg/dL High 70-100 [facility] Comment on above: Order Comment: No: D o not add to previous draw Performed By: #### 2 5508, 97848, 25534, 32256, 01019, 30729 #### [facility] [address] [place] [address], [facility] Potassium [Moles/Vol] 4.3 mmol/L Normal 3.5-5.1 [facility] Comment on above: Order Comment: No: D o not add to previous draw Performed By: #### 2 5508, 59957, 45094, 08324, 79232, 90914 #### [facility] [address] [place] [address], [place] Sodium [Moles/Vol] 136 mmol/L Normal 136-145 [facility] Comment on above: Order Comment: No: D o not add to previous draw Performed By: #### 2 5508, 10065, 79970, 01228, 77860, 96603 #### [facility] [address] [place] [address], [place] Urea nitrogen [Mass/Vol] 35 mg/dL High 7-25 [facility] Comment on above: Order Comment: No: D o not add to previous draw Performed By: #### 2 5508, 93750, 55529, 44766, 87702, 83233 #### [facility] [address] [place] [address], [place] MAGNESIUM BLOODon 05-23-2022 Magnesium [Mass/Vol] 2.2 mg/dL Normal 1.9-2.7 [facility] Comment on above: Order Comment: No: D o not add to previous draw Performed By: #### 2 5508, 15761, 21115, 03335, 17593, 60680 #### [facility] [address] APTTon 05-22-2022 aPTT Coag (Bld) [Time] 28.0 s Normal 25.0-35.0 [facility] Comment on above: Order Comment: No: D [...] THIS PURPOSE. Performed By: #### 2 5508, 90865, 06828, 08303, 84948, 29019 #### [facility] [address] [place] [address], [facility] BASIC METABOLIC PANELon Calcium [Mass/Vol] 9.0 mg/dL Normal 8.6-10.3 [facility] Comment on above: Order Comment: No: D o not add to previous draw Performed By: #### 2 5508, 09451, 86695, 95014, 39550, 35968 #### [facility] [address] [facility] [place] [address], [facility] Chloride [Moles/Vol] 101 mmol/L Normal 98-107 [facility] Comment on above: Order Comment: No: D o not add to previous draw Performed By: #### 2 5508, 03539, 85901, 03607, 62318, 57967 #### [facility] [address] [place] [address], [place] CO2 [Moles/Vol] 29 mmol/L Normal 21-31 [facility] Comment on above: Order Comment: No: D o not add to previous draw Performed By: #### 2 5508, 30787, 64288, 78423, 54452, 62287 #### [facility] [address] [place] [address], [place] Creatinine [Mass/Vol] 1.67 mg/dL High 0.70-1.30 [facility] Comment on above: Order Comment: No: D o not add to previous draw Performed By: #### 2 5508, 67173, 28681, 03245, 75072, 82267 #### [facility] [address] [place] [address], [facility] EGFR 41 ml/min/1.73sq m Abnormal >60 [facility] Comment on above: Order Comment: No: D o not add to previous draw Result Comment: [facility]'s estimated glomerular filtration rate (eGFR) will no [...] of individuals. Performed By: #### 2 5508, 11637, 86543, 96189, 96305, 55681 #### [facility] [address] [place] [id number], [facility] Glucose [Mass/Vol] 94 mg/dL Normal 70-100 [facility] Comment on above: Order Comment: No: D o not add to previous draw Performed By: #### 2 5508, 16961, 82951, 41324, 64887, 86631 #### [facility] [address] [place] [address], [place] Potassium [Moles/Vol] 4.8 mmol/L Normal 3.5-5.1 [facility] Comment on above: Order Comment: No: D o not add to previous draw Performed By: #### 2 5508, 00972, 99493, 65894, 89483, 59259 #### [facility] [address] [place] [address], [place] Sodium [Moles/Vol] 136 mmol/L Normal 136-145 [facility] Comment on above: Order Comment: No: D o not add to previous draw Performed By: #### 2 5508, 77952, 16026, 71711, 87461, 03604 #### [facility] [address] [place] [address], [facility] Urea nitrogen [Mass/Vol] 39 mg/dL High 7-25 [facility] Comment on above: Order Comment: No: D o not add to previous draw Performed By: #### 2 5508, 28434, 46875, 67658, 64535, 03197 #### [facility] [address] [place] [address], [facility] MAGNESIUM BLOODon 05-22-2022 Magnesium [Mass/Vol] 1.8 mg/dL Low 1.9-2.7 [facility] Comment on above: Order Comment: No: D o not add to previous draw Performed By: #### 2 5508, 29784, 96838, 72648, 03034, 55029 #### [facility] [address] [place] [address], [facility] APTTon 05-21-2022 aPTT Coag (Bld) [Time] 30.8 s Normal 25.0-35.0 [facility] Comment on above: Order Comment: No: D [...] THIS PURPOSE. Performed By: #### 2 5508, 09020, 15547, 53570, 89949, 83643 #### [facility] [address] [place] [address], [facility] BASIC METABOLIC PANELon Calcium [Mass/Vol] 8.8 mg/dL Normal 8.6-10.3 [facility] Comment on above: Order Comment: No: D o not add to previous draw Performed By: #### 2 5508, 84833, 34497, 48625, 05754, 47832 #### [facility] [address] [place] [address], [facility] Chloride [Moles/Vol] 103 mmol/L Normal 98-107 [facility] Comment on above: Order Comment: No: D o not add to previous draw Performed By: #### 2 5508, 73583, 02760, 69011, 52140, 16876 #### [facility] [address] [place] [id number], [facility] CO2 [Moles/Vol] 26 mmol/L Normal 21-31 [facility] Comment on above: Order Comment: No: D o not add to previous draw Performed By: #### 2 5508, 36256, 62705, 85931, 66372, 43818 #### [facility] [address] [place] [address], [facility] Creatinine [Mass/Vol] 1.47 mg/dL High 0.70-1.30 [facility] Comment on above: Order Comment: No: D o not add to previous draw Performed By: #### 2 5508, 04061, 28694, 08882, 91684, 46210 #### [facility] [address] [place] [address], [facility] EGFR 48 ml/min/1.73sq m Abnormal >60 [facility] Comment on above: Order Comment: No: D o not add to previous draw Result Comment: [facility]'s estimated glomerular filtration rate (eGFR) will no [...] of individuals. Performed By: #### 2 5508, 34281, 52012, 50061, 42970, 72094 #### [facility] [address] [place] [address], [place] Glucose [Mass/Vol] 88 mg/dL Normal 70-100 [facility] Comment on above: Order Comment: No: D o not add to previous draw Performed By: #### 2 5508, 48401, 81754, 79763, 84760, 29831 #### [facility] [address] [place] [address], [facility] Potassium [Moles/Vol] 3.9 mmol/L Normal 3.5-5.1 [facility] Comment on above: Order Comment: No: D o not add to previous draw Performed By: #### 2 5508, 64561, 35629, 90084, 15197, 92959 #### [facility] [address] [place] [address], [place] Sodium [Moles/Vol] 137 mmol/L Normal 136-145 [facility] Comment on above: Order Comment: No: D o not add to previous draw Performed By: #### 2 5508, 71968, 19878, 84268, 42812, 86919 #### [facility] [address] [place] [address], [place] Urea nitrogen [Mass/Vol] 45 mg/dL High 7-25 [facility] Comment on above: Order Comment: No: D o not add to previous draw Performed By: #### 2 5508, 52074, 20296, 21387, 65311, 82972 #### [facility] [address] [place] [address], [place] CBC COMPLETE BLOOD COUNTon 0 - Erythrocyte distribution width (RBC) [Ratio] 14.4 % Normal 11.5-15.0 [facility] Comment on above: Order Comment: No: D o not add to previous draw Performed By: #### 2 5508, 32134, 68910, 69456, 16849, 34324 #### [facility] [address] [place] [address], [facility] Hematocrit (Bld) [Volume fraction] 40.8 % Normal 39.0-50.0 [facility] Comment on above: Order Comment: No: D o not add to previous draw Performed By: #### 2 5508, 17593, 18673, 84404, 52181, 34338 #### [facility] [address] [place] [address], [facility] Hemoglobin (Bld) [Mass/Vol] 13.3 g/dL Normal 13.0-17.0 [facility] Comment on above: Order Comment: No: D o not add to previous draw Performed By: #### 2 5508, 19290, 58359, 58208, 75473, 21132 #### [facility] [address] [place] [address], [facility] MCH (RBC) [Entitic mass] 28.4 pg Normal 27.0-33.0 [facility] Comment on above: Order Comment: No: D o not add to previous draw Performed By: #### 2 5508, 45393, 94012, 76798, 01075, 47135 #### [facility] [address] [place] [address], [facility] MCHC (RBC) [Mass/Vol] 32.6 g/dL Normal 32.0-35.0 [facility] Comment on above: Order Comment: No: D o not add to previous draw Performed By: #### 2 5508, 16765, 73089, 19322, 57020, 43507 #### [facility] [address] [place] [address], [facility] MCV (RBC) [Entitic vol] 87.0 fL Normal 82.0-98.0 [facility] Comment on above: Order Comment: No: D o not add to previous draw Performed By: #### 2 5508, 27322, 44580, 20194, 35907, 72903 #### [facility] [address] [place] [address], [facility] Nucleated RBC/100 WBC (Bld) [Ratio] 0 % Normal 0-0 [facility] Comment on above: Order Comment: No: D o not add to previous draw Performed By: #### 2 5508, 80412, 56674, 69269, 30624, 44064 #### [facility] [address] [facility] [place] [address], [facility] PLAT CNT 157 10*3/uL Normal 150-400 [facility] Comment on above: Order Comment: No: D o not add to previous draw Performed By: #### 2 5508, 35722, 34826, 11166, 48139, 02289 #### [facility] [address] [facility] [place] [address], [facility] RBC (Bld) [#/Vol] 4.69 10*6/uL Normal 4.20-5.70 [facility] Comment on above: Order Comment: No: D o not add to previous draw Performed By: #### 2 5508, 86905, 90186, 56776, 59430, 26365 #### [facility] [address] [facility] [place] [address], [facility] WBC (Bld) [#/Vol] 6.19 10*3/uL Normal 4.00-10.60 [facility] Comment on above: Order Comment: No: D o not add to previous draw Performed By: #### 2 5508, 54336, 88792, 41969, 15159, 27221 #### [facility] [address] [place] [address], [facility] MAGNESIUM BLOODon 05-21-2022 Magnesium [Mass/Vol] 1.9 mg/dL Normal 1.9-2.7 [facility] Comment on above: Order Comment: No: D o not add to previous draw Performed By: #### 2 5508, 22828, 95054, 99772, 81663, 24820 #### [facility] [address] [place] [id number], [facility] APTTon 05-20-2022 aPTT Coag (Bld) [Time] 28.4 s Normal 25.0-35.0 [facility] Comment on above: Order Comment: No: D [...] THIS PURPOSE. Performed By: #### 2 5508, 33163, 35165, 44149, 67323, 56973 #### [facility] [address] [place] [address], [facility] BASIC METABOLIC PANELon Calcium [Mass/Vol] 9.0 mg/dL Normal 8.6-10.3 [facility] Comment on above: Order Comment: No: D o not add to previous draw Performed By: #### 1 0070, 17623, 73873 #### [facility] [address] [place] [address], [facility] Chloride [Moles/Vol] 105 mmol/L Normal 98-107 [facility] Comment on above: Order Comment: No: D o not add to previous draw Performed By: #### 1 0070, 76326, 64048 #### [facility] [address] [place] [address], [place] CO2 [Moles/Vol] 26 mmol/L Normal 21-31 [facility] Comment on above: Order Comment: No: D o not add to previous draw Performed By: #### 1 0070, 63066, 32679 #### [facility] [address] [place] [address], [facility] Creatinine [Mass/Vol] 1.42 mg/dL High 0.70-1.30 [facility] Comment on above: Order Comment: No: D o not add to previous draw Performed By: #### 1 0, 40591, 52403 #### [facility] [address] [place] [address], [facility] EGFR 50 ml/min/1.73sq m Abnormal >60 [facility] Comment on above: Order Comment: No: D o not add to previous draw Result Comment: [facility]'s estimated glomerular filtration rate (eGFR) will no [...] group of individuals. Performed By: #### 1 0, , 41247 #### [facility] [address] [place] [address], [facility] Glucose [Mass/Vol] 107 mg/dL High 70-100 [facility] Comment on above: Order Comment: No: D o not add to previous draw Performed By: #### 1 0, 43615, 89431 #### [facility] [address] [place] [address], [facility] Potassium [Moles/Vol] 3.9 mmol/L Normal 3.5-5.1 [facility] Comment on above: Order Comment: No: D o not add to previous draw Performed By: #### 1 0, 13415, 64701 #### [facility] [address] [place] [address], [place] Sodium [Moles/Vol] 139 mmol/L Normal 136-145 [facility] Comment on above: Order Comment: No: D o not add to previous draw Performed By: #### 1 0070, 03026, 23583 #### [facility] [address] [place] [address], [facility] Urea nitrogen [Mass/Vol] 50 mg/dL High 7-25 [facility] Comment on above: Order Comment: No: D o not add to previous draw Performed By: #### 1 0070, 22892, 06717 #### [facility] [address] [place] [address], [facility] CBC COMPLETE BLOOD COUNTon 0 05-20-2022 Erythrocyte distribution width (RBC) [Ratio] 14.3 % Normal 11.5-15.0 [facility] Comment on above: Order Comment: No: D o not add to previous draw Performed By: #### 2 5508, 92358, 44084, 59460, 22220, 71585 #### [facility] [address] [place] [address], [facility] Hematocrit (Bld) [Volume fraction] 44.1 % Normal 39.0-50.0 [facility] Comment on above: Order Comment: No: D o not add to previous draw Performed By: #### 2 5508, 21796, 56250, 44871, 77365, 00565 #### [facility] [address] [place] [address], [facility] Hemoglobin (Bld) [Mass/Vol] 14.5 g/dL Normal 13.0-17.0 [facility] Comment on above: Order Comment: No: D o not add to previous draw Performed By: #### 2 5508, 80372, 01473, 28660, 59629, 93528 #### [facility] [address] [place] [address], [place] IMM PLATELET FRAC 5.4 % Normal 0.8-6.3 [facility] Comment on above: Order Comment: No: D o not add to previous draw Performed By: #### 2 5508, 59556, 41721, 59453, 07294, 69923 #### [facility] [address] [place] [address], [facility] MCH (RBC) [Entitic mass] 29.1 pg Normal 27.0-33.0 [facility] Comment on above: Order Comment: No: D o not add to previous draw Performed By: #### 2 5508, 57587, 33889, 16433, 15211, 20840 #### [facility] [address] [place] [address], [facility] MCHC (RBC) [Mass/Vol] 32.9 g/dL Normal 32.0-35.0 [facility] Comment on above: Order Comment: No: D o not add to previous draw Performed By: #### 2 5508, 42922, 32002, 80395, 01414, 90312 #### [facility] [address] [facility] [place] [address], [facility] MCV (RBC) [Entitic vol] 88.6 fL Normal 82.0-98.0 [facility] Comment on above: Order Comment: No: D o not add to previous draw Performed By: #### 2 5508, 10499, 94748, 40078, 06142, 09759 #### [facility] [address] Nucleated RBC/100 WBC (Bld) [Ratio] 0 % Normal 0-0 [facility] Comment on above: Order Comment: No: D o not add to previous draw Performed By: #### 2 5508, 20514, 58016, 22758, 33174, 31472 #### [facility] [address] [facility] [place] [address], [facility] PLAT CNT 138 10*3/uL Low 150-400 [facility] Comment on above: Order Comment: No: D o not add to previous draw Performed By: #### 2 5508, 89055, 03958, 11662, 03985, 43131 #### [facility] [address] [place] [address], [facility] RBC (Bld) [#/Vol] 4.98 10*6/uL Normal 4.20-5.70 [facility] Comment on above: Order Comment: No: D o not add to previous draw Performed By: #### 2 5508, 11572, 19361, 26576, 98007, 34857 #### [facility] [address] [place] [address], [facility] HOSPITAL WBC (Bld) [#/Vol] 5.80 10*3/uL Normal 4.00-10.60 [facility] Comment on above: Order Comment: No: D o not add to previous draw Performed By: #### 2 5508, 65636, 44613, 45678, 02262, 72145 #### [facility] [address] [place] [address], [facility] MAGNESIUM BLOODon 05-20-2022 Magnesium [Mass/Vol] 2.0 mg/dL Normal 1.9-2.7 [facility] Comment on above: Order Comment: No: D o not add to previous draw Performed By: #### 1 0070, 97334, 48929 #### [facility] [address] [place] [address], [facility] PHOSPHORUS BLOODon Phosphate [Mass/Vol] 3.5 mg/dL Normal 2.5-5.0 [facility] Comment on above: Order Comment: No: D o not add to previous draw Performed By: #### 1 0070, 52346, 29871 #### [facility] [address] [place] [id number], [facility] APTTon 05-19-2022 aPTT Coag (Bld) [Time] 30.3 s Normal 25.0-35.0 [facility] Comment on above: Order Comment: No: D [...] THIS PURPOSE. Performed By: #### 2 5508, 14904, 09726, 86747, 16767, 72782 #### [facility] [address] [place] [address], [facility] BASIC METABOLIC PANELon 09-0 -2021 Calcium [Mass/Vol] 8.5 mg/dL Low 8.6-10.3 [facility] Comment on above: Order Comment: No: D o not add to previous draw Performed By: #### 2 5508, 77112, 76378, 27952, 31396, 25599 #### [facility] [address] [place] [id number], [facility] Chloride [Moles/Vol] 104 mmol/L Normal 98-107 [facility] Comment on above: Order Comment: No: D o not add to previous draw Performed By: #### 2 5508, 37889, 93330, 71950, 71870, 53184 #### [facility] [address] [place] [address], [facility] CO2 [Moles/Vol] 24 mmol/L Normal 21-31 [facility] Comment on above: Order Comment: No: D o not add to previous draw Performed By: #### 2 5508, 31739, 03461, 78707, 07649, 63893 #### [facility] [address] [place] [id number], [facility] Creatinine [Mass/Vol] 2.02 mg/dL High 0.70-1.30 [facility] Comment on above: Order Comment: No: D o not add to previous draw Performed By: #### 2 5508, 02902, 91025, 52206, 32230, 36681 #### [facility] [address] EGFR 33 ml/min/1.73sq m Abnormal >60 [facility] Comment on above: Order Comment: No: D o not add to previous draw Result Comment: [facility]'s estimated glomerular filtration rate (eGFR) will no [...] of individuals. Performed By: #### 2 5508, 82961, 63300, 34130, 54113, 87243 #### [facility] [address] Glucose [Mass/Vol] 121 mg/dL High 70-100 [facility] Comment on above: Order Comment: No: D o not add to previous draw Performed By: #### 2 5508, 05569, 33389, 28267, 73760, 31561 #### [facility] [address] [place] [address], [facility] Potassium [Moles/Vol] 3.1 mmol/L Low 3.5-5.1 [facility] Comment on above: Order Comment: No: D o not add to previous draw Performed By: #### 2 5508, 86087, 65538, 60971, 74262, 73049 #### [facility] [address] [place] [id number], [facility] Sodium [Moles/Vol] 137 mmol/L Normal 136-145 [facility] Comment on above: Order Comment: No: D o not add to previous draw Performed By: #### 2 5508, 96557, 81667, 53926, 99964, 71939 #### [facility] [address] Urea nitrogen [Mass/Vol] 61 mg/dL High 7-25 [facility] Comment on above: Order Comment: No: D o not add to previous draw Performed By: #### 2 5508, 07940, 44502, 31759, 97013, 25646 #### [facility] [address] CBC COMPLETE BLOOD COUNTon 0 05-19-2022 Erythrocyte distribution width (RBC) [Ratio] 14.2 % Normal 11.5-15.0 [facility] Comment on above: Order Comment: No: D o not add to previous draw Performed By: #### 2 5508, 42603, 00172, 59965, 98025, 57114 #### [facility] [address] Hematocrit (Bld) [Volume fraction] 41.1 % Normal 39.0-50.0 [facility] Comment on above: Order Comment: No: D o not add to previous draw Performed By: #### 2 5508, 96965, 48393, 87452, 64445, 15257 #### [facility] [address] Hemoglobin (Bld) [Mass/Vol] 13.8 g/dL Normal 13.0-17.0 [facility] Comment on above: Order Comment: No: D o not add to previous draw Performed By: #### 2 5508, 76447, 08676, 11393, 63913, 00513 #### [facility] [address] [place] [address], [facility] IMM PLATELET FRAC 4.8 % Normal 0.8-6.3 [facility] Comment on above: Order Comment: No: D o not add to previous draw Performed By: #### 2 5508, 40073, 15554, 80773, 67270, 99967 #### [facility] [address] MCH (RBC) [Entitic mass] 29.0 pg Normal 27.0-33.0 [facility] Comment on above: Order Comment: No: D o not add to previous draw Performed By: #### 2 5508, 61890, 74160, 05221, 45045, 12366 #### [facility] [address] [place] [address], [facility] MCHC (RBC) [Mass/Vol] 33.6 g/dL Normal 32.0-35.0 [facility] Comment on above: Order Comment: No: D o not add to previous draw Performed By: #### 2 5508, 59831, 07173, 65432, 19115, 16194 #### [facility] [address] [facility] [address], [facility] MCV (RBC) [Entitic vol] 86.3 fL Normal 82.0-98.0 [facility] Comment on above: Order Comment: No: D o not add to previous draw Performed By: #### 2 5508, 31778, 79651, 45558, 11164, 30671 #### [facility] [address] [facility] [place] [address], [facility] Nucleated RBC/100 WBC (Bld) [Ratio] 0 % Normal 0-0 [facility] Comment on above: Order Comment: No: D o not add to previous draw Performed By: #### 2 5508, 00145, 88646, 68473, 94595, 97089 #### [facility] [address] [facility] [place] [address], [facility] PLAT CNT 116 10*3/uL Low 150-400 [facility] Comment on above: Order Comment: No: D o not add to previous draw Performed By: #### 2 5508, 72934, 12045, 83392, 95253, 93356 #### [facility] [address] RBC (Bld) [#/Vol] 4.76 10*6/uL Normal 4.20-5.70 [facility] Comment on above: Order Comment: No: D o not add to previous draw Performed By: #### 2 5508, 29705, 86183, 64279, 02110, 61168 #### [facility] [address] [place] [address], [facility] WBC (Bld) [#/Vol] 5.16 10*3/uL Normal 4.00-10.60 [facility] Comment on above: Order Comment: No: D o not add to previous draw Performed By: #### 2 5508, 98990, 22550, 19171, 68244, 54930 #### [facility] [address] Cardiovascular Lab Reporton 05-19-2022 Cardiovascular Lab Report [facility]: [id number] Department of Physician: Vic Nunes M.D. Division of Service Date: 05/18/2022 Cardiology Birthdate: 1940 Adult Cardiovascular Room #: 4AB [id number] [facility] [address] [place] [address] Cardiovascular Laboratory Report FINAL IMPRESSIONS: 1. 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 2. Two bypass grafts patent; left internal mammary artery graft to the left anterior descending and saphenous vein graft to the obtuse marginal. 3. Robust mztt-mn-rorlt collaterals. 4. Patent left subclavian artery. RECOMMENDATIONS: [...] internal mammary artery graft, placement of a 6-Austrian MynxGrip closure device. METHODS: After risks, benefits, and alternatives were explained, written informed consent was obtained. The patient was prepped and draped in usual sterile fashion over both groins. Using 1% lidocaine solution, local infiltration anesthesia was achieved. Using a modified Seldinger technique and a micropuncture kit and on the ultrasound guidance access to the right common femoral artery was obtained. A 6-Austrian 11 cm sheath was inserted without difficulty. [...] conclude the procedure. All catheters removed. A 6-Austrian MynxGrip closure device was deployed per protocol [...] P/Sonja Hall M.D. Date Trans: 05/19/2022 05:44 A/cornelo [id number] cc: Samm Thompson M.D. [address], [facility] [place] [facility] [address] Normal [facility] MAGNESIUM BLOODon 05-19-2022 Magnesium [Mass/Vol] 2.0 mg/dL Normal 1.9-2.7 [facility] Comment on above: Order Comment: No: D o not add to previous draw Performed By: #### 1 0070, 56226 #### [facility] [address] [place] [address], [facility] APTTon 05-18-2022 aPTT Coag (Bld) [Time] 80.7 s Critically high 25.0-35.0 [facility] Comment on above: Order Comment: No: D o not add to previous draw Result Comment: Resu lt checked and called. Accurately read back by BRANDI STOREY RN ON 05/18/2022 AT 14:48 Performed By: #### 2 7076, 65140, 53988, 86863, 78564, 94276 #### [facility] [address] [place] [address], [place] aPTT Coag (Bld) [Time] 135.2 s Critically high 25.0-35.0 [facility] Comment on above: Order Comment: No: D o not add to previous draw Result Comment: Resu lt checked and called. Accurately read back by Pepe Connolly rn at 0447 Performed By: #### 2 5508, 06273, 32847, 21786, 24136, 86163 #### [facility] [address] [place] [address], [facility] CBC COMPLETE BLOOD COUNTon 0 05-18-2022 Erythrocyte distribution width (RBC) [Ratio] 14.1 % Normal 11.5-15.0 [facility] Comment on above: Order Comment: No: D o not add to previous draw Performed By: #### 2 5508, 89299, 86913, 68926, 34492, 37018 #### [facility] [address] [place] [address], [facility] Hematocrit (Bld) [Volume fraction] 43.0 % Normal 39.0-50.0 [facility] Comment on above: Order Comment: No: D o not add to previous draw Performed By: #### 2 5508, 44297, 41158, 12792, 00567, 59860 #### [facility] [address] [place] [address], [facility] Hemoglobin (Bld) [Mass/Vol] 14.3 g/dL Normal 13.0-17.0 [facility] Comment on above: Order Comment: No: D o not add to previous draw Performed By: #### 2 5508, 60923, 96394, 51476, 86534, 56721 #### [facility] [address] [place] [address], [facility] MCH (RBC) [Entitic mass] 28.8 pg Normal 27.0-33.0 [facility] Comment on above: Order Comment: No: D o not add to previous draw Performed By: #### 2 5508, 77347, 59539, 97350, 87418, 68489 #### [facility] [address] [place] [address], [facility] MCHC (RBC) [Mass/Vol] 33.3 g/dL Normal 32.0-35.0 [facility] Comment on above: Order Comment: No: D o not add to previous draw Performed By: #### 2 5508, 95038, 15109, 33074, 83808, 86095 #### [facility] [address] [place] [address], [facility] MCV (RBC) [Entitic vol] 86.5 fL Normal 82.0-98.0 [facility] Comment on above: Order Comment: No: D o not add to previous draw Performed By: #### 2 5508, 11566, 85182, 22529, 63692, 27782 #### [facility] [address] [place] [address], [facility] Nucleated RBC/100 WBC (Bld) [Ratio] 0 % Normal 0-0 [facility] Comment on above: Order Comment: No: D o not add to previous draw Performed By: #### 2 5508, 68481, 05247, 03599, 18356, 22811 #### [facility] [address] [facility] [place] [address], [facility] PLAT CNT 105 10*3/uL Low 150-400 [facility] Comment on above: Order Comment: No: D o not add to previous draw Performed By: #### 2 5508, 23081, 94973, 04405, 00716, 45686 #### [facility] [address] [facility] [place] [address], [facility] RBC (Bld) [#/Vol] 4.97 10*6/uL Normal 4.20-5.70 [facility] Comment on above: Order Comment: No: D o not add to previous draw Performed By: #### 2 5508, 63188, 13697, 38555, 95557, 22703 #### [facility] [address] [facility] [place] [address], [facility] WBC (Bld) [#/Vol] 5.28 10*3/uL Normal 4.00-10.60 [facility] Comment on above: Order Comment: No: D o not add to previous draw Performed By: #### 2 5508, 10424, 84594, 19780, 97233, 53796 #### [facility] [address] [place] [address], [facility] POC GLUCOSE LABon 05-18-2022 Glucose [Mass/Vol] 92 mg/dL Normal 70-100 [facility] Comment on above: Performed By: #### 2 5508, 09111, 35819, 89274, 38512, 85228 #### [facility] [address] [place] [address], [facility] Glucose [Mass/Vol] 90 mg/dL Normal 70-100 [facility] Comment on above: Performed By: #### 2 5508, 48457, 07214, 32242, 49767, 55256 #### [facility] [address] [place] [address], [facility] PROTHROMBIN TIMEon INR Coag (PPP) [Relative time] 1.41 {INR} High 0.91-1.16 [facility] Comment on above: Order Comment: No: [...] CHEST 1995;108:[id number]. Performed By: #### 2 5508, 16925, 33568, 42934, 92483, 31525 #### [facility] [address] [place] [address], [facility] PT Coag (PPP) [Time] 17.2 s High 12.3-14.8 [facility] Comment on above: Order Comment: No: D o not add to previous draw Result Comment: ALL RESULTS MUST BE INTERPRETED WITH RESPECT TO BLOOD DRAWING ARTIFACT OR DILUTION ERROR OF ANTICOAGULANT AT THE TIME OF SAMPLING. Performed By: #### 2 5508, 21377, 15499, 40711, 66498, 03056 #### [facility] [address] [place] [address], [facility] UFH HEPARIN ASSAYon 05-18-20 22 UNFRACTIONATED HEPARIN >1.00 Critically high 0.30-0.70 [facility] Comment on above: Result Comment: Resu lt checked and called. Accurately read back by BRANDI STOREY RN ON 05/18/2022 AT 14:48 Rivaroxaban and Apixaban will interfere with the anti Xa assay used to monitor UFH and LMWH. Performed By: #### 2 5508, 33937, 69043, 30968, 41651, 33400 #### [facility] [address] [place] [address], [facility] UNFRACTIONATED HEPARIN >1.00 Critically high 0.30-0.70 [facility] Comment on above: Result Comment: Resu lt checked and called. Accurately read back by Pepe Connolly rn at 0447 Rivaroxaban and Apixaban will interfere with the anti Xa assay used to monitor UFH and LMWH. Performed By: #### 2 5508, 94965, 24770, 27117, 94834, 16601 #### [facility] [address] [place] [address], [facility] *BLOOD CULTUREon 05-17-2022 *BLOOD CULTURE Clinical Report: (D) Specimen: BLOOD CULTURE Collected: 05/17/2022 02:15 Status: Final Last Updated: 05/22/2022 07:50 CULT RES (Final) No Growth Day 5 Normal [facility] Comment on above: Performed By: #### 2 5508, 63882, 94510, 59708, 07846, 61027 #### [facility] [address] [place] [address], [facility] APTTon 05-17-2022 aPTT Coag (Bld) [Time] 147.6 s Critically high 25.0-35.0 [facility] Comment on above: Order Comment: No: D o not add to previous draw Result Comment: Resu lt checked and called. Accurately read back by brandi storey rn on 05/17/2022 at 18:38 Performed By: #### 2 5508, 49795, 62125, 78987, 50977, 07859 #### [facility] [address] [place] [address], [facility] aPTT Coag (Bld) [Time] 103.1 s Critically high 25.0-35.0 [facility] Comment on above: Order Comment: No: D o not add to previous draw Result Comment: Resu lt checked and called. Accurately read back by BRANDI STOREY @ 1000 Performed By: #### 2 5508, 54124, 58409, 78903, 66192, 86583 #### [facility] [address] [place] [address], [facility] aPTT Coag (Bld) [Time] 47.9 s High 25.0-35.0 [facility] Comment on above: Order Comment: No: D [...] THIS PURPOSE. Performed By: #### 2 5508, 31698, 97301, 59326, 67498, 47099 #### [facility] [address] [facility]. [address] BNP (B-TYPE NATRIURETIC PEPT TWIN)on 05-17-2022 Natriuretic peptide B (Bld) [Mass/Vol] 584 pg/mL High 0-100 [facility] Comment on above: Order Comment: No: D o not add to previous draw Result Comment: Give n the appropriate clinical setting a BNP result of >100 pg/mL indicates congestive heart failure. Performed By: #### 2 5508, 94354, 22507, 83929, 11500, 60706 #### [facility] [address] CBC W/DIFFon 05-17-2022 ABS IMM GRANS 0.0 10*3/uL Normal 0.0-0.2 [facility] Comment on above: Order Comment: No: D o not add to previous draw Performed By: #### 2 5508, 94829, 63714, 93513, 80636, 63415 #### [facility] [address] [facility]. [address] ABS NEUTROPHILS 3.6 10*3/uL Normal 1.6-7.6 [facility] Comment on above: Order Comment: No: D o not add to previous draw Performed By: #### 2 5508, 81831, 32849, 09267, 88608, 78176 #### [facility] [address] [facility] [place] [address], [facility] Basophils (Bld) [#/Vol] 0.0 10*3/uL Normal 0.0-0.2 [facility] Comment on above: Order Comment: No: D o not add to previous draw Performed By: #### 2 5508, 01071, 58389, 51836, 40661, 08524 #### [facility] [address] [facility] [place] [address], [facility] Basophils/100 WBC (Bld) 0.6 % Normal 0.0-1.0 [facility] Comment on above: Order Comment: No: D o not add to previous draw Performed By: #### 2 5508, 18676, 31424, 71511, 27800, 43784 #### [facility] [address] [place] [address], [facility] Eosinophils (Bld) [#/Vol] 0.0 10*3/uL Normal 0.0-0.5 [facility] Comment on above: Order Comment: No: D o not add to previous draw Performed By: #### 2 5508, 48050, 31964, 62814, 04670, 78866 #### [facility] [address] [place] [address], [facility] Eosinophils/100 WBC (Bld) 0.2 % Normal 0.0-6.0 [facility] Comment on above: Order Comment: No: D o not add to previous draw Performed By: #### 2 5508, 29691, 05240, 53968, 10694, 04162 #### [facility] [address] [place] [address], [facility] Erythrocyte distribution width (RBC) [Ratio] 13.9 % Normal 11.5-15.0 [facility] Comment on above: Order Comment: No: D o not add to previous draw Performed By: #### 2 5508, 43431, 53894, 88342, 79538, 12077 #### [facility] [address] [place] [address], [facility] Hematocrit (Bld) [Volume fraction] 40.6 % Normal 39.0-50.0 [facility] Comment on above: Order Comment: No: D o not add to previous draw Performed By: #### 2 5508, 57841, 16240, 30649, 59412, 92844 #### [facility] [address] [place] [address], [facility] Hemoglobin (Bld) [Mass/Vol] 13.7 g/dL Normal 13.0-17.0 [facility] Comment on above: Order Comment: No: D o not add to previous draw Performed By: #### 2 5508, 96515, 07375, 47117, 60749, 17685 #### [facility] [address] [place] [address], [facility] IMM PLATELET FRAC 6.9 % High 0.8-6.3 [facility] Comment on above: Order Comment: No: D o not add to previous draw Performed By: #### 2 5508, 84754, 33953, 29464, 37237, 69928 #### [facility] [address] [facility] [place] [address], [facility] IMMATURE GRANS 0.8 % Normal 0.0-1.0 [facility] Comment on above: Order Comment: No: D o not add to previous draw Performed By: #### 2 5508, 28501, 43231, 07586, 21112, 28548 #### [facility] [address] [place] [address], [facility] Lymphocytes (Bld) [#/Vol] 0.8 10*3/uL Low 1.2-4.0 [facility] Comment on above: Order Comment: No: D o not add to previous draw Performed By: #### 2 5508, 19290, 55679, 38526, 14553, 38413 #### [facility] [address] [facility] [place] [address], [facility] Lymphocytes/100 WBC (Bld) 15.5 % Low 20.0-45.0 [facility] Comment on above: Order Comment: No: D o not add to previous draw Performed By: #### 2 5508, 69954, 92522, 48227, 14001, 83650 #### [facility] [address] [place] [address], [facility] MCH (RBC) [Entitic mass] 29.3 pg Normal 27.0-33.0 [facility] Comment on above: Order Comment: No: D o not add to previous draw Performed By: #### 2 5508, 18197, 82792, 93379, 56596, 52958 #### [facility] [address] MCHC (RBC) [Mass/Vol] 33.7 g/dL Normal 32.0-35.0 [facility] Comment on above: Order Comment: No: D o not add to previous draw Performed By: #### 2 5508, 92385, 31003, 49407, 90632, 19744 #### [facility] [address] [place] [address], [facility] MCV (RBC) [Entitic vol] 86.9 fL Normal 82.0-98.0 [facility] Comment on above: Order Comment: No: D o not add to previous draw Performed By: #### 2 5508, 28486, 04093, 63171, 54357, 98874 #### [facility] [address] [place] [address], [facility] Monocytes (Bld) [#/Vol] 0.5 10*3/uL Normal 0.1-1.0 [facility] Comment on above: Order Comment: No: D o not add to previous draw Performed By: #### 2 5508, 99576, 13245, 46061, 48565, 13574 #### [facility] [address] [place] [address], [facility] MONOS 9.7 % Normal 5.0-12.0 [facility] Comment on above: Order Comment: No: D o not add to previous draw Performed By: #### 2 5508, 58074, 59105, 51214, 18223, 93731 #### [facility] [address] [place] [address], [facility] Neutrophils/100 WBC (Bld) 73.2 % High 40.0-72.0 [facility] Comment on above: Order Comment: No: D o not add to previous draw Performed By: #### 2 5508, 24435, 80637, 20480, 68949, 49466 #### [facility] [address] [place] [address], [facility] Nucleated RBC/100 WBC (Bld) [Ratio] 0 % Normal 0-0 [facility] Comment on above: Order Comment: No: D o not add to previous draw Performed By: #### 2 5508, 80204, 28052, 24154, 07526, 23940 #### [facility] [address] [place] [address], [facility] PLAT CNT 81 10*3/uL Low 150-400 [facility] Comment on above: Order Comment: No: D o not add to previous draw Performed By: #### 2 5508, 96659, 64169, 22498, 06326, 48795 #### [facility] [address] [place] [address], [facility] RBC (Bld) [#/Vol] 4.67 10*6/uL Normal 4.20-5.70 [facility] Comment on above: Order Comment: No: D o not add to previous draw Performed By: #### 2 5508, 63675, 31855, 77133, 41723, 75586 #### [facility] [address] [place] [id number], [facility] WBC (Bld) [#/Vol] 4.96 10*3/uL Normal 4.00-10.60 [facility] Comment on above: Order Comment: No: D o not add to previous draw Performed By: #### 2 5508, 86778, 13823, 73790, 39249, 52007 #### [facility] [address] [place] [address], [facility] COMP METABOLIC PANELon 05-17 Albumin [Mass/Vol] 3.0 g/dL Low 3.5-5.7 [facility] Comment on above: Order Comment: No: D o not add to previous draw Performed By: #### 2 5508, 18065, 71572, 51467, 04068, 37378 #### [facility] [address] [place] [address], [facility] ALKALINE PHOSPH 48 IU/L Normal 34-104 [facility] Comment on above: Order Comment: No: D o not add to previous draw Performed By: #### 2 5508, 59751, 15811, 44479, 26290, 28593 #### [facility] [address] [place] [address], [place] ALT [Catalytic activity/Vol] 11 U/L Normal 7-52 [facility] Comment on above: Order Comment: No: D o not add to previous draw Performed By: #### 2 5508, 52291, 93798, 20617, 22710, 56751 #### [facility] [address] [place] [address], [place] AST [Catalytic activity/Vol] 19 U/L Normal 13-39 [facility] Comment on above: Order Comment: No: D o not add to previous draw Performed By: #### 2 5508, 40610, 91726, 66266, 24295, 22624 #### [facility] [address] [place] [address], [place] Bilirubin [Mass/Vol] 0.7 mg/dL Normal 0.3-1.0 [facility] Comment on above: Order Comment: No: D o not add to previous draw Performed By: #### 2 5508, 18570, 61299, 29128, 97484, 32328 #### [facility] [address] [place] [address], [place] Calcium [Mass/Vol] 8.5 mg/dL Low 8.6-10.3 [facility] Comment on above: Order Comment: No: D o not add to previous draw Performed By: #### 2 5508, 47533, 69619, 18378, 02822, 25438 #### [facility] [address] [place] [address], [facility] Chloride [Moles/Vol] 104 mmol/L Normal 98-107 [facility] Comment on above: Order Comment: No: D o not add to previous draw Performed By: #### 2 5508, 96243, 00339, 59215, 47244, 05070 #### [facility] [address] [place] [address], [facility] CO2 [Moles/Vol] 19 mmol/L Low 21-31 [facility] Comment on above: Order Comment: No: D o not add to previous draw Performed By: #### 2 5508, 35840, 69024, 11170, 54231, 98281 #### [facility] [address] [place] [address], [facility] Creatinine [Mass/Vol] 1.71 mg/dL High 0.70-1.30 [facility] Comment on above: Order Comment: No: D o not add to previous draw Performed By: #### 2 5508, 61741, 95100, 58109, 32249, 92783 #### [facility] [address] [place] [address], [facility] EGFR 40 ml/min/1.73sq m Abnormal >60 [facility] Comment on above: Order Comment: No: D o not add to previous draw Result Comment: [facility]'s estimated glomerular filtration rate (eGFR) will no [...] of individuals. Performed By: #### 2 5508, 36465, 88082, 86567, 24186, 32337 #### [facility] [address] [place] [address], [place] Glucose [Mass/Vol] 96 mg/dL Normal 70-100 [facility] Comment on above: Order Comment: No: D o not add to previous draw Performed By: #### 2 5508, 62727, 20956, 75850, 44824, 15006 #### [facility] [address] [place] [address], [place] Potassium [Moles/Vol] 3.8 mmol/L Normal 3.5-5.1 [facility] Comment on above: Order Comment: No: D o not add to previous draw Performed By: #### 2 5508, 03895, 40272, 69224, 86404, 37559 #### [facility] [address] [place] [address], [place] Protein [Mass/Vol] 5.7 g/dL Low 6.0-8.3 [facility] Comment on above: Order Comment: No: D o not add to previous draw Performed By: #### 2 5508, 38730, 56855, 27213, 75616, 20102 #### [facility] [address] [place] [address], [place] Sodium [Moles/Vol] 133 mmol/L Low 136-145 [facility] Comment on above: Order Comment: No: D o not add to previous draw Performed By: #### 2 5508, 59418, 95816, 43550, 33577, 37790 #### [facility] [address] [place] [address], [place] Urea nitrogen [Mass/Vol] 57 mg/dL High 7-25 [facility] Comment on above: Order Comment: No: D o not add to previous draw Performed By: #### 2 5508, 79581, 53715, 04041, 62540, 31008 #### [facility] [address] [place] [address], [place] CPKon 05-17-2022 CK [Catalytic activity/Vol] 44 U/L Normal 30-223 [facility] Comment on above: Order Comment: No: D o not add to previous draw Performed By: #### 2 5508, 56755, 86831, 88671, 59346, 01705 #### [facility] [address] [place] [id number], [facility] FREE T4on 05-17-2022 Free T4 [Mass/Vol] 0.78 ng/dL Normal 0.71-1.85 [facility] Comment on above: Performed By: #### 2 5508, 65582, 17379, 45437, 67925, 04104 #### [facility] [address] [place] [address], [facility] HEMOGLOBIN A1Con 05-17-2022 Glucose [Moles/Vol] 117 mmol/L Normal [facility] Comment on above: Order Comment: No: D o not add to previous draw Performed By: #### 2 5508, 31834, 87993, 38968, 75306, 85657 #### [facility] [address] [place] [address], [facility] HbA1c (Bld) [Mass fraction] 5.7 % Normal 4.0-6.0 [facility] Comment on above: Order Comment: No: D o not add to previous draw Performed By: #### 2 5508, 94503, 93359, 02112, 89426, 51518 #### [facility] [address] [place] [address], [facility] LACTATE BLOODon 05-17-2022 Lactate [Moles/Vol] 1.0 mmol/L Normal .5-2.2 [facility] Comment on above: Order Comment: No: D o not add to previous draw Performed By: #### 2 5508, 53673, 62424, 83010, 80974, 57414 #### [facility] [address] [place] [address], [facility] LIPID PROFILEon 05-17-2022 Cholesterol [Mass/Vol] 141 mg/dL Normal 120-200 [facility] Comment on above: Order Comment: No: D o not add to previous draw Result Comment: CHOL ESTEROL REFERENCE RANGE: 20 YEARS AND OLDER CARDIOVASCULAR RISK Less than 200 mg/dl Low Risk 200 to 239 mg/dl Borderline Risk 240 mg/dl and greater High Risk Performed By: #### 2 5508, 15563, 45027, 07965, 75770, 46574 #### [facility] [address] [place] [address], [facility] Cholesterol in HDL [Mass/Vol] 22 mg/dL Low 23-92 [facility] Comment on above: Order Comment: No: D o not add to previous draw Result Comment: Slig ht variation in normal range could be due to gender and/or age. HDL CHOLESTEROL REFERENCE RANGE: 20 years and older Cardiovascular Risk > or =60 mg/dL Desirable 40 TO 59 mg/dL Low Risk <40 mg/dL High Risk Performed By: #### 2 5508, 33865, 26852, 37238, 09760, 48579 #### [facility] [address] [place] [address], [facility] Cholesterol in LDL [Mass/Vol] 95 mg/dL Normal 0-130 [facility] Comment on above: Order Comment: No: D o not add to previous draw Result Comment: LDL IS A CALCULATION LDL IS ONLY VALID IF THE TRIG IS LESS THAN 400. Performed By: #### 2 5508, 02816, 63804, 12988, 00586, 83452 #### [facility] [address] [place] [address], [place] Cholesterol.total/C holesterol in HDL [Mass ratio] 6.4 {ratio} High .0-4.5 [facility] Comment on above: Order Comment: No: D o not add to previous draw Performed By: #### 2 5508, 29092, 59266, 89028, 69495, 24594 #### [facility] [address] [place], [place] [id number] [place] [address] NON-HDL CHOLESTEROL 119 mg/dL Normal [facility] Comment on above: Order Comment: No: D o not add to previous draw Performed By: #### 2 5508, 00188, 00124, 48644, 43342, 27211 #### [facility] [address] [facility] [address], [facility] Triglyceride [Mass/Vol] 122 mg/dL Normal 40-149 [facility] Comment on above: Order Comment: No: D o not add to previous draw Result Comment: TRIG LYCERIDE REFERENCE RANGE: 20 YEARS AND OLDER CARDIOVASCULAR RISK LESS THAN 150 mg/dl LOW RISK 150 TO 199 mg/dl BORDERLINE RISK 200 mg/dl AND GREATER HIGH RISK Performed By: #### 2 5508, 85031, 73648, 03544, 94531, 80007 #### [facility] [address] [place] [address], [facility] VLDL CHOL 24 mg/dL Normal 0-40 [facility] Comment on above: Order Comment: No: D o not add to previous draw Performed By: #### 2 5508, 93548, 72591, 58735, 85109, 40261 #### [facility] [address] [place] [address], [facility] POC GLUCOSE LABon 05-17-2022 Glucose [Mass/Vol] 91 mg/dL Normal 70-100 [facility] Comment on above: Performed By: #### 2 5508, 55779, 65478, 49907, 29882, 61553 #### [facility] [address] [place] [address], [facility] PORTABLE CHEST 1 VIEWon PORTABLE CHEST 1 VIEW [facility] Department of Radiology [address] [place] [id number] Patient Name: JOSÉ MIGUEL ANTONIO : 1940 Sex: M Age: Race: White Pt. Location: [id number] Patient Status: I Ordered Date: 05/17/2022 2:00:00 [...] report. Electronically signed: Valdemar Coughlin. Transcribed by: [email or web address], User Resident: YARON NORTH Electronically Signed by: VALDEMAR COUGHLIN @ 05/17/2022 03:59 AM I personally read this/these film(s) with this resident Normal [facility] Comment on above: Order Comment: No: D o not add to previous draw PROTHROMBIN TIMEon 09-01-202 2 INR Coag (PPP) [Relative time] 2.07 {INR} High 0.91-1.16 [facility] Comment on above: Order Comment: No: [...] CHEST 1995;[id number]. Performed By: #### 2 5508, 25175, 01581, 48740, 65372, 45304 #### [facility] [address] [place] [address], [facility] PT Coag (PPP) [Time] 22.9 s High 12.3-14.8 [facility] Comment on above: Order Comment: No: D o not add to previous draw Result Comment: ALL RESULTS MUST BE INTERPRETED WITH RESPECT TO BLOOD DRAWING ARTIFACT OR DILUTION ERROR OF ANTICOAGULANT AT THE TIME OF SAMPLING. Performed By: #### 2 5508, 77473, 08634, 70359, 27914, 97643 #### [facility] [address] [place] [address], [facility] TROPONIN-Ion 05-17-2022 Troponin I.cardiac [Mass/Vol] 0.25 ng/mL Critically high 0.00-0.04 [facility] Comment on above: Order Comment: No: D o not add to previous draw Result Comment: M-NH EVIOUS CRITICAL RESULT REFERENCE RANGES: 0.00 - 0.04 ng/ml NORMAL 0.05 - 0.50 ng/ml INDETERMINATE > 0.50 ng/ml CONSISTENT WITH AN M.I. Performed By: #### 2 5508, 69730, 12101, 56977, 21119, 35315 #### [facility] [address] [place] [address], [facility] Troponin I.cardiac [Mass/Vol] 0.31 ng/mL Critically high 0.00-0.04 [facility] Comment on above: Order Comment: No: D o not add to previous draw Result Comment: M-TR OPONIN INITIAL CRITICAL HIGH; RESPUN AND RETESTED M-CRITICAL RESULT(S) REVIEWED, CALLED TO AND READ BACK BY DARIAN CLEMENTS AT 0345 REFERENCE RANGES: 0.00 - 0.04 ng/ml NORMAL 0.05 - 0.50 ng/ml INDETERMINATE > 0.50 ng/ml CONSISTENT WITH AN M.I. Performed By: #### 2 5508, 38714, 24620, 36492, 54722, 44530 #### [facility] [address] [place] [address], [facility] TSH3 WITH REFLEX FT4on 05-17 TSH 3RD GENERATION 0.19 uIU/mL Low 0.34-5.60 [facility] Comment on above: Order Comment: No: D o not add to previous draw Performed By: #### 2 5508, 86122, 89237, 48585, 77738, 22839 #### [facility] [address] [place] [address], [facility] UFH HEPARIN ASSAYon 05-17-20 22 UNFRACTIONATED HEPARIN >1.00 Critically high 0.30-0.70 [facility] Comment on above: Result Comment: Resu lt checked and called. Accurately read back by brandi storey rn on 05/17/2022 at 18:38 Rivaroxaban and Apixaban will interfere with the anti Xa assay used to monitor UFH and LMWH. Performed By: #### 2 5508, 31332, 47472, 87018, 89202, 24685 #### [facility] [address] [place] [address], [facility] UNFRACTIONATED HEPARIN >1.00 Critically high 0.30-0.70 [facility] Comment on above: Result Comment: Resu lt checked and called. Accurately read back by BRANDI STOREY @ 1000 Rivaroxaban and Apixaban will interfere with the anti Xa assay used to monitor UFH and LMWH. Performed By: #### 2 5508, 17743, 12348, 16569, 95691, 02915 #### [facility] [address] [place] [address], [facility] UNFRACTIONATED HEPARIN >1.00 Critically high 0.30-0.70 [facility] Comment on above: Result Comment: Resu lt checked and called. Accurately read back by Darian Clements RN at 0251 PT on Elquis UFH = 2.79 for pharmacy use Rivaroxaban and Apixaban will interfere with the anti Xa assay used to monitor UFH and LMWH. Performed By: #### 2 5508, 11778, 06935, 42103, 30863, 78323 #### [facility] [address] [facility] [place] [address], [facility] URINALYSIS REFLEXon 05-17-20 22 Appearance (U) CLEAR Normal CLEAR [facility] Comment on above: Order Comment: No: D o not add to previous draw Performed By: #### 2 5508, 14590, 59286, 90997, 64367, 19331 #### [facility] [address] [place] [address], [facility] Bilirubin Ql (U) Negative Normal NEGATIVE [facility] Comment on above: Order Comment: No: D o not add to previous draw Performed By: #### 2 5508, 44213, 30847, 70727, 22840, 50813 #### [facility] [address] [place] [address], [facility] Color (U) YELLOW Normal YELLOW [facility] Comment on above: Order Comment: No: D o not add to previous draw Performed By: #### 2 5508, 87911, 20244, 07306, 79533, 32897 #### [facility] [address] [place] [address], [facility] EPIS NONE SEEN Normal FEW,OCC,NONE SEEN [facility] Comment on above: Order Comment: No: D o not add to previous draw Performed By: #### 2 5508, 85815, 41368, 66646, 77256, 58981 #### [facility] [address] [place] [address], [facility] Glucose Ql (U) Negative Normal NEGATIVE [facility] Comment on above: Order Comment: No: D o not add to previous draw Performed By: #### 2 5508, 80973, 26954, 54532, 35561, 34348 #### [facility] [address] [place] [address], [facility] Hemoglobin Ql (U) TRACE Abnormal NEGATIVE [facility] Comment on above: Order Comment: No: D o not add to previous draw Performed By: #### 2 5508, 89465, 49977, 81847, 00374, 30139 #### [facility] [address] [place] [address], [facility] KETONE Negative Normal NEGATIVE [facility] Comment on above: Order Comment: No: D o not add to previous draw Performed By: #### 2 5508, 41256, 29084, 58359, 53566, 94280 #### [facility] [address] [place] [address], [place] LEUK MARQUITA Negative Normal NEGATIVE [facility] Comment on above: Order Comment: No: D o not add to previous draw Performed By: #### 2 5508, 17235, 12175, 81545, 74275, 74642 #### [facility] [address] [place] [address], [facility] MUCUS THREADS OCC Abnormal NONE SEEN [facility] Comment on above: Order Comment: No: D o not add to previous draw Performed By: #### 2 5508, 83688, 39995, 84143, 79360, 38912 #### [facility] [address] [place] [address], [facility] Nitrite Ql (U) Negative Normal NEGATIVE [facility] Comment on above: Order Comment: No: D o not add to previous draw Performed By: #### 2 5508, 84848, 20470, 85841, 24134, 48196 #### [facility] [address] [place] [address], [facility] pH (U) 5.5 [pH] Normal 5.0-8.0 [facility] Comment on above: Order Comment: No: D o not add to previous draw Performed By: #### 2 5508, 15011, 25527, 44541, 65886, 40194 #### [facility] [address] [place] [address], [facility] Protein Ql (U) 30 Abnormal NEGATIVE [facility] Comment on above: Order Comment: No: D o not add to previous draw Performed By: #### 2 5508, 81633, 83624, 09312, 53926, 01919 #### [facility] [address] [facility] [place] [address], [facility] RBC 3-5 Abnormal NONE SEEN [facility] Comment on above: Order Comment: No: D o not add to previous draw Performed By: #### 2 5508, 34350, 58467, 86789, 44717, 29515 #### [facility] [address] [place] [id number], [facility] SPEC GRAV 1.015 Normal 1.015-1.020 [facility] Comment on above: Order Comment: No: D o not add to previous draw Performed By: #### 2 5508, 05156, 02903, 45941, 41379, 05826 #### [facility] [address] [place] [address], [facility] WBC UA 0-2 Abnormal NONE SEEN [facility] Comment on above: Order Comment: No: D o not add to previous draw Performed By: #### 2 5508, 60589, 77989, 95845, 95716, 12159 #### [facility] [address] BNPon 05-16-2022 Natriuretic peptide B (Bld) [Mass/Vol] 55924.0 pg/mL Critically high <=1,800.0 [facility] Comment on above: Performed By: #### B MP, BNP #### [facility] [address] [place] [address] Dr. Silva Burnett CBC AUTO DIFFon 05-16-2022 BASO # 0.0 103/ul Normal 0.0-0.1 [facility] Comment on above: Performed By: #### V ITAD #### [facility] [address] [place] [address] Dr. Silva Burnett Basophils/100 WBC (Bld) 0.6 % Normal 0.2-2.0 [facility] Comment on above: Performed By: #### V ITAD #### [facility] [address] [place] [address] Dr. Silva Burnett EO # 0.0 103/ul Normal 0.0-0.7 [facility] Comment on above: Performed By: #### V ITAD #### [facility] [address] [place] [address] Dr. Silva Burnett Eosinophils/100 WBC (Bld) 0.1 % Critically low 0.9-7.0 [facility] Comment on above: Performed By: #### V ITAD #### [facility] [address] [place] [address] Dr. Silva Burnett Erythrocyte distribution width (RBC) [Ratio] 13.7 % Normal 11.0-15.0 [facility] Comment on above: Performed By: #### V ITAD #### [facility] [address] [place] [address] [address] Silva Burnett Hematocrit (Bld) [Volume fraction] 45.5 % Normal 42.0-54.0 [facility] Comment on above: Performed By: #### V ITAD #### [facility] [address] [place] [address] [address] Silva Burnett Hemoglobin (Bld) [Mass/Vol] 14.9 g/dL Normal 14.0-18.0 [facility] Comment on above: Performed By: #### V ITAD #### [facility] [address] [place] [address] [address] Silva Burnett IG # 0.04 10e3/ul Critically high 0.00-0.03 [facility] Comment on above: Performed By: #### V ITAD #### [facility] [address] [place] [address] [address] Silva Burnett IG % 0.6 % Critically high 0.0-0.5 [facility] Comment on above: Performed By: #### V ITAD #### [facility] [address] [place] [address] [address] Silva Burnett LYMPH # 0.8 103/ul Critically low 1.2-3.8 [facility] Comment on above: Performed By: #### V ITAD #### [facility] [address] [place] [address] [address] Silva Burnett Lymphocytes/100 WBC (Bld) 11.9 % Critically low 20.5-60.0 [facility] Comment on above: Performed By: #### V ITAD #### [facility] [address] [place] [address] [address] Silva Burnett MANUAL DIFF REQ NO Normal [facility] Comment on above: Performed By: #### V ITAD #### [facility] [address] [place] [address] Dr. Silva Burnett MCH (RBC) [Entitic mass] 29.0 pg Normal 25.9-34.0 [facility] Comment on above: Performed By: #### V ITAD #### [facility] [address] [place] [address] [address] Silva Burnett MCHC (RBC) [Mass/Vol] 32.7 g/dL Normal 29.9-35.2 [facility] Comment on above: Performed By: #### V ITAD #### [facility] [address] [place] [address] [address] Silva Burnett MCV (RBC) [Entitic vol] 88.7 fL Normal 80.0-94.0 [facility] Comment on above: Performed By: #### V ITAD #### [facility] [address] [place] [address] [address] Silva uBrnett MONO # 0.4 103/ul Normal 0.3-0.8 [facility] Comment on above: Performed By: #### V ITAD #### [facility] [address] [place] [address] Dr. Silva Burnett Monocytes/100 WBC (Bld) 6.5 % Normal 1.7-12.0 [facility] Comment on above: Performed By: #### V ITAD #### [facility] [address] [place] [address] Dr. Silva Burnett NEUT # 5.4 103/ul Normal 1.4-6.5 [facility] Comment on above: Performed By: #### V ITAD #### [facility] [address] [place] [address] [address] Silva Burnett Neutrophils/100 WBC (Bld) 80.3 % Critically high 43.0-75.0 [facility] Comment on above: Performed By: #### V ITAD #### [facility] [address] [place] [address] Dr. Silva Burnett Platelet mean volume (Bld) [Entitic vol] 11.5 fL Normal 9.5-13.5 [facility] Comment on above: Performed By: #### V ITAD #### [facility] [address] [place] [address] [address] Silva Burnett PLT 111 103/ul Critically low 150-450 [facility] Comment on above: Performed By: #### V ITAD #### [facility] [address] [place], [place] [address] Dr. Silva Burnett RBC 5.13 106/ul Normal 4.70-6.10 [facility] Comment on above: Performed By: #### V ITAD #### [facility] [address] [place], [place] [address] Dr. Silva Burnett WBC 6.7 103/ul Normal 4.0-11.0 [facility] Comment on above: Performed By: #### V ITAD #### [facility] [address] [place], [place] [address] HEAD WO CONon [...] LINDA JUNIOR Date: 2022-05-16 17:37 Normal [facility] CULTURE URINEon 05-16-2022 CULTURE URINE Culture Observations : NO GROWTH. Normal [facility] Comment on above: Performed By: #### V ITAD #### [facility] [address] [place], [place] [address] Dr. Silva Burnett [facility] SARS-CoV-2 (COVID-19) RNA BRANT+probe Ql (Unsp spec) Not detected Normal NOT DETECTED [facility] Comment on above: Result Comment: When diagnostic [...] for this test is supported by the Client Resolution Specialist of Health and Human Service's declaration that [...] used). Performed By: #### C VDTBH #### [facility] [address] [place] [address] Dr. Silva Burnett ER URINE PROFILEon 2 Bilirubin Ql (U) Negative Normal NEGATIVE [facility] Comment on above: Performed By: #### B MP, BNP #### [facility] [address] [place] [address] Dr. Silva Burnett Clarity (U) CLEAR Normal CLEAR [facility] Comment on above: Performed By: #### B MP, BNP #### [facility] [address] [place] [address] Dr. Silva Burnett Color (U) DK. YELLOW Normal YELLOW [facility] Comment on above: Performed By: #### B MP, BNP #### [facility] [address] [place] [address] Dr. Silva Burnett ERUAHD A micrscopic examina tion will be performed if indicated. Normal [facility] Comment on above: Performed By: #### B MP, BNP #### [facility] [address] [place] [address] Dr. Silva Burnett Glucose Ql (U) Negative Normal NEGATIVE [facility] Comment on above: Performed By: #### B MP, BNP #### [facility] [address] [place] [address] Dr. Silva Burnett Hemoglobin Ql (U) TRACE-INTACT Abnormal NEGATIVE [facility] Comment on above: Performed By: #### B MP, BNP #### [facility] [address] [place] [address] Dr. Silva Burnett Ketones Ql (U) TRACE Abnormal NEGATIVE [facility] Comment on above: Performed By: #### B MP, BNP #### [facility] [address] [place] [address] Dr. Silva Burnett LEUKOCYTES Negative Normal NEGATIVE [facility] Comment on above: Performed By: #### B MP, BNP #### [facility] [address] [place] [address] Dr. Silva Burnett Nitrite Ql (U) Negative Normal NEGATIVE [facility] Comment on above: Performed By: #### B MP, BNP #### [facility] [address] [place] [address] Dr. Silva Burnett pH (U) 5.5 [pH] Normal 5-9 [facility] Comment on above: Performed By: #### B MP, BNP #### [facility] [address] [place] [address] Dr. Silva Burnett Protein (U) [Mass/Vol] 30 mg/dL Abnormal NEGATIVE/ TRACE [facility] Comment on above: Performed By: #### B MP, BNP #### [facility] [address] [place] [address] Dr. Silva Burnett SPEC GRAVITY 1.025 Normal 1.005-<=1.02 5 [facility] Comment on above: Performed By: #### B MP, BNP #### [facility] [address] [place] [address] Dr. Silva Burnett UR MICRO IND INDICATED Normal [facility] Comment on above: Performed By: #### B MP, BNP #### [facility] [address] [place] [address] Dr. Silva Burnett Urobilinogen Qn (U) 0.2 {Zaina'U}/dL Normal 0.2 - 1. 0 [facility] Comment on above: Performed By: #### B MP, BNP #### [facility] [address] [place] [address] Dr. Silva Burnett PROF 14(COMP METB)on 022 Albumin [Mass/Vol] 2.8 g/dL Critically low 3.4-5.0 Th e [facility] Comment on above: Performed By: #### B MP, BNP #### [facility] [address] [place] [address] Dr. Silva Burnett Albumin/Globulin [Mass ratio] 0.7 {ratio} Normal [facility] Comment on above: Performed By: #### B MP, BNP #### [facility] [address] [place] [address] Dr. Silva Burnett ALP [Catalytic activity/Vol] 69 U/L Normal 46-116 [facility] Comment on above: Performed By: #### B MP, BNP #### [facility] [address] [place] [address] Dr. Silva Brunett ALT [Catalytic activity/Vol] 16 U/L Normal 16-63 [facility] Comment on above: Performed By: #### B MP, BNP #### [facility] [address] [place] [address] Dr. Silva Burnett Anion gap [Moles/Vol] 15.2 mmol/L Normal [facility] Comment on above: Performed By: #### B MP, BNP #### [facility] [address] [place] [address] Dr. Silva Burnett AST [Catalytic activity/Vol] 30 U/L Normal 15-37 [facility] Comment on above: Performed By: #### B MP, BNP #### [facility] [address] [place] [address] Dr. Silva Burnett Bilirubin [Mass/Vol] 0.9 mg/dL Normal 0.2-1.0 [facility] Comment on above: Performed By: #### B MP, BNP #### [facility] [address] [address] [address] Silva Burnett Calcium [Mass/Vol] 9.0 mg/dL Normal 8.5-10.1 [facility] Comment on above: Performed By: #### B MP, BNP #### [facility] [address] [place] [address] Dr. Silva Burnett Chloride [Moles/Vol] 98 mmol/L Normal 98-107 [facility] Comment on above: Performed By: #### B MP, BNP #### [facility] [address] [place] [address] Dr. Silva Burnett CO2 [Moles/Vol] 22.9 mmol/L Normal 21.0-32.0 [facility] Comment on above: Performed By: #### B MP, BNP #### [facility] [address] [place] [address] Dr. Silva Burnett Creatinine [Mass/Vol] 2.20 mg/dL Critically high 0.70-1.30 [facility] Comment on above: Performed By: #### B MP, BNP #### [facility] [address] [place] [address] Dr. Silva Burnett EGFR-AF LIBYAN 35 mL/min/1.73m2 Critically low >=60 [facility] Comment on above: Performed By: #### B MP, BNP #### [facility] [address] [place] [address] Dr. Silva Burnett EGFR-NON AF LIBYAN 29 mL/min/1.73m2 Critically low >=60 [facility] Comment on above: Performed By: #### B MP, BNP #### [facility] [address] [place] [address] Dr. Silva Burnett Globulin (S) [Mass/Vol] 4.0 g/dL Normal [facility] Comment on above: Performed By: #### B MP, BNP #### [facility] [address] [place] [address] Dr. Silva Burnett Glucose [Mass/Vol] 148 mg/dL Critically high 74-106 T [facility] Comment on above: Performed By: #### B MP, BNP #### [facility] [address] [place] [address] Dr. Silva Burnett Potassium [Moles/Vol] 4.1 mmol/L Normal 3.5-5.1 [facility] Comment on above: Performed By: #### B MP, BNP #### [facility] [address] [place] [address] Dr. Silva Burnett Protein [Mass/Vol] 6.8 g/dL Normal 6.4-8.2 [facility] Comment on above: Performed By: #### B MP, BNP #### [facility] [address] [place] [address] Dr. Silva Burnett Sodium [Moles/Vol] 132 mmol/L Critically low 136-145 Th [facility] Comment on above: Performed By: #### B MP, BNP #### [facility] [address] [place] [address] Dr. Silva Burnett Urea nitrogen [Mass/Vol] 60.0 mg/dL Critically high 7.0-18.0 [facility] Comment on above: Performed By: #### B MP, BNP #### [facility] [address] [place] [address] Dr. Silva Burnett Urea nitrogen/Creatinine [Mass ratio] 27.3 mg/mg Normal [facility] Comment on above: Performed By: #### B MP, BNP #### [facility] [address] [place] [address] Dr. Silva Burnett PROTIMEon 05-16-2022 INR Coag (PPP) [Relative time] 1.43 {INR} Normal [facility] Comment on above: Performed By: #### V ITAD #### [facility] [address] [place] [address] Dr. Silva Burnett INR GUIDELINES SEE BELOW Normal [facility] Comment on above: Result Comment: EDMOND RED INR: 2.0 - 3.0 CONDITIONS NOT LISTED BELOW 2.5 - 3.5 FOR PROSTHETIC HEART VALVE REPLACEMENT 2.5 - 3.5 RECURRENT THROMBOSIS Performed By: #### V ITAD #### [facility] [address] [place] [address] Dr. Silva Burnett PT Coag (PPP) [Time] 15.1 s Critically high 9.0-11.6 [facility] Comment on above: Performed By: #### V ITAD #### [facility] [address] [place] [address] Dr. Silva Burnett PTTon 05-16-2022 aPTT Coag (Bld) [Time] 35.6 s Normal 22.3-36.2 [facility] Comment on above: Performed By: #### V ITAD #### [facility] [address] [place] [address] Dr. Silva Burnett TROPONIN, HIGH SENSITIVITYon 05-16-2022 HSTROP 895.9 pg/mL Critically high 4.0-76.1 [facility] Comment on above: Result Comment: CUT- OFF POINTS HAVE BEEN ESTABLISHED BASED ON THE FOURTH UNIVERSAL DEFINITIONS OF MYOCARDIAL INFARCTION. THE UPPER REFERENCE LIMIT (URL) OF TROPONIN, DEFINED THE 99TH PERCENTILE OF cTnI DISTRIBUTION IN A REFERENCE POPULATION, HAS BEEN CONFIRMED THE DECISION THRESHOLD FOR AK DIAGNOSIS. Performed By: #### B MP, BNP #### [facility] [address] [place] [address] Dr. Silva Burnett HSTROP 1000.5 pg/mL Critically high 4.0-76.1 [facility] Comment on above: Result Comment: CUT- OFF POINTS HAVE BEEN ESTABLISHED BASED ON THE FOURTH UNIVERSAL DEFINITIONS OF MYOCARDIAL INFARCTION. THE UPPER REFERENCE LIMIT (URL) OF TROPONIN, DEFINED THE 99TH PERCENTILE OF cTnI DISTRIBUTION IN A REFERENCE POPULATION, HAS BEEN CONFIRMED THE DECISION THRESHOLD FOR [place] DIAGNOSIS. Performed By: #### B MP, BNP #### [facility] [address] [place] [address] Dr. Silva Burnett URINE MICROSCOPIC ONLYon BACTERIA TRACE Abnormal NONE SEEN [facility] Comment on above: Performed By: #### B MP, BNP #### [facility] [address] [place] [address] Dr. Silva Burnett Bacteria identified Cx Nom (U) INDICATED Normal [facility] Comment on above: Performed By: #### B MP, BNP #### [facility] [address] [place] [address] Dr. Silva Burnett CAST SEEN Abnormal NONE SEEN [facility] Comment on above: Performed By: #### B MP, BNP #### [facility] [address] [address] [address] Silva Burnett Crystals LM Nom (Urine sed) NONE SEEN Normal NONE SEEN [facility] Comment on above: Performed By: #### B MP, BNP #### [facility] [address] [address] [address] Silva Burnett Epithelial cells LM Ql (Urine sed) FEW Abnormal NONE SEEN /RARE [facility] Comment on above: Performed By: #### B MP, BNP #### [facility] [address] [place] [address] Dr. Silva Burnett HYALINE CAST FEW Normal [facility] Comment on above: Performed By: #### B MP, BNP #### [facility] [address] [place] [address] Dr. Silva Burnett MUCOUS SMALL Abnormal NONE SEEN [facility] Comment on above: Performed By: #### B MP, BNP #### [facility] [address] [address] [address] Silva Burnett RBC 0-2 Normal 0-2 [facility] Comment on above: Performed By: #### B MP, BNP #### [facility] [address] [place] [address] Dr. Silva Burnett WBC 5-10 Abnormal NONE SEEN [facility] Comment on above: Performed By: #### B MP, BNP #### [facility] [address] [place] [address] Dr. Silva Burnett XR CHEST 1 Von [...] No acute cardiopulmonary process. Electronically authenticated by: AYANASHANIA FERNANDEZ Date: 2022-05-16 15:53 Normal [facility] BNPon 05-14-2022 NT PRO BNP >70224.0 Critically high <=1,800.[address] [facility] Comment on above: Performed By: #### B MP, BNP #### [facility] [address] [place] [address] Dr. Silva Burnett CBC AUTO DIFFon 05-14-2022 BASO # 0.0 103/ul Normal 0.0-0.1 [facility] Comment on above: Performed By: #### B MP, BNP #### [facility] [address] [place] [address] Dr. Silva Burnett Basophils/100 WBC (Bld) 0.3 % Normal 0.2-2.0 [facility] Comment on above: Performed By: #### B MP, BNP #### [facility] [address] [place] [address] Dr. Silva Burnett EO # 0.0 103/ul Normal 0.0-0.7 [facility] Comment on above: Performed By: #### B MP, BNP #### [facility] [address] [place] [address] Dr. Silva Burnett Eosinophils/100 WBC (Bld) 0.0 % Critically low 0.9-7.0 [facility] Comment on above: Performed By: #### B MP, BNP #### [facility] [address] [place] [address] Dr. Silva Burnett Erythrocyte distribution width (RBC) [Ratio] 13.6 % Normal 11.0-15.0 [facility] Comment on above: Performed By: #### B MP, BNP #### [facility] [address] [place] [address] Dr. Silva Burnett Hematocrit (Bld) [Volume fraction] 41.8 % Critically low 42.0-54.0 [facility] Comment on above: Performed By: #### B MP, BNP #### [facility] [address] [place] [address] Dr. Silva Burnett Hemoglobin (Bld) [Mass/Vol] 13.6 g/dL Critically low 14.0-18.0 [facility] Comment on above: Performed By: #### B MP, BNP #### [facility] [address] [place] [address] Dr. Silva Burnett IG # 0.04 10e3/ul Critically high 0.00-0.03 [facility] Comment on above: Performed By: #### B MP, BNP #### [facility] [address] [place] [address] Dr. Silva Burnett IG % 0.5 % Normal 0.0-0.5 [facility] Comment on above: Performed By: #### B MP, BNP #### [facility] [address] [place] [address] Dr. Silva Burnett LYMPH # 0.5 103/ul Critically low 1.2-3.8 [facility] Comment on above: Performed By: #### B MP, BNP #### [facility] [address] [place] [address] Dr. Silva Burnett Lymphocytes/100 WBC (Bld) 7.1 % Critically low 20.5-60.0 [facility] Comment on above: Performed By: #### B MP, BNP #### [facility] [address] [place] [address] Dr. Silva Burnett MANUAL DIFF REQ NO Normal [facility] Comment on above: Performed By: #### B MP, BNP #### [facility] [address] [place] [address] Dr. Silva Burnett MCH (RBC) [Entitic mass] 29.4 pg Normal 25.9-34.0 [facility] Comment on above: Performed By: #### B MP, BNP #### [facility] [address] [place] [address] Dr. Silva Burnett MCHC (RBC) [Mass/Vol] 32.5 g/dL Normal 29.9-35.2 [facility] Comment on above: Performed By: #### B MP, BNP #### [facility] [address] [place] [address] Dr. Silva Burnett MCV (RBC) [Entitic vol] 90.3 fL Normal 80.0-94.0 [facility] Comment on above: Performed By: #### B MP, BNP #### [facility] [address] [place] [address] Dr. Silva Burnett MONO # 0.4 103/ul Normal 0.3-0.8 [facility] Comment on above: Performed By: #### B MP, BNP #### [facility] [address] [place] [address] Dr. Silva Burnett Monocytes/100 WBC (Bld) 5.4 % Normal 1.7-12.0 [facility] Comment on above: Performed By: #### B MP, BNP #### [facility] [address] [place] [address] Dr. Silva Burnett NEUT # 6.6 103/ul Critically high 1.4-6.[address] [facility] Comment on above: Performed By: #### B MP, BNP #### [facility] [address] [place] [address] Dr. Silva Burnett Neutrophils/100 WBC (Bld) 86.7 % Critically high 43.0-75.0 [facility] Comment on above: Performed By: #### B MP, BNP #### [facility] [address] [place] [address] Dr. Silva Burnett Platelet mean volume (Bld) [Entitic vol] 10.4 fL Normal 9.5-13.5 [facility] Comment on above: Performed By: #### B MP, BNP #### [facility] [address] [place] [address] Dr. Silva Burnett PLT 110 103/ul Critically low 150-450 [facility] Comment on above: Performed By: #### B MP, BNP #### [facility] [address] [place] [address] Dr. Silva Burnett RBC 4.63 106/ul Critically low 4.70-6.[address] [facility] Comment on above: Performed By: #### B MP, BNP #### [facility] [address] [place] [address] Dr. Silva Burnett WBC 7.6 103/ul Normal 4.0-11.0 [facility] Comment on above: Performed By: #### B MP, BNP #### [facility] [address] [place] [address] Dr. Silva Burnett CULTURE URINEon 05-14-2022 CULTURE URINE Culture Observations : NO GROWTH. Normal [facility] Comment on above: Performed By: #### V ITAD #### [facility] [address] [place] [address] Dr. Silva Burnett IRONon 05-14-2022 Iron [Mass/Vol] 18.0 ug/dL Critically low 65.0-175.0 [facility] Comment on above: Performed By: #### I CUBA #### [facility] [address] [place] [address] Dr. Silva Burnett PROF 14(COMP METB)on 022 Albumin [Mass/Vol] 3.4 g/dL Normal 3.4-5.0 [facility] Comment on above: Performed By: #### B MP, BNP #### [facility] [address] [place] [address] Dr. Silva Burnett Albumin/Globulin [Mass ratio] 0.8 {ratio} [facility] Comment on above: Performed By: #### B MP, BNP #### [facility] [address] [place] [address] Dr. Silva Burnett ALP [Catalytic activity/Vol] 77 U/L Normal 46-116 [facility] Comment on above: Performed By: #### B MP, BNP #### [facility] [address] [place] [address] Dr. Silva Burnett ALT [Catalytic activity/Vol] 16 U/L Normal 16-63 [facility] Comment on above: Performed By: #### B MP, BNP #### [facility] [address] [place] [address] Dr. Silva Burnett Anion gap [Moles/Vol] 13.3 mmol/L Normal [facility] Comment on above: Performed By: #### B MP, BNP #### [facility] [address] [address] [address] Silva Burnett AST [Catalytic activity/Vol] 23 U/L Normal 15-37 [facility] Comment on above: Performed By: #### B MP, BNP #### [facility] [address] [address] [address] Silva Burnett Bilirubin [Mass/Vol] 0.9 mg/dL Normal 0.2-1.0 [facility] Comment on above: Performed By: #### B MP, BNP #### [facility] [address] [address] [address] Silva Burnett Calcium [Mass/Vol] 9.3 mg/dL Normal 8.5-10.1 [facility] Comment on above: Performed By: #### B MP, BNP #### [facility] [address] [address] [address] Silva Burnett Chloride [Moles/Vol] 98 mmol/L Normal 98-107 [facility] Comment on above: Performed By: #### B MP, BNP #### [facility] [address] [address] [address] Silva Burnett CO2 [Moles/Vol] 26.0 mmol/L Normal 21.0-32.0 [facility] Comment on above: Performed By: #### B MP, BNP #### [facility] [address] [address] [address] Silva Burnett Creatinine [Mass/Vol] 1.84 mg/dL Critically high 0.70-1.30 [facility] Comment on above: Performed By: #### B MP, BNP #### [facility] [address] [address] [address] Silva Burnett EGFR-AF LIBYAN 43 mL/min/1.73m2 Critically low >=60 [facility] Comment on above: Performed By: #### B MP, BNP #### [facility] [address] [address] [address] Silva Burnett EGFR-NON AF LIBYAN 36 mL/min/1.73m2 Critically low >=60 [facility] Comment on above: Performed By: #### B MP, BNP #### [facility] [address] [address] [address] Silva Burnett Globulin (S) [Mass/Vol] 4.1 g/dL Normal [facility] Comment on above: Performed By: #### B MP, BNP #### [facility] [address] [address] [address] Silva Burnett Glucose [Mass/Vol] 132 mg/dL Critically high 74-106 T [facility] Comment on above: Performed By: #### B MP, BNP #### [facility] [address] [place] [address] Dr. Silva Burnett Potassium [Moles/Vol] 4.3 mmol/L Normal 3.5-5.1 [facility] Comment on above: Performed By: #### B MP, BNP #### [facility] [address] [place] [address] Dr. Silva Burnett Protein [Mass/Vol] 7.5 g/dL Normal 6.4-8.2 [facility] Comment on above: Performed By: #### B MP, BNP #### [facility] [address] [place] [address] Dr. Silva Burnett Sodium [Moles/Vol] 133 mmol/L Critically low 136-145 Th [facility] Comment on above: Performed By: #### B MP, BNP #### [facility] [address] [place] [address] Dr. Silva Burnett Urea nitrogen [Mass/Vol] 38.0 mg/dL Critically high 7.0-18.0 [facility] Comment on above: Performed By: #### B MP, BNP #### [facility] [address] [place] [address] Dr. Silva Burnett Urea nitrogen/Creatinine [Mass ratio] 20.7 mg/mg Normal [facility] Comment on above: Performed By: #### B MP, BNP #### [facility] [address] [place] [address] Dr. Silva Burnett UA RANDOM W/MICROSCOPICon BACTERIA NONE SEEN Normal NONE SEEN [facility] Comment on above: Performed By: #### U AMIC #### [facility] [address] [address] [address] Silva Burnett Bilirubin Ql (U) Negative Normal NEGATIVE [facility] Comment on above: Performed By: #### U AMIC #### [facility] [address] [place] [address] Dr. Silva Burnett CAST NONE SEEN Normal NONE SEEN [facility] Comment on above: Performed By: #### U AMIC #### [facility] [address] [address] [address] Silva Burnett Clarity (U) CLEAR Normal CLEAR [facility] Comment on above: Performed By: #### U AMIC #### [facility] [address] [place] [address] Dr. Silva Burnett Color (U) YELLOW Normal YELLOW [facility] Comment on above: Performed By: #### U AMIC #### [facility] [address] [address] [address] Silva Burnett Crystals LM Nom (Urine sed) NONE SEEN Normal NONE SEEN [facility] Comment on above: Performed By: #### U AMIC #### [facility] [address] [place] [address] Dr. Silva Burnett Epithelial cells LM Ql (Urine sed) NONE SEEN Normal NONE SEEN /RARE [facility] Comment on above: Performed By: #### U AMIC #### [facility] [address] [place] [address] Dr. Silva Burnett Glucose Ql (U) Negative Normal NEGATIVE [facility] Comment on above: Performed By: #### U AMIC #### [facility] [address] [address] [address] Silva Burnett Hemoglobin Ql (U) MODERATE Abnormal NEGATIVE [facility] Comment on above: Performed By: #### U AMIC #### [facility] [address] [place] [address] Dr. Silva Burnett Ketones Ql (U) Negative Normal NEGATIVE [facility] Comment on above: Performed By: #### U AMIC #### [facility] [address] [address] [address] Silva Burnett LEUKOCYTES Negative Normal NEGATIVE [facility] Comment on above: Performed By: #### U AMIC #### [facility] [address] [address] [address] Silva uBrnett MUCOUS NONE SEEN Normal NONE SEEN [facility] Comment on above: Performed By: #### U AMIC #### [facility] [address] [address] [address] Silva Burnett Nitrite Ql (U) Negative Normal NEGATIVE [facility] Comment on above: Performed By: #### U AMIC #### [facility] [address] [address] [address] Silva Burnett pH (U) 6.0 [pH] Normal 5-9 [facility] Comment on above: Performed By: #### U AMIC #### [facility] [address] [place] [address] Dr. Silva Burnett RBC 0-2 Normal 0-2 [facility] Comment on above: Performed By: #### U AMIC #### [facility] [address] [address] [address] Silva Burnett SPEC GRAVITY 1.025 Normal 1.005-<=1.02 5 [facility] Comment on above: Performed By: #### U AMIC #### [facility] [address] [place] [address] Dr. Silva Burnett UA PROTEIN 30 mg/dl Abnormal NEGATIVE/ TRACE [facility] Comment on above: Performed By: #### U AMIC #### [facility] [address] [place] [address] Dr. Silva Burnett Urobilinogen Qn (U) 1.0 {Zaina'U}/dL Normal 0.2 - 1. 0 [facility] Comment on above: Performed By: #### U AMIC #### [facility] [address] [address] [address] Silva Burnett WBC NONE SEEN Normal NONE SEEN [facility] Comment on above: Performed By: #### U AMIC #### [facility] [address] [address] [address] Silva Burnett ICD REMOTE CHECKon 2 AV Delay Adaptive Paced Minimum (ms) 200 ms [facility] AV Delay Adaptive Sensed Minimum (ms) 170 ms [facility] Bj RA Pacing Amplitude (volts) 2 V [facility] Bj RA Pacing Polarity BI [facility] Bj RA Pacing Pulse Width (ms) 0.5 ms [facility] Bj RA Sensing Amplitude (mvolts) 0.25 mV [facility] Bj RA Sensing Polarity BI [facility] Bj RV Pacing Amplitude (volts) 2 V [facility] Bj RV Pacing Polarity BI [facility] Bj RV Pacing Pulse Width (ms) 0.5 ms [facility] Bj RV Sensing Amplitude (mvolts) 0.3 mV [facility] Bj RV Sensing Polarity BI [facility] Detection Configuration (Vent) 2 - Zone [facility] FastVT_Detection Interval 250 ms [facility] FastVT_Therapy Configuration 1 ATP(s) + 8 Shock(s) [facility] ICD FastVT DetectionStatus ENABLED [facility] ICD-AMS EPISODES 170 {beats}/min [facility] ICD-ATP Episodes (Vent) 0 [facility] ICD-ATRIALFIBRILLAT ION 21 [facility] ICD-ATRIALTACHYCARD IA 21 [facility] ICD-ATRIALTACHYCARD IA 6 [facility] ICD-Device Mfg BSX [facility] ICD-Fast Ventricular Tachycardia 6 [facility] ICD-LEADIMPEDANCEAT RIAL 709 ohm [facility] ICD-Percent Pacing (Atrial) 5 % [facility] ICD-Percent Pacing (Vent) 1 % [facility] ICD-Shocks Aborted (Vent) 0 [facility] [id number] D 0 [facility] ICD-SHOCKSABORTED 0 [facility] ICD-SHOCKSDELIVERED VENTRICULAR 0 [facility] ICD-Ventricular Fibrillation 0 [facility] Lead Impedance (RV) 416 ohm [facility] Lead Impedance High Voltage 47 ohm [facility] Lead1 Mfg BSX [facility] Lead2 Mfg BSX [facility] Location RV [facility] Location RA [facility] Lower Rate (bpm) 50 {beats}/min [facility] Max Sensor Rate (bpm) 130 {beats}/min [facility] MDT_PROG_TACHY_ZONE _DETECTIONS_STATUS ENABLED [facility] Model D142 INOGEN [facility] Model [address] 4-Front [facility] Model 7741 Ingevity MRI [facility] Pacing Mode DDDR [facility] Serial Number [id number] [facility] Serial Number [id number] [facility] Serial Number [id number] [facility] Test Charge Energy 23 J [facility] Test Charge Time 10.1 s [facility] Therapy Status (Vent) Enabled [facility] Thresh RA Capture Amplitude (volts) 0.6 V [facility] Thresh RA Capture Duration (ms) 0.5 ms [facility] Thresh RV Capture Amplitude (VOLTS) 0.4 V [facility] Thresh RV Capture Duration (MS) 0.5 ms [facility] Tracking Rate (bpm) 130 {beats}/min [facility] VF Zone Detection Interval 250 ms [facility] VF Zone Therapy Configuration 1 ATP(s) + 8 Shock(s) [facility] No Panel Informationon 05-08 BLANK _ [facility] ICD-ATRIALTACHYCARD IA 0 [facility] ICD-Fast Ventricular Tachycardia 0 [facility] Implant Date 03/24/2019 [facility] ICD REMOTE CHECKon 2 AV Delay Adaptive Paced Minimum (ms) 200 ms [facility] AV Delay Adaptive Sensed Minimum (ms) 170 ms [facility] Bj RA Pacing Amplitude (volts) 2 V [facility] Bj RA Pacing Polarity BI [facility] Bj RA Pacing Pulse Width (ms) 0.5 ms [facility] Bj RA Sensing Amplitude (mvolts) 0.25 mV [facility] Bj RA Sensing Polarity BI [facility] Bj RV Pacing Amplitude (volts) 2 V [facility] Bj RV Pacing Polarity BI [facility] Bj RV Pacing Pulse Width (ms) 0.5 ms [facility] Bj RV Sensing Amplitude (mvolts) 0.3 mV [facility] Bj RV Sensing Polarity BI [facility] Detection Configuration (Vent) 2 - Zone [facility] FastVT_Detection Interval 250 ms [facility] FastVT_Therapy Configuration 1 ATP(s) + 8 Shock(s) [facility] ICD FastVT DetectionStatus ENABLED [facility] ICD-AMS EPISODES 170 {beats}/min [facility] ICD-ATP Episodes (Vent) 0 [facility] ICD-ATRIALFIBRILLAT ION 19 [facility] ICD-ATRIALTACHYCARD IA 19 [facility] ICD-ATRIALTACHYCARD IA 4 [facility] ICD-Device Mfg BSX [facility] ICD-Fast Ventricular Tachycardia 4 [facility] ICD-LEADIMPEDANCEAT RIAL 734 ohm [facility] ICD-Percent Pacing (Atrial) 6 % [facility] ICD-Percent Pacing (Vent) 1 % [facility] ICD-Shocks Aborted (Vent) 0 [facility] [id number] D 0 [facility] ICD-SHOCKSABORTED 0 [facility] ICD-SHOCKSDELIVERED VENTRICULAR 0 [facility] ICD-Ventricular Fibrillation 0 [facility] Lead Impedance (RV) 427 ohm [facility] Lead Impedance High Voltage 48 ohm [facility] Lead1 Mfg BSX [facility] Lead2 Mfg X [facility] Location RV [facility] Location RA [facility] Lower Rate (bpm) 50 {beats}/min [facility] Max Sensor Rate (bpm) 130 {beats}/min [facility] MDT_PROG_TACHY_ZONE _DETECTIONS_STATUS ENABLED [facility] Model D142 INOGEN [facility] Model [address] [place] 4-Front [facility] Model 7741 Ingevity MRI [facility] Pacing Mode DDDR [facility] Serial Number [id number] [facility] Serial Number [id number] [facility] Serial Number [id number] [facility] Test Charge [employer] 23 J [facility] Test Charge Time 10 s [facility] Therapy Status (Vent) Enabled [facility] Thresh RA Capture Amplitude (volts) 0.6 V [facility] Thresh RA Capture Duration (ms) 0.5 ms [facility] Thresh RV Capture Amplitude (VOLTS) 0.4 V [facility] Thresh RV Capture Duration (MS) 0.5 ms [facility] Tracking Rate (bpm) 130 {beats}/min [facility] VF Zone Detection Interval 250 ms [facility] VF Zone Therapy Configuration 1 ATP(s) + 8 Shock(s) [facility] No Panel Informationon 02-06 BLANK _ [facility] ICD-ATRIALTACHYCARD IA 0 [facility] ICD-Fast Ventricular Tachycardia 0 [facility] Implant Date 03/24/[address] [facility] [address] Chest W contrast [place] IMPRESSION: [...] any questions regarding this interpretation, please call [phone]. If you are unable to reach us at the number above, please feel free to contact [facility] at [phone]. DIVISION OF RADIOLOGY * * *Final Report* * * DATE OF EXAM: Sep 13 2021 3:08PM [facility] 0539 - CT CHEST W IVCON / [...] nodules measuring less than 0.5 cm, with distribution sales representative examples detailed as follows on [...] No abnormality in the imaged upper abdomen. [facility] [employer] (topogram) images: No additional findings. DIVISION OF RADIOLOGY Provider, [facility] - 09/13/2021 * * *Final Report* * * DATE OF EXAM: Sep 13 2021 3:08PM [facility] 0539 - CT CHEST W IVCON / [...] nodules measuring less than 0.5 cm, with distribution sales representative examples detailed as follows on [...] No abnormality in the imaged upper abdomen. [facility] [employer] (topogram) images: No additional findings. IMPRESSION IMPRESSION: [...] any questions regarding this interpretation, please call [phone]. If you are unable to reach us at the number above, please feel free to contact [facility] eRadiology at [phone]. [facility] Radiology Study observation (narrative) [facility] CT Chest W contrast IVOrdere d By: [facility] Provider on 09-13-2021 [facility] C [place] 12-23-2018 Wound Culture Microbiology [...] Locations R1: This test was performed at: [employer], [address] [place] [address], [id number] , [facility] Comment on above: Performed By: #### [id number] #### [facility] [address] [place] [address] Coding Summary.on 12-23-2018 Coding Summary. CODING DATE: 019 FINAL [facility] STATUS: Home (Routine DC) PAYOR: Medicare [...] Tim CphT Date Saved: 12/23/2018 01:25 pm [facility] Vital Signs Date Time Vital Sign Value Performing Clinician Facility 03-01-2025 14:20-0400 Body height 182.9 cm Nj Wei MD Work Phone: [facility] 03-01-2025 14:20-0400 Body mass index (BMI) [Ratio] 23.6 kg/m2 Nj Wei MD Work Phone: [facility] 03-01-2025 14:20-0400 Body weight 78.93 kg Nj Wei MD Work Phone: [facility] 03-01-2025 14:20-0400 Diastolic blood pressure 76 mm[Hg] Nj otero MD Work Phone: [facility] 03-01-2025 14:20-0400 Heart rate 106 /min Nj Wei MD Work Phone: [facility] 03-01-2025 14:20-0400 Systolic blood pressure 105 mm[Hg] Nj Wei MD Work Phone: [facility] 12-03-2024 10:53-0400 Body height 182.9 cm Ayana Evans DPM Work Phone: [facility] 12-03-2024 10:53-0400 Body mass index (BMI) [Ratio] 21.7 kg/m2 Ayana Evans DPM Work Phone: [facility] 12-03-2024 10:53-0400 Body weight 72.58 kg Ayana Evans DPM Work Phone: [facility] 08-19-2024 13:26-0500 Body height 182.9 cm Carmela Fernandes MD Work Phone: [facility] 08-19-2024 13:26-0500 Body mass index (BMI) [Ratio] 23.06 kg/m2 Carmela Fernandes MD Work Phone: [facility] 08-19-2024 13:26-0500 Body weight 77.11 kg Carmela Fernandes MD Work Phone: [facility] 08-19-2024 13:26-0500 Diastolic blood pressure 56 mm[Hg] Carmela Fernandes MD Work Phone: [facility] 08-19-2024 13:26-0500 Heart rate 78 /min Carmela Fernandes MD Work Phone: [facility] 08-19-2024 13:26-0500 SaO2% (BldA) [Mass fraction] 97 % Carmela Fernandes MD Work Phone: [facility] Comment on above: 08-19-2024 13:26-0500 Systolic blood pressure 94 mm[Hg] Carmela Howell Work Phone: [facility] 08-19-2024 10:19-0500 Body height 182.9 cm Nj Wei MD Work Phone: [facility] 08-19-2024 10:19-0500 Body mass index (BMI) [Ratio] 23.06 kg/m2 Nj Wei MD Work Phone: [facility] 08-19-2024 10:19-0500 Body weight 77.11 kg Nj Wei MD Work Phone: [facility] 08-19-2024 10:19-0500 Diastolic blood pressure 56 mm[Hg] Nj otero MD Work Phone: [facility] 08-19-2024 10:19-0500 Heart rate 80 /min Nj Wei MD Work Phone: [facility] 08-19-2024 10:19-0500 Systolic blood pressure 108 mm[Hg] Nj Wei MD Work Phone: [facility] 03-31-2024 13:09-0400 Body mass index (BMI) [Ratio] 21.44 kg/m2 ARACELI Andrade MD Work Phone: [facility] 03-31-2024 13:09-0400 Body temperature 97.3 [degF] ARACELI Andrade MD Work Phone: [facility] 03-31-2024 13:09-0400 Body weight 79.9 kg ARACELI Andrade MD Work Phone: [facility] 03-31-2024 13:09-0400 Diastolic blood pressure 70 mm[Hg] ARACELI Andrade MD Work Phone: [facility] 03-31-2024 13:09-0400 Heart rate 67 /min ARACELI Andrade MD Work Phone: [facility] 03-31-2024 13:09-0400 Respiratory rate 16 /min ARACELI Andrade MD Work Phone: [facility] 03-31-2024 13:09-0400 SaO2% (BldA) [Mass fraction] 97 % ARACELI Andrade MD Work Phone: [facility] 03-31-2024 13:09-0400 Systolic blood pressure 115 mm[Hg] ARACELI Andrade MD Work Phone: [facility] 03-30-2024 14:56-0400 Body height 193 cm Efren Brady MD Work Phone: [facility] 03-30-2024 14:56-0400 Body mass index (BMI) [Ratio] 20.69 kg/m2 Efren Brady MD Work Phone: [facility] 03-30-2024 14:56-0400 Body weight 77.11 kg Efren Brady MD Work Phone: [facility] 03-30-2024 14:56-0400 Diastolic blood pressure 69 mm[Hg] Efren Brady MD Work Phone: [facility] 03-30-2024 14:56-0400 Heart rate 66 /min Efren Brady MD Work Phone: [facility] 03-30-2024 14:56-0400 Systolic blood pressure 125 mm[Hg] Efren Brady MD Work Phone: [facility] 03-04-2024 11:15-0400 SaO2% (BldA) [Mass fraction] 99 % SAMM THOMPSON [facility] Comment on above: Order Comment: Specimen Type: ARTERIAL B LOOD SPECIMENOrdering Facility: [facility] Address: [address] [place] [address] Performed By: #### A LLMG ####[facility]CL[facility] [id number] [place] [address] [place] 01-10-2024 10:58-0400 Diastolic blood pressure 78 mm[Hg] ARACELI Fernandes MD Work Phone: [facility] 01-10-2024 10:58-0400 Systolic blood pressure 122 mm[Hg] ARACELI Fernandes MD Work Phone: [facility] 01-10-2024 10:55-0400 Body height 182.9 cm ARACELI Fernandes MD Work Phone: [facility] 01-10-2024 10:55-0400 Body mass index (BMI) [Ratio] 22.51 kg/m2 ARACELI Fernandes MD Work Phone: [facility] 01-10-2024 10:55-0400 Body weight 75.3 kg ARACELI Fernandes MD Work Phone: [facility] 01-10-2024 10:55-0400 Heart rate 88 /min ARACELI Fernandes MD Work Phone: [facility] 01-10-2024 10:55-0400 Respiratory rate 14 /min ARACELI Fernandes MD Work Phone: [facility] 01-10-2024 10:55-0400 SaO2% (BldA) [Mass fraction] 97 % ARACELI Fernandes MD Work Phone: [facility] 12-26-2023 12:00-0400 Body height 182.9 cm Efren Brady MD Work Phone: [facility] 12-26-2023 12:00-0400 Body weight 77.11 kg Efren Brady MD Work Phone: [facility] 12-26-2023 12:00-0400 Diastolic blood pressure 64 mm[Hg] Efren Brady MD Work Phone: [facility] 12-26-2023 12:00-0400 Heart rate 78 /min Efren Brady MD Work Phone: [facility] 12-26-2023 12:00-0400 Respiratory rate 12 /min Efren Brady MD Work Phone: [facility] 12-26-2023 12:00-0400 SaO2% (BldA) [Mass fraction] 97 % Efren Brady MD Work Phone: [facility] 12-26-2023 12:00-0400 Systolic blood pressure 128 mm[Hg] Efren Brady MD Work Phone: [facility] 12-12-2023 13:38-0400 Body height 182.9 cm Carmelina Yoderr SHAREPOINT APPLICATION ARCHITECT.RUBBER COMPOUNDER FORMULATOR Work Phone: [facility] 12-12-2023 13:38-0400 Body weight 75.3 kg Carmelina Mayor SHAREPOINT APPLICATION ARCHITECT.RUBBER COMPOUNDER FORMULATOR Work Phone: [facility] 12-12-2023 13:38-0400 Diastolic blood pressure 76 mm[Hg] Carmelina Mayor SHAREPOINT APPLICATION ARCHITECT.RUBBER COMPOUNDER FORMULATOR Work Phone: [facility] 12-12-2023 13:38-0400 Heart rate 81 /min Carmelina Yoderr SHAREPOINT APPLICATION ARCHITECT.RUBBER COMPOUNDER FORMULATOR Work Phone: [facility] 12-12-2023 13:38-0400 Respiratory rate 18 /min Carmelina Yoderr SHAREPOINT APPLICATION ARCHITECT.RUBBER COMPOUNDER FORMULATOR Work Phone: [facility] 12-12-2023 13:38-0400 SaO2% (BldA) [Mass fraction] 97 % Carmelina Yoderr SHAREPOINT APPLICATION ARCHITECT.RUBBER COMPOUNDER FORMULATOR Work Phone: [facility] 12-12-2023 13:38-0400 Systolic blood pressure 117 mm[Hg] Carmelina Yoderr SHAREPOINT APPLICATION ARCHITECT.RUBBER COMPOUNDER FORMULATOR Work Phone: [facility] 10-29-2023 11:24-0500 Body height 182.9 cm Virgil Carrillo MD Work Phone: [facility] 10-29-2023 11:24-0500 Body weight 80.29 kg Virgil Carrillo MD Work Phone: [facility] 10-29-2023 11:24-0500 Diastolic blood pressure 62 mm[Hg] Virgil Carrillo MD Work Phone: [facility] 10-29-2023 11:24-0500 Heart rate 72 /min Virgil Carrillo MD Work Phone: [facility] 10-29-2023 11:24-0500 Respiratory rate 12 /min Virgil Carrillo MD Work Phone: [facility] 10-29-2023 11:24-0500 SaO2% (BldA) [Mass fraction] 98 % Virgil Carrillo MD Work Phone: [facility] 10-29-2023 11:24-0500 Systolic blood pressure 108 mm[Hg] Virgil Carrillo MD Work Phone: [facility] 04-26-2023 15:08-0400 Body height 182.9 cm Zahra Pierre MD Work Phone: [facility] 04-26-2023 15:08-0400 Body weight 83.92 kg Zahra Pierre MD Work Phone: [facility] 04-26-2023 15:08-0400 Diastolic blood pressure 62 mm[Hg] Zahra Pierre MD Work Phone: [facility] 04-26-2023 15:08-0400 Heart rate 73 /min Zahra Pierre MD Work Phone: [facility] 04-26-2023 15:08-0400 Respiratory rate 12 /min Zahra Pierre MD Work Phone: [facility] 04-26-2023 15:08-0400 SaO2% (BldA) [Mass fraction] 98 % Zahra Pierre MD Work Phone: [facility] 04-26-2023 15:08-0400 Systolic blood pressure 116 mm[Hg] Zahra Pierre MD Work Phone: [facility] 10-25-2022 15:44-0500 Body height 182.9 cm Zahra Pierre MD Work Phone: [facility] 10-25-2022 15:44-0500 Body weight 83.92 kg Zahra Pierre MD Work Phone: [facility] 10-25-2022 15:44-0500 Diastolic blood pressure 66 mm[Hg] Zahra Pierre MD Work Phone: [facility] 10-25-2022 15:44-0500 Heart rate 74 /min Zahra Pierre MD Work Phone: [facility] 10-25-2022 15:44-0500 SaO2% (BldA) [Mass fraction] 98 % Zahra Pierre MD Work Phone: [facility] 10-25-2022 15:44-0500 Systolic blood pressure 116 mm[Hg] Zahra Pierre MD Work Phone: [facility] 10-02-2022 13:10-0500 Body temperature 96.69 [degF] ARACELI Andrade MD Work Phone: [facility] 10-02-2022 13:10-0500 Body weight 86.18 kg ARACELI Andrade MD Work Phone: [facility] 10-02-2022 13:10-0500 Diastolic blood pressure 71 mm[Hg] ARACELI Andrade MD Work Phone: [facility] 10-02-2022 13:10-0500 Heart rate 66 /min ARACELI Andrade MD Work Phone: [facility] 10-02-2022 13:10-0500 Respiratory rate 18 /min ARACELI Andrade MD Work Phone: [facility] 10-02-2022 13:10-0500 SaO2% (BldA) [Mass fraction] 98 % ARACELI Andrade MD Work Phone: [facility] 10-02-2022 13:10-0500 Systolic blood pressure 113 mm[Hg] ARACELI Andrade MD Work Phone: [facility] 09-03-2022 11:35-0500 Body height 182.9 cm John Jefferson MD Work Phone: [facility] 09-03-2022 11:35-0500 Body temperature 97.9 [degF] John Jefferson MD Work Phone: [facility] 09-03-2022 11:35-0500 Body weight 84.01 kg John Jefferson MD Work Phone: [facility] 09-03-2022 11:35-0500 Diastolic blood pressure 78 mm[Hg] John Jeffesron MD Work Phone: [facility] 09-03-2022 11:35-0500 Heart rate 82 /min John Jefferson MD Work Phone: [facility] 09-03-2022 11:35-0500 Respiratory rate 18 /min John Jefferson MD Work Phone: [facility] 09-03-2022 11:35-0500 SaO2% (BldA) [Mass fraction] 98 % John Jefferson MD Work Phone: [facility] 09-03-2022 11:35-0500 Systolic blood pressure 133 mm[Hg] John Jefferson MD Work Phone: [facility] 06-06-2022 14:32-0400 Body height 182.9 cm Zahra Pierre MD Work Phone: [facility] 06-06-2022 14:32-0400 Body weight 76.66 kg Zahra Pierre MD Work Phone: [facility] 06-06-2022 14:32-0400 Diastolic blood pressure 63 mm[Hg] Zahra Pierre MD Work Phone: [facility] 06-06-2022 14:32-0400 Heart rate 71 /min Zahra Pierre MD Work Phone: [facility] 06-06-2022 14:32-0400 SaO2% (BldA) [Mass fraction] 97 % Zahra Pierre MD Work Phone: [facility] 06-06-2022 14:32-0400 Systolic blood pressure 101 mm[Hg] Zahra Pierre MD Work Phone: [facility] 12-11-2021 13:58-0400 Body temperature 97.11 [degF] ARACELI Andrade MD Work Phone: [facility] 12-11-2021 13:58-0400 Body weight 82.1 kg ARACELI Andrade MD Work Phone: [facility] 12-11-2021 13:58-0400 Diastolic blood pressure 78 mm[Hg] ARACELI Andrade MD Work Phone: [facility] 12-11-2021 13:58-0400 Heart rate 80 /min ARACELI Andrade MD Work Phone: [facility] 12-11-2021 13:58-0400 Respiratory rate 18 /min ARACELI Andrade MD Work Phone: [facility] 12-11-2021 13:58-0400 SaO2% (BldA) [Mass fraction] 99 % ARACELI Andrade MD Work Phone: [facility] 12-11-2021 13:58-0400 Systolic blood pressure 130 mm[Hg] NA Raymond YOUNG Work Phone: [facility] Encounters Encounter Date Encounter Type Care Provider Facility Start: 03-02-2025 End: 03-02-2025 Telephone encounter Nj Wei MD Work Phone: Cardiology Comment on above: Schedule Surgery (EP S-DCC) Start: 03-01-2025 End: 03-01-2025 ambulatory LUÍS SKINNER Facility:[facility] Start: 03-01-2025 End: 03-01-2025 Patient encounter procedure Nj Wei MD Work Phone: Cardiology Comment on above: 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 (Primary Dx); 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; Acute on chronic systolic congestive heart failure (HCC); S/P CABG (coronary artery bypass graft); Cardiomyopathy, ischemic; Frequent PVCs; VT (ventricular tachycardia) (HCC); ICD (implantable cardioverter-defibrillator) discharge; 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 kidney disease, unspecified CKD stage, unspecified whether correction insulin use (HCC); Stage 3b chronic kidney disease (HCC); Paroxysmal atrial fibrillation (HCC); 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 (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) use of anticoagulants Start: 03-01-2025 End: 03-01-2025 [facility] Facility:[facility] Start: 03-01-2025 End: 03-01-2025 Subsequent hospital visit by physician [facility] Work Phone: Cardiology Comment on above: Pacemaker reprogramm ing/check [Z45.018] Start: 03-01-2025 End: 03-01-2025 ambulatory [facility] Facility:[facility] Start: 01-26-2025 End: 01-26-2025 Telephone encounter Carmela Fernandes MD Work Phone: Cardiology Start: 01-11-2025 End: 01-11-2025 ambulatory [facility] Start: 12-21-2024 End: 12-21-2024 ambulatory Carmela Fernandes MD Work Phone: Cardiology Comment on above: Chronic systolic (co ngestive) heart failure (HCC) (Primary Dx); End stage heart failure (HCC) [I50.84] Start: 12-21-2024 End: 12-21-2024 Telemedicine consultation with patient Carmela Fernandes MD Work Phone: Cardiology Start: 12-15-2024 End: 02-14-2025 Follow-up encounter Carmela Fernandes MD Work Phone: Cardiology Start: 12-08-2024 End: 12-08-2024 ambulatory CARMELA FERNANDES Facility:[facility] Start: 12-03-2024 End: 12-03-2024 Bamboo flowsheet Ayana Evans DPM Work Phone: [facility] Start: 12-03-2024 End: 12-03-2024 [facility] DPM Work Phone: [facility] Start: 12-03-2024 End: 12-03-2024 Telephone encounter Nj Wei MD Work Phone: Cardiology Comment on above: Medication Question Start: 12-03-2024 End: 12-03-2024 ambulatory AYANA EVANS Not Available Start: 12-03-2024 End: 12-03-2024 Office outpatient new 30 minutes Ayana Evans DPM Work Phone: [facility] Comment on above: Dystrophic nail (Ami sandeep Dx); Pain around toenail, right foot; Pain around toenail, left foot; Peripheral arterial disease (CMS/HCC) Start: 11-18-2024 End: 11-18-2024 ambulatory DIRK SANDERS [facility] Start: 10-17-2024 End: 11-04-2024 Subsequent hospital visit by physician Dirk Sanders DO Work Phone: [facility] Start: 10-16-2024 Evaluation and management of inpatient [facility] Start: 10-14-2024 [facility] of [facility] Start: 10-08-2024 End: 10-08-2024 Telephone encounter Nj Wei MD Work Phone: Cardiology Comment on above: Medication Problem Start: 10-07-2024 End: 10-07-2024 Telephone encounter jN Wei MD Work Phone: Cardiology Comment on above: Patient Question Start: 10-02-2024 Evaluation and management of inpatient HARI [facility] Start: 09-30-2024 Evaluation and management of inpatient HARI [facility] Start: 09-29-2024 Evaluation and management of inpatient HARI [facility] Start: 09-29-2024 End: 09-29-2024 ambulatory Carmela Fernandes MD Work Phone: Cardiology Comment on above: Medication questions , possible Norovirus Start: 09-29-2024 Emergency department patient visit JOSÉ MGIUEL ANITA [facility] Start: 09-29-2024 End: 10-17-2024 Evaluation and management of inpatient HARI [facility] Start: 09-22-2024 End: 09-22-2024 Evaluation and management of inpatient NJ DEVEN Facility:[facility] Start: 09-22-2024 End: 09-22-2024 Evaluation and management of inpatient [place] DEVEN Facility:[facility] Start: 09-21-2024 End: 09-21-2024 Evaluation and management of inpatient Fuentes Wheat DO Work Phone: Cardiology Start: 09-18-2024 End: 09-18-2024 Evaluation and management of inpatient [facility] Work Phone: Cardiology Start: 09-17-2024 End: 09-25-2024 Evaluation and management of inpatient SAMM M DONNA Facility:[facility] Start: 09-17-2024 End: 09-17-2024 Telephone encounter Alta Dempsey RN Cardiology Comment on above: Ventricular Tachycar ben Start: 09-17-2024 ambulatory SAMM THOMPSON [facility] Start: 09-10-2024 End: 09-10-2024 ambulatory SAMM THOMPSON Facility:[facility] Start: 09-10-2024 End: 09-11-2024 Telephone encounter Carmela Fernandes MD Work Phone: Cardiology Comment on above: Advice Only Start: 09-07-2024 End: 09-07-2024 Telephone encounter Nj Wei MD Work Phone: Cardiology Comment on above: Patient Update Start: 09-03-2024 End: 09-03-2024 Telephone encounter Nj Wei MD Work Phone: Cardiology Start: 08-31-2024 End: 08-31-2024 ambulatory CARMELA FERNANDES Facility:[facility] Start: 08-28-2024 End: 08-28-2024 Telephone encounter [...] acute systolic (HCC); 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); Carotid stenosis, 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, left; 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; Acute on chronic systolic congestive heart failure (HCC); S/P CABG (coronary artery bypass graft); Paroxysmal atrial fibrillation (HCC) Amaurosis fugax (Ami sandeep Dx); Heart failure, acute systolic (HCC); Acute on chronic systolic congestive heart failure (HCC); PVD (peripheral vascular disease) (HCC); S/P CABG (coronary artery bypass graft) Start: 08-19-2024 ambulatory [place] WEI Facili ty:[facility] Start: 08-19-2024 End: 08-19-2024 Subsequent hospital visit by physician [facility] Work Phone: Cardiology Comment on above: Pacemaker reprogramm ing/check [Z45.018] Start: 08-19-2024 End: 08-19-2024 ambulatory [facility] Work Phone: Cardiology Comment on above: Holter Monitor Appli cation (12-lead 48-HR) Start: 08-18-2024 End: 01-12-2025 Orders Only Luís Skinner APRN.RUBBER COMPOUNDER FORMULATOR Work Phone: Neurology [facility] Comment on above: Carotid stenosis, sy mptomatic w/o infarct, left (Primary Dx) Counseling (New orde r is needed for the patient to return to Cardiac Rehab at [facility].) Start: 08-17-2024 End: 08-17-2024 Telephone encounter Nj [...] Dx) Start: 07-24-2024 End: 07-27-2024 Orders Only Yovanyn Gentile MD Work Phone: [facility] [id number] Comment on above: PVC (premature ventr icular contraction) (Primary Dx) Holter Monitor Appli cation (48 Hours) Start: 07-23-2024 End: 07-23-2024 Evaluation and management of inpatient [facility] Facility:[facility] Start: 07-21-2024 End: 07-26-2024 Evaluation and management of inpatient [facility] Facility:[facility] Start: 07-21-2024 End: 07-21-2024 ambulatory Carmela Fernandes MD Work Phone: Cardiology Comment on above: labs - urgent Start: 07-15-2024 ambulatory [facility] HOSPITAL PHYSICIAN [facility] Start: 07-13-2024 [facility] Start: 07-09-2024 End: 07-09-2024 [facility] Start: 07-08-2024 End: 07-08-2024 Clinical Support [facility] Cardiac Rehab [facility] Start: 07-06-2024 End: 07-06-2024 [facility] Start: 07-02-2024 End: 07-02-2024 Clinical Support [facility] Cardiac Rehab [facility] Start: 07-01-2024 End: 07-01-2024 Clinical Support [facility] Cardiac Rehab [facility] Start: 06-29-2024 End: 06-29-2024 Clinical Support [facility] Cardiac Rehab [facility] Start: 06-25-2024 End: 06-25-2024 [facility] Start: 06-24-2024 End: 06-24-2024 Clinical Support [facility] Cardiac Rehab [facility] Comment on above: S/P AVR (aortic valv e replacement) Start: 06-23-2024 End: 06-23-2024 ambulatory [facility] ACCESS HOSPITAL PHYSICIAN [facility] Start: 06-19-2024 End: 06-19-2024 Refill Carmela Fernandes MD Work Phone: Cardiology Comment on above: Rx Refills Start: 06-15-2024 End: 06-16-2024 Refill Carmela Fernandes MD Work Phone: Cardiology Comment on above: Rx Refills Start: 06-10-2024 End: 06-10-2024 Refill Sandrine Arteaga MD Work Phone: [place] [phone] Comment on above: Refill Request Start: 06-02-2024 End: 06-02-2024 Telephone encounter Crys Crowder CASTING MACHINE SET UP OPERATOR Hematology/Oncology Start: 06-01-2024 End: 06-01-2024 Telemedicine consultation with patient Carmela Fernandes MD Work Phone: Cardiology Start: 06-01-2024 End: 06-01-2024 ambulatory Carmela Fernandes MD Work Phone: Cardiology Comment on above: Chronic systolic hea rt failure (HCC) (Primary Dx); Non-rheumatic mitral regurgitation Start: 05-20-2024 End: 06-02-2024 Telephone encounter Carmela Fernandes MD Work Phone: Cardiology Comment on above: Follow Up Start: 05-14-2024 End: 05-17-2024 ambulatory [facility] Start: 05-13-2024 End: 05-17-2024 ambulatory [facility] Start: 05-11-2024 End: 05-17-2024 ambulatory [facility] Start: 05-09-2024 End: 05-16-2024 Evaluation and management of inpatient JAMIE HEREDIA Facility:[facility] Start: 05-06-2024 End: 05-09-2024 Evaluation and management of inpatient CHERYL YOANA Facility:[facility] Start: 05-06-2024 End: 05-17-2024 ambulatory [facility] Start: 05-06-2024 End: 05-08-2024 Telephone encounter Paulina Fernandes MD Work Phone: Cardiology Comment on above: Follow Up Start: 05-06-2024 End: 05-17-2024 ambulatory [facility] Start: 05-04-2024 End: 05-17-2024 [facility] Start: 04-30-2024 ambulatory Allyn Katz RN CLINICAL INVEST UNIT Start: 04-30-2024 Patient encounter procedure Allyn Katz RN CLINICAL INVEST UNIT Start: 04-29-2024 End: 05-17-2024 ambulatory Allyn Katz RN CLINICAL INVEST UNIT Start: 04-29-2024 End: 04-29-2024 Patient encounter procedure Allyn Katz RN CLINICAL INVEST UNIT Start: 04-27-2024 End: 04-27-2024 ambulatory [facility] Start: 04-23-2024 End: 05-17-2024 [facility] Start: 04-22-2024 End: 05-17-2024 [facility] Start: 04-20-2024 End: 04-20-2024 Clinical Support [facility] Cardiac Rehab [facility] Start: 04-16-2024 End: 04-16-2024 Clinical Support [facility] 00 Cardiac Rehab [facility] Start: 04-15-2024 End: 04-15-2024 Clinical Support [facility] 00 Cardiac Rehab [facility] Start: 04-13-2024 End: 04-13-2024 Clinical Support [facility] 00 Cardiac Rehab [facility] Start: 04-09-2024 End: 04-09-2024 Clinical Support [facility] 00 Cardiac Rehab [facility] Start: 04-08-2024 End: 04-16-2024 [facility] Start: 04-06-2024 End: 04-06-2024 ambulatory [facility] Facility:[facility] Start: 04-06-2024 End: 04-16-2024 ambulatory [facility] Start: 04-03-2024 Telephone encounter Luís Castle rczyk SHAREPOINT APPLICATION ARCHITECTMORA Work Phone: Neurology [facility] Comment on above: Medication Problem Start: 04-01-2024 End: 04-01-2024 Telephone encounter Crys SHEEHAN Hematology/Oncology Start: 04-01-2024 End: 04-16-2024 ambulatory [facility] Start: 03-31-2024 End: 03-31-2024 Telemedicine consultation with patient Paulina Fernandes MD Work Phone: Cardiology Start: 03-31-2024 End: 03-31-2024 ambulatory Paulina Fernandes MD Work Phone: Cardiology Comment on above: 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coronary bypass graft of ekuk heart without angina pectoris (Primary Dx); Chronic systolic heart failure (HCC); S/P CABG (coronary artery bypass graft); Non-rheumatic mitral regurgitation; Severe mitral regurgitation Start: 03-31-2024 End: 03-31-2024 Patient encounter procedure Yung Andrade MD Work Phone: Radiation Oncology Comment on above: History of prostate cancer (Primary Dx) Start: 03-30-2024 End: 03-30-2024 [facility] Facility:[facility] Start: 03-30-2024 End: 03-30-2024 [facility] Facility:[facility] Start: 03-30-2024 End: 03-30-2024 Patient encounter procedure Efren Brady MD Work Phone: Cardiology Comment on above: Cardiomyopathy, isch emic (Primary Dx); S/P mitral valve clip implantation; Stage 3b chronic kidney disease (HCC) Start: 03-30-2024 Telephone encounter Efren Brady MD Work Phone: Cardiology Comment on above: Medication Assistanc e Program Start: 03-30-2024 End: 03-30-2024 [facility]ulatory [facility] Facility:[facility] Start: 03-30-2024 End: 04-16-2024 ambulatory [facility] Start: 03-26-2024 End: 03-26-2024 Clinical Support [facility] 00 Cardiac Rehab [facility] Comment on above: Arrived Start: 03-25-2024 End: 03-25-2024 Clinical Support [facility] 00 Cardiac Rehab [facility] Comment on above: Arrived Start: 03-24-2024 End: 03-24-2024 ambulatory SAMM THOMPSON Facility:[facility] Start: 03-23-2024 End: 03-23-2024 Clinical Support [facility] 30 Cardiac Rehab [facility] Start: 03-18-2024 End: 03-18-2024 ambulatory Luís Skinner APRNTitusRUBBER COMPOUNDER FORMULATOR Work Phone: Neurology [facility] Comment on above: Amaurosis fugax (Ami sandeep Dx); Carotid stenosis, 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, left; Atrial fibrillation, unspecified type (HCC); Mixed hyperlipidemia; Essential hypertension Start: 03-18-2024 End: 03-18-2024 Telemedicine consultation with patient Luís Skinner APRN.RUBBER COMPOUNDER FORMULATOR Work Phone: Neurology [facility] Start: 03-06-2024 ambulatory Gavi Childress MD Work Phone: [facility] Start: 03-05-2024 End: 03-05-2024 Evaluation and management of inpatient GAVI CHILDRESS Facility:[facility] Start: 03-03-2024 End: 03-03-2024 Evaluation and management of inpatient GAVI CHILDRESS Facility:[facility] Start: 03-02-2024 End: 03-02-2024 Evaluation and management of inpatient Susi Whitehead OD Work Phone: Ophthalmology Comment on above: Cerebrovascular acci 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) (Primary Dx); Cataract, nuclear sclerotic senile, bilateral Start: 03-02-2024 End: 03-02-2024 ambulatory ZAHRA LEON [facility] Start: 02-28-2024 Telephone encounter Neurology [facility] Cerebrovascular Center Comment on above: Patient Update (Pre admission ) Start: 02-27-2024 Chart abstracting Aravind Arriaga MD Work Phone: Neurosurgery Comment on above: Amaurosis fugax Start: 02-27-2024 Telephone encounter Shannon Paulina Mcnair SHAREPOINT APPLICATION ARCHITECT.RUBBER COMPOUNDER FORMULATOR Work Phone: Cardiothoracic Comment on above: Patient Update Start: 02-26-2024 End: 03-01-2024 Emergency department patient visit ZAHRA [facility] Start: 02-17-2024 End: 02-17-2024 Evaluation and management of inpatient Isreal Rain MD Work Phone: Dentistry Comment on above: Dental caries (Prima ry Dx); Pre-operative clearance; Non-rheumatic mitral regurgitation; Severe mitral regurgitation Start: 02-17-2024 End: 02-17-2024 Preoperative state Isreal Rain MD Work Phone: [facility] Work Phone: Start: 02-17-2024 Orders Only Zuleyma Tineo APR N.RUBBER COMPOUNDER FORMULATOR Work Phone: Cardiology Comment on above: 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) (Primary Dx) Start: 02-14-2024 ambulatory Research Nurse Card Intervention [facility] Work Phone: Cardiology Comment on above: M-AZAEL [facility]ra[facility] ed Start: 02-13-2024 ambulatory Mattie duffy SHAREPOINT APPLICATION ARCHITECT.RUBBER COMPOUNDER FORMULATOR Work Phone: Cardiology Comment on above: TMTT Meeting 02/13 Start: 02-12-2024 ambulatory Fuentes Arana SHAREPOINT APPLICATION ARCHITECT.UTILITY PERSON Work Phone: Cardiology Start: 02-12-2024 Telephone encounter Fuentes truong SHAREPOINT APPLICATION ARCHITECT.UTILITY PERSON Work Phone: Cardiology Comment on above: Patient Update Start: 02-11-2024 Telephone encounter Research N urse Card Intervention [facility] Work Phone: Cardiology Start: 02-05-2024 End: 02-05-2024 Nursing evaluation of patient and report Research Nurse Card Intervention [facility] Work Phone: Cardiology Comment on above: EMPOWER Trial IRB# [id number] Screening visit (Primary Dx) Start: 02-05-2024 End: 02-05-2024 Patient encounter procedure Research Nurse Card Intervention [facility] Work Phone: [facility] Start: 02-03-2024 End: 02-03-2024 Clinical Support [facility] 30 Cardiac Rehab [facility] Start: 01-30-2024 End: 01-30-2024 Nursing evaluation of patient and report Research Nurse Card Intervention [facility] Work Phone: Cardiology Comment on above: Empower Study (Primary Dx) Severe mitral regurg itation (Primary Dx); Examination of participant in clinical trial; SANTILLAN (dyspnea on exertion) Start: 01-30-2024 Patient encounter procedure Andrés Savage MD Work Phone: [facility] Start: 01-30-2024 End: 01-30-2024 Patient entered into trial Research Nurse Card Intervention [facility] Work Phone: [facility] Start: 01-29-2024 End: 01-29-2024 Clinical Support Pm 30 Cardiac Rehab [facility] Start: 01-28-2024 Orders Only Virgil Howell Work Phone: Cardiology Comment on above: Severe mitral regurg itation (Primary Dx); Status post implantation of mitral valve leaflet clip Start: 01-27-2024 End: 01-27-2024 Clinical Support Pm 30 Cardiac Rehab [facility] Start: 01-23-2024 End: 01-23-2024 Clinical Support Pm 30 Cardiac Rehab [facility] Start: 01-22-2024 End: 01-22-2024 Clinical Support Pm 30 Cardiac Rehab [facility] Start: 01-20-2024 End: 01-20-2024 Clinical Support Pm 30 Cardiac Rehab [facility] Start: 01-16-2024 End: 01-16-2024 Clinical Support Pm 30 Cardiac Rehab [facility] Start: 01-15-2024 End: 01-15-2024 Clinical Support [facility] 30 Cardiac Rehab [facility] Start: 01-14-2024 Telephone encounter Paulina Fernandes MD Work Phone: Cardiology Comment on above: Medication Question (Patient is asking if after reviewing labs are there any medication changes?) Start: 01-10-2024 End: 01-10-2024 Nursing evaluation of patient and report Research Nurse Card Intervention [facility] Work Phone: Cardiology Comment on above: IRB 18-600 Empower A ssessment of the CARILLON Mitral Contour System in Treating Functional Mitral Regurgitation Associated with Heart Failure PI: Hussein (Primary Dx) Start: 01-10-2024 End: 01-10-2024 Patient entered into trial Research Nurse Card Intervention [facility] Work Phone: [facility] Start: 01-10-2024 End: 01-10-2024 Patient encounter procedure Paulina Fernandes MD Work Phone: Cardiology Comment on above: 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) (Primary Dx); Coronary artery disease involving coronary bypass graft of ek[place] heart with angina pectoris (HCC); Chronic systolic heart failure (HCC); S/P CABG (coronary artery bypass graft); Chronic 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); Acute on chronic clinical systolic heart failure (HCC); Stage 3b chronic kidney disease (HCC); Ischemic cardiomyopathy; Non-ischemic cardiomyopathy (HCC); Shortness of breath; Unspecified severe protein-calorie malnutrition (HCC) Start: 01-09-2024 End: 01-09-2024 Clinical Support [facility] 30 Cardiac Rehab [facility] Start: 01-06-2024 End: 01-06-2024 Clinical Support [facility] 30 Cardiac Rehab [facility] Start: 01-02-2024 End: 01-02-2024 Nursing evaluation of patient and report Research Nurse Card Intervention [facility] Work Phone: Cardiology Comment on above: IRB 18-600 Empower A ssessment of the CARILLON Mitral Contour System in Treating Functional Mitral Regurgitation Associated with Heart Failure PI: Johnyaimeekenjierma (Primary Dx) Start: 01-02-2024 End: 01-02-2024 Patient entered into trial Research Nurse Card Intervention [facility] Work Phone: [facility] Start: 01-02-2024 Telephone encounter Research N urse Card Intervention [facility] Work Phone: Cardiology Comment on above: Appointment; Patient Update Start: 01-01-2024 End: 01-01-2024 Nursing evaluation of patient and report Research Nurse Card Intervention [facility] Work Phone: Cardiology Comment on above: Study name: EMPOWER Trial IRB# [id number] (Primary Dx) Start: 01-01-2024 End: 01-01-2024 Patient entered into trial Research Nurse Card Intervention [facility] Work Phone: [facility] Start: 12-30-2023 End: 12-30-2023 Nursing evaluation of patient and report Research Nurse Card Intervention Mn Work Phone: Cardiology Comment on above: IRB 18-600 Empower A ssessment of the CARILLON Mitral Contour System in Treating Functional Mitral Regurgitation Associated with Heart Failure PI: Rubéntati (Primary Dx) Start: 12-30-2023 End: 12-30-2023 Patient entered into trial Research Nurse Card Intervention [facility] Work Phone: [facility] Start: 12-26-2023 ambulatory Kristina Ceja APRN.CNP Work Phone: Cardiology Comment on above: TMTT Meeting Start: 12-26-2023 End: 12-26-2023 Patient encounter procedure Efren Brady MD Work Phone: Cardiology Comment on above: Severe mitral regurg itation (Primary Dx); Cardiomyopathy, ischemic; S/P CABG (coronary artery bypass graft); Sore throat; Unspecified severe protein-calorie malnutrition (HCC) Start: 12-25-2023 End: 12-25-2023 ambulatory BEKA [facility] Start: 12-22-2023 Follow-up encounter Rubén Carney ba, MD Work Phone: [facility] Start: 12-22-2023 ICD Remote F/U Rubén Howell Work Phone: [facility] Department Start: 12-19-2023 End: 12-19-2023 Clinical Support Pm Cardiac Rehab Exercise 1 [facility] Start: 12-17-2023 Telephone encounter Virgil Pacheco nd, MD Work Phone: Cardiology Comment on above: Cardiac Rehab Start: 12-12-2023 End: 12-12-2023 Patient encounter procedure Carmelina Whaley Mayor SHAREPOINT APPLICATION ARCHITECT.RUBBER COMPOUNDER FORMULATOR Work Phone: Cardiology Comment on above: Mitral valve insuffi ciency, unspecified etiology (Primary Dx); HFrEF (heart failure with reduced ejection fraction) (HCC); SOB (shortness of breath); Hx of CABG; 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; Essential hypertension Start: 12-02-2023 End: 12-02-2023 ambulatory [facility] Start: 11-26-2023 Telephone encounter Virgil Pacheco nd, MD Work Phone: Cardiology Comment on above: Patient Update Atherosclerosis of n ative coronary artery, unspecified whether angina present, unspecified whether ekuk or transplanted heart (Primary Dx) Start: 11-25-2023 Follow-up encounter Rubén Carney ba, MD Work Phone: [facility] Start: 11-25-2023 ICD Remote F/U Rubén Howell Work Phone: [facility] Department Start: 11-22-2023 Evaluation and management of inpatient CHARU MARTIN [facility] Start: 11-21-2023 Evaluation and management of inpatient JUAN PABLO TAVARES [facility] Start: 11-19-2023 End: 11-25-2023 Evaluation and management of inpatient RAMA MIKE [facility] Start: 11-18-2023 End: 11-18-2023 ambulatory [facility] Start: 10-29-2023 End: 10-29-2023 Patient encounter procedure Virgil Carrillo MD Work Phone: Cardiology Comment on above: Chronic combined sys tolic and diastolic congestive heart failure (HCC) (Primary Dx); 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; Essential hypertension; Hx of CABG; Mixed hyperlipidemia; Systolic heart failure, unspecified HF chronicity (HCC); 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 kidney disease, unspecified CKD stage, unspecified whether correction insulin use (HCC); PVD (peripheral vascular disease) (HCC); 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); Mitral valve insufficiency, unspecified etiology Start: 08-27-2023 Telephone encounter Virgil Pacheco nd, [...] kidney disease, unspecified CKD stage, unspecified whether watermelon inspector insulin use (HCC) (Primary Dx); PVD (peripheral vascular disease) (HCC); 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) Start: 02-21-2023 Follow-up encounter Rubén Carney ba, MD Work Phone: [facility] Start: 02-21-2023 ICD Remote F/U Rubén Howell Work Phone: [facility] Department Start: 02-08-2023 End: 02-09-[address] DOCTOR CARRIZALES Facility: Start: 12-03-2022 Orders Only Zahra Pierre MD Work Phone: Cardiology Start: 11-29-2022 Patient encounter procedure John Jefferson MD Work Phone: Vascular Surg Dept Start: 11-29-2022 Telephone encounter John carrillo MD Work Phone: Vascular Surg Dept Comment on above: Surgery Cancelled Start: 11-06-2022 Follow-up encounter Rubén Carney ba, MD Work Phone: [facility] Start: 11-06-2022 ICD Remote F/U Rubén Howell Work Phone: [facility] Department Start: 10-31-2022 Telephone encounter John carrillo MD Work Phone: Vascular Surg Dept Comment on above: Appointment Start: 10-25-2022 End: 10-25-2022 Patient encounter procedure Zahra Pierre MD Work Phone: Cardiology Comment on above: 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ekuk coronary artery of ek[place] heart without angina pectoris (Primary Dx); Heart [...] MALAIKA ANDRADE Facility:[facility]1 Start: 09-07-2022 Telephone encounter aZhra mata MD Work Phone: Cardiology Comment on above: Nm Pet Request Start: 09-06-2022 Orders Only Zhara Pierre MD Work Phone: Cardiology Comment on above: Chronic systolic hea rt failure (HCC) (Primary Dx); 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 Start: 09-03-2022 End: 09-03-2022 Patient encounter procedure John Jefferson MD Work Phone: Vascular Surg Dept Comment on above: 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ekuk coronary artery of ek[place] heart without angina pectoris (Primary Dx); Heart failure, acute systolic (HCC); Mixed hyperlipidemia; Stenosis of left carotid artery; Cerebrovascular acci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); Chronic 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); Carotid stenosis, asymptomatic, bilateral Start: 08-30-2022 End: 08-31-2022 ambulatory MALAIKA RIVERAWHITNEY Facility:[facility] Start: 08-07-2022 Follow-up encounter Rubén Carney ba, MD Work Phone: [facility] Start: 08-07-2022 ICD Remote F/U Rubén Howell Work Phone: [facility] Department Start: 08-03-2022 Orders Only John Howell Work Phone: Vascular Surg Dept Comment on above: Bilateral carotid ar annalee stenosis (Primary Dx) Start: 08-01-2022 Telephone encounter Samm Thompson MD Work Phone: [place] Comment on above: Appointment Start: 07-30-2022 Telephone encounter Samm Thompson MD Work Phone: NOC Comment on [...] Encounter for preprocedural laboratory examination MALAIKA FAUST [facility] Start: 06-14-2022 End: 06-15-2022 Encounter for preprocedural laboratory examination DR SAMM THOMPSON . Facility:[facility] Start: 06-14-2022 End: 06-15-[address] SAMM THOMPSON . Facility: Start: 06-07-2022 End: 09-18-[address] SAMM THOMPSON . Facility: Start: 06-06-2022 End: 06-06-2022 Orders Only Zahra Pierre MD Work Phone: Cardiology Comment on above: Chronic systolic hea rt failure (HCC) (Primary Dx) Mitral valve insuffi ciency, unspecified etiology (Primary Dx); Chronic systolic heart failure (HCC) Start: 05-17-2022 End: 05-24-2022 Evaluation and management of inpatient SHARON NEVA Facility:[facility] Start: 05-16-2022 End: 05-17-2022 ambulatory SHARON HOOKS . Facility: Start: 05-14-2022 End: 05-15-[address] SAMM THOMPSON . Facility: Start: 05-08-2022 Follow-up encounter Rubén Carney ba, MD Work Phone: [facility] Start: 05-08-2022 ICD Remote F/U Rubén Howell Work Phone: [facility] Department Start: 04-26-2022 End: 04-26-2022 ambulatory Yung Denilson Andrade MD Work Phone: Radiation Oncology Comment on above: Malignant neoplasm o f prostate (HCC) (Primary Dx) Start: 04-26-2022 End: 04-26-2022 Telemedicine consultation with patient Yung Denilson Andrade MD Work Phone: [place] Start: 02-06-2022 Follow-up encounter Rubén Carney ba, MD Work Phone: [facility] Start: 02-06-2022 ICD Remote F/U Rubén Howell Work Phone: [facility] Department Start: 01-15-2022 Orders Only Carlos Barone RN Dominick tology/Oncology Comment on above: Unspecified hypothyr oidism (Primary Dx); Hypercholesterolemia; Abnormal finding of blood chemistry, unspecified Start: 01-03-2022 Patient encounter procedure G Denilson Andrade MD Work Phone: [place] Start: 01-03-2022 Radiation Oncology Note G Navin Andrade MD Work Phone: Radiation Oncology Comment on above: Completion Note Start: 12-18-2021 Patient encounter procedure Yung Denilson Andrade MD Work Phone: [place] Start: 12-18-2021 Radiation Oncology Note G Navin Andrade MD Work Phone: Radiation Oncology Comment on above: Completion Note Start: 12-11-2021 End: 12-11-2021 Patient encounter procedure Yung Denilson Andrade MD Work Phone: Radiation Oncology Comment on above: Malignant neoplasm o f prostate (HCC) (Primary Dx) Start: 10-12-2021 End: 10-12-2021 Subsequent hospital visit by physician Yung Andrade MD Work Phone: Radiology Pet CT Start: 09-13-2021 End: 09-13-2021 Subsequent hospital visit by physician Arrival Time Radiology Work Phone: Radiology Pet CT Start: 04-30-2012 Patient encounter status ARACELI phillips MD Work Phone: [facility] Work Phone: Start: 04-28-2012 End: 05-01-2012 Preprocedural examination done Research Mn Work Phone: [facility] Procedures Date Procedure Procedure Detail Performing Clinician Start: 03-01-2025 Prgrmg eval implanta ble in prsn dual lead dfb [facility] [place] Provider Start: 12-08-2024 Echocardiography HUONG S HOY Start: 11-04-2024 Comprehensive metabo lic panel Shankar PABLO Work Phone: Start: 11-03-2024 Comprehensive metabo lic panel Shankar PABLO Work Phone: Start: 11-02-2024 Comprehensive metabo lic panel Shankar PABLO Work Phone: Start: 11-01-2024 Comprehensive metabo lic panel Shankar PABLO Work Phone: Start: 10-31-2024 Comprehensive metabo lic panel Shankar PABLO Work Phone: Start: 10-30-2024 Us abdominal real ti me w/image limited Dirk Sanders DO Work Phone: Start: 10-30-2024 Comprehensive metabo [...] 10-23-2024 Radiologic exam ches t single view [place] Saturday AGRICULTURAL SCIENCES PROFESSOR-C Work Phone: Start: 10-23-2024 Comprehensive metabo lic panel Dirkstevan Sanders DO Work Phone: Start: 10-22-2024 Comprehensive metabo lic panel Shankar PABLO Work Phone: Start: 10-21-2024 Us abdominal real ti me w/image limited Shankar PABLO Work Phone: Start: 10-21-2024 Comprehensive metabo lic panel Shankar PABLO Work Phone: Start: 10-20-2024 Comprehensive metabo lic panel Shankar PABLO Work Phone: Start: 10-19-2024 Comprehensive metabo lic panel Shankar Bedolla PA Work Phone: Start: 10-18-2024 Comprehensive metabo lic panel Dirk Sanders DO Work Phone: Start: 09-21-2024 O2 SATURATION (POC) Deysi Wheat DO Work Phone: Start: 09-21-2024 Antibody screen SAMM HOY Comment on above: Order Comment: Speci men Type: BLOOD SPECIMENOrdering Facility: [facility] Address: [address] [place] [address] Performed By: #### T SCR ####CC MAIN BLOOD BANKCLIA [id number] [address] Start: 09-18-2024 Interrog eval f2f 1/dual/ball winder leads impltbl dfb Jazmin PABLO Work Phone: Start: 09-18-2024 Echocardiography DOUGLA S HOY Start: 09-17-2024 Antibody screen SAMM HOY Comment on above: Order Comment: Speci men Type: BLOOD SPECIMENOrdering Facility: [facility] Address: [address] [place] [address] Performed By: #### T SCR ####CC MAIN BLOOD BANKCLIA [id number] [address] [place] Start: 08-19-2024 Prgrmg dev eval impl antable subq lead dfb system [facility] [place] Provider Start: 07-23-2024 Echocardiography DOUGLA S HOY Start: 07-22-2024 Antibody screen SAMM HOY Comment on above: Order Comment: Speci men Type: BLOOD SPECIMENOrdering Facility: [facility] Address: [address] [place] [address] Performed By: #### T SCR ####CC MAIN BLOOD BANKCLIA [id number] [address] [place] Start: 05-14-2024 Colonoscopy SAMM HO Y Start: 05-14-2024 Antibody screen SAMM HOY Comment on above: Order Comment: Speci men Type: BLOOD SPECIMENOrdering Facility: [facility] Address: [address] [place] [address] Performed By: #### T SCR ####CC MAIN BLOOD BANKCLIA [id number] [address] Start: 05-11-2024 Echocardiography DOUGLA S HOY Start: 05-10-2024 Antibody screen SAMM HOY Comment on above: Order Comment: Speci men Type: BLOOD SPECIMENOrdering Facility: [facility] Address: [address] [place] [address] Performed By: #### T SCR ####CC MAIN BLOOD BANKCLIA [id number] [address] Start: 05-06-2024 Echocardiography DOUGLA S HOY Start: 03-30-2024 Echocardiography DOUGLA S HOY Start: 03-03-2024 Antibody screen SAMM HOY Comment on above: Order Comment: Speci men Type: BLOOD SPECIMENOrdering Facility: [facility] Address: [address] [place] [address] Performed By: #### T SCR ####CC MAIN BLOOD BANKCLIA [id number] [address] Start: 03-02-2024 Visual field xm uni/ bi w/interp extended exam Susi Whitehead OD Work Phone: Start: 12-25-2023 Follow-up visit Follow-up BEKA HARMON Start: 12-22-2023 ICD REMOTE CHECK Rubén Bucio MD Work Phone: Start: 12-02-2023 Follow-up visit HARIGUNJAN MATSONSOOD Start: 11-25-2023 ICD REMOTE CHECK Rubén Bucio MD Work Phone: Start: 11-18-2023 Follow-up visit HARI M AQSOOD Start: 02-21-2023 ICD REMOTE CHECK Rubén Bucio MD Work Phone: Start: 11-06-2022 ICD REMOTE CHECK Rubén Bucio MD Work Phone: Start: 10-25-2022 Myocrd img pet prfuj ball winder std rst&strs cncrnt ct Zahra Pierre MD Work Phone: Start: 10-25-2022 Myocrd img pet prfuj w/metab 2rtracer cncrnt ct Zahra Pierre MD Work Phone: Start: 10-25-2022 End: 10-25-2022 Gluc bld gluc mntr dev cleared fda spec home use [facility] Start: 09-12-2022 End: 09-12-2022 PSA screening [facility] Provider Comment on above: Performed By: #### B MP, BNP #### [facility] [address] [place] [address] Dr. Silva Burnett Start: 08-07-2022 ICD REMOTE [...] bypass grafting Hx of CABG Carmelina Ramos APRN.RUBBER COMPOUNDER FORMULATOR Work Phone: History of coronary artery bypass [...] bypass graft) Nj Wei MD Work Phone: History of coronary artery bypass grafting S/P CABG (coronary artery bypass graft) Nj Wei MD Work Phone: Plan of Treatment Date Care Activity Detail Author Start: 06-13-2030 DTaP,Tdap and Td Vaccines (2 - Tdap) DTaP,Tdap and Td Vaccines (2 - Tdap) [facility] Start: 06-13-2030 DTaP/Tdap/Td vaccine (2 - Tdap) DTaP/Tdap/Td vaccine (2 - Tdap) [facility] Start: 06-13-2030 Urine microalbumin profile [facility] Start: 10-25-2025 DIABETES SCREEN DIABETES SCREEN [facility] Start: 06-30-2025 End: 06-30-2025 Patient encounter procedure 06/30/2025 10:00 AM EDT Office Visit Cardiology [address] [place] [address] Carmela Fernandes MD [address] [place] [address] DX: Chronic diastolic heart failure Cardiology Comment on above: DX: Chronic diastolic heart failure Start: 06-06-2025 DIABETES SCREEN DIABETES SCREEN [facility] Start: 05-17-2025 Influenza vaccination Influenza Vaccine (Season Ended) [facility] Start: 04-19-2025 DIABETES SCREEN DIABETES SCREEN [facility] Start: 04-03-2025 Hemoglobin A1c measurement HbA1C [facility] Start: 03-18-2025 Hemoglobin A1c measurement HbA1C [facility] Start: 03-11-2025 End: 03-11-2025 Patient encounter procedure 03/11/2025 1:30 PM EDT Procedure Visit [facility] [address] [place] [address] Ayana Evans, MARIA A [address] [place] [address] [facility] Start: 03-03-2025 End: 03-03-2025 ambulatory 03/03/2025 2:30 PM EDT [facility] [address] [place] [address] Tuyet Rodrigues APRN.RUBBER COMPOUNDER FORMULATOR [address] [place] [address] virtual f/u to review carotid ultrasound (luís on leave) [facility] Comment on above: virtual f/u to review carotid ultrasound (luís on leave) Start: 03-03-2025 End: 03-03-2025 Admission to same day surgery center 03/03/2025 12:00 PM EDT - 03/03/2025 1:00 PM EDT Surgery HOSP EP Lab [address] [place] [address] Nj Wei MD [address] [place] [address] CARDIOVERSION EXTERNAL ELECTIVE HOSP EP Lab Comment on above: CARDIOVERSION EXTERNAL ELECTIVE Start: 03-03-2025 End: 03-03-2025 Cardioversion elective arrhythmia external CARDIOVERSION EXTERNAL ELECTIVE Persistent atrial fibrillation (HCC) 03/03/2025 12:00 PM EDT EP LAB Start: 03-03-2025 Subsequent hospital visit by physician 03/03/2025 12:00 PM EDT Hospital Encounter HOSP EP Lab [address] [place] [address] Nj Wei MD [address] [place] [address] Persistent atrial fibrillation (HCC) [I48.19] HOSP EP Lab Comment on above: Persistent atrial fibrillation (HCC) [I4 8.19] Start: 03-03-2025 End: 03-03-2025 Patient encounter procedure Admitting Comment on above: interview dcc Start: 03-02-2025 Glaucoma screening Dilated Retinal Exam [facility] Start: 03-01-2025 End: 03-01-2025 Patient encounter procedure Cardiology Comment on above: Dx: PVC VT REGISTRY Start: 03-01-2025 End: 03-01-2025 ambulatory Cardiology Comment on above: Dx: PVC Start: 03-01-2025 End: 03-01-2025 Patient encounter procedure Cardiology Comment on above: Dx: PVC Carotid stenosis, sy mptomatic w/o infarct, left [I65.22] Start: 02-25-2025 Adult BMI Screening Adult BMI Screening [employer] Start: 02-15-2025 Hepatitis B surface antibody level LDL Cholesterol [facility] Start: 01-15-2025 DIABETES SCREEN DIABETES SCREEN [facility] Start: 12-23-2024 End: 12-23-2024 ambulatory Cardiology [...] hea rt failure Dx: Cardiomyopathy, ischemic Start: 12-17-2024 End: 12-17-2024 ambulatory 12/17/2024 2:30 PM EDT [facility] Cardiology [address] [place] [id number] Carmela Fernandes MD [address] [place] [address] chf Cardiology Comment on above: chf Start: 12-08-2024 End: 12-08-2024 Patient encounter procedure Cardiology Comment on above: Dx: Cardiomyopathy, ischemic, S/P mitral valve clip implantation, Stage 3b chronic kidney disease ( Start: 12-02-2024 End: 12-02-2024 Patient encounter procedure 12/02/2024 3:00 PM EDT Office Visit Kidney Medicine [address] [place] [address] Rubi Douglas I, MD [address] [place] [address] CKD Kidney Medicine Comment on above: CKD Start: 11-09-2024 DIABETES SCREEN DIABETES SCREEN [facility] Start: 11-09-2024 Hemoglobin A1c measurement HbA1C [facility] Start: 10-09-2024 End: 10-09-2024 Patient encounter procedure 10/09/2024 1:00 PM EST Office Visit Cardiology [address] [place] [id number] Carmela Fernandes MD [address] [place] [address] [facility] Cardiology Comment on above: [facility] Start: 10-07-2024 End: 10-07-2024 ambulatory 10/07/2024 2:00 PM EST [facility] [address] [place] [address] Tuyet Rodrigues APRN.RUBBER COMPOUNDER FORMULATOR [address] [place] [address] virtual f/u to review carotid ultrasound (luís on leave) C[facility]brovascular Center Comment on above: virtual f/u to review carotid ultrasound (luís on leave) Start: 10-07-2024 End: 01-06-2025 TESTOSTERONE, FREE AND TOTAL TESTOSTERONE, FREE AND TOTAL Lab Routine History of prostate cancer Expected: 10/07/2024, Expires: 01/06/2025 [facility] Comment on above: Expected: 10/07/2024, Expires: Start: 10-05-2024 End: 10-05-2024 ambulatory 10/05/2024 12:00 PM EST Results Only Cardiology [address] [place] [address] Dx: Cardiomyopathy, ischemic Cardiology Comment on above: Dx: Cardiomyopathy, ischemic Start: 10-05-2024 End: 10-05-2024 Patient encounter procedure Vascular Medicine Comment on above: DX: Carotid stenosis, symptomatic w/o in farct, left Dx: Cardiomyopathy, ischemic US Carotid Bilateral Start: 10-01-2024 End: 12-31-2024 Prostate specific Ag [Mass/volume] in Serum or Plasma PROSTATE-SPECIFIC ANTIGEN DIAGNOSTIC Lab Routine History of prostate cancer Expected: 10/01/2024, Expires: 12/31/2024 [facility] Work Phone: Comment on above: Expected: 10/01/2024, Expires: Start: 09-29-2024 End: 09-29-2024 ambulatory 09/29/2024 4:00 PM EST Results Only Cardiology [address] [place] [address] PVC Cardiology Comment on above: PVC Start: 09-29-2024 End: 09-29-2024 Patient encounter procedure Radiation Oncology Comment on above: 6 month rv PVC Start: 09-28-2024 Hepatitis B surface antibody level LDL Cholesterol [facility] Start: 09-28-2024 End: 09-28-2024 ambulatory 09/28/2024 1:45 PM EST Results Only Cardiology [address] [place] [address] Dx: Cardiomyopathy, ischemic Cardiology Comment on above: Dx: Cardiomyopathy, ischemic Start: 09-28-2024 End: 09-28-2024 Patient encounter procedure Cardiology Comment on above: Dx: Cardiomyopathy, ischemic Start: 09-22-2024 End: 09-22-2024 Patient encounter procedure 09/22/2024 1:15 PM EST Office Visit [facility] [address] [place] [address] [place] [address] lab [facility] Comment on above: lab Start: 09-21-2024 End: 09-21-2024 Cath plmt r hrt & arts w/njx & angio img s&i RIGHT HEART CATH CORONARY ARTERY ANGIO INTRAPROCEDURAL INJECT IMAGE SUPERVISION/INTERPRETAT ION CAD in [place] artery 09/21/2024 9:10 AM EST CARDIOVASCULAR OR NURSE Start: 09-16-2024 Advance Directive Discussion Advance Directive Discussion [facility] Start: 09-11-2024 End: 12-11-2024 Basic metabolic 2000 panel - Serum or Plasma BASIC METABOLIC PANEL Lab Routine Chronic systolic heart failure (HCC) Expected: 09/11/2024, Expires: 12/11/2024 [facility] Work Phone: Comment on above: Expected: 09/11/2024, Expires: Start: 09-11-2024 End: 12-11-2024 Natriuretic peptide.B prohormone N-Terminal [Mass/volume] in Serum or Plasma NT PRO BNP Lab Routine Chronic systolic heart failure (HCC) Expected: 09/11/2024, Expires: 12/11/2024 [facility] Comment on above: Expected: 09/11/2024, Expires: Start: 09-07-2024 End: 09-07-2024 Patient encounter procedure 09/07/2024 2:45 PM EST Office Visit Cardiology [address] [id number] Carmela Fernandes MD [address] [place] [address] Main, Nurse Card Chf [address] [place] [address] DX: Acute on chronic systolic congestive heart failure Cardiology Comment on above: DX: Acute on chronic systolic congestive heart failure Start: 09-07-2024 End: 09-07-2024 ambulatory 09/07/2024 2:00 PM EST Results Only Main [place] [address] [address] Station [address] [place], [place] [id number] DX: Acute on chronic systolic congestive heart failure [facility] Draw Station Comment on above: DX: Acute on chronic systolic congestive heart failure Start: 09-07-2024 End: 12-07-2024 Basic metabolic 2000 panel - Serum or Plasma BASIC METABOLIC PANEL Lab Routine Chronic systolic heart failure (HCC) Non-rheumatic mitral regurgitation Expected: 09/07/2024, Expires: 12/07/2024 [facility] Work Phone: Comment on above: Expected: 09/07/2024, Expires: Start: 09-07-2024 End: 12-07-2024 CBC panel - Blood by Automated count COMPLETE BLOOD COUNT Lab Routine Chronic systolic heart failure (HCC) Non-rheumatic mitral regurgitation Expected: 09/07/2024, Expires: 12/07/2024 [facility] Comment on above: Expected: 09/07/2024, Expires: Start: 09-07-2024 End: 12-07-2024 Natriuretic peptide.B prohormone N-Terminal [Mass/volume] in Serum or Plasma NT PRO BNP Lab Routine Chronic systolic heart failure (HCC) Non-rheumatic mitral regurgitation Expected: 09/07/2024 (Approximate), Expires: 12/07/2024 [facility] Comment on above: Expected: 09/07/2024 (Approximate), Expi res: 12/07/2024 Start: 08-31-2024 End: 08-31-2024 ambulatory 08/31/2024 2:00 PM EST Results Only [facility] [address] [place] [address] [place] [address] DX: Acute on chronic systolic congestive heart failure [facility] Comment on above: DX: Acute on chronic systolic congestive heart failure Start: 08-27-2024 End: 11-26-2024 Basic metabolic 2000 panel - Serum or Plasma BASIC METABOLIC PANEL Lab Routine Heart failure, acute systolic (HCC) Acute on chronic systolic congestive heart failure (HCC) Carotid stenosis, 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, left Expected: 08/27/2024, Expires: 11/26/2024 [facility] Comment on above: Expected: 08/27/2024, Expires: Start: 08-27-2024 End: 11-26-2024 CBC W Auto Differential panel - Blood COMPLETE BLOOD COUNT AND DIFFERENTIAL Lab Routine Heart failure, acute systolic (HCC) Acute on chronic systolic congestive heart failure (HCC) Carotid stenosis, 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, left Expected: 08/27/2024, Expires: 11/26/2024 [facility] Comment on above: Expected: 08/27/2024, Expires: Start: 08-27-2024 End: 11-26-2024 Natriuretic peptide.B prohormone N-Terminal [Mass/volume] in Serum or Plasma NT PRO BNP Lab Routine Heart failure, acute systolic (HCC) Acute on chronic systolic congestive heart failure (HCC) Carotid stenosis, 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, left Expected: 08/27/2024, Expires: 11/26/2024 [facility] Work Phone: Comment on above: Expected: 08/27/2024, Expires: Start: 08-19-2024 End: 08-19-2024 Patient encounter procedure Cardiology Comment on above: Dx: PVC DX: Acute on chronic systolic congestive heart failure Start: 08-19-2024 End: 08-19-2024 ambulatory 08/19/2024 9:00 AM EST Results Only Cardiology [address] [place] [id number] Dx: PVC Cardiology Comment on above: Dx: PVC Start: 08-17-2024 Hemoglobin A1c measurement HbA1C [facility] Start: 07-31-2024 End: 07-31-2024 Patient encounter procedure 07/31/2024 3:40 PM EST Office Visit Kidney Medicine [address] [place] [address] [place] [address] [place] [address] CKD Kidney Medicine Comment on above: CKD Start: 07-16-2024 End: 07-16-2024 Clinical Support 07/16/2024 1:45 PM EDT Clinical Support [facility] [address] [place] [address] [facility] Start: 07-15-2024 End: 07-15-2024 Clinical Support 07/15/2024 1:45 PM EDT Clinical Support [facility] [address] [place] [place] [address] [facility] Start: 07-13-2024 End: 07-13-2024 Clinical Support 07/13/2024 1:45 PM EDT Clinical Support [facility] [address] [place] [address] [facility] Start: 07-09-2024 End: 07-09-2024 Clinical Support 07/09/2024 1:45 PM EDT Clinical Support [facility] [address] [place] [address] [facility] Start: 07-08-2024 End: 07-08-2024 Clinical Support 07/08/2024 1:45 PM EDT Clinical Support [facility] [address] [place] [address] [facility] Start: 07-06-2024 End: 07-06-2024 Clinical Support 07/06/2024 1:45 PM EDT Clinical Support [facility] [address] [place] [address] [facility] Start: 07-02-2024 End: 07-02-2024 Clinical Support 07/02/2024 1:45 PM EDT Clinical Support [facility] [address] [place] [address] [facility] [facility] Start: 07-01-2024 End: 07-01-2024 Clinical Support 07/01/2024 1:45 PM EDT Clinical Support [facility] [address] [place] [address] [facility] Start: 06-29-2024 End: 06-29-2024 Clinical Support 06/29/2024 1:45 PM EDT Clinical Support [facility] [address] [place] [address] [facility] Start: 06-25-2024 End: 06-25-2024 Clinical Support 06/25/2024 1:45 PM EDT Clinical Support [facility] [address] [place] [address] [facility] Start: 06-01-2024 End: 06-01-2024 ambulatory 06/01/2024 3:00 PM EDT [facility] Cardiology [address] [place] [address] Paulina Fernandes MD [address] [place] [address] DX: Dx: Cardiomyopathy, ischemic Cardiology Comment on above: DX: Dx: Cardiomyopathy, ischemic Start: 05-29-2024 End: 05-29-2024 Patient encounter procedure 05/29/2024 1:00 PM EDT Office Visit Kidney Medicine [address] [place] [address] [place] [address] [place] [address] CKD Kidney Medicine Comment on above: CKD Start: 05-17-2024 Covid-19 Vaccine ( season) Covid-19 Vaccine ( season) [facility] Start: 05-17-2024 Covid-19 Vaccine ( season) Covid-19 Vaccine ( season) [facility] Start: 05-17-2024 Influenza vaccination [facility] Start: 05-14-2024 End: 05-14-2024 Clinical Support 05/14/2024 11:00 AM EDT Clinical Support [facility] [address] [place] [address] [facility] Start: 05-13-2024 End: 05-13-2024 Clinical Support 05/13/2024 11:00 AM EDT Clinical Support [facility] [address] [place] [address] [facility] Start: 05-11-2024 End: 05-11-2024 Clinical Support 05/11/2024 11:00 AM EDT Clinical Support [facility] [address] [place] [address] [facility] Start: 05-07-2024 End: 05-07-2024 Clinical Support 05/07/2024 11:00 AM EDT Clinical Support [facility] [address] [place] [address] [facility] Start: 05-06-2024 End: 05-06-2024 Patient encounter procedure Cardiology Comment on above: DX: Severe mitral regurgitation [I34.0] Start: 05-04-2024 End: 05-04-2024 Clinical Support 05/04/2024 11:00 AM EDT Clinical Support [facility] [address] [place] [address] [facility] Start: 04-30-2024 End: 04-30-2024 Clinical Support 04/30/2024 11:00 AM EDT Clinical Support [facility] [address] [place] [address] [facility] Start: 04-29-2024 End: 04-29-2024 Clinical Support 04/29/2024 11:00 AM EDT Clinical Support [facility] [address] [place] [address] [facility] Start: 04-27-2024 End: 04-27-2024 Clinical Support 04/27/2024 11:00 AM EDT Clinical Support [facility] [address] [place] [address] [facility] Start: 04-23-2024 End: 04-23-2024 Clinical Support 04/23/2024 11:00 AM EDT Clinical Support [facility] [address] [place] [address] [facility] Start: 04-22-2024 End: 04-22-2024 Clinical Support 04/22/2024 11:00 AM EDT Clinical Support [facility] [address] [place] [address] [facility] Start: 04-20-2024 End: 04-20-2024 Clinical Support 04/20/2024 11:00 AM EDT Clinical Support [facility] [address] [place] [address] [facility] Start: 04-16-2024 Influenza vaccination Flu vaccine (#1) [facility] Start: 04-16-2024 End: 04-16-2024 Clinical Support 04/16/2024 11:00 AM EDT Clinical Support [facility] [address] [place] [address] [facility] Start: 04-15-2024 End: 04-15-2024 Clinical Support 04/15/2024 11:00 AM EDT Clinical Support [facility] [address] [place] [address] [facility] Start: 04-13-2024 End: 04-13-2024 Clinical Support 04/13/2024 11:00 AM EDT Clinical Support [facility] [address] [place] [address] [facility] Start: 04-09-2024 End: 04-09-2024 Clinical Support 04/09/2024 11:00 AM EDT Clinical Support [facility] [address] [place] [address] [facility] Start: 04-08-2024 End: 04-08-2024 Clinical Support 04/08/2024 11:00 AM EDT Clinical Support [facility] [address] [place] [address] [facility] Start: 04-07-2024 End: 07-07-2024 Basic metabolic 2000 panel - Serum or Plasma BASIC METABOLIC PANEL Lab Routine Chronic systolic heart failure (HCC) Expected: 04/07/2024 (Approximate), Expires: 07/07/2024 [facility] Work Phone: Comment on above: Expected: 04/07/2024 (Approximate), Expi res: 07/07/2024 Start: 04-06-2024 End: 04-06-2024 ambulatory [facility] Start: 04-02-2024 End: 04-02-2024 Clinical Support 04/02/2024 11:00 AM EDT Clinical Support [facility] [address] [place] [address] [facility] Start: 03-31-2024 End: 06-30-2024 Natriuretic peptide.B prohormone N-Terminal [Mass/volume] in Serum or Plasma NT PRO BNP Lab Routine Chronic systolic heart failure (HCC) Expected: 03/31/2024, Expires: 06/30/2024 [facility] Comment on above: Expected: 03/31/2024, Expires: Start: 03-31-2024 End: 03-31-2024 ambulatory [facility] Comment on above: Dx: Dx: Cardiomyopathy, ischemic Start: 03-31-2024 End: 03-31-2024 Patient encounter procedure 03/31/2024 1:15 PM EDT Office Visit Radiation Oncology [address] [place] [address] Yung Andrade MD [address] [place] [address] [place] [address] 6 month rv Radiation Oncology Comment on above: 6 month rv Start: 03-30-2024 End: 06-29-2024 Basic metabolic 2000 panel - Serum or Plasma [facility] Work Phone: Comment on above: Expected: 03/30/2024, Expires: Start: 03-30-2024 End: 03-30-2024 Patient encounter procedure Cardiology Comment on above: HFrEF Severe mitral regurg itation Start: 03-30-2024 End: 03-30-2024 ambulatory 03/30/2024 1:30 PM EDT Results Only Cardiology [address] [place], [place] [id number] Severe mitral regurgitation Cardiology Comment on above: Severe mitral regurgitation Start: 03-26-2024 End: 03-26-2024 Clinical Support 03/26/2024 11:00 AM EDT Clinical Support [facility] [address] [place] [address] [facility] Start: 03-25-2024 End: 03-25-2024 Clinical Support 03/25/2024 11:00 AM EDT Clinical Support [facility] [address] [place] [address] [facility] Start: 03-24-2024 End: 03-24-2024 Patient encounter procedure 03/24/2024 1:00 PM EDT Office Visit [facility] [address] [place] [address] lab [facility] Comment on above: lab Start: 03-18-2024 End: 03-18-2024 [facility] 03/18/2024 2:05 PM EDT [facility] Neurology [facility] [address] [place] [address] Luís Skinner, SHAREPOINT APPLICATION ARCHITECT.RUBBER COMPOUNDER FORMULATOR [address] [place] [address] HOSPITAL F/U - 0-2 week stroke fu appointment with an RYLIE, PER HOSPITAL ORDER Neurology [facility] Comment on above: HOSPITAL F/U - 0-2 week stroke fu appoin tment with an RYLIE, PER HOSPITAL ORDER Start: 03-11-2024 End: 03-11-2024 Patient encounter procedure 03/11/2024 11:20 AM EDT Office Visit Otolaryngology [address] [place] [address] Charu Kincaid, SHAREPOINT APPLICATION ARCHITECT.RUBBER COMPOUNDER FORMULATOR [address] [place] [address] Sore throat [J02.9] Otolaryngology Comment on above: Sore throat [J02.9] Start: 02-28-2024 End: 02-28-2024 Patient encounter procedure 02/28/2024 3:30 PM EDT Office Visit Cardiology [address] [place] [address] Keesha Mcarthur, SHAREPOINT APPLICATION ARCHITECT.RUBBER COMPOUNDER FORMULATOR [address] [place] [address] Severe mitral regurgitation Cardiology Comment on above: Severe mitral regurgitation Start: 02-28-2024 End: 02-28-2024 ambulatory 02/28/2024 3:00 PM EDT Results Only Cardiology [address] [place] [address] Severe mitral regurgitation Cardiology Comment on above: Severe mitral regurgitation Start: 02-27-2024 End: 2025 ECG COMPLETE ECG COMPLETE ECG Routine Severe mitral regurgitation Status post implantation of mitral valve leaflet clip Expected: 02/27/2024, Expires: 2025 [facility] Comment on above: Expected: 02/27/2024, Expires: Start: 02-18-2024 End: 02-18-2024 Evaluation and management of inpatient 02/18/2024 12:44 PM EDT - 02/18/2024 4:36 PM EDT Surgery Admitting [address] [place] [address] Isreal Rain MD [address] [facility] [address] [place] [address] TRANSCATHETER MITRAL VALVE REPAIR PERCUTANEOUS INCLUDE TRANSSEPTAL [...] 02/18/2024 2:55 PM EDT Surgery Admitting [address] [place] [address] Isreal Rain MD [address] [facility] [address] [place] [address] TRANSCATHETER MITRAL VALVE REPAIR PERCUTANEOUS INCLUDE TRANSSEPTAL [...] 10:45 AM EDT Office Visit Cardiology [address] [id number] to be admitted prior on 02/14 and will remain in the house for the procedure. Cardiology Comment on above: to be admitted prior on 02/14 and will rem ain in the house for the procedure. Start: 02-18-2024 End: 02-18-2024 ambulatory 02/18/2024 10:30 AM EDT Procedure Cardiology [address] [phone] to be admitted prior on 02/14 and [...] insufficiency, unspecified etiology 02/18/2024 9:03 AM EDT [facility] & V[facility] Start: 02-15-2024 Evaluation and management of inpatient 02/15/2024 12:44 PM EDT Hospital Encounter [id number] [address] [id number] Isreal Rain MD [address] [facility] [address] [place], [place] [phone] to be admitted prior on 02/14 and will remain in the house for the procedure., Mitral Valve Transcatheter Algg-cy-Cvis Repair (M-AZAEL) w/ Cowart MitraClip, Procedure on: 02/18/24 at 10:30 am [id number] Comment on above: to be admitted prior on 02/14 and will rem ain in the house for the procedure., Mitral Valve Transcatheter Mdpd-oe-Myuh Repair (M-AZAEL) w/ Cowart MitraClip, Procedure on: 02/18/24 at 10:30 am Start: 02-15-2024 Evaluation and management of inpatient 02/15/2024 11:03 AM EDT Hospital Encounter [id number] [address] [place] [address] Nicole Coppola MD [address] [place], [place] [phone] Isreal Rain MD [address] [place] [address] to be admitted prior on 02/14 and will remain in the house for the procedure., Mitral Valve Transcatheter Dsob-cy-Qonw Repair (M-AZAEL) w/ Cowart MitraClip, Procedure on: 02/18/24 at 10:30 am [id number] Comment on above: to be admitted prior on 02/14 and will rem ain in the house for the procedure., Mitral Valve Transcatheter Dvnj-or-Sqzk Repair (M-AZAEL) w/ Cowart MitraClip, Procedure on: 02/18/24 at 10:30 am Start: 02-13-2024 End: 02-13-2024 Clinical Support 02/13/2024 1:30 PM EDT Clinical Support [facility] [address] [place] [address] [facility] Start: 02-12-2024 End: 02-12-2024 Clinical Support 02/12/2024 1:30 PM EDT Clinical Support [facility] [address] [place] [address] [facility] Start: 02-12-2024 End: 02-12-2024 Patient encounter procedure 02/12/2024 10:05 AM EDT Office Visit Otolaryngology [address] [place] [address] Charu Kincaid, ANAND.RUBBER COMPOUNDER FORMULATOR [address] [place] [address] CONSULT TO ENT Otolaryngology Comment on above: CONSULT TO ENT Start: 02-11-2024 End: 02-11-2024 ambulatory 02/11/2024 4:00 PM EDT [facility] Cardiology [address] [place] [address] Paulina Fernandes MD [address] [place] [address] 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) Cardiology Comment on above: 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) Start: 02-06-2024 End: 02-06-2024 Clinical Support 02/06/2024 1:30 PM EDT Clinical Support [facility] [address] [place] [address] [facility] Start: 02-05-2024 End: 02-05-2024 Patient encounter procedure 02/05/2024 3:10 PM EDT Office Visit Vascular Medicine [address] [phone] [employer] MITCH TO DO, Vascular Medicine Comment on above: EMPOWER MITCH TO DO, Start: 02-05-2024 End: 02-05-2024 Nursing evaluation of patient and report 02/05/2024 2:00 PM EDT Nurse Visit Cardiology [address] [place] [address] Mn, Research Nurse Card Intervention [address] [phone] [id number] [facility] Comment on above: [id number] [facility] Start: 02-05-2024 End: 02-05-2024 [facility] [address] jazmin German Comment on above: [id number] [employer] Start: 02-03-2024 End: 02-03-2024 Clinical Support 02/03/2024 1:30 PM EDT Clinical Support [facility] [address] [place] [address] [facility] Start: 01-30-2024 End: 01-30-2024 Clinical Support 01/30/2024 1:30 PM EDT Clinical Support [facility] [address] [place] [address] [facility] Start: 01-29-2024 End: 01-29-2024 Clinical Support 01/29/2024 1:30 PM EDT Clinical Support [facility] [address] [place] [address] [facility] Start: 01-27-2024 End: 01-27-2024 Clinical Support 01/27/2024 1:30 PM EDT Clinical Support [facility] [address] [place] [address] [facility] Start: 01-23-2024 End: 01-23-2024 Clinical Support 01/23/2024 1:30 PM EDT Clinical Support [facility] [address] [place] [address] [facility] Start: 01-22-2024 End: 01-22-2024 Clinical Support 01/22/2024 1:30 PM EDT Clinical Support [facility] [address] [place] [address] [facility] Start: 01-20-2024 End: 01-20-2024 Clinical Support 01/20/2024 1:30 PM EDT Clinical Support [facility] [address] [place] [address] [facility] Start: 01-16-2024 End: 01-16-2024 Clinical Support 01/16/2024 1:30 PM EDT Clinical Support [facility] [address] [place] [address] [facility] Start: 01-15-2024 End: 01-15-2024 Clinical Support 01/15/2024 1:30 PM EDT Clinical Support [facility] [address] [place] [address] [facility] Start: 01-13-2024 End: 01-13-2024 Clinical Support 01/13/2024 1:30 PM EDT Clinical Support [facility] [address] [place] [address] [facility] Start: 01-09-2024 End: 01-09-2024 Clinical Support 01/09/2024 1:30 PM EDT Clinical Support [facility] [address] [place] [address] [facility] Start: 01-08-2024 End: 01-08-2024 Clinical Support 01/08/2024 1:30 PM EDT Clinical Support [facility] [address] [place] [address] [facility] Start: 01-02-2024 End: 01-02-2024 Clinical Support 01/02/2024 1:30 PM EDT Clinical Support [facility] [address] [place] [address] [facility] Start: 01-01-2024 End: 01-01-2024 Clinical Support 01/01/2024 1:30 PM EDT Clinical Support [facility] [address] [place] [address] [facility] Start: 12-30-2023 End: 12-30-2023 Clinical Support 12/30/2023 1:30 PM EDT Clinical Support [facility] [address] [place] [address] [facility] Start: 12-26-2023 End: 12-26-2023 Clinical Support 12/26/2023 1:30 PM EDT Clinical Support [facility] [address] [place] [address] [facility] Start: 12-25-2023 End: 12-25-2023 Clinical Support 12/25/2023 1:30 PM EDT Clinical Support [facility] [address] [place] [address] [facility] Start: 10-29-2023 End: 01-28-2024 Comprehensive metabolic 2000 panel - Serum or Plasma COMP METABOLIC PANEL Lab Routine Chronic 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) Expected: 10/29/2023, Expires: 01/28/2024 [facility] Work Phone: Comment on above: Expected: 10/29/2023, Expires: Start: 09-16-2023 Advance Directive Discussion Advance Directive Discussion [facility] Start: 09-16-2023 Behavioral Health Screening Behavioral Health Screening [facility] Start: 09-16-2023 Depression Assessment Depression Assessment [facility] Start: 05-17-2023 Covid-19 Vaccine () Covid-19 Vaccine () [facility] Start: 05-17-2023 Influenza vaccination [facility] Start: 04-01-2023 End: 06-01-2023 Prostate specific Ag [Mass/volume] in Serum or Plasma PSA/PROSTSPECAG DIAG Lab Routine Malignant neoplasm of prostate (HCC) Expected: 04/01/2023 (Approximate), Expires: 06/01/2023 [facility] Work Phone: Comment on above: Expected: 04/01/2023 (Approximate), Expi res: 06/01/2023 Start: 01-15-2023 Hepatitis B surface antibody level LDL CHOLESTEROL [facility] Start: 10-27-2022 End: 12-27-2022 Prostate specific Ag [Mass/volume] in Serum or Plasma PSA/PROSTSPECAG DIAG Lab Routine Malignant neoplasm of prostate (HCC) Expected: 10/27/2022, Expires: 12/27/2022 [facility] Work Phone: Comment on above: Expected: 10/27/2022, Expires: 3 Start: 09-16-2022 ADVANCE DIRECTIVE DISCUSSION ADVANCE DIRECTIVE DISCUSSION [facility] Start: 09-16-2022 DEPRESSION ASSESSMENT DEPRESSION ASSESSMENT [facility] Start: 08-18-2022 Adult BMI Screening Adult BMI Screening [employer] [facility] Start: 08-17-2022 Depression Screening Depression Screening [facility] Start: 07-18-2022 Hemoglobin A1c measurement HbA1C [facility] Start: 07-18-2022 Hemoglobin A1c/Hemoglobin.total in Blood HBA1C [facility] Start: 06-06-2022 End: 08-06-2022 Comprehensive metabolic 2000 panel - Serum or Plasma [facility] Work Phone: Comment on above: Expected: 06/06/2022, Expires: 2 Start: 06-06-2022 End: 08-06-2022 Natriuretic peptide.B prohormone N-Terminal [Mass/volume] in Serum or Plasma [facility] Work Phone: Comment on above: Expected: 06/06/2022, Expires: 2 Start: 05-17-2022 Influenza vaccination [facility] Start: 01-15-2022 End: 03-17-2022 Hemoglobin A1c/Hemoglobin.total in Blood [facility] Work Phone: Comment on above: Expected: 01/15/2022, Expires: 2 Start: 01-15-2022 End: 03-17-2022 Insulin [Units/volume] in Serum or Plasma [facility] Work Phone: Comment on above: Expected: 01/15/2022, Expires: 2 Start: 01-15-2022 End: 03-17-2022 IRON + TIBC [facility] Work Phone: Comment on above: Expected: 01/15/2022, Expires: 2 Start: 01-15-2022 End: 03-17-2022 LIPID PANEL BASIC [facility] Work Phone: Comment on above: Expected: 01/15/2022, Expires: 2 Start: 01-15-2022 End: 03-17-2022 T3 UPTAKE [facility] Work Phone: Comment on above: Expected: 01/15/2022, Expires: 2 Start: 01-15-2022 End: 03-17-2022 T4 FREE/FREE THYROX [facility] Work Phone: Comment on above: Expected: 01/15/2022, Expires: 2 Start: 01-15-2022 End: 03-17-2022 T4/FTI/T4U [facility] Work Phone: Comment on above: Expected: 01/15/2022, Expires: 2 Start: 01-15-2022 End: 03-17-2022 Thyrotropin [Units/volume] in Serum or Plasma [facility] Work Phone: Comment on above: Expected: 01/15/2022, Expires: 2 Start: 01-07-2022 End: 03-09-2022 Prostate specific Ag [Mass/volume] in Serum or Plasma PSA/PROSTSPECAG DIAG Lab Routine Malignant neoplasm of prostate (HCC) Expected: 01/07/2022, Expires: 03/09/2022 [facility] Work Phone: Comment on above: Expected: 01/07/2022, Expires: 2 Start: 09-16-2021 ADVANCE DIRECTIVE DISCUSSION ADVANCE DIRECTIVE DISCUSSION [facility] Start: 09-16-2021 DEPRESSION ASSESSMENT DEPRESSION ASSESSMENT [facility] Start: 06-19-2020 Hepatitis B surface antibody level LDL CHOLESTEROL [facility] Start: 2017 Respiratory Syncytial Virus (RSV) or age 60 yrs+ (1 - 1-dose 75+ series) Respiratory Syncytial Virus (RSV) or age 60 yrs+ (1 - 1-dose 75+ series) [facility] Start: 2017 RSV Vaccine (1 - 1-dose 75+ series) RSV Vaccine (1 - 1-dose 75+ series) [facility] Start: 02-14-2011 Medicare Annual Wellness Visit Medicare Annual Wellness Visit [facility] Start: 2007 Fall Risk Screening Fall Risk Screening [facility] Start: 2007 PNEUMOVAX AGE 65 AND OVER WITH 5YR LOOKBACK (#1) PNEUMOVAX AGE 65 AND OVER WITH 5YR LOOKBACK (#1) [facility] Start: 2002 RSV Vaccine (1 - 1-dose 60+ series) RSV Vaccine (1 - 1-dose 60+ series) [facility] Start: 02-20-1992 Pneumococcal 50+ years Vaccine (1 of 1 - PCV) Pneumococcal 50+ years Vaccine (1 of 1 - PCV) [facility] Start: 02-20-1992 Shingles vaccine (1 of 2) Shingles vaccine (1 of 2) [facility] Start: 02-20-1992 SHINGRIX VACCINE (1 of 2) SHINGRIX VACCINE (1 of 2) [facility] Start: 1961 Administration of varicella zoster vaccine Zoster (Shingles) Vaccine (1 of 2) [facility] [employer] Start: 1961 Pneumococcal Vaccine: 50+ (1 of 2 - PCV) Pneumococcal Vaccine: 50+ (1 of 2 - PCV) [facility] Start: 1961 SHINGRIX VACCINE (1 of 2) SHINGRIX VACCINE (1 of 2) [facility] Start: 02-20-1960 ANNUAL PCP TEAM CHRONIC DISEASE VISIT ANNUAL PCP TEAM CHRONIC DISEASE VISIT [facility] Start: 02-20-1960 Anxiety Screening Anxiety Screening [facility] Start: 02-20-1960 Depression Screening Depression Screening [facility] Start: 1954 Adult depression screening assessment DEPRESSION SCREENING [facility] Start: 1954 Depression Screen Depression Screen [facility] Start: 1954 Tobacco Screening Tobacco Screening [facility] [employer] [facility] Start: 02-20-1952 3 comp foot exam completed DIABETIC FOOT EXAM [facility] Start: 02-20-1952 Diabetic foot examination Diabetic Foot Exam [facility] Start: 02-20-1952 Glaucoma screening Dilated Retinal Exam [facility] [facility] Start: 02-20[facility]1952 Hepatitis B screening URINE ALBUMIN:CREATININE RATIO [facility] Start: 02-20-1952 Hepatitis C antibody, confirmatory test DILATED RETINAL EXAM [facility] Start: 02-20-1948 Pneumococcal Vaccine: 65+ (1 - PCV) Pneumococcal Vaccine: 65+ (1 - PCV) [facility] Start: 02-20-1948 Pneumococcal Vaccine: 65+ (1 of 2 - PCV) Pneumococcal Vaccine: 65+ (1 of 2 - PCV) [facility] Start: 02-20-1948 PNEUMOCOCCAL: 65+ (1 - PCV) PNEUMOCOCCAL: 65+ (1 - PCV) [facility] Start: 1947 COVID-19 VACCINE (#1) COVID-19 VACCINE (#1) [facility] Start: 1947 COVID-19 VACCINE (1) COVID-19 VACCINE (1) [facility] Start: 1942 COVID-19 VACCINE (#1) COVID-19 VACCINE (#1) [facility] Start: 1940 Medicare Annual Wellness Visit Medicare Annual Wellness Visit [facility] 7 REMOVAL OF RESIDUA L TOOTH ROOTS (CUTTING PROCEDURE) 7 REMOVAL OF RESIDUAL TOOTH ROOTS (CUTTING PROCEDURE) Dental Routine 1 Occurrences starting 02/17/2024 [facility] Work Phone: Comment on above: 1 Occurrences starting 02/17/2024 CARDIAC IMPLANTABLE DEVICE CHECK CARDIAC IMPLANTABLE DEVICE CHECK PACEART Routine Pacemaker reprogramming/check 08/19/2024 10:11 AM EST [facility] CARDIOPULMONARY REHABILITATION CARDIOPULMONARY REHABILITATION Cardiac Services [...] (HCC) 1 Occurrences starting 06/06/2022 until 06/06/2023 [facility] Work Phone: Comment on above: 1 Occurrences starting 06/06/2022 until 06/06/2023 End: 10-30-2024 ECG COMPLETE ECG COMPLETE ECG Routine Chronic 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) 1 Occurrences starting 10/30/2023 until 10/30/2024 [facility] Work Phone: Comment on above: 1 Occurrences starting 10/30/2023 until 10/30/2024 End: 11-25-2024 ECG COMPLETE ECG COMPLETE ECG Routine Atherosclerosis of ekuk coronary artery, unspecified whether angina present, unspecified whether ekuk or transplanted heart 1 Occurrences starting 11/26/2023 until 11/25/2024 [facility] Work Phone: Comment on above: 1 Occurrences starting 11/26/2023 until 11/25/2024 End: 12-22-2024 ECG COMPLETE ECG COMPLETE ECG Routine HFrEF (heart failure with reduced ejection fraction) ([facility]) Mitral valve insufficiency, unspecified etiology 1 Occurrences starting 12/23/2023 until 12/22/2024 [facility] Work Phone: Comment on above: 1 Occurrences starting 12/23/2023 until 12/22/2024 ECG COMPLETE ECG COMPLETE ECG Routine Severe mitral regurgitation Cardiomyopathy, ischemic S/P CABG (coronary artery bypass graft) 1 Occurrences starting 12/26/2023 [facility] Work Phone: Comment on above: 1 Occurrences starting 12/26/2023 End: 2025 ECG COMPLETE ECG COMPLETE ECG Routine Severe mitral regurgitation Status post implantation of mitral valve leaflet clip 1 Occurrences starting 02/20/2024 until 2025 [facility] Comment on above: 1 Occurrences starting 02/20/2024 until 2025 End: 03-30-2025 ECG COMPLETE ECG COMPLETE ECG Routine Cardiomyopathy, ischemic S/P mitral valve clip implantation 1 Occurrences starting 03/30/2024 until 03/30/2025 [facility] Comment on above: 1 Occurrences starting 03/30/2024 until 03/30/2025 End: 07-27-2025 ECG COMPLETE ECG COMPLETE ECG Routine Frequent PVCs 1 Occurrences starting 07/27/2024 until 07/27/2025 [facility] Work Phone: Comment on above: 1 Occurrences starting 07/27/2024 until 07/27/2025 End: 06-06-2023 Echocardiography ECHO Cardiology Routine Chronic systolic heart failure (HCC) 1 Occurrences starting 06/06/2022 until 06/06/2023 [facility] Work Phone: Comment on above: 1 Occurrences starting 06/06/2022 until 06/06/2023 End: 10-30-2024 Echocardiography ECHO Cardiology Routine Chronic 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) 1 Occurrences starting 10/30/2023 until 10/30/2024 [facility] Work Phone: Comment on above: 1 Occurrences starting 10/30/2023 until 10/30/2024 End: 11-25-2024 Echocardiography ECHO Cardiology Routine Atherosclerosis of ekuk coronary artery, unspecified whether angina present, unspecified whether ekuk or transplanted heart 1 Occurrences starting 11/26/2023 until 11/25/2024 [facility] Work Phone: Comment on above: 1 Occurrences starting 11/26/2023 until 11/25/2024 End: 12-22-2024 Echocardiography ECHO Cardiology Routine HFrEF (heart failure with reduced ejection fraction) (HCC) Mitral valve insufficiency, unspecified etiology 1 Occurrences starting 12/23/2023 until 12/22/2024 [facility] Work Phone: Comment on above: 1 Occurrences starting 12/23/2023 until 12/22/2024 End: 12-25-2024 Echocardiography ECHO Cardiology Routine Severe mitral regurgitation Cardiomyopathy, ischemic S/P CABG (coronary artery bypass graft) 1 Occurrences starting 12/26/2023 until 12/25/2024 [facility] Work Phone: Comment on above: 1 Occurrences starting 12/26/2023 until 12/25/2024 End: 2025 Echocardiography ECHO Cardiology Routine Severe mitral regurgitation Status post implantation of mitral valve leaflet clip 1 Occurrences starting 02/20/2024 until 2025 [facility] Work Phone: Comment on above: 1 Occurrences starting 02/20/2024 until 2025 End: 03-30-2025 Echocardiography ECHO Cardiology Routine Cardiomyopathy, ischemic S/P mitral valve clip implantation 1 Occurrences starting 03/30/2024 until 03/30/2025 [facility] Comment on above: 1 Occurrences starting 03/30/2024 until 03/30/2025 End: 07-27-2025 HOLTER MONITOR 48 HOUR HOLTER MONITOR 48 HOUR ECG Routine PVC (premature ventricular contraction) 1 Occurrences starting 07/27/2024 until 07/27/2025 [facility] Work Phone: Comment on above: 1 Occurrences starting 07/27/2024 until 07/27/2025 End: 08-19-2025 HOLTER MONITOR 48 HOUR HOLTER MONITOR 48 HOUR ECG Routine Frequent PVCs 1 Occurrences starting 08/19/2024 until 08/19/2025 [facility] Work Phone: Comment on above: 1 Occurrences starting 08/19/2024 until 08/19/2025 End: 09-18-2025 LUNG DIFFUSION CAPACITY (DLCO) LUNG DIFFUSION CAPACITY (DLCO) PFT Routine Frequent PVCs 1 Occurrences starting 08/19/2024 until 09/18/2025 [facility] Comment on above: 1 Occurrences starting 08/19/2024 until 09/18/2025 End: 10-06-2023 NM PET/CT CARDIAC PERF REST/STRESS NM PET/CT CARDIAC PERF REST/STRESS Radiology Routine Chronic systolic heart failure (HCC) 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 1 Occurrences starting 09/06/2022 until 10/06/2023 [facility] Work Phone: Comment on above: 1 Occurrences starting 09/06/2022 until 10/06/2023 End: 10-06-2023 NM PET/CT CARDIAC VIABILITY NM PET/CT CARDIAC VIABILITY Radiology Routine Chronic systolic heart failure (HCC) 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 1 Occurrences starting 09/06/2022 until 10/06/2023 [facility] Work Phone: Comment on above: 1 Occurrences starting 09/06/2022 until 10/06/2023 RED BLOOD CELLS, ADULT RED BLOOD CELLS, ADULT Blood Bank Routine 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) Ordered: 02/17/2024 [facility] Work Phone: Comment on above: Ordered: 02/17/2024 End: 09-18-2025 SPIROMETRY BASELINE ONLY SPIROMETRY BASELINE ONLY PFT Routine Frequent PVCs 1 Occurrences starting 08/19/2024 until 09/18/2025 [facility] Comment on above: 1 Occurrences starting 08/19/2024 until 09/18/2025 End: 04-17-2025 US Carotid arteries - bilateral US CAROTID BILATERAL Radiology Routine Carotid stenosis, 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, left 1 Occurrences starting 03/18/2024 until 04/17/2025 [facility] Work Phone: Comment on above: 1 Occurrences starting 03/18/2024 until 04/17/2025 End: 09-17-2025 US Carotid arteries - bilateral US CAROTID BILATERAL Radiology Routine Carotid stenosis, 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, left 1 Occurrences starting 08/18/2024 until 09/17/2025 [facility] Work Phone: Comment on above: 1 Occurrences starting 08/18/2024 until 09/17/2025 End: 08-03-2023 US CAROTID ARTERIES [facility] US CAROTID ARTERIES [facility] Vascular Lab Routine Bilateral carotid artery stenosis 1 Occurrences starting 08/03/2022 until 08/03/2023 [facility] Work Phone: Comment on above: 1 Occurrences starting 08/03/2022 until 08/03/2023 [facility] c [facility] c [facility] c [facility] c [facility] c [facility] Immunizations Immunization Date Immunization Notes Care Provider Fa [facility] 06-13-2020 diphtheria, tetanus toxoids and pertussis vaccine ARACELI Andrade MD Work Phone: [facility] Payers Date Payer Category Payer Private Health Insurance [id number] 2018 [facility] [id number] 2018 Unknown MMO MMO MEDICARE SUPPLEMENT [id number] 2018-Present [phone] [address] [place] [address] Indemnity [id number] 2018 Unknown [id number]. [id number] 2007 Medicare MEDICARE MEDICAR E A AND B [id number] 2007-Present [phone] [address] [address] [place] [address] Medicare [id number] 2007 Medicare [id number] [id number]. [id number] 1959 Medicare [id number] 1959 Self-pay [id number] 1959 Unknown [id number] 1942 Unknown [id number] 2.16.840.1.452361.3.579.2. 647 1942 Unknown [id number] 2.16.840.1.538722.3.579.2. 593 1942 Unknown [id number] 2.16.840.1.004855.3.579.2. 593 1942 Unknown [id number] 2.16.840.1.943637.3.579.2. 593 1942 Unknown [id number] 2.16.840.1.718354.3.579.2. 593 1942 Unknown [id number] 2.16.840.1.986796.3.579.2. 593 1942 Unknown [id number] 2.16.840.1.916259.3.579.2. 593 1942 Unknown [id number] 2.16.840.1.928586.3.579.2. 593 1942 Unknown [id number] 2.16.840.1.333952.3.579.2. 593 1942 Unknown [id number] 2.16.840.1.931296.3.579.2. 593 1942 Unknown [id number] 2.16.840.1.216527.3.579.2. 593 1942 Unknown [id number] 2.16.840.1.511128.3.579.2. 593 1942 Unknown [id number] 2.840.1.780166.3.579.2. 593 1942 Unknown [id number] 2.840.1.992258.3.579.2. 593 1942 Unknown [id number] 2.840.1.323505.3.579.2. 593 1942 Unknown [id number] 2.840.1.590693.3.579.2. 593 1942 Unknown [id number] 2.840.1.715652.3.579.2. 593 1942 Unknown [id number] 2.840.1.097470.3.579.2. 1286 1942 Unknown [id number] 2.840.1.544384.3.579.2. 1286 1942 Unknown [id number] 2.16840.1.018208.3.579.2. 1259 1942 Unknown [id number] 2.16.840.1.006837.3.579.2. 1286 1942 Unknown [id number] 2.16.840.1.318948.3.579.2. 1286 1942 Unknown [id number] 2.16.840.1.756515.3.579.2. 1285 1942 Unknown [id number] 2.16.840.1.305082.3.579.2. 1285 1942 Unknown [id number] 2.16.840.1.515134.3.579.2. 1285 1942 Unknown [id number] 2.16.840.1.712164.3.579.2. 1285 1942 Unknown [id number] 2..840.1.745131.3.579.2. 1285 1942 Unknown [id number] 2.840.1.187729.3.579.2. 1285 1942 Unknown [id number] 2.840.1.056561.3.579.2. 1285 1942 Unknown [id number] 2.840.1.547742.3.579.2. 1285 1942 Unknown [id number] 2.840.1.547663.3.579.2. 1285 1942 Unknown [id number] 2.840.1.005696.3.579.2. 1285 1942 Unknown [id number] 2.840.1.886060.3.579.2. 1285 1942 Unknown [id number] 2.840.1.481665.3.579.2. 1285 1942 Unknown [id number] 2.840.1.334642.3.579.2. 1285 1942 Unknown [id number] 2.840.1.758755.3.579.2. 1285 1942 Unknown [id number] 2.16.840.1.001279.3.579.2. 1285 1942 Unknown [id number] 2.840.1.506924.3.579.2. 1285 1942 Unknown [id number] 2.16.840.1.582996.3.579.2. 1285 1942 Unknown [id number] 2.16.840.1.686519.3.579.2. 1285 1942 Unknown [id number] 2.16.840.1.326744.3.579.2. 1285 1942 Unknown [id number] 2.16.840.1.853805.3.579.2. 1285 1942 Unknown [id number] 2.16.840.1.923029.3.579.2. 1285 1942 Unknown [id number] 2.16.840.1.801465.3.579.2. 1285 1942 Unknown [id number] 2.16840.1.203571.3.579.2. 1285 1942 Unknown [id number] 2.16.840.1.884183.3.579.2. 1285 1942 Unknown [id number] 2.16.840.1.962486.3.579.2. 1285 1942 Unknown [id number] 2.16.840.1.077506.3.579.2. 1285 1942 Unknown [id number] 2.16.840.1.937741.3.579.2. 1285 1942 Unknown [id number] 2.16.840.1.468029.3.579.2. 1285 1942 Unknown [id number] 2.16.840.1.921103.3.579.2. 1285 1942 Unknown [id number] 2.16.840.1.540520.3.579.2. 1285 1942 Unknown [id number] 2.16.840.1.658514.3.579.2. 1286 1942 Unknown [id number] 2.16.840.1.579572.3.579.2. 6 1942 Unknown [id number] 2.16.840.1.987240.3.579.2. 6 1942 Unknown [id number] 2.16.840.1.170527.3.579.2. 1285 1942 Unknown [id number] 2.16.840.1.236011.3.579.2. 1286 1942 Unknown [id number] 2.16.840.1.202305.3.579.2. 1285 1942 Unknown [id number] 2.16.840.1.930347.3.579.2. 1285 1942 Unknown [id number] 2.16.840.1.133099.3.579.2. 1285 1942 Unknown [id number] 2.16.840.1.215366.3.579.2. 1286 Social History Date Type Detail Facility Start: 04-28-2012 End: 08-19-2024 Tobacco smoking status NHIS Ex-smoker [facility] Work Phone: Start: 04-28-1972 End: 04-28-1982 History of tobacco use Current smoker [facility] Work Phone: Start: 04-28-1972 End: 04-28-1982 History of tobacco use Cigarette Smoker [facility] Work Phone: End: 04-28-1982 History of tobacco use Pipe Smoker [facility] Work Phone: Start: 04-28-2012 End: 02-05-2024 Cigarettes smoked current (pack per day) - Reported 1 [facility] Start: 04-28-2012 End: 08-19-2024 Tobacco use and exposure Smokeless tobacco non-user [facility] Work Phone: Start: 12-04-2021 End: 05-11-2024 Alcohol intake Current drinker of alcohol (finding) [facility] Start: 04-15-2020 History SDOH Alcohol Frequency 2 [facility] Start: 04-15-2020 History SDOH Alcohol Std Drinks 1 [facility] Start: 03-13-2019 History SDOH Alcohol Comment occassional [facility] Start: 1940 Sex Assigned At Male [facility] Start: 08-06-2021 End: 06-06-2022 Exposure to SARS-CoV-2 (event) Not sure [facility] Start: 10-25-2022 Alcohol Comment rarely [facility] Start: 04-15-2020 End: 02-05-2024 Alcohol Use Disorder Identification Test - Consumption [AUDIT-C] [facility] How often to you hav e a drink containing alcohol? Monthly or less [facility] How many standard dr inks containing alcohol do you have on a typical day? 1 or 2 [facility] Frequency of Binge Drinking Not on file [facility] Start: 02-22-2019 Gender identity Identifies as male gender (finding) [facility] Start: 02-22-2019 Sexual orientation Heterosexual (prince barnhart) [facility] Has the [employer], or [employer] threatened to shut off services in your home in past 12Mo No [facility] Work Phone: (I/We) worried lizzie er (my/our) food would run out before (I/we) got money to buy more. Never true [facility] In the past 12 month s, was there a time when you were not able to pay the mortgage or rent on time? Yes [facility] Start: 08-19-2024 End: 09-22-2024 Alcoholic beverage intake Ex-drinker (finding) [facility] Are you now , , , , never or living with a partner? [facility] How often do you hav e 6 or more drinks on 1 occasion? Never [facility] Do you feel stress - tense, restless, nervous, or anxious, or unable to sleep at night because your mind is troubled all the time - these days [OSQ] Not at all [facility] Start: 08-17-2021 Alcohol Comment 1 beer/month [facility] Start: 1940 Sex Assigned At Not on file [facility] Start: 04-19-2015 Sex Male (finding) [facility] Tobacco smoking stat NHIS Tobacco smoking consumption unknown [facility] NEGATED: Highlighted rowStart: CRISTAL History of tobacco use Passive smoker [facility] Medical Equipment Procedure Code Equipment Code Equipment Origin al Text Equipment Identifier Dates [place] Cv 6x1in Thk1.65mm Ptfe - [id number] Start: 05-01-2012 Comment on above: Description: used fo r plrdgetts. Patch Cv 8x.8cm Tapr Vsgrd Bov - [id number] Start: 07-01-2012 Comment on above: Description: Right C arotid [id number]_[facility] Start: 03-24-2019 [id number] Start : 03-16-2019 [id number] Rossy vity Mri [id number] 250_[facility] Start: 03-24-2019 [id number] Reli ance 4-Front [id number] [id number]_[facility] Start: 03-24-2019 [id number] Harper clip Xt Delivery System - [id number] Start: 02-18-2024 Sys Kit 1 Sgc & Up To 3 Clips - [id number] Start: 02-18-2024 System Vascade 6 /7fr Collagen Compression Bioabsorbable Vascular - [id number] Start: 03-04-2024 Stent Precise Pr o Rx 8mm Nitinol 40mm 135cm Vascular Self Expand Micromesh - [id number] Start: 03-04-2024 Goals Date Patient Goal Desired Activity /State Personal health goal Personal health goal Comment on above: Formatting of this n ote might be different from the original. Evaluation of progress towards goal: To return home safely with spouse and attend outpatient therapy. Functional Status Date Assessment Result Facility 09-25-2024 Are you deaf, or do you have serious difficulty hearing No 09/25/2024 12:55 PM Allyn Garcia RN No [facility] 09-25-2024 Are you blind, or do you have serious difficulty seeing, even when wearing glasses No 09/25/2024 12:55 PM Allyn Garcia RN No [facility] 09-25-2024 Do you have serious difficulty walking or climbing stairs Yes 09/25/2024 12:55 PM Allyn Garcia, INOCENTE Yes [facility] 09-25-2024 Do you have difficul ty dressing or bathing No 09/25/2024 12:55 PM Allyn Garcia RN No [facility] 09-25-2024 Because of a physica l, mental, or emotional condition, do you have difficulty doing errands alone such as visiting a physician's office or shopping No 09/25/2024 12:55 PM Allyn Garcia, INOCENTE No [facility] 05-16-2024 Are you deaf, or do you have serious difficulty hearing No 05/16/2024 2:47 PM Sergio Valdez RN No [facility] 05-16-2024 Are you blind, or do you have serious difficulty seeing, even when wearing glasses No 05/16/2024 2:47 PM Sergio Valdez RN No [facility] 05-16-2024 Do you have serious difficulty walking or climbing stairs No 05/16/2024 2:47 PM Sergio Valdez RN No [facility] 05-16-2024 Do you have difficul ty dressing or bathing No 05/16/2024 2:47 PM DOTTIET Sergio Mina RN No [facility] 05-16-2024 Because of a physica l, mental, or emotional condition, do you have difficulty doing errands alone such as visiting a physician's office or shopping No 05/16/2024 2:47 PM Sergio Valdez RN No [facility] Mental Status Date Assessment Result Facility 09-25-2024 Because of a physica l, mental, or emotional condition, do you have serious difficulty concentrating, remembering, or making decisions No 09/25/2024 12:55 PM Allyn Garcia RN No [facility] 05-16-2024 Because of a physica l, mental, or emotional condition, do you have serious difficulty concentrating, remembering, or making decisions No 05/16/2024 2:47 PM EDT Sergio Mina RN No [facility] Clinical Notes 05-01-2012 to 03-02-2025 Telephone Encounter - Alison Tam RN - 03/02/2025 12:40 PM EDTTelephone Encounter - Alison Tam RN - 03/02/2025 12:40 PM EDTPatient InstructionsPatient InstructionsPatient Instructions Note Date & Type Note Facility 03-02-2025 Telephone encounter Note Called and spoke to the patient's daughter to schedule DCC on 03/03/[address] Wei. Provided time and instructions to the daughter. Alison Tam RN [facility] 03-02-2025 Miscellaneous Notes Called and spoke to the patient's daughter to schedule DCC on 03/03/[address] Wei. Provided time and instructions to the daughter. Alison Tam RN ----- Message from Ema Gallardo RN sent [...] 2025 3:53 PM documented in this encounter [facility] 03-02-2025 Telephone encounter Note ----- Message from Ema Gallardo RN sent at 03/01/2025 3:53 PM EDT ----- Regarding: DCC Please schedule patient for DCC. Timeframe: Saturday Date of last H&P: 03/01 Three weeks uninterrupted anticoagulation: Yes MERRITT needed: No Special instructions: patient to have remote check tomorrow to see if he is still in AF Ema Rankin RN March 01, 2025 3:53 PM [facility] 03-01-2025 Note In-Office Device Romy luation OPD with Dr. Wei * Device type: BST dual lead ICD * Presenting Rhythm: AF/VS-AIR MOVING TECHNICIAN * Underlying Rhythm: AF with variable ventricular [...] or infection. * Other Diagnostics: *AP 1%, AIR MOVING TECHNICIAN <1%, AT/AF burden 1% (however likely higher d/t DDIR programming)* Tachycardia: AF * Stored EGMs are consistent with or suggestive of Atrial Fibrillation, intermittent RVR observed on stored episodes * AT/AF [place]: 1% * OAC: Eliquis Appropriate VT Therapy: [...] Docket/PDF found below under Scanned Documents . [facility] 03-01-2025 Instructions Nj Wei MD - 03/01/2025 7:07 PM [...] If you feel worse or remain in AFib, you may need to return for cardioversion. - [...] up with your heart failure specialist, Dr. Fernandes, as planned in June. If your symptoms worsen before then, please contact their office for an earlier appointment. - If you experience severe symptoms, such as chest pain, significant shortness of breath, , or dizziness, go to the emergency room immediately. Please let us know if you have any questions or concerns about your care plan. documented in this encounter [facility] 03-01-2025 Note [facility] 03-01-2025 History of Present illness Narrative Images from the original note were not included. [facility] [place] Jose Martin Silva Department of Cardiovascular Medicine SECTION OF CARDIAC PACING and ELECTROPHYSIOLOGY OUTPATIENT VISIT DATE March 01, 2025 OUTPATIENT VISIT TYPE ESTABLISHED PRIMARY CARE PHYSICIAN: Samm Thompson [address] [id number] REFERRING PHYSICIAN: Nj Wei [address] [facility] [id number] CHIEF COMPLAINT: PVCs and atrial fibrillation HISTORY [...] 200 mg daily. Unfortunately he presented to the hospital on 09/29/24 for cardiogenic shock with [...] for VT prevention, off mexiletine. He had a bedside US guided paracentesis with removal of 6 Liters and started on loop diuretics. He was discharged back to [facility] for further care on 10/17/24. He remains managed with Dr. Fernandes with last office visit on 12/21/24 recommending [...] (gastroesophageal reflux disease) Heart failure, acute systolic ([facility]) Hypertension Hypothyroid Myocardial infarct, old Occlusion and stenosis of carotid artery without mention of cerebral infarction Prostate cancer ([facility]) 2020 PVC (premature ventricular contraction) PVD (peripheral vascular disease) ([facility]) 11/17/2012 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 Systolic heart failure ([facility]) Thyroid disorder 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 kidney disease, unspecified CKD stage, unspecified whether correction insulin use ([facility]) 04/26/2023 Ventricular tachycardia ([facility]) 04/28/2012 PAST SURGICAL HISTORY Procedure [...] Artery Disease Father Heart Attack Father fatal [place] at age 77 Ischemic Heart Disease Brother CABGx6 first at age 72 No Known Problems Maternal Grandmother No Known Problems Maternal Grandfather No Known Problems Paternal Grandmother No Known Problems Paternal Grandfather No Known Problems Daughter No Known Problems Daughter No Known Problems Daughter other (Other) Other paternal cousin at age 50 of [place] ALLERGIES: ALLERGIES Allergen Reactions Latex Rash Adhesive [...] Wt 78.9 kg (174 lb) BMI 23.60 kg/m CARDIOVASCULAR MEDICINE TESTING: Device check 03/01/25: In-Office Device Evaluation OPD with Dr. Wei * Device type: BST dual lead ICD * Presenting Rhythm: AF/VS-AIR MOVING TECHNICIAN * Underlying Rhythm: AF with variable ventricular [...] or infection. * Other Diagnostics: *AP 1%, AIR MOVING TECHNICIAN <1%, AT/AF burden 1% (however likely higher d/t DDIR programming)* Tachycardia: AF * Stored EGMs are consistent with or suggestive of Atrial Fibrillation, intermittent RVR observed on stored episodes * AT/AF [place]: 1% * OAC: Eliquis Appropriate VT Therapy: [...] is moderately to severely decreased. - Percutaneous [id number] repair of the mitral valve with 1 [...] performed on 09/23/2024 patient is [facility] compred to V-paced last echo PLAN [...] night, contributing to disrupted sleep. He denies any recent episodes of angina but notes occasional leg [...] and underwent CABG. 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 He has a pacemaker and is on anticoagulation therapy with Eliquis 2.5 mg BID. He missed a dose on February 20 but has been otherwise adherent. He lives in [place] and has three daughters who assist with his care. He has a follow-up appointment with his heart failure specialist, Dr. Fernandes, in June. PHYSICAL EXAMINATION General: Alert & [...] edema. ASSESSMENT/PLAN 1. 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 Clinically stable, no current angina reported. 2. 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 S/P CABG (coronary [...] medications as prescribed. - Follow-up with Dr. Fernandes in June. 4. Frequent PVCs Large burden of PVCs likely associated with myocardial scarring from previous MIs. Currently managed with mexiletine 150 mg BID, reduced from TID due to previous liver dysfunction. - Continue mexiletine 150 mg BID. - Monitor liver function tests regularly - Reports low burden for now symptomatically 5. VT (ventricular tachycardia) ([facility]) History of VT managed with ICD. [...] kidney disease, unspecified CKD stage, unspecified whether watermelon inspector insulin use (HCC) Stage 3b chronic kidney [...] medication adherence to reduce stroke risk. 9. 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 (current) use of anticoagulants Currently on Eliquis 2.5 mg BID. Missed one dose on February 20. - Reinforce the importance of taking Eliquis as prescribed to minimize stroke risk. - Monitor for any signs of bleeding or adverse effects. I personally interviewed, confirmed and edited the above information as obtained by others. CONTACT INFORMATION: Nj Wei MD Recording using Source MDx software for draft documentation of the visit was discussed with the patient/authorized distribution sales representative; all questions welcomed and answered. Patient/authorized distribution sales representative agreed to proceed documented in this encounter [facility] 12-21-2024 Note [facility] 12-21-2024 History of Present illness Narrative Answers submitted by the patient for this visit: Review of Systems Heart Failure (Submitted on 12/21/2024) Fever : No Night sweats: No Recent unintentional weight change: Yes Vision Disturbance: No Hearing Loss: No A cough: No Difficulty Breathing?: No Chest pain: No Leg Swelling: Yes Skipping or irregular heartbeats?: No Feel like passing out?: No Black tarry stools: No Nausea: Yes Diarrhea: No Swelling in your abdomen?: Yes Fill up quickly when you eat?: No Difficulty Urinating?: No Joint pain or stiffness: Yes Muscle aches: No A rash: No Dizziness: No Headaches: No Heart[facility] V[facility] Thor[facility] [place] Department of Cardiovascular Medicine VIRTUAL VIDEO VISIT ESTABLISHED OUTPATIENT VISIT SERVICE DATE: 12/21/2024 Patient: José Miguel Antonio Jr. SERVICE TIME: 1:12 PM : 1940 This is a virtual video visit. It required patient-provider interaction for the medical decision making as documented below. José Miguel Antonio Jr. has consented to this video encounter. I have communicated my name and active licensure. The patient's identity and physical location were verified at the time of this visit. Either the patient or their legal distribution sales representative has been informed of the risks and benefits of -- and alternatives to -- treatment through a remote evaluation and consents to proceed with the evaluation remotely. José Miguel Antonio Jr. is a 84 year old male seen for follow-up. CHIEF COMPLAINT HISTORY OF PRESENT ILLNESS José Miguel Antonio Jr. is a 84 year old male complex post discharge course detailed below 09-17-24 to 09-25-24 [facility] 09-25-24- 09-29-24 [facility] [place] Nauseous, not eating, thought possible Norovirus admitted to [facility] 09-29-24 to 10-17-24 [facility] Poor Liver Function and worsening Kidney Function (sepsis? Mexiletine?) LABS UPON ADMISSION: AST 767 ALT 492 POTASSIUM 3.9 BUN 74 CREATININE 4.06--> 2.1 PARACENTESIS done on 09/30/24 removed 5-6L LIMITED ECHO (TTE) 09.30.24 EF 10% LIMITED ECHO (TTE) 10.14.24 EF 5% Stopped Mexiletine upon admission then restarted on 10/10 150mg twice a day Switched diuretic to Bumex 10-17-24 to 11-04-24 [facility] 11-04-24 to present [facility] 11.21.24 [facility] ED VISIT possible pneumonia. 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) 09/03/2022 Dyslipidemia Gastrointestinal hemorrhage 05/11/2024 GERD (gastroesophageal reflux disease) Heart failure, acute systolic ([facility]) Hypertension Hypothyroid Myocardial infarct, old Occlusion and stenosis of carotid artery without mention of cerebral infarction Prostate cancer ([facility]) 2020 PVC (premature ventricular contraction) PVD (peripheral vascular disease) ([facility]) 11/17/2012 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 Systolic heart failure ([facility]) Thyroid disorder 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 kidney disease, unspecified CKD stage, unspecified whether correction insulin use ([facility]) 04/26/2023 Ventricular tachycardia ([facility]) 04/28/2012 PAST SURGICAL HISTORY Procedure Laterality Date ANGIOGRAPHY, EXT CAROTID Right 2012 CABG (3) VEIN GRAFTS & ARTERIAL GRAFT(S) 05/01/2012 Median sternotomy, coronary artery bypass grafting with in situ left internal thoracic artery to the LAD, and reverse saphenous vein graft to the posterior descending artery and obtuse marginal. HEART CATHETERIZATION ICD (ICD) FAMILY HISTORY Problem Relation Age of Onset other (atrial fibrillation) Mother other (CHF) Mother other (Other) Mother at age 96 Coronary Artery Disease Father Heart Attack Father fatal [place] at age 77 Ischemic Heart Disease Brother CABGx6 first at age 72 No Known Problems Maternal Grandmother No Known Problems Maternal Grandfather No Known Problems Paternal Grandmother No Known Problems Paternal Grandfather No Known Problems Daughter No Known Problems Daughter No Known Problems Daughter other (Other) Other paternal cousin at age 50 of [place] Social History Tobacco Use Smoking status: Former Current packs/day: 0.00 Average packs/day: 1 pack/day for 10.0 years (10.0 ttl pk-yrs) Types: Cigarettes, Pipe Start date: 04/28/1972 Quit date: 04/28/1982 Years since quittin.6 Passive exposure: Never Smokeless tobacco: Never Vaping Use Vaping status: Never Used Substance Use Topics Alcohol use: Not Currently Comment: rarely Drug use: Never ALLERGIES Allergen Reactions Latex Rash Adhesive Tape (Keyanna* Rash CURRENT MEDICATIONS mexiletine (MEXITIL) 150 mg capsule Take 150 [...] Take 100 mg by mouth once daily. levothyroxine (SYNTHROID) 88 mcg tablet Take 1 tablet by mouth once daily. zinc sulfate 220 mg (50 mg zinc) capsule Take 1 capsule by mouth once daily. triamcinolone acetonide (KENALOG) 0.1 % cream Apply 1 application to affected area two times a day. cetirizine (ZYRTEC) 10 mg tablet Take 1 tablet by mouth once daily as needed. coenzyme Q10 (CO Q-10) 100 mg cap capsule Take 100 mg by mouth once daily. atorvastatin (LIPITOR) 40 mg tablet Take 1 tablet by mouth daily at bedtime. REVIEW OF SYSTEMS: PHYSICAL EXAMINATION: VIDEO EXAM: (if completed, performed via video enabled technology) GENERAL: alert and appropriate, in no distress, well-hydrated, well nourished, and thin PATIENT ENTERED QUESTIONNAIRE SCORES 06/01/2024 PHQ-9 PHQ-2 Score 4 PHQ-9 Score 16 03/18/2024 10/02/2022 PROMIS [employer] - (T-Scores [...] stenting #Severe ICM (EF 15%) s/p DC-ICD (2018)--> 5-10% #Prior CABG (2011, last cath in 2021 with patent OTTO-LAD and SVG to OM, with occluded VG to PDA) #Severe MR s/p MV clip 02/18/2024 with residual moderate MR, no further clipping indicated #PVCs/VT on -elisabeth #Suspected LV thrombus 03/29/24 on Xarelto #Prior stroke 2020 s/p tPA without deficits #COPD, remote tobacco use, not on oxygen #CKD stage 3 (Cr ~1.5-2.0) #MYLES recently with Cre 4.1-->2.1 #Symptomatic carotid stenosis (amaruosis fugax left eye) s/p right CEA 2012 and left carotid stenting 03/09/24 NYHA Functional Class: II Stage: C heart failure Target weight: 166 Etiology: ischemic, valvular (FMR) 10/15/24 RA 21 RV 58/21, 23 PA 58/27 [40] PCWP 27 TPG 13 AO 113/71 [89] Cardiac output /cardiac index 5.19/2.62 AO sat /PA sat 95%/61% Systemic Vascular Resistance 987 Dynes sec cm?5 Pulmonary Vascular Resistance (PVR) = 292.87 dynes-sec/cm5 Guideline Directed Medical Therapy Most recent GDMT score: 3 NYHA class 3. Marked limitation of physical activity. Less than ordinary physical activity leads to symptoms (moderate CHF). MARGARETTE/ARB/ARNI NO Not taking due to hypotension Beta Jasbir YES - metoprolol succinate ER Target dose suboptimal - limited by intolerance Aldosterone antagonist NO Not taking due to renal function SGLT2i YES - dapagliflozin propanediol Target dose achieved Hydralazine/Isosorbide Dinitrate NO Not indicated Ivabradine NO Not indicated PLAN (Active Outpatient Problems): -resume farixga 10 mg daily -check blood work in 2 weeks -follow-up in 6 months with echo -cardiac rehab I personally spent 45 minutes in total time involved in the management and care of this patient. Carmela Fernandes MD December 21, 2024 1:12 PM documented in this encounter [facility] 12-03-2024 Telephone encounter Note Date: December 03, 2024 Time: 4:27 PM The following orders/tests have been written down, read back and confirmed as ordered by Nj Wei MD . Per Dr. Wei he could be admitted to the hospital to try a modified dose of quinidine. Or he could have a MERRITT to see if clot is dissolved and have an ablation if it is. Contacted the patient's daughter and updated her. She will call back with her decision. Ema Rankin RN [facility] 12-03-2024 Miscellaneous Notes Date: December 03, 2024 Time: 4:27 PM The following orders/tests have been written down, read back and confirmed as ordered by Nj Wei MD . Per Dr. Wei he could be admitted to the hospital to try a modified dose of quinidine. Or he could have a MERRITT to see if clot is dissolved and have an ablation if it is. Contacted the patient's daughter and updated her. She will call back with her decision. Ema Rankin RN Contacted the patient's daughter. She reports after local physician had a discussion with Dr. Wei he was restarted on mexiletine 150 mg BID. The patient has developed stomach issues on mexiletine. He is unable to eat. He tries to take mexiletine with food. He has lost weight. Will discuss with Dr. Wei. Ema Rankin RN December 03, 2024 Patient Contact Number: [phone] (home) [phone] (cell) Patient last seen within the last year: Yes Reason For Call: Medication Issue/Question: Patient's daughter called stated the patient is still in a penit[facility] and was recently placed back on mexiletine. Please contact Charu [phone] Thank you Adm Galilea Senior Designer/Art Director documented in this encounter [facility] 12-03-2024 Telephone encounter Note Contacted the patient's daughter. She reports after local physician had a discussion with Dr. Wei he was restarted on mexiletine 150 mg BID. The patient has developed stomach issues on mexiletine. He is unable to eat. He tries to take mexiletine with food. He has lost weight. Will discuss with Dr. Wei. Ema Rankin RN [facility] 12-03-2024 Telephone encounter Note December 03, 2024 Patient Contact Number: [phone] (home) [phone] (cell) Patient last seen within the last year: Yes Reason For Call: Medication Issue/Question: Patient's daughter called stated the patient is still in a penitentiary and was recently placed back on mexiletine. Please contact Charu [phone] Thank you Raquel Fletcher, Adm Senior Designer/Art Director [facility] 12-03-2024 History of Present illness Narrative Images from the original note were not included. Subjective Patient ID: José Miguel Antonio Jr. is a 84 y.o. male who presents for Toenail Care (Pt is here today with his daughter for nail care, he is not diabetic. His last A1c 5.6/SS: 11). HPI Initial patient encounter and assessment. Currently resides at local skilled facility. Accompanied by his daughter, Maria De Jesus. Presents for care of deformed toenails. Chronic, stable condition multiple years duration. Denies history of injury or trauma. Identifies multiple digits as problematic/mildly symptomatic; describing mild pressure discomfort with footwear; as well as catching and snagging on clothing, bed sheets etc.. Denies bleeding or drainage. Risk factors: Medical comorbidities. Eliquis therapy. Mobility, flexibility and dexterity restraints. Peripheral arterial disease. Toenail deformity. Digital and/or shoe trauma and related complications. Medications Current Outpatient Medications: apixaban (Eliquis) 2.5 MG tablet, Take 2.5 mg by mouth in the morning and 2.5 mg before bedtime., Disp: , Rfl: bumetanide (Bumex) 2 MG tablet, Take by mouth Daily, Disp: , Rfl: cetirizine (ZyrTEC) 10 MG tablet, Take by mouth, Disp: , Rfl: levothyroxine (Tirosint) 88 MCG capsule, Take by mouth Daily before meals, Disp: , Rfl: metoprolol succinate XL (Toprol-XL) 25 MG 24 hr tablet, Take by mouth Do not crush or chew., Disp: , Rfl: mexiletine (Mexitil) 150 MG capsule, Take 150 mg by mouth every 8 (eight) hours, Disp: , Rfl: ondansetron (Zofran) 4 MG tablet, Take by mouth, Disp: , Rfl: potassium chloride CR (Klor-Con M20) 20 MEQ ER tablet, Take 20 mEq by mouth Daily Do not crush or chew., Disp: , Rfl: thiamine (Vitamin B-1) 100 MG tablet, Take 100 mg by mouth Daily, Disp: , Rfl: Allergies Penicillins Past Surgical History Past Surgical History: Procedure Laterality Date CAROTID STENT 02/[address] ANGIOGRAM NECK 06/16/[address] GUIDED TRANSVAGINAL TRANSRECTAL FLUID DRAIN 02/26/2024 CT GUIDED TRANSVAGINAL TRANSRECTAL FLUID DRAIN 02/26/2024 CT GUIDED TRANSVAGINAL TRANSRECTAL FLUID DRAIN 08/17/2021 CT GUIDED TRANSVAGINAL TRANSRECTAL FLUID DRAIN 08/17/2021 Family History No family history on file. Objective General assessment: Alert and oriented. Pleasant disposition. Ambulatory with walker assist. Wearing new balance footwear. Vascular: DP faintly palpable bilateral. PT faintly palpable bilateral. CFT slightly delayed all digits. Gradient temperature: Warm-cool bilateral with stable acrocyanosis of the digits. Symmetrical, mild, non-pitting edema bilateral ankles. Neurologic: Tactile and light touch sensation intact. Dermatologic: Intact. Skin turgor is fair. Web space areas are clean, dry, non-inflamed. Mild-moderate noninflamed xerosis with keratotic scaling of both heels. Toenail pathology: All digits: Toenail dystrophy and friability. No clinical signs of open wound or ulceration. Orthopedic: Range of motion: Functional but limited ankle and subtalar joint range of motion. Restricted 1st MTP joint range of motion bilateral; consistent with hallux limitus. Deformity: Mild HAV deformity bilateral. Lesion pattern: No forefoot or digital discrete keratotic lesions are noted. Radiology: Assessment/Plan Mildly symptomatic onychodystrophy multiple digits. Chronic, stable PAD (Q8). Chronic, stable acrocyanosis. Plan: Review of all clinical findings, etiology and contributing/aggravating factors, high-risk nature of the condition, treatment strategy, rationale and objectives. [place] agreement for palliative care measures. Recommend Amlactin cream each night both feet. Procedure: Toenail debridement: Aseptic technique: Hand and power instrumentation: Onychodebridement in length and thickness, with curettage of any cryptotic margins, all periungual debris; providing effective symptom and pressure relief; reducing shoe and digital trauma; reducing potential risks associated with the dysvascular foot condition and related complications. This note was created with the assistance of a speech recognition program. While intending to generate a timely document that accurately reflects the content of the visit, no guarantee can be provided that every grammatical or spelling mistake has been or will be identified or corrected. Thank you for your understanding. Ayana Evans DPM documented in this encounter [facility] 12-03-2024 Instructions Ayana Evans DPM - 12/03/2024 10:45 AM EDT As noted documented in this encounter [facility] 10-17-2024 Note [facility] 10-17-2024 Note [facility] 10-16-2024 Note [facility] 10-16-2024 Note [facility] 10-16-2024 Note [facility] 10-16-2024 Note [facility] 10-16-2024 Note [facility] 10-15-2024 Note [facility] 10[facility]15-2024 Note [facility] 10-15-2024 Note [facility] 10-15-2024 Note [facility] 10-15-2024 Note [facility] 10-15-2024 Note [facility] 10-15-2024 Note [facility] 10-15-2024 Note [facility] 10-15-2024 Note [facility] 10-14-2024 Note [facility] 10-14-2024 Note [facility] 10-14-2024 Note [facility] 10-14-2024 Note [facility] 10-14-2024 Note [facility] 10-14-2024 Note [facility] 10-13-2024 Note [facility] 10-13-2024 Note [facility] 10-13-2024 Note [facility] 10-13-2024 Note [facility] 10-12-2024 Note [facility] 10-12-2024 Note [facility] 10-12-2024 Note [facility] 10-12-2024 Note [facility] 10-12-2024 Note [facility] 10-12-2024 Note [facility] 10-11-2024 Note [facility] 10-10-2024 Note [facility] 10-09-2024 Note [facility] 10-09-2024 Note [facility] 10-09-2024 Note [facility] 10-09-2024 Note [facility] 10-09-2024 Note Occupational Therapy Name: José Miguel Antonio Date of : 1940 Today's Date: 10/09/24 Pt is unable to be seen for therapy at this time secondary to requested to have tx later this afternoon Check No Charge Time attempted: 1120 [facility] 10-09-2024 Note [facility] 10-09-2024 Note [facility] 10-09-2024 Note [facility] 10-08-2024 Note [facility] 10-08-2024 Telephone encounter Note EP STAFF ADDENDUM: [...] Wei MD October 08, 2024 4:08 PM [facility] Work Phone: 10-08-2024 Miscellaneous Notes [...] 2024 4:08 PM documented in this encounter [facility] 10-08-2024 Note [facility] 10-08-2024 Note [facility] 10-08-2024 Note [facility] 10-07-2024 Note [facility] 10-07-2024 Note [facility] 10-07-2024 Note [facility] 10-07-2024 Note [facility] ([facility]) is unable to accept the patient. Alternative placement options are being considered. [facility] 10-07-2024 Telephone encounter Note Contacted the patient's daughter. The patient is currently admitted to [place]. His liver enzymes are elevated. Mexiletine has been discontinued. He continues to have PVCs. She wants recommendations. Instructed her to have the treating staff contact Dr. Wei. Ema Rankin RN [facility] 10-07-2024 Miscellaneous Notes Contacted the patient's daughter. The patient is currently admitted to [place]. His liver enzymes are elevated. Mexiletine has been discontinued. He continues to have PVCs. She wants recommendations. Instructed her to have the treating staff contact Dr. Wei. Ema Rankin RN October 07, 2024 Patient Contact Number: [phone] Patient last seen within the last year: Yes Reason For Call: Medication Issue/Question: Physician:Nj Wei MD Patient was informed that non-urgent calls may be returned within the next three business days. Yes The patients daughter Charu called to report that her dad is admitted to [facility] as of 09/29/24 due to not eating, nausea. They believe he was having a reaction to Mexiletine. He is having PVC's due to he was off the medication. The facility needs to know today if he can go back Amiodarone or a lower does of Mexiletine. [place], Admin documented in this encounter [facility] 10-07-2024 Telephone encounter Note October 07, 2024 Patient Contact Number: [phone] Patient last seen within the last year: Yes Reason For Call: Medication Issue/Question: Physician:Nj Wei MD Patient was informed that non-urgent calls may be returned within the next three business days. Yes The patients daughter Charu called to report that her dad is admitted to [facility] as of 09/29/24 due to not eating, nausea. They believe he was having a reaction to Mexiletine. He is having PVC's due to he was off the medication. The facility needs to know today if he can go back Amiodarone or a lower does of Mexiletine. Le Dick[place], Admin [facility] 10-06-2024 Note [facility] 10-06-2024 Note [facility] 10-06-2024 Note [facility] 10-06-2024 Note [facility] 10-06-2024 Note [facility] 10-05-2024 Note [facility] 10-05-2024 Note [facility] 10-05-2024 Note [facility] 10-04-2024 Note [facility] 10-04-2024 Note [facility] 10-03-2024 Note [facility] 10-03-2024 Note [facility] 10-03-2024 Note [facility] 10-03-2024 Note [facility] 10-02-2024 Note [facility] 10-02-2024 Note [facility] 10-02-2024 Note [facility] 10-02-2024 Note [facility] 10-02-2024 Note [facility] 10-02-2024 Note [facility] 10-01-2024 Note [facility] 10-01-2024 Note Updates sent to Molly Vidal. SW following [facility] 10-01-2024 Note [facility] 10-01-2024 Note [facility] 10-01-2024 Note [facility] 10-01-2024 Note [facility] 09-30-2024 Note Satisfactory for romy luation. Examination of the ThinPrep slide and cell block reveals benign mesothelial cells, inflammation and proteinaceous debris. [facility] Comment on above: Performed By: #### L [id number] ####[facility] ([facility])[address] [place] [id number] 09-30-2024 Note [facility] 09-30-2024 Note [facility] 09-30-2024 Note [facility] 09-29-2024 Note [facility] 09-29-2024 Note [facility] 09-25-2024 Note [facility] 09-25-2024 Note [facility] 09-24-2024 Note [facility] 09-23-2024 Note [facility] 09-23-2024 Note [facility] 09-22-2024 Note [facility] 09-22-2024 Note [facility] 09-21-2024 Note [facility] 09-21-2024 History of Present illness Narrative HEART [...] TIME: 1:21 PM documented in this encounter [facility] 09-21-2024 Note [facility] 09-21-2024 Note [facility] 09-21-2024 Note [facility] 09-20-2024 Note [facility] 09-20-2024 Note [facility] 09-19-2024 Note [facility] 09-19-2024 Note [facility] 09-18-2024 Note [facility] 09-18-2024 Note [facility] 09-18-2024 Note [facility] 09-18-2024 Note In-Office Device Romy dianeation DUAL LEAD ICD EVALUATION: *Room: [facility] * Presenting Rhythm: /VS * Underlying Rhythm: [...] Docket/PDF found below under Scanned Documents . [facility] 09-17-2024 Note [facility] 09-17-2024 Note HNO ID: [id number] Author: YOSELIN VALLEJO RT(R) Service: ? Author Type: Technologist Type: Progress Notes Filed: 09/17/2024 15:48 Note Text: xray: chest [facility] 09-17-2024 Telephone encounter Note Recent ICD remote shows patient received an ICD shock yesterday 09/16/24 and had 20 other VT episodes treated with ATP. Patient was hospitalized locally at [facility] 09/12-09/16/24 for edema and volume overload. Diuretics [...] are agreeable and will be coming to [facility] Main ED. [facility] 09-17-2024 Miscellaneous Notes Recent ICD remote shows patient received an ICD shock yesterday 09/16/24 and had 20 other VT episodes treated with ATP. Patient was hospitalized locally at [facility] 09/12-09/16/24 for edema and volume overload. Diuretics [...] are agreeable and will be coming to [facility] Main ED. documented in this encounter [facility] 09-11-2024 Telephone encounter Note Spoke with patient: He has been taking torsemide 20 mg BID with additional tablet as needed. He will be take 40 mg for his afternoon dose today. Dr. Nirmal reid with taking torsemide 40 mg BID. Follow up with lab work mid last week. Ernestina Alvarez RN September 11, 2024 1:22 PM [facility] 09-11-2024 Miscellaneous Notes Spoke with patient: [...] José Miguel Antonio Jr. Patient Contact Number: [phone] (home) [phone] (cell) Date of last office visit: 08/19/2024 [...] Yes Martha Prado documented in this encounter [facility] 09-10-2024 Telephone encounter Note Called the [...] Springer RN September 10, 2024 2:08 PM [facility] 09-10-2024 Telephone encounter Note September 10, 2024 Name: José Miguel Antonio Jr. Patient Contact Number: [phone] (home) [phone] (cell) Date of last office visit: 08/19/2024 [...] next three business days. Yes Martha Prado [facility] 09-07-2024 Telephone encounter Note Spoke to patient's daughter. Let her know we would update Dr Wei for next steps. She notes that her father said his feet were swollen, red and leaking . Advised to update Dr Fernandes and to have PCP look at feet. Winsome Ivory RN [facility] 09-07-2024 Miscellaneous Notes Spoke to patient's daughter. Let her know we would update Dr Wei for next steps. She notes that her father said his feet were swollen, red and leaking . Advised to update Dr Fernandes and to have PCP look at feet. Winsome Ivory RN September 07, 2024 Patient Contact Number: [phone] (home) [phone] (cell) Patient last seen within the last year: Yes Reason For Call: Follow-up Questions: Patient's daughter Charu called stated the patient started amiodarone on 08/31 and he has broken out severely from the medication rash started on 09/03. They contacted the nurse cloud operations engineer and was advised to stop the medication and is feeling better. Please contact Charu [phone] Thank you Adm Galilea Senior Designer/Art Director documented in this encounter [facility] 09-07-2024 Telephone encounter Note September 07, 2024 Patient Contact Number: [phone] (home) [phone] (cell) Patient last seen within the last year: Yes Reason For Call: Follow-up Questions: Patient's daughter Charu called stated the patient started amiodarone on 08/31 and he has broken out severely from the medication rash started on 09/03. They contacted the nurse cloud operations engineer and was advised to stop the medication and is feeling better. Please contact Charu [phone] Thank you Adm Galilea Senior Designer/Art Director [facility] 09-03-2024 Telephone encounter Note Contacted the patient. He reports at the time of the event he was on a call that made him upset. He denies any symptoms during the event. Ema Rankin, INOCENTE [facility] 09-03-2024 Miscellaneous Notes Contacted the patient. He reports at the time of the event he was on a call that made him upset. He denies any symptoms during the event. Ema Rankin, INOCENTE September 03, 2024 Patient Contact Number: [phone] (home) [phone] (cell) Patient last seen within the last year: Yes Reason For Call: Follow-up Questions: Patient called stated he recalls what he was doing at the time he was agitated on a phone call. Thank you Adm Galilea Senior Designer/Art Director Contacted the patient. He feels ok. He [...] mildly tachy when in AF AP 2% AIR MOVING TECHNICIAN 15% documented in this encounter [facility] 09-03-2024 Telephone encounter Note September 03, 2024 Patient Contact Number: [phone] (home) [phone] (cell) Patient last seen within the last year: Yes Reason For Call: Follow-up Questions: Patient called stated he recalls what he was doing at the time he was agitated on a phone call. Thank you Adm Galilea Senior Designer/Art Director [facility] 09-03-2024 Telephone encounter Note Contacted the patient. He feels ok. He was unaware of the episode on 09/02. Will review with Dr. Wei. Ema Rankin RN [facility] 09-03-2024 Telephone encounter Note ----- Message from Zahra Salgado RN sent at 09/03/2024 8:25 AM [facility] ----- Regarding: pt update Dr. Wei [...] mildly tachy when in AF AP 2% AIR MOVING TECHNICIAN 15% [facility] 08-28-2024 Telephone encounter Note Date: August [...] x-ray and pulmonary function. Ema Rankin RN [facility] 08-28-2024 Telephone encounter Note ----- Message [...] you to review. ThanksLisa RN Device Clinic [facility] 08-28-2024 Miscellaneous Notes Date: August 28, 2024 [...] you to review. ThanksLisa RN [facility] Clinic documented in this encounter [facility] 08-19-2024 Note [facility] 08-19-2024 History of Present illness Narrative HOLTER MONITOR APPLICATION Patient Name: José Miguel Antonio Jr. Clinic Number: [id number] Chest is cleansed with alcohol Skin prep [...] or 48 hours 6.) Call with problems [phone] Patient expresses good verbal understanding of instructions Jose Khan documented in this encounter [facility] 08-19-2024 Instructions Carmela Fernandes MD - 08/19/2024 2:08 PM EST -Blood work today -will consider spironolactone 12.5 mg daily pending blood work -You have about 5 extra pounds on you -will add you on 10/05/2024 as in-person visit -48hr holter documented in this encounter [facility] 08-19-2024 Note [facility] 08-19-2024 History of Present illness Narrative Images from the original note were not included. [facility] [place] [facility] SECTION OF HEART FAILURE and CARDIAC TRANSPLANT MEDICINE OUTPATIENT VISIT DATE August 19, 2024 OUTPATIENT VISIT TYPE Established Patient PRIMARY CARE PHYSICIAN: Samm Thompson [address] [place] [address] CHIEF COMPLAINT: HFrEF NURSING INTAKE (Patient s [...] combined systolic and diastolic congestive heart failure ([facility]) 09/03/2022 Dyslipidemia Gastrointestinal hemorrhage 05/11/2024 GERD (gastroesophageal reflux disease) Heart failure, acute systolic ([facility]) Hypertension Hypothyroid Myocardial infarct, old Occlusion and stenosis of carotid artery without mention of cerebral infarction Prostate cancer ([facility]) 2020 PVC (premature ventricular contraction) PVD (peripheral vascular disease) ([facility]) 11/17/2012 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 Systolic heart failure ([facility]) Thyroid disorder 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 kidney disease, unspecified CKD stage, unspecified whether correction insulin use ([facility]) 04/26/2023 Ventricular tachycardia ([facility]) 04/28/2012 PAST SURGICAL HISTORY Procedure [...] Artery Disease Father Heart Attack Father fatal [place] at age 77 Ischemic Heart Disease Brother CABGx6 first at age 72 No Known Problems Maternal Grandmother No Known Problems Maternal Grandfather No Known Problems Paternal Grandmother No Known Problems Paternal Grandfather No Known Problems Daughter No Known Problems Daughter No Known Problems Daughter other (Other) Other paternal cousin at age 50 of [place] ALLERGIES: ALLERGIES Allergen Reactions Latex Rash Adhesive [...] Take 100 mg by mouth once daily. 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 Give 1 tablet by mouth every 24 hours for give with 15mg =75mg total thyroid (AGRICULTURAL SCIENCES PROFESSOR THYROID) 15 mg tablet Take 1 tablet [...] maximal dimension of 4.3 cm. - Percutaneous ciqe-vq-vfkj repair of the mitral valve with 1 [...] non-medical management as above. Paulina Fernandes MD [facility] Section Of Heart Failure and Cardiac Transplant Medicine [facility] [place] [facility] Desk [address] [place] [address] documented in this encounter [facility] 08-19-2024 History of Present illness Narrative Images from the original note were not included. [facility] [place] Jose Martin Silva Department of Cardiovascular Medicine SECTION OF CARDIAC PACING and ELECTROPHYSIOLOGY OUTPATIENT VISIT DATE August 19, 2024 OUTPATIENT VISIT TYPE ESTABLISHED PRIMARY CARE PHYSICIAN: Samm Thompson [address] [place] [address] REFERRING PHYSICIAN: No referring provider defined for [...] combined systolic and diastolic congestive heart failure ([facility]) 09/03/2022 Dyslipidemia Gastrointestinal hemorrhage 05/11/2024 GERD (gastroesophageal reflux disease) Heart failure, acute systolic ([facility]) Hypertension Hypothyroid Myocardial infarct, old Occlusion and stenosis of carotid artery without mention of cerebral infarction Prostate cancer ([facility]) 2020 PVC (premature ventricular contraction) PVD (peripheral vascular disease) ([facility]) 11/17/2012 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 Systolic heart failure ([facility]) Thyroid disorder 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 kidney disease, unspecified CKD stage, unspecified whether watermelon inspector insulin use ([facility]) 04/26/2023 Ventricular tachycardia ([facility]) 04/28/2012 PAST SURGICAL HISTORY Procedure [...] Artery Disease Father Heart Attack Father fatal [place] at age 77 Ischemic Heart Disease Brother CABGx6 first at age 72 No Known Problems Maternal Grandmother No Known Problems Maternal Grandfather No Known Problems Paternal Grandmother No Known Problems Paternal Grandfather No Known Problems Daughter No Known Problems Daughter No Known Problems Daughter other (Other) Other paternal cousin at age 50 of [place] ALLERGIES: ALLERGIES Allergen Reactions Latex Rash Adhesive [...] mg by mouth two times a day. 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 Give 1 tablet by mouth every 24 hours for give with 15mg =75mg total thyroid (AGRICULTURAL SCIENCES PROFESSOR THYROID) 15 mg tablet Take 1 tablet [...] with Atrial Fibrillation and AFL * AT/AF [place]: 2% * On Eliquis. Non-sustained Ventricular Tachycardia [...] maximal dimension of 4.3 cm. - Percutaneous yulk-fe-nqrd repair of the mitral valve with 1 [...] 10:33 PM This note was generated using Nujira voice recognition system. Please excuse any typographical errors. documented in this encounter [facility] 08-19-2024 Note [facility] 08-18-2024 Telephone encounter Note August 18, 2024 Name: José Miguel Antonio Patient Contact Number: [phone] (home) [phone] (cell) Date of last office visit: 01/10/2024 Reason For Call: Other Issue: New order is needed for the patient to return to Cardiac Rehab at [facility]. The patient needs a new referral / order as he has stopped and started and had some hospitalizations in between. The patient is coming for visit with Dr. Fernandes on 08/19/24. A new order can be faxed to [phone]. Physician: Paulina Fernandes MD Patient was informed that non-urgent calls may be returned within the next three business days. Yes Hillary Maria [facility] 08-18-2024 Miscellaneous Notes August 18, 2024 Name: José Miguel Hudsonchance Sorto Patient Contact Number: [phone] (home) [phone] (cell) Date of last office visit: 01/10/2024 Reason For Call: Other Issue: New order is needed for the patient to return to Cardiac Rehab at [facility]. The patient needs a new referral / order as he has stopped and started and had some hospitalizations in between. The patient is coming for visit with Dr. Fernandes on 08/19/24. A new order can be faxed to [phone]. Physician: Paulina Fernandes MD Patient was informed that non-urgent calls may be returned within the next three business days. Yes Hillary Maria documented in this encounter [facility] 08-17-2024 Telephone encounter Note Contacted the patient. He is currently taking torsemide. She believes his abdomen is swollen. His weight is the same. He is not having SOB. Instructed her to take the patient to the ED if he is having worsening symptoms. Instructed her to contact Dr. Fernandes's office. Transferred her to Dr. Fernandes's office. Ema Rankin RN [facility] 08-17-2024 Miscellaneous Notes Contacted the patient. [...] RN August 17, 2024 Patient Contact Number: [phone] (home) [phone] (cell) Patient last seen within the last year: Yes Reason For Call: Follow-up Questions: Patient's daughter Charu called stated the patient is retaining water and she would like to know if this is something that can be addressed at the visit or should she count Dr. Fernandes's office? Please advise [phone] Thank you Adm Galilea Senior Designer/Art Director documented in this encounter [facility] 08-17-2024 Telephone encounter Note August 17, 2024 Patient Contact Number: [phone] (home) [phone] (cell) Patient last seen within the last year: Yes Reason For Call: Follow-up Questions: Patient's daughter Charu called stated the patient is retaining water and she would like to know if this is something that can be addressed at the visit or should she count Dr. Fernandes's office? Please advise [phone] Thank you Adm Galilea Senior Designer/Art Director [facility] 08-14-2024 Telephone encounter Note Images from the original note were not included. Carmela Fernandes MD Alfonsi, Dominique; [facility] J3-4 Opd Nurses; Rubén Bucio MD; [...] Lo RN August 14, 2024 5:06 PM [facility] 08-14-2024 Miscellaneous Notes Images from [...] to 5. Please assist. Thank you, Pablito Manville documented in this encounter [facility] 08-14-2024 Telephone encounter Note Patient advised he is having blood in his stool and is worried his Eliquis is causing this because his dosage was uppsed from 2.5 to 5. Please assist. Thank you, Pablito Client Resolution Specialist [facility] 08-14-2024 Telephone encounter Note OPENED IN ERROR [facility] 08-14-2024 Miscellaneous Notes OPENED IN ERROR documented in this encounter [facility] 08-03-2024 Telephone encounter Note Returned phone call from Charu and informed her we do not have the results of his 48 Hour holter at this time. I will discuss with out holter department to see if they received the monitor. Kinga Guy RN [facility] 08-03-2024 Miscellaneous Notes Returned phone call from Charu and informed her we do not have the results of his 48 Hour holter at this time. I will discuss with out holter department to see if they received the monitor. Kinga Guy RN August 03, 2024 Patient Contact Number: [phone] (home) [phone] (cell) Patient last seen within the last year: Yes Reason For Call: Test Results Patient's daughter Charu called requesting to review the results of the patient's monitor. Please advise Charu can be reached [phone] Thank you Adm Galilea Senior Designer/Art Director documented in this encounter [facility] 08-03-2024 Telephone encounter Note August 03, 2024 Patient Contact Number: [phone] (home) [phone] (cell) Patient last seen within the last year: Yes Reason For Call: Test Results Patient's daughter Charu called requesting to review the results of the patient's monitor. Please advise Charu can be reached [phone] Thank you Adm Galilea Senior Designer/Art Director [facility] 07-30-2024 Telephone encounter Note 1. [...] Pt instructed to contact 24-hour nurse hotline [phone] for any questions or concerns. Pt verbalized understanding. PD nurse confirmed/verified patient's and full name. All clear, closing statement given. Cullen Calvert RN [facility] 07-30-2024 Miscellaneous Notes 1. Have [...] Pt instructed to contact 24-hour nurse hotline [phone] for any questions or concerns. Pt verbalized understanding. PD nurse confirmed/verified patient's and full name. All clear, closing statement given. Cullen Calvert RN documented in this encounter [facility] 07-27-2024 Note [facility] 07-27-2024 History of Present illness Narrative HOLTER MONITOR APPLICATION Patient Name: José Miguel Antonio Jr. Clinic Number: [id number] Chest is cleansed with alcohol Skin prep [...] or 48 hours 6.) Call with problems [phone] Patient expresses good verbal understanding of instructions TECHNOLOGIST Meghan documented in this encounter [facility] 07-26-2024 Note [facility] 07-26-2024 Note [facility] 07-25-2024 Note [facility] 07-24-2024 Note [facility] 07-24-2024 Note [facility] 07-23-2024 Note [facility] 07-23-2024 Note [facility] 07-22-2024 Note [facility] 07-22-2024 Note [facility] 07-21-2024 Telephone encounter Note Called patient to inform him to go to [facility] ER for elevated troponin levels per Dr. Fernandes. Patient verbalized understanding and was being dropped off at [facility] ER by daughter. Mary Bourgeois RN July 21, 2024 2:09 PM [facility] 07-21-2024 Miscellaneous Notes Called patient to inform him to go to [facility] ER for elevated troponin levels per Dr. Fernandes. Patient verbalized understanding and was being dropped off at [facility] ER by daughter. Mary Bourgeois RN July 21, 2024 2:09 PM documented in this encounter [facility] 06-02-2024 Telephone encounter Note deferred Patient's name appears on the PRO [place] Report for a PHQ-9 score of 16. Patient completed this questionnaire prior to his appointment with Cardiology. Oncology SW assessment deferred. MARIAM Ryder [facility] 06-02-2024 Miscellaneous Notes deferred Patient's name appears on the PRO [place] Report for a PHQ-9 score of 16. Patient completed this questionnaire prior to his appointment with Cardiology. Oncology SW assessment deferred. MARIAM Ryder documented in this encounter [facility] 06-02-2024 Telephone encounter Note Patient seen by Dr. Fernandes VV 06/01/2024. Irlanda Lo RN June 02, 2024 8:54 AM [facility] 06-02-2024 Miscellaneous Notes Patient seen by [...] Attempted to call [facility] [phone] but unable to reach nurse. left with office number [phone]. Irlanda Lo RN May 22, 2024 2:48 PM Karly from [facility] ([address]) is calling because patient wants to know if he should continue or stop farxiga. He is also wondering about spironolactone 12.5mg but his bp is low. These were his discharge orders from his recent hospital stay. Nurse and patient wanting clarity L/S:03/31/24 Karly # [phone] documented in this encounter [facility] 06-01-2024 Note [facility] 06-01-2024 History of Present illness Narrative Answers [...] No Headaches: No Heart, Vascular [facility] Thoracic [place] Department of Cardiovascular Medicine VIRTUAL VIDEO VISIT [...] visit. Either the patient or their legal distribution sales representative has been informed of the [...] cardiac history and that he follows with [facility] Cardiology, he was admitted to the [...] and tolerated it. He was transferred to [facility] at request of his family as [...] combined systolic and diastolic congestive heart failure ([facility]) 09/03/2022 Dyslipidemia Gastrointestinal hemorrhage 05/11/2024 GERD (gastroesophageal reflux disease) Heart failure, acute systolic ([facility]) Hypertension Hypothyroid Myocardial infarct, old Occlusion and stenosis of carotid artery without mention of cerebral infarction Prostate cancer ([facility]) 2020 PVD (peripheral vascular disease) ([facility]) 11/17/2012 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 Systolic heart failure ([facility]) Thyroid disorder 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 kidney disease, unspecified CKD stage, unspecified whether correction insulin use ([facility]) 04/26/2023 Ventricular tachycardia ([facility]) 04/28/2012 PAST SURGICAL HISTORY Procedure [...] Artery Disease Father Heart Attack Father fatal [place] at age 77 Ischemic Heart Disease Brother CABGx6 first at age 72 No Known Problems Maternal Grandmother No Known Problems Maternal Grandfather No Known Problems Paternal Grandmother No Known Problems Paternal Grandfather No Known Problems Daughter No Known Problems Daughter No Known Problems Daughter other (Other) Other paternal cousin at age 50 of [place] Social History Tobacco Use Smoking status: Former [...] Take 1 tablet by mouth once daily. 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 Per discharge summary: DISCONTINUED MEDICATIONS: -Farxiga (MYLSE) -Spironolactone (renal insufficiency) BP 110/65 Low a couple of times here, low-mid 90s and some of his medications were held. Per patient, he was given the okay to restart on farxiga and spironolactone by Dr. Fernandes. Attempted to call [facility] [phone] but unable to reach nurse. left with office number [phone]. Irlanda Lo RN May 22, 2024 2:48 PM [facility] 05-20-2024 Telephone encounter Note Karly from [facility] ([address]) is calling because patient wants to know if he should continue or stop farxiga. He is also wondering about spironolactone 12.5mg but his bp is low. These were his discharge orders from his recent hospital stay. Nurse and patient wanting clarity L/S:03/31/24 Karly # [phone] [facility] 05-15-2024 Note [facility] 05-15-2024 Note [facility] 05-14-2024 Note [facility] 05-13-2024 Note [facility] 05-12-2024 Note [facility] 05-12-2024 Note [facility] 05-12-2024 Note [facility] 05-11-2024 Note [facility] 05-11-2024 Note [facility] 05-10-2024 Note [facility] 05-09-2024 Note HNO ID: [id number] Author: PETE PRATT, RN Service: Care Management Author Type: Registered Nurse Type: Care Mgt Progress Note Filed: 05/09/2024 09:24 Note Text: CARE MANAGEMENT PROGRESS NOTE SERVICE DATE: 05/09/2024 SERVICE TIME: 9:24 AM LOS: 3 days Patient to be transferred to [facility] at 1pm via MMT. Informed accepting SNF [facility] of transfer. SIGNATURE: Pete Pratt RN PATIENT NAME: José Miguel Antonio Jr. DATE: May 09, 2024 TIME: 9:23 AM PAGER/CONTACT #: [phone] [facility] 05-09-2024 Note HNO ID: [id number] Author: CARINA PARISI APRN.RUBBER COMPOUNDER FORMULATOR Service: Hospital Medicine Author Type: Nurse Practitioner [...] GI consult -Cont to monitor Carina Parisi APRN.RUBBER COMPOUNDER FORMULATOR May 09, 2024 2:00 AM [facility] 05-08-[address] Fernandes called the daughter. Fuentes Springer RN May 08, 2024 5:15 PM [facility] 05-08-[address] Fernandes called [...] included. Paulina Fernandes MD You2 days ago CORNEL Moncada I meant Xarelto not eliquis! Paulina Fernandes MD You2 days ago CORNEL Zheng, Please have them reach out to [...] is too tired. Please call her at [phone] Charu. Thank you, Sandeep documented in this encounter [facility] 05-08-2024 Note HNO ID: [id number] Author: JAMIE HEREDIA MD Service: Hospital Medicine Author Type: Physician Type: Progress Notes Filed: 05/08/2024 21:02 Note Text: DEPARTMENT OF HOSPITAL MEDICINE PROGRESS NOTE SERVICE DATE: 05/08/2024 SERVICE TIME: 6:01 PM Hospital Medicine/Primary Attending: Jamie Heredia MD NIGHT AND WEEKEND COVERAGE: GINA COVERAGE: Days: , please contact via [employer] Nights: - floor: please page CC Hospitalist night cover [phone] - 4W: please page CC Hospitalist night cover #[phone] - 5th floor: please page CC Hospitalist night cover #[phone] - SDU (17:00 - 19:00): Please page #[phone] - SDU (19:00 - 07:00): Please call [facility] at [phone] Subjective INTERVAL HPI: Patient was seen and [...] L CEA was done by Neuro-IR at [facility] Virtual follow up by Neurology on 03/18--> was told to keep ASA at 325 mg daily Telephone communication with neurology--> dc plavix and restarted xarelto in April 01 along with asa 325 mg Since March, noted steady drop in hgb as well as iron PCP in [place] started patient on IV iron infusions Was [...] and Airways Line Duration Peripheral 05/06/24 1706 [facility] Short Right Antecubital 20 Gauge 2 [...] 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 [facility] 05-08-2024 Note HNO ID: [id number] Author: PAULETTE ARMENDARIZ LISW Service: Care Management Author Type: Fingernail Sculptor Type: Care Mgt Progress Note Filed: 05/08/2024 13:53 Note Text: CARE MANAGEMENT PROGRESS NOTE SERVICE DATE: 05/08/2024 SERVICE TIME: 1344 LOS: 2 days Needs Prior to Discharge: Patient/Family [facility]. [facility] does not have beds. Met with pt to discuss further. Pt states he was seen by GI today and is trying to decide if he wants to pursue with EGD and colonoscopy on Saturday per their recommendations. He was pleased to learn [facility] will accept but states he will put a call out to [facility] to talk about bed availability. 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 After he talks with [facility] he will make final decision. As he [...] 08, 2024 TIME: 1:44 PM PAGER/CONTACT #: [phone] [facility] 05-08-2024 Note HNO ID: [id number] Author: JESUSITA MELO CT Service: Radiology Author [...] PATIENT PRESENTS WITH AN IMPLANTABLE OR ATTACHED INSTALLER APPRENTICE: No RADIOLOGY DEPARTMENT: CT; Exam(s) Completed: Abdomen/Pelvis PERIPHERAL IV DATA: Not applicable SIGNED BY: KASSI RITCHIE May 08, 2024 1:33 PM [facility] 05-08-2024 Telephone encounter Note Called Charu and relayed message from Dr. Fernandes. While on the phone, daughter stated patient is in the hospital now and the physicians are planning an EGD and colonoscopy and daughter wants to proceed but would like Dr. Fernandes to comment on the plan. Fuentes Springer RN May 08, 2024 12:11 PM [facility] 05-08-2024 Telephone encounter Note Images from the original note were not included. Paulina Fernandes MD You2 days ago CORNEL Moncada I meant Xarelto not eliquis! Paulina Fernandes MD You2 days ago CORNEL Zheng, Please have them reach out to neurology regarding the aspirin 325. The eliquis should be continued. They were on ASA 325 post carotid stenting. I'm curious if that can be stopped but should be discussed with neurology team. Thanks, - Andreas [facility] 05-07-2024 Note HNO ID: [id number] Author: PAULETTE ARMENDARIZ LISW Service: Care Management Author Type: Fingernail Sculptor Type: Care Mgt Initial Assessment Filed: 05/07/2024 16:16 Note Text: CARE MANAGEMENT: ASSESSMENT AND DISCHARGE PLAN SERVICE DATE: May 07, 2024 SERVICE TIME: 1400 PCP: Samm Thompson MD Primary Contact: Extended Emergency Contact Information Primary Emergency Contact: Charu Cain Mobile Relation: Daughter Secondary Emergency Contact: [place] [address] [facility] Relation: Daughter Admission Status: Inpatient Insurance Provider: MEDICARE A AND B Discharge Planning requested by: Per Department Practice Potential Transition Plans Snf Facility/Intermediate Care Facility;To Be Determined Advance Directives Current Advance Directive: None Revenue Director Attempted to Assist with AD Completion: Yes [...] Goal(s): General wellness, Ambulate a little better [place] [facility] [place] Explained: [place] Given: Yes Level of Care Discussed: Snf Facility Are you interested in bedside delivery of your medications? No Discharge Planning Participant(s): Patient Patient/Family Comments: Carlos Manuel Pretty in room, and other dtr's Zack [phone] on speaker phone Caregiver Assessment: Caregiver is [...] He has no intention of moving into shelter. Dtr's are trying to get him to consider moving to a trailer park and gettting rid of his cats. Pt is not interested in resources for hoarding at this time. Referrals sent in order to [facility]. 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 Does NOT want [facility] where his brother is staying. SW/NATALIA to follow. SIGNATURE: RINA Guerrero PATIENT NAME: José Miguel Antonio Jr. DATE: May 07, 2024 TIME: 4:07 PM CONTACT #: [phone] [facility] 05-07-2024 Note HNO ID: [id number] Author: JAMIE HEREDIA MD Service: Hospital Medicine Author Type: Physician Type: Progress Notes Filed: 05/08/2024 05:31 Note Text: DEPARTMENT OF HOSPITAL MEDICINE PROGRESS NOTE SERVICE DATE: 05/07/2024 SERVICE TIME: 10:23 AM Hospital Medicine/Primary Attending: Jamie Heredia MD NIGHT AND WEEKEND COVERAGE: SALINA COVERAGE: Days: [phone], please contact via [employer] Nights: - floor: please page Hospitalist night cover [phone] - 4W: please page CC Hospitalist night cover #[phone] - 5th floor: please page CC Hospitalist night cover #[phone] - SDU (17:00 - 19:00): Please page #[phone] - SDU (19:00 - 07:00): Please call [facility] at [phone] Subjective INTERVAL HPI: Patient was seen and [...] L CEA was done by Neuro-IR at [facility] Virtual follow up by Neurology on 03/18--> was told to keep ASA at 325 mg daily Telephone communication with neurology--> dc plavix and restarted xarelto in April 01 along with asa 325 mg Since March, noted steady drop in hgb as well as iron PCP in [place] started patient on IV iron infusions Was [...] and Airways Line Duration Peripheral 05/06/24 1706 [facility] Short Right Antecubital 20 Gauge <1 [...] artery disease involving coronary bypass graft of ekuk heart without angina pectoris Systolic heart failure (HCC) S/P CABG (coronary artery bypass graft) 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 kidney disease, unspecified CKD stage, unspecified whether watermelon inspector insulin use (HCC) Stage 3b chronic kidney [...] for severe MR (more content not included)... [facility] 05-06-2024 Note HNO ID: [id number] Author: JORGE ENCISO RT(R) Service: ? Author [...] PATIENT PRESENTS WITH AN IMPLANTABLE OR ATTACHED INSTALLER APPRENTICE: No RADIOLOGY DEPARTMENT: General X-ray: Exam(s) Completed: Chest X-Ray PERIPHERAL IV DATA: Not applicable SIGNED BY: RT Lisbet(R) May 06, 2024 5:01 PM [facility] 05-06-2024 Telephone encounter Note Patients daughter thinks he is on too many blood thinners, sob, doesn't go to cardiac rehab because he is too tired. Please call her at [phone] Charu. Thank you, Sandeep [facility] Work Phone: 04-30-2024 Note [facility] 04-30-2024 History of Present illness Narrative Summary: KCCQ-12 AMB TVT FOLLOWUP: Follow Up Type: Phone Call Call Attempt: Final Attempt Call Status: Patient Refused Patient answered call back and now states refusal. documented in this encounter [facility] 04-29-2024 Note [facility] 04-29-2024 History of Present illness Narrative Summary: KCCQ-12 AMB TVT FOLLOWUP: Follow Up Type: Phone Call Call Attempt: 1st Attempt Call Status: Left Message and Asked to be called back Patient returned call but asked for a call back tomorrow documented in this encounter [facility] 04-06-2024 Instructions Yung Andrade MD - 04/06/2024 3:28 PM EDT Advance Directives Every adult has the right to direct their own medical care. Having an advance directive on file helps to ensure that you receive the care you want if a medical condition or injury renders you unable to make decisions or communicate. Forms can be found on the [facility] Advance Directives site. You do not need a geotechnical department manager to complete advance directive documents. [email or web address] [email or web address] Talking about end-of-life issues is difficult, but it truly is a gift to your loved ones. We suggest using The Conversation Project (theHello Universeationproject.org) to help guide you through discussing and [...] JPEG format. You can also mail to: [facility] Health Information Management, [employer] Advance Directive Processing [address] [place], [place] [address] documented in this encounter [facility] 04-06-2024 Telephone encounter Note Call to daughter EC Charu, no answer, LVM with return number. Tiffany Lam RN April 06, 2024 11:25 AM [facility] 04-06-2024 Miscellaneous Notes Call to daughter EC Charu, no answer, LVM with return number. Tiffany Lam RN April 06, 2024 11:25 AM Name of Caller: Charu Cain Relationship to patient: patient's daughter Reason for Call: Patient Daughter is calling just looking for clarification and new mediation instruction. Please reach out when available. Callback number: [phone] Janice Timmons documented in this encounter [facility] 04-03-2024 Telephone encounter Note Name of Caller: Charu Cain Relationship to patient: patient's daughter Reason for Call: Patient Daughter is calling just looking for clarification and new mediation instruction. Please reach out when available. Callback number: [phone] Janice Timmons [facility] 04-02-2024 Instructions Paulina Fernandes MD - 04/02/2024 10:23 AM EDT -Follow-up blood work 04/03 documented in this encounter [facility] 04-01-2024 Telephone encounter Note Unable To Reach Patient Patient appears on the PRO [place] Report for a PHQ-9 score of 11. Questionnaire was completed on 03/31. SW called and left a VM encouraging this Patient to kelsey back if additional support was desired. SW will remain available and will follow up as appropriate. MARIAM Ryder [facility] 04-01-2024 Miscellaneous Notes Unable To Reach Patient Patient appears on the PRO [place] Report for a PHQ-9 score of 11. Questionnaire was completed on 03/31. SW called and left a VM encouraging this Patient to kelsey back if additional support was desired. SW will remain available and will follow up as appropriate. MARIAM Ryder documented in this encounter [facility] 03-31-2024 Note [facility] 03-31-2024 History of Present illness Narrative Answers [...] Muscle aches: No Heart, Vascular & Thoracic [place] Department of Cardiovascular Medicine VIRTUAL VIDEO VISIT ESTABLISHED OUTPATIENT VISIT SERVICE DATE: 03/31/2024 Patient: José Miguel Antonio SERVICE TIME: 3:55 PM : 1940 This is a virtual video visit. It required patient-provider interaction for the medical decision making as documented below. José Miguel Antonio Jr. has consented to this video encounter. I have communicated my name and active licensure. The patient's identity and physical location were verified at the time of this visit. Either the patient or their legal distribution sales representative has been informed of the 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 Systolic heart failure ([facility]) Thyroid disorder 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 kidney disease, unspecified CKD stage, unspecified whether correction insulin use ([facility]) 04/26/2023 Ventricular tachycardia ([facility]) 04/28/2012 PAST SURGICAL HISTORY Procedure [...] Artery Disease Father Heart Attack Father fatal [place] at age 77 Ischemic Heart Disease Brother CABGx6 first at age 72 No Known Problems Maternal Grandmother No Known Problems Maternal Grandfather No Known Problems Paternal Grandmother No Known Problems Paternal Grandfather No Known Problems Daughter No Known Problems Daughter No Known Problems Daughter other (Other) Other paternal cousin at age 50 of [place] Social History Tobacco Use Smoking status: Former [...] directed. 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 PATIENT DIAGNOSIS: Prostate adenocarcinoma, initial PSA 8.14, biopsy Ivory [...] directed. 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 THYROID 15 mg tablet Take 15 mg [...] ASSESSMENT/PLAN: Prostate adenocarcinoma, initial PSA 8.14, biopsy [place] score 3 + 4 = 7 (grade [...] Yung Andrade MD cc: Samm Thompson MD [address] [place] [address] documented in this encounter [facility] 03-31-2024 Note [facility] 03-31-2024 Nurse Note AUA= 5 [facility] 03-31-2024 Nurse Note AUA= 5 documented in this encounter [facility] 03-30-2024 Telephone encounter Note March 30, 2024 Patient Contact Number: [phone] Patient last seen within the last year: Yes Date of last office visit: 03/30/2024 Reason For Call: PT requested Patient Enrollment Form be filled out for Xarelto approval. Form has been scanned and uploaded. Physician: Efren Brady MD Patient was informed that non-urgent calls may be returned within the next three business days. Yes Sandy Sales [facility] 03-30-2024 Miscellaneous Notes March 30, 2024 Patient Contact Number: [phone] Patient last seen within the last year: Yes Date of last office visit: 03/30/2024 Reason For Call: PT requested Patient Enrollment Form be filled out for Xarelto approval. Form has been scanned and uploaded. Physician: Efren Brady MD Patient was informed that non-urgent calls may be returned within the next three business days. Yes Sandy Sales documented in this encounter [facility] 03-30-2024 History of Present illness Narrative Heart and Vascular [place] Jose Martin Silva Department of Cardiovascular Medicine [...] cancer (HCC) 2020 PVD (peripheral vascular disease) ([facility]) 11/17/2012 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 Systolic heart failure (HCC) Thyroid disorder 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 kidney disease, unspecified CKD stage, unspecified whether watermelon inspector insulin use ([facility]) 04/26/2023 Ventricular tachycardia ([facility]) 04/28/2012 Surgical History: PAST SURGICAL HISTORY [...] Artery Disease Father Heart Attack Father fatal [place] at age 77 Ischemic Heart Disease Brother CABGx6 first at age 72 No Known Problems Maternal Grandmother No Known Problems Maternal Grandfather No Known Problems Paternal Grandmother No Known Problems Paternal Grandfather No Known Problems Daughter No Known Problems Daughter No Known Problems Daughter other (Other) Other paternal cousin at age 50 of [place] Social History: Social History Tobacco Use Smoking [...] (NITROQUICK) 0.4 mg SL tablet as directed. 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 He follows with a commercial real estate sales manager locally but would prefer to have one. I have placed a referral. Efren Brady MD, [facility] special projects coordinator, [facility] of [facility] Staff, Section of Cardiovascular Imaging Department of Cardiovascular Medicine [facility] ADDENDUM: Echo reviewed. There is new echodensity in the posterior LV suspicious for LV thrombus. Discussed findings with patient and daughter. He will be starting Xarelto tomorrow as per neurosx recommendations. He knows that he needs a repeat echo in a month or two. He prefers to do it locally and will share the results with us Efren Brady MD, [facility] Staff, Section of Cardiovascular Imaging Department of Cardiovascular Medicine [facility] documented in this encounter [facility] 03-30-2024 Note [facility] 03-18-2024 History of Present illness Narrative Images from the original note were not included. [facility] Virtual Visit Consultation is requested by: No referring provider defined for this encounter. PCP: Samm Thompson [address] [place] [address] CEREBROVASCULAR HISTORY José Miguel Antonio Jr. is [...] COPD, former smoker, who presented to the [facility] ED on 02/26/24 with acute flashing lights in the left eye followed by complete blindness for 2-3 minutes that spontaneously resolved. Imaging at [facility] included CTH showing Probable right parietal low-attenuation within the deep white matter extending to the cortex. I favor a subacute or chronic infarct. This represents change from prior study. CTA H/N showed, severe hemodynamically significant stenosis of the left internal carotid artery origin similar prior examination with estimated stenosis of 99% . Patient subsequently transferred to [facility] under Stroke Neurology for further workup and management of suspected symptomatic L ICA with critical stenosis. Upon arrival to [facility] RNF, patient was HDS and NIH [...] visit. Either the patient or their legal distribution sales representative has been informed of the risks and benefits of -- and alternatives to -- treatment through a remote evaluation and consents to proceed with the evaluation remotely. 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 ([facility]) 09/03/2022 Dyslipidemia GERD (gastroesophageal reflux disease) Heart failure, acute systolic ([facility]) Hypertension Hypothyroid Myocardial infarct, old Occlusion and stenosis of carotid artery without mention of cerebral infarction Prostate cancer ([facility]) 2020 PVD (peripheral vascular disease) ([facility]) 11/17/2012 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 Systolic heart failure ([facility]) Thyroid disorder 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 kidney disease, unspecified CKD stage, unspecified whether correction insulin use ([facility]) 04/26/2023 Ventricular tachycardia ([facility]) 04/28/2012 PAST SURGICAL HISTORY Procedure [...] Artery Disease Father Heart Attack Father fatal [place] at age 77 Ischemic Heart Disease Brother CABGx6 first at age 72 No Known Problems Maternal Grandmother No Known Problems Maternal Grandfather No Known Problems Paternal Grandmother No Known Problems Paternal Grandfather No Known Problems Daughter No Known Problems Daughter No Known Problems Daughter other (Other) Other paternal cousin at age 50 of [place] Social History Tobacco Use Smoking status: Former [...] (NITROQUICK) 0.4 mg SL tablet as directed. 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 Coordination: Rapid alternating movements symmetric bilaterally. Neyunq-fu-yyls, ndql-ld-fdit without dysmetria bilaterally. Reflexes: 2+/4 reflexes symmetric [...] coordination (not separately reported) SIGNATURE Luís Skinner APRN.RUBBER COMPOUNDER FORMULATOR CC No referring provider defined for this encounter. Samm Thompson [address] [place] [address] documented in this encounter [facility] 03-18-2024 Note [facility] 03-06-2024 Note [facility] 03-06-2024 History of Present illness Narrative [facility] Cake Knocker Transitional Care Management Phone Call A transitional [...] Dept Phone 03/11/2024 11:20 AM CHARU KINCAID [facility] [phone] 03/18/2024 2:05 PM LUÍS SKINNER [place] [facility] [phone] 03/24/2024 1:00 PM LAB [facility] [phone] 03/30/2024 1:30 PM EKGJ1-4 MAIN Manolo Collins [facility] [phone] 03/30/2024 2:00 PM IMAGING CLINICIAN Manolo Del Valle [phone] 03/30/2024 2:30 PM EFREN BRADY Bldg [phone] 03/30/2024 3:30 PM ECHO J1-5 CARD MAIN Manolo Mart [phone] 03/31/2024 1:15 PM Yung ANDRADE [facility] [phone] 03/31/2024 1:30 PM [facility] [phone] Reviewed and patient plans on attending appointment. [...] of the call. Ema Lyn RN Nurse Cake Knocker, C[facility]brovascular Center March 06, 2024 11:58 AM documented in this encounter [facility] 03-05-2024 Note [facility] 03-05-2024 Note [facility] 03-04-2024 Note [facility] 03-04-2024 Note [facility] 03-04-2024 Note [facility] 03-04-2024 Note [facility] 03-04-2024 Note [facility] 03-04-2024 Note [facility] 03-03-2024 Note [facility] 03-03-2024 Note HNO ID: [id number] Author: TREVOR MENDOSA RN Service: Nursing Author Type: Registered Nurse Type: Nursing Progress Note Filed: 03/03/2024 06:45 Note Text: [id number]: CMU alert for pt having 11 beats of V.Tach. NSGY BEV Katz notified [facility] 03-02-2024 Note Date of Procedure 03/02/2024. Migratory Farm Hand Information Animal Humane Agent Supervisor: GABI. Start time: 2:50 PM. Stop time: 2:57 PM. Patient is ok with testing with one more person Patient is not allergic to adhesive. Reliability Right Eye Good. Left Eye Good. Notes Inf defect OU does not follow midline ZEISS 03-02-2024 History of Present illness Narrative SDA; inpt consult Cerebrovascular acci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) PMH ocular migraines, ischemic stroke '21 (no deficit), asymptomatic R carotid stenosis (s/p R CEA '12), HTN, CAD/AK s/p CABG, HFrEF (LVEF 28% 02/19/24), severe [...] minutes and self-resolved. He presented to OSH ([place], [place]). CTH negative for acute findings, but CTA demonstrated high grade MELIA stenosis. He was initiated on heparin infusion and transferred to [facility] for further care. US carotid on admission demonstrates MELIA stenosis 70-99%. Patient also had + TCD emboli monitoring (5MEEs) in [facility]. - VISUAL FIELD 24-2 OU (BOTH EYES): [...] Susi Whitehead OD documented in this encounter [facility] 02-28-2024 Telephone encounter Note Called patients daughter. Unable to provide timing on a bed, but provided therapeutic communication. Charu has no further questions at this time. Consuelo Gambino RN [facility] 02-28-2024 Miscellaneous Notes Called patients daughter. [...] and Date of . ( José Miguel Hudsonchance Sorto, 1940). Yes Number to return call [phone] Reason for Call: Patient Question/Update: Patient's daughter would like to know the status of her dad preadmission details. Daughter states patient has been waiting since February 26. Please call her at the above number. Thank you calling [facility]. You will receive a return call within 48 hours ( or 2 business days if close to the weekend). If you feel that this is an urgent issue and needs immediate attention, it is recommended that you contact your primary care provider office or proceed to your nearest Urgent Care Center of Emergency Room ED for evaluation/treatment. documented in this encounter [facility] 02-28-2024 Telephone encounter Note CV PHONE Name of caller : Charu Relationship to patient : Daughter If not self Will need patient permission to release results or disclose health information with called documented in fyi. Patient identified by Name and Date of . ( José Miguel Hudsonchance Sorto, 1940). Yes Number to return call [phone] Reason for Call: Patient Question/Update: Patient's daughter would like to know the status of her dad preadmission details. Daughter states patient has been waiting since February 26. Please call her at the above number. Thank you calling [facility]. You will receive a return call within 48 hours ( or 2 business days if close to the weekend). If you feel that this is an urgent issue and needs immediate attention, it is recommended that you contact your primary care provider office or proceed to your nearest Urgent Care Center of Emergency Room ED for evaluation/treatment. [facility] Work Phone: 02-27-2024 Telephone encounter Note Patient's daughter phoned. She stated that her father called earlier in the evening with stroke -like symptoms- loss of vision in one eye that returned, squiggley lines . He was taken to the ED and is in the observation unit. She would like him to be transferred to [facility] - told her to ask for a transfer. Shannon Mcnair APRN.DOROTHY [facility] Work Phone: 02-27-2024 Miscellaneous Notes Patient's daughter phoned. She stated that her father called earlier in the evening with stroke -like symptoms- loss of vision in one eye that returned, squiggley lines . He was taken to the ED and is in the observation unit. She would like him to be transferred to [facility] - told her to ask for a transfer. Shannon Mcnair APRN.RUBBER COMPOUNDER FORMULATOR documented in this encounter [facility] 02-27-2024 History of Present illness Narrative Vanesa Lozada Plan of Care Received a transfer request from [facility] in [facility] (not located in [facility]). Spoke to ED physician Dr. Guido [...] COPD, former smoker, who presents to the [facility] ED with acute flashing lights in [...] do not have timing on beds at [facility] and he may be a CEA candidate. [...] hypoperfusion. Plan: - Level 1 transfer to [facility]. Asked the OSH to [...] can be finalized once patient arrives to [facility] Aravind Arriaga MD Vascular Neurology Fellow, PGY-5 Supervising stroke staff: Dr. Millard documented in this encounter [facility] 02-17-2024 History of Present illness Narrative Images from the original note were not included. [facility] CHIEF COMPLAINT: Dental clearance HISTORY OF PRESENT ILLNESS: José Miguel Antonio is a 83 year old male being seen for dental consultation at the request of Dr. Mattie Castañeda prior to open-heart surgery. The patient's last dental visit was over ten years ago. He plans to establish care with a dentist following [facility]. Pain:He denies odontalgia today. PROBLEM LIST: ACTIVE PROBLEM LIST Atherosclerotic Heart Disease of [place] Coronary Artery With Other Forms of Angina Pectoris ([facility]) SUMMARY Hyperlipidemia Preop Testing Heart Failure, Acute Systolic ([facility]) Carotid Stenosis Atrial Fib/Flutter, Transient Occlusion and Stenosis of Carotid Artery Without Mention of Cerebral Infarction S/P Cabg (Coronary Artery Bypass Graft) Sweating Coronary Artery Disease Involving Coronary Bypass Graft of [place] Heart Without Angina Pectoris Systolic Heart Failure ([facility]) Pvd (Peripheral Vascular Disease) ([facility]) Syncope Stroke (Cerebrum) ([facility]) Acute On Chronic Combined Systolic and Diastolic Congestive Heart Failure ([facility]) Carotid Stenosis, Asymptomatic, Bilateral Type 2 Diabetes Mellitus With Diabetic Chronic Kidney Disease, Unspecified Ckd Stage, Unspecified Whether Snf Insulin Use ([facility]) Malnutrition of Moderate Degree ([facility]) Stage 3b Chronic Kidney Disease ([facility]) Dyspnea, Unspecified Non-Rheumatic Mitral Regurgitation [...] (NITROQUICK) 0.4 mg SL tablet as directed. 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 aspirin, [...] Soft Tissues: Clear saliva extruded from bilateral [place]'s and Sari's ducts. Tongue soft and non-tender [...] be done with local anesthesia.(Confirmed) Please call [phone] to schedule for tooth extractions once patient [...] Dior Nj DDS documented in this encounter [facility] 02-14-2024 History of Present illness Narrative Study name: EMPOWER Trial IRB# [id number] PI: Andrés Savage Pt exited from trial--plan for commercial treatment. Manager Supply Chain Planning: Krystal Richey Pager #: [phone] documented in this encounter [facility] 02-14-2024 History of Present illness Narrative I spoke with José Miguel Antonio Jr. And his daughter Charu on the phone. Direct admission to the hospital 02/14 in prep for EMPERATRIZ [place] Dental clearance within last 6 months: to be completed inpatient KCCQ Survey Completed: to be done inpatient Surgeon note documented: to be completed inpatient No fasting is needed on pre-op day. Mattie Castañeda APRN.RUBBER COMPOUNDER FORMULATOR [facility]. Patient to be admitted prior on 02/14 and will remain in the house for the procedure. Please schedule José Miguel Antonio Jr., [phone] for Mitral Valve Transcatheter Ywdv-rb-Ukng Repair (M-AZAEL) w/ [place] MitraClip Procedure on: 02/18/[address] Structural lab schedule on : 02/18/24 at 10:30am CPT: 15124 Diag: I34.0 DIRECTOR OF MEDIA: Dr Brady Performing Physician: Dr rain OR: 83 1st Surgeon: NISHA MERRITT schedule- intra/op Patient also needs INSURANCE PRECERTIFICATION SURVIVAL RATE GREATER THAN 1 YEAR____yes___(LOOKING FOR A YES) EF ___20__ Thank-you. Request sent to scheduling. Mattie Castañeda APRN.CNP documented in this encounter [facility] 02-13-2024 History of Present illness Narrative Multidisciplinary [...] tricuspid MDT members has been completed by: Mattie Castañeda APRN.CNP documented in this encounter [facility] 02-12-2024 Telephone encounter Note Attempted to contact daughter Charu. Clinical has been discussed with Dr. Brady. Patient should be admitted to the hospital for optimization and reassess by ENT. Fuentes Arana APRN.CNS [facility] 02-12-2024 Miscellaneous Notes Attempted to contact stan Box. Clinical has been discussed with Dr. [...] recommendation she will have him come to [place]. Unfortunately, based upon his symptoms, worsening MR on ECHO and increasing BNP, he may require admission for optimization. In the meantime will also try to obtain a sooner ENT consult. Fuentes Arana APRN.PARDEEP Patients daughter called with concerns regarding the patient and the study that he is a part of. She would like to speak with you regarding her concerns, Daughter Charu [phone]. Clover documented in this encounter [facility] 02-12-2024 Telephone encounter Note I spoke [...] recommendation she will have him come to [place]. Unfortunately, based upon his symptoms, worsening MR on ECHO and increasing BNP, he may require admission for optimization. In the meantime will also try to obtain a sooner ENT consult. Fuentes Arana APRN.PARDEEP [facility] 02-12-2024 Telephone encounter Note Patients daughter called with concerns regarding the patient and the study that he is a part of. She would like to speak with you regarding her concerns, Daughter Charu [phone]. Clover [facility] Work Phone: 02-12-2024 History of Present illness Narrative Clinical [...] the next couple of days. Fuentes Arana APRN.UTILITY PERSON documented in this encounter [facility] 02-11-2024 Telephone encounter Note Study name: EMPOWER Trial IRB# [id number] PI: Andrés Savage Pt's gfr dropped--spoke to Dr. Fernandes. Plan for med changes with f/u labs this Saturday. Spoke with pt's daughter. Plan to pause trial enrollment as he doesn't fit with this gfr. Will reassess after labs. Also informed that clinical team is re-reviewing imaging for clips. Manager Supply Chain Planning: Krystal Richey Pager #: [phone] [facility] 02-11-2024 Miscellaneous Notes Study name: EMPOWER Trial IRB# [id number] PI: Andrés Savage Pt's gfr dropped--spoke to Dr. Fernandes. Plan for med changes with f/u labs this Saturday. Spoke with pt's daughter. Plan to pause trial enrollment as he doesn't fit with this gfr. Will reassess after labs. Also informed that clinical team is re-reviewing imaging for clips. Manager Supply Chain Planning: Krystal Richey Pager #: [phone] documented in this encounter [facility] 02-05-2024 History of Present illness Narrative Study [...] were performed per protocol by a blinded computer forensic specialist: Berta Barry NYHA completed: Yes KCCQ-12 questionnaire [...] up requirements/schedule Materials dispensed: Coordinator Contact Card Manager Supply Chain Planning: Berta Barry [phone] documented in this encounter [facility] 01-30-2024 History of Present illness Narrative Summary: 18 Empower Study Called pt's daughter Charu to give update on Empower study, and to schedule screening visit. documented in this encounter [facility] 01-14-2024 Telephone encounter Note January 14, 2024 Name: José Miguel Antonio Jr. Patient Contact Number: [phone] - daughter's cell - Charu Travisz Date of last office visit: 01/10/2024 Reason For Call: Medication Issue/Question: Patient's daughter is asking if after reviewing labs are there any medication changes? Please call daughter's phone - Charu Cain Physician: Paulina Fernandes MD Patient was informed that non-urgent calls may be returned within the next three business days. Yes Hillary Martinez [facility] 01-14-2024 Miscellaneous Notes January 14, 2024 Name: José Miguel Antonio Jr. Patient Contact Number: [phone] - daughter's cell - Charu Cain Date of last office visit: 01/10/2024 Reason For Call: Medication Issue/Question: Patient's daughter is asking if after reviewing labs are there any medication changes? Please call daughter's phone - Charu Cain Physician: Paulina Fernandes MD Patient was informed that non-urgent calls may be returned within the next three business days. Yes Hillary Martinez documented in this encounter [facility] 01-10-2024 Evaluation note Diagnosis IRB 18-600 Empower Assessment of the CARILLON Mitral Contour System in Treating Functional Mitral Regurgitation Associated with Heart Failure PI: Hussein- Primary documented in this encounter [facility]04-26-2024 History of Present illness Narrative* Kaiden Krystal F - 01/10/2024 12:32 PM EDT IRB 18-600 Empower Assessment of the CARILLON Mitral Contour System in Treating Functional Mitral Regurgitation Associated with Heart Failure PI: Hussein Study explained/reviewed with patient and 3 daughters. Study related follow-up requirements were discussed. Risks, benefits, alternatives, personnel, and costs of the study explained/reviewed. Patient provided informed consent for review previously via sourceasyex. Study related questions were addressed. Pt agreeable [...] Brady info on card. Krystal Richey RN [phone] [facility] Instructions* Patient Instructions* Paulina Fernandes MD - 01/10/2024 11:19 AM EDT -blood work today -screening for EMPOWER study -Will likely start low dose ACEi or ARB after I review your labs [facility] History of Present illness Narrative* Paulina Fernandes MD - 01/10/2024 10:15 AM EDT Images from the original note were not included. [facility] [place] [facility] SECTION OF HEART FAILURE and CARDIAC TRANSPLANT MEDICINE OUTPATIENT VISIT DATE January 10, 2024 OUTPATIENT VISIT TYPE Consultation PRIMARY CARE PHYSICIAN: Samm Thompson [facility] [place] [address] CHIEF COMPLAINT: HFrEF, ischemic CM, severe FMR NURSING INTAKE (Patient s concerns and/or recent hospitalizations/ER visits): José Miguel Antonio is a 83 year old male from [place], [place] referred by Dr. Brady for GDMT. 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 Systolic heart failure ([facility]) Thyroid disorder 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 kidney disease, unspecified CKD stage, unspecified whether watermelon inspector insulin use ([facility]) 04/26/2023 Ventricular tachycardia ([facility]) 04/28/2012 PAST SURGICAL HISTORY Procedure [...] Artery Disease Father Heart Attack Father fatal [place] at age 77 Ischemic Heart Disease Brother CABGx6 first at age 72 No Known Problems Maternal Grandmother No Known Problems Maternal Grandfather No Known Problems Paternal Grandmother No Known Problems Paternal Grandfather No Known Problems Daughter No Known Problems Daughter No Known Problems Daughter other (Other) Other paternal cousin at age 50 of [place] ALLERGIES: ALLERGIES Allergen Reactions Latex Rash Adhesive [...] (NITROQUICK) 0.4 mg SL tablet as directed. 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 aspirin, [...] non-medical management as above. Paulina Fernandes MD [facility] Section Of Heart Failure and Cardiac Transplant Medicine [facility] [place] [facility] Desk [address] [place] [address] documented in this [facility] Evaluation note* Diagnosis IRB 18-600 Empower Assessment of the CARILLON Mitral Contour System in Treating Functional Mitral Regurgitation Associated with Heart Failure PI: Hussein- Primary documented in this encounter [facility]04-18-2024 Miscellaneous Notes* Telephone Encounter - Velma [...] 02, 2024 2:58 PM documented in this [facility] History of Present illness Narrative* Krystal Richey [...] baseline images/testing if he is optimized. Krystal Richey, RN [phone] documented in this [facility] History of Present illness Narrative* [...] next week if she doesn't reach out. Manager Supply Chain Planning: Krystal Richey Pager #: [phone] documented in this [facility] History of Present illness Narrative* [...] on Saturday. Follow up appointment added. Krystal Richey, RN [phone] documented in this [facility] History of Present illness Narrative* Kristina Ceja [...] Dr. Roland, Flaca Ceja, DOROTHY, Jase Underwood, INOCENTE, Yanick Saravia RN PATIENT NAME: José Miguel [...] members has been completed by: Kristina Ceja APRN.RUBBER COMPOUNDER FORMULATOR documented in this [facility] History of Present illness Narrative* Efren Brady MD - 12/26/2023 11:15 AM EDT [facility] [place] [facility] Martin Silva Department of Cardiovascular Medicine [...] combined systolic and diastolic congestive heart failure ([facility]) 09/03/2022 Dyslipidemia GERD (gastroesophageal reflux disease) Heart failure, acute systolic ([facility]) Hypertension Hypothyroid Myocardial infarct, old Occlusion and stenosis of carotid artery without mention of cerebral infarction Prostate cancer ([facility]) 2020 PVD (peripheral vascular disease) ([facility]) 11/17/2012 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 Systolic heart failure ([facility]) Thyroid disorder 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 kidney disease, unspecified CKD stage, unspecified whether watermelon inspector insulin use ([facility]) 04/26/2023 Ventricular tachycardia ([facility]) 04/28/2012 Surgical History: PAST SURGICAL HISTORY [...] Artery Disease Father Heart Attack Father fatal [place] at age 77 Ischemic Heart Disease Brother CABGx6 first at age 72 No Known Problems Maternal Grandmother No Known Problems Maternal Grandfather No Known Problems Paternal Grandmother No Known Problems Paternal Grandfather No Known Problems Daughter No Known Problems Daughter No Known Problems Daughter other (Other) Other paternal cousin at age 50 of [place] Social History: Social History Tobacco Use Smoking [...] (NITROQUICK) 0.4 mg SL tablet as directed. 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 aspirin, [...] when available. IMPRESSION and PLAN: 83 with Has ICM s/p DC-ICD (in 2018), prior CABG (in 2011, with cath in 2021 with patent OTTO-LAD and SVG to OM, with occluded VG to PDA), prior stroke in 2020 s/p tPA (no deficits) on Eliquis, COPD (remote smoker), CKD (crea ~ 1.5- 2.0), and right CEA (2012) He was recently admitted to [place] in Sep and November with SANTILLAN - [...] with another MERRITT to guide any procedure. Erfen Brady MD, [facility] special projects coordinator, [facility] of [facility] Staff, Section of Cardiovascular Imaging Department of Cardiovascular Medicine [facility] [place] [facility] documented in this encounterSouthwest General Health Center04-10-2024 NoteKindred Healthcare04-02-2024 Miscellaneous Notes* Telephone Encounter - Sandy Sales - 12/17/2023 12:08 PM EDT December 17, 2023 Patient Contact Number: [phone] Patient last seen within the last year: Yes Date of last office visit: 12/12/2023 Reason For Call: Daughter called to verify okay for Mr. Antonio to start cardiac rehabilitation. Physician: Virgil Carrillo MD Patient was informed that non-urgent calls may be returned within the next three business days. Yes Sandy Sales documented in this encounterSouthwest General Health Center03-28-2024 Instructions* Patient Instructions* Carmelina Ramos, ANAND.RUBBER COMPOUNDER FORMULATOR - 12/12/2023 2:38 PM EDT -I will [...] 03/24/2024 1:00 PM LAB HEMRAD GAMALIEL LABSAN NM GAMALIEL 03/31/2024 1:15 PM Yung Andrade MD RADTSA NM GAMALIEL 03/31/2024 1:30 PM LAB HEMRAD GAMALIEL LABSAN NM GAMALIEL documented in this encounterSouthwest General Health Center03-28-2024 History of Present illness Narrative* Carmelina Ramos APRN.CNP - 12/12/2023 1:30 PM EDT Images from the original note were not included. [facility] [place] Jose Martin Silva Department of Cardiovascular Medicine SECTION OF CARDIOVASCULAR IMAGING OUTPATIENT VISIT DATE December 12, 2023 OUTPATIENT VISIT TYPE ESTABLISHED PRIMARY CARE PHYSICIAN: Samm Thompson [address] [place] [address] REFERRING PHYSICIAN: No referring provider defined for [...] He was admitted to the hospital in [place] on 11/18 for FVO, diuresed with IV [...] without mention of cerebral infarction Prostate cancer ([facility]) 2020 PVD (peripheral vascular disease) ([facility]) 11/17/2012 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 Systolic heart failure ([facility]) Thyroid disorder 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 kidney disease, unspecified CKD stage, unspecified whether correction insulin use ([facility]) 04/26/2023 Ventricular tachycardia ([facility]) 04/28/2012 PAST SURGICAL HISTORY Procedure [...] Artery Disease Father Heart Attack Father fatal [place] at age 77 Ischemic Heart Disease Brother CABGx6 first at age 72 No Known Problems Maternal Grandmother No Known Problems Maternal Grandfather No Known Problems Paternal Grandmother No Known Problems Paternal Grandfather No Known Problems Daughter No Known Problems Daughter No Known Problems Daughter other (Other) Other paternal cousin at age 50 of [place] ALLERGIES: ALLERGIES Allergen Reactions Latex Rash Adhesive Tape (Keyanna* Rash MEDICATIONS: furosemide (LASIX) 40 mg tablet Take 40 mg by mouth once daily. Cholecalciferol, Vitamin D3, 25 mcg (1,000 unit) cap Take 1,000 Units by mouth as needed. nitroglycerin sublingual (NITROQUICK) 0.4 mg SL tablet as directed. 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 aspirin, [...] FOR LVH, MAY BE NORMAL VARIANT ( [place] product ) NONSPECIFIC INTRAVENTRICULAR BLOCK ABNORMAL ECG Confirmed by ANAM LUTZ MD ([id number]) on 11/21/2023 10:12:55 AM NT Pro BNP [...] He was admitted to the hospital in [place] on 11/18 for FVO, diuresed with IV [...] as scheduled in December -follow-up with local commercial real estate sales manager as scheduled this month -pt has been scheduled to see Dr. Brady for evaluation for Mitraclip -advised to call Dr. Carrillo's office if increase in weight, SOB, swelling -recommendation and follow-up discussed with Mr. Antonio and his daughter, Charu Future Appointments Date Time Provider Department Center 12/26/2023 11:15 AM Efren Brady MD CARIMN Mn J Bldg 01/10/2024 10:15 AM Paulina Fernandes MD CARD CHF JENNIFER Mn J Bldg 02/18/2024 9:00 AM ECHO A17 CARD MAIN CFLAMN Manolo A Bldg 02/18/2024 11:30 AM EKGJ1-4 MAIN EKGF16 Mn J Bldg 02/18/2024 12:30 PM Virgil Carrillo MD CARIMN Mn J Bld[facility] 03/24/2024 1:00 PM LAB HEMJEANNINE ALSTON SANAM NM GAMALIEL 03/31/2024 1:15 PM Yung Andrade MD RADTSA [facility] 03/31/2024 1:30 PM LAB HEMRAD [facility] I personally interviewed, confirmed and edited the above information if obtained by others. CONTACT INFORMATION: Carmelina Ramos APRN.CNP documented in this encounterSouthwest General Health Center03-18-2024 NoteKindred Healthcare03-12-2024 Miscellaneous Notes* Telephone Encounter - Germaine Morales - 11/26/2023 3:30 PM EDT Patient's daughter called stating patient had been admitted to a hospital in [place] for fluid overload. Patient was given IV Lasix to remove the fluid. Local cargo vessel stewardess is planning a Mitral Valve Clip and want him to have the clip done sooner ratherthan later. Patient is wanting to discuss with Dr. Carrillo before he makes a decision. I advised the daughter, that I would schedule Mr. Antonio to see one of our AGRICULTURAL SCIENCES PROFESSOR's post discharge, butwould also let Dr. Carrillo know that he would like to speak with him regarding the MVR. Daughter understood, and stated that she would get [place] records and images sent to us. documented in this encounterSouthwest General Health Center03-11-[address]. [facility]S [facility] to [facility] via [facility]03-11-2024 Note Physical Therapy Cancellation note for Saturday11/25/23 pm Pt has been discharged from the hospital to return home , no therapy services needed . Attempted time : 15:05-15:06[facility]03-11-2024 Note [facility]03-10-2024 NoteKind[facility]03-10-2024 NoteKind[facility]03-10-2024 NoteSocial worker advised patient needs [facility]. Referral sent. Awaiting accepting. Mitzy Miguel accepted. AVS updated and sent to Mitzy miguel. No further OTM needs at this time.[facility]03-10-2024 NoteKind[facility]03-09-2024 Note[facility] 11-23-2023 NoteKind[facility]03-09-2024 NoteKind[facility]03-09-2024 Note[facility] 11-22-2023 NoteKind[facility]03-08-2024 Note[facility]03-08-2024 Note[facility] 11-22-2023 NoteKind[facility]03-07-2024 NoteKind[facility]03-07-2024 Note[facility] 11-21-2023 NoteKind[facility]03-06-2024 NoteKind[facility]03-06-2024 Note[facility] 11-20-2023 Note[facility]03-06-2024 NoteKind[facility]03-06-2024 Note[facility] 11-20-2023 NoteKind[facility]03-06-2024 Note[facility]03-06-2024 Note[facility] 11-19-2023 NoteKind[facility]03-04-2024 NoteKind[facility]02-14-2024 History of Present illness Narrative* Virgil Carrillo MD - 10/30/2023 9:00 AM EST Images from the original note were not included. [facility] [place] Jose Martin Silva Department of Cardiovascular Medicine SECTION OF CARDIOVASCULAR IMAGING OUTPATIENT VISIT DATE October 30, 2023 OUTPATIENT VISIT TYPE ESTABLISHED PRIMARY CARE PHYSICIAN: Samm Thompson [address] [place] [address] REFERRING PHYSICIAN: Tiarra Lopez [address] [facility] [address] CHIEF COMPLAINT: Follow up HISTORY OF PRESENT [...] (peripheral vascular disease) (HCC) 11/17/2012 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 Systolic heart failure (HCC) Thyroid disorder 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 kidney disease, unspecified CKD stage, unspecified whether watermelon inspector insulin use (HCC) 04/26/2023 Ventricular tachycardia ([facility]) 04/28/2012 PAST SURGICAL HISTORY Procedure [...] Artery Disease Father Heart Attack Father fatal [place] at age 77 Ischemic Heart Disease Brother CABGx6 first at age 72 No Known Problems Maternal Grandmother No Known Problems Maternal Grandfather No Known Problems Paternal Grandmother No Known Problems Paternal Grandfather No Known Problems Daughter No Known Problems Daughter No Known Problems Daughter other (Other) Other paternal cousin at age 50 of [place] ALLERGIES: ALLERGIES Allergen Reactions Latex Rash Adhesive Tape (Keyanna* Rash MEDICATIONS: furosemide (LASIX) 40 mg tablet Take 40 mg by mouth once daily. Cholecalciferol, Vitamin D3, 25 mcg (1,000 unit) cap Take 1,000 Units by mouth as needed. nitroglycerin sublingual (NITROQUICK) 0.4 mg SL tablet as directed. 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 aspirin, [...] BE NORMAL VARIANT ( Robert product ) AGE UNDETERMINED ABNORMAL ECG IMPRESSION: [...] ?20 mL/minute/1.73 m2, N Engl J Med. 2020;383(15):1560-9932. This should be considered if his repeat GFR is stable. He is getting 1 locally on and will reach out to me with the results Follow-up here in 3 months with an echo to review the degree of MR and consider further management options. I am also recommending that he establish care with our heart failure team here at [facility] Main campus CONTACT INFORMATION: Virgil Carrillo MD, PhD, [facility] Staff, Section of Cardiovascular Imaging Department of Cardiovascular Medicine [facility] [place] [facility] documented in this encounterSouthwest General Health Center12-12-2023 Miscellaneous Notes* Telephone Encounter - Carina Sue - 08/27/2023 11:21 AM EST Left a message with the patient regarding the cancellation of 10/22/2023 with . Informed the patient of the new scheduled appointment on 10/29/2023 with . documented in this encounterSouthwest General Health Center12-07-2023 Miscellaneous Notes* Telephone Encounter - Brenden Pollard - 08/22/2023 12:48 PM EST Call from pharmacy requesting refill. Requested Prescriptions Pending Prescriptions Disp Refills lisinopril (ZESTRIL) 5 mg tablet 90 tablet 3 Sig: Take 1 tablet by mouth once daily. Patient last seen 06-12-23 - Seen Alison Pollard documented in this encounterSouthwest General Health Center08-11-2023 History of Present illness Narrative* Zahra Pierre MD - 04/26/2023 7:01 AM EDT Images from the original note were not included. [facility] [place] Jose Martin Silva Department of Cardiovascular Medicine SECTION OF CARDIOVASCULAR IMAGING OUTPATIENT VISIT DATE April 26, 2023 OUTPATIENT VISIT TYPE ESTABLISHED PRIMARY CARE PHYSICIAN: Samm Thompson [address] [place] [address] REFERRING PHYSICIAN: Samm Hubbard[address] [facility] [address] CHIEF COMPLAINT: Follow up HISTORY OF PRESENT 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 Systolic heart failure ([facility]) Thyroid disorder 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 kidney disease, unspecified CKD stage, unspecified whether correction insulin use ([facility]) 04/26/2023 Ventricular tachycardia ([facility]) 04/28/2012 PAST SURGICAL HISTORY Procedure [...] Artery Disease Father Heart Attack Father fatal [place] at age 77 other (atrial fibrillation) Mother other (CHF) Mother other (Other) Mother at age 96 Ischemic Heart Disease Brother CABGx6 first at age 72 No Known Problems Daughter No Known Problems Daughter No Known Problems Daughter other (Other) Other paternal cousin at age 50 of [place] ALLERGIES: ALLERGIES Allergen Reactions Latex Rash Adhesive [...] ABNORMALITY ABNORMAL ECG Confirmed by MD VIET, [facility] ([id number]) on 06/26/2022 4:47:04 PM IMPRESSION AND PLAN: [...] on low- dose MARGARETTE inhibitor, beta-jasbir, and CDIX2xbgwsezok, as well as low-dose torsemide. As previously noted, he has not tolerated sacubitril/valsartan or spironolactone. He was previously in phase 2 cardiac rehabilitation, but this was stopped when he had a minor stroke, and I think it would be good for him to reinitiate this. Follow-up in 6 months. CONTACT INFORMATION: Zahra Pierre MD 12:56 PM April 27, 2023 documented in this encounterSouthwest General Health Center03-16-2023 Miscellaneous Notes* Telephone Encounter - Darlene Martinez - 11/29/2022 9:11 AM EDT Mr. Antonio decided not to move forward with surgery at this time and would like to cancel. Darlene Rajput Net Technical Architect documented in this encounterSouthwest General Health Center03-16-2023 History of Present illness Narrative* John Jefferson MD - 11/29/2022 12:00 AM EDT NAME: PACO SORTO [facility] NO: [id number] DATE OF SERVICE: 11/29/2022 DATE OF : 1940 He let us know he has changed his mind about proceeding with his carotid surgery. We will wait to see what he says about moving ahead and when he wants to reschedule. John Jefferson M.D. SPL/089 Audio #: [id number] Date Dictated: 11/29/2022 14:25:32 Date Typed: 11/30/2022 09:05:53 Date Revised: documented in this encounterSouthwest General Health Center02-15-2023 Miscellaneous Notes* Telephone Encounter - Lidia Mccloud - 10/31/2022 11:58 AM EST Called patient José Miguel to clarify surgery date and advise pre scheduled date requested, asked if I could look up his brothers surgery information, advised I could not my apologizes,to also check as he has EKG/Echo scheduled with Cardiac scheduled day after surgery ..Tiffany H documented in this encounterSouthwest General Health Center02-10-2023 History of Present illness Narrative* Zahra Pierre MD - 10/26/2022 11:38 AM EST Images from the original note were not included. [facility] [place] Jose Martin Silva Department of Cardiovascular Medicine SECTION OF CARDIOVASCULAR IMAGING OUTPATIENT VISIT DATE October 26, 2022 OUTPATIENT VISIT TYPE ESTABLISHED PRIMARY CARE PHYSICIAN: Samm Thompson MD [address] [place] [address] REFERRING PHYSICIAN: Zahra Pierre [address] [facility] [id number] CHIEF COMPLAINT: Follow up HISTORY OF PRESENT [...] combined systolic and diastolic congestive heart failure ([facility]) 09/03/2022 Dyslipidemia GERD (gastroesophageal reflux disease) Heart failure, acute systolic ([facility]) Hypertension Hypothyroid Myocardial infarct, old Occlusion and stenosis of carotid artery without mention of cerebral infarction Prostate cancer ([facility]) 2020 PVD (peripheral vascular disease) ([facility]) 11/17/2012 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 Systolic heart failure ([facility]) Thyroid disorder Ventricular tachycardia 04/28/2012 [...] Artery Disease Father Heart Attack Father fatal [place] at age 77 other (atrial fibrillation) Mother other (CHF) Mother other (Other) Mother at age 96 Ischemic Heart Disease Brother CABGx6 first at age 72 No Known Problems Daughter No Known Problems Daughter No Known Problems Daughter other (Other) Other paternal cousin at age 50 of [place] ALLERGIES: ALLERGIES Allergen Reactions Latex Rash Adhesive [...] ABNORMAL ECG Confirmed by MD VIET, HEBA ([id number]) on 06/26/2022 4:47:04 PM IMPRESSION AND PLAN: [...] AM November 02, 2022 documented in this encounterSouthwest General Health Center02-09-2023 Instructions* Patient Instructions* Zahra Pierre MD - 10/25/2022 4:11 PM EST OK for surgery. Do not take your lisinopril the day before and the day of surgery. Continue your other medications. Check blood work today. Return in 6 months with an echocardiogram. documented in this encounterSouthwest General Health Center02-09-2023 History of Present illness Narrative* Josselin Claros RN - 10/25/2022 1:45 PM EST RADIOLOGY SERVICE PROGRESS NOTE SERVICE DATE: 10/25/2022 SERVICE TIME: 1:46 PM PATIENT IDENTITY VERIFICATION COMPLETED USING TWO (2) STANDARD IDENTIFIERS: Name and Date of confirmed by patient verbally and Name and Date of confirmed by identification band PATIENT GENDER DATA: male ALLERGIES: Reviewed and unchanged MEDICATIONS REVIEWED BY: Foreign Exchange Position Clerk and Josselin Claros RN PROCEDURE TYPE: NM PET Myocardial Imagin.4 mg of Regadenoson was administered at 1359 over 10 Seconds. Reversal agent used: None. and NM PET Myocardial Action Taken: POCT Blood Glucose 101 mg/dL at 1339 (QC = OK).9.2 mCi FDG-18 IV at 1416. POCT Blood Glucose 98 mg/dL at 1415 (QC = OK). Expiration date: 16JUN2025 Lot#: [id number] SITE: Ambulatory: A peripheral IV was [...] information regarding radiation safety can be found usingQuantified [employer] link: [email or web address]%[email or web address] 20Diagnostic%20Nuclear%20Medicine%20Procedures.pdf SIGNATURE: Josselin Claros RN PATIENT NAME: José Miguel Antonio Jr. DATE: October 25, 2022 TIME: 1:46 PM PAGER/CONTACT #: * Luigi Desai BigFix - 10/25/2022 1:45 PM EST RADIOLOGY SERVICE [...] radiation safety can be found usingthis link: [email or web address]%[email or web address] 20Diagnostic%20Nuclear%20Medicine%20Procedures.pdf SIGNATURE: Madalyn Castro PATIENT NAME: José Miguel Antonio Jr. DATE: October 25, 2022 TIME: 1:32 PM PAGER/CONTACT #: documented in this encounterSouthwest General Health Center01-17-2023 Nurse Note* Kathie Pavon RN - 10/02/2022 1:14 PM EST AUA 1.5 Kathie Pavon RN documented in this encounterSouthwest General Health Center01-17-2023 History of Present illness Narrative* G Denilson Andrade MD - 10/02/2022 1:09 PM EST [...] PSA 08/2021 36.2. and repeat biopsy showing [place] 7 (3+4) adenocarcinoma. 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 If all recommended orders are present route to P PET HOSPICE ADMITTING CLERK [facility] * Telephone Encounter - Darlene Moore - 09/07/2022 12:36 PM EST This form is used for MAIN CAMPUS APPOINTMENTS ONLY. Is this request for a Main [place] PET scan appointment? Yes: Powder Loader: Darlene LUNA Requesting Person (Zahra Pierre): [phone] Area Code + Phone/Pager: Who do we [...] day/next day medically urgent scans please call [phone] to expedite LVEF: LV Ejection Fraction (%) Date Value 06/06/2022 20 LVEF Free text: Yes, see above. Additional comments: N/A Send requests to P CARDIAC PET MD NERI documented in this encounterSouthwest General Health Center12-19-2022 History of Present illness Narrative* John Jefferson MD - 09/03/2022 11:15 AM EST Images from the original note were not included. DATE: 07/01/2012 AGE: 72 SURGEON 1: John Jefferson M.D. OPERATION: Right carotid endarterectomy with bovine patch angioplasty. Heart , Vascular [facility] Thoracic [place] DEPARTMENT OF VASCULAR SURGERY OUTPATIENT VISIT DATE September 03, 2022 OUTPATIENT VISIT TYPE CONSULTATION SERVICE DATE: 09/03/2022 SERVICE TIME: 11:53 AM PRIMARY CARE PHYSICIAN: Samm Thompson MD, MD REFERRING PROVIDER: Samm Thompson MD [address] [facility] [address] Consult requested for an opinion regarding the [...] Of note, he was recently hospitalized in [place] on April for not feeling well. He has been grieving since his has passed in December. 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 without mention of cerebral infarction Prostate cancer ([facility]) 2020 PVD (peripheral vascular disease) ([facility]) 11/17/2012 Thyroid disorder Ventricular tachycardia [...] Artery Disease Father Heart Attack Father fatal [place] at age 77 other (atrial fibrillation) Mother other (CHF) Mother other (Other) Mother at age 96 Ischemic Heart Disease Brother CABGx6 first at age 72 No Known Problems Daughter No Known Problems Daughter No Known Problems Daughter other (Other) Other paternal cousin at age 50 of [place] MEDICATIONS: therapeutic multivitamin w/ iron (THERAGRAN-M) 27-0.4 [...] reviewed for today's visit: HUSSEIN Jefferson MD ([id number]) paged with results. Compared to prior study [...] flow noted. Abnormal signal suggests pre-steal. IMPRESSION: [facility] STAFF PHYSICIAN NOTE OF PERSONAL INVOLVEMENT [...] 2022 TIME: 2:20 PM documented in this encounterSouthwest General Health Center11-16-2022 Miscellaneous Notes* Telephone Encounter - Ayana Jauregui - 08/01/2022 4:10 PM EST Mr Antonio's daughter called and she would like to schedule an appointment with pt advised to do so due to Carotid stenosis seen Dr jefferson in 2011 regarding right side now its the left side having issues Contact Name (If not the pt): Charu, daughter Home and cell number: [phone] Diagnosis: Carotid stenosis Kind Regards Ayana Jauregui documented in this encounterSouthwest General Health Center11-14-2022 Miscellaneous Notes* Telephone Encounter - Mary Gross - 07/30/2022 3:11 PM EST Reason for call: Mr Antonio called,and he would like to schedule an appointment with Contact Name (If not the pt): Charu, daughter Home and cell number: [phone] Diagnosis: Mitral valve insufficiency, unspecified etiology Kind Regards Megdiamond documented in this encounterSouthwest General Health Center11-09-2022 Miscellaneous Notes* Telephone Encounter - Luís Crandall - 07/25/2022 3:04 PM EST Images have been pushed through into [employer]. Daughter would like you to call her to go over things as this was all completed after he saw you judy. She can be reached at [phone] Her name is Charu documented in this encounterSouthwest General Health Center09-21-2022 History of Present illness Narrative* Zahra Pierre MD - 06/06/2022 3:28 PM EDT Heart [facility] [place] Jose Martin Silva Department of Cardiovascular Medicine SECTION OF CARDIOVASCULAR IMAGING OUTPATIENT VISIT DATE June 06, 2022 OUTPATIENT VISIT TYPE ESTABLISHED PRIMARY CARE PHYSICIAN: Samm Thompson MD [address] [place] [address] CHIEF COMPLAINT: Follow up HISTORY OF PRESENT [...] without mention of cerebral infarction Prostate cancer ([facility]) 2020 PVD (peripheral vascular disease) ([facility]) 11/17/2012 Thyroid disorder Ventricular tachycardia ([facility]) 04/28/2012 PAST SURGICAL HISTORY Procedure [...] Artery Disease Father Heart Attack Father fatal [place] at age 77 other (atrial fibrillation) Mother other (CHF) Mother other (Other) Mother at age 96 Ischemic Heart Disease Brother CABGx6 first at age 72 No Known Problems Daughter No Known Problems Daughter No Known Problems Daughter other (Other) Other paternal cousin at age 50 of [place] ALLERGIES: ALLERGIES Allergen Reactions Latex Rash Adhesive [...] any questions regarding this interpretation, please call [phone]. If you are unable to reach us at the number above, please feel free to contact [facility] at [phone]. IMPRESSION: Mr. Antonio is a 82 year [...] PM June 06, 2022 documented in this encounterSouthwest General Health Center08-11-2022 History of Present illness Narrative* G Denilson Andrade MD - 04/26/2022 8:02 AM EDT AMBULATORY TELEPHONE VISIT José Miguel Larry Antonio Jr. has consented to this telephone [...] PSA 08/2021 36.2. and repeat biopsy showing [place] 7 (3+4) adenocarcinoma. RADIATION SUMMARY: DATES OF [...] PSA 08/2021 36.2. and repeat biopsy showing [place] 7 (3+4) adenocarcinoma. Overall doing well without evidence of recurrence. PSA remains undetectable. Has been off Lupron now, last dose approximately 9 months ago. Recommend continued PSA surveillance. Total Time Spent: 5 minutes Yung Andrade MD documented [facility] History of Present illness Narrative* Yung Andrade MD - 01/03/2022 12:00 AM EDT [facility] Radiation Oncology Department RADIATION ONCOLOGY - COMPLETION NOTE PATIENT: JOSÉ MIGUEL ANTONIO: 1940 DATES OF TREATMENT: 10/23/2021 to 12/18/2021 DIAGNOSIS: Prostate adenocarcinoma, initial PSA 8, biopsy [place] score 3 + 4 = 7 (grade group 2), clinical stage T1c, N0, M0, stage IIB [T1-T2, N0, M0, PSA <20, GG 2] (AJCC 8th ed.), s/p TRUS Random biopsy, Patient elected observation and was found to have progression, PSA 08/2021 36.2. and repeat biopsy showing [place] 7 (3+4) adenocarcinoma. AREA TREATED: Pelvis Prostate [...] / WST :25 PM documented in this [facility]04-04-[facility]22 History of Present illness Narrative* Yung Andrade MD - 12/18/2021 12:00 AM EDT [facility] Radiation Oncology Department RADIATION ONCOLOGY - COMPLETION NOTE PATIENT: JOSÉ MIGUEL ANTONIO: 1940 DATES OF TREATMENT: 10/23/2021 to 12/19/2019 DIAGNOSIS: Prostate adenocarcinoma, initial PSA 8, biopsy [place] score 3 + 4 = 7 (grade group 2), clinical stage T1c, N0, M0, stage IIB [T1-T2, N0, M0, PSA <20, GG 2] (AJCC 8th ed.), s/p TRUS Random biopsy, Patient elected observation and was found to have progression, PSA 08/2021 36.2. and repeat biopsy showing [place] 7 (3+4) adenocarcinoma. AREA TREATED: Pelvis Prostate [...] / WST 21:22 PM documented in this [facility]03-28-[facility]22 History of Present illness Narrative* Yung [...] finishes this week. Follow-up care discussed. Yung nAdrade MD documented in this encounterSouth[facility]12-29-2021 History of Present illness Narrative* Devika Fishman, RT(R) - 09/13/2021 2:45 PM EST Radiology [...] 13, 2021 2:54 PM documented in this encounterSouth[facility]12-29-2021 Nurse Note* Allyn Tong RN - [...] DATE: September 13, 2021 TIME: 2:57 PM [facility] Note* Allyn Tong RN - [...] 2021 TIME: 2:57 PM documented in this encounterSouth[facility]01-24-2018 History of Past illness Narrative* Problem [...] 56, Troponin T .37 on admission to [facility] Wide-complex tachycardia 04/28/2012 Overview: Presented to OSH 04/28/12 in setting acute AK with wide complex tachycardia SVT versus VT. Given adenosine x2 without effect, diltiazem bolus and infusion with no effect. Spontaneous conversion to NSR. Had short run of wide complex tachycardia upon arrival to [facility] from CICU. Pre-op evaluation 04/28/2012 05/01/2012 Overview: Preoperative evaluation for CABG. Not ReDo -Carotids: Ordered -Vein Mapping: Ordered -Bedside PFTs: Ordered -Formal TTE: Ordered -CXR: Completed documented as of this encounter (statuses as of 10/30/2023) [facility] of Past illness Narrative* Problem [...] 56, Troponin T .37 on admission to [facility] Wide-complex tachycardia 04/28/2012 Overview: Presented to OSH 04/28/12 in setting acute AK with wide complex tachycardia SVT versus VT. Given adenosine x2 without effect, diltiazem bolus and infusion with no effect. Spontaneous conversion to NSR. Had short run of wide complex tachycardia upon arrival to [facility] from CICU. Pre-op evaluation 04/28/2012 05/01/2012 Overview: Preoperative evaluation for CABG. Not ReDo -Carotids: Ordered -Vein Mapping: Ordered -Bedside PFTs: Ordered -Formal TTE: Ordered -CXR: Completed documented as of this encounter (statuses as of 11/27/2023) [facility] of Past illness Narrative* Problem [...] 56, Troponin T .37 on admission to [facility] Wide-complex tachycardia 04/28/2012 Overview: Presented to OSH 04/28/12 in setting acute AK with wide complex tachycardia SVT versus VT. Given adenosine x2 without effect, diltiazem bolus and infusion with no effect. Spontaneous conversion to NSR. Had short run of wide complex tachycardia upon arrival to [facility] from CICU. Pre-op evaluation 04/28/2012 05/01/2012 Overview: Preoperative evaluation for CABG. Not ReDo -Carotids: Ordered -Vein Mapping: Ordered -Bedside PFTs: Ordered -Formal TTE: Ordered -CXR: Completed documented as of this encounter (statuses as of 11/27/2023) [facility] of Past illness Narrative* Problem [...] 56, Troponin T .37 on admission to [facility] Wide-complex tachycardia 04/28/2012 Overview: Presented to OSH 04/28/12 in setting acute AK with wide complex tachycardia SVT versus VT. Given adenosine x2 without effect, diltiazem bolus and infusion with no effect. Spontaneous conversion to NSR. Had short run of wide complex tachycardia upon arrival to [facility] from CICU. Pre-op evaluation 04/28/2012 05/01/2012 Overview: Preoperative evaluation for CABG. Not ReDo -Carotids: Ordered -Vein Mapping: Ordered -Bedside PFTs: Ordered -Formal TTE: Ordered -CXR: Completed documented as of this encounter (statuses as of 12/04/2023) [facility] of Past illness Narrative* Problem [...] 56, Troponin T .37 on admission to [facility] Wide-complex tachycardia 04/28/2012 Overview: Presented to OSH 04/28/12 in setting acute AK with wide complex tachycardia SVT versus VT. Given adenosine x2 without effect, diltiazem bolus and infusion with no effect. Spontaneous conversion to NSR. Had short run of wide complex tachycardia upon arrival to [facility] from CICU. Pre-op evaluation 04/28/2012 05/01/2012 Overview: Preoperative evaluation for CABG. Not ReDo -Carotids: Ordered -Vein Mapping: Ordered -Bedside PFTs: Ordered -Formal TTE: Ordered -CXR: Completed documented as of this encounter (statuses as of 12/20/2023) [facility] of [facility] illness Narrative* Problem [...] 56, Troponin T .37 on admission to [facility] Wide-complex tachycardia 04/28/2012 Overview: Presented to OSH 04/28/12 in setting acute AK with wide complex tachycardia SVT versus VT. Given adenosine x2 without effect, diltiazem bolus and infusion with no effect. Spontaneous conversion to NSR. Had short run of wide complex tachycardia upon arrival to [facility] from CICU. Pre-op evaluation 04/28/2012 05/01/2012 Overview: Preoperative evaluation for CABG. Not ReDo -Carotids: Ordered -Vein Mapping: Ordered -Bedside PFTs: Ordered -Formal TTE: Ordered -CXR: Completed documented as of this encounter (statuses as of 12/23/2023) [facility] illness Narrative* Problem [...] 56, Troponin T .37 on admission to [facility] Wide-complex tachycardia 04/28/2012 Overview: Presented to OSH 04/28/12 in setting acute AK with wide complex tachycardia SVT versus VT. Given adenosine x2 without effect, diltiazem bolus and infusion with no effect. Spontaneous conversion to NSR. Had short run of wide complex tachycardia upon arrival to [facility] from CICU. Pre-op evaluation 04/28/2012 05/01/2012 Overview: Preoperative evaluation for CABG. Not ReDo -Carotids: Ordered -Vein Mapping: Ordered -Bedside PFTs: Ordered -Formal TTE: Ordered -CXR: Completed documented as of this encounter (statuses as of 12/24/2023) [facility] of [facility] illness Narrative* Problem [...] 56, Troponin T .37 on admission to [facility] Wide-complex tachycardia 04/28/2012 Overview: Presented to OSH 04/28/12 in setting acute AK with wide complex tachycardia SVT versus VT. Given adenosine x2 without effect, diltiazem bolus and infusion with no effect. Spontaneous conversion to NSR. Had short run of wide complex tachycardia upon arrival to [facility] from CICU. Pre-op evaluation 04/28/2012 05/01/2012 Overview: Preoperative evaluation for CABG. Not ReDo -Carotids: Ordered -Vein Mapping: Ordered -Bedside PFTs: Ordered -Formal TTE: Ordered -CXR: Completed documented as of this encounter (statuses as of 12/27/2023) [facility] illness Narrative* Problem [...] 56, Troponin T .37 on admission to [facility] Wide-complex tachycardia 04/28/2012 Overview: Presented to OSH 04/28/12 in setting acute AK with wide complex tachycardia SVT versus VT. Given adenosine x2 without effect, diltiazem bolus and infusion with no effect. Spontaneous conversion to NSR. Had short run of wide complex tachycardia upon arrival to [facility] from CICU. Pre-op evaluation 04/28/2012 05/01/2012 Overview: Preoperative evaluation for CABG. Not ReDo -Carotids: Ordered -Vein Mapping: Ordered -Bedside PFTs: Ordered -Formal TTE: Ordered -CXR: Completed documented as of this encounter (statuses as of 12/27/2023) [facility] of [facility] illness Narrative* Problem [...] 56, Troponin T .37 on admission to [facility] Wide-complex tachycardia 04/28/2012 Overview: Presented to OSH 04/28/12 in setting acute AK with wide complex tachycardia SVT versus VT. Given adenosine x2 without effect, diltiazem bolus and infusion with no effect. Spontaneous conversion to NSR. Had short run of wide complex tachycardia upon arrival to [facility] from CICU. Pre-op evaluation 04/28/2012 05/01/2012 Overview: Preoperative evaluation for CABG. Not ReDo -Carotids: Ordered -Vein Mapping: Ordered -Bedside PFTs: Ordered -Formal TTE: Ordered -CXR: Completed documented as of this encounter (statuses as of 12/31/2023) [facility] illness Narrative* Problem [...] 56, Troponin T .37 on admission to [facility] Wide-complex tachycardia 04/28/2012 Overview: Presented to OSH 04/28/12 in setting acute AK with wide complex tachycardia SVT versus VT. Given adenosine x2 without effect, diltiazem bolus and infusion with no effect. Spontaneous conversion to NSR. Had short run of wide complex tachycardia upon arrival to [facility] from CICU. Pre-op evaluation 04/28/2012 05/01/2012 Overview: Preoperative evaluation for CABG. Not ReDo -Carotids: Ordered -Vein Mapping: Ordered -Bedside PFTs: Ordered -Formal TTE: Ordered -CXR: Completed documented as of this encounter (statuses as of 01/02/2024) [facility] Narrative* Problem [...] 56, Troponin T .37 on admission to [facility] Wide-complex tachycardia 04/28/2012 Overview: Presented to OSH 04/28/12 in setting acute AK with wide complex tachycardia SVT versus VT. Given adenosine x2 without effect, diltiazem bolus and infusion with no effect. Spontaneous conversion to NSR. Had short run of wide complex tachycardia upon arrival to [facility] from CICU. Pre-op evaluation 04/28/2012 05/01/2012 Overview: Preoperative evaluation for CABG. Not ReDo -Carotids: Ordered -Vein Mapping: Ordered -Bedside PFTs: Ordered -Formal TTE: Ordered -CXR: Completed documented as of this encounter (statuses as of 01/03/2024) [facility] Narrative* Problem [...] 56, Troponin T .37 on admission to [facility] Wide-complex tachycardia 04/28/2012 012 Overview: Presented to OSH 04/28/12 in setting acute AK with wide complex tachycardia SVT versus VT. Given adenosine x2 without effect, diltiazem bolus and infusion with no effect. Spontaneous conversion to NSR. Had short run of wide complex tachycardia upon arrival to [facility] from CICU. Pre-op evaluation 04/28/2012 05/01/2012 Overview: Preoperative evaluation for CABG. Not ReDo -Carotids: Ordered -Vein Mapping: Ordered -Bedside PFTs: Ordered -Formal TTE: Ordered -CXR: Completed documented as of this encounter (statuses as of 12/18/2021) [facility] Narrative* Problem [...] 56, Troponin T .37 on admission to [facility] Wide-complex tachycardia 04/28/2012 012 Overview: Presented to OSH 04/28/12 in setting acute AK with wide complex tachycardia SVT versus VT. Given adenosine x2 without effect, diltiazem bolus and infusion with no effect. Spontaneous conversion to NSR. Had short run of wide complex tachycardia upon arrival to [facility] from CICU. Pre-op evaluation 04/28/2012 05/01/2012 Overview: Preoperative evaluation for CABG. Not ReDo -Carotids: Ordered -Vein Mapping: Ordered -Bedside PFTs: Ordered -Formal TTE: Ordered -CXR: Completed documented as of this encounter (statuses as of 12/21/2021) [facility] illness Narrative* Problem [...] 56, Troponin T .37 on admission to [facility] Wide-complex tachycardia 04/28/2012 012 Overview: Presented to OSH 04/28/12 in setting acute AK with wide complex tachycardia SVT versus VT. Given adenosine x2 without effect, diltiazem bolus and infusion with no effect. Spontaneous conversion to NSR. Had short run of wide complex tachycardia upon arrival to [facility] from CICU. Pre-op evaluation 04/28/2012 05/01/2012 Overview: Preoperative evaluation for CABG. Not ReDo -Carotids: Ordered -Vein Mapping: Ordered -Bedside PFTs: Ordered -Formal TTE: Ordered -CXR: Completed documented as of this encounter (statuses as of 01/15/2022) [facility] Narrative* Problem [...] 56, Troponin T .37 on admission to [facility] Wide-complex tachycardia 04/28/2012 012 Overview: Presented to OSH 04/28/12 in setting acute AK with wide complex tachycardia SVT versus VT. Given adenosine x2 without effect, diltiazem bolus and infusion with no effect. Spontaneous conversion to NSR. Had short run of wide complex tachycardia upon arrival to [facility] from CICU. Pre-op evaluation 04/28/2012 05/01/2012 Overview: Preoperative evaluation for CABG. Not ReDo -Carotids: Ordered -Vein Mapping: Ordered -Bedside PFTs: Ordered -Formal TTE: Ordered -CXR: Completed documented as of this encounter (statuses as of 01/18/2022) [facility] Narrative* Problem [...] 56, Troponin T .37 on admission to [facility] Wide-complex tachycardia 04/28/2012 012 Overview: Presented to OSH 04/28/12 in setting acute AK with wide complex tachycardia SVT versus VT. Given adenosine x2 without effect, diltiazem bolus and infusion with no effect. Spontaneous conversion to NSR. Had short run of wide complex tachycardia upon arrival to [facility] from CICU. Pre-op evaluation 04/28/2012 05/01/2012 Overview: Preoperative evaluation for CABG. Not ReDo -Carotids: Ordered -Vein Mapping: Ordered -Bedside PFTs: Ordered -Formal TTE: Ordered -CXR: Completed documented as of this encounter (statuses as of 02/06/2022) [facility] Narrative* Problem [...] 56, Troponin T .37 on admission to [facility] Wide-complex tachycardia 04/28/2012 012 Overview: Presented to OSH 04/28/12 in setting acute AK with wide complex tachycardia SVT versus VT. Given adenosine x2 without effect, diltiazem bolus and infusion with no effect. Spontaneous conversion to NSR. Had short run of wide complex tachycardia upon arrival to [facility] from CICU. Pre-op evaluation 04/28/2012 05/01/2012 Overview: Preoperative evaluation for CABG. Not ReDo -Carotids: Ordered -Vein Mapping: Ordered -Bedside PFTs: Ordered -Formal TTE: Ordered -CXR: Completed documented as of this encounter (statuses as of 04/26/2022) [facility] Narrative* Problem [...] 56, Troponin T .37 on admission to [facility] Wide-complex tachycardia 04/28/2012 012 Overview: Presented to OSH 04/28/12 in setting acute AK with wide complex tachycardia SVT versus VT. Given adenosine x2 without effect, diltiazem bolus and infusion with no effect. Spontaneous conversion to NSR. Had short run of wide complex tachycardia upon arrival to [facility] from [facility]. Pre-op evaluation 04/28/2012 05/01/2012 Overview: Preoperative evaluation for CABG. Not ReDo -Carotids: Ordered -Vein Mapping: Ordered -Bedside PFTs: Ordered -Formal TTE: Ordered -CXR: Completed documented as of this encounter (statuses as of 05/08/2022) [facility] Narrative* Problem [...] 56, Troponin T .37 on admission to [facility] Wide-complex tachycardia 04/28/2012 012 Overview: Presented to OSH 04/28/12 in setting acute AK with wide complex tachycardia SVT versus VT. Given adenosine x2 without effect, diltiazem bolus and infusion with no effect. Spontaneous conversion to NSR. Had short run of wide complex tachycardia upon arrival to [facility] from CICU. Pre-op evaluation 04/28/2012 05/01/2012 Overview: Preoperative evaluation for CABG. Not ReDo -Carotids: Ordered -Vein Mapping: Ordered -Bedside PFTs: Ordered -Formal TTE: Ordered -CXR: Completed documented as of this encounter (statuses as of 06/06/2022) [facility] Narrative* Problem [...] 56, Troponin T .37 on admission to [facility] Wide-complex tachycardia 04/28/2012 012 Overview: Presented to OSH 04/28/12 in setting acute AK with wide complex tachycardia SVT versus VT. Given adenosine x2 without effect, diltiazem bolus and infusion with no effect. Spontaneous conversion to NSR. Had short run of wide complex tachycardia upon arrival to [facility] from C[facility]. Pre-op evaluation 04/28/2012 05/01/2012 Overview: Preoperative evaluation for CABG. Not ReDo -Carotids: Ordered -Vein Mapping: Ordered -Bedside PFTs: Ordered -Formal TTE: Ordered -CXR: Completed documented as of this encounter (statuses as of 06/06/2022) [facility] Narrative* Problem [...] 56, Troponin T .37 on admission to [facility] Wide-complex tachycardia 04/28/2012 012 Overview: Presented to OSH 04/28/12 in setting acute AK with wide complex tachycardia SVT versus VT. Given adenosine x2 without effect, diltiazem bolus and infusion with no effect. Spontaneous conversion to NSR. Had short run of wide complex tachycardia upon arrival to [facility] from [facility]. Pre-op evaluation 04/28/2012 05/01/2012 Overview: Preoperative evaluation for CABG. Not ReDo -Carotids: Ordered -Vein Mapping: Ordered -Bedside PFTs: Ordered -Formal TTE: Ordered -CXR: Completed documented as of this encounter (statuses as of 07/31/2022) [facility] Narrative* Problem [...] 56, Troponin T .37 on admission to [facility] Wide-complex tachycardia 04/28/2012 012 Overview: Presented to OSH 04/28/12 in setting acute AK with wide complex tachycardia SVT versus VT. Given adenosine x2 without effect, diltiazem bolus and infusion with no effect. Spontaneous conversion to NSR. Had short run of wide complex tachycardia upon arrival to [facility] from [facility]. Pre-op evaluation 04/28/2012 05/01/2012 Overview: Preoperative evaluation for CABG. Not ReDo -Carotids: Ordered -Vein Mapping: Ordered -Bedside PFTs: Ordered -Formal TTE: Ordered -CXR: Completed documented as of this encounter (statuses as of 08/01/2022) [facility] Narrative* Problem [...] 56, Troponin T .37 on admission to [facility] Wide-complex tachycardia 04/28/2012 012 Overview: Presented to OSH 04/28/12 in setting acute AK with wide complex tachycardia SVT versus VT. Given adenosine x2 without effect, diltiazem bolus and infusion with no effect. Spontaneous conversion to NSR. Had short run of wide complex tachycardia upon arrival to [facility] from [facility]. Pre-op evaluation 04/28/2012 05/01/2012 Overview: Preoperative evaluation for CABG. Not ReDo -Carotids: Ordered -Vein Mapping: Ordered -Bedside PFTs: Ordered -Formal TTE: Ordered -CXR: Completed documented as of this encounter (statuses as of 08/03/2022) [facility] Narrative* Problem [...] 56, Troponin T .37 on admission to [facility] Wide-complex tachycardia 04/28/2012 012 Overview: Presented to OSH 04/28/12 in setting acute AK with wide complex tachycardia SVT versus VT. Given adenosine x2 without effect, diltiazem bolus and infusion with no effect. Spontaneous conversion to NSR. Had short run of wide complex tachycardia upon arrival to [facility] from [facility]. Pre-op evaluation 04/28/2012 05/01/2012 Overview: Preoperative evaluation for CABG. Not ReDo -Carotids: Ordered -Vein Mapping: Ordered -Bedside PFTs: Ordered -Formal TTE: Ordered -CXR: Completed documented as of this encounter (statuses as of 08/07/2022) [facility] Narrative* Problem [...] 56, Troponin T .37 on admission to [facility] Wide-complex tachycardia 04/28/2012 012 Overview: Presented to OSH 04/28/12 in setting acute AK with wide complex tachycardia SVT versus VT. Given adenosine x2 without effect, diltiazem bolus and infusion with no effect. Spontaneous conversion to NSR. Had short run of wide complex tachycardia upon arrival to [facility] from [facility]. Pre-op evaluation 04/28/2012 05/01/2012 Overview: Preoperative evaluation for CABG. Not ReDo -Carotids: Ordered -Vein Mapping: Ordered -Bedside PFTs: Ordered -Formal TTE: Ordered -CXR: Completed documented as of this encounter (statuses as of 08/17/2022) [facility] Narrative* Problem [...] 56, Troponin T .37 on admission to [facility] Wide-complex tachycardia 04/28/2012 012 Overview: Presented to OSH 04/28/12 in setting acute AK with wide complex tachycardia SVT versus VT. Given adenosine x2 without effect, diltiazem bolus and infusion with no effect. Spontaneous conversion to NSR. Had short run of wide complex tachycardia upon arrival to [facility] from [facility]. Pre-op evaluation 04/28/2012 05/01/2012 Overview: Preoperative evaluation for CABG. Not ReDo -Carotids: Ordered -Vein Mapping: Ordered -Bedside PFTs: Ordered -Formal TTE: Ordered -CXR: Completed documented as of this encounter (statuses as of 09/03/2022) [facility] Narrative* Problem [...] 56, Troponin T .37 on admission to [facility] Wide-complex tachycardia 04/28/2012 08/20/2 012 Overview: Presented to OSH 04/28/12 in setting acute AK with wide complex tachycardia SVT versus VT. [...] of this encounter (statuses as of 09/07/2022) [facility] Narrative* Problem [...] 56, Troponin T .37 on admission to [facility] Wide-complex tachycardia 04/28/20122 012 Overview: Presented to OSH 04/28/12 in setting acute AK with wide complex tachycardia SVT versus VT. Given adenosine x2 without effect, diltiazem bolus and infusion with no effect. Spontaneous conversion to NSR. Had short run of wide complex tachycardia upon arrival to [facility] from [facility]. Pre-op evaluation 04/28/2012 05/01/2012 Overview: Preoperative evaluation for CABG. Not ReDo -Carotids: Ordered -Vein Mapping: Ordered -Bedside PFTs: Ordered -Formal TTE: Ordered -CXR: Completed documented as of this encounter (statuses as of 10/08/2022) [facility] Narrative* Problem [...] 56, Troponin T .37 on admission to [facility] Wide-complex tachycardia 04/28/2012 012 Overview: Presented to OSH 04/28/12 in setting acute AK with wide complex tachycardia SVT versus VT. Given adenosine x2 without effect, diltiazem bolus and infusion with no effect. Spontaneous conversion to NSR. Had short run of wide complex tachycardia upon arrival to [facility] from [facility]. Pre-op evaluation 04/28/2012 05/01/2012 Overview: Preoperative evaluation for CABG. Not ReDo -Carotids: Ordered -Vein Mapping: Ordered -Bedside PFTs: Ordered -Formal TTE: Ordered -CXR: Completed documented as of this encounter (statuses as of 10/26/2022) [facility] History of Past illness Narrative* Problem [...] 56, Troponin T .37 on admission to [facility] Wide-complex tachycardia 04/28/2012 012 Overview: Presented to OSH 04/28/12 in setting acute AK with wide complex tachycardia SVT versus VT. [...] of this encounter (statuses as of 10/26/2022) [facility] History of Past illness Narrative* Problem [...] 56, Troponin T .37 on admission to [facility] Wide-complex tachycardia 04/28/2012 012 Overview: Presented to OSH 04/28/12 in setting acute AK with wide complex tachycardia SVT versus VT. Given adenosine x2 without effect, diltiazem bolus and infusion with no effect. Spontaneous conversion to NSR. Had short run of wide complex tachycardia upon arrival to [facility] from [facility]. Pre-op evaluation 04/28/2012 05/01/2012 Overview: Preoperative evaluation for CABG. Not ReDo -Carotids: Ordered -Vein Mapping: Ordered -Bedside PFTs: Ordered -Formal TTE: Ordered -CXR: Completed documented as of this encounter (statuses as of 10/31/2022) [facility] History of Past illness Narrative* Problem [...] 56, Troponin T .37 on admission to [facility] Wide-complex tachycardia 04/28/2012 012 Overview: Presented to OSH 04/28/12 in setting acute AK with wide complex tachycardia SVT versus VT. Given adenosine x2 without effect, diltiazem bolus and infusion with no effect. Spontaneous conversion to NSR. Had short run of wide complex tachycardia upon arrival to [facility] from [facility]. Pre-op evaluation 04/28/2012 05/01/2012 Overview: Preoperative evaluation for CABG. Not ReDo -Carotids: Ordered -Vein Mapping: Ordered -Bedside PFTs: Ordered -Formal TTE: Ordered -CXR: Completed documented as of this encounter (statuses as of 11/02/2022) [facility] History of Past illness Narrative* Problem [...] 56, Troponin T .37 on admission to [facility] Wide-complex tachycardia 04/28/2012 012 Overview: Presented to OSH 04/28/12 in setting acute AK with wide complex tachycardia SVT versus VT. Given adenosine x2 without effect, diltiazem bolus and infusion with no effect. Spontaneous conversion to NSR. Had short run of wide complex tachycardia upon arrival to [facility] from [facility]. Pre-op evaluation 04/28/2012 05/01/2012 Overview: Preoperative evaluation for CABG. Not ReDo -Carotids: Ordered -Vein Mapping: Ordered -Bedside PFTs: Ordered -Formal TTE: Ordered -CXR: Completed documented as of this encounter (statuses as of 11/07/2022) [facility] History of Past illness Narrative* Problem [...] 56, Troponin T .37 on admission to [facility] Wide-complex tachycardia 04/28/2012 012 Overview: Presented to OSH 04/28/12 in setting acute AK with wide complex tachycardia SVT versus VT. Given adenosine x2 without effect, diltiazem bolus and infusion with no effect. Spontaneous conversion to NSR. Had short run of wide complex tachycardia upon arrival to [facility] from [facility]. Pre-op evaluation 04/28/2012 05/01/2012 Overview: Preoperative evaluation for CABG. Not ReDo -Carotids: Ordered -Vein Mapping: Ordered -Bedside PFTs: Ordered -Formal TTE: Ordered -CXR: Completed documented as of this encounter (statuses as of 11/29/2022) [facility] History of Past illness Narrative* Problem [...] 56, Troponin T .37 on admission to [facility] Wide-complex tachycardia 04/28/2012 012 Overview: Presented to OSH 04/28/12 in setting acute AK with wide complex tachycardia SVT versus VT. Given adenosine x2 without effect, diltiazem bolus and infusion with no effect. Spontaneous conversion to NSR. Had short run of wide complex tachycardia upon arrival to [facility] from [facility]. Pre-op evaluation 04/28/2012 05/01/2012 Overview: Preoperative evaluation for CABG. Not ReDo -Carotids: Ordered -Vein Mapping: Ordered -Bedside PFTs: Ordered -Formal TTE: Ordered -CXR: Completed documented as of this encounter (statuses as of 11/30/2022) [facility] History of Past illness Narrative* Problem [...] 56, Troponin T .37 on admission to [facility] Wide-complex tachycardia 04/28/2012 012 Overview: Presented to OSH 04/28/12 in setting acute AK with wide complex tachycardia SVT versus VT. Given adenosine x2 without effect, diltiazem bolus and infusion with no effect. Spontaneous conversion to NSR. Had short run of wide complex tachycardia upon arrival to [facility] from [facility]. Pre-op evaluation 04/28/2012 05/01/2012 Overview: Preoperative evaluation for CABG. Not ReDo -Carotids: Ordered -Vein Mapping: Ordered -Bedside PFTs: Ordered -Formal TTE: Ordered -CXR: Completed documented as of this encounter (statuses as of 12/03/2022) [facility] History of Past illness Narrative* Problem [...] 56, Troponin T .37 on admission to [facility] Wide-complex tachycardia 04/28/2012 012 Overview: Presented to OSH 04/28/12 in setting acute AK with wide complex tachycardia SVT versus VT. Given adenosine x2 without effect, diltiazem bolus and infusion with no effect. Spontaneous conversion to NSR. Had short run of wide complex tachycardia upon arrival to [facility] from [facility]. Pre-op evaluation 04/28/2012 05/01/2012 Overview: Preoperative evaluation for CABG. Not ReDo -Carotids: Ordered -Vein Mapping: Ordered -Bedside PFTs: Ordered -Formal TTE: Ordered -CXR: Completed documented as of this encounter (statuses as of 02/21/2023) [facility] History of Past illness Narrative* Problem [...] 56, Troponin T .37 on admission to [facility] Wide-complex tachycardia 04/28/2012 Overview: Presented to OSH 04/28/12 in setting acute AK with wide complex tachycardia SVT versus VT. Given adenosine x2 without effect, diltiazem bolus and infusion with no effect. Spontaneous conversion to NSR. Had short run of wide complex tachycardia upon arrival to [facility] from [facility]. Pre-op evaluation 04/28/2012 05/01/2012 Overview: Preoperative evaluation for CABG. Not ReDo -Carotids: Ordered -Vein Mapping: Ordered -Bedside PFTs: Ordered -Formal TTE: Ordered -CXR: Completed documented as of this encounter (statuses as of 04/27/2023) [facility]08-[facility]-2012 History of Past illness Narrative* Problem [...] 56, Troponin T .37 on admission to [facility] Wide-complex tachycardia 04/28/2012 Overview: Presented to OSH 04/28/12 in setting acute AK with wide complex tachycardia SVT versus VT. Given adenosine x2 without effect, diltiazem bolus and infusion with no effect. Spontaneous conversion to NSR. Had short run of wide complex tachycardia upon arrival to [facility] from [facility]. Pre-op evaluation 04/28/2012 05/01/2012 Overview: Preoperative evaluation for CABG. Not ReDo -Carotids: Ordered -Vein Mapping: Ordered -Bedside PFTs: Ordered -Formal TTE: Ordered -CXR: Completed documented as of this encounter (statuses as of 05/09/2023) [facility]2012 History of Past illness Narrative* Problem [...] 56, Troponin T .37 on admission to [facility] Wide-complex tachycardia 04/28/2012 Overview: Presented to OSH 04/28/12 in setting acute AK with wide complex tachycardia SVT versus VT. Given adenosine x2 without effect, diltiazem bolus and infusion with no effect. Spontaneous conversion to NSR. Had short run of wide complex tachycardia upon arrival to [facility] from [facility]. Pre-op evaluation 04/28/2012 05/01/2012 Overview: Preoperative evaluation for CABG. Not ReDo -Carotids: Ordered -Vein Mapping: Ordered -Bedside PFTs: Ordered -Formal TTE: Ordered -CXR: Completed documented as of this encounter (statuses as of 08/23/2023) [facility]2012 History of Past illness Narrative* Problem [...] 56, Troponin T .37 on admission to [facility] Wide-complex tachycardia 04/28/2012 Overview: Presented to OSH 04/28/12 in setting acute AK with wide complex tachycardia SVT versus VT. Given adenosine x2 without effect, diltiazem bolus and infusion with no effect. Spontaneous conversion to NSR. Had short run of wide complex tachycardia upon arrival to [facility] from [facility]. Pre-op evaluation 04/28/2012 05/01/2012 Overview: Preoperative evaluation for CABG. Not ReDo -Carotids: Ordered -Vein Mapping: Ordered -Bedside PFTs: Ordered -Formal TTE: Ordered -CXR: Completed documented as of this encounter (statuses as of 08/27/2023) [facility] Malignant neoplasm of prostate (HCC)- Primary Malignant neoplasm of prostate [facility] Diagnosis Unspecified hypothyroidism- Primary Hypercholesterolemia Pure hypercholesterolemia Abnormal finding of blood chemistry, unspecified [facility]* Diagnosis Malignant neoplasm of prostate (HCC)- Primary Malignant neoplasm of prostate [facility]* Diagnosis Chronic systolic heart failure (HCC)- Primary Chronic systolic heart failure [facility]* Diagnosis Mitral valve insufficiency, unspecified etiology- Primary Chronic systolic heart failure (HCC) Chronic systolic heart failure [facility]* Diagnosis Bilateral carotid artery stenosis- Primary Occlusion and stenosis of carotid artery without mention of cerebral infarction [facility]* Diagnosis 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- Primary Heart failure, [...] stenosis, asymptomatic, bilateral [facility]* Diagnosis Chronic systolic heart failure (HCC)- Primary Chronic systolic heart failure 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 [facility]* Diagnosis Malignant neoplasm of prostate (HCC)- Primary Malignant neoplasm of prostate [facility]* Diagnosis Chronic systolic heart failure (HCC) Chronic systolic heart failure 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 [facility]* Diagnosis 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- Primary Heart failure, acute systolic (HCC) Acute systolic heart failure Preop testing Preoperative examination, unspecified Carotid stenosis, asymptomatic, bilateral Preoperative cardiovascular examination Pre-operative cardiovascular examination [facility]* Diagnosis 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 kidney disease, unspecified CKD stage, unspecified whether correction insulin use (HCC)- Primary PVD (peripheral vascular disease) (HCC) Peripheral vascular disease, unspecified 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 ([facility]) documented [facility] this encounter [facility]* Diagnosis Chronic 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)- Primary Chronic combined systolic and diastolic heart failure 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 Essential hypertension Unspecified essential hypertension Hx of CABG Postsurgical aortocoronary bypass status Mixed hyperlipidemia Systolic heart failure, unspecified HF chronicity (HCC) 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 kidney disease, unspecified CKD stage, unspecified whether correction insulin use ([facility]) PVD (peripheral vascular disease) ([facility]) Peripheral vascular disease, unspecified 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) Mitral valve insufficiency, unspecified etiology [facility]* Diagnosis Atherosclerosis of [place] coronary artery, unspecified whether angina present, unspecified whether ekuk or transplanted heart- Primary [facility]* Diagnosis Mitral valve insufficiency, unspecified etiology- Primary HFrEF (heart failure with reduced ejection fraction) ([facility]) Heart failure, unspecified SOB (shortness of breath) Shortness of breath Hx of CABG 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 Essential hypertension Unspecified essential hypertension documented [facility] this [facility]* Diagnosis Severe mitral regurgitation- Primary Mitral valve disorders Cardiomyopathy, ischemic Other specified forms of chronic ischemic heart disease S/P CABG (coronary artery bypass graft) Postsurgical aortocoronary bypass status Sore throat Acute pharyngitis Unspecified severe protein-calorie malnutrition (HCC) documented in this encounter [facility]* Diagnosis IRB [id number] [facility] Assessment of the CARILLON Mitral Contour System in Treating Functional Mitral Regurgitation Associated with Heart Failure PI: Hussein- Primary documented in this encounter [facility]* Diagnosis Study name: EMPOWER Trial IRB# [id number] Primary documented [facility] this encounter [facility]* Diagnosis 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)- Primary Coronary artery disease involving coronary bypass graft of [place] heart with angina pectoris (HCC) Chronic systolic [...] protein-calorie malnutrition (HCC) [facility]* Diagnosis [id number] [facility] Study- Primary [facility]* Diagnosis EMPOWER Trial IRB# [id number] Screening visit- Primary Examination of participant in clinical trial [facility]* Diagnosis Severe mitral regurgitation- Primary Mitral valve disorders Examination of participant in clinical trial SANTILLAN (dyspnea on exertion) Other dyspnea and respiratory abnormality [facility]* Diagnosis Mitral valve insufficiency, unspecified etiology- Primary [facility]* Diagnosis Mitral valve insufficiency, unspecified etiology- Primary [facility]* Diagnosis Acute decompensated heart failure (HCC) Congestive heart failure, unspecified Mitral valve insufficiency, unspecified etiology [facility]* Diagnosis 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)- Primary [facility]* Diagnosis Dental caries- Primary Unspecified dental caries Pre-operative clearance Preoperative examination, unspecified Non-rheumatic mitral regurgitation Mitral valve disorders Severe mitral regurgitation Mitral valve disorders [facility]* Diagnosis Severe mitral regurgitation- Primary Mitral valve disorders Status post implantation of mitral valve leaflet clip [facility]* Diagnosis 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 [facility]* Diagnosis Cerebrovascular accident (CVA) due to other mechanism ([facility])- Primary Cataract, nuclear sclerotic senile, bilateral [facility]* Diagnosis 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 Carotid stenosis, 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, left Atrial fibrillation, unspecified type ([facility]) Mixed hyperlipidemia Essential hypertension Unspecified essential hypertension [facility]* Diagnosis Cardiomyopathy, ischemic- Primary Other specified forms of chronic ischemic heart disease S/P mitral valve clip implantation Stage 3b chronic kidney disease (HCC) [facility]* Diagnosis 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- Primary Chronic systolic heart failure (HCC) Chronic systolic heart failure S/P CABG (coronary artery bypass graft) Postsurgical aortocoronary bypass status Non-rheumatic mitral regurgitation Mitral valve disorders Severe mitral regurgitation Mitral valve disorders [facility]* Diagnosis History of prostate cancer- Primary Personal history of malignant neoplasm of prostate documented [facility]* Diagnosis Chronic systolic heart failure (HCC)- Primary Chronic systolic heart failure Non-rheumatic mitral regurgitation Mitral valve disorders [facility]* Diagnosis SANTILLAN (dyspnea on exertion)- Primary Other dyspnea and respiratory abnormality Mitral valve insufficiency, unspecified etiology [facility]* Diagnosis Frequent PVCs- Primary Other premature beats [facility]* Diagnosis PVC (premature ventricular contraction)- Primary Other premature beats [facility]* Diagnosis PVC (premature ventricular contraction)- Primary Other premature beats [facility]* Diagnosis Carotid stenosis, 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, left- Primary Pacemaker reprogramming/check Fitting and adjustment of cardiac pacemaker [facility]* Diagnosis Frequent PVCs Other premature beats Pacemaker reprogramming/check Fitting and adjustment of cardiac pacemaker [facility] Diagnosis Frequent PVCs- Primary Other premature beats Heart failure, acute systolic (HCC) Acute systolic heart failure 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) Carotid stenosis, 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, left 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 Acute on chronic systolic congestive heart failure (HCC) Acute on chronic systolic heart failure S/P CABG (coronary artery bypass graft) Postsurgical aortocoronary bypass status Paroxysmal atrial fibrillation (HCC) Atrial fibrillation Pacemaker reprogramming/check Fitting and adjustment of cardiac pacemaker [facility]* Diagnosis Pacemaker reprogramming/check Fitting and adjustment of cardiac pacemaker Pacemaker reprogramming/check Fitting and adjustment of cardiac pacemaker [facility]* Diagnosis Amaurosis fugax- Primary Transient arterial [...] of cardiac pacemaker [facility]* Diagnosis Heart failure, acute systolic (HCC)- Primary Acute systolic heart failure Acute on chronic systolic congestive heart failure (HCC) Acute on chronic systolic heart failure Carotid stenosis, 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, left Pacemaker reprogramming/check Fitting and adjustment of cardiac pacemaker [facility]* Diagnosis Chronic systolic heart failure (HCC)- Primary Chronic systolic heart failure Pacemaker reprogramming/check Fitting and adjustment of cardiac pacemaker documented [facility]* Diagnosis Heart failure, acute systolic (HCC)- Primary Acute systolic heart failure Pacemaker reprogramming/check Fitting and adjustment of cardiac pacemaker [facility]* Diagnosis S/P AVR (aortic valve replacement) Heart valve replaced by other means [facility] Diagnosis Dystrophic nail- Primary Other specified disease of nail Pain around toenail, right foot Pain around toenail, left foot Peripheral arterial disease (CMS/HCC) Unspecified peripheral vascular disease [facility] Diagnosis Chronic systolic (congestive) heart failure (HCC)- Primary End stage heart failure (HCC) [I50.84] Pacemaker reprogramming/check Fitting and adjustment of cardiac pacemaker documented [facility] chronically ill note* Diagnosis Hypothyroidism, unspecified type- Primary Pacemaker reprogramming/check Fitting and adjustment of cardiac pacemaker documented [facility] this [facility]el[facility]* Diagnosis 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- Primary 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 Acute on chronic systolic congestive heart failure (HCC) Acute on chronic systolic heart failure S/P CABG (coronary artery bypass graft) Postsurgical aortocoronary bypass status Cardiomyopathy, ischemic Other specified forms of chronic ischemic heart disease Frequent PVCs Other premature beats VT (ventricular tachycardia) ([facility]) Paroxysmal ventricular tachycardia ICD (implantable cardioverter-defibrillator) discharge Observation for other specified suspected conditions 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 kidney disease, unspecified CKD stage, unspecified whether watermelon inspector insulin use ([facility]) Stage 3b chronic kidney disease (HCC) Paroxysmal atrial fibrillation (HCC) Atrial fibrillation 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 (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) use of anticoagulants Long-term (current) use of anticoagulants documented [facility] this [facility] Diagnosis Pacemaker reprogramming/check Fitting and adjustment of cardiac pacemaker documented in this encounter [facility]InstructionsNot on filedocumented in this encounterProPremier Health SystemInstructionsNot on filedocumented in this encounterProPremier Health SystemInstructionsNot on filedocumented in this encounterProPremier Health SystemInstructionsNot on filedocumented in this encounterProPremier Health System InstructionsNot on filedocumented in this encounterProKindred Hospital DaytonReason for referral (narrative)* Outpatient Procedure (Routine) - Authorized Specialty Diagnoses / Procedures Referred By Jordon t Referred To Contact [facility] [place] Diagnoses Chronic systolic heart failure (HCC) Procedures ECHO ECHO TTHRC R-T 2D W/WOM-MODE COMPL SPEC&COLR D Zahra Pierre MD [address] [place] [address] [place] [address] Referral ID Status Reason Start Date Expiration Date Visits Requested Visits Authorized [id number] Authorized Auto-Generat ed Referral 06/06/2022 06/06/2023 1 1 * Outpatient Procedure (Routine) - Authorized Specialty Diagnoses / Procedures Referred By Jordon rao Referred To Contact [facility] Diagnoses Chronic systolic heart failure (HCC) Procedures ECG COMPLETE ECG ROUTINE ECG W/LEAST 12 LDS W/I&R Zahra Pierre MD [address] [place] [address] [place] [address] Referral ID Status Reason Start Date Expiration Date Visits Requested Visits Authorized [id number] Authorized Auto-Generat ed Referral 06/06/2022 06/06/2023 1 1 [facility] for referral (narrative)* Outpatient Procedure (Routine) - Authorized Specialty Diagnoses / Procedures Referred By Jordon rao Referred To Contact [facility] Diagnoses Bilateral carotid artery stenosis Procedures US CAROTID ARTERIES [facility] DUPLEX SCAN EXTRACRANIAL ART COMPL BI STUDY John Jefferson MD [address] [place] [address] [facility] [place] [address] Referral ID Status Reason Start Date Expiration Date Visits Requested Visits Authorized [id number] Authorized Auto-Generat ed Referral 2 08/03/2023 1 1 [facility] for referral (narrative)* Diagnostic Procedure Only (Routine) - Pending Review Specialty Diagnoses / Procedures Referred By Contac t Referred To Contact [facility] Diagnoses Chronic systolic heart failure (HCC) 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 Procedures NM PET/CT CARDIAC VIABILITY MYOCRD IMG PET PRFUJ W/METAB 2RTRACER CNCRNT CT Zahra Pierre MD [address] [place] [address] [facility] [address] [place] [address] Referral ID Status Reason Start Date Expiration Date Visits Requested Visits Authorized [id number] Pending Review Auto-Generat ed Referral 2 10/06/2023 1 1 * Diagnostic Procedure Only (Routine) - Pending Review Specialty Diagnoses / Procedures Referred By Contac Referred To Contact [facility] Diagnoses Chronic systolic heart failure (HCC) 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 Procedures NM PET/CT CARDIAC PERF REST/STRESS MYOCRD IMG PET PRFUJ DATA WAREHOUSING SPECIALIST STD RST & STRS CNCRNT CT Zahra Pierre MD [address] [place] [address] Molecular [facility] [address] [place] [address] Referral ID Status Reason Start Date Expiration Date Visits Requested Visits Authorized [id number] Pending Review Auto-Generat ed Referral 2 10/06/2023 1 1 [facility] for referral (narrative)* Diagnostic Procedure Only (Routine) - Closed Specialty Diagnoses / Procedures Referred By Jordon rao Referred To Contact [facility] Diagnoses Chronic systolic heart failure (HCC) 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 Procedures NM PET/CT CARDIAC VIABILITY MYOCRD IMG PET PRFUJ W/METAB 2RTRACER [facility] CT Zahra Pierre MD [address] [place] [address] Molecular [facility] Imaging [address] [place] [address] Referral ID Status Reason Start Date Expiration Date V isits Requested Visits Authorized [id number] Closed Auto-Generate d Referral 09/06/2022 10/06/2023 1 1 * Diagnostic Procedure Only (Routine) - Closed Specialty Diagnoses / Procedures Referred By Jordon rao Referred To Contact [facility] Diagnoses Chronic systolic heart failure (HCC) 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 Procedures NM PET/CT CARDIAC PERF REST/STRESS MYOCRD IMG PET PRFUJ DATA WAREHOUSING SPECIALIST STD RST & STRS [facility] Zahra Pierre MD [address] [place] [address] Molecular & Functional Imaging [address] [place] [address] Referral ID Status Reason Start Date Expiration Date V isits Requested Visits Authorized [id number] Closed Auto-Generate d Referral 09/06/2022 10/06/2023 1 1 [facility] for referral (narrative)* Outpatient Procedure (Routine) - Authorized Specialty Diagnoses / Procedures [facility] Referred To [facility] Diagnoses Chronic 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) Procedures ECHO ECHO TTHRC R-T 2D W/WOM-MODE COMPL SPEC&[place] [address] [place] [address]/[address] [place] [address] [facility] [address] [place] [address] Referral ID Status Reason Start Date Expiration Date Visits Requested Visits Authorized [id number] Authorized Auto-Generat ed Referral 10/30/2023 10/29/2024 1 1 * Outpatient Procedure (Routine) - Authorized Specialty Diagnoses / Procedures Referred By Contac t Referred To Contact [facility] [place] [facility] Diagnoses Chronic 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) Procedures ECG COMPLETE ECG ROUTINE ECG W/LEAST 12 LDS W/I&R Virgil Carrillo MD [address] [place] [address] [facility] [address] [place] [address] Referral ID Status Reason Start Date Expiration Date Visits Requested Visits Authorized [id number] Authorized Auto-Generat ed Referral 10/30/2023 10/29/2024 1 1 * Transition of Care (Routine) - Ref Not Required Specialty Diagnoses / Procedures Referred By Jordon t Referred To Contact Procedures CARDIOVASCULAR MEDICINE OP FOLLOW UP APPT ORDER Virgil Carrillo MD [address] [place] [id number] Referral ID Status Reason Start Date Expiration Date Visits Requested Visits Authorized [id number] Ref Not Required PCP Requested Referral 01/28/2024 10/29/2024 1 1 [facility] for referral (narrative)* Outpatient Procedure (Routine) - Pending Review Specialty Diagnoses / Procedures Referred By Jordon t Referred To Contact [facility] [place] Diagnoses Atherosclerosis of ekuk coronary artery, unspecified whether angina present, unspecified whether ekuk or transplanted heart Procedures ECHO ECHO TTHRC R-T 2D W/WOM-MODE COMPL SPEC&COLR D Virgil Carrillo MD [address] [place] [address] [facility] [address] [place] [address] Referral ID Status Reason Start Date Expiration Date Visits Requested Visits Authorized [id number] Pending Review Auto-Generat ed Referral 11/26/2023 11/25/2024 1 1 * Outpatient Procedure (Routine) - Authorized Specialty Diagnoses / Procedures Referred By Contac t Referred To Contact [facility] [place] Diagnoses Atherosclerosis of ekuk coronary artery, unspecified whether angina present, unspecified whether ekuk or transplanted heart Procedures ECG COMPLETE ECG ROUTINE ECG W/LEAST 12 LDS W/I&R Virgil Carrillo MD [address] [place] [address] [facility] [address] [place] [address] Referral ID Status Reason Start Date Expiration Date Visits Requested Visits Authorized [id number] Authorized Auto-Generat ed Referral 11/26/2023 11/25/2024 1 1 [facility] for referral (narrative)* Outpatient Procedure (Routine) - Pending Review Specialty Diagnoses / Procedures Referred By Contac t Referred To Contact [facility] Diagnoses HFrEF (heart failure with reduced ejection fraction) (HCC) Mitral valve insufficiency, unspecified etiology Procedures ECHO ECHO TTHRC R-T 2D W/WOM-MODE COMPL SPEC&COLR D Carmelina Ramos, SHAREPOINT APPLICATION ARCHITECT.DOROTHY [address] [place] [address] [facility] [address] [place] [address] Referral ID Status Reason Start Date Expiration Date Visits Requested Visits Authorized [id number] Pending Review Auto-Generat ed Referral 12/23/2023 12/22/2024 1 1 Electronically signed by Carmelina Ramos SHAREPOINT APPLICATION ARCHITECT.RUBBER COMPOUNDER FORMULATOR at 12/23/2023 11:39 PM EDT * Outpatient Procedure (Routine) - Pending Review Specialty Diagnoses / Procedures Referred By Contac t Referred To Contact [facility] Diagnoses HFrEF (heart failure with reduced ejection fraction) (HCC) Mitral valve insufficiency, unspecified etiology Procedures ECG COMPLETE ECG ROUTINE ECG W/LEAST 12 LDS W/I&R Carmelina Ramos APRN.CNP [address] [place] [address] [place] [id number] Referral ID Status Reason Start Date Expiration Date Visits Requested Visits Authorized [id number] Pending Review Auto-Generat ed Referral 12/23/2023 12/22/2024 1 1 * Transition of Care (Routine) - Ref Not Required Specialty Diagnoses / Procedures Referred By Contac t Referred To Contact [facility] Diagnoses Mitral valve insufficiency, unspecified etiology Procedures CARDIOVASCULAR MEDICINE OP FOLLOW UP APPT ORDER Carmelina Ramos APRN.CNP [address] [place] [id number] [address] Referral ID Status Reason Start Date Expiration Date Visits Requested Visits Authorized [id number] Ref Not Required PCP Requested Referral 03/23/2024 12/22/2024 1 1 [facility] for referral (narrative)* Outpatient Procedure (Routine) - Pending Review Specialty Diagnoses / Procedures Referred By Contac t Referred To Contact [facility] Diagnoses Severe mitral regurgitation Cardiomyopathy, ischemic S/P CABG (coronary artery bypass graft) Procedures ECHO ECHO TTHRC R-T 2D W/WOM-MODE COMPL SPEC&COLR Efren Yoder MD [address] [place] [address] [address] Referral ID Status Reason Start Date Expiration Date Visits Requested Visits Authorized [id number] Pending Review Auto-Generat ed Referral 12/26/2023 12/25/2024 1 1 * Outpatient Procedure (Routine) - Pending Review Specialty Diagnoses / Procedures Referred By Morrisac t Referred To Contact [facility] [place] Diagnoses Severe mitral regurgitation Cardiomyopathy, ischemic S/P CABG (coronary artery bypass graft) Procedures ECG COMPLETE ECG ROUTINE ECG W/LEAST 12 LDS W/I&R Efren Brady MD [address] [place] [address] [address] Referral ID Status Reason Start Date Expiration Date Visits Requested Visits Authorized [id number] Pending Review Auto-Generat ed Referral 12/26/2023 12/25/2024 1 1 * Transition of Care (Routine) - Ref Not Required Specialty Diagnoses / Procedures Referred By Jordon t Referred To Contact [facility] Procedures CARDIOVASCULAR MEDICINE OP FOLLOW UP APPT ORDER Efren Brady MD [address] [place] [address] [address] Referral ID Status Reason Start Date Expiration Date Visits Requested Visits Authorized [id number] Ref Not Required PCP Requested Referral 03/26/2024 12/25/2024 1 1 * Consult, Test, Treat (Routine) - Authorized Specialty Diagnoses / Procedures Referred By Jordon t Referred To Contact Ent - Otolaryngology Diagnoses Sore throat Procedures CONSULT TO ENT OFFICE/OUTPATIENT [facility] 60 MINUTES Efren Brady MD [address] [place] [address] Referral ID Status Reason Start Date Expiration Date Visits Requested Visits Authorized [id number] Authorized PCP Requested Referral 12/26/2023 12/25/2024 1 1 [facility] Outpatient Procedure (Routine) - Authorized Specialty Diagnoses / Procedures Referred By Jordon rao Referred To Contact [facility] Diagnoses Severe mitral regurgitation Status post implantation of mitral valve leaflet clip Procedures ECG COMPLETE ECG ROUTINE ECG W/LEAST 12 LDS W/I&R Efren Brady MD [address] [place] [address] [address] Referral ID Status Reason Start Date Expiration Date Visits Requested Visits Authorized [id number] Authorized Auto-Generat ed Referral 02/27/2024 2025 1 1 * Outpatient Procedure (Routine) - Authorized Specialty Diagnoses / Procedures Referred By Jordon rao Referred To Contact [facility] Diagnoses Severe mitral regurgitation Status post implantation of mitral valve leaflet clip Procedures ECG COMPLETE ECG ROUTINE ECG W/LEAST 12 LDS W/I&R Efren Brady MD [address] [place] [address] [address] Referral ID Status Reason Start Date Expiration Date Visits Requested Visits Authorized [id number] Authorized Auto-Generat ed Referral 02/20/2024 2025 1 1 * Outpatient Procedure (Routine) - Authorized Specialty Diagnoses / Procedures Referred By Jordon rao Referred To Contact [facility] Diagnoses Severe mitral regurgitation Status post implantation of mitral valve leaflet clip Procedures ECHO ECHO TTHRC R-T 2D W/WOM-MODE COMPL SPEC&COLR D Efren Brady MD [address] [place] [address] [address] Referral ID Status Reason Start Date Expiration Date Visits Requested Visits Authorized [id number] Authorized Auto-Generat ed Referral 02/20/2024 2025 1 1 [facility] for referral (narrative)* Diagnostic Procedure Only (Routine) - Pending Review Specialty Diagnoses / Procedures Referred By Contac t Referred To Contact [facility] Diagnoses Carotid stenosis, 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, left Procedures US CAROTID BILATERAL Luís Skinner APRN.RUBBER COMPOUNDER FORMULATOR [address] [place] [id number] [facility] [place] [address] Referral ID Status Reason Start Date Expiration Date Visits Requested Visits Authorized [id number] Pending Review Auto-Generat ed Referral 03/18/2024 04/17/2025 1 1 [facility] for referral (narrative)* Outpatient Procedure (Routine) - New Request Specialty Diagnoses / Procedures Referred By Contac t Referred To Contact [facility] Diagnoses Frequent PVCs Procedures ECG COMPLETE ECG ROUTINE ECG W/LEAST 12 LDS W/I&R Nj Wei MD [address] [place] [address] [facility] [address] [place] [address] Referral ID Status Reason Start Date Expiration Date Visits Requested Visits Authorized [id number] New Request Auto-Generat ed Referral 07/27/2025 1 1 [facility] for referral (narrative)* Diagnostic Procedure Only (Routine) - New Request Specialty Diagnoses / Procedures Referred By Contac t Referred To Contact [facility] Diagnoses Carotid stenosis, 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, left Procedures US CAROTID BILATERAL Luís Skinner APRN.RUBBER COMPOUNDER FORMULATOR [address] [place] [address] [facility] [place] [address] Referral ID Status Reason Start Date Expiration Date Visits Requested Visits Authorized [id number] New Request Auto-Generat ed Referral 08/18/2024 09/17/2025 1 1 [facility] Outpatient Procedure (Routine) - Closed Specialty Diagnoses / Procedures Referred By Contac t Referred To Contact [facility] [place] Diagnoses Pacemaker reprogramming/check Procedures CARDIAC IMPLANTABLE DEVICE CHECK Card [facility] Main [address] [place] [address] [address] Referral ID Status Reason Start Date Expiration Date V isits Requested Visits Authorized [id number] Closed Auto-Generate d Referral 08/17/2024 08/17/2025 1 1 * Outpatient Procedure (Routine) - Closed Specialty Diagnoses / Procedures Referred By Contac t Referred To Contact [facility] [place] Diagnoses Pacemaker reprogramming/check Procedures CARDIAC IMPLANTABLE DEVICE CHECK Card [facility] Main [address] [place] [id number] [address] [address] Referral ID Status Reason Start Date Expiration Date V isits Requested Visits Authorized [id number] Closed Auto-Generate d Referral 08/17/2024 08/17/2025 1 1 [facility] for referral (narrative)* Transition of Care (Routine) - Authorized Specialty Diagnoses / Procedures Referred By Contac t Referred To Contact [facility] [place] Procedures CARDIOVASCULAR MEDICINE OP FOLLOW UP APPT ORDER Carmela Fernandes MD [address] [place] [address] Phone: tel: fax: [address] [address] Referral ID Status Reason Start Date Expiration Date Visits Requested Visits Authorized [id number] Authorized PCP Requested Referral 06/22/2025 12/21/2025 1 1 [facility] for referral (narrative)* Transition of Care (Routine) - Authorized Specialty Diagnoses / Procedures Referred By Contac t Referred To Contact [facility] [place] Procedures CARDIOVASCULAR MEDICINE OP FOLLOW UP APPT ORDER Nj Wei MD [address] [place] [address] Phone: tel: fax: [facility] [address] [place] [address] Referral ID Status Reason Start Date Expiration Date Visits Requested Visits Authorized [id number] Authorized PCP Requested Referral 12/01/2025 03/01/2026 1 1 [facility] for visit Narrative* Outpatient Procedure (Routine) - Closed Specialty Diagnoses / Procedures Referred By Contac t Referred To Contact [facility] [place] Diagnoses Pacemaker reprogramming/check Procedures CARDIAC IMPLANTABLE DEVICE CHECK [facility] Main [address] [place] [address] [address] Referral ID Status Reason Start Date Expiration Date V isits Requested Visits Authorized [id number] Closed Auto-Generate d Referral 08/17/2024 08/17/2025 1 1 [facility] for visit Narrative* Consultation (Routine) - Authorized Specialty Diagnoses / Procedures Referred By Contac t Referred To Contact Cardiac Rehabilitation Diagnoses Chronic heart failure, unspecified heart failure type (CMS-HCC) Procedures Ambulatory referral to Cardiac Rehabilitation ([facility]) Ref Prov, [place] [address] [facility] Cardiac Rehab Billing [address] [facility] [place] [address] Referral ID Status Reason Start Date Expiration Date Visits Requested Visits Authorized [id number] Authorized Specialty Services Required 06/18/2024 06/18/2025 36 36 [facility] for visit Narrative* Consultation (Routine) - Authorized Specialty Diagnoses / Procedures Referred By Contac t Referred To Contact Cardiac Rehabilitation Diagnoses S/P AVR (aortic valve replacement) Procedures Ambulatory referral to Cardiac Rehabilitation ([facility]) Samm Thompson MD [address] [place] [address] [facility] Cardiac Rehab Billing [address] [place] [address] Referral ID Status Reason Start Date Expiration Date Visits Requested Visits Authorized [id number] Authorized Specialty Services Required 06/24/2024 06/24/2025 36 36 [facility] for visit Narrative* Consultation (Routine) - Authorized Specialty Diagnoses / Procedures Referred By Jordon t Referred To Contact [facility] Diagnoses S/P AVR (aortic valve replacement) Procedures Ambulatory referral to Cardiac Rehabilitation (Non[facility]) Samm Thompson MD [address] [place] [address] Phone: tel: fax: [facility] - Cardiac Rehab [address] [place] [address] Phone: tel:[phone] fax:[phone] Referral ID Status Reason Start Date Expiration Date Visits Requested Visits Authorized [id number] Authorized Specialty Services Required 06/24/2024 06/24/2025 36 36 [facility] for visit Narrative* Outpatient Procedure (Routine) - Closed Specialty Diagnoses / Procedures Referred By Jordon Referred To Contact [facility] Diagnoses Pacemaker reprogramming/check Procedures CARDIAC IMPLANTABLE DEVICE CHECK Cardiology [address] [place] [address] Phone: tel: [facility] [address] [place] [address] Referral ID Status Reason Start Date Expiration Date V isits Requested Visits Authorized [id number] Closed Auto-Generate d Referral 08/19/2024 08/19/2025 1 1 [facility] Summary Purpose Family History No Family History Records FoundNo Family History Records FoundNo Family History Records FoundNo Family History Records FoundNo Family History Records FoundNo Family History Records FoundNo Family History Records FoundNo Family History Records FoundNo Family History Records FoundNo Family History Records FoundNo Family History Records Found Advance Directives Date Activated Date Inactivated Comments 09/18/2024 7:04 [...] Documents on File Type Date Recorded 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 Advance Directive(s) 03/24/2019 7:11 AM [...] 7:30 PM Date Activated Date Inactivated Comments 09/18/2024 7:04 AM 09/25/2024 5:02 PM Date Activated Date Inactivated Comments [...] [facility] Diagnoses 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) Coronary artery disease involving coronary bypass graft of ek[place] heart with angina pectoris (HCC) Chronic systolic heart failure (HCC) S/P CABG (coronary artery bypass graft) Chronic 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) Acute on chronic clinical systolic heart failure (HCC) Stage 3b chronic kidney disease (HCC) Ischemic cardiomyopathy Non-ischemic cardiomyopathy (HCC) Shortness of breath Procedures CARDIOVASCULAR MEDICINE OP FOLLOW UP APPT ORDER Paulina Fernandes MD [address] [place] [address] [address] Referral ID Status Reason Start Date Expiration Date Visits Requested Visits Authorized [id number] Ref Not Required PCP Requested Referral 01/10/2024 01/09/2025 1 1 Specialty Diagnoses / Procedures Referred By Contac t Referred To Contact Nephrology Diagnoses Stage 3b chronic kidney disease (HCC) Procedures CONSULT TO NEPHROLOGY OFFICE/OUTPATIENT [facility] 60 MINUTES Efren Brady MD [address] [place] [address] Referral ID Status Reason Start Date Expiration Date Visits Requested Visits Authorized [id number] Authorized PCP Requested Referral 03/30/2024 03/30/2025 1 1 Specialty Diagnoses / Procedures Referred By Contac t Referred To Contact [facility] Diagnoses Cardiomyopathy, ischemic S/P mitral valve clip implantation Procedures ECHO ECHO TTHRC R-T 2D W/WOM-MODE COMPL SPEC&COLR D Efren Brady MD [address] [place] [address] [address] Referral ID Status Reason Start Date Expiration Date Visits Requested Visits Authorized [id number] Authorized Auto-Generat ed Referral 03/30/2024 03/30/2025 1 1 Specialty Diagnoses / Procedures Referred By Contac t Referred To Contact [facility] Diagnoses Cardiomyopathy, ischemic S/P mitral valve clip implantation Procedures ECG COMPLETE ECG ROUTINE ECG W/LEAST 12 LDS W/I&R Efren Brady MD [address] [place] [address] [address] Referral ID Status Reason Start Date Expiration Date Visits Requested Visits Authorized [id number] Authorized Auto-Generat ed Referral 03/30/2024 03/30/2025 1 1 Specialty Diagnoses / Procedures Referred By Contac t Referred To Contact [facility] Procedures CARDIOVASCULAR MEDICINE OP FOLLOW UP APPT ORDER Efren Brady MD [address] [place] [id number] [facility] [place] [phone] Referral ID Status Reason Start Date Expiration Date Visits Requested Visits Authorized [id number] Ref Not Required PCP Requested Referral 09/30/2024 03/30/2025 1 1 Specialty Diagnoses / Procedures Referred By Contac t Referred To Contact Cardiology Diagnoses Cardiomyopathy, ischemic S/P mitral valve clip implantation Procedures CONSULT TO CARDIOLOGY OFFICE/OUTPATIENT [facility] 60 MINUTES Efren Brady MD [address] [place] [address] Referral ID Status Reason Start Date Expiration Date Visits Requested Visits Authorized [id number] Authorized PCP Requested Referral 03/30/2024 03/30/2025 1 1 Specialty Diagnoses / Procedures Referred By Contac t [facility] Procedures CARDIOVASCULAR MEDICINE OP FOLLOW UP APPT ORDER Carmela Fernandes MD [address] [place] [address] [facility] [place] [address] Referral ID Status Reason Start Date Expiration Date Visits Requested Visits Authorized [id number] Ref Not Required PCP Requested Referral 06/08/2025 1 1 Specialty Diagnoses / Procedures Referred By Contac t Referred To Contact CT IMAGING Diagnoses Lung nodules Procedures CT CHEST W IVCON CAT SCAN OF CHEST CONTRAST Victor M Duval MD [address] [place] [address] [place] [address] Ct [facility] [place] [address] Referral ID Status Reason Start Date Expiration Date V isits Requested Visits Authorized [id number] Closed Auto-Generate d Referral 09/05/2021 10/05/2022 1 1 Specialty Diagnoses / Procedures Referred By Contac t Referred [facility] Procedures CARDIOVASCULAR MEDICINE [place] [address] [place], [place] [id number] [address] [address] Referral ID Status Reason Start Date Expiration Date Visits Requested Visits Authorized [id number] Ref Not Required PCP Requested Referral 05/21/2025 08/19/2025 1 1 Specialty Diagnoses / Procedures Referred By Contac t Referred To Contact [facility] Diagnoses Frequent PVCs Procedures LUNG DIFFUSION CAPACITY (DLCO) DIFFUSING CAPACITY Nj Wei MD [address] [place] [address] [facility] [place] [address] [place] [address] Referral ID Status Reason Start Date Expiration Date Visits Requested Visits Authorized [id number] New Request Auto-Generat ed Referral 08/19/2024 09/18/2025 1 1 [facility]ty Diagnoses / [facility] Diagnoses Frequent PVCs Procedures SPIROMETRY BASELINE ONLY SPMTRY W/VC EXPIRATORY DANIEL W/WO MXML VOL VNTJ Nj Wei MD [address] [place] [address] [address] Referral ID Status Reason Start Date Expiration Date Visits Requested Visits Authorized [id number] New Request Auto-Generat ed Referral 08/19/2024 09/18/2025 1 1 Specialty Diagnoses / [facility] [place] Diagnoses Amaurosis fugax Heart failure, acute systolic (HCC) Acute on chronic systolic congestive heart failure (HCC) PVD (peripheral vascular disease) (HCC) S/P CABG (coronary artery bypass graft) Procedures CARDIOVASCULAR MEDICINE OP FOLLOW UP APPT ORDER Carmela Fernandes MD [address] [place] [address] [address] [address] [address] Referral ID Status Reason Start Date Expiration Date Visits Requested Visits Authorized [id number] Ref Not Required PCP Requested Referral 08/19/2024 08/19/2025 1 1 Additional Source Comments (unrecognized sect ion and content) No Status Records FoundNo Status Records FoundNo Status Records FoundNo Status Records FoundNo Status Records FoundNo Status Records FoundNo Status Records FoundNo Status Records FoundNo Status Records FoundNo Status Records FoundNo Status Records Found INFORMATION SOURCE (unrecogn ized section and content) DATE CREATED AUTHOR 07/29/2019 Monty Bateman [facility] DATE CREATED AUTHOR AUTHOR'S ORGANIZ ATION 05/25/2022 [facility] DATE CREATED AUTHOR AUTHOR'S ORGANIZ ATION 02/22/2023 [facility] DATE CREATED AUTHOR AUTHOR'S ORGANIZ ATION 04/17/2024 [facility] DATE CREATED AUTHOR AUTHOR'S ORGANIZ ATION 05/13/2024 [facility] DATE CREATED AUTHOR AUTHOR'S ORGANIZ ATION 11/01/2024 [facility] DATE CREATED AUTHOR AUTHOR'S ORGANIZ ATION 11/14/2024 [facility] DATE CREATED AUTHOR AUTHOR'S ORGANIZ ATION 11/20/2024 [facility] DATE CREATED AUTHOR AUTHOR'S ORGANIZ ATION 12/05/2024 [facility] DATE CREATED AUTHOR AUTHOR'S ORGANIZ ATION 02/23/2025 [facility] DATE CREATED AUTHOR AUTHOR'S ORGANIZ ATION 03/02/2025 [facility] Source Comments (unrecognize d section and content) In the event this informatio n is protected by the Federal Confidentiality of Alcohol and Drug Abuse Patient Records regulations: The Federal rules restrict any use of the information to criminally investigate or prosecute any alcohol or drug abuse patient.[facility] the event this information is protected by the Federal Confidentiality of Alcohol and Drug Abuse Patient Records regulations: The Federal rules restrict any use of the information to criminally investigate or prosecute any alcohol or drug abuse patient.[facility] CenterIn the event this information is protected by the Federal Confidentiality of Alcohol and Drug Abuse Patient Records regulations: The Federal rules restrict any use of the information to criminally investigate or prosecute any alcohol or drug abuse patient.[facility] CenterIn the event this information is protected by the Federal Confidentiality of Alcohol and Drug Abuse Patient Records regulations: The Federal rules restrict any use of the information to criminally investigate or prosecute any alcohol or drug abuse patient.[facility] CenterIn the event this information is protected by the Federal Confidentiality of Alcohol and Drug Abuse Patient Records regulations: The Federal rules restrict any use of the information to criminally investigate or prosecute any alcohol or drug abuse patient.[facility] CenterIn the event this information is protected by the Federal Confidentiality of Alcohol and Drug Abuse Patient Records regulations: The Federal rules restrict any use of the information to criminally investigate or prosecute any alcohol or drug abuse patient.[facility] CenterIn the event this information is protected by the Federal Confidentiality of Alcohol and Drug Abuse Patient Records regulations: The Federal rules restrict any use of the information to criminally investigate or prosecute any alcohol or drug abuse patient.[facility] CenterIn the event this information is protected by the Federal Confidentiality of Alcohol and Drug Abuse Patient Records regulations: The Federal rules restrict any use of the information to criminally investigate or prosecute any alcohol or drug abuse patient.[facility] CenterIn the event this information is protected by the Federal Confidentiality of Alcohol and Drug Abuse Patient Records regulations: The Federal rules restrict any use of the information to criminally investigate or prosecute any alcohol or drug abuse patient.[facility] CenterIn the event this information is protected by the Federal Confidentiality of Alcohol and Drug Abuse Patient Records regulations: The Federal rules restrict any use of the information to criminally investigate or prosecute any alcohol or drug abuse patient.[facility] CenterIn the event this information is protected by the Federal Confidentiality of Alcohol and Drug Abuse Patient Records regulations: The Federal rules restrict any use of the information to criminally investigate or prosecute any alcohol or drug abuse patient.[facility] CenterIn the event this information is protected by the Federal Confidentiality of Alcohol and Drug Abuse Patient Records regulations: The Federal rules restrict any use of the information to criminally investigate or prosecute any alcohol or drug abuse patient.[facility] CenterIn the event this information is protected by the Federal Confidentiality of Alcohol and Drug Abuse Patient Records regulations: The Federal rules restrict any use of the information to criminally investigate or prosecute any alcohol or drug abuse patient.[facility] CenterIn the event this information is protected by the Federal Confidentiality of Alcohol and Drug Abuse Patient Records regulations: The Federal rules restrict any use of the information to criminally investigate or prosecute any alcohol or drug abuse patient.[facility] CenterIn the event this information is protected by the Federal Confidentiality of Alcohol and Drug Abuse Patient Records regulations: The Federal rules restrict any use of the information to criminally investigate or prosecute any alcohol or drug abuse patient.[facility] CenterIn the event this information is protected by the Federal Confidentiality of Alcohol and Drug Abuse Patient Records regulations: The Federal rules restrict any use of the information to criminally investigate or prosecute any alcohol or drug abuse patient.[facility] CenterIn the event this information is protected by the Federal Confidentiality of Alcohol and Drug Abuse Patient Records regulations: The Federal rules restrict any use of the information to criminally investigate or prosecute any alcohol or drug abuse patient.[facility] CenterIn the event this information is protected by the Federal Confidentiality of Alcohol and Drug Abuse Patient Records regulations: The Federal rules restrict any use of the information to criminally investigate or prosecute any alcohol or drug abuse patient.[facility] CenterIn the event this information is protected by the Federal Confidentiality of Alcohol and Drug Abuse Patient Records regulations: The Federal rules restrict any use of the information to criminally investigate or prosecute any alcohol or drug abuse patient.[facility] CenterIn the event this information is protected by the Federal Confidentiality of Alcohol and Drug Abuse Patient Records regulations: The Federal rules restrict any use of the information to criminally investigate or prosecute any alcohol or drug abuse patient.[facility] CenterIn the event this information is protected by the Federal Confidentiality of Alcohol and Drug Abuse Patient Records regulations: The Federal rules restrict any use of the information to criminally investigate or prosecute any alcohol or drug abuse patient.[facility] CenterIn the event this information is protected by the Federal Confidentiality of Alcohol and Drug Abuse Patient Records regulations: The Federal rules restrict any use of the information to criminally investigate or prosecute any alcohol or drug abuse patient.[facility] CenterIn the event this information is protected by the Federal Confidentiality of Alcohol and Drug Abuse Patient Records regulations: The Federal rules restrict any use of the information to criminally investigate or prosecute any alcohol or drug abuse patient.[facility] CenterIn the event this information is protected by the Federal Confidentiality of Alcohol and Drug Abuse Patient Records regulations: The Federal rules restrict any use of the information to criminally investigate or prosecute any alcohol or drug abuse patient.[facility] CenterIn the event this information is protected by the Federal Confidentiality of Alcohol and Drug Abuse Patient Records regulations: The Federal rules restrict any use of the information to criminally investigate or prosecute any alcohol or drug abuse patient.[facility] CenterIn the event this information is protected by the Federal Confidentiality of Alcohol and Drug Abuse Patient Records regulations: The Federal rules restrict any use of the information to criminally investigate or prosecute any alcohol or drug abuse patient.[facility] CenterIn the event this information is protected by the Federal Confidentiality of Alcohol and Drug Abuse Patient Records regulations: The Federal rules restrict any use of the information to criminally investigate or prosecute any alcohol or drug abuse patient.[facility] CenterIn the event this information is protected by the Federal Confidentiality of Alcohol and Drug Abuse Patient Records regulations: The Federal rules restrict any use of the information to criminally investigate or prosecute any alcohol or drug abuse patient.[facility] CenterIn the event this information is protected by the Federal Confidentiality of Alcohol and Drug Abuse Patient Records regulations: The Federal rules restrict any use of the information to criminally investigate or prosecute any alcohol or drug abuse patient.[facility] CenterIn the event this information is protected by the Federal Confidentiality of Alcohol and Drug Abuse Patient Records regulations: The Federal rules restrict any use of the information to criminally investigate or prosecute any alcohol or drug abuse patient.[facility] CenterIn the event this information is protected by the Federal Confidentiality of Alcohol and Drug Abuse Patient Records regulations: The Federal rules restrict any use of the information to criminally investigate or prosecute any alcohol or drug abuse patient.[facility] CenterIn the event this information is protected by the Federal Confidentiality of Alcohol and Drug Abuse Patient Records regulations: The Federal rules restrict any use of the information to criminally investigate or prosecute any alcohol or drug abuse patient.[facility] CenterIn the event this information is protected by the Federal Confidentiality of Alcohol and Drug Abuse Patient Records regulations: The Federal rules restrict any use of the information to criminally investigate or prosecute any alcohol or drug abuse patient.[facility] CenterIn the event this information is protected by the Federal Confidentiality of Alcohol and Drug Abuse Patient Records regulations: The Federal rules restrict any use of the information to criminally investigate or prosecute any alcohol or drug abuse patient.[facility] CenterIn the event this information is protected by the Federal Confidentiality of Alcohol and Drug Abuse Patient Records regulations: The Federal rules restrict any use of the information to criminally investigate or prosecute any alcohol or drug abuse patient.[facility] CenterIn the event this information is protected by the Federal Confidentiality of Alcohol and Drug Abuse Patient Records regulations: The Federal rules restrict any use of the information to criminally investigate or prosecute any alcohol or drug abuse patient.[facility] CenterIn the event this information is protected by the Federal Confidentiality of Alcohol and Drug Abuse Patient Records regulations: The Federal rules restrict any use of the information to criminally investigate or prosecute any alcohol or drug abuse patient.[facility] CenterIn the event this information is protected by the Federal Confidentiality of Alcohol and Drug Abuse Patient Records regulations: The Federal rules restrict any use of the information to criminally investigate or prosecute any alcohol or drug abuse patient.[facility] CenterIn the event this information is protected by the Federal Confidentiality of Alcohol and Drug Abuse Patient Records regulations: The Federal rules restrict any use of the information to criminally investigate or prosecute any alcohol or drug abuse patient.[facility] CenterIn the event this information is protected by the Federal Confidentiality of Alcohol and Drug Abuse Patient Records regulations: The Federal rules restrict any use of the information to criminally investigate or prosecute any alcohol or drug abuse patient.[facility] CenterIn the event this information is protected by the Federal Confidentiality of Alcohol and Drug Abuse Patient Records regulations: The Federal rules restrict any use of the information to criminally investigate or prosecute any alcohol or drug abuse patient.[facility] CenterIn the event this information is protected by the Federal Confidentiality of Alcohol and Drug Abuse Patient Records regulations: The Federal rules restrict any use of the information to criminally investigate or prosecute any alcohol or drug abuse patient.[facility] CenterIn the event this information is protected by the Federal Confidentiality of Alcohol and Drug Abuse Patient Records regulations: The Federal rules restrict any use of the information to criminally investigate or prosecute any alcohol or drug abuse patient.[facility] CenterIn the event this information is protected by the Federal Confidentiality of Alcohol and Drug Abuse Patient Records regulations: The Federal rules restrict any use of the information to criminally investigate or prosecute any alcohol or drug abuse patient.[facility] CenterIn the event this information is protected by the Federal Confidentiality of Alcohol and Drug Abuse Patient Records regulations: The Federal rules restrict any use of the information to criminally investigate or prosecute any alcohol or drug abuse patient.[facility] CenterIn the event this information is protected by the Federal Confidentiality of Alcohol and Drug Abuse Patient Records regulations: The Federal rules restrict any use of the information to criminally investigate or prosecute any alcohol or drug abuse patient.[facility] CenterIn the event this information is protected by the Federal Confidentiality of Alcohol and Drug Abuse Patient Records regulations: The Federal rules restrict any use of the information to criminally investigate or prosecute any alcohol or drug abuse patient.[facility] CenterIn the event this information is protected by the Federal Confidentiality of Alcohol and Drug Abuse Patient Records regulations: The Federal rules restrict any use of the information to criminally investigate or prosecute any alcohol or drug abuse patient.[facility] CenterIn the event this information is protected by the Federal Confidentiality of Alcohol and Drug Abuse Patient Records regulations: The Federal rules restrict any use of the information to criminally investigate or prosecute any alcohol or drug abuse patient.[facility] CenterIn the event this information is protected by the Federal Confidentiality of Alcohol and Drug Abuse Patient Records regulations: The Federal rules restrict any use of the information to criminally investigate or prosecute any alcohol or drug abuse patient.[facility] CenterIn the event this information is protected by the Federal Confidentiality of Alcohol and Drug Abuse Patient Records regulations: The Federal rules restrict any use of the information to criminally investigate or prosecute any alcohol or drug abuse patient.[facility] CenterIn the event this information is protected by the Federal Confidentiality of Alcohol and Drug Abuse Patient Records regulations: The Federal rules restrict any use of the information to criminally investigate or prosecute any alcohol or drug abuse patient.[facility] CenterIn the event this information is protected by the Federal Confidentiality of Alcohol and Drug Abuse Patient Records regulations: The Federal rules restrict any use of the information to criminally investigate or prosecute any alcohol or drug abuse patient.[facility] CenterIn the event this information is protected by the Federal Confidentiality of Alcohol and Drug Abuse Patient Records regulations: The Federal rules restrict any use of the information to criminally investigate or prosecute any alcohol or drug abuse patient.[facility] CenterIn the event this information is protected by the Federal Confidentiality of Alcohol and Drug Abuse Patient Records regulations: The Federal rules restrict any use of the information to criminally investigate or prosecute any alcohol or drug abuse patient.[facility] CenterIn the event this information is protected by the Federal Confidentiality of Alcohol and Drug Abuse Patient Records regulations: The Federal rules restrict any use of the information to criminally investigate or prosecute any alcohol or drug abuse patient.[facility] CenterIn the event this information is protected by the Federal Confidentiality of Alcohol and Drug Abuse Patient Records regulations: The Federal rules restrict any use of the information to criminally investigate or prosecute any alcohol or drug abuse patient.[facility] CenterIn the event this information is protected by the Federal Confidentiality of Alcohol and Drug Abuse Patient Records regulations: The Federal rules restrict any use of the information to criminally investigate or prosecute any alcohol or drug abuse patient.[facility] CenterIn the event this information is protected by the Federal Confidentiality of Alcohol and Drug Abuse Patient Records regulations: The Federal rules restrict any use of the information to criminally investigate or prosecute any alcohol or drug abuse patient.[facility] CenterIn the event this information is protected by the Federal Confidentiality of Alcohol and Drug Abuse Patient Records regulations: The Federal rules restrict any use of the information to criminally investigate or prosecute any alcohol or drug abuse patient.[facility] CenterIn the event this information is protected by the Federal Confidentiality of Alcohol and Drug Abuse Patient Records regulations: The Federal rules restrict any use of the information to criminally investigate or prosecute any alcohol or drug abuse patient.[facility] CenterIn the event this information is protected by the Federal Confidentiality of Alcohol and Drug Abuse Patient Records regulations: The Federal rules restrict any use of the information to criminally investigate or prosecute any alcohol or drug abuse patient.[facility] CenterIn the event this information is protected by the Federal Confidentiality of Alcohol and Drug Abuse Patient Records regulations: The Federal rules restrict any use of the information to criminally investigate or prosecute any alcohol or drug abuse patient.[facility] CenterIn the event this information is protected by the Federal Confidentiality of Alcohol and Drug Abuse Patient Records regulations: The Federal rules restrict any use of the information to criminally investigate or prosecute any alcohol or drug abuse patient.[facility] CenterIn the event this information is protected by the Federal Confidentiality of Alcohol and Drug Abuse Patient Records regulations: The Federal rules restrict any use of the information to criminally investigate or prosecute any alcohol or drug abuse patient.[facility] CenterIn the event this information is protected by the Federal Confidentiality of Alcohol and Drug Abuse Patient Records regulations: The Federal rules restrict any use of the information to criminally investigate or prosecute any alcohol or drug abuse patient.[facility] CenterIn the event this information is protected by the Federal Confidentiality of Alcohol and Drug Abuse Patient Records regulations: The Federal rules restrict any use of the information to criminally investigate or prosecute any alcohol or drug abuse patient.[facility] CenterIn the event this information is protected by the Federal Confidentiality of Alcohol and Drug Abuse Patient Records regulations: The Federal rules restrict any use of the information to criminally investigate or prosecute any alcohol or drug abuse patient.[facility] CenterIn the event this information is protected by the Federal Confidentiality of Alcohol and Drug Abuse Patient Records regulations: The Federal rules restrict any use of the information to criminally investigate or prosecute any alcohol or drug abuse patient.[facility] CenterIn the event this information is protected by the Federal Confidentiality of Alcohol and Drug Abuse Patient Records regulations: The Federal rules restrict any use of the information to criminally investigate or prosecute any alcohol or drug abuse patient.[facility] CenterIn the event this information is protected by the Federal Confidentiality of Alcohol and Drug Abuse Patient Records regulations: The Federal rules restrict any use of the information to criminally investigate or prosecute any alcohol or drug abuse patient.[facility] CenterIn the event this information is protected by the Federal Confidentiality of Alcohol and Drug Abuse Patient Records regulations: The Federal rules restrict any use of the information to criminally investigate or prosecute any alcohol or drug abuse patient.[facility] CenterIn the event this information is protected by the Federal Confidentiality of Alcohol and Drug Abuse Patient Records regulations: The Federal rules restrict any use of the information to criminally investigate or prosecute any alcohol or drug abuse patient.[facility] CenterIn the event this information is protected by the Federal Confidentiality of Alcohol and Drug Abuse Patient Records regulations: The Federal rules restrict any use of the information to criminally investigate or prosecute any alcohol or drug abuse patient.[facility] CenterIn the event this information is protected by the Federal Confidentiality of Alcohol and Drug Abuse Patient Records regulations: The Federal rules restrict any use of the information to criminally investigate or prosecute any alcohol or drug abuse patient.[facility] CenterIn the event this information is protected by the Federal Confidentiality of Alcohol and Drug Abuse Patient Records regulations: The Federal rules restrict any use of the information to criminally investigate or prosecute any alcohol or drug abuse patient.[facility] CenterIn the event this information is protected by the Federal Confidentiality of Alcohol and Drug Abuse Patient Records regulations: The Federal rules restrict any use of the information to criminally investigate or prosecute any alcohol or drug abuse patient.[facility] CenterIn the event this information is protected by the Federal Confidentiality of Alcohol and Drug Abuse Patient Records regulations: The Federal rules restrict any use of the information to criminally investigate or prosecute any alcohol or drug abuse patient.[facility] CenterIn the event this information is protected by the Federal Confidentiality of Alcohol and Drug Abuse Patient Records regulations: The Federal rules restrict any use of the information to criminally investigate or prosecute any alcohol or drug abuse patient.[facility] CenterIn the event this information is protected by the Federal Confidentiality of Alcohol and Drug Abuse Patient Records regulations: The Federal rules restrict any use of the information to criminally investigate or prosecute any alcohol or drug abuse patient.[facility] CenterIn the event this information is protected by the Federal Confidentiality of Alcohol and Drug Abuse Patient Records regulations: The Federal rules restrict any use of the information to criminally investigate or prosecute any alcohol or drug abuse patient.[facility] CenterIn the event this information is protected by the Federal Confidentiality of Alcohol and Drug Abuse Patient Records regulations: The Federal rules restrict any use of the information to criminally investigate or prosecute any alcohol or drug abuse patient.[facility] CenterIn the event this information is protected by the Federal Confidentiality of Alcohol and Drug Abuse Patient Records regulations: The Federal rules restrict any use of the information to criminally investigate or prosecute any alcohol or drug abuse patient.[facility] CenterIn the event this information is protected by the Federal Confidentiality of Alcohol and Drug Abuse Patient Records regulations: The Federal rules restrict any use of the information to criminally investigate or prosecute any alcohol or drug abuse patient.[facility] CenterIn the event this information is protected by the Federal Confidentiality of Alcohol and Drug Abuse Patient Records regulations: The Federal rules restrict any use of the information to criminally investigate or prosecute any alcohol or drug abuse patient.[facility] CenterIn the event this information is protected by the Federal Confidentiality of Alcohol and Drug Abuse Patient Records regulations: The Federal rules restrict any use of the information to criminally investigate or prosecute any alcohol or drug abuse patient.[facility] CenterIn the event this information is protected by the Federal Confidentiality of Alcohol and Drug Abuse Patient Records regulations: The Federal rules restrict any use of the information to criminally investigate or prosecute any alcohol or drug abuse patient.[facility] CenterIn the event this information is protected by the Federal Confidentiality of Alcohol and Drug Abuse Patient Records regulations: The Federal rules restrict any use of the information to criminally investigate or prosecute any alcohol or drug abuse patient.[facility] CenterIn the event this information is protected by the Federal Confidentiality of Alcohol and Drug Abuse Patient Records regulations: The Federal rules restrict any use of the information to criminally investigate or prosecute any alcohol or drug abuse patient.[facility] CenterIn the event this information is protected by the Federal Confidentiality of Alcohol and Drug Abuse Patient Records regulations: The Federal rules restrict any use of the information to criminally investigate or prosecute any alcohol or drug abuse patient.[facility] CenterIn the event this information is protected by the Federal Confidentiality of Alcohol and Drug Abuse Patient Records regulations: The Federal rules restrict any use of the information to criminally investigate or prosecute any alcohol or drug abuse patient.[facility] CenterIn the event this information is protected by the Federal Confidentiality of Alcohol and Drug Abuse Patient Records regulations: The Federal rules restrict any use of the information to criminally investigate or prosecute any alcohol or drug abuse patient.[facility] CenterIn the event this information is protected by the Federal Confidentiality of Alcohol and Drug Abuse Patient Records regulations: The Federal rules restrict any use of the information to criminally investigate or prosecute any alcohol or drug abuse patient.[facility] CenterIn the event this information is protected by the Federal Confidentiality of Alcohol and Drug Abuse Patient Records regulations: The Federal rules restrict any use of the information to criminally investigate or prosecute any alcohol or drug abuse patient.[facility] CenterIn the event this information is protected by the Federal Confidentiality of Alcohol and Drug Abuse Patient Records regulations: The Federal rules restrict any use of the information to criminally investigate or prosecute any alcohol or drug abuse patient.[facility] CenterIn the event this information is protected by the Federal Confidentiality of Alcohol and Drug Abuse Patient Records regulations: The Federal rules restrict any use of the information to criminally investigate or prosecute any alcohol or drug abuse patient.[facility] CenterIn the event this information is protected by the Federal Confidentiality of Alcohol and Drug Abuse Patient Records regulations: The Federal rules restrict any use of the information to criminally investigate or prosecute any alcohol or drug abuse patient.[facility] CenterIn the event this information is protected by the Federal Confidentiality of Alcohol and Drug Abuse Patient Records regulations: The Federal rules restrict any use of the information to criminally investigate or prosecute any alcohol or drug abuse patient.[facility] CenterIn the event this information is protected by the Federal Confidentiality of Alcohol and Drug Abuse Patient Records regulations: The Federal rules restrict any use of the information to criminally investigate or prosecute any alcohol or drug abuse patient.[facility] CenterIn the event this information is protected by the Federal Confidentiality of Alcohol and Drug Abuse Patient Records regulations: The Federal rules restrict any use of the information to criminally investigate or prosecute any alcohol or drug abuse patient.[facility] CenterIn the event this information is protected by the Federal Confidentiality of Alcohol and Drug Abuse Patient Records regulations: The Federal rules restrict any use of the information to criminally investigate or prosecute any alcohol or drug abuse patient.[facility] CenterIn the event this information is protected by the Federal Confidentiality of Alcohol and Drug Abuse Patient Records regulations: The Federal rules restrict any use of the information to criminally investigate or prosecute any alcohol or drug abuse patient.[facility] CenterIn the event this information is protected by the Federal Confidentiality of Alcohol and Drug Abuse Patient Records regulations: The Federal rules restrict any use of the information to criminally investigate or prosecute any alcohol or drug abuse patient.[facility] CenterIn the event this information is protected by the Federal Confidentiality of Alcohol and Drug Abuse Patient Records regulations: The Federal rules restrict any use of the information to criminally investigate or prosecute any alcohol or drug abuse patient.[facility] CenterIn the event this information is protected by the Federal Confidentiality of Alcohol and Drug Abuse Patient Records regulations: The Federal rules restrict any use of the information to criminally investigate or prosecute any alcohol or drug abuse patient.[facility] CenterIn the event this information is protected by the Federal Confidentiality of Alcohol and Drug Abuse Patient Records regulations: The Federal rules restrict any use of the information to criminally investigate or prosecute any alcohol or drug abuse patient.[facility] CenterIn the event this information is protected by the Federal Confidentiality of Alcohol and Drug Abuse Patient Records regulations: The Federal rules restrict any use of the information to criminally investigate or prosecute any alcohol or drug abuse patient.[facility] CenterIn the event this information is protected by the Federal Confidentiality of Alcohol and Drug Abuse Patient Records regulations: The Federal rules restrict any use of the information to criminally investigate or prosecute any alcohol or drug abuse patient.[facility] CenterIn the event this information is protected by the Federal Confidentiality of Alcohol and Drug Abuse Patient Records regulations: The Federal rules restrict any use of the information to criminally investigate or prosecute any alcohol or drug abuse patient.[facility] CenterIn the event this information is protected by the Federal Confidentiality of Alcohol and Drug Abuse Patient Records regulations: The Federal rules restrict any use of the information to criminally investigate or prosecute any alcohol or drug abuse patient.[facility] CenterIn the event this information is protected by the Federal Confidentiality of Alcohol and Drug Abuse Patient Records regulations: The Federal rules restrict any use of the information to criminally investigate or prosecute any alcohol or drug abuse patient.[facility] CenterIn the event this information is protected by the Federal Confidentiality of Alcohol and Drug Abuse Patient Records regulations: The Federal rules restrict any use of the information to criminally investigate or prosecute any alcohol or drug abuse patient.[facility] CenterIn the event this information is protected by the Federal Confidentiality of Alcohol and Drug Abuse Patient Records regulations: The Federal rules restrict any use of the information to criminally investigate or prosecute any alcohol or drug abuse patient.[facility] CenterIn the event this information is protected by the Federal Confidentiality of Alcohol and Drug Abuse Patient Records regulations: The Federal rules restrict any use of the information to criminally investigate or prosecute any alcohol or drug abuse patient.[facility] CenterIn the event this information is protected by the Federal Confidentiality of Alcohol and Drug Abuse Patient Records regulations: The Federal rules restrict any use of the information to criminally investigate or prosecute any alcohol or drug abuse patient.[facility] CenterIn the event this information is protected by the Federal Confidentiality of Alcohol and Drug Abuse Patient Records regulations: The Federal rules restrict any use of the information to criminally investigate or prosecute any alcohol or drug abuse patient.[facility] Reason for Visit (unrecogniz ed section and content) Reason Comments Radiotherapy On-treatment Visit Reason Comments Prostate Cancer Reason Comments Appointment Reason Comments Received Outside Medical Records Reason Comments Consult Reason Comments Radiology NM Specialty Diagnoses / Procedures Referred By Contac t Referred To Contact MOLECULAR & FUNCTIONAL IMAGING Diagnoses Chronic systolic heart failure (HCC) 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 Mitral Valve Transcatheter Crfb-eg-Hiqe Repair (M-AZAEL) w/ [employer] MitraClip Procedure on: 02/18/24 at 10:30 am Procedures TCAT MITRAL VALVE REPAIR INITIAL PROSTHESIS TRANSCATHETER MITRAL VALVE REPAIR PERCUTANEOUS INCLUDE TRANSSEPTAL PUNCTURE WHEN PERFORMED INITIAL PROSTHESIS IV Fluids/Drips, IV [facility] [id number] [place] [address] Referral ID Status Reason Start Date Expiration Date Visits Re quested Visits Authorized [id number] 1 1 Reason Comments Amaurosis fugax Reason Comments Patient Update Pre admission Reason Comments TIA Specialty Diagnoses / Procedures Referred By Contac t Referred To Contact Diagnoses TIA Procedures N/A [facility] [address] [place] [address] Referral ID Status Reason Start Date Expiration Date Visits Re quested Visits Authorized [id number] 1 1 Reason Comments Hospital Discharge Specialty Diagnoses / Procedures Referred By Contac t Referred To Contact [facility] Procedures CARDIOVASCULAR MEDICINE OP FOLLOW UP APPT ORDER Efren Brady MD [address] [place] [address] [place] [address] Referral ID Status Reason Start Date Expiration Date Visits Requested Visits Authorized [id number] Ref Not Required PCP Requested Referral 03/26/2024 [...] GAMALIEL IMRT 39 fractions Yung Andrade MD [address] [place] [address] [place] [address] Yung Andrade MD [address] [place] [address] [address] [place] [id number] Referral ID Status Reason Start Date Expiration Date Visits Re quested Visits Authorized [id number] Closed 10/12/2021 09/15/2022 [address] Specialty Diagnoses / Procedures Referred By Contac t Referred To Contact CT IMAGING Diagnoses Lung nodules Procedures CT CHEST W IVCON CAT SCAN OF CHEST CONTRAST Victor M Duval MD [address] [place] [address] [place] [address] Ct Imaging [id number] Referral ID Status Reason Start Date Expiration Date V isits Requested Visits Authorized [id number] Closed Auto-Generate d Referral 09/05/2021 10/05/2022 1 [...] Comments Advice Only Reason Comments Ventricular Tachycardia Reason Comments Toenail Care Pt is here today wit h his daughter for nail care, he is not diabetic. His last A1c 5.6SS: 11 Reason Comments Medication Question Reason Comments Counseling New order is needed for the patient to return to Cardiac Rehab at [facility]. Reason Comments Schedule Surgery [facility] Care Teams (unrecognized sec tion and content) Care Advocate Relationship Specialty Start Date End Date Samm Thompson MD PCP - General Family Practice 05/30/12 [facility] [address] [place] [address] Primary Staff Physician Cardiology 12/02/18 Care Advocate Relationship Specialty Start Date End Date Samm Thompson MD PCP - General Family Practice 05/30/12 Tom Gonzalez [address] [place] [address] Primary Staff Physician Cardiology 12/02/18 Care Advocate Relationship Specialty Start Date End Date Samm Thompson MD PCP - General Family Practice 05/30/12 [facility] [address] [place] [address] Primary Staff Physician Cardiology 12/02/18 Care Advocate Relationship Specialty Start Date End Date Samm Thompson MD PCP - General Family Practice 05/30/12 Tom Gonzalez [address] [place] [place] [address] Primary Staff Physician Cardiology 12/02/18 Care Advocate Relationship Specialty Start Date End Date Samm Thompson MD PCP - General Family Practice 05/30/12 [facility], Tom Vagesh [address] [place] [address] Primary Staff Physician Cardiology 12/02/18 Care Advocate Relationship Specialty Start Date End Date Samm Thompson MD PCP - General Family Practice 05/30/12 [facility], Tom Vagesh [address] [place] [address] Primary Staff Physician Cardiology 12/02/18 Care Advocate Relationship Specialty Start Date End Date Samm Thompson MD PCP - General Family Medicine 05/30/12 [facility] [address] [place] [address] Primary Staff Physician Cardiology 12/02/18 Care Advocate Relationship Specialty Start Date End Date Samm Thompson MD PCP - General Family Medicine 05/30/12 Tom Gonzalez Vagesh [address] [place] [address] Primary Staff Physician Cardiology 12/02/18 Care Advocate Relationship Specialty Start Date End Date Samm Thompson MD PCP - General Family Medicine 05/30/12 [place], Tom Vagesh [address] [place] [address] Primary Staff Physician Cardiology 12/02/18 Care Advocate Relationship Specialty Start Date End Date Samm Thompson MD PCP - General Family Medicine 05/30/12 [place], Tom Vagesh [address] [place] [address] Primary Staff Physician Cardiology 12/02/18 Care Advocate Relationship Specialty Start Date End Date Samm Thompson MD PCP - General Family Medicine 05/30/12 [place], Tom Vagesh [address] [place] [address] Primary Staff Physician Cardiology 12/02/18 Care Advocate Relationship Specialty Start Date End Date Samm Thompson MD PCP - General Family Medicine 05/30/12 Tom Gonzalez Vagesh [address] [place] [address] Primary Staff Physician Cardiology 12/02/18 Care Advocate Relationship Specialty Start Date End Date Samm Thompson MD PCP - General Family Medicine 05/30/12 Tom Gonzalez Vagesh [address] [place] [address] Primary Staff Physician Cardiology 12/02/18 Care Advocate Relationship Specialty Start Date End Date Samm Thompson MD PCP - General Family Medicine 05/30/12 [facility] Tom Vagesh [address] [place] [address] Primary Staff Physician Cardiology 12/02/18 Care Advocate Relationship Specialty Start Date End Date Samm Thompson MD PCP - General Family Medicine 05/30/12 Tom Gonzalez Vagesh [address] [place] [address] Primary Staff Physician Cardiology 12/02/18 Care Advocate Relationship Specialty Start Date End Date Samm Thompson MD PCP - General Family Medicine 05/30/12 [place], Tom Vagmaria r [address] [place] [address] Primary Staff Physician Cardiology 12/02/18 Care Advocate Relationship Specialty Start Date End Date Samm Thompson MD PCP - General Family Medicine 05/30/12 Tom Gonzalez [address] [place] [address] Primary Staff Physician Cardiology 12/02/18 Care Advocate Relationship Specialty Start Date End Date Samm Thompson MD PCP - General Family Medicine 05/30/12 Tom Gonzalez [address] [place] [address] Primary Staff Physician Cardiology 12/02/18 Care Advocate Relationship Specialty Start Date End Date Samm Thompson MD PCP - General Family Medicine 05/30/12 Tom Gonzalez [address] [place] [address] Primary Staff Physician Cardiology 12/02/18 Care Advocate Relationship Specialty Start Date End Date Samm Thompson MD PCP - General Family Medicine 05/30/12 Tom Gonzalez [address] [place] [address] Primary Staff Physician Cardiology 12/02/18 Zahra Pierre MD [address] [place], [place] [id number] Primary Staff Physician Cardiology 04/26/23 Care Advocate Relationship Specialty Start Date End Date Samm Thompson MD PCP - General Family Medicine 05/30/12 Tom Gonzalez [address] [place] [address] Primary Staff Physician Cardiology 12/02/18 Zahra Pierre MD [address] [place], [place] [id number] Primary Staff Physician Cardiology 04/26/23 Care Advocate Relationship Specialty Start Date End Date Samm Thompson MD PCP - General Family Medicine 05/30/12 Tom Gonzalez [address] [place] [address] Primary Staff Physician Cardiology 12/02/18 Zahra Pierre MD [address] [place] [address] Primary Staff Physician Cardiology 04/26/23 Care Advocate Relationship Specialty Start Date End Date Samm Thompson MD PCP - General Family Medicine 05/30/12 Tom Gonzalez [address] [place] [address] Primary Staff Physician Cardiology 12/02/18 Zahra Pierre MD [address] [place] [address] Primary Staff Physician Cardiology 04/26/23 Care Advocate Relationship Specialty Start Date End Date Samm Thompson MD PCP - General Family Medicine 05/30/12 [facility] [address] [place] [address] Primary Staff Physician Cardiology 12/02/18 Zahra Pierre MD [address] [place] [address] Primary Staff Physician Cardiology 04/26/23 Virgil Carrillo MD [address] [place] [address] Primary Staff Physician Cardiology 10/29/23 Care Advocate Relationship Specialty Start Date End Date Samm Thompson MD PCP - General Family Medicine 05/30/12 [facility] [address] [facility] [place] [place] [address] Primary Staff Physician Cardiology 12/02/18 Zahra Pierre MD [address] [place] [address] Primary Staff Physician Cardiology 04/26/23 Virgil Carrillo MD [address] [place] [address] Primary Staff Physician Cardiology 10/29/23 Care Advocate Relationship Specialty Start Date End Date Samm Thompson MD PCP - General Family Medicine 05/30/12 Tom Gonzalez [address] [place] [address] Primary Staff Physician Cardiology 12/02/18 Zahra Pierre MD [address] [place] [address] Primary Staff Physician Cardiology 04/26/23 Virgil Carrillo MD [address] [place] [address] Primary Staff Physician Cardiology 10/29/23 Care Advocate Relationship Specialty Start Date End Date Samm Thompson MD PCP - General Family Medicine 05/30/12 [facility] [address] [facility] [place] [address] Primary Staff Physician Cardiology 12/02/18 Zahra Pierre MD [address] [place] [address] Primary Staff Physician Cardiology 04/26/23 Virgil Carrillo MD [address] [place] [address] Primary Staff Physician Cardiology 10/29/23 Care Advocate Relationship Specialty Start Date End Date Samm Thompson MD PCP - General Family Medicine 05/30/12 Tom Gonzalez [address] [place] [place] [address] Primary Staff Physician Cardiology 12/02/18 Zahra Pierre MD [address] [place] [address] Primary Staff Physician Cardiology 04/26/23 Virgil Carrillo MD [address] [place] [address] Primary Staff Physician Cardiology 10/29/23 Care Advocate Relationship Specialty Start Date End Date Samm Thompson MD PCP - General Family Medicine 05/30/12 Tom Gonzalez [address] [facility] [place] [address] Primary Staff Physician Cardiology 12/02/18 Zahra Pierre MD [address] [place], [place] [id number] Primary Staff Physician Cardiology 04/26/23 Virgil Carrillo MD [address] [place] [address] Primary Staff Physician Cardiology 10/29/23 Care Advocate Relationship Specialty Start Date End Date Samm Thompson MD PCP - General Family Medicine 05/30/12 Tom Gonzalez [address] [place] [address] Primary Staff Physician Cardiology 12/02/18 Zahar Pierre MD [address] [place], [place] [id number] Primary Staff Physician Cardiology 04/26/23 Virgil Carrillo MD [address] [place] [id number] Primary Staff Physician Cardiology 10/29/23 Efren Brady MD [address] [facility] [place] [address] Primary Staff Physician Cardiology 12/26/23 Care Advocate Relationship Specialty Start Date End Date Samm Thompson MD PCP - General Family Medicine 05/30/12 Tom Gonzalez [address] [place] [address] Primary Staff Physician Cardiology 12/02/18 Zahra Pierre MD [address] [place] [id number] Primary Staff Physician Cardiology 04/26/23 Virgil Carrillo MD [address] [place] [id number] Primary Staff Physician Cardiology 10/29/23 Efren Brady MD [address] [place] [id number] Primary Staff Physician Cardiology 12/26/23 Care Advocate Relationship Specialty Start Date End Date Samm Thompson MD PCP - General Family Medicine 05/30/12 Tom Gonzalez [address] [facility] [place] [address] Primary Staff Physician Cardiology 12/02/18 Zahra Pierre MD [address] [place] [address] Primary Staff Physician Cardiology 04/26/23 Virgil Carrillo MD [address] [place] [address] Primary Staff Physician Cardiology 10/29/23 Efren Brady MD [address] [place] [address] Primary Staff Physician Cardiology 12/26/23 Care Advocate Relationship Specialty Start Date End Date Samm Thompson MD PCP - General Family Medicine 05/30/12 Tom Gonzalez [address] [place] [address] Primary Staff Physician Cardiology 12/02/18 Zahra Pierre MD [address] [place], [place] [id number] Primary Staff Physician Cardiology 04/26/23 Virgil Carrillo MD [address] [place] [address] Primary Staff Physician Cardiology 10/29/23 Efren Brady MD [address] [place] [address] Primary Staff Physician Cardiology 12/26/23 Care Advocate Relationship Specialty Start Date End Date Samm Thompson MD PCP - General Family Medicine 05/30/12 Tom Gonzalez [address] [place] [address] Primary Staff Physician Cardiology 12/02/18 Zahra Pierre MD [address] [place] [address] Primary Staff Physician Cardiology 04/26/23 Virgil Carrillo MD [address] [place] [address] Primary Staff Physician Cardiology 10/29/23 Efren Brady MD [address] [place] [address] Primary Staff Physician Cardiology 12/26/23 Paulina Fernandes MD [address] [place] [address] Primary Staff Physician Cardiology 01/10/24 Care Advocate Relationship Specialty Start Date End Date Samm Thompson MD PCP - General Family Medicine 05/30/12 Tom Gonzalez [address] [place] [address] Primary Staff Physician Cardiology 12/02/18 Zahra Pierre MD [address] [place], [place] [id number] Primary Staff Physician Cardiology 04/26/23 Virgil Carrillo MD [address] [place] [address] Primary Staff Physician Cardiology 10/29/23 Efren Brady MD [address] [place] [address] Primary Staff Physician Cardiology 12/26/23 Paulina Fernandes MD [address] [place] [address] Primary Staff Physician Cardiology 01/10/24 Care Advocate Relationship Specialty Start Date End Date Samm Thompson MD PCP - General Family Medicine 05/30/12 Tom Gonzalez [address] [place] [address] Primary Staff Physician Cardiology 12/02/18 Zahra Pierre MD [address] [place] [address] Primary Staff Physician Cardiology 04/26/23 Virgil Carrillo MD [address] [place], [place] [id number] Primary Staff Physician Cardiology 10/29/23 Efren Brady MD [address] [place] [address] Primary Staff Physician Cardiology 12/26/23 Paulina Fernandes MD [address] [place] [address] Primary Staff Physician Cardiology 01/10/24 Care Advocate Relationship Specialty Start Date End Date Samm Thompson MD PCP - General Family Medicine 05/30/12 Tom Gonzalez [address] [place] [address] Primary Staff Physician Cardiology 12/02/18 Zahra Pierre MD [address] [facility] [place] [address] Primary Staff Physician Cardiology 04/26/23 Virgil Carrillo MD [address] [place] [address] Primary Staff Physician Cardiology 10/29/23 Efren Brady MD [address] [place] [address] Primary Staff Physician Cardiology 12/26/23 Paulina Fernandes MD [address] [place] [id number] Primary Staff Physician Cardiology 01/10/24 Care Advocate Relationship Specialty Start Date End Date Samm Thompson MD PCP - General Family Medicine 05/30/12 Tom Gonzalez [address] [place] [address] Primary Staff Physician Cardiology 12/02/18 Zahra Pierre MD [address] [facility] [place] [address] Primary Staff Physician Cardiology 04/26/23 Virgil Carrillo MD [address] [place] [address] Primary Staff Physician Cardiology 10/29/23 Efren Brady MD [address] [place] [address] Primary Staff Physician Cardiology 12/26/23 Paulina Fernandes MD [address] [place] [address] Primary Staff Physician Cardiology 01/10/24 Care Advocate Relationship Specialty Start Date End Date Samm Thompson MD PCP - General Family Medicine 05/30/12 Tom Gonzalez [address] [place] [address] Primary Staff Physician Cardiology 12/02/18 Zahra Pierre MD [address] [place] [address] Primary Staff Physician Cardiology 04/26/23 Virgil Carrillo MD [address] [place] [address] Primary Staff Physician Cardiology 10/29/23 Efren Brady MD [address] [place] [address] Primary Staff Physician Cardiology 12/26/23 Paulina Fernandes MD [address] [place] [address] Primary Staff Physician Cardiology 01/10/24 Care Advocate Relationship Specialty Start Date End Date Samm Thompson MD PCP - General Family Medicine 05/30/12 Tom Gonzalez [address] [place] [address] Primary Staff Physician Cardiology 12/02/18 Zahra Pierre MD [address] [place] [address] Primary Staff Physician Cardiology 04/26/23 Virgil Carrillo MD [address] [place] [id number] Primary Staff Physician Cardiology 10/29/23 Efren Brady MD [address] [place] [id number] Primary Staff Physician Cardiology 12/26/23 Paulina Fernandes MD [address] [place] [id number] Primary Staff Physician Cardiology 01/10/24 Care Advocate Relationship Specialty Start Date End Date Samm Thompson MD PCP - General Family Medicine 05/30/12 Tom Gonzalez [address] [place] [address] Primary Staff Physician Cardiology 12/02/18 Zahra Pierre MD [address] [place] [address] Primary Staff Physician Cardiology 04/26/23 Virgil Carrillo MD [address] [place] [address] Primary Staff Physician Cardiology 10/29/23 Efren Brady MD [address] [place] [address] Primary Staff Physician Cardiology 12/26/23 Paulina Fernandes MD [address] [place] [address] Primary Staff Physician Cardiology 01/10/24 Care Advocate Relationship Specialty Start Date End Date Samm Thompson MD PCP - General Family Medicine 05/30/12 Tom Gonzalez [address] [place], [place] 6459157 Primary Staff Physician Cardiology 12/02/18 Zahra Pierre MD [address] [place] [id number] Primary Staff Physician Cardiology 04/26/23 Virgil Carrillo MD [address] [place] [phone] Primary Staff Physician Cardiology 10/29/23 Efren Brady MD [address] [place] [address] Primary Staff Physician Cardiology 12/26/23 Paulina Fernandes MD [address] [place] [address] Primary Staff Physician Cardiology 01/10/24 Care Advocate Relationship Specialty Start Date End Date Samm Thompson MD PCP - General Family Medicine 05/30/12 Tom Gonzalez [address] [place] [address] Primary Staff Physician Cardiology 12/02/18 Zahra Pierre MD [address] [place], [place] 5459695 Primary Staff Physician Cardiology 04/26/23 Virgil Carrillo MD [address] [place] [id number] Primary Staff Physician Cardiology 10/29/23 Efren Brady MD [address] [place] [id number] Primary Staff Physician Cardiology 12/26/23 Paulina Fernandes MD [address] [place] [address] Primary Staff Physician Cardiology 01/10/24 Care Advocate Relationship Specialty Start Date End Date Samm Thompson MD PCP - General Family Medicine 05/30/12 Tom Gonzalez [address] [facility] [place] [address] Primary Staff Physician Cardiology 12/02/18 Zahra Pierre MD [address] [place], [place] 4626395 Primary Staff Physician Cardiology 04/26/23 Virgil Carrillo MD [address] [place] [address] Primary Staff Physician Cardiology 10/29/23 Efren Brady MD [address] [place] [address] Primary Staff Physician Cardiology 12/26/23 Paulina Fernandes MD [address] [place] [address] Primary Staff Physician Cardiology 01/10/24 Care Advocate Relationship Specialty Start Date End Date Samm Thompson MD PCP - General Family Medicine 05/30/12 Tom Gonzalez [address] [facility] [place] [address] Primary Staff Physician Cardiology 12/02/18 Zahra Pierre MD [address] [place] [id number] Primary Staff Physician Cardiology 04/26/23 Virgil Carrillo MD [address] [place] [id number] Primary Staff Physician Cardiology 10/29/23 Efren Brady MD [address] [place] [address] Primary Staff Physician Cardiology 12/26/23 Paulina Fernandes MD [address] [place] [address] Primary Staff Physician Cardiology 01/10/24 Care Advocate Relationship Specialty Start Date End Date Samm Thompson MD PCP - General Family Medicine 05/30/12 Tom Gonzalez [address] [place] [address] Primary Staff Physician Cardiology 12/02/18 Zahra Pierre MD [facility] [place], [place] 2587795 Primary Staff Physician Cardiology 04/26/23 Virgil Carrillo MD [address] [place] [id number] Primary Staff Physician Cardiology 10/29/23 Efren Brady MD [facility] [place] [address] Primary Staff Physician Cardiology 12/26/23 Paulina Fernandes MD [address] [place] [address] Primary Staff Physician Cardiology 01/10/24 Care Advocate Relationship Specialty Start Date End Date Samm Thompson MD PCP - General Family Medicine 05/30/12 Tom Gonzalez [address] [place] [address] Primary Staff Physician Cardiology 12/02/18 Zahra Pierre MD [facility] [place] [address] Primary Staff Physician Cardiology 04/26/23 Virgil Carrillo MD [facility] [place], [place] 7166295 Primary Staff Physician Cardiology 10/29/23 Efren Brady MD [address] [place] [address] Primary Staff Physician Cardiology 12/26/23 Paulina Fernandes MD [address] [place], [place] 3361795 Primary Staff Physician Cardiology 01/10/24 Care Advocate Relationship Specialty Start Date End Date Samm Thompson MD PCP - General Family Medicine 05/30/12 Tom Gonzalez [address] [facility] [place] 0358757 Primary Staff Physician Cardiology 12/02/18 Zahra Pierre MD [address] [place] [address] Primary Staff Physician Cardiology 04/26/23 Virgil Carrillo MD [address] [place] [address] Primary Staff Physician Cardiology 10/29/23 Efren Brady MD [address] [place] [address] Primary Staff Physician Cardiology 12/26/23 Paulina Fernandes MD [address] [place] [address] Primary Staff Physician Cardiology 01/10/24 Care Advocate Relationship Specialty Start Date End Date Samm Thompson MD PCP - General Family Medicine 05/30/12 Tom Gonzalez [address] [facility] [place] [address] Primary Staff Physician Cardiology 12/02/18 Zahra Pierre MD [address] [place] [address] Primary Staff Physician Cardiology 04/26/23 Virgil Carrillo MD [address] [place], [place] [id number] Primary Staff Physician Cardiology 10/29/23 Efren Brady MD [address] [place], [place] 7643795 Primary Staff Physician Cardiology 12/26/23 Paulina Fernandes MD [address] [place] [address] Primary Staff Physician Cardiology 01/10/24 Care Advocate Relationship Specialty Start Date End Date Samm Thompson MD PCP - General Family Medicine 05/30/12 Tom Gonzalez [address] [place] [address] Primary Staff Physician Cardiology 12/02/18 Zahra Pierre MD [facility] [place] [address] Primary Staff Physician Cardiology 04/26/23 Virgil Carrillo MD [address] [place], [place] [id number] Primary Staff Physician Cardiology 10/29/23 Efren Brady MD [address] [place], [place] 7942195 Primary Staff Physician Cardiology 12/26/23 Paulina Fernandes MD [address] [place] [address] Primary Staff Physician Cardiology 01/10/24 Care Advocate Relationship Specialty Start Date End Date Samm Thompson MD PCP - General Family Medicine 05/30/12 Tom Gonzalez [address] [facility] [place] [address] Primary Staff Physician Cardiology 12/02/18 Zahra Pierre MD [address] [place] [address] Primary Staff Physician Cardiology 04/26/23 Virgil Carrillo MD [address] [place] [address] Primary Staff Physician Cardiology 10/29/23 Efren Brady MD [address] [place] [address] Primary Staff Physician Cardiology 12/26/23 Paulina Fernandes MD [address] [place] [address] Primary Staff Physician Cardiology 01/10/24 Care Advocate Relationship Specialty Start Date End Date Samm Thompson MD PCP - General Family Medicine 05/30/12 Tom Gonzalez [address] [facility] [place] [address] Primary Staff Physician Cardiology 12/02/18 Zahra Pierre MD [address] [place] [address] Primary Staff Physician Cardiology 04/26/23 Virgil Carrillo MD [address] [place], [place] [phone] Primary Staff Physician Cardiology 10/29/23 Efren Brady MD [address] [place] [address] Primary Staff Physician Cardiology 12/26/23 Carmela Fernandes MD [address] [place] [address] Primary Staff Physician Cardiology 01/10/24 Care Advocate Relationship Specialty Start Date End Date Samm Thompson MD PCP - General Family Medicine 05/30/12 Tom Gonzalez [address] [place] [address] Primary Staff Physician Cardiology 12/02/18 Zahra Pierre MD [address] [place] [id number] Primary Staff Physician Cardiology 04/26/23 Virgil Carrillo MD [address] [place], [place] [phone] Primary Staff Physician Cardiology 10/29/23 Efren Brady MD [address] [place], [place] 5568195 Primary Staff Physician Cardiology 12/26/23 Carmela Fernandes MD [address] [place] [address] Primary Staff Physician Cardiology 01/10/24 Care Advocate Relationship Specialty Start Date End Date Samm Thompson MD PCP - General Family Medicine 05/30/12 Tom Gonzalez [address] [place] [address] Primary Staff Physician Cardiology 12/02/18 Zahra Pierre MD [address] [place] [address] Primary Staff Physician Cardiology 04/26/23 Virgil Carrillo MD [address] [place] [address] Primary Staff Physician Cardiology 10/29/23 Efren Brady MD [address] [place] [address] Primary Staff Physician Cardiology 12/26/23 Carmela Fernandes MD [address] [place] [address] Primary Staff Physician Cardiology 01/10/24 Care Advocate Relationship Specialty Start Date End Date Samm Thompson MD PCP - General Family Medicine 05/30/12 Tom Gonzalez [address] [place] [address] Primary Staff Physician Cardiology 12/02/18 Zahra Pierre MD [address] [place], [place] [id number] Primary Staff Physician Cardiology 04/26/23 Virgil Carrillo MD [address] [place], [place] 9902995 Primary Staff Physician Cardiology 10/29/23 Efren Brady MD [address] [place], [place] 9019395 Primary Staff Physician Cardiology 12/26/23 Carmela Fernandes MD [address] [place] [address] Primary Staff Physician Cardiology 01/10/24 Care Advocate Relationship Specialty Start Date End Date Samm Thompson MD PCP - General Family Medicine 05/30/12 Tom Gonzalez [address] [place] [address] Primary Staff Physician Cardiology 12/02/18 Care Advocate Relationship Specialty Start Date End Date Samm Thompson MD PCP - General Family Medicine 05/30/12 Tom Gonzalez [address] [place] [address] Primary Staff Physician Cardiology 12/02/18 Care Advocate Relationship Specialty Start Date End Date Samm Thompson MD PCP - General Family Medicine 05/30/12 Tom Gonzalez [address] [place] [address] Primary Staff Physician Cardiology 12/02/18 Zahra Pierre MD [address] [place] [address] Primary Staff Physician Cardiology 04/26/23 Virgil Carrillo MD [address] [place] [address] Primary Staff Physician Cardiology 10/29/23 Efren Brady MD [address] [place] [address] Primary Staff Physician Cardiology 12/26/23 Carmela Fernandes MD [address] [place] [phone] Primary Staff Physician Cardiology 01/10/24 Care Advocate Relationship Specialty Start Date End Date Samm Thompson MD PCP - General Family Medicine 05/30/12 Tom Gonzalez [address] [facility] [place] [address] Primary Staff Physician Cardiology 12/02/18 Zahra Pierre MD [address] [facility] [place] [address] Primary Staff Physician Cardiology 04/26/23 Virgil Carrillo MD [address] [place], [place] 0813195 Primary Staff Physician Cardiology 10/29/23 Efren Brady MD [address] [place] [address] Primary Staff Physician Cardiology 12/26/23 Carmela Fernandes MD [address] [place] [address] Primary Staff Physician Cardiology 01/10/24 Care Advocate Relationship Specialty Start Date End Date Samm Thompson MD PCP - General Family Medicine 05/30/12 Tom Gonzalez [address] [facility] [place] [address] Primary Staff Physician Cardiology 12/02/18 Zahra Pierre MD [address] [place] [id number] Primary Staff Physician Cardiology 04/26/23 Virgil Carrillo MD [address] [place] [address] Primary Staff Physician Cardiology 10/29/23 Efren Brady MD [address] [place] [address] Primary Staff Physician Cardiology 12/26/23 Carmela Fernandes MD [address] [place] [address] Primary Staff Physician Cardiology 01/10/24 Care Advocate Relationship Specialty Start Date End Date Samm Thompson MD PCP - General Family Medicine 05/30/12 Tom Gonzalez [address] [facility] [place] [address] Primary Staff Physician Cardiology 12/02/18 Zahra Pierre MD [facility] [place] [address] Primary Staff Physician Cardiology 04/26/23 Virgil Carrillo MD [facility] [place] [address] Primary Staff Physician Cardiology 10/29/23 Efren Brady MD [facility] [place] [address] Primary Staff Physician Cardiology 12/26/23 Carmela Fernandes MD [address] [place] [address] Primary Staff Physician Cardiology 01/10/24 Care Advocate Relationship Specialty Start Date End Date Samm Thompson MD PCP - General Family Medicine 05/30/12 Tom Gonzalez [address] [place] [address] Primary Staff Physician Cardiology 12/02/18 Zahra Pierre MD [address] [place] [address] Primary Staff Physician Cardiology 04/26/23 Virgil Carrillo MD [address] [place], [place] [phone] Primary Staff Physician Cardiology 10/29/23 Efren Brady MD [address] [place], [place] 0358995 Primary Staff Physician Cardiology 12/26/23 Carmela Fernandes MD [address] [place] [address] Primary Staff Physician Cardiology 01/10/24 Care Advocate Relationship Specialty Start Date End Date Samm Thompson MD PCP - General Family Medicine 05/30/12 Tom Gonzalez [address] [facility] [place] [address] Primary Staff Physician Cardiology 12/02/18 Zahra Pierre MD [address] [place] [address] Primary Staff Physician Cardiology 04/26/23 Virgil Carrillo MD [address] [place] [address] Primary Staff Physician Cardiology 10/29/23 Efren Brady MD [address] [place] [address] Primary Staff Physician Cardiology 12/26/23 Carmela Fernandes MD [address] [place] [address] Primary Staff Physician Cardiology 01/10/24 Care Advocate Relationship Specialty Start Date End Date Samm Thompson MD PCP - General Family Medicine 05/30/12 Tom Gonzalez [address] [place] [address] Primary Staff Physician Cardiology 12/02/18 Zahra Pierre MD [address] [place] [address] Primary Staff Physician Cardiology 04/26/23 Virgil Carrillo MD [address] [place], [place] [id number] Primary Staff Physician Cardiology 10/29/23 Efren Brady MD [address] [place] [address] Primary Staff Physician Cardiology 12/26/23 Carmela Fernandes MD [address] [place] [address] Primary Staff Physician Cardiology 01/10/24 Care Advocate Relationship Specialty Start Date End Date Samm Thompson MD PCP - General Family Medicine 05/30/12 Tom Gonzalez [address] [place] [address] Primary Staff Physician Cardiology 12/02/18 Zahra Pierre MD [facility] [place] [address] Primary Staff Physician Cardiology 04/26/23 Virgil Carrillo MD [address] [place] [address] Primary Staff Physician Cardiology 10/29/23 Efren Brady MD [address] [place], [place] 159[address] Primary Staff Physician Cardiology 12/26/23 Carmela Fernandes MD [address] [place] [address] Primary Staff Physician Cardiology 01/10/24 Care Advocate Relationship Specialty Start Date End Date Samm Thompson MD PCP - General Family Medicine 05/30/12 Tom Gonzalez [address] [place] [address] Primary Staff Physician Cardiology 12/02/18 Zahra Pierre MD [address] [place] [address] Primary Staff Physician Cardiology 04/26/23 Virgil Carrillo MD [address] [place] [address] Primary Staff Physician Cardiology 10/29/23 Efren Brady MD [address] [place] [address] Primary Staff Physician Cardiology 12/26/23 Carmela Fernandes MD [address] [place] [address] Primary Staff Physician Cardiology 01/10/24 Care Advocate Relationship Specialty Start Date End Date Samm Thompson MD PCP - General Family Medicine 05/30/[address] Gonzalez [address] [facility] [place] [address] Primary Staff Physician Cardiology 12/02/18 Zahra Pierre MD [address] [place] [address] Primary Staff Physician Cardiology 04/26/23 Virgil Carrillo MD [address] [place] [address] Primary Staff Physician Cardiology 10/29/23 Efren Brady MD [address] [facility] [place] [address] Primary Staff Physician Cardiology 12/26/23 Carmela Fernandes MD [address] [place] [address] Primary Staff Physician Cardiology 01/10/24 Care Advocate Relationship Specialty Start Date End Date Samm Thompson MD PCP - General Family Medicine 05/30/12 Tom Gonzalez [address] [place], [place] [address] [address] Primary Staff Physician Cardiology 12/02/18 Zahra Pierre MD [address] [place] [address] Primary Staff Physician Cardiology 04/26/23 Virgil Carrillo MD [address] [place] [address] Primary Staff Physician Cardiology 10/29/23 Efren Brady MD [address] [place], [place] [id number] Primary Staff Physician Cardiology 12/26/23 Carmela Fernandes MD [address] [place] [address] Primary Staff Physician Cardiology 01/10/24 Care Advocate Relationship Specialty Start Date End Date Samm Thompson MD PCP - General Family Medicine 05/30/12 Tom Gonzalez [address] [place] [address] Primary Staff Physician Cardiology 12/02/18 Zahra Pierre MD [address] [place] [address] Primary Staff Physician Cardiology 04/26/23 Virgil Carrillo MD [address] [place] [address] Primary Staff Physician Cardiology 10/29/23 Efren Brady MD [address] [place] [address] Primary Staff Physician Cardiology 12/26/23 Carmela Fernandes MD [address] [place] [address] Primary Staff Physician Cardiology 01/10/24 Care Advocate Relationship Specialty Start Date End Date Samm Thompson MD PCP - General Family Medicine 05/30/12 Tom Gonzalez [address] [place] [address] Primary Staff Physician Cardiology 12/02/18 Zahra Pierre MD [address] [place] [id number] Primary Staff Physician Cardiology 04/26/23 Virgil Carrillo MD [address] [place] [id number] Primary Staff Physician Cardiology 10/29/23 Efren Brady MD [address] [place] [id number] Primary Staff Physician Cardiology 12/26/23 Carmela Fernandes MD [address] [place] [id number] Primary Staff Physician Cardiology 01/10/24 Care Advocate Relationship Specialty Start Date End Date Samm Thompson MD PCP - General Family Medicine 05/30/12 Tom Gonzalez [address] [place] [address] Primary Staff Physician Cardiology 12/02/18 Zahra Pierre MD [address] [place] [address] Primary Staff Physician Cardiology 04/26/23 Virgil Carrillo MD [address] [place] [address] Primary Staff Physician Cardiology 10/29/23 Efren Brady MD [address] [facility] [place] [address] Primary Staff Physician Cardiology 12/26/23 Carmela Fernandes MD [address] [place] [address] Primary Staff Physician Cardiology 01/10/24 Care Advocate Relationship Specialty Start Date End Date Samm Thompson MD PCP - General Family Medicine 05/30/12 Tom Gonzalez [address] [place] [address] Primary Staff Physician Cardiology 12/02/18 Zahra Pierre MD [address] [place] [address] Primary Staff Physician Cardiology 04/26/23 Virgil Carrillo MD [address] [place] [address] Primary Staff Physician Cardiology 10/29/23 Efren Brady MD [address] [place] [address] Primary Staff Physician Cardiology 12/26/23 Carmela Fernandes MD [address] [place] [address] Primary Staff Physician Cardiology 01/10/24 Care Advocate Relationship Specialty Start Date End Date Samm Thompson MD PCP - General Family Medicine 05/30/12 Tom Gonzalez [address] [place] [address] Primary Staff Physician Cardiology 12/02/18 Zahra Pierre MD [address] [place] [address] Primary Staff Physician Cardiology 04/26/23 Virgil Carrillo MD [address] [place], [place] [id number] Primary Staff Physician Cardiology 10/29/23 Efren Brady MD [address] [place], [place] [id number] Primary Staff Physician Cardiology 12/26/23 Carmela Fernandes MD [address] [place] [address] Primary Staff Physician Cardiology 01/10/24 Care Advocate Relationship Specialty Start Date End Date Samm Thompson MD [address] [place] [id number] PCP - General Family Medicine 06/29/19 Care Advocate Relationship Specialty Start Date End Date Samm Thompson MD [address] [place] [id number] PCP - General Family Medicine 06/29/19 Care Advocate Relationship Specialty Start Date End Date Samm Thompson MD [address] [place] [address] PCP - General Family Medicine 06/29/19 Care Advocate Relationship Specialty Start Date End Date Samm Thompson MD [address] [place] [address] PCP - General Family Medicine 06/29/19 Care Advocate Relationship Specialty Start Date End Date Samm Thompson MD [address] [place] [address] PCP - General Family Medicine 06/29/19 Care Advocate Relationship Specialty Start Date End Date Samm Thompson MD [address] [place] [address] PCP - General Family Medicine 06/29/19 Care Advocate Relationship Specialty Start Date End Date Samm Thompson MD [address] [place] [address] PCP - General Family Medicine 06/29/19 Care Advocate Relationship Specialty Start Date End Date Samm Thompson MD [address] [place] [address] PCP - General Family Medicine 06/29/19 Care Advocate Relationship Specialty Start Date End Date Samm Thompson MD [address] [place] [address] PCP - General Family Medicine 06/29/19 Care Advocate Relationship Specialty Start Date End Date Samm Thompson MD [address] [place] [id number] PCP - General Family Medicine 06/29/19 Care Advocate Relationship Specialty Start Date End Date Samm Thompson MD [address] [place] [id number] PCP - General Family Medicine 06/29/19 Care Advocate Relationship Specialty Start Date End Date Samm Thompson MD [address] [place] [address] PCP - General Family Medicine 02/26/24 Care Advocate Relationship Specialty Start Date End Date Samm Thompson MD [address] [place] [address] PCP - General Family Medicine 02/26/24 Care Advocate Relationship Specialty Start Date End Date Samm Thompson MD [address] [place] [id number] PCP - General Family Medicine 06/29/19 Care Advocate Relationship Specialty Start Date End Date Samm Thompson MD [address] [place] [id number] PCP - General Family Medicine 02/26/24 Care Advocate Relationship Specialty Start Date End Date Samm Thompson MD [address] [place] [id number] PCP - General Family Medicine 02/26/24 Care Advocate Relationship Specialty Start Date End Date Samm Thompson MD [address] [place] [id number] PCP - General Family Medicine 02/26/24 Care Advocate Relationship Specialty Start Date End Date Samm Thompson MD [address] [place] [id number] PCP - General Family Medicine 02/26/24 Care Advocate Relationship Specialty Start Date End Date Samm Thompson MD [address] [place] [id number] PCP - General Family Medicine 02/26/24 Care Advocate Relationship Specialty Start Date End Date Smam Thompson MD [address] [place] [phone] PCP - General Family Medicine 02/26/24 Care Advocate Relationship Specialty Start Date End Date Samm Thompson MD [address] [place] [id number] PCP - General Family Medicine 02/26/24 Care Advocate Relationship Specialty Start Date End Date Samm Thompson MD PCP - General Family Medicine 02/26/24 Care Advocate Relationship Specialty Start Date End Date Samm Thompson MD PCP - General Family Medicine 02/26/24 Care Advocate Relationship Specialty Start Date End Date Samm Thompson MD PCP - General Family Medicine 02/26/24 Care Advocate Relationship Specialty Start Date End Date Samm Thompson MD PCP - General Family Medicine 02/26/24 Care Advocate Relationship Specialty Start Date End Date Samm Thompson MD PCP - General Family Medicine 02/26/24 Care Advocate Relationship Specialty Start Date End Date Samm Thompson MD [address] [place] [address] PCP - General Family Medicine 12/03/24 Care Advocate Relationship Specialty Start Date End Date Samm Thompson MD [address] [place] [address] PCP - General Family Medicine 12/03/24 Care Advocate Relationship Specialty Start Date End Date Samm Thompson MD PCP - General Family Medicine 05/30/12 Tom Gonzalez [address] [place] [address] Primary Staff Physician Cardiology 12/02/18 Zahra Pierre MD [address] [place] [address] Primary Staff Physician Cardiology 04/26/23 Virgil Carrillo MD [address] [place] [address] Primary Staff Physician Cardiology 10/29/23 Efren Brady MD [address] [place] [address] Primary Staff Physician Cardiology 12/26/23 Carmela Fernandes MD [address] [place] [address] Primary Staff Physician Cardiology 01/10/24 Care Advocate Relationship Specialty Start Date End Date Samm Thompson MD PCP - General Family Medicine 05/30/12 Tom Gonzalez [address] [place], [place] [address] [address] Primary Staff Physician Cardiology 12/02/18 Zahra Pierre MD [address] [place] [address] Primary Staff Physician Cardiology 04/26/23 Virgil Carrillo MD [address] [place] [address] Primary Staff Physician Cardiology 10/29/23 Efren Brady MD [address] [place] [address] Primary Staff Physician Cardiology 12/26/23 Carmela Fernandes MD [address] [place] [address] Primary Staff Physician Cardiology 01/10/24 Care Advocate Relationship Specialty Start Date End Date Samm Thompson MD PCP - General Family Medicine 05/30/12 Tom Gonzalez [address] [place] [address] Primary Staff Physician Cardiology 12/02/18 Zahra Pierre MD [address] [place] [address] Primary Staff Physician Cardiology 04/26/23 Virgil Carrillo MD [address] [place] [address] Primary Staff Physician Cardiology 10/29/23 Efren Brady MD [address] [place] [address] Primary Staff Physician Cardiology 12/26/23 Carmela Fernandes MD [address] [place] [address] Primary Staff Physician Cardiology 01/10/24 Care Advocate Relationship Specialty Start Date End Date Samm Thompson MD PCP - General Family Medicine 05/30/12 Tom Gonzalez [address] [place] [address] Primary Staff Physician Cardiology 12/02/18 Zahra Pierre MD [address] [place] [address] Primary Staff Physician Cardiology 04/26/23 Virgil Carrillo MD [address] [place] [address] Primary Staff Physician Cardiology 10/29/23 Efren Brady MD [address] [place] [address] Primary Staff Physician Cardiology 12/26/23 Carmela Fernandes MD [address] [place] [address] Primary Staff Physician Cardiology 01/10/24 FOR RECORDS [...] BE BASED ON THE PRIMARY CLINICAL RECORDS. [facility] [employer] [facility]. provides no warranty or guarantee of the accuracy or completeness of information in this document.
[2025-03-04 19:48] LABS: Free T3 1.02 pg/mL (2.18-3.98); Thyroid Stimulating Hormone 2.083 uIU/mL (0.358-3.740)
[2025-03-04 19:52] LABS: Troponin I High Sensitivity 840.6 pg/mL (4.0-76.1)
[2025-03-04] MEDS: BUMETANIDE 10 MG in 0.9 % SODIUM CHLORIDE 160 ML 20 MG IV (20:35)
[2025-03-04] MEDS: CLINDAMYCIN PHOSPHATE/D5W 600 MG/50 ML PREMIX 100 MG IV (20:36)
[2025-03-04] MEDS: CEFTRIAXONE 1,000 MG in 0.9 % SODIUM CHLORIDE 50 ML 100 MG IV (20:37)
[2025-03-04] MEDS: APIXABAN 5 MG TABLET PO (21:18)
[2025-03-04 22:06] LABS: Troponin I High Sensitivity 781.3 pg/mL (4.0-76.1)
[2025-03-04 22:21] LABS: Bilirubin Urine NEGATIVE (NEGATIVE); Blood Urine NEGATIVE (NEGATIVE); Clarity Urine CLEAR (CLEAR); Color Urine LT. YELLOW (YELLOW); Glucose Urine UA NEGATIVE (NEGATIVE); Ketones Urine NEGATIVE (NEGATIVE); Leukocyte Esterase Urine NEGATIVE (NEGATIVE); Nitrite Urine NEGATIVE (NEGATIVE); Protein Urine NEGATIVE (NEG/TRACE); Urobilinogen Urine 0.2 EU/dL (0.2-1.0)
[2025-03-04 22:26] LABS: Bacteria Urine NONE SEEN #/HPF (NONE SEEN); Cast Seen? SEEN #/LPF (NONE SEEN); Crystals Seen? None Seen #/HPF (None Seen); Hyaline Casts Urine FEW; Mucus Urine NONE SEEN (NONE SEEN); RBC Urine 0-2 #/HPF (0-2); Squamous Epithelial Cell Urine NONE SEEN #/LPF (NONE/RARE); WBC Urine 0-2 #/HPF (NONE SEEN)
[2025-03-04 22:27] LABS: Urine Culture Indicated NO
[2025-03-05] VITALS (12 sets, daily range): BP systolic 105–115; BP diastolic 70–78; PULSE 61–76; TEMP 36.4–36.5; O2SAT 91–93
[2025-03-05] MEDS: CLINDAMYCIN PHOSPHATE/D5W 600 MG/50 ML PREMIX 100 MG IV ×3 (00:38→13:21)
[2025-03-05] MEDS: LEVOTHYROXINE SODIUM 100 MCG TABLET PO (05:35)
[2025-03-05] MEDS: LIOTHYRONINE SODIUM 5 MCG TABLET PO (05:35)
[2025-03-05 05:39] LABS: Basophils Percent Auto 0.1 % (0.2-2.0); Eosinophils Percent Auto 0.1 % (0.9-7.0); Hematocrit 42.3 % (42.0-54.0); Hemoglobin 13.7 g/dL (14.0-18.0); Immature Granulocytes Abs Auto 0.07 10^3/uL (0.00-0.03); Immature Granulocytes Pct Auto 0.7 % (0.0-0.5); Lymphocytes Absolute Auto 0.5 10^3/uL (1.2-3.8); Lymphocytes Percent Auto 4.8 % (20.5-60.0); Mean Corpuscular HGB Conc 32.4 g/dL (29.9-35.2); Mean Corpuscular Hemoglobin 31.1 pg (25.9-34.0); Mean Corpuscular Volume 96.1 fL (80.0-94.0); Mean Platelet Volume 10.7 fL (9.5-13.5); Monocytes Absolute Auto 0.7 10^3/uL (0.3-0.8); Monocytes Percent Auto 7.2 % (1.7-12.0); Neutrophils Absolute Auto 8.8 10^3/uL (1.4-6.5); Neutrophils Percent Auto 87.1 % (43.0-75.0); Platelet Count 157 10^3/uL (150-450); Red Cell Distribution Width 17.4 % (11.0-15.0); White Blood Count 10.1 10^3/uL (4.0-11.0)
[2025-03-05 05:53] LABS: Alanine Aminotransferase 17 U/L (16-63); Albumin Globulin Ratio 0.7; Albumin Level 2.7 g/dL (3.4-5.0); Alkaline Phosphatase 105 U/L (46-116); Anion Gap 18.1; Aspartate Amino Transferase 25 U/L (15-37); BUN Creatinine Ratio 24.7; Bilirubin Total 1.5 mg/dL (0.2-1.0); Calcium 9.1 mg/dL (8.5-10.1); Carbon Dioxide 23.6 mmol/L (21.0-32.0); Chloride 101 mmol/L (98-107); Estimated GFR (African America 23 (>=60 mL/min/1.73m^2); Estimated GFR (Non-African Ame 19 (>=60 mL/min/1.73m^2); Glucose 106 mg/dL (74-106); Potassium 5.7 mmol/L (3.5-5.1); Sodium 137 mmol/L (136-145); Total Protein 6.7 g/dL (6.4-8.2)
[2025-03-05 05:58] LABS: NT Pro B Type Natriuretic Pept >35000.0 pg/mL (<=1800.0); Troponin I High Sensitivity 714.6 pg/mL (4.0-76.1)
--- NOTE | 2025-03-05 06:28 | P.PN_ITS ---
Progress Note: Subjective Subjective Interval history: Sleeping when I entered the room awakens easily answers questions appropriately, only complaint as having a Galan catheter placed Exam Constitutional Vital Signs, click to edit/add: Last Vital Signs Temp 97.7 F 03/05/25 04:00 Pulse 61 03/05/25 06:00 Resp 18 03/05/25 04:00 BP 105/73 03/05/25 04:00 Pulse Ox 93 L 03/05/25 04:00 O2 Del Method Room Air 03/05/25 04:00 Documenting provider has reviewed patient's vital signs: yes Common normals: apparent distress (Appears very fatigued) Chest Common normals: inspection of chest normal and palpation of chest normal Respiratory Common normals: normal respiratory effort and no retractions; not clear to ascultation bilaterally Auscultation: diminished lung sounds (Unchanged) Cardio Common normals: regular rate, regular rhythm and no murmurs GI Common normals: soft to palpation; negative for Normal to inspection, nondistended, normoactive bowel sounds present (Appears to have lower abdominal wall edema) Extremity Common normals: abnormal to inspection (Left lower extremity more so than right cellulitis and 3-4+ edema unchanged) Progress Note: Objective Labs Labs: Short CBC 03/04/25 03/05/25 Range/Units 15:40 04:43 WBC 9.8 10.1 (4.0-11.0) 10^3/uL Hgb 13.8 L 13.7 L (14.0-18.0) g/dL Hct 42.3 42.3 (42.0-54.0) % Plt Count 172 157 (150-450) 10^3/uL BMP 03/04/25 03/05/25 15:40 04:43 Sodium 135 L 137 Potassium 5.3 H 5.7 H Chloride 99 101 Carbon Dioxide 25.6 23.6 BUN 71.0 H 79.0 H* Creatinine 3.26 H 3.20 H Glucose 90 106 Calcium 9.4 9.1 Liver Function 03/04/25 03/05/25 Range/Units 15:40 04:43 Total Bilirubin 2.2 H 1.5 H (0.2-1.0) mg/dL AST 20 25 (15-37) U/L ALT 16 17 (16-63) U/L Alkaline Phosphatase 114 105 (46-116) U/L Albumin 3.1 L 2.7 L (3.4-5.0) g/dL Urine 03/04/25 Range/Units 22:08 Urine Color Lt. yellow (YELLOW) Urine Clarity Clear (CLEAR) Urine pH 6.0 (5.0-9.0) Ur Specific [place] 1.010 (1.005-1.025) Urine Protein Negative (NEG/TRACE) mg/dL Urine Glucose (UA) Negative (NEGATIVE) mg/dL Progress Note: A&P Assessment and Plan (1) Acute exacerbation of congestive heart failure: (2) Heart failure: Qualifiers: Heart failure chronicity: unspecified Heart failure type: unspecified Qualified Code(s): I50.9 - Heart failure, unspecified (3) Atrial fibrillation: (4) Anemia: (5) Dyspnea: (6) Edema of both lower legs due to peripheral venous insufficiency: (7) Cardiac defibrillator in place: (8) Elevated troponin: Plan Admission findings: Borderline low blood pressure, hyponatremia, hyperkalemia, acute kidney injury, acute elevation in high-sensitivity troponin and BNP, peripheral edema and pleural effusion consistent with acute combined congestive heart failure Acute combined congestive heart failure-creatinine slightly improved but Bumex drip not highly effective, will change patient to bolus dose of Lasix and add Zaroxolyn, checking echocardiogram Acute kidney injury stage I-baseline creatinine of 2.19 earlier this year, creatinine admission 3.26 which is 150% above baseline with decreased urine output in the last 6 hours would be consistent with acute kidney injury stage I--see above Acute elevation of troponin this is likely secondary to his cardioversion although he maintains consistently an elevated troponin, slowly improving Cellulitis left lower extremity-check wound culture, start patient on IV antibiotics History of recurrent UTIs-urinalysis clear Iron deficiency anemia-monitor daily Hyponatremia-improving Hyperkalemia this is likely medication induced, worse today despite diuresis, 1 dose of Kayexalate and repeat later today Elevated bilirubin likely related to passive congestion from the acute combined congestive heart failure-improved Left pleural effusion secondary to acute combined congestive heart failure as outlined above, consider repeat [id number] repeat chest x-ray Per family has had some ascites in the past as well, will check ultrasound of abdomen after diuresis tomorrow-check ultrasound later today Atrial fibrillation with status post cardioversion-still in sinus Bladder outlet obstruction-over 500 cc noted on bladder scan-Galan catheter placed, bladder spasms try Pyridium Hypothyroidism-check levels, T3 is low and increase supplementation Moderate protein calorie malnutrition-diet supplement Admission status: Patient with significant left pleural effusion, borderline hypoxia, severe weakness secondary to acute combined congestive heart failure with significant elevation in high-sensitivity troponin, medically necessary treatment will span 2 midnights, likely 3 to 4-day hospitalization, inpatient status ? Urinary Catheter Management Urinary Catheter Management Urethral: Cath placed during this visit: yes Urethral indwelling: Yes Reason for continuing: urinary obstruction Insertion date: 03/05/25 Insertion time: 04:30
[2025-03-05] MEDS: SODIUM POLYSTYRENE SULFON 15 GM/60 ML ORAL.SUSP KAYEXALATE 30 GM PO (06:55)
--- NOTE | 2025-03-05 07:19 | P.DS_ITS ---
DS: Providers Provider Date of admission: 03/04/25 18:31 Primary care physician: Samm Serrano MD Consults: 03/04/25 18:23 Consult to Pharmacy Routine Consulting Provider: Reason for consultation: Please [place] me when Med Rec is Updated Has provider been notified: No Occupational Therapy Eval and Treat Routine Reason for consultation: Only if needed for Rehab Has provider been notified: No Physical Therapy Eval and Treat Routine Reason for consultation: Eval and Treat Has provider been notified: No 03/05/25 07:59 Consult to Polysomnographic Technologist Routine Reason for consult:: Long Term Other reason:: may need placement DS: Diagnosis Discharge Diagnosis (1) Acute exacerbation of congestive heart failure: (2) Heart failure: Qualifiers: Heart failure chronicity: unspecified Heart failure type: unspecified Qualified Code(s): I50.9 - Heart failure, unspecified (3) Atrial fibrillation: (4) Anemia: (5) Dyspnea: (6) Edema of both lower legs due to peripheral venous insufficiency: (7) Cardiac defibrillator in place: (8) Elevated troponin: Plan Admission findings: Borderline low blood pressure, hyponatremia, hyperkalemia, acute kidney injury, acute elevation in high-sensitivity troponin and BNP, peripheral edema and pleural effusion consistent with acute combined congestive heart failure Acute combined congestive heart failure with severely reduced ejection fraction- creatinine slightly improved but Bumex drip not highly effective, severely reduced ejection fraction on echocardiogram, transferred Acute kidney injury stage I-baseline creatinine of 2.19 earlier this year, creatinine admission 3.26 which is 150% above baseline with decreased urine o utput in the last 6 hours would be consistent with acute kidney injury stage I--see above Acute elevation of troponin this is likely secondary to his cardioversion although he maintains consistently an elevated troponin, slowly improving Cellulitis left lower extremity-check wound culture, start patient on IV antibiotics, bacteremia and sepsis from stenotrophomonas History of recurrent UTIs-urinalysis clear Iron deficiency anemia-monitor daily Hyponatremia-improving Hyperkalemia this is likely medication induced, worse today despite diuresis, 1 dose of Kayexalate and repeat later today Elevated bilirubin likely related to passive congestion from the acute combined congestive heart failure-improved Left pleural effusion secondary to acute combined congestive heart failure as outlined above, consider repeat [id number] repeat chest x-ray Per family has had some ascites in the past as well, will check ultrasound of abdomen after diuresis tomorrow-check ultrasound later today Atrial fibrillation with status post cardioversion-still in sinus Bladder outlet obstruction-over 500 cc noted on bladder scan-Galan catheter placed, bladder spasms try Pyridium Hypothyroidism-check levels, T3 is low and increase supplementation Moderate protein calorie malnutrition-diet supplement Admission status: Patient with significant left pleural effusion, borderline hypoxia, severe weakness secondary to acute combined congestive heart failure with significant elevation in high-sensitivity troponin, medically necessary treatment will span 2 midnights, likely 3 to 4-day hospitalization, inpatient status DS: Summary Hospital Course Hospital Course: Admitted with 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 Stenotrophomonas positive blood culture secondary to the cellulitis, already started on antibiotics and information was passed along to [facility] facility. Medication see list, follow-up with me in the office after discharge from tertiary care facility Time Spent with Patient Time attestation: Total time spent providing and/or coordinating discharge services: Exam Constitutional Vital Signs, click to edit/add: Last Vital Signs Temp 97.5 F L 03/05/25 15:40 Pulse 70 03/05/25 16:00 Resp 16 03/05/25 15:40 BP 111/70 03/05/25 15:40 Pulse Ox 91 L 03/05/25 15:40 O2 Del Method Room Air 03/05/25 15:40 Documenting provider has reviewed patient's vital signs: yes Common normals: apparent distress (Appears very fatigued) Chest Common normals: inspection of chest normal and palpation of chest normal Respiratory Common normals: normal respiratory effort and no retractions; not clear to ascultation bilaterally Auscultation: diminished lung sounds (Unchanged) Cardio Common normals: regular rate, regular rhythm and no murmurs GI Common normals: soft to palpation; negative for Normal to inspection, nondistended, normoactive bowel sounds present (Appears to have lower abdominal wall edema) Extremity Common normals: abnormal to inspection (Left lower extremity more so than right cellulitis and 3-4+ edema unchanged) Discharge Plan Discharge Disposition: [facility] Discharge Date/Time: 03/05/25 17:37
[2025-03-05] MEDS: LIDOCAINE 2% JELLY 10 ML UR (07:39)
--- NOTE | 2025-03-05 08:00 | US_ITS ---
[place] [id number] Patient Name: LANDEN ROTH MRN: [id number] date: 1940 Sex: M Assigned Patient Location: [place] Current Patient Location: [place] Accession/Order Number: [id number] Exam Date: 03/05/2025 08:28 Report Date: 03/05/2025 08:31 At the request of: FRANCISCA THOMPSON MD Procedure: US abdomen limited LIMITED ABDOMINAL ULTRASOUND - ascites survey: CLINICAL HISTORY: ascites COMPARISON: CT chest 11/21/2024 Ultrasound survey of all 4 quadrants and the pelvis was performed. There is moderate ascites throughout the peritoneal cavity. The largest pocket is at the right lower quadrant measuring 10 - 11 cm in depth. US/US abdomen limited IMPRESSION: MODERATE ASCITES. Impression dictated by: Angeline Bella M.D. 03/05/2025 8:31 AM Dictation Location: [place] [address] Electronically authenticated by: [id number] Y Date: 03/05/2025 08:31
[2025-03-05] MEDS: APIXABAN 5 MG TABLET PO (08:45)
[2025-03-05] MEDS: THIAMINE MONONITRATE (VIT B1) 100 MG TABLET PO (08:45)
[2025-03-05] MEDS: CANAGLIFLOZIN 100 MG TABLET 300 MG PO (08:45)
[2025-03-05] MEDS: METOPROLOL SUCCINATE 25 MG TAB.ER.24H 12.5 MG PO (08:45)
[2025-03-05] MEDS: METOLAZONE 2.5 MG TABLET 10 MG PO (08:46)
[2025-03-05] MEDS: PROSTAT 15 GM PROTEIN/100 CAL 30 ML LIQUID PACKET PO (08:46)
[2025-03-05] MEDS: HYOSCYAMINE SULFATE 0.125 MG TAB.SUBL SL ×2 (10:08→13:21)
[2025-03-05] MEDS: FUROSEMIDE 40 MG/4 ML VIAL 80 MG IVP (10:08)
[2025-03-05 13:23] LABS: Anion Gap 15.8; Calcium 9.2 mg/dL (8.5-10.1); Carbon Dioxide 26.3 mmol/L (21.0-32.0); Chloride 103 mmol/L (98-107); Estimated GFR (African America 21 (>=60 mL/min/1.73m^2); Estimated GFR (Non-African Ame 17 (>=60 mL/min/1.73m^2); Glucose 127 mg/dL (74-106); Potassium 5.1 mmol/L (3.5-5.1); Sodium 140 mmol/L (136-145)
--- NOTE | 2025-03-05 13:48 | CM.NOTE ---
Pt being transferred to [facility]. Case Management went in to speak with daughter for any questions or concerns. Insurance questions answered, denies other needs at this time.
--- NOTE | 2025-03-05 18:27 | CA_ITS ---
Patient Name: LANDEN ROTH MR#: [id number] : 1940 Exam Date: 03/05/2025 Ordering Doctor: DR FRANCISCA THOMPSON . ECHOCARDIOGRAM REPORT PROCEDURE: CA ECHO DOPPLER COMPLETE INDICATIONS: Dyspnea, elevated BNP and TROP, CABGx3, AICD, mitral valve clip (AZAEL), UT, congestive heart failure COMPARISON: None. DESCRIPTION: COMPLETE ECHOCARDIOGRAM Real-time transthoracic echocardiography with 2D, M-mode, spectral and color flow Doppler performed. QUALITY: Technical quality was good. LEFT VENTRICLE: Moderate dilatation. Normal left ventricular wall thickness. There is severe global hypokinesis with regional variability. Calculated left ventricular ejection fraction is 15%. LV EF: Severely reduced left ventricular ejection fraction, (<25%). DIASTOLIC: ATRIAL SEPTUM: Visually appears intact. LEFT ATRIUM: Severe dilatation. RIGHT ATRIUM: Severe dilatation. RIGHT VENTRICLE: Moderate dilatation. Systolic function appears reduced. Pacer wire present. TRICUSPID VALVE: Normal mobility and thickness. No stenosis with mild to moderate regurgitation. Moderately elevated right-sided pressures. RVSP is 55 mmHg. MITRAL VALVE: Mild to moderate mitral regurgitation. Mitral valve clip (AZAEL) appears well seated. Mean diastolic gradient is 1 mmHg at a heart rate of 71 bpm. AORTIC VALVE: Normal trileaflet appearance. Thickened aortic valve. Normal leaflet mobility. No significant aortic valve stenosis. Mild aortic regurgitation. AORTIC ROOT: Normal diameter and appearance, measuring 3.7 cm. Ascending aorta is moderately dilated (4.2 cm) PULMONIC VALVE: Normal thickness and mobility. No stenosis. Trivial regurgitation. PERICARDIUM: No evidence of pericardial effusion. IVC: IVC is dilated (2.2 cm), does not collapse. PLEURA: CONCLUSION: 1. The left ventricle is moderately dilated and exhibits severely reduced systolic function. LVEF is estimated at 15%. 2. Moderately dilated right ventricle with reduced systolic function. 3. MitraClip is well-seated with mild to moderate mitral regurgitation and normal mean diastolic gradient. 4. Severe biatrial dilatation. 5. Mild to moderate tricuspid regurgitation. 6. Mild aortic regurgitation. 7. Moderately elevated right-sided pressures. RVSP is 55 mmHg. 8. Moderately dilated ascending aorta measuring 4.2 cm. Adult Echocardiography Procedure Report Left Ventricle LVEDD (3.7 - 5.6 cm): 6.21 cm LVESD (2.2 - 4.0 cm): 6.20 cm LVIVS thickness (0.6 - 1.2 cm): 1.23 cm LVPW thickness (0.5 - 1.0 cm): 0.97 cm LVOT Max Gradient: 1.28 mm[Hg] LVOT Area (cm2): 0.57 m/s Peak Velocity (LVOT): 0.57 m/s Mean Velocity (LVOT): 0.39 m/s LVOT Diameter 2.11 cm Left Atrium LA Volume Index (2D A2C): 50.02 ml/m2 Left Atrium Systolic Dimension: 4.07 cm Mitral Valve MV E to A Ratio: 2.08 Mitral Valve A-Wave Peak Velocity: 0.53 m/s Mitral Valve E-Wave Peak Velocity: 1.10 m/s Right Ventricle Aorta AO Root Diam: 3.68 cm Ascending Ao Diam: 4.20 cm Aortic Valve AoV Area (Peak Samuel): 2.49 cm2 Peak Velocity(Antegrade Flow): 0.79 m/s, 1.42 m/s Peak Gradient(Antegrade Flow): 2.52 mm[Hg], 8.09 mm[Hg] Mean Velocity(Antegrade Flow): 0.57 m/s, 1.07 m/s Mean Gradient(Antegrade Flow): 1.50 mm[Hg], 5.13 mm[Hg] Velocity Time Integral: 14.87 cm, 41.55 cm Tricuspid Valve Peak Velocity (Regurgitant Flow): 2.37 m/s, 3.17 m/s Pulmonic Valve Peak Gradient: 2.35 mm[Hg], 1.66 mm[Hg] Right Atrium Right Atrium Systolic Pressure: 143.53 ml, 143.53 ml Dictated by: Ozzie Crain M.D. on 03/05/2025 at 18:16 Approved by: Ozzie Crain M.D. on 03/05/2025 at 18:23
[2025-03-06 20:01] LABS: A. calcoaceticus-baumannii Cpx NOT DETECTED (NOT DETECTE); Bacteroides fragilis NOT DETECTED (NOT DETECTE); Candida albicans NOT DETECTED (NOT DETECTE); Candida auris NOT DETECTED (NOT DETECTE); Candida glabrata NOT DETECTED (NOT DETECTE); Candida krusei NOT DETECTED (NOT DETECTE); Candida parapsilosis NOT DETECTED (NOT DETECTE); Candida tropicalis NOT DETECTED (NOT DETECTE); Cryptococcus neoformans/gattii NOT DETECTED (NOT DETECTE); Enterobacter cloacae complex NOT DETECTED (NOT DETECTE); Enterobacterales NOT DETECTED (NOT DETECTE); Enterococcus faecalis NOT DETECTED (NOT DETECTE); Enterococcus faecium NOT DETECTED (NOT DETECTE); Haemophilus influenzae NOT DETECTED (NOT DETECTE); Klebsiella aerogenes NOT DETECTED (NOT DETECTE); Klebsiella pneumoniae group NOT DETECTED (NOT DETECTE); Listeria monocytogenes NOT DETECTED (NOT DETECTE); Neisseria meningitidis NOT DETECTED (NOT DETECTE); Proteus spp. NOT DETECTED (NOT DETECTE); Pseudomonas aeruginosa NOT DETECTED (NOT DETECTE); Salmonella spp. NOT DETECTED (NOT DETECTE); Serratia marcescens NOT DETECTED (NOT DETECTE); Staphylococcus epidermidis NOT DETECTED (NOT DETECTE); Staphylococcus lugdunensis NOT DETECTED (NOT DETECTE); Staphylococcus spp. NOT DETECTED (NOT DETECTE); Streptococcus agalactiae NOT DETECTED (NOT DETECTE); Streptococcus pneumoniae NOT DETECTED (NOT DETECTE); Streptococcus pyogenes NOT DETECTED (NOT DETECTE); Streptococcus spp. NOT DETECTED (NOT DETECTE)
[2025-03-06 21:41] LABS: Source BLOOD; Stenotrophomonas maltophilia DETECTED (NOT DETECTE)
--- OUTSIDE RECORDS SUMMARY | 2025-03-07 20:00 | XMS_ITS | Clinical Summary ---
Author Organization Unknown Care Team Providers Care Program Production Specialist Name Role Phone DONNA YOUNG, FRANCISCA Unavailable Unavailable ARNOLDO ESCOBAR, MARIELENA Unavailable Unavailable IKER LOADER, CELESTINE Unavailable Unavailable JACOB OT, ANGELITO Unavailable Unavailable CARMELA PT, VILMA Unavailable Unavailable SULAIMAN WESLEYN, JAN Unavailable Unavailable CATRACHITO RN, ADMISSION NURSE, MAYA Unavailable Unavailable SREEKANTH GARCIA Unavailable Unavailable Payers Payer Name Policy Type Policy Number Effective Date Expira tion Date MEDICARE - [place] - PDGM [id number] Problems Condition Name Condition Details Condition Category Status Onset Date Resolution Date Last Treatment Date Treating Clinician Comments HYP HRT AND CHR KDNY DIS W HRT FAIL AND STG 1-4/UNSP CHR KDNY Active 09-16 00:00: 00 CHRONIC SYSTOLIC (CONGESTIVE) HEART FAILURE Active 09-16 00:00: 00 UNSPECIFIED DIASTOLIC (CONGESTIVE) HEART FAILURE Active 09-16 00:00: 00 TYPE 2 DIABETES MELLITUS W DIABETIC CHRONIC KIDNEY DISEASE Active 09-16 00:00: 00 CHRONIC KIDNEY DISEASE, STAGE 3 UNSPECIFIED Active 09-16 00:00: 00 UNSPECIFIED ATRIAL FIBRILLATION Active 09-16 00:00: 00 CHRONIC OBSTRUCTIVE PULMONARY DISEASE, UNSPECIFIED Active 09-16 00:00: 00 ATHSCL HEART DISEASE OF [place] CORONARY ARTERY W/O ANG PCTRS Active 09-16 00:00: 00 DEPRESSION, UNSPECIFIED Active 09-16 00:00: 00 GASTRO-ESOPH AGEAL REFLUX DISEASE WITHOUT ESOPHAGITIS Active 09-16 00:00: 00 HYPOTENSION, UNSPECIFIED Active 09-16 00:00: 00 HYPOTHYROIDI SM, UNSPECIFIED Active 09-16 00:00: 00 GOUT, UNSPECIFIED Active 09-16 00:00: 00 PRSNL HX OF TIA (TIA), AND CEREB INFRC W/O RESID DEFICITS Active 09-16 00:00: 00 GEOTECHNICAL INTERN (CURRENT) USE OF ANTICOAGULAN TS Active 09-16 00:00: 00 SOCIAL EXCLUSION AND REJECTION Active 09-16 00:00: 00 Problems related to health literacy Active 09-16 00:00: 00 ACUTE ON CHRONIC SYSTOLIC (CONGESTIVE) HEART FAILURE Active 01-14 00:00: 00 Allergies, Adverse Reactions, Alerts Allergy Name Allergy Type Status Severity Reaction(s) Onset Date Inactive Date Treating Clinician Comments LATEX Propensity to adverse reactions Active 2024-12 12:20:4 2 ADHERENT TAPE Propensity to adverse reactions Active 2024-12 12:21:2 7 Medications Ordered Medication Name Filled Medication Name Start Date Stop Date Current Medication? Ordering Clinician Indication Dosage Frequency Signature (SIG) Comments Components acetaminoph en 325 mg capsule 01-10 00:00: 00 Yes [id number] 2 capsule EVERY 6 HOURS 2 capsule EVERY 6 HOURS (route: oral) Med Classific ation: Analgesic , Anti-infl ammatory or Antipyret ic Artificial Tears (polyvinyl alcohol/pov idone) 0.5 %-0.6 % eye drops 01-10 00:00: 00 Yes [id number] 1 drops NEEDED 1 drops A S NEEDED (route: ophthalmic (eye)) Med Classific ation: Ophthalmi c Agents bumetanide 2 mg tablet 01-10 00:00: 00 Yes [id number] 1 tablet DAILY 1 tablet DAILY (route: oral) Med Classific ation: Cardiovas cular Therapy Agents dapaglifloz in propanediol 10 mg tablet 01-10 00:00: 00 Yes [id number] 1 tablet DAILY 1 tablet DAILY (route: oral) Med Classific ation: Endocrine Eliquis 2.5 mg tablet 01-08 00:00: 00 Yes [id number] 1 tablet DAILY 1 tablet DAILY (route: oral) Med Classific ation: Hematolog ical Agents levothyroxi ne 88 mcg tablet 01-10 00:00: 00 Yes [id number] 1 tablet DAILY 1 tablet DAILY (route: oral) Med Classific ation: Endocrine metoprolol succinate ER 25 mg tablet,exte nded release 24 hr 01-10 00:00: 00 Yes [id number] 0.5 tablet DAILY 0.5 tablet DAILY (route: oral) Med Classific ation: Cardiovas cular Therapy Agents mexiletine 150 mg capsule 01-10 00:00: 00 Yes [id number] 1 capsule 2 TIMES DAILY 1 capsule 2 TIMES DAILY (route: oral) Med Classific ation: Cardiovas cular Therapy Agents Senna Laxative 8.6 mg tablet 01-10 00:00: 00 Yes [id number] 2 tablet DAILY 2 tablet DAILY (route: oral) Med Classific ation: Gastroint estinal Therapy Agents thiamine HCl (vitamin B1) 100 mg tablet 01-10 00:00: 00 Yes [id number] 1 tablet DAILY 1 tablet DAILY (route: oral) Med Classific ation: Electroly te Balance-N utritiona l Products triamterene 50 mg capsule 02-09 00:00: 00 Yes [id number] 1 capsule DAILY 1 capsule DAILY (route: oral) Med Classific ation: Cardiovas cular Therapy Agents cefdinir 300 mg capsule 02-17 00:00: 00 02-27 23:59 :00 No [id number] 2 capsule DAILY 2 capsule DAILY (route: oral) Med Classific ation: Anti-Infe ctive Agents prednisone 20 mg tablet 02-23 00:00: 00 02-27 23:59 :00 No [id number] Rash 3 tablet DAILY 3 tablet DAILY (route: oral) Med Classific ation: Endocrine Vital Signs Vital Name Observation Time Observation Value Commen ts Temperature 2025-02-22 13:57:00.000 98.3 [degF] Temperature 2025-02-22 13:16:00.000 98.3 [degF] Temperature 2025-02-18 14:49:00.000 98.1 [degF] Temperature 2025-02-15 13:11:00.000 97.5 [degF] Temperature 2025-02-10 14:39:00.000 98.1 [degF] Temperature 2025-02-09 15:05:00.000 98.2 [degF] Temperature 2025-02-01 13:50:00.000 97.8 [degF] Temperature 2025-02-01 13:20:00.000 97.8 [degF] Temperature 2025-01-27 12:03:00.000 97.5 [degF] Temperature 2025-01-25 11:08:00.000 97.9 [degF] Temperature 2025-01-21 14:19:00.000 97.9 [degF] Temperature 2025-01-18 11:51:00.000 97.9 [degF] Temperature 2025-01-14 13:19:00.000 97.6 [degF] Temperature 2025-01-14 10:22:00.000 97.5 [degF] Temperature 2025-01-11 12:40:00.000 98.1 [degF] Temperature 2025-01-08 11:40:00.000 97.5 [degF] BMI (%) 2025-01-08 11:40:00.000 21 kg/m2 Height 2025-01-08 11:40:00.000 72 [in_us] Pulse 2025-02-22 13:57:00.000 74 /min Pulse 2025-02-22 13:16:00.000 74 /min Pulse 2025-02-18 14:49:00.000 66 /min Pulse 2025-02-15 13:11:00.000 64 /min Pulse 2025-02-10 14:39:00.000 68 /min Pulse 2025-02-09 15:05:00.000 72 /min Pulse 2025-02-01 13:50:00.000 62 /min Pulse 2025-02-01 13:20:00.000 62 /min Pulse 2025-01-27 12:03:00.000 67 /min Pulse 2025-01-25 11:08:00.000 74 /min Pulse 2025-01-21 14:19:00.000 72 /min Pulse 2025-01-18 11:51:00.000 68 /min Pulse 2025-01-14 13:19:00.000 68 /min Pulse 2025-01-14 10:22:00.000 73 /min Pulse 2025-01-11 12:40:00.000 62 /min Pulse 2025-01-08 11:40:00.000 70 /min O2 Saturation (%) 2025-02-22 13:57:00.000 93 % O2 Saturation (%) 2025-02-22 13:16:00.000 93 % O2 Saturation (%) 2025-02-18 14:49:00.000 93 % O2 Saturation (%) 2025-02-15 13:12:00.000 97 % O2 Saturation (%) 2025-02-10 14:39:00.000 98 % O2 Saturation (%) 2025-02-09 15:05:00.000 94 % O2 Saturation (%) 2025-02-01 13:50:00.000 95 % O2 Saturation (%) 2025-02-01 13:20:00.000 95 % O2 Saturation (%) 2025-01-25 11:08:00.000 97 % O2 Saturation (%) 2025-01-18 11:51:00.000 95 % O2 Saturation (%) 2025-01-14 13:19:00.000 96 % O2 Saturation (%) 2025-01-11 12:40:00.000 94 % O2 Saturation (%) 2025-01-08 11:40:00.000 93 % Respirations 2025-02-22 13:57:00.000 18 /min Respirations 2025-02-22 13:16:00.000 18 /min Respirations 2025-02-18 14:49:00.000 18 /min Respirations 2025-02-15 13:11:00.000 16 /min Respirations 2025-02-10 14:39:00.000 18 /min Respirations 2025-02-09 15:05:00.000 18 /min Respirations 2025-02-01 13:50:00.000 18 /min Respirations 2025-02-01 13:20:00.000 18 /min Respirations 2025-01-27 12:03:00.000 16 /min Respirations 2025-01-25 11:08:00.000 18 /min Respirations 2025-01-21 14:19:00.000 16 /min Respirations 2025-01-18 11:51:00.000 16 /min Respirations 2025-01-14 13:19:00.000 18 /min Respirations 2025-01-14 10:22:00.000 16 /min Respirations 2025-01-11 12:40:00.000 18 /min Respirations 2025-01-08 11:40:00.000 15 /min Weight (lbs) 2025-02-22 13:16:00.000 173 [lb_av] Weight (lbs) 2025-02-15 13:12:00.000 172 [lb_av] Weight (lbs) 2025-02-09 15:05:00.000 165.8 [lb_av] Weight (lbs) 2025-02-01 13:22:00.000 165 [lb_av] Weight (lbs) 2025-01-25 11:12:00.000 163 [lb_av] Weight (lbs) 2025-01-18 11:55:00.000 160 [lb_av] Weight (lbs) 2025-01-11 12:43:00.000 158 [lb_av] Weight (lbs) 2025-01-08 11:40:00.000 158 [lb_av] Systolic Blood Pressure 2025-02-22 13:57:00.000 116 mm [Hg] Systolic Blood Pressure 2025-02-22 13:16:00.000 116 mm [Hg] Systolic Blood Pressure 2025-02-18 14:49:00.000 112 mm [Hg] Systolic Blood Pressure 2025-02-15 13:11:00.000 110 mm [Hg] Systolic Blood Pressure 2025-02-10 14:39:00.000 112 mm [Hg] Systolic Blood Pressure 2025-02-09 15:05:00.000 102 mm [Hg] Systolic Blood Pressure 2025-02-01 13:50:00.000 117 mm [Hg] Systolic Blood Pressure 2025-02-01 13:20:00.000 117 mm [Hg] Systolic Blood Pressure 2025-01-27 12:03:00.000 102 mm [Hg] Systolic Blood Pressure 2025-01-25 11:08:00.000 108 mm [Hg] Systolic Blood Pressure 2025-01-21 14:19:00.000 110 mm [Hg] Systolic Blood Pressure 2025-01-18 11:51:00.000 106 mm [Hg] Systolic Blood Pressure 2025-01-14 13:19:00.000 115 mm [Hg] Systolic Blood Pressure 2025-01-14 10:22:00.000 108 mm [Hg] Systolic Blood Pressure 2025-01-11 12:40:00.000 114 mm [Hg] Systolic Blood Pressure 2025-01-08 11:40:00.000 98 mm[ Hg] Diastolic Blood Pressure 2025-02-22 13:57:00.000 64 mm [Hg] Diastolic Blood Pressure 2025-02-22 13:16:00.000 64 mm [Hg] Diastolic Blood Pressure 2025-02-18 14:49:00.000 68 mm [Hg] Diastolic Blood Pressure 2025-02-15 13:11:00.000 72 mm [Hg] Diastolic Blood Pressure 2025-02-10 14:39:00.000 65 mm [Hg] Diastolic Blood Pressure 2025-02-09 15:05:00.000 60 mm [Hg] Diastolic Blood Pressure 2025-02-01 13:50:00.000 70 mm [Hg] Diastolic Blood Pressure 2025-02-01 13:20:00.000 70 mm [Hg] Diastolic Blood Pressure 2025-01-27 12:03:00.000 62 mm [Hg] Diastolic Blood Pressure 2025-01-25 11:08:00.000 64 mm [Hg] Diastolic Blood Pressure 2025-01-21 14:19:00.000 70 mm [Hg] Diastolic Blood Pressure 2025-01-18 11:51:00.000 66 mm [Hg] Diastolic Blood Pressure 2025-01-14 13:19:00.000 69 mm [Hg] Diastolic Blood Pressure 2025-01-14 10:22:00.000 68 mm [Hg] Diastolic Blood Pressure 2025-01-11 12:40:00.000 62 mm [Hg] Diastolic Blood Pressure 2025-01-08 11:40:00.000 71 mm [Hg] Plan of Treatment Planned Activity Planned Date Details Comments Future Scheduled Test SKILLED NU RSE TO EVALUATE PATIENT, IDENTIFY PRIMARY AND CO-MORBID CONDITIONS CODED PER CODING GUIDELINES, AND DEVELOP PATIENT SPECIFIC PLAN OF CARE THAT INCLUDES PATIENT GOAL FOR HOME HEALTH. [code = SKILLED NURSE TO EVALUATE PATIENT, IDENTIFY PRIMARY AND CO-MORBID CONDITIONS CODED PER CODING GUIDELINES, AND DEVELOP PATIENT SPECIFIC PLAN OF CARE THAT INCLUDES PATIENT GOAL FOR HOME HEALTH.] Future Scheduled Test SKILLED NU RSE TO REVIEW PATIENT MEDICATIONS (PRESCRIPTION/OTC). INSTRUCT PATIENT/CAREGIVER ON ALL MEDICATIONS INCLUDING PURPOSE, WHEN TO TAKE, IMPORTANCE OF MEDICATION ADHERENCE, MONITORING OF EFFECTIVENESS, ADVERSE DRUG REACTIONS, POSSIBLE SIDE EFFECTS, AND WHEN TO NOTIFY AGENCY OR PHYSICIAN/PROVIDER OF ANY CONCERNS. [code = SKILLED NURSE TO REVIEW PATIENT MEDICATIONS (PRESCRIPTION/OTC). INSTRUCT PATIENT/CAREGIVER ON ALL MEDICATIONS INCLUDING PURPOSE, WHEN TO TAKE, IMPORTANCE OF MEDICATION ADHERENCE, MONITORING OF EFFECTIVENESS, ADVERSE DRUG REACTIONS, POSSIBLE SIDE EFFECTS, AND WHEN TO NOTIFY AGENCY OR PHYSICIAN/PROVIDER OF ANY CONCERNS.] Future Scheduled Test PATIENT TOVAR S A RISK OF HOSPITALIZATION AND ED USE. SKILLED NURSE TO ESTABLISH SUPPORT MEASURES TO MINIMIZE RISK OF HOSPITALIZATION AND ED USE, AND INSTRUCT PATIENT/CAREGIVER ON METHODS TO REDUCE AVOIDABLE HOSPITALIZATION AND ED USE. [code = PATIENT HAS A RISK OF HOSPITALIZATION AND ED USE. SKILLED NURSE TO ESTABLISH SUPPORT MEASURES TO MINIMIZE RISK OF HOSPITALIZATION AND ED USE, AND INSTRUCT PATIENT/CAREGIVER ON METHODS TO REDUCE AVOIDABLE HOSPITALIZATION AND ED USE.] Future Scheduled Test SKILLED NU RSE TO PROVIDE INSTRUCTION TO PATIENT/CAREGIVER RELATED TO DISCHARGE PLANNING. [code = SKILLED NURSE TO PROVIDE INSTRUCTION TO PATIENT/CAREGIVER RELATED TO DISCHARGE PLANNING.] Future Scheduled Test SKILLED NU RSE TO PERFORM ENVIRONMENTAL SAFETY RISK ASSESSMENT AND FALL RISK ASSESSMENT AND PROVIDE INSTRUCTION TO IMPLEMENT ENVIRONMENTAL SAFETY AND FALL PREVENTION STRATEGIES THROUGHOUT THE CERTIFICATION PERIOD. SKILLED NURSE WILL MAINTAIN SITUATIONAL AWARENESS AND WILL NOTIFY CLINICAL STRAPPING MACHINE OPERATOR AND PHYSICIAN/PROVIDER WITH ANY CHANGE IN CONDITION. [code = SKILLED NURSE TO PERFORM ENVIRONMENTAL SAFETY RISK ASSESSMENT AND FALL RISK ASSESSMENT AND PROVIDE INSTRUCTION TO IMPLEMENT ENVIRONMENTAL SAFETY AND FALL PREVENTION STRATEGIES THROUGHOUT THE CERTIFICATION PERIOD. SKILLED NURSE WILL MAINTAIN SITUATIONAL AWARENESS AND WILL NOTIFY CLINICAL STRAPPING MACHINE OPERATOR AND PHYSICIAN/PROVIDER WITH ANY CHANGE IN CONDITION.] Future Scheduled Test SKILLED NU RSE FOR OBSERVATION AND ASSESSMENT OF PATIENTS PAIN LEVEL AND EFFECTIVENESS OF PAIN MANAGEMENT REGIMEN. SKILLED NURSE TO INSTRUCT PATIENT/CAREGIVER REGARDING PHARMACOLOGIC AND NON-PHARMACOLOGIC PAIN CONTROL MEASURES. SKILLED NURSE TO REPORT TO PHYSICIAN IF PAIN IS UNCONTROLLED WITH CURRENT PAIN MANAGEMENT REGIMEN. [code = SKILLED NURSE FOR OBSERVATION AND ASSESSMENT OF PATIENTS PAIN LEVEL AND EFFECTIVENESS OF PAIN MANAGEMENT REGIMEN. SKILLED NURSE TO INSTRUCT PATIENT/CAREGIVER REGARDING PHARMACOLOGIC AND NON-PHARMACOLOGIC PAIN CONTROL MEASURES. SKILLED NURSE TO REPORT TO PHYSICIAN IF PAIN IS UNCONTROLLED WITH CURRENT PAIN MANAGEMENT REGIMEN.] Future Scheduled Test SKILLED NU RSE TO ASSESS PATIENT'S SKIN INTEGRITY AND INSTRUCT PATIENT/CAREGIVER ON MEASURES TO PREVENT PRESSURE ULCERS. [code = SKILLED NURSE TO ASSESS PATIENT'S SKIN INTEGRITY AND INSTRUCT PATIENT/CAREGIVER ON MEASURES TO PREVENT PRESSURE ULCERS.] Future Scheduled Test SN TO INST RUCT PATIENT/CAREGIVER ON COPD MANAGEMENT UTILIZING THE BREATHING WITH CARE SPECIALTY PROGRAM. [code = SN TO INSTRUCT PATIENT/CAREGIVER ON COPD MANAGEMENT UTILIZING THE BREATHING WITH CARE SPECIALTY PROGRAM.] Future Scheduled Test SN TO INST RUCT PATIENT/CAREGIVER ON HEART FAILURE MANAGEMENT UTILIZING THE MATTERS OF THE HEART SPECIALTY PROGRAM. [code = SN TO INSTRUCT PATIENT/CAREGIVER ON HEART FAILURE MANAGEMENT UTILIZING THE MATTERS OF THE HEART SPECIALTY PROGRAM.] Future Scheduled Test SKILLED NU RSE TO ASSESS ANXIETY AND PROVIDE ASSISTANCE TO PATIENT FOR UNDERSTANDING AND MANAGEMENT OF FEELINGS. [code = SKILLED NURSE TO ASSESS ANXIETY AND PROVIDE ASSISTANCE TO PATIENT FOR UNDERSTANDING AND MANAGEMENT OF FEELINGS.] Future Scheduled Test SKILLED NU RSE TO PROVIDE ASSESSMENT AND TEACHING/REINFORCEMENT OF MANAGEMENT OF DEPRESSION INCLUDING DISEASE PROCESS, MEDICATION MANAGEMENT, COPING SKILLS AND IDENTIFY CHANGES ASSOCIATED WITH DEPRESSIVE DISORDERS FOR EARLY INTERVENTION. [code = SKILLED NURSE TO PROVIDE ASSESSMENT AND TEACHING/REINFORCEMENT OF MANAGEMENT OF DEPRESSION INCLUDING DISEASE PROCESS, MEDICATION MANAGEMENT, COPING SKILLS AND IDENTIFY CHANGES ASSOCIATED WITH DEPRESSIVE DISORDERS FOR EARLY INTERVENTION.] Future Scheduled Test SKILLED NU RSE TO INSTRUCT PATIENT/CAREGIVER ON COPD TO INCLUDE TEACHING AND SELF-MANAGEMENT RELATED TO COPD DISEASE PROCESS, SIGNS AND SYMPTOMS, AND COMPLICATIONS. [code = SKILLED NURSE TO INSTRUCT PATIENT/CAREGIVER ON COPD TO INCLUDE TEACHING AND SELF-MANAGEMENT RELATED TO COPD DISEASE PROCESS, SIGNS AND SYMPTOMS, AND COMPLICATIONS.] Future Scheduled Test SKILLED NU RSE FOR O/A, TEACHING AND SELF-MANAGEMENT RELATED TO HEART FAILURE. INSTRUCT PATIENT/CAREGIVER ON SIGNS AND SYMPTOMS OF EXACERBATION TO REPORT AND IMPORTANCE OF OBTAINING AND RECORDING DAILY WEIGHT AND/OR MEASUREMENTS. SN OR TRAINED PATIENT/CAREGIVER TO OBTAIN WEIGHT DAILY AND WEIGHT GAIN OF 2 LBS OVERNIGHT OR 5 LBS IN 1 WEEK TO BE REPORTED TO PHYSICIAN/PROVIDER. IF UNABLE TO WEIGH PATIENT, SN OR TRAINED PATIENT/CAREGIVER TO OBTAIN MEASUREMENT OF CALVES IN CM DAILY AND REPORT AN INCREASE OF 2 CM TO PHYSICIAN/PROVIDER. [code = SKILLED NURSE FOR O/A, TEACHING AND SELF-MANAGEMENT RELATED TO HEART FAILURE. INSTRUCT PATIENT/CAREGIVER ON SIGNS AND SYMPTOMS OF EXACERBATION TO REPORT AND IMPORTANCE OF OBTAINING AND RECORDING DAILY WEIGHT AND/OR MEASUREMENTS. SN OR TRAINED PATIENT/CAREGIVER TO OBTAIN WEIGHT DAILY AND WEIGHT GAIN OF 2 LBS OVERNIGHT OR 5 LBS IN 1 WEEK TO BE REPORTED TO PHYSICIAN/PROVIDER. IF UNABLE TO WEIGH PATIENT, SN OR TRAINED PATIENT/CAREGIVER TO OBTAIN MEASUREMENT OF CALVES IN CM DAILY AND REPORT AN INCREASE OF 2 CM TO PHYSICIAN/PROVIDER.] Future Scheduled Test SKILLED NU RSE TO INSTRUCT PATIENT/CAREGIVER ON SIGNS AND SYMPTOMS, RISK FACTORS, COMPLICATIONS, AND MANAGEMENT OF ATRIAL FIBRILLATION. [code = SKILLED NURSE TO INSTRUCT PATIENT/CAREGIVER ON SIGNS AND SYMPTOMS, RISK FACTORS, COMPLICATIONS, AND MANAGEMENT OF ATRIAL FIBRILLATION.] Future Scheduled Test SKILLED NU RSE TO PROVIDE TEACHING ON SIGNS AND SYMPTOMS AND MANAGEMENT OF HYPERTENSION. [code = SKILLED NURSE TO PROVIDE TEACHING ON SIGNS AND SYMPTOMS AND MANAGEMENT OF HYPERTENSION.] Future Scheduled Test SKILLED NU RSE FOR O/A AND TEACHING ON SIGNS AND SYMPTOMS AND MANAGEMENT OF HYPOTENSION [code = SKILLED NURSE FOR O/A AND TEACHING ON SIGNS AND SYMPTOMS AND MANAGEMENT OF HYPOTENSION] Future Scheduled Test SKILLED NU RSE FOR INSTRUCTION/ REINFORCEMENT OF NEEDS RELATED TO NUTRITION/HYDRATION. [code = SKILLED NURSE FOR INSTRUCTION/ REINFORCEMENT OF NEEDS RELATED TO NUTRITION/HYDRATION.] Future Scheduled Test SKILLED NU RSE FOR O/A OF SELF-CARE DEFICITS AND TO PROVIDE TEACHING RELATED TO SAFE PROVISION OF ADLS. [code = SKILLED NURSE FOR O/A OF SELF-CARE DEFICITS AND TO PROVIDE TEACHING RELATED TO SAFE PROVISION OF ADLS.] Future Scheduled Test SKILLED NU RSE FOR O/A AND SKILLED TEACHING RELATED TO SIGNS AND SYMPTOMS OF INFECTION AND INFECTION CONTROL MEASURES. [code = SKILLED NURSE FOR O/A AND SKILLED TEACHING RELATED TO SIGNS AND SYMPTOMS OF INFECTION AND INFECTION CONTROL MEASURES.] Future Scheduled Test SKILLED NU RSE TO INSTRUCT PATIENT/CAREGIVER ON PREVENTION OF SEPSIS, AND SIGNS AND SYMPTOMS OF SEPSIS TO REPORT. [code = SKILLED NURSE TO INSTRUCT PATIENT/CAREGIVER ON PREVENTION OF SEPSIS, AND SIGNS AND SYMPTOMS OF SEPSIS TO REPORT.] Future Scheduled Test SKILLED NU RSE FOR MEDICATION ADMINISTRATION PER MEDICATION LIST TO BE PERFORMED EVERY VISIT [code = SKILLED NURSE FOR MEDICATION ADMINISTRATION PER MEDICATION LIST TO BE PERFORMED EVERY VISIT] Future Scheduled Test SKILLED NU RSE TO OBTAIN BLOOD SPECIMEN VIA VENIPUNCTURE, FOR LABS ORDERED CMP, CBC WEEKLY ON FOR 4 WEEKS, OBTAIN LAB RESULTS AND REPORT TO PHYSICIAN. [code = SKILLED NURSE TO OBTAIN BLOOD SPECIMEN VIA VENIPUNCTURE, FOR LABS ORDERED CMP, CBC WEEKLY ON FOR 4 WEEKS, OBTAIN LAB RESULTS AND REPORT TO PHYSICIAN.] Future Scheduled Test PHYSICAL T HERAPIST TO EVALUATE PATIENT FOR WEAKNESS, ADLS. [code = PHYSICAL THERAPIST TO EVALUATE PATIENT FOR WEAKNESS, ADLS.] Future Scheduled Test OCCUPATION AL THERAPIST TO EVALUATE PATIENT FOR WEAKNESS, ADLS. [code = OCCUPATIONAL THERAPIST TO EVALUATE PATIENT FOR WEAKNESS, ADLS.] Future Scheduled Test HOME HEALT H AIDE SERVICES FOR ASSISTANCE WITH PERSONAL CARE AND ADLS SECONDARY TO FUNCTIONAL LIMITATIONS [code = HOME HEALTH AIDE SERVICES FOR ASSISTANCE WITH PERSONAL CARE AND ADLS SECONDARY TO FUNCTIONAL LIMITATIONS] Future Scheduled Test OCCUPATION AL THERAPY TO EVALUATE AND TREAT. OCCUPATIONAL THERAPY EVALUATION COMPLETED. NO ADDITIONAL VISITS RECOMMENDED AT THIS TIME. [code = OCCUPATIONAL THERAPY TO EVALUATE AND TREAT. OCCUPATIONAL THERAPY EVALUATION COMPLETED. NO ADDITIONAL VISITS RECOMMENDED AT THIS TIME.] Goal Patient Goal - TO NOT GO REBECA TO HOSPITAL Goal Provider Goal - A PLAN OF CARE WILL BE ESTABLISHED THAT MEETS PATIENT'S LONG TERM NEEDS AND INCLUDES PATIENT GOAL FOR HOME HEALTH. Goal Provider Goal - PATIENT/CAREGIVER WILL VERBALIZE UNDERSTANDING OF EDUCATION PROVIDED ON MEDICATIONS BY THE END OF THE CERTIFICATION PERIOD. Goal Provider Goal - PATIENT WILL HAVE SUPPORT MEASURES ESTABLISHED TO PREVENT HOSPITALIZATION AND ED USE AND PATIENT/CAREGIVER WILL VERBALIZE/DEMONSTRATE METHODS TO REDUCE AVOIDABLE HOSPITALIZATION AND ED USE BY END OF EPISODE. Goal Provider Goal - PATIENT/CAREGIVER WILL VERBALIZE UNDERSTANDING OF DISCHARGE PLANNING INSTRUCTIONS BY DATE OF DISCHARGE. Goal Provider Goal - PATIENT/CAREGIVER WILL VERBALIZE/DEMONSTRATE EFFECTIVE ENVIRONMENTAL SAFETY AND FALL PREVENTION STRATEGIES, WILL REMAIN SAFE IN THE COMMUNITY, AND WILL BE FREE OF DANGER TO SELF AND OTHERS THROUGHOUT THE CERTIFICATION PERIOD. Goal Provider Goal - PATIENT/CAREGIVER WILL DEMONSTRATE UNDERSTANDING OF PHARMACOLOGIC AND NONPHARMACOLOGIC PAIN CONTROL MEASURES AND PATIENT WILL HAVE IMPROVEMENT IN PAIN INTERFERING WITH ACTIVITY EVIDENCED BY PAIN CONTROLLED AT LEVEL OF 2 OR LESS BY END OF CERTIFICATION PERIOD. Goal Provider Goal - PATIENT/CAREGIVER WILL VERBALIZE UNDERSTANDING OF PRESSURE ULCER PREVENTION BY END OF THE EPISODE. Goal Provider Goal - PATIENT/CAREGIVER WILL DEMONSTRATE MANAGEMENT OF COPD A RESULT OF PARTICIPATION IN BREATHING WITH CARE SPECIALTY PROGRAM. Goal Provider Goal - PATIENT/CAREGIVER WILL DEMONSTRATE MANAGEMENT OF HEART FAILURE A RESULT OF PARTICIPATION IN MATTERS OF THE HEART SPECIALTY PROGRAM. Goal Provider Goal - SYMPTOMS OF ANXIETY ARE IDENTIFIED AND INTERVENTIONS INITIATED TO ENABLE PATIENT TO UNDERSTAND AND MANAGE FEELINGS THROUGHOUT EPISODE. Goal Provider Goal - PATIENT/CAREGIVER WILL VERBALIZE/DEMONSTRATE UNDERSTANDING OF THE MANAGEMENT OF DEPRESSION THROUGHOUT THE CERTIFICATION PERIOD AND SYMPTOMS ARE IDENTIFIED AND MANAGED TO MAINTAIN PATIENT SAFETY IN THE HOME. Goal Provider Goal - PATIENT/CAREGIVER WILL VERBALIZE/DEMONSTRATE KNOWLEDGE AND MANAGEMENT OF COPD BY END OF EPISODE. Goal Provider Goal - PATIENT/CAREGIVER WILL VERBALIZE/DEMONSTRATE KNOWLEDGE AND MANAGEMENT OF HEART FAILURE DISEASE PROCESS BY END OF EPISODE. Goal Provider Goal - PATIENT/CAREGIVER WILL VERBALIZE UNDERSTANDING OF SIGNS AND SYMPTOMS, COMPLICATIONS, AND MANAGEMENT OF ATRIAL FIBRILLATION THROUGHOUT THE CERTIFICATION PERIOD. Goal Provider Goal - PATIENT/CAREGIVER WILL VERBALIZE SIGNS AND SYMPTOMS OF HYPERTENSION AND WILL BE ABLE TO DEMONSTRATE ABILITY TO MANAGE EXACERBATION BY END OF THE EPISODE. Goal Provider Goal - PATIENT/CAREGIVER WILL VERBALIZE SIGNS AND SYMPTOMS OF HYPOTENSION AND WILL BE ABLE TO DEMONSTRATE ABILITY TO MANAGE EXACERBATION BY END OF THE EPISODE. Goal Provider Goal - PATIENT/CAREGIVER WILL DEMONSTRATE ABILITY TO SELF MANAGE NEEDS RELATED TO NUTRITION/HYDRATION THROUGHOUT THE EPISODE. Goal Provider Goal - PATIENT/CAREGIVER WILL VERBALIZE/DEMONSTRATE UNDERSTANDING OF SAFE PROVISION OF ADLS BY THE END OF THE CERTIFICATION PERIOD. Goal Provider Goal - PATIENT/CAREGIVER WILL VERBALIZE/DEMONSTRATE UNDERSTANDING OF S/S OF INFECTION AND INFECTION CONTROL MEASURES. SIGNS AND SYMPTOMS OF INFECTION WILL BE IDENTIFIED AND PHYSICIAN NOTIFIED FOR PROMPT INTERVENTION THROUGHOUT THE CERTIFICATION PERIOD. Goal Provider Goal - PATIENT WILL BE FREE FROM INFECTION AND PATIENT/CAREGIVER WILL VERBALIZE UNDERSTANDING OF SIGNS AND SYMPTOMS AND METHODS TO PREVENT SEPSIS BY END OF THE EPISODE. Goal Provider Goal - PATIENT WILL COMPLY WITH MEDICATION WHEN NURSE ADMINISTERS THROUGHOUT CERTIFICATION PERIOD. Goal Provider Goal - SKILLED NURSE TO PERFORM LAB PROCEDURE AND REPORT RESULTS TO PHYSICIAN. Goal Provider Goal - A PHYSICAL THERAPY EVALUATION TO BE COMPLETED WITH RECOMMENDATIONS AND/OR WRITTEN PLAN OF TREATMENT ESTABLISHED FOR PHYSICIANS SIGNATURE. Goal Provider Goal - OCCUPATIONAL THERAPY EVALUATION TO BE COMPLETED WITH RECOMMENDATIONS AND WRITTEN PLAN OF TREATMENT ESTABLISHED FOR THE PHYSICIANS SIGNATURE. Goal Provider Goal - PATIENT WILL RECEIVE PERSONAL CARE AND ADL ASSISTANCE. Goal Provider Goal - NONE Encounters Start Date/Time End Date/Time Encounter Type Admission Type Attending [facility] Care Department Encounter ID Discharge Date Discharge Status Discharge Condition Discharge Reason Percent Goals Met 2025-01-08 00:00:00 2025-03-08 00:00:00 Outpatient [facility] [id number]
== END 2025-03-05 17:37 | disposition short-term general hospital (02) | DRG 291 ==
LOC: ER 17:35 → MS 18:34
PROVIDERS: Nurse Practitioner; Admitting Provider Family Medicine; Emergency Provider Emergency Medicine; PCP Family Medicine; Visit Provider Family Medicine
DX: I50.43 Acute on chronic combined systolic (congestive) and diastolic (congestive) heart failure (principal); A41.59 Other Gram-negative sepsis; E44.0 Moderate protein-calorie malnutrition; E87.1 Hypo-osmolality and hyponatremia; N17.9 Acute kidney failure, unspecified; L03.116 Cellulitis of left lower limb; I48.91 Unspecified atrial fibrillation; R06.00 Dyspnea, unspecified; Z95.810 Presence of automatic (implantable) cardiac defibrillator; R79.89 Other specified abnormal findings of blood chemistry; E87.5 Hyperkalemia; Z98.890 Other specified postprocedural states; Z87.440 Personal history of urinary (tract) infections; D50.9 Iron deficiency anemia, unspecified; E03.9 Hypothyroidism, unspecified; Z79.01 Long term (current) use of anticoagulants; C61 Malignant neoplasm of prostate; I25.2 Old myocardial infarction; Z79.899 Other long term (current) drug therapy; R09.02 Hypoxemia; I87.2 Venous insufficiency (chronic) (peripheral); N32.0 Bladder-neck obstruction; Z68.23 Body mass index [BMI] 23.0-23.9, adult
CPT/HCPCS: 36415; 51702; 51798; 71045; 76705; 80048; 80053; 81001; 83880; 84436; 84443; 84481; 84484; 85007; 85025; 85027; 87040; 87070; 87075; 87077; 87150; 87186; 93005; 93306; 93356; 94761; 97161; 97165; 99285; J0696; J1938

== ENCOUNTER 2025-03-31 10:59 | Outpatient (RCR) | payer MEDICARE, OTHER, SELFPAY ==
[2025-03-24 14:49] VITALS: BP 104/71; PULSE 67; TEMP 36.8; O2SAT 94
[2025-03-24 15:10] VITALS: BP 101/65
[2025-03-24] MEDS: BUMETANIDE 1 MG/4 ML VIAL 3 MG IVP (15:10)
--- NOTE | 2025-03-24 15:29 | PC.NURSE ---
1500 arrives ambulatory to chair 5. alert oriented. color pale skin warm and dry, respirations with ease 1505 # 24 iv saline lock inserted rt inner forearm, on 1 attempt, tolerated well. Bumex 3 mg ivp over approx 6 mins. patient tolerated well. Lungs clear posteriorly to auscultation, heart tones strong and regular. patient wearing support hose. noted some pre tibial pitting edema. 1530 tolerted bumex ivp without any s/s of reaction. provided patient with depends, up to bathroom, voids. changed into depends. tolerates activity without anyshortness of breath. IV dc'd catheter intact site clear. VS 101/64 P 78. 1535 Released ambulatory to private auto with daughter
[2025-03-31 13:50] VITALS: BP 112/69; PULSE 76; TEMP 36.6; O2SAT 97
[2025-03-31] MEDS: BUMETANIDE 1 MG/4 ML VIAL 3 MG IVP (14:01)
--- NOTE | 2025-03-31 14:33 | PC.NURSE ---
Pt. up to bathroom to void.
== END 2025-04-15 23:59 | disposition home or self-care (01) ==
LOC: INF 10:59
PROVIDERS: PCP Family Medicine; Visit Provider Internal Medicine Interventional Cardiology
DX: I50.22 Chronic systolic (congestive) heart failure (principal)
CPT/HCPCS: 96374

== ENCOUNTER 2025-04-06 17:23 | Emergency (ER) | payer MEDICARE, OTHER, SELFPAY ==
[2025-04-06 17:33] VITALS: BP 121/73; PULSE 78; TEMP 37; O2SAT 97; BMI 21.5
--- NOTE | 2025-04-06 17:48 | ED.GENADUL1 ---
HPI HPI - General Adult General Chief complaint: Extremity Problem, Nontraumatic Stated complaint: Adema Time Seen by Provider: 04/06/25 17:34 Source: patient Mode of arrival: walk-in Limitations: no limitations History of Present Illness HPI narrative: 85-year-old male presents here with chief complaint of chronic lower extremity swelling. Patient has a history of chronic heart failure takes Bumex and Eliquis. He states his nurse came to see him today and saw some swelling in his lower extremities. He feels this is his normal. She wanted him to be evaluated. Patient does not want anything performed including blood work. He has no pain or significant swelling to the lower extremities. Bilateral lower extremities are thin. He does have +1 edema noted to the left compared to the right. He has no calf pain or tenderness. Patient does not want anything performed. He wanted somebody to look at his legs for him. He wants to just go home and take his Bumex. Related Data Home Medications �Medication �Instructions �Recorded �Confirmed metoprolol succinate 25 mg 12.5 mg PO DAILY 09/26/23 04/06/25 tablet,extended release 24 hr apixaban 2.5 mg tablet (Eliquis) 5 mg PO Q12H 09/13/24 04/06/25 torsemide 20 mg tablet 20 mg PO BID 09/13/24 04/06/25 Held on 03/04/25. Instructions: Doctor's Order bumetanide 0.5 mg tablet 2 mg PO BID 11/21/24 04/06/25 dapagliflozin propanediol 10 mg 10 mg PO DAILY 03/04/25 04/06/25 tablet (Farxiga) levothyroxine 100 mcg tablet 100 mcg PO DAILY 03/04/25 04/06/25 liothyronine 5 mcg tablet 5 mcg PO .QD 03/04/25 04/06/25 mexiletine 150 mg capsule 150 mg PO BID 03/04/25 04/06/25 potassium chloride 20 mEq 20 meq PO BID 03/04/25 04/06/25 tablet,extended release potassium chloride 20 mEq 20 meq PO BID 03/04/25 03/04/25 tablet,extended release(part/cryst) spironolactone 25 mg tablet 25 mg PO .QD 03/04/25 04/06/25 Held on 03/04/25. Instructions: Doctor's Order thiamine HCl (vitamin B1) 100 mg 100 mg PO DAILY 03/04/25 04/06/25 capsule Allergies Allergy/AdvReac Type Severity Reaction Status Date / Time latex Allergy Severe Rash Verified 04/06/25 17:37 Opioid HPI Opioid Management Most Recent Opioid Data: Last Pain Scale 6 1224, 12:24 Last ORT Total Score 0 03/04/25, 18:51 Last ORT Risk Category Low Risk 03/04/25, 18:51 Review of Systems ROS Status of ROS 10 or more systems reviewed and unremarkable except as noted in history and below [facility] Medical History (Updated 04/06/25 @ 17:48 by Janice Garcia) Acute exacerbation of congestive heart failure �I50.9 - Heart failure, unspecified (ICD-10) Heart failure �I50.9 - Heart failure, unspecified (ICD-10) Pacemaker �Z95.0 - Presence of cardiac pacemaker (ICD-10) History of cardioversion �Z92.89 - Personal history of other medical treatment (ICD-10) CHF (congestive heart failure) �I50.9 - Heart failure, unspecified (ICD-10) Atrial fibrillation �I48.91 - Unspecified atrial fibrillation (ICD-10) Anemia �D64.9 - Anemia, unspecified (ICD-10) Dyspnea �R06.00 - Dyspnea, unspecified (ICD-10) Abrasion, multiple sites �T07.XXXA - Unspecified multiple injuries, initial encounter (ICD-10) Edema of both lower legs due to peripheral venous insufficiency �I87.2 - Venous insufficiency (chronic) (peripheral) (ICD-10) �R60.0 - Localized edema (ICD-10) GI bleed �K92.2 - Gastrointestinal hemorrhage, unspecified (ICD-10) Myocardial infarct �I21.9 - Acute myocardial infarction, unspecified (ICD-10) Prostate CA �C61 - Malignant neoplasm of prostate (ICD-10) Stroke �I63.9 - Cerebral infarction, unspecified (ICD-10) Cardiac defibrillator in place �Z95.810 - Presence of automatic (implantable) cardiac defibrillator (ICD-10) FH: carotid endarterectomy �Z82.49 - Family history of ischemic heart disease and other diseases of the circulatory system (ICD-10) Non-sustained ventricular tachycardia �I47.29 - Other ventricular tachycardia (ICD-10) Elevated troponin �R79.89 - Other specified abnormal findings of blood chemistry (ICD-10) CHF (congestive heart failure) �I50.9 - Heart failure, unspecified (ICD-10) Surgical History S/P triple vessel bypass �Z95.1 - Presence of aortocoronary bypass graft (ICD-10) S/P mitral valve clip implantation �Z98.890 - Other specified postprocedural states (ICD-10) �Z95.818 - Presence of other cardiac implants and grafts (ICD-10) Family History Brother Family history of CHF (congestive heart failure) Father Family history of myocardial infarction Social History (Updated 03/04/25 @ 18:51 by Kimmie Rajput) Within the past year, how often did you have a drink containing alcohol: never Score interpretation: A score less than 4 is consistent with normal alcohol consumption. Smoking status: Never smoker Non-prescribed substance use: denies use Highest level of school completed/degree received: some college, no degree Are you now , , , , never or living with a partner: Little interest or pleasure in doing things: not at all Feeling down, depressed, or hopeless: not at all Feel stressed/tense/nervous/anxious/difficulty sleeping: not at all Do you think of yourself as: straight/heterosexual Gender Identity: male Exam Narrative Exam Narrative: All Systems are negative except as noted/marked.All systems reviewed and otherwise negative Nurses note and vital signs reviewed and patient is not hypoxic. General: The patient appears well and in no apparent distress. Patient is resting comfortably on cart. Skin: Warm, dry, no pallor noted. There is no rash noted. Head: Normocephalic, atraumatic Cardiovascular: Regular Rate and Rhythm Respiratory: Patient is in no distress, no accessory muscle use, lungs are clear to auscultation, no wheezing, rales or rhonchi Back: non-tender, no CVA tenderness bilaterally to percussion. GI: Normal bowel sounds, no tenderness to palpation, no masses appreciated. No rebound, guarding, or rigidity noted. Musculoskeletal:+1 lower extremity edema, left greater than right, no calf pain or tenderness The patient has no evidence of calf tenderness, symmetrical pulses noted bilaterally Neurological: A&O x4, normal speech Psychiatric: Cooperative Constitutional Vital Signs, click to edit/add: Last Vital Signs Temp 98.6 F 04/06/25 17:33 Pulse 78 04/06/25 17:33 Resp 20 04/06/25 17:33 BP 121/73 04/06/25 17:33 Pulse Ox 97 04/06/25 17:33 O2 Del Method Room Air 04/06/25 17:33 Course Vital Signs Vital signs: Vital Signs Temperature 98.6 F 04/06/25 17:33 Pulse Rate 78 04/06/25 17:33 Respiratory Rate 20 04/06/25 17:33 Blood Pressure 121/73 04/06/25 17:33 Pulse Oximetry 97 04/06/25 17:33 Oxygen Delivery Method Room Air 04/06/25 17:33 Temperature 98.6 F 04/06/25 17:33 Pulse Rate 78 04/06/25 17:33 Respiratory Rate 20 04/06/25 17:33 Blood Pressure 121/73 04/06/25 17:33 Pulse Oximetry 97 04/06/25 17:33 Oxygen Delivery Method Room Air 04/06/25 17:33 Medical Decision Making MDM Narrative Medical decision making narrative: 85-year-old male presents here with chief complaint of chronic lower extremity swelling. Patient has a history of chronic heart failure takes Bumex and Eliquis. He states his nurse came to see him today and saw some swelling in his lower extremities. He feels this is his normal. She wanted him to be evaluated. Patient does not want anything performed including blood work. He has no pain or significant swelling to the lower extremities. Bilateral lower extremities are thin. He does have +1 edema noted to the left compared to the right. He has no calf pain or tenderness. Patient does not want anything performed. He wanted somebody to look at his legs for him. He wants to just go home and take his Bumex. Patient was offered to have a lower extremity ultrasound to his legs. He denies and states he is currently on Eliquis. He wants to follow-up with his legal examiner as scheduled 2 days from now. Patient agrees to return to the emergency room should he have any increased swelling or pain. He has no pain today. Patient looks well. He is going to discharge to home and follow-up with his legal examiner as scheduled. Differential Diagnosis Differential Diagnosis: lower extremity edema, swelling Medical Records Medical records reviewed: Yes I reviewed the patient's medical records Lab Data Lab results reviewed: Yes I reviewed the patient's lab results Discharge Plan Discharge Chief Complaint: Extremity Problem, Nontraumatic Clinical Impression: Bilateral lower extremity edema Patient Disposition: Home, Self-Care Time of Disposition Decision: 17:47 Condition: Good Prescriptions / Home Meds: No Action Eliquis 2.5 mg tablet 5 mg PO Q12H torsemide 20 mg tablet 20 mg PO BID bumetanide 0.5 mg tablet 2 mg PO BID Patient Comments: give 2mg po AM and PM. metoprolol succinate 25 mg tablet extended release 24 hr 12.5 mg PO DAILY levothyroxine 100 mcg tablet 100 mcg PO DAILY mexiletine 150 mg capsule 150 mg PO BID potassium chloride 20 mEq tablet,ER particles/crystals 20 meq PO BID thiamine HCl (vitamin B1) 100 mg capsule 100 mg PO DAILY liothyronine 5 mcg tablet 5 mcg PO .QD potassium chloride 20 mEq tablet extended release 20 meq PO BID spironolactone 25 mg tablet 25 mg PO .QD dapagliflozin propanediol [Farxiga] 10 mg tablet 10 mg PO DAILY Print Language: Iranian Instructions: Leg Edema (ED) Referrals: Samm Serrano MD [Primary Care Provider, Family Practice] - 1 week
== END 2025-04-06 18:48 | disposition home or self-care (01) ==
PROVIDERS: Emergency Provider Emergency Medicine; PCP Family Medicine
DX: R60.0 Localized edema (principal); I50.9 Heart failure, unspecified; Z79.899 Other long term (current) drug therapy; Z79.01 Long term (current) use of anticoagulants; Z95.1 Presence of aortocoronary bypass graft; Z95.818 Presence of other cardiac implants and grafts
CPT/HCPCS: 99281

== ENCOUNTER 2025-04-08 10:47 | Outpatient (OUT) | payer MEDICARE, OTHER, SELFPAY ==
--- OUTSIDE RECORDS SUMMARY | 2024-10-08 10:45 | XMS_ITS ---
Author Organization [facility] vices Address [address] [place] [phone] Care Team Providers Care Tax Preparer Name Role Phone Kayli Stokes Unavailable [phone] REASON FOR VISIT SDF Social History Sex Assigned At : Social History Observation Description Sex Assigned At Male Encounters Encounter Location Date Provider Diagnosis [facility] [address] [place], [place] [id number] 10/08/2024 Kayli Stokes Plan Of Treatment No Information Progress Notes * José Miguel ROTHDOB: 2 (85 yo M)Acc No.[id number]:10/08/2024 Dental Note Patient: José Miguel BRIGGS Provider: Marisa Stokes DDS :1940 A ge:84 Y S ex:Male Date:10/08/2024 Address:[address] [place], [place] [id number] Subjective: * Chief Complaints: * 1 . SDF. * Medical History: Objective: * Vitals: Assessment: Plan: * Treatment: * Billing Information: * Visit Code: * Procedure Codes: * Electronic signature of Helen Stokes DDS on 04/08/2025 at 09:25 AM EDT Sign off status: Pending * Provider: Marisa Stokes DDS Date: 10/08/2024 Generated for Tripi ng/Falaurel/eTransmitting on: 04/08/2025 09:25 AM EDT
--- OUTSIDE RECORDS SUMMARY | 2024-11-25 14:24 | XMS_ITS ---
Author Organization Corporate Office Address [address] [place] [address] [address] [place] [address] Care Team Providers Care [employer] Ambassador Name Role Phone Maggie YOUNG, Samm Primary Care Provider Laila Juan DO Unavailable REASON FOR VISIT new labs Encounters Encounter Location Date Provider Diagnosis [facility] [address] [place] [address] 11/25/2024 Laila Marina Plan Of Treatment Next Appt Details Provider Name:Laila quintana, 08/03/2025 03:00:00 PM, [address], [place], [address], Progress Notes * IRA PramoddgDOB: 2 (84 yo M)Acc No.[id number]:11/25/2024 Patient: Jos éMiguel BRIGGS :1940 A ge:84 Y S ex:Male Address:[address] [place] [address] [address], [place], [address] * true * Date: Generated for Printi ng/Faxing/eTransmitting on: 0 04/08/2025 09:25 AM EDT
--- OUTSIDE RECORDS SUMMARY | 2025-01-20 13:44 | XMS_ITS ---
Author Organization Corporate Office Address [address] [place] [address] [address] [place] [address] Care Team Providers Care Veterinary Surgery Technician Name Role Phone Samm Serrano MD Primary Care Provider Laila Juan DO Unavailable REASON FOR VISIT results Encounters Encounter Location Date Provider Diagnosis [facility] Endocrinology [address] [place] [address] 01/20/2025 Laila Marina Plan Of Treatment Next Appt Details Provider Name:Laila quintana, 08/03/2025 03:00:00 PM, [address], [place], [address], Progress Notes * José Miguel ROTHDOB: 2 (84 yo M)Acc No.[id number]:01/20/2025 Patient: José Miguel BRIGGS :1940 A ge:84 Y S ex:Male Address:[address] [place] [address] [address], [place], [address] * true * Date: Generated for Printi ng/Faxing/eTransmitting on: 0 04/08/2025 09:25 AM EDT
--- OUTSIDE RECORDS SUMMARY | 2025-01-26 12:57 | XMS_ITS ---
Author Organization Corporate Office Address [address] [place] [address] [address] [place] [address] Care Team Providers Care Software Technician Name Role Phone Maggie YOUNG, Samm Primary Care Provider Laila Juan DO Unavailable REASON FOR VISIT Update Demographics - Personal Info Encounters Encounter Location Date Provider Diagnosis [facility] Center Endocrinology [address] [place] [address] 01/26/2025 Laila Marina Plan Of Treatment Next Appt Details Provider Name:Laila quintana, 08/03/2025 03:00:00 PM, [address], [place], [address], Progress Notes * IRA José MiguelDOB: 2 (84 yo M)Acc No.[id number]:01/26/2025 Patient: José Miguel BRIGGS :1940 A ge:84 Y S ex:Male Address:[address] [place] [address] [address], [place], [address] * true * Date: Generated for Printi ng/Faxing/eTransmitting on: 0 04/08/2025 09:25 AM EDT
--- OUTSIDE RECORDS SUMMARY | 2025-03-25 15:30 | XMS_ITS | Encounter Summary ---
Author Organization [facility] Address [address] [place] [address] Care Team Providers Care Application Lead Name Role Phone Samm Serrano MD Primary Care Provider [phone] Reason for Visit * Reason Comments Nail care José Miguel Antonio Jr. is a 84 y.o. male who presents for Toenail Care. Pt is here today with his daughter for nail care, he is not diabetic. His last A1c 5.6/SS: 11 Encounter Details Date Type Department Care Team (Latest Contact Info) Description 03/25/2025 3:30 PM EDT Procedure Visit [facility] [address] [place] [phone] Rohit Covington, DPPaulina [address] [place], [place] [id number] Dystrophic nail (Primary Dx); Pain around toenail, right foot; Pain around toenail, left foot; Peripheral arterial disease Social History Tobacco Use Types Packs/Day Years Used Date Smoking Tobacco: Unknown Tobacco Cessation:Counseling Given: Not Answered Alcohol Use Standard Drinks/Week Comments Not Currently 0 (1 standard drink = 0.6 oz pur e alcohol) Sex and Gender Information Value Date Recorded Sex Assigned at Not on file Legal Sex Male 8:01 PM EDT Gender Identity Not on file Sexual Orientation Not on file documented as of this encounter Last Filed Vital Signs Vital Sign Reading Time Taken Comments Blood Pressure - - Pulse - - Temperature - - Respiratory Rate - - Oxygen Saturation - - Inhaled Oxygen Concentration - - Weight 68 kg (150 lb) 03/25/2025 3:18 PM EDT Height 182.9 cm (6') 03/25/2025 3:18 PM EDT Body Mass Index 20.34 03/25/2025 3:18 PM EDT documented in this encounter Progress Notes * Rohit Covington, DPM - 03/25/2025 3:30 PM EDT Images from the original note were not included. Subjective Patient ID: José Miguel Antonio Jr. is a 85 y.o. male who presents for Nail care (José Miguel Antonio Jr.is a 84 y.o. male who presents for Toenail Care. Pt is here today with his daughter for nail care, he is not diabetic. His last A1c 5.6/SS: 11). HPI Patient recently discharge from hospital stay for fluid retention condition. Presents for care of deformed toenails. Chronic, stable condition multiple years duration. Denies history of injury or trauma. Identifies multiple digits as problematic/mildly symptomatic; over the past several weeks or so; describing pressure discomfort with footwear; as well as catching and snagging on clothing, bed sheetsetc.. Denies bleeding or drainage. Risk factors: Medical [...] General assessment: Alert and oriented. Pleasant disposition. Independently ambulatory. Wearing newbalance footwear. Accompanied by his daughter, Crys. Vascular: DP faintly palpable bilateral. PT faintly palpable bilateral. CFT slightly delayed all digits. Gradient temperature: Warm-cool bilateral with stable acrocyanosis of the digits. Symmetrical, mild, non-pitting edema bilateral ankles. Neurologic: Tactile and light touch sensation intact. Dermatologic: Intact. Skin turgor is fair. Web space areas are clean, dry, non-inflamed. Mild non-inflamed xerosis and scaling of both heels. Toenail pathology: All [...] stable PAD (Q8). Chronic, stable acrocyanosis. Plan: Remains well satisfied with a conservative and palliative care approach. Encourage compliance with compression sock therapy. Recommend Amlactin cream each night both feet. Procedure: Toenail debridement: Aseptic technique: Hand and power instrumentation: Onychodebridement in length and thickness, with curettage of any cryptotic margins, all periungual debris; providingeffective symptom and pressure relief; reducing shoe and digital trauma; reducing potential risks as sociated with the dysvascular foot condition and related complications. This note was created with the assistance of a speech recognition program. While intending to generate a timely document that accurately reflects the content of the visit, no guarantee can be provided that every grammatical or spelling mistake has been or will be identified or corrected. Thank you for your understanding. Rohit Covington DPM documented in this encounter Plan of Treatment Upcoming Encounters Date Type Department Care Team (Late st Contact Info) Description 05/13/2025 3:35 PM EDT Office Visit [facility] [address] [facility] [address] [place] [phone] Krystal Turner MD [address] [facility] [address] [place] [address] 07/07/2025 1:00 PM EDT Procedure Visit [facility] [address] [place] [phone] Rohit Covington DPM [address] [place], [place] [phone] documented as of this encounter Visit Diagnoses Diagnosis Dystrophic nail- Primary Other specified disease of nail Pain around toenail, right foot Pain around toenail, left foot Peripheral arterial disease Unspecified peripheral vascular disease documented in this encounter Care Teams Application Lead Relationship Specialty Start Date End Date Samm Serrano MD [address] [place] [address] PCP - General Family Medicine 03/24/25 documented as of this encounter
--- OUTSIDE RECORDS SUMMARY | 2025-03-29 13:57 | XMS_ITS ---
Author Organization [facility] in [place] Address [address] [place] [address] Care Team Providers Care Robotics Systems Engineer Name Role Phone Sesar Serrano Primary Care Provider [phone] REASON FOR VISIT review labs- Encounters Encounter Location Date Provider Diagnosis [facility] [address] [place] [address] 03/29/2025 Sesar Serrano Plan Of Treatment No Information Progress Notes * José Miguel ROTH LDOB: [birth year] (85 yo M)Acc No.[id number]:03/29/2025 Patient: Nona José Miguel SAEZ :1940 A ge:85 Y S ex:Male Address:[address] [place] [address], [phone] * true * Date: Generated for Tripi hakeem/Oswaldog/eTransmitting on: 0 04/08/2025 10:52 AM EDT
--- OUTSIDE RECORDS SUMMARY | 2025-03-30 12:33 | XMS_ITS ---
Author Organization [facility] [place] Address [address] [place] [address] Care Team Providers Care Oyster Culler Name Role Phone Sesar Serrano Primary Care Provider REASON FOR VISIT already addressed labs Encounters Encounter Location Date Provider Diagnosis [facility] [address] [place] [address] 03/30/2025 Sesar Serrano Plan Of Treatment No Information Progress Notes * José Miguel ROTH LDOB: [birth year] (85 yo M)Acc No.[id number]:03/30/2025 Patient: Nona José Miguel SAEZ :1940 A ge:85 Y S ex:Male Address:[address] [place] [address], [phone] * true * Date: Generated for Tripi ng/Fatommyg/eTransmitting on: 0 04/08/2025 09:25 AM EDT
--- OUTSIDE RECORDS SUMMARY | 2025-04-06 15:32 | XMS_ITS ---
Author Organization [facility] [place] Address [address] [place] [address] Care Team Providers Care City Attorney Name Role Phone Sesar Serrano Primary Care Provider REASON FOR VISIT Lab Results Encounters Encounter Location Date Provider Diagnosis [facility] [address] [place] [address] 04/06/2025 Sesar Serrano Plan Of Treatment No Information Progress Notes * José Miguel ROTH LDOB: [birth year] (85 yo M)Acc No.[id number]:04/06/2025 Patient: Nona José Miguel SAEZ :1940 A ge:85 Y S ex:Male Address:[address] [place] [address], [phone] * true * Date: Generated for Tripi hakeem/Oswaldog/eTransmitting on: 0 04/08/2025 09:25 AM EDT
--- OUTSIDE RECORDS SUMMARY | 2025-04-08 09:20 | XMS_ITS | Encounter Summary ---
Author Organization [facility] Address [address] [place] [address] Care Team Providers Care Physical Laboratory Assistant Name Role Phone Samm Serrano MD Primary Care Provider [phone] Reason for Visit * Reason Comments Congestive Heart Failure Coronary Artery Disease Hypertension Atrial Fibrillation Hyperlipidemia Encounter Details Date Type Department Care Team (Late st Contact Info) Description 04/08/2025 9:20 AM EDT Office Visit [facility] [address] [place] [address] Conchita Rivera, DOROTHY [address] [place] [phone] Stage 3b chronic kidney disease (CMS/HCC) (Primary Dx); Chronic systolic heart failure (CMS/HCC); Abnormal liver enzymes Social History Tobacco Use Types Packs/Day Years Used Date Smoking Tobacco: Former Cigarettes Smokeless Tobacco: Never Alcohol Use Standard Drinks/Week Comments Not Currently 0 (1 standard drink = 0.6 oz pur e alcohol) [facility] Utilities Answer Date Recorded In the past 12 months has e Helishopter, gas, oil, or water company threatened to shut off services in your home? No 03/05/2025 Humiliation, Afraid, Rape, and Kick questionnair e Answer Date Recorded Within the last year, have y ou been afraid of your partner or ex-partner? No 03/05/2025 Emotionally Abused Not on file 03/05/2025 Physically Abused Not on file 03/05/2025 Sexually Abused Not on file 03/05/2025 Overall Financial Resource Strain (CARDIA) Answe r Date Recorded How hard is it for you to pa y for the very basics like food, housing, medical care, and heating? Not hard at all 03/05/2025 PHQ-2 Answer Date Recorded Patient Health Questionnaire-2 Score 0 12/25/2023 Transportation Answer Date Recorded In the past 12 months, has l ack of transportation kept you from medical appointments or from getting medications? No 03/05/2025 Lack of Transportation (Non-Medical) Not on file 03/05/2025 Housing Stability Vital Sign Answer Akbar e Recorded In the last 12 months, was t here a time when you were not able to pay the mortgage or rent on time? No 03/05/2025 In the past 12 months, how m any times have you moved where you were living? 0 03/05/2025 At any time in the past 12 m [facility], were you homeless or living in a prison (including now)? No 03/05/2025 Hunger Vital Sign Answer Date Recorded Within the past 12 months, y ou worried that your food would run out before you got the money to buy more. Never true 03/05/20 25 Ran Out of Food in the Last Year Not on file 03/05/2025 Sex and Gender Information Value Date Recorded Sex Assigned at Male 03/21/2025 2:54 PM EDT Legal Sex Male 10:54 PM EDT Gender Identity Male 03/21/2025 2:54 PM EDT Sexual Orientation Heterosexual or Straight 02/2025 2:54 PM EDT documented as of this encounter Last Filed Vital Signs Vital Sign Reading Time Taken Comments Blood Pressure 113/68 04/08/2025 9:27 AM EDT Pulse 73 04/08/2025 9:27 AM EDT Temperature - - Respiratory Rate - - Oxygen Saturation 96% 04/08/2025 9:27 AM EDT Inhaled Oxygen Concentration - - Weight 72.6 kg (160 lb) 04/08/2025 9:27 AM EDT Height 182.9 cm (6') 04/08/2025 9:27 AM EDT Body Mass Index 21.7 04/08/2025 9:27 AM EDT documented in this encounter Patient Instructions * Patient Instructions* Conchita Rivera CNP - 04/08/2025 9:20 AM EDT *Take an extra dose of bumex in the AM if you have a 3lb weight gain in a day or 5lbs in a week. Take this extra dose in the AM for 2-3 days, until weight comes back down. If weight is not coming down, or worsening, come to infusion center for a dose of IV bumex. *Cut potassium in half to 10mEq daily. *Have follow-up liver function labs done today *Continue weekly follow-up labs with Dr. Serrano - BMP/BNP documented in this encounter Plan of Treatment Upcoming Encounters Date Type Department Care Team (Late st Contact Info) Description 04/26/2025 2:30 PM EDT Office Visit [address] [address] Ozzie Crain MD [address] [facility] [address] [facility] [place] [phone] Scheduled Orders Name Type Priority Associated Diagnoses Orde r Schedule Hepatic function panel Lab Routine Abnormal liver enzymes Expected: 04/08/2025 (Approximate), Expires: 04/08/2026 Phosphorus Lab Routine Stage 3b chronic kidney disease (CMS/HCC) Expected: 04/08/2025 (Approximate), Expires: 04/08/2026 Ammonia Lab Routine Abnormal liver enzymes Expected: 04/08/2025 (Approximate), Expires: 04/08/2026 documented as of this encounter Visit Diagnoses Diagnosis Stage 3b chronic kidney disease (CMS/HCC)- Primary Chronic systolic heart failure (CMS/HCC) Chronic systolic heart failure Abnormal liver enzymes documented in this encounter Care Teams Physical Laboratory Assistant Relationship Specialty Start Date End Date Samm Serrano MD [address] [facility] [address] [address] PCP - General 05/16/22 documented as of this encounter
--- OUTSIDE RECORDS SUMMARY | 2025-04-08 10:52 | XMS_ITS | Encounter Summary ---
Author Organization [facility] Address [address] [place] [address] Care Team Providers Care Midwife Name Role Phone Samm Serrano MD Primary Care Provider +-4 Tom Gonzalez Unavailable [phone] Andreas Pierre MD Unavailable Virgil Carrillo MD Unavailable Jethro Mendoza MD Unavailable Isaías Kinney MD Unavailable [phone] Source Comments In the event this information is protected by the Federal Confidentiality of Alcohol and Drug AbusePatient Records regulations: The Federal rules restrict any use of the information to criminally investigate or prosecute any alcohol or drug abuse patient.[facility] Encounter Details Date Type Department Care Team (Late st Contact Info) Description 01/19/2022 Get Medical Advice Radiation Oncology [address] [place] [address] [place] [address] Yung Andrade MD [address] [address] Medication Question (Not Renewal) Social History Tobacco [...] N ot on file 08/21/2020 Data from: https://www.neighborhoodatlas.medicine.[facility].edu/. Last address used for calculation Not [...] Upcoming Encounters Date Type Department Care Team (Latest Contact Info) Description 06/30/2025 10:00 AM EDT Office Visit Cardiology [address] [place] [address] Isaías Kinney MD [address] [place] [address] DX: Chronic diastolic heart failure 09/20/2025 8:15 AM EST Procedure Cardiology [address] [place] [id number] Dx. Atherosclerotic heart disease of [place] coronary artery with other forms of angina pectoris 09/20/2025 9:00 AM EST Appointment Cardiology [address] [place] [address] Dx. Atherosclerotic heart disease of [place] coronary artery with other forms of angina pectoris 09/20/2025 9:45 AM EST Office Visit Cardiology [address] [place] [address] Nj Wei MD [address] [place] [address] Dx. Atherosclerotic heart disease of [place] coronary artery with other forms of angina pectoris documented as of this encounter Visit Diagnoses Not on filedocumented in this encounter Care Teams Midwife Relationship Specialty Start Date End Date Samm Serrano MD PCP - General Family Medicine 05/30/12 Tom Gonzalez [address] [place] [address] Primary Staff Physician Cardiology 12/02/18 Andreas Pierre MD [address] [place], [place] [id number] Primary Staff Physician Cardiology 04/26/23 Virgil Carrillo MD [address] [place] [address] Primary Staff Physician Cardiology 10/29/23 Jethro Mendoza MD [address] [place] [address] Primary Staff Physician Cardiology 12/26/23 Isaías Kinney MD [address] [place] [address] Primary Staff Physician Cardiology 01/10/24 documented as of this encounter
--- OUTSIDE RECORDS SUMMARY | 2025-04-08 10:52 | XMS_ITS | Encounter Summary ---
Author Organization [facility] Address [address] [place] [address] Care Team Providers Care Paper Sheeter Name Role Phone Samm Serrano MD Primary Care Provider +-4 Tom Gonzalez Unavailable [phone] Andreas Pierre MD Unavailable Virgil Carrillo MD Unavailable Jethro Mendoza MD Unavailable Isaías Kinney MD Unavailable [phone] Source Comments In the event this information is protected by the Federal Confidentiality of Alcohol and Drug AbusePatient Records regulations: The Federal rules restrict any use of the information to criminally investigate or prosecute any alcohol or drug abuse patient.[facility] Encounter Details Date Type Department Care Team (Late st Contact Info) Description 01/22/2022 Get Medical Advice Radiation Oncology [address] [place] [address] [place] [address] Yung Andrade MD [address] [place] [address] Medication Question (Not Renewal) Social History Tobacco [...] N ot on file 08/21/2020 Data from: https://www.neighborhoodatlas.medicine.[facility].edu/. Last address used for calculation Not [...] 10:00 AM EDT Office Visit Cardiology [address] [place] [address] Isaías Kinney MD [address] [place] [address] DX: Chronic diastolic heart failure 09/20/2025 8:15 AM EST Procedure Cardiology [address] [place] [id number] Dx. Atherosclerotic heart disease of [place] coronary artery with other forms of angina pectoris 09/20/2025 9:00 AM EST Appointment Cardiology [address] [place] [address] Dx. Atherosclerotic heart disease of [place] coronary artery with other forms of angina pectoris 09/20/2025 9:45 AM EST Office Visit Cardiology [address] [place] [address] Nj Wei MD [address] [place] [address] Dx. Atherosclerotic heart disease of [place] coronary artery with other forms of angina pectoris documented as of this encounter Visit Diagnoses Not on filedocumented in this encounter Care Teams Paper Sheeter Relationship Specialty Start Date End Date Samm Serrano MD PCP - General Family Medicine 05/30/12 Tom Gonzalez [address] [place] [address] Primary Staff Physician Cardiology 12/02/18 Andreas Pierre MD [address] [place], [place] [id number] Primary Staff Physician Cardiology 04/26/23 Virgil Carrillo MD [address] [place] [address] Primary Staff Physician Cardiology 10/29/23 Jethro Mendoza MD [address] [place] [address] Primary Staff Physician Cardiology 12/26/23 Isaías Kinney MD [address] [place] [address] Primary Staff Physician Cardiology 01/10/24 documented as of this encounter
--- OUTSIDE RECORDS SUMMARY | 2025-04-08 10:52 | XMS_ITS | Patient Health Record ---
Author Organization [facility] in [place] Address [address] [place] [address] Care Team Providers Care Batter Depositor Name Role Phone Sesar Serrano Primary Care Provider [phone] FRANCISCA SERRANO Unavailable [phone] Allergies Allergen (clinical drug ingredient) Drug/Non Drug Allergy documented on EMR Reaction Allergy Type Onset Date Status Adhesive rash Allergy Active Latex Latex hives Allergy Active Results Component Value Reference Range Notes BNP Reviewed date:07/21/2024 02:18:45 PM Interpretation: Performing Lab: Notes/Report: [facility] , NT Pro B Type Natriuretic Pept >62523.0 <=1800.0 pg/mL RESULTS CALLED TO [facility] Performing Lab: see note ML - [facility] LB CBC AUTO DIFF Reviewed date:07/21/2024 02:18:45 PM Interpretation: Performing Lab: Notes/Report: [facility] , White Blood Count 4.9 4.0-11.0 10 3/uL Red Blood Count 4.58 4.70-6.10 10 6/uL Hemoglobin 12.8 14.0-18.0 g/dL Hematocrit 41.6 42.0-54.0 % Mean Corpuscular Volume 90.8 80.0-94.0 fL Mean Corpuscular Hemoglobin 27.9 25.9-34.0 pg Mean Corpuscular HGB Conc 30.8 29.9-35.2 g/dL Red Cell Distribution Width 16.9 11.0-15.0 % Platelet Count 159 150-450 10 3/uL Mean Platelet Volume 10.2 9.5-13.5 fL Neutrophils Percent Auto 64.2 43.0-75.0 % Lymphocytes Percent Auto 20.2 20.5-60.0 % Monocytes Percent Auto 12.8 1.7-12.0 % Eosinophils Percent Auto 2.0 0.9-7.0 % Basophils Percent Auto 0.6 0.2-2.0 % Immature Granulocytes Pct Auto 0.2 0.0-0.5 % Neutrophils Absolute Auto 3.2 1.4-6.5 10 3/uL Lymphocytes Absolute Auto 1.0 1.2-3.8 10 3/uL Monocytes Absolute Auto 0.6 0.3-0.8 10 3/uL Eosinophils Absolute Auto 0.1 0.0-0.7 10 3/uL Basophils Absolute Auto 0.0 0.0-0.1 10 3/uL Immature Granulocytes Abs Auto 0.01 0.00-0.03 10 3/uL Performing Lab: see note ML - [facility] FREE T3 Reviewed date:07/21/2024 02:18:45 PM Interpretation: Performing Lab: Notes/Report: [facility] T3 2.82 2.18-3.98 pg/mL Performing Lab: see note ML - [facility] FREE T4 Reviewed date:07/21/2024 02:18:45 PM Interpretation: Performing Lab: Notes/Report: [facility] T4 0.87 0.76-1.46 ng/dL Performing Lab: see note ML - [facility] LB PROF 14(COMP METB) Reviewed date:07/21/2024 02:18:45 PM Interpretation: Performing Lab: Notes/Report: [facility] , Sodium 140 136-145 mmol/L Potassium 3.6 3.5-5.1 mmol/L Chloride 101 98-107 mmol/L Carbon Dioxide 27.9 21.0-32.0 mmol/L Anion Gap 14.7 Glucose 100 74-106 mg/dL Blood Urea Nitrogen 40.0 7.0-18.0 mg/dL Creatinine 2.64 0.70-1.30 mg/dL Estimated GFR ( Alexus 28 >=60 mL/min/1.73m 2 Estimated GFR (Non- Katlyn 23 >=60 mL/min/1.73m 2 BUN Creatinine Ratio 15.2 Calcium 9.5 8.5-10.1 mg/dL Bilirubin Total 1.1 0.2-1.0 mg/dL Aspartate Amino Transferase 21 15-37 U/L Alanine Aminotransferase 14 16-63 U/L Alkaline Phosphatase 91 46-116 U/L Total Protein 6.7 6.4-8.2 g/dL Albumin Level 3.1 3.4-5.0 g/dL Globulin 3.6 Albumin Globulin Ratio 0.9 Performing Lab: see note ML - [facility] LB FOLATE Reviewed date:07/30/2024 09:24:23 PM Interpretation: Performing Lab: Notes/Report: [facility] , Folate 12.20 8.60-58.90 ng/mL Performing Lab: see note ML - [facility] LB FREE T4 Reviewed date:07/30/2024 09:24:23 PM Interpretation: Performing Lab: Notes/Report: [facility] , Free T4 0.86 0.76-1.46 ng/dL Performing Lab: see note ML - [facility] LB TSH Reviewed date:07/30/2024 09:24:23 PM Interpretation: Performing Lab: Notes/Report: [facility] , Thyroid Stimulating Hormone 2.887 0.358-3.740 uIU/mL Performing Lab: see note ML - [facility] LB Troponin I High Sensitivity Reviewed date:07/30/2024 09:24:23 PM Interpretation: Performing Lab: Notes/Report: [facility] , Troponin I High Sensitivity 548.2 4.0-76.1 pg/mL RESULTS CALLED TO KEVIN CROCKER DISC PAD GRINDER AT 1412 CUT-OFF POINTS HAVE BEEN ESTABLISHED BASED ON THE FOURTH UNIVERSAL DEFINITION OF MYOCARDIAL INFARCTION. THE UPPER REFERENCE LIMIT (URL) OF TROPONIN, DEFINED THE 99TH PERCENTILE OF cTnI DISTRIBUTION IN A REFERENCE POPULATION, HAS BEEN CONFIRMED THE DECISION THRESHOLD FOR UT DIAGNOSIS. 99TH PERCENTILE = 76.2 PG/ML NOTE: HIGH-SENSITIVITY TROPONIN ASSAY IS NOT INTENDED TO BE USED IN ISOLATION BUT SHOULD BE INTERPRETED IN CONJUNCTION WITH OTHER DIAGNOSTIC AND CLINICAL INFORMATION. Performing Lab: see note ML - [facility] CBC AUTO DIFF Reviewed date:09/14/2024 08:18:26 PM Interpretation: Performing Lab: Notes/Report: [facility] , White Blood Count 5.2 4.0-11.0 10 3/uL Red Blood Count 3.61 4.70-6.10 10 6/uL Hemoglobin 9.6 14.0-18.0 g/dL Hematocrit 32.3 42.0-54.0 % Mean Corpuscular Volume 89.5 80.0-94.0 fL Mean Corpuscular Hemoglobin 26.6 25.9-34.0 pg Mean Corpuscular HGB Conc 29.7 29.9-35.2 g/dL Red Cell Distribution Width 18.6 11.0-15.0 % Platelet Count 206 150-450 10 3/uL Mean Platelet Volume 9.5 9.5-13.5 fL Neutrophils Percent Auto 73.5 43.0-75.0 % Lymphocytes Percent Auto 12.5 20.5-60.0 % Monocytes Percent Auto 9.7 1.7-12.0 % Eosinophils Percent Auto 3.3 0.9-7.0 % Basophils Percent Auto 0.6 0.2-2.0 % Immature Granulocytes Pct Auto 0.4 0.0-0.5 % Neutrophils Absolute Auto 3.8 1.4-6.5 10 3/uL Lymphocytes Absolute Auto 0.7 1.2-3.8 10 3/uL Monocytes Absolute Auto 0.5 0.3-0.8 10 3/uL Eosinophils Absolute Auto 0.2 0.0-0.7 10 3/uL Basophils Absolute Auto 0.0 0.0-0.1 10 3/uL Immature Granulocytes Abs Auto 0.02 0.00-0.03 10 3/uL Performing Lab: see note ML - [facility] LB PROF 14(COMP METB) Reviewed date:09/14/2024 08:18:26 PM Interpretation: Performing Lab: Notes/Report: [facility] , Sodium 140 136-145 mmol/L Potassium 3.3 3.5-5.1 mmol/L Chloride 102 98-107 mmol/L Carbon Dioxide 31.4 21.0-32.0 mmol/L Anion Gap 9.9 Glucose 91 74-106 mg/dL Blood Urea Nitrogen 46.0 7.0-18.0 mg/dL Creatinine 2.41 0.70-1.30 mg/dL Estimated GFR ( Alexus 31 >=60 mL/min/1.73m 2 Estimated GFR (Non- Katlyn 26 >=60 mL/min/1.73m 2 BUN Creatinine Ratio 19.1 Calcium 8.5 8.5-10.1 mg/dL Bilirubin Total 1.1 0.2-1.0 mg/dL Aspartate Amino Transferase 23 15-37 U/L Alanine Aminotransferase 20 16-63 U/L Alkaline Phosphatase 89 46-116 U/L Total Protein 5.9 6.4-8.2 g/dL Albumin Level 2.5 3.4-5.0 g/dL Globulin 3.4 Albumin Globulin Ratio 0.7 Performing Lab: see note ML - [facility] LB CBC AUTO DIFF Reviewed date:09/16/2024 03:14:14 PM Interpretation: Performing Lab: Notes/Report: [facility] , White Blood Count 6.2 4.0-11.0 10 3/uL Red Blood Count 3.70 4.70-6.10 10 6/uL Hemoglobin 9.9 14.0-18.0 g/dL Hematocrit 32.9 42.0-54.0 % Mean Corpuscular Volume 88.9 80.0-94.0 fL Mean Corpuscular Hemoglobin 26.8 25.9-34.0 pg Mean Corpuscular HGB Conc 30.1 29.9-35.2 g/dL Red Cell Distribution Width 18.9 11.0-15.0 % Platelet Count 212 150-450 10 3/uL Mean Platelet Volume 9.6 9.5-13.5 fL Neutrophils Percent Auto 75.8 43.0-75.0 % Lymphocytes Percent Auto 11.9 20.5-60.0 % Monocytes Percent Auto 9.1 1.7-12.0 % Eosinophils Percent Auto 2.3 0.9-7.0 % Basophils Percent Auto 0.6 0.2-2.0 % Immature Granulocytes Pct Auto 0.3 0.0-0.5 % Neutrophils Absolute Auto 4.7 1.4-6.5 10 3/uL Lymphocytes Absolute Auto 0.7 1.2-3.8 10 3/uL Monocytes Absolute Auto 0.6 0.3-0.8 10 3/uL Eosinophils Absolute Auto 0.1 0.0-0.7 10 3/uL Basophils Absolute Auto 0.0 0.0-0.1 10 3/uL Immature Granulocytes Abs Auto 0.02 0.00-0.03 10 3/uL Performing Lab: see note - [facility] LB PROF 14(COMP METB) Reviewed date:09/16/2024 03:14:14 PM Interpretation: Performing Lab: Notes/Report: [facility] , Sodium 142 136-145 mmol/L Potassium 3.3 3.5-5.1 mmol/L Chloride 102 98-107 mmol/L Carbon Dioxide 32.0 21.0-32.0 mmol/L Anion Gap 11.3 Glucose 96 74-106 mg/dL Blood Urea Nitrogen 42.0 7.0-18.0 mg/dL Creatinine 2.31 0.70-1.30 mg/dL Estimated GFR ( Alexus 33 >=60 mL/min/1.73m 2 Estimated GFR (Non- Katlyn 27 >=60 mL/min/1.73m 2 BUN Creatinine Ratio 18.2 Calcium 8.5 8.5-10.1 mg/dL Bilirubin Total 1.2 0.2-1.0 mg/dL Aspartate Amino Transferase 22 15-37 U/L Alanine Aminotransferase 23 16-63 U/L Alkaline Phosphatase 98 46-116 U/L Total Protein 6.4 6.4-8.2 g/dL Albumin Level 2.7 3.4-5.0 g/dL Globulin 3.7 Albumin Globulin Ratio 0.7 Performing Lab: see note - [facility] LB BNP Reviewed date:09/16/2024 03:14:14 PM Interpretation: Performing Lab: Notes/Report: [facility] , NT Pro B Type Natriuretic Pept >82028.0 <=1800.0 pg/mL RESULTS CALLED TO []@BY Emmy Virgen MLT at 0849 Performing Lab: see note - [facility] LB CBC AUTO DIFF Reviewed date:09/16/2024 03:14:14 PM Interpretation: Performing Lab: Notes/Report: [facility] , White Blood Count 6.4 4.0-11.0 10 3/uL Red Blood Count 3.57 4.70-6.10 10 6/uL Hemoglobin 9.7 14.0-18.0 g/dL Hematocrit 31.4 42.0-54.0 % Mean Corpuscular Volume 88.0 80.0-94.0 fL Mean Corpuscular Hemoglobin 27.2 25.9-34.0 pg Mean Corpuscular HGB Conc 30.9 29.9-35.2 g/dL Red Cell Distribution Width 19.3 11.0-15.0 % Platelet Count 208 150-450 10 3/uL Mean Platelet Volume 9.7 9.5-13.5 fL Neutrophils Percent Auto 65.2 43.0-75.0 % Lymphocytes Percent Auto 22.1 20.5-60.0 % Monocytes Percent Auto 9.9 1.7-12.0 % Eosinophils Percent Auto 2.0 0.9-7.0 % Basophils Percent Auto 0.3 0.2-2.0 % Immature Granulocytes Pct Auto 0.5 0.0-0.5 % Neutrophils Absolute Auto 4.2 1.4-6.5 10 3/uL Lymphocytes Absolute Auto 1.4 1.2-3.8 10 3/uL Monocytes Absolute Auto 0.6 0.3-0.8 10 3/uL Eosinophils Absolute Auto 0.1 0.0-0.7 10 3/uL Basophils Absolute Auto 0.0 0.0-0.1 10 3/uL Immature Granulocytes Abs Auto 0.03 0.00-0.03 10 3/uL Performing Lab: see note ML - [facility] LB PROF 14(COMP METB) Reviewed date:09/16/2024 03:14:14 PM Interpretation: Performing Lab: Notes/Report: [facility] , Sodium 140 136-145 mmol/L Potassium 2.9 3.5-5.1 mmol/L RESULTS MCGOWAN D TO YARON KOVACS RN Chloride 101 98-107 mmol/L Carbon Dioxide 28.8 21.0-32.0 mmol/L Anion Gap 13.1 Glucose 106 74-106 mg/dL Blood Urea Nitrogen 41.0 7.0-18.0 mg/dL Creatinine 2.19 0.70-1.30 mg/dL Estimated GFR ( Alexus 35 >=60 mL/min/1.73m 2 Estimated GFR (Non- Katlyn 29 >=60 mL/min/1.73m 2 BUN Creatinine Ratio 18.7 Calcium 8.4 8.5-10.1 mg/dL Bilirubin Total 1.3 0.2-1.0 mg/dL Aspartate Amino Transferase 20 15-37 U/L Alanine Aminotransferase 21 16-63 U/L Alkaline Phosphatase 93 46-116 U/L Total Protein 6.4 6.4-8.2 g/dL Albumin Level 2.7 3.4-5.0 g/dL Globulin 3.7 Albumin Globulin Ratio 0.7 Performing Lab: see note ML - [facility] Troponin I High Sensitivity Reviewed date:09/16/2024 03:14:14 PM Interpretation: Performing Lab: Notes/Report: [facility] , Troponin I High Sensitivity 594.5 4.0-76.1 pg/mL RESULTS CALLED TO BEBE KOVACS RN CUT-OFF POINTS HAVE BEEN ESTABLISHED BASED ON THE FOURTH UNIVERSAL DEFINITION OF MYOCARDIAL INFARCTION. THE UPPER REFERENCE LIMIT (URL) OF TROPONIN, DEFINED THE 99TH PERCENTILE OF cTnI DISTRIBUTION IN A REFERENCE POPULATION, HAS BEEN CONFIRMED THE DECISION THRESHOLD FOR [place] DIAGNOSIS. 99TH PERCENTILE = 76.2 PG/ML NOTE: HIGH-SENSITIVITY TROPONIN ASSAY IS NOT INTENDED TO BE USED IN ISOLATION BUT SHOULD BE INTERPRETED IN CONJUNCTION WITH OTHER DIAGNOSTIC AND CLINICAL INFORMATION. Performing Lab: see note ML - [facility] FREE T4 Reviewed date:11/22/2024 09:47:32 AM Interpretation: Performing Lab: Notes/Report: [facility] , Free T4 1.32 0.76-1.46 ng/dL Performing Lab: see note ML - [facility] PROF 14(COMP METB) Reviewed date:11/22/2024 09:47:32 AM Interpretation: Performing Lab: Notes/Report: [facility] , Sodium 137 136-145 mmol/L Potassium 4.1 3.5-5.1 mmol/L Chloride 101 98-107 mmol/L Carbon Dioxide 30.8 21.0-32.0 mmol/L Anion Gap 9.3 Glucose 90 74-106 mg/dL Blood Urea Nitrogen 33.0 7.0-18.0 mg/dL Creatinine 2.30 0.70-1.30 mg/dL Estimated GFR ( Alexus 33 >=60 mL/min/1.73m 2 Estimated GFR (Non- Katlyn 27 >=60 mL/min/1.73m 2 BUN Creatinine Ratio 14.3 Calcium 9.2 8.5-10.1 mg/dL Bilirubin Total 1.0 0.2-1.0 mg/dL Aspartate Amino Transferase 21 15-37 U/L Alanine Aminotransferase 10 16-63 U/L Alkaline Phosphatase 124 46-116 U/L Total Protein 7.1 6.4-8.2 g/dL Albumin Level 3.2 3.4-5.0 g/dL Globulin 3.9 Albumin Globulin Ratio 0.8 Performing Lab: see note ML - [facility] LB Troponin I High Sensitivity Reviewed date:11/22/2024 09:47:32 AM Interpretation: Performing Lab: Notes/Report: [facility] , Troponin I High Sensitivity 1139.8 4.0-76.1 pg/mL RESULTS CALLED TO YAHIR PARSONS RN CUT-OFF POINTS HAVE BEEN ESTABLISHED BASED ON THE FOURTH UNIVERSAL DEFINITION OF MYOCARDIAL INFARCTION. THE UPPER REFERENCE LIMIT (URL) OF TROPONIN, DEFINED THE 99TH PERCENTILE OF cTnI DISTRIBUTION IN A REFERENCE POPULATION, HAS BEEN CONFIRMED THE DECISION THRESHOLD FOR UT DIAGNOSIS. 99TH PERCENTILE = 76.2 PG/ML NOTE: HIGH-SENSITIVITY TROPONIN ASSAY IS NOT INTENDED TO BE USED IN ISOLATION BUT SHOULD BE INTERPRETED IN CONJUNCTION WITH OTHER DIAGNOSTIC AND CLINICAL INFORMATION. Performing Lab: see note ML - [facility] LB TSH W/ REFLEX FT4 Reviewed date:11/22/2024 09:47:32 AM Interpretation: Performing Lab: Notes/Report: [facility] , TSH W/ REFLEX FT4 5.982 0.358-3.740 uIU/mL Performing Lab: see note ML - [facility] LB ECG 12 lead Reviewed date:11/22/2024 09:47:32 AM Interpretation: Performing Lab: Notes/Report: Source Facility: [facility]-[address] [place] [address] [place] [address] Electrocardiograph Report Signed Patient: JOSÉ MIGUEL ANTONIO MR#: [id number] : 1940 Acct:[id number] Age/Sex: 84 / M ADM Date: 11/21/24 Loc: ER Attending Dr: Ordering Physician: Justice Chavira M.D. Date of Service: 11/21/24 Procedure(s): ECG 12 lead Accession Number(s): [id number] cc: [facility] Test Date: 2024-11-21 Pat Name: JOSÉ MIGUEL ANTONIO Department: Room: - Gender: Male Chief Specialist Leed: : 1940 Requested By: [id number] Order Number: [id number] Reading MD: MLAAIKA FAUST M.D. Measurements Intervals [place] Rate: 77 P: 90 WI: 142 QRS: 14 QRSD: 116 T: 150 QT: 392 QTc: 423 Interpretive Statements 1100 Sinus rhythm 1570 with occasional ventricular premature complexes 2540 Incomplete left bundle branch block [address] depression 7500 Abnormal QRS-T angle 8003 Consistent with pulmonary disease 8101 Low QRS voltage in limb leads 9150 abnormal ECG Compared to ECG 09/12/2024 17:55:25 Ventricular premature complex(es) now present First degree AV block no longer present ST (T wave) deviation still present Electronically Signed On 11-21-2024 10:48:25 EST by MALAIKA FAUST M.D. Dictated By: MALAIKA FAUST Signed By: 11/21/24 1048 DD/ 0859 TD/TT: Yield Loss Inspector: [place] [address] Electrocardiograph Report Signed Patient: MAIA ANTONIO MR#: [id number] : 1940 Acct:[id number] Age/Sex: 84 / M ADM Date: 11/21/24 Loc: ER Attending Dr: Ordering Physician: Justice Chavira M.D. Date of Service: 11/21/24 Procedure(s): ECG 12 lead Accession Number(s): [id number] cc: [facility] Test Date: 2024-11-21 Pat Name: JOSÉ MIGUEL GRANADO Department: 43 Room: - Gender: Male Chief Specialist Leed: : 1940 Requested By: [id number] Order Number: [id number] Reading MD: MALAIKA FAUST M.D. Measurements Intervals [place] Rate: 77 P: 90 WI: 142 QRS: 14 QRSD: 116 T: 150 QT: 392 QTc: 423 Interpretive Statements 1100 Sinus rhythm 1570 with occasional ventricular premature complexes 2540 Incomplete left bundle branch block [address] depression 7500 Abnormal QRS-T angle 8003 Consistent with pulmonary disease 8101 Low QRS voltage in limb leads 9150 abnormal ECG Compared to ECG 09/12/2024 17:55:25 Ventricular prematur e complex(es) now present First degree AV bloc k no longer present ST (T wave) deviatio n still present Electronically Elayne d On 11-21-2024 10:48:25 EST by MALAIKA FAUST M.D. Dictated By: MALAIKA FAUST Signed By: 11/21/24 1048 DD/ 0859 TD/TT: Yield Loss Inspector: CBC AND AUTO DIFF * Reviewed date:02/01/2025 07:03:02 PM Interpretation: Performing Lab: Notes/Report: WBC 4.7 4-11 x10E9/L RBC COUNT 3.84 4.1-5.7 X10E12/L HEMOGLOBIN 12.1 13-17 g/dL HEMATOCRIT 35.9 39-50 % MCV 94 80-100 fL MCH 31.4 27-34 pg MCHC 33.6 32-36 g/dL RDW 17.6 11.5-15 % PLATELET COUNT 156 150-450 X10E9/L MPV 8.3 7-12 fL NEUTROPHILS RELATIVE PERCENT BY AUTOMATED COUNT 70.6 LYMPHOCYTES RELATIVE PERCENT BY AUTOMATED COUNT 12.2 MONOCYTES RELATIVE PERCENT BY AUTOMATED COUNT 12.5 EOSINOPHILS RELATIVE PERCENT BY AUTOMATED COUNT 3.5 BASOPHILS RELATIVE PERCENT BY AUTOMATED COUNT 1.2 NEUTROPHILS ABSOLUTE COUNT BY AUTOMATED COUNT 3.3 1.5-6.6 10*3/uL LYMPHOCYTES ABSOLUTE COUNT (10*3/UL) BY AUTOMATED COUNT 0.6 1.0-3.5 10*3/uL MONOCYTES ABSOLUTE COUNT (10*3/UL) BY AUTOMATED COUNT 0.6 0.0-0.9 10*3/uL EOSINOPHILS ABSOLUTE COUNT (10*3/UL) BY AUTOMATED COUNT 0.2 0.0-0.4 10*3/uL BASOPHILS ABSOLUTE COUNT (10*3/UL) BY AUTOMATED COUNT 0.1 0.0-0.2 10*3/uL CELLAVISION DIFFERENTIAL TYPE AUTOMATED DIFFERENTIAL PERFORMED AT [address] [place] [address] CBC AND AUTO DIFF * Reviewed date:02/10/2025 01:01:30 PM Interpretation: Performing Lab: Notes/Report: WBC 4.2 4-11 x10E9/L RBC COUNT 3.74 4.1-5.7 X10E12/L HEMOGLOBIN 11.7 13-17 g/dL HEMATOCRIT 35.2 39-50 % MCV 94 80-100 fL MCH 31.3 27-34 pg MCHC 33.3 32-36 g/dL RDW 17.6 11.5-15 % PLATELET COUNT 161 150-450 X10E9/L MPV 8.1 7-12 fL NEUTROPHILS RELATIVE PERCENT BY AUTOMATED COUNT 62.7 LYMPHOCYTES RELATIVE PERCENT BY AUTOMATED COUNT 16.4 MONOCYTES RELATIVE PERCENT BY AUTOMATED COUNT 14.1 EOSINOPHILS RELATIVE PERCENT BY AUTOMATED COUNT 6.3 BASOPHILS RELATIVE PERCENT BY AUTOMATED COUNT 0.5 NEUTROPHILS ABSOLUTE COUNT BY AUTOMATED COUNT 2.6 1.5-6.6 10*3/uL LYMPHOCYTES ABSOLUTE COUNT (10*3/UL) BY AUTOMATED COUNT 0.7 1.0-3.5 10*3/uL MONOCYTES ABSOLUTE COUNT (10*3/UL) BY AUTOMATED COUNT 0.6 0.0-0.9 10*3/uL EOSINOPHILS ABSOLUTE COUNT (10*3/UL) BY AUTOMATED COUNT 0.3 0.0-0.4 10*3/uL BASOPHILS ABSOLUTE COUNT (10*3/UL) BY AUTOMATED COUNT 0.0 0.0-0.2 10*3/uL CELLAVISION DIFFERENTIAL TYPE AUTOMATED DIFFERENTIAL PERFORMED AT [address] [place] [address] COMPREHENSIVE METABOLIC PANE L Reviewed date:02/14/2025 04:12:33 PM Interpretation: Performing Lab: Notes/Report: SODIUM 133 134-146 mmol/L POTASSIUM 3.8 3.5-5.0 mmol/L CHLORIDE 102 98-109 mmol/L CARBON DIOXIDE 27 22-32 mmol/L ANION GAP 4 5-15 mmol/L BLOOD UREA NITROGEN 49 5-27 mg/dL CREATININE 2.18 0.70-1.20 mg/dL METHOD TRACE ABLE TO IDMS STANDARD GLUCOSE 88 65-99 mg/dL CALCIUM 8.6 8.5-10.5 mg/dL TOTAL PROTEIN 6.8 6.0-8.0 g/dL ALBUMIN 3.3 3.2-5.3 g/dL ALKALINE PHOSPHATASE 117 39-130 U/L AST 20 <=41 U/L ALT 11 <=40 U/L BILIRUBIN,TOTAL 1.1 0.3-1.2 mg/dL EGFR (CKD-EPI) NON-RACE DEPENDENT 29 >=60 ml/min/1.73sq.m eGFR not reported due to non-numeric value for Creatinine. Reported eGFR is based on the CKD-EPI 2020 equation that does not use a race coefficient. PERFORMED AT [address] [place] [address] CBC AND AUTO DIFF * Reviewed date:02/22/2025 08:31:44 PM Interpretation: Performing Lab: Notes/Report: WBC 3.8 4-11 x10E9/L RBC COUNT 3.63 4.1-5.7 X10E12/L HEMOGLOBIN 11.3 13-17 g/dL HEMATOCRIT 34.6 39-50 % MCV 95 80-100 fL MCH 31.2 27-34 pg MCHC 32.7 32-36 g/dL RDW 17.7 11.5-15 % PLATELET COUNT 139 150-450 X10E9/L MPV 8.4 7-12 fL NEUTROPHILS RELATIVE PERCENT BY AUTOMATED COUNT 69.7 LYMPHOCYTES RELATIVE PERCENT BY AUTOMATED COUNT 10.4 MONOCYTES RELATIVE PERCENT BY AUTOMATED COUNT 11.7 EOSINOPHILS RELATIVE PERCENT BY AUTOMATED COUNT 7.5 BASOPHILS RELATIVE PERCENT BY AUTOMATED COUNT 0.7 NEUTROPHILS ABSOLUTE COUNT BY AUTOMATED COUNT 2.6 1.5-6.6 10*3/uL LYMPHOCYTES ABSOLUTE COUNT (10*3/UL) BY AUTOMATED COUNT 0.4 1.0-3.5 10*3/uL MONOCYTES ABSOLUTE COUNT (10*3/UL) BY AUTOMATED COUNT 0.4 0.0-0.9 10*3/uL EOSINOPHILS ABSOLUTE COUNT (10*3/UL) BY AUTOMATED COUNT 0.3 0.0-0.4 10*3/uL BASOPHILS ABSOLUTE COUNT (10*3/UL) BY AUTOMATED COUNT 0.0 0.0-0.2 10*3/uL CELLAVISION DIFFERENTIAL TYPE AUTOMATED DIFFERENTIAL PERFORMED AT [address] [place] [address] BLOOD CULTURE ID PANEL Reviewed date:03/07/2025 12:12:05 PM Interpretation: Performing Lab: Notes/Report: [facility] , CTX-M NOT APPLICABLE NOT DETECTE IMP NOT APPLICABLE NOT DETECTE KPC NOT APPLICABLE NOT DETECTE mcr-1 NOT APPLICABLE NOT DETECTE mecA/C NOT APPLICABLE NOT DETECTE mecA/C and MREJ (MRSA) NOT APPLICABLE NOT DETECTE NDM NOT APPLICABLE NOT DETECTE OXA-48-like NOT APPLICABLE NOT DETECTE Jamison/B NOT APPLICABLE NOT DETECTE VIM NOT APPLICABLE NOT DETECTE Source BLOOD Enterococcus faecalis NOT DETECTED NOT DETECTE Enterococcus faecium NOT DETECTED NOT DETECTE Listeria monocytogenes NOT DETECTED NOT DETECTE Staphylococcus spp. NOT DETECTED NOT DETECTE Staphylococcus aureus NOT DETECTED NOT DETECTE Staphylococcus epidermidis NOT DETECTED NOT DETECTE Staphylococcus lugdunensis NOT DETECTED NOT DETECTE Streptococcus spp. NOT DETECTED NOT DETECTE Streptococcus agalactiae NOT DETECTED NOT DETECTE Streptococcus pneumoniae NOT DETECTED NOT DETECTE Streptococcus pyogenes NOT DETECTED NOT DETECTE A. calcoaceticus-baumannii Cpx NOT DETECTED NOT DETECTE Bacteroides fragilis NOT DETECTED NOT DETECTE Enterobacterales NOT DETECTED NOT DETECTE Enterobacter cloacae complex NOT DETECTED NOT DETECTE Escherichia coli NOT DETECTED NOT DETECTE Klebsiella aerogenes NOT DETECTED NOT DETECTE Klebsiella oxytoca NOT DETECTED NOT DETECTE Klebsiella pneumoniae group NOT DETECTED NOT DETECTE Proteus spp. NOT DETECTED NOT DETECTE Salmonella spp. NOT DETECTED NOT DETECTE Serratia marcescens NOT DETECTED NOT DETECTE Haemophilus influenzae NOT DETECTED NOT DETECTE Neisseria meningitidis NOT DETECTED NOT DETECTE Pseudomonas aeruginosa NOT DETECTED NOT DETECTE Stenotrophomonas maltophilia DETECTED NOT DETECTE RESULTS CALLED TO ALLEY WALKER RN at 2138 Lindsay albicans NOT DETECTED NOT DETECTE Lindsay auris NOT DETECTED NOT DETECTE Lindsay glabrata NOT DETECTED NOT DETECTE Lindsay krusei NOT DETECTED NOT DETECTE Lindsay parapsilosis NOT DETECTED NOT DETECTE Lindsay tropicalis NOT DETECTED NOT DETECTE Cryptococcus neoformans/gattii NOT DETECTED NOT DETECTE Performing Lab: see note - [facility] LB BNP Reviewed date:03/04/2025 06:45:48 PM Interpretation: Performing Lab: Notes/Report: [facility] , NT Pro B Type Natriuretic Pept >30558.0 <=1800.0 pg/mL RESULTS CALLED TO LORNA HARTLEY RN Performing Lab: see note - [facility] LB PROF 14(COMP METB) Reviewed date:03/04/2025 06:45:48 PM Interpretation: Performing Lab: Notes/Report: [facility] , Sodium 135 136-145 mmol/L Potassium 5.3 3.5-5.1 mmol/L Chloride 99 98-107 mmol/L Carbon Dioxide 25.6 21.0-32.0 mmol/L Anion Gap 15.7 Glucose 90 74-106 mg/dL Blood Urea Nitrogen 71.0 7.0-18.0 mg/dL Creatinine 3.26 0.70-1.30 mg/dL Estimated GFR ( Alexus 22 >=60 mL/min/1.73m 2 Estimated GFR (Non- Katlyn 18 >=60 mL/min/1.73m 2 BUN Creatinine Ratio 21.8 Calcium 9.4 8.5-10.1 mg/dL Bilirubin Total 2.2 0.2-1.0 mg/dL Aspartate Amino Transferase 20 15-37 U/L Alanine Aminotransferase 16 16-63 U/L Alkaline Phosphatase 114 46-116 U/L Total Protein 7.3 6.4-8.2 g/dL Albumin Level 3.1 3.4-5.0 g/dL Globulin 4.2 Albumin Globulin Ratio 0.7 Performing Lab: see note [facility] UA RANDOM W or MICROSCOPIC Reviewed date:03/05/2025 01:04:44 PM Interpretation: Performing Lab: Notes/Report: [facility] , Color Urine LT. YELLOW YELLOW Clarity Urine CLEAR CLEAR Specific [place] Urine 1.010 1.005-1.025 pH Urine 6.0 5.0-9.0 Protein Urine NEGATIVE NEG/TRACE mg/dL Glucose Urine UA NEGATIVE NEGATIVE mg/dL Bilirubin Urine NEGATIVE NEGATIVE Ketones Urine NEGATIVE NEGATIVE mg/dL Blood Urine NEGATIVE NEGATIVE Nitrite Urine NEGATIVE NEGATIVE Urobilinogen Urine 0.2 0.2-1.0 EU/dL Leukocyte Esterase Urine NEGATIVE NEGATIVE WBC Urine 0-2 NONE SEEN #/HPF RBC Urine 0-2 0-2 #/HPF Bacteria Urine NONE SEEN NONE SEEN #/HPF Mucus Urine NONE SEEN NONE SEEN Squamous Epithelial Cell Urine NONE SEEN NONE/RARE #/LPF Crystals Seen? None Seen None Seen #/HPF Cast Seen? SEEN NONE SEEN #/LPF Hyaline Casts Urine FEW Urine Culture Indicated NO Performing Lab: see note [facility] LB Blood Culture 1 Reviewed date:03/10/2025 05:43:29 PM Interpretation: Performing Lab: Notes/Report: LEFT HAND - PEDS [facility] , Blood Culture 1 See Below For Report Blood Culture 1 NG5D NO GROWTH AT 5 DAYS.^NO GROWTH AT 5 DAYS. Performing Lab: see note [facility] LB Blood Culture 2 Reviewed date:03/07/2025 12:12:05 PM Interpretation: Performing Lab: Notes/Report: RIGHT AC - AEROBIC ONLY [facility] , Blood Culture 2 See Below For Report Blood Culture 2 NG3D NO GROWTH AT 36-48 HOURS. FINAL TO FOLLOW.^NO GROWTH AT 36-48 HOURS. FINAL TO FOLLOW. Performing Lab: see note ML - [facility] LB Manual Differential Reviewed date:03/04/2025 06:45:48 PM Interpretation: Performing Lab: Notes/Report: [facility] , Segmented Neutrophils % Manual 90.0 43.0-75.0 Lymphocytes Percent Manual 6.0 20.5-60.0 % Monocytes Percent Manual 4.0 1.7-12.0 % Eosinophils Percent Manual 0.0 0.9-7.0 % Basophils Percent Manual 0.0 0.2-2.0 % Segmented Neut Absolute Manual 8.82 1.4-6.5 10 3/uL Lymphocytes Absolute Manual 0.58 1.20-3.80 10 3/uL Monocytes Absolute Manual 0.39 0.30-0.80 10 3/uL Eosinophils Absolute Manual 0.00 0.00-0.70 10 3/uL Basophils Abs Manual 0.00 0.00-0.10 1 0 3/uL Performing Lab: see note ML - [facility] LB Troponin I High Sensitivity Reviewed date:03/04/2025 06:45:48 PM Interpretation: Performing Lab: Notes/Report: [facility] , Troponin I High Sensitivity 851.9 4.0-76.1 pg/mL RESULTS CALLED TO LORNA HARTLEY RN CUT-OFF POINTS HAVE BEEN ESTABLISHED BASED ON THE FOURTH UNIVERSAL DEFINITION OF MYOCARDIAL INFARCTION. THE UPPER REFERENCE LIMIT (URL) OF TROPONIN, DEFINED THE 99TH PERCENTILE OF cTnI DISTRIBUTION IN A REFERENCE POPULATION, HAS BEEN CONFIRMED THE DECISION THRESHOLD FOR UT DIAGNOSIS. 99TH PERCENTILE = 76.2 PG/ML NOTE: HIGH-SENSITIVITY TROPONIN ASSAY IS NOT INTENDED TO BE USED IN ISOLATION BUT SHOULD BE INTERPRETED IN CONJUNCTION WITH OTHER DIAGNOSTIC AND CLINICAL INFORMATION. Performing Lab: see note ML - [facility] LB Aerobe ID + Suscept Reviewed date:03/10/2025 05:43:29 PM Interpretation: Performing Lab: Notes/Report: [facility] , Aerobe ID + Suscept See Below For Report Aerobe ID + Suscept O:STEMAL Isolated Organism: 1.1 Antibiotic Interpretation KY[facility] Status Aerobe ID + Suscept Specimen has been received and testing has been initiated. Aerobe ID + Suscept O:STEMAL Isolated Organism: 1.1 Antibiotic Interpretation [facility] Status Aerobe ID + Suscept Recovered from aerob ic bottle only. Aerobe ID + Suscept O:STEMAL Isolated Organism: 1.1 Antibiotic Interpretation [facility] Status Aerobe ID + Suscept Organism: Stenotrophomonas maltophilia : Aerobe ID + Suscept O:STEMAL Isolated Organism: 1.1 Antibiotic Interpretation [facility] Status Aerobe ID + Suscept *ABNORMAL* Aerobe ID + Suscept O:STEMAL Isolated Organism: 1.1 Antibiotic Interpretation [facility] Status Aerobe ID + Suscept Received aerobic bot tle only. Aerobe ID + Suscept O:STEMAL Isolated Organism: 1.1 Antibiotic Interpretation [facility] Status Aerobe ID + Suscept Stenotrophomonas maltophilia Aerobe ID + Suscept O:STEMAL Isolated Organism: 1.1 Antibiotic Interpretation [facility] Status Aerobe ID + Suscept See Below For Report Aerobe ID + Suscept O:STEMAL Isolated Organism: 1.1 Antibiotic Interpretation KY[facility] Status Aerobe ID + Suscept Performed at: [facility] Aerobe ID + Suscept O:STEMAL Isolated Organism: 1.1 Antibiotic Interpretation [facility] Status Aerobe ID + Suscept [id number], [place] [id number] Aerobe ID + Suscept O:STEMAL Isolated Organism: 1.1 Antibiotic Interpretation [facility] Status Aerobe ID + Suscept Reference Archivist: Beatriz Simms PhD, Phone: [phone] Aerobe ID + Suscept O:STEMAL Isolated Organism: 1.1 Antibiotic Interpretation [facility] Status Aerobe ID + Suscept See Below For Report Aerobe ID + Suscept O:STEMAL Isolated Organism: 1.1 Antibiotic Interpretation [facility] Status Aerobe ID + Suscept Levofloxacin S F Aerobe ID + Suscept O:STEMAL Isolated Organism: 1.1 Antibiotic Interpretation [facility] Status Aerobe ID + Suscept Trimethoprim/Sulfame thox azole S F Aerobe ID + Suscept O:STEMAL Isolated Organism: 1.1 Antibiotic Interpretation KYAW Status Performing Lab: see note [facility] LB SEE REPORT - [employer] Hostess Id information not found for OBX-specific brand engineer legend ECG 12 lead Reviewed date:03/04/2025 06:45:48 PM Interpretation: Performing Lab: Notes/Report: Source Facility: [place] [address] [place] [address] Electrocardiograph Report Signed Patient: JOSÉ MIGUEL ANTONIO MR#: [id number] : 1940 Acct:[id number] Age/Sex: 85 / M ADM Date: 03/04/25 Loc: ER Attending Dr: Ordering Physician: Lily Crowe Date of Service: 03/04/25 Procedure(s): ECG 12 lead Accession Number(s): [id number] cc: [facility] Test Date: 2025-03-04 Pat Name: JOSÉ MIGUEL ANTONIO Department: Room: - Gender: Male Chief Specialist Leed: : 1940 Requested By: [id number] Order Number: [id number] Reading MD: MALAIKA FAUST M.D. Measurements Intervals [place] Rate: 69 P: 30 WI: 146 QRS: 73 QRSD: 116 T: -58 QT: 420 QTc: 439 Interpretive Statements 1100 Sinus rhythm 3113 Cannot rule out anterior myocardial infarction, probably old [address] depression 8101 Low QRS voltage in limb leads 9150 abnormal ECG Compared to ECG 11/21/2024 08:59:32 Ventricular premature complex(es) no longer present Electronically Signed On 03-04-2025 17:56:40 EDT by MALAIKA FAUST M.D. Dictated By: MALAIKA FAUST Signed By: 03/04/25 1757 DD/ 1524 TD/TT: Yield Loss Inspector: [place] [address] Electrocardiograph Report Signed Patient: MAIA ANTONIO MR#: [id number] : 1940 Acct:[id number] Age/Sex: 85 / M ADM Date: 03/04/25 Loc: ER Attending Dr: Ordering Physician: Lily Crowe Date of Service: 03/04/25 Procedure(s): ECG 12 lead Accession Number(s): [id number] cc: [facility] Test Date: 2025-03-04 Pat Name: JOSÉ MIGUEL ROMULO GRANADO Department: 43 Room: - Gender: Male Chief Specialist Leed: : 1940 Requested By: [id number] Order Number: [id number] Reading MD: MALAIKA FAUST M.D. Measurements Intervals [place] Rate: 69 P: 30 WI: 146 QRS: 73 QRSD: 116 T: -58 QT: 420 QTc: 439 Interpretive Statements 1100 Sinus rhythm 3113 Cannot rule out anterior myocardial infarction, probably old [address] depression 8101 Low QRS voltage in limb leads 9150 abnormal ECG Compared to ECG 11/21/2024 08:59:32 Ventricular prematur e complex(es) no longer present Electronically Elayne d On 03-04-2025 17:56:40 EDT by MALAIKA FAUST M.D. Dictated By: MALAIKA FAUTS Signed By: 03/04/25 6840 DD/ 1524 TD/TT: Yield Loss Inspector: Troponin I High Sensitivity Reviewed date:03/04/2025 06:45:48 PM Interpretation: Performing Lab: Notes/Report: [facility] , Troponin I High Sensitivity 818.4 4.0-76.1 pg/mL RESULTS CALLED TO LORNA HARTLEY RN CUT-OFF POINTS HAVE BEEN ESTABLISHED BASED ON THE FOURTH UNIVERSAL DEFINITION OF MYOCARDIAL INFARCTION. THE UPPER REFERENCE LIMIT (URL) OF TROPONIN, DEFINED THE 99TH PERCENTILE OF cTnI DISTRIBUTION IN A REFERENCE POPULATION, HAS BEEN CONFIRMED THE DECISION THRESHOLD FOR UT DIAGNOSIS. 99TH PERCENTILE = 76.2 PG/ML NOTE: HIGH-SENSITIVITY TROPONIN ASSAY IS NOT INTENDED TO BE USED IN ISOLATION BUT SHOULD BE INTERPRETED IN CONJUNCTION WITH OTHER DIAGNOSTIC AND CLINICAL INFORMATION. Performing Lab: see note ML - [facility] LB Troponin I High Sensitivity Reviewed date:03/05/2025 01:04:44 PM Interpretation: Performing Lab: Notes/Report: [facility] , Troponin I High Sensitivity 840.6 4.0-76.1 pg/mL RESULTS CALLED TO David Beatty RN @BY Amadou Brantley MLT at 1950 CUT-OFF POINTS HAVE BEEN ESTABLISHED BASED ON THE FOURTH UNIVERSAL DEFINITION OF MYOCARDIAL INFARCTION. THE UPPER REFERENCE LIMIT (URL) OF TROPONIN, DEFINED THE 99TH PERCENTILE OF cTnI DISTRIBUTION IN A REFERENCE POPULATION, HAS BEEN CONFIRMED THE DECISION THRESHOLD FOR UT DIAGNOSIS. 99TH PERCENTILE = 76.2 PG/ML NOTE: HIGH-SENSITIVITY TROPONIN ASSAY IS NOT INTENDED TO BE USED IN ISOLATION BUT SHOULD BE INTERPRETED IN CONJUNCTION WITH OTHER DIAGNOSTIC AND CLINICAL INFORMATION. Performing Lab: see note ML - [facility] LB Troponin I High Sensitivity Reviewed date:03/05/2025 01:04:44 PM Interpretation: Performing Lab: Notes/Report: [facility] , Troponin I High Sensitivity 781.3 4.0-76.1 pg/mL RESULTS CALLED TO David Ahmadi RN @BY Amadou Brantley [place] at 2206 CUT-OFF POINTS HAVE BEEN ESTABLISHED BASED ON THE FOURTH UNIVERSAL DEFINITION OF MYOCARDIAL INFARCTION. THE UPPER REFERENCE LIMIT (URL) OF TROPONIN, DEFINED THE 99TH PERCENTILE OF cTnI DISTRIBUTION IN A REFERENCE POPULATION, HAS BEEN CONFIRMED THE DECISION THRESHOLD FOR UT DIAGNOSIS. 99TH PERCENTILE = 76.2 PG/ML NOTE: HIGH-SENSITIVITY TROPONIN ASSAY IS NOT INTENDED TO BE USED IN ISOLATION BUT SHOULD BE INTERPRETED IN CONJUNCTION WITH OTHER DIAGNOSTIC AND CLINICAL INFORMATION. Performing Lab: see note ML - [facility] LB CBC AUTO DIFF Reviewed date:03/05/2025 01:04:44 PM Interpretation: Performing Lab: Notes/Report: [facility] , White Blood Count 10.1 4.0-11.0 10 3/uL Red Blood Count 4.40 4.70-6.10 10 6/uL Hemoglobin 13.7 14.0-18.0 g/dL Hematocrit 42.3 42.0-54.0 % Mean Corpuscular Volume 96.1 80.0-94.0 fL Mean Corpuscular Hemoglobin 31.1 25.9-34.0 pg Mean Corpuscular HGB Conc 32.4 29.9-35.2 g/dL Red Cell Distribution Width 17.4 11.0-15.0 % Platelet Count 157 150-450 10 3/uL Mean Platelet Volume 10.7 9.5-13.5 fL Neutrophils Percent Auto 87.1 43.0-75.0 % Lymphocytes Percent Auto 4.8 20.5-60.0 % Monocytes Percent Auto 7.2 1.7-12.0 % Eosinophils Percent Auto 0.1 0.9-7.0 % Basophils Percent Auto 0.1 0.2-2.0 % Immature Granulocytes Pct Auto 0.7 0.0-0.5 % Neutrophils Absolute Auto 8.8 1.4-6.5 10 3/uL Lymphocytes Absolute Auto 0.5 1.2-3.8 10 3/uL Monocytes Absolute Auto 0.7 0.3-0.8 10 3/uL Eosinophils Absolute Auto 0.0 0.0-0.7 10 3/uL Basophils Absolute Auto 0.0 0.0-0.1 10 3/uL Immature Granulocytes Abs Auto 0.07 0.00-0.03 10 3/uL Performing Lab: see note - [facility] LB PROF CHEM 8 (BAS METB) Reviewed date:03/06/2025 01:25:45 PM Interpretation: Performing Lab: Notes/Report: [facility] , Sodium 140 136-145 mmol/L Potassium 5.1 3.5-5.1 mmol/L Chloride 103 98-107 mmol/L Carbon Dioxide 26.3 21.0-32.0 mmol/L Anion Gap 15.8 Glucose 127 74-106 mg/dL Blood Urea Nitrogen 82.0 7.0-18.0 mg/dL RESULT S CALLED TO Angelito Rajput RN Creatinine 3.41 0.70-1.30 mg/dL Estimated GFR ( Alexus 21 >=60 mL/min/1.73m 2 Estimated GFR (Non- Katlyn 17 >=60 mL/min/1.73m 2 BUN Creatinine Ratio 24.0 Calcium 9.2 8.5-10.1 mg/dL Performing Lab: see note - [facility] LB Aerobic Culture Reviewed date:03/08/2025 06:29:35 PM Interpretation: Performing Lab: Notes/Report: [facility] , Aerobic Culture See Below For Report Aerobic Culture Organism: Gram negative tawnya : O:ENTCLC Isolated O:GNR Isolated Organism: 1.1 Antibiotic Interpretation [facility] Status Aerobic Culture *ABNORMAL* Aerobic Culture Organism: Gram negative tawnya : O:ENTCLC Isolated O:GNR Isolated Organism: 1.1 Antibiotic Interpretation [facility] Status Aerobic Culture Heavy growth Aerobic Culture Organism: Gram negative tawnya : O:ENTCLC Isolated O:GNR Isolated Organism: 1.1 Antibiotic Interpretation [facility] Status Aerobic Culture Aerobic Culture Organism: Gram negative tawnya : O:ENTCLC Isolated O:GNR Isolated Organism: 1.1 Antibiotic Interpretation [facility] Status Aerobic Culture Specimen has been received and testing has been initiated. Aerobic Culture Organism: Gram negative tawnya : O:ENTCLC Isolated O:GNR Isolated Organism: 1.1 Antibiotic Interpretation [facility] Status Aerobic Culture Gram negative tawnya Aerobic Culture Organism: Gram negative tawnya : O:ENTCLC Isolated O:GNR Isolated Organism: 1.1 Antibiotic Interpretation KY[facility] Status Aerobic Culture Organism: Enterobact er cloacae complex : Aerobic Culture Organism: Gram negative tawnya : O:ENTCLC Isolated O:GNR Isolated Organism: 1.1 Antibiotic Interpretation [facility] Status Aerobic Culture *ABNORMAL* Aerobic Culture Organism: Gram negative tawnya : O:ENTCLC Isolated O:GNR Isolated Organism: 1.1 Antibiotic Interpretation [facility] Status Aerobic Culture Some Enterobacterale s may develop resistance during Aerobic Culture Organism: Gram negative tawnya : O:ENTCLC Isolated O:GNR Isolated Organism: 1.1 Antibiotic Interpretation [facility] Status Aerobic Culture therapy with third-generation cephalosporins. This Aerobic Culture Organism: Gram negative tawnya : O:ENTCLC Isolated O:GNR Isolated Organism: 1.1 Antibiotic Interpretation [facility] Status Aerobic Culture resistance is most commonly seen with Citrobacter Aerobic Culture Organism: Gram negative tawnya : O:ENTCLC Isolated O:GNR Isolated Organism: 1.1 Antibiotic Interpretation [facility] Status Aerobic Culture freundii complex, Enterobacter cloacae complex, and Aerobic Culture Organism: Gram negative tawnya : O:ENTCLC Isolated O:GNR Isolated Organism: 1.1 Antibiotic Interpretation [facility] Status Aerobic Culture Klebsiella aerogenes . Isolates that initially test Aerobic Culture Organism: Gram negative tawnya : O:ENTCLC Isolated O:GNR Isolated Organism: 1.1 Antibiotic Interpretation [facility] Status Aerobic Culture susceptible may beco me resistant within a few days Aerobic Culture Organism: Gram negative tawnya : O:ENTCLC Isolated O:GNR Isolated Organism: 1.1 Antibiotic Interpretation [facility] Status Aerobic Culture after initiation of therapy. Testing subsequent Aerobic Culture Organism: Gram negative tawnya : O:ENTCLC Isolated O:GNR Isolated Organism: 1.1 Antibiotic Interpretation [facility] Status Aerobic Culture isolates may be warranted if clinically indicated. Aerobic Culture Organism: Gram negative tawnya : O:ENTCLC Isolated O:GNR Isolated Organism: 1.1 Antibiotic Interpretation [facility] Status Aerobic Culture (CLSI [id number]) Aerobic Culture Organism: Gram negative tawnya : O:ENTCLC Isolated O:GNR Isolated Organism: 1.1 Antibiotic Interpretation [facility] Status Aerobic Culture Heavy growth Aerobic Culture Organism: Gram negative tawnya : O:ENTCLC Isolated O:GNR Isolated Organism: 1.1 Antibiotic Interpretation [facility] Status Aerobic Culture Aerobic Culture Organism: Gram negative tawnya : O:ENTCLC Isolated O:GNR Isolated Organism: 1.1 Antibiotic Interpretation [facility] Status Aerobic Culture Mixed skin rohan Aerobic Culture Organism: Gram negative tawnya : O:ENTCLC Isolated O:GNR Isolated Organism: 1.1 Antibiotic Interpretation [facility] Status Aerobic Culture Heavy growth Aerobic Culture Organism: Gram negative tawnya : O:ENTCLC Isolated O:GNR Isolated Organism: 1.1 Antibiotic Interpretation [facility] Status Aerobic Culture Enterobacter cloacae complex Aerobic Culture Organism: Gram negative tawnya : O:ENTCLC Isolated O:GNR Isolated Organism: 1.1 Antibiotic Interpretation [facility] Status Aerobic Culture See Below For Report Aerobic Culture Organism: Gram negative tawnya : O:ENTCLC Isolated O:GNR Isolated Organism: 1.1 Antibiotic Interpretation KY[facility] Status Aerobic Culture See Below For Report Aerobic Culture Organism: Gram negative tawnya : O:ENTCLC Isolated O:GNR Isolated Organism: 1.1 Antibiotic Interpretation KYAW Status Aerobic Culture Performed at: [facility] Aerobic Culture Organism: Gram negative tawnya : O:ENTCLC Isolated O:GNR Isolated Organism: 1.1 Antibiotic Interpretation KYAW Status Aerobic Culture [address], [place] [id number] Aerobic Culture Organism: Gram negative tawnya : O:ENTCLC Isolated O:GNR Isolated Organism: 1.1 Antibiotic Interpretation KY[facility] Status Aerobic Culture Reference Archivist: Beatriz Simms PhD, Phone: [phone] Aerobic Culture Organism: Gram negative tawnya : O:ENTCLC Isolated O:GNR Isolated Organism: 1.1 Antibiotic Interpretation KY[facility] Status Aerobic Culture See Below For Report Aerobic Culture Organism: Gram negative tawnya : O:ENTCLC Isolated O:GNR Isolated Organism: 1.1 Antibiotic Interpretation [facility] Status Aerobic Culture AMOXICILLIN/CLAVULAN IC ACID R F Aerobic Culture Organism: Gram negative tawnya : O:ENTCLC Isolated O:GNR Isolated Organism: 1.1 Antibiotic Interpretation [facility] Status Aerobic Culture Cefepime S F Aerobic Culture Organism: Gram negative tawnya : O:ENTCLC Isolated O:GNR Isolated Organism: 1.1 Antibiotic Interpretation KY[facility] Status Aerobic Culture Cefoxitin R F Aerobic Culture Organism: Gram negative tawnya : O:ENTCLC Isolated O:GNR Isolated Organism: 1.1 Antibiotic Interpretation KYAW Status Aerobic Culture Cefpodoxime S F Aerobic Culture Organism: Gram negative tawnya : O:ENTCLC Isolated O:GNR Isolated Organism: 1.1 Antibiotic Interpretation KY[facility] Status Aerobic Culture Ertapenem S F Aerobic Culture Organism: Gram negative tawnya : O:ENTCLC Isolated O:GNR Isolated Organism: 1.1 Antibiotic Interpretation KY[facility] Status Aerobic Culture Gentamicin S F Aerobic Culture Organism: Gram negative tawnya : O:ENTCLC Isolated O:GNR Isolated Organism: 1.1 Antibiotic Interpretation KY[facility] Status Aerobic Culture Levofloxacin S F Aerobic Culture Organism: Gram negative tawnya : O:ENTCLC Isolated O:GNR Isolated Organism: 1.1 Antibiotic Interpretation KYAW Status Aerobic Culture Tetracycline S F Aerobic Culture Organism: Gram negative tawnya : O:ENTCLC Isolated O:GNR Isolated Organism: 1.1 Antibiotic Interpretation KAYW Status Aerobic Culture Tobramycin S F Aerobic Culture Organism: Gram negative tawnya : O:ENTCLC Isolated O:GNR Isolated Organism: 1.1 Antibiotic Interpretation [facility] Status Aerobic Culture Trimethoprim/Sulfame thox azole S F Aerobic Culture Organism: Gram negative tawnya : O:ENTCLC Isolated O:GNR Isolated Organism: 1.1 Antibiotic Interpretation KYAW Status Performing Lab: see note LC - [facility] LB SEE REPORT - Tours Hostess Id information not found for OBX-specific brand engineer legend Anaerobic Culture Reviewed date:03/14/2025 01:14:18 PM Interpretation: Performing Lab: Notes/Report: [facility] , Anaerobic Culture See Below For Report Anaerobic Culture Anaerobic Culture Specimen has been received and testing has been initiated. Anaerobic Culture Anaerobic Culture Anaerobic Culture Anaerobic Culture No anaerobic growth in 72 hours. Anaerobic Culture Performing Lab: see note LC - [facility] LB US abdomen limited Reviewed date:03/05/2025 01:04:44 PM Interpretation: Performing Lab: Notes/Report: Source Facility: [place] [address] [place] [address] Ultrasound Report Signed Patient: JOSÉ MIGUEL ANTONIO MR#: [id number] : 1940 Acct:[id number] Age/Sex: 85 / M ADM Date: 03/04/25 Loc: MS 202- Attending Dr: Francisca Serrano M.D. Ordering Physician: Francisca Serrano M.D. Date of Service: 03/05/25 Procedure(s): US abdomen limited Accession Number(s): [id number] cc: Francisca Serrano M.D. [place] [address] Patient Name: JOSÉ MIGUEL ANTONIO MRN: [id number] date: 1940 Sex: M Assigned Patient Location: MS Current Patient Location: MS Accession/Order Number: [id number] Exam Date: 03/05/2025 08:28 Report Date: 03/05/2025 08:31 At the request of: FRANCISCA SERRANO MD Procedure: US abdomen limited LIMITED ABDOMINAL ULTRASOUND - ascites survey: CLINICAL HISTORY: ascites COMPARISON: CT chest 11/21/2024 Ultrasound survey of all 4 quadrants and the pelvis was performed. There is moderate ascites throughout the peritoneal cavity. The largest pocket is at the right lower quadrant measuring 10 - 11 cm in depth. US/US abdomen limited IMPRESSION: MODERATE ASCITES. Impression dictated by: Angeline Bella M.D. 03/05/2025 8:31 AM Dictation Location: [place] [address] Electronically authenticated by: [id number] Y Date: 03/05/2025 08:31 Dictated By: Angeline Bella M.D. Signed By: 03/05/25 0834 DD/ 0831 TD/TT: Yield Loss Inspector: [place] [address] Ultrasound Report Signed Patient: MAIA ANTONIO MR#: [id number] : 1940 Acct:[id number] Age/Sex: 85 / M ADM Date: 03/04/25 Loc: MS 202- Attending Dr: Ratna Serrano M.D. Ordering Physician: Francisca Serrano M.D. Date of Service: 03/05/25 Procedure(s): US abd omen limited Accession Number(s): [id number] cc: Francisca Serrano M.D. [place] [id number] Patient Name: JOSÉ MIGUEL ANTONIO MRN: [id number] date: 1940 Sex: M Assigned Patient Location: MS Current Patient Location: MS Accession/Order Numb er: [id number] Exam Date: 03/05/2025 08:28 Report Date: 03/05/2025 08:31 At the request of: FRANCISCA SERRANO MD Procedure: US abdome n limited LIMITED ABDOMINAL ULTRASOUND - ascites survey: CLINICAL HISTORY: ascites COMPARISON: CT chest 11/21/2024 Ultrasound survey of all 4 quadrants and the pelvis was performed. There is moderate ascites throughout the peritoneal cavity. The largest pocket is at the right lower quad rant measuring 10 - 11 cm in depth. U S/US abdomen limited IMPRESSION: MODERATE ASCITES. Impression dictated by: Angeline Bella M.D. 03/05/2025 8:31 AM Dictation Location: [place] [address] Electronically authenticated by: [id number] Y Date: 03/05/2025 08:31 Dictated By: Angeline Bella M.D. Signed By: 03/05/25 0834 DD/ 0831 TD/TT: Yield Loss Inspector: Aerobic Culture Reviewed date:03/14/2025 01:14:18 PM Interpretation: Performing Lab: Notes/Report: [facility] , Aerobic Culture See Below For Report Aerobic Culture Organism: Gram negative tawnya : O:ENTCLC Isolated O:GNR Isolated Organism: 2.1 Antibiotic Interpretation [facility] Status AMOXICILLIN/CLAVULANIC ACID AMOXICILLIN/CLAVULANIC ACID R F Cefepime Cefepime S F Cefoxitin Cefoxitin R F Cefpodoxime Cefpodoxime S F Ertapenem Ertapenem S F Gentamicin Gentamicin S F Levofloxacin Levofloxacin S F Tetracycline Tetracycline S F Tobramycin Tobramycin S F Trimethoprim/Sulfameth oxazole Trimethoprim/Sulfameth oxazole S F Aerobic Culture *ABNORMAL* Aerobic Culture Organism: Gram negative tawnya : O:ENTCLC Isolated O:GNR Isolated Organism: 2.1 Antibiotic Interpretation [facility] Status AMOXICILLIN/CLAVULANIC ACID AMOXICILLIN/CLAVULANIC ACID R F Cefepime Cefepime S F Cefoxitin Cefoxitin R F Cefpodoxime Cefpodoxime S F Ertapenem Ertapenem S F Gentamicin Gentamicin S F Levofloxacin Levofloxacin S F Tetracycline Tetracycline S F Tobramycin Tobramycin S F Trimethoprim/Sulfameth oxazole Trimethoprim/Sulfameth oxazole S F Aerobic Culture Heavy growth Aerobic Culture Organism: Gram negative tawnya : O:ENTCLC Isolated O:GNR Isolated Organism: 2.1 Antibiotic Interpretation [facility] Status AMOXICILLIN/CLAVULANIC ACID AMOXICILLIN/CLAVULANIC ACID R F Cefepime Cefepime S F Cefoxitin Cefoxitin R F Cefpodoxime Cefpodoxime S F Ertapenem Ertapenem S F Gentamicin Gentamicin S F Levofloxacin Levofloxacin S F Tetracycline Tetracycline S F Tobramycin Tobramycin S F Trimethoprim/Sulfameth oxazole Trimethoprim/Sulfameth oxazole S F Aerobic Culture Aerobic Culture Organism: Gram negative tawnya : O:ENTCLC Isolated O:GNR Isolated Organism: 2.1 Antibiotic Interpretation [facility] Status AMOXICILLIN/CLAVULANIC ACID AMOXICILLIN/CLAVULANIC ACID R F Cefepime Cefepime S F Cefoxitin Cefoxitin R F Cefpodoxime Cefpodoxime S F Ertapenem Ertapenem S F Gentamicin Gentamicin S F Levofloxacin Levofloxacin S F Tetracycline Tetracycline S F Tobramycin Tobramycin S F Trimethoprim/Sulfameth oxazole Trimethoprim/Sulfameth oxazole S F Aerobic Culture Specimen has been received and testing has been initiated. Aerobic Culture Organism: Gram negative tawnya : O:ENTCLC Isolated O:GNR Isolated Organism: 2.1 Antibiotic Interpretation [facility] Status AMOXICILLIN/CLAVULANIC ACID AMOXICILLIN/CLAVULANIC ACID R F Cefepime Cefepime S F Cefoxitin Cefoxitin R F Cefpodoxime Cefpodoxime S F Ertapenem Ertapenem S F Gentamicin Gentamicin S F Levofloxacin Levofloxacin S F Tetracycline Tetracycline S F Tobramycin Tobramycin S F Trimethoprim/Sulfameth oxazole Trimethoprim/Sulfameth oxazole S F Aerobic Culture Gram negative tawnya Aerobic Culture Organism: Gram negative tawnya : O:ENTCLC Isolated O:GNR Isolated Organism: 2.1 Antibiotic Interpretation [facility] Status AMOXICILLIN/CLAVULANIC ACID AMOXICILLIN/CLAVULANIC ACID R F Cefepime Cefepime S F Cefoxitin Cefoxitin R F Cefpodoxime Cefpodoxime S F Ertapenem Ertapenem S F Gentamicin Gentamicin S F Levofloxacin Levofloxacin S F Tetracycline Tetracycline S F Tobramycin Tobramycin S F Trimethoprim/Sulfameth oxazole Trimethoprim/Sulfameth oxazole S F Aerobic Culture Organism: Enterobact er cloacae complex : Aerobic Culture Organism: Gram negative tawnya : O:ENTCLC Isolated O:GNR Isolated Organism: 2.1 Antibiotic Interpretation [facility] Status AMOXICILLIN/CLAVULANIC ACID AMOXICILLIN/CLAVULANIC ACID R F Cefepime Cefepime S F Cefoxitin Cefoxitin R F Cefpodoxime Cefpodoxime S F Ertapenem Ertapenem S F Gentamicin Gentamicin S F Levofloxacin Levofloxacin S F Tetracycline Tetracycline S F Tobramycin Tobramycin S F Trimethoprim/Sulfameth oxazole Trimethoprim/Sulfameth oxazole S F Aerobic Culture *ABNORMAL* Aerobic Culture Organism: Gram negative tawnya : O:ENTCLC Isolated O:GNR Isolated Organism: 2.1 Antibiotic Interpretation [facility] Status AMOXICILLIN/CLAVULANIC ACID AMOXICILLIN/CLAVULANIC ACID R F Cefepime Cefepime S F Cefoxitin Cefoxitin R F Cefpodoxime Cefpodoxime S F Ertapenem Ertapenem S F Gentamicin Gentamicin S F Levofloxacin Levofloxacin S F Tetracycline Tetracycline S F Tobramycin Tobramycin S F Trimethoprim/Sulfameth oxazole Trimethoprim/Sulfameth oxazole S F Aerobic Culture Some Enterobacterale s may develop resistance during Aerobic Culture Organism: Gram negative tawnya : O:ENTCLC Isolated O:GNR Isolated Organism: 2.1 Antibiotic Interpretation [facility] Status AMOXICILLIN/CLAVULANIC ACID AMOXICILLIN/CLAVULANIC ACID R F Cefepime Cefepime S F Cefoxitin Cefoxitin R F Cefpodoxime Cefpodoxime S F Ertapenem Ertapenem S F Gentamicin Gentamicin S F Levofloxacin Levofloxacin S F Tetracycline Tetracycline S F Tobramycin Tobramycin S F Trimethoprim/Sulfameth oxazole Trimethoprim/Sulfameth oxazole S F Aerobic Culture therapy with third-generation cephalosporins. This Aerobic Culture Organism: Gram negative tawnya : O:ENTCLC Isolated O:GNR Isolated Organism: 2.1 Antibiotic Interpretation [facility] Status AMOXICILLIN/CLAVULANIC ACID AMOXICILLIN/CLAVULANIC ACID R F Cefepime Cefepime S F Cefoxitin Cefoxitin R F Cefpodoxime Cefpodoxime S F Ertapenem Ertapenem S F Gentamicin Gentamicin S F Levofloxacin Levofloxacin S F Tetracycline Tetracycline S F Tobramycin Tobramycin S F Trimethoprim/Sulfameth oxazole Trimethoprim/Sulfameth oxazole S F Aerobic Culture resistance is most commonly seen with Citrobacter Aerobic Culture Organism: Gram negative tawnya : O:ENTCLC Isolated O:GNR Isolated Organism: 2.1 Antibiotic Interpretation [facility] Status AMOXICILLIN/CLAVULANIC ACID AMOXICILLIN/CLAVULANIC ACID R F Cefepime Cefepime S F Cefoxitin Cefoxitin R F Cefpodoxime Cefpodoxime S F Ertapenem Ertapenem S F Gentamicin Gentamicin S F Levofloxacin Levofloxacin S F Tetracycline Tetracycline S F Tobramycin Tobramycin S F Trimethoprim/Sulfameth oxazole Trimethoprim/Sulfameth oxazole S F Aerobic Culture freundii complex, Enterobacter cloacae complex, and Aerobic Culture Organism: Gram negative tawnya : O:ENTCLC Isolated O:GNR Isolated Organism: 2.1 Antibiotic Interpretation [facility] Status AMOXICILLIN/CLAVULANIC ACID AMOXICILLIN/CLAVULANIC ACID R F Cefepime Cefepime S F Cefoxitin Cefoxitin R F Cefpodoxime Cefpodoxime S F Ertapenem Ertapenem S F Gentamicin Gentamicin S F Levofloxacin Levofloxacin S F Tetracycline Tetracycline S F Tobramycin Tobramycin S F Trimethoprim/Sulfameth oxazole Trimethoprim/Sulfameth oxazole S F Aerobic Culture Klebsiella aerogenes . Isolates that initially test Aerobic Culture Organism: Gram negative tawnya : O:ENTCLC Isolated O:GNR Isolated Organism: 2.1 Antibiotic Interpretation [facility] Status AMOXICILLIN/CLAVULANIC ACID AMOXICILLIN/CLAVULANIC ACID R F Cefepime Cefepime S F Cefoxitin Cefoxitin R F Cefpodoxime Cefpodoxime S F Ertapenem Ertapenem S F Gentamicin Gentamicin S F Levofloxacin Levofloxacin S F Tetracycline Tetracycline S F Tobramycin Tobramycin S F Trimethoprim/Sulfameth oxazole Trimethoprim/Sulfameth oxazole S F Aerobic Culture susceptible may beco me resistant within a few days Aerobic Culture Organism: Gram negative tawnya : O:ENTCLC Isolated O:GNR Isolated Organism: 2.1 Antibiotic Interpretation [facility] Status AMOXICILLIN/CLAVULANIC ACID AMOXICILLIN/CLAVULANIC ACID R F Cefepime Cefepime S F Cefoxitin Cefoxitin R F Cefpodoxime Cefpodoxime S F Ertapenem Ertapenem S F Gentamicin Gentamicin S F Levofloxacin Levofloxacin S F Tetracycline Tetracycline S F Tobramycin Tobramycin S F Trimethoprim/Sulfameth oxazole Trimethoprim/Sulfameth oxazole S F Aerobic Culture after initiation of therapy. Testing subsequent Aerobic Culture Organism: Gram negative tawnya : O:ENTCLC Isolated O:GNR Isolated Organism: 2.1 Antibiotic Interpretation [facility] Status AMOXICILLIN/CLAVULANIC ACID AMOXICILLIN/CLAVULANIC ACID R F Cefepime Cefepime S F Cefoxitin Cefoxitin R F Cefpodoxime Cefpodoxime S F Ertapenem Ertapenem S F Gentamicin Gentamicin S F Levofloxacin Levofloxacin S F Tetracycline Tetracycline S F Tobramycin Tobramycin S F Trimethoprim/Sulfameth oxazole Trimethoprim/Sulfameth oxazole S F Aerobic Culture isolates may be warranted if clinically indicated. Aerobic Culture Organism: Gram negative tawnya : O:ENTCLC Isolated O:GNR Isolated Organism: 2.1 Antibiotic Interpretation [facility] Status AMOXICILLIN/CLAVULANIC ACID AMOXICILLIN/CLAVULANIC ACID R F Cefepime Cefepime S F Cefoxitin Cefoxitin R F Cefpodoxime Cefpodoxime S F Ertapenem Ertapenem S F Gentamicin Gentamicin S F Levofloxacin Levofloxacin S F Tetracycline Tetracycline S F Tobramycin Tobramycin S F Trimethoprim/Sulfameth oxazole Trimethoprim/Sulfameth oxazole S F Aerobic Culture (CLSI [id number]) Aerobic Culture Organism: Gram negative tawnya : O:ENTCLC Isolated O:GNR Isolated Organism: 2.1 Antibiotic Interpretation [facility] Status AMOXICILLIN/CLAVULANIC ACID AMOXICILLIN/CLAVULANIC ACID R F Cefepime Cefepime S F Cefoxitin Cefoxitin R F Cefpodoxime Cefpodoxime S F Ertapenem Ertapenem S F Gentamicin Gentamicin S F Levofloxacin Levofloxacin S F Tetracycline Tetracycline S F Tobramycin Tobramycin S F Trimethoprim/Sulfameth oxazole Trimethoprim/Sulfameth oxazole S F Aerobic Culture Heavy growth Aerobic Culture Organism: Gram negative tawnya : O:ENTCLC Isolated O:GNR Isolated Organism: 2.1 Antibiotic Interpretation [facility] Status AMOXICILLIN/CLAVULANIC ACID AMOXICILLIN/CLAVULANIC ACID R F Cefepime Cefepime S F Cefoxitin Cefoxitin R F Cefpodoxime Cefpodoxime S F Ertapenem Ertapenem S F Gentamicin Gentamicin S F Levofloxacin Levofloxacin S F Tetracycline Tetracycline S F Tobramycin Tobramycin S F Trimethoprim/Sulfameth oxazole Trimethoprim/Sulfameth oxazole S F Aerobic Culture Aerobic Culture Organism: Gram negative tawnya : O:ENTCLC Isolated O:GNR Isolated Organism: 2.1 Antibiotic Interpretation [facility] Status AMOXICILLIN/CLAVULANIC ACID AMOXICILLIN/CLAVULANIC ACID R F Cefepime Cefepime S F Cefoxitin Cefoxitin R F Cefpodoxime Cefpodoxime S F Ertapenem Ertapenem S F Gentamicin Gentamicin S F Levofloxacin Levofloxacin S F Tetracycline Tetracycline S F Tobramycin Tobramycin S F Trimethoprim/Sulfameth oxazole Trimethoprim/Sulfameth oxazole S F Aerobic Culture Mixed skin rohan Aerobic Culture Organism: Gram negative tawnya : O:ENTCLC Isolated O:GNR Isolated Organism: 2.1 Antibiotic Interpretation [facility] Status AMOXICILLIN/CLAVULANIC ACID AMOXICILLIN/CLAVULANIC ACID R F Cefepime Cefepime S F Cefoxitin Cefoxitin R F Cefpodoxime Cefpodoxime S F Ertapenem Ertapenem S F Gentamicin Gentamicin S F Levofloxacin Levofloxacin S F Tetracycline Tetracycline S F Tobramycin Tobramycin S F Trimethoprim/Sulfameth oxazole Trimethoprim/Sulfameth oxazole S F Aerobic Culture Heavy growth Aerobic Culture Organism: Gram negative tawnya : O:ENTCLC Isolated O:GNR Isolated Organism: 2.1 Antibiotic Interpretation [facility] Status AMOXICILLIN/CLAVULANIC ACID AMOXICILLIN/CLAVULANIC ACID R F Cefepime Cefepime S F Cefoxitin Cefoxitin R F Cefpodoxime Cefpodoxime S F Ertapenem Ertapenem S F Gentamicin Gentamicin S F Levofloxacin Levofloxacin S F Tetracycline Tetracycline S F Tobramycin Tobramycin S F Trimethoprim/Sulfameth oxazole Trimethoprim/Sulfameth oxazole S F Aerobic Culture Enterobacter cloacae complex Aerobic Culture Organism: Gram negative tawnya : O:ENTCLC Isolated O:GNR Isolated Organism: 2.1 Antibiotic Interpretation [facility] Status AMOXICILLIN/CLAVULANIC ACID AMOXICILLIN/CLAVULANIC ACID R F Cefepime Cefepime S F Cefoxitin Cefoxitin R F Cefpodoxime Cefpodoxime S F Ertapenem Ertapenem S F Gentamicin Gentamicin S F Levofloxacin Levofloxacin S F Tetracycline Tetracycline S F Tobramycin Tobramycin S F Trimethoprim/Sulfameth oxazole Trimethoprim/Sulfameth oxazole S F Aerobic Culture See Below For Report Aerobic Culture Organism: Gram negative tawnya : O:ENTCLC Isolated O:GNR Isolated Organism: 2.1 Antibiotic Interpretation [facility] Status AMOXICILLIN/CLAVULANIC ACID AMOXICILLIN/CLAVULANIC ACID R F Cefepime Cefepime S F Cefoxitin Cefoxitin R F Cefpodoxime Cefpodoxime S F Ertapenem Ertapenem S F Gentamicin Gentamicin S F Levofloxacin Levofloxacin S F Tetracycline Tetracycline S F Tobramycin Tobramycin S F Trimethoprim/Sulfameth oxazole Trimethoprim/Sulfameth oxazole S F Aerobic Culture See Below For Report Aerobic Culture Organism: Gram negative tawnya : O:ENTCLC Isolated O:GNR Isolated Organism: 2.1 Antibiotic Interpretation [facility] Status AMOXICILLIN/CLAVULANIC ACID AMOXICILLIN/CLAVULANIC ACID R F Cefepime Cefepime S F Cefoxitin Cefoxitin R F Cefpodoxime Cefpodoxime S F Ertapenem Ertapenem S F Gentamicin Gentamicin S F Levofloxacin Levofloxacin S F Tetracycline Tetracycline S F Tobramycin Tobramycin S F Trimethoprim/Sulfameth oxazole Trimethoprim/Sulfameth oxazole S F Aerobic Culture Performed at: [facility] Aerobic Culture Organism: Gram negative tawnya : O:ENTCLC Isolated O:GNR Isolated Organism: 2.1 Antibiotic Interpretation [place] Status AMOXICILLIN/CLAVULANIC ACID AMOXICILLIN/CLAVULANIC ACID R F Cefepime Cefepime S F Cefoxitin Cefoxitin R F Cefpodoxime Cefpodoxime S F Ertapenem Ertapenem S F Gentamicin Gentamicin S F Levofloxacin Levofloxacin S F Tetracycline Tetracycline S F Tobramycin Tobramycin S F Trimethoprim/Sulfameth oxazole Trimethoprim/Sulfameth oxazole S F Aerobic Culture [address], [place] [id number] Aerobic Culture Organism: Gram negative tawnya : O:ENTCLC Isolated O:GNR Isolated Organism: 2.1 Antibiotic Interpretation [facility] Status AMOXICILLIN/CLAVULANIC ACID AMOXICILLIN/CLAVULANIC ACID R F Cefepime Cefepime S F Cefoxitin Cefoxitin R F Cefpodoxime Cefpodoxime S F Ertapenem Ertapenem S F Gentamicin Gentamicin S F Levofloxacin Levofloxacin S F Tetracycline Tetracycline S F Tobramycin Tobramycin S F Trimethoprim/Sulfameth oxazole Trimethoprim/Sulfameth oxazole S F Aerobic Culture Reference Archivist: Beatriz Simms PhD, Phone: [phone] Aerobic Culture Organism: Gram negative tawnya : O:ENTCLC Isolated O:GNR Isolated Organism: 2.1 Antibiotic Interpretation [facility] Status AMOXICILLIN/CLAVULANIC ACID AMOXICILLIN/CLAVULANIC ACID R F Cefepime Cefepime S F Cefoxitin Cefoxitin R F Cefpodoxime Cefpodoxime S F Ertapenem Ertapenem S F Gentamicin Gentamicin S F Levofloxacin Levofloxacin S F Tetracycline Tetracycline S F Tobramycin Tobramycin S F Trimethoprim/Sulfameth oxazole Trimethoprim/Sulfameth oxazole S F Aerobic Culture See Below For Report Aerobic Culture Organism: Gram negative tawnya : O:ENTCLC Isolated O:GNR Isolated Organism: 2.1 Antibiotic Interpretation [facility] Status AMOXICILLIN/CLAVULANIC ACID AMOXICILLIN/CLAVULANIC ACID R F Cefepime Cefepime S F Cefoxitin Cefoxitin R F Cefpodoxime Cefpodoxime S F Ertapenem Ertapenem S F Gentamicin Gentamicin S F Levofloxacin Levofloxacin S F Tetracycline Tetracycline S F Tobramycin Tobramycin S F Trimethoprim/Sulfameth oxazole Trimethoprim/Sulfameth oxazole S F Aerobic Culture See Below For Report Aerobic Culture Organism: Gram negative tawnya : O:ENTCLC Isolated O:GNR Isolated Organism: 2.1 Antibiotic Interpretation [facility] Status AMOXICILLIN/CLAVULANIC ACID AMOXICILLIN/CLAVULANIC ACID R F Cefepime Cefepime S F Cefoxitin Cefoxitin R F Cefpodoxime Cefpodoxime S F Ertapenem Ertapenem S F Gentamicin Gentamicin S F Levofloxacin Levofloxacin S F Tetracycline Tetracycline S F Tobramycin Tobramycin S F Trimethoprim/Sulfameth oxazole Trimethoprim/Sulfameth oxazole S F Aerobic Culture See Below For Report Aerobic Culture Organism: Gram negative tawnya : O:ENTCLC Isolated O:GNR Isolated Organism: 2.1 Antibiotic Interpretation [facility] Status AMOXICILLIN/CLAVULANIC ACID AMOXICILLIN/CLAVULANIC ACID R F Cefepime Cefepime S F Cefoxitin Cefoxitin R F Cefpodoxime Cefpodoxime S F Ertapenem Ertapenem S F Gentamicin Gentamicin S F Levofloxacin Levofloxacin S F Tetracycline Tetracycline S F Tobramycin Tobramycin S F Trimethoprim/Sulfameth oxazole Trimethoprim/Sulfameth oxazole S F Aerobic Culture See Below For Report Aerobic Culture Organism: Gram negative tawnya : O:ENTCLC Isolated O:GNR Isolated Organism: 2.1 Antibiotic Interpretation [facility] Status AMOXICILLIN/CLAVULANIC ACID AMOXICILLIN/CLAVULANIC ACID R F Cefepime Cefepime S F Cefoxitin Cefoxitin R F Cefpodoxime Cefpodoxime S F Ertapenem Ertapenem S F Gentamicin Gentamicin S F Levofloxacin Levofloxacin S F Tetracycline Tetracycline S F Tobramycin Tobramycin S F Trimethoprim/Sulfameth oxazole Trimethoprim/Sulfameth oxazole S F Aerobic Culture See Below For Report Aerobic Culture Organism: Gram negative tawnya : O:ENTCLC Isolated O:GNR Isolated Organism: 2.1 Antibiotic Interpretation [facility] Status AMOXICILLIN/CLAVULANIC ACID AMOXICILLIN/CLAVULANIC ACID R F Cefepime Cefepime S F Cefoxitin Cefoxitin R F Cefpodoxime Cefpodoxime S F Ertapenem Ertapenem S F Gentamicin Gentamicin S F Levofloxacin Levofloxacin S F Tetracycline Tetracycline S F Tobramycin Tobramycin S F Trimethoprim/Sulfameth oxazole Trimethoprim/Sulfameth oxazole S F Aerobic Culture See Below For Report Aerobic Culture Organism: Gram negative tawnya : O:ENTCLC Isolated O:GNR Isolated Organism: 2.1 Antibiotic Interpretation [facility] Status AMOXICILLIN/CLAVULANIC ACID AMOXICILLIN/CLAVULANIC ACID R F Cefepime Cefepime S F Cefoxitin Cefoxitin R F Cefpodoxime Cefpodoxime S F Ertapenem Ertapenem S F Gentamicin Gentamicin S F Levofloxacin Levofloxacin S F Tetracycline Tetracycline S F Tobramycin Tobramycin S F Trimethoprim/Sulfameth oxazole Trimethoprim/Sulfameth oxazole S F Aerobic Culture See Below For Report Aerobic Culture Organism: Gram negative tawnya : O:ENTCLC Isolated O:GNR Isolated Organism: 2.1 Antibiotic Interpretation [facility] Status AMOXICILLIN/CLAVULANIC ACID AMOXICILLIN/CLAVULANIC ACID R F Cefepime Cefepime S F Cefoxitin Cefoxitin R F Cefpodoxime Cefpodoxime S F Ertapenem Ertapenem S F Gentamicin Gentamicin S F Levofloxacin Levofloxacin S F Tetracycline Tetracycline S F Tobramycin Tobramycin S F Trimethoprim/Sulfameth oxazole Trimethoprim/Sulfameth oxazole S F Aerobic Culture See Below For Report Aerobic Culture Organism: Gram negative tawnya : O:ENTCLC Isolated O:GNR Isolated Organism: 2.1 Antibiotic Interpretation [facility] Status AMOXICILLIN/CLAVULANIC ACID AMOXICILLIN/CLAVULANIC ACID R F Cefepime Cefepime S F Cefoxitin Cefoxitin R F Cefpodoxime Cefpodoxime S F Ertapenem Ertapenem S F Gentamicin Gentamicin S F Levofloxacin Levofloxacin S F Tetracycline Tetracycline S F Tobramycin Tobramycin S F Trimethoprim/Sulfameth oxazole Trimethoprim/Sulfameth oxazole S F Aerobic Culture See Below For Report Aerobic Culture Organism: Gram negative tawnya : O:ENTCLC Isolated O:GNR Isolated Organism: 2.1 Antibiotic Interpretation [facility] Status AMOXICILLIN/CLAVULANIC ACID AMOXICILLIN/CLAVULANIC ACID R F Cefepime Cefepime S F Cefoxitin Cefoxitin R F Cefpodoxime Cefpodoxime S F Ertapenem Ertapenem S F Gentamicin Gentamicin S F Levofloxacin Levofloxacin S F Tetracycline Tetracycline S F Tobramycin Tobramycin S F Trimethoprim/Sulfameth oxazole Trimethoprim/Sulfameth oxazole S F Aerobic Culture See Below For Report Aerobic Culture Organism: Gram negative tawnya : O:ENTCLC Isolated O:GNR Isolated Organism: 2.1 Antibiotic Interpretation [facility] Status AMOXICILLIN/CLAVULANIC ACID AMOXICILLIN/CLAVULANIC ACID R F Cefepime Cefepime S F Cefoxitin Cefoxitin R F Cefpodoxime Cefpodoxime S F Ertapenem Ertapenem S F Gentamicin Gentamicin S F Levofloxacin Levofloxacin S F Tetracycline Tetracycline S F Tobramycin Tobramycin S F Trimethoprim/Sulfameth oxazole Trimethoprim/Sulfameth oxazole S F Aerobic Culture See Below For Report Aerobic Culture Organism: Gram negative tawnya : O:ENTCLC Isolated O:GNR Isolated Organism: 2.1 Antibiotic Interpretation [facility] Status AMOXICILLIN/CLAVULANIC ACID AMOXICILLIN/CLAVULANIC ACID R F Cefepime Cefepime S F Cefoxitin Cefoxitin R F Cefpodoxime Cefpodoxime S F Ertapenem Ertapenem S F Gentamicin Gentamicin S F Levofloxacin Levofloxacin S F Tetracycline Tetracycline S F Tobramycin Tobramycin S F Trimethoprim/Sulfameth oxazole Trimethoprim/Sulfameth oxazole S F Performing Lab: see note LC - [facility] SEE REPORT - [employer] Id information not found for OBX-specific brand engineer legend BMP w/GFR Reviewed date:03/24/2025 01:04:51 PM Interpretation: Performing Lab: Notes/Report: SODIUM 134 134-146 mmol/L POTASSIUM 4.7 3.5-5.0 mmol/L CHLORIDE 104 98-109 mmol/L CARBON DIOXIDE 21 22-32 mmol/L ANION GAP 9 5-15 mmol/L BLOOD UREA NITROGEN 78 5-27 mg/dL CREATININE 2.00 0.70-1.20 mg/dL METHOD TRACE ABLE TO IDMS STANDARD GLUCOSE 121 65-99 mg/dL CALCIUM 8.9 8.5-10.5 mg/dL EGFR (CKD-EPI) NON-RACE DEPENDENT 33 >=60 ml/min/1.73sq.m eGFR not reported due to non-numeric value for Creatinine. Reported eGFR is based on the CKD-EPI 2020 equation that does not use a race coefficient. PERFORMED AT [address] [place] [address] ALT Reviewed date:03/24/2025 01:04:51 PM Interpretation: Performing Lab: Notes/Report: ALT 39 <=40 U/L PERFORMED AT [address] [place] [address] AST Reviewed date:03/24/2025 01:04:51 PM Interpretation: Performing Lab: Notes/Report: AST 49 <=41 U/L PERFORMED AT [address] [place] [address] CBC AND AUTO DIFF * Reviewed date:03/24/2025 12:50:32 PM Interpretation: Performing Lab: Notes/Report: WBC 5.2 4-11 x10E9/L RBC COUNT 3.86 4.1-5.7 X10E12/L HEMOGLOBIN 11.6 13-17 g/dL HEMATOCRIT 35.5 39-50 % MCV 92 80-100 fL MCH 30.0 27-34 pg MCHC 32.6 32-36 g/dL RDW 17.4 11.5-15 % PLATELET COUNT 179 150-450 X10E9/L MPV 9.2 7-12 fL NEUTROPHILS RELATIVE PERCENT BY AUTOMATED COUNT 69.6 LYMPHOCYTES RELATIVE PERCENT BY AUTOMATED COUNT 13.4 MONOCYTES RELATIVE PERCENT BY AUTOMATED COUNT 12.5 EOSINOPHILS RELATIVE PERCENT BY AUTOMATED COUNT 4.0 BASOPHILS RELATIVE PERCENT BY AUTOMATED COUNT 0.5 NEUTROPHILS ABSOLUTE COUNT BY AUTOMATED COUNT 3.6 1.5-6.6 10*3/uL LYMPHOCYTES ABSOLUTE COUNT (10*3/UL) BY AUTOMATED COUNT 0.7 1.0-3.5 10*3/uL MONOCYTES ABSOLUTE COUNT (10*3/UL) BY AUTOMATED COUNT 0.7 0.0-0.9 10*3/uL EOSINOPHILS ABSOLUTE COUNT (10*3/UL) BY AUTOMATED COUNT 0.2 0.0-0.4 10*3/uL BASOPHILS ABSOLUTE COUNT (10*3/UL) BY AUTOMATED COUNT 0.0 0.0-0.2 10*3/uL CELLAVISION DIFFERENTIAL TYPE AUTOMATED DIFFERENTIAL PERFORMED AT [address] [place] [address] LIVER PANEL Reviewed date:03/24/2025 01:04:51 PM Interpretation: Performing Lab: Notes/Report: TOTAL PROTEIN 6.4 6.0-8.0 g/dL ALBUMIN 3.2 3.2-5.3 g/dL BILIRUBIN,TOTAL 0.8 0.3-1.2 mg/dL ALKALINE PHOSPHATASE 138 39-130 U/L AST 49 <=41 U/L ALT 39 <=40 U/L BILIRUBIN,DIRECT 0.4 <=0.4 mg/dL PERFORMED AT [facility] [address] [place] [address]. [place] [address] LIPID PANEL Reviewed date:03/24/2025 09:32:25 PM Interpretation: Performing Lab: Notes/Report: CHOLESTEROL 154 150-200 mg/dL TRIGLYCERIDE 55 27-150 mg/dL HDL CHOLESTEROL 49 >39 mg/dL HDL <40 mg/dL - High Risk HDL > or = 40mg/dL- Desirable HDL >60 mg/dL - Negative Risk LDL (CALC) 94 <130 mg/dL LDL <100 mg/dL - Desirable LDL >160 mg/dL - High Risk CHOLESTEROL:HDL 3.1 1.0-5.0 NA VERY LOW LIPOPROTEIN 11 0-30 mg/dL PERFORMED AT [facility] [address],[place] [address] CA echo doppler complete Reviewed date:03/06/2025 01:25:45 PM Interpretation: Performing Lab: Notes/Report: Source Facility: [facility]-[address] [place] [address] [place] [address] Cardiology Report Signed Patient: JOSÉ MIGUEL ANTONIO MR#: [id number] : 1940 Acct:[id number] Age/Sex: 85 / M ADM Date: 03/04/25 Loc: MS 202-[address]: Francisca Serrano M.D. Ordering Physician: Francisca Serrano M.D. Date of Service: 03/05/25 Procedure(s): CA echo doppler complete Accession Number(s): [id number] cc: Francisca Serrano M.D. Patient Name: JOSÉ MIGUEL ANTONIO MR#: [id number] : 1940 Exam Date: 03/05/2025 Ordering Doctor: DR FRANCISCA SERRANO . ECHOCARDIOGRAM REPORT PROCEDURE: CA ECHO DOPPLER COMPLETE INDICATIONS: Dyspnea, elevated BNP and TROP, CABGx3, AICD, mitral valve clip (AZAEL), UT, congestive heart failure COMPARISON: None. DESCRIPTION: COMPLETE ECHOCARDIOGRAM Real-time transthoracic echocardiography with 2D, M-mode, spectral and color flow Doppler performed. QUALITY: Technical quality was good. LEFT VENTRICLE: Moderate dilatation. Normal left ventricular wall thickness. There is severe global hypokinesis with regional variability. Calculated left ventricular ejection fraction is 15%. LV EF: Severely reduced left ventricular ejection fraction, (<25%). DIASTOLIC: ATRIAL SEPTUM: Visually appears intact. LEFT ATRIUM: Severe dilatation. RIGHT ATRIUM: Severe dilatation. RIGHT VENTRICLE: Moderate dilatation. Systolic function appears reduced. Pacer wire present. TRICUSPID VALVE: Normal mobility and thickness. No stenosis with mild to moderate regurgitation. Moderately elevated right-sided pressures. RVSP is 55 mmHg. MITRAL VALVE: Mild to moderate mitral regurgitation. Mitral valve clip (AZAEL) appears well seated. Mean diastolic gradient is 1 mmHg at a heart rate of 71 bpm. AORTIC VALVE: Normal trileaflet appearance. Thickened aortic valve. Normal leaflet mobility. No significant aortic valve stenosis. Mild aortic regurgitation. AORTIC ROOT: Normal diameter and appearance, measuring 3.7 cm. Ascending aorta is moderately dilated (4.2 cm) PULMONIC VALVE: Normal thickness and mobility. No stenosis. Trivial regurgitation. PERICARDIUM: No evidence of pericardial effusion. IVC: IVC is dilated (2.2 cm), does not collapse. PLEURA: CONCLUSION: 1. The left ventricle is moderately dilated and exhibits severely reduced systolic function. LVEF is estimated at 15%. 2. Moderately dilated right ventricle with reduced systolic function. 3. MitraClip is well-seated with mild to moderate mitral regurgitation and normal mean diastolic gradient. 4. Severe biatrial dilatation. 5. Mild to moderate tricuspid regurgitation. 6. Mild aortic regurgitation. 7. Moderately elevated right-sided pressures. RVSP is 55 mmHg. 8. Moderately dilated ascending aorta measuring 4.2 cm. Adult Echocardiography Procedure Report Left Ventricle LVEDD (3.7 - 5.6 cm): 6.21 cm LVESD (2.2 - 4.0 cm): 6.20 cm LVIVS thickness (0.6 - 1.2 cm): 1.23 cm LVPW thickness (0.5 - 1.0 cm): 0.97 cm LVOT Max Gradient: 1.28 mm[Hg] LVOT Area (cm2): 0.57 m/s Peak Velocity (LVOT): 0.57 m/s Mean Velocity (LVOT): 0.39 m/s LVOT Diameter 2.11 cm Left Atrium LA Volume Index (2D A2C): 50.02 ml/m2 Left Atrium Systolic Dimension: 4.07 cm Mitral Valve MV E to A Ratio: 2.08 Mitral Valve A-Wave Peak Velocity: 0.53 m/s Mitral Valve E-Wave Peak Velocity: 1.10 m/s Right Ventricle Aorta AO Root Diam: 3.68 cm Ascending Ao Diam: 4.20 cm Aortic Valve AoV Area (Peak Samuel): 2.49 cm2 Peak Velocity(Antegrade Flow): 0.79 m/s, 1.42 m/s Peak Gradient(Antegrade Flow): 2.52 mm[Hg], 8.09 mm[Hg] Mean Velocity(Antegrade Flow): 0.57 m/s, 1.07 m/s Mean Gradient(Antegrade Flow): 1.50 mm[Hg], 5.13 mm[Hg] Velocity Time Integral: 14.87 cm, 41.55 cm Tricuspid Valve Peak Velocity (Regurgitant Flow): 2.37 m/s, 3.17 m/s Pulmonic Valve Peak Gradient: 2.35 mm[Hg], 1.66 mm[Hg] Right Atrium Right Atrium Systolic Pressure: 143.53 ml, 143.53 ml Dictated by: Malaika Faust M.D. on 03/05/2025 at 18:16 Approved by: Malaika Faust M.D. on 03/05/2025 at 18:23 Dictated By: MALAIKA FAUST Signed By: 03/05/251823 DD/ 22 TD/TT: Yield Loss Inspector: [place] [address] Cardiology Report Signed Patient: MAIA ANTONIO MR#: [id number] : 1940 Acct:[id number] Age/Sex: 85 / M ADM Date: 03/04/25 Loc: MS 202- Attending Dr: Ratna Serrano M.D. Ordering Physician: Francisca Serrano M.D. Date of Service: 03/05/25 Procedure(s): CA ech o doppler complete Accession Number(s): [id number] cc: Francisca Serrano M.D. Patient Name: JOSÉ MIGUEL ANTONIO MR#: [id number] : 1940 Exam Date: 03/05/2025 Ordering Doctor: DR FRANCISCA SERRANO . ECHOCARDIOGRAM REPORT PROCEDURE: CA ECHO DOPPLER COMPLETE INDICATIONS: Dyspnea , elevated BNP and TROP, CABGx3, AICD, mitral valve clip (AZALE), UT, congestive heart failure COMPARISON: None. DESCRIPTION: COMPLET E ECHOCARDIOGRAM Real-time transthoracic echocardiography wit h 2D, M-mode, spectral and color flow Doppler performed. QUALITY: Technical quality was good. LEFT VENTRICLE: Mode rate dilatation. Normal left ventricular wall thickness. There is severe global hypokinesis with regional variability. Calculated left ventricular ejection fraction is 15%. LV EF: Severely redu renate left ventricular ejection fraction, (<25%). DIASTOLIC: ATRIAL SEPTUM: Visua lly appears intact. LEFT ATRIUM: Severe dilatation. RIGHT ATRIUM: Severe dilatation. RIGHT VENTRICLE: Moderate dilatation. Systolic function appears reduced. Pacer wire present. TRICUSPID VALVE: Nor mal mobility and thickness. No stenosis with mild to moderate regurgitati on. Moderately elevated right-sided pressures. RVSP is 55 mmHg. MITRAL VALVE: Mild t o moderate mitral regurgitation. Mitral valve clip (AZAEL) appears well seated. Mean diastolic gradient is 1 mmHg at a heart rate of 71 bpm. AORTIC VALVE: Normal trileaflet appearance. Thickened aortic valve. Normal leaflet mobil ity. No significant aortic valve stenosis. Mild aortic regurgitation. AORTIC ROOT: Normal diameter and appearance, measuring 3.7 cm. 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 No stenosis. Trivial regurgitation. PERICARDIUM: No evid ence of pericardial effusion. IVC: IVC is dilated (2.2 cm), does not collapse. PLEURA: CONCLUSION: 1. The left ventricl e is moderately dilated and exhibits severely reduced systolic function. L VEF is estimated at 15%. 2. Moderately dilate d right ventricle with reduced systolic function. 3. MitraClip is well-seated with mild to moderate mitral regurgitation and normal mean diastoli c gradient. 4. Severe biatrial dilatation. 5. Mild to moderate tricuspid regurgitation. 6. Mild aortic regurgitation. 7. Moderately elevat ed right-sided pressures. RVSP is 55 mmHg. 8. Moderately dilate d ascending aorta measuring 4.2 cm. Adult Echocardiograp hy Procedure Report Left Ventricle LVEDD (3.7 - 5.6 cm) : 6.21 cm LVESD (2.2 - 4.0 cm) : 6.20 cm LVIVS thickness (0.6 - 1.2 cm): 1.23 cm LVPW thickness (0.5 - 1.0 cm): 0.97 cm LVOT Max Gradient: 1 .28 mm[Hg] LVOT Area (cm2): 0.5 7 m/s Peak Velocity (LVOT) : 0.57 m/s Mean Velocity (LVOT) : 0.39 m/s LVOT Diameter 2.11 cm Left Atrium LA Volume Index (2D A2C): 50.02 ml/m2 Left Atrium Systolic Dimension: 4.07 cm Mitral Valve MV E to A Ratio: 2.08 Mitral Valve A-Wave Peak Velocity: 0.53 m/s Mitral Valve E-Wave Peak Velocity: 1.10 m/s Right Ventricle Aorta AO Root Diam: 3.68 cm Ascending Ao Diam: 4 .20 cm Aortic Valve AoV Area (Peak Samuel): 2.49 cm2 Peak Velocity(Antegr baldomero Flow): 0.79 m/s, 1.42 m/s Peak Gradient(Antegr baldomero Flow): 2.52 mm[Hg], 8.09 mm[Hg] Mean Velocity(Antegr baldomero Flow): 0.57 m/s, 1.07 m/s Mean Gradient(Antegr baldomero Flow): 1.50 mm[Hg], 5.13 mm[Hg] Velocity Time Integr al: 14.87 cm, 41.55 cm Tricuspid Valve Peak Velocity (Regurgitant Flow): 2.37 m/s, 3.17 m/s Pulmonic Valve Peak Gradient: 2.35 mm[Hg], 1.66 mm[Hg] Right Atrium Right Atrium Systoli c Pressure: 143.53 ml, 143.53 ml Dictated by: Malaika Faust M.D. on 03/05/2025 at 18:16 Approved by: Malaika Faust M.D. on 03/05/2025 at 18:23 Dictated By: MALAIKA FAUST Signed By: 03/05/251823 DD/ 22 TD/TT: Yield Loss Inspector: JERMAINE KHAN Reviewed date:03/30/2025 04:33:40 PM Interpretation: Performing Lab: Notes/Report: B-TYPE NATRIURETIC PEPTIDE 2350 <=100 pg/mL PERFORMED AT [address] [place] [address] Troponin I High Sensitivity Reviewed date:03/05/2025 01:04:44 PM Interpretation: Performing Lab: Notes/Report: [facility] , Troponin I High Sensitivity 714.6 4.0-76.1 pg/mL RESULTS CALLED TO David Beatty RN @BY Amadou Brantley MT at 0557 CUT-OFF POINTS HAVE BEEN ESTABLISHED BASED ON THE FOURTH UNIVERSAL DEFINITION OF MYOCARDIAL INFARCTION. THE UPPER REFERENCE LIMIT (URL) OF TROPONIN, DEFINED THE 99TH PERCENTILE OF cTnI DISTRIBUTION IN A REFERENCE POPULATION, HAS BEEN CONFIRMED THE DECISION THRESHOLD FOR UT DIAGNOSIS. 99TH PERCENTILE = 76.2 PG/ML NOTE: HIGH-SENSITIVITY TROPONIN ASSAY IS NOT INTENDED TO BE USED IN ISOLATION BUT SHOULD BE INTERPRETED IN CONJUNCTION WITH OTHER DIAGNOSTIC AND CLINICAL INFORMATION. Performing Lab: see note ML - [facility] LB PROF 14(COMP METB) Reviewed date:03/05/2025 01:04:44 PM Interpretation: Performing Lab: Notes/Report: [facility] , Sodium 137 136-145 mmol/L Potassium 5.7 3.5-5.1 mmol/L Chloride 101 98-107 mmol/L Carbon Dioxide 23.6 21.0-32.0 mmol/L Anion Gap 18.1 Glucose 106 74-106 mg/dL Blood Urea Nitrogen 79.0 7.0-18.0 mg/dL RESULTS CALLED TO David Beatty RN @BY Amadou Brantley MT at 0557 Creatinine 3.20 0.70-1.30 mg/dL Estimated GFR ( Alexus 23 >=60 mL/min/1.73m 2 Estimated GFR (Non- Katlyn 19 >=60 mL/min/1.73m 2 BUN Creatinine Ratio 24.7 Calcium 9.1 8.5-10.1 mg/dL Bilirubin Total 1.5 0.2-1.0 mg/dL Aspartate Amino Transferase 25 15-37 U/L Alanine Aminotransferase 17 16-63 U/L Alkaline Phosphatase 105 46-116 U/L Total Protein 6.7 6.4-8.2 g/dL Albumin Level 2.7 3.4-5.0 g/dL Globulin 4.0 Albumin Globulin Ratio 0.7 Performing Lab: see note ML - [facility] LB IRON PROFILE ([facility]) Reviewed date:03/30/2025 04:33:40 PM Interpretation: Performing Lab: Notes/Report: IRON 46 50-212 ug/dL TRANSFERRIN 188 168-336 mg/dL IRON BINDING 263 250-425 ug/dL IRON SATURATION 17 20-50 % SATURATION PERFORMED AT [address], [place] [address] BNP Reviewed date:03/05/2025 01:04:44 PM Interpretation: Performing Lab: Notes/Report: [facility] , NT Pro B Type Natriuretic Pept >70681.0 <=1800.0 pg/mL RESULTS CALLED TO David Beatty RN @BY Amadou Brantley MT at 0557 Performing Lab: see note - [facility] LB XR chest 1V Reviewed date:03/04/2025 06:45:48 PM Interpretation: Performing Lab: Notes/Report: Source Facility: [facility]-[address] [place] [address] [place] [address] XRay Report Signed Patient: JOSÉ MIGUEL ANTONIO MR#: [id number] : 1940 Acct:[id number] Age/Sex: 85 / M ADM Date: 03/04/25 Loc: ER Attending Dr: Ordering Physician: Lily Crowe Date of Service: 03/04/25 Procedure(s): XR chest 1V Accession Number(s): [id number] cc: Lily Crowe; Farncisca Serrano M.D. [place] [address] Patient Name: JOSÉ MIGUEL ANTONIO MRN: [id number] date: 1940 Sex: M Assigned Patient Location: ER Current Patient Location: ER Accession/Order Number: [id number] Exam Date: 03/04/2025 15:59 Report Date: 03/04/2025 16:01 At the request of: LILY CROWE NP Procedure: XR chest 1V Plain film chest Single view HISTORY: Shortness of breath COMPARISON: CT chest 11/21/2024 FINDINGS: SUPPORT DEVICES: None POSTSURGICAL CHANGES: Cardiac device intact. Sternal wires. HEART: Similar cardiomegaly PULMONARY ISREAL: Within normal limits MEDIASTINUM: Unremarkable LUNGS AND PLEURA: Redemonstration of moderate left pleural effusion with adjacent atelectasis. No pneumothorax. BONY STRUCTURES: Intact ADDITIONAL FINDINGS None XR/XR chest 1V IMPRESSION: Redemonstration of moderate left pleural effusion and adjacent atelectasis. Cardiomegaly. Intact cardiac device Impression dictated by: Birgit Garrido M.D. 03/04/2025 4:01 PM Dictation Location: [place] [address] Electronically authenticated by: [id number] Y Date: 03/04/2025 16:01 Dictated By: Birgit Garrido D.O. Signed By: 03/04/25 1603 DD/ 1601 TD/TT: Yield Loss Inspector: [place] [address] XRay Report Signed Patient: MAIA ANTONIO MR#: [id number] : 1940 Acct:[id number] Age/Sex: 85 / M ADM Date: 03/04/25 Loc: ER Attending Dr: Ordering Physician: Lily Crowe Date of Service: 03/04/25 Procedure(s): XR analia st 1V Accession Number(s): [id number] cc: Lily Crowe; Francisca Serrano M.D. [place] [id number] Patient Name: JOSÉ MIGUEL ANTONIO MRN: [id number] date: 1940 Sex: M Assigned Patient Location: ER Current Patient Location: ER Accession/Order Numb er: [id number] Exam Date: 03/04/2025 15:59 Report Date: 03/04/2025 16:01 At the request of: LILY CROWE NP Procedure: XR chest 1V Plain film chest Sin gle view HISTORY: Shortness o f breath COMPARISON: CT chest 11/21/2024 FINDINGS: SUPPORT DEVICES: None POSTSURGICAL CHANGES : Cardiac device intact. Sternal wires. HEART: Similar cardiomegaly PULMONARY ISREAL: With in normal limits MEDIASTINUM: Unremarkable LUNGS AND PLEURA: Redemonstration of moderate left pleural effusion with adjacent atelectasis . No pneumothorax. BONY STRUCTURES: Intact ADDITIONAL FINDINGS None X R/XR chest 1V IMPRESSION: Redemonstration of moderate left pleural effusion and adjacent atelectasis. Cardiomegaly. Intact cardiac device Impression dictated by: Birgit Garrido M.D. 03/04/2025 4:01 PM Dictation Location: [place] [address] Electronically authenticated by: [id number] Y Date: 03/04/2025 16:01 Dictated By: Birgit Garrido D.O. Signed By: 03/04/25 1603 DD/ 1601 TD/TT: Yield Loss Inspector: TSH Reviewed date:03/05/2025 01:04:44 PM Interpretation: Performing Lab: Notes/Report: [facility] , Thyroid Stimulating Hormone 2.083 0.358-3.740 uIU/mL Performing Lab: see note ML - [facility] LB BRN NATRIURETIC PEP Reviewed date:04/06/2025 07:33:46 PM Interpretation: Performing Lab: Notes/Report: B-TYPE NATRIURETIC PEPTIDE 3367 <=100 pg/mL PERFORMED AT [address] [place] [address] T4 Reviewed date:03/05/2025 01:04:44 PM Interpretation: Performing Lab: Notes/Report: [facility] , T4 Thyroxine 7.60 4.50-12.10 ug/dL Performing Lab: see note ML - [facility] LB FREE T3 Reviewed date:04/07/2025 12:55:42 PM Interpretation: Performing Lab: Notes/Report: FREE T3 2.89 2.50-3.90 pg/mL PERFORMED AT [facility] [address],[place] [address] IRON PROFILE ([facility]) Reviewed date:04/07/2025 12:55:42 PM Interpretation: Performing Lab: Notes/Report: IRON 60 50-212 ug/dL TRANSFERRIN 202 168-336 mg/dL IRON BINDING 283 250-425 ug/dL IRON SATURATION 21 20-50 % SATURATION PERFORMED AT [facility] [address],[place] [address] T4, FREE Reviewed date:04/06/2025 07:33:46 PM Interpretation: Performing Lab: Notes/Report: FREE T4 1.19 0.61-1.60 ng/dL PERFORMED AT [address] [place] [address] TSH Reviewed date:04/06/2025 07:33:46 PM Interpretation: Performing Lab: Notes/Report: TSH 1.10 0.49-4.67 uIU/mL PERFORMED AT [address] [place] [address] FREE T3 Reviewed date:03/05/2025 01:04:44 PM Interpretation: Performing Lab: Notes/Report: [facility] , Free T3 1.02 2.18-3.98 pg/mL Performing Lab: see note ML - [facility] LB CBC AUTO DIFF Reviewed date:03/04/2025 06:45:48 PM Interpretation: Performing Lab: Notes/Report: [facility] , White Blood Count 9.8 4.0-11.0 10 3/uL Red Blood Count 4.40 4.70-6.10 10 6/uL Hemoglobin 13.8 14.0-18.0 g/dL Hematocrit 42.3 42.0-54.0 % Mean Corpuscular Volume 96.1 80.0-94.0 fL Mean Corpuscular Hemoglobin 31.4 25.9-34.0 pg Mean Corpuscular HGB Conc 32.6 29.9-35.2 g/dL Red Cell Distribution Width 17.4 11.0-15.0 % Platelet Count 172 150-450 10 3/uL Mean Platelet Volume 10.9 9.5-13.5 fL Performing Lab: see note ML - [facility] LB BMP w/GFR Reviewed date:02/22/2025 08:31:44 PM Interpretation: Performing Lab: Notes/Report: SODIUM 136 134-146 mmol/L POTASSIUM 3.2 3.5-5.0 mmol/L CHLORIDE 101 98-109 mmol/L CARBON DIOXIDE 23 22-32 mmol/L ANION GAP 12 5-15 mmol/L BLOOD UREA NITROGEN 47 5-27 mg/dL CREATININE 2.32 0.70-1.20 mg/dL METHOD TRACE ABLE TO IDMS STANDARD GLUCOSE 154 65-99 mg/dL CALCIUM 8.5 8.5-10.5 mg/dL EGFR (CKD-EPI) NON-RACE DEPENDENT 27 >=60 ml/min/1.73sq.m eGFR not reported due to non-numeric value for Creatinine. Reported eGFR is based on the CKD-EPI 2021 equation that does not use a race coefficient. PERFORMED AT [address] [place] [id number] COMPREHENSIVE METABOLIC PANE L Reviewed date:02/14/2025 04:12:33 PM Interpretation: Performing Lab: Notes/Report: SODIUM 134 134-146 mmol/L POTASSIUM 4.1 3.5-5.0 mmol/L CHLORIDE 103 98-109 mmol/L CARBON DIOXIDE 21 22-32 mmol/L ANION GAP 10 5-15 mmol/L BLOOD UREA NITROGEN 50 5-27 mg/dL CREATININE 2.47 0.70-1.20 mg/dL METHOD TRACE ABLE TO IDMS STANDARD GLUCOSE 100 65-99 mg/dL CALCIUM 8.1 8.5-10.5 mg/dL TOTAL PROTEIN 7.0 6.0-8.0 g/dL ALBUMIN 3.3 3.2-5.3 g/dL ALKALINE PHOSPHATASE 103 39-130 U/L AST 19 <=41 U/L ALT 11 <=40 U/L BILIRUBIN,TOTAL 1.3 0.3-1.2 mg/dL EGFR (CKD-EPI) NON-RACE DEPENDENT 25 >=60 ml/min/1.73sq.m eGFR not reported due to non-numeric value for Creatinine. Reported eGFR is based on the CKD-EPI 2021 equation that does not use a race coefficient. PERFORMED AT [address] [place] [address] CBC AND AUTO DIFF * Reviewed date:01/25/2025 02:06:12 PM Interpretation: Performing Lab: Notes/Report: WBC 4.9 4-11 x10E9/L RBC COUNT 3.62 4.1-5.7 X10E12/L HEMOGLOBIN 11.2 13-17 g/dL HEMATOCRIT 33.7 39-50 % MCV 93 80-100 fL MCH 31.0 27-34 pg MCHC 33.2 32-36 g/dL RDW 17.5 11.5-15 % PLATELET COUNT 161 150-450 X10E9/L MPV 7.9 7-12 fL NEUTROPHILS RELATIVE PERCENT BY AUTOMATED COUNT 65.9 LYMPHOCYTES RELATIVE PERCENT BY AUTOMATED COUNT 15.2 MONOCYTES RELATIVE PERCENT BY AUTOMATED COUNT 12.1 EOSINOPHILS RELATIVE PERCENT BY AUTOMATED COUNT 6.3 BASOPHILS RELATIVE PERCENT BY AUTOMATED COUNT 0.5 NEUTROPHILS ABSOLUTE COUNT BY AUTOMATED COUNT 3.3 1.5-6.6 10*3/uL LYMPHOCYTES ABSOLUTE COUNT (10*3/UL) BY AUTOMATED COUNT 0.8 1.0-3.5 10*3/uL MONOCYTES ABSOLUTE COUNT (10*3/UL) BY AUTOMATED COUNT 0.6 0.0-0.9 10*3/uL EOSINOPHILS ABSOLUTE COUNT (10*3/UL) BY AUTOMATED COUNT 0.3 0.0-0.4 10*3/uL BASOPHILS ABSOLUTE COUNT (10*3/UL) BY AUTOMATED COUNT 0.0 0.0-0.2 10*3/uL CELLAVISION DIFFERENTIAL TYPE AUTOMATED DIFFERENTIAL PERFORMED AT [address] [place] [address] LIPID PANEL Reviewed date:01/19/2025 09:12:07 PM Interpretation: Performing Lab: Notes/Report: CHOLESTEROL 144 150-200 mg/dL TRIGLYCERIDE 51 27-150 mg/dL HDL CHOLESTEROL 46 >39 mg/dL HDL <40 mg/dL - High Risk HDL > or = 40mg/dL- Desirable HDL >60 mg/dL - Negative Risk LDL (CALC) 88 <130 mg/dL LDL <100 mg/dL - Desirable LDL >160 mg/dL - High Risk CHOLESTEROL:HDL 3.1 1.0-5.0 NA VERY LOW LIPOPROTEIN 10 0-30 mg/dL PERFORMED AT [facility] [address],[place] [address] THYROID PROFILE Reviewed date:01/18/2025 07:54:11 PM Interpretation: Performing Lab: Notes/Report: FREE T4 1.29 0.61-1.60 ng/dL TSH 8.64 0.49-4.67 uIU/mL PERFORMED AT [address] [place] [address] URIC ACID Reviewed date:01/18/2025 07:54:11 PM Interpretation: Performing Lab: Notes/Report: URIC ACID 11.4 2.6-7.2 mg/dL PERFORMED AT [address] [place] [address] FREE T3 Reviewed date:01/19/2025 09:12:07 PM Interpretation: Performing Lab: Notes/Report: FREE T3 2.15 2.50-3.90 pg/mL PERFORMED AT [facility] [address],[place] [address] COMPREHENSIVE METABOLIC PANE L Reviewed date:02/11/2025 09:04:45 PM Interpretation: Performing Lab: Notes/Report: SODIUM 134 134-146 mmol/L POTASSIUM 3.9 3.5-5.0 mmol/L CHLORIDE 102 98-109 mmol/L CARBON DIOXIDE 23 22-32 mmol/L ANION GAP 9 5-15 mmol/L BLOOD UREA NITROGEN 58 5-27 mg/dL CREATININE 2.03 0.70-1.20 mg/dL METHOD TRACE ABLE TO IDOK STANDARD GLUCOSE 93 65-99 mg/dL CALCIUM 8.9 8.5-10.5 mg/dL TOTAL PROTEIN 7.3 6.0-8.0 g/dL ALBUMIN 3.5 3.2-5.3 g/dL ALKALINE PHOSPHATASE 118 39-130 U/L AST 24 <=41 U/L ALT 12 <=40 U/L BILIRUBIN,TOTAL 1.2 0.3-1.2 mg/dL EGFR (CKD-EPI) NON-RACE DEPENDENT 32 >=60 ml/min/1.73sq.m eGFR not reported due to non-numeric value for Creatinine. Reported eGFR is based on the CKD-EPI 2020 equation that does not use a race coefficient. PERFORMED AT [address] [place] [address] VITAMIN D 25 HYD TOT Reviewed date:01/19/2025 09:12:07 PM Interpretation: Performing Lab: Notes/Report: VITAMIN D 25 HYD TOT 41.6 30.0-100.0 ng/mL Vitamin D status 25 OH Vitamin D -------- Deficiency <20 ng/mL Insufficiency 20-29 ng/mL Sufficiency 30-100 ng/mL Toxicity >100 ng/mL NOTE: A pediatric reference range has not been established by the land measurer of this kit. The [place] [employer] recommends a Vitamin D level of = or >20ng/mL in infants and children. PERFORMED AT [facility] [address],[place] [address] BRN NATRIURETIC PEP Reviewed date:01/18/2025 07:54:11 PM Interpretation: Performing Lab: Notes/Report: B-TYPE NATRIURETIC PEPTIDE 2720 <=100 pg/mL PERFORMED AT [address] [place] [address] MAGNESIUM Reviewed date:01/18/2025 07:54:11 PM Interpretation: Performing Lab: Notes/Report: MAGNESIUM 2.6 1.8-2.6 mg/dL PERFORMED AT [address] [place] [address] Troponin I High Sensitivity Reviewed date:11/22/2024 09:47:32 AM Interpretation: Performing Lab: Notes/Report: [facility] , Troponin I High Sensitivity 1120.2 4.0-76.1 pg/mL RESULTS CALLED TO MARIXA ELIAS RN CUT-OFF POINTS HAVE BEEN ESTABLISHED BASED ON THE FOURTH UNIVERSAL DEFINITION OF MYOCARDIAL INFARCTION. THE UPPER REFERENCE LIMIT (URL) OF TROPONIN, DEFINED THE 99TH PERCENTILE OF cTnI DISTRIBUTION IN A REFERENCE POPULATION, HAS BEEN CONFIRMED THE DECISION THRESHOLD FOR UT DIAGNOSIS. 99TH PERCENTILE = 76.2 PG/ML NOTE: HIGH-SENSITIVITY TROPONIN ASSAY IS NOT INTENDED TO BE USED IN ISOLATION BUT SHOULD BE INTERPRETED IN CONJUNCTION WITH OTHER DIAGNOSTIC AND CLINICAL INFORMATION. Performing Lab: see note ML - [facility] LB QuantiFERON-TB Gold Plus Reviewed date:12/01/2024 08:19:42 PM Interpretation: Performing Lab: Notes/Report: [facility] , QuantiFERON Incubation Incubation performed QuantiFERON-TB Gold Plus Negative No response to M tuberculosis antigens detected. Infection with M tuberculosis is unlikely, but high risk individuals should be considered for additional testing (ATS/IDSA/CDC Clinical Practice Guidelines, 2017). The reference range is an Antigen minus Nil result of <0.35 IU/mL. Chemiluminescence immunoassay methodology QuantiFERON Criteria QuantiFERON-TB Gold Plus is a qualitative indirect test for M tuberculosis infection (including disease) and is intended for use in conjunction with risk assessment, radiography, and other medical and diagnostic evaluations. The QuantiFERON-TB Gold Plus result is determined by subtracting the Nil value from either TB antigen (Ag) value. The Mitogen tube serves as a control for the test. QuantiFERON TB1 Ag Value 0.06 QuantiFERON TB2 Ag Value 0.06 QuantiFERON Nil Value 0.06 QuantiFERON Mitogen Value 2.40 Performing Lab: see note LC - [facility] LB MAGNESIUM Reviewed date:11/22/2024 09:47:32 AM Interpretation: Performing Lab: Notes/Report: [facility] , Magnesium 2.1 1.8-2.4 mg/dL Performing Lab: see note ML - [facility] LB CBC AUTO DIFF Reviewed date:11/22/2024 09:47:32 AM Interpretation: Performing Lab: Notes/Report: [facility] , White Blood Count 5.3 4.0-11.0 10 3/uL Red Blood Count 3.95 4.70-6.10 10 6/uL Hemoglobin 11.6 14.0-18.0 g/dL Hematocrit 37.4 42.0-54.0 % Mean Corpuscular Volume 94.7 80.0-94.0 fL Mean Corpuscular Hemoglobin 29.4 25.9-34.0 pg Mean Corpuscular HGB Conc 31.0 29.9-35.2 g/dL Red Cell Distribution Width 20.5 11.0-15.0 % Platelet Count 169 150-450 10 3/uL Mean Platelet Volume 10.4 9.5-13.5 fL Neutrophils Percent Auto 61.0 43.0-75.0 % Lymphocytes Percent Auto 21.8 20.5-60.0 % Monocytes Percent Auto 12.4 1.7-12.0 % Eosinophils Percent Auto 3.6 0.9-7.0 % Basophils Percent Auto 0.8 0.2-2.0 % Immature Granulocytes Pct Auto 0.4 0.0-0.5 % Neutrophils Absolute Auto 3.2 1.4-6.5 10 3/uL Lymphocytes Absolute Auto 1.2 1.2-3.8 10 3/uL Monocytes Absolute Auto 0.7 0.3-0.8 10 3/uL Eosinophils Absolute Auto 0.2 0.0-0.7 10 3/uL Basophils Absolute Auto 0.0 0.0-0.1 10 3/uL Immature Granulocytes Abs Auto 0.02 0.00-0.03 10 3/uL Performing Lab: see note ML - [facility] LB BNP Reviewed date:11/22/2024 09:47:32 AM Interpretation: Performing Lab: Notes/Report: [facility] , NT Pro B Type Natriuretic Pept >27873.0 <=1800.0 pg/mL RESULTS CALLED TO YAHIR PARSONS RN Performing Lab: see note - [facility] Troponin I High Sensitivity Reviewed date:09/14/2024 08:18:26 PM Interpretation: Performing Lab: Notes/Report: [facility] , Troponin I High Sensitivity 514.7 4.0-76.1 pg/mL RESULTS CALLED TO roopa larios rn CUT-OFF POINTS HAVE BEEN ESTABLISHED BASED ON THE FOURTH UNIVERSAL DEFINITION OF MYOCARDIAL INFARCTION. THE UPPER REFERENCE LIMIT (URL) OF TROPONIN, DEFINED THE 99TH PERCENTILE OF cTnI DISTRIBUTION IN A REFERENCE POPULATION, HAS BEEN CONFIRMED THE DECISION THRESHOLD FOR UT DIAGNOSIS. 99TH PERCENTILE = 76.2 PG/ML NOTE: HIGH-SENSITIVITY TROPONIN ASSAY IS NOT INTENDED TO BE USED IN ISOLATION BUT SHOULD BE INTERPRETED IN CONJUNCTION WITH OTHER DIAGNOSTIC AND CLINICAL INFORMATION. Performing Lab: see note ML - [facility] LB MAGNESIUM Reviewed date:09/14/2024 08:18:26 PM Interpretation: Performing Lab: Notes/Report: [facility] , Magnesium 2.5 1.8-2.4 mg/dL Performing Lab: see note ML - [facility] LB BNP Reviewed date:09/14/2024 08:18:26 PM Interpretation: Performing Lab: Notes/Report: [facility] , NT Pro B Type Natriuretic Pept 66280.0 <=1800.0 pg/mL RESULTS CALLED TO flakito larios rn Performing Lab: see note ML - [facility] LB Troponin I High Sensitivity Reviewed date:09/13/2024 03:05:26 PM Interpretation: Performing Lab: Notes/Report: [facility] , Troponin I High Sensitivity 427.1 4.0-76.1 pg/mL RESULTS CALLED TO ANGELITO RAJPUT RN CUT-OFF POINTS HAVE BEEN ESTABLISHED BASED ON THE FOURTH UNIVERSAL DEFINITION OF MYOCARDIAL INFARCTION. THE UPPER REFERENCE LIMIT (URL) OF TROPONIN, DEFINED THE 99TH PERCENTILE OF cTnI DISTRIBUTION IN A REFERENCE POPULATION, HAS BEEN CONFIRMED THE DECISION THRESHOLD FOR UT DIAGNOSIS. 99TH PERCENTILE = 76.2 PG/ML NOTE: HIGH-SENSITIVITY TROPONIN ASSAY IS NOT INTENDED TO BE USED IN ISOLATION BUT SHOULD BE INTERPRETED IN CONJUNCTION WITH OTHER DIAGNOSTIC AND CLINICAL INFORMATION. Performing Lab: see note ML - [facility] LB TSH Reviewed date:09/13/2024 03:05:26 PM Interpretation: Performing Lab: Notes/Report: [facility] , Thyroid Stimulating Hormone 3.674 0.358-3.740 uIU/mL Performing Lab: see note ML - [facility] LB T4 Reviewed date:09/13/2024 03:05:26 PM Interpretation: Performing Lab: Notes/Report: [facility] , T4 Thyroxine 3.70 4.50-12.10 ug/dL Performing Lab: see note ML - [facility] LB PROF 14(COMP METB) Reviewed date:09/13/2024 03:05:26 PM Interpretation: Performing Lab: Notes/Report: [facility] , Sodium 137 136-145 mmol/L Potassium 4.8 3.5-5.1 mmol/L Chloride 104 98-107 mmol/L Carbon Dioxide 29.5 21.0-32.0 mmol/L Anion Gap 8.3 Glucose 97 74-106 mg/dL Blood Urea Nitrogen 46.0 7.0-18.0 mg/dL Creatinine 2.31 0.70-1.30 mg/dL Estimated GFR ( Alexus 33 >=60 mL/min/1.73m 2 Estimated GFR (Non- Katlyn 27 >=60 mL/min/1.73m 2 BUN Creatinine Ratio 19.9 Calcium 8.3 8.5-10.1 mg/dL Bilirubin Total 1.1 0.2-1.0 mg/dL Aspartate Amino Transferase 37 15-37 U/L Alanine Aminotransferase 27 16-63 U/L Alkaline Phosphatase 100 46-116 U/L Total Protein 6.2 6.4-8.2 g/dL Albumin Level 2.5 3.4-5.0 g/dL Globulin 3.7 Albumin Globulin Ratio 0.7 Performing Lab: see note ML - [facility] LB MAGNESIUM Reviewed date:09/13/2024 03:05:26 PM Interpretation: Performing Lab: Notes/Report: [facility] , Magnesium 2.5 1.8-2.4 mg/dL Performing Lab: see note ML - [facility] LB CBC AUTO DIFF Reviewed date:09/13/2024 03:05:26 PM Interpretation: Performing Lab: Notes/Report: [facility] , White Blood Count 5.3 4.0-11.0 10 3/uL Red Blood Count 3.45 4.70-6.10 10 6/uL Hemoglobin 9.5 14.0-18.0 g/dL Hematocrit 31.2 42.0-54.0 % Mean Corpuscular Volume 90.4 80.0-94.0 fL Mean Corpuscular Hemoglobin 27.5 25.9-34.0 pg Mean Corpuscular HGB Conc 30.4 29.9-35.2 g/dL Red Cell Distribution Width 18.7 11.0-15.0 % Platelet Count 209 150-450 10 3/uL Mean Platelet Volume 9.9 9.5-13.5 fL Neutrophils Percent Auto 65.9 43.0-75.0 % Lymphocytes Percent Auto 17.8 20.5-60.0 % Monocytes Percent Auto 11.9 1.7-12.0 % Eosinophils Percent Auto 3.2 0.9-7.0 % Basophils Percent Auto 0.6 0.2-2.0 % Immature Granulocytes Pct Auto 0.6 0.0-0.5 % Neutrophils Absolute Auto 3.5 1.4-6.5 10 3/uL Lymphocytes Absolute Auto 0.9 1.2-3.8 10 3/uL Monocytes Absolute Auto 0.6 0.3-0.8 10 3/uL Eosinophils Absolute Auto 0.2 0.0-0.7 10 3/uL Basophils Absolute Auto 0.0 0.0-0.1 10 3/uL Immature Granulocytes Abs Auto 0.03 0.00-0.03 10 3/uL Performing Lab: see note ML - [facility] LB BNP Reviewed date:09/13/2024 03:05:26 PM Interpretation: Performing Lab: Notes/Report: [facility] , NT Pro B Type Natriuretic Pept 28078.0 <=1800.0 pg/mL RESULTS CALLED TO ANGELITO RAJPUT RN Performing Lab: see note ML - [facility] LB XR chest 1V Reviewed date:09/12/2024 08:30:37 PM Interpretation: Performing Lab: Notes/Report: Source Facility: [facility]-[address] [place] [address] [place] [address] XRay Report Signed Patient: JOSÉ MIGUEL ANTONIO MR#: [id number] : 1940 Acct:[id number] Age/Sex: 84 / M ADM Date: 09/12/24 Loc: ER Attending Dr: Ordering Physician: Birgit Winter Date of Service: 09/12/24 Procedure(s): XR chest 1V Accession Number(s): [id number] cc: Francisca Serrano M.D.; Birgit Winter [place] [address] Patient Name: JOSÉ MIGUEL ANTONIO MRN: [id number] date: 1940 Sex: M Assigned Patient Location: ER Current Patient Location: ED.MAIN Accession/Order Number: [id number] Exam Date: 09/12/2024 18:30 Report Date: 09/12/2024 20:06 At the request of: BIRGIT WINTER Procedure: XR chest 1V EXAMINATION: XR chest 1V HISTORY: sob COMPARISON: XR chest 09/26/2023, 02/12/2024 FINDINGS: LUNGS: Mild haziness within medial right lung base. Opacities obscure the left lung base. VASCULATURE: No increased pulmonary vasculature. PLEURA: Suspect left pleural effusion. CARDIAC: Cardiomegaly; increased compared to prior study. MEDIASTINUM: No visible mass or adenopathy. BONES: No fracture or visible bone lesion. OTHER: Cardiac pacer. XR/XR chest 1V IMPRESSION: 1. Increased cardiomegaly, mild right/moderate left basilar infiltrates, and left pleural effusion. Possible congestive heart failure. Electronically authenticated by: ROHIT ABDI Date: 09/12/2024 20:06 Dictated By: Rohit Abdi M.D. Signed By: 09/12/242007 DD/ 05 TD/TT: Yield Loss Inspector: [place] [address] XRay Report Signed Patient: MAIA ANTONIO MR#: [id number] : 1940 Acct:[id number] Age/Sex: 84 / M ADM Date: 09/12/24 Loc: ER Attending Dr: Ordering Physician: Birgit Winter Date of Service: 09/12/24 Procedure(s): XR analia st 1V Accession Number(s): [id number] cc: Francisca Serrano M.D. ; Birgit Winter [place] [address] Patient Name: JOSÉ MIGUEL ANTONIO MRN: [id number] date: 1940 Sex: M Assigned Patient Location: ER Current Patient Location: ED.MAIN Accession/Order Numb er: [id number] Exam Date: 18:30 Report Date: 09/12/2024 20:06 At the request of: BIRGIT WINTER Procedure: XR chest 1V EXAMINATION: XR chest 1V HISTORY: sob COMPARISON: XR chest 09/26/2023, 02/12/2024 FINDINGS: LUNGS: Mild haziness within medial right lung base. Opacities obscure the left lung base. VASCULATURE: No increased pulmonary vasculature. PLEURA: Suspect left pleural effusion. CARDIAC: Cardiomegal y; increased compared to prior study. MEDIASTINUM: No visi ble mass or adenopathy. BONES: No fracture o r visible bone lesion. OTHER: Cardiac pacer. X R/XR chest 1V IMPRESSION: 1. Increased cardiomegaly, mild right/moderate left basilar infiltrates, and left pleural effusio n. Possible congestive heart failure. Electronically authenticated by: ROHIT ABDI Date: 09/12/2024 20:06 Dictated By: Rohit Abdi M.D. Signed By: 09/12/242007 DD/ 05 TD/TT: Yield Loss Inspector: ECG 12 lead Reviewed date:09/16/2024 03:14:14 PM Interpretation: Performing Lab: Notes/Report: Source Facility: [place] [address] [place] [address] Electrocardiograph Report Signed Patient: JOSÉ MIGUEL ANTONIO MR#: [id number] : 1940 Acct:[id number] Age/Sex: 84 / M ADM Date: 09/12/24 Loc: MS 202-[address]: Francisca Serrano M.D. Ordering Physician: Birgit Winter Date of Service: 09/12/24 Procedure(s): ECG 12 lead Accession Number(s): [id number] cc: [facility] Test Date: 2024-09-12 Pat Name: JOSÉ MIGUEL ANTONIO Department: Room: - Gender: Male Chief Specialist Leed: : 1940 Requested By: FRANCISCA SERRANO Order Number: [id number] Reading MD: SHANKAR CURTIS Measurements Intervals [place] Rate: 71 P: 22 WI: 282 QRS: 36 QRSD: 112 T: 150 QT: 410 QTc: 433 Interpretive Statements 1100 Sinus rhythm 1474 with frequent supraventricular premature complexes 2231 First degree AV block 2540 Incomplete left bundle branch block [address] depression 7500 Abnormal QRS-T angle 8101 Low QRS voltage in limb leads 9150 abnormal ECG Electronically Signed On 09-15-2024 6:57:13 EST by SHANKAR CURTIS Dictated By: Shankar Curtis D.O. Signed By: 09/15/24 0657 DD/ 175 TD/TT: Yield Loss Inspector: [place] [address] Electrocardiograph Report Signed Patient: MAIA ANTONIO MR#: [id number] : 1940 Acct:[id number] Age/Sex: 84 / M ADM Date: 09/12/24 Loc: MS 202-[address]: Ratna Serrano M.D. Ordering Physician: Birgit Winter Date of Service: 09/12/24 Procedure(s): ECG 12 lead Accession Number(s): [id number] cc: [facility] Test Date: 2024-09-12 Pat Name: JOSÉ MIGUEL GRANADO Department: 43 Room: - Gender: Male Chief Specialist Leed: : 1940 Requested By: FRANCISCA SERRANO Order Number: [id number] Reading MD: SHANKAR CURTIS Measurements Intervals [place] Rate: 71 P: 22 WI: 282 QRS: 36 QRSD: 112 T: 150 QT: 410 QTc: 433 Interpretive Statements 1100 Sinus rhythm 1474 with frequent supraventricular premature complexes 2231 First degree AV block 2540 Incomplete left bundle branch block [address] depression 7500 Abnormal QRS-T angle 8101 Low QRS voltage in limb leads 9150 abnormal ECG Electronically Elayne d On 09-15-2024 6:57:13 EST by SHANKAR CURTIS Dictated By: Shankar Curtis D.O. Signed By: 09/15/24 0657 DD/ 175 TD/TT: Yield Loss Inspector: Type and Screen Reviewed date:09/12/2024 08:30:37 PM Interpretation: Performing Lab: Notes/Report: [facility] , Blood Type O Positive Antibody Screen NEGATIVE Prothrombin Time INR Reviewed date:09/12/2024 08:30:37 PM Interpretation: Performing Lab: Notes/Report: [facility] , Prothrombin Time 14.6 9.0-11.6 sec INR 1.43 DESIRED INR: 2.0-3.0 CONDITIONS NOT LISTED BELOW 2.5-3.5 FOR PROSTHETIC HEART VALVE REPLACEMENT 2.5-3.5 RECURRENT THROMBOSIS Performing Lab: see note ML - [facility] LB PTT Reviewed date:09/12/2024 08:30:37 PM Interpretation: Performing Lab: Notes/Report: [facility] , Partial Thromboplastin Time 29.3 22.3-36.2 sec Performing Lab: see note ML - [facility] LB PROF CHEM 8 (BAS METB) Reviewed date:09/12/2024 08:30:37 PM Interpretation: Performing Lab: Notes/Report: [facility] , Sodium 137 136-145 mmol/L Potassium 4.5 3.5-5.1 mmol/L Chloride 101 98-107 mmol/L Carbon Dioxide 33.7 21.0-32.0 mmol/L Anion Gap 6.8 Glucose 103 74-106 mg/dL Blood Urea Nitrogen 49.0 7.0-18.0 mg/dL Creatinine 2.51 0.70-1.30 mg/dL Estimated GFR ( Alexus 30 >=60 mL/min/1.73m 2 Estimated GFR (Non- Katlyn 25 >=60 mL/min/1.73m 2 BUN Creatinine Ratio 19.5 Calcium 8.6 8.5-10.1 mg/dL Performing Lab: see note ML - [facility] LB CBC AUTO DIFF Reviewed date:09/12/2024 08:30:37 PM Interpretation: Performing Lab: Notes/Report: [facility] , White Blood Count 6.1 4.0-11.0 10 3/uL Red Blood Count 3.46 4.70-6.10 10 6/uL Hemoglobin 9.4 14.0-18.0 g/dL Hematocrit 31.6 42.0-54.0 % Mean Corpuscular Volume 91.3 80.0-94.0 fL Mean Corpuscular Hemoglobin 27.2 25.9-34.0 pg Mean Corpuscular HGB Conc 29.7 29.9-35.2 g/dL Red Cell Distribution Width 18.6 11.0-15.0 % Platelet Count 236 150-450 10 3/uL Mean Platelet Volume 9.9 9.5-13.5 fL Neutrophils Percent Auto 73.3 43.0-75.0 % Lymphocytes Percent Auto 12.9 20.5-60.0 % Monocytes Percent Auto 10.9 1.7-12.0 % Eosinophils Percent Auto 2.1 0.9-7.0 % Basophils Percent Auto 0.3 0.2-2.0 % Immature Granulocytes Pct Auto 0.5 0.0-0.5 % Neutrophils Absolute Auto 4.4 1.4-6.5 10 3/uL Lymphocytes Absolute Auto 0.8 1.2-3.8 10 3/uL Monocytes Absolute Auto 0.7 0.3-0.8 10 3/uL Eosinophils Absolute Auto 0.1 0.0-0.7 10 3/uL Basophils Absolute Auto 0.0 0.0-0.1 10 3/uL Immature Granulocytes Abs Auto 0.03 0.00-0.03 10 3/uL Performing Lab: see note ML - [facility] LB BNP Reviewed date:09/12/2024 08:30:37 PM Interpretation: Performing Lab: Notes/Report: [facility] , NT Pro B Type Natriuretic Pept 82418.0 <=1800.0 pg/mL RESULTS CALLED TO ER Dr. Issa @BY Amadou Brantley MLT at 1908 Performing Lab: see note - [facility] Vitamin B12 Reviewed date:07/31/2024 06:24:46 AM Interpretation: Performing Lab: Notes/Report: [facility] , Vitamin B12 851 843-2966 pg/mL Performed at: [address] [id number] Reference Archivist: Ari Simms PhD, Phone: [phone] Performing Lab: see note [facility] Vitamin B1 (Thiamine), Blood Reviewed date:08/03/2024 12:58:51 PM Interpretation: Performing Lab: Notes/Report: [facility] , Vitamin B1 (Thiamine), Blood 112.2 66.5-200.0 nmol/L This test was developed and its performance characteristics determined by [facility]. It has not been cleared or approved by the Food and Drug Administration. Performed at: [address] [id number] Reference Archivist: Juan Ramon Menchaca MD, Phone: [phone] Performing Lab: see note [facility] Troponin I High Sensitivity Reviewed date:07/21/2024 02:18:45 PM Interpretation: Performing Lab: Notes/Report: [facility] , Troponin I High Sensitivity 630.0 4.0-76.1 pg/mL RESULTS CALLED TO ADARSH MOTA)[facility] CUT-OFF POINTS HAVE BEEN ESTABLISHED BASED ON THE FOURTH UNIVERSAL DEFINITION OF MYOCARDIAL INFARCTION. THE UPPER REFERENCE LIMIT (URL) OF TROPONIN, DEFINED THE 99TH PERCENTILE OF cTnI DISTRIBUTION IN A REFERENCE POPULATION, HAS BEEN CONFIRMED THE DECISION THRESHOLD FOR [place] DIAGNOSIS. 99TH PERCENTILE = 76.2 PG/ML NOTE: HIGH-SENSITIVITY TROPONIN ASSAY IS NOT INTENDED TO BE USED IN ISOLATION BUT SHOULD BE INTERPRETED IN CONJUNCTION WITH OTHER DIAGNOSTIC AND CLINICAL INFORMATION. Performing Lab: see note - [facility] TSH Reviewed date:07/21/2024 02:18:45 PM Interpretation: Performing Lab: Notes/Report: [facility] , Thyroid Stimulating Hormone 2.175 0.358-3.740 uIU/mL Performing Lab: see note - [facility] LB PROF 14(COMP METB) Reviewed date:07/30/2024 09:24:23 PM Interpretation: Performing Lab: Notes/Report: [facility] , Sodium 142 136-145 mmol/L Potassium 3.3 3.5-5.1 mmol/L Chloride 101 98-107 mmol/L Carbon Dioxide 30.4 21.0-32.0 mmol/L Anion Gap 13.9 Glucose 105 74-106 mg/dL Blood Urea Nitrogen 43.0 7.0-18.0 mg/dL Creatinine 2.27 0.70-1.30 mg/dL Estimated GFR ( Alexus 34 >=60 mL/min/1.73m 2 Estimated GFR (Non- Katlyn 28 >=60 mL/min/1.73m 2 BUN Creatinine Ratio 18.9 Calcium 9.7 8.5-10.1 mg/dL Bilirubin Total 1.3 0.2-1.0 mg/dL Aspartate Amino Transferase 35 15-37 U/L Alanine Aminotransferase 26 16-63 U/L Alkaline Phosphatase 93 46-116 U/L Total Protein 7.3 6.4-8.2 g/dL Albumin Level 3.3 3.4-5.0 g/dL Globulin 4.0 Albumin Globulin Ratio 0.8 Performing Lab: see note ML - [facility] LB MAGNESIUM Reviewed date:07/30/2024 09:24:23 PM Interpretation: Performing Lab: Notes/Report: [facility] , Magnesium 2.2 1.8-2.4 mg/dL Performing Lab: see note ML - [facility] LB CBC AUTO DIFF Reviewed date:07/30/2024 09:24:23 PM Interpretation: Performing Lab: Notes/Report: [facility] , White Blood Count 5.4 4.0-11.0 10 3/uL Red Blood Count 4.59 4.70-6.10 10 6/uL Hemoglobin 12.9 14.0-18.0 g/dL Hematocrit 41.6 42.0-54.0 % Mean Corpuscular Volume 90.6 80.0-94.0 fL Mean Corpuscular Hemoglobin 28.1 25.9-34.0 pg Mean Corpuscular HGB Conc 31.0 29.9-35.2 g/dL Red Cell Distribution Width 17.2 11.0-15.0 % Platelet Count 169 150-450 10 3/uL Mean Platelet Volume 10.4 9.5-13.5 fL Neutrophils Percent Auto 72.0 43.0-75.0 % Lymphocytes Percent Auto 15.1 20.5-60.0 % Monocytes Percent Auto 9.1 1.7-12.0 % Eosinophils Percent Auto 2.8 0.9-7.0 % Basophils Percent Auto 0.6 0.2-2.0 % Immature Granulocytes Pct Auto 0.4 0.0-0.5 % Neutrophils Absolute Auto 3.9 1.4-6.5 10 3/uL Lymphocytes Absolute Auto 0.8 1.2-3.8 10 3/uL Monocytes Absolute Auto 0.5 0.3-0.8 10 3/uL Eosinophils Absolute Auto 0.2 0.0-0.7 10 3/uL Basophils Absolute Auto 0.0 0.0-0.1 10 3/uL Immature Granulocytes Abs Auto 0.02 0.00-0.03 10 3/uL Performing Lab: see note ML - [facility] LB BNP Reviewed date:07/30/2024 09:24:23 PM Interpretation: Performing Lab: Notes/Report: [facility] , NT Pro B Type Natriuretic Pept >94019.0 <=1800.0 pg/mL RESULTS CALLED TO KEVIN CROCKER LPN AT 1412 Performing Lab: see note - [facility] LB PROF 14(COMP METB) Reviewed date:04/21/2024 03:08:46 PM Interpretation: Performing Lab: Notes/Report: [facility] , Sodium 139 136-145 mmol/L Potassium 4.6 3.5-5.1 mmol/L Chloride 102 98-107 mmol/L Carbon Dioxide 25.3 21.0-32.0 mmol/L Anion Gap 16.3 Glucose 110 74-106 mg/dL Blood Urea Nitrogen 43.0 7.0-18.0 mg/dL Creatinine 2.18 0.70-1.30 mg/dL Estimated GFR ( Alexus 35 >=60 Estimated GFR (Non- Katlyn 29 >=60 BUN Creatinine Ratio 19.7 Calcium 9.3 8.5-10.1 mg/dL Bilirubin Total 0.9 0.2-1.0 mg/dL Aspartate Amino Transferase 29 15-37 U/L Alanine Aminotransferase 19 16-63 U/L Alkaline Phosphatase 102 46-116 U/L Total Protein 6.8 6.4-8.2 g/dL Albumin Level 3.2 3.4-5.0 g/dL Globulin 3.6 Albumin Globulin Ratio 0.9 Performing Lab: see note ML - [facility] LB IRON Reviewed date:04/21/2024 03:08:46 PM Interpretation: Performing Lab: Notes/Report: [facility] , Iron 33.0 65.0-175.0 ug/dL Performing Lab: see note ML - [facility] LB FERRITIN Reviewed date:04/21/2024 03:08:46 PM Interpretation: Performing Lab: Notes/Report: [facility] , Ferritin 96.0 26.0-388.0 ng/mL Performing Lab: see note ML - [facility] LB CBC AUTO DIFF Reviewed date:04/21/2024 03:08:46 PM Interpretation: Performing Lab: Notes/Report: [facility] , White Blood Count 7.2 4.0-11.0 10 3/uL Red Blood Count 3.50 4.70-6.10 10 6/uL Hemoglobin 10.1 14.0-18.0 g/dL Hematocrit 33.8 42.0-54.0 % Mean Corpuscular Volume 96.6 80.0-94.0 fL Mean Corpuscular Hemoglobin 28.9 25.9-34.0 pg Mean Corpuscular HGB Conc 29.9 29.9-35.2 g/dL Red Cell Distribution Width 19.0 11.0-15.0 % Platelet Count 216 150-450 10 3/uL Mean Platelet Volume 10.1 9.5-13.5 fL Neutrophils Percent Auto 68.0 43.0-75.0 % Lymphocytes Percent Auto 16.6 20.5-60.0 % Monocytes Percent Auto 10.4 1.7-12.0 % Eosinophils Percent Auto 3.9 0.9-7.0 % Basophils Percent Auto 0.7 0.2-2.0 % Immature Granulocytes Pct Auto 0.4 0.0-0.5 % Neutrophils Absolute Auto 4.9 1.4-6.5 10 3/uL Lymphocytes Absolute Auto 1.2 1.2-3.8 10 3/uL Monocytes Absolute Auto 0.8 0.3-0.8 10 3/uL Eosinophils Absolute Auto 0.3 0.0-0.7 10 3/uL Basophils Absolute Auto 0.1 0.0-0.1 10 3/uL Immature Granulocytes Abs Auto 0.03 0.00-0.03 10 3/uL Performing Lab: see note ML - [facility] LB BNP Reviewed date:04/21/2024 03:08:46 PM Interpretation: Performing Lab: Notes/Report: [facility] , NT Pro B Type Natriuretic Pept 70479.0 <=1800.0 pg/mL RESULTS CALLED TO AM Y @ DR. SERRANO @BY Marylou Julio at 1414 Performing Lab: see note - [facility] LB MAGNESIUM Reviewed date:03/29/2025 06:00:17 PM Interpretation: Performing Lab: Notes/Report: MAGNESIUM 2.7 1.8-2.6 mg/dL PERFORMED AT [address] [place] [address] BMP w/GFR Reviewed date:03/29/2025 06:00:17 PM Interpretation: Performing Lab: Notes/Report: SODIUM 134 134-146 mmol/L POTASSIUM 4.1 3.5-5.0 mmol/L CHLORIDE 106 98-109 mmol/L CARBON DIOXIDE 22 22-32 mmol/L ANION GAP 6 5-15 mmol/L BLOOD UREA NITROGEN 72 5-27 mg/dL CREATININE 1.95 0.70-1.20 mg/dL METHOD TRACE ABLE TO IDOK STANDARD GLUCOSE 91 65-99 mg/dL CALCIUM 8.5 8.5-10.5 mg/dL EGFR (CKD-EPI) NON-RACE DEPENDENT 34 >=60 ml/min/1.73sq.m eGFR not reported due to non-numeric value for Creatinine. Reported eGFR is based on the CKD-EPI 2020 equation that does not use a race coefficient. PERFORMED AT [address] [place] [address] PSA. SCREENING Reviewed date:03/24/2025 09:32:25 PM Interpretation: Performing Lab: Notes/Report: PROSTATIC SPEC ANT <0.01 0.00-4.00 ng/mL The method used for this test is Ronna [place] DXI chemiluminescent immunoassay. Values obtained by different assay methods cannot be used interchangeably. PERFORMED AT [address], [place] [address] CBC AND AUTO DIFF * Reviewed date:03/29/2025 06:00:17 PM Interpretation: Performing Lab: Notes/Report: WBC 4.6 4-11 x10E9/L RBC COUNT 3.50 4.1-5.7 X10E12/L HEMOGLOBIN 10.7 13-17 g/dL HEMATOCRIT 31.9 39-50 % MCV 91 80-100 fL MCH 30.5 27-34 pg MCHC 33.4 32-36 g/dL RDW 17.0 11.5-15 % PLATELET COUNT 149 150-450 X10E9/L MPV 8.8 7-12 fL NEUTROPHILS RELATIVE PERCENT BY AUTOMATED COUNT 67.6 LYMPHOCYTES RELATIVE PERCENT BY AUTOMATED COUNT 14.0 MONOCYTES RELATIVE PERCENT BY AUTOMATED COUNT 14.0 EOSINOPHILS RELATIVE PERCENT BY AUTOMATED COUNT 3.9 BASOPHILS RELATIVE PERCENT BY AUTOMATED COUNT 0.5 NEUTROPHILS ABSOLUTE COUNT BY AUTOMATED COUNT 3.1 1.5-6.6 10*3/uL LYMPHOCYTES ABSOLUTE COUNT (10*3/UL) BY AUTOMATED COUNT 0.6 1.0-3.5 10*3/uL MONOCYTES ABSOLUTE COUNT (10*3/UL) BY AUTOMATED COUNT 0.6 0.0-0.9 10*3/uL EOSINOPHILS ABSOLUTE COUNT (10*3/UL) BY AUTOMATED COUNT 0.2 0.0-0.4 10*3/uL BASOPHILS ABSOLUTE COUNT (10*3/UL) BY AUTOMATED COUNT 0.0 0.0-0.2 10*3/uL CELLAVISION DIFFERENTIAL TYPE AUTOMATED DIFFERENTIAL PERFORMED AT [address] [place] [address] FREE T3 Reviewed date:03/30/2025 04:33:40 PM Interpretation: Performing Lab: Notes/Report: FREE T3 2.79 2.50-3.90 pg/mL PERFORMED AT [address], [place] [address] THYROID PROFILE Reviewed date:03/29/2025 06:06:52 PM Interpretation: Performing Lab: Notes/Report: FREE T4 1.12 0.61-1.60 ng/dL TSH 0.75 0.49-4.67 uIU/mL PERFORMED AT [address] [place] [address] BMP w/GFR Reviewed date:04/06/2025 07:33:46 PM Interpretation: Performing Lab: Notes/Report: SODIUM 134 134-146 mmol/L POTASSIUM 4.9 3.5-5.0 mmol/L CHLORIDE 102 98-109 mmol/L CARBON DIOXIDE 25 22-32 mmol/L ANION GAP 7 5-15 mmol/L BLOOD UREA NITROGEN 47 5-27 mg/dL CREATININE 2.04 0.70-1.20 mg/dL METHOD TRACE ABLE TO IDMS STANDARD GLUCOSE 129 65-99 mg/dL CALCIUM 8.9 8.5-10.5 mg/dL EGFR (CKD-EPI) NON-RACE DEPENDENT 32 >=60 ml/min/1.73sq.m eGFR not reported due to non-numeric value for Creatinine. Reported eGFR is based on the CKD-EPI 2020 equation that does not use a race coefficient. PERFORMED AT [address] [place] [address] MAGNESIUM Reviewed date:04/06/2025 07:33:46 PM Interpretation: Performing Lab: Notes/Report: MAGNESIUM 2.6 1.8-2.6 mg/dL PERFORMED AT [address] [place] [address] CBC AND AUTO DIFF * Reviewed date:04/06/2025 04:17:29 PM Interpretation: Performing Lab: Notes/Report: WBC 5.7 4-11 x10E9/L RBC COUNT 3.78 4.1-5.7 X10E12/L HEMOGLOBIN 11.5 13-17 g/dL HEMATOCRIT 34.6 39-50 % MCV 92 80-100 fL MCH 30.4 27-34 pg MCHC 33.2 32-36 g/dL RDW 17.3 11.5-15 % PLATELET COUNT 143 150-450 X10E9/L MPV 8.3 7-12 fL NEUTROPHILS RELATIVE PERCENT BY AUTOMATED COUNT 70.8 LYMPHOCYTES RELATIVE PERCENT BY AUTOMATED COUNT 12.9 MONOCYTES RELATIVE PERCENT BY AUTOMATED COUNT 11.5 EOSINOPHILS RELATIVE PERCENT BY AUTOMATED COUNT 4.2 BASOPHILS RELATIVE PERCENT BY AUTOMATED COUNT 0.6 NEUTROPHILS ABSOLUTE COUNT BY AUTOMATED COUNT 4.0 1.5-6.6 10*3/uL LYMPHOCYTES ABSOLUTE COUNT (10*3/UL) BY AUTOMATED COUNT 0.7 1.0-3.5 10*3/uL MONOCYTES ABSOLUTE COUNT (10*3/UL) BY AUTOMATED COUNT 0.7 0.0-0.9 10*3/uL EOSINOPHILS ABSOLUTE COUNT (10*3/UL) BY AUTOMATED COUNT 0.2 0.0-0.4 10*3/uL BASOPHILS ABSOLUTE COUNT (10*3/UL) BY AUTOMATED COUNT 0.0 0.0-0.2 10*3/uL CELLAVISION DIFFERENTIAL TYPE AUTOMATED DIFFERENTIAL PERFORMED AT [address] [place] [address] COMPREHENSIVE METABOLIC PANE L Reviewed date:02/14/2025 04:12:33 PM Interpretation: Performing Lab: Notes/Report: SODIUM 135 134-146 mmol/L POTASSIUM 4.0 3.5-5.0 mmol/L CHLORIDE 104 98-109 mmol/L CARBON DIOXIDE 24 22-32 mmol/L ANION GAP 7 5-15 mmol/L BLOOD UREA NITROGEN 47 5-27 mg/dL CREATININE 2.01 0.70-1.20 mg/dL METHOD TRACE ABLE TO IDMS STANDARD GLUCOSE 97 65-99 mg/dL CALCIUM 8.4 8.5-10.5 mg/dL TOTAL PROTEIN 6.9 6.0-8.0 g/dL ALBUMIN 3.3 3.2-5.3 g/dL ALKALINE PHOSPHATASE 122 39-130 U/L AST 22 <=41 U/L ALT 11 <=40 U/L BILIRUBIN,TOTAL 0.9 0.3-1.2 mg/dL EGFR (CKD-EPI) NON-RACE DEPENDENT 33 >=60 ml/min/1.73sq.m eGFR not reported due to non-numeric value for Creatinine. Reported eGFR is based on the CKD-EPI 2020 equation that does not use a race coefficient. PERFORMED AT [address] [place] [address] Reason For Referral Diagnosis 1 Heart failure, unspe cified (I50.9) Referral Organization [facility] Referring Provider First Name Sesar Referring Provider Last Name Maggie [facility] Provider Specialty Cardiac Reha b Referral Priority Routine Diagnosis 1 Low back pain, unspe cified (M54.50) Diagnosis 2 Weakness (R53.1) Referral Organization [facility] Referring Provider First Name Sesar Referring Provider Last Name Maggie Referring Provider Speciality Family Med komalne Referred Provider Radha Total Reha b, Kirill Referred Provider Specialty Physical Med icine and Rehabilitation Referral Priority Routine Medications Medication SIG (Take, Route, Frequency, Duration) Notes Start Date End Date Status Levothyroxine Sodium 100 MCG 1 tablet in the morning on an empty stomach Orally Once a day for 30 days 01/13/2025 Active Hospital Bed - Use daily for DX [employer] D for 365 days 02/22/2025 Active Eliquis 2.5 MG 1 tablet Orally twic e daily 01/13/2025 Active Senna-S 8.6-50 MG 2 tablet as needed O rally Once a day PRN 01/13/2025 Active aMILoride HCl 5 MG 1 tablet with food O rally Once a day Active Antacid 500 MG 1 tablet Orally Once a day 01/13/2025 Active Mexiletine HCl 150 MG 1 capsule Orally T wice a day for 30 days 01/13/2025 Active Acetaminophen 325 MG 2 tablet as needed Orally every 6 hrs 01/13/2025 Active Metoprolol Succinate ER 25 MG 1/2 tablet Orally Once a day for 30 days Active Triamterene 50 MG 1 capsule Orally Onc e a day for 30 days 02/03/2025 Active Liothyronine Sodium 5 MCG 1 tablet on an empty stomach Orally Once a day for 90 days Active Triamcinolone Acetonide 0.1 % 1 application Externally Two times a Week 06/26/2024 Active Thiamine HCl 100 MG 1 tablet Orally Once a day Active Potassium Chloride ER 20 MEQ 1 capsule with food Orally Twice a day for 30 days 01/13/2025 Active Ondansetron HCl 4 MG 1 tablet Orally Onc e a day for 30 days PRN 01/13/2025 Active Bumetanide 2 MG 1 tablet Orally bid for 30 days 01/13/2025 Active Nitroglycerin 0.4 MG as directed Sublingual PRN Active Social History Tobacco Use: Social History Observation Description Date Details (start date - stop date) Former Smoker NA - 10/16/1987 Tobacco Use/Smoking Question Answer Notes Patient is a former smoker When did you stop smoking? 10/16/1987 How long has it been since you last smoked? > 10 years Alcohol Screen (Audit-C) Question Answer Notes Did you have a drink containing alcohol in the p ast year? No Points 0 Interpretation Negative AUDIT-C (Standard) Question Answer Notes Did you have a drink containing alcohol in the p ast year? 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 confirmed Problem 91315833 Non-ST elevation (NSTEMI) myocardial infarction (I21.4) Active confirmed Problem Ischemic cardiomyopathy (450792595) Ischemic cardiomyopathy (I25.5) Active confirmed Problem 952526546 Chronic systolic (congestive) heart failure (I50.22) Active confirmed Problem 31804271 Heart failure, unspecified (I50.9) Active confirmed Problem 413803581 Cardiomegaly (I51.7) Active confirmed Problem 80020629 Acute kidney failure, unspecified (N17.9) Active confirmed 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 Problem Shortness of breath (899975303) Shortness of breath (R06.02) Active confirmed Problem 417218539 Unspecified abnormal finding in specimens from other organs, systems and tissues (R89.9) Active confirmed Problem 189954230 Presence of automatic (implantable) cardiac defibrillator (Z95.810) Active confirmed Problem Chest pain (47560740) Chest pain (R07.9) Active confirmed Problem Atrial fibrillation (61183766) Atrial fibrillation (I48.91) Active confirmed Problem Congestive heart failure (95558590) CHF (congestive heart failure) (I50.9) Active confirmed Problem Chronic kidney disease (022219845) Chronic kidney disease (N18.9) Active confirmed Problem Coronary artery disease (88373942) CAD (coronary artery disease) (I25.10) Active confirmed Problem Heart failure (73127583) Heart failure (I50.9) Active confirmed Problem Depressed (63122109) Depressed (F32.9) Active confirmed Problem Acute non-ST segment elevation myocardial infarction (523008341) NSTEMI (non-ST elevated myocardial infarction) (I21.4) Active confirmed Problem Fluid overload (47680275) Fluid overload (E87.70) Active confirmed Problem Ventricular premature complex (disorder) (297371679) Ventricular ectopy (I49.3) Active confirmed Problem 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) (917808682202980) Systolic and diastolic CHF, acute on chronic (I50.43) Active confirmed Problem 190633152 Other ventricula r tachycardia (I47.29) Active confirmed Problem 50800266 Abdominal aortic aneurysm, without rupture, unspecified (I71.40) Active confirmed Problem V tach (I47.20) Active confirmed Vital Signs Heart Rate 62 /min 02/03/2025 Temperature 98.1 degrees Fahrenheit 07/06/2024 Oximetry 96 % 02/03/2025 Blood pressure diastolic 60 mm Hg 03/24/2025 Height 70 in 03/24/2025 Blood pressure systolic 100 mm Hg 03/24/2025 Weight 154 lbs 03/24/2025 BMI 22.09 kg/m2 03/24/2025 Encounters Encounter Location Date Provider Diagnosis [facility] [address] [place] [address] 03/29/2025 [facility] [address] [place] [address] 03/30/2025 [facility] [address] [place] [address] 04/06/2025 [facility] [address] [place] [address] 03/09/2025 [facility] [address] [place] [address] 03/10/2025 [facility] [address] [place] [address] 03/22/2025 [facility] Malignant neoplasm o f prostate C61 [facility] [address] [place] [address] 03/24/2025 [facility] [address] [place] [address] 03/24/2025 Sesar Herreray Fatigue R53.83 [facility] [address] [place] [address] 03/24/2025 Sesar Herreray [facility] [address] [place] [address] 02/18/2025 Sesar Serrano [facility] [address] [place] [address] 02/22/2025 Sesar Serrano [facility] [address] [place] [address] 03/04/2025 Sesar Serrano [facility] [address] [place] [address] 03/07/2025 Sesar Serrano [facility] [address] [place] [address] 03/08/2025 Sesar Serrano [facility] [address] [place] [address] 03/09/2025 Sesar Serrano [facility] [address] [place] [address] 01/25/2025 Sesar tati [facility] [address] [place] [address] 02/01/2025 Sesar Serrano Acute kidney failure , unspecified N17.9 [facility] [address] [place] [address] 02/02/2025 Sesar Serrano [facility] [address] [place] [address] 02/04/2025 Sesar Serrano Hyperkalemia E87.5 [facility] [address] [place] [address] 02/10/2025 Sesar tati [facility] [address] [place] [address] 02/15/2025 Sesar Serrano [facility] [address] [place] [address] 09/21/2024 Sesar Serrano [facility] [address] [place] [address] 09/27/2024 Sesar Serrano [facility] [address] [facility] [address] 11/16/2024 Sesar Serrano [facility] [address] [facility] [address] 11/22/2024 Sesar Serrano [facility] [address] [facility] [address] 01/18/2025 Sesar Serrano Hyperkalemia E87.5 [facility] [address] [facility] [address] 01/19/2025 Sesar Serrano [facility] [address] [facility] [address] 08/03/2024 Sesar Serrano [facility] [address] [facility] [address] 08/26/2024 Sesar Serrano Low back pain, unspecified M54.50 and Weakness R53.1 [facility] [address] [facility] [address] 08/28/2024 Sesar Serrano [facility] [address] [facility] [address] 08/28/2024 Sesar Serrano [facility] [address] [facility] [address] 09/10/2024 Sesar Serrano Urinary frequency R3 5.0 [facility] [address] [facility] [address] 09/15/2024 Sesar Serrano [facility] [address] [facility] [place] [address] 07/02/2024 Sesar Serrano [facility] [address] [facility] [address] 07/21/2024 Sesar Serrano [facility] [address] [facility] [address] 07/22/2024 Sesar Serrano [facility] [address] [facility] [address] 07/30/2024 FRANCISCA HERRERATati [facility] [address] [facility] [place] [address] 07/30/2024 Sesar tati [facility] [address] [facility] [place] [address] 08/03/2024 Sesar tati [facility] [address] [facility] [place] [address] 05/11/2024 Sesar tati [facility] [address] [facility] [place] [address] 06/11/2024 Sesar tati [facility] [address] [facility] [place] [address] 06/17/2024 Sesar tati [facility] [address] [facility] [place] [address] 06/17/2024 Sesar Serrano Heart failure, unspecified I50.9 [facility] [address] [facility] [place] [address] 06/24/2024 Sesar tati [facility] [address] [facility] [place] [address] 06/25/2024 Sesar tati [facility] [address] [facility] [place] [address] 04/20/2024 [facility] [address] [facility] [place] [address] 04/21/2024 Sesar tati [facility] [address] [facility] [place] [address] 05/04/2024 Sesar Serrano Hyperkalemia E87.5 ; Heart failure I50.9 ; Acute kidney failure N17.9 and Dehydration E86.0 [facility] [address] [facility] [place] [address] 05/11/2024 Sesar tati [facility] [address] [facility] [place] [address] 04/21/2024 Sesar Serrano 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 ; CHF (congestive heart failure) I50.9 ; Shortness of breath R06.02 ; Atrial fibrillation I48.91 and Cat scratch W55.03XA [facility] [address] [place] [address] 06/17/2024 Sesar Herreray Unspecified abnormal finding in specimens from other organs, systems and tissues R89.9 ; Non-ST elevation (NSTEMI) myocardial infarction I21.4 ; Cardiomegaly I51.7 and NSTEMI (non-ST elevated myocardial infarction) I21.4 [address] [place] [address] 07/06/2024 Sesar Hoy Depressed F32.9 and Fluid overload E87.[address] [address] 01/13/2025 Sesar Hoy Hyperkalemia E87.5 ; Heart failure I50.9 ; Non-ST elevation (NSTEMI) myocardial infarction I21.4 and Shortness of breath R06.[address] [address] 03/24/2025 Sesar Hoy Hyperkalemia E87.5 ; NSTEMI (non-ST elevated myocardial infarction) I21.4 and CHF (congestive heart failure) I50.[address] [address] 07/30/2024 Sesar Hoy Ventricular ectopy I49.[address] [address] 07/20/2024 Sesar Hoy Heart failure I50.9 and Cardiomegaly I51.[address] [address] 02/03/2025 Sesar Hoy Hyperkalemia E87.5 ; Heart failure I50.9 and Cardiomegaly I51.7 Assessments Encounter Date Diagnosis (ICD Code) Assessment Notes Treatment Notes Treatment Clinical Notes Section Notes 06/17/2024 Unspecified abnormal finding in specimens from other organs, systems and tissues (ICD-10 - R89.9) 06/17/2024 Non-ST elevation (NSTEMI) myocardial infarction (ICD-10 - I21.4) 04/21/2024 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) prefers to not take anything for depression 04/21/2024 CHF (congestive heart failure) (ICD-10 - I50.9) stil with some SANTILLAN - on xarelto - loks pae 07/06/2024 Depressed (ICD-10 - F32.9) 07/06/2024 Fluid overload (ICD-10 - E87.70) 07/20/2024 Heart failure (ICD-10 - I50.9) recommend ging to er or labs 07/20/2024 Cardiomegaly (ICD-10 - I51.7) 07/30/2024 Ventricular ectopy (ICD-10 - I49.3) 01/13/2025 Hyperkalemia (ICD-10 - E87.5) 01/13/2025 Heart failure (ICD-10 - I50.9) 05/04/2024 Hyperkalemia (ICD-10 - E87.5) 05/04/2024 Heart failure (ICD-10 - I50.9) 06/17/2024 Heart failure, unspecified (ICD-10 - I50.9) 08/26/2024 Low back pain, unspecified (ICD-10 - M54.50) 08/26/2024 Weakness (ICD-10 - R53.1) 09/10/2024 Urinary frequency (ICD-10 - R35.0) 01/18/2025 Hyperkalemia (ICD-10 - E87.5) 02/01/2025 Acute kidney failure, unspecified (ICD-10 - N17.9) 02/04/2025 Hyperkalemia (ICD-10 - E87.5) 03/22/2025 Malignant neoplasm of prostate (ICD-10 - C61) 03/24/2025 Fatigue (ICD-10 - R53.83) 02/03/2025 Hyperkalemia (ICD-10 - E87.5) 02/03/2025 Heart failure (ICD-10 - I50.9) 03/24/2025 Hyperkalemia (ICD-10 - E87.5) 03/24/2025 NSTEMI (non-ST elevated myocardial infarction) (ICD-10 - I21.4) 03/24/2025 CHF (congestive heart failure) (ICD-10 - I50.9) 02/03/2025 Cardiomegaly (ICD-10 - I51.7) 05/04/2024 Acute kidney failure (ICD-10 - N17.9) 01/13/2025 Non-ST elevation (NSTEMI) myocardial infarction (ICD-10 - I21.4) 04/21/2024 Shortness of breath (ICD-10 - R06.02) persisting - 06/17/2024 Cardiomegaly (ICD-10 - I51.7) 06/17/2024 NSTEMI (non-ST elevated myocardial infarction) (ICD-10 - I21.4) 04/21/2024 Atrial fibrillation (ICD-10 - I48.91) had clip done - that part is working well on echo 01/13/2025 Shortness of breath (ICD-10 - R06.02) 05/04/2024 Dehydration (ICD-10 - E86.0) 04/21/2024 Cat scratch (ICD-10 - W55.03XA) Plan Of Treatment Pending Test Test Name Order Date CMP (COMPLETE METABOLIC PANEL) 3 CMP (COMPLETE METABOLIC PANEL) 4 CMP (COMPLETE METABOLIC PANEL) 3 CMP (COMPLETE METABOLIC PANEL) 4 UA (URINALYSIS, COMPLETE) 09/10/2024 HEMOGLOBIN A1C (GLYCO) 05/31/2023 IRON, TOTAL 02/12/2024 CBC WITH DIFF 05/31/2023 CBC WITH DIFF 02/12/2024 VITAMIN D, 25 LEVEL (TOTAL) 02/12/2024 XR Chest PA and Lateral (Routine CXR) * 11/01/2023 XR Chest PA and Lateral (Routine CXR) * 02/12/2024 BMP w/GFR 06/07/2023 FREE T4 11/29/2023 Urinalysis Microscopic 03/24/2025 Urine Culture 09/10/2024 PFT complete with Albuterol 2.5mg via ne bulizer once 11/01/2023 BMP - Basic Metabolic Panel 02/01/2025 CBC W/AUTO DIFF 05/04/2024 CBC W/AUTO DIFF 08/29/2023 High Sensitivity Troponin 10/03/2023 High Sensitivity Troponin 07/20/2024 High Sensitivity Troponin 07/30/2024 BNP 01/13/2025 BNP 02/12/2024 BNP 08/29/2023 BNP 05/04/2024 BNP 03/24/2025 CBC AUTO DIFF 03/24/2025 COPPER, SERUM or PLASMA 08/29/2023 CULTURE URINE 03/24/2025 FERRITIN 05/04/2024 FREE T3 01/13/2025 FREE T4 01/13/2025 IRON 05/04/2024 IRON 03/24/2025 IRON 03/24/2025 LIPID PROFILE 01/13/2025 MAGNESIUM 03/24/2025 MAGNESIUM 01/13/2025 PROF 14(COMP METB) 01/13/2025 PROF CHEM 8 (BAS METB) 03/24/2025 PROF CHEM 8 (BAS METB) 11/01/2023 TESTOSTERONE, FREE,DIRECT, TOTAL 024 THYROID PROFILE WITH TSH 01/13/2025 THYROID PROFILE WITH TSH 07/30/2024 THYROID PROFILE WITH TSH 07/20/2024 URIC ACID SERUM 01/13/2025 URINE MICROSCOPIC ONLY 09/10/2024 VIT B12 AND FOLATE 07/30/2024 VIT B12 AND FOLATE 08/15/2023 VITAMIN B1 (THIAMINE) 07/30/2024 VITAMIN D 25 [place] 01/13/2025 US ABD 02/12/2024 XR LSPINE 2_3 VIEWS 08/15/2023 THYROID PANEL (T4/TSH/FREE T3) 3 THYROID PANEL (T4/TSH/FREE T3) 4 THYROID PANEL (T4/TSH/FREE T3) 4 THYROID PANEL (T4/TSH/FREE T3) 5 THYROID PANEL (T4/TSH/FREE T3) 5 PSA Total+% Free 03/22/2025 Insurance Providers Payer Name Payer Address Payer Phone Subscriber Number Group Number Insured Name Patient Relationship to Insured Coverage Start Date Coverage End Date [place]ARE [place] [address] [phone] [id number] José Miguel Antonio Self - patient is the insured MMO MEDICARE [employer] T [address] [place] [address] [id number] José Miguel Antonio Self - patient is the insured 9 Medical (General) History Medical History History ICD Code Carotid stenosis I65.29 

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
--- OUTSIDE RECORDS SUMMARY | 2025-04-08 10:53 | XMS_ITS | Encounter Summary ---
Author Organization [facility] Address [address] [place] [address] Care Team Providers Care Field Clinical Engineer Name Role Phone Samm Serrano MD Primary Care Provider +-4 Tom Gonzalez Unavailable [phone] Andreas Pierre MD Unavailable Virgil Carrillo MD Unavailable Jethro Mendoza MD Unavailable Isaías Kinney MD Unavailable [phone] Source Comments In the event this [...] 11/28/2022 Patient Msg Vascular Surg Dept [address] [place] [address] John Jefferson MD [address] [address] Appointment Cancellation Request Social History Tobacco Use [...] N ot on file 10/01/2022 Data from: https://www.neighborhoodatlas.[facility].edu/. Last address used for calculation [address] [...] 06/30/2025 10:00 AM EDT Office Visit Cardiology [address] [place] [address] Isaías Kinney MD [address] [place] [address] DX: Chronic diastolic heart failure 09/20/2025 8:15 AM EST Procedure Cardiology [address] [place] [address] Dx. Atherosclerotic heart disease of [place] coronary artery with other forms of angina pectoris 09/20/2025 9:00 AM EST Appointment Cardiology [address] [place] [address] Dx. Atherosclerotic heart disease of [place] coronary artery with other forms of angina pectoris 09/20/2025 9:45 AM EST Office Visit Cardiology [address] [place] [address] Nj Wei MD [address] [place] [address] Dx. Atherosclerotic heart disease of [place] coronary artery with other forms of angina pectoris documented as of this encounter Visit Diagnoses Not on filedocumented in this encounter Care Teams Field Clinical Engineer Relationship Specialty Start Date End Date Samm Serrano MD PCP - General Family Medicine 9/14/12 Tom Gonzalez [address] [place] [address] Primary Staff Physician Cardiology 12/02/18 Andreas Pierre MD [address] [place] [address] Primary Staff Physician Cardiology 04/26/23 Virgil Carrillo MD [address] [place] [address] Primary Staff Physician Cardiology 10/29/23 Jethro Mendoza MD [address] [place] [address] Primary Staff Physician Cardiology 12/26/23 Isaías Kinney MD [address] [place] [address] Primary Staff Physician Cardiology 01/10/24 documented as of this encounter
--- OUTSIDE RECORDS SUMMARY | 2025-04-08 10:53 | XMS_ITS | Encounter Summary ---
Author Organization [facility] Address [address] [place] [address] Care Team Providers Care Lieutenant Fire Fighter Name Role Phone Samm Serrano MD Primary Care Provider +-4 Tom Gonzalez Unavailable [phone] Andreas Pierre MD Unavailable Virgil Carrillo MD Unavailable Jethro Mendoza MD Unavailable Isaías Kinney MD Unavailable [phone] Source Comments In the event this information is protected by the Federal Confidentiality of Alcohol and Drug AbusePatient Records regulations: The Federal rules restrict any use of the information to criminally investigate or prosecute any alcohol or drug abuse patient.[facility] Encounter Details Date Type Department Care Team (Late st Contact Info) Description 07/16/2022 Get Medical Advice Cardiology [address] [place], [place] [phone] Andreas Pierre MD [address] [place] [address] medication question Social History Tobacco Use Types [...] N ot on file 04/26/2022 Data from: https://www.neighborhoodatlas.medicine.[facility]/. Last address used for calculation [address] [...] 10:00 AM EDT Office Visit Cardiology [address] [place] [address] Isaías Kinney MD [address] [place] [address] DX: Chronic diastolic heart failure 09/20/2025 8:15 AM EST Procedure Cardiology [address] [place] [address] Dx. Atherosclerotic heart disease of [place] coronary artery with other forms of angina pectoris 09/20/2025 9:00 AM EST Appointment Cardiology [address] [place] [address] Dx. Atherosclerotic heart disease of [place] coronary artery with other forms of angina pectoris 09/20/2025 9:45 AM EST Office Visit Cardiology [address] [place] [address] Nj Wei MD [address] [place] [address] Dx. Atherosclerotic heart disease of [place] coronary artery with other forms of angina pectoris documented as of this encounter Visit Diagnoses Not on filedocumented in this encounter Care Teams Lieutenant Fire Fighter Relationship Specialty Start Date End Date Samm Serrano MD PCP - General Family Medicine 05/30/12 Tom Gonzalez [place] [place] [address] Primary Staff Physician Cardiology 12/02/18 Andreas Pierre MD [address] [place] [address] Primary Staff Physician Cardiology 04/26/23 Virgil Carrillo MD [address] [place] [address] Primary Staff Physician Cardiology 10/29/23 Jethro Mendoza MD [address] [place] [address] Primary Staff Physician Cardiology 12/26/23 Isaías Kinney MD [address] [place] [address] Primary Staff Physician Cardiology 01/10/24 documented as of this encounter
--- OUTSIDE RECORDS SUMMARY | 2025-04-08 10:53 | XMS_ITS | Encounter Summary ---
Author Organization [facility] Address [address] [place] [address] Care Team Providers Care Pyrotechnic Assembler Name Role Phone Samm Serrano MD Primary Care Provider +-4 Tom Gonzalez Unavailable [phone] Andreas Pierre MD Unavailable Virgil Carrillo MD Unavailable Jethro Mendoza MD Unavailable Isaías Kinney MD Unavailable [phone] Source Comments In the event this information is protected by the Federal Confidentiality of Alcohol and Drug AbusePatient Records regulations: The Federal rules restrict any use of the information to criminally investigate or prosecute any alcohol or drug abuse patient.[facility] Encounter Details Date Type Department Care Team (Late st Contact Info) Description 08/23/2022 [place] [address] Provider, [facility] Social History Tobacco [...] N ot on file 04/26/2022 Data from: https://www.neighborhoodatlas.medicine.[facility].edu/. Last address used for calculation [address] [...] 06/30/2025 10:00 AM EDT Office Visit Cardiology [address] [place] [address] Isaías Kinney MD [address] [place] [address] DX: Chronic diastolic heart failure 09/20/2025 8:15 AM EST Procedure Cardiology [address] [place] [address] Dx. Atherosclerotic heart disease of [place] coronary artery with other forms of angina pectoris 09/20/2025 9:00 AM EST Appointment Cardiology [address] [place] [address] Dx. Atherosclerotic heart disease of [place] coronary artery with other forms of angina pectoris 09/20/2025 9:45 AM EST Office Visit Cardiology [address] [place] [address] Nj Wei MD [address] [place] [address] Dx. Atherosclerotic heart disease of [place] coronary artery with other forms of angina pectoris documented as of this encounter Visit Diagnoses Not on filedocumented in this encounter Care Teams Pyrotechnic Assembler Relationship Specialty Start Date End Date Samm Serrano MD PCP - General Family Medicine 05/30/12 Tom Gonzalez [address] [place] [address] Primary Staff Physician Cardiology 12/02/18 Andreas Pierre MD [address] [place] [id number] Primary Staff Physician Cardiology 04/26/23 Virgil Carrillo MD [address] [place] [address] Primary Staff Physician Cardiology 10/29/23 Jethro Mendoza MD [address] [place] [address] Primary Staff Physician Cardiology 12/26/23 Isaías Kinney MD [address] [place] [address] Primary Staff Physician Cardiology 01/10/24 documented as of this encounter
--- OUTSIDE RECORDS SUMMARY | 2025-04-08 10:53 | XMS_ITS | Encounter Summary ---
Author Organization [facility] Address [address] [place] [address] Care Team Providers Care Phlebotomy Technologist Name Role Phone Samm Serrano MD Primary Care Provider [phone] Inocencio Falk DO Unavailable [phone] Tom Gonzalez Unavailable [phone] Andreas Pierre MD Unavailable Virgil Carrillo MD Unavailable Jethro Mendoza MD Unavailable Isaías Kinney MD Unavailable [phone] Source Comments In the event this information is protected by the Federal Confidentiality of Alcohol and Drug AbusePatient Records regulations: The Federal rules restrict any use of the information to criminally investigate or prosecute any alcohol or drug abuse patient.[facility] Encounter Details Date Type Department Care Team (Late st Contact Info) Description 11/21/2012 Patient Msg Medical Records [address] [place] [address] Provider, Ccf Appointment Cancellation Request Social History [...] 06/30/2025 10:00 AM EDT Office Visit Cardiology [address] [place], [place] [phone] Isaías Kinney MD [address] [place] [phone] DX: Chronic diastolic heart failure 09/20/2025 8:15 AM EST Procedure Cardiology [address] [place] [address] Dx. Atherosclerotic heart disease of [place] coronary artery with other forms of angina pectoris 09/20/2025 9:00 AM EST Appointment Cardiology [address] [place], [place] [phone] Dx. Atherosclerotic heart disease of [place] coronary artery with other forms of angina pectoris 09/20/2025 9:45 AM EST Office Visit Cardiology [address] [phone] Nj Wei MD [address] [place] [address] Dx. Atherosclerotic heart disease of [place] coronary artery with other forms of angina pectoris documented as of this encounter Visit Diagnoses Not on filedocumented in this encounter Care Teams Phlebotomy Technologist Relationship Specialty Start Date End Date Samm Serrano MD PCP - General Family Medicine 05/30/12 Inocencio Falk DO [address] [facility] [place] [address] Primary Staff Physician Cardiology 12/15/14 Carols Tommarvin Gtz [address] [place] [address] Primary Staff Physician Cardiology 12/02/18 Andreas Pierre MD [address] [place] [address] Primary Staff Physician Cardiology 04/26/23 Virgil Carrillo MD [address] [place] [phone] Primary Staff Physician Cardiology 10/29/23 Jethro Mendoza MD [address] [facility] [place] [address] Primary Staff Physician Cardiology 12/26/23 Isaías Kinney MD [address] [place] [address] Primary Staff Physician Cardiology 01/10/24 documented as of this encounter
--- OUTSIDE RECORDS SUMMARY | 2025-04-08 10:53 | XMS_ITS | Encounter Summary ---
Author Organization [facility] Address [address] [place] [address] Care Team Providers Care Automobile Appraiser Name Role Phone Samm Serrano MD Primary Care Provider +-4 Tom Gonzalez Unavailable [phone] Andreas Pierre MD Unavailable Virgil Carrillo MD Unavailable Jethro Mendoza MD Unavailable Isaías Kinney MD Unavailable [phone] Source Comments In the event this information is protected by the Federal Confidentiality of Alcohol and Drug AbusePatient Records regulations: The Federal rules restrict any use of the information to criminally investigate or prosecute any alcohol or drug abuse patient.[facility] Encounter Details Date Type Department Care Team (Late st Contact Info) Description 11/28/2022 Patient Msg Vascular Surg Dept [address] [place] [address] Tiarra Lopez APRN.AUTOMATION AND CONTROL ENGINEER [address] [place] [address] Appointment Cancellation Request Social History Tobacco Use [...] N ot on file 10/01/2022 Data from: https://www.neighborhoodatlas.medicine.[facility].edu/. Last address used for calculation [address] [...] 06/30/2025 10:00 AM EDT Office Visit Cardiology [address] [place] [address] Iasías Kinney MD [address] [place] [phone] DX: Chronic diastolic heart failure 09/20/2025 8:15 AM EST Procedure Cardiology [address] [place] [address] Dx. Atherosclerotic heart disease of [place] coronary artery with other forms of angina pectoris 09/20/2025 9:00 AM EST Appointment Cardiology [address] [place] [address] Dx. Atherosclerotic heart disease of [place] coronary artery with other forms of angina pectoris 09/20/2025 9:45 AM EST Office Visit Cardiology [address] [place] [address] Nj Wei MD [address] [place] [address] Dx. Atherosclerotic heart disease of [place] coronary artery with other forms of angina pectoris documented as of this encounter Visit Diagnoses Not on filedocumented in this encounter Care Teams Automobile Appraiser Relationship Specialty Start Date End Date Samm Serrano MD PCP - General Family Medicine 05/30/12 Tom Gonzalez [address] [place] [address] Primary Staff Physician Cardiology 12/02/18 Andreas Pierre MD [address] [place] [address] Primary Staff Physician Cardiology 04/26/23 Virgil Carrillo MD [address] [place] [address] Primary Staff Physician Cardiology 10/29/23 Jethro Mendoza MD [address] [place] [address] Primary Staff Physician Cardiology 12/26/23 Isaías Kinney MD [address] [place] [address] Primary Staff Physician Cardiology 01/10/24 documented as of this encounter
--- OUTSIDE RECORDS SUMMARY | 2025-04-08 10:53 | XMS_ITS | Encounter Summary ---
Author Organization [facility] Address [address] [place] [address] Care Team Providers Care Utility Worker Roller Shop Name Role Phone Samm Serrano MD Primary Care Provider +-4 Tom Gonzalez Unavailable [phone] Andreas Pierre MD Unavailable Virgil Carrillo MD Unavailable Jethro Mendoza MD Unavailable Isaías Kinney MD Unavailable [phone] Source Comments In the event this information is protected by the Federal Confidentiality of Alcohol and Drug AbusePatient Records regulations: The Federal rules restrict any use of the information to criminally investigate or prosecute any alcohol or drug abuse patient.[facility] Encounter Details Date Type Department Care Team (Late st Contact Info) Description 11/28/2022 Patient Msg Cardiology [address] [place], [place] [phone] Provider, Ccf Appointment Cancellation Request Social History [...] N ot on file 10/01/2022 Data from: https://www.neighborhoodatlas.medicine.[facility]/. Last address used for calculation [address] [...] of Assessment Author No 03/25/2019 11:00 AM Jai Carlson)ARIES * Are you blind or do [...] 06/30/2025 10:00 AM EDT Office Visit Cardiology [address] [place] [address] Isaías Kinney MD [address] [place] [address] DX: Chronic diastolic heart failure 09/20/2025 8:15 AM EST Procedure Cardiology [address] [place] [address] Dx. Atherosclerotic heart disease of [place] coronary artery with other forms of angina pectoris 09/20/2025 9:00 AM EST Appointment Cardiology [address] [place] [address] Dx. Atherosclerotic heart disease of [place] coronary artery with other forms of angina pectoris 09/20/2025 9:45 AM EST Office Visit Cardiology [address] [place] [address] Nj Wei MD [address] [place] [address] Dx. Atherosclerotic heart disease of [place] coronary artery with other forms of angina pectoris documented as of this encounter Visit Diagnoses Not on filedocumented in this encounter Care Teams Utility Worker Roller Shop Relationship Specialty Start Date End Date Samm Serrano MD PCP - General Family Medicine 05/30/12 Tom Gonzalez [address] [place] [address] Primary Staff Physician Cardiology 12/02/18 Andreas Pierre MD [address] [place] [address] Primary Staff Physician Cardiology 04/26/23 Virgil Carrillo MD [address] [place] [address] Primary Staff Physician Cardiology 10/29/23 Jethro Mendoza MD [address] [place] [address] Primary Staff Physician Cardiology 12/26/23 Isaías Kinney MD [address] [place] [address] Primary Staff Physician Cardiology 01/10/24 documented as of this encounter
--- OUTSIDE RECORDS SUMMARY | 2025-04-08 10:53 | XMS_ITS | Encounter Summary ---
Author Organization [facility] Address [address] [place] [address] Care Team Providers Care Supply Officer Name Role Phone Samm Serrano MD Primary Care Provider +-4 Tom Gonzalez Unavailable [phone] Andreas Pierre MD Unavailable Virgil Carrillo MD Unavailable Jethro Mendoza MD Unavailable Isaías Kinney MD Unavailable [phone] Source Comments In the event this information is protected by the Federal Confidentiality of Alcohol and Drug AbusePatient Records regulations: The Federal rules restrict any use of the information to criminally investigate or prosecute any alcohol or drug abuse patient.[facility] Encounter Details Date Type Department Care Team (Late st Contact Info) Description 09/01/2024 Patient Msg Cardiology [address] [place], [place] [phone] Isaías Kinney MD [address] [place] [address] Spironolactone Social History Tobacco Use Types Packs/Day Years Used Date Smoking Tobacco: Former Cigarettes 1 10 0 04/28/1972 - 04/28/1982 Pipe Passive Smoke Exposure: Never Smokeless Tobacco: Never Alcohol Use Standard Drinks/Week Comments Not Currently 0 (1 standard drink = 0.6 oz pur e alcohol) rarely [facility] Utilities Answer Date Recorded In the past 12 months has th e electric, gas, oil, or water [employer] threatened to shut off services in your [...] place to sleep or slept in a care home (including now)? No 03/02/2024 Housing Stability [...] any time in the past 12 m [facility], were you homeless or living in a care home (including now)? Yes 07/22/2024 Area Deprivation Index Answer Date Rich rded National Score (1-100), lower number is lower ri sk 52 02/05/2024 State Score (1-10), lower number is lower risk 3 02/05/2024 Data from: https://www.neighborhoodatlas.medicine.[facility].edu/. Last address used for calculation [address] [place] [address] [address] 02/05/2024 Sex and Gender Information [...] No 05/16/2024 2:47 PM EDT Campos Mina, ARIES documented in this encounter Plan of Treatment Upcoming Encounters Date Type Department Care Team (Latest Contact Info) Description 06/30/2025 10:00 AM EDT Office Visit Cardiology [address] [place] [address] Isaías Kinney MD [address] [place], [place] [phone] DX: Chronic diastolic heart failure 09/20/2025 8:15 AM EST Procedure Cardiology [address] [place] [address] Dx. Atherosclerotic heart disease of [place] coronary artery with other forms of angina pectoris 09/20/2025 9:00 AM EST Appointment Cardiology [address] [place] [address] Dx. Atherosclerotic heart disease of [place] coronary artery with other forms of angina pectoris 09/20/2025 9:45 AM EST Office Visit Cardiology [address] [place] [address] Nj Wei MD [address] [place], [place] [phone] Dx. Atherosclerotic heart disease of [place] coronary artery with other forms of angina pectoris documented as of this encounter Goals Goal Patient Goal Type Associated Problems Recent Progress Patient-Stated? Author Blood Pressure < 130/80 Blood Pressure 134/63( 025 3:00 PM EDT) No Lidia Lo, ARIES documented as of this encounter Visit Diagnoses Not on filedocumented in this encounter Care Teams Supply Officer Relationship Specialty Start Date End Date Samm Serrano MD PCP - General Family Medicine 05/30/12 Tom Gonzalez [address] [place] [address] Primary Staff Physician Cardiology 12/02/18 Andreas Pierre MD [address] [place] [phone] Primary Staff Physician Cardiology 04/26/23 Virgil Carrillo MD [address] [place] [phone] Primary Staff Physician Cardiology 10/29/23 Jethro Mendoza MD [address] [place] [address] Primary Staff Physician Cardiology 12/26/23 Isaías Kinney MD [address] [place] [address] Primary Staff Physician Cardiology 01/10/24 documented as of this encounter
--- OUTSIDE RECORDS SUMMARY | 2025-04-08 10:53 | XMS_ITS | Encounter Summary ---
Author Organization [facility] Address [address] [place] [address] Care Team Providers Care Dance Master Name Role Phone Samm Serrano MD Primary Care Provider +-4 Tom Gonzalez Unavailable [phone] Andreas Pierre MD Unavailable Virgil Carrillo MD Unavailable Jethro Mendoza MD Unavailable Isaías Kinney MD Unavailable [phone] Source Comments In the event this information is protected by the Federal Confidentiality of Alcohol and Drug AbusePatient Records regulations: The Federal rules restrict any use of the information to criminally investigate or prosecute any alcohol or drug abuse patient.[facility] Encounter Details Date Type Department Care Team (Late st Contact Info) Description 11/28/2022 Patient Msg Vascular Surg Dept [address] [place] [address] Tiarra Lopez APRN.MULTIPLE SCLEROSIS NURSE [address] [place] [address] Appointment Cancellation Request Social History Tobacco Use [...] N ot on file 10/01/2022 Data from: https://www.neighborhoodatlas.medicine.[facility].edu/. Last address used for calculation [...] 06/30/2025 10:00 AM EDT Office Visit Cardiology [address] [place] [address] Isaías Kinney MD [address] [place] [phone] DX: Chronic diastolic heart failure 09/20/2025 8:15 AM EST Procedure Cardiology [address] [place] [address] Dx. Atherosclerotic heart disease of [place] coronary artery with other forms of angina pectoris 09/20/2025 9:00 AM EST Appointment Cardiology [address] [place] [address] Dx. Atherosclerotic heart disease of [place] coronary artery with other forms of angina pectoris 09/20/2025 9:45 AM EST Office Visit Cardiology [address] [place] [address] Nj Wei MD [address] [place] [address] Dx. Atherosclerotic heart disease of [place] coronary artery with other forms of angina pectoris documented as of this encounter Visit Diagnoses Not on filedocumented in this encounter Care Teams Dance Master Relationship Specialty Start Date End Date Samm Serrano MD PCP - General Family Medicine 05/30/12 Tom Gonzalez [address] [place] [address] Primary Staff Physician Cardiology 12/02/18 Andreas Pierre MD [address] [place] [address] Primary Staff Physician Cardiology 04/26/23 Virgil Carrillo MD [address] [place] [address] Primary Staff Physician Cardiology 10/29/23 Jethro Mendoza MD [address] [place] [address] Primary Staff Physician Cardiology 12/26/23 Isaías Kinney MD [address] [place] [address] Primary Staff Physician Cardiology 01/10/24 documented as of this encounter
--- OUTSIDE RECORDS SUMMARY | 2025-04-08 10:53 | XMS_ITS | Encounter Summary ---
Author Organization [facility] Address [address] [place] [address] Care Team Providers Care Electronics Hardware Design Engineer Name Role Phone Samm Serrano MD Primary Care Provider +-4 Tom Gonzalez Unavailable [phone] Andreas Pierre MD Unavailable Virgil Carrillo MD Unavailable Jethro Mendoza MD Unavailable Isaías Kinney MD Unavailable [phone] Source Comments In the event this information is protected by the Federal Confidentiality of Alcohol and Drug AbusePatient Records regulations: The Federal rules restrict any use of the information to criminally investigate or prosecute any alcohol or drug abuse patient.[facility] Encounter Details Date Type Department Care Team (Late st Contact Info) Description 11/28/2022 Patient Msg Cardiology [address] [place], [place] [phone] Provider, Ccf Appointment Cancellation Request Social History [...] 10/01/2022 Data from: https://www.neighborhoodatlas.medicine.[facility]/. Last address used for calculation [address] [...] 06/30/2025 10:00 AM EDT Office Visit Cardiology [address] [place] [address] Isaías Kinney MD [address] [place] [address] DX: Chronic diastolic heart failure 09/20/2025 8:15 AM EST Procedure Cardiology [address] [place] [address] Dx. Atherosclerotic heart disease of [place] coronary artery with other forms of angina pectoris 09/20/2025 9:00 AM EST Appointment Cardiology [address] [place] [address] Dx. Atherosclerotic heart disease of [place] coronary artery with other forms of angina pectoris 09/20/2025 9:45 AM EST Office Visit Cardiology [address] [place] [address] Nj Wei MD [address] [place] [address] Dx. Atherosclerotic heart disease of [place] coronary artery with other forms of angina pectoris documented as of this encounter Visit Diagnoses Not on filedocumented in this encounter Care Teams Electronics Hardware Design Engineer Relationship Specialty Start Date End Date Samm Serrano MD PCP - General Family Medicine 05/30/12 Tom Gonzalez [address] [place] [address] Primary Staff Physician Cardiology 12/02/18 Andreas Pierre MD [address] [place] [address] Primary Staff Physician Cardiology 04/26/23 Virgil Carrillo MD [address] [place] [address] Primary Staff Physician Cardiology 10/29/23 Jethro Mendoza MD [address] [place] [address] Primary Staff Physician Cardiology 12/26/23 Isaías Kinney MD [address] [place] [address] Primary Staff Physician Cardiology 01/10/24 documented as of this encounter
--- OUTSIDE RECORDS SUMMARY | 2025-04-08 10:53 | XMS_ITS | Encounter Summary ---
Author Organization [facility] Address [address] [place] [address] Care Team Providers Care Microbiology Technologist Name Role Phone Samm Serrano MD Primary Care Provider +-4 Tom Gonzalez Unavailable [phone] Andreas Pierre MD Unavailable Virgil Carrillo MD Unavailable Jethro Mendoza MD Unavailable Isaías Kinney MD Unavailable [phone] Source Comments In the event this information is protected by the Federal Confidentiality of Alcohol and Drug AbusePatient Records regulations: The Federal rules restrict any use of the information to criminally investigate or prosecute any alcohol or drug abuse patient.[facility] Encounter Details Date Type Department Care Team (Late st Contact Info) Description 11/29/2022 Patient Msg Cardiology [address] [place] [address] Provider, Ccf Appointment Cancellation Request Social History [...] N ot on file 10/01/2022 Data from: https://www.neighborhoodatlas.medicine.[facility]/. Last address used for calculation [address] [...] 06/30/2025 10:00 AM EDT Office Visit Cardiology [address] [place] [address] Isaías Kinney MD [address] [place] [address] DX: Chronic diastolic heart failure 09/20/2025 8:15 AM EST Procedure Cardiology [address] [place] [address] Dx. Atherosclerotic heart disease of [place] coronary artery with other forms of angina pectoris 09/20/2025 9:00 AM EST Appointment Cardiology [address] [place] [address] Dx. Atherosclerotic heart disease of [place] coronary artery with other forms of angina pectoris 09/20/2025 9:45 AM EST Office Visit Cardiology [address] [place] [address] Nj Wei MD [address] [place] [address] Dx. Atherosclerotic heart disease of [place] coronary artery with other forms of angina pectoris documented as of this encounter Visit Diagnoses Not on filedocumented in this encounter Care Teams Microbiology Technologist Relationship Specialty Start Date End Date Samm Serrano MD PCP - General Family Medicine 05/30/12 Tom Gonzalez [address] [place] [address] Primary Staff Physician Cardiology 12/02/18 Andreas Pierre MD [address] [place] [address] Primary Staff Physician Cardiology 04/26/23 Virgil Carrillo MD [address] [place] [address] Primary Staff Physician Cardiology 10/29/23 Jethro Mendoza MD [address] [place] [address] Primary Staff Physician Cardiology 12/26/23 Isaías Kinney MD [address] [place] [address] Primary Staff Physician Cardiology 01/10/24 documented as of this encounter
--- OUTSIDE RECORDS SUMMARY | 2025-04-08 10:53 | XMS_ITS | Encounter Summary ---
Author Organization [facility] Address [address] [place] [address] Care Team Providers Care Assisted Living Executive Director Name Role Phone Samm Serrano MD Primary Care Provider +-4 Tom Gonzalez Unavailable [phone] Andreas Pierre MD Unavailable Virgil Carrillo MD Unavailable Jethro Mendoza MD Unavailable Isaías Kinney MD Unavailable [phone] Source Comments In the event this information is protected by the Federal Confidentiality of Alcohol and Drug AbusePatient Records regulations: The Federal rules restrict any use of the information to criminally investigate or prosecute any alcohol or drug abuse patient.[facility] Encounter Details Date Type Department Care Team (Late st Contact Info) Description 11/28/2022 Patient Msg Cardiology [address] [place], [place] [phone] Provider, Ccf Appointment Cancellation Request Social History [...] N ot on file 10/01/2022 Data from: https://www.neighborhoodatlas.medicine.[facility]/. Last address used for calculation [address] [...] 06/30/2025 10:00 AM EDT Office Visit Cardiology [address] [place] [address] Isaías Kinney MD [address] [place] [address] DX: Chronic diastolic heart failure 09/20/2025 8:15 AM EST Procedure Cardiology [address] [place] [address] Dx. Atherosclerotic heart disease of [place] coronary artery with other forms of angina pectoris 09/20/2025 9:00 AM EST Appointment Cardiology [address] [place] [address] Dx. Atherosclerotic heart disease of [place] coronary artery with other forms of angina pectoris 09/20/2025 9:45 AM EST Office Visit Cardiology [address] [place] [address] Nj Wei MD [address] [place] [address] Dx. Atherosclerotic heart disease of [place] coronary artery with other forms of angina pectoris documented as of this encounter Visit Diagnoses Not on filedocumented in this encounter Care Teams Assisted Living Executive Director Relationship Specialty Start Date End Date Samm Serrano MD PCP - General Family Medicine 05/30/12 Tom Gonzalez [address] [place] [address] Primary Staff Physician Cardiology 12/02/18 Andreas Pierre MD [address] [place] [address] Primary Staff Physician Cardiology 04/26/23 Virgil Carrillo MD [address] [place] [address] Primary Staff Physician Cardiology 10/29/23 Jethro Mendoza MD [address] [place] [address] Primary Staff Physician Cardiology 12/26/23 Isaías Kinney MD [address] [place] [address] Primary Staff Physician Cardiology 01/10/24 documented as of this encounter
--- OUTSIDE RECORDS SUMMARY | 2025-04-08 10:53 | XMS_ITS | Encounter Summary ---
Author Organization [facility] Address [address] [place] [address] Care Team Providers Care Machine Clothing Worker Name Role Phone Samm Serrano MD Primary Care Provider +-4 Tom Goznalez Unavailable [phone] Andreas Pierre MD Unavailable Virgil Carrillo MD Unavailable Jethro Mendoza MD Unavailable Isaías Kinney MD Unavailable [phone] Source Comments In the event this information is protected by the Federal Confidentiality of Alcohol and Drug AbusePatient Records regulations: The Federal rules restrict any use of the information to criminally investigate or prosecute any alcohol or drug abuse patient.[facility] Encounter Details Date Type Department Care Team (Late st Contact Info) Description 06/13/2022 Patient Msg Cardiology [address] [place] [address] Andreas Pierre MD [address] [place] [address] Lab results Social History Tobacco Use Types [...] N ot on file 04/26/2022 Data from: https://www.neighborhoodatlas.[facility]/. Last address used for calculation [address] [...] 10:00 AM EDT Office Visit Cardiology [address] [phone] Isaías Kinney MD [address] [phone] DX: Chronic diastolic heart failure 09/20/2025 8:15 AM EST Procedure Cardiology [address] [place], [place] [phone] Dx. Atherosclerotic heart disease of [place] coronary artery with other forms of angina pectoris 09/20/2025 9:00 AM EST Appointment Cardiology [address] [place], [place] [phone] Dx. Atherosclerotic heart disease of [place] coronary artery with other forms of angina pectoris 09/20/2025 9:45 AM EST Office Visit Cardiology [address] [phone] Nj Wei MD [address] [phone] Dx. Atherosclerotic heart disease of [place] coronary artery with other forms of angina pectoris documented as of this encounter Visit Diagnoses Not on filedocumented in this encounter Care Teams Machine Clothing Worker Relationship Specialty Start Date End Date Samm Serrano MD PCP - General Family Medicine 05/30/12 Tom Gonzalez [address] [place] [address] Primary Staff Physician Cardiology 12/02/18 Andreas Pierre MD [address] [place] [address] Primary Staff Physician Cardiology 04/26/23 Virgil Carrillo MD [address] [phone] Primary Staff Physician Cardiology 10/29/23 Jethro Mendoza MD [address] [place] [address] Primary Staff Physician Cardiology 12/26/23 Isaías Kinney MD [address] [phone] Primary Staff Physician Cardiology 01/10/24 documented as of this encounter
--- OUTSIDE RECORDS SUMMARY | 2025-04-08 10:53 | XMS_ITS | Encounter Summary ---
Author Organization [facility] Address [address] [place] [address] Care Team Providers Care Men'S Basketball Coach Name Role Phone Samm Serrano MD Primary Care Provider +-4 Tom Gonzalez Unavailable [phone] Andreas Pierre MD Unavailable Virgil Carrillo MD Unavailable Jethro Mendoza MD Unavailable Isaías Kinney MD Unavailable [phone] Source Comments In the event this information is protected by the Federal Confidentiality of Alcohol and Drug AbusePatient Records regulations: The Federal rules restrict any use of the information to criminally investigate or prosecute any alcohol or drug abuse patient.[facility] Encounter Details Date Type Department Care Team (Late st Contact Info) Description 11/29/2022 Patient Msg Cardiology [address] [place], [place] [phone] Provider, Ccf Appointment Cancellation Request Social History [...] N ot on file 10/01/2022 Data from: https://www.neighborhoodatlas.medicine.[facility]/. Last address used for calculation [...] 06/30/2025 10:00 AM EDT Office Visit Cardiology [address] [place] [address] Isaías Kinney MD [address] [place] [address] DX: Chronic diastolic heart failure 09/20/2025 8:15 AM EST Procedure Cardiology [address] [place] [address] Dx. Atherosclerotic heart disease of [place] coronary artery with other forms of angina pectoris 09/20/2025 9:00 AM EST Appointment Cardiology [address] [place] [address] Dx. Atherosclerotic heart disease of [place] coronary artery with other forms of angina pectoris 09/20/2025 9:45 AM EST Office Visit Cardiology [address] [place] [address] Nj Wei MD [address] [place] [address] Dx. Atherosclerotic heart disease of [place] coronary artery with other forms of angina pectoris documented as of this encounter Visit Diagnoses Not on filedocumented in this encounter Care Teams Men'S Basketball Coach Relationship Specialty Start Date End Date Samm Serrano MD PCP - General Family Medicine 05/30/12 Tom Gonzalez [address] [place] [address] Primary Staff Physician Cardiology 12/02/18 Andreas Pierre MD [address] [place] [address] Primary Staff Physician Cardiology 04/26/23 Virgil Carrillo MD [address] [place] [address] Primary Staff Physician Cardiology 10/29/23 Jethro Mendoza MD [address] [place] [address] Primary Staff Physician Cardiology 12/26/23 Isaías Kinney MD [address] [place] [address] Primary Staff Physician Cardiology 01/10/24 documented as of this encounter
--- OUTSIDE RECORDS SUMMARY | 2025-04-08 10:53 | XMS_ITS | Encounter Summary ---
Author Organization [facility] Address [address] [place] [address] Care Team Providers Care Scientific Systems Analyst Name Role Phone Samm Serrano MD Primary Care Provider +-4 Tom Gonzalez Unavailable [phone] Andreas Pierre MD Unavailable Virgil Carrillo MD Unavailable Jethro Mendzoa MD Unavailable Isaías Kinney MD Unavailable [phone] Source Comments In the event this information is protected by the Federal Confidentiality of Alcohol and Drug AbusePatient Records regulations: The Federal rules restrict any use of the information to criminally investigate or prosecute any alcohol or drug abuse patient.[facility] Encounter Details Date Type Department Care Team (Late st Contact Info) Description 11/28/2022 Patient Msg Vascular Surg Dept [address] [place] [address] John Jefferson MD [address] [place] [address] Appointment Cancellation Request Social History Tobacco Use [...] N ot on file 10/01/2022 Data from: https://www.neighborhoodatlas.[facility].edu/. Last address used for calculation [...] Author No 03/25/2019 11:00 AM DOTTIET Jia Rios)AREIS * Do you have difficulty dressing or [...] 10:00 AM EDT Office Visit Cardiology [address] [place] [address] Isaías Kinney MD [address] [place] [address] DX: Chronic diastolic heart failure 09/20/2025 8:15 AM EST Procedure Cardiology [address] [place] [address] Dx. Atherosclerotic heart disease of [place] coronary artery with other forms of angina pectoris 09/20/2025 9:00 AM EST Appointment Cardiology [address] [place] [address] Dx. Atherosclerotic heart disease of [place] coronary artery with other forms of angina pectoris 09/20/2025 9:45 AM EST Office Visit Cardiology [address] [place] [address] Nj Wei MD [address] [place] [address] Dx. Atherosclerotic heart disease of [place] coronary artery with other forms of angina pectoris documented as of this encounter Visit Diagnoses Not on filedocumented in this encounter Care Teams Scientific Systems Analyst Relationship Specialty Start Date End Date Samm Serrano MD PCP - General Family Medicine 9/14/12 Tom Gonzalez [address] [place] [address] Primary Staff Physician Cardiology 12/02/18 Andreas Pierre MD [address] [place] [address] Primary Staff Physician Cardiology 04/26/23 Virgil Carrillo MD [address] [place] [address] Primary Staff Physician Cardiology 10/29/23 Jethro Mendoza MD [address] [place] [address] Primary Staff Physician Cardiology 12/26/23 Isaías Kinney MD [address] [place] [address] Primary Staff Physician Cardiology 01/10/24 documented as of this encounter
--- OUTSIDE RECORDS SUMMARY | 2025-04-08 10:53 | XMS_ITS | Encounter Summary ---
Author Organization [facility] Address [address] [place] [address] Care Team Providers Care Driller Portable Name Role Phone Samm Serrano MD Primary Care Provider [phone] Inocencio Falk DO Unavailable [phone] Tom Gonzalez Unavailable [phone] Andreas Pierre MD Unavailable Virgil Carrillo MD Unavailable Jethro Mendoza MD Unavailable Isaías Kinney MD Unavailable [phone] Source Comments In the event this information is protected by the Federal Confidentiality of Alcohol and Drug AbusePatient Records regulations: The Federal rules restrict any use of the information to criminally investigate or prosecute any alcohol or drug abuse patient.[facility] Encounter Details Date Type Department Care Team (Late st Contact Info) Description 06/09/2013 Patient Msg Medical Records [address] [place] [address] Provider, Ccf Request an Appointment Social History [...] 10:00 AM EDT Office Visit Cardiology [address] [place], [place] [phone] Isaías Kinney MD [address] [phone] DX: Chronic diastolic heart failure 09/20/2025 8:15 AM EST Procedure Cardiology [address] [place] [address] Dx. Atherosclerotic heart disease of [place] coronary artery with other forms of angina pectoris 09/20/2025 9:00 AM EST Appointment Cardiology [address] [place], [place] [phone] Dx. Atherosclerotic heart disease of [place] coronary artery with other forms of angina pectoris 09/20/2025 9:45 AM EST Office Visit Cardiology [address] [place], [place] [phone] Nj Wei MD [address] [place] [address] Dx. Atherosclerotic heart disease of [place] coronary artery with other forms of angina pectoris documented as of this encounter Visit Diagnoses Not on filedocumented in this encounter Care Teams Driller Portable Relationship Specialty Start Date End Date Samm Serrano MD PCP - General Family Medicine 05/30/12 Inocencio Falk DO [address] [place] [address] Primary Staff Physician Cardiology 12/15/14 Carlos Tommarvin Gtz [address] [address] Primary Staff Physician Cardiology 12/02/18 Andreas Pierre MD [address] [place] [address] Primary Staff Physician Cardiology 04/26/23 Virgil Carrillo MD [address] [phone] Primary Staff Physician Cardiology 10/29/23 Jethro Mendoza MD [address] [place], [place] [address] [place] [address] Primary Staff Physician Cardiology 12/26/23 Isaías Kinney MD [address] [phone] Primary Staff Physician Cardiology 01/10/24 documented as of this encounter
--- OUTSIDE RECORDS SUMMARY | 2025-04-08 10:53 | XMS_ITS | Encounter Summary ---
Author Organization [facility] Address [address] [place] [address] Care Team Providers Care Inspector Metal Can Name Role Phone Samm Serrano MD Primary Care Provider [phone] Inocencio Falk DO Unavailable [phone] Tom Gonzalez Unavailable [phone] Andreas Pierre MD Unavailable Virgil Carrillo MD Unavailable Jethro Mendoza MD Unavailable Isaías Kinney MD Unavailable [phone] Source Comments In the event this information is protected by the Federal Confidentiality of Alcohol and Drug AbusePatient Records regulations: The Federal rules restrict any use of the information to criminally investigate or prosecute any alcohol or drug abuse patient.[facility] Encounter Details Date Type Department Care Team (Late st Contact Info) Description 06/09/2013 Patient Msg Medical Records [address] [place] [address] Provider, Ccf RE: Request an Appointment Social [...] 06/30/2025 10:00 AM EDT Office Visit Cardiology [address] [place], [place] [phone] Isaías Kinney MD [address] [phone] DX: Chronic diastolic heart failure 09/20/2025 8:15 AM EST Procedure Cardiology [address] [place] [address] Dx. Atherosclerotic heart disease of [place] coronary artery with other forms of angina pectoris 09/20/2025 9:00 AM EST Appointment Cardiology [address] [place], [place] [phone] Dx. Atherosclerotic heart disease of [place] coronary artery with other forms of angina pectoris 09/20/2025 9:45 AM EST Office Visit Cardiology [address] [place], [place] [phone] Nj Wei MD [address] [place] [address] Dx. Atherosclerotic heart disease of [place] coronary artery with other forms of angina pectoris documented as of this encounter Visit Diagnoses Not on filedocumented in this encounter Care Teams Inspector Metal Can Relationship Specialty Start Date End Date Samm Serrano MD PCP - General Family Medicine 05/30/12 Inocencio Falk DO [address] [facility] [place] [phone] Primary Staff Physician Cardiology 12/15/14 Carlos Tommarvin Gtz [address] [place] [address] [place] [address] Primary Staff Physician Cardiology 12/02/18 Andreas Pierre MD [address] [place] [address] Primary Staff Physician Cardiology 04/26/23 Virgil Carrillo MD [address] [place] [phone] Primary Staff Physician Cardiology 10/29/23 Jethro Mendoza MD [address] [facility] [address] Primary Staff Physician Cardiology 12/26/23 Isaías Kinney MD [address] [place] [phone] Primary Staff Physician Cardiology 01/10/24 documented as of this encounter
--- OUTSIDE RECORDS SUMMARY | 2025-04-08 10:53 | XMS_ITS | Encounter Summary ---
Author Organization [facility] Address [address] [place] [address] Care Team Providers Care Accounts Payable Clerk Name Role Phone Samm Serrano MD Primary Care Provider +-4 Tom Gonzalez Unavailable [phone] Andreas Pierre MD Unavailable Virgil Carrillo MD Unavailable Jethro Mendoza MD Unavailable Isaías Kinney MD Unavailable [phone] Source Comments In the event this information is protected by the Federal Confidentiality of Alcohol and Drug AbusePatient Records regulations: The Federal rules restrict any use of the information to criminally investigate or prosecute any alcohol or drug abuse patient.[facility] Encounter Details Date Type Department Care Team (Late st Contact Info) Description 09/03/2022 Letters (in) Vascular Surg Dept [address] [place] [address] John Jefferson MD [address] [place] [address] Social History Tobacco Use Types Packs/Day Years [...] N ot on file 04/26/2022 Data from: https://www.neighborhoodatlas.medicine.[facility]/. Last address used for calculation 9[address] [...] 09/03/2022 12:00 AM EST John Jefferson MD Attendance Officer Department of Vascular Surgery [address] [place] [address] Office: [phone] Appointments: [facility]/ [phone] Fax: [phone] December 19, 2022 José Miguel Roth [address] [address] NAME: JOSÉ [facility] NO: [id number] : 1940 DATE OF SERVICE: 09/03/2022 Dear [...] Jefferson M.D (Signed electronically to expedite mailing) [facility]/rin . SUMEET/089 Audio #: [id number] Date Dictated: 12/19/2022 11:16:33 Date Typed: 12/21/2022 08:54:29 Date Revised: documented in this encounter Plan of Treatment Upcoming Encounters Date Type Department Care Team (Latest Contact Info) Description 06/30/2025 10:00 AM EDT Office Visit Cardiology [address] [place] [address] Isaías Kinney MD [address] [place] [address] DX: Chronic diastolic heart failure 09/20/2025 8:15 AM EST Procedure Cardiology [address] [place] [address] Dx. Atherosclerotic heart disease of [place] coronary artery with other forms of angina pectoris 09/20/2025 9:00 AM EST Appointment Cardiology [address] [place], [place] [phone] Dx. Atherosclerotic heart disease of [place] coronary artery with other forms of angina pectoris 09/20/2025 9:45 AM EST Office Visit Cardiology [address] [place], [place] [phone] Nj Wei MD [address] [phone] Dx. Atherosclerotic heart disease of [place] coronary artery with other forms of angina pectoris documented as of this encounter Visit Diagnoses Not on filedocumented in this encounter Care Teams Accounts Payable Clerk Relationship Specialty Start Date End Date Samm Serrano MD PCP - General Family Medicine 05/30/12 Tom Gonzalez [address] [place] [address] Primary Staff Physician Cardiology 12/02/18 Andreas Pierre MD [address] [place], [place] [phone] Primary Staff Physician Cardiology 04/26/23 Virgil Carrillo MD [address] [place], [place] [address] Primary Staff Physician Cardiology 10/29/23 Jethro Mendoza MD [address] [place] [address] Primary Staff Physician Cardiology 12/26/23 Isaías Kinney MD [address] [place] [address] Primary Staff Physician Cardiology 01/10/24 documented as of this encounter
--- OUTSIDE RECORDS SUMMARY | 2025-04-08 10:53 | XMS_ITS | Encounter Summary ---
Author Organization [facility] Address [address] [place] [address] Care Team Providers Care Silica Mixer Operator Name Role Phone Samm Serrano MD Primary Care Provider +-4 Tom Gonzalez Unavailable [phone] Andreas Pierre MD Unavailable Virgil Carrillo MD Unavailable Jethro Mendoza MD Unavailable Isaías Kinney MD Unavailable [phone] Source Comments In the event this information is protected by the Federal Confidentiality of Alcohol and Drug AbusePatient Records regulations: The Federal rules restrict any use of the information to criminally investigate or prosecute any alcohol or drug abuse patient.[facility] Encounter Details Date Type Department Care Team (Late st Contact Info) Description 09/28/2023 DOWNTIME NOTICE [place] [place] [address] Note, Interface Social History Tobacco Use Types [...] lower risk 3 04/02/2023 Data from: https://www.neigh katherinehoodatlas.medicine.[facility].edu/. Last address used for calculation [...] documented in this encounter Progress Notes * Adriana Holbrook - 09/28/2023 2:13 AM EST Epic Scheduled Downtime: 09/28/2023 1:00:00 AM to 09/28/2023 2:04:22 AM documented in this encounter Plan of Treatment Upcoming Encounters Date Type Department Care Team (Latest Contact Info) Description 06/30/2025 10:00 AM EDT Office Visit Cardiology [address] [phone] Isaías Kinney MD [address] [phone] DX: Chronic diastolic heart failure 09/20/2025 8:15 AM EST Procedure Cardiology [address] [place] [address] Dx. Atherosclerotic heart disease of [place] coronary artery with other forms of angina pectoris 09/20/2025 9:00 AM EST Appointment Cardiology [address] [place], [place] [phone] Dx. Atherosclerotic heart disease of [place] coronary artery with other forms of angina pectoris 09/20/2025 9:45 AM EST Office Visit Cardiology [address] [place] [address] Nj Wei MD [address] [place] [address] Dx. Atherosclerotic heart disease of [place] coronary artery with other forms of angina pectoris documented as of this encounter Visit Diagnoses Not on filedocumented in this encounter Care Teams Silica Mixer Operator Relationship Specialty Start Date End Date Samm Serrano MD PCP - General Family Medicine 05/30/12 Tom Gonzalez [address] [facility] [place] [address] Primary Staff Physician Cardiology 12/02/18 Andreas Pierre MD [address] [phone] Primary Staff Physician Cardiology 04/26/23 Virgil Carrillo MD [address] [phone] Primary Staff Physician Cardiology 10/29/23 Jethro Mendoza MD [address] [place] [address] Primary Staff Physician Cardiology 12/26/23 Isaías Kinney MD [address] [place] [address] Primary Staff Physician Cardiology 01/10/24 documented as of this encounter
--- OUTSIDE RECORDS SUMMARY | 2025-04-08 10:53 | XMS_ITS | Encounter Summary ---
Author Organization [facility] Address [address] [place] [address] Care Team Providers Care Plugging Machine Operator Name Role Phone Samm Serrano MD Primary Care Provider +-4 Tom Gonzalez Unavailable [phone] Andreas Pierre MD Unavailable Virgil Carrillo MD Unavailable Jethro Mendoza MD Unavailable Isaías Kinney MD Unavailable [phone] Source Comments In the event this information is protected by the Federal Confidentiality of Alcohol and Drug AbusePatient Records regulations: The Federal rules restrict any use of the information to criminally investigate or prosecute any alcohol or drug abuse patient.[facility] Encounter Details Date Type Department Care Team (Late st Contact Info) Description 11/28/2022 Patient Msg Vascular Surg Dept [address] [place] [address] Tiarra Lopez APRN.DIRECTOR GENERAL [address] [place] [address] Appointment Cancellation Request Social History Tobacco Use [...] N ot on file 10/01/2022 Data from: https://www.neighborhoodatlas.medicine.[facility].edu/. Last address used for calculation 965 [...] 06/30/2025 10:00 AM EDT Office Visit Cardiology [address] [place] [address] Isaías Kinney MD [address] [phone] DX: Chronic diastolic heart failure 09/20/2025 8:15 AM EST Procedure Cardiology [address] [place] [address] Dx. Atherosclerotic heart disease of [place] coronary artery with other forms of angina pectoris 09/20/2025 9:00 AM EST Appointment Cardiology [address] [place] [address] Dx. Atherosclerotic heart disease of [place] coronary artery with other forms of angina pectoris 09/20/2025 9:45 AM EST Office Visit Cardiology [address] [place] [address] jN Wei MD [address] [place] [address] Dx. Atherosclerotic heart disease of [place] coronary artery with other forms of angina pectoris documented as of this encounter Visit Diagnoses Not on filedocumented in this encounter Care Teams Plugging Machine Operator Relationship Specialty Start Date End Date Samm Serrano MD PCP - General Family Medicine 05/30/12 Tom Gonzalez [address] [place] [address] Primary Staff Physician Cardiology 12/02/18 Andreas Pierre MD [address] [place] [address] Primary Staff Physician Cardiology 04/26/23 Virgil Carrillo MD [address] [place] [address] Primary Staff Physician Cardiology 10/29/23 Jethro Mendoza MD [address] [place] [address] Primary Staff Physician Cardiology 12/26/23 Isaías Kinney MD [address] [place] [address] Primary Staff Physician Cardiology 01/10/24 documented as of this encounter
--- OUTSIDE RECORDS SUMMARY | 2025-04-08 10:53 | XMS_ITS | Encounter Summary ---
Author Organization [facility] Address [address] [place] [address] Care Team Providers Care Wood Tile Installation Helper Name Role Phone Samm Serrano MD Primary Care Provider +-4 Tom Gonzalez Unavailable [phone] Andreas Pierre MD Unavailable Virgil Carrillo MD Unavailable Jethro Mendoza MD Unavailable Isaías Kinney MD Unavailable [phone] Source Comments In the event this information is protected by the Federal Confidentiality of Alcohol and Drug AbusePatient Records regulations: The Federal rules restrict any use of the information to criminally investigate or prosecute any alcohol or drug abuse patient.[facility] Encounter Details Date Type Department Care Team (Late st Contact Info) Description 11/28/2022 Patient Msg Vascular Surg Dept [address] [place] [address] Tiarra Lopez APRN.CONTINUOUS MINING MACHINE COAL MINER [address] [place] [address] Appointment Cancellation Request Social History Tobacco Use [...] 10:00 AM EDT Office Visit Cardiology [address] [place] [address] Isaías Kinney MD [address] [phone] DX: Chronic diastolic heart failure 09/20/2025 8:15 AM EST Procedure Cardiology [address] [place] [address] Dx. Atherosclerotic heart disease of [place] coronary artery with other forms of angina pectoris 09/20/2025 9:00 AM EST Appointment Cardiology [address] [place] [address] Dx. Atherosclerotic heart disease of [place] coronary artery with other forms of angina pectoris 09/20/2025 9:45 AM EST Office Visit Cardiology [address] [place] [address] Nj Wei MD [address] [place] [address] Dx. Atherosclerotic heart disease of [place] coronary artery with other forms of angina pectoris documented as of this encounter Visit Diagnoses Not on filedocumented in this encounter Care Teams Wood Tile Installation Helper Relationship Specialty Start Date End Date Samm Serrano MD PCP - General Family Medicine 05/30/12 Tom Gonzalez [address] [place] [address] Primary Staff Physician Cardiology 12/02/18 Andreas Pierre MD [address] [place] [address] Primary Staff Physician Cardiology 04/26/23 Virgil Carrillo MD [address] [place] [address] Primary Staff Physician Cardiology 10/29/23 Jethro Mendoza MD [address] [place] [address] Primary Staff Physician Cardiology 12/26/23 Isaías Kinney MD [address] [place] [address] Primary Staff Physician Cardiology 01/10/24 documented as of this encounter
--- OUTSIDE RECORDS SUMMARY | 2025-04-08 10:53 | XMS_ITS | Encounter Summary ---
Author Organization [facility] Address [address] [place] [address] Care Team Providers Care Pediatric Physiatrist Name Role Phone Samm Serrano MD Primary Care Provider +-4 Tom Gonzalez Unavailable [phone] Andreas Pierre MD Unavailable Virgil Carrillo MD Unavailable Jethro Mendoza MD Unavailable Isaías Kinney MD Unavailable [phone] Source Comments In the event this information is protected by the Federal Confidentiality of Alcohol and Drug AbusePatient Records regulations: The Federal rules restrict any use of the information to criminally investigate or prosecute any alcohol or drug abuse patient.[facility] Reason for Visit * Reason Comments Patient Update Future Appointment Lab Orders Encounter Details Date Type Department Care Team (Late st Contact Info) Description 03/22/2025 Telephone Radiation Oncology [address] [place] [address] [place] [address] Yung Andrade MD [address] [address] Patient Update; Future Appointment; Lab Orders Social History Tobacco Use Types Packs/Day Years Used Date Smoking Tobacco: Former Cigarettes 1 10 0 04/28/1972 - 04/28/1982 Pipe Passive Smoke Exposure: Never Smokeless Tobacco: Never Alcohol Use Standard Drinks/Week Comments Not Currently 0 (1 standard drink = 0.6 oz pur e alcohol) rarely [facility] Utilities Answer Date Recorded In the [...] place to sleep or slept in a fdc (including now)? No 03/02/2024 Housing Stability Vital Sign Answer Akbar e Recorded In the last 12 months, was t here a time when you were not able to pay the mortgage or rent on time? Yes 07/22/2024 In the past 12 months, how m any times have you moved where you were living? 0 07/22/2024 At any time in the past 12 m [facility], were you homeless or living in a fdc (including now)? Yes 07/22/2024 Area Deprivation Index Answer Date Rich rded National Score (1-100), lower number is lower ri sk 52 02/05/2024 State Score (1-10), lower number is lower risk 3 02/05/2024 Data from: https://www.neighborhoodatlas.[facility].edu/. Last address used for calculation [address] [place] [address] [address] 02/05/2024 Sex and Gender Information [...] 3:03 PM EDT Akosua Ramírez, RN * Do you have serious difficulty [...] Akosua Ramírez RN documented in this encounter Miscellaneous Notes * Telephone Encounter - Kathie Pavon RN - 03/22/2025 9:40 AM EDT Pt called in again and has had multiple appts, but wants to get back in for PSA and to see Dr Andrade. Pt was unable to tell me when he could do PSA or f/u as he has to rely on transportation. After discussion, we will place PSA order and pt will come in when he is able for that. At that time, he will let credit front office developer know and arrange either in person or phone visit for follow up with Dr Andrade. Dr Andrade- please sign pended order. Kathie Pavon RN * Telephone Encounter - Kathie Pavon RN - 03/22/2025 9:34 AM EDT Call received from pt after having to cancel prior appts. Pt requested CB from nursing. Pt call was returned and LM requesting CB. Kathie Pavon RN documented in this encounter Plan of Treatment Upcoming Encounters Date Type Department Care Team (Latest Contact Info) Description 06/30/2025 10:00 AM EDT Office Visit Cardiology [address] [place] [address] Isaías Kinney MD [address] [place] [address] DX: Chronic diastolic heart failure 09/20/2025 8:15 AM EST Procedure Cardiology [address] [place] [address] Dx. Atherosclerotic heart disease of [place] coronary artery with other forms of angina pectoris 09/20/2025 9:00 AM EST Appointment Cardiology [address] [place] [address] Dx. Atherosclerotic heart disease of [place] coronary artery with other forms of angina pectoris 09/20/2025 9:45 AM EST Office Visit Cardiology [address] [phone] Nj Wei MD [address] [place] [phone] Dx. Atherosclerotic heart disease of [place] coronary artery with other forms of angina pectoris Scheduled Orders Name Type Priority Associated Diagnoses Orde r Schedule PROSTATE-SPECIFIC ANTIGEN DIAGNOSTIC Lab Routine History of prostate cancer Expected: 03/23/2025, Expires: 06/22/2025 documented as of this encounter Goals Goal Patient Goal Type Associated Problems Recent Progress Patient-Stated? Author Blood Pressure < 130/80 Blood Pressure 134/63( 025 3:00 PM EDT) Lidia Soto RN documented as of this encounter Visit Diagnoses Diagnosis History of prostate cancer- Primary Personal history of malignant neoplasm of prostate documented in this encounter Care Teams Pediatric Physiatrist Relationship Specialty Start Date End Date Samm Serrano MD PCP - General Family Medicine 05/30/12 Tom Gonzalez [address] [place] [address] Primary Staff Physician Cardiology 12/02/18 Andreas Pierre MD [address] [place] [address] Primary Staff Physician Cardiology 04/26/23 Virgil Carrillo MD [address] [place] [address] Primary Staff Physician Cardiology 10/29/23 Jethro Mendoza MD [facility] [place] [address] Primary Staff Physician Cardiology 12/26/23 Isaías Kinney MD [address] [place] [phone] Primary Staff Physician Cardiology 01/10/24 documented as of this encounter
--- OUTSIDE RECORDS SUMMARY | 2025-04-08 10:53 | XMS_ITS | Encounter Summary ---
Author Organization [facility] Address [address] [place] [address] Care Team Providers Care Choral Teacher Name Role Phone Samm Serrano MD Primary Care Provider +-4 Tom Gonzalez Unavailable [phone] Andreas Pierre MD Unavailable Virgil Carrillo MD Unavailable Jethro Mendoza MD Unavailable Isaías Kinney MD Unavailable [phone] Source Comments In the event this information is protected by the Federal Confidentiality of Alcohol and Drug AbusePatient Records regulations: The Federal rules restrict any use of the information to criminally investigate or prosecute any alcohol or drug abuse patient.[facility] Encounter Details Date Type Department Care Team (Late st Contact Info) Description 11/28/2022 Patient Msg Vascular Surg Dept [address] [place] [address] John Jefferson MD [address] [place] [address] Appointment Cancellation Request Social History Tobacco Use [...] N ot on file 10/01/2022 Data from: https://www.neighborhoodatlas.[facility].edu/. Last address used for calculation [address] [...] 06/30/2025 10:00 AM EDT Office Visit Cardiology [address] [place] [address] Isaías Kinney MD [address] [place] [address] DX: Chronic diastolic heart failure 09/20/2025 8:15 AM EST Procedure Cardiology [address] [place] [address] Dx. Atherosclerotic heart disease of [place] coronary artery with other forms of angina pectoris 09/20/2025 9:00 AM EST Appointment Cardiology [address] [place] [address] Dx. Atherosclerotic heart disease of [place] coronary artery with other forms of angina pectoris 09/20/2025 9:45 AM EST Office Visit Cardiology [address] [place] [address] Nj Wei MD [address] [place] [address] Dx. Atherosclerotic heart disease of [place] coronary artery with other forms of angina pectoris documented as of this encounter Visit Diagnoses Not on filedocumented in this encounter Care Teams Choral Teacher Relationship Specialty Start Date End Date Samm Serrano MD PCP - General Family Medicine 9/14/12 Tom Gonzalez [address] [place] [address] Primary Staff Physician Cardiology 12/02/18 Andreas Pierre MD [address] [place] [address] Primary Staff Physician Cardiology 04/26/23 Virgil Carrillo MD [address] [place] [address] Primary Staff Physician Cardiology 10/29/23 Jethro Mendoza MD [address] [place] [address] Primary Staff Physician Cardiology 12/26/23 Isaías Kinney MD [address] [place] [address] Primary Staff Physician Cardiology 01/10/24 documented as of this encounter
--- OUTSIDE RECORDS SUMMARY | 2025-04-08 10:53 | XMS_ITS | Encounter Summary ---
Author Organization [facility] Address [address] [place] [address] Care Team Providers Care Picc Nurse Name Role Phone Samm Serrano MD Primary Care Provider +-4 Tom Gonzalez Unavailable [phone] Andreas Pierre MD Unavailable Virgil Carrillo MD Unavailable Jethro Mendoza MD Unavailable Isaías Kinney MD Unavailable [phone] Source Comments In the event this information is protected by the Federal Confidentiality of Alcohol and Drug AbusePatient Records regulations: The Federal rules restrict any use of the information to criminally investigate or prosecute any alcohol or drug abuse patient.[facility] Encounter Details Date Type Department Care Team (Late st Contact Info) Description 11/28/2022 Patient Msg Cardiology [address] [place], [place] [id number] Provider, Ccf Appointment Cancellation Request Social History [...] N ot on file 10/01/2022 Data from: https://www.neighborhoodatlas.medicine.[facility]/. Last address used for calculation [address] [...] 10:00 AM EDT Office Visit Cardiology [address] [place] [address] Isaías Kinney MD [address] [place] [address] DX: Chronic diastolic heart failure 09/20/2025 8:15 AM EST Procedure Cardiology [address] [place] [address] Dx. Atherosclerotic heart disease of [place] coronary artery with other forms of angina pectoris 09/20/2025 9:00 AM EST Appointment Cardiology [address] [place] [address] Dx. Atherosclerotic heart disease of [place] coronary artery with other forms of angina pectoris 09/20/2025 9:45 AM EST Office Visit Cardiology [address] [place] [address] Nj Wei MD [address] [place] [address] Dx. Atherosclerotic heart disease of [place] coronary artery with other forms of angina pectoris documented as of this encounter Visit Diagnoses Not on filedocumented in this encounter Care Teams Picc Nurse Relationship Specialty Start Date End Date Samm Serrano MD PCP - General Family Medicine 05/30/12 Tom Gonzalez [address] [place] [address] Primary Staff Physician Cardiology 12/02/18 Andreas Pierre MD [address] [place] [address] Primary Staff Physician Cardiology 04/26/23 Virgil Carrillo MD [address] [place] [address] Primary Staff Physician Cardiology 10/29/23 Jethro Mendoza MD [address] [place] [address] Primary Staff Physician Cardiology 12/26/23 Isaías Kinney MD [address] [place] [address] Primary Staff Physician Cardiology 01/10/24 documented as of this encounter
--- OUTSIDE RECORDS SUMMARY | 2025-04-08 10:53 | XMS_ITS | Encounter Summary ---
Author Organization [facility] Address [address] [place] [address] Care Team Providers Care Kettle Girl Name Role Phone Samm Serrano MD Primary Care Provider +-4 Tom Gonzalez Unavailable [phone] Andreas Pierre MD Unavailable Virgil Carrillo MD Unavailable Jethro Mendoza MD Unavailable Isaías Kinney MD Unavailable [phone] Source Comments In the event this information is protected by the Federal Confidentiality of Alcohol and Drug AbusePatient Records regulations: The Federal rules restrict any use of the information to criminally investigate or prosecute any alcohol or drug abuse patient.[facility] Encounter Details Date Type Department Care Team (Late st Contact Info) Description 11/29/2022 Patient Msg Cardiology [address] [place], [place] [id number] Provider, Ccf Appointment Cancellation Request Social History [...] N ot on file 10/01/2022 Data from: https://www.neighborhoodatlas.medicine.[facility]/. Last address used [...] 06/30/2025 10:00 AM EDT Office Visit Cardiology [address] [place] [address] Isaías Kinney MD [address] [place] [address] DX: Chronic diastolic heart failure 09/20/2025 8:15 AM EST Procedure Cardiology [address] [place] [address] Dx. Atherosclerotic heart disease of [place] coronary artery with other forms of angina pectoris 09/20/2025 9:00 AM EST Appointment Cardiology [address] [place] [address] Dx. Atherosclerotic heart disease of [place] coronary artery with other forms of angina pectoris 09/20/2025 9:45 AM EST Office Visit Cardiology [address] [place] [address] Nj Wei MD [address] [place] [address] Dx. Atherosclerotic heart disease of [place] coronary artery with other forms of angina pectoris documented as of this encounter Visit Diagnoses Not on filedocumented in this encounter Care Teams Kettle Girl Relationship Specialty Start Date End Date Samm Serrano MD PCP - General Family Medicine 05/30/12 Tom Gonzalez [address] [place] [address] Primary Staff Physician Cardiology 12/02/18 Andreas Pierre MD [address] [place] [address] Primary Staff Physician Cardiology 04/26/23 Virgil Carrillo MD [address] [place] [address] Primary Staff Physician Cardiology 10/29/23 Jethro Mendoza MD [address] [place] [address] Primary Staff Physician Cardiology 12/26/23 Isaías Kinney MD [address] [place] [address] Primary Staff Physician Cardiology 01/10/24 documented as of this encounter
--- OUTSIDE RECORDS SUMMARY | 2025-04-08 10:53 | XMS_ITS | Encounter Summary ---
Author Organization [facility] Address [address] [place] [address] Care Team Providers Care Rounding Machine Tender Name Role Phone Samm Serrano MD Primary Care Provider [phone] Inocencio Falk DO Unavailable [phone] Tom Gonzalez Unavailable [phone] Andreas Pierre MD Unavailable Virgil Carrillo MD Unavailable Jethro Mendoza MD Unavailable Isaías Kinney MD Unavailable [phone] Source Comments In the event this information is protected by the Federal Confidentiality of Alcohol and Drug AbusePatient Records regulations: The Federal rules restrict any use of the information to criminally investigate or prosecute any alcohol or drug abuse patient.[facility] Encounter Details Date Type Department Care Team (Late st Contact Info) Description 11/21/2012 Patient Msg Medical Records [address] [place] [address] Provider, Ccf RE: Appointment Cancellation Request Social [...] 06/30/2025 10:00 AM EDT Office Visit Cardiology [address] [place], [place] [phone] Isaías Kinney MD [address] [place] [phone] DX: Chronic diastolic heart failure 09/20/2025 8:15 AM EST Procedure Cardiology [address] [place] [address] Dx. Atherosclerotic heart disease of [place] coronary artery with other forms of angina pectoris 09/20/2025 9:00 AM EST Appointment Cardiology [address] [place], [place] [phone] Dx. Atherosclerotic heart disease of [place] coronary artery with other forms of angina pectoris 09/20/2025 9:45 AM EST Office Visit Cardiology [address] [place], [place] [phone] Nj Wei MD [address] [place] [address] Dx. Atherosclerotic heart disease of [place] coronary artery with other forms of angina pectoris documented as of this encounter Visit Diagnoses Not on filedocumented in this encounter Care Teams Rounding Machine Tender Relationship Specialty Start Date End Date Samm Serrano MD PCP - General Family Medicine 05/30/12 Inocencio Falk DO [address] [facility] [place] [address] Primary Staff Physician Cardiology 12/15/14 Tom Gonzalez [address] [place] [address] [place] [address] Primary Staff Physician Cardiology 12/02/18 Andreas Pierre MD [address] [place] [phone] Primary Staff Physician Cardiology 04/26/23 Virgil Carrillo MD [address] [place] [phone] Primary Staff Physician Cardiology 10/29/23 Jethro Mendoza MD [address] [place] [address] Primary Staff Physician Cardiology 12/26/23 Isaías Kinney MD [address] [place] [address] Primary Staff Physician Cardiology 01/10/24 documented as of this encounter
--- OUTSIDE RECORDS SUMMARY | 2025-04-08 10:53 | XMS_ITS | Encounter Summary ---
Author Organization [facility] Address [address] [place] [address] Care Team Providers Care Shading Painter Name Role Phone Smam Serrano MD Primary Care Provider +-4 Tom Gonzalez Unavailable [phone] Andreas Pierre MD Unavailable Virgil Carrillo MD Unavailable Jethro Mendoza MD Unavailable Isaías Kinney MD Unavailable [phone] Source Comments In the event this information is protected by the Federal Confidentiality of Alcohol and Drug AbusePatient Records regulations: The Federal rules restrict any use of the information to criminally investigate or prosecute any alcohol or drug abuse patient.[facility] Encounter Details Date Type Department Care Team (Late st Contact Info) Description 11/28/2022 Patient Msg Vascular Surg Dept [address] [place] [address] Tiarra Lopez APRN.LEASE PICKER [address] [place] [address] Appointment Cancellation Request Social History Tobacco Use [...] N ot on file 10/01/2022 Data from: https://www.neighborhoodatlas.medicine.[facility].edu/. Last address used for calculation [...] 06/30/2025 10:00 AM EDT Office Visit Cardiology [address] [place] [address] Isaías Kinney MD [address] [place] [phone] DX: Chronic diastolic heart failure 09/20/2025 8:15 AM EST Procedure Cardiology [address] [place] [address] Dx. Atherosclerotic heart disease of [place] coronary artery with other forms of angina pectoris 09/20/2025 9:00 AM EST Appointment Cardiology [address] [place] [address] Dx. Atherosclerotic heart disease of [place] coronary artery with other forms of angina pectoris 09/20/2025 9:45 AM EST Office Visit Cardiology [address] [place] [address] Nj Wei MD [address] [place] [address] Dx. Atherosclerotic heart disease of [place] coronary artery with other forms of angina pectoris documented as of this encounter Visit Diagnoses Not on filedocumented in this encounter Care Teams Shading Painter Relationship Specialty Start Date End Date Samm Serrano MD PCP - General Family Medicine 05/30/12 Tom Gonzalez [address] [place] [address] Primary Staff Physician Cardiology 12/02/18 Andreas Pierre MD [address] [place] [address] Primary Staff Physician Cardiology 04/26/23 Virgil Carrillo MD [address] [place] [address] Primary Staff Physician Cardiology 10/29/23 Jethro Mendoza MD [address] [place] [address] Primary Staff Physician Cardiology 12/26/23 Isaías Kinney MD [address] [place] [address] Primary Staff Physician Cardiology 01/10/24 documented as of this encounter
--- OUTSIDE RECORDS SUMMARY | 2025-04-08 10:54 | XMS_ITS | Clinical Summary ---
Author Organization [facility] Address [address] [place] [address] Care Team Providers Care Office Agent Name Role Phone Francisca Serrano MD Primary Care Provider [phone] Allergies Active Allergy Reactions Criticality Noted Date Comments Adhesive Rash Low 05/16/2024 Amiodarone Other High 09/30/2024 Rash and severe transaminitis Latex Hives,Rash,Unknown Low 03/13/2019 Penicillins Unknown 12/03/2024 Medications apixaban (Eliquis) 2.5 mg tablet Take 5 mg by mouth two times daily. Active levothyroxine (Synthroid, Levoxyl) 100 mcg tablet Take 100 mcg by mouth before breakfast. Active metoprolol succinate XL (Toprol-XL) 25 mg 24 hr tabletIndications :MYLES (acute kidney injury) Take 0.5 tablets (12.5 mg) by mouth in the morning for 89 doses. Do not crush or chew. 10/16/19 25 Active mexiletine (Mexitil) 150 mg capsuleIndication s:MYLES (acute kidney injury) Take 1 capsule (150 mg) by mouth two times daily for 192 doses. 10/16/19 25 Active bumetanide (Bumex) 2 mg tabletIndications :MYLES (acute kidney injury) Take 1 tablet (2 mg) by mouth every 12 (twelve) hours for 198 doses. 10/17/19 25 Active thiamine (Vitamin B-1) 100 mg tablet Take 100 mg by mouth in the morning. Active potassium chloride CR (Klor-Con M20) 20 mEq ER tabletIndications :Hypokalemia Take 1 tablet (20 mEq) by mouth in the morning. Do not crush or chew. 60 tablet 1 03/14/20 25 Active aMILoride (Midamor) 5 mg tabletIndications :Cardiorenal syndrome with renal failure, stage 1-4 or unspecified chronic kidney disease, with heart failure (CMS/HCC),Hypokal emia,Heart failure with reduced ejection fraction (CMS/HCC) Take 1 tablet (5 mg) by mouth in the morning. 60 tablet 1 03/15/20 25 Active liothyronine (Cytomel) 5 mcg tabletIndications :Acquired hypothyroidism Take 1 tablet (5 mcg) by mouth in the morning. 30 tablet 03/16/20 25 025 Active ondansetron (Zofran) 4 mg tablet Take 8 mg by mouth if needed. Active coenzyme Q-10 100 mg capsule Take 100 mg by mouth in the morning. 025 Discontinued(St op Taking at Discharge) cetirizine (ZyrTEC) 10 mg chewable tablet Chew 10 mg if needed each day for allergies. 025 Discontinued(St op Taking at Discharge) bisacodyl (Dulcolax, bisacodyl,) 10 mg suppository Insert 10 mg into the rectum 1 (one) time if needed for constipati on. 025 Discontinued(St op Taking at Discharge) potassium chloride CR (Klor-Con M20) 20 mEq ER tablet Take 40 mEq by mouth in the morning. Do not crush or chew. 025 Discontinued(St op Taking at Discharge) zinc gluconate 30 mg tablet Take 30 mg by mouth 1 (one) time each day. 025 Discontinued(St op Taking at Discharge) liothyronine (Cytomel) 5 mcg tabletIndications :Acquired hypothyroidism Take 1 tablet (5 mcg) by mouth in the morning. 30 tablet 03/16/20 25 025 Discontinued cephalexin (Keflex) 500 mg capsule Take 1 capsule (500 mg) by mouth four times daily for 5 days. 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 Vitamin D deficiency 04/08/2025 Cerebrovascular accident (CV A) due to occlusion of precerebral artery 03/17/2025 A-fib 03/06/2025 Assessment & Plan (03/15/2025 4:04 PM EDT): Continue Eliquis and Toprol-XL as well as mexiletine Assessment & Plan (03/14/2025 11:12 AM EDT): Continue Eliquis and Toprol-XL as well as mexiletine Assessment & Plan (03/13/2025 12:15 PM EDT): Continue Eliquis and Toprol-XL as well as mexiletine Assessment & Plan (03/12/2025 4:29 PM EDT): Continue Eliquis and Toprol-XL as well as mexiletine Assessment & Plan (03/11/2025 2:32 PM EDT): Continue Eliquis and Toprol-XL as well as mexiletine Assessment & Plan (03/10/2025 3:11 PM EDT): Continue Eliquis and Toprol-XL as well as mexiletine Assessment & Plan (03/09/2025 1:05 PM EDT): Continue Eliquis and Toprol-XL as well as mexiletine Assessment & Plan (03/08/2025 2:20 PM EDT): Continue Eliquis and Toprol-XL as well as mexiletine Assessment & Plan (03/07/2025 11:59 AM EDT): Continue Eliquis and Toprol-XL as well as mexiletine Assessment & Plan (03/06/2025 12:17 PM EDT): Continue Eliquis and Toprol-XL as well as mexiletine COPD (chronic obstructive pulmonary disease) Assessment & Plan (03/15/2025 4:04 PM EDT): Not in exacerbation Assessment & Plan (03/14/2025 11:12 AM EDT): Not in exacerbation Assessment & Plan (03/13/2025 12:15 PM EDT): Not in exacerbation Assessment & Plan (03/12/2025 4:29 PM EDT): Not in exacerbation Assessment & Plan (03/11/2025 2:32 PM EDT): Not in exacerbation Assessment & Plan (03/10/2025 3:11 PM EDT): Not in exacerbation Assessment & Plan (03/09/2025 1:05 PM EDT): Not in exacerbation Assessment & Plan (03/08/2025 2:20 PM EDT): Not in exacerbation Assessment & Plan (03/07/2025 11:59 AM EDT): Not in exacerbation Assessment & Plan (03/06/2025 12:17 PM EDT): Not in exacerbation Peripheral artery disease 03/06/2025 Assessment & Plan (03/15/2025 4:04 PM EDT): Patient had some discoloration of his toes as well as erythema bilateral lower extremities that does not seem infectious in nature. MARVEL was done and on the right showed DP 0.79 and PT 0.93 with normal TBI of 0.88 MARVEL on the left side showed DP 0.81 and PT 0.68 with normal TBI of 1.1 to Based on mild bilateral lower extremity stenosis, no intervention needed currently patient to continue Eliquis 2.5 Appreciate vascular input Assessment & Plan (03/14/2025 11:12 AM EDT): Patient had some discoloration of his toes as well as erythema bilateral lower extremities that does not seem infectious in nature. MARVEL was done and on the right showed DP 0.79 and PT 0.93 with normal TBI of 0.88 MARVEL on the left side showed DP 0.81 and PT 0.68 with normal TBI of 1.1 to Based on mild bilateral lower extremity stenosis, no intervention needed currently patient to continue Eliquis 2.5 Appreciate vascular input Assessment & Plan (03/13/2025 12:15 PM EDT): Patient had some discoloration of his toes as well as erythema bilateral lower extremities that does not seem infectious in nature. MARVEL was done and on the right showed DP 0.79 and PT 0.93 with normal TBI of 0.88 MARVEL on the left side showed DP 0.81 and PT 0.68 with normal TBI of 1.1 to Based on mild bilateral lower extremity stenosis, no intervention needed currently patient to continue Eliquis 2.5 Appreciate vascular input Assessment & Plan (03/12/2025 4:29 PM EDT): Patient had some discoloration of his toes as well as erythema bilateral lower extremities that does not seem infectious in nature. MARVEL was done and on the right showed DP 0.79 and PT 0.93 with normal TBI of 0.88 MARVEL on the left side showed DP 0.81 and PT 0.68 with normal TBI of 1.1 to Based on mild bilateral lower extremity stenosis, no intervention needed currently patient to continue Eliquis 2.5 Appreciate vascular input Assessment & Plan (03/11/2025 2:32 PM EDT): Patient had some discoloration of his toes as well as erythema bilateral lower extremities that does not seem infectious in nature. MARVEL was done and on the right showed DP 0.79 and PT 0.93 with normal TBI of 0.88 MARVEL on the left side showed DP 0.81 and PT 0.68 with normal TBI of 1.1 to Based on mild bilateral lower extremity stenosis, no intervention needed currently patient to continue Eliquis 2.5 Appreciate vascular input Assessment & Plan (03/10/2025 3:11 PM EDT): Patient had some discoloration of his toes as well as erythema bilateral lower extremities that does not seem infectious in nature. MARVEL was done and on the right showed DP 0.79 and PT 0.93 with normal TBI of 0.88 MARVEL on the left side showed DP 0.81 and PT 0.68 with normal TBI of 1.1 to Based on mild bilateral lower extremity stenosis, no intervention needed currently patient to continue Eliquis 2.5 Appreciate vascular input Assessment & Plan (03/09/2025 1:05 PM EDT): Patient had some discoloration of his toes as well as erythema bilateral lower extremities that does not seem infectious in nature. MARVEL was done and on the right showed DP 0.79 and PT 0.93 with normal TBI of 0.88 MARVEL on the left side showed DP 0.81 and PT 0.68 with normal TBI of 1.1 to Based on mild bilateral lower extremity stenosis, no intervention needed currently patient to continue Eliquis 2.5 Appreciate vascular input Assessment & Plan (03/08/2025 2:20 PM EDT): Patient had some discoloration of his toes as well as erythema bilateral lower extremities that does not seem infectious in nature. MARVEL was done and on the right showed DP 0.79 and PT 0.93 with normal TBI of 0.88 MARVEL on the left side showed DP 0.81 and PT 0.68 with normal TBI of 1.1 to venous duplex pending Appreciate vascular input Assessment & Plan (03/07/2025 11:59 AM EDT): Patient had some discoloration of his toes as well as erythema bilateral lower extremities that does not seem infectious in nature. Patient to have arterial Doppler to rule out any occlusive disease and venous duplex Appreciate vascular input Assessment & Plan (03/06/2025 12:17 PM EDT): Patient had some discoloration of his toes as well as erythema bilateral lower extremities that does not seem infectious in nature. Will discuss case with vascular team for possible workup with ABIs and arterial duplex Hyperkalemia 03/05/2025 Assessment & Plan (03/15/2025 4:04 PM EDT): Likely secondary to acute on chronic kidney disease Patient received dextrose and insulin Assessment & Plan (03/14/2025 11:12 AM EDT): Likely secondary to acute on chronic kidney disease Patient received dextrose and insulin Assessment & Plan (03/13/2025 12:15 PM EDT): Likely secondary to acute on chronic kidney disease Patient received dextrose and insulin Assessment & Plan (03/12/2025 4:29 PM EDT): Likely secondary to acute on chronic kidney disease Patient received dextrose and insulin per report current potassium 3.8 Assessment & Plan (03/11/2025 2:32 PM EDT): Likely secondary to acute on chronic kidney disease Patient received dextrose and insulin per report current potassium 3.8 Assessment & Plan (03/10/2025 3:11 PM EDT): Likely secondary to acute on chronic kidney disease Patient received dextrose and insulin per report current potassium 3.8 Assessment & Plan (03/09/2025 1:05 PM EDT): Likely secondary to acute on chronic kidney disease Patient received dextrose and insulin per report current potassium 3.7 Assessment & Plan (03/08/2025 2:20 PM EDT): Likely secondary to acute on chronic kidney disease Patient received dextrose and insulin per report current potassium 4.4 Assessment & Plan (03/07/2025 11:59 AM EDT): Likely secondary to acute on chronic kidney disease Patient received dextrose and insulin per report current potassium 3.5 Assessment & Plan (03/06/2025 12:17 PM EDT): Likely secondary to acute on chronic kidney disease Patient received dextrose and insulin per report current potassium 4.3 Assessment & Plan (03/05/2025 9:21 PM EDT): Patient's initial potassium at presentation was 5.6 but improved with treatment, per report Will recheck the level and treat accordingly Other ascites 03/05/2025 Assessment & Plan (03/05/2025 9:21 PM EDT): Paracentesis will be ordered as needed Alcoholic cirrhosis 11/04/2024 Interstitial lung disease 11/04/2024 Portal hypertension 11/04/2024 Dyspepsia 09/22/2024 Hypervolemia 09/22/2024 Hyponatremia 09/22/2024 Metabolic acidosis 09/22/2024 Palliative care by specialist 09/22/2024 Parageusia 09/22/2024 ICD (implantable cardioverter-defibrillator) dis charge 09/18/2024 Presence of cardiac and vasc ular implant and graft, unspecified 09/18/2024 Frequent PVCs 07/23/2024 Anemia of chronic disease 05/15/2024 Hematochezia 05/14/2024 Gastrointestinal hemorrhage 05/11/2024 At risk for delirium 05/09/2024 Gastro-esophageal reflux disease without esophag itis 05/08/2024 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 disease, or unspecified chronic kidney disease 05/08/2024 Pleural effusion on left 05/08/2024 Spinal stenosis, lumbar jose on without neurogenic claudication 05/08/2024 Atherosclerosis of coronary artery without angin a pectoris 05/08/2024 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 05/08/2024 Presence of aortocoronary bypass graft Cardiomyopathy, ischemic 05/07/2024 History of mitral valve repair 05/07/2024 Acute blood loss anemia 05/06/2024 Generalized weakness 05/06/2024 LV (left ventricular) mural thrombus 05/06/2024 Amaurosis fugax 03/02/2024 TIA (transient ischemic attack) 03/01/2024 Dyspnea, unspecified 02/07/2024 Stage 3b chronic kidney disease 01/10/2024 Hypokalemia 11/25/2023 Unspecified severe protein-calorie malnutrition 11/22/2023 Chronic obstructive pulmonary disease, unspecifi ed 11/18/2023 11/18/2023 Cardiorenal syndrome 10/27/2023 Carotid stenosis, asymptomatic, left 07/23/2022 History of ischemic stroke 07/23/2022 Coronary artery disease invo lving coronary bypass graft of unga heart 05/26/2022 Chronic systolic heart failure 05/26/2022 NSVT (nonsustained ventricular tachycardia) 05/17 Old [place] (myocardial infarction) 05/26/2022 Mitral valve insufficiency 05/26/2022 Claudication, intermittent 05/26/2022 Primary hypertension 05/23/2022 09/28/2023 Hypothyroidism, unspecified 05/23/202209/16 Major depressive disorder, recurrent, unspecifie d 05/23/2022 09/28/2023 Type 2 diabetes mellitus wit h diabetic chronic kidney disease 05/23/2022 09/28/2023 Assessment & Plan (03/15/2025 4:04 PM EDT): Continue sliding scale insulin for now Assessment & Plan (03/14/2025 11:12 AM EDT): Continue sliding scale insulin for now Assessment & Plan (03/13/2025 12:15 PM EDT): Continue sliding scale insulin for now Assessment & Plan (03/12/2025 4:29 PM EDT): Continue sliding scale insulin for now Assessment & Plan (03/11/2025 2:32 PM EDT): Continue sliding scale insulin for now Assessment & Plan (03/10/2025 3:11 PM EDT): Continue sliding scale insulin for now Assessment & Plan (03/09/2025 1:05 PM EDT): Continue sliding scale insulin for now Assessment & Plan (03/08/2025 2:20 PM EDT): Continue sliding scale insulin for now Assessment & Plan (03/07/2025 11:59 AM EDT): Continue sliding scale insulin for now Assessment & Plan (03/06/2025 12:17 PM EDT): Continue sliding scale insulin for now Assessment & Plan (03/05/2025 9:21 PM EDT): Diabetic diet Will check blood sugar AC and at bedtime and cover with ISS Chronic kidney disease, unspecified 05/23/2022 10/10/2023 Iron deficiency anemia, unspecified 05/23/2022 10/10/2023 Personal history of malignant neoplasm of prosta te 05/23/2022 10/10/2023 Personal history of transien t ischemic attack (TIA), and cerebral infarction without residual deficits 05/23/2022 10/10/19 24 Presence of automatic (implantable) cardiac defi brillator [...] get clearance to take Viagra through his bioprocess engineer. Both and patient are where the most contact bioprocess engineer prior to taking the medication. Viagra 1/2 [...] not to proceed. ==== 07/17/2019 ==== HIghest [place] Grade: 3+ 4 equal 7 # of [...] sexual function is: cannot sustain erection Comorbidities: cardiac---[place], Has AICD ==== 07/17/2019 ==== patient follow-up outside urologist as well as outside radiation oncologist. 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 PSA has fluctuate anywhere from 5 to approximately 13. Most recent PSA that I have of record is 12.3 in October 2014. Subsequent biopsy December 2018 2 course Austin 3 + 4 equal 7. Right side. [...] Referral to be made -per patient choice [facility]. 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 Plan: Aggressive risk factor management. See CAD section. Sweating 11/17/2012 10/10/2023 Overview (10/10/2023): History: Developed cold sweat ~ 1100 at rest during orthodox on 11/16. There was no nausea, chest pain, jaw pain, shortness of breath, or lightheadedness. This is similar to his symptoms when patient had STEMI in 04/2012. Patient presented to [facility] at 1200. EKG showed q waves in III, aVF; ST depression in I, aVL; ST elevation V3, V4, V5. On arrival to [facility] his EKG showed resolution of ST elevation in V4 and V5. His troponin 0.367 at OSH (? Troponin I); but has been negative at [facility] Main campus. Assessment: Possible atypical manifestations type II demand ischemia in setting of recent dehydration from profuse diarrhea or residual symptoms of recent illness. Cold sweat resolved after arrival. Plan: Trend cardiac enzymes, monitor clinical symptoms, and serial EKG's as needed. If continue to worsen clinically, would proceed to [facility]. 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 LFTs slightly up. No complaints. Continue. Resolved Problems Problem Noted Date Diagnosed Date Resolved Date Bacteremia 03/09/2025 03/17/2025 Assessment & Plan (03/15/2025 4:04 PM EDT): Blood culture from [facility] reported Stenotrophomonas maltophilia Per ID blood cultures likely contaminant and antibiotics being discontinued Assessment & Plan (03/14/2025 11:12 AM EDT): Blood culture from [facility] reported Stenotrophomonas maltophilia Per ID blood cultures likely contaminant and antibiotics being discontinued Assessment & Plan (03/13/2025 12:15 PM EDT): Blood culture from [facility] reported Stenotrophomonas maltophilia Per ID blood cultures likely contaminant and antibiotics being discontinued Assessment & Plan (03/12/2025 4:29 PM EDT): Blood culture from [facility] reported Stenotrophomonas maltophilia Per ID blood cultures likely contaminant and antibiotics being discontinued Assessment & Plan (03/11/2025 2:32 PM EDT): Blood culture from [facility] reported Stenotrophomonas maltophilia Per ID blood cultures likely contaminant and antibiotics being discontinued Assessment & Plan (03/10/2025 3:11 PM EDT): Blood culture from [facility] reported Stenotrophomonas maltophilia Per ID blood cultures likely contaminant and antibiotics being discontinued Assessment & Plan (03/09/2025 1:05 PM EDT): Blood culture from [facility] reported Stenotrophomonas maltophilia Per ID blood cultures likely contaminant and antibiotics being discontinued Elevated troponin 03/05/2025 03/17/2025 Assessment & Plan (03/15/2025 4:04 PM EDT): Highest troponin went up to 401 EKG showed a flutter with variable AV block Troponin elevation likely combination of CHF exacerbation and MYLES Assessment & Plan (03/14/2025 11:12 AM EDT): Highest troponin went up to 401 EKG showed a flutter with variable AV block Troponin elevation likely combination of CHF exacerbation and MYLES Assessment & Plan (03/13/2025 12:15 PM EDT): Highest troponin went up to 401 EKG showed a flutter with variable AV block Troponin elevation likely combination of CHF exacerbation and MYLES Assessment & Plan (03/12/2025 4:29 PM EDT): Highest troponin went up to 401 EKG showed a flutter with variable AV block Troponin elevation likely combination of CHF exacerbation and MYLES Assessment & Plan (03/11/2025 2:32 PM EDT): Highest troponin went up to 401 EKG showed a flutter with variable AV block Troponin elevation likely combination of CHF exacerbation and MYLES Assessment & Plan (03/10/2025 3:11 PM EDT): Highest troponin went up to 401 EKG showed a flutter with variable AV block Troponin elevation likely combination of CHF exacerbation and MYLES Assessment & Plan (03/09/2025 1:05 PM EDT): Highest troponin went up to 401 EKG showed a flutter with variable AV block Troponin elevation likely combination of CHF exacerbation and MYLES Assessment & Plan (03/08/2025 2:20 PM EDT): Highest troponin went up to 401 EKG showed a flutter with variable AV block Troponin elevation likely combination of CHF exacerbation and MYLES Assessment & Plan (03/07/2025 11:59 AM EDT): Highest troponin went up to 401 EKG showed a flutter with variable AV block Troponin elevation likely combination of CHF exacerbation and MYLES Assessment & Plan (03/06/2025 12:17 PM EDT): Highest troponin went up to 401 EKG showed a flutter with variable AV block Troponin elevation likely combination of CHF exacerbation and MYLES Assessment & Plan (03/05/2025 9:21 PM EDT): No chest pain Will recheck troponin level Acute on chronic congestive heart failure, unspecified heart failure type 03/05/2025 Assessment & Plan (03/15/2025 4:04 PM EDT): Patient known to have ischemic cardiomyopathy 5% status post AICD based on the last echo 10/05/2024 History of v.tach with ICD shock x2, last shock on 09/17/2024 CAD s/p CABG in 2012 Heart cath 2021 with patent OTTO-LAD and SVG to OM< occluded VG to PDA Severe MR s/p MV clip 02/18/2024 History of LV thrombus 03/29/2024 Patient started on Bumex and milrinone drip and today milrinone drip on hold and patient switched to intermittent Bumex Continue also Toprol-XL BMP of 4,437 with high-sensitivity troponin of 351 Repeat echo showed EF 5% with moderate to severe TR and moderate MR with evidence of Mitral Clip Palliative care consult discussed goals of cares and patient remain full code Assessment & Plan (03/14/2025 11:12 AM EDT): Patient known to have ischemic cardiomyopathy 5% status post AICD based on the last echo 10/05/2024 History of v.tach with ICD shock x2, last shock on 09/17/2024 CAD s/p CABG in 2011 Heart cath 2021 with patent OTTO-LAD and SVG to OM< occluded VG to PDA Severe MR s/p MV clip 02/18/2024 History of LV thrombus 03/29/2024 Patient started on Bumex and milrinone drip and today milrinone drip on hold and patient switched to intermittent Bumex Continue also Toprol-XL BMP of 4,437 with high-sensitivity troponin of 351 Repeat echo showed EF 5% with moderate to severe TR and moderate MR with evidence of Mitral Clip Palliative care consult discussed goals of cares and patient remain full code Assessment & Plan (03/13/2025 12:15 PM EDT): Patient known to have ischemic cardiomyopathy 5% status post AICD based on the last echo 10/05/2024 History of v.tach with ICD shock x2, last shock on 09/17/2024 CAD s/p CABG in 2011 Heart cath 2021 with patent OTTO-LAD and SVG to OM< occluded VG to PDA Severe MR s/p MV clip 02/18/2024 History of LV thrombus 03/29/2024 Patient started on Bumex and milrinone drip and today milrinone drip on hold and patient switched to intermittent Bumex Continue also Toprol-XL BMP of 4,437 with high-sensitivity troponin of 351 Repeat echo showed EF 5% with moderate to severe TR and moderate MR with evidence of Mitral Clip Palliative care consult discussed goals of cares and patient remain full code Assessment & Plan (03/12/2025 4:29 PM EDT): Patient known to have ischemic cardiomyopathy 5% status post AICD based on the last echo 10/05/2024 History of v.tach with ICD shock x2, last shock on 09/17/2024 CAD s/p CABG in 2011 Heart cath 2021 with patent OTTO-LAD and SVG to OM< occluded VG to PDA Severe MR s/p MV clip 02/18/2024 History of LV thrombus 03/29/2024 Patient started on Bumex and milrinone drip and today milrinone drip on hold and patient switched to intermittent Bumex Continue also Toprol-XL BMP of 4,437 with high-sensitivity troponin of 351 Repeat echo showed EF 5% with moderate to severe TR and moderate MR with evidence of Mitral Clip Palliative care consult discussed goals of cares and patient remain full code Assessment & Plan (03/11/2025 2:32 PM EDT): Patient known to have ischemic cardiomyopathy 5% status post AICD based on the last echo 10/05/2024 History of v.tach with ICD shock x2, last shock on 09/17/2024 CAD s/p CABG in 2011 Heart cath 2021 with patent OTTO-LAD and SVG to OM< occluded VG to PDA Severe MR s/p MV clip 02/18/2024 History of LV thrombus 03/29/2024 Patient started on Bumex and milrinone drip and today milrinone drip on hold and patient switched to intermittent Bumex Continue also Toprol-XL BMP of 4,437 with high-sensitivity troponin of 351 Repeat echo showed EF 5% with moderate to severe TR and moderate MR with evidence of Mitral Clip Palliative care consult discussed goals of cares and patient remain full code Assessment & Plan (03/10/2025 3:11 PM EDT): Patient known to have ischemic cardiomyopathy 5% status post AICD based on the last echo 10/05/2024 History of v.tach with ICD shock x2, last shock on 09/17/2024 CAD s/p CABG in 2012 Heart cath 2021 with patent OTTO-LAD and SVG to OM< occluded VG to PDA Severe MR s/p MV clip 02/18/2024 History of LV thrombus 03/29/2024 Patient started on Bumex and milrinone drip and today milrinone drip on hold and patient switched to intermittent Bumex Continue also Toprol-XL BMP of 4,437 with high-sensitivity troponin of 351 Repeat echo showed EF 5% with moderate to severe TR and moderate MR with evidence of Mitral Clip Palliative care consult discussed goals of cares and patient remain full code Assessment & Plan (03/09/2025 1:05 PM EDT): Patient known to have ischemic cardiomyopathy 5% status post AICD based on the last echo 10/05/2024 History of v.tach with ICD shock x2, last shock on 09/17/2024 CAD s/p CABG in 2012 Heart cath 2021 with patent OTTO-LAD and SVG to OM< occluded VG to PDA Severe MR s/p MV clip 02/18/2024 History of LV thrombus 03/29/2024 Patient switched to Bumex and milrinone drip and Aldactone on hold Continue also Toprol-XL BMP of 4,437 with high-sensitivity troponin of 351 Repeat echo showed EF 5% with moderate to severe TR and moderate MR with evidence of Mitral Clip Palliative care consult discussed goals of cares and patient remain full code Assessment & Plan (03/08/2025 2:20 PM EDT): Patient known to have ischemic cardiomyopathy 5% status post AICD based on the last echo 10/05/2024 History of v.tach with ICD shock x2, last shock on 09/17/2024 CAD s/p CABG in 2011 Heart cath 2021 with patent OTTO-LAD and SVG to OM< occluded VG to PDA Severe MR s/p MV clip 02/18/2024 History of LV thrombus 03/29/2024 Patient switched to Bumex and milrinone drip and Aldactone on hold Continue also Toprol-XL BMP of 4,437 with high-sensitivity troponin of 351 Repeat echo showed EF 5% with moderate to severe TR and moderate MR with evidence of Mitral Clip Palliative care consult discussed goals of cares and patient remain full code Assessment & Plan (03/07/2025 11:59 AM EDT): Patient known to have ischemic cardiomyopathy 5% status post AICD based on the last echo 10/05/2024 History of v.tach with ICD shock x2, last shock on 09/17/2024 CAD s/p CABG in 2011 Heart cath 2021 with patent OTTO-LAD and SVG to OM< occluded VG to PDA Severe MR s/p MV clip 02/18/2024 History of LV thrombus 03/29/2024 Patient switched to Bumex and milrinone drip and Aldactone on hold Continue also Toprol-XL BMP of 4,437 with high-sensitivity troponin of 351 Repeat echo showed EF 5% with moderate to severe TR and moderate MR with evidence of Mitral Clip Palliative care consult discussed goals of cares Assessment & Plan (03/06/2025 12:17 PM EDT): Patient known to have ischemic cardiomyopathy 5% status post AICD based on the last echo 10/05/2024 History of v.tach with ICD shock x2, last shock on 09/17/2024 CAD s/p CABG in 2011 Heart cath 2021 with patent OTTO-LAD and SVG to OM< occluded VG to PDA Severe MR s/p MV clip 02/18/2024 History of LV thrombus 03/29/2024 Patient currently on Bumex 2 mg IV every 12 as well as Toprol-XL and Aldactone Patient likely will need right heart cath with [place] catheter as well as inotropic agent based on very severe low EF and acute on chronic kidney disease BMP of 4,437 with high-sensitivity troponin of 351 Repeat echo pending Cardiology input pending Patient likely will benefit from palliative care consult Assessment & Plan (03/05/2025 9:21 PM EDT): Strict I's and O's, daily weight Cardiology consult Will resume home dose of diuretics Acute kidney injury superimposed on CKD 10/15/2024 03/17/2025 Assessment & Plan (03/15/2025 4:04 PM EDT): 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 Baseline creatinine reported 2.0-2.4 and current creatinine 2.31 Elevated uric acid of 15.0 with repeat of 15.3, patient received 1 dose of Rasburicase Ultrasound was done and showed atrophic bilateral kidneys and comment of moderate volume abdominal ascites G6PD came back normal of 13.6 Appreciate nephrology input, continue to monitor Assessment & Plan (03/14/2025 11:12 AM EDT): 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 Baseline creatinine reported 2.0-2.4 and current creatinine 2.31 Elevated uric acid of 15.0 with repeat of 15.3, patient received 1 dose of Rasburicase Ultrasound was done and showed atrophic bilateral kidneys and comment of moderate volume abdominal ascites G6PD came back normal of 13.6 Appreciate nephrology input, continue to monitor Assessment & Plan (03/13/2025 12:15 PM EDT): 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 Baseline creatinine reported 2.0-2.4 and current creatinine 2.50 Elevated uric acid of 15.0 with repeat of 15.3, patient received 1 dose of Rasburicase Ultrasound was done and showed atrophic bilateral kidneys and comment of moderate volume abdominal ascites G6PD came back normal of 13.6 Appreciate nephrology input, continue to monitor Assessment & Plan (03/12/2025 4:29 PM EDT): 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 Baseline creatinine reported 2.0-2.4 and current creatinine 2.50 Elevated uric acid of 15.0 with repeat of 15.3, patient received 1 dose of Rasburicase Ultrasound was done and showed atrophic bilateral kidneys and comment of moderate volume abdominal ascites G6PD came back normal of 13.6 Appreciate nephrology input, continue to monitor Assessment & Plan (03/11/2025 2:32 PM EDT): 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 Baseline creatinine reported 2.0-2.4 and current creatinine 2.50 Elevated uric acid of 15.0 with repeat of 15.3, patient received 1 dose of Rasburicase Ultrasound was done and showed atrophic bilateral kidneys and comment of moderate volume abdominal ascites G6PD came back normal of 13.6 Appreciate nephrology input, continue to monitor Assessment & Plan (03/10/2025 3:11 PM EDT): 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 Baseline creatinine reported 2.0-2.4 and current creatinine 2.50 Elevated uric acid of 15.0 with repeat of 15.3, patient received 1 dose of Rasburicase Ultrasound was done and showed atrophic bilateral kidneys and comment of moderate volume abdominal ascites G6PD came back normal of 13.6 Appreciate nephrology input, continue to monitor Assessment & Plan (03/09/2025 1:05 PM EDT): 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 Baseline creatinine reported 2.0-2.4 and current creatinine 2.63 Elevated uric acid of 15.0 with repeat of 15.3, patient received 1 dose of Rasburicase Ultrasound was done and showed atrophic bilateral kidneys and comment of moderate volume abdominal ascites G6PD pending Appreciate nephrology input, continue to monitor Assessment & Plan (03/08/2025 2:20 PM EDT): 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 Baseline creatinine reported 2.0-2.4 and current creatinine 2.73 Elevated uric acid of 15.0 with repeat of 15.3, patient received 1 dose of Rasburicase Patient started on allopurinol once uric acid level normalized Ultrasound was done and showed atrophic bilateral kidneys and comment of moderate volume abdominal ascites G6PD pending Appreciate nephrology input, continue to monitor Assessment & Plan (03/07/2025 11:59 AM EDT): 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 Baseline creatinine reported 2.0-2.4 and current creatinine 3.18 Elevated uric acid of 15.0 with repeat of 15.3 patient asymptomatic Appreciate nephrology input, continue to monitor Assessment & Plan (03/06/2025 12:17 PM EDT): 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 Baseline creatinine reported 1.9-2.2 and current creatinine 3.09 Appreciate nephrology input Assessment & Plan (03/05/2025 9:21 PM EDT): Blood work ordered Nephrology consult MYLES (acute kidney injury) 11/25/2023 Heart failure with reduced ejection fraction 03/17/2025 NSTEMI (non-ST elevated myoc ardial infarction) 09/27/2023 03/17/2025 Acute on chronic combined sy stolic and diastolic congestive heart failure 09/03/202203/17 Paroxysmal tachycardia, unspecified 05/23/202210/1003/17/2025 Acute non-ST segment elevati on myocardial infarction 05/23/2022 03/17/2025 Atrial fibrillation and flutter 05/03/2012 03/17/2025 Overview (09/28/2023): Acute. Stable. Developed SVT day of surgery converted to SR on IV Amiodarone. Currently SR. Continue BB and PO Amio Taper. Encounters Date Type Department Care Team Description 04/08/2025 9:20 AM EDT Office Visit [facility] [place] [address] [place] [address] Conchita Rivera CNP Stage 3b chronic kidney disease (CMS/HCC) (Primary Dx); Chronic systolic heart failure (CMS/HCC); Abnormal liver enzymes 04/06/2025 Telephone [facility] [address] [facility] [address] Nidia Pa MA 03/26/2025 Telephone [facility] [address] [address] Radha Galindo MA 03/25/2025 Orders Only [facility] [address] [address] Nidia Pa MA Edema, unspecified type (Primary Dx) 03/24/2025 Refill [facility] [address] [facility] [address] Nidia Pa MA 03/24/2025 Orders Only [facility] [address] [facility] [address] Taylor Kendall MD 03/21/2025 2:53 PM EDT - 03/21/2025 5:34 PM EDT Emergency [facility] Emergency [address] [place] [id number] Juan R Alcantara DO Hematuria, unspecified type (Primary Dx); Urinary tract infection with hematuria, site unspecified Discharge Disposition: Home or Self Care (01) 03/21/2025 Travel 03/17/2025 3:40 PM EDT Office Visit [facility] [address] [address] Taylor Kendall MD Chronic systolic heart failure (CMS/HCC) (Primary Dx); Cardiomyopathy, ischemic; Coronary artery disease involving coronary bypass graft of unga heart without angina pectoris; S/P CABG (coronary artery bypass graft); Paroxysmal atrial fibrillation (CMS/HCC); NSVT (nonsustained ventricular tachycardia) (CMS/HCC); ICD (implantable cardioverter-defibril lator) discharge; Nonrheumatic mitral valve regurgitation; History of mitral valve repair; Cerebrovascular accident (CVA) due to occlusion of precerebral artery (CMS/HCC); Carotid stenosis, asymptomatic, left; Pure hypercholesterolemia; Stage 3b chronic kidney disease (CMS/HCC) 03/17/2025 Telephone [facility] Heart at [facility] [address] [place] [address] Nidia Pa MA 03/17/2025 Telephone [facility] Vascular Lab [address] [place] [address] Radha Dela Cruz RN HF post discharge call and inpatient survey sent. 03/05/2025 6:55 PM EDT - 03/16/2025 4:30 PM EDT Hospital Encounter [facility] [address] [place] [address] Edwardo De Jesus MD Saad, Hani, MD Acute on chronic congestive heart failure, unspecified heart failure type (CMS/HCC) (Primary Dx); Elevated troponin; Other ascites; Hyperkalemia; Acute kidney injury superimposed on CKD; Type 2 diabetes mellitus with stage 3 chronic kidney disease, unspecified whether intermission coordinator insulin use, unspecified whether stage 3a or 3b CKD (CMS/HCC); Acute on chronic combined systolic and diastolic congestive heart failure ([facility]); Presence of automatic (implantable) cardiac defibrillator; Cardiorenal syndrome with renal failure, stage 1-4 or unspecified chronic kidney disease, with heart failure ([facility]/HCC); Coronary artery disease involving coronary bypass graft of unga heart without angina pectoris; Primary hypertension; Acquired hypothyroidism; S/P CABG (coronary artery bypass graft); Acute HFrEF (heart failure with reduced ejection fraction) (CMS/HCC); Chronic HFrEF (heart failure with reduced ejection fraction) (CMS/HCC); Hypokalemia; Heart failure with reduced ejection fraction (CMS/HCC) Discharge Disposition: Home-Health Care [facility] () 03/05/2025 Travel from Last 3 Months Immunizations Immunization Administration Dates Next Due [facility] 06/13/2020 Family History Medical History Relation Name Comments Coronary artery disease Brother Coronary artery disease Father Relation Name Status Comments Brother Father Mother Social History Tobacco Use Types Packs/Day Years Used Date Smoking Tobacco: Former Cigarettes Smokeless Tobacco: Never Tobacco Cessation:Counseling Given: Not Answered Alcohol Use Standard Drinks/Week Comments Not Currently 0 (1 standard drink = 0.6 oz pur e alcohol) [facility] Utilities Answer Date [...] any time in the past 12 m [facility], were you homeless or living in a usp (including now)? No 03/05/2025 Hunger Vital Sign [...] Heterosexual or Straight 02/2025 2:54 PM EDT Last Filed Vital Signs Vital Sign Reading Time Taken Comments Blood Pressure 113/68 04/08/2025 9:27 AM EDT Pulse 73 04/08/2025 9:27 AM EDT Temperature 36.5 C (97.7 F) 03/21/2025 2:55 PM EDT Respiratory Rate 15 03/21/2025 5:33 PM EDT Oxygen Saturation 96% 04/08/2025 9:27 AM EDT Inhaled Oxygen Concentration - - Weight 72.6 kg (160 lb) 04/08/2025 9:27 AM EDT Height 182.9 cm (6') 04/08/2025 9:27 AM EDT Body Mass Index 21.7 04/08/2025 9:27 AM EDT Plan of Treatment Upcoming Encounters Date Type Department Care Team (Late st Contact Info) Description 04/26/2025 2:30 PM EDT Office Visit [facility] Heart at [facility] [address] [place] [address] Ozzie Crain MD [address] [facility] [place] [address] Health Maintenance Due Date Last Done Comments Medicare Annual Wellness (AWV) 1940 Diabetes: Retinopathy Screening 02/20/1952 Depression Screening 1954 Pneumococcal Vaccine: 50+ Years (1 of 2 - PCV) 1961 Adult Tetanus 02/20/1964 Zoster Vaccines (1 of 2) 02/20/1992 COVID-19 Vaccine (2023-2 5 season) 2024 Diabetes: Hemoglobin A1C 01/02/2025 025, 05/17/2022 Influenza Vaccine (#1) 2025 Fall Risk Screening 03/21/2026 03/21/2025 HIB Vaccines Aged Out No longer eligi ble based on patient's age to complete this topic HPV Vaccines Aged Out No longer eligi ble based on patient's age to complete this topic IPV Vaccines Aged Out No longer eligi ble based on patient's age to complete this topic Meningococcal B Vaccine Aged Out No l onger eligible based on patient's age to complete this topic Meningococcal Vaccine Aged Out No clary rika eligible based on patient's age to complete this topic Rotavirus Vaccines Aged Out No longer eligible based on patient's age to complete this topic Procedures Procedure Name Priority Date/Time Associated Diagnosis Comments URINALYSIS MICROSCOPIC WITH REFLEX CULTURE STAT 03/21/2025 3:33 PM EDT URINALYSIS WITH REFLEX CULTURE STAT 03/21/2025 3:33 PM EDT URINE CULTURE Routine 03/21/2025 3:33 PM EDT BASIC METABOLIC PANEL STAT Add-on 03/21/2025 3:16 PM EDT LIGHT GREEN TOP STAT 03/21/2025 3:16 PM EDT RAINBOW DRAW STAT 03/21/2025 3:16 PM EDT CBC WITH AUTO DIFFERENTIAL STAT 03/21/2025 3:16 PM EDT APTT STAT 03/21/2025 3:16 PM EDT PROTIME-INR STAT 03/21/2025 3:16 PM EDT CBC AND DIFFERENTIAL STAT 03/21/2025 3:16 PM EDT BASIC METABOLIC PANEL Pending Discharge 03/16/2025 4:05 AM EDT CBC Pending Discharge 03/16/2025 4:05 AM EDT MAGNESIUM Pending Discharge 03/16/2025 4:05 AM EDT BASIC METABOLIC PANEL Pending Discharge 03/15/2025 4:05 AM EDT CBC Pending Discharge 03/15/2025 4:05 AM EDT MAGNESIUM Pending Discharge 03/15/2025 4:05 AM EDT BASIC METABOLIC PANEL Pending Discharge 03/14/2025 4:18 AM EDT CBC Pending Discharge 03/14/2025 4:18 AM EDT MAGNESIUM Pending Discharge 03/14/2025 4:18 AM EDT BASIC METABOLIC PANEL Pending Discharge 03/13/2025 3:54 AM EDT CBC Pending Discharge 03/13/2025 3:54 AM EDT MAGNESIUM Pending Discharge 03/13/2025 3:54 AM EDT BASIC METABOLIC PANEL Pending Discharge 03/12/2025 5:50 AM EDT CBC Pending Discharge 03/12/2025 5:50 AM EDT MAGNESIUM Pending Discharge 03/12/2025 5:50 AM EDT BASIC METABOLIC PANEL Pending Discharge 03/11/2025 5:27 AM EDT CBC Pending Discharge 03/11/2025 5:27 AM EDT MAGNESIUM Pending Discharge 03/11/2025 5:27 AM EDT BASIC METABOLIC PANEL Routine 03/10/2025 4:18 AM EDT CBC Routine 03/10/2025 4:18 AM EDT MAGNESIUM Routine 03/10/2025 4:18 AM EDT HEPATIC FUNCTION PANEL Add-On 03/09/2025 8:11 AM EDT ELECTROLYTE PANEL Pending Discharge 03/09/2025 8:11 AM EDT LAVENDER TOP Routine 03/09/2025 3:53 AM EDT EXTRA TUBES Routine 03/09/2025 3:53 AM EDT BASIC METABOLIC PANEL Pending Discharge 03/09/2025 3:53 AM EDT MAGNESIUM Pending Discharge 03/09/2025 3:53 AM EDT ELECTROLYTE PANEL Pending Discharge 03/08/2025 11:26 PM EDT ELECTROLYTE PANEL Pending Discharge 03/08/2025 4:01 PM EDT VASC US LOWER EXTREMITY SEGMENTAL MARVEL Routine 03/08/2025 12:27 PM EDT ECG 12-LEAD Routine 03/08/2025 9:45 AM EDT URIC ACID Add-On 03/08/2025 5:45 AM EDT BASIC METABOLIC PANEL Pending Discharge 03/08/2025 5:45 AM EDT MAGNESIUM Pending Discharge 03/08/2025 5:45 AM EDT LAVENDER TOP Routine 03/08/2025 5:30 AM EDT EXTRA TUBES Routine 03/08/2025 5:30 AM EDT ELECTROLYTE PANEL Timed 03/07/2025 11: 31 PM EDT ELECTROLYTE PANEL Timed 03/07/2025 6:1 6 PM EDT GLUCOSE 6 PHOSPHATE DEHYDROGENASE Routine 03/07/2025 12:32 PM EDT ELECTROLYTE PANEL Timed 03/07/2025 11: 56 AM EDT BLOOD CULTURE Routine 03/07/2025 11:56 AM EDT BLOOD CULTURE Routine 03/07/2025 11:55 AM EDT POCT GLUCOSE METER UNSOLICITED RESULTS Routine 03/07/2025 11:06 AM EDT US RENAL COMPLETE Routine 03/07/2025 10: 56 AM EDT POCT GLUCOSE METER UNSOLICITED RESULTS Routine 03/07/2025 7:16 AM EDT HIGH SENSITIVITY TROPONIN I Add-On 03/07/2025 3:47 AM EDT MAGNESIUM Routine 03/07/2025 3:47 AM EDT URIC ACID Routine 03/07/2025 3:47 AM EDT CBC Routine 03/07/2025 3:47 AM EDT COMPREHENSIVE METABOLIC PANEL Routine 03/07/2025 3:47 AM EDT ELECTROLYTE PANEL Timed 03/07/2025 12: 05 AM EDT POCT GLUCOSE METER UNSOLICITED RESULTS Routine 03/06/2025 4:26 PM EDT URINALYSIS Routine 03/06/2025 12:19 PM EDT POCT GLUCOSE METER UNSOLICITED RESULTS Routine 03/06/2025 11:19 AM EDT LIMITED ECHO (TTE) W/ LIMITED DOPPLER, COLOR FLOW AND IMAGING AGENT Routine 03/06/2025 10:39 AM EDT ECG 12-LEAD Routine 03/06/2025 9:10 AM EDT POCT GLUCOSE METER UNSOLICITED RESULTS Routine 03/06/2025 9:07 AM EDT CBC Routine 03/06/2025 8:35 AM EDT BASIC METABOLIC PANEL Routine 03/06/2025 8:35 AM EDT IRON AND TIBC Routine 03/06/2025 8:35 AM EDT FERRITIN Routine 03/06/2025 8:35 AM EDT URIC ACID Routine 03/06/2025 8:35 AM EDT PTH, INTACT Routine 03/06/2025 8:35 AM EDT LAVENDER TOP Routine 03/06/2025 8:35 AM EDT EXTRA TUBES Routine 03/06/2025 8:35 AM EDT HIGH SENSITIVITY TROPONIN I Routine 03/06/2025 8:35 AM EDT HIGH SENSITIVITY TROPONIN I Add-On 03/05/2025 11:19 PM EDT TSH3 REFLEX TO FT4 Routine 03/05/2025 11 :19 PM EDT ECG 12-LEAD Routine 03/05/2025 10:45 PM EDT XR CHEST 1 VIEW Routine 03/05/2025 10:33 PM EDT CBC WITH AUTO DIFFERENTIAL Routine 03/05/2025 9:48 PM EDT HIGH SENSITIVITY TROPONIN I Routine 03/05/2025 9:48 PM EDT PROTIME-INR Routine 03/05/2025 9:48 PM EDT PHOSPHORUS Routine 03/05/2025 9:48 PM EDT MAGNESIUM Routine 03/05/2025 9:48 PM EDT COMPREHENSIVE METABOLIC PANEL Routine 03/05/2025 9:48 PM EDT CBC AND DIFFERENTIAL Routine 03/05/2025 9:48 PM EDT APTT Routine 03/05/2025 9:48 PM EDT B-TYPE NATRIURETIC PEPTIDE Routine 03/05/2025 9:48 PM EDT POCT GLUCOSE METER UNSOLICITED RESULTS Routine 03/05/2025 9:07 PM EDT HEMOGLOBIN A1C Pending Discharge 10/04/2024 3:08 AM EST from Last 3 Months or Most Recently Relevant to Health Maintenance Results * (ABNORMAL) Urinalysis microscopic with reflex culture (03/21/2025 3:33 PM EDT) RBC, Urine >20(A) None Seen, 0-2 /HPF 03/21/2025 3:56 PM EDT [facility] WBC, Urine 21-50(A) None Seen, 0-2 /HPF 03/21/2025 3:56 PM EDT [facility] Squamous Epithelial, Urine None Seen None Seen, Occasional , Few /LPF 03/21/2025 3:56 PM EDT [facility] Urine Urine specimen obtained by clean catch procedure / Unknown Non-blood Collection / Unknown 03/21/2025 3:33 PM EDT 03/21/2025 3:40 PM EDT Juan R Alcantara DO LAB URINE ORDERABLES Final Result [facility]) [address] [place] [address] * (ABNORMAL) Urinalysis with reflex culture (03/21/2025 3:33 PM EDT) Color, Urine Red(A) Colorless, Yellow, Light-Yello w 03/21/2025 3:56 PM EDT [facility]) Clarity, Urine Turbid(A) Clear 03/21/2025 3:56 PM EDT [facility]) pH, Urine 7.0 5.0 - 8.0 pH 03/21/2025 3:56 PM EDT [facility]) Leukocytes, Urine Unable to Perform Due to Color Interference Negative 03/21/2025 3:56 PM EDT [facility] Nitrite, Urine Unable to Perform Due to Color Interference Negative 03/21/2025 3:56 PM EDT [facility] Protein, Urine Unable to Perform Due to Color Interference Negative mg/dL 03/21/2025 3:56 PM EDT [facility]) Glucose, Urine Unable to Perform Due to Color Interference Normal mg/dL 03/21/2025 3:56 PM EDT [facility]) Bilirubin, Urine Unable to Perform Due to Color Interference Negative 03/21/2025 3:56 PM EDT [facility]) Specific Tillman, Urine 1.007(L) 1.010 - 1.030 03/21/2025 3:56 PM EDT [facility] Ketones, Urine Unable to Perform Due to Color Interference Negative mg/dL 03/21/2025 3:56 PM EDT [facility] Blood, Urine Unable to Perform Due to Color Interference Negative 03/21/2025 3:56 PM EDT [facility] Urobilinogen, Urine Unable to Perform Due to Color Interference Normal mg/dL 03/21/2025 3:56 PM EDT [facility]) Urine Urine specimen obtained by clean catch procedure / Unknown Non-blood Collection / Unknown 03/21/2025 3:33 PM EDT 03/21/2025 3:40 PM EDT us Juan R Alcantara DO LAB URINE ORDERABLES Final Result [facility] [address] [place] [address] * Urine culture, routine (03/21/2025 3:33 PM EDT) Urine Culture No growth at 48 hours KYAW 03/23/2025 7:53 AM EDT [facility] Urine Urine specimen obtained by clean catch procedure / Unknown Non-blood Collection / Unknown 03/21/2025 3:33 PM EDT 03/21/2025 3:40 PM EDT us Juan R Alcantara DO LAB MICROBIOLOGY - GENERAL ORDERABLES Final Result [facility]) [address] [place] [address] * (ABNORMAL) CBC auto differential (03/21/2025 3:16 PM EDT) Only the most recent of2 resultswithin the time period is included. Pathologist [facility] Auto WBC 4.12 4.00 - 10.60 10*3/uL 03/21/2025 3:51 PM EDT [facility] RBC 4.05(L) 4.20 - 5.70 10*6/uL 03/21/2025 3:51 PM EDT [facility] Hemoglobin 12.2(L) 13.0 - 17.0 g/dL 03/21/2025 3:51 PM EDT [facility]) Hematocrit 39.6 39.0 - 50.0 % 03/21/2025 3:51 PM EDT [facility] MCV 97.8 82.0 - 98.0 fL 03/21/2025 3:51 PM EDT [facility] MCH 30.1 27.0 - 33.0 pg 03/21/2025 3:51 PM EDT [facility] ([facility]) MCHC 30.8(L) 32.0 - 35.0 g/dL 03/21/2025 3:51 PM EDT [facility] ([facility]) RDW 16.0(H) 11.5 - 15.0 % 03/21/2025 3:51 PM EDT [facility] ([facility]) Neutrophils % 55.9 40.0 - 72.0 % 03/21/2025 3:51 PM EDT [facility] ([facility]) Lymphocytes % 20.6 20.0 - 45.0 % 03/21/2025 3:51 PM EDT [facility] ([facility]) Monocytes % 14.3(H) 5.0 - 12.0 % 03/21/2025 3:51 PM EDT [facility] ([facility]) Eosinophils % 8.0(H) 0.0 - 6.0 % 03/21/2025 3:51 PM T [facility] ([facility]) Basophils % 0.7 0.0 - 1.0 % 03/21/2025 3:51 PM T [facility] ([facility]) Neutrophils Absolute 2.30 1.60 - 7.60 10*3/uL 03/21/2025 3:51 PM EDT [facility] ([facility]) Lymphocytes Absolute 0.85(L) 1.20 - 4.00 10*3/uL 03/21/2025 3:51 PM T [facility] ([facility]) Monocytes Absolute 0.59 0.10 - 1.00 10*3/uL 03/21/2025 3:51 PM EDT [facility] ([facility]) Eosinophils Absolute 0.33 0.00 - 0.50 10*3/uL 03/21/2025 3:51 PM T [facility] ([facility]) Basophils Absolute 0.03 0.00 - 0.20 10*3/uL 03/21/2025 3:51 PM T [facility] ([facility]) Platelets 196 150 - 400 10*3/uL 03/21/2025 3:51 PM T [facility] ([facility]) nRBC % 0.0 0 % 03/21/2025 3:51 PM T [facility] ([facility]) Immature Granulocytes % 0.5 0.0 - 1.0 % 03/21/2025 3:51 PM T [facility] ([facility]) Immature Granulocytes Absolute 0.02 0.00 - 0.20 10*3/uL 03/21/2025 3:51 PM T [facility] ([facility]) Blood Venous blood specimen / Unknown Venipuncture / Unknown 03/21/2025 3:16 PM EDT 03/21/2025 3:43 PM EDT [facility] BLOOD ORDERABLES Final Result Performing Organization Address City/[facility]/ZIP Co de Phone Number [facility]) [address] [place] [address] * Light Green Top (03/21/2025 3:16 PM EDT) Extra Tube Hold for add-ons. 03/21/2025 5:01 PM EDT [facility] ([facility]) Comment:Auto resulted. Blood Venous blood specimen / Unknown Venipuncture / Unknown 03/21/2025 3:16 PM EDT 03/21/2025 3:42 PM EDT [facility] BLOOD ORDERABLES Final Result Performing Organization Address [facility] Phone Number [facility]) [address] [place] [address] * APTT (03/21/2025 3:16 PM EDT) Only the most recent of2 resultswithin the time period is included. aPTT 29.5 25.0 - 35.0 Seconds 03/21/2025 3:56 PM EDT [facility]) Comment:Clinical significanc e of the APTT is questionable in the presence of heparin. Blood Venous blood specimen / Unknown Venipuncture / Unknown 03/21/2025 3:16 PM EDT 03/21/2025 3:40 PM EDT [facility] BLOOD ORDERABLES Final Result Performing Organization Address City/[facility] Co de Phone Number [facility]) [address] [place] [address] * (ABNORMAL) Protime-INR (03/21/2025 3:16 PM EDT) Only the most recent of2 resultswithin the time period is included. Protime 17.6(H) 12.3 - 14.8 Seconds 03/21/2025 3:55 PM EDT [facility] ([facility]) INR 1.44(H) 0.90 - 1.10 03/21/2025 3:55 PM EDT [facility] ([facility]) Comment: [facility] RECOMMENDED INR FOR WARFARIN THERAPY CONDITION INR PROPHYLAXIS OF VENOUS THROMBOSIS 2-3 (HIGH-RISK SURGERY) TREATMENT OF VENOUS THROMBOSIS 2-3 TREATMENT OF PULMONARY EMBOLISM 2-3 PREVENTION OF SYSTEMIC EMBOLISM: 2-3 ACUTE MYOCARDIAL INFARCTION TISSUE HEART VALVES VALVULAR HEART DISEASE ATRIAL FIBRILLATION RECURRENT SYSTEMIC EMBOLISM MECHANICAL HEART VALVE 2.5-3.5 FROM: ORAL ANTICOAGULANTS. MECHANISM OF ACTION, CLINICAL EFFECTIVENESS, AND OPTIMAL THERAPEUTIC RANGE. CHEST 1995;108:231S-246S. Blood Venous blood specimen / Unknown Venipuncture / Unknown 03/21/2025 3:16 PM EDT 03/21/2025 3:40 PM EDT Juan R Alcantara DO LAB BLOOD ORDERABLES Final Result [facility] ([facility]) [address] [place] [id number] * (ABNORMAL) Basic metabolic panel (03/21/2025 3:16 PM EDT) Only the most recent of11 resultswithin the time period is included. Sodium 134(L) 136 - 145 mmol/L 03/21/2025 5:00 PM EDT [facility] ([facility]) Potassium 4.5 3.5 - 5.1 mmol/L 03/21/2025 5:00 PM EDT [facility] ([facility]) Chloride 102 98 - 107 mmol/L 03/21/2025 5:00 PM EDT [facility] ([facility]) CO2 25 21 - 31 mmol/L 03/21/2025 5:00 PM EDT [facility] ([facility]) BUN 64(H) 7 - 25 mg/dL 03/21/2025 5:00 PM EDT [facility] ([facility]) Creatinine 1.98(H) 0.70 - 1.30 mg/dL 03/21/2025 5:00 PM EDT [facility] ([facility]) Glucose 89 70 - 100 mg/dL 03/21/2025 5:00 PM T [facility] ([facility]) Calcium 9.3 8.6 - 10.3 mg/dL 03/21/2025 5:00 PM EDT [facility] ([facility]) Anion Gap 12 7 - 20 mmol/L 03/21/2025 5:00 PM T [facility] ([facility]) eGFR 32.9(L) >60.0 mL/min/1. 73m*2 03/21/2025 5:00 PM T [facility] ([facility]) Comment:[facility] s estimated glomerular filtration rate (eGFR) will no longer include consideration of race in its calculation. The [employer] s eGFR Task Force developed new recommendations for [...] disproportionately affect any one group of individuals. BUN/Creatinine Ratio 32.3 07/0 02/2025 5:00 PM T [facility] ([facility]) Blood Venous blood specimen / Unknown Venipuncture / Unknown 03/21/2025 3:16 PM EDT 03/21/2025 3:42 PM EDT Juan R Alcantara DO LAB BLOOD ORDERABLES Final Result [facility] ([facility]) [address] [place] [address] * (ABNORMAL) CBC (03/16/2025 4:05 AM EDT) Only the most recent of9 resultswithin the time period is included. Auto WBC 4.37 4.00 - 10.60 10*3/uL 03/16/2025 4:58 AM EDT [facility] ([facility]) RBC 4.21 4.20 - 5.70 10*6/uL 03/16/2025 4:58 AM EDT [facility] ([facility]) Hemoglobin 12.7(L) 13.0 - 17.0 g/dL 03/16/2025 4:58 AM EDT [facility] ([facility]) Hematocrit 40.3 39.0 - 50.0 % 03/16/2025 4:58 AM EDT [facility] ([facility]) MCV 95.7 82.0 - 98.0 fL 03/16/2025 4:58 AM EDT [facility] ([facility]) MCH 30.2 27.0 - 33.0 pg 03/16/2025 4:58 AM EDT [facility] ([facility]) MCHC 31.5(L) 32.0 - 35.0 g/dL 03/16/2025 4:58 AM EDT [facility] ([facility]) RDW 16.0(H) 11.5 - 15.0 % 03/16/2025 4:58 AM EDT [facility] ([facility]) Platelets 162 150 - 400 10*3/uL 03/16/2025 4:58 AM EDT [facility] ([facility]) Blood Venous blood specimen / Unknown Venipuncture / Unknown 03/16/2025 4:05 AM EDT 03/16/2025 4:44 AM EDT Jose Vargas MD LAB BLOOD ORDERABLES Final Result [facility]) [address] [place] [address] * Magnesium (03/16/2025 4:05 AM EDT) Only the most recent of11 resultswithin the time period is included. Magnesium 2.4 1.9 - 2.7 mg/dL 03/16/2025 5:16 AM EDT [facility] ([facility]) Blood Venous blood specimen / Unknown Venipuncture / Unknown 03/16/2025 4:05 AM EDT 03/16/2025 4:43 AM EDT us Tino Borja MD LAB BLOOD ORDERABLES Final Resul t [facility] ([facility]) [address] [place] [address] * (ABNORMAL) Hepatic function panel (03/09/2025 8:11 AM EDT) Total Bilirubin 1.4(H) 0.3 - 1.0 mg/dL 03/09/2025 9:59 AM EDT [facility] ([facility]) Bilirubin, Direct 0.6(H) 0 - 0.2 mg/dL 03/09/2025 9:59 AM EDT [facility] ([facility]) Alkaline Phosphatase 129(H) 34 - 104 U/L 03/09/2025 9:59 AM EDT [facility] ([facility]) AST 29 13 - 39 U/L 03/09/2025 9:59 AM EDT [facility] ([facility]) ALT (SGPT) 14 7 - 52 U/L 03/09/2025 9:59 AM EDT [facility] ([facility]) Total Protein 6.4 6.0 - 8.3 g/dL 03/09/2025 9:59 AM EDT [facility] ([facility]) Albumin 3.2(L) 3.5 - 5.7 g/dL 03/09/2025 9:59 AM EDT [facility] ([facility]) Blood Venous blood specimen / Unknown Venipuncture / Unknown 03/09/2025 8:11 AM EDT 03/09/2025 8:20 AM EDT us Jose Vargas MD LAB BLOOD ORDERABLES Final Result [facility] ([facility]) [address] [place] [address] * (ABNORMAL) Electrolyte panel (03/09/2025 8:11 AM EDT) Only the most recent of7 resultswithin the time period is included. Sodium 136 136 - 145 mmol/L 03/09/2025 8:44 AM EDT [facility] ([facility]) Potassium 3.7 3.5 - 5.1 mmol/L 03/09/2025 8:44 AM EDT [facility]) Chloride 90(L) 98 - 107 mmol/L 03/09/2025 8:44 AM EDT [facility]) CO2 38(H) 21 - 31 mmol/L 03/09/2025 8:44 AM EDT [facility] ([facility]) Anion Gap 12 7 - 20 mmol/L 03/09/2025 8:44 AM EDT [facility] ([facility]) Blood Venous blood specimen / Unknown Venipuncture / Unknown 03/09/2025 8:11 AM EDT 03/09/2025 8:20 AM EDT us Tino Borja MD LAB BLOOD ORDERABLES Final Resul t [facility] ([facility]) [address] [place] [address] * Lavender Top (03/09/2025 3:53 AM EDT) Only the most recent of3 resultswithin the time period is included. Extra Tube Hold for add-ons. 03/09/2025 6:01 AM EDT [facility] ([facility]) Comment:Auto resulted. Blood Venous blood specimen / Unknown Venipuncture / Unknown 03/09/2025 3:53 AM EDT 03/09/2025 4:32 AM EDT us Troy Agosto MD LAB BLOOD ORDERABLES Final Resul t [facility] ([facility]) [address] [place] [address] * [facility] US LOWER EXTREMITY SEGMENTAL MARVEL (03/08/2025 12:27 PM EDT) Anatomical Region Laterality Modality Ultrasound 03/08/2025 12:2 4 PM EDT Impressions 03/08/2025 2:49 PM EDT Notes: Indications; Diminished pulses or claudication, arm Right: Limited exam due to patient excessive movement and patient positioning. Mildly abnormal PVR waveform contour at the thigh, calf and ankle. Multiphasic with diastolic flow reversal PT and DP CW Doppler waveforms. Borderline normal MARVEL (0.90-0.99). DP MARVEL is 0.79; PT MARVEL is 0.93. Normal TBI (>0.75). TBI is 0.88. Left: Limited exam due to patient excessive movement and patient positioning. Mildly abnormal PVR waveform contour at the thigh, calf and ankle. Multiphasic with diastolic flow reversal PT and DP CW Doppler waveforms. Mild occlusion or stenosis MARVEL (0.6-0.89). DP MARVEL is 0.81; PT MARVEL is 0.68. Normal TBI (>0.75).TBI is 1.12. Notes: Indications; Diminished pulses or claudication, arm Right: Limited exam due to patient excessive movement and patient positioning. Mildly abnormal PVR waveform contour at the thigh, calf and ankle. Multiphasic with diastolic flow reversal PT and DP CW Doppler waveforms. Borderline normal MARVEL (0.90-0.99). DP MARVEL is 0.79; PT MARVEL is 0.93. Normal TBI (>0.75). TBI is 0.88. Left: Limited exam due to patient excessive movement and patient positioning. Mildly abnormal PVR waveform contour at the thigh, calf and ankle. Multiphasic with diastolic flow reversal PT and DP CW Doppler waveforms. Mild occlusion or stenosis MARVEL (0.6-0.89). DP MARVEL is 0.81; PT MARVEL is 0.68. Normal TBI (>0.75).TBI is 1.12. Conclusions: Limited exam due to patient excessive movement and patient positioning. Normal MARVEL right leg with mild arterial occlusive disease left leg Narrative 03/08/2025 2:49 PM EDT Procedure: The pressures in the lower extremities as well as PVR's were evaluated at different segments including the thigh area, below the knee, ankle and the great toe using 3 cuff method. The Doppler waveform was evaluated at the dorsal pedis and posterior tibial arteries. Procedure: The pressures in the lower extremities as well as PVR's were evaluated at different segments including the thigh area, below the knee, ankle and the great toe using 3 cuff method. The Doppler waveform was evaluated at the dorsal pedis and posterior tibial arteries. Procedure Note Jenni Locke MD - 03/08/2025 Procedure: The pressures in the lower extremities as well as PVR's wereevaluated at different segments including the thigh area, below the knee,ankle and the great toe using 3 cuff method. The Doppler waveform wasevaluated at the dorsal pedis and posterior tibial arteries. Procedure: The pressures in the lower extremities as well as PVR's wereevaluated at different segments including the thigh area, below the knee,ankle and the great toe using 3 cuff method. The Doppler waveform wasevaluated at the dorsal pedis and posterior tibial arteries. IMPRESSION: Notes: Indications; Diminished pulses or claudication, arm Right: Limited exam due to patient excessive movement and patientpositioning. Mildly abnormal PVR waveform contour at the thigh, calf andankle. Multiphasic with diastolic flow reversal PT and DP CW Dopplerwaveforms. Borderline normal MARVEL (0.90-0.99). DP MARVEL is 0.79; PT MARVEL is0.93. Normal TBI (>0.75). TBI is 0.88. Left: Limited exam due to patient excessive movement and patientpositioning. Mildly abnormal PVR waveform contour at the thigh, calf andankle. Multiphasic with diastolic flow reversal PT and DP CW Dopplerwaveforms. Mild occlusion or stenosis MARVEL (0.6-0.89). DP MARVEL is 0.81; PTABI is 0.68. Normal TBI (>0.75).TBI is 1.12. Notes: Indications; Diminished pulses or claudication, arm Right: Limited exam due to patient excessive movement and patientpositioning. Mildly abnormal PVR waveform contour at the thigh, calf andankle. Multiphasic with diastolic flow reversal PT and DP CW Dopplerwaveforms. Borderline normal MARVEL (0.90-0.99). DP MARVEL is 0.79; PT MARVEL is0.93. Normal TBI (>0.75). TBI is 0.88. Left: Limited exam due to patient excessive movement and patientpositioning. Mildly abnormal PVR waveform contour at the thigh, calf andankle. Multiphasic with diastolic flow reversal PT and DP CW Dopplerwaveforms. Mild occlusion or stenosis MARVEL (0.6-0.89). DP MARVEL is 0.81; PTABI is 0.68. Normal TBI (>0.75).TBI is 1.12. Conclusions: Limited exam due to patient excessive movement and patientpositioning. 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 Ventricular Rate 79 BPM GE MUSE QRS DURATION 126 ms GE MUSE QT Interval 410 ms GE MUSE QTC CALCULATION(BAZE TT) 470 ms GE MUSE R-Verdon -11 degrees GE MUSE T Wave Verdon 188 degrees GE MUSE 03/08/2025 9:29 AM EDT 03/08/2025 5:08 PM EDT Impressions GE MUSE - 03/08/2025 5:08 PM EDT Wide QRS rhythm with occasional Premature ventricular complexes Non-specific intra-ventricular conduction block Minimal voltage criteria for LVH, may be normal variant ( Robert product ) Cannot rule out Septal infarct , age undetermined Abnormal ECG When compared with ECG of 06-MAR-2025 09:06, (unconfirmed) Wide QRS rhythm has replaced Atrial flutter Confirmed by Brent ECHEVARRIA, CAYDEN Thayer ([id number]) on 03/08/2025 5:08:46 PM Narrative Procedure Note Cayden Echevarria MD - 03/08/2025 IMPRESSION: Wide QRS rhythm with occasional Premature ventricular complexes Non-specific intra-ventricular conduction block Minimal voltage criteria for LVH, may be normal variant ( [place] product ) Cannot rule out Septal infarct , age undetermined Abnormal ECG When compared with ECG of 06-MAR-2025 09:06, (unconfirmed) Wide QRS rhythm has replaced Atrial flutter Confirmed by Brent ECHEVARRIA, CAYDEN Thayer ([id number]) on 03/08/2025 5:08:46 PM us Cha Farley MD ECG ORDERABLES Final Re sult GE MUSE * (ABNORMAL) Uric acid (03/08/2025 5:45 AM EDT) Only the most recent of3 resultswithin the time period is included. Uric Acid 8.8(H) 4.4 - 7.6 mg/dL 03/08/2025 9:12 AM EDT [facility] ([facility]) Blood Venous blood specimen / Unknown Venipuncture / Unknown 03/08/2025 5:45 AM EDT 03/08/2025 5:50 AM EDT us Jose Vargas MD LAB BLOOD ORDERABLES Final Result [facility] ([facility]) [address] [place] [address] * Glucose 6 phosphate dehydrogenase (03/07/2025 12:32 PM EDT) Peagciy-5-Iapjeeej e Dehydrogenase 13.6 9.9 - 16.6 U/g Hb 03/10/2025 11:03 AM EDT [facility] ([facility]) Comment: Performed By: [facility] [address] [place] [id number] [employer] Window Tinter: Leonardo Bustillo MD, PhD CLIA Number: [id number] Blood Venous blood specimen / Unknown Venipuncture / Unknown 03/07/2025 12:32 PM EDT 03/07/2025 12:54 PM EDT us Tino Borja MD LAB BLOOD ORDERABLES Final Resul t [facility] ([facility]) [address] [place] [address] * Blood culture, peripheral #2 (03/07/2025 11:56 AM EDT) Only the most recent of2 resultswithin the time period is included. Blood Culture No growth at 5 days KYAW 03/12/2025 1:01 PM EDT [facility] ([facility]) Blood Venous blood specimen / Unknown Venipuncture / Unknown 03/07/2025 11:56 AM EDT 03/07/2025 12:16 PM EDT us Troy Agosto MD LAB MICROBIOLOGY - GENERAL ORDER SHEILA Final Result Performing Organization Address [facility]/ZIP Co de Phone Number [facility] ([facility]) [address] [place] [address] * POCT glucose meter (03/07/2025 11:06 AM EDT) Only the most recent of6 resultswithin the time period is included. Glucose POC 103 70 - 105 mg/dL 03/07/2025 11:16 AM EDT [facility] ([facility]) Comment:isegura2 Blood Capillary blood specimen / Unknown 03/07/2025 11:06 AM EDT 03/07/2025 11:16 AM EDT Narrative [facility] ([facility]) - 03/07/2025 11:16 AM EDT Waived Testing in the ED is performed under the ED CLIA certificate #[id number]. us Troy Agosto MD LAB BLOOD ORDERABLES Final Resul t [facility] ([facility]) [address] [place] [address] * US renal complete (03/07/2025 10:56 AM EDT) Anatomical Region Laterality Modality Kidney Ultrasound 03/07/2025 12:0 1 PM EDT Impressions 03/07/2025 12:09 PM EDT 1. Atrophic bilateral kidneys. 2. Increased right renal cortical echogenicity likely reflects chronic medical renal disease. 3. No hydronephrosis. 4. Benign bilateral renal cysts requiring no further follow-up. 5. Moderate post-void residual bladder volume. 6. Moderate volume abdominal ascites. Electronically signed: Hailey Norris. Narrative 03/07/2025 12:09 PM EDT US RENAL COMPLETE 03/07/2025 10:29 AM CLINICAL INFORMATION: MYLES. Inability to urinate. COMPARISON: CT abdomen/pelvis dated 09/29/24. FINDINGS: RIGHT KIDNEY: Length: 9.6 cm. Cortical Thickness/Echogenicity: Normal thickness, mildly echogenic Vascularity: Normal Hydronephrosis: None Calculus: None Mass: None Other: Anechoic benign simple cyst measures 1.1 x 1.6 x 1.2 cm, better characterized on prior CT, requiring no further follow-up. Suboptimal evaluation of the left kidney due to overlying bowel gas. LEFT KIDNEY: Length: 9.0 cm. Cortical Thickness/Echogenicity: Normal thickness Vascularity: Normal Hydronephrosis: None Calculus: None Mass: None Other: Anechoic benign simple cyst measures 1.6 x 1.0 x 1.1 cm, better characterized on prior CT, requiring no further follow-up. URINARY BLADDER: Normal morphology. Bilateral ureteral jets visualized. Pre-void volume: 307 ml Post void volume: 68 mL. OTHER: Moderate volume abdominal ascites. Procedure Note Hailey Norris MD - 03/07/2025 US RENAL COMPLETE 03/07/2025 10:29 AM CLINICAL INFORMATION: MYLES. Inability to urinate. COMPARISON: CT abdomen/pelvis dated 09/29/24. FINDINGS: RIGHT KIDNEY: Length: 9.6 cm. Cortical Thickness/Echogenicity: Normal thickness, mildly echogenic Vascularity: Normal Hydronephrosis: None Calculus: None Mass: None Other: Anechoic benign simple cyst measures 1.1 x 1.6 x 1.2 cm, better characterized on prior CT, requiring no further follow-up. Suboptimal evaluation of the left kidney due to overlying bowel gas. LEFT KIDNEY: Length: 9.0 cm. Cortical Thickness/Echogenicity: Normal thickness Vascularity: Normal Hydronephrosis: None Calculus: None Mass: None Other: Anechoic benign simple cyst measures 1.6 x 1.0 x 1.1 cm, better characterized on prior CT, requiring no further follow-up. URINARY BLADDER: Normal morphology. Bilateral ureteral jets visualized. Pre-void volume: 307 ml Post void volume: 68 mL. OTHER: Moderate volume abdominal ascites. IMPRESSION: 1.Atrophic bilateral kidneys. 2.Increased right renal cortical echogenicity likely reflects chronic medical renal disease. 3.No hydronephrosis. 4.Benign bilateral renal cysts requiring no further follow-up. 5.Moderate post-void residual bladder volume. 6.Moderate volume abdominal ascites. Electronically signed: Hailey Norris. us Tino Borja MD IMG US PROCEDURES Final Result * (ABNORMAL) High Sensitivity Troponin I (03/07/2025 3:47 AM EDT) Only the most recent of4 resultswithin the time period is included. Pathologist [facility] High Sensitivity Troponin I 429(HH) <20 ng/L 03/07/2025 8:46 AM EDT [facility] ([facility]) Blood Venous blood specimen / Unknown Venipuncture / Unknown 03/07/2025 3:47 AM EDT 03/07/2025 3:58 AM EDT us Troy Agosto MD LAB BLOOD ORDERABLES Final Resul t [facility] ([facility]) [address] [place] [address] * (ABNORMAL) Comprehensive metabolic panel (03/07/2025 3:47 AM EDT) Only the most recent of2 resultswithin the time period is included. Pathologist [facility] Sodium 138 136 - 145 mmol/L 03/07/2025 4:29 AM EDT [facility] ([facility]) Potassium 3.0(L) 3.5 - 5.1 mmol/L 03/07/2025 4:29 AM T [facility] ([facility]) Chloride 96(L) 98 - 107 mmol/L 03/07/2025 4:29 AM T [facility] ([facility]) CO2 30 21 - 31 mmol/L 03/07/2025 4:29 AM [facility] ([facility]) Anion Gap 15 7 - 20 mmol/L 03/07/2025 4:29 AM [facility] ([facility]) BUN 86(H) 7 - 25 mg/dL 03/07/2025 4:29 AM T [facility] ([facility]) Creatinine 3.18(H) 0.70 - 1.30 mg/dL 03/07/2025 4:29 AM [facility] ([facility]) BUN/Creatinine Ratio 27.0 02/15 4:29 AM [facility] ([facility]) Glucose 92 70 - 100 mg/dL 03/07/2025 4:29 AM [facility] ([facility]) Calcium 8.6 8.6 - 10.3 mg/dL 03/07/2025 4:29 AM [facility] ([facility]) AST 24 13 - 39 U/L 03/07/2025 4:29 AM [facility] ([facility]) ALT (SGPT) 13 7 - 52 U/L 03/07/2025 4:29 AM [facility] ([facility]) Alkaline Phosphatase 102 34 - 104 U/L 03/07/2025 4:29 AM [facility] ([facility]) Total Protein 6.2 6.0 - 8.3 g/dL 03/07/2025 4:29 AM [facility] ([facility]) Albumin 3.0(L) 3.5 - 5.7 g/dL 03/07/2025 4:29 AM [facility]) Total Bilirubin 1.3(H) 0.3 - 1.0 mg/dL 03/07/2025 4:29 AM [facility] ([facility]) eGFR 18.6(L) >60.0 mL/min/1. 73m*2 03/07/2025 4:29 AM [facility] ([facility]) Comment:The [facility] s estimated glomerular filtration rate (eGFR) will no longer include consideration of race in its calculation. The National Kid[employer] s eGFR Task Force developed new recommendations for [...] disproportionately affect any one group of individuals. Blood Venous blood specimen / Unknown Venipuncture / Unknown 03/07/2025 3:47 AM EDT 03/07/2025 3:58 AM EDT us Troy Agosto MD LAB BLOOD ORDERABLES Final Resul t [facility] ([facility]) [address] [place] [address] * (ABNORMAL) Urinalysis (03/06/2025 12:19 PM EDT) Color, Urine Colorless Colorless, Yellow, Light-Yellow 03/06/2025 12:36 PM EDT [facility] ([facility]) Clarity, Urine Clear Clear 03/06/2025 12:36 PM EDT [facility] ([facility]) pH, Urine 6.5 5.0 - 8.0 pH 03/06/2025 12:36 PM EDT [facility] ([facility]) Leukocytes, Urine Negative Negative 03/06/2025 12:36 PM EDT [facility] ([facility]) Nitrite, Urine Negative Negative 03/06/2025 12:36 PM EDT [facility] ([facility]) Protein, Urine Negative Negative mg/dL 03/06/2025 12:36 PM EDT [facility]) Glucose, Urine Normal Normal mg/dL 03/06/2025 12:36 PM EDT [facility] ([facility]) Bilirubin, Urine Negative Negative 03/06/2025 12:36 PM EDT [facility] ([facility]) Specific Tillman, Urine 1.007(L) 1.010 - 1.030 03/06/2025 12:36 PM EDT [facility]) Ketones, Urine Negative Negative mg/dL 03/06/2025 12:36 PM EDT [facility]) Blood, Urine Negative Negative 03/06/2025 12:36 PM EDT [facility]) Urobilinogen, Urine Normal Normal mg/dL 03/06/2025 12:36 PM EDT [facility]) Urine Urine specimen obtained by clean catch procedure / Unknown Non-blood Collection / Unknown 03/06/2025 12:19 PM EDT 03/06/2025 12:23 PM EDT Narrative [facility] ([facility]) - 03/06/2025 12:36 PM EDT Microscopics not performed on urines with negative chemical reactions unless requested on original order. us Carol Cohen MD LAB URINE ORDERABLES Fin al Result [facility] ([facility]) [address] [place] [address] * LIMITED ECHO (TTE) W/ LIMITED DOPPLER, COLOR FLOW AND IMAGING AGENT (03/06/2025 10:39 AM EDT) Anatomical Region Laterality Modality Other 03/06/2025 9:53 AM EDT Narrative 03/06/2025 4:26 PM EDT 1 1 [facility] Heart Station [address] [place] [address] [phone] (fax) Echocardiogram-[facility] Name: JOSÉ MIGUEL ANTONIO Study Date: 03/06/2025 09:53 AM B/P: 105 mmHg/70 mmHg HR: 98 bpm Date of : 1940 Location: [facility] Height: 72 in. Age: 85 year(s) Patient Room: [facility] Weight: 176 lb. Gender: Male Patient Status: InPt BSA: 2.02 m2 Indication: Systolic Heart Failure, H/O MitraClip, H/O LV thrombus, Pacemaker/AICD, H/O CABG Examination: Limited Echo/Limited Doppler, Color flow imaging, Lumason Contrast Image Quality: Poor sound transmission in apical views Patient Consent: Procedure explained to patient Exam Details Contrast: I.V. dose of Lumason Conclusions Left Ventricle: The left ventricle is severely enlarged. Global left ventricular systolic function is severely reduced. EF range is estimated at 5 % -10 %. Diffuse global hypokinesis. Left Ventricular Measurements LVEF, MOD4: 4 %. Right Ventricle: The right ventricle is enlarged. Right ventricular systolic function appears reduced. A pacemaker wire is seen in the right atrium and right ventricle. Doppler studies suggest severely elevated right sided pressures. Left Atrium: The left atrium is moderately enlarged. Mitral Valve: MitraClip is seen. Moderate mitral regurgitation. The mitral regurgitant jet is eccentric and directed posteriorly. Aortic Valve: Trivial aortic valve regurgitation. Tricuspid Valve: Moderate to severe tricuspid regurgitation. Pericardium: No pericardial effusion. A pleural effusion is seen. Overall Conclusions: Due to suboptimal imaging Lumason contrast was administered for opacification and better delineation of endocardial borders. Measurements Left Ventricle Label Value Normal Value LVDd, 2D 7 cm (4.2cm - 5.9cm) Right Atrium Label Value Normal Value RA Area 34 cm?? Tricuspid Valve Label Value Normal Value RA Pressure 15 mmHg RVSP 67 mmHg Great Vessels Label Value Normal Value IVC 2.4 cm (1.2cm - 2.3cm) Valvular Assessment LVOT 0.7 - 1.1 m/sec Aortic Valve 1.0 - 1.7 m/sec Mitral Valve 0.6 - 1.3 m/sec Tricuspid Valve 0.3 - 0.7 m/sec Pulmonic Valve 0.6 - 0.9 m/sec Regurgitation Trivial Mod Mod-Sev Trivial Findings Left Ventricle: The left ventricle is severely enlarged. Global left ventricular systolic function is severely reduced. EF range is estimated at 5 % -10 %. Diffuse global hypokinesis. Left Ventricular Measurements LVEF, MOD4: 4 %. Right Ventricle: The right ventricle is enlarged. Right ventricular systolic function appears reduced. A pacemaker wire is seen in the right atrium and right ventricle. Doppler studies suggest severely elevated right sided pressures. Left Atrium: The left atrium is moderately enlarged. Right Atrium: The right atrium is severely enlarged. Mitral Valve: MitraClip is seen. Moderate mitral regurgitation. The mitral regurgitant jet is eccentric and directed posteriorly. Aortic Valve: Mildly sclerosed aortic valve cusps. Trivial aortic valve regurgitation. Tricuspid Valve: Normal tricuspid valve. Moderate to severe tricuspid regurgitation. Pulmonic Valve: Normal pulmonary valve. Trivial pulmonary regurgitation. Great Vessels: IVC: The IVC is dilated. There is no inspiratory collapse of the IVC. Pericardium: No pericardial effusion. A pleural effusion is seen. Procedure Staff Reading Group: [facility] Referring Physician: FRANCISCA SERRANO Information Security: Janice Draper RDCS, RVT, RN, BSN Ordering Physician: TROY AGOSTO Procedure Note Taylor Kendall MD - 03/06/2025 1 1 [facility] Heart Station [address] [place] [address] [phone] (fax) Echocardiogram-[facility] Name: JOSÉ MIGUEL ANTONIO Study Date: 03/06/2025 09:53 AM B/P: 105 mmHg/70 mmHg HR: 98 bpm Date of : 1940 Location: [facility] Height: 72 in. Age: 85 year(s) Patient Room: 3182 Weight: 176 lb. Gender: Male Patient Status: InPt BSA: 2.02 m2 Indication: Systolic Heart Failure, H/O MitraClip, H/O LV thrombus, Pacemaker/AICD, H/O CABG Examination: Limited Echo/Limited Doppler, Color flow imaging, Lumason Contrast Image Quality: Poor sound transmission in apical views Patient Consent: Procedure explained to patient Exam Details Contrast: I.V. dose of Lumason Conclusions Left Ventricle: The left ventricle is severely enlarged. Global left ventricular systolic function is severely reduced. EF range is estimated at 5 % -10 %. Diffuse global hypokinesis. Left Ventricular Measurements LVEF, MOD4: 4 %. Right Ventricle: The right ventricle is enlarged. Right ventricular systolic function appears reduced. A pacemaker wire is seen in the right atrium and right ventricle. Doppler studies suggest severely elevated right sided pressures. Left Atrium: The left atrium is moderately enlarged. Mitral Valve: MitraClip is seen. Moderate mitral regurgitation. The mitral regurgitant jet is eccentric and directed posteriorly. Aortic Valve: Trivial aortic valve regurgitation. Tricuspid Valve: Moderate to severe tricuspid regurgitation. Pericardium: No pericardial effusion. A pleural effusion is seen. Overall Conclusions: Due to suboptimal imaging Lumason contrast was administered for opacification and better delineation of endocardial borders. Measurements Left Ventricle Label Value Normal Value LVDd, 2D 7 cm (4.2cm - 5.9cm) Right Atrium Label Value Normal Value RA Area 34 cm?? Tricuspid Valve Label Value Normal Value RA Pressure 15 mmHg RVSP 67 mmHg Great Vessels Label Value Normal Value IVC 2.4 cm (1.2cm - 2.3cm) Valvular Assessment LVOT 0.7 - 1.1 m/sec Aortic Valve 1.0 - 1.7 m/sec Mitral Valve 0.6 - 1.3 m/sec Tricuspid Valve 0.3 - 0.7 m/sec Pulmonic Valve 0.6 - 0.9 m/sec Regurgitation Trivial Mod Mod-Sev Trivial Findings Left Ventricle: The left ventricle is severely enlarged. Global left ventricular systolic function is severely reduced. EF range is estimated at 5 % -10 %. Diffuse global hypokinesis. Left Ventricular Measurements LVEF, MOD4: 4 %. Right Ventricle: The right ventricle is enlarged. Right ventricular systolic function appears reduced. A pacemaker wire is seen in the right atrium and right ventricle. Doppler studies suggest severely elevated right sided pressures. Left Atrium: The left atrium is moderately enlarged. Right Atrium: The right atrium is severely enlarged. Mitral Valve: MitraClip is seen. Moderate mitral regurgitation. The mitral regurgitant jet is eccentric and directed posteriorly. Aortic Valve: Mildly sclerosed aortic valve cusps. Trivial aortic valve regurgitation. Tricuspid Valve: Normal tricuspid valve. Moderate to severe tricuspid regurgitation. Pulmonic Valve: Normal pulmonary valve. Trivial pulmonary regurgitation. Great Vessels: IVC: The IVC is dilated. There is no inspiratory collapse of the IVC. Pericardium: No pericardial effusion. A pleural effusion is seen. Procedure Staff Reading Group: [facility] Referring Physician: RFANCISCA SERRANO Information Security: Janice Draper RDCS, RVT, RN, BSN Ordering Physician: TROY AGOSTO us Troy Agosto MD CV ECHO PROCEDURES Final Result * (ABNORMAL) Iron and TIBC (03/06/2025 8:35 AM EDT) Iron 19(L) 50 - 212 ug/dL 03/06/2025 10:27 AM EDT [facility]) TIBC 218(L) 250 - 450 ug/dL 03/06/2025 10:27 AM EDT [facility]) Iron Saturation 9(L) 20 - 50 % 10:27 AM EDT [facility]) UIBC 199.0 155.0 - 355.0 ug/dL 03/06/2025 10:27 AM EDT [facility]) Blood Venous blood specimen / Unknown Venipuncture / Unknown 03/06/2025 8:35 AM EDT 03/06/2025 8:56 AM EDT us Tino Borja MD LAB BLOOD ORDERABLES Final Resul t [facility]) [address] [place] [address] * (ABNORMAL) PTH, intact (03/06/2025 8:35 AM EDT) PTH 134(H) 12 - 88 pg/mL 03/06/2025 10:55 AM EDT [facility]) Blood Venous blood specimen / Unknown Venipuncture / Unknown 03/06/2025 8:35 AM EDT 03/06/2025 8:56 AM EDT us Tino Borja MD LAB BLOOD ORDERABLES Final Resul t [facility]) [address] [place] [address] * Ferritin (03/06/2025 8:35 AM EDT) Ferritin 141.0 24.0 - 336.0 ng/mL 03/06/2025 10:55 AM EDT [facility]) Blood Venous blood specimen / Unknown Venipuncture / Unknown 03/06/2025 8:35 AM EDT 03/06/2025 8:56 AM EDT us Tino Borja MD LAB BLOOD ORDERABLES Final Resul t Performing Organization Address City/[facility]/ZIP Co de Phone Number [facility] ([facility]) [address] [place] [address] * TSH3 Reflex to FT4 (03/05/2025 11:19 PM EDT) TSH 1.69 0.34 - 5.60 mIU/L 03/06/2025 12:11 AM EDT [facility] ([facility]) Blood Venous blood specimen / Unknown Venipuncture / Unknown 03/05/2025 11:19 PM EDT 03/05/2025 11:26 PM EDT Carol Cohen MD LAB BLOOD ORDERABLES Fin al Result Performing Organization Address City/[facility]/ZIP Co de Phone Number [facility] ([facility]) [address] [place] [address] * XR chest 1 view (03/05/2025 10:33 PM EDT) Anatomical Region Laterality Modality Chest Computed Radiogr aphy 03/06/2025 4:04 AM EDT Impressions 03/06/2025 4:05 AM EDT There is mild congestive heart failure with small left-sided pleural effusion and basilar airspace disease likely atelectasis. Electronically signed: Araceli Fuller. Narrative 03/06/2025 4:05 AM EDT XR CHEST 1 VIEW 03/05/2025 10:01 PM CLINICAL INDICATIONS: Congestive heart failure COMPARISON: 10/14/2024 FINDINGS: There is stable mild to moderate cardiomegaly with mild vascular congestion and left lower lobe airspace disease with small effusion. Pacer leads are grossly intact. There is no pneumothorax Procedure Note Araceli Fuller MD - 06/21/2025 XR CHEST 1 VIEW 03/05/2025 10:01 PM CLINICAL INDICATIONS: Congestive heart failure COMPARISON: 10/14/2024 FINDINGS: There is stable mild to moderate cardiomegaly with mildvascular congestion and left lower lobe airspace disease with small effusion. Pacer leads are grossly intact. There is no pneumothorax IMPRESSION: There is mild congestive heart failure with small left-sided pleuraleffusion and basilar airspace disease likely atelectasis. Electronically signed: Araceli Fuller. Carol Cohen MD IMG XR PROCEDURES Final Result * (ABNORMAL) Phosphorus (03/05/2025 9:48 PM EDT) Phosphorus 5.9(H) 2.5 - 5.0 mg/dL 03/05/2025 10:31 PM EDT [facility]) Blood Venous blood specimen / Unknown Venipuncture / Unknown 03/05/2025 9:48 PM EDT 03/05/2025 9:59 PM EDT Carol Cohen MD LAB BLOOD ORDERABLES Fin al Result Performing Organization Address City/[facility]/ZIP Co de Phone Number [facility]) [address] [place] [address] * (ABNORMAL) B-type natriuretic peptide (03/05/2025 9:48 PM EDT) BNP 4,437(H) 0 - 100 pg/mL 03/05/2025 10:30 PM EDT [facility]) Blood Venous blood specimen / Unknown Venipuncture / Unknown 03/05/2025 9:48 PM EDT 03/05/2025 9:59 PM EDT us Carol Cohen MD LAB BLOOD ORDERABLES Fin al Result [facility]) [address] [place] [address] * Hemoglobin A1c (10/04/2024 3:08 AM EST) Hemoglobin A1C 5.6 4.0 - 6.0 % 10/05/2024 11:29 AM EST [facility]) Estimated Average Glucose 114 mg/dL 10/05/2024 11:29 AM EST [facility]) Blood Venous blood specimen / Unknown Arterial Line / Unknown 10/04/2024 3:08 AM EST 10/04/2024 3:56 AM EST us Chaim Cabrera MD LAB BLOOD ORDERABLES Final Resu lt [facility] [address] [place] [address] from Last 3 Months or Most Recently Relevant to Health Maintenance Insurance [address] [place] [id number] MEDICARE Member Subscriber Plan / Payer (Ef fective 2011-Present) Name:José Miguel Antonio Member ID:[id number] Relation to Subscriber:Self Name:José Miguel Antonio Subscriber ID:[id number] Payer ID:[id number] Group ID:Not on file Type:Medicare Address: [facility] [place] [id number] [employer] [place] Advance Directives * Full Code (Latest Code Status on File) Date Activated Date Inactivated Comments 03/05/2025 9:00 PM 03/16/2025 7:20 PM * Full Code Date Activated Date Inactivated Comments 09/29/2024 6:48 PM 10/17/2024 5:18 PM * Full Code Date Activated Date Inactivated Comments 11/19/2023 5:43 PM 11/25/2023 5:51 PM * Full Code Date Activated Date Inactivated Comments 11/19/2023 4:28 PM 11/19/2023 5:43 PM * Full Code Date Activated Date Inactivated Comments 09/27/2023 1:34 PM 09/29/2023 8:52 PM Care Teams Office Agent Relationship Specialty Start Date End Date Francisca Serrano MD [facility] [place] [address] PCP - General 05/16/22
--- OUTSIDE RECORDS SUMMARY | 2025-04-08 10:54 | XMS_ITS | Encounter Summary ---
Author Organization [facility] Address [address] [place] [address] Care Team Providers Care Home Day Care Provider Name Role Phone Samm Serrano MD Primary Care Provider [phone] Encounter Details Date Type Department Care Team (Late st Contact Info) Description 03/17/2025 Telephone [facility] [address] [place] [address] Nidia Pa MA Social History Tobacco Use Types Packs/Day Years Used Date Smoking Tobacco: Former Cigarettes Smokeless Tobacco: Never Alcohol Use Standard Drinks/Week Comments Not Currently 0 (1 standard drink = 0.6 oz pur e alcohol) [facility] Utilities Answer Date Recorded In the past 12 months has [facility] electric, gas, oil, or water company threatened [...] any time in the past 12 [facility], were you homeless or living in a [facility] (including now)? No 03/05/2025 Hunger Vital Sign [...] PM EDT documented as of this encounter Miscellaneous Notes * Telephone Encounter - Radha Galindo MA - 03/26/2025 10:16 AM EDT Daughter called and stated 152.2 at 8 this am and is now at 151.8. Daughter states he still has some edema. Patient had IV Bumex on March 24. Daughter states he is feeling fine, just has some pittingedema. Home health will in Saturday to draw labs. Please advise documented in this encounter Plan of Treatment Upcoming Encounters Date Type Department Care Team (Late st Contact Info) Description 04/26/2025 2:30 PM EDT Office Visit [facility] [place] [address] [place] [address] Ozzie Crain MD [address] [facility] [place] [address] documented as of this encounter Visit Diagnoses Not on filedocumented in this encounter Care Teams Home Day Care Provider Relationship Specialty Start Date End Date Samm Serrano MD [address] [facility] [place] [address] PCP - General 05/16/22 documented as of this encounter
--- OUTSIDE RECORDS SUMMARY | 2025-04-08 10:54 | XMS_ITS | Encounter Summary ---
Author Organization [facility] Address [address] [place] [address] Care Team Providers Care Economics Instructor Name Role Phone Samm Serrano MD Primary Care Provider [phone] Reason for Visit * Reason Comments Med Refill Encounter Details Date Type Department Care Team (Late st Contact Info) Description 07/05/2023 Refill [facility] Heart at [facility] [address] [place] [address] Ozzie Crain MD [address] [facility] [address] [facility] [place] [address] Coronary artery disease, unspecified vessel or lesion type, unspecified whether angina present, unspecified whether stebbins or transplanted heart; Carotid stenosis, asymptomatic, left; 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 ([facility]) Social History Tobacco Use Types Packs/Day [...] Description 04/26/2025 2:30 PM EDT Office Visit [facility] Heart at [facility] [address] [place] [address] Ozzie Crain MD [address] [facility] [place] [phone] documented as of this encounter Visit Diagnoses Diagnosis Coronary artery disease, unspecified vessel or lesion type, unspecified whether angina present, unspecified whether stebbins or transplanted heart Carotid stenosis, asymptomatic, left 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 difficile Rule-Out Comment:Test discontinued 03/05/2025 03/05/2025 03/08/2025 8:0 3 AM EDT Bed bugs Comment:Spoke with day shift RN. Has not seen any fleas on patient, in patients belongings or in room environment today of in the 4 days prior. Pt's belongings are bagged. No need for isolation. NOT BED BUGS- Patient has FLEAS 03/10/2025 03/11/2025 03/11/20 11:49 AM EDT documented as of this encounter Care Teams Economics Instructor Relationship Specialty Start Date End Date Samm Serrano MD [address] [facility] [address] [address] PCP - General 05/16/22 documented as of this encounter
--- OUTSIDE RECORDS SUMMARY | 2025-04-08 10:54 | XMS_ITS | Encounter Summary ---
Author Organization [facility] Address [address] [place] [address] Care Team Providers Care Residential Roofer Name Role Phone Samm Serrano MD Primary Care Provider +-4 Tom Gonzalez Unavailable [phone] Andreas Pierre MD Unavailable Virgil Carrillo MD Unavailable Jethro Mendoza MD Unavailable Isaías Kinney MD Unavailable [phone] Source Comments In the event this information is protected by the Federal Confidentiality of Alcohol and Drug AbusePatient Records regulations: The Federal rules restrict any use of the information to criminally investigate or prosecute any alcohol or drug abuse patient.[facility] Encounter Details Date Type Department Care Team (Latest Contact Info) Description 06/14/2024 Get Medical Advice Cardiology [address] [place], [place] [id number] Isaías Kinney MD [address] [place] [address] Eliquis prescription Social History Tobacco Use Types Packs/Day Years Used Date Smoking Tobacco: Former Cigarettes 1 10 0 04/28/1972 - 04/28/1982 Pipe Passive Smoke Exposure: Never Smokeless Tobacco: Never Alcohol Use Standard Drinks/Week Comments Yes 0 (1 standard drink = 0.6 oz pur e alcohol) rarely [facility] Utilities Answer Date Recorded In the [...] place to sleep or slept in a skilled nursing (including now)? No 03/02/2024 Housing Stability Vital [...] were you homeless or living in a skilled nursing (including now)? No 05/11/2024 Area Deprivation Index Answer Date Rich rded National Score (1-100), lower number is lower ri sk 52 02/05/2024 State Score (1-10), lower number is lower risk 3 02/05/2024 Data from: https://www.neighborhoodatlas.medicine.[facility].edu/. Last address used for calculation [address] [place] [address] [address] 02/05/2024 Sex and Gender Information [...] 06/30/2025 10:00 AM EDT Office Visit Cardiology [address] [place] [address] Isaías Kinney MD [address] [place], [place] [phone] DX: Chronic diastolic heart failure 09/20/2025 8:15 AM EST Procedure Cardiology [address] [place] [address] Dx. Atherosclerotic heart disease of [place] coronary artery with other forms of angina pectoris 09/20/2025 9:00 AM EST Appointment Cardiology [address] [place] [address] Dx. Atherosclerotic heart disease of [place] coronary artery with other forms of angina pectoris 09/20/2025 9:45 AM EST Office Visit Cardiology [address] [place] [address] Nj Wei MD [address] [place], [place] [phone] Dx. Atherosclerotic heart disease of [place] coronary artery with other forms of angina pectoris documented as of this encounter Goals Goal Patient Goal Type Associated Problems Recent Progress Patient-Stated? Author Blood Pressure < 130/80 Blood Pressure 134/63( 025 3:00 PM EDT) No Lidia oL, ARIES documented as of this encounter Visit Diagnoses Not on filedocumented in this encounter Care Teams Residential Roofer Relationship Specialty Start Date End Date Samm Serrano MD PCP - General Family Medicine 05/30/12 Tom Gonzalez [address] [place] [address] Primary Staff Physician Cardiology 12/02/18 Andreas Pierre MD [address] [place] [address] Primary Staff Physician Cardiology 04/26/23 Virgil Carrillo MD [address] [place] [phone] Primary Staff Physician Cardiology 10/29/23 Jethro Mendoza MD [address] [place] [address] Primary Staff Physician Cardiology 12/26/23 Isaías Kinney MD [address] [place] [phone] Primary Staff Physician Cardiology 01/10/24 documented as of this encounter
--- OUTSIDE RECORDS SUMMARY | 2025-04-08 10:54 | XMS_ITS | Encounter Summary ---
Author Organization [facility] Address [address] [place] [address] Care Team Providers Care Bilingual Receptionist Name Role Phone Samm Serrano MD Primary Care Provider [phone] Encounter Details Date Type Department Care Team (Late st Contact Info) Description 04/06/2025 Telephone [facility] [address] [place] [address] Nidia Pa MA Social History Tobacco Use Types Packs/Day Years Used Date Smoking Tobacco: Former Cigarettes Smokeless Tobacco: Never Alcohol Use Standard Drinks/Week Comments Not Currently 0 (1 standard drink = 0.6 oz pur e alcohol) [facility] Utilities Answer Date Recorded In the past 12 months has [facility] electric, gas, oil, or water company threatened [...] you homeless or living in a senior care (including now)? No 03/05/2025 Hunger Vital Sign [...] Description 04/26/2025 2:30 PM EDT Office Visit [facility] [address] [place] [address] Ozzie Crain MD [address] [facility] [address] [place] [id number] documented as of this encounter Visit Diagnoses Not on filedocumented in this encounter Care Teams Bilingual Receptionist Relationship Specialty Start Date End Date Samm Serrano MD [address] [facility] [address] [address] PCP - General 05/16/22 documented as of this encounter
--- OUTSIDE RECORDS SUMMARY | 2025-04-08 10:54 | XMS_ITS | Encounter Summary ---
Author Organization [facility] Address [address] [place] [address] Care Team Providers Care Electrical Worker Name Role Phone Samm Serrano MD Primary Care Provider +-4 Tom Gonzalez Unavailable [phone] Andreas Pierre MD Unavailable Virgil Carrillo MD Unavailable Jethro Mendoza MD Unavailable Isaías Kinney MD Unavailable [phone] Source Comments In the event this information is protected by the Federal Confidentiality of Alcohol and Drug AbusePatient Records regulations: The Federal rules restrict any use of the information to criminally investigate or prosecute any alcohol or drug abuse patient.[facility] Encounter Details Date Type Department Care Team (Late st Contact Info) Description 06/11/2024 Patient Msg Cardiology [address] [place] [address] Karon Claros MA Missed Remote Transmission Social History Tobacco Use Types Packs/Day Years Used Date Smoking Tobacco: Former Cigarettes 1 10 0 04/28/1972 - 04/28/1982 Pipe Passive Smoke Exposure: Never Smokeless Tobacco: Never Alcohol Use Standard Drinks/Week Comments Yes 0 (1 standard drink = 0.6 oz pur e alcohol) rarely [facility] Utilities Answer Date Recorded In the past 12 months has th e [employer], gas, oil, or water company threatened to [...] any time in the past 12 m [facility], were you homeless or living in a correction (including now)? No 05/11/2024 Area Deprivation Index Answer Date Rich rded National Score (1-100), lower number is lower ri sk 52 02/05/2024 State Score (1-10), lower number is lower risk 3 02/05/2024 Data from: https://www.neighborhoodatlas.[facility]/. Last address used for calculation [address] 02/05/2024 Sex and Gender [...] 06/30/2025 10:00 AM EDT Office Visit Cardiology [address] [place], [place] [phone] Isaías Kinney MD [address] [place] [address] DX: Chronic diastolic heart failure 09/20/2025 8:15 AM EST Procedure Cardiology [address] [place], [place] [phone] Dx. Atherosclerotic heart disease of [place] coronary artery with other forms of angina pectoris 09/20/2025 9:00 AM EST Appointment Cardiology [address] [place], [place] [phone] Dx. Atherosclerotic heart disease of [place] coronary artery with other forms of angina pectoris 09/20/2025 9:45 AM EST Office Visit Cardiology [address] [place], [place] [phone] Nj Wei MD [address] [place] [phone] Dx. Atherosclerotic heart disease of [place] coronary artery with other forms of angina pectoris documented as of this encounter Goals Goal Patient Goal Type Associated Problems Recent Progress Patient-Stated? Author Blood Pressure < 130/80 Blood Pressure 134/63( 025 3:00 PM EDT) Lidia Soto, ARIES documented as of this encounter Visit Diagnoses Not on filedocumented in this encounter Care Teams Electrical Worker Relationship Specialty Start Date End Date Samm Serrano MD PCP - General Family Medicine 05/30/12 Tom Gonzalez [address] [place] [address] Primary Staff Physician Cardiology 12/02/18 Andreas Pierre MD [address] [place] [address] Primary Staff Physician Cardiology 04/26/23 Virgil Carrillo MD [address] [place] [address] Primary Staff Physician Cardiology 10/29/23 Jethro Mendoza MD [address] [place] [address] Primary Staff Physician Cardiology 12/26/23 Isaías Kinney MD [address] [place] [address] Primary Staff Physician Cardiology 01/10/24 documented as of this encounter
--- OUTSIDE RECORDS SUMMARY | 2025-04-08 10:54 | XMS_ITS | Patient Health Record ---
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 Endocrinology [address] [place] [address] 08/04/2024 Laila Marina Autoimmune thyroiditis E06.3 06 [facility] Endocrinology [address] [place] [address] 09/25/2024 Laila Marina 06 [facility] Endocrinology [address] [place] [address] 01/20/2025 Laila Marina 06 [facility] [address] [place] [address] 09/27/2024 Laila Marina 06 [facility] Endocrinology [address] [place] [address] 09/27/2024 Laila Marina 06 [facility] Endocrinology [address] [place] [address] 09/28/2024 Laila Marina 06 [facility] [address] [place] [address] 11/25/2024 Laila Marina 06 [facility] Endocrinology [address] [place] [address] 01/26/2025 Laila Marina Assessments Encounter Date Diagnosis (ICD Code) Assessment [...] 25-Hydroxy 08/27/2018 Next Appt Details Provider Name:Laila Burgos arabellajose, 08/03/2025 03:00:00 PM, [address] , [place], [address], Insurance Providers Payer Name Payer Address Payer Phone Subscriber Number Group Number Insured Name Patient Relationship to Insured Coverage Start Date Coverage End Date MEDICARE PART B [address] [address] [phone] [id number] José Miguel Antonio Self - patient is the insured [facility] - MEDICARE SUPPLEMEN T [address] [place] [phone] [id number] José Miguel Antonio Self - patient is the insured [facility] [address] [address] [facility] [phone] [id number] José Miguel Antonio Self - patient is the insured Medical (General) History Medical History History ICD Code Hypothyroidism heart disease high blood pressure chronic kidney disease prostate cancer Surgical History Surgery Date(Month/Year) defibrillator/pacemaker placement 2018 heart cath 02/2019 carotid endarterectomy-right 05/2012 triple bypass 2011 Hospitalization History Reason Date(Month/Year) water retention 07/2024 stroke 08/2021 heart attack 2011
--- OUTSIDE RECORDS SUMMARY | 2025-04-08 10:54 | XMS_ITS ---
Author Organization [facility] Address [address] [place] [address] Care Team Providers Care Barrow Worker Name Role Phone Samm Serrano MD Primary Care Provider +-4 Tom Gonzalez Unavailable [phone] Andreas Pierre MD Unavailable Virgil Carrillo MD Unavailable Jethro Mendoza MD Unavailable Isaías Kinney MD Unavailable [phone] Active Problems Patient Care Coordination No [...] x3 (OTTO-LAD, SVG-PDA, SVG-OM) on 05/01/12 - [facility] 2021: patent OTTO-LAD and SVG-OM, occluded SVG-PDA [...] ICD shock Patient has been followed by [employer] Dr. Wei for frequent PVCs (burden 27% [...] hospitalized for acute decompensated heart failure at [facility] 09/12/24-09/16/24. During this hospitalization he was diuresed and discharged home. Remote device transmission then revealed that patient had an ICD shock for VT on 09/16/24 at 6:22 am. He was reportedly not on a continuous assistant portfolio manager at the time. He had a total of 21 VT events with rates 214-231 bpm, 20 of which were successfully treated with ATP x1 between 09/14/24-10/10/24. Dr. Wei recommended admission for further management of ventricular tachycardia and recurrent acute decompensated heart failure. HOSPITAL COURSE: The patient presented to the [facility] ED 09/17/24 after being notified of an [...] kidney disease, unspecified CKD stage, unspecified whether sql ssis developer insulin use 04/26/2023 Stroke (cerebrum) 09/03/2022 Chronic systolic heart failure 09/03/2022 Carotid stenosis, asymptomatic, bilateral 2021 Syncope 03/18/2019 Sweating 11/17/2012 Overview (11/17/2012): History: Developed cold sweat ~ 1100 at rest during protestant on 11/16. There was no nausea, chest pain, jaw pain, shortness of breath, or lightheadedness. This is similar to his symptoms when patient had STEMI in 04/2012. Patient presented to [facility] at 1200. EKG showed q waves in III, aVF; ST depression in I, aVL; ST elevation V3, V4, V5. On arrival to [facility] his EKG showed resolution of ST elevation in V4 and V5. His troponin 0.367 at OSH (? Troponin I); but has been negative at [facility] Main campus. Assessment: Possible atypical manifestations type II demand ischemia in setting of recent dehydration from profuse diarrhea or residual symptoms of recent illness. Cold sweat resolved after arrival. Plan: Trend cardiac enzymes, monitor clinical symptoms, and serial EKG's as needed. If continue to worsen clinically, would proceed to [facility]. Coronary artery disease invo lving coronary bypass graft of [place] heart without angina pectoris 11/17/2012 Acute on chronic systolic congestive heart failu re 11/17/2012 Overview (11/17/2012): History: Acute systolic heart failure in setting of LA in 04/2012 LVEF 42% by ECHO 06/2012 [...] LVEF 25%, NL RV. IABP placed in chemical laboratory technician preop. D/c'd 05/02. Postpump TTE: LVEF 25-30%. [...] complaints. Continue. Atherosclerotic heart diseas e of [place] coronary artery with other forms of angina [...] 54, Troponin T .37 on admission to [facility] Wide-complex tachycardia 04/28/2012 Overview (05/03/2012): Presented to OSH 04/28/12 in setting acute LA with wide complex tachycardia SVT versus VT. Given adenosine x2 without effect, diltiazem bolus and infusion with no effect. Spontaneous conversion to NSR. Had short run of wide complex tachycardia upon arrival to [facility] from CICU. Pre-op evaluation 04/28/2012 05/01/2012 Overview (04/28/2012): Preoperative evaluation for CABG. Not ReDo -Carotids: Ordered -Vein Mapping: Ordered -Bedside PFTs: Ordered -Formal TTE: Ordered -CXR: Completed
--- OUTSIDE RECORDS SUMMARY | 2025-04-08 10:54 | XMS_ITS ---
Author Organization [facility] Address [address] [place] [address] Care Team Providers Care Prosthetic Assistant Name Role Phone Samm Serrano MD Primary Care Provider [phone] Active Problems Problem Noted Date Diagnosed Date [...] disease invo lving coronary bypass graft of [place] heart 05/26/2022 Chronic systolic heart failure 05/26/2022 NSVT (nonsustained ventricular tachycardia) 05/17 Old AR (myocardial infarction) 05/26/2022 Mitral valve insufficiency 05/26/2022 [...] get clearance to take Viagra through his milk and cream grader. Both and patient are where the most contact milk and cream grader prior to taking the medication. Viagra 1/2 [...] sexual function is: cannot sustain erection Comorbidities: cardiac---AR, Has AICD ==== 07/17/2019 ==== patient follow-up [...] Referral to be made -per patient choice [facility]. 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 Plan: Aggressive risk factor management. See CAD section. Sweating 11/17/2012 10/10/2023 Overview (10/10/2023): History: Developed cold sweat ~ 1100 at rest during rastafarian on 11/16. There was no nausea, chest pain, jaw pain, shortness of breath, or lightheadedness. This is similar to his symptoms when patient had STEMI in 04/2012. Patient presented to [facility] at 1200. EKG showed q waves in III, aVF; ST depression in I, aVL; ST elevation V3, V4, V5. On arrival to [facility] his EKG showed resolution of ST elevation in V4 and V5. His troponin 0.367 at OSH (? Troponin I); but has been negative at [facility] Main campus. Assessment: Possible atypical manifestations type II demand ischemia in setting of recent dehydration from profuse diarrhea or residual symptoms of recent illness. Cold sweat resolved after arrival. Plan: Trend cardiac enzymes, monitor clinical symptoms, and serial EKG's as needed. If continue to worsen clinically, would proceed to [facility]. S/P CABG (coronary artery bypass graft) [...] Kerma 49.81 mGy 0 mGy 49.81 mGy Resolved Problems Problem Noted Date Diagnosed Date Resolved Date Bacteremia 03/09/2025 03/17/2025 Assessment & Plan (03/15/2025 4:04 PM EDT): Blood culture from [facility] reported Stenotrophomonas maltophilia Per ID blood cultures likely contaminant and antibiotics being discontinued Assessment & Plan (03/14/2025 11:12 AM EDT): Blood culture from [facility] reported Stenotrophomonas maltophilia Per ID blood cultures likely contaminant and antibiotics being discontinued Assessment & Plan (03/13/2025 12:15 PM EDT): Blood culture from [facility] reported Stenotrophomonas maltophilia Per ID blood cultures likely contaminant and antibiotics being discontinued Assessment & Plan (03/12/2025 4:29 PM EDT): Blood culture from [facility] reported Stenotrophomonas maltophilia Per ID blood cultures likely contaminant and antibiotics being discontinued Assessment & Plan (03/11/2025 2:32 PM EDT): Blood culture from [facility] reported Stenotrophomonas maltophilia Per ID blood cultures likely contaminant and antibiotics being discontinued Assessment & Plan (03/10/2025 3:11 PM EDT): Blood culture from [facility] reported Stenotrophomonas maltophilia Per ID blood cultures likely contaminant and antibiotics being discontinued Assessment & Plan (03/09/2025 1:05 PM EDT): Blood culture from [facility] reported Stenotrophomonas maltophilia Per ID blood [...] likely will need right heart cath with Clover-[place] catheter as well as inotropic agent based [...] Nephrology consult MYLES (acute kidney injury) 11/25/2023 07 /10/2024 Heart failure with reduced ejection fraction 03/17/2025 [...]
--- OUTSIDE RECORDS SUMMARY | 2025-04-08 10:54 | XMS_ITS | Encounter Summary ---
Author Organization [facility] Address [address] [place] [address] Care Team Providers Care Textile Examiner Name Role Phone Samm Serrano MD Primary Care Provider +-4 Tom Gonzalez Unavailable [phone] Andreas Pierre MD Unavailable Virgil Carrillo MD Unavailable Jethro Mendoza MD Unavailable Isaías Kinney MD Unavailable [phone] Source Comments In the event this information is protected by the Federal Confidentiality of Alcohol and Drug AbusePatient Records regulations: The Federal rules restrict any use of the information to criminally investigate or prosecute any alcohol or drug abuse patient.[facility] Encounter Details Date Type Department Care Team (Late st Contact Info) Description 05/23/2024 Get Medical Advice [facility] [address] [place] [address] Provider, Dirk out of pocket expenses Social History Tobacco Use Types Packs/Day Years Used Date Smoking Tobacco: Former Cigarettes 1 10 0 04/28/1972 - 04/28/1982 Pipe Passive Smoke Exposure: Never Smokeless Tobacco: Never Alcohol Use Standard Drinks/Week Comments Yes 0 (1 standard drink = 0.6 oz pur e alcohol) rarely [facility] Utilities Answer Date Recorded In the past 12 months has th e [employer], gas, oil, or water company threatened to [...] place to sleep or slept in a jail (including now)? No 03/02/2024 Housing Stability Vital Sign Answer Akbar e Recorded In the last 12 months, was t here a time when you were not able to pay the mortgage or rent on time? No 05/11/2024 In the past 12 months, how m any times have you moved where you were living? 1 05/11/2024 At any time in the past 12 m [facility], were you homeless or living in a jail (including now)? No 05/11/2024 Area Deprivation Index Answer Date Rihc rded National Score (1-100), lower number is lower ri sk 52 02/05/2024 State Score (1-10), lower number is lower risk 3 02/05/2024 Data from: https://www.neighborhoodatlas.medicine.[facility]/. Last address used for calculation [address] 02/05/2024 Sex [...] 06/30/2025 10:00 AM EDT Office Visit Cardiology [address] [place], [place] [phone] Isaías Kinney MD [address] [place] [address] DX: Chronic diastolic heart failure 09/20/2025 8:15 AM EST Procedure Cardiology [address] [place] [address] Dx. Atherosclerotic heart disease of [place] coronary artery with other forms of angina pectoris 09/20/2025 9:00 AM EST Appointment Cardiology [address] [place] [address] Dx. Atherosclerotic heart disease of [place] coronary artery with other forms of angina pectoris 09/20/2025 9:45 AM EST Office Visit Cardiology [address] [place], [place] [phone] Nj Wei MD [address] [place] [phone] Dx. Atherosclerotic heart disease of [place] coronary artery with other forms of angina pectoris documented as of this encounter Goals Goal Patient Goal Type Associated Problems Recent Progress Patient-Stated? Author Blood Pressure < 130/80 Blood Pressure 134/63( 025 3:00 PM EDT) No Lidia Lo, ARIES documented as of this encounter Visit Diagnoses Not on filedocumented in this encounter Care Teams Textile Examiner Relationship Specialty Start Date End Date Samm Serrano MD PCP - General Family Medicine 05/30/12 Tom Gonzalez [address] [place] [address] Primary Staff Physician Cardiology 12/02/18 Andreas Pierre MD [address] [place] [address] Primary Staff Physician Cardiology 04/26/23 Virgil Carrillo MD [address] [place] [address] Primary Staff Physician Cardiology 10/29/23 Jethro Mendoza MD [address] [place] [address] Primary Staff Physician Cardiology 12/26/23 Isaías Kinney MD [address] [place] [address] Primary Staff Physician Cardiology 01/10/24 documented as of this encounter
--- OUTSIDE RECORDS SUMMARY | 2025-04-08 10:54 | XMS_ITS | Encounter Summary ---
Author Organization [facility] [employer] Address [id number] [address] [place] [address] Care Team Providers Care Drone Pilot Name Role Phone Samm Serrano MD Primary Care Provider +-[phone] Encounter Details Date Type Department Care Team (Late st Contact Info) Description 07/14/2021 Orders Only [facility] [address] [place] [phone] Arelis Callejas Prostate cancer ([facility] Social History Tobacco Use Types Packs/Day Years [...] prostate documented in this encounter Care Teams Drone Pilot Relationship Specialty Start Date End Date Samm Serrano MD PCP - General Family Medicine 02/26/24 documented as of this encounter
--- OUTSIDE RECORDS SUMMARY | 2025-04-08 10:54 | XMS_ITS | Encounter Summary ---
Author Organization [facility] Address [address] [place] [address] Care Team Providers Care Chocolate Coater Name Role Phone Samm Serrano MD Primary Care Provider [phone] Encounter Details Date Type Department Care Team (Late st Contact Info) Description 03/26/2025 Telephone [facility] [address] [place] [address] Radha Galindo MA Social History Tobacco Use Types Packs/Day Years Used Date Smoking Tobacco: Former Cigarettes Smokeless Tobacco: Never Alcohol Use Standard Drinks/Week Comments Not Currently 0 (1 standard drink = 0.6 oz pur e alcohol) [facility] Utilities Answer Date Recorded In the past 12 months has [facility] [employer] gas, oil, or water [employer] threatened to shut off services in your [...] any time in the past 12 m [facility], were you homeless or living in a jail (including now)? No 03/05/2025 Hunger Vital Sign [...] Encounter - Radha Galindo MA - 03/26/2025 1:54 PM EDT Daughter called and stated 152.2 at [...] Description 04/26/2025 2:30 PM EDT Office Visit [place] [address] [place] [address] Ozzie Crain MD [address] [facility] [place] [address] documented as of this encounter Visit Diagnoses Not on filedocumented in this encounter Care Teams Chocolate Coater Relationship Specialty Start Date End Date Samm Serrano MD [address] [place] [address] PCP - General 05/16/22 documented as of this encounter
--- OUTSIDE RECORDS SUMMARY | 2025-04-08 10:54 | XMS_ITS | Encounter Summary ---
Author Organization [facility] Address [address] [place] [address] Care Team Providers Care Software Controls Engineer Name Role Phone Samm Serrano MD Primary Care Provider [phone] Encounter Details Date Type Department Care Team (Late st Contact Info) Description 03/25/2025 Orders Only [facility] [address] [place] [address] Nidia Pa MA Edema, unspecified type (Primary Dx) Social History Tobacco Use Types Packs/Day Years Used Date Smoking Tobacco: Former Cigarettes Smokeless Tobacco: Never Alcohol Use Standard Drinks/Week Comments Not Currently 0 (1 standard drink = 0.6 oz pur e alcohol) [facility] Utilities Answer Date Recorded In the past 12 months has [employer], gas, oil, or water [employer] threatened to shut off services in your [...] living in a correction (including now)? No 03/05/2025 Hunger Vital Sign [...] Description 04/26/2025 2:30 PM EDT Office Visit [facility] [address] [place] [address] Ozzie Crain MD [address] 1 [place] [address] Scheduled Orders Name Type Priority Associated Diagnoses Orde r Schedule Basic metabolic panel Lab Routine Edema, unspecified type Expected: 03/25/2025 (Approximate), Expires: 03/25/2026 documented as of this encounter Visit Diagnoses Diagnosis Edema, unspecified type- Primary documented in this encounter Care Teams Software Controls Engineer Relationship Specialty Start Date End Date Samm Serrano MD [address] [place] [address] PCP - General 05/16/22 documented as of this encounter
--- OUTSIDE RECORDS SUMMARY | 2025-04-08 10:54 | XMS_ITS | Encounter Summary ---
Author Organization [facility] Address [address] [place] [address] Care Team Providers Care Floor Tech Name Role Phone Samm Serrano MD Primary Care Provider +-4 Tom Gonzalez Unavailable [phone] Andreas Pierre MD Unavailable Virgil Carrillo MD Unavailable Jethro Mendoza MD Unavailable Isaías Kinney MD Unavailable Source Comments In the event this information is protected by the Federal Confidentiality of Alcohol and Drug AbusePatient Records regulations: The Federal rules restrict any use of the information to criminally investigate or prosecute any alcohol or drug abuse patient.[facility] Encounter Details Date Type Department Care Team (Late st Contact Info) Description 07/22/2024 Patient [facility] HB-[address] [place] [address] Tessa Zuniga RPh At your next appointment, choose [facility]. Social History Tobacco Use Types Packs/Day Years Used Date Smoking Tobacco: Former Cigarettes 1 10 0 04/28/1972 - 04/28/1982 Pipe Passive Smoke Exposure: Never Smokeless Tobacco: Never Alcohol Use Standard Drinks/Week Comments Yes 0 (1 standard drink = 0.6 oz pur e alcohol) rarely [facility] Utilities Answer Date Recorded In the past 12 months has e [employer], gas, oil, or water company threatened to [...] any time in the past 12 m [facility], were you homeless or living in a chcf (including now)? Yes 07/22/2024 Area Deprivation Index Answer Date Rich rded National Score (1-100), lower number is lower ri sk 52 02/05/2024 State Score (1-10), lower number is lower risk 3 02/05/2024 Data from: https://www.neighborhoodatlas.medicine.[facility].edu/. Last address used for calculation [address] 02/05/2024 Sex and Gender Information [...] 06/30/2025 10:00 AM EDT Office Visit Cardiology [address] [place] [address] Isaías Kinney MD [address] [place] [address] DX: Chronic diastolic heart failure 09/20/2025 8:15 AM EST Procedure Cardiology [address] [place] [address] Dx. Atherosclerotic heart disease of [place] coronary artery with other forms of angina pectoris 09/20/2025 9:00 AM EST Appointment Cardiology [address] [place], [place] [address] Dx. Atherosclerotic heart disease of [place] coronary artery with other forms of angina pectoris 09/20/2025 9:45 AM EST Office Visit Cardiology [address] [place] [address] Nj Wei MD [address] [place] [phone] Dx. Atherosclerotic heart disease of [place] coronary artery with other forms of angina pectoris documented as of this encounter Goals Goal Patient Goal Type Associated Problems Recent Progress Patient-Stated? Author Blood Pressure < 130/80 Blood Pressure 134/63( 025 3:00 PM EDT) No Lidia Lo, ARIES documented as of this encounter Visit Diagnoses Not on filedocumented in this encounter Care Teams Floor Tech Relationship Specialty Start Date End Date Samm Serrano MD PCP - General Family Medicine 05/30/12 Tom Gonzalez [address] [place] [address] Primary Staff Physician Cardiology 12/02/18 Andreas Pierre MD [address] [place] [address] Primary Staff Physician Cardiology 04/26/23 Virgil Carrillo MD [address] [place] [address] Primary Staff Physician Cardiology 10/29/23 Jethro Mendoza MD [address] [place] [address] Primary Staff Physician Cardiology 12/26/23 Isaías Kinney MD [address] [place] [address] Primary Staff Physician Cardiology 01/10/24 documented as of this encounter
--- OUTSIDE RECORDS SUMMARY | 2025-04-08 10:54 | XMS_ITS | Encounter Summary ---
Author Organization [facility] Address [address] [place] [address] Care Team Providers Care Community Nurse Name Role Phone Samm Serrano MD Primary Care Provider +-4 Tom Gonzalez Unavailable [phone] Andreas Pierre MD Unavailable Virgil Carrillo MD Unavailable Jethro Mendoza MD Unavailable Isaías Kinney MD Unavailable [phone] Source Comments In the event this information is protected by the Federal Confidentiality of Alcohol and Drug AbusePatient Records regulations: The Federal rules restrict any use of the information to criminally investigate or prosecute any alcohol or drug abuse patient.[facility] Encounter Details Date Type Department Care Team (Late st Contact Info) Description 06/01/2024 Get Medical Advice Cardiology [address] [place], [place] [phone] Isaías Kinney MD [address] [place] [address] lab results from outside lab Social History [...] th e electric, gas, oil, or water [employer] threatened to shut off services in your [...] or living in a halfway (including now)? No 05/11/2024 Area Deprivation Index Answer Date Rich rded National Score (1-100), lower number is lower ri sk 52 02/05/2024 State Score (1-10), lower number is lower risk 3 02/05/2024 Data from: https://www.neighborhoodatlas.[facility].edu/. Last address used for calculation [address] [place] [address] [address] 02/05/2024 Sex and Gender Information [...] 06/30/2025 10:00 AM EDT Office Visit Cardiology [address] [place] [address] Isaías Kinney MD [address] [place], [place] [phone] DX: Chronic diastolic heart failure 09/20/2025 8:15 AM EST Procedure Cardiology [address] [place] [address] Dx. Atherosclerotic heart disease of [place] coronary artery with other forms of angina pectoris 09/20/2025 9:00 AM EST Appointment Cardiology [address] [place] [address] Dx. Atherosclerotic heart disease of [place] coronary artery with other forms of angina pectoris 09/20/2025 9:45 AM EST Office Visit Cardiology [address] [place] [address] Nj Wei MD [address] [place], [place] [phone] Dx. Atherosclerotic heart disease of [place] coronary artery with other forms of angina pectoris documented as of this encounter Goals Goal Patient Goal Type Associated Problems Recent Progress Patient-Stated? Author Blood Pressure < 130/80 Blood Pressure 134/63( 025 3:00 PM EDT) No Lidia Lo, ARIES documented as of this encounter Visit Diagnoses Not on filedocumented in this encounter Care Teams Community Nurse Relationship Specialty Start Date End Date Samm Serrano MD PCP - General Family Medicine 05/30/12 Tom Gonzalez [address] [place] [address] Primary Staff Physician Cardiology 12/02/18 Andreas Pierre MD [address] [place] [address] Primary Staff Physician Cardiology 04/26/23 Virgil Carrillo MD [address] [place] [phone] Primary Staff Physician Cardiology 10/29/23 Jethro Mendoza MD [address] [place] [address] Primary Staff Physician Cardiology 12/26/23 Isaías Kinney MD [address] [place] [address] Primary Staff Physician Cardiology 01/10/24 documented as of this encounter
--- OUTSIDE RECORDS SUMMARY | 2025-04-08 10:54 | XMS_ITS | Encounter Summary ---
Author Organization [facility] Address [address] [facility] [place] [address] Care Team Providers Care Office Communication Professor Name Role Phone Samm Serrano MD Primary Care Provider [phone] Encounter Details Date Type Department Care Team (Late st Contact Info) Description 03/24/2025 Orders Only [facility] at [facility] [address] [place] [address] Sunny Kendall MD [address] [place] [place] [address] Social History Tobacco Use Types Packs/Day Years Used Date Smoking Tobacco: Former Cigarettes Smokeless Tobacco: Never Alcohol Use Standard Drinks/Week Comments Not Currently 0 (1 standard drink = 0.6 oz pur e alcohol) [facility] Utilities Answer Date Recorded In the past 12 months has [employer], gas, oil, or water [employer] threatened to shut off services in your [...] any time in the past 12 m [facility], were you homeless or living in a chcf (including now)? No 03/05/2025 Hunger Vital Sign [...] PM EDT documented as of this encounter Progress Notes * Sunny Kendall MD - 03/24/2025 1:00 PM EDT I was called by the nurse that the [facility] stating that the patient has increase of 8 pounds over the week. Therefore we will arrange for him to come to the infusion center to get Bumex 3mg IV in addition to his oral dose. Patient will be advised again to follow low-salt diet and restrict his fluid intake to 1200 cc/day. We will check BMP in 2 days Plan: Bumex 3 mg IV x 1 as soon as possible Continue Bumex 2 mg twice daily No salt diet and restrict fluid intake to 1200 cc/day Continue other medications BMP Saturday, the nurse told me that he had labs done today by home health nurse, so we will review them and decide if we need to repeat them later Will ask family to report to us if he waits drops by Saturday morning Sunny Kendall MD, FACC documented in this encounter Plan of Treatment Upcoming Encounters Date Type Department Care Team (Late st Contact Info) Description 04/26/2025 2:30 PM EDT Office Visit [facility] at [facility] [address] [place] [address] Ozzie Crain MD [address] [facility] [address] [facility] [place] [address] documented as of this encounter Visit Diagnoses Not on filedocumented in this encounter Care Teams Office Communication Professor Relationship Specialty Start Date End Date Samm Serrano MD [address] [facility] [address] [address] PCP - General 05/16/22 documented as of this encounter
--- OUTSIDE RECORDS SUMMARY | 2025-04-08 10:54 | XMS_ITS | Encounter Summary ---
Author Organization [facility] Address [address] [place] [address] Care Team Providers Care Long Chain Quiller Tender Name Role Phone Samm Serrano MD Primary Care Provider +-4 Tom Gonzalez Unavailable [phone] Andreas Pierre MD Unavailable Virgil Carrillo MD Unavailable Jethro Mendoza MD Unavailable Isaías Kinney MD Unavailable [phone] Source Comments In the event this information is protected by the Federal Confidentiality of Alcohol and Drug AbusePatient Records regulations: The Federal rules restrict any use of the information to criminally investigate or prosecute any alcohol or drug abuse patient.[facility] Encounter Details Date Type Department Care Team (Late st Contact Info) Description 07/26/2024 Patient [facility] HB-[address] [place] [address] Tuyet Hernandez, [facility] Heart Failure Education Social History Tobacco Use Types Packs/Day Years Used Date Smoking Tobacco: Former Cigarettes 1 10 0 04/28/1972 - 04/28/1982 Pipe Passive Smoke Exposure: Never Smokeless Tobacco: Never Alcohol Use Standard Drinks/Week Comments Yes 0 (1 standard drink = 0.6 oz pur e alcohol) rarely [facility] Utilities Answer Date Recorded In the past 12 months has th e [employer], gas, oil, or water company threatened to [...] time in the past [address] [facility], were you homeless or living in a fdc (including now)? Yes 07/22/2024 Area Deprivation Index Answer Date Rich rded National Score (1-100), lower number is lower ri sk 52 02/05/2024 State Score (1-10), lower number is lower risk 3 02/05/2024 Data from: https://www.neighborhoodatlas.medicine.[facility].edu/. Last address used for calculation [address] 02/05/2024 Sex [...] 10:00 AM EDT Office Visit Cardiology [address] [place] [address] Isaías Kinney MD [address] [place] [address] DX: Chronic diastolic heart failure 09/20/2025 8:15 AM EST Procedure Cardiology [address] [place] [address] Dx. Atherosclerotic heart disease of [place] coronary artery with other forms of angina pectoris 09/20/2025 9:00 AM EST Appointment Cardiology [address] [place], [place] [phone] Dx. Atherosclerotic heart disease of [place] coronary artery with other forms of angina pectoris 09/20/2025 9:45 AM EST Office Visit Cardiology [address] [place] [address] Nj Wei MD [address] [place] [phone] Dx. Atherosclerotic heart disease of [place] coronary artery with other forms of angina pectoris documented as of this encounter Goals Goal Patient Goal Type Associated Problems Recent Progress Patient-Stated? Author Blood Pressure < 130/80 Blood Pressure 134/63( 025 3:00 PM EDT) No Lidia Lo RN documented as of this encounter Visit Diagnoses Not on filedocumented in this encounter Care Teams Long Chain Quiller Tender Relationship Specialty Start Date End Date Samm Serrano MD PCP - General Family Medicine 05/30/12 Tom Gonzalez [address] [place] [address] Primary Staff Physician Cardiology 12/02/18 Andreas Pierre MD [address] [place] [address] Primary Staff Physician Cardiology 04/26/23 Virgil Carrillo MD [address] [place] [address] Primary Staff Physician Cardiology 10/29/23 Jethro Mendoza MD [address] [place] [address] Primary Staff Physician Cardiology 12/26/23 Isaías Kinney MD [address] [place] [address] Primary Staff Physician Cardiology 01/10/24 documented as of this encounter
--- OUTSIDE RECORDS SUMMARY | 2025-04-08 10:54 | XMS_ITS | Encounter Summary ---
Author Organization [facility] Address [address] [place] [address] Care Team Providers Care Iron Setter Name Role Phone Samm Serrano MD Primary Care Provider +-4 Tom Gonzalez Unavailable [phone] Andreas Pierre MD Unavailable Virgil Carrillo MD Unavailable Jethro Mendoza MD Unavailable Isaías Kinney MD Unavailable [phone] Source Comments In the event this information is protected by the Federal Confidentiality of Alcohol and Drug AbusePatient Records regulations: The Federal rules restrict any use of the information to criminally investigate or prosecute any alcohol or drug abuse patient.[facility] Encounter Details Date Type Department Care Team (Late st Contact Info) Description 07/13/2024 Get Medical Advice Cardiology [address] [place], [place] [phone] Isaías Kinney MD [address] [place] [address] Water retention Social History Tobacco Use Types Packs/Day Years Used Date Smoking Tobacco: Former Cigarettes 1 10 0 04/28/1972 - 04/28/1982 Pipe Passive Smoke Exposure: Never Smokeless Tobacco: Never Alcohol Use Standard Drinks/Week Comments Yes 0 (1 standard drink = 0.6 oz pur e alcohol) rarely [facility] Utilities Answer Date Recorded In [...] living in a assisted (including now)? No 05/11/2024 Area Deprivation Index Answer Date Rich rded National Score (1-100), lower number is lower ri sk 52 02/05/2024 State Score (1-10), lower number is lower risk 3 02/05/2024 Data from: https://www.neighborhoodatlas.medicine.[facility].edu/. Last address used for calculation [address] [place] [address] [address] 02/05/2024 Sex and Gender Information [...] 10:00 AM EDT Office Visit Cardiology [address] [place] [address] Isaías Kinney MD [address] [place], [place] [phone] DX: Chronic diastolic heart failure 09/20/2025 8:15 AM EST Procedure Cardiology [address] [place] [address] Dx. Atherosclerotic heart disease of [place] coronary artery with other forms of angina pectoris 09/20/2025 9:00 AM EST Appointment Cardiology [address] [place] [address] Dx. Atherosclerotic heart disease of [place] coronary artery with other forms of angina pectoris 09/20/2025 9:45 AM EST Office Visit Cardiology [address] [place] [address] Nj Wei MD [address] [place] [address] Dx. Atherosclerotic heart disease of [place] coronary artery with other forms of angina pectoris documented as of this encounter Goals Goal Patient Goal Type Associated Problems Recent Progress Patient-Stated? Author Blood Pressure < 130/80 Blood Pressure 134/63( 025 3:00 PM EDT) No Lidia Lo, ARIES documented as of this encounter Visit Diagnoses Not on filedocumented in this encounter Care Teams Iron Setter Relationship Specialty Start Date End Date Samm Serrano MD PCP - General Family Medicine 05/30/12 Tom Gonzalez [address] [place] [address] Primary Staff Physician Cardiology 12/02/18 Andreas Pierre MD [address] [place] [address] Primary Staff Physician Cardiology 04/26/23 Virgil Carrillo MD [facility] [place] [phone] Primary Staff Physician Cardiology 10/29/23 [place] [address] [place] [address] Primary Staff Physician Cardiology 12/26/23 Isaías Kinney MD [address] [place] [phone] Primary Staff Physician Cardiology 01/10/24 documented as of this encounter
--- OUTSIDE RECORDS SUMMARY | 2025-04-08 10:55 | XMS_ITS | Clinical Summary ---
Author Organization [facility] Address [address] [place] [address] Care Team Providers Care Big Machine Consultant Name Role Phone Samm Serrano MD Primary Care Provider [phone] Tom Gonzalez Unavailable [phone] Andreas Pierre MD Unavailable Virgil Carrillo MD Unavailable Jethro Mendoza MD Unavailable Carmela Kinney MD Unavailable [phone] Allergies Active Allergy Reactions Criticality Noted Date Comments Adhesive Tape (Rosins) Rash Low 06/16/2012 Latex Rash 03/13/2019 Medications cetirizine (ZYRTEC) 10 mg tablet Take 1 tablet by mouth once daily as needed. 30 tablet 3 07/26/2024 Active levothyroxine (SYNTHROID) 88 mcg tablet Take 1 tablet by mouth once daily. 90 tablet 09/25/2024 Active mexiletine (MEXITIL) 150 mg capsule Take 150 mg by mouth two times a day. Active metoprolol succinate ER (TOPROL XL) 25 mg 24 hr tablet Take 12.5 mg by mouth once daily. Active apixaban (ELIQUIS) 2.5 mg tab(s) Take 1 tablet by mouth two times a day. 05/16/2024 Active bumetanide (BUMEX) 2 mg tablet Take 2 mg by mouth two times a day. Active potassium chloride ER (KLOR-CON) 20 mEq tablet Take 20 mEq by mouth once daily. Active thiamine (VITAMIN B1) 100 mg tablet Take 100 mg by mouth once daily. Active dapagliflozin propanediol (FARXIGA) 10 mg tablet Take 1 tablet by mouth daily with breakfast. 90 tablet 3 12/21/2024 Active Active Problems Patient Care Coordination No te [...] x3 (OTTO-LAD, SVG-PDA, SVG-OM) on 05/01/12 - [facility] 2021: patent OTTO-LAD and SVG-OM, occluded SVG-PDA [...] ICD shock Patient has been followed by Inventory Transcriber Dr. Carvalho for frequent PVCs (burden 27% in 08/2024) [...] hospitalized for acute decompensated heart failure at [facility] 09/12/24-09/16/24. During this hospitalization he was diuresed and discharged home. Remote device transmission then revealed that patient had an ICD shock for VT on 09/16/24 at 6:22 am. He was reportedly not on a continuous color television console monitor at the time. He had a total of 21 VT events with rates 214-231 bpm, 20 of which were successfully treated with ATP x1 between 09/14/24-10/10/24. Dr. Carvalho recommended admission for further management of ventricular tachycardia and recurrent acute decompensated heart failure. HOSPITAL COURSE: The patient presented to the [facility] ED 09/17/24 after being notified of an [...] kidney disease, unspecified CKD stage, unspecified whether continuous churn buttermaker insulin use 04/26/2023 Stroke (cerebrum) 09/03/2022 Chronic systolic heart failure 09/03/2022 Carotid stenosis, asymptomatic, bilateral 2021 Syncope 03/18/2019 Sweating 11/17/2012 Overview (11/17/2012): History: Developed cold sweat ~ 1100 at rest during [facility] on 11/16. There was no nausea, chest pain, jaw pain, shortness of breath, or lightheadedness. This is similar to his symptoms when patient had STEMI in 04/2012. Patient presented to [facility] at 1200. EKG showed q waves in III, aVF; ST depression in I, aVL; ST elevation V3, V4, V5. On arrival to [facility] his EKG showed resolution of ST elevation in V4 and V5. His troponin 0.367 at OSH (? Troponin I); but has been negative at [facility] Main campus. Assessment: Possible atypical manifestations type II demand ischemia in setting of recent dehydration from profuse diarrhea or residual symptoms of recent illness. Cold sweat resolved after arrival. Plan: Trend cardiac enzymes, monitor clinical symptoms, and serial EKG's as needed. If continue to worsen clinically, would proceed to [facility]. Coronary artery disease invo lving coronary bypass graft of wilton heart without angina pectoris 11/17/2012 Acute on [...] LVEF 25%, NL RV. IABP placed in clam bed laborer preop. D/c'd 05/02. Postpump TTE: LVEF 25-30%. [...] complaints. Continue. Atherosclerotic heart diseas e of wilton coronary artery with other forms of angina [...] 56, Troponin T .37 on admission to [facility] Wide-complex tachycardia 04/28/2012 Overview (05/03/2012): Presented to OSH 04/28/12 in setting acute ND with wide complex tachycardia SVT versus VT. Given adenosine x2 without effect, diltiazem bolus and infusion with no effect. Spontaneous conversion to NSR. Had short run of wide complex tachycardia upon arrival to [facility] from CICU. Pre-op evaluation 04/28/2012 05/01/2012 Overview (04/28/2012): Preoperative evaluation for CABG. Not ReDo -Carotids: Ordered -Vein Mapping: Ordered -Bedside PFTs: Ordered -Formal TTE: Ordered -CXR: Completed Encounters Date Type Department Care Team Description 03/22/2025 Telephone Radiation Oncology [address] [place] [address] [place] [address] Yung Andrade MD Patient Update; Future Appointment; Lab Orders 03/15/2025 Orders Only Cardiology [address] [place] [address] Mariana Carvalho MD SOB (shortness of breath) (Primary Dx) 03/07/2025 Orders Only Pseudo CARD [place] [address] Mariana Carvalho MD 03/04/2025 2:30 PM EDT [facility] [address] [id number] Tuyet Rodrigues, SCHOOL LUNCH MANAGER.RECEIVING MANAGER Amaurosis fugax (Primary Dx); Carotid stenosis, asymptomatic, bilateral; Atrial fibrillation, unspecified type (HCC); Mixed hyperlipidemia; Essential hypertension 03/03/2025 1:49 PM EDT Anesthesia Event HOSP EP Lab [address] [place] [address] Aravind Brumfield MD O'Hara, Carleen A, SCHOOL LUNCH MANAGER.MANAGER RAIL 03/03/2025 12:00 PM EDT - 03/03/2025 1:00 PM EDT Surgery HOSP EP Lab [address] [place] [address] Mariana Carvalho MD CARDIOVERSION EXTERNAL ELECTIVE 03/03/2025 9:31 AM EDT - 03/03/2025 3:24 PM EDT Hospital Encounter [id number] [address] [place] [address] Mariana Carvalho MD Persistent atrial fibrillation (HCC) [I48.19] Discharge Disposition: Home 03/03/2025 Get Medical Advice Cardiology [address] [place] [address] Carmela Kinney MD Urgent 03/03/2025 Travel 03/02/2025 Travel 03/02/2025 Telephone Cardiology [address] [place] [address] Mariana Carvalho MD Schedule Surgery (EPS-DCC) 03/02/2025 Orders Only Pseudo [place]ARD [place] [id number] Mariana Carvalho MD 03/01/2025 11:45 AM EDT Office Visit Cardiology [address] [place] [address] Mariana Carvalho MD 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 (Primary Dx); Coronary artery disease involving coronary bypass graft of wilton heart without angina pectoris; Acute on chronic systolic congestive heart failure (HCC); S/P CABG (coronary artery bypass graft); Cardiomyopathy, ischemic; Frequent PVCs; VT (ventricular tachycardia) ([facility]); ICD (implantable cardioverter-defibrill ator) discharge; 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 kidney disease, unspecified CKD stage, unspecified whether senior living insulin use ([facility]); Stage 3b chronic kidney disease (HCC); Paroxysmal atrial fibrillation ([facility]); continuous churn buttermaker (current) use of anticoagulants 03/01/2025 10:30 AM EDT - 03/01/2025 11:59 PM EDT Hospital Encounter Cardiology [address] [place] [address] Pacemaker reprogramming/check [Z45.018] Discharge Disposition: Home 03/01/2025 9:45 AM EDT Procedure Cardiology [address] [place] [address] 03/01/2025 Travel 02/25/2025 Patient [facility] HB-3 [address] [place] [address] Tessa Zuniga [facility] A Smarter Way to Manage Your Heart Failure Medications 02/23/2025 Telephone Cardiology [address] [place] [address] Carmela Kinney MD Outside Labs-[facility] Ordered (Outside labs dated 02/22/25 from farrah Juarez into [employer] for review) 01/26/2025 Telephone Cardiology [address] [place] [address] Carmela Kinney MD 01/21/2025 Get Medical Advice Cardiology [address] [place] [address] Carmela Kinney MD Thyroid labs and medication from Last 3 Months Immunizations Immunization Administration [...] = 0.6 oz pur e alcohol) rarely Roll[employer] Utilities Answer Date Recorded In the past 12 months has [employer], gas, oil, or water [facility] threatened to shut off services in your [...] time in the past 12 m [place], were you homeless or living in a half-way (including now)? Yes 07/22/2024 Area Deprivation Index Answer Date Rich rded National Score (1-100), lower number is lower ri sk 52 02/05/2024 State Score (1-10), lower number is lower risk 3 02/05/2024 Data from: https://www.neighborhoodatlas.medicine.[facility].edu/. Last address used for calculation [address] [place] [address] [address] 02/05/2024 Sex and Gender Information [...] 06/30/2025 10:00 AM EDT Office Visit Cardiology [address] [place] [address] Carmela Kinney MD [address] [place] [address] DX: Chronic diastolic heart failure 09/20/2025 8:15 AM EST Procedure Cardiology [address] [place] [phone] Dx. 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 Health Maintenance Due Date Last Done Comments Diabetic Foot Exam 02/20/1952 Anxiety Screening 02/20/1960 Depression Screening 02/20/1960 Pneumococcal Vaccine: 50+ (1 of 2 - PCV) 1961 Shingrix Vaccine (1 of 2) 02/20/1992 Medicare Annual Wellness Visit 02/14/2011 RSV Vaccine (1 - 1-dose 75+ series) 2017 Advance Directive Discussion 09/16/2024 LDL Cholesterol 02/15/2025 02/16/2024, 09/16, 09/28/2023, Additional history exists Dilated Retinal Exam 03/02/2025 03/02/2024 HbA1C 04/03/2025 10/04/2024, 11/2024, 05/09/2024, Additional history exists Influenza Vaccine (#1) 2025 DTaP,Tdap,Td Vaccine (2 - Tdap) 06/13/2030 Colonoscopy Discontinued 05/14/2024, 04/17, 05/09/2024 Colorectal Cancer Screening Discontinued CT Colonography Discontinued Cologuard (FIT-DNA) Discontinued Fecal Occult Blood Discontinued Sigmoidoscopy Discontinued Goals Goal Patient Goal Type Associated Problems Recent Progress Patient-Stated? Author Blood Pressure < 130/80 Blood Pressure 134/63( 025 3:00 PM EDT) No Lidia Lo, ARIES Medical Devices Implanted Type Area Language Therapist Device Identifier Shelf Expiration Date Model / Serial / Lot [id number] Mitraclip Xt Delivery System - [id number] Implanted:Qty: 1 on 02/18/2024 by Isreal Rain MD at [facility] MAIN Clip N/A: Heart [employer] V[employer] [id number] / / Sys Kit 1 Sgc & Up To 3 Clips - [id number] Implanted:Qty: 1 on 02/18/2024 at [facility] MAIN Clip [employer]HE[employer] VASCULAR [id number] / / System Vascade 6/7fr Collagen Compression Bioabsorbable Vascular - [id number] Implanted:Qty: 1 on 03/04/2024 at [facility] Collagen Left: Artery - Femoral CARDIVA 11/12/2025 [id number] / / [id number] Icd-D142 [id number] Implanted:2018 (Quantity not on file) ICD [employer] D142 INOGEN / [id number] / [id number] Implanted:2018 (Quantity not on file) Lead [employer] 0675 / [id number] / [id number] [facility] [id number] Implanted:2018 (Quantity not on file) Lead [employer] 7741 INGEVITY MRI / [id number] / [id number] [place] 4-Front [id number] Implanted:2018 (Quantity not on file) Lead [employer] 0675 RELIANCE 4-FRONT / [id number] / Industry Cv 6x1in Thk1.65mm Ptfe - [id number] Implanted:Qty: 1 on 05/01/2012 at [facility] MAIN Patch BARD PERIPHERAL VASCULAR 06/16/2016 [id number] / / [id number] Description:used for plrdget ts. Patch Cv 8x.8cm Tapr Vsgrd Bov - [id number] Implanted:Qty: 1 on 07/01/2012 at [facility] MA[facility] Patch Right: Artery - Carotid [employer] 01/16/2017 [id number] / / [id number] Description:Right Carotid Stent Precise Pro Rx 8mm Nitinol 40mm 135cm Vascular Self Expand Micromesh - [id number] Implanted:Qty: 1 on 03/04/2024 at [facility] Vascular Stents Left: Artery - Carotid CARDINAL CORDIS 12/14/2025 [id number] / / [id number] Procedures Procedure Name Priority Date/Time Associated Diagnosis Comments CARDIAC IMPLANTABLE DEVICE CHECK REMOTE Routine 03/07/2025 4:00 AM EDT CARDIAC IMPLANTABLE DEVICE CHECK Routine 03/03/2025 3:42 PM EDT ECG COMPLETE Routine 03/03/2025 2:22 PM EDT EPS: CARDIOVERSION 03/03/2025 1: 56 PM EDT CARDIOVERSION ELECTIVE ARRHYTHMIA EXTERNAL 03/03/2025 1:48 PM EDT Persistent atrial fibrillation (HCC) COMPREHENSIVE METABOLIC PANEL STAT 03/03/2025 11:03 AM EDT ECG COMPLETE Routine 03/03/2025 10:59 AM EDT ECG COMPLETE 03/03/2025 10:59 AM EDT INTERROGATION EVAL REMOTE </90 D 1/2/INDUSTRY SEGMENT SPECIALIST LD DFB Routine 03/02/2025 4:01 AM EDT US CAROTID ARTERIES [facility] LAB Routine 03/01/2025 12:52 PM EDT CARDIAC IMPLANTABLE DEVICE CHECK Routine 03/01/2025 11:26 AM EDT Pacemaker reprogramming/check ECG COMPLETE Routine 03/01/2025 10:52 AM EDT Cardiomyopathy, ischemic S/P mitral valve clip implantation EXTERNAL LAB 02/24/2025 10:04 AM EDT EXTERNAL LAB 02/23/2025 2:30 PM EDT HEMOGLOBIN A1C Routine 09/18/2024 4:51 AM EST COLONOSCOPY (THERAPEUTIC) Routine 05/14/2024 4:09 PM EDT LIPID PANEL, NONFASTING Add-on 02/16/2024 10:30 AM EDT from Last 3 Months or Most Recently Relevant to Health Maintenance Results * CARDIAC IMPLANTABLE DEVICE CHECK REMOTE (03/07/2025 4:00 AM EDT) Date Time Interrogation Session [id number] [facility] Type Interrogation Session Remote Device Initiated [facility] Implantable Pulse Generator Language Therapist Hurray! MURJ CARDIAC Implantable Pulse Generator Type Defibrillator [facility] Implantable Pulse Generator Model D142 [facility] Implantable Pulse Generator Serial Number [id number] [facility] Implantable Pulse Generator Implant Date 20190324 [facility] Battery Remaining Percentage 81.00 [facility] Battery Remaining Longevity 72.0 [facility] Battery Status Beginning of Service [facility] Capacitor Charge Time 9.500 [facility] Bj Statistic RA Percent Paced 0.00 [facility] Bj Statistic RV Percent Paced 0.00 [facility] Atrial Tachy Statistic AT/AF [place] Percent 20.00 [facility] Lead Channel Sensing Intrinsic Amplitude 2.400 [facility] Lead Channel Setting Sensing Sensitivity 0.25 [facility] Lead Channel Impedance Value 646 [facility] Lead Channel Setting Pacing Amplitude 2.000 [facility] Lead Channel Setting Pacing Pulse Width 0.5 [facility] Lead Channel Sensing Intrinsic Amplitude 18.200 [facility] Lead Channel Setting Sensing Sensitivity 0.30 [facility] Lead Channel Impedance Value 374 [facility]ARD[facility] Lead Channel Setting Pacing Amplitude [...] CARDIAC Therapy Statistic Recent Shocks Delivered 0 [facility] Therapy Statistic Recent Shocks Aborted 0 [facility] C[facility] Therapy Statistic Recent ATP Delivered 0 [facility] Shock Measured Impedance 42 [facility] Lead Channel Setting Sensing Polarity Bipolar [facility] Lead Channel Setting Sensing Polarity Bipolar [facility] Lead Channel Setting Pacing Polarity Bipolar [facility] Lead Channel Setting Pacing Polarity Bipolar [facility] Lead Channel Pacing Threshold Polarity Bipolar [facility] Lead Channel Pacing Threshold Polarity Bipolar [facility] CARDIAC Zone Setting Type Category VF [facility] Rate 1 240 [facility] Therapies Burst,41J,41J,41J x 6 [facility]ARD[facility] Zone Setting Status On [facility] CARD[facility] Zone ID 1 [facility] CARDIAC Zone Setting Type Category VT [facility] CARD[facility]AC Rate 1 200 [facility] Therapies 2 x Burst,41J,41J,41J x 4 MUR CARDIAC Zone Setting Status On [facility] CARDI[facility] Zone ID 2 [facility] Zone Setting Type Category VT [facility] CARDIAC Rate 1 175 [facility] CARDI[facility] Therapies 3 x Burst,41J,41J,41J x 3 MUR CARDIAC Zone Setting Status On [facility] CARDI[facility] Zone ID 3 [facility] Implantable Lead Language Therapist [employer] [facility] Implantable Lead Model 7741 Ingevity MRI [facility] Implantable Lead Location Right Atrium [facility] Implantable Lead Connection Status Connected [facility] Implantable Lead Serial Number [id number] [facility] Implantable Lead Implant Date 20190324 [facility] Implantable Lead Language Therapist [employer] [facility] Implantable Lead Model 0675 [facility] Implantable Lead Location Right Ventricle [facility] Implantable Lead Connection Status Connected [facility] Implantable Lead Serial Number [id number] [facility] Implantable Lead Implant Date [id number] [facility] Implantable Lead Polarity Type Unknown [facility] 03/07/2025 4:00 AM EDT Narrative [facility] - 03/10/2025 7:36 AM EDT Remote Device Evaluation * Device type: BST dual lead ICD * Presenting Rhythm: /VS * Battery Status: Battery is at 6.00 yrs * Arrhythmias: There has been 1 atrial detection since last remote transmission * Lead Measurements: Sensing and lead impedances reviewed, stable measurements per trends * Other Diagnostics: *AP 0%, [employer]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 Full Docket/PDF found below under Scanned Documents . 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 Full Docket/PDF found below under Scanned Documents . Mariana Carvalho MD CARDIOLOGY Final Result [facility] * CARDIAC IMPLANTABLE DEVICE CHECK (03/03/2025 3:42 PM EDT) Date Time Interrogation Session [id number] [facility] Implantable Pulse Generator Language Therapist [employer] [facility] Implantable Pulse Generator Type Defibrillator [facility] Implantable Pulse Generator Model D142 [facility] Implantable Pulse Generator Serial Number [id number] [facility] Implantable Pulse Generator Implant Date 20190324 [facility] Battery Status MONIKA [facility] CARDI[facility] Bj Statistic RA Percent Paced 1.00 [facility]ARD[facility] Bj Statistic RV Percent Paced 2.00 [facility] Atrial Tachy Statistic AT/AF [place] Percent 100.00 [facility] Lead Channel Sensing Intrinsic Amplitude 3.300 [facility] Lead Channel Setting Sensing Sensitivity 0.25 [facility] Lead Channel Impedance Value 669 [facility] Lead Channel Pacing Threshold Amplitude 0.900 [facility] Lead Channel Pacing Threshold Pulse Width 0.5 [facility] Lead Channel Measurements Date and Time 2025-03-03 [facility] Lead Channel Setting Pacing Amplitude 2.000 [facility] Lead Channel Setting Pacing Pulse Width 0.5 [facility] Lead Channel Sensing Intrinsic Amplitude 16.300 [facility] Lead Channel Setting Sensing Sensitivity 0.30 [facility] CARD[facility] Lead Channel Impedance Value 373 [facility]ARD[facility] Lead Channel Pacing Threshold Amplitude [...] CARDIAC Shock Measured Impedance 40 [facility] Zone Setting Type Category VF [facility]ARD[facility] Rate 1 240 [facility]ARD[facility] Therapies ATP, 41J, 41J, 41J x6 [facility] CARD[facility]AC Zone Setting Status On [facility] CARDIAC Zone ID 1 [facility] CARDI[facility] Zone Setting Type Category VT MURJ CARDIAC Rate 1 200 [facility] CARDI[facility] Therapies Burst, 41J, 41J, 41J x4 [facility] CARDIAC Zone Setting Status On [facility] CARDIAC Zone ID 2 [facility] CARDI[facility] Zone Setting Type Category VT1 MURJ CARDIAC Rate 1 175 [facility] CARDIAC Therapies Burst, 41J, 41J, 41J x3 [facility] CARDIAC Zone Setting Status On [facility] CARDIAC Zone ID 3 [facility] Implantable Lead Language Therapist [employer] [facility] Implantable Lead Model 7741 Ingevity MRI [facility] C[facility] Implantable Lead Location Right Atrium [facility] Implantable Lead Connection Status Connected [facility] Implantable Lead Serial Number [id number] [facility] Implantable Lead Implant Date 20190324 [facility] Implantable Lead Language Therapist [employer] [facility] C[facility] Implantable Lead Model 0675 [facility] C[facility] Implantable Lead Location Right Ventricle [facility] Implantable Lead Connection Status Connected [facility] Implantable Lead Serial Number [id number] [facility] Implantable Lead Implant Date [id number] [facility] 03/03/2025 3:42 PM EDT Narrative [facility] - 03/04/2025 4:37 PM EDT Normal In-Office: No Events DUAL LEAD ICD EVALUATION * PRESENTS FOR: POST DCC Device check * Presenting EGM: /VS * Underlying Rhythm: SR * Normal Device Function * Battery: 6.5 years remaining until VETO. (Noted that on the 03/01/25 device check the battery life stated 9.5 years and the remote on 03/02/2025 showed 9 years. Related to DCC today??) * Events or Alerts since: 03/01/2025. No new events since DCC today. * Sensing, impedance and RA thresholds are WNL. RV thresholds tested on 03/01/25 were WNL. * Heart Rate Histograms reviewed * Pacing and Detection Parameters were evaluated * RA pacing <1% and RV pacing 2% NOTE TO PROVIDERS: Cardiac Implanted Devices Flowsheets contain detailed Programming and Evaluation data. Full Docket/PDF found below under Scanned Documents . Procedure Note Mariana Carvalho MD - 03/04/2025 Normal In-Office: No Events DUAL LEAD ICD [...] Docket/PDF found below under Scanned Documents . us Gavi Childress MD CARDIOLOGY Final Result [facility] * EPS: CARDIOVERSION (03/03/2025 1:56 PM EDT) 03/03/2025 1:56 PM EDT N[facility]ative [facility] - 03/03/2025 2:09 PM EDT Final Report Cardiac Electrophysiology Laboratory [facility] [id number] The entire procedure was performed by the [...] months LV function: ECHO: Ejection fraction 0.16 [id number] risk score: 5 Congestive heart failure/LV dysfunction: 1 Hypertension: 1 Age >= 75 years: 2 Diabetes mellitus: 0 Stroke, TIA, or thromboembolism: 0 Vascular disease (prior ND/CAD, PAD or aortic plaque): 1 Age 65-74 years: 0 Sex, female: 0 Duration of arrhythmia: 2 weeks Duration of anticoagulation: > 1 year Patient: [id number] JOSÉ MIGUEL ANTONIO Lab Staff: SHAWN CAZARES MD Lab Fellow: Referring Physician: CARMELA KINNEY MD us Shawn Cazares MD SCHEDULED PROCEDURES Final R esult [facility] [address] [place] [address] * (ABNORMAL) COMPREHENSIVE METABOLIC PANEL (03/03/2025 11:03 AM EDT) Pathologist [facility] Protein, Total 7.2 6.3 - 8.0 g/dL 03/03/2025 11:40 AM [facility] Albumin 3.9 3.9 - 4.9 g/dL 03/03/2025 11:40 AM T [facility] Calcium, Total 9.5 8.5 - 10.2 mg/dL 03/03/2025 11:40 AM EDT [facility] Bilirubin, Total 1.8(H) 0.2 - 1.3 mg/dL 03/03/2025 11:40 AM [facility] Alkaline Phosphatase 125(H) 38 - 113 U/L 03/03/2025 11:40 AM [facility] AST 20 14 - 40 U/L 03/03/2025 11:40 AM [facility] ALT 14 10 - 54 U/L 03/03/2025 11:40 AM [facility] Glucose 106(H) 74 - 99 mg/dL 03/03/2025 11:40 AM [facility] Comment: The [place] Diabetes Association (ADA) provides guidance for cutoff [...] Standards of Medical Care in Diabetes 2016, [place] Diabetes Association. Diabetes Care. 2016.39(Suppl 1). BUN 59(H) 9 - 24 mg/dL 03/03/2025 11:40 AM [facility] Creatinine 2.46(H) 0.73 - 1.22 mg/dL 03/03/2025 11:40 AM [facility] Sodium 138 136 - 144 mmol/L 03/03/2025 11:40 AM EDT [facility] Potassium 5.4(H) 3.7 - 5.1 mmol/L 03/03/2025 11:40 AM EDT [facility] Chloride 101 98 - 107 mmol/L 03/03/2025 11:40 AM EDT [facility] CO2 24 22 - 30 mmol/L 03/03/2025 11:40 AM EDT [facility] Anion Gap 13 8 - 15 mmol/L 03/03/2025 11:40 AM EDT [facility] Estimated Glomerular Filtration Rate 25(L) >=60 mL/min/1. 73m 03/03/2025 11:40 AM EDT [facility] Comment:Estimated Glomerular Filtration Rate (eGFR) [...] AM EDT 03/03/2025 11:20 AM EDT us Mariana Erbierto [facility] Final Result [facility] [address] [place] [address], * ECG COMPLETE (03/03/2025 10:59 AM EDT) Ventricular Rate 132 BPM [facility] QRS Duration 122 ms [facility] QT Interval 280 ms [facility] QTC Calculation (Bazett) 414 ms [facility] Calculated R Sanger -13 degrees [facility] Calculated T Sanger 153 degrees [facility] 03/03/2025 10:5 9 AM EDT Impressions [facility] - 03/25/2025 1:48 PM EDT ATRIAL FIBRILLATION WITH RAPID VENTRICULAR RESPONSE COMPLETE LEFT BUNDLE BRANCH BLOCK ABNORMAL ECG Confirmed by SULLY ZAMORA M.D. ([id number]) on 03/25/2025 1:47:29 PM [facility] - 03/25/2025 1:48 PM EDT NAME : JOSÉ MIGUEL ANTONIO PID : [id number] : 1940 Gender : Male Race : ORD : [id number] Procedure Date : Mar 03 2025 10:59:46 Edit Date : Mar 25 2025 13:48:05 Diagnosis: ATRIAL FIBRILLATION WITH RAPID VENTRICULAR RESPONSE COMPLETE LEFT BUNDLE BRANCH BLOCK ABNORMAL ECG Confirmed by SULLY ZAMORA M.D. ([id number]) on 03/25/2025 1:47:29 PM Test Reason : 921 Location : 23 : [id number] Overread By : SULLY ZAMORA M.D. Edited By : SULLY ZAMORA M.D. Referred By : , Acquired by : [id number], Mariaan Eriberto YOUNG EKG Final Result [facility] [address] [place] [address] * CARDIAC IMPLANTABLE DEVICE CHECK REMOTE (03/02/2025 4:01 AM EDT) Date Time Interrogation Session [id number] MURJ CARDIAC Type Interrogation Session Remote MURJ CARDIAC Implantable Pulse Generator Language Therapist [employer] MURJ CARDIAC Implantable Pulse Generator Type Defibrillator [facility] Implantable Pulse Generator Model D142 MURJ CARDIAC Implantable Pulse Generator Serial Number [id number] MURJ CARDIAC Implantable Pulse Generator Implant Date [...] 6 MURJ CARDIAC Zone Setting Status On [facility] ID 1 MURJ CARDIAC Zone Setting Type Category [place] MURJ CARDIAC Rate 1 200 MURJ CARDIAC Therapies 2 x Burst,41J,41J,41J x 4 MURJ CARDIAC Zone Setting Status On [facility] Zone ID 2 MURJ CARDIAC Zone Setting Type Category VT MURJ CARDIAC Rate 1 175 MURJ CARDIAC Therapies 3 x Burst,41J,41J,41J x 3 MURJ CARDIAC Zone Setting Status On [facility] Zone ID 3 [facility] Implantable Lead Language Therapist [employer] [facility] Implantable Lead Model 7741 Ingevity MRI [facility] Implantable Lead Location Right Atrium [facility] Implantable Lead Connection Status Connected [facility] Implantable Lead Serial Number [id number] [facility] Implantable Lead Implant Date 20190324 [facility] Implantable Lead Language Therapist [employer] [facility] Implantable Lead Model 0675 [facility] Implantable Lead Location Right Ventricle [facility] Implantable Lead Connection Status Connected [facility] Implantable Lead Serial Number [id number] [facility] Implantable Lead Implant Date [id number] [facility] Implantable Lead Polarity Type Unknown [facility] 03/02/2025 4:01 AM EDT Narrative [facility] - 03/02/2025 8:49 PM EDT Tachycardia: AF *AF re-assessment, scheduling for DCC 03/03* * Presenting EGM: AF/VS * Stored EGMs are consistent with or suggestive of Atrial Fibrillation * Total number of events: Ongoing since at least 02/28 *Diagnostics: *AP 2%, [employer] 6%, AT/AF burden N/R* Additional Notes: Dr. Carvalho notified via page for ongoing AF. Called and spoke with patient daughter Charu who will relay to patient. Discussed scheduling DCC with ARIES Boo who spoke with Alison in EP lab. DCC to be scheduled 03/03 NOTE TO PROVIDERS: Cardiac Implanted Devices Flowsheets contain detailed Programming and Evaluation data. Full Docket/PDF found below under Scanned Documents . Procedure Note Mariana Carvalho MD - 03/02/2025 Tachycardia: AF *AF re-assessment, scheduling for DCC 03/03* * Presenting EGM: AF/VS * Stored EGMs are consistent with or suggestive of Atrial Fibrillation * Total number of events: Ongoing since at least 02/28 *Diagnostics: *AP 2%, [employer] 6%, AT/AF burden N/R* Additional Notes: Dr. Carvalho notified via page for ongoing AF. Calledand spoke with patient daughter Charu who will relay to patient.Discussed scheduling DCC with ARIES Boo who spoke with Alison in EP lab.DCC to be scheduled 03/03 NOTE TO PROVIDERS: Cardiac Implanted Devices Flowsheets contain detailedProgramming and Evaluation data. Full Docket/PDF found below under Scanned Documents . Mariana Carvalho MD CARDIOLOGY Final Result MURJ CARDIAC * US CAROTID ARTERIES [facility] (03/01/2025 12:52 PM EDT) 03/01/2025 12:5 2 PM EDT [facility] - 03/01/2025 10:37 PM EDT Non-Invasive Vascular Laboratory [facility] J35 Carotid Duplex Bilateral/Complete Date of [...] interpretation criteria are used as recommended by Intersocietal Accreditation Commission. When compared with the prior [...] stenosis. Technologist: Lewis Brady RVT Ordering physician: LUÍS SKINNER RECEIVING MANAGER Interpreting physician: Yusuf Bernard MD Final See Link below for Image us [facility] Provider VASCULAR LAB Final Result Performing Organization Address City/State/[facility] Co de Phone Number [facility] [address] [place], [place] [phone] * CARDIAC IMPLANTABLE DEVICE CHECK (03/01/2025 11:26 AM EDT) Date Time Interrogation Session [id number] MURJ CARDIAC Implantable Pulse Generator Language Therapist [employer] MURJ CARDIAC Implantable Pulse Generator Type Defibrillator MURJ CARDIAC Implantable Pulse Generator Model D142 MURJ CARDIAC Implantable Pulse Generator Serial Number [id number] MURJ CARDIAC Implantable Pulse Generator Implant Date 20190324 MURJ CARDIAC Battery Status MONIKA MURJ CARDIAC Bj Statistic RA Percent Paced 1.00 MURJ CARDIAC Bj Statistic RV Percent Paced 1.00 MURJ CARDIAC Atrial Tachy Statistic AT/AF [place] Percent 1.00 MURJ CARDIAC Lead Channel Sensing [...] 41J MURJ CARDIAC Zone Setting Status On [facility] Zone ID 1 MURJ CARDIAC Zone Setting Type Category VT MURJ CARDIAC Rate 1 200 MURJ CARDIAC Therapies 41J, 41J MURJ CARDIAC Zone Setting Status On [facility] Zone ID 2 MURJ CARDIAC Zone Setting Type Category VT1 MURJ CARDIAC Rate 1 175 MURJ CARDIAC Therapies 41J, 41J MURJ CARDIAC Zone Setting Status On [facility] C[facility] Zone ID 3 [facility] Implantable Lead Language Therapist [employer] [facility] Implantable Lead Model 7741 Ingevity MRI [facility] C[facility] Implantable Lead Location Right Atrium [facility] C[facility] Implantable Lead Connection Status Connected [facility] Implantable Lead Serial Number [id number] [facility] Implantable Lead Implant Date 20190324 [facility] Implantable Lead Language Therapist [employer] [facility] Implantable Lead Model 0675 [facility] Implantable Lead Location Right Ventricle [facility] Implantable Lead Connection Status Connected [facility] Implantable Lead Serial Number [id number] [facility] Implantable Lead Implant Date [id number] [facility] 03/01/2025 11:2 6 AM EDT Narrative [facility] - 03/01/2025 10:06 PM EDT In-Office Device Evaluation OPD with Dr. Carvalho * Device type: BST dual lead ICD * Presenting Rhythm: AF/VS-[employer] * Underlying Rhythm: AF with variable ventricular [...] or infection. * Other Diagnostics: *AP 1%, [employer] <1%, AT/AF burden 1% (however likely higher d/t DDIR programming)* Tachycardia: AF * Stored EGMs are consistent with or suggestive of Atrial Fibrillation, intermittent RVR observed on stored episodes * AT/AF [place]: 1% * OAC: Eliquis Appropriate VT Therapy: [...] reprogrammed, changes are listed below: Per Dr. Carvalho request * Atrial tachy detection rate lowered [...] below under Scanned Documents . Procedure Note Mariana Carvalho MD - 03/01/2025 In-Office Device Evaluation OPD with Dr. Carvalho * Device type: BST dual lead ICD * Presenting Rhythm: AF/VS-[employer] * Underlying Rhythm: AF with variable ventricular [...] or infection. * Other Diagnostics: *AP 1%, [employer] <1%, AT/AF burden 1% (however likelyhigher d/t DDIR programming)* Tachycardia: AF * Stored EGMs are consistent with or suggestive of Atrial Fibrillation,intermittent RVR observed on stored episodes * AT/AF [place]: 1% * OAC: Eliquis Appropriate VT Therapy: [...] reprogrammed, changes are listed below: Per Dr. Carvalho request * Atrial tachy detection rate lowered from 171bpm to 150bpm * ATR ventricular rate regulation programmed off - to reduce unnecessaryRV pacing during AF * ATE fallback lower rate limit lowered from 60bpm to 50bpm to reduce RVpacing NOTE TO PROVIDERS: Cardiac Implanted Devices Flowsheets contain detailedProgramming and Evaluation data. Full Docket/PDF found below under Scanned Documents . us [facility] [place] Provider CARDIOLOGY F inal Result MURJ CARDIAC * ECG COMPLETE (03/01/2025 10:52 AM EDT) Ventricular Rate 106 BPM [facility] QRS Duration 122 ms [facility] QT Interval 298 ms [facility] QTC Calculation (Bazett) 395 ms [facility] Calculated R Sanger 1 degrees [facility] Calculated T Sanger 155 degrees [facility] 03/01/2025 10:5 2 AM EDT Impressions [facility] - 03/25/2025 1:48 PM EDT ATRIAL FIBRILLATION WITH RAPID VENTRICULAR RESPONSE WITH FREQUENT VENTRICULAR-PACED COMPLEXES AND WITH PREMATURE VENTRICULAR COMPLEXES NONSPECIFIC INTRAVENTRICULAR CONDUCTION DELAY MINIMAL VOLTAGE CRITERIA FOR LVH, MAY BE NORMAL VARIANT ( Robert product ) NONSPECIFIC ST AND T WAVE ABNORMALITY ABNORMAL ECG Confirmed by SULLY ZAMORA M.D. ([id number]) on 03/25/2025 1:47:29 PM Narrative [facility] - 03/25/2025 1:48 PM EDT NAME : JOSÉ MIGUEL ANTONIO PID : [id number] : 1940 Gender : Male Race : ORD : [id number] Procedure Date : Mar 01 2025 10:52:23 Edit Date : Mar 25 2025 13:48:05 Diagnosis: ATRIAL FIBRILLATION WITH RAPID VENTRICULAR RESPONSE WITH FREQUENT VENTRICULAR-PACED COMPLEXES AND WITH PREMATURE VENTRICULAR COMPLEXES NONSPECIFIC INTRAVENTRICULAR CONDUCTION DELAY MINIMAL VOLTAGE CRITERIA FOR LVH, MAY BE NORMAL VARIANT ( [place] product ) NONSPECIFIC ST AND T WAVE ABNORMALITY ABNORMAL ECG Confirmed by SULLY ZAMORA M.D. ([id number]) on 03/25/2025 1:47:29 PM Test Reason : Location : 314 : J14 J14 Overread By : SULLY ZAMORA M.D. Edited By : SULLY ZAMORA M.D. Referred By : MARIANA CARVALHO Acquired by : JUHI GO us Jethro Mendoza MD EKG Final Result Performing Organization Address City/[facility]/ZIP Co de Phone Number [facility] [address] [place] [address] * EXTERNAL LAB (02/24/2025 10:04 AM EDT) Only the most recent of2 resultswithin the time period is included. us External Provider PA-C LABORATORY Final Res ult * HEMOGLOBIN A1C (09/18/2024 4:51 AM EST) Hemoglobin A1C 5.5 4.3 - 5.6 % 09/18/2024 8:23 AM EST [facility] Comment:[place] Diabetes As sociation guidelines indicate that patients with HgbA1c in the range 5.7-6.4% are at increased risk for development of diabetes, and intervention by lifestyle modification may be beneficial. HgbA1c greater or equal to 6.5% is considered diagnostic of diabetes. Estimated Average Glucose 111 mg/dL 09/18/2024 8:23 AM EST [facility] Comment:eAG: (Estimated aver age glucose) is a calculated value from HgbA1c and is account service representative of the average blood glucose level in the last 2-3 month period. Blood BLOOD SPECIMEN / Unknown Venipuncture / Unknown 09/18/2024 4:51 AM EST 09/18/2024 6:28 AM EST us Hector Juan MD LABORATORY Final Res ult [facility] [address] [facility] Desk [address] [address], [place] * COLONOSCOPY (THERAPEUTIC) (05/14/2024 4:09 PM EDT) Anatomical Region Laterality Modality Other 05/14/2024 4:09 PM EDT Narrative 05/15/2024 2:37 PM EDT Q3 Patient Name: José Miguel Antonio Procedure Date: 05/14/2024 4:09 PM Date of : 1940 Admit Type: Inpatient Age: 84 Gender: Male Note Status: Finalized Attending MD: Vel Carpio MD, [id number] Procedure: Colonoscopy Indications: Hematochezia Providers: Vel Carpio [...] the patient. Procedure Code(s): --- Professional --- 48308, Colonoscopy, flexible; diagnostic, including collection of specimen(s) by brushing or washing, when performed (separate procedure) CPT copyright 2020 [place] [employer]. All rights reserved. Attending Participation: I was present and participated during the entire procedure, including non-boss portions. Scope In: 4:10:28 PM Scope Out: 4:27:33 PM MD Vel Garg MD 05/15/2024 2:34:02 PM This report has been signed electronically by Vel Carpio MD Number of Addenda: 0 Note Initiated On: 05/14/2024 4:09 PM [facility] Provider DIGESTIVE DISEASE Final Result * (ABNORMAL) LIPID PANEL, NONFASTING (02/16/2024 10:30 AM EDT) Total Cholesterol, Nonfasting 118 <200 mg/dL 02/16/2024 2:44 PM EDT [facility] Comment: <200 mg/dL, Desirable 200-239 mg/dL, Borderline high >239 mg/dL, High Triglycerides, Nonfasting 74 <150 mg/dL 02/16/2024 2:44 PM EDT [facility] Comment: <150 mg/dL, Normal 150-199 mg/dL, Borderline high 200-499 mg/dL, High >499 mg/dL, Very high HDL Cholesterol, Nonfasting 28(L) >39 mg/dL 02/16/2024 2:44 PM T [facility] Comment: 40-59 mg/dL, Acceptable >59 mg/dL, High: Negative risk factor for coronary heart disease <40 mg/dL, Low: Positive risk factor for coronary heart disease LDL Cholesterol Calculated, Nonfasting 75 <100 mg/dL 02/16/2024 2:44 PM EDT [facility] Comment: <100 mg/dL, Optimal 100-129 mg/dL, Near optimal/above optimal 130-159 mg/dL, Borderline high 160-189 mg/dL, High >189 mg/dL, Very high Secondary prevention optimal LDL Cholesterol levels are recommended to be < 70 mg/dL Non HDL Cholesterol, Nonfasting 90 <130 mg/dL 02/16/2024 2:44 PM EDT [facility] Comment: <130 mg/dL, Optimal 130-159 mg/dL, Near optimal/above optimal 160-189 mg/dL, Borderline high 190-219 mg/dL, High >219 mg/dL, Very high Secondary prevention optimal non HDL Cholesterol levels are recommended to be <100 mg/dL VLDL Cholesterol, Nonfasting 15 <30 mg/dL 02/16/2024 2:44 PM EDT [facility] Total Chol/HDL Ratio, Nonfasting 4.21 <5.10 mg/dL 02/16/2024 2:44 PM EDT [facility] LDL/HDL Ratio, Nonfasting 2.68(H) <2.54 mg/dL 02/16/2024 2:44 PM EDT [facility] Comment: Reference: 1. National Cholesterol Education Program ATP III Guideline At-A-Glance Quick Desk Reference: National Heart, Lung, and Blood [place]. National Institutes of Health. 2001: NIH Publication No. 01-3305. 2. An International Atherosclerosis Society position paper: global recommendations for the management of dyslipidemia: executive summary, Atherosclerosis. 2014: 232(2):410-413. Blood BLOOD SPECIMEN / Unknown Venipuncture / Unknown 02/16/2024 10:30 AM EDT 02/16/2024 10:54 AM EDT us Leonardo Nino MD LABORATORY Final Result [facility] [address] [address] [address] from Last 3 Months or Most Recently Relevant to Health Maintenance Insurance MEDICARE MMO MEDICARE SUPPLEMENT * Guarantor: SNF,[employer]UN[employer]ERS [facility] Account Type Relation to Patient Date of [...] Code Order Discussed With: Patient Care Teams Big Machine Consultant Relationship Specialty Start Date End Date Samm Serrano MD PCP - General Family Medicine 05/30/12 Tom Gonzalez [address] [place] [address] Primary Staff Physician Cardiology 12/02/18 Andreas Pierre MD [address] [place], [place] [phone] Primary Staff Physician Cardiology 04/26/23 Virgil Carrillo MD [address] [place], [place] [phone] Primary Staff Physician Cardiology 10/29/23 Jethro Mendoza MD [address] [place] [address] Primary Staff Physician Cardiology 12/26/23 Carmela Kinney MD [address] [place], [place] [phone] Primary Staff Physician Cardiology 01/10/24
--- OUTSIDE RECORDS SUMMARY | 2025-04-08 10:55 | XMS_ITS | Encounter Summary ---
Author Organization [facility] Address [address] [place] [address] Care Team Providers Care Foster Winder Name Role Phone Samm Serrano MD Primary Care Provider [phone] Tom Gonzalez Unavailable [phone] Andreas Pierre MD Unavailable Virgil Carrillo MD Unavailable Jethro Mendoza MD Unavailable Isaías Kinney MD Unavailable Source Comments In the event this information is protected by the Federal Confidentiality of Alcohol and Drug AbusePatient Records regulations: The Federal rules restrict any use of the information to criminally investigate or prosecute any alcohol or drug abuse patient.[facility] Encounter Details Date Type Department Care Team (Late st Contact Info) Description 08/03/2024 Get Medical Advice Cardiology [address] [place], [place] [phone] Isaías Kinney MD [address] [place] [address] Hospital Stay Follow Up Social History Tobacco Use Types Packs/Day Years Used Date Smoking Tobacco: Former Cigarettes 1 10 0 04/28/1972 - 04/28/1982 Pipe Passive Smoke Exposure: Never Smokeless Tobacco: Never Alcohol Use Standard Drinks/Week Comments Yes 0 (1 standard drink = 0.6 oz pur e alcohol) rarely [facility] Utilities Answer Date Recorded In [...] in the past 12 m [facility], were you homeless or living in a half-way (including now)? Yes 07/22/2024 Area Deprivation Index Answer Date Rich rded National Score (1-100), lower number is lower ri sk 52 02/05/2024 State Score (1-10), lower number is lower risk 3 02/05/2024 Data from: https://www.neighborhoodatlas.medicine.[facility] [place].edu/. Last address used for calculation [address] [place] [address] [address] 02/05/2024 Sex and Gender Information [...] 06/30/2025 10:00 AM EDT Office Visit Cardiology [address] [place] [address] Isaías Kinney MD [address] [place], [place] [phone] DX: Chronic diastolic heart failure 09/20/2025 8:15 AM EST Procedure Cardiology [address] [place] [address] Dx. Atherosclerotic heart disease of [place] coronary artery with other forms of angina pectoris 09/20/2025 9:00 AM EST Appointment Cardiology [address] [place] [phone] Dx. Atherosclerotic heart disease of [place] coronary artery with other forms of angina pectoris 09/20/2025 9:45 AM EST Office Visit Cardiology [address] [place] [address] Nj Wei MD [address] [place], [place] [phone] Dx. Atherosclerotic heart disease of [place] coronary artery with other forms of angina pectoris documented as of this encounter Goals Goal Patient Goal Type Associated Problems Recent Progress Patient-Stated? Author Blood Pressure < 130/80 Blood Pressure 134/63( 025 3:00 PM EDT) No Lidia Lo, ARIES documented as of this encounter Visit Diagnoses Not on filedocumented in this encounter Care Teams Foster Winder Relationship Specialty Start Date End Date Samm Serrano MD PCP - General Family Medicine 05/30/12 Tom Gonzalez [address] [place] [address] Primary Staff Physician Cardiology 12/02/18 Andreas Pierre MD [address] [place] [address] Primary Staff Physician Cardiology 04/26/23 Virgil Carrillo MD [address] [place] [phone] Primary Staff Physician Cardiology 10/29/23 Jethro Mendoza MD [address] [place] [address] Primary Staff Physician Cardiology 12/26/23 Isaías Kinney MD [address] [phone] Primary Staff Physician Cardiology 01/10/24 documented as of this encounter
--- OUTSIDE RECORDS SUMMARY | 2025-04-08 10:55 | XMS_ITS | Encounter Summary ---
Author Organization [facility] [employer] s tem Address [id number] [address] [place] [address] Care Team Providers Care Gypsum Block Setter Name Role Phone Samm Serrano MD Primary Care Provider [phone] Encounter Details Date Type Department Care Team (Late st Contact Info) Description 01/25/2025 Lab Requisition [facility] - Lab [address] [place] [phone] Samm Serrano MD [address] [place] [address] 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 disease, or unspecified chronic kidney disease (CMS-HCC); Chronic systolic (congestive) heart failure ([facility]-HCC) Social History Tobacco Use Types Packs/Day [...] week 08/17/2021 How often do you attend [facility] or pentecostalism services? Never 08/17/2021 Do you belong to any clubs o r organizations such as samaritan groups, unions, fraternal or athletic groups, or [...] Answer Date Recorded Total Score 0 08/17/2021 [facility] - [...] Recorded Do you need help finding a [facility] and/or a training program? [...] - 11 x10E9/L 01/25/2025 12:48 PM EDT [facility] RBC Count 3.62(L) 4.1 - 5.7 X10E12/L 01/25/2025 12:48 PM EDT [facility] Hemoglobin 11.2(L) 13 - 17 g/dL 01/25/2025 12:48 PM EDT [facility] Hematocrit 33.7(L) 39 - 50 % 01/25/2025 12:48 PM EDT [facility] MCV 93 80 - 100 fL 01/25/2025 12:48 PM EDT [facility] MCH 31.0 27 - 34 pg 01/25/2025 12:48 PM EDT [facility] MCHC 33.2 32 - 36 g/dL 01/25/2025 12:48 PM EDT [facility] RDW 17.5(H) 11.5 - 15 % 01/25/2025 12:48 PM EDT [facility] Platelet Count 161 150 - 450 X10E9/L 01/25/2025 12:48 PM EDT [facility] MPV 7.9 7 - 12 fL 01/25/2025 12:48 PM EDT [facility] Neutrophils % 65.9 % 01/25/2025 12:48 PM EDT [facility] Lymphocytes % 15.2 % 01/25/2025 12:48 PM EDT [facility] Monocytes % 12.1 % 01/25/2025 12:48 PM EDT [facility] Eosinophils % 6.3 % 01/25/2025 12:48 PM EDT [facility] Basophils % 0.5 % 01/25/2025 12:48 PM EDT [facility] Neutrophils Absolute (A) 3.3 1.5 - 6.6 10*3/uL 01/25/2025 12:48 PM EDT [facility] Lymphocytes Absolute 0.8(L) 1.0 - 3.5 10*3/uL 01/25/2025 12:48 PM EDT [facility] Monocytes Absolute 0.6 0.0 - 0.9 10*3/uL 01/25/2025 12:48 PM EDT [facility] Eosinophils Absolute 0.3 0.0 - 0.4 10*3/uL 01/25/2025 12:48 PM EDT [facility] Basophils Absolute 0.0 0.0 - 0.2 10*3/uL 01/25/2025 12:48 PM EDT [facility] Differential Type AUTOMATED DIFFERENTIAL 01/25/2025 12:48 PM EDT [facility] Blood Venous blood / Unknown 01/25/2025 11:40 AM EDT 01/25/2025 12:16 PM EDT us Samm Serrano MD LAB BLOOD ORDERABLES Final Resu lt [facility] [address] [place] [address], * (ABNORMAL) Comprehensive metabolic panel (01/25/2025 11:40 AM EDT) SODIUM 135 134 - 146 mmol/L 01/25/2025 12:48 PM EDT [facility] POTASSIUM 4.0 3.5 - 5.0 mmol/L 01/25/2025 12:48 PM EDT [facility] CHLORIDE 104 98 - 109 mmol/L 01/25/2025 12:48 PM EDT [facility] CARBON DIOXIDE 24 22 - 32 mmol/L 01/25/2025 12:48 PM EDT [facility] ANION GAP 7 5 - 15 mmol/L 01/25/2025 12:48 PM EDT [facility] BLOOD UREA NITROGEN 47(H) 5 - 27 mg/dL 01/25/2025 12:48 PM EDT [facility] CREATININE 2.01(H) 0.70 - 1.20 mg/dL 01/25/2025 12:48 PM EDT [facility] Comment:METHOD TRACEABLE TO IDMS STANDARD GLUCOSE 97 65 - 99 mg/dL 01/25/2025 12:48 PM EDT [facility] CALCIUM 8.4(L) 8.5 - 10.5 mg/dL 01/25/2025 12:48 PM EDT [facility] TOTAL PROTEIN 6.9 6.0 - 8.0 g/dL 01/25/2025 12:48 PM EDT [facility] ALBUMIN 3.3 3.2 - 5.3 g/dL 01/25/2025 12:48 PM EDT [facility] ALKALINE PHOSPHATASE 122 39 - 130 U/L 01/25/2025 12:48 PM EDT [facility] AST 22 <=41 U/L 01/25/2025 12:48 PM EDT [facility] ALT 11 <=40 U/L 01/25/2025 12:48 PM EDT [facility] BILIRUBIN,TOTAL 0.9 0.3 - 1.2 mg/dL 01/25/2025 12:48 PM EDT [facility] EGFR Non-Race Dependent 33(L) >=60 ml/min/1.7 3sq.m 01/25/2025 12:48 PM EDT [facility] Comment: eGFR not reported due to non-numeric value for Creatinine. Reported eGFR is based on the CKD-EPI 2020 equation that does not use a race coefficient. Blood Venous blood / Unknown 01/25/2025 11:40 AM EDT 01/25/2025 12:16 PM EDT us Samm Serrano MD LAB BLOOD ORDERABLES Final Resu lt [facility] [address] [place] [address] documented in this encounter Visit Diagnoses Diagnosis [...] documented as of this encounter Care Teams Gypsum Block Setter Relationship Specialty Start Date End Date Samm Serrano MD PCP - General Family Medicine 02/26/24 documented as of this encounter
--- OUTSIDE RECORDS SUMMARY | 2025-04-08 10:55 | XMS_ITS | Encounter Summary ---
Author Organization [facility] Address [address] [place] [address] Care Team Providers Care Make Ready Worker Name Role Phone Samm Serrano MD Primary Care Provider [phone] Encounter Details Date Type Department Care Team (Late st Contact Info) Description 03/25/2025 Bamboo flowsheet [facility] [address] [place] [phone] Rohit Covington DPM [address] [place], [place] [phone] Social History Tobacco Use Types Packs/Day Years Used Date Smoking Tobacco: Unknown Alcohol Use Standard Drinks/Week Comments Not Currently [...] 05/13/2025 3:35 PM EDT Office Visit [facility] [address] [facility] [address] [place] [address] Krystal Turner MD [address] [place] [address] 07/07/2025 1:00 PM EDT Procedure Visit [facility] [address] [place] [phone] Rohit Covington, DPPaulina [address] [place], [place] [phone] documented as of this encounter Visit Diagnoses Not on filedocumented in this encounter Care Teams Make Ready Worker Relationship Specialty Start Date End Date Samm Serrano MD [address] [place] [address] PCP - General Family Medicine 03/24/25 documented as of this encounter
--- OUTSIDE RECORDS SUMMARY | 2025-04-08 10:55 | XMS_ITS | Encounter Summary ---
Author Organization [facility] Address [address] [place] [address] Care Team Providers Care Locomotive Mechanic Name Role Phone Samm Serrano MD Primary Care Provider [phone] Tom Gonzalez Unavailable [phone] Andreas Pierre MD Unavailable Virgil Carrillo MD Unavailable Jethro Mendoza MD Unavailable Isaías Kinney MD Unavailable [phone] Source Comments In the event this information is protected by the Federal Confidentiality of Alcohol and Drug AbusePatient Records regulations: The Federal rules restrict any use of the information to criminally investigate or prosecute any alcohol or drug abuse patient.[facility] Encounter Details Date Type Department Care Team (Late st Contact Info) Description 02/11/2024 Patient Msg Cardiology [address] [place] [address] Isaías Kinney MD [address] [place] [address] Appointment Cancellation Request Social History Tobacco Use [...] is lower risk 3 02/05/2024 Data from: https://www.neighborhoodatlas.medicine.[facility].edu/. Last address used for calculation [address] 02/05/2024 Sex and [...] 06/30/2025 10:00 AM EDT Office Visit Cardiology [address] [place] [address] Isaías Kinney MD [address] [place] [address] DX: Chronic diastolic heart failure 09/20/2025 8:15 AM EST Procedure Cardiology [address] [place] [address] Dx. Atherosclerotic heart disease of [place] coronary artery with other forms of angina pectoris 09/20/2025 9:00 AM EST Appointment Cardiology [address] [place] [address] Dx. Atherosclerotic heart disease of [place] coronary artery with other forms of angina pectoris 09/20/2025 9:45 AM EST Office Visit Cardiology [address] [place] [address] Nj Wei MD [address] [place] [address] Dx. Atherosclerotic heart disease of [place] coronary artery with other forms of angina pectoris documented as of this encounter Goals Goal Patient Goal Type Associated Problems Recent Progress Patient-Stated? Author Blood Pressure < 130/80 Blood Pressure 134/63( 025 3:00 PM EDT) No Lidia Lo RN documented as of this encounter Visit Diagnoses Not on filedocumented in this encounter Care Teams Locomotive Mechanic Relationship Specialty Start Date End Date Samm Serrano MD PCP - General Family Medicine 05/30/12 Tom Gonzalez [address] [facility] [place] [address] Primary Staff Physician Cardiology 12/02/18 Andreas Pierre MD [address] [place] [address] Primary Staff Physician Cardiology 04/26/23 Virgil Carrillo MD [address] [place] [address] Primary Staff Physician Cardiology 10/29/23 Jethro Mendoza MD [address] [place] [address] Primary Staff Physician Cardiology 12/26/23 Isaías Kinney MD [address] [place] [address] Primary Staff Physician Cardiology 01/10/24 documented as of this encounter
--- OUTSIDE RECORDS SUMMARY | 2025-04-08 10:55 | XMS_ITS | Encounter Summary ---
Author Organization [facility] in[employer] s tem Address [id number] [address] [place] [address] Care Team Providers Care Mud Jack Nozzle Worker Name Role Phone Samm Serrano MD Primary Care Provider [phone] Encounter Details Date Type Department Care Team (Late st Contact Info) Description 01/11/2025 Lab Requisition [facility] - Lab [address] [place] [phone] Samm Serrano MD [address] [place] [address] Hypokalemia; Chronic kidney disease, unspecified Social History [...] often do you attend chur ch or religion services? Never 08/17/2021 Do you belong to any clubs o r organizations such as yarsani groups, unions, fraternal or athletic groups, or [...] Answer Date Recorded Total Score 0 08/17/2021 [facility] - Occupational Stress Questionnaire Answer [...] - 11 x10E9/L 01/11/2025 2:[address] [facility] RBC Count 3.87(L) 4.1 - 5.7 X10E12/L 01/11/2025 2:[address] [facility] Hemoglobin 11.8(L) 13 - 17 g/dL 01/11/2025 2:[address] [facility] Hematocrit 36.0(L) 39 - 50 % 01/11/2025 2:[address] [facility] MCV 93 80 - 100 fL 01/11/2025 2:[address] [facility] MCH 30.6 27 - 34 pg 01/11/2025 2:[address] [facility] MCHC 32.9 32 - 36 g/dL 01/11/2025 2:[address] [facility] RDW 18.5(H) 11.5 - 15 % 01/11/2025 2:[address] [facility] Platelet Count 148(L) 150 - 450 X10E9/L 01/11/2025 2:[address] [facility] MPV 8.5 7 - 12 fL 01/11/2025 2:[address] [facility] Neutrophils % 60.7 % 01/11/2025 2:[address] [facility] Lymphocytes % 21.6 % 01/11/2025 2:[address] [facility] Monocytes % 10.7 % 01/11/2025 2:[address] [facility] Eosinophils % 6.5 % 01/11/2025 2:[address] [facility] Basophils % 0.5 % 01/11/2025 2:[address] [facility] Neutrophils Absolute (A) 3.1 10*3/uL 01/11/2025 2:[address] [facility] Lymphocytes Absolute 1.1 10*3/uL 01/11/2025 2:[address] [facility] Monocytes Absolute 0.6 10*3/uL 01/11/2025 2:[address] [facility] Eosinophils Absolute 0.3 10*3/uL 01/11/2025 2:[address] [facility] Basophils Absolute 0.0 10*3/uL 01/11/2025 2:[address] [facility] Differential Type AUTOMATED DIFFERENTIAL 01/11/2025 2:[address] [facility] Blood Venous blood / Unknown 01/11/2025 1:10 PM EDT 01/11/2025 2:31 PM EDT us Samm Serrano MD LAB BLOOD ORDERABLES Final Resu lt [facility] [address] [facility] [place] [address], * (ABNORMAL) Comprehensive metabolic panel (01/11/2025 1:10 PM EDT) SODIUM 136 134 - 146 mmol/L 01/11/2025 2:[address] [facility] POTASSIUM 4.1 3.5 - 5.0 mmol/L 01/11/2025 2:[address] [facility] CHLORIDE 103 98 - 109 mmol/L 01/11/2025 2:[address] [facility] CARBON DIOXIDE 26 22 - 32 mmol/L 01/11/2025 2:[address] [facility] ANION GAP 7 5 - 15 mmol/L 01/11/2025 2:[address] [facility] BLOOD UREA NITROGEN 49(H) 5 - 27 mg/dL 01/11/2025 2:[address] [facility] CREATININE 1.80(H) 0.70 - 1.20 mg/dL 01/11/2025 2:[address] [facility] Comment:METHOD TRACEABLE TO IDMS STANDARD GLUCOSE 80 65 - 99 mg/dL 01/11/2025 2:[address] [facility] CALCIUM 8.7 8.5 - 10.5 mg/dL 01/11/2025 2:[address] [facility] TOTAL PROTEIN 7.3 6.0 - 8.0 g/dL 01/11/2025 2:[address] [facility] ALBUMIN 3.4 3.2 - 5.3 g/dL 01/11/2025 2:[address] [facility] ALKALINE PHOSPHATASE 126 39 - 130 U/L 01/11/2025 2:[address] [facility] AST 21 <=41 U/L 01/11/2025 2:[address] [facility] ALT 13 <=40 U/L 01/11/2025 2:[address] [facility] BILIRUBIN,TOTAL 0.9 0.3 - 1.2 mg/dL 01/11/2025 2:[address] [facility] EGFR Non-Race Dependent 37(L) >=60 ml/min/1.7 3sq.m 01/11/2025 2:[address] [facility] Comment: eGFR not reported due to non-numeric value for Creatinine. Reported eGFR is based on the CKD-EPI 2020 equation that does not use a race coefficient. Blood Venous blood / Unknown 01/11/2025 1:10 PM EDT 01/11/2025 2:31 PM EDT us Samm Serrano MD LAB BLOOD ORDERABLES Final Resu lt [facility] [address] [facility] [place] [address], documented in this encounter Visit Diagnoses Diagnosis Hypokalemia Hypopotassemia Chronic kidney disease, unspecified documented in this encounter Additional Health Concerns Assessment Noted Time PHQ-9 Depression Total Score: 0 08/17/20 21 12:12 PM EST documented as of this encounter Care Teams Mud Jack Nozzle Worker Relationship Specialty Start Date End Date Samm Serrano MD PCP - General Family Medicine 02/26/24 documented as of this encounter
--- OUTSIDE RECORDS SUMMARY | 2025-04-08 10:55 | XMS_ITS | Encounter Summary ---
Author Organization [facility] Address [address] [place] [address] Care Team Providers Care Cooker Operator Name Role Phone Samm Serrano MD Primary Care Provider [phone] Encounter Details Date Type Department Care Team (Latest Contact Info) Description 03/25/2025 Travel Social History Tobacco Use Types Packs/Day [...] Encounters Date Type Department Care Team (Late Contact Info) Description 05/13/2025 3:35 PM EDT Office Visit [facility] [address] [facility] [address] [place] [address] Krystal Turner MD [address] [facility] [address] [place] [address] 07/07/2025 1:00 PM EDT Procedure Visit [facility] [address] [place] [phone] Rohit Covington DPM [address] [place], [place] [phone] documented as of this encounter Visit Diagnoses Not on filedocumented in this encounter Care Teams Cooker Operator Relationship Specialty Start Date End Date Samm Serrano MD [address] [place] [phone] PCP - General Family Medicine 03/24/25 documented as of this encounter
--- OUTSIDE RECORDS SUMMARY | 2025-04-08 10:55 | XMS_ITS | Encounter Summary ---
Author Organization Address [address] [place] [address] Care Team Providers Care Bean Sorter Name Role Phone Samm Serrano MD Primary Care Provider [phone] Tom Gonzalez Unavailable [phone] Andreas Pierre MD Unavailable Virgil Carrillo MD Unavailable Jethro Mendoza MD Unavailable Isaías Kinney MD Unavailable [phone] Source Comments In the event this information is protected by the Federal Confidentiality of Alcohol and Drug AbusePatient Records regulations: The Federal rules restrict any use of the information to criminally investigate or prosecute any alcohol or drug abuse patient. Encounter Details Date Type Department Care Team (Late st Contact Info) Description 03/03/2025 Get Medical Advice Cardiology [address] [place], [place] [phone] Isaías Kinney MD [address] [place] [address] Urgent Social History Tobacco Use Types Packs/Day Years Used Date Smoking Tobacco: Former Cigarettes 1 10 0 04/28/1972 - 04/28/1982 Pipe Passive Smoke Exposure: Never Smokeless Tobacco: Never Alcohol Use Standard Drinks/Week Comments Not Currently 0 (1 standard drink = 0.6 oz pur e alcohol) rarely [facility] Utilities Answer Date Recorded In the past 12 months has th e [employer], gas, oil, or water [employer] threatened to shut off services in your [...] any time in the past 12 m [facility], were you homeless or living in a mcfp (including now)? Yes 07/22/2024 Area Deprivation Index Answer Date Rich rded National Score (1-100), lower number is lower ri sk 52 02/05/2024 State Score (1-10), lower number is lower risk 3 02/05/2024 Data from: https://www.neighborhoodatlas.medicine.[facility].edu/. Last address used for calculation [address] [...] Telephone Encounter - Mary Bourgeois RN - 03/04/2025 3:15 PM EDT Isaías Kinney MD to Me (Selected Message) 03/04/25 1:19 PM Yes, did he end up getting the cardioversion? I'd check in with them when able. I can add them on as a virtual. -Andreas documented in this encounter Plan of Treatment Upcoming Encounters Date Type Department Care Team (Latest Contact Info) Description 06/30/2025 10:00 AM EDT Office Visit Cardiology [address] [place] [address] Isaías Kinney MD [address] [place] [address] DX: Chronic diastolic heart failure 09/20/2025 8:15 AM EST Procedure Cardiology [address] [place] [address] Dx. Atherosclerotic heart disease of [place] coronary artery with other forms of angina pectoris 09/20/2025 9:00 AM EST Appointment Cardiology [address] [place] [address] Dx. Atherosclerotic heart disease of [place] coronary artery with other forms of angina pectoris 09/20/2025 9:45 AM EST Office Visit Cardiology [address] [place] [address] Nj Wei MD [address] [place] [address] Dx. Atherosclerotic heart disease of [place] coronary artery with other forms of angina pectoris documented as of this encounter Goals Goal Patient Goal Type Associated Problems Recent Progress Patient-Stated? Author Blood Pressure < 130/80 Blood Pressure 134/63( 025 3:00 PM EDT) No Lidia Lo RN documented as of this encounter Visit Diagnoses Not on filedocumented in this encounter Care Teams Bean Sorter Relationship Specialty Start Date End Date Samm Serrano MD PCP - General Family Medicine 05/30/12 Tom Gonzalez [address] [place] [address] Primary Staff Physician Cardiology 12/02/18 Andreas Pierre MD [address] [place] [address] Primary Staff Physician Cardiology 04/26/23 Virgil Carrillo MD [address] [place] [phone] Primary Staff Physician Cardiology 10/29/23 Jethro Mendoza MD [address] [place] [address] Primary Staff Physician Cardiology 12/26/23 Isaías Kinney MD [address] [place] [phone] Primary Staff Physician Cardiology 01/10/24 documented as of this encounter
--- OUTSIDE RECORDS SUMMARY | 2025-04-08 10:55 | XMS_ITS | Encounter Summary ---
Author Organization [facility] Address [address] [place] [address] Care Team Providers Care Director Of Critical Care Name Role Phone Samm Serrano MD Primary Care Provider +-[phone] Tom Gonzalez Unavailable [phone] Andreas Pierre MD Unavailable Virgil Carrillo MD Unavailable Jethro Mendoza MD Unavailable Isaías Kinney MD Unavailable [phone] Source Comments In the event this information is protected by the Federal Confidentiality of Alcohol and Drug AbusePatient Records regulations: The Federal rules restrict any use of the information to criminally investigate or prosecute any alcohol or drug abuse patient.[facility] Encounter Details Date Type Department Care Team (Late st Contact Info) Description 07/10/2024 Get Medical Advice Cardiology [address] [place], [place] [phone] Isaías Kinney MD [address] [place] [address] Medication Question Social History Tobacco Use Types Packs/Day Years Used Date Smoking Tobacco: Former Cigarettes 1 10 0 04/28/1972 - 04/28/1982 Pipe Passive Smoke Exposure: Never Smokeless Tobacco: Never Alcohol Use Standard Drinks/Week Comments Yes 0 (1 standard drink = 0.6 oz pur e alcohol) rarely [facility] Utilities Answer Date Recorded In the past 12 months has th e [employer], gas, oil, or water company threatened to [...] any time in the past 12 m [facility], were you homeless or living in a jail (including now)? No 05/11/2024 Area Deprivation Index Answer Date Rich rded National Score (1-100), lower number is lower ri sk 52 02/05/2024 State Score (1-10), lower number is lower risk 3 02/05/2024 Data from: https://www.neighborhoodatlas.medicine.[facility].edu/. Last address used for calculation [address] [place] [address] [address] 02/05/2024 Sex and Gender Information [...] 06/30/2025 10:00 AM EDT Office Visit Cardiology [address] [place] [address] Isaías Kinney MD [address] [place], [place] [phone] DX: Chronic diastolic heart failure 09/20/2025 8:15 AM EST Procedure Cardiology [address] [place] [address] Dx. Atherosclerotic heart disease of [place] coronary artery with other forms of angina pectoris 09/20/2025 9:00 AM EST Appointment Cardiology [address] [place] [address] Dx. Atherosclerotic heart disease of [place] coronary artery with other forms of angina pectoris 09/20/2025 9:45 AM EST Office Visit Cardiology [address] [place] [address] Nj Wei MD [address] [place] [address] Dx. Atherosclerotic heart disease of [place] coronary artery with other forms of angina pectoris documented as of this encounter Goals Goal Patient Goal Type Associated Problems Recent Progress Patient-Stated? Author Blood Pressure < 130/80 Blood Pressure 134/63( 025 3:00 PM EDT) No Lidia Lo, ARIES documented as of this encounter Visit Diagnoses Not on filedocumented in this encounter Care Teams Director Of Critical Care Relationship Specialty Start Date End Date Samm Serrano MD PCP - General Family Medicine 05/30/12 Tom Gonzalez [address] [place] [address] Primary Staff Physician Cardiology 12/02/18 Andreas Pierre MD [address] [place] [address] Primary Staff Physician Cardiology 04/26/23 Virgil Carrillo MD [facility] [place] [phone] Primary Staff Physician Cardiology 10/29/23 [place] [address] [place] [address] Primary Staff Physician Cardiology 12/26/23 Isaías Kinney MD [address] [place] [phone] Primary Staff Physician Cardiology 01/10/24 documented as of this encounter
--- OUTSIDE RECORDS SUMMARY | 2025-04-08 10:55 | XMS_ITS | Encounter Summary ---
Author Organization [facility] Address [address] [place] [address] Care Team Providers Care Salesperson Pianos [employer] Organs Name Role Phone Samm Serrano MD Primary Care Provider +-4 Tom Gonzalez Unavailable [phone] Andreas Pierre MD Unavailable Virgil Carrillo MD Unavailable Jethro Mendoza MD Unavailable Isaías Kinney MD Unavailable [phone] Source Comments In the event this information is protected by the Federal Confidentiality of Alcohol and Drug AbusePatient Records regulations: The Federal rules restrict any use of the information to criminally investigate or prosecute any alcohol or drug abuse patient.[facility] Encounter Details Date Type Department Care Team (Late st Contact Info) Description 08/14/2024 Patient Msg Cardiology [address] [place], [place] [phone] Isaías Kinney MD [address] [place] [address] Eliquis Social History Tobacco Use Types Packs/Day Years Used Date Smoking Tobacco: Former Cigarettes 1 10 0 04/28/1972 - 04/28/1982 Pipe Passive Smoke Exposure: Never Smokeless Tobacco: Never Alcohol Use Standard Drinks/Week Comments Yes 0 (1 standard drink = 0.6 oz pur e alcohol) rarely [facility] Utilities Answer Date Recorded In the [...] is lower risk 3 02/05/2024 Data from: https://www.neighborhoodatlas.medicine.[facility].edu/. Last address used for calculation [address] [place] [address] [address] 02/05/2024 Sex and Gender Information [...] 10:00 AM EDT Office Visit Cardiology [address] [place] [address] Isaías Kinney MD [address] [place], [place] [phone] DX: Chronic diastolic heart failure 09/20/2025 8:15 AM EST Procedure Cardiology [address] [place] [address] Dx. Atherosclerotic heart disease of [place] coronary artery with other forms of angina pectoris 09/20/2025 9:00 AM EST Appointment Cardiology [address] [place] [address] Dx. Atherosclerotic heart disease of [place] coronary artery with other forms of angina pectoris 09/20/2025 9:45 AM EST Office Visit Cardiology [address] [place] [address] Nj Wei MD [address] [place], [place] [phone] Dx. Atherosclerotic heart disease of [place] coronary artery with other forms of angina pectoris documented as of this encounter Goals Goal Patient Goal Type Associated Problems Recent Progress Patient-Stated? Author Blood Pressure < 130/80 Blood Pressure 134/63( 025 3:00 PM EDT) No Lidia Lo, ARIES documented as of this encounter Visit Diagnoses Not on filedocumented in this encounter Care Teams Salesperson Pianos And Organs Relationship Specialty Start Date End Date Samm Serrano MD PCP - General Family Medicine 05/30/12 Tom Gonzalez [address] [place] [address] Primary Staff Physician Cardiology 12/02/18 Andreas Pierre MD [address] [place] [address] Primary Staff Physician Cardiology 04/26/23 Virgil Carrillo MD [address] [place] [phone] Primary Staff Physician Cardiology 10/29/23 Jethro Mendoza MD [address] [place] [address] Primary Staff Physician Cardiology 12/26/23 Isaías Kinney MD [address] [place] [phone] Primary Staff Physician Cardiology 01/10/24 documented as of this encounter
--- OUTSIDE RECORDS SUMMARY | 2025-04-08 10:55 | XMS_ITS | Encounter Summary ---
Author Organization [facility] Address [address] [place] [address] Care Team Providers Care Signal Person Name Role Phone Samm Serrano MD Primary Care Provider +-4 Tom Gonzalez Unavailable [phone] Andreas Pierre MD Unavailable Virgil Carrillo MD Unavailable Jethro Mendoza MD Unavailable Isaías Kinney MD Unavailable [phone] Source Comments In the event this information is protected by the Federal Confidentiality of Alcohol and Drug AbusePatient Records regulations: The Federal rules restrict any use of the information to criminally investigate or prosecute any alcohol or drug abuse patient.[facility] Encounter Details Date Type Department Care Team (Late st Contact Info) Description 08/06/2024 Patient Msg Cardiology [address] [place], [place] [phone] Provider, Juliann Marvel Social History Tobacco Use Types Packs/Day Years Used Date Smoking Tobacco: Former Cigarettes 1 10 0 04/28/1972 - 04/28/1982 Pipe Passive Smoke Exposure: Never Smokeless Tobacco: Never Alcohol Use Standard Drinks/Week Comments Yes 0 (1 standard drink = 0.6 oz pur e alcohol) rarely [facility] Utilities Answer Date Recorded In [...] is lower risk 3 02/05/2024 Data from: https://www.neighborhoodatlas.medicine.[facility]/. Last address used for calculation [address] [...] 10:00 AM EDT Office Visit Cardiology [address] [place] [address] Isaías Kinney MD [address] [place] [address] DX: Chronic diastolic heart failure 09/20/2025 8:15 AM EST Procedure Cardiology [address] [place] [address] Dx. Atherosclerotic heart disease of [place] coronary artery with other forms of angina pectoris 09/20/2025 9:00 AM EST Appointment Cardiology [address] [place], [place] [phone] Dx. Atherosclerotic heart disease of [place] coronary artery with other forms of angina pectoris 09/20/2025 9:45 AM EST Office Visit Cardiology [address] [place] [address] Nj Wei MD [address] [place] [address] Dx. Atherosclerotic heart disease of [place] coronary artery with other forms of angina pectoris documented as of this encounter Goals Goal Patient Goal Type Associated Problems Recent Progress Patient-Stated? Author Blood Pressure < 130/80 Blood Pressure 134/63( 025 3:00 PM EDT) Lidia Soto, AIRES documented as of this encounter Visit Diagnoses Not on filedocumented in this encounter Care Teams Signal Person Relationship Specialty Start Date End Date Samm Serrano MD PCP - General Family Medicine 05/30/12 Tom Gonzalez [address] [place] [address] Primary Staff Physician Cardiology 12/02/18 Andreas Pierre MD [address] [place] [address] Primary Staff Physician Cardiology 04/26/23 Virgil Carrillo MD [address] [place] [address] Primary Staff Physician Cardiology 10/29/23 Jethro Mendoza MD [address] [place] [address] Primary Staff Physician Cardiology 12/26/23 Isaías Kinney MD [address] [place] [address] Primary Staff Physician Cardiology 01/10/24 documented as of this encounter
--- OUTSIDE RECORDS SUMMARY | 2025-04-08 10:55 | XMS_ITS | Encounter Summary ---
Author Organization [facility] Address [address] [place] [address] Care Team Providers Care Credit Relationship Manager Name Role Phone Samm Serrano MD Primary Care Provider +-4 Tom Gonzalez Unavailable [phone] Andreas Pierre MD Unavailable Virgil Carrillo MD Unavailable Jethro Mendoza MD Unavailable Isaías Kinney MD Unavailable [phone] Source Comments In the event this information is protected by the Federal Confidentiality of Alcohol and Drug AbusePatient Records regulations: The Federal rules restrict any use of the information to criminally investigate or prosecute any alcohol or drug abuse patient.[facility] Encounter Details Date Type Department Care Team (Late st Contact Info) Description 05/18/2021 Get Medical Advice Cardiology [address] [place], [place] [phone] Andreas Pierre MD [address] [place] [address] RE: Upcoming Appointment Question Social History Tobacco [...] N ot on file 08/21/2020 Data from: https://www.neighborhoodatlas.medicine.[facility].edu/. Last address used for calculation Not [...] 10:00 AM EDT Office Visit Cardiology [address] [place] [address] Isaías Kinney MD [address] [place] [address] DX: Chronic diastolic heart failure 09/20/2025 8:15 AM EST Procedure Cardiology [address] [place] [address] Dx. Atherosclerotic heart disease of [place] coronary artery with other forms of angina pectoris 09/20/2025 9:00 AM EST Appointment Cardiology [address] [place] [address] Dx. Atherosclerotic heart disease of [place] coronary artery with other forms of angina pectoris 09/20/2025 9:45 AM EST Office Visit Cardiology [address] [place] [address] Nj Wei MD [address] [place] [address] Dx. Atherosclerotic heart disease of [place] coronary artery with other forms of angina pectoris documented as of this encounter Visit Diagnoses Not on filedocumented in this encounter Care Teams Credit Relationship Manager Relationship Specialty Start Date End Date Samm Serrano MD PCP - General Family Medicine 05/30/12 Carlos Tom Ulisses [address] [place] [address] Primary Staff Physician Cardiology 12/02/18 Andreas Pierre MD [address] [place] [address] Primary Staff Physician Cardiology 04/26/23 Virgil Carrillo MD [address] [place] [address] Primary Staff Physician Cardiology 10/29/23 Jethro Mendoza MD [address] [place] [address] Primary Staff Physician Cardiology 12/26/23 Isaías Kinney MD [address] [place] [address] Primary Staff Physician Cardiology 01/10/24 documented as of this encounter
--- OUTSIDE RECORDS SUMMARY | 2025-04-08 10:55 | XMS_ITS | Encounter Summary ---
Author Organization [facility] Address [address] [place] [address] Care Team Providers Care Licensed Practical Nurse Instructor Name Role Phone Samm Serrano MD Primary Care Provider +-4 Tom Gonzalez Unavailable [phone] Andreas Pierre MD Unavailable Virgil Carrillo MD Unavailable Jethro Mendoza MD Unavailable Isaías Kinney MD Unavailable [phone] Source Comments In the event this information is protected by the Federal Confidentiality of Alcohol and Drug AbusePatient Records regulations: The Federal rules restrict any use of the information to criminally investigate or prosecute any alcohol or drug abuse patient.[facility] Encounter Details Date Type Department Care Team (Late st Contact Info) Description 04/23/2024 Get Medical Advice Neurology [facility] [address] [place] [address] Jesusita Esparza, IRON PLASTIC BULLET MAKER.BATCH MIXER OPERATOR [address] [place] [address] [place] Test Results Social History Tobacco [...] in a assisted (including now)? No 03/02/2024 Area Deprivation Index Answer Date Rich rded National Score (1-100), lower number is lower ri sk 52 02/05/2024 State Score (1-10), lower number is lower risk 3 02/05/2024 Data from: https://www.neighborhoodatlas.medicine.[facility].edu/. Last address used for calculation [address] 02/05/2024 Sex and [...] 06/30/2025 10:00 AM EDT Office Visit Cardiology [address] [place] [address] Isaías Kinney MD [address] [place] [address] DX: Chronic diastolic heart failure 09/20/2025 8:15 AM EST Procedure Cardiology [address] [place] [address] Dx. Atherosclerotic heart disease of [place] coronary artery with other forms of angina pectoris 09/20/2025 9:00 AM EST Appointment Cardiology [address] [place], [place] [phone] Dx. Atherosclerotic heart disease of [place] coronary artery with other forms of angina pectoris 09/20/2025 9:45 AM EST Office Visit Cardiology [address] [place], [place] [phone] Nj Wei MD [address] [place] [phone] Dx. Atherosclerotic heart disease of [place] coronary artery with other forms of angina pectoris documented as of this encounter Goals Goal Patient Goal Type Associated Problems Recent Progress Patient-Stated? Author Blood Pressure < 130/80 Blood Pressure 134/63( 025 3:00 PM EDT) No Lidia Lo RN documented as of this encounter Visit Diagnoses Not on filedocumented in this encounter Care Teams Licensed Practical Nurse Instructor Relationship Specialty Start Date End Date Samm Serrano MD PCP - General Family Medicine 05/30/12 Tom Gonzalez [address] [place] [address] Primary Staff Physician Cardiology 12/02/18 Andreas Pierre MD [address] [place] [address] Primary Staff Physician Cardiology 04/26/23 Virgil Carrillo MD [address] [place], [place] [phone] Primary Staff Physician Cardiology 10/29/23 Jethro Mendoza MD [address] [place] [address] Primary Staff Physician Cardiology 12/26/23 Isaías Kinney MD [address] [place] [address] Primary Staff Physician Cardiology 01/10/24 documented as of this encounter
--- OUTSIDE RECORDS SUMMARY | 2025-04-08 10:55 | XMS_ITS | Encounter Summary ---
Author Organization [facility] Address [address] [place] [address] Care Team Providers Care Brace Maker Name Role Phone Samm Serrano MD Primary Care Provider +-4 Tom Gonzalez Unavailable [phone] Andreas Pierre MD Unavailable Virgil Carrillo MD Unavailable Jethro Mendoza MD Unavailable Isaías Kinney MD Unavailable [phone] Source Comments In the event this information is protected by the Federal Confidentiality of Alcohol and Drug AbusePatient Records regulations: The Federal rules restrict any use of the information to criminally investigate or prosecute any alcohol or drug abuse patient.[facility] Encounter Details Date Type Department Care Team (Late st Contact Info) Description 04/22/2024 Get Medical Advice Cardiology [address] [place], [place] [phone] Isaías Kinney MD [address] [place] [address] [place] Social History Tobacco Use Types Packs/Day Years Used Date Smoking Tobacco: Former Cigarettes 1 10 0 04/28/1972 - 04/28/1982 Pipe Passive Smoke Exposure: Never Smokeless Tobacco: Never Alcohol Use Standard Drinks/Week Comments Yes 0 (1 standard drink = 0.6 oz pur e alcohol) rarely [facility] Utilities Answer Date Recorded In the [...] a group home (including now)? No 03/02/2024 Area Deprivation Index Answer Date Rich rded National Score (1-100), lower number is lower ri sk 52 02/05/2024 State Score (1-10), lower number is lower risk 3 02/05/2024 Data from: https://www.neighborhoodatlas.medicine.[facility]/. Last address used for calculation [address] [place] [address] [address] 02/05/2024 Sex and Gender Information [...] 10:00 AM EDT Office Visit Cardiology [address] [place] [address] Isaías Kinney MD [address] [place] [phone] DX: Chronic diastolic heart failure 09/20/2025 8:15 AM EST Procedure Cardiology [address] [place] [address] Dx. Atherosclerotic heart disease of [place] coronary artery with other forms of angina pectoris 09/20/2025 9:00 AM EST Appointment Cardiology [address] [place], [place] [phone] Dx. Atherosclerotic heart disease of [place] coronary artery with other forms of angina pectoris 09/20/2025 9:45 AM EST Office Visit Cardiology [address] [place], [place] [phone] Nj Wei MD [address] [place] [address] Dx. Atherosclerotic heart disease of [place] coronary artery with other forms of angina pectoris documented as of this encounter Goals Goal Patient Goal Type Associated Problems Recent Progress Patient-Stated? Author Blood Pressure < 130/80 Blood Pressure 134/63( 025 3:00 PM EDT) Lidia Soto RN documented as of this encounter Visit Diagnoses Not on filedocumented in this encounter Care Teams Brace Maker Relationship Specialty Start Date End Date Samm Serrano MD PCP - General Family Medicine 05/30/12 Tom Gonzalez [address] [place] [address] Primary Staff Physician Cardiology 12/02/18 Andreas Pierre MD [address] [place] [phone] Primary Staff Physician Cardiology 04/26/23 Virgil Carrillo MD [address] [place] [phone] Primary Staff Physician Cardiology 10/29/23 Jethro Mendoza MD [address] [facility] [address] Primary Staff Physician Cardiology 12/26/23 Isaías Kinney MD [address] [place] [address] Primary Staff Physician Cardiology 01/10/24 documented as of this encounter
--- OUTSIDE RECORDS SUMMARY | 2025-04-08 10:55 | XMS_ITS | Encounter Summary ---
Author Organization [facility] Address [id number] [address] [place] [address] Care Team Providers Care Resident Care Spec Name Role Phone Samm Serrano MD Primary Care Provider [phone] Encounter Details Date Type Department Care Team (Late st Contact Info) Description 01/18/2025 Lab Requisition [facility] - Lab [address] [place] [id number] Samm Serrano MD [address] [place] [address] Hyperkalemia; 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 disease, or unspecified chronic kidney disease (CMS-HCC); Chronic systolic (congestive) heart failure (CMS-HCC); 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[facility]) Hypothyroidism, unspecified Gout, unspecified VITAMIN D 25 HYDROXY Routine 01/18/2025 12:19 PM EDT Hyperkalemia 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 disease, or unspecified chronic kidney disease (CMS-HCC) Chronic systolic (congestive) heart failure ([facility]-HCC) 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[facility]) Hypothyroidism, unspecified Gout, unspecified URIC ACID Routine 01/18/2025 12:19 PM EDT Hyperkalemia 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 disease, or unspecified chronic kidney disease (CMS-HCC) Chronic systolic (congestive) heart failure ([facility]-H[facility]) 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[facility]) Hypothyroidism, unspecified Gout, unspecified T3, FREE Routine 01/18/2025 12:19 PM EDT Hyperkalemia 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 disease, or unspecified chronic kidney disease (CMS-HCC) Chronic systolic (congestive) heart failure (CMS-HCC) 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[facility]) Hypothyroidism, unspecified Gout, unspecified B-TYPE NATRIURETIC PEPTIDE Routine 01/18/2025 12:19 PM EDT Hyperkalemia 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 disease, or unspecified chronic kidney disease (CMS-HCC) Chronic systolic (congestive) heart failure (CMS-HCC) 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[facility]) Hypothyroidism, unspecified Gout, unspecified MAGNESIUM Routine 01/18/2025 12:19 PM EDT Hyperkalemia 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 disease, or unspecified chronic kidney disease (CMS-HCC) Chronic systolic (congestive) heart failure (CMS-HCC) 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[facility]) Hypothyroidism, unspecified Gout, unspecified LIPID PROFILE Routine 01/18/2025 12:19 PM EDT Hyperkalemia 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 disease, or unspecified chronic kidney disease (CMS-HCC) Chronic systolic (congestive) heart failure (CMS-HCC) 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[facility]) Hypothyroidism, unspecified Gout, unspecified COMPREHENSIVE METABOLIC PANEL Routine 01/18/2025 12:19 PM EDT Hyperkalemia 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 disease, or unspecified chronic kidney disease (CMS-HCC) Chronic systolic (congestive) heart failure (CMS-HCC) 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[facility]) Hypothyroidism, unspecified Gout, unspecified documented in this encounter Results * (ABNORMAL) Lipid profile (01/18/2025 12:19 PM EDT) CHOLESTEROL 144(L) 150 - 200 mg/dL 01/19/2025 6:47 PM EDT [facility] TRIGLYCERIDE 51 27 - 150 mg/dL 01/19/2025 6:47 PM EDT [facility] HDL CHOLESTEROL 46 >39 mg/dL 6:47 PM EDT [facility] Comment: HDL <40 mg/dL - High Risk HDL > or = 40mg/dL- Desirable HDL >60 mg/dL - Negative Risk LDL (CALC) 88 <130 mg/dL 01/19/2025 6:47 PM EDT [facility] Comment: LDL <100 mg/dL - Desirable LDL >160 mg/dL - High Risk CHOLESTEROL:HDL 3.1 1.0 - 5.0 6:47 PM EDT [facility] VERY LOW LIPOPROTEIN 10 0 - 30 mg/dL 01/19/2025 6:47 PM EDT [facility] Blood Venous blood / Unknown Venipuncture / Unknown 01/18/2025 12:19 PM EDT 01/18/2025 1:34 PM EDT us Samm Serrano MD LAB BLOOD ORDERABLES Final Resu lt [facility] [address] [place] [address], [place] [phone] * Vitamin D 25 hydroxy (01/18/2025 12:19 PM EDT) VITAMIN D 25 HYD TOT 41.6 30.0 - 100.0 ng/mL 01/19/2025 7:06 PM EDT [facility] Blood Venous blood / Unknown Venipuncture / Unknown 01/18/2025 12:19 PM EDT 01/18/2025 1:34 PM EDT Narrative [facility] - 01/19/2025 7:06 PM EDT Vitamin D status 25 [place] Vitamin D Deficiency <20 ng/mL Insufficiency 20-29 ng/mL Sufficiency 30-100 ng/mL Toxicity >100 ng/mL NOTE: A pediatric reference range has not been established by the electroplater helper of this kit. The [place] [employer] recommends a Vitamin D level of = or >20ng/mL in infants and children. us Samm Serrano MD LAB BLOOD ORDERABLES Final Resu lt [facility] [address] [place] [address], [place] [phone] * (ABNORMAL) Comprehensive metabolic panel (01/18/2025 12:19 PM EDT) SODIUM 134 134 - 146 mmol/L 01/18/2025 2:52 PM EDT [facility] POTASSIUM 3.9 3.5 - 5.0 mmol/L 01/18/2025 2:52 PM EDT [facility] CHLORIDE 102 98 - 109 mmol/L 01/18/2025 2:52 PM EDT [facility] CARBON DIOXIDE 23 22 - 32 mmol/L 01/18/2025 2:52 PM EDT [facility] ANION GAP 9 5 - 15 mmol/L 01/18/2025 2:52 PM EDT [facility] BLOOD UREA NITROGEN 58(H) 5 - 27 mg/dL 01/18/2025 2:52 PM EDT [facility] CREATININE 2.03(H) 0.70 - 1.20 mg/dL 01/18/2025 2:52 PM EDT [facility] Comment:METHOD TRACEABLE TO IDMS STANDARD GLUCOSE 93 65 - 99 mg/dL 01/18/2025 2:52 PM EDT [facility] CALCIUM 8.9 8.5 - 10.5 mg/dL 01/18/2025 2:52 PM EDT [facility] TOTAL PROTEIN 7.3 6.0 - 8.0 g/dL 01/18/2025 2:52 PM EDT [facility] ALBUMIN 3.5 3.2 - 5.3 g/dL 01/18/2025 2:52 PM EDT [facility] ALKALINE PHOSPHATASE 118 39 - 130 U/L 01/18/2025 2:52 PM EDT [facility] AST 24 <=41 U/L 01/18/2025 2:52 PM EDT [facility] ALT 12 <=40 U/L 01/18/2025 2:52 PM EDT [facility] BILIRUBIN,TOTAL 1.2 0.3 - 1.2 mg/dL 01/18/2025 2:52 PM EDT [facility] EGFR Non-Race Dependent 32(L) >=60 ml/min/1.7 3sq.m 01/18/2025 2:52 PM EDT [facility] Comment: eGFR not reported due to non-numeric value for Creatinine. Reported eGFR is based on the CKD-EPI 2020 equation that does not use a race coefficient. Blood Venous blood / Unknown Venipuncture / Unknown 01/18/2025 12:19 PM EDT 01/18/2025 1:34 PM EDT us Samm Serrano MD LAB BLOOD ORDERABLES Final Resu lt [facility] [address] [facility] [place] [address], * (ABNORMAL) Uric acid (01/18/2025 12:19 PM EDT) URIC ACID 11.4(H) 2.6 - 7.2 mg/dL 01/18/2025 2:51 PM EDT [facility] Blood Venous blood / Unknown Venipuncture / Unknown 01/18/2025 12:19 PM EDT 01/18/2025 1:34 PM EDT us Samm Serrano MD LAB BLOOD ORDERABLES Final Resu lt [address] [place] [address], [place] * (ABNORMAL) Thyroid profile includes TSH FT4 (01/18/2025 12:19 PM EDT) FREE T4 1.29 0.61 - 1.60 ng/dL 01/18/2025 2:51 PM EDT [facility] TSH 8.64(H) 0.49 - 4.67 uIU/mL 01/18/2025 2:51 PM EDT [facility] Blood Venous blood / Unknown Venipuncture / Unknown 01/18/2025 12:19 PM EDT 01/18/2025 1:34 PM EDT us Samm Serrano MD LAB BLOOD ORDERABLES Final Resu lt Performing Organization Address [facility]/ZIP Co de Phone Number [address] [place] [address], [place] * (ABNORMAL) T3, free (01/18/2025 12:19 PM EDT) FREE T3 2.15(L) 2.50 - 3.90 pg/mL 01/19/2025 6:53 PM EDT [facility] Blood Venous blood / Unknown Venipuncture / Unknown 01/18/2025 12:19 PM EDT 01/18/2025 1:34 PM EDT us Samm Serrano MD LAB BLOOD ORDERABLES Final Resu lt [facility] [address] [place] [address], [place] [phone] * Magnesium (01/18/2025 12:19 PM EDT) MAGNESIUM 2.6 1.8 - 2.6 mg/dL 01/18/2025 2:51 PM EDT [facility] Blood Venous blood / Unknown Venipuncture / Unknown 01/18/2025 12:19 PM EDT 01/18/2025 1:34 PM EDT us Samm Serrano MD LAB BLOOD ORDERABLES Final Resu lt Performing Organization Address City/[facility]/ZIP Co de Phone Number [address] [place] [address], * (ABNORMAL) B-type natriuretic peptide (01/18/2025 12:19 PM EDT) BNP 2,720(H) <=100 pg/mL 01/18/2025 2:51 PM EDT [facility] Blood Venous blood / Unknown Venipuncture / Unknown 01/18/2025 12:19 PM EDT 01/18/2025 1:34 PM EDT us Samm Serrano MD LAB BLOOD ORDERABLES Final Resu lt Performing Organization Address City/[facility]/ZIP Co de Phone Number [address] [place] [address], documented in this encounter Visit Diagnoses Diagnosis [...] documented as of this encounter Care Teams Resident Care Spec Relationship Specialty Start Date End Date Samm Serrano MD PCP - General Family Medicine 02/26/24 documented as of this encounter
--- OUTSIDE RECORDS SUMMARY | 2025-04-08 10:55 | XMS_ITS | Encounter Summary ---
Author Organization [facility] Address [address] [place] [address] Care Team Providers Care Social Media Project Manager Name Role Phone Samm Serrano MD Primary Care Provider +-[phone] Tom Gonzalez Unavailable [phone] Andreas Pierre MD Unavailable Virgil Carrillo MD Unavailable Jethro Mendoza MD Unavailable Isaías Kinney MD Unavailable [phone] Source Comments In the event this information is protected by the Federal Confidentiality of Alcohol and Drug AbusePatient Records regulations: The Federal rules restrict any use of the information to criminally investigate or prosecute any alcohol or drug abuse patient.[facility] Reason for Visit * Reason Comments Follow Up Encounter Details Date Type Department Care Team (Late Contact Info) Description 08/17/2024 Telephone Cardiology [address] [place] [address] Isaías Kinney MD [address] [place] [address] Follow Up Social History Tobacco Use Types Packs/Day Years Used Date Smoking Tobacco: Former Cigarettes 1 10 0 04/28/1972 - 04/28/1982 Pipe Passive Smoke Exposure: Never Smokeless Tobacco: Never Alcohol Use Standard Drinks/Week Comments Yes 0 (1 standard drink = 0.6 oz pur e alcohol) rarely [facility] Utilities Answer Date Recorded In the past [...] any time in the past 12 m [facility], were you homeless or living in a fdc (including now)? Yes 07/22/2024 Area Deprivation Index Answer Date Rich rded National Score (1-100), lower number is lower ri sk 52 02/05/2024 State Score (1-10), lower number is lower risk 3 02/05/2024 Data from: https://www.neighborhoodatlas.medicine.[facility].edu/. Last address used for calculation [address] [place] [address] [address] 02/05/2024 Sex and Gender Information [...] rehab and have the order sent to [facility]. Shawanda Gomes RN August 17, 2024 2:46 PM * Telephone Encounter - Lindsay Ross - 08/17/2024 1:44 PM EST Patients daughter Charu called and wants you to know he is retaining water in his abs again. Has not gained weight and is doing the no eating again. Please call her at [phone]. Thank you, Lindsay documented in this encounter Plan of Treatment Upcoming Encounters Date Type Department Care Team (Latest Contact Info) Description 06/30/2025 10:00 AM EDT Office Visit Cardiology [address] [place] [address] Isaías Kinney MD [address] [place], [place] [phone] DX: Chronic diastolic heart failure 09/20/2025 8:15 AM EST Procedure Cardiology [address] [place] [address] Dx. Atherosclerotic heart disease of [place] coronary artery with other forms of angina pectoris 09/20/2025 9:00 AM EST Appointment Cardiology [address] [place] [address] Dx. Atherosclerotic heart disease of [place] coronary artery with other forms of angina pectoris 09/20/2025 9:45 AM EST Office Visit Cardiology [address] [place] [address] Nj Wei MD [address] [place] [address] Dx. Atherosclerotic heart disease of [place] coronary artery with other forms of angina pectoris documented as of this encounter Goals Goal Patient Goal Type Associated Problems Recent Progress Patient-Stated? Author Blood Pressure < 130/80 Blood Pressure 134/63( 025 3:00 PM EDT) Lidia Soto, ARIES documented as of this encounter Visit Diagnoses Not on filedocumented in this encounter Care Teams Social Media Project Manager Relationship Specialty Start Date End Date Samm Serrano MD PCP - General Family Medicine 05/30/12 Tom Gonzalez [address] [place] [address] Primary Staff Physician Cardiology 12/02/18 Andreas Pierre MD [address] [place] [address] Primary Staff Physician Cardiology 04/26/23 Virgil Carrillo MD [address] [place] [address] Primary Staff Physician Cardiology 10/29/23 Jethro Mendoza MD [address] [place] [address] Primary Staff Physician Cardiology 12/26/23 Isaías Kinney MD [address] [place] [address] Primary Staff Physician Cardiology 01/10/24 documented as of this encounter
--- OUTSIDE RECORDS SUMMARY | 2025-04-08 10:55 | XMS_ITS | Encounter Summary ---
Author Organization [facility] Address [address] [place] [address] Care Team Providers Care Planner Intern Name Role Phone Samm Serrano MD Primary Care Provider +-4 Tom Gonzalez Unavailable [phone] Andreas Pierre MD Unavailable Virgil Carrillo MD Unavailable Jethro Mendoza MD Unavailable Isaías Kinney MD Unavailable [phone] Source Comments In the event this information is protected by the Federal Confidentiality of Alcohol and Drug AbusePatient Records regulations: The Federal rules restrict any use of the information to criminally investigate or prosecute any alcohol or drug abuse patient.[facility] Encounter Details Date Type Department Care Team (Late st Contact Info) Description 08/14/2024 Patient Msg Cardiology [address] [place], [place] [id number] Isaías Kinney MD [address] [place] [address] Social History Tobacco Use Types Packs/Day Years Used Date Smoking Tobacco: Former Cigarettes 1 10 0 04/28/1972 - 04/28/1982 Pipe Passive Smoke Exposure: Never Smokeless Tobacco: Never Alcohol Use Standard Drinks/Week Comments Yes 0 (1 standard drink = 0.6 oz pur e alcohol) rarely [facility] Utilities Answer Date Recorded In the past 12 months has th e [employer], gas, oil, or water [employer] threatened to shut off services in your [...] any time in the past 12 m [facility], were you homeless or living in a [place] facility (including now)? Yes 07/22/2024 Area Deprivation Index Answer Date Rich rded National Score (1-100), lower number is lower ri sk 52 02/05/2024 State Score (1-10), lower number is lower risk 3 02/05/2024 Data from: https://www.neighborhoodatlas.medicine.[facility].edu/. Last address used for calculation [address] 02/05/2024 Sex and [...] 06/30/2025 10:00 AM EDT Office Visit Cardiology [address] [place] [address] Isaías Kinney MD [address] [place] [address] DX: Chronic diastolic heart failure 09/20/2025 8:15 AM EST Procedure Cardiology [address] [place] [address] Dx. Atherosclerotic heart disease of [place] coronary artery with other forms of angina pectoris 09/20/2025 9:00 AM EST Appointment Cardiology [address] [place] [address] Dx. Atherosclerotic heart disease of [place] coronary artery with other forms of angina pectoris 09/20/2025 9:45 AM EST Office Visit Cardiology [address] [place] [address] Nj Wei MD [address] [place] [address] Dx. Atherosclerotic heart disease of [place] coronary artery with other forms of angina pectoris documented as of this encounter Goals Goal Patient Goal Type Associated Problems Recent Progress Patient-Stated? Author Blood Pressure < 130/80 Blood Pressure 134/63( 025 3:00 PM EDT) No Lidia Lo RN documented as of this encounter Visit Diagnoses Not on filedocumented in this encounter Care Teams Planner Intern Relationship Specialty Start Date End Date Samm Serrano MD PCP - General Family Medicine 05/30/12 Tom Gonzalez [address] [place] [address] Primary Staff Physician Cardiology 12/02/18 Andreas Pierre MD [address] [place] [phone] Primary Staff Physician Cardiology 04/26/23 Virgil Carrillo MD [address] [place] [address] Primary Staff Physician Cardiology 10/29/23 Jethro Mendoza MD [address] [place] [address] Primary Staff Physician Cardiology 12/26/23 Isaías Kinney MD [address] [place] [address] Primary Staff Physician Cardiology 01/10/24 documented as of this encounter
--- OUTSIDE RECORDS SUMMARY | 2025-04-08 10:56 | XMS_ITS | Clinical Summary ---
Author Organization [employer] tem Address [id number] [address] [place] [address] Care Team Providers Care Gym Attendant Name Role Phone Samm Serrano MD Primary Care Provider [phone] Allergies Active Allergy Reactions Criticality Noted Date [...] Take 50 mg by mouth daily. Active vudsxva-yufh-aul tl-xrye-lulnzg 100 mg-150 mg- 50 mg-150 mg capsule [...] total) by mouth nightly. 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 Both and patient are where the most contact microwave supervisor prior to taking the medication. Viagra 1/2 [...] sexual function is: cannot sustain erection Comorbidities: cardiac---[place], Has AICD ==== 07/17/2019 ==== patient follow-up outside urologist as well as outside radiation oncologist. 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 PSA has fluctuate anywhere from 5 to approximately 13. Most recent PSA that I have of record is 12.3 in October 2014. Subsequent biopsy December 2018 2 course [place] 3 + 4 equal 7. Right side. [...] Referral to be made -per patient choice [facility]. Assessment & Plan (06/28/2021 1:59 [...] Encounters Date Type Department Care Team Description 04/06/2025 Lab Requisition [facility] - [facility] [address] [place] [address] Samm Serrano MD Hyperkalemia; Non-ST elevation (NSTEMI) myocardial infarction ([facility]); Heart failure, unspecified ([facility]) 03/29/2025 Lab Requisition [facility] - Lab [address] [place] [address] Samm Serrano MD Hyperkalemia; Non-ST elevation (NSTEMI) myocardial infarction ([facility]); Heart failure, unspecified ([facility]) 03/24/2025 Lab Requisition [facility] - Lab [address] [facility] [place] [address] Samm Serrano MD Chronic systolic (congestive) heart failure ([facility]); Chronic kidney disease, stage 3 unspecified ([facility]) 02/22/2025 Lab Requisition [facility] - Lab [address] [facility] [place] [address] Samm Serrano MD 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 disease, or unspecified chronic kidney disease ([facility]); Chronic systolic (congestive) heart failure ([facility]) 02/09/2025 Lab Requisition [facility] - Lab [address] [place] [address] Samm Serrano MD Acute kidney failure, unspecified; 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 disease, or unspecified chronic kidney disease ([facility]); Chronic systolic (congestive) heart failure ([facility]) 02/01/2025 Lab Requisition [facility] - Lab [address] [place] [address] Samm Serrano MD 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 disease, or unspecified chronic kidney disease ([facility]); Chronic systolic (congestive) heart failure ([facility]) 01/25/2025 Lab Requisition [facility] - Lab [address] [place] [phone] Samm Serrano MD 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 disease, or unspecified chronic kidney disease ([facility]); Chronic systolic (congestive) heart failure ([facility]) 01/18/2025 Lab Requisition [facility] - Lab [address] [place] [phone] Samm Serrano MD Hyperkalemia; 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 disease, or unspecified chronic kidney disease ([facility]); Chronic systolic (congestive) heart failure ([facility] 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[facility]); Hypothyroidism, unspecified; Gout, unspecified 01/11/2025 Lab Requisition [facility] - Lab [address] [place] [phone] Samm Serrano MD Hypokalemia; Chronic kidney disease, [...] How often do you attend [facility] or jain services? Never 08/17/2021 Do you belong to [...] Answer Date Recorded Total Score 0 08/17/2021 [facility] - [...] Procedure Name Priority Date/Time Associated Diagnosis Comments TSH Routine 04/06/2025 3:00 PM EDT Hyperkalemia Non-ST elevation (NSTEMI) myocardial infarction (CMS-HCC) Heart failure, unspecified (CMS-HCC) T4, FREE Routine 04/06/2025 3:00 PM EDT Hyperkalemia Non-ST elevation (NSTEMI) myocardial infarction (CMS-HCC) Heart failure, unspecified (CMS-HCC) T3, FREE Routine 04/06/2025 3:00 PM EDT Hyperkalemia Non-ST elevation (NSTEMI) myocardial infarction (CMS-HCC) Heart failure, unspecified (CMS-HCC) MAGNESIUM Routine 04/06/2025 3:00 PM EDT Hyperkalemia Non-ST elevation (NSTEMI) myocardial infarction (CMS-HCC) Heart failure, unspecified (CMS-HCC) IRON AND TIBC Routine 04/06/2025 3:00 PM EDT Hyperkalemia Non-ST elevation (NSTEMI) myocardial infarction (CMS-HCC) Heart failure, unspecified (CMS-HCC) CBC WITH AUTO DIFFERENTIAL Routine 04/06/2025 3:00 PM EDT Hyperkalemia Non-ST elevation (NSTEMI) myocardial infarction (CMS-HCC) Heart failure, unspecified (CMS-HCC) B-TYPE NATRIURETIC PEPTIDE Routine 04/06/2025 3:00 PM EDT Hyperkalemia Non-ST elevation (NSTEMI) myocardial infarction (CMS-HCC) Heart failure, unspecified (CMS-HCC) BASIC METABOLIC PANEL Routine 04/06/2025 3:00 PM EDT Hyperkalemia Non-ST elevation (NSTEMI) myocardial infarction (CMS-HCC) Heart failure, unspecified (CMS-HCC) THYROID PROFILE INCLUDES TSH FT4 Routine 03/29/2025 3:57 PM EDT Hyperkalemia Non-ST elevation (NSTEMI) myocardial infarction (CMS-HCC) Heart failure, unspecified (CMS-HCC) T3, FREE Routine 03/29/2025 3:57 PM EDT Hyperkalemia Non-ST elevation (NSTEMI) myocardial infarction (CMS-HCC) Heart failure, unspecified (CMS-HCC) MAGNESIUM Routine 03/29/2025 3:57 PM EDT Hyperkalemia Non-ST elevation (NSTEMI) myocardial infarction (CMS-HCC) Heart failure, unspecified (CMS-HCC) IRON AND TIBC Routine 03/29/2025 3:57 PM EDT Hyperkalemia Non-ST elevation (NSTEMI) myocardial infarction (CMS-HCC) Heart failure, unspecified (CMS-HCC) B-TYPE NATRIURETIC PEPTIDE Routine 03/29/2025 3:57 PM EDT Hyperkalemia Non-ST elevation (NSTEMI) myocardial infarction (CMS-HCC) Heart failure, unspecified (CMS-HCC) CBC WITH AUTO DIFFERENTIAL Routine 03/29/2025 3:57 PM EDT Hyperkalemia Non-ST elevation (NSTEMI) myocardial infarction (CMS-HCC) Heart failure, unspecified (CMS-HCC) BASIC METABOLIC PANEL Routine 03/29/2025 3:57 PM EDT Hyperkalemia Non-ST elevation (NSTEMI) myocardial infarction (CMS-HCC) Heart failure, unspecified (CMS-HCC) PROSTATIC SPECIFIC ANTIGEN SCREEN Routine 03/24/2025 11:38 AM EDT Chronic systolic (congestive) heart failure (CMS-HCC) Chronic kidney disease, stage 3 unspecified (CMS-HCC) CBC WITH AUTO DIFFERENTIAL Routine 03/24/2025 11:38 AM EDT Chronic systolic (congestive) heart failure (CMS-HCC) Chronic kidney disease, stage 3 unspecified (CMS-HCC) AST Routine 03/24/2025 11:38 AM EDT Chronic systolic (congestive) heart failure (CMS-HCC) Chronic kidney disease, stage 3 unspecified (CMS-HCC) ALT Routine 03/24/2025 11:38 AM EDT Chronic systolic (congestive) heart failure (CMS-HCC) Chronic kidney disease, stage 3 unspecified (CMS-HCC) LIVER PANEL Routine 03/24/2025 11:38 AM EDT Chronic systolic (congestive) heart failure (CMS-HCC) Chronic kidney disease, stage 3 unspecified (CMS-HCC) LIPID PROFILE Routine 03/24/2025 11:38 AM EDT Chronic systolic (congestive) heart failure (CMS-HCC) Chronic kidney disease, stage 3 unspecified (CMS-HCC) BASIC METABOLIC PANEL Routine 03/24/2025 11:38 AM EDT Chronic systolic (congestive) heart failure (CMS-HCC) Chronic kidney disease, stage 3 unspecified (CMS-HCC) CBC WITH AUTO DIFFERENTIAL Routine 02/22/2025 1:50 [...] kidney disease (CMS-HCC) Hypothyroidism, unspecified Gout, unspecified MAGNESIUM Routine 01/18/2025 [...] kidney disease (CMS-HCC) Hypothyroidism, unspecified Gout, unspecified CBC WITH AUTO DIFFERENTIAL Routine 01/11/2025 1:10 PM EDT Hypokalemia Chronic kidney disease, unspecified COMPREHENSIVE METABOLIC PANEL Routine 01/11/2025 1:10 PM EDT Hypokalemia Chronic kidney disease, unspecified from Last 3 Months Results * (ABNORMAL) CBC auto differential (04/06/2025 3:00 PM EDT) Only the most recent of8 resultswithin the time period is included. WBC 5.7 4 - 11 x10E9/L 04/06/2025 3:[address] [facility] RBC Count 3.78(L) 4.1 - 5.7 X10E12/L 04/06/2025 3:[address] [facility] Hemoglobin 11.5(L) 13 - 17 g/dL 04/06/2025 3:[address] [facility] Hematocrit 34.6(L) 39 - 50 % 04/06/2025 3:[address] [facility] MCV 92 80 - 100 fL 04/06/2025 3:[address] [facility] MCH 30.4 27 - 34 pg 04/06/2025 3:[address] [facility] MCHC 33.2 32 - 36 g/dL 04/06/2025 3:[address] [facility] RDW 17.3(H) 11.5 - 15 % 04/06/2025 3:[address] [facility] Platelet Count 143(L) 150 - 450 X10E9/L 04/06/2025 3:[address] [facility] MPV 8.3 7 - 12 fL 04/06/2025 3:[address] [facility] Neutrophils % 70.8 % 04/06/2025 3:[address] [facility] Lymphocytes % 12.9 % 04/06/2025 3:[address] [facility] Monocytes % 11.5 % 04/06/2025 3:[address] [facility] Eosinophils % 4.2 % 04/06/2025 3:[address] [facility] Basophils % 0.6 % 04/06/2025 3:[address] [facility] Neutrophils Absolute (A) 4.0 1.5 - 6.6 10*3/uL 04/06/2025 3:[address] [facility] Lymphocytes Absolute 0.7(L) 1.0 - 3.5 10*3/uL 04/06/2025 3:[address] [facility] Monocytes Absolute 0.7 0.0 - 0.9 10*3/uL 04/06/2025 3:[address] [facility] Eosinophils Absolute 0.2 0.0 - 0.4 10*3/uL 04/06/2025 3:[address] [facility] Basophils Absolute 0.0 0.0 - 0.2 10*3/uL 04/06/2025 3:[address] [facility] Differential Type AUTOMATED DIFFERENTIAL 04/06/2025 3:[address] [facility] Blood Venous blood / Unknown 04/06/2025 3:00 PM EDT 04/06/2025 3:31 PM EDT us Samm Serrano MD LAB BLOOD ORDERABLES Final Resu lt [facility] [address] [place] [address], [place] * Iron and TIBC (04/06/2025 3:00 PM EDT) Only the most recent of2 resultswithin the time period is included. IRON 60 50 - 212 ug/dL 04/07/2025 2:51 AM EDT [facility] TRANSFERRIN 202 168 - 336 mg/dL 04/07/2025 2:51 AM EDT [facility] IRON BINDING 283 250 - 425 ug/dL 04/07/2025 2:51 AM EDT [facility] IRON SATURATION 21 20 - 50 % SATURATION 04/07/2025 2:51 AM EDT [facility] Blood Venous blood / Unknown 04/06/2025 3:00 PM EDT 04/06/2025 3:31 PM EDT us Samm Serrano MD LAB BLOOD ORDERABLES Final Resu lt [facility] [address] [place] [address], [place] [phone] * T3, free (04/06/2025 3:00 PM EDT) Only the most recent of3 resultswithin the time period is included. FREE T3 2.89 2.50 - 3.90 pg/mL 04/07/2025 2:57 AM EDT [facility] Blood Venous blood / Unknown 04/06/2025 3:00 PM EDT 04/06/2025 3:31 PM EDT us Samm Serrano MD LAB BLOOD ORDERABLES Final Resu lt [facility] [address] [place] [address], [place] [phone] * TSH (04/06/2025 3:00 PM EDT) TSH 1.10 0.49 - 4.67 uIU/mL 04/06/2025 4:[address] [facility] Blood Venous blood / Unknown 04/06/2025 3:00 PM EDT 04/06/2025 3:31 PM EDT us Samm Serrano MD LAB BLOOD ORDERABLES Final Resu lt Performing Organization Address City/[facility] Co de Phone Number [address] [place] [address], [place] * T4, free (04/06/2025 3:00 PM EDT) FREE T4 1.19 0.61 - 1.60 ng/dL 04/06/2025 4:[address] [facility] Blood Venous blood / Unknown 04/06/2025 3:00 PM EDT 04/06/2025 3:31 PM EDT us Samm Serrano MD LAB BLOOD ORDERABLES Final Resu lt Performing Organization Address [facility] Co de Phone Number [address] [place] [address], [place] * (ABNORMAL) B-type natriuretic peptide (04/06/2025 3:00 PM EDT) Only the most recent of3 resultswithin the time period is included. BNP 3,367(H) <=100 pg/mL 04/06/2025 4:[address] [facility] Blood Venous blood / Unknown 04/06/2025 3:00 PM EDT 04/06/2025 3:31 PM EDT Samm Serrano MD LAB BLOOD ORDERABLES Final Resu lt Performing Organization Address City/[facility] Co de Phone Number [address] [place] [address], [place] * Magnesium (04/06/2025 3:00 PM EDT) Only the most recent of3 resultswithin the time period is included. MAGNESIUM 2.6 1.8 - 2.6 mg/dL 04/06/2025 4:[address] [facility] Blood Venous blood / Unknown 04/06/2025 3:00 PM EDT 04/06/2025 3:31 PM EDT us Samm Serrano MD LAB BLOOD ORDERABLES Final Resu lt [facility] [address] [place] [address], [place] * (ABNORMAL) Basic Metabolic Panel (04/06/2025 3:00 PM EDT) Only the most recent of4 resultswithin the time period is included. SODIUM 134 134 - 146 mmol/L 04/06/2025 4:[address] [facility] POTASSIUM 4.9 3.5 - 5.0 mmol/L 04/06/2025 4:[address] [facility] CHLORIDE 102 98 - 109 mmol/L 04/06/2025 4:[address] [facility] CARBON DIOXIDE 25 22 - 32 mmol/L 04/06/2025 4:[address] [facility] ANION GAP 7 5 - 15 mmol/L 04/06/2025 4:[address] [facility] BLOOD UREA NITROGEN 47(H) 5 - 27 mg/dL 04/06/2025 4:[address] [facility] CREATININE 2.04(H) 0.70 - 1.20 mg/dL 04/06/2025 4:[address] [facility] Comment:METHOD TRACEABLE TO IDMS STANDARD GLUCOSE 129(H) 65 - 99 mg/dL 04/06/2025 4:[address] [facility] CALCIUM 8.9 8.5 - 10.5 mg/dL 04/06/2025 4:[address] [facility] EGFR Non-Race Dependent 32(L) >=60 ml/min/1.7 3sq.m 04/06/2025 4:[address] [facility] Comment: eGFR not reported due to non-numeric value for Creatinine. Reported eGFR is based on the CKD-EPI 2020 equation that does not use a race coefficient. Blood Venous blood / Unknown 04/06/2025 3:00 PM EDT 04/06/2025 3:31 PM EDT us Samm Serrano MD LAB BLOOD ORDERABLES Final Resu lt [facility] [address] [place] [address] [place] [address], [place] * Thyroid profile includes TSH FT4 (03/29/2025 3:57 PM EDT) Only the most recent of2 resultswithin the time period is included. FREE T4 1.12 0.61 - 1.60 ng/dL 03/29/2025 5:[address] [facility] TSH 0.75 0.49 - 4.67 uIU/mL 03/29/2025 5:[address] [facility] Blood Venous blood / Unknown 03/29/2025 3:57 PM EDT 03/29/2025 4:40 PM EDT us Samm Serrano MD LAB BLOOD ORDERABLES Final Resu lt Performing Organization Address City/[facility]/ZIP Co de Phone Number [address] [place] [address], [place] * Prostatic specific antigen screen (03/24/2025 11:38 AM EDT) PROSTATIC SPEC ANT <0.01 0.00 - 4.00 ng/mL 03/24/2025 7:33 PM EDT [facility] Comment: The method used for this test is [email or web address] DXI chemiluminescent immunoassay. Values obtained by different assay methods cannot be used interchangeably. Blood Venous blood / Unknown 03/24/2025 11:38 AM EDT 03/24/2025 12:16 PM EDT us Samm Serrano MD LAB BLOOD ORDERABLES Final Resu lt [facility] [address] [place] [address], [place] [phone] * ALT (03/24/2025 11:38 AM EDT) ALT 39 <=40 U/L 03/24/2025 12:[address] [facility] Blood Venous blood / Unknown 03/24/2025 11:38 AM EDT 03/24/2025 12:16 PM EDT us Samm Serrano MD LAB BLOOD ORDERABLES Final Resu lt Performing Organization Address City/[facility]/ZIP Co de Phone Number [address] [place] [address], [place] * (ABNORMAL) AST (03/24/2025 11:38 AM EDT) AST 49(H) <=41 U/L 03/24/2025 12:[address] [facility] Blood Venous blood / Unknown 03/24/2025 11:38 AM EDT 03/24/2025 12:16 PM EDT us Samm Serrano MD LAB BLOOD ORDERABLES Final Resu lt Performing Organization Address City/[facility]/ZIP Co de Phone Number [address] [place] [address], [place] * (ABNORMAL) Liver panel (03/24/2025 11:38 AM EDT) TOTAL PROTEIN 6.4 6.0 - 8.0 g/dL 03/24/2025 12:[address] [facility] ALBUMIN 3.2 3.2 - 5.3 g/dL 03/24/2025 12:[address] [facility] BILIRUBIN,TOTAL 0.8 0.3 - 1.2 mg/dL 03/24/2025 12:[address] [facility] ALKALINE PHOSPHATASE 138(H) 39 - 130 U/L 03/24/2025 12:[address] [facility] AST 49(H) <=41 U/L 03/24/2025 12:[address] [facility] ALT 39 <=40 U/L 03/24/2025 12:[address] [facility] BILIRUBIN,DIRECT 0.4 <=0.4 mg/dL 03/24/2025 12:[address] [facility] Blood Venous blood / Unknown 03/24/2025 11:38 AM EDT 03/24/2025 12:16 PM EDT us Samm Serrano MD LAB BLOOD ORDERABLES Final Resu lt [facility] [address] [place] [address], [place] * Lipid profile (03/24/2025 11:38 AM EDT) Only the most recent of2 resultswithin the time period is included. CHOLESTEROL 154 150 - 200 mg/dL 03/24/2025 7:28 PM EDT [facility] TRIGLYCERIDE 55 27 - 150 mg/dL 03/24/2025 7:28 PM EDT [facility] HDL CHOLESTEROL 49 >39 mg/dL 7:28 PM EDT [facility] Comment: HDL <40 mg/dL - High Risk HDL > or = 40mg/dL- Desirable HDL >60 mg/dL - Negative Risk LDL (CALC) 94 <130 mg/dL 03/24/2025 7:28 PM EDT [facility] Comment: LDL <100 mg/dL - Desirable LDL >160 mg/dL - High Risk CHOLESTEROL:HDL 3.1 1.0 - 5.0 7:28 PM EDT [facility] VERY LOW LIPOPROTEIN 11 0 - 30 mg/dL 03/24/2025 7:28 PM EDT [facility] Blood Venous blood / Unknown 03/24/2025 11:38 AM EDT 03/24/2025 12:16 PM EDT us Samm Serrano MD LAB BLOOD ORDERABLES Final Resu lt [facility] [address] [place] [address], [place] [phone] * (ABNORMAL) Comprehensive metabolic panel (02/09/2025 3:27 PM EDT) Only the most recent of5 resultswithin the time period is included. SODIUM 133(L) 134 - 146 mmol/L 02/09/2025 4:[address] [facility] POTASSIUM 3.8 3.5 - 5.0 mmol/L 02/09/2025 4:[address] [facility] CHLORIDE 102 98 - 109 mmol/L 02/09/2025 4:[address] [facility] CARBON DIOXIDE 27 22 - 32 mmol/L 02/09/2025 4:[address] [facility] ANION GAP 4(L) 5 - 15 mmol/L 02/09/2025 4:[address] [facility] BLOOD UREA NITROGEN 49(H) 5 - 27 mg/dL 02/09/2025 4:[address] [facility] CREATININE 2.18(H) 0.70 - 1.20 mg/dL 02/09/2025 4:[address] [facility] Comment:METHOD TRACEABLE TO IDMS STANDARD GLUCOSE 88 65 - 99 mg/dL 02/09/2025 4:[address] [facility] CALCIUM 8.6 8.5 - 10.5 mg/dL 02/09/2025 4:[address] [facility] TOTAL PROTEIN 6.8 6.0 - 8.0 g/dL 02/09/2025 4:[address] [facility] ALBUMIN 3.3 3.2 - 5.3 g/dL 02/09/2025 4:[address] [facility] ALKALINE PHOSPHATASE 117 39 - 130 U/L 02/09/2025 4:[address] [facility] AST 20 <=41 U/L 02/09/2025 4:[address] [facility] ALT 11 <=40 U/L 02/09/2025 4:[address] [facility] BILIRUBIN,TOTAL 1.1 0.3 - 1.2 mg/dL 02/09/2025 4:[address] [facility] EGFR Non-Race Dependent 29(L) >=60 ml/min/1.7 3sq.m 02/09/2025 4:[address] [facility] Comment: eGFR not reported due to non-numeric value for Creatinine. Reported eGFR is based on the CKD-EPI 2020 equation that does not use a race coefficient. Blood Venous blood / Unknown 02/09/2025 3:27 PM EDT 02/09/2025 4:19 PM EDT us Samm Serrano MD LAB BLOOD ORDERABLES Final Resu lt [facility] [address] [place] [address], * Vitamin D 25 hydroxy (01/18/2025 12:19 PM EDT) VITAMIN D 25 HYD TOT 41.6 30.0 - 100.0 ng/mL 01/19/2025 7:06 PM EDT [facility] Blood Venous blood / Unknown Venipuncture / Unknown 01/18/2025 12:19 PM EDT 01/18/2025 1:34 PM EDT Narrative [facility] - 01/19/2025 7:06 PM EDT Vitamin D status 25 [place] Vitamin D Deficiency <20 ng/mL Insufficiency 20-29 ng/mL Sufficiency 30-100 ng/mL Toxicity >100 ng/mL NOTE: A pediatric reference range has not been established by the layboy tender of this kit. The [place] [employer] recommends a Vitamin D level of = or >20ng/mL in infants and children. Samm Serrano MD LAB BLOOD ORDERABLES Final Resu lt [facility] [address] [place] [address], * (ABNORMAL) Uric acid (01/18/2025 12:19 PM EDT) URIC ACID 11.4(H) 2.6 - 7.2 mg/dL 01/18/2025 2:[address] [facility] Blood Venous blood / Unknown Venipuncture / Unknown 01/18/2025 12:19 PM EDT 01/18/2025 1:34 PM EDT Samm Serrano MD LAB BLOOD ORDERABLES Final Resu lt [facility] [address] [place] [address], from Last 3 Months Insurance [employer] Member Subscriber Plan / Payer (Ef fective 2018-Present) Name:José Miguel Antonio Relation to Subscriber:Self Name:José Miguel Antonio Payer ID:Not on file Type:Not on file Address: [place] [phone] Advance Directives * Full Code (Latest Code Status on File) Date Activated Date Inactivated Comments 08/18/2021 11:48 AM 08/19/2021 7:30 PM Care Teams Gym Attendant Relationship Specialty Start Date End Date Samm Serrano MD PCP - General Family Medicine 02/26/24
--- OUTSIDE RECORDS SUMMARY | 2025-04-08 10:56 | XMS_ITS | Encounter Summary ---
Author Organization [email or web address] Sys tem Address [id number] [address] [place] [address] Care Team Providers Care Track Mechanic Name Role Phone Samm Serrano MD Primary Care Provider +-5 Reason for Visit * Reason Onset Date Comments Med Refill 01/31/2022 Encounter Details Date Type Department Care Team (Late st Contact Info) Description 01/31/2022 Refill [facility] [address] [place] [address] Albertina Infante RMA Cerebrovascular accident [...] often do you attend chur ch or sabianism services? Never 08/17/2021 Do you belong to any clubs o r organizations such as voodoo groups, unions, fraternal or athletic groups, or [...] Answer Date Recorded Total Score 0 08/17/2021 [facility] of Occupat ional Health - Occupational Stress [...] Received refill [facility]. 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
--- OUTSIDE RECORDS SUMMARY | 2025-04-08 10:56 | XMS_ITS | Encounter Summary ---
Author Organization [facility] [employer] s tem Address [facility] [id number] [address] [place] [address] Care Team Providers Care Sharepoint Engineer Name Role Phone Samm Serrano MD Primary Care Provider [phone] Encounter Details Date Type Department Care Team (Late st Contact Info) Description 02/01/2025 Lab Requisition [facility] - Lab [address] [place] [phone] Samm Serrano MD [address] [place] [address] 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 disease, or unspecified chronic kidney disease (CMS-HCC); Chronic systolic (congestive) heart failure ([facility]) Social History Tobacco Use Types Packs/Day Years [...] week 08/17/2021 How often do you attend [facility] or methodist services? Never 08/17/2021 Do you belong to any clubs o r organizations such as quaker groups, unions, fraternal or athletic groups, or [...] Answer Date Recorded Total Score 0 08/17/2021 [facility] - [...] Recorded Do you need help finding a [facility] and/or a training program? [...] - 11 x10E9/L 02/01/2025 2:21 PM EDT [facility] RBC Count 3.84(L) 4.1 - 5.7 X10E12/L 02/01/2025 2:21 PM EDT [facility] Hemoglobin 12.1(L) 13 - 17 g/dL 02/01/2025 2:21 PM EDT [facility] Hematocrit 35.9(L) 39 - 50 % 02/01/2025 2:21 PM EDT [facility] MCV 94 80 - 100 fL 02/01/2025 2:21 PM EDT [facility] MCH 31.4 27 - 34 pg 02/01/2025 2:21 PM EDT [facility] MCHC 33.6 32 - 36 g/dL 02/01/2025 2:21 PM EDT [facility] RDW 17.6(H) 11.5 - 15 % 02/01/2025 2:21 PM EDT [facility] Platelet Count 156 150 - 450 X10E9/L 02/01/2025 2:21 PM EDT [facility] MPV 8.3 7 - 12 fL 02/01/2025 2:21 PM EDT [facility] Neutrophils % 70.6 % 02/01/2025 2:21 PM EDT [facility] Lymphocytes % 12.2 % 02/01/2025 2:21 PM EDT [facility] Monocytes % 12.5 % 02/01/2025 2:21 PM EDT [facility] Eosinophils % 3.5 % 02/01/2025 2:21 PM EDT [facility] Basophils % 1.2 % 02/01/2025 2:21 PM EDT [facility] Neutrophils Absolute (A) 3.3 1.5 - 6.6 10*3/uL 02/01/2025 2:21 PM EDT [facility] Lymphocytes Absolute 0.6(L) 1.0 - 3.5 10*3/uL 02/01/2025 2:21 PM EDT [facility] Monocytes Absolute 0.6 0.0 - 0.9 10*3/uL 02/01/2025 2:21 PM EDT [facility] Eosinophils Absolute 0.2 0.0 - 0.4 10*3/uL 02/01/2025 2:21 PM EDT [facility] Basophils Absolute 0.1 0.0 - 0.2 10*3/uL 02/01/2025 2:21 PM EDT [facility] Differential Type AUTOMATED DIFFERENTIAL 02/01/2025 2:21 PM EDT [facility] Blood Venous blood / Unknown 02/01/2025 1:38 PM EDT 02/01/2025 2:16 PM EDT us Samm Serrano MD LAB BLOOD ORDERABLES Final Resu lt [facility] [address] [place] [address], * (ABNORMAL) Comprehensive metabolic panel (02/01/2025 1:38 PM EDT) SODIUM 134 134 - 146 mmol/L 02/01/2025 2:28 PM EDT [facility] POTASSIUM 4.1 3.5 - 5.0 mmol/L 02/01/2025 2:28 PM EDT [facility] CHLORIDE 103 98 - 109 mmol/L 02/01/2025 2:28 PM EDT [facility] CARBON DIOXIDE 21(L) 22 - 32 mmol/L 02/01/2025 2:28 PM EDT [facility] ANION GAP 10 5 - 15 mmol/L 02/01/2025 2:28 PM EDT [facility] BLOOD UREA NITROGEN 50(H) 5 - 27 mg/dL 02/01/2025 2:28 PM EDT [facility] CREATININE 2.47(H) 0.70 - 1.20 mg/dL 02/01/2025 2:28 PM EDT [facility] Comment:METHOD TRACEABLE TO IDMS STANDARD GLUCOSE 100(H) 65 - 99 mg/dL 02/01/2025 2:28 PM EDT [facility] CALCIUM 8.1(L) 8.5 - 10.5 mg/dL 02/01/2025 2:28 PM EDT [facility] TOTAL PROTEIN 7.0 6.0 - 8.0 g/dL 02/01/2025 2:28 PM EDT [facility] ALBUMIN 3.3 3.2 - 5.3 g/dL 02/01/2025 2:28 PM EDT [facility] ALKALINE PHOSPHATASE 103 39 - 130 U/L 02/01/2025 2:28 PM EDT [facility] AST 19 <=41 U/L 02/01/2025 2:28 PM EDT [facility] ALT 11 <=40 U/L 02/01/2025 2:28 PM EDT [facility] BILIRUBIN,TOTAL 1.3(H) 0.3 - 1.2 mg/dL 02/01/2025 2:28 PM EDT [facility] EGFR Non-Race Dependent 25(L) >=60 ml/min/1.7 3sq.m 02/01/2025 2:28 PM EDT [facility] Comment: eGFR not reported due to non-numeric value for Creatinine. Reported eGFR is based on the CKD-EPI 2020 equation that does not use a race coefficient. Blood Venous blood / Unknown 02/01/2025 1:38 PM EDT 02/01/2025 2:16 PM EDT us Samm Serrano MD LAB BLOOD ORDERABLES Final Resu lt [facility] [address] [place] [address] documented in this encounter Visit Diagnoses Diagnosis [...] documented as of this encounter Care Teams Sharepoint Engineer Relationship Specialty Start Date End Date Samm Serrano MD PCP - General Family Medicine 02/26/24 documented as of this encounter
--- OUTSIDE RECORDS SUMMARY | 2025-04-08 10:56 | XMS_ITS | Encounter Summary ---
Author Organization [facility] Address [address] [place] [id number] Care Team Providers Care Motion Picture Director Name Role Phone Samm Serrano MD Primary Care Provider [phone] Tom Gonzalez Unavailable [phone] Andreas Pierre MD Unavailable Virgil Carrillo MD Unavailable Jethro Mendoza MD Unavailable Isaías Kinney MD Unavailable [phone] Source Comments In the event this information is protected by the Federal Confidentiality of Alcohol and Drug AbusePatient Records regulations: The Federal rules restrict any use of the information to criminally investigate or prosecute any alcohol or drug abuse patient.[facility] Encounter Details Date Type Department Care Team (Late st Contact Info) Description 09/28/2024 Patient Msg Radiation Oncology [address] [place] [address] [place] [address] Yung Andrade MD [address] [address] Appointment Cancellation Request Social History Tobacco Use Types Packs/Day Years Used Date Smoking Tobacco: Former Cigarettes 1 10 0 04/28/1972 - 04/28/1982 Pipe Passive Smoke Exposure: Never Smokeless Tobacco: Never Alcohol Use Standard Drinks/Week Comments Not Currently 0 (1 standard drink = 0.6 oz pur e alcohol) rarely [facility] Utilities Answer Date Recorded In [...] [email or web address] Last address used for calculation [address] [place] [address] [address] 02/05/2024 Sex and Gender Information [...] Author No 09/25/2024 12:55 PM Allyn Garcia, RN documented in this encounter Plan of Treatment Upcoming Encounters Date Type Department Care Team (Latest Contact Info) Description 06/30/2025 10:00 AM EDT Office Visit Cardiology [address] [place] [address] Isaías Kinney MD [address] [place] [address] DX: Chronic diastolic heart failure 09/20/2025 8:15 AM EST Procedure Cardiology [address] [place] [address] Dx. Atherosclerotic heart disease of [place] coronary artery with other forms of angina pectoris 09/20/2025 9:00 AM EST Appointment Cardiology [address] [place] [address] Dx. Atherosclerotic heart disease of [place] coronary artery with other forms of angina pectoris 09/20/2025 9:45 AM EST Office Visit Cardiology [address] [place] [address] Nj Wei MD [address] [place] [address] Dx. Atherosclerotic heart disease of [place] coronary artery with other forms of angina pectoris documented as of this encounter Goals Goal Patient Goal Type Associated Problems Recent Progress Patient-Stated? Author Blood Pressure < 130/80 Blood Pressure 134/63( 025 3:00 PM EDT) No Lidia Lo RN documented as of this encounter Visit Diagnoses Not on filedocumented in this encounter Care Teams Motion Picture Director Relationship Specialty Start Date End Date Samm Serrano MD PCP - General Family Medicine 05/30/12 Tom Gonzalez [address] [place] [address] Primary Staff Physician Cardiology 12/02/18 Andreas Pierre MD [address] [place], [place] [phone] Primary Staff Physician Cardiology 04/26/23 Virgil Carrillo MD [address] [place] [phone] Primary Staff Physician Cardiology 10/29/23 Jethro Mendoza MD [address] [place] [address] Primary Staff Physician Cardiology 12/26/23 Isaías Kinney MD [address] [place] [address] Primary Staff Physician Cardiology 01/10/24 documented as of this encounter
--- OUTSIDE RECORDS SUMMARY | 2025-04-08 10:56 | XMS_ITS | Clinical Summary ---
Author Organization [facility] Address [address], [address] [place] [address] Care Team Providers Care Magnaflux Operator Name Role Phone Unavailable Primary Care Provider [...] - 2023-2 5 season) 2024 Flu vaccine (#1) 04/16/2025 DTaP/Tdap/Td vaccine (2 - Tdap) 06/13/2030 0 [...]
--- OUTSIDE RECORDS SUMMARY | 2025-04-08 10:56 | XMS_ITS | Patient Health Record ---
Author Organization [facility] vices Address [address] [place], [place] [id number] Care Team Providers Care Track Laminating Machine Tender Name Role Phone Kayli Stokes Unavailable [phone] Allergies Allergen (clinical drug ingredient) Drug/Non Drug [...] AT BEDTIME Oral for 30 Days Not-Taking AWARD MACHINE OPERATOR Thyroid Active Furosemide 40 MG Oral for [...] Date Provider Diagnosis Dental Main [address] [place] [phone] 09/02/2024 Kaylicorky Stokes Encounter for scre ening [...] End Date SFS 60 responsible [address] [place] [address] José Miguel Antonio Self - patient is the insured 4 5
--- OUTSIDE RECORDS SUMMARY | 2025-04-08 10:56 | XMS_ITS | Encounter Summary ---
Author Organization 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 Never 08/17/2021 Do you belong to any clubs o r organizations such as adventism groups, unions, fraternal or athletic groups, or [...] Answer Date Recorded Total Score 0 08/17/2021 [facility] - Occupational [...] Recorded Do you need help finding a [facility] and/or a training [...] - 11 x10E9/L 02/22/2025 2:43 PM EDT [facility] RBC Count 3.63(L) 4.1 - 5.7 X10E12/L 02/22/2025 2:43 PM EDT [facility] Hemoglobin 11.3(L) 13 - 17 g/dL 02/22/2025 2:43 PM EDT [facility] Hematocrit 34.6(L) 39 - 50 % 02/22/2025 2:43 PM EDT [facility] MCV 95 80 - 100 fL 02/22/2025 2:43 PM EDT [facility] MCH 31.2 27 - 34 pg 02/22/2025 2:43 PM EDT [facility] MCHC 32.7 32 - 36 g/dL 02/22/2025 2:43 PM EDT [facility] RDW 17.7(H) 11.5 - 15 % 02/22/2025 2:43 PM EDT [facility] Platelet Count 139(L) 150 - 450 X10E9/L 02/22/2025 2:43 PM EDT [facility] MPV 8.4 7 - 12 fL 02/22/2025 2:43 PM EDT [facility] Neutrophils % 69.7 % 02/22/2025 2:43 PM EDT [facility] Lymphocytes % 10.4 % 02/22/2025 2:43 PM EDT [facility] Monocytes % 11.7 % 02/22/2025 2:43 PM EDT [facility] Eosinophils % 7.5 % 02/22/2025 2:43 PM EDT [facility] Basophils % 0.7 % 02/22/2025 2:43 PM EDT [facility] Neutrophils Absolute (A) 2.6 1.5 - 6.6 10*3/uL 02/22/2025 2:43 PM EDT [facility] Lymphocytes Absolute 0.4(L) 1.0 - 3.5 10*3/uL 02/22/2025 2:43 PM EDT [facility] Monocytes Absolute 0.4 0.0 - 0.9 10*3/uL 02/22/2025 2:43 PM EDT [facility] Eosinophils Absolute 0.3 0.0 - 0.4 10*3/uL 02/22/2025 2:43 PM EDT [facility] Basophils Absolute 0.0 0.0 - 0.2 10*3/uL 02/22/2025 2:43 PM EDT [facility] Differential Type AUTOMATED DIFFERENTIAL 02/22/2025 2:43 PM EDT [facility] Blood Venous blood / Unknown 02/22/2025 1:50 PM EDT 02/22/2025 2:25 PM EDT us Samm Serrano MD LAB BLOOD ORDERABLES Final Resu lt [facility] [address] [facility] [place] [address], * (ABNORMAL) Basic Metabolic Panel (02/22/2025 1:50 PM EDT) SODIUM 136 134 - 146 mmol/L 02/22/2025 3:14 PM EDT [facility] POTASSIUM 3.2(L) 3.5 - 5.0 mmol/L 02/22/2025 3:14 PM EDT [facility] CHLORIDE 101 98 - 109 mmol/L 02/22/2025 3:14 PM EDT [facility] CARBON DIOXIDE 23 22 - 32 mmol/L 02/22/2025 3:14 PM EDT [facility] ANION GAP 12 5 - 15 mmol/L 02/22/2025 3:14 PM EDT [facility] BLOOD UREA NITROGEN 47(H) 5 - 27 mg/dL 02/22/2025 3:14 PM EDT [facility] CREATININE 2.32(H) 0.70 - 1.20 mg/dL 02/22/2025 3:14 PM EDT [facility] Comment:METHOD TRACEABLE TO IDMS STANDARD GLUCOSE 154(H) 65 - 99 mg/dL 02/22/2025 3:14 PM EDT [facility] CALCIUM 8.5 8.5 - 10.5 mg/dL 02/22/2025 3:14 PM EDT [facility] EGFR Non-Race Dependent 27(L) >=60 ml/min/1.7 3sq.m 02/22/2025 3:14 PM EDT [facility] Comment: eGFR not reported due to non-numeric value for Creatinine. Reported eGFR is based on the CKD-EPI 2020 equation that does not use a race coefficient. Blood Venous blood / Unknown 02/22/2025 1:50 PM EDT 02/22/2025 2:25 PM EDT us Samm Serrano MD LAB BLOOD ORDERABLES Final Resu lt [facility] [address] documented in this encounter Visit Diagnoses [...] documented as of this encounter Care Teams Contribution Solicitor Relationship Specialty Start Date End Date Samm Serrano MD PCP - General Family Medicine 02/26/24 documented as of this encounter
--- OUTSIDE RECORDS SUMMARY | 2025-04-08 10:56 | XMS_ITS | Encounter Summary ---
Author Organization [facility] [employer] s tem Address [facility] [place] [id number] [address] [place] [address] Care Team Providers Care Communications Programmer Name Role Phone Samm Serrano MD Primary Care Provider [phone] Encounter Details Date Type Department Care Team (Late st Contact Info) Description 04/06/2025 Lab Requisition [facility] - Lab [address] [place] [phone] Samm Serrano MD [address] [place] [address] Hyperkalemia; Non-ST elevation (NSTEMI) myocardial infarction ([facility]-HCC); Heart failure, unspecified ([facility]-HCC) Social History Tobacco Use Types Packs/Day Years [...] How often do you attend chur or amish services? Never 08/17/2021 Do you belong to any clubs o r organizations such as islam groups, unions, fraternal or athletic groups, or [...] Answer Date Recorded Total Score 0 08/17/2021 [facility] - [...] Recorded Do you need help finding a [facility] and/or a training program? No [...] Diagnosis Comments CBC WITH AUTO DIFFERENTIAL Routine 04/06/2025 3:00 PM EDT Hyperkalemia Non-ST elevation (NSTEMI) myocardial infarction (CMS-HCC) Heart failure, unspecified (CMS-HCC) IRON AND TIBC Routine 04/06/2025 3:00 PM EDT Hyperkalemia Non-ST elevation (NSTEMI) myocardial infarction (CMS-HCC) Heart failure, unspecified (CMS-HCC) T3, FREE Routine 04/06/2025 3:00 PM EDT Hyperkalemia Non-ST elevation (NSTEMI) myocardial infarction (CMS-HCC) Heart failure, unspecified (CMS-HCC) TSH Routine 04/06/2025 3:00 PM EDT Hyperkalemia [...] myocardial infarction (CMS-HCC) Heart failure, unspecified (CMS-HCC) documented in this encounter Results * TSH (04/06/2025 3:00 PM EDT) TSH 1.10 0.49 - 4.67 uIU/mL 04/06/2025 4:25 PM EDT [facility] Blood Venous blood / Unknown 04/06/2025 3:00 PM EDT 04/06/2025 3:31 PM EDT us Samm Serrano MD LAB BLOOD ORDERABLES Final Resu lt Performing Organization Address [facility]/ZIP Co de Phone Number [address] [place] [address], * T4, free (04/06/2025 3:00 PM EDT) FREE T4 1.19 0.61 - 1.60 ng/dL 04/06/2025 4:27 PM EDT [facility] Blood Venous blood / Unknown 04/06/2025 3:00 PM EDT 04/06/2025 3:31 PM EDT us Samm Serrano MD LAB BLOOD ORDERABLES Final Resu lt [address] [place] [address], [place] * T3, free (04/06/2025 3:00 PM EDT) FREE T3 2.89 2.50 - 3.90 pg/mL 04/07/2025 2:57 AM EDT [facility] Blood Venous blood / Unknown 04/06/2025 3:00 PM EDT 04/06/2025 3:31 PM EDT Samm Serrano MD LAB BLOOD ORDERABLES Final Resu lt [facility] [address] [place] [address], * Magnesium (04/06/2025 3:00 PM EDT) MAGNESIUM 2.6 1.8 - 2.6 mg/dL 04/06/2025 4:06 PM EDT [facility] Blood Venous blood / Unknown 04/06/2025 3:00 PM EDT 04/06/2025 3:31 PM EDT Samm Serrano MD LAB BLOOD ORDERABLES Final Resu lt [facility] [address] [place] [address], [place] * Iron and TIBC (04/06/2025 3:00 PM EDT) IRON 60 50 - 212 ug/dL 04/07/2025 2:51 AM EDT [facility] TRANSFERRIN 202 168 - 336 mg/dL 04/07/2025 2:51 AM EDT [facility] IRON BINDING 283 250 - 425 ug/dL 04/07/2025 2:51 AM EDT [facility] IRON SATURATION 21 20 - 50 % SATURATION 04/07/2025 2:51 AM EDT [facility] Blood Venous blood / Unknown 04/06/2025 3:00 PM EDT 04/06/2025 3:31 PM EDT us Samm Serrano MD LAB BLOOD ORDERABLES Final Resu lt [facility] [address] [place] [address], [place] [phone] * (ABNORMAL) CBC auto differential (04/06/2025 3:00 PM EDT) WBC 5.7 4 - 11 x10E9/L 04/06/2025 3:55 PM EDT [facility] RBC Count 3.78(L) 4.1 - 5.7 X10E12/L 04/06/2025 3:55 PM EDT [facility] Hemoglobin 11.5(L) 13 - 17 g/dL 04/06/2025 3:55 PM EDT [facility] Hematocrit 34.6(L) 39 - 50 % 04/06/2025 3:55 PM EDT [facility] MCV 92 80 - 100 fL 04/06/2025 3:55 PM EDT [facility] MCH 30.4 27 - 34 pg 04/06/2025 3:55 PM EDT [facility] MCHC 33.2 32 - 36 g/dL 04/06/2025 3:55 PM EDT [facility] RDW 17.3(H) 11.5 - 15 % 04/06/2025 3:55 PM EDT [facility] Platelet Count 143(L) 150 - 450 X10E9/L 04/06/2025 3:55 PM EDT [facility] MPV 8.3 7 - 12 fL 04/06/2025 3:55 PM EDT [facility] Neutrophils % 70.8 % 04/06/2025 3:55 PM EDT [facility] Lymphocytes % 12.9 % 04/06/2025 3:55 PM EDT [facility] Monocytes % 11.5 % 04/06/2025 3:55 PM EDT [facility] Eosinophils % 4.2 % 04/06/2025 3:55 PM EDT [facility] Basophils % 0.6 % 04/06/2025 3:55 PM EDT [facility] Neutrophils Absolute (A) 4.0 1.5 - 6.6 10*3/uL 04/06/2025 3:55 PM EDT [facility] Lymphocytes Absolute 0.7(L) 1.0 - 3.5 10*3/uL 04/06/2025 3:55 PM EDT [facility] Monocytes Absolute 0.7 0.0 - 0.9 10*3/uL 04/06/2025 3:55 PM EDT [facility] Eosinophils Absolute 0.2 0.0 - 0.4 10*3/uL 04/06/2025 3:55 PM EDT [facility] Basophils Absolute 0.0 0.0 - 0.2 10*3/uL 04/06/2025 3:55 PM EDT [facility] Differential Type AUTOMATED DIFFERENTIAL 04/06/2025 3:55 PM EDT [facility] Blood Venous blood / Unknown 04/06/2025 3:00 PM EDT 04/06/2025 3:31 PM EDT us Samm Serrano MD LAB BLOOD ORDERABLES Final Resu lt [facility] [address] [facility] [place] [address], [place] * (ABNORMAL) B-type natriuretic peptide (04/06/2025 3:00 PM EDT) BNP 3,367(H) <=100 pg/mL 04/06/2025 4:27 PM EDT [facility] Blood Venous blood / Unknown 04/06/2025 3:00 PM EDT 04/06/2025 3:31 PM EDT us Samm Serrano MD LAB BLOOD ORDERABLES Final Resu lt [facility] [address] [place] [address], [place] * (ABNORMAL) Basic Metabolic Panel (04/06/2025 3:00 PM EDT) SODIUM 134 134 - 146 mmol/L 04/06/2025 4:06 PM EDT [facility] POTASSIUM 4.9 3.5 - 5.0 mmol/L 04/06/2025 4:06 PM EDT [facility] CHLORIDE 102 98 - 109 mmol/L 04/06/2025 4:06 PM EDT [facility] CARBON DIOXIDE 25 22 - 32 mmol/L 04/06/2025 4:06 PM EDT [facility] ANION GAP 7 5 - 15 mmol/L 04/06/2025 4:06 PM EDT [facility] BLOOD UREA NITROGEN 47(H) 5 - 27 mg/dL 04/06/2025 4:06 PM EDT [facility] CREATININE 2.04(H) 0.70 - 1.20 mg/dL 04/06/2025 4:06 PM EDT [facility] Comment:METHOD TRACEABLE TO IDMS STANDARD GLUCOSE 129(H) 65 - 99 mg/dL 04/06/2025 4:06 PM EDT [facility] CALCIUM 8.9 8.5 - 10.5 mg/dL 04/06/2025 4:06 PM EDT [facility] EGFR Non-Race Dependent 32(L) >=60 ml/min/1.7 3sq.m 04/06/2025 4:06 PM EDT [facility] Comment: eGFR not reported due to non-numeric value for Creatinine. Reported eGFR is based on the CKD-EPI 2020 equation that does not use a race coefficient. Blood Venous blood / Unknown 04/06/2025 3:00 PM EDT 04/06/2025 3:31 PM EDT us Samm Serrano MD LAB BLOOD ORDERABLES Final Resu lt [facility] [address] [place] [address], documented in this encounter Visit Diagnoses Diagnosis Hyperkalemia Hyperpotassemia Non-ST elevation (NSTEMI) myocardial infarction (CMS-HCC) Heart failure, unspecified (CMS-HCC) Heart failure, unspecified documented in this encounter Additional Health Concerns Assessment Noted Time PHQ-9 Depression Total Score: 0 08/17/20 21 12:12 PM EST documented as of this encounter Care Teams Communications Programmer Relationship Specialty Start Date End Date Samm Serrano MD PCP - General Family Medicine 02/26/24 documented as of this encounter
--- OUTSIDE RECORDS SUMMARY | 2025-04-08 10:56 | XMS_ITS | Encounter Summary ---
Author Organization [facility] [employer] s tem Address [facility] [id number] [address] [place] [address] Care Team Providers Care Tonal Regulator Name Role Phone Samm Serrano MD Primary Care Provider [phone] Encounter Details Date Type Department Care Team (Late st Contact Info) Description 03/29/2025 Lab Requisition [facility] - Lab [address] [place] [phone] Samm Serrano MD [address] [place] [address] Hyperkalemia; Non-ST elevation (NSTEMI) myocardial infarction (ENDLESS [...] How often do you attend chur or jehovah's witness services? Never 08/17/2021 Do you belong to any clubs o r organizations such as alevism groups, unions, fraternal or athletic groups, or [...] Date Recorded Total Score 0 08/17/2021 [facility] - Occupational [...] Recorded Do you need help finding a [facility] and/or a training [...] a purpose and direction in my life. Kayan gly Agree 08/17/2021 Sex and Gender Information [...] Comments THYROID PROFILE INCLUDES TSH FT4 Routine 03/29/2025 [...] (CMS-HCC) documented in this encounter Results * Thyroid profile includes TSH FT4 (03/29/2025 3:57 PM EDT) FREE T4 1.12 0.61 - 1.60 ng/dL 03/29/2025 5:51 PM EDT [facility] TSH 0.75 0.49 - 4.67 uIU/mL 03/29/2025 5:51 PM EDT [facility] Blood Venous blood / Unknown 03/29/2025 3:57 PM EDT 03/29/2025 4:40 PM EDT us Samm Serrano MD LAB BLOOD ORDERABLES Final Resu lt [facility] [address] [place] [address], * T3, free (03/29/2025 3:57 PM EDT) FREE T3 2.79 2.50 - 3.90 pg/mL 03/30/2025 12:51 PM EDT [facility] Blood Venous blood / Unknown 03/29/2025 3:57 PM EDT 03/29/2025 4:40 PM EDT us Samm Serrano MD LAB BLOOD ORDERABLES Final Resu lt [facility] [address] [place] [address], [place] [phone] * (ABNORMAL) Magnesium (03/29/2025 3:57 PM EDT) MAGNESIUM 2.7(H) 1.8 - 2.6 mg/dL 03/29/2025 5:28 PM EDT [facility] Blood Venous blood / Unknown 03/29/2025 3:57 PM EDT 03/29/2025 4:40 PM EDT us Samm Serrano MD LAB BLOOD ORDERABLES Final Resu lt [facility] [address] [place] [address], * (ABNORMAL) Iron and TIBC (03/29/2025 3:57 PM EDT) IRON 46(L) 50 - 212 ug/dL 03/30/2025 12:19 PM EDT [facility] TRANSFERRIN 188 168 - 336 mg/dL 03/30/2025 12:19 PM EDT [facility] IRON BINDING 263 250 - 425 ug/dL 03/30/2025 12:19 PM EDT [facility] IRON SATURATION 17(L) 20 - 50 % SATURATION 03/30/2025 12:19 PM EDT [facility] Blood Venous blood / Unknown 03/29/2025 3:57 PM EDT 03/29/2025 4:40 PM EDT us Samm Serrano MD LAB BLOOD ORDERABLES Final Resu lt [facility] [address] [place] [address], [place] [phone] * (ABNORMAL) B-type natriuretic peptide (03/29/2025 3:57 PM EDT) BNP 2,350(H) <=100 pg/mL 03/29/2025 7:00 PM EDT [facility] Blood Venous blood / Unknown 03/29/2025 3:57 PM EDT 03/29/2025 4:40 PM EDT us Samm Serrano MD LAB BLOOD ORDERABLES Final Resu lt [facility] [address] [place] [address], [place] * (ABNORMAL) CBC auto differential (03/29/2025 3:57 PM EDT) WBC 4.6 4 - 11 x10E9/L 03/29/2025 5:02 PM EDT [facility] RBC Count 3.50(L) 4.1 - 5.7 X10E12/L 03/29/2025 5:02 PM EDT [facility] Hemoglobin 10.7(L) 13 - 17 g/dL 03/29/2025 5:02 PM EDT [facility] Hematocrit 31.9(L) 39 - 50 % 03/29/2025 5:02 PM EDT [facility] MCV 91 80 - 100 fL 03/29/2025 5:02 PM EDT [facility] MCH 30.5 27 - 34 pg 03/29/2025 5:02 PM EDT [facility] MCHC 33.4 32 - 36 g/dL 03/29/2025 5:02 PM EDT [facility] RDW 17.0(H) 11.5 - 15 % 03/29/2025 5:02 PM EDT [facility] Platelet Count 149(L) 150 - 450 X10E9/L 03/29/2025 5:02 PM EDT [facility] MPV 8.8 7 - 12 fL 03/29/2025 5:02 PM EDT [facility] Neutrophils % 67.6 % 03/29/2025 5:02 PM EDT [facility] Lymphocytes % 14.0 % 03/29/2025 5:02 PM EDT [facility] Monocytes % 14.0 % 03/29/2025 5:02 PM EDT [facility] Eosinophils % 3.9 % 03/29/2025 5:02 PM EDT [facility] Basophils % 0.5 % 03/29/2025 5:02 PM EDT [facility] Neutrophils Absolute (A) 3.1 1.5 - 6.6 10*3/uL 03/29/2025 5:02 PM EDT [facility] Lymphocytes Absolute 0.6(L) 1.0 - 3.5 10*3/uL 03/29/2025 5:02 PM EDT [facility] Monocytes Absolute 0.6 0.0 - 0.9 10*3/uL 03/29/2025 5:02 PM EDT [facility] Eosinophils Absolute 0.2 0.0 - 0.4 10*3/uL 03/29/2025 5:02 PM EDT [facility] Basophils Absolute 0.0 0.0 - 0.2 10*3/uL 03/29/2025 5:02 PM EDT [facility] Differential Type AUTOMATED DIFFERENTIAL 03/29/2025 5:02 PM EDT [facility] Blood Venous blood / Unknown 03/29/2025 3:57 PM EDT 03/29/2025 4:40 PM EDT us Samm Serrano MD LAB BLOOD ORDERABLES Final Resu lt [facility] [address] [place] [address], [place] * (ABNORMAL) Basic Metabolic Panel (03/29/2025 3:57 PM EDT) SODIUM 134 134 - 146 mmol/L 03/29/2025 5:28 PM EDT [facility] POTASSIUM 4.1 3.5 - 5.0 mmol/L 03/29/2025 5:28 PM EDT [facility] CHLORIDE 106 98 - 109 mmol/L 03/29/2025 5:28 PM EDT [facility] CARBON DIOXIDE 22 22 - 32 mmol/L 03/29/2025 5:28 PM EDT [facility] ANION GAP 6 5 - 15 mmol/L 03/29/2025 5:28 PM EDT [facility] BLOOD UREA NITROGEN 72(H) 5 - 27 mg/dL 03/29/2025 5:28 PM EDT [facility] CREATININE 1.95(H) 0.70 - 1.20 mg/dL 03/29/2025 5:28 PM EDT [facility] Comment:METHOD TRACEABLE TO IDMS STANDARD GLUCOSE 91 65 - 99 mg/dL 03/29/2025 5:28 PM EDT [facility] CALCIUM 8.5 8.5 - 10.5 mg/dL 03/29/2025 5:28 PM EDT [facility] EGFR Non-Race Dependent 34(L) >=60 ml/min/1.7 3sq.m 03/29/2025 5:28 PM EDT [facility] Comment: eGFR not reported due to non-numeric value for Creatinine. Reported eGFR is based on the CKD-EPI 2020 equation that does not use a race coefficient. Blood Venous blood / Unknown 03/29/2025 3:57 PM EDT 03/29/2025 4:40 PM EDT us Samm Serrano MD LAB BLOOD ORDERABLES Final Resu lt [facility] [address] [place] [address], documented in this encounter Visit Diagnoses Diagnosis Hyperkalemia Hyperpotassemia Non-ST elevation (NSTEMI) myocardial infarction (CMS-HCC) Heart failure, unspecified (CMS-HCC) Heart failure, unspecified documented in this encounter Additional Health Concerns Assessment Noted Time PHQ-9 Depression Total Score: 0 08/17/20 21 12:12 PM EST documented as of this encounter Care Teams Tonal Regulator Relationship Specialty Start Date End Date Samm Serrano MD PCP - General Family Medicine 02/26/24 documented as of this encounter
--- OUTSIDE RECORDS SUMMARY | 2025-04-08 10:56 | XMS_ITS | Encounter Summary ---
Author Organization [facility] tem Address [facility] [place] [id number] [address] [place] [address] Care Team Providers Care Tool Storage Attendant Name Role Phone Samm Serrano MD Primary Care Provider [phone] Encounter Details Date Type Department Care Team (Late st Contact Info) Description 02/25/2024 Telephone [facility] - Cardiac Rehab [address] [place] [phone] Sheila Finney RN Social History Tobacco Use [...] often do you attend chur ch or confucianist services? Never 08/17/2021 Do you belong to [...] Answer Date Recorded Total Score 0 08/17/2021 [facility] - Occupational Stress [...] documented as of this encounter Care Teams Tool Storage Attendant Relationship Specialty Start Date End Date Samm Serrano MD PCP - General Family Medicine 02/26/24 documented as of this encounter
--- OUTSIDE RECORDS SUMMARY | 2025-04-08 10:56 | XMS_ITS ---
Author Organization [employer] tem Address [id number] [address] 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 Both and patient are where the most contact pantry goods worker prior to taking the medication. Viagra 1/2 [...] not to proceed. ==== 07/17/2019 ==== [facility] Grade: 3+ 4 equal 7 # of cores Positive: 2 Laterality: Right Patient's PSA is: Approximately 13 Prostate Volume is: 20.7 cc PSA density is: Approximately 0.6 Clinical stage is: Clinical T1c NCCN clinical risk group is: Favorable intermediate risk NCKC Nomogram probability for Lymph Node Metastasis: 2% [...] Referral to be made -per patient choice [facility]. Assessment & Plan (06/28/2021 1:59 [...]
--- OUTSIDE RECORDS SUMMARY | 2025-04-08 10:56 | XMS_ITS | Encounter Summary ---
Author Organization [facility] [employer] [facility] tem Address [facility] [id number] [address] [place] [address] Care Team Providers Care Heater Mechanic Name Role Phone Samm Serrano MD Primary Care Provider [phone] Encounter Details Date Type Department Care Team (Late st Contact Info) Description 02/09/2025 Lab Requisition [facility] - Lab [address] [place] [phone] Samm Serrano MD [address] [place] [address] Acute kidney failure, unspecified; 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 disease, or unspecified chronic kidney disease (CMS-HCC); Chronic systolic (congestive) heart failure ([facility]-HCC) Social History Tobacco Use Types Packs/Day [...] 08/17/2021 How often do you attend [facility] or rastafarian services? Never 08/17/2021 Do you belong to [...] Date Recorded Total Score 0 08/17/2021 [facility] - [...] Recorded Do you need help finding a [facility] career [facility] and/or a training program? [...] - 11 x10E9/L 02/09/2025 4:39 PM EDT [facility] RBC Count 3.74(L) 4.1 - 5.7 X10E12/L 02/09/2025 4:39 PM EDT [facility] Hemoglobin 11.7(L) 13 - 17 g/dL 02/09/2025 4:39 PM EDT [facility] Hematocrit 35.2(L) 39 - 50 % 02/09/2025 4:39 PM EDT [facility] MCV 94 80 - 100 fL 02/09/2025 4:39 PM EDT [facility] MCH 31.3 27 - 34 pg 02/09/2025 4:39 PM EDT [facility] MCHC 33.3 32 - 36 g/dL 02/09/2025 4:39 PM EDT [facility] RDW 17.6(H) 11.5 - 15 % 02/09/2025 4:39 PM EDT [facility] Platelet Count 161 150 - 450 X10E9/L 02/09/2025 4:39 PM EDT [facility] MPV 8.1 7 - 12 fL 02/09/2025 4:39 PM EDT [facility] Neutrophils % 62.7 % 02/09/2025 4:39 PM EDT [facility] Lymphocytes % 16.4 % 02/09/2025 4:39 PM EDT [facility] Monocytes % 14.1 % 02/09/2025 4:39 PM EDT [facility] Eosinophils % 6.3 % 02/09/2025 4:39 PM EDT [facility] Basophils % 0.5 % 02/09/2025 4:39 PM EDT [facility] Neutrophils Absolute (A) 2.6 1.5 - 6.6 10*3/uL 02/09/2025 4:39 PM EDT [facility] Lymphocytes Absolute 0.7(L) 1.0 - 3.5 10*3/uL 02/09/2025 4:39 PM EDT [facility] Monocytes Absolute 0.6 0.0 - 0.9 10*3/uL 02/09/2025 4:39 PM EDT [facility] Eosinophils Absolute 0.3 0.0 - 0.4 10*3/uL 02/09/2025 4:39 PM EDT [facility] Basophils Absolute 0.0 0.0 - 0.2 10*3/uL 02/09/2025 4:39 PM EDT [facility] Differential Type AUTOMATED DIFFERENTIAL 02/09/2025 4:39 PM EDT [facility] Blood Venous blood / Unknown 02/09/2025 3:27 PM EDT 02/09/2025 4:19 PM EDT us Samm Serrano MD LAB BLOOD ORDERABLES Final Resu lt [facility] [address] [place] [address], * (ABNORMAL) Comprehensive metabolic panel (02/09/2025 3:27 PM EDT) SODIUM 133(L) 134 - 146 mmol/L 02/09/2025 4:45 PM EDT [facility] POTASSIUM 3.8 3.5 - 5.0 mmol/L 02/09/2025 4:45 PM EDT [facility] CHLORIDE 102 98 - 109 mmol/L 02/09/2025 4:45 PM EDT [facility] CARBON DIOXIDE 27 22 - 32 mmol/L 02/09/2025 4:45 PM EDT [facility] ANION GAP 4(L) 5 - 15 mmol/L 02/09/2025 4:45 PM EDT [facility] BLOOD UREA NITROGEN 49(H) 5 - 27 mg/dL 02/09/2025 4:45 PM EDT [facility] CREATININE 2.18(H) 0.70 - 1.20 mg/dL 02/09/2025 4:45 PM EDT [facility] Comment:METHOD TRACEABLE TO IDMS STANDARD GLUCOSE 88 65 - 99 mg/dL 02/09/2025 4:45 PM EDT [facility] CALCIUM 8.6 8.5 - 10.5 mg/dL 02/09/2025 4:45 PM EDT [facility] TOTAL PROTEIN 6.8 6.0 - 8.0 g/dL 02/09/2025 4:45 PM EDT [facility] ALBUMIN 3.3 3.2 - 5.3 g/dL 02/09/2025 4:45 PM EDT [facility] ALKALINE PHOSPHATASE 117 39 - 130 U/L 02/09/2025 4:45 PM EDT [facility] AST 20 <=41 U/L 02/09/2025 4:45 PM EDT [facility] ALT 11 <=40 U/L 02/09/2025 4:45 PM EDT [facility] BILIRUBIN,TOTAL 1.1 0.3 - 1.2 mg/dL 02/09/2025 4:45 PM EDT [facility] EGFR Non-Race Dependent 29(L) >=60 ml/min/1.7 3sq.m 02/09/2025 4:45 PM EDT [facility] Comment: eGFR not reported due to non-numeric value for Creatinine. Reported eGFR is based on the CKD-EPI 2020 equation that does not use a race coefficient. Blood Venous blood / Unknown 02/09/2025 3:27 PM EDT 02/09/2025 4:19 PM EDT us Samm Serrano MD LAB BLOOD ORDERABLES Final Resu lt Performing Organization Address City/State/[facility] Co de Phone Number [facility] [address] [place] [address] documented in this encounter Visit Diagnoses Diagnosis [...] documented as of this encounter Care Teams Heater Mechanic Relationship Specialty Start Date End Date Samm Serrano MD PCP - General Family Medicine 02/26/24 documented as of this encounter
--- OUTSIDE RECORDS SUMMARY | 2025-04-08 10:56 | XMS_ITS | Clinical Summary ---
Author Organization [facility] Address [address] [place] [address] Care Team Providers Care Cloud Engagement Partner Name Role Phone Samm Serrano MD Primary Care Provider [phone] Allergies Active Allergy Reactions Criticality Noted Date Comments Penicillins 12/03/2024 Medications apixaban (Eliquis) 2.5 MG tablet Take 2.5 mg by mouth in the morning and 2.5 mg before bedtime. Active levothyroxine (Tirosint) 88 MCG capsule Take by mouth in the morning. Take before meals. Active metoprolol succinate XL (Toprol-XL) 25 MG 24 hr tablet Take by mouth Do not crush or chew. Active mexiletine (Mexitil) 150 MG capsule Take 150 mg by mouth every 8 (eight) hours Active bumetanide (Bumex) 2 MG tablet Take by mouth Daily Active cetirizine (ZyrTEC) 10 MG tablet Take by mouth Active potassium chloride CR (Klor-Con M20) 20 MEQ ER tablet Take 20 mEq by mouth Daily Do not crush or chew. Active ondansetron (Zofran) 4 MG tablet Take by mouth Active aMILoride (Midamor) 5 MG tablet Take 5 mg by mouth in the morning. 5 Active liothyronine (Cytomel) 5 MCG tablet Take 5 mcg by mouth in the morning. 5 04/15/20 25 Active metoprolol tartrate (Lopressor) 25 MG tablet every 12 (twelve) hours Active potassium chloride CR (K-Tab) 20 MEQ ER tablet 5 Active levothyroxine (Synthroid, Levoxyl) 100 MCG tablet 5 Active thiamine (Vitamin B-1) 100 MG tablet Take 100 mg by mouth Daily 03/25/20 25 Discontinue d(Therapy completed) cephalexin (Keflex) 500 MG capsule Take 500 mg by mouth in the morning and 500 mg at noon and 500 mg in the evening and 500 mg before bedtime. 5 03/26/20 25 Encounters Date Type Department Care Team Description 03/25/2025 3:30 PM EDT Procedure Visit [facility] [address] [place] [address] Rohit Covington DPM Dystrophic nail (Primary Dx); Pain around toenail, right foot; Pain around toenail, left foot; Peripheral arterial disease 03/25/2025 Bamboo flowsheet [facility] [address] [place] [address] Rohit Covington DPM 03/25/2025 Travel from Last 3 Months Family History Relation Name Status Comments Father Mother Social [...] Mass Index 20.34 03/25/2025 3:18 PM EDT Plan of Treatment Upcoming Encounters Date Type Department Care Team (Late st Contact Info) Description 05/13/2025 3:35 PM EDT Office Visit [facility] [address] [place] [phone] Krystal Turner MD [address] [place] [address] 07/07/2025 1:00 PM EDT Procedure Visit [facility] [address] [place] [phone] Rohit Covington DPPaulina [address] [place], [place] [phone] Insurance [employer] Care Teams Cloud Engagement Partner Relationship Specialty Start Date End Date Samm Serrano MD [address] [facility] [place] [phone] PCP - General Family Medicine 03/24/25
--- OUTSIDE RECORDS SUMMARY | 2025-04-08 10:56 | XMS_ITS | Encounter Summary ---
Author Organization [facility] [employer] s tem Address [id number] [address] [place] [address] Care Team Providers Care Tmd Teacher Assistant Name Role Phone Samm Serrano MD Primary Care Provider [phone] Encounter Details Date Type Department Care Team (Late st Contact Info) Description 03/24/2025 Lab Requisition [facility] - Lab [address] [place] [id number] Samm Serrano MD [address] [place] [address] Chronic systolic (congestive) heart failure (CMS-HCC); Chronic kidney disease, stage 3 unspecified (CMS-HCC) Social History Tobacco Use Types Packs/Day [...] How often do you attend chur or roman catholic services? Never 08/17/2021 Do you belong to any clubs o r organizations such as faith groups, unions, fraternal or athletic groups, or [...] Date Recorded Total Score 0 08/17/2021 [facility] - Occupational [...] Diagnosis Comments CBC WITH AUTO DIFFERENTIAL Routine 03/24/2025 11:38 AM EDT Chronic systolic (congestive) heart failure (CMS-HCC) Chronic kidney disease, stage 3 unspecified (CMS-HCC) PROSTATIC SPECIFIC ANTIGEN SCREEN Routine [...] AM EDT Chronic systolic (congestive) heart failure ([facility]-HCC) Chronic kidney disease, stage 3 unspecified (CMS-HCC) documented in this encounter Results * Prostatic specific antigen screen (03/24/2025 11:38 AM EDT) Pathologist [facility] PROSTATIC SPEC ANT <0.01 0.00 - 4.00 ng/mL 03/24/2025 7:33 PM EDT [facility] Comment: The method used for this test is Ronna [employer] DXI chemiluminescent immunoassay. Values obtained by different assay methods cannot be used interchangeably. Blood Venous blood / Unknown 03/24/2025 11:38 AM EDT 03/24/2025 12:16 PM EDT us Samm Serrano MD LAB BLOOD ORDERABLES Final Resu lt [facility] [address] [place] [address], [place] [phone] * (ABNORMAL) CBC auto differential (03/24/2025 11:38 AM EDT) [facility] WBC 5.2 4 - 11 x10E9/L 03/24/2025 12:19 PM EDT [facility] RBC Count 3.86(L) 4.1 - 5.7 X10E12/L 03/24/2025 12:19 PM EDT [facility] Hemoglobin 11.6(L) 13 - 17 g/dL 03/24/2025 12:19 PM EDT [facility] Hematocrit 35.5(L) 39 - 50 % 03/24/2025 12:19 PM EDT [facility] MCV 92 80 - 100 fL 03/24/2025 12:19 PM EDT [facility] MCH 30.0 27 - 34 pg 03/24/2025 12:19 PM EDT [facility] MCHC 32.6 32 - 36 g/dL 03/24/2025 12:19 PM EDT [facility] RDW 17.4(H) 11.5 - 15 % 03/24/2025 12:19 PM EDT [facility] Platelet Count 179 150 - 450 X10E9/L 03/24/2025 12:19 PM EDT [facility] MPV 9.2 7 - 12 fL 03/24/2025 12:19 PM EDT [facility] Neutrophils % 69.6 % 03/24/2025 12:19 PM EDT [facility] Lymphocytes % 13.4 % 03/24/2025 12:19 PM EDT [facility] Monocytes % 12.5 % 03/24/2025 12:19 PM EDT [facility] Eosinophils % 4.0 % 03/24/2025 12:19 PM EDT [facility] Basophils % 0.5 % 03/24/2025 12:19 PM EDT [facility] Neutrophils Absolute (A) 3.6 1.5 - 6.6 10*3/uL 03/24/2025 12:19 PM EDT [facility] Lymphocytes Absolute 0.7(L) 1.0 - 3.5 10*3/uL 03/24/2025 12:19 PM EDT [facility] Monocytes Absolute 0.7 0.0 - 0.9 10*3/uL 03/24/2025 12:19 PM EDT [facility] Eosinophils Absolute 0.2 0.0 - 0.4 10*3/uL 03/24/2025 12:19 PM EDT [facility] Basophils Absolute 0.0 0.0 - 0.2 10*3/uL 03/24/2025 12:19 PM EDT [facility] Differential Type AUTOMATED DIFFERENTIAL 03/24/2025 12:19 PM EDT [facility] Blood Venous blood / Unknown 03/24/2025 11:38 AM EDT 03/24/2025 12:16 PM EDT us Samm Serrano MD LAB BLOOD ORDERABLES Final Resu lt Performing Organization Address [facility] Co de Phone Number [address] [place] [address], [place] * (ABNORMAL) AST (03/24/2025 11:38 AM EDT) AST 49(H) <=41 U/L 03/24/2025 12:34 PM EDT [facility] Blood Venous blood / Unknown 03/24/2025 11:38 AM EDT 03/24/2025 12:16 PM EDT us Samm Serrano MD LAB BLOOD ORDERABLES Final Resu lt Performing Organization Address [facility] Co de Phone Number [address] [place] [address], [place] * ALT (03/24/2025 11:38 AM EDT) ALT 39 <=40 U/L 03/24/2025 12:34 PM EDT [facility] Blood Venous blood / Unknown 03/24/2025 11:38 AM EDT 03/24/2025 12:16 PM EDT us Samm Serrano MD LAB BLOOD ORDERABLES Final Resu lt Performing Organization Address City/[facility] Co de Phone Number [address] [place] [address], [place] * (ABNORMAL) Liver panel (03/24/2025 11:38 AM EDT) TOTAL PROTEIN 6.4 6.0 - 8.0 g/dL 03/24/2025 12:34 PM EDT [facility] ALBUMIN 3.2 3.2 - 5.3 g/dL 03/24/2025 12:34 PM EDT [facility] BILIRUBIN,TOTAL 0.8 0.3 - 1.2 mg/dL 03/24/2025 12:34 PM EDT [facility] ALKALINE PHOSPHATASE 138(H) 39 - 130 U/L 03/24/2025 12:34 PM EDT [facility] AST 49(H) <=41 U/L 03/24/2025 12:34 PM EDT [facility] ALT 39 <=40 U/L 03/24/2025 12:34 PM EDT [facility] BILIRUBIN,DIRECT 0.4 <=0.4 mg/dL 03/24/2025 12:34 PM EDT [facility] Blood Venous blood / Unknown 03/24/2025 11:38 AM EDT 03/24/2025 12:16 PM EDT us Samm Serrano MD LAB BLOOD ORDERABLES Final Resu lt Performing Organization Address City/State/[facility] Co de Phone Number [facility] [address] [place] [address], * Lipid profile (03/24/2025 11:38 AM EDT) CHOLESTEROL 154 150 - 200 mg/dL 03/24/2025 7:28 PM EDT [facility] TRIGLYCERIDE 55 27 - 150 mg/dL 03/24/2025 7:28 PM EDT [facility] HDL CHOLESTEROL 49 >39 mg/dL 7:28 PM EDT [facility] Comment: HDL <40 mg/dL - High Risk HDL > or = 40mg/dL- Desirable HDL >60 mg/dL - Negative Risk LDL (CALC) 94 <130 mg/dL 03/24/2025 7:28 PM EDT [facility] Comment: LDL <100 mg/dL - Desirable LDL >160 mg/dL - High Risk CHOLESTEROL:HDL 3.1 1.0 - 5.0 7:28 PM EDT [facility] VERY LOW LIPOPROTEIN 11 0 - 30 mg/dL 03/24/2025 7:28 PM EDT [facility] Blood Venous blood / Unknown 03/24/2025 11:38 AM EDT 03/24/2025 12:16 PM EDT us Samm Serrano MD LAB BLOOD ORDERABLES Final Resu lt [facility] [address] [place] [address], * (ABNORMAL) Basic Metabolic Panel (03/24/2025 11:38 AM EDT) SODIUM 134 134 - 146 mmol/L 03/24/2025 12:34 PM EDT [facility] POTASSIUM 4.7 3.5 - 5.0 mmol/L 03/24/2025 12:34 PM EDT [facility] CHLORIDE 104 98 - 109 mmol/L 03/24/2025 12:34 PM EDT [facility] CARBON DIOXIDE 21(L) 22 - 32 mmol/L 03/24/2025 12:34 PM EDT [facility] ANION GAP 9 5 - 15 mmol/L 03/24/2025 12:34 PM EDT [facility] BLOOD UREA NITROGEN 78(H) 5 - 27 mg/dL 03/24/2025 12:34 PM EDT [facility] CREATININE 2.00(H) 0.70 - 1.20 mg/dL 03/24/2025 12:34 PM EDT [facility] Comment:METHOD TRACEABLE TO IDMS STANDARD GLUCOSE 121(H) 65 - 99 mg/dL 03/24/2025 12:34 PM EDT [facility] CALCIUM 8.9 8.5 - 10.5 mg/dL 03/24/2025 12:34 PM EDT [facility] EGFR Non-Race Dependent 33(L) >=60 ml/min/1.7 3sq.m 03/24/2025 12:34 PM EDT [facility] Comment: eGFR not reported due to non-numeric value for Creatinine. Reported eGFR is based on the CKD-EPI 2020 equation that does not use a race coefficient. Blood Venous blood / Unknown 03/24/2025 11:38 AM EDT 03/24/2025 12:16 PM EDT us Samm Serrano MD LAB BLOOD ORDERABLES Final Resu lt Performing Organization Address City/State/[facility] Co de Phone Number [facility] [address] documented in this encounter Visit Diagnoses Diagnosis Chronic systolic (congestive) heart failure (CMS-HCC) Chronic kidney disease, stage 3 unspecified (CMS-HCC) documented in this encounter Additional Health Concerns Assessment Noted Time PHQ-9 Depression Total Score: 0 08/17/20 21 12:12 PM EST documented as of this encounter Care Teams Tmd Teacher Assistant Relationship Specialty Start Date End Date Samm Serrano MD PCP - General Family Medicine 02/26/24 documented as of this encounter
--- OUTSIDE RECORDS SUMMARY | 2025-04-08 10:56 | XMS_ITS | Encounter Summary ---
Author Organization [facility] Address [address] [place] [address] Care Team Providers Care Supervisor Cemetery Workers Name Role Phone Samm Serrano MD Primary Care Provider +-4 Tom Gonzalez Unavailable [phone] Andreas Pierre MD Unavailable Virgil Carrillo MD Unavailable Jethro Mendoza MD Unavailable Isaías Kinney MD Unavailable [phone] Source Comments In the event this information is protected by the Federal Confidentiality of Alcohol and Drug AbusePatient Records regulations: The Federal rules restrict any use of the information to criminally investigate or prosecute any alcohol or drug abuse patient.[facility] Encounter Details Date Type Department Care Team (Late st Contact Info) Description 09/28/2024 Patient Msg Radiation Oncology [address] [place] [address] [place] [address] Yung Andrade MD [address] [place] [address] Appointment Cancellation Request Social History Tobacco Use Types Packs/Day Years Used Date Smoking Tobacco: Former Cigarettes 1 10 0 04/28/1972 - 04/28/1982 Pipe Passive Smoke Exposure: Never Smokeless Tobacco: Never Alcohol Use Standard Drinks/Week Comments Not Currently 0 (1 standard drink = 0.6 oz pur e alcohol) rarely [facility] Utilities Answer Date Recorded [...] 3 02/05/2024 Data from: https://www.neighborhoodatlas.medicine.[facility].edu/. Last address used for calculation [address] [place] [address] [address] 02/05/2024 Sex and Gender Information [...] 06/30/2025 10:00 AM EDT Office Visit Cardiology [address] [place] [address] Isaías Kinney MD [address] [place] [address] DX: Chronic diastolic heart failure 09/20/2025 8:15 AM EST Procedure Cardiology [address] [place] [phone] Dx. Atherosclerotic heart disease of [place] coronary artery with other forms of angina pectoris 09/20/2025 9:00 AM EST Appointment Cardiology [address] [place] [address] Dx. Atherosclerotic heart disease of [place] coronary artery with other forms of angina pectoris 09/20/2025 9:45 AM EST Office Visit Cardiology [address] [place] [address] Nj Wei MD [address] [place] [address] Dx. Atherosclerotic heart disease of [place] coronary artery with other forms of angina pectoris documented as of this encounter Goals Goal Patient Goal Type Associated Problems Recent Progress Patient-Stated? Author Blood Pressure < 130/80 Blood Pressure 134/63( 025 3:00 PM EDT) No Lidia Lo RN documented as of this encounter Visit Diagnoses Not on filedocumented in this encounter Care Teams Supervisor Cemetery Workers Relationship Specialty Start Date End Date Samm Serrano MD PCP - General Family Medicine 05/30/12 Tom Gonzalez [address] [place] [address] Primary Staff Physician Cardiology 12/02/18 Andreas Pierre MD [address] [place], [place] [phone] Primary Staff Physician Cardiology 04/26/23 Virgil Carrillo MD [address] [place] [phone] Primary Staff Physician Cardiology 10/29/23 Jethro Mendoza MD [address] [place] [address] Primary Staff Physician Cardiology 12/26/23 Isaías Kinney MD [address] [place] [address] Primary Staff Physician Cardiology 01/10/24 documented as of this encounter
--- OUTSIDE RECORDS SUMMARY | 2025-04-08 10:57 | XMS_ITS | Encounter Summary ---
Author Organization [facility] Address [address] [place] [address] Care Team Providers Care Rn Supplemental Name Role Phone Samm Serrano MD Primary Care Provider +-4 Tom Gonzalez Unavailable [phone] Andreas Pierre MD Unavailable Virgil Carrillo MD Unavailable Jethro Mendoza MD Unavailable Isaías Kinney MD Unavailable [phone] Source Comments In the event this information is protected by the Federal Confidentiality of Alcohol and Drug AbusePatient Records regulations: The Federal rules restrict any use of the information to criminally investigate or prosecute any alcohol or drug abuse patient.[facility] Encounter Details Date Type Department Care Team (Late st Contact Info) Description 11/01/2023 Get Medical Advice Cardiology [address] [place], [place] [phone] Virgil Carrillo MD [address] [place] [address] additional lab results (OZ-Itz-K-Type Natriuretic Peptide) Social History Tobacco Use Types [...] lower risk 3 04/02/2023 Data from: https://www.neigh borhoodatlas.medicine.[facility].edu/. Last address used for calculation [address] [...] 06/30/2025 10:00 AM EDT Office Visit Cardiology [address] [place] [address] Isaías Kinney MD [address] [phone] DX: Chronic diastolic heart failure 09/20/2025 8:15 AM EST Procedure Cardiology [address] [place] [address] Dx. Atherosclerotic heart disease of [place] coronary artery with other forms of angina pectoris 09/20/2025 9:00 AM EST Appointment Cardiology [address] [place] [address] Dx. Atherosclerotic heart disease of [place] coronary artery with other forms of angina pectoris 09/20/2025 9:45 AM EST Office Visit Cardiology [address] [place] [address] Nj Wei MD [address] [place] [address] Dx. Atherosclerotic heart disease of [place] coronary artery with other forms of angina pectoris documented as of this encounter Visit Diagnoses Not on filedocumented in this encounter Care Teams Rn Supplemental Relationship Specialty Start Date End Date Samm Serrano MD PCP - General Family Medicine 05/30/12 Tom Gonzalez [address] [place] [address] Primary Staff Physician Cardiology 12/02/18 Andreas Pierre MD [address] [facility] [place] [address] Primary Staff Physician Cardiology 04/26/23 Virgil Carrillo MD [address] [place] [address] Primary Staff Physician Cardiology 10/29/23 Jethro Mendoza MD [address] [facility] [place] [address] Primary Staff Physician Cardiology 12/26/23 Isaías Kinney MD [address] [place] [address] Primary Staff Physician Cardiology 01/10/24 documented as of this encounter
--- OUTSIDE RECORDS SUMMARY | 2025-04-08 10:57 | XMS_ITS | Encounter Summary ---
Author Organization [facility] Address [address] [place] [address] Care Team Providers Care Field Aide Name Role Phone Samm Serrano MD Primary Care Provider +-4 Tom Gonzalez Unavailable [phone] Andreas Pierre MD Unavailable Virgil Carrillo MD Unavailable Jethro Mendoza MD Unavailable Isaías Kinney MD Unavailable [phone] Source Comments In the event this information is protected by the Federal Confidentiality of Alcohol and Drug AbusePatient Records regulations: The Federal rules restrict any use of the information to criminally investigate or prosecute any alcohol or drug abuse patient.[facility] Encounter Details Date Type Department Care Team (Late st Contact Info) Description 11/01/2023 Get Medical Advice Cardiology [address] [place], [place] [phone] Virgil Carrillo MD [address] [place] [address] Lab results from 24 Social History Tobacco [...] lower risk 3 04/02/2023 Data from: https://www.neigh borhoodatlas.[facility].edu/. Last address used for calculation [address] [...] of Assessment Author No 03/25/2019 11:00 AM EDJia Carlisle RN (Hist) documented as of this encounter [...] 06/30/2025 10:00 AM EDT Office Visit Cardiology [address] [place] [address] Isaías Kinney MD [address] [place] [address] DX: Chronic diastolic heart failure 09/20/2025 8:15 AM EST Procedure Cardiology [address] [place] [phone] Dx. Atherosclerotic heart disease of [place] coronary artery with other forms of angina pectoris 09/20/2025 9:00 AM EST Appointment Cardiology [address] [place] [address] Dx. Atherosclerotic heart disease of [place] coronary artery with other forms of angina pectoris 09/20/2025 9:45 AM EST Office Visit Cardiology [address] [place] [address] Nj Wei MD [address] [place] [address] Dx. Atherosclerotic heart disease of [place] coronary artery with other forms of angina pectoris documented as of this encounter Visit Diagnoses Not on filedocumented in this encounter Care Teams Field Aide Relationship Specialty Start Date End Date Samm Serrano MD PCP - General Family Medicine 05/30/12 Tom Gonzalez [address] [place] [address] Primary Staff Physician Cardiology 12/02/18 Andreas Pierre MD [address] [place] [address] Primary Staff Physician Cardiology 04/26/23 Virgil Carrillo MD [address] [place] [address] Primary Staff Physician Cardiology 10/29/23 Jethro Mendoza MD [address] [place] [address] Primary Staff Physician Cardiology 12/26/23 Isaías Kinney MD [address] [place] [address] Primary Staff Physician Cardiology 01/10/24 documented as of this encounter
--- OUTSIDE RECORDS SUMMARY | 2025-04-08 10:57 | XMS_ITS | Encounter Summary ---
Author Organization [facility] Address [address] [place] [address] Care Team Providers Care Workers Compensation Claims Adjuster Name Role Phone Samm Serrano MD Primary Care Provider +-4 Tom Gonzalez Unavailable [phone] Andreas Pierre MD Unavailable Virgil Carrillo MD Unavailable Jethro Mendoza MD Unavailable Isaías Kinney MD Unavailable [phone] Source Comments In the event this information is protected by the Federal Confidentiality of Alcohol and Drug AbusePatient Records regulations: The Federal rules restrict any use of the information to criminally investigate or prosecute any alcohol or drug abuse patient.[facility] Encounter Details Date Type Department Care Team (Late st Contact Info) Description 01/21/2025 Get Medical Advice Cardiology [address] [place], [place] [phone] Isaías Kinney MD [address] [place] [address] Thyroid labs and medication Social History Tobacco Use Types Packs/Day Years Used Date Smoking Tobacco: Former Cigarettes 1 10 0 04/28/1972 - 04/28/1982 Pipe Passive Smoke Exposure: Never Smokeless Tobacco: Never Alcohol Use Standard Drinks/Week Comments Not Currently 0 (1 standard drink = 0.6 oz pur e alcohol) rarely [facility] Utilities Answer Date Recorded In the past 12 months has th e [employer], gas, oil, or water [employer] threatened to shut off services in your [...] to sleep or slept in a senior care (including now)? No 03/02/2024 Housing Stability Vital Sign Answer Akbar e Recorded In the last 12 months, was t here a time when you were not able to pay the mortgage or rent on time? Yes 07/22/2024 In the past 12 months, how m any times have you moved where you were living? 0 07/22/2024 At any time in the past 12 m [facility], were you homeless or living in a senior care (including now)? Yes 07/22/2024 Area Deprivation Index Answer Date Rich rded National Score (1-100), lower number is lower ri sk 52 02/05/2024 State Score (1-10), lower number is lower risk 3 02/05/2024 Data from: https://www.neighborhoodatlas.[facility].edu/. Last address used for calculation [address] [place] [address] [address] 02/05/2024 Sex and Gender Information [...] 06/30/2025 10:00 AM EDT Office Visit Cardiology [address] [place] [address] Isaías Kinney MD [address] [place] [address] DX: Chronic diastolic heart failure 09/20/2025 8:15 AM EST Procedure Cardiology [address] [place] [address] Dx. Atherosclerotic heart disease of [place] coronary artery with other forms of angina pectoris 09/20/2025 9:00 AM EST Appointment Cardiology [address] [place] [address] Dx. Atherosclerotic heart disease of [place] coronary artery with other forms of angina pectoris 09/20/2025 9:45 AM EST Office Visit Cardiology [address] [place] [address] Nj Wei MD [address] [place] [address] Dx. Atherosclerotic heart disease of [place] coronary artery with other forms of angina pectoris documented as of this encounter Goals Goal Patient Goal Type Associated Problems Recent Progress Patient-Stated? Author Blood Pressure < 130/80 Blood Pressure 134/63( 025 3:00 PM EDT) No Lidia Lo RN documented as of this encounter Visit Diagnoses Not on filedocumented in this encounter Care Teams Workers Compensation Claims Adjuster Relationship Specialty Start Date End Date Samm Serrano MD PCP - General Family Medicine 05/30/12 Tom Gonzalez [address] [place] [address] Primary Staff Physician Cardiology 12/02/18 Andreas Pierre MD [address] [place] [address] Primary Staff Physician Cardiology 04/26/23 Virgil Carrillo MD [address] [place] [address] Primary Staff Physician Cardiology 10/29/23 Jethro Mendoza MD [address] [place] [address] Primary Staff Physician Cardiology 12/26/23 Isaías Kinney MD [address] [place] [address] Primary Staff Physician Cardiology 01/10/24 documented as of this encounter
--- OUTSIDE RECORDS SUMMARY | 2025-04-08 10:57 | XMS_ITS | Encounter Summary ---
Author Organization [facility] Address [address] [place] [address] Care Team Providers Care Director Bioinformatics Name Role Phone Samm Serrano MD Primary Care Provider +-4 Tom Gonzalez Unavailable [phone] Andreas Pierre MD Unavailable Virgil Carrillo MD Unavailable Jethro Mendoza MD Unavailable Isaías Kinney MD Unavailable [phone] Source Comments In the event this information is protected by the Federal Confidentiality of Alcohol and Drug AbusePatient Records regulations: The Federal rules restrict any use of the information to criminally investigate or prosecute any alcohol or drug abuse patient.[facility] Reason for Visit * Reason Comments Follow Up Encounter Details Date Type Department Care Team (Late st Contact Info) Description 12/10/2024 Telephone Cardiology [address] [place] [address] Isaías Kinney MD [address] [place] [address] Follow Up Social History Tobacco Use Types Packs/Day Years Used Date Smoking Tobacco: Former Cigarettes 1 10 0 04/28/1972 - 04/28/1982 Pipe Passive Smoke Exposure: Never Smokeless Tobacco: Never Alcohol Use Standard Drinks/Week Comments Not Currently 0 (1 standard drink = 0.6 oz pur e alcohol) rarely [facility] Utilities Answer Date Recorded In the [...] medical center.edu/. Last address used for calculation [address] [place] [address] [address] 02/05/2024 Sex and Gender Information [...] Date Author No 09/25/2024 12:55 PM Allyn aGrcia, RN documented in this encounter Miscellaneous Notes * Telephone Encounter - Isaías Kinney MD - 12/15/2024 9:57 AM EDT Conveyed echo results via [employer]. Can add on virtual on administrative day in late December please. Micaela Kinney MD MSc * Telephone Encounter - Linsday Ross - 12/10/2024 1:08 PM EDT Patient had EKG and echo this past Saturday. Please call with results to daughter Charu [phone]. Thank you, Lindsay documented in this encounter Plan of Treatment Upcoming Encounters Date Type Department Care Team (Latest Contact Info) Description 06/30/2025 10:00 AM EDT Office Visit Cardiology [address] [place], [place] [phone] Isaías Kinney MD [address] [place] [address] DX: Chronic diastolic heart failure 09/20/2025 8:15 AM EST Procedure Cardiology [address] [place] [address] Dx. Atherosclerotic heart disease of [place] coronary artery with other forms of angina pectoris 09/20/2025 9:00 AM EST Appointment Cardiology [address] [place] [address] Dx. Atherosclerotic heart disease of [place] coronary artery with other forms of angina pectoris 09/20/2025 9:45 AM EST Office Visit Cardiology [address] [place] [address] Nj Wei MD [address] [place] [address] Dx. Atherosclerotic heart disease of [place] coronary artery with other forms of angina pectoris documented as of this encounter Goals Goal Patient Goal Type Associated Problems Recent Progress Patient-Stated? Author Blood Pressure < 130/80 Blood Pressure 134/63( 025 3:00 PM EDT) Lidia Soto, RN documented as of this encounter Visit Diagnoses Not on filedocumented in this encounter Care Teams Director Bioinformatics Relationship Specialty Start Date End Date Samm Serrano MD PCP - General Family Medicine 05/30/12 Tom Gonzalez [address] [place] [address] Primary Staff Physician Cardiology 12/02/18 Andreas Pierre MD [address] [place] [address] Primary Staff Physician Cardiology 04/26/23 Virgil Carrillo MD [address] [place], [place] [phone] Primary Staff Physician Cardiology 10/29/23 Jethro Mendoza MD [address] [place] [address] Primary Staff Physician Cardiology 12/26/23 Isaías Kinney MD [address] [place] [address] Primary Staff Physician Cardiology 01/10/24 documented as of this encounter
--- OUTSIDE RECORDS SUMMARY | 2025-04-08 10:57 | XMS_ITS | Encounter Summary ---
Author Organization [facility] Address [address] [place] [address] Care Team Providers Care Market Analyst Name Role Phone Samm Serrano MD Primary Care Provider +-4 Tom Gonzalez Unavailable [phone] Andreas Pierre MD Unavailable Virgil Carrillo MD Unavailable Jethro Mendoza MD Unavailable Isaías Kinney MD Unavailable [phone] Source Comments In the event this information is protected by the Federal Confidentiality of Alcohol and Drug AbusePatient Records regulations: The Federal rules restrict any use of the information to criminally investigate or prosecute any alcohol or drug abuse patient.[facility] Reason for Visit * Reason Comments Appointment Encounter Details Date Type Department Care Team (Late st Contact Info) Description 12/22/2024 Telephone [facility] [address] [place] [address] Jesusita EsparzaANAND.FREIGHT FORWARDER [address] [place] [phone] Appointment Social History Tobacco Use Types Packs/Day [...] lower risk 3 02/05/2024 Data from: https://www.neighborhoodatlas.medicine.[facility].edu/. Last address used for calculation [address] [place] [address] [address] 02/05/2024 Sex and Gender Information [...] Date of . ( José Miguel Antonio , 1940). Yes Number to return call [phone] Reason for Call: Appointments [facility] [...] call back as soon as possible at [phone]. This encounter will also be forwarded to our front office developer as well. documented in this encounter Plan of Treatment Upcoming Encounters Date Type Department Care Team (Latest Contact Info) Description 06/30/2025 10:00 AM EDT Office Visit Cardiology [address] [place] [address] Isaías Kinney MD [address] [place] [address] DX: Chronic diastolic heart failure 09/20/2025 8:15 AM EST Procedure Cardiology [address] [place] [address] Dx. Atherosclerotic heart disease of [place] coronary artery with other forms of angina pectoris 09/20/2025 9:00 AM EST Appointment Cardiology [address] [place] [phone] Dx. Atherosclerotic heart disease of [place] coronary artery with other forms of angina pectoris 09/20/2025 9:45 AM EST Office Visit Cardiology [address] [place] [phone] Nj Wei MD [address] [place] [phone] Dx. Atherosclerotic heart disease of [place] coronary artery with other forms of angina pectoris documented as of this encounter Goals Goal Patient Goal Type Associated Problems Recent Progress Patient-Stated? Author Blood Pressure < 130/80 Blood Pressure 134/63( 025 3:00 PM EDT) Lidia Soto, ARIES documented as of this encounter Visit Diagnoses Not on filedocumented in this encounter Care Teams Market Analyst Relationship Specialty Start Date End Date Samm Serrano MD PCP - General Family Medicine 05/30/12 Tom Gonzalez [address] [place] [address] Primary Staff Physician Cardiology 12/02/18 Andreas Pierre MD [address] [place] [address] Primary Staff Physician Cardiology 04/26/23 Virgil Carrillo MD [address] [place], [place] [phone] Primary Staff Physician Cardiology 10/29/23 Jethro Mendoza MD [address] [place], [place] [phone] Primary Staff Physician Cardiology 12/26/23 Isaías Kinney MD [address] [place], [place] [phone] Primary Staff Physician Cardiology 01/10/24 documented as of this encounter
--- OUTSIDE RECORDS SUMMARY | 2025-04-08 10:57 | XMS_ITS | Encounter Summary ---
Author Organization [facility] Address [address] [place] [address] Care Team Providers Care Manager Renewable Energy Name Role Phone Samm Serrano MD Primary Care Provider +-4 Tom Gonzalez Unavailable [phone] Andreas Pierre MD Unavailable Virgil Carrillo MD Unavailable Jethro Mendoza MD Unavailable Isaías Kinney MD Unavailable [phone] Source Comments In the event this information is protected by the Federal Confidentiality of Alcohol and Drug AbusePatient Records regulations: The Federal rules restrict any use of the information to criminally investigate or prosecute any alcohol or drug abuse patient.[facility] Encounter Details Date Type Department Care Team (Late st Contact Info) Description 02/25/2025 Patient [facility] HB-[address] [place] [address] Tessa Zuniga RPh A Smarter Way to Manage Your Heart Failure Medications Social History Tobacco Use Types Packs/Day Years Used Date Smoking Tobacco: Former Cigarettes 1 10 0 04/28/1972 - 04/28/1982 Pipe Passive Smoke Exposure: Never Smokeless Tobacco: Never Alcohol Use Standard Drinks/Week Comments Not Currently 0 (1 standard drink = 0.6 oz pur e alcohol) rarely [facility] Utilities Answer Date Recorded In the past 12 months has e [employer], gas, oil, or water company threatened to [...] any time in the past 12 m [facility], were you homeless or living in a long-term (including now)? Yes 07/22/2024 Area Deprivation Index Answer Date Rich rded National Score (1-100), lower number is lower ri sk 52 02/05/2024 State Score (1-10), lower number is lower risk 3 02/05/2024 Data from: https://www.neighborhoodatlas.medicine.[facility].edu/. Last address used for calculation [address] 02/05/2024 Sex and Gender [...] 10:00 AM EDT Office Visit Cardiology [address] [place] [address] Isaías Kinney MD [address] [place] [address] DX: Chronic diastolic heart failure 09/20/2025 8:15 AM EST Procedure Cardiology [address] [place] [address] Dx. Atherosclerotic heart disease of [place] coronary artery with other forms of angina pectoris 09/20/2025 9:00 AM EST Appointment Cardiology [address] [place] [address] Dx. Atherosclerotic heart disease of [place] coronary artery with other forms of angina pectoris 09/20/2025 9:45 AM EST Office Visit Cardiology [address] [place] [address] Nj Wei MD [address] [place] [address] Dx. Atherosclerotic heart disease of [place] coronary artery with other forms of angina pectoris documented as of this encounter Goals Goal Patient Goal Type Associated Problems Recent Progress Patient-Stated? Author Blood Pressure < 130/80 Blood Pressure 134/63( 025 3:00 PM EDT) Lidia Soto, ARIES documented as of this encounter Visit Diagnoses Not on filedocumented in this encounter Care Teams Manager Renewable Energy Relationship Specialty Start Date End Date Samm Serrano MD PCP - General Family Medicine 05/30/12 Tom Gonzalez [address] [place] [address] Primary Staff Physician Cardiology 12/02/18 Andreas Pierre MD [address] [place] [address] Primary Staff Physician Cardiology 04/26/23 Virgil Carrillo MD [address] [place] [address] Primary Staff Physician Cardiology 10/29/23 Jethro Mendoza MD [address] [place] [address] Primary Staff Physician Cardiology 12/26/23 Isaías Kinney MD [address] [place] [address] Primary Staff Physician Cardiology 01/10/24 documented as of this encounter
--- OUTSIDE RECORDS SUMMARY | 2025-04-08 10:57 | XMS_ITS | Encounter Summary ---
Author Organization [facility] Address [address] [place] [address] Care Team Providers Care Dip Stand Loader Name Role Phone Samm Serrano MD Primary Care Provider +-4 Tom Gonzalez Unavailable [phone] Andreas Pierre MD Unavailable Virgil Carrillo MD Unavailable Jethro Mendoza MD Unavailable Isaías Kinney MD Unavailable [phone] Source Comments In the event this information is protected by the Federal Confidentiality of Alcohol and Drug AbusePatient Records regulations: The Federal rules restrict any use of the information to criminally investigate or prosecute any alcohol or drug abuse patient.[facility] Reason for Visit * Reason Comments Outside Labs-[facility] Ordered Outside labs lamont baca 02/22/25 from Mitzy Rubin, scanned into FST21 for review Encounter Details Date Type Department Care Team (Late st Contact Info) Description 02/23/2025 Telephone Cardiology [address] [place] [address] Isaías Kinney MD [address] [place] [address] Outside Labs-[facility] Ordered (Outside labs dated 02/22/25 from Mitzy Rubin, scanned into FST21 for review) Social History Tobacco Use Types Packs/Day Years Used Date Smoking Tobacco: Former Cigarettes 1 10 0 04/28/1972 - 04/28/1982 Pipe Passive Smoke Exposure: Never Smokeless Tobacco: Never Alcohol Use Standard Drinks/Week Comments Not Currently 0 (1 standard drink = 0.6 oz pur e alcohol) rarely [facility] Utilities Answer Date Recorded In the [...] lower risk 3 02/05/2024 Data from: https://www.neighborhoodatlas.medicine.[facility].edu/. Last address used for calculation [address] [place] [address] [address] 02/05/2024 Sex and Gender Information [...] Kinney MD Schroll, Shirley; Hvi J3-4 Opd [id number] minutes ago (3:43 PM) Please call Mr. [...] PM EDT .Outside labs dated 02/22/25 from [facility], scanned into FST21 for review documented in this encounter Plan of Treatment Upcoming Encounters Date Type Department Care Team (Latest Contact Info) Description 06/30/2025 10:00 AM EDT Office Visit Cardiology [address] [place] [address] Isaías Kinney MD [address] [place] [address] DX: Chronic diastolic heart failure 09/20/2025 8:15 AM EST Procedure Cardiology [address] [place] [address] Dx. Atherosclerotic heart disease of [place] coronary artery with other forms of angina pectoris 09/20/2025 9:00 AM EST Appointment Cardiology [address] [place] [address] Dx. Atherosclerotic heart disease of [place] coronary artery with other forms of angina pectoris 09/20/2025 9:45 AM EST Office Visit Cardiology [address] [place] [phone] Nj Wei MD [address] [place] [phone] Dx. Atherosclerotic heart disease of [place] coronary artery with other forms of angina pectoris documented as of this encounter Goals Goal Patient Goal Type Associated Problems Recent Progress Patient-Stated? Author Blood Pressure < 130/80 Blood Pressure 134/63( 025 3:00 PM EDT) Lidia Soto RN documented as of this encounter Visit Diagnoses Not on filedocumented in this encounter Care Teams Dip Stand Loader Relationship Specialty Start Date End Date Samm Serrano MD PCP - General Family Medicine 05/30/12 Tom Gonzalez [address] [place] [address] Primary Staff Physician Cardiology 12/02/18 Andreas Pierre MD [address] [place] [address] Primary Staff Physician Cardiology 04/26/23 Virgil Carrillo MD [address] [place] [address] Primary Staff Physician Cardiology 10/29/23 Jethro Mendoza MD [address] [place] [address] Primary Staff Physician Cardiology 12/26/23 Isaías Kinney MD [address] [place] [address] Primary Staff Physician Cardiology 01/10/24 documented as of this encounter
--- OUTSIDE RECORDS SUMMARY | 2025-04-08 10:57 | XMS_ITS | Encounter Summary ---
Author Organization [facility] Address [address] [place] [address] Care Team Providers Care Agricultural Real Estate Agent Name Role Phone Samm Serrano MD Primary [...] or drug abuse patient.[facility] Encounter Details Date Type Department Care Team (Late st Contact Info) Description 01/29/2024 Get Medical Advice Cardiology [address] [place], [place] [phone] Isaías Kinney MD [address] [place] [address] Lab Results Social History Tobacco Use Types [...] lower risk 3 04/02/2023 Data from: https://www.neigh borhoodatlas.medicine.[facility]/. Last address used for calculation [address] [...] of Assessment Author No 03/25/2019 11:00 AM iJa Carlson)ARIES * Do you have serious difficulty [...] 06/30/2025 10:00 AM EDT Office Visit Cardiology [address] [place] [address] Isaías Kinney MD [address] [place] [address] DX: Chronic diastolic heart failure 09/20/2025 8:15 AM EST Procedure Cardiology [address] [place] [address] Dx. Atherosclerotic heart disease of [place] coronary artery with other forms of angina pectoris 09/20/2025 9:00 AM EST Appointment Cardiology [address] [place] [address] Dx. Atherosclerotic heart disease of [place] coronary artery with other forms of angina pectoris 09/20/2025 9:45 AM EST Office Visit Cardiology [address] [place] [address] Nj Wei MD [address] [place] [address] Dx. Atherosclerotic heart disease of [place] coronary artery with other forms of angina pectoris documented as of this encounter Goals Goal Patient Goal Type Associated Problems Recent Progress Patient-Stated? Author Blood Pressure < 130/80 Blood Pressure 134/63( 025 3:00 PM EDT) No Lidia Lo RN documented as of this encounter Visit Diagnoses Not on filedocumented in this encounter Care Teams Agricultural Real Estate Agent Relationship Specialty Start Date End Date Samm Serrano MD PCP - General Family Medicine 05/30/12 Tom Gonzalez [address] [place] [address] Primary Staff Physician Cardiology 12/02/18 Andreas Pierre MD [address] [place] [address] Primary Staff Physician Cardiology 04/26/23 Virgil Carrillo MD [address] [place] [address] Primary Staff Physician Cardiology 10/29/23 Jethro Mendoza MD [address] [place] [address] Primary Staff Physician Cardiology 12/26/23 Isaías Kinney MD [address] [place] [address] Primary Staff Physician Cardiology 01/10/24 documented as of this encounter
--- OUTSIDE RECORDS SUMMARY | 2025-04-08 10:57 | XMS_ITS | Encounter Summary ---
Author Organization [facility] [employer] [facility] tem Address [facility][id number] [address] [place] [address] Care Team Providers Care Livestock Yard Supervisor Name Role Phone Samm Serrano MD Primary Care Provider [phone] Encounter Details Date Type Department Care Team (Late st Contact Info) Description 01/14/2024 Telephone [facility] - Cardiac Rehab [address] [place] [phone] Sheila Finney RN Social History Tobacco Use [...] often do you attend chur ch or christian services? Never 08/17/2021 Do you belong to any clubs o r organizations such as holiness groups, unions, fraternal or athletic groups, or [...] Answer Date Recorded Total Score 0 08/17/2021 [facility] [place] of Occupat ional Health - Occupational Stress [...] documented as of this encounter Care Teams Livestock Yard Supervisor Relationship Specialty Start Date End Date Samm Serrano MD PCP - General Family Medicine 02/26/24 documented as of this encounter
--- OUTSIDE RECORDS SUMMARY | 2025-04-08 10:57 | XMS_ITS | Encounter Summary ---
Author Organization [facility] Address [address] [place] [address] Care Team Providers Care Special Education Teacher Name Role Phone Samm Serrano MD Primary Care Provider +-4 Tom Gonzalez Unavailable [phone] Andreas Pierre MD Unavailable Virgil Carrillo MD Unavailable Jethro Mendoza MD Unavailable Isaías Kinney MD Unavailable [phone] Source Comments In the event this information is protected by the Federal Confidentiality of Alcohol and Drug AbusePatient Records regulations: The Federal rules restrict any use of the information to criminally investigate or prosecute any alcohol or drug abuse patient.[facility] Encounter Details Date Type Department Care Team (Late st Contact Info) Description 10/21/2024 Patient [facility] Main [facility] [place] [address] Provider, [facility] Reminder: Review your MyChart Caregiver(s) Social History Tobacco Use Types Packs/Day Years Used Date Smoking Tobacco: Former Cigarettes 1 10 0 04/28/1972 - 04/28/1982 Pipe Passive Smoke Exposure: Never Smokeless Tobacco: Never Alcohol Use Standard Drinks/Week Comments Not Currently 0 (1 standard drink = 0.6 oz pur e alcohol) rarely [facility] Utilities Answer Date Recorded In the past 12 months has th e [employer], gas, oil, or water [employer] threatened to shut off services in your [...] time in the past 12 [facility], were you homeless or living in a correction (including now)? Yes 07/22/2024 Area Deprivation Index Answer Date Rich rded National Score (1-100), lower number is lower ri sk 52 02/05/2024 State Score (1-10), lower number is lower risk 3 02/05/2024 Data from: https://www.neighborhoodatlas.[facility].edu/. Last address used for calculation [address] 02/05/2024 Sex and [...] 06/30/2025 10:00 AM EDT Office Visit Cardiology [address] [place] [address] Isaías Kinney MD [address] [place] [address] DX: Chronic diastolic heart failure 09/20/2025 8:15 AM EST Procedure Cardiology [address] [place] [address] Dx. Atherosclerotic heart disease of [place] coronary artery with other forms of angina pectoris 09/20/2025 9:00 AM EST Appointment Cardiology [address] [place] [address] Dx. Atherosclerotic heart disease of [place] coronary artery with other forms of angina pectoris 09/20/2025 9:45 AM EST Office Visit Cardiology [address] [place] [address] Nj Wei MD [address] [place] [address] Dx. Atherosclerotic heart disease of [place] coronary artery with other forms of angina pectoris documented as of this encounter Goals Goal Patient Goal Type Associated Problems Recent Progress Patient-Stated? Author Blood Pressure < 130/80 Blood Pressure 134/63( 025 3:00 PM EDT) No Lidia Lo, RAIES documented as of this encounter Visit Diagnoses Not on filedocumented in this encounter Care Teams Special Education Teacher Relationship Specialty Start Date End Date Samm Serrano MD PCP - General Family Medicine 05/30/12 Tom Gonzalez [address] [place] [address] Primary Staff Physician Cardiology 12/02/18 Andreas Pierre MD [address] [place] [address] Primary Staff Physician Cardiology 04/26/23 Virgil Carrillo MD [address] [place] [address] Primary Staff Physician Cardiology 10/29/23 Jethro Mendoza MD [address] [place] [address] Primary Staff Physician Cardiology 12/26/23 Isaías Kinney MD [address] [place] [address] Primary Staff Physician Cardiology 01/10/24 documented as of this encounter
--- OUTSIDE RECORDS SUMMARY | 2025-04-08 10:57 | XMS_ITS | Encounter Summary ---
Author Organization [facility] [employer] [facility] tem Address [facility]-[id number] [address] [place] [address] Care Team Providers Care Director Marketing Name Role Phone Samm Serrano MD Primary Care Provider [phone] Encounter Details Date Type Department Care Team (Late st Contact Info) Description 01/15/2024 Telephone [facility] - Cardiac Rehab [address] [place] [phone] Sheila Finney RN Social History Tobacco Use [...] often do you attend chur ch or pentecostalism services? Never 08/17/2021 Do you [...] Answer Date Recorded Total Score 0 08/17/2021 [facility] [place] of Occupat ional Health - Occupational Stress [...] documented as of this encounter Care Teams Director Marketing Relationship Specialty Start Date End Date Samm Serrano MD PCP - General Family Medicine 02/26/24 documented as of this encounter
[2025-04-08 11:27] LABS: Ammonia <10 umol/L (11-32)
[2025-04-08 11:39] LABS: Alanine Aminotransferase 23 U/L (16-63); Albumin Globulin Ratio 0.7; Albumin Level 3.0 g/dL (3.4-5.0); Alkaline Phosphatase 154 U/L (46-116); Aspartate Amino Transferase 29 U/L (15-37); Globulin 4.2 g/dL; Total Protein 7.2 g/dL (6.4-8.2)
== END 2025-04-08 10:48 | disposition home or self-care (01) ==
LOC: LAB 10:50
PROVIDERS: PCP Family Medicine; Visit Provider Nurse Practitioner Family
DX: R74.8 Abnormal levels of other serum enzymes (principal); N18.32 Chronic kidney disease, stage 3b
CPT/HCPCS: 36415; 80076; 82140; 84100

== ENCOUNTER 2025-04-14 16:57 | Outpatient (OUT) | payer MEDICARE, OTHER, SELFPAY ==
--- NOTE | 2025-04-14 17:08 | XR_ITS ---
The [address] [address] Patient Name: LANDEN ROTH MRN: [id number] date: 1940 Sex: M Assigned Patient Location: [facility] Current Patient Location: [facility] Accession/Order Number: [id number] Exam Date: 04/14/2025 17:51 Report Date: 04/14/2025 17:52 At the request of: JASKARAN ALVAREZ APRN Procedure: XR chest 2V PA AND LATERAL CHEST: CLINICAL HISTORY: Edema COMPARISON: 03/04/2025 FINDINGS: Sternotomy wires. Left-sided pacemaker/ICD device. A large cardiomediastinal silhouette. Minimal interstitial thickening throughout both lungs. Likely mild interstitial edema and vascular congestion. Left-sided pleural-parenchymal opacity likely moderate effusion. Trace right-sided effusion. No pneumothorax. XR/XR chest 2V IMPRESSION: Cardiomegaly with likely interstitial edema and CHF. Left-sided effusion and associated airspace disease, favor atelectasis. Impression dictated by: Jose Fisher M.D. 04/14/2025 5:52 PM Dictation Location: [place] [address] Electronically authenticated by: [id number] Y Date: 04/14/2025 17:52
== END 2025-04-14 16:58 | disposition home or self-care (01) ==
PROVIDERS: PCP Family Medicine; Visit Provider Nurse Practitioner Family
DX: R60.9 Edema, unspecified (principal); I51.7 Cardiomegaly
CPT/HCPCS: 71046

== ENCOUNTER 2025-04-22 13:37 | Outpatient (OUT) | payer MEDICARE, OTHER, SELFPAY ==
--- NOTE | 2025-04-22 13:41 | US_ITS ---
The [address] [address] Patient Name: LANDEN ROTH MRN: [id number] date: 1940 Sex: M Assigned Patient Location: Current Patient Location: [facility] Accession/Order Number: [id number] Exam Date: 04/22/2025 14:58 Report Date: 04/22/2025 15:00 At the request of: FRANCISCA THOMPSON MD Procedure: US renal bladder BILATERAL RENAL AND BLADDER ULTRASOUND CLINICAL HISTORY: Hematuria COMPARISON: None FINDINGS: Estimation of renal size is approximately 9.1 cm on the right and 8.6 cm on the left. 3 mm stone right kidney. 1.2 cm cyst left kidney. The urinary bladder is partially distended with a volume of 148 ml. No shadowing stone or focal lesion. No significant postvoid residual. Small amount of ascites. US/US renal bladder IMPRESSION: RIGHT NEPHROLITHIASIS. NO HYDRONEPHROSIS TO SUGGEST OBSTRUCTION. SMALL AMOUNT OF ASCITES. Impression dictated by: Vicente Sanchez Jr., D.O. 04/22/2025 3:00 PM Dictation Location: [place] [address] Electronically authenticated by: [id number] Y Date: 04/22/2025 15:00
== END 2025-04-22 13:38 | disposition home or self-care (01) ==
LOC: US 13:37
PROVIDERS: PCP Family Medicine; Visit Provider Family Medicine
DX: R31.9 Hematuria, unspecified (principal); R60.9 Edema, unspecified; N20.0 Calculus of kidney
CPT/HCPCS: 71046; 76770

== ENCOUNTER 2025-04-22 13:38 | Outpatient (OUT) | payer MEDICARE, OTHER, SELFPAY ==
--- OUTSIDE RECORDS SUMMARY | 2024-10-08 10:45 | XMS_ITS ---
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 SDF. * Medical History: Objective: * Vitals: Assessment: Plan: * Treatment: * Billing Information: * Visit Code: * Procedure Codes: * Electronic signature of Helen Stokes DDS on 04/22/2025 at 01:41 PM EDT Sign off status: Pending * Provider: Marisa Stokes DDS Date: 10/08/2024 Generated for Tripi ng/Falaurel/eTransmitting on: 0 04/22/2025 01:41 PM EDT
--- OUTSIDE RECORDS SUMMARY | 2024-11-25 14:24 | XMS_ITS ---
Author Organization Corporate Office Address [address] [place] [address] [address] [place] [address] Care Team Providers Care Scalder Name Role Phone Maggie YOUNG, Samm Primary Care Provider Laila Juan DO Unavailable REASON FOR VISIT new labs Encounters Encounter Location Date Provider Diagnosis [facility] [address] [place] [address] 11/25/2024 Laila Marina Plan Of Treatment Next Appt Details Provider Name:Laila quintana, 08/03/2025 03:00:00 PM, [address], [place], [address], Progress Notes * IRA PramoddgDOB: 2 (84 yo M)Acc No.[id number]:11/25/2024 Patient: José Miguel BRIGGS :1940 A ge:84 Y S ex:Male Address:[address] [place] [address] [address], [place], [address] * true * Date: Generated for Printi ng/Faxing/eTransmitting on: 0 04/22/2025 01:46 PM EDT
--- OUTSIDE RECORDS SUMMARY | 2025-01-20 13:44 | XMS_ITS ---
Author Organization Corporate Office Address [address] [place] [address] [address] [place] [address] Care Team Providers Care Staff Home Therapy Rn Name Role Phone Samm Serrano MD Primary Care Provider Laila Juan DO Unavailable REASON FOR VISIT results Encounters Encounter Location Date Provider Diagnosis [facility] Endocr[facility]ology [address] [place] [address] 01/20/2025 Laila Marina Plan Of Treatment Next Appt Details Provider Name:Laila quintana, 08/03/2025 03:00:00 PM, [address], [place], [address], Progress Notes * José Miguel ROTHDOB: 2 (84 yo M)Acc No.[id number]:01/20/2025 Patient: José Miguel BRIGGS :1940 A ge:84 Y S ex:Male Address:[address] [place] [address] [address], [place], [address] * true * Date: Generated for Printi ng/Faxing/eTransmitting on: 0 04/22/2025 01:49 PM EDT
--- OUTSIDE RECORDS SUMMARY | 2025-01-26 12:57 | XMS_ITS ---
Author Organization Corporate Office Address [address] [place] [address] [address] [place] [address] Care Team Providers Care Nnps Name Role Phone Maggie YOUNG, Samm Primary Care Provider Laila Juan DO Unavailable [phone] REASON FOR VISIT Update Demographics - Personal Info Encounters Encounter Location Date Provider Diagnosis [facility] Endocrinology [address] [place] [address] 01/26/2025 Laila Marina Plan Of Treatment Next Appt Details Provider Name:Laila quintana, 08/03/2025 03:00:00 PM, [address], [place], [address], Progress Notes * IRAJosé MiguelDOB: 2 (84 yo M)Acc No.[id number]:01/26/2025 Patient: José Miguel BRIGGS :1940 A ge:84 Y S ex:Male Address:[address] [place] [address] [address], [place], [address] * true * Date: Generated for Printi ng/Faxing/eTransmitting on: 0 04/22/2025 01:41 PM EDT
--- OUTSIDE RECORDS SUMMARY | 2025-04-08 09:20 | XMS_ITS | Encounter Summary ---
Author Organization [facility] Address [address] [place] [address] Care Team Providers Care Dry Goods Inspector Name Role Phone Samm Serrano MD Primary Care Provider [phone] Reason for Visit * Reason Comments Congestive Heart Failure Coronary Artery Disease Hypertension Atrial Fibrillation Hyperlipidemia Encounter Details Date Type Department Care Team (Late st Contact Info) Description 04/08/2025 9:20 AM EDT Office Visit [facility] [address] [place] [address] Conchita Rivera, CUSTOM HARVESTER [address] [place] [id number] Stage 3b chronic kidney disease (CMS/HCC) (Primary Dx); Chronic systolic heart failure (CMS/HCC); Abnormal liver enzymes; Cardiomyopathy, ischemic; ICD (implantable cardioverter-defibril lator) discharge; Coronary artery disease involving coronary bypass graft of [place] heart without angina pectoris; S/P CABG (coronary artery bypass graft); Paroxysmal atrial fibrillation (CMS/HCC); Nonrheumatic mitral valve regurgitation; History of mitral valve repair Social History Tobacco Use Types Packs/Day Years Used Date Smoking Tobacco: Former Cigarettes Smokeless Tobacco: Never Alcohol Use Standard Drinks/Week Comments Not Currently 0 (1 standard drink = 0.6 oz pur e alcohol) [facility] Utilities Answer Date Recorded In the past 12 months has [email or web address] gas, oil, or water [employer] threatened to shut off services in your [...] any time in the past 12 m [facility], were you homeless or living in a assisted (including now)? No 03/05/2025 Hunger Vital Sign [...] weekly follow-up labs with Dr. Serrano - LATISHA/BNP documented in this encounter Progress Notes * Radha Galindo MA - 04/08/2025 9:20 AM EDT Patient is here today for a follow up [facility]. Patient had Bumex infusion last week. Patient denies chest pain, SOB, palpitations. Patient states his leg swelling is way down today. Recent labs done by home health nurse. Patients daughter has questions about his itching and his weight gain. Per daughter patient doesn't eat meals he eats convenient foods. Patient states he does nap during the day. Review of Systems Cardiovascular: Positive for leg swelling (mild). * Conchita Rivera CNP - 04/08/2025 9:20 AM EDT Images from the original note were not included. [place] [facility] - [facility] Subjective José Miguel Antonio is a 85 y.o. year old male patient being seen for Congestive Heart Failure, Coronary Artery Disease, Hypertension, Atrial Fibrillation, and Hyperlipidemia Problem List[1] HPI Last HPI per Dr. Kendall: Patient used to follow with Dr. Crain, last visit with him was November 2023 after which it seems that the patient was following in [facility]. He was admitted recently transferred from [facility] to [facility] on 03/06/2025 with acute on chronic heart failure. He has past medical history of HFrEF, CKD, CAD, s/p CABG in 2011, ischemic cardiomyopathy, s/p AICDin 2018, history of V. tach for which he was on mexiletine severe MR s/p Mitral valve clip (02/19/24 - with residual moderate MR), persistent atrial fibrillation on Eliquis, CVA s/p tPA (2020), LV throm bus,COPD, CKD III, carotid stenosis s/p right CEA (2012) and left carotid stenting (03/09/24), hypothyroidism, hypertension and hyperlipidemia. Prior to the most recent admissions the patient was in [facility] and he was found to have A-fib and he had cardioversion but after he came back he went to [facility] because of heart failure symptoms including extreme fatigue, weakness, shortness of breath and weight gain. He was started on Bumex IV infusion in [place] without significant urine output therefore he was transferred to [facility]. He was started on milrinone in addition to Bumex drip. After he was taken off of the IV infusion he was switched to Bumex 2 mg twice daily orally. He was continued on Toprol-XL at small dose 12.5 mg daily. He was followed also by nephrology team while he was there. He was discharged on 03/16/20 which was yesterday on Eliquis 2.5 mg twice daily, Bumex 2 mg twice daily, Toprol-XL 12.5 mg daily, mexiletine 150 mg twice daily, potassium 20 mEq daily. Patient states that today he feels good. He walks from the parking lot to the office without any shortness of breath. He denies any chest pain or dizziness or palpitations. His legs edema is much better UPDATE 04/08/2025: He overall states he feels well. Pt has had some weight gain he feels this has been gradual. Previously he was weighing 170s. Recently he has been averaging 160s. Pt does not cook. He notes eating frozen meals or canned soups periodically. Maybe every other weekhe will eat [employer]. We had an extensive discussion that he should avoid these types of foods. He had a bumex infusion last week. He gets 3mg IV infusions as needed. His home health care nurse called the other day saying pt had pitting edema up to his thighs. This has resolved today. He denies CP, orthopnea, PND, dizziness/LH, palpitations. One daughter and 2 other daughters were present during visit today. They had concerns about his cognition, asking for follow up liver function and ammonia levels. Pt c/o itchy skin, he won't be able to get into interactive media marketing director for a few months. Asked to check follow-up phosphorus level. Medical History[2] Surgical History[3] Family History[4] Social History[5] Allergies Allergies[6] Medications Current Medications[7] Objective Visit Vitals BP 113/68 (BP Location: Right arm, Patient Position: Sitting) Pulse 73 Ht 1.829 m (6') Wt 72.6 kg (160 lb) SpO2 96% BMI 21.70 kg/m?? Smoking Status Former BSA 1.92 m?? Physical exam: GENERAL: alert and oriented x3, well developed, in no acute distress. HEAD: atraumatic, normocephalic. EYES: VINCENT, EOMI. NECK: trachea midline, no JVD present, no carotid bruits present. CARDIAC: S1, S2 present. RRR. No murmur, rubs, or gallops. RESPIRATORY: CTAB, no increased effort of breathing, no rales, rhonchi, or wheezing. ABDOMEN: soft, nontender, nondistended. EXTREMITIES: Trace legs edema bilaterally, bilateral compression stockings in place NEURO: strength/sensation equal and symmetric in bilateral upper and lower extremities. PSYCH: appropriate mood, affect, and judgement. Recent Labs Lab Results Component Value Date GLUCOSE 89 03/21/2025 CALCIUM 9.3 03/21/2025 NA 134 (L) 03/21/2025 K 4.5 03/21/2025 CO2 25 03/21/2025 CL 102 03/21/2025 BUN 64 (H) 03/21/2025 CREATININE 1.98 (H) 03/21/2025 Lab Results Component Value Date WBC 4.12 03/21/2025 HGB 12.2 (L) 03/21/2025 HCT 39.6 03/21/2025 MCV 97.8 03/21/2025 PLT 196 03/21/2025 Lab Results Component Value Date CHOL 123 09/28/2023 CHOL 141 05/17/2022 Lab Results Component Value Date HDL 51 09/28/2023 HDL 22 (L) 05/17/2022 Lab Results Component Value Date LDLCALC 61 09/28/2023 Lab Results Component Value Date TRIG 56 09/28/2023 TRIG 122 05/17/2022 No components found for: CHOLHDL Lab Results Component Value Date ALT 14 03/09/2025 AST 29 03/09/2025 ALKPHOS 129 (H) 03/09/2025 BILITOT 1.4 (H) 03/09/2025 Lab Results Component Value Date TSH 1.69 03/05/2025 Component Ref Range & Units (hover) 1 mo ago 5 mo ago 6 mo ago 1 yr ago 2 yr ago 6 yr ago BNP 4,437 High 4,304 High 1,142 High 1,747 High 584 High CM 1,734 High 04/06/2025 Cr 2.04, BUN 47, K 4.9, Na 134 eGFR 32 BNP 3367 03/29/2025 Cr 1.95, BUN 72, Na 134, K 4.1, eGFR 34 BNP 2350 Blood testing 11/29/2023: BUN 65, Cr 2.55, K 3.7, eGFR 24, Na 134. Hb 14.2. Blood testing 11/13/2023: Potassium 3.7, BUN 49, creatinine 2.42, EGFR 26. NT proBNP 20,362. Blood testing 10/21/2023: Potassium 4.0, BUN 41, creatinine 2.11, EGFR 30. Blood testing 10/09/2023: Hemoglobin 13.2, platelets 179, potassium 4.3, BUN 35, creatinine 2.16, EGFR 29, LFTs normal, high-sensitivity troponin 932.7, NT proBNP 14,091. Blood testing 09/26/2023: Hemoglobin 11.8, platelets 162, potassium 5.3, BUN 40, creatinine 1.03, EGFR more than 60, high-sensitivity troponin 1280.3, NT proBNP 16,903. Imaging and other tests EKG: Encounter Date: 03/05/25 ECG 12 lead Result Value Ventricular Rate 79 QRS DURATION 126 QT Interval 410 QTC CALCULATION(BAZETT) 470 R-Alton -11 T Wave Alton 188 Impression Wide QRS rhythm with occasional Premature ventricular complexes Non-specific intra-ventricular conduction block Minimal voltage criteria for LVH, may be normal variant ( Robert product ) Cannot rule out Septal infarct , age undetermined Abnormal ECG When compared with ECG of 06-MAR-2025 09:06, (unconfirmed) Wide QRS rhythm has replaced Atrial flutter Confirmed by Brent ANN, NELLA Thayer ([id number]) on 03/08/2025 5:08:46 PM ECG 11/22/2023: Ectopic atrial rhythm with frequent, Premature ventricular complexes Intra-ventricular conduction delay, Minimal voltage criteria for LVH, may be normal variant (Robert product), Nonspecific ST and T wave abnormality Abnormal ECG When compared with ECG of 19-NOV-2023 17:23, Ectopic atrial rhythm has replaced Sinus rhythm Nonspecific T wave abnormality now evident in Inferior lead Echo: 03/06/2025 Left Ventricle: The left ventricle is severely enlarged. Global left ventricular systolic function is severely reduced. EF range is estimated at 5 % -10 %. Diffuse global hypokinesis. Left Ventricular Measurements LVEF, MOD4: 4 %. Right Ventricle: The right ventricle is enlarged. Right ventricular systolic function appears reduced. A pacemaker wire is seen in the right atrium and right ventricle.Doppler studies suggest severely elevated right sided pressures. Left Atrium: The left atrium is moderately enlarged. Mitral Valve: MitraClip is seen. Moderate mitral regurgitation. The mitral regurgitant jet is eccentric and directed posteriorly. Aortic Valve: Trivial aortic valve regurgitation. Tr icuspid Valve: Moderate to severe tricuspid regurgitation. Pericardium: No pericardial effusion. A pleural effusion is seen. Overall Conclusions: Due to suboptimal imaging Lumason contrast was administered for opacification and better delineation of endocardial borders. Transesophageal echocardiogram 11/19/2023: Left Ventricle: Global left ventricular systolic function [...] atherosclerotic plaque is seen in the aorta. Echocardiogram 05/17/2022: Left Ventricle: The left ventricle is severely enlarged. Global left ventricular systolic function is severely reduced. EF range is estimated at 10 %-15 %. Left ventricular wall thickness is normal. The septum is abnormal in its motion; maybe due to pacemaker. No thrombus is identified in the left ventricle. Right Ventricle: The right ventricle is normal in size. Right ventricular systolic function appears normal. Unable to assess right sided pressures due to lack of measurable tricuspid regurgitation. Left Atrium: The left atrium is moderately enlarged. Mitral Valve: Moderate mitral regurgitation. Overall Conclusions: Due to suboptimal imaging, Lumason contrast was administered for better delineation of the left ventricular apex Poor Lumason injections Stress test: Cardiac cath: Right heart catheterization 11/19/2023: Impression/Findings: Severe elevation of left filling pressures. Large V waves noted on the pulmonary capillary wedge pressure tracing consistent with the patient's significant mitral regurgitation. Mild elevation of right filling pressures. severe pulmonary hypertension. Reduced cardiac output and cardiac index. Controlled systemic hypertension. Findings are consistent with combined pre- and post-capillary pulmonary hypertension. Plan: The patient will be admitted to the hospital for management of decompensated systolic heart failure. Management will include diuretic therapy and possible addition of inotropic therapy given his worsening renal function and decompensation. Guideline directed medical therapy for heart failure. The patient should undergo a transesophageal echocardiogram for assessment of his mitral regurgitation. He might be a candidate for MitraClip procedure given his secondary of mitral regurgitation. Cardiac catheterization 05/18/2022: 1. Severe, 3-vessel [place] coronary artery disease with stump occlusions of the distal left main and ostial right coronary arteries. 2. Two bypass grafts patent; left internal mammary artery graft tothe left anterior descending and saphenous vein graft to the obtuse marginal. 3. Robust [id number] collaterals. 4. Patent left subclavian artery. Event Monitor: Cardiac MRI: CX ray: Assessment/Plan Chronic systolic heart failure Severe ischemic cardiomyopathy S/p ICD with recent admission with acute exacerbation, ejection fraction 5 to 10% on echo 03/06/2025 He is on Toprol-XL 12.5 mg daily, Bumex 2 mg twice daily, amiloride 5 mg daily and potassium 20 mEqdaily Based on his recent labs, will have him reduce potassium to 10 mEq daily. We discussed importance of heart failure friendly diet. He notes that he wants to have a good quality of life. Educated pt he should take an extra tablet of bumex in the AM for any signs of fluid retention - hemay do this for 2-3 days and if sx's don't improve or worsen, he should come get an IV bumex infusion at the infusion center. He states understanding. Continue weekly BMP/BNP per Dr. Serrano Coronary artery disease, status post CABG, Denies CP, dyspnea stable Continue BB and Eliquis History of severe mitral regurgitation, status post mitral clip 2024, he has residual moderate mitral regurgitation on last echo 03/06/2024 Severe pulmonary hypertension Moderate to severe tricuspid regurgitation Paroxysmal A-fib, He is on Toprol-XL and Eliquis History of ventricular tachycardia, on mexiletine History of left ventricular thrombus, on Eliquis, it was not noted on most recent echo 03/06/2024 History of stroke status post tPA, status post right carotid endarterectomy and left carotid stent placement Carotid stenosis Hyperlipidemia Chronic kidney disease, he follows with nephrology. Advised he arrange for a follow-up appt. Hypothyroidism COPD Follow-up in 1 month or sooner if needed. LEXI Silva [facility] Cardiovascular Medicine I spent 45 minutes of total time on the day of the visit. This time was spent preparing for the visit, obtaining and reviewing any outside history/data, taking a history, performing an exam/evaluation, counseling and educating the patient/family about the diagnosis and plan, performing medical decision making, referring to and communicating with other health care referrals, independently interpreting results and documenting in the EMR, and coordinating care. Please see the additional documentation in this note for specific details. [1] Patient Active Problem List Diagnosis Coronary artery disease involving coronary bypass graft of [place] heart Chronic systolic heart failure ([facility]/HCC) NSVT (nonsustained ventricular tachycardia) ([facility]/HCC) Old [place] (myocardial infarction) Mitral valve insufficiency Claudication, intermittent Carotid stenosis, asymptomatic, left History of ischemic stroke Primary hypertension Hyperlipidemia Hypothyroidism, unspecified Major depressive disorder, recurrent, unspecified Prostate cancer (CMS/HCC) PVD (peripheral vascular disease) S/P CABG (coronary artery bypass graft) Cerebrovascular accident (CVA) due to embolism of right middle cerebral artery ([facility]/HCC) 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[facility]) Chronic kidney disease, unspecified Erectile dysfunction due to arterial insufficiency Iron deficiency anemia, unspecified Occlusion and stenosis of carotid artery without mention of cerebral infarction Personal history of malignant neoplasm of prostate Personal history of transient ischemic attack (TIA), and cerebral infarction without residual deficits Preop testing Presence of automatic (implantable) cardiac defibrillator Sweating Syncope Cardiorenal syndrome Chronic obstructive pulmonary disease, unspecified (CMS/HCC) Unspecified severe protein-calorie malnutrition Hypokalemia Stage 3b chronic kidney disease ([facility]) Amaurosis fugax Dyspnea, unspecified TIA (transient ischemic attack) Hyperkalemia Other ascites A-fib ([facility]) COPD (chronic obstructive pulmonary disease) ([facility]) Peripheral artery disease Acute blood loss anemia Anemia of chronic disease At risk for delirium Cardiomyopathy, ischemic Dyspepsia Frequent PVCs Gastro-esophageal reflux disease without esophagitis Gastrointestinal hemorrhage History of mitral valve repair Hematochezia Generalized weakness 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 disease, or unspecified chronic kidney disease ([facility]/HCC) Hypervolemia Hyponatremia ICD (implantable cardioverter-defibrillator) discharge LV (left ventricular) mural thrombus Metabolic acidosis Palliative care by specialist Parageusia Pleural effusion on left Presence of cardiac and vascular implant and graft, unspecified Spinal stenosis, lumbar region without neurogenic claudication Cerebrovascular accident (CVA) due to occlusion of precerebral artery (CMS/HCC) Abdominal aortic aneurysm, without rupture, unspecified Alcoholic cirrhosis ([facility]) Atherosclerosis of coronary artery without angina pectoris Autoimmune thyroiditis Chest pain 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 Interstitial lung disease (CMS/HCC) Peripheral venous insufficiency Portal hypertension ([facility]/HCC) Presence of aortocoronary bypass graft Rheumatic tricuspid insufficiency Vitamin D deficiency [2] Past Medical History: Diagnosis Date AICD (automatic cardioverter/defibrillator) present CKD (chronic kidney disease) stage 3, GFR 30-59 ml/min (CMS/HCC) Disease of thyroid gland Heart failure with reduced ejection fraction (CMS/HCC) Hypertension [3] Past Surgical History: Procedure Laterality Date CARDIAC CATHETERIZATION CAROTID ENDARTERECTOMY CORONARY ARTERY BYPASS GRAFT [4] Family History Problem Relation Name Age of Onset Coronary artery disease Father Coronary artery disease Brother [5] Social History Tobacco Use Smoking status: Former Types: Cigarettes Smokeless tobacco: Never Substance Use Topics Alcohol use: Not Currently Drug use: Never [6] Allergies Allergen Reactions Amiodarone Other Rash and severe transaminitis Penicillins Unknown Adhesive Rash Latex Hives, Rash and Unknown [7] Current Outpatient Medications: aMILoride (Midamor) 5 mg tablet, Take 1 tablet (5 mg) by mouth in the morning., Disp: 60 tablet, Rfl: 1 apixaban (Eliquis) 2.5 mg tablet, Take 5 mg by mouth two times daily., Disp: , Rfl: bumetanide (Bumex) 2 mg tablet, Take 1 tablet (2 mg) by mouth every 12 (twelve) hours for 198 doses., Disp: , Rfl: levothyroxine (Synthroid, Levoxyl) 100 mcg tablet, Take 100 mcg by mouth before breakfast., Disp: ,Rfl: liothyronine (Cytomel) 5 mcg tablet, Take 1 tablet (5 mcg) by mouth in the morning., Disp: 30 tablet, Rfl: 0 metoprolol succinate XL (Toprol-XL) 25 mg 24 hr tablet, Take 0.5 tablets (12.5 mg) by mouth in the morning for 89 doses. Do not crush or chew., Disp: , Rfl: mexiletine (Mexitil) 150 mg capsule, Take 1 capsule (150 mg) by mouth two times daily for 192 doses., Disp: , Rfl: ondansetron (Zofran) 4 mg tablet, Take 8 mg by mouth if needed., Disp: , Rfl: potassium chloride CR (Klor-Con M20) 20 mEq ER tablet, Take 1 tablet (20 mEq) by mouth in the morning. Do not crush or chew., Disp: 60 tablet, Rfl: 1 thiamine (Vitamin B-1) 100 mg tablet, Take 100 mg by mouth in the morning., Disp: , Rfl: documented in this encounter Plan of Treatment Upcoming Encounters Date Type Department Care Team (Late st Contact Info) Description 04/26/2025 2:30 PM EDT Office Visit [facility] [address] [place] [phone] Ozzie Crain MD [address] [facility] [address] [facility] [place] [phone] Scheduled Orders Name Type Priority Associated Diagnoses [...] Chronic systolic heart failure Abnormal liver enzymes Cardiomyopathy, ischemic Other specified forms of chronic ischemic heart disease ICD (implantable cardioverter-defibrillator) discharge Coronary artery disease involving coronary bypass graft of [place] heart without angina pectoris S/P CABG (coronary artery bypass graft) Postsurgical aortocoronary bypass status Paroxysmal atrial fibrillation (CMS/HCC) Atrial fibrillation Nonrheumatic mitral valve regurgitation History of mitral valve repair documented in this encounter Care Teams Dry Goods Inspector Relationship Specialty Start Date End Date Samm Serrano MD [address] [facility] [address] [address] PCP - General 05/16/22 documented as of this encounter
--- OUTSIDE RECORDS SUMMARY | 2025-04-21 05:58 | XMS_ITS ---
Author Organization The [facility] in [place] Address [address] [place] [address] Care Team Providers Care Teletypist Name Role Phone Sesar Serrano Primary Care Provider Encounters Encounter Location Date Provider Diagnosis [facility] [address] [place] [address] 04/21/2025 Sesar Serrano Plan Of Treatment No Information Progress Notes * José Miguel ROTH LDOB: [birth year] (85 yo M)Acc No.[id number]:04/21/2025 Patient: Nona SAEZ José Miguel Juarez :1940 A ge:85 Y S ex:Male Address:[address] [place] [address], [id number] * true * Date: Generated for Meng palacio/Kayode/eTransmitting on: 0 04/22/2025 01:43 PM EDT
--- OUTSIDE RECORDS SUMMARY | 2025-04-21 06:00 | XMS_ITS ---
Author Organization The [facility] in [place] Address [address] [place] [address] Care Team Providers Care Sagger Maker Name Role Phone Maggie Sesar Primary Care Provider REASON FOR VISIT Lab Results- Medications Medication SIG (Take, Route, Frequency, Duration) Notes Start Date End Date Status Liothyronine Sodium 5 MCG 2 tablets on a n empty stomach Orally Once a day for 90 days Active Encounters Encounter Location Date Provider Diagnosis [facility] [address] [place] [address] 04/21/2025 Sesar Serrano Plan Of Treatment Medication Medication Name Sig Start Date Stop Date Notes Liothyronine Sodium 5 MCG 2 tablets on a n empty stomach Orally Once a day for 90 days Progress Notes * José Miguel ROTH LDOB: [birth year] (85 yo M)Acc No.[id number]:04/21/2025 Patient: Nona José Miguel SAEZ :1940 A ge:85 Y S ex:Male Address:[address] [place] [address], [phone] * Refills Refill Liothyronine Sodium Tablet, 5 MCG, Orally, 180 Tablet, 2 tablets on an empty stomach, Once a day, 90 days, Refills=3 * true * Date: Generated for Meng palacio/Fatommyg/eTransmitting on: 0 04/22/2025 01:46 PM EDT
--- OUTSIDE RECORDS SUMMARY | 2025-04-21 09:05 | XMS_ITS ---
Author Organization The [facility] in [place] Address [address] [place] [address] Care Team Providers Care Behavioral Consultant Name Role Phone Sesar Serrano Primary Care Provider [phone] REASON FOR VISIT Update Encounters Encounter Location Date Provider Diagnosis [facility] [address] [place] [address] 04/21/2025 Sesar Serrano Plan Of Treatment No Information Progress Notes * José Miguel ROTH LDOB: [birth year] (85 yo M)Acc No.[id number]:04/21/2025 Patient: Nona SAEZ José Miguel Juarez :1940 A ge:85 Y S ex:Male Address:[address] [place] [address], [phone] * true * Date: Generated for Meng palacio/Kayode/eTransmitting on: 0 04/22/2025 01:48 PM EDT
--- OUTSIDE RECORDS SUMMARY | 2025-04-22 13:40 | XMS_ITS | Encounter Summary ---
Author Organization [facility] Address [address] [place] [address] Care Team Providers Care Epic Interface Analyst Name Role Phone Samm Serrano MD Primary Care Provider +-4 Tom Gonzalez Unavailable [phone] Andreas Pierre MD Unavailable Virgil Carrillo MD Unavailable Jethro Mendoza MD Unavailable Isaías Kinney MD Unavailable [phone] Source Comments In the event this information is protected by the Federal Confidentiality of Alcohol and Drug AbusePatient Records regulations: The Federal rules restrict any use of the information to criminally investigate or prosecute any alcohol or drug abuse patient.[facility] Encounter Details Date Type Department Care Team (Late st Contact Info) Description 11/28/2022 Patient Msg Vascular Surg Dept [address] [place] [address] John Jefferson MD [address] [place] [address] Appointment Cancellation Request Social History Tobacco Use [...] N ot on file 10/01/2022 Data from: https://www.neighborhoodatlas.[facility].edu/. Last address used for [...] 06/30/2025 10:00 AM EDT Office Visit Cardiology [address] [place] [address] Isaías Kinney MD [address] [place] [address] DX: Chronic diastolic heart failure 09/20/2025 8:15 AM EST Procedure Cardiology [address] [place] [address] Dx. Atherosclerotic heart disease of [place] coronary artery with other forms of angina pectoris 09/20/2025 9:00 AM EST Appointment Cardiology [address] [place] [address] Dx. Atherosclerotic heart disease of [place] coronary artery with other forms of angina pectoris 09/20/2025 9:45 AM EST Office Visit Cardiology [address] [place] [address] Nj Wei MD [address] [place] [address] Dx. Atherosclerotic heart disease of [place] coronary artery with other forms of angina pectoris documented as of this encounter Visit Diagnoses Not on filedocumented in this encounter Care Teams Epic Interface Analyst Relationship Specialty Start Date End Date Samm Serrano MD PCP - General Family Medicine 9/14/12 Tom Gonzalez [address] [place] [address] Primary Staff Physician Cardiology 12/02/18 Andreas Pierre MD [address] [place] [address] Primary Staff Physician Cardiology 04/26/23 Virgil Carrillo MD [address] [place] [address] Primary Staff Physician Cardiology 10/29/23 Jethro Mendoza MD [address] [place] [address] Primary Staff Physician Cardiology 12/26/23 Isaías Kinney MD [address] [place] [address] Primary Staff Physician Cardiology 01/10/24 documented as of this encounter
--- OUTSIDE RECORDS SUMMARY | 2025-04-22 13:40 | XMS_ITS | Encounter Summary ---
Author Organization [facility] Address [address] [place] [address] Care Team Providers Care Specialized Developer Name Role Phone Samm Serrano MD Primary Care Provider +-4 Tom Gonzalez Unavailable [phone] Andreas Pierre MD Unavailable Virgil Carrillo MD Unavailable Jethro Mendoza MD Unavailable Isaías Kinney MD Unavailable [phone] Source Comments In the event this information is protected by the Federal Confidentiality of Alcohol and Drug AbusePatient Records regulations: The Federal rules restrict any use of the information to criminally investigate or prosecute any alcohol or drug abuse patient.[facility] Encounter Details Date Type Department Care Team (Late st Contact Info) Description 06/13/2022 Patient Msg Cardiology [address] [place] [address] Andreas Pierre MD [address] [place] [address] Lab results Social History Tobacco Use Types [...] N ot on file 04/26/2022 Data from: https://www.neighborhoodatlas.[facility]/. Last address used for calculation [...] 10:00 AM EDT Office Visit Cardiology [address] [place] [phone] Isaías Kinney MD [address] [place] [phone] DX: Chronic diastolic heart failure 09/20/2025 8:15 AM EST Procedure Cardiology [address] [place], [place] [phone] Dx. Atherosclerotic heart disease of [place] coronary artery with other forms of angina pectoris 09/20/2025 9:00 AM EST Appointment Cardiology [address] [place], [place] [phone] Dx. Atherosclerotic heart disease of [place] coronary artery with other forms of angina pectoris 09/20/2025 9:45 AM EST Office Visit Cardiology [address] [place] [phone] Nj Wei MD [address] [place] [phone] Dx. Atherosclerotic heart disease of [place] coronary artery with other forms of angina pectoris documented as of this encounter Visit Diagnoses Not on filedocumented in this encounter Care Teams Specialized Developer Relationship Specialty Start Date End Date Samm Serrano MD PCP - General Family Medicine 05/30/12 Tom Gonzalez [address] [place] [address] Primary Staff Physician Cardiology 12/02/18 Andreas Pierre MD [address] [place] [address] Primary Staff Physician Cardiology 04/26/23 Virgil Carrillo MD [address] [place] [phone] Primary Staff Physician Cardiology 10/29/23 Jethro Mendoza MD [address] [place] [address] Primary Staff Physician Cardiology 12/26/23 Isaías Kinney MD [address] [place] [phone] Primary Staff Physician Cardiology 01/10/24 documented as of this encounter
--- OUTSIDE RECORDS SUMMARY | 2025-04-22 13:40 | XMS_ITS | Encounter Summary ---
Author Organization [facility] Address [address] [place] [address] Care Team Providers Care Family Member Caretaker Name Role Phone Samm Serrano MD Primary Care Provider +-4 Tom Gonzalez Unavailable [phone] Andreas Pierre MD Unavailable Virgil Carrillo MD Unavailable Jethro Mendoza MD Unavailable Isaías Kinney MD Unavailable [phone] Source Comments In the event this information is protected by the Federal Confidentiality of Alcohol and Drug AbusePatient Records regulations: The Federal rules restrict any use of the information to criminally investigate or prosecute any alcohol or drug abuse patient.[facility] Encounter Details Date Type Department Care Team (Late st Contact Info) Description 11/29/2022 Patient Msg Cardiology [address] [place] [address] Provider, Ccf Appointment Cancellation Request Social History [...] on file 10/01/2022 Data from: https://www.neighborhoodatlas.medicine.[facility]/. Last address used for calculation [...] 06/30/2025 10:00 AM EDT Office Visit Cardiology [address] [place] [address] Isaías Kinney MD [address] [place] [address] DX: Chronic diastolic heart failure 09/20/2025 8:15 AM EST Procedure Cardiology [address] [place] [address] Dx. Atherosclerotic heart disease of [place] coronary artery with other forms of angina pectoris 09/20/2025 9:00 AM EST Appointment Cardiology [address] [place] [address] Dx. Atherosclerotic heart disease of [place] coronary artery with other forms of angina pectoris 09/20/2025 9:45 AM EST Office Visit Cardiology [address] [place] [address] Nj Wei MD [address] [place] [address] Dx. Atherosclerotic heart disease of [place] coronary artery with other forms of angina pectoris documented as of this encounter Visit Diagnoses Not on filedocumented in this encounter Care Teams Family Member Caretaker Relationship Specialty Start Date End Date Samm Serrano MD PCP - General Family Medicine 05/30/12 Tom Gonzalez [address] [place] [address] Primary Staff Physician Cardiology 12/02/18 Andreas Pierre MD [address] [place] [address] Primary Staff Physician Cardiology 04/26/23 Virgil Carrillo MD [address] [place] [address] Primary Staff Physician Cardiology 10/29/23 Jethro Mendoza MD [address] [place] [address] Primary Staff Physician Cardiology 12/26/23 Isaías Kinney MD [address] [place] [address] Primary Staff Physician Cardiology 01/10/24 documented as of this encounter
--- OUTSIDE RECORDS SUMMARY | 2025-04-22 13:40 | XMS_ITS | Encounter Summary ---
Author Organization [facility] Address [address] [place] [address] Care Team Providers Care Natural Remedy Consultant Name Role Phone Samm Serrano MD Primary Care Provider +-4 Tom Gonzalez Unavailable [phone] Andreas Pierre MD Unavailable Virgil Carrillo MD Unavailable Jethro Mendoza MD Unavailable Isaías Kinney MD Unavailable [phone] Source Comments In the event this information is protected by the Federal Confidentiality of Alcohol and Drug AbusePatient Records regulations: The Federal rules restrict any use of the information to criminally investigate or prosecute any alcohol or drug abuse patient.[facility] Encounter Details Date Type Department Care Team (Late st Contact Info) Description 11/28/2022 Patient Msg Vascular Surg Dept [address] [place] [address] Tiarra Lopez APRN.CYBER ANALYST [address] [place] [address] Appointment Cancellation Request Social History Tobacco Use [...] N ot on file 10/01/2022 Data from: https://www.neighborhoodatlas.medicine.[facility].edu/. Last address used for calculation [address] [...] 06/30/2025 10:00 AM EDT Office Visit Cardiology [address] [place] [address] Isaías Kinney MD [address] [place] [phone] DX: Chronic diastolic heart failure 09/20/2025 8:15 AM EST Procedure Cardiology [address] [place] [address] Dx. Atherosclerotic heart disease of [place] coronary artery with other forms of angina pectoris 09/20/2025 9:00 AM EST Appointment Cardiology [address] [place] [address] Dx. Atherosclerotic heart disease of [place] coronary artery with other forms of angina pectoris 09/20/2025 9:45 AM EST Office Visit Cardiology [address] [place] [address] Nj Wei MD [address] [place] [address] Dx. Atherosclerotic heart disease of [place] coronary artery with other forms of angina pectoris documented as of this encounter Visit Diagnoses Not on filedocumented in this encounter Care Teams Natural Remedy Consultant Relationship Specialty Start Date End Date Samm Serrano MD PCP - General Family Medicine 05/30/12 Tom Gonzalez [address] [place] [address] Primary Staff Physician Cardiology 12/02/18 Andreas Pierre MD [address] [place] [address] Primary Staff Physician Cardiology 04/26/23 Virgil Carrillo MD [address] [place] [address] Primary Staff Physician Cardiology 10/29/23 Jethro Mendoza MD [address] [place] [address] Primary Staff Physician Cardiology 12/26/23 Isaías Kinney MD [address] [place] [address] Primary Staff Physician Cardiology 01/10/24 documented as of this encounter
--- OUTSIDE RECORDS SUMMARY | 2025-04-22 13:40 | XMS_ITS | Encounter Summary ---
Author Organization [facility] Address [address] [place] [address] Care Team Providers Care Fish Technologist Name Role Phone Samm Serrano MD Primary Care Provider +-4 Tom Gonzalez Unavailable [phone] Andreas Pierre MD Unavailable Virgil Carrillo MD Unavailable Jethro Mendoza MD Unavailable Isaías Kinney MD Unavailable [phone] Source Comments In the event this information is protected by the Federal Confidentiality of Alcohol and Drug AbusePatient Records regulations: The Federal rules restrict any use of the information to criminally investigate or prosecute any alcohol or drug abuse patient.[facility] Encounter Details Date Type Department Care Team (Late st Contact Info) Description 11/28/2022 Patient Msg Cardiology [address] [place], [place] [phone] Provider, Ccf Appointment Cancellation Request Social History [...] N ot on file 10/01/2022 Data from: https://www.neighborhoodatlas.medicine.[facility]/. Last address used for calculation [address] [...] 06/30/2025 10:00 AM EDT Office Visit Cardiology [address] [place] [address] Isaías Kinney MD [address] [place] [address] DX: Chronic diastolic heart failure 09/20/2025 8:15 AM EST Procedure Cardiology [address] [place] [address] Dx. Atherosclerotic heart disease of [place] coronary artery with other forms of angina pectoris 09/20/2025 9:00 AM EST Appointment Cardiology [address] [place] [address] Dx. Atherosclerotic heart disease of [place] coronary artery with other forms of angina pectoris 09/20/2025 9:45 AM EST Office Visit Cardiology [address] [place] [address] Nj Wei MD [address] [place] [address] Dx. Atherosclerotic heart disease of [place] coronary artery with other forms of angina pectoris documented as of this encounter Visit Diagnoses Not on filedocumented in this encounter Care Teams Fish Technologist Relationship Specialty Start Date End Date Samm Serrano MD PCP - General Family Medicine 05/30/12 Tom Gonzalez [address] [place] [address] Primary Staff Physician Cardiology 12/02/18 Andreas Pierre MD [address] [place] [address] Primary Staff Physician Cardiology 04/26/23 Virgil Carrillo MD [address] [place] [address] Primary Staff Physician Cardiology 10/29/23 Jethro Mendoza MD [address] [place] [address] Primary Staff Physician Cardiology 12/26/23 Isaías Kinney MD [address] [place] [address] Primary Staff Physician Cardiology 01/10/24 documented as of this encounter
--- OUTSIDE RECORDS SUMMARY | 2025-04-22 13:40 | XMS_ITS | Encounter Summary ---
Author Organization [facility] Address [address] [place] [address] Care Team Providers Care Accounting Reconciliation Clerk Name Role Phone Samm Serrano MD Primary Care Provider +-4 Tom Gonzalez Unavailable [phone] Andreas Pierre MD Unavailable Virgil Carrillo MD Unavailable Jethro Mendoza MD Unavailable Isaías Kinney MD Unavailable [phone] Source Comments In the event this information is protected by the Federal Confidentiality of Alcohol and Drug AbusePatient Records regulations: The Federal rules restrict any use of the information to criminally investigate or prosecute any alcohol or drug abuse patient.[facility] Encounter Details Date Type Department Care Team (Late st Contact Info) Description 11/28/2022 Patient Msg Cardiology [address] [place], [place] [phone] Provider, Ccf Appointment Cancellation Request Social History [...] N ot on file 10/01/2022 Data from: https://www.neighborhoodatlas.medicine.[facility]/. Last address used for calculation [address] [...] 06/30/2025 10:00 AM EDT Office Visit Cardiology [address] [place] [address] Isaías Kinney MD [address] [place] [address] DX: Chronic diastolic heart failure 09/20/2025 8:15 AM EST Procedure Cardiology [address] [place] [address] Dx. Atherosclerotic heart disease of [place] coronary artery with other forms of angina pectoris 09/20/2025 9:00 AM EST Appointment Cardiology [address] [place] [address] Dx. Atherosclerotic heart disease of [place] coronary artery with other forms of angina pectoris 09/20/2025 9:45 AM EST Office Visit Cardiology [address] [place] [address] Nj Wei MD [address] [place] [address] Dx. Atherosclerotic heart disease of [place] coronary artery with other forms of angina pectoris documented as of this encounter Visit Diagnoses Not on filedocumented in this encounter Care Teams Accounting Reconciliation Clerk Relationship Specialty Start Date End Date Samm Serrano MD PCP - General Family Medicine 05/30/12 Tom Gonzalez [address] [place] [address] Primary Staff Physician Cardiology 12/02/18 Andreas Pierre MD [address] [place] [address] Primary Staff Physician Cardiology 04/26/23 Virgil Carrillo MD [address] [place] [address] Primary Staff Physician Cardiology 10/29/23 Jethro Mendoza MD [address] [place] [address] Primary Staff Physician Cardiology 12/26/23 Isaías Kinney MD [address] [place] [address] Primary Staff Physician Cardiology 01/10/24 documented as of this encounter
--- OUTSIDE RECORDS SUMMARY | 2025-04-22 13:40 | XMS_ITS | Encounter Summary ---
Author Organization [facility] Address [address] [place] [address] Care Team Providers Care Multiple Wire Sawyer Name Role Phone Samm Serrano MD Primary Care Provider +-4 Tom Gonzalez Unavailable [phone] Andreas Pierre MD Unavailable Virgil Carrillo MD Unavailable Jethro Mendoza MD Unavailable Isaías Kinney MD Unavailable [phone] Source Comments In the event this information is protected by the Federal Confidentiality of Alcohol and Drug AbusePatient Records regulations: The Federal rules restrict any use of the information to criminally investigate or prosecute any alcohol or drug abuse patient.[facility] Encounter Details Date Type Department Care Team (Late st Contact Info) Description 09/03/2022 Letters (in) Vascular Surg Dept [address] [place] [address] John Jefferson MD [address] [place] [address] Social History Tobacco Use Types Packs/Day Years [...] N ot on file 04/26/2022 Data from: https://www.neighborhoodatlas.medicine.[facility]/. Last address used for calculation [address] [...] MD - 09/03/2022 12:00 AM EST John Jfeferson MD Change Advisor Department of Vascular Surgery [address] [place] [address] Office: [phone] Appointments: [facility] [place]/ [phone] Fax: [phone] December 19, 2022 José Miguel Roth [address] [place] [address] NAME: JOSÉ MIGUEL ROTH [facility] NO: [id number] : 1940 DATE OF SERVICE: 09/03/2022 Dear [...] Jefferson M.D (Signed electronically to expedite mailing) [facility]/rin . SUMEET/089 Audio #: [id number] Date Dictated: 12/19/2022 11:16:33 Date Typed: 12/21/2022 08:54:29 Date Revised: documented in this encounter Plan of Treatment Upcoming Encounters Date Type Department Care Team (Latest Contact Info) Description 06/30/2025 10:00 AM EDT Office Visit Cardiology [address] [place] [address] Isaías Kinney MD [address] [place] [address] DX: Chronic diastolic heart failure 09/20/2025 8:15 AM EST Procedure Cardiology [address] [place] [address] Dx. Atherosclerotic heart disease of [place] coronary artery with other forms of angina pectoris 09/20/2025 9:00 AM EST Appointment Cardiology [address] [place], [place] [address] Dx. Atherosclerotic heart disease of [place] coronary artery with other forms of angina pectoris 09/20/2025 9:45 AM EST Office Visit Cardiology [address] [place], [place] [phone] Nj Wei MD [address] [place] [phone] Dx. Atherosclerotic heart disease of [place] coronary artery with other forms of angina pectoris documented as of this encounter Visit Diagnoses Not on filedocumented in this encounter Care Teams Multiple Wire Sawyer Relationship Specialty Start Date End Date Samm Serrano MD PCP - General Family Medicine 05/30/12 Tom Gonzalez [address] [place] [address] Primary Staff Physician Cardiology 12/02/18 Andreas Pierre MD [address] [place], [place] [address] Primary Staff Physician Cardiology 04/26/23 Virgil Carrillo MD [address] [place], [place] [address] Primary Staff Physician Cardiology 10/29/23 Jethro Mendoza MD [address] [place] [address] Primary Staff Physician Cardiology 12/26/23 Isaías Kinney MD [address] [place] [address] Primary Staff Physician Cardiology 01/10/24 documented as of this encounter
--- OUTSIDE RECORDS SUMMARY | 2025-04-22 13:40 | XMS_ITS | Encounter Summary ---
Author Organization [facility] Address [address] [place] [address] Care Team Providers Care End Stapler Name Role Phone Samm Serrano MD Primary Care Provider +-4 Tom Gonzalez Unavailable [phone] Andreas Pierre MD Unavailable Virgil Carrillo MD Unavailable Jethro Mendoza MD Unavailable Isaías Kinney MD Unavailable [phone] Source Comments In the event this information is protected by the Federal Confidentiality of Alcohol and Drug AbusePatient Records regulations: The Federal rules restrict any use of the information to criminally investigate or prosecute any alcohol or drug abuse patient.[facility] Encounter Details Date Type Department Care Team (Late st Contact Info) Description 08/23/[address] [place] [address] Provider, Ccf Research Social History Tobacco [...] N ot on file 04/26/2022 Data from: https://www.neighborhoodatlas.medicine.[facility].edu/. Last address used for calculation 9[address] [...] 06/30/2025 10:00 AM EDT Office Visit Cardiology [address] [place] [address] Isaías Kinney MD [address] [place] [address] DX: Chronic diastolic heart failure 09/20/2025 8:15 AM EST Procedure Cardiology [address] [place] [address] Dx. Atherosclerotic heart disease of [place] coronary artery with other forms of angina pectoris 09/20/2025 9:00 AM EST Appointment Cardiology [address] [place] [address] Dx. Atherosclerotic heart disease of [place] coronary artery with other forms of angina pectoris 09/20/2025 9:45 AM EST Office Visit Cardiology [address] [place] [address] Nj Wei MD [address] [place] [address] Dx. Atherosclerotic heart disease of [place] coronary artery with other forms of angina pectoris documented as of this encounter Visit Diagnoses Not on filedocumented in this encounter Care Teams End Stapler Relationship Specialty Start Date End Date Samm Serrano MD PCP - General Family Medicine 05/30/12 Tom Gonzalez [address] [place] [address] Primary Staff Physician Cardiology 12/02/18 Andreas Pierre MD [address] [place] [phone] Primary Staff Physician Cardiology 04/26/23 Virgil Carrillo MD [address] [place] [address] Primary Staff Physician Cardiology 10/29/23 Jethro Mendoza MD [address] [place] [address] Primary Staff Physician Cardiology 12/26/23 Isaías Kinney MD [address] [place] [address] Primary Staff Physician Cardiology 01/10/24 documented as of this encounter
--- OUTSIDE RECORDS SUMMARY | 2025-04-22 13:40 | XMS_ITS | Encounter Summary ---
Author Organization [facility] Address [address] [place] [address] Care Team Providers Care Optical Glass Inspector Name Role Phone Samm Serrano MD Primary Care Provider +-4 Tom Gonzalez Unavailable [phone] Andreas Pierre MD Unavailable Virgil Carrillo MD Unavailable Jethro Mendoza MD Unavailable Isaías Kinney MD Unavailable [phone] Source Comments In the event this [...] 11/28/2022 Patient Msg Vascular Surg Dept [address] [place] [address] John Jefferson MD [address] [place] [address] Appointment Cancellation Request Social History Tobacco Use [...] N ot on file 10/01/2022 Data from: https://www.neighborhoodatlas.[facility].edu/. Last address used for calculation [...] 06/30/2025 10:00 AM EDT Office Visit Cardiology [address] [place] [address] Isaías Kinney MD [address] [place] [address] DX: Chronic diastolic heart failure 09/20/2025 8:15 AM EST Procedure Cardiology [address] [place] [address] Dx. Atherosclerotic heart disease of [place] coronary artery with other forms of angina pectoris 09/20/2025 9:00 AM EST Appointment Cardiology [address] [place] [address] Dx. Atherosclerotic heart disease of [place] coronary artery with other forms of angina pectoris 09/20/2025 9:45 AM EST Office Visit Cardiology [address] [place] [address] Nj Wei MD [address] [place] [address] Dx. Atherosclerotic heart disease of [place] coronary artery with other forms of angina pectoris documented as of this encounter Visit Diagnoses Not on filedocumented in this encounter Care Teams Optical Glass Inspector Relationship Specialty Start Date End Date Samm Serrano MD PCP - General Family Medicine 9/14/12 Tom Gonzalez [address] [place] [address] Primary Staff Physician Cardiology 12/02/18 Andreas Pierre MD [address] [place] [address] Primary Staff Physician Cardiology 04/26/23 Virgil Carrillo MD [address] [place] [address] Primary Staff Physician Cardiology 10/29/23 Jethro Mendoza MD [address] [place] [address] Primary Staff Physician Cardiology 12/26/23 Isaías Kinney MD [address] [place] [address] Primary Staff Physician Cardiology 01/10/24 documented as of this encounter
--- OUTSIDE RECORDS SUMMARY | 2025-04-22 13:40 | XMS_ITS | Encounter Summary ---
Author Organization [facility] Address [address] [place] [address] Care Team Providers Care Electronic Technician Name Role Phone Samm Serrano MD Primary Care Provider +-4 Tom Gonzalez Unavailable [phone] Andreas Pierre MD Unavailable Virgil Carrillo MD Unavailable Jethro Mendoza MD Unavailable Isaías Kinney MD Unavailable [phone] Source Comments In the event this information is protected by the Federal Confidentiality of Alcohol and Drug AbusePatient Records regulations: The Federal rules restrict any use of the information to criminally investigate or prosecute any alcohol or drug abuse patient.[facility] Encounter Details Date Type Department Care Team (Late st Contact Info) Description 11/28/2022 Patient Msg Cardiology [address] [place], [place] [phone] Provider, Ccf Appointment Cancellation Request Social History [...] ot on file 10/01/2022 Data from: https://www.neighborhoodatlas.medicine.[facility]/. Last address [...] 10:00 AM EDT Office Visit Cardiology [address] [place] [address] Isaías Kinney MD [address] [place] [address] DX: Chronic diastolic heart failure 09/20/2025 8:15 AM EST Procedure Cardiology [address] [place] [address] Dx. Atherosclerotic heart disease of [place] coronary artery with other forms of angina pectoris 09/20/2025 9:00 AM EST Appointment Cardiology [address] [place] [address] Dx. Atherosclerotic heart disease of [place] coronary artery with other forms of angina pectoris 09/20/2025 9:45 AM EST Office Visit Cardiology [address] [place] [address] Nj Wei MD [address] [place] [address] Dx. Atherosclerotic heart disease of [place] coronary artery with other forms of angina pectoris documented as of this encounter Visit Diagnoses Not on filedocumented in this encounter Care Teams Electronic Technician Relationship Specialty Start Date End Date Samm Serrano MD PCP - General Family Medicine 05/30/12 Tom Gonzalez [address] [place] [address] Primary Staff Physician Cardiology 12/02/18 Andreas Pierre MD [address] [place] [address] Primary Staff Physician Cardiology 04/26/23 Virgil Carrillo MD [address] [place] [address] Primary Staff Physician Cardiology 10/29/23 Jethro Mendoza MD [address] [place] [address] Primary Staff Physician Cardiology 12/26/23 Isaías Kinney MD [address] [place] [address] Primary Staff Physician Cardiology 01/10/24 documented as of this encounter
--- OUTSIDE RECORDS SUMMARY | 2025-04-22 13:40 | XMS_ITS | Encounter Summary ---
Author Organization [facility] Address [address] [place] [address] Care Team Providers Care Pipe Line Walker Name Role Phone Samm Serrano MD Primary Care Provider +-4 Tom Gonzalez Unavailable [phone] Andreas Pierre MD Unavailable Virgil Carrillo MD Unavailable Jethro Mendoza MD Unavailable Isaías Kinney MD Unavailable [phone] Source Comments In the event this information is protected by the Federal Confidentiality of Alcohol and Drug AbusePatient Records regulations: The Federal rules restrict any use of the information to criminally investigate or prosecute any alcohol or drug abuse patient.[facility] Encounter Details Date Type Department Care Team (Late st Contact Info) Description 11/28/2022 Patient Msg Cardiology [address] [place], [place] [phone] Provider, Ccf Appointment Cancellation Request Social History [...] ot on file 10/01/2022 Data from: https://www.neighborhoodatlas.medicine.[facility]/. Last address used for calculation [...] 06/30/2025 10:00 AM EDT Office Visit Cardiology [address] [place] [address] Isaías Kinney MD [address] [place] [address] DX: Chronic diastolic heart failure 09/20/2025 8:15 AM EST Procedure Cardiology [address] [place] [address] Dx. Atherosclerotic heart disease of [place] coronary artery with other forms of angina pectoris 09/20/2025 9:00 AM EST Appointment Cardiology [address] [place] [address] Dx. Atherosclerotic heart disease of [place] coronary artery with other forms of angina pectoris 09/20/2025 9:45 AM EST Office Visit Cardiology [address] [place] [address] Nj Wei MD [address] [place] [address] Dx. Atherosclerotic heart disease of [place] coronary artery with other forms of angina pectoris documented as of this encounter Visit Diagnoses Not on filedocumented in this encounter Care Teams Pipe Line Walker Relationship Specialty Start Date End Date Samm Serrano MD PCP - General Family Medicine 05/30/12 Tom Gonzalez [address] [place] [address] Primary Staff Physician Cardiology 12/02/18 Andreas Pierre MD [address] [place] [address] Primary Staff Physician Cardiology 04/26/23 Virgil Carrillo MD [address] [place] [address] Primary Staff Physician Cardiology 10/29/23 Jethro Mendoza MD [address] [place] [address] Primary Staff Physician Cardiology 12/26/23 Isaías Kinney MD [address] [place] [address] Primary Staff Physician Cardiology 01/10/24 documented as of this encounter
--- OUTSIDE RECORDS SUMMARY | 2025-04-22 13:40 | XMS_ITS | Encounter Summary ---
Author Organization [facility] Address [address] [place] [address] Care Team Providers Care Interface Designer Name Role Phone Samm Serrano MD Primary Care Provider +-4 Tom Gonzalez Unavailable [phone] Andreas Pierre MD Unavailable Virgil Carrillo MD Unavailable Jethro Mendoza MD Unavailable Isaías Kinney MD Unavailable [phone] Source Comments In the event this information is protected by the Federal Confidentiality of Alcohol and Drug AbusePatient Records regulations: The Federal rules restrict any use of the information to criminally investigate or prosecute any alcohol or drug abuse patient.[facility] Encounter Details Date Type Department Care Team (Late st Contact Info) Description 09/01/2024 Patient Msg Cardiology [address] [place], [place] [phone] Isaías Kinney MD [address] [place] [address] Spironolactone Social History Tobacco Use Types Packs/Day Years Used Date Smoking Tobacco: Former Cigarettes 1 10 0 04/28/1972 - 04/28/1982 Pipe Passive Smoke Exposure: Never Smokeless Tobacco: Never Alcohol Use Standard Drinks/Week Comments Not Currently 0 (1 standard drink = 0.6 oz pur e alcohol) rarely [facility] Utilities Answer Date Recorded In the past 12 months has th e electric, gas, oil, or water [employer] threatened to shut off services in [...] time in the past 12 m [facility], were you homeless or living in a halfway (including now)? Yes 07/22/2024 Area Deprivation Index Answer Date Rich rded National Score (1-100), lower number is lower ri sk 52 02/05/2024 State Score (1-10), lower number is lower risk 3 02/05/2024 Data from: https://www.neighborhoodatlas.medicine.[facility].edu/. Last address used for calculation [address] [place] [address] [address] 02/05/2024 Sex and Gender Information [...] 06/30/2025 10:00 AM EDT Office Visit Cardiology [address] [place] [address] Isaías Kinney MD [address] [place], [place] [phone] DX: Chronic diastolic heart failure 09/20/2025 8:15 AM EST Procedure Cardiology [address] [place] [address] Dx. Atherosclerotic heart disease of [place] coronary artery with other forms of angina pectoris 09/20/2025 9:00 AM EST Appointment Cardiology [address] [place] [address] Dx. Atherosclerotic heart disease of [place] coronary artery with other forms of angina pectoris 09/20/2025 9:45 AM EST Office Visit Cardiology [address] [place] [address] Nj Wei MD [address] [place], [place] [phone] Dx. Atherosclerotic heart disease of [place] coronary artery with other forms of angina pectoris documented as of this encounter Goals Goal Patient Goal Type Associated Problems Recent Progress Patient-Stated? Author Blood Pressure < 130/80 Blood Pressure 134/63( 025 3:00 PM EDT) No Lidia Lo, ARIES documented as of this encounter Visit Diagnoses Not on filedocumented in this encounter Care Teams Interface Designer Relationship Specialty Start Date End Date Samm Serrano MD PCP - General Family Medicine 05/30/12 Tom Gonzalez [address] [place] [address] Primary Staff Physician Cardiology 12/02/18 Andreas Pierre MD [address] [place] [phone] Primary Staff Physician Cardiology 04/26/23 Virgil Carrillo MD [address] [place] [phone] Primary Staff Physician Cardiology 10/29/23 Jethro Mendoza MD [address] [place] [address] Primary Staff Physician Cardiology 12/26/23 Isaías Kinney MD [address] [place] [address] Primary Staff Physician Cardiology 01/10/24 documented as of this encounter
--- OUTSIDE RECORDS SUMMARY | 2025-04-22 13:40 | XMS_ITS | Encounter Summary ---
Author Organization [facility] Address [address] [place] [address] Care Team Providers Care Senior Network Administrator Name Role Phone Samm Serrano MD Primary Care Provider +-4 Tom Gonzalez Unavailable [phone] Andreas Pierre MD Unavailable Virgil Carrillo MD Unavailable Jethro Mendoza MD Unavailable Isaías Kinney MD Unavailable [phone] Source Comments In the event this information is protected by the Federal Confidentiality of Alcohol and Drug AbusePatient Records regulations: The Federal rules restrict any use of the information to criminally investigate or prosecute any alcohol or drug abuse patient.[facility] Encounter Details Date Type Department Care Team (Late st Contact Info) Description 11/29/2022 Patient Msg Cardiology [address] [place], [place] [phone] Provider, Ccf Appointment Cancellation Request Social History [...] N ot on file 10/01/2022 Data from: https://www.neighborhoodatlas.medicine.[facility]/. Last address used for [...] 10:00 AM EDT Office Visit Cardiology [address] [place] [address] Isaías Kinney MD [address] [place] [address] DX: Chronic diastolic heart failure 09/20/2025 8:15 AM EST Procedure Cardiology [address] [place] [address] 6[address] Dx. Atherosclerotic heart disease of [place] coronary artery with other forms of angina pectoris 09/20/2025 9:00 AM EST Appointment Cardiology [address] [place] [address] 8[address] Dx. Atherosclerotic heart disease of [place] coronary artery with other forms of angina pectoris 09/20/2025 9:45 AM EST Office Visit Cardiology [address] [place] [address] Nj Wei MD [address] [place] [address] Dx. Atherosclerotic heart disease of [place] coronary artery with other forms of angina pectoris documented as of this encounter Visit Diagnoses Not on filedocumented in this encounter Care Teams Senior Network Administrator Relationship Specialty Start Date End Date Samm Serrano MD PCP - General Family Medicine 05/30/12 Tom Gonzalez [address] [place] [address] Primary Staff Physician Cardiology 12/02/18 Andreas Pierre MD [address] [place] [address] Primary Staff Physician Cardiology 04/26/23 Virgil Carrillo MD [address] [place] [address] Primary Staff Physician Cardiology 10/29/23 Jethro Mendoza MD [address] [place] [address] Primary Staff Physician Cardiology 12/26/23 Isaías Kinney MD [address] [place] [address] Primary Staff Physician Cardiology 01/10/24 documented as of this encounter
--- OUTSIDE RECORDS SUMMARY | 2025-04-22 13:40 | XMS_ITS | Clinical Summary ---
Author Organization [facility] Address [address] [place] [address] Care Team Providers Care Nut Culler Name Role Phone Sesar Serrano Primary Care Provider [phone] Allergies Active Allergy Reactions Criticality Noted Date [...] drink = 0.6 oz pur e alcohol) [facility] Utilities Answer Date Recorded In the past 12 months has [employer] electric, gas, oil, or water [employer] threatened to shut off services in your [...] often do you attend chur ch or nondenominational services? More than 4 times per year [...] and heating? Not hard at all 11/03/2024 [place] [facility] of Occupat ional Health - Occupational Stress [...] any time in the past 12 m [facility], were you homeless or living in [...] 10/17/2024 3:50 PM EST Plan of Treatment Health Maintenance Due Date Last Done Comments Annual Visit Topic 1941 Pneumococcal Vaccine: 65+ Years (1 of 4 - PCV) 1961 DTaP/Tdap/Td Vaccines (3 - Tdap) 06/13/2030 06/13/2020, 06/13/2020 HIB Vaccines Aged Out No longer eligi ble based on patient's age to complete this topic HPV Vaccines Aged Out No longer eligi ble based on patient's age to complete this topic Hepatitis A Vaccines Aged Out No long er eligible based on patient's age to complete this topic Hepatitis B Vaccines Aged Out No long er eligible based on patient's age to complete this topic IPV Vaccines Aged Out No longer eligi ble based on patient's age to complete this topic Meningococcal Vaccine Aged Out No clary rika eligible based on patient's age to complete this topic Advance Directives * Full Resuscitation (Latest Code Status on File) Date Activated Date Inactivated Comments 10/17/2024 2:54 PM 11/04/2024 7:42 PM Question Answer Comments I have discussed this order with the patient or his/her surrogate and have received informed consent. Yes Care Teams Nut Culler Relationship Specialty Start Date End Date Sesar eSrrano [address] [place] [address] PCP - General 10/20/24
--- OUTSIDE RECORDS SUMMARY | 2025-04-22 13:40 | XMS_ITS | Encounter Summary ---
Author Organization [facility] Address [address] [place] [address] Care Team Providers Care Tack Cleaner Name Role Phone Samm Serrano MD Primary Care Provider +-4 Tom Gonzalez Unavailable [phone] Andreas Pierre MD Unavailable Virgil Carrillo MD Unavailable Jethro Mendoza MD Unavailable Isaías Kinney MD Unavailable [phone] Source Comments In the event this information is protected by the Federal Confidentiality of Alcohol and Drug AbusePatient Records regulations: The Federal rules restrict any use of the information to criminally investigate or prosecute any alcohol or drug abuse patient.[facility] Encounter Details Date Type Department Care Team (Late st Contact Info) Description 11/28/2022 Patient Msg Vascular Surg Dept [address] [place] [address] Tiarra Lopez APRN.DISPLAY SPECIALIST [address] [place] [address] Appointment Cancellation Request Social History Tobacco Use [...] N ot on file 10/01/2022 Data from: https://www.neighborhoodatlas.medicine.[facility].edu/. Last address used for calculation [...] Assessment Author No 03/25/2019 11:00 AM Jai Carlson (Radha)ARIES * Do you have serious [...] 06/30/2025 10:00 AM EDT Office Visit Cardiology [address] [place] [address] Isaías Kinney MD [address] [place] [phone] DX: Chronic diastolic heart failure 09/20/2025 8:15 AM EST Procedure Cardiology [address] [place] [address] Dx. Atherosclerotic heart disease of [place] coronary artery with other forms of angina pectoris 09/20/2025 9:00 AM EST Appointment Cardiology [address] [place] [address] Dx. Atherosclerotic heart disease of [place] coronary artery with other forms of angina pectoris 09/20/2025 9:45 AM EST Office Visit Cardiology [address] [place] [address] Nj Wei MD [address] [place] [address] Dx. Atherosclerotic heart disease of [place] coronary artery with other forms of angina pectoris documented as of this encounter Visit Diagnoses Not on filedocumented in this encounter Care Teams Tack Cleaner Relationship Specialty Start Date End Date Samm Serrano MD PCP - General Family Medicine 05/30/12 Tom Gonzalez [address] [place] [address] Primary Staff Physician Cardiology 12/02/18 Andreas Pierre MD [address] [place] [address] Primary Staff Physician Cardiology 04/26/23 Virgil Carrillo MD [address] [place] [address] Primary Staff Physician Cardiology 10/29/23 Jethro Mendoza MD [address] [place] [address] Primary Staff Physician Cardiology 12/26/23 Isaías Kinney MD [address] [place] [address] Primary Staff Physician Cardiology 01/10/24 documented as of this encounter
--- OUTSIDE RECORDS SUMMARY | 2025-04-22 13:40 | XMS_ITS | Encounter Summary ---
Author Organization [facility] Address [address] [place] [address] Care Team Providers Care Restaurant Operations Manager Name Role Phone Samm Serrano MD Primary Care Provider +-4 Tom Gonzalez Unavailable [phone] Andreas Pierre MD Unavailable Virgil Carrillo MD Unavailable Jethro Mendoza MD Unavailable Isaías Kinney MD Unavailable [phone] Source Comments In the event this information is protected by the Federal Confidentiality of Alcohol and Drug AbusePatient Records regulations: The Federal rules restrict any use of the information to criminally investigate or prosecute any alcohol or drug abuse patient.[facility] Encounter Details Date Type Department Care Team (Late st Contact Info) Description 01/22/2022 Get Medical Advice Radiation Oncology [address] [place] [address] [place] [address] Yung Andrade MD [address] [place] [address] Medication Question (Not Renewal) Social History Tobacco [...] N ot on file 08/21/2020 Data from: https://www.neighborhoodatlas.medicine.[facility].edu/. Last address used for calculation Not [...] 10:00 AM EDT Office Visit Cardiology [address] [place] [address] Isaías Kinney MD [address] [place] [address] DX: Chronic diastolic heart failure 09/20/2025 8:15 AM EST Procedure Cardiology [address] [place] [address] Dx. Atherosclerotic heart disease of [place] coronary artery with other forms of angina pectoris 09/20/2025 9:00 AM EST Appointment Cardiology [address] [place] [address] Dx. Atherosclerotic heart disease of [place] coronary artery with other forms of angina pectoris 09/20/2025 9:45 AM EST Office Visit Cardiology [address] [place] [address] Nj Wei MD [address] [place] [address] Dx. Atherosclerotic heart disease of [place] coronary artery with other forms of angina pectoris documented as of this encounter Visit Diagnoses Not on filedocumented in this encounter Care Teams Restaurant Operations Manager Relationship Specialty Start Date End Date Samm Serrano MD PCP - General Family Medicine 05/30/12 Tom Gonzalez [address] [place] [address] Primary Staff Physician Cardiology 12/02/18 Andreas Pierre MD [address] [place], [place] [phone] Primary Staff Physician Cardiology 04/26/23 Virgil Carrillo MD [address] [place] [address] Primary Staff Physician Cardiology 10/29/23 Jethro Mendoza MD [address] [place] [address] Primary Staff Physician Cardiology 12/26/23 Isaías Kinney MD [address] [place] [address] Primary Staff Physician Cardiology 01/10/24 documented as of this encounter
--- OUTSIDE RECORDS SUMMARY | 2025-04-22 13:40 | XMS_ITS | Encounter Summary ---
Author Organization [facility] Address [address] [place] [address] Care Team Providers Care Manager Operations Name Role Phone Samm Serrano MD Primary Care Provider [phone] Inocencoi Falk DO Unavailable [phone] Tom Gonzalez Unavailable [phone] Andreas Pierre MD Unavailable Virgil Carrillo MD Unavailable Jethro Mendoza MD Unavailable Isaías Kinney MD Unavailable [phone] Source Comments In the event this information is protected by the Federal Confidentiality of Alcohol and Drug AbusePatient Records regulations: The Federal rules restrict any use of the information to criminally investigate or prosecute any alcohol or drug abuse patient.[facility] Encounter Details Date Type Department Care Team (Late st Contact Info) Description 11/21/2012 Patient Msg Medical Records [address] [place] [address] Provider, Ccf Appointment Cancellation Request Social History [...] 06/30/2025 10:00 AM EDT Office Visit Cardiology [address] [place], [place] [phone] Isaías Kinney MD [address] [place] [phone] DX: Chronic diastolic heart failure 09/20/2025 8:15 AM EST Procedure Cardiology [address] [place] [address] Dx. Atherosclerotic heart disease of [place] coronary artery with other forms of angina pectoris 09/20/2025 9:00 AM EST Appointment Cardiology [address] [place], [place] [phone] Dx. Atherosclerotic heart disease of [place] coronary artery with other forms of angina pectoris 09/20/2025 9:45 AM EST Office Visit Cardiology [address] [place] [phone] Nj Wei MD [address] [place] [address] Dx. Atherosclerotic heart disease of [place] coronary artery with other forms of angina pectoris documented as of this encounter Visit Diagnoses Not on filedocumented in this encounter Care Teams Manager Operations Relationship Specialty Start Date End Date Samm Serrano MD PCP - General Family Medicine 05/30/12 Inocencio Falk DO [address] [facility] [place] [address] Primary Staff Physician Cardiology 12/15/14 Carlos Tommarvin Gtz [address] [place] [address] Primary Staff Physician Cardiology 12/02/18 Andreas Pierre MD [address] [place] [address] Primary Staff Physician Cardiology 04/26/23 Virgil Carrillo MD [address] [place] [phone] Primary Staff Physician Cardiology 10/29/23 Jethro Mendoza MD [address] [facility] [place] [address] Primary Staff Physician Cardiology 12/26/23 Isaías Kinney MD [address] [place] [address] Primary Staff Physician Cardiology 01/10/24 documented as of this encounter
--- OUTSIDE RECORDS SUMMARY | 2025-04-22 13:40 | XMS_ITS | Encounter Summary ---
Author Organization [facility] Address [address] [place] [address] Care Team Providers Care Seafood Fisherman Name Role Phone Samm Serrano MD Primary Care Provider +-4 Tom Gonzalez Unavailable [phone] Andreas Pierre MD Unavailable Virgil Carrillo MD Unavailable Jethro Mendoza MD Unavailable Isaías Kinney MD Unavailable [phone] Source Comments In the event this information is protected by the Federal Confidentiality of Alcohol and Drug AbusePatient Records regulations: The Federal rules restrict any use of the information to criminally investigate or prosecute any alcohol or drug abuse patient.[facility] Encounter Details Date Type Department Care Team (Late st Contact Info) Description 01/19/2022 Get Medical Advice Radiation Oncology [address] [place] [address] [place] [address] Yung Andrade MD [address] [place] [address] Medication Question (Not Renewal) Social History Tobacco [...] on file 08/21/2020 Data from: https://www.neighborhoodatlas.medicine.[facility].edu/. Last address used for calculation Not [...] No 03/25/2019 11:00 AM EDT Jia Rios (Rdaha)ARIES * Are you blind or do you [...] 10:00 AM EDT Office Visit Cardiology [address] [place] [address] Isaías Kinney MD [address] [place] [address] DX: Chronic diastolic heart failure 09/20/2025 8:15 AM EST Procedure Cardiology [address] [place] [address] Dx. Atherosclerotic heart disease of [place] coronary artery with other forms of angina pectoris 09/20/2025 9:00 AM EST Appointment Cardiology [address] [place] [address] Dx. Atherosclerotic heart disease of [place] coronary artery with other forms of angina pectoris 09/20/2025 9:45 AM EST Office Visit Cardiology [address] [place] [address] Nj Wei MD [address] [place] [address] Dx. Atherosclerotic heart disease of [place] coronary artery with other forms of angina pectoris documented as of this encounter Visit Diagnoses Not on filedocumented in this encounter Care Teams Seafood Fisherman Relationship Specialty Start Date End Date Samm Serrano MD PCP - General Family Medicine 05/30/12 Tom Gonzalez [address] [place] [address] Primary Staff Physician Cardiology 12/02/18 Andreas Pierre MD [address] [place], [place] [phone] Primary Staff Physician Cardiology 04/26/23 Virgil Carrillo MD [address] [place] [address] Primary Staff Physician Cardiology 10/29/23 Jethro Mendoza MD [address] [place] [address] Primary Staff Physician Cardiology 12/26/23 Isaías Kinney MD [address] [place] [address] Primary Staff Physician Cardiology 01/10/24 documented as of this encounter
--- OUTSIDE RECORDS SUMMARY | 2025-04-22 13:40 | XMS_ITS | Encounter Summary ---
Author Organization [facility] Address [address] [place] [address] Care Team Providers Care Facsimile Operator Name Role Phone Samm Serrano MD Primary Care Provider +-4 Tom Gonzalez Unavailable [phone] Andreas Pierre MD Unavailable Virgil Carrillo MD Unavailable Jethro Mendoza MD Unavailable Isaías Kinney MD Unavailable [phone] Source Comments In the event this information is protected by the Federal Confidentiality of Alcohol and Drug AbusePatient Records regulations: The Federal rules restrict any use of the information to criminally investigate or prosecute any alcohol or drug abuse patient.[facility] Encounter Details Date Type Department Care Team (Late st Contact Info) Description 11/28/2022 Patient Msg Vascular Surg Dept [address] [place] [address] Tiarra Lopez APRN.CRITICAL CARE NURSE [address] [place] [address] Appointment Cancellation Request Social History Tobacco Use [...] N ot on file 10/01/2022 Data from: https://www.neighborhoodatlas.medicine.[facility].edu/. Last address used for calculation [address] [...] 06/30/2025 10:00 AM EDT Office Visit Cardiology [address] [place] [address] Isaías Kinney MD [address] [place] [phone] DX: Chronic diastolic heart failure 09/20/2025 8:15 AM EST Procedure Cardiology [address] [place] [address] Dx. Atherosclerotic heart disease of [place] coronary artery with other forms of angina pectoris 09/20/2025 9:00 AM EST Appointment Cardiology [address] [place] [address] Dx. Atherosclerotic heart disease of [place] coronary artery with other forms of angina pectoris 09/20/2025 9:45 AM EST Office Visit Cardiology [address] [place] [address] Nj Wei MD [address] [place] [address] Dx. Atherosclerotic heart disease of [place] coronary artery with other forms of angina pectoris documented as of this encounter Visit Diagnoses Not on filedocumented in this encounter Care Teams Facsimile Operator Relationship Specialty Start Date End Date Samm Serrano MD PCP - General Family Medicine 05/30/12 Tom Gonzalez [address] [place] [address] Primary Staff Physician Cardiology 12/02/18 Andreas Pierre MD [address] [place] [address] Primary Staff Physician Cardiology 04/26/23 Virgil Carrillo MD [address] [place] [address] Primary Staff Physician Cardiology 10/29/23 Jethro Mendoza MD [address] [place] [address] Primary Staff Physician Cardiology 12/26/23 Isaías Kinney MD [address] [place] [address] Primary Staff Physician Cardiology 01/10/24 documented as of this encounter
--- OUTSIDE RECORDS SUMMARY | 2025-04-22 13:40 | XMS_ITS | Encounter Summary ---
Author Organization [facility] Address [address] [place] [address] Care Team Providers Care Cobbler Mckay Name Role Phone Samm Serrano MD Primary Care Provider [phone] Inocencio Falk DO Unavailable [phone] Tom Gonzalez Unavailable [phone] Andreas Pierre MD Unavailable Virgil Carrillo MD Unavailable Jethro Mendoza MD Unavailable Isaías Kinney MD Unavailable [phone] Source Comments In the event this information is protected by the Federal Confidentiality of Alcohol and Drug AbusePatient Records regulations: The Federal rules restrict any use of the information to criminally investigate or prosecute any alcohol or drug abuse patient.[facility] Encounter Details Date Type Department Care Team (Late st Contact Info) Description 06/09/2013 Patient Msg Medical Records [address] [place] [address] Provider, Ccf RE: Request an Appointment Social [...] 06/30/2025 10:00 AM EDT Office Visit Cardiology [address] [place], [place] [phone] Isaías Kinney MD [address] [place] [phone] DX: Chronic diastolic heart failure 09/20/2025 8:15 AM EST Procedure Cardiology [address] [place] [address] Dx. Atherosclerotic heart disease of [place] coronary artery with other forms of angina pectoris 09/20/2025 9:00 AM EST Appointment Cardiology [address] [place], [place] [phone] Dx. Atherosclerotic heart disease of [place] coronary artery with other forms of angina pectoris 09/20/2025 9:45 AM EST Office Visit Cardiology [address] [place], [place] [phone] Nj Wei MD [address] [place] [address] Dx. Atherosclerotic heart disease of [place] coronary artery with other forms of angina pectoris documented as of this encounter Visit Diagnoses Not on filedocumented in this encounter Care Teams Cobbler Mckay Relationship Specialty Start Date End Date Samm Serrano MD PCP - General Family Medicine 05/30/12 Inocencio Falk DO [address] [facility] [place] [phone] Primary Staff Physician Cardiology 12/15/14 Carlos Tommarvin Gtz [address] [place] [address] [place] [address] Primary Staff Physician Cardiology 12/02/18 Andreas Pierre MD [address] [place] [address] Primary Staff Physician Cardiology 04/26/23 Virgil Carrillo MD [address] [place] [phone] Primary Staff Physician Cardiology 10/29/23 Jethro Mendoza MD [address] [facility] [place] [address] Primary Staff Physician Cardiology 12/26/23 Isaías Kinney MD [address] [place] [phone] Primary Staff Physician Cardiology 01/10/24 documented as of this encounter
--- OUTSIDE RECORDS SUMMARY | 2025-04-22 13:40 | XMS_ITS | Encounter Summary ---
Author Organization [facility] Address [address] [place] [address] Care Team Providers Care Croze Machine Operator Name Role Phone Samm Serrano MD Primary Care Provider +-4 Tom Gonzalez Unavailable [phone] Andreas Pierre MD Unavailable Virgil Carrillo MD Unavailable Jethro Mendoza MD Unavailable Isaías Kinney MD Unavailable [phone] Source Comments In the event this information is protected by the Federal Confidentiality of Alcohol and Drug AbusePatient Records regulations: The Federal rules restrict any use of the information to criminally investigate or prosecute any alcohol or drug abuse patient.[facility] Encounter Details Date Type Department Care Team (Late st Contact Info) Description 07/16/2022 Get Medical Advice Cardiology [address] [place], [place] 1937506 Andreas Pierre MD [address] [place] [address] medication question Social History Tobacco Use Types [...] N ot on file 04/26/2022 Data from: https://www.neighborhoodatlas.medicine.[facility]/. Last address used for [...] 10:00 AM EDT Office Visit Cardiology [address] [place] [address] Isaías Kinney MD [address] [place] [address] DX: Chronic diastolic heart failure 09/20/2025 8:15 AM EST Procedure Cardiology [address] [place] [address] Dx. Atherosclerotic heart disease of [place] coronary artery with other forms of angina pectoris 09/20/2025 9:00 AM EST Appointment Cardiology [address] [place] [address] Dx. Atherosclerotic heart disease of [place] coronary artery with other forms of angina pectoris 09/20/2025 9:45 AM EST Office Visit Cardiology [address] [place] [address] Nj Wei MD [address] [place] [address] Dx. Atherosclerotic heart disease of [place] coronary artery with other forms of angina pectoris documented as of this encounter Visit Diagnoses Not on filedocumented in this encounter Care Teams Croze Machine Operator Relationship Specialty Start Date End Date Samm Serrano MD PCP - General Family Medicine 05/30/12 Tom Gonzalez Ulisses [address] [place] [address] Primary Staff Physician Cardiology 12/02/18 Andreas Pierre MD [address] [place] [address] Primary Staff Physician Cardiology 04/26/23 Virgil Carrillo MD [address] [place] [address] Primary Staff Physician Cardiology 10/29/23 Jethro Mendoza MD [address] [place] [address] Primary Staff Physician Cardiology 12/26/23 Isaías Kinney MD [address] [place] [address] Primary Staff Physician Cardiology 01/10/24 documented as of this encounter
--- OUTSIDE RECORDS SUMMARY | 2025-04-22 13:41 | XMS_ITS | Encounter Summary ---
Author Organization [facility] Address [address] [place] [address] Care Team Providers Care First Front Ventilator Name Role Phone Samm Serrano MD Primary Care Provider +-4 Tom Gonzalez Unavailable [phone] Andreas Pierre MD Unavailable Virgil Carrillo MD Unavailable Jethro Mendoza MD Unavailable Isaías Kinney MD Unavailable [phone] Source Comments In the event this information is protected by the Federal Confidentiality of Alcohol and Drug AbusePatient Records regulations: The Federal rules restrict any use of the information to criminally investigate or prosecute any alcohol or drug abuse patient.[facility] Encounter Details Date Type Department Care Team (Late st Contact Info) Description 11/29/2022 Patient Msg Cardiology [address] [place], [place] [phone] Provider, Ccf Appointment Cancellation Request Social History [...] ot on file 10/01/2022 Data from: https://www.neighborhoodatlas.medicine.[facility]/. Last address used for calculation [address] [...] 10:00 AM EDT Office Visit Cardiology [address] [place] [address] Isaías Kinney MD [address] [place] [address] DX: Chronic diastolic heart failure 09/20/2025 8:15 AM EST Procedure Cardiology [address] [place] [address] Dx. Atherosclerotic heart disease of [place] coronary artery with other forms of angina pectoris 09/20/2025 9:00 AM EST Appointment Cardiology [address] [place] [address] Dx. Atherosclerotic heart disease of [place] coronary artery with other forms of angina pectoris 09/20/2025 9:45 AM EST Office Visit Cardiology [address] [place] [address] Nj Wei MD [address] [place] [address] Dx. Atherosclerotic heart disease of [place] coronary artery with other forms of angina pectoris documented as of this encounter Visit Diagnoses Not on filedocumented in this encounter Care Teams First Front Ventilator Relationship Specialty Start Date End Date Samm Serrano MD PCP - General Family Medicine 05/30/12 Tom Gonzalez [address] [place] [address] Primary Staff Physician Cardiology 12/02/18 Andreas Pierre MD [address] [place] [address] Primary Staff Physician Cardiology 04/26/23 Virgil Carrillo MD [address] [place] [address] Primary Staff Physician Cardiology 10/29/23 Jethro Mendoza MD [address] [place] [address] Primary Staff Physician Cardiology 12/26/23 Isaías Kinney MD [address] [place] [address] Primary Staff Physician Cardiology 01/10/24 documented as of this encounter
--- OUTSIDE RECORDS SUMMARY | 2025-04-22 13:41 | XMS_ITS | Encounter Summary ---
Author Organization [facility] Address [address] [place] [address] Care Team Providers Care Java Software Engineer Name Role Phone Samm Serrano MD Primary Care Provider +-4 Tom Gnozalez Unavailable [phone] Andreas Pierre MD Unavailable Virgil Carrillo MD Unavailable Jethro Mendoza MD Unavailable Isaías Kinney MD Unavailable [phone] Source Comments In the event this information is protected by the Federal Confidentiality of Alcohol and Drug AbusePatient Records regulations: The Federal rules restrict any use of the information to criminally investigate or prosecute any alcohol or drug abuse patient.[facility] Encounter Details Date Type Department Care Team (Late st Contact Info) Description 11/28/2022 Patient Msg Vascular Surg Dept [address] [place] [address] Tiarra Lopez APRN.[employer] BU[employer]DER [employer] [address] [place] [address] Appointment Cancellation Request Social History Tobacco Use [...] ot on file 10/01/2022 Data from: https://www.neighborhoodatlas.medicine.[facility].edu/. Last [...] 10:00 AM EDT Office Visit Cardiology [address] [place] [address] Isaías Kinney MD [address] [place] [phone] DX: Chronic diastolic heart failure 09/20/2025 8:15 AM EST Procedure Cardiology [address] [place] [address] Dx. Atherosclerotic heart disease of [place] coronary artery with other forms of angina pectoris 09/20/2025 9:00 AM EST Appointment Cardiology [address] [place] [address] Dx. Atherosclerotic heart disease of [place] coronary artery with other forms of angina pectoris 09/20/2025 9:45 AM EST Office Visit Cardiology [address] [place] [address] Nj Wei MD [address] [place] [address] Dx. Atherosclerotic heart disease of [place] coronary artery with other forms of angina pectoris documented as of this encounter Visit Diagnoses Not on filedocumented in this encounter Care Teams Java Software Engineer Relationship Specialty Start Date End Date Samm Serrano MD PCP - General Family Medicine 05/30/12 Tom Gonzalez [address] [place] [address] Primary Staff Physician Cardiology 12/02/18 Andreas Pierre MD [address] [place] [address] Primary Staff Physician Cardiology 04/26/23 Virgil Carrillo MD [address] [place] [address] Primary Staff Physician Cardiology 10/29/23 Jethro Mendoza MD [address] [place] [address] Primary Staff Physician Cardiology 12/26/23 Isaías Kinney MD [address] [place] [address] Primary Staff Physician Cardiology 01/10/24 documented as of this encounter
--- OUTSIDE RECORDS SUMMARY | 2025-04-22 13:41 | XMS_ITS | Encounter Summary ---
Author Organization [facility] Address [address] [place] [address] Care Team Providers Care Fluxer Name Role Phone Samm Serrano MD Primary [...] st Contact Info) Description 09/28/2023 D[place] [address] Note, Interface Social History Tobacco Use Types [...] lower risk 3 04/02/2023 Data from: https://www.neigh katherinehoodatlas.medicine.[facility].edu/. Last address used for calculation [...] 10:00 AM EDT Office Visit Cardiology [address] [place] [phone] Isaías Kinney MD [address] [place] [phone] DX: Chronic diastolic heart failure 09/20/2025 8:15 AM EST Procedure Cardiology [address] [place] [address] Dx. Atherosclerotic heart disease of [place] coronary artery with other forms of angina pectoris 09/20/2025 9:00 AM EST Appointment Cardiology [address] [place], [place] [phone] Dx. Atherosclerotic heart disease of [place] coronary artery with other forms of angina pectoris 09/20/2025 9:45 AM EST Office Visit Cardiology [address] [place] [address] Nj Wei MD [address] [place] [address] Dx. Atherosclerotic heart disease of [place] coronary artery with other forms of angina pectoris documented as of this encounter Visit Diagnoses Not on filedocumented in this encounter Care Teams Fluxer Relationship Specialty Start Date End Date Samm Serrano MD PCP - General Family Medicine 05/30/12 Tom Gonzalez [address] [place] [address] Primary Staff Physician Cardiology 12/02/18 Andreas Pierre MD [address] [place] [phone] Primary Staff Physician Cardiology 04/26/23 Virgil Carrillo MD [address] [place] [phone] Primary Staff Physician Cardiology 10/29/23 Jethro Mendoza MD [address] [place] [address] Primary Staff Physician Cardiology 12/26/23 Isaías Kinney MD [address] [place] [address] Primary Staff Physician Cardiology 01/10/24 documented as of this encounter
--- OUTSIDE RECORDS SUMMARY | 2025-04-22 13:41 | XMS_ITS | Encounter Summary ---
Author Organization [facility] Address [address] [place] [address] Care Team Providers Care Browning Processor Name Role Phone Samm Serrano MD Primary Care Provider +-[phone] Tom Gonzalez Unavailable [phone] Andreas Pierre MD Unavailable Virgil Carrillo MD Unavailable Jethro Mendoza MD Unavailable Isaías Kinney MD Unavailable [phone] Source Comments In the event this information is protected by the Federal Confidentiality of Alcohol and Drug AbusePatient Records regulations: The Federal rules restrict any use of the information to criminally investigate or prosecute any alcohol or drug abuse patient.[facility] Encounter Details Date Type Department Care Team (Late st Contact Info) Description 11/28/2022 Patient Msg Vascular Surg Dept [address] [place] [address] John Jefferson MD [address] [place] [address] Appointment Cancellation Request Social History Tobacco Use [...] N ot on file 10/01/2022 Data from: https://www.neighborhoodatlas.[email or web address]/. Last address used for calculation [address] [...] 06/30/2025 10:00 AM EDT Office Visit Cardiology [address] [place] [address] Isaías Kinney MD [address] [place] [address] DX: Chronic diastolic heart failure 09/20/2025 8:15 AM EST Procedure Cardiology [address] [place] [address] Dx. Atherosclerotic heart disease of [place] coronary artery with other forms of angina pectoris 09/20/2025 9:00 AM EST Appointment Cardiology [address] [place] [address] Dx. Atherosclerotic heart disease of [place] coronary artery with other forms of angina pectoris 09/20/2025 9:45 AM EST Office Visit Cardiology [address] [place] [address] Nj Wei MD [address] [place] [address] Dx. Atherosclerotic heart disease of [place] coronary artery with other forms of angina pectoris documented as of this encounter Visit Diagnoses Not on filedocumented in this encounter Care Teams Browning Processor Relationship Specialty Start Date End Date Samm Serrano MD PCP - General Family Medicine 9/14/12 Tom Gonzalez [address] [place] [address] Primary Staff Physician Cardiology 12/02/18 Andreas Pierre MD [address] [place] [address] Primary Staff Physician Cardiology 04/26/23 Virgil Carrillo MD [address] [place] [address] Primary Staff Physician Cardiology 10/29/23 Jethro Mendoza MD [address] [place] [address] Primary Staff Physician Cardiology 12/26/23 Isaías Kinney MD [address] [place] [address] Primary Staff Physician Cardiology 01/10/24 documented as of this encounter
--- OUTSIDE RECORDS SUMMARY | 2025-04-22 13:41 | XMS_ITS | Encounter Summary ---
Author Organization [facility] Address [address] [place] [address] Care Team Providers Care Farmworker Poultry Name Role Phone Samm Serrano MD Primary Care Provider [phone] Inocencio Falk DO Unavailable [phone] Tom Gonzalez Unavailable [phone] Andreas Pierre MD Unavailable Virgil Carrillo MD Unavailable Jethro Mendoza MD Unavailable Isaías Kinney MD Unavailable [phone] Source Comments In the event this information is protected by the Federal Confidentiality of Alcohol and Drug AbusePatient Records regulations: The Federal rules restrict any use of the information to criminally investigate or prosecute any alcohol or drug abuse patient.[facility] Encounter Details Date Type Department Care Team (Late st Contact Info) Description 06/09/2013 Patient Msg Medical Records [address] [place] [address] Provider, Ccf Request an Appointment Social History [...] 10:00 AM EDT Office Visit Cardiology [address] [place], [place] [phone] Isaías Kinney MD [address] [place] [phone] DX: Chronic diastolic heart failure 09/20/2025 8:15 AM EST Procedure Cardiology [address] [place] [address] Dx. Atherosclerotic heart disease of [place] coronary artery with other forms of angina pectoris 09/20/2025 9:00 AM EST Appointment Cardiology [address] [place], [place] [phone] Dx. Atherosclerotic heart disease of [place] coronary artery with other forms of angina pectoris 09/20/2025 9:45 AM EST Office Visit Cardiology [address] [place], [place] [phone] Nj Wei MD [address] [place] [address] Dx. Atherosclerotic heart disease of [place] coronary artery with other forms of angina pectoris documented as of this encounter Visit Diagnoses Not on filedocumented in this encounter Care Teams Farmworker Poultry Relationship Specialty Start Date End Date Samm Serrano MD PCP - General Family Medicine 05/30/12 Inocencio Falk DO [address] [place] [address] Primary Staff Physician Cardiology 12/15/14 Carlos Tommarvin Gtz [address] [place] [address] Primary Staff Physician Cardiology 12/02/18 Andreas Pierre MD [address] [place] [address] Primary Staff Physician Cardiology 04/26/23 Virgil aCrrillo MD [address] [place] [phone] Primary Staff Physician Cardiology 10/29/23 Jethro Mendoza MD [address] [place], [place] [address] [place] [address] Primary Staff Physician Cardiology 12/26/23 Isaías Kinney MD [address] [place] [phone] Primary Staff Physician Cardiology 01/10/24 documented as of this encounter
--- OUTSIDE RECORDS SUMMARY | 2025-04-22 13:41 | XMS_ITS | Encounter Summary ---
Author Organization [facility] Address [address] [place] [address] Care Team Providers Care Apparel Sales Associate Name Role Phone Samm Serrano MD Primary Care Provider [phone] Inocencio Falk DO Unavailable [phone] Tom Gonzalez Unavailable [phone] Andreas Pierre MD Unavailable Virgil Carrillo MD Unavailable Jethro Mendoza MD Unavailable Isaías Kinney MD Unavailable [phone] Source Comments In the event this information is protected by the Federal Confidentiality of Alcohol and Drug AbusePatient Records regulations: The Federal rules restrict any use of the information to criminally investigate or prosecute any alcohol or drug abuse patient.[facility] Encounter Details Date Type Department Care Team (Late st Contact Info) Description 11/21/2012 Patient Msg Medical Records [address] [place] [address] Provider, Ccf RE: Appointment Cancellation Request Social [...] 06/30/2025 10:00 AM EDT Office Visit Cardiology [address] [place], [place] [phone] Isaías Kinney MD [address] [place] [phone] DX: Chronic diastolic heart failure 09/20/2025 8:15 AM EST Procedure Cardiology [address] [place] [address] Dx. Atherosclerotic heart disease of [place] coronary artery with other forms of angina pectoris 09/20/2025 9:00 AM EST Appointment Cardiology [address] [place], [place] [phone] Dx. Atherosclerotic heart disease of [place] coronary artery with other forms of angina pectoris 09/20/2025 9:45 AM EST Office Visit Cardiology [address] [place], [place] [phone] Nj Wei MD [address] [place] [address] Dx. Atherosclerotic heart disease of [place] coronary artery with other forms of angina pectoris documented as of this encounter Visit Diagnoses Not on filedocumented in this encounter Care Teams Apparel Sales Associate Relationship Specialty Start Date End Date Samm Serrano MD PCP - General Family Medicine 05/30/12 Inocenico Falk DO [address] [facility] [place] [address] Primary Staff Physician Cardiology 12/15/14 Tom Gonzalez [address] [place] [address] [place] [address] Primary Staff Physician Cardiology 12/02/18 Andreas Pierre MD [address] [place] [phone] Primary Staff Physician Cardiology 04/26/23 Virgil Carrillo MD [address] [place] [phone] Primary Staff Physician Cardiology 10/29/23 Jethro Mendoza MD [address] [place] [address] Primary Staff Physician Cardiology 12/26/23 Isaías Kinney MD [address] [place] [address] Primary Staff Physician Cardiology 01/10/24 documented as of this encounter
--- OUTSIDE RECORDS SUMMARY | 2025-04-22 13:41 | XMS_ITS | Encounter Summary ---
Author Organization [facility] Address [address] [place] [address] Care Team Providers Care Android Framework Developer Name Role Phone Samm Serrano MD Primary Care Provider [phone] Tom Gonzalez Unavailable [phone] Andreas Pierre MD Unavailable Virgil Carrillo MD Unavailable Jethro Mendoza MD Unavailable Isaías Kinney MD Unavailable [phone] Source Comments In the event this information is protected by the Federal Confidentiality of Alcohol and Drug AbusePatient Records regulations: The Federal rules restrict any use of the information to criminally investigate or prosecute any alcohol or drug abuse patient.[facility] Encounter Details Date Type Department Care Team (Late st Contact Info) Description 11/28/2022 Patient Msg Vascular Surg Dept [address] [place] [address] Tiarra Lopez APRN.DIRECTOR SHIP [address] [place] [address] Appointment Cancellation Request Social History Tobacco Use [...] N ot on file 10/01/2022 Data from: https://www.neighborhoodatlas.medicine.[facility].edu/. Last address used for calculation [address] [...] 06/30/2025 10:00 AM EDT Office Visit Cardiology [address] [place] [address] Isaías Kinney MD [address] [place] [phone] DX: Chronic diastolic heart failure 09/20/2025 8:15 AM EST Procedure Cardiology [address] [place] [address] Dx. Atherosclerotic heart disease of [place] coronary artery with other forms of angina pectoris 09/20/2025 9:00 AM EST Appointment Cardiology [address] [place] [address] Dx. Atherosclerotic heart disease of [place] coronary artery with other forms of angina pectoris 09/20/2025 9:45 AM EST Office Visit Cardiology [address] [place] [address] Nj Wei MD [address] [place] [address] Dx. Atherosclerotic heart disease of [place] coronary artery with other forms of angina pectoris documented as of this encounter Visit Diagnoses Not on filedocumented in this encounter Care Teams Android Framework Developer Relationship Specialty Start Date End Date Samm Serrano MD PCP - General Family Medicine 05/30/12 Tom Gonzalez [address] [place] [address] Primary Staff Physician Cardiology 12/02/18 Andreas Pierre MD [address] [place] [address] Primary Staff Physician Cardiology 04/26/23 Virgil Carrillo MD [address] [place] [address] Primary Staff Physician Cardiology 10/29/23 Jethro Mendoza MD [address] [place] [address] Primary Staff Physician Cardiology 12/26/23 Isaías Kinney MD [address] [place] [address] Primary Staff Physician Cardiology 01/10/24 documented as of this encounter
--- OUTSIDE RECORDS SUMMARY | 2025-04-22 13:42 | XMS_ITS | Clinical Summary ---
Author Organization [facility] Address [address] [place] [address] Care Team Providers Care Premises Technician Name Role Phone Francisca Serrano MD Primary Care Provider [phone] Allergies Active Allergy Reactions Criticality Noted Date [...] succinate XL (Toprol-XL) 25 mg 24 hr tabletIndications:A KI (acute kidney injury) Take 0.5 tablets (12.5 mg) by mouth in the morning for 89 doses. Do not crush or chew. 5 Active mexiletine (Mexitil) 150 mg capsuleIndications: MYLES (acute kidney injury) Take 1 capsule (150 mg) by mouth two times daily for 192 doses. 5 Active bumetanide (Bumex) 2 mg tabletIndications:A KI (acute kidney injury) Take 1 tablet (2 mg) by mouth every 12 (twelve) hours for 198 doses. 5 Active thiamine (Vitamin B-1) 100 mg tablet Take 100 mg by mouth in the morning. Active potassium chloride CR (Klor-Con M20) 20 mEq ER tabletIndications:H ypokalemia Take 1 tablet (20 mEq) by mouth in the morning. Do not crush or chew. 60 tablet 1 5 Active aMILoride (Midamor) 5 mg tabletIndications:C ardiorenal syndrome with renal failure, stage 1-4 or unspecified chronic kidney disease, with heart failure (CMS/HCC),Hypokalem ia,Heart failure with reduced ejection fraction (CMS/HCC) Take 1 tablet (5 mg) by mouth in the morning. 60 tablet 1 5 Active liothyronine (Cytomel) 5 mcg tabletIndications:A cquired hypothyroidism Take 1 tablet (5 mcg) by mouth in the morning. 30 tablet 5 Active ondansetron (Zofran) 4 mg tablet Take 8 mg by mouth if needed. Active cephalexin (Keflex) 500 mg capsule Take 1 capsule (500 mg) by mouth four times daily for 5 days. 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 Both and patient are where the most contact roller man prior to taking the medication. Viagra 1/2 [...] clinical risk group is: Favorable intermediate risk [facility] Nomogram probability for Lymph Node Metastasis: 2% Location: bilateral Severity: moderate Quality: NCCN guidelines unfavorable intermediate risk Based on social security life tables patient is predicted life expectancy is: 10 yrs Baseline urinary function is: good Baseline sexual function is: cannot sustain erection Comorbidities: cardiac---MA, Has AICD ==== 07/17/2019 ==== patient follow-up [...] Referral to be made -per patient choice [facility]. 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 Plan: Aggressive risk factor management. See CAD section. Sweating 11/17/2012 10/10/2023 Overview (10/10/2023): History: Developed cold sweat ~ 1100 at rest during mandaen on 11/16. There was no nausea, chest pain, jaw pain, shortness of breath, or lightheadedness. This is similar to his symptoms when patient had STEMI in 04/2012. Patient presented to [facility] at 1200. EKG showed q waves in III, aVF; ST depression in I, aVL; ST elevation V3, V4, V5. On arrival to [facility] his EKG showed resolution of ST elevation in V4 and V5. His troponin 0.367 at OSH (? Troponin I); but has been negative at [facility] Main campus. Assessment: Possible atypical manifestations type II demand ischemia in setting of recent dehydration from profuse diarrhea or residual symptoms of recent illness. Cold sweat resolved after arrival. Plan: Trend cardiac enzymes, monitor clinical symptoms, and serial EKG's as needed. If continue to worsen clinically, would proceed to [facility]. S/P CABG (coronary artery bypass [...] (03/15/2025 4:04 PM EDT): Blood culture from [facility] reported Stenotrophomonas maltophilia Per ID blood cultures likely contaminant and antibiotics being discontinued Assessment & Plan (03/14/2025 11:12 AM EDT): Blood culture from [facility] reported Stenotrophomonas maltophilia Per ID blood cultures likely contaminant and antibiotics being discontinued Assessment & Plan (03/13/2025 12:15 PM EDT): Blood culture from [facility] reported Stenotrophomonas maltophilia Per ID blood cultures likely contaminant and antibiotics being discontinued Assessment & Plan (03/12/2025 4:29 PM EDT): Blood culture from [facility] reported Stenotrophomonas maltophilia Per ID blood cultures likely contaminant and antibiotics being discontinued Assessment & Plan (03/11/2025 2:32 PM EDT): Blood culture from [facility] reported Stenotrophomonas maltophilia Per ID blood cultures likely contaminant and antibiotics being discontinued Assessment & Plan (03/10/2025 3:11 PM EDT): Blood culture from [facility] reported Stenotrophomonas maltophilia Per ID blood cultures likely contaminant and antibiotics being discontinued Assessment & Plan (03/09/2025 1:05 PM EDT): Blood culture from [facility] reported Stenotrophomonas maltophilia Per ID blood [...] likely will need right heart cath with Diamond-Camden catheter as well as inotropic agent based [...] Encounters Date Type Department Care Team Description 04/16/2025 Orders Only [address] [place] [address] Nidia Pa MA Pleural effusion (Primary Dx) 04/16/2025 Orders Only [address] [place] [address] Nidia Pa MA 04/15/2025 Telephone [facility] [address] [place] [phone] Taylor Kendall MD 04/14/2025 Orders Only [address] [place] [phone] Nidia Pa MA Edema, unspecified type (Primary Dx) 04/14/[address] [place] [address] Nidia Pa MA 04/08/2025 9:20 AM EDT Office Visit [address] [place] [id number] Conchita Rivera CNP Stage 3b chronic kidney disease (CMS/HCC) (Primary Dx); Chronic systolic heart failure (CMS/HCC); Abnormal liver enzymes; Cardiomyopathy, ischemic; ICD (implantable cardioverter-defibril lator) discharge; Coronary artery disease involving coronary bypass graft of [place] heart without angina pectoris; S/P CABG (coronary artery bypass graft); Paroxysmal atrial fibrillation (CMS/HCC); Nonrheumatic mitral valve regurgitation; History of mitral valve repair 04/08/2025 Telephone [facility] [address] [place] [facility] [address] Radha Galindo MA 04/06/2025 Telephone [facility] [address] [place] [facility] [address] Nidia Pa MA 03/26/2025 Telephone [facility] [address] [place] [facility] [address] Radha Galindo MA 03/25/2025 Orders Only [facility] [address] [place] [facility] [address] Nidia Pa MA Edema, unspecified type (Primary Dx) 03/24/2025 Refill [facility] [address] [place] [facility] [address] Nidia Pa MA 03/24/2025 Orders Only [facility] [address] [place] [facility] [address] Taylor Kendall MD 03/21/2025 2:53 PM EDT - 03/21/2025 5:34 PM EDT Emergency [facility] Emergency [address] [place] [address] Juan R Alcantara DO Hematuria, unspecified type (Primary Dx); Urinary tract infection with hematuria, site unspecified Discharge Disposition: Home or Self Care (01) 03/21/2025 Travel 03/17/2025 3:40 PM EDT Office Visit [facility] [address] [place] [facility] [address] Taylor Kendall MD Chronic systolic heart failure (CMS/HCC) (Primary Dx); Cardiomyopathy, ischemic; Coronary artery disease involving coronary bypass graft of [place] heart without angina pectoris; S/P CABG (coronary artery bypass graft); Paroxysmal atrial fibrillation (CMS/HCC); NSVT (nonsustained ventricular tachycardia) (CMS/[facility]); ICD (implantable cardioverter-defibril lator) discharge; Nonrheumatic mitral valve regurgitation; History of mitral valve repair; Cerebrovascular accident (CVA) due to occlusion of precerebral artery (CMS/HCC); Carotid stenosis, asymptomatic, left; Pure hypercholesterolemia; Stage 3b chronic kidney disease (CMS/HCC) 03/17/2025 Telephone [facility] Heart [place] [place] [address] Nidia Pa MA 03/17/2025 Telephone [facility] V[facility] Vascular Lab [address] [place] [phone] Radha Dela Cruz RN HF post discharge call and inpatient survey sent. 03/05/2025 6:55 PM EDT - 03/16/2025 4:30 PM EDT Hospital Encounter [facility] [address] [place] [address] Edwardo De Jesus MD Saad, Hani, MD Acute on chronic congestive heart failure, unspecified heart failure type ([facility]/HCC) (Primary Dx); Elevated troponin; Other ascites; Hyperkalemia; Acute kidney injury superimposed on CKD; Type 2 diabetes mellitus with stage 3 chronic kidney disease, unspecified whether [place] [facility] [place] insulin use, unspecified whether stage 3a or 3b CKD ([facility]/HCC); Acute on chronic combined systolic and diastolic congestive heart failure ([facility]); Presence of automatic (implantable) cardiac defibrillator; Cardiorenal syndrome with renal failure, stage 1-4 or unspecified chronic kidney disease, with heart failure ([facility]); Coronary artery disease involving coronary bypass graft of [place] heart without angina pectoris; Primary hypertension; Acquired hypothyroidism; S/P CABG (coronary artery bypass graft); Acute HFrEF (heart failure with reduced ejection fraction) (CMS/HCC); Chronic HFrEF (heart failure with reduced ejection fraction) (CMS/HCC); Hypokalemia; Heart failure with reduced ejection fraction (CMS/HCC) Discharge Disposition: [place] [facility] [place] 03/05/2025 Travel from Last 3 Months Immunizations Immunization Administration Dates Next Due DT 06/13/2020 Family History Medical History Relation Name Comments Coronary artery disease Brother Coronary artery disease Father Relation Name Status Comments Brother Father Mother Social History Tobacco Use Types Packs/Day Years Used Date Smoking Tobacco: Former Cigarettes Smokeless Tobacco: Never Tobacco Cessation:Counseling Given: Not Answered Alcohol Use Standard Drinks/Week Comments Not Currently 0 (1 standard drink = 0.6 oz pur e alcohol) [facility] Utilities Answer Date Recorded In the [...] any time in the past 12 m [facility], were you homeless or living in a [place] [facility] [place] facility (including now)? No 03/05/2025 Hunger Vital Sign [...] Description 04/26/2025 2:30 PM EDT Office Visit [facility] Heart [address] [address] Ozzie Crain MD [address] [facility] [address] [place] [address] Health Maintenance Due Date Last Done Comments Medicare Annual Wellness (AWV) 1940 Diabetes: Retinopathy Screening 02/20/1952 Depression Screening 1954 Pneumococcal Vaccine: 50+ Years (1 of 2 - PCV) 1961 Adult Tetanus 02/20/1964 Zoster Vaccines (1 of 2) 02/20/1992 COVID-19 Vaccine ( - 2023-2 5 season) 2024 Diabetes: Hemoglobin A1C 01/02/2025 [...] Seen, 0-2 /HPF 03/21/2025 3:56 PM EDT [facility] ([facility]) WBC, Urine 21-50(A) None Seen, 0-2 /HPF 03/21/2025 3:56 PM EDT [facility] ([facility]) Squamous Epithelial, Urine None Seen None Seen, Occasional , Few /LPF 03/21/2025 3:56 PM EDT [facility] ([facility]) Urine Urine specimen obtained by clean catch procedure / Unknown Non-blood Collection / Unknown 03/21/2025 3:33 PM EDT 03/21/2025 3:40 PM EDT us Juan R Alcantara DO LAB URINE ORDERABLES Final Result [facility] ([facility]) [address] [place] [address] * (ABNORMAL) Urinalysis with reflex culture (03/21/2025 3:33 PM EDT) Color, Urine Red(A) Colorless, Yellow, Light-Yello w 03/21/2025 3:56 PM EDT [facility] ([facility]) Clarity, Urine Turbid(A) Clear 03/21/2025 3:56 PM EDT [facility] ([facility]) pH, Urine 7.0 5.0 - 8.0 pH 03/21/2025 3:56 PM EDT [facility] ([facility]) Leukocytes, Urine Unable to Perform Due to Color Interference Negative 03/21/2025 3:56 PM EDT [facility] ([facility]) Nitrite, Urine Unable to Perform Due to Color Interference Negative 03/21/2025 3:56 PM EDT [facility] ([facility]) Protein, Urine Unable to Perform Due to Color Interference Negative mg/dL 03/21/2025 3:56 PM EDT [facility] ([facility]) Glucose, Urine Unable to Perform Due to Color Interference Normal mg/dL 03/21/2025 3:56 PM EDT [facility] ([facility]) Bilirubin, Urine Unable to Perform Due to Color Interference Negative 03/21/2025 3:56 PM T [facility] ([facility]) Specific [place], Urine 1.007(L) 1.010 - 1.030 03/21/2025 3:56 PM EDT [facility] ([facility]) Ketones, Urine Unable to Perform Due to Color Interference Negative mg/dL 03/21/2025 3:56 PM EDT [facility] ([facility]) Blood, Urine Unable to Perform Due to Color Interference Negative 03/21/2025 3:56 PM T [facility] ([facility]) Urobilinogen, Urine Unable to Perform Due to Color Interference Normal mg/dL 03/21/2025 3:56 PM T [facility] ([facility]) Urine Urine specimen obtained by clean catch procedure / Unknown Non-blood Collection / Unknown 03/21/2025 3:33 PM EDT 03/21/2025 3:40 PM EDT [facility] LAB URINE ORDERABLES Final Result [facility]) [address] [place] [address] * Urine culture, routine (03/21/2025 3:33 PM EDT) Urine Culture No growth at 48 hours KYAW 03/23/2025 7:53 AM EDT [facility] ([facility]) Urine Urine specimen obtained by clean catch procedure / Unknown Non-blood Collection / Unknown 03/21/2025 3:33 PM EDT 03/21/2025 3:40 PM EDT Juan R [facility] MICROBIOLOGY - GENERAL ORDERABLES Final Result Performing Organization Address City/[facility]/ZIP Co de Phone Number [facility] ([facility]) [address] [place] [address] * (ABNORMAL) CBC auto differential (03/21/2025 3:16 PM EDT) Only the most recent of2 resultswithin the time period is included. Auto WBC 4.12 4.00 - 10.60 10*3/uL 03/21/2025 3:51 PM EDT [facility] ([facility]) RBC 4.05(L) 4.20 - 5.70 10*6/uL 03/21/2025 3:51 PM EDT [facility] ([facility]) Hemoglobin 12.2(L) 13.0 - 17.0 g/dL 03/21/2025 3:51 PM EDT [facility] ([facility]) Hematocrit 39.6 39.0 - 50.0 % 03/21/2025 3:51 PM EDT [facility] ([facility]) MCV 97.8 82.0 - 98.0 fL 03/21/2025 3:51 PM EDT [facility] ([facility]) MCH 30.1 27.0 - 33.0 pg 03/21/2025 3:51 PM EDT [facility] ([facility]) MCHC 30.8(L) 32.0 - 35.0 g/dL 03/21/2025 3:51 PM EDT [facility] ([facility]) RDW 16.0(H) 11.5 - 15.0 % 03/21/2025 3:51 PM EDT [facility] ([facility]) Neutrophils % 55.9 40.0 - 72.0 % 03/21/2025 3:51 PM EDT [facility] ([facility]) Lymphocytes % 20.6 20.0 - 45.0 % 03/21/2025 3:51 PM EDT [facility] ([facility]) Monocytes % 14.3(H) 5.0 - 12.0 % 03/21/2025 3:51 PM EDT [facility] ([facility]) Eosinophils % 8.0(H) 0.0 - 6.0 % 03/21/2025 3:51 PM EDT [facility] ([facility]) Basophils % 0.7 0.0 - 1.0 % 03/21/2025 3:51 PM EDT [facility] ([facility]) Neutrophils Absolute 2.30 1.60 - 7.60 10*3/uL 03/21/2025 3:51 PM EDT [facility] ([facility]) Lymphocytes Absolute 0.85(L) 1.20 - 4.00 10*3/uL 03/21/2025 3:51 PM EDT [facility] ([facility]) Monocytes Absolute 0.59 0.10 - 1.00 10*3/uL 03/21/2025 3:51 PM EDT [facility] ([facility]) Eosinophils Absolute 0.33 0.00 - 0.50 10*3/uL 03/21/2025 3:51 PM EDT [facility] ([facility]) Basophils Absolute 0.03 0.00 - 0.20 10*3/uL 03/21/2025 3:51 PM EDT [facility] ([facility]) Platelets 196 150 - 400 10*3/uL 03/21/2025 3:51 PM EDT [facility] ([facility]) nRBC % 0.0 0 % 03/21/2025 3:51 PM EDT [facility] ([facility]) Immature Granulocytes % 0.5 0.0 - 1.0 % 03/21/2025 3:51 PM EDT [facility] ([facility]) Immature Granulocytes Absolute 0.02 0.00 - 0.20 10*3/uL 03/21/2025 3:51 PM EDT [facility] ([facility]) Blood Venous blood specimen / Unknown Venipuncture / Unknown 03/21/2025 3:16 PM EDT 03/21/2025 3:43 PM EDT [facility] BLOOD ORDERABLES Final Result [facility]) [address] [place] [address] * Light Green Top (03/21/2025 3:16 PM EDT) Extra Tube Hold for add-ons. 03/21/2025 5:01 PM EDT [facility] ([facility]) Comment:Auto resulted. Blood Venous blood specimen / Unknown Venipuncture / Unknown 03/21/2025 3:16 PM EDT 03/21/2025 3:42 PM EDT [facility] BLOOD ORDERABLES Final Result Performing Organization Address City/[facility]/ZIP Co de Phone Number [facility]) [address] [place] [id number] * APTT (03/21/2025 3:16 PM EDT) Only the most recent of2 resultswithin the time period is included. aPTT 29.5 25.0 - 35.0 Seconds 03/21/2025 3:56 PM EDT [facility]) Comment:Clinical significanc e of the APTT is questionable in the presence of heparin. Blood Venous blood specimen / Unknown Venipuncture / Unknown 03/21/2025 3:16 PM EDT 03/21/2025 3:40 PM EDT Juan R Brendendavid DO LAB BLOOD ORDERABLES Final Result [facility] ([place]) [place] [address] * (ABNORMAL) Protime-INR (03/21/2025 3:16 PM EDT) Only the most recent of2 resultswithin the time period is included. Protime 17.6(H) 12.3 - 14.8 Seconds 03/21/2025 3:55 PM EDT [facility] ([place]) INR 1.44(H) 0.90 - 1.10 03/21/2025 3:55 PM EDT [facility] ([place]) Comment: [facility] RECOMMENDED INR FOR WARFARIN THERAPY [...] Alcantara DO LAB BLOOD ORDERABLES Final Result [facility] ([facility]) [address] [place] [address] * (ABNORMAL) Basic metabolic panel (03/21/2025 3:16 PM EDT) Only the most recent of11 resultswithin the time period is included. Sodium 134(L) 136 - 145 mmol/L 03/21/2025 5:00 PM EDT [facility] ([facility]) Potassium 4.5 3.5 - 5.1 mmol/L 03/21/2025 5:00 PM EDT [facility] ([facility]) Chloride 102 98 - 107 mmol/L 03/21/2025 5:00 PM EDT [facility] ([facility]) CO2 25 21 - 31 mmol/L 03/21/2025 5:00 PM EDT [facility] ([facility]) BUN 64(H) 7 - 25 mg/dL 03/21/2025 5:00 PM EDT [facility] ([facility]) Creatinine 1.98(H) 0.70 - 1.30 mg/dL 03/21/2025 5:00 PM EDT [facility] ([facility]) Glucose 89 70 - 100 mg/dL 03/21/2025 5:00 PM EDT [facility] ([facility]) Calcium 9.3 8.6 - 10.3 mg/dL 03/21/2025 5:00 PM EDT [facility] ([facility]) Anion Gap 12 7 - 20 mmol/L 03/21/2025 5:00 PM EDT [facility] ([facility]) eGFR 32.9(L) >60.0 mL/min/1. 73m*2 03/21/2025 5:00 PM EDT [facility] ([facility]) Comment:[facility] s estimated glomerular filtration rate (eGFR) [...] one group of individuals. BUN/Creatinine Ratio 32.3 /02/2025 5:00 PM EDT [facility] ([facility]) Blood Venous blood specimen / Unknown Venipuncture / Unknown 03/21/2025 3:16 PM EDT 03/21/2025 3:42 PM EDT Juan R Alcantara DO LAB BLOOD ORDERABLES Final Result [facility] ([facility]) [address] [place] [address] * (ABNORMAL) CBC (03/16/2025 4:05 AM EDT) Only the most recent of9 resultswithin the time period is included. Auto WBC 4.37 4.00 - 10.60 10*3/uL 03/16/2025 4:58 AM EDT [facility] ([facility]) RBC 4.21 4.20 - 5.70 10*6/uL 03/16/2025 4:58 AM EDT [facility] ([facility]) Hemoglobin 12.7(L) 13.0 - 17.0 g/dL 03/16/2025 4:58 AM EDT [facility] ([facility]) Hematocrit 40.3 39.0 - 50.0 % 03/16/2025 4:58 AM EDT [facility] ([facility]) MCV 95.7 82.0 - 98.0 fL 03/16/2025 4:58 AM EDT [facility] ([facility]) MCH 30.2 27.0 - 33.0 pg 03/16/2025 4:58 AM EDT [facility] ([facility]) MCHC 31.5(L) 32.0 - 35.0 g/dL 03/16/2025 4:58 AM EDT [facility] ([facility]) RDW 16.0(H) 11.5 - 15.0 % 03/16/2025 4:58 AM EDT [facility] ([facility]) Platelets 162 150 - 400 10*3/uL 03/16/2025 4:58 AM EDT [facility]) Blood Venous blood specimen / Unknown Venipuncture / Unknown 03/16/2025 4:05 AM EDT 03/16/2025 4:44 AM EDT us Jose Vargas MD LAB BLOOD ORDERABLES Final Result Performing Organization Address City/[facility]/ZIP Co de Phone Number [facility]) [address] [place] [id number] * Magnesium (03/16/2025 4:05 AM EDT) Only the most recent of11 resultswithin the time period is included. Magnesium 2.4 1.9 - 2.7 mg/dL 03/16/2025 5:16 AM EDT [facility]) Blood Venous blood specimen / Unknown Venipuncture / Unknown 03/16/2025 4:05 AM EDT 03/16/2025 4:43 AM EDT Tino Borja MD LAB BLOOD ORDERABLES Final Resul t Performing Organization Address [facility] Healthcare/[facility] Co de Phone Number [facility]) [address] [place] [phone] * (ABNORMAL) Hepatic function panel (03/09/2025 8:11 AM EDT) Total Bilirubin 1.4(H) 0.3 - 1.0 mg/dL 03/09/2025 9:59 AM EDT [facility]) Bilirubin, Direct 0.6(H) 0 - 0.2 mg/dL 03/09/2025 9:59 AM EDT [facility]) Alkaline Phosphatase 129(H) 34 - 104 U/L 03/09/2025 9:59 AM EDT [facility]) AST 29 13 - 39 U/L 03/09/2025 9:59 AM EDT [facility] ([facility]) ALT (SGPT) 14 7 - 52 U/L 03/09/2025 9:59 AM EDT [facility] ([facility]) Total Protein 6.4 6.0 - 8.3 g/dL 03/09/2025 9:59 AM EDT [facility] ([facility]) Albumin 3.2(L) 3.5 - 5.7 g/dL 03/09/2025 9:59 AM EDT [facility] ([facility]) Blood Venous blood specimen / Unknown Venipuncture / Unknown 03/09/2025 8:11 AM EDT 03/09/2025 8:20 AM EDT us Jose Vargas MD LAB BLOOD ORDERABLES Final Result Performing Organization Address City/[facility]/ZIP Co de Phone Number [facility] ([facility]) [address] [place] [address] * (ABNORMAL) Electrolyte panel (03/09/2025 8:11 AM EDT) Only the most recent of7 resultswithin the time period is included. Sodium 136 136 - 145 mmol/L 03/09/2025 8:44 AM EDT [facility] ([facility]) Potassium 3.7 3.5 - 5.1 mmol/L 03/09/2025 8:44 AM EDT [facility] ([facility]) Chloride 90(L) 98 - 107 mmol/L 03/09/2025 8:44 AM EDT [facility] ([facility]) CO2 38(H) 21 - 31 mmol/L 03/09/2025 8:44 AM EDT [facility] ([facility]) Anion Gap 12 7 - 20 mmol/L 03/09/2025 8:44 AM EDT [facility] ([facility]) Blood Venous blood specimen / Unknown Venipuncture / Unknown 03/09/2025 8:11 AM EDT 03/09/2025 8:20 AM EDT us Tino Borja MD LAB BLOOD ORDERABLES Final Resul t [facility] ([facility]) [address] [place] [address] * Lavender Top (03/09/2025 3:53 AM EDT) Only the most recent of3 resultswithin the time period is included. Extra Tube Hold for add-ons. 03/09/2025 6:01 AM EDT [facility] ([facility]) Comment:Auto resulted. Blood Venous blood specimen / Unknown Venipuncture / Unknown 03/09/2025 3:53 AM EDT 03/09/2025 4:32 AM EDT us Troy Agosto MD LAB BLOOD ORDERABLES Final Resul t [facility] ([facility]) [address] [place] [address] * VASC US LOWER EXTREMITY SEGMENTAL MARVEL (03/08/2025 12:27 [...] arterial occlusive disease left leg Mattie Daniel [facility] IMG CV VASCULAR PROCEDURES Final Result * ECG 12 lead (03/08/2025 9:45 AM EDT) Only the most recent of3 resultswithin the time period is included. Ventricular Rate 79 BPM GE MUSE QRS DURATION 126 ms GE MUSE QT Interval 410 ms GE MUSE QTC CALCULATION(BAZE TT) 470 ms GE MUSE R-[place] -11 degrees GE MUSE T Wave [place] 188 degrees GE MUSE 03/08/2025 9:29 AM EDT 03/08/2025 5:08 PM EDT Impressions GE MUSE - 03/08/2025 5:08 PM EDT Wide QRS rhythm with occasional Premature ventricular complexes Non-specific intra-ventricular conduction block Minimal voltage criteria for LVH, may be normal variant ( [place] product ) Cannot rule out Septal infarct , age undetermined Abnormal ECG When compared with ECG of 06-MAR-2025 09:06, (unconfirmed) Wide QRS rhythm has replaced Atrial flutter Confirmed by Brent ECHEVARRIA SAMER J. ([id number]) on 03/08/2025 5:08:46 PM Narrative Procedure Note Cayden Echevarria MD - 03/08/2025 IMPRESSION: Wide QRS rhythm with occasional Premature ventricular complexes Non-specific intra-ventricular conduction block Minimal voltage criteria for LVH, may be normal variant ( [place] product ) Cannot rule out Septal infarct , age undetermined Abnormal ECG When compared with ECG of 06-MAR-2025 09:06, (unconfirmed) Wide QRS rhythm has replaced Atrial flutter Confirmed by Brent ECHEVARRIA SAMER J. (59) on 03/08/2025 5:08:46 PM Cha Farley MD ECG ORDERABLES Final Re sult GE MUSE * (ABNORMAL) Uric acid (03/08/2025 5:45 AM EDT) Only the most recent of3 resultswithin the time period is included. [facility] Uric Acid 8.8(H) 4.4 - 7.6 mg/dL 03/08/2025 9:12 AM EDT [facility] ([facility]) Blood Venous blood specimen / Unknown Venipuncture / Unknown 03/08/2025 5:45 AM EDT 03/08/2025 5:50 AM EDT us Jose Vargas MD LAB BLOOD ORDERABLES Final Result [facility] ([facility]) [address] [place], [place] [id number] * Glucose 6 phosphate dehydrogenase (03/07/2025 12:32 PM EDT) [facility] Wtbtvri-3-Ufzyczel e Dehydrogenase 13.6 9.9 - 16.6 U/g Hb 03/10/2025 11:03 AM EDT [facility] ([facility]) Comment: Performed By: [employer] [address] [place] [address] Oncology Research Rn: Leonardo Bustillo MD, PhD CLIA Number: [id number] Blood Venous blood specimen / Unknown Venipuncture / Unknown 03/07/2025 12:32 PM EDT 03/07/2025 12:54 PM EDT us Tino Borja MD LAB BLOOD ORDERABLES Final Resul t [facility] ([facility]) [address] [place] [address] * Blood culture, peripheral #2 (03/07/2025 11:56 AM EDT) Only the most recent of2 resultswithin the time period is included. Blood Culture No growth at 5 days KYAW 03/12/2025 1:01 PM EDT [facility] ([facility]) Blood Venous blood specimen / Unknown Venipuncture / Unknown 03/07/2025 11:56 AM EDT 03/07/2025 12:16 PM EDT us Troy Agosto MD LAB MICROBIOLOGY - GENERAL ORDER SHEILA Final Result [facility]) [address] [place] [address] * POCT glucose meter (03/07/2025 11:06 AM EDT) Only the most recent of6 resultswithin the time period is included. Glucose POC 103 70 - 105 mg/dL 03/07/2025 11:16 AM EDT [facility] ([facility]) Comment:isegura2 Blood Capillary blood specimen / Unknown 03/07/2025 11:06 AM EDT 03/07/2025 11:16 AM EDT Narrative [facility] ([facility]) - 03/07/2025 11:16 AM EDT Waived Testing in the ED is performed under the ED CLIA certificate #[id number]. us Troy Agosto MD LAB BLOOD ORDERABLES Final Resul t [facility] ([facility]) [address] [place] [address] * US renal complete (03/07/2025 10:56 AM [...] volume abdominal ascites. Electronically signed: Hailey Norris. Tino Borja MD IMG US PROCEDURES Final Result * (ABNORMAL) High Sensitivity Troponin I (03/07/2025 3:47 AM EDT) Only the most recent of4 resultswithin the time period is included. High Sensitivity Troponin I 429(HH) <20 ng/L 03/07/2025 8:46 AM EDT [facility] ([facility]) Blood Venous blood specimen / Unknown Venipuncture / Unknown 03/07/2025 3:47 AM EDT 03/07/2025 3:58 AM EDT us Troy Agosto MD LAB BLOOD ORDERABLES Final Resul t [facility] ([facility]) [address] [place] [address] * (ABNORMAL) Comprehensive metabolic panel (03/07/2025 3:47 AM EDT) Only the most recent of2 resultswithin the time period is included. Sodium 138 136 - 145 mmol/L 03/07/2025 4:29 AM T [facility] ([facility]) Potassium 3.0(L) 3.5 - 5.1 mmol/L 03/07/2025 4:29 AM T [facility] ([facility]) Chloride 96(L) 98 - 107 mmol/L 03/07/2025 4:29 AM EDT [facility] ([facility]) CO2 30 21 - 31 mmol/L 03/07/2025 4:29 AM [facility] ([facility]) Anion Gap 15 7 - 20 mmol/L 03/07/2025 4:29 AM [facility] ([facility]) BUN 86(H) 7 - 25 mg/dL 03/07/2025 4:29 AM [facility] ([facility]) Creatinine 3.18(H) 0.70 - 1.30 mg/dL 03/07/2025 4:29 AM [facility] ([facility]) BUN/Creatinine Ratio 27.0 02/15 4:29 AM [facility] ([facility]) Glucose 92 70 - 100 mg/dL 03/07/2025 4:29 AM [facility] ([facility]) Calcium 8.6 8.6 - 10.3 mg/dL 03/07/2025 4:29 AM T [facility] ([facility]) AST 24 13 - 39 U/L 03/07/2025 4:29 AM T [facility] ([facility]) ALT (SGPT) 13 7 - 52 U/L 03/07/2025 4:29 AM [facility] ([facility]) Alkaline Phosphatase 102 34 - 104 U/L 03/07/2025 4:29 AM T [facility] ([facility]) Total Protein 6.2 6.0 - 8.3 g/dL 03/07/2025 4:29 AM [facility] ([facility]) Albumin 3.0(L) 3.5 - 5.7 g/dL 03/07/2025 4:29 AM EDT [facility] ([facility]) Total Bilirubin 1.3(H) 0.3 - 1.0 mg/dL 03/07/2025 4:29 AM EDT [facility] ([facility]) eGFR 18.6(L) >60.0 mL/min/1. 73m*2 03/07/2025 4:29 AM EDT [facility] ([facility]) Comment:[facility] s estimated glomerular filtration rate (eGFR) [...] MD LAB BLOOD ORDERABLES Final Resul t [facility] ([facility]) [address] [place] [id number] * (ABNORMAL) Urinalysis (03/06/2025 12:19 PM EDT) Color, Urine Colorless Colorless, Yellow, Light-Yellow 03/06/2025 12:36 PM EDT [facility] ([facility]) Clarity, Urine Clear Clear 03/06/2025 12:36 PM EDT [facility] ([facility]) pH, Urine 6.5 5.0 - 8.0 pH 03/06/2025 12:36 PM EDT [facility] ([facility]) Leukocytes, Urine Negative Negative 03/06/2025 12:36 PM EDT [facility] ([facility]) Nitrite, Urine Negative Negative 03/06/2025 12:36 PM EDT [facility] ([facility]) Protein, Urine Negative Negative mg/dL 03/06/2025 12:36 PM EDT [facility] ([facility]) Glucose, Urine Normal Normal mg/dL 03/06/2025 12:36 PM EDT [facility] ([facility]) Bilirubin, Urine Negative Negative 03/06/2025 12:36 PM EDT [facility] ([facility]) Specific [place], Urine 1.007(L) 1.010 - 1.030 03/06/2025 12:36 PM EDT [facility] ([facility]) Ketones, Urine Negative Negative mg/dL 03/06/2025 12:36 PM EDT [facility] ([facility]) Blood, Urine Negative Negative 03/06/2025 12:36 PM EDT [facility] ([facility]) Urobilinogen, Urine Normal Normal mg/dL 03/06/2025 12:36 PM EDT [facility] ([facility]) Urine Urine specimen obtained by clean catch procedure / Unknown Non-blood Collection / Unknown 03/06/2025 12:19 PM EDT 03/06/2025 12:23 PM EDT Narrative [facility] ([facility]) - 03/06/2025 12:36 PM EDT Microscopics not performed on urines with negative chemical reactions unless requested on original order. us Carol Cohen MD LAB URINE ORDERABLES Fin al Result [facility] ([facility]) [address] [place] [address] * LIMITED ECHO (TTE) W/ LIMITED DOPPLER, COLOR FLOW AND IMAGING AGENT (03/06/2025 10:39 AM EDT) Anatomical Region Laterality Modality Other 03/06/2025 9:53 AM EDT Narrative 03/06/2025 4:26 PM EDT 1 1 [facility] Heart Station [address] [place] [address] [phone] (fax) Echocardiogram-[facility] Name: JOSÉ MIGUEL ANTONIO Study Date: 03/06/2025 09:53 AM B/P: 105 mmHg/70 mmHg HR: 98 bpm Date of : 1940 Location: [facility] Height: 72 in. Age: 85 year(s) Patient [...] effusion is seen. Procedure Staff Reading Group: [facility] Referring Physician: FRANCISCA SERRANO Crab Fisherman: Janice Draper RDCS, RVT, RN, BSN Ordering Physician: TROY AGOSTO Procedure Note Taylor Kendall MD - 03/06/2025 1 1 [facility] Heart Station [address] [place] [address] [phone] (fax) Echocardiogram-[facility] Name: JOSÉ MIGUEL ANTONIO Study Date: 03/06/2025 09:53 AM B/P: 105 mmHg/70 mmHg HR: 98 bpm Date of : 1940 Location: [facility] Height: 72 in. Age: 85 year(s) Patient [...] effusion is seen. Procedure Staff Reading Group: [facility] Referring Physician: FRANCISCA SERRANO Crab Fisherman: Janice Draper, ABBIE, RVT, RN, BSN Ordering Physician: TROY AGOSTO Troy Agosto MD CV ECHO PROCEDURES Final Result * (ABNORMAL) Iron and TIBC (03/06/2025 8:35 AM EDT) Iron 19(L) 50 - 212 ug/dL 03/06/2025 10:27 AM EDT [facility] ([facility]) TIBC 218(L) 250 - 450 ug/dL 03/06/2025 10:27 AM EDT [facility] ([facility]) Iron Saturation 9(L) 20 - 50 % 10:27 AM EDT [facility] ([facility]) UIBC 199.0 155.0 - 355.0 ug/dL 03/06/2025 10:27 AM EDT [facility] ([facility]) Blood Venous blood specimen / Unknown Venipuncture / Unknown 03/06/2025 8:35 AM EDT 03/06/2025 8:56 AM EDT Tino Borja MD LAB BLOOD ORDERABLES Final Resul t [facility] ([facility]) [address] [place], [place] [id number] * (ABNORMAL) PTH, intact (03/06/2025 8:35 AM EDT) PTH 134(H) 12 - 88 pg/mL 03/06/2025 10:55 AM EDT [facility] ([facility]) Blood Venous blood specimen / Unknown Venipuncture / Unknown 03/06/2025 8:35 AM EDT 03/06/2025 8:56 AM EDT us Tino Borja MD LAB BLOOD ORDERABLES Final Resul t Performing Organization Address [facility] Co de Phone Number [facility] ([facility]) [address] [place] [address] * Ferritin (03/06/2025 8:35 AM EDT) Ferritin 141.0 24.0 - 336.0 ng/mL 03/06/2025 10:55 AM EDT [facility] ([facility]) Blood Venous blood specimen / Unknown Venipuncture / Unknown 03/06/2025 8:35 AM EDT 03/06/2025 8:56 AM EDT us Tino Borja MD LAB BLOOD ORDERABLES Final Resul t Performing Organization Address [facility] Co de Phone Number [facility] ([facility]) [address] [place], [place] [id number] * TSH3 Reflex to FT4 (03/05/2025 11:19 PM EDT) TSH 1.69 0.34 - 5.60 mIU/L 03/06/2025 12:11 AM EDT [facility] ([facility]) Blood Venous blood specimen / Unknown Venipuncture / Unknown 03/05/2025 11:19 PM EDT 03/05/2025 11:26 PM EDT us Carol Cohen MD LAB BLOOD ORDERABLES Fin al Result Performing Organization Address City/[facility]/ZIP Co de Phone Number [facility] ([facility]) [address] [place], [place] [phone] * XR chest 1 view (03/05/2025 10:33 [...] pneumothorax Procedure Note Araceli Fuller MD - 03/06/2025 XR CHEST 1 VIEW 03/05/2025 10:01 PM [...] * (ABNORMAL) Phosphorus (03/05/2025 9:48 PM EDT) Pathologist [facility] Phosphorus 5.9(H) 2.5 - 5.0 mg/dL 03/05/2025 10:31 PM EDT [facility] ([facility]) Blood Venous blood specimen / Unknown Venipuncture / Unknown 03/05/2025 9:48 PM EDT 03/05/2025 9:59 PM EDT Carol Cohen MD LAB BLOOD ORDERABLES Fin al Result [facility] ([facility]) [address] [place] [address] * (ABNORMAL) B-type natriuretic peptide (03/05/2025 9:48 PM EDT) BNP 4,437(H) 0 - 100 pg/mL 03/05/2025 10:30 PM EDT [facility] ([facility]) Blood Venous blood specimen / Unknown Venipuncture / Unknown 03/05/2025 9:48 PM EDT 03/05/2025 9:59 PM EDT us Carol Cohen MD LAB BLOOD ORDERABLES Fin al Result [facility] ([facility]) [address] [place], [place] [id number] * Hemoglobin A1c (10/04/2024 3:08 AM EST) Hemoglobin A1C 5.6 4.0 - 6.0 % 10/05/2024 11:29 AM EST [facility] ([facility]) Estimated Average Glucose 114 mg/dL 10/05/2024 11:29 AM EST [facility] ([facility]) Blood Venous blood specimen / Unknown Arterial Line / Unknown 10/04/2024 3:08 AM EST 10/04/2024 3:56 AM EST us Chaim Cabrera MD LAB BLOOD ORDERABLES Final Resu lt Performing Organization Address City/[facility]/ZIP Co de Phone Number [facility] ([facility]) [address] [place] [address] from Last 3 Months or Most Recently [...] 1:34 PM 09/29/2023 8:52 PM Care Teams Premises Technician Relationship Specialty Start Date End Date Francisca Serrano MD [address] [place], [place] [id number] [place] [address] PCP - General 05/16/22
--- OUTSIDE RECORDS SUMMARY | 2025-04-22 13:42 | XMS_ITS ---
Author Organization [facility] Address [address] [place] [address] Care Team Providers Care Steerer Name Role Phone Samm Serrano MD Primary Care Provider [phone] Active Problems Problem Noted Date Diagnosed Date [...] PT 0.93 with normal TBI of 0.88 MAREVL on the left side showed DP 0.81 [...] disease invo lving coronary bypass graft of [place] heart 05/26/2022 Chronic systolic heart failure 05/26/2022 NSVT (nonsustained ventricular tachycardia) 05/17 Old [place] (myocardial infarction) 05/26/2022 Mitral valve insufficiency 05/26/2022 [...] get clearance to take Viagra through his terminologist. Both and patient are where the most contact terminologist prior to taking the medication. Viagra 1/2 [...] 2014. Subsequent biopsy December 2018 2 course [place] 3 + 4 equal 7. Right side. [...] Referral to be made -per patient choice [facility]. 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 Plan: Aggressive risk factor management. See CAD section. Sweating 11/17/2012 10/10/2023 Overview (10/10/2023): History: Developed cold sweat ~ 1100 at rest during taoist on 11/16. There was no nausea, chest pain, jaw pain, shortness of breath, or lightheadedness. This is similar to his symptoms when patient had STEMI in 04/2012. Patient presented to [facility] at 1200. EKG showed q waves in III, aVF; ST depression in I, aVL; ST elevation V3, V4, V5. [facility] his EKG showed resolution of ST elevation in V4 and V5. His troponin 0.367 at OSH (? Troponin I); but has been negative at [facility] Main [facility]. Assessment: Possible atypical manifestations type II demand ischemia in setting of recent dehydration from profuse diarrhea or residual symptoms of recent illness. Cold sweat resolved after arrival. Plan: Trend cardiac enzymes, monitor clinical symptoms, and serial EKG's as needed. If continue to worsen clinically, would proceed to [facility]. S/P CABG (coronary artery bypass graft) 06/17/20 [...] (03/15/2025 4:04 PM EDT): Blood culture from [facility] reported Stenotrophomonas maltophilia Per ID blood cultures likely contaminant and antibiotics being discontinued Assessment & Plan (03/14/2025 11:12 AM EDT): Blood culture from [facility] reported Stenotrophomonas maltophilia Per ID blood cultures likely contaminant and antibiotics being discontinued Assessment & Plan (03/13/2025 12:15 PM EDT): Blood culture from [facility] reported Stenotrophomonas maltophilia Per ID blood cultures likely contaminant and antibiotics being discontinued Assessment & Plan (03/12/2025 4:29 PM EDT): Blood culture from [facility] reported Stenotrophomonas maltophilia Per ID blood cultures likely contaminant and antibiotics being discontinued Assessment & Plan (03/11/2025 2:32 PM EDT): Blood culture from [facility] reported Stenotrophomonas maltophilia Per ID blood cultures likely contaminant and antibiotics being discontinued Assessment & Plan (03/10/2025 3:11 PM EDT): Blood culture from [facility] reported Stenotrophomonas maltophilia Per ID blood cultures likely contaminant and antibiotics being discontinued Assessment & Plan (03/09/2025 1:05 PM EDT): Blood culture from [facility] reported Stenotrophomonas maltophilia Per ID blood cultures [...] likely will need right heart cath with [place] catheter as well as inotropic agent based [...]
--- NOTE | 2025-04-22 13:43 | XR_ITS ---
The [address] [address] Patient Name: LANDEN ROTH MRN: [id number] date: 1940 Sex: M Assigned Patient Location: [facility] Current Patient Location: [facility] Accession/Order Number: [id number] Exam Date: 04/22/2025 14:10 Report Date: 04/22/2025 14:11 At the request of: JASKARAN ALVAREZ APRN Procedure: XR chest 2V Chest 2 views CLINICAL HISTORY: Edema COMPARISON: Chest 04/14/2025 FINDINGS: Cardiomegaly with fibular device, sternotomy wires and mitral valve clip. Small left-sided pleural effusion is unchanged. No new consolidation pneumothorax or free air. XR/XR chest 2V IMPRESSION: NO SIGNIFICANT CHANGE IN CHEST FINDINGS. Impression dictated by: Vicente Sanchez Jr., D.O. 04/22/2025 2:11 PM Dictation Location: [place] [address] Electronically authenticated by: [id number] Y Date: 04/22/2025 14:11
--- OUTSIDE RECORDS SUMMARY | 2025-04-22 13:43 | XMS_ITS | Patient Health Record ---
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) Active confirmed Problem Malignant tumor of prostate (412946092) Prostate CA (C61) Active confirmed Vital Signs Blood pressure diastolic 60 mm Hg 08/04/2024 Weight-kg 79.15 kg 08/04/2024 Height 73 in 08/04/2024 Blood pressure systolic 98 mm Hg 08/04/2024 Weight 174.5 lbs 08/04/2024 BMI 23.02 kg/m2 08/04/2024 Encounters Encounter Location Date Provider Diagnosis 06 [facility] [address] [place] [address] 09/25/2024 Laila Marina 06 [facility] [address] [place] [address] 01/20/2025 Laila Marina 06 [facility] [address] [place] [address] 09/27/2024 Laila Marina 06 [facility] [address] [place] [address] 09/27/2024 Laila Marina 06 [facility] [address] [place] [address] 09/28/2024 Laila Marina 06 [facility] [address] [place] [address] 11/25/2024 Laila Marina 06 [facility] [address] [place] [address] 01/26/2025 Laila Marina 06 [facility] [address] [place] [address] 08/04/2024 Laila Marina Autoimmune thyroiditis E06.3 Assessments [...] 08/03/2025 03:00:00 PM, [address] [place], [address], Insurance Providers Payer Name Payer Address Payer Phone Subscriber Number Group Number Insured Name Patient Relationship to Insured Coverage Start Date Coverage End Date MEDICARE PART B [address] [address] [id number] José Miguel Antonio Self - patient is the insured [facility] - MEDICARE SUPPLEMEN T [address] [place] [id number] José Miguel Antonio Self - patient is the insured [facility] [address] [address] [facility] [place] [address] [id number] José Miguel Antonio Self - patient is the insured Medical (General) History Medical History History ICD Code Hypothyroidism heart disease high blood pressure chronic kidney disease prostate cancer Surgical History Surgery Date(Month/Year) defibrillator/pacemaker placement 2018 heart cath 02/2019 carotid endarterectomy-right 05/2012 triple bypass 2011 Hospitalization History Reason Date(Month/Year) water retention 07/2024 stroke 08/2021 heart attack 2011
--- OUTSIDE RECORDS SUMMARY | 2025-04-22 13:43 | XMS_ITS | Encounter Summary ---
Author Organization [facility] [employer] Address [id number] [address] [place] [address] Care Team Providers Care Oil Well Services Superintendent Name Role Phone Samm Serrano MD Primary Care Provider +-2 Encounter Details Date Type Department Care Team (Late st Contact Info) Description 07/14/2021 Orders Only [facility] [address] [place] [phone] Arelis Callejas Prostate cancer ([facility]) Social History Tobacco Use Types Packs/Day Years [...] prostate documented in this encounter Care Teams Oil Well Services Superintendent Relationship Specialty Start Date End Date Samm Serrano MD PCP - General Family Medicine 02/26/24 documented as of this encounter
--- OUTSIDE RECORDS SUMMARY | 2025-04-22 13:43 | XMS_ITS | Encounter Summary ---
Author Organization [facility] Address [address] [place] [address] Care Team Providers Care Re Recording Mixer Name Role Phone Samm Serrano MD Primary Care Provider [phone] Reason for Visit * Reason Comments Med Refill Encounter Details Date Type Department Care Team (Late st Contact Info) Description 07/05/2023 Refill [facility] Heart at [facility] [address] [place] [address] Ozzie Crain MD [address] [facility] [address] [facility] [place] [address] Coronary artery disease, unspecified vessel or lesion type, unspecified whether angina present, unspecified whether [place] or transplanted heart; Carotid stenosis, asymptomatic, left; 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 ([facility]) Social History Tobacco Use Types [...] Description 04/26/2025 2:30 PM EDT Office Visit [facility] Heart at [facility] [address] [place] [address] Ozzie Crain MD [address] [facility] [place] [address] documented as of this encounter Visit Diagnoses Diagnosis Coronary artery disease, unspecified vessel or lesion type, unspecified whether angina present, unspecified whether [place] or transplanted heart Carotid stenosis, asymptomatic, left 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
--- OUTSIDE RECORDS SUMMARY | 2025-04-22 13:45 | XMS_ITS | Encounter Summary ---
Author Organization [facility] Address [address] [place] [address] Care Team Providers Care Furnace Repairer Name Role Phone Samm Serrano MD Primary Care Provider +-4 Tom Gonzalez Unavailable [phone] Andreas Pierre MD Unavailable Virgil Carrillo MD Unavailable Jethro Mendoza MD Unavailable Isaías Kinney MD Unavailable [phone] Source Comments In the event this information is protected by the Federal Confidentiality of Alcohol and Drug AbusePatient Records regulations: The Federal rules restrict any use of the information to criminally investigate or prosecute any alcohol or drug abuse patient.[facility] Encounter Details Date Type Department Care Team (Late st Contact Info) Description 08/06/2024 Patient Msg Cardiology [address] [place], [place] [phone] Provider, Juliann Marvel Social History Tobacco Use Types Packs/Day Years Used Date Smoking Tobacco: Former Cigarettes 1 10 0 04/28/1972 - 04/28/1982 Pipe Passive Smoke Exposure: Never Smokeless Tobacco: Never Alcohol Use Standard Drinks/Week Comments Yes 0 (1 standard drink = 0.6 oz pur e alcohol) rarely [facility] Utilities Answer Date Recorded In the [...] time in the past 12 m [facility] [place], were you homeless or living in a jail (including now)? Yes 07/22/2024 Area Deprivation Index Answer Date Rich rded National Score (1-100), lower number is lower ri sk 52 02/05/2024 State Score (1-10), lower number is lower risk 3 02/05/2024 Data from: https://www.neighborhoodatlas.medicine.[facility]/. Last address used for calculation [address] 02/05/2024 Sex and [...] 06/30/2025 10:00 AM EDT Office Visit Cardiology [address] [place] [address] Isaías Kinney MD [address] [place] [address] DX: Chronic diastolic heart failure 09/20/2025 8:15 AM EST Procedure Cardiology [address] [place] [address] Dx. Atherosclerotic heart disease of [place] coronary artery with other forms of angina pectoris 09/20/2025 9:00 AM EST Appointment Cardiology [address] [place], [place] [phone] Dx. Atherosclerotic heart disease of [place]re[place] coronary artery with other forms of angina pectoris 09/20/2025 9:45 AM EST Office Visit Cardiology [address] [place] [address] Nj Wei MD [address] [place] [address] Dx. Atherosclerotic heart disease of [place]reafski coronary artery with other forms of angina pectoris documented as of this encounter Goals Goal Patient Goal Type Associated Problems Recent Progress Patient-Stated? Author Blood Pressure < 130/80 Blood Pressure 134/63( 025 3:00 PM EDT) Lidia Soto, ARIES documented as of this encounter Visit Diagnoses Not on filedocumented in this encounter Care Teams Furnace Repairer Relationship Specialty Start Date End Date Samm Serrano MD PCP - General Family Medicine 05/30/12 Tom Gonzalez [address] [place] [address] Primary Staff Physician Cardiology 12/02/18 Andreas Pierre MD [address] [place] [address] Primary Staff Physician Cardiology 04/26/23 Virgil Carrillo MD [address] [place] [address] Primary Staff Physician Cardiology 10/29/23 Jethro Mendoza MD [address] [place] [address] Primary Staff Physician Cardiology 12/26/23 Isaías Kinney MD [address] [place] [address] Primary Staff Physician Cardiology 01/10/24 documented as of this encounter
--- OUTSIDE RECORDS SUMMARY | 2025-04-22 13:45 | XMS_ITS | Encounter Summary ---
Author Organization [facility] Address [address] [place] [address] Care Team Providers Care Tobacco Grader Name Role Phone Samm Serrano MD Primary Care Provider +-4 Tom Gonzalez Unavailable [phone] Andreas Pierre MD Unavailable Virgil Carrillo MD Unavailable Jethro Mendoza MD Unavailable Isaías Kinney MD Unavailable [phone] Source Comments In the event this information is protected by the Federal Confidentiality of Alcohol and Drug AbusePatient Records regulations: The Federal rules restrict any use of the information to criminally investigate or prosecute any alcohol or drug abuse patient.[facility] Encounter Details Date Type Department Care Team (Late st Contact Info) Description 07/13/2024 Get Medical Advice Cardiology [address] [place], [place] [phone] Isaías Kinney MD [address] [place] [address] Water retention Social History Tobacco Use Types Packs/Day Years Used Date Smoking Tobacco: Former Cigarettes 1 10 0 04/28/1972 - 04/28/1982 Pipe Passive Smoke Exposure: Never Smokeless Tobacco: Never Alcohol Use Standard Drinks/Week Comments Yes 0 (1 standard drink = 0.6 oz pur e alcohol) rarely [facility] Utilities Answer Date Recorded In the past [...] place to sleep or slept in a retirement (including now)? No 03/02/2024 Housing Stability Vital Sign Answer Akbar e Recorded In the last 12 months, was t here a time when you were not able to pay the mortgage or rent on time? No 05/11/2024 In the past 12 months, how m any times have you moved where you were living? 1 05/11/2024 At any time in the past 12 m [facility], were you homeless or living in a retirement (including now)? No 05/11/2024 Area Deprivation Index Answer Date Rich rded National Score (1-100), lower number is lower ri sk 52 02/05/2024 State Score (1-10), lower number is lower risk 3 02/05/2024 Data from: https://www.neighborhoodatlas.medicine.[facility].edu/. Last address used for calculation [address] [place] [address] [address] 02/05/2024 Sex and Gender Information [...] 06/30/2025 10:00 AM EDT Office Visit Cardiology [address] [place] [address] Isaías Kinney MD [address] [place], [place] [phone] DX: Chronic diastolic heart failure 09/20/2025 8:15 AM EST Procedure Cardiology [address] [place] [address] Dx. 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 Author Blood Pressure < 130/80 Blood Pressure 134/63( 025 3:00 PM EDT) No Lidia Lo, ARIES documented as of this encounter Visit Diagnoses Not on filedocumented in this encounter Care Teams Tobacco Grader Relationship Specialty Start Date End Date Samm Serrano MD PCP - General Family Medicine 05/30/12 Tom Gonzalez [address] [place] [address] Primary Staff Physician Cardiology 12/02/18 Andreas Pierre MD [address] [place] [address] Primary Staff Physician Cardiology 04/26/23 Virgil Carrillo MD [facility] [place] [phone] Primary Staff Physician Cardiology 10/29/23 [place] [address] [place] [address] Primary Staff Physician Cardiology 12/26/23 Isaías Kinney MD [address] [place] [phone] Primary Staff Physician Cardiology 01/10/24 documented as of this encounter
--- OUTSIDE RECORDS SUMMARY | 2025-04-22 13:45 | XMS_ITS | Encounter Summary ---
Author Organization [facility] Address [address] [place] [address] Care Team Providers Care Travertine Installer Name Role Phone Samm Serrano MD Primary Care Provider +-4 Tom Gonzalez Unavailable [phone] Andreas Pierre MD Unavailable Virgil Carrillo MD Unavailable Jethro Mendoza MD Unavailable Isaías Kinney MD Unavailable [phone] Source Comments In the event this information is protected by the Federal Confidentiality of Alcohol and Drug AbusePatient Records regulations: The Federal rules restrict any use of the information to criminally investigate or prosecute any alcohol or drug abuse patient.[facility] Encounter Details Date Type Department Care Team (Late st Contact Info) Description 05/23/2024 Get Medical Advice [facility] [address] [place] [address] Provider, Dirk out of pocket expenses Social History Tobacco Use Types Packs/Day Years Used Date Smoking Tobacco: Former Cigarettes 1 10 0 04/28/1972 - 04/28/1982 Pipe Passive Smoke Exposure: Never Smokeless Tobacco: Never Alcohol Use Standard Drinks/Week Comments Yes 0 (1 standard drink = 0.6 oz pur e alcohol) rarely [facility] Utilities Answer Date Recorded In the past 12 months has th e [employer], gas, oil, or water company threatened to [...] time in the past 12 m [employer] [place], were you homeless or living in a senior living (including now)? No 05/11/2024 Area Deprivation Index Answer Date Rich rded National Score (1-100), lower number is lower ri sk 52 02/05/2024 State Score (1-10), lower number is lower risk 3 02/05/2024 Data from: https://www.neighborhoodatlas.medicine.[facility]/. 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 Author Blood Pressure < 130/80 Blood Pressure 134/63( 025 3:00 PM EDT) No Lidia Lo, ARIES documented as of this encounter Visit Diagnoses Not on filedocumented in this encounter Care Teams Travertine Installer Relationship Specialty Start Date End Date Samm Serrano MD PCP - General Family Medicine 05/30/12 Tom Gonzalez [address] [place] [address] Primary Staff Physician Cardiology 12/02/18 Andreas Pierre MD [address] [place] [address] Primary Staff Physician Cardiology 04/26/23 Virgil Carrillo MD [address] [place] [address] Primary Staff Physician Cardiology 10/29/23 Jethro Mendoza MD [address] [place] [address] Primary Staff Physician Cardiology 12/26/23 Isaías Kinney MD [address] [place] [address] Primary Staff Physician Cardiology 01/10/24 documented as of this encounter
--- OUTSIDE RECORDS SUMMARY | 2025-04-22 13:45 | XMS_ITS | Encounter Summary ---
Author Organization [facility] Address [address] [place] [address] Care Team Providers Care Pole Frame Construction Worker Name Role Phone Samm Serrano MD Primary Care Provider +-4 Tom Gonzalez Unavailable [phone] Andreas Pierre MD Unavailable Virgil Carrillo MD Unavailable Jethro Mendoza MD Unavailable Isaías Kinney MD Unavailable [phone] Source Comments In the event this information is protected by the Federal Confidentiality of Alcohol and Drug AbusePatient Records regulations: The Federal rules restrict any use of the information to criminally investigate or prosecute any alcohol or drug abuse patient.[facility] Encounter Details Date Type Department Care Team (Late st Contact Info) Description 07/10/2024 Get Medical Advice Cardiology [address] [place], [place] [phone] Isaías Kinney MD [address] [place] [address] Medication Question Social History Tobacco Use Types Packs/Day Years Used Date Smoking Tobacco: Former Cigarettes 1 10 0 04/28/1972 - 04/28/1982 Pipe Passive Smoke Exposure: Never Smokeless Tobacco: Never Alcohol Use Standard Drinks/Week Comments Yes 0 (1 standard drink = 0.6 oz pur e alcohol) rarely [facility] Utilities Answer Date Recorded In the past 12 months has th e [employer], gas, oil, or water company threatened to [...] place to sleep or slept in a long term (including now)? No 03/02/2024 Housing Stability Vital [...] were you homeless or living in a long term (including now)? No 05/11/2024 Area Deprivation Index Answer Date Rich rded National Score (1-100), lower number is lower ri sk 52 02/05/2024 State Score (1-10), lower number is lower risk 3 02/05/2024 Data from: https://www.neighborhoodatlas.medicine.[facility].edu/. Last address used for calculation [address] [place] [address] [address] 02/05/2024 Sex and Gender Information [...] 06/30/2025 10:00 AM EDT Office Visit Cardiology [address] [place] [address] Isaías Kinney MD [address] [place], [place] [phone] DX: Chronic diastolic heart failure 09/20/2025 8:15 AM EST Procedure Cardiology [address] [place] [address] Dx. Atherosclerotic heart disease of [place] coronary artery with other forms of angina pectoris 09/20/2025 9:00 AM EST Appointment Cardiology [address] [place] [address] Dx. Atherosclerotic heart disease of [place] coronary artery with other forms of angina pectoris 09/20/2025 9:45 AM EST Office Visit Cardiology [address] [place] [address] Nj Wei MD [address] [place] [address] Dx. Atherosclerotic heart disease of [place]qu[place] coronary artery with other forms of angina pectoris documented as of this encounter Goals Goal Patient Goal Type Associated Problems Recent Progress Patient-Stated? Author Blood Pressure < 130/80 Blood Pressure 134/63( 025 3:00 PM EDT) No Lidia Lo, ARIES documented as of this encounter Visit Diagnoses Not on filedocumented in this encounter Care Teams Pole Frame Construction Worker Relationship Specialty Start Date End Date Samm Serrano MD PCP - General Family Medicine 05/30/12 Tom Gonzalez [address] [place] [address] Primary Staff Physician Cardiology 12/02/18 Andreas Pierre MD [address] [place] [address] Primary Staff Physician Cardiology 04/26/23 Virgil Carrillo MD [facility] [place] [phone] Primary Staff Physician Cardiology 10/29/23 [place] [address] [place] [address] Primary Staff Physician Cardiology 12/26/23 Isaías Kinney MD [address] [place] [phone] Primary Staff Physician Cardiology 01/10/24 documented as of this encounter
--- OUTSIDE RECORDS SUMMARY | 2025-04-22 13:45 | XMS_ITS | Encounter Summary ---
Author Organization [facility] Address [address] [place] [address] Care Team Providers Care Cold Strip Feeder Name Role Phone Samm Serrano MD Primary Care Provider +-4 Tom Gonzalez Unavailable [phone] Andreas Pierre MD Unavailable Virgil Carrillo MD Unavailable Jethro Mendoza MD Unavailable Isaías Kinney MD Unavailable [phone] Source Comments In the event this information is protected by the Federal Confidentiality of Alcohol and Drug AbusePatient Records regulations: The Federal rules restrict any use of the information to criminally investigate or prosecute any alcohol or drug abuse patient.[facility] Encounter Details Date Type Department Care Team (Late st Contact Info) Description 08/14/2024 Patient Msg Cardiology [address] [place], [place] [id number] Isaías Kinney MD [address] [place] [address] Social History Tobacco Use Types Packs/Day Years Used Date Smoking Tobacco: Former Cigarettes 1 10 0 04/28/1972 - 04/28/1982 Pipe Passive Smoke Exposure: Never Smokeless Tobacco: Never Alcohol Use Standard Drinks/Week Comments Yes 0 (1 standard drink = 0.6 oz pur e alcohol) rarely [facility] Utilities Answer Date Recorded In the past 12 months has th e [employer], gas, oil, or water [employer] threatened to shut off services in your [...] any time in the past 12 m [facility], were you homeless or living in a halfway (including now)? Yes 07/22/2024 Area Deprivation Index Answer Date Rich rded National Score (1-100), lower number is lower ri sk 52 02/05/2024 State Score (1-10), lower number is lower risk 3 02/05/2024 Data from: https://www.neighborhoodatlas.medicine.[facility].edu/. Last address used for calculation [address] 02/05/2024 Sex and Gender [...] 06/30/2025 10:00 AM EDT Office Visit Cardiology [address] [place] [address] Isaías Kinney MD [address] [place] [address] DX: Chronic diastolic heart failure 09/20/2025 8:15 AM EST Procedure Cardiology [address] [place] [address] Dx. Atherosclerotic heart disease of [place] coronary artery with other forms of angina pectoris 09/20/2025 9:00 AM EST Appointment Cardiology [address] [place] [address] Dx. Atherosclerotic heart disease of [place] coronary artery with other forms of angina pectoris 09/20/2025 9:45 AM EST Office Visit Cardiology [address] [place] [address] Nj Wei MD [address] [place] [address] Dx. Atherosclerotic heart disease of [place] [...] on filedocumented in this encounter Care Teams Cold Strip Feeder Relationship Specialty Start Date End Date Samm Serrano MD PCP - General Family Medicine 05/30/12 Tom Gonzalez [address] [place] [address] Primary Staff Physician Cardiology 12/02/18 Andreas Pierre MD [address] [place] [phone] Primary Staff Physician Cardiology 04/26/23 Virgil Carrillo MD [address] [place] [address] Primary Staff Physician Cardiology 10/29/23 Jethro Mendoza MD [address] [place] [address] Primary Staff Physician Cardiology 12/26/23 Isaías Kinney MD [address] [place] [address] Primary Staff Physician Cardiology 01/10/24 documented as of this encounter
--- OUTSIDE RECORDS SUMMARY | 2025-04-22 13:45 | XMS_ITS | Encounter Summary ---
Author Organization [facility] Address [address] [place] [address] Care Team Providers Care Distributor Operator Name Role Phone Samm Serrano MD Primary Care Provider +-4 Tom Gonzalez Unavailable [phone] Andreas Pierre MD Unavailable Virgil Carrillo MD Unavailable Jethro Mendoza MD Unavailable Isaías Kinney MD Unavailable [phone] Source Comments In the event this information is protected by the Federal Confidentiality of Alcohol and Drug AbusePatient Records regulations: The Federal rules restrict any use of the information to criminally investigate or prosecute any alcohol or drug abuse patient.[facility] Encounter Details Date Type Department Care Team (Late st Contact Info) Description 07/22/2024 Patient [facility] HB-[address] [place] [address] Tessa Zuniga RPh At your next appointment, choose [facility]. Social History Tobacco Use Types Packs/Day Years Used Date Smoking Tobacco: Former Cigarettes 1 10 0 04/28/1972 - 04/28/1982 Pipe Passive Smoke Exposure: Never Smokeless Tobacco: Never Alcohol Use Standard Drinks/Week Comments Yes 0 (1 standard drink = 0.6 oz pur e alcohol) rarely [facility] Utilities Answer Date Recorded In the past 12 months has e [employer], gas, oil, or water company threatened to [...] in the past [address] [facility], were you homeless or living in a fpc (including now)? Yes 07/22/2024 Area Deprivation Index Answer Date Rich rded National Score (1-100), lower number is lower ri sk 52 02/05/2024 State Score (1-10), lower number is lower risk 3 02/05/2024 Data from: https://www.neighborhoodatlas.medicine.[facility].edu/. Last address used for calculation [address] 02/05/2024 Sex and Gender Information [...] 10:00 AM EDT Office Visit Cardiology [address] [place] [address] Isaías Kinney MD [address] [place] [address] DX: Chronic diastolic heart failure 09/20/2025 8:15 AM EST Procedure Cardiology [address] [place] [address] Dx. Atherosclerotic heart disease of [place] coronary artery with other forms of angina pectoris 09/20/2025 9:00 AM EST Appointment Cardiology [address] [place], [place] [phone] Dx. Atherosclerotic heart disease of [place] coronary artery with other forms of angina pectoris 09/20/2025 9:45 AM EST Office Visit Cardiology [address] [place] [address] Nj Wei MD [address] [place] [phone] Dx. Atherosclerotic heart disease of [place] coronary artery with other forms of angina pectoris documented as of this encounter Goals Goal Patient Goal Type Associated Problems Recent Progress Patient-Stated? Author Blood Pressure < 130/80 Blood Pressure 134/63( 025 3:00 PM EDT) No Lidia Lo, ARIES documented as of this encounter Visit Diagnoses Not on filedocumented in this encounter Care Teams Distributor Operator Relationship Specialty Start Date End Date Samm Serrano MD PCP - General Family Medicine 05/30/12 Tom Gonzalez [address] [place] [address] Primary Staff Physician Cardiology 12/02/18 Andreas Pierre MD [address] [place] [address] Primary Staff Physician Cardiology 04/26/23 Virgil Carrillo MD [address] [place] [address] Primary Staff Physician Cardiology 10/29/23 Jethro Mendoza MD [address] [place] [address] Primary Staff Physician Cardiology 12/26/23 Isaías Kinney MD [address] [place] [address] Primary Staff Physician Cardiology 01/10/24 documented as of this encounter
--- OUTSIDE RECORDS SUMMARY | 2025-04-22 13:45 | XMS_ITS | Encounter Summary ---
Author Organization [facility] Address [address] [place] [address] Care Team Providers Care Airport Engineer Name Role Phone Samm Serrano MD Primary Care Provider +-4 Tom Gonzalez Unavailable [phone] Andreas Pierre MD Unavailable Virgil Carrillo MD Unavailable Jethro Mendoza MD Unavailable Isaías Kniney MD Unavailable [phone] Source Comments In the event this information is protected by the Federal Confidentiality of Alcohol and Drug AbusePatient Records regulations: The Federal rules restrict any use of the information to criminally investigate or prosecute any alcohol or drug abuse patient.[facility] Encounter Details Date Type Department Care Team (Late st Contact Info) Description 08/03/2024 Get Medical Advice Cardiology [address] [place], [place] [phone] Isaías Kinney MD [address] [place] [address] Hospital Stay Follow Up Social History Tobacco Use Types Packs/Day Years Used Date Smoking Tobacco: Former Cigarettes 1 10 0 04/28/1972 - 04/28/1982 Pipe Passive Smoke Exposure: Never Smokeless Tobacco: Never Alcohol Use Standard Drinks/Week Comments Yes 0 (1 standard drink = 0.6 oz pur e alcohol) rarely [facility] Utilities Answer Date Recorded In the [...] is lower risk 3 02/05/2024 Data from: https://www.neighborhoodatlas.medicine.[facility].edu/. Last address used for calculation [address] [place] [address] Rd [address] 02/05/2024 Sex and Gender Information [...] 06/30/2025 10:00 AM EDT Office Visit Cardiology [address] [place] [address] Isaías Kinney MD [address] [place], [place] [phone] DX: Chronic diastolic heart failure 09/20/2025 8:15 AM EST Procedure Cardiology [address] [place] [address] Dx. Atherosclerotic heart disease of [place] coronary artery with other forms of angina pectoris 09/20/2025 9:00 AM EST Appointment Cardiology [address] [place] [address] Dx. Atherosclerotic heart disease of [place] coronary artery with other forms of angina pectoris 09/20/2025 9:45 AM EST Office Visit Cardiology [address] [place] [address] Nj Wei MD [address] [place], [place] [phone] Dx. Atherosclerotic heart disease of [place] coronary artery with other forms of angina pectoris documented as of this encounter Goals Goal Patient Goal Type Associated Problems Recent Progress Patient-Stated? Author Blood Pressure < 130/80 Blood Pressure 134/63( 025 3:00 PM EDT) No Lidia Lo, ARIES documented as of this encounter Visit Diagnoses Not on filedocumented in this encounter Care Teams Airport Engineer Relationship Specialty Start Date End Date Samm Serrano MD PCP - General Family Medicine 05/30/12 Tom Gonzalez [address] [place] [address] Primary Staff Physician Cardiology 12/02/18 Andreas Pierre MD [address] [place] [address] Primary Staff Physician Cardiology 04/26/23 Virgil Carrillo MD [address] [place] [phone] Primary Staff Physician Cardiology 10/29/23 Jethro Mendoza MD [address] [place] [address] Primary Staff Physician Cardiology 12/26/23 Isaías Kinney MD [address] [place] [phone] Primary Staff Physician Cardiology 01/10/24 documented as of this encounter
--- OUTSIDE RECORDS SUMMARY | 2025-04-22 13:45 | XMS_ITS | Encounter Summary ---
Author Organization [facility] Address [address] [place] [address] Care Team Providers Care Event Set Up Specialist Name Role Phone Samm Serrano MD Primary Care Provider +-4 Tom Gonzalez Unavailable [phone] Andreas Pierre MD Unavailable Virgil Carrillo MD Unavailable Jethro Mendoza MD Unavailable Isaías Kinney MD Unavailable [phone] Source Comments In the event this information is protected by the Federal Confidentiality of Alcohol and Drug AbusePatient Records regulations: The Federal rules restrict any use of the information to criminally investigate or prosecute any alcohol or drug abuse patient.[facility] Reason for Visit * Reason Comments Follow Up Encounter Details Date Type Department Care Team (Late Contact Info) Description 08/17/2024 Telephone Cardiology [address] [place] [address] Isaías Kinney MD [address] [place] [address] Follow Up Social History Tobacco Use Types Packs/Day Years Used Date Smoking Tobacco: Former Cigarettes 1 10 0 04/28/1972 - 04/28/1982 Pipe Passive Smoke Exposure: Never Smokeless Tobacco: Never Alcohol Use Standard Drinks/Week Comments Yes 0 (1 standard drink = 0.6 oz pur e alcohol) rarely [facility] Utilities Answer Date Recorded In [...] in the past 12 m [facility], were you homeless or living in a group home (including now)? Yes 07/22/2024 Area Deprivation Index Answer Date Rich rded National Score (1-100), lower number is lower ri sk 52 02/05/2024 State Score (1-10), lower number is lower risk 3 02/05/2024 Data from: https://www.neighborhoodatlas.medicine.[facility].edu/. Last address used for calculation [address] [place] [address] Rd [address] 02/05/2024 Sex and Gender Information [...] rehab and have the order sent to [facility]. Shawanda Gomes RN August 17, 2024 2:46 PM * Telephone Encounter - Lindsay Ross - 08/17/2024 1:44 PM EST Patients daughter Charu called and wants you to know he is retaining water in his abs again. Has not gained weight and is doing the no eating again. Please call her at [phone]. Thank you, Lindsay documented in this encounter Plan of Treatment Upcoming Encounters Date Type Department Care Team (Latest Contact Info) Description 06/30/2025 10:00 AM EDT Office Visit Cardiology [address] [place] [address] Isaías Kinney MD [address] [place], [place] [phone] DX: Chronic diastolic heart failure 09/20/2025 8:15 AM EST Procedure Cardiology [address] [place] [address] Dx. Atherosclerotic heart disease of [place] coronary artery with other forms of angina pectoris 09/20/2025 9:00 AM EST Appointment Cardiology [address] [place] [address] Dx. Atherosclerotic heart disease of [place] coronary artery with other forms of angina pectoris 09/20/2025 9:45 AM EST Office Visit Cardiology [address] [place] [address] Nj Wei MD [address] [place] [address] Dx. Atherosclerotic heart disease of [place] coronary artery with other forms of angina pectoris documented as of this encounter Goals Goal Patient Goal Type Associated Problems Recent Progress Patient-Stated? Author Blood Pressure < 130/80 Blood Pressure 134/63( 025 3:00 PM EDT) Lidia Soto, ARIES documented as of this encounter Visit Diagnoses Not on filedocumented in this encounter Care Teams Event Set Up Specialist Relationship Specialty Start Date End Date Samm Serrano MD PCP - General Family Medicine 05/30/12 Tom Gonzalez [address] [place] [address] Primary Staff Physician Cardiology 12/02/18 Andreas Pierre MD [address] [place] [address] Primary Staff Physician Cardiology 04/26/23 Virgil Carrillo MD [address] [place] [address] Primary Staff Physician Cardiology 10/29/23 Jethro Mendoza MD [address] [place] [address] Primary Staff Physician Cardiology 12/26/23 Isaías Kinney MD [address] [place] [address] Primary Staff Physician Cardiology 01/10/24 documented as of this encounter
--- OUTSIDE RECORDS SUMMARY | 2025-04-22 13:45 | XMS_ITS | Encounter Summary ---
Author Organization [facility] Address [address] [place] [address] Care Team Providers Care Logging Equipment Operator Name Role Phone Samm Serrano MD Primary Care Provider +-4 Tom Gonzalez Unavailable [phone] Andreas Pierre MD Unavailable Virgil Carrillo MD Unavailable Jethro Mendoza MD Unavailable Isaías Kinney MD Unavailable [phone] Source Comments In the event this information is protected by the Federal Confidentiality of Alcohol and Drug AbusePatient Records regulations: The Federal rules restrict any use of the information to criminally investigate or prosecute any alcohol or drug abuse patient.[facility] Encounter Details Date Type Department Care Team (Late st Contact Info) Description 07/26/2024 Patient [facility] HB-[address] [place] [address] Tuyet Hernandez, [facility] Heart Failure Education Social History Tobacco Use Types Packs/Day Years Used Date Smoking Tobacco: Former Cigarettes 1 10 0 04/28/1972 - 04/28/1982 Pipe Passive Smoke Exposure: Never Smokeless Tobacco: Never Alcohol Use Standard Drinks/Week Comments Yes 0 (1 standard drink = 0.6 oz pur e alcohol) rarely [facility] Utilities Answer Date Recorded In the past 12 months has th e [employer], gas, oil, or water company threatened to [...] center.edu/. Last address used for calculation [address] 02/05/2024 Sex and Gender [...] 06/30/2025 10:00 AM EDT Office Visit Cardiology [address] [place] [address] Isaías Kinney MD [address] [place] [address] DX: Chronic diastolic heart failure 09/20/2025 8:15 AM EST Procedure Cardiology [address] [place] [address] Dx. Atherosclerotic heart disease of [place] coronary artery with other forms of angina pectoris 09/20/2025 9:00 AM EST Appointment Cardiology [address] [place], [place] [phone] Dx. Atherosclerotic heart disease of [place] coronary artery with other forms of angina pectoris 09/20/2025 9:45 AM EST Office Visit Cardiology [address] [place] [address] Nj Wei MD [address] [place] [phone] Dx. Atherosclerotic heart disease of [place] coronary artery with other forms of angina pectoris documented as of this encounter Goals Goal Patient Goal Type Associated Problems Recent Progress Patient-Stated? Author Blood Pressure < 130/80 Blood Pressure 134/63( 025 3:00 PM EDT) No Lidia Lo RN documented as of this encounter Visit Diagnoses Not on filedocumented in this encounter Care Teams Logging Equipment Operator Relationship Specialty Start Date End Date Samm Serrano MD PCP - General Family Medicine 05/30/12 Tom Gonzalez [address] [place] [address] Primary Staff Physician Cardiology 12/02/18 Andreas Pierre MD [address] [place] [address] Primary Staff Physician Cardiology 04/26/23 Virgil Carrillo MD [address] [place] [address] Primary Staff Physician Cardiology 10/29/23 Jethro Mendoza MD [address] [place] [address] Primary Staff Physician Cardiology 12/26/23 Isaías Kinney MD [address] [place] [address] Primary Staff Physician Cardiology 01/10/24 documented as of this encounter
--- OUTSIDE RECORDS SUMMARY | 2025-04-22 13:45 | XMS_ITS | Encounter Summary ---
Author Organization [facility] Address [address] [place] [address] Care Team Providers Care Wealth Management Advisor Name Role Phone Samm Serrano MD Primary Care Provider +-4 Tom Gonzalez Unavailable [phone] Andreas Pierre MD Unavailable Virgil Carrillo MD Unavailable Jethro Mendoza MD Unavailable Isaías Kinney MD Unavailable [phone] Source Comments In the event this information is protected by the Federal Confidentiality of Alcohol and Drug AbusePatient Records regulations: The Federal rules restrict any use of the information to criminally investigate or prosecute any alcohol or drug abuse patient.[facility] Encounter Details Date Type Department Care Team (Latest Contact Info) Description 06/14/2024 Get Medical Advice Cardiology [address] [place], [place] [phone] Isaías Kinney MD [address] [place] [address] Eliquis prescription Social History Tobacco Use Types Packs/Day Years Used Date Smoking Tobacco: Former Cigarettes 1 10 0 04/28/1972 - 04/28/1982 Pipe Passive Smoke Exposure: Never Smokeless Tobacco: Never Alcohol Use Standard Drinks/Week Comments Yes 0 (1 standard drink = 0.6 oz pur e alcohol) rarely [facility] Utilities Answer Date Recorded In [...] or living in a detention (including now)? No 05/11/2024 Area Deprivation Index Answer Date Rich rded National Score (1-100), lower number is lower ri sk 52 02/05/2024 State Score (1-10), lower number is lower risk 3 02/05/2024 Data from: https://www.neighborhoodatlas.medicine.[facility].edu/. Last address used for calculation [address] [place] [address] [address] 02/05/2024 Sex and Gender Information [...] 10:00 AM EDT Office Visit Cardiology [address] [place] [address] Isaías Kinney MD [address] [place], [place] [phone] DX: Chronic diastolic heart failure 09/20/2025 8:15 AM EST Procedure Cardiology [address] [place] [address] Dx. Atherosclerotic heart disease of [place] coronary artery with other forms of angina pectoris 09/20/2025 9:00 AM EST Appointment Cardiology [address] [place] [address] Dx. Atherosclerotic heart disease of [place] coronary artery with other forms of angina pectoris 09/20/2025 9:45 AM EST Office Visit Cardiology [address] [place] [address] Nj Wei MD [address] [place], [place] [phone] Dx. Atherosclerotic heart disease of [place] coronary artery with other forms of angina pectoris documented as of this encounter Goals Goal Patient Goal Type Associated Problems Recent Progress Patient-Stated? Author Blood Pressure < 130/80 Blood Pressure 134/63( 025 3:00 PM EDT) No Lidia Lo, ARIES documented as of this encounter Visit Diagnoses Not on filedocumented in this encounter Care Teams Wealth Management Advisor Relationship Specialty Start Date End Date Samm Serrano MD PCP - General Family Medicine 05/30/12 Tom Gonzalez [address] [place] [address] Primary Staff Physician Cardiology 12/02/18 Andreas Pierre MD [address] [place] [address] Primary Staff Physician Cardiology 04/26/23 Virgil Carrillo MD [address] [place] [phone] Primary Staff Physician Cardiology 10/29/23 Jethro Mendoza MD [address] [place] [address] Primary Staff Physician Cardiology 12/26/23 Isaías Kinney MD [address] [place] [phone] Primary Staff Physician Cardiology 01/10/24 documented as of this encounter
--- OUTSIDE RECORDS SUMMARY | 2025-04-22 13:45 | XMS_ITS ---
Author Organization [facility] Address [address] [place] [address] Care Team Providers Care School Community Relations Coordinator Name Role Phone Samm Serrano MD Primary Care Provider +-4 Tom Gonzalez Unavailable [phone] Andreas Pierre MD Unavailable Virgil Carrillo MD Unavailable Jethro Mendoza MD Unavailable Isaías Kinney MD Unavailable [phone] Active Problems Patient Care Coordination No [...] x3 (OTTO-LAD, SVG-PDA, SVG-OM) on 05/01/12 - [facility] 2021: patent OTTO-LAD and SVG-OM, occluded SVG-PDA [...] ICD shock Patient has been followed by Horticultural Agent Dr. Wei for frequent PVCs (burden 27% [...] failure at [facility] 09/12/24-09/16/24. During this hospitalization he was diuresed and discharged home. Remote device transmission then revealed that patient had an ICD shock for VT on 09/16/24 at 6:22 am. He was reportedly not on a continuous cardiac monitor technician at the time. He had a total of 21 VT events with rates 214-231 bpm, 20 of which were successfully treated with ATP x1 between 09/14/24-10/10/24. Dr. Wei recommended admission for further management of ventricular tachycardia and recurrent acute decompensated heart failure. HOSPITAL COURSE: The patient presented to the [facility] ED 09/17/24 after being notified of an [...] kidney disease, unspecified CKD stage, unspecified whether supervisor intermediates insulin use 04/26/2023 Stroke (cerebrum) 09/03/2022 Chronic systolic heart failure 09/03/2022 Carotid stenosis, asymptomatic, bilateral 2021 Syncope 03/18/2019 Sweating 11/17/2012 Overview (11/17/2012): History: Developed cold sweat ~ 1100 at rest during orthodox on 11/16. There was no nausea, chest pain, jaw pain, shortness of breath, or lightheadedness. This is similar to his symptoms when patient had STEMI in 04/2012. Patient presented to [facility] at 1200. EKG showed q waves in III, aVF; ST depression in I, aVL; ST elevation V3, V4, V5. On arrival to [facility] his EKG showed resolution of ST elevation in V4 and V5. His troponin 0.367 at OSH (? Troponin I); but has been negative at [facility] Main campus. Assessment: Possible atypical manifestations type II demand ischemia in setting of recent dehydration from profuse diarrhea or residual symptoms of recent illness. Cold sweat resolved after arrival. Plan: Trend cardiac enzymes, monitor clinical symptoms, and serial EKG's as needed. If continue to worsen clinically, would proceed to [facility]. Coronary artery disease invo lving coronary bypass graft of [place] heart without angina pectoris 11/17/2012 Acute on chronic systolic congestive heart failu re 11/17/2012 Overview (11/17/2012): History: Acute systolic heart failure in setting of NV in 04/2012 LVEF 42% by ECHO 06/2012 [...] LVEF 25%, NL RV. IABP placed in orthodontic lab technician preop. D/c'd 05/02. Postpump TTE: LVEF [...] complaints. Continue. Atherosclerotic heart diseas e of [place] coronary artery with other forms of angina [...] to [facility] Wide-complex tachycardia 04/28/2012 Overview (05/03/2012): Presented to OSH 04/28/12 in setting acute NV with wide complex tachycardia SVT versus VT. Given adenosine x2 without effect, diltiazem bolus and infusion with no effect. Spontaneous conversion to NSR. Had short run of wide complex tachycardia upon arrival to [facility] from CICU. Pre-op evaluation 04/28/2012 05/01/2012 Overview (04/28/2012): Preoperative evaluation for CABG. Not ReDo -Carotids: Ordered -Vein Mapping: Ordered -Bedside PFTs: Ordered -Formal TTE: Ordered -CXR: Completed
--- OUTSIDE RECORDS SUMMARY | 2025-04-22 13:45 | XMS_ITS | Encounter Summary ---
Author Organization Address [address] [place] [address] Care Team Providers Care Logistics Director Name Role Phone Samm Serrano MD Primary Care Provider +-4 Tom Gonzalez Unavailable [phone] Andreas Pierre MD Unavailable Virgil Carrillo MD Unavailable Jethro Mendoza MD Unavailable Isaías Kinney MD Unavailable [phone] Source Comments In the event this information is protected by the Federal Confidentiality of Alcohol and Drug AbusePatient Records regulations: The Federal rules restrict any use of the information to criminally investigate or prosecute any alcohol or drug abuse patient. Encounter Details Date Type Department Care Team (Late st Contact Info) Description 06/01/2024 Get Medical Advice Cardiology [address] [place], [place] [phone] Isaías Kinney MD [address] [place] [address] lab results from outside lab Social History Tobacco Use Types Packs/Day Years Used Date Smoking Tobacco: Former Cigarettes 1 10 0 04/28/1972 - 04/28/1982 Pipe Passive Smoke Exposure: Never Smokeless Tobacco: Never Alcohol Use Standard Drinks/Week Comments Yes 0 (1 standard drink = 0.6 oz pur e alcohol) rarely [facility] Utilities Answer Date Recorded In the past 12 months has th e electric, gas, oil, or water [employer] threatened to shut off services in your [...] or living in a fdc (including now)? No 05/11/2024 Area Deprivation Index Answer Date Rich rded National Score (1-100), lower number is lower ri sk 52 02/05/2024 State Score (1-10), lower number is lower risk 3 02/05/2024 Data from: https://www.neighborhoodatlas.[facility].edu/. Last address used for calculation [address] [place] [address] [address] 02/05/2024 Sex and Gender Information [...] 06/30/2025 10:00 AM EDT Office Visit Cardiology [address] [place] [address] Isaías Kinney MD [address] [place], [place] [phone] DX: Chronic diastolic heart failure 09/20/2025 8:15 AM EST Procedure Cardiology [address] [place] [address] Dx. Atherosclerotic heart disease of [place] coronary artery with other forms of angina pectoris 09/20/2025 9:00 AM EST Appointment Cardiology [address] [place] [id number] Dx. Atherosclerotic heart disease of [place] coronary artery with other forms of angina pectoris 09/20/2025 9:45 AM EST Office Visit Cardiology [address] [place] [address] Nj Wei MD [address] [place], [place] [phone] Dx. Atherosclerotic heart disease of [place] coronary artery with other forms of angina pectoris documented as of this encounter Goals Goal Patient Goal Type Associated Problems Recent Progress Patient-Stated? Author Blood Pressure < 130/80 Blood Pressure 134/63( 025 3:00 PM EDT) No Lidia Lo, ARIES documented as of this encounter Visit Diagnoses Not on filedocumented in this encounter Care Teams Logistics Director Relationship Specialty Start Date End Date Samm Serrano MD PCP - General Family Medicine 05/30/12 Tom Gonzalez [address] [place] [address] Primary Staff Physician Cardiology 12/02/18 Andreas Pierre MD [address] [place] [address] Primary Staff Physician Cardiology 04/26/23 Virgil Carrillo MD [address] [place] [id number] Primary Staff Physician Cardiology 10/29/23 Jethro Mendoza MD [address] [place] [address] Primary Staff Physician Cardiology 12/26/23 Isaías Kinney MD [address] [place] [address] Primary Staff Physician Cardiology 01/10/24 documented as of this encounter
--- OUTSIDE RECORDS SUMMARY | 2025-04-22 13:45 | XMS_ITS | Encounter Summary ---
Author Organization [facility] Address [address] [place] [address] Care Team Providers Care School Guidance Counselor Name Role Phone Samm Serrano MD Primary Care Provider +-4 Tom Gonzalez Unavailable [phone] Andreas Pierre MD Unavailable Virgil Carrillo MD Unavailable Jethro Mendoza MD Unavailable Isaaís Kinney MD Unavailable [phone] Source Comments In the event this information is protected by the Federal Confidentiality of Alcohol and Drug AbusePatient Records regulations: The Federal rules restrict any use of the information to criminally investigate or prosecute any alcohol or drug abuse patient.[facility] Encounter Details Date Type Department Care Team (Late st Contact Info) Description 06/11/2024 Patient Msg Cardiology [address] [place] [address] Karon Claros MA Missed Remote Transmission Social History Tobacco Use Types Packs/Day Years Used Date Smoking Tobacco: Former Cigarettes 1 10 0 04/28/1972 - 04/28/1982 Pipe Passive Smoke Exposure: Never Smokeless Tobacco: Never Alcohol Use Standard Drinks/Week Comments Yes 0 (1 standard drink = 0.6 oz pur e alcohol) rarely [facility] Utilities Answer Date Recorded In the past 12 months has th e [employer], gas, oil, or water company threatened to [...] or living in a snf (including now)? No 05/11/2024 Area Deprivation Index Answer Date Rich rded National Score (1-100), lower number is lower ri sk 52 02/05/2024 State Score (1-10), lower number is lower risk 3 02/05/2024 Data from: https://www.neighborhoodatlas.[facility]/. Last address used for calculation [address] 02/05/2024 Sex and Gender [...] 06/30/2025 10:00 AM EDT Office Visit Cardiology [address] [place], [place] [phone] Isaías Kinney MD [address] [place] [address] DX: Chronic diastolic heart failure 09/20/2025 8:15 AM EST Procedure Cardiology [address] [place], [place] [phone] Dx. Atherosclerotic heart disease of [place] coronary artery with other forms of angina pectoris 09/20/2025 9:00 AM EST Appointment Cardiology [address] [place], [place] [phone] Dx. Atherosclerotic heart disease of [place] coronary artery with other forms of angina pectoris 09/20/2025 9:45 AM EST Office Visit Cardiology [address] [place], [place] [phone] Nj Wei MD [address] [place] [phone] Dx. Atherosclerotic heart disease of [place] coronary artery with other forms of angina pectoris documented as of this encounter Goals Goal Patient Goal Type Associated Problems Recent Progress Patient-Stated? Author Blood Pressure < 130/80 Blood Pressure 134/63( 025 3:00 PM EDT) Lidia Soto, ARIES documented as of this encounter Visit Diagnoses Not on filedocumented in this encounter Care Teams School Guidance Counselor Relationship Specialty Start Date End Date Samm Serrano MD PCP - General Family Medicine 05/30/12 Tom Gonzalez [address] [place] [address] Primary Staff Physician Cardiology 12/02/18 Andreas Pierre MD [address] [place] [address] Primary Staff Physician Cardiology 04/26/23 Virgil Carrillo MD [address] [place] [address] Primary Staff Physician Cardiology 10/29/23 Jethro Mendoza MD [address] [place] [address] Primary Staff Physician Cardiology 12/26/23 Isaías Kinney MD [address] [place] [address] Primary Staff Physician Cardiology 01/10/24 documented as of this encounter
--- OUTSIDE RECORDS SUMMARY | 2025-04-22 13:45 | XMS_ITS | Clinical Summary ---
Author Organization [facility] Address [address] [place] [address] Care Team Providers Care Adjunct Phlebotomy Instructor Name Role Phone Samm Serrano MD Primary Care Provider [phone] Tom Gonzalez Unavailable [phone] Andreas Pierre MD Unavailable Virgil Carrillo MD Unavailable Jethro Mendoza MD Unavailable Carmela Kinney MD Unavailable [phone] Allergies Active Allergy Reactions Criticality Noted [...] x3 (OTTO-LAD, SVG-PDA, SVG-OM) on 05/01/12 - [facility] 2021: patent OTTO-LAD and SVG-OM, occluded [...] ICD shock Patient has been followed by Mill[facility] Worker Dr. Carvalho for frequent PVCs (burden 27% [...] hospitalized for acute decompensated heart failure at [facility] 09/12/24-09/16/24. During this hospitalization he was diuresed and discharged home. Remote device transmission then revealed that patient had an ICD shock for VT on 09/16/24 at 6:22 am. He was reportedly not on a continuous surveillance system monitor at the time. He had a total of 21 VT events with rates 214-231 bpm, 20 of which were successfully treated with ATP x1 between 09/14/24-10/10/24. Dr. Carvalho recommended admission for further management of ventricular tachycardia and recurrent acute decompensated heart failure. HOSPITAL COURSE: The patient presented to the [facility] ED 09/17/24 after being notified [...] kidney disease, unspecified CKD stage, unspecified whether 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 insulin use 04/26/2023 Stroke (cerebrum) 09/03/2022 Chronic systolic heart failure 09/03/2022 Carotid stenosis, asymptomatic, bilateral 2021 Syncope 03/18/2019 Sweating 11/17/2012 Overview (11/17/2012): History: Developed cold sweat ~ 1100 at rest during hoahaoism on 11/16. There was no nausea, chest pain, jaw pain, shortness of breath, or lightheadedness. This is similar to his symptoms when patient had STEMI in 04/2012. Patient presented to [facility] at 1200. EKG showed q waves in III, aVF; ST depression in I, aVL; ST elevation V3, V4, V5. On arrival to [facility] his EKG showed resolution of ST elevation in V4 and V5. His troponin 0.367 at OSH (? Troponin I); but has been negative at [facility] Main campus. Assessment: Possible atypical manifestations type II demand ischemia in setting of recent dehydration from profuse diarrhea or residual symptoms of recent illness. Cold sweat resolved after arrival. Plan: Trend cardiac enzymes, monitor clinical symptoms, and serial EKG's as needed. If continue to worsen clinically, would proceed to [facility]. Coronary artery disease invo lving coronary bypass graft of chilkoot heart without angina pectoris 11/17/2012 Acute on chronic systolic congestive heart failu re 11/17/2012 Overview (11/17/2012): History: Acute systolic heart failure in setting of PA in 04/2012 LVEF 42% by ECHO 06/2012 [...] LVEF 25%, NL RV. 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 D/c'd 05/02. Postpump TTE: [...] complaints. Continue. Atherosclerotic heart diseas e of chilkoot coronary artery with other forms of angina [...] 56, Troponin T .37 on admission to [facility] Wide-complex tachycardia 04/28/2012 Overview (05/03/2012): Presented to OSH 04/28/12 in setting acute PA with wide complex tachycardia SVT versus VT. Given adenosine x2 without effect, diltiazem bolus and infusion with no effect. Spontaneous conversion to NSR. Had short run of wide complex tachycardia upon arrival to [facility] from CICU. Pre-op evaluation 04/28/2012 05/01/2012 Overview (04/28/2012): Preoperative evaluation for CABG. Not ReDo -Carotids: Ordered -Vein Mapping: Ordered -Bedside PFTs: Ordered -Formal TTE: Ordered -CXR: Completed Encounters Date Type Department Care Team Description 04/13/2025 Patient Out[place] [address] Allyn Katz RN 03/22/2025 Telephone Radiation Oncology [address] [place] [address] [place] [address] Yung Andrade MD Patient Update; Future Appointment; Lab Orders 03/15/2025 Orders Only Cardiology [address] [place] [address] Mariana Carvalho MD SOB (shortness of breath) (Primary Dx) 03/07/2025 Orders Only Pseudo [place]ARD [place] [id number] Mariana Carvalho MD 03/04/2025 2:30 PM EDT [facility] [address] [phone] Tuyet Rodrigues, TELEPHONE STATION REPAIRER.FISHER PURSE SEINE Amaurosis fugax (Primary Dx); Carotid stenosis, asymptomatic, bilateral; Atrial fibrillation, unspecified type (HCC); Mixed hyperlipidemia; Essential hypertension 03/03/2025 1:49 PM EDT Anesthesia Event HOSP EP Lab [address] [place] [address] Aravind Brumfield MD O'Hara, Carleen A, TELEPHONE STATION REPAIRER.CASINO CAGE CASHIER 03/03/2025 12:00 PM EDT - 03/03/2025 1:00 PM EDT Surgery HOSP EP Lab [address] [place] [address] Mariana Carvalho MD CARDIOVERSION EXTERNAL ELECTIVE 03/03/2025 9:31 AM EDT - 03/03/2025 3:24 PM EDT Hospital Encounter [id number] [address] [phone] Mariana Carvalho MD Persistent atrial fibrillation (HCC) [I48.19] Discharge Disposition: Home 03/03/2025 Get Medical Advice Cardiology [address] [place] [address] Carmela Kinney MD Urgent 03/03/2025 Travel 03/02/2025 Travel 03/02/2025 Telephone Cardiology [address] [place] [address] Mariana Carvalho MD Schedule Surgery ([facility]) 03/02/2025 Orders Only Pseudo [place] [address] Mariana Carvalho MD 03/01/2025 11:45 AM EDT Office Visit Cardiology [address] [place] [address] Mariana Carvalho MD Atherosclerotic heart disease of chilkoot coronary artery with other forms of angina pectoris (Primary Dx); Coronary artery disease involving coronary bypass graft of chilkoot heart without angina pectoris; Acute on chronic systolic congestive heart failure (HCC); S/P CABG (coronary artery bypass graft); Cardiomyopathy, ischemic; Frequent PVCs; VT (ventricular tachycardia) ([facility]); ICD (implantable cardioverter-defibrill ator) discharge; 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 kidney disease, unspecified CKD stage, unspecified whether 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 insulin use ([facility]); Stage 3b chronic kidney disease (HCC); Paroxysmal atrial fibrillation (HCC); 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 03/01/2025 10:30 AM EDT - 03/01/2025 11:59 PM EDT Hospital Encounter Cardiology [address] [place] [address] Pacemaker reprogramming/check [Z45.018] Discharge Disposition: Home 03/01/2025 9:45 AM EDT Procedure Cardiology [address] [place] [address] 03/01/2025 Travel 02/25/2025 Patient [facility] HB[facility]3 [address] [place] [address] Tessa Zuniga RPh A Smarter Way to Manage Your Heart Failure Medications 02/23/2025 Telephone Cardiology [address] [place] [address] Carmela Kinney MD Outside Labs-[facility] Ordered (Outside labs dated 02/22/25 from Mitzy Rubin, scanned into Neocut[employer] for review) 01/26/2025 Telephone Cardiology [address] [place] [address] Carmela Kinney MD 01/21/2025 Get Medical Advice Cardiology [address] [phone] Carmela Kinney MD Thyroid labs and medication from Last 3 Months Immunizations Immunization Administration Dates Next Due diphtheria tetanus pertussis (DTP) vaccine 06/13 Family History Medical History Relation Comments Ischemic Heart Disease Brother CABGx6 fi rst at age 72 No Known Problems Daughter 1 No Known Problems Daughter 2 No Known Problems Daughter 3 Coronary Artery Disease Father Heart Attack Father fatal PA at age 77 No Known Problems Maternal Grandfather No Known Problems Maternal Grandmother CHF Mother Other Mother at age 96 atrial fibrillation Mother Other Other paternal cousin at age 50 of PA No Known Problems Paternal Grandfather No Known [...] = 0.6 oz pur e alcohol) rarely [employer] Answer Date Recorded In the past 12 months has th e electric, gas, oil, or water [employer] threatened to shut off services in your [...] is lower risk 3 02/05/2024 Data from: https://www.neighborhoodatlas.medicine.[facility].edu/. Last address used for calculation [address] [place] [address] [address] 02/05/2024 Sex and Gender Information [...] 06/30/2025 10:00 AM EDT Office Visit Cardiology [address] [place], [place] [phone] Carmela Kinney MD [address] [place] [address] DX: Chronic diastolic heart failure 09/20/2025 8:15 AM EST Procedure Cardiology [address] [place] [address] Dx. Atherosclerotic heart disease of chilkoot coronary artery with other forms of angina pectoris 09/20/2025 9:00 AM EST Appointment Cardiology [address] [place] [address] Dx. Atherosclerotic heart disease of chilkoot coronary artery with other forms of angina pectoris 09/20/2025 9:45 AM EST Office Visit Cardiology [address] [place] [address] Mariana Carvalho MD [address] [place] [address] Dx. Atherosclerotic heart disease of chilkoot coronary artery with other forms of angina [...] Retinal Exam 03/02/2025 03/02/2024 HbA1C 04/03/2025 10/04/2024, 01/0 11/2024, 05/09/2024, Additional history exists Influenza Vaccine (#1) 2025 DTaP,Tdap,Td Vaccine (2 - Tdap) 06/13/2030 0 Colonoscopy Discontinued 05/14/2024, 04/17, 05/09/2024 Colorectal Cancer Screening Discontinued CT Colonography Discontinued Cologuard (FIT-DNA) Discontinued Fecal Occult Blood Discontinued Sigmoidoscopy Discontinued Goals Goal Patient Goal Type Associated Problems Recent Progress Patient-Stated? Author Blood Pressure < 130/80 Blood Pressure 134/63( 025 3:00 PM EDT) Lidia Soto RN Medical Devices Implanted Type Area Meat Hanger Device Identifier Shelf Expiration Date Model / Serial / Lot [id number] Mitraclip Xt Delivery System - [id number] Implanted:Qty: 1 on 02/18/2024 by Isreal Rain MD at [facility] Clip N/A: Heart PACHECO VASCULAR [id number] / / Sys Kit 1 Sgc & Up To 3 Clips - [id number] Implanted:Qty: 1 on 02/18/2024 at [facility] Clip PACHECO VASCULAR [id number] / / System Vascade 6/7fr Collagen Compression Bioabsorbable Vascular - [id number] Implanted:Qty: 1 on 03/04/2024 at [facility] Collagen Left: Artery - Femoral CARDIVA 11/12/2025 [id number] / / [id number] Icd-D142 [id number] Implanted:2018 (Quantity not on file) ICD [employer] D142 INOGEN / [id number] / [id number] Implanted:2018 (Quantity not on file) Lead [employer] 0675 / [id number] / [id number] Ingevity Mri [id number] Implanted:2018 (Quantity not on file) Lead [employer] 7741 INGEVITY MRI / [id number] / [id number] [place] 4-Front [id number] Implanted:2018 (Quantity not on file) Lead [employer] 0675 RELIANCE 4-FRONT / [id number] / [place] Cv 6x1in Thk1.65mm Ptfe - [id number] Implanted:Qty: 1 on 05/01/2012 at [facility] Patch BARD PERIPHERAL VASCULAR 06/16/2016 [id number] / / [id number] Description:used for plrdget ts. Patch Cv 8x.8cm Tapr Vsgrd Bov - [id number] Implanted:Qty: 1 on 07/01/2012 at [facility] Patch Right: Artery - Carotid SYNOVIS [employer] INNOVATIONS 01/16/2017 [id number] / / [id number] Description:Right Carotid Stent Precise Pro Rx 8mm Nitinol 40mm 135cm Vascular Self Expand Micromesh - [id number] Implanted:Qty: 1 on 03/04/2024 at [facility] Vascular Stents Left: Artery - Carotid CARDINAL CORDIS 12/14/2025 [id number] / / [id number] Procedures Procedure Name Priority Date/Time Associated Diagnosis [...] AM EDT INTERROGATION EVAL REMOTE </90 D 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 DFB Routine 03/02/2025 4:01 AM EDT [...] 4:00 AM EDT) Date Time Interrogation Session [id number] MURJ CARDIAC Type Interrogation Session Remote Device Initiated MUR CARDIAC Implantable Pulse Generator Meat Hanger Apiary MURJ CARDIAC Implantable Pulse Generator Type Defibrillator [facility] CARDIAC Implantable Pulse Generator Model D142 MUR CARDIAC Implantable Pulse Generator Serial Number [id number] MURJ CARDIAC Implantable Pulse Generator Implant Date 20190324 MURJ CARDIAC Battery Remaining Percentage 81.00 MURJ CARDIAC Battery Remaining Longevity 72.0 MURJ CARDIAC Battery Status Beginning of Service MURJ CARDIAC Capacitor Charge Time 9.500 MURJ CARDIAC Bj Statistic RA Percent Paced 0.00 MURJ CARDIAC Bj Statistic RV Percent Paced 0.00 MURJ CARDIAC Atrial Tachy Statistic AT/AF Newton Percent 20.00 MURJ CARDIAC Lead Channel Sensing [...] CARDIAC Lead Channel Setting P[facility] Pol[facility] Lead Channel Pacing Threshold Polarity Bipolar [facility] CARDIAC Lead Channel Pacing Threshold Polarity Bipolar MURJ CARDIAC Zone Setting Type Category VF MURJ CARDIAC Rate 1 240 MURJ CARDIAC Therapies Burst,41J,41J,41J x 6 MURJ CARDIAC Zone Setting Status On [facility] CARDIAC Zone ID 1 MURJ CARDIAC Zone Setting Type Category VT MURJ CARDIAC Rate 1 200 MURJ CARDIAC Therapies 2 x Burst,41J,41J,41J x 4 MURJ CARDIAC Zone Setting Status On [facility] CARDIAC Zone ID 2 MUR CARDIAC Zone Setting Type Category VT MURJ CARDIAC Rate 1 175 MURJ CARDIAC Therapies 3 x Burst,41J,41J,41J x 3 MURJ CARDIAC Zone Setting Status On [facility] CARDIAC Zone ID 3 [facility] CARDIAC Implantable Lead Meat Hanger Corwith Scientific [facility] CARDIAC Implantable Lead Model 7741 Ingevity MRI [facility] CARDIAC Implantable Lead Location Right Atrium [facility] CARDIAC Implantable Lead Connection Status Connected [facility] CARDIAC Implantable Lead Serial Number [id number] [facility] CARDIAC Implantable Lead Implant Date 20190324 [facility] CARDIAC Implantable Lead Meat Hanger Corwith Scientific [facility] CARDIAC Implantable Lead Model 0675 [facility] CARDIAC Implantable Lead Location Right Ventricle [facility] CARDIAC Implantable Lead Connection Status Connected [facility] CARDIAC Implantable Lead Serial Number [id number] [facility] CARDIAC Implantable Lead Implant Date [id number] [facility] CARDIAC Implantable Lead Polarity Type Unknown [facility] CARDIAC 03/07/2025 4:[address] [facility] - 03/10/2025 7:36 AM EDT Remote Device Evaluation * Device type: BST dual lead ICD * Presenting Rhythm: /VS * Battery Status: Battery is at 6.00 yrs * Arrhythmias: There has been 1 atrial detection since last remote transmission * Lead Measurements: Sensing and lead impedances reviewed, stable measurements per trends * Other Diagnostics: *AP 0%, SOUND RECORDIST 0%, AT/AF burden 20%* Tachycardia: AFL * Stored EGMs are consistent with or suggestive of Atrial Flutter * AT Newton: 20% * Total number of episodes: 1 [...] per trends * Other Diagnostics: *AP 0%, SOUND RECORDIST 0%, AT/AF burden 20%* Tachycardia: AFL * Stored EGMs are consistent with or suggestive of Atrial Flutter * AT Newton: 20% * Total number of episodes: 1 on 03/05/25 * Episode length: 27hr 38min * OAC: Eliquis NOTE TO PROVIDERS: Cardiac Implanted Devices Flowsheets contain detailedProgramming and Evaluation data. Full Docket/PDF found below under Scanned Documents . Mariana Carvalho MD CARDIOLOGY Final Result [facility] CARDIAC * CARDIAC IMPLANTABLE DEVICE CHECK (03/03/2025 3:42 PM EDT) Date Time Interrogation Session [id number] [facility] CARDIAC Implantable Pulse Generator Meat Hanger Corwith Lookout [facility] CARDIAC Implantable Pulse Generator Type Defibrillator [facility] C[facility]IAC Implantable Pulse Generator Model D142 [facility] C[facility] Implantable Pulse Generator Serial Number [id number] [facility] C[facility]IAC Implantable Pulse Generator Implant Date 20190324 MUR CARDIAC Battery Status MONIKA MURJ CARDIAC Bj Statistic RA Percent Paced 1.00 MURJ CARDIAC Bj Statistic RV Percent Paced 2.00 MURJ CARDIAC Atrial Tachy Statistic AT/AF Newton Percent 100.00 MURJ CARDIAC Lead Channel Sensing [...] x6 MURJ CARDIAC Zone Setting Status On [facility] CARDIAC Zone ID 1 MURJ CARDIAC Zone Setting Type Category VT MURJ CARDIAC Rate 1 200 MURJ CARDIAC Therapies Burst, 41J, 41J, 41J x4 MURJ CARDIAC Zone Setting Status On [facility] CARDIAC Zone ID 2 MURJ CARDIAC Zone Setting Type Category VT1 MURJ CARDIAC Rate 1 175 MURJ CARDIAC Therapies Burst, 41J, 41J, 41J x3 MURJ CARDIAC Zone Setting [facility] ID 3 [facility] CARDIAC Implantable Lead Meat Hanger Corwith Scientific [facility] CARDIAC Implantable Lead Model 7741 Ingevity MRI [facility] CARDIAC Implantable Lead Location Right Atrium [facility] CARDIAC Implantable Lead Connection Status Connected [facility] CARDIAC Implantable Lead Serial Number [id number] [facility] CARDIAC Implantable Lead Implant Date 20190324 [facility] CARDIAC Implantable Lead Meat Hanger Corwith Scientific [facility] CARDIAC Implantable Lead Model 0675 [facility] CARDIAC Implantable Lead Location Right Ventricle [facility] CARDIAC Implantable Lead Connection Status Connected [facility] CARDIAC Implantable Lead Serial Number [id number] [facility] CARDIAC Implantable Lead Implant Date 20190316 MURJ CARDIAC 03/03/2025 3:42 PM EDT Narrative MURJ [...] Docket/PDF found below under Scanned Documents . Gavi Childress MD CARDIOLOGY Final Result [facility] CARDIAC * ECG COMPLETE (03/03/2025 2:22 PM EDT) Ventricular Rate 80 BPM [facility] Atrial Rate 80 BPM [facility] P-R Interval 168 ms [facility] QRS Duration 116 ms [facility] QT Interval 380 ms [facility] QTC Calculation (Bazett) 438 ms [facility] Calculated P Thorofare 53 degrees [facility] Calculated R Thorofare -10 degrees [facility] Calculated T Thorofare 153 degrees [facility] 03/03/2025 2:22 PM EDT Impressions [facility] - 04/15/2025 7:12 AM EDT SINUS RHYTHM WITH PREMATURE ATRIAL COMPLEXES LOW VOLTAGE QRS, CONSIDER PULMONARY DISEASE, PERICARDIAL EFFUSION, OR NORMAL VARIANT ST & LATERAL T WAVE ABNORMALITY INCOMPLETE LEFT BUNDLE BRANCH BLOCK ABNORMAL ECG Confirmed by ANTOINETTE HOOKS MD ([id number]) on 04/15/2025 7:12:01 AM Narrative [facility] - 04/15/2025 7:12 AM EDT NAME : JOSÉ MIGUEL ANTONIO PID : [id number] : 1940 Gender : Male Race : ORD : [id number] Procedure Date : Mar 03 2025 14:22:17 Edit Date : Apr 15 2025 07:12:03 Diagnosis: SINUS RHYTHM WITH PREMATURE ATRIAL COMPLEXES LOW VOLTAGE QRS, CONSIDER PULMONARY DISEASE, PERICARDIAL EFFUSION, OR NORMAL VARIANT ST & LATERAL T WAVE ABNORMALITY INCOMPLETE LEFT BUNDLE BRANCH BLOCK ABNORMAL ECG Confirmed by ANTOINETTE HOOKS MD ([id number]) on 04/15/2025 7:12:01 AM Test Reason : 921 Location : 23 : [id number] Overread By : ANTOINETTE HOOKS MD Edited By : ANTOINETTE HOOKS MD Referred By : , Acquired by : [id number], us Mariana Eriberto YOUNG EKG Final Result [facility] [address] [place] [address] * EPS: CARDIOVERSION (03/03/2025 1:56 PM EDT) 03/03/2025 1:56 PM EDT Narrative [facility] - 03/03/2025 2:09 PM EDT Final Report Cardiac Electrophysiology Laboratory [address] [place] [address] The entire procedure was performed by the Staff Physician without the assistance of a Fellow. This report has been electronically signed on 03/03/2025 14:09 by SHAWN CAZARES MD Procedure: DC Cardioversion Room: Lab 6 Date of service: 03/03/2025 Patient [...] months LV function: ECHO: Ejection fraction 0.16 [id number] risk score: 5 Congestive heart failure/LV dysfunction: 1 Hypertension: 1 Age >= 75 years: 2 Diabetes mellitus: 0 Stroke, TIA, or thromboembolism: 0 Vascular disease (prior PA/CAD, PAD or aortic plaque): 1 Age 65-74 years: 0 Sex, female: 0 Duration of arrhythmia: 2 weeks Duration of anticoagulation: > 1 year Patient: [id number] JOSÉ MIGUEL ANTONIO Lab Staff: SHAWN CAZARES MD Lab Fellow: Referring Physician: CARMELA KINNEY MD us Shawn Cazares MD SCHEDULED PROCEDURES Final R esult [facility] [address] [place], [place] [id number] * (ABNORMAL) COMPREHENSIVE METABOLIC PANEL (03/03/2025 11:03 AM EDT) [facility] Protein, Total 7.2 6.3 - 8.0 g/dL 03/03/2025 11:40 AM [facility] Albumin 3.9 3.9 - 4.9 g/dL 03/03/2025 11:40 AM [facility] Calcium, Total 9.5 8.5 - 10.2 mg/dL 03/03/2025 11:40 AM T [facility] Bilirubin, Total 1.8(H) 0.2 - 1.3 mg/dL 03/03/2025 11:40 AM [facility] Alkaline Phosphatase 125(H) 38 - 113 U/L 03/03/2025 11:40 AM [facility] AST 20 14 - 40 U/L 03/03/2025 11:40 AM [facility] ALT 14 10 - 54 U/L 03/03/2025 11:40 AM [facility] Glucose 106(H) 74 - 99 mg/dL 03/03/2025 11:40 AM [facility] Comment: The [place] Diabetes Association (ADA) provides guidance for cutoff [...] Standards of Medical Care in Diabetes 2016, [place] Diabetes Association. Diabetes Care. 2016.39(Suppl 1). BUN 59(H) 9 - 24 mg/dL 03/03/2025 11:40 AM [facility] Creatinine 2.46(H) 0.73 - 1.22 mg/dL 03/03/2025 11:40 AM [facility] Sodium 138 136 - 144 mmol/L 03/03/2025 11:40 AM EDT [facility] Potassium 5.4(H) 3.7 - 5.1 mmol/L 03/03/2025 11:40 AM EDT [facility] Chloride 101 98 - 107 mmol/L 03/03/2025 11:40 AM EDT [facility] CO2 24 22 - 30 mmol/L 03/03/2025 11:40 AM EDT [facility] Anion Gap 13 8 - 15 mmol/L 03/03/2025 11:40 AM EDT [facility] Estimated Glomerular Filtration Rate 25(L) >=60 mL/min/1. 73m 03/03/2025 11:40 AM EDT [facility] Comment:Estimated Glomerular Filtration Rate (eGFR) is [...] EDT 03/03/2025 11:20 AM EDT us Mariana Eriberto [facility] Final Result [facility] [place] [address], * ECG COMPLETE (03/03/2025 10:59 AM EDT) Ventricular Rate 132 BPM [facility] QRS Duration 122 ms [facility] QT Interval 280 ms [facility] QTC Calculation (Bazett) 414 ms [facility] Calculated R Thorofare -13 degrees [facility] Calculated T Thorofare 153 degrees [facility] 03/03/2025 10:5 9 AM EDT Impressions [facility] - 03/25/2025 1:48 PM EDT ATRIAL FIBRILLATION WITH RAPID VENTRICULAR RESPONSE COMPLETE LEFT BUNDLE BRANCH BLOCK ABNORMAL ECG Confirmed by SULLY ZAMORA M.D. ([id number]) on 03/25/2025 1:47:29 PM [facility] - 03/25/2025 1:48 PM EDT NAME : JOSÉ MIGUEL ANTONIO PID : [id number] : 1940 Gender : Male Race : ORD : [id number] Procedure Date : Mar 03 2025 10:59:46 [...] Referred By : , Acquired by : [id number], Mariana Eriberto YOUNG EKG Final Result [facility] 37 [place] [address] * CARDIAC IMPLANTABLE DEVICE CHECK REMOTE (03/02/2025 4:01 AM EDT) Date Time Interrogation Session [id number] MURJ CARDIAC Type Interrogation Session Remote MURJ CARDIAC Implantable Pulse Generator Meat Hanger Apiary MURJ CARDIAC Implantable Pulse Generator Type Defibrillator MURJ CARDIAC Implantable Pulse Generator Model D142 MURJ CARDIAC Implantable Pulse Generator Serial Number [id number] MURJ CARDIAC Implantable Pulse Generator Implant Date [...] CARDIAC Lead Channel Setting Pacing Polarity Bipolar MUR CARDIAC Lead Channel Pacing Threshold Polarity Bipolar MUR CARDIAC Lead Channel Pacing Threshold Polarity Bipolar MURJ CARDIAC Zone Setting Type Category VF MURJ CARDIAC Rate 1 240 MURJ CARDIAC Therapies Burst,41J,41J,41J x 6 MURJ CARDIAC Zone Setting Status On [facility] CARDIAC Zone ID 1 MURJ CARDIAC Zone Setting Type Category [place] MURJ CARDIAC Rate 1 200 MURJ CARDIAC Therapies 2 x Burst,41J,41J,41J x 4 MURJ CARDIAC Zone Setting Status On [facility] CARDIAC Zone ID 2 MURJ CARDIAC Zone Setting Type Category [place] MURJ CARDIAC Rate 1 175 MURJ CARDIAC Therapies 3 x Burst,41J,41J,41J x 3 MURJ CARDIAC Zone Setting Status On [facility] CARDIAC Zone ID 3 [facility] CARDIAC Implantable Lead Meat Hanger Corwith Scientific [facility] CARDIAC Implantable Lead Model 7741 Ingevity MRI [facility] CARDIAC Implantable Lead Location Right Atrium [facility] CARDIAC Implantable Lead Connection Status Connected [facility] CARDIAC Implantable Lead Serial Number [id number] [facility] CARDIAC Implantable Lead Implant Date [id number] [facility] CARDIAC Implantable Lead Meat Hanger [employer] [facility] CARDIAC Implantable Lead Model 0675 [facility] CARDIAC Implantable Lead Location Right Ventricle [facility] CARDIAC Implantable Lead Connection Status Connected [facility] CARDIAC Implantable Lead Serial Number [id number] [facility] CARDIAC Implantable Lead Implant Date [id number] [facility] CARDIAC Implantable Lead Polarity Type Unknown [facility] CARDIAC 03/02/2025 4:01 AM EDT Narrative [facility] CARDIAC - 03/02/2025 8:49 PM EDT Tachycardia: AF *AF re-assessment, scheduling for DCC 03/03* * Presenting EGM: AF/VS * Stored EGMs are consistent with or suggestive of Atrial Fibrillation * Total number of events: Ongoing since at least 02/28 *Diagnostics: *AP 2%, SOUND RECORDIST 6%, AT/AF burden N/R* Additional Notes: Dr. [...] since at least 02/28 *Diagnostics: *AP 2%, SOUND RECORDIST 6%, AT/AF burden N/R* Additional Notes: Dr. [...] PM EDT) 03/01/2025 12:5 2 PM EDT [facility] - 03/01/2025 10:37 PM EDT Non-Invasive Vascular Laboratory [facility] J35 Carotid Duplex Bilateral/Complete Date of service/time: 03/01/2025 12:52:36 PM Name: MR. JOSÉ MIGUEL ANTONIO . Date of : 1940 Age: 85 years [...] interpretation criteria are used as recommended by [facility] Accreditation Commission. When compared with the prior [...] Lewis Brady RVT Ordering physician: LUÍS SKINNER FISHER PURSE SEINE Interpreting physician: Yusuf Bernard MD Final See Link below for Image us [facility] Provider VASCULAR LAB Final Result Performing Organization Address City/State/[facility] Co de Phone Number [facility] [address] [place] [address] * CARDIAC IMPLANTABLE DEVICE CHECK (03/01/2025 11:26 AM EDT) Date Time Interrogation Session [id number] MURJ CARDIAC Implantable Pulse Generator Meat Hanger [employer] MURJ CARDIAC Implantable Pulse Generator Type Defibrillator MURJ CARDIAC Implantable Pulse Generator Model D142 MURJ CARDIAC Implantable Pulse Generator Serial Number [id number] MURJ CARDIAC Implantable Pulse Generator Implant Date [id number] MURJ CARDIAC Battery Status MONIKA MURJ CARDIAC Bj Statistic RA Percent Paced 1.00 MURJ CARDIAC Bj Statistic RV Percent Paced 1.00 MURJ CARDIAC Atrial Tachy Statistic AT/AF Newton Percent 1.00 MURJ CARDIAC Lead Channel Sensing [...] 41J MURJ CARDIAC Zone Setting Status On [facility] CARDIAC Zone ID 1 MURJ CARDIAC Zone Setting Type Category VT MURJ CARDIAC Rate 1 200 MURJ CARDIAC Therapies 41J, 41J MURJ CARDIAC Zone Setting Status On [facility] CARDIAC Zone ID 2 MURJ CARDIAC Zone Setting Type Category VT1 MURJ CARDIAC Rate 1 175 MURJ CARDIAC Therapies 41J, 41J MURJ CARDIAC Zone Setting Status On [facility] CARDIAC Zone ID 3 [facility] CARDIAC Implantable Lead Meat Hanger [employer] [facility] CARDIAC Implantable Lead Model 7741 Ingevity MRI [facility] CARDIAC Implantable Lead Location Right Atrium [facility] CARDIAC Implantable Lead Connection Status Connected [facility] CARDIAC Implantable Lead Serial Number [id number] [facility] CARDIAC Implantable Lead Implant Date [id number] [facility] CARDIAC Implantable Lead Meat Hanger [employer] [facility] CARDIAC Implantable Lead Model 0675 [facility] CARDIAC Implantable Lead Location Right Ventricle [facility] CARDIAC Implantable Lead Connection Status Connected [facility] CARDIAC Implantable Lead Serial Number [id number] [facility] CARDIAC Implantable Lead Implant Date [id number] [facility] CARDIAC 03/01/2025 11:2 6 AM EDT Narrative [facility] CARDIAC - 03/01/2025 10:06 PM EDT In-Office Device Evaluation OPD with Dr. Carvalho * Device type: BST dual lead ICD * Presenting Rhythm: AF/VS-SOUND RECORDIST * Underlying Rhythm: AF with variable ventricular [...] or infection. * Other Diagnostics: *AP 1%, SOUND RECORDIST <1%, AT/AF burden 1% (however likely higher d/t DDIR programming)* Tachycardia: AF * Stored EGMs are consistent with or suggestive of Atrial Fibrillation, intermittent RVR observed on stored episodes * AT/AF Newton: 1% * OAC: Eliquis Appropriate VT Therapy: [...] BST dual lead ICD * Presenting Rhythm: AF/VS-SOUND RECORDIST * Underlying Rhythm: AF with variable ventricular [...] or infection. * Other Diagnostics: *AP 1%, SOUND RECORDIST <1%, AT/AF burden 1% (however likelyhigher d/t DDIR programming)* Tachycardia: AF * Stored EGMs are consistent with or suggestive of Atrial Fibrillation,intermittent RVR observed on stored episodes * AT/AF Newton: 1% * OAC: Eliquis Appropriate VT Therapy: [...] under Scanned Documents . us [facility] Provider CARDIOLOGY F inal Result MURJ CARDIAC * ECG COMPLETE (03/01/2025 10:52 AM EDT) Ventricular Rate 106 BPM [facility] QRS Duration 122 ms [facility] QT Interval 298 ms [facility] QTC Calculation (Bazett) 395 ms [facility] Calculated R [place] 1 degrees [facility] Calculated T [place] 155 degrees [facility] 03/01/2025 [...] NAME : JOSÉ MIGUEL ANTONIO PID : [id number] : 1940 Gender : Male Race : ORD : [id number] Procedure Date : Mar 01 2025 10:52:23 Edit Date : Mar 25 2025 13:48:05 Diagnosis: ATRIAL FIBRILLATION WITH RAPID VENTRICULAR RESPONSE WITH FREQUENT VENTRICULAR-PACED COMPLEXES AND WITH PREMATURE VENTRICULAR COMPLEXES NONSPECIFIC INTRAVENTRICULAR CONDUCTION DELAY MINIMAL VOLTAGE CRITERIA FOR LVH, MAY BE NORMAL VARIANT ( [place] product ) NONSPECIFIC ST AND T WAVE ABNORMALITY ABNORMAL ECG Confirmed by SULLY ZAMORA M.D. ([id number]) on 03/25/2025 1:47:29 PM Test Reason : Location : 314 : J14 J14 Overread By : SULLY ZAMORA M.D. Edited By : SULLY ZAMORA M.D. Referred By : MARIANA CARVALHO Acquired by : JUHI GO us Jethro Mendoza MD EKG Final Result Performing Organization Address City/[facility]/ZIP Co de Phone Number [facility] [address] [place], [place] [id number] * EXTERNAL LAB (02/24/2025 10:04 AM EDT) Only the most recent of2 resultswithin the time period is included. us External Provider PA-C LABORATORY Final Res ult * HEMOGLOBIN A1C (09/18/2024 4:51 AM EST) Hemoglobin A1C 5.5 4.3 - 5.6 % 09/18/2024 8:23 AM EST [facility] Comment:[place] Diabetes As sociation guidelines indicate that patients with HgbA1c in the range 5.7-6.4% are at increased risk for development of diabetes, and intervention by lifestyle modification may be beneficial. HgbA1c greater or equal to 6.5% is considered diagnostic of diabetes. Estimated Average Glucose 111 mg/dL 09/18/2024 8:23 AM EST [facility] Comment:eAG: (Estimated aver age glucose) is a calculated value from HgbA1c and is floor representative of the average blood glucose level in the last 2-3 month period. Blood BLOOD SPECIMEN / Unknown Venipuncture / Unknown 09/18/2024 4:51 AM EST 09/18/2024 6:28 AM EST us Hector Juan MD LABORATORY Final Res ult [facility] [address] [facility] [address] [place] [address], [place] * COLONOSCOPY (THERAPEUTIC) (05/14/2024 4:09 PM EDT) Anatomical Region Laterality Modality Other 05/14/2024 4:09 PM EDT Narrative 05/15/2024 2:37 PM EDT Q3 Patient Name: José Miguel Antonio Procedure Date: 05/14/2024 4:09 PM Date of : 1940 Admit Type: Inpatient Age: 84 Gender: Male Note Status: Finalized Attending MD: Vel Carpio MD, [id number] Procedure: Colonoscopy Indications: Hematochezia Providers: Vel Carpio [...] the patient. Procedure Code(s): --- Professional --- 60579, Colonoscopy, flexible; diagnostic, including collection of specimen(s) by brushing or washing, when performed (separate procedure) CPT copyright 2020 [employer] [employer]. All rights reserved. Attending Participation: [...] 118 <200 mg/dL 02/16/2024 2:44 PM EDT [facility] Comment: <200 mg/dL, Desirable 200-239 mg/dL, Borderline high >239 mg/dL, High Triglycerides, Nonfasting 74 <150 mg/dL 02/16/2024 2:44 PM EDT [facility] Comment: <150 mg/dL, Normal 150-199 mg/dL, Borderline high 200-499 mg/dL, High >499 mg/dL, Very high HDL Cholesterol, Nonfasting 28(L) >39 mg/dL 02/16/2024 2:44 PM EDT [facility] Comment: 40-59 mg/dL, Acceptable >59 mg/dL, High: Negative risk factor for coronary heart disease <40 mg/dL, Low: Positive risk factor for coronary heart disease LDL Cholesterol Calculated, Nonfasting 75 <100 mg/dL 02/16/2024 2:44 PM EDT [facility] Comment: <100 mg/dL, Optimal 100-129 mg/dL, Near optimal/above optimal 130-159 mg/dL, Borderline high 160-189 mg/dL, High >189 mg/dL, Very high Secondary prevention optimal LDL Cholesterol levels are recommended to be < 70 mg/dL Non HDL Cholesterol, Nonfasting 90 <130 mg/dL 02/16/2024 2:44 PM EDT [facility] Comment: <130 mg/dL, Optimal 130-159 mg/dL, Near optimal/above optimal 160-189 mg/dL, Borderline high 190-219 mg/dL, High >219 mg/dL, Very high Secondary prevention optimal non HDL Cholesterol levels are recommended to be <100 mg/dL VLDL Cholesterol, Nonfasting 15 <30 mg/dL 02/16/2024 2:44 PM EDT [facility] Total Chol/HDL Ratio, Nonfasting 4.21 <5.10 mg/dL 02/16/2024 2:44 PM EDT [facility] LDL/HDL Ratio, Nonfasting 2.68(H) <2.54 mg/dL 02/16/2024 2:44 PM EDT [facility] Comment: Reference: 1. National Cholesterol Education Program ATP III Guideline At-A-Glance Quick Desk Reference: National Heart, Lung, and Blood [place]. National Institutes of Health. 2001: NIH Publication No. 01-3305. 2. An International Atherosclerosis Society position paper: global recommendations for the management of dyslipidemia: executive summary, Atherosclerosis. 2014: 232(2):410-413. Blood BLOOD SPECIMEN / Unknown Venipuncture / Unknown 02/16/2024 10:30 AM EDT 02/16/2024 10:54 AM EDT us Leonardo Nino MD LABORATORY Final Result [facility] [address] [id number], from Last 3 Months or Most Recently Relevant to Health Maintenance Insurance MEDICARE [address] MEDICARE SUPPLEMENT * Guarantor: [facility] Account Type Relation to Patient Date of [...] Code Order Discussed With: Patient Care Teams Adjunct Phlebotomy Instructor Relationship Specialty Start Date End Date Samm Serrnao MD PCP - General Family Medicine 05/30/12 Tom Gonzalez [address] [place] [address] Primary Staff Physician Cardiology 12/02/18 Andreas Pierre MD [address] [place] [address] Primary Staff Physician Cardiology 04/26/23 Virgil Carrillo MD [address] [place] [address] Primary Staff Physician Cardiology 10/29/23 Jethro Mendoza MD [address] [facility] [place] [place] [phone] Primary Staff Physician Cardiology 12/26/23 Carmela Kinney MD [address] [place] [address] Primary Staff Physician Cardiology 01/10/24
--- OUTSIDE RECORDS SUMMARY | 2025-04-22 13:46 | XMS_ITS | Encounter Summary ---
Author Organization [facility] Address [address] [place] [address] Care Team Providers Care Blackjack Pit Boss Name Role Phone Samm Serrano MD Primary Care Provider [phone] Tom Gonzalez Unavailable [phone] Andreas Pierre MD Unavailable Virgil Carrillo MD Unavailable Jethro Mendoza MD Unavailable Isaías Kinney MD Unavailable [phone] Source Comments In the event this information is protected by the Federal Confidentiality of Alcohol and Drug AbusePatient Records regulations: The Federal rules restrict any use of the information to criminally investigate or prosecute any alcohol or drug abuse patient.[facility] Encounter Details Date Type Department Care Team (Late st Contact Info) Description 02/11/2024 Patient Msg Cardiology [address] [place] [address] Isaías Kinney MD [address] [place] [address] Appointment Cancellation Request Social History Tobacco Use [...] is lower risk 3 02/05/2024 Data from: https://www.neighborhoodatlas.medicine.[facility].edu/. Last address used for calculation [address] 02/05/2024 Sex [...] 10:00 AM EDT Office Visit Cardiology [address] [place] [address] Isaías Kinney MD [address] [place] [address] DX: Chronic diastolic heart failure 09/20/2025 8:15 AM EST Procedure Cardiology [address] [place] [address] Dx. Atherosclerotic heart disease of [place] coronary artery with other forms of angina pectoris 09/20/2025 9:00 AM EST Appointment Cardiology [address] [place] [address] Dx. Atherosclerotic heart disease of [place] coronary artery with other forms of angina pectoris 09/20/2025 9:45 AM EST Office Visit Cardiology [address] [place] [address] Nj Wei MD [address] [place] [address] Dx. Atherosclerotic heart disease of [place] coronary artery with other forms of angina pectoris documented as of this encounter Goals Goal Patient Goal Type Associated Problems Recent Progress Patient-Stated? Author Blood Pressure < 130/80 Blood Pressure 134/63( 025 3:00 PM EDT) No Lidia Lo RN documented as of this encounter Visit Diagnoses Not on filedocumented in this encounter Care Teams Blackjack Pit Boss Relationship Specialty Start Date End Date Samm Serrano MD PCP - General Family Medicine 05/30/12 Tom Gonzalez [address] [facility] [place] [address] Primary Staff Physician Cardiology 12/02/18 Andreas Pierre MD [address] [place] [address] Primary Staff Physician Cardiology 04/26/23 Virgil Carrillo MD [address] [place] [address] Primary Staff Physician Cardiology 10/29/23 Jethro Mendoza MD [address] [place] [address] Primary Staff Physician Cardiology 12/26/23 Isaías Kinney MD [address] [place] [address] Primary Staff Physician Cardiology 01/10/24 documented as of this encounter
--- OUTSIDE RECORDS SUMMARY | 2025-04-22 13:46 | XMS_ITS | Encounter Summary ---
Author Organization [facility] s tem Address [id number] [address] [place] [address] Care Team Providers Care Cell Tower Climber Name Role Phone Samm Serrano MD Primary Care Provider [phone] Encounter Details Date Type Department Care Team (Late st Contact Info) Description 04/16/2025 Lab Requisition [facility] - Lab [address] [place] [phone] Samm Serrano MD [address] [place] [address] Hematuria, unspecified Social History Tobacco Use Types Packs/Day [...] often do you attend chur ch or bahai services? Never 08/17/2021 Do you belong to any clubs o r organizations such as druze groups, unions, fraternal or athletic groups, or [...] Date Recorded Total Score 0 08/17/2021 [facility] - [...] as of this encounter Plan of Treatment Pending Results Name Type Priority Associated Diagnoses Date /Time Urine culture Microbiology Routine Hematuria, unspecified 04/16/2025 1:15 PM EDT documented as of this encounter Goals Goal Patient Goal Type Associated Problems Recent Progress Patient-Stated? Author <enter goal here> General Yes Opal Condon, RN Note: Evaluation of progress towards goal: To return home safely with spouse and attend outpatient therapy. documented as of this encounter Procedures Procedure Name Priority Date/Time Associated Diagnosis Comments MICROSCOPIC URINE Routine 04/16/2025 1:1 5 PM EDT Hematuria, unspecified documented in this encounter Results * (ABNORMAL) Microscopic, urine (04/16/2025 1:15 PM EDT) R.B.CELLS >100(H) 0 - 5 04/16/2025 2:51 PM EDT [facility] W.B.CELLS 04/16/2025 2:51 PM EDT [facility] Comment:PRESENT Urine Urine specimen collection, clean catch / Unknown 04/16/2025 1:15 PM EDT 04/16/2025 2:35 PM EDT us Samm Serrano MD URINE ORDERABLES Final Result [facility] [address] [place] [address], documented in this encounter Visit Diagnoses Diagnosis Hematuria, unspecified documented in this encounter Additional Health Concerns Assessment Noted Time PHQ-9 Depression Total Score: 0 08/17/20 21 12:12 PM EST documented as of this encounter Care Teams Cell Tower Climber Relationship Specialty Start Date End Date Samm Serrano MD PCP - General Family Medicine 02/26/24 documented as of this encounter
--- OUTSIDE RECORDS SUMMARY | 2025-04-22 13:46 | XMS_ITS | Encounter Summary ---
Author Organization [facility] Address [address] [place] [address] Care Team Providers Care Business Dean Name Role Phone Samm Serrano MD Primary Care Provider [phone] Tom Gonzalez Unavailable [phone] Andreas Pierre MD Unavailable Virgil Carrillo MD Unavailable Jethro Mendoza MD Unavailable Isaías Kinney MD Unavailable [phone] Source Comments In the event this information is protected by the Federal Confidentiality of Alcohol and Drug AbusePatient Records regulations: The Federal rules restrict any use of the information to criminally investigate or prosecute any alcohol or drug abuse patient.[facility] Encounter Details Date Type Department Care Team (Late st Contact Info) Description 08/14/2024 Patient Msg Cardiology [address] [place], [place] [phone] Isaías Kinney MD [address] [place] [address] Eliquis Social History Tobacco Use Types Packs/Day Years Used Date Smoking Tobacco: Former Cigarettes 1 10 0 04/28/1972 - 04/28/1982 Pipe Passive Smoke Exposure: Never Smokeless Tobacco: Never Alcohol Use Standard Drinks/Week Comments Yes 0 (1 standard drink = 0.6 oz pur e alcohol) rarely [facility] Utilities Answer Date Recorded In [...] time in the past 12 m [facility], were you homeless or living in a jail (including now)? Yes 07/22/2024 Area Deprivation Index Answer Date Rich rded National Score (1-100), lower number is lower ri sk 52 02/05/2024 State Score (1-10), lower number is lower risk 3 02/05/2024 Data from: https://www.neighborhoodatlas.medicine.[facility].edu/. Last address used for calculation [address] [place] [address] [address] 02/05/2024 Sex and Gender Information [...] Assessment Author No 05/16/2024 2:47 PM EDT Capmos Mina RN * Do you have serious [...] 06/30/2025 10:00 AM EDT Office Visit Cardiology [address] [place] [address] Isaías Kinney MD [address] [place], [place] [phone] DX: Chronic diastolic heart failure 09/20/2025 8:15 AM EST Procedure Cardiology [address] [place] [address] Dx. Atherosclerotic heart disease of [place] coronary artery with other forms of angina pectoris 09/20/2025 9:00 AM EST Appointment Cardiology [address] [place] [address] Dx. Atherosclerotic heart disease of [place] coronary artery with other forms of angina pectoris 09/20/2025 9:45 AM EST Office Visit Cardiology [address] [place] [address] Nj Wei MD [address] [place], [place] [phone] Dx. Atherosclerotic heart disease of [place] coronary artery with other forms of angina pectoris documented as of this encounter Goals Goal Patient Goal Type Associated Problems Recent Progress Patient-Stated? Author Blood Pressure < 130/80 Blood Pressure 134/63( 025 3:00 PM EDT) No Lidia Lo, ARIES documented as of this encounter Visit Diagnoses Not on filedocumented in this encounter Care Teams Business Dean Relationship Specialty Start Date End Date Samm Serrano MD PCP - General Family Medicine 05/30/12 Tom Gonzalez [address] [place] [address] Primary Staff Physician Cardiology 12/02/18 Andreas Pierre MD [address] [place] [address] Primary Staff Physician Cardiology 04/26/23 Virgil Carrillo MD [address] [phone] Primary Staff Physician Cardiology 10/29/23 Jethro Mendoza MD [address] [place] [address] Primary Staff Physician Cardiology 12/26/23 Isaías Kinney MD [address] [phone] Primary Staff Physician Cardiology 01/10/24 documented as of this encounter
--- OUTSIDE RECORDS SUMMARY | 2025-04-22 13:46 | XMS_ITS | Encounter Summary ---
Author Organization [facility] Address [address] [place] [address] Care Team Providers Care Room Attendant Name Role Phone Samm Serrano MD Primary Care Provider +-4 Tom Gonzalez Unavailable [phone] Andreas Pierre MD Unavailable Virgil Carrillo MD Unavailable Jethro Mendoza MD Unavailable Isaías Kinney MD Unavailable [phone] Source Comments In the event this information is protected by the Federal Confidentiality of Alcohol and Drug AbusePatient Records regulations: The Federal rules restrict any use of the information to criminally investigate or prosecute any alcohol or drug abuse patient.[facility] Encounter Details Date Type Department Care Team (Late st Contact Info) Description 03/03/2025 Get Medical Advice Cardiology [address] [place], [place] [phone] Isaías Kinney MD [address] [place] [address] Urgent Social History Tobacco Use Types Packs/Day Years Used Date Smoking Tobacco: Former Cigarettes 1 10 0 04/28/1972 - 04/28/1982 Pipe Passive Smoke Exposure: Never Smokeless Tobacco: Never Alcohol Use Standard Drinks/Week Comments Not Currently 0 (1 standard drink = 0.6 oz pur e alcohol) rarely [facility] Utilities Answer Date Recorded In the past 12 months has th e [employer], gas, oil, or water [employer] threatened to shut off services in your [...] is lower risk 3 02/05/2024 Data from: https://www.neighborhoodatlas.medicine.[facility].edu/. Last address used for calculation [address] [address] 02/05/2024 Sex and Gender Information [...] 06/30/2025 10:00 AM EDT Office Visit Cardiology [address] [place] [address] Isaías Kinney MD [address] [place] [address] DX: Chronic diastolic heart failure 09/20/2025 8:15 AM EST Procedure Cardiology [address] [place] [address] Dx. Atherosclerotic heart disease of [place] coronary artery with other forms of angina pectoris 09/20/2025 9:00 AM EST Appointment Cardiology [address] [place] [address] Dx. Atherosclerotic heart disease of [place] coronary artery with other forms of angina pectoris 09/20/2025 9:45 AM EST Office Visit Cardiology [address] [place] [address] Nj Wei MD [address] [place] [address] Dx. Atherosclerotic heart disease of [place] coronary artery with other forms of angina pectoris documented as of this encounter Goals Goal Patient Goal Type Associated Problems Recent Progress Patient-Stated? Author Blood Pressure < 130/80 Blood Pressure 134/63( 025 3:00 PM EDT) No Lidia Lo RN documented as of this encounter Visit Diagnoses Not on filedocumented in this encounter Care Teams Room Attendant Relationship Specialty Start Date End Date Samm Serrano MD PCP - General Family Medicine 05/30/12 Tom Gonzalez [address] [place] [address] Primary Staff Physician Cardiology 12/02/18 Andreas Pierre MD [address] [place] [address] Primary Staff Physician Cardiology 04/26/23 Virgil Carrillo MD [address] [place] [phone] Primary Staff Physician Cardiology 10/29/23 Jethro Mendoza MD [address] [place] [address] Primary Staff Physician Cardiology 12/26/23 Isaías Kinney MD [address] [place] [phone] Primary Staff Physician Cardiology 01/10/24 documented as of this encounter
--- OUTSIDE RECORDS SUMMARY | 2025-04-22 13:46 | XMS_ITS | Encounter Summary ---
Author Organization [facility] Address [address] [place] [address] Care Team Providers Care Agricultural Economist Name Role Phone Samm Serrano MD Primary Care Provider +-4 Tom Gonzalez Unavailable [phone] Andreas Pierre MD Unavailable Virgil Carrillo MD Unavailable Jethro Mendoza MD Unavailable Isaías Kinney MD Unavailable [phone] Source Comments In the event this information is protected by the Federal Confidentiality of Alcohol and Drug AbusePatient Records regulations: The Federal rules restrict any use of the information to criminally investigate or prosecute any alcohol or drug abuse patient.[facility] Encounter Details Date Type Department Care Team (Late st Contact Info) Description 04/23/2024 Get Medical Advice Neurology [facility] [address] [place] [address] Jesusita Esparza, RADIOLOGY THERAPIST.REFINER OPERATOR [address] [place] [address] Low Iron Test Results Social History Tobacco Use Types Packs/Day Years Used Date Smoking Tobacco: Former Cigarettes 1 10 0 04/28/1972 - 04/28/1982 Pipe Passive Smoke Exposure: Never Smokeless Tobacco: Never Alcohol Use Standard Drinks/Week Comments Yes 0 (1 standard drink = 0.6 oz pur e alcohol) rarely [facility] Utilities Answer Date Recorded In [...] a nursing home (including now)? No 03/02/2024 Area Deprivation Index Answer Date Rich rded National Score (1-100), lower number is lower ri sk 52 02/05/2024 State Score (1-10), lower number is lower risk 3 02/05/2024 Data from: https://www.neighborhoodatlas.medicine.[facility].edu/. Last address used for calculation [address] [address] 02/05/2024 Sex and Gender Information [...] 10:00 AM EDT Office Visit Cardiology [address] [place] [address] Isaías Kinney MD [address] [place] [address] DX: Chronic diastolic heart failure 09/20/2025 8:15 AM EST Procedure Cardiology [address] [place] [address] Dx. Atherosclerotic heart disease of [place] coronary artery with other forms of angina pectoris 09/20/2025 9:00 AM EST Appointment Cardiology [address] [place], [place] [phone] Dx. Atherosclerotic heart disease of [place] coronary artery with other forms of angina pectoris 09/20/2025 9:45 AM EST Office Visit Cardiology [address] [place], [place] [phone] Nj Wei MD [address] [place] [phone] Dx. Atherosclerotic heart disease of [place] coronary artery with other forms of angina pectoris documented as of this encounter Goals Goal Patient Goal Type Associated Problems Recent Progress Patient-Stated? Author Blood Pressure < 130/80 Blood Pressure 134/63( 025 3:00 PM EDT) No Lidia Lo RN documented as of this encounter Visit Diagnoses Not on filedocumented in this encounter Care Teams Agricultural Economist Relationship Specialty Start Date End Date Samm Serrano MD PCP - General Family Medicine 05/30/12 Tom Gonzalez [address] [place] [address] Primary Staff Physician Cardiology 12/02/18 Andreas Pierre MD [address] [place] [address] Primary Staff Physician Cardiology 04/26/23 Virgil Carrillo MD [address] [place], [place] [phone] Primary Staff Physician Cardiology 10/29/23 Jethro Mendoza MD [address] [place] [address] Primary Staff Physician Cardiology 12/26/23 Isaías Kinney MD [address] [place] [address] Primary Staff Physician Cardiology 01/10/24 documented as of this encounter
--- OUTSIDE RECORDS SUMMARY | 2025-04-22 13:46 | XMS_ITS | Encounter Summary ---
Author Organization [facility] Address [facility] [id number] [address] [place] [address] Care Team Providers Care Assistant Attorney General Name Role Phone Samm Serrano MD Primary Care Provider [phone] Encounter Details Date Type Department Care Team (Late st Contact Info) Description 04/13/2025 Lab Requisition [facility] - Lab [address] [place] [phone] Samm Serrano MD [address] [place] [address] Hyperkalemia; Non-ST elevation (NSTEMI) myocardial infarction ([facility]); Heart failure, unspecified ([facility]) Social History Tobacco Use Types Packs/Day Years [...] How often do you attend chur or yarsani services? Never 08/17/2021 Do you belong to any clubs o r organizations such as christianity groups, unions, fraternal or athletic groups, or [...] Answer Date Recorded Total Score 0 08/17/2021 [facility] - Occupational [...] Comments THYROID PROFILE INCLUDES TSH FT4 Routine 04/13/2025 1:27 PM EDT Hyperkalemia Non-ST elevation (NSTEMI) myocardial infarction (CMS-HCC) Heart failure, unspecified (CMS-HCC) CBC WITH AUTO DIFFERENTIAL Routine 04/13/2025 1:27 PM EDT Hyperkalemia Non-ST elevation (NSTEMI) myocardial infarction (CMS-HCC) Heart failure, unspecified (CMS-HCC) IRON AND TIBC Routine 04/13/2025 1:27 PM EDT Hyperkalemia Non-ST elevation (NSTEMI) myocardial infarction (CMS-HCC) Heart failure, unspecified (CMS-HCC) T3, FREE Routine 04/13/2025 1:27 PM EDT Hyperkalemia Non-ST elevation (NSTEMI) myocardial infarction (CMS-HCC) Heart failure, unspecified (CMS-HCC) B-TYPE NATRIURETIC PEPTIDE Routine 04/13/2025 1:27 PM EDT Hyperkalemia Non-ST elevation (NSTEMI) myocardial infarction (CMS-HCC) Heart failure, unspecified (CMS-HCC) MAGNESIUM Routine 04/13/2025 1:27 PM EDT Hyperkalemia Non-ST elevation (NSTEMI) myocardial infarction (CMS-HCC) Heart failure, unspecified (CMS-HCC) BASIC METABOLIC PANEL Routine 04/13/2025 1:27 PM EDT Hyperkalemia Non-ST elevation (NSTEMI) myocardial infarction (CMS-HCC) Heart failure, unspecified (CMS-HCC) documented in this encounter Results * (ABNORMAL) T3, free (04/13/2025 1:27 PM EDT) FREE T3 2.25(L) 2.50 - 3.90 pg/mL 04/13/2025 7:03 PM EDT [facility] Blood Venous blood / Unknown 04/13/2025 1:27 PM EDT 04/13/2025 1:55 PM EDT us Samm Serrano MD LAB BLOOD ORDERABLES Final Resu lt [facility] [address] [place] [address], [place] [phone] * Thyroid profile includes TSH FT4 (04/13/2025 1:27 PM EDT) FREE T4 1.33 0.61 - 1.60 ng/dL 04/13/2025 2:[address] [facility] TSH 0.59 0.49 - 4.67 uIU/mL 04/13/2025 2:[address] [facility] Blood Venous blood / Unknown 04/13/2025 1:27 PM EDT 04/13/2025 1:55 PM EDT us Samm Serrano MD LAB BLOOD ORDERABLES Final Resu lt [facility] [address] [place] [address], [place] * Magnesium (04/13/2025 1:27 PM EDT) MAGNESIUM 2.5 1.8 - 2.6 mg/dL 04/13/2025 2:[address] [facility] Blood Venous blood / Unknown 04/13/2025 1:27 PM EDT 04/13/2025 1:55 PM EDT us Samm Serrano MD LAB BLOOD ORDERABLES Final Resu lt [facility] [address] [place] [address], [place] * (ABNORMAL) Iron and TIBC (04/13/2025 1:27 PM EDT) IRON 46(L) 50 - 212 ug/dL 04/13/2025 7:05 PM EDT [facility] TRANSFERRIN 204 168 - 336 mg/dL 04/13/2025 7:05 PM EDT [facility] IRON BINDING 286 250 - 425 ug/dL 04/13/2025 7:05 PM EDT [facility] IRON SATURATION 16(L) 20 - 50 % SATURATION 04/13/2025 7:05 PM EDT [facility] Blood Venous blood / Unknown 04/13/2025 1:27 PM EDT 04/13/2025 1:55 PM EDT us Samm Serrano MD LAB BLOOD ORDERABLES Final Resu lt [facility] [address] [place] [address], [place] [phone] * (ABNORMAL) CBC auto differential (04/13/2025 1:27 PM EDT) WBC 4.4 4 - 11 x10E9/L 04/13/2025 2:[address] [facility] RBC Count 3.66(L) 4.1 - 5.7 X10E12/L 04/13/2025 2:[address] [facility] Hemoglobin 11.3(L) 13 - 17 g/dL 04/13/2025 2:[address] [facility] Hematocrit 33.3(L) 39 - 50 % 04/13/2025 2:[address] [facility] MCV 91 80 - 100 fL 04/13/2025 2:[address] [facility] MCH 30.9 27 - 34 pg 04/13/2025 2:[address] [facility] MCHC 33.9 32 - 36 g/dL 04/13/2025 2:[address] [facility] RDW 17.0(H) 11.5 - 15 % 04/13/2025 2:[address] [facility] Platelet Count 164 150 - 450 X10E9/L 04/13/2025 2:[address] [facility] MPV 7.8 7 - 12 fL 04/13/2025 2:[address] [facility] Neutrophils % 60.4 % 04/13/2025 2:[address] [facility] Lymphocytes % 16.3 % 04/13/2025 2:[address] [facility] Monocytes % 12.9 % 04/13/2025 2:[address] [facility] Eosinophils % 9.6 % 04/13/2025 2:[address] [facility] Basophils % 0.8 % 04/13/2025 2:[address] [facility] Neutrophils Absolute (A) 2.7 1.5 - 6.6 10*3/uL 04/13/2025 2:[address] [facility] Lymphocytes Absolute 0.7(L) 1.0 - 3.5 10*3/uL 04/13/2025 2:[address] [facility] Monocytes Absolute 0.6 0.0 - 0.9 10*3/uL 04/13/2025 2:[address] [facility] Eosinophils Absolute 0.4 0.0 - 0.4 10*3/uL 04/13/2025 2:[address] [facility] Basophils Absolute 0.0 0.0 - 0.2 10*3/uL 04/13/2025 2:[address] [facility] Differential Type AUTOMATED DIFFERENTIAL 04/13/2025 2:[address] [facility] Blood Venous blood / Unknown 04/13/2025 1:27 PM EDT 04/13/2025 1:55 PM EDT us Samm Serrano MD LAB BLOOD ORDERABLES Final Resu lt Performing Organization Address [facility]/ZIP Co de Phone Number [address] [place] [address], [place] * (ABNORMAL) B-type natriuretic peptide (04/13/2025 1:27 PM EDT) BNP 2,618(H) <=100 pg/mL 04/13/2025 2:[address] [facility] Blood Venous blood / Unknown 04/13/2025 1:27 PM EDT 04/13/2025 1:55 PM EDT us Samm Serrano MD LAB BLOOD ORDERABLES Final Resu lt [address] [place] [address], [place] * (ABNORMAL) Basic Metabolic Panel (04/13/2025 1:27 PM EDT) SODIUM 134 134 - 146 mmol/L 04/13/2025 2:[address] [facility] POTASSIUM 4.0 3.5 - 5.0 mmol/L 04/13/2025 2:[address] [facility] CHLORIDE 106 98 - 109 mmol/L 04/13/2025 2:[address] [facility] CARBON DIOXIDE 24 22 - 32 mmol/L 04/13/2025 2:[address] [facility] ANION GAP 4(L) 5 - 15 mmol/L 04/13/2025 2:[address] [facility] BLOOD UREA NITROGEN 42(H) 5 - 27 mg/dL 04/13/2025 2:[address] [facility] CREATININE 2.04(H) 0.70 - 1.20 mg/dL 04/13/2025 2:[address] [facility] Comment:METHOD TRACEABLE TO IDMS STANDARD GLUCOSE 93 65 - 99 mg/dL 04/13/2025 2:[address] [facility] CALCIUM 8.7 8.5 - 10.5 mg/dL 04/13/2025 2:[address] [facility] EGFR Non-Race Dependent 32(L) >=60 ml/min/1.7 3sq.m 04/13/2025 2:[address] [facility] Comment: eGFR not reported due to non-numeric value for Creatinine. Reported eGFR is based on the CKD-EPI 2020 equation that does not use a race coefficient. Blood Venous blood / Unknown 04/13/2025 1:27 PM EDT 04/13/2025 1:55 PM EDT us Samm Serrano MD LAB BLOOD ORDERABLES Final Resu lt [facility] [address] [place] [address], documented in this encounter Visit Diagnoses Diagnosis Hyperkalemia Hyperpotassemia Non-ST elevation (NSTEMI) myocardial infarction (CMS-HCC) Heart failure, unspecified (CMS-HCC) Heart failure, unspecified documented in this encounter Additional Health Concerns Assessment Noted Time PHQ-9 Depression Total Score: 0 08/17/20 21 12:12 PM EST documented as of this encounter Care Teams Assistant Attorney General Relationship Specialty Start Date End Date Samm Serrano MD PCP - General Family Medicine 02/26/24 documented as of this encounter
--- OUTSIDE RECORDS SUMMARY | 2025-04-22 13:46 | XMS_ITS | Encounter Summary ---
Author Organization [facility] Address [address] [place] [address] Care Team Providers Care Stump Blower Name Role Phone Samm Serrano MD Primary Care Provider [phone] Tom Gonzalez Unavailable [phone] Andreas Pierre MD Unavailable Virgil Carrillo MD Unavailable Jethro Mendoza MD Unavailable Isaías Kinney MD Unavailable [phone] Source Comments In the event this information is protected by the Federal Confidentiality of Alcohol and Drug AbusePatient Records regulations: The Federal rules restrict any use of the information to criminally investigate or prosecute any alcohol or drug abuse patient.[facility] Encounter Details Date Type Department Care Team (Late st Contact Info) Description 05/18/2021 Get Medical Advice Cardiology [address] [place], [place] [phone] Andreas Pierre MD [address] [place] [address] RE: Upcoming Appointment Question Social History Tobacco [...] N ot on file 08/21/2020 Data from: https://www.neighborhoodatlas.medicine.[facility].edu/. Last address used for calculation Not on [...] 10:00 AM EDT Office Visit Cardiology [address] [place] [address] Isaías Kinney MD [address] [place] [address] DX: Chronic diastolic heart failure 09/20/2025 8:15 AM EST Procedure Cardiology [address] [place] [address] Dx. Atherosclerotic heart disease of [place] coronary artery with other forms of angina pectoris 09/20/2025 9:00 AM EST Appointment Cardiology [address] [place] [address] Dx. Atherosclerotic heart disease of [place] coronary artery with other forms of angina pectoris 09/20/2025 9:45 AM EST Office Visit Cardiology [address] [place] [address] Nj Wei MD [address] [place] [address] Dx. Atherosclerotic heart disease of [place] coronary artery with other forms of angina pectoris documented as of this encounter Visit Diagnoses Not on filedocumented in this encounter Care Teams Stump Blower Relationship Specialty Start Date End Date Samm Serrano MD PCP - General Family Medicine 05/30/12 Carlos Tom Ulisses [address] [place] [address] Primary Staff Physician Cardiology 12/02/18 Andreas Pierre MD [address] [place] [address] Primary Staff Physician Cardiology 04/26/23 Virgil Carrillo MD [address] [place] [address] Primary Staff Physician Cardiology 10/29/23 Jethro Mendoza MD [address] [place] [address] Primary Staff Physician Cardiology 12/26/23 Isaías Kinney MD [address] [place] [address] Primary Staff Physician Cardiology 01/10/24 documented as of this encounter
--- OUTSIDE RECORDS SUMMARY | 2025-04-22 13:46 | XMS_ITS | Encounter Summary ---
Author Organization [facility] POI s tem Address [facility] [id number] [address] [place] [address] Care Team Providers Care Dial Printer Name Role Phone Samm Serrano MD Primary Care Provider [phone] Encounter Details Date Type Department Care Team (Late st Contact Info) Description 04/20/2025 Lab Requisition [facility] - Lab [address] [place] [phone] Samm Serrano MD [address] [place] [address] Hyperkalemia; Non-ST elevation (NSTEMI) myocardial infarction ([facility]); Heart failure, unspecified ([facility]) Social History Tobacco Use Types Packs/Day [...] How often do you attend chur or pentecostal services? Never 08/17/2021 Do you belong to any clubs o r organizations such as hinduism groups, unions, fraternal or athletic groups, or [...] Answer Date Recorded Total Score 0 08/17/2021 [facility] - Occupational [...] Recorded Do you need help finding a [facility] and/or a training program? [...] Comments THYROID PROFILE INCLUDES TSH FT4 Routine 04/20/2025 3:53 PM EDT Hyperkalemia Non-ST elevation (NSTEMI) myocardial infarction (CMS-HCC) Heart failure, unspecified (CMS-HCC) CBC WITH AUTO DIFFERENTIAL Routine 04/20/2025 3:53 PM EDT Hyperkalemia Non-ST elevation (NSTEMI) myocardial infarction (CMS-HCC) Heart failure, unspecified (CMS-HCC) IRON AND TIBC Routine 04/20/2025 3:53 PM EDT Hyperkalemia Non-ST elevation (NSTEMI) myocardial infarction (CMS-HCC) Heart failure, unspecified (CMS-HCC) T3, FREE Routine 04/20/2025 3:53 PM EDT Hyperkalemia Non-ST elevation (NSTEMI) myocardial infarction (CMS-HCC) Heart failure, unspecified (CMS-HCC) B-TYPE NATRIURETIC PEPTIDE Routine 04/20/2025 3:53 PM EDT Hyperkalemia Non-ST elevation (NSTEMI) myocardial infarction (CMS-HCC) Heart failure, unspecified (CMS-HCC) MAGNESIUM Routine 04/20/2025 3:53 PM EDT Hyperkalemia Non-ST elevation (NSTEMI) myocardial infarction (CMS-HCC) Heart failure, unspecified (CMS-HCC) BASIC METABOLIC PANEL Routine 04/20/2025 3:53 PM EDT Hyperkalemia Non-ST elevation (NSTEMI) myocardial infarction (CMS-HCC) Heart failure, unspecified (CMS-HCC) documented in this encounter Results * (ABNORMAL) T3, free (04/20/2025 3:53 PM EDT) FREE T3 2.28(L) 2.50 - 3.90 pg/mL 04/20/2025 10:45 PM EDT [facility] Blood Venous blood / Unknown 04/20/2025 3:53 PM EDT 04/20/2025 4:25 PM EDT Samm Serrano MD LAB BLOOD ORDERABLES Final Resu lt [facility] [address] [place] [id number], [place] [phone] * (ABNORMAL) Thyroid profile includes TSH FT4 (04/20/2025 3:53 PM EDT) FREE T4 1.29 0.61 - 1.60 ng/dL 04/20/2025 6:16 PM EDT [facility] TSH 0.34(L) 0.49 - 4.67 uIU/mL 04/20/2025 6:16 PM EDT [facility] Blood Venous blood / Unknown 04/20/2025 3:53 PM EDT 04/20/2025 4:25 PM EDT us Smam Serrano MD LAB BLOOD ORDERABLES Final Resu lt [facility] [address] [place] [address], [place] * (ABNORMAL) Magnesium (04/20/2025 3:53 PM EDT) MAGNESIUM 2.8(H) 1.8 - 2.6 mg/dL 04/20/2025 4:53 PM EDT [facility] Blood Venous blood / Unknown 04/20/2025 3:53 PM EDT 04/20/2025 4:25 PM EDT us Samm Serrano MD LAB BLOOD ORDERABLES Final Resu lt [address] [place] [address], [place] * (ABNORMAL) Iron and TIBC (04/20/2025 3:53 PM EDT) IRON 41(L) 50 - 212 ug/dL 04/20/2025 10:37 PM EDT [facility] TRANSFERRIN 223 168 - 336 mg/dL 04/20/2025 10:37 PM EDT [facility] IRON BINDING 312 250 - 425 ug/dL 04/20/2025 10:37 PM EDT [facility] IRON SATURATION 13(L) 20 - 50 % SATURATION 04/20/2025 10:37 PM EDT [facility] Blood Venous blood / Unknown 04/20/2025 3:53 PM EDT 04/20/2025 4:25 PM EDT us Samm Serrano MD LAB BLOOD ORDERABLES Final Resu lt [facility] [address] [place] [address], [place] [phone] * (ABNORMAL) CBC auto differential (04/20/2025 3:53 PM EDT) WBC 6.0 4 - 11 x10E9/L 04/20/2025 4:34 PM EDT [facility] RBC Count 3.87(L) 4.1 - 5.7 X10E12/L 04/20/2025 4:34 PM EDT [facility] Hemoglobin 11.6(L) 13 - 17 g/dL 04/20/2025 4:34 PM EDT [facility] Hematocrit 34.8(L) 39 - 50 % 04/20/2025 4:34 PM EDT [facility] MCV 90 80 - 100 fL 04/20/2025 4:34 PM EDT [facility] MCH 30.0 27 - 34 pg 04/20/2025 4:34 PM EDT [facility] MCHC 33.4 32 - 36 g/dL 04/20/2025 4:34 PM EDT [facility] RDW 16.9(H) 11.5 - 15 % 04/20/2025 4:34 PM EDT [facility] Platelet Count 188 150 - 450 X10E9/L 04/20/2025 4:34 PM EDT [facility] MPV 8.2 7 - 12 fL 04/20/2025 4:34 PM EDT [facility] Neutrophils % 85.8 % 04/20/2025 4:34 PM EDT [facility] Lymphocytes % 6.3 % 04/20/2025 4:34 PM EDT [facility] Monocytes % 7.9 % 04/20/2025 4:34 PM EDT [facility] Eosinophils % 0.0 % 04/20/2025 4:34 PM EDT [facility] Basophils % 0.0 % 04/20/2025 4:34 PM EDT [facility] Neutrophils Absolute (A) 5.1 1.5 - 6.6 10*3/uL 04/20/2025 4:34 PM EDT [facility] Lymphocytes Absolute 0.4(L) 1.0 - 3.5 10*3/uL 04/20/2025 4:34 PM EDT [facility] Monocytes Absolute 0.5 0.0 - 0.9 10*3/uL 04/20/2025 4:34 PM EDT [facility] Eosinophils Absolute 0.0 0.0 - 0.4 10*3/uL 04/20/2025 4:34 PM EDT [facility] Basophils Absolute 0.0 0.0 - 0.2 10*3/uL 04/20/2025 4:34 PM EDT [facility] Differential Type AUTOMATED DIFFERENTIAL 04/20/2025 4:34 PM EDT [facility] Blood Venous blood / Unknown 04/20/2025 3:53 PM EDT 04/20/2025 4:25 PM EDT us Samm Serrano MD LAB BLOOD ORDERABLES Final Resu lt Performing Organization Address City/[facility]/ZIP Co de Phone Number [address] [place] [address], [place] * (ABNORMAL) B-type natriuretic peptide (04/20/2025 3:53 PM EDT) BNP >5,000(H) <=100 pg/mL 04/20/2025 6:18 PM EDT [facility] Blood Venous blood / Unknown 04/20/2025 3:53 PM EDT 04/20/2025 4:25 PM EDT us Samm Serrano MD LAB BLOOD ORDERABLES Final Resu lt [address] [place] [address], [place] * (ABNORMAL) Basic Metabolic Panel (04/20/2025 3:53 PM EDT) SODIUM 132(L) 134 - 146 mmol/L 04/20/2025 4:53 PM EDT [facility] POTASSIUM 4.7 3.5 - 5.0 mmol/L 04/20/2025 4:53 PM EDT [facility] CHLORIDE 102 98 - 109 mmol/L 04/20/2025 4:53 PM EDT [facility] CARBON DIOXIDE 21(L) 22 - 32 mmol/L 04/20/2025 4:53 PM EDT [facility] ANION GAP 9 5 - 15 mmol/L 04/20/2025 4:53 PM EDT [facility] BLOOD UREA NITROGEN 95(H) 5 - 27 mg/dL 04/20/2025 4:53 PM EDT [facility] CREATININE 2.49(H) 0.70 - 1.20 mg/dL 04/20/2025 4:53 PM EDT [facility] Comment:METHOD TRACEABLE TO IDMS STANDARD GLUCOSE 151(H) 65 - 99 mg/dL 04/20/2025 4:53 PM EDT [facility] CALCIUM 8.5 8.5 - 10.5 mg/dL 04/20/2025 4:53 PM EDT [facility] EGFR Non-Race Dependent 25(L) >=60 ml/min/1.7 3sq.m 04/20/2025 4:53 PM EDT [facility] Comment: eGFR not reported due to non-numeric value for Creatinine. Reported eGFR is based on the CKD-EPI 2020 equation that does not use a race coefficient. Blood Venous blood / Unknown 04/20/2025 3:53 PM EDT 04/20/2025 4:25 PM EDT us Samm Serrano MD LAB BLOOD ORDERABLES Final Resu lt [facility] [address] [place] [address], documented in this encounter Visit Diagnoses Diagnosis Hyperkalemia Hyperpotassemia Non-ST elevation (NSTEMI) myocardial infarction ([facility]) Heart failure, unspecified ([facility]) Heart failure, unspecified documented in this encounter Additional Health Concerns Assessment Noted Time PHQ-9 Depression Total Score: 0 08/17/20 21 12:12 PM EST documented as of this encounter Care Teams Dial Printer Relationship Specialty Start Date End Date Samm Serrano MD PCP - General Family Medicine 02/26/24 documented as of this encounter
--- OUTSIDE RECORDS SUMMARY | 2025-04-22 13:46 | XMS_ITS | Encounter Summary ---
Author Organization [facility] Address [address] [place] [address] Care Team Providers Care Roving Inspector Name Role Phone Samm Serrano MD Primary Care Provider [phone] Tom Gonzalez Unavailable [phone] Andreas Pierre MD Unavailable Virgil Carrillo MD Unavailable Jethro Mendoza MD Unavailable Isaías Kinney MD Unavailable [phone] Source Comments In the event this information is protected by the Federal Confidentiality of Alcohol and Drug AbusePatient Records regulations: The Federal rules restrict any use of the information to criminally investigate or prosecute any alcohol or drug abuse patient.[facility] Encounter Details Date Type Department Care Team (Late st Contact Info) Description 04/22/2024 Get Medical Advice Cardiology [address] [place], [place] [phone] Isaías Kinney MD [address] [place] [address] [place] Social History Tobacco Use Types Packs/Day Years Used Date Smoking Tobacco: Former Cigarettes 1 10 0 04/28/1972 - 04/28/1982 Pipe Passive Smoke Exposure: Never Smokeless Tobacco: Never Alcohol Use Standard Drinks/Week Comments Yes 0 (1 standard drink = 0.6 oz pur e alcohol) rarely [facility] Utilities Answer Date Recorded In [...] in a correction (including now)? No 03/02/2024 Area Deprivation Index Answer Date Rich rded National Score (1-100), lower number is lower ri sk 52 02/05/2024 State Score (1-10), lower number is lower risk 3 02/05/2024 Data from: https://www.neighborhoodatlas.medicine.[facility]/. Last address used for calculation [address] [place] [address] [address] 02/05/2024 Sex and Gender Information [...] 10:00 AM EDT Office Visit Cardiology [address] [place] [address] Isaías Kinney MD [address] [place] [phone] DX: Chronic diastolic heart failure 09/20/2025 8:15 AM EST Procedure Cardiology [address] [place] [id number] Dx. Atherosclerotic heart disease of [place] coronary artery with other forms of angina pectoris 09/20/2025 9:00 AM EST Appointment Cardiology [address] [place], [place] [phone] Dx. Atherosclerotic heart disease of [place] coronary artery with other forms of angina pectoris 09/20/2025 9:45 AM EST Office Visit Cardiology [address] [place], [place] [phone] Nj Wei MD [address] [place] [address] Dx. Atherosclerotic heart disease of [place] coronary artery with other forms of angina pectoris documented as of this encounter Goals Goal Patient Goal Type Associated Problems Recent Progress Patient-Stated? Author Blood Pressure < 130/80 Blood Pressure 134/63( 025 3:00 PM EDT) Lidia Soto RN documented as of this encounter Visit Diagnoses Not on filedocumented in this encounter Care Teams Roving Inspector Relationship Specialty Start Date End Date Samm Serrano MD PCP - General Family Medicine 05/30/12 Tom Gonzalez [address] [place] [address] Primary Staff Physician Cardiology 12/02/18 Andreas Pierre MD [address] [place] [phone] Primary Staff Physician Cardiology 04/26/23 Virgil Carrillo MD [address] [place] [phone] Primary Staff Physician Cardiology 10/29/23 Jethro Mendoza MD [address] [place] [address] Primary Staff Physician Cardiology 12/26/23 Isaías Kinney MD [address] [place] [address] Primary Staff Physician Cardiology 01/10/24 documented as of this encounter
--- OUTSIDE RECORDS SUMMARY | 2025-04-22 13:47 | XMS_ITS | Encounter Summary ---
Author Organization [facility] Address [address] [place] [address] Care Team Providers Care Talent Solutions Manager Name Role Phone Samm Serrano MD Primary Care Provider [phone] Encounter Details Date Type Department Care Team (Late st Contact Info) Description 04/16/2025 Orders Only [facility] [address] [place] [address] Nidia Pa MA Pleural effusion (Primary Dx) Social History Tobacco Use Types Packs/Day Years Used Date Smoking Tobacco: Former Cigarettes Smokeless Tobacco: Never Alcohol Use Standard Drinks/Week Comments Not Currently 0 (1 standard drink = 0.6 oz pur e alcohol) [facility] Utilities Answer Date Recorded In the past 12 months has e electric, gas, oil, or water company [...] any time in the past 12 m [facility], were you homeless or living in a long term (including now)? No 03/05/2025 Hunger Vital Sign [...] Description 04/26/2025 2:30 PM EDT Office Visit [facility] [address] [place] [phone] Ozzie Crain MD [address] [facility] [address] [facility] [place] [phone] Scheduled Orders Name Type Priority Associated Diagnoses Orde r Schedule XR chest 2 views Imaging Routine Pleural effusion Expected: 04/16/2025, Expires: 04/16/2026 documented as of this encounter Visit Diagnoses Diagnosis Pleural effusion- Primary Unspecified pleural effusion documented in this encounter Care Teams Talent Solutions Manager Relationship Specialty Start Date End Date Samm Serrano MD [address] [facility] [address] [address] PCP - General 05/16/22 documented as of this encounter
--- OUTSIDE RECORDS SUMMARY | 2025-04-22 13:47 | XMS_ITS | Encounter Summary ---
Author Organization [facility] [place] [employer] [facility] tem Address [id number] [address] [place] [address] Care Team Providers Care Parole Board Member Name Role Phone Samm eSrrano MD Primary Care Provider [phone] Encounter Details Date Type Department Care Team (Late st Contact Info) Description 01/18/2025 Lab Requisition [facility] - Lab [address] [place] [phone] Samm Serrano MD [address] [place] [address] Hyperkalemia; 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 disease, or unspecified chronic kidney disease (CMS-HCC); Chronic systolic (congestive) heart failure (CMS-HCC); 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 Never 08/17/2021 Do you belong to any clubs o r organizations such as episcopal groups, unions, fraternal or athletic groups, or [...] Answer Date Recorded Total Score 0 08/17/2021 [facility] - Occupational Stress [...] kidney disease, or unspecified chronic kidney disease ([facility]) Chronic systolic (congestive) heart failure ([facility]) 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[facility]) Hypothyroidism, unspecified Gout, unspecified VITAMIN D 25 HYDROXY Routine 01/18/2025 12:19 PM EDT Hyperkalemia 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 disease, or unspecified chronic kidney disease (CMS-HCC) Chronic systolic (congestive) heart failure ([facility]) 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[facility]) Hypothyroidism, unspecified Gout, unspecified URIC ACID Routine 01/18/2025 12:19 PM EDT Hyperkalemia 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 disease, or unspecified chronic kidney disease (CMS-HCC) Chronic systolic (congestive) heart failure ([facility]) 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[facility]) Hypothyroidism, unspecified Gout, unspecified T3, FREE Routine 01/18/2025 12:19 PM EDT Hyperkalemia 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 disease, or unspecified chronic kidney disease (CMS-HCC) Chronic systolic (congestive) heart failure (CMS-HCC) 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[facility]) Hypothyroidism, unspecified Gout, unspecified B-TYPE NATRIURETIC PEPTIDE Routine 01/18/2025 12:19 PM EDT Hyperkalemia 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 disease, or unspecified chronic kidney disease (CMS-HCC) Chronic systolic (congestive) heart failure (CMS-HCC) 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[facility]) Hypothyroidism, unspecified Gout, unspecified MAGNESIUM Routine 01/18/2025 12:19 PM EDT Hyperkalemia 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 disease, or unspecified chronic kidney disease (CMS-HCC) Chronic systolic (congestive) heart failure (CMS-HCC) 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[facility]) Hypothyroidism, unspecified Gout, unspecified LIPID PROFILE Routine 01/18/2025 12:19 PM EDT Hyperkalemia 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 disease, or unspecified chronic kidney disease (CMS-HCC) Chronic systolic (congestive) heart failure (CMS-HCC) 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[facility]) Hypothyroidism, unspecified Gout, unspecified COMPREHENSIVE METABOLIC PANEL Routine 01/18/2025 12:19 PM EDT Hyperkalemia 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 disease, or unspecified chronic kidney disease (CMS-HCC) Chronic systolic (congestive) heart failure (CMS-HCC) 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 TRIGLYCERIDE 51 27 - 150 mg/dL 01/19/2025 6:47 PM EDT [facility] HDL CHOLESTEROL 46 >39 mg/dL 6:47 PM EDT [facility] Comment: HDL <40 mg/dL - High Risk HDL > or = 40mg/dL- Desirable HDL >60 mg/dL - Negative Risk LDL (CALC) 88 <130 mg/dL 01/19/2025 6:47 PM EDT [facility] Comment: LDL <100 mg/dL - Desirable LDL >160 mg/dL - High Risk CHOLESTEROL:HDL 3.1 1.0 - 5.0 6:47 PM EDT [facility] VERY LOW LIPOPROTEIN 10 0 - 30 mg/dL 01/19/2025 6:47 PM EDT [facility] Blood Venous blood / Unknown Venipuncture / Unknown 01/18/2025 12:19 PM EDT 01/18/2025 1:34 PM EDT us Samm Serrano MD LAB BLOOD ORDERABLES Final Resu lt [facility] [address] [place] [address], [place] [phone] * Vitamin D 25 hydroxy (01/18/2025 12:19 PM EDT) VITAMIN D 25 HYD TOT 41.6 30.0 - 100.0 ng/mL 01/19/2025 7:06 PM EDT [facility] Blood Venous blood / Unknown Venipuncture / Unknown 01/18/2025 12:19 PM EDT 01/18/2025 1:34 PM EDT Narrative [facility] - 01/19/2025 7:06 PM EDT Vitamin D status 25 [place] Vitamin D Deficiency <20 ng/mL Insufficiency 20-29 ng/mL Sufficiency 30-100 ng/mL Toxicity >100 ng/mL NOTE: A pediatric reference range has not been established by the speech writer of this kit. The [place] [employer] recommends a Vitamin D level of = or >20ng/mL in infants and children. us Samm Serrano MD LAB BLOOD ORDERABLES Final Resu lt [facility] [address] [place] [address], [place] [phone] * (ABNORMAL) Comprehensive metabolic panel (01/18/2025 12:19 PM EDT) SODIUM 134 134 - 146 mmol/L 01/18/2025 2:52 PM EDT [facility] POTASSIUM 3.9 3.5 - 5.0 mmol/L 01/18/2025 2:52 PM EDT [facility] CHLORIDE 102 98 - 109 mmol/L 01/18/2025 2:52 PM EDT [facility] CARBON DIOXIDE 23 22 - 32 mmol/L 01/18/2025 2:52 PM EDT [facility] ANION GAP 9 5 - 15 mmol/L 01/18/2025 2:52 PM EDT [facility] BLOOD UREA NITROGEN 58(H) 5 - 27 mg/dL 01/18/2025 2:52 PM EDT [facility] CREATININE 2.03(H) 0.70 - 1.20 mg/dL 01/18/2025 2:52 PM EDT [facility] Comment:METHOD TRACEABLE TO IDMS STANDARD GLUCOSE 93 65 - 99 mg/dL 01/18/2025 2:52 PM EDT [facility] CALCIUM 8.9 8.5 - 10.5 mg/dL 01/18/2025 2:52 PM EDT [facility] TOTAL PROTEIN 7.3 6.0 - 8.0 g/dL 01/18/2025 2:52 PM EDT [facility] ALBUMIN 3.5 3.2 - 5.3 g/dL 01/18/2025 2:52 PM EDT [facility] ALKALINE PHOSPHATASE 118 39 - 130 U/L 01/18/2025 2:52 PM EDT [facility] AST 24 <=41 U/L 01/18/2025 2:52 PM EDT [facility] ALT 12 <=40 U/L 01/18/2025 2:52 PM EDT [facility] BILIRUBIN,TOTAL 1.2 0.3 - 1.2 mg/dL 01/18/2025 2:52 PM EDT [facility] EGFR Non-Race Dependent 32(L) >=60 ml/min/1.7 3sq.m 01/18/2025 2:52 PM EDT [facility] Comment: eGFR not reported due to non-numeric value for Creatinine. Reported eGFR is based on the CKD-EPI 2020 equation that does not use a race coefficient. Blood Venous blood / Unknown Venipuncture / Unknown 01/18/2025 12:19 PM EDT 01/18/2025 1:34 PM EDT us Samm Srerano MD LAB BLOOD ORDERABLES Final Resu lt [facility] [address] [facility] [place] [address], * (ABNORMAL) Uric acid (01/18/2025 12:19 PM EDT) URIC ACID 11.4(H) 2.6 - 7.2 mg/dL 01/18/2025 2:51 PM EDT [facility] Blood Venous blood / Unknown Venipuncture / Unknown 01/18/2025 12:19 PM EDT 01/18/2025 1:34 PM EDT us Samm Serrano MD LAB BLOOD ORDERABLES Final Resu lt [address] [place] [place] [address], [place] * (ABNORMAL) Thyroid profile includes TSH FT4 (01/18/2025 12:19 PM EDT) FREE T4 1.29 0.61 - 1.60 ng/dL 01/18/2025 2:51 PM EDT [facility] TSH 8.64(H) 0.49 - 4.67 uIU/mL 01/18/2025 2:51 PM EDT [facility] Blood Venous blood / Unknown Venipuncture / Unknown 01/18/2025 12:19 PM EDT 01/18/2025 1:34 PM EDT us Samm Serrano MD LAB BLOOD ORDERABLES Final Resu lt Performing Organization Address [facility]/ZIP Co de Phone Number [address] [place] [place] [address], [place] * (ABNORMAL) T3, free (01/18/2025 12:19 PM EDT) FREE T3 2.15(L) 2.50 - 3.90 pg/mL 01/19/2025 6:53 PM EDT [facility] Blood Venous blood / Unknown Venipuncture / Unknown 01/18/2025 12:19 PM EDT 01/18/2025 1:34 PM EDT us Samm Serrano MD LAB BLOOD ORDERABLES Final Resu lt [facility] [address] [place] [address], [place] [phone] * Magnesium (01/18/2025 12:19 PM EDT) MAGNESIUM 2.6 1.8 - 2.6 mg/dL 01/18/2025 2:51 PM EDT [facility] Blood Venous blood / Unknown Venipuncture / Unknown 01/18/2025 12:19 PM EDT 01/18/2025 1:34 PM EDT us Samm Serrano MD LAB BLOOD ORDERABLES Final Resu lt Performing Organization Address City/[facility]/ZIP Co de Phone Number [address] [place] [address], * (ABNORMAL) B-type natriuretic peptide (01/18/2025 12:19 PM EDT) BNP 2,720(H) <=100 pg/mL 01/18/2025 2:51 PM EDT [facility] Blood Venous blood / Unknown Venipuncture / Unknown 01/18/2025 12:19 PM EDT 01/18/2025 1:34 PM EDT us Samm Serrano MD LAB BLOOD ORDERABLES Final Resu lt Performing Organization Address City/[facility]/ZIP Co de Phone Number [address] [place] [address], documented in this encounter Visit Diagnoses Diagnosis [...] documented as of this encounter Care Teams Parole Board Member Relationship Specialty Start Date End Date Samm Serrano MD PCP - General Family Medicine 02/26/24 documented as of this encounter
--- OUTSIDE RECORDS SUMMARY | 2025-04-22 13:47 | XMS_ITS | Encounter Summary ---
Author Organization [facility] Address [address] [place] [address] Care Team Providers Care Trading Floor Operator Name Role Phone Samm Serrano MD Primary Care Provider [phone] Encounter Details Date Type Department Care Team (Late st Contact Info) Description 04/08/2025 Telephone [facility] [address] [place] [address] Radha Galindo MA Social History Tobacco Use Types Packs/Day Years Used Date Smoking Tobacco: Former Cigarettes Smokeless Tobacco: Never Alcohol Use Standard Drinks/Week Comments Not Currently 0 (1 standard drink = 0.6 oz pur e alcohol) [facility] Utilities Answer Date Recorded In the past 12 months has [facility] [employer], gas, oil, or water [employer] threatened to shut off services in your [...] any time in the past 12 m [facility], were you homeless or living in [...] Telephone Encounter - Radha Galindo MA - 04/08/2025 4:33 PM EDT Spoke to daughter Charu. Advised daughter per Jesenia Rivera patients phosphorus is normal, Liverenzymes are stable, Albumin is low, Ammonia is normal. Daughter verbalized understanding documented in this encounter Plan of Treatment Upcoming Encounters Date Type Department Care Team (Late st Contact Info) Description 04/26/2025 2:30 PM EDT Office Visit [facility] Heart at [facility] [address] [place] [address] Ozzie Crain MD [address] [facility] [address] [place] [phone] documented as of this encounter Visit Diagnoses Not on filedocumented in this encounter Care Teams Trading Floor Operator Relationship Specialty Start Date End Date Samm Serrano MD [address] [facility] [place] [address] PCP - General 05/16/22 documented as of this encounter
--- OUTSIDE RECORDS SUMMARY | 2025-04-22 13:47 | XMS_ITS | Encounter Summary ---
Author Organization [facility] [employer] Address [id number] [address] [place] [address] Care Team Providers Care Glue Drier Operator Name Role Phone Samm Serrano MD Primary Care Provider [phone] Encounter Details Date Type Department Care Team (Late st Contact Info) Description 01/11/2025 Lab Requisition [facility] - Lab [address] [place] [phone] Samm Serrano MD [address] [place] [address] Hypokalemia; Chronic kidney disease, unspecified Social History [...] often do you attend chur ch or yarsani services? Never 08/17/2021 Do you belong to any clubs o r organizations such as jain groups, unions, fraternal or athletic groups, or [...] 0 08/17/2021 [facility] - Occupational Stress Questionnaire Answer Date [...] - 11 x10E9/L 01/11/2025 2:39 PM EDT [facility] RBC Count 3.87(L) 4.1 - 5.7 X10E12/L 01/11/2025 2:39 PM EDT [facility] Hemoglobin 11.8(L) 13 - 17 g/dL 01/11/2025 2:39 PM EDT [facility] Hematocrit 36.0(L) 39 - 50 % 01/11/2025 2:39 PM EDT [facility] MCV 93 80 - 100 fL 01/11/2025 2:39 PM EDT [facility] MCH 30.6 27 - 34 pg 01/11/2025 2:39 PM EDT [facility] MCHC 32.9 32 - 36 g/dL 01/11/2025 2:39 PM EDT [facility] RDW 18.5(H) 11.5 - 15 % 01/11/2025 2:39 PM EDT [facility] Platelet Count 148(L) 150 - 450 X10E9/L 01/11/2025 2:39 PM EDT [facility] MPV 8.5 7 - 12 fL 01/11/2025 2:39 PM EDT [facility] Neutrophils % 60.7 % 01/11/2025 2:39 PM EDT [facility] Lymphocytes % 21.6 % 01/11/2025 2:39 PM EDT [facility] Monocytes % 10.7 % 01/11/2025 2:39 PM EDT [facility] Eosinophils % 6.5 % 01/11/2025 2:39 PM EDT [facility] Basophils % 0.5 % 01/11/2025 2:39 PM EDT [facility] Neutrophils Absolute (A) 3.1 10*3/uL 01/11/2025 2:39 PM EDT [facility] Lymphocytes Absolute 1.1 10*3/uL 01/11/2025 2:39 PM EDT [facility] Monocytes Absolute 0.6 10*3/uL 01/11/2025 2:39 PM EDT [facility] Eosinophils Absolute 0.3 10*3/uL 01/11/2025 2:39 PM EDT [facility] Basophils Absolute 0.0 10*3/uL 01/11/2025 2:39 PM EDT [facility] Differential Type AUTOMATED DIFFERENTIAL 01/11/2025 2:39 PM EDT [facility] Blood Venous blood / Unknown 01/11/2025 1:10 PM EDT 01/11/2025 2:31 PM EDT us Samm Serrano MD LAB BLOOD ORDERABLES Final Resu lt [facility] [address] [facility] [place] [address], * (ABNORMAL) Comprehensive metabolic panel (01/11/2025 1:10 PM EDT) SODIUM 136 134 - 146 mmol/L 01/11/2025 2:47 PM EDT [facility] POTASSIUM 4.1 3.5 - 5.0 mmol/L 01/11/2025 2:47 PM EDT [facility] CHLORIDE 103 98 - 109 mmol/L 01/11/2025 2:47 PM EDT [facility] CARBON DIOXIDE 26 22 - 32 mmol/L 01/11/2025 2:47 PM EDT [facility] ANION GAP 7 5 - 15 mmol/L 01/11/2025 2:47 PM EDT [facility] BLOOD UREA NITROGEN 49(H) 5 - 27 mg/dL 01/11/2025 2:47 PM EDT [facility] CREATININE 1.80(H) 0.70 - 1.20 mg/dL 01/11/2025 2:47 PM EDT [facility] Comment:METHOD TRACEABLE TO IDMS STANDARD GLUCOSE 80 65 - 99 mg/dL 01/11/2025 2:47 PM EDT [facility] CALCIUM 8.7 8.5 - 10.5 mg/dL 01/11/2025 2:47 PM EDT [facility] TOTAL PROTEIN 7.3 6.0 - 8.0 g/dL 01/11/2025 2:47 PM EDT [facility] ALBUMIN 3.4 3.2 - 5.3 g/dL 01/11/2025 2:47 PM EDT [facility] ALKALINE PHOSPHATASE 126 39 - 130 U/L 01/11/2025 2:47 PM EDT [facility] AST 21 <=41 U/L 01/11/2025 2:47 PM EDT [facility] ALT 13 <=40 U/L 01/11/2025 2:47 PM EDT [facility] BILIRUBIN,TOTAL 0.9 0.3 - 1.2 mg/dL 01/11/2025 2:47 PM EDT [facility] EGFR Non-Race Dependent 37(L) >=60 ml/min/1.7 3sq.m 01/11/2025 2:47 PM EDT [facility] Comment: eGFR not reported due to non-numeric value for Creatinine. Reported eGFR is based on the CKD-EPI 2020 equation that does not use a race coefficient. Blood Venous blood / Unknown 01/11/2025 1:10 PM EDT 01/11/2025 2:31 PM EDT us Samm Serrano MD LAB BLOOD ORDERABLES Final Resu lt [facility] [address] [facility] [place] [address], documented in this encounter Visit Diagnoses Diagnosis Hypokalemia Hypopotassemia Chronic kidney disease, unspecified documented in this encounter Additional Health Concerns Assessment Noted Time PHQ-9 Depression Total Score: 0 08/17/20 21 12:12 PM EST documented as of this encounter Care Teams Glue Drier Operator Relationship Specialty Start Date End Date Samm Serrano MD PCP - General Family Medicine 02/26/24 documented as of this encounter
--- OUTSIDE RECORDS SUMMARY | 2025-04-22 13:47 | XMS_ITS | Encounter Summary ---
Author Organization [facility] Address [address] [place] [address] Care Team Providers Care Highway Painter Name Role Phone Samm Serrano MD Primary Care Provider [phone] Encounter Details Date Type Department Care Team (Late st Contact Info) Description 04/15/2025 Telephone [facility] [address] [place] [phone] Sunny Kendall MD [address] [place] [address] Social History Tobacco Use Types Packs/Day Years Used Date Smoking Tobacco: Former Cigarettes Smokeless Tobacco: Never Alcohol Use Standard Drinks/Week Comments Not Currently 0 (1 standard drink = 0.6 oz pur e alcohol) [facility] Utilities Answer Date Recorded In the past 12 months has [employer], gas, oil, or water [employer] threatened to shut off services in your [...] any time in the past 12 m [facility], were you homeless or living in a detention (including now)? No 03/05/2025 Hunger Vital Sign [...] encounter Miscellaneous Notes * Telephone Encounter - Sunny Kendall MD - 04/15/2025 11:48 PM EDT Patient had x-ray on 04/14/2025 which showed moderate size left pleural effusion which is larger than what it was noticed on prior chest x-ray in February therefore please send the patient to have Bumex IV infusion as ordered on 04/16/2025. Also please let him do BNP and BMP the same-day and repeat chest x-ray Saturday documented in this encounter Plan of Treatment Upcoming Encounters Date Type Department Care Team (Late st Contact Info) Description 04/26/2025 2:30 PM EDT Office Visit [facility] at [facility] [address] [place] [phone] Ozzie Crain MD [address] [facility] [place] [address] documented as of this encounter Visit Diagnoses Not on filedocumented in this encounter Care Teams Highway Painter Relationship Specialty Start Date End Date Samm Serrano MD [address] [facility] [address] [address] PCP - General 05/16/22 documented as of this encounter
--- OUTSIDE RECORDS SUMMARY | 2025-04-22 13:47 | XMS_ITS | Encounter Summary ---
Author Organization [facility] Address [address] [place] [address] Care Team Providers Care Seal Mixing Operator Name Role Phone Samm Serrano MD Primary Care Provider [phone] Encounter Details Date Type Department Care Team (Late st Contact Info) Description 04/14/2025 Orders Only [facility] [address] [place] [address] Nidia Pa MA Edema, unspecified type (Primary Dx) Social History Tobacco Use Types Packs/Day Years Used Date Smoking Tobacco: Former Cigarettes Smokeless Tobacco: Never Alcohol Use Standard Drinks/Week Comments Not Currently 0 (1 standard drink = 0.6 oz pur e alcohol) [facility] Utilities Answer Date Recorded In the past 12 months has [facility] [employer], gas, oil, or water [employer] threatened to shut off services in your [...] Description 04/26/2025 2:30 PM EDT Office Visit [facility] [address] [place] [address] Ozzie Crain MD [address] [facility] [address] [facility] [place] [address] Scheduled Orders Name Type Priority Associated Diagnoses Orde r Schedule XR chest 2 views Imaging Routine Edema, unspecified type Expected: 04/14/2025, Expires: 04/14/2026 documented as of this encounter Visit Diagnoses Diagnosis Edema, unspecified type- Primary documented in this encounter Care Teams Seal Mixing Operator Relationship Specialty Start Date End Date Samm Serrano MD [address] [address] PCP - General 05/16/22 documented as of this encounter
--- OUTSIDE RECORDS SUMMARY | 2025-04-22 13:47 | XMS_ITS | Encounter Summary ---
Author Organization [facility] Address [address] [place] [address] Care Team Providers Care Instructor Dancing Name Role Phone Samm Serrano MD Primary Care Provider [phone] Encounter Details Date Type Department Care Team (Late st Contact Info) Description 04/14/2025 Telephone [facility] [address] [place] [address] Nidia Pa MA Social History Tobacco Use Types Packs/Day Years Used Date Smoking Tobacco: Former Cigarettes Smokeless Tobacco: Never Alcohol Use Standard Drinks/Week Comments Not Currently 0 (1 standard drink = 0.6 oz pur e alcohol) [facility] Utilities Answer Date Recorded In the past 12 months has [facility] electric, gas, oil, or water [...] in the past 12 m [facility], were you homeless or living in a halfway (including now)? No 03/05/2025 Hunger Vital Sign [...] encounter Miscellaneous Notes * Telephone Encounter - Conchita Rivera CNP - 04/14/2025 10:28 AM EDT Can do a CXR. Let PCP know. Thanks * Telephone Encounter - Conchita Rivera CNP - 04/14/2025 9:05 AM EDT How is his weight? How is his breathing? documented in this encounter Plan of Treatment Upcoming Encounters Date Type Department Care Team (Late st Contact Info) Description 04/26/2025 2:30 PM EDT Office Visit [place] [address] [place] [address] Ozzie Crain MD [address] [place] [address] documented as of this encounter Visit Diagnoses Not on filedocumented in this encounter Care Teams Instructor Dancing Relationship Specialty Start Date End Date Samm Serrano MD [address] [place] [address] PCP - General 05/16/22 documented as of this encounter
--- OUTSIDE RECORDS SUMMARY | 2025-04-22 13:47 | XMS_ITS | Encounter Summary ---
Author Organization [facility] Address [address] [place] [address] Care Team Providers Care Track Man Name Role Phone Samm Serrano MD Primary Care Provider [phone] Tom Gonzalez Unavailable [phone] Andreas Pierre MD Unavailable Virgil Carrillo MD Unavailable Jethro Mendoza MD Unavailable Isaías Kinney MD Unavailable [phone] Source Comments In the event this information is protected by the Federal Confidentiality of Alcohol and Drug AbusePatient Records regulations: The Federal rules restrict any use of the information to criminally investigate or prosecute any alcohol or drug abuse patient.[facility] Encounter Details Date Type Department Care Team (Late st Contact Info) Description 04/13/2025 Patient [place] [address] [place] [address] [place] [address] [place] [address] Social History Tobacco Use Types Packs/Day Years Used Date Smoking Tobacco: Former Cigarettes 1 10 0 04/28/1972 - 04/28/1982 Pipe Passive Smoke Exposure: Never Smokeless Tobacco: Never Alcohol Use Standard Drinks/Week Comments Not Currently 0 (1 standard drink = 0.6 oz pur e alcohol) rarely [facility] Utilities Answer Date Recorded In [...] or living in a retirement (including now)? Yes 07/22/2024 Area Deprivation Index Answer Date Rich rded National Score (1-100), lower number is lower ri sk 52 02/05/2024 State Score (1-10), lower number is lower risk 3 02/05/2024 Data from: https://www.neighborhoodatlas.[facility]/. Last address used for calculation [address] 02/05/2024 Sex and [...] No 03/03/2025 3:03 PM EDAkosua Hamilton RN * Because of a physical, mental, [...] documented in this encounter Progress Notes * Allyn Katz 04/13/2025 10:52 AM EDTSummary: KCCQ-12 AMB TVT FOLLOWUP: Follow Up Type: Phone Call Call Attempt: 1st Attempt Call Status: Left Message and Patient Refused Patient immediately returned call. He agreed to complete but was unable to state answers, saying itwas too difficult to answer them. documented in this encounter Plan of Treatment Upcoming Encounters Date Type Department Care Team (Latest Contact Info) Description 06/30/2025 10:00 AM EDT Office Visit Cardiology [address] [place], [place] [phone] Isaías Kinney MD [address] [place] [address] DX: Chronic diastolic heart failure 09/20/2025 8:15 AM EST Procedure Cardiology [address] [place], [place] [phone] Dx. Atherosclerotic heart disease of [place] coronary artery with other forms of angina pectoris 09/20/2025 9:00 AM EST Appointment Cardiology [address] [place], [place] [phone] Dx. Atherosclerotic heart disease of [place] coronary artery with other forms of angina pectoris 09/20/2025 9:45 AM EST Office Visit Cardiology [address] [place] [address] Nj Wei MD [address] [place] [address] Dx. Atherosclerotic heart disease of [place] coronary artery with other forms of angina pectoris documented as of this encounter Goals Goal Patient Goal Type Associated Problems Recent Progress Patient-Stated? Author Blood Pressure < 130/80 Blood Pressure 134/63( 025 3:00 PM EDT) No Lidia Lo RN documented as of this encounter Visit Diagnoses Not on filedocumented in this encounter Care Teams Track Man Relationship Specialty Start Date End Date Samm Serrano MD PCP - General Family Medicine 05/30/12 Tom Gonzalez [address] [place] [address] Primary Staff Physician Cardiology 12/02/18 Andreas Pierre MD [address] [place] [id number] Primary Staff Physician Cardiology 04/26/23 Virgil Carrillo MD [address] [place] [address] Primary Staff Physician Cardiology 10/29/23 Jethro Mendoza MD [address] [place] [address] Primary Staff Physician Cardiology 12/26/23 Isaías Kinney MD [address] [place] [address] Primary Staff Physician Cardiology 01/10/24 documented as of this encounter
--- OUTSIDE RECORDS SUMMARY | 2025-04-22 13:47 | XMS_ITS | Encounter Summary ---
Author Organization [facility] [employer] s tem Address [id number] [address] [place] [address] Care Team Providers Care Counter Person Name Role Phone Samm Serrano MD Primary Care Provider [phone] Encounter Details Date Type Department Care Team (Late st Contact Info) Description 01/25/2025 Lab Requisition [facility] - Lab [address] [place] [phone] Samm Serrano MD [address] [place] [address] 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 disease, or unspecified chronic kidney disease (CMS-HCC); Chronic systolic (congestive) heart failure ([facility]) Social History Tobacco Use Types Packs/Day Years [...] week 08/17/2021 How often do you attend [facility] or protestant services? Never 08/17/2021 Do you belong to any clubs o r organizations such as lutheran groups, unions, fraternal or athletic groups, or [...] Answer Date Recorded Total Score 0 08/17/2021 [facility] - Occupational [...] Recorded Do you need help finding a [facility] and/or a training program? [...] - 11 x10E9/L 01/25/2025 12:48 PM EDT [facility] RBC Count 3.62(L) 4.1 - 5.7 X10E12/L 01/25/2025 12:48 PM EDT [facility] Hemoglobin 11.2(L) 13 - 17 g/dL 01/25/2025 12:48 PM EDT [facility] Hematocrit 33.7(L) 39 - 50 % 01/25/2025 12:48 PM EDT [facility] MCV 93 80 - 100 fL 01/25/2025 12:48 PM EDT [facility] MCH 31.0 27 - 34 pg 01/25/2025 12:48 PM EDT [facility] MCHC 33.2 32 - 36 g/dL 01/25/2025 12:48 PM EDT [facility] RDW 17.5(H) 11.5 - 15 % 01/25/2025 12:48 PM EDT [facility] Platelet Count 161 150 - 450 X10E9/L 01/25/2025 12:48 PM EDT [facility] MPV 7.9 7 - 12 fL 01/25/2025 12:48 PM EDT [facility] Neutrophils % 65.9 % 01/25/2025 12:48 PM EDT [facility] Lymphocytes % 15.2 % 01/25/2025 12:48 PM EDT [facility] Monocytes % 12.1 % 01/25/2025 12:48 PM EDT [facility] Eosinophils % 6.3 % 01/25/2025 12:48 PM EDT [facility] Basophils % 0.5 % 01/25/2025 12:48 PM EDT [facility] Neutrophils Absolute (A) 3.3 1.5 - 6.6 10*3/uL 01/25/2025 12:48 PM EDT [facility] Lymphocytes Absolute 0.8(L) 1.0 - 3.5 10*3/uL 01/25/2025 12:48 PM EDT [facility] Monocytes Absolute 0.6 0.0 - 0.9 10*3/uL 01/25/2025 12:48 PM EDT [facility] Eosinophils Absolute 0.3 0.0 - 0.4 10*3/uL 01/25/2025 12:48 PM EDT [facility] Basophils Absolute 0.0 0.0 - 0.2 10*3/uL 01/25/2025 12:48 PM EDT [facility] Differential Type AUTOMATED DIFFERENTIAL 01/25/2025 12:48 PM EDT [facility] Blood Venous blood / Unknown 01/25/2025 11:40 AM EDT 01/25/2025 12:16 PM EDT us Samm Serrano MD LAB BLOOD ORDERABLES Final Resu lt [facility] [address] [place] [address], * (ABNORMAL) Comprehensive metabolic panel (01/25/2025 11:40 AM EDT) SODIUM 135 134 - 146 mmol/L 01/25/2025 12:48 PM EDT [facility] POTASSIUM 4.0 3.5 - 5.0 mmol/L 01/25/2025 12:48 PM EDT [facility] CHLORIDE 104 98 - 109 mmol/L 01/25/2025 12:48 PM EDT [facility] CARBON DIOXIDE 24 22 - 32 mmol/L 01/25/2025 12:48 PM EDT [facility] ANION GAP 7 5 - 15 mmol/L 01/25/2025 12:48 PM EDT [facility] BLOOD UREA NITROGEN 47(H) 5 - 27 mg/dL 01/25/2025 12:48 PM EDT [facility] CREATININE 2.01(H) 0.70 - 1.20 mg/dL 01/25/2025 12:48 PM EDT [facility] Comment:METHOD TRACEABLE TO IDMS STANDARD GLUCOSE 97 65 - 99 mg/dL 01/25/2025 12:48 PM EDT [facility] CALCIUM 8.4(L) 8.5 - 10.5 mg/dL 01/25/2025 12:48 PM EDT [facility] TOTAL PROTEIN 6.9 6.0 - 8.0 g/dL 01/25/2025 12:48 PM EDT [facility] ALBUMIN 3.3 3.2 - 5.3 g/dL 01/25/2025 12:48 PM EDT [facility] ALKALINE PHOSPHATASE 122 39 - 130 U/L 01/25/2025 12:48 PM EDT [facility] AST 22 <=41 U/L 01/25/2025 12:48 PM EDT [facility] ALT 11 <=40 U/L 01/25/2025 12:48 PM EDT [facility] BILIRUBIN,TOTAL 0.9 0.3 - 1.2 mg/dL 01/25/2025 12:48 PM EDT [facility] EGFR Non-Race Dependent 33(L) >=60 ml/min/1.7 3sq.m 01/25/2025 12:48 PM EDT [facility] Comment: eGFR not reported due to non-numeric value for Creatinine. Reported eGFR is based on the CKD-EPI 2020 equation that does not use a race coefficient. Blood Venous blood / Unknown 01/25/2025 11:40 AM EDT 01/25/2025 12:16 PM EDT us Samm Serrano MD LAB BLOOD ORDERABLES Final Resu lt [facility] [address] [place] [address] documented in this encounter Visit Diagnoses Diagnosis [...] documented as of this encounter Care Teams Counter Person Relationship Specialty Start Date End Date Samm Serrano MD PCP - General Family Medicine 02/26/24 documented as of this encounter
--- OUTSIDE RECORDS SUMMARY | 2025-04-22 13:47 | XMS_ITS | Encounter Summary ---
Author Organization [facility] Address [address] [place] [address] Care Team Providers Care Shovel Engineer Name Role Phone Samm Serrano MD Primary Care Provider [phone] Encounter Details Date Type Department Care Team (Late st Contact Info) Description 04/16/2025 Orders Only [facility] at [facility] [address] [place] [address] Nidia Pa MA Social History Tobacco Use Types Packs/Day Years Used Date Smoking Tobacco: Former Cigarettes Smokeless Tobacco: Never Alcohol Use Standard Drinks/Week Comments Not Currently 0 (1 standard drink = 0.6 oz pur e alcohol) [facility] Utilities Answer Date Recorded In the past 12 months has [facility] electric, gas, oil, or water company [...] living in a custodial (including now)? No 03/05/2025 Hunger Vital Sign [...] 2:30 PM EDT Office Visit [facility] Heart at [facility] [address] [place] [address] Ozzie Crain MD [address] [facility] [address] [facility] [place] [phone] documented as of this encounter Visit Diagnoses Not on filedocumented in this encounter Care Teams Shovel Engineer Relationship Specialty Start Date End Date Samm Serrano MD [address] [facility] [address] [address] PCP - General 05/16/22 documented as of this encounter
--- OUTSIDE RECORDS SUMMARY | 2025-04-22 13:48 | XMS_ITS | Encounter Summary ---
Author Organization [facility] [email or web address] s tem Address [id number] [address] [place] [address] Care Team Providers Care Acute Care Surgeon Name Role Phone Samm Serrano MD Primary Care Provider [phone] Encounter Details Date Type Department Care Team (Late st Contact Info) Description 02/01/2025 Lab Requisition [facility] - Lab [address] [place] [id number] Samm Serrano MD [address] [place] [address] 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 disease, or unspecified chronic kidney disease (CMS-HCC); Chronic systolic (congestive) heart failure ([facility]-HCC) Social History Tobacco Use Types Packs/Day Years [...] week 08/17/2021 How often do you attend [facility] or anabaptist services? Never 08/17/2021 Do you belong to any clubs o r organizations such as mandaen groups, unions, fraternal or athletic groups, or [...] Recorded Do you need help finding a [facility] and/or a training program? [...] - 11 x10E9/L 02/01/2025 2:[address] [facility] RBC Count 3.84(L) 4.1 - 5.7 X10E12/L 02/01/2025 2:[address] [facility] Hemoglobin 12.1(L) 13 - 17 g/dL 02/01/2025 2:[address] [facility] Hematocrit 35.9(L) 39 - 50 % 02/01/2025 2:[address] [facility] MCV 94 80 - 100 fL 02/01/2025 2:[address] [facility] MCH 31.4 27 - 34 pg 02/01/2025 2:[address] [facility] MCHC 33.6 32 - 36 g/dL 02/01/2025 2:[address] [facility] RDW 17.6(H) 11.5 - 15 % 02/01/2025 2:[address] [facility] Platelet Count 156 150 - 450 X10E9/L 02/01/2025 2:[address] [facility] MPV 8.3 7 - 12 fL 02/01/2025 2:[address] [facility] Neutrophils % 70.6 % 02/01/2025 2:[address] [facility] Lymphocytes % 12.2 % 02/01/2025 2:[address] [facility] Monocytes % 12.5 % 02/01/2025 2:[address] [facility] Eosinophils % 3.5 % 02/01/2025 2:[address] [facility] Basophils % 1.2 % 02/01/2025 2:[address] [facility] Neutrophils Absolute (A) 3.3 1.5 - 6.6 10*3/uL 02/01/2025 2:[address] [facility] Lymphocytes Absolute 0.6(L) 1.0 - 3.5 10*3/uL 02/01/2025 2:[address] [facility] Monocytes Absolute 0.6 0.0 - 0.9 10*3/uL 02/01/2025 2:[address] [facility] Eosinophils Absolute 0.2 0.0 - 0.4 10*3/uL 02/01/2025 2:[address] [facility] Basophils Absolute 0.1 0.0 - 0.2 10*3/uL 02/01/2025 2:[address] [facility] Differential Type AUTOMATED DIFFERENTIAL 02/01/2025 2:[address] [facility] Blood Venous blood / Unknown 02/01/2025 1:38 PM EDT 02/01/2025 2:16 PM EDT us Samm Serrano MD LAB BLOOD ORDERABLES Final Resu lt [facility] [address] [place] [address], * (ABNORMAL) Comprehensive metabolic panel (02/01/2025 1:38 PM EDT) SODIUM 134 134 - 146 mmol/L 02/01/2025 2:[address] [facility] POTASSIUM 4.1 3.5 - 5.0 mmol/L 02/01/2025 2:[address] [facility] CHLORIDE 103 98 - 109 mmol/L 02/01/2025 2:[address] [facility] CARBON DIOXIDE 21(L) 22 - 32 mmol/L 02/01/2025 2:[address] [facility] ANION GAP 10 5 - 15 mmol/L 02/01/2025 2:[address] [facility] BLOOD UREA NITROGEN 50(H) 5 - 27 mg/dL 02/01/2025 2:[address] [facility] CREATININE 2.47(H) 0.70 - 1.20 mg/dL 02/01/2025 2:[address] [facility] Comment:METHOD TRACEABLE TO IDMS STANDARD GLUCOSE 100(H) 65 - 99 mg/dL 02/01/2025 2:[address] [facility] CALCIUM 8.1(L) 8.5 - 10.5 mg/dL 02/01/2025 2:[address] [facility] TOTAL PROTEIN 7.0 6.0 - 8.0 g/dL 02/01/2025 2:[address] [facility] ALBUMIN 3.3 3.2 - 5.3 g/dL 02/01/2025 2:[address] [facility] ALKALINE PHOSPHATASE 103 39 - 130 U/L 02/01/2025 2:[address] [facility] AST 19 <=41 U/L 02/01/2025 2:[address] [facility] ALT 11 <=40 U/L 02/01/2025 2:[address] [facility] BILIRUBIN,TOTAL 1.3(H) 0.3 - 1.2 mg/dL 02/01/2025 2:[address] [facility] EGFR Non-Race Dependent 25(L) >=60 ml/min/1.7 3sq.m 02/01/2025 2:[address] [facility] Comment: eGFR not reported due to non-numeric value for Creatinine. Reported eGFR is based on the CKD-EPI 2020 equation that does not use a race coefficient. Blood Venous blood / Unknown 02/01/2025 1:38 PM EDT 02/01/2025 2:16 PM EDT us aSmm Serrano MD LAB BLOOD ORDERABLES Final Resu lt [facility] [address] [place] [address] documented in this encounter Visit Diagnoses Diagnosis [...] documented as of this encounter Care Teams Acute Care Surgeon Relationship Specialty Start Date End Date Samm Serrano MD PCP - General Family Medicine 02/26/24 documented as of this encounter
--- OUTSIDE RECORDS SUMMARY | 2025-04-22 13:48 | XMS_ITS | Clinical Summary ---
Author Organization [employer] tem Address [id number] [address] [place] [address] Care Team Providers Care Proof Coin Collector Name Role Phone Samm Serrano MD Primary Care Provider [phone] Allergies Active Allergy Reactions Criticality Noted Date [...] Take 50 mg by mouth daily. Active [id number] [id number]-ctluak 100 mg-150 mg- 50 mg-150 mg capsule [...] total) by mouth nightly. 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 Both and patient are where the most contact machine hose cutter prior to taking the medication. Viagra 1/2 [...] not to proceed. ==== 07/17/2019 ==== [facility] [place] Grade: 3+ 4 equal 7 # of [...] sexual function is: cannot sustain erection Comorbidities: cardiac---VT, Has AICD ==== 07/17/2019 ==== patient follow-up [...] Referral to be made -per patient choice [facility]. Assessment & Plan (06/28/2021 1:59 [...] Encounters Date Type Department Care Team Description 04/20/2025 Lab Requisition [facility] - Lab [address] [facility] [place] [address] Samm Serrano MD Hyperkalemia; Non-ST elevation (NSTEMI) myocardial infarction (CMS-HCC); Heart failure, unspecified (CMS-HCC) 04/16/2025 Lab Requisition [facility] - Lab [address] [facility] [place] [address] Samm Serrano MD Hematuria, unspecified 04/13/2025 Lab Requisition [facility] [address] [place] [address] Samm Serrano MD Hyperkalemia; Non-ST elevation (NSTEMI) myocardial infarction (CMS-HCC); Heart failure, unspecified (CMS-HCC) 04/06/2025 Lab Requisition [facility] - Lab [address] [place] [address] Samm Serrano MD Hyperkalemia; Non-ST elevation (NSTEMI) myocardial infarction (CMS-HCC); Heart failure, unspecified (CMS-HCC) 03/29/2025 Lab Requisition [facility] - Lab [address] [place] [address] Samm Serrano MD Hyperkalemia; Non-ST elevation (NSTEMI) myocardial infarction (CMS-HCC); Heart failure, unspecified (CMS-HCC) 03/24/2025 Lab Requisition [facility] - Lab [address] [place] [address] Samm Serrano MD Chronic systolic (congestive) heart failure (CMS-HCC); Chronic kidney disease, stage 3 unspecified (CMS-HCC) 02/22/2025 Lab Requisition [facility] Lab [address] [place] [address] Samm Serrano MD 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 disease, or unspecified chronic kidney disease ([facility]-HCC); Chronic systolic (congestive) heart failure ([facility]-HCC) 02/09/2025 Lab Requisition [facility] - Lab [address] [place] [address] Samm Serrano MD Acute kidney failure, unspecified; 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 disease, or unspecified chronic kidney disease (CMS-HCC); Chronic systolic (congestive) heart failure ([facility]-HCC) 02/01/2025 Lab Requisition [facility] [address] [place] [address] Samm Serrano MD 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 disease, or unspecified chronic kidney disease ([facility]-HCC); Chronic systolic (congestive) heart failure ([facility]-HCC) 01/25/2025 Lab Requisition [facility] - Lab [address] [place] [address] Samm Serrano MD 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 disease, or unspecified chronic kidney disease ([facility]-HCC); Chronic systolic (congestive) heart failure ([facility]-HCC) from Last 3 Months Immunizations Immunization Administration Dates Next Due [facility] 06/13/2020 Family History Medical History [...] often do you attend chur ch or faith services? Never 08/17/2021 Do you belong to any clubs o r organizations such as methodist groups, unions, fraternal or athletic groups, or [...] Answer Date Recorded Total Score 0 08/17/2021 [facility] Occupat ional Health - Occupational Stress [...] Recorded Do you need help finding a [facility] and/or a training [...] Procedure Name Priority Date/Time Associated Diagnosis Comments T3, FREE Routine 04/20/2025 3:53 PM EDT Hyperkalemia Non-ST elevation (NSTEMI) myocardial infarction (CMS-HCC) Heart failure, unspecified (CMS-HCC) THYROID PROFILE INCLUDES TSH FT4 Routine 04/20/2025 [...] myocardial infarction (CMS-HCC) Heart failure, unspecified (CMS-HCC) MICROSCOPIC URINE Routine 04/16/2025 1:1 5 PM EDT Hematuria, unspecified T3, FREE Routine 04/13/2025 1:27 PM EDT Hyperkalemia Non-ST elevation (NSTEMI) myocardial infarction (CMS-HCC) Heart failure, unspecified (CMS-HCC) THYROID PROFILE INCLUDES TSH FT4 Routine 04/13/2025 [...] (CMS-HCC) Chronic systolic (congestive) heart failure (CMS-HCC) from Last 3 Months Results * (ABNORMAL) Thyroid profile includes TSH FT4 (04/20/2025 3:53 PM EDT) Only the most recent of3 resultswithin the time period is included. FREE T4 1.29 0.61 - 1.60 ng/dL 04/20/2025 6:16 PM EDT [facility] TSH 0.34(L) 0.49 - 4.67 uIU/mL 04/20/2025 6:16 PM EDT [facility] Blood Venous blood / Unknown 04/20/2025 3:53 PM EDT 04/20/2025 4:25 PM EDT us Samm Serrano MD LAB BLOOD ORDERABLES Final Resu lt [facility] [address] [place] [address], * (ABNORMAL) CBC auto differential (04/20/2025 3:53 PM EDT) Only the most recent of9 resultswithin the time period is included. WBC 6.0 4 - 11 x10E9/L 04/20/2025 4:34 PM EDT [facility] RBC Count 3.87(L) 4.1 - 5.7 X10E12/L 04/20/2025 4:34 PM EDT [facility] Hemoglobin 11.6(L) 13 - 17 g/dL 04/20/2025 4:34 PM EDT [facility] Hematocrit 34.8(L) 39 - 50 % 04/20/2025 4:34 PM EDT [facility] MCV 90 80 - 100 fL 04/20/2025 4:34 PM EDT [facility] MCH 30.0 27 - 34 pg 04/20/2025 4:34 PM EDT [facility] MCHC 33.4 32 - 36 g/dL 04/20/2025 4:34 PM EDT [facility] RDW 16.9(H) 11.5 - 15 % 04/20/2025 4:34 PM EDT [facility] Platelet Count 188 150 - 450 X10E9/L 04/20/2025 4:34 PM EDT [facility] MPV 8.2 7 - 12 fL 04/20/2025 4:34 PM EDT [facility] Neutrophils % 85.8 % 04/20/2025 4:34 PM EDT [facility] Lymphocytes % 6.3 % 04/20/2025 4:34 PM EDT [facility] Monocytes % 7.9 % 04/20/2025 4:34 PM EDT [facility] Eosinophils % 0.0 % 04/20/2025 4:34 PM EDT [facility] Basophils % 0.0 % 04/20/2025 4:34 PM EDT [facility] Neutrophils Absolute (A) 5.1 1.5 - 6.6 10*3/uL 04/20/2025 4:34 PM EDT [facility] Lymphocytes Absolute 0.4(L) 1.0 - 3.5 10*3/uL 04/20/2025 4:34 PM EDT [facility] Monocytes Absolute 0.5 0.0 - 0.9 10*3/uL 04/20/2025 4:34 PM EDT [facility] Eosinophils Absolute 0.0 0.0 - 0.4 10*3/uL 04/20/2025 4:34 PM EDT [facility] Basophils Absolute 0.0 0.0 - 0.2 10*3/uL 04/20/2025 4:34 PM EDT [facility] Differential Type AUTOMATED DIFFERENTIAL 04/20/2025 4:34 PM EDT [facility] Blood Venous blood / Unknown 04/20/2025 3:53 PM EDT 04/20/2025 4:25 PM EDT us Samm Serrano MD LAB BLOOD ORDERABLES Final Resu lt [facility] [address] [place] [address], [place] * (ABNORMAL) Iron and TIBC (04/20/2025 3:53 PM EDT) Only the most recent of4 resultswithin the time period is included. IRON 41(L) 50 - 212 ug/dL 04/20/2025 10:37 PM EDT [facility] TRANSFERRIN 223 168 - 336 mg/dL 04/20/2025 10:37 PM EDT [facility] IRON BINDING 312 250 - 425 ug/dL 04/20/2025 10:37 PM EDT [facility] IRON SATURATION 13(L) 20 - 50 % SATURATION 04/20/2025 10:37 PM EDT [facility] Blood Venous blood / Unknown 04/20/2025 3:53 PM EDT 04/20/2025 4:25 PM EDT us Samm Serrano MD LAB BLOOD ORDERABLES Final Resu lt [facility] [address] [place] [address], [place] [phone] * (ABNORMAL) T3, free (04/20/2025 3:53 PM EDT) Only the most recent of4 resultswithin the time period is included. FREE T3 2.28(L) 2.50 - 3.90 pg/mL 04/20/2025 10:45 PM EDT [facility] Blood Venous blood / Unknown 04/20/2025 3:53 PM EDT 04/20/2025 4:25 PM EDT us Samm Serrano MD LAB BLOOD ORDERABLES Final Resu lt [facility] [address] [place] [address], [place] [phone] * (ABNORMAL) B-type natriuretic peptide (04/20/2025 3:53 PM EDT) Only the most recent of4 resultswithin the time period is included. BNP >5,000(H) <=100 pg/mL 04/20/2025 6:18 PM EDT [facility] Blood Venous blood / Unknown 04/20/2025 3:53 PM EDT 04/20/2025 4:25 PM EDT us Samm Serrano MD LAB BLOOD ORDERABLES Final Resu lt Performing Organization Address [facility] Co de Phone Number [facility] [address] [place] [address], [place] * (ABNORMAL) Magnesium (04/20/2025 3:53 PM EDT) Only the most recent of4 resultswithin the time period is included. MAGNESIUM 2.8(H) 1.8 - 2.6 mg/dL 04/20/2025 4:53 PM EDT [facility] Blood Venous blood / Unknown 04/20/2025 3:53 PM EDT 04/20/2025 4:25 PM EDT us Samm Serrano MD LAB BLOOD ORDERABLES Final Resu lt [facility] [address] [place] [address], [place] * (ABNORMAL) Basic Metabolic Panel (04/20/2025 3:53 PM EDT) Only the most recent of6 resultswithin the time period is included. SODIUM 132(L) 134 - 146 mmol/L 04/20/2025 4:53 PM EDT [facility] POTASSIUM 4.7 3.5 - 5.0 mmol/L 04/20/2025 4:53 PM EDT [facility] CHLORIDE 102 98 - 109 mmol/L 04/20/2025 4:53 PM EDT [facility] CARBON DIOXIDE 21(L) 22 - 32 mmol/L 04/20/2025 4:53 PM EDT [facility] ANION GAP 9 5 - 15 mmol/L 04/20/2025 4:53 PM EDT [facility] BLOOD UREA NITROGEN 95(H) 5 - 27 mg/dL 04/20/2025 4:53 PM EDT [facility] CREATININE 2.49(H) 0.70 - 1.20 mg/dL 04/20/2025 4:53 PM EDT [facility] Comment:METHOD TRACEABLE TO IDMS STANDARD GLUCOSE 151(H) 65 - 99 mg/dL 04/20/2025 4:53 PM EDT [facility] CALCIUM 8.5 8.5 - 10.5 mg/dL 04/20/2025 4:53 PM EDT [facility] EGFR Non-Race Dependent 25(L) >=60 ml/min/1.7 3sq.m 04/20/2025 4:53 PM EDT [facility] Comment: eGFR not reported due to non-numeric value for Creatinine. Reported eGFR is based on the CKD-EPI 2020 equation that does not use a race coefficient. Blood Venous blood / Unknown 04/20/2025 3:53 PM EDT 04/20/2025 4:25 PM EDT us Samm Serrano MD LAB BLOOD ORDERABLES Final Resu lt Performing Organization Address [facility] Co de Phone Number [address] [place] [address], [place] * (ABNORMAL) Microscopic, urine (04/16/2025 1:15 PM EDT) Pathologist [facility] R.B.CELLS >100(H) 0 - 5 04/16/2025 2:51 PM EDT [facility] W.B.CELLS 04/16/2025 2:51 PM EDT [facility] Comment:PRESENT Urine Urine specimen collection, clean catch / Unknown 04/16/2025 1:15 PM EDT 04/16/2025 2:35 PM EDT us Samm Serrano MD URINE ORDERABLES Final Result Performing Organization Address [facility] Co de Phone Number [address] [place] [address], [place] * TSH (04/06/2025 3:00 PM EDT) Pathologist [facility] TSH 1.10 0.49 - 4.67 uIU/mL 04/06/2025 4:25 PM EDT [facility] Blood Venous blood / Unknown 04/06/2025 3:00 PM EDT 04/06/2025 3:31 PM EDT us Samm Serrano MD LAB BLOOD ORDERABLES Final Resu lt Performing Organization Address [facility] Co de Phone Number [address] [place] [address], [place] * T4, free (04/06/2025 3:00 PM EDT) FREE T4 1.19 0.61 - 1.60 ng/dL 04/06/2025 4:27 PM EDT [facility] Blood Venous blood / Unknown 04/06/2025 3:00 PM EDT 04/06/2025 3:31 PM EDT us Samm Serrano MD LAB BLOOD ORDERABLES Final Resu lt [facility] [address] [place] [address] [place] [address], [place] * Prostatic specific antigen screen (03/24/2025 11:38 AM EDT) PROSTATIC SPEC ANT <0.01 0.00 - 4.00 ng/mL 03/24/2025 7:33 PM EDT [facility] Comment: The method used for this test is C[employer] DXI chemiluminescent immunoassay. Values obtained by different assay methods cannot be used interchangeably. Blood Venous blood / Unknown 03/24/2025 11:38 AM EDT 03/24/2025 12:16 PM EDT us Samm Serrano MD LAB BLOOD ORDERABLES Final Resu lt Performing Organization Address City/[facility]/ZIP Co de Phone Number [facility] [address] [place] [address], [place] [phone] * ALT (03/24/2025 11:38 AM EDT) ALT 39 <=40 U/L 03/24/2025 12:34 PM EDT [facility] Blood Venous blood / Unknown 03/24/2025 11:38 AM EDT 03/24/2025 12:16 PM EDT us Samm Serrano MD LAB BLOOD ORDERABLES Final Resu lt Performing Organization Address City/[facility]/ZIP Co de Phone Number [facility] [address] [place] [address] [place] [address], [place] * (ABNORMAL) AST (03/24/2025 11:38 AM EDT) AST 49(H) <=41 U/L 03/24/2025 12:34 PM EDT [facility] Blood Venous blood / Unknown 03/24/2025 11:38 AM EDT 03/24/2025 12:16 PM EDT us Samm Serrano MD LAB BLOOD ORDERABLES Final Resu lt Performing Organization Address City/[facility]/ZIP Co de Phone Number [address] [place] [address], [place] * (ABNORMAL) Liver panel (03/24/2025 11:38 AM EDT) TOTAL PROTEIN 6.4 6.0 - 8.0 g/dL 03/24/2025 12:34 PM EDT [facility] ALBUMIN 3.2 3.2 - 5.3 g/dL 03/24/2025 12:34 PM EDT [facility] BILIRUBIN,TOTAL 0.8 0.3 - 1.2 mg/dL 03/24/2025 12:34 PM EDT [facility] ALKALINE PHOSPHATASE 138(H) 39 - 130 U/L 03/24/2025 12:34 PM EDT [facility] AST 49(H) <=41 U/L 03/24/2025 12:34 PM EDT [facility] ALT 39 <=40 U/L 03/24/2025 12:34 PM EDT [facility] BILIRUBIN,DIRECT 0.4 <=0.4 mg/dL 03/24/2025 12:34 PM EDT [facility] Blood Venous blood / Unknown 03/24/2025 11:38 AM EDT 03/24/2025 12:16 PM EDT us Samm Serrano MD LAB BLOOD ORDERABLES Final Resu lt Performing Organization Address City/[facility]/ZIP Co de Phone Number [address] [place] [address], [place] * Lipid profile (03/24/2025 11:38 AM EDT) CHOLESTEROL 154 150 - 200 mg/dL 03/24/2025 7:28 PM EDT [facility] TRIGLYCERIDE 55 27 - 150 mg/dL 03/24/2025 7:28 PM EDT [facility] HDL CHOLESTEROL 49 >39 mg/dL 7:28 PM EDT [facility] Comment: HDL <40 mg/dL - High Risk HDL > or = 40mg/dL- Desirable HDL >60 mg/dL - Negative Risk LDL (CALC) 94 <130 mg/dL 03/24/2025 7:28 PM EDT [facility] Comment: LDL <100 mg/dL - Desirable LDL >160 mg/dL - High Risk CHOLESTEROL:HDL 3.1 1.0 - 5.0 7:28 PM EDT [facility] VERY LOW LIPOPROTEIN 11 0 - 30 mg/dL 03/24/2025 7:28 PM EDT [facility] Blood Venous blood / Unknown 03/24/2025 11:38 AM EDT 03/24/2025 12:16 PM EDT us Samm Serrano MD LAB BLOOD ORDERABLES Final Resu lt [facility] [address] [place] [address], [place] [phone] * (ABNORMAL) Comprehensive metabolic panel (02/09/2025 3:27 PM EDT) Only the most recent of3 resultswithin the time period is included. SODIUM 133(L) 134 - 146 mmol/L 02/09/2025 4:45 PM EDT [facility] POTASSIUM 3.8 3.5 - 5.0 mmol/L 02/09/2025 4:45 PM EDT [facility] CHLORIDE 102 98 - 109 mmol/L 02/09/2025 4:45 PM EDT [facility] CARBON DIOXIDE 27 22 - 32 mmol/L 02/09/2025 4:45 PM EDT [facility] ANION GAP 4(L) 5 - 15 mmol/L 02/09/2025 4:45 PM EDT [facility] BLOOD UREA NITROGEN 49(H) 5 - 27 mg/dL 02/09/2025 4:45 PM EDT [facility] CREATININE 2.18(H) 0.70 - 1.20 mg/dL 02/09/2025 4:45 PM EDT [facility] Comment:METHOD TRACEABLE TO IDMT STANDARD GLUCOSE 88 65 - 99 mg/dL 02/09/2025 4:45 PM EDT [facility] CALCIUM 8.6 8.5 - 10.5 mg/dL 02/09/2025 4:45 PM EDT [facility] TOTAL PROTEIN 6.8 6.0 - 8.0 g/dL 02/09/2025 4:45 PM EDT [facility] ALBUMIN 3.3 3.2 - 5.3 g/dL 02/09/2025 4:45 PM EDT [facility] ALKALINE PHOSPHATASE 117 39 - 130 U/L 02/09/2025 4:45 PM EDT [facility] AST 20 <=41 U/L 02/09/2025 4:45 PM EDT [facility] ALT 11 <=40 U/L 02/09/2025 4:45 PM EDT [facility] BILIRUBIN,TOTAL 1.1 0.3 - 1.2 mg/dL 02/09/2025 4:45 PM EDT [facility] EGFR Non-Race Dependent 29(L) >=60 ml/min/1.7 3sq.m 02/09/2025 4:45 PM EDT [facility] Comment: eGFR not reported due to non-numeric value for Creatinine. Reported eGFR is based on the CKD-EPI 2020 equation that does not use a race coefficient. Blood Venous blood / Unknown 02/09/2025 3:27 PM EDT 02/09/2025 4:19 PM EDT us Samm Serrano MD LAB BLOOD ORDERABLES Final Resu lt [facility] [address] [place] [address], [place] from Last 3 Months Insurance [employer] [place] Advance Directives * Full Code (Latest Code Status on File) Date Activated Date Inactivated Comments 08/18/2021 11:48 AM 08/19/2021 7:30 PM Care Teams Proof Coin Collector Relationship Specialty Start Date End Date Samm Serrano MD PCP - General Family Medicine 02/26/24
--- OUTSIDE RECORDS SUMMARY | 2025-04-22 13:48 | XMS_ITS ---
Author Organization [employer] tem Address [id number] [address] [place] [address] Care Team Providers Care Jewelry Facer Name Role Phone Samm Serrano MD Primary Care Provider [phone] Active Problems Problem Noted Date Diagnosed Date [...] get clearance to take Viagra through his presales senior specialist. Both and patient are where the most contact presales senior specialist prior to taking the medication. Viagra 1/2 [...] clinical risk group is: Favorable intermediate risk [facility] Nomogram probability for Lymph Node Metastasis: 2% Location: bilateral Severity: moderate Quality: NCCN guidelines unfavorable intermediate risk Based on social security life tables patient is predicted life expectancy is: 10 yrs Baseline urinary function is: good Baseline sexual function is: cannot sustain erection Comorbidities: cardiac---SC, Has AICD ==== 07/17/2019 ==== patient follow-up [...] Referral to be made -per patient choice [facility]. Assessment & Plan (06/28/2021 1:59 [...]
--- OUTSIDE RECORDS SUMMARY | 2025-04-22 13:48 | XMS_ITS | Patient Health Record ---
Author Organization Formerly [facility], [facility] vices Address [address] [place], [place] [address] Care Team Providers Care Soil Fertility Extension Specialist Name Role Phone Kayli Stokes Unavailable [phone] Allergies Allergen (clinical drug ingredient) Drug/Non Drug Allergy documented on EMR Reaction Allergy Type Onset Date Status Latex Latex Unknown Allergy Active Reason For Referral No Information Medications Medication SIG (Take, Route, Frequency, Duration) Notes Start Date End Date Status Amiodarone HCl 200 MG Oral; Duration: 30 Days Active Torsemide 20 MG Oral; Duration: 30 Days Active Atorvastatin Calcium 40 MG Oral; Duratio n: 90 Days Active Metoprolol Succinate ER 25 MG Oral; Duration: 90 Days Active Escitalopram Oxalate 5 MG Oral; Duration : 30 Days Not-Taking Spironolactone 25 MG TAKE 1/2 TABLET BY MOUTH EVERY MORNING Oral; Duration: 30 Days Not-Taking Furosemide 40 MG TAKE ONE TABLET BY MOUTH IN THE MORNING AND AT BEDTIME Oral; Duration: 30 Days Not-Taking CITY [employer]ER Thyroid Active Furosemide 40 MG Oral; Duration: 90 Days Not-Taking Eliquis 2.5 MG Oral; Duration: 7 Days Active Spironolactone 25 MG Oral; Duration: 90 Days Not-Taking Social History Sex Assigned At : Social History Observation Description Sex Assigned At Male Tobacco Control (Standard) Question Answer Notes Additional Findings: Tobacco non-user Current no nsmoker Vital Signs Heart Rate 52 /min 09/02/2024 Height-cm 182.88 cm 09/02/2024 Blood pressure diastolic 46 mm Hg 09/02/2024 Weight-kg 75.3 kg 09/02/2024 Height 6'0 in 09/02/2024 Blood pressure systolic 93 mm Hg 09/02/2024 Weight 166 lbs 09/02/2024 BMI 22.51 kg/m2 09/02/2024 Encounters Encounter Location Date Provider Diagnosis Dental Main [address] [place], [place] [id number] 09/02/2024 Kayli Stokes Encounter for scre ening for dental [...] End Date SFS 60 responsible [address] [place] [address] José Miguel Antonio Self - patient is the insured 4 5
--- OUTSIDE RECORDS SUMMARY | 2025-04-22 13:48 | XMS_ITS | Encounter Summary ---
Author Organization [facility] tem Address [id number] [address] [place] [address] Care Team Providers Care Siding Applicator Name Role Phone Samm Serrano MD Primary Care Provider [phone] Encounter Details Date Type Department Care Team (Late st Contact Info) Description 02/09/2025 Lab Requisition [facility] - Lab [address] [place] [phone] Samm Serrano MD [address] [place] [address] Acute kidney failure, unspecified; 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 disease, or unspecified chronic kidney disease (CMS-HCC); Chronic systolic (congestive) heart failure ([facility]-HCC) Social History Tobacco Use Types [...] week 08/17/2021 How often do you attend [facility] or muslim services? Never 08/17/2021 Do you belong to any clubs o r organizations such as confucianism groups, unions, fraternal or athletic groups, or [...] Answer Date Recorded Total Score 0 08/17/2021 [facility] of Occupat ional Health - Occupational Stress [...] Do you need help finding a [facility] career center and/or a training program? [...] - 11 x10E9/L 02/09/2025 4:39 PM EDT [facility] RBC Count 3.74(L) 4.1 - 5.7 X10E12/L 02/09/2025 4:39 PM EDT [facility] Hemoglobin 11.7(L) 13 - 17 g/dL 02/09/2025 4:39 PM EDT [facility] Hematocrit 35.2(L) 39 - 50 % 02/09/2025 4:39 PM EDT [facility] MCV 94 80 - 100 fL 02/09/2025 4:39 PM EDT [facility] MCH 31.3 27 - 34 pg 02/09/2025 4:39 PM EDT [facility] MCHC 33.3 32 - 36 g/dL 02/09/2025 4:39 PM EDT [facility] RDW 17.6(H) 11.5 - 15 % 02/09/2025 4:39 PM EDT [facility] Platelet Count 161 150 - 450 X10E9/L 02/09/2025 4:39 PM EDT [facility] MPV 8.1 7 - 12 fL 02/09/2025 4:39 PM EDT [facility] Neutrophils % 62.7 % 02/09/2025 4:39 PM EDT [facility] Lymphocytes % 16.4 % 02/09/2025 4:39 PM EDT [facility] Monocytes % 14.1 % 02/09/2025 4:39 PM EDT [facility] Eosinophils % 6.3 % 02/09/2025 4:39 PM EDT [facility] Basophils % 0.5 % 02/09/2025 4:39 PM EDT [facility] Neutrophils Absolute (A) 2.6 1.5 - 6.6 10*3/uL 02/09/2025 4:39 PM EDT [facility] Lymphocytes Absolute 0.7(L) 1.0 - 3.5 10*3/uL 02/09/2025 4:39 PM EDT [facility] Monocytes Absolute 0.6 0.0 - 0.9 10*3/uL 02/09/2025 4:39 PM EDT [facility] Eosinophils Absolute 0.3 0.0 - 0.4 10*3/uL 02/09/2025 4:39 PM EDT [facility] Basophils Absolute 0.0 0.0 - 0.2 10*3/uL 02/09/2025 4:39 PM EDT [facility] Differential Type AUTOMATED DIFFERENTIAL 02/09/2025 4:39 PM EDT [facility] Blood Venous blood / Unknown 02/09/2025 3:27 PM EDT 02/09/2025 4:19 PM EDT us Samm Serrano MD LAB BLOOD ORDERABLES Final Resu lt [facility] [address] [place] [address], * (ABNORMAL) Comprehensive metabolic panel (02/09/2025 3:27 PM EDT) SODIUM 133(L) 134 - 146 mmol/L 02/09/2025 4:45 PM EDT [facility] POTASSIUM 3.8 3.5 - 5.0 mmol/L 02/09/2025 4:45 PM EDT [facility] CHLORIDE 102 98 - 109 mmol/L 02/09/2025 4:45 PM EDT [facility] CARBON DIOXIDE 27 22 - 32 mmol/L 02/09/2025 4:45 PM EDT [facility] ANION GAP 4(L) 5 - 15 mmol/L 02/09/2025 4:45 PM EDT [facility] BLOOD UREA NITROGEN 49(H) 5 - 27 mg/dL 02/09/2025 4:45 PM EDT [facility] CREATININE 2.18(H) 0.70 - 1.20 mg/dL 02/09/2025 4:45 PM EDT [facility] Comment:METHOD TRACEABLE TO IDMS STANDARD GLUCOSE 88 65 - 99 mg/dL 02/09/2025 4:45 PM EDT [facility] CALCIUM 8.6 8.5 - 10.5 mg/dL 02/09/2025 4:45 PM EDT [facility] TOTAL PROTEIN 6.8 6.0 - 8.0 g/dL 02/09/2025 4:45 PM EDT [facility] ALBUMIN 3.3 3.2 - 5.3 g/dL 02/09/2025 4:45 PM EDT [facility] ALKALINE PHOSPHATASE 117 39 - 130 U/L 02/09/2025 4:45 PM EDT [facility] AST 20 <=41 U/L 02/09/2025 4:45 PM EDT [facility] ALT 11 <=40 U/L 02/09/2025 4:45 PM EDT [facility] BILIRUBIN,TOTAL 1.1 0.3 - 1.2 mg/dL 02/09/2025 4:45 PM EDT [facility] EGFR Non-Race Dependent 29(L) >=60 ml/min/1.7 3sq.m 02/09/2025 4:45 PM EDT [facility] Comment: eGFR not reported due to non-numeric value for Creatinine. Reported eGFR is based on the CKD-EPI 2020 equation that does not use a race coefficient. Blood Venous blood / Unknown 02/09/2025 3:27 PM EDT 02/09/2025 4:19 PM EDT us Samm Serrano MD LAB BLOOD ORDERABLES Final Resu lt Performing Organization Address City/State/[facility] Co de Phone Number [facility] [address] [place] [address] documented in this encounter Visit Diagnoses Diagnosis [...] documented as of this encounter Care Teams Siding Applicator Relationship Specialty Start Date End Date Samm Serrano MD PCP - General Family Medicine 02/26/24 documented as of this encounter
--- OUTSIDE RECORDS SUMMARY | 2025-04-22 13:48 | XMS_ITS | Encounter Summary ---
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 Never 08/17/2021 Do you belong to any clubs o r organizations such as scientologist groups, unions, fraternal or athletic groups, or [...] Recorded Total Score 0 08/17/2021 [facility] of Occupat ional Health - [...] Recorded Do you need help finding a [facility] and/or a training [...] - 11 x10E9/L 02/22/2025 2:43 PM EDT [facility] RBC Count 3.63(L) 4.1 - 5.7 X10E12/L 02/22/2025 2:43 PM EDT [facility] Hemoglobin 11.3(L) 13 - 17 g/dL 02/22/2025 2:43 PM EDT [facility] Hematocrit 34.6(L) 39 - 50 % 02/22/2025 2:43 PM EDT [facility] MCV 95 80 - 100 fL 02/22/2025 2:43 PM EDT [facility] MCH 31.2 27 - 34 pg 02/22/2025 2:43 PM EDT [facility] MCHC 32.7 32 - 36 g/dL 02/22/2025 2:43 PM EDT [facility] RDW 17.7(H) 11.5 - 15 % 02/22/2025 2:43 PM EDT [facility] Platelet Count 139(L) 150 - 450 X10E9/L 02/22/2025 2:43 PM EDT [facility] MPV 8.4 7 - 12 fL 02/22/2025 2:43 PM EDT [facility] Neutrophils % 69.7 % 02/22/2025 2:43 PM EDT [facility] Lymphocytes % 10.4 % 02/22/2025 2:43 PM EDT [facility] Monocytes % 11.7 % 02/22/2025 2:43 PM EDT [facility] Eosinophils % 7.5 % 02/22/2025 2:43 PM EDT [facility] Basophils % 0.7 % 02/22/2025 2:43 PM EDT [facility] Neutrophils Absolute (A) 2.6 1.5 - 6.6 10*3/uL 02/22/2025 2:43 PM EDT [facility] Lymphocytes Absolute 0.4(L) 1.0 - 3.5 10*3/uL 02/22/2025 2:43 PM ED[address] [facility] Monocytes Absolute 0.4 0.0 - 0.9 10*3/uL 02/22/2025 2:43 PM EDT [facility] Eosinophils Absolute 0.3 0.0 - 0.4 10*3/uL 02/22/2025 2:43 PM EDT [facility] Basophils Absolute 0.0 0.0 - 0.2 10*3/uL 02/22/2025 2:43 PM EDT [facility] Differential Type AUTOMATED DIFFERENTIAL 02/22/2025 2:43 PM EDT [facility] Blood Venous blood / Unknown 02/22/2025 1:50 PM EDT 02/22/2025 2:25 PM EDT us Samm Serrano MD LAB BLOOD ORDERABLES Final Resu lt [facility] [address] [facility] [place] [address], * (ABNORMAL) Basic Metabolic Panel (02/22/2025 1:50 PM EDT) SODIUM 136 134 - 146 mmol/L 02/22/2025 3:14 PM EDT [facility] POTASSIUM 3.2(L) 3.5 - 5.0 mmol/L 02/22/2025 3:14 PM EDT [facility] CHLORIDE 101 98 - 109 mmol/L 02/22/2025 3:14 PM EDT [facility] CARBON DIOXIDE 23 22 - 32 mmol/L 02/22/2025 3:14 PM EDT [facility] ANION GAP 12 5 - 15 mmol/L 02/22/2025 3:14 PM EDT [facility] BLOOD UREA NITROGEN 47(H) 5 - 27 mg/dL 02/22/2025 3:14 PM EDT [facility] CREATININE 2.32(H) 0.70 - 1.20 mg/dL 02/22/2025 3:14 PM ED[address] [facility] Comment:METHOD TRACEABLE TO IDMS STANDARD GLUCOSE 154(H) 65 - 99 mg/dL 02/22/2025 3:14 PM EDT [facility] CALCIUM 8.5 8.5 - 10.5 mg/dL 02/22/2025 3:14 PM ED[address] [facility] EGFR Non-Race Dependent 27(L) >=60 ml/min/1.7 3sq.m 02/22/2025 3:14 PM [address] [facility] Comment: eGFR not reported due to non-numeric value for Creatinine. Reported eGFR is based on the CKD-EPI 2020 equation that does not use a race coefficient. Blood Venous blood / Unknown 02/22/2025 1:50 PM EDT 02/22/2025 2:25 PM EDT us Samm Serrano MD LAB BLOOD ORDERABLES Final Resu lt [facility] [address] documented in this encounter Visit Diagnoses [...] documented as of this encounter Care Teams Ski Lift Mechanic Relationship Specialty Start Date End Date Samm Serrano MD PCP - General Family Medicine 02/26/24 documented as of this encounter
--- OUTSIDE RECORDS SUMMARY | 2025-04-22 13:48 | XMS_ITS | Encounter Summary ---
Author Organization [facility] tem Address [facility]-[id number] [address] [place] [address] Care Team Providers Care Mobile Engineer Name Role Phone Samm Serrano MD Primary Care Provider [phone] Encounter Details Date Type Department Care Team (Late st Contact Info) Description 02/25/2024 Telephone [facility] - Cardiac Rehab [address] [place] [phone] Sheila Finney RN Social History Tobacco Use [...] often do you attend chur ch or methodist services? Never 08/17/2021 Do you [...] Answer Date Recorded Total Score 0 08/17/2021 [facility] of Occupat ional Health - Occupational Stress [...] documented as of this encounter Care Teams Mobile Engineer Relationship Specialty Start Date End Date Samm Serrano MD PCP - General Family Medicine 02/26/24 documented as of this encounter
--- OUTSIDE RECORDS SUMMARY | 2025-04-22 13:49 | XMS_ITS | Encounter Summary ---
Author Organization [facility] Address [address] [place] [address] Care Team Providers Care Lamination Technician Name Role Phone Samm Serrano MD Primary Care Provider [phone] Tom Gonzalez Unavailable [phone] Andreas Pierre MD Unavailable Virgil Carrillo MD Unavailable Jethro Mendoza MD Unavailable Isaías Kinney MD Unavailable [phone] Source Comments In the event this information is protected by the Federal Confidentiality of Alcohol and Drug AbusePatient Records regulations: The Federal rules restrict any use of the information to criminally investigate or prosecute any alcohol or drug abuse patient.[facility] Reason for Visit * Reason Comments Outside Labs-[facility] Ordered Outside labs lamont baca 02/22/25 from Mitzy Rubin, scanned into [employer] for review Encounter Details Date Type Department Care Team (Late st Contact Info) Description 02/23/2025 Telephone Cardiology [address] [place] [address] Isaías Kinney MD [address] [place] [address] Outside Labs-[facility] Ordered (Outside labs dated 02/22/25 from Mitzy Rubin, scanned into [employer] for review) Social History Tobacco Use Types [...] place to sleep or slept in a longterm (including now)? No 03/02/2024 Housing Stability Vital [...] were you homeless or living in a longterm (including now)? Yes 07/22/2024 Area Deprivation Index Answer Date Rich rded National Score (1-100), lower number is lower ri sk 52 02/05/2024 State Score (1-10), lower number is lower risk 3 02/05/2024 Data from: https://www.neighborhoodatlas.medicine.[facility].edu/. Last address used for calculation [address] [place] [address] [address] 02/05/2024 Sex and Gender Information [...] Kinney MD Schroll, Shirley; Hvi J3-4 Opd [id number] minutes ago (3:43 PM) Please call Mr. [...] PM EDT .Outside labs dated 02/22/25 from [facility], scanned into [employer] for review documented in this encounter Plan of Treatment Upcoming Encounters Date Type Department Care Team (Latest Contact Info) Description 06/30/2025 10:00 AM EDT Office Visit Cardiology [address] [place] [address] Isaías Kinney MD [address] [place] [address] DX: Chronic diastolic heart failure 09/20/2025 8:15 AM EST Procedure Cardiology [address] [place] [address] Dx. Atherosclerotic heart disease of [place] coronary artery with other forms of angina pectoris 09/20/2025 9:00 AM EST Appointment Cardiology [address] [place] [address] Dx. Atherosclerotic heart disease of [place] coronary artery with other forms of angina pectoris 09/20/2025 9:45 AM EST Office Visit Cardiology [address] [place] [id number] Nj Wei MD [address] [place] [id number] Dx. Atherosclerotic heart disease of [place] coronary artery with other forms of angina pectoris documented as of this encounter Goals Goal Patient Goal Type Associated Problems Recent Progress Patient-Stated? Author Blood Pressure < 130/80 Blood Pressure 134/63( 025 3:00 PM EDT) Lidia Soto RN documented as of this encounter Visit Diagnoses Not on filedocumented in this encounter Care Teams Lamination Technician Relationship Specialty Start Date End Date Samm Serrano MD PCP - General Family Medicine 05/30/12 Tom Gonzalez [address] [place] [address] Primary Staff Physician Cardiology 12/02/18 Andreas Pierre MD [address] [place] [address] Primary Staff Physician Cardiology 04/26/23 Virgil Carrillo MD [address] [place] [address] Primary Staff Physician Cardiology 10/29/23 Jethro Mendoza MD [address] [place] [address] Primary Staff Physician Cardiology 12/26/23 Isaías Kinney MD [address] [place] [address] Primary Staff Physician Cardiology 01/10/24 documented as of this encounter
--- OUTSIDE RECORDS SUMMARY | 2025-04-22 13:49 | XMS_ITS | Encounter Summary ---
Author Organization [facility] tem Address [id number] [address] [place] [address] Care Team Providers Care Motor Vehicle Dispatcher Name Role Phone Samm Serrano MD Primary Care Provider [phone] Encounter Details Date Type Department Care Team (Late st Contact Info) Description 01/15/[address] [facility] - Cardiac Rehab [address] [place] [phone] Sheila Finney RN Social History Tobacco Use [...] often do you attend chur ch or lutheran services? Never 08/17/2021 Do you belong to any clubs o r organizations such as sabianist groups, unions, fraternal or athletic groups, or [...] Answer Date Recorded Total Score 0 08/17/2021 [facility] of Occupat ional Health - Occupational Stress [...] documented as of this encounter Care Teams Motor Vehicle Dispatcher Relationship Specialty Start Date End Date Samm Serrano MD PCP - General Family Medicine 02/26/24 documented as of this encounter
--- OUTSIDE RECORDS SUMMARY | 2025-04-22 13:49 | XMS_ITS | Encounter Summary ---
Author Organization [facility] Address [address] [place] [address] Care Team Providers Care Show Host Or Hostess Name Role Phone Samm Serrano MD Primary Care Provider [phone] Tom Gonzalez Unavailable [phone] Andreas Pierre MD Unavailable Virgil Carrillo MD Unavailable Jethro Mendoza MD Unavailable Isaías Kinney MD Unavailable [phone] Source Comments In the event this information is protected by the Federal Confidentiality of Alcohol and Drug AbusePatient Records regulations: The Federal rules restrict any use of the information to criminally investigate or prosecute any alcohol or drug abuse patient.[facility] Encounter Details Date Type Department Care Team (Late st Contact Info) Description 10/21/2024 Patient [facility] Internal Medicine Main [place] [place] [address] Provider, [facility] Reminder: Review your MyChart Caregiver(s) Social History Tobacco Use Types Packs/Day Years Used Date Smoking Tobacco: Former Cigarettes 1 10 0 04/28/1972 - 04/28/1982 Pipe Passive Smoke Exposure: Never Smokeless Tobacco: Never Alcohol Use Standard Drinks/Week Comments Not Currently 0 (1 standard drink = 0.6 oz pur e alcohol) rarely [facility] Utilities Answer Date Recorded In the past 12 months has th e [employer], gas, oil, or water [employer] threatened to shut off services in your [...] any time in the past 12 m [facility], were you homeless or living in a skilled nursing (including now)? Yes 07/22/2024 Area Deprivation Index Answer Date Rich rded National Score (1-100), lower number is lower ri sk 52 02/05/2024 State Score (1-10), lower number is lower risk 3 02/05/2024 Data from: https://www.neighborhoodatlas.[facility].edu/. Last address used for calculation [address] [...] 06/30/2025 10:00 AM EDT Office Visit Cardiology [address] [place] [address] Isaías Kinney MD [address] [place] [address] DX: Chronic diastolic heart failure 09/20/2025 8:15 AM EST Procedure Cardiology [address] [place] [address] Dx. Atherosclerotic heart disease of [place] coronary artery with other forms of angina pectoris 09/20/2025 9:00 AM EST Appointment Cardiology [address] [place] [address] Dx. Atherosclerotic heart disease of [place] coronary artery with other forms of angina pectoris 09/20/2025 9:45 AM EST Office Visit Cardiology [address] [place] [address] Nj Wei MD [address] [place] [address] Dx. Atherosclerotic heart disease of [place] coronary artery with other forms of angina pectoris documented as of this encounter Goals Goal Patient Goal Type Associated Problems Recent Progress Patient-Stated? Author Blood Pressure < 130/80 Blood Pressure 134/63( 025 3:00 PM EDT) No Lidia Lo, ARIES documented as of this encounter Visit Diagnoses Not on filedocumented in this encounter Care Teams Show Host Or Hostess Relationship Specialty Start Date End Date Samm Serrano MD PCP - General Family Medicine 05/30/12 Tom Gonzalez [address] [place] [address] Primary Staff Physician Cardiology 12/02/18 Andreas Pierre MD [address] [place] [address] Primary Staff Physician Cardiology 04/26/23 Virgil Carrillo MD [address] [place] [address] Primary Staff Physician Cardiology 10/29/23 Jethro Mendoza MD [address] [place] [address] Primary Staff Physician Cardiology 12/26/23 Isaías Kinney MD [address] [place] [address] Primary Staff Physician Cardiology 01/10/24 documented as of this encounter
--- OUTSIDE RECORDS SUMMARY | 2025-04-22 13:49 | XMS_ITS | Encounter Summary ---
Author Organization [facility] Address [address] [place] [address] Care Team Providers Care Rough Patcher Name Role Phone Samm Serrano MD Primary Care Provider +-[phone] Tom Gonzalez Unavailable [phone] Andreas Pierre MD Unavailable Virgil Carrillo MD Unavailable Jethor Mendoza MD Unavailable Isaías Kinney MD Unavailable [phone] Source Comments In the event this information is protected by the Federal Confidentiality of Alcohol and Drug AbusePatient Records regulations: The Federal rules restrict any use of the information to criminally investigate or prosecute any alcohol or drug abuse patient.[facility] Encounter Details Date Type Department Care Team (Late st Contact Info) Description 02/25/2025 Patient [facility] HB-[address] [place] [address] Tessa Zuniga RPh A Smarter Way to Manage Your Heart Failure Medications Social History Tobacco Use Types Packs/Day Years Used Date Smoking Tobacco: Former Cigarettes 1 10 0 04/28/1972 - 04/28/1982 Pipe Passive Smoke Exposure: Never Smokeless Tobacco: Never Alcohol Use Standard Drinks/Week Comments Not Currently 0 (1 standard drink = 0.6 oz pur e alcohol) rarely [facility] Utilities Answer Date Recorded In the past 12 months has e [employer]ice[employer], gas, oil, or water company threatened to [...] is lower risk 3 02/05/2024 Data from: https://www.neighborhoodatlas.medicine.[facility].edu/. Last address used for calculation [address] [address] 02/05/2024 Sex and Gender Information [...] 06/30/2025 10:00 AM EDT Office Visit Cardiology [address] [place] [address] Isaías Kinney MD [address] [place] [address] DX: Chronic diastolic heart failure 09/20/2025 8:15 AM EST Procedure Cardiology [address] [place] [address] Dx. Atherosclerotic heart disease of [place] coronary artery with other forms of angina pectoris 09/20/2025 9:00 AM EST Appointment Cardiology [address] [place] [address] Dx. Atherosclerotic heart disease of [place] coronary artery with other forms of angina pectoris 09/20/2025 9:45 AM EST Office Visit Cardiology [address] [place] [address] Nj eWi MD [address] [place] [address] Dx. Atherosclerotic heart disease of [place] coronary artery with other forms of angina pectoris documented as of this encounter Goals Goal Patient Goal Type Associated Problems Recent Progress Patient-Stated? Author Blood Pressure < 130/80 Blood Pressure 134/63( 025 3:00 PM EDT) Lidia Soto, ARIES documented as of this encounter Visit Diagnoses Not on filedocumented in this encounter Care Teams Rough Patcher Relationship Specialty Start Date End Date Samm Serrano MD PCP - General Family Medicine 05/30/12 Tom Gonzalez [address] [place] [address] Primary Staff Physician Cardiology 12/02/18 Andreas Pierre MD [address] [place] [address] Primary Staff Physician Cardiology 04/26/23 Virgil Carrillo MD [address] [place] [address] Primary Staff Physician Cardiology 10/29/23 Jethro Mendoza MD [address] [place] [address] Primary Staff Physician Cardiology 12/26/23 Isaías Kinney MD [address] [place] [address] Primary Staff Physician Cardiology 01/10/24 documented as of this encounter
--- OUTSIDE RECORDS SUMMARY | 2025-04-22 13:49 | XMS_ITS | Encounter Summary ---
Author Organization [facility] Address [address] [place] [address] Care Team Providers Care Strategic Account Executive Name Role Phone Samm Serrano MD Primary Care Provider +-4 Tom Gonzalez Unavailable [phone] Andreas Pierre MD Unavailable Virgil Carrillo MD Unavailable Jethro Mendoza MD Unavailable Isaías Kinney MD Unavailable [phone] Source Comments In the event this information is protected by the Federal Confidentiality of Alcohol and Drug AbusePatient Records regulations: The Federal rules restrict any use of the information to criminally investigate or prosecute any alcohol or drug abuse patient.[facility] Encounter Details Date Type Department Care Team (Late st Contact Info) Description 09/28/2024 Patient Msg Radiation Oncology [address] [place] [address] [place] [address] Yung Andrade MD [address] [place] [address] Appointment Cancellation Request Social History Tobacco Use Types Packs/Day Years Used Date Smoking Tobacco: Former Cigarettes 1 10 0 04/28/1972 - 04/28/1982 Pipe Passive Smoke Exposure: Never Smokeless Tobacco: Never Alcohol Use Standard Drinks/Week Comments Not Currently 0 (1 standard drink = 0.6 oz pur e alcohol) rarely [facility] Utilities Answer Date Recorded In the [...] medical center.edu/. Last address used for calculation [address] [place] [address] [address] 02/05/2024 Sex and Gender Information [...] Assessment Author No 09/25/2024 12:55 PM Allyn Gacria RN * Are you blind or do [...] 06/30/2025 10:00 AM EDT Office Visit Cardiology [address] [place] [address] Isaías Kinney MD [address] [place] [address] DX: Chronic diastolic heart failure 09/20/2025 8:15 AM EST Procedure Cardiology [address] [place] [address] Dx. Atherosclerotic heart disease of [place] coronary artery with other forms of angina pectoris 09/20/2025 9:00 AM EST Appointment Cardiology [address] [place] [address] Dx. Atherosclerotic heart disease of [place] coronary artery with other forms of angina pectoris 09/20/2025 9:45 AM EST Office Visit Cardiology [address] [place] [address] Nj Wei MD [address] [place] [address] Dx. Atherosclerotic heart disease of [place] coronary artery with other forms of angina pectoris documented as of this encounter Goals Goal Patient Goal Type Associated Problems Recent Progress Patient-Stated? Author Blood Pressure < 130/80 Blood Pressure 134/63( 025 3:00 PM EDT) No Lidia Lo RN documented as of this encounter Visit Diagnoses Not on filedocumented in this encounter Care Teams Strategic Account Executive Relationship Specialty Start Date End Date Samm Serrano MD PCP - General Family Medicine 05/30/12 Tom Gonzalez [address] [place] [address] Primary Staff Physician Cardiology 12/02/18 Andreas Pierre MD [address] [place], [place] [phone] Primary Staff Physician Cardiology 04/26/23 Virgil Carrillo MD [address] [place] [phone] Primary Staff Physician Cardiology 10/29/23 Jethro Mendoza MD [address] [place] [address] Primary Staff Physician Cardiology 12/26/23 Isaías Kinney MD [address] [place] [address] Primary Staff Physician Cardiology 01/10/24 documented as of this encounter
--- OUTSIDE RECORDS SUMMARY | 2025-04-22 13:49 | XMS_ITS | Encounter Summary ---
Author Organization [facility] Address [address] [place] [address] Care Team Providers Care Bench Patternmaker Metal Name Role Phone Samm Serrano MD Primary Care Provider +-4 Tom Gonzalez Unavailable [phone] Andreas Pierre MD Unavailable Virgil Carrillo MD Unavailable Jethro Mendoza MD Unavailable Isaías Kinney MD Unavailable [phone] Source Comments In the event this information is protected by the Federal Confidentiality of Alcohol and Drug AbusePatient Records regulations: The Federal rules restrict any use of the information to criminally investigate or prosecute any alcohol or drug abuse patient.[facility] Encounter Details Date Type Department Care Team (Late st Contact Info) Description 11/01/2023 Get Medical Advice Cardiology [address] [place], [place] [phone] Virgil Carrillo MD [address] [place] [address] Lab results from 24 Social History Tobacco [...] lower risk 3 04/02/2023 Data from: https://www.neigh borhoodatlas.[facility].edu/. Last address used for calculation [address] [...] 06/30/2025 10:00 AM EDT Office Visit Cardiology [address] [place] [address] Isaías Kinney MD [address] [place] [address] DX: Chronic diastolic heart failure 09/20/2025 8:15 AM EST Procedure Cardiology [address] [place] [address] Dx. Atherosclerotic heart disease of [place] coronary artery with other forms of angina pectoris 09/20/2025 9:00 AM EST Appointment Cardiology [address] [place] [address] Dx. Atherosclerotic heart disease of [place] coronary artery with other forms of angina pectoris 09/20/2025 9:45 AM EST Office Visit Cardiology [address] [place] [address] Nj eWi MD [address] [place] [address] Dx. Atherosclerotic heart disease of [place] coronary artery with other forms of angina pectoris documented as of this encounter Visit Diagnoses Not on filedocumented in this encounter Care Teams Bench Patternmaker Metal Relationship Specialty Start Date End Date Samm Serrano MD PCP - General Family Medicine 05/30/12 Tom Gonzalez [address] [place] [address] Primary Staff Physician Cardiology 12/02/18 Andreas Pierre MD [address] [place] [address] Primary Staff Physician Cardiology 04/26/23 Virgil Carrillo MD [address] [place] [address] Primary Staff Physician Cardiology 10/29/23 Jethro Mendoza MD [address] [place] [address] Primary Staff Physician Cardiology 12/26/23 Isaías Kinney MD [address] [place] [address] Primary Staff Physician Cardiology 01/10/24 documented as of this encounter
--- OUTSIDE RECORDS SUMMARY | 2025-04-22 13:49 | XMS_ITS | Encounter Summary ---
Author Organization [facility] [employer] s tem Address [id number] [address] [place] [address] Care Team Providers Care Prison Classification Counselor Name Role Phone Samm Serrano MD Primary Care Provider [phone] Encounter Details Date Type Department Care Team (Late st Contact Info) Description 04/06/2025 Lab Requisition [facility] [address] [place] [phone] Samm Serrano MD [address] [place] [address] Hyperkalemia; Non-ST elevation (NSTEMI) myocardial infarction ([facility]); Heart failure, unspecified ([facility]) Social History Tobacco Use Types Packs/Day [...] How often do you attend chur or islam services? Never 08/17/2021 Do you belong to any clubs o r organizations such as roman catholic groups, unions, fraternal or athletic groups, or [...] Recorded Do you need help finding a [facility] and/or a training program? [...] - 4.67 uIU/mL 04/06/2025 4:25 PM EDT [facility] Blood Venous blood / Unknown 04/06/2025 3:00 PM EDT 04/06/2025 3:31 PM EDT us Samm Serrano MD LAB BLOOD ORDERABLES Final Resu lt Performing Organization Address [facility]/ZIP Co de Phone Number [address] [place] [address], * T4, free (04/06/2025 3:00 PM EDT) FREE T4 1.19 0.61 - 1.60 ng/dL 04/06/2025 4:27 PM EDT [facility] Blood Venous blood / Unknown 04/06/2025 3:00 PM EDT 04/06/2025 3:31 PM EDT us Samm Serrano MD LAB BLOOD ORDERABLES Final Resu lt [address] [place] [address], [place] * T3, free (04/06/2025 3:00 PM EDT) FREE T3 2.89 2.50 - 3.90 pg/mL 04/07/2025 2:57 AM EDT [facility] Blood Venous blood / Unknown 04/06/2025 3:00 PM EDT 04/06/2025 3:31 PM EDT Samm Serrano MD LAB BLOOD ORDERABLES Final Resu lt [facility] [address] [place] [address], * Magnesium (04/06/2025 3:00 PM EDT) MAGNESIUM 2.6 1.8 - 2.6 mg/dL 04/06/2025 4:06 PM EDT [facility] Blood Venous blood / Unknown 04/06/2025 3:00 PM EDT 04/06/2025 3:31 PM EDT Samm Serrano MD LAB BLOOD ORDERABLES Final Resu lt [facility] [address] [place] [address], [place] * Iron and TIBC (04/06/2025 3:00 PM EDT) IRON 60 50 - 212 ug/dL 04/07/2025 2:51 AM EDT [facility] TRANSFERRIN 202 168 - 336 mg/dL 04/07/2025 2:51 AM EDT [facility] IRON BINDING 283 250 - 425 ug/dL 04/07/2025 2:51 AM EDT [facility] IRON SATURATION 21 20 - 50 % SATURATION 04/07/2025 2:51 AM EDT [facility] Blood Venous blood / Unknown 04/06/2025 3:00 PM EDT 04/06/2025 3:31 PM EDT us Samm Serrano MD LAB BLOOD ORDERABLES Final Resu lt [facility] [address] [place] [address], [place] [phone] * (ABNORMAL) CBC auto differential (04/06/2025 3:00 PM EDT) WBC 5.7 4 - 11 x10E9/L 04/06/2025 3:55 PM EDT [facility] RBC Count 3.78(L) 4.1 - 5.7 X10E12/L 04/06/2025 3:55 PM EDT [facility] Hemoglobin 11.5(L) 13 - 17 g/dL 04/06/2025 3:55 PM EDT [facility] Hematocrit 34.6(L) 39 - 50 % 04/06/2025 3:55 PM EDT [facility] MCV 92 80 - 100 fL 04/06/2025 3:55 PM EDT [facility] MCH 30.4 27 - 34 pg 04/06/2025 3:55 PM EDT [facility] MCHC 33.2 32 - 36 g/dL 04/06/2025 3:55 PM EDT [facility] RDW 17.3(H) 11.5 - 15 % 04/06/2025 3:55 PM EDT [facility] Platelet Count 143(L) 150 - 450 X10E9/L 04/06/2025 3:55 PM EDT [facility] MPV 8.3 7 - 12 fL 04/06/2025 3:55 PM EDT [facility] Neutrophils % 70.8 % 04/06/2025 3:55 PM EDT [facility] Lymphocytes % 12.9 % 04/06/2025 3:55 PM EDT [facility] Monocytes % 11.5 % 04/06/2025 3:55 PM EDT [facility] Eosinophils % 4.2 % 04/06/2025 3:55 PM EDT [facility] Basophils % 0.6 % 04/06/2025 3:55 PM EDT [facility] Neutrophils Absolute (A) 4.0 1.5 - 6.6 10*3/uL 04/06/2025 3:55 PM EDT [facility] Lymphocytes Absolute 0.7(L) 1.0 - 3.5 10*3/uL 04/06/2025 3:55 PM EDT [facility] Monocytes Absolute 0.7 0.0 - 0.9 10*3/uL 04/06/2025 3:55 PM EDT [facility] Eosinophils Absolute 0.2 0.0 - 0.4 10*3/uL 04/06/2025 3:55 PM EDT [facility] Basophils Absolute 0.0 0.0 - 0.2 10*3/uL 04/06/2025 3:55 PM EDT [facility] Differential Type AUTOMATED DIFFERENTIAL 04/06/2025 3:55 PM EDT [facility] Blood Venous blood / Unknown 04/06/2025 3:00 PM EDT 04/06/2025 3:31 PM EDT us Samm Serrano MD LAB BLOOD ORDERABLES Final Resu lt [facility] [address] [place] [address], [place] * (ABNORMAL) B-type natriuretic peptide (04/06/2025 3:00 PM EDT) BNP 3,367(H) <=100 pg/mL 04/06/2025 4:27 PM EDT [facility] Blood Venous blood / Unknown 04/06/2025 3:00 PM EDT 04/06/2025 3:31 PM EDT us Samm Serrano MD LAB BLOOD ORDERABLES Final Resu lt [facility] [address] [place] [address], [place] * (ABNORMAL) Basic Metabolic Panel (04/06/2025 3:00 PM EDT) SODIUM 134 134 - 146 mmol/L 04/06/2025 4:06 PM EDT [facility] POTASSIUM 4.9 3.5 - 5.0 mmol/L 04/06/2025 4:06 PM EDT [facility] CHLORIDE 102 98 - 109 mmol/L 04/06/2025 4:06 PM EDT [facility] CARBON DIOXIDE 25 22 - 32 mmol/L 04/06/2025 4:06 PM EDT [facility] ANION GAP 7 5 - 15 mmol/L 04/06/2025 4:06 PM EDT [facility] BLOOD UREA NITROGEN 47(H) 5 - 27 mg/dL 04/06/2025 4:06 PM EDT [facility] CREATININE 2.04(H) 0.70 - 1.20 mg/dL 04/06/2025 4:06 PM EDT [facility] Comment:METHOD TRACEABLE TO IDMS STANDARD GLUCOSE 129(H) 65 - 99 mg/dL 04/06/2025 4:06 PM EDT [facility] CALCIUM 8.9 8.5 - 10.5 mg/dL 04/06/2025 4:06 PM EDT [facility] EGFR Non-Race Dependent 32(L) >=60 ml/min/1.7 3sq.m 04/06/2025 4:06 PM EDT [facility] Comment: eGFR not reported due to non-numeric value for Creatinine. Reported eGFR is based on the CKD-EPI 2020 equation that does not use a race coefficient. Blood Venous blood / Unknown 04/06/2025 3:00 PM EDT 04/06/2025 3:31 PM EDT us Samm Serrano MD LAB BLOOD ORDERABLES Final Resu lt [facility] [address] [place] [address], documented in this encounter Visit Diagnoses Diagnosis Hyperkalemia Hyperpotassemia Non-ST elevation (NSTEMI) myocardial infarction (CMS-HCC) Heart failure, unspecified (CMS-HCC) Heart failure, unspecified documented in this encounter Additional Health Concerns Assessment Noted Time PHQ-9 Depression Total Score: 0 08/17/20 21 12:12 PM EST documented as of this encounter Care Teams Prison Classification Counselor Relationship Specialty Start Date End Date Samm Serrano MD PCP - General Family Medicine 02/26/24 documented as of this encounter
--- OUTSIDE RECORDS SUMMARY | 2025-04-22 13:49 | XMS_ITS | Encounter Summary ---
Author Organization [facility] [employer] s tem Address [id number] [address] [place] [address] Care Team Providers Care Pepper Picker Name Role Phone Samm Serrano MD Primary Care Provider [phone] Encounter Details Date Type Department Care Team (Late st Contact Info) Description 03/29/2025 Lab Requisition [facility] - Lab [address] [place] [phone] Samm Serrano MD [address] [place] [address] Hyperkalemia; Non-ST elevation (NSTEMI) myocardial infarction ([facility]); Heart failure, unspecified ([facility]) Social History Tobacco Use Types [...] How often do you attend chur or faith services? Never 08/17/2021 Do you belong to any clubs o r organizations such as temple groups, unions, fraternal or athletic groups, or [...] Answer Date Recorded Total Score 0 08/17/2021 [facility] - Occupational [...] Recorded Do you need help finding a [facility] career [facility] and/or a training [...] - 1.60 ng/dL 03/29/2025 5:51 PM EDT [facility] TSH 0.75 0.49 - 4.67 uIU/mL 03/29/2025 5:51 PM EDT [facility] Blood Venous blood / Unknown 03/29/2025 3:57 PM EDT 03/29/2025 4:40 PM EDT us Samm Serrano MD LAB BLOOD ORDERABLES Final Resu lt [facility] [address] [place] [address], * T3, free (03/29/2025 3:57 PM EDT) FREE T3 2.79 2.50 - 3.90 pg/mL 03/30/2025 12:51 PM EDT [facility] Blood Venous blood / Unknown 03/29/2025 3:57 PM EDT 03/29/2025 4:40 PM EDT us Samm Serrano MD LAB BLOOD ORDERABLES Final Resu lt [facility] [address] [place] [address], [place] [phone] * (ABNORMAL) Magnesium (03/29/2025 3:57 PM EDT) MAGNESIUM 2.7(H) 1.8 - 2.6 mg/dL 03/29/2025 5:28 PM EDT [facility] Blood Venous blood / Unknown 03/29/2025 3:57 PM EDT 03/29/2025 4:40 PM EDT us Samm Serrano MD LAB BLOOD ORDERABLES Final Resu lt [facility] [address] [place] [address], * (ABNORMAL) Iron and TIBC (03/29/2025 3:57 PM EDT) IRON 46(L) 50 - 212 ug/dL 03/30/2025 12:19 PM EDT [facility] TRANSFERRIN 188 168 - 336 mg/dL 03/30/2025 12:19 PM EDT [facility] IRON BINDING 263 250 - 425 ug/dL 03/30/2025 12:19 PM EDT [facility] IRON SATURATION 17(L) 20 - 50 % SATURATION 03/30/2025 12:19 PM EDT [facility] Blood Venous blood / Unknown 03/29/2025 3:57 PM EDT 03/29/2025 4:40 PM EDT us Samm Serrano MD LAB BLOOD ORDERABLES Final Resu lt [facility] [address] [place] [address], [place] [phone] * (ABNORMAL) B-type natriuretic peptide (03/29/2025 3:57 PM EDT) BNP 2,350(H) <=100 pg/mL 03/29/2025 7:00 PM EDT [facility] Blood Venous blood / Unknown 03/29/2025 3:57 PM EDT 03/29/2025 4:40 PM EDT us Samm Serrano MD LAB BLOOD ORDERABLES Final Resu lt [facility] [address] [place] [address], [place] * (ABNORMAL) CBC auto differential (03/29/2025 3:57 PM EDT) WBC 4.6 4 - 11 x10E9/L 03/29/2025 5:02 PM EDT [facility] RBC Count 3.50(L) 4.1 - 5.7 X10E12/L 03/29/2025 5:02 PM EDT [facility] Hemoglobin 10.7(L) 13 - 17 g/dL 03/29/2025 5:02 PM EDT [facility] Hematocrit 31.9(L) 39 - 50 % 03/29/2025 5:02 PM EDT [facility] MCV 91 80 - 100 fL 03/29/2025 5:02 PM EDT [facility] MCH 30.5 27 - 34 pg 03/29/2025 5:02 PM EDT [facility] MCHC 33.4 32 - 36 g/dL 03/29/2025 5:02 PM EDT [facility] RDW 17.0(H) 11.5 - 15 % 03/29/2025 5:02 PM EDT [facility] Platelet Count 149(L) 150 - 450 X10E9/L 03/29/2025 5:02 PM EDT [facility] MPV 8.8 7 - 12 fL 03/29/2025 5:02 PM EDT [facility] Neutrophils % 67.6 % 03/29/2025 5:02 PM EDT [facility] Lymphocytes % 14.0 % 03/29/2025 5:02 PM EDT [facility] Monocytes % 14.0 % 03/29/2025 5:02 PM EDT [facility] Eosinophils % 3.9 % 03/29/2025 5:02 PM EDT [facility] Basophils % 0.5 % 03/29/2025 5:02 PM EDT [facility] Neutrophils Absolute (A) 3.1 1.5 - 6.6 10*3/uL 03/29/2025 5:02 PM EDT [facility] Lymphocytes Absolute 0.6(L) 1.0 - 3.5 10*3/uL 03/29/2025 5:02 PM EDT [facility] Monocytes Absolute 0.6 0.0 - 0.9 10*3/uL 03/29/2025 5:02 PM EDT [facility] Eosinophils Absolute 0.2 0.0 - 0.4 10*3/uL 03/29/2025 5:02 PM EDT [facility] Basophils Absolute 0.0 0.0 - 0.2 10*3/uL 03/29/2025 5:02 PM EDT [facility] Differential Type AUTOMATED DIFFERENTIAL 03/29/2025 5:02 PM EDT [facility] Blood Venous blood / Unknown 03/29/2025 3:57 PM EDT 03/29/2025 4:40 PM EDT us Samm Serrano MD LAB BLOOD ORDERABLES Final Resu lt [facility] [address] [place] [address], [place] * (ABNORMAL) Basic Metabolic Panel (03/29/2025 3:57 PM EDT) SODIUM 134 134 - 146 mmol/L 03/29/2025 5:28 PM EDT [facility] POTASSIUM 4.1 3.5 - 5.0 mmol/L 03/29/2025 5:28 PM EDT [facility] CHLORIDE 106 98 - 109 mmol/L 03/29/2025 5:28 PM EDT [facility] CARBON DIOXIDE 22 22 - 32 mmol/L 03/29/2025 5:28 PM EDT [facility] ANION GAP 6 5 - 15 mmol/L 03/29/2025 5:28 PM EDT [facility] BLOOD UREA NITROGEN 72(H) 5 - 27 mg/dL 03/29/2025 5:28 PM EDT [facility] CREATININE 1.95(H) 0.70 - 1.20 mg/dL 03/29/2025 5:28 PM EDT [facility] Comment:METHOD TRACEABLE TO IDMS STANDARD GLUCOSE 91 65 - 99 mg/dL 03/29/2025 5:28 PM EDT [facility] CALCIUM 8.5 8.5 - 10.5 mg/dL 03/29/2025 5:28 PM EDT [facility] EGFR Non-Race Dependent 34(L) >=60 ml/min/1.7 3sq.m 03/29/2025 5:28 PM EDT [facility] Comment: eGFR not reported due to non-numeric value for Creatinine. Reported eGFR is based on the CKD-EPI 2020 equation that does not use a race coefficient. Blood Venous blood / Unknown 03/29/2025 3:57 PM EDT 03/29/2025 4:40 PM EDT us Samm Serrano MD LAB BLOOD ORDERABLES Final Resu lt [facility] [address] [place] [address], documented in this encounter Visit Diagnoses Diagnosis Hyperkalemia Hyperpotassemia Non-ST elevation (NSTEMI) myocardial infarction (CMS-HCC) Heart failure, unspecified (CMS-HCC) Heart failure, unspecified documented in this encounter Additional Health Concerns Assessment Noted Time PHQ-9 Depression Total Score: 0 08/17/20 21 12:12 PM EST documented as of this encounter Care Teams Pepper Picker Relationship Specialty Start Date End Date Samm Serrano MD PCP - General Family Medicine 02/26/24 documented as of this encounter
--- OUTSIDE RECORDS SUMMARY | 2025-04-22 13:49 | XMS_ITS | Encounter Summary ---
Author Organization [facility] tem Address [facility]-[id number] [address] [place] [address] Care Team Providers Care Diesel Powerplant Mechanic Helper Name Role Phone Samm Serrano MD Primary Care Provider [phone] Encounter Details Date Type Department Care Team (Late st Contact Info) Description 01/14/2024 Telephone [facility] - Cardiac Rehab [address] [place] [phone] Sheila Finney RN Social History Tobacco Use [...] often do you attend chur ch or hoahaoism services? Never 08/17/2021 Do you belong to any clubs o r organizations such as cheondoism groups, unions, fraternal or athletic groups, or [...] Answer Date Recorded Total Score 0 08/17/2021 [facility] [place] of Occupat ional Health - Occupational Stress [...] documented as of this encounter Care Teams Diesel Powerplant Mechanic Helper Relationship Specialty Start Date End Date Samm Serrano MD PCP - General Family Medicine 02/26/24 documented as of this encounter
--- OUTSIDE RECORDS SUMMARY | 2025-04-22 13:49 | XMS_ITS | Encounter Summary ---
Author Organization [facility] Address [address] [place] [address] Care Team Providers Care School Nurse Name Role Phone Samm Serrano MD Primary Care Provider [phone] Tom Gonzalez Unavailable [phone] Andreas Pierre MD Unavailable Virgil Carrillo MD Unavailable Jethro Mendoza MD Unavailable Isaías Kinney MD Unavailable [phone] Source Comments In the event this information is protected by the Federal Confidentiality of Alcohol and Drug AbusePatient Records regulations: The Federal rules restrict any use of the information to criminally investigate or prosecute any alcohol or drug abuse patient.[facility] Reason for Visit * Reason Comments Follow Up Encounter Details Date Type Department Care Team (Late st Contact Info) Description 12/10/2024 Telephone Cardiology [address] [place] [address] Isaías Kinney MD [address] [place] [address] Follow Up Social History Tobacco Use Types Packs/Day Years Used Date Smoking Tobacco: Former Cigarettes 1 10 0 04/28/1972 - 04/28/1982 Pipe Passive Smoke Exposure: Never Smokeless Tobacco: Never Alcohol Use Standard Drinks/Week Comments Not Currently 0 (1 standard drink = 0.6 oz pur e alcohol) rarely [facility] Utilities Answer Date Recorded In the [...] living in a long term (including now)? Yes 07/22/2024 Area Deprivation Index Answer Date Rich rded National Score (1-100), lower number is lower ri sk 52 02/05/2024 State Score (1-10), lower number is lower risk 3 02/05/2024 Data from: https://www.neighborhoodatlas.medicine.[facility].edu/. Last address used for calculation [address] [place] [address] [address] 02/05/2024 Sex and Gender Information [...] Allyn Garcia, RN documented in this encounter Miscellaneous Notes * Telephone Encounter - Isaías Kinney MD - 12/15/2024 9:57 AM EDT Conveyed echo results via [employer]. Can add on virtual on administrative day in late December please. Micaela Kinney MD MSc * Telephone Encounter - Lindsay Ross - 12/10/2024 1:08 PM EDT Patient had EKG and echo this past Saturday. Please call with results to daughter Charu [phone]. Thank you, Lindsay documented in this encounter Plan of Treatment Upcoming Encounters Date Type Department Care Team (Latest Contact Info) Description 06/30/2025 10:00 AM EDT Office Visit Cardiology [address] [place], [place] [phone] Isaías Kinney MD [address] [place] [address] DX: Chronic diastolic heart failure 09/20/2025 8:15 AM EST Procedure Cardiology [address] [place] [address] Dx. Atherosclerotic heart disease of [place] coronary artery with other forms of angina pectoris 09/20/2025 9:00 AM EST Appointment Cardiology [address] [place] [address] Dx. Atherosclerotic heart disease of [place] coronary artery with other forms of angina pectoris 09/20/2025 9:45 AM EST Office Visit Cardiology [address] [place] [address] Nj Wei MD [address] [place] [address] Dx. Atherosclerotic heart disease of [place] coronary artery with other forms of angina pectoris documented as of this encounter Goals Goal Patient Goal Type Associated Problems Recent Progress Patient-Stated? Author Blood Pressure < 130/80 Blood Pressure 134/63( 025 3:00 PM EDT) Lidia Soto, RN documented as of this encounter Visit Diagnoses Not on filedocumented in this encounter Care Teams School Nurse Relationship Specialty Start Date End Date Samm Serrano MD PCP - General Family Medicine 05/30/12 Tom Gonzalez [address] [place] [address] Primary Staff Physician Cardiology 12/02/18 Andreas Pierre MD [address] [place] [address] Primary Staff Physician Cardiology 04/26/23 Virgil Carrillo MD [address] [place], [place] [phone] Primary Staff Physician Cardiology 10/29/23 Jethro Mendoza MD [address] [place] [address] Primary Staff Physician Cardiology 12/26/23 Isaías Kinney MD [address] [place] [address] Primary Staff Physician Cardiology 01/10/24 documented as of this encounter
--- OUTSIDE RECORDS SUMMARY | 2025-04-22 13:49 | XMS_ITS | Encounter Summary ---
Author Organization [facility] Address [address] [place] [address] Care Team Providers Care Benzene Worker Name Role Phone Samm Serrano MD Primary Care Provider +-4 Tom Gonzalez Unavailable [phone] Andreas Pierre MD Unavailable Virgil Carrillo MD Unavailable Jethro Mendoza MD Unavailable Isaías Kinney MD Unavailable [phone] Source Comments In the event this information is protected by the Federal Confidentiality of Alcohol and Drug AbusePatient Records regulations: The Federal rules restrict any use of the information to criminally investigate or prosecute any alcohol or drug abuse patient.[facility] Encounter Details Date Type Department Care Team (Late st Contact Info) Description 11/01/2023 Get Medical Advice Cardiology [address] [place], [place] [phone] Virgil Carrillo MD [address] [place] [address] additional lab results (FX-Qhn-B-Type Natriuretic Peptide) Social History Tobacco Use Types [...] 3 04/02/2023 Data from: https://www.neigh borhoodatlas.medicine.[facility].edu/. Last address used for calculation [address] [...] 06/30/2025 10:00 AM EDT Office Visit Cardiology [address] [place] [address] Isaías Kinney MD [address] [place] [phone] DX: Chronic diastolic heart failure 09/20/2025 8:15 AM EST Procedure Cardiology [address] [place] [address] Dx. Atherosclerotic heart disease of [place] coronary artery with other forms of angina pectoris 09/20/2025 9:00 AM EST Appointment Cardiology [address] [place] [address] Dx. Atherosclerotic heart disease of [place] coronary artery with other forms of angina pectoris 09/20/2025 9:45 AM EST Office Visit Cardiology [address] [place] [address] Nj Wei MD [address] [place] [address] Dx. Atherosclerotic heart disease of [place] coronary artery with other forms of angina pectoris documented as of this encounter Visit Diagnoses Not on filedocumented in this encounter Care Teams Benzene Worker Relationship Specialty Start Date End Date Samm Serrano MD PCP - General Family Medicine 05/30/12 Tom Gonzalez [address] [place] [address] Primary Staff Physician Cardiology 12/02/18 Andreas Pierre MD [address] [facility] [place] [address] Primary Staff Physician Cardiology 04/26/23 Virgil Carrillo MD [address] [place] [address] Primary Staff Physician Cardiology 10/29/23 Jethro Mendoza MD [address] [facility] [place] [address] Primary Staff Physician Cardiology 12/26/23 Isaías Kinney MD [address] [place] [address] Primary Staff Physician Cardiology 01/10/24 documented as of this encounter
--- OUTSIDE RECORDS SUMMARY | 2025-04-22 13:49 | XMS_ITS | Encounter Summary ---
[facility] Organization [facility] Address [facility]-[id number] [address] [place] [address] Care Team Providers Care Receiving Room Clerk Name Role Phone Samm Serrano MD Primary Care Provider [phone] Reason for Visit * Reason Onset Date Comments Med Refill 01/31/2022 Encounter Details Date Type Department Care Team (Late st Contact Info) Description 01/31/2022 Refill [facility] Neurology [address] [place] [address] Albertina Infante RMA Cerebrovascular accident [...] often do you attend chur ch or spiritism services? Never 08/17/2021 Do you belong to any clubs o r organizations such as caodaism groups, unions, fraternal or athletic groups, or [...] Answer Date Recorded Total Score 0 08/17/2021 [facility] of Occupat ional Health - Occupational [...] Re[facility] 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
--- OUTSIDE RECORDS SUMMARY | 2025-04-22 13:49 | XMS_ITS | Encounter Summary ---
Author Organization [facility] irisnote s tem Address [id number] [address] [place] [address] Care Team Providers Care Real Estate Internship Name Role Phone Samm Serrano MD Primary Care Provider [phone] Encounter Details Date Type Department Care Team (Late st Contact Info) Description 03/24/2025 Lab Requisition [facility] - Lab [address] [place] [phone] Samm Serrano MD [address] [place] [address] Chronic systolic (congestive) heart failure (CMS-HCC); Chronic [...] How often do you attend chur or yazdanism services? Never 08/17/2021 Do you belong to [...] Answer Date Recorded Total Score 0 08/17/2021 [facility] of Occupat ional Health - [...] AM EDT Chronic systolic (congestive) heart failure ([facility]-HCC) Chronic kidney disease, stage 3 unspecified (CMS-HCC) documented in this encounter Results * Prostatic specific antigen screen (03/24/2025 11:38 AM EDT) Pathologist [facility] PROSTATIC SPEC ANT <0.01 0.00 - 4.00 ng/mL 03/24/2025 7:33 PM EDT [facility] Comment: The method used for this test is Ronna Zova DXI chemiluminescent immunoassay. Values obtained by different assay methods cannot be used interchangeably. Blood Venous blood / Unknown 03/24/2025 11:38 AM EDT 03/24/2025 12:16 PM EDT us Samm Serrano MD LAB BLOOD ORDERABLES Final Resu lt [facility] [address] [place] [address], [place] [phone] * (ABNORMAL) CBC auto differential (03/24/2025 11:38 AM EDT) [facility] WBC 5.2 4 - 11 x10E9/L 03/24/2025 12:19 PM EDT [facility] RBC Count 3.86(L) 4.1 - 5.7 X10E12/L 03/24/2025 12:19 PM EDT [facility] Hemoglobin 11.6(L) 13 - 17 g/dL 03/24/2025 12:19 PM EDT [facility] Hematocrit 35.5(L) 39 - 50 % 03/24/2025 12:19 PM EDT [facility] MCV 92 80 - 100 fL 03/24/2025 12:19 PM EDT [facility] MCH 30.0 27 - 34 pg 03/24/2025 12:19 PM EDT [facility] MCHC 32.6 32 - 36 g/dL 03/24/2025 12:19 PM EDT [facility] RDW 17.4(H) 11.5 - 15 % 03/24/2025 12:19 PM EDT [facility] Platelet Count 179 150 - 450 X10E9/L 03/24/2025 12:19 PM EDT [facility] MPV 9.2 7 - 12 fL 03/24/2025 12:19 PM EDT [facility] Neutrophils % 69.6 % 03/24/2025 12:19 PM EDT [facility] Lymphocytes % 13.4 % 03/24/2025 12:19 PM EDT [facility] Monocytes % 12.5 % 03/24/2025 12:19 PM EDT [facility] Eosinophils % 4.0 % 03/24/2025 12:19 PM EDT [facility] Basophils % 0.5 % 03/24/2025 12:19 PM EDT [facility] Neutrophils Absolute (A) 3.6 1.5 - 6.6 10*3/uL 03/24/2025 12:19 PM EDT [facility] Lymphocytes Absolute 0.7(L) 1.0 - 3.5 10*3/uL 03/24/2025 12:19 PM EDT [facility] Monocytes Absolute 0.7 0.0 - 0.9 10*3/uL 03/24/2025 12:19 PM EDT [facility] Eosinophils Absolute 0.2 0.0 - 0.4 10*3/uL 03/24/2025 12:19 PM EDT [facility] Basophils Absolute 0.0 0.0 - 0.2 10*3/uL 03/24/2025 12:19 PM EDT [facility] Differential Type AUTOMATED DIFFERENTIAL 03/24/2025 12:19 PM EDT [facility] Blood Venous blood / Unknown 03/24/2025 11:38 AM EDT 03/24/2025 12:16 PM EDT us Samm Serrano MD LAB BLOOD ORDERABLES Final Resu lt Performing Organization Address [facility] Co de Phone Number [address] [place] [address], [place] * (ABNORMAL) AST (03/24/2025 11:38 AM EDT) AST 49(H) <=41 U/L 03/24/2025 12:34 PM EDT [facility] Blood Venous blood / Unknown 03/24/2025 11:38 AM EDT 03/24/2025 12:16 PM EDT us Samm Serrano MD LAB BLOOD ORDERABLES Final Resu lt Performing Organization Address [facility] Co de Phone Number [address] [place] [address], [place] * ALT (03/24/2025 11:38 AM EDT) ALT 39 <=40 U/L 03/24/2025 12:34 PM EDT [facility] Blood Venous blood / Unknown 03/24/2025 11:38 AM EDT 03/24/2025 12:16 PM EDT us Samm Serrano MD LAB BLOOD ORDERABLES Final Resu lt Performing Organization Address City/[facility] Co de Phone Number [address] [place] [address], [place] * (ABNORMAL) Liver panel (03/24/2025 11:38 AM EDT) TOTAL PROTEIN 6.4 6.0 - 8.0 g/dL 03/24/2025 12:34 PM EDT [facility] ALBUMIN 3.2 3.2 - 5.3 g/dL 03/24/2025 12:34 PM EDT [facility] BILIRUBIN,TOTAL 0.8 0.3 - 1.2 mg/dL 03/24/2025 12:34 PM EDT [facility] ALKALINE PHOSPHATASE 138(H) 39 - 130 U/L 03/24/2025 12:34 PM EDT [facility] AST 49(H) <=41 U/L 03/24/2025 12:34 PM EDT [facility] ALT 39 <=40 U/L 03/24/2025 12:34 PM EDT [facility] BILIRUBIN,DIRECT 0.4 <=0.4 mg/dL 03/24/2025 12:34 PM EDT [facility] Blood Venous blood / Unknown 03/24/2025 11:38 AM EDT 03/24/2025 12:16 PM EDT us Samm Serrano MD LAB BLOOD ORDERABLES Final Resu lt Performing Organization Address City/State/[facility] Co de Phone Number [facility] [address] [place] [address], * Lipid profile (03/24/2025 11:38 AM EDT) CHOLESTEROL 154 150 - 200 mg/dL 03/24/2025 7:28 PM EDT [facility] TRIGLYCERIDE 55 27 - 150 mg/dL 03/24/2025 7:28 PM EDT [facility] HDL CHOLESTEROL 49 >39 mg/dL 7:28 PM EDT [facility] Comment: HDL <40 mg/dL - High Risk HDL > or = 40mg/dL- Desirable HDL >60 mg/dL - Negative Risk LDL (CALC) 94 <130 mg/dL 03/24/2025 7:28 PM EDT [facility] Comment: LDL <100 mg/dL - Desirable LDL >160 mg/dL - High Risk CHOLESTEROL:HDL 3.1 1.0 - 5.0 7:28 PM EDT [facility] VERY LOW LIPOPROTEIN 11 0 - 30 mg/dL 03/24/2025 7:28 PM EDT [facility] Blood Venous blood / Unknown 03/24/2025 11:38 AM EDT 03/24/2025 12:16 PM EDT us Samm Serrano MD LAB BLOOD ORDERABLES Final Resu lt [facility] [address] [place] [address], * (ABNORMAL) Basic Metabolic Panel (03/24/2025 11:38 AM EDT) SODIUM 134 134 - 146 mmol/L 03/24/2025 12:34 PM EDT [facility] POTASSIUM 4.7 3.5 - 5.0 mmol/L 03/24/2025 12:34 PM EDT [facility] CHLORIDE 104 98 - 109 mmol/L 03/24/2025 12:34 PM EDT [facility] CARBON DIOXIDE 21(L) 22 - 32 mmol/L 03/24/2025 12:34 PM EDT [facility] ANION GAP 9 5 - 15 mmol/L 03/24/2025 12:34 PM EDT [facility] BLOOD UREA NITROGEN 78(H) 5 - 27 mg/dL 03/24/2025 12:34 PM EDT [facility] CREATININE 2.00(H) 0.70 - 1.20 mg/dL 03/24/2025 12:34 PM EDT [facility] Comment:METHOD TRACEABLE TO IDMS STANDARD GLUCOSE 121(H) 65 - 99 mg/dL 03/24/2025 12:34 PM EDT [facility] CALCIUM 8.9 8.5 - 10.5 mg/dL 03/24/2025 12:34 PM EDT [facility] EGFR Non-Race Dependent 33(L) >=60 ml/min/1.7 3sq.m 03/24/2025 12:34 PM EDT [facility] Comment: eGFR not reported due to non-numeric value for Creatinine. Reported eGFR is based on the CKD-EPI 2020 equation that does not use a race coefficient. Blood Venous blood / Unknown 03/24/2025 11:38 AM EDT 03/24/2025 12:16 PM EDT us Samm Serrano MD LAB BLOOD ORDERABLES Final Resu lt Performing Organization Address City/State/[facility] Co de Phone Number [facility] [address] documented in this encounter Visit Diagnoses Diagnosis Chronic systolic (congestive) heart failure (CMS-HCC) Chronic kidney disease, stage 3 unspecified (CMS-HCC) documented in this encounter Additional Health Concerns Assessment Noted Time PHQ-9 Depression Total Score: 0 08/17/20 21 12:12 PM EST documented as of this encounter Care Teams Real Estate Internship Relationship Specialty Start Date End Date Samm Serrano MD PCP - General Family Medicine 02/26/24 documented as of this encounter
--- OUTSIDE RECORDS SUMMARY | 2025-04-22 13:49 | XMS_ITS | Encounter Summary ---
Author Organization [facility] Address [address] [place] [address] Care Team Providers Care Microfilm Machine Operator Name Role Phone Samm Serrano MD Primary Care Provider [phone] Tom Gonzalez Unavailable [phone] Andreas Pierre MD Unavailable Virgil Carrillo MD Unavailable Jethro Mendoza MD Unavailable Isaías Kinney MD Unavailable [phone] Source Comments In the event this information is protected by the Federal Confidentiality of Alcohol and Drug AbusePatient Records regulations: The Federal rules restrict any use of the information to criminally investigate or prosecute any alcohol or drug abuse patient.[facility] Encounter Details Date Type Department Care Team (Late st Contact Info) Description 01/21/2025 Get Medical Advice Cardiology [address] [place], [place] [phone] Isaías Kinney MD [address] [place] [address] Thyroid labs and medication Social History Tobacco Use Types Packs/Day Years Used Date Smoking Tobacco: Former Cigarettes 1 10 0 04/28/1972 - 04/28/1982 Pipe Passive Smoke Exposure: Never Smokeless Tobacco: Never Alcohol Use Standard Drinks/Week Comments Not Currently 0 (1 standard drink = 0.6 oz pur e alcohol) rarely [facility] Utilities Answer Date Recorded In the past 12 months has th e [employer], gas, oil, or water [employer] threatened to shut off services in your [...] any time in the past 12 m [facility], were you homeless or living in a residential (including now)? Yes 07/22/2024 Area Deprivation Index Answer Date Rich rded National Score (1-100), lower number is lower ri sk 52 02/05/2024 State Score (1-10), lower number is lower risk 3 02/05/2024 Data from: https://www.neighborhoodatlas.[facility].edu/. Last address used for calculation [address] [place] [address] [address] 02/05/2024 Sex and Gender Information [...] Entry Date Author No 09/25/2024 12:55 PM Allny Garcia RN documented in this encounter Plan of Treatment Upcoming Encounters Date Type Department Care Team (Latest Contact Info) Description 06/30/2025 10:00 AM EDT Office Visit Cardiology [address] [place] [address] Isaías Kinney MD [address] [place] [address] DX: Chronic diastolic heart failure 09/20/2025 8:15 AM EST Procedure Cardiology [address] [place] [address] Dx. Atherosclerotic heart disease of [place] coronary artery with other forms of angina pectoris 09/20/2025 9:00 AM EST Appointment Cardiology [address] [place] [address] Dx. Atherosclerotic heart disease of [place] coronary artery with other forms of angina pectoris 09/20/2025 9:45 AM EST Office Visit Cardiology [address] [place] [address] Nj Wei MD [address] [place] [address] Dx. Atherosclerotic heart disease of [place] coronary artery with other forms of angina pectoris documented as of this encounter Goals Goal Patient Goal Type Associated Problems Recent Progress Patient-Stated? Author Blood Pressure < 130/80 Blood Pressure 134/63( 025 3:00 PM EDT) No Lidia Lo RN documented as of this encounter Visit Diagnoses Not on filedocumented in this encounter Care Teams Microfilm Machine Operator Relationship Specialty Start Date End Date Samm Serrano MD PCP - General Family Medicine 05/30/12 Tom Gonzalez [address] [place] [address] Primary Staff Physician Cardiology 12/02/18 Andreas Pierre MD [address] [place] [address] Primary Staff Physician Cardiology 04/26/23 Virgil Carrillo MD [address] [place] [address] Primary Staff Physician Cardiology 10/29/23 Jethro Mendoza MD [address] [place] [address] Primary Staff Physician Cardiology 12/26/23 Isaías Kinney MD [address] [place] [address] Primary Staff Physician Cardiology 01/10/24 documented as of this encounter
--- OUTSIDE RECORDS SUMMARY | 2025-04-22 13:49 | XMS_ITS | Clinical Summary ---
Author Organization [facility] Address [address] [facility], [address] [place] [address] Care Team Providers Care Fat Purification Worker Name Role Phone Unavailable Primary Care Provider [...]
--- OUTSIDE RECORDS SUMMARY | 2025-04-22 13:49 | XMS_ITS | Encounter Summary ---
Author Organization [facility] Address [address] [place] [address] Care Team Providers Care Microfabrication Engineer Manager Name Role Phone Samm Serrano MD Primary Care Provider +-4 Tom Gonzalez Unavailable [phone] Andreas Pierre MD Unavailable Virgil Carrillo MD Unavailable Jethro Mendoza MD Unavailable Isaías Kinney MD Unavailable [phone] Source Comments In the event this information is protected by the Federal Confidentiality of Alcohol and Drug AbusePatient Records regulations: The Federal rules restrict any use of the information to criminally investigate or prosecute any alcohol or drug abuse patient.[facility] Reason for Visit * Reason Comments Appointment Encounter Details Date Type Department Care Team (Late st Contact Info) Description 12/22/2024 Telephone C[facility]bro[facility] [address] [place] [address] Jesusita EsparzaANAND.RESOURCE FORESTER [address] [place] [phone] Appointment Social History Tobacco Use Types Packs/Day Years Used Date Smoking Tobacco: Former Cigarettes 1 10 0 04/28/1972 - 04/28/1982 Pipe Passive Smoke Exposure: Never Smokeless Tobacco: Never Alcohol Use Standard Drinks/Week Comments Not Currently 0 (1 standard drink = 0.6 oz pur e alcohol) rarely [facility] Utilities Answer Date Recorded In [...] is lower risk 3 02/05/2024 Data from: https://www.neighborhoodatlas.medicine.[facility].edu/. Last address used for calculation [address] [place] [address] [address] 02/05/2024 Sex and Gender Information [...] , 1940). Yes Number to return call [phone] Reason for Call: Appointments [facility] [...] call back as soon as possible at [phone]. This encounter will also be forwarded to our front desk administrator as well. documented in this encounter Plan of Treatment Upcoming Encounters Date Type Department Care Team (Latest Contact Info) Description 06/30/2025 10:00 AM EDT Office Visit Cardiology [address] [place] [address] Isaías Kinney MD [address] [place] [address] DX: Chronic diastolic heart failure 09/20/2025 8:15 AM EST Procedure Cardiology [address] [place] [address] Dx. Atherosclerotic heart disease of [place] coronary artery with other forms of angina pectoris 09/20/2025 9:00 AM EST Appointment Cardiology [address] [place] [phone] Dx. Atherosclerotic heart disease of [place] coronary artery with other forms of angina pectoris 09/20/2025 9:45 AM EST Office Visit Cardiology [address] [place] [phone] Nj Wei MD [address] [place] [phone] Dx. Atherosclerotic heart disease of [place] coronary artery with other forms of angina pectoris documented as of this encounter Goals Goal Patient Goal Type Associated Problems Recent Progress Patient-Stated? Author Blood Pressure < 130/80 Blood Pressure 134/63( 025 3:00 PM EDT) Lidia Soto, ARIES documented as of this encounter Visit Diagnoses Not on filedocumented in this encounter Care Teams Microfabrication Engineer Manager Relationship Specialty Start Date End Date Samm Serrano MD PCP - General Family Medicine 05/30/12 Tom Gonzalez [address] [place] [address] Primary Staff Physician Cardiology 12/02/18 Andreas Pierre MD [address] [place] [address] Primary Staff Physician Cardiology 04/26/23 Virgil Carrillo MD [address] [place], [place] [phone] Primary Staff Physician Cardiology 10/29/23 Jethro Mendoza MD [address] [place], [place] [phone] Primary Staff Physician Cardiology 12/26/23 Isaías Kinney MD [address] [place], [place] [phone] Primary Staff Physician Cardiology 01/10/24 documented as of this encounter
--- OUTSIDE RECORDS SUMMARY | 2025-04-22 13:49 | XMS_ITS | Clinical Summary ---
Author Organization [facility] Address [address] [place] [address] Care Team Providers Care Property And Casualty Insurance Agent Name Role Phone Samm Serrano MD Primary Care Provider [phone] Allergies Active Allergy Reactions Criticality Noted Date [...] mcg by mouth in the morning. 5 Active metoprolol tartrate (Lopressor) 25 MG tablet [...] Description 03/25/2025 3:30 PM EDT Procedure Visit [facility] [address] [place] [address] Rohit Covington DPM Dystrophic nail (Primary Dx); Pain around toenail, right foot; Pain around toenail, left foot; Peripheral arterial disease 03/25/2025 Bamboo flowsheet [facility] [address] [place] [address] Rohit Covington DPM 03/25/2025 Travel from Last [...] Description 05/13/2025 3:35 PM EDT Office Visit [facility] [address] [place] [phone] Krystal Turner MD [address] [place] [address] 07/07/2025 1:00 PM EDT Procedure Visit [facility] [address] [place] [phone] Rohit Covington DPM [address] [place] [phone] Insurance MEDICARE Member Subscriber Plan / Payer (Ef fective 2011-Present) Name:José Miguel Antonio Jr. Member ID:[id number] Relation to Subscriber:Self Name:José Miguel Antonio Jr. Subscriber ID:[id number] Payer ID:STATE Group ID:Not on file Type:Medicare Address: [place] [id number] [place] [id number] [facility] Care Teams Property And Casualty Insurance Agent Relationship Specialty Start Date End Date Samm Serrano MD [address] [facility] [place] [address] PCP - General Family Medicine 03/24/25
--- OUTSIDE RECORDS SUMMARY | 2025-04-22 13:49 | XMS_ITS | Encounter Summary ---
Author Organization [facility] Address [address] [place] [address] Care Team Providers Care Fiberglass Pipe Covering Supervisor Name Role Phone Samm Serrano MD Primary Care Provider +-4 Tom Gonzalez Unavailable [phone] Andreas Pierre MD Unavailable Virgil Carrillo MD Unavailable Jethro Mendoza MD Unavailable Isaías Kinney MD Unavailable [phone] Source Comments In the event this information is protected by the Federal Confidentiality of Alcohol and Drug AbusePatient Records regulations: The Federal rules restrict any use of the information to criminally investigate or prosecute any alcohol or drug abuse patient.[facility] Encounter Details Date Type Department Care Team (Late st Contact Info) Description 09/28/2024 Patient Msg Radiation Oncology [address] [place] [address] [place] [address] Yung Andrade MD [address] [place] [address] Appointment Cancellation Request Social History Tobacco Use Types Packs/Day Years Used Date Smoking Tobacco: Former Cigarettes 1 10 0 04/28/1972 - 04/28/1982 Pipe Passive Smoke Exposure: Never Smokeless Tobacco: Never Alcohol Use Standard Drinks/Week Comments Not Currently 0 (1 standard drink = 0.6 oz pur e alcohol) rarely [facility] Utilities Answer Date [...] is lower risk 3 02/05/2024 Data from: https://www.neighborhoodatlas.medicine.[facility].edu/. Last address used for calculation [address] [place] [address] [address] 02/05/2024 Sex and Gender Information [...] 06/30/2025 10:00 AM EDT Office Visit Cardiology [address] [place] [address] Isaías Kinney MD [address] [place] [address] DX: Chronic diastolic heart failure 09/20/2025 8:15 AM EST Procedure Cardiology [address] [place] [address] Dx. Atherosclerotic heart disease of [place] coronary artery with other forms of angina pectoris 09/20/2025 9:00 AM EST Appointment Cardiology [address] [place] [address] Dx. Atherosclerotic heart disease of [place] coronary artery with other forms of angina pectoris 09/20/2025 9:45 AM EST Office Visit Cardiology [address] [place] [address] Nj Wei MD [address] [place] [address] Dx. Atherosclerotic heart disease of [place] coronary artery with other forms of angina pectoris documented as of this encounter Goals Goal Patient Goal Type Associated Problems Recent Progress Patient-Stated? Author Blood Pressure < 130/80 Blood Pressure 134/63( 025 3:00 PM EDT) No Lidia Lo RN documented as of this encounter Visit Diagnoses Not on filedocumented in this encounter Care Teams Fiberglass Pipe Covering Supervisor Relationship Specialty Start Date End Date Samm Serrano MD PCP - General Family Medicine 05/30/12 Tom Gonzalez [address] [place] [address] Primary Staff Physician Cardiology 12/02/18 Andreas Pierre MD [address] [place], [place] [phone] Primary Staff Physician Cardiology 04/26/23 Virgil Carrillo MD [address] [place] [phone] Primary Staff Physician Cardiology 10/29/23 Jethro Mendoza MD [address] [place] [address] Primary Staff Physician Cardiology 12/26/23 Isaías Kinney MD [address] [place] [address] Primary Staff Physician Cardiology 01/10/24 documented as of this encounter
--- OUTSIDE RECORDS SUMMARY | 2025-04-22 13:50 | XMS_ITS | Encounter Summary ---
Author Organization [facility] Address [address] [place] [address] Care Team Providers Care Dispute Specialist Name Role Phone Samm Serrano MD Primary Care Provider +-4 Tom Gonzalez Unavailable [phone] Andreas Pierre MD Unavailable Virgil Carrillo MD Unavailable Jethro Mendoza MD Unavailable Isaías Kinney MD Unavailable [phone] Source Comments In the event this information is protected by the Federal Confidentiality of Alcohol and Drug AbusePatient Records regulations: The Federal rules restrict any use of the information to criminally investigate or prosecute any alcohol or drug abuse patient.[facility] Encounter Details Date Type Department Care Team (Late st Contact Info) Description 01/29/2024 Get Medical Advice Cardiology [address] [place], [place] [phone] Isaías Kinney MD [address] [place] [address] Lab Results Social History Tobacco Use Types [...] lower risk 3 04/02/2023 Data from: https://www.neigh borhoodatlas.medicine.[facility]/. Last address used for calculation [...] 06/30/2025 10:00 AM EDT Office Visit Cardiology [address] [place] [address] Isaías Kinney MD [address] [place] [address] DX: Chronic diastolic heart failure 09/20/2025 8:15 AM EST Procedure Cardiology [address] [place] [address] Dx. Atherosclerotic heart disease of [place] coronary artery with other forms of angina pectoris 09/20/2025 9:00 AM EST Appointment Cardiology [address] [place] [address] Dx. Atherosclerotic heart disease of [place] coronary artery with other forms of angina pectoris 09/20/2025 9:45 AM EST Office Visit Cardiology [address] [place] [address] Nj Wei MD [address] [place] [address] Dx. Atherosclerotic heart disease of [place] coronary artery with other forms of angina pectoris documented as of this encounter Goals Goal Patient Goal Type Associated Problems Recent Progress Patient-Stated? Author Blood Pressure < 130/80 Blood Pressure 134/63( 025 3:00 PM EDT) No Lidia Lo RN documented as of this encounter Visit Diagnoses Not on filedocumented in this encounter Care Teams Dispute Specialist Relationship Specialty Start Date End Date Samm Serrano MD PCP - General Family Medicine 05/30/12 Tom Gonzalez [address] [place] [address] Primary Staff Physician Cardiology 12/02/18 Andreas Pierre MD [address] [place] [address] Primary Staff Physician Cardiology 04/26/23 Virgil Carrillo MD [address] [place] [address] Primary Staff Physician Cardiology 10/29/23 Jethro Mendoza MD [address] [place] [address] Primary Staff Physician Cardiology 12/26/23 Isaías Kinney MD [address] [place] [address] Primary Staff Physician Cardiology 01/10/24 documented as of this encounter
== END 2025-04-22 13:39 | disposition home or self-care (01) ==
LOC: RAD 13:38
PROVIDERS: PCP Family Medicine; Visit Provider Nurse Practitioner Family
DX: R60.9 Edema, unspecified (principal)
CPT/HCPCS: 71046

== ENCOUNTER 2025-05-12 13:58 | Outpatient (OUT) | payer MEDICARE, OTHER, SELFPAY ==
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
--- OUTSIDE RECORDS SUMMARY | 2025-05-12 14:01 | XMS_ITS | Encounter Summary ---
Author Organization [facility] Address [address] [place] [address] Care Team Providers Care Architectural Sales Consultant Name Role Phone Samm Serrano MD Primary Care Provider +-4 Tom Gonzalez Unavailable [phone] Andreas Pierre MD Unavailable Virgil Carrillo MD Unavailable Jethro Mendoza MD Unavailable Isaías Kinney MD Unavailable [phone] Source Comments In the event this information is protected by the Federal Confidentiality of Alcohol and Drug AbusePatient Records regulations: The Federal rules restrict any use of the information to criminally investigate or prosecute any alcohol or drug abuse patient.[facility] Encounter Details Date Type Department Care Team (Late st Contact Info) Description 11/28/2022 Patient Msg Cardiology [address] [place] [address] Provider, [facility] Appointment Cancellation Request Social History [...] N ot on file 10/01/2022 Data from: https://www.neighborhoodatlas.medicine.[facility]/. Last address used for calculation [address] [...] 11:00 AM Jia Carlson RN (Hist) * Are you blind or do you have serious difficulty seeing, even when wearing glasses? Answer Date of Assessment Author No 03/25/2019 11:00 AM Jia Carlson RN (Hist) * Do you have serious difficulty walking [...] 10:00 AM EDT Office Visit Cardiology [address] [place] [address] Isaías Kinney MD [address] [place], [place] [phone] DX: Chronic diastolic heart failure 09/20/2025 8:15 AM EST Procedure Cardiology [address] [place] [address] Dx. Atherosclerotic heart disease of [place] coronary artery with other forms of angina pectoris 09/20/2025 9:00 AM EST Appointment Cardiology [address] [place] [address] Dx. Atherosclerotic heart disease of [place] coronary artery with other forms of angina pectoris 09/20/2025 9:45 AM EST Office Visit Cardiology [address] [place] [address] Nj Wei MD [address] [place] [address] Dx. Atherosclerotic heart disease of [place] coronary artery with other forms of angina pectoris documented as of this encounter Visit Diagnoses Not on filedocumented in this encounter Care Teams Architectural Sales Consultant Relationship Specialty Start Date End Date Samm Serrano MD PCP - General Family Medicine 05/30/12 Tom Gonzalez [address] [place] [address] Primary Staff Physician Cardiology 12/02/18 Andreas Pierre MD [address] [facility] [place] [phone] Primary Staff Physician Cardiology 04/26/23 Virgil Carrillo MD [address] [place] [phone] Primary Staff Physician Cardiology 10/29/23 Jethro Mendoza MD [address] [place] [address] Primary Staff Physician Cardiology 12/26/23 Isaías Kinney MD [address] [place] [address] Primary Staff Physician Cardiology 01/10/24 documented as of this encounter
--- OUTSIDE RECORDS SUMMARY | 2025-05-12 14:01 | XMS_ITS | Encounter Summary ---
Author Organization [facility] Address [address] [place] [address] Care Team Providers Care School Aide Name Role Phone Samm Serrano MD Primary Care Provider +-4 Tom Gonzalez Unavailable [phone] Andreas Pierre MD Unavailable Virgil Carrillo MD Unavailable Jethro Mendoza MD Unavailable Isaías Kinney MD Unavailable [phone] Source Comments In the event this information is protected by the Federal Confidentiality of Alcohol and Drug AbusePatient Records regulations: The Federal rules restrict any use of the information to criminally investigate or prosecute any alcohol or drug abuse patient.[facility] Encounter Details Date Type Department Care Team (Late st Contact Info) Description 11/28/2022 Patient Msg Cardiology [address] [place] [address] Provider, [facility] Appointment Cancellation Request Social History [...] N ot on file 10/01/2022 Data from: https://www.neighborhoodatlas.medicine.[facility]/. Last address used for calculation [...] 10:00 AM EDT Office Visit Cardiology [address] [place] [address] Isaías Kinney MD [address] [place], [place] [phone] DX: Chronic diastolic heart failure 09/20/2025 8:15 AM EST Procedure Cardiology [address] [place] [address] Dx. Atherosclerotic heart disease of [place] coronary artery with other forms of angina pectoris 09/20/2025 9:00 AM EST Appointment Cardiology [address] [place] [address] Dx. Atherosclerotic heart disease of [place] coronary artery with other forms of angina pectoris 09/20/2025 9:45 AM EST Office Visit Cardiology [address] [place] [address] Nj Wei MD [address] [place] [address] Dx. Atherosclerotic heart disease of [place] coronary artery with other forms of angina pectoris documented as of this encounter Visit Diagnoses Not on filedocumented in this encounter Care Teams School Aide Relationship Specialty Start Date End Date Samm Serarno MD PCP - General Family Medicine 05/30/12 Tom Gonzalez [address] [place] [address] Primary Staff Physician Cardiology 12/02/18 Andreas Pierre MD [address] [facility] [place] [phone] Primary Staff Physician Cardiology 04/26/23 Virgil Carrillo MD [address] [place] [phone] Primary Staff Physician Cardiology 10/29/23 Jethro Mendoza MD [address] [place] [address] Primary Staff Physician Cardiology 12/26/23 Isaías Kinney MD [address] [place] [address] Primary Staff Physician Cardiology 01/10/24 documented as of this encounter
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
--- OUTSIDE RECORDS SUMMARY | 2025-05-12 14:01 | XMS_ITS | Encounter Summary ---
Author Organization [facility] Address [address] [place] [address] Care Team Providers Care Career Transition Specialist Name Role Phone Samm Serrano MD Primary Care Provider +4 Tom Gonzalez Unavailable [phone] Andreas Pierre MD Unavailable Virgil Carrillo MD Unavailable Jethro Mendoza MD Unavailable Isaías Kinney MD Unavailable [phone] Source Comments In the event this [...] Description 11/28/2022 Patient Msg Vascular Surg Dept [address] [place] [address] Tiarra Lopez APRN.SIDE GUIDER [address] [phone] Appointment Cancellation Request Social History Tobacco Use [...] on file 10/01/2022 Data from: https://www.neighborhoodatlas.medicine.[facility].edu/. Last address used for calculation [address] [...] Author No 03/25/2019 11:00 AM EDJia Carlisle (Hist) RN * Do you have difficulty dressing [...] Entry Date Author No 03/25/2019 11:00 AM EDJia Carlisle RN (Hist) documented in this encounter Plan of Treatment Upcoming Encounters Date Type Department Care Team (Latest Contact Info) Description 06/30/2025 10:00 AM EDT Office Visit Cardiology [address] [place] [address] Isaías Kinney MD [address] [phone] DX: Chronic diastolic heart failure 09/20/2025 8:15 AM EST Procedure Cardiology [address] [place] [address] Dx. Atherosclerotic heart disease of [place] coronary artery with other forms of angina pectoris 09/20/2025 9:00 AM EST Appointment Cardiology [address] [place] [address] Dx. Atherosclerotic heart disease of [place] coronary artery with other forms of angina pectoris 09/20/2025 9:45 AM EST Office Visit Cardiology [address] [place] [address] Nj Wei MD [address] [place] [address] Dx. Atherosclerotic heart disease of [place] coronary artery with other forms of angina pectoris documented as of this encounter Visit Diagnoses Not on filedocumented in this encounter Care Teams Career Transition Specialist Relationship Specialty Start Date End Date Samm Serrano MD PCP - General Family Medicine 05/30/12 Tom Gonzalez [address] [facility] [place] [address] Primary Staff Physician Cardiology 12/02/18 Andreas Pierre MD [address] [facility] [place] [address] Primary Staff Physician Cardiology 04/26/23 Virgil Carrillo MD [address] [place] [address] Primary Staff Physician Cardiology 10/29/23 Jethro Mendoza MD [address] [facility] [place] [address] Primary Staff Physician Cardiology 12/26/23 Isaías Kinney MD [address] [place] [address] Primary Staff Physician Cardiology 01/10/24 documented as of this encounter
--- OUTSIDE RECORDS SUMMARY | 2025-05-12 14:01 | XMS_ITS | Encounter Summary ---
Author Organization [facility] Address [address] [place] [address] Care Team Providers Care Reticle Printer Name Role Phone Samm Serrano MD Primary Care Provider +-4 Tom Gonzalez Unavailable [phone] Andreas Pierre MD Unavailable Virgil Carrillo MD Unavailable Jethro Mendoza MD Unavailable Isaías Kinney MD Unavailable [phone] Source Comments In the event this information is protected by the Federal Confidentiality of Alcohol and Drug AbusePatient Records regulations: The Federal rules restrict any use of the information to criminally investigate or prosecute any alcohol or drug abuse patient.[facility] Encounter Details Date Type Department Care Team (Late st Contact Info) Description 09/01/2024 Patient Msg Cardiology [address] [place] [address] Isaías Kinney MD [address] [place] [address] Spironolactone Social History Tobacco Use Types Packs/Day [...] any time in the past 12 m [facility], were you homeless or living in a custodial (including now)? Yes 07/22/2024 Area Deprivation Index Answer Date Rich rded National Score (1-100), lower number is lower ri sk 52 02/05/2024 State Score (1-10), lower number is lower risk 3 02/05/2024 Data from: https://www.neighborhoodatlas.medicine.[facility].edu/. Last address used for calculation [address] 02/05/2024 Sex and Gender [...] 06/30/2025 10:00 AM EDT Office Visit Cardiology [address] [place] [address] Isaías Kinney MD [address] [place] [address] DX: Chronic diastolic heart failure 09/20/2025 8:15 AM EST Procedure Cardiology [address] [place] [address] Dx. Atherosclerotic heart disease of [place] coronary artery with other forms of angina pectoris 09/20/2025 9:00 AM EST Appointment Cardiology [address] [place] [address] Dx. Atherosclerotic heart disease of [place] coronary artery with other forms of angina pectoris 09/20/2025 9:45 AM EST Office Visit Cardiology [address] [place] [address] Nj Wei MD [address] [place] [address] Dx. Atherosclerotic heart disease of [place] coronary artery with other forms of angina pectoris documented as of this encounter Goals Goal Patient Goal Type Associated Problems Recent Progress Patient-Stated? Author Blood Pressure < 130/80 Blood Pressure 134/63( 025 3:00 PM EDT) No Lidia Lo, ARIES documented as of this encounter Visit Diagnoses Not on filedocumented in this encounter Care Teams Reticle Printer Relationship Specialty Start Date End Date Samm Serrano MD PCP - General Family Medicine 05/30/12 Tom Gonzalez [address] [place] [address] Primary Staff Physician Cardiology 12/02/18 Andreas Pierre MD [address] [place] [address] Primary Staff Physician Cardiology 04/26/23 Virgil Carrillo MD [address] [place] [address] Primary Staff Physician Cardiology 10/29/23 Jethro Mendoza MD [address] [place] [address] Primary Staff Physician Cardiology 12/26/23 Isaías Kinney MD [address] [place] [address] Primary Staff Physician Cardiology 01/10/24 documented as of this encounter
--- OUTSIDE RECORDS SUMMARY | 2025-05-12 14:01 | XMS_ITS | Encounter Summary ---
Author Organization [facility] Address [address] [place] [address] Care Team Providers Care Bundle Collector Name Role Phone Samm Serrano MD Primary Care Provider +4 Tom Gonzalez Unavailable [phone] Andreas Pierre MD Unavailable Virgil Carrillo MD Unavailable Jethro Mendoza MD Unavailable Isaías Kinney MD Unavailable [phone] Source Comments In the event this information is protected by the Federal Confidentiality of Alcohol and Drug AbusePatient Records regulations: The Federal rules restrict any use of the information to criminally investigate or prosecute any alcohol or drug abuse patient.[facility] Encounter Details Date Type Department Care Team (Late st Contact Info) Description 08/23/2022 Patient Msg Biomedical [place] [phone] Provider, [facility] Research Social History Tobacco Use Types Packs/Day [...] on file 04/26/2022 Data from: https://www.neighborhoodatlas.medicine.[facility]/. Last address used for calculation 9[address] [...] 10:00 AM EDT Office Visit Cardiology [address] [place] [address] Isaías Kinney MD [address] [place] [address] DX: Chronic diastolic heart failure 09/20/2025 8:15 AM EST Procedure Cardiology [address] [place] [address] Dx. Atherosclerotic heart disease of [place] coronary artery with other forms of angina pectoris 09/20/2025 9:00 AM EST Appointment Cardiology [address] [place] [address] Dx. Atherosclerotic heart disease of [place] coronary artery with other forms of angina pectoris 09/20/2025 9:45 AM EST Office Visit Cardiology [address] [place] [address] Nj Wei MD [address] [place] [address] Dx. Atherosclerotic heart disease of [place] coronary artery with other forms of angina pectoris documented as of this encounter Visit Diagnoses Not on filedocumented in this encounter Care Teams Bundle Collector Relationship Specialty Start Date End Date Samm Serrano MD PCP - General Family Medicine 05/30/12 Tom Gonzalez [address] [place] [address] Primary Staff Physician Cardiology 12/02/18 Andreas Pierre MD [address] [place] [address] Primary Staff Physician Cardiology 04/26/23 Virgil Carrillo MD [address] [place] [address] Primary Staff Physician Cardiology 10/29/23 Jethro Mendoza MD [address] [place] [address] Primary Staff Physician Cardiology 12/26/23 Isaías Kinney MD [address] [place] [address] Primary Staff Physician Cardiology 01/10/24 documented as of this encounter
--- OUTSIDE RECORDS SUMMARY | 2025-05-12 14:01 | XMS_ITS | Encounter Summary ---
Author Organization [facility] Address [address] [place] [address] Care Team Providers Care Director Of Sales Marketing Name Role Phone Samm Serrano MD Primary Care Provider +-4 Tom Gonzalez Unavailable [phone] Andreas Pierre MD Unavailable Virgil Carrillo MD Unavailable Jethro Mendoza MD Unavailable Isaías Kinney MD Unavailable [phone] Source Comments In the event this information is protected by the Federal Confidentiality of Alcohol and Drug AbusePatient Records regulations: The Federal rules restrict any use of the information to criminally investigate or prosecute any alcohol or drug abuse patient.[facility] Encounter Details Date Type Department Care Team (Late st Contact Info) Description 07/16/2022 Get Medical Advice Cardiology [address] [phone] Andreas Pierre MD [address] [place] [address] medication question Social History Tobacco Use Types [...] N ot on file 04/26/2022 Data from: https://www.neighborhoodatlas.medicine.[facility].edu/. Last address used for calculation [address] [...] 06/30/2025 10:00 AM EDT Office Visit Cardiology [address] [place] [address] Isaías Kinney MD [address] [phone] DX: Chronic diastolic heart failure 09/20/2025 8:15 AM EST Procedure Cardiology [address] [place] [address] Dx. Atherosclerotic heart disease of [place] coronary artery with other forms of angina pectoris 09/20/2025 9:00 AM EST Appointment Cardiology [address] [place] [address] Dx. Atherosclerotic heart disease of [place] coronary artery with other forms of angina pectoris 09/20/2025 9:45 AM EST Office Visit Cardiology [address] [place] [address] Nj Wei MD [address] [place] [address] Dx. Atherosclerotic heart disease of [place] coronary artery with other forms of angina pectoris documented as of this encounter Visit Diagnoses Not on filedocumented in this encounter Care Teams Director Of Sales Marketing Relationship Specialty Start Date End Date Samm Serrano MD PCP - General Family Medicine 05/30/12 Tom Gonzalez [address] [place] [address] Primary Staff Physician Cardiology 12/02/18 Andreas Pierre MD [address] [place] [address] Primary Staff Physician Cardiology 04/26/23 Virgil Carrillo MD [address] [place] [address] Primary Staff Physician Cardiology 10/29/23 Jethro Mendoza MD [address] [place] [address] Primary Staff Physician Cardiology 12/26/23 Isaías Kinney MD [address] [place] [address] Primary Staff Physician Cardiology 01/10/24 documented as of this encounter
--- OUTSIDE RECORDS SUMMARY | 2025-05-12 14:01 | XMS_ITS | Encounter Summary ---
Author Organization [facility] Address [address] [place] [address] Care Team Providers Care Neuropsychiatric Aide Name Role Phone Samm Serrano MD Primary Care Provider +4 Tom Gonzalez Unavailable [phone] Andreas Pierre MD Unavailable Virgil Carrillo MD Unavailable Jethro Mendoza MD Unavailable Isaías Kinney MD Unavailable [phone] Source Comments In the event this information is protected by the Federal Confidentiality of Alcohol and Drug AbusePatient Records regulations: The Federal rules restrict any use of the information to criminally investigate or prosecute any alcohol or drug abuse patient.[facility] Encounter Details Date Type Department Care Team (Late st Contact Info) Description 01/22/2022 Get Medical Advice Radiation Oncology [address] [place] [address] [place] [address] Yung Andrade MD [address] [place] [address] Medication Question (Not Renewal) Social History Tobacco [...] on file 08/21/2020 Data from: https://www.neighborhoodatlas.medicine.[facility].edu/. Last address used for calculation Not on [...] 03/25/2019 11:00 AM EDT Jia Rios (Hist), RN * Are you blind or do [...] EDT Office Visit Cardiology [address] [phone] Isaías Kinney MD [address] [phone] DX: Chronic diastolic heart failure 09/20/2025 8:15 AM EST Procedure Cardiology [address] [place] [address] Dx. Atherosclerotic heart disease of [place] coronary artery with other forms of angina pectoris 09/20/2025 9:00 AM EST Appointment Cardiology [address] [place] [address] Dx. Atherosclerotic heart disease of [place] coronary artery with other forms of angina pectoris 09/20/2025 9:45 AM EST Office Visit Cardiology [address] [place] [address] Nj Wei MD [address] [phone] Dx. Atherosclerotic heart disease of [place] coronary artery with other forms of angina pectoris documented as of this encounter Visit Diagnoses Not on filedocumented in this encounter Care Teams Neuropsychiatric Aide Relationship Specialty Start Date End Date Samm Serraon MD PCP - General Family Medicine 05/30/12 Tom Gonzalez [address] [place] [address] Primary Staff Physician Cardiology 12/02/18 Andreas Pierre MD [address] [place] [address] Primary Staff Physician Cardiology 04/26/23 Virgil Carrillo MD [address] [place] [address] Primary Staff Physician Cardiology 10/29/23 Jethro Mendoza MD [address] [place] [address] Primary Staff Physician Cardiology 12/26/23 Isaías Kinney MD [address] [place] [address] Primary Staff Physician Cardiology 01/10/24 documented as of this encounter
--- OUTSIDE RECORDS SUMMARY | 2025-05-12 14:01 | XMS_ITS | Encounter Summary ---
Author Organization [facility] Address [address] [place] [address] Care Team Providers Care Garment Mender Name Role Phone Samm Serrano MD Primary Care Provider +4 Tom Gonzalez Unavailable [phone] Andreas Pierre MD Unavailable Virgil Carrillo MD Unavailable Jethro Mendoza MD Unavailable Isaías Kinney MD Unavailable [phone] Source Comments In the event this information is protected by the Federal Confidentiality of Alcohol and Drug AbusePatient Records regulations: The Federal rules restrict any use of the information to criminally investigate or prosecute any alcohol or drug abuse patient.[facility] Encounter Details Date Type Department Care Team (Late st Contact Info) Description 09/03/2022 Letters (in) Vascular Surg Dept [address] [place] [address] John Jefferson MD [address] [place] [address] Social History Tobacco Use Types Packs/Day Years [...] N ot on file 04/26/2022 Data from: https://www.neighborhoodatlas.medicine.[facility].edu/. Last [...] 03/25/2019 11:00 AM Jia Carlson (Radha)ARIES * Are you blind or do [...] Carlson RN (Hist) documented in this encounter Miscellaneous Notes * Letter - John Jefferson MD - 09/03/2022 12:00 AM EST John Jefferson MD Maintenance Tech Department of Vascular Surgery [address] [place] [address] Office: [phone] Appointments: [facility]/ [phone] Fax: [phone] December 19, 2022 José Miguel Collins [address] [address] NAME: [facility] NO: [id number] : 1940 DATE OF SERVICE: 09/03/2022 Dear Mr. Antonio, I was just writing to see how [...] Jefferson M.D (Signed electronically to expedite mailing) SUMEET/jaden . SUMEET/089 Audio #: [id number] Date Dictated: 12/19/2022 11:16:33 Date Typed: 12/21/2022 08:54:29 Date Revised: documented in this encounter Plan of Treatment Upcoming Encounters Date Type Department Care Team (Latest Contact Info) Description 06/30/2025 10:00 AM EDT Office Visit Cardiology [address] [place] [address] Isaías Kinney MD [address] [place] [address] DX: Chronic diastolic heart failure 09/20/2025 8:15 AM EST Procedure Cardiology [address] [place] [address] Dx. Atherosclerotic heart disease of [place] coronary artery with other forms of angina pectoris 09/20/2025 9:00 AM EST Appointment Cardiology [address] [place], [place] [phone] Dx. Atherosclerotic heart disease of [place] coronary artery with other forms of angina pectoris 09/20/2025 9:45 AM EST Office Visit Cardiology [address] [place] [address] Nj Wei MD [address] [phone] Dx. Atherosclerotic heart disease of [place] coronary artery with other forms of angina pectoris documented as of this encounter Visit Diagnoses Not on filedocumented in this encounter Care Teams Garment Mender Relationship Specialty Start Date End Date Samm Serrano MD PCP - General Family Medicine 05/30/12 Tom Gonzalez [address] [place] [address] Primary Staff Physician Cardiology 12/02/18 Andreas Pierre MD [address] [place] [address] Primary Staff Physician Cardiology 04/26/23 Virgil Carrillo MD [address] [place], [place] [phone] Primary Staff Physician Cardiology 10/29/23 Jethro Mendoza MD [address] [place] [address] Primary Staff Physician Cardiology 12/26/23 Isaías Kinney MD [address] [place] [address] Primary Staff Physician Cardiology 01/10/24 documented as of this encounter
--- OUTSIDE RECORDS SUMMARY | 2025-05-12 14:01 | XMS_ITS | Encounter Summary ---
Author Organization [facility] Address [address] [place] [address] Care Team Providers Care Launchman Name Role Phone Samm Serrano MD Primary Care Provider [phone] Inocencio Falk DO Unavailable [phone] Tom Gonzalez Unavailable [phone] Andreas Pierre MD Unavailable Virgil Carrillo MD Unavailable Jethro Mendoza MD Unavailable Isaías Kinney MD Unavailable [phone] Source Comments In the event this information is protected by the Federal Confidentiality of Alcohol and Drug AbusePatient Records regulations: The Federal rules restrict any use of the information to criminally investigate or prosecute any alcohol or drug abuse patient.[facility] Encounter Details Date Type Department Care Team (Late st Contact Info) Description 11/21/2012 Patient Msg Medical Records [address] [place] [address] Provider, [facility] Appointment Cancellation Request Social History [...] 10:00 AM EDT Office Visit Cardiology [address] [place] [address] Isaías Kinney MD [address] [place] [address] DX: Chronic diastolic heart failure 09/20/2025 8:15 AM EST Procedure Cardiology [address] [place] [address] Dx. Atherosclerotic heart disease of [place] coronary artery with other forms of angina pectoris 09/20/2025 9:00 AM EST Appointment Cardiology [address] [place] [address] Dx. Atherosclerotic heart disease of [place] coronary artery with other forms of angina pectoris 09/20/2025 9:45 AM EST Office Visit Cardiology [address] [place] [address] Nj Wei MD [address] [place] [address] Dx. Atherosclerotic heart disease of [place] coronary artery with other forms of angina pectoris documented as of this encounter Visit Diagnoses Not on filedocumented in this encounter Care Teams Launchman Relationship Specialty Start Date End Date Samm Serrano MD PCP - General Family Medicine 05/30/12 Inocencio Falk DO [address] [place] [address] Primary Staff Physician Cardiology 12/15/14 Tom Gonzalez [address] [place] [address] Primary Staff Physician Cardiology 12/02/18 Andreas Pierre MD [address] [facility] [place] [address] Primary Staff Physician Cardiology 04/26/23 Virgil Carrillo MD [address] [place] [address] Primary Staff Physician Cardiology 10/29/23 Jethro Mendoza MD [address] [place] [address] Primary Staff Physician Cardiology 12/26/23 Isaías Kinney MD [address] [place] [address] Primary Staff Physician Cardiology 01/10/24 documented as of this encounter
--- OUTSIDE RECORDS SUMMARY | 2025-05-12 14:01 | XMS_ITS | Encounter Summary ---
Author Organization [facility] Address [address] [place] [address] Care Team Providers Care Smoke Jumper Name Role Phone Samm Serrano MD Primary Care Provider +4 Tom Gonzalez Unavailable [phone] Andreas Pierre MD Unavailable Virgil Carrillo MD Unavailable Jethro Mendoza MD Unavailable Isaías Kinney MD Unavailable [phone] Source Comments In the event this information is protected by the Federal Confidentiality of Alcohol and Drug AbusePatient Records regulations: The Federal rules restrict any use of the information to criminally investigate or prosecute any alcohol or drug abuse patient.[facility] Encounter Details Date Type Department Care Team (Late st Contact Info) Description 01/19/2022 Get Medical Advice Radiation Oncology [address] [place] [address] [place] [address] Yung Andrade MD [address] [facility] [place] [address] Medication Question (Not Renewal) Social History Tobacco [...] N ot on file 08/21/2020 Data from: https://www.neighborhoodatlas.medicine.[facility].edu/. Last address used for calculation Not [...] 10:00 AM EDT Office Visit Cardiology [address] [phone] Isaías Kinney MD [address] [phone] DX: Chronic diastolic heart failure 09/20/2025 8:15 AM EST Procedure Cardiology [address] [place] [address] Dx. Atherosclerotic heart disease of [place] coronary artery with other forms of angina pectoris 09/20/2025 9:00 AM EST Appointment Cardiology [address] [place] [address] Dx. Atherosclerotic heart disease of [place] coronary artery with other forms of angina pectoris 09/20/2025 9:45 AM EST Office Visit Cardiology [address] [place] [address] Nj Wei MD [address] [phone] Dx. Atherosclerotic heart disease of [place] coronary artery with other forms of angina pectoris documented as of this encounter Visit Diagnoses Not on filedocumented in this encounter Care Teams Smoke Jumper Relationship Specialty Start Date End Date Samm Serrano MD PCP - General Family Medicine 05/30/12 Tom Gonzalez [address] [place] [address] Primary Staff Physician Cardiology 12/02/18 Andreas Pierre MD [address] [place] [address] Primary Staff Physician Cardiology 04/26/23 Virgil Carrillo MD [address] [place] [address] Primary Staff Physician Cardiology 10/29/23 Jethro Mendoza MD [address] [place] [address] Primary Staff Physician Cardiology 12/26/23 Isaías Kinney MD [address] [place] [address] Primary Staff Physician Cardiology 01/10/24 documented as of this encounter
--- OUTSIDE RECORDS SUMMARY | 2025-05-12 14:01 | XMS_ITS | Encounter Summary ---
Author Organization [facility] Address [address] [place] [address] Care Team Providers Care Hand Bindery Assembly Worker Name Role Phone Samm Serrano MD Primary Care Provider +-4 Tom Gonzalez Unavailable [phone] Andreas Pierre MD Unavailable Virgil Carrillo MD Unavailable Jethro Mendoza MD Unavailable Isaías Kinney MD Unavailable [phone] Source Comments In the event this information is protected by the Federal Confidentiality of Alcohol and Drug AbusePatient Records regulations: The Federal rules restrict any use of the information to criminally investigate or prosecute any alcohol or drug abuse patient.[facility] Encounter Details Date Type Department Care Team (Late st Contact Info) Description 11/28/2022 Patient Msg Cardiology [address] [place] [address] Provider, Ccf Appointment Cancellation Request Social History [...] N ot on file 10/01/2022 Data from: https://www.neighborhoodatlas.medicine.[facility]/. Last address used [...] 10:00 AM EDT Office Visit Cardiology [address] [place] [address] Isaías Kinney MD [address] [place], [place] [phone] DX: Chronic diastolic heart failure 09/20/2025 8:15 AM EST Procedure Cardiology [address] [place] [address] Dx. Atherosclerotic heart disease of [place] coronary artery with other forms of angina pectoris 09/20/2025 9:00 AM EST Appointment Cardiology [address] [place] [address] Dx. Atherosclerotic heart disease of [place] coronary artery with other forms of angina pectoris 09/20/2025 9:45 AM EST Office Visit Cardiology [address] [place] [address] Nj Wei MD [address] [place] [address] Dx. Atherosclerotic heart disease of [place] coronary artery with other forms of angina pectoris documented as of this encounter Visit Diagnoses Not on filedocumented in this encounter Care Teams Hand Bindery Assembly Worker Relationship Specialty Start Date End Date Samm Serrano MD PCP - General Family Medicine 05/30/12 Tom Gonzalez [address] [place] [address] Primary Staff Physician Cardiology 12/02/18 Andreas [facility] MD [address] [facility] [place] [phone] Primary Staff Physician Cardiology 04/26/23 Virgil Carrillo MD [address] [place] [phone] Primary Staff Physician Cardiology 10/29/23 Jethro Mendoza MD [address] [place] [address] Primary Staff Physician Cardiology 12/26/23 Isaías Kinney MD [address] [place] [address] Primary Staff Physician Cardiology 01/10/24 documented as of this encounter
--- OUTSIDE RECORDS SUMMARY | 2025-05-12 14:02 | XMS_ITS ---
Author Organization [facility] Address [address] [place] [address] Care Team Providers Care Green Chainer Name Role Phone Samm Serrano MD Primary Care Provider [phone] Active Problems Problem Noted Date Diagnosed Date [...] disease invo lving coronary bypass graft of [place] heart 05/26/2022 Chronic systolic heart failure 05/26/2022 NSVT (nonsustained ventricular tachycardia) 05/17 [place] (myocardial infarction) 05/26/2022 Mitral valve insufficiency 05/26/2022 [...] get clearance to take Viagra through his project geologist. Both and patient are where the most contact project geologist prior to taking the medication. Viagra 1/2 [...] not to proceed. ==== 07/17/2019 ==== HIghest [place] Grade: 3+ 4 equal 7 # of [...] sexual function is: cannot sustain erection Comorbidities: cardiac---OK, Has AICD ==== 07/17/2019 ==== patient follow-up outside urologist as well as outside radiation oncologist. 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 PSA has fluctuate anywhere from 5 to approximately 13. Most recent PSA that I have of record is 12.3 in October 2014. Subsequent biopsy December 2018 2 course [place] 3 + 4 equal 7. Right side. [...] Referral to be made -per patient choice [facility] radiation oncology. 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 Plan: Aggressive risk factor management. See CAD section. Sweating 11/17/2012 10/10/2023 Overview (10/10/2023): History: Developed cold sweat ~ 1100 at rest during hinduism on 11/16. There was no nausea, chest pain, jaw pain, shortness of breath, or lightheadedness. This is similar to his symptoms when patient had STEMI in 04/2012. Patient presented to [facility] at 1200. EKG showed q waves in III, aVF; ST depression in I, aVL; ST elevation V3, V4, V5. On arrival to [facility] his EKG showed resolution of ST elevation in V4 and V5. His troponin 0.367 at OSH (? Troponin I); but has been negative at [facility] Main campus. Assessment: Possible atypical manifestations type II demand ischemia in setting of recent dehydration from profuse diarrhea or residual symptoms of recent illness. Cold sweat resolved after arrival. Plan: Trend cardiac enzymes, monitor clinical symptoms, and serial EKG's as needed. If continue to worsen clinically, would proceed to [facility]. S/P CABG (coronary artery bypass graft) 06/17/20 [...] (03/15/2025 4:04 PM EDT): Blood culture from [facility] reported Stenotrophomonas maltophilia Per ID blood cultures likely contaminant and antibiotics being discontinued Assessment & Plan (03/14/2025 11:12 AM EDT): Blood culture from [facility] reported Stenotrophomonas maltophilia Per ID blood cultures likely contaminant and antibiotics being discontinued Assessment & Plan (03/13/2025 12:15 PM EDT): Blood culture from [facility] reported Stenotrophomonas maltophilia Per ID blood cultures likely contaminant and antibiotics being discontinued Assessment & Plan (03/12/2025 4:29 PM EDT): Blood culture from [facility] reported Stenotrophomonas maltophilia Per ID blood cultures likely contaminant and antibiotics being discontinued Assessment & Plan (03/11/2025 2:32 PM EDT): Blood culture from [facility] reported Stenotrophomonas maltophilia Per ID blood cultures likely contaminant and antibiotics being discontinued Assessment & Plan (03/10/2025 3:11 PM EDT): Blood culture from [facility] reported Stenotrophomonas maltophilia Per ID blood cultures likely contaminant and antibiotics being discontinued Assessment & Plan (03/09/2025 1:05 PM EDT): Blood culture from [facility] reported Stenotrophomonas maltophilia Per ID [...] likely will need right heart cath with [place] catheter as well as inotropic agent based [...]
--- OUTSIDE RECORDS SUMMARY | 2025-05-12 14:02 | XMS_ITS | Encounter Summary ---
Author Organization [facility] Address [address] [place] [address] Care Team Providers Care Mason Foreman/Superintendant Name Role Phone Samm Serrano MD Primary Care Provider +4 Tom Gonzalez Unavailable [phone] Andreas Pierre MD Unavailable Virgil Carrillo MD Unavailable Jethro Mendoza MD Unavailable Isaías Kinney MD Unavailable [phone] Source Comments In the event this information is protected by the Federal Confidentiality of Alcohol and Drug AbusePatient Records regulations: The Federal rules restrict any use of the information to criminally investigate or prosecute any alcohol or drug abuse patient.[facility] Encounter Details Date Type Department Care Team (Late st Contact Info) Description 11/28/2022 Patient Msg Vascular Surg Dept [address] [place] [address] John Jefferson MD [address] [place] [address] Appointment Cancellation Request Social History [...] N ot on file 10/01/2022 Data from: https://www.neighborhoodatlas.medicine.[facility].edu/. Last address [...] 10:00 AM EDT Office Visit Cardiology [address] [place] [address] Isaías Kinney MD [address] [place] [phone] DX: Chronic diastolic heart failure 09/20/2025 8:15 AM EST Procedure Cardiology [address] [place] [address] Dx. Atherosclerotic heart disease of [place] coronary artery with other forms of angina pectoris 09/20/2025 9:00 AM EST Appointment Cardiology [address] [place] [address] Dx. Atherosclerotic heart disease of [place] coronary artery with other forms of angina pectoris 09/20/2025 9:45 AM EST Office Visit Cardiology [address] [place] [address] Nj Wei MD [address] [place] [address] Dx. Atherosclerotic heart disease of [place] coronary artery with other forms of angina pectoris documented as of this encounter Visit Diagnoses Not on filedocumented in this encounter Care Teams Mason Foreman/Superintendant Relationship Specialty Start Date End Date Samm Serrano MD PCP - General Family Medicine 05/30/12 Tom Gonzalez [address] [facility] [place] [address] Primary Staff Physician Cardiology 12/02/18 Andreas Pierre MD [address] [place] [address] Primary Staff Physician Cardiology 04/26/23 Virgil Carrillo MD [address] [place] [address] Primary Staff Physician Cardiology 10/29/23 Jethro Mendoza MD [address] [place] [address] Primary Staff Physician Cardiology 12/26/23 Isaías Kinney MD [address] [place] [address] Primary Staff Physician Cardiology 01/10/24 documented as of this encounter
--- OUTSIDE RECORDS SUMMARY | 2025-05-12 14:02 | XMS_ITS | Encounter Summary ---
Author Organization [facility] Address [address] [place] [address] Care Team Providers Care Building Cleaner Name Role Phone Samm Serrano MD Primary Care Provider +4 Tom Gonzalez Unavailable [phone] Andreas Pierre MD Unavailable Virgil Carrillo MD Unavailable Jethro Mendoza MD Unavailable Isaías Kinney MD Unavailable [phone] Source Comments In the event this information is protected by the Federal Confidentiality of Alcohol and Drug AbusePatient Records regulations: The Federal rules restrict any use of the information to criminally investigate or prosecute any alcohol or drug abuse patient.[facility] Encounter Details Date Type Department Care Team (Late st Contact Info) Description 11/28/2022 Patient Msg Vascular Surg Dept [address] [place] [address] Tiarra Lopez APRN.[employer]ER [address] [place] [phone] Appointment Cancellation Request Social History Tobacco Use [...] N ot on file 10/01/2022 Data from: https://www.neighborhoodatlas.medicine.[facility].edu/. Last address used for calculation [address] [...] 10:00 AM EDT Office Visit Cardiology [address] [place] [address] Isaías Kinney MD [address] [place] [phone] DX: Chronic diastolic heart failure 09/20/2025 8:15 AM EST Procedure Cardiology [address] [place] [address] Dx. Atherosclerotic heart disease of [place] coronary artery with other forms of angina pectoris 09/20/2025 9:00 AM EST Appointment Cardiology [address] [place] [address] Dx. Atherosclerotic heart disease of [place] coronary artery with other forms of angina pectoris 09/20/2025 9:45 AM EST Office Visit Cardiology [address] [place] [address] Nj Wei MD [address] [place] [address] Dx. Atherosclerotic heart disease of [place] coronary artery with other forms of angina pectoris documented as of this encounter Visit Diagnoses Not on filedocumented in this encounter Care Teams Building Cleaner Relationship Specialty Start Date End Date Samm Serrano MD PCP - General Family Medicine 05/30/12 Tom Gonzalez [address] [address] Primary Staff Physician Cardiology 12/02/18 Andreas Pierre MD [address] [facility] [place] [address] Primary Staff Physician Cardiology 04/26/23 Virgil Carrillo MD [address] [place] [address] Primary Staff Physician Cardiology 10/29/23 Jethro Mendoza MD [address] [facility] [place] [address] Primary Staff Physician Cardiology 12/26/23 Isaías Kinney MD [address] [place] [address] Primary Staff Physician Cardiology 01/10/24 documented as of this encounter
--- OUTSIDE RECORDS SUMMARY | 2025-05-12 14:02 | XMS_ITS | Encounter Summary ---
Author Organization [facility] Address [address] [place] [address] Care Team Providers Care Putty And Patch Worker Name Role Phone Samm Serrano MD Primary Care Provider +4 Tom Gonzalez Unavailable [phone] Andreas Pierre MD Unavailable Virgil Carrillo MD Unavailable Jethro Mendoza MD Unavailable Isaías Kinney MD Unavailable [phone] Source Comments In the event this information is protected by the Federal Confidentiality of Alcohol and Drug AbusePatient Records regulations: The Federal rules restrict any use of the information to criminally investigate or prosecute any alcohol or drug abuse patient.[facility] Encounter Details Date Type Department Care Team (Late st Contact Info) Description 11/28/2022 Patient Msg Vascular Surg Dept [address] [place] [address] Tiarra Lopez APRN.GUYLINE OPERATOR [address] [place] [phone] Appointment Cancellation Request Social History Tobacco Use [...] file 10/01/2022 Data from: https://www.neighborhoodatlas.medicine.[facility].edu/. Last address used for calculation [address] [...] 10:00 AM EDT Office Visit Cardiology [address] [place] [address] Isaías Kinney MD [address] [place] [phone] DX: Chronic diastolic heart failure 09/20/2025 8:15 AM EST Procedure Cardiology [address] [place] [address] Dx. Atherosclerotic heart disease of [place] coronary artery with other forms of angina pectoris 09/20/2025 9:00 AM EST Appointment Cardiology [address] [place] [address] Dx. Atherosclerotic heart disease of [place] coronary artery with other forms of angina pectoris 09/20/2025 9:45 AM EST Office Visit Cardiology [address] [place] [address] Nj Wei MD [address] [place] [address] Dx. Atherosclerotic heart disease of [place] coronary artery with other forms of angina pectoris documented as of this encounter Visit Diagnoses Not on filedocumented in this encounter Care Teams Putty And Patch Worker Relationship Specialty Start Date End Date Samm Serrano MD PCP - General Family Medicine 05/30/12 Tom Gonzalez [address] [facility] [place] [address] Primary Staff Physician Cardiology 12/02/18 Andreas Pierre MD [address] [facility] [place] [address] Primary Staff Physician Cardiology 04/26/23 Virgil Carrillo MD [address] [place] [address] Primary Staff Physician Cardiology 10/29/23 Jethro Mendoza MD [address] [facility] [place] [address] Primary Staff Physician Cardiology 12/26/23 Isaías Kinney MD [address] [place] [address] Primary Staff Physician Cardiology 01/10/24 documented as of this encounter
--- OUTSIDE RECORDS SUMMARY | 2025-05-12 14:02 | XMS_ITS | Encounter Summary ---
Author Organization [facility] Address [address] [place] [address] Care Team Providers Care Brusher Machine Name Role Phone Samm Serrano MD Primary Care Provider +-4 Tom Gonzalez Unavailable [phone] Andreas Pierre MD Unavailable Virgil Carrillo MD Unavailable Jethro Mendoza MD Unavailable Isaías Kinney MD Unavailable [phone] Source Comments In the event this information is protected by the Federal Confidentiality of Alcohol and Drug AbusePatient Records regulations: The Federal rules restrict any use of the information to criminally investigate or prosecute any alcohol or drug abuse patient.[facility] Encounter Details Date Type Department Care Team (Late st Contact Info) Description 11/29/2022 Patient Msg Cardiology [address] [place] [address] Provider, Ccf Appointment Cancellation Request Social History [...] N ot on file 10/01/2022 Data from: https://www.neighborhoodatlas.medicine.[facility]/. Last address used for [...] 10:00 AM EDT Office Visit Cardiology [address] [place] [address] Isaías Kinney MD [address] [place], [place] [phone] DX: Chronic diastolic heart failure 09/20/2025 8:15 AM EST Procedure Cardiology [address] [place] [address] Dx. Atherosclerotic heart disease of [place] coronary artery with other forms of angina pectoris 09/20/2025 9:00 AM EST Appointment Cardiology [address] [place] [address] Dx. Atherosclerotic heart disease of [place] coronary artery with other forms of angina pectoris 09/20/2025 9:45 AM EST Office Visit Cardiology [address] [place] [address] Nj Wei MD [address] [place] [address] Dx. Atherosclerotic heart disease of [place] coronary artery with other forms of angina pectoris documented as of this encounter Visit Diagnoses Not on filedocumented in this encounter Care Teams Brusher Machine Relationship Specialty Start Date End Date Samm Serrano MD PCP - General Family Medicine 05/30/12 Tom Gonzalez [address] [place] [address] Primary Staff Physician Cardiology 12/02/18 Andreas Pierre MD [address] [facility] [place] [phone] Primary Staff Physician Cardiology 04/26/23 Virgil Carrillo MD [address] [place] [phone] Primary Staff Physician Cardiology 10/29/23 Jethro Mendoza MD [address] [place] [address] Primary Staff Physician Cardiology 12/26/23 Isaías Kinney MD [address] [place] [address] Primary Staff Physician Cardiology 01/10/24 documented as of this encounter
--- OUTSIDE RECORDS SUMMARY | 2025-05-12 14:02 | XMS_ITS | Encounter Summary ---
Author Organization [facility] Address [address] [place] [address] Care Team Providers Care Mulcher Operator Name Role Phone Samm Serrano MD Primary Care Provider +-4 Tom Gonzalez Unavailable [phone] Andreas Pierre MD Unavailable Virgil Carrillo MD Unavailable Jethro Mendoza MD Unavailable Isaías Kinney MD Unavailable [phone] Source Comments In the event this information is protected by the Federal Confidentiality of Alcohol and Drug AbusePatient Records regulations: The Federal rules restrict any use of the information to criminally investigate or prosecute any alcohol or drug abuse patient.[facility] Encounter Details Date Type Department Care Team (Late st Contact Info) Description 11/29/2022 Patient Msg Cardiology [address] [place] [address] Provider, Ccf Appointment Cancellation Request Social History [...] ot on file 10/01/2022 Data from: https://www.neighborhoodatlas.medicine.[facility]/. Last address used for calculation [address] [...] 10:00 AM EDT Office Visit Cardiology [address] [place] [address] Isaías Kinney MD [address] [place], [place] [phone] DX: Chronic diastolic heart failure 09/20/2025 8:15 AM EST Procedure Cardiology [address] [place] [address] Dx. Atherosclerotic heart disease of [place] coronary artery with other forms of angina pectoris 09/20/2025 9:00 AM EST Appointment Cardiology [address] [place] [address] Dx. Atherosclerotic heart disease of [place] coronary artery with other forms of angina pectoris 09/20/2025 9:45 AM EST Office Visit Cardiology [address] [place] [address] Nj Wei MD [address] [place] [address] Dx. Atherosclerotic heart disease of [place] coronary artery with other forms of angina pectoris documented as of this encounter Visit Diagnoses Not on filedocumented in this encounter Care Teams Mulcher Operator Relationship Specialty Start Date End Date Samm Serrano MD PCP - General Family Medicine 05/30/12 Tom Gonzalez [address] [place] [address] Primary Staff Physician Cardiology 12/02/18 Andreas Pierre MD [address] [facility] [place] [phone] Primary Staff Physician Cardiology 04/26/23 Virgil Carrillo MD [address] [place] [phone] Primary Staff Physician Cardiology 10/29/23 Jethro Mendoza MD [address] [place] [address] Primary Staff Physician Cardiology 12/26/23 Isaías Kinney MD [address] [place] [address] Primary Staff Physician Cardiology 01/10/24 documented as of this encounter
--- OUTSIDE RECORDS SUMMARY | 2025-05-12 14:02 | XMS_ITS | Encounter Summary ---
Author Organization [facility] [employer] s tem Address [id number] [address] [place] [address] Care Team Providers Care Pathology Assistant Name Role Phone Samm Serrano MD Primary Care Provider [phone] Encounter Details Date Type Department Care Team (Late st Contact Info) Description 05/03/2025 Lab Requisition [facility] - Lab [address] [place] [id number] Samm Serrano MD [address] [place] [address] Hyperkalemia; Non-ST elevation (NSTEMI) myocardial infarction ([facility]); Heart failure, unspecified ([facility]) Social History Tobacco Use Types Packs/Day Years [...] How often do you attend chur or gnosticism services? Never 08/17/2021 Do you belong to any clubs o r organizations such as religion groups, unions, fraternal or athletic groups, or [...] Answer Date Recorded Total Score 0 08/17/2021 [facility] - Occupational Stress [...] Recorded Do you need help finding a [facility] and/or a training program? [...] Comments THYROID PROFILE INCLUDES TSH FT4 Routine 05/03/2025 12:40 PM EDT Hyperkalemia Non-ST elevation (NSTEMI) myocardial infarction (CMS-HCC) Heart failure, unspecified (CMS-HCC) CBC WITH AUTO DIFFERENTIAL Routine 05/03/2025 12:40 PM EDT Hyperkalemia Non-ST elevation (NSTEMI) myocardial infarction (CMS-HCC) Heart failure, unspecified (CMS-HCC) IRON AND TIBC Routine 05/03/2025 12:40 PM EDT Hyperkalemia Non-ST elevation (NSTEMI) myocardial infarction (CMS-HCC) Heart failure, unspecified (CMS-HCC) T3, FREE Routine 05/03/2025 12:40 PM EDT Hyperkalemia Non-ST elevation (NSTEMI) myocardial infarction (CMS-HCC) Heart failure, unspecified (CMS-HCC) B-TYPE NATRIURETIC PEPTIDE Routine 05/03/2025 12:40 PM EDT Hyperkalemia Non-ST elevation (NSTEMI) myocardial infarction (CMS-HCC) Heart failure, unspecified (CMS-HCC) MAGNESIUM Routine 05/03/2025 12:40 PM EDT Hyperkalemia Non-ST elevation (NSTEMI) myocardial infarction (CMS-HCC) Heart failure, unspecified (CMS-HCC) BASIC METABOLIC PANEL Routine 05/03/2025 12:40 PM EDT Hyperkalemia Non-ST elevation (NSTEMI) myocardial infarction (CMS-HCC) Heart failure, unspecified (CMS-HCC) documented in this encounter Results * T3, free (05/03/2025 12:40 PM EDT) FREE T3 2.78 2.50 - 3.90 pg/mL 05/03/2025 6:40 PM EDT [facility] Blood Venous blood / Unknown 05/03/2025 12:40 PM EDT 05/03/2025 1:09 PM EDT us Samm Serrano MD LAB BLOOD ORDERABLES Final Resu lt [facility] [address] [place] [address], [place] [phone] * (ABNORMAL) Thyroid profile includes TSH FT4 (05/03/2025 12:40 PM EDT) FREE T4 1.15 0.61 - 1.60 ng/dL 05/03/2025 2:01 PM EDT [facility] TSH 0.34(L) 0.49 - 4.67 uIU/mL 05/03/2025 2:01 PM EDT [facility] Blood Venous blood / Unknown 05/03/2025 12:40 PM EDT 05/03/2025 1:09 PM EDT us Samm Serrano MD LAB BLOOD ORDERABLES Final Resu lt [facility] [address] [facility] [place] [address], [place] * Magnesium (05/03/2025 12:40 PM EDT) MAGNESIUM 2.6 1.8 - 2.6 mg/dL 05/03/2025 1:35 PM EDT [facility] Blood Venous blood / Unknown 05/03/2025 12:40 PM EDT 05/03/2025 1:09 PM EDT us Samm Serrano MD LAB BLOOD ORDERABLES Final Resu lt [facility] [address] [place] [address], [place] * (ABNORMAL) Iron and TIBC (05/03/2025 12:40 PM EDT) IRON 58 50 - 212 ug/dL 05/03/2025 6:33 PM EDT [facility] TRANSFERRIN 224 168 - 336 mg/dL 05/03/2025 6:33 PM EDT [facility] IRON BINDING 314 250 - 425 ug/dL 05/03/2025 6:33 PM EDT [facility] IRON SATURATION 18(L) 20 - 50 % SATURATION 05/03/2025 6:33 PM EDT [facility] Blood Venous blood / Unknown 05/03/2025 12:40 PM EDT 05/03/2025 1:09 PM EDT us Samm Serrano MD LAB BLOOD ORDERABLES Final Resu lt [facility] [address] [place] [address], [place] [phone] * (ABNORMAL) CBC auto differential (05/03/2025 12:40 PM EDT) WBC 5.0 4 - 11 x10E9/L 05/03/2025 1:32 PM EDT [facility] RBC Count 3.56(L) 4.1 - 5.7 X10E12/L 05/03/2025 1:32 PM EDT [facility] Hemoglobin 10.8(L) 13 - 17 g/dL 05/03/2025 1:32 PM EDT [facility] Hematocrit 32.4(L) 39 - 50 % 05/03/2025 1:32 PM EDT [facility] MCV 91 80 - 100 fL 05/03/2025 1:32 PM EDT [facility] MCH 30.3 27 - 34 pg 05/03/2025 1:32 PM EDT [facility] MCHC 33.4 32 - 36 g/dL 05/03/2025 1:32 PM EDT [facility] RDW 17.5(H) 11.5 - 15 % 05/03/2025 1:32 PM EDT [facility] Platelet Count 135(L) 150 - 450 X10E9/L 05/03/2025 1:32 PM EDT [facility] MPV 8.5 7 - 12 fL 05/03/2025 1:32 PM EDT [facility] Neutrophils % 71.4 % 05/03/2025 1:32 PM EDT [facility] Lymphocytes % 11.8 % 05/03/2025 1:32 PM EDT [facility] Monocytes % 11.3 % 05/03/2025 1:32 PM EDT [facility] Eosinophils % 5.2 % 05/03/2025 1:32 PM EDT [facility] Basophils % 0.3 % 05/03/2025 1:32 PM EDT [facility] Neutrophils Absolute (A) 3.6 1.5 - 6.6 10*3/uL 05/03/2025 1:32 PM EDT [facility] Lymphocytes Absolute 0.6(L) 1.0 - 3.5 10*3/uL 05/03/2025 1:32 PM EDT [facility] Monocytes Absolute 0.6 0.0 - 0.9 10*3/uL 05/03/2025 1:32 PM EDT [facility] Eosinophils Absolute 0.3 0.0 - 0.4 10*3/uL 05/03/2025 1:32 PM EDT [facility] Basophils Absolute 0.0 0.0 - 0.2 10*3/uL 05/03/2025 1:32 PM EDT [facility] Differential Type AUTOMATED DIFFERENTIAL 05/03/2025 1:32 PM EDT [facility] Blood Venous blood / Unknown 05/03/2025 12:40 PM EDT 05/03/2025 1:09 PM EDT Samm Serrano MD LAB BLOOD ORDERABLES Final Resu lt Performing Organization Address [facility]/ZIP Co de Phone Number [address] [place] [address], [place] * (ABNORMAL) B-type natriuretic peptide (05/03/2025 12:40 PM EDT) BNP 2,591(H) <=100 pg/mL 05/03/2025 2:06 PM EDT [facility] Blood Venous blood / Unknown 05/03/2025 12:40 PM EDT 05/03/2025 1:09 PM EDT us Samm Serrano MD LAB BLOOD ORDERABLES Final Resu lt [address] [place] [address], [place] * (ABNORMAL) Basic Metabolic Panel (05/03/2025 12:40 PM EDT) SODIUM 136 134 - 146 mmol/L 05/03/2025 1:35 PM EDT [facility] POTASSIUM 3.9 3.5 - 5.0 mmol/L 05/03/2025 1:35 PM EDT [facility] CHLORIDE 103 98 - 109 mmol/L 05/03/2025 1:35 PM EDT [facility] CARBON DIOXIDE 24 22 - 32 mmol/L 05/03/2025 1:35 PM EDT [facility] ANION GAP 9 5 - 15 mmol/L 05/03/2025 1:35 PM EDT [facility] BLOOD UREA NITROGEN 58(H) 5 - 27 mg/dL 05/03/2025 1:35 PM EDT [facility] CREATININE 2.10(H) 0.70 - 1.20 mg/dL 05/03/2025 1:35 PM EDT [facility] Comment:METHOD TRACEABLE TO IDMS STANDARD GLUCOSE 119(H) 65 - 99 mg/dL 05/03/2025 1:35 PM EDT [facility] CALCIUM 8.9 8.5 - 10.5 mg/dL 05/03/2025 1:35 PM EDT [facility] EGFR Non-Race Dependent 31(L) >=60 ml/min/1.7 3sq.m 05/03/2025 1:35 PM EDT [facility] Comment: eGFR not reported due to non-numeric value for Creatinine. Reported eGFR is based on the CKD-EPI 2020 equation that does not use a race coefficient. Blood Venous blood / Unknown 05/03/2025 12:40 PM EDT 05/03/2025 1:09 PM EDT us Samm Serrano MD LAB BLOOD ORDERABLES Final Resu lt [facility] [address] [place] [address], documented in this encounter Visit Diagnoses Diagnosis Hyperkalemia Hyperpotassemia Non-ST elevation (NSTEMI) myocardial infarction (CMS-HCC) Heart failure, unspecified (CMS-HCC) Heart failure, unspecified documented in this encounter Additional Health Concerns Assessment Noted Time PHQ-9 Depression Total Score: 0 08/17/20 21 12:12 PM EST documented as of this encounter Care Teams Pathology Assistant Relationship Specialty Start Date End Date Samm Serrano MD PCP - General Family Medicine 02/26/24 documented as of this encounter
--- OUTSIDE RECORDS SUMMARY | 2025-05-12 14:02 | XMS_ITS | Encounter Summary ---
Author Organization [facility] Address [address] [place] [address] Care Team Providers Care Melt Down Furnace Operator Name Role Phone Samm Serrano MD Primary Care Provider [phone] Tom Gonzalez Unavailable [phone] Andreas Pierre MD Unavailable Virgil Carrillo MD Unavailable Jethro Mendoza MD Unavailable Isaías Kinney MD Unavailable [phone] Source Comments In the event this information is protected by the Federal Confidentiality of Alcohol and Drug AbusePatient Records regulations: The Federal rules restrict any use of the information to criminally investigate or prosecute any alcohol or drug abuse patient.[facility] Encounter Details Date Type Department Care Team (Late st Contact Info) Description 11/28/2022 Patient Msg Vascular Surg Dept [address] [place] [address] John Jefferson MD [address] [place] [address] Appointment Cancellation Request Social History [...] on file 10/01/2022 Data from: https://www.neighborhoodatlas.medicine.[facility].edu/. Last address used for calculation [...] 10:00 AM EDT Office Visit Cardiology [address] [place] [address] Isaías Kinney MD [address] [phone] DX: Chronic diastolic heart failure 09/20/2025 8:15 AM EST Procedure Cardiology [address] [place] [address] Dx. Atherosclerotic heart disease of [place] coronary artery with other forms of angina pectoris 09/20/2025 9:00 AM EST Appointment Cardiology [address] [place] [address] Dx. Atherosclerotic heart disease of [place] coronary artery with other forms of angina pectoris 09/20/2025 9:45 AM EST Office Visit Cardiology [address] [place] [address] Nj Wei MD [address] [place] [address] Dx. Atherosclerotic heart disease of [place] coronary artery with other forms of angina pectoris documented as of this encounter Visit Diagnoses Not on filedocumented in this encounter Care Teams Melt Down Furnace Operator Relationship Specialty Start Date End Date Samm Serrano MD PCP - General Family Medicine 05/30/12 Tom Gonzalez [address] [facility] [place] [address] Primary Staff Physician Cardiology 12/02/18 Andreas Pierre MD [address] [facility] [address] Primary Staff Physician Cardiology 04/26/23 Virgil Carrillo MD [address] [place] [address] Primary Staff Physician Cardiology 10/29/23 Jethro Mendoza MD [address] [place] [address] Primary Staff Physician Cardiology 12/26/23 Isaías Kinney MD [address] [place] [address] Primary Staff Physician Cardiology 01/10/24 documented as of this encounter
--- OUTSIDE RECORDS SUMMARY | 2025-05-12 14:02 | XMS_ITS | Encounter Summary ---
Author Organization [facility] Address [address] [place] [address] Care Team Providers Care Communications Tower Technician Name Role Phone Samm Serrano MD Primary Care Provider [phone] Tom Gonzalez Unavailable [phone] Andreas Pierre MD Unavailable Virgil Carrillo MD Unavailable Jethro Mendoza MD Unavailable Isaías Kinney MD Unavailable [phone] Source Comments In the event this information is protected by the Federal Confidentiality of Alcohol and Drug AbusePatient Records regulations: The Federal rules restrict any use of the information to criminally investigate or prosecute any alcohol or drug abuse patient.[facility] Encounter Details Date Type Department Care Team (Late st Contact Info) Description 11/29/2022 Patient Msg Cardiology [address] [place] [address] Provider, Ccf Appointment Cancellation Request Social History [...] ot on file 10/01/2022 Data from: https://www.neighborhoodatlas.medicine.[facility]/. Last address used for calculation [address] [...] 10:00 AM EDT Office Visit Cardiology [address] [place] [address] Isaías Kinney MD [address] [place], [place] [phone] DX: Chronic diastolic heart failure 09/20/2025 8:15 AM EST Procedure Cardiology [address] [place] [address] Dx. Atherosclerotic heart disease of [place] coronary artery with other forms of angina pectoris 09/20/2025 9:00 AM EST Appointment Cardiology [address] [place] [address] Dx. Atherosclerotic heart disease of [place] coronary artery with other forms of angina pectoris 09/20/2025 9:45 AM EST Office Visit Cardiology [address] [place] [address] Nj Wei MD [address] [place] [address] Dx. Atherosclerotic heart disease of [place] coronary artery with other forms of angina pectoris documented as of this encounter Visit Diagnoses Not on filedocumented in this encounter Care Teams Communications Tower Technician Relationship Specialty Start Date End Date Samm Serrano MD PCP - General Family Medicine 05/30/12 Tom Gonzalez [address] [place] [address] Primary Staff Physician Cardiology 12/02/18 Andreas Pierre MD [address] [facility] [place] [phone] Primary Staff Physician Cardiology 04/26/23 Virgil Carrillo MD [address] [place] [phone] Primary Staff Physician Cardiology 10/29/23 Jethro Mendoza MD [address] [place] [address] Primary Staff Physician Cardiology 12/26/23 Isaías Kinney MD [address] [place] [address] Primary Staff Physician Cardiology 01/10/24 documented as of this encounter
--- OUTSIDE RECORDS SUMMARY | 2025-05-12 14:02 | XMS_ITS | Encounter Summary ---
Author Organization [facility] Address [address] [place] [address] Care Team Providers Care Greige Goods Inspector Name Role Phone Samm Serrano MD Primary Care Provider [phone] Tom Gonzalez Unavailable [phone] Andreas Pierre MD Unavailable Virgil Carrillo MD Unavailable Jethro Mendoza MD Unavailable Isaías Kinney MD Unavailable [phone] Source Comments In the event this information is protected by the Federal Confidentiality of Alcohol and Drug AbusePatient Records regulations: The Federal rules restrict any use of the information to criminally investigate or prosecute any alcohol or drug abuse patient.[facility] Encounter Details Date Type Department Care Team (Late st Contact Info) Description 11/28/2022 Patient Msg Vascular Surg Dept [address] [place] [address] Tiarra Lopez APRN.BAIL BONDING AGENT [address] [phone] Appointment Cancellation Request Social History Tobacco Use [...] N ot on file 10/01/2022 Data from: https://www.neighborhoodatlas.medicine.[facility].edu/. Last address used for calculation [...] 10:00 AM EDT Office Visit Cardiology [address] [place] [address] Isaías Kinney MD [address] [phone] DX: Chronic diastolic heart failure 09/20/2025 8:15 AM EST Procedure Cardiology [address] [place] [id number] Dx. Atherosclerotic heart disease of [place] coronary artery with other forms of angina pectoris 09/20/2025 9:00 AM EST Appointment Cardiology [address] [place] [address] Dx. Atherosclerotic heart disease of [place] coronary artery with other forms of angina pectoris 09/20/2025 9:45 AM EST Office Visit Cardiology [address] [place] [address] Nj Wei MD [address] [place] [address] Dx. Atherosclerotic heart disease of [place] coronary artery with other forms of angina pectoris documented as of this encounter Visit Diagnoses Not on filedocumented in this encounter Care Teams Greige Goods Inspector Relationship Specialty Start Date End Date Samm Serrano MD PCP - General Family Medicine 05/30/12 Tom Gonzalez [address] [facility] [address] Primary Staff Physician Cardiology 12/02/18 Andreas Pierre MD [address] [facility] [place] [address] Primary Staff Physician Cardiology 04/26/23 Virgil Carrillo MD [address] [place] [address] Primary Staff Physician Cardiology 10/29/23 Jethro Mendoza MD [address] [facility] [place] [address] Primary Staff Physician Cardiology 12/26/23 Isaías Kinney MD [address] [place] [address] Primary Staff Physician Cardiology 01/10/24 documented as of this encounter
--- OUTSIDE RECORDS SUMMARY | 2025-05-12 14:02 | XMS_ITS | Encounter Summary ---
Author Organization [facility] [employer] s tem Address [facility] [id number] [address] [place] [address] Care Team Providers Care Information Systems Coordinator Name Role Phone Samm Serrano MD Primary Care Provider [phone] Encounter Details Date Type Department Care Team (Late st Contact Info) Description 04/27/2025 Lab Requisition [facility] - Lab [address] [place] [id number] Samm Serrano MD [address] [place] [address] Hyperkalemia; Non-ST elevation (NSTEMI) myocardial infarction ([facility]-HCC); Heart failure, unspecified (CMS-HCC); Gout, unspecified Social History Tobacco Use Types [...] week 08/17/2021 How often do you attend [facility] or mu-ism services? Never 08/17/2021 Do you belong to [...] Answer Date Recorded Total Score 0 08/17/2021 [facility] - [...] Recorded Do you need help finding a [facility] and/or a training program? No [...] Comments THYROID PROFILE INCLUDES TSH FT4 Routine 04/27/2025 4:05 PM EDT Hyperkalemia Non-ST elevation (NSTEMI) myocardial infarction (CMS-HCC) Heart failure, unspecified (CMS-HCC) Gout, unspecified CBC WITH AUTO DIFFERENTIAL Routine 04/27/2025 4:05 PM EDT Hyperkalemia Non-ST elevation (NSTEMI) myocardial infarction (CMS-HCC) Heart failure, unspecified (CMS-HCC) Gout, unspecified IRON AND TIBC Routine 04/27/2025 4:05 PM EDT Hyperkalemia Non-ST elevation (NSTEMI) myocardial infarction (CMS-HCC) Heart failure, unspecified (CMS-HCC) Gout, unspecified URIC ACID Routine 04/27/2025 4:05 PM EDT Hyperkalemia Non-ST elevation (NSTEMI) myocardial infarction (CMS-HCC) Heart failure, unspecified (CMS-HCC) Gout, unspecified T3, FREE Routine 04/27/2025 4:05 PM EDT Hyperkalemia Non-ST elevation (NSTEMI) myocardial infarction (CMS-HCC) Heart failure, unspecified (CMS-HCC) Gout, unspecified B-TYPE NATRIURETIC PEPTIDE Routine 04/27/2025 4:05 PM EDT Hyperkalemia Non-ST elevation (NSTEMI) myocardial infarction (CMS-HCC) Heart failure, unspecified (CMS-HCC) Gout, unspecified MAGNESIUM Routine 04/27/2025 4:05 PM EDT Hyperkalemia Non-ST elevation (NSTEMI) myocardial infarction (CMS-HCC) Heart failure, unspecified (CMS-HCC) Gout, unspecified BASIC METABOLIC PANEL Routine 04/27/2025 4:05 PM EDT Hyperkalemia Non-ST elevation (NSTEMI) myocardial infarction (CMS-HCC) Heart failure, unspecified (CMS-HCC) Gout, unspecified documented in this encounter Results * (ABNORMAL) Uric acid (04/27/2025 4:05 PM EDT) URIC ACID 12.1(H) 2.6 - 7.2 mg/dL 04/27/2025 6:29 PM EDT [facility] Blood Venous blood / Unknown 04/27/2025 4:05 PM EDT 04/27/2025 4:42 PM EDT us Samm Serrano MD LAB BLOOD ORDERABLES Final Resu lt [facility] [address] [place] [address], * T3, free (04/27/2025 4:05 PM EDT) FREE T3 2.62 2.50 - 3.90 pg/mL 04/28/2025 12:30 PM EDT [facility] Blood Venous blood / Unknown 04/27/2025 4:05 PM EDT 04/27/2025 4:42 PM EDT Samm Serrano MD LAB BLOOD ORDERABLES Final Resu lt [facility] [address] [place] [address], [place] [phone] * Thyroid profile includes TSH FT4 (04/27/2025 4:05 PM EDT) FREE T4 1.34 0.61 - 1.60 ng/dL 04/27/2025 5:19 PM EDT [facility] TSH 0.49 0.49 - 4.67 uIU/mL 04/27/2025 5:19 PM EDT [facility] Blood Venous blood / Unknown 04/27/2025 4:05 PM EDT 04/27/2025 4:42 PM EDT Samm Serrano MD LAB BLOOD ORDERABLES Final Resu lt Performing Organization Address City/[facility]/ZIP Co de Phone Number [address] [place] [address], [place] * (ABNORMAL) Magnesium (04/27/2025 4:05 PM EDT) MAGNESIUM 2.7(H) 1.8 - 2.6 mg/dL 04/27/2025 5:59 PM EDT [facility] Blood Venous blood / Unknown 04/27/2025 4:05 PM EDT 04/27/2025 4:42 PM EDT Samm Serrano MD LAB BLOOD ORDERABLES Final Resu lt Performing Organization Address City/[facility]/ZIP Co de Phone Number [address] [place] [address], [place] * (ABNORMAL) Iron and TIBC (04/27/2025 4:05 PM EDT) IRON 53 50 - 212 ug/dL 04/28/2025 12:26 PM EDT [facility] TRANSFERRIN 216 168 - 336 mg/dL 04/28/2025 12:26 PM EDT [facility] IRON BINDING 302 250 - 425 ug/dL 04/28/2025 12:26 PM EDT [facility] IRON SATURATION 18(L) 20 - 50 % SATURATION 04/28/2025 12:26 PM EDT [facility] Blood Venous blood / Unknown 04/27/2025 4:05 PM EDT 04/27/2025 4:42 PM EDT us Samm Serrano MD LAB BLOOD ORDERABLES Final Resu lt [facility] [address] [place] [address], [place] [phone] * (ABNORMAL) CBC auto differential (04/27/2025 4:05 PM EDT) WBC 5.9 4 - 11 x10E9/L 04/27/2025 4:56 PM EDT [facility] RBC Count 3.70(L) 4.1 - 5.7 X10E12/L 04/27/2025 4:56 PM EDT [facility] Hemoglobin 11.2(L) 13 - 17 g/dL 04/27/2025 4:56 PM EDT [facility] Hematocrit 33.8(L) 39 - 50 % 04/27/2025 4:56 PM EDT [facility] MCV 91 80 - 100 fL 04/27/2025 4:56 PM EDT [facility] MCH 30.2 27 - 34 pg 04/27/2025 4:56 PM EDT [facility] MCHC 33.1 32 - 36 g/dL 04/27/2025 4:56 PM EDT [facility] RDW 17.5(H) 11.5 - 15 % 04/27/2025 4:56 PM EDT [facility] Platelet Count 162 150 - 450 X10E9/L 04/27/2025 4:56 PM EDT [facility] MPV 7.9 7 - 12 fL 04/27/2025 4:56 PM EDT [facility] Neutrophils % 73.2 % 04/27/2025 4:56 PM EDT [facility] Lymphocytes % 11.9 % 04/27/2025 4:56 PM EDT [facility] Monocytes % 11.2 % 04/27/2025 4:56 PM EDT [facility] Eosinophils % 3.2 % 04/27/2025 4:56 PM EDT [facility] Basophils % 0.5 % 04/27/2025 4:56 PM EDT [facility] Neutrophils Absolute (A) 4.3 1.5 - 6.6 10*3/uL 04/27/2025 4:56 PM EDT [facility] Lymphocytes Absolute 0.7(L) 1.0 - 3.5 10*3/uL 04/27/2025 4:56 PM EDT [facility] Monocytes Absolute 0.7 0.0 - 0.9 10*3/uL 04/27/2025 4:56 PM EDT [facility] Eosinophils Absolute 0.2 0.0 - 0.4 10*3/uL 04/27/2025 4:56 PM EDT [facility] Basophils Absolute 0.0 0.0 - 0.2 10*3/uL 04/27/2025 4:56 PM EDT [facility] Differential Type AUTOMATED DIFFERENTIAL 04/27/2025 4:56 PM EDT [facility] Blood Venous blood / Unknown 04/27/2025 4:05 PM EDT 04/27/2025 4:42 PM EDT us Samm Serrano MD LAB BLOOD ORDERABLES Final Resu lt [facility] [address] [place] [address], [place] * (ABNORMAL) B-type natriuretic peptide (04/27/2025 4:05 PM EDT) BNP 3,590(H) <=100 pg/mL 04/27/2025 5:34 PM EDT [facility] Blood Venous blood / Unknown 04/27/2025 4:05 PM EDT 04/27/2025 4:42 PM EDT us Samm Serrano MD LAB BLOOD ORDERABLES Final Resu lt [facility] [address] [place] [address], * (ABNORMAL) Basic Metabolic Panel (04/27/2025 4:05 PM EDT) SODIUM 136 134 - 146 mmol/L 04/27/2025 5:59 PM EDT [facility] POTASSIUM 4.7 3.5 - 5.0 mmol/L 04/27/2025 5:59 PM EDT [facility] CHLORIDE 103 98 - 109 mmol/L 04/27/2025 5:59 PM EDT [facility] CARBON DIOXIDE 24 22 - 32 mmol/L 04/27/2025 5:59 PM EDT [facility] ANION GAP 9 5 - 15 mmol/L 04/27/2025 5:59 PM EDT [facility] BLOOD UREA NITROGEN 60(H) 5 - 27 mg/dL 04/27/2025 5:59 PM EDT [facility] CREATININE 2.12(H) 0.70 - 1.20 mg/dL 04/27/2025 5:59 PM EDT [facility] Comment:METHOD TRACEABLE TO IDMS STANDARD GLUCOSE 108(H) 65 - 99 mg/dL 04/27/2025 5:59 PM EDT [facility] CALCIUM 8.9 8.5 - 10.5 mg/dL 04/27/2025 5:59 PM EDT [facility] EGFR Non-Race Dependent 30(L) >=60 ml/min/1.7 3sq.m 04/27/2025 5:59 PM EDT [facility] Comment: eGFR not reported due to non-numeric value for Creatinine. Reported eGFR is based on the CKD-EPI 2020 equation that does not use a race coefficient. Blood Venous blood / Unknown 04/27/2025 4:05 PM EDT 04/27/2025 4:42 PM EDT us Samm Serrano MD LAB BLOOD ORDERABLES Final Resu lt [facility] [address] documented in this encounter Visit Diagnoses Diagnosis Hyperkalemia Hyperpotassemia Non-ST elevation (NSTEMI) myocardial infarction ([facility]-HCC) Heart failure, unspecified ([facility]-HCC) Heart failure, unspecified Gout, unspecified documented in this encounter Additional Health Concerns Assessment Noted Time PHQ-9 Depression Total Score: 0 08/17/20 21 12:12 PM EST documented as of this encounter Care Teams Information Systems Coordinator Relationship Specialty Start Date End Date Samm Serrano MD PCP - General Family Medicine 02/26/24 documented as of this encounter
--- OUTSIDE RECORDS SUMMARY | 2025-05-12 14:02 | XMS_ITS | Clinical Summary ---
Author Organization [facility] Address [address] [place] [address] Care Team Providers Care Esthetician And Manager [employer] Name Role Phone Francisca Serrano MD Primary Care Provider [phone] Allergies Active Allergy Reactions Criticality Noted Date [...] succinate XL (Toprol-XL) 25 mg 24 hr tabletIndications: MYLES (acute kidney injury) Take 0.5 tablets (12.5 mg) by mouth in the morning for 89 doses. Do not crush or chew. 10/16/19 25 Active mexiletine (Mexitil) 150 mg capsuleIndications :MYLES (acute kidney injury) Take 1 capsule (150 mg) by mouth two times daily for 192 doses. 10/16/19 25 Active bumetanide (Bumex) 2 mg tabletIndications: MYLES (acute kidney injury) Take 1 tablet (2 mg) by mouth every 12 (twelve) hours for 198 doses. 10/17/19 25 Active thiamine (Vitamin B-1) 100 mg tablet Take 100 mg by mouth in the morning. Active potassium chloride CR (Klor-Con M20) 20 mEq ER tabletIndications: Hypokalemia Take 1 tablet (20 mEq) by mouth in the morning. Do not crush or chew. 60 tablet 1 03/14/20 25 Active Additional Information Patient taking differently: 10 mEqoral Daily, Do not crush or chew., Reported on 04/26/2025 aMILoride (Midamor) 5 mg tabletIndications: Cardiorenal syndrome with renal failure, stage 1-4 or unspecified chronic kidney disease, with heart failure (CMS/HCC),Hypokale mindi,Heart failure with reduced ejection fraction (CMS/HCC) Take 1 tablet (5 mg) by mouth in the morning. 60 tablet 1 03/15/20 25 Active liothyronine (Cytomel) 5 mcg tabletIndications: Acquired hypothyroidism Take 1 tablet (5 mcg) by mouth in the morning. 30 tablet 03/16/20 25 Active ondansetron (Zofran) 4 mg tablet Take 8 mg by mouth if needed. Active ferrous sulfate 325 (65 Fe) MG EC tablet Take 325 mg by mouth in the morning. 04/14/20 25 Active bumetanide (Bumex) 1 mg tabletIndications: Acute combined systolic and diastolic heart failure (CMS/HCC) Take 1 tablet (1 mg) by mouth in the morning. 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 Both and patient are where the most contact waste disposal attendant prior to taking the medication. Viagra 1/2 [...] sexual function is: cannot sustain erection Comorbidities: cardiac---AL, Has AICD ==== 07/17/2019 ==== patient follow-up [...] cold sweat ~ 1100 at rest during orthodoxy on 11/16. There was no nausea, chest pain, jaw pain, shortness of breath, or lightheadedness. This is similar to his symptoms when patient had STEMI in 04/2012. Patient presented to [facility] at 1200. EKG showed q waves in III, aVF; ST depression in I, aVL; ST elevation V3, V4, V5. On arrival to [facility] his EKG showed resolution of ST elevation in V4 and V5. His troponin 0.367 at OSH (? Troponin I); but has been negative at [facility] Main campus. Assessment: Possible atypical manifestations type II demand ischemia in setting of recent dehydration from profuse diarrhea or residual symptoms of recent illness. Cold sweat resolved after arrival. Plan: Trend cardiac enzymes, monitor clinical symptoms, and serial EKG's as needed. If continue to worsen clinically, would proceed to [facility]. S/P CABG (coronary artery bypass [...] (03/15/2025 4:04 PM EDT): Blood culture from [facility] reported Stenotrophomonas maltophilia Per ID blood cultures likely contaminant and antibiotics being discontinued Assessment & Plan (03/14/2025 11:12 AM EDT): Blood culture from [facility] reported Stenotrophomonas maltophilia Per ID blood cultures likely contaminant and antibiotics being discontinued Assessment & Plan (03/13/2025 12:15 PM EDT): Blood culture from [facility] reported Stenotrophomonas maltophilia Per ID blood cultures likely contaminant and antibiotics being discontinued Assessment & Plan (03/12/2025 4:29 PM EDT): Blood culture from [facility] reported Stenotrophomonas maltophilia Per ID blood cultures likely contaminant and antibiotics being discontinued Assessment & Plan (03/11/2025 2:32 PM EDT): Blood culture from [facility] reported Stenotrophomonas maltophilia Per ID blood cultures likely contaminant and antibiotics being discontinued Assessment & Plan (03/10/2025 3:11 PM EDT): Blood culture from [facility] reported Stenotrophomonas maltophilia Per ID blood cultures likely contaminant and antibiotics being discontinued Assessment & Plan (03/09/2025 1:05 PM EDT): Blood culture from [facility] reported Stenotrophomonas maltophilia Per ID blood [...] in 2012 Heart cath 2021 with patent OTOT-LAD and SVG to OM< occluded VG to [...] likely will need right heart cath with [place] catheter as well as inotropic agent based [...] Encounters Date Type Department Care Team Description 04/29/2025 Telephone [facility] [address] [place] [facility] [place] [address] Radha Galindo MA 04/28/2025 Orders Only [facility] [address] [place] [address] Lynnette Dacosta MA Acute combined systolic and diastolic heart failure (CMS/HCC) (Primary Dx) 04/26/2025 2:30 PM EDT Office Visit [facility] [address] [place] [phone] Ozzie Crain MD Chronic systolic heart failure (CMS/HCC) (Primary Dx); 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; Stage 3b chronic kidney disease (CMS/HCC); S/P mitral valve clip implantation; ICD (implantable cardioverter-defibrill ator) discharge; S/P CABG (coronary artery bypass graft); Paroxysmal atrial fibrillation (CMS/HCC); Nonrheumatic mitral valve regurgitation 04/16/2025 Orders Only [facility] [address] [place] [facility] [place] [address] Nidia Pa MA Pleural effusion (Primary Dx) 04/16/2025 Orders Only [facility] [address] [place] [facility] [place] [address] Nidia Pa MA 04/15/2025 Telephone [facility] [address] [place] [id number] Taylor Kendall MD 04/14/2025 Orders Only [place] [address] [place] [facility] [place] [address] Nidia Pa MA Edema, unspecified type (Primary Dx) 04/14/2025 Telephone [facility] [address] [place] [facility] [place] [address] Nidia Pa MA 04/08/2025 9:20 AM EDT Office Visit [facility] [address] [place] [facility] [place] [address] Conchita Rivera CNP Stage 3b chronic kidney disease (CMS/HCC) (Primary Dx); Chronic systolic heart failure (CMS/HCC); Abnormal liver enzymes; Cardiomyopathy, ischemic; ICD (implantable cardioverter-defibrill ator) discharge; 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; S/P CABG (coronary artery bypass graft); Paroxysmal atrial fibrillation (CMS/HCC); Nonrheumatic mitral valve regurgitation; History of mitral valve repair 04/08/2025 Telephone [facility] [address] [place] [facility] [place] [address] Radha Galindo MA 04/06/2025 Telephone [facility] [address] [place] [facility] [place] [address] Nidia Pa MA 03/26/2025 Telephone [place] [address] [place] [facility] [place] [address] Radha Galindo MA 03/25/2025 Orders Only [facility] [address] [place] [facility] [place] [address] Nidia Pa MA Edema, unspecified type (Primary Dx) 03/24/2025 Refill [facility] [address] [place] [facility] [place] [address] Nidia Pa MA 03/24/2025 Orders Only [facility] [address] [facility] [place] [address] Taylor Kendall MD 03/21/2025 2:53 PM EDT - 03/21/2025 5:34 PM EDT Emergency [facility] Emergency [address] [place] [address] Juan R Alcantara DO Hematuria, unspecified type (Primary Dx); Urinary tract infection with hematuria, site unspecified Discharge Disposition: Home or Self Care (01) 03/21/2025 Travel 03/17/2025 3:40 PM EDT Office Visit [facility] [address] [facility] [place] [address] Taylor Kendall MD Chronic systolic heart failure (CMS/HCC) (Primary Dx); Cardiomyopathy, ischemic; 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; S/P CABG (coronary artery bypass graft); Paroxysmal atrial fibrillation (CMS/HCC); NSVT (nonsustained ventricular tachycardia) (CMS/HCC); ICD (implantable cardioverter-defibrill ator) discharge; Nonrheumatic mitral valve regurgitation; History of mitral valve repair; Cerebrovascular accident (CVA) due to occlusion of precerebral artery (CMS/HCC); Carotid stenosis, asymptomatic, left; Pure hypercholesterolemia; Stage 3b chronic kidney disease (CMS/HCC) 03/17/2025 Telephone [facility] [address] [facility] [place] [address] Nidia Pa MA 03/17/2025 Telephone [facility] Vascular Lab [address] [place] [address] Radha Dela Cruz RN HF post discharge call and inpatient survey sent. 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 insulin use, unspecified whether stage 3a or 3b CKD (CMS/HCC); Acute on chronic combined systolic and diastolic congestive heart failure (CMS/HCC); Presence of automatic (implantable) cardiac defibrillator; Cardiorenal syndrome with renal failure, stage 1-4 or unspecified chronic kidney disease, with heart failure (CMS/HCC); 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; Primary hypertension; Acquired hypothyroidism; S/P CABG (coronary artery bypass graft); Acute HFrEF (heart failure with reduced ejection fraction) (CMS/HCC); Chronic HFrEF (heart failure with reduced ejection fraction) (CMS/HCC); Hypokalemia; Heart failure with reduced ejection fraction (CMS/HCC) Discharge Disposition: Home-Health Care [facility] (06) 03/05/2025 Travel from Last 3 Months Immunizations Immunization Administration Dates Next Due [facility] 06/13/2020 Family History Medical History Relation Name Comments Coronary artery disease Brother Coronary artery disease Father Relation Name Status Comments Brother Father Mother Social History Tobacco Use Types Packs/Day Years Used Date Smoking Tobacco: Former Cigarettes Smokeless Tobacco: Never Tobacco Cessation:Counseling Given: Not Answered Alcohol Use Standard Drinks/Week Comments Not Currently 0 (1 standard drink = 0.6 oz pur e alcohol) [facility] Utilities Answer Date Recorded In the past 12 months has [employer], [employer], oil, or water [employer] threatened to shut off services in your [...] in the past [address] [facility], were you homeless or living in a [facility] (including now)? No 03/05/2025 Hunger Vital Sign [...] Sign Reading Time Taken Comments Blood Pressure 107/71 04/26/2025 2:39 PM EDT Pulse 71 04/26/2025 2:39 PM EDT Temperature 36.5 C (97.7 F) 03/21/2025 2:55 PM EDT Respiratory Rate 15 03/21/2025 5:33 PM EDT Oxygen Saturation 98% 04/26/2025 2:39 PM EDT Inhaled Oxygen Concentration - - Weight 72.6 kg (160 lb) 04/26/2025 2:39 PM EDT Height 182.9 cm (6') 04/26/2025 2:39 PM EDT Body Mass Index 21.7 04/26/2025 2:39 PM EDT Plan of Treatment Upcoming Encounters Date Type Department Care Team (Late st Contact Info) Description 06/21/2025 3:15 PM EDT Office Visit [facility] [address] [place] [address] Ozzie Crain MD [address] [place] [address] Health Maintenance Due Date Last [...] Seen, 0-2 /HPF 03/21/2025 3:[address] [facility] ([facility]) WBC, Urine 21-50(A) None Seen, 0-2 /HPF 03/21/2025 3:[address] [facility] ([facility]) Squamous Epithelial, Urine None Seen None Seen, Occasional , Few /LPF 03/21/2025 3:[address] [facility] ([facility]) Urine Urine specimen obtained by clean catch procedure / Unknown Non-blood Collection / Unknown 03/21/2025 3:33 PM EDT 03/21/2025 3:40 PM EDT us Juan R Alcantara DO LAB URINE ORDERABLES Final Result [facility] ([facility]) [address] [place], [place] [id number] * (ABNORMAL) Urinalysis with reflex culture (03/21/2025 3:33 PM EDT) Color, Urine Red(A) Colorless, Yellow, Light-Yello w 03/21/2025 3:[address] [facility] ([facility]) Clarity, Urine Turbid(A) Clear 03/21/2025 3:[address] [facility] ([facility]) pH, Urine 7.0 5.0 - 8.0 pH 03/21/2025 3:[address] [facility] ([facility]) Leukocytes, Urine Unable to Perform Due to Color Interference Negative 03/21/2025 3:[address] [facility] ([facility]) Nitrite, Urine Unable to Perform Due to Color Interference Negative 03/21/2025 3:[address] [facility] ([facility]) Protein, Urine Unable to Perform Due to Color Interference Negative mg/dL 03/21/2025 3:[address] [facility] ([facility]) Glucose, Urine Unable to Perform Due to Color Interference Normal mg/dL 03/21/2025 3:[address] [facility] ([facility]) Bilirubin, Urine Unable to Perform Due to Color Interference Negative 03/21/2025 3:[address] [facility] ([facility]) Specific [place], Urine 1.007(L) 1.010 - 1.030 03/21/2025 3:[address] [facility] ([facility]) Ketones, Urine Unable to Perform Due to Color Interference Negative mg/dL 03/21/2025 3:[address] [facility] ([facility]) Blood, Urine Unable to Perform Due to Color Interference Negative 03/21/2025 3:[address] [facility] ([facility]) Urobilinogen, Urine Unable to Perform Due to Color Interference Normal mg/dL 03/21/2025 3:[address] [facility] ([facility]) Urine Urine specimen obtained by clean catch procedure / Unknown Non-blood Collection / Unknown 03/21/2025 3:33 PM EDT 03/21/2025 3:40 PM EDT us Juan R Alcantara DO LAB URINE ORDERABLES Final Result [facility] ([facility]) [address] [place] [address] * Urine culture, routine (03/21/2025 3:33 PM EDT) Urine Culture No growth at 48 hours KYAW 03/23/2025 7:[address] [facility] ([facility]) Urine Urine specimen obtained by clean catch procedure / Unknown Non-blood Collection / Unknown 03/21/2025 3:33 PM EDT 03/21/2025 3:40 PM EDT us Juan R Alcantara DO LAB MICROBIOLOGY - GENERAL ORDERABLES Final Result [facility] ([place]) [address] [place] [address] * (ABNORMAL) CBC auto differential (03/21/2025 3:16 PM EDT) Only the most recent of2 resultswithin the time period is included. Auto WBC 4.12 4.00 - 10.60 10*3/uL 03/21/2025 3:[address] [facility] ([facility]) RBC 4.05(L) 4.20 - 5.70 10*6/uL 03/21/2025 3:[address] [facility] ([facility]) Hemoglobin 12.2(L) 13.0 - 17.0 g/dL 03/21/2025 3:[address] [facility] ([facility]) Hematocrit 39.6 39.0 - 50.0 % 03/21/2025 3:[address] [facility] ([facility]) MCV 97.8 82.0 - 98.0 fL 03/21/2025 3:[address] [facility] ([facility]) MCH 30.1 27.0 - 33.0 pg 03/21/2025 3:[address] [facility] ([facility]) MCHC 30.8(L) 32.0 - 35.0 g/dL 03/21/2025 3:[address] [facility] ([facility]) RDW 16.0(H) 11.5 - 15.0 % 03/21/2025 3:[address] [facility] ([facility]) Neutrophils % 55.9 40.0 - 72.0 % 03/21/2025 3:[address] [facility] ([facility]) Lymphocytes % 20.6 20.0 - 45.0 % 03/21/2025 3:[address] [facility] ([facility]) Monocytes % 14.3(H) 5.0 - 12.0 % 03/21/2025 3:[address] [facility] ([facility]) Eosinophils % 8.0(H) 0.0 - 6.0 % 03/21/2025 3:[address] [facility] ([facility]) Basophils % 0.7 0.0 - 1.0 % 03/21/2025 3:[address] [facility] ([facility]) Neutrophils Absolute 2.30 1.60 - 7.60 10*3/uL 03/21/2025 3:[address] [facility] ([facility]) Lymphocytes Absolute 0.85(L) 1.20 - 4.00 10*3/uL 03/21/2025 3:[address] [facility] ([facility]) Monocytes Absolute 0.59 0.10 - 1.00 10*3/uL 03/21/2025 3:[address] [facility] ([facility]) Eosinophils Absolute 0.33 0.00 - 0.50 10*3/uL 03/21/2025 3:[address] [facility] ([facility]) Basophils Absolute 0.03 0.00 - 0.20 10*3/uL 03/21/2025 3:[address] [facility] ([facility]) Platelets 196 150 - 400 10*3/uL 03/21/2025 3:[address] [facility] ([facility]) nRBC % 0.0 0 % 03/21/2025 3:[address] [facility] ([facility]) Immature Granulocytes % 0.5 0.0 - 1.0 % 03/21/2025 3:[address] [facility] ([facility]) Immature Granulocytes Absolute 0.02 0.00 - 0.20 10*3/uL 03/21/2025 3:[address] [facility] ([facility]) Blood Venous blood specimen / Unknown Venipuncture / Unknown 03/21/2025 3:16 PM EDT 03/21/2025 3:43 PM EDT us Juan R Alcantara DO LAB BLOOD ORDERABLES Final Result [facility] ([facility]) [address] [place] [address] * Light Green Top (03/21/2025 3:16 PM EDT) Extra Tube Hold for add-ons. 03/21/2025 5:[address] [facility] ([facility]) Comment:Auto resulted. Blood Venous blood specimen / Unknown Venipuncture / Unknown 03/21/2025 3:16 PM EDT 03/21/2025 3:42 PM EDT [facility] BLOOD ORDERABLES Final Result Performing Organization Address [facility] Co de Phone Number [facility]) [place] [address] * APTT (03/21/2025 3:16 PM EDT) Only the most recent of2 resultswithin the time period is included. aPTT 29.5 25.0 - 35.0 Seconds 03/21/2025 3:56 PM EDT [facility] ([facility]) Comment:Clinical significanc e of the APTT is questionable in the presence of heparin. Blood Venous blood specimen / Unknown Venipuncture / Unknown 03/21/2025 3:16 PM EDT 03/21/2025 3:40 PM EDT [facility] BLOOD ORDERABLES Final Result Performing Organization Address City/[facility]/ZIP Co de Phone Number [facility]) [address] [place] [address] * (ABNORMAL) Protime-INR (03/21/2025 3:16 PM EDT) Only the most recent of2 resultswithin the time period is included. Protime 17.6(H) 12.3 - 14.8 Seconds 03/21/2025 3:[address] [facility] ([facility]) INR 1.44(H) 0.90 - 1.10 03/21/2025 3:[address] [facility] ([place]) Comment: [facility] RECOMMENDED INR [...] Alcantara DO LAB BLOOD ORDERABLES Final Result [facility] ([facility]) [address] [place] [address] * (ABNORMAL) Basic metabolic panel (03/21/2025 3:16 PM EDT) Only the most recent of11 resultswithin the time period is included. Sodium 134(L) 136 - 145 mmol/L 03/21/2025 5:[address] [facility] ([place]) Potassium 4.5 3.5 - 5.1 mmol/L 03/21/2025 5:[address] [facility] ([place]) Chloride 102 98 - 107 mmol/L 03/21/2025 5:[address] [facility] ([facility]) CO2 25 21 - 31 mmol/L 03/21/2025 5:[address] [facility] ([facility]) BUN 64(H) 7 - 25 mg/dL 03/21/2025 5:[address] [facility] ([facility]) Creatinine 1.98(H) 0.70 - 1.30 mg/dL 03/21/2025 5:[address] [facility] ([facility]) Glucose 89 70 - 100 mg/dL 03/21/2025 5:[address] [facility] ([facility]) Calcium 9.3 8.6 - 10.3 mg/dL 03/21/2025 5:[address] [facility] ([facility]) Anion Gap 12 7 - 20 mmol/L 03/21/2025 5:[address] [facility] ([facility]) eGFR 32.9(L) >60.0 mL/min/1. 73m*2 03/21/2025 5:[address] [facility] ([facility]) Comment:[facility] s estimated glomerular filtration rate [...] BUN/Creatinine Ratio 32.3 /02/2025 5:[address] [facility] ([facility]) Blood Venous blood specimen / Unknown Venipuncture / Unknown 03/21/2025 3:16 PM EDT 03/21/2025 3:42 PM EDT us Juan R Alcantara DO LAB BLOOD ORDERABLES Final Result [facility] ([facility]) [address] [place] [address] * (ABNORMAL) CBC (03/16/2025 4:05 AM EDT) Only the most recent of9 resultswithin the time period is included. Auto WBC 4.37 4.00 - 10.60 10*3/uL 03/16/2025 4:[address] [facility] ([facility]) RBC 4.21 4.20 - 5.70 10*6/uL 03/16/2025 4:[address] [facility] ([facility]) Hemoglobin 12.7(L) 13.0 - 17.0 g/dL 03/16/2025 4:[address] [facility] ([facility]) Hematocrit 40.3 39.0 - 50.0 % 03/16/2025 4:[address] [facility] ([facility]) MCV 95.7 82.0 - 98.0 fL 03/16/2025 4:[address] [facility] ([facility]) MCH 30.2 27.0 - 33.0 pg 03/16/2025 4:[address] [facility] ([facility]) MCHC 31.5(L) 32.0 - 35.0 g/dL 03/16/2025 4:[address] [facility] ([facility]) RDW 16.0(H) 11.5 - 15.0 % 03/16/2025 4:[address] [facility] ([facility]) Platelets 162 150 - 400 10*3/uL 03/16/2025 4:[address] [facility] ([facility]) Blood Venous blood specimen / Unknown Venipuncture / Unknown 03/16/2025 4:05 AM EDT 03/16/2025 4:44 AM EDT Jose Vargas MD LAB BLOOD ORDERABLES Final Result [facility] ([facility]) [address] [place], [place] [id number] * Magnesium (03/16/2025 4:05 AM EDT) Only the most recent of11 resultswithin the time period is included. Magnesium 2.4 1.9 - 2.7 mg/dL 03/16/2025 5:[address] [facility] ([facility]) Blood Venous blood specimen / Unknown Venipuncture / Unknown 03/16/2025 4:05 AM EDT 03/16/2025 4:43 AM EDT us Tino Borja MD LAB BLOOD ORDERABLES Final Resul t [facility] ([facility]) [address] [place] [address] * (ABNORMAL) Hepatic function panel (03/09/2025 8:11 AM EDT) Total Bilirubin 1.4(H) 0.3 - 1.0 mg/dL 03/09/2025 9:[address] [facility] ([facility]) Bilirubin, Direct 0.6(H) 0 - 0.2 mg/dL 03/09/2025 9:[address] [facility] ([facility]) Alkaline Phosphatase 129(H) 34 - 104 U/L 03/09/2025 9:[address] [facility] ([facility]) AST 29 13 - 39 U/L 03/09/2025 9:[address] [facility]) ALT (SGPT) 14 7 - 52 U/L 03/09/2025 9:[address] [facility]) Total Protein 6.4 6.0 - 8.3 g/dL 03/09/2025 9:[address] [facility] ([facility]) Albumin 3.2(L) 3.5 - 5.7 g/dL 03/09/2025 9:[address] [facility]) Blood Venous blood specimen / Unknown Venipuncture / Unknown 03/09/2025 8:11 AM EDT 03/09/2025 8:20 AM EDT us Jose Vargas MD LAB BLOOD ORDERABLES Final Result [facility] ([facility]) [address] [place] [address] * (ABNORMAL) Electrolyte panel (03/09/2025 8:11 AM EDT) Only the most recent of7 resultswithin the time period is included. Sodium 136 136 - 145 mmol/L 03/09/2025 8:[address] [facility] ([facility]) Potassium 3.7 3.5 - 5.1 mmol/L 03/09/2025 8:[address] [facility] ([facility]) Chloride 90(L) 98 - 107 mmol/L 03/09/2025 8:[address] [facility] ([facility]) CO2 38(H) 21 - 31 mmol/L 03/09/2025 8:[address] [facility] ([facility]) Anion Gap 12 7 - 20 mmol/L 03/09/2025 8:[address] [facility] ([facility]) Blood Venous blood specimen / Unknown Venipuncture / Unknown 03/09/2025 8:11 AM EDT 03/09/2025 8:20 AM EDT us Tino Borja MD LAB BLOOD ORDERABLES Final Resul t [facility] ([facility]) [address] [place] [address] * Lavender Top (03/09/2025 3:53 AM EDT) Only the most recent of3 resultswithin the time period is included. Extra Tube Hold for add-ons. 03/09/2025 6:[address] [facility] ([facility]) Comment:Auto resulted. Blood Venous blood specimen / Unknown Venipuncture / Unknown 03/09/2025 3:53 AM EDT 03/09/2025 4:32 AM EDT us Troy Agosto MD LAB BLOOD ORDERABLES Final Resul t [facility] ([place]) [address] [place] [address] * [facility] LOWER EXTREMITY SEGMENTAL MARVEL (03/08/2025 12:27 [...] with mild arterial occlusive disease left leg us Mattie Daniel WESTERN PHILOSOPHY PROFESSOR IMG CV VASCULAR PROCEDURES Final Result * ECG 12 lead (03/08/2025 9:45 AM EDT) Only the most recent of3 resultswithin the time period is included. Ventricular Rate 79 BPM GE MUSE QRS DURATION 126 ms [employer] MUSE QT Interval 410 ms [employer] MUSE QTC CALCULATION(BAZE TT) 470 ms GE MUSE R-[place] -11 degrees GE MUSE T Wave [place] 188 degrees GE MUSE 03/08/2025 9:29 AM [...] for LVH, may be normal variant ( [place] product ) Cannot rule out Septal infarct [...] - 7.6 mg/dL 03/08/2025 9:[address] [facility] ([facility]) Blood Venous blood specimen / Unknown Venipuncture / Unknown 03/08/2025 5:45 AM EDT 03/08/2025 5:50 AM EDT us Jose Vargas MD LAB BLOOD ORDERABLES Final Result Performing Organization Address City/[facility] Co de Phone Number [facility] ([facility]) [address] [place] [address] * Glucose 6 phosphate dehydrogenase (03/07/2025 12:32 PM EDT) Psdinqu-7-Lwpnqusk e Dehydrogenase 13.6 9.9 - 16.6 U/g Hb 03/10/2025 11:03 AM EDT [facility] ([facility]) Comment: Performed By: [employer] [address] [place] [address] Oral And Maxillofacial Surgery Resident: Leonardo Bustillo MD, PhD CLIA Number: [id number] Blood Venous blood specimen / Unknown Venipuncture / Unknown 03/07/2025 12:32 PM EDT 03/07/2025 12:54 PM EDT Tino Borja MD LAB BLOOD ORDERABLES Final Resul t Performing Organization Address City/[facility]/ZIP Co de Phone Number [facility] ([facility]) [address] [place] [phone] * Blood culture, peripheral #2 (03/07/2025 11:56 AM EDT) Only the most recent of2 resultswithin the time period is included. Blood Culture No growth at 5 days KYAW 03/12/2025 1:[address] [facility] ([facility]) Blood Venous blood specimen / Unknown Venipuncture / Unknown 03/07/2025 11:56 AM EDT 03/07/2025 12:16 PM EDT Troy Agosto MD LAB MICROBIOLOGY - GENERAL ORDER SHEILA Final Result Performing Organization Address City/[facility]/ZIP Co de Phone Number [facility] ([facility]) [address] [place], [place] [phone] * POCT glucose meter (03/07/2025 11:06 AM EDT) Only the most recent of6 resultswithin the time period is included. Glucose POC 103 70 - 105 mg/dL 03/07/2025 11:[address] [facility] ([facility]) Comment:[email or web address] Blood Capillary blood specimen / Unknown 03/07/2025 11:06 AM EDT 03/07/2025 11:16 AM EDT Narrative [facility] ([facility]) - 03/07/2025 11:16 AM EDT Waived Testing in the ED is performed under the ED CLIA certificate #[id number]. us Troy Agosto MD LAB BLOOD ORDERABLES Final Resul t [facility] ([facility]) [address] [place] [address] * US renal complete (03/07/2025 10:56 AM [...] resultswithin the time period is included. Pathologist [facility] High Sensitivity Troponin I 429(HH) <20 ng/L 03/07/2025 8:[address] [facility] ([facility]) Blood Venous blood specimen / Unknown Venipuncture / Unknown 03/07/2025 3:47 AM EDT 03/07/2025 3:58 AM EDT us Troy Agosto MD LAB BLOOD ORDERABLES Final Resul t [facility] ([facility]) [address] [place] [phone] * (ABNORMAL) Comprehensive metabolic panel (03/07/2025 3:47 AM EDT) Only the most recent of2 resultswithin the time period is included. Pathologist [facility] Sodium 138 136 - 145 mmol/L 03/07/2025 4:[address] [facility] ([facility]) Potassium 3.0(L) 3.5 - 5.1 mmol/L 03/07/2025 4:[address] [facility] ([facility]) Chloride 96(L) 98 - 107 mmol/L 03/07/2025 4:[address] [facility] ([facility]) CO2 30 21 - 31 mmol/L 03/07/2025 4:[address] [facility] ([facility]) Anion Gap 15 7 - 20 mmol/L 03/07/2025 4:29 AM [facility] ([facility]) BUN 86(H) 7 - 25 mg/dL 03/07/2025 4:29 AM [facility] ([facility]) Creatinine 3.18(H) 0.70 - 1.30 mg/dL 03/07/2025 4:29 AM [facility] ([facility]) BUN/Creatinine Ratio 27.0 02/15 4:29 AM [facility] ([facility]) Glucose 92 70 - 100 mg/dL 03/07/2025 4:29 AM [facility] ([facility]) Calcium 8.6 8.6 - 10.3 mg/dL 03/07/2025 4:29 AM [facility] ([facility]) AST 24 13 - 39 U/L 03/07/2025 4:29 AM [facility] ([facility]) ALT (SGPT) 13 7 - 52 U/L 03/07/2025 4:29 AM [facility] ([facility]) Alkaline Phosphatase 102 34 - 104 U/L 03/07/2025 4:29 AM [facility] ([facility]) Total Protein 6.2 6.0 - 8.3 g/dL 03/07/2025 4:29 AM [facility] ([facility]) Albumin 3.0(L) 3.5 - 5.7 g/dL 03/07/2025 4:29 AM [facility] ([facility]) Total Bilirubin 1.3(H) 0.3 - 1.0 mg/dL 03/07/2025 4:29 AM [facility] ([facility]) eGFR 18.6(L) >60.0 mL/min/1. 73m*2 03/07/2025 4:29 AM [facility] ([facility]) Comment:[facility] s estimated glomerular filtration rate [...] MD LAB BLOOD ORDERABLES Final Resul t [facility] ([facility]) [address] [place] [address] * (ABNORMAL) Urinalysis (03/06/2025 12:19 PM EDT) Color, Urine Colorless Colorless, Yellow, Light-Yellow 03/06/2025 12:[address] [facility] ([facility]) Clarity, Urine Clear Clear 03/06/2025 12:[address] [facility] ([facility]) pH, Urine 6.5 5.0 - 8.0 pH 03/06/2025 12:[address] [facility] ([facility]) Leukocytes, Urine Negative Negative 03/06/2025 12:[address] [facility] ([facility]) Nitrite, Urine Negative Negative 03/06/2025 12:[address] [facility] ([facility]) Protein, Urine Negative Negative mg/dL 03/06/2025 12:[address] [facility] ([facility]) Glucose, Urine Normal Normal mg/dL 03/06/2025 12:[address] [facility] ([facility]) Bilirubin, Urine Negative Negative 03/06/2025 12:[address] [facility] ([facility]) Specific [place], Urine 1.007(L) 1.010 - 1.030 03/06/2025 12:[address] [facility] ([facility]) Ketones, Urine Negative Negative mg/dL 03/06/2025 12:[address] [facility] ([facility]) Blood, Urine Negative Negative 03/06/2025 12:[address] [facility] ([place]) Urobilinogen, Urine Normal Normal mg/dL 03/06/2025 12:[address] [facility] ([facility]) Urine Urine specimen obtained by clean catch procedure / Unknown Non-blood Collection / Unknown 03/06/2025 12:19 PM EDT 03/06/2025 12:23 PM EDT Narrative [facility] ([facility]) - 03/06/2025 12:36 PM EDT Microscopics not performed on urines with negative chemical reactions unless requested on original order. us Carol Cohen MD LAB URINE ORDERABLES Fin al Result [facility] L[facility]) [address] [place] [address] * LIMITED ECHO (TTE) W/ LIMITED DOPPLER, COLOR FLOW AND IMAGING AGENT (03/06/2025 10:39 AM EDT) Anatomical Region Laterality Modality Other 03/06/2025 9:53 AM EDT Narrative 03/06/2025 4:26 PM EDT 1 1 [facility] Heart Station [address] [place] [address] (fax) Echocardiogram-[facility] Name: JOSÉ MIGUEL ANTONIO Study Date: 03/06/2025 09:53 AM B/P: 105 mmHg/70 mmHg HR: 98 bpm Date of : 1940 Location: [facility] Height: 72 in. Age: 85 year(s) [...] effusion is seen. Procedure Staff Reading Group: [facility] Referring Physician: FRANCISCA SERRANO [employer] Counselor: Janice Draper RDCS, RVT, RN, BSN Ordering Physician: TROY AGOSTO Procedure Note Taylor Kendall MD - 03/06/2025 1 1 [facility] [address] [place] [address] [phone] (fax) Echocardiogram-[facility] Name: JOSÉ MIGUEL ANTONIO Study Date: 03/06/2025 09:53 AM B/P: 105 mmHg/70 mmHg HR: 98 bpm Date of : 1940 Location: [facility] Height: 72 in. Age: 85 year(s) Patient Room: [facility] Weight: 176 lb. Gender: Male Patient Status: [...] effusion is seen. Procedure Staff Reading Group: [facility] Referring Physician: FRANCISCA SERRANO [employer] Counselor: Janice Draper RDCS, RVT, RN, BSN Ordering Physician: TROY AGOSTO us Troy Agosto MD CV ECHO PROCEDURES Final Result * (ABNORMAL) Iron and TIBC (03/06/2025 8:35 AM EDT) Iron 19(L) 50 - 212 ug/dL 03/06/2025 10:27 AM EDT [facility] ([facility]) TIBC 218(L) 250 - 450 ug/dL 03/06/2025 10:[address] [facility] ([facility]) Iron Saturation 9(L) 20 - 50 % 10:[address] [facility] ([facility]) UIBC 199.0 155.0 - 355.0 ug/dL 03/06/2025 10:[address] [facility]) Blood Venous blood specimen / Unknown Venipuncture / Unknown 03/06/2025 8:35 AM EDT 03/06/2025 8:56 AM EDT us Tino Borja MD LAB BLOOD ORDERABLES Final Resul t [facility]) [address] [place] [id number] * (ABNORMAL) PTH, intact (03/06/2025 8:35 AM EDT) PTH 134(H) 12 - 88 pg/mL 03/06/2025 10:55 AM EDT [facility]) Blood Venous blood specimen / Unknown Venipuncture / Unknown 03/06/2025 8:35 AM EDT 03/06/2025 8:56 AM EDT us Tino Borja MD LAB BLOOD ORDERABLES Final Resul t [facility]) [address] [place] [address] * Ferritin (03/06/2025 8:35 AM EDT) Ferritin 141.0 24.0 - 336.0 ng/mL 03/06/2025 10:55 AM EDT [facility]) Blood Venous blood specimen / Unknown Venipuncture / Unknown 03/06/2025 8:35 AM EDT 03/06/2025 8:56 AM EDT us Tino Borja MD LAB BLOOD ORDERABLES Final Resul t [facility] ([place]) [address] [place] [address] * TSH3 Reflex to FT4 (03/05/2025 11:19 PM EDT) TSH 1.69 0.34 - 5.60 mIU/L 03/06/2025 12:[address] [facility] ([place]) Blood Venous blood specimen / Unknown Venipuncture / Unknown 03/05/2025 11:19 PM EDT 03/05/2025 11:26 PM EDT Carol Cohen MD LAB BLOOD ORDERABLES Fin al Result Performing Organization Address City/[facility]/ZIP Co de Phone Number [facility] ([place]) [address] [place] [address] * XR chest 1 view (03/05/2025 10:33 [...] disease likely atelectasis. Electronically signed: Araceli Fuller. us Carol Cohen MD IMG XR PROCEDURES Final Result * (ABNORMAL) Phosphorus (03/05/2025 9:48 PM EDT) Phosphorus 5.9(H) 2.5 - 5.0 mg/dL 03/05/2025 10:[address] [facility] ([facility]) Blood Venous blood specimen / Unknown Venipuncture / Unknown 03/05/2025 9:48 PM EDT 03/05/2025 9:59 PM EDT Carol Cohen MD LAB BLOOD ORDERABLES Fin al Result [facility] ([facility]) [address] [place] [address] * (ABNORMAL) B-type natriuretic peptide (03/05/2025 9:48 PM EDT) Pathologist [facility] BNP 4,437(H) 0 - 100 pg/mL 03/05/2025 10:[address] [facility] ([facility]) Blood Venous blood specimen / Unknown Venipuncture / Unknown 03/05/2025 9:48 PM EDT 03/05/2025 9:59 PM EDT Carol Cohen MD LAB BLOOD ORDERABLES Fin al Result [facility] ([facility]) [address] [place], [place] [id number] * Hemoglobin A1c (10/04/2024 3:08 AM EST) Hemoglobin A1C 5.6 4.0 - 6.0 % 10/05/2024 11:[address] [facility] ([facility]) Estimated Average Glucose 114 mg/dL 10/05/2024 11:[address] [facility] ([facility]) Blood Venous blood specimen / Unknown Arterial Line / Unknown 10/04/2024 3:08 AM EST 10/04/2024 3:56 AM EST us Chaim Cabrera MD LAB BLOOD ORDERABLES Final Resu lt [facility] ([facility]) [address] [place], [place] [phone] from Last 3 Months or Most Recently Relevant to Health Maintenance Insurance MEDICARE Member Subscriber Plan / Payer (Ef fective 2011-Present) Name:José Miguel Antonio Member ID:[id number] Relation to Subscriber:Self Name:José Miguel Antonio Subscriber ID:[id number] Payer ID:[id number] Group ID:Not on file Type:Medicare Address: [facility] [place] [id number] [employer] Advance Directives * Full Code (Latest Code [...] 1:34 PM 09/29/2023 8:52 PM Care Teams Esthetician And Manager Medical Spa Relationship Specialty Start Date End Date Francisca Serrano MD [address] [facility] [address] [address] PCP - General 05/16/22
--- OUTSIDE RECORDS SUMMARY | 2025-05-12 14:02 | XMS_ITS | Encounter Summary ---
Author Organization [facility] Address [address] [place] [address] Care Team Providers Care Surveyor Geophysical Prospecting Name Role Phone Samm Serrano MD Primary Care Provider [phone] Tom Gonzalez Unavailable [phone] Andreas Pierre MD Unavailable Virgil Carrillo MD Unavailable Jethro Mendoza MD Unavailable Isaías Kinney MD Unavailable [phone] Source Comments In the event this information is protected by the Federal Confidentiality of Alcohol and Drug AbusePatient Records regulations: The Federal rules restrict any use of the information to criminally investigate or prosecute any alcohol or drug abuse patient.[facility] Encounter Details Date Type Department Care Team (Late st Contact Info) Description 11/28/2022 Patient Msg Cardiology [address] [place] [address] Provider, Ccf Appointment Cancellation Request Social History [...] N ot on file 10/01/2022 Data from: [email or web address] 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 [facility] [place] [phone] Primary Staff Physician Cardiology 04/26/23 Virgil Carrillo MD [address] [place] [phone] Primary Staff Physician Cardiology 10/29/23 Jethro Mendoza MD [address] [place] [address] Primary Staff Physician Cardiology 12/26/23 Isaías Kinney MD [address] [place] [address] Primary Staff Physician Cardiology 01/10/24 documented as of this encounter
--- OUTSIDE RECORDS SUMMARY | 2025-05-12 14:02 | XMS_ITS | Encounter Summary ---
Author Organization [facility] Address [address] [place] [address] Care Team Providers Care Warehouse Distribution Specialist Name Role Phone Samm Serrano MD Primary Care Provider +[phone] Inocencio Falk DO Unavailable [phone] Tom Gonzalez Unavailable [phone] Andreas Pierre MD Unavailable Virgil Carrillo MD Unavailable Jetrho Mendoza MD Unavailable Isaías Kinney MD Unavailable [phone] Source Comments In the event this information is protected by the Federal Confidentiality of Alcohol and Drug AbusePatient Records regulations: The Federal rules restrict any use of the information to criminally investigate or prosecute any alcohol or drug abuse patient.[facility] Encounter Details Date Type Department Care Team (Late st Contact Info) Description 11/21/2012 Patient Msg Medical Records [address] [place] [address] Provider, Ccf RE: Appointment Cancellation Request Social [...] 10:00 AM EDT Office Visit Cardiology [address] [place] [address] Isaías Kinney MD [address] [place] [address] DX: Chronic diastolic heart failure 09/20/2025 8:15 AM EST Procedure Cardiology [address] [place] [address] Dx. Atherosclerotic heart disease of [place] coronary artery with other forms of angina pectoris 09/20/2025 9:00 AM EST Appointment Cardiology [address] [place] [address] Dx. Atherosclerotic heart disease of [place] coronary artery with other forms of angina pectoris 09/20/2025 9:45 AM EST Office Visit Cardiology [address] [place] [address] Nj Wei MD [address] [place] [address] Dx. Atherosclerotic heart disease of [place] coronary artery with other forms of angina pectoris documented as of this encounter Visit Diagnoses Not on filedocumented in this encounter Care Teams Warehouse Distribution Specialist Relationship Specialty Start Date End Date Samm Serrano MD PCP - General Family Medicine 05/30/12 Inocencio Falk DO [address] [place] [address] Primary Staff Physician Cardiology 12/15/14 Tom Gonzalez [address] [facility] [place] [address] Primary Staff Physician Cardiology 12/02/18 Andreas Pierre MD [address] [place] [address] Primary Staff Physician Cardiology 04/26/23 Virgil Carrillo MD [address] [place] [address] Primary Staff Physician Cardiology 10/29/23 Jethro Mendoza MD [address] [place] [address] Primary Staff Physician Cardiology 12/26/23 Isaías Kinney MD [address] [place], [place] [address] Primary Staff Physician Cardiology 01/10/24 documented as of this encounter
--- OUTSIDE RECORDS SUMMARY | 2025-05-12 14:02 | XMS_ITS | Encounter Summary ---
Author Organization [facility] Address [address] [place] [address] Care Team Providers Care Special Programs Director Name Role Phone Samm Serrano MD Primary Care Provider +[phone] Tom Gonzalez Unavailable [phone] Andreas Pierre MD Unavailable Virgil Carrillo MD Unavailable Jethro Mendoza MD Unavailable Isaías Kinney MD Unavailable [phone] Source Comments In the event this information is protected by the Federal Confidentiality of Alcohol and Drug AbusePatient Records regulations: The Federal rules restrict any use of the information to criminally investigate or prosecute any alcohol or drug abuse patient.[facility] Encounter Details Date Type Department Care Team (Late st Contact Info) Description 11/28/2022 Patient Msg Vascular Surg Dept [address] [place] [address] Tiarra Lopez APRN.ECONOMIST RESEARCH ASSISTANT [address] [phone] Appointment Cancellation Request Social History Tobacco Use [...] N ot on file 10/01/2022 Data from: https://www.neighborhoodatlas.medicine.[facility].edu/. Last address used for calculation [...] 10:00 AM EDT Office Visit Cardiology [address] [place] [address] Isaías Kinney MD [address] [phone] DX: Chronic diastolic heart failure 09/20/2025 8:15 AM EST Procedure Cardiology [address] [place] [address] 235[address] Dx. Atherosclerotic heart disease of [place] coronary artery with other forms of angina pectoris 09/20/2025 9:00 AM EST Appointment Cardiology [address] [place] [address] Dx. Atherosclerotic heart disease of [place] coronary artery with other forms of angina pectoris 09/20/2025 9:45 AM EST Office Visit Cardiology [address] [place] [address] Nj Wei MD [address] [place] [address] Dx. Atherosclerotic heart disease of [place] coronary artery with other forms of angina pectoris documented as of this encounter Visit Diagnoses Not on filedocumented in this encounter Care Teams Special Programs Director Relationship Specialty Start Date End Date Samm Serrano MD PCP - General Family Medicine 05/30/12 Tom Gonzalez [address] [facility] [place] [address] Primary Staff Physician Cardiology 12/02/18 Anderas Pierre MD [address] [facility] [place] [place] [address] Primary Staff Physician Cardiology 04/26/23 Virgil Carrillo MD [address] [place] [address] Primary Staff Physician Cardiology 10/29/23 Jethro Mendoza MD [address] [facility] [place] [address] Primary Staff Physician Cardiology 12/26/23 Isaías Kinney MD [address] [place] [address] Primary Staff Physician Cardiology 01/10/24 documented as of this encounter
--- OUTSIDE RECORDS SUMMARY | 2025-05-12 14:02 | XMS_ITS | Encounter Summary ---
Author Organization [facility] Address [address] [place] [address] Care Team Providers Care Environmental Services Associate Name Role Phone Samm Serrano MD Primary Care Provider [phone] Inocencio Falk DO Unavailable [phone] Tom Gonzalez Unavailable [phone] Andreas Pierre MD Unavailable Virgil Carrillo MD Unavailable Jethro Mendoza MD Unavailable Isaías Kinney MD Unavailable [phone] Source Comments In the event this information is protected by the Federal Confidentiality of Alcohol and Drug AbusePatient Records regulations: The Federal rules restrict any use of the information to criminally investigate or prosecute any alcohol or drug abuse patient.[facility] Encounter Details Date Type Department Care Team (Late st Contact Info) Description 06/09/2013 Patient Msg Medical Records [address] [place] [address] Provider, Ccf Request an Appointment Social History [...] 10:00 AM EDT Office Visit Cardiology [address] [place] [address] Isaías Kinney MD [address] [place] [address] DX: Chronic diastolic heart failure 09/20/2025 8:15 AM EST Procedure Cardiology [address] [place] [address] Dx. Atherosclerotic heart disease of [place] coronary artery with other forms of angina pectoris 09/20/2025 9:00 AM EST Appointment Cardiology [address] [place] [address] Dx. Atherosclerotic heart disease of [place] coronary artery with other forms of angina pectoris 09/20/2025 9:45 AM EST Office Visit Cardiology [address] [place] [address] Nj Wei MD [address]00 [place] [address] Dx. Atherosclerotic heart disease of [place] coronary artery with other forms of angina pectoris documented as of this encounter Visit Diagnoses Not on filedocumented in this encounter Care Teams Environmental Services Associate Relationship Specialty Start Date End Date Samm Serrano MD PCP - General Family Medicine 05/30/12 Inocencio Falk DO [address] [place] [address] Primary Staff Physician Cardiology 12/15/14 Tom Gonzalez [address] [place] [address] Primary Staff Physician Cardiology 12/02/18 Andreas Pierre MD [address] [facility] [address] Primary Staff Physician Cardiology 04/26/23 Virgil Carrillo MD [address] [place], [place] [phone] Primary Staff Physician Cardiology 10/29/23 Jethro Mendoza MD [address] [place] [address] Primary Staff Physician Cardiology 12/26/23 Isaísa Kinney MD [address] [place] [address] Primary Staff Physician Cardiology 01/10/24 documented as of this encounter
--- OUTSIDE RECORDS SUMMARY | 2025-05-12 14:02 | XMS_ITS | Encounter Summary ---
Author Organization [facility] Address [address] [place] [address] Care Team Providers Care Irrigation Tax Assessor Collector Name Role Phone Samm Serrano MD Primary Care Provider +4 Tom Gonzalez Unavailable [phone] Andreas Pierre MD Unavailable Virgil Carrillo MD Unavailable Jethro Mendoza MD Unavailable Isaías Kinney MD Unavailable [phone] Source Comments In the event this information is protected by the Federal Confidentiality of Alcohol and Drug AbusePatient Records regulations: The Federal rules restrict any use of the information to criminally investigate or prosecute any alcohol or drug abuse patient.[facility] Encounter Details Date Type Department Care Team (Late st Contact Info) Description 09/28/2023 DOWNTIME NOTICE [facility] [place] [address] Note, Interface Social History Tobacco Use Types [...] lower risk 3 04/02/2023 Data from: https://www.neigh borhoodatlas.medicine.[facility]/. Last address used for [...] 06/30/2025 10:00 AM EDT Office Visit Cardiology [address] [place], [place] [phone] Isaías Kinney MD [address] [phone] DX: Chronic diastolic heart failure 09/20/2025 8:15 AM EST Procedure Cardiology [address] [place] [address] Dx. Atherosclerotic heart disease of [place] coronary artery with other forms of angina pectoris 09/20/2025 9:00 AM EST Appointment Cardiology [address] [place], [place] [phone] Dx. Atherosclerotic heart disease of [place] coronary artery with other forms of angina pectoris 09/20/2025 9:45 AM EST Office Visit Cardiology [address] [place] [address] Nj Wei MD [address] [place] [address] Dx. Atherosclerotic heart disease of [place] coronary artery with other forms of angina pectoris documented as of this encounter Visit Diagnoses Not on filedocumented in this encounter Care Teams Irrigation Tax Assessor Collector Relationship Specialty Start Date End Date Samm Serrano MD PCP - General Family Medicine 05/30/12 Tom Gonzalez 272 [facility] [place] [address] Primary Staff Physician Cardiology 12/02/18 Andreas Pierre MD [address] [place] [address] Primary Staff Physician Cardiology 04/26/23 Virgil Carrillo MD [address] [place] [address] Primary Staff Physician Cardiology 10/29/23 Jethro Mendoza MD [address] [place] [address] Primary Staff Physician Cardiology 12/26/23 Isaías Kinney MD [address] [place] [address] Primary Staff Physician Cardiology 01/10/24 documented as of this encounter
--- OUTSIDE RECORDS SUMMARY | 2025-05-12 14:02 | XMS_ITS | Encounter Summary ---
Author Organization [facility] Address [address] [place] [address] Care Team Providers Care Chaplain Name Role Phone Samm Serrano MD Primary Care Provider [phone] Reason for Visit * Reason Comments Med Refill Encounter Details Date Type Department Care Team (Late st Contact Info) Description 07/05/2023 Refill [facility] Heart at [facility] [address] [place] [address] Ozzie Crain MD [address] [facility] [address] [place] [address] Coronary artery disease, unspecified vessel or lesion type, unspecified whether angina present, unspecified whether [place] or transplanted heart; Carotid stenosis, asymptomatic, left; 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 ([facility]) Social History Tobacco Use Types Packs/Day Years [...] Description 06/21/2025 3:15 PM EDT Office Visit [facility] Heart at [facility] [address] [place] [phone] Ozzie Crain MD [address] [place] [phone] documented as of this encounter Visit Diagnoses Diagnosis Coronary artery disease, unspecified vessel or lesion type, unspecified whether angina present, unspecified whether [place] or transplanted heart Carotid stenosis, asymptomatic, left 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
--- OUTSIDE RECORDS SUMMARY | 2025-05-12 14:02 | XMS_ITS | Encounter Summary ---
Author Organization [facility] Address [address] [place] [address] Care Team Providers Care Supervisor Print Line Name Role Phone Samm Serrano MD Primary Care Provider [phone] Inocencio Falk DO Unavailable [phone] Tom Gonzalez Unavailable [phone] Andreas Pierre MD Unavailable Virgil Carrillo MD Unavailable Jethro Mendoza MD Unavailable Isaías Kinney MD Unavailable [phone] Source Comments In the event this information is protected by the Federal Confidentiality of Alcohol and Drug AbusePatient Records regulations: The Federal rules restrict any use of the information to criminally investigate or prosecute any alcohol or drug abuse patient.[facility] Encounter Details Date Type Department Care Team (Late st Contact Info) Description 06/09/2013 Patient Msg Medical Records [address] [place] [address] Provider, Ccf RE: Request an Appointment Social [...] 06/30/2025 10:00 AM EDT Office Visit Cardiology [address] [place] [address] Isaías Kinney MD [address] [place] [address] DX: Chronic diastolic heart failure 09/20/2025 8:15 AM EST Procedure Cardiology [address] [place] [address] Dx. Atherosclerotic heart disease of [place] coronary artery with other forms of angina pectoris 09/20/2025 9:00 AM EST Appointment Cardiology [address] [place] [address] Dx. Atherosclerotic heart disease of [place] coronary artery with other forms of angina pectoris 09/20/2025 9:45 AM EST Office Visit Cardiology [address] [place] [address] Nj Wei MD [address] [place] [address] Dx. Atherosclerotic heart disease of [place] coronary artery with other forms of angina pectoris documented as of this encounter Visit Diagnoses Not on filedocumented in this encounter Care Teams Supervisor Print Line Relationship Specialty Start Date End Date Samm Serrano MD PCP - General Family Medicine 05/30/12 Inocencio Falk DO [address] [place] [address] Primary Staff Physician Cardiology 12/15/14 Tom Gonzalez [address] [place] [address] Primary Staff Physician Cardiology 12/02/18 Andreas Pierre MD [address] [place] [address] Primary Staff Physician Cardiology 04/26/23 Virgil Carrillo MD [address] [place] [address] Primary Staff Physician Cardiology 10/29/23 Jethro Mendoza MD [address] [place] [address] Primary Staff Physician Cardiology 12/26/23 Isaías Kinney MD [address] [place] [address] Primary Staff Physician Cardiology 01/10/24 documented as of this encounter
--- OUTSIDE RECORDS SUMMARY | 2025-05-12 14:02 | XMS_ITS | Encounter Summary ---
Author Organization [facility] Address [facility] [id number] [address] [place] [address] Care Team Providers Care Installer Inspector Final Name Role Phone Samm Serrano MD Primary Care Provider +-[phone] Encounter Details Date Type Department Care Team (Late st Contact Info) Description 07/14/2021 Orders Only [facility] [address] [place] [phone] Arelis Callejas Pro[place] cancer [place] Social History Tobacco Use Types Packs/Day Years [...] prostate documented in this encounter Care Teams Installer Inspector Final Relationship Specialty Start Date End Date Samm Serrano MD PCP - General Family Medicine 02/26/24 documented as of this encounter
--- OUTSIDE RECORDS SUMMARY | 2025-05-12 14:03 | XMS_ITS | Encounter Summary ---
Author Organization [facility] Address [address] [place] [address] Care Team Providers Care Sanitation Worker Cleaning Machinery Name Role Phone Samm Serrano MD Primary Care Provider +-[phone] Tom Gonzalez Unavailable [phone] Andreas Pierre MD Unavailable Virgil Carrillo MD Unavailable Jethro Mendoza MD Unavailable Isaías Kinney MD Unavailable [phone] Source Comments In the event this information is protected by the Federal Confidentiality of Alcohol and Drug AbusePatient Records regulations: The Federal rules restrict any use of the information to criminally investigate or prosecute any alcohol or drug abuse patient.[facility] Encounter Details Date Type Department Care Team (Late st Contact Info) Description 03/03/2025 Get Medical Advice Cardiology [address] [place] [address] Isaías Kinney MD [address] [place] [address] Urgent Social History Tobacco Use Types Packs/Day Years Used Date Smoking Tobacco: Former Cigarettes 1 10 0 04/28/1972 - 04/28/1982 Pipe Passive Smoke Exposure: Never Smokeless Tobacco: Never Alcohol Use Standard Drinks/Week Comments Not Currently 0 (1 standard drink = 0.6 oz pur e alcohol) rarely [facility] Utilities Answer Date Recorded In the [...] is lower risk 3 02/05/2024 Data from: https://www.neighborhoodatlas.medicine.[facility].edu/. Last address used for calculation [address] [place] [address] [address] 02/05/2024 Sex and Gender Information [...] 10:00 AM EDT Office Visit Cardiology [address] [place] [address] Isaías Kinney MD [address] [place] [address] DX: Chronic diastolic heart failure 09/20/2025 8:15 AM EST Procedure Cardiology [address] [place] [address] Dx. Atherosclerotic heart disease of [place] coronary artery with other forms of angina pectoris 09/20/2025 9:00 AM EST Appointment Cardiology [address] [place] [address] Dx. Atherosclerotic heart disease of [place] coronary artery with other forms of angina pectoris 09/20/2025 9:45 AM EST Office Visit Cardiology [address] [place] [address] Nj Wei MD [address] [place] [address] Dx. Atherosclerotic heart disease of [place] coronary artery with other forms of angina pectoris documented as of this encounter Goals Goal Patient Goal Type Associated Problems Recent Progress Patient-Stated? Author Blood Pressure < 130/80 Blood Pressure 134/63( 025 3:00 PM EDT) No Lidia Lo, ARIES documented as of this encounter Visit Diagnoses Not on filedocumented in this encounter Care Teams Sanitation Worker Cleaning Machinery Relationship Specialty Start Date End Date Samm Serrano MD PCP - General Family Medicine 05/30/12 Tom Gonzalez [address] [facility] [place] [address] Primary Staff Physician Cardiology 12/02/18 Andreas Pierre MD [address] [place] [address] Primary Staff Physician Cardiology 04/26/23 Virgil Carrillo MD [address] [place] [address] Primary Staff Physician Cardiology 10/29/23 Jethro Mendoza MD [address] [place] [address] Primary Staff Physician Cardiology 12/26/23 Isaías Kinney MD [address] [place] [address] Primary Staff Physician Cardiology 01/10/24 documented as of this encounter
--- OUTSIDE RECORDS SUMMARY | 2025-05-12 14:03 | XMS_ITS | Encounter Summary ---
Author Organization [facility] Address [address] [place] [address] Care Team Providers Care Historian Research Assistant Name Role Phone Samm Serrano MD Primary Care Provider +-4 Tom Gonzalez Unavailable [phone] Andreas Pierre MD Unavailable Virgil Carrillo MD Unavailable Jethro Mendoza MD Unavailable Isaías Kinney MD Unavailable [phone] Source Comments In the event this information is protected by the Federal Confidentiality of Alcohol and Drug AbusePatient Records regulations: The Federal rules restrict any use of the information to criminally investigate or prosecute any alcohol or drug abuse patient.[facility] Encounter Details Date Type Department Care Team (Late st Contact Info) Description 08/14/2024 Patient Msg Cardiology [address] [place] [address] Isaías Kinney MD [address] [place] [address] Eliqufreddie Social History Tobacco Use Types Packs/Day Years [...] risk 3 02/05/2024 Data from: https://www.neighborhoodatlas.medicine.[facility].edu/. Last address used for calculation [address] 02/05/2024 Sex and Gender [...] 10:00 AM EDT Office Visit Cardiology [address] [place] [address] Isaías Kinney MD [address] [place] [address] DX: Chronic diastolic heart failure 09/20/2025 8:15 AM EST Procedure Cardiology [address] [place] [address] Dx. Atherosclerotic heart disease of [place] coronary artery with other forms of angina pectoris 09/20/2025 9:00 AM EST Appointment Cardiology [address] [place] [address] Dx. Atherosclerotic heart disease of [place] coronary artery with other forms of angina pectoris 09/20/2025 9:45 AM EST Office Visit Cardiology [address] [place] [address] Nj Wei MD [address] [place] [address] Dx. Atherosclerotic heart disease of [place] coronary artery with other forms of angina pectoris documented as of this encounter Goals Goal Patient Goal Type Associated Problems Recent Progress Patient-Stated? Author Blood Pressure < 130/80 Blood Pressure 134/63( 025 3:00 PM EDT) No Lidia Lo, ARIES documented as of this encounter Visit Diagnoses Not on filedocumented in this encounter Care Teams Historian Research Assistant Relationship Specialty Start Date End Date Samm Serrano MD PCP - General Family Medicine 05/30/12 Tom Gonzalez [address] [place] [address] Primary Staff Physician Cardiology 12/02/18 Andreas Pierre MD [address] [place] [address] Primary Staff Physician Cardiology 04/26/23 Virgil Carrillo MD [address] [place] [address] Primary Staff Physician Cardiology 10/29/23 Jethro Mendoza MD [address] [place] [address] Primary Staff Physician Cardiology 12/26/23 Isaías Kinney MD [address] [place] [address] Primary Staff Physician Cardiology 01/10/24 documented as of this encounter
--- OUTSIDE RECORDS SUMMARY | 2025-05-12 14:03 | XMS_ITS | Encounter Summary ---
Author Organization [facility] Address [address] [place] [address] Care Team Providers Care Record Press Tender Name Role Phone Samm Serrano MD Primary Care Provider [phone] Tom Gonzalez Unavailable [phone] Andreas Pierre MD Unavailable Virgil Carrillo MD Unavailable Jethro Mendoza MD Unavailable Isaías Kinney MD Unavailable [phone] Source Comments In the event this information is protected by the Federal Confidentiality of Alcohol and Drug AbusePatient Records regulations: The Federal rules restrict any use of the information to criminally investigate or prosecute any alcohol or drug abuse patient.[facility] Encounter Details Date Type Department Care Team (Late st Contact Info) Description 06/01/2024 Get Medical Advice Cardiology [address] [place] [address] Isaías Kinney MD [address] [place] [address] lab results from outside lab Social History Tobacco Use Types Packs/Day Years Used Date Smoking Tobacco: Former Cigarettes 1 10 0 04/28/1972 - 04/28/1982 Pipe Passive Smoke Exposure: Never Smokeless Tobacco: Never Alcohol Use Standard Drinks/Week Comments Yes 0 (1 standard drink = 0.6 oz pur e alcohol) rarely [facility] Utilities Answer Date Recorded In the [...] or living in a alf (including now)? No 05/11/2024 Area Deprivation Index Answer Date Rich rded National Score (1-100), lower number is lower ri sk 52 02/05/2024 State Score (1-10), lower number is lower risk 3 02/05/2024 Data from: https://www.neighborhoodatlas.medicine.[facility].edu/. Last address used for calculation [address] 02/05/2024 Sex and Gender Information [...] 10:00 AM EDT Office Visit Cardiology [address] [place] [address] Isaías Kinney MD [address] [place] [address] DX: Chronic diastolic heart failure 09/20/2025 8:15 AM EST Procedure Cardiology [address] [place] [address] Dx. Atherosclerotic heart disease of [place] coronary artery with other forms of angina pectoris 09/20/2025 9:00 AM EST Appointment Cardiology [address] [place] [address] Dx. Atherosclerotic heart disease of [place] coronary artery with other forms of angina pectoris 09/20/2025 9:45 AM EST Office Visit Cardiology [address] [place] [address] Nj Wei MD [address] [place] [address] Dx. Atherosclerotic heart disease of [place] coronary artery with other forms of angina pectoris documented as of this encounter Goals Goal Patient Goal Type Associated Problems Recent Progress Patient-Stated? Author Blood Pressure < 130/80 Blood Pressure 134/63( 025 3:00 PM EDT) No Lidia Lo, ARIES documented as of this encounter Visit Diagnoses Not on filedocumented in this encounter Care Teams Record Press Tender Relationship Specialty Start Date End Date Samm Serrano MD PCP - General Family Medicine 05/30/12 Tom Gonzalez [address] [place] [address] Primary Staff Physician Cardiology 12/02/18 Andreas Pierre MD [address] [place] [address] Primary Staff Physician Cardiology 04/26/23 Virgil Carrillo MD [address] [place] [address] Primary Staff Physician Cardiology 10/29/23 Jethro Mendoza MD [address] [place] [address] Primary Staff Physician Cardiology 12/26/23 Isaías Kinney MD [address] [place] [address] Primary Staff Physician Cardiology 01/10/24 documented as of this encounter
--- OUTSIDE RECORDS SUMMARY | 2025-05-12 14:03 | XMS_ITS | Encounter Summary ---
Author Organization [facility] [address] s tem Address [id number] [address] [place] [address] Care Team Providers Care Conservator Artifacts Name Role Phone Samm Serrano MD Primary Care Provider [phone] Encounter Details Date Type Department Care Team (Late st Contact Info) Description 04/13/[address] [facility] - Lab [address] [place] [id number] Samm Serrano MD [address] [place] [address] Hyperkalemia; Non-ST elevation (NSTEMI) myocardial infarction ([facility]); Heart failure, unspecified ([facility]) Social History Tobacco Use Types Packs/Day [...] How often do you attend chur or rastafarian services? Never 08/17/2021 Do you belong to any clubs o r organizations such as restorationist groups, unions, fraternal or athletic groups, or [...] Answer Date Recorded Total Score 0 08/17/2021 [facility] - Occupational Stress [...] Recorded Do you need help finding a [facility] and/or a training program? No [...] - 3.90 pg/mL 04/13/2025 7:03 PM EDT [facility] Blood Venous blood / Unknown 04/13/2025 1:27 PM EDT 04/13/2025 1:55 PM EDT us Samm Serrano MD LAB BLOOD ORDERABLES Final Resu lt [facility] [address] [place] [address], [place] [phone] * Thyroid profile includes TSH FT4 (04/13/2025 1:27 PM EDT) FREE T4 1.33 0.61 - 1.60 ng/dL 04/13/2025 2:34 PM EDT [facility] TSH 0.59 0.49 - 4.67 uIU/mL 04/13/2025 2:34 PM EDT [facility] Blood Venous blood / Unknown 04/13/2025 1:27 PM EDT 04/13/2025 1:55 PM EDT us Samm Serrano MD LAB BLOOD ORDERABLES Final Resu lt [facility] [address] [place] [address], [place] * Magnesium (04/13/2025 1:27 PM EDT) MAGNESIUM 2.5 1.8 - 2.6 mg/dL 04/13/2025 2:12 PM EDT [facility] Blood Venous blood / Unknown 04/13/2025 1:27 PM EDT 04/13/2025 1:55 PM EDT us Samm Serrano MD LAB BLOOD ORDERABLES Final Resu lt [facility] [address] [place] [address], [place] * (ABNORMAL) Iron and TIBC (04/13/2025 1:27 PM EDT) IRON 46(L) 50 - 212 ug/dL 04/13/2025 7:05 PM EDT [facility] TRANSFERRIN 204 168 - 336 mg/dL 04/13/2025 7:05 PM EDT [facility] IRON BINDING 286 250 - 425 ug/dL 04/13/2025 7:05 PM EDT [facility] IRON SATURATION 16(L) 20 - 50 % SATURATION 04/13/2025 7:05 PM EDT [facility] Blood Venous blood / Unknown 04/13/2025 1:27 PM EDT 04/13/2025 1:55 PM EDT us Samm Serrano MD LAB BLOOD ORDERABLES Final Resu lt [facility] [address] [place] [address], [place] [phone] * (ABNORMAL) CBC auto differential (04/13/2025 1:27 PM EDT) WBC 4.4 4 - 11 x10E9/L 04/13/2025 2:00 PM EDT [facility] RBC Count 3.66(L) 4.1 - 5.7 X10E12/L 04/13/2025 2:00 PM EDT [facility] Hemoglobin 11.3(L) 13 - 17 g/dL 04/13/2025 2:00 PM EDT [facility] Hematocrit 33.3(L) 39 - 50 % 04/13/2025 2:00 PM EDT [facility] MCV 91 80 - 100 fL 04/13/2025 2:00 PM EDT [facility] MCH 30.9 27 - 34 pg 04/13/2025 2:00 PM EDT [facility] MCHC 33.9 32 - 36 g/dL 04/13/2025 2:00 PM EDT [facility] RDW 17.0(H) 11.5 - 15 % 04/13/2025 2:00 PM EDT [facility] Platelet Count 164 150 - 450 X10E9/L 04/13/2025 2:00 PM EDT [facility] MPV 7.8 7 - 12 fL 04/13/2025 2:00 PM EDT [facility] Neutrophils % 60.4 % 04/13/2025 2:00 PM EDT [facility] Lymphocytes % 16.3 % 04/13/2025 2:00 PM EDT [facility] Monocytes % 12.9 % 04/13/2025 2:00 PM EDT [facility] Eosinophils % 9.6 % 04/13/2025 2:00 PM EDT [facility] Basophils % 0.8 % 04/13/2025 2:00 PM EDT [facility] Neutrophils Absolute (A) 2.7 1.5 - 6.6 10*3/uL 04/13/2025 2:00 PM EDT [facility] Lymphocytes Absolute 0.7(L) 1.0 - 3.5 10*3/uL 04/13/2025 2:00 PM EDT [facility] Monocytes Absolute 0.6 0.0 - 0.9 10*3/uL 04/13/2025 2:00 PM EDT [facility] Eosinophils Absolute 0.4 0.0 - 0.4 10*3/uL 04/13/2025 2:00 PM EDT [facility] Basophils Absolute 0.0 0.0 - 0.2 10*3/uL 04/13/2025 2:00 PM EDT [facility] Differential Type AUTOMATED DIFFERENTIAL 04/13/2025 2:00 PM EDT [facility] Blood Venous blood / Unknown 04/13/2025 1:27 PM EDT 04/13/2025 1:55 PM EDT us Samm Serrano MD LAB BLOOD ORDERABLES Final Resu lt Performing Organization Address [facility]/ZIP Co de Phone Number [address] [place] [address], [place] * (ABNORMAL) B-type natriuretic peptide (04/13/2025 1:27 PM EDT) BNP 2,618(H) <=100 pg/mL 04/13/2025 2:29 PM EDT [facility] Blood Venous blood / Unknown 04/13/2025 1:27 PM EDT 04/13/2025 1:55 PM EDT us Samm Serrano MD LAB BLOOD ORDERABLES Final Resu lt [address] [place] [address], [place] * (ABNORMAL) Basic Metabolic Panel (04/13/2025 1:27 PM EDT) SODIUM 134 134 - 146 mmol/L 04/13/2025 2:12 PM EDT [facility] POTASSIUM 4.0 3.5 - 5.0 mmol/L 04/13/2025 2:12 PM EDT [facility] CHLORIDE 106 98 - 109 mmol/L 04/13/2025 2:12 PM EDT [facility] CARBON DIOXIDE 24 22 - 32 mmol/L 04/13/2025 2:12 PM EDT [facility] ANION GAP 4(L) 5 - 15 mmol/L 04/13/2025 2:12 PM EDT [facility] BLOOD UREA NITROGEN 42(H) 5 - 27 mg/dL 04/13/2025 2:12 PM EDT [facility] CREATININE 2.04(H) 0.70 - 1.20 mg/dL 04/13/2025 2:12 PM EDT [facility] Comment:METHOD TRACEABLE TO IDMS STANDARD GLUCOSE 93 65 - 99 mg/dL 04/13/2025 2:12 PM EDT [facility] CALCIUM 8.7 8.5 - 10.5 mg/dL 04/13/2025 2:12 PM EDT [facility] EGFR Non-Race Dependent 32(L) >=60 ml/min/1.7 3sq.m 04/13/2025 2:12 PM EDT [facility] Comment: eGFR not reported due to non-numeric value for Creatinine. Reported eGFR is based on the CKD-EPI 2020 equation that does not use a race coefficient. Blood Venous blood / Unknown 04/13/2025 1:27 PM EDT 04/13/2025 1:55 PM EDT us Samm Serrano MD LAB BLOOD ORDERABLES Final Resu lt [facility] [address] [place] [address], documented in this encounter Visit Diagnoses Diagnosis Hyperkalemia Hyperpotassemia Non-ST elevation (NSTEMI) myocardial infarction (CMS-HCC) Heart failure, unspecified (CMS-HCC) Heart failure, unspecified documented in this encounter Additional Health Concerns Assessment Noted Time PHQ-9 Depression Total Score: 0 08/17/20 21 12:12 PM EST documented as of this encounter Care Teams Conservator Artifacts Relationship Specialty Start Date End Date Samm Serrano MD PCP - General Family Medicine 02/26/24 documented as of this encounter
--- OUTSIDE RECORDS SUMMARY | 2025-05-12 14:03 | XMS_ITS | Encounter Summary ---
Author Organization [facility] Address [address] [place] [address] Care Team Providers Care Gage Maker Name Role Phone Samm Serrano MD Primary Care Provider [phone] Tom Gonzalez Unavailable [phone] Andreas Pierre MD Unavailable Virgil Carrillo MD Unavailable Jethro Mendoza MD Unavailable Isaías Kinney MD Unavailable [phone] Source Comments In the event this information is protected by the Federal Confidentiality of Alcohol and Drug AbusePatient Records regulations: The Federal rules restrict any use of the information to criminally investigate or prosecute any alcohol or drug abuse patient.[facility] Encounter Details Date Type Department Care Team (Late st Contact Info) Description 05/23/2024 Get Medical Advice [facility] [address] [place] [address] Provider, [place] out of pocket expenses Social History Tobacco [...] the past 12 months has th e [employer], gas, oil, or water [facility] threatened to shut off services in your [...] time in the past 12 m [facility], were you homeless or living in a long-term (including now)? No 05/11/2024 Area Deprivation Index Answer Date Rich rded National Score (1-100), lower number is lower ri sk 52 02/05/2024 State Score (1-10), lower number is lower risk 3 02/05/2024 Data from: https://www.neighborhoodatlas.medicine.[facility].edu/. Last address used for calculation [address] [...] Entry Date Author No 05/16/2024 2:47 PM EDCampos Maya RN documented in this encounter Plan of Treatment Upcoming Encounters Date Type Department Care Team (Latest Contact Info) Description 06/30/2025 10:00 AM EDT Office Visit Cardiology [address] [place] [address] Isaías Kinney MD [address] [place], [place] [phone] DX: Chronic diastolic heart failure 09/20/2025 8:15 AM EST Procedure Cardiology [address] [place] [address] Dx. Atherosclerotic heart disease of [place] coronary artery with other forms of angina pectoris 09/20/2025 9:00 AM EST Appointment Cardiology [address] [place] [address] Dx. Atherosclerotic heart disease of [place] coronary artery with other forms of angina pectoris 09/20/2025 9:45 AM EST Office Visit Cardiology [address] [place] [address] Nj Wei MD [address] [place] [address] Dx. Atherosclerotic heart disease of [place] coronary artery with other forms of angina pectoris documented as of this encounter Goals Goal Patient Goal Type Associated Problems Recent Progress Patient-Stated? Author Blood Pressure < 130/80 Blood Pressure 134/63( 025 3:00 PM EDT) No Lidia Lo, ARIES documented as of this encounter Visit Diagnoses Not on filedocumented in this encounter Care Teams Gage Maker Relationship Specialty Start Date End Date Samm Serrano MD PCP - General Family Medicine 05/30/12 Tom Gonzalez [address] [place] [address] Primary Staff Physician Cardiology 12/02/18 Andreas Pierre MD [address] [place] [address] Primary Staff Physician Cardiology 04/26/23 Virgil Carrillo MD [address] [place] [address] Primary Staff Physician Cardiology 10/29/23 Jethro Mendoza MD [address] [place] [address] Primary Staff Physician Cardiology 12/26/23 Isaías Kinney MD [address] [place] [address] Primary Staff Physician Cardiology 01/10/24 documented as of this encounter
--- OUTSIDE RECORDS SUMMARY | 2025-05-12 14:03 | XMS_ITS | Encounter Summary ---
Author Organization [facility] Address [address] [place] [address] Care Team Providers Care Electrical Tester Battery Name Role Phone Samm Serrano MD Primary Care Provider +4 Tom Gonzalez Unavailable [phone] Andreas Pierre MD Unavailable Virgil Carrillo MD Unavailable Jethro Mendoza MD Unavailable Isaías Kinney MD Unavailable [phone] Source Comments In the event this information is protected by the Federal Confidentiality of Alcohol and Drug AbusePatient Records regulations: The Federal rules restrict any use of the information to criminally investigate or prosecute any alcohol or drug abuse patient.[facility] Encounter Details Date Type Department Care Team (Late st Contact Info) Description 04/23/2024 Get Medical Advice Neurology [facility] [address] [place] [address] Jesusita Esparza, ANAND.MECHANICAL MANUFACTURING TECHNICIAN [address] [place] [address] Low [place] Test Results Social History Tobacco Use Types Packs/Day Years Used Date Smoking Tobacco: Former Cigarettes 1 10 0 04/28/1972 - 04/28/1982 Pipe Passive Smoke Exposure: Never Smokeless Tobacco: Never Alcohol Use Standard Drinks/Week Comments Yes 0 (1 standard drink = 0.6 oz pur e alcohol) rarely [facility] Utilities Answer Date Recorded In the past [...] in a chcf (including now)? No 03/02/2024 Area Deprivation Index Answer Date Rich rded National Score (1-100), lower number is lower ri sk 52 02/05/2024 State Score (1-10), lower number is lower risk 3 02/05/2024 Data from: https://www.neighborhoodatlas.medicine.[facility]/. Last address used for calculation [address] [place] [address] [address] 02/05/2024 Sex and Gender Information [...] 10:00 AM EDT Office Visit Cardiology [address] [place] [address] Isaías Kinney MD [address] [place], [place] [phone] DX: Chronic diastolic heart failure 09/20/2025 8:15 AM EST Procedure Cardiology [address] [place] [address] Dx. Atherosclerotic heart disease of [place] coronary artery with other forms of angina pectoris 09/20/2025 9:00 AM EST Appointment Cardiology [address] [place] [address] Dx. Atherosclerotic heart disease of [place] coronary artery with other forms of angina pectoris 09/20/2025 9:45 AM EST Office Visit Cardiology [address] [place] [address] Nj Wei MD [address] [place], [place] [phone] Dx. Atherosclerotic heart disease of [place] coronary artery with other forms of angina pectoris documented as of this encounter Goals Goal Patient Goal Type Associated Problems Recent Progress Patient-Stated? Author Blood Pressure < 130/80 Blood Pressure 134/63( 025 3:00 PM EDT) Lidia Soto, ARIES documented as of this encounter Visit Diagnoses Not on filedocumented in this encounter Care Teams Electrical Tester Battery Relationship Specialty Start Date End Date Samm Serrano MD PCP - General Family Medicine 05/30/12 Tom Gonzalez [address] [place] [address] Primary Staff Physician Cardiology 12/02/18 Andreas Pierre MD [facility] [place] [address] Primary Staff Physician Cardiology 04/26/23 Virgil Carrillo MD [address] [place] [address], [place] [address] Primary Staff Physician Cardiology 10/29/23 Jethro Mendoza MD [address] [place] [address] Primary Staff Physician Cardiology 12/26/23 Isaías Kinney MD [address] [place] [address] Primary Staff Physician Cardiology 01/10/24 documented as of this encounter
--- OUTSIDE RECORDS SUMMARY | 2025-05-12 14:03 | XMS_ITS | Encounter Summary ---
Author Organization [facility] Address [address] [place] [address] Care Team Providers Care Spaghetti Machine Operator Name Role Phone Samm Serrano MD Primary Care Provider [phone] Tom Gonzalez Unavailable [phone] Andreas Pierre MD Unavailable Virgil Carrillo MD Unavailable Jethro Mendoza MD Unavailable Isaías Kinney MD Unavailable [phone] Source Comments In the event this information is protected by the Federal Confidentiality of Alcohol and Drug AbusePatient Records regulations: The Federal rules restrict any use of the information to criminally investigate or prosecute any alcohol or drug abuse patient.[facility] Encounter Details Date Type Department Care Team (Late st Contact Info) Description 04/22/2024 Get Medical Advice Cardiology [address] [place] [address] Isaías Kinney MD [address] [place] [address] [place] Social History Tobacco Use Types [...] a senior care (including now)? No 03/02/2024 Area Deprivation Index Answer Date Rich rded National Score (1-100), lower number is lower ri sk 52 02/05/2024 State Score (1-10), lower number is lower risk 3 02/05/2024 Data from: https://www.neighborhoodatlas.medicine.[facility]/. Last address used for calculation [address] 02/05/2024 Sex and [...] 06/30/2025 10:00 AM EDT Office Visit Cardiology [address] [place] [address] Isaías Kinney MD [address] [place] [phone] DX: Chronic diastolic heart failure 09/20/2025 8:15 AM EST Procedure Cardiology [address] [place] [phone] Dx. Atherosclerotic heart disease of [place] coronary artery with other forms of angina pectoris 09/20/2025 9:00 AM EST Appointment Cardiology [address] [place], [place] [phone] Dx. Atherosclerotic heart disease of [place] coronary artery with other forms of angina pectoris 09/20/2025 9:45 AM EST Office Visit Cardiology [address] [place], [place] [phone] Nj Wei MD [address] [place] [address] Dx. Atherosclerotic heart disease of [place] coronary artery with other forms of angina pectoris documented as of this encounter Goals Goal Patient Goal Type Associated Problems Recent Progress Patient-Stated? Author Blood Pressure < 130/80 Blood Pressure 134/63( 025 3:00 PM EDT) Lidia Soto RN documented as of this encounter Visit Diagnoses Not on filedocumented in this encounter Care Teams Spaghetti Machine Operator Relationship Specialty Start Date End Date Samm Serrano MD PCP - General Family Medicine 05/30/12 Tom Gonzalez [address] [place] [address] Primary Staff Physician Cardiology 12/02/18 Andreas Pierre MD [address] [place], [place] [phone] Primary Staff Physician Cardiology 04/26/23 Virgil Carrillo MD [address] [place], [place] [phone] Primary Staff Physician Cardiology 10/29/23 Jethro Mendoza MD [address] [place] [address] Primary Staff Physician Cardiology 12/26/23 Isaías Kinney MD [address] [place] [address] Primary Staff Physician Cardiology 01/10/24 documented as of this encounter
--- OUTSIDE RECORDS SUMMARY | 2025-05-12 14:03 | XMS_ITS | Encounter Summary ---
Author Organization [facility] Address [address] [place] [address] Care Team Providers Care Tool Setter Apprentice Name Role Phone Samm Serrano MD Primary Care Provider +-4 Tom Gonzalez Unavailable [phone] Andreas Pierre MD Unavailable Virgil Carrillo MD Unavailable Jethro Mendoza MD Unavailable Isaías Kinney MD Unavailable [phone] Source Comments In the event this information is protected by the Federal Confidentiality of Alcohol and Drug AbusePatient Records regulations: The Federal rules restrict any use of the information to criminally investigate or prosecute any alcohol or drug abuse patient.[facility] Encounter Details Date Type Department Care Team (Late st Contact Info) Description 08/06/2024 Patient Msg Cardiology [address] [place] [address] Provider, Dirk Grier Social History Tobacco Use Types Packs/Day Years Used Date Smoking Tobacco: Former Cigarettes 1 10 0 04/28/1972 - 04/28/1982 Pipe Passive Smoke Exposure: Never Smokeless Tobacco: Never Alcohol Use Standard Drinks/Week Comments Yes 0 (1 standard drink = 0.6 oz pur e alcohol) rarely [facility] Utilities Answer Date Recorded In the past 12 months has th e [email or web address], gas, oil, or water company threatened to [...] place to sleep or slept in a penitentiary (including now)? No 03/02/2024 Housing Stability Vital [...] time in the past 12 m [facility], were you homeless or living in a penitentiary (including now)? Yes 07/22/2024 Area Deprivation Index Answer Date Rich rded National Score (1-100), lower number is lower ri sk 52 02/05/2024 State Score (1-10), lower number is lower risk 3 02/05/2024 Data from: https://www.neighborhoodatlas.medicine.[facility]/. Last address used for calculation [address] 02/05/2024 Sex and [...] 10:00 AM EDT Office Visit Cardiology [address] [place] [address] Isaías Kinney MD [address] [place] [address] DX: Chronic diastolic heart failure 09/20/2025 8:15 AM EST Procedure Cardiology [address] [place] [address] Dx. Atherosclerotic heart disease of [place] coronary artery with other forms of angina pectoris 09/20/2025 9:00 AM EST Appointment Cardiology [address] [place], [place] [phone] Dx. Atherosclerotic heart disease of [place] coronary artery with other forms of angina pectoris 09/20/2025 9:45 AM EST Office Visit Cardiology [address] [place] [address] Nj Wei MD [address] [place] [address] Dx. Atherosclerotic heart disease of [place] coronary artery with other forms of angina pectoris documented as of this encounter Goals Goal Patient Goal Type Associated Problems Recent Progress Patient-Stated? Author Blood Pressure < 130/80 Blood Pressure 134/63( 025 3:00 PM EDT) No Lidia Lo, ARIES documented as of this encounter Visit Diagnoses Not on filedocumented in this encounter Care Teams Tool Setter Apprentice Relationship Specialty Start Date End Date Samm Serrano MD PCP - General Family Medicine 05/30/12 Tom Gonzalez [address] [place] [address] Primary Staff Physician Cardiology 12/02/18 Andreas Pierre MD [address] [place] [address] Primary Staff Physician Cardiology 04/26/23 Virgil Carrillo MD [address] [place] [address] Primary Staff Physician Cardiology 10/29/23 Jethro Mendoza MD [address] [place] [address] Primary Staff Physician Cardiology 12/26/23 Isaías Kinney MD [address] [place] [address] Primary Staff Physician Cardiology 01/10/24 documented as of this encounter
--- OUTSIDE RECORDS SUMMARY | 2025-05-12 14:03 | XMS_ITS | Encounter Summary ---
Author Organization [facility] Address [address] [place] [address] Care Team Providers Care Syrup Mixer Helper Name Role Phone Samm Serrano MD Primary Care Provider +4 Tom Gonzalez Unavailable [phone] Andreas Pierre MD Unavailable Virgil Carrillo MD Unavailable Jethro Mendoza MD Unavailable Isaías Kinney MD Unavailable [phone] Source Comments In the event this information is protected by the Federal Confidentiality of Alcohol and Drug AbusePatient Records regulations: The Federal rules restrict any use of the information to criminally investigate or prosecute any alcohol or drug abuse patient.[facility] Encounter Details Date Type Department Care Team (Late st Contact Info) Description 07/22/2024 Patient [facility]3 [address] [place] [address] Tessa Zuniga RPh At your next appointment, choose [facility]. Social History Tobacco Use Types Packs/Day Years Used Date Smoking Tobacco: Former Cigarettes 1 10 0 04/28/1972 - 04/28/1982 Pipe Passive Smoke Exposure: Never Smokeless Tobacco: Never Alcohol Use Standard Drinks/Week Comments Yes 0 (1 standard drink = 0.6 oz pur e alcohol) rarely [facility] Utilities Answer Date Recorded In the past 12 months has th e [employer], gas, oil, or water [employer] threatened to shut off services in your [...] any time in the past 12 m [facility], were you homeless or living in a custodial (including now)? Yes 07/22/2024 Area Deprivation Index Answer Date Rich rded National Score (1-100), lower number is lower ri sk 52 02/05/2024 State Score (1-10), lower number is lower risk 3 02/05/2024 Data from: https://www.neighborhoodatlas.[facility]/. Last address used for calculation [address] 02/05/2024 Sex [...] No 05/16/2024 2:47 PM EDT Campos Mina ARIES documented in this encounter Plan of Treatment Upcoming Encounters Date Type Department Care Team (Latest Contact Info) Description 06/30/2025 10:00 AM EDT Office Visit Cardiology [address] [place] [address] Isaías Kinney MD [address] [place] [address] DX: Chronic diastolic heart failure 09/20/2025 8:15 AM EST Procedure Cardiology [address] [place] [address] Dx. Atherosclerotic heart disease of [place] coronary artery with other forms of angina pectoris 09/20/2025 9:00 AM EST Appointment Cardiology [address] [place] [address] Dx. Atherosclerotic heart disease of [place] coronary artery with other forms of angina pectoris 09/20/2025 9:45 AM EST Office Visit Cardiology [address] [place] [address] Nj Wei MD [address] [place] [address] Dx. Atherosclerotic heart disease of [place] coronary artery with other forms of angina pectoris documented as of this encounter Goals Goal Patient Goal Type Associated Problems Recent Progress Patient-Stated? Author Blood Pressure < 130/80 Blood Pressure 134/63( 025 3:00 PM EDT) No Lidia Lo, ARIES documented as of this encounter Visit Diagnoses Not on filedocumented in this encounter Care Teams Syrup Mixer Helper Relationship Specialty Start Date End Date Samm Serrano MD PCP - General Family Medicine 05/30/12 Tom Gonzalez [address] [place] [address] Primary Staff Physician Cardiology 12/02/18 Andreas Pierre MD [address] [place], [place] [phone] Primary Staff Physician Cardiology 04/26/23 Virgil Carrillo MD [address] [phone] Primary Staff Physician Cardiology 10/29/23 Jethro Mendoza MD [address] [place] [address] Primary Staff Physician Cardiology 12/26/23 Isaías Kinney MD [address] [place] [address] Primary Staff Physician Cardiology 01/10/24 documented as of this encounter
--- OUTSIDE RECORDS SUMMARY | 2025-05-12 14:03 | XMS_ITS | Encounter Summary ---
Author Organization [facility] Address [address] [place] [address] Care Team Providers Care Hazardous Substances Engineer Name Role Phone Samm Serrano MD Primary Care Provider +-4 Tom Gonzalez Unavailable [phone] Andreas Pierre MD Unavailable Virgil Carrillo MD Unavailable Jethro Mendoza MD Unavailable Isaías Kinney MD Unavailable [phone] Source Comments In the event this information is protected by the Federal Confidentiality of Alcohol and Drug AbusePatient Records regulations: The Federal rules restrict any use of the information to criminally investigate or prosecute any alcohol or drug abuse patient.[facility] Encounter Details Date Type Department Care Team (Late st Contact Info) Description 07/13/2024 Get Medical Advice Cardiology [address] [place] [address] Isaías Kinney MD [address] [place] [address] Water retention Social History Tobacco Use Types [...] risk 3 02/05/2024 Data from: https://www.neighborhoodatlas.medicine.[facility].edu/. Last address used for calculation [address] [place] [address] [address] 02/05/2024 Sex and Gender Information [...] 10:00 AM EDT Office Visit Cardiology [address] [place] [address] Isaías Kinney MD [address] [place] [address] DX: Chronic diastolic heart failure 09/20/2025 8:15 AM EST Procedure Cardiology [address] [place] [address] Dx. Atherosclerotic heart disease of [place] coronary artery with other forms of angina pectoris 09/20/2025 9:00 AM EST Appointment Cardiology [address] [place] [address] Dx. Atherosclerotic heart disease of [place] coronary artery with other forms of angina pectoris 09/20/2025 9:45 AM EST Office Visit Cardiology [address] [place] [address] Nj Wei MD [address] [place] [address] Dx. Atherosclerotic heart disease of [place] coronary artery with other forms of angina pectoris documented as of this encounter Goals Goal Patient Goal Type Associated Problems Recent Progress Patient-Stated? Author Blood Pressure < 130/80 Blood Pressure 134/63( 025 3:00 PM EDT) No Lidia Lo, ARIES documented as of this encounter Visit Diagnoses Not on filedocumented in this encounter Care Teams Hazardous Substances Engineer Relationship Specialty Start Date End Date Samm Serrano MD PCP - General Family Medicine 05/30/12 Tom Gonzalez [address] [place] [address] Primary Staff Physician Cardiology 12/02/18 Andreas Pierre MD [address] [place] [address] Primary Staff Physician Cardiology 04/26/23 Virgil Carrillo MD [address] [place] [address] Primary Staff Physician Cardiology 10/29/23 Jethro Mendoza MD [address] [place] [address] Primary Staff Physician Cardiology 12/26/23 Isaías Kinney MD [address] [place] [address] Primary Staff Physician Cardiology 01/10/24 documented as of this encounter
--- OUTSIDE RECORDS SUMMARY | 2025-05-12 14:03 | XMS_ITS ---
Author Organization [facility] Address [address] [place] [address] Care Team Providers Care Miter Saw Operator Name Role Phone Samm Serrano MD Primary Care Provider +-4 Tom Gonzalez Unavailable [phone] Andreas Pierre MD Unavailable Virgil Carrillo MD Unavailable Jethro Mendoza MD Unavailable Isaías Kinney MD Unavailable [phone] Active Problems Patient Care Coordination No [...] SVG-PDA, SVG-OM) on 05/01/12 - [facility] 2021: patent OTTO-LAD and SVG-OM, [...] ICD shock Patient has been followed by Supervisor Ditching Dr. Wei for frequent PVCs (burden 27% [...] hospitalized for acute decompensated heart failure at [facility] 09/12/24-09/16/24. During this hospitalization he was diuresed and discharged home. Remote device transmission then revealed that patient had an ICD shock for VT on 09/16/24 at 6:22 am. He was reportedly not on a continuous satellite project site monitor at the time. He had a total of 21 VT events with rates 214-231 bpm, 20 of which were successfully treated with ATP x1 between 09/14/24-10/10/24. Dr. Wei recommended admission for further management of ventricular tachycardia and recurrent acute decompensated heart failure. HOSPITAL COURSE: The patient presented to the [facility] ED 09/17/24 after being notified of [...] disease, unspecified CKD stage, unspecified whether intermediate insulin use 04/26/2023 Stroke (cerebrum) 09/03/2022 Chronic systolic heart failure 09/03/2022 Carotid stenosis, asymptomatic, bilateral 2021 Syncope 03/18/2019 Sweating 11/17/2012 Overview (11/17/2012): History: Developed cold sweat ~ 1100 at rest during episcopalian on 11/16. There was no nausea, chest pain, jaw pain, shortness of breath, or lightheadedness. This is similar to his symptoms when patient had STEMI in 04/2012. Patient presented to [facility] at 1200. EKG showed q waves in III, aVF; ST depression in I, aVL; ST elevation V3, V4, V5. On arrival to [facility] his EKG showed resolution of ST elevation in V4 and V5. His troponin 0.367 at OSH (? Troponin I); but has been negative at [facility]. Assessment: Possible atypical manifestations type II demand ischemia in setting of recent dehydration from profuse diarrhea or residual symptoms of recent illness. Cold sweat resolved after arrival. Plan: Trend cardiac enzymes, monitor clinical symptoms, and serial EKG's as needed. If continue to worsen clinically, would proceed to [facility]. Coronary artery disease invo lving coronary bypass graft of [place] heart without angina pectoris 11/17/2012 Acute on chronic systolic congestive heart failu re 11/17/2012 Overview (11/17/2012): History: Acute systolic heart failure in setting of MS in 04/2012 LVEF 42% by ECHO 06/2012 [...] LVEF 25%, NL RV. IABP placed in equipment operator/laborer preop. D/c'd 05/02. Postpump TTE: LVEF 25-30%. [...] complaints. Continue. Atherosclerotic heart diseas e of [place] coronary artery with other forms of angina [...] 56, Troponin T .37 on admission to [facility] Wide-complex tachycardia 04/28/2012 Overview (05/03/2012): Presented to OSH 04/28/12 in setting acute MS with wide complex tachycardia SVT versus VT. Given adenosine x2 without effect, diltiazem bolus and infusion with no effect. Spontaneous conversion to NSR. Had short run of wide complex tachycardia upon arrival to [facility] from CICU. Pre-op evaluation 04/28/2012 05/01/2012 Overview (04/28/2012): Preoperative evaluation for CABG. Not ReDo -Carotids: Ordered -Vein Mapping: Ordered -Bedside PFTs: Ordered -Formal TTE: Ordered -CXR: Completed
--- OUTSIDE RECORDS SUMMARY | 2025-05-12 14:03 | XMS_ITS | Encounter Summary ---
Author Organization [facility] Address [address] [place] [address] Care Team Providers Care Wood Grainer Name Role Phone Samm Serrano MD Primary Care Provider +-4 Tom Gonzalez Unavailable [phone] Andreas Pierre MD Unavailable Virgil Carrillo MD Unavailable Jethro Mendoza MD Unavailable Isaías Kinney MD Unavailable [phone] Source Comments In the event this information is protected by the Federal Confidentiality of Alcohol and Drug AbusePatient Records regulations: The Federal rules restrict any use of the information to criminally investigate or prosecute any alcohol or drug abuse patient.[facility] Encounter Details Date Type Department Care Team (Late st Contact Info) Description 06/11/2024 Patient Msg Cardiology [address] [place] [address] Karon Claros MA Missed Remote Transmission Social History Tobacco Use Types Packs/Day Years Used Date Smoking Tobacco: Former Cigarettes 1 10 0 04/28/1972 - 04/28/1982 Pipe Passive Smoke Exposure: Never Smokeless Tobacco: Never Alcohol Use Standard Drinks/Week Comments Yes 0 (1 standard drink = 0.6 oz pur e alcohol) rarely [facility] Utilities Answer Date Recorded In the past 12 months has th e [employer], gas, oil, or water company threatened to [...] is lower risk 3 02/05/2024 Data from: https://www.neighborhoodatlas.[facility]/. Last address used for calculation [address] [...] 06/30/2025 10:00 AM EDT Office Visit Cardiology [address] [place] [address] Isaías Kinney MD [address] [place] [address] DX: Chronic diastolic heart failure 09/20/2025 8:15 AM EST Procedure Cardiology [address] [place] [address] Dx. Atherosclerotic heart disease of [place] coronary artery with other forms of angina pectoris 09/20/2025 9:00 AM EST Appointment Cardiology [address] [place], [place] [phone] Dx. Atherosclerotic heart disease of [place] coronary artery with other forms of angina pectoris 09/20/2025 9:45 AM EST Office Visit Cardiology [address] [place] [address] Nj Wei MD [address] [place] [address] Dx. Atherosclerotic heart disease of [place] coronary artery with other forms of angina pectoris documented as of this encounter Goals Goal Patient Goal Type Associated Problems Recent Progress Patient-Stated? Author Blood Pressure < 130/80 Blood Pressure 134/63( 025 3:00 PM EDT) No Lidia Lo RN documented as of this encounter Visit Diagnoses Not on filedocumented in this encounter Care Teams Wood Grainer Relationship Specialty Start Date End Date Samm Serrano MD PCP - General Family Medicine 05/30/12 Tom Gonzalez [address] [place] [address] Primary Staff Physician Cardiology 12/02/18 Andreas Pierre MD [facility] [place], [place] [phone] Primary Staff Physician Cardiology 04/26/23 Virgil Carrillo MD [address] [place] [address] Primary Staff Physician Cardiology 10/29/23 Jethro Mendoza MD [address] [place] [address] Primary Staff Physician Cardiology 12/26/23 Isaías Kinney MD [address] [place] [address] Primary Staff Physician Cardiology 01/10/24 documented as of this encounter
--- OUTSIDE RECORDS SUMMARY | 2025-05-12 14:03 | XMS_ITS | Encounter Summary ---
Author Organization [facility] Address [address] [place] [address] Care Team Providers Care Industrial Service Technician Name Role Phone Samm Serrano MD Primary Care Provider +-4 Tom Gonzalez Unavailable [phone] Andreas Pierre MD Unavailable Virgil Carrillo MD Unavailable Jethro Mendoza MD Unavailable Isaías Kinney MD Unavailable [phone] Source Comments In the event this information is protected by the Federal Confidentiality of Alcohol and Drug AbusePatient Records regulations: The Federal rules restrict any use of the information to criminally investigate or prosecute any alcohol or drug abuse patient.[facility] Encounter Details Date Type Department Care Team (Late st Contact Info) Description 02/11/2024 Patient Msg Cardiology [address] [phone] Isaías Kinney MD [address] [place] [address] Appointment Cancellation Request Social History [...] is lower risk 3 02/05/2024 Data from: https://www.neighborhoodatlas.[facility].edu/. Last address used for calculation [address] [place] [address] [address] 02/05/2024 Sex and Gender Information [...] 06/30/2025 10:00 AM EDT Office Visit Cardiology [address] [place] [address] Isaías Kinney MD [address] [place] [address] DX: Chronic diastolic heart failure 09/20/2025 8:15 AM EST Procedure Cardiology [address] [place] [address] Dx. Atherosclerotic heart disease of [place] coronary artery with other forms of angina pectoris 09/20/2025 9:00 AM EST Appointment Cardiology [address] [place] [address] Dx. Atherosclerotic heart disease of [place] coronary artery with other forms of angina pectoris 09/20/2025 9:45 AM EST Office Visit Cardiology [address] [place] [address] Nj Wei MD [address] [place] [address] Dx. Atherosclerotic heart disease of [place] coronary artery with other forms of angina pectoris documented as of this encounter Goals Goal Patient Goal Type Associated Problems Recent Progress Patient-Stated? Author Blood Pressure < 130/80 Blood Pressure 134/63( 025 3:00 PM EDT) No Kordeleski, Lidia, RN documented as of this encounter Visit Diagnoses Not on filedocumented in this encounter Care Teams Industrial Service Technician Relationship Specialty Start Date End Date Samm Serrano MD PCP - General Family Medicine 05/30/12 Tom Gonzalez [address] [facility] [place] [address] Primary Staff Physician Cardiology 12/02/18 Andreas Pierre MD [address] [place], [place] [phone] Primary Staff Physician Cardiology 04/26/23 Virgil Carrillo MD [address] [place] [address] Primary Staff Physician Cardiology 10/29/23 Jethro Mendoza MD [address] [place] [address] Primary Staff Physician Cardiology 12/26/23 Isaías Kinney MD [address] [place] [address] Primary Staff Physician Cardiology 01/10/24 documented as of this encounter
--- OUTSIDE RECORDS SUMMARY | 2025-05-12 14:03 | XMS_ITS | Encounter Summary ---
Author Organization [facility] Address [address] [place] [address] Care Team Providers Care Field Insurance Sales Manager Name Role Phone Samm Serrano MD Primary Care Provider +4 Tom Gonzalez Unavailable [phone] Andreas Pierer MD Unavailable Virgil Carrillo MD Unavailable Jethro Mendoza MD Unavailable Isaías Kinney MD Unavailable [phone] Source Comments In the event this information is protected by the Federal Confidentiality of Alcohol and Drug AbusePatient Records regulations: The Federal rules restrict any use of the information to criminally investigate or prosecute any alcohol or drug abuse patient.[facility] Encounter Details Date Type Department Care Team (Late st Contact Info) Description 07/26/2024 Patient [facility] HB-3 [address] [place] [address] Tuyet Hernandez, [facility] Heart Failure Education Social History Tobacco Use Types Packs/Day Years Used Date Smoking Tobacco: Former Cigarettes 1 10 0 04/28/1972 - 04/28/1982 Pipe Passive Smoke Exposure: Never Smokeless Tobacco: Never Alcohol Use Standard Drinks/Week Comments Yes 0 (1 standard drink = 0.6 oz pur e alcohol) rarely [facility] Utilities Answer Date Recorded In the past 12 months has th e [employer], gas, oil, or water [employer] threatened to shut off services in your [...] risk 3 02/05/2024 Data from: https://www.neighborhoodatlas.[facility]/. Last address used for calculation [address] [...] 06/30/2025 10:00 AM EDT Office Visit Cardiology [address] [place] [address] Isaías Kinney MD [address] [place] [address] DX: Chronic diastolic heart failure 09/20/2025 8:15 AM EST Procedure Cardiology [address] [place] [address] Dx. Atherosclerotic heart disease of [place] coronary artery with other forms of angina pectoris 09/20/2025 9:00 AM EST Appointment Cardiology [address] [place] [address] Dx. Atherosclerotic heart disease of [place] coronary artery with other forms of angina pectoris 09/20/2025 9:45 AM EST Office Visit Cardiology [address] [place] [address] Nj Wei MD [address] [place] [address] Dx. Atherosclerotic heart disease of [place] coronary artery with other forms of angina pectoris documented as of this encounter Goals Goal Patient Goal Type Associated Problems Recent Progress Patient-Stated? Author Blood Pressure < 130/80 Blood Pressure 134/63( 025 3:00 PM EDT) No Lidia Lo, ARIES documented as of this encounter Visit Diagnoses Not on filedocumented in this encounter Care Teams Field Insurance Sales Manager Relationship Specialty Start Date End Date Samm Serrano MD PCP - General Family Medicine 05/30/12 Tom Gonzalez [address] [place] [address] Primary Staff Physician Cardiology 12/02/18 Andreas Pierre MD [address] [place], [place] [phone] Primary Staff Physician Cardiology 04/26/23 Virgil Carrillo MD [address] [place] [phone] Primary Staff Physician Cardiology 10/29/23 Jethro Mendoza MD [address] [place] [address] Primary Staff Physician Cardiology 12/26/23 Isaías Kinney MD [address] [place] [address] Primary Staff Physician Cardiology 01/10/24 documented as of this encounter
--- OUTSIDE RECORDS SUMMARY | 2025-05-12 14:03 | XMS_ITS | Encounter Summary ---
Author Organization [facility] Address [address] [place] [address] Care Team Providers Care Set And Exhibit Designer Name Role Phone Samm Serrano MD Primary Care Provider [phone] Tom Gonzalez Unavailable [phone] Andreas Pierre MD Unavailable Virgil Carrillo MD Unavailable Jethro Mendoza MD Unavailable Isaías Kinney MD Unavailable [phone] Source Comments In the event this information is protected by the Federal Confidentiality of Alcohol and Drug AbusePatient Records regulations: The Federal rules restrict any use of the information to criminally investigate or prosecute any alcohol or drug abuse patient.[facility] Encounter Details Date Type Department Care Team (Late st Contact Info) Description 08/14/2024 Patient Msg Cardiology [address] [phone] Isaías Kinney MD [address] [place] [address] Social History Tobacco Use Types [...] 3 02/05/2024 Data from: https://www.neighborhoodatlas.medicine.[facility].edu/. Last address used for calculation [address] [place] [address] [address] 02/05/2024 Sex and Gender Information [...] 06/30/2025 10:00 AM EDT Office Visit Cardiology [address] [place] [phone] Isaías Kinney MD [address] [place] [address] DX: Chronic diastolic heart failure 09/20/2025 8:15 AM EST Procedure Cardiology [address] [place] [phone] Dx. Atherosclerotic heart disease of [place] coronary artery with other forms of angina pectoris 09/20/2025 9:00 AM EST Appointment Cardiology [address] [place] [phone] Dx. Atherosclerotic heart disease of [place] coronary artery with other forms of angina pectoris 09/20/2025 9:45 AM EST Office Visit Cardiology [address] [place] [id number] Nj Wei MD [address] [place] [address] Dx. Atherosclerotic heart disease of [place] coronary artery with other forms of angina pectoris documented as of this encounter Goals Goal Patient Goal Type Associated Problems Recent Progress Patient-Stated? Author Blood Pressure < 130/80 Blood Pressure 134/63( 025 3:00 PM EDT) No Kordeleski, Lidia, RN documented as of this encounter Visit Diagnoses Not on filedocumented in this encounter Care Teams Set And Exhibit Designer Relationship Specialty Start Date End Date Samm Serrano MD PCP - General Family Medicine 05/30/12 Tom Gonzalez [address] [place] [address] Primary Staff Physician Cardiology 12/02/18 Andreas Pierre MD [address] [place] [address] Primary Staff Physician Cardiology 04/26/23 Virgil Carrillo MD [address] [place] [address] Primary Staff Physician Cardiology 10/29/23 Jethro Mendoza MD [address] [place], [place] [phone] Primary Staff Physician Cardiology 12/26/23 Isaías Kinney MD [address] [place] [address] Primary Staff Physician Cardiology 01/10/24 documented as of this encounter
--- OUTSIDE RECORDS SUMMARY | 2025-05-12 14:03 | XMS_ITS | Encounter Summary ---
Author Organization [facility] [employer] s tem Address [facility] [id number] [address] [place] [address] Care Team Providers Care Undertaker Helper Name Role Phone Samm Serrano MD Primary Care Provider [phone] Encounter Details Date Type Department Care Team (Late st Contact Info) Description 04/20/2025 Lab Requisition [facility] - Lab [address] [place] [id number] Samm Serrano MD [address] [place] [address] Hyperkalemia; Non-ST elevation (NSTEMI) myocardial infarction ([facility]); Heart failure, unspecified ([facility]) Social History Tobacco Use Types Packs/Day Years [...] How often do you attend chur or mu-ism services? Never 08/17/2021 Do you [...] Answer Date Recorded Total Score 0 08/17/2021 [facility] - Occupational Stress [...] [facility] a [facility] and/or a training program? No [...] a purpose and direction in my life. aKyan gly Agree 08/17/2021 Sex and Gender Information [...] - 3.90 pg/mL 04/20/2025 10:45 PM EDT [facility] Blood Venous blood / Unknown 04/20/2025 3:53 PM EDT 04/20/2025 4:25 PM EDT Samm Serrano MD LAB BLOOD ORDERABLES Final Resu lt [facility] [address] [place] [id number], [place] [phone] * (ABNORMAL) Thyroid profile includes TSH FT4 (04/20/2025 3:53 PM EDT) FREE T4 1.29 0.61 - 1.60 ng/dL 04/20/2025 6:16 PM EDT [facility] TSH 0.34(L) 0.49 - 4.67 uIU/mL 04/20/2025 6:16 PM EDT [facility] Blood Venous blood / Unknown 04/20/2025 3:53 PM EDT 04/20/2025 4:25 PM EDT us Samm Serrano MD LAB BLOOD ORDERABLES Final Resu lt [facility] [address] [place] [address], [place] * (ABNORMAL) Magnesium (04/20/2025 3:53 PM EDT) MAGNESIUM 2.8(H) 1.8 - 2.6 mg/dL 04/20/2025 4:53 PM EDT [facility] Blood Venous blood / Unknown 04/20/2025 3:53 PM EDT 04/20/2025 4:25 PM EDT us Samm Serrano MD LAB BLOOD ORDERABLES Final Resu lt [address] [place] [address], [place] * (ABNORMAL) Iron and TIBC (04/20/2025 3:53 PM EDT) IRON 41(L) 50 - 212 ug/dL 04/20/2025 10:37 PM EDT [facility] TRANSFERRIN 223 168 - 336 mg/dL 04/20/2025 10:37 PM EDT [facility] IRON BINDING 312 250 - 425 ug/dL 04/20/2025 10:37 PM EDT [facility] IRON SATURATION 13(L) 20 - 50 % SATURATION 04/20/2025 10:37 PM EDT [facility] Blood Venous blood / Unknown 04/20/2025 3:53 PM EDT 04/20/2025 4:25 PM EDT us Samm Serrano MD LAB BLOOD ORDERABLES Final Resu lt [facility] [address] [place] [address], [place] [phone] * (ABNORMAL) CBC auto differential (04/20/2025 3:53 PM EDT) WBC 6.0 4 - 11 x10E9/L 04/20/2025 4:34 PM EDT [facility] RBC Count 3.87(L) 4.1 - 5.7 X10E12/L 04/20/2025 4:34 PM EDT [facility] Hemoglobin 11.6(L) 13 - 17 g/dL 04/20/2025 4:34 PM EDT [facility] Hematocrit 34.8(L) 39 - 50 % 04/20/2025 4:34 PM EDT [facility] MCV 90 80 - 100 fL 04/20/2025 4:34 PM EDT [facility] MCH 30.0 27 - 34 pg 04/20/2025 4:34 PM EDT [facility] MCHC 33.4 32 - 36 g/dL 04/20/2025 4:34 PM EDT [facility] RDW 16.9(H) 11.5 - 15 % 04/20/2025 4:34 PM EDT [facility] Platelet Count 188 150 - 450 X10E9/L 04/20/2025 4:34 PM EDT [facility] MPV 8.2 7 - 12 fL 04/20/2025 4:34 PM EDT [facility] Neutrophils % 85.8 % 04/20/2025 4:34 PM EDT [facility] Lymphocytes % 6.3 % 04/20/2025 4:34 PM EDT [facility] Monocytes % 7.9 % 04/20/2025 4:34 PM EDT [facility] Eosinophils % 0.0 % 04/20/2025 4:34 PM EDT [facility] Basophils % 0.0 % 04/20/2025 4:34 PM EDT [facility] Neutrophils Absolute (A) 5.1 1.5 - 6.6 10*3/uL 04/20/2025 4:34 PM EDT [facility] Lymphocytes Absolute 0.4(L) 1.0 - 3.5 10*3/uL 04/20/2025 4:34 PM EDT [facility] Monocytes Absolute 0.5 0.0 - 0.9 10*3/uL 04/20/2025 4:34 PM EDT [facility] Eosinophils Absolute 0.0 0.0 - 0.4 10*3/uL 04/20/2025 4:34 PM EDT [facility] Basophils Absolute 0.0 0.0 - 0.2 10*3/uL 04/20/2025 4:34 PM EDT [facility] Differential Type AUTOMATED DIFFERENTIAL 04/20/2025 4:34 PM EDT [facility] Blood Venous blood / Unknown 04/20/2025 3:53 PM EDT 04/20/2025 4:25 PM EDT us Samm Serrano MD LAB BLOOD ORDERABLES Final Resu lt Performing Organization Address City/[facility]/ZIP Co de Phone Number [address] [place] [address], [place] * (ABNORMAL) B-type natriuretic peptide (04/20/2025 3:53 PM EDT) BNP >5,000(H) <=100 pg/mL 04/20/2025 6:18 PM EDT [facility] Blood Venous blood / Unknown 04/20/2025 3:53 PM EDT 04/20/2025 4:25 PM EDT us Samm Serrano MD LAB BLOOD ORDERABLES Final Resu lt [address] [place] [address], [place] * (ABNORMAL) Basic Metabolic Panel (04/20/2025 3:53 PM EDT) SODIUM 132(L) 134 - 146 mmol/L 04/20/2025 4:53 PM EDT [facility] POTASSIUM 4.7 3.5 - 5.0 mmol/L 04/20/2025 4:53 PM EDT [facility] CHLORIDE 102 98 - 109 mmol/L 04/20/2025 4:53 PM EDT [facility] CARBON DIOXIDE 21(L) 22 - 32 mmol/L 04/20/2025 4:53 PM EDT [facility] ANION GAP 9 5 - 15 mmol/L 04/20/2025 4:53 PM EDT [facility] BLOOD UREA NITROGEN 95(H) 5 - 27 mg/dL 04/20/2025 4:53 PM EDT [facility] CREATININE 2.49(H) 0.70 - 1.20 mg/dL 04/20/2025 4:53 PM EDT [facility] Comment:METHOD TRACEABLE TO IDMS STANDARD GLUCOSE 151(H) 65 - 99 mg/dL 04/20/2025 4:53 PM EDT [facility] CALCIUM 8.5 8.5 - 10.5 mg/dL 04/20/2025 4:53 PM EDT [facility] EGFR Non-Race Dependent 25(L) >=60 ml/min/1.7 3sq.m 04/20/2025 4:53 PM EDT [facility] Comment: eGFR not reported due to non-numeric value for Creatinine. Reported eGFR is based on the CKD-EPI 2020 equation that does not use a race coefficient. Blood Venous blood / Unknown 04/20/2025 3:53 PM EDT 04/20/2025 4:25 PM EDT us Samm Serrano MD LAB BLOOD ORDERABLES Final Resu lt [facility] [address] [place] [address], documented in this encounter Visit Diagnoses Diagnosis Hyperkalemia Hyperpotassemia Non-ST elevation (NSTEMI) myocardial infarction ([facility]) Heart failure, unspecified ([facility]) Heart failure, unspecified documented in this encounter Additional Health Concerns Assessment Noted Time PHQ-9 Depression Total Score: 0 08/17/20 21 12:12 PM EST documented as of this encounter Care Teams Undertaker Helper Relationship Specialty Start Date End Date Samm Serrano MD PCP - General Family Medicine 02/26/24 documented as of this encounter
--- OUTSIDE RECORDS SUMMARY | 2025-05-12 14:03 | XMS_ITS | Clinical Summary ---
Author Organization [facility] Address [address] [place] [address] Care Team Providers Care Hydrodynamics Professor Name Role Phone Samm Serrano MD Primary Care Provider +-4 Tom Gonzalez Unavailable Andreas Pierre MD Unavailable Virgil Carrillo MD Unavailable Jethro Mendoza MD Unavailable Carmela Kinney MD Unavailable [phone] Allergies Active Allergy Reactions Criticality Noted [...] daily with breakfast. 90 tablet 3 12/21/2024 6 Active Active Problems Patient Care Coordination No [...] x3 (OTTO-LAD, SVG-PDA, SVG-OM) on 05/01/12 - [facility] 2021: patent OTTO-LAD and SVG-OM, [...] ICD shock Patient has been followed by [facility] [employer] Machine Dr. Carvalho for frequent PVCs (burden 27% [...] hospitalized for acute decompensated heart failure at [facility] 09/12/24-09/16/24. During this hospitalization he was diuresed and discharged home. Remote device transmission then revealed that patient had an ICD shock for VT on 09/16/24 at 6:22 am. He was reportedly not on a continuous security monitor at the time. He had a total of 21 VT events with rates 214-231 bpm, 20 of which were successfully treated with ATP x1 between 09/14/24-10/10/24. Dr. Carvalho recommended admission for further management of ventricular tachycardia and recurrent acute decompensated heart failure. HOSPITAL COURSE: The patient presented to the [facility] ED 09/17/24 after being notified [...] stage, unspecified whether intermediate manager insulin use 04/26/2023 Stroke (cerebrum) 09/03/2022 Chronic systolic heart failure 09/03/2022 Carotid stenosis, asymptomatic, bilateral 2021 Syncope 03/18/2019 Sweating 11/17/2012 Overview (11/17/2012): History: Developed cold sweat ~ 1100 at rest during sikhism on 11/16. There was no nausea, chest pain, jaw pain, shortness of breath, or lightheadedness. This is similar to his symptoms when patient had STEMI in 04/2012. Patient presented to [facility] at 1200. EKG showed q waves in III, aVF; ST depression in I, aVL; ST elevation V3, V4, V5. On arrival to [facility] his EKG showed resolution of ST elevation in V4 and V5. His troponin 0.367 at OSH (? Troponin I); but has been negative at [facility] Main campus. Assessment: Possible atypical manifestations type II demand ischemia in setting of recent dehydration from profuse diarrhea or residual symptoms of recent illness. Cold sweat resolved after arrival. Plan: Trend cardiac enzymes, monitor clinical symptoms, and serial EKG's as needed. If continue to worsen clinically, would proceed to [facility]. Coronary artery disease invo lving coronary bypass graft of kashia heart without angina pectoris 11/17/2012 Acute on chronic systolic congestive heart failu re 11/17/2012 Overview (11/17/2012): History: Acute systolic heart failure in setting of VT in 04/2012 LVEF 42% by ECHO 06/2012 [...] LVEF 25%, NL RV. IABP placed in labor service representative preop. D/c'd 05/02. Postpump TTE: LVEF 25-30%. [...] TIME of SERVICE: 9:30 AM Checked: Wilma eMjia 04/30 SUMMARY 04/28/2012 Overview (11/17/2012): Presentation/Indication for [...] complaints. Continue. Atherosclerotic heart diseas e of kashia coronary artery with other forms [...] 56, Troponin T .37 on admission to [facility] Wide-complex tachycardia 04/28/2012 Overview (05/03/2012): Presented to OSH 04/28/12 in setting acute VT with wide complex tachycardia SVT versus VT. Given adenosine x2 without effect, diltiazem bolus and infusion with no effect. Spontaneous conversion to NSR. Had short run of wide complex tachycardia upon arrival to [facility] from CICU. Pre-op evaluation 04/28/2012 05/01/2012 Overview (04/28/2012): Preoperative evaluation for CABG. Not ReDo -Carotids: Ordered -Vein Mapping: Ordered -Bedside PFTs: Ordered -Formal TTE: Ordered -CXR: Completed Encounters Date Type Department Care Team Description 04/13/2025 Patient [place] [address] Allyn Katz RN 03/22/2025 Telephone Radiation Oncology [address] [place] [address] [place] [address] Yung Andrade MD Patient Update; Future Appointment; Lab Orders 03/15/2025 Orders Only Cardiology [address] [place] [address] Mariana Carvalho MD SOB (shortness of breath) (Primary Dx) 03/07/2025 Orders Only Pseudo [place] [address] Mariana Carvalho MD 03/04/2025 2:30 PM EDT [facility] [address] [id number] Tuyet Rodrigues, HIGH FREQUENCY MILL OPERATOR.FITNESS AND WELLNESS MANAGER Amaurosis fugax (Primary Dx); Carotid stenosis, asymptomatic, bilateral; Atrial fibrillation, unspecified type (HCC); Mixed hyperlipidemia; Essential hypertension 03/03/2025 1:49 PM EDT Anesthesia Event HOSP EP Lab [address] [place] [address] Aravind Brumfield MD O'Hara, Carleen A, HIGH FREQUENCY MILL OPERATOR.NUCLEAR UNIT OPERATOR 03/03/2025 12:00 PM EDT - 03/03/2025 1:00 PM EDT Surgery HOSP EP Lab [address] [place] [address] Mariana Carvalho MD CARDIOVERSION EXTERNAL ELECTIVE 03/03/2025 9:31 AM EDT - 03/03/2025 3:24 PM EDT Hospital Encounter [id number] [address] [place] [address] Mariana Carvalho MD Persistent atrial fibrillation (HCC) [I48.19] Discharge Disposition: Home 03/03/2025 Get Medical Advice Cardiology [address] [place] [address] Carmela Kinney MD Urgent 03/03/2025 Travel 03/02/2025 Travel 03/02/2025 Telephone Cardiology [address] [place] [address] Mariana Carvalho MD Schedule Surgery (EPS-DCC) 03/02/2025 Orders Only Pseudo [place] [address] Mariana Carvalho MD 03/01/2025 11:45 AM EDT Office Visit Cardiology [address] [place] [address] Mariana Carvalho MD Atherosclerotic heart disease of kashia coronary artery with other forms of angina pectoris (Primary Dx); Coronary artery disease involving coronary bypass graft of kashia heart without angina pectoris; Acute on chronic systolic congestive heart failure (HCC); S/P CABG (coronary artery bypass graft); Cardiomyopathy, ischemic; Frequent PVCs; VT (ventricular tachycardia) ([facility]); ICD (implantable cardioverter-defibrill ator) discharge; 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 kidney disease, unspecified CKD stage, unspecified whether intermediate manager insulin use ([facility]); Stage 3b chronic kidney disease (HCC); Paroxysmal atrial fibrillation ([facility]); USP (current) use of anticoagulants 03/01/2025 10:30 AM EDT - 03/01/2025 11:59 PM EDT Hospital Encounter Cardiology [address] [place] [address] Pacemaker reprogramming/check [Z45.018] Discharge Disposition: Home 03/01/2025 9:45 AM EDT Procedure Cardiology [address] [place] [address] 03/01/2025 Travel 02/25/2025 Patient [facility] HB-3 [address] [place] [address] Tessa Zuniga RPh A Smarter Way to Manage Your Heart Failure Medications 02/23/2025 Telephone Cardiology [address] [place] [address] Carmela Kinney MD Outside Labs-[facility] Ordered (Outside labs dated 02/22/25 from Mitzy Rubin, scanned into [employer] for review) from Last 3 Months Immunizations Immunization Administration Dates Next Due diphtheria tetanus pertussis (DTP) vaccine 06/13 Family History Medical History Relation Comments Ischemic Heart Disease Brother CABGx6 fi rst at age 72 No Known Problems Daughter 1 No Known Problems Daughter 2 No Known Problems Daughter 3 Coronary Artery Disease Father Heart Attack Father fatal VT at age 77 No Known Problems Maternal Grandfather No Known Problems Maternal Grandmother CHF Mother Other Mother at age 96 atrial fibrillation Mother Other Other paternal cousin at age 50 of VT No Known Problems Paternal Grandfather No Known [...] = 0.6 oz pur e alcohol) rarely Diagnosiaities Answer Date Recorded In the past 12 months has Tbricks, oil, or water knowNormal threatened to shut off services in your [...] is lower risk 3 02/05/2024 Data from: https://www.[email or web address].medicine.[facility].edu/. Last address used for calculation [address] 02/05/2024 Sex and Gender Information [...] 10:00 AM EDT Office Visit Cardiology [address] [place] [address] Carmela Kinney MD [address] [place] [address] DX: Chronic diastolic heart failure 09/20/2025 8:15 AM EST Procedure Cardiology [address] [place] [address] Dx. Atherosclerotic heart disease of kashia coronary artery with other forms of angina pectoris 09/20/2025 9:00 AM EST Appointment Cardiology [address] [place], [place] [id number] Dx. Atherosclerotic heart disease of kashia coronary artery with other forms of angina pectoris 09/20/2025 9:45 AM EST Office Visit Cardiology [address] [place] [address] Mariana Carvalho MD [address] [place] [address] Dx. Atherosclerotic heart disease of kashia coronary [...] Retinal Exam 03/02/2025 03/02/2024 HbA1C 04/03/2025 10/04/2024, 010 11/2024, 05/09/2024, Additional history exists Influenza Vaccine (#1) 2025 DTaP,Tdap,Td Vaccine (2 - Tdap) 06/13/2030 0 Colonoscopy Discontinued 05/14/2024, 04/17, 05/09/2024 Colorectal Cancer Screening Discontinued CT Colonography Discontinued Cologuard (FIT-DNA) Discontinued Fecal Occult Blood Discontinued Sigmoidoscopy Discontinued Goals Goal Patient Goal Type Associated Problems Recent Progress Patient-Stated? Author Blood Pressure < 130/80 Blood Pressure 134/63( 025 3:00 PM EDT) No Lidia Lo RN Medical Devices Implanted Type Area Pole Climber Device Identifier Shelf Expiration Date Model / Serial / Lot [id number] Mitraclip Xt Delivery System - [id number] Implanted:Qty: 1 on 02/18/2024 by Isreal Rain MD at [facility] Clip N/A: Heart PACHE[employer] VASCULAR [id number] / / Sys Kit 1 Sgc & Up To 3 Clips - [id number] Implanted:Qty: 1 on 02/18/2024 at [facility] Clip PACHE[employer] VASCULAR [id number] / / System Vascade 6/7fr Collagen Compression Bioabsorbable Vascular - [id number] Implanted:Qty: 1 on 03/04/2024 at [facility] Collagen Left: Artery - Femoral CARDIVA 11/12/2025 [id number] / / [id number] Icd-D142 [id number] Implanted:2018 (Quantity not on file) ICD [employer] D142 INOGEN / [id number] / [id number] Implanted:2018 (Quantity not on file) Lead [employer] 0675 / [id number] / [id number] Ingevity Mri [id number] Implanted:2018 (Quantity not on file) Lead [employer] 7741 INGEVITY MRI / [id number] / [id number] [place] 4-Front [id number] Implanted:2018 (Quantity not on file) Lead [employer] 0675 RELIANCE 4-FRONT / [id number] / [place] Cv 6x1in Thk1.65mm Ptfe - [id number] Implanted:Qty: 1 on 05/01/2012 at [facility] Patch BARD PERIPHERAL VASCULAR 06/16/2016 [id number] / / [id number] Description:used for plrdget ts. Patch Cv 8x.8cm Tapr Vsgrd Bov - [id number] Implanted:Qty: 1 on 07/01/2012 at [facility] Patch Right: Artery - Carotid [employer] 01/16/2017 [id number] / / [id number] Description:Right Carotid Stent Precise Pro Rx 8mm Nitinol 40mm 135cm Vascular Self Expand Micromesh - [id number] Implanted:Qty: 1 on 03/04/2024 at [facility] Vascular Stents Left: Artery - Carotid CARDINAL CORDIS 12/14/2025 [id number] / / [id number] Procedures Procedure Name Priority Date/Time Associated Diagnosis [...] AM EDT INTERROGATION EVAL REMOTE </90 D 1/2/SONAR WATCHSTANDER LD DFB Routine 03/02/2025 4:01 AM EDT [...] 4:00 AM EDT) Date Time Interrogation Session [id number] MURJ CARDIAC Type Interrogation Session Remote Device Initiated MURJ CARDIAC Implantable Pulse Generator Pole Climber Excelera MURJ CARDIAC Implantable Pulse Generator Type Defibrillator MURJ CARDIAC Implantable Pulse Generator Model D142 MURJ CARDIAC Implantable Pulse Generator Serial Number [id number] MURJ CARDIAC Implantable Pulse Generator Implant Date 20190324 MURJ CARDIAC Battery Remaining Percentage 81.00 MURJ CARDIAC Battery Remaining Longevity 72.0 MURJ CARDIAC Battery Status Beginning of Service MURJ CARDIAC Capacitor Charge Time 9.500 MURJ CARDIAC Bj Statistic RA Percent Paced 0.00 MURJ CARDIAC Jb Statistic RV Percent Paced 0.00 MURJ CARDIAC Atrial Tachy Statistic AT/AF [place] Percent 20.00 MURJ CARDIAC Lead Channel Sensing [...] CARDIAC Therapy Statistic Recent Shocks Delivered 0 [facility] Therapy Statistic Recent Shocks Aborted 0 [facility] Therapy Statistic Recent ATP Delivered 0 [facility] Shock Measured Impedance 42 MURJ CARDIAC Lead Channel Setting Sensing Polarity Bipolar [facility] Lead Channel Setting Sensing Polarity Bipolar [facility] Lead Channel Setting Pacing Polarity Bipolar [facility] Lead Channel Setting Pacing Polarity Bipolar [facility] Lead Channel Pacing Threshold Polarity Bipolar [facility] Lead Channel Pacing Threshold Polarity Bipolar [facility] Zone Setting Type Category VF MURJ CARDIAC Rate 1 240 MURJ CARDIAC Therapies Burst,41J,41J,41J x 6 MURJ CARDIAC Zone Setting Status On [facility] Zone ID 1 [facility] Setting Type Category VT MURJ CARDIAC Rate 1 200 MURJ CARDIAC Therapies 2 x Burst,41J,41J,41J x 4 MUR CARDIAC Zone Setting Status On [facility] Zone ID 2 MUR CARDIAC Zone Setting Type Category VT MURJ CARDIAC Rate 1 175 MURJ CARDIAC Therapies 3 x Burst,41J,41J,41J x 3 [facility] Zone Setting Status On [facility] Zone ID 3 [facility] Implantable Lead Pole Climber [employer] [facility] Implantable Lead Model 7741 Ingevity MRI [facility] Implantable Lead Location Right Atrium [facility] Implantable Lead Connection Status Connected [facility] Implantable Lead Serial Number [id number] [facility] Implantable Lead Implant Date 20190324 [facility] Implantable Lead Pole Climber [employer] [facility] Implantable Lead Model 0675 [facility] Implantable Lead Location Right Ventricle [facility] Implantable Lead Connection Status Connected [facility] Implantable Lead Serial Number [id number] [facility] Implantable Lead Implant Date 20190316 [facility] Implantable Lead Polarity Type Unknown [facility] 03/07/2025 4:00 AM EDT Narrative [facility] - 03/10/2025 7:36 AM EDT Remote Device Evaluation * Device type: BST dual lead ICD * Presenting Rhythm: /VS * Battery Status: Battery is at 6.00 yrs * Arrhythmias: There has been 1 atrial detection since last remote transmission * Lead Measurements: Sensing and lead impedances reviewed, stable measurements per trends * Other Diagnostics: *AP 0%, TALENT SOURCER 0%, AT/AF burden 20%* Tachycardia: AFL * Stored EGMs are consistent with or suggestive of Atrial Flutter * AT [place]: 20% * Total number of episodes: 1 [...] per trends * Other Diagnostics: *AP 0%, TALENT SOURCER 0%, AT/AF burden 20%* Tachycardia: AFL * Stored EGMs are consistent with or suggestive of Atrial Flutter * AT [place]: 20% * Total number of episodes: 1 on 03/05/25 * Episode length: 27hr 38min * OAC: Eliquis NOTE TO PROVIDERS: Cardiac Implanted Devices Flowsheets contain detailedProgramming and Evaluation data. Full Docket/PDF found below under Scanned Documents . Mariana Carvalho MD CARDIOLOGY Final Result [facility] * CARDIAC IMPLANTABLE DEVICE CHECK (03/03/2025 3:42 PM EDT) Date Time Interrogation Session [id number] [facility] Implantable Pulse Generator Pole Climber [employer] [facility] Implantable Pulse Generator Type Defibrillator [facility] Implantable Pulse Generator Model D142 [facility] Implantable Pulse Generator Serial Number [id number] [facility] Implantable Pulse Generator Implant Date 20190324 MURJ CARDIAC Battery Status MONIKA MURJ CARDIAC Bj Statistic RA Percent Paced 1.00 MURJ CARDIAC Bj Statistic RV Percent Paced 2.00 MURJ CARDIAC Atrial Tachy Statistic AT/AF [place] Percent 100.00 MURJ CARDIAC Lead Channel Sensing [...] x6 MURJ CARDIAC Zone Setting Status On [facility] Zone ID 1 MURJ CARDIAC Zone Setting Type Category VT MURJ CARDIAC Rate 1 200 MURJ CARDIAC Therapies Burst, 41J, 41J, 41J x4 MURJ CARDIAC Zone Setting Status On [facility] Zone ID 2 MURJ CARDIAC Zone Setting Type Category VT1 MURJ CARDIAC Rate 1 175 MURJ CARDIAC Therapies Burst, 41J, 41J, 41J x3 MURJ CARDIAC Zone Setting Status On [facility] Zone ID 3 [facility] Implantable Lead Pole Climber [employer] [facility] Implantable Lead Model 7741 Ingevity MRI [facility] Implantable Lead Location Right Atrium [facility] Implantable Lead Connection Status Connected [facility] Implantable Lead Serial Number [id number] [facility] Implantable Lead Implant Date 20190324 [facility] Implantable Lead Pole Climber [employer] [facility] Implantable Lead Model 0675 [facility] Implantable Lead Location Right Ventricle [facility] Implantable Lead Connection Status Connected [facility] Implantable Lead Serial Number [id number] [facility] Implantable Lead Implant Date 20190316 [facility] 03/03/2025 3:42 PM EDT Narrative [facility] - 03/04/2025 4:37 PM EDT Normal [...] Calculation (Bazett) 438 ms [facility] Calculated P [place] 53 degrees [facility] Calculated R [place] -10 degrees [facility] Calculated T [place] 153 degrees [facility] 03/03/2025 2:22 PM EDT Impressions [facility] - 04/15/2025 7:12 AM EDT SINUS RHYTHM WITH PREMATURE ATRIAL COMPLEXES LOW VOLTAGE QRS, CONSIDER PULMONARY DISEASE, PERICARDIAL EFFUSION, OR NORMAL VARIANT ST & LATERAL T WAVE ABNORMALITY INCOMPLETE LEFT BUNDLE BRANCH BLOCK ABNORMAL ECG Confirmed by ANTOINETTE HOOKS MD ([id number]) on 04/15/2025 7:12:01 AM Narrative [facility] - 04/15/2025 7:12 AM EDT NAME : JOSÉ MIGUEL ANTONIO PID : [id number] : 1940 Gender : Male Race : ORD : [id number] Procedure Date : Mar 03 2025 14:22:17 [...] Referred By : , Acquired by : [id number], us Mariana Eriberto YOUNG EKG Final Result [facility] [place] [id number] * EPS: CARDIOVERSION (03/03/2025 1:56 PM EDT) 03/03/2025 1:56 PM EDT [facility] - 03/03/2025 2:09 PM EDT Final Report Cardiac Electrophysiology Laboratory [address] [place] [address] The entire procedure was performed by the [...] months LV function: ECHO: Ejection fraction 0.16 [id number] risk score: 5 Congestive heart failure/LV dysfunction: 1 Hypertension: 1 Age >= 75 years: 2 Diabetes mellitus: 0 Stroke, TIA, or thromboembolism: 0 Vascular disease (prior VT/CAD, PAD or aortic plaque): 1 Age 65-74 years: 0 Sex, female: 0 Duration of arrhythmia: 2 weeks Duration of anticoagulation: > 1 year Patient: [id number] JOSÉ MIGUEL ANTONIO Lab Staff: SHAWN CAZARES MD Lab Fellow: Referring Physician: CARMELA KINNEY MD us Shawn Cazares MD SCHEDULED PROCEDURES Final R esult [facility] [address] [place] [address] * (ABNORMAL) COMPREHENSIVE METABOLIC PANEL (03/03/2025 11:03 AM EDT) Protein, Total 7.2 6.3 - 8.0 g/dL 03/03/2025 11:40 AM [facility] Albumin 3.9 3.9 - 4.9 g/dL 03/03/2025 11:40 AM [facility] Calcium, Total 9.5 8.5 - 10.2 mg/dL 03/03/2025 11:40 AM [facility] Bilirubin, Total 1.8(H) 0.2 - 1.3 mg/dL 03/03/2025 11:40 AM [facility] Alkaline Phosphatase 125(H) 38 - 113 U/L 03/03/2025 11:40 AM [facility] AST 20 14 - 40 U/L 03/03/2025 11:40 AM [facility] ALT 14 10 - 54 U/L 03/03/2025 11:40 AM [facility] Glucose 106(H) 74 - 99 mg/dL 03/03/2025 11:40 AM [facility] Comment: The [place] Diabetes Association (ADA) provides guidance for cutoff [...] Standards of Medical Care in Diabetes 2016, [place] Diabetes Association. Diabetes Care. 2016.39(Suppl 1). BUN 59(H) 9 - 24 mg/dL 03/03/2025 11:40 AM [facility] Creatinine 2.46(H) 0.73 - 1.22 mg/dL 03/03/2025 11:40 AM [facility] Sodium 138 136 - 144 mmol/L 03/03/2025 11:40 AM [facility] Potassium 5.4(H) 3.7 - 5.1 mmol/L 03/03/2025 11:40 AM [facility] Chloride 101 98 - 107 mmol/L 03/03/2025 11:40 AM EDT [facility] CO2 24 22 - 30 mmol/L 03/03/2025 11:40 AM EDT [facility] Anion Gap 13 8 - 15 mmol/L 03/03/2025 11:40 AM EDT [facility] Estimated Glomerular Filtration Rate 25(L) >=60 mL/min/1. 73m 03/03/2025 11:40 AM EDT [facility] Comment:Estimated Glomerular Filtration Rate (eGFR) is [...] 11:03 AM EDT 03/03/2025 11:20 AM EDT Mariana Eriberto YOUNG LABORATORY Final Result [facility] [address] [place] [address], * ECG COMPLETE (03/03/2025 10:59 AM EDT) Ventricular Rate [address] [facility] QRS Duration 122 ms [facility] QT Interval 280 ms [facility] QTC Calculation (Bazett) 414 ms [facility] Calculated R [place] -13 degrees [facility] Calculated T [place] 153 degrees [facility] 03/03/2025 10:5 9 AM EDT Impressions [facility] - 03/25/2025 1:48 PM EDT ATRIAL FIBRILLATION WITH RAPID VENTRICULAR RESPONSE COMPLETE LEFT BUNDLE BRANCH BLOCK ABNORMAL ECG Confirmed by SULLY ZAMORA M.D. ([id number]) on 03/25/2025 1:47:29 PM Narrative [facility] - 03/25/2025 1:48 PM EDT NAME : JOSÉ MIGUEL ANTONIO PID : [id number] : 1940 Gender : Male Race : ORD : [id number] Procedure Date : Mar 03 2025 10:59:46 [...] Referred By : , Acquired by : [id number], us Mariana Eriberto YOUNG EKG Final Result [facility] [address] [place] [address] * CARDIAC IMPLANTABLE DEVICE CHECK REMOTE (03/02/2025 4:01 AM EDT) Date Time Interrogation Session [id number] MURJ CARDIAC Type Interrogation Session Remote MURJ CARDIAC Implantable Pulse Generator Pole Climber [employer] MURJ CARDIAC Implantable Pulse Generator Type Defibrillator MURJ CARDIAC Implantable Pulse Generator Model D142 MURJ CARDIAC Implantable Pulse Generator Serial Number [id number] MURJ CARDIAC Implantable Pulse Generator Implant Date [...] Setting Pacing Pulse Width 0.5 MURJ CARDIAC Jb Setting Mode (NBG Code) DDDR MURJ CARDIAC Bj Setting Lower Rate Limit 50 MURJ CARDIAC Bj Setting AT Mode Switch Rate 150 MURJ CARDIAC Bj Setting Maximum Tracking Rate 130 MURJ CARDIAC Bj Setting Maximum Sensor Rate 130 MURJ CARDIAC Bj Setting PAV Delay 200 MURJ CARDIAC Bj Setting ABDULLAHI Delay 170 MURJ CARDIAC Therapy Statistic Recent Shocks Delivered 0 [facility] Therapy Statistic Recent Shocks Aborted 0 MURJ CARDIAC Therapy Statistic Recent ATP Delivered 0 MURJ CARDIAC Shock Measured Impedance 40 MURJ CARDIAC Lead Channel Setting Sensing Polarity Bipolar MURJ CARDIAC Lead Channel Setting Sensing Polarity Bipolar [facility] Lead Channel Setting Pacing Polarity Bipolar [facility] Lead Channel Setting Pacing Polarity Bipolar [facility] Lead Channel Pacing Threshold Polarity Bipolar [facility] Lead Channel Pacing Threshold Polarity Bipolar MUR CARDIAC Zone Setting Type Category VF MURJ CARDIAC Rate 1 240 MURJ CARDIAC Therapies Burst,41J,41J,41J x 6 MURJ CARDIAC Zone Setting Status On [facility] Zone ID 1 MUR CARDIAC Zone Setting Type Category VT MURJ CARDIAC Rate 1 200 MURJ CARDIAC Therapies 2 x Burst,41J,41J,41J x 4 MURJ CARDIAC Zone Setting Status On [facility] ID 2 [facility] Setting Type Category VT MURJ CARDIAC Rate 1 175 MURJ CARDIAC Therapies 3 x Burst,41J,41J,41J x 3 MURJ CARDIAC Zone Setting Status On [facility] Zone ID 3 [facility] Implantable Lead Pole [employer] [facility] Implantable Lead Model 7741 Ingevity MRI [facility] Implantable Lead Location Right Atrium [facility] Implantable Lead Connection Status Connected [facility] Implantable Lead Serial Number [id number] [facility] Implantable Lead Implant Date [id number] [facility] Implantable Lead Pole [employer] [facility] Implantable Lead Model 0675 [facility] Implantable Lead Location Right Ventricle [facility] Implantable Lead Connection Status Connected [facility] Implantable Lead Serial Number [id number] [facility] Implant[facility] Lead Implant Date [id number] [facility] Implantable Lead Polarity Type Unknown [facility] 03/02/2025 4:01 AM EDT Narrative [facility] - 03/02/2025 8:49 PM EDT Tachycardia: AF *AF re-assessment, scheduling for DCC 03/03* * Presenting EGM: AF/VS * Stored EGMs are consistent with or suggestive of Atrial Fibrillation * Total number of events: Ongoing since at least 02/28 *Diagnostics: *AP 2%, TALENT SOURCER 6%, AT/AF burden N/R* Additional Notes: Dr. [...] since at least 02/28 *Diagnostics: *AP 2%, TALENT SOURCER 6%, AT/AF burden N/R* Additional Notes: Dr. [...] PM EDT) 03/01/2025 12:5 2 PM EDT [facility] - 03/01/2025 10:37 PM EDT Non-Invasive Vascular Laboratory [facility] J35 Carotid Duplex Bilateral/Complete Date of [...] criteria are used as recommended by [facility]. When compared with the prior [...] stenosis. Technologist: Lewis Brady RVT Ordering physician: LUSÍ SKINNER FITNESS AND WELLNESS MANAGER Interpreting physician: Yusuf Bernard MD Final See Link below for Image us [facility] Provider VASCULAR LAB Final Result [facility] [address] [place] [address] * CARDIAC IMPLANTABLE DEVICE CHECK (03/01/2025 11:26 AM EDT) Date Time Interrogation Session [id number] MURJ CARDIAC Implantable Pulse Generator Pole [employer] MURJ CARDIAC Implantable Pulse Generator Type Defibrillator MURJ CARDIAC Implantable Pulse Generator Model D142 MURJ CARDIAC Implantable Pulse Generator Serial Number [id number] MURJ CARDIAC Implantable Pulse Generator Implant Date [id number] MURJ CARDIAC Battery Status MONIKA MURJ CARDIAC Bj Statistic RA Percent Paced 1.00 MURJ CARDIAC Bj Statistic RV Percent Paced 1.00 MURJ CARDIAC Atrial Tachy Statistic AT/AF [place] Percent 1.00 MURJ CARDIAC Lead Channel Sensing [...] 41J MURJ CARDIAC Zone Setting Status On MUR CARDIAC Zone ID 1 MURJ CARDIAC Zone Setting Type Category VT MURJ CARDIAC Rate 1 200 MURJ CARDIAC Therapies 41J, 41J MURJ CARDIAC Zone Setting Status On [facility] ID 2 MURJ CARDIAC Zone Setting Type Category VT1 MURJ CARDIAC Rate 1 175 MURJ CARDIAC Therapies 41J, 41J MURJ CARDIAC Zone Setting Status On [facility] Zone ID 3 [facility] Implantable Lead Pole [employer] [facility] Implantable Lead Model 7741 Ingevity MRI [facility] Implantable Lead Location Right Atrium [facility] Implantable Lead Connection Status Connected [facility] Implantable Lead Serial Number [id number] [facility] Implantable Lead Implant Date [id number] [facility] Implantable Lead Pole [employer] [facility] Implantable Lead Model 0675 [facility] Implantable Lead Location Right Ventricle [facility] Implantable Lead Connection Status Connected [facility] Implantable Lead Serial Number [id number] [facility] Implantable Lead Implant Date [id number] [facility] 03/01/2025 11:2 6 AM EDT Narrative [facility] - 03/01/2025 10:06 PM EDT In-Office Device Evaluation OPD with Dr. Carvalho * Device type: BST dual lead ICD * Presenting Rhythm: AF/VS-TALENT SOURCER * Underlying Rhythm: AF with variable ventricular [...] or infection. * Other Diagnostics: *AP 1%, TALENT SOURCER <1%, AT/AF burden 1% (however likely higher d/t DDIR programming)* Tachycardia: AF * Stored EGMs are consistent with or suggestive of Atrial Fibrillation, intermittent RVR observed on stored episodes * AT/AF [place]: 1% * OAC: Eliquis Appropriate VT Therapy: [...] BST dual lead ICD * Presenting Rhythm: AF/VS-TALENT SOURCER * Underlying Rhythm: AF with variable ventricular [...] or infection. * Other Diagnostics: *AP 1%, TALENT SOURCER <1%, AT/AF burden 1% (however likelyhigher d/t DDIR programming)* Tachycardia: AF * Stored EGMs are consistent with or suggestive of Atrial Fibrillation,intermittent RVR observed on stored episodes * AT/AF [place]: 1% * OAC: Eliquis Appropriate VT Therapy: [...] under Scanned Documents . us [facility] [place] Provider CARDIOLOGY F inal Result MURJ CARDIAC * ECG COMPLETE (03/01/2025 10:52 AM EDT) Ventricular Rate 106 BPM [facility] QRS Duration 122 ms [facility] QT Interval 298 ms [facility] QTC Calculation (Bazett) 395 ms [facility] Calculated R [place] 1 degrees [facility] Calculated T [place] 155 degrees [facility] 03/01/2025 10:5 2 AM EDT Impressions [facility] - 03/25/2025 1:48 PM EDT ATRIAL FIBRILLATION WITH RAPID VENTRICULAR RESPONSE WITH FREQUENT VENTRICULAR-PACED COMPLEXES AND WITH PREMATURE VENTRICULAR COMPLEXES NONSPECIFIC INTRAVENTRICULAR CONDUCTION DELAY MINIMAL VOLTAGE CRITERIA FOR LVH, MAY BE NORMAL VARIANT ( Sweet product ) NONSPECIFIC ST AND T WAVE ABNORMALITY ABNORMAL ECG Confirmed by SULLY ZAMORA M.D. ([id number]) on 03/25/2025 1:47:29 PM Narrative [facility] - 03/25/2025 1:48 PM EDT NAME : JOSÉ MIGUEL ANTONIO PID : [id number] : 1940 Gender : Male Race : ORD : [id number] Procedure Date : Mar 01 2025 10:52:23 Edit Date : Mar 25 2025 13:48:05 Diagnosis: ATRIAL FIBRILLATION WITH RAPID VENTRICULAR RESPONSE WITH FREQUENT VENTRICULAR-PACED COMPLEXES AND WITH PREMATURE VENTRICULAR COMPLEXES NONSPECIFIC INTRAVENTRICULAR CONDUCTION DELAY MINIMAL VOLTAGE CRITERIA FOR LVH, MAY BE NORMAL VARIANT ( Sweet product ) NONSPECIFIC ST AND T WAVE ABNORMALITY ABNORMAL ECG Confirmed by SULLY ZAMORA M.D. ([id number]) on 03/25/2025 1:47:29 PM Test Reason : Location : 314 : J14 J14 Overread By : SULLY ZAMORA M.D. Edited By : SULLY ZAMORA M.D. Referred By : MARIANA CARVALHO by : JUHI GO us Jetrho Mendoza MD EKG Final Result Performing Organization Address [facility] Co de Phone Number [facility] [address] [place], [place] [id number] * EXTERNAL LAB (02/24/2025 10:04 AM EDT) Only the most recent of2 resultswithin the time period is included. us External Provider PA-C LABORATORY Final Res ult * HEMOGLOBIN A1C (09/18/2024 4:51 AM EST) Hemoglobin A1C 5.5 4.3 - 5.6 % 09/18/2024 8:23 AM EST [facility] Comment:[employer] Diabetes As sociation guidelines indicate that patients with HgbA1c in the range 5.7-6.4% are at increased risk for development of diabetes, and intervention by lifestyle modification may be beneficial. HgbA1c greater or equal to 6.5% is considered diagnostic of diabetes. Estimated Average Glucose 111 mg/dL 09/18/2024 8:23 AM EST [facility] Comment:eAG: (Estimated aver age glucose) is a calculated value from HgbA1c and is mortician supplies sales representative of the average blood glucose level in the last 2-3 month period. Blood BLOOD SPECIMEN / Unknown Venipuncture / Unknown 09/18/2024 4:51 AM EST 09/18/2024 6:28 AM EST us Hector Juan MD LABORATORY Final Res ult [facility] [place] [address], [place] * COLONOSCOPY (THERAPEUTIC) (05/14/2024 4:09 PM EDT) Anatomical Region Laterality Modality Other 05/14/2024 4:09 PM EDT Narrative 05/15/2024 2:37 PM EDT Q3 Patient Name: José Miguel Antonio Procedure Date: 05/14/2024 4:09 PM Date of : 1940 Admit Type: Inpatient Age: 84 Gender: Male Note Status: Finalized Attending MD: Vel Carpio MD, [id number] Procedure: Colonoscopy Indications: Hematochezia Providers: Vel Carpio [...] the patient. Procedure Code(s): --- Professional --- 28537, Colonoscopy, flexible; diagnostic, including collection of specimen(s) by brushing or washing, when performed (separate procedure) CPT copyright 2020 [employer]. All rights reserved. Attending Participation: [...] Nonfasting 118 <200 mg/dL 02/16/2024 2:44 PM T [facility] Comment: <200 mg/dL, Desirable 200-239 mg/dL, Borderline high >239 mg/dL, High Triglycerides, Nonfasting 74 <150 mg/dL 02/16/2024 2:44 PM EDT [facility] Comment: <150 mg/dL, Normal 150-199 mg/dL, Borderline high 200-499 mg/dL, High >499 mg/dL, Very high HDL Cholesterol, Nonfasting 28(L) >39 mg/dL 02/16/2024 2:44 PM T [facility] Comment: 40-59 mg/dL, Acceptable >59 mg/dL, High: Negative risk factor for coronary heart disease <40 mg/dL, Low: Positive risk factor for coronary heart disease LDL Cholesterol Calculated, Nonfasting 75 <100 mg/dL 02/16/2024 2:44 PM T [facility] Comment: <100 mg/dL, Optimal 100-129 mg/dL, Near optimal/above optimal 130-159 mg/dL, Borderline high 160-189 mg/dL, High >189 mg/dL, Very high Secondary prevention optimal LDL Cholesterol levels are recommended to be < 70 mg/dL Non HDL Cholesterol, Nonfasting 90 <130 mg/dL 02/16/2024 2:44 PM EDT [facility] Comment: <130 mg/dL, Optimal 130-159 mg/dL, Near optimal/above optimal 160-189 mg/dL, Borderline high 190-219 mg/dL, High >219 mg/dL, Very high Secondary prevention optimal non HDL Cholesterol levels are recommended to be <100 mg/dL VLDL Cholesterol, Nonfasting 15 <30 mg/dL 02/16/2024 2:44 PM EDT [facility] Total Chol/HDL Ratio, Nonfasting 4.21 <5.10 mg/dL 02/16/2024 2:44 PM EDT [facility] LDL/HDL Ratio, Nonfasting 2.68(H) <2.54 mg/dL 02/16/2024 2:44 PM EDT [facility] Comment: Reference: 1. National Cholesterol Education Program ATP III Guideline At-A-Glance Quick Desk Reference: National Heart, Lung, and Blood [place]. National Institutes of Health. 2001: NIH Publication No. 01-3305. 2. An International Atherosclerosis Society position paper: global recommendations for the management of dyslipidemia: executive summary, Atherosclerosis. 2014: 232(2):410-413. Blood BLOOD SPECIMEN / Unknown Venipuncture / Unknown 02/16/2024 10:30 AM EDT 02/16/2024 10:54 AM EDT us Leonardo Nino MD LABORATORY Final Result [facility] [address] [facility] [address] [place] [address], from Last 3 Months or Most Recently Relevant to Health Maintenance Insurance Rd [address] [place], [place] [id number] MEDICARE [address] MEDICARE SUPPLEMENT * Guarantor: José Miguel Antonio Jr. Account Type Relation to Patient Date of Phone Billing Address Self Pay Self 1940 [address] [address] * Guarantor: [facility] Account Type Relation to Patient Date of [...] Code Order Discussed With: Patient Care Teams Hydrodynamics Professor Relationship Specialty Start Date End Date Samm Serrano MD PCP - General Family Medicine 05/30/12 Tom Gonzalez [address] [address] Primary Staff Physician Cardiology 12/02/18 Andreas Pierre MD [address] [place] [address] Primary Staff Physician Cardiology 04/26/23 Virgil Carrillo MD [address] [place] [address] Primary Staff Physician Cardiology 10/29/23 Jethro Mendoza MD [address] [place] [address] Primary Staff Physician Cardiology 12/26/23 Carmela Kinney MD [address] [place] [address] Primary Staff Physician Cardiology 01/10/24
--- OUTSIDE RECORDS SUMMARY | 2025-05-12 14:03 | XMS_ITS | Encounter Summary ---
Author Organization [facility] Address [address] [place] [address] Care Team Providers Care Patient Appointment Coordinator Name Role Phone Samm Serrano MD Primary Care Provider +-4 Tom Gonzalez Unavailable [phone] Andreas Pierre MD Unavailable Virgil Carrillo MD Unavailable Jethro Mendoza MD Unavailable Isaías Kinney MD Unavailable [phone] Source Comments In the event this [...] Description 08/03/2024 Get Medical Advice Cardiology [address] [place] [address] Isaías Kinney MD [address] [place] [address] Hospital Stay Follow Up Social History Tobacco Use Types Packs/Day Years Used Date Smoking Tobacco: Former Cigarettes 1 10 0 04/28/1972 - 04/28/1982 Pipe Passive Smoke Exposure: Never Smokeless Tobacco: Never Alcohol Use Standard Drinks/Week Comments Yes 0 (1 standard drink = 0.6 oz pur e alcohol) rarely [facility] Utilities Answer Date Recorded In the [...] [email or web address] Last address used for calculation [address] 02/05/2024 Sex and [...] Assessment Author No 05/16/2024 2:47 PM EDT Campso Mina RN * Because of a physical, [...] 06/30/2025 10:00 AM EDT Office Visit Cardiology [address] [place] [address] Isaías Kinney MD [address] [place], [place] [phone] DX: Chronic diastolic heart failure 09/20/2025 8:15 AM EST Procedure Cardiology [address] [place] [address] Dx. Atherosclerotic heart disease of [place] coronary artery with other forms of angina pectoris 09/20/2025 9:00 AM EST Appointment Cardiology [address] [place] [address] Dx. Atherosclerotic heart disease of [place] coronary artery with other forms of angina pectoris 09/20/2025 9:45 AM EST Office Visit Cardiology [address] [place] [address] Nj Wei MD [address] [place] [address] Dx. Atherosclerotic heart disease of [place] coronary artery with other forms of angina pectoris documented as of this encounter Goals Goal Patient Goal Type Associated Problems Recent Progress Patient-Stated? Author Blood Pressure < 130/80 Blood Pressure 134/63( 025 3:00 PM EDT) No Lidia Lo, ARIES documented as of this encounter Visit Diagnoses Not on filedocumented in this encounter Care Teams Patient Appointment Coordinator Relationship Specialty Start Date End Date Samm Serrano MD PCP - General Family Medicine 05/30/12 Tom Gonzalez [address] [place] [address] Primary Staff Physician Cardiology 12/02/18 Andreas Pierre MD [address] [place] [address] Primary Staff Physician Cardiology 04/26/23 Virgil Carrillo MD [address] [place] [address] Primary Staff Physician Cardiology 10/29/23 Jethro Mendoza MD [address] [place] [address] Primary Staff Physician Cardiology 12/26/23 Isaías Kinney MD [address] [place] [address] Primary Staff Physician Cardiology 01/10/24 documented as of this encounter
--- OUTSIDE RECORDS SUMMARY | 2025-05-12 14:03 | XMS_ITS | Encounter Summary ---
Author Organization [facility] Address [address] [place] [address] Care Team Providers Care Breading Machine Tender Name Role Phone Samm Serrano MD Primary Care Provider +-4 Tom Gonzalez Unavailable [phone] Andreas Pierre MD Unavailable Virgil Carrillo MD Unavailable Jethro Mendoza MD Unavailable Isaías Kinney MD Unavailable [phone] Source Comments In the event this information is protected by the Federal Confidentiality of Alcohol and Drug AbusePatient Records regulations: The Federal rules restrict any use of the information to criminally investigate or prosecute any alcohol or drug abuse patient.[facility] Encounter Details Date Type Department Care Team (Late st Contact Info) Description 07/10/2024 Get Medical Advice Cardiology [address] [place] [address] Isaías Kinney MD [address] [place] [address] Medication Question Social History Tobacco Use Types Packs/Day Years Used Date Smoking Tobacco: Former Cigarettes 1 10 0 04/28/1972 - 04/28/1982 Pipe Passive Smoke Exposure: Never Smokeless Tobacco: Never Alcohol Use Standard Drinks/Week Comments Yes 0 (1 standard drink = 0.6 oz pur e alcohol) rarely [facility] Utilities Answer Date Recorded In [...] is lower risk 3 02/05/2024 Data from: https://www.neighborhoodatlas.medicine.[facility].edu/. Last address used for calculation [address] [place] [address] [address] 02/05/2024 Sex and Gender Information [...] 06/30/2025 10:00 AM EDT Office Visit Cardiology [address] [place] [address] Isaías Kinney MD [address] [place] [address] DX: Chronic diastolic heart failure 09/20/2025 8:15 AM EST Procedure Cardiology [address] [place] [address] Dx. Atherosclerotic heart disease of [place] coronary artery with other forms of angina pectoris 09/20/2025 9:00 AM EST Appointment Cardiology [address] [place] [address] Dx. Atherosclerotic heart disease of [place] coronary artery with other forms of angina pectoris 09/20/2025 9:45 AM EST Office Visit Cardiology [address] [place] [address] Nj Wei MD [address] [place] [address] Dx. Atherosclerotic heart disease of [place] coronary artery with other forms of angina pectoris documented as of this encounter Goals Goal Patient Goal Type Associated Problems Recent Progress Patient-Stated? Author Blood Pressure < 130/80 Blood Pressure 134/63( 025 3:00 PM EDT) No Lidia Lo, ARIES documented as of this encounter Visit Diagnoses Not on filedocumented in this encounter Care Teams Breading Machine Tender Relationship Specialty Start Date End Date Samm Serrano MD PCP - General Family Medicine 05/30/12 Tom Gonzalez [address] [place] [address] Primary Staff Physician Cardiology 12/02/18 Andreas Pierre MD [address] [place] [address] Primary Staff Physician Cardiology 04/26/23 Virgil Carrillo MD [address] [place] [address] Primary Staff Physician Cardiology 10/29/23 Jethro Mendoza MD [address] [place] [address] Primary Staff Physician Cardiology 12/26/23 Isaías Kinney MD [address] [place] [address] Primary Staff Physician Cardiology 01/10/24 documented as of this encounter
--- OUTSIDE RECORDS SUMMARY | 2025-05-12 14:03 | XMS_ITS | Encounter Summary ---
Author Organization [facility] Address [address] [place] [address] Care Team Providers Care Sr. Social Media & Mobile Manager Name Role Phone Samm Serrano MD [...] or prosecute any alcohol or drug abuse patient.[facility] Encounter Details Date Type Department Care Team (Late st Contact Info) Description 05/18/2021 Get Medical Advice Cardiology [address] [place] [phone] Andreas Pierre MD [address] [place] [address] RE: Upcoming Appointment Question Social History Tobacco [...] N ot on file 08/21/2020 Data from: https://www.neighborhoodatlas.medicine.[facility].edu/. Last address used for calculation Not on [...] 06/30/2025 10:00 AM EDT Office Visit Cardiology [address] [place] [address] Isaías Kinney MD [address] [place] [address] DX: Chronic diastolic heart failure 09/20/2025 8:15 AM EST Procedure Cardiology [address] [place] [address] Dx. Atherosclerotic heart disease of [place] coronary artery with other forms of angina pectoris 09/20/2025 9:00 AM EST Appointment Cardiology [address] [place] [address] Dx. Atherosclerotic heart disease of [place] coronary artery with other forms of angina pectoris 09/20/2025 9:45 AM EST Office Visit Cardiology [address] [place] [address] Nj Wei MD [address] [place] [address] Dx. Atherosclerotic heart disease of [place] coronary artery with other forms of angina pectoris documented as of this encounter Visit Diagnoses Not on filedocumented in this encounter Care Teams Sr. Social Media & Mobile Manager Relationship Specialty Start Date End Date Samm Serrano MD PCP - General Family Medicine 05/30/12 Tom Gonzalez [address] [place] [address] Primary Staff Physician Cardiology 12/02/18 Andreas Pierre MD [address] [place] [address] Primary Staff Physician Cardiology 04/26/23 Virgil Carrillo MD [address] [place] [address] Primary Staff Physician Cardiology 10/29/23 Jethro Mendoza MD [address] [facility] [address] Primary Staff Physician Cardiology 12/26/23 Isaías Kinney MD [address] [place] [address] Primary Staff Physician Cardiology 01/10/24 documented as of this encounter
--- OUTSIDE RECORDS SUMMARY | 2025-05-12 14:03 | XMS_ITS | Encounter Summary ---
Author Organization [facility] Address [address] [place] [address] Care Team Providers Care Sound Tester Name Role Phone Samm Serrano MD Primary Care Provider [phone] Tom Gonzalez Unavailable [phone] Andreas Pierre MD Unavailable Virgil Carrillo MD Unavailable Jethro Mendoza MD Unavailable Isaías Kinney MD Unavailable [phone] Source Comments In the event this information is protected by the Federal Confidentiality of Alcohol and Drug AbusePatient Records regulations: The Federal rules restrict any use of the information to criminally investigate or prosecute any alcohol or drug abuse patient.[facility] Encounter Details Date Type Department Care Team (Latest Contact Info) Description 06/14/2024 Get Medical Advice Cardiology [address] [place] [address] Isaías Kinney MD [address] [place] [address] Eliquis prescription Social History Tobacco Use Types [...] is lower risk 3 02/05/2024 Data from: https://www.neighborhoodatlas.medicine.[facility].edu/. Last address used for calculation [address] 02/05/2024 Sex and [...] 10:00 AM EDT Office Visit Cardiology [address] [place] [address] Isaías Kinney MD [address] [place] [address] DX: Chronic diastolic heart failure 09/20/2025 8:15 AM EST Procedure Cardiology [address] [place] [address] Dx. Atherosclerotic heart disease of [place] coronary artery with other forms of angina pectoris 09/20/2025 9:00 AM EST Appointment Cardiology [address] [place] [address] Dx. Atherosclerotic heart disease of [place] coronary artery with other forms of angina pectoris 09/20/2025 9:45 AM EST Office Visit Cardiology [address] [place] [address] Nj Wei MD [address] [place] [address] Dx. Atherosclerotic heart disease of [place] coronary artery with other forms of angina pectoris documented as of this encounter Goals Goal Patient Goal Type Associated Problems Recent Progress Patient-Stated? Author Blood Pressure < 130/80 Blood Pressure 134/63( 025 3:00 PM EDT) No Lidia Lo, ARIES documented as of this encounter Visit Diagnoses Not on filedocumented in this encounter Care Teams Sound Tester Relationship Specialty Start Date End Date Samm Serrano MD PCP - General Family Medicine 05/30/12 Tom Gonzalez [address] [place] [address] Primary Staff Physician Cardiology 12/02/18 Andreas Pierre MD [address] [place] [address] Primary Staff Physician Cardiology 04/26/23 Virgil Carrillo MD [address] [place] [address] Primary Staff Physician Cardiology 10/29/23 Jethro Mendoza MD [address] [place] [address] Primary Staff Physician Cardiology 12/26/23 Isaías Kinney MD [address] [place] [address] Primary Staff Physician Cardiology 01/10/24 documented as of this encounter
--- OUTSIDE RECORDS SUMMARY | 2025-05-12 14:03 | XMS_ITS | Encounter Summary ---
Author Organization [facility] Address [address] [place] [address] Care Team Providers Care Personal Chef Name Role Phone Samm Serrano MD Primary Care Provider [phone] Tom Gonzalez Unavailable [phone] Andreas Pierre MD Unavailable Virgil Carrillo MD Unavailable Jethro Mendoza MD Unavailable Isaías Kinney MD Unavailable [phone] Source Comments In the event this information is protected by the Federal Confidentiality of Alcohol and Drug AbusePatient Records regulations: The Federal rules restrict any use of the information to criminally investigate or prosecute any alcohol or drug abuse patient.[facility] Reason for Visit * Reason Comments Follow Up Encounter Details Date Type Department Care Team (Late st Contact Info) Description 08/17/2024 Telephone Cardiology [address] [place] [address] Isaías Kinney MD [address] [place] [address] Follow Up Social History Tobacco Use Types Packs/Day Years Used Date Smoking Tobacco: Former Cigarettes 1 10 0 04/28/1972 - 04/28/1982 Pipe Passive Smoke Exposure: Never Smokeless Tobacco: Never Alcohol Use Standard Drinks/Week Comments Yes 0 (1 standard drink = 0.6 oz pur e alcohol) rarely [facility] Utilities Answer Date Recorded In the past [...] any time in the past 12 m [facility], were you homeless or living in a fci (including now)? Yes 07/22/2024 Area Deprivation Index Answer Date Rich rded National Score (1-100), lower number is lower ri sk 52 02/05/2024 State Score (1-10), lower number is lower risk 3 02/05/2024 Data from: https://www.neighborhoodatlas.medicine.[facility].edu/. Last address used for calculation [address] [place] [address] [address] 02/05/2024 Sex and Gender Information [...] rehab and have the order sent to [facility]. Shawanda Gomes RN August 17, 2024 2:46 PM * Telephone Encounter - Lindsay Ross - 08/17/2024 1:44 PM EST Patients daughter Charu called and wants you to know he is retaining water in his abs again. Has not gained weight and is doing the no eating again. Please call her at [phone]. Thank you, Lindsay documented in this encounter Plan of Treatment Upcoming Encounters Date Type Department Care Team (Latest Contact Info) Description 06/30/2025 10:00 AM EDT Office Visit Cardiology [address] [place] [address] Isaías Kinney MD [address] [place] [address] DX: Chronic diastolic heart failure 09/20/2025 8:15 AM EST Procedure Cardiology [address] [place] [address] Dx. Atherosclerotic heart disease of [place] coronary artery with other forms of angina pectoris 09/20/2025 9:00 AM EST Appointment Cardiology [address] [place] [address] Dx. Atherosclerotic heart disease of [place] coronary artery with other forms of angina pectoris 09/20/2025 9:45 AM EST Office Visit Cardiology [address] [place] [address] Nj Wei MD [address] [place] [address] Dx. Atherosclerotic heart disease of [place] coronary artery with other forms of angina pectoris documented as of this encounter Goals Goal Patient Goal Type Associated Problems Recent Progress Patient-Stated? Author Blood Pressure < 130/80 Blood Pressure 134/63( 025 3:00 PM EDT) Lidia Soto, ARIES documented as of this encounter Visit Diagnoses Not on filedocumented in this encounter Care Teams Personal Chef Relationship Specialty Start Date End Date Samm Serrano MD PCP - General Family Medicine 05/30/12 Tom Gonzalez [address] [place] [address] Primary Staff Physician Cardiology 12/02/18 Andreas Pierre MD [address] [place] [phone] Primary Staff Physician Cardiology 04/26/23 Virgil Carrillo MD [address] [place] [phone] Primary Staff Physician Cardiology 10/29/23 Jethro Mendoza MD [address] [place] [address] Primary Staff Physician Cardiology 12/26/23 Isaías Kinney MD [address] [place] [address] Primary Staff Physician Cardiology 01/10/24 documented as of this encounter
--- OUTSIDE RECORDS SUMMARY | 2025-05-12 14:04 | XMS_ITS | Clinical Summary ---
Author Organization [facility] Address [address] [place] [address] Care Team Providers Care Bag Sewer Name Role Phone Samm Serrano MD Primary Care Provider [phone] Allergies Active Allergy Reactions Criticality Noted Date [...] 5 mg by mouth in the morning. 03/15/2025 Active liothyronine (Cytomel) 5 MCG tablet Take 5 mcg by mouth in the morning. 03/16/2025 Active metoprolol tartrate (Lopressor) 25 MG tablet every 12 (twelve) hours Active potassium chloride CR (K-Tab) 20 MEQ ER tablet 01/13/2025 Active levothyroxine (Synthroid, Levoxyl) 100 MCG tablet 02/17/2025 Active Encounters Date Type Department Care Team Description 03/25/2025 3:30 PM EDT Procedure Visit [facility] [address] [place] [phone] Rohit Covington DPM Dystrophic nail (Primary Dx); Pain around toenail, right foot; Pain around toenail, left foot; Peripheral arterial disease 03/25/2025 Bamboo flowsheet [facility] [address] [place] [address] Rohit Covington DPM 03/25/2025 Travel from Last [...] Dermatology [address] [place] [address] Krystal Turner MD [address] [place] [address] 07/07/2025 1:00 PM EDT Procedure Visit [facility] [address] [place] [phone] Rohit Covington, DPPaulina [address] [place], [place] [phone] Insurance MEDICARE Member Subscriber Plan / Payer (Ef fective 2011-Present) Name:José Miguel Antonio Jr. Member ID:[id number] Relation to Subscriber:Self Name:José Miguel Antonio Jr. Subscriber ID:[id number] Payer ID:STATE Group ID:Not on file Type:Medicare Address: [place] [id number] [address] Care Teams Bag Sewer Relationship Specialty Start Date End Date Samm Serrano MD [address] [place] [phone] PCP - General Family Medicine 03/24/25
--- OUTSIDE RECORDS SUMMARY | 2025-05-12 14:04 | XMS_ITS | Encounter Summary ---
Author Organization [facility] [employer] [facility] tem Address [facility]-[id number] [address] [place] [address] Care Team Providers Care Law Enforcement Officer Name Role Phone Samm Serrano MD Primary Care Provider [phone] Encounter Details Date Type Department Care Team (Late st Contact Info) Description 01/15/[address] [facility] - Cardiac Rehab [address] [place] [phone] Sheila Finney RN Social History Tobacco Use [...] often do you attend chur ch or jain services? Never 08/17/2021 Do you [...] Answer Date Recorded Total Score 0 08/17/2021 [facility] [place] of Occupat ional Health - Occupational Stress [...] documented as of this encounter Care Teams Law Enforcement Officer Relationship Specialty Start Date End Date Samm Serrano MD PCP - General Family Medicine 02/26/24 documented as of this encounter
--- OUTSIDE RECORDS SUMMARY | 2025-05-12 14:04 | XMS_ITS | Encounter Summary ---
Author Organization [facility] [employer] tem Address [id number] [address] [place] [address] Care Team Providers Care Feed Project Engineer Name Role Phone Samm Serrano MD Primary Care Provider [phone] Encounter Details Date Type Department Care Team (Late st Contact Info) Description 02/01/2025 Lab Requisition [facility] - Lab [address] [place] [phone] Samm Serrano MD [address] [place] [address] 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 disease, or unspecified chronic kidney disease (CMS-HCC); Chronic systolic (congestive) heart failure ([facility]-HCC) Social History Tobacco Use Types Packs/Day [...] week 08/17/2021 How often do you attend [facility] or temple services? Never 08/17/2021 Do you belong to any clubs o r organizations such as restoration groups, unions, fraternal or athletic groups, or [...] Answer Date Recorded Total Score 0 08/17/2021 [facility] of Occupat ional Health - Occupational [...] Recorded Do you need help finding a [facility] and/or a training [...] - 11 x10E9/L 02/01/2025 2:21 PM EDT [facility] RBC Count 3.84(L) 4.1 - 5.7 X10E12/L 02/01/2025 2:21 PM EDT [facility] Hemoglobin 12.1(L) 13 - 17 g/dL 02/01/2025 2:21 PM EDT [facility] Hematocrit 35.9(L) 39 - 50 % 02/01/2025 2:21 PM EDT [facility] MCV 94 80 - 100 fL 02/01/2025 2:21 PM EDT [facility] MCH 31.4 27 - 34 pg 02/01/2025 2:21 PM EDT [facility] MCHC 33.6 32 - 36 g/dL 02/01/2025 2:21 PM EDT [facility] RDW 17.6(H) 11.5 - 15 % 02/01/2025 2:21 PM EDT [facility] Platelet Count 156 150 - 450 X10E9/L 02/01/2025 2:21 PM EDT [facility] MPV 8.3 7 - 12 fL 02/01/2025 2:21 PM EDT [facility] Neutrophils % 70.6 % 02/01/2025 2:21 PM EDT [facility] Lymphocytes % 12.2 % 02/01/2025 2:21 PM EDT [facility] Monocytes % 12.5 % 02/01/2025 2:21 PM EDT [facility] Eosinophils % 3.5 % 02/01/2025 2:21 PM EDT [facility] Basophils % 1.2 % 02/01/2025 2:21 PM EDT [facility] Neutrophils Absolute (A) 3.3 1.5 - 6.6 10*3/uL 02/01/2025 2:21 PM EDT [facility] Lymphocytes Absolute 0.6(L) 1.0 - 3.5 10*3/uL 02/01/2025 2:21 PM EDT [facility] Monocytes Absolute 0.6 0.0 - 0.9 10*3/uL 02/01/2025 2:21 PM EDT [facility] Eosinophils Absolute 0.2 0.0 - 0.4 10*3/uL 02/01/2025 2:21 PM EDT [facility] Basophils Absolute 0.1 0.0 - 0.2 10*3/uL 02/01/2025 2:21 PM EDT [facility] Differential Type AUTOMATED DIFFERENTIAL 02/01/2025 2:21 PM EDT [facility] Blood Venous blood / Unknown 02/01/2025 1:38 PM EDT 02/01/2025 2:16 PM EDT us Samm Serrano MD LAB BLOOD ORDERABLES Final Resu lt [facility] [address] [place] [address], * (ABNORMAL) Comprehensive metabolic panel (02/01/2025 1:38 PM EDT) SODIUM 134 134 - 146 mmol/L 02/01/2025 2:28 PM EDT [facility] POTASSIUM 4.1 3.5 - 5.0 mmol/L 02/01/2025 2:28 PM EDT [facility] CHLORIDE 103 98 - 109 mmol/L 02/01/2025 2:28 PM EDT [facility] CARBON DIOXIDE 21(L) 22 - 32 mmol/L 02/01/2025 2:28 PM EDT [facility] ANION GAP 10 5 - 15 mmol/L 02/01/2025 2:28 PM EDT [facility] BLOOD UREA NITROGEN 50(H) 5 - 27 mg/dL 02/01/2025 2:28 PM EDT [facility] CREATININE 2.47(H) 0.70 - 1.20 mg/dL 02/01/2025 2:28 PM EDT [facility] Comment:METHOD TRACEABLE TO IDMS STANDARD GLUCOSE 100(H) 65 - 99 mg/dL 02/01/2025 2:28 PM EDT [facility] CALCIUM 8.1(L) 8.5 - 10.5 mg/dL 02/01/2025 2:28 PM EDT [facility] TOTAL PROTEIN 7.0 6.0 - 8.0 g/dL 02/01/2025 2:28 PM EDT [facility] ALBUMIN 3.3 3.2 - 5.3 g/dL 02/01/2025 2:28 PM EDT [facility] ALKALINE PHOSPHATASE 103 39 - 130 U/L 02/01/2025 2:28 PM EDT [facility] AST 19 <=41 U/L 02/01/2025 2:28 PM EDT [facility] ALT 11 <=40 U/L 02/01/2025 2:28 PM EDT [facility] BILIRUBIN,TOTAL 1.3(H) 0.3 - 1.2 mg/dL 02/01/2025 2:28 PM EDT [facility] EGFR Non-Race Dependent 25(L) >=60 ml/min/1.7 3sq.m 02/01/2025 2:28 PM EDT [facility] Comment: eGFR not reported due to non-numeric value for Creatinine. Reported eGFR is based on the CKD-EPI 2020 equation that does not use a race coefficient. Blood Venous blood / Unknown 02/01/2025 1:38 PM EDT 02/01/2025 2:16 PM EDT us Samm Serrano MD LAB BLOOD ORDERABLES Final Resu lt [facility] [address] [place] [address] documented in this encounter Visit Diagnoses Diagnosis [...] documented as of this encounter Care Teams Feed Project Engineer Relationship Specialty Start Date End Date Samm Serrano MD PCP - General Family Medicine 02/26/24 documented as of this encounter
--- OUTSIDE RECORDS SUMMARY | 2025-05-12 14:04 | XMS_ITS | Encounter Summary ---
Author Organization [facility] [employer] [facility] tem Address [id number] [address] [place] [address] Care Team Providers Care Lcpc Name Role Phone Samm Serrano MD Primary Care Provider [phone] Encounter Details Date Type Department Care Team (Late st Contact Info) Description 01/14/2024 Telephone [facility] - Cardiac Rehab [address] [place] [phone] Sheila Finney RN Social History Tobacco Use [...] Answer Date Recorded Total Score 0 08/17/2021 [facility] [place] of Occupat ional Health - Occupational Stress [...] documented as of this encounter Care Teams Lcpc Relationship Specialty Start Date End Date Samm Serrano MD PCP - General Family Medicine 02/26/24 documented as of this encounter
--- OUTSIDE RECORDS SUMMARY | 2025-05-12 14:04 | XMS_ITS | Encounter Summary ---
Author Organization [facility] Address [id number] [address] [place] [address] Care Team Providers Care Type Disk Quality Control Supervisor Name Role Phone Samm Serrano MD Primary Care Provider [phone] Reason for Visit * Reason Onset Date Comments Med Refill 01/31/2022 Encounter Details Date Type Department Care Team (Late st Contact Info) Description 01/31/2022 Refill [facility] [address] [place] [address] Albertina Infante RMA Cerebrovascular accident [...] often do you attend chur ch or tenriism services? Never 08/17/2021 Do you belong to [...] Received refill [facility] el[facility]mg [facility] 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
--- OUTSIDE RECORDS SUMMARY | 2025-05-12 14:04 | XMS_ITS | Encounter Summary ---
Author Organization [facility] [employer] [facility] tem Address [facility][id number] [address] [place] [address] Care Team Providers Care Rack Production Worker Name Role Phone Samm Serrano MD Primary Care Provider [phone] Encounter Details Date Type Department Care Team (Late st Contact Info) Description 02/25/2024 Telephone [facility] - Cardiac Rehab [address] [place] [phone] Sheila Finney RN Social History Tobacco Use [...] Date Recorded Total Score 0 08/17/2021 [facility] of Occupat ional Health - Occupational Stress [...] documented as of this encounter Care Teams Rack Production Worker Relationship Specialty Start Date End Date Samm Serrano MD PCP - General Family Medicine 02/26/24 documented as of this encounter
--- OUTSIDE RECORDS SUMMARY | 2025-05-12 14:04 | XMS_ITS | Encounter Summary ---
Author Organization [facility] Address [address] [place] [address] Care Team Providers Care Molder Hand Name Role Phone Samm Serrano MD Primary Care Provider [phone] Tom Gonzalez Unavailable [phone] Andreas Pierre MD Unavailable Virgil Carrillo MD Unavailable Jethro Mendoza MD Unavailable Isaías Kinney MD Unavailable [phone] Source Comments In the event this information is protected by the Federal Confidentiality of Alcohol and Drug AbusePatient Records regulations: The Federal rules restrict any use of the information to criminally investigate or prosecute any alcohol or drug abuse patient.[facility] Encounter Details Date Type Department Care Team (Late st Contact Info) Description 09/28/2024 Patient Msg Radiation Oncology [address] [place] [address] [place] [address] Yung Andrade MD [address] [place] [address] Appointment Cancellation Request Social History Tobacco Use Types Packs/Day Years Used Date Smoking Tobacco: Former Cigarettes 1 10 0 04/28/1972 - 04/28/1982 Pipe Passive Smoke Exposure: Never Smokeless Tobacco: Never Alcohol Use Standard Drinks/Week Comments Not Currently 0 (1 standard drink = 0.6 oz pur e alcohol) rarely [facility] Utilities Answer Date Recorded In the [...] any time in the past 12 m [facility], were you homeless or living in a halfway (including now)? Yes 07/22/2024 Area Deprivation Index Answer Date Rich rded National Score (1-100), lower number is lower ri sk 52 02/05/2024 State Score (1-10), lower number is lower risk 3 02/05/2024 Data from: https://www.neighborhoodatlas.medicine.[facility].edu/. Last address used for calculation [address] 02/05/2024 Sex [...] Allyn Tuttle RN documented in this encounter Plan of Treatment Upcoming Encounters Date Type Department Care Team (Latest Contact Info) Description 06/30/2025 10:00 AM EDT Office Visit Cardiology [address] [place] [address] Isaías Kinney MD [address] [place], [place] [phone] DX: Chronic diastolic heart failure 09/20/2025 8:15 AM EST Procedure Cardiology [address] [place] [address] Dx. Atherosclerotic heart disease of [place] coronary artery with other forms of angina pectoris 09/20/2025 9:00 AM EST Appointment Cardiology [address] [place] [address] Dx. Atherosclerotic heart disease of [place] coronary artery with other forms of angina pectoris 09/20/2025 9:45 AM EST Office Visit Cardiology [address] [place] [address] Nj Wei MD [address] [place] [address] Dx. Atherosclerotic heart disease of [place] coronary artery with other forms of angina pectoris documented as of this encounter Goals Goal Patient Goal Type Associated Problems Recent Progress Patient-Stated? Author Blood Pressure < 130/80 Blood Pressure 134/63( 025 3:00 PM EDT) No Lidia Lo, ARIES documented as of this encounter Visit Diagnoses Not on filedocumented in this encounter Care Teams Molder Hand Relationship Specialty Start Date End Date Samm Serrano MD PCP - General Family Medicine 05/30/12 Tom Gonzalez [address] [place] [address] Primary Staff Physician Cardiology 12/02/18 Andreas Pierre MD [facility] [place] [address] Primary Staff Physician Cardiology 04/26/23 Virgil Carrillo MD [facility] [place] [address] Primary Staff Physician Cardiology 10/29/23 [place] [address] [place] [address] Primary Staff Physician Cardiology 12/26/23 Isaías Kinney MD [facility] [place] [phone] Primary Staff Physician Cardiology 01/10/24 documented as of this encounter
--- OUTSIDE RECORDS SUMMARY | 2025-05-12 14:04 | XMS_ITS ---
Author Organization [facility] tem Address [place]-[id number] [address] [place] [address] Care Team Providers Care Library Technical Assistant Name Role Phone Samm Serrano MD Primary Care Provider [phone] Active Problems Problem Noted Date Diagnosed Date [...] get clearance to take Viagra through his candles pourer. Both and patient are where the most contact candles pourer prior to taking the medication. Viagra 1/2 [...] clinical risk group is: Favorable intermediate risk [facility] Nomogram probability for Lymph Node Metastasis: 2% Location: bilateral Severity: moderate Quality: NCCN guidelines unfavorable intermediate risk Based on social security life tables patient is predicted life expectancy is: 10 yrs Baseline urinary function is: good Baseline sexual function is: cannot sustain erection Comorbidities: cardiac---SD, Has AICD ==== 07/17/2019 ==== patient follow-up [...] Referral to be made -per patient choice [facility]. Assessment & Plan (06/28/2021 1:59 [...]
--- OUTSIDE RECORDS SUMMARY | 2025-05-12 14:04 | XMS_ITS | Clinical Summary ---
Author Organization [facility] Address [address] [facility] [place] [address] Care Team Providers Care Truss Puller Helper Name Role Phone Unavailable Primary Care Provider [...]
--- OUTSIDE RECORDS SUMMARY | 2025-05-12 14:04 | XMS_ITS | Encounter Summary ---
Author Organization [facility] Address [address] [place] [address] Care Team Providers Care [employer] Name Role Phone Samm Serrano MD Primary Care Provider [phone] Encounter Details Date Type Department Care Team (Late st Contact Info) Description 04/28/[address] 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 Crain on 04/28/2025: The labs look a little bit better. Please have him increase Bumex to 3 mg in the morning and 2 mg in the afternoon. He should continue regular labs. Spoke with patient's daughter Charu and informed her of lab results. Also advised of Bumex increase per Dr. Crain. Bumex [facility] her [facility]. Daughter verbalized understanding. documented in this encounter Plan of Treatment Upcoming Encounters Date Type Department Care Team (Late st Contact Info) Description 06/21/2025 3:15 PM EDT Office Visit 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
--- OUTSIDE RECORDS SUMMARY | 2025-05-12 14:04 | XMS_ITS | Encounter Summary ---
Author Organization [facility] tem Address [id number] [address] [place] [address] Care Team Providers Care [employer] Setter Name Role Phone Samm Serrano MD Primary Care Provider [phone] Encounter Details Date Type Department Care Team (Late st Contact Info) Description 01/18/2025 Lab Requisition [facility] - Lab [address] [place] [phone] Samm Serrano MD [address] [place] [address] Hyperkalemia; 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 disease, or unspecified chronic kidney disease (CMS-HCC); Chronic systolic (congestive) heart failure (CMS-HCC); 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[facility]-HCC); Hypothyroidism, unspecified; Gout, unspecified Social History [...] you attend chur ch or hinduism services? Never 08/17/2021 Do you belong to [...] Date Recorded Total Score 0 08/17/2021 [facility]at [facility] - [...] kidney disease, or unspecified chronic kidney disease ([facility]-HCC) Chronic systolic (congestive) heart failure ([facility]-HCC) 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[facility]) Hypothyroidism, unspecified Gout, unspecified VITAMIN D 25 HYDROXY Routine 01/18/2025 12:19 PM EDT Hyperkalemia 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 disease, or unspecified chronic kidney disease (CMS-HCC) Chronic systolic (congestive) heart failure ([facility]-HCC) 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[facility]-H[facility]) Hypothyroidism, unspecified Gout, unspecified URIC ACID Routine 01/18/2025 12:19 PM EDT Hyperkalemia 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 disease, or unspecified chronic kidney disease (CMS-HCC) Chronic systolic (congestive) heart failure ([facility]-HCC) 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[facility]-HCC) Hypothyroidism, unspecified Gout, unspecified T3, FREE Routine 01/18/2025 12:19 PM EDT Hyperkalemia 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 disease, or unspecified chronic kidney disease (CMS-HCC) Chronic systolic (congestive) heart failure (CMS-HCC) 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[facility]-H[facility]) Hypothyroidism, unspecified Gout, unspecified B-TYPE NATRIURETIC PEPTIDE Routine 01/18/2025 12:19 PM EDT Hyperkalemia 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 disease, or unspecified chronic kidney disease (CMS-HCC) Chronic systolic (congestive) heart failure (CMS-HCC) 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[facility]-H[facility]) Hypothyroidism, unspecified Gout, unspecified MAGNESIUM Routine 01/18/2025 12:19 PM EDT Hyperkalemia 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 disease, or unspecified chronic kidney disease (CMS-HCC) Chronic systolic (congestive) heart failure (CMS-HCC) 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[facility]) Hypothyroidism, unspecified Gout, unspecified LIPID PROFILE Routine 01/18/2025 12:19 PM EDT Hyperkalemia 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 disease, or unspecified chronic kidney disease (CMS-HCC) Chronic systolic (congestive) heart failure (CMS-HCC) 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[facility]) Hypothyroidism, unspecified Gout, unspecified COMPREHENSIVE METABOLIC PANEL Routine 01/18/2025 12:19 PM EDT Hyperkalemia 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 disease, or unspecified chronic kidney disease (CMS-HCC) Chronic systolic (congestive) heart failure (CMS-HCC) 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[facility]) Hypothyroidism, unspecified Gout, unspecified documented in this encounter Results * (ABNORMAL) Lipid profile (01/18/2025 12:19 PM EDT) CHOLESTEROL 144(L) 150 - 200 mg/dL 01/19/2025 6:47 PM EDT [facility] TRIGLYCERIDE 51 27 - 150 mg/dL 01/19/2025 6:47 PM EDT [facility] HDL CHOLESTEROL 46 >39 mg/dL 6:47 PM EDT [facility] Comment: HDL <40 mg/dL - High Risk HDL > or = 40mg/dL- Desirable HDL >60 mg/dL - Negative Risk LDL (CALC) 88 <130 mg/dL 01/19/2025 6:47 PM EDT [facility] Comment: LDL <100 mg/dL - Desirable LDL >160 mg/dL - High Risk CHOLESTEROL:HDL 3.1 1.0 - 5.0 6:47 PM EDT [facility] VERY LOW LIPOPROTEIN 10 0 - 30 mg/dL 01/19/2025 6:47 PM EDT [facility] Blood Venous blood / Unknown Venipuncture / Unknown 01/18/2025 12:19 PM EDT 01/18/2025 1:34 PM EDT us Samm Serrano MD LAB BLOOD ORDERABLES Final Resu lt [facility] [address] [place] [address], [place] [phone] * Vitamin D 25 hydroxy (01/18/2025 12:19 PM EDT) VITAMIN D 25 HYD TOT 41.6 30.0 - 100.0 ng/mL 01/19/2025 7:06 PM EDT [facility] Blood Venous blood / Unknown Venipuncture / Unknown 01/18/2025 12:19 PM EDT 01/18/2025 1:34 PM EDT Narrative [facility] - 01/19/2025 7:06 PM EDT Vitamin D status 25 [place] Vitamin D Deficiency <20 ng/mL Insufficiency 20-29 ng/mL Sufficiency 30-100 ng/mL Toxicity >100 ng/mL NOTE: A pediatric reference range has not been established by the organ fixer of this kit. The [place] [employer] recommends a Vitamin D level of = or >20ng/mL in infants and children. us Samm Serrano MD LAB BLOOD ORDERABLES Final Resu lt [facility] [address] [place] [address], [place] [phone] * (ABNORMAL) Comprehensive metabolic panel (01/18/2025 12:19 PM EDT) SODIUM 134 134 - 146 mmol/L 01/18/2025 2:52 PM EDT [facility] POTASSIUM 3.9 3.5 - 5.0 mmol/L 01/18/2025 2:52 PM EDT [facility] CHLORIDE 102 98 - 109 mmol/L 01/18/2025 2:52 PM EDT [facility] CARBON DIOXIDE 23 22 - 32 mmol/L 01/18/2025 2:52 PM EDT [facility] ANION GAP 9 5 - 15 mmol/L 01/18/2025 2:52 PM EDT [facility] BLOOD UREA NITROGEN 58(H) 5 - 27 mg/dL 01/18/2025 2:52 PM EDT [facility] CREATININE 2.03(H) 0.70 - 1.20 mg/dL 01/18/2025 2:52 PM EDT [facility] Comment:METHOD TRACEABLE TO IDMS STANDARD GLUCOSE 93 65 - 99 mg/dL 01/18/2025 2:52 PM EDT [facility] CALCIUM 8.9 8.5 - 10.5 mg/dL 01/18/2025 2:52 PM EDT [facility] TOTAL PROTEIN 7.3 6.0 - 8.0 g/dL 01/18/2025 2:52 PM EDT [facility] ALBUMIN 3.5 3.2 - 5.3 g/dL 01/18/2025 2:52 PM EDT [facility] ALKALINE PHOSPHATASE 118 39 - 130 U/L 01/18/2025 2:52 PM EDT [facility] AST 24 <=41 U/L 01/18/2025 2:52 PM EDT [facility] ALT 12 <=40 U/L 01/18/2025 2:52 PM EDT [facility] BILIRUBIN,TOTAL 1.2 0.3 - 1.2 mg/dL 01/18/2025 2:52 PM EDT [facility] EGFR Non-Race Dependent 32(L) >=60 ml/min/1.7 3sq.m 01/18/2025 2:52 PM EDT [facility] Comment: eGFR not reported due to non-numeric value for Creatinine. Reported eGFR is based on the CKD-EPI 2020 equation that does not use a race coefficient. Blood Venous blood / Unknown Venipuncture / Unknown 01/18/2025 12:19 PM EDT 01/18/2025 1:34 PM EDT us Samm Serrano MD LAB BLOOD ORDERABLES Final Resu lt [facility] [address] [facility] [place] [address], * (ABNORMAL) Uric acid (01/18/2025 12:19 PM EDT) URIC ACID 11.4(H) 2.6 - 7.2 mg/dL 01/18/2025 2:51 PM EDT [facility] Blood Venous blood / Unknown Venipuncture / Unknown 01/18/2025 12:19 PM EDT 01/18/2025 1:34 PM EDT us Samm Serrano MD LAB BLOOD ORDERABLES Final Resu lt [address] [place] [address], [place] * (ABNORMAL) Thyroid profile includes TSH FT4 (01/18/2025 12:19 PM EDT) FREE T4 1.29 0.61 - 1.60 ng/dL 01/18/2025 2:51 PM EDT [facility] TSH 8.64(H) 0.49 - 4.67 uIU/mL 01/18/2025 2:51 PM EDT [facility] Blood Venous blood / Unknown Venipuncture / Unknown 01/18/2025 12:19 PM EDT 01/18/2025 1:34 PM EDT us Samm Serrano MD LAB BLOOD ORDERABLES Final Resu lt Performing Organization Address [facility]/ZIP Co de Phone Number [address] [place] [address], [place] * (ABNORMAL) T3, free (01/18/2025 12:19 PM EDT) FREE T3 2.15(L) 2.50 - 3.90 pg/mL 01/19/2025 6:53 PM EDT [facility] Blood Venous blood / Unknown Venipuncture / Unknown 01/18/2025 12:19 PM EDT 01/18/2025 1:34 PM EDT us Samm Serrano MD LAB BLOOD ORDERABLES Final Resu lt [facility] [address] [place] [address], [place] [phone] * Magnesium (01/18/2025 12:19 PM EDT) MAGNESIUM 2.6 1.8 - 2.6 mg/dL 01/18/2025 2:51 PM EDT [facility] Blood Venous blood / Unknown Venipuncture / Unknown 01/18/2025 12:19 PM EDT 01/18/2025 1:34 PM EDT us Samm Serrano MD LAB BLOOD ORDERABLES Final Resu lt Performing Organization Address City/[facility]/ZIP Co de Phone Number [address] [place] [address], * (ABNORMAL) B-type natriuretic peptide (01/18/2025 12:19 PM EDT) BNP 2,720(H) <=100 pg/mL 01/18/2025 2:51 PM EDT [facility] Blood Venous blood / Unknown Venipuncture / Unknown 01/18/2025 12:19 PM EDT 01/18/2025 1:34 PM EDT us Samm Serrano MD LAB BLOOD ORDERABLES Final Resu lt Performing Organization Address City/[facility]/ZIP Co de Phone Number [address] [place] [address], documented in this encounter Visit Diagnoses Diagnosis [...] documented as of this encounter Care Teams Septic Tank Setter Relationship Specialty Start Date End Date Samm Serrano MD PCP - General Family Medicine 02/26/24 documented as of this encounter
--- OUTSIDE RECORDS SUMMARY | 2025-05-12 14:04 | XMS_ITS | Encounter Summary ---
Author Organization [facility] my[employer] s tem Address [id number] [address] [place] [address] Care Team Providers Care [employer] Name Role Phone Samm Serrano MD Primary Care Provider [phone] Encounter Details Date Type Department Care Team (Late st Contact Info) Description 02/22/[address] [facility] - Lab [address] [place] [phone] Samm Serrano MD [address] [place] [address] 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 disease, or unspecified chronic kidney disease (CMS-HCC); Chronic systolic (congestive) heart failure ([facility]) Social History Tobacco Use Types [...] week 08/17/2021 How often do you attend [facility] or bah[employer] services? Never 08/17/2021 Do you belong to any clubs o r organizations such as baptism groups, unions, fraternal or athletic groups, or [...] Date Recorded Total Score 0 08/17/2021 [facility]at ional Health - Occupational [...] Do you need help finding a [facility] and/or a training [...] - 11 x10E9/L 02/22/2025 2:43 PM EDT [facility] RBC Count 3.63(L) 4.1 - 5.7 X10E12/L 02/22/2025 2:43 PM EDT [facility] Hemoglobin 11.3(L) 13 - 17 g/dL 02/22/2025 2:43 PM EDT [facility] Hematocrit 34.6(L) 39 - 50 % 02/22/2025 2:43 PM EDT [facility] MCV 95 80 - 100 fL 02/22/2025 2:43 PM EDT [facility] MCH 31.2 27 - 34 pg 02/22/2025 2:43 PM EDT [facility] MCHC 32.7 32 - 36 g/dL 02/22/2025 2:43 PM EDT [facility] RDW 17.7(H) 11.5 - 15 % 02/22/2025 2:43 PM EDT [facility] Platelet Count 139(L) 150 - 450 X10E9/L 02/22/2025 2:43 PM EDT [facility] MPV 8.4 7 - 12 fL 02/22/2025 2:43 PM EDT [facility] Neutrophils % 69.7 % 02/22/2025 2:43 PM EDT [facility] Lymphocytes % 10.4 % 02/22/2025 2:43 PM EDT [facility] Monocytes % 11.7 % 02/22/2025 2:43 PM EDT [facility] Eosinophils % 7.5 % 02/22/2025 2:43 PM EDT [facility] Basophils % 0.7 % 02/22/2025 2:43 PM EDT [facility] Neutrophils Absolute (A) 2.6 1.5 - 6.6 10*3/uL 02/22/2025 2:43 PM EDT [facility] Lymphocytes Absolute 0.4(L) 1.0 - 3.5 10*3/uL 02/22/2025 2:43 PM EDT [facility] Monocytes Absolute 0.4 0.0 - 0.9 10*3/uL 02/22/2025 2:43 PM EDT [facility] Eosinophils Absolute 0.3 0.0 - 0.4 10*3/uL 02/22/2025 2:43 PM EDT [facility] Basophils Absolute 0.0 0.0 - 0.2 10*3/uL 02/22/2025 2:43 PM EDT [facility] Differential Type AUTOMATED DIFFERENTIAL 02/22/2025 2:43 PM EDT [facility] Blood Venous blood / Unknown 02/22/2025 1:50 PM EDT 02/22/2025 2:25 PM EDT us Samm Serrano MD LAB BLOOD ORDERABLES Final Resu lt [facility] [address] [facility] [place] [address], * (ABNORMAL) Basic Metabolic Panel (02/22/2025 1:50 PM EDT) SODIUM 136 134 - 146 mmol/L 02/22/2025 3:14 PM EDT [facility] POTASSIUM 3.2(L) 3.5 - 5.0 mmol/L 02/22/2025 3:14 PM EDT [facility] CHLORIDE 101 98 - 109 mmol/L 02/22/2025 3:14 PM EDT [facility] CARBON DIOXIDE 23 22 - 32 mmol/L 02/22/2025 3:14 PM EDT [facility] ANION GAP 12 5 - 15 mmol/L 02/22/2025 3:14 PM EDT [facility] BLOOD UREA NITROGEN 47(H) 5 - 27 mg/dL 02/22/2025 3:14 PM EDT [facility] CREATININE 2.32(H) 0.70 - 1.20 mg/dL 02/22/2025 3:14 PM EDT [facility] Comment:METHOD TRACEABLE TO IDMS STANDARD GLUCOSE 154(H) 65 - 99 mg/dL 02/22/2025 3:14 PM EDT [facility] CALCIUM 8.5 8.5 - 10.5 mg/dL 02/22/2025 3:14 PM EDT [facility] EGFR Non-Race Dependent 27(L) >=60 ml/min/1.7 3sq.m 02/22/2025 3:14 PM EDT [facility] Comment: eGFR not reported due to non-numeric value for Creatinine. Reported eGFR is based on the CKD-EPI 2020 equation that does not use a race coefficient. Blood Venous blood / Unknown 02/22/2025 1:50 PM EDT 02/22/2025 2:25 PM EDT us Samm Serrano MD LAB BLOOD ORDERABLES Final Resu lt [facility] [address] documented in this encounter Visit Diagnoses [...] documented as of this encounter Care Teams [employer] Relationship Specialty Start Date End Date Samm Serrano MD PCP - General Family Medicine 02/26/24 documented as of this encounter
--- OUTSIDE RECORDS SUMMARY | 2025-05-12 14:04 | XMS_ITS | Clinical Summary ---
Author Organization [employer] tem Address [id number] [address] [place] [address] Care Team Providers Care Director Of Event Marketing Name Role Phone Samm Serrano MD Primary Care Provider [phone] Allergies Active Allergy Reactions Criticality Noted Date [...] Take 50 mg by mouth daily. Active kztcuok-saez-cuj [id number] 100 mg-150 mg- 50 mg-150 mg capsule [...] total) by mouth nightly. 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 Both and patient are where the most contact meteorology teacher prior to taking the medication. Viagra 1/2 [...] not to proceed. ==== 07/17/2019 ==== [employer] Grade: 3+ 4 equal 7 # of [...] Referral to be made -per patient choice [facility]. Assessment & Plan (06/28/2021 1:59 [...] Encounters Date Type Department Care Team Description 05/03/2025 Lab Requisition [facility] Lab [address] [place] [address] Samm Serrano MD Hyperkalemia; Non-ST elevation (NSTEMI) myocardial infarction (CMS-HCC); Heart failure, unspecified (CMS-HCC) 04/27/2025 Lab Requisition [facility] - Lab [address] [place] [address] Samm Serrano MD Hyperkalemia; Non-ST elevation (NSTEMI) myocardial infarction (CMS-HCC); Heart failure, unspecified (CMS-HCC); Gout, unspecified 04/20/2025 Lab Requisition [facility] - Lab [address] [place] [address] Samm Serrano MD Hyperkalemia; Non-ST elevation (NSTEMI) myocardial infarction (CMS-HCC); Heart failure, unspecified (CMS-HCC) 04/16/2025 Lab Requisition [facility] Lab [address] [place] [address] Samm Serrano MD Hematuria, unspecified 04/13/2025 Lab Requisition [facility] Lab [address] [place] [address] Samm Serrano MD Hyperkalemia; Non-ST elevation (NSTEMI) myocardial infarction (CMS-HCC); Heart failure, unspecified (CMS-HCC) 04/06/2025 Lab Requisition [facility] [address] [facility] [place] [address] Samm Serrano MD Hyperkalemia; Non-ST elevation (NSTEMI) myocardial infarction (CMS-HCC); Heart failure, unspecified (CMS-HCC) 03/29/2025 Lab Requisition [facility] Lab [address] [place] [address] Samm Serrano MD Hyperkalemia; Non-ST elevation (NSTEMI) myocardial infarction ([facility]); Heart failure, unspecified ([facility] 03/24/2025 Lab Requisition [facility] Lab [address] [place] [address] Samm Serrano MD Chronic systolic (congestive) heart failure ([facility]); Chronic kidney disease, stage 3 unspecified ([facility] 02/22/2025 Lab Requisition [facility] Lab [address] [place] [address] Samm Serrano MD 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 disease, or unspecified chronic kidney disease ([facility]); Chronic systolic (congestive) heart failure ([facility] 02/09/2025 Lab Requisition [facility] [address] [place] [address] Samm Serrano MD Acute kidney failure, unspecified; 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 disease, or unspecified chronic kidney disease ([facility]); Chronic systolic (congestive) heart failure ([facility]) from Last 3 Months Immunizations Immunization Administration Dates Next Due [facility] 06/13/2020 Family History Medical History Relation Name [...] week 08/17/2021 How often do you attend [facility] Ingeniatrics or roman catholic services? Never 08/17/2021 Do [...] Recorded Do you need help finding a orthopaedic hospitalal career center and/or a training program? [...] Date/Time Associated Diagnosis Comments T3, FREE Routine 05/03/2025 12:40 PM EDT Hyperkalemia Non-ST elevation (NSTEMI) myocardial infarction (CMS-HCC) Heart failure, unspecified (CMS-HCC) THYROID PROFILE INCLUDES TSH FT4 Routine 05/03/2025 [...] myocardial infarction (CMS-HCC) Heart failure, unspecified (CMS-HCC) URIC ACID Routine 04/27/2025 4:05 PM EDT Hyperkalemia Non-ST elevation (NSTEMI) myocardial infarction (CMS-HCC) Heart failure, unspecified (CMS-HCC) Gout, unspecified T3, FREE Routine 04/27/2025 4:05 PM EDT Hyperkalemia Non-ST elevation (NSTEMI) myocardial infarction (CMS-HCC) Heart failure, unspecified (CMS-HCC) Gout, unspecified THYROID PROFILE INCLUDES TSH FT4 Routine 04/27/2025 [...] unspecified (CMS-HCC) Gout, unspecified T3, FREE Routine 04/20/2025 3:53 PM EDT [...] includes TSH FT4 (05/03/2025 12:40 PM EDT) Only the most recent of5 resultswithin the time period is included. FREE T4 1.15 0.61 - 1.60 ng/dL 05/03/2025 2:01 PM EDT [facility] TSH 0.34(L) 0.49 - 4.67 uIU/mL 05/03/2025 2:01 PM EDT [facility] Blood Venous blood / Unknown 05/03/2025 12:40 PM EDT 05/03/2025 1:09 PM EDT us Samm Serrano MD LAB BLOOD ORDERABLES Final Resu lt [facility] [address] [place] [address], [place] * (ABNORMAL) CBC auto differential (05/03/2025 12:40 PM EDT) Only the most recent of9 resultswithin the time period is included. WBC 5.0 4 - 11 x10E9/L 05/03/2025 1:32 PM EDT [facility] RBC Count 3.56(L) 4.1 - 5.7 X10E12/L 05/03/2025 1:32 PM EDT [facility] Hemoglobin 10.8(L) 13 - 17 g/dL 05/03/2025 1:32 PM EDT [facility] Hematocrit 32.4(L) 39 - 50 % 05/03/2025 1:32 PM EDT [facility] MCV 91 80 - 100 fL 05/03/2025 1:32 PM EDT [facility] MCH 30.3 27 - 34 pg 05/03/2025 1:32 PM EDT [facility] MCHC 33.4 32 - 36 g/dL 05/03/2025 1:32 PM EDT [facility] RDW 17.5(H) 11.5 - 15 % 05/03/2025 1:32 PM EDT [facility] Platelet Count 135(L) 150 - 450 X10E9/L 05/03/2025 1:32 PM EDT [facility] MPV 8.5 7 - 12 fL 05/03/2025 1:32 PM EDT [facility] Neutrophils % 71.4 % 05/03/2025 1:32 PM EDT [facility] Lymphocytes % 11.8 % 05/03/2025 1:32 PM EDT [facility] Monocytes % 11.3 % 05/03/2025 1:32 PM EDT [facility] Eosinophils % 5.2 % 05/03/2025 1:32 PM EDT [facility] Basophils % 0.3 % 05/03/2025 1:32 PM EDT [facility] Neutrophils Absolute (A) 3.6 1.5 - 6.6 10*3/uL 05/03/2025 1:32 PM EDT [facility] Lymphocytes Absolute 0.6(L) 1.0 - 3.5 10*3/uL 05/03/2025 1:32 PM EDT [facility] Monocytes Absolute 0.6 0.0 - 0.9 10*3/uL 05/03/2025 1:32 PM EDT [facility] Eosinophils Absolute 0.3 0.0 - 0.4 10*3/uL 05/03/2025 1:32 PM EDT [facility] Basophils Absolute 0.0 0.0 - 0.2 10*3/uL 05/03/2025 1:32 PM EDT [facility] Differential Type AUTOMATED DIFFERENTIAL 05/03/2025 1:32 PM EDT [facility] Blood Venous blood / Unknown 05/03/2025 12:40 PM EDT 05/03/2025 1:09 PM EDT us Samm Serrano MD LAB BLOOD ORDERABLES Final Resu lt [facility] [address] [place] [address], * (ABNORMAL) Iron and TIBC (05/03/2025 12:40 PM EDT) Only the most recent of6 resultswithin the time period is included. IRON 58 50 - 212 ug/dL 05/03/2025 6:33 PM EDT [facility] TRANSFERRIN 224 168 - 336 mg/dL 05/03/2025 6:33 PM EDT [facility] IRON BINDING 314 250 - 425 ug/dL 05/03/2025 6:33 PM EDT [facility] IRON SATURATION 18(L) 20 - 50 % SATURATION 05/03/2025 6:33 PM EDT [facility] Blood Venous blood / Unknown 05/03/2025 12:40 PM EDT 05/03/2025 1:09 PM EDT Samm Serrano MD LAB BLOOD ORDERABLES Final Resu lt [facility] [address] [place] [address], * T3, free (05/03/2025 12:40 PM EDT) Only the most recent of6 resultswithin the time period is included. FREE T3 2.78 2.50 - 3.90 pg/mL 05/03/2025 6:40 PM EDT [facility] Blood Venous blood / Unknown 05/03/2025 12:40 PM EDT 05/03/2025 1:09 PM EDT Samm Serrano MD LAB BLOOD ORDERABLES Final Resu lt Performing Organization Address City/[facility] Co de Phone Number [facility] [address] [place] [address], * (ABNORMAL) B-type natriuretic peptide (05/03/2025 12:40 PM EDT) Only the most recent of6 resultswithin the time period is included. BNP 2,591(H) <=100 pg/mL 05/03/2025 2:06 PM EDT [facility] Blood Venous blood / Unknown 05/03/2025 12:40 PM EDT 05/03/2025 1:09 PM EDT Samm Serrano MD LAB BLOOD ORDERABLES Final Resu lt [facility] [address] [place] [address], [place] * Magnesium (05/03/2025 12:40 PM EDT) Only the most recent of6 resultswithin the time period is included. MAGNESIUM 2.6 1.8 - 2.6 mg/dL 05/03/2025 1:35 PM EDT [facility] Blood Venous blood / Unknown 05/03/2025 12:40 PM EDT 05/03/2025 1:09 PM EDT us Samm Serrano MD LAB BLOOD ORDERABLES Final Resu lt [facility] [address] [place] [address], * (ABNORMAL) Basic Metabolic Panel (05/03/2025 12:40 PM EDT) Only the most recent of8 resultswithin the time period is included. SODIUM 136 134 - 146 mmol/L 05/03/2025 1:35 PM EDT [facility] POTASSIUM 3.9 3.5 - 5.0 mmol/L 05/03/2025 1:35 PM EDT [facility] CHLORIDE 103 98 - 109 mmol/L 05/03/2025 1:35 PM EDT [facility] CARBON DIOXIDE 24 22 - 32 mmol/L 05/03/2025 1:35 PM EDT [facility] ANION GAP 9 5 - 15 mmol/L 05/03/2025 1:35 PM EDT [facility] BLOOD UREA NITROGEN 58(H) 5 - 27 mg/dL 05/03/2025 1:35 PM EDT [facility] CREATININE 2.10(H) 0.70 - 1.20 mg/dL 05/03/2025 1:35 PM EDT [facility] Comment:METHOD TRACEABLE TO IDMS STANDARD GLUCOSE 119(H) 65 - 99 mg/dL 05/03/2025 1:35 PM EDT [facility] CALCIUM 8.9 8.5 - 10.5 mg/dL 05/03/2025 1:35 PM EDT [facility] EGFR Non-Race Dependent 31(L) >=60 ml/min/1.7 3sq.m 05/03/2025 1:35 PM EDT [facility] Comment: eGFR not reported due to non-numeric value for Creatinine. Reported eGFR is based on the CKD-EPI 2020 equation that does not use a race coefficient. Blood Venous blood / Unknown 05/03/2025 12:40 PM EDT 05/03/2025 1:09 PM EDT us Samm Serrano MD LAB BLOOD ORDERABLES Final Resu lt Performing Organization Address City/[facility] Co de Phone Number [facility] [address] [place] [address] [place] [address], [place] * (ABNORMAL) Uric acid (04/27/2025 4:05 PM EDT) URIC ACID 12.1(H) 2.6 - 7.2 mg/dL 04/27/2025 6:29 PM EDT [facility] Blood Venous blood / Unknown 04/27/2025 4:05 PM EDT 04/27/2025 4:42 PM EDT Samm Serrano MD LAB BLOOD ORDERABLES Final Resu lt Performing Organization Address [facility] de Phone Number [address] [place] [address], [place] * (ABNORMAL) Microscopic, urine (04/16/2025 1:15 PM EDT) R.B.CELLS >100(H) 0 - 5 04/16/2025 2:51 PM EDT [facility] W.B.CELLS 04/16/2025 2:51 PM EDT [facility] Comment:PRESENT Urine Urine specimen collection, clean catch / Unknown 04/16/2025 1:15 PM EDT 04/16/2025 2:35 PM EDT us Samm Serrano MD URINE ORDERABLES Final Result Performing Organization Address City/[facility]/ZIP Co de Phone Number [address] [place] [address], [place] * TSH (04/06/2025 3:00 PM EDT) TSH 1.10 0.49 - 4.67 uIU/mL 04/06/2025 4:25 PM EDT [facility] Blood Venous blood / Unknown 04/06/2025 3:00 PM EDT 04/06/2025 3:31 PM EDT Samm Serrano MD LAB BLOOD ORDERABLES Final Resu lt Performing Organization Address City/[facility]/ZIP Co de Phone Number [address] [place] [address], [place] * T4, free (04/06/2025 3:00 PM EDT) FREE T4 1.19 0.61 - 1.60 ng/dL 04/06/2025 4:27 PM EDT [facility] Blood Venous blood / Unknown 04/06/2025 3:00 PM EDT 04/06/2025 3:31 PM EDT Samm Serrano MD LAB BLOOD ORDERABLES Final Resu lt Performing Organization Address City/[facility]/ZIP Co de Phone Number [address] [place] [address], [place] * Prostatic specific antigen screen (03/24/2025 11:38 AM EDT) PROSTATIC SPEC ANT <0.01 0.00 - 4.00 ng/mL 03/24/2025 7:33 PM EDT [facility] Comment: The method used for this test is [employer] DXI chemiluminescent immunoassay. Values obtained by different assay methods cannot be used interchangeably. Blood Venous blood / Unknown 03/24/2025 11:38 AM EDT 03/24/2025 12:16 PM EDT us Samm Serrano MD LAB BLOOD ORDERABLES Final Resu lt [facility] [address] [place] [address], [place] [phone] * ALT (03/24/2025 11:38 AM EDT) ALT 39 <=40 U/L 03/24/2025 12:34 PM EDT [facility] Blood Venous blood / Unknown 03/24/2025 11:38 AM EDT 03/24/2025 12:16 PM EDT us Samm Serrano MD LAB BLOOD ORDERABLES Final Resu lt Performing Organization Address City/[facility]/ZIP Co de Phone Number [address] [place] [address], [place] * (ABNORMAL) AST (03/24/2025 11:38 AM EDT) AST 49(H) <=41 U/L 03/24/2025 12:34 PM EDT [facility] Blood Venous blood / Unknown 03/24/2025 11:38 AM EDT 03/24/2025 12:16 PM EDT Samm Serrano MD LAB BLOOD ORDERABLES Final Resu lt Performing Organization Address City/[facility]/ZIP Co de Phone Number [address] [place] [address], [place] * (ABNORMAL) Liver panel (03/24/2025 11:38 AM EDT) TOTAL PROTEIN 6.4 6.0 - 8.0 g/dL 03/24/2025 12:34 PM EDT [facility] ALBUMIN 3.2 3.2 - 5.3 g/dL 03/24/2025 12:34 PM EDT [facility] BILIRUBIN,TOTAL 0.8 0.3 - 1.2 mg/dL 03/24/2025 12:34 PM EDT [facility] ALKALINE PHOSPHATASE 138(H) 39 - 130 U/L 03/24/2025 12:34 PM EDT [facility] AST 49(H) <=41 U/L 03/24/2025 12:34 PM EDT [facility] ALT 39 <=40 U/L 03/24/2025 12:34 PM EDT [facility] BILIRUBIN,DIRECT 0.4 <=0.4 mg/dL 03/24/2025 12:34 PM EDT [facility] Blood Venous blood / Unknown 03/24/2025 11:38 AM EDT 03/24/2025 12:16 PM EDT us Samm Serrano MD LAB BLOOD ORDERABLES Final Resu lt Performing Organization Address City/State/[facility] Co de Phone Number [facility] [address] [place] [address], [place] * Lipid profile (03/24/2025 11:38 AM EDT) CHOLESTEROL 154 150 - 200 mg/dL 03/24/2025 7:28 PM EDT [facility] TRIGLYCERIDE 55 27 - 150 mg/dL 03/24/2025 7:28 PM EDT [facility] HDL CHOLESTEROL 49 >39 mg/dL 7:28 PM EDT [facility] Comment: HDL <40 mg/dL - High Risk HDL > or = 40mg/dL- Desirable HDL >60 mg/dL - Negative Risk LDL (CALC) 94 <130 mg/dL 03/24/2025 7:28 PM EDT [facility] Comment: LDL <100 mg/dL - Desirable LDL >160 mg/dL - High Risk CHOLESTEROL:HDL 3.1 1.0 - 5.0 7:28 PM EDT [facility] VERY LOW LIPOPROTEIN 11 0 - 30 mg/dL 03/24/2025 7:28 PM EDT [facility] Blood Venous blood / Unknown 03/24/2025 11:38 AM EDT 03/24/2025 12:16 PM EDT us Samm Serrano MD LAB BLOOD ORDERABLES Final Resu lt [facility] [address] [place] [address], [place] [phone] * (ABNORMAL) Comprehensive metabolic panel (02/09/2025 3:27 PM EDT) SODIUM 133(L) 134 - 146 mmol/L 02/09/2025 4:45 PM EDT [facility] POTASSIUM 3.8 3.5 - 5.0 mmol/L 02/09/2025 4:45 PM EDT [facility] CHLORIDE 102 98 - 109 mmol/L 02/09/2025 4:45 PM EDT [facility] CARBON DIOXIDE 27 22 - 32 mmol/L 02/09/2025 4:45 PM EDT [facility] ANION GAP 4(L) 5 - 15 mmol/L 02/09/2025 4:45 PM EDT [facility] BLOOD UREA NITROGEN 49(H) 5 - 27 mg/dL 02/09/2025 4:45 PM EDT [facility] CREATININE 2.18(H) 0.70 - 1.20 mg/dL 02/09/2025 4:45 PM EDT [facility] Comment:METHOD TRACEABLE TO IDMS STANDARD GLUCOSE 88 65 - 99 mg/dL 02/09/2025 4:45 PM EDT [facility] CALCIUM 8.6 8.5 - 10.5 mg/dL 02/09/2025 4:45 PM EDT [facility] TOTAL PROTEIN 6.8 6.0 - 8.0 g/dL 02/09/2025 4:45 PM EDT [facility] ALBUMIN 3.3 3.2 - 5.3 g/dL 02/09/2025 4:45 PM EDT [facility] ALKALINE PHOSPHATASE 117 39 - 130 U/L 02/09/2025 4:45 PM EDT [facility] AST 20 <=41 U/L 02/09/2025 4:45 PM EDT [facility] ALT 11 <=40 U/L 02/09/2025 4:45 PM EDT [facility] BILIRUBIN,TOTAL 1.1 0.3 - 1.2 mg/dL 02/09/2025 4:45 PM EDT [facility] EGFR Non-Race Dependent 29(L) >=60 ml/min/1.7 3sq.m 02/09/2025 4:45 PM EDT [facility] Comment: eGFR not reported due to non-numeric value for Creatinine. Reported eGFR is based on the CKD-EPI 2020 equation that does not use a race coefficient. Blood Venous blood / Unknown 02/09/2025 3:27 PM EDT 02/09/2025 4:19 PM EDT us Samm Serrano MD LAB BLOOD ORDERABLES Final Resu lt [facility] [address] [place] [address], [place] from Last 3 Months Insurance [employer] Member Subscriber Plan / Payer (Ef fective 2018-Present) Name:José Miguel Antonio Relation to Subscriber:Self Name:José Miguel Antonio Payer ID:Not on file Type:Not on file Address: [place] [phone] Advance Directives * Full Code (Latest Code Status on File) Date Activated Date Inactivated Comments 08/18/2021 11:48 AM 08/19/2021 7:30 PM Care Teams Director Of Event Marketing Relationship Specialty Start Date End Date Samm Serrano MD PCP - General Family Medicine 02/26/24
--- OUTSIDE RECORDS SUMMARY | 2025-05-12 14:04 | XMS_ITS | Encounter Summary ---
Author Organization [facility] [employer] s tem Address [id number] [address] [place] [address] Care Team Providers Care Senior Technical Analyst Name Role Phone Samm Serrano MD Primary Care Provider [phone] Encounter Details Date Type Department Care Team (Late st Contact Info) Description 03/29/2025 Lab Requisition [facility] - Lab [address] [place] [phone] Samm Serrano MD [address] [place] [address] Hyperkalemia; Non-ST elevation (NSTEMI) myocardial infarction ([facility]); Heart failure, unspecified ([facility]) Social History Tobacco Use Types Packs/Day [...] How often do you attend chur or anabaptism services? Never 08/17/2021 Do you belong to [...] Answer Date Recorded Total Score 0 08/17/2021 [facility] - Occupational [...] - 1.60 ng/dL 03/29/2025 5:51 PM EDT [facility] TSH 0.75 0.49 - 4.67 uIU/mL 03/29/2025 5:51 PM EDT [facility] Blood Venous blood / Unknown 03/29/2025 3:57 PM EDT 03/29/2025 4:40 PM EDT us Samm Serrano MD LAB BLOOD ORDERABLES Final Resu lt [facility] [address] [place] [address], * T3, free (03/29/2025 3:57 PM EDT) FREE T3 2.79 2.50 - 3.90 pg/mL 03/30/2025 12:51 PM EDT [facility] Blood Venous blood / Unknown 03/29/2025 3:57 PM EDT 03/29/2025 4:40 PM EDT us Samm Serrano MD LAB BLOOD ORDERABLES Final Resu lt [facility] [address] [place] [address], [place] [phone] * (ABNORMAL) Magnesium (03/29/2025 3:57 PM EDT) MAGNESIUM 2.7(H) 1.8 - 2.6 mg/dL 03/29/2025 5:28 PM EDT [facility] Blood Venous blood / Unknown 03/29/2025 3:57 PM EDT 03/29/2025 4:40 PM EDT us Samm Serrano MD LAB BLOOD ORDERABLES Final Resu lt [facility] [address] [place] [address], * (ABNORMAL) Iron and TIBC (03/29/2025 3:57 PM EDT) IRON 46(L) 50 - 212 ug/dL 03/30/2025 12:19 PM EDT [facility] TRANSFERRIN 188 168 - 336 mg/dL 03/30/2025 12:19 PM EDT [facility] IRON BINDING 263 250 - 425 ug/dL 03/30/2025 12:19 PM EDT [facility] IRON SATURATION 17(L) 20 - 50 % SATURATION 03/30/2025 12:19 PM EDT [facility] Blood Venous blood / Unknown 03/29/2025 3:57 PM EDT 03/29/2025 4:40 PM EDT us Samm Serrano MD LAB BLOOD ORDERABLES Final Resu lt [facility] [address] [place] [address], [place] [phone] * (ABNORMAL) B-type natriuretic peptide (03/29/2025 3:57 PM EDT) BNP 2,350(H) <=100 pg/mL 03/29/2025 7:00 PM EDT [facility] Blood Venous blood / Unknown 03/29/2025 3:57 PM EDT 03/29/2025 4:40 PM EDT us Samm Serrano MD LAB BLOOD ORDERABLES Final Resu lt [facility] [address] [place] [address], [place] * (ABNORMAL) CBC auto differential (03/29/2025 3:57 PM EDT) WBC 4.6 4 - 11 x10E9/L 03/29/2025 5:02 PM EDT [facility] RBC Count 3.50(L) 4.1 - 5.7 X10E12/L 03/29/2025 5:02 PM EDT [facility] Hemoglobin 10.7(L) 13 - 17 g/dL 03/29/2025 5:02 PM EDT [facility] Hematocrit 31.9(L) 39 - 50 % 03/29/2025 5:02 PM EDT [facility] MCV 91 80 - 100 fL 03/29/2025 5:02 PM EDT [facility] MCH 30.5 27 - 34 pg 03/29/2025 5:02 PM EDT [facility] MCHC 33.4 32 - 36 g/dL 03/29/2025 5:02 PM EDT [facility] RDW 17.0(H) 11.5 - 15 % 03/29/2025 5:02 PM EDT [facility] Platelet Count 149(L) 150 - 450 X10E9/L 03/29/2025 5:02 PM EDT [facility] MPV 8.8 7 - 12 fL 03/29/2025 5:02 PM EDT [facility] Neutrophils % 67.6 % 03/29/2025 5:02 PM EDT [facility] Lymphocytes % 14.0 % 03/29/2025 5:02 PM EDT [facility] Monocytes % 14.0 % 03/29/2025 5:02 PM EDT [facility] Eosinophils % 3.9 % 03/29/2025 5:02 PM EDT [facility] Basophils % 0.5 % 03/29/2025 5:02 PM EDT [facility] Neutrophils Absolute (A) 3.1 1.5 - 6.6 10*3/uL 03/29/2025 5:02 PM EDT [facility] Lymphocytes Absolute 0.6(L) 1.0 - 3.5 10*3/uL 03/29/2025 5:02 PM EDT [facility] Monocytes Absolute 0.6 0.0 - 0.9 10*3/uL 03/29/2025 5:02 PM EDT [facility] Eosinophils Absolute 0.2 0.0 - 0.4 10*3/uL 03/29/2025 5:02 PM EDT [facility] Basophils Absolute 0.0 0.0 - 0.2 10*3/uL 03/29/2025 5:02 PM EDT [facility] Differential Type AUTOMATED DIFFERENTIAL 03/29/2025 5:02 PM EDT [facility] Blood Venous blood / Unknown 03/29/2025 3:57 PM EDT 03/29/2025 4:40 PM EDT us Samm Serrano MD LAB BLOOD ORDERABLES Final Resu lt [facility] [address] [place] [address], [place] * (ABNORMAL) Basic Metabolic Panel (03/29/2025 3:57 PM EDT) SODIUM 134 134 - 146 mmol/L 03/29/2025 5:28 PM EDT [facility] POTASSIUM 4.1 3.5 - 5.0 mmol/L 03/29/2025 5:28 PM EDT [facility] CHLORIDE 106 98 - 109 mmol/L 03/29/2025 5:28 PM EDT [facility] CARBON DIOXIDE 22 22 - 32 mmol/L 03/29/2025 5:28 PM EDT [facility] ANION GAP 6 5 - 15 mmol/L 03/29/2025 5:28 PM EDT [facility] BLOOD UREA NITROGEN 72(H) 5 - 27 mg/dL 03/29/2025 5:28 PM EDT [facility] CREATININE 1.95(H) 0.70 - 1.20 mg/dL 03/29/2025 5:28 PM EDT [facility] Comment:METHOD TRACEABLE TO IDMS STANDARD GLUCOSE 91 65 - 99 mg/dL 03/29/2025 5:28 PM EDT [facility] CALCIUM 8.5 8.5 - 10.5 mg/dL 03/29/2025 5:28 PM EDT [facility] EGFR Non-Race Dependent 34(L) >=60 ml/min/1.7 3sq.m 03/29/2025 5:28 PM EDT [facility] Comment: eGFR not reported due to non-numeric value for Creatinine. Reported eGFR is based on the CKD-EPI 2020 equation that does not use a race coefficient. Blood Venous blood / Unknown 03/29/2025 3:57 PM EDT 03/29/2025 4:40 PM EDT us Samm Serrano MD LAB BLOOD ORDERABLES Final Resu lt [facility] [address] [place] [address], documented in this encounter Visit Diagnoses Diagnosis Hyperkalemia Hyperpotassemia Non-ST elevation (NSTEMI) myocardial infarction (CMS-HCC) Heart failure, unspecified (CMS-HCC) Heart failure, unspecified documented in this encounter Additional Health Concerns Assessment Noted Time PHQ-9 Depression Total Score: 0 08/17/20 21 12:12 PM EST documented as of this encounter Care Teams Senior Technical Analyst Relationship Specialty Start Date End Date Samm Serrano MD PCP - General Family Medicine 02/26/24 documented as of this encounter
--- OUTSIDE RECORDS SUMMARY | 2025-05-12 14:04 | XMS_ITS | Encounter Summary ---
Author Organization [facility] Address [address] [place] [address] Care Team Providers Care Environmental Health Technologist Name Role Phone Samm Serrano MD Primary Care Provider [phone] Encounter Details Date Type Department Care Team (Late st Contact Info) Description 04/29/2025 Telephone [facility] [address] [place] [address] Radha Galindo MA Social History Tobacco Use Types Packs/Day Years Used Date Smoking Tobacco: Former Cigarettes Smokeless Tobacco: Never Alcohol Use Standard Drinks/Week Comments Not Currently 0 (1 standard drink = 0.6 oz pur e alcohol) [facility] Utilities Answer Date Recorded In the past 12 months has [facility] freshbag, gas, oil, or water [employer] threatened to shut off services in [...] Telephone Encounter - Radha Galindo MA - 04/29/2025 10:51 AM EDT Images from the original note were not included. Conchita Rivera, CREDIT COUNSELOR Radha Galindo MA Can let them know there was no significant change seen on his Xray. Thanks Spoke to patient to advise him of his X-ray results per Jesenia Rivera. Patient verbalized understanding. documented in this encounter Plan of Treatment Upcoming Encounters Date Type Department Care Team (Late st Contact Info) Description 06/21/2025 3:15 PM EDT Office Visit [place] [address] [place] [address] Ozzie Crain MD [address] [facility] [place] [address] documented as of this encounter Visit Diagnoses Not on filedocumented in this encounter Care Teams Environmental Health Technologist Relationship Specialty Start Date End Date Samm Serrano MD [address] [place] [address] PCP - General 05/16/22 documented as of this encounter
--- OUTSIDE RECORDS SUMMARY | 2025-05-12 14:04 | XMS_ITS | Encounter Summary ---
Author Organization [facility] [employer] [facility] tem Address [id number] [address] [place] [address] Care Team Providers Care Granulator Name Role Phone Samm Serrano MD Primary Care Provider [phone] Encounter Details Date Type Department Care Team (Late st Contact Info) Description 02/09/2025 Lab Requisition [facility] - Lab [address] [place] [phone] Samm Serrano MD [address] [place] [address] Acute kidney failure, unspecified; 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 disease, or unspecified chronic kidney disease (CMS-HCC); Chronic systolic (congestive) heart failure ([facility]) Social History Tobacco Use Types Packs/Day [...] week 08/17/2021 How often do you attend [facility] or anglican services? Never 08/17/2021 Do you belong to [...] Recorded Do you need help finding a [employer] [facility] and/or a training program? No [...] - 11 x10E9/L 02/09/2025 4:[address] [facility] RBC Count 3.74(L) 4.1 - 5.7 X10E12/L 02/09/2025 4:[address] [facility] Hemoglobin 11.7(L) 13 - 17 g/dL 02/09/2025 4:[address] [facility] Hematocrit 35.2(L) 39 - 50 % 02/09/2025 4:[address] [facility] MCV 94 80 - 100 fL 02/09/2025 4:[address] [facility] MCH 31.3 27 - 34 pg 02/09/2025 4:[address] [facility] MCHC 33.3 32 - 36 g/dL 02/09/2025 4:[address] [facility] RDW 17.6(H) 11.5 - 15 % 02/09/2025 4:[address] [facility] Platelet Count 161 150 - 450 X10E9/L 02/09/2025 4:[address] [facility] MPV 8.1 7 - 12 fL 02/09/2025 4:[address] [facility] Neutrophils % 62.7 % 02/09/2025 4:[address] [facility] Lymphocytes % 16.4 % 02/09/2025 4:[address] [facility] Monocytes % 14.1 % 02/09/2025 4:[address] [facility] Eosinophils % 6.3 % 02/09/2025 4:[address] [facility] Basophils % 0.5 % 02/09/2025 4:[address] [facility] Neutrophils Absolute (A) 2.6 1.5 - 6.6 10*3/uL 02/09/2025 4:[address] [facility] Lymphocytes Absolute 0.7(L) 1.0 - 3.5 10*3/uL 02/09/2025 4:[address] [facility] Monocytes Absolute 0.6 0.0 - 0.9 10*3/uL 02/09/2025 4:[address] [facility] Eosinophils Absolute 0.3 0.0 - 0.4 10*3/uL 02/09/2025 4:[address] [facility] Basophils Absolute 0.0 0.0 - 0.2 10*3/uL 02/09/2025 4:[address] [facility] Differential Type AUTOMATED DIFFERENTIAL 02/09/2025 4:[address] [facility] Blood Venous blood / Unknown 02/09/2025 3:27 PM EDT 02/09/2025 4:19 PM EDT us Samm Serrano MD LAB BLOOD ORDERABLES Final Resu lt [facility] [address] [place] [address], * (ABNORMAL) Comprehensive metabolic panel (02/09/2025 3:27 PM EDT) SODIUM 133(L) 134 - 146 mmol/L 02/09/2025 4:[address] [facility] POTASSIUM 3.8 3.5 - 5.0 mmol/L 02/09/2025 4:[address] [facility] CHLORIDE 102 98 - 109 mmol/L 02/09/2025 4:[address] [facility] CARBON DIOXIDE 27 22 - 32 mmol/L 02/09/2025 4:[address] [facility] ANION GAP 4(L) 5 - 15 mmol/L 02/09/2025 4:[address] [facility] BLOOD UREA NITROGEN 49(H) 5 - 27 mg/dL 02/09/2025 4:[address] [facility] CREATININE 2.18(H) 0.70 - 1.20 mg/dL 02/09/2025 4:[address] [facility] Comment:METHOD TRACEABLE TO IDMS STANDARD GLUCOSE 88 65 - 99 mg/dL 02/09/2025 4:[address] [facility] CALCIUM 8.6 8.5 - 10.5 mg/dL 02/09/2025 4:[address] [facility] TOTAL PROTEIN 6.8 6.0 - 8.0 g/dL 02/09/2025 4:[address] [facility] ALBUMIN 3.3 3.2 - 5.3 g/dL 02/09/2025 4:[address] [facility] ALKALINE PHOSPHATASE 117 39 - 130 U/L 02/09/2025 4:[address] [facility] AST 20 <=41 U/L 02/09/2025 4:[address] [facility] ALT 11 <=40 U/L 02/09/2025 4:[address] [facility] BILIRUBIN,TOTAL 1.1 0.3 - 1.2 mg/dL 02/09/2025 4:[address] [facility] EGFR Non-Race Dependent 29(L) >=60 ml/min/1.7 3sq.m 02/09/2025 4:[address] [facility] Comment: eGFR not reported due to non-numeric value for Creatinine. Reported eGFR is based on the CKD-EPI 2020 equation that does not use a race coefficient. Blood Venous blood / Unknown 02/09/2025 3:27 PM EDT 02/09/2025 4:19 PM EDT us Samm Serrano MD LAB BLOOD ORDERABLES Final Resu lt Performing Organization Address City/State/[facility] Co de Phone Number [facility] [address] [place] [address] documented in this encounter Visit Diagnoses Diagnosis [...] documented as of this encounter Care Teams Granulator Relationship Specialty Start Date End Date Samm Serrano MD PCP - General Family Medicine 02/26/24 documented as of this encounter
--- OUTSIDE RECORDS SUMMARY | 2025-05-12 14:04 | XMS_ITS | Encounter Summary ---
Author Organization [facility] [employer] s tem Address [id number] [address] [place] [address] Care Team Providers Care [employer] Weaver Name Role Phone Samm Serrano MD Primary Care Provider [phone] Encounter Details Date Type Department Care Team (Late st Contact Info) Description 04/16/2025 Lab Requisition [facility] - Lab [address] [place] [phone] Samm Serrano MD [address] [place] [address] Hematuria, unspecified Social History Tobacco Use Types [...] Recorded Total Score 0 08/17/2021 [facility] - Occupational [...] 0 - 5 04/16/2025 2:51 PM EDT [facility]CELL[facility] 04/16/2025 2:51 PM EDT [facility] Comment:PRESENT Urine Urine specimen collection, clean catch / Unknown 04/16/2025 1:15 PM EDT 04/16/2025 2:35 PM EDT us Samm Serrano MD URINE ORDERABLES Final Result [facility] [address] [place] [address], documented in this encounter Visit Diagnoses Diagnosis Hematuria, unspecified documented in this encounter Additional Health Concerns Assessment Noted Time PHQ-9 Depression Total Score: 0 08/17/20 21 12:12 PM EST documented as of this encounter Care Teams [employer] Weaver Relationship Specialty Start Date End Date Samm Serrano MD PCP - General Family Medicine 02/26/24 documented as of this encounter
--- OUTSIDE RECORDS SUMMARY | 2025-05-12 14:04 | XMS_ITS | Encounter Summary ---
Author Organization [facility] [employer] s tem Address [id number] [address] [place] [address] Care Team Providers Care Testing Coordinator Name Role Phone Samm Serrano MD Primary Care Provider [phone] Encounter Details Date Type Department Care Team (Late st Contact Info) Description 01/25/2025 Lab Requisition [facility] - Lab [address] [place] [phone] Samm Serrano MD [address] [place] [address] 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 disease, or unspecified chronic kidney disease (CMS-HCC); Chronic systolic (congestive) heart failure ([facility]-H[facility]) Social History Tobacco Use Types Packs/Day [...] week 08/17/2021 How often do you attend [facility] or hoahaoism services? Never 08/17/2021 Do you [...] Answer Date Recorded Total Score 0 08/17/2021 [facility] - [...] Recorded Do you need help finding a [facility] and/or a training [...] - 11 x10E9/L 01/25/2025 12:48 PM EDT [facility] RBC Count 3.62(L) 4.1 - 5.7 X10E12/L 01/25/2025 12:48 PM EDT [facility] Hemoglobin 11.2(L) 13 - 17 g/dL 01/25/2025 12:48 PM EDT [facility] Hematocrit 33.7(L) 39 - 50 % 01/25/2025 12:48 PM EDT [facility] MCV 93 80 - 100 fL 01/25/2025 12:48 PM EDT [facility] MCH 31.0 27 - 34 pg 01/25/2025 12:48 PM EDT [facility] MCHC 33.2 32 - 36 g/dL 01/25/2025 12:48 PM EDT [facility] RDW 17.5(H) 11.5 - 15 % 01/25/2025 12:48 PM EDT [facility] Platelet Count 161 150 - 450 X10E9/L 01/25/2025 12:48 PM EDT [facility] MPV 7.9 7 - 12 fL 01/25/2025 12:48 PM EDT [facility] Neutrophils % 65.9 % 01/25/2025 12:48 PM EDT [facility] Lymphocytes % 15.2 % 01/25/2025 12:48 PM EDT [facility] Monocytes % 12.1 % 01/25/2025 12:48 PM EDT [facility] Eosinophils % 6.3 % 01/25/2025 12:48 PM EDT [facility] Basophils % 0.5 % 01/25/2025 12:48 PM EDT [facility] Neutrophils Absolute (A) 3.3 1.5 - 6.6 10*3/uL 01/25/2025 12:48 PM EDT [facility] Lymphocytes Absolute 0.8(L) 1.0 - 3.5 10*3/uL 01/25/2025 12:48 PM EDT [facility] Monocytes Absolute 0.6 0.0 - 0.9 10*3/uL 01/25/2025 12:48 PM EDT [facility] Eosinophils Absolute 0.3 0.0 - 0.4 10*3/uL 01/25/2025 12:48 PM EDT [facility] Basophils Absolute 0.0 0.0 - 0.2 10*3/uL 01/25/2025 12:48 PM EDT [facility] Differential Type AUTOMATED DIFFERENTIAL 01/25/2025 12:48 PM EDT [facility] Blood Venous blood / Unknown 01/25/2025 11:40 AM EDT 01/25/2025 12:16 PM EDT us Samm Serrano MD LAB BLOOD ORDERABLES Final Resu lt [facility] [address] [place] [address], * (ABNORMAL) Comprehensive metabolic panel (01/25/2025 11:40 AM EDT) SODIUM 135 134 - 146 mmol/L 01/25/2025 12:48 PM EDT [facility] POTASSIUM 4.0 3.5 - 5.0 mmol/L 01/25/2025 12:48 PM EDT [facility] CHLORIDE 104 98 - 109 mmol/L 01/25/2025 12:48 PM EDT [facility] CARBON DIOXIDE 24 22 - 32 mmol/L 01/25/2025 12:48 PM EDT [facility] ANION GAP 7 5 - 15 mmol/L 01/25/2025 12:48 PM EDT [facility] BLOOD UREA NITROGEN 47(H) 5 - 27 mg/dL 01/25/2025 12:48 PM EDT [facility] CREATININE 2.01(H) 0.70 - 1.20 mg/dL 01/25/2025 12:48 PM EDT [facility] Comment:METHOD TRACEABLE TO IDMS STANDARD GLUCOSE 97 65 - 99 mg/dL 01/25/2025 12:48 PM EDT [facility] CALCIUM 8.4(L) 8.5 - 10.5 mg/dL 01/25/2025 12:48 PM EDT [facility] TOTAL PROTEIN 6.9 6.0 - 8.0 g/dL 01/25/2025 12:48 PM EDT [facility] ALBUMIN 3.3 3.2 - 5.3 g/dL 01/25/2025 12:48 PM EDT [facility] ALKALINE PHOSPHATASE 122 39 - 130 U/L 01/25/2025 12:48 PM EDT [facility] AST 22 <=41 U/L 01/25/2025 12:48 PM EDT [facility] ALT 11 <=40 U/L 01/25/2025 12:48 PM EDT [facility] BILIRUBIN,TOTAL 0.9 0.3 - 1.2 mg/dL 01/25/2025 12:48 PM EDT [facility] EGFR Non-Race Dependent 33(L) >=60 ml/min/1.7 3sq.m 01/25/2025 12:48 PM EDT [facility] Comment: eGFR not reported due to non-numeric value for Creatinine. Reported eGFR is based on the CKD-EPI 2020 equation that does not use a race coefficient. Blood Venous blood / Unknown 01/25/2025 11:40 AM EDT 01/25/2025 12:16 PM EDT us Samm Serrano MD LAB BLOOD ORDERABLES Final Resu lt [facility] [address] [place] [address] documented in this encounter Visit Diagnoses Diagnosis [...] documented as of this encounter Care Teams Testing Coordinator Relationship Specialty Start Date End Date Samm Serrano MD PCP - General Family Medicine 02/26/24 documented as of this encounter
--- OUTSIDE RECORDS SUMMARY | 2025-05-12 14:04 | XMS_ITS | Encounter Summary ---
Author Organization [facility] [employer] s tem Address [id number] [address] [place] [address] Care Team Providers Care Power Sewing Machine Operator Name Role Phone Samm Serrano MD Primary Care Provider [phone] Encounter Details Date Type Department Care Team (Late st Contact Info) Description 04/06/2025 Lab Requisition [facility] - Lab [address] [place] [phone] Samm Serrano MD [address] [place] [address] Hyperkalemia; Non-ST elevation (NSTEMI) myocardial infarction ([facility]-HCC); Heart failure, unspecified ([facility]-HCC) Social History Tobacco Use Types Packs/Day [...] How often do you attend chur or anglican services? Never 08/17/2021 Do you belong to any clubs o r organizations such as rastafari groups, unions, fraternal or athletic groups, or [...] Answer Date Recorded Total Score 0 08/17/2021 [facility] - [...] Recorded Do you need help finding a [facility] and/or a training [...] - 4.67 uIU/mL 04/06/2025 4:25 PM EDT [facility] Blood Venous blood / Unknown 04/06/2025 3:00 PM EDT 04/06/2025 3:31 PM EDT us Samm Serrano MD LAB BLOOD ORDERABLES Final Resu lt Performing Organization Address [facility]/ZIP Co de Phone Number [address] [place] [address], * T4, free (04/06/2025 3:00 PM EDT) FREE T4 1.19 0.61 - 1.60 ng/dL 04/06/2025 4:27 PM EDT [facility] Blood Venous blood / Unknown 04/06/2025 3:00 PM EDT 04/06/2025 3:31 PM EDT us Samm Serrano MD LAB BLOOD ORDERABLES Final Resu lt [address] [place] [address], [place] * T3, free (04/06/2025 3:00 PM EDT) FREE T3 2.89 2.50 - 3.90 pg/mL 04/07/2025 2:57 AM EDT [facility] Blood Venous blood / Unknown 04/06/2025 3:00 PM EDT 04/06/2025 3:31 PM EDT Samm Serrano MD LAB BLOOD ORDERABLES Final Resu lt [facility] [address] [place] [address], * Magnesium (04/06/2025 3:00 PM EDT) MAGNESIUM 2.6 1.8 - 2.6 mg/dL 04/06/2025 4:06 PM EDT [facility] Blood Venous blood / Unknown 04/06/2025 3:00 PM EDT 04/06/2025 3:31 PM EDT Samm Serrano MD LAB BLOOD ORDERABLES Final Resu lt [facility] [address] [place] [address], [place] * Iron and TIBC (04/06/2025 3:00 PM EDT) IRON 60 50 - 212 ug/dL 04/07/2025 2:51 AM EDT [facility] TRANSFERRIN 202 168 - 336 mg/dL 04/07/2025 2:51 AM EDT [facility] IRON BINDING 283 250 - 425 ug/dL 04/07/2025 2:51 AM EDT [facility] IRON SATURATION 21 20 - 50 % SATURATION 04/07/2025 2:51 AM EDT [facility] Blood Venous blood / Unknown 04/06/2025 3:00 PM EDT 04/06/2025 3:31 PM EDT us Samm Serrano MD LAB BLOOD ORDERABLES Final Resu lt [facility] [address] [place] [address], [place] [phone] * (ABNORMAL) CBC auto differential (04/06/2025 3:00 PM EDT) WBC 5.7 4 - 11 x10E9/L 04/06/2025 3:55 PM EDT [facility] RBC Count 3.78(L) 4.1 - 5.7 X10E12/L 04/06/2025 3:55 PM EDT [facility] Hemoglobin 11.5(L) 13 - 17 g/dL 04/06/2025 3:55 PM EDT [facility] Hematocrit 34.6(L) 39 - 50 % 04/06/2025 3:55 PM EDT [facility] MCV 92 80 - 100 fL 04/06/2025 3:55 PM EDT [facility] MCH 30.4 27 - 34 pg 04/06/2025 3:55 PM EDT [facility] MCHC 33.2 32 - 36 g/dL 04/06/2025 3:55 PM EDT [facility] RDW 17.3(H) 11.5 - 15 % 04/06/2025 3:55 PM EDT [facility] Platelet Count 143(L) 150 - 450 X10E9/L 04/06/2025 3:55 PM EDT [facility] MPV 8.3 7 - 12 fL 04/06/2025 3:55 PM EDT [facility] Neutrophils % 70.8 % 04/06/2025 3:55 PM EDT [facility] Lymphocytes % 12.9 % 04/06/2025 3:55 PM EDT [facility] Monocytes % 11.5 % 04/06/2025 3:55 PM EDT [facility] Eosinophils % 4.2 % 04/06/2025 3:55 PM EDT [facility] Basophils % 0.6 % 04/06/2025 3:55 PM EDT [facility] Neutrophils Absolute (A) 4.0 1.5 - 6.6 10*3/uL 04/06/2025 3:55 PM EDT [facility] Lymphocytes Absolute 0.7(L) 1.0 - 3.5 10*3/uL 04/06/2025 3:55 PM EDT [facility] Monocytes Absolute 0.7 0.0 - 0.9 10*3/uL 04/06/2025 3:55 PM EDT [facility] Eosinophils Absolute 0.2 0.0 - 0.4 10*3/uL 04/06/2025 3:55 PM EDT [facility] Basophils Absolute 0.0 0.0 - 0.2 10*3/uL 04/06/2025 3:55 PM EDT [facility] Differential Type AUTOMATED DIFFERENTIAL 04/06/2025 3:55 PM EDT [facility] Blood Venous blood / Unknown 04/06/2025 3:00 PM EDT 04/06/2025 3:31 PM EDT us Samm Serrano MD LAB BLOOD ORDERABLES Final Resu lt [facility] [address] [place] [address], [place] * (ABNORMAL) B-type natriuretic peptide (04/06/2025 3:00 PM EDT) BNP 3,367(H) <=100 pg/mL 04/06/2025 4:27 PM EDT [facility] Blood Venous blood / Unknown 04/06/2025 3:00 PM EDT 04/06/2025 3:31 PM EDT us Samm Serrano MD LAB BLOOD ORDERABLES Final Resu lt [facility] [address] [place] [address], [place] * (ABNORMAL) Basic Metabolic Panel (04/06/2025 3:00 PM EDT) SODIUM 134 134 - 146 mmol/L 04/06/2025 4:06 PM EDT [facility] POTASSIUM 4.9 3.5 - 5.0 mmol/L 04/06/2025 4:06 PM EDT [facility] CHLORIDE 102 98 - 109 mmol/L 04/06/2025 4:06 PM EDT [facility] CARBON DIOXIDE 25 22 - 32 mmol/L 04/06/2025 4:06 PM EDT [facility] ANION GAP 7 5 - 15 mmol/L 04/06/2025 4:06 PM EDT [facility] BLOOD UREA NITROGEN 47(H) 5 - 27 mg/dL 04/06/2025 4:06 PM EDT [facility] CREATININE 2.04(H) 0.70 - 1.20 mg/dL 04/06/2025 4:06 PM EDT [facility] Comment:METHOD TRACEABLE TO IDMS STANDARD GLUCOSE 129(H) 65 - 99 mg/dL 04/06/2025 4:06 PM EDT [facility] CALCIUM 8.9 8.5 - 10.5 mg/dL 04/06/2025 4:06 PM EDT [facility] EGFR Non-Race Dependent 32(L) >=60 ml/min/1.7 3sq.m 04/06/2025 4:06 PM EDT [facility] Comment: eGFR not reported due to non-numeric value for Creatinine. Reported eGFR is based on the CKD-EPI 2020 equation that does not use a race coefficient. Blood Venous blood / Unknown 04/06/2025 3:00 PM EDT 04/06/2025 3:31 PM EDT us Samm Serrano MD LAB BLOOD ORDERABLES Final Resu lt [facility] [address] [place] [address], documented in this encounter Visit Diagnoses Diagnosis Hyperkalemia Hyperpotassemia Non-ST elevation (NSTEMI) myocardial infarction (CMS-HCC) Heart failure, unspecified (CMS-HCC) Heart failure, unspecified documented in this encounter Additional Health Concerns Assessment Noted Time PHQ-9 Depression Total Score: 0 08/17/20 21 12:12 PM EST documented as of this encounter Care Teams Power Sewing Machine Operator Relationship Specialty Start Date End Date Samm Serrano MD PCP - General Family Medicine 02/26/24 documented as of this encounter
--- OUTSIDE RECORDS SUMMARY | 2025-05-12 14:04 | XMS_ITS | Encounter Summary ---
Author Organization [facility] [employer] s tem Address [id number] [address] [place] [address] Care Team Providers Care Levelman Name Role Phone Samm Serrano MD Primary Care Provider [phone] Encounter Details Date Type Department Care Team (Late st Contact Info) Description 01/11/2025 Lab Requisition [facility] - Lab [address] [place] [phone] Samm Serrano MD [address] [place] [address] Hypokalemia; Chronic kidney disease, unspecified Social History [...] often do you attend chur ch or restorationism services? Never 08/17/2021 Do you belong to any clubs o r organizations such as religious groups, unions, fraternal or athletic groups, or [...] Score 0 08/17/2021 [facility] Questionnaire Answer [...] - 11 x10E9/L 01/11/2025 2:39 PM EDT [facility] RBC Count 3.87(L) 4.1 - 5.7 X10E12/L 01/11/2025 2:39 PM EDT [facility] Hemoglobin 11.8(L) 13 - 17 g/dL 01/11/2025 2:39 PM EDT [facility] Hematocrit 36.0(L) 39 - 50 % 01/11/2025 2:39 PM EDT [facility] MCV 93 80 - 100 fL 01/11/2025 2:39 PM EDT [facility] MCH 30.6 27 - 34 pg 01/11/2025 2:39 PM EDT [facility] MCHC 32.9 32 - 36 g/dL 01/11/2025 2:39 PM EDT [facility] RDW 18.5(H) 11.5 - 15 % 01/11/2025 2:39 PM EDT [facility] Platelet Count 148(L) 150 - 450 X10E9/L 01/11/2025 2:39 PM EDT [facility] MPV 8.5 7 - 12 fL 01/11/2025 2:39 PM EDT [facility] Neutrophils % 60.7 % 01/11/2025 2:39 PM EDT [facility] Lymphocytes % 21.6 % 01/11/2025 2:39 PM EDT [facility] Monocytes % 10.7 % 01/11/2025 2:39 PM EDT [facility] Eosinophils % 6.5 % 01/11/2025 2:39 PM EDT [facility] Basophils % 0.5 % 01/11/2025 2:39 PM EDT [facility] Neutrophils Absolute (A) 3.1 10*3/uL 01/11/2025 2:39 PM EDT [facility] Lymphocytes Absolute 1.1 10*3/uL 01/11/2025 2:39 PM EDT [facility] Monocytes Absolute 0.6 10*3/uL 01/11/2025 2:39 PM EDT [facility] Eosinophils Absolute 0.3 10*3/uL 01/11/2025 2:39 PM EDT [facility] Basophils Absolute 0.0 10*3/uL 01/11/2025 2:39 PM EDT [facility] Differential Type AUTOMATED DIFFERENTIAL 01/11/2025 2:39 PM EDT [facility] Blood Venous blood / Unknown 01/11/2025 1:10 PM EDT 01/11/2025 2:31 PM EDT us Samm Serrano MD LAB BLOOD ORDERABLES Final Resu lt [facility] [address] [place] [address], * (ABNORMAL) Comprehensive metabolic panel (01/11/2025 1:10 PM EDT) SODIUM 136 134 - 146 mmol/L 01/11/2025 2:47 PM EDT [facility] POTASSIUM 4.1 3.5 - 5.0 mmol/L 01/11/2025 2:47 PM EDT [facility] CHLORIDE 103 98 - 109 mmol/L 01/11/2025 2:47 PM EDT [facility] CARBON DIOXIDE 26 22 - 32 mmol/L 01/11/2025 2:47 PM EDT [facility] ANION GAP 7 5 - 15 mmol/L 01/11/2025 2:47 PM EDT [facility] BLOOD UREA NITROGEN 49(H) 5 - 27 mg/dL 01/11/2025 2:47 PM EDT [facility] CREATININE 1.80(H) 0.70 - 1.20 mg/dL 01/11/2025 2:47 PM EDT [facility] Comment:METHOD TRACEABLE TO IDMS STANDARD GLUCOSE 80 65 - 99 mg/dL 01/11/2025 2:47 PM EDT [facility] CALCIUM 8.7 8.5 - 10.5 mg/dL 01/11/2025 2:47 PM EDT [facility] TOTAL PROTEIN 7.3 6.0 - 8.0 g/dL 01/11/2025 2:47 PM EDT [facility] ALBUMIN 3.4 3.2 - 5.3 g/dL 01/11/2025 2:47 PM EDT [facility] ALKALINE PHOSPHATASE 126 39 - 130 U/L 01/11/2025 2:47 PM EDT [facility] AST 21 <=41 U/L 01/11/2025 2:47 PM EDT [facility] ALT 13 <=40 U/L 01/11/2025 2:47 PM EDT [facility] BILIRUBIN,TOTAL 0.9 0.3 - 1.2 mg/dL 01/11/2025 2:47 PM EDT [facility] EGFR Non-Race Dependent 37(L) >=60 ml/min/1.7 3sq.m 01/11/2025 2:47 PM EDT [facility] Comment: eGFR not reported due to non-numeric value for Creatinine. Reported eGFR is based on the CKD-EPI 2020 equation that does not use a race coefficient. Blood Venous blood / Unknown 01/11/2025 1:10 PM EDT 01/11/2025 2:31 PM EDT us Samm Serrano MD LAB BLOOD ORDERABLES Final Resu lt [facility] [address] [place] [address], documented in this encounter Visit Diagnoses Diagnosis Hypokalemia Hypopotassemia Chronic kidney disease, unspecified documented in this encounter Additional Health Concerns Assessment Noted Time PHQ-9 Depression Total Score: 0 08/17/20 21 12:12 PM EST documented as of this encounter Care Teams Levelman Relationship Specialty Start Date End Date Samm Serrano MD PCP - General Family Medicine 02/26/24 documented as of this encounter
--- OUTSIDE RECORDS SUMMARY | 2025-05-12 14:04 | XMS_ITS | Encounter Summary ---
Author Organization [facility] [employer] s tem Address [id number] [address] [place] [address] Care Team Providers Care Ward Supervisor Name Role Phone Samm Serrano MD Primary Care Provider [phone] Encounter Details Date Type Department Care Team (Late st Contact Info) Description 03/24/2025 Lab Requisition [facility] - Lab [address] [place] [phone] Samm Serrano MD [address] [place] [address] Chronic systolic (congestive) heart failure (CMS-HCC); Chronic [...] How often do you attend chur or cheondoism services? Never 08/17/2021 Do you belong to any clubs o r organizations such as pentecostalism groups, unions, fraternal or athletic groups, or [...] Answer Date Recorded Total Score 0 08/17/2021 [facility] [...] AM EDT Chronic systolic (congestive) heart failure ([facility]-HCC) Chronic kidney disease, stage 3 unspecified (CMS-HCC) documented in this encounter Results * Prostatic specific antigen screen (03/24/2025 11:38 AM EDT) Pathologist [facility] PROSTATIC SPEC ANT <0.01 0.00 - 4.00 ng/mL 03/24/2025 7:33 PM EDT [facility] Comment: The method used for this test is Ronna Antengo DXI chemiluminescent immunoassay. Values obtained by different assay methods cannot be used interchangeably. Blood Venous blood / Unknown 03/24/2025 11:38 AM EDT 03/24/2025 12:16 PM EDT us Samm Serrano MD LAB BLOOD ORDERABLES Final Resu lt [facility] [address] [place] [address], [place] [phone] * (ABNORMAL) CBC auto differential (03/24/2025 11:38 AM EDT) [facility] WBC 5.2 4 - 11 x10E9/L 03/24/2025 12:19 PM EDT [facility] RBC Count 3.86(L) 4.1 - 5.7 X10E12/L 03/24/2025 12:19 PM EDT [facility] Hemoglobin 11.6(L) 13 - 17 g/dL 03/24/2025 12:19 PM EDT [facility] Hematocrit 35.5(L) 39 - 50 % 03/24/2025 12:19 PM EDT [facility] MCV 92 80 - 100 fL 03/24/2025 12:19 PM EDT [facility] MCH 30.0 27 - 34 pg 03/24/2025 12:19 PM EDT [facility] MCHC 32.6 32 - 36 g/dL 03/24/2025 12:19 PM EDT [facility] RDW 17.4(H) 11.5 - 15 % 03/24/2025 12:19 PM EDT [facility] Platelet Count 179 150 - 450 X10E9/L 03/24/2025 12:19 PM EDT [facility] MPV 9.2 7 - 12 fL 03/24/2025 12:19 PM EDT [facility] Neutrophils % 69.6 % 03/24/2025 12:19 PM EDT [facility] Lymphocytes % 13.4 % 03/24/2025 12:19 PM EDT [facility] Monocytes % 12.5 % 03/24/2025 12:19 PM EDT [facility] Eosinophils % 4.0 % 03/24/2025 12:19 PM EDT [facility] Basophils % 0.5 % 03/24/2025 12:19 PM EDT [facility] Neutrophils Absolute (A) 3.6 1.5 - 6.6 10*3/uL 03/24/2025 12:19 PM EDT [facility] Lymphocytes Absolute 0.7(L) 1.0 - 3.5 10*3/uL 03/24/2025 12:19 PM EDT [facility] Monocytes Absolute 0.7 0.0 - 0.9 10*3/uL 03/24/2025 12:19 PM EDT [facility] Eosinophils Absolute 0.2 0.0 - 0.4 10*3/uL 03/24/2025 12:19 PM EDT [facility] Basophils Absolute 0.0 0.0 - 0.2 10*3/uL 03/24/2025 12:19 PM EDT [facility] Differential Type AUTOMATED DIFFERENTIAL 03/24/2025 12:19 PM EDT [facility] Blood Venous blood / Unknown 03/24/2025 11:38 AM EDT 03/24/2025 12:16 PM EDT us Samm Serrano MD LAB BLOOD ORDERABLES Final Resu lt Performing Organization Address [facility] Co de Phone Number [address] [place] [address], [place] * (ABNORMAL) AST (03/24/2025 11:38 AM EDT) AST 49(H) <=41 U/L 03/24/2025 12:34 PM EDT [facility] Blood Venous blood / Unknown 03/24/2025 11:38 AM EDT 03/24/2025 12:16 PM EDT us Samm Serrano MD LAB BLOOD ORDERABLES Final Resu lt Performing Organization Address [facility] Co de Phone Number [address] [place] [address], [place] * ALT (03/24/2025 11:38 AM EDT) ALT 39 <=40 U/L 03/24/2025 12:34 PM EDT [facility] Blood Venous blood / Unknown 03/24/2025 11:38 AM EDT 03/24/2025 12:16 PM EDT us Samm Serrano MD LAB BLOOD ORDERABLES Final Resu lt Performing Organization Address City/[facility] Co de Phone Number [address] [place] [address], [place] * (ABNORMAL) Liver panel (03/24/2025 11:38 AM EDT) TOTAL PROTEIN 6.4 6.0 - 8.0 g/dL 03/24/2025 12:34 PM EDT [facility] ALBUMIN 3.2 3.2 - 5.3 g/dL 03/24/2025 12:34 PM EDT [facility] BILIRUBIN,TOTAL 0.8 0.3 - 1.2 mg/dL 03/24/2025 12:34 PM EDT [facility] ALKALINE PHOSPHATASE 138(H) 39 - 130 U/L 03/24/2025 12:34 PM EDT [facility] AST 49(H) <=41 U/L 03/24/2025 12:34 PM EDT [facility] ALT 39 <=40 U/L 03/24/2025 12:34 PM EDT [facility] BILIRUBIN,DIRECT 0.4 <=0.4 mg/dL 03/24/2025 12:34 PM EDT [facility] Blood Venous blood / Unknown 03/24/2025 11:38 AM EDT 03/24/2025 12:16 PM EDT us Samm Serrano MD LAB BLOOD ORDERABLES Final Resu lt Performing Organization Address City/State/[facility] Co de Phone Number [facility] [address] [place] [address], * Lipid profile (03/24/2025 11:38 AM EDT) CHOLESTEROL 154 150 - 200 mg/dL 03/24/2025 7:28 PM EDT [facility] TRIGLYCERIDE 55 27 - 150 mg/dL 03/24/2025 7:28 PM EDT [facility] HDL CHOLESTEROL 49 >39 mg/dL 7:28 PM EDT [facility] Comment: HDL <40 mg/dL - High Risk HDL > or = 40mg/dL- Desirable HDL >60 mg/dL - Negative Risk LDL (CALC) 94 <130 mg/dL 03/24/2025 7:28 PM EDT [facility] Comment: LDL <100 mg/dL - Desirable LDL >160 mg/dL - High Risk CHOLESTEROL:HDL 3.1 1.0 - 5.0 7:28 PM EDT [facility] VERY LOW LIPOPROTEIN 11 0 - 30 mg/dL 03/24/2025 7:28 PM EDT [facility] Blood Venous blood / Unknown 03/24/2025 11:38 AM EDT 03/24/2025 12:16 PM EDT us Samm Serrano MD LAB BLOOD ORDERABLES Final Resu lt [facility] [address] [place] [address], * (ABNORMAL) Basic Metabolic Panel (03/24/2025 11:38 AM EDT) SODIUM 134 134 - 146 mmol/L 03/24/2025 12:34 PM EDT [facility] POTASSIUM 4.7 3.5 - 5.0 mmol/L 03/24/2025 12:34 PM EDT [facility] CHLORIDE 104 98 - 109 mmol/L 03/24/2025 12:34 PM EDT [facility] CARBON DIOXIDE 21(L) 22 - 32 mmol/L 03/24/2025 12:34 PM EDT [facility] ANION GAP 9 5 - 15 mmol/L 03/24/2025 12:34 PM EDT [facility] BLOOD UREA NITROGEN 78(H) 5 - 27 mg/dL 03/24/2025 12:34 PM EDT [facility] CREATININE 2.00(H) 0.70 - 1.20 mg/dL 03/24/2025 12:34 PM EDT [facility] Comment:METHOD TRACEABLE TO IDMS STANDARD GLUCOSE 121(H) 65 - 99 mg/dL 03/24/2025 12:34 PM EDT [facility] CALCIUM 8.9 8.5 - 10.5 mg/dL 03/24/2025 12:34 PM EDT [facility] EGFR Non-Race Dependent 33(L) >=60 ml/min/1.7 3sq.m 03/24/2025 12:34 PM EDT [facility] Comment: eGFR not reported due to non-numeric value for Creatinine. Reported eGFR is based on the CKD-EPI 2020 equation that does not use a race coefficient. Blood Venous blood / Unknown 03/24/2025 11:38 AM EDT 03/24/2025 12:16 PM EDT us Samm Serrano MD LAB BLOOD ORDERABLES Final Resu lt Performing Organization Address City/State/[facility] Co de Phone Number [facility] [address] documented in this encounter Visit Diagnoses Diagnosis Chronic systolic (congestive) heart failure (CMS-HCC) Chronic kidney disease, stage 3 unspecified (CMS-HCC) documented in this encounter Additional Health Concerns Assessment Noted Time PHQ-9 Depression Total Score: 0 08/17/20 21 12:12 PM EST documented as of this encounter Care Teams Ward Supervisor Relationship Specialty Start Date End Date Samm Serrano MD PCP - General Family Medicine 02/26/24 documented as of this encounter
--- OUTSIDE RECORDS SUMMARY | 2025-05-12 14:04 | XMS_ITS | Encounter Summary ---
Author Organization [facility] Address [address] [place] [id number] Care Team Providers Care Mold Worker Name Role Phone Samm Serrano MD Primary Care Provider [phone] Tom Gonzalez Unavailable [phone] Andreas Pierre MD Unavailable Virgil Carrillo MD Unavailable Jethro Mendoza MD Unavailable Isaías Kinney MD Unavailable [phone] Source Comments In the event this information is protected by the Federal Confidentiality of Alcohol and Drug AbusePatient Records regulations: The Federal rules restrict any use of the information to criminally investigate or prosecute any alcohol or drug abuse patient.[facility] Encounter Details Date Type Department Care Team (Late st Contact Info) Description 09/28/2024 Patient Msg Radiation Oncology [address] [place] [address] [place] [address] Yung Andrade MD [address] [place] [address] Appointment Cancellation Request Social History Tobacco Use [...] any time in the past 12 m [facility], were you homeless or living in a custodial (including now)? Yes 07/22/2024 Area Deprivation Index Answer Date Rich rded National Score (1-100), lower number is lower ri sk 52 02/05/2024 State Score (1-10), lower number is lower risk 3 02/05/2024 Data from: https://www.neighborhoodatlas.medicine.[facility].edu/. Last address used for calculation [address] 02/05/2024 Sex and [...] 10:00 AM EDT Office Visit Cardiology [address] [place] [id number] Isaías Kinney MD [address] [place], [place] [id number] DX: Chronic diastolic heart failure 09/20/2025 8:15 AM EST Procedure Cardiology [address] [place] [id number] Dx. Atherosclerotic heart disease of [place] coronary artery with other forms of angina pectoris 09/20/2025 9:00 AM EST Appointment Cardiology [address] [place] [id number] Dx. Atherosclerotic heart disease of [place] coronary artery with other forms of angina pectoris 09/20/2025 9:45 AM EST Office Visit Cardiology [address] [place] [id number] Nj Wei MD [address] [place] [address] Dx. Atherosclerotic heart disease of [place] coronary artery with other forms of angina pectoris documented as of this encounter Goals Goal Patient Goal Type Associated Problems Recent Progress Patient-Stated? Author Blood Pressure < 130/80 Blood Pressure 134/63( 025 3:00 PM EDT) No Lidia Lo, ARIES documented as of this encounter Visit Diagnoses Not on filedocumented in this encounter Care Teams Mold Worker Relationship Specialty Start Date End Date Samm Serrano MD PCP - General Family Medicine 05/30/12 Tom Gonzalez [address] [place] [address] Primary Staff Physician Cardiology 12/02/18 Andreas Pierre MD [facility] [place] [address] Primary Staff Physician Cardiology 04/26/23 Virgil Carrillo MD [facility] [place] [address] Primary Staff Physician Cardiology 10/29/23 [place] [address] [place] [address] Primary Staff Physician Cardiology 12/26/23 Isaías Kinney MD [facility] [place] [phone] Primary Staff Physician Cardiology 01/10/24 documented as of this encounter
--- NOTE | 2025-05-12 14:05 | US_ITS ---
The [address] [address] Patient Name: LANDEN ROTH MRN: [id number] date: 1940 Sex: M Assigned Patient Location: US Current Patient Location: Accession/Order Number: [id number] Exam Date: 05/12/2025 14:09 Report Date: 05/14/2025 13:11 At the request of: FRANCISCA THOMPSON MD Procedure: US abdomen complete COMPLETE ABDOMINAL ULTRASOUND HISTORY: Ascites FINDINGS: Negative ultrasound Duval's sign LIVER: Unremarkable GALLBLADDER: Unremarkable BILE DUCTS: No ductal dilatation PANCREAS: Unremarkable RIGHT KIDNEY: 9.8 cm. LEFT KIDNEY: 8.7 cm. Benign anechoic subcentimeter cyst No hydronephrosis identified. No renal calculus seen. No renal mass or cyst identified. No perirenal abnormality seen. No splenic mass or enlargement seen. 4.2 cm abdominal aortic aneurysm. Unremarkable IVC There is a redemonstration of the upper abdominal ascites identified with prior renal ultrasound 04/22/2025. This appears similar. There is additional right pleural effusion in the basilar region. Pelvic region not assessed. US/US abdomen complete IMPRESSION: Mild similar upper abdominal ascites. Anechoic right basilar pleural effusion. Unremarkable solid abdominal viscera. Nonvisualization of pancreas. 4.2 cm abdominal aortic aneurysm Impression dictated by: Jalen Garrido M.D. 05/14/2025 1:11 PM Dictation Location: [place] [address] Electronically authenticated by: [id number] Y Date: 05/14/2025 13:11
--- OUTSIDE RECORDS SUMMARY | 2025-05-12 14:05 | XMS_ITS | Encounter Summary ---
Author Organization [facility] Address [address] [place] [address] Care Team Providers Care Thermodynamics Teacher Name Role Phone Samm Serrano MD Primary Care Provider +4 Tom Gonzalez Unavailable [phone] Andreas Pierre MD Unavailable Virgil Carrillo MD Unavailable Jethro Mendoza MD Unavailable Isaías Kinney MD Unavailable Source Comments In the event this information is protected by the Federal Confidentiality of Alcohol and Drug AbusePatient Records regulations: The Federal rules restrict any use of the information to criminally investigate or prosecute any alcohol or drug abuse patient.[facility] Encounter Details Date Type Department Care Team (Late st Contact Info) Description 02/25/2025 Patient [facility] -[address] [place], [place] [address]d [place] [address] Tessa Zuniga RPh A Smarter Way to Manage Your Heart Failure Medications Social History Tobacco Use Types Packs/Day Years Used Date Smoking Tobacco: Former Cigarettes 1 10 0 04/28/1972 - 04/28/1982 Pipe Passive Smoke Exposure: Never Smokeless Tobacco: Never Alcohol Use Standard Drinks/Week Comments Not Currently 0 (1 standard drink = 0.6 oz pur e alcohol) rarely [facility] Utilities Answer Date Recorded In the past 12 months has th e [employer], gas, oil, or water [employer] threatened to shut off services in your [...] risk 3 02/05/2024 Data from: https://www.neighborhoodatlas.[facility]/. Last address used for calculation [address] [...] 10:00 AM EDT Office Visit Cardiology [address] [place], [place] [id number] Isaías Kinney MD [address] [place] [address] DX: Chronic diastolic heart failure 09/20/2025 8:15 AM EST Procedure Cardiology [address] [place], [place] [phone] Dx. Atherosclerotic heart disease of [place] coronary artery with other forms of angina pectoris 09/20/2025 9:00 AM EST Appointment Cardiology [address] [place], [place] [phone] Dx. Atherosclerotic heart disease of [place] coronary artery with other forms of angina pectoris 09/20/2025 9:45 AM EST Office Visit Cardiology [address] [place], [place] [address] Nj Wei MD [address] [place] [id number] Dx. Atherosclerotic heart disease of [place] coronary artery with other forms of angina pectoris documented as of this encounter Goals Goal Patient Goal Type Associated Problems Recent Progress Patient-Stated? Author Blood Pressure < 130/80 Blood Pressure 134/63( 025 3:00 PM EDT) No Lidia Lo, ARIES documented as of this encounter Visit Diagnoses Not on filedocumented in this encounter Care Teams Thermodynamics Teacher Relationship Specialty Start Date End Date Samm Serrano MD PCP - General Family Medicine 05/30/12 Tom Gonzalez [address] [place] [address] Primary Staff Physician Cardiology 12/02/18 Andreas Pierre MD [address] [place] [address] Primary Staff Physician Cardiology 04/26/23 Virgil Carrillo MD [address] [place] [address] Primary Staff Physician Cardiology 10/29/23 Jethro Mendoza MD [address] [place] [address] Primary Staff Physician Cardiology 12/26/23 Isaías Kinney MD [address] [place] [address] Primary Staff Physician Cardiology 01/10/24 documented as of this encounter
--- OUTSIDE RECORDS SUMMARY | 2025-05-12 14:05 | XMS_ITS | Encounter Summary ---
Author Organization [facility] Address [address] [place] [address] Care Team Providers Care Beach Lifeguard Name Role Phone Samm Serrano MD Primary Care Provider +-4 Tom Gonzalez Unavailable [phone] Andreas Pierre MD Unavailable Virgil Carrillo MD Unavailable Jethro Mendoza MD Unavailable Isaías Kinney MD Unavailable [phone] Source Comments In the event this information is protected by the Federal Confidentiality of Alcohol and Drug AbusePatient Records regulations: The Federal rules restrict any use of the information to criminally investigate or prosecute any alcohol or drug abuse patient.[facility] Encounter Details Date Type Department Care Team (Late st Contact Info) Description 11/01/2023 Get Medical Advice Cardiology [address] [place] [id number] Virgil Carrillo MD [address] [place] [address] additional lab results (KE-Tbe-V-Type Natriuretic Peptide) Social History Tobacco Use Types [...] lower risk 3 04/02/2023 Data from: https://www.neigh katherinehoodatlas.[facility].edu/. Last address used for calculation [...] 10:00 AM EDT Office Visit Cardiology [address] [place], [place] [phone] Isaías Kinney MD [address] [place] [phone] DX: Chronic diastolic heart failure 09/20/2025 8:15 AM EST Procedure Cardiology [address] [place], [place] [phone] Dx. Atherosclerotic heart disease of [place] coronary artery with other forms of angina pectoris 09/20/2025 9:00 AM EST Appointment Cardiology [address] [place], [place] [phone] Dx. Atherosclerotic heart disease of [place] coronary artery with other forms of angina pectoris 09/20/2025 9:45 AM EST Office Visit Cardiology [address] [place] [address] Nj Wei MD [address] [place] [address] Dx. Atherosclerotic heart disease of [place] coronary artery with other forms of angina pectoris documented as of this encounter Visit Diagnoses Not on filedocumented in this encounter Care Teams Beach Lifeguard Relationship Specialty Start Date End Date Samm Serrano MD PCP - General Family Medicine 05/30/12 Tom Gonzalez [address] [facility] [address] Primary Staff Physician Cardiology 12/02/18 Andreas Pierre MD [address] [place] [phone] Primary Staff Physician Cardiology 04/26/23 Virgil Carrillo MD [address] [place] [address] Primary Staff Physician Cardiology 10/29/23 Jethro Mendoza MD [address] [place] [address] Primary Staff Physician Cardiology 12/26/23 Isaías Kinney MD [address] [place] [address] Primary Staff Physician Cardiology 01/10/24 documented as of this encounter
--- OUTSIDE RECORDS SUMMARY | 2025-05-12 14:05 | XMS_ITS | Encounter Summary ---
Author Organization [facility] Address [address] [place] [address] Care Team Providers Care Digester Capper Name Role Phone Samm Serrano MD Primary Care Provider +4 Tom Gonzalez Unavailable [phone] Andreas Pierre MD Unavailable Virgil Carrillo MD Unavailable Jethro Mendoza MD Unavailable Isaías Kinney MD Unavailable [phone] Source Comments In the event this information is protected by the Federal Confidentiality of Alcohol and Drug AbusePatient Records regulations: The Federal rules restrict any use of the information to criminally investigate or prosecute any alcohol or drug abuse patient.[facility] Reason for Visit * Reason Comments Appointment Encounter Details Date Type Department Care Team (Late st Contact Info) Description 12/22/2024 Telephone [facility] [address] [place] [id number] Troyziyad ANAND Mc.WOMEN'S SOCC[employer] [address] [facility] [address] [place] [phone] Appointment Social History Tobacco Use Types Packs/Day Years Used Date Smoking Tobacco: Former Cigarettes 1 10 0 04/28/1972 - 04/28/1982 Pipe Passive Smoke Exposure: Never Smokeless Tobacco: Never Alcohol Use Standard Drinks/Week Comments Not Currently 0 (1 standard drink = 0.6 oz pur e alcohol) rarely [facility] Utilities Answer Date Recorded In the [...] any time in the past 12 m [facility], were you homeless or living in a fci (including now)? Yes 07/22/2024 Area Deprivation Index Answer Date Rich rded National Score (1-100), lower number is lower ri sk 52 02/05/2024 State Score (1-10), lower number is lower risk 3 02/05/2024 Data from: https://www.neighborhoodatlas.medicine.[facility].edu/. Last address used for calculation [address] [place] [address] [address] 02/05/2024 Sex and Gender Information [...] Assessment Author No 09/25/2024 12:55 PM Allyn Garica RN * Are you blind or do [...] , 1940). Yes Number to return call [phone] Reason for Call: Appointments [facility] calling on behalf of daughter Charu and patient who is requesting to re-schedule tomorrow's Video Visit the currently is with our other Corey provider (Carlso) due to, at the time, the established [...] call back as soon as possible at [phone]. This encounter will also be forwarded to our supervisor front as well. documented in this encounter Plan of Treatment Upcoming Encounters Date Type Department Care Team (Latest Contact Info) Description 06/30/2025 10:00 AM EDT Office Visit Cardiology [address] [place] [address] Isaías Kinney MD [address] [place] [address] DX: Chronic diastolic heart failure 09/20/2025 8:15 AM EST Procedure Cardiology [address] [place] [address] Dx. Atherosclerotic heart disease of [place] coronary artery with other forms of angina pectoris 09/20/2025 9:00 AM EST Appointment Cardiology [address] [place] [address] Dx. Atherosclerotic heart disease of [place] coronary artery with other forms of angina pectoris 09/20/2025 9:45 AM EST Office Visit Cardiology [address] [place] [address] Nj Wei MD [address] [place] [address] Dx. Atherosclerotic heart disease of [place] coronary artery with other forms of angina pectoris documented as of this encounter Goals Goal Patient Goal Type Associated Problems Recent Progress Patient-Stated? Author Blood Pressure < 130/80 Blood Pressure 134/63( 025 3:00 PM EDT) Lidia Soto RN documented as of this encounter Visit Diagnoses Not on filedocumented in this encounter Care Teams Digester Capper Relationship Specialty Start Date End Date Samm Serrano MD PCP - General Family Medicine 05/30/12 Tom Gonzalez [address] [place] [address] Primary Staff Physician Cardiology 12/02/18 Andreas Pierre MD [address] [place] [address] Primary Staff Physician Cardiology 04/26/23 Virgil Carrillo MD [address] [place] [address] Primary Staff Physician Cardiology 10/29/23 Jethro Mendoza MD [address] [place] [address] Primary Staff Physician Cardiology 12/26/23 Isaías Kinney MD [address] [place] [address], [place] [address] Primary Staff Physician Cardiology 01/10/24 documented as of this encounter
--- OUTSIDE RECORDS SUMMARY | 2025-05-12 14:05 | XMS_ITS | Encounter Summary ---
Author Organization [facility] Address [address] [place] [address] Care Team Providers Care Investment Banking Associate Name Role Phone Samm Serrano MD Primary Care Provider +-4 Tom Gonzalez Unavailable [phone] Andreas Pierre MD Unavailable Virgil Carrillo MD Unavailable Jethro Mendoza MD Unavailable Isaías Kinney MD Unavailable [phone] Source Comments In the event this information is protected by the Federal Confidentiality of Alcohol and Drug AbusePatient Records regulations: The Federal rules restrict any use of the information to criminally investigate or prosecute any alcohol or drug abuse patient.[facility] Encounter Details Date Type Department Care Team (Late st Contact Info) Description 11/01/2023 Get Medical Advice Cardiology [address] [place] [phone] Virgil Carrillo MD [address] [place] [address] Lab results from 10.31.23 Social History Tobacco Use Types Packs/Day Years [...] lower risk 3 04/02/2023 Data from: https://www.neigh borhoodatlas.medicine.[facility].edu/. Last address used for calculation [address] [...] AM EDT Jia Rios RN (Hist) * Do you have difficulty [...] 10:00 AM EDT Office Visit Cardiology [address] [place] [phone] Isaías Kinney MD [address] [place] [phone] DX: Chronic diastolic heart failure 09/20/2025 8:15 AM EST Procedure Cardiology [address] [place] [address] Dx. Atherosclerotic heart disease of [place] coronary artery with other forms of angina pectoris 09/20/2025 9:00 AM EST Appointment Cardiology [address] [place] [address] Dx. Atherosclerotic heart disease of [place] coronary artery with other forms of angina pectoris 09/20/2025 9:45 AM EST Office Visit Cardiology [address] [place] [address] Nj Wei MD [address] [place] [phone] Dx. Atherosclerotic heart disease of [place] coronary artery with other forms of angina pectoris documented as of this encounter Visit Diagnoses Not on filedocumented in this encounter Care Teams Investment Banking Associate Relationship Specialty Start Date End Date Samm Serrano MD PCP - General Family Medicine 05/30/12 Tom Gonzalez [address] [place] [address] Primary Staff Physician Cardiology 12/02/18 Andreas Pierre MD [address] [place] [address] Primary Staff Physician Cardiology 04/26/23 Virgil Carrillo MD [address] [place] [address] Primary Staff Physician Cardiology 10/29/23 Jethro Mendoza MD [address] [place] [address] Primary Staff Physician Cardiology 12/26/23 Isaías Kinney MD [address] [place] [address] Primary Staff Physician Cardiology 01/10/24 documented as of this encounter
--- OUTSIDE RECORDS SUMMARY | 2025-05-12 14:05 | XMS_ITS | Encounter Summary ---
Author Organization [facility] Address [address] [place] [address] Care Team Providers Care Back Panel Padder Name Role Phone Samm Serrano MD Primary Care Provider +4 Tom Gonzalez Unavailable [phone] Andreas Pierre MD Unavailable Virgil Carrillo MD Unavailable Jethro Mendoza MD Unavailable Isaías Kinney MD Unavailable [phone] Source Comments In the event this information is protected by the Federal Confidentiality of Alcohol and Drug AbusePatient Records regulations: The Federal rules restrict any use of the information to criminally investigate or prosecute any alcohol or drug abuse patient.[facility] Reason for Visit * Reason Comments Follow Up Encounter Details Date Type Department Care Team (Late st Contact Info) Description 12/10/2024 Telephone Cardiology [address] [place] [address] Isaías Kinney MD [address] [place] [address] Follow Up Social History Tobacco Use Types Packs/Day Years Used Date Smoking Tobacco: Former Cigarettes 1 10 0 04/28/1972 - 04/28/1982 Pipe Passive Smoke Exposure: Never Smokeless Tobacco: Never Alcohol Use Standard Drinks/Week Comments Not Currently 0 (1 standard drink = 0.6 oz pur e alcohol) rarely [facility] Utilities Answer Date Recorded In the [...] any time in the past 12 m [facility], were you homeless or living in a senior living (including now)? Yes 07/22/2024 Area Deprivation Index Answer Date Rich rded National Score (1-100), lower number is lower ri sk 52 02/05/2024 State Score (1-10), lower number is lower risk 3 02/05/2024 Data from: https://www.neighborhoodatlas.medicine.[facility].edu/. Last address used for calculation [address] 02/05/2024 Sex and Gender Information [...] 9:57 AM EDT Conveyed echo results via [employer]. Can add on virtual on administrative day in late December please. Micaela Kinney MD MSc * Telephone Encounter - Lindsay Ross - 12/10/2024 1:08 PM EDT Patient had EKG and echo this past Saturday. Please call with results to daughter Charu [phone]. Thank you, Lindsay documented in this encounter Plan of Treatment Upcoming Encounters Date Type Department Care Team (Latest Contact Info) Description 06/30/2025 10:00 AM EDT Office Visit Cardiology [address] [place] [address] Isaías Kinney MD [address] [place] [address] DX: Chronic diastolic heart failure 09/20/2025 8:15 AM EST Procedure Cardiology [address] [place] [address] Dx. Atherosclerotic heart disease of [place] coronary artery with other forms of angina pectoris 09/20/2025 9:00 AM EST Appointment Cardiology [address] [place] [address] Dx. Atherosclerotic heart disease of [place] coronary artery with other forms of angina pectoris 09/20/2025 9:45 AM EST Office Visit Cardiology [address] [place] [address] Nj Wei MD [address] [place], [place] [phone] Dx. Atherosclerotic heart disease of [place] coronary artery with other forms of angina pectoris documented as of this encounter Goals Goal Patient Goal Type Associated Problems Recent Progress Patient-Stated? Author Blood Pressure < 130/80 Blood Pressure 134/63( 025 3:00 PM EDT) Lidia Soto, ARIES documented as of this encounter Visit Diagnoses Not on filedocumented in this encounter Care Teams Back Panel Padder Relationship Specialty Start Date End Date Samm Serrano MD PCP - General Family Medicine 05/30/12 Tom Gonzalez [address] [place] [address] Primary Staff Physician Cardiology 12/02/18 Andreas Pierre MD [address] [place], [place] [phone] Primary Staff Physician Cardiology 04/26/23 Virgil Carrillo MD [address] [place], [place] [phone] Primary Staff Physician Cardiology 10/29/23 Jethro Mendoza MD [address] [place] [address] Primary Staff Physician Cardiology 12/26/23 Isaías Kinney MD [address] [place], [place] [phone] Primary Staff Physician Cardiology 01/10/24 documented as of this encounter
--- OUTSIDE RECORDS SUMMARY | 2025-05-12 14:05 | XMS_ITS | Encounter Summary ---
Author Organization [facility] Address [address] [place] [address] Care Team Providers Care Script Artist Name Role Phone Samm Serrano MD Primary Care Provider +-4 Tom Gonzalez Unavailable [phone] Andreas Pierre MD Unavailable Virgil Carrillo MD Unavailable Jethro Mendoza MD Unavailable Isaías Kinney MD Unavailable [phone] Source Comments In the event this information is protected by the Federal Confidentiality of Alcohol and Drug AbusePatient Records regulations: The Federal rules restrict any use of the information to criminally investigate or prosecute any alcohol or drug abuse patient.[facility] Encounter Details Date Type Department Care Team (Late st Contact Info) Description 01/29/2024 Get Medical Advice Cardiology [address] [place] [phone] Isaías Kinney MD [address] [place] [address] Lab Results Social History Tobacco Use Types [...] lower risk 3 04/02/2023 Data from: https://www.neigh borhoodatlas.[facility].edu/. Last address used for calculation [address] [...] 10:00 AM EDT Office Visit Cardiology [address] [place] [address] Isaías Kinney MD [address] [place] [address] DX: Chronic diastolic heart failure 09/20/2025 8:15 AM EST Procedure Cardiology [address] [place] [address] Dx. Atherosclerotic heart disease of [place] coronary artery with other forms of angina pectoris 09/20/2025 9:00 AM EST Appointment Cardiology [address] [place] [address] Dx. Atherosclerotic heart disease of [place] coronary artery with other forms of angina pectoris 09/20/2025 9:45 AM EST Office Visit Cardiology [address] [place] [address] Nj Wei MD [address] [place] [address] Dx. Atherosclerotic heart disease of [place] coronary artery with other forms of angina pectoris documented as of this encounter Goals Goal Patient Goal Type Associated Problems Recent Progress Patient-Stated? Author Blood Pressure < 130/80 Blood Pressure 134/63( 025 3:00 PM EDT) Lidia Soto, RN documented as of this encounter Visit Diagnoses Not on filedocumented in this encounter Care Teams Script Artist Relationship Specialty Start Date End Date Samm Serrano MD PCP - General Family Medicine 05/30/12 Tom Gonzalez [address] [place] [address] Primary Staff Physician Cardiology 12/02/18 Andreas Pierre MD [address] [place], [place] [phone] Primary Staff Physician Cardiology 04/26/23 Virgil Carrillo MD [address] [place] [address] Primary Staff Physician Cardiology 10/29/23 Jethro Mendoza MD [address] [place] [address] Primary Staff Physician Cardiology 12/26/23 Isaías Kinney MD [address] [place] [address] Primary Staff Physician Cardiology 01/10/24 documented as of this encounter
--- OUTSIDE RECORDS SUMMARY | 2025-05-12 14:05 | XMS_ITS | Encounter Summary ---
Author Organization [facility] Address [address] [place] [address] Care Team Providers Care Body Work Auto Trimmer Name Role Phone Samm Serrano MD [...] prosecute any alcohol or drug abuse patient.[facility] Encounter Details Date Type Department Care Team (Late st Contact Info) Description 10/21/2024 Patient [facility] Internal Medicine [place] [id number] Provider, [facility] Reminder: Review your MyChart Caregiver(s) [...] the past 12 months has th e [employer], gas, oil, or water [employer] threatened to shut off services in [...] risk 3 02/05/2024 Data from: https://www.neighborhoodatlas.[facility]/. Last address used for calculation [address] [...] 10:00 AM EDT Office Visit Cardiology [address] [place], [place] [phone] Isaías Kinney MD [address] [place] [address] DX: Chronic diastolic heart failure 09/20/2025 8:15 AM EST Procedure Cardiology [address] [place], [place] [phone] Dx. Atherosclerotic heart disease of [place] coronary artery with other forms of angina pectoris 09/20/2025 9:00 AM EST Appointment Cardiology [address] [place], [place] [phone] Dx. Atherosclerotic heart disease of [place] coronary artery with other forms of angina pectoris 09/20/2025 9:45 AM EST Office Visit Cardiology [address] [place], [place] [phone] Nj Wei MD [address] [place] [phone] Dx. Atherosclerotic heart disease of [place] coronary artery with other forms of angina pectoris documented as of this encounter Goals Goal Patient Goal Type Associated Problems Recent Progress Patient-Stated? Author Blood Pressure < 130/80 Blood Pressure 134/63( 025 3:00 PM EDT) Lidia Soto, ARIES documented as of this encounter Visit Diagnoses Not on filedocumented in this encounter Care Teams Body Work Auto Trimmer Relationship Specialty Start Date End Date Samm Serrano MD PCP - General Family Medicine 05/30/12 Tom Gonzalez [address] [place] [address] Primary Staff Physician Cardiology 12/02/18 Andreas Pierre MD [address] [place] [address] Primary Staff Physician Cardiology 04/26/23 Virgil Carrillo MD [address] [place] [address] Primary Staff Physician Cardiology 10/29/23 Jethro Mendoza MD [address] [place] [address] Primary Staff Physician Cardiology 12/26/23 Isaías Kinney MD [address] [place] [address] Primary Staff Physician Cardiology 01/10/24 documented as of this encounter
--- OUTSIDE RECORDS SUMMARY | 2025-05-12 14:05 | XMS_ITS | Encounter Summary ---
Author Organization [facility] Address [address] [place] [address] Care Team Providers Care Thermostat Maker Name Role Phone Samm Serrano MD Primary Care Provider +-4 Tom Gonzalez Unavailable [phone] Andreas Pierre MD Unavailable Virgil Carrillo MD Unavailable Jethro Mendoza MD Unavailable Isaías Kinney MD Unavailable [phone] Source Comments In the event this information is protected by the Federal Confidentiality of Alcohol and Drug AbusePatient Records regulations: The Federal rules restrict any use of the information to criminally investigate or prosecute any alcohol or drug abuse patient.[facility] Encounter Details Date Type Department Care Team (Late st Contact Info) Description 01/21/2025 Get Medical Advice Cardiology [address] [place] [address] Isaías Kinney MD [address] [place] [address] Thyroid labs and medication Social History Tobacco Use Types Packs/Day Years Used Date Smoking Tobacco: Former Cigarettes 1 10 0 04/28/1972 - 04/28/1982 Pipe Passive Smoke Exposure: Never Smokeless Tobacco: Never Alcohol Use Standard Drinks/Week Comments Not Currently 0 (1 standard drink = 0.6 oz pur e alcohol) rarely [facility] Utilities Answer Date Recorded In the past [...] is lower risk 3 02/05/2024 Data from: https://www.neighborhoodatlas.medicine.[facility].edu/. Last address used for calculation [address] 02/05/2024 Sex [...] 06/30/2025 10:00 AM EDT Office Visit Cardiology [address] [place] [id number] Isaías Kinney MD [address] [place] [address] DX: Chronic diastolic heart failure 09/20/2025 8:15 AM EST Procedure Cardiology [address] [place] [id number] Dx. Atherosclerotic heart disease of [place] coronary artery with other forms of angina pectoris 09/20/2025 9:00 AM EST Appointment Cardiology [address] [place] [id number] Dx. Atherosclerotic heart disease of [place] coronary artery with other forms of angina pectoris 09/20/2025 9:45 AM EST Office Visit Cardiology [address] [place] [id number] Nj Wei MD [address] [place] [address] Dx. Atherosclerotic heart disease of [place] coronary artery with other forms of angina pectoris documented as of this encounter Goals Goal Patient Goal Type Associated Problems Recent Progress Patient-Stated? Author Blood Pressure < 130/80 Blood Pressure 134/63( 025 3:00 PM EDT) No Lidia Lo, ARIES documented as of this encounter Visit Diagnoses Not on filedocumented in this encounter Care Teams Thermostat Maker Relationship Specialty Start Date End Date Samm Serrano MD PCP - General Family Medicine 05/30/12 Tom Gonzalez [address] [place] [address] Primary Staff Physician Cardiology 12/02/18 Andreas Pierre MD [address] [place] [address] Primary Staff Physician Cardiology 04/26/23 Virgil Carrillo MD [facility] [place] [address] Primary Staff Physician Cardiology 10/29/23 Jethro Mendoza MD [address] [place] [address] Primary Staff Physician Cardiology 12/26/23 Isaías Kinney MD [facility] [place] [address] Primary Staff Physician Cardiology 01/10/24 documented as of this encounter
--- OUTSIDE RECORDS SUMMARY | 2025-05-12 15:11 | XMS_ITS | CCD ---
Author Organization [facility] Care Team Providers Care Guest Advisor Name Role Phone Samm Thompson MD Primary Care Provider [phone] Tom Gonzalez Unavailable SHARON HOOKS Referring Unavailable MARLENE KRISHNA Attending Unavailable NORMA ARORA Admitting Unavailable SAMM THOMPSON Primary Care Unavailable Samm Thompson MD Primary Care Provider [phone] Tom Gonzalez Unavailable [phone] Samm Thompson MD Primary Care Provider [phone] Tom Gonzalez Unavailable [phone] DR SAMM AYERS Primary Care Unavailable MALAIKA FAUST Consulting Unavailable MALAIKA FAUST Admitting Unavailable MALAIKA FAUST Attending Unavailable DONNA Qureshi, DR ESPINOSA Primary Care Unavailable DONNA Qureshi, DR ESPINOSA Admitting Unavailable DONNA Qureshi, DR ESPINOSA Consulting Unavailable DONNA Qureshi, DR ESPINOSA Attending Unavailable SHARON VAZQUEZ Attending Unavailable DONNA Qureshi, DR ESPINOSA Primary Care Unavailable JIM, DR AYANA Mata Consulting Unavailable SHARON VAZQUEZ Admitting Unavailable LINDA [...] ., DR ESPINOSA Attending Unavailable MISC, DR DOCTOR Gonzales Unavailable HOY ., DR ESPINOSA Primary Care Unavailable HOY ., DR ESPINOSA Admitting Unavailable HOY ., DR ESPINOSA Attending Unavailable HOY ., DR ESPINOSA Primary Care Unavailable MISC, DR DURAN Attending Unavailable MISC, DR DURAN Admitting Unavailable Zahra Pierre MD Unavailable Tom Gonzalez Unavailable [phone] Zahra Pierre MD Unavailable Virgil Carrillo MD Unavailable Efren Brady MD Unavailable Samm Thompson MD Primary Care Provider [phone] Paulina Fernandes MD Unavailable [phone] CHERYL LEES Attending Unavailable HOY, SAMM M Primary Care Unavailable ABDULAZIZ BENITEZ Unavailable CHERYL LEES Admitting Unavailable Carmela Fernandes MD Unavailable [phone] Samm Thompson MD Primary Care Provider [phone] Samm Thompson MD Primary Care Provider [phone] Samm Thompson MD Primary Care Provider [phone] Unavailable Primary Care Provider UnavailZAHRA Mora Referring Unavailable HOY, SAMM M Primary Care Unavailable DIRK SANDERS Referring Unavailable HOY, SAMM M Primary Care Unavailable Samm Thompson MD Primary Care Provider [phone] Samm Thompson MD Primary Care Provider [phone] AYANA EVANS Attending Unavailable AYANA EVANS Attending Unavailable HOY, SAMM M Primary Care Unavailable SUSANNE, LUÍS Referring Unavailable DEVEN, [place] Attending Unavailable DEVEN, [place] Referring Unavailable HOY, SAMM M Primary Care Unavailable CARMELA FERNANDES Referring Unavailable HOY, SAMM M Primary Care Unavailable DEVEN, [place] Referring Unavailable HOY, SAMM M Primary Care Unavailable CLAUDIA RODRIGUES Attending Unavailable HOY, SAMM M Primary Care Unavailable LUÍS SKINNER Referring Unavailable DEVEN, [place] Referring Unavailable CARMELA FERNANDES [...] Unavailable DEVEN, [place] Attending Unavailable DEVEN, [place] Admitting Unavailable HOY, SAMM M Primary Care Unavailable HOY, SAMM M Primary Care Unavailable CARMELA FERNANDES Referring Unavailable HOY, SAMM M Primary Care Unavailable HOY, SAMM M Primary Care Unavailable CARMELA FERNANDES Referring Unavailable CARMELA FERNANDES Attending Unavailable EFREN BRADY Referring Unavailable HOY, SAMM [...] SAMM M Primary Care Unavailable OSCAR, LEVAR Attending Unavailable OSCAR, LEVAR Admitting Unavailable HOY, SAMM M Primary Care Unavailable CARMELA FERNANDES Referring Unavailable HOY, SAMM M Primary Care Unavailable OSCAR, LEVAR Attending Unavailable LEEANN BLOUNT Admitting Unavailable JAMIE HEREDIA Referring Unavailable JESUSITA AMIN Admitting Unavailable HOY, SAMM M Primary Care Unavailable SAIDA LLANOS Attending Unavailable DEVEN, [place] Attending Unavailable HOY, SAMM M Primary Care Unavailable DEVEN, [place] Referring Unavailable HOY, SAMM M Primary Care Unavailable DEVEN, [place] Referring Unavailable HOY, SAMM M Primary Care Unavailable DEVEN, [place] Referring Unavailable HOY, SAMM M Primary Care Unavailable DEVEN, [place] Referring Unavailable HOY, SAMM M Primary Care Unavailable CARMELA FERNANDES Referring Unavailable HOY, SAMM M Primary Care Unavailable IVANIA, HARI Referring Unavailable CHANTELL, HANI Referring Unavailable PRISCILLA PENDLETON Referring Unavailable ZHUKIVSKA, JOHN M Referring Unavailabl e IVANIA, HARI Referring Unavailable KAYLEY, SARMED Referring Unavailable HOY, SAMM Referring Unavailable HORANI, MARLENE Admitting Unavailable CHANTELL, HANI Attending Unavailable ZI AMBRIZ Attending Unavailable TAYLOR ASHLEY Attending Unavailable KAYLEY, SARMED Referring Unavailable ZHUKIVSKA, JOHN M Referring Unavailabl e KAYLEY, SARMED Referring Unavailable IVANIA, HARI Referring Unavailable IVANIA, HARI Referring Unavailable IVANIA, HARI Referring Unavailable IVANIA, HARI Referring Unavailable JASKARAN RIVERA Attending Unavailable MALAIKA FAUST Attending Unavailable IVANIA, HARI Admitting Unavailable KAYLEY, SARMED Attending Unavailable CHANTELL, HANI Referring Unavailable ROBERTO, BRIA Referring Unavailable CHELSIE BECERRA Referring Unavailabl e JOSÉ MIGUEL HOWARD Referring Unavailable HOY, SAMM M Referring Unavailable [...] (2 sources) Adhesive Tape Substance Allergy 2 [facility] Work Phone: Latex (2 sources) Latex Substance Allergy 9 [facility] (20 sources) Adhesive Tape; Translations: [ADHESIVE TAPE (ROSINS)] Allergy to substance 2 [facility] Work Phone: (20 sources) Latex; Translations: [LATEX] Drug Allergy 9 [facility] (3 sources) Latex Drug allergy (disorder) 4 [facility] (5 sources) Penicillins; Translations: [PENICILLINS] Propensity to adverse reactions 5 [facility] (1 source) Adhesive agent; Translations: [ADHESIVE] Propensity to adverse reactions to drug (disorder) 4 [facility] (1 source) Amiodarone; Translations: [AMIODARONE] Drug Allergy [facility] Medications Current Medications Medication Drug Class(es) Dates Sig (Normalized) Sig (Original) aMILoride hydrochloride 5 mg oral tablet (1 source) Potassium-sparin g Diuretic Start: 03-15-2025 take 1 tablet by mouth in the morning aMILoride (Midamor) 5 MG tablet Take 5 mg by mouth in the morning. 03/15/2025 Active apixaban 2.5 mg oral tablet (20 sources) [...] 0 Active bumetanide 2 mg oral tablet (16 sources) Loop Diuretic take 1 tablet by mouth twice daily bumetanide (BUMEX) 2 mg tablet Take 2 mg by mouth two times a day. Active take 1 tablet by mouth once david y bumetanide (Bumex) 2 MG tablet Take by mouth Daily Active cephalexin 500 mg oral capsule (1 source) Cephalosporin Antibacterial Start: 03-21-2025 End: 03-26-2025 cephalexin (Keflex) 500 MG capsule Take 500 mg by mouth in the morning and 500 mg at noon and 500 mg in the evening and 500 mg before bedtime. 03/21/2025 03/26/2025 Active cetirizine hydrochloride 10 mg oral tablet [...] Sodium-Glucose Cotransporter 2 Inhibitor Start: 024 End: 026 take 1 tablet by mouth once daily [...] by mouth daily with breakfast. levothyroxine sodium 0.1 mg oral tablet (19 sources) l-Thyroxine Start: 02-17-2025 levothyroxine (Synthroid, Levoxyl) 100 MCG tablet 02/17/2025 Active Start: 09-25-2024 End: 12-24-2024 take 1 tablet by mouth once daily levothyroxine (SYNTHROID) 88 mcg tablet Take 1 tablet by mouth once daily. 90 tablet 09/25/2024 Active levothyroxine (T irosint) 88 MCG capsule Take by mouth in the morning. Take before meals. Active liothyronine sodium 0.005 mg oral tablet (1 source) l-Triiodothyronine Start: 03-16-2025 End: 04-15-2025 take 1 tablet by mouth in the morning liothyronine (Cytomel) 5 MCG tablet Take 5 mcg by mouth in the morning. 03/16/2025 04/15/2025 Active lisinopril 5 mg oral tablet (20 sources) Angiotensin Converting Enzyme Inhibitor Start: 04-11-2021 End: 08-22-2024 take 1 tablet by mouth once daily lisinopriL (PRINIVIL,ZESTRIL ) 5 mg tablet Take 5 mg by [...] once daily. ondansetron 4 mg oral tablet (4 sources) Serotonin-3 Receptor Antagonist ondansetron (Zofran) 4 [...] PHENYLephrine 2.5 % 1 Drop (AK-DILATE, IFRAH-SYNEPHRINE) potassium chloride 20 meq extended release oral tablet (20 sources) Start: 01-13-2025 potassium chlo ride CR (K-Tab) 20 MEQ ER tablet 01/13/2025 Active Start: 09-25-2024 End: 10-25-2024 take 2 tablets [...] 03-03-2024 tropicamide 1 % 1 Drop (MYDRIACYL) eshqwuw-ftie-kmagt- oreg-capryl 100 mg-150 mg- 50 mg-150 mg capsule (20 sources) take 1 capsule by mouth once daily sharvyx-perb-egylg -oreg-capryl 100 mg-150 mg- 50 mg-150 mg capsule Take 1 capsule by mouth daily. Active take 1 capsule by mo [facility] once daily pzesrmf-fule-exzzy-oreg-capryl 100 mg-15 0 mg- 50 mg-150 mg capsule Take 1 capsule by mouth daily. 0 Active zinc gluconate 50 mg oral tablet (20 sources) take 1 tablet by anuja once daily zinc gluconate 50 mg tablet [...] sources) Androgen Receptor Inhibitor Start: 021 End: 022 take 1 tablet by mouth once daily [...] Start: 05-15-2022 take 1 tablet by anuja twice daily FEROSUL 325 mg (65 mg iron) tablet Take 1 tablet by mouth twice daily. 0 05/15/2022 Active take 1 tablet by anuja th once daily ferrous sulfate 325 mg (65 mg iron) tablet Take 325 mg by mouth once daily. Suspended Comment on above: Take 1 tablet by anuja th twice daily. Take 1 tablet by anuja once daily. folic acid 1 mg oral [...] mouth Do not crush or chew. Active metoprolol tartr ate (Lopressor) 25 MG tablet every 12 (twelve) hours Active Comment on above: Take 25 mg by mouth once daily. Take 1 tablet by anuja th once daily. mexiletine hydrochloride 200 mg oral capsule (20 sources) Antiarrhythmic Start: 09-25-19 End: 12-04-19 take [...] day. Active take 1 capsule by mo ut every eight hours mexiletine (Mexitil) 150 MG [...] once daily. thiamine 50 mg oral tablet (20 sources) Start: 05-17-2024 End: 07-21-2024 take 1 tablet by mouth once daily thiamine (VITAMIN B1) 50 mg tablet Take 1 tablet by mouth once daily. 05/17/2024 07/21/2024 Discontinued (Cost of medication) End: 03-25-2025 take 1 tablet by mouth once daily thiamine (VITAMIN B1 ) 100 mg tablet Take 100 mg by mouth once daily. Active thyroid (fdc) 60 mg oral tablet (20 sources) Start: 05-25-2024 take 1 tablet by mouth once daily [employer] THYROID 60 mg tablet Take 1 tablet by mouth once daily. Give 1 tablet by mouth every 24 hours for give with 15mg =75mg total 05/25/2024 Suspended Start: 05-16-2024 End: 07-21-2024 take 1 tablet by mouth once daily, then take 1 tablet by mouth every twenty-four hours thyroid (BATTERY TEST ENGINEER THYROID) 15 mg tablet Take 1 tablet by mouth once daily. Give 1 tablet by mouth every 24 hours for give with 60mg=75mg total 05/25/2024 Suspended Start: 07-11-2023 take 1 tablet by mouth once da marin [employer] THYROID 15 mg tablet Take 15 mg by mouth once daily. 03/26/2023 Suspended take 1.25 tablets by mouth in the morning thyroid, pork, (BATTERY TEST ENGINEER THYROID) 60 mg tablet Take 1.25 tablets [...] Start: 07-26-2024 take 2 tablets by mo [facility] twice daily torsemide (DEMADEX) 20 mg tablet Take 2 tablets by mouth two times a day. 60 tablet 3 07/26/2024 Suspended Start: 03-13-2019 End: 10-29-2023 take 1 tablet by mouth once daily as needed torsemide (DEMADEX) 10 mg tablet Take 10 mg by mouth daily as needed. 03/13/2019 Active Comment on above: [facility] triamcinolone acetonide 1 mg/ml [...] Active Problems Problem Classification Problem Date Documented Da te Episodic/Chronic Acute and unspecified renal failure (19 sources) Acute kidney failure, unspecified; Translations: [Acute renal failure syndrome] Onset: 2 09-22-2024 Episodic Acute cerebrovascular disease (20 sources) Cerebrovascular accident; Translations: [Other cerebral infarction] Onset: 1 Chronic Cancer of prostate (2 sources) History of malignant neoplasm of prostate; Translations: [Personal history of malignant neoplasm of prostate] 03-31-2024 Episodic Cardiac dysrhythmias (20 sources) Atrial fibrillation and flutter ; Translations: [Atrial fib/flutter, transient] Onset: 2 03-02-2024 Chronic Cataract (1 source) Nuclear senile cataract; Translations: [Age-related nuclear cataract, bilateral] 03-02-2024 Chronic Chronic kidney disease (20 sources) Chronic kidney disease, unspecified; Translations: [Chronic kidney disease stage 3B ] Onset: 2 01-10-2024 Chronic Chronic kidney disease (5 sources) Chronic kidney disease; Translations: [CKD stage 3b, GFR 30-44 ml/min (HCC)] Onset: 4 Complication of device; implant or graft (20 sources) Arteriosclerosis of coronary artery bypass graft; Translations: [Atherosclerosis of coronary artery bypass graft(s) without angina pectoris] Onset: 3 Chronic Conduction disorders (20 sources) Presence of automatic (implantable) cardiac defibrillator; Translations: [Patient encounter status] Onset: 2 08-17-2024 Chronic Congestive heart failure; nonhypertensive (20 sources) Acute systolic heart failure; Translations: [Acute systolic (congestive) heart failure] Onset: 2 Chronic Coronary atherosclerosis and other heart disease (20 sources) Coronary atherosclerosis; Translations: [Atherosclerotic heart disease of [place]iat[place] coronary artery without angina pectoris] Onset: 2 09-11-2021 Chronic Coronary atherosclerosis and other heart disease (5 sources) Presence of aortocoronary bypass graft; Translations: [Presence of coronary angioplasty implant and graft] Onset: 2 Episodic Deficiency and other anemia (20 sources) Anemia due to blood loss; Translations: [Iron deficiency anemia secondary to blood loss (chronic)] Onset: 4 05-12-2024 Chronic Deficiency and other anemia (20 sources) Anemia of chronic disease; Translations: [Anemia in other chronic diseases classified elsewhere] Onset: 4 05-15-2024 Chronic Deficiency and other anemia (20 sources) Anemia due to chronic blood loss; Translations: [Iron deficiency anemia secondary to blood loss (chronic)] Onset: 4 05-16-2024 Chronic Deficiency and other anemia (1 source) Anemia in other chronic diseases classified elsewhere; Translations: [Anemia of chronic disease] Onset: 4 Chronic Deficiency and other anemia (5 sources) Anemia, unspecified; Translations: [ANEMIA UNSPECIFIED] Onset: 2 Episodic Diabetes mellitus with complications (20 sources) Type 2 diabetes mellitus; Translations: [Type 2 diabetes mellitus with diabetic chronic kidney disease] Onset: 3 04-26-2023 Chronic Disorders of lipid metabolism (20 sources) Hyperlipidemia; Translations: [Hyperlipidemia, unspecified] Onset: 2 Chronic Disorders of teeth and jaw (1 source) Dental caries; Translations: [Dental caries, unspecified] 02-17-2024 Episodic Esophageal disorders (1 source) Gastro-esophageal reflux disease without esophagitis; Translations: [GERD WITHOUT ESOPHAGITIS] Onset: 2 Chronic Essential hypertension (7 sources) Essential hypertension; Translations: [Essential (primary) hypertension] Onset: 4 10-30-2023 Chronic Genitourinary symptoms and ill-defined conditions (2 sources) Hematuria, unspecified; Translations: [Hematuria, unspecified] Onset: 5 Episodic Heart valve disorders (20 sources) Mitral valve regurgitation; Translations: [Nonrheumatic mitral (valve) insufficiency] Onset: 2 Chronic Hypertension with complications and secondary hypertension (7 sources) Hypertensive heart disease with heart failure; Translations: [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 disease, or unspecified chronic kidney disease] Onset: 2 Chronic Nutritional deficiencies (20 sources) Deficiency of macronutrients; Translations: [Unspecified severe protein-calorie malnutrition] Onset: 4 12-26-2023 Chronic Occlusion or stenosis of precerebral arteries (20 sources) Carotid artery stenosis; Translations: [Occlusion and stenosis of unspecified carotid artery] Onset: 2 09-11-2021 Chronic Other aftercare (1 source) Long-term current use of anticoagulant; Translations: [USP (current) use of anticoagulants] 03-01-2025 Episodic Other and ill-defined heart disease (20 sources) Mural thrombus of left ventricle; Translations: [Intracardiac thrombosis, not elsewhere classified] Onset: 4 05-06-2024 Chronic Other circulatory disease (3 sources) Presence of other cardiac implants and grafts; Translations: [S/P mitral valve clip implantation] Onset: 5 Chronic Other connective tissue disease (6 sources) Pain in toe; Translations: [Pain in right toe(s)] 12-03-2024 Episodic Other gastrointestinal disorders (2 sources) Other ascites; Translations: [Other ascites] Onset: 5 Episodic Other liver diseases (2 sources) Abnormal levels of other serum enzymes; Translations: [Abnormal levels of other serum enzymes] Onset: 5 Episodic Other lower respiratory disease (1 source) Other forms of dyspnea; Translations: [SANTILLAN (dyspnea on exertion)] Onset: 4 Episodic Other male genital disorders (20 sources) Erectile dysfunction co-occurrent and due to arterial insufficiency; Translations: [Erectile dysfunction due to arterial insufficiency] Onset: 0 10-12-2019 Chronic Other screening for suspected conditions (not mental disorders or infectious disease) (3 sources) Blood chemistry abnormal; Translations: [Abnormal finding of blood chemistry, unspecified] Onset: 5 Episodic Other skin disorders (3 sources) Dystrophia unguium; Translations: [Nail dystrophy] 12-03-2024 Episodic Other upper respiratory infections (1 source) Sore throat symptom; Translations: [Acute pharyngitis, unspecified] 12-26-2023 Episodic Adleina-; endo-; and myocarditis; cardiomyopathy (except that caused by tuberculosis or sexually transmitted disease) (20 sources) Cardiomyopathy; Translations: [Other cardiomyopathies] Onset: 4 01-10-2024 Chronic Peripheral and visceral atherosclerosis (20 sources) Peripheral vascular disease; Translations: [Peripheral vascular disease, unspecified] Onset: 3 04-26-2023 Chronic Residual codes; unclassified (3 sources) Other specified postprocedural states; Translations: [S/P mitral valve clip implantation] Onset: 5 Episodic Thyroid disorders (20 sources) Hypothyroidism; Translations: [Hypothyroidism, unspecified] Onset: 2 Chronic Transient cerebral ischemia (20 sources) Amaurosis fugax; Translations: [Amaurosis fugax] Onset: 4 02-27-2024 Chronic Unclassified (20 sources) SUMMARY Onset: 2 Unclassified (20 sources) Sweating; Translations: [Sweating] Onset: 3 Unclassified (1 source) CONTACT W/AND (SUSP) EXPOS COVID-19; Translations: [CONTACT W/AND (SUSP) EXPOS COVID-19] Onset: 2 Unclassified (1 source) Other persistent atrial fibrillation; Translations: [Persistent atrial fibrillation (HCC)] Onset: 5 Unclassified (1 source) Other ventricular tachycardia; Translations: [Other ventricular tachycardia] Onset: 4 Unclassified (1 source) Low back pain, unspecified; Translations: [Low back pain, unspecified] Onset: 4 Urinary tract infections (2 sources) Urinary tract infection, site not specified; Translations: [Urinary tract infection, site not specified] Onset: 5 Episodic Past or Other Problems Problem Classification Problem Date Documented Da te Episodic/Chronic Abdominal pain (16 sources) Indigestion; Translations: [Epigastric pain] Onset: 5 09-22-2024 Episodic Acute myocardial infarction (20 sources) [...] 1 08-17-2021 Other aftercare (1 source) Other intermediate (current) drug therapy; Translations: [OTH SNF CURRENT DRUG THERAPY] Onset: 2 Episodic Other aftercare (1 source) USP (current) use of anticoagulants; Translations: [BARREL [employer]SH[employer] ADJUSTER CURRNT USE ANTICOAGULANTS] Onset: 2 Episodic Other aftercare (16 sources) Under care of palliative care physician; Translations: [Encounter for palliative care] Onset: 5 09-22-2024 Episodic Other circulatory disease (1 source) Personal [...] Resolved: 2 Episodic Other nervous system disorders (16 sources) Taste sense altered; Translations: [Parageusia] Onset: [...] not elsewhere classified] Onset: 4 05-09-2024 Episodic Respiratory failure; insufficiency; arrest (adult) (20 [...] Unclassified (2 sources) Patient encounter status 03-01-2025 Unclassified (1 source) Other ventricular tachycardia; Translations: [Other ventricular tachycardia] Onset: 5 Results Test Name Value Interpretation Reference Range Facility B-TYPE NATRIURETIC PEPTIDEon 05-03-2025 Natriuretic peptide B (Bld) [Mass/Vol] 2591 pg/mL High <=100 [facility] Comment on above: Performed By: #### C MP #### [facility] ([facility]) [address] [place] [address]. [place] [address] VIR BASIC METABOLIC PANELon 04-16 Anion gap [Moles/Vol] 9 mmol/L Normal 5-15 [facility] Comment on above: Performed By: #### C MP #### [facility] ([facility]) [address] [place] [id number] VIR Calcium [Mass/Vol] 8.9 mg/dL Normal 8.5-10.5 [facility] Comment on above: Performed By: #### C MP #### [facility] ([address] [place] [address] VIR Chloride [Moles/Vol] 103 mmol/L Normal 98-109 [facility] Comment on above: Performed By: #### C MP #### [facility] ([address] [place] [address] VIR CO2 [Moles/Vol] 24 mmol/L Normal 22-32 [facility] Comment on above: Performed By: #### C MP #### [facility] ([address] [place] [address] VIR Creatinine [Mass/Vol] 2.10 mg/dL High 0.70-1.20 [facility] Comment on above: Result Comment: METH OD TRACEABLE TO IDMS STANDARD Performed By: #### C MP #### [facility] ([address] [place] [address] VIR GFR/1.73 sq M.predicted among non-blacks MDRD (S/P/Bld) [Vol rate/Area] 31 mL/min/{1.73_m2} Low >=60 [facility] Comment on above: Result Comment: eGFR not reported due to non-numeric value for Creatinine. Reported eGFR is based on the CKD-EPI 2021 equation that does not use a race coefficient. Performed By: #### C MP #### [facility] ([address] [place] [address] VIR Glucose [Mass/Vol] 119 mg/dL High 65-99 [facility] Comment on above: Performed By: #### C MP #### [facility] ([address] [place] [address] VIR Potassium [Moles/Vol] 3.9 mmol/L Normal 3.5-5.0 [facility] Comment on above: Performed By: #### C MP #### [facility] ([facility]) [address] [place], [place] [address]. [place] [address] VIR Sodium [Moles/Vol] 136 mmol/L Normal 134-146 [facility] Comment on above: Performed By: #### C MP #### [facility] ([address] [place] [address] VIR Urea nitrogen [Mass/Vol] 58 mg/dL High 5-27 [facility] Comment on above: Performed By: #### C MP #### [facility] ([address] [place] [address] VIR CBC WITH AUTO DIFFERENTIALon 05-03-2025 BASOPHILS ABSOLUTE COUNT (10*3/UL) BY AUTOMATED COUNT 0.0 10*3/uL Normal 0.0-0.2 [facility] Comment on above: Performed By: #### C MP #### [facility] ([address] [address] VIR BASOPHILS RELATIVE PERCENT BY AUTOMATED COUNT 0.3 % Normal [facility] Comment on above: Performed By: #### C MP #### [facility] ([address] [address] VIR CELLAVISION DIFFERENTIAL TYPE AUTOMATED DIFFERENTIAL Normal [facility] Comment on above: Performed By: #### C MP #### [facility] ([address] [place] [address] VIR Eosinophils (Bld) [#/Vol] 0.3 10*3/uL Normal 0.0-0.4 [facility] Comment on above: Performed By: #### C MP #### [facility] ([address] [place] [address] VIR EOSINOPHILS RELATIVE PERCENT BY AUTOMATED COUNT 5.2 % Normal [facility] Comment on above: Performed By: #### C MP #### [facility] ([address] [place] [address] VIR Erythrocyte distribution width (RBC) [Ratio] 17.5 % High 11.5-15 [facility] Comment on above: Performed By: #### C MP #### [facility] [facility] ([address] [place] [address] VIR Hematocrit (Bld) [Volume fraction] 32.4 % Low 39-50 [facility] Comment on above: Performed By: #### C MP #### [facility] ([address] [place] [address] VIR Hemoglobin (Bld) [Mass/Vol] 10.8 g/dL Low 13-17 [facility] Comment on above: Performed By: #### C MP #### [facility] ([address] [address] VIR LYMPHOCYTES ABSOLUTE COUNT (10*3/UL) BY AUTOMATED COUNT 0.6 10*3/uL Low 1.0-3.5 [facility] Comment on above: Performed By: #### C MP #### [facility] ([address] [place] [address] VIR LYMPHOCYTES RELATIVE PERCENT BY AUTOMATED COUNT 11.8 % Normal [facility] Comment on above: Performed By: #### C MP #### [facility] ([address] [place] [address] VIR MCH (RBC) [Entitic mass] 30.3 pg Normal 27-34 [facility] Comment on above: Performed By: #### C MP #### [facility] ([address] [place] [address] VIR MCHC (RBC) [Mass/Vol] 33.4 g/dL Normal 32-36 [facility] Comment on above: Performed By: #### C MP #### [facility] ([address] [place] [address] VIR MCV (RBC) [Entitic vol] 91 fL Normal 80-100 [facility] Comment on above: Performed By: #### C MP #### [facility] ([facility]) [address] [place] [address]. [place] [address] VIR MONOCYTES ABSOLUTE COUNT (10*3/UL) BY AUTOMATED COUNT 0.6 10*3/uL Normal 0.0-0.9 [facility] Comment on above: Performed By: #### C MP #### [facility] ([address] [place] [address] VIR MONOCYTES RELATIVE PERCENT BY AUTOMATED COUNT 11.3 % Normal [facility] Comment on above: Performed By: #### C MP #### [facility] ([address] [place] [address] VIR NEUTROPHILS ABSOLUTE COUNT BY AUTOMATED COUNT 3.6 10*3/uL Normal 1.5-6.6 [facility] Comment on above: Performed By: #### C MP #### [facility] ([address] [place] [address] VIR NEUTROPHILS RELATIVE PERCENT BY AUTOMATED COUNT 71.4 % Normal [facility] Comment on above: Performed By: #### C MP #### [facility] ([address] [place] [address] VIR Platelet mean volume (Bld) [Entitic vol] 8.5 fL Normal 7-12 [facility] Comment on above: Performed By: #### C MP #### [facility] ([address] [place] [address] VIR Platelets (Bld) [#/Vol] 135 10*3/uL Low 150-450 [facility] Comment on above: Performed By: #### C MP #### [facility] ([address] [place] [address] VIR RBC COUNT 3.56 X10E12/L Low 4.1-5.7 [facility] Comment on above: Performed By: #### C MP #### [facility] ([address] [place] [address] VIR WBC (Bld) [#/Vol] 5.0 10*3/uL Normal 4-11 [facility] Comment on above: Performed By: #### C MP #### [facility] ([address] [place] [address] VIR IRON AND TIBCon 05-03-2025 Iron [Mass/Vol] 58 ug/dL Normal 50-212 [facility] Comment on above: Performed By: #### C MP #### [facility] ([address] [place] [address] VIR IRON BINDING 314 ug/dL Normal 250-425 [facility] Comment on above: Performed By: #### C MP #### [facility] ([address] [place] [address] VIR IRON SATURATION 18 % SATURATION Low 20-50 [facility] Comment on above: Performed By: #### C MP #### [facility] ([address] [place] [address] VIR Transferrin [Mass/Vol] 224 mg/dL Normal 168-336 [facility] Comment on above: Performed By: #### C MP #### [facility] ([address] [place] [address] VIR MAGNESIUMon 05-03-2025 Magnesium [Mass/Vol] 2.6 mg/dL Normal 1.8-2.6 [facility] Comment on above: Performed By: #### C MP #### [facility] ([address] [place] [address] VIR T3, FREEon 05-03-2025 Free T3 [Mass/Vol] 2.78 pg/mL Normal 2.50-3.90 [facility] Comment on above: Performed By: #### L IPR #### [facility] ([facility]) [address] [place] [address] VIR THYROID PROFILE INCLUDES TSH FT4on 05-03-2025 Free T4 [Mass/Vol] 1.15 ng/dL Normal 0.61-1.60 [facility] Comment on above: Performed By: #### C MP #### [facility] ([facility]) [address] [place] [address] VIR TSH 0.34 uIU/mL Low 0.49-4.67 [facility] Comment on above: Performed By: #### C MP #### [facility] ([address] [place] [address] VIR 36on 04-29-2025 36 DOROTHY Silva MA Can let them know there was no significant change seen on his Xray. Thanks Spoke to patient to advise him of his X-ray results per Jesenia Rivera. Patient verbalized understanding. Normal [facility] B-TYPE NATRIURETIC PEPTIDEon 04-27-2025 Natriuretic peptide B (Bld) [Mass/Vol] 3590 pg/mL High <=100 [facility] Comment on above: Performed By: #### B BATTERY TEST ENGINEER #### [facility] ([address] [place] [address] VIR BASIC METABOLIC PANELon 04-16 Anion gap [Moles/Vol] 9 mmol/L Normal 5-15 [facility] Comment on above: Performed By: #### C MP #### [facility] ([address] [place] [address] VIR Calcium [Mass/Vol] 8.9 mg/dL Normal 8.5-10.5 [facility] Comment on above: Performed By: #### C MP #### [facility]) [address] [place] [address] VIR Chloride [Moles/Vol] 103 mmol/L Normal 98-109 [facility] Comment on above: Performed By: #### C MP #### [facility] ([address] [place] [address] VIR CO2 [Moles/Vol] 24 mmol/L Normal 22-32 [facility] Comment on above: Performed By: #### C MP #### [facility] ([address] [place] [address] VIR Creatinine [Mass/Vol] 2.12 mg/dL High 0.70-1.20 [facility] Comment on above: Result Comment: METH OD TRACEABLE TO IDMS STANDARD Performed By: #### C MP #### [facility] ([address] [place] [address] VIR GFR/1.73 sq M.predicted among non-blacks MDRD (S/P/Bld) [Vol rate/Area] 30 mL/min/{1.73_m2} Low >=60 [facility] Comment on above: Result Comment: eGFR not reported due to non-numeric value for Creatinine. Reported eGFR is based on the CKD-EPI 2021 equation that does not use a race coefficient. Performed By: #### C MP #### [facility] ([address] [place] [address] VIR Glucose [Mass/Vol] 108 mg/dL High 65-99 [facility] Comment on above: Performed By: #### C MP #### [facility] ([address] [place] [address] VIR Potassium [Moles/Vol] 4.7 mmol/L Normal 3.5-5.0 [facility] Comment on above: Performed By: #### C MP #### [facility] ([address] [place] [address] VIR Sodium [Moles/Vol] 136 mmol/L Normal 134-146 [facility] Comment on above: Performed By: #### C MP #### [facility] ([address] [place] [address] VIR Urea nitrogen [Mass/Vol] 60 mg/dL High 5-27 [facility] Comment on above: Performed By: #### C MP #### [facility] ([address] [address] VIR CBC WITH AUTO DIFFERENTIALon 04-27-2025 BASOPHILS ABSOLUTE COUNT (10*3/UL) BY AUTOMATED COUNT 0.0 10*3/uL Normal 0.0-0.2 [facility] Comment on above: Performed By: #### B BATTERY TEST ENGINEER #### [address] [place] [address] VIR BASOPHILS RELATIVE PERCENT BY AUTOMATED COUNT 0.5 % Normal [facility] Comment on above: Performed By: #### B BATTERY TEST ENGINEER #### [facility] ([address] [address] VIR CELLAVISION DIFFERENTIAL TYPE AUTOMATED DIFFERENTIAL Normal [facility] Comment on above: Performed By: #### B BATTERY TEST ENGINEER #### [facility] ([address] [place] [address] VIR Eosinophils (Bld) [#/Vol] 0.2 10*3/uL Normal 0.0-0.4 [facility] Comment on above: Performed By: #### B BATTERY TEST ENGINEER #### [facility] ([address] [address] VIR EOSINOPHILS RELATIVE PERCENT BY AUTOMATED COUNT 3.2 % Normal [facility] Comment on above: Performed By: #### B BATTERY TEST ENGINEER #### [facility] ([address] [place] [address] VIR Erythrocyte distribution width (RBC) [Ratio] 17.5 % High 11.5-15 [facility] Comment on above: Performed By: #### B BATTERY TEST ENGINEER #### [facility] ([address] [address] VIR Hematocrit (Bld) [Volume fraction] 33.8 % Low 39-50 [facility] Comment on above: Performed By: #### B BATTERY TEST ENGINEER #### [facility] ([address] [address] VIR Hemoglobin (Bld) [Mass/Vol] 11.2 g/dL Low 13-17 [facility] Comment on above: Performed By: #### B BATTERY TEST ENGINEER #### [facility] ([address] [address] VIR LYMPHOCYTES ABSOLUTE COUNT (10*3/UL) BY AUTOMATED COUNT 0.7 10*3/uL Low 1.0-3.5 [facility] Comment on above: Performed By: #### B BATTERY TEST ENGINEER #### [facility] ([address] [address] VIR LYMPHOCYTES RELATIVE PERCENT BY AUTOMATED COUNT 11.9 % Normal [facility] Comment on above: Performed By: #### B BATTERY TEST ENGINEER #### [facility] ([address] [address] VIR MCH (RBC) [Entitic mass] 30.2 pg Normal 27-34 [facility] Comment on above: Performed By: #### B BATTERY TEST ENGINEER #### [facility] ([address] [address] VIR MCHC (RBC) [Mass/Vol] 33.1 g/dL Normal 32-36 [facility] Comment on above: Performed By: #### B BATTERY TEST ENGINEER #### [facility] ([address] [address] VIR MCV (RBC) [Entitic vol] 91 fL Normal 80-100 [facility] Comment on above: Performed By: #### B BATTERY TEST ENGINEER #### [facility] ([address] [address] VIR MONOCYTES ABSOLUTE COUNT (10*3/UL) BY AUTOMATED COUNT 0.7 10*3/uL Normal 0.0-0.9 [facility] Comment on above: Performed By: #### B BATTERY TEST ENGINEER #### [facility] ([address] [address] VIR MONOCYTES RELATIVE PERCENT BY AUTOMATED COUNT 11.2 % Normal [facility] Comment on above: Performed By: #### B BATTERY TEST ENGINEER #### [facility] ([address] [address] VIR NEUTROPHILS ABSOLUTE COUNT BY AUTOMATED COUNT 4.3 10*3/uL Normal 1.5-6.6 [facility] Comment on above: Performed By: #### B BATTERY TEST ENGINEER #### [facility] ([address] [address] VIR NEUTROPHILS RELATIVE PERCENT BY AUTOMATED COUNT 73.2 % Normal [facility] Comment on above: Performed By: #### B BATTERY TEST ENGINEER #### [facility] ([address] [address] VIR Platelet mean volume (Bld) [Entitic vol] 7.9 fL Normal 7-12 [facility] Comment on above: Performed By: #### B BATTERY TEST ENGINEER #### [facility] ([address] [address] VIR Platelets (Bld) [#/Vol] 162 10*3/uL Normal 150-450 [facility] Comment on above: Performed By: #### B BATTERY TEST ENGINEER #### [facility] ([address] [address] VIR RBC COUNT 3.70 X10E12/L Low 4.1-5.7 [facility] Comment on above: Performed By: #### B BATTERY TEST ENGINEER #### [facility] ([address] [place] [address] VIR WBC (Bld) [#/Vol] 5.9 10*3/uL Normal 4-11 [facility] Comment on above: Performed By: #### B BATTERY TEST ENGINEER #### [facility] ([address] [place] [address] VIR IRON AND TIBCon 04-27-2025 Iron [Mass/Vol] 53 ug/dL Normal 50-212 [facility] Comment on above: Performed By: #### C MP #### [facility] ([address] [place] [address] VIR IRON BINDING 302 ug/dL Normal 250-425 [facility] Comment on above: Performed By: #### C MP #### [facility] ([address] [place] [address] VIR IRON SATURATION 18 % SATURATION Low 20-50 [facility] Comment on above: Performed By: #### C MP #### [facility] ([address] [place] [address] VIR Transferrin [Mass/Vol] 216 mg/dL Normal 168-336 [facility] Comment on above: Performed By: #### C MP #### [facility] ([address] [place] [address] VIR MAGNESIUMon 04-27-2025 Magnesium [Mass/Vol] 2.7 mg/dL High 1.8-2.6 [facility] Comment on above: Performed By: #### B BATTERY TEST ENGINEER #### [facility] ([address] [place] [address] VIR T3, FREEon 04-27-2025 Free T3 [Mass/Vol] 2.62 pg/mL Normal 2.50-3.90 [facility] Comment on above: Performed By: #### C MP #### [facility] ([facility]) [address] [place] [address] [place] [address] VIR THYROID PROFILE INCLUDES TSH FT4on 04-27-2025 Free T4 [Mass/Vol] 1.34 ng/dL Normal 0.61-1.60 [facility] Comment on above: Performed By: #### B BATTERY TEST ENGINEER #### [facility] ([address] [place] [address] VIR TSH 0.49 uIU/mL Normal 0.49-4.67 [facility] Comment on above: Performed By: #### B BATTERY TEST ENGINEER #### [facility] ([address] [place] [address] VIR URIC ACIDon 04-27-2025 Urate [Mass/Vol] 12.1 mg/dL High 2.6-7.2 [facility] Comment on above: Performed By: #### C MP #### [facility] ([address] [place] [address] VIR B-TYPE NATRIURETIC PEPTIDEon 04-20-2025 Natriuretic peptide B (Bld) [Mass/Vol] pg/mL High <=100 [facility] Comment on above: Performed By: #### B BATTERY TEST ENGINEER #### [facility] ([address] [place] [address] VIR BASIC METABOLIC PANELon Anion gap [Moles/Vol] 9 mmol/L Normal 5-15 [facility] Comment on above: Performed By: #### B BATTERY TEST ENGINEER #### [facility] ([address] [place] [address] VIR Calcium [Mass/Vol] 8.5 mg/dL Normal 8.5-10.5 [facility] Comment on above: Performed By: #### B BATTERY TEST ENGINEER #### [facility] ([address] [place] [address] VIR Chloride [Moles/Vol] 102 mmol/L Normal 98-109 [facility] Comment on above: Performed By: #### B BATTERY TEST ENGINEER #### [facility] ([address] [place] [address] VIR CO2 [Moles/Vol] 21 mmol/L Low 22-32 [facility] Comment on above: Performed By: #### B BATTERY TEST ENGINEER #### [facility] ([address] [place] [address] VIR Creatinine [Mass/Vol] 2.49 mg/dL High 0.70-1.20 [facility] Comment on above: Result Comment: METH OD TRACEABLE TO IDMS STANDARD Performed By: #### B BATTERY TEST ENGINEER #### [facility] ([address] [address] VIR GFR/1.73 sq M.predicted among non-blacks MDRD (S/P/Bld) [Vol rate/Area] 25 mL/min/{1.73_m2} Low >=60 [facility] Comment on above: Result Comment: eGFR not reported due to non-numeric value for Creatinine. Reported eGFR is based on the CKD-EPI 1 equation that does not use a race coefficient. Performed By: #### B BATTERY TEST ENGINEER #### [facility] ([address] [address] VIR Glucose [Mass/Vol] 151 mg/dL High 65-99 [facility] Comment on above: Performed By: #### B BATTERY TEST ENGINEER #### [facility] ([address] [address] VIR Potassium [Moles/Vol] 4.7 mmol/L Normal 3.5-5.0 [facility] Comment on above: Performed By: #### B BATTERY TEST ENGINEER #### [facility] ([address] [address] VIR Sodium [Moles/Vol] 132 mmol/L Low 134-146 [facility] Comment on above: Performed By: #### B BATTERY TEST ENGINEER #### [facility] ([address] [address] VIR Urea nitrogen [Mass/Vol] 95 mg/dL High 5-27 [facility] Comment on above: Performed By: #### B BATTERY TEST ENGINEER #### [facility] ([address] [address] VIR CBC WITH AUTO DIFFERENTIALon 04-20-2025 BASOPHILS ABSOLUTE COUNT (10*3/UL) BY AUTOMATED COUNT 0.0 10*3/uL Normal 0.0-0.2 [facility] Comment on above: Performed By: #### M G #### [facility] ([address] [address] VIR BASOPHILS RELATIVE PERCENT BY AUTOMATED COUNT 0.0 % Normal [facility] Comment on above: Performed By: #### M G #### [facility] ([address] [address] VIR CELLAVISION DIFFERENTIAL TYPE AUTOMATED DIFFERENTIAL Normal [facility] Comment on above: Performed By: #### M G #### [facility] ([address] [address] VIR Eosinophils (Bld) [#/Vol] 0.0 10*3/uL Normal 0.0-0.4 [facility] Comment on above: Performed By: #### M G #### [facility] ([address] [address] VIR EOSINOPHILS RELATIVE PERCENT BY AUTOMATED COUNT 0.0 % Normal [facility] Comment on above: Performed By: #### M G #### [facility] ([address] [address] VIR Erythrocyte distribution width (RBC) [Ratio] 16.9 % High 11.5-15 [facility] Comment on above: Performed By: #### M G #### [facility] ([address] [address] VIR Hematocrit (Bld) [Volume fraction] 34.8 % Low 39-50 [facility] Comment on above: Performed By: #### M G #### [facility] ([address] [address] VIR Hemoglobin (Bld) [Mass/Vol] 11.6 g/dL Low 13-17 [facility] Comment on above: Performed By: #### M G #### [facility] ([address] [address] VIR LYMPHOCYTES ABSOLUTE COUNT (10*3/UL) BY AUTOMATED COUNT 0.4 10*3/uL Low 1.0-3.5 [facility] Comment on above: Performed By: #### M G #### [facility] ([address] [address] VIR LYMPHOCYTES RELATIVE PERCENT BY AUTOMATED COUNT 6.3 % Normal [facility] Comment on above: Performed By: #### M G #### [facility] ([address] [address] VIR MCH (RBC) [Entitic mass] 30.0 pg Normal 27-34 [facility] Comment on above: Performed By: #### M G #### [facility] ([address] [address] VIR MCHC (RBC) [Mass/Vol] 33.4 g/dL Normal 32-36 [facility] Comment on above: Performed By: #### M G #### [facility] ([address] [address] VIR MCV (RBC) [Entitic vol] 90 fL Normal 80-100 [facility] Comment on above: Performed By: #### M G #### [facility] ([address] [place] [address] VIR MONOCYTES ABSOLUTE COUNT (10*3/UL) BY AUTOMATED COUNT 0.5 10*3/uL Normal 0.0-0.9 [facility] Comment on above: Performed By: #### M G #### [facility] ([address] [place] [address] VIR MONOCYTES RELATIVE PERCENT BY AUTOMATED COUNT 7.9 % Normal [facility] Comment on above: Performed By: #### M G #### [facility] ([address] [place] [address] VIR NEUTROPHILS ABSOLUTE COUNT BY AUTOMATED COUNT 5.1 10*3/uL Normal 1.5-6.6 [facility] Comment on above: Performed By: #### M G #### [facility] ([address] [place] [address] VIR NEUTROPHILS RELATIVE PERCENT BY AUTOMATED COUNT 85.8 % Normal [facility] Comment on above: Performed By: #### M G #### [facility] ([address] [place] [address] VIR Platelet mean volume (Bld) [Entitic vol] 8.2 fL Normal 7-12 [facility] Comment on above: Performed By: #### M G #### [facility] ([address] [place] [address] VIR Platelets (Bld) [#/Vol] 188 10*3/uL Normal 150-450 [facility] Comment on above: Performed By: #### M G #### [facility] ([address] [place] [address] VIR RBC COUNT 3.87 X10E12/L Low 4.1-5.7 [facility] Comment on above: Performed By: #### M G #### [facility] ([address] [place] [address] VIR WBC (Bld) [#/Vol] 6.0 10*3/uL Normal 4-11 [facility] Comment on above: Performed By: #### M G #### [facility] ([address] [place] [address] VIR IRON AND TIBCon 04-20-2025 Iron [Mass/Vol] 41 ug/dL Low 50-212 [facility] Comment on above: Performed By: #### B BATTERY TEST ENGINEER #### [facility] ([address] [place] [address] VIR IRON BINDING 312 ug/dL Normal 250-425 [facility] Comment on above: Performed By: #### B BATTERY TEST ENGINEER #### [facility] ([address] [place] [address] VIR IRON SATURATION 13 % SATURATION Low 20-50 [facility] Comment on above: Performed By: #### B BATTERY TEST ENGINEER #### [facility] ([address] [place] [address] VIR Transferrin [Mass/Vol] 223 mg/dL Normal 168-336 [facility] Comment on above: Performed By: #### B BATTERY TEST ENGINEER #### [facility] ([address] [place] [address] VIR MAGNESIUMon 04-20-2025 Magnesium [Mass/Vol] 2.8 mg/dL High 1.8-2.6 [facility] Comment on above: Performed By: #### B BATTERY TEST ENGINEER #### [facility] ([address] [place] [address] VIR T3, FREEon 04-20-2025 Free T3 [Mass/Vol] 2.28 pg/mL Low 2.50-3.90 [facility] Comment on above: Performed By: #### B BATTERY TEST ENGINEER #### [facility] ([address] [place] [address] VIR THYROID PROFILE INCLUDES TSH FT4on 04-20-2025 Free T4 [Mass/Vol] 1.29 ng/dL Normal 0.61-1.60 [facility] Comment on above: Performed By: #### B BATTERY TEST ENGINEER #### [facility] ([facility]) [address] [place] [address]. [place] [address] VIR TSH 0.34 uIU/mL Low 0.49-4.67 [facility] Comment on above: Performed By: #### B BATTERY TEST ENGINEER #### [facility] ([address] [place] [address] VIR MICROSCOPIC URINEon 04-16-20 25 R.B.CELLS >^100 High 0-5 [facility] Comment on above: Performed By: #### M G #### [facility] ([address] [place] [address] VIR W.B.CELLS Normal [facility] Comment on above: Result Comment: PRES ENT Performed By: #### M G #### [facility] ([address] [place] [address] VIR 36on 04-15-2025 36 [facility] Telephoneon 04-15-2025 Telephone Normal [facility] 36on 04-14-2025 36 Can do a CXR. Let [facility] know. Thanks [facility] 36 How is his weight? H ow is his breathing? Normal [facility] B-TYPE NATRIURETIC PEPTIDEon 04-13-2025 Natriuretic peptide B (Bld) [Mass/Vol] 2618 pg/mL High <=100 [facility] Comment on above: Performed By: #### M G #### [facility] (FORMERLY [facility]) [address] [place] [address]. [place] [address] VIR BASIC METABOLIC PANELon - Anion gap [Moles/Vol] 4 mmol/L Low 5-15 [facility] Comment on above: Performed By: #### M G #### [facility] ([address] [place] [address] VIR Calcium [Mass/Vol] 8.7 mg/dL Normal 8.5-10.5 [facility] Comment on above: Performed By: #### M G #### [facility] ([address] [place] [address] VIR Chloride [Moles/Vol] 106 mmol/L Normal 98-109 [facility] Comment on above: Performed By: #### M G #### [facility] ([address] [place] [address] VIR CO2 [Moles/Vol] 24 mmol/L Normal 22-32 [facility] Comment on above: Performed By: #### M G #### [facility] ([address] [place] [address] VIR Creatinine [Mass/Vol] 2.04 mg/dL High 0.70-1.20 [facility] Comment on above: Result Comment: METH OD TRACEABLE TO IDMS STANDARD Performed By: #### M G #### [facility] ([address] [place] [address] VIR GFR/1.73 sq M.predicted among non-blacks MDRD (S/P/Bld) [Vol rate/Area] 32 mL/min/{1.73_m2} Low >=60 [facility] Comment on above: Result Comment: eGFR not reported due to non-numeric value for Creatinine. Reported eGFR is based on the CKD-EPI 2021 equation that does not use a race coefficient. Performed By: #### M G #### [facility] ([address] [place] [address] VIR Glucose [Mass/Vol] 93 mg/dL Normal 65-99 [facility] Comment on above: Performed By: #### M G #### [facility] ([address] [place] [address] VIR Potassium [Moles/Vol] 4.0 mmol/L Normal 3.5-5.0 [facility] Comment on above: Performed By: #### M G #### [facility] ([address] [place] [address] VIR Sodium [Moles/Vol] 134 mmol/L Normal 134-146 [facility] Comment on above: Performed By: #### M G #### [facility] ([address] [place] [address] VIR Urea nitrogen [Mass/Vol] 42 mg/dL High 5- [facility] Comment on above: Performed By: #### M G #### [facility] ([address] [place] [address] VIR CBC WITH AUTO DIFFERENTIALon 04-13-2025 BASOPHILS ABSOLUTE COUNT (10*3/UL) BY AUTOMATED COUNT 0.0 10*3/uL Normal 0.0-0.2 [facility] Comment on above: Performed By: #### M G #### [facility] ([address] [address] VIR BASOPHILS RELATIVE PERCENT BY AUTOMATED COUNT 0.8 % Normal [facility] Comment on above: Performed By: #### M G #### [facility] ([address] [place] [address] VIR CELLAVISION DIFFERENTIAL TYPE AUTOMATED DIFFERENTIAL Normal [facility] Comment on above: Performed By: #### M G #### [facility] ([address] [place] [address] VIR Eosinophils (Bld) [#/Vol] 0.4 10*3/uL Normal 0.0-0.4 [facility] Comment on above: Performed By: #### M G #### [facility] ([address] [place] [address] VIR EOSINOPHILS RELATIVE PERCENT BY AUTOMATED COUNT 9.6 % Normal [facility] Comment on above: Performed By: #### M G #### [facility] ([address] [address] VIR Erythrocyte distribution width (RBC) [Ratio] 17.0 % High 11.5-15 [facility] Comment on above: Performed By: #### M G #### [facility] ([address] [address] VIR Hematocrit (Bld) [Volume fraction] 33.3 % Low 39-50 [facility] Comment on above: Performed By: #### M G #### [facility] ([address] [address] VIR Hemoglobin (Bld) [Mass/Vol] 11.3 g/dL Low 13-17 [facility] Comment on above: Performed By: #### M G #### [facility] ([address] [address] VIR LYMPHOCYTES ABSOLUTE COUNT (10*3/UL) BY AUTOMATED COUNT 0.7 10*3/uL Low 1.0-3.5 [facility] Comment on above: Performed By: #### M G #### [facility] ([address] [address] VIR LYMPHOCYTES RELATIVE PERCENT BY AUTOMATED COUNT 16.3 % Normal [facility] Comment on above: Performed By: #### M G #### [facility] ([address] [address] VIR MCH (RBC) [Entitic mass] 30.9 pg Normal 27-34 [facility] Comment on above: Performed By: #### M G #### [facility] ([address] [address] VIR MCHC (RBC) [Mass/Vol] 33.9 g/dL Normal 32-36 [facility] Comment on above: Performed By: #### M G #### [facility] ([address] [address] VIR MCV (RBC) [Entitic vol] 91 fL Normal 80-100 [facility] Comment on above: Performed By: #### M G #### [facility] ([address] [address] VIR MONOCYTES ABSOLUTE COUNT (10*3/UL) BY AUTOMATED COUNT 0.6 10*3/uL Normal 0.0-0.9 [facility] Comment on above: Performed By: #### M G #### [facility] ([address] [address] VIR MONOCYTES RELATIVE PERCENT BY AUTOMATED COUNT 12.9 % Normal [facility] Comment on above: Performed By: #### M G #### [facility] ([address] [address] VIR NEUTROPHILS ABSOLUTE COUNT BY AUTOMATED COUNT 2.7 10*3/uL Normal 1.5-6.6 [facility] Comment on above: Performed By: #### M G #### [facility] ([address] [address] VIR NEUTROPHILS RELATIVE PERCENT BY AUTOMATED COUNT 60.4 % Normal [facility] Comment on above: Performed By: #### M G #### [facility] ([address] [address] VIR Platelet mean volume (Bld) [Entitic vol] 7.8 fL Normal 7-12 [facility] Comment on above: Performed By: #### M G #### [facility] ([address] [address] VIR Platelets (Bld) [#/Vol] 164 10*3/uL Normal 150-450 [facility] Comment on above: Performed By: #### M G #### [facility] ([address] [place] [address] VIR RBC COUNT 3.66 X10E12/L Low 4.1-5.7 [facility] Comment on above: Performed By: #### M G #### [facility] ([address] [place] [address] VIR WBC (Bld) [#/Vol] 4.4 10*3/uL Normal 4-11 [facility] Comment on above: Performed By: #### M G #### [facility] ([address] [place] [address] VIR CNPTOUTREACHon 04-13-2025 CNPTOUTREACH Normal [facility] IRON AND TIBCon 04-13-2025 Iron [Mass/Vol] 46 ug/dL Low 50-212 [facility] Comment on above: Performed By: #### M G #### [facility] ([address] [place] [address] VIR IRON BINDING 286 ug/dL Normal 250-425 [facility] Comment on above: Performed By: #### M G #### [facility] ([address] [place] [address] VIR IRON SATURATION 16 % SATURATION Low 20-50 [facility] Comment on above: Performed By: #### M G #### [facility] ([address] [place] [address] VIR Transferrin [Mass/Vol] 204 mg/dL Normal 168-336 [facility] Comment on above: Performed By: #### M G #### [facility] ([address] [place] [address] VIR MAGNESIUMon 04-13-2025 Magnesium [Mass/Vol] 2.5 mg/dL Normal 1.8-2.6 [facility] Comment on above: Performed By: #### M G #### [facility] ([address] [place] [address] VIR T3, FREEon 04-13-2025 Free T3 [Mass/Vol] 2.25 pg/mL Low 2.50-3.90 [facility] Comment on above: Performed By: #### M G #### [facility] ([address] [place] [address] VIR THYROID PROFILE INCLUDES TSH FT4on 04-13-2025 Free T4 [Mass/Vol] 1.33 ng/dL Normal 0.61-1.60 [facility] Comment on above: Performed By: #### M G #### [facility] ([address] [place] [address] VIR TSH 0.59 uIU/mL Normal 0.49-4.67 [facility] Comment on above: Performed By: #### M G #### [facility] ([address] [place] [address] VIR 36on 04-08-2025 36 Spoke to daughter Charu. Advised daughter per Jesenia Rivera patients phosphorus is normal, Liver enzymes are stable, Albumin is low, Ammonia is normal. Daughter verbalized understanding Normal [facility] 37on 04-08-2025 37 Normal [facility] B-TYPE NATRIURETIC PEPTIDEon 04-06-2025 Natriuretic peptide B (Bld) [Mass/Vol] 3367 pg/mL High <=100 [facility] Comment on above: Performed By: #### T HYR #### [facility] ([address] [place] [address] VIR BASIC METABOLIC PANELon 03-17 Anion gap [Moles/Vol] 7 mmol/L Normal 5-15 [facility] Comment on above: Performed By: #### T HYR #### [facility] ([address] [place] [address] VIR Calcium [Mass/Vol] 8.9 mg/dL Normal 8.5-10.5 [facility] Comment on above: Performed By: #### T HYR #### [facility] ([address] [place] [address] VIR Chloride [Moles/Vol] 102 mmol/L Normal 98-109 [facility] Comment on above: Performed By: #### T HYR #### [facility] ([address] [place] [address] VIR CO2 [Moles/Vol] 25 mmol/L Normal 22-32 [facility] Comment on above: Performed By: #### T HYR #### [facility] ([address] [place] [address] VIR Creatinine [Mass/Vol] 2.04 mg/dL High 0.70-1.20 [facility] Comment on above: Result Comment: METH OD TRACEABLE TO IDMS STANDARD Performed By: #### T HYR #### [facility] ([address] [place] [address] VIR GFR/1.73 sq M.predicted among non-blacks MDRD (S/P/Bld) [Vol rate/Area] 32 mL/min/{1.73_m2} Low >=60 [facility] Comment on above: Result Comment: eGFR not reported due to non-numeric value for Creatinine. Reported eGFR is based on the CKD-EPI 2021 equation that does not use a race coefficient. Performed By: #### T HYR #### [facility] ([address] [place] [address] VIR Glucose [Mass/Vol] 129 mg/dL High 65-99 [facility] Comment on above: Performed By: #### T HYR #### [facility] ([address] [place] [address] VIR Potassium [Moles/Vol] 4.9 mmol/L Normal 3.5-5.0 [facility] Comment on above: Performed By: #### T HYR #### [facility] ([address] [place] [address] VIR Sodium [Moles/Vol] 134 mmol/L Normal 134-146 [facility] Comment on above: Performed By: #### T HYR #### [facility] ([address] [place] [address] VIR Urea nitrogen [Mass/Vol] 47 mg/dL High 5-27 [facility] Comment on above: Performed By: #### T HYR #### [facility] ([address] [place] [address] VIR CBC WITH AUTO DIFFERENTIALon 04-06-2025 BASOPHILS ABSOLUTE COUNT (10*3/UL) BY AUTOMATED COUNT 0.0 10*3/uL Normal 0.0-0.2 [facility] Comment on above: Performed By: #### T HYR #### [facility] ([address] [place] [address] VIR BASOPHILS RELATIVE PERCENT BY AUTOMATED COUNT 0.6 % Normal [facility] Comment on above: Performed By: #### T HYR #### [facility] ([address] [place] [address] VIR CELLAVISION DIFFERENTIAL TYPE AUTOMATED DIFFERENTIAL Normal [facility] Comment on above: Performed By: #### T HYR #### [facility] ([address] [place] [address] VIR Eosinophils (Bld) [#/Vol] 0.2 10*3/uL Normal 0.0-0.4 [facility] Comment on above: Performed By: #### T HYR #### [facility] ([address] [place] [address] VIR EOSINOPHILS RELATIVE PERCENT BY AUTOMATED COUNT 4.2 % Normal [facility] Comment on above: Performed By: #### T HYR #### [facility] ([address] [place] [address] VIR Erythrocyte distribution width (RBC) [Ratio] 17.3 % High 11.5-15 [facility] Comment on above: Performed By: #### T HYR #### [facility] ([address] [address] VIR Hematocrit (Bld) [Volume fraction] 34.6 % Low 39-50 [facility] Comment on above: Performed By: #### T HYR #### [facility] ([address] [address] VIR Hemoglobin (Bld) [Mass/Vol] 11.5 g/dL Low 13-17 [facility] Comment on above: Performed By: #### T HYR #### [facility] ([address] [address] VIR LYMPHOCYTES ABSOLUTE COUNT (10*3/UL) BY AUTOMATED COUNT 0.7 10*3/uL Low 1.0-3.5 [facility] Comment on above: Performed By: #### T HYR #### [facility] ([address] [address] VIR LYMPHOCYTES RELATIVE PERCENT BY AUTOMATED COUNT 12.9 % Normal [facility] Comment on above: Performed By: #### T HYR #### [facility] ([address] [address] VIR MCH (RBC) [Entitic mass] 30.4 pg Normal 27-34 [facility] Comment on above: Performed By: #### T HYR #### [facility] ([address] [place] [address] VIR MCHC (RBC) [Mass/Vol] 33.2 g/dL Normal 32-36 [facility] Comment on above: Performed By: #### T HYR #### [facility] ([address] [place] [address] VIR MCV (RBC) [Entitic vol] 92 fL Normal 80-100 [facility] Comment on above: Performed By: #### T HYR #### [facility] ([address] [address] VIR MONOCYTES ABSOLUTE COUNT (10*3/UL) BY AUTOMATED COUNT 0.7 10*3/uL Normal 0.0-0.9 [facility] Comment on above: Performed By: #### T HYR #### [facility] ([address] [address] VIR MONOCYTES RELATIVE PERCENT BY AUTOMATED COUNT 11.5 % Normal [facility] Comment on above: Performed By: #### T HYR #### [facility] ([address] [address] VIR NEUTROPHILS ABSOLUTE COUNT BY AUTOMATED COUNT 4.0 10*3/uL Normal 1.5-6.6 [facility] Comment on above: Performed By: #### T HYR #### [facility] ([address] [place] [address] VIR NEUTROPHILS RELATIVE PERCENT BY AUTOMATED COUNT 70.8 % Normal [facility] Comment on above: Performed By: #### T HYR #### [facility] ([address] [address] VIR Platelet mean volume (Bld) [Entitic vol] 8.3 fL Normal 7-12 [facility] Comment on above: Performed By: #### T HYR #### [facility] ([address] [place] [address] VIR Platelets (Bld) [#/Vol] 143 10*3/uL Low 150-450 [facility] Comment on above: Performed By: #### T HYR #### [facility] ([facility]) [address] [place] [address] [place] [address] VIR RBC COUNT 3.78 X10E12/L Low 4.1-5.7 [facility] Comment on above: Performed By: #### T HYR #### [facility] ([address] [place] [address] VIR WBC (Bld) [#/Vol] 5.7 10*3/uL Normal 4-11 [facility] Comment on above: Performed By: #### T HYR #### [facility] ([address] [place] [address] VIR IRON AND TIBCon 04-06-2025 Iron [Mass/Vol] 60 ug/dL Normal 50-212 [facility] Comment on above: Performed By: #### T HYR #### [facility] ([address] [place] [address] VIR IRON BINDING 283 ug/dL Normal 250-425 [facility] Comment on above: Performed By: #### T HYR #### [facility] ([address] [place] [address] VIR IRON SATURATION 21 % SATURATION Normal 20-50 [facility] Comment on above: Performed By: #### T HYR #### [facility] ([address] [place] [address] VIR Transferrin [Mass/Vol] 202 mg/dL Normal 168-336 [facility] Comment on above: Performed By: #### T HYR #### [facility] ([address] [place] [address] VIR MAGNESIUMon 04-06-2025 Magnesium [Mass/Vol] 2.6 mg/dL Normal 1.8-2.6 [facility] Comment on above: Performed By: #### T HYR #### [facility] ([address] [place] [address] VIR T3, FREEon 04-06-2025 Free T3 [Mass/Vol] 2.89 pg/mL Normal 2.50-3.90 [facility] Comment on above: Performed By: #### T HYR #### [facility] ([address] [place] [address] VIR T4, FREEon 04-06-2025 Free T4 [Mass/Vol] 1.19 ng/dL Normal 0.61-1.60 [facility] Comment on above: Performed By: #### T HYR #### [facility] ([address] [place] [address] VIR TSHon 04-06-2025 TSH 1.10 uIU/mL Normal 0.49-4.67 [facility] Comment on above: Performed By: #### T HYR #### [facility] ([address] [place] [address] VIR B-TYPE NATRIURETIC PEPTIDEon 03-29-2025 Natriuretic peptide B (Bld) [Mass/Vol] 2350 pg/mL High <=100 [facility] Comment on above: Performed By: #### U JÚNIOR #### [facility] ([address] [place] [address] VIR BASIC METABOLIC PANELon 03-16 Anion gap [Moles/Vol] 6 mmol/L Normal 5-15 [facility] Comment on above: Performed By: #### U JÚNIOR #### [facility] ([address] [place] [address] VIR Calcium [Mass/Vol] 8.5 mg/dL Normal 8.5-10.5 [facility] Comment on above: Performed By: #### U JÚNIOR #### [facility] ([address] [place] [address] VIR Chloride [Moles/Vol] 106 mmol/L Normal 98-109 [facility] Comment on above: Performed By: #### U JÚNIOR #### [facility] ([address] [place] [address] VIR CO2 [Moles/Vol] 22 mmol/L Normal 22-32 [facility] Comment on above: Performed By: #### U JÚNIOR #### [facility] ([address] [place] [address] VIR Creatinine [Mass/Vol] 1.95 mg/dL High 0.70-1.20 [facility] Comment on above: Result Comment: METH OD TRACEABLE TO IDMS STANDARD Performed By: #### U JÚNIOR #### [facility] ([address] [place] [address] VIR GFR/1.73 sq M.predicted among non-blacks MDRD (S/P/Bld) [Vol rate/Area] 34 mL/min/{1.73_m2} Low >=60 [facility] Comment on above: Result Comment: eGFR not reported due to non-numeric value for Creatinine. Reported eGFR is based on the CKD-EPI 2021 equation that does not use a race coefficient. Performed By: #### U JÚNIOR #### [facility] ([address] [place] [address] VIR Glucose [Mass/Vol] 91 mg/dL Normal 65-99 [facility] Comment on above: Performed By: #### U JÚNIOR #### [facility] ([address] [place] [address] VIR Potassium [Moles/Vol] 4.1 mmol/L Normal 3.5-5.0 [facility] Comment on above: Performed By: #### U JÚNIOR #### [facility] ([address] [place] [address] VIR Sodium [Moles/Vol] 134 mmol/L Normal 134-146 [facility] Comment on above: Performed By: #### U JÚNIOR #### [facility] ([address] [place] [address] VIR Urea nitrogen [Mass/Vol] 72 mg/dL High 5-27 [facility] Comment on above: Performed By: #### U JÚNIOR #### [facility] ([address] [address] VIR CBC WITH AUTO DIFFERENTIALon 03-29-2025 BASOPHILS ABSOLUTE COUNT (10*3/UL) BY AUTOMATED COUNT 0.0 10*3/uL Normal 0.0-0.2 [facility] Comment on above: Performed By: #### U JÚNIOR #### [facility] ([address] [address] VIR BASOPHILS RELATIVE PERCENT BY AUTOMATED COUNT 0.5 % Normal [facility] Comment on above: Performed By: #### U JÚNIOR #### [facility] ([address] [address] VIR CELLAVISION DIFFERENTIAL TYPE AUTOMATED DIFFERENTIAL Normal [facility] Comment on above: Performed By: #### U JÚNIOR #### [facility] ([address] [address] VIR Eosinophils (Bld) [#/Vol] 0.2 10*3/uL Normal 0.0-0.4 [facility] Comment on above: Performed By: #### U JÚNIOR #### [facility] ([address] [address] VIR EOSINOPHILS RELATIVE PERCENT BY AUTOMATED COUNT 3.9 % Normal [facility] Comment on above: Performed By: #### U JÚNIOR #### [facility] ([address] [place] [address] VIR Erythrocyte distribution width (RBC) [Ratio] 17.0 % High 11.5-15 [facility] Comment on above: Performed By: #### U JÚNIOR #### [facility] ([address] [address] VIR Hematocrit (Bld) [Volume fraction] 31.9 % Low 39-50 [facility] Comment on above: Performed By: #### U JÚNIOR #### [facility] ([address] [address] VIR Hemoglobin (Bld) [Mass/Vol] 10.7 g/dL Low 13-17 [facility] Comment on above: Performed By: #### U JÚNIOR #### [facility] ([address] [address] VIR LYMPHOCYTES ABSOLUTE COUNT (10*3/UL) BY AUTOMATED COUNT 0.6 10*3/uL Low 1.0-3.5 [facility] Comment on above: Performed By: #### U JÚNIOR #### [facility] ([address] [address] VIR LYMPHOCYTES RELATIVE PERCENT BY AUTOMATED COUNT 14.0 % Normal [facility] Comment on above: Performed By: #### U JÚNIOR #### [facility] ([address] [address] VIR MCH (RBC) [Entitic mass] 30.5 pg Normal 27-34 [facility] Comment on above: Performed By: #### U JÚNIOR #### [facility] ([address] [address] VIR MCHC (RBC) [Mass/Vol] 33.4 g/dL Normal 32-36 [facility] Comment on above: Performed By: #### U JÚNIOR #### [facility] ([address] [address] VIR MCV (RBC) [Entitic vol] 91 fL Normal 80-100 [facility] Comment on above: Performed By: #### U JÚNIRO #### [facility] ([address] [address] VIR MONOCYTES ABSOLUTE COUNT (10*3/UL) BY AUTOMATED COUNT 0.6 10*3/uL Normal 0.0-0.9 [facility] Comment on above: Performed By: #### U JÚNIOR #### [facility] ([address] [address] VIR MONOCYTES RELATIVE PERCENT BY AUTOMATED COUNT 14.0 % Normal [facility] Comment on above: Performed By: #### U JÚNIOR #### [facility] ([address] [address] VIR NEUTROPHILS ABSOLUTE COUNT BY AUTOMATED COUNT 3.1 10*3/uL Normal 1.5-6.6 [facility] Comment on above: Performed By: #### U JÚNIOR #### [facility] ([address] [address] VIR NEUTROPHILS RELATIVE PERCENT BY AUTOMATED COUNT 67.6 % Normal [facility] Comment on above: Performed By: #### U JÚNIOR #### [facility] ([address] [address] VIR Platelet mean volume (Bld) [Entitic vol] 8.8 fL Normal 7-12 [facility] Comment on above: Performed By: #### U JÚNIOR #### [facility] ([address] [address] VIR Platelets (Bld) [#/Vol] 149 10*3/uL Low 150-450 [facility] Comment on above: Performed By: #### U JÚNIOR #### [facility] ([address] [address] VIR RBC COUNT 3.50 X10E12/L Low 4.1-5.7 [facility] Comment on above: Performed By: #### U JÚNIOR #### [facility] ([address] [place] [address] VIR WBC (Bld) [#/Vol] 4.6 10*3/uL Normal 4-11 [facility] Comment on above: Performed By: #### U JÚNIOR #### [facility] ([address] [place] [address] VIR IRON AND TIBCon 03-29-2025 Iron [Mass/Vol] 46 ug/dL Low 50-212 [facility] Comment on above: Performed By: #### T HYR #### [facility] ([address] [place] [address] VIR IRON BINDING 263 ug/dL Normal 250-425 [facility] Comment on above: Performed By: #### T HYR #### [facility] ([address] [place] [address] VIR IRON SATURATION 17 % SATURATION Low 20-50 [facility] Comment on above: Performed By: #### T HYR #### [facility] ([address] [place] [address] VIR Transferrin [Mass/Vol] 188 mg/dL Normal 168-336 [facility] Comment on above: Performed By: #### T HYR #### [facility] ([address] [place] [address] VIR MAGNESIUMon 03-29-2025 Magnesium [Mass/Vol] 2.7 mg/dL High 1.8-2.6 [facility] Comment on above: Performed By: #### U JÚNIOR #### [facility] ([address] [place] [address] VIR T3, FREEon 03-29-2025 Free T3 [Mass/Vol] 2.79 pg/mL Normal 2.50-3.90 [facility] Comment on above: Performed By: #### T HYR #### [facility] ([address] [place] [address] VIR THYROID PROFILE INCLUDES TSH FT4on 03-29-2025 Free T4 [Mass/Vol] 1.12 ng/dL Normal 0.61-1.60 [facility] Comment on above: Performed By: #### U JÚNIOR #### [facility] ([address] [place] [address] VIR TSH 0.75 uIU/mL Normal 0.49-4.67 [facility] Comment on above: Performed By: #### U JÚNIOR #### [facility] ([address] [place] [address] VIR 36on 03-26-2024 36 Normal [facility] 36 Normal [facility] Orders Onlyon 03-25-2025 Orders Only Normal [facility] BASIC METABOLIC PANELon 07-0 Anion gap [Moles/Vol] 9 mmol/L Normal 5-15 [facility] Comment on above: Performed By: #### C MP #### [facility] ([address] [place] [address] VIR Calcium [Mass/Vol] 8.9 mg/dL Normal 8.5-10.5 [facility] Comment on above: Performed By: #### C MP #### [facility] ([address] [place] [address] VIR Chloride [Moles/Vol] 104 mmol/L Normal 98-109 [facility] Comment on above: Performed By: #### C MP #### [facility] ([address] [place] [address] VIR CO2 [Moles/Vol] 21 mmol/L Low 22-32 [facility] Comment on above: Performed By: #### C MP #### [facility] ([address] [address] VIR Creatinine [Mass/Vol] 2.00 mg/dL High 0.70-1.20 [facility] Comment on above: Result Comment: METH OD TRACEABLE TO IDMS STANDARD Performed By: #### C MP #### [facility] ([address] [address] VIR GFR/1.73 sq M.predicted among non-blacks MDRD (S/P/Bld) [Vol rate/Area] 33 mL/min/{1.73_m2} Low >=60 [facility] Comment on above: Result Comment: eGFR not reported due to non-numeric value for Creatinine. Reported eGFR is based on the CKD-EPI 2020 equation that does not use a race coefficient. Performed By: #### C MP #### [address] [address] VIR Glucose [Mass/Vol] 121 mg/dL High 65-99 [facility] Comment on above: Performed By: #### C MP #### [facility] ([address] [address] VIR Potassium [Moles/Vol] 4.7 mmol/L Normal 3.5-5.0 [facility] Comment on above: Performed By: #### C MP #### [address] [address] VIR Sodium [Moles/Vol] 134 mmol/L Normal 134-146 [facility] Comment on above: Performed By: #### C MP #### [facility] ([address] [address] VIR Urea nitrogen [Mass/Vol] 78 mg/dL High 5-27 [facility] Comment on above: Performed By: #### C MP #### [address] [address] VIR CBC WITH AUTO DIFFERENTIALon 03-24-2025 BASOPHILS ABSOLUTE COUNT (10*3/UL) BY AUTOMATED COUNT 0.0 10*3/uL Normal 0.0-0.2 [facility] Comment on above: Performed By: #### C MP #### [facility] ([facility]) [address] [place] [address] VIR BASOPHILS RELATIVE PERCENT BY AUTOMATED COUNT 0.5 % Normal [facility] Comment on above: Performed By: #### C MP #### [facility] ([address] [address] VIR CELLAVISION DIFFERENTIAL TYPE AUTOMATED DIFFERENTIAL Normal [facility] Comment on above: Performed By: #### C MP #### [facility] ([address] [address] VIR Eosinophils (Bld) [#/Vol] 0.2 10*3/uL Normal 0.0-0.4 [facility] Comment on above: Performed By: #### C MP #### [facility] ([address] [address] VIR EOSINOPHILS RELATIVE PERCENT BY AUTOMATED COUNT 4.0 % Normal [facility] Comment on above: Performed By: #### C MP #### [facility] ([address] [place] [address] VIR Erythrocyte distribution width (RBC) [Ratio] 17.4 % High 11.5-15 [facility] Comment on above: Performed By: #### C MP #### [facility] ([address] [place] [address] VIR Hematocrit (Bld) [Volume fraction] 35.5 % Low 39-50 [facility] Comment on above: Performed By: #### C MP #### [facility] ([address] [place] [address] VIR Hemoglobin (Bld) [Mass/Vol] 11.6 g/dL Low 13-17 [facility] Comment on above: Performed By: #### C MP #### [facility] ([address] [address] VIR LYMPHOCYTES ABSOLUTE COUNT (10*3/UL) BY AUTOMATED COUNT 0.7 10*3/uL Low 1.0-3.5 [facility] Comment on above: Performed By: #### C MP #### [facility] ([address] [address] VIR LYMPHOCYTES RELATIVE PERCENT BY AUTOMATED COUNT 13.4 % Normal [facility] Comment on above: Performed By: #### C MP #### [facility] ([address] [address] VIR MCH (RBC) [Entitic mass] 30.0 pg Normal 27-34 [facility] Comment on above: Performed By: #### C MP #### [facility] ([address] [address] VIR MCHC (RBC) [Mass/Vol] 32.6 g/dL Normal 32-36 [facility] Comment on above: Performed By: #### C MP #### [facility] ([address] [address] VIR MCV (RBC) [Entitic vol] 92 fL Normal 80-100 [facility] Comment on above: Performed By: #### C MP #### [facility] ([address] [address] VIR MONOCYTES ABSOLUTE COUNT (10*3/UL) BY AUTOMATED COUNT 0.7 10*3/uL Normal 0.0-0.9 [facility] Comment on above: Performed By: #### C MP #### [facility] ([address] [address] VIR MONOCYTES RELATIVE PERCENT BY AUTOMATED COUNT 12.5 % Normal [facility] Comment on above: Performed By: #### C MP #### [facility] ([address] [address] VIR NEUTROPHILS ABSOLUTE COUNT BY AUTOMATED COUNT 3.6 10*3/uL Normal 1.5-6.6 [facility] Comment on above: Performed By: #### C MP #### [facility] ([address] [address] VIR NEUTROPHILS RELATIVE PERCENT BY AUTOMATED COUNT 69.6 % Normal [facility] Comment on above: Performed By: #### C MP #### [facility] ([address] [address] VIR Platelet mean volume (Bld) [Entitic vol] 9.2 fL Normal 7-12 [facility] Comment on above: Performed By: #### C MP #### [facility] ([address] [address] VIR Platelets (Bld) [#/Vol] 179 10*3/uL Normal 150-450 [facility] Comment on above: Performed By: #### C MP #### [facility] ([address] [address] VIR RBC COUNT 3.86 X10E12/L Low 4.1-5.7 [facility] Comment on above: Performed By: #### C MP #### [facility] ([address] [address] VIR WBC (Bld) [#/Vol] 5.2 10*3/uL Normal 4-11 [facility] Comment on above: Performed By: #### C MP #### [facility] ([address] [address] VIR LIPID PROFILEon 03-24-2025 Cholesterol [Mass/Vol] 154 mg/dL Normal 150-200 [facility] Comment on above: Performed By: #### U JÚNIOR #### [facility] ([place] [address] [place] [address] VIR Cholesterol in HDL [Mass/Vol] 49 mg/dL Normal >39 [facility] Comment on above: Result Comment: HDL <40 mg/dL - High Risk HDL > or = 40mg/dL- Desirable HDL >60 mg/dL - Negative Risk Performed By: #### U JÚNIOR #### [facility] ([address] [place] [address] VIR Cholesterol in LDL [Mass/Vol] 94 mg/dL Normal <130 [facility] Comment on above: Result Comment: LDL <100 mg/dL - Desirable LDL >160 mg/dL - High Risk Performed By: #### U JÚNIOR #### [facility] ([address] [place] [address] VIR CHOLESTEROL:HDL 3.1 Normal 1.0-5.0 [facility] Comment on above: Performed By: #### U JÚNIOR #### [facility] ([address] [place] [address] VIR Triglyceride [Mass/Vol] 55 mg/dL Normal 27-150 [facility] Comment on above: Performed By: #### U JÚNIOR #### [facility] ([address] [place] [address] VIR VERY LOW LIPOPROTEIN 11 mg/dL Normal 0-30 [facility] Comment on above: Performed By: #### U JÚNIOR #### [facility] ([address] [place] [address] VIR LIVER PANELon 03-24-2025 Albumin [Mass/Vol] 3.2 g/dL Normal 3.2-5.3 [facility] Comment on above: Performed By: #### U JÚNIOR #### [facility] ([address] [place] [address] VIR ALP [Catalytic activity/Vol] 138 U/L High 39-130 [facility] Comment on above: Performed By: #### U JÚNIOR #### [facility] ([address] [place] [address] VIR ALT [Catalytic activity/Vol] 39 U/L Normal <=40 [facility] Comment on above: Performed By: #### U JÚNIOR #### [facility] ([address] [place] [address] VIR AST [Catalytic activity/Vol] 49 U/L High <=41 [facility] Comment on above: Performed By: #### U JÚNIOR #### [facility] ([address] [place] [address] VIR Bilirubin [Mass/Vol] 0.8 mg/dL Normal 0.3-1.2 [facility] Comment on above: Performed By: #### U JÚNIOR #### [facility] ([address] [place] [address] VIR Bilirubin.indirect [Mass/Vol] 0.4 mg/dL Normal <=0.4 [facility] Comment on above: Performed By: #### U JÚNIOR #### [facility] ([address] [place] [address] VIR Protein [Mass/Vol] 6.4 g/dL Normal 6.0-8.0 [facility] Comment on above: Performed By: #### U JÚNIOR #### [facility] ([address] [address] VIR Orders Onlyon 03-24-2025 Orders Only Normal [facility] PROSTATIC SPECIFIC ANTIGEN S CREENon 03-24-2025 PROSTATIC SPEC ANT <^0.01 Normal 0.00-4.00 [facility] Comment on above: Result Comment: The method used for this test is [employer] DXI chemiluminescent immunoassay. Values obtained by different assay methods cannot be used interchangeably. Performed By: #### U JÚNIOR #### [facility] ([facility]) [address] [place] [address] VIR CNPNon 03-22-2025 CNPN Normal [facility] APTTon 03-21-2025 ACTIVATED PARTIAL THROMBOPLASTIN TIME IN PPP BY COAGULATION ASSAY 29.5 Seconds Normal 25.0-35.0 [facility] Comment on above: Result Comment: Clin ical significance of the APTT is questionable in the presence of heparin. Performed By: #### L [id number] ####[facility] ([facility])[address] [place] [address] BASIC METABOLIC PANELon Anion gap [Moles/Vol] 12 mmol/L Normal 7-20 [facility] Comment on above: Performed By: #### L [id number] ####[facility] ([facility]AK[facility])[address] [place] [address] Calcium [Mass/Vol] 9.3 mg/dL Normal 8.6-10.3 [facility] Comment on above: Performed By: #### L [id number] ####[facility] ([facility])[address] [place] [address] Chloride [Moles/Vol] 102 mmol/L Normal 98-107 [facility] Comment on above: Performed By: #### L [id number] ####[facility] (BEAKER)[address] [place] [address] CO2 [Moles/Vol] 25 mmol/L Normal 21-31 [facility] Comment on above: Performed By: #### L [id number] ####[facility] ([facility])[address] [place] [address] Creatinine [Mass/Vol] 1.98 mg/dL High 0.70-1.30 [facility] Comment on above: Performed By: #### L [id number] ####[facility] ([facility]AKER)[address] [place] [address] GLOMERULAR FILTRATION RATE ML/MIN/1.73 SQ M.PREDICTED 32.9 mL/min/1.73m*2 Low >60.0 [facility] Comment on above: Result Comment: The [facility]???s estimated glomerular filtration rate (eGFR) will no [...] of individuals. Performed By: #### L [id number] ####[facility] ([facility])[address] [place] [address] Glucose [Mass/Vol] 89 mg/dL Normal 70-100 [facility] Comment on above: Performed By: #### L [id number] ####[facility] ([facility])[address] [place] [address] Potassium [Moles/Vol] 4.5 mmol/L Normal 3.5-5.1 [facility] Comment on above: Performed By: #### L [id number] ####[facility] ([facility])[address] [place] [address] Sodium [Moles/Vol] 134 mmol/L Low 136-145 [facility] Comment on above: Performed By: #### L [id number] ####[facility] ([facility])[address] [place] [address] Urea nitrogen [Mass/Vol] 64 mg/dL High 7-25 [facility] Comment on above: Performed By: #### L [id number] ####[facility] ([facility])[address] [place] [address] UREA NITROGEN/CREATININE (MASS RATIO) IN SER/PLAS 32.3 Normal [facility] Comment on above: Performed By: #### L [id number] ####[facility] ([facility])[address] [place] [address] CBC WITH AUTO DIFFERENTIALon 03-21-2025 Basophils (Bld) [#/Vol] 0.03 10*3/uL Normal 0.00-0.20 [facility] Comment on above: Performed By: #### L [id number] ####[facility] (BEAKER)[address] [place] [address] Basophils/100 WBC (Bld) 0.7 % Normal 0.0-1.0 [facility] Comment on above: Performed By: #### L [id number] ####[facility] ([facility]AKER)[address] [place] [address] Eosinophils (Bld) [#/Vol] 0.33 10*3/uL Normal 0.00-0.50 [facility] Comment on above: Performed By: #### L [id number] ####[facility] (BEAKER)[address] [place] [address] Eosinophils/100 WBC (Bld) 8.0 % High 0.0-6.0 [facility] Comment on above: Performed By: #### L [id number] ####[facility] (BEAKER)[address] [place] [address] Erythrocyte distribution width (RBC) [Ratio] 16.0 % High 11.5-15.0 [facility] Comment on above: Performed By: #### L [id number] ####[facility] (BEAKER)[address] [place] [address] ERYTHROCYTE MEAN CORPUSCULAR HEMOGLOBIN CONCENTRATION (G/DL) BY AUTOMATED 30.8 g/dL Low 32.0-35.0 [facility] Comment on above: Performed By: #### L [id number] ####[facility] (BEAKER)[address] [place] [address] Hematocrit (Bld) [Volume fraction] 39.6 % Normal 39.0-50.0 [facility] Comment on above: Performed By: #### L [id number] ####[facility] (BEAKER)[address] [place] [address] Hemoglobin (Bld) [Mass/Vol] 12.2 g/dL Low 13.0-17.0 [facility] Comment on above: Performed By: #### L [id number] ####[facility] (BEAKER)[address] [place] [address] Immature granulocytes (Bld) [#/Vol] 0.02 10*3/uL Normal 0.00-0.20 [facility] Comment on above: Performed By: #### L [id number] ####[facility] ([facility])[address] [place] [address] Immature granulocytes/100 WBC (Bld) 0.5 % Normal 0.0-1.0 [facility] Comment on above: Performed By: #### L [id number] ####[facility] ([facility])[address] [place] [address] Lymphocytes (Bld) [#/Vol] 0.85 10*3/uL Low 1.20-4.00 [facility] Comment on above: Performed By: #### L [id number] ####[facility] ([facility])[address] [place] [address] Lymphocytes/100 WBC (Bld) 20.6 % Normal 20.0-45.0 [facility] Comment on above: Performed By: #### L [id number] ####[facility] (BEAKER)[address] [place] [address] MCH (RBC) [Entitic mass] 30.1 pg Normal 27.0-33.0 [facility] Comment on above: Performed By: #### L [id number] ####[facility] (BEAKER)[address] [place] [address] MCV (RBC) [Entitic vol] 97.8 fL Normal 82.0-98.0 [facility] Comment on above: Performed By: #### L [id number] ####[facility] (BEAKER)[address] [place] [address] Monocytes (Bld) [#/Vol] 0.59 10*3/uL Normal 0.10-1.00 [facility] Comment on above: Performed By: #### L [id number] ####[facility] ([facility])[address] [place] [address] Monocytes/100 WBC (Bld) 14.3 % High 5.0-12.0 [facility] Comment on above: Performed By: #### L [id number] ####[facility] ([facility])[address] [place] [address] Neutrophils (Bld) [#/Vol] 2.30 10*3/uL Normal 1.60-7.60 [facility] Comment on above: Performed By: #### L [id number] ####[facility] ([facility])[address] [place] [address] Neutrophils/100 WBC (Bld) 55.9 % Normal 40.0-72.0 [facility] Comment on above: Performed By: #### L [id number] ####[facility] ([facility])[address] [place] [address] NRBC (PER 100 WBCS) BY AUTOMATED COUNT 0.0 % Normal 0 [facility] Comment on above: Performed By: #### L [id number] ####[facility] ([facility])[address] [place] [address] PLATELETS (10*3/UL) IN BLOOD AUTOMATED COUNT 196 10*3/uL Normal 150-400 [facility] Comment on above: Performed By: #### L [id number] ####[facility] ([facility])[address] [place] [address] RBC (Bld) [#/Vol] 4.05 10*6/uL Low 4.20-5.70 [facility] Comment on above: Performed By: #### L [id number] ####[facility] ([facility])[address] [place] [address] WBC (Bld) [#/Vol] 4.12 10*3/uL Normal 4.00-10.60 [facility] Comment on above: Performed By: #### L [id number] ####[facility] ([employer])[address] [place] [address] EDPROVon 03-21-2025 EDPROV Normal [facility] PROTIME-INRon 03-21-2025 INR IN PPP BY COAGULATION ASSAY 1.44 High 0.90-1.10 [facility] Comment on above: Result Comment: ACCC P [...] CHEST 1995;[id number]. Performed By: #### L [id number] ####[facility] [employer])[address] [place] [address] PROTHROMBIN TIME (PT) IN PPP BY COAGULATION ASSAY 17.6 Seconds High 12.3-14.8 [facility] Comment on above: Performed By: #### L [id number] ####[facility] ([employer])[address] [place] [address] URINALYSIS MICROSCOPIC WITH REFLEX CULTUREon 03-21-2025 RBC (#/HPF) IN URINE SEDIMENT >20 Abnormal None Seen, 0-2 [facility] Comment on above: Performed By: #### L [id number] ####[facility] ([employer])[address] [place] [address] SQUAMOUS EPITHELIAL CELLS (#/LPF) IN URINE SEDIMENT None Seen Normal None Seen, Occasional, Few [facility] Comment on above: Performed By: #### L [id number] ####[facility] ([facility])[address] [place] [address] WBC (LEUKOCYTE) (#/HPF) IN URINE SEDIMENT 21-50 Abnormal None Seen, 0-2 [facility] Comment on above: Performed By: #### L [id number] ####[facility] ([facility])[address] [place] [address] URINALYSIS WITH REFLEX CULTU REon 03-21-2025 BILIRUBIN, TOTAL PRESENCE IN URINE Unable to Perform Due to Color Interference Normal Negative [facility] Comment on above: Performed By: #### L [id number] ####[facility] ([facility])[address] [place] [address] Clarity (U) Turbid Abnormal Clear [facility] Comment on above: Performed By: #### L [id number] ####[facility] ([facility])[address] [place] [address] Color (U) Red Abnormal Colorless, Yellow, Light-Yellow [facility] Comment on above: Performed By: #### L [id number] ####[facility] ([facility])[address] [place] [address] GLUCOSE (MG/DL) IN URINE Unable to Perform Due to Color Interference Normal Normal [facility] Comment on above: Performed By: #### L [id number] ####[facility] ([facility])[address] [place] [address] HEMOGLOBIN PRESENCE IN URINE Unable to Perform Due to Color Interference Normal Negative [facility] Comment on above: Performed By: #### L [id number] ####[facility] ([facility])[address] [place] [address] Ketones Ql (U) Unable to Perform Du e to Color Interference Normal Negative [facility] Comment on above: Performed By: #### L [id number] ####[facility] (BEAKER)[address] [place] [address] LEUKOCYTE ESTERASE PRESENCE IN URINE BY TEST STRIP Unable to Perform Due to Color Interference Normal Negative [facility] Comment on above: Performed By: #### L [id number] ####[facility] ([facility])[address] [place] [address] NITRITE PRESENCE IN URINE Unable to Perform Due to Color Interference Normal Negative [facility] Comment on above: Performed By: #### L [id number] ####[facility] ([facility])[address] [place] [address] pH (U) 7.0 [pH] Normal 5.0-8.0 [facility] Comment on above: Performed By: #### L [id number] ####[facility] ([facility])[address] [place] [address] PROTEIN (MG/DL) IN URINE BY TEST STRIP Unable to Perform Due to Color Interference Normal Negative [facility] Comment on above: Performed By: #### L [id number] ####[facility] ([facility])[address] [place] [address] Specific gravity (U) [Rel density] 1.007 Low 1.010-1.030 [facility] Comment on above: Performed By: #### L [id number] ####[facility] ([facility])[address] [place] [address] UROBILINOGEN (MG/DL) IN URINE Unable to Perform Due to Color Interference Normal Normal [facility] Comment on above: Performed By: #### L [id number] ####[facility] ([facility])[address] [place] [address] URINE CULTURE, ROUTINEon Bacteria identified Cx Nom (U) No growth at 48 hours Normal [facility] Comment on above: Performed By: #### L [id number] ####[facility] ([facility])[address] [place] [address] 36on 03-17-2025 36 Normal [facility] Telephoneon 03-17-2025 Telephone Normal [facility] 30on 03-16-2025 30 The patient is Moder ately Stable - Low risk of patient condition declining or worsening The patient's goals for the shift include comfort, discharge The clinical goals for the shift include VSS, safety Normal [facility] 30 Normal [facility] BASIC METABOLIC PANELon 07-0 Anion gap [Moles/Vol] 11 mmol/L Normal 7-20 [facility] Comment on above: Performed By: #### L [id number] ####[facility] ([facility])[address] [place] [address] Calcium [Mass/Vol] 9.2 mg/dL Normal 8.6-10.3 [facility] Comment on above: Performed By: #### L [id number] ####[facility] ([facility])[address] [place] [address] Chloride [Moles/Vol] 99 mmol/L Normal 98-107 [facility] Comment on above: Performed By: #### L [id number] ####[facility] ([facility])[address] [place] [address] CO2 [Moles/Vol] 30 mmol/L Normal 21-31 [facility] Comment on above: Performed By: #### L [id number] ####[facility] ([facility])[address] [place] [address] Creatinine [Mass/Vol] 2.20 mg/dL High 0.70-1.30 [facility] Comment on above: Performed By: #### L [id number] ####[facility] ([facility])[address] [place] [address] GLOMERULAR FILTRATION RATE ML/MIN/1.73 SQ M.PREDICTED 29.0 mL/min/1.73m*2 Low >60.0 [facility] Comment on above: Result Comment: The [facility]???s estimated glomerular filtration rate (eGFR) will no [...] of individuals. Performed By: #### L [id number] ####[facility] ([facility])[address] [place] [address] Glucose [Mass/Vol] 85 mg/dL Normal 70-100 [facility] Comment on above: Performed By: #### L [id number] ####[facility] ([facility])[address] [place] [address] Potassium [Moles/Vol] 4.3 mmol/L Normal 3.5-5.1 [facility] Comment on above: Performed By: #### L [id number] ####[facility] ([facility])[address] [place] [address] Sodium [Moles/Vol] 136 mmol/L Normal 136-145 [facility] Comment on above: Performed By: #### L [id number] ####[facility] ([facility])[address] [place] [address] Urea nitrogen [Mass/Vol] 68 mg/dL High 7-25 [facility] Comment on above: Performed By: #### L [id number] ####[facility] ([facility])[address] [place] [address] UREA NITROGEN/CREATININE (MASS RATIO) IN SER/PLAS 30.9 Normal [facility] Comment on above: Performed By: #### L [id number] ####[facility] ([facility])[address] [place] [address] CBCon 03-16-2025 Erythrocyte distribution width (RBC) [Ratio] 16.0 % High 11.5-15.0 [facility] Comment on above: Performed By: #### L [id number] ####[facility] ([facility])[address] [place] [address] ERYTHROCYTE MEAN CORPUSCULAR HEMOGLOBIN CONCENTRATION (G/DL) BY AUTOMATED 31.5 g/dL Low 32.0-35.0 [facility] Comment on above: Performed By: #### L [id number] ####[facility] ([facility])[address] [place] [address] Hematocrit (Bld) [Volume fraction] 40.3 % Normal 39.0-50.0 [facility] Comment on above: Performed By: #### L [id number] ####[facility] ([facility])[address] [place] [address] Hemoglobin (Bld) [Mass/Vol] 12.7 g/dL Low 13.0-17.0 [facility] Comment on above: Performed By: #### L [id number] ####[facility] ([facility])[address] [place] [address] MCH (RBC) [Entitic mass] 30.2 pg Normal 27.0-33.0 [facility] Comment on above: Performed By: #### L [id number] ####[facility] ([facility])[address] [place] [address] MCV (RBC) [Entitic vol] 95.7 fL Normal 82.0-98.0 [facility] Comment on above: Performed By: #### L [id number] ####[facility] ([facility])[address] [place] [address] PLATELETS (10*3/UL) IN BLOOD AUTOMATED COUNT 162 10*3/uL Normal 150-400 [facility] Comment on above: Performed By: #### L [id number] ####[facility] ([facility])[address] [place] [address] RBC (Bld) [#/Vol] 4.21 10*6/uL Normal 4.20-5.70 [facility] Comment on above: Performed By: #### L [id number] ####[facility] ([facility])[address] [place] [address] WBC (Bld) [#/Vol] 4.37 10*3/uL Normal 4.00-10.60 [facility] Comment on above: Performed By: #### L [id number] ####[facility] ([facility])[address] [place] [address] DSon 03-16-2025 DS Normal [facility] MAGNESIUMon 03-16-2025 Magnesium [Mass/Vol] 2.4 mg/dL Normal 1.9-2.7 [facility] Comment on above: Performed By: #### L [id number] ####[facility] ([facility])[address] [place] [address] NURSNOTEon 03-16-2025 NURSNOTE Pt discharged with a ll belongings and AVS, via wheelchair Normal [facility] 30on 03-15-2025 30 Normal [facility] 30 Normal [facility] BASIC METABOLIC PANELon 02-16 Anion gap [Moles/Vol] 14 mmol/L Normal 7-20 [facility] Comment on above: Performed By: #### L [id number] ####[facility] ([facility])[address] [place] [address] Calcium [Mass/Vol] 9.1 mg/dL Normal 8.6-10.3 [facility] Comment on above: Performed By: #### L [id number] ####[facility] ([facility])[address] [place] [address] Chloride [Moles/Vol] 97 mmol/L Low 98-107 [facility] Comment on above: Performed By: #### L [id number] ####[facility] ([facility])[address] [place] [address] CO2 [Moles/Vol] 28 mmol/L Normal 21-31 [facility] Comment on above: Performed By: #### L [id number] ####[facility] ([facility])[address] [place] [address] Creatinine [Mass/Vol] 2.33 mg/dL High 0.70-1.30 [facility] Comment on above: Performed By: #### L [id number] ####[facility] ([facility])[address] [place] [address] GLOMERULAR FILTRATION RATE ML/MIN/1.73 SQ M.PREDICTED 27.1 mL/min/1.73m*2 Low >60.0 [facility] Comment on above: Result Comment: The [facility]???s estimated glomerular filtration rate (eGFR) will no [...] of individuals. Performed By: #### L [id number] ####[facility] ([facility])[address] [place] [address] Glucose [Mass/Vol] 86 mg/dL Normal 70-100 [facility] Comment on above: Performed By: #### L [id number] ####[facility] ([facility])[address] [place] [address] Potassium [Moles/Vol] 4.5 mmol/L Normal 3.5-5.1 [facility] Comment on above: Performed By: #### L [id number] ####[facility] ([facility])[address] [place] [address] Sodium [Moles/Vol] 134 mmol/L Low 136-145 [facility] Comment on above: Performed By: #### L [id number] ####[facility] ([facility])[address] [place] [address] Urea nitrogen [Mass/Vol] 68 mg/dL High 7-25 [facility] Comment on above: Performed By: #### L [id number] ####[facility] ([facility])[address] [place] [address] UREA NITROGEN/CREATININE (MASS RATIO) IN SER/PLAS 29.2 Normal [facility] Comment on above: Performed By: #### L [id number] ####[facility] ([facility])[address] [place] [address] CBCon 03-15-2025 Erythrocyte distribution width (RBC) [Ratio] 16.1 % High 11.5-15.0 [facility] Comment on above: Performed By: #### L [id number] ####[facility] ([facility])[address] [place] [address] ERYTHROCYTE MEAN CORPUSCULAR HEMOGLOBIN CONCENTRATION (G/DL) BY AUTOMATED 31.5 g/dL Low 32.0-35.0 [facility] Comment on above: Performed By: #### L [id number] ####[facility] ([facility])[address] [place] [address] Hematocrit (Bld) [Volume fraction] 43.5 % Normal 39.0-50.0 [facility] Comment on above: Performed By: #### L [id number] ####[facility] ([facility])[address] [place] [address] Hemoglobin (Bld) [Mass/Vol] 13.7 g/dL Normal 13.0-17.0 [facility] Comment on above: Performed By: #### L [id number] ####[facility] ([facility])[address] [place] [address] MCH (RBC) [Entitic mass] 29.8 pg Normal 27.0-33.0 [facility] Comment on above: Performed By: #### L [id number] ####[facility] ([facility])[address] [place] [address] MCV (RBC) [Entitic vol] 94.8 fL Normal 82.0-98.0 [facility] Comment on above: Performed By: #### L [id number] ####[facility] ([facility])[address] [place] [address] PLATELETS (10*3/UL) IN BLOOD AUTOMATED COUNT 147 10*3/uL Low 150-400 [facility] Comment on above: Performed By: #### L [id number] ####[facility] ([facility])[address] [place] [address] RBC (Bld) [#/Vol] 4.59 10*6/uL Normal 4.20-5.70 [facility] Comment on above: Performed By: #### L [id number] ####[facility] ([facility])[address] [place] [address] WBC (Bld) [#/Vol] 4.99 10*3/uL Normal 4.00-10.60 [facility] Comment on above: Performed By: #### L [id number] ####[facility] ([facility])[address] [place] [address] MAGNESIUMon 03-15-2025 Magnesium [Mass/Vol] 2.4 mg/dL Normal 1.9-2.7 [facility] Comment on above: Performed By: #### L [id number] ####[facility] ([facility])[address] [place] [address] 30on 03-14-2025 30 The patient is Moder ately Stable - Low risk of patient condition declining or worsening The patient's goals for the shift include Comfort The clinical goals for the shift include VSS, safety Normal [facility] 30 Normal [facility] BASIC METABOLIC PANELon 02-15 Anion gap [Moles/Vol] 11 mmol/L Normal 7-20 [facility] Comment on above: Performed By: #### L [id number] ####[facility] ([facility])[address] [place] [address] Calcium [Mass/Vol] 8.9 mg/dL Normal 8.6-10.3 [facility] Comment on above: Performed By: #### L [id number] ####[facility] ([facility])[address] [place] [address] Chloride [Moles/Vol] 96 mmol/L Low 98-107 [facility] Comment on above: Performed By: #### L [id number] ####[facility] ([facility])[address] [place] [address] CO2 [Moles/Vol] 31 mmol/L Normal 21-31 [facility] Comment on above: Performed By: #### L [id number] ####[facility] ([facility])[address] [place] [address] Creatinine [Mass/Vol] 2.31 mg/dL High 0.70-1.30 [facility] Comment on above: Performed By: #### L [id number] ####[facility] ([facility])[address] [place] [address] GLOMERULAR FILTRATION RATE ML/MIN/1.73 SQ M.PREDICTED 27.3 mL/min/1.73m*2 Low >60.0 [facility] Comment on above: Result Comment: The [facility]???s estimated glomerular filtration rate (eGFR) will no [...] of individuals. Performed By: #### L [id number] ####[facility] ([facility])[address] [place] [address] Glucose [Mass/Vol] 98 mg/dL Normal 70-100 [facility] Comment on above: Performed By: #### L [id number] ####[facility] ([facility])[address] [place] [address] Potassium [Moles/Vol] 4.0 mmol/L Normal 3.5-5.1 [facility] Comment on above: Performed By: #### L [id number] ####[facility] ([facility])[address] [place] [address] Sodium [Moles/Vol] 134 mmol/L Low 136-145 [facility] Comment on above: Performed By: #### L [id number] ####[facility] ([facility]ER)[address] [place] [address] Urea nitrogen [Mass/Vol] 73 mg/dL High 7-25 [facility] Comment on above: Performed By: #### L [id number] ####[facility] ([facility])[address] [place] [address] UREA NITROGEN/CREATININE (MASS RATIO) IN SER/PLAS 31.6 Normal [facility] Comment on above: Performed By: #### L [id number] ####[facility] ([facility])[address] [place] [address] CBCon 03-14-2025 Erythrocyte distribution width (RBC) [Ratio] 16.2 % High 11.5-15.0 [facility] Comment on above: Performed By: #### L [id number] ####[facility] ([facility])[address] [place] [address] ERYTHROCYTE MEAN CORPUSCULAR HEMOGLOBIN CONCENTRATION (G/DL) BY AUTOMATED 31.8 g/dL Low 32.0-35.0 [facility] Comment on above: Performed By: #### L [id number] ####[facility] ([facility])[address] [place] [address] Hematocrit (Bld) [Volume fraction] 40.0 % Normal 39.0-50.0 [facility] Comment on above: Performed By: #### L [id number] ####[facility] ([facility]ER)[address] [place] [address] Hemoglobin (Bld) [Mass/Vol] 12.7 g/dL Low 13.0-17.0 [facility] Comment on above: Performed By: #### L [id number] ####[facility] ([facility]ER)[address] [place] [address] MCH (RBC) [Entitic mass] 30.2 pg Normal 27.0-33.0 [facility] Comment on above: Performed By: #### L [id number] ####[facility] ([facility]ER)[address] [place] [address] MCV (RBC) [Entitic vol] 95.0 fL Normal 82.0-98.0 [facility] Comment on above: Performed By: #### L [id number] ####[facility] ([facility])[address] [place] [address] PLATELETS (10*3/UL) IN BLOOD AUTOMATED COUNT 158 10*3/uL Normal 150-400 [facility] Comment on above: Performed By: #### L [id number] ####[facility] ([facility])[address] [place] [address] RBC (Bld) [#/Vol] 4.21 10*6/uL Normal 4.20-5.70 [facility] Comment on above: Performed By: #### L [id number] ####[facility] ([facility])[address] [place] [address] WBC (Bld) [#/Vol] 4.48 10*3/uL Normal 4.00-10.60 [facility] Comment on above: Performed By: #### L [id number] ####[facility] ([facility])[address] [place] [address] MAGNESIUMon 03-14-2025 Magnesium [Mass/Vol] 2.4 mg/dL Normal 1.9-2.7 [facility] Comment on above: Performed By: #### L [id number] ####[facility] ([facility])[address] [place] [address] 30on 03-13-2025 30 The patient is Moder ately Stable - Low risk of patient condition declining or worsening The patient's goals for the shift include Comfort The clinical goals for the shift include VSS, safety Normal [facility] BASIC METABOLIC PANELon 02-15 Anion gap [Moles/Vol] 13 mmol/L Normal 7-20 [facility] Comment on above: Performed By: #### L [id number] ####[facility] ([facility])[address] [place] [address] Calcium [Mass/Vol] 8.8 mg/dL Normal 8.6-10.3 [facility] Comment on above: Performed By: #### L [id number] ####[facility] ([facility])[address] [place] [address] Chloride [Moles/Vol] 93 mmol/L Low 98-107 [facility] Comment on above: Performed By: #### L [id number] ####[facility] ([facility])[address] [place] [address] CO2 [Moles/Vol] 31 mmol/L Normal 21-31 [facility] Comment on above: Performed By: #### L [id number] ####[facility] ([facility])[address] [place] [address] Creatinine [Mass/Vol] 2.37 mg/dL High 0.70-1.30 [facility] Comment on above: Performed By: #### L [id number] ####[facility] ([facility])[address] [address] GLOMERULAR FILTRATION RATE ML/MIN/1.73 SQ M.PREDICTED 26.5 mL/min/1.73m*2 Low >60.0 [facility] Comment on above: Result Comment: The [facility]???s estimated glomerular filtration rate (eGFR) will no [...] of individuals. Performed By: #### L [id number] ####[facility] ([facility])[address] [place] [address] Glucose [Mass/Vol] 119 mg/dL High 70-100 [facility] Comment on above: Performed By: #### L [id number] ####[facility] ([facility])[address] [place] [address] Potassium [Moles/Vol] 4.1 mmol/L Normal 3.5-5.1 [facility] Comment on above: Performed By: #### L [id number] ####[facility] ([facility]ER)[address] [place] [address] Sodium [Moles/Vol] 133 mmol/L Low 136-145 [facility] Comment on above: Performed By: #### L [id number] ####[facility] ([facility]ER)[address] [place] [address] Urea nitrogen [Mass/Vol] 76 mg/dL High 7-25 [facility] Comment on above: Performed By: #### L [id number] ####[facility] ([facility])[address] [place] [address] UREA NITROGEN/CREATININE (MASS RATIO) IN SER/PLAS 32.1 Normal [facility] Comment on above: Performed By: #### L [id number] ####[facility] ([facility])[address] [place] [address] CBCon 03-13-2025 Erythrocyte distribution width (RBC) [Ratio] 16.1 % High 11.5-15.0 [facility] Comment on above: Performed By: #### L [id number] ####[facility] ([facility])[address] [place] [address] ERYTHROCYTE MEAN CORPUSCULAR HEMOGLOBIN CONCENTRATION (G/DL) BY AUTOMATED 31.9 g/dL Low 32.0-35.0 [facility] Comment on above: Performed By: #### L [id number] ####[facility] ([facility]ER)[address], [place] [address] Hematocrit (Bld) [Volume fraction] 40.7 % Normal 39.0-50.0 [facility] Comment on above: Performed By: #### L [id number] ####[facility] ([facility]ER)[address], [place] [address] Hemoglobin (Bld) [Mass/Vol] 13.0 g/dL Normal 13.0-17.0 [facility] Comment on above: Performed By: #### L [id number] ####[facility] ([facility])[address] [place] [address] MCH (RBC) [Entitic mass] 30.5 pg Normal 27.0-33.0 [facility] Comment on above: Performed By: #### L [id number] ####[facility] ([facility])[address] [place] [address] MCV (RBC) [Entitic vol] 95.5 fL Normal 82.0-98.0 [facility] Comment on above: Performed By: #### L [id number] ####[facility] ([facility])[address] [place] [address] PLATELETS (10*3/UL) IN BLOOD AUTOMATED COUNT 159 10*3/uL Normal 150-400 [facility] Comment on above: Performed By: #### L [id number] ####[facility] ([facility])[address] [place] [address] RBC (Bld) [#/Vol] 4.26 10*6/uL Normal 4.20-5.70 [facility] Comment on above: Performed By: #### L [id number] ####[facility] ([facility])[address] [place] [address] WBC (Bld) [#/Vol] 5.29 10*3/uL Normal 4.00-10.60 [facility] Comment on above: Performed By: #### L [id number] ####[facility] ([facility])[address] [place] [address] MAGNESIUMon 03-13-2025 Magnesium [Mass/Vol] 2.3 mg/dL Normal 1.9-2.7 [facility] Comment on above: Performed By: #### L [id number] ####[facility] ([facility] [place] [address] 30on 03-12-2025 30 Normal [facility] 30 The patient is Moder ately Stable - Low risk of patient condition declining or worsening The patient's goals for the shift include comfort and rest The clinical goals for the shift include vss Normal [facility] BASIC METABOLIC PANELon 06-2 Anion gap [Moles/Vol] 14 mmol/L Normal - [facility] Comment on above: Performed By: #### L [id number] ####[facility] ([facility])[address] [facility] [place] [address] Calcium [Mass/Vol] 8.7 mg/dL Normal 8.6-10.3 [facility] Comment on above: Performed By: #### L [id number] ####[facility] ([facility] [place] [address] Chloride [Moles/Vol] 93 mmol/L Low 98-107 [facility] Comment on above: Performed By: #### L [id number] ####[facility] ([facility])[address] [place] [address] CO2 [Moles/Vol] 31 mmol/L Normal 21- [facility] Comment on above: Performed By: #### L [id number] ####[facility] ([facility])[address] [place] [address] Creatinine [Mass/Vol] 2.33 mg/dL High 0.70-1.30 [facility] Comment on above: Performed By: #### L [id number] ####[facility] [facility] [address] GLOMERULAR FILTRATION RATE ML/MIN/1.73 SQ M.PREDICTED 27.1 mL/min/1.73m*2 Low >60.0 [facility] Comment on above: Result Comment: The [facility]???s estimated glomerular filtration rate (eGFR) will no [...] of individuals. Performed By: #### L [id number] ####[facility] ([facility])[address] [place] [address] Glucose [Mass/Vol] 93 mg/dL Normal 70-100 [facility] Comment on above: Performed By: #### L [id number] ####[facility] ([facility])[address] [facility] [address] Potassium [Moles/Vol] 3.9 mmol/L Normal 3.5-5.1 [facility] Comment on above: Performed By: #### L [id number] ####[facility] ([facility])[address] [facility] [place] [address] Sodium [Moles/Vol] 134 mmol/L Low 136-145 [facility] Comment on above: Performed By: #### L [id number] ####[facility] ([facility])[address] [place] [address] Urea nitrogen [Mass/Vol] 76 mg/dL High 7-25 [facility] Comment on above: Performed By: #### L [id number] ####[facility] ([facility])[address] [place] [address] UREA NITROGEN/CREATININE (MASS RATIO) IN SER/PLAS 32.6 Normal [facility] Comment on above: Performed By: #### L [id number] ####[facility] ([facility])[address] [place] [address] CBCon 03-12-2025 Erythrocyte distribution width (RBC) [Ratio] 16.3 % High 11.5-15.0 [facility] Comment on above: Performed By: #### L [id number] ####[facility] ([facility])[address] [place] [address] ERYTHROCYTE MEAN CORPUSCULAR HEMOGLOBIN CONCENTRATION (G/DL) BY AUTOMATED 32.1 g/dL Normal 32.0-35.0 [facility] Comment on above: Performed By: #### L [id number] ####[facility] ([facility])[address] [place] [address] Hematocrit (Bld) [Volume fraction] 39.0 % Normal 39.0-50.0 [facility] Comment on above: Performed By: #### L [id number] ####[facility] ([facility])[address] [place] [address] Hemoglobin (Bld) [Mass/Vol] 12.5 g/dL Low 13.0-17.0 [facility] Comment on above: Performed By: #### L [id number] ####[facility] ([facility])[address] [place], [place] [address] MCH (RBC) [Entitic mass] 30.3 pg Normal 27.0-33.0 [facility] Comment on above: Performed By: #### L [id number] ####[facility] ([facility])[address] [place] [address] MCV (RBC) [Entitic vol] 94.7 fL Normal 82.0-98.0 [facility] Comment on above: Performed By: #### L [id number] ####[facility] ([facility])[address] [place] [address] PLATELETS (10*3/UL) IN BLOOD AUTOMATED COUNT 163 10*3/uL Normal 150-400 [facility] Comment on above: Performed By: #### L [id number] ####[facility] ([facility])[address] [place] [address] RBC (Bld) [#/Vol] 4.12 10*6/uL Low 4.20-5.70 [facility] Comment on above: Performed By: #### L [id number] ####[facility] ([facility])[address] [place] [address] WBC (Bld) [#/Vol] 4.94 10*3/uL Normal 4.00-10.60 [facility] Comment on above: Performed By: #### L [id number] ####[facility] ([facility]ER)[address] [place] [address] MAGNESIUMon 03-12-2025 Magnesium [Mass/Vol] 2.2 mg/dL Normal 1.9-2.7 [facility] Comment on above: Performed By: #### L [id number] ####[facility] ([facility])[address] [place] [address] 30on 03-11-2025 30 Normal [facility] BASIC METABOLIC PANELon 02-15 Anion gap [Moles/Vol] 13 mmol/L Normal 7-20 [facility] Comment on above: Performed By: #### L [id number] ####[facility] ([facility])[address] [place] [address] Calcium [Mass/Vol] 8.7 mg/dL Normal 8.6-10.3 [facility] Comment on above: Performed By: #### L [id number] ####[facility] ([facility])[address] [place] [address] Chloride [Moles/Vol] 91 mmol/L Low 98-107 [facility] Comment on above: Performed By: #### L [id number] ####[facility] ([facility])[address] [place] [address] CO2 [Moles/Vol] 35 mmol/L High 21-31 [facility] Comment on above: Performed By: #### L [id number] ####[facility] ([facility])[address] [place] [address] Creatinine [Mass/Vol] 2.39 mg/dL High 0.70-1.30 [facility] Comment on above: Performed By: #### L [id number] ####[facility] ([facility])[address] [place] [address] GLOMERULAR FILTRATION RATE ML/MIN/1.73 SQ M.PREDICTED 26.2 mL/min/1.73m*2 Low >60.0 [facility] Comment on above: Result Comment: The [facility]???s estimated glomerular filtration rate (eGFR) will no [...] of individuals. Performed By: #### L [id number] ####[facility] ([facility])[address] [place] [address] Glucose [Mass/Vol] 86 mg/dL Normal 70-100 [facility] Comment on above: Performed By: #### L [id number] ####[facility] ([facility])[address] [place] [address] Potassium [Moles/Vol] 3.8 mmol/L Normal 3.5-5.1 [facility] Comment on above: Performed By: #### L [id number] ####[facility] ([facility])[address] [place] [address] Sodium [Moles/Vol] 135 mmol/L Low 136-145 [facility] Comment on above: Performed By: #### L [id number] ####[facility] ([facility])[address] [place] [address] Urea nitrogen [Mass/Vol] 78 mg/dL High 7-25 [facility] Comment on above: Performed By: #### L [id number] ####[facility] ([facility])[address] [place] [address] UREA NITROGEN/CREATININE (MASS RATIO) IN SER/PLAS 32.6 Normal [facility] Comment on above: Performed By: #### L [id number] ####[facility] ([facility])[address] [place] [address] CBCon 03-11-2025 Erythrocyte distribution width (RBC) [Ratio] 16.4 % High 11.5-15.0 [facility] Comment on above: Performed By: #### L [id number] ####[facility] ([facility])[address] [place] [address] ERYTHROCYTE MEAN CORPUSCULAR HEMOGLOBIN CONCENTRATION (G/DL) BY AUTOMATED 32.7 g/dL Normal 32.0-35.0 [facility] Comment on above: Performed By: #### L [id number] ####[facility] ([facility])[address] [place] [address] Hematocrit (Bld) [Volume fraction] 39.8 % Normal 39.0-50.0 [facility] Comment on above: Performed By: #### L [id number] ####[facility] ([facility])[address] [place] [address] Hemoglobin (Bld) [Mass/Vol] 13.0 g/dL Normal 13.0-17.0 [facility] Comment on above: Performed By: #### L [id number] ####[facility] ([facility])[address] [place] [address] MCH (RBC) [Entitic mass] 30.9 pg Normal 27.0-33.0 [facility] Comment on above: Performed By: #### L [id number] ####[facility] ([facility])[address] [place], [place] [address] MCV (RBC) [Entitic vol] 94.5 fL Normal 82.0-98.0 [facility] Comment on above: Performed By: #### L [id number] ####[facility] ([facility])[address] [place] [address] PLATELETS (10*3/UL) IN BLOOD AUTOMATED COUNT 160 10*3/uL Normal 150-400 [facility] Comment on above: Performed By: #### L [id number] ####[facility] ([facility])[address] [place] [address] RBC (Bld) [#/Vol] 4.21 10*6/uL Normal 4.20-5.70 [facility] Comment on above: Performed By: #### L [id number] ####[facility] ([facility])[address] [place] [address] WBC (Bld) [#/Vol] 5.54 10*3/uL Normal 4.00-10.60 [facility] Comment on above: Performed By: #### L [id number] ####[facility] ([facility])[address] [place] [address] MAGNESIUMon 03-11-2025 Magnesium [Mass/Vol] 2.1 mg/dL Normal 1.9-2.7 [facility] Comment on above: Performed By: #### L [id number] ####[facility] ([facility])[address] [place] [address] 30on 03-10-2025 30 Normal [facility] 30 Normal [facility] BASIC METABOLIC PANELon 02-15 Anion gap [Moles/Vol] 13 mmol/L Normal 7-20 [facility] Comment on above: Performed By: #### L [id number] ####[facility] ([facility])[address] [place] [address] Calcium [Mass/Vol] 8.8 mg/dL Normal 8.6-10.3 [facility] Comment on above: Performed By: #### L [id number] ####[facility] ([facility])[address] [place] [address] Chloride [Moles/Vol] 90 mmol/L Low 98-107 [facility] Comment on above: Performed By: #### L [id number] ####[facility] ([facility])[address] [place] [address] CO2 [Moles/Vol] 35 mmol/L High 21-31 [facility] Comment on above: Performed By: #### L [id number] ####[facility] ([facility])[address] [place] [address] Creatinine [Mass/Vol] 2.50 mg/dL High 0.70-1.30 [facility] Comment on above: Performed By: #### L [id number] ####[facility] ([facility])[address] [facility] [place] [address] GLOMERULAR FILTRATION RATE ML/MIN/1.73 SQ M.PREDICTED 24.9 mL/min/1.73m*2 Low >60.0 [facility] Comment on above: Result Comment: The [facility]???s estimated glomerular filtration rate (eGFR) will no [...] of individuals. Performed By: #### L [id number] ####[facility] ([facility])[address] [place] [address] Glucose [Mass/Vol] 79 mg/dL Normal 70-100 [facility] Comment on above: Performed By: #### L [id number] ####[facility] ([facility])[address] [place] [address] Potassium [Moles/Vol] 3.8 mmol/L Normal 3.5-5.1 [facility] Comment on above: Performed By: #### L [id number] ####[facility] ([facility])[address] [place] [address] Sodium [Moles/Vol] 134 mmol/L Low 136-145 [facility] Comment on above: Performed By: #### L [id number] ####[facility] ([facility])[address] [address] Urea nitrogen [Mass/Vol] 77 mg/dL High 7-25 [facility] Comment on above: Performed By: #### L [id number] ####[facility] ([facility])[address] [place] [address] UREA NITROGEN/CREATININE (MASS RATIO) IN SER/PLAS 30.8 Normal [facility] Comment on above: Performed By: #### L [id number] ####[facility] ([facility])[address] [place] [address] CBCon 03-10-2025 Erythrocyte distribution width (RBC) [Ratio] 16.3 % High 11.5-15.0 [facility] Comment on above: Performed By: #### L [id number] ####[facility] ([facility])[address] [place] [address] ERYTHROCYTE MEAN CORPUSCULAR HEMOGLOBIN CONCENTRATION (G/DL) BY AUTOMATED 33.0 g/dL Normal 32.0-35.0 [facility] Comment on above: Performed By: #### L [id number] ####[facility] ([facility])[address] [place] [address] Hematocrit (Bld) [Volume fraction] 38.5 % Low 39.0-50.0 [facility] Comment on above: Performed By: #### L [id number] ####[facility] ([facility])[address] [place] [address] Hemoglobin (Bld) [Mass/Vol] 12.7 g/dL Low 13.0-17.0 [facility] Comment on above: Performed By: #### L [id number] ####[facility] ([facility])[address] [place] [address] MCH (RBC) [Entitic mass] 31.0 pg Normal 27.0-33.0 [facility] Comment on above: Performed By: #### L [id number] ####[facility] ([facility])[address] [place] [address] MCV (RBC) [Entitic vol] 93.9 fL Normal 82.0-98.0 [facility] Comment on above: Performed By: #### L [id number] ####[facility] ([facility])[address] [place] [address] PLATELETS (10*3/UL) IN BLOOD AUTOMATED COUNT 161 10*3/uL Normal 150-400 [facility] Comment on above: Performed By: #### L [id number] ####[facility] ([facility])[address] [place] [address] RBC (Bld) [#/Vol] 4.10 10*6/uL Low 4.20-5.70 [facility] Comment on above: Performed By: #### L [id number] ####[facility] ([facility]ER)[address] [place] [address] WBC (Bld) [#/Vol] 5.65 10*3/uL Normal 4.00-10.60 [facility] Comment on above: Performed By: #### L [id number] ####[facility] ([facility])[address] [place] [address] MAGNESIUMon 03-10-2025 Magnesium [Mass/Vol] 2.1 mg/dL Normal 1.9-2.7 [facility] Comment on above: Performed By: #### L [id number] ####[facility] ([facility])[address] [place] [address] 30on 03-09-2025 30 Normal [facility] 30 Normal [facility] 30 Normal [facility] 30 Normal [facility] BASIC METABOLIC PANELon 02-15 Anion gap [Moles/Vol] 13 mmol/L Normal 7-20 [facility] Comment on above: Performed By: #### L [id number] ####[facility] ([facility]ER)[address] [place] [address] Calcium [Mass/Vol] 9.0 mg/dL Normal 8.6-10.3 [facility] Comment on above: Performed By: #### L [id number] ####[facility] ([facility]ER)[address] [place] [address] Chloride [Moles/Vol] 91 mmol/L Low 98-107 [facility] Comment on above: Performed By: #### L [id number] ####[facility] ([facility]ER)[address] [place] [address] CO2 [Moles/Vol] 37 mmol/L High 21-31 [facility] Comment on above: Performed By: #### L [id number] ####[facility] ([facility])[address] [place] [address] Creatinine [Mass/Vol] 2.63 mg/dL High 0.70-1.30 [facility] Comment on above: Performed By: #### L [id number] ####[facility] ([facility])[address] [place] [address] GLOMERULAR FILTRATION RATE ML/MIN/1.73 SQ M.PREDICTED 23.4 mL/min/1.73m*2 Low >60.0 [facility] Comment on above: Result Comment: The [facility]???s estimated glomerular filtration rate (eGFR) will no [...] of individuals. Performed By: #### L [id number] ####[facility] ([facility])[address] [place] [address] Glucose [Mass/Vol] 93 mg/dL Normal 70-100 [facility] Comment on above: Performed By: #### L [id number] ####[facility] ([facility])[address] [place] [address] Potassium [Moles/Vol] 3.9 mmol/L Normal 3.5-5.1 [facility] Comment on above: Performed By: #### L [id number] ####[facility] ([facility])[address] [place] [address] Sodium [Moles/Vol] 137 mmol/L Normal 136-145 [facility] Comment on above: Performed By: #### L [id number] ####[facility] ([facility])[address] [place] [address] Urea nitrogen [Mass/Vol] 77 mg/dL High 7-25 [facility] Comment on above: Performed By: #### L [id number] ####[facility] ([facility])[address] [place] [address] UREA NITROGEN/CREATININE (MASS RATIO) IN SER/PLAS 29.3 Normal [facility] Comment on above: Performed By: #### L [id number] ####[facility] ([facility])[address] [place] [address] ELECTROLYTE PANELon 03-09-20 25 Anion gap [Moles/Vol] 12 mmol/L Normal 7-20 [facility] Comment on above: Order Comment: Until pt is on Bumex drip Performed By: #### L [id number] ####[facility] ([facility])[address] [place] [address] Chloride [Moles/Vol] 90 mmol/L Low 98-107 [facility] Comment on above: Order Comment: Until pt is on Bumex drip Performed By: #### L [id number] ####[facility] ([facility]ER)[address] [place] [address] CO2 [Moles/Vol] 38 mmol/L High 21-31 [facility] Comment on above: Order Comment: Until pt is on Bumex drip Performed By: #### L [id number] ####[facility] ([facility]ER)[address] [place] [address] Potassium [Moles/Vol] 3.7 mmol/L Normal 3.5-5.1 [facility] Comment on above: Order Comment: Until pt is on Bumex drip Performed By: #### L [id number] ####[facility] ([facility]ER)[address] [place] [address] Sodium [Moles/Vol] 136 mmol/L Normal 136-145 [facility] Comment on above: Order Comment: Until pt is on Bumex drip Performed By: #### L [id number] ####[facility] ([facility]ER)[address] [place] [address] HEPATIC FUNCTION PANELon Albumin [Mass/Vol] 3.2 g/dL Low 3.5-5.7 [facility] Comment on above: Performed By: #### L [id number] ####[facility] ([facility])[address] [place] [address] ALP [Catalytic activity/Vol] 129 U/L High 34-104 [facility] Comment on above: Performed By: #### L [id number] ####[facility] ([facility])[address] [place] [address] ALT [Catalytic activity/Vol] 14 U/L Normal 7-52 [facility] Comment on above: Performed By: #### L [id number] ####[facility] ([facility])[address] [place] [address] AST [Catalytic activity/Vol] 29 U/L Normal 13-39 [facility] Comment on above: Performed By: #### L [id number] ####[facility] ([facility])[address] [place] [address] Bilirubin [Mass/Vol] 1.4 mg/dL High 0.3-1.0 [facility] Comment on above: Performed By: #### L [id number] ####[facility] ([facility])[address] [place] [address] Magnesium [Mass/Vol] 0.6 mg/dL High 0-0.2 [facility] Comment on above: Performed By: #### L [id number] ####[facility] ([facility])[address] [place] [address] Protein [Mass/Vol] 6.4 g/dL Normal 6.0-8.3 [facility] Comment on above: Performed By: #### L [id number] ####[facility] ([facility])[address] [place] [address] MAGNESIUMon 03-09-2025 Magnesium [Mass/Vol] 2.0 mg/dL Normal 1.9-2.7 [facility] Comment on above: Performed By: #### L [id number] ####[facility] ([facility])[address] [place] [address] 30on 03-08-2025 30 Normal [facility] 30 Normal [facility] BASIC METABOLIC PANELon 02-15 Anion gap [Moles/Vol] 12 mmol/L Normal 7-20 [facility] Comment on above: Performed By: #### L [id number] ####[facility] ([facility]ER)[address] [place] [address] Calcium [Mass/Vol] 8.9 mg/dL Normal 8.6-10.3 [facility] Comment on above: Performed By: #### L [id number] ####[facility] ([facility]ER)[address] [place] [address] Chloride [Moles/Vol] 96 mmol/L Low 98-107 [facility] Comment on above: Performed By: #### L [id number] ####[facility] ([facility]ER)[address] [place] [address] CO2 [Moles/Vol] 34 mmol/L High 21-31 [facility] Comment on above: Performed By: #### L [id number] ####[facility] ([facility]ER)[address] [place] [address] Creatinine [Mass/Vol] 2.73 mg/dL High 0.70-1.30 [facility] Comment on above: Performed By: #### L [id number] ####[facility] ([facility]ER)[address] [place] [address] GLOMERULAR FILTRATION RATE ML/MIN/1.73 SQ M.PREDICTED 22.4 mL/min/1.73m*2 Low >60.0 [facility] Comment on above: Result Comment: The [facility]???s estimated glomerular filtration rate (eGFR) will no [...] of individuals. Performed By: #### L [id number] ####[facility] ([facility])[address] [place] [address] Glucose [Mass/Vol] 98 mg/dL Normal 70-100 [facility] Comment on above: Performed By: #### L [id number] ####[facility] ([facility])[address] [place] [address] Potassium [Moles/Vol] 4.4 mmol/L Normal 3.5-5.1 [facility] Comment on above: Performed By: #### L [id number] ####[facility] ([facility])[address] [place] [address] Sodium [Moles/Vol] 138 mmol/L Normal 136-145 [facility] Comment on above: Performed By: #### L [id number] ####[facility] ([facility])[address] [place] [address] Urea nitrogen [Mass/Vol] 78 mg/dL High 7-25 [facility] Comment on above: Performed By: #### L [id number] ####[facility] ([facility])[address] [place] [address] UREA NITROGEN/CREATININE (MASS RATIO) IN SER/PLAS 28.6 Normal [facility] Comment on above: Performed By: #### L [id number] ####[facility] ([facility])[address] [place] [address] CNCOon 03-08-2025 CNCO Letter Text Normal [facility] CONSULTon 03-08-2025 CONSULT Normal [facility] CONSULT Normal [facility] ELECTROLYTE PANELon 03-08-20 25 Anion gap [Moles/Vol] 15 mmol/L Normal 7-20 [facility] Comment on above: Order Comment: Until pt is on Bumex drip Performed By: #### L [id number] ####[facility] ([facility])[address] [place] [address] Chloride [Moles/Vol] 90 mmol/L Low 98-107 [facility] Comment on above: Order Comment: Until pt is on Bumex drip Performed By: #### L [id number] ####[facility] ([facility]ER)[address] [place] [address] CO2 [Moles/Vol] 36 mmol/L High 21-31 [facility] Comment on above: Order Comment: Until pt is on Bumex drip Performed By: #### L [id number] ####[facility] ([facility])[address] [place] [address] Potassium [Moles/Vol] 3.9 mmol/L Normal 3.5-5.1 [facility] Comment on above: Order Comment: Until pt is on Bumex drip Performed By: #### L [id number] ####[facility] ([facility])[address] [place] [address] Sodium [Moles/Vol] 137 mmol/L Normal 136-145 [facility] Comment on above: Order Comment: Until pt is on Bumex drip Performed By: #### L [id number] ####[facility] ([facility])[address] [place] [address] Anion gap [Moles/Vol] 12 mmol/L Normal 7-20 [facility] Comment on above: Order Comment: Until pt is on Bumex drip Performed By: #### L [id number] ####[facility] ([facility]ER)[address] [place] [address] Chloride [Moles/Vol] 93 mmol/L Low 98-107 [facility] Comment on above: Order Comment: Until pt is on Bumex drip Performed By: #### L [id number] ####[facility] ([facility])[address] [place] [address] CO2 [Moles/Vol] 36 mmol/L High 21-31 [facility] Comment on above: Order Comment: Until pt is on Bumex drip Performed By: #### L [id number] ####[facility] [place] [address] Potassium [Moles/Vol] 4.3 mmol/L Normal 3.5-5.1 [facility] Comment on above: Order Comment: Until pt is on Bumex drip Performed By: #### L [id number] ####[facility] ([facility])[address] [place] [address] Sodium [Moles/Vol] 137 mmol/L Normal 136-145 [facility] Comment on above: Order Comment: Until pt is on Bumex drip Performed By: #### L [id number] ####[facility] ([facility])[address] [place] [address] MAGNESIUMon 03-08-2025 Magnesium [Mass/Vol] 2.3 mg/dL Normal 1.9-2.7 [facility] Comment on above: Performed By: #### L [id number] ####[facility] ([facility])[address] [place] [address] NURSNOTEon 03-08-2025 NURSNOTE Patient refusing tur ns throughout shift. Licensing Director educated patient on the importance of turning to prevent skin breakdown, but patient still refused stating, I'm comfortable. Normal [facility] URIC ACIDon 03-08-2025 Magnesium [Mass/Vol] 8.8 mg/dL High 4.4-7.6 [facility] Comment on above: Performed By: #### L [id number] ####[facility] ([facility])[address] [place] [address] 30on 03-07-2025 30 Normal [facility] BLOOD CULTUREon 03-07-2025 Bacteria identified Cx Nom (Bld) No growth at 5 days Normal [facility] Comment on above: Order Comment: From a different site than #1. Performed By: #### L [id number] ####[facility] ([facility])[address] [place] [address] Bacteria identified Cx Nom (Bld) No growth at 5 days Normal [facility] Comment on above: Performed By: #### L [id number] ####[facility] ([facility])[address] [place] [address] CBCon 03-07-2025 Erythrocyte distribution width (RBC) [Ratio] 17.2 % High 11.5-15.0 [facility] Comment on above: Performed By: #### L [id number] ####[facility] ([facility])[address] [place] [place] [address] ERYTHROCYTE MEAN CORPUSCULAR HEMOGLOBIN CONCENTRATION (G/DL) BY AUTOMATED 31.8 g/dL Low 32.0-35.0 [facility] Comment on above: Performed By: #### L [id number] ####[facility] ([facility])[address] [place] [address] Hematocrit (Bld) [Volume fraction] 38.1 % Low 39.0-50.0 [facility] Comment on above: Performed By: #### L [id number] ####[facility] ([facility])[address] [place] [address] Hemoglobin (Bld) [Mass/Vol] 12.1 g/dL Low 13.0-17.0 [facility] Comment on above: Performed By: #### L [id number] ####[facility] ([facility])[address] [place] [address] MCH (RBC) [Entitic mass] 30.1 pg Normal 27.0-33.0 [facility] Comment on above: Performed By: #### L [id number] ####[facility] (BE[facility])[address] [place] [address] MCV (RBC) [Entitic vol] 94.8 fL Normal 82.0-98.0 [facility] Comment on above: Performed By: #### L [id number] ####[facility] ([facility])[address] [place] [address] PLATELETS (10*3/UL) IN BLOOD AUTOMATED COUNT 150 10*3/uL Normal 150-400 [facility] Comment on above: Performed By: #### L [id number] ####[facility] ([facility])[address] [place] [address] RBC (Bld) [#/Vol] 4.02 10*6/uL Low 4.20-5.70 [facility] Comment on above: Performed By: #### L [id number] ####[facility] ([facility])[address] [place] [address] WBC (Bld) [#/Vol] 8.68 10*3/uL Normal 4.00-10.60 [facility] Comment on above: Performed By: #### L [id number] ####[facility] ([facility])[address] [place] [address] COMPREHENSIVE METABOLIC PANE Aldo 03-07-2025 Albumin [Mass/Vol] 3.0 g/dL Low 3.5-5.7 [facility] Comment on above: Performed By: #### L [id number] ####[facility] ([facility])[address] [place] [address] ALP [Catalytic activity/Vol] 102 U/L Normal 34-104 [facility] Comment on above: Performed By: #### L [id number] ####[facility] ([facility])[address] [place] [address] ALT [Catalytic activity/Vol] 13 U/L Normal 7-52 [facility] Comment on above: Performed By: #### L [id number] ####[facility] ([facility])[address] [place] [address] Anion gap [Moles/Vol] 15 mmol/L Normal 7-20 [facility] Comment on above: Performed By: #### L [id number] ####[facility] ([facility])[address] [place] [address] AST [Catalytic activity/Vol] 24 U/L Normal 13-39 [facility] Comment on above: Performed By: #### L [id number] ####[facility] (BE[facility]ER)[address] [place] [address] Bilirubin [Mass/Vol] 1.3 mg/dL High 0.3-1.0 [facility] Comment on above: Performed By: #### L [id number] ####[facility] ([facility])[address] [place] [address] Calcium [Mass/Vol] 8.6 mg/dL Normal 8.6-10.3 [facility] Comment on above: Performed By: #### L [id number] ####[facility] ([facility])[address] [place] [address] Chloride [Moles/Vol] 96 mmol/L Low 98-107 [facility] Comment on above: Performed By: #### L [id number] ####[facility] ([facility])[address] [place] [address] CO2 [Moles/Vol] 30 mmol/L Normal 21-31 [facility] Comment on above: Performed By: #### L [id number] ####[facility] ([facility])[address] [place] [address] Creatinine [Mass/Vol] 3.18 mg/dL High 0.70-1.30 [facility] Comment on above: Performed By: #### L [id number] ####[facility] ([facility])[address] [place] [address] GLOMERULAR FILTRATION RATE ML/MIN/1.73 SQ M.PREDICTED 18.6 mL/min/1.73m*2 Low >60.0 [facility] Comment on above: Result Comment: The [facility]???s estimated glomerular filtration rate (eGFR) will no [...] of individuals. Performed By: #### L [id number] ####[facility] ([facility])[address] [place] [address] Glucose [Mass/Vol] 92 mg/dL Normal 70-100 [facility] Comment on above: Performed By: #### L [id number] ####[facility] ([facility])[address] [place] [address] Potassium [Moles/Vol] 3.0 mmol/L Low 3.5-5.1 [facility] Comment on above: Performed By: #### L [id number] ####[facility] ([facility])[address] [place] [address] Protein [Mass/Vol] 6.2 g/dL Normal 6.0-8.3 [facility] Comment on above: Performed By: #### L [id number] ####[facility] ([facility])[address] [place] [address] Sodium [Moles/Vol] 138 mmol/L Normal 136-145 [facility] Comment on above: Performed By: #### L [id number] ####[facility] ([facility])[address] [place] [address] Urea nitrogen [Mass/Vol] 86 mg/dL High 7-25 [facility] Comment on above: Performed By: #### L [id number] ####[facility] ([facility])[address] [place] [address] UREA NITROGEN/CREATININE (MASS RATIO) IN SER/PLAS 27.0 Normal [facility] Comment on above: Performed By: #### L [id number] ####[facility] ([facility])[address] [place] [address] CONSULTon 03-07-2025 CONSULT Normal [facility] ELECTROLYTE PANELon 03-07-20 25 Anion gap [Moles/Vol] 12 mmol/L Normal 7-20 [facility] Comment on above: Order Comment: Until pt is on Bumex drip Performed By: #### L [id number] ####[facility] ([facility])[address] [place] [address] Chloride [Moles/Vol] 94 mmol/L Low 98-107 [facility] Comment on above: Order Comment: Until pt is on Bumex drip Performed By: #### L [id number] ####[facility] ([facility])[address] [place] [address] CO2 [Moles/Vol] 34 mmol/L High 21-31 [facility] Comment on above: Order Comment: Until pt is on Bumex drip Performed By: #### L [id number] ####[facility] ([facility])[address] [place] [address] Potassium [Moles/Vol] 4.3 mmol/L Normal 3.5-5.1 [facility] Comment on above: Order Comment: Until pt is on Bumex drip Performed By: #### L [id number] ####[facility] ([facility])[address] [place] [address] Sodium [Moles/Vol] 136 mmol/L Normal 136-145 [facility] Comment on above: Order Comment: Until pt is on Bumex drip Performed By: #### L [id number] ####[facility] ([facility])[address] [place] [address] Anion gap [Moles/Vol] 14 mmol/L Normal 7-20 [facility] Comment on above: Order Comment: Until pt is on Bumex drip Performed By: #### L [id number] ####[facility] ([facility])[address] [place] [address] Chloride [Moles/Vol] 94 mmol/L Low 98-107 [facility] Comment on above: Order Comment: Until pt is on Bumex drip Performed By: #### L [id number] ####[facility] ([facility])[address] [place] [address] CO2 [Moles/Vol] 31 mmol/L Normal 21-31 [facility] Comment on above: Order Comment: Until pt is on Bumex drip Performed By: #### L [id number] ####[facility] ([facility])[address] [place] [address] Potassium [Moles/Vol] 4.0 mmol/L Normal 3.5-5.1 [facility] Comment on above: Order Comment: Until pt is on Bumex drip Performed By: #### L [id number] ####[facility] ([facility])[address] [place] [address] Sodium [Moles/Vol] 135 mmol/L Low 136-145 [facility] Comment on above: Order Comment: Until pt is on Bumex drip Performed By: #### L [id number] ####[facility] ([facility])[address] [place] [address] Anion gap [Moles/Vol] 15 mmol/L Normal 7-20 [facility] Comment on above: Order Comment: Until pt is on Bumex drip Performed By: #### L [id number] ####[facility] ([facility])[address] [place] [address] Chloride [Moles/Vol] 93 mmol/L Low 98-107 [facility] Comment on above: Order Comment: Until pt is on Bumex drip Performed By: #### L [id number] ####[facility] ([facility])[address] [place] [address] CO2 [Moles/Vol] 33 mmol/L High 21-31 [facility] Comment on above: Order Comment: Until pt is on Bumex drip Performed By: #### L [id number] ####[facility] ([facility])[address] [place] [address] Potassium [Moles/Vol] 2.9 mmol/L Invalid Interpretation Code 3.5-5.1 [facility] Comment on above: Order Comment: Until pt is on Bumex drip Performed By: #### L [id number] ####[facility] ([facility])[address] [place] [address] Sodium [Moles/Vol] 138 mmol/L Normal 136-145 [facility] Comment on above: Order Comment: Until pt is on Bumex drip Performed By: #### L [id number] ####[facility] ([facility])[address] [place] [address] Anion gap [Moles/Vol] 15 mmol/L Normal 7-20 [facility] Comment on above: Order Comment: Until pt is on Bumex drip Performed By: #### L [id number] ####[facility] ([facility])[address] [place] [address] Chloride [Moles/Vol] 97 mmol/L Low 98-107 [facility] Comment on above: Order Comment: Until pt is on Bumex drip Performed By: #### L [id number] ####[facility] ([facility])[address] [place] [address] CO2 [Moles/Vol] 30 mmol/L Normal 21-31 [facility] Comment on above: Order Comment: Until pt is on Bumex drip Performed By: #### L [id number] ####[facility] ([facility])[address] [place] [address] Potassium [Moles/Vol] 3.3 mmol/L Low 3.5-5.1 [facility] Comment on above: Order Comment: Until pt is on Bumex drip Performed By: #### L [id number] ####[facility] ([facility])[address] [place] [address] Sodium [Moles/Vol] 139 mmol/L Normal 136-145 [facility] Comment on above: Order Comment: Until pt is on Bumex drip Performed By: #### L [id number] ####[facility] ([facility])[address] [place] [address] GLUCOSE 6 PHOSPHATE DEHYDROG ENASEon 03-07-2025 [id number] DEHYDROGENASE 13.6 U/g Hb Normal 9.9-16.6 [facility] Comment on above: Result Comment: Perf ormed By: [id number] [place] [id number] Director: Leonardo Bustillo MD, PhDCLIA Number: [id number] Performed By: #### L [id number] ####[email or web address] ([facility])[address] [place] [address] HIGH SENSITIVITY TROPONIN Io n 03-07-2025 HS TROPONIN I (NG/L) 429 ng/L Critically high <20 [facility] Comment on above: Performed By: #### L [id number] ####[facility] ([facility])[address] [place] [address] MAGNESIUMon 03-07-2025 Magnesium [Mass/Vol] 2.5 mg/dL Normal 1.9-2.7 [facility] Comment on above: Performed By: #### L [id number] ####[facility] ([facility])[address] [facility] [place] [address] POCT GLUCOSE METER UNSOLICIT ED RESULTSon 03-07-2025 Glucose [Mass/Vol] 103 mg/dL Normal 70-105 [facility] Comment on above: Order Comment: Waive d Testing in the ED is performed under the ED CLIA certificate #[id number]. Result Comment: [email or web address] Performed By: #### L [id number] ####[facility] ([facility])[address] [facility] [place] [address] Glucose [Mass/Vol] 97 mg/dL Normal 70-105 [facility] Comment on above: Order Comment: Waive d Testing in the ED is performed under the ED CLIA certificate #[id number]. Result Comment: [email or web address] Performed By: #### L [id number] ####[facility] ([facility])[address] [facility] [place] [address] URIC ACIDon 03-07-2025 Magnesium [Mass/Vol] 15.3 mg/dL High 4.4-7.6 [facility] Comment on above: Performed By: #### L [id number] ####[facility] ([facility])[address] [place] [address] 30on 06-21-2025 30 Normal [facility] BASIC METABOLIC PANELon 06-2 -2024 Anion gap [Moles/Vol] 21 mmol/L High 7-20 [facility] Comment on above: Performed By: #### L [id number] ####[facility] (BE[facility]ER)[address] [place] [address] Calcium [Mass/Vol] 8.9 mg/dL Normal 8.6-10.3 [facility] Comment on above: Performed By: #### L [id number] ####[facility] ([facility]ER)[address] [place] [address] Chloride [Moles/Vol] 100 mmol/L Normal 98-107 [facility] Comment on above: Performed By: #### L [id number] ####[facility] ([facility]ER)[address] [place] [address] CO2 [Moles/Vol] 22 mmol/L Normal 21-31 [facility] Comment on above: Performed By: #### L [id number] ####[facility] ([facility]ER)[address] [place] [address] Creatinine [Mass/Vol] 3.26 mg/dL High 0.70-1.30 [facility] Comment on above: Performed By: #### L [id number] ####[facility] ([facility]ER)[address] [place] [address] GLOMERULAR FILTRATION RATE ML/MIN/1.73 SQ M.PREDICTED 18.1 mL/min/1.73m*2 Low >60.0 [facility] Comment on above: Result Comment: The [facility]???s estimated glomerular filtration rate (eGFR) will no [...] of individuals. Performed By: #### L [id number] ####[facility] (BE[facility]ER)[address] [place] [address] Glucose [Mass/Vol] 69 mg/dL Low 70-100 [facility] Comment on above: Performed By: #### L [id number] ####[facility] ([facility]ER)[address] [place] [address] Potassium [Moles/Vol] 3.5 mmol/L Normal 3.5-5.1 [facility] Comment on above: Performed By: #### L [id number] ####[facility] (BEAKER)[address] [place] [address] Sodium [Moles/Vol] 139 mmol/L Normal 136-145 [facility] Comment on above: Performed By: #### L [id number] ####[facility] ([facility])[address] [place] [address] Urea nitrogen [Mass/Vol] 80 mg/dL High 7-25 [facility] Comment on above: Performed By: #### L [id number] ####[facility] ([facility])[address] [place] [address] UREA NITROGEN/CREATININE (MASS RATIO) IN SER/PLAS 24.5 Normal [facility] Comment on above: Performed By: #### L [id number] ####[facility] (BEAKER)[address] [place] [address] CBCon 03-06-2025 Erythrocyte distribution width (RBC) [Ratio] 17.4 % High 11.5-15.0 [facility] Comment on above: Performed By: #### L [id number] ####[facility] ([facility])[address] [place] [address] ERYTHROCYTE MEAN CORPUSCULAR HEMOGLOBIN CONCENTRATION (G/DL) BY AUTOMATED 32.3 g/dL Normal 32.0-35.0 [facility] Comment on above: Performed By: #### L [id number] ####[facility] (BEAKER)[address] [place] [address] Hematocrit (Bld) [Volume fraction] 40.0 % Normal 39.0-50.0 [facility] Comment on above: Performed By: #### L [id number] ####[facility] ([facility])[address] [place] [address] Hemoglobin (Bld) [Mass/Vol] 12.9 g/dL Low 13.0-17.0 [facility] Comment on above: Performed By: #### L [id number] ####[facility] ([facility])[address] [place] [address] MCH (RBC) [Entitic mass] 31.0 pg Normal 27.0-33.0 [facility] Comment on above: Performed By: #### L [id number] ####[facility] ([facility])[address] [place] [address] MCV (RBC) [Entitic vol] 96.2 fL Normal 82.0-98.0 [facility] Comment on above: Performed By: #### L [id number] ####[facility] ([facility])[address] [place] [address] PLATELETS (10*3/UL) IN BLOOD AUTOMATED COUNT 151 10*3/uL Normal 150-400 [facility] Comment on above: Performed By: #### L [id number] ####[facility] ([facility])[address] [place] [address] RBC (Bld) [#/Vol] 4.16 10*6/uL Low 4.20-5.70 [facility] Comment on above: Performed By: #### L [id number] ####[facility] (BEAKER)[address] [place] [address] WBC (Bld) [#/Vol] 10.86 10*3/uL High 4.00-10.60 [facility] Comment on above: Performed By: #### L [id number] ####[facility] (BEAKER)[address] [place] [address] CONSULTon 03-06-2025 CONSULT Normal [facility] CONSULT Normal [facility] CONSULT Normal [facility] CONSULT Normal [facility] FERRITINon 03-06-2025 FERRITIN (NG/ML) IN SER/PLAS 141.0 ng/mL Normal 24.0-336.0 [facility] Comment on above: Performed By: #### L [id number] ####[facility] ([facility])[address] [facility] [place] [address] HIGH SENSITIVITY TROPONIN Io n 03-06-2025 HS TROPONIN I (NG/L) 401 ng/L Critically high <20 [facility] Comment on above: Performed By: #### L [id number] ####[facility] ([facility])[address] [place] [address] IRON AND TIBCon 03-06-2025 IRON (UG/DL) IN SER/PLAS 19 ug/dL Low 50-212 [facility] Comment on above: Performed By: #### L [id number] ####[facility] ([facility])[address] [place] [address] IRON BINDING CAPACITY (UG/DL) IN SER/PLAS 218 ug/dL Low 250-450 [facility] Comment on above: Performed By: #### L [id number] ####[facility] ([facility])[address] [place] [address] IRON BINDING CAPACITY.UNSATURATE D (UG/DL) IN SER/PLAS 199.0 ug/dL Normal 155.0-355.0 [facility] Comment on above: Performed By: #### L [id number] ####[facility] ([facility] [place] [address] IRON SATURATION (%) IN SER/PLAS 9 % Low 20-50 [facility] Comment on above: Performed By: #### L [id number] ####[facility] ([facility] [place] [address] POCT GLUCOSE METER UNSOLICIT ED RESULTSon 03-06-2025 Glucose [Mass/Vol] 85 mg/dL Normal 70-105 [facility] Comment on above: Order Comment: Waive d Testing in the ED is performed under the ED CLIA certificate #[id number]. Result Comment: [email or web address] Performed By: #### L [id number] ####[facility] ([facility])[address] [place] [address] Glucose [Mass/Vol] 104 mg/dL Normal 70-105 [facility] Comment on above: Order Comment: Waive d Testing in the ED is performed under the ED CLIA certificate #[id number]. Result Comment: [email or web address] Performed By: #### L [id number] ####[facility] ([facility])[address] [place] [address] Glucose [Mass/Vol] 73 mg/dL Normal 70-105 [facility] Comment on above: Order Comment: Waive d Testing in the ED is performed under the ED CLIA certificate #[id number]. Result Comment: [email or web address] Performed By: #### L [id number] ####[facility] ([facility])[address] [place] [address] PTH, INTACTon 03-06-2025 PARATHYRIN INTACT (PG/ML) IN SER/PLAS 134 pg/mL High 12-88 [facility] Comment on above: Performed By: #### L [id number] ####[facility] ([facility])[address] [place] [address] URIC ACIDon 03-06-2025 Magnesium [Mass/Vol] 15.0 mg/dL High 4.4-7.6 [facility] Comment on above: Performed By: #### L [id number] ####[facility] ([facility])[address] [place] [address] URINALYSISon 03-06-2025 BILIRUBIN, TOTAL PRESENCE IN URINE Negative Normal Negative [facility] Comment on above: Order Comment: Micro scopics not performed on urines with negative chemical reactions unless requested on original order. Performed By: #### L [id number] ####[facility] ([facility])[address] [place] [address] Clarity (U) Clear Normal Clear [facility] Comment on above: Order Comment: Micro scopics not performed on urines with negative chemical reactions unless requested on original order. Performed By: #### L [id number] ####[facility] ([facility])[address] [place] [address] Color (U) Colorless Normal Colorless, Yellow, Light-Yellow [facility] Comment on above: Order Comment: Micro scopics not performed on urines with negative chemical reactions unless requested on original order. Performed By: #### L [id number] ####[facility] ([facility])[address] [place] [address] GLUCOSE (MG/DL) IN URINE Normal Normal Normal [facility] Comment on above: Order Comment: Micro scopics not performed on urines with negative chemical reactions unless requested on original order. Performed By: #### L [id number] ####[facility] ([facility])[address] [place] [address] HEMOGLOBIN PRESENCE IN URINE Negative Normal Negative [facility] Comment on above: Order Comment: Micro scopics not performed on urines with negative chemical reactions unless requested on original order. Performed By: #### L [id number] ####[facility] ([facility])[address] [place] [address] Ketones Ql (U) Negative Normal Negative [facility] Comment on above: Order Comment: Micro scopics not performed on urines with negative chemical reactions unless requested on original order. Performed By: #### L [id number] ####[facility] ([facility])[address] [place] [address] LEUKOCYTE ESTERASE PRESENCE IN URINE BY TEST STRIP Negative Normal Negative [facility] Comment on above: Order Comment: Micro scopics not performed on urines with negative chemical reactions unless requested on original order. Performed By: #### L [id number] ####[facility] ([facility])[address] [address] NITRITE PRESENCE IN URINE Negative Normal Negative [facility] Comment on above: Order Comment: Micro scopics not performed on urines with negative chemical reactions unless requested on original order. Performed By: #### L [id number] ####[facility] ([facility])[address] [place] [address] pH (U) 6.5 [pH] Normal 5.0-8.0 [facility] Comment on above: Order Comment: Micro scopics not performed on urines with negative chemical reactions unless requested on original order. Performed By: #### L [id number] ####[facility] ([facility])[address] [place] [address] Protein (U) [Mass/Vol] Negative Normal Negative [facility] Comment on above: Order Comment: Micro scopics not performed on urines with negative chemical reactions unless requested on original order. Performed By: #### L [id number] ####[facility] ([facility])[address] [place] [address] Specific gravity (U) [Rel density] 1.007 Low 1.010-1.030 [facility] Comment on above: Order Comment: Micro scopics not performed on urines with negative chemical reactions unless requested on original order. Performed By: #### L [id number] ####[facility] ([facility])[address] [place] [address] UROBILINOGEN (MG/DL) IN URINE Normal Normal Normal [facility] Comment on above: Order Comment: Micro scopics not performed on urines with negative chemical reactions unless requested on original order. Performed By: #### L [id number] ####[facility] ([facility])[address] [place] [address] 30on 03-05-2025 30 The patient is Moder ately Stable - Low risk of patient condition declining or worsening The patient's goals for the shift include comfort The clinical goals for the shift include stable vitals Normal [facility] APTTon 03-05-2025 ACTIVATED PARTIAL THROMBOPLASTIN TIME IN PPP BY COAGULATION ASSAY 40.6 Seconds High 25.0-35.0 [facility] Comment on above: Result Comment: Clin ical significance of the APTT is questionable in the presence of heparin. Performed By: #### L [id number] ####[facility] ([facility])[address] [place] [address] B-TYPE NATRIURETIC PEPTIDEon 03-05-2025 Natriuretic peptide B (Bld) [Mass/Vol] 4437 pg/mL High 0-100 [facility] Comment on above: Performed By: #### L [id number] ####[facility] ([facility] [place] [address] CBC WITH AUTO DIFFERENTIALon 03-05-2025 Basophils (Bld) [#/Vol] 0.03 10*3/uL Normal 0.00-0.20 [facility] Comment on above: Performed By: #### L [id number] ####[facility] ([facility])[address] [place] [address] Basophils/100 WBC (Bld) 0.3 % Normal 0.0-1.0 [facility] Comment on above: Performed By: #### L [id number] ####[facility] ([facility])[address] [place] [address] Eosinophils (Bld) [#/Vol] 0.01 10*3/uL Normal 0.00-0.50 [facility] Comment on above: Performed By: #### L [id number] ####[facility] ([facility])[address] [place] [address] Eosinophils/100 WBC (Bld) 0.1 % Normal 0.0-6.0 [facility] Comment on above: Performed By: #### L [id number] ####[facility] ([facility])[address] [place] [address] Erythrocyte distribution width (RBC) [Ratio] 17.5 % High 11.5-15.0 [facility] Comment on above: Performed By: #### L [id number] ####[facility] ([facility])[address] [place] [address] ERYTHROCYTE MEAN CORPUSCULAR HEMOGLOBIN CONCENTRATION (G/DL) BY AUTOMATED 31.1 g/dL Low 32.0-35.0 [facility] Comment on above: Performed By: #### L [id number] ####[facility] ([facility])[address] [place] [address] Hematocrit (Bld) [Volume fraction] 41.5 % Normal 39.0-50.0 [facility] Comment on above: Performed By: #### L [id number] ####[facility] ([facility])[address] [place] [address] Hemoglobin (Bld) [Mass/Vol] 12.9 g/dL Low 13.0-17.0 [facility] Comment on above: Performed By: #### L [id number] ####[facility] ([facility])[address] [place] [address] Immature granulocytes (Bld) [#/Vol] 0.07 10*3/uL Normal 0.00-0.20 [facility] Comment on above: Performed By: #### L [id number] ####[facility] ([facility])[address] [place] [address] Immature granulocytes/100 WBC (Bld) 0.8 % Normal 0.0-1.0 [facility] Comment on above: Performed By: #### L [id number] ####[facility] ([facility])[address] [place] [address] Lymphocytes (Bld) [#/Vol] 0.37 10*3/uL Low 1.20-4.00 [facility] Comment on above: Performed By: #### L [id number] ####[facility] ([facility])[address] [place] [address] Lymphocytes/100 WBC (Bld) 4.0 % Low 20.0-45.0 [facility] Comment on above: Performed By: #### L [id number] ####[facility] ([facility])[address] [place] [address] MCH (RBC) [Entitic mass] 30.7 pg Normal 27.0-33.0 [facility] Comment on above: Performed By: #### L [id number] ####[facility] ([facility])[address] [place] [address] MCV (RBC) [Entitic vol] 98.8 fL High 82.0-98.0 [facility] Comment on above: Performed By: #### L [id number] ####[facility] ([facility])[address] [place] [address] Monocytes (Bld) [#/Vol] 0.61 10*3/uL Normal 0.10-1.00 [facility] Comment on above: Performed By: #### L [id number] ####[facility] ([facility])[address] [place] [address] Monocytes/100 WBC (Bld) 6.6 % Normal 5.0-12.0 [facility] Comment on above: Performed By: #### L [id number] ####[facility] ([facility])[address] [place] [address] Neutrophils (Bld) [#/Vol] 8.18 10*3/uL High 1.60-7.60 [facility] Comment on above: Performed By: #### L [id number] ####[facility] ([facility])[address] [place] [address] Neutrophils/100 WBC (Bld) 88.2 % High 40.0-72.0 [facility] Comment on above: Performed By: #### L [id number] ####[facility] ([facility])[address] [place] [address] NRBC (PER 100 WBCS) BY AUTOMATED COUNT 0.0 % Normal 0 [facility] Comment on above: Performed By: #### L [id number] ####[facility] ([facility])[address] [place] [address] PLATELETS (10*3/UL) IN BLOOD AUTOMATED COUNT 161 10*3/uL Normal 150-400 [facility] Comment on above: Performed By: #### L [id number] ####[facility] ([facility])[address] [place] [address] RBC (Bld) [#/Vol] 4.20 10*6/uL Normal 4.20-5.70 [facility] Comment on above: Performed By: #### L [id number] ####[facility] ([facility])[address] [place] [address] WBC (Bld) [#/Vol] 9.27 10*3/uL Normal 4.00-10.60 [facility] Comment on above: Performed By: #### L [id number] ####[facility] ([facility])[address] [place] [address] COMPREHENSIVE METABOLIC PANE Aldo 03-05-2025 Albumin [Mass/Vol] 3.0 g/dL Low 3.5-5.7 [facility] Comment on above: Performed By: #### L [id number] ####[facility] ([facility])[address] [place] [address] ALP [Catalytic activity/Vol] 91 U/L Normal 34-104 [facility] Comment on above: Performed By: #### L [id number] ####[facility] ([facility])[address] [place] [address] ALT [Catalytic activity/Vol] 9 U/L Normal 7-52 [facility] Comment on above: Performed By: #### L [id number] ####[facility] ([facility])[address] [place] [address] Anion gap [Moles/Vol] 19 mmol/L Normal 7-20 [facility] Comment on above: Performed By: #### L [id number] ####[facility] ([facility])[address] [place] [address] AST [Catalytic activity/Vol] 20 U/L Normal 13-39 [facility] Comment on above: Performed By: #### L [id number] ####[facility] ([facility])[address] [place] [address] Bilirubin [Mass/Vol] 1.4 mg/dL High 0.3-1.0 [facility] Comment on above: Performed By: #### L [id number] ####[facility] ([facility])[address] [place] [address] Calcium [Mass/Vol] 8.8 mg/dL Normal 8.6-10.3 [facility] Comment on above: Performed By: #### L [id number] ####[facility] ([facility])[address] [place] [address] Chloride [Moles/Vol] 101 mmol/L Normal 98-107 [facility] Comment on above: Performed By: #### L [id number] ####[facility] ([facility])[address] [place] [address] CO2 [Moles/Vol] 20 mmol/L Low 21-31 [facility] Comment on above: Performed By: #### L [id number] ####[facility] ([facility])[address] [place] [address] Creatinine [Mass/Vol] 3.09 mg/dL High 0.70-1.30 [facility] Comment on above: Performed By: #### L [id number] ####[facility] ([facility])[address] [place] [address] GLOMERULAR FILTRATION RATE ML/MIN/1.73 SQ M.PREDICTED 19.3 mL/min/1.73m*2 Low >60.0 [facility] Comment on above: Result Comment: The [facility]???s estimated glomerular filtration rate (eGFR) will no [...] of individuals. Performed By: #### L [id number] ####[facility] ([facility])[address] [place] [address] Glucose [Mass/Vol] 74 mg/dL Normal 70-100 [facility] Comment on above: Performed By: #### L [id number] ####[facility] ([facility])[address] [place] [address] Potassium [Moles/Vol] 4.3 mmol/L Normal 3.5-5.1 [facility] Comment on above: Performed By: #### L [id number] ####[facility] ([facility])[address] [place] [address] Protein [Mass/Vol] 6.1 g/dL Normal 6.0-8.3 [facility] Comment on above: Performed By: #### L [id number] ####[facility] ([facility])[address] [place] [address] Sodium [Moles/Vol] 136 mmol/L Normal 136-145 [facility] Comment on above: Performed By: #### L [id number] ####[facility] ([facility])[address] [place] [address] Urea nitrogen [Mass/Vol] 77 mg/dL High 7-25 [facility] Comment on above: Performed By: #### L [id number] ####[facility] ([facility])[address] [place] [address] UREA NITROGEN/CREATININE (MASS RATIO) IN SER/PLAS 24.9 [facility] Comment on above: Performed By: #### L [id number] ####[facility] ([facility])[address] [place] [address] HIGH SENSITIVITY TROPONIN Io n 03-05-2025 HS TROPONIN I (NG/L) 309 ng/L Critically high <20 [facility] Comment on above: Performed By: #### L [id number] ####[facility] ([facility])[address] [place] [address] HS TROPONIN I (NG/L) 351 ng/L Critically high <20 [facility] Comment on above: Performed By: #### L [id number] ####[facility] ([facility])[address] [place] [address] HPon 03-05-2025 HP Normal [facility] MAGNESIUMon 03-05-2025 Magnesium [Mass/Vol] 2.7 mg/dL Normal 1.9-2.7 [facility] Comment on above: Performed By: #### L [id number] ####[facility] ([facility])[address] [place] [address] PHOSPHORUSon 03-05-2025 Magnesium [Mass/Vol] 5.9 mg/dL High 2.5-5.0 [facility] Comment on above: Performed By: #### L [id number] ####[facility] ([facility])[address] [place] [address] POCT GLUCOSE METER UNSOLICIT ED RESULTSon 03-05-2025 Glucose [Mass/Vol] 75 mg/dL Normal 70-105 [facility] Comment on above: Order Comment: Waive d Testing in the ED is performed under the ED CLIA certificate #[id number]. Result Comment: [email or web address] Performed By: #### L [id number] ####[facility] ([facility])[address] [place] [address] PROTIME-INRon 03-05-2025 INR IN PPP BY COAGULATION ASSAY 3.00 High 0.90-1.10 [facility] Comment on above: Result Comment: ACCC P [...] CHEST 1995;108:[id number]-246S. Performed By: #### L [id number] ####[facility] ([facility])[address] [place] [address] PROTHROMBIN TIME (PT) IN PPP BY COAGULATION ASSAY 30.4 Seconds High 12.3-14.8 [facility] Comment on above: Performed By: #### L [id number] ####[facility] ([facility])[address] [place] [address] TSH3 REFLEX TO FT4on 025 THYROTROPIN (MIU/L) IN SER/PLAS BY DETECTION LIMIT <= 0.05 MIU/L 1.69 mIU/L Normal 0.34-5.60 [facility] Comment on above: Performed By: #### L [id number] ####[facility] ([facility])[address] [place] [address] ANES POSTPROC EVALon 025 ANES POSTPROC EVAL Normal [facility] ANES PRE-OPon 03-03-2025 ANES PRE-OP Normal [facility] Comprehensive metabolic 2000 panelon 03-03-2025 Albumin [Mass/Vol] 3.9 g/dL Normal 3.9-4.9 [facility] Comment on above: Order Comment: Speci men Type: BLOOD SPECIMENOrdering Facility: [facility] Address: [address] [place] [address] Performed By: #### 2 4323-8 ####[facility] LABIA [id number] [place] [address] [place] ALP [Catalytic activity/Vol] 125 U/L High 38-113 [facility] Comment on above: Order Comment: Speci men Type: BLOOD SPECIMENOrdering Facility: [facility] Address: [address] [place] [address] Performed By: #### 2 4323-8 ####[facility] LABCLIA [id number] [id number], [place] [address] [place] ALT [Catalytic activity/Vol] 14 U/L Normal 10-54 [facility] Comment on above: Order Comment: Speci men Type: BLOOD SPECIMENOrdering Facility: [facility] Address: [address] [place] [address] Performed By: #### 2 4323-8 ####[facility] LABCLIA [id number] [facility] [address] [place] [address] [place] Anion gap [Moles/Vol] 13 mmol/L Normal 8-15 [facility] Comment on above: Order Comment: Speci men Type: BLOOD SPECIMENOrdering Facility: [facility] Address: [address] [place] [address] Performed By: #### 2 4323-8 ####[facility] LABCLIA [id number] [facility] [address], [facility] [place] AST [Catalytic activity/Vol] 20 U/L Normal 14-40 [facility] Comment on above: Order Comment: Speci men Type: BLOOD SPECIMENOrdering Facility: [facility] Address: [address] [place] [address] Performed By: #### 2 4323-8 ####[facility] LABCLIA [id number] [address], [facility] [place] Bilirubin [Mass/Vol] 1.8 mg/dL High 0.2-1.3 [facility] Comment on above: Order Comment: Speci men Type: BLOOD SPECIMENOrdering Facility: [facility] Address: [address] [place] [id number] Performed By: #### 2 4323-8 ####[facility] LABCLIA [id number] [place] [address] [place] Calcium [Mass/Vol] 9.5 mg/dL Normal 8.5-10.2 [facility] Comment on above: Order Comment: Speci men Type: BLOOD SPECIMENOrdering Facility: [facility] Address: [address] [place], [place] [address] Performed By: #### 2 4323-8 ####[facility] LABCLIA [id number] [facility] [address], [facility] [place] Chloride [Moles/Vol] 101 mmol/L Normal 98-107 [facility] Comment on above: Order Comment: Speci men Type: BLOOD SPECIMENOrdering Facility: [facility] Address: [address] [place] [address] Performed By: #### 2 4323-8 ####[facility] LABCLIA [id number] [address], [facility]95 [place] CO2 [Moles/Vol] 24 mmol/L Normal 22-30 [facility] Comment on above: Order Comment: Speci men Type: BLOOD SPECIMENOrdering Facility: [facility] Address: [address] [place] [address] Performed By: #### 2 4323-8 ####[facility] LABCLIA [id number] [place] [address] [place] Creatinine [Mass/Vol] 2.46 mg/dL High 0.73-1.22 [facility] Comment on above: Order Comment: Speci men Type: BLOOD SPECIMENOrdering Facility: [facility] Address: [address] [place] [address] Performed By: #### 2 4323-8 ####[facility] LABCLIA [id number] [address] [place] Creatinine and Glomerular filtration rate.predicted panel (S/P/Bld) 25 mL/min/1.73m??? Low >=60 [facility] Comment on above: Order Comment: Speci men Type: BLOOD SPECIMENOrdering Facility: [facility] Address: [address] [place] [address] Result Comment: Etta mated Glomerular Filtration Rate [...] actual GFR. Performed By: #### 2 4323-8 ####[facility] LABCLIA [id number] [facility] [id number] [address] [place] Glucose [Mass/Vol] 106 mg/dL High 74-99 [facility] Comment on above: Order Comment: Speci men Type: BLOOD SPECIMENOrdering Facility: [facility] Address: [address] [place] [address] Result Comment: The [place] [employer] Association (ADA) provides guidance for cutoff [...] Standards of Medical Care in Diabetes 2016, [place] [employer]. Diabetes Care. 2016.39(Suppl 1). Performed By: #### 2 4323-8 ####[facility] LABCLIA [id number] [facility] [address] [place] [address] [place] Potassium [Moles/Vol] 5.4 mmol/L High 3.7-5.1 [facility] Comment on above: Order Comment: Speci men Type: BLOOD SPECIMENOrdering Facility: [facility] Address: [address] [place] [address] Performed By: #### 2 4323-8 ####[facility] LABCLIA [id number] [facility] [id number] [address] [place] Protein [Mass/Vol] 7.2 g/dL Normal 6.3-8.0 [facility] Comment on above: Order Comment: Speci men Type: BLOOD SPECIMENOrdering Facility: [facility] Address: [address] [place] [address] Performed By: #### 2 4323-8 ####[facility] LABCLIA [id number] [address] [address] [place] Sodium [Moles/Vol] 138 mmol/L Normal 136-144 [facility] Comment on above: Order Comment: Speci men Type: BLOOD SPECIMENOrdering Facility: [facility] Address: [address] [place] [address] Performed By: #### 2 4323-8 ####[facility] LABCLIA [id number] [place] [address] [place] Urea nitrogen [Mass/Vol] 59 mg/dL High 9-24 [facility] Comment on above: Order Comment: Speci men Type: BLOOD SPECIMENOrdering Facility: [facility] Address: [address] [place] [address] Performed By: #### 2 4323-8 ####[facility] LABCLIA [id number] [place] [address] [place] ECG COMPLETEon 03-03-2025 ECG COMPLETE Normal [facility] ECG COMPLETE Normal [facility] CNPNon 03-02-2025 CNPN Normal [facility] CARDIAC IMPLANTABLE DEVICE C HECKOrdered By: Nj Wei on 03-01-2025 Atrial Tachy Statistic AT/AF [place] Percent 1 [facility] Work Phone: Battery Status MONIKA [facility] Work Phone: Bj Setting AT Mode Switch Rate 170 [facility] Work Phone: Bj Setting Lower Rate Limit 50 [facility] Work Phone: Bj Setting Maximum Sensor Rate 130 [facility] Work Phone: Bj Setting Maximum Tracking Rate 130 [facility] Work Phone: Bj Setting Mode (NBG Code) DDDR [facility] Work Phone: [phone] Bj Setting PAV Delay 200 [facility] Work Phone: [phone] Bj Setting ABDULLAHI Delay 170 [facility] Work Phone: [phone] Bj Statistic RA Percent Paced 1 [facility] Work Phone: [phone] Bj Statistic RV Percent Paced 1 [facility] Work Phone: [phone] Date Time Interrogation Session [facility] Work Phone: [phone] Implantable Lead Implant Date 20190324 [facility] Work Phone: [phone] Implantable Lead Implant Date 20190316 [facility] Work Phone: [phone] Implantable Lead Location Right Atrium [facility] Work Phone: [phone] Implantable Lead Location Right Ventricle [facility] Work Phone: [phone] Implantable Lead Model 7741 [employer] [facility] Work Phone: [phone] Implantable Lead Model 675 [facility] Work Phone: [phone] Implantable Lead Serial Number [id number] [facility] Work Phone: [phone] Implantable Lead Serial Number [id number] [facility] Work Phone: [phone] Implantable Pulse Generator Implant Date 20190324 [facility] Work Phone: [phone] Implantable Pulse Generator Asset Management Analyst [employer] [facility] Work Phone: [phone] Implantable Pulse Generator Model D142 [facility] Work Phone: [phone] Implantable Pulse Generator Serial Number [id number] [facility] Work Phone: [phone] Implantable Pulse Generator Type Defibrillator [facility] Work Phone: [phone] Lead Channel Impedance Value 647 [facility] [place] Work Phone: [phone] Lead Channel Impedance Value 375 [facility] Work Phone: [phone] Lead Channel Measurements Date and Time 2025-03-01 [facility] Work Phone: [phone] Lead Channel Pacing Threshold Amplitude 0.4 [facility] Work Phone: [phone] Lead Channel Pacing Threshold Pulse Width 0.5 [facility] Work Phone: [phone] Lead Channel Sensing Intrinsic Amplitude 1.8 [facility] Work Phone: [phone] Lead Channel Sensing Intrinsic Amplitude 18.7 [facility] Work Phone: [phone] Lead Channel Setting Sensing Sensitivity 0.25 [facility] Work Phone: [phone] Lead Channel Setting Sensing Sensitivity 0.3 [facility] Work Phone: [phone] Rate 1 240 [facility] Work Phone: [phone] Rate 1 200 [facility] Work Phone: [phone] Rate 1 175 [facility] Work Phone: [phone] Shock Measured Impedance 42 [facility] [employer] Phone: [phone] Therapy Statistic Recent ATP Delivered 1 [facility] Work Phone: [phone] Therapy Statistic Recent Shocks Aborted 0 [facility] Work Phone: [phone] Therapy Statistic Recent Shocks Delivered 0 [facility] [place] Work Phone: [phone] Zone ID 1 [facility] Work Phone: [phone] Zone ID 2 [facility] Work Phone: [phone] Zone ID 3 [facility] Work Phone: [phone] Zone Setting Type Category VF [facility] Work Phone: [phone] Zone Setting Type Category VT [facility] Work Phone: [phone] Zone Setting Type Category VT1 [facility] Work Phone: [phone] [place] [employer] [place] Work Phone: [phone] CARDIAC IMPLANTABLE DEVICE Marisa Sainz 03-01-2025 Nj Wei M D - 03/01/2025 In-Office Device Evaluation OPD with Dr. Wei * Device type: BST dual lead ICD * Presenting Rhythm: AF/VS-AREA SALES MANAGER * Underlying Rhythm: AF with variable ventricular [...] or infection. * Other Diagnostics: *AP 1%, AREA SALES MANAGER <1%, AT/AF burden 1% (however likely higher d/t DDIR programming)* Tachycardia: AF * Stored EGMs are consistent with or suggestive of Atrial Fibrillation, intermittent RVR observed on stored episodes * AT/AF [place]: 1% * OAC: Eliquis Appropriate [place] Therapy: [...] Docket/PDF found below under Scanned Documents . [facility] CNOVon 03-01-2025 CNOV Normal [facility] ECG COMPLETEon 03-01-2025 ECG COMPLETE Normal [facility] No Panel InformationOrdered By: Nj Wei on 03-01-2025 Implantable Lead Connection Status Connected [facility] Work Phone: [phone] Implantable Lead Asset Management Analyst [employer] [facility] Work Phone: [phone] Lead Channel Setting Pacing Amplitude 2 [facility] Work Phone: [phone] Lead Channel Setting Pacing Pulse Width 0.5 [facility] Work Phone: [phone] Therapies 41J, 41J [facility] Work Phone: [phone] Zone Setting Status On [facility] Work Phone: [phone] US CAROTID ARTERIES DIANNE VAS LABon 03-01-2025 US CAROTID ARTERIES DIANNE VAS LAB Normal [facility] CNPNon 02-23-2025 CNPN Normal [facility] BASIC METABOLIC PANELon Anion gap [Moles/Vol] 12 mmol/L Normal 5-15 [facility] Comment on above: Performed By: #### C MP #### [facility] ([address] [place] [address] VIR Calcium [Mass/Vol] 8.5 mg/dL Normal 8.5-10.5 [facility] Comment on above: Performed By: #### C MP #### [facility] ([address] [place] [address] VIR Chloride [Moles/Vol] 101 mmol/L Normal 98-109 [facility] Comment on above: Performed By: #### C MP #### [facility] ([address] [place] [address] VIR CO2 [Moles/Vol] 23 mmol/L Normal 22-32 [facility] Comment on above: Performed By: #### C MP #### [facility] ([address] [place] [address] VIR Creatinine [Mass/Vol] 2.32 mg/dL High 0.70-1.20 [facility] Comment on above: Result Comment: METH OD TRACEABLE TO IDMS STANDARD Performed By: #### C MP #### [facility] ([address] [place] [address] VIR GFR/1.73 sq M.predicted among non-blacks MDRD (S/P/Bld) [Vol rate/Area] 27 mL/min/{1.73_m2} Low >=60 [facility] Comment on above: Result Comment: eGFR not reported due to non-numeric value for Creatinine. Reported eGFR is based on the CKD-EPI 2020 equation that does not use a race coefficient. Performed By: #### C MP #### [facility] ([address] [address] VIR Glucose [Mass/Vol] 154 mg/dL High 65-99 [facility] Comment on above: Performed By: #### C MP #### [facility] ([address] [place] [address] VIR Potassium [Moles/Vol] 3.2 mmol/L Low 3.5-5.0 [facility] Comment on above: Performed By: #### C MP #### [facility] ([address] [place] [address] VIR Sodium [Moles/Vol] 136 mmol/L Normal 134-146 [facility] Comment on above: Performed By: #### C MP #### [facility] ([address] [place] [address] VIR Urea nitrogen [Mass/Vol] 47 mg/dL High 5-27 [facility] Comment on above: Performed By: #### C MP #### [facility] ([address] [place] [address] VIR CBC WITH AUTO DIFFERENTIALon 02-22-2025 BASOPHILS ABSOLUTE COUNT (10*3/UL) BY AUTOMATED COUNT 0.0 10*3/uL Normal 0.0-0.2 [facility] Comment on above: Performed By: #### C MP #### [facility] ([address] [address] VIR BASOPHILS RELATIVE PERCENT BY AUTOMATED COUNT 0.7 % Normal [facility] Comment on above: Performed By: #### C MP #### [facility] ([address] [place] [address] VIR CELLAVISION DIFFERENTIAL TYPE AUTOMATED DIFFERENTIAL Normal [facility] Comment on above: Performed By: #### C MP #### [facility] ([address] [place] [address] VIR Eosinophils (Bld) [#/Vol] 0.3 10*3/uL Normal 0.0-0.4 [facility] Comment on above: Performed By: #### C MP #### [facility] ([address] [place] [address] VIR EOSINOPHILS RELATIVE PERCENT BY AUTOMATED COUNT 7.5 % Normal [facility] Comment on above: Performed By: #### C MP #### [facility] ([address] [place] [address] VIR Erythrocyte distribution width (RBC) [Ratio] 17.7 % High 11.5-15 [facility] Comment on above: Performed By: #### C MP #### [facility] ([address] [place] [address] VIR Hematocrit (Bld) [Volume fraction] 34.6 % Low 39-50 [facility] Comment on above: Performed By: #### C MP #### [facility] ([address] [place] [address] VIR Hemoglobin (Bld) [Mass/Vol] 11.3 g/dL Low 13-17 [facility] Comment on above: Performed By: #### C MP #### [facility] ([address] [place] [address] VIR LYMPHOCYTES ABSOLUTE COUNT (10*3/UL) BY AUTOMATED COUNT 0.4 10*3/uL Low 1.0-3.5 [facility] Comment on above: Performed By: #### C MP #### [facility] ([address] [place] [address] VIR LYMPHOCYTES RELATIVE PERCENT BY AUTOMATED COUNT 10.4 % Normal [facility] Comment on above: Performed By: #### C MP #### [facility] ([address] [place] [address] VIR MCH (RBC) [Entitic mass] 31.2 pg Normal 27-34 [facility] Comment on above: Performed By: #### C MP #### [facility] ([facility]) [address] [place] [address] VIR MCHC (RBC) [Mass/Vol] 32.7 g/dL Normal 32-36 [facility] Comment on above: Performed By: #### C MP #### [facility] ([address] [address] VIR MCV (RBC) [Entitic vol] 95 fL Normal 80-100 [facility] Comment on above: Performed By: #### C MP #### [facility] ([address] [address] VIR MONOCYTES ABSOLUTE COUNT (10*3/UL) BY AUTOMATED COUNT 0.4 10*3/uL Normal 0.0-0.9 [facility] Comment on above: Performed By: #### C MP #### [facility] ([address] [address] VIR MONOCYTES RELATIVE PERCENT BY AUTOMATED COUNT 11.7 % Normal [facility] Comment on above: Performed By: #### C MP #### [facility] ([address] [address] VIR NEUTROPHILS ABSOLUTE COUNT BY AUTOMATED COUNT 2.6 10*3/uL Normal 1.5-6.6 [facility] Comment on above: Performed By: #### C MP #### [facility] ([address] [address] VIR NEUTROPHILS RELATIVE PERCENT BY AUTOMATED COUNT 69.7 % Normal [facility] Comment on above: Performed By: #### C MP #### [facility] ([address] [place] [address] VIR Platelet mean volume (Bld) [Entitic vol] 8.4 fL Normal 7-12 [facility] Comment on above: Performed By: #### C MP #### [facility] ([address] [place] [address] VIR Platelets (Bld) [#/Vol] 139 10*3/uL Low 150-450 [facility] Comment on above: Performed By: #### C MP #### [facility] ([address] [place] [address] VIR RBC COUNT 3.63 X10E12/L Low 4.1-5.7 [facility] Comment on above: Performed By: #### C MP #### [facility] ([address] [address] VIR WBC (Bld) [#/Vol] 3.8 10*3/uL Low 4-11 [facility] Comment on above: Performed By: #### C MP #### [facility] ([address] [address] VIR CBC WITH AUTO DIFFERENTIALon 02-09-2025 BASOPHILS ABSOLUTE COUNT (10*3/UL) BY AUTOMATED COUNT 0.0 10*3/uL Normal 0.0-0.2 [facility] Comment on above: Performed By: #### C MP #### [facility] ([address] [place] [address] VIR BASOPHILS RELATIVE PERCENT BY AUTOMATED COUNT 0.5 % Normal [facility] Comment on above: Performed By: #### C MP #### [facility] ([address] [place] [address] VIR CELLAVISION DIFFERENTIAL TYPE AUTOMATED DIFFERENTIAL Normal [facility] Comment on above: Performed By: #### C MP #### [facility] ([address] [place] [address] VIR Eosinophils (Bld) [#/Vol] 0.3 10*3/uL Normal 0.0-0.4 [facility] Comment on above: Performed By: #### C MP #### [facility] ([address] [place] [address] VIR EOSINOPHILS RELATIVE PERCENT BY AUTOMATED COUNT 6.3 % Normal [facility] Comment on above: Performed By: #### C MP #### [facility] ([address] [place] [address] VIR Erythrocyte distribution width (RBC) [Ratio] 17.6 % High 11.5-15 [facility] Comment on above: Performed By: #### C MP #### [facility] ([address] [address] VIR Hematocrit (Bld) [Volume fraction] 35.2 % Low 39-50 [facility] Comment on above: Performed By: #### C MP #### [facility] ([address] [address] VIR Hemoglobin (Bld) [Mass/Vol] 11.7 g/dL Low 13-17 [facility] Comment on above: Performed By: #### C MP #### [facility] ([address] [address] VIR LYMPHOCYTES ABSOLUTE COUNT (10*3/UL) BY AUTOMATED COUNT 0.7 10*3/uL Low 1.0-3.5 [facility] Comment on above: Performed By: #### C MP #### [facility] ([address] [address] VIR LYMPHOCYTES RELATIVE PERCENT BY AUTOMATED COUNT 16.4 % Normal [facility] Comment on above: Performed By: #### C MP #### [facility] ([address] [address] VIR MCH (RBC) [Entitic mass] 31.3 pg Normal 27-34 [facility] Comment on above: Performed By: #### C MP #### [facility] ([address] [place] [address] VIR MCHC (RBC) [Mass/Vol] 33.3 g/dL Normal 32-36 [facility] Comment on above: Performed By: #### C MP #### [facility] ([address] [place] [address] VIR MCV (RBC) [Entitic vol] 94 fL Normal 80-100 [facility] Comment on above: Performed By: #### C MP #### [facility] ([address] [place] [address] VIR MONOCYTES ABSOLUTE COUNT (10*3/UL) BY AUTOMATED COUNT 0.6 10*3/uL Normal 0.0-0.9 [facility] Comment on above: Performed By: #### C MP #### [facility] ([address] [place] [address] VIR MONOCYTES RELATIVE PERCENT BY AUTOMATED COUNT 14.1 % Normal [facility] Comment on above: Performed By: #### C MP #### [facility] ([address] [place] [address] VIR NEUTROPHILS ABSOLUTE COUNT BY AUTOMATED COUNT 2.6 10*3/uL Normal 1.5-6.6 [facility] Comment on above: Performed By: #### C MP #### [facility] ([address] [place] [address] VIR NEUTROPHILS RELATIVE PERCENT BY AUTOMATED COUNT 62.7 % Normal [facility] Comment on above: Performed By: #### C MP #### [facility] ([address] [place] [address] VIR Platelet mean volume (Bld) [Entitic vol] 8.1 fL Normal 7-12 [facility] Comment on above: Performed By: #### C MP #### [facility] ([facility]) [address] [place], [place] [address] [address] VIR Platelets (Bld) [#/Vol] 161 10*3/uL Normal 150-450 [facility] Comment on above: Performed By: #### C MP #### [facility] ([address] [place] [address] VIR RBC COUNT 3.74 X10E12/L Low 4.1-5.7 [facility] Comment on above: Performed By: #### C MP #### [facility] ([address] [place] [address] VIR WBC (Bld) [#/Vol] 4.2 10*3/uL Normal 4-11 [facility] Comment on above: Performed By: #### C MP #### [facility] ([address] [place] [address] VIR COMPREHENSIVE METABOLIC PANE [facility] 02-09-2025 Albumin [Mass/Vol] 3.3 g/dL Normal 3.2-5.3 [facility] Comment on above: Performed By: #### C MP #### [facility] ([address] [place] [address] VIR ALP [Catalytic activity/Vol] 117 U/L Normal 39-130 [facility] Comment on above: Performed By: #### C MP #### [facility] ([address] [place] [address] VIR ALT [Catalytic activity/Vol] 11 U/L Normal <=40 [facility] Comment on above: Performed By: #### C MP #### [facility] ([address] [place] [address] VIR Anion gap [Moles/Vol] 4 mmol/L Low 5-15 [facility] Comment on above: Performed By: #### C MP #### [facility] ([place] [address] [place] [address] VIR AST [Catalytic activity/Vol] 20 U/L Normal <=41 [facility] Comment on above: Performed By: #### C MP #### [facility] ([address] [address] VIR Bilirubin [Mass/Vol] 1.1 mg/dL Normal 0.3-1.2 [facility] Comment on above: Performed By: #### C MP #### [facility] ([address] [place] [address] VIR Calcium [Mass/Vol] 8.6 mg/dL Normal 8.5-10.5 [facility] Comment on above: Performed By: #### C MP #### [address] [place] [address] VIR Chloride [Moles/Vol] 102 mmol/L Normal 98-109 [facility] Comment on above: Performed By: #### C MP #### [facility] ([address] [place] [address] VIR CO2 [Moles/Vol] 27 mmol/L Normal 22-32 [facility] Comment on above: Performed By: #### C MP #### [facility] ([address] [place] [address] VIR Creatinine [Mass/Vol] 2.18 mg/dL High 0.70-1.20 [facility] Comment on above: Result Comment: METH OD TRACEABLE TO IDMS STANDARD Performed By: #### C MP #### [facility] ([address] [place] [address] VIR GFR/1.73 sq M.predicted among non-blacks MDRD (S/P/Bld) [Vol rate/Area] 29 mL/min/{1.73_m2} Low >=60 [facility] Comment on above: Result Comment: eGFR not reported due to non-numeric value for Creatinine. Reported eGFR is based on the CKD-EPI 2020 equation that does not use a race coefficient. Performed By: #### C MP #### [facility] ([address] [place] [address] VIR Glucose [Mass/Vol] 88 mg/dL Normal 65-99 [facility] Comment on above: Performed By: #### C MP #### [facility] ([address] [place] [address] VIR Potassium [Moles/Vol] 3.8 mmol/L Normal 3.5-5.0 [facility] Comment on above: Performed By: #### C MP #### [facility] ([address] [place] [address] VIR Protein [Mass/Vol] 6.8 g/dL Normal 6.0-8.0 [facility] Comment on above: Performed By: #### C MP #### [facility] ([address] [address] VIR Sodium [Moles/Vol] 133 mmol/L Low 134-146 [facility] Comment on above: Performed By: #### C MP #### [facility] ([address] [place] [address] VIR Urea nitrogen [Mass/Vol] 49 mg/dL High 5-27 [facility] Comment on above: Performed By: #### C MP #### [facility] ([address] [place] [address] VIR CBC WITH AUTO DIFFERENTIALon 02-01-2025 BASOPHILS ABSOLUTE COUNT (10*3/UL) BY AUTOMATED COUNT 0.1 10*3/uL Normal 0.0-0.2 [facility] Comment on above: Performed By: #### C MP #### [facility] ([address] [place] [address] VIR BASOPHILS RELATIVE PERCENT BY AUTOMATED COUNT 1.2 % Normal [facility] Comment on above: Performed By: #### C MP #### [facility] ([address] [place] [address] VIR CELLAVISION DIFFERENTIAL TYPE AUTOMATED DIFFERENTIAL Normal [facility] Comment on above: Performed By: #### C MP #### [facility] ([address] [place] [address] VIR Eosinophils (Bld) [#/Vol] 0.2 10*3/uL Normal 0.0-0.4 [facility] Comment on above: Performed By: #### C MP #### [facility] ([address] [place] [address] VIR EOSINOPHILS RELATIVE PERCENT BY AUTOMATED COUNT 3.5 % Normal [facility] Comment on above: Performed By: #### C MP #### [facility] ([address] [place] [address] VIR Erythrocyte distribution width (RBC) [Ratio] 17.6 % High 11.5-15 [facility] Comment on above: Performed By: #### C MP #### [facility] ([address] [place] [address] VIR Hematocrit (Bld) [Volume fraction] 35.9 % Low 39-50 [facility] Comment on above: Performed By: #### C MP #### [facility] ([address] [place] [address] VIR Hemoglobin (Bld) [Mass/Vol] 12.1 g/dL Low 13-17 [facility] Comment on above: Performed By: #### C MP #### [facility] ([address] [place] [address] VIR LYMPHOCYTES ABSOLUTE COUNT (10*3/UL) BY AUTOMATED COUNT 0.6 10*3/uL Low 1.0-3.5 [facility] Comment on above: Performed By: #### C MP #### [facility] ([address] [address] VIR LYMPHOCYTES RELATIVE PERCENT BY AUTOMATED COUNT 12.2 % Normal [facility] Comment on above: Performed By: #### C MP #### [facility] ([address] [address] VIR MCH (RBC) [Entitic mass] 31.4 pg Normal 27-34 [facility] Comment on above: Performed By: #### C MP #### [facility] ([address] [address] VIR MCHC (RBC) [Mass/Vol] 33.6 g/dL Normal 32-36 [facility] Comment on above: Performed By: #### C MP #### [facility] ([address] [address] VIR MCV (RBC) [Entitic vol] 94 fL Normal 80-100 [facility] Comment on above: Performed By: #### C MP #### [facility] ([address] [address] VIR MONOCYTES ABSOLUTE COUNT (10*3/UL) BY AUTOMATED COUNT 0.6 10*3/uL Normal 0.0-0.9 [facility] Comment on above: Performed By: #### C MP #### [facility] ([address] [address] VIR MONOCYTES RELATIVE PERCENT BY AUTOMATED COUNT 12.5 % Normal [facility] Comment on above: Performed By: #### C MP #### [facility] ([address] [address] VIR NEUTROPHILS ABSOLUTE COUNT BY AUTOMATED COUNT 3.3 10*3/uL Normal 1.5-6.6 [facility] Comment on above: Performed By: #### C MP #### [facility] ([address] [place] [address] VIR NEUTROPHILS RELATIVE PERCENT BY AUTOMATED COUNT 70.6 % Normal [facility] Comment on above: Performed By: #### C MP #### [facility] ([address] [place] [address] VIR Platelet mean volume (Bld) [Entitic vol] 8.3 fL Normal 7-12 [facility] Comment on above: Performed By: #### C MP #### [facility] ([address] [place] [address] VIR Platelets (Bld) [#/Vol] 156 10*3/uL Normal 150-450 [facility] Comment on above: Performed By: #### C MP #### [facility] ([address] [place] [address] VIR RBC COUNT 3.84 X10E12/L Low 4.1-5.7 [facility] Comment on above: Performed By: #### C MP #### [facility] ([address] [address] VIR WBC (Bld) [#/Vol] 4.7 10*3/uL Normal 4-11 [facility] Comment on above: Performed By: #### C MP #### [facility] ([address] [address] VIR COMPREHENSIVE METABOLIC PANE [facility] 02-01-2025 Albumin [Mass/Vol] 3.3 g/dL Normal 3.2-5.3 [facility] Comment on above: Performed By: #### C MP #### [facility] ([address] [place] [address] VIR ALP [Catalytic activity/Vol] 103 U/L Normal 39-130 [facility] Comment on above: Performed By: #### C MP #### [facility] ([place] [address] [place] [address] VIR ALT [Catalytic activity/Vol] 11 U/L Normal <=40 [facility] Comment on above: Performed By: #### C MP #### [facility] ([address] [place] [address] VIR Anion gap [Moles/Vol] 10 mmol/L Normal 5-15 [facility] Comment on above: Performed By: #### C MP #### [facility] ([address] [place] [address] VIR AST [Catalytic activity/Vol] 19 U/L Normal <=41 [facility] Comment on above: Performed By: #### C MP #### [facility] ([address] [place] [address] VIR Bilirubin [Mass/Vol] 1.3 mg/dL High 0.3-1.2 [facility] Comment on above: Performed By: #### C MP #### [facility] ([address] [place] [address] VIR Calcium [Mass/Vol] 8.1 mg/dL Low 8.5-10.5 [facility] Comment on above: Performed By: #### C MP #### [facility] ([place] [address] [place] [address] VIR Chloride [Moles/Vol] 103 mmol/L Normal 98-109 [facility] Comment on above: Performed By: #### C MP #### [facility] ([address] [place] [address] VIR CO2 [Moles/Vol] 21 mmol/L Low 22-32 [facility] Comment on above: Performed By: #### C MP #### [facility] ([address] [place] [address] VIR Creatinine [Mass/Vol] 2.47 mg/dL High 0.70-1.20 [facility] Comment on above: Result Comment: METH OD TRACEABLE TO IDMS STANDARD Performed By: #### C MP #### [facility] ([address] [place] [address] VIR GFR/1.73 sq M.predicted among non-blacks MDRD (S/P/Bld) [Vol rate/Area] 25 mL/min/{1.73_m2} Low >=60 [facility] Comment on above: Result Comment: eGFR not reported due to non-numeric value for Creatinine. Reported eGFR is based on the CKD-EPI 2020 equation that does not use a race coefficient. Performed By: #### C MP #### [facility] ([address] [place] [address] VIR Glucose [Mass/Vol] 100 mg/dL High 65-99 [facility] Comment on above: Performed By: #### C MP #### [facility] ([address] [place] [address] VIR Potassium [Moles/Vol] 4.1 mmol/L Normal 3.5-5.0 [facility] Comment on above: Performed By: #### C MP #### [facility] ([address] [place] [address] VIR Protein [Mass/Vol] 7.0 g/dL Normal 6.0-8.0 [facility] Comment on above: Performed By: #### C MP #### [facility] ([address] [place] [address] VIR Sodium [Moles/Vol] 134 mmol/L Normal 134-146 [facility] Comment on above: Performed By: #### C MP #### [facility] ([address] [place] [address] VIR Urea nitrogen [Mass/Vol] 50 mg/dL High 5-27 [facility] Comment on above: Performed By: #### C MP #### [facility] ([address] [address] VIR CNPNon 01-26-2025 CNPN Normal [facility] CBC WITH AUTO DIFFERENTIALon 01-25-2025 BASOPHILS ABSOLUTE COUNT (10*3/UL) BY AUTOMATED COUNT 0.0 10*3/uL Normal 0.0-0.2 [facility] Comment on above: Performed By: #### C MP #### [facility] ([address] [address] VIR BASOPHILS RELATIVE PERCENT BY AUTOMATED COUNT 0.5 % Normal [facility] Comment on above: Performed By: #### C MP #### [address] [address] VIR CELLAVISION DIFFERENTIAL TYPE AUTOMATED DIFFERENTIAL Normal [facility] Comment on above: Performed By: #### C MP #### [facility] ([address] [address] VIR Eosinophils (Bld) [#/Vol] 0.3 10*3/uL Normal 0.0-0.4 [facility] Comment on above: Performed By: #### C MP #### [facility] ([address] [address] VIR EOSINOPHILS RELATIVE PERCENT BY AUTOMATED COUNT 6.3 % Normal [facility] Comment on above: Performed By: #### C MP #### [address] [address] VIR Erythrocyte distribution width (RBC) [Ratio] 17.5 % High 11.5-15 [facility] Comment on above: Performed By: #### C MP #### [facility] ([address] [address] VIR Hematocrit (Bld) [Volume fraction] 33.7 % Low 39-50 [facility] Comment on above: Performed By: #### C MP #### [facility] ([address] [place] [address] VIR Hemoglobin (Bld) [Mass/Vol] 11.2 g/dL Low 13-17 [facility] Comment on above: Performed By: #### C MP #### [facility] ([address] [address] VIR LYMPHOCYTES ABSOLUTE COUNT (10*3/UL) BY AUTOMATED COUNT 0.8 10*3/uL Low 1.0-3.5 [facility] Comment on above: Performed By: #### C MP #### [facility] ([address] [address] VIR LYMPHOCYTES RELATIVE PERCENT BY AUTOMATED COUNT 15.2 % Normal [facility] Comment on above: Performed By: #### C MP #### [facility] ([address] [address] VIR MCH (RBC) [Entitic mass] 31.0 pg Normal 27-34 [facility] Comment on above: Performed By: #### C MP #### [facility] ([address] [place] [address] VIR MCHC (RBC) [Mass/Vol] 33.2 g/dL Normal 32-36 [facility] Comment on above: Performed By: #### C MP #### [facility] ([address] [address] VIR MCV (RBC) [Entitic vol] 93 fL Normal 80-100 [facility] Comment on above: Performed By: #### C MP #### [facility] ([address] [address] VIR MONOCYTES ABSOLUTE COUNT (10*3/UL) BY AUTOMATED COUNT 0.6 10*3/uL Normal 0.0-0.9 [facility] Comment on above: Performed By: #### C MP #### [facility] ([address] [address] VIR MONOCYTES RELATIVE PERCENT BY AUTOMATED COUNT 12.1 % Normal [facility] Comment on above: Performed By: #### C MP #### [facility] ([address] [address] VIR NEUTROPHILS ABSOLUTE COUNT BY AUTOMATED COUNT 3.3 10*3/uL Normal 1.5-6.6 [facility] Comment on above: Performed By: #### C MP #### [facility] ([address] [address] VIR NEUTROPHILS RELATIVE PERCENT BY AUTOMATED COUNT 65.9 % Normal [facility] Comment on above: Performed By: #### C MP #### [facility] ([address] [address] VIR Platelet mean volume (Bld) [Entitic vol] 7.9 fL Normal 7-12 [facility] Comment on above: Performed By: #### C MP #### [facility] ([address] [address] VIR Platelets (Bld) [#/Vol] 161 10*3/uL Normal 150-450 [facility] Comment on above: Performed By: #### C MP #### [facility] ([address] [address] VIR RBC COUNT 3.62 X10E12/L Low 4.1-5.7 [facility] Comment on above: Performed By: #### C MP #### [facility] ([address] [address] VIR WBC (Bld) [#/Vol] 4.9 10*3/uL Normal 4-11 [facility] Comment on above: Performed By: #### C MP #### [facility] ([facility]) [facility] [place] [address] VIR COMPREHENSIVE METABOLIC PANE Aldo 01-25-2025 Albumin [Mass/Vol] 3.3 g/dL Normal 3.2-5.3 [facility] Comment on above: Performed By: #### C MP #### [facility] ([address] [place] [address] VIR ALP [Catalytic activity/Vol] 122 U/L Normal 39-130 [facility] Comment on above: Performed By: #### C MP #### [facility] ([address] [place] [address] VIR ALT [Catalytic activity/Vol] 11 U/L Normal <=40 [facility] Comment on above: Performed By: #### C MP #### [facility] ([address] [place] [address] VIR Anion gap [Moles/Vol] 7 mmol/L Normal 5-15 [facility] Comment on above: Performed By: #### C MP #### [facility] ([address] [place] [address] VIR AST [Catalytic activity/Vol] 22 U/L Normal <=41 [facility] Comment on above: Performed By: #### C MP #### [facility] ([address] [place] [address] VIR Bilirubin [Mass/Vol] 0.9 mg/dL Normal 0.3-1.2 [facility] Comment on above: Performed By: #### C MP #### [facility] ([place] [address] [place] [place] [address] VIR Calcium [Mass/Vol] 8.4 mg/dL Low 8.5-10.5 [facility] Comment on above: Performed By: #### C MP #### [facility] ([address] [place] [address] VIR Chloride [Moles/Vol] 104 mmol/L Normal 98-109 [facility] Comment on above: Performed By: #### C MP #### [facility] ([address] [place] [address] VIR CO2 [Moles/Vol] 24 mmol/L Normal 22-32 [facility] Comment on above: Performed By: #### C MP #### [facility] ([address] [place] [address] VIR Creatinine [Mass/Vol] 2.01 mg/dL High 0.70-1.20 [facility] Comment on above: Result Comment: METH OD TRACEABLE TO IDMS STANDARD Performed By: #### C MP #### [facility] ([address] [place] [address] VIR GFR/1.73 sq M.predicted among non-blacks MDRD (S/P/Bld) [Vol rate/Area] 33 mL/min/{1.73_m2} Low >=60 [facility] Comment on above: Result Comment: eGFR not reported due to non-numeric value for Creatinine. Reported eGFR is based on the CKD-EPI 1 equation that does not use a race coefficient. Performed By: #### C MP #### [facility] ([address] [place] [address] VIR Glucose [Mass/Vol] 97 mg/dL Normal 65-99 [facility] Comment on above: Performed By: #### C MP #### [facility] ([address] [place] [address] VIR Potassium [Moles/Vol] 4.0 mmol/L Normal 3.5-5.0 [facility] Comment on above: Performed By: #### C MP #### [facility] ([facility]) [address] [place] [address] VIR Protein [Mass/Vol] 6.9 g/dL Normal 6.0-8.0 [facility] Comment on above: Performed By: #### C MP #### [facility] ([facility]) [address] [place], [place] [address] [address] VIR Sodium [Moles/Vol] 135 mmol/L Normal 134-146 [facility] Comment on above: Performed By: #### C MP #### [facility] ([address] [place] [address] VIR Urea nitrogen [Mass/Vol] 47 mg/dL High 5-27 [facility] Comment on above: Performed By: #### C MP #### [facility] ([address] [place] [address] VIR B-TYPE NATRIURETIC PEPTIDEon 01-18-2025 Natriuretic peptide B (Bld) [Mass/Vol] 2720 pg/mL High <=100 [facility] Comment on above: Performed By: #### B BATTERY TEST ENGINEER #### [facility] ([address] [place] [address] VIR COMPREHENSIVE METABOLIC PANE [facility] 01-18-2025 Albumin [Mass/Vol] 3.5 g/dL Normal 3.2-5.3 [facility] Comment on above: Performed By: #### C MP #### [facility] ([address] [place] [address] VIR ALP [Catalytic activity/Vol] 118 U/L Normal 39-130 [facility] Comment on above: Performed By: #### C MP #### [facility] ([facility]) [address] [place], [place] [address] [address] VIR ALT [Catalytic activity/Vol] 12 U/L Normal <=40 [facility] Comment on above: Performed By: #### C MP #### [facility] ([place] [address] [place] [address] VIR Anion gap [Moles/Vol] 9 mmol/L Normal 5-15 [facility] Comment on above: Performed By: #### C MP #### [facility] ([place] [address] [place] [address] VIR AST [Catalytic activity/Vol] 24 U/L Normal <=41 [facility] Comment on above: Performed By: #### C MP #### [facility] ([place] [address] [place] [address] VIR Bilirubin [Mass/Vol] 1.2 mg/dL Normal 0.3-1.2 [facility] Comment on above: Performed By: #### C MP #### [facility] ([address] [place] [address] VIR Calcium [Mass/Vol] 8.9 mg/dL Normal 8.5-10.5 [facility] Comment on above: Performed By: #### C MP #### [facility] ([address] [place] [address] VIR Chloride [Moles/Vol] 102 mmol/L Normal 98-109 [facility] Comment on above: Performed By: #### C MP #### [facility] ([place] [address] [place] [address] VIR CO2 [Moles/Vol] 23 mmol/L Normal 22-32 [facility] Comment on above: Performed By: #### C MP #### [facility] ([place] [address] [place] [address] VIR Creatinine [Mass/Vol] 2.03 mg/dL High 0.70-1.20 [facility] Comment on above: Result Comment: METH OD TRACEABLE TO IDMS STANDARD Performed By: #### C MP #### [facility] ([place] [address] [place] [address] VIR GFR/1.73 sq M.predicted among non-blacks MDRD (S/P/Bld) [Vol rate/Area] 32 mL/min/{1.73_m2} Low >=60 [facility] Comment on above: Result Comment: eGFR not reported due to non-numeric value for Creatinine. Reported eGFR is based on the CKD-EPI 2020 equation that does not use a race coefficient. Performed By: #### C MP #### [facility] ([facility]) [address] [place] [address] VIR Glucose [Mass/Vol] 93 mg/dL Normal 65-99 [facility] Comment on above: Performed By: #### C MP #### [facility] ([address] [place] [address] VIR Potassium [Moles/Vol] 3.9 mmol/L Normal 3.5-5.0 [facility] Comment on above: Performed By: #### C MP #### [facility] ([address] [place] [address] VIR Protein [Mass/Vol] 7.3 g/dL Normal 6.0-8.0 [facility] Comment on above: Performed By: #### C MP #### [facility] ([address] [place] [address] VIR Sodium [Moles/Vol] 134 mmol/L Normal 134-146 [facility] Comment on above: Performed By: #### C MP #### [facility] ([place] [address] [place] [address] VIR Urea nitrogen [Mass/Vol] 58 mg/dL High 5-27 [facility] Comment on above: Performed By: #### C MP #### [facility] ([place] [address] [place] [address] VIR LIPID PROFILEon 01-18-2025 Cholesterol [Mass/Vol] 144 mg/dL Low 150-200 [facility] Comment on above: Performed By: #### L IPR #### [facility] ([facility]) [address] [place] [address] VIR Cholesterol in HDL [Mass/Vol] 46 mg/dL Normal >39 [facility] Comment on above: Result Comment: HDL <40 mg/dL - High Risk HDL > or = 40mg/dL- Desirable HDL >60 mg/dL - Negative Risk Performed By: #### L IPR #### [facility] ([facility]) [address] [place] [address] VIR Cholesterol in LDL [Mass/Vol] 88 mg/dL Normal <130 [facility] Comment on above: Result Comment: LDL <100 mg/dL - Desirable LDL >160 mg/dL - High Risk Performed By: #### L IPR #### [facility] ([facility]) [address] [place] [address] VIR CHOLESTEROL:HDL 3.1 Normal 1.0-5.0 [facility] Comment on above: Performed By: #### L IPR #### [facility] ([facility]) [address] [place] [address] VIR Triglyceride [Mass/Vol] 51 mg/dL Normal 27-150 [facility] Comment on above: Performed By: #### L IPR #### [facility] ([facility]) [address] [place] [address] VIR VERY LOW LIPOPROTEIN 10 mg/dL Normal 0-30 [facility] Comment on above: Performed By: #### L IPR #### [facility] ([facility]) [address] [place] [address] VIR MAGNESIUMon 01-18-2025 Magnesium [Mass/Vol] 2.6 mg/dL Normal 1.8-2.6 [facility] Comment on above: Performed By: #### M G #### [facility] ([facility]) [address] [place] [address] VIR T3, FREEon 01-18-2025 Free T3 [Mass/Vol] 2.15 pg/mL Low 2.50-3.90 [facility] Comment on above: Performed By: #### F T3 #### [facility] ([facility]) [address] [place] [address] VIR THYROID PROFILE INCLUDES TSH FT4on 01-18-2025 Free T4 [Mass/Vol] 1.29 ng/dL Normal 0.61-1.60 [facility] Comment on above: Performed By: #### T HYR #### [facility] ([address] [address] VIR TSH 8.64 uIU/mL High 0.49-4.67 [facility] Comment on above: Performed By: #### T HYR #### [facility] ([address] [place] [address] VIR URIC ACIDon 01-18-2025 Urate [Mass/Vol] 11.4 mg/dL High 2.6-7.2 [facility] Comment on above: Performed By: #### U JÚNIOR #### [facility] ([address] [address] VIR VITAMIN D 25 HYDROXYon 01-18 VITAMIN D 25 HYD TOT 41.6 ng/mL Normal 30.0-100.0 [facility] Comment on above: Order Comment: Vitam in D status 25 [place] Vitamin D Deficiency <20 ng/mL Insufficiency 20-29 ng/mL Sufficiency 30-100 ng/mL Toxicity >100 ng/mL NOTE: A pediatric reference range has not been established by the electrical hardware engineer of this kit. The [place] [employer] recommends a Vitamin D level of = or >20ng/mL in infants and children. Performed By: #### V ITD #### [facility] ([facility]) [address] [place] [address] VIR CBC WITH AUTO DIFFERENTIALon 01-11-2025 BASOPHILS ABSOLUTE COUNT (10*3/UL) BY AUTOMATED COUNT 0.0 10*3/uL Normal [facility] Comment on above: Performed By: #### C BCA #### [facility] ([address] [address] VIR BASOPHILS RELATIVE PERCENT BY AUTOMATED COUNT 0.5 % Normal [facility] Comment on above: Performed By: #### C BCA #### [facility] ([address] [address] VIR CELLAVISION DIFFERENTIAL TYPE AUTOMATED DIFFERENTIAL Normal [facility] Comment on above: Performed By: #### C BCA #### [facility] ([address] [address] VIR Eosinophils (Bld) [#/Vol] 0.3 10*3/uL Normal [facility] Comment on above: Performed By: #### C BCA #### [facility] ([address] [address] VIR EOSINOPHILS RELATIVE PERCENT BY AUTOMATED COUNT 6.5 % Normal [facility] Comment on above: Performed By: #### C BCA #### [facility] ([address] [address] VIR Erythrocyte distribution width (RBC) [Ratio] 18.5 % High 11.5-15 [facility] Comment on above: Performed By: #### C BCA #### [facility] ([address] [address] VIR Hematocrit (Bld) [Volume fraction] 36.0 % Low 39-50 [facility] Comment on above: Performed By: #### C BCA #### [facility] ([address] [place] [address] VIR Hemoglobin (Bld) [Mass/Vol] 11.8 g/dL Low 13-17 [facility] Comment on above: Performed By: #### C BCA #### [facility] ([facility]) [address] [place] [address]. [place] [address] VIR LYMPHOCYTES ABSOLUTE COUNT (10*3/UL) BY AUTOMATED COUNT 1.1 10*3/uL Normal [facility] Comment on above: Performed By: #### C BCA #### [facility] ([facility]) [address] [place] [address]. [place] [address] VIR LYMPHOCYTES RELATIVE PERCENT BY AUTOMATED COUNT 21.6 % Normal [facility] Comment on above: Performed By: #### C BCA #### [facility] ([address] [place] [address] VIR MCH (RBC) [Entitic mass] 30.6 pg Normal 27-34 [facility] Comment on above: Performed By: #### C BCA #### [facility] ([address] [place] [address] VIR MCHC (RBC) [Mass/Vol] 32.9 g/dL Normal 32-36 [facility] Comment on above: Performed By: #### C BCA #### [facility] ([address] [place] [address] VIR MCV (RBC) [Entitic vol] 93 fL Normal 80-100 [facility] Comment on above: Performed By: #### C BCA #### [facility] ([address] [place] [address] VIR MONOCYTES ABSOLUTE COUNT (10*3/UL) BY AUTOMATED COUNT 0.6 10*3/uL Normal [facility] Comment on above: Performed By: #### C BCA #### [facility] ([address] [place] [address] VIR MONOCYTES RELATIVE PERCENT BY AUTOMATED COUNT 10.7 % Normal [facility] Comment on above: Performed By: #### C BCA #### [facility] ([address] [address] VIR NEUTROPHILS ABSOLUTE COUNT BY AUTOMATED COUNT 3.1 10*3/uL Normal [facility] Comment on above: Performed By: #### C BCA #### [facility] ([address] [address] VIR NEUTROPHILS RELATIVE PERCENT BY AUTOMATED COUNT 60.7 % Normal [facility] Comment on above: Performed By: #### C BCA #### [facility] ([address] [address] VIR Platelet mean volume (Bld) [Entitic vol] 8.5 fL Normal 7-12 [facility] Comment on above: Performed By: #### C BCA #### [facility] ([address] [address] VIR Platelets (Bld) [#/Vol] 148 10*3/uL Low 150-450 [facility] Comment on above: Performed By: #### C BCA #### [facility] ([address] [address] VIR RBC COUNT 3.87 X10E12/L Low 4.1-5.7 [facility] Comment on above: Performed By: #### C BCA #### [facility] ([address] [address] VIR WBC (Bld) [#/Vol] 5.2 10*3/uL Normal 4-11 [facility] Comment on above: Performed By: #### C BCA #### [facility] ([address] [address] VIR COMPREHENSIVE METABOLIC PANE Aldo 01-11-2025 Albumin [Mass/Vol] 3.4 g/dL Normal 3.2-5.3 [facility] Comment on above: Performed By: #### C MP #### [facility] ([address] [place] [address] VIR ALP [Catalytic activity/Vol] 126 U/L Normal 39-130 [facility] Comment on above: Performed By: #### C MP #### [facility] ([address] [place] [address] VIR ALT [Catalytic activity/Vol] 13 U/L Normal <=40 [facility] Comment on above: Performed By: #### C MP #### [facility] ([address] [place] [address] VIR Anion gap [Moles/Vol] 7 mmol/L Normal 5-15 [facility] Comment on above: Performed By: #### C MP #### [facility] ([address] [place] [address] VIR AST [Catalytic activity/Vol] 21 U/L Normal <=41 [facility] Comment on above: Performed By: #### C MP #### [facility] ([address] [place] [address] VIR Bilirubin [Mass/Vol] 0.9 mg/dL Normal 0.3-1.2 [facility] Comment on above: Performed By: #### C MP #### [facility] ([address] [place] [address] VIR Calcium [Mass/Vol] 8.7 mg/dL Normal 8.5-10.5 [facility] Comment on above: Performed By: #### C MP #### [facility] ([address] [place] [address] VIR Chloride [Moles/Vol] 103 mmol/L Normal 98-109 [facility] Comment on above: Performed By: #### C MP #### [facility] ([address] [place] [address] VIR CO2 [Moles/Vol] 26 mmol/L Normal 22-32 [facility] Comment on above: Performed By: #### C MP #### [facility] ([address] [place] [address] VIR Creatinine [Mass/Vol] 1.80 mg/dL High 0.70-1.20 [facility] Comment on above: Result Comment: METH OD TRACEABLE TO IDMS STANDARD Performed By: #### C MP #### [facility] ([address] [place] [address] VIR GFR/1.73 sq M.predicted among non-blacks MDRD (S/P/Bld) [Vol rate/Area] 37 mL/min/{1.73_m2} Low >=60 [facility] Comment on above: Result Comment: eGFR not reported due to non-numeric value for Creatinine. Reported eGFR is based on the CKD-EPI 2021 equation that does not use a race coefficient. Performed By: #### C MP #### [facility] ([address] [place] [address] VIR Glucose [Mass/Vol] 80 mg/dL Normal 65-99 [facility] Comment on above: Performed By: #### C MP #### [facility] ([address] [place] [address] VIR Potassium [Moles/Vol] 4.1 mmol/L Normal 3.5-5.0 [facility] Comment on above: Performed By: #### C MP #### [facility] ([address] [place] [address] VIR Protein [Mass/Vol] 7.3 g/dL Normal 6.0-8.0 [facility] Comment on above: Performed By: #### C MP #### [facility] ([address] [place] [address] VIR Sodium [Moles/Vol] 136 mmol/L Normal 134-146 [facility] Comment on above: Performed By: #### C MP #### [facility] [address] [address] VIR Urea nitrogen [Mass/Vol] 49 mg/dL High 5-27 [facility] Comment on above: Performed By: #### C MP #### [facility] [address] [address] VIR ECG COMPLETEon 12-08-2024 ECG COMPLETE Normal [facility] CNPNon 12-03-2024 CNPN Normal [facility] Comprehensive Metabolic Pane aldo 11-04-2024 Albumin [Mass/Vol] 3.4 g/dL Low 3.5 - 5.2 g/dL [facility] ALP [Catalytic activity/Vol] 119 U/L 40 - 129 U/L [facility] ALT [Catalytic activity/Vol] 10 U/L 10 - 50 U/L [facility] Anion gap [Moles/Vol] 11 mmol/L 9 - 16 mmol/L [facility] AST [Catalytic activity/Vol] 25 U/L 10 - 50 U/L [facility] Bilirubin [Mass/Vol] 0.6 mg/dL 0.0 - 1.2 mg/dL [facility] Calcium [Mass/Vol] 8.9 mg/dL 8.6 - 10. 4 mg/dL [facility] Chloride [Moles/Vol] 102 mmol/L 98 - 107 mmol/L [facility] CO2 [Moles/Vol] 26 mmol/L 20 - 31 mmol/L [facility] Creatinine [Mass/Vol] 2.1 mg/dL High 0.7 - 1.2 mg/dL [facility] Est, Glom Filt Rate 31 Low - PINF [facility] Comment on above: These results are not [...] [Mass/Vol] 77 mg/dL 74 - 99 mg/dL [facility] Interpretation and review of laboratory results Abnormal [facility] Potassium [Moles/Vol] 3.9 mmol/L 3.7 - 5.3 mmol/L [facility] Protein [Mass/Vol] 6.2 g/dL Low 6.6 - 8.7 g/dL [facility] Sodium [Moles/Vol] 139 mmol/L 136 - 145 mmol/L [facility] Urea nitrogen [Mass/Vol] 31 mg/dL High 8 - 23 mg/dL [facility] Comprehensive Metabolic Pane aldo 11-03-2024 Albumin [Mass/Vol] 3.2 g/dL Low 3.5 - 5.2 g/dL [facility] ALP [Catalytic activity/Vol] 107 U/L 40 - 129 U/L [facility] ALT [Catalytic activity/Vol] 11 U/L 10 - 50 U/L [facility] Anion gap [Moles/Vol] 10 mmol/L 9 - 16 mmol/L [facility] AST [Catalytic activity/Vol] 23 U/L 10 - 50 U/L [facility] Bilirubin [Mass/Vol] 0.6 mg/dL 0.0 - 1.2 mg/dL [facility] Calcium [Mass/Vol] 8.7 mg/dL 8.6 - 10. 4 mg/dL [facility] Chloride [Moles/Vol] 103 mmol/L 98 - 107 mmol/L [facility] CO2 [Moles/Vol] 26 mmol/L 20 - 31 mmol/L [facility] Creatinine [Mass/Vol] 2.1 mg/dL High 0.7 - 1.2 mg/dL [facility] Est, Glom Filt Rate 31 Low - PINF [facility] Comment on above: These results are not [...] 109 mg/dL High 74 - 99 mg/dL [facility] Interpretation and review of laboratory results Abnormal [facility] Potassium [Moles/Vol] 4.3 mmol/L 3.7 - 5.3 mmol/L [facility] Protein [Mass/Vol] 6.0 g/dL Low 6.6 - 8.7 g/dL [facility] Sodium [Moles/Vol] 139 mmol/L 136 - 145 mmol/L [facility] Urea nitrogen [Mass/Vol] 31 mg/dL High 8 - 23 mg/dL [facility] CBCon 11-02-2024 Erythrocyte distribution width (RBC) [Ratio] 23.0 % High 11.5 - 14.9 % [facility] Hematocrit (Bld) [Volume fraction] 35.8 % Low 41 - 53 % [facility] Hemoglobin (Bld) [Mass/Vol] 11.8 g/dL Low 13.5 - 17.5 g/dL [facility] Interpretation and review of laboratory results Abnormal [facility] MCH (RBC) [Entitic mass] 29.8 pg 26 - 34 pg [facility] MCHC (RBC) [Mass/Vol] 32.9 g/dL 31 - 37 g/dL [facility] MCV (RBC) [Entitic vol] 90.7 fL 80 - 100 fL [facility] Platelet mean volume (Bld) [Entitic vol] 8.4 fL 6.0 - 12.0 fL [facility] Platelets (Bld) [#/Vol] 111 10*3/uL Low [facility] RBC (Bld) [#/Vol] 3.95 10*6/uL Low 4.5 - 5.9 m/uL [facility] WBC other (Bld) [#/Vol] 3.7 [facility] Comprehensive Metabolic Pane aldo 11-02-2024 Albumin [Mass/Vol] 3.4 g/dL Low 3.5 - 5.2 g/dL [facility] ALP [Catalytic activity/Vol] 119 U/L 40 - 129 U/L [facility] ALT [Catalytic activity/Vol] 11 U/L 10 - 50 U/L [facility] Anion gap [Moles/Vol] 11 mmol/L 9 - 16 mmol/L [facility] AST [Catalytic activity/Vol] 28 U/L 10 - 50 U/L [facility] Bilirubin [Mass/Vol] 0.7 mg/dL 0.0 - 1.2 mg/dL [facility] Calcium [Mass/Vol] 8.8 mg/dL 8.6 - 10. 4 mg/dL [facility] Chloride [Moles/Vol] 103 mmol/L 98 - 107 mmol/L [facility] CO2 [Moles/Vol] 27 mmol/L 20 - 31 mmol/L [facility] Creatinine [Mass/Vol] 2.1 mg/dL High 0.7 - 1.2 mg/dL [facility] Est, Glom Filt Rate 31 Low - PINF [facility] Comment on above: These results are not [...] [Mass/Vol] 79 mg/dL 74 - 99 mg/dL [facility] Interpretation and review of laboratory results Abnormal [facility] Potassium [Moles/Vol] 3.8 mmol/L 3.7 - 5.3 mmol/L [facility] Protein [Mass/Vol] 6.3 g/dL Low 6.6 - 8.7 g/dL [facility] Sodium [Moles/Vol] 141 mmol/L 136 - 145 mmol/L [facility] Urea nitrogen [Mass/Vol] 31 mg/dL High 8 - 23 mg/dL [facility] Magnesiumon 11-02-2024 Magnesium [Mass/Vol] 2.0 mg/dL 1.6 - 2.4 mg/dL [facility] No Panel Informationon 11-02 [facility] Phosphoruson 11-02-2024 Phosphate [Mass/Vol] 2.8 mg/dL 2.5 - 4.5 mg/dL [facility] Comprehensive Metabolic Pane aldo 11-01-2024 Albumin [Mass/Vol] 3.3 g/dL Low 3.5 - 5.2 g/dL [facility] ALP [Catalytic activity/Vol] 109 U/L 40 - 129 U/L [facility] ALT [Catalytic activity/Vol] 12 U/L 10 - 50 U/L [facility] Anion gap [Moles/Vol] 10 mmol/L 9 - 16 mmol/L [facility] AST [Catalytic activity/Vol] 25 U/L 10 - 50 U/L [facility] Bilirubin [Mass/Vol] 0.7 mg/dL 0.0 - 1.2 mg/dL [facility] Calcium [Mass/Vol] 8.9 mg/dL 8.6 - 10. 4 mg/dL [facility] Chloride [Moles/Vol] 103 mmol/L 98 - 107 mmol/L [facility] CO2 [Moles/Vol] 27 mmol/L 20 - 31 mmol/L [facility] Creatinine [Mass/Vol] 2.1 mg/dL High 0.7 - 1.2 mg/dL [facility] Est, Glom Filt Rate 31 Low - PINF [facility] Comment on above: These results are not [...] [Mass/Vol] 80 mg/dL 74 - 99 mg/dL [facility] Interpretation and review of laboratory results Abnormal [facility] Potassium [Moles/Vol] 3.9 mmol/L 3.7 - 5.3 mmol/L [facility] Protein [Mass/Vol] 6.0 g/dL Low 6.6 - 8.7 g/dL [facility] Sodium [Moles/Vol] 140 mmol/L 136 - 145 mmol/L [facility] Urea nitrogen [Mass/Vol] 33 mg/dL High 8 - 23 mg/dL [facility] Comprehensive Metabolic Pane aldo 10-31-2024 Albumin [Mass/Vol] 3.0 g/dL Low 3.5 - 5.2 g/dL [facility] ALP [Catalytic activity/Vol] 110 U/L 40 - 129 U/L [facility] ALT [Catalytic activity/Vol] 11 U/L 10 - 50 U/L [facility] Anion gap [Moles/Vol] 11 mmol/L 9 - 16 mmol/L [facility] AST [Catalytic activity/Vol] 28 U/L 10 - 50 U/L [facility] Bilirubin [Mass/Vol] 0.7 mg/dL 0.0 - 1.2 mg/dL [facility] Calcium [Mass/Vol] 8.7 mg/dL 8.6 - 10. 4 mg/dL [facility] Chloride [Moles/Vol] 101 mmol/L 98 - 107 mmol/L [facility] CO2 [Moles/Vol] 25 mmol/L 20 - 31 mmol/L [facility] Creatinine [Mass/Vol] 2.2 mg/dL High 0.7 - 1.2 mg/dL [facility] Est, Glom Filt Rate 29 Low - PINF [facility] Comment on above: These results are not [...] 114 mg/dL High 74 - 99 mg/dL [facility] Interpretation and review of laboratory results Abnormal [facility] Potassium [Moles/Vol] 4.0 mmol/L 3.7 - 5.3 mmol/L [facility] Comment on above: Specimen hemolysis h as exceeded the interference as defined by Karoline. Value may be falsely increased. Suggest recollection if clinically indicated. Protein [Mass/Vol] 5.8 g/dL Low 6.6 - 8.7 g/dL [facility] Sodium [Moles/Vol] 137 mmol/L 136 - 145 mmol/L [facility] Urea nitrogen [Mass/Vol] 35 mg/dL High 8 - 23 mg/dL [facility] Comprehensive Metabolic Pane aldo 10-30-2024 Albumin [Mass/Vol] 3.2 g/dL Low 3.5 - 5.2 g/dL [facility] ALP [Catalytic activity/Vol] 112 U/L 40 - 129 U/L [facility] ALT [Catalytic activity/Vol] 12 U/L 10 - 50 U/L [facility] Anion gap [Moles/Vol] 14 mmol/L 9 - 16 mmol/L [facility] AST [Catalytic activity/Vol] 25 U/L 10 - 50 U/L [facility] Bilirubin [Mass/Vol] 0.7 mg/dL 0.0 - 1.2 mg/dL [facility] Calcium [Mass/Vol] 8.7 mg/dL 8.6 - 10. 4 mg/dL [facility] Chloride [Moles/Vol] 102 mmol/L 98 - 107 mmol/L [facility] CO2 [Moles/Vol] 22 mmol/L 20 - 31 mmol/L [facility] Creatinine [Mass/Vol] 2.2 mg/dL High 0.7 - 1.2 mg/dL [facility] Est, Glom Filt Rate 29 Low - PINF [facility] Comment on above: These results are not [...] [Mass/Vol] 78 mg/dL 74 - 99 mg/dL [facility] Interpretation and review of laboratory results Abnormal [facility] Potassium [Moles/Vol] 4.0 mmol/L 3.7 - 5.3 mmol/L [facility] Comment on above: Specimen hemolysis h as exceeded the interference as defined by Karoline. Value may be falsely increased. Suggest recollection if clinically indicated. Protein [Mass/Vol] 5.8 g/dL Low 6.6 - 8.7 g/dL [facility] Sodium [Moles/Vol] 138 mmol/L 136 - 145 mmol/L [facility] Urea nitrogen [Mass/Vol] 36 mg/dL High 8 - 23 mg/dL [facility] US ABDOMEN LIMITEDon 025 US ABDOMEN LIMITED EXAMINATION: LIMITED ABDOMINAL ULTRASOUND 10/30/2024 1:28 pm COMPARISON: 10/21/2024 HISTORY: ORDERING SYSTEM PROVIDED HISTORY: ascites TECHNOLOGIST PROVIDED HISTORY: Reason for Exam:->rule out ascites Height:182.9cm Weight:77.111kg ascites FINDINGS: A limited scan of the four quadrants of the abdomen was performed to evaluate for ascites. There is a [id number] amount of abdominal ascites. IMPRESSION: Mild to moderate intra-abdominal ascites. Interpreted by: Lewis Suazo MD Signed by: Lewis Suazo MD 10/30/24 Final result Normal [facility] US Abdomen limitedon 025 Mild to moderate intra-abdominal ascites. [facility] CONSOLIDATED EXAMINATION: LIMITED ABDOMINAL ULTRASOUND 10/30/2024 1:28 pm COMPARISON: 10/21/2024 HISTORY: ORDERING SYSTEM PROVIDED HISTORY: ascites TECHNOLOGIST PROVIDED HISTORY: Reason for Exam:->rule out ascites Height:182.9cm Weight:77.111kg ascites FINDINGS: A limited scan of the four quadrants of the abdomen was performed to evaluate for ascites. There is a [id number] amount of abdominal ascites. [facility] Lewis Suazo MD - 10/30/2024 EXAMINATION: LIMITED ABDOMINAL ULTRASOUND 10/30/2024 1:28 pm COMPARISON: 10/21/2024 HISTORY: ORDERING SYSTEM PROVIDED HISTORY: ascites TECHNOLOGIST PROVIDED HISTORY: Reason for Exam:->rule out ascites Height:182.9cm Weight:77.111kg ascites FINDINGS: A limited scan of the four quadrants of the abdomen was performed to evaluate for ascites. There is a [id number] amount of abdominal ascites. IMPRESSION: Mild to moderate intra-abdominal ascites. [facility] Radiology Study observation (narrative) [facility] US Abdomen limitedOrdered By : Lewis Suazo on 10-30-2024 [facility] Work Phone: Comprehensive Metabolic Pane aldo 10-29-2024 Albumin [Mass/Vol] 3.4 g/dL Low 3.5 - 5.2 g/dL [facility] ALP [Catalytic activity/Vol] 121 U/L 40 - 129 U/L [facility] ALT [Catalytic activity/Vol] 14 U/L 10 - 50 U/L [facility] Anion gap [Moles/Vol] 12 mmol/L 9 - 16 mmol/L [facility] AST [Catalytic activity/Vol] 27 U/L 10 - 50 U/L [facility] Bilirubin [Mass/Vol] 0.8 mg/dL 0.0 - 1.2 mg/dL [facility] Calcium [Mass/Vol] 8.8 mg/dL 8.6 - 10. 4 mg/dL [facility] Chloride [Moles/Vol] 101 mmol/L 98 - 107 mmol/L [facility] CO2 [Moles/Vol] 26 mmol/L 20 - 31 mmol/L [facility] Creatinine [Mass/Vol] 2.2 mg/dL High 0.7 - 1.2 mg/dL [facility] Est, Glom Filt Rate 29 Low - PINF [facility] Comment on above: These results are not [...] [Mass/Vol] 78 mg/dL 74 - 99 mg/dL [facility] Interpretation and review of laboratory results Abnormal [facility] Potassium [Moles/Vol] 3.9 mmol/L 3.7 - 5.3 mmol/L [facility] Protein [Mass/Vol] 6.3 g/dL Low 6.6 - 8.7 g/dL [facility] Sodium [Moles/Vol] 139 mmol/L 136 - 145 mmol/L [facility] Urea nitrogen [Mass/Vol] 36 mg/dL High 8 - 23 mg/dL [facility] Telephoneon 10-29-2024 Telephone Normal [facility] Comprehensive Metabolic Pane aldo 10-28-2024 Albumin [Mass/Vol] 3.5 g/dL 3.5 - 5.2 g/dL [facility] ALP [Catalytic activity/Vol] 125 U/L 40 - 129 U/L [facility] ALT [Catalytic activity/Vol] 17 U/L 10 - 50 U/L [facility] Anion gap [Moles/Vol] 10 mmol/L 9 - 16 mmol/L [facility] AST [Catalytic activity/Vol] 26 U/L 10 - 50 U/L [facility] Bilirubin [Mass/Vol] 0.7 mg/dL 0.0 - 1.2 mg/dL [facility] Calcium [Mass/Vol] 8.9 mg/dL 8.6 - 10. 4 mg/dL [facility] Chloride [Moles/Vol] 101 mmol/L 98 - 107 mmol/L [facility] CO2 [Moles/Vol] 27 mmol/L 20 - 31 mmol/L [facility] Creatinine [Mass/Vol] 2.3 mg/dL High 0.7 - 1.2 mg/dL [facility] Est, Glom Filt Rate 28 Low - PINF [facility] Comment on above: These results are not [...] [Mass/Vol] 87 mg/dL 74 - 99 mg/dL [facility] Interpretation and review of laboratory results Abnormal [facility] Potassium [Moles/Vol] 3.7 mmol/L 3.7 - 5.3 mmol/L [facility] Protein [Mass/Vol] 6.3 g/dL Low 6.6 - 8.7 g/dL [facility] Sodium [Moles/Vol] 138 mmol/L 136 - 145 mmol/L [facility] Urea nitrogen [Mass/Vol] 36 mg/dL High 8 - 23 mg/dL [facility] CBC with Auto Differentialon 10-27-2024 Basophils (Bld) [#/Vol] 0.04 10*3/uL [facility] Basophils/100 WBC (Bld) 1 % 0 - 2 % [facility] Eosinophils (Bld) [#/Vol] 0.15 10*3/uL [facility] Eosinophils/100 WBC (Bld) 4 % 0 - 4 % [facility] Erythrocyte distribution width (RBC) [Ratio] 24.2 % High 11.5 - 14.9 % [facility] Hematocrit (Bld) [Volume fraction] 35.2 % Low 41 - 53 % [facility] Hemoglobin (Bld) [Mass/Vol] 11.2 g/dL Low 13.5 - 17.5 g/dL [facility] Interpretation and review of laboratory results Abnormal [facility] Lymphocytes/100 WBC (Bld) 20 % Low 24 - 44 % [facility] Lymphocytes/100 WBC (Bld) 0.74 % Low [facility] MCH (RBC) [Entitic mass] 29.0 pg 26 - 34 pg [facility] MCHC (RBC) [Mass/Vol] 31.8 g/dL 31 - 37 g/dL [facility] MCV (RBC) [Entitic vol] 91.2 fL 80 - 100 fL [facility] Monocytes/100 WBC (Bld) 14 % High 1 - 7 % [facility] Monocytes/100 WBC (Bld) 0.52 % [facility] Morphology Chance (Bld) [Interp] ANISOCYTOSIS PRESENT [facility] Morphology Chance (Bld) [Interp] ACANTHOCYTES 1+ MICROCYTOSIS PRESENT [facility] Neutrophils/100 WBC (Bld) 61 % 36 - 66 % [facility] Platelet mean volume (Bld) [Entitic vol] 8.4 fL 6.0 - 12.0 fL [facility] Platelets (Bld) [#/Vol] 146 10*3/uL Low [facility] RBC (Bld) [#/Vol] 3.86 10*6/uL Low 4.5 - 5.9 m/uL [facility] Segmented neutrophils/100 WBC (Bld) 2.25 % [facility] WBC other (Bld) [#/Vol] 3.7 [facility] Comprehensive Metabolic Pane aldo 10-27-2024 Albumin [Mass/Vol] 3.7 g/dL 3.5 - 5.2 g/dL [facility] ALP [Catalytic activity/Vol] 117 U/L 40 - 129 U/L [facility] ALT [Catalytic activity/Vol] 19 U/L 10 - 50 U/L [facility] Anion gap [Moles/Vol] 11 mmol/L 9 - 16 mmol/L [facility] AST [Catalytic activity/Vol] 26 U/L 10 - 50 U/L [facility] Bilirubin [Mass/Vol] 0.8 mg/dL 0.0 - 1.2 mg/dL [facility] Calcium [Mass/Vol] 8.7 mg/dL 8.6 - 10. 4 mg/dL [facility] Chloride [Moles/Vol] 101 mmol/L 98 - 107 mmol/L [facility] CO2 [Moles/Vol] 27 mmol/L 20 - 31 mmol/L [facility] Creatinine [Mass/Vol] 2.3 mg/dL High 0.7 - 1.2 mg/dL [facility] Michelle Mathewst Rate 28 Low - PINF [facility] Comment on above: These results are not [...] [Mass/Vol] 85 mg/dL 74 - 99 mg/dL [facility] Interpretation and review of laboratory results Abnormal [facility] Potassium [Moles/Vol] 4.0 mmol/L 3.7 - 5.3 mmol/L [facility] Protein [Mass/Vol] 6.5 g/dL Low 6.6 - 8.7 g/dL [facility] Sodium [Moles/Vol] 139 mmol/L 136 - 145 mmol/L [facility] Urea nitrogen [Mass/Vol] 33 mg/dL High 8 - 23 mg/dL [facility] Albumin [Mass/Vol] 3.6 g/dL 3.5 - 5.2 g/dL [facility] ALP [Catalytic activity/Vol] 124 U/L 40 - 129 U/L [facility] ALT [Catalytic activity/Vol] 21 U/L 10 - 50 U/L [facility] Anion gap [Moles/Vol] 11 mmol/L 9 - 16 mmol/L [facility] AST [Catalytic activity/Vol] 26 U/L 10 - 50 U/L [facility] Bilirubin [Mass/Vol] 0.8 mg/dL 0.0 - 1.2 mg/dL [facility] Calcium [Mass/Vol] 9.2 mg/dL 8.6 - 10. 4 mg/dL [facility] Chloride [Moles/Vol] 102 mmol/L 98 - 107 mmol/L [facility] CO2 [Moles/Vol] 29 mmol/L 20 - 31 mmol/L [facility] Creatinine [Mass/Vol] 2.4 mg/dL High 0.7 - 1.2 mg/dL [facility] Michelle Mathews Filt Rate 26 Low - PINF [facility] Comment on above: These results are not [...] [Mass/Vol] 84 mg/dL 74 - 99 mg/dL [facility] Interpretation and review of laboratory results Abnormal [facility] Potassium [Moles/Vol] 3.9 mmol/L 3.7 - 5.3 mmol/L [facility] Protein [Mass/Vol] 6.4 g/dL Low 6.6 - 8.7 g/dL [facility] Sodium [Moles/Vol] 142 mmol/L 136 - 145 mmol/L [facility] Urea nitrogen [Mass/Vol] 33 mg/dL High 8 - 23 mg/dL [facility] Magnesiumon 10-27-2024 Magnesium [Mass/Vol] 2.3 mg/dL 1.6 - 2.4 mg/dL [facility] No Panel Informationon 10-27 [facility] Phosphoruson 10-27-2024 Phosphate [Mass/Vol] 3.0 mg/dL 2.5 - 4.5 mg/dL [facility] Portable XR Chest AP single viewon 10-26-2024 Stable size of a sma ll to moderate left pleural effusion with associated atelectasis. [facility] RIS CONSOLIDATED EXAMINATION: ONE XRAY VIEW [...] moderate left pleural effusion with associated atelectasis. [facility] Radiology Study observation (narrative) [facility] [employer] Portable XR Chest AP single viewOrdered By: Raymond Minaya on 10-26-2024 [facility] [employer] Work Phone: XR CHEST PORTABLEon 10-26-19 XR [...] Raymond Minaya MD 10/26/24 Final result Normal [facility] Comprehensive Metabolic Pane aldo 10-25-2024 Albumin [Mass/Vol] 3.6 g/dL 3.5 - 5.2 g/dL [facility] ALP [Catalytic activity/Vol] 121 U/L 40 - 129 U/L [facility] ALT [Catalytic activity/Vol] 21 U/L 10 - 50 U/L [facility] Anion gap [Moles/Vol] 12 mmol/L 9 - 16 mmol/L [facility] AST [Catalytic activity/Vol] 29 U/L 10 - 50 U/L [facility] Bilirubin [Mass/Vol] 0.9 mg/dL 0.0 - 1.2 mg/dL [facility] Calcium [Mass/Vol] 9.3 mg/dL 8.6 - 10. 4 mg/dL [facility] Chloride [Moles/Vol] 101 mmol/L 98 - 107 mmol/L [facility] CO2 [Moles/Vol] 24 mmol/L 20 - 31 mmol/L [facility] Creatinine [Mass/Vol] 2.2 mg/dL High 0.7 - 1.2 mg/dL [facility] Est, Glom Filt Rate 29 Low - PINF [facility] Comment on above: These results are not [...] [Mass/Vol] 92 mg/dL 74 - 99 mg/dL [facility] Potassium [Moles/Vol] 4.7 mmol/L 3.7 - 5.3 mmol/L [facility] Comment on above: Specimen hemolysis h as exceeded the interference as defined by Karoline. Value may be falsely increased. Suggest recollection if clinically indicated. Protein [Mass/Vol] 6.5 g/dL Low 6.6 - 8.7 g/dL [facility] Sodium [Moles/Vol] 137 mmol/L 136 - 145 mmol/L [facility] Urea nitrogen [Mass/Vol] 33 mg/dL High 8 - 23 mg/dL [facility] Magnesiumon 10-25-2024 Magnesium [Mass/Vol] 2.5 mg/dL High 1.6 - 2.4 mg/dL [facility] No Panel Informationon 10-25 Interpretation and review of laboratory results Abnormal [facility] Comprehensive Metabolic Pane aldo 10-24-2024 Albumin [Mass/Vol] 3.6 g/dL 3.5 - 5.2 g/dL [facility] ALP [Catalytic activity/Vol] 123 U/L 40 - 129 U/L [facility] ALT [Catalytic activity/Vol] 25 U/L 10 - 50 U/L [facility] Anion gap [Moles/Vol] 12 mmol/L 9 - 16 mmol/L [facility] AST [Catalytic activity/Vol] 24 U/L 10 - 50 U/L [facility] Bilirubin [Mass/Vol] 0.7 mg/dL 0.0 - 1.2 mg/dL [facility] Calcium [Mass/Vol] 9.0 mg/dL 8.6 - 10. 4 mg/dL [facility] Chloride [Moles/Vol] 99 mmol/L 98 - 107 mmol/L [facility] CO2 [Moles/Vol] 29 mmol/L 20 - 31 mmol/L [facility] Creatinine [Mass/Vol] 2.2 mg/dL High 0.7 - 1.2 mg/dL [facility] Est, Glom Filt Rate 29 Low - PINF [facility] Comment on above: These results are not [...] [Mass/Vol] 81 mg/dL 74 - 99 mg/dL [facility] Interpretation and review of laboratory results Abnormal [facility] Potassium [Moles/Vol] 3.6 mmol/L Low 3.7 - 5.3 mmol/L [facility] Protein [Mass/Vol] 6.3 g/dL Low 6.6 - 8.7 g/dL [facility] Sodium [Moles/Vol] 140 mmol/L 136 - 145 mmol/L [facility] Urea nitrogen [Mass/Vol] 34 mg/dL High 8 - 23 mg/dL [facility] Portable XR Chest AP single viewon 10-24-2024 No significant inter verenice change in left pleural effusion. [facility] RIS CONSOLIDATED EXAMINATION: ONE XRAY VIEW OF [...] Stable cardiac silhouette. Osseous structures are stable. [facility] RIS CONSOLIDATED Mary Kim MD - 10/24/2024 [...] significant interval change in left pleural effusion. [facility] Radiology Study observation (narrative) [facility] Portable XR Chest AP single viewOrdered By: Mary Kim on 10-24-2024 [facility] Work Phone: XR CHEST PORTABLEon 10-24-19 XR [...] Mary Kim MD 10/24/24 Final result Normal [facility] Comprehensive Metabolic Pane aldo 10-23-2024 Albumin [Mass/Vol] 3.6 g/dL 3.5 - 5.2 g/dL [facility] ALP [Catalytic activity/Vol] 124 U/L 40 - 129 U/L [facility] ALT [Catalytic activity/Vol] 24 U/L 10 - 50 U/L [facility] Anion gap [Moles/Vol] 8 mmol/L Low 9 - 16 mmol/L [facility] AST [Catalytic activity/Vol] 24 U/L 10 - 50 U/L [facility] Bilirubin [Mass/Vol] 0.8 mg/dL 0.0 - 1.2 mg/dL [facility] Calcium [Mass/Vol] 9.0 mg/dL 8.6 - 10. 4 mg/dL [facility] Chloride [Moles/Vol] 102 mmol/L 98 - 107 mmol/L [facility] CO2 [Moles/Vol] 30 mmol/L 20 - 31 mmol/L [facility] Creatinine [Mass/Vol] 2.2 mg/dL High 0.7 - 1.2 mg/dL [facility] Est, Glom Filt Rate 29 Low - PINF [facility] Comment on above: These results are not [...] [Mass/Vol] 94 mg/dL 74 - 99 mg/dL [facility] Interpretation and review of laboratory results Abnormal [facility] Potassium [Moles/Vol] 3.9 mmol/L 3.7 - 5.3 mmol/L [facility] Protein [Mass/Vol] 6.7 g/dL 6.6 - 8.7 g/dL [facility] Sodium [Moles/Vol] 140 mmol/L 136 - 145 mmol/L [facility] Urea nitrogen [Mass/Vol] 34 mg/dL High 8 - 23 mg/dL [facility] XR CHEST 1 VIEWon 10-23-2024 XR [...] Lauren Felder MD 10/23/24 Final result Normal [facility] XR Chest Single viewon 10-23 1. Moderate [...] The right lung is clear. [facility] RIS Lauren Dean MD - 10/23/2024 EXAMINATION: ONE XRAY VIEW [...] consolidative changes. 2. Cardiomegaly and perihilar congestion. [facility] Radiology Study observation (narrative) [facility] XR Chest Single viewOrdered By: Lauren Felder on 10-23-2024 [facility] Work Phone: Comprehensive Metabolic Pane aldo 10-22-2024 Albumin [Mass/Vol] 3.7 g/dL 3.5 - 5.2 g/dL [facility] ALP [Catalytic activity/Vol] 135 U/L High 40 - 129 U/L [facility] ALT [Catalytic activity/Vol] 33 U/L 10 - 50 U/L [facility] Anion gap [Moles/Vol] 10 mmol/L 9 - 16 mmol/L [facility] AST [Catalytic activity/Vol] 32 U/L 10 - 50 U/L [facility] Bilirubin [Mass/Vol] 0.8 mg/dL 0.0 - 1.2 mg/dL [facility] Calcium [Mass/Vol] 9.0 mg/dL 8.6 - 10. 4 mg/dL [facility] Chloride [Moles/Vol] 102 mmol/L 98 - 107 mmol/L [facility] CO2 [Moles/Vol] 29 mmol/L 20 - 31 mmol/L [facility] Creatinine [Mass/Vol] 2.1 mg/dL High 0.7 - 1.2 mg/dL [facility] Michelle Mathewst Rate 31 Low - PINF [facility] Comment on above: These results are not [...] [Mass/Vol] 84 mg/dL 74 - 99 mg/dL [facility] Interpretation and review of laboratory results Abnormal [facility] Potassium [Moles/Vol] 3.7 mmol/L 3.7 - 5.3 mmol/L [facility] Protein [Mass/Vol] 6.5 g/dL Low 6.6 - 8.7 g/dL [facility] Sodium [Moles/Vol] 141 mmol/L 136 - 145 mmol/L [facility] Urea nitrogen [Mass/Vol] 35 mg/dL High 8 - 23 mg/dL [facility] Comprehensive Metabolic Pane aldo 10-21-2024 Albumin [Mass/Vol] 3.6 g/dL 3.5 - 5.2 g/dL [facility] ALP [Catalytic activity/Vol] 124 U/L 40 - 129 U/L [facility] ALT [Catalytic activity/Vol] 31 U/L 10 - 50 U/L [facility] Anion gap [Moles/Vol] 12 mmol/L 9 - 16 mmol/L [facility] AST [Catalytic activity/Vol] 29 U/L 10 - 50 U/L [facility] Bilirubin [Mass/Vol] 0.8 mg/dL 0.0 - 1.2 mg/dL [facility] Calcium [Mass/Vol] 8.9 mg/dL 8.6 - 10. 4 mg/dL [facility] Chloride [Moles/Vol] 101 mmol/L 98 - 107 mmol/L [facility] CO2 [Moles/Vol] 25 mmol/L 20 - 31 mmol/L [facility] Creatinine [Mass/Vol] 2.1 mg/dL High 0.7 - 1.2 mg/dL [facility] Michelle Mathews Rate 31 Low - PINF [facility] Comment on above: These results are not [...] [Mass/Vol] 91 mg/dL 74 - 99 mg/dL [facility] Interpretation and review of laboratory results Abnormal [facility] Potassium [Moles/Vol] 4.1 mmol/L 3.7 - 5.3 mmol/L [facility] Comment on above: Specimen hemolysis h as exceeded the interference as defined by Karoline. Value may be falsely increased. Suggest recollection if clinically indicated. Protein [Mass/Vol] 6.4 g/dL Low 6.6 - 8.7 g/dL [facility] Sodium [Moles/Vol] 138 mmol/L 136 - 145 mmol/L [facility] Urea nitrogen [Mass/Vol] 37 mg/dL High 8 - 23 mg/dL [facility] US ABDOMEN LIMITEDon 025 US ABDOMEN [...] Theo Latif DO 10/21/24 Final result Normal [facility] US Abdomen limitedon 025 Small volume ascites . [facility] RIS CONSOLIDATED EXAMINATION: Limited abdominal QUADRANT ULTRASOUND 10/21/2024 5:47 pm COMPARISON: None. HISTORY: ORDERING SYSTEM PROVIDED HISTORY: evaluate for ascites TECHNOLOGIST PROVIDED HISTORY: Reason for Exam:->Abdomen distended, weight gain. please evaluate for abdominal ascites, if significant we may need to get paracentesis. Height:182.9cm Weight:78.926kg evaluate for ascites FINDINGS: Free fluid in all 4 quadrants, small volume and greatest in the bilateral upper quadrants. [facility] RIS CONSOLIDATED Theo Latif DO - 10/21/2024 [...] bilateral upper quadrants. IMPRESSION: Small volume ascites. [facility]ative[facility] US Abdomen limitedOrdered By : Theo Latif on 10-21-2024 [facility] Work [facility]: Comprehensive Metabolic Pane aldo 10-20-2024 Albumin [Mass/Vol] 3.5 g/dL 3.5 - 5.2 g/dL [facility] ALP [Catalytic activity/Vol] 115 U/L 40 - 129 U/L [facility] ALT [Catalytic activity/Vol] 34 U/L 10 - 50 U/L [facility] [employer] Anion gap [Moles/Vol] 11 mmol/L 9 - 16 mmol/L [facility] AST [Catalytic activity/Vol] 27 U/L 10 - 50 U/L [facility] [employer] Bilirubin [Mass/Vol] 0.7 mg/dL 0.0 - 1.2 mg/dL [facility] [employer] Calcium [Mass/Vol] 9.1 mg/dL 8.6 - 10. 4 mg/dL [facility] Chloride [Moles/Vol] 100 mmol/L 98 - 107 mmol/L [facility] CO2 [Moles/Vol] 27 mmol/L 20 - 31 mmol/L [facility] Creatinine [Mass/Vol] 2.1 mg/dL High 0.7 - 1.2 mg/dL [facility] Est Glom Filt Rate 31 Low - PINF [facility] Comment on above: These results are not [...] [Mass/Vol] 91 mg/dL 74 - 99 mg/dL [facility] Interpretation and review of laboratory results Abnormal [facility] Potassium [Moles/Vol] 4.2 mmol/L 3.7 - 5.3 mmol/L [facility] Protein [Mass/Vol] 6.4 g/dL Low 6.6 - 8.7 g/dL [facility] Sodium [Moles/Vol] 138 mmol/L 136 - 145 mmol/L [facility] Urea nitrogen [Mass/Vol] 36 mg/dL High 8 - 23 mg/dL [facility] CBCon 10-19-2024 Erythrocyte distribution width (RBC) [Ratio] 25.1 % High 11.5 - 14.9 % [facility] Hematocrit (Bld) [Volume fraction] 32.8 % Low 41 - 53 % [facility] Hemoglobin (Bld) [Mass/Vol] 10.4 g/dL Low 13.5 - 17.5 g/dL [facility] Interpretation and review of laboratory results Abnormal [facility] MCH (RBC) [Entitic mass] 28.9 pg 26 - 34 pg [facility] MCHC (RBC) [Mass/Vol] 31.8 g/dL 31 - 37 g/dL [facility] MCV (RBC) [Entitic vol] 90.8 fL 80 - 100 fL [facility] Platelet mean volume (Bld) [Entitic vol] 8.4 fL 6.0 - 12.0 fL [facility] Platelets (Bld) [#/Vol] 163 10*3/uL [facility] RBC (Bld) [#/Vol] 3.61 10*6/uL Low 4.5 - 5.9 m/uL [facility] WBC other (Bld) [#/Vol] 3.8 [facility] Comprehensive Metabolic Pane aldo 10-19-2024 Albumin [Mass/Vol] 3.5 g/dL 3.5 - 5.2 g/dL [facility] ALP [Catalytic activity/Vol] 119 U/L 40 - 129 U/L [facility] ALT [Catalytic activity/Vol] 37 U/L 10 - 50 U/L [facility] Anion gap [Moles/Vol] 11 mmol/L 9 - 16 mmol/L [facility] AST [Catalytic activity/Vol] 27 U/L 10 - 50 U/L [facility] Bilirubin [Mass/Vol] 0.8 mg/dL 0.0 - 1.2 mg/dL [facility] Calcium [Mass/Vol] 8.9 mg/dL 8.6 - 10. 4 mg/dL [facility] Chloride [Moles/Vol] 100 mmol/L 98 - 107 mmol/L [facility] CO2 [Moles/Vol] 25 mmol/L 20 - 31 mmol/L [facility] Creatinine [Mass/Vol] 2.1 mg/dL High 0.7 - 1.2 mg/dL [facility] Est, Glom Filt Rate 31 Low - PINF [facility] Comment on above: These results are not [...] [Mass/Vol] 81 mg/dL 74 - 99 mg/dL [facility] Interpretation and review of laboratory results Abnormal [facility] Potassium [Moles/Vol] 4.2 mmol/L 3.7 - 5.3 mmol/L [facility] Protein [Mass/Vol] 6.3 g/dL Low 6.6 - 8.7 g/dL [facility] Sodium [Moles/Vol] 136 mmol/L 136 - 145 mmol/L [facility] Urea nitrogen [Mass/Vol] 34 mg/dL High 8 - 23 mg/dL [facility] Magnesiumon 10-19-2024 Magnesium [Mass/Vol] 2.2 mg/dL 1.6 - 2.4 mg/dL [facility] No Panel Informationon 10-19 [facility] Phosphoruson 10-19-2024 Phosphate [Mass/Vol] 2.6 mg/dL 2.5 - 4.5 mg/dL [facility] CBCon 10-18-2024 Erythrocyte distribution width (RBC) [Ratio] 24.8 % High 11.5 - 14.9 % [facility] Hematocrit (Bld) [Volume fraction] 34.3 % Low 41 - 53 % [facility] Hemoglobin (Bld) [Mass/Vol] 10.7 g/dL Low 13.5 - 17.5 g/dL [facility] Interpretation and review of laboratory results Abnormal [facility] MCH (RBC) [Entitic mass] 28.8 pg 26 - 34 pg [facility] MCHC (RBC) [Mass/Vol] 31.3 g/dL 31 - 37 g/dL [facility] MCV (RBC) [Entitic vol] 91.9 fL 80 - 100 fL [facility] Platelet mean volume (Bld) [Entitic vol] 8.0 fL 6.0 - 12.0 fL [facility] Platelets (Bld) [#/Vol] 176 10*3/uL [facility] RBC (Bld) [#/Vol] 3.73 10*6/uL Low 4.5 - 5.9 m/uL [facility] WBC other (Bld) [#/Vol] 3.7 [facility] Comprehensive Metabolic Pane aldo 10-18-2024 Albumin [Mass/Vol] 3.6 g/dL 3.5 - 5.2 g/dL [facility] ALP [Catalytic activity/Vol] 121 U/L 40 - 129 U/L [facility] ALT [Catalytic activity/Vol] 42 U/L 10 - 50 U/L [facility] Anion gap [Moles/Vol] 12 mmol/L 9 - 16 mmol/L [facility] AST [Catalytic activity/Vol] 25 U/L 10 - 50 U/L [facility] Bilirubin [Mass/Vol] 0.9 mg/dL 0.0 - 1.2 mg/dL [facility] Calcium [Mass/Vol] 8.6 mg/dL 8.6 - 10. 4 mg/dL [facility] Chloride [Moles/Vol] 102 mmol/L 98 - 107 mmol/L [facility] CO2 [Moles/Vol] 25 mmol/L 20 - 31 mmol/L [facility] Creatinine [Mass/Vol] 2.0 mg/dL High 0.7 - 1.2 mg/dL [facility] Est, Glom Filt Rate 33 Low - PINF [facility] Comment on above: These results are not [...] 112 mg/dL High 74 - 99 mg/dL [facility] Interpretation and review of laboratory results Abnormal [facility] Potassium [Moles/Vol] 4.2 mmol/L 3.7 - 5.3 mmol/L [facility] Protein [Mass/Vol] 6.3 g/dL Low 6.6 - 8.7 g/dL [facility] Sodium [Moles/Vol] 139 mmol/L 136 - 145 mmol/L [facility] Urea nitrogen [Mass/Vol] 34 mg/dL High 8 - 23 mg/dL [facility] Magnesiumon 10-18-2024 Magnesium [Mass/Vol] 2.2 mg/dL 1.6 - 2.4 mg/dL [facility] No Panel Informationon 10-18 [facility] CBC WITH AUTO DIFFERENTIALon 10-17-2024 Erythrocyte distribution width (RBC) [Ratio] 23.5 % High 11.5-15.0 [facility] Comment on above: Performed By: #### L [id number] ####[facility] ([facility])[address] [place] [address] ERYTHROCYTE MEAN CORPUSCULAR HEMOGLOBIN CONCENTRATION (G/DL) BY AUTOMATED 31.2 g/dL Low 32.0-35.0 [facility] Comment on above: Performed By: #### L [id number] ####[facility] ([facility])[address] [place] [address] Hematocrit (Bld) [Volume fraction] 32.4 % Low 39.0-55.0 [facility] Comment on above: Performed By: #### L [id number] ####[facility] ([facility])[address] [place] [address] Hemoglobin (Bld) [Mass/Vol] 10.1 g/dL Low 13.0-17.0 [facility] Comment on above: Performed By: #### L [id number] ####[facility] ([facility])[address] [place] [address] MCH (RBC) [Entitic mass] 28.5 pg Normal 27.0-33.0 [facility] Comment on above: Performed By: #### L [id number] ####[facility] ([facility])[address] [place] [address] MCV (RBC) [Entitic vol] 91.3 fL Normal 82.0-98.0 [facility] Comment on above: Performed By: #### L [id number] ####[facility] ([facility])[address] [place] [address] NRBC (PER 100 WBCS) BY AUTOMATED COUNT 0.0 % Normal 0 [facility] Comment on above: Performed By: #### L [id number] ####[facility] ([facility])[address] [place] [address] PLATELETS (10*3/UL) IN BLOOD AUTOMATED COUNT 174 10*3/uL Normal 150-400 [facility] Comment on above: Performed By: #### L [id number] ####[facility] ([facility])[address] [place] [address] RBC (Bld) [#/Vol] 3.55 10*6/uL Low 4.20-5.70 [facility] Comment on above: Performed By: #### L [id number] ####[facility] ([facility])[address] [place] [address] WBC (Bld) [#/Vol] 3.78 10*3/uL Low 4.00-10.60 [facility] Comment on above: Performed By: #### L [id number] ####[facility] ([facility])[address] [place] [address] COMPREHENSIVE METABOLIC PANE Aldo 10-17-2024 Albumin [Mass/Vol] 3.5 g/dL Normal 3.5-5.7 [facility] Comment on above: Performed By: #### L [id number] ####[facility] ([facility])[address] [place] [address] ALP [Catalytic activity/Vol] 102 U/L Normal 34-104 [facility] Comment on above: Performed By: #### L [id number] ####[facility] ([facility])[address] [place] [address] ALT [Catalytic activity/Vol] 29 U/L Normal 7-52 [facility] Comment on above: Performed By: #### L [id number] ####[facility] ([facility] [place] [address] Anion gap [Moles/Vol] 9 mmol/L Normal 7-20 [facility] Comment on above: Performed By: #### L [id number] ####[facility] ([facility])[address] [place] [address] AST [Catalytic activity/Vol] 16 U/L Normal 13-39 [facility] Comment on above: Performed By: #### L [id number] ####[facility] ([facility] [place] [address] Bilirubin [Mass/Vol] 1.2 mg/dL High 0.3-1.0 [facility] Comment on above: Performed By: #### L [id number] ####[facility] ([facility] [place] [address] Calcium [Mass/Vol] 8.8 mg/dL Normal 8.6-10.3 [facility] Comment on above: Performed By: #### L [id number] ####[facility] ([facility] [place] [address] Chloride [Moles/Vol] 101 mmol/L Normal 98-107 [facility] Comment on above: Performed By: #### L [id number] ####[facility] ([facility])[address] [place] [address] CO2 [Moles/Vol] 30 mmol/L Normal 21-31 [facility] Comment on above: Performed By: #### L [id number] ####[facility] ([facility])[address] [place] [address] Creatinine [Mass/Vol] 2.01 mg/dL High 0.70-1.30 [facility] Comment on above: Performed By: #### L [id number] ####[facility] ([facility])[address] [place] [address] GLOMERULAR FILTRATION RATE ML/MIN/1.73 SQ M.PREDICTED 32.5 mL/min/1.73m*2 Low >60.0 [facility] Comment on above: Result Comment: The [facility]???s estimated glomerular filtration rate (eGFR) will no [...] of individuals. Performed By: #### L [id number] ####[facility] ([facility])[address] [place] [address] Glucose [Mass/Vol] 79 mg/dL Normal 70-100 [facility] Comment on above: Performed By: #### L [id number] ####[facility] ([facility])[address] [place] [address] Potassium [Moles/Vol] 2.9 mmol/L Invalid Interpretation Code 3.5-5.1 [facility] Comment on above: Performed By: #### L [id number] ####[facility] ([facility])[address] [place] [address] Protein [Mass/Vol] 5.9 g/dL Low 6.0-8.3 [facility] Comment on above: Performed By: #### L [id number] ####[facility] ([facility])[address] [place] [address] Sodium [Moles/Vol] 137 mmol/L Normal 136-145 [facility] Comment on above: Performed By: #### L [id number] ####[facility] ([facility] [place] [address] Urea nitrogen [Mass/Vol] 37 mg/dL High 7-25 [facility] Comment on above: Performed By: #### L [id number] ####[facility] ([facility])[address] [place] [address] UREA NITROGEN/CREATININE (MASS RATIO) IN SER/PLAS 18.4 Normal [facility] Comment on above: Performed By: #### L [id number] ####[facility] ([facility])[address] [place] [address] DSon 10-17-2024 DS Normal [facility] MAGNESIUMon 10-17-2024 Magnesium [Mass/Vol] 2.0 mg/dL Normal 1.9-2.7 [facility] Comment on above: Performed By: #### L [id number] ####[facility] ([facility])[address] [place] [address] MANUAL DIFFERENTIALon 2024 ANISOCYTOSIS PRESENCE IN BLOOD BY LIGHT MICROSCOPY Moderate Normal [facility] Comment on above: Performed By: #### L [id number] ####[facility] ([facility])[address] [place] [address] BASOPHILS (10*3/UL) IN BLOOD BY CALCULATION 0.03 10*3/uL Normal 0.00-0.20 [facility] Comment on above: Performed By: #### L [id number] ####[facility] ([facility])[address] [place] [address] BASOPHILS/100 LEUKOCYTES IN BLOOD BY AUTOMATED COUNT 0.8 % Normal 0.0-1.0 [facility] Comment on above: Performed By: #### L [id number] ####[facility] ([facility])[address] [place] [address] EOSINOPHILS (10*3/UL) IN BLOOD BY CALCULATION 0.15 10*3/uL Normal 0.00-0.50 [facility] Comment on above: Performed By: #### L [id number] ####[facility] ([facility])[address] [facility] [address] EOSINOPHILS/100 LEUKOCYTES IN BLOOD BY AUTOMATED COUNT 4.0 % Normal 0.0-6.0 [facility] Comment on above: Performed By: #### L [id number] ####[facility] ([facility])[address] [place] [address] IMMATURE GRANULOCYTES (10*3/UL) IN BLOOD BY CALCULATION 0.01 10*3/uL Normal 0.00-0.20 [facility] Comment on above: Performed By: #### L [id number] ####[facility] ([facility] [place] [address] IMMATURE GRANULOCYTES/100 LEUKOCYTES IN BLOOD BY AUTOMATED COUNT 0.3 % Normal 0.0-1.0 [facility] Comment on above: Performed By: #### L [id number] ####[facility] ([facility])[address] [place] [address] LYMPHOCYTES (10*3/UL) IN BLOOD BY CALCULATION 0.74 10*3/uL Low 1.20-4.00 [facility] Comment on above: Performed By: #### L [id number] ####[facility] ([facility])[address] [place], [place] [address] LYMPHOCYTES/100 LEUKOCYTES IN BLOOD BY AUTOMATED COUNT 19.6 % Low 20.0-45.0 [facility] Comment on above: Performed By: #### L [id number] ####[facility] ([facility])[address] [place], [place] [address] MONOCYTES (10*3/UL) IN BLOOD BY CALCUATION 0.51 10*3/uL Normal 0.10-1.00 [facility] Comment on above: Performed By: #### L [id number] ####[facility] ([facility])[address] [place] [address] MONOCYTES/100 LEUKOCYTES IN BLOOD BY AUTOMATED COUNT 13.5 % High 5.0-12.0 [facility] Comment on above: Performed By: #### L [id number] ####[facility] ([facility])[address] [place], [place] [address] NEUTROPHILS (10*3/UL) IN BLOOD BY CALCULATION 2.3 10*3/uL Normal 1.6-7.6 [facility] Comment on above: Performed By: #### L [id number] ####[facility] ([facility] [place] [address] NEUTROPHILS/100 LEUKOCYTES IN BLOOD BY AUTOMATED COUNT 61.8 % Normal 40.0-72.0 [facility] Comment on above: Performed By: #### L [id number] ####[facility] ([facility])[address] [place] [address] POIKILOCYTOSIS (PRESENCE) IN BLOOD BY LIGHT MICROSCOPY Slight Normal [facility] Comment on above: Performed By: #### L [id number] ####[facility] [place] [address] POLYCHROMASIA IN BLOOD BY LIGHT MICROSCOPY Slight Normal [facility] Comment on above: Performed By: #### L [id number] ####[facility] ([facility])[address] [place] [address] NURSNOTEon 10-17-2024 NURSNOTE Report called to [facility] burns at [facility] ([phone]) Normal [facility] POTASSIUMon 10-17-2024 Potassium [Moles/Vol] 3.3 mmol/L Low 3.5-5.1 [facility] Comment on above: Performed By: #### L [id number] ####[facility] ([facility])[address] [place] [address] 30on 10-16-2024 30 Normal [facility] CBC WITH AUTO DIFFERENTIALon 10-16-2024 Erythrocyte distribution width (RBC) [Ratio] 23.8 % High 11.5-15.0 [facility] Comment on above: Performed By: #### L [id number] ####[facility] ([facility])[address] [place] [address] ERYTHROCYTE MEAN CORPUSCULAR HEMOGLOBIN CONCENTRATION (G/DL) BY AUTOMATED 30.1 g/dL Low 32.0-35.0 [facility] Comment on above: Performed By: #### L [id number] ####[facility] ([facility] [place] [address] Hematocrit (Bld) [Volume fraction] 34.6 % Low 39.0-55.0 [facility] Comment on above: Performed By: #### L [id number] ####[facility] ([facility] [place] [address] Hemoglobin (Bld) [Mass/Vol] 10.4 g/dL Low 13.0-17.0 [facility] Comment on above: Performed By: #### L [id number] ####[facility] ([facility])[address] [place] [address] MCH (RBC) [Entitic mass] 28.4 pg Normal 27.0-33.0 [facility] Comment on above: Performed By: #### L [id number] ####[facility] [facility])[address] [place] [address] MCV (RBC) [Entitic vol] 94.5 fL Normal 82.0-98.0 [facility] Comment on above: Performed By: #### L [id number] ####[facility] ([facility])[address] [place] [address] NRBC (PER 100 WBCS) BY AUTOMATED COUNT 0.0 % Normal 0 [facility] Comment on above: Performed By: #### L [id number] ####[facility] ([facility])[address] [place] [address] PLATELETS (10*3/UL) IN BLOOD AUTOMATED COUNT 179 10*3/uL Normal 150-400 [facility] Comment on above: Performed By: #### L [id number] ####[facility] ([facility])[address] [place] [address] RBC (Bld) [#/Vol] 3.66 10*6/uL Low 4.20-5.70 [facility] Comment on above: Performed By: #### L [id number] ####[facility] ([facility])[address] [place] [address] WBC (Bld) [#/Vol] 4.33 10*3/uL Normal 4.00-10.60 [facility] Comment on above: Performed By: #### L [id number] ####[facility] ([facility])[address] [place] [address] COMPREHENSIVE METABOLIC PANE Aldo 10-16-2024 Albumin [Mass/Vol] 3.6 g/dL Normal 3.5-5.7 [facility] Comment on above: Performed By: #### L [id number] ####[facility] ([facility])[address] [place] [address] ALP [Catalytic activity/Vol] 112 U/L High 34-104 [facility] Comment on above: Performed By: #### L [id number] ####[facility] ([facility])[address] [place] [address] ALT [Catalytic activity/Vol] 33 U/L Normal 7-52 [facility] Comment on above: Performed By: #### L [id number] ####[facility] ([facility])[address] [place] [address] Anion gap [Moles/Vol] 12 mmol/L Normal 7-20 [facility] Comment on above: Performed By: #### L [id number] ####[facility] ([facility])[address] [place] [address] AST [Catalytic activity/Vol] 19 U/L Normal 13-39 [facility] Comment on above: Performed By: #### L [id number] ####[facility] ([facility])[address] [place] [address] Bilirubin [Mass/Vol] 1.3 mg/dL High 0.3-1.0 [facility] Comment on above: Performed By: #### L [id number] ####[facility] ([facility])[address] [place] [address] Calcium [Mass/Vol] 8.9 mg/dL Normal 8.6-10.3 [facility] Comment on above: Performed By: #### L [id number] ####[facility] ([facility])[address] [place] [address] Chloride [Moles/Vol] 102 mmol/L Normal 98-107 [facility] Comment on above: Performed By: #### L [id number] ####[facility] ([facility])[address] [place] [address] CO2 [Moles/Vol] 26 mmol/L Normal 21-31 [facility] Comment on above: Performed By: #### L [id number] ####[facility] ([facility])[address] [place] [address] Creatinine [Mass/Vol] 2.13 mg/dL High 0.70-1.30 [facility] Comment on above: Performed By: #### L [id number] ####[facility] ([facility])[address] [place] [address] GLOMERULAR FILTRATION RATE ML/MIN/1.73 SQ M.PREDICTED 30.3 mL/min/1.73m*2 Low >60.0 [facility] Comment on above: Result Comment: The [facility]???s estimated glomerular filtration rate (eGFR) will no [...] of individuals. Performed By: #### L [id number] ####[facility] ([facility])[address] [place] [address] Glucose [Mass/Vol] 77 mg/dL Normal 70-100 [facility] Comment on above: Performed By: #### L [id number] ####[facility] ([facility])[address] [place] [address] Potassium [Moles/Vol] 3.6 mmol/L Normal 3.5-5.1 [facility] Comment on above: Performed By: #### L [id number] ####[facility] ([facility])[address] [place] [address] Protein [Mass/Vol] 6.1 g/dL Normal 6.0-8.3 [facility] Comment on above: Performed By: #### L [id number] ####[facility] ([facility])[address] [place] [address] Sodium [Moles/Vol] 136 mmol/L Normal 136-145 [facility] Comment on above: Performed By: #### L [id number] ####[facility] ([facility])[address] [place] [address] Urea nitrogen [Mass/Vol] 40 mg/dL High 7-25 [facility] Comment on above: Performed By: #### L [id number] ####[facility] ([facility])[address] [place] [address] UREA NITROGEN/CREATININE (MASS RATIO) IN SER/PLAS 18.8 Normal [facility] Comment on above: Performed By: #### L [id number] ####[facility] ([facility])[address] [place] [address] MAGNESIUMon 10-16-2024 Magnesium [Mass/Vol] 2.3 mg/dL Normal 1.9-2.7 [facility] Comment on above: Performed By: #### L [id number] ####[facility] ([facility])[address] [place] [address] MANUAL DIFFERENTIALon 2024 ACANTHOCYTES PRESENCE IN BLOOD BY LIGHT MICROSCOPY Moderate Normal [facility] Comment on above: Performed By: #### L [id number] ####[facility] ([facility])[address] [place] [address] ANISOCYTOSIS PRESENCE IN BLOOD BY LIGHT MICROSCOPY Moderate Normal [facility] Comment on above: Performed By: #### L [id number] ####[facility] ([facility])[address] [place] [address] BASOPHILS (10*3/UL) IN BLOOD BY CALCULATION 0.04 10*3/uL Normal 0.00-0.20 [facility] Comment on above: Performed By: #### L [id number] ####[facility] ([facility])[address] [place] [address] BASOPHILS/100 LEUKOCYTES IN BLOOD BY AUTOMATED COUNT 0.9 % Normal 0.0-1.0 [facility] Comment on above: Performed By: #### L [id number] ####[facility] ([facility])[address] [place] [address] ELLIPTOCYTES IN BLOOD BY LIGHT MICROSCOPY Slight Normal [facility] Comment on above: Performed By: #### L [id number] ####[facility] ([facility])[address] [place] [address] EOSINOPHILS (10*3/UL) IN BLOOD BY CALCULATION 0.16 10*3/uL Normal 0.00-0.50 [facility] Comment on above: Performed By: #### L [id number] ####[facility] ([facility])[address] [place] [address] EOSINOPHILS/100 LEUKOCYTES IN BLOOD BY AUTOMATED COUNT 3.7 % Normal 0.0-6.0 [facility] Comment on above: Performed By: #### L [id number] ####[facility] ([facility])[address] [place] [address] IMMATURE GRANULOCYTES (10*3/UL) IN BLOOD BY CALCULATION 0.02 10*3/uL Normal 0.00-0.20 [facility] Comment on above: Performed By: #### L [id number] ####[facility] ([facility])[address] [place] [address] IMMATURE GRANULOCYTES/100 LEUKOCYTES IN BLOOD BY AUTOMATED COUNT 0.5 % Normal 0.0-1.0 [facility] Comment on above: Performed By: #### L [id number] ####[facility] ([facility])[address] [place] [address] LYMPHOCYTES (10*3/UL) IN BLOOD BY CALCULATION 0.71 10*3/uL Low 1.20-4.00 [facility] Comment on above: Performed By: #### L [id number] ####[facility] ([facility])[address] [place] [address] LYMPHOCYTES/100 LEUKOCYTES IN BLOOD BY AUTOMATED COUNT 16.4 % Low 20.0-45.0 [facility] Comment on above: Performed By: #### L [id number] ####[facility] ([facility])[address] [place] [address] MONOCYTES (10*3/UL) IN BLOOD BY CALCUATION 0.52 10*3/uL Normal 0.10-1.00 [facility] Comment on above: Performed By: #### L [id number] ####[facility] ([facility])[address] [place] [address] MONOCYTES/100 LEUKOCYTES IN BLOOD BY AUTOMATED COUNT 12.0 % Normal 5.0-12.0 [facility] Comment on above: Performed By: #### L [id number] ####[facility] ([facility])[address] [place] [address] NEUTROPHILS (10*3/UL) IN BLOOD BY CALCULATION 2.9 10*3/uL Normal 1.6-7.6 [facility] Comment on above: Performed By: #### L [id number] ####[facility] ([facility])[address] [place] [address] NEUTROPHILS/100 LEUKOCYTES IN BLOOD BY AUTOMATED COUNT 66.5 % Normal 40.0-72.0 [facility] Comment on above: Performed By: #### L [id number] ####[facility] ([facility])[address] [place] [address] OVALOCYTES PRESENCE IN BLOOD BY LIGHT MICROSCOPY Slight Normal [facility] Comment on above: Performed By: #### L [id number] ####[facility] ([facility])[address] [place] [address] POIKILOCYTOSIS (PRESENCE) IN BLOOD BY LIGHT MICROSCOPY Moderate Normal [facility] Comment on above: Performed By: #### L [id number] ####[facility] ([facility])[address] [place] [address] POLYCHROMASIA IN BLOOD BY LIGHT MICROSCOPY Slight Normal [facility] Comment on above: Performed By: #### L [id number] ####[facility] ([facility])[address] [place] [address] SCHISTOCYTES (PRESENCE) IN BLOOD BY LIGHT MICROSCOPY Slight Normal [facility] Comment on above: Performed By: #### L [id number] ####[facility] ([facility])[address] [place] [address] 30on 10-15-2024 30 Normal [facility] 30 Normal [facility] ANESon 10-15-2024 ANES Normal [facility] CBC WITH AUTO DIFFERENTIALon 10-15-2024 Erythrocyte distribution width (RBC) [Ratio] 23.9 % High 11.5-15.0 [facility] Comment on above: Performed By: #### L [id number] ####[facility] ([facility])[address] [place] [address] ERYTHROCYTE MEAN CORPUSCULAR HEMOGLOBIN CONCENTRATION (G/DL) BY AUTOMATED 30.5 g/dL Low 32.0-35.0 [facility] Comment on above: Performed By: #### L [id number] ####[facility] ([facility])[address] [place] [address] Hematocrit (Bld) [Volume fraction] 33.8 % Low 39.0-55.0 [facility] Comment on above: Performed By: #### L [id number] ####[facility] ([facility])[address] [place] [address] Hemoglobin (Bld) [Mass/Vol] 10.3 g/dL Low 13.0-17.0 [facility] Comment on above: Performed By: #### L [id number] ####[facility] ([facility])[address] [place] [address] MCH (RBC) [Entitic mass] 28.5 pg Normal 27.0-33.0 [facility] Comment on above: Performed By: #### L [id number] ####[facility] ([facility])[address] [place] [address] MCV (RBC) [Entitic vol] 93.6 fL Normal 82.0-98.0 [facility] Comment on above: Performed By: #### L [id number] ####[facility] ([facility])[address] [place] [address] NRBC (PER 100 WBCS) BY AUTOMATED COUNT 0.0 % Normal 0 [facility] Comment on above: Performed By: #### L [id number] ####[facility] ([facility])[address] [place] [address] PLATELETS (10*3/UL) IN BLOOD AUTOMATED COUNT 159 10*3/uL Normal 150-400 [facility] Comment on above: Performed By: #### L [id number] ####[facility] ([facility])[address] [place] [address] RBC (Bld) [#/Vol] 3.61 10*6/uL Low 4.20-5.70 [facility] Comment on above: Performed By: #### L [id number] ####[facility] ([facility])[address] [place] [address] WBC (Bld) [#/Vol] 4.40 10*3/uL Normal 4.00-10.60 [facility] Comment on above: Performed By: #### L [id number] ####[facility] ([facility])[address] [place] [address] COMPREHENSIVE METABOLIC PANE Aldo 10-15-2024 Albumin [Mass/Vol] 3.8 g/dL Normal 3.5-5.7 [facility] Comment on above: Performed By: #### L [id number] ####[facility] ([facility])[address] [place] [address] ALP [Catalytic activity/Vol] 96 U/L Normal 34-104 [facility] Comment on above: Performed By: #### L [id number] ####[facility] ([facility])[address] [place] [address] ALT [Catalytic activity/Vol] 39 U/L Normal 7-52 [facility] Comment on above: Performed By: #### L [id number] ####[facility] ([facility])[address] [place] [address] Anion gap [Moles/Vol] 12 mmol/L Normal 7-20 [facility] Comment on above: Performed By: #### L [id number] ####[facility] ([facility])[address] [place] [address] AST [Catalytic activity/Vol] 19 U/L Normal 13-39 [facility] Comment on above: Performed By: #### L [id number] ####[facility] ([facility])[address] [place] [address] Bilirubin [Mass/Vol] 1.4 mg/dL High 0.3-1.0 [facility] Comment on above: Performed By: #### L [id number] ####[facility] ([facility])[address] [place] [address] Calcium [Mass/Vol] 9.0 mg/dL Normal 8.6-10.3 [facility] Comment on above: Performed By: #### L [id number] ####[facility] ([facility])[address] [place] [address] Chloride [Moles/Vol] 102 mmol/L Normal 98-107 [facility] Comment on above: Performed By: #### L [id number] ####[facility] ([facility])[address] [place] [address] CO2 [Moles/Vol] 25 mmol/L Normal 21-31 [facility] Comment on above: Performed By: #### L [id number] ####[facility] ([facility])[address] [place] [address] Creatinine [Mass/Vol] 2.38 mg/dL High 0.70-1.30 [facility] Comment on above: Performed By: #### L [id number] ####[facility] ([facility])[address] [place] [address] GLOMERULAR FILTRATION RATE ML/MIN/1.73 SQ M.PREDICTED 26.5 mL/min/1.73m*2 Low >60.0 [facility] Comment on above: Result Comment: The [facility]???s estimated glomerular filtration rate (eGFR) will no [...] of individuals. Performed By: #### L [id number] ####[facility] ([facility])[address] [place] [address] Glucose [Mass/Vol] 82 mg/dL Normal 70-100 [facility] Comment on above: Performed By: #### L [id number] ####[facility] ([facility])[address] [place] [address] Potassium [Moles/Vol] 4.1 mmol/L Normal 3.5-5.1 [facility] Comment on above: Performed By: #### L [id number] ####[facility] ([facility])[address] [place] [address] Protein [Mass/Vol] 6.2 g/dL Normal 6.0-8.3 [facility] Comment on above: Performed By: #### L [id number] ####[facility] ([facility])[address] [place] [address] Sodium [Moles/Vol] 135 mmol/L Low 136-145 [facility] Comment on above: Performed By: #### L [id number] ####[facility] ([facility])[address] [place] [address] Urea nitrogen [Mass/Vol] 40 mg/dL High 7-25 [facility] Comment on above: Performed By: #### L [id number] ####[facility] ([facility])[address] [place] [address] UREA NITROGEN/CREATININE (MASS RATIO) IN SER/PLAS 16.8 Normal [facility] Comment on above: Performed By: #### L [id number] ####[facility] ([facility])[address] [place] [address] HPon 10-15-2024 HP Normal [facility] MAGNESIUMon 10-15-2024 Magnesium [Mass/Vol] 2.3 mg/dL Normal 1.9-2.7 [facility] Comment on above: Performed By: #### L [id number] ####[facility] ([facility])[address] [place] [address] MANUAL DIFFERENTIALon 2024 ANISOCYTOSIS PRESENCE IN BLOOD BY LIGHT MICROSCOPY Moderate Normal [facility] Comment on above: Performed By: #### L [id number] ####[facility] ([facility])[address] [place] [address] BASOPHILS (10*3/UL) IN BLOOD BY CALCULATION 0.04 10*3/uL Normal 0.00-0.20 [facility] Comment on above: Performed By: #### L [id number] ####[facility] ([facility])[address] [place] [address] BASOPHILS/100 LEUKOCYTES IN BLOOD BY AUTOMATED COUNT 0.9 % Normal 0.0-1.0 [facility] Comment on above: Performed By: #### L [id number] ####[facility] ([facility])[address] [place] [address] ELLIPTOCYTES IN BLOOD BY LIGHT MICROSCOPY Slight Normal [facility] Comment on above: Performed By: #### L [id number] ####[facility] ([facility])[address] [place] [address] EOSINOPHILS (10*3/UL) IN BLOOD BY CALCULATION 0.16 10*3/uL Normal 0.00-0.50 [facility] Comment on above: Performed By: #### L [id number] ####[facility] ([facility])[address] [facility] [address] EOSINOPHILS/100 LEUKOCYTES IN BLOOD BY AUTOMATED COUNT 3.6 % Normal 0.0-6.0 [facility] Comment on above: Performed By: #### L [id number] ####[facility] ([facility])[address] [place] [address] HYPOCHROMIA (PRESENCE) IN BLOOD BY LIGHT MICROSCOPY Slight Normal [facility] Comment on above: Performed By: #### L [id number] ####[facility] ([facility])[address] [place] [address] IMMATURE GRANULOCYTES (10*3/UL) IN BLOOD BY CALCULATION 0.02 10*3/uL Normal 0.00-0.20 [facility] Comment on above: Performed By: #### L [id number] ####[facility] ([facility])[address] [place] [address] IMMATURE GRANULOCYTES/100 LEUKOCYTES IN BLOOD BY AUTOMATED COUNT 0.5 % Normal 0.0-1.0 [facility] Comment on above: Performed By: #### L [id number] ####[facility] ([facility])[address] [place] [address] LYMPHOCYTES (10*3/UL) IN BLOOD BY CALCULATION 0.81 10*3/uL Low 1.20-4.00 [facility] Comment on above: Performed By: #### L [id number] ####[facility] ([facility])[address] [place] [address] LYMPHOCYTES/100 LEUKOCYTES IN BLOOD BY AUTOMATED COUNT 18.4 % Low 20.0-45.0 [facility] Comment on above: Performed By: #### L [id number] ####[facility] ([facility])[address] [place] [address] MONOCYTES (10*3/UL) IN BLOOD BY CALCUATION 0.51 10*3/uL Normal 0.10-1.00 [facility] Comment on above: Performed By: #### L [id number] ####[facility] ([facility])[address] [place] [address] MONOCYTES/100 LEUKOCYTES IN BLOOD BY AUTOMATED COUNT 11.6 % Normal 5.0-12.0 [facility] Comment on above: Performed By: #### L [id number] ####[facility] ([facility])[address] [place] [address] NEUTROPHILS (10*3/UL) IN BLOOD BY CALCULATION 2.9 10*3/uL Normal 1.6-7.6 [facility] Comment on above: Performed By: #### L [id number] ####[facility] ([facility])[address] [place] [address] NEUTROPHILS/100 LEUKOCYTES IN BLOOD BY AUTOMATED COUNT 65.0 % Normal 40.0-72.0 [facility] Comment on above: Performed By: #### L [id number] ####[facility] ([facility])[address] [place] [address] OVALOCYTES PRESENCE IN BLOOD BY LIGHT MICROSCOPY Slight Normal [facility] Comment on above: Performed By: #### L [id number] ####[facility] ([facility])[address] [place] [address] POIKILOCYTOSIS (PRESENCE) IN BLOOD BY LIGHT MICROSCOPY Moderate Normal [facility] Comment on above: Performed By: #### L [id number] ####[facility] ([facility])[address] [place] [address] POLYCHROMASIA IN BLOOD BY LIGHT MICROSCOPY Slight Normal [facility] Comment on above: Performed By: #### L [id number] ####[facility] ([facility])[address] [place] [address] SCHISTOCYTES (PRESENCE) IN BLOOD BY LIGHT MICROSCOPY Slight Normal [facility] Comment on above: Performed By: #### L [id number] ####[facility] ([facility])[address] [place] [address] 30on 10-14-2024 30 Normal [facility] 30 Normal [facility] 30 The patient is Moder ately Stable - Low risk of patient condition declining or worsening The patient's goals for the shift include comfort and rest The clinical goals for the shift include VSS Normal [facility] B-TYPE NATRIURETIC PEPTIDEon 10-14-2024 Natriuretic peptide B (Bld) [Mass/Vol] 4304 pg/mL High 0-100 [facility] Comment on above: Performed By: #### L [id number] ####[facility] ([facility])[address] [place] [address] CBC WITH AUTO DIFFERENTIALon 10-14-2024 Erythrocyte distribution width (RBC) [Ratio] 24.1 % High 11.5-15.0 [facility] Comment on above: Performed By: #### L [id number] ####[facility] [place] [address] ERYTHROCYTE MEAN CORPUSCULAR HEMOGLOBIN CONCENTRATION (G/DL) BY AUTOMATED 30.9 g/dL Low 32.0-35.0 [facility] Comment on above: Performed By: #### L [id number] ####[facility] ([facility])[address] [place] [address] Hematocrit (Bld) [Volume fraction] 33.7 % Low 39.0-55.0 [facility] Comment on above: Performed By: #### L [id number] ####[facility] ([facility])[address] [place] [address] Hemoglobin (Bld) [Mass/Vol] 10.4 g/dL Low 13.0-17.0 [facility] Comment on above: Performed By: #### L [id number] ####[facility] ([facility])[address] [place] [address] MCH (RBC) [Entitic mass] 28.4 pg Normal 27.0-33.0 [facility] Comment on above: Performed By: #### L [id number] ####[facility] ([facility] [place] [address] MCV (RBC) [Entitic vol] 92.1 fL Normal 82.0-98.0 [facility] Comment on above: Performed By: #### L [id number] ####[facility] ([facility])[address] [place] [address] NRBC (PER 100 WBCS) BY AUTOMATED COUNT 0.0 % Normal 0 [facility] Comment on above: Performed By: #### L [id number] ####[facility] ([facility])[address] [place] [address] PLATELETS (10*3/UL) IN BLOOD AUTOMATED COUNT 163 10*3/uL Normal 150-400 [facility] Comment on above: Performed By: #### L [id number] ####[facility] ([facility])[address] [place] [address] RBC (Bld) [#/Vol] 3.66 10*6/uL Low 4.20-5.70 [facility] Comment on above: Performed By: #### L [id number] ####[facility] ([facility])[address] [place] [address] WBC (Bld) [#/Vol] 4.77 10*3/uL Normal 4.00-10.60 [facility] Comment on above: Performed By: #### L [id number] ####[facility] ([facility])[address] [place] [address] COMPREHENSIVE METABOLIC PANE Aldo 10-14-2024 Albumin [Mass/Vol] 3.9 g/dL Normal 3.5-5.7 [facility] Comment on above: Performed By: #### L [id number] ####[facility] ([facility])[address] [place] [address] ALP [Catalytic activity/Vol] 85 U/L Normal 34-104 [facility] Comment on above: Performed By: #### L [id number] ####[facility] ([facility])[address] [place] [address] ALT [Catalytic activity/Vol] 44 U/L Normal 7-52 [facility] Comment on above: Performed By: #### L [id number] ####[facility] ([facility])[address] [place] [address] Anion gap [Moles/Vol] 11 mmol/L Normal 7-20 [facility] Comment on above: Performed By: #### L [id number] ####[facility] ([facility])[address] [place] [address] AST [Catalytic activity/Vol] 19 U/L Normal 13-39 [facility] Comment on above: Performed By: #### L [id number] ####[facility] ([facility])[address] [place] [address] Bilirubin [Mass/Vol] 1.5 mg/dL High 0.3-1.0 [facility] Comment on above: Performed By: #### L [id number] ####[facility] ([facility])[address] [place] [address] Calcium [Mass/Vol] 9.0 mg/dL Normal 8.6-10.3 [facility] Comment on above: Performed By: #### L [id number] ####[facility] ([facility])[address] [place] [address] Chloride [Moles/Vol] 100 mmol/L Normal 98-107 [facility] Comment on above: Performed By: #### L [id number] ####[facility] ([facility])[address] [place] [address] CO2 [Moles/Vol] 27 mmol/L Normal 21-31 [facility] Comment on above: Performed By: #### L [id number] ####[facility] ([facility])[address] [place] [address] Creatinine [Mass/Vol] 2.46 mg/dL High 0.70-1.30 [facility] Comment on above: Performed By: #### L [id number] ####[facility] ([facility])[address] [place] [address] GLOMERULAR FILTRATION RATE ML/MIN/1.73 SQ M.PREDICTED 25.5 mL/min/1.73m*2 Low >60.0 [facility] Comment on above: Result Comment: The [facility]???s estimated glomerular filtration rate (eGFR) will no [...] of individuals. Performed By: #### L [id number] ####[facility] ([facility])[address] [place] [address] Glucose [Mass/Vol] 94 mg/dL Normal 70-100 [facility] Comment on above: Performed By: #### L [id number] ####[facility] ([facility])[address] [place] [address] Potassium [Moles/Vol] 4.3 mmol/L Normal 3.5-5.1 [facility] Comment on above: Performed By: #### L [id number] ####[facility] ([facility])[address] [place] [address] Protein [Mass/Vol] 6.2 g/dL Normal 6.0-8.3 [facility] Comment on above: Performed By: #### L [id number] ####[facility] ([facility])[address] [place] [address] Sodium [Moles/Vol] 134 mmol/L Low 136-145 [facility] Comment on above: Performed By: #### L [id number] ####[facility] ([facility])[address] [place] [address] Urea nitrogen [Mass/Vol] 43 mg/dL High 7-25 [facility] Comment on above: Performed By: #### L [id number] ####[facility] ([facility])[address] [place] [address] UREA NITROGEN/CREATININE (MASS RATIO) IN SER/PLAS 17.5 Normal [facility] Comment on above: Performed By: #### L [id number] ####[facility] ([facility])[address] [facility] [address] MAGNESIUMon 10-14-2024 Magnesium [Mass/Vol] 2.3 mg/dL Normal 1.9-2.7 [facility] Comment on above: Performed By: #### L [id number] ####[facility] ([facility])[address] [place] [address] MANUAL DIFFERENTIALon 2024 ACANTHOCYTES PRESENCE IN BLOOD BY LIGHT MICROSCOPY Moderate Normal [facility] Comment on above: Performed By: #### L [id number] ####[facility] ([facility])[address] [place] [address] ANISOCYTOSIS PRESENCE IN BLOOD BY LIGHT MICROSCOPY Moderate Normal [facility] Comment on above: Performed By: #### L [id number] ####[facility] ([facility])[address] [place] [address] BASOPHILS (10*3/UL) IN BLOOD BY CALCULATION 0.04 10*3/uL Normal 0.00-0.20 [facility] Comment on above: Performed By: #### L [id number] ####[facility] ([facility])[address] [place] [address] BASOPHILS/100 LEUKOCYTES IN BLOOD BY AUTOMATED COUNT 0.8 % Normal 0.0-1.0 [facility] Comment on above: Performed By: #### L [id number] ####[facility] ([facility])[address] [place] [address] ELLIPTOCYTES IN BLOOD BY LIGHT MICROSCOPY Slight Normal [facility] Comment on above: Performed By: #### L [id number] ####[facility] ([facility])[address] [place] [address] EOSINOPHILS (10*3/UL) IN BLOOD BY CALCULATION 0.14 10*3/uL Normal 0.00-0.50 [facility] Comment on above: Performed By: #### L [id number] ####[facility] ([facility])[address] [place] [address] EOSINOPHILS/100 LEUKOCYTES IN BLOOD BY AUTOMATED COUNT 2.9 % Normal 0.0-6.0 [facility] Comment on above: Performed By: #### L [id number] ####[facility] ([facility])[address] [place] [address] IMMATURE GRANULOCYTES (10*3/UL) IN BLOOD BY CALCULATION 0.03 10*3/uL Normal 0.00-0.20 [facility] Comment on above: Performed By: #### L [id number] ####[facility] ([facility])[address] [place] [address] IMMATURE GRANULOCYTES/100 LEUKOCYTES IN BLOOD BY AUTOMATED COUNT 0.6 % Normal 0.0-1.0 [facility] Comment on above: Performed By: #### L [id number] ####[facility] ([facility])[address] [place] [address] LYMPHOCYTES (10*3/UL) IN BLOOD BY CALCULATION 0.78 10*3/uL Low 1.20-4.00 [facility] Comment on above: Performed By: #### L [id number] ####[facility] ([facility])[address] [place] [address] LYMPHOCYTES/100 LEUKOCYTES IN BLOOD BY AUTOMATED COUNT 16.4 % Low 20.0-45.0 [facility] Comment on above: Performed By: #### L [id number] ####[facility] ([facility])[address] [place] [address] MONOCYTES (10*3/UL) IN BLOOD BY CALCUATION 0.57 10*3/uL Normal 0.10-1.00 [facility] Comment on above: Performed By: #### L [id number] ####[facility] ([facility])[address] [place] [address] MONOCYTES/100 LEUKOCYTES IN BLOOD BY AUTOMATED COUNT 11.9 % Normal 5.0-12.0 [facility] Comment on above: Performed By: #### L [id number] ####[facility] ([facility])[address] [place] [address] NEUTROPHILS (10*3/UL) IN BLOOD BY CALCULATION 3.2 10*3/uL Normal 1.6-7.6 [facility] Comment on above: Performed By: #### L [id number] ####[facility] ([facility])[address] [place] [address] NEUTROPHILS/100 LEUKOCYTES IN BLOOD BY AUTOMATED COUNT 67.4 % Normal 40.0-72.0 [facility] Comment on above: Performed By: #### L [id number] ####[facility] ([facility])[address] [place] [address] OVALOCYTES PRESENCE IN BLOOD BY LIGHT MICROSCOPY Slight Normal [facility] Comment on above: Performed By: #### L [id number] ####[facility] ([facility])[address] [place] [address] POIKILOCYTOSIS (PRESENCE) IN BLOOD BY LIGHT MICROSCOPY Moderate Normal [facility] Comment on above: Performed By: #### L [id number] ####[facility] ([facility])[address] [place] [address] POLYCHROMASIA IN BLOOD BY LIGHT MICROSCOPY Slight Normal [facility] Comment on above: Performed By: #### L [id number] ####[facility] ([facility])[address] [place] [address] SCHISTOCYTES (PRESENCE) IN BLOOD BY LIGHT MICROSCOPY Slight Normal [facility] Comment on above: Performed By: #### L [id number] ####[facility] ([facility])[address] [place] [address] 30on 10-13-2024 30 Normal [facility] 30 Normal [facility] CBC WITH AUTO DIFFERENTIALon 10-13-2024 Erythrocyte distribution width (RBC) [Ratio] 24.3 % High 11.5-15.0 [facility] Comment on above: Performed By: #### L [id number] ####[facility] ([facility])[address] [place] [address] ERYTHROCYTE MEAN CORPUSCULAR HEMOGLOBIN CONCENTRATION (G/DL) BY AUTOMATED 30.5 g/dL Low 32.0-35.0 [facility] Comment on above: Performed By: #### L [id number] ####[facility] ([facility])[address] [place] [address] Hematocrit (Bld) [Volume fraction] 34.7 % Low 39.0-55.0 [facility] Comment on above: Performed By: #### L [id number] ####[facility] ([facility])[address] [place] [address] Hemoglobin (Bld) [Mass/Vol] 10.6 g/dL Low 13.0-17.0 [facility] Comment on above: Performed By: #### L [id number] ####[facility] ([facility])[address] [place] [address] MCH (RBC) [Entitic mass] 28.1 pg Normal 27.0-33.0 [facility] Comment on above: Performed By: #### L [id number] ####[facility] ([facility])[address] [place] [address] MCV (RBC) [Entitic vol] 92.0 fL Normal 82.0-98.0 [facility] Comment on above: Performed By: #### L [id number] ####[facility] ([facility])[address] [place] [address] NRBC (PER 100 WBCS) BY AUTOMATED COUNT 0.0 % Normal 0 [facility] Comment on above: Performed By: #### L [id number] ####[facility] ([facility])[address] [place] [address] PLATELETS (10*3/UL) IN BLOOD AUTOMATED COUNT 158 10*3/uL Normal 150-400 [facility] Comment on above: Performed By: #### L [id number] ####[facility] ([facility])[address] [place] [address] RBC (Bld) [#/Vol] 3.77 10*6/uL Low 4.20-5.70 [facility] Comment on above: Performed By: #### L [id number] ####[facility] ([facility])[address] [place] [address] WBC (Bld) [#/Vol] 4.58 10*3/uL Normal 4.00-10.60 [facility] Comment on above: Performed By: #### L [id number] ####[facility] ([facility])[address] [place] [address] COMPREHENSIVE METABOLIC PANE Aldo 10-13-2024 Albumin [Mass/Vol] 3.5 g/dL Normal 3.5-5.7 [facility] Comment on above: Performed By: #### L [id number] ####[facility] ([facility])[address] [place] [address] ALP [Catalytic activity/Vol] 99 U/L Normal 34-104 [facility] Comment on above: Performed By: #### L [id number] ####[facility] ([facility])[address] [place] [address] ALT [Catalytic activity/Vol] 63 U/L High 7-52 [facility] Comment on above: Performed By: #### L [id number] ####[facility] ([facility])[address] [place] [address] Anion gap [Moles/Vol] 13 mmol/L Normal 7-20 [facility] Comment on above: Performed By: #### L [id number] ####[facility] ([facility])[address] [place] [address] AST [Catalytic activity/Vol] 21 U/L Normal 13-39 [facility] Comment on above: Performed By: #### L [id number] ####[facility] ([facility])[address] [place] [address] Bilirubin [Mass/Vol] 1.4 mg/dL High 0.3-1.0 [facility] Comment on above: Performed By: #### L [id number] ####[facility] ([facility])[address] [place] [address] Calcium [Mass/Vol] 9.0 mg/dL Normal 8.6-10.3 [facility] Comment on above: Performed By: #### L [id number] ####[facility] ([facility])[address] [place] [address] Chloride [Moles/Vol] 100 mmol/L Normal 98-107 [facility] Comment on above: Performed By: #### L [id number] ####[facility] ([facility])[address] [place] [address] CO2 [Moles/Vol] 26 mmol/L Normal 21-31 [facility] Comment on above: Performed By: #### L [id number] ####[facility] ([facility])[address] [place] [address] Creatinine [Mass/Vol] 2.27 mg/dL High 0.70-1.30 [facility] Comment on above: Performed By: #### L [id number] ####[facility] ([facility])[address] [place] [address] GLOMERULAR FILTRATION RATE ML/MIN/1.73 SQ M.PREDICTED 28.1 mL/min/1.73m*2 Low >60.0 [facility] Comment on above: Result Comment: The [facility]???s estimated glomerular filtration rate (eGFR) will no [...] of individuals. Performed By: #### L [id number] ####[facility] ([facility])[address] [place] [address] Glucose [Mass/Vol] 89 mg/dL Normal 70-100 [facility] Comment on above: Performed By: #### L [id number] ####[facility] ([facility])[address] [place] [address] Potassium [Moles/Vol] 4.7 mmol/L Normal 3.5-5.1 [facility] Comment on above: Performed By: #### L [id number] ####[facility] ([facility])[address] [place] [address] Protein [Mass/Vol] 6.2 g/dL Normal 6.0-8.3 [facility] Comment on above: Performed By: #### L [id number] ####[facility] ([facility])[address] [place] [address] Sodium [Moles/Vol] 134 mmol/L Low 136-145 [facility] Comment on above: Performed By: #### L [id number] ####[facility] ([facility])[address] [place] [address] Urea nitrogen [Mass/Vol] 38 mg/dL High 7-25 [facility] Comment on above: Performed By: #### L [id number] ####[facility] ([facility])[address] [place] [address] UREA NITROGEN/CREATININE (MASS RATIO) IN SER/PLAS 16.7 Normal [facility] Comment on above: Performed By: #### L [id number] ####[facility] ([facility])[address] [facility] [address] MAGNESIUMon 10-13-2024 Magnesium [Mass/Vol] 2.4 mg/dL Normal 1.9-2.7 [facility] Comment on above: Performed By: #### L [id number] ####[facility] ([facility])[address] [place] [address] MANUAL DIFFERENTIALon 2024 ANISOCYTOSIS PRESENCE IN BLOOD BY LIGHT MICROSCOPY Moderate Normal [facility] Comment on above: Performed By: #### L [id number] ####[facility] ([facility])[address] [place] [address] BASOPHILS (10*3/UL) IN BLOOD BY CALCULATION 0.04 10*3/uL Normal 0.00-0.20 [facility] Comment on above: Performed By: #### L [id number] ####[facility] ([facility])[address] [facility] [place] [address] BASOPHILS/100 LEUKOCYTES IN BLOOD BY AUTOMATED COUNT 0.9 % Normal 0.0-1.0 [facility] Comment on above: Performed By: #### L [id number] ####[facility] ([facility])[address] [place] [address] HAMZAH CELLS PRESENCE IN BLOOD BY LIGHT MICROSCOPY Slight Normal [facility] Comment on above: Performed By: #### L [id number] ####[facility] ([facility])[address] [place] [address] ELLIPTOCYTES IN BLOOD BY LIGHT MICROSCOPY Slight Normal [facility] Comment on above: Performed By: #### L [id number] ####[facility] ([facility])[address] [place] [address] EOSINOPHILS (10*3/UL) IN BLOOD BY CALCULATION 0.15 10*3/uL Normal 0.00-0.50 [facility] Comment on above: Performed By: #### L [id number] ####[facility] ([facility])[address] [place] [address] EOSINOPHILS/100 LEUKOCYTES IN BLOOD BY AUTOMATED COUNT 3.3 % Normal 0.0-6.0 [facility] Comment on above: Performed By: #### L [id number] ####[facility] ([facility])[address] [place] [address] IMMATURE GRANULOCYTES (10*3/UL) IN BLOOD BY CALCULATION 0.02 10*3/uL Normal 0.00-0.20 [facility] Comment on above: Performed By: #### L [id number] ####[facility] ([facility])[address] [place] [address] IMMATURE GRANULOCYTES/100 LEUKOCYTES IN BLOOD BY AUTOMATED COUNT 0.4 % Normal 0.0-1.0 [facility] Comment on above: Performed By: #### L [id number] ####[facility] ([facility])[address] [place] [address] LYMPHOCYTES (10*3/UL) IN BLOOD BY CALCULATION 0.87 10*3/uL Low 1.20-4.00 [facility] Comment on above: Performed By: #### L [id number] ####[facility] ([facility])[address] [place] [address] LYMPHOCYTES/100 LEUKOCYTES IN BLOOD BY AUTOMATED COUNT 19.0 % Low 20.0-45.0 [facility] Comment on above: Performed By: #### L [id number] ####[facility] ([facility])[address] [place] [address] MONOCYTES (10*3/UL) IN BLOOD BY CALCUATION 0.53 10*3/uL Normal 0.10-1.00 [facility] Comment on above: Performed By: #### L [id number] ####[facility] ([facility])[address] [place] [address] MONOCYTES/100 LEUKOCYTES IN BLOOD BY AUTOMATED COUNT 11.6 % Normal 5.0-12.0 [facility] Comment on above: Performed By: #### L [id number] ####[facility] ([facility])[address] [place] [address] NEUTROPHILS (10*3/UL) IN BLOOD BY CALCULATION 3.0 10*3/uL Normal 1.6-7.6 [facility] Comment on above: Performed By: #### L [id number] ####[facility] ([facility])[address] [place] [address] NEUTROPHILS/100 LEUKOCYTES IN BLOOD BY AUTOMATED COUNT 64.8 % Normal 40.0-72.0 [facility] Comment on above: Performed By: #### L [id number] ####[facility] ([facility])[address] [place] [address] OVALOCYTES PRESENCE IN BLOOD BY LIGHT MICROSCOPY Slight Normal [facility] Comment on above: Performed By: #### L [id number] ####[facility] ([facility])[address] [place] [address] POIKILOCYTOSIS (PRESENCE) IN BLOOD BY LIGHT MICROSCOPY Moderate Normal [facility] Comment on above: Performed By: #### L [id number] ####[facility] ([facility])[address] [place] [address] POLYCHROMASIA IN BLOOD BY LIGHT MICROSCOPY Slight Normal [facility] Comment on above: Performed By: #### L [id number] ####[facility] ([facility])[address] [place] [address] SCHISTOCYTES (PRESENCE) IN BLOOD BY LIGHT MICROSCOPY Slight Normal [facility] Comment on above: Performed By: #### L [id number] ####[facility] ([facility])[address] [place] [address] 30on 10-12-2024 30 Normal [facility] 30 Normal [facility] 30 Normal [facility] CBC WITH AUTO DIFFERENTIALon 10-12-2024 Erythrocyte distribution width (RBC) [Ratio] 24.5 % High 11.5-15.0 [facility] Comment on above: Performed By: #### L [id number] ####[facility] ([facility])[address] [place] [address] ERYTHROCYTE MEAN CORPUSCULAR HEMOGLOBIN CONCENTRATION (G/DL) BY AUTOMATED 29.6 g/dL Low 32.0-35.0 [facility] Comment on above: Performed By: #### L [id number] ####[facility] ([facility])[address] [place] [address] Hematocrit (Bld) [Volume fraction] 35.5 % Low 39.0-55.0 [facility] Comment on above: Performed By: #### L [id number] ####[facility] ([facility])[address] [place] [address] Hemoglobin (Bld) [Mass/Vol] 10.5 g/dL Low 13.0-17.0 [facility] Comment on above: Performed By: #### L [id number] ####[facility] ([facility])[address] [place] [address] MCH (RBC) [Entitic mass] 28.2 pg Normal 27.0-33.0 [facility] Comment on above: Performed By: #### L [id number] ####[facility] ([facility])[address] [place] [address] MCV (RBC) [Entitic vol] 95.4 fL Normal 82.0-98.0 [facility] Comment on above: Performed By: #### L [id number] ####[facility] ([facility])[address] [place] [address] NRBC (PER 100 WBCS) BY AUTOMATED COUNT 0.0 % Normal 0 [facility] Comment on above: Performed By: #### L [id number] ####[facility] ([facility])[address] [place] [address] PLATELETS (10*3/UL) IN BLOOD AUTOMATED COUNT 152 10*3/uL Normal 150-400 [facility] Comment on above: Performed By: #### L [id number] ####[facility] ([facility])[address] [place] [address] RBC (Bld) [#/Vol] 3.72 10*6/uL Low 4.20-5.70 [facility] Comment on above: Performed By: #### L [id number] ####[facility] ([facility])[address] [place] [address] WBC (Bld) [#/Vol] 4.68 10*3/uL Normal 4.00-10.60 [facility] Comment on above: Performed By: #### L [id number] ####[facility] ([facility])[address] [place] [address] COMPREHENSIVE METABOLIC PANE Aldo 10-12-2024 Albumin [Mass/Vol] 3.5 g/dL Normal 3.5-5.7 [facility] Comment on above: Performed By: #### L [id number] ####[facility] ([facility])[address] [place] [address] ALP [Catalytic activity/Vol] 103 U/L Normal 34-104 [facility] Comment on above: Performed By: #### L [id number] ####[facility] ([facility])[address] [place] [address] ALT [Catalytic activity/Vol] 73 U/L High 7-52 [facility] Comment on above: Performed By: #### L [id number] ####[facility] ([facility])[address] [place] [address] Anion gap [Moles/Vol] 9 mmol/L Normal 7-20 [facility] Comment on above: Performed By: #### L [id number] ####[facility] ([facility])[address] [place] [address] AST [Catalytic activity/Vol] 23 U/L Normal 13-39 [facility] Comment on above: Performed By: #### L [id number] ####[facility] ([facility])[address] [place] [address] Bilirubin [Mass/Vol] 1.6 mg/dL High 0.3-1.0 [facility] Comment on above: Performed By: #### L [id number] ####[facility] ([facility])[address] [place] [address] Calcium [Mass/Vol] 9.1 mg/dL Normal 8.6-10.3 [facility] Comment on above: Performed By: #### L [id number] ####[facility] ([facility])[address] [place] [address] Chloride [Moles/Vol] 103 mmol/L Normal 98-107 [facility] Comment on above: Performed By: #### L [id number] ####[facility] ([facility])[address] [place] [address] CO2 [Moles/Vol] 29 mmol/L Normal 21-31 [facility] Comment on above: Performed By: #### L [id number] ####[facility] ([facility])[address] [place] [address] Creatinine [Mass/Vol] 2.30 mg/dL High 0.70-1.30 [facility] Comment on above: Performed By: #### L [id number] ####[facility] ([facility])[address] [place] [address] GLOMERULAR FILTRATION RATE ML/MIN/1.73 SQ M.PREDICTED 27.7 mL/min/1.73m*2 Low >60.0 [facility] Comment on above: Result Comment: The [facility]???s estimated glomerular filtration rate (eGFR) will no [...] of individuals. Performed By: #### L [id number] ####[facility] ([facility])[address] [place] [address] Glucose [Mass/Vol] 84 mg/dL Normal 70-100 [facility] Comment on above: Performed By: #### L [id number] ####[facility] ([facility])[address] [place] [address] Potassium [Moles/Vol] 4.8 mmol/L Normal 3.5-5.1 [facility] Comment on above: Performed By: #### L [id number] ####[facility] ([facility])[address] [place] [address] Protein [Mass/Vol] 6.1 g/dL Normal 6.0-8.3 [facility] Comment on above: Performed By: #### L [id number] ####[facility] ([facility])[address] [place] [address] Sodium [Moles/Vol] 136 mmol/L Normal 136-145 [facility] Comment on above: Performed By: #### L [id number] ####[facility] ([facility])[address] [place] [address] Urea nitrogen [Mass/Vol] 38 mg/dL High 7-25 [facility] Comment on above: Performed By: #### L [id number] ####[facility] ([facility])[address] [place] [address] UREA NITROGEN/CREATININE (MASS RATIO) IN SER/PLAS 16.5 Normal [facility] Comment on above: Performed By: #### L [id number] ####[facility] ([facility])[address] [place] [address] MANUAL DIFFERENTIALon 2024 ANISOCYTOSIS PRESENCE IN BLOOD BY LIGHT MICROSCOPY Moderate Normal [facility] Comment on above: Performed By: #### L [id number] ####[facility] ([facility])[address] [place] [address] BASOPHILS (10*3/UL) IN BLOOD BY CALCULATION 0.04 10*3/uL Normal 0.00-0.20 [facility] Comment on above: Performed By: #### L [id number] ####[facility] ([facility])[address] [place] [address] BASOPHILS/100 LEUKOCYTES IN BLOOD BY AUTOMATED COUNT 0.9 % Normal 0.0-1.0 [facility] Comment on above: Performed By: #### L [id number] ####[facility] ([facility])[address] [place] [address] HAMZAH CELLS PRESENCE IN BLOOD BY LIGHT MICROSCOPY Slight Normal [facility] Comment on above: Performed By: #### L [id number] ####[facility] ([facility])[address] [place] [address] ELLIPTOCYTES IN BLOOD BY LIGHT MICROSCOPY Slight Normal [facility] Comment on above: Performed By: #### L [id number] ####[facility] ([facility])[address] [place] [address] EOSINOPHILS (10*3/UL) IN BLOOD BY CALCULATION 0.13 10*3/uL Normal 0.00-0.50 [facility] Comment on above: Performed By: #### L [id number] ####[facility] ([facility])[address] [place] [address] EOSINOPHILS/100 LEUKOCYTES IN BLOOD BY AUTOMATED COUNT 2.8 % Normal 0.0-6.0 [facility] Comment on above: Performed By: #### L [id number] ####[facility] ([facility])[address] [place] [address] IMMATURE GRANULOCYTES (10*3/UL) IN BLOOD BY CALCULATION 0.03 10*3/uL Normal 0.00-0.20 [facility] Comment on above: Performed By: #### L [id number] ####[facility] ([facility])[address] [place], [place] [address] IMMATURE GRANULOCYTES/100 LEUKOCYTES IN BLOOD BY AUTOMATED COUNT 0.6 % Normal 0.0-1.0 [facility] Comment on above: Performed By: #### L [id number] ####[facility] ([facility])[address] [place] [address] LYMPHOCYTES (10*3/UL) IN BLOOD BY CALCULATION 0.72 10*3/uL Low 1.20-4.00 [facility] Comment on above: Performed By: #### L [id number] ####[facility] ([facility])[address] [place] [address] LYMPHOCYTES/100 LEUKOCYTES IN BLOOD BY AUTOMATED COUNT 15.4 % Low 20.0-45.0 [facility] Comment on above: Performed By: #### L [id number] ####[facility] ([facility])[address] [place] [address] MONOCYTES (10*3/UL) IN BLOOD BY CALCUATION 0.51 10*3/uL Normal 0.10-1.00 [facility] Comment on above: Performed By: #### L [id number] ####[facility] ([facility])[address] [place] [address] MONOCYTES/100 LEUKOCYTES IN BLOOD BY AUTOMATED COUNT 10.9 % Normal 5.0-12.0 [facility] Comment on above: Performed By: #### L [id number] ####[facility] ([facility])[address] [place] [address] NEUTROPHILS (10*3/UL) IN BLOOD BY CALCULATION 3.2 10*3/uL Normal 1.6-7.6 [facility] Comment on above: Performed By: #### L [id number] ####[facility] ([facility])[address] [place] [address] NEUTROPHILS/100 LEUKOCYTES IN BLOOD BY AUTOMATED COUNT 69.4 % Normal 40.0-72.0 [facility] Comment on above: Performed By: #### L [id number] ####[facility] ([facility])[address] [place] [address] OVALOCYTES PRESENCE IN BLOOD BY LIGHT MICROSCOPY Slight Normal [facility] Comment on above: Performed By: #### L [id number] ####[facility] ([facility])[address] [place] [address] POIKILOCYTOSIS (PRESENCE) IN BLOOD BY LIGHT MICROSCOPY Moderate Normal [facility] Comment on above: Performed By: #### L [id number] ####[facility] ([facility])[address] [place] [address] POLYCHROMASIA IN BLOOD BY LIGHT MICROSCOPY Slight Normal [facility] Comment on above: Performed By: #### L [id number] ####[facility] ([facility])[address] [place] [address] SCHISTOCYTES (PRESENCE) IN BLOOD BY LIGHT MICROSCOPY Slight Normal [facility] Comment on above: Performed By: #### L [id number] ####[facility] ([facility])[address] [place] [address] TARGET CELLS IN BLOOD BY LIGHT MICROSCOPY Slight Normal [facility] Comment on above: Performed By: #### L [id number] ####[facility] ([facility])[address] [place] [address] 30on 10-11-2024 30 Normal [facility] 30 Normal [facility] CBC WITH AUTO DIFFERENTIALon 10-11-2024 Erythrocyte distribution width (RBC) [Ratio] 24.5 % High 11.5-15.0 [facility] Comment on above: Performed By: #### L [id number] ####[facility] ([facility])[address] [place] [address] ERYTHROCYTE MEAN CORPUSCULAR HEMOGLOBIN CONCENTRATION (G/DL) BY AUTOMATED 30.2 g/dL Low 32.0-35.0 [facility] Comment on above: Performed By: #### L [id number] ####[facility] ([facility])[address] [place] [address] Hematocrit (Bld) [Volume fraction] 34.1 % Low 39.0-55.0 [facility] Comment on above: Performed By: #### L [id number] ####[facility] ([facility])[address] [place] [address] Hemoglobin (Bld) [Mass/Vol] 10.3 g/dL Low 13.0-17.0 [facility] Comment on above: Performed By: #### L [id number] ####[facility] ([facility])[address] [place] [address] MCH (RBC) [Entitic mass] 28.4 pg Normal 27.0-33.0 [facility] Comment on above: Performed By: #### L [id number] ####[facility] ([facility])[address] [place] [address] MCV (RBC) [Entitic vol] 93.9 fL Normal 82.0-98.0 [facility] Comment on above: Performed By: #### L [id number] ####[facility] ([facility])[address] [place] [address] NRBC (PER 100 WBCS) BY AUTOMATED COUNT 0.0 % Normal 0 [facility] Comment on above: Performed By: #### L [id number] ####[facility] ([facility])[address] [place] [address] PLATELETS (10*3/UL) IN BLOOD AUTOMATED COUNT 159 10*3/uL Normal 150-400 [facility] Comment on above: Performed By: #### L [id number] ####[facility] ([facility])[address] [place] [address] RBC (Bld) [#/Vol] 3.63 10*6/uL Low 4.20-5.70 [facility] Comment on above: Performed By: #### L [id number] ####[facility] ([facility])[address] [place] [address] WBC (Bld) [#/Vol] 5.13 10*3/uL Normal 4.00-10.60 [facility] Comment on above: Performed By: #### L [id number] ####[facility] ([facility])[address] [place] [address] COMPREHENSIVE METABOLIC PANE [place] 10-11-2024 Albumin [Mass/Vol] 3.4 g/dL Low 3.5-5.7 [facility] Comment on above: Performed By: #### L [id number] ####[facility] ([facility])[address] [place] [address] ALP [Catalytic activity/Vol] 109 U/L High 34-104 [facility] Comment on above: Performed By: #### L [id number] ####[facility] ([facility])[address] [place] [address] ALT [Catalytic activity/Vol] 87 U/L High 7-52 [facility] Comment on above: Performed By: #### L [id number] ####[facility] ([facility])[address] [place] [address] Anion gap [Moles/Vol] 11 mmol/L Normal 7-20 [facility] Comment on above: Performed By: #### L [id number] ####[facility] ([facility])[address] [place] [address] AST [Catalytic activity/Vol] 33 U/L Normal 13-39 [facility] Comment on above: Performed By: #### L [id number] ####[facility] ([facility])[address] [place] [address] Bilirubin [Mass/Vol] 1.6 mg/dL High 0.3-1.0 [facility] Comment on above: Performed By: #### L [id number] ####[facility] ([facility])[address] [place] [address] Calcium [Mass/Vol] 8.9 mg/dL Normal 8.6-10.3 [facility] Comment on above: Performed By: #### L [id number] ####[facility] ([facility])[address] [place] [address] Chloride [Moles/Vol] 102 mmol/L Normal 98-107 [facility] Comment on above: Performed By: #### L [id number] ####[facility] ([facility])[address] [place] [address] CO2 [Moles/Vol] 26 mmol/L Normal 21-31 [facility] Comment on above: Performed By: #### L [id number] ####[facility] ([facility])[address] [place] [address] Creatinine [Mass/Vol] 2.17 mg/dL High 0.70-1.30 [facility] Comment on above: Performed By: #### L [id number] ####[facility] ([facility])[address] [place] [address] GLOMERULAR FILTRATION RATE ML/MIN/1.73 SQ M.PREDICTED 29.7 mL/min/1.73m*2 Low >60.0 [facility] Comment on above: Result Comment: The [facility]???s estimated glomerular filtration rate (eGFR) will no [...] of individuals. Performed By: #### L [id number] ####[facility] ([facility])[address] [place] [address] Glucose [Mass/Vol] 90 mg/dL Normal 70-100 [facility] Comment on above: Performed By: #### L [id number] ####[facility] ([facility])[address] [place] [address] Potassium [Moles/Vol] 5.1 mmol/L Normal 3.5-5.1 [facility] Comment on above: Performed By: #### L [id number] ####[facility] ([facility])[address] [place] [address] Protein [Mass/Vol] 6.1 g/dL Normal 6.0-8.3 [facility] Comment on above: Performed By: #### L [id number] ####[facility] ([facility])[address] [address] Sodium [Moles/Vol] 134 mmol/L Low 136-145 [facility] Comment on above: Performed By: #### L [id number] ####[facility] ([facility])[address] [place] [address] Urea nitrogen [Mass/Vol] 36 mg/dL High 7-25 [facility] Comment on above: Performed By: #### L [id number] ####[facility] ([facility])[address] [place] [address] UREA NITROGEN/CREATININE (MASS RATIO) IN SER/PLAS 16.6 Normal [facility] Comment on above: Performed By: #### L [id number] ####[facility] ([facility])[address] [place] [address] MANUAL DIFFERENTIALon 2024 ACANTHOCYTES PRESENCE IN BLOOD BY LIGHT MICROSCOPY Slight Normal [facility] Comment on above: Performed By: #### L [id number] ####[facility] ([facility])[address] [place] [address] ANISOCYTOSIS PRESENCE IN BLOOD BY LIGHT MICROSCOPY Moderate Normal [facility] Comment on above: Performed By: #### L [id number] ####[facility] ([facility])[address] [place] [address] BASOPHILS (10*3/UL) IN BLOOD BY CALCULATION 0.03 10*3/uL Normal 0.00-0.20 [facility] Comment on above: Performed By: #### L [id number] ####[facility] ([facility])[address] [place] [address] BASOPHILS/100 LEUKOCYTES IN BLOOD BY AUTOMATED COUNT 0.6 % Normal 0.0-1.0 [facility] Comment on above: Performed By: #### L [id number] ####[facility] ([facility])[address] [place] [address] ELLIPTOCYTES IN BLOOD BY LIGHT MICROSCOPY Slight Normal [facility] Comment on above: Performed By: #### L [id number] ####[facility] ([facility])[address] [place] [address] EOSINOPHILS (10*3/UL) IN BLOOD BY CALCULATION 0.16 10*3/uL Normal 0.00-0.50 [facility] Comment on above: Performed By: #### L [id number] ####[facility] ([facility])[address] [place] [address] EOSINOPHILS/100 LEUKOCYTES IN BLOOD BY AUTOMATED COUNT 3.1 % Normal 0.0-6.0 [facility] Comment on above: Performed By: #### L [id number] ####[facility] ([facility])[address] [place] [address] IMMATURE GRANULOCYTES (10*3/UL) IN BLOOD BY CALCULATION 0.06 10*3/uL Normal 0.00-0.20 [facility] Comment on above: Performed By: #### L [id number] ####[facility] ([facility])[address] [place] [address] IMMATURE GRANULOCYTES/100 LEUKOCYTES IN BLOOD BY AUTOMATED COUNT 1.2 % High 0.0-1.0 [facility] Comment on above: Performed By: #### L [id number] ####[facility] ([facility])[address] [place] [address] LYMPHOCYTES (10*3/UL) IN BLOOD BY CALCULATION 0.82 10*3/uL Low 1.20-4.00 [facility] Comment on above: Performed By: #### L [id number] ####[facility] ([facility])[address] [place] [address] LYMPHOCYTES/100 LEUKOCYTES IN BLOOD BY AUTOMATED COUNT 16.0 % Low 20.0-45.0 [facility] Comment on above: Performed By: #### L [id number] ####[facility] ([facility])[address] [place] [address] MONOCYTES (10*3/UL) IN BLOOD BY CALCUATION 0.60 10*3/uL Normal 0.10-1.00 [facility] Comment on above: Performed By: #### L [id number] ####[facility] ([facility])[address] [place] [address] MONOCYTES/100 LEUKOCYTES IN BLOOD BY AUTOMATED COUNT 11.7 % Normal 5.0-12.0 [facility] Comment on above: Performed By: #### L [id number] ####[facility] ([facility])[address] [place] [address] NEUTROPHILS (10*3/UL) IN BLOOD BY CALCULATION 3.5 10*3/uL Normal 1.6-7.6 [facility] Comment on above: Performed By: #### L [id number] ####[facility] ([facility])[address] [place] [address] NEUTROPHILS/100 LEUKOCYTES IN BLOOD BY AUTOMATED COUNT 67.4 % Normal 40.0-72.0 [facility] Comment on above: Performed By: #### L [id number] ####[facility] ([facility])[address] [place] [address] OVALOCYTES PRESENCE IN BLOOD BY LIGHT MICROSCOPY Slight Normal [facility] Comment on above: Performed By: #### L [id number] ####[facility] ([facility])[address] [place] [address] POIKILOCYTOSIS (PRESENCE) IN BLOOD BY LIGHT MICROSCOPY Moderate Normal [facility] Comment on above: Performed By: #### L [id number] ####[facility] ([facility])[address] [place] [address] POLYCHROMASIA IN BLOOD BY LIGHT MICROSCOPY Slight Normal [facility] Comment on above: Performed By: #### L [id number] ####[facility] ([facility])[address] [place] [address] SCHISTOCYTES (PRESENCE) IN BLOOD BY LIGHT MICROSCOPY Slight Normal [facility] Comment on above: Performed By: #### L [id number] ####[facility] ([facility])[address] [place] [address] TARGET CELLS IN BLOOD BY LIGHT MICROSCOPY Slight Normal [facility] Comment on above: Performed By: #### L [id number] ####[facility] ([facility])[address] [place] [address] POTASSIUMon 10-11-2024 Potassium [Moles/Vol] 4.5 mmol/L Normal 3.5-5.1 [facility] Comment on above: Performed By: #### L [id number] ####[facility] ([facility])[address] [place] [address] 30on 10-10-2024 30 Normal [facility] 30 Normal [facility] 30 Normal [facility] BASIC METABOLIC PANELon 09-17 Anion gap [Moles/Vol] 10 mmol/L Normal 7-20 [facility] Comment on above: Performed By: #### L [id number] ####[facility] ([facility])[address] [place] [address] Calcium [Mass/Vol] 9.1 mg/dL Normal 8.6-10.3 [facility] Comment on above: Performed By: #### L [id number] ####[facility] ([facility])[address] [place] [address] Chloride [Moles/Vol] 102 mmol/L Normal 98-107 [facility] Comment on above: Performed By: #### L [id number] ####[facility] ([facility])[address] [place] [address] CO2 [Moles/Vol] 28 mmol/L Normal 21-31 [facility] Comment on above: Performed By: #### L [id number] ####[facility] ([facility])[address] [place] [address] Creatinine [Mass/Vol] 1.98 mg/dL High 0.70-1.30 [facility] Comment on above: Performed By: #### L [id number] ####[facility] ([facility])[address] [place] [address] GLOMERULAR FILTRATION RATE ML/MIN/1.73 SQ M.PREDICTED 33.1 mL/min/1.73m*2 Low >60.0 [facility] Comment on above: Result Comment: The [facility]???s estimated glomerular filtration rate (eGFR) will no [...] of individuals. Performed By: #### L [id number] ####[facility] ([facility])[address] [place] [address] Glucose [Mass/Vol] 92 mg/dL Normal 70-100 [facility] Comment on above: Performed By: #### L [id number] ####[facility] ([facility])[address] [place] [address] Potassium [Moles/Vol] 4.5 mmol/L Normal 3.5-5.1 [facility] Comment on above: Performed By: #### L [id number] ####[facility] ([facility])[address] [place] [address] Sodium [Moles/Vol] 135 mmol/L Low 136-145 [facility] Comment on above: Performed By: #### L [id number] ####[facility] ([facility])[address] [facility] [address] Urea nitrogen [Mass/Vol] 35 mg/dL High 7-25 [facility] Comment on above: Performed By: #### L [id number] ####[facility] ([facility])[address] [facility] [address] UREA NITROGEN/CREATININE (MASS RATIO) IN SER/PLAS 17.7 Normal [facility] Comment on above: Performed By: #### L [id number] ####[facility] ([facility] [place] [address] CBC WITH AUTO DIFFERENTIALon 10-10-2024 Erythrocyte distribution width (RBC) [Ratio] 24.3 % High 11.5-15.0 [facility] Comment on above: Performed By: #### L [id number] ####[facility] ([facility])[address] [place] [address] ERYTHROCYTE MEAN CORPUSCULAR HEMOGLOBIN CONCENTRATION (G/DL) BY AUTOMATED 31.0 g/dL Low 32.0-35.0 [facility] Comment on above: Performed By: #### L [id number] ####[facility] ([facility])[address] [place] [address] Hematocrit (Bld) [Volume fraction] 32.3 % Low 39.0-55.0 [facility] Comment on above: Performed By: #### L [id number] ####[facility] ([facility])[address] [place] [address] Hemoglobin (Bld) [Mass/Vol] 10.0 g/dL Low 13.0-17.0 [facility] Comment on above: Performed By: #### L [id number] ####[facility] [place] [address] MCH (RBC) [Entitic mass] 28.1 pg Normal 27.0-33.0 [facility] Comment on above: Performed By: #### L [id number] ####[facility] ([facility])[address] [place] [address] MCV (RBC) [Entitic vol] 90.7 fL Normal 82.0-98.0 [facility] Comment on above: Performed By: #### L [id number] ####[facility] ([facility])[address] [place] [address] NRBC (PER 100 WBCS) BY AUTOMATED COUNT 0.0 % Normal 0 [facility] Comment on above: Performed By: #### L [id number] ####[facility] [facility] ([facility])[address] [place] [address] PLATELETS (10*3/UL) IN BLOOD AUTOMATED COUNT 134 10*3/uL Low 150-400 [facility] Comment on above: Performed By: #### L [id number] ####[facility] ([facility])[address] [place] [address] RBC (Bld) [#/Vol] 3.56 10*6/uL Low 4.20-5.70 [facility] Comment on above: Performed By: #### L [id number] ####[facility] ([facility])[address] [place] [address] WBC (Bld) [#/Vol] 5.50 10*3/uL Normal 4.00-10.60 [facility] Comment on above: Performed By: #### L [id number] ####[facility] ([facility])[address] [place] [address] HEPATIC FUNCTION PANELon Albumin [Mass/Vol] 3.4 g/dL Low 3.5-5.7 [facility] Comment on above: Performed By: #### L [id number] ####[facility] ([facility])[address] [place] [address] ALP [Catalytic activity/Vol] 109 U/L High 34-104 [facility] Comment on above: Performed By: #### L [id number] ####[facility] ([facility])[address] [place] [address] ALT [Catalytic activity/Vol] 106 U/L High 7-52 [facility] Comment on above: Performed By: #### L [id number] ####[facility] ([facility])[address] [place] [address] AST [Catalytic activity/Vol] 32 U/L Normal 13-39 [facility] Comment on above: Performed By: #### L [id number] ####[facility] ([facility])[address] [place] [address] Bilirubin [Mass/Vol] 1.7 mg/dL High 0.3-1.0 [facility] Comment on above: Performed By: #### L [id number] ####[facility] ([facility])[address] [place] [address] Magnesium [Mass/Vol] 0.6 mg/dL High 0-0.2 [facility] Comment on above: Performed By: #### L [id number] ####[facility] ([facility])[address] [place] [address] Protein [Mass/Vol] 6.0 g/dL Normal 6.0-8.3 [facility] Comment on above: Performed By: #### L [id number] ####[facility] ([facility])[address] [place] [address] MANUAL DIFFERENTIALon 2024 ACANTHOCYTES PRESENCE IN BLOOD BY LIGHT MICROSCOPY Slight Normal [facility] Comment on above: Performed By: #### L [id number] ####[facility] ([facility])[address] [place] [address] ANISOCYTOSIS PRESENCE IN BLOOD BY LIGHT MICROSCOPY Moderate Normal [facility] Comment on above: Performed By: #### L [id number] ####[facility] ([facility])[address] [place] [address] BASOPHILS (10*3/UL) IN BLOOD BY CALCULATION 0.04 10*3/uL Normal 0.00-0.20 [facility] Comment on above: Performed By: #### L [id number] ####[facility] ([facility])[address] [place] [address] BASOPHILS/100 LEUKOCYTES IN BLOOD BY AUTOMATED COUNT 0.7 % Normal 0.0-1.0 [facility] Comment on above: Performed By: #### L [id number] ####[facility] ([facility])[address] [place] [address] ELLIPTOCYTES IN BLOOD BY LIGHT MICROSCOPY Slight Normal [facility] Comment on above: Performed By: #### L [id number] ####[facility] ([facility])[address] [place] [address] EOSINOPHILS (10*3/UL) IN BLOOD BY CALCULATION 0.15 10*3/uL Normal 0.00-0.50 [facility] Comment on above: Performed By: #### L [id number] ####[facility] ([facility])[address] [place] [address] EOSINOPHILS/100 LEUKOCYTES IN BLOOD BY AUTOMATED COUNT 2.7 % Normal 0.0-6.0 [facility] Comment on above: Performed By: #### L [id number] ####[facility] ([facility])[address] [place] [address] HYPOCHROMIA (PRESENCE) IN BLOOD BY LIGHT MICROSCOPY Slight Normal [facility] Comment on above: Performed By: #### L [id number] ####[facility] ([facility])[address] [place] [address] IMMATURE GRANULOCYTES (10*3/UL) IN BLOOD BY CALCULATION 0.03 10*3/uL Normal 0.00-0.20 [facility] Comment on above: Performed By: #### L [id number] ####[facility] ([facility])[address] [place] [address] IMMATURE GRANULOCYTES/100 LEUKOCYTES IN BLOOD BY AUTOMATED COUNT 0.5 % Normal 0.0-1.0 [facility] Comment on above: Performed By: #### L [id number] ####[facility] ([facility])[address] [place] [address] LYMPHOCYTES (10*3/UL) IN BLOOD BY CALCULATION 0.76 10*3/uL Low 1.20-4.00 [facility] Comment on above: Performed By: #### L [id number] ####[facility] ([facility])[address] [place] [address] LYMPHOCYTES/100 LEUKOCYTES IN BLOOD BY AUTOMATED COUNT 13.8 % Low 20.0-45.0 [facility] Comment on above: Performed By: #### L [id number] ####[facility] ([facility])[address] [place] [address] MONOCYTES (10*3/UL) IN BLOOD BY CALCUATION 0.57 10*3/uL Normal 0.10-1.00 [facility] Comment on above: Performed By: #### L [id number] ####[facility] ([facility])[address] [place] [address] MONOCYTES/100 LEUKOCYTES IN BLOOD BY AUTOMATED COUNT 10.4 % Normal 5.0-12.0 [facility] Comment on above: Performed By: #### L [id number] ####[facility] ([facility])[address] [place] [address] NEUTROPHILS (10*3/UL) IN BLOOD BY CALCULATION 4.0 10*3/uL Normal 1.6-7.6 [facility] Comment on above: Performed By: #### L [id number] ####[facility] ([facility])[address] [place] [address] NEUTROPHILS/100 LEUKOCYTES IN BLOOD BY AUTOMATED COUNT 71.9 % Normal 40.0-72.0 [facility] Comment on above: Performed By: #### L [id number] ####[facility] ([facility])[address] [place] [address] OVALOCYTES PRESENCE IN BLOOD BY LIGHT MICROSCOPY Slight Normal [facility] Comment on above: Performed By: #### L [id number] ####[facility] ([facility])[address] [place] [address] POIKILOCYTOSIS (PRESENCE) IN BLOOD BY LIGHT MICROSCOPY Moderate Normal [facility] Comment on above: Performed By: #### L [id number] ####[facility] ([facility])[address] [place] [address] POLYCHROMASIA IN BLOOD BY LIGHT MICROSCOPY Slight Normal [facility] Comment on above: Performed By: #### L [id number] ####[facility] ([facility])[address] [place] [address] SCHISTOCYTES (PRESENCE) IN BLOOD BY LIGHT MICROSCOPY Slight Normal [facility] Comment on above: Performed By: #### L [id number] ####[facility] ([facility])[address] [place] [address] TARGET CELLS IN BLOOD BY LIGHT MICROSCOPY Slight Normal [facility] Comment on above: Performed By: #### L [id number] ####[facility] ([facility])[address] [place] [address] 30on 10-09-2024 30 Normal [facility] 30 Normal [facility] 30 Normal [facility] CBC WITH AUTO DIFFERENTIALon 10-09-2024 Erythrocyte distribution width (RBC) [Ratio] 24.5 % High 11.5-15.0 [facility] Comment on above: Performed By: #### L [id number] ####[facility] ([facility])[address] [place] [address] ERYTHROCYTE MEAN CORPUSCULAR HEMOGLOBIN CONCENTRATION (G/DL) BY AUTOMATED 30.5 g/dL Low 32.0-35.0 [facility] Comment on above: Performed By: #### L [id number] ####[facility] ([facility])[address] [place] [address] Hematocrit (Bld) [Volume fraction] 34.7 % Low 39.0-55.0 [facility] Comment on above: Performed By: #### L [id number] ####[facility] ([facility])[address] [place] [address] Hemoglobin (Bld) [Mass/Vol] 10.6 g/dL Low 13.0-17.0 [facility] Comment on above: Performed By: #### L [id number] ####[facility] ([facility])[address] [place] [address] MCH (RBC) [Entitic mass] 28.1 pg Normal 27.0-33.0 [facility] Comment on above: Performed By: #### L [id number] ####[facility] ([facility])[address] [place] [address] MCV (RBC) [Entitic vol] 92.0 fL Normal 82.0-98.0 [facility] Comment on above: Performed By: #### L [id number] ####[facility] ([facility])[address] [place] [address] NRBC (PER 100 WBCS) BY AUTOMATED COUNT 0.0 % Normal 0 [facility] Comment on above: Performed By: #### L [id number] ####[facility] ([facility])[address] [place] [address] PLATELETS (10*3/UL) IN BLOOD AUTOMATED COUNT 117 10*3/uL Low 150-400 [facility] Comment on above: Performed By: #### L [id number] ####[facility] ([facility])[address] [place] [address] RBC (Bld) [#/Vol] 3.77 10*6/uL Low 4.20-5.70 [facility] Comment on above: Performed By: #### L [id number] ####[facility] ([facility])[address] [place] [address] WBC (Bld) [#/Vol] 4.93 10*3/uL Normal 4.00-10.60 [facility] Comment on above: Performed By: #### L [id number] ####[facility] ([facility])[address] [place] [address] MANUAL DIFFERENTIALon 2024 ANISOCYTOSIS PRESENCE IN BLOOD BY LIGHT MICROSCOPY Moderate Normal [facility] Comment on above: Performed By: #### L [id number] ####[facility] ([facility])[address] [place] [address] BASOPHILS (10*3/UL) IN BLOOD BY CALCULATION 0.03 10*3/uL Normal 0.00-0.20 [facility] Comment on above: Performed By: #### L [id number] ####[facility] ([facility])[address] [place] [address] BASOPHILS/100 LEUKOCYTES IN BLOOD BY AUTOMATED COUNT 0.6 % Normal 0.0-1.0 [facility] Comment on above: Performed By: #### L [id number] ####[facility] ([facility])[address] [place] [address] ELLIPTOCYTES IN BLOOD BY LIGHT MICROSCOPY Slight Normal [facility] Comment on above: Performed By: #### L [id number] ####[facility] ([facility])[address] [place] [address] EOSINOPHILS (10*3/UL) IN BLOOD BY CALCULATION 0.15 10*3/uL Normal 0.00-0.50 [facility] Comment on above: Performed By: #### L [id number] ####[facility] ([facility])[address] [place] [address] EOSINOPHILS/100 LEUKOCYTES IN BLOOD BY AUTOMATED COUNT 3.0 % Normal 0.0-6.0 [facility] Comment on above: Performed By: #### L [id number] ####[facility] ([facility])[address] [place] [address] HYPOCHROMIA (PRESENCE) IN BLOOD BY LIGHT MICROSCOPY Slight Normal [facility] Comment on above: Performed By: #### L [id number] ####[facility] ([facility])[address] [place] [address] IMMATURE GRANULOCYTES (10*3/UL) IN BLOOD BY CALCULATION 0.05 10*3/uL Normal 0.00-0.20 [facility] Comment on above: Performed By: #### L [id number] ####[facility] ([facility])[address] [place] [address] IMMATURE GRANULOCYTES/100 LEUKOCYTES IN BLOOD BY AUTOMATED COUNT 1.0 % Normal 0.0-1.0 [facility] Comment on above: Performed By: #### L [id number] ####[facility] ([facility])[address] [place] [address] LYMPHOCYTES (10*3/UL) IN BLOOD BY CALCULATION 0.83 10*3/uL Low 1.20-4.00 [facility] Comment on above: Performed By: #### L [id number] ####[facility] ([facility])[address] [place] [address] LYMPHOCYTES/100 LEUKOCYTES IN BLOOD BY AUTOMATED COUNT 16.8 % Low 20.0-45.0 [facility] Comment on above: Performed By: #### L [id number] ####[facility] ([facility])[address] [place] [address] MONOCYTES (10*3/UL) IN BLOOD BY CALCUATION 0.48 10*3/uL Normal 0.10-1.00 [facility] Comment on above: Performed By: #### L [id number] ####[facility] ([facility])[address] [place] [address] MONOCYTES/100 LEUKOCYTES IN BLOOD BY AUTOMATED COUNT 9.7 % Normal 5.0-12.0 [facility] Comment on above: Performed By: #### L [id number] ####[facility] ([facility])[address] [place] [address] NEUTROPHILS (10*3/UL) IN BLOOD BY CALCULATION 3.4 10*3/uL Normal 1.6-7.6 [facility] Comment on above: Performed By: #### L [id number] ####[facility] ([facility])[address] [place] [address] NEUTROPHILS/100 LEUKOCYTES IN BLOOD BY AUTOMATED COUNT 68.9 % Normal 40.0-72.0 [facility] Comment on above: Performed By: #### L [id number] ####[facility] ([facility])[address] [place] [address] OVALOCYTES PRESENCE IN BLOOD BY LIGHT MICROSCOPY Slight Normal [facility] Comment on above: Performed By: #### L [id number] ####[facility] ([facility])[address] [place] [address] POIKILOCYTOSIS (PRESENCE) IN BLOOD BY LIGHT MICROSCOPY Moderate Normal [facility] Comment on above: Performed By: #### L [id number] ####[facility] ([facility])[address] [place] [address] POLYCHROMASIA IN BLOOD BY LIGHT MICROSCOPY Slight Normal [facility] Comment on above: Performed By: #### L [id number] ####[facility] ([facility])[address] [place] [address] SCHISTOCYTES (PRESENCE) IN BLOOD BY LIGHT MICROSCOPY Slight Normal [facility] Comment on above: Performed By: #### L [id number] ####[facility] ([facility])[address] [place] [address] TARGET CELLS IN BLOOD BY LIGHT MICROSCOPY Slight Normal [facility] Comment on above: Performed By: #### L [id number] ####[facility] ([facility])[address] [place] [address] NURSNOTEon 10-09-2024 NURSNOTE Patient and daughter s have agreed to restart the Mexiletine at this time. This RN notified Cardiology. [facility] 30on 10-08-2024 30 [facility] 30 [facility] 30 [facility] 30 [facility] ANTI-XA (HEPARIN LEVEL)on HEPARIN UNFRACTIONATED (U/ML) IN PPP BY CHROMOGENIC METHOD 0.40 IU/mL Normal 0.3-0.7 [facility] Comment on above: Result Comment: [place] roxaban and Apixaban will interfere with the anti Xa assay used to monitor UFH and LMWH. Performed By: #### L [id number] ####[facility] ([facility])[address] [place] [address] CBC WITH AUTO DIFFERENTIALon 10-08-2024 Erythrocyte distribution width (RBC) [Ratio] 24.0 % High 11.5-15.0 [facility] Comment on above: Performed By: #### L [id number] ####[facility] ([facility])[address] [place] [address] ERYTHROCYTE MEAN CORPUSCULAR HEMOGLOBIN CONCENTRATION (G/DL) BY AUTOMATED 30.4 g/dL Low 32.0-35.0 [facility] Comment on above: Performed By: #### L [id number] ####[facility] ([facility])[address] [place] [address] Hematocrit (Bld) [Volume fraction] 34.5 % Low 39.0-55.0 [facility] Comment on above: Performed By: #### L [id number] ####[facility] ([facility])[address] [place] [address] Hemoglobin (Bld) [Mass/Vol] 10.5 g/dL Low 13.0-17.0 [facility] Comment on above: Performed By: #### L [id number] ####[facility] ([facility])[address] [place] [address] IMMATURE PLATELET FRACTION % 3.0 % Normal 0.8-6.3 [facility] Comment on above: Performed By: #### L [id number] ####[facility] ([facility])[address] [place] [address] MCH (RBC) [Entitic mass] 28.5 pg Normal 27.0-33.0 [facility] Comment on above: Performed By: #### L [id number] ####[facility] ([facility])[address] [place] [address] MCV (RBC) [Entitic vol] 93.5 fL Normal 82.0-98.0 [facility] Comment on above: Performed By: #### L [id number] ####[facility] ([facility])[address] [place] [address] NRBC (PER 100 WBCS) BY AUTOMATED COUNT 0.0 % Normal 0 [facility] Comment on above: Performed By: #### L [id number] ####[facility] ([facility])[address] [place] [address] PLATELETS (10*3/UL) IN BLOOD AUTOMATED COUNT 104 10*3/uL Low 150-400 [facility] Comment on above: Performed By: #### L [id number] ####[facility] ([facility])[address] [place] [address] RBC (Bld) [#/Vol] 3.69 10*6/uL Low 4.20-5.70 [facility] Comment on above: Performed By: #### L [id number] ####[facility] ([facility])[address] [place] [address] WBC (Bld) [#/Vol] 5.84 10*3/uL Normal 4.00-10.60 [facility] Comment on above: Performed By: #### L [id number] ####[facility] ([facility])[address] [place] [address] CNPNon 10-08-2024 CNPN Normal [facility] [place] [place] 10-08-2024 Albumin [Mass/Vol] 3.6 g/dL Normal 3.5-5.7 [facility] Comment on above: Performed By: #### L [id number] ####[facility] ([facility])[address] [place] [address] ALP [Catalytic activity/Vol] 110 U/L High 34-104 [facility] Comment on above: Performed By: #### L [id number] ####[facility] ([facility])[address] [place] [address] ALT [Catalytic activity/Vol] 161 U/L High 7-52 [facility] Comment on above: Performed By: #### L [id number] ####[facility] ([facility])[address] [place] [address] Anion gap [Moles/Vol] 11 mmol/L Normal 7-20 [facility] Comment on above: Performed By: #### L [id number] ####[facility] ([facility])[address] [place] [address] AST [Catalytic activity/Vol] 47 U/L High 13-39 [facility] Comment on above: Performed By: #### L [id number] ####[facility] ([facility])[address] [place] [address] Bilirubin [Mass/Vol] 1.7 mg/dL High 0.3-1.0 [facility] Comment on above: Performed By: #### L [id number] ####[facility] ([facility])[address] [place] [address] Calcium [Mass/Vol] 9.0 mg/dL Normal 8.6-10.3 [facility] Comment on above: Performed By: #### L [id number] ####[facility] ([facility])[address] [place] [address] Chloride [Moles/Vol] 100 mmol/L Normal 98-107 [facility] Comment on above: Performed By: #### L [id number] ####[facility] ([facility])[address] [place] [address] CO2 [Moles/Vol] 28 mmol/L Normal 21-31 [facility] Comment on above: Performed By: #### L [id number] ####[facility] ([facility])[address] [place] [address] Creatinine [Mass/Vol] 1.82 mg/dL High 0.70-1.30 [facility] Comment on above: Performed By: #### L [id number] ####[facility] ([facility])[address] [place] [address] GLOMERULAR FILTRATION RATE ML/MIN/1.73 SQ M.PREDICTED 36.6 mL/min/1.73m*2 Low >60.0 [facility] Comment on above: Result Comment: The [facility]???s estimated glomerular filtration rate (eGFR) will no [...] of individuals. Performed By: #### L [id number] ####[facility] ([facility])[address] [place] [address] Glucose [Mass/Vol] 83 mg/dL Normal 70-100 [facility] Comment on above: Performed By: #### L [id number] ####[facility] ([facility])[address] [place] [address] Potassium [Moles/Vol] 4.6 mmol/L Normal 3.5-5.1 [facility] Comment on above: Performed By: #### L [id number] ####[facility] ([facility])[address] [place] [address] Protein [Mass/Vol] 6.1 g/dL Normal 6.0-8.3 [facility] Comment on above: Performed By: #### L [id number] ####[facility] ([facility])[address] [place] [address] Sodium [Moles/Vol] 134 mmol/L Low 136-145 [facility] Comment on above: Performed By: #### L [id number] ####[facility] ([facility])[address] [place] [address] Urea nitrogen [Mass/Vol] 38 mg/dL High 7-25 [facility] Comment on above: Performed By: #### L [id number] ####[facility] ([facility])[address] [place] [address] UREA NITROGEN/CREATININE (MASS RATIO) IN SER/PLAS 20.9 Normal [facility] Comment on above: Performed By: #### L [id number] ####[facility] ([facility])[address] [place] [address] MANUAL DIFFERENTIALon 2024 ACANTHOCYTES PRESENCE IN BLOOD BY LIGHT MICROSCOPY Moderate Normal [facility] Comment on above: Performed By: #### L [id number] ####[facility] ([facility])[address] [place] [address] ANISOCYTOSIS PRESENCE IN BLOOD BY LIGHT MICROSCOPY Moderate Normal [facility] Comment on above: Performed By: #### L [id number] ####[facility] ([facility])[address] [place] [address] BASOPHILS (10*3/UL) IN BLOOD BY CALCULATION 0.02 10*3/uL Normal 0.00-0.20 [facility] Comment on above: Performed By: #### L [id number] ####[facility] ([facility])[address] [facility] [address] BASOPHILS/100 LEUKOCYTES IN BLOOD BY AUTOMATED COUNT 0.3 % Normal 0.0-1.0 [facility] Comment on above: Performed By: #### L [id number] ####[facility] ([facility])[address] [place] [address] HAMZAH CELLS PRESENCE IN BLOOD BY LIGHT MICROSCOPY Slight Normal [facility] Comment on above: Performed By: #### L [id number] ####[facility] ([facility])[address] [facility] [address] ELLIPTOCYTES IN BLOOD BY LIGHT MICROSCOPY Slight Normal [facility] Comment on above: Performed By: #### L [id number] ####[facility] ([facility])[address] [place] [address] EOSINOPHILS (10*3/UL) IN BLOOD BY CALCULATION 0.16 10*3/uL Normal 0.00-0.50 [facility] Comment on above: Performed By: #### L [id number] ####[facility] ([facility])[address] [place] [address] EOSINOPHILS/100 LEUKOCYTES IN BLOOD BY AUTOMATED COUNT 2.7 % Normal 0.0-6.0 [facility] Comment on above: Performed By: #### L [id number] ####[facility] [facility] ([facility])[address] [facility] [place] [address] HYPOCHROMIA (PRESENCE) IN BLOOD BY LIGHT MICROSCOPY Slight Normal [facility] Comment on above: Performed By: #### L [id number] ####[facility] ([facility])[address] [place] [address] IMMATURE GRANULOCYTES (10*3/UL) IN BLOOD BY CALCULATION 0.05 10*3/uL Normal 0.00-0.20 [facility] Comment on above: Performed By: #### L [id number] ####[facility] ([facility])[address] [place] [address] IMMATURE GRANULOCYTES/100 LEUKOCYTES IN BLOOD BY AUTOMATED COUNT 0.9 % Normal 0.0-1.0 [facility] Comment on above: Performed By: #### L [id number] ####[facility] ([facility])[address] [place] [address] LYMPHOCYTES (10*3/UL) IN BLOOD BY CALCULATION 1.00 10*3/uL Low 1.20-4.00 [facility] Comment on above: Performed By: #### L [id number] ####[facility] ([facility])[address] [place] [address] LYMPHOCYTES/100 LEUKOCYTES IN BLOOD BY AUTOMATED COUNT 17.1 % Low 20.0-45.0 [facility] Comment on above: Performed By: #### L [id number] ####[facility] ([facility])[address] [place], [place] [address] MONOCYTES (10*3/UL) IN BLOOD BY CALCUATION 0.58 10*3/uL Normal 0.10-1.00 [facility] Comment on above: Performed By: #### L [id number] ####[facility] ([facility])[address] [place] [address] MONOCYTES/100 LEUKOCYTES IN BLOOD BY AUTOMATED COUNT 9.9 % Normal 5.0-12.0 [facility] Comment on above: Performed By: #### L [id number] ####[facility] ([facility])[address] [place], [place] [address] NEUTROPHILS (10*3/UL) IN BLOOD BY CALCULATION 4.0 10*3/uL Normal 1.6-7.6 [facility] Comment on above: Performed By: #### L [id number] ####[facility] ([facility])[address] [place] [address] NEUTROPHILS/100 LEUKOCYTES IN BLOOD BY AUTOMATED COUNT 69.1 % Normal 40.0-72.0 [facility] Comment on above: Performed By: #### L [id number] ####[facility] ([facility])[address] [place] [address] OVALOCYTES PRESENCE IN BLOOD BY LIGHT MICROSCOPY Slight Normal [facility] Comment on above: Performed By: #### L [id number] ####[facility] ([facility])[address] [place] [address] POIKILOCYTOSIS (PRESENCE) IN BLOOD BY LIGHT MICROSCOPY Moderate Normal [facility] Comment on above: Performed By: #### L [id number] ####[facility] ([facility])[address] [place] [address] POLYCHROMASIA IN BLOOD BY LIGHT MICROSCOPY Slight Normal [facility] Comment on above: Performed By: #### L [id number] ####[facility] ([facility])[address] [place] [address] SCHISTOCYTES (PRESENCE) IN BLOOD BY LIGHT MICROSCOPY Slight Normal [facility] Comment on above: Performed By: #### L [id number] ####[facility] ([facility])[address] [place] [address] TARGET CELLS IN BLOOD BY LIGHT MICROSCOPY Slight Normal [facility] Comment on above: Performed By: #### L [id number] ####[facility] ([facility])[address] [place] [address] 30on 10-07-2024 30 Normal [facility] 30 Normal [facility] ANTI-XA (HEPARIN LEVEL)on HEPARIN UNFRACTIONATED (U/ML) IN PPP BY CHROMOGENIC METHOD 0.41 IU/mL Normal 0.3-0.7 [facility] Comment on above: Result Comment: [place] roxaban and Apixaban will interfere with the anti Xa assay used to monitor UFH and LMWH. Performed By: #### L [id number] ####[facility] ([facility])[address] [place] [address] CBC WITH AUTO DIFFERENTIALon 10-07-2024 Erythrocyte distribution width (RBC) [Ratio] 23.9 % High 11.5-15.0 [facility] Comment on above: Performed By: #### L [id number] ####[facility] ([facility])[address] [place] [address] ERYTHROCYTE MEAN CORPUSCULAR HEMOGLOBIN CONCENTRATION (G/DL) BY AUTOMATED 31.0 g/dL Low 32.0-35.0 [facility] Comment on above: Performed By: #### L [id number] ####[facility] ([facility])[address] [place] [address] Hematocrit (Bld) [Volume fraction] 32.9 % Low 39.0-55.0 [facility] Comment on above: Performed By: #### L [id number] ####[facility] ([facility])[address] [place] [address] Hemoglobin (Bld) [Mass/Vol] 10.2 g/dL Low 13.0-17.0 [facility] Comment on above: Performed By: #### L [id number] ####[facility] ([facility])[address] [place] [address] IMMATURE PLATELET FRACTION % 2.8 % Normal 0.8-6.3 [facility] Comment on above: Performed By: #### L [id number] ####[facility] ([facility])[address] [place] [address] MCH (RBC) [Entitic mass] 27.8 pg Normal 27.0-33.0 [facility] Comment on above: Performed By: #### L [id number] ####[facility] ([facility])[address] [place] [address] MCV (RBC) [Entitic vol] 89.6 fL Normal 82.0-98.0 [facility] Comment on above: Performed By: #### L [id number] ####[facility] ([facility])[address] [place] [address] NRBC (PER 100 WBCS) BY AUTOMATED COUNT 0.0 % Normal 0 [facility] Comment on above: Performed By: #### L [id number] ####[facility] ([facility])[address] [place] [address] PLATELETS (10*3/UL) IN BLOOD AUTOMATED COUNT 102 10*3/uL Low 150-400 [facility] Comment on above: Performed By: #### L [id number] ####[facility] ([facility])[address] [place] [address] RBC (Bld) [#/Vol] 3.67 10*6/uL Low 4.20-5.70 [facility] Comment on above: Performed By: #### L [id number] ####[facility] ([facility])[address] [place] [address] WBC (Bld) [#/Vol] 6.01 10*3/uL Normal 4.00-10.60 [facility] Comment on above: Performed By: #### L [id number] ####[facility] ([facility])[address] [place] [address] CNPNon 10-07-2024 CNPN Normal [facility] METABOLIC PANE Aldo 10-07-2024 Albumin [Mass/Vol] 3.7 g/dL Normal 3.5-5.7 [facility] Comment on above: Performed By: #### L [id number] ####[facility] ([facility])[address] [place] [address] ALP [Catalytic activity/Vol] 122 U/L High 34-104 [facility] Comment on above: Performed By: #### L [id number] ####[facility] ([facility])[address] [place] [address] ALT [Catalytic activity/Vol] 192 U/L High 7-52 [facility] Comment on above: Performed By: #### L [id number] ####[facility] ([facility])[address] [place] [address] Anion gap [Moles/Vol] 12 mmol/L Normal 7-20 [facility] Comment on above: Performed By: #### L [id number] ####[facility] ([facility])[address] [place] [address] AST [Catalytic activity/Vol] 57 U/L High 13-39 [facility] Comment on above: Performed By: #### L [id number] ####[facility] ([facility])[address] [place] [address] Bilirubin [Mass/Vol] 1.8 mg/dL High 0.3-1.0 [facility] Comment on above: Performed By: #### L [id number] ####[facility] ([facility])[address] [place] [address] Calcium [Mass/Vol] 9.1 mg/dL Normal 8.6-10.3 [facility] Comment on above: Performed By: #### L [id number] ####[facility] ([facility])[address] [place] [address] Chloride [Moles/Vol] 98 mmol/L Normal 98-107 [facility] Comment on above: Performed By: #### L [id number] ####[facility] ([facility])[address] [place] [address] CO2 [Moles/Vol] 28 mmol/L Normal 21-31 [facility] Comment on above: Performed By: #### L [id number] ####[facility] ([facility])[address] [place] [address] Creatinine [Mass/Vol] 1.89 mg/dL High 0.70-1.30 [facility] Comment on above: Performed By: #### L [id number] ####[facility] ([facility])[address] [place] [address] GLOMERULAR FILTRATION RATE ML/MIN/1.73 SQ M.PREDICTED 35.0 mL/min/1.73m*2 Low >60.0 [facility] Comment on above: Result Comment: The [facility]???s estimated glomerular filtration rate (eGFR) will no [...] of individuals. Performed By: #### L [id number] ####[facility] ([facility])[address] [place] [address] Glucose [Mass/Vol] 128 mg/dL High 70-100 [facility] Comment on above: Performed By: #### L [id number] ####[facility] ([facility])[address] [place] [address] Potassium [Moles/Vol] 4.6 mmol/L Normal 3.5-5.1 [facility] Comment on above: Performed By: #### L [id number] ####[facility] ([facility])[address] [place] [address] Protein [Mass/Vol] 6.3 g/dL Normal 6.0-8.3 [facility] Comment on above: Performed By: #### L [id number] ####[facility] ([facility])[address] [place] [address] Sodium [Moles/Vol] 133 mmol/L Low 136-145 [facility] Comment on above: Performed By: #### L [id number] ####[facility] ([facility])[address] [place] [address] Urea nitrogen [Mass/Vol] 38 mg/dL High 7-25 [facility] Comment on above: Performed By: #### L [id number] ####[facility] ([facility])[address] [place] [address] UREA NITROGEN/CREATININE (MASS RATIO) IN SER/PLAS 20.1 Normal [facility] Comment on above: Performed By: #### L [id number] ####[facility] ([facility])[address] [place] [address] Albumin [Mass/Vol] 3.5 g/dL Normal 3.5-5.7 [facility] Comment on above: Performed By: #### L [id number] ####[facility] ([facility])[address] [place] [address] ALP [Catalytic activity/Vol] 107 U/L High 34-104 [facility] Comment on above: Performed By: #### L [id number] ####[facility] ([facility])[address] [place] [address] ALT [Catalytic activity/Vol] 196 U/L High 7-52 [facility] Comment on above: Performed By: #### L [id number] ####[facility] ([facility])[address] [place] [address] Anion gap [Moles/Vol] 11 mmol/L Normal 7-20 [facility] Comment on above: Performed By: #### L [id number] ####[facility] ([facility])[address] [place] [address] AST [Catalytic activity/Vol] 57 U/L High 13-39 [facility] Comment on above: Performed By: #### L [id number] ####[facility] ([facility])[address] [place] [address] Bilirubin [Mass/Vol] 1.8 mg/dL High 0.3-1.0 [facility] Comment on above: Performed By: #### L [id number] ####[facility] ([facility])[address] [place] [address] Calcium [Mass/Vol] 8.6 mg/dL Normal 8.6-10.3 [facility] Comment on above: Performed By: #### L [id number] ####[facility] ([facility])[address] [place] [address] Chloride [Moles/Vol] 100 mmol/L Normal 98-107 [facility] Comment on above: Performed By: #### L [id number] ####[facility] ([facility])[address] [place] [address] CO2 [Moles/Vol] 28 mmol/L Normal 21-31 [facility] Comment on above: Performed By: #### L [id number] ####[facility] ([facility])[address] [place] [address] Creatinine [Mass/Vol] 1.86 mg/dL High 0.70-1.30 [facility] Comment on above: Performed By: #### L [id number] ####[facility] ([facility])[address] [place] [address] GLOMERULAR FILTRATION RATE ML/MIN/1.73 SQ M.PREDICTED 35.7 mL/min/1.73m*2 Low >60.0 [facility] Comment on above: Result Comment: The [facility]???s estimated glomerular filtration rate (eGFR) will no [...] of individuals. Performed By: #### L [id number] ####[facility] ([facility])[address] [place] [address] Glucose [Mass/Vol] 80 mg/dL Normal 70-100 [facility] Comment on above: Performed By: #### L [id number] ####[facility] ([facility])[address] [place] [address] Potassium [Moles/Vol] 4.4 mmol/L Normal 3.5-5.1 [facility] Comment on above: Performed By: #### L [id number] ####[facility] ([facility])[address] [place] [address] Protein [Mass/Vol] 5.9 g/dL Low 6.0-8.3 [facility] Comment on above: Performed By: #### L [id number] ####[facility] ([facility])[address] [place] [address] Sodium [Moles/Vol] 135 mmol/L Low 136-145 [facility] Comment on above: Performed By: #### L [id number] ####[facility] ([facility])[address] [place] [address] Urea nitrogen [Mass/Vol] 39 mg/dL High 7-25 [facility] Comment on above: Performed By: #### L [id number] ####[facility] ([facility])[address] [place] [address] UREA NITROGEN/CREATININE (MASS RATIO) IN SER/PLAS 21.0 Normal [facility] Comment on above: Performed By: #### L [id number] ####[facility] ([facility])[address] [place] [address] MAGNESIUMon 10-07-2024 Magnesium [Mass/Vol] 1.9 mg/dL Normal 1.9-2.7 [facility] Comment on above: Performed By: #### L [id number] ####[facility] ([facility])[address] [place] [address] MANUAL DIFFERENTIALon 2024 ACANTHOCYTES PRESENCE IN BLOOD BY LIGHT MICROSCOPY Slight Normal [facility] Comment on above: Performed By: #### L [id number] ####[facility] ([facility])[address] [place] [address] ANISOCYTOSIS PRESENCE IN BLOOD BY LIGHT MICROSCOPY Moderate Normal [facility] Comment on above: Performed By: #### L [id number] ####[facility] ([facility])[address] [place] [address] BASOPHILS (10*3/UL) IN BLOOD BY CALCULATION 0.03 10*3/uL Normal 0.00-0.20 [facility] Comment on above: Performed By: #### L [id number] ####[facility] ([facility])[address] [place] [address] BASOPHILS/100 LEUKOCYTES IN BLOOD BY AUTOMATED COUNT 0.6 % Normal 0.0-1.0 [facility] Comment on above: Performed By: #### L [id number] ####[facility] ([facility])[address] [place] [address] ELLIPTOCYTES IN BLOOD BY LIGHT MICROSCOPY Slight Normal [facility] Comment on above: Performed By: #### L [id number] ####[facility] ([facility])[address] [place], [place] [address] EOSINOPHILS (10*3/UL) IN BLOOD BY CALCULATION 0.14 10*3/uL Normal 0.00-0.50 [facility] Comment on above: Performed By: #### L [id number] ####[facility] ([facility])[address] [place] [address] EOSINOPHILS/100 LEUKOCYTES IN BLOOD BY AUTOMATED COUNT 2.6 % Normal 0.0-6.0 [facility] Comment on above: Performed By: #### L [id number] ####[facility] ([facility])[address] [place] [address] IMMATURE GRANULOCYTES (10*3/UL) IN BLOOD BY CALCULATION 0.07 10*3/uL Normal 0.00-0.20 [facility] Comment on above: Performed By: #### L [id number] ####[facility] ([facility])[address] [place] [address] IMMATURE GRANULOCYTES/100 LEUKOCYTES IN BLOOD BY AUTOMATED COUNT 1.3 % High 0.0-1.0 [facility] Comment on above: Performed By: #### L [id number] ####[facility] ([facility])[address] [place] [address] LYMPHOCYTES (10*3/UL) IN BLOOD BY CALCULATION 0.95 10*3/uL Low 1.20-4.00 [facility] Comment on above: Performed By: #### L [id number] ####[facility] ([facility])[address] [place] [address] LYMPHOCYTES/100 LEUKOCYTES IN BLOOD BY AUTOMATED COUNT 17.9 % Low 20.0-45.0 [facility] Comment on above: Performed By: #### L [id number] ####[facility] ([facility])[address] [place] [address] MONOCYTES (10*3/UL) IN BLOOD BY CALCUATION 0.42 10*3/uL Normal 0.10-1.00 [facility] Comment on above: Performed By: #### L [id number] ####[facility] ([facility])[address] [place] [address] MONOCYTES/100 LEUKOCYTES IN BLOOD BY AUTOMATED COUNT 7.9 % Normal 5.0-12.0 [facility] Comment on above: Performed By: #### L [id number] ####[facility] ([facility])[address] [place] [address] NEUTROPHILS (10*3/UL) IN BLOOD BY CALCULATION 3.7 10*3/uL Normal 1.6-7.6 [facility] Comment on above: Performed By: #### L [id number] ####[facility] ([facility])[address] [place] [address] NEUTROPHILS/100 LEUKOCYTES IN BLOOD BY AUTOMATED COUNT 69.7 % Normal 40.0-72.0 [facility] Comment on above: Performed By: #### L [id number] ####[facility] ([facility])[address] [place] [address] OVALOCYTES PRESENCE IN BLOOD BY LIGHT MICROSCOPY Slight Normal [facility] Comment on above: Performed By: #### L [id number] ####[facility] ([facility])[address] [place] [address] POIKILOCYTOSIS (PRESENCE) IN BLOOD BY LIGHT MICROSCOPY Moderate Normal [facility] Comment on above: Performed By: #### L [id number] ####[facility] ([facility])[address] [place] [address] POLYCHROMASIA IN BLOOD BY LIGHT MICROSCOPY Slight Normal [facility] Comment on above: Performed By: #### L [id number] ####[facility] ([facility])[address] [place] [address] PHOSPHORUSon 10-07-2024 Magnesium [Mass/Vol] 2.0 mg/dL Low 2.5-5.0 [facility] Comment on above: Performed By: #### L [id number] ####[facility] ([facility])[address] [place] [address] 30on 10-06-2024 30 Normal [facility] ANTI-XA (HEPARIN LEVEL)on HEPARIN UNFRACTIONATED (U/ML) IN PPP BY CHROMOGENIC METHOD 0.43 IU/mL Normal 0.3-0.7 [facility] Comment on above: Result Comment: [place] roxaban and Apixaban will interfere with the anti Xa assay used to monitor UFH and LMWH. Performed By: #### L [id number] ####[facility] ([facility])[address] [place] [address] CBC WITH AUTO DIFFERENTIALon 10-06-2024 Erythrocyte distribution width (RBC) [Ratio] 23.7 % High 11.5-15.0 [facility] Comment on above: Performed By: #### L [id number] ####[facility] ([facility])[address] [place] [address] ERYTHROCYTE MEAN CORPUSCULAR HEMOGLOBIN CONCENTRATION (G/DL) BY AUTOMATED 30.8 g/dL Low 32.0-35.0 [facility] Comment on above: Performed By: #### L [id number] ####[facility] ([facility])[address] [place] [address] Hematocrit (Bld) [Volume fraction] 32.8 % Low 39.0-55.0 [facility] Comment on above: Performed By: #### L [id number] ####[facility] ([facility])[address] [place] [address] Hemoglobin (Bld) [Mass/Vol] 10.1 g/dL Low 13.0-17.0 [facility] Comment on above: Performed By: #### L [id number] ####[facility] ([facility])[address] [place] [address] IMMATURE PLATELET FRACTION % 3.1 % Normal 0.8-6.3 [facility] Comment on above: Performed By: #### L [id number] ####[facility] ([facility])[address] [place] [address] MCH (RBC) [Entitic mass] 27.7 pg Normal 27.0-33.0 [facility] Comment on above: Performed By: #### L [id number] ####[facility] ([facility])[address] [place] [address] MCV (RBC) [Entitic vol] 90.1 fL Normal 82.0-98.0 [facility] Comment on above: Performed By: #### L [id number] ####[facility] ([facility])[address] [place] [address] NRBC (PER 100 WBCS) BY AUTOMATED COUNT 0.0 % Normal 0 [facility] Comment on above: Performed By: #### L [id number] ####[facility] ([facility])[address] [place] [address] PLATELETS (10*3/UL) IN BLOOD AUTOMATED COUNT 103 10*3/uL Low 150-400 [facility] Comment on above: Performed By: #### L [id number] ####[facility] ([facility])[address] [place] [address] RBC (Bld) [#/Vol] 3.64 10*6/uL Low 4.20-5.70 [facility] Comment on above: Performed By: #### L [id number] ####[facility] ([facility])[address] [place] [address] WBC (Bld) [#/Vol] 6.13 10*3/uL Normal 4.00-10.60 [facility] Comment on above: Performed By: #### L [id number] ####[facility] ([facility] [place] [address] COMPREHENSIVE METABOLIC PANE Aldo 10-06-2024 Albumin [Mass/Vol] 3.6 g/dL Normal 3.5-5.7 [facility] Comment on above: Performed By: #### L [id number] ####[facility] ([facility])[address] [place] [address] ALP [Catalytic activity/Vol] 105 U/L High 34-104 [facility] Comment on above: Performed By: #### L [id number] ####[facility] ([facility])[address] [place] [address] ALT [Catalytic activity/Vol] 234 U/L High 7-52 [facility] Comment on above: Performed By: #### L [id number] ####[facility] ([facility])[address] [place] [address] Anion gap [Moles/Vol] 11 mmol/L Normal 7-20 [facility] Comment on above: Performed By: #### L [id number] ####[facility] (BEAKER)[address] [place] [address] AST [Catalytic activity/Vol] 70 U/L High 13-39 [facility] Comment on above: Performed By: #### L [id number] ####[facility] (BEAKER)[address] [place] [address] Bilirubin [Mass/Vol] 1.9 mg/dL High 0.3-1.0 [facility] Comment on above: Performed By: #### L [id number] ####[facility] [facility] ([facility])[address] [place] [address] Calcium [Mass/Vol] 8.7 mg/dL Normal 8.6-10.3 [facility] Comment on above: Performed By: #### L [id number] ####[facility] ([facility])[address] [place] [address] Chloride [Moles/Vol] 98 mmol/L Normal 98-107 [facility] Comment on above: Performed By: #### L [id number] ####[facility] ([facility])[address] [place] [address] CO2 [Moles/Vol] 28 mmol/L Normal 21-31 [facility] Comment on above: Performed By: #### L [id number] ####[facility] ([facility])[address] [place] [address] Creatinine [Mass/Vol] 1.81 mg/dL High 0.70-1.30 [facility] Comment on above: Performed By: #### L [id number] ####[facility] ([facility])[address] [place] [address] GLOMERULAR FILTRATION RATE ML/MIN/1.73 SQ M.PREDICTED 36.9 mL/min/1.73m*2 Low >60.0 [facility] Comment on above: Result Comment: The [facility]???s estimated glomerular filtration rate (eGFR) will no [...] of individuals. Performed By: #### L [id number] ####[facility] ([facility])[address] [place] [address] Glucose [Mass/Vol] 78 mg/dL Normal 70-100 [facility] Comment on above: Performed By: #### L [id number] ####[facility] ([facility])[address] [place] [address] Potassium [Moles/Vol] 4.3 mmol/L Normal 3.5-5.1 [facility] Comment on above: Performed By: #### L [id number] ####[facility] ([facility])[address] [place] [address] Protein [Mass/Vol] 6.1 g/dL Normal 6.0-8.3 [facility] Comment on above: Performed By: #### L [id number] ####[facility] ([facility])[address] [place] [address] Sodium [Moles/Vol] 133 mmol/L Low 136-145 [facility] Comment on above: Performed By: #### L [id number] ####[facility] ([facility])[address] [place] [address] Urea nitrogen [Mass/Vol] 39 mg/dL High 7-25 [facility] Comment on above: Performed By: #### L [id number] ####[facility] ([facility])[address] [place] [address] UREA NITROGEN/CREATININE (MASS RATIO) IN SER/PLAS 21.5 Normal [facility] Comment on above: Performed By: #### L [id number] ####[facility] ([facility])[address] [place] [address] Albumin [Mass/Vol] 3.3 g/dL Low 3.5-5.7 [facility] Comment on above: Performed By: #### L [id number] ####[facility] ([facility])[address] [place] [address] ALP [Catalytic activity/Vol] 100 U/L Normal 34-104 [facility] Comment on above: Performed By: #### L [id number] ####[facility] ([facility])[address] [place] [address] ALT [Catalytic activity/Vol] 232 U/L High 7-52 [facility] Comment on above: Performed By: #### L [id number] ####[facility] ([facility])[address] [place] [address] Anion gap [Moles/Vol] 12 mmol/L Normal 7-20 [facility] Comment on above: Performed By: #### L [id number] ####[facility] ([facility])[address] [place] [address] AST [Catalytic activity/Vol] 71 U/L High 13-39 [facility] Comment on above: Performed By: #### L [id number] ####[facility] ([facility])[address] [place] [address] Bilirubin [Mass/Vol] 1.7 mg/dL High 0.3-1.0 [facility] Comment on above: Performed By: #### L [id number] ####[facility] ([facility])[address] [place] [address] Calcium [Mass/Vol] 8.3 mg/dL Low 8.6-10.3 [facility] Comment on above: Performed By: #### L [id number] ####[facility] ([facility])[address] [place] [address] Chloride [Moles/Vol] 100 mmol/L Normal 98-107 [facility] Comment on above: Performed By: #### L [id number] ####[facility] ([facility])[address] [place] [address] CO2 [Moles/Vol] 28 mmol/L Normal 21-31 [facility] Comment on above: Performed By: #### L [id number] ####[facility] ([facility])[address] [facility] [address] Creatinine [Mass/Vol] 1.88 mg/dL High 0.70-1.30 [facility] Comment on above: Performed By: #### L [id number] ####[facility] ([facility])[address] [place] [address] GLOMERULAR FILTRATION RATE ML/MIN/1.73 SQ M.PREDICTED 35.2 mL/min/1.73m*2 Low >60.0 [facility] Comment on above: Result Comment: The [facility]???s estimated glomerular filtration rate (eGFR) will no [...] of individuals. Performed By: #### L [id number] ####[facility] ([facility])[address] [place] [address] Glucose [Mass/Vol] 101 mg/dL High 70-100 [facility] Comment on above: Performed By: #### L [id number] ####[facility] ([facility])[address] [place] [address] Potassium [Moles/Vol] 3.7 mmol/L Normal 3.5-5.1 [facility] Comment on above: Performed By: #### L [id number] ####[facility] ([facility])[address] [place] [address] Protein [Mass/Vol] 5.6 g/dL Low 6.0-8.3 [facility] Comment on above: Performed By: #### L [id number] ####[facility] ([facility])[address] [place] [address] Sodium [Moles/Vol] 136 mmol/L Normal 136-145 [facility] Comment on above: Performed By: #### L [id number] ####[facility] ([facility])[address] [place] [address] Urea nitrogen [Mass/Vol] 41 mg/dL High 7-25 [facility] Comment on above: Performed By: #### L [id number] ####[facility] ([facility])[address] [place] [address] UREA NITROGEN/CREATININE (MASS RATIO) IN SER/PLAS 21.8 Normal [facility] Comment on above: Performed By: #### L [id number] ####[facility] ([facility])[address] [place] [address] MAGNESIUMon 10-06-2024 Magnesium [Mass/Vol] 1.9 mg/dL Normal 1.9-2.7 [facility] Comment on above: Performed By: #### L [id number] ####[facility] ([facility])[address] [place] [address] Magnesium [Mass/Vol] 1.8 mg/dL Low 2.5-5.0 [facility] Comment on above: Performed By: #### L [id number] ####[facility] ([facility])[address] [place] [address] Performed By: #### L [id number] ####[facility] ([facility])[address] [place] [address] MANUAL DIFFERENTIALon 2024 ACANTHOCYTES PRESENCE IN BLOOD BY LIGHT MICROSCOPY Moderate Normal [facility] Comment on above: Performed By: #### L [id number] ####[facility] ([facility])[address] [place] [address] BASOPHILS (10*3/UL) IN BLOOD BY CALCULATION 0.04 10*3/uL Normal 0.00-0.20 [facility] Comment on above: Performed By: #### L [id number] ####[facility] ([facility])[address] [place] [address] BASOPHILS/100 LEUKOCYTES IN BLOOD BY AUTOMATED COUNT 0.7 % Normal 0.0-1.0 [facility] Comment on above: Performed By: #### L [id number] ####[facility] ([facility])[address] [place] [address] ELLIPTOCYTES IN BLOOD BY LIGHT MICROSCOPY Slight Normal [facility] Comment on above: Performed By: #### L [id number] ####[facility] ([facility])[address] [place] [address] EOSINOPHILS (10*3/UL) IN BLOOD BY CALCULATION 0.21 10*3/uL Normal 0.00-0.50 [facility] Comment on above: Performed By: #### L [id number] ####[facility] ([facility])[address] [place] [address] EOSINOPHILS/100 LEUKOCYTES IN BLOOD BY AUTOMATED COUNT 3.4 % Normal 0.0-6.0 [facility] Comment on above: Performed By: #### L [id number] ####[facility] ([facility])[address] [place] [address] IMMATURE GRANULOCYTES (10*3/UL) IN BLOOD BY CALCULATION 0.07 10*3/uL Normal 0.00-0.20 [facility] Comment on above: Performed By: #### L [id number] ####[facility] ([facility])[address] [place] [address] IMMATURE GRANULOCYTES/100 LEUKOCYTES IN BLOOD BY AUTOMATED COUNT 1.1 % High 0.0-1.0 [facility] Comment on above: Performed By: #### L [id number] ####[facility] ([facility])[address] [place] [address] LYMPHOCYTES (10*3/UL) IN BLOOD BY CALCULATION 0.96 10*3/uL Low 1.20-4.00 [facility] Comment on above: Performed By: #### L [id number] ####[facility] ([facility])[address] [place] [address] LYMPHOCYTES/100 LEUKOCYTES IN BLOOD BY AUTOMATED COUNT 15.7 % Low 20.0-45.0 [facility] Comment on above: Performed By: #### L [id number] ####[facility] ([facility])[address] [place] [address] MONOCYTES (10*3/UL) IN BLOOD BY CALCUATION 0.64 10*3/uL Normal 0.10-1.00 [facility] Comment on above: Performed By: #### L [id number] ####[facility] ([facility])[address] [place] [address] MONOCYTES/100 LEUKOCYTES IN BLOOD BY AUTOMATED COUNT 10.4 % Normal 5.0-12.0 [facility] Comment on above: Performed By: #### L [id number] ####[facility] ([facility])[address] [place] [address] NEUTROPHILS (10*3/UL) IN BLOOD BY CALCULATION 4.2 10*3/uL Normal 1.6-7.6 [facility] Comment on above: Performed By: #### L [id number] ####[facility] ([facility]ER)[address] [place] [address] NEUTROPHILS/100 LEUKOCYTES IN BLOOD BY AUTOMATED COUNT 68.7 % Normal 40.0-72.0 [facility] Comment on above: Performed By: #### L [id number] ####[facility] ([facility]ER)[address] [place] [address] POIKILOCYTOSIS (PRESENCE) IN BLOOD BY LIGHT MICROSCOPY Moderate Normal [facility] Comment on above: Performed By: #### L [id number] ####[facility] ([facility])[address] [place] [address] POLYCHROMASIA IN BLOOD BY LIGHT MICROSCOPY Slight Normal [facility] Comment on above: Performed By: #### L [id number] ####[facility] ([facility])[address] [place] [address] SCHISTOCYTES (PRESENCE) IN BLOOD BY LIGHT MICROSCOPY Slight Normal [facility] Comment on above: Performed By: #### L [id number] ####[facility] ([facility])[address] [place] [address] PHOSPHORUSon 10-06-2024 Magnesium [Mass/Vol] 1.8 mg/dL Low 2.5-5.0 [facility] Comment on above: Performed By: #### L [id number] ####[facility] ([facility])[address] [place] [address] 30on 10-05-2024 30 Normal [facility] ANTI-XA (HEPARIN LEVEL)on HEPARIN UNFRACTIONATED (U/ML) IN PPP BY CHROMOGENIC METHOD 0.31 IU/mL Normal 0.3-0.7 [facility] Comment on above: Result Comment: [place] roxaban and Apixaban will interfere with the anti Xa assay used to monitor UFH and LMWH. Performed By: #### L [id number] ####[facility] ([facility])[address] [place] [address] CBC WITH AUTO DIFFERENTIALon 10-05-2024 Erythrocyte distribution width (RBC) [Ratio] 23.7 % High 11.5-15.0 [facility] Comment on above: Performed By: #### L [id number] ####[facility] ([facility])[address] [place] [address] ERYTHROCYTE MEAN CORPUSCULAR HEMOGLOBIN CONCENTRATION (G/DL) BY AUTOMATED 31.2 g/dL Low 32.0-35.0 [facility] Comment on above: Performed By: #### L [id number] ####[facility] ([facility]ER)[address] [place] [address] Hematocrit (Bld) [Volume fraction] 33.0 % Low 39.0-55.0 [facility] Comment on above: Performed By: #### L [id number] ####[facility] ([facility]ER)[address] [place] [address] Hemoglobin (Bld) [Mass/Vol] 10.3 g/dL Low 13.0-17.0 [facility] Comment on above: Performed By: #### L [id number] ####[facility] ([facility]ER)[address] [place] [address] IMMATURE PLATELET FRACTION % 2.6 % Normal 0.8-6.3 [facility] Comment on above: Performed By: #### L [id number] ####[facility] ([facility]ER)[address] [place] [address] MCH (RBC) [Entitic mass] 28.2 pg Normal 27.0-33.0 [facility] Comment on above: Performed By: #### L [id number] ####[facility] ([facility]ER)[address] [place] [address] MCV (RBC) [Entitic vol] 90.4 fL Normal 82.0-98.0 [facility] Comment on above: Performed By: #### L [id number] ####[facility] ([facility])[address] [place] [address] NRBC (PER 100 WBCS) BY AUTOMATED COUNT 0.0 % Normal 0 [facility] Comment on above: Performed By: #### L [id number] ####[facility] ([facility])[address] [place] [address] PLATELETS (10*3/UL) IN BLOOD AUTOMATED COUNT 106 10*3/uL Low 150-400 [facility] Comment on above: Performed By: #### L [id number] ####[facility] ([facility])[address] [place] [address] RBC (Bld) [#/Vol] 3.65 10*6/uL Low 4.20-5.70 [facility] Comment on above: Performed By: #### L [id number] ####[facility] ([facility])[address] [place] [address] WBC (Bld) [#/Vol] 5.63 10*3/uL Normal 4.00-10.60 [facility] Comment on above: Performed By: #### L [id number] ####[facility] ([facility])[address] [place] [address] COMPREHENSIVE METABOLIC PANE Aldo 10-05-2024 Albumin [Mass/Vol] 3.5 g/dL Normal 3.5-5.7 [facility] Comment on above: Performed By: #### L [id number] ####[facility] ([facility])[address] [place] [address] ALP [Catalytic activity/Vol] 103 U/L Normal 34-104 [facility] Comment on above: Performed By: #### L [id number] ####[facility] ([facility])[address] [place] [address] ALT [Catalytic activity/Vol] 277 U/L High 7-52 [facility] Comment on above: Performed By: #### L [id number] ####[facility] ([facility])[address] [place] [address] Anion gap [Moles/Vol] 13 mmol/L Normal 7-20 [facility] Comment on above: Performed By: #### L [id number] ####[facility] ([facility])[address] [place] [address] AST [Catalytic activity/Vol] 91 U/L High 13-39 [facility] Comment on above: Performed By: #### L [id number] ####[facility] ([facility])[address] [place] [address] Bilirubin [Mass/Vol] 1.8 mg/dL High 0.3-1.0 [facility] Comment on above: Performed By: #### L [id number] ####[facility] ([facility])[address] [place] [address] Calcium [Mass/Vol] 8.5 mg/dL Low 8.6-10.3 [facility] Comment on above: Performed By: #### L [id number] ####[facility] ([facility])[address] [place] [address] Chloride [Moles/Vol] 99 mmol/L Normal 98-107 [facility] Comment on above: Performed By: #### L [id number] ####[facility] ([facility])[address] [place] [address] CO2 [Moles/Vol] 27 mmol/L Normal 21-31 [facility] Comment on above: Performed By: #### L [id number] ####[facility] ([facility])[address] [place] [address] Creatinine [Mass/Vol] 1.96 mg/dL High 0.70-1.30 [facility] Comment on above: Performed By: #### L [id number] ####[facility] ([facility])[address] [place] [address] GLOMERULAR FILTRATION RATE ML/MIN/1.73 SQ M.PREDICTED 33.5 mL/min/1.73m*2 Low >60.0 [facility] Comment on above: Result Comment: The [facility]???s estimated glomerular filtration rate (eGFR) will no [...] of individuals. Performed By: #### L [id number] ####[facility] ([facility])[address] [place] [address] Glucose [Mass/Vol] 90 mg/dL Normal 70-100 [facility] Comment on above: Performed By: #### L [id number] ####[facility] ([facility])[address] [place] [address] Potassium [Moles/Vol] 3.8 mmol/L Normal 3.5-5.1 [facility] Comment on above: Performed By: #### L [id number] ####[facility] ([facility])[address] [place] [address] Protein [Mass/Vol] 6.0 g/dL Normal 6.0-8.3 [facility] Comment on above: Performed By: #### L [id number] ####[facility] ([facility])[address] [place] [address] Sodium [Moles/Vol] 135 mmol/L Low 136-145 [facility] Comment on above: Performed By: #### L [id number] ####[facility] ([facility])[address] [place] [address] Urea nitrogen [Mass/Vol] 43 mg/dL High 7-25 [facility] Comment on above: Performed By: #### L [id number] ####[facility] ([facility])[address] [place] [address] UREA NITROGEN/CREATININE (MASS RATIO) IN SER/PLAS 21.9 Normal [facility] Comment on above: Performed By: #### L [id number] ####[facility] ([facility])[address] [place] [address] Albumin [Mass/Vol] 3.2 g/dL Low 3.5-5.7 [facility] Comment on above: Performed By: #### L [id number] ####[facility] ([facility])[address] [place] [address] ALP [Catalytic activity/Vol] 93 U/L Normal 34-104 [facility] Comment on above: Performed By: #### L [id number] ####[facility] ([facility])[address] [place] [address] ALT [Catalytic activity/Vol] 279 U/L High 7-52 [facility] Comment on above: Performed By: #### L [id number] ####[facility] ([facility])[address] [place] [address] Anion gap [Moles/Vol] 12 mmol/L Normal 7-20 [facility] Comment on above: Performed By: #### L [id number] ####[facility] ([facility]ER)[address] [place] [address] AST [Catalytic activity/Vol] 93 U/L High 13-39 [facility] Comment on above: Performed By: #### L [id number] ####[facility] ([facility])[address] [place] [address] Bilirubin [Mass/Vol] 1.6 mg/dL High 0.3-1.0 [facility] Comment on above: Performed By: #### L [id number] ####[facility] ([facility])[address] [place] [address] Calcium [Mass/Vol] 8.2 mg/dL Low 8.6-10.3 [facility] Comment on above: Performed By: #### L [id number] ####[facility] ([facility])[address] [place] [address] Chloride [Moles/Vol] 100 mmol/L Normal 98-107 [facility] Comment on above: Performed By: #### L [id number] ####[facility] ([facility])[address] [place] [address] CO2 [Moles/Vol] 28 mmol/L Normal 21-31 [facility] Comment on above: Performed By: #### L [id number] ####[facility] ([facility])[address] [place] [address] Creatinine [Mass/Vol] 2.07 mg/dL High 0.70-1.30 [facility] Comment on above: Performed By: #### L [id number] ####[facility] ([facility])[address] [place] [address] GLOMERULAR FILTRATION RATE ML/MIN/1.73 SQ M.PREDICTED 31.4 mL/min/1.73m*2 Low >60.0 [facility] Comment on above: Result Comment: The [facility]???s estimated glomerular filtration rate (eGFR) will no [...] of individuals. Performed By: #### L [id number] ####[facility] ([facility])[address] [place] [address] Glucose [Mass/Vol] 102 mg/dL High 70-100 [facility] Comment on above: Performed By: #### L [id number] ####[facility] ([facility])[address] [place] [address] Potassium [Moles/Vol] 3.6 mmol/L Normal 3.5-5.1 [facility] Comment on above: Performed By: #### L [id number] ####[facility] ([facility])[address] [place] [address] Protein [Mass/Vol] 5.3 g/dL Low 6.0-8.3 [facility] Comment on above: Performed By: #### L [id number] ####[facility] ([facility])[address] [place] [address] Sodium [Moles/Vol] 136 mmol/L Normal 136-145 [facility] Comment on above: Performed By: #### L [id number] ####[facility] ([facility])[address] [place] [address] Urea nitrogen [Mass/Vol] 45 mg/dL High 7-25 [facility] Comment on above: Performed By: #### L [id number] ####[facility] ([facility])[address] [place] [address] UREA NITROGEN/CREATININE (MASS RATIO) IN SER/PLAS 21.7 Normal [facility] Comment on above: Performed By: #### L [id number] ####[facility] ([facility])[address] [place] [address] MAGNESIUMon 10-05-2024 Magnesium [Mass/Vol] 2.0 mg/dL Normal 1.9-2.7 [facility] Comment on above: Performed By: #### L [id number] ####[facility] ([facility])[address] [place] [address] Magnesium [Mass/Vol] 1.9 mg/dL Normal 1.9-2.7 [facility] Comment on above: Performed By: #### L [id number] ####[facility] ([facility])[address] [facility] [address] MANUAL DIFFERENTIALon 2024 ACANTHOCYTES PRESENCE IN BLOOD BY LIGHT MICROSCOPY Moderate Normal [facility] Comment on above: Performed By: #### L [id number] ####[facility] ([facility])[address] [facility] [address] ANISOCYTOSIS PRESENCE IN BLOOD BY LIGHT MICROSCOPY Moderate Normal [facility] Comment on above: Performed By: #### L [id number] ####[facility] ([facility])[address] [facility] [address] BASOPHILS (10*3/UL) IN BLOOD BY CALCULATION 0.04 10*3/uL Normal 0.00-0.20 [facility] Comment on above: Performed By: #### L [id number] ####[facility] ([facility])[address] [place] [address] BASOPHILS/100 LEUKOCYTES IN BLOOD BY AUTOMATED COUNT 0.7 % Normal 0.0-1.0 [facility] Comment on above: Performed By: #### L [id number] ####[facility] ([facility])[address] [place] [address] ELLIPTOCYTES IN BLOOD BY LIGHT MICROSCOPY Slight Normal [facility] Comment on above: Performed By: #### L [id number] ####[facility] ([facility])[address] [place] [address] EOSINOPHILS (10*3/UL) IN BLOOD BY CALCULATION 0.19 10*3/uL Normal 0.00-0.50 [facility] Comment on above: Performed By: #### L [id number] ####[facility] ([facility])[address] [place] [address] EOSINOPHILS/100 LEUKOCYTES IN BLOOD BY AUTOMATED COUNT 3.4 % Normal 0.0-6.0 [facility] Comment on above: Performed By: #### L [id number] ####[facility] ([facility])[address] [place] [address] IMMATURE GRANULOCYTES (10*3/UL) IN BLOOD BY CALCULATION 0.06 10*3/uL Normal 0.00-0.20 [facility] Comment on above: Performed By: #### L [id number] ####[facility] ([facility])[address] [place] [address] IMMATURE GRANULOCYTES/100 LEUKOCYTES IN BLOOD BY AUTOMATED COUNT 1.1 % High 0.0-1.0 [facility] Comment on above: Performed By: #### L [id number] ####[facility] ([facility])[address] [place] [address] LYMPHOCYTES (10*3/UL) IN BLOOD BY CALCULATION 0.85 10*3/uL Low 1.20-4.00 [facility] Comment on above: Performed By: #### L [id number] ####[facility] ([facility])[address] [place] [address] LYMPHOCYTES/100 LEUKOCYTES IN BLOOD BY AUTOMATED COUNT 15.1 % Low 20.0-45.0 [facility] Comment on above: Performed By: #### L [id number] ####[facility] ([facility])[address] [place] [address] MONOCYTES (10*3/UL) IN BLOOD BY CALCUATION 0.66 10*3/uL Normal 0.10-1.00 [facility] Comment on above: Performed By: #### L [id number] ####[facility] ([facility])[address] [place] [address] MONOCYTES/100 LEUKOCYTES IN BLOOD BY AUTOMATED COUNT 11.7 % Normal 5.0-12.0 [facility] Comment on above: Performed By: #### L [id number] ####[facility] ([facility])[address] [place] [address] NEUTROPHILS (10*3/UL) IN BLOOD BY CALCULATION 3.8 10*3/uL Normal 1.6-7.6 [facility] Comment on above: Performed By: #### L [id number] ####[facility] ([facility])[address] [place] [address] NEUTROPHILS/100 LEUKOCYTES IN BLOOD BY AUTOMATED COUNT 68.0 % Normal 40.0-72.0 [facility] Comment on above: Performed By: #### L [id number] ####[facility] ([facility])[address] [place] [address] POIKILOCYTOSIS (PRESENCE) IN BLOOD BY LIGHT MICROSCOPY Marked Normal [facility] Comment on above: Performed By: #### L [id number] ####[facility] ([facility])[address] [place] [address] POLYCHROMASIA IN BLOOD BY LIGHT MICROSCOPY Slight Normal [facility] Comment on above: Performed By: #### L [id number] ####[facility] ([facility])[address] [place] [address] SCHISTOCYTES (PRESENCE) IN BLOOD BY LIGHT MICROSCOPY Slight Normal [facility] Comment on above: Performed By: #### L [id number] ####[facility] ([facility])[address] [place] [address] NURSNOTEon 10-05-2024 NURSNOTE Normal [facility] PHOSPHORUSon 10-05-2024 Magnesium [Mass/Vol] 1.9 mg/dL Low 2.5-5.0 [facility] Comment on above: Performed By: #### L [id number] ####[facility] ([facility])[address] [place] [address] Magnesium [Mass/Vol] 2.1 mg/dL Low 2.5-5.0 [facility] Comment on above: Performed By: #### L [id number] ####[facility] ([facility])[address] [place] [address] POCT GLUCOSE METER UNSOLICIT ED RESULTSon 10-05-2024 Glucose [Mass/Vol] 117 mg/dL High 70-105 [facility] Comment on above: Order Comment: Waive d Testing in the ED is performed under the ED CLIA certificate #[id number]. Result Comment: [email or web address] Performed By: #### L [id number] ####[facility] ([facility])[address] [place] [address] Glucose [Mass/Vol] 111 mg/dL High 70-105 [facility] Comment on above: Order Comment: Waive d Testing in the ED is performed under the ED CLIA certificate #[id number]. Result Comment: [email or web address] Performed By: #### L [id number] ####[facility] ([facility])[address] [place] [address] 30on 10-04-2024 30 Normal [facility] ANTI-XA (HEPARIN LEVEL)on HEPARIN UNFRACTIONATED (U/ML) IN PPP BY CHROMOGENIC METHOD 0.50 IU/mL Normal 0.3-0.7 [facility] Comment on above: Result Comment: Padmini roxaban and Apixaban will interfere with the anti Xa assay used to monitor UFH and LMWH. Performed By: #### L [id number] ####[facility] ([facility])[address] [place] [address] BASIC METABOLIC PANELon 09-16 Anion gap [Moles/Vol] 14 mmol/L Normal 7-20 [facility] Comment on above: Performed By: #### L [id number] ####[facility] ([facility])[address] [place] [address] Calcium [Mass/Vol] 8.6 mg/dL Normal 8.6-10.3 [facility] Comment on above: Performed By: #### L [id number] ####[facility] ([facility])[address] [place] [address] Chloride [Moles/Vol] 100 mmol/L Normal 98-107 [facility] Comment on above: Performed By: #### L [id number] ####[facility] ([facility])[address] [place] [address] CO2 [Moles/Vol] 28 mmol/L Normal 21-31 [facility] Comment on above: Performed By: #### L [id number] ####[facility] ([facility])[address] [place] [address] Creatinine [Mass/Vol] 2.32 mg/dL High 0.70-1.30 [facility] Comment on above: Performed By: #### L [id number] ####[facility] ([facility])[address] [place] [address] GLOMERULAR FILTRATION RATE ML/MIN/1.73 SQ M.PREDICTED 27.4 mL/min/1.73m*2 Low >60.0 [facility] Comment on above: Result Comment: The [facility]???s estimated glomerular filtration rate (eGFR) will no [...] of individuals. Performed By: #### L [id number] ####[facility] ([facility])[address] [place] [address] Glucose [Mass/Vol] 120 mg/dL High 70-100 [facility] Comment on above: Performed By: #### L [id number] ####[facility] ([facility])[address] [place] [address] Potassium [Moles/Vol] 3.9 mmol/L Normal 3.5-5.1 [facility] Comment on above: Performed By: #### L [id number] ####[facility] ([facility])[address] [place] [address] Sodium [Moles/Vol] 138 mmol/L Normal 136-145 [facility] Comment on above: Performed By: #### L [id number] ####[facility] ([facility])[address] [place] [address] Urea nitrogen [Mass/Vol] 52 mg/dL High 7-25 [facility] Comment on above: Performed By: #### L [id number] ####[facility] ([facility])[address] [place] [address] UREA NITROGEN/CREATININE (MASS RATIO) IN SER/PLAS 22.4 Normal [facility] Comment on above: Performed By: #### L [id number] ####[facility] ([facility])[address] [place] [address] CBC WITH AUTO DIFFERENTIALon 10-04-2024 Erythrocyte distribution width (RBC) [Ratio] 23.1 % High 11.5-15.0 [facility] Comment on above: Performed By: #### L [id number] ####[facility] ([facility])[address] [place] [address] ERYTHROCYTE MEAN CORPUSCULAR HEMOGLOBIN CONCENTRATION (G/DL) BY AUTOMATED 30.9 g/dL Low 32.0-35.0 [facility] Comment on above: Performed By: #### L [id number] ####[facility] ([facility])[address] [place] [address] Hematocrit (Bld) [Volume fraction] 34.3 % Low 39.0-55.0 [facility] Comment on above: Performed By: #### L [id number] ####[facility] ([facility])[address] [place] [address] Hemoglobin (Bld) [Mass/Vol] 10.6 g/dL Low 13.0-17.0 [facility] Comment on above: Performed By: #### L [id number] ####[facility] ([facility])[address] [place], [place] [address] IMMATURE PLATELET FRACTION % 3.2 % Normal 0.8-6.3 [facility] Comment on above: Performed By: #### L [id number] ####[facility] ([facility])[address] [place] [address] MCH (RBC) [Entitic mass] 27.5 pg Normal 27.0-33.0 [facility] Comment on above: Performed By: #### L [id number] ####[facility] ([facility])[address] [place], [place] [address] MCV (RBC) [Entitic vol] 89.1 fL Normal 82.0-98.0 [facility] Comment on above: Performed By: #### L [id number] ####[facility] ([facility])[address] [place] [address] NRBC (PER 100 WBCS) BY AUTOMATED COUNT 0.3 % High 0 [facility] Comment on above: Performed By: #### L [id number] ####[facility] ([facility])[address] [place] [address] PLATELETS (10*3/UL) IN BLOOD AUTOMATED COUNT 119 10*3/uL Low 150-400 [facility] Comment on above: Performed By: #### L [id number] ####[facility] ([facility])[address] [place], [place] [address] RBC (Bld) [#/Vol] 3.85 10*6/uL Low 4.20-5.70 [facility] Comment on above: Performed By: #### L [id number] ####[facility] ([facility])[address] [place], [place] [address] WBC (Bld) [#/Vol] 6.34 10*3/uL Normal 4.00-10.60 [facility] Comment on above: Performed By: #### L [id number] ####[facility])[address] [place] [address] COMPREHENSIVE METABOLIC PANE Aldo 10-04-2024 Albumin [Mass/Vol] 3.5 g/dL Normal 3.5-5.7 [facility] Comment on above: Performed By: #### L [id number] ####[facility] ([facility])[address] [place] [address] ALP [Catalytic activity/Vol] 108 U/L High 34-104 [facility] Comment on above: Performed By: #### L [id number] ####[facility] ([facility])[address] [place] [address] ALT [Catalytic activity/Vol] 369 U/L High 7-52 [facility] Comment on above: Performed By: #### L [id number] ####[facility] ([facility])[address] [place] [address] Anion gap [Moles/Vol] 16 mmol/L Normal 7-20 [facility] Comment on above: Performed By: #### L [id number] ####[facility] ([facility])[address] [place] [address] AST [Catalytic activity/Vol] 138 U/L High 13-39 [facility] Comment on above: Performed By: #### L [id number] ####[facility] ([facility])[address] [place] [address] Bilirubin [Mass/Vol] 1.9 mg/dL High 0.3-1.0 [facility] Comment on above: Performed By: #### L [id number] ####[facility] ([facility])[address] [place] [address] Calcium [Mass/Vol] 8.5 mg/dL Low 8.6-10.3 [facility] Comment on above: Performed By: #### L [id number] ####[facility] ([facility])[address] [place] [address] Chloride [Moles/Vol] 100 mmol/L Normal 98-107 [facility] Comment on above: Performed By: #### L [id number] ####[facility] ([facility])[address] [place] [address] CO2 [Moles/Vol] 26 mmol/L Normal 21-31 [facility] Comment on above: Performed By: #### L [id number] ####[facility] ([facility])[address] [place] [address] Creatinine [Mass/Vol] 2.13 mg/dL High 0.70-1.30 [facility] Comment on above: Performed By: #### L [id number] ####[facility] ([facility])[address] [place] [address] GLOMERULAR FILTRATION RATE ML/MIN/1.73 SQ M.PREDICTED 30.3 mL/min/1.73m*2 Low >60.0 [facility] Comment on above: Result Comment: The [facility]???s estimated glomerular filtration rate (eGFR) will no [...] of individuals. Performed By: #### L [id number] ####[facility] ([facility])[address] [place] [address] Glucose [Mass/Vol] 101 mg/dL High 70-100 [facility] Comment on above: Performed By: #### L [id number] ####[facility] ([facility])[address] [place] [address] Potassium [Moles/Vol] 3.8 mmol/L Normal 3.5-5.1 [facility] Comment on above: Performed By: #### L [id number] ####[facility] ([facility])[address] [place] [address] Protein [Mass/Vol] 6.1 g/dL Normal 6.0-8.3 [facility] Comment on above: Performed By: #### L [id number] ####[facility] ([facility])[address] [place] [address] Sodium [Moles/Vol] 138 mmol/L Normal 136-145 [facility] Comment on above: Performed By: #### L [id number] ####[facility] ([facility])[address] [place] [address] Urea nitrogen [Mass/Vol] 48 mg/dL High 7-25 [facility] Comment on above: Performed By: #### L [id number] ####[facility] ([facility])[address] [place] [address] UREA NITROGEN/CREATININE (MASS RATIO) IN SER/PLAS 22.5 Normal [facility] Comment on above: Performed By: #### L [id number] ####[facility] ([facility])[address] [place] [address] Albumin [Mass/Vol] 3.2 g/dL Low 3.5-5.7 [facility] Comment on above: Performed By: #### L [id number] ####[facility] ([facility])[address] [place] [address] ALP [Catalytic activity/Vol] 96 U/L Normal 34-104 [facility] Comment on above: Performed By: #### L [id number] ####[facility] ([facility])[address] [place] [address] ALT [Catalytic activity/Vol] 388 U/L High 7-52 [facility] Comment on above: Performed By: #### L [id number] ####[facility] ([facility])[address] [place] [address] Anion gap [Moles/Vol] 15 mmol/L Normal 7-20 [facility] Comment on above: Performed By: #### L [id number] ####[facility] ([facility])[address] [place] [address] AST [Catalytic activity/Vol] 163 U/L High 13-39 [facility] Comment on above: Performed By: #### L [id number] ####[facility] ([facility])[address] [place] [address] Bilirubin [Mass/Vol] 1.9 mg/dL High 0.3-1.0 [facility] Comment on above: Performed By: #### L [id number] ####[facility] ([facility])[address] [place] [address] Calcium [Mass/Vol] 8.3 mg/dL Low 8.6-10.3 [facility] Comment on above: Performed By: #### L [id number] ####[facility] ([facility])[address] [place] [address] Chloride [Moles/Vol] 100 mmol/L Normal 98-107 [facility] Comment on above: Performed By: #### L [id number] ####[facility] ([facility])[address] [place] [address] CO2 [Moles/Vol] 29 mmol/L Normal 21-31 [facility] Comment on above: Performed By: #### L [id number] ####[facility] ([facility])[address] [place] [address] Creatinine [Mass/Vol] 2.51 mg/dL High 0.70-1.30 [facility] Comment on above: Performed By: #### L [id number] ####[facility] ([facility])[address] [place] [address] GLOMERULAR FILTRATION RATE ML/MIN/1.73 SQ M.PREDICTED 24.9 mL/min/1.73m*2 Low >60.0 [facility] Comment on above: Result Comment: The [facility]???s estimated glomerular filtration rate (eGFR) will no [...] of individuals. Performed By: #### L [id number] ####[facility] ([facility])[address] [place] [address] Glucose [Mass/Vol] 107 mg/dL High 70-100 [facility] Comment on above: Performed By: #### L [id number] ####[facility] ([facility])[address] [place] [address] Potassium [Moles/Vol] 3.2 mmol/L Low 3.5-5.1 [facility] Comment on above: Performed By: #### L [id number] ####[facility] ([facility])[address] [place] [address] Protein [Mass/Vol] 5.4 g/dL Low 6.0-8.3 [facility] Comment on above: Performed By: #### L [id number] ####[facility] ([facility])[address] [place] [address] Sodium [Moles/Vol] 141 mmol/L Normal 136-145 [facility] Comment on above: Performed By: #### L [id number] ####[facility] ([facility])[address] [place] [address] Urea nitrogen [Mass/Vol] 52 mg/dL High 7-25 [facility] Comment on above: Performed By: #### L [id number] ####[facility] ([facility])[address] [place] [address] UREA NITROGEN/CREATININE (MASS RATIO) IN SER/PLAS 20.7 Normal [facility] Comment on above: Performed By: #### L [id number] ####[facility] ([facility])[address] [place] [address] HEMOGLOBIN A1Con 10-04-2024 Glucose [Mass/Vol] 114 mg/dL Normal [facility] Comment on above: Performed By: #### L [id number] ####[facility] ([facility])[address] [place] [address] HbA1c (Bld) [Mass fraction] 5.6 % Normal 4.0-6.0 [facility] Comment on above: Performed By: #### L [id number] ####[facility] ([facility])[address] [place] [address] MAGNESIUMon 10-04-2024 Magnesium [Mass/Vol] 2.3 mg/dL Low 2.5-5.0 [facility] Comment on above: Performed By: #### L [id number] ####[facility] ([facility])[address] [place] [address] Performed By: #### L [id number] ####[facility] ([facility])[address] [place] [address] Magnesium [Mass/Vol] 1.7 mg/dL Low 1.9-2.7 [facility] Comment on above: Performed By: #### L [id number] ####[facility] ([facility])[address] [place] [address] MANUAL DIFFERENTIALon 2024 ACANTHOCYTES PRESENCE IN BLOOD BY LIGHT MICROSCOPY Moderate Normal [facility] Comment on above: Performed By: #### L [id number] ####[facility] ([facility])[address] [place] [address] ANISOCYTOSIS PRESENCE IN BLOOD BY LIGHT MICROSCOPY Moderate Normal [facility] Comment on above: Performed By: #### L [id number] ####[facility] ([facility])[address] [place] [address] BASOPHILS (10*3/UL) IN BLOOD BY CALCULATION 0.03 10*3/uL Normal 0.00-0.20 [facility] Comment on above: Performed By: #### L [id number] ####[facility] ([facility])[address] [place] [address] BASOPHILS/100 LEUKOCYTES IN BLOOD BY AUTOMATED COUNT 0.5 % Normal 0.0-1.0 [facility] Comment on above: Performed By: #### L [id number] ####[facility] ([facility])[address] [place] [address] HAMZAH CELLS PRESENCE IN BLOOD BY LIGHT MICROSCOPY Slight Normal [facility] Comment on above: Performed By: #### L [id number] ####[facility] ([facility])[address] [place] [address] EOSINOPHILS (10*3/UL) IN BLOOD BY CALCULATION 0.23 10*3/uL Normal 0.00-0.50 [facility] Comment on above: Performed By: #### L [id number] ####[facility] ([facility])[address] [place] [address] EOSINOPHILS/100 LEUKOCYTES IN BLOOD BY AUTOMATED COUNT 3.6 % Normal 0.0-6.0 [facility] Comment on above: Performed By: #### L [id number] ####[facility] ([facility])[address] [place] [address] IMMATURE GRANULOCYTES (10*3/UL) IN BLOOD BY CALCULATION 0.05 10*3/uL Normal 0.00-0.20 [facility] Comment on above: Performed By: #### L [id number] ####[facility] ([facility])[address] [place] [address] IMMATURE GRANULOCYTES/100 LEUKOCYTES IN BLOOD BY AUTOMATED COUNT 0.8 % Normal 0.0-1.0 [facility] Comment on above: Performed By: #### L [id number] ####[facility] ([facility])[address] [place] [address] LYMPHOCYTES (10*3/UL) IN BLOOD BY CALCULATION 0.90 10*3/uL Low 1.20-4.00 [facility] Comment on above: Performed By: #### L [id number] ####[facility] ([facility])[address] [place] [address] LYMPHOCYTES/100 LEUKOCYTES IN BLOOD BY AUTOMATED COUNT 14.2 % Low 20.0-45.0 [facility] Comment on above: Performed By: #### L [id number] ####[facility] ([facility])[address] [place] [address] MONOCYTES (10*3/UL) IN BLOOD BY CALCUATION 0.78 10*3/uL Normal 0.10-1.00 [facility] Comment on above: Performed By: #### L [id number] ####[facility] ([facility])[address] [place] [address] MONOCYTES/100 LEUKOCYTES IN BLOOD BY AUTOMATED COUNT 12.3 % High 5.0-12.0 [facility] Comment on above: Performed By: #### L [id number] ####[facility] ([facility])[address] [place] [address] NEUTROPHILS (10*3/UL) IN BLOOD BY CALCULATION 4.3 10*3/uL Normal 1.6-7.6 [facility] Comment on above: Performed By: #### L [id number] ####[facility] ([facility])[address] [place] [address] NEUTROPHILS/100 LEUKOCYTES IN BLOOD BY AUTOMATED COUNT 68.6 % Normal 40.0-72.0 [facility] Comment on above: Performed By: #### L [id number] ####[facility] ([facility])[address] [place] [address] POIKILOCYTOSIS (PRESENCE) IN BLOOD BY LIGHT MICROSCOPY Marked Normal [facility] Comment on above: Performed By: #### L [id number] ####[facility] ([facility])[address] [place] [address] POLYCHROMASIA IN BLOOD BY LIGHT MICROSCOPY Slight Normal [facility] Comment on above: Performed By: #### L [id number] ####[facility] ([facility])[address] [place] [address] SCHISTOCYTES (PRESENCE) IN BLOOD BY LIGHT MICROSCOPY Moderate Normal [facility] Comment on above: Performed By: #### L [id number] ####[facility] ([facility])[address] [place] [address] NURSNOTEon 10-04-2024 NURSNOTE Normal [facility] NURSNOTE Normal [facility] PHOSPHORUSon 10-04-2024 Magnesium [Mass/Vol] 2.8 mg/dL Normal 2.5-5.0 [facility] Comment on above: Performed By: #### L [id number] ####[facility] [facility])[address] [place] [address] POCT GLUCOSE METER UNSOLICIT ED RESULTSon 10-04-2024 Glucose [Mass/Vol] 114 mg/dL High 70-105 [facility] Comment on above: Order Comment: Waive d Testing in the ED is performed under the ED CLIA certificate #[id number]. Result Comment: [email or web address] Performed By: #### L [id number] ####[facility] ([facility])[address] [place] [address] Glucose [Mass/Vol] 119 mg/dL High 70-105 [facility] Comment on above: Order Comment: Waive d Testing in the ED is performed under the ED CLIA certificate #[id number]. Result Comment: [email or web address] Performed By: #### L [id number] ####[facility] ([facility])[address] [place] [address] 30on 10-03-2024 30 Normal [facility] AMMONIAon 10-03-2024 AMMONIA (UMOL/L) IN PLASMA 48 umol/L Normal 18-72 [facility] Comment on above: Performed By: #### L [id number] ####[facility] ([facility])[address] [place] [address] ANTI-XA (HEPARIN LEVEL)on HEPARIN UNFRACTIONATED (U/ML) IN PPP BY CHROMOGENIC METHOD 0.30 IU/mL Normal 0.3-0.7 [facility] Comment on above: Order Comment: Check anti-Xa level every 6 hours while on heparin infusion, or per protocol. Result Comment: [place] roxaban and Apixaban will interfere with the anti Xa assay used to monitor UFH and LMWH. Performed By: #### L [id number] ####[facility] ([facility])[address] [place] [address] HEPARIN UNFRACTIONATED (U/ML) IN PPP BY CHROMOGENIC METHOD 0.40 IU/mL Normal 0.3-0.7 [facility] Comment on above: Result Comment: Padmini roxaban and Apixaban will interfere with the anti Xa assay used to monitor UFH and LMWH. Performed By: #### L [id number] ####[facility] ([facility])[address] [place] [address] APTTon 10-03-2024 ACTIVATED PARTIAL THROMBOPLASTIN TIME IN PPP BY COAGULATION ASSAY 38.7 Seconds High 25.0-35.0 [facility] Comment on above: Result Comment: Clin ical significance of the APTT is questionable in the presence of heparin. Performed By: #### L [id number] ####[facility] ([facility])[address] [facility] [place] [address] CBC WITH AUTO DIFFERENTIALon 10-03-2024 Erythrocyte distribution width (RBC) [Ratio] 22.9 % High 11.5-15.0 [facility] Comment on above: Performed By: #### L [id number] ####[facility] ([facility])[address] [facility] [address] ERYTHROCYTE MEAN CORPUSCULAR HEMOGLOBIN CONCENTRATION (G/DL) BY AUTOMATED 31.2 g/dL Low 32.0-35.0 [facility] Comment on above: Performed By: #### L [id number] ####[facility] ([facility])[address] [facility] [address] Hematocrit (Bld) [Volume fraction] 33.0 % Low 39.0-55.0 [facility] Comment on above: Performed By: #### L [id number] ####[facility] ([facility])[address] [facility] [address] Hemoglobin (Bld) [Mass/Vol] 10.3 g/dL Low 13.0-17.0 [facility] Comment on above: Performed By: #### L [id number] ####[facility] ([facility])[address] [facility] [place] [address] MCH (RBC) [Entitic mass] 27.6 pg Normal 27.0-33.0 [facility] Comment on above: Performed By: #### L [id number] ####[facility] ([facility])[address] [place] [address] MCV (RBC) [Entitic vol] 88.5 fL Normal 82.0-98.0 [facility] Comment on above: Performed By: #### L [id number] ####[facility] ([facility])[address] [place] [address] NRBC (PER 100 WBCS) BY AUTOMATED COUNT 0.0 % Normal 0 [facility] Comment on above: Performed By: #### L [id number] ####[facility] ([facility])[address] [place] [address] PLATELETS (10*3/UL) IN BLOOD AUTOMATED COUNT 141 10*3/uL Low 150-400 [facility] Comment on above: Performed By: #### L [id number] ####[facility] ([facility])[address] [place] [address] RBC (Bld) [#/Vol] 3.73 10*6/uL Low 4.20-5.70 [facility] Comment on above: Performed By: #### L [id number] ####[facility] ([facility])[address] [place] [address] WBC (Bld) [#/Vol] 5.89 10*3/uL Normal 4.00-10.60 [facility] Comment on above: Performed By: #### L [id number] ####[facility] ([facility])[address] [place] [address] COMPREHENSIVE METABOLIC PANE Aldo 10-03-2024 Albumin [Mass/Vol] 3.3 g/dL Low 3.5-5.7 [facility] Comment on above: Performed By: #### L [id number] ####[facility] ([facility])[address] [place] [address] ALP [Catalytic activity/Vol] 93 U/L Normal 34-104 [facility] Comment on above: Performed By: #### L [id number] ####[facility] ([facility])[address] [place] [address] ALT [Catalytic activity/Vol] 529 U/L High 7-52 [facility] Comment on above: Performed By: #### L [id number] ####[facility] ([facility])[address] [place] [address] Anion gap [Moles/Vol] 18 mmol/L Normal 7-20 [facility] Comment on above: Performed By: #### L [id number] ####[facility] ([facility])[address] [place] [address] AST [Catalytic activity/Vol] 270 U/L High 13-39 [facility] Comment on above: Performed By: #### L [id number] ####[facility] ([facility])[address] [place] [address] Bilirubin [Mass/Vol] 1.7 mg/dL High 0.3-1.0 [facility] Comment on above: Performed By: #### L [id number] ####[facility] ([facility])[address] [place] [address] Calcium [Mass/Vol] 8.5 mg/dL Low 8.6-10.3 [facility] Comment on above: Performed By: #### L [id number] ####[facility] ([facility])[address] [place] [address] Chloride [Moles/Vol] 100 mmol/L Normal 98-107 [facility] Comment on above: Performed By: #### L [id number] ####[facility] ([facility])[address] [place] [address] CO2 [Moles/Vol] 26 mmol/L Normal 21-31 [facility] Comment on above: Performed By: #### L [id number] ####[facility] ([facility])[address] [place] [address] Creatinine [Mass/Vol] 3.08 mg/dL High 0.70-1.30 [facility] Comment on above: Performed By: #### L [id number] ####[facility] ([facility])[address] [place] [address] GLOMERULAR FILTRATION RATE ML/MIN/1.73 SQ M.PREDICTED 19.5 mL/min/1.73m*2 Low >60.0 [facility] Comment on above: Result Comment: The [facility]???s estimated glomerular filtration rate (eGFR) will no [...] of individuals. Performed By: #### L [id number] ####[facility] ([facility])[address] [place] [address] Glucose [Mass/Vol] 126 mg/dL High 70-100 [facility] Comment on above: Performed By: #### L [id number] ####[facility] ([facility])[address] [place] [address] Potassium [Moles/Vol] 2.8 mmol/L Invalid Interpretation Code 3.5-5.1 [facility] Comment on above: Performed By: #### L [id number] ####[facility] ([facility])[address] [place] [address] Protein [Mass/Vol] 5.3 g/dL Low 6.0-8.3 [facility] Comment on above: Performed By: #### L [id number] ####[facility] ([facility])[address] [place] [address] Sodium [Moles/Vol] 141 mmol/L Normal 136-145 [facility] Comment on above: Performed By: #### L [id number] ####[facility] ([facility])[address] [place] [address] Urea nitrogen [Mass/Vol] 60 mg/dL High 7-25 [facility] Comment on above: Performed By: #### L [id number] ####[facility] ([facility])[address] [place] [address] UREA NITROGEN/CREATININE (MASS RATIO) IN SER/PLAS 19.5 Normal [facility] Comment on above: Performed By: #### L [id number] ####[facility] ([facility])[address] [place] [address] MAGNESIUMon 10-03-2024 Magnesium [Mass/Vol] 1.9 mg/dL Normal 1.9-2.7 [facility] Comment on above: Performed By: #### L [id number] ####[facility] ([facility])[address] [place] [address] MANUAL DIFFERENTIALon 2024 ACANTHOCYTES PRESENCE IN BLOOD BY LIGHT MICROSCOPY Moderate Normal [facility] Comment on above: Performed By: #### L [id number] ####[facility] ([facility])[address] [facility] [address] ANISOCYTOSIS PRESENCE IN BLOOD BY LIGHT MICROSCOPY Moderate Normal [facility] Comment on above: Performed By: #### L [id number] ####[facility] ([facility])[address] [facility] [address] BASOPHILS (10*3/UL) IN BLOOD BY CALCULATION 0.03 10*3/uL Normal 0.00-0.20 [facility] Comment on above: Performed By: #### L [id number] ####[facility] ([facility])[address] [place] [address] BASOPHILS/100 LEUKOCYTES IN BLOOD BY AUTOMATED COUNT 0.5 % Normal 0.0-1.0 [facility] Comment on above: Performed By: #### L [id number] ####[facility] ([facility])[address] [facility] [place] [address] HAMZAH CELLS PRESENCE IN BLOOD BY LIGHT MICROSCOPY Slight Normal [facility] Comment on above: Performed By: #### L [id number] ####[facility] ([facility])[address] [place] [address] EOSINOPHILS (10*3/UL) IN BLOOD BY CALCULATION 0.12 10*3/uL Normal 0.00-0.50 [facility] Comment on above: Performed By: #### L [id number] ####[facility] ([facility])[address] [place] [address] EOSINOPHILS/100 LEUKOCYTES IN BLOOD BY AUTOMATED COUNT 2.0 % Normal 0.0-6.0 [facility] Comment on above: Performed By: #### L [id number] ####[facility] ([facility])[address] [place] [address] IMMATURE GRANULOCYTES (10*3/UL) IN BLOOD BY CALCULATION 0.04 10*3/uL Normal 0.00-0.20 [facility] Comment on above: Performed By: #### L [id number] ####[facility] ([facility])[address] [place] [address] IMMATURE GRANULOCYTES/100 LEUKOCYTES IN BLOOD BY AUTOMATED COUNT 0.7 % Normal 0.0-1.0 [facility] Comment on above: Performed By: #### L [id number] ####[facility] ([facility])[address] [place] [address] LYMPHOCYTES (10*3/UL) IN BLOOD BY CALCULATION 0.80 10*3/uL Low 1.20-4.00 [facility] Comment on above: Performed By: #### L [id number] ####[facility] ([facility])[address] [place] [address] LYMPHOCYTES/100 LEUKOCYTES IN BLOOD BY AUTOMATED COUNT 13.6 % Low 20.0-45.0 [facility] Comment on above: Performed By: #### L [id number] ####[facility] ([facility])[address] [place] [address] MONOCYTES (10*3/UL) IN BLOOD BY CALCUATION 0.68 10*3/uL Normal 0.10-1.00 [facility] Comment on above: Performed By: #### L [id number] ####[facility] ([facility])[address] [place] [address] MONOCYTES/100 LEUKOCYTES IN BLOOD BY AUTOMATED COUNT 11.5 % Normal 5.0-12.0 [facility] Comment on above: Performed By: #### L [id number] ####[facility] ([facility])[address] [place] [address] NEUTROPHILS (10*3/UL) IN BLOOD BY CALCULATION 4.2 10*3/uL Normal 1.6-7.6 [facility] Comment on above: Performed By: #### L [id number] ####[facility] ([facility])[address] [place] [address] NEUTROPHILS/100 LEUKOCYTES IN BLOOD BY AUTOMATED COUNT 71.7 % Normal 40.0-72.0 [facility] Comment on above: Performed By: #### L [id number] ####[facility] ([facility])[address] [place] [address] POIKILOCYTOSIS (PRESENCE) IN BLOOD BY LIGHT MICROSCOPY Marked Normal [facility] Comment on above: Performed By: #### L [id number] ####[facility] ([facility])[address] [place] [address] POLYCHROMASIA IN BLOOD BY LIGHT MICROSCOPY Slight Normal [facility] Comment on above: Performed By: #### L [id number] ####[facility] ([facility])[address] [place] [address] SCHISTOCYTES (PRESENCE) IN BLOOD BY LIGHT MICROSCOPY Moderate Normal [facility] Comment on above: Performed By: #### L [id number] ####[facility] ([facility])[address] [place] [address] PHOSPHORUSon 10-03-2024 Magnesium [Mass/Vol] 2.4 mg/dL Low 2.5-5.0 [facility] Comment on above: Performed By: #### L [id number] ####[facility] ([facility])[address] [place] [address] POCT GLUCOSE METER UNSOLICIT ED RESULTSon 10-03-2024 Glucose [Mass/Vol] 163 mg/dL High 70-105 [facility] Comment on above: Order Comment: Waive d Testing in the ED is performed under the ED CLIA certificate #[id number]. Result Comment: [email or web address] Performed By: #### L [id number] ####[facility] ([facility])[address] [facility] [place] [address] Glucose [Mass/Vol] 111 mg/dL High 70-105 [facility] Comment on above: Order Comment: Waive d Testing in the ED is performed under the ED CLIA certificate #[id number]. Result Comment: [email or web address] Performed By: #### L [id number] ####[facility] ([facility])[address] [facility] [place] [address] Glucose [Mass/Vol] 100 mg/dL Normal 70-105 [facility] Comment on above: Order Comment: Waive d Testing in the ED is performed under the ED CLIA certificate #[id number]. Result Comment: [email or web address] Performed By: #### L [id number] ####[facility] ([facility])[address] [facility] [place] [address] Glucose [Mass/Vol] 114 mg/dL High 70-105 [facility] Comment on above: Order Comment: Waive d Testing in the ED is performed under the ED CLIA certificate #[id number]. Result Comment: [email or web address] Performed By: #### L [id number] ####[facility] ([facility])[address] [facility] [place] [address] PROTIME-INRon 10-03-2024 INR IN PPP BY COAGULATION ASSAY 2.14 High 0.90-1.10 [facility] Comment on above: Result Comment: ACCC P [...] CHEST 1995;[id number]. Performed By: #### L [id number] ####[facility] [employer])[address] [place] [address] PROTHROMBIN TIME (PT) IN PPP BY COAGULATION ASSAY 23.5 Seconds High 12.3-14.8 [facility] Comment on above: Performed By: #### L [id number] ####[facility] [employer])[address] [place] [address] 30on 10-02-2024 30 Normal [facility] ANTI-XA (HEPARIN LEVEL)on HEPARIN UNFRACTIONATED (U/ML) IN PPP BY CHROMOGENIC METHOD >1.00 Critically high 0.3-0.7 [facility] Comment on above: Result Comment: [place] roxaban and Apixaban will interfere with the anti Xa assay used to monitor UFH and LMWH. Performed By: #### L [id number] ####[facility] [employer])[address] [place] [address] APTTon 10-02-2024 ACTIVATED PARTIAL THROMBOPLASTIN TIME IN PPP BY COAGULATION ASSAY 86.5 Seconds High 25.0-35.0 [facility] Comment on above: Result Comment: Clin ical significance of the APTT is questionable in the presence of heparin. Performed By: #### L [id number] ####[facility] [employer])[address] [place] [address] BASIC METABOLIC PANELon 09-16 Anion gap [Moles/Vol] 21 mmol/L High 7-20 [facility] Comment on above: Performed By: #### L [id number] ####[facility] ([facility])[address] [place] [address] Calcium [Mass/Vol] 9.4 mg/dL Normal 8.6-10.3 [facility] Comment on above: Performed By: #### L [id number] ####[facility] ([facility])[address] [place] [address] Chloride [Moles/Vol] 100 mmol/L Normal 98-107 [facility] Comment on above: Performed By: #### L [id number] ####[facility] ([facility])[address] [place] [address] CO2 [Moles/Vol] 27 mmol/L Normal 21-31 [facility] Comment on above: Performed By: #### L [id number] ####[facility] ([facility])[address] [place] [address] Creatinine [Mass/Vol] 3.62 mg/dL High 0.70-1.30 [facility] Comment on above: Performed By: #### L [id number] ####[facility] ([facility])[address] [place] [address] GLOMERULAR FILTRATION RATE ML/MIN/1.73 SQ M.PREDICTED 16.0 mL/min/1.73m*2 Low >60.0 [facility] Comment on above: Result Comment: The [facility]???s estimated glomerular filtration rate (eGFR) will no [...] of individuals. Performed By: #### L [id number] ####[facility] ([facility])[address] [place] [address] Glucose [Mass/Vol] 110 mg/dL High 70-100 [facility] Comment on above: Performed By: #### L [id number] ####[facility] ([facility])[address] [place] [address] Potassium [Moles/Vol] 3.4 mmol/L Low 3.5-5.1 [facility] Comment on above: Performed By: #### L [id number] ####[facility] ([facility])[address] [place] [address] Sodium [Moles/Vol] 145 mmol/L Normal 136-145 [facility] Comment on above: Performed By: #### L [id number] ####[facility] ([facility])[address] [place] [address] Urea nitrogen [Mass/Vol] 71 mg/dL High 7-25 [facility] Comment on above: Performed By: #### L [id number] ####[facility] ([facility])[address] [place] [address] UREA NITROGEN/CREATININE (MASS RATIO) IN SER/PLAS 19.6 Normal [facility] Comment on above: Performed By: #### L [id number] ####[facility] ([facility])[address] [place] [address] Anion gap [Moles/Vol] 22 mmol/L High 7-20 [facility] Comment on above: Performed By: #### L [id number] ####[facility] ([facility])[address] [place] [address] Calcium [Mass/Vol] 9.2 mg/dL Normal 8.6-10.3 [facility] Comment on above: Performed By: #### L [id number] ####[facility] ([facility])[address] [place] [address] Chloride [Moles/Vol] 102 mmol/L Normal 98-107 [facility] Comment on above: Performed By: #### L [id number] ####[facility] ([facility])[address] [place] [address] CO2 [Moles/Vol] 23 mmol/L Normal 21-31 [facility] Comment on above: Performed By: #### L [id number] ####[facility] ([facility])[address] [place] [address] Creatinine [Mass/Vol] 3.65 mg/dL High 0.70-1.30 [facility] Comment on above: Performed By: #### L [id number] ####[facility] ([facility])[address] [place] [address] GLOMERULAR FILTRATION RATE ML/MIN/1.73 SQ M.PREDICTED 15.9 mL/min/1.73m*2 Low >60.0 [facility] Comment on above: Result Comment: The [facility]???s estimated glomerular filtration rate (eGFR) will no [...] of individuals. Performed By: #### L [id number] ####[facility] ([facility])[address] [place] [address] Glucose [Mass/Vol] 119 mg/dL High 70-100 [facility] Comment on above: Performed By: #### L [id number] ####[facility] ([facility])[address] [place] [address] Potassium [Moles/Vol] 4.4 mmol/L Normal 3.5-5.1 [facility] Comment on above: Performed By: #### L [id number] ####[facility] ([facility])[address] [place] [address] Sodium [Moles/Vol] 143 mmol/L Normal 136-145 [facility] Comment on above: Performed By: #### L [id number] ####[facility] ([facility])[address] [place] [address] Urea nitrogen [Mass/Vol] 70 mg/dL High 7-25 [facility] Comment on above: Performed By: #### L [id number] ####[facility] ([facility]ER)[address] [place] [address] UREA NITROGEN/CREATININE (MASS RATIO) IN SER/PLAS 19.2 Normal [facility] Comment on above: Performed By: #### L [id number] ####[facility] ([facility])[address] [place] [address] Anion gap [Moles/Vol] 24 mmol/L High 7-20 [facility] Comment on above: Performed By: #### L [id number] ####[facility] ([facility]ER)[address] [place] [address] Calcium [Mass/Vol] 9.0 mg/dL Normal 8.6-10.3 [facility] Comment on above: Performed By: #### L [id number] ####[facility] ([facility])[address] [place] [address] Chloride [Moles/Vol] 100 mmol/L Normal 98-107 [facility] Comment on above: Performed By: #### L [id number] ####[facility] ([facility]ER)[address] [place] [address] CO2 [Moles/Vol] 24 mmol/L Normal 21-31 [facility] Comment on above: Performed By: #### L [id number] ####[facility] ([facility])[address] [place] [address] Creatinine [Mass/Vol] 3.86 mg/dL High 0.70-1.30 [facility] Comment on above: Performed By: #### L [id number] ####[facility] ([facility])[address] [place] [address] GLOMERULAR FILTRATION RATE ML/MIN/1.73 SQ M.PREDICTED 14.9 mL/min/1.73m*2 Low >60.0 [facility] Comment on above: Result Comment: The [facility]???s estimated glomerular filtration rate (eGFR) will no [...] of individuals. Performed By: #### L [id number] ####[facility] ([facility]ER)[address] [place] [address] Glucose [Mass/Vol] 115 mg/dL High 70-100 [facility] Comment on above: Performed By: #### L [id number] ####[facility] ([facility])[address] [place] [address] Potassium [Moles/Vol] 3.2 mmol/L Low 3.5-5.1 [facility] Comment on above: Performed By: #### L [id number] ####[facility] ([facility])[address] [place] [address] Sodium [Moles/Vol] 145 mmol/L Normal 136-145 [facility] Comment on above: Performed By: #### L [id number] ####[facility] ([facility]AKER)[address] [place] [address] Urea nitrogen [Mass/Vol] 72 mg/dL High 7-25 [facility] Comment on above: Performed By: #### L [id number] ####[facility] ([facility]ER)[address] [place] [address] UREA NITROGEN/CREATININE (MASS RATIO) IN SER/PLAS 18.7 Normal [facility] Comment on above: Performed By: #### L [id number] ####[facility] (BEAKER)[address] [place] [address] CBC WITH AUTO DIFFERENTIALon 10-02-2024 Erythrocyte distribution width (RBC) [Ratio] 23.3 % High 11.5-15.0 [facility] Comment on above: Performed By: #### L [id number] ####[facility] ([facility])[address] [place] [address] ERYTHROCYTE MEAN CORPUSCULAR HEMOGLOBIN CONCENTRATION (G/DL) BY AUTOMATED 30.7 g/dL Low 32.0-35.0 [facility] Comment on above: Performed By: #### L [id number] ####[facility] ([facility])[address] [place] [address] Hematocrit (Bld) [Volume fraction] 37.5 % Low 39.0-55.0 [facility] Comment on above: Performed By: #### L [id number] ####[facility] ([facility])[address] [place] [address] Hemoglobin (Bld) [Mass/Vol] 11.5 g/dL Low 13.0-17.0 [facility] Comment on above: Performed By: #### L [id number] ####[facility] ([facility])[address] [place] [address] MCH (RBC) [Entitic mass] 27.3 pg Normal 27.0-33.0 [facility] Comment on above: Performed By: #### L [id number] ####[facility] ([facility])[address] [place] [address] MCV (RBC) [Entitic vol] 88.9 fL Normal 82.0-98.0 [facility] Comment on above: Performed By: #### L [id number] ####[facility] ([facility])[address] [place] [address] NRBC (PER 100 WBCS) BY AUTOMATED COUNT 0.3 % High 0 [facility] Comment on above: Performed By: #### L [id number] ####[facility] ([facility])[address] [place] [address] PLATELETS (10*3/UL) IN BLOOD AUTOMATED COUNT 162 10*3/uL Normal 150-400 [facility] Comment on above: Performed By: #### L [id number] ####[facility] ([facility])[address] [place] [address] RBC (Bld) [#/Vol] 4.22 10*6/uL Normal 4.20-5.70 [facility] Comment on above: Performed By: #### L [id number] ####[facility] ([facility])[address] [place] [address] WBC (Bld) [#/Vol] 6.99 10*3/uL Normal 4.00-10.60 [facility] Comment on above: Performed By: #### L [id number] ####[facility] ([facility])[address] [place] [address] COMPREHENSIVE METABOLIC PANE [facility] 10-02-2024 Albumin [Mass/Vol] 3.9 g/dL Normal 3.5-5.7 [facility] Comment on above: Performed By: #### L [id number] ####[facility] ([facility])[address] [place] [address] ALP [Catalytic activity/Vol] 90 U/L Normal 34-104 [facility] Comment on above: Performed By: #### L [id number] ####[facility] ([facility])[address] [place] [address] ALT [Catalytic activity/Vol] 758 U/L High 7-52 [facility] Comment on above: Performed By: #### L [id number] ####[facility] ([facility])[address] [place] [address] Anion gap [Moles/Vol] 26 mmol/L High 7-20 [facility] Comment on above: Performed By: #### L [id number] ####[facility] ([facility])[address] [place] [address] AST [Catalytic activity/Vol] 546 U/L High 13-39 [facility] Comment on above: Performed By: #### L [id number] ####[facility] ([facility])[address] [place] [address] Bilirubin [Mass/Vol] 1.7 mg/dL High 0.3-1.0 [facility] Comment on above: Performed By: #### L [id number] ####[facility] ([facility])[address] [place] [address] Calcium [Mass/Vol] 9.3 mg/dL Normal 8.6-10.3 [facility] Comment on above: Performed By: #### L [id number] ####[facility] ([facility])[address] [place] [address] Chloride [Moles/Vol] 100 mmol/L Normal 98-107 [facility] Comment on above: Performed By: #### L [id number] ####[facility] ([facility])[address] [place] [address] CO2 [Moles/Vol] 22 mmol/L Normal 21-31 [facility] Comment on above: Performed By: #### L [id number] ####[facility] ([facility])[address] [place] [address] Creatinine [Mass/Vol] 3.85 mg/dL High 0.70-1.30 [facility] Comment on above: Performed By: #### L [id number] ####[facility] ([facility])[address] [place] [address] GLOMERULAR FILTRATION RATE ML/MIN/1.73 SQ M.PREDICTED 14.9 mL/min/1.73m*2 Low >60.0 [facility] Comment on above: Result Comment: The [facility]???s estimated glomerular filtration rate (eGFR) will no [...] of individuals. Performed By: #### L [id number] ####[facility] ([facility])[address] [place] [address] Glucose [Mass/Vol] 95 mg/dL Normal 70-100 [facility] Comment on above: Performed By: #### L [id number] ####[facility] ([facility])[address] [place] [address] Potassium [Moles/Vol] 3.7 mmol/L Normal 3.5-5.1 [facility] Comment on above: Performed By: #### L [id number] ####[facility] ([facility])[address] [place] [address] Protein [Mass/Vol] 6.0 g/dL Normal 6.0-8.3 [facility] Comment on above: Performed By: #### L [id number] ####[facility] ([facility])[address] [place] [address] Sodium [Moles/Vol] 144 mmol/L Normal 136-145 [facility] Comment on above: Performed By: #### L [id number] ####[facility] ([facility])[address] [place] [address] Urea nitrogen [Mass/Vol] 71 mg/dL High 7-25 [facility] Comment on above: Performed By: #### L [id number] ####[facility] ([facility])[address] [place] [address] UREA NITROGEN/CREATININE (MASS RATIO) IN SER/PLAS 18.4 Normal [facility] Comment on above: Performed By: #### L [id number] ####[facility] ([facility])[address] [place] [address] MAGNESIUMon 10-02-2024 Magnesium [Mass/Vol] 2.1 mg/dL Normal 1.9-2.7 [facility] Comment on above: Performed By: #### L [id number] ####[facility] ([facility])[address] [place] [address] MANUAL DIFFERENTIALon 2024 ACANTHOCYTES PRESENCE IN BLOOD BY LIGHT MICROSCOPY Moderate Normal [facility] Comment on above: Performed By: #### L [id number] ####[facility] ([facility])[address] [place] [address] ANISOCYTOSIS PRESENCE IN BLOOD BY LIGHT MICROSCOPY Moderate Normal [facility] Comment on above: Performed By: #### L [id number] ####[facility] ([facility])[address] [place] [address] BASOPHILS (10*3/UL) IN BLOOD BY CALCULATION 0.02 10*3/uL Normal 0.00-0.20 [facility] Comment on above: Performed By: #### L [id number] ####[facility] ([facility])[address] [place] [address] BASOPHILS/100 LEUKOCYTES IN BLOOD BY AUTOMATED COUNT 0.3 % Normal 0.0-1.0 [facility] Comment on above: Performed By: #### L [id number] ####[facility] ([facility])[address] [place] [address] HAMZAH CELLS PRESENCE IN BLOOD BY LIGHT MICROSCOPY Slight Normal [facility] Comment on above: Performed By: #### L [id number] ####[facility] ([facility])[address] [place] [address] EOSINOPHILS (10*3/UL) IN BLOOD BY CALCULATION 0.18 10*3/uL Normal 0.00-0.50 [facility] Comment on above: Performed By: #### L [id number] ####[facility] ([facility])[address] [place] [address] EOSINOPHILS/100 LEUKOCYTES IN BLOOD BY AUTOMATED COUNT 2.6 % Normal 0.0-6.0 [facility] Comment on above: Performed By: #### L [id number] ####[facility] ([facility])[address] [place] [address] IMMATURE GRANULOCYTES (10*3/UL) IN BLOOD BY CALCULATION 0.05 10*3/uL Normal 0.00-0.20 [facility] Comment on above: Performed By: #### L [id number] ####[facility] ([facility])[address] [place] [address] IMMATURE GRANULOCYTES/100 LEUKOCYTES IN BLOOD BY AUTOMATED COUNT 0.7 % Normal 0.0-1.0 [facility] Comment on above: Performed By: #### L [id number] ####[facility] ([facility])[address] [place] [address] LYMPHOCYTES (10*3/UL) IN BLOOD BY CALCULATION 0.51 10*3/uL Low 1.20-4.00 [facility] Comment on above: Performed By: #### L [id number] ####[facility] ([facility])[address] [place] [address] LYMPHOCYTES/100 LEUKOCYTES IN BLOOD BY AUTOMATED COUNT 7.3 % Low 20.0-45.0 [facility] Comment on above: Performed By: #### L [id number] ####[facility] ([facility])[address] [place] [address] MONOCYTES (10*3/UL) IN BLOOD BY CALCUATION 0.50 10*3/uL Normal 0.10-1.00 [facility] Comment on above: Performed By: #### L [id number] ####[facility] ([facility])[address] [place] [address] MONOCYTES/100 LEUKOCYTES IN BLOOD BY AUTOMATED COUNT 7.2 % Normal 5.0-12.0 [facility] Comment on above: Performed By: #### L [id number] ####[facility] ([facility])[address] [place] [address] NEUTROPHILS (10*3/UL) IN BLOOD BY CALCULATION 5.7 10*3/uL Normal 1.6-7.6 [facility] Comment on above: Performed By: #### L [id number] ####[facility] ([facility])[address] [place] [address] NEUTROPHILS/100 LEUKOCYTES IN BLOOD BY AUTOMATED COUNT 81.9 % High 40.0-72.0 [facility] Comment on above: Performed By: #### L [id number] ####[facility] ([facility])[address] [place] [address] POIKILOCYTOSIS (PRESENCE) IN BLOOD BY LIGHT MICROSCOPY Marked Normal [facility] Comment on above: Performed By: #### L [id number] ####[facility] ([facility])[address] [place] [address] POLYCHROMASIA IN BLOOD BY LIGHT MICROSCOPY Slight Normal [facility] Comment on above: Performed By: #### L [id number] ####[facility] ([facility])[address] [place] [address] SCHISTOCYTES (PRESENCE) IN BLOOD BY LIGHT MICROSCOPY Moderate Normal [facility] Comment on above: Performed By: #### L [id number] ####[facility] ([facility])[address] [place] [address] TARGET CELLS IN BLOOD BY LIGHT MICROSCOPY Slight Normal [facility] Comment on above: Performed By: #### L [id number] ####[facility] ([facility])[address] [place] [address] PHOSPHORUSon 10-02-2024 Magnesium [Mass/Vol] 4.0 mg/dL Normal 2.5-5.0 [facility] Comment on above: Performed By: #### L [id number] ####[facility] ([facility])[address] [place] [address] PROTIME-INRon 10-02-2024 INR IN PPP BY COAGULATION ASSAY 2.51 High 0.90-1.10 [facility] Comment on above: Result Comment: ACCC P [...] CHEST 1995;[id number]. Performed By: #### L [id number] ####[facility] ([facility])[address] [place] [address] PROTHROMBIN TIME (PT) IN PPP BY COAGULATION ASSAY 26.5 Seconds High 12.3-14.8 [facility] Comment on above: Performed By: #### L [id number] ####[facility] ([facility])[address] [place] [address] 30on 10-01-2024 30 Normal [facility] 30 Normal [facility] ANAon 10-01-2024 DONNIE PATTERN Speckled Normal [facility] Comment on above: Performed By: #### L [id number] ####[facility] ([facility])[address] [place] [address] DONNIE TITER 1:40 Normal <=1:40 [facility] Comment on above: Result Comment: Test performed using [employer] IFA DONNIE Hep-2 Test, a pre-standardized assay designed for the qualitative and semi-quantitative detection of antinuclear antibodies. Performed By: #### L [id number] ####[facility] ([facility])[address] [place] [address] ANTI-SMOOTH MUSCLE ANTIBODY TITERon 10-01-2024 SMOOTH MUSCLE AB, IGG TITER <1:20 Normal <1:20 [facility] Comment on above: Result Comment: INTE RPRETIVE INFORMATION: Smooth Muscle Ab, IgG Titer Less than 1:20 ........ Negative - No antibody detected. 1:20 - 1:80 .......... Weak Positive - Suggest repeat in two to three weeks with fresh specimen. 1:160 or greater ...... Positive - Suggestive of autoimmune hepatitis or chronic active hepatitis.Performed By: [facility] [place] [id number] Director: Leonardo Bustillo MD, PhDCLIA Number: [id number] Performed By: #### L [id number] ####[facility] ([facility])[address] [place] [address] ANTI-XA (HEPARIN LEVEL)on HEPARIN UNFRACTIONATED (U/ML) IN PPP BY CHROMOGENIC METHOD >1.00 Critically high 0.3-0.7 [facility] Comment on above: Result Comment: Padmini roxaban and Apixaban will interfere with the anti Xa assay used to monitor UFH and LMWH. Performed By: #### L [id number] ####[facility] ([facility])[address] [place] [address] BASIC METABOLIC PANELon 09-16 Anion gap [Moles/Vol] 22 mmol/L High 7-20 [facility] Comment on above: Performed By: #### L [id number] ####[facility] ([facility])[address] [facility] [address] Calcium [Mass/Vol] 9.2 mg/dL Normal 8.6-10.3 [facility] Comment on above: Performed By: #### L [id number] ####[facility] ([facility])[address] [place] [address] Chloride [Moles/Vol] 100 mmol/L Normal 98-107 [facility] Comment on above: Performed By: #### L [id number] ####[facility] ([facility])[address] [place] [address] CO2 [Moles/Vol] 26 mmol/L Normal 21-31 [facility] Comment on above: Performed By: #### L [id number] ####[facility] ([facility])[address] [place] [address] Creatinine [Mass/Vol] 4.08 mg/dL High 0.70-1.30 [facility] Comment on above: Performed By: #### L [id number] ####[facility] ([facility])[address] [place] [address] GLOMERULAR FILTRATION RATE ML/MIN/1.73 SQ M.PREDICTED 13.9 mL/min/1.73m*2 Low >60.0 [facility] Comment on above: Result Comment: The [facility]???s estimated glomerular filtration rate (eGFR) will no [...] of individuals. Performed By: #### L [id number] ####[facility] ([facility])[address] [place] [address] Glucose [Mass/Vol] 95 mg/dL Normal 70-100 [facility] Comment on above: Performed By: #### L [id number] ####[facility] ([facility])[address] [place] [address] Potassium [Moles/Vol] 3.3 mmol/L Low 3.5-5.1 [facility] Comment on above: Performed By: #### L [id number] ####[facility] ([facility])[address] [place] [address] Sodium [Moles/Vol] 145 mmol/L Normal 136-145 [facility] Comment on above: Performed By: #### L [id number] ####[facility] ([facility])[address] [place] [address] Urea nitrogen [Mass/Vol] 75 mg/dL High 7-25 [facility] Comment on above: Performed By: #### L [id number] ####[facility] ([facility])[address] [place] [address] UREA NITROGEN/CREATININE (MASS RATIO) IN SER/PLAS 18.4 Normal [facility] Comment on above: Performed By: #### L [id number] ####[facility] ([facility])[address] [place] [address] Anion gap [Moles/Vol] 24 mmol/L High 7-20 [facility] Comment on above: Performed By: #### L [id number] ####[facility] ([facility])[address] [place] [address] Calcium [Mass/Vol] 9.4 mg/dL Normal 8.6-10.3 [facility] Comment on above: Performed By: #### L [id number] ####[facility] ([facility])[address] [place] [address] Chloride [Moles/Vol] 101 mmol/L Normal 98-107 [facility] Comment on above: Performed By: #### L [id number] ####[facility] ([facility])[address] [place] [address] CO2 [Moles/Vol] 25 mmol/L Normal 21-31 [facility] Comment on above: Performed By: #### L [id number] ####[facility] ([facility])[address] [place] [address] Creatinine [Mass/Vol] 4.01 mg/dL High 0.70-1.30 [facility] Comment on above: Performed By: #### L [id number] ####[facility] ([facility])[address] [place] [address] GLOMERULAR FILTRATION RATE ML/MIN/1.73 SQ M.PREDICTED 14.2 mL/min/1.73m*2 Low >60.0 [facility] Comment on above: Result Comment: The [facility]???s estimated glomerular filtration rate (eGFR) will no [...] of individuals. Performed By: #### L [id number] ####[facility] ([facility])[address] [place] [address] Glucose [Mass/Vol] 76 mg/dL Normal 70-100 [facility] Comment on above: Performed By: #### L [id number] ####[facility] ([facility])[address] [place] [address] Potassium [Moles/Vol] 3.5 mmol/L Normal 3.5-5.1 [facility] Comment on above: Performed By: #### L [id number] ####[facility] ([facility])[address] [place] [address] Sodium [Moles/Vol] 146 mmol/L High 136-145 [facility] Comment on above: Performed By: #### L [id number] ####[facility] ([facility])[address] [place] [address] Urea nitrogen [Mass/Vol] 78 mg/dL High 7-25 [facility] Comment on above: Performed By: #### L [id number] ####[facility] ([facility])[address] [place] [address] UREA NITROGEN/CREATININE (MASS RATIO) IN SER/PLAS 19.5 Normal [facility] Comment on above: Performed By: #### L [id number] ####[facility] ([facility])[address] [place] [address] Anion gap [Moles/Vol] 24 mmol/L High 7-20 [facility] Comment on above: Performed By: #### L [id number] ####[facility] ([facility]ER)[address] [place] [address] Calcium [Mass/Vol] 9.2 mg/dL Normal 8.6-10.3 [facility] Comment on above: Performed By: #### L [id number] ####[facility] ([facility])[address] [place] [address] Chloride [Moles/Vol] 103 mmol/L Normal 98-107 [facility] Comment on above: Performed By: #### L [id number] ####[facility] ([facility]ER)[address] [place] [address] CO2 [Moles/Vol] 21 mmol/L Normal 21-31 [facility] Comment on above: Performed By: #### L [id number] ####[facility] ([facility]ER)[address] [place] [address] Creatinine [Mass/Vol] 4.14 mg/dL High 0.70-1.30 [facility] Comment on above: Performed By: #### L [id number] ####[facility] ([facility])[address] [place] [address] GLOMERULAR FILTRATION RATE ML/MIN/1.73 SQ M.PREDICTED 13.7 mL/min/1.73m*2 Low >60.0 [facility] Comment on above: Result Comment: The [facility]???s estimated glomerular filtration rate (eGFR) will no [...] of individuals. Performed By: #### L [id number] ####[facility] ([facility])[address] [place] [address] Glucose [Mass/Vol] 72 mg/dL Normal 70-100 [facility] Comment on above: Performed By: #### L [id number] ####[facility] ([facility])[address] [place] [address] Potassium [Moles/Vol] 4.0 mmol/L Normal 3.5-5.1 [facility] Comment on above: Performed By: #### L [id number] ####[facility] ([facility])[address] [place] [address] Sodium [Moles/Vol] 144 mmol/L Normal 136-145 [facility] Comment on above: Performed By: #### L [id number] ####[facility] ([facility])[address] [place] [address] Urea nitrogen [Mass/Vol] 78 mg/dL High 7-25 [facility] Comment on above: Performed By: #### L [id number] ####[facility] ([facility])[address] [place] [address] UREA NITROGEN/CREATININE (MASS RATIO) IN SER/PLAS 18.8 Normal [facility] Comment on above: Performed By: #### L [id number] ####[facility] ([facility])[address] [place] [address] Anion gap [Moles/Vol] 20 mmol/L Normal 7-20 [facility] Comment on above: Performed By: #### L [id number] ####[facility] ([facility])[address] [place] [address] Calcium [Mass/Vol] 9.2 mg/dL Normal 8.6-10.3 [facility] Comment on above: Performed By: #### L [id number] ####[facility] ([facility])[address] [place] [address] Chloride [Moles/Vol] 102 mmol/L Normal 98-107 [facility] Comment on above: Performed By: #### L [id number] ####[facility] ([facility])[address] [place] [address] CO2 [Moles/Vol] 25 mmol/L Normal 21-31 [facility] Comment on above: Performed By: #### L [id number] ####[facility] ([facility])[address] [place] [address] Creatinine [Mass/Vol] 4.10 mg/dL High 0.70-1.30 [facility] Comment on above: Performed By: #### L [id number] ####[facility] ([facility])[address] [place] [address] GLOMERULAR FILTRATION RATE ML/MIN/1.73 SQ M.PREDICTED 13.8 mL/min/1.73m*2 Low >60.0 [facility] Comment on above: Result Comment: The [facility]???s estimated glomerular filtration rate (eGFR) will no [...] of individuals. Performed By: #### L [id number] ####[facility] ([facility])[address] [place] [address] Glucose [Mass/Vol] 70 mg/dL Normal 70-100 [facility] Comment on above: Performed By: #### L [id number] ####[facility] ([facility])[address] [place] [address] Potassium [Moles/Vol] 4.1 mmol/L Normal 3.5-5.1 [facility] Comment on above: Performed By: #### L [id number] ####[facility] ([facility])[address] [place] [address] Sodium [Moles/Vol] 143 mmol/L Normal 136-145 [facility] Comment on above: Performed By: #### L [id number] ####[facility] ([facility] [place] [address] Urea nitrogen [Mass/Vol] 77 mg/dL High 7-25 [facility] Comment on above: Performed By: #### L [id number] ####[facility] ([facility])[address] [place] [address] UREA NITROGEN/CREATININE (MASS RATIO) IN SER/PLAS 18.8 Normal [facility] Comment on above: Performed By: #### L [id number] ####[facility] ([facility])[address] [place] [address] CBC WITH AUTO DIFFERENTIALon 10-01-2024 Erythrocyte distribution width (RBC) [Ratio] 23.0 % High 11.5-15.0 [facility] Comment on above: Performed By: #### L [id number] ####[facility] ([facility])[address] [place] [address] ERYTHROCYTE MEAN CORPUSCULAR HEMOGLOBIN CONCENTRATION (G/DL) BY AUTOMATED 30.8 g/dL Low 32.0-35.0 [facility] Comment on above: Performed By: #### L [id number] ####[facility] ([facility])[address] [place] [address] Hematocrit (Bld) [Volume fraction] 34.4 % Low 39.0-55.0 [facility] Comment on above: Performed By: #### L [id number] ####[facility] ([facility])[address] [place] [address] Hemoglobin (Bld) [Mass/Vol] 10.6 g/dL Low 13.0-17.0 [facility] Comment on above: Performed By: #### L [id number] ####[facility] ([facility])[address] [place] [address] MCH (RBC) [Entitic mass] 27.7 pg Normal 27.0-33.0 [facility] Comment on above: Performed By: #### L [id number] ####[facility] ([facility])[address] [place] [address] MCV (RBC) [Entitic vol] 89.8 fL Normal 82.0-98.0 [facility] Comment on above: Performed By: #### L [id number] ####[facility] ([facility])[address] [place] [address] NRBC (PER 100 WBCS) BY AUTOMATED COUNT 0.7 % High 0 [facility] Comment on above: Performed By: #### L [id number] ####[facility] ([facility])[address] [place] [address] PLATELETS (10*3/UL) IN BLOOD AUTOMATED COUNT 159 10*3/uL Normal 150-400 [facility] Comment on above: Performed By: #### L [id number] ####[facility] ([facility])[address] [place] [address] RBC (Bld) [#/Vol] 3.83 10*6/uL Low 4.20-5.70 [facility] Comment on above: Performed By: #### L [id number] ####[facility] ([facility])[address] [place] [address] WBC (Bld) [#/Vol] 7.48 10*3/uL Normal 4.00-10.60 [facility] Comment on above: Performed By: #### L [id number] ####[facility] ([facility])[address] [place] [address] CMV DNA, QUANTITATIVE, NAAT, PLASMAon 10-01-2024 CMV QNT BY NAAT, PLASMA INTERP Detected Abnormal Not Detected [facility] Comment on above: Result Comment: INTE RPRETIVE [...] due tocommutability issues with the standard.Performed By: [id number] [place], [place] [email or web address] Director: Leonardo Bustillo MD, PhDCLIA Number: [id number] Performed By: #### L [id number] ####[facility] [[email or web address] ([facility])[address] [place] [address] CMV QNT BY NAAT, PLASMA IU/ML Not Quantified Normal [facility] Comment on above: Performed By: #### L [id number] ####[facility] [[email or web address] ([facility])[address] [place] [address] CMV QNT BY NAAT, PLASMA LOG IU/ML Not Quantified Normal [facility] Comment on above: Result Comment: Not Quantified- CMV DNA was detected, but at a level below 1.54log IU/mL (34.5 IU/mL). Virus detected at a level below 1.54 logIU/mL cannot be accurately quantified by this assay. Performed By: #### L [id number] ####[facility] ([facility])[address] [place] [address] COMPREHENSIVE METABOLIC PANE Aldo 10-01-2024 Albumin [Mass/Vol] 3.3 g/dL Low 3.5-5.7 [facility] Comment on above: Performed By: #### L [id number] ####[facility] ([facility])[address] [place] [address] ALP [Catalytic activity/Vol] 73 U/L Normal 34-104 [facility] Comment on above: Performed By: #### L [id number] ####[facility] ([facility])[address] [place] [address] ALT [Catalytic activity/Vol] 1051 U/L High 7-52 [facility] Comment on above: Performed By: #### L [id number] ####[facility] ([facility])[address] [place] [address] Anion gap [Moles/Vol] 22 mmol/L High 7-20 [facility] Comment on above: Performed By: #### L [id number] ####[facility] ([facility])[address] [place] [address] AST [Catalytic activity/Vol] 1190 U/L High 13-39 [facility] Comment on above: Performed By: #### L [id number] ####[facility] ([facility])[address] [place] [address] Bilirubin [Mass/Vol] 1.6 mg/dL High 0.3-1.0 [facility] Comment on above: Performed By: #### L [id number] ####[facility] ([facility])[address] [place] [address] Calcium [Mass/Vol] 9.1 mg/dL Normal 8.6-10.3 [facility] Comment on above: Performed By: #### L [id number] ####[facility] ([facility])[address] [place] [address] Chloride [Moles/Vol] 102 mmol/L Normal 98-107 [facility] Comment on above: Performed By: #### L [id number] ####[facility] ([facility])[address] [place] [address] CO2 [Moles/Vol] 23 mmol/L Normal 21-31 [facility] Comment on above: Performed By: #### L [id number] ####[facility] ([facility])[address] [place] [address] Creatinine [Mass/Vol] 4.14 mg/dL High 0.70-1.30 [facility] Comment on above: Performed By: #### L [id number] ####[facility] ([facility])[address] [place] [address] GLOMERULAR FILTRATION RATE ML/MIN/1.73 SQ M.PREDICTED 13.7 mL/min/1.73m*2 Low >60.0 [facility] Comment on above: Result Comment: The [facility]???s estimated glomerular filtration rate (eGFR) will no [...] of individuals. Performed By: #### L [id number] ####[facility] ([facility])[address] [place] [address] Glucose [Mass/Vol] 59 mg/dL Low 70-100 [facility] Comment on above: Performed By: #### L [id number] ####[facility] ([facility])[address] [place] [address] Potassium [Moles/Vol] 4.3 mmol/L Normal 3.5-5.1 [facility] Comment on above: Performed By: #### L [id number] ####[facility] ([facility])[address] [place] [address] Protein [Mass/Vol] 5.4 g/dL Low 6.0-8.3 [facility] Comment on above: Performed By: #### L [id number] ####[facility] ([facility])[address] [place] [address] Sodium [Moles/Vol] 143 mmol/L Normal 136-145 [facility] Comment on above: Performed By: #### L [id number] ####[facility] ([facility])[address] [place] [address] Urea nitrogen [Mass/Vol] 78 mg/dL High 7-25 [facility] Comment on above: Performed By: #### L [id number] ####[facility] ([facility])[address] [place] [address] UREA NITROGEN/CREATININE (MASS RATIO) IN SER/PLAS 18.8 Normal [facility] Comment on above: Performed By: #### L [id number] ####[facility] ([facility])[address] [place] [address] ANNITA-MALONE VIRUS BY QUANTI TATIVE NAAT, PLASMAon 10-01-2024 EBV QNT BY NAAT, PLASMA INTERP Not detected Normal Not Detected [facility] Comment on above: Result Comment: INTE RPRETIVE [...] due tocommutability issues with the standard.Performed By: [id number] [place], [place] [email or web address] Director: Leonardo Bustillo MD, PhDCLIA Number: [id number] Performed By: #### L [id number] ####[facility] ([facility])[address] [place] [address] EBV QNT BY NAAT, PLASMA IU/ML Not detected Normal [facility] Comment on above: Performed By: #### L [id number] ####[facility] ([facility])[address] [place] [address] EBV QNT BY NAAT, PLASMA LOG IU/ML Not detected Normal [facility] Comment on above: Performed By: #### L [id number] ####[facility] ([facility])[address] [place] [address] HSV PCRon 10-01-2024 HERPES SIMPLEX VIRUS SUBTYPE SOURCE Serum Normal [facility] Comment on above: Performed By: #### L [id number] ####[facility] ([facility])[address] [place] [address] HSV 1 SUBTYPE BY PCR Not detected Normal [facility] Comment on above: Performed By: #### L [id number] ####[facility] ([facility])[address] [place] [address] HSV 2 SUBTYPE BY PCR Not detected Normal [facility] Comment on above: Result Comment: INTE RPRETIVE INFORMATION: HSV-1 and HSV-2 Subtype by PCRA negative result does not rule out the presence of PCR inhibitorsin the patient specimen or test-specific nucleic acid inconcentrations below the level of detection by this test.This test was developed and its performance characteristicsdetermined by [email or web address]. It has not been cleared orapproved by the [place] Food and Drug Administration. This test wasperformed in a CLIA certified laboratory and is intended forclinical purposes.Performed By: [id number] [place], [place] [address]Eddzolqnyw Director: Leonardo Bustillo MD, PhDCLIA Number: [id number] Performed By: #### L [id number] ####[facility] ([facility])[address] [place] [address] LACTIC ACID, PLASMAon 2024 LACTATE (MMOL/L) IN SER/PLAS 1.5 mmol/L Normal 0.5-2.2 [facility] Comment on above: Performed By: #### L [id number] ####[facility] ([facility])[address] [place] [address] MAGNESIUMon 10-01-2024 Magnesium [Mass/Vol] 2.2 mg/dL Normal 1.9-2.7 [facility] Comment on above: Performed By: #### L [id number] ####[facility] ([facility])[address] [place] [address] MANUAL DIFFERENTIALon 2024 ACANTHOCYTES PRESENCE IN BLOOD BY LIGHT MICROSCOPY Moderate Normal [facility] Comment on above: Performed By: #### L [id number] ####[facility] ([facility])[address] [place] [address] ANISOCYTOSIS PRESENCE IN BLOOD BY LIGHT MICROSCOPY Moderate Normal [facility] Comment on above: Performed By: #### L [id number] ####[facility] ([facility])[address] [place] [address] BASOPHILS (10*3/UL) IN BLOOD BY CALCULATION 0.02 10*3/uL Normal 0.00-0.20 [facility] Comment on above: Performed By: #### L [id number] ####[facility] ([facility])[address] [place] [address] BASOPHILS/100 LEUKOCYTES IN BLOOD BY AUTOMATED COUNT 0.3 % Normal 0.0-1.0 [facility] Comment on above: Performed By: #### L [id number] ####[facility] ([facility])[address] [place] [address] EOSINOPHILS (10*3/UL) IN BLOOD BY CALCULATION 0.07 10*3/uL Normal 0.00-0.50 [facility] Comment on above: Performed By: #### L [id number] ####[facility] ([facility])[address] [place] [address] EOSINOPHILS/100 LEUKOCYTES IN BLOOD BY AUTOMATED COUNT 0.9 % Normal 0.0-6.0 [facility] Comment on above: Performed By: #### L [id number] ####[facility] ([facility])[address] [place] [address] IMMATURE GRANULOCYTES (10*3/UL) IN BLOOD BY CALCULATION 0.07 10*3/uL Normal 0.00-0.20 [facility] Comment on above: Performed By: #### L [id number] ####[facility] ([facility])[address] [place] [address] IMMATURE GRANULOCYTES/100 LEUKOCYTES IN BLOOD BY AUTOMATED COUNT 0.9 % Normal 0.0-1.0 [facility] Comment on above: Performed By: #### L [id number] ####[facility] ([facility])[address] [place] [address] LYMPHOCYTES (10*3/UL) IN BLOOD BY CALCULATION 0.56 10*3/uL Low 1.20-4.00 [facility] Comment on above: Performed By: #### L [id number] ####[facility] ([facility])[address] [place] [address] LYMPHOCYTES/100 LEUKOCYTES IN BLOOD BY AUTOMATED COUNT 7.5 % Low 20.0-45.0 [facility] Comment on above: Performed By: #### L [id number] ####[facility] ([facility])[address] [place] [address] MONOCYTES (10*3/UL) IN BLOOD BY CALCUATION 0.42 10*3/uL Normal 0.10-1.00 [facility] Comment on above: Performed By: #### L [id number] ####[facility] ([facility])[address] [place] [address] MONOCYTES/100 LEUKOCYTES IN BLOOD BY AUTOMATED COUNT 5.6 % Normal 5.0-12.0 [facility] Comment on above: Performed By: #### L [id number] ####[facility] ([facility])[address] [place] [address] NEUTROPHILS (10*3/UL) IN BLOOD BY CALCULATION 6.3 10*3/uL Normal 1.6-7.6 [facility] Comment on above: Performed By: #### L [id number] ####[facility] ([facility])[address] [place] [address] NEUTROPHILS/100 LEUKOCYTES IN BLOOD BY AUTOMATED COUNT 84.8 % High 40.0-72.0 [facility] Comment on above: Performed By: #### L [id number] ####[facility] ([facility])[address] [place] [address] POIKILOCYTOSIS (PRESENCE) IN BLOOD BY LIGHT MICROSCOPY Moderate Normal [facility] Comment on above: Performed By: #### L [id number] ####[facility] ([facility])[address] [place] [address] POLYCHROMASIA IN BLOOD BY LIGHT MICROSCOPY Slight Normal [facility] Comment on above: Performed By: #### L [id number] ####[facility] ([facility])[address] [place] [address] SCHISTOCYTES (PRESENCE) IN BLOOD BY LIGHT MICROSCOPY Moderate Normal [facility] Comment on above: Performed By: #### L [id number] ####[facility] ([facility])[address] [place] [address] PHOSPHORUSon 10-01-2024 Magnesium [Mass/Vol] 4.5 mg/dL Normal 2.5-5.0 [facility] Comment on above: Performed By: #### L [id number] ####[facility] ([facility])[address] [place] [address] POCT GLUCOSE METER UNSOLICIT ED RESULTSon 10-01-2024 Glucose [Mass/Vol] 83 mg/dL Normal 70-105 [facility] Comment on above: Order Comment: Waive d Testing in the ED is performed under the ED CLIA certificate #[id number]. Result Comment: [email or web address] Performed By: #### L [id number] ####[facility] ([facility])[address] [place] [address] PROTIME-INRon 10-01-2024 INR IN PPP BY COAGULATION ASSAY 3.55 High 0.90-1.10 [facility] Comment on above: Result Comment: ACCC P [...] CHEST 1995;[id number]. Performed By: #### L [id number] ####[facility] ([facility])[address] [place] [address] PROTHROMBIN TIME (PT) IN PPP BY COAGULATION ASSAY 34.4 Seconds High 12.3-14.8 [facility] Comment on above: Performed By: #### L [id number] ####[facility] ([facility])[address] [place] [address] SODIUM, URINE, RANDOMon 09-16 Sodium (U) [Moles/Vol] 103 mmol/L Normal [facility] Comment on above: Performed By: #### L [id number] ####[facility] ([facility])[address] [place] [address] 30on 09-30-2024 30 Normal [facility] ACETAMINOPHEN LEVELon 2024 ACETAMINOPHEN (UG/ML) IN SER/PLAS <10 Low 10-30 [facility] Comment on above: Performed By: #### L [id number] ####[facility] ([facility])[address] [place] [address] AFB CULTUREon 09-30-2024 AFB CULTURE No growth at 42 days Normal [facility] Comment on above: Performed By: #### L [id number] ####[facility] ([facility])[address] [place] [address] AFB STAIN No acid fast bacilli seen Normal [facility] Comment on above: Performed By: #### L [id number] ####[facility] ([facility])[address] [place] [address] ALBUMIN, BODY FLUIDon 2024 ALBUMIN (G/DL) IN BODY FLUID 2.0 g/dL Normal [facility] Comment on above: Result Comment: The reference range and other method performance specifications have not been established for this test in fluids. the test result should be integrated into the clinical context for interpretation. Performed By: #### L [id number] ####[facility] ([facility])[address] [place] [address] AMMONIAon 09-30-2024 AMMONIA (UMOL/L) IN PLASMA 76 umol/L High 18-72 [facility] Comment on above: Performed By: #### L [id number] ####[facility] ([facility])[address] [place] [address] APTTon 09-30-2024 ACTIVATED PARTIAL THROMBOPLASTIN TIME IN PPP BY COAGULATION ASSAY 96.4 Seconds High 25.0-35.0 [facility] Comment on above: Order Comment: Timed lab draw, please do not draw early. Thank you. Result Comment: Clin ical significance of the APTT is questionable in the presence of heparin. Performed By: #### L [id number] ####[facility] ([facility])[address] [place] [address] ACTIVATED PARTIAL THROMBOPLASTIN TIME IN PPP BY COAGULATION ASSAY 91.6 Seconds High 25.0-35.0 [facility] Comment on above: Result Comment: Clin ical significance of the APTT is questionable in the presence of heparin. Performed By: #### L [id number] ####[facility] ([facility])[address] [place] [address] BASIC METABOLIC PANELon 09-16 Anion gap [Moles/Vol] 23 mmol/L High 7-20 [facility] Comment on above: Performed By: #### L [id number] ####[facility] ([facility])[address] [place] [address] Calcium [Mass/Vol] 9.4 mg/dL Normal 8.6-10.3 [facility] Comment on above: Performed By: #### L [id number] ####[facility] ([facility])[address] [place] [address] Chloride [Moles/Vol] 102 mmol/L Normal 98-107 [facility] Comment on above: Performed By: #### L [id number] ####[facility] ([facility])[address] [place] [address] CO2 [Moles/Vol] 21 mmol/L Normal 21-31 [facility] Comment on above: Performed By: #### L [id number] ####[facility] ([facility])[address] [place] [address] Creatinine [Mass/Vol] 4.33 mg/dL High 0.70-1.30 [facility] Comment on above: Performed By: #### L [id number] ####[facility] ([facility])[address] [place] [address] GLOMERULAR FILTRATION RATE ML/MIN/1.73 SQ M.PREDICTED 12.9 mL/min/1.73m*2 Low >60.0 [facility] Comment on above: Result Comment: The [facility]???s estimated glomerular filtration rate (eGFR) will no [...] of individuals. Performed By: #### L [id number] ####[facility] ([facility])[address] [place] [address] Glucose [Mass/Vol] 79 mg/dL Normal 70-100 [facility] Comment on above: Performed By: #### L [id number] ####[facility] ([facility])[address] [place] [address] Potassium [Moles/Vol] 4.6 mmol/L Normal 3.5-5.1 [facility] Comment on above: Performed By: #### L [id number] ####[facility] ([facility])[address] [place] [address] Sodium [Moles/Vol] 141 mmol/L Normal 136-145 [facility] Comment on above: Performed By: #### L [id number] ####[facility] ([facility])[address] [place] [address] Urea nitrogen [Mass/Vol] 78 mg/dL High 7-25 [facility] Comment on above: Performed By: #### L [id number] ####[facility] ([facility])[address] [place] [address] UREA NITROGEN/CREATININE (MASS RATIO) IN SER/PLAS 18.0 Normal [facility] Comment on above: Performed By: #### L [id number] ####[facility] ([facility])[address] [place] [address] Anion gap [Moles/Vol] 21 mmol/L High 7-20 [facility] Comment on above: Performed By: #### L [id number] ####[facility] ([facility])[address] [place] [address] Calcium [Mass/Vol] 9.1 mg/dL Normal 8.6-10.3 [facility] Comment on above: Performed By: #### L [id number] ####[facility] ([facility])[address] [place] [address] Chloride [Moles/Vol] 100 mmol/L Normal 98-107 [facility] Comment on above: Performed By: #### L [id number] ####[facility] ([facility])[address] [place] [address] CO2 [Moles/Vol] 23 mmol/L Normal 21-31 [facility] Comment on above: Performed By: #### L [id number] ####[facility] ([facility])[address] [place] [address] Creatinine [Mass/Vol] 4.29 mg/dL High 0.70-1.30 [facility] Comment on above: Performed By: #### L [id number] ####[facility] ([facility])[address] [place] [address] GLOMERULAR FILTRATION RATE ML/MIN/1.73 SQ M.PREDICTED 13.1 mL/min/1.73m*2 Low >60.0 [facility] Comment on above: Result Comment: The [facility]???s estimated glomerular filtration rate (eGFR) will no [...] of individuals. Performed By: #### L [id number] ####[facility] ([facility])[address] [place] [address] Glucose [Mass/Vol] 86 mg/dL Normal 70-100 [facility] Comment on above: Performed By: #### L [id number] ####[facility] ([facility])[address] [place] [address] Potassium [Moles/Vol] 4.5 mmol/L Normal 3.5-5.1 [facility] Comment on above: Performed By: #### L [id number] ####[facility] ([facility])[address] [place] [address] Sodium [Moles/Vol] 139 mmol/L Normal 136-145 [facility] Comment on above: Performed By: #### L [id number] ####[facility] ([facility])[address] [place] [address] Urea nitrogen [Mass/Vol] 76 mg/dL High 7-25 [facility] Comment on above: Performed By: #### L [id number] ####[facility] ([facility])[address] [place] [address] UREA NITROGEN/CREATININE (MASS RATIO) IN SER/PLAS 17.7 Normal [facility] Comment on above: Performed By: #### L [id number] ####[facility] ([facility])[address] [place] [address] Anion gap [Moles/Vol] 21 mmol/L High 7-20 [facility] Comment on above: Performed By: #### L [id number] ####[facility] ([facility])[address] [place] [address] Calcium [Mass/Vol] 9.5 mg/dL Normal 8.6-10.3 [facility] Comment on above: Performed By: #### L [id number] ####[facility] ([facility])[address] [place] [address] Chloride [Moles/Vol] 101 mmol/L Normal 98-107 [facility] Comment on above: Performed By: #### L [id number] ####[facility] ([facility])[address] [place] [address] CO2 [Moles/Vol] 23 mmol/L Normal 21-31 [facility] Comment on above: Performed By: #### L [id number] ####[facility] [facility] ([facility])[address] [place] [address] Creatinine [Mass/Vol] 4.31 mg/dL High 0.70-1.30 [facility] Comment on above: Performed By: #### L [id number] ####[facility] ([facility])[address] [place] [address] GLOMERULAR FILTRATION RATE ML/MIN/1.73 SQ M.PREDICTED 13.0 mL/min/1.73m*2 Low >60.0 [facility] Comment on above: Result Comment: The [facility]???s estimated glomerular filtration rate (eGFR) will no [...] of individuals. Performed By: #### L [id number] ####[facility] ([facility])[address] [place] [address] Glucose [Mass/Vol] 69 mg/dL Low 70-100 [facility] Comment on above: Performed By: #### L [id number] ####[facility] ([facility])[address] [place] [address] Potassium [Moles/Vol] 4.9 mmol/L Normal 3.5-5.1 [facility] Comment on above: Performed By: #### L [id number] ####[facility] ([facility])[address] [place] [address] Sodium [Moles/Vol] 140 mmol/L Normal 136-145 [facility] Comment on above: Performed By: #### L [id number] ####[facility] ([facility])[address] [place] [address] Urea nitrogen [Mass/Vol] 76 mg/dL High 7-25 [facility] Comment on above: Performed By: #### L [id number] ####[facility] ([facility])[address] [place] [address] UREA NITROGEN/CREATININE (MASS RATIO) IN SER/PLAS 17.6 Normal [facility] Comment on above: Performed By: #### L [id number] ####[facility] ([facility])[address] [place] [address] Anion gap [Moles/Vol] 18 mmol/L Normal 7-20 [facility] Comment on above: Performed By: #### L [id number] ####[facility] ([facility])[address] [place] [address] Calcium [Mass/Vol] 9.9 mg/dL Normal 8.6-10.3 [facility] Comment on above: Performed By: #### L [id number] ####[facility] ([facility])[address] [place] [address] Chloride [Moles/Vol] 101 mmol/L Normal 98-107 [facility] Comment on above: Performed By: #### L [id number] ####[facility] ([facility])[address] [place] [address] CO2 [Moles/Vol] 23 mmol/L Normal 21-31 [facility] Comment on above: Performed By: #### L [id number] ####[facility] ([facility])[address] [place] [address] Creatinine [Mass/Vol] 4.28 mg/dL High 0.70-1.30 [facility] Comment on above: Performed By: #### L [id number] ####[facility] ([facility])[address] [place] [address] GLOMERULAR FILTRATION RATE ML/MIN/1.73 SQ M.PREDICTED 13.1 mL/min/1.73m*2 Low >60.0 [facility] Comment on above: Result Comment: The [facility]???s estimated glomerular filtration rate (eGFR) will no [...] of individuals. Performed By: #### L [id number] ####[facility] ([facility])[address] [place] [address] Glucose [Mass/Vol] 78 mg/dL Normal 70-100 [facility] Comment on above: Performed By: #### L [id number] ####[facility] ([facility])[address] [place] [address] Potassium [Moles/Vol] 5.6 mmol/L High 3.5-5.1 [facility] Comment on above: Performed By: #### L [id number] ####[facility] ([facility])[address] [place] [address] Sodium [Moles/Vol] 136 mmol/L Normal 136-145 [facility] Comment on above: Performed By: #### L [id number] ####[facility] ([facility])[address] [place] [address] Urea nitrogen [Mass/Vol] 75 mg/dL High 7-25 [facility] Comment on above: Performed By: #### L [id number] ####[facility] ([facility])[address] [place] [address] UREA NITROGEN/CREATININE (MASS RATIO) IN SER/PLAS 17.5 Normal [facility] Comment on above: Performed By: #### L [id number] ####[facility] ([facility])[address] [place] [address] Anion gap [Moles/Vol] 17 mmol/L Normal 7-20 [facility] Comment on above: Performed By: #### L [id number] ####[facility] ([facility])[address] [place] [address] Calcium [Mass/Vol] 9.8 mg/dL Normal 8.6-10.3 [facility] Comment on above: Performed By: #### L [id number] ####[facility] ([facility])[address] [place] [address] Chloride [Moles/Vol] 104 mmol/L Normal 98-107 [facility] Comment on above: Performed By: #### L [id number] ####[facility] ([facility])[address] [place] [address] CO2 [Moles/Vol] 20 mmol/L Low 21-31 [facility] Comment on above: Performed By: #### L [id number] ####[facility] ([facility])[address] [place] [address] Creatinine [Mass/Vol] 4.15 mg/dL High 0.70-1.30 [facility] Comment on above: Performed By: #### L [id number] ####[facility] ([facility])[address] [place] [address] GLOMERULAR FILTRATION RATE ML/MIN/1.73 SQ M.PREDICTED 13.6 mL/min/1.73m*2 Low >60.0 [facility] Comment on above: Result Comment: The [facility]???s estimated glomerular filtration rate (eGFR) will no [...] of individuals. Performed By: #### L [id number] ####[facility] ([facility])[address] [place] [address] Glucose [Mass/Vol] 81 mg/dL Normal 70-100 [facility] Comment on above: Performed By: #### L [id number] ####[facility] ([facility])[address] [place] [address] Potassium [Moles/Vol] 5.6 mmol/L High 3.5-5.1 [facility] Comment on above: Performed By: #### L [id number] ####[facility] ([facility])[address] [place] [address] Sodium [Moles/Vol] 135 mmol/L Low 136-145 [facility] Comment on above: Performed By: #### L [id number] ####[facility] ([facility])[address] [place] [address] Urea nitrogen [Mass/Vol] 73 mg/dL High 7- [facility] Comment on above: Performed By: #### L [id number] ####[facility] ([facility])[address] [place] [address] UREA NITROGEN/CREATININE (MASS RATIO) IN SER/PLAS 17.6 [facility] Comment on above: Performed By: #### L [id number] ####[facility] ([facility])[address] [place] [address] BODY FLUID CELL DIFFERENTIAL on 09-30-2024 BASOPHILS TOTAL PER COUNTED LEUKOCYTES IN BODY FLUID BY MANUAL COUNT [facility] Comment on above: Order Comment: Diffe rential performed on cytospin Performed By: #### L [id number] ####[facility] ([facility])[address] [place] [address] CELLS COUNTED TOTAL (#) IN BODY FLUID 100 [facility] Comment on above: Order Comment: Diffe rential performed on cytospin Performed By: #### L [id number] ####[facility] ([facility])[address] [place] [address] EOSINOPHILS TOTAL PER COUNTED LEUKOCYTES IN BODY FLUID BY MANUAL COUNT [facility] Comment on above: Order Comment: Diffe rential performed on cytospin Performed By: #### L [id number] ####[facility] ([facility])[address] [place] [address] LYMPHOCYTES TOTAL PER COUNTED LEUKOCYTES IN BODY FLUID BY MANUAL COUNT 37 [facility] Comment on above: Order Comment: Diffe rential performed on cytospin Performed By: #### L [id number] ####[facility] ([facility])[address] [place] [address] MESOTHELIAL CELLS TOTAL PER COUNTED LEUKOCYTES IN BODY FLUID BY MANUAL COUN Normal [facility] Comment on above: Order Comment: Diffe rential performed on cytospin Performed By: #### L [id number] ####[facility] ([facility])[address] [place] [address] MONOCYTES+MACROPHAG ES TOTAL PER COUNTED LEUKOCYTES IN BODY FLUID BY MANUAL 23 Normal [facility] Comment on above: Order Comment: Diffe rential performed on cytospin Performed By: #### L [id number] ####[facility] ([facility])[address] [place] [address] NEUTROPHILS TOTAL PER COUNTED LEUKOCYTES IN BODY FLUID BY MANUAL COUNT 40 Normal [facility] Comment on above: Order Comment: Diffe rential performed on cytospin Performed By: #### L [id number] ####[facility] ([facility])[address] [place] [address] OTHER CELLS BODY FLUID (MANUAL) [facility] Comment on above: Order Comment: Diffe rential performed on cytospin Performed By: #### L [id number] ####[facility] ([facility])[address] [place] [address] BODY FLUID CULTUREon 025 Bacteria identified Cx Nom (Unsp spec) No growth at 5 days Normal [facility] Comment on above: Performed By: #### L [id number] ####[facility] ([facility])[address] [place] [address] GRAM STAIN RESULT Normal [facility] Comment on above: Result Comment: Poly morphonuclear leukocytesNo organisms seenCytocentrifuge sample Performed By: #### L [id number] ####[facility] ([facility])[address] [place] [address] CBC WITH AUTO DIFFERENTIALon 09-30-2024 Erythrocyte distribution width (RBC) [Ratio] 23.0 % High 11.5-15.0 [facility] Comment on above: Performed By: #### L [id number] ####[facility] ([facility])[address] [place] [address] ERYTHROCYTE MEAN CORPUSCULAR HEMOGLOBIN CONCENTRATION (G/DL) BY AUTOMATED 28.5 g/dL Low 32.0-35.0 [facility] Comment on above: Performed By: #### L [id number] ####[facility] ([facility])[address] [place] [address] Hematocrit (Bld) [Volume fraction] 35.5 % Low 39.0-55.0 [facility] Comment on above: Performed By: #### L [id number] ####[facility] ([facility])[address] [place] [address] Hemoglobin (Bld) [Mass/Vol] 10.1 g/dL Low 13.0-17.0 [facility] Comment on above: Performed By: #### L [id number] ####[facility] ([facility])[address] [place] [address] MCH (RBC) [Entitic mass] 27.5 pg Normal 27.0-33.0 [facility] Comment on above: Performed By: #### L [id number] ####[facility] ([facility])[address] [place] [address] MCV (RBC) [Entitic vol] 96.7 fL Normal 82.0-98.0 [facility] Comment on above: Performed By: #### L [id number] ####[facility] ([facility])[address] [place] [address] NRBC (PER 100 WBCS) BY AUTOMATED COUNT 0.6 % High 0 [facility] Comment on above: Performed By: #### L [id number] ####[facility] ([facility])[address] [place] [address] PLATELETS (10*3/UL) IN BLOOD AUTOMATED COUNT 185 10*3/uL Normal 150-400 [facility] Comment on above: Performed By: #### L [id number] ####[facility] ([facility])[address] [place] [address] RBC (Bld) [#/Vol] 3.67 10*6/uL Low 4.20-5.70 [facility] Comment on above: Performed By: #### L [id number] ####[facility] ([facility])[address] [place] [address] WBC (Bld) [#/Vol] 10.01 10*3/uL Normal 4.00-10.60 [facility] Comment on above: Performed By: #### L [id number] ####[facility] ([facility])[address] [place] [address] COMPREHENSIVE METABOLIC PANE Ald[place] 09-30-2024 Albumin [Mass/Vol] 3.6 g/dL Normal 3.5-5.7 [facility] Comment on above: Performed By: #### L [id number] ####[facility] ([facility])[address] [place] [address] ALP [Catalytic activity/Vol] 80 U/L Normal 34-104 [facility] Comment on above: Performed By: #### L [id number] ####[facility] ([facility])[address] [place] [address] ALT [Catalytic activity/Vol] 1499 U/L High 7-52 [facility] Comment on above: Performed By: #### L [id number] ####[facility] ([facility])[address] [place] [address] Anion gap [Moles/Vol] 16 mmol/L Normal 7-20 [facility] Comment on above: Performed By: #### L [id number] ####[facility] ([facility])[address] [place] [address] AST [Catalytic activity/Vol] 2953 U/L High 13-39 [facility] Comment on above: Performed By: #### L [id number] ####[facility] ([facility])[address] [place] [address] Bilirubin [Mass/Vol] 1.6 mg/dL High 0.3-1.0 [facility] Comment on above: Performed By: #### L [id number] ####[facility] ([facility])[address] [place] [address] Calcium [Mass/Vol] 10.0 mg/dL Normal 8.6-10.3 [facility] Comment on above: Performed By: #### L [id number] ####[facility] ([facility])[address] [place] [address] Chloride [Moles/Vol] 103 mmol/L Normal 98-107 [facility] Comment on above: Performed By: #### L [id number] ####[facility] ([facility])[address] [place] [address] CO2 [Moles/Vol] 22 mmol/L Normal 21-31 [facility] Comment on above: Performed By: #### L [id number] ####[facility] ([facility])[address] [place] [address] Creatinine [Mass/Vol] 4.08 mg/dL High 0.70-1.30 [facility] Comment on above: Performed By: #### L [id number] ####[facility] ([facility])[address] [place] [address] GLOMERULAR FILTRATION RATE ML/MIN/1.73 SQ M.PREDICTED 13.9 mL/min/1.73m*2 Low >60.0 [facility] Comment on above: Result Comment: The [facility]???s estimated glomerular filtration rate (eGFR) will no [...] of individuals. Performed By: #### L [id number] ####[facility] ([facility])[address] [place] [address] Glucose [Mass/Vol] 94 mg/dL Normal 70-100 [facility] Comment on above: Performed By: #### L [id number] ####[facility] ([facility])[address] [place] [address] Potassium [Moles/Vol] 5.7 mmol/L High 3.5-5.1 [facility] Comment on above: Performed By: #### L [id number] ####[facility] ([facility])[address] [place] [address] Protein [Mass/Vol] 6.2 g/dL Normal 6.0-8.3 [facility] Comment on above: Performed By: #### L [id number] ####[facility] ([facility])[address] [place] [address] Sodium [Moles/Vol] 135 mmol/L Low 136-145 [facility] Comment on above: Performed By: #### L [id number] ####[facility] ([facility])[address] [place] [address] Urea nitrogen [Mass/Vol] 78 mg/dL High 7-25 [facility] Comment on above: Performed By: #### L [id number] ####[facility] ([facility])[address] [place] [address] UREA NITROGEN/CREATININE (MASS RATIO) IN SER/PLAS 19.1 [facility] Comment on above: Performed By: #### L [id number] ####[facility] ([facility])[address] [place] [address] CONSULTon 09-30-2024 CONSULT Normal [facility] CONSULT Normal [facility] CONSULT Normal [facility] CONSULT Normal [facility] FUNGAL CULTUREon 09-30-2024 FUNGAL SMEAR No yeast or fungal elements seen [facility] Comment on above: Performed By: #### L [id number] ####[facility] ([facility])[address] [place] [address] GLUCOSE, BODY FLUIDon 2024 GLUCOSE (MG/DL) IN BODY FLUID 95 mg/dL Normal [facility] Comment on above: Result Comment: The reference range and other method performance specifications have not been established for this test in fluids. the test result should be integrated into the clinical context for interpretation. Performed By: #### L [id number] ####[facility] ([facility])[address] [place] [address] HEPATITIS PANEL, ACUTEon HEPATITIS A VIRUS IGM AB PRESENCE IN SER/PLAS Non-Reactive Normal Nonreactive [facility] Comment on above: Performed By: #### L [id number] ####[facility] ([facility])[address] [place] [address] HEPATITIS B VIRUS CORE AB (PRESENCE) IN SER/PLAS BY IMM Non-Reactive Normal Nonreactive [facility] Comment on above: Performed By: #### L [id number] ####[facility] ([facility])[address] [place] [address] HEPATITIS B VIRUS SURFACE AG PRESENCE IN SERUM Non-Reactive Normal Nonreactive [facility] Comment on above: Performed By: #### L [id number] ####[facility] ([facility])[address] [place] [address] HEPATITIS C VIRUS AB PRESENCE IN SERUM Non-Reactive Normal Nonreactive [facility] Comment on above: Performed By: #### L [id number] ####[facility] ([facility])[address] [place] [address] HPon 09-30-2024 HP Normal [facility] LACTATE DEHYDROGENASEon 09-16 LACTATE DEHYDROGENASE (U/L) IN SER/PLAS BY LAC->PYR RXN 1762 U/L High 140-271 [facility] Comment on above: Performed By: #### L [id number] ####[facility] ([facility])[address] [place] [address] LACTATE DEHYDROGENASE, BODY FLUIDon 09-30-2024 LACTATE DEHYDROGENASE (U/L) IN BODY FLUID BY LAC->PYR 244 U/L Normal [facility] Comment on above: Result Comment: The reference range and other method performance specifications have not been established for this test in fluids. the test result should be integrated into the clinical context for interpretation. Performed By: #### L [id number] ####[facility] ([facility])[address] [place] [address] LACTIC ACID WITH 4 HOUR REFL EXon 09-30-2024 LACTATE (MMOL/L) IN SER/PLAS 2.1 mmol/L Normal 0.5-2.2 [facility] Comment on above: Performed By: #### L [id number] ####[facility] ([facility])[address] [place] [address] LACTATE (MMOL/L) IN SER/PLAS 2.5 mmol/L High 0.5-2.2 [facility] Comment on above: Performed By: #### L [id number] ####[facility] ([facility])[address] [place] [address] MAGNESIUMon 09-30-2024 Magnesium [Mass/Vol] 2.2 mg/dL Normal 1.9-2.7 [facility] Comment on above: Performed By: #### L [id number] ####[facility] ([facility])[address] [place] [address] MANUAL DIFFERENTIALon 2024 ACANTHOCYTES PRESENCE IN BLOOD BY LIGHT MICROSCOPY Slight Normal [facility] Comment on above: Performed By: #### L [id number] ####[facility] ([facility])[address] [place] [address] ANISOCYTOSIS PRESENCE IN BLOOD BY LIGHT MICROSCOPY Marked Normal [facility] Comment on above: Performed By: #### L [id number] ####[facility] ([facility])[address] [place] [address] BASOPHILS (10*3/UL) IN BLOOD BY CALCULATION 0.03 10*3/uL Normal 0.00-0.20 [facility] Comment on above: Performed By: #### L [id number] ####[facility] ([facility])[address] [place] [address] BASOPHILS/100 LEUKOCYTES IN BLOOD BY AUTOMATED COUNT 0.3 % Normal 0.0-1.0 [facility] Comment on above: Performed By: #### L [id number] ####[facility] ([facility])[address] [place] [address] HAMZAH CELLS PRESENCE IN BLOOD BY LIGHT MICROSCOPY Slight Normal [facility] Comment on above: Performed By: #### L [id number] ####[facility] ([facility])[address] [place] [address] ELLIPTOCYTES IN BLOOD BY LIGHT MICROSCOPY Slight Normal [facility] Comment on above: Performed By: #### L [id number] ####[facility] ([facility])[address] [place] [address] EOSINOPHILS (10*3/UL) IN BLOOD BY CALCULATION 0.00 10*3/uL Normal 0.00-0.50 [facility] Comment on above: Performed By: #### L [id number] ####[facility] ([facility])[address] [place] [address] EOSINOPHILS/100 LEUKOCYTES IN BLOOD BY AUTOMATED COUNT 0.0 % Normal 0.0-6.0 [facility] Comment on above: Performed By: #### L [id number] ####[facility] ([facility])[address] [place] [address] HYPOCHROMIA (PRESENCE) IN BLOOD BY LIGHT MICROSCOPY Slight Normal [facility] Comment on above: Performed By: #### L [id number] ####[facility] ([facility])[address] [place] [address] IMMATURE GRANULOCYTES (10*3/UL) IN BLOOD BY CALCULATION 0.09 10*3/uL Normal 0.00-0.20 [facility] Comment on above: Performed By: #### L [id number] ####[facility] ([facility])[address] [place] [address] IMMATURE GRANULOCYTES/100 LEUKOCYTES IN BLOOD BY AUTOMATED COUNT 0.9 % Normal 0.0-1.0 [facility] Comment on above: Performed By: #### L [id number] ####[facility] ([facility])[address] [place] [address] LYMPHOCYTES (10*3/UL) IN BLOOD BY CALCULATION 0.59 10*3/uL Low 1.20-4.00 [facility] Comment on above: Performed By: #### L [id number] ####[facility] ([facility])[address] [place] [address] LYMPHOCYTES/100 LEUKOCYTES IN BLOOD BY AUTOMATED COUNT 5.9 % Low 20.0-45.0 [facility] Comment on above: Performed By: #### L [id number] ####[facility] ([facility])[address] [place] [address] MACROCYTES (PRESENCE) IN BLOOD BY LIGHT MICROSCOPY Slight Normal [facility] Comment on above: Performed By: #### L [id number] ####[facility] ([facility] [place] [address] MONOCYTES (10*3/UL) IN BLOOD BY CALCUATION 0.64 10*3/uL Normal 0.10-1.00 [facility] Comment on above: Performed By: #### L [id number] ####[facility] ([facility])[address] [place] [address] MONOCYTES/100 LEUKOCYTES IN BLOOD BY AUTOMATED COUNT 6.4 % Normal 5.0-12.0 [facility] Comment on above: Performed By: #### L [id number] ####[facility] ([facility])[address] [place] [address] NEUTROPHILS (10*3/UL) IN BLOOD BY CALCULATION 8.7 10*3/uL High 1.6-7.6 [facility] Comment on above: Performed By: #### L [id number] ####[facility] ([facility])[address] [place] [address] NEUTROPHILS/100 LEUKOCYTES IN BLOOD BY AUTOMATED COUNT 86.5 % High 40.0-72.0 [facility] Comment on above: Performed By: #### L [id number] ####[facility] (BEAKER)[address] [place] [address] OVALOCYTES PRESENCE IN BLOOD BY LIGHT MICROSCOPY Slight Normal [facility] Comment on above: Performed By: #### L [id number] ####[facility] (BEAKER)[address] [place] [address] POIKILOCYTOSIS (PRESENCE) IN BLOOD BY LIGHT MICROSCOPY Marked Normal [facility] Comment on above: Performed By: #### L [id number] ####[facility] ([facility])[address] [place] [address] POLYCHROMASIA IN BLOOD BY LIGHT MICROSCOPY Slight Normal [facility] Comment on above: Performed By: #### L [id number] ####[facility] ([facility])[address] [place] [address] SCHISTOCYTES (PRESENCE) IN BLOOD BY LIGHT MICROSCOPY Moderate Normal [facility] Comment on above: Performed By: #### L [id number] ####[facility] ([facility])[address] [place] [address] NON-ASTRONAUTICAL ENGINEER CYTOLOGY - CELLULAR EXAMon 09-30-2024 LAB AP CASE REPORT Normal [facility] Comment on above: Result Comment: Non- gynecologic Cytology Case: [id number] Provider: Hari Cabrera MD Collected: 09/30/2024 1412Ordering Location: [facility] Received: 10/01/2024 0733 CarePathologist: PAVEL Levinepecimen: Peritoneal fluid Performed By: #### L [id number] ####[facility] ([facility])[address] [place] [address] LAB AP CLINICAL INFORMATION [facility] Comment on above: Result Comment: Post -Op DiagnosesNo Dx found. Performed By: #### L [id number] ####[facility] ([facility])[address] [place] [address] LAB AP GROSS DESCRIPTION 6 mL hazy, yellow fluid. Normal [facility] Comment on above: Performed By: #### L [id number] ####[facility] ([facility])[address] [place] [address] LAB AP REPORT FINAL DIAGNOSIS NARRATIVE [facility] Comment on above: Result Comment: A. P eritoneal fluid: - Negative for malignancy. Performed By: #### L [id number] ####[facility] ([facility])[address] [place] [address] PATHOLOGY REVIEWon PATHOLOGY REVIEW Reviewed. Normal [facility] Comment on above: Result Comment: Elec tronically signed by Leeann Deras MD on 10/01/24 at 2:05 PM. Performed By: #### L [id number] ####[facility] ([facility])[address] [place] [address] PHOSPHORUSon 09-30-2024 Magnesium [Mass/Vol] 5.1 mg/dL High 2.5-5.0 [facility] Comment on above: Performed By: #### L [id number] ####[facility] ([facility])[address] [place] [address] PROTEIN, BODY FLUIDon 2024 Protein (Body fld) [Mass/Vol] 3.4 g/dL Normal [facility] Comment on above: Result Comment: The reference range and other method performance specifications have not been established for this test in fluids. the test result should be integrated into the clinical context for interpretation. Performed By: #### L [id number] ####[facility] ([facility])[address] [place] [address] PROTEIN, TOTALon 09-30-2024 Protein [Mass/Vol] 6.1 g/dL Normal 6.0-8.3 [facility] Comment on above: Performed By: #### L [id number] ####[facility] ([facility])[address] [place] [address] PROTIME-INRon 09-30-2024 INR IN PPP BY COAGULATION ASSAY 4.67 High 0.90-1.10 [facility] Comment on above: Result Comment: ACCC P [...] CHEST 1995;[id number]. Performed By: #### L [id number] ####[facility] ([facility])[address] [place] [address] PROTHROMBIN TIME (PT) IN PPP BY COAGULATION ASSAY 42.4 Seconds High 12.3-14.8 [facility] Comment on above: Performed By: #### L [id number] ####[facility] ([facility])[address] [place] [address] VANCOMYCIN TIMEDon VANCOMYCIN IN SER/PLAS - TIMED 11.8 Low 20.0-40.0 [facility] Comment on above: Performed By: #### L [id number] ####[facility] ([facility])[address] [place] [address] VENOUS BLOOD GAS WITH IONIZE D CALCIUMon 09-30-2024 Base excess Calc (BldV) [Moles/Vol] -2.2000 mmol/L Normal [facility] Comment on above: Performed By: #### L [id number] ####[facility] RESPIRATORY [id number] [place] [address] [place] CALCIUM IONIZED (MMOL/L) IN BLOOD 1.28 mmol/L Normal 1.15-1.33 [facility] Comment on above: Performed By: #### L [id number] ####[facility] RESPIRATORY [id number] [place] [address] [place] CO2 (BldV) [Partial pressure] 41 mm[Hg] Normal 40-50 [facility] Comment on above: Performed By: #### L [id number] ####[facility] RESPIRATORY [id number] [place] [address] [facility] HCO3 (Bld) [Moles/Vol] 23.2 mmol/L Normal [facility] Comment on above: Performed By: #### L [id number] ####[facility] RESPIRATORY [id number] [place] [address] [facility] Oxygen (BldV) [Partial pressure] 35 mm[Hg] Normal 35-45 [facility] Comment on above: Performed By: #### L [id number] ####[facility] RESPIRATORY [id number] [place] [address] [facility] OXYGEN SATURATION (%) IN VENOUS BLOOD 51.1 % Invalid Interpretation Code 65.0-75.0 [facility] Comment on above: Performed By: #### L [id number] ####[facility] RESPIRATORY [id number] [place] [address] [facility] PH OF VENOUS BLOOD 7.36 Normal 7.31-7.41 [facility] Comment on above: Performed By: #### L [id number] ####[facility] RESPIRATORY [id number] [place] [address] [facility] APTTon 09-29-2024 ACTIVATED PARTIAL THROMBOPLASTIN TIME IN PPP BY COAGULATION ASSAY 38.4 Seconds High 25.0-35.0 [facility] Comment on above: Result Comment: Clin ical significance of the APTT is questionable in the presence of heparin. Performed By: #### L [id number] ####[facility] (BEAKER)[address] [place] [address] B-TYPE NATRIURETIC PEPTIDEon 09-29-2024 Natriuretic peptide B (Bld) [Mass/Vol] 1142 pg/mL High 0-100 [facility] Comment on above: Performed By: #### L [id number] ####[facility] (BEAKER)[address] [place] [address] BASIC METABOLIC PANELon 09-16 Anion gap [Moles/Vol] 20 mmol/L Normal 7-20 [facility] Comment on above: Performed By: #### L [id number] ####[facility] (BEAKER)[address] [place] [address] Calcium [Mass/Vol] 9.6 mg/dL Normal 8.6-10.3 [facility] Comment on above: Performed By: #### L [id number] ####[facility] (BEAKER)[address] [place] [address] Chloride [Moles/Vol] 103 mmol/L Normal 98-107 [facility] Comment on above: Performed By: #### L [id number] ####[facility] (BEAKER)[address] [place] [address] CO2 [Moles/Vol] 19 mmol/L Low 21-31 [facility] Comment on above: Performed By: #### L [id number] ####[facility] (BEAKER)[address] [place] [address] Creatinine [Mass/Vol] 4.12 mg/dL High 0.70-1.30 [facility] Comment on above: Performed By: #### L [id number] ####[facility] ([facility])[address] [place] [address] GLOMERULAR FILTRATION RATE ML/MIN/1.73 SQ M.PREDICTED 13.7 mL/min/1.73m*2 Low >60.0 [facility] Comment on above: Result Comment: The [facility]???s estimated glomerular filtration rate (eGFR) will no [...] of individuals. Performed By: #### L [id number] ####[facility] (BEAKER)[address] [place] [address] Glucose [Mass/Vol] 117 mg/dL High 70-100 [facility] Comment on above: Performed By: #### L [id number] ####[facility] ([facility])[address] [place] [address] Potassium [Moles/Vol] 6.2 mmol/L Critically high 3.5-5.1 [facility] Comment on above: Result Comment: M-LA EVIOUS CRITICAL RESULT Performed By: #### L [id number] ####[facility] ([facility])[address] [place] [address] Sodium [Moles/Vol] 136 mmol/L Normal 136-145 [facility] Comment on above: Performed By: #### L [id number] ####[facility] ([facility])[address] [place] [address] Urea nitrogen [Mass/Vol] 73 mg/dL High 7-25 [facility] Comment on above: Performed By: #### L [id number] ####[facility] ([facility])[address] [place] [address] UREA NITROGEN/CREATININE (MASS RATIO) IN SER/PLAS 17.7 Normal [facility] Comment on above: Performed By: #### L [id number] ####[facility] ([facility])[address] [place] [address] Anion gap [Moles/Vol] 23 mmol/L High 7-20 [facility] Comment on above: Performed By: #### L [id number] ####[facility] ([facility])[address] [place] [address] Calcium [Mass/Vol] 9.3 mg/dL Normal 8.6-10.3 [facility] Comment on above: Performed By: #### L [id number] ####[facility] ([facility])[address] [place] [address] Chloride [Moles/Vol] 102 mmol/L Normal 98-107 [facility] Comment on above: Performed By: #### L [id number] ####[facility] ([facility])[address] [place] [address] CO2 [Moles/Vol] 20 mmol/L Low 21-31 [facility] Comment on above: Performed By: #### L [id number] ####[facility] ([facility])[address] [place] [address] Creatinine [Mass/Vol] 4.18 mg/dL High 0.70-1.30 [facility] Comment on above: Performed By: #### L [id number] ####[facility] ([facility])[address] [place] [address] GLOMERULAR FILTRATION RATE ML/MIN/1.73 SQ M.PREDICTED 13.5 mL/min/1.73m*2 Low >60.0 [facility] Comment on above: Result Comment: The [facility]???s estimated glomerular filtration rate (eGFR) will no [...] of individuals. Performed By: #### L [id number] ####[facility] ([facility])[address] [place] [address] Glucose [Mass/Vol] 74 mg/dL Normal 70-100 [facility] Comment on above: Performed By: #### L [id number] ####[facility] ([facility])[address] [place] [address] Potassium [Moles/Vol] 6.1 mmol/L Critically high 3.5-5.1 [facility] Comment on above: Performed By: #### L [id number] ####[facility] ([facility])[address] [place] [address] Sodium [Moles/Vol] 139 mmol/L Normal 136-145 [facility] Comment on above: Performed By: #### L [id number] ####[facility] (BEAKER)[address] [place] [address] Urea nitrogen [Mass/Vol] 74 mg/dL High 7-25 [facility] Comment on above: Performed By: #### L [id number] ####[facility] (BEAKER)[address] [place] [address] UREA NITROGEN/CREATININE (MASS RATIO) IN SER/PLAS 17.7 Normal [facility] Comment on above: Performed By: #### L [id number] ####[facility] (BEAKER)[address] [place] [address] Anion gap [Moles/Vol] 25 mmol/L High 7-20 [facility] Comment on above: Performed By: #### L [id number] ####[facility] (BEAKER)[address] [place] [address] Calcium [Mass/Vol] 7.1 mg/dL Low 8.6-10.3 [facility] Comment on above: Performed By: #### L [id number] ####[facility] (BEAKER)[address] [place] [address] Chloride [Moles/Vol] 111 mmol/L High 98-107 [facility] Comment on above: Performed By: #### L [id number] ####[facility] (BEAKER)[address] [place] [address] CO2 [Moles/Vol] 10 mmol/L Invalid Interpretation Code [facility] Comment on above: Performed By: #### L [id number] ####[facility] (BEAKER)[address] [place] [address] Creatinine [Mass/Vol] 3.06 mg/dL High 0.70-1.30 [facility] Comment on above: Performed By: #### L [id number] ####[facility] (BEAKER)[address] [place] [address] GLOMERULAR FILTRATION RATE ML/MIN/1.73 SQ M.PREDICTED 19.6 mL/min/1.73m*2 Low >60.0 [facility] Comment on above: Result Comment: The [facility]???s estimated glomerular filtration rate (eGFR) will no [...] of individuals. Performed By: #### L [id number] ####[facility] (BEAKER)[address] [place] [address] Glucose [Mass/Vol] 41 mg/dL Invalid Interpretation Code 70-100 [facility] Comment on above: Performed By: #### L [id number] ####[facility] (BEAKER)[address] [place] [address] Potassium [Moles/Vol] 5.0 mmol/L Normal 3.5-5.1 [facility] Comment on above: Performed By: #### L [id number] ####[facility] (BEAKER)[address] [place] [address] Sodium [Moles/Vol] 141 mmol/L Normal 136-145 [facility] Comment on above: Performed By: #### L [id number] ####[facility] (BEAKER)[address] [place] [address] Urea nitrogen [Mass/Vol] 62 mg/dL High 7-25 [facility] Comment on above: Performed By: #### L [id number] ####[facility] (BEAKER)[address] [place] [address] UREA NITROGEN/CREATININE (MASS RATIO) IN SER/PLAS 20.3 Normal [facility] Comment on above: Performed By: #### L [id number] ####[facility] (BEAKER)[address] [place] [address] BLOOD CULTUREon 09-29-2024 Bacteria identified Cx Nom (Bld) No growth at 5 days Normal [facility] Comment on above: Order Comment: From a different site than #1. Performed By: #### L [id number] ####[facility] (BEAKER)[address] [place] [address] CBC WITH AUTO DIFFERENTIALon 09-29-2024 Erythrocyte distribution width (RBC) [Ratio] 23.3 % High 11.5-15.0 [facility] Comment on above: Performed By: #### L [id number] ####[facility] ([facility] [place] [address] ERYTHROCYTE MEAN CORPUSCULAR HEMOGLOBIN CONCENTRATION (G/DL) BY AUTOMATED 28.1 g/dL Low 32.0-35.0 [facility] Comment on above: Performed By: #### L [id number] ####[facility] ([facility])[address] [place] [address] Hematocrit (Bld) [Volume fraction] 45.2 % Normal 39.0-55.0 [facility] Comment on above: Performed By: #### L [id number] ####[facility] ([facility])[address] [place] [address] Hemoglobin (Bld) [Mass/Vol] 12.7 g/dL Low 13.0-17.0 [facility] Comment on above: Performed By: #### L [id number] ####[facility] (BEAKER)[address] [place] [address] MCH (RBC) [Entitic mass] 27.6 pg Normal 27.0-33.0 [facility] Comment on above: Performed By: #### L [id number] ####[facility] (BEAKER)[address] [place] [address] MCV (RBC) [Entitic vol] 98.3 fL High 82.0-98.0 [facility] Comment on above: Performed By: #### L [id number] ####[facility] (BEAKER)[address] [place] [address] NRBC (PER 100 WBCS) BY AUTOMATED COUNT 0.5 % High 0 [facility] Comment on above: Performed By: #### L [id number] ####[facility] ([facility])[address] [place] [address] PLATELETS (10*3/UL) IN BLOOD AUTOMATED COUNT 239 10*3/uL Normal 150-400 [facility] Comment on above: Performed By: #### L [id number] ####[facility] ([facility])[address] [place] [address] RBC (Bld) [#/Vol] 4.60 10*6/uL Normal 4.20-5.70 [facility] Comment on above: Performed By: #### L [id number] ####[facility] ([facility])[address] [place] [address] WBC (Bld) [#/Vol] 13.18 10*3/uL High 4.00-10.60 [facility] Comment on above: Performed By: #### L [id number] ####[facility] ([facility] [place] [address] CKon 09-29-2024 CREATINE KINASE (U/L) IN SER/PLAS 96.0 U/L Normal 30.0-223.0 [facility] Comment on above: Performed By: #### L [id number] ####[facility] ([facility])[address] [place] [address] CK TOTAL AND CKMBon 09-29-19 CREATINE KINASE (U/L) IN SER/PLAS 88.0 U/L Normal 30.0-223.0 [facility] Comment on above: Performed By: #### L [id number] ####[facility] ([facility])[address] [place] [address] CREATINE KINASE MB/CREATINE KINASE TOTAL BY CALCULATION 11.4 High 0.0-1.9 [facility] Comment on above: Performed By: #### L [id number] ####[facility] ([facility] [place] [address] CREATINE KINASE-MB (NG/ML) IN SER/PLAS 10.0 ng/mL High 0.0-5.0 [facility] Comment on above: Performed By: #### L [id number] ####[facility] ([facility])[address] [place] [address] COMPREHENSIVE METABOLIC PANE Aldo 09-29-2024 Albumin [Mass/Vol] 3.4 g/dL Low 3.5-5.7 [facility] Comment on above: Performed By: #### L [id number] ####[facility] ([facility])[address] [place] [address] ALP [Catalytic activity/Vol] 96 U/L Normal 34-104 [facility] Comment on above: Performed By: #### L [id number] ####[facility] ([facility])[address] [place] [address] ALT [Catalytic activity/Vol] 492 U/L High 7-52 [facility] Comment on above: Performed By: #### L [id number] ####[facility] ([facility])[address] [place] [address] Anion gap [Moles/Vol] 32 mmol/L High 7-20 [facility] Comment on above: Performed By: #### L [id number] ####[facility] ([facility])[address] [place] [address] AST [Catalytic activity/Vol] 767 U/L High 13-39 [facility] Comment on above: Performed By: #### L [id number] ####[facility] ([facility])[address] [place] [address] Bilirubin [Mass/Vol] 2.2 mg/dL High 0.3-1.0 [facility] Comment on above: Performed By: #### L [id number] ####[facility] ([facility])[address] [place] [address] Calcium [Mass/Vol] 9.6 mg/dL Normal 8.6-10.3 [facility] Comment on above: Performed By: #### L [id number] ####[facility] ([facility])[address] [place] [address] Chloride [Moles/Vol] 100 mmol/L Normal 98-107 [facility] Comment on above: Performed By: #### L [id number] ####[facility] ([facility])[address] [place] [address] CO2 [Moles/Vol] 10 mmol/L Invalid Interpretation Code 21-31 [facility] Comment on above: Performed By: #### L [id number] ####[facility] ([facility])[address] [place] [address] Creatinine [Mass/Vol] 4.06 mg/dL High 0.70-1.30 [facility] Comment on above: Performed By: #### L [id number] ####[facility] ([facility])[address] [place] [address] GLOMERULAR FILTRATION RATE ML/MIN/1.73 SQ M.PREDICTED 14.0 mL/min/1.73m*2 Low >60.0 [facility] Comment on above: Result Comment: The [facility]???s estimated glomerular filtration rate (eGFR) will no [...] of individuals. Performed By: #### L [id number] ####[facility] ([facility])[address] [place] [address] Glucose [Mass/Vol] 59 mg/dL Low 70-100 [facility] Comment on above: Performed By: #### L [id number] ####[facility] ([facility] [place] [address] Potassium [Moles/Vol] 6.9 mmol/L Critically high 3.5-5.1 [facility] Comment on above: Performed By: #### L [id number] ####[facility] ([facility])[address] [facility] [address] Protein [Mass/Vol] 6.8 g/dL Normal 6.0-8.3 [facility] Comment on above: Performed By: #### L [id number] ####[facility] ([facility])[address] [facility] [place] [address] Sodium [Moles/Vol] 135 mmol/L Low 136-145 [facility] Comment on above: Performed By: #### L [id number] ####[facility] ([facility])[address] [place] [address] Urea nitrogen [Mass/Vol] 74 mg/dL High 7-25 [facility] Comment on above: Performed By: #### L [id number] ####[facility] ([facility])[address] [place] [address] UREA NITROGEN/CREATININE (MASS RATIO) IN SER/PLAS 18.2 Normal [facility] Comment on above: Performed By: #### L [id number] ####[facility] ([facility])[address] [place] [address] CT ABDOMEN PELVIS WO IV CONT RASTon 09-29-2024 CT ABDOMEN PELVIS WO IV CONTRAST Normal [facility] CT CHEST WO IV CONTRASTon CT CHEST WO IV CONTRAST Invalid Interpretation Code [facility] D-DIMER, QUANTITATIVEon 09-16 FIBRIN D-DIMER (UG/L FEU) IN PLATELET POOR PLASMA 18.94 mcg/mL FEU High 0.27-0.49 [facility] Comment on above: Order Comment: D-Dim er values of less than 0.50 ug/ml (FEU) are considered to be a negative predictor of thrombosis. However, the D-Dimer result should be used in conjunction with pretest probability and should not be used alone to diagnose a thrombotic event. Performed By: #### L [id number] ####[facility] ([facility] [place] [address] EDPROVon 09-29-2024 EDPROV Invalid Interpretation Code [facility] EDPROV Normal [facility] FIBRIN SPLIT PRODUCTSon 09-16 FDP >20ug/mL Critically abnormal <5ug/mL, 5ug/mL, 10ug/mL [facility] Comment on above: Performed By: #### L [id number] ####[facility] ([facility])[address] [place] [address] FIBRINOGENon 09-29-2024 Magnesium [Mass/Vol] 272 mg/dL Normal 150-425 [facility] Comment on above: Performed By: #### L [id number] ####[facility] ([facility])[address] [place] [address] HPon 09-29-2024 HP Normal [facility] LACTIC ACID WITH 4 HOUR REFL EXon 09-29-2024 LACTATE (MMOL/L) IN SER/PLAS 8.1 mmol/L Critically high 0.5-2.2 [facility] Comment on above: Result Comment: Prev ious result verified on 09/29/2024 160 on specimen/case [facility]-[id number] called with component Lactate blood venous for procedure Lactic acid with 4 hour reflex with value 12.5 mmol/L. Performed By: #### L [id number] ####[facility] ([facility])[address] [place] [address] LACTATE (MMOL/L) IN SER/PLAS 10.7 mmol/L Critically high 0.5-2.2 [facility] Comment on above: Result Comment: Prev ious result verified on 09/29/2024 160 on specimen/case [facility]-[id number] called with component Lactate blood venous for procedure Lactic acid with 4 hour reflex with value 12.5 mmol/L. Performed By: #### L [id number] ####[facility] ([facility])[address] [place] [address] LACTATE (MMOL/L) IN SER/PLAS 12.5 mmol/L Critically high 0.5-2.2 [facility] Comment on above: Result Comment: Prev ious result verified on 09/29/2024 1114 on specimen/case [id number] called with component Lactate blood venous for procedure Lactic acid with 4 hour reflex with value 12.5 mmol/L. Performed By: #### L [id number] ####[facility] ([facility])[address] [place] [address] LACTATE (MMOL/L) IN SER/PLAS 12.5 mmol/L Critically high 0.5-2.2 [facility] Comment on above: Performed By: #### L [id number] ####[facility] ([facility])[address] [place] [address] MAGNESIUMon 09-29-2024 Magnesium [Mass/Vol] 1.9 mg/dL Normal 1.9-2.7 [facility] Comment on above: Performed By: #### L [id number] ####[facility] ([facility])[address] [facility] [address] MANUAL DIFFERENTIALon 2024 ANISOCYTOSIS PRESENCE IN BLOOD BY LIGHT MICROSCOPY Moderate Normal [facility] Comment on above: Performed By: #### L [id number] ####[facility] ([facility])[address] [place] [address] BASOPHILS (10*3/UL) IN BLOOD BY CALCULATION 0.05 10*3/uL Normal 0.00-0.20 [facility] Comment on above: Performed By: #### L [id number] ####[facility] ([facility])[address] [place] [address] BASOPHILS/100 LEUKOCYTES IN BLOOD BY AUTOMATED COUNT 0.4 % Normal 0.0-1.0 [facility] Comment on above: Performed By: #### L [id number] ####[facility] ([facility])[address] [place] [address] HAMZAH CELLS PRESENCE IN BLOOD BY LIGHT MICROSCOPY Slight Normal [facility] Comment on above: Performed By: #### L [id number] ####[facility] ([facility])[address] [place] [address] EOSINOPHILS (10*3/UL) IN BLOOD BY CALCULATION 0.07 10*3/uL Normal 0.00-0.50 [facility] Comment on above: Performed By: #### L [id number] ####[facility] ([facility])[address] [place] [address] EOSINOPHILS/100 LEUKOCYTES IN BLOOD BY AUTOMATED COUNT 0.5 % Normal 0.0-6.0 [facility] Comment on above: Performed By: #### L [id number] ####[facility] ([facility])[address] [place] [address] IMMATURE GRANULOCYTES (10*3/UL) IN BLOOD BY CALCULATION 0.22 10*3/uL High 0.00-0.20 [facility] Comment on above: Performed By: #### L [id number] ####[facility] ([facility])[address] [place] [address] IMMATURE GRANULOCYTES/100 LEUKOCYTES IN BLOOD BY AUTOMATED COUNT 1.7 % High 0.0-1.0 [facility] Comment on above: Performed By: #### L [id number] ####[facility] ([facility])[address] [place] [address] LYMPHOCYTES (10*3/UL) IN BLOOD BY CALCULATION 0.36 10*3/uL Low 1.20-4.00 [facility] Comment on above: Performed By: #### L [id number] ####[facility] ([facility])[address] [place] [address] LYMPHOCYTES/100 LEUKOCYTES IN BLOOD BY AUTOMATED COUNT 2.7 % Low 20.0-45.0 [facility] Comment on above: Performed By: #### L [id number] ####[facility] ([facility])[address] [place] [address] MONOCYTES (10*3/UL) IN BLOOD BY CALCUATION 1.27 10*3/uL High 0.10-1.00 [facility] Comment on above: Performed By: #### L [id number] ####[facility] ([facility])[address] [place] [address] MONOCYTES/100 LEUKOCYTES IN BLOOD BY AUTOMATED COUNT 9.6 % Normal 5.0-12.0 [facility] Comment on above: Performed By: #### L [id number] ####[facility] ([facility])[address] [place] [address] NEUTROPHILS (10*3/UL) IN BLOOD BY CALCULATION 11.2 10*3/uL High 1.6-7.6 [facility] Comment on above: Performed By: #### L [id number] ####[facility] ([facility])[address] [place] [address] NEUTROPHILS/100 LEUKOCYTES IN BLOOD BY AUTOMATED COUNT 85.1 % High 40.0-72.0 [facility] Comment on above: Performed By: #### L [id number] ####[facility] ([facility])[address] [place] [address] POIKILOCYTOSIS (PRESENCE) IN BLOOD BY LIGHT MICROSCOPY Moderate Normal [facility] Comment on above: Performed By: #### L [id number] ####[facility] ([facility])[address] [place] [address] POLYCHROMASIA IN BLOOD BY LIGHT MICROSCOPY Slight Normal [facility] Comment on above: Performed By: #### L [id number] ####[facility] ([facility])[address] [place] [address] SCHISTOCYTES (PRESENCE) IN BLOOD BY LIGHT MICROSCOPY Slight Normal [facility] Comment on above: Performed By: #### L [id number] ####[facility] ([facility])[address] [place] [address] PATHOLOGY REVIEWon PATHOLOGY REVIEW Reviewed. Normal [facility] Comment on above: Result Comment: Elec tronically signed by Leeann Deras MD on 09/30/24 at 2:55 PM. Performed By: #### L [id number] ####[facility] ([facility])[address] [place] [address] PHOSPHORUSon 09-29-2024 Magnesium [Mass/Vol] 4.9 mg/dL Normal 2.5-5.0 [facility] Comment on above: Performed By: #### L [id number] ####[facility] ([facility])[address] [place] [address] PLATELET COUNTon 09-29-2024 PLATELETS (10*3/UL) IN BLOOD AUTOMATED COUNT 229 10*3/uL Normal 150-400 [facility] Comment on above: Performed By: #### L [id number] ####[facility] ([facility])[address] [place] [address] POCT GLUCOSE METER UNSOLICIT ED RESULTSon 09-29-2024 Glucose [Mass/Vol] 255 mg/dL High 70-105 [facility] Comment on above: Order Comment: Waive d Testing in the ED is performed under the ED CLIA certificate #[id number]. Result Comment: kareen nickersonKylah Performed By: #### L [id number] ####[facility] ([facility])[address] [place] [address] Glucose [Mass/Vol] 75 mg/dL Normal 70-105 [facility] Comment on above: Order Comment: Waive d Testing in the ED is performed under the ED CLIA certificate #[id number]. Result Comment: tomjenna nickersonKylah Performed By: #### L [id number] ####[facility] ([facility])[address] [place] [address] PROCALCITONIN TESTon 025 PROCALCITONIN IN BLOOD 0.20 ng/mL High 0.00-0.10 [facility] Comment on above: Result Comment: Susp ected [...] and initial PCT<0.5ng/mL Performed By: #### L [id number] ####[facility] ([facility])[address] [place] [address] PROTIME-INRon 09-29-2024 INR IN PPP BY COAGULATION ASSAY 3.94 High 0.90-1.10 [facility] Comment on above: Result Comment: ACCC P [...] CHEST 1995;108:231S-246S. Performed By: #### L [id number] ####[facility] ([facility])[address] [place] [address] PROTHROMBIN TIME (PT) IN PPP BY COAGULATION ASSAY 37.3 Seconds High 12.3-14.8 [facility] Comment on above: Performed By: #### L [id number] ####[facility] ([facility])[address] [place] [address] TROPONIN Ion 09-29-2024 Troponin I.cardiac [Mass/Vol] 0.37 ng/mL Critically high 0.00-0.04 [facility] Comment on above: Result Comment: M-LA EVIOUS CRITICAL RESULT Performed By: #### L [id number] ####[facility] ([facility])[address] [place] [address] Troponin I.cardiac [Mass/Vol] 0.39 ng/mL Critically high 0.00-0.04 [facility] Comment on above: Performed By: #### L [id number] ####[facility] ([facility])[address] [place] [address] VENOUS BLOOD GAS WITH IONIZE D CALCIUMon 09-29-2024 Base excess Calc (BldV) [Moles/Vol] -9.9000 mmol/L Normal [facility] Comment on above: Performed By: #### L [id number] ####[facility] RESPIRATORY [id number] [place] [address] [place] CALCIUM IONIZED (MMOL/L) IN BLOOD 1.21 mmol/L Normal 1.15-1.33 [facility] Comment on above: Performed By: #### L [id number] ####[facility] RESPIRATORY [id number] [place] [address] [place] CO2 (BldV) [Partial pressure] 41 mm[Hg] Normal 40-50 [facility] Comment on above: Performed By: #### L [id number] ####[facility] RESPIRATORY [id number] [place] [address] [place] HCO3 (Bld) [Moles/Vol] 17.2 mmol/L Normal [facility] Comment on above: Performed By: #### L [id number] ####[facility] RESPIRATORY [id number] [place] [address] [place] Oxygen (BldV) [Partial pressure] 24 mm[Hg] Invalid Interpretation Code 35-45 [facility] Comment on above: Performed By: #### L [id number] ####[facility] RESPIRATORY [id number] [place] [address] [facility] OXYGEN SATURATION (%) IN VENOUS BLOOD 24.1 % Invalid Interpretation Code 65.0-75.0 [facility] Comment on above: Performed By: #### L [id number] ####[facility] RESPIRATORY [id number] [place] [address] [facility] PH OF VENOUS BLOOD 7.23 Low 7.31-7.41 [facility] Comment on above: Performed By: #### L [id number] ####[facility] RESPIRATORY [id number] [place] [address] [facility] Basic metabolic 2000 panelon 09-25-2024 Anion gap [Moles/Vol] 14 mmol/L Normal 8-15 [facility] Comment on above: Order Comment: Speci men Type: BLOOD SPECIMENOrdering Facility: [facility] Address: [address] [place] [address] Performed By: #### 2 4321-2 ####[facility] LABCLIA [id number] [place] [address] [place] Calcium [Mass/Vol] 9.0 mg/dL Normal 8.5-10.2 [facility] Comment on above: Order Comment: Speci men Type: BLOOD SPECIMENOrdering Facility: [facility] Address: [address] [place] [address] Performed By: #### 2 4321-2 ####[facility] LABCLIA [id number] [place] [address] [place] Chloride [Moles/Vol] 101 mmol/L Normal 98-107 [facility] Comment on above: Order Comment: Speci men Type: BLOOD SPECIMENOrdering Facility: [facility] Address: [address] [place] [address] Performed By: #### 2 4321-2 ####[facility] LABCLIA [id number] [id number] [address] [place] CO2 [Moles/Vol] 25 mmol/L Normal 22-30 [facility] Comment on above: Order Comment: Speci men Type: BLOOD SPECIMENOrdering Facility: [facility] Address: [address] [place] [address] Performed By: #### 2 4321-2 ####[facility] LABCLIA [id number] [facility] [place] [address] [place] Creatinine [Mass/Vol] 3.21 mg/dL High 0.73-1.22 [facility] Comment on above: Order Comment: Speci men Type: BLOOD SPECIMENOrdering Facility: [facility] Address: [address] [place] [address] Performed By: #### 2 4321-2 ####[facility] LABCLIA [id number] [address] [place] Creatinine and Glomerular filtration rate.predicted panel (S/P/Bld) 19 mL/min/1.73m??? Low >=60 [facility] Comment on above: Order Comment: Speci men Type: BLOOD SPECIMENOrdering Facility: [facility] Address: [address] [place] [address] Result Comment: Etta mated Glomerular Filtration Rate [...] actual GFR. Performed By: #### 2 4321-2 ####[facility] LABCLIA [id number] [place] [address] [place] Glucose [Mass/Vol] 103 mg/dL High 74-99 [facility] Comment on above: Order Comment: Speci men Type: BLOOD SPECIMENOrdering Facility: [facility] Address: [address] [place] [address] Result Comment: The [place] [employer] (ADA) provides guidance for cutoff [...] Standards of Medical Care in Diabetes 2016, [place] [employer]. Diabetes Care. 2016.39(Suppl 1). Performed By: #### 2 4321-2 ####[facility] LABCLIA [id number] [place] [address] [place] Potassium [Moles/Vol] 3.8 mmol/L Normal 3.7-5.1 [facility] Comment on above: Order Comment: Speci men Type: BLOOD SPECIMENOrdering Facility: [facility] Address: [address] [place] [address] Performed By: #### 2 4321-2 ####[facility] LABIA [id number] [place] [address] [place] Sodium [Moles/Vol] 140 mmol/L Normal 136-144 [facility] Comment on above: Order Comment: Speci men Type: BLOOD SPECIMENOrdering Facility: [facility] Address: [address] [place] [address] Performed By: #### 2 4321-2 ####[facility] LABCLIA [id number] [place] [address] [place] Urea nitrogen [Mass/Vol] 67 mg/dL High 9-24 [facility] Comment on above: Order Comment: Speci men Type: BLOOD SPECIMENOrdering Facility: [facility] Address: [address] [place] [address] Performed By: #### 2 4321-2 ####[facility] LABCLIA [id number] [place] [address] [place] CASE MANAGEMon 09-25-2024 CASE MANAGEM Normal [facility] CBC panel Auto (Bld)on 09-25 Erythrocyte distribution width (RBC) [Ratio] 21.0 % High 11.5-15.0 [facility] Comment on above: Order Comment: Speci men Type: BLOOD SPECIMENOrdering Facility: [facility] Address: [address] [place] [address] Performed By: #### 5 8410-2 ####[facility] LABIA [id number] [place] [address] [place] Hematocrit (Bld) [Volume fraction] 32.2 % Low 39.0-51.0 [facility] Comment on above: Order Comment: Speci men Type: BLOOD SPECIMENOrdering Facility: [facility] Address: [address] [place] [address] Performed By: #### 5 8410-2 ####[facility] LABIA [id number] [place] [address] [place] Hemoglobin (Bld) [Mass/Vol] 10.0 g/dL Low 13.0-17.0 [facility] Comment on above: Order Comment: Speci men Type: BLOOD SPECIMENOrdering Facility: [facility] Address: [address] [place] [address] Performed By: #### 5 8410-2 ####[facility] LABCLIA [id number] [place] [address] [place] MCH (RBC) [Entitic mass] 27.5 pg Normal 26.0-34.0 [facility] Comment on above: Order Comment: Speci men Type: BLOOD SPECIMENOrdering Facility: [facility] Address: [address] [place] [address] Performed By: #### 5 8410-2 ####[facility] LABIA [id number] [place] [address] [place] MCHC (RBC) [Mass/Vol] 31.1 g/dL Normal 30.5-36.0 [facility] Comment on above: Order Comment: Speci men Type: BLOOD SPECIMENOrdering Facility: [facility] Address: [address] [place] [address] Performed By: #### 5 8410-2 ####[facility] LABCLIA [id number] [place] [address] [place] MCV (RBC) [Entitic vol] 88.5 fL Normal 80.0-100.0 [facility] Comment on above: Order Comment: Speci men Type: BLOOD SPECIMENOrdering Facility: [facility] Address: [address] [place] [address] Performed By: #### 5 8410-2 ####[facility] LABCLIA [id number] [place] [address] [place] Nucleated RBC (Bld) [#/Vol] 0.06 10*3/uL High <0.01 [facility] Comment on above: Order Comment: Speci men Type: BLOOD SPECIMENOrdering Facility: [facility] Address: [address] [place] [address] Performed By: #### 5 8410-2 ####[facility] LABIA [id number] [place] [address] [place] Platelet mean volume (Bld) [Entitic vol] 10.0 fL Normal 9.0-12.7 [facility] Comment on above: Order Comment: Speci men Type: BLOOD SPECIMENOrdering Facility: [facility] Address: [address] [place] [address] Performed By: #### 5 8410-2 ####[facility] LABCLIA [id number] [place] [address] [place] Platelets (Bld) [#/Vol] 226 10*3/uL Normal 150-400 [facility] Comment on above: Order Comment: Speci men Type: BLOOD SPECIMENOrdering Facility: [facility] Address: [address] [place] [address] Performed By: #### 5 8410-2 ####[facility] LABCLIA [id number] [place] [address] [place] RBC (Bld) [#/Vol] 3.64 10*6/uL Low 4.20-6.00 [facility] Comment on above: Order Comment: Speci men Type: BLOOD SPECIMENOrdering Facility: [facility] Address: [address] [place] [address] Performed By: #### 5 8410-2 ####[facility] LABCLIA [id number] [place] [address] [place] WBC (Bld) [#/Vol] 4.34 10*3/uL Normal 3.70-11.00 [facility] Comment on above: Order Comment: Speci men Type: BLOOD SPECIMENOrdering Facility: [facility] Address: [address] [place] [address] Performed By: #### 5 8410-2 ####[facility] LABCLIA [id number] [place] [address] [place] CNDSon 09-25-2024 CNDS Normal [facility] NURSING PROGon 09-25-2024 NURSING PROG Normal [facility] NUTRITIONon 09-25-2024 NUTRITION Normal [facility] PT EDon 09-25-2024 PT ED Normal [facility] PT ED Normal [facility] THERAPY NTon 09-25-2024 THERAPY NT Normal [facility] Basic metabolic 2000 panelon 09-24-2024 Anion gap [Moles/Vol] 14 mmol/L Normal 8-15 [facility] Comment on above: Order Comment: Speci men Type: BLOOD SPECIMENOrdering Facility: [facility] Address: [address] [place] [address] Performed By: #### 2 4321-2 ####[facility] LABCLIA [id number] [place] [address] [place] Calcium [Mass/Vol] 9.1 mg/dL Normal 8.5-10.2 [facility] Comment on above: Order Comment: Speci men Type: BLOOD SPECIMENOrdering Facility: [facility] Address: [address] [place] [address] Performed By: #### 2 4321-2 ####[facility] LABCLIA [id number] [place] [address] [place] Chloride [Moles/Vol] 100 mmol/L Normal 98-107 [facility] Comment on above: Order Comment: Speci men Type: BLOOD SPECIMENOrdering Facility: [facility] Address: [address] [place] [address] Performed By: #### 2 4321-2 ####[facility] LABCLIA [id number] [place] [address] [place] CO2 [Moles/Vol] 27 mmol/L Normal 22-30 [facility] Comment on above: Order Comment: Speci men Type: BLOOD SPECIMENOrdering Facility: [facility] Address: [address] [place] [address] Performed By: #### 2 4321-2 ####[facility] LABIA [id number] [place] [address] [place] Creatinine [Mass/Vol] 3.31 mg/dL High 0.73-1.22 [facility] Comment on above: Order Comment: Speci men Type: BLOOD SPECIMENOrdering Facility: [facility] Address: [address] [place], [place] [address] Performed By: #### 2 4321-2 ####[facility] LABCLIA [id number] [place] [address] [place] Creatinine and Glomerular filtration rate.predicted panel (S/P/Bld) 18 mL/min/1.73m??? Low >=60 [facility] Comment on above: Order Comment: Dylan olvera Type: BLOOD SPECIMENOrdering Facility: [facility] Address: [address] [place] [address] Result Comment: Etta mated Glomerular Filtration Rate [...] actual GFR. Performed By: #### 2 4321-2 ####[facility] LABIA [id number] [place] [address] [place] Glucose [Mass/Vol] 82 mg/dL Normal 74-99 [facility] Comment on above: Order Comment: Dylan olvera Type: BLOOD SPECIMENOrdering Facility: [facility] Address: [address] [place] [address] Result Comment: The [place] [employer] (ADA) provides guidance for cutoff [...] Standards of Medical Care in Diabetes 2016, [place] [employer]. Diabetes Care. 2016.39(Suppl 1). Performed By: #### 2 4321-2 ####[facility] LABIA [id number] [place] [address] [place] Potassium [Moles/Vol] 3.6 mmol/L Low 3.7-5.1 [facility] Comment on above: Order Comment: Dylan olvera Type: BLOOD SPECIMENOrdering Facility: [facility] Address: [address] [place] [address] Performed By: #### 2 4321-2 ####[facility] LABCLIA [id number] [place] [id number] [place] Sodium [Moles/Vol] 141 mmol/L Normal 136-144 [facility] Comment on above: Order Comment: Speci men Type: BLOOD SPECIMENOrdering Facility: [facility] Address: [address] [place] [address] Performed By: #### 2 4321-2 ####[facility] LABCLIA [id number] [place] [address] [place] Urea nitrogen [Mass/Vol] 64 mg/dL High 9-24 [facility] Comment on above: Order Comment: Speci men Type: BLOOD SPECIMENOrdering Facility: [facility] Address: [address] [place] [address] Performed By: #### 2 4321-2 ####[facility] LABCLIA [id number] [place] [id number] [place] CASE MANAGEMon 09-24-2024 CASE MANAGEM Normal [facility] CBC panel Auto (Bld)on 09-24 Erythrocyte distribution width (RBC) [Ratio] 20.6 % High 11.5-15.0 [facility] Comment on above: Order Comment: Speci men Type: BLOOD SPECIMENOrdering Facility: [facility] Address: [address] [place] [address] Performed By: #### 5 8410-2 ####[facility] LABCLIA [id number] [place] [id number] [place] Hematocrit (Bld) [Volume fraction] 33.2 % Low 39.0-51.0 [facility] Comment on above: Order Comment: Speci men Type: BLOOD SPECIMENOrdering Facility: [facility] Address: [address] [place] [address] Performed By: #### 5 8410-2 ####[facility] LABCLIA [id number] [place] [address] [place] Hemoglobin (Bld) [Mass/Vol] 10.1 g/dL Low 13.0-17.0 [facility] Comment on above: Order Comment: Speci men Type: BLOOD SPECIMENOrdering Facility: [facility] Address: [address] [place] [address] Performed By: #### 5 8410-2 ####[facility] LABIA [id number] [place] [address] [place] MCH (RBC) [Entitic mass] 27.2 pg Normal 26.0-34.0 [facility] Comment on above: Order Comment: Speci men Type: BLOOD SPECIMENOrdering Facility: [facility] Address: [address] [place] [place] [address] Performed By: #### 5 8410-2 ####[facility] [id number] [address] [place] MCHC (RBC) [Mass/Vol] 30.4 g/dL Low 30.5-36.0 [facility] Comment on above: Order Comment: Speci men Type: BLOOD SPECIMENOrdering Facility: [facility] Address: [address] [place] [address] Performed By: #### 5 8410-2 ####[facility] [id number] [place] [address] [place] MCV (RBC) [Entitic vol] 89.2 fL Normal 80.0-100.0 [facility] Comment on above: Order Comment: Speci men Type: BLOOD SPECIMENOrdering Facility: [facility] Address: [address] [place] [address] Performed By: #### 5 8410-2 ####[facility] LAB[facility] [id number] [place] [address] [place] Nucleated RBC (Bld) [#/Vol] 0.05 10*3/uL High <0.01 [facility] Comment on above: Order Comment: Speci men Type: BLOOD SPECIMENOrdering Facility: [facility] Address: [address] [place] [address] Performed By: #### 5 8410-2 ####[facility] LAB[facility] [id number] [place] [address] [place] Platelet mean volume (Bld) [Entitic vol] 10.1 fL Normal 9.0-12.7 [facility] Comment on above: Order Comment: Speci men Type: BLOOD SPECIMENOrdering Facility: [facility] Address: [address] [place] [address] Performed By: #### 5 8410-2 ####[facility] LAB[facility] [id number] [place] [address] [place] Platelets (Bld) [#/Vol] 229 10*3/uL Normal 150-400 [facility] Comment on above: Order Comment: Speci men Type: BLOOD SPECIMENOrdering Facility: [facility] Address: [address] [place] [address] Performed By: #### 5 8410-2 ####[facility] LAB[facility] [id number] [place] [address] [place] RBC (Bld) [#/Vol] 3.72 10*6/uL Low 4.20-6.00 [facility] Comment on above: Order Comment: Speci men Type: BLOOD SPECIMENOrdering Facility: [facility] Address: [address] [place] [address] Performed By: #### 5 8410-2 ####[facility] [id number] [place] [address] [place] WBC (Bld) [#/Vol] 4.45 10*3/uL Normal 3.70-11.00 [facility] Comment on above: Order Comment: Speci men Type: BLOOD SPECIMENOrdering Facility: [facility] Address: [address] [place] [address] Performed By: #### 5 8410-2 ####[facility] [id number] [place] [address] [place] CONSULT PROGon 09-24-2024 CONSULT PROG Normal [facility] THERAPY NTon 09-24-2024 THERAPY NT Normal [facility] THERAPY NT Normal [facility] Basic metabolic 2000 panelon 09-23-2024 Anion gap [Moles/Vol] 15 mmol/L Normal 8-15 [facility] Comment on above: Order Comment: Speci men Type: BLOOD SPECIMENOrdering Facility: [facility] Address: [address] [place] [address] Performed By: #### 2 4321-2 ####[facility] [id number] [place] [address] [place] Calcium [Mass/Vol] 9.2 mg/dL Normal 8.5-10.2 [facility] Comment on above: Order Comment: Speci men Type: BLOOD SPECIMENOrdering Facility: [facility] Address: [address] [place] [address] Performed By: #### 2 4321-2 ####[facility] [id number] [place] [address] [place] Chloride [Moles/Vol] 96 mmol/L Low 98-107 [facility] Comment on above: Order Comment: Speci men Type: BLOOD SPECIMENOrdering Facility: [facility] Address: [address] [place] [address] Performed By: #### 2 4321-2 ####[facility] [id number] [place] [address] [place] CO2 [Moles/Vol] 27 mmol/L Normal 22-30 [facility] Comment on above: Order Comment: Speci men Type: BLOOD SPECIMENOrdering Facility: [facility] Address: [address] [place] [address] Performed By: #### 2 4321-2 ####[facility] [id number] [place] [address] [place] Creatinine [Mass/Vol] 3.64 mg/dL High 0.73-1.22 [facility] Comment on above: Order Comment: Speci men Type: BLOOD SPECIMENOrdering Facility: [facility] Address: [address] [place] [address] Performed By: #### 2 4321-2 ####[facility] LABIA [id number] [place] [address] [place] Creatinine and Glomerular filtration rate.predicted panel (S/P/Bld) 16 mL/min/1.73m??? Low >=60 [facility] Comment on above: Order Comment: Speci men Type: BLOOD SPECIMENOrdering Facility: [facility] Address: [address] [place] [address] Result Comment: Etta mated Glomerular Filtration Rate [...] actual GFR. Performed By: #### 2 4321-2 ####[facility] LABIA [id number] [place] [address] [place] Glucose [Mass/Vol] 124 mg/dL High 74-99 [facility] Comment on above: Order Comment: Speci men Type: BLOOD SPECIMENOrdering Facility: [facility] Address: [address] [place] [address] Result Comment: The [place] Diabetes Association (ADA) provides guidance for cutoff [...] Standards of Medical Care in Diabetes 2016, [place] [employer]. Diabetes Care. 2016.39(Suppl 1). Performed By: #### 2 4321-2 ####[facility] [id number] [place] [address] [place] Potassium [Moles/Vol] 3.3 mmol/L Low 3.7-5.1 [facility] Comment on above: Order Comment: Speci men Type: BLOOD SPECIMENOrdering Facility: [facility] Address: [address] [place] [address] Performed By: #### 2 4321-2 ####[facility] [id number] [place] [address] [place] Sodium [Moles/Vol] 138 mmol/L Normal 136-144 [facility] Comment on above: Order Comment: Rozi men Type: BLOOD SPECIMENOrdering Facility: [facility] Address: [address] [place] [address] Performed By: #### 2 4321-2 ####[facility]CL[facility] [id number] [place] [address] [place] Urea nitrogen [Mass/Vol] 66 mg/dL High 9-24 [facility] Comment on above: Order Comment: Speci men Type: BLOOD SPECIMENOrdering Facility: [facility] Address: [address] [place] [address] Performed By: #### 2 4321-2 ####[facility]CL[facility] [id number] [place] [address] [place] Anion gap [Moles/Vol] 18 mmol/L High 8-15 [facility] Comment on above: Order Comment: Speci men Type: BLOOD SPECIMENOrdering Facility: [facility] Address: [address] [place], [place] [address] Performed By: #### 2 4321-2 ####[facility] LABCL[facility] [id number] [place] [address] [place] Calcium [Mass/Vol] 9.4 mg/dL Normal 8.5-10.2 [facility] Comment on above: Order Comment: Speci men Type: BLOOD SPECIMENOrdering Facility: [facility] Address: [address] [place] [address] Performed By: #### 2 4321-2 ####[facility] [id number] [place] [address] [place] Chloride [Moles/Vol] 97 mmol/L Low 98-107 [facility] Comment on above: Order Comment: Speci men Type: BLOOD SPECIMENOrdering Facility: [facility] Address: [address] [place] [address] Performed By: #### 2 4321-2 ####[facility] [id number] [place] [address] [place] CO2 [Moles/Vol] 24 mmol/L Normal 22-30 [facility] Comment on above: Order Comment: Speci men Type: BLOOD SPECIMENOrdering Facility: [facility] Address: [address] [place], [place] [address] Performed By: #### 2 4321-2 ####[facility]CL[facility] [id number] [place] [id number] [place] Creatinine [Mass/Vol] 3.86 mg/dL High 0.73-1.22 [facility] Comment on above: Order Comment: Speci men Type: BLOOD SPECIMENOrdering Facility: [facility] Address: [address] [place], [place] [address] Performed By: #### 2 4321-2 ####[facility]CL[facility] [id number] [place] [id number] [place] Creatinine and Glomerular filtration rate.predicted panel (S/P/Bld) 15 mL/min/1.73m??? Low >=60 [facility] Comment on above: Order Comment: Dylan olvera Type: BLOOD SPECIMENOrdering Facility: [facility] Address: [address] [place] [address] Result Comment: Etta mated Glomerular Filtration Rate [...] actual GFR. Performed By: #### 2 4321-2 ####[facility]CL[facility] [id number] [place] [address] [place] Glucose [Mass/Vol] 66 mg/dL Low 74-99 [facility] Comment on above: Order Comment: Specgregory olvera Type: BLOOD SPECIMENOrdering Facility: [facility] Address: [address] [place] [address] Result Comment: The [place] Diabetes Association (ADA) provides guidance for cutoff [...] Standards of Medical Care in Diabetes 2016, [place] [employer]. Diabetes Care. 2016.39(Suppl 1). Performed By: #### 2 4321-2 ####[facility] LABCL[facility] [id number] [place] [address] [place] Sodium [Moles/Vol] 139 mmol/L Normal 136-144 [facility] Comment on above: Order Comment: Speci men Type: BLOOD SPECIMENOrdering Facility: [facility] Address: [address] [place] [address] Performed By: #### 2 4321-2 ####[facility] LABCLIA [id number] [place] [address] [place] CASE MANAGEMon 09-23-2024 CASE MANAGEM Normal [facility] CASE MANAGEM Normal [facility] CBC panel Auto (Bld)on 09-23 Erythrocyte distribution width (RBC) [Ratio] 19.9 % High 11.5-15.0 [facility] Comment on above: Order Comment: Speci men Type: BLOOD SPECIMENOrdering Facility: [facility] Address: [address] [place] [address] Performed By: #### 5 8410-2 ####[facility] LABCL[facility] [id number] [place] [address] [place] Hematocrit (Bld) [Volume fraction] 34.1 % Low 39.0-51.0 [facility] Comment on above: Order Comment: Speci men Type: BLOOD SPECIMENOrdering Facility: [facility] Address: [address] [place] [address] Performed By: #### 5 8410-2 ####[facility]CL[facility] [id number] [place] [address] [place] Hemoglobin (Bld) [Mass/Vol] 10.4 g/dL Low 13.0-17.0 [facility] Comment on above: Order Comment: Speci men Type: BLOOD SPECIMENOrdering Facility: [facility] Address: [address] [place] [address] Performed By: #### 5 8410-2 ####[facility] [id number] [place] [address] [place] MCH (RBC) [Entitic mass] 27.0 pg Normal 26.0-34.0 [facility] Comment on above: Order Comment: Speci men Type: BLOOD SPECIMENOrdering Facility: [facility] Address: [address] [place] [address] Performed By: #### 5 8410-2 ####[facility] LABIA [id number] [place] [address] [place] MCHC (RBC) [Mass/Vol] 30.5 g/dL Normal 30.5-36.0 [facility] Comment on above: Order Comment: Speci men Type: BLOOD SPECIMENOrdering Facility: [facility] Address: [address] [place] [address] Performed By: #### 5 8410-2 ####[facility] [id number] [place] [address] [place] MCV (RBC) [Entitic vol] 88.6 fL Normal 80.0-100.0 [facility] Comment on above: Order Comment: Speci men Type: BLOOD SPECIMENOrdering Facility: [facility] Address: [address] [place] [address] Performed By: #### 5 8410-2 ####[facility] [id number] [place] [address] [place] Nucleated RBC (Bld) [#/Vol] 0.02 10*3/uL High <0.01 [facility] Comment on above: Order Comment: Speci men Type: BLOOD SPECIMENOrdering Facility: [facility] Address: [address] [place] [address] Performed By: #### 5 8410-2 ####[facility] LABIA [id number] [place] [address] [place] Platelet mean volume (Bld) [Entitic vol] 9.8 fL Normal 9.0-12.7 [facility] Comment on above: Order Comment: Speci men Type: BLOOD SPECIMENOrdering Facility: [facility] Address: [address] [place] [address] Performed By: #### 5 8410-2 ####[facility]CL[facility] [id number] [place] [address] [place] Platelets (Bld) [#/Vol] 233 10*3/uL Normal 150-400 [facility] Comment on above: Order Comment: Speci men Type: BLOOD SPECIMENOrdering Facility: [facility] Address: [address] [place] [address] Performed By: #### 5 8410-2 ####[facility] LABIA [id number] [place] [address] [place] RBC (Bld) [#/Vol] 3.85 10*6/uL Low 4.20-6.00 [facility] Comment on above: Order Comment: Speci men Type: BLOOD SPECIMENOrdering Facility: [facility] Address: [address] [place] [address] Performed By: #### 5 8410-2 ####[facility] LABIA [id number] [place] [address] [place] WBC (Bld) [#/Vol] 4.76 10*3/uL Normal 3.70-11.00 [facility] Comment on above: Order Comment: Speci men Type: BLOOD SPECIMENOrdering Facility: [facility] Address: [address] [place] [address] Performed By: #### 5 8410-2 ####[facility] LABIA [id number] [place] [address] [place] Erythrocyte distribution width (RBC) [Ratio] 20.1 % High 11.5-15.0 [facility] Comment on above: Order Comment: Speci men Type: BLOOD SPECIMENOrdering Facility: [facility] Address: [address] [place] [address] Performed By: #### 5 8410-2 ####[facility] LABIA [id number] [place] [address] [place] Hematocrit (Bld) [Volume fraction] 34.8 % Low 39.0-51.0 [facility] Comment on above: Order Comment: Speci men Type: BLOOD SPECIMENOrdering Facility: [facility] Address: [address] [place] [address] Performed By: #### 5 8410-2 ####[facility] LABCLIA [id number] [place] [address] [place] Hemoglobin (Bld) [Mass/Vol] 10.2 g/dL Low 13.0-17.0 [facility] Comment on above: Order Comment: Speci men Type: BLOOD SPECIMENOrdering Facility: [facility] Address: [address] [place] [address] Performed By: #### 5 8410-2 ####[facility]CL[facility] [id number] [place] [address] [place] MCH (RBC) [Entitic mass] 26.2 pg Normal 26.0-34.0 [facility] Comment on above: Order Comment: Speci men Type: BLOOD SPECIMENOrdering Facility: [facility] Address: [address] [place] [address] Performed By: #### 5 8410-2 ####[facility] LABIA [id number] [place] [address] [place] MCHC (RBC) [Mass/Vol] 29.3 g/dL Low 30.5-36.0 [facility] Comment on above: Order Comment: Speci men Type: BLOOD SPECIMENOrdering Facility: [facility] Address: [address] [place] [address] Performed By: #### 5 8410-2 ####[facility]CL[facility] [id number] [place] [address] [place] MCV (RBC) [Entitic vol] 89.2 fL Normal 80.0-100.0 [facility] Comment on above: Order Comment: Speci men Type: BLOOD SPECIMENOrdering Facility: [facility] Address: [address] [place] [address] Performed By: #### 5 8410-2 ####[facility] [id number] [place] [address] [place] Nucleated RBC (Bld) [#/Vol] 0.03 10*3/uL High <0.01 [facility] Comment on above: Order Comment: Speci men Type: BLOOD SPECIMENOrdering Facility: [facility] Address: [address] [place] [address] Performed By: #### 5 8410-2 ####[facility] [id number] [place] [address] [place] Platelet mean volume (Bld) [Entitic vol] 10.1 fL Normal 9.0-12.7 [facility] Comment on above: Order Comment: Speci men Type: BLOOD SPECIMENOrdering Facility: [facility] Address: [address] [place] [address] Performed By: #### 5 8410-2 ####[facility] [id number] [place] [address] [place] Platelets (Bld) [#/Vol] 220 10*3/uL Normal 150-400 [facility] Comment on above: Order Comment: Speci men Type: BLOOD SPECIMENOrdering Facility: [facility] Address: [address] [place] [address] Performed By: #### 5 8410-2 ####[facility] [id number] [place] [address] [place] RBC (Bld) [#/Vol] 3.90 10*6/uL Low 4.20-6.00 [facility] Comment on above: Order Comment: Speci men Type: BLOOD SPECIMENOrdering Facility: [facility] Address: [address] [place] [address] Performed By: #### 5 8410-2 ####[facility]CL[facility] [id number] [address] [address] [place] WBC (Bld) [#/Vol] 4.88 10*3/uL Normal 3.70-11.00 [facility] Comment on above: Order Comment: Speci men Type: BLOOD SPECIMENOrdering Facility: [facility] Address: [address] [place] [address] Performed By: #### 5 8410-2 ####[facility]CL[facility] [id number] [place] [address] [place] CONSULTon 09-23-2024 CONSULT Normal [facility] CONSULT PROGon 09-23-2024 CONSULT PROG Normal [facility] ECHO LIMITEDon 09-23-2024 ECHO LIMITED Normal [facility] POTASSIUMon 09-23-2024 Potassium [Moles/Vol] 3.8 mmol/L Normal 3.7-5.1 [facility] Comment on above: Order Comment: Speci men Type: BLOOD SPECIMENOrdering Facility: [facility] Address: [address] [place] [address] Performed By: #### K 1 ####[facility] LABCL[facility] [id number] [place] [address] [place] Potassium [Moles/Vol] 3.5 mmol/L Low 3.7-5.1 [facility] Comment on above: Order Comment: Speci men Type: BLOOD SPECIMENOrdering Facility: 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 Address: [address] [place] [address] Result Comment: APIX ABAN PEAK AND TROUGH [...] Pharmacol. 2017;6(5):340-349. Performed By: #### A PIXBN ####[facility] LABCLIA [id number] [place] [address] [place] BIOTIN (VITAMIN B7)on 2024 VITAMIN B7, SERUM OR PLASMA 0.32 ng/mL Normal 0.05-0.83 [facility] Comment on above: Order Comment: Speci men Type: BLOOD SPECIMENOrdering Facility: [facility] Address: [address] [place] [address] Result Comment: This test was developed and its performance characteristicsdetermined by [facility]. It has not been cleared or approvedby the Food and Drug Administration.Performed by: 01 [facility] [place] [phone], Sanjai MD Performed By: #### V ITB7 ####[facility] [id number] [place] [address] Basic metabolic 2000 panelon 09-22-2024 Anion gap [Moles/Vol] 19 mmol/L High 8-15 [facility] Comment on above: Order Comment: Speci men Type: BLOOD SPECIMENOrdering Facility: [facility] Address: [address] [place] [address] Performed By: #### 2 4321-2 ####[facility] LABCLIA [id number] [place] [address] [place] Calcium [Mass/Vol] 9.2 mg/dL Normal 8.5-10.2 [facility] Comment on above: Order Comment: Speci men Type: BLOOD SPECIMENOrdering Facility: [facility] Address: [address] [place] [address] Performed By: #### 2 4321-2 ####[facility] LABCLIA [id number] [place] [address] [place] Chloride [Moles/Vol] 96 mmol/L Low 98-107 [facility] Comment on above: Order Comment: Speci men Type: BLOOD SPECIMENOrdering Facility: [facility] Address: [address] [place] [address] Performed By: #### 2 4321-2 ####[facility] LABCLIA [id number] [place] [address] [place] CO2 [Moles/Vol] 20 mmol/L Low 22-30 [facility] Comment on above: Order Comment: Speci men Type: BLOOD SPECIMENOrdering Facility: [facility] Address: [address] [place] [address] Performed By: #### 2 4321-2 ####[facility] LABCLIA [id number] [place] [id number] [place] Creatinine [Mass/Vol] 3.87 mg/dL High 0.73-1.22 [facility] Comment on above: Order Comment: Speci men Type: BLOOD SPECIMENOrdering Facility: [facility] Address: [address] [place] [address] Performed By: #### 2 4321-2 ####[facility]CL[facility] [id number] [place] [address] [place] Creatinine and Glomerular filtration rate.predicted panel (S/P/Bld) 15 mL/min/1.73m??? Low >=60 [facility] Comment on above: Order Comment: Speci men Type: BLOOD SPECIMENOrdering Facility: [facility] Address: [address] [place] [address] Result Comment: Etta mated Glomerular Filtration Rate [...] actual GFR. Performed By: #### 2 4321-2 ####[facility] LABIA [id number] [place] [address] [place] Glucose [Mass/Vol] 71 mg/dL Low 74-99 [facility] Comment on above: Order Comment: Speci men Type: BLOOD SPECIMENOrdering Facility: [facility] Address: [address] [place] [address] Result Comment: The [place] [employer] (ADA) provides guidance for cutoff [...] Standards of Medical Care in Diabetes 2016, [place] [employer]. Diabetes Care. 2016.39(Suppl 1). Performed By: #### 2 4321-2 ####[facility] LABIA [id number] [place] [address] [place] Potassium [Moles/Vol] 4.4 mmol/L Normal 3.7-5.1 [facility] Comment on above: Order Comment: Speci men Type: BLOOD SPECIMENOrdering Facility: [facility] Address: [address] [place] [address] Performed By: #### 2 4321-2 ####[facility] LABIA [id number] [place] [address] [place] Sodium [Moles/Vol] 135 mmol/L Low 136-144 [facility] Comment on above: Order Comment: Dylan olvera Type: BLOOD SPECIMENOrdering Facility: [facility] [facility] Address: [address] [place] [address] Performed By: #### 2 4321-2 ####[facility] LABIA [id number] [place] [address] [place] Urea nitrogen [Mass/Vol] 67 mg/dL High 9-24 [facility] Comment on above: Order Comment: Rozi men Type: BLOOD SPECIMENOrdering Facility: [facility] Address: [address] [place] [address] Performed By: #### 2 4321-2 ####[facility] LABIA [id number] [place] [id number] [place] CASE MANAGEMon 09-22-2024 CASE MANAGEM Normal [facility] CBC panel Auto (Bld)on 09-22 Erythrocyte distribution width (RBC) [Ratio] 20.2 % High 11.5-15.0 [facility] Comment on above: Order Comment: Speci men Type: BLOOD SPECIMENOrdering Facility: [facility] Address: [address] [place] [address] Performed By: #### 5 8410-2 ####[facility] LABIA [id number] [place] [address] [place] Hematocrit (Bld) [Volume fraction] 34.8 % Low 39.0-51.0 [facility] Comment on above: Order Comment: Speci men Type: BLOOD SPECIMENOrdering Facility: [facility] Address: [address] [place] [address] Performed By: #### 5 8410-2 ####[facility] LABIA [id number] [place] [address] [place] Hemoglobin (Bld) [Mass/Vol] 10.7 g/dL Low 13.0-17.0 [facility] Comment on above: Order Comment: Speci men Type: BLOOD SPECIMENOrdering Facility: [facility] Address: [address] [place] [address] Performed By: #### 5 8410-2 ####[facility] LABIA [id number] [place] [address] [place] MCH (RBC) [Entitic mass] 27.4 pg Normal 26.0-34.0 [facility] Comment on above: Order Comment: Speci men Type: BLOOD SPECIMENOrdering Facility: [facility] Address: [address] [place] [address] Performed By: #### 5 8410-2 ####[facility] LABIA [id number] [place] [address] [place] MCHC (RBC) [Mass/Vol] 30.7 g/dL Normal 30.5-36.0 [facility] Comment on above: Order Comment: Speci men Type: BLOOD SPECIMENOrdering Facility: [facility] Address: [address] [place] [address] Performed By: #### 5 8410-2 ####[facility] LABIA [id number] [place] [address] [place] MCV (RBC) [Entitic vol] 89.2 fL Normal 80.0-100.0 [facility] Comment on above: Order Comment: Speci men Type: BLOOD SPECIMENOrdering Facility: [facility] Address: [address] [place] [address] Performed By: #### 5 8410-2 ####[facility] LABIA [id number] [place] [address] [place] Nucleated RBC (Bld) [#/Vol] 10*3/uL Normal <0.01 [facility] Comment on above: Order Comment: Speci men Type: BLOOD SPECIMENOrdering Facility: [facility] Address: [address] [place] [address] Performed By: #### 5 8410-2 ####[facility] LABIA [id number] [place] [address] [place] Platelet mean volume (Bld) [Entitic vol] 10.0 fL Normal 9.0-12.7 [facility] Comment on above: Order Comment: Speci men Type: BLOOD SPECIMENOrdering Facility: [facility] Address: [address] [place] [address] Performed By: #### 5 8410-2 ####[facility] LABCLIA [id number] [place] [address] [place] Platelets (Bld) [#/Vol] 214 10*3/uL Normal 150-400 [facility] Comment on above: Order Comment: Speci men Type: BLOOD SPECIMENOrdering Facility: [facility] Address: [address] [place] [address] Performed By: #### 5 8410-2 ####[facility] LABCLIA [id number] [place] [address] [place] RBC (Bld) [#/Vol] 3.90 10*6/uL Low 4.20-6.00 [facility] Comment on above: Order Comment: Speci men Type: BLOOD SPECIMENOrdering Facility: [facility] Address: [address] [place] [address] Performed By: #### 5 8410-2 ####[facility] LABIA [id number] [place] [address] [place] WBC (Bld) [#/Vol] 5.21 10*3/uL Normal 3.70-11.00 [facility] Comment on above: Order Comment: Speci men Type: BLOOD SPECIMENOrdering Facility: [facility] Address: [address] [place] [address] Performed By: #### 5 8410-2 ####[facility] [id number] [place] [address] [place] CONSULTon 09-22-2024 CONSULT Normal [facility] CONSULT Normal [facility] Creatinine Unsp time (U) [Ma ss/Vol]on 09-22-2024 Creatinine (U) [Mass/Vol] 27.0 mg/dL Normal 20.0-300.0 [facility] Comment on above: Order Comment: Speci men Type: URINE SPECIMENOrdering Facility: [facility] Address: [address] [place] [address] Performed By: #### 3 5678-2, UUNR, 75698-4 ####[facility] LABIA [id number] [place] [address] [place] NM PET/CT CARD PERF REST/STR ESSon 09-22-2024 NM PET/CT CARD PERF REST/STRESS Normal [facility] NM PET/CT CARDIAC VIABILITYo n 09-22-2024 NM PET/CT CARDIAC VIABILITY Normal [facility] NURSING PROGon 09-22-2024 NURSING PROG Normal [facility] PTT, ANTICOAGULANT THERAPYon 09-22-2024 aPTT Coag (PPP) [Time] 42.8 s High 23.0-32.4 [facility] Comment on above: Order Comment: Speci men Type: BLOOD SPECIMENOrdering Facility: [facility] Address: [address] [place] [address] Performed By: #### P TTAC ####[facility] LABIA [id number] [place] [address] [place] Sodium ?Tm Ur-sCncon 025 Sodium Unsp time (U) [Moles/Vol] 92 mmol/L Normal 14-216 [facility] Comment on above: Order Comment: Speci men Type: URINE SPECIMENOrdering Facility: [facility] Address: [address] [place] [address] Performed By: #### 3 5678-2, UUNR, 74725-1 ####[facility] [id number] [place] [address] [place] THERAPY NTon 09-22-2024 THERAPY NT Normal [facility] THERAPY NT Normal [facility] THERAPY NT Normal [facility] UREA NITROGEN, RANDOM URINEo n 09-22-2024 UREA NITROGEN,UR,RAN 224 mg/dL Normal 140-1500 [facility] Comment on above: Order Comment: Speci men Type: URINE SPECIMENOrdering Facility: [facility] Address: [address] [place] [address] Performed By: #### 3 5678-2, UUNR, 68900-9 ####[facility] [id number] [place] [address] [place] Basic metabolic 2000 panelon 09-21-2024 Anion gap [Moles/Vol] 17 mmol/L High 8-15 [facility] Comment on above: Order Comment: Speci men Type: BLOOD SPECIMENOrdering Facility: [facility] Address: [address] [place] [address] Performed By: #### 2 4321-2, 23690-0, 70303-4, 2275-4 ####[facility] LABCLIA [id number] [address] [address] [place] Calcium [Mass/Vol] 8.9 mg/dL Normal 8.5-10.2 [facility] Comment on above: Order Comment: Speci men Type: BLOOD SPECIMENOrdering Facility: [facility] Address: [address] [place], [place] [address] Performed By: #### 2 4321-2, 32721-6, 88322-4, 2275-4 ####[facility] LABIA [id number] [address] [address] [place] Chloride [Moles/Vol] 96 mmol/L Low 98-107 [facility] Comment on above: Order Comment: Speci men Type: BLOOD SPECIMENOrdering Facility: [facility] Address: [address] [place] [address] Performed By: #### 2 4321-2, 18822-3, 29566-5, 2275-4 ####[facility] LABIA [id number] [address] [address] [place] CO2 [Moles/Vol] 22 mmol/L Normal 22-30 [facility] Comment on above: Order Comment: Speci men Type: BLOOD SPECIMENOrdering Facility: [facility] Address: [address] [place] [address] Performed By: #### 2 4321-2, 86850-7, 53731-6, 2275-4 ####[facility] LABIA [id number] [address] [address] [place] Creatinine [Mass/Vol] 3.53 mg/dL High 0.73-1.22 [facility] Comment on above: Order Comment: Speci men Type: BLOOD SPECIMENOrdering Facility: [facility] Address: [address] [place] [address] Performed By: #### 2 4321-2, 58565-3, 87784-3, 6-4 ####[facility] LABIA [id number] [place] [address] [place] Creatinine and Glomerular filtration rate.predicted panel (S/P/Bld) 17 mL/min/1.73m??? Low >=60 [facility] Comment on above: Order Comment: Dylan olvera Type: BLOOD SPECIMENOrdering Facility: [facility] Address: [address] [place] [address] Result Comment: Etta mated Glomerular Filtration Rate [...] actual GFR. Performed By: #### 2 4321-2, 96715-8, 99297-7, 6-4 ####[facility] LABIA [id number] [place] [address] [place] Glucose [Mass/Vol] 95 mg/dL Normal 74-99 [facility] Comment on above: Order Comment: Dylan olvera Type: BLOOD SPECIMENOrdering Facility: [facility] Address: [address] [place] [address] Result Comment: The [place] [employer] (ADA) provides guidance for cutoff [...] Standards of Medical Care in Diabetes 2016, [place] [employer]. Diabetes Care. 2016.39(Suppl 1). Performed By: #### 2 4321-2, 13519-9, 33346-4, 2275-4 ####[facility] LABCLIA [id number] [address] [address] [place] Potassium [Moles/Vol] 4.8 mmol/L Normal 3.7-5.1 [facility] Comment on above: Order Comment: Speci men Type: BLOOD SPECIMENOrdering Facility: [facility] Address: [address] [place] [address] Performed By: #### 2 4321-2, 00071-7, 22525-4, 2275-4 ####[facility] LABIA [id number] [place] [address] [place] Sodium [Moles/Vol] 135 mmol/L Low 136-144 [facility] Comment on above: Order Comment: Speci men Type: BLOOD SPECIMENOrdering Facility: [facility] Address: [address] [place] [address] Performed By: #### 2 4321-2, 03460-1, 51082-5, 2275-12 ####[facility] LABIA [id number] [place] [address] [place] Urea nitrogen [Mass/Vol] 58 mg/dL High 9-24 [facility] Comment on above: Order Comment: Speci men Type: BLOOD SPECIMENOrdering Facility: [facility] Address: [address] [place] [address] Performed By: #### 2 4321-2, 31106-4, 70476-6, 4 ####[facility] LABIA [id number] [place] [address] [place] CASE MANAGEMon 09-21-2024 CASE MANAGEM Normal [facility] CBC panel Auto (Bld)on 09-21 Erythrocyte distribution width (RBC) [Ratio] 20.1 % High 11.5-15.0 [facility] Comment on above: Order Comment: Speci men Type: BLOOD SPECIMENOrdering Facility: [facility] Address: [address] [place] [address] Performed By: #### 5 8410-2 ####[facility] LABCLIA [id number] [place] [address] [place] Hematocrit (Bld) [Volume fraction] 35.5 % Low 39.0-51.0 [facility] Comment on above: Order Comment: Speci men Type: BLOOD SPECIMENOrdering Facility: [facility] Address: [address] [place] [address] Performed By: #### 5 8410-2 ####[facility] LABCLIA [id number] [place] [address] [place] Hemoglobin (Bld) [Mass/Vol] 10.4 g/dL Low 13.0-17.0 [facility] Comment on above: Order Comment: Speci men Type: BLOOD SPECIMENOrdering Facility: [facility] Address: [address] [place] [address] Performed By: #### 5 8410-2 ####[facility] LABCLIA [id number] [place] [address] [place] MCH (RBC) [Entitic mass] 26.5 pg Normal 26.0-34.0 [facility] Comment on above: Order Comment: Speci men Type: BLOOD SPECIMENOrdering Facility: [facility] Address: [address] [place] [address] Performed By: #### 5 8410-2 ####[facility] LABCLIA [id number] [place] [address] [place] MCHC (RBC) [Mass/Vol] 29.3 g/dL Low 30.5-36.0 [facility] Comment on above: Order Comment: Speci men Type: BLOOD SPECIMENOrdering Facility: [facility] Address: [address] [place] [address] Performed By: #### 5 8410-2 ####[facility] LABCLIA [id number] [place] [address] [place] MCV (RBC) [Entitic vol] 90.3 fL Normal 80.0-100.0 [facility] Comment on above: Order Comment: Speci men Type: BLOOD SPECIMENOrdering Facility: [facility] Address: [address] [place] [address] Performed By: #### 5 8410-2 ####[facility] LABIA [id number] [place] [address] [place] Nucleated RBC (Bld) [#/Vol] 10*3/uL Normal <0.01 [facility] Comment on above: Order Comment: Speci men Type: BLOOD SPECIMENOrdering Facility: [facility] Address: [address] [place] [address] Performed By: #### 5 8410-2 ####[facility] LABIA [id number] [place] [address] [place] Platelet mean volume (Bld) [Entitic vol] 10.7 fL Normal 9.0-12.7 [facility] Comment on above: Order Comment: Speci men Type: BLOOD SPECIMENOrdering Facility: [facility] Address: [address] [place] [address] Performed By: #### 5 8410-2 ####[facility] LABIA [id number] [place] [address] [place] Platelets (Bld) [#/Vol] 227 10*3/uL Normal 150-400 [facility] Comment on above: Order Comment: Speci men Type: BLOOD SPECIMENOrdering Facility: [facility] Address: [address] [place] [address] Performed By: #### 5 8410-2 ####[facility] LABCLIA [id number] [place] [address] [place] RBC (Bld) [#/Vol] 3.93 10*6/uL Low 4.20-6.00 [facility] Comment on above: Order Comment: Speci men Type: BLOOD SPECIMENOrdering Facility: [facility] Address: [address] [place] [address] Performed By: #### 5 8410-2 ####[facility] LABCLIA [id number] [place] [address] [place] WBC (Bld) [#/Vol] 5.87 10*3/uL Normal 3.70-11.00 [facility] Comment on above: Order Comment: Speci men Type: BLOOD SPECIMENOrdering Facility: [facility] Address: [address] [place] [address] Performed By: #### 5 8410-2 ####[facility] LABCLIA [id number] [place] [address] [place] Ferritin SerPl-mCncon 2024 Ferritin [Mass/Vol] 162.0 ng/mL Normal 30.3-565.7 [facility] Comment on above: Order Comment: Speci men Type: BLOOD SPECIMENOrdering Facility: [facility] Address: [address] [place] [address] Performed By: #### 2 4321-2, 19704-4, 12111-6, 2276-4 ####[facility] LABCLIA [id number] [place] [address] [place] Iron and Iron binding capaci ty panelon 09-21-2024 Iron [Mass/Vol] 26 ug/dL Low 41-186 [facility] Comment on above: Order Comment: Speci men Type: BLOOD SPECIMENOrdering Facility: [facility] Address: [address] [place] [address] Performed By: #### 2 4321-2, 59293-0, 34283-9, 2276-4 ####[facility] LABCLIA [id number] [address] [id number] [address] [place] Iron binding capacity [Mass/Vol] 359 ug/dL Normal 232-386 [facility] Comment on above: Order Comment: Speci men Type: BLOOD SPECIMENOrdering Facility: [facility] Address: [address] [place], [place] [address] Performed By: #### 2 4321-2, 18579-2, 88419-7, 6-4 ####[facility] LABIA [id number] [place] [address] [place] Iron/TIBC [Molar ratio] 7.2 % Low 15.0-57.0 [facility] Comment on above: Order Comment: Speci men Type: BLOOD SPECIMENOrdering Facility: [facility] Address: [address] [place] [address] Performed By: #### 2 4321-2, 93839-0, 20604-7, 2275-4 ####[facility] LABIA [id number] [place] [address] [place] Magnesium SerPl-mCncon 09-21 Magnesium [Mass/Vol] 2.6 mg/dL High 1.7-2.3 [facility] Comment on above: Order Comment: Speci men Type: BLOOD SPECIMENOrdering Facility: [facility] Address: [address] [place] [address] Performed By: #### 2 4321-2, 75036-6, 12224-2, 2275-4 ####[facility] LABIA [id number] [place] [id number] [place] O2 SATURATION (POC)on 2024 %HbO2 (Oxyhemoglobin)(POC T) 60.1 % [facility] Additional Comments (POCT) Venous 60%-85%; Arterial 95%-98% [facility] Comment (POCT) No anatomical site g iven %HBO2 ref range [facility] Hemoglobin (Bld) [Mass/Vol] 9.8 g/dL Abnormal 13.0 - 17.0 g/dL [facility] Interpretation and review of laboratory results Abnormal [facility] Location:[employer] [facility], [address] [place] [address], [address] [place] [address] POINT OF CARE [facility] PT EDon 09-21-2024 PT ED Normal [facility] PT panel Coag (PPP)on 2024 INR Coag (PPP) [Relative time] 1.7 {INR} High 0.9-1.3 [facility] Comment on above: Order Comment: Dylan olvera Type: BLOOD SPECIMENOrdering Facility: [facility] Address: [address] [place] [address] Result Comment: Loulou min K Antagonist (VKA) Therapeutic Range: INR 2 to 3 (Target INR of 2.5)Note: For patients treated with VKA drugs, such as warfarin, the [place] [employer] 2012 Guideline recommends [...] of 3).Olamide CHAUHAN, et al. Chest 2012, 141:7S-47SJavier PEREZ, et al. [facility] 2017, 70: 252-289 Performed By: #### P TTA, 45975-9 ####[facility] LABCLIA [id number] [place] [address] [place] PT Coag (PPP) [Time] 17.9 s High 9.7-13.0 [facility] Comment on above: Order Comment: Dylan olvera Type: BLOOD SPECIMENOrdering Facility: [facility] Address: [address] [place] [address] Performed By: #### P TTA, 17186-6 ####[facility] LABCLIA [id number] [address] [place] PTT, ANTICOAGULANT THERAPYon 09-21-2024 aPTT Coag (PPP) [Time] 131.2 s High 23.0-32.4 [facility] Comment on above: Order Comment: Speci men Type: BLOOD SPECIMENOrdering Facility: [facility] Address: [address] [place] [address] Result Comment: Samp le checked for clot.Result rechecked. Performed By: #### P TTAC ####[facility] LABCLIA [id number] [address] [place] aPTT Coag (PPP) [Time] 107.7 s High 23.0-32.4 [facility] Comment on above: Order Comment: Speci men Type: BLOOD SPECIMENOrdering Facility: [facility] Address: [address] [place] [address] Result Comment: Samp le checked for clot.Result rechecked. Performed By: #### P TTAC, 74515-2 ####[facility] [id number] [address] [place] THERAPY NTon 09-21-2024 THERAPY NT Normal [facility] TYPE + SCREENon 09-21-2024 ABO O Normal [facility] Comment on above: Order Comment: Speci men Type: BLOOD SPECIMENOrdering Facility: [facility] Address: [address] [place] [address] Performed By: #### T SCR ####[facility] BLOOD BANKIA [id number] [address] [place] Rh Nom (Bld) Positive Normal [facility] Comment on above: Order Comment: Speci men Type: BLOOD SPECIMENOrdering Facility: [facility] Address: [address] [place] [address] Performed By: #### T SCR ####[facility] BLOOD BANKCLIA [id number] [address] [place] TYPE AND SCREEN EXPIRATION 09/24/2024 23:59 Normal [facility] Comment on above: Order Comment: Speci men Type: BLOOD SPECIMENOrdering Facility: [facility] Address: [address] [place] [address] Performed By: #### T SCR ####[facility] BLOOD BANKIA [id number] [place] [address] [place] US KIDNEY/BLADDERon 09-21-19 25 US KIDNEY/BLADDER Normal [facility] Urinalysis complete panel (U )on 09-21-2024 Bacteria LM.HPF (Urine sed) [#/Area] Negative Normal Negative [facility] Comment on above: Order Comment: Speci men Type: URINE SPECIMENOrdering Facility: [facility] Address: [address] [place] [address] Performed By: #### 2 4356-8 ####[facility] LABCLIA [id number] [place] [address] [place] Bilirubin Ql (U) Negative Normal Negative [facility] Comment on above: Order Comment: Speci men Type: URINE SPECIMENOrdering Facility: [facility] Address: [address] [place] [address] Performed By: #### 2 4356-8 ####[facility] LABCLIA [id number] [place] [address] [place] Clarity (Unsp spec) Clear Normal Clear [facility] Comment on above: Order Comment: Speci men Type: URINE SPECIMENOrdering Facility: [facility] Address: [address] [place] [address] Performed By: #### 2 4356-8 ####[facility] LABCLIA [id number] [place] [address] [place] Color (U) Yellow Normal Yellow [facility] Comment on above: Order Comment: Speci men Type: URINE SPECIMENOrdering Facility: [facility] Address: [address] [place] [address] Performed By: #### 2 4356-8 ####[facility] LABCLIA [id number] [place] [address] [place] Epithelial cells LM.HPF (Urine sed) [#/Area] None Seen Normal [facility] Comment on above: Order Comment: Speci men Type: URINE SPECIMENOrdering Facility: [facility] Address: [address] [place] [address] Performed By: #### 2 4356-8 ####[facility] LABCLIA [id number] [place] [address] [place] Glucose Test strip (U) [Mass/Vol] Negative Normal Negative [facility] Comment on above: Order Comment: Speci men Type: URINE SPECIMENOrdering Facility: [facility] Address: [address] [place] [address] Performed By: #### 2 4356-8 ####[facility] LABCLIA [id number] [place] [address] [place] Hemoglobin Ql (U) 2+ Abnormal Negative [facility] Comment on above: Order Comment: Speci men Type: URINE SPECIMENOrdering Facility: [facility] Address: [address] [place] [address] Performed By: #### 2 4356-8 ####[facility] LABCLIA [id number] [place] [address] [place] Hyaline casts (Urine sed) [#/Area] 4-10 /LPF Abnormal 0 /LPF [facility] Comment on above: Order Comment: Speci men Type: URINE SPECIMENOrdering Facility: [facility] Address: [address] [place] [address] Performed By: #### 2 4356-8 ####[facility] LABCLIA [id number] [place] [address] [place] Ketones Ql (U) Negative Normal Negative [facility] Comment on above: Order Comment: Speci men Type: URINE SPECIMENOrdering Facility: [facility] Address: [address] [place] [address] Performed By: #### 2 4356-8 ####[facility] [facility] [id number] [place] [address] [place] Leukocyte esterase Test strip Ql (U) Negative Normal Negative [facility] Comment on above: Order Comment: Speci men Type: URINE SPECIMENOrdering Facility: [facility] Address: [address] [place] [address] Performed By: #### 2 4356-8 ####[facility] LABCLIA [id number] [place] [address] [place] Nitrite Ql (U) Negative Normal Negative [facility] Comment on above: Order Comment: Speci men Type: URINE SPECIMENOrdering Facility: [facility] Address: [address] [place] [address] Performed By: #### 2 4356-8 ####[facility] LABCLIA [id number] [place] [address] [place] pH (U) 6.5 [pH] Normal <8.5 [facility] Comment on above: Order Comment: Speci men Type: URINE SPECIMENOrdering Facility: [facility] Address: [address] [place] [address] Performed By: #### 2 4356-8 ####[facility] LABCLIA [id number] [place] [address] [place] Protein (U) [Mass/Vol] Trace Abnormal Negative [facility] Comment on above: Order Comment: Speci men Type: URINE SPECIMENOrdering Facility: [facility] Address: [address] [place] [address] Performed By: #### 2 4356-8 ####[facility] LABCLIA [id number] [place] [address] [place] RBC LM.HPF (Urine sed) [#/Area] 6-10 /HPF Abnormal 0-2 /HPF [facility] Comment on above: Order Comment: Speci men Type: URINE SPECIMENOrdering Facility: [facility] Address: [address] [place] [address] Performed By: #### 2 4356-8 ####[facility] LABIA [id number] [place] [address] [place] Specific gravity (U) [Rel density] 1.010 Normal 1.005-1.030 [facility] Comment on above: Order Comment: Speci men Type: URINE SPECIMENOrdering Facility: [facility] Address: [address] [place] [address] Performed By: #### 2 4356-8 ####[facility] LABIA [id number] [place] [address] [place] Urobilinogen Ql (U) 0.2 EU/dL Normal 0.2-1.0 EU/dL [facility] Comment on above: Order Comment: Speci men Type: URINE SPECIMENOrdering Facility: [facility] Address: [address] [place] [address] Performed By: #### 2 4356-8 ####[facility] LABIA [id number] [place] [address] [place] WBC LM.HPF (Urine sed) [#/Area] 0-5 /HPF Normal 0-5 /HPF [facility] Comment on above: Order Comment: Speci men Type: URINE SPECIMENOrdering Facility: [facility] Address: [address] [place] [address] Performed By: #### 2 4356-8 ####[facility] LABIA [id number] [place] [address] [place] APIXABAN ASSAYon 09-20-2024 APIXABAN 442 ng/mL Normal [facility] Comment on above: Order Comment: Speci men Type: BLOOD SPECIMENOrdering Facility: [facility] Address: [address] [place] [address] Result Comment: APIX ABAN PEAK AND TROUGH [...] 572 ng/mLTrough: 41 to 335 ng/mLReference: [facility] Pharmacocetrics Syst Pharmacol. 2017;6(5):340-349. Performed By: #### A PIXBN ####[facility] LABIA [id number] [place] [address] [place] Basic metabolic 2000 panelon 09-20-2024 Anion gap [Moles/Vol] 15 mmol/L Normal 8-15 [facility] Comment on above: Order Comment: Speci men Type: BLOOD SPECIMENOrdering Facility: [facility] Address: [address] [place] [address] Performed By: #### 3 3762-6, 27602-8, ####[facility] LABIA [id number] [place] [address] [place] Calcium [Mass/Vol] 9.0 mg/dL Normal 8.5-10.2 [facility] Comment on above: Order Comment: Speci men Type: BLOOD SPECIMENOrdering Facility: [facility] Address: [address] [place] [address] Performed By: #### 3 3762-6, 43204-6, ####[facility] LABCLIA [id number] [address] [address] [place] Chloride [Moles/Vol] 97 mmol/L Low 98-107 [facility] Comment on above: Order Comment: Speci men Type: BLOOD SPECIMENOrdering Facility: [facility] Address: [address] [place] [address] Performed By: #### 3 3762-6, 91403-2, ####[facility] LABIA [id number] [place] [address] [place] CO2 [Moles/Vol] 23 mmol/L Normal 22-30 [facility] Comment on above: Order Comment: Speci men Type: BLOOD SPECIMENOrdering Facility: [facility] Address: [address] [place] [address] Performed By: #### 3 3762-6, , ####[facility] LABIA [id number] [place] [address] [place] Creatinine [Mass/Vol] 2.79 mg/dL High 0.73-1.22 [facility] Comment on above: Order Comment: Speci men Type: BLOOD SPECIMENOrdering Facility: [facility] Address: [address] [place] [address] Performed By: #### 3 3762-6, , ####[facility] LABIA [id number] [place] [id number] [place] Creatinine and Glomerular filtration rate.predicted panel (S/P/Bld) 22 mL/min/1.73m??? Low >=60 [facility] Comment on above: Order Comment: Speci men Type: BLOOD SPECIMENOrdering Facility: [facility] Address: [address] [place] [address] Result Comment: Etta mated Glomerular Filtration Rate [...] actual GFR. Performed By: #### 3 3762-6, 02589-8, ####[facility] LABCLIA [id number] [place] [address] [place] Glucose [Mass/Vol] 116 mg/dL High 74-99 [facility] Comment on above: Order Comment: Speci men Type: BLOOD SPECIMENOrdering Facility: [facility] Address: [address] [place] [address] Result Comment: The [place] [employer] (ADA) provides guidance for cutoff [...] Standards of Medical Care in Diabetes 2016, [place] [employer]. Diabetes Care. 2016.39(Suppl 1). Performed By: #### 3 3762-6, 72227-9, ####[facility] LABCLIA [id number] [place] [id number] [place] Potassium [Moles/Vol] 4.3 mmol/L Normal 3.7-5.1 [facility] Comment on above: Order Comment: Rozi men Type: BLOOD SPECIMENOrdering Facility: [facility] Address: [address] [place] [address] Performed By: #### 3 3762-6, 67671-4, ####[facility] LABCLIA [id number] [place] [address] [place] Sodium [Moles/Vol] 135 mmol/L Low 136-144 [facility] Comment on above: Order Comment: Speci men Type: BLOOD SPECIMENOrdering Facility: [facility] Address: [address] [place] [address] Performed By: #### 3 3762-6, 01557-9, 93523-2 ####[facility] LABCLIA [id number] [place] [address] [place] Urea nitrogen [Mass/Vol] 46 mg/dL High 9-24 [facility] Comment on above: Order Comment: Speci men Type: BLOOD SPECIMENOrdering Facility: [facility] Address: [address] [place] [address] Performed By: #### 3 3762-6, 58728-7, ####[facility] LABCLIA [id number] [place] [address] [place] CBC panel Auto (Bld)on 09-20 Erythrocyte distribution width (RBC) [Ratio] 20.1 % High 11.5-15.0 [facility] Comment on above: Order Comment: Speci men Type: BLOOD SPECIMENOrdering Facility: [facility] Address: [address] [place] [address] Performed By: #### 5 8410-2 ####[facility] LABCLIA [id number] [place] [address] [place] Hematocrit (Bld) [Volume fraction] 33.9 % Low 39.0-51.0 [facility] Comment on above: Order Comment: Speci men Type: BLOOD SPECIMENOrdering Facility: [facility] Address: [address] [place] [address] Performed By: #### 5 8410-2 ####[facility] LABCLIA [id number] [place] [address] [place] Hemoglobin (Bld) [Mass/Vol] 10.4 g/dL Low 13.0-17.0 [facility] Comment on above: Order Comment: Speci men Type: BLOOD SPECIMENOrdering Facility: [facility] Address: [address] [place] [address] Performed By: #### 5 8410-2 ####[facility] LABIA [id number] [place] [address] [place] MCH (RBC) [Entitic mass] 27.7 pg Normal 26.0-34.0 [facility] Comment on above: Order Comment: Speci men Type: BLOOD SPECIMENOrdering Facility: [facility] Address: [address] [place] [address] Performed By: #### 5 8410-2 ####[facility] LABIA [id number] [place] [address] [place] MCHC (RBC) [Mass/Vol] 30.7 g/dL Normal 30.5-36.0 [facility] Comment on above: Order Comment: Speci men Type: BLOOD SPECIMENOrdering Facility: [facility] Address: [address] [place] [address] Performed By: #### 5 8410-2 ####[facility] LABIA [id number] [place] [address] [place] MCV (RBC) [Entitic vol] 90.2 fL Normal 80.0-100.0 [facility] Comment on above: Order Comment: Speci men Type: BLOOD SPECIMENOrdering Facility: [facility] Address: [address] [place] [address] Performed By: #### 5 8410-2 ####[facility] LABIA [id number] [place] [address] [place] Nucleated RBC (Bld) [#/Vol] 10*3/uL Normal <0.01 [facility] Comment on above: Order Comment: Speci men Type: BLOOD SPECIMENOrdering Facility: [facility] Address: [address] [place] [address] Performed By: #### 5 8410-2 ####[facility] LABCLIA [id number] [place] [address] [place] Platelet mean volume (Bld) [Entitic vol] 10.2 fL Normal 9.0-12.7 [facility] Comment on above: Order Comment: Speci men Type: BLOOD SPECIMENOrdering Facility: [facility] Address: [address] [place] [address] Performed By: #### 5 8410-2 ####[facility] LABCLIA [id number] [place] [address] [place] Platelets (Bld) [#/Vol] 223 10*3/uL Normal 150-400 [facility] Comment on above: Order Comment: Speci men Type: BLOOD SPECIMENOrdering Facility: [facility] Address: [address] [place] [address] Performed By: #### 5 8410-2 ####[facility] LABCLIA [id number] [place] [address] [place] RBC (Bld) [#/Vol] 3.76 10*6/uL Low 4.20-6.00 [facility] Comment on above: Order Comment: Speci men Type: BLOOD SPECIMENOrdering Facility: [facility] Address: [address] [place] [address] Performed By: #### 5 8410-2 ####[facility] LABCLIA [id number] [place] [address] [place] WBC (Bld) [#/Vol] 5.17 10*3/uL Normal 3.70-11.00 [facility] Comment on above: Order Comment: Speci men Type: BLOOD SPECIMENOrdering Facility: [facility] Address: [address] [place] [address] Performed By: #### 5 8410-2 ####[facility] LABCLIA [id number] [place] [address] [place] Fact Xa PPP-aCncon 5 Coagulation factor X activated act Coag Qn (PPP) >1.50 High <0.10 [facility] Comment on above: Order Comment: Dylan olvera Type: BLOOD SPECIMENOrdering Facility: [facility] Address: [address] [place] [address] Result Comment: Extr shawanda high heparin anti-Xa [...] IU/mL. Performed By: #### 3 217-7, PTTAC ####[facility] [id number] [address] [place] Coagulation factor X activated act Coag Qn (PPP) >1.50 High <0.10 [facility] Comment on above: Order Comment: Dylan olvera Type: BLOOD SPECIMENOrdering Facility: [facility] Address: [address] [place] [address] Result Comment: Extr shawanda high heparin anti-Xa [...] IU/mL. Performed By: #### 3 217-7, PTTAC ####[facility] LABIA [id number] [place] [address] [place] Magnesium SerPl-mCncon 09-20 Magnesium [Mass/Vol] 2.5 mg/dL High 1.7-2.3 [facility] Comment on above: Order Comment: Speci men Type: BLOOD SPECIMENOrdering Facility: [facility] Address: [address] [place] [address] Performed By: #### 3 3762-6, 40662-0, ####[facility] LABIA [id number] [place] [address] [place] NT-proBNP [facility] 09-20 Natriuretic peptide.B prohormone N-Terminal [Mass/Vol] 46502 pg/mL High <450 [facility] Comment on above: Order Comment: Speci men Type: BLOOD SPECIMENOrdering Facility: [facility] Address: [address] [place] [address] Performed By: #### 3 3762-6, 03218-6, ####[facility] LABIA [id number] [place] [address] [place] PTT, ANTICOAGULANT THERAPYon 09-20-2024 aPTT Coag (PPP) [Time] 42.3 s High 23.0-32.4 [facility] Comment on above: Order Comment: Speci men Type: BLOOD SPECIMENOrdering Facility: [facility] Address: [address] [place] [address] Performed By: #### P TTAC ####[facility] LABIA [id number] [place] [address] [place] aPTT Coag (PPP) [Time] 33.6 s High 23.0-32.4 [facility] Comment on above: Order Comment: Speci men Type: BLOOD SPECIMENOrdering Facility: [facility] Address: [address] [place] [address] Performed By: #### 3 217-7, PTTAC ####[facility] LABIA [id number] [place] [address] [place] aPTT Coag (PPP) [Time] 97.9 s High 23.0-32.4 [facility] Comment on above: Order Comment: Speci men Type: BLOOD SPECIMENOrdering Facility: [facility] Address: [address] [place] [address] Result Comment: Samp le checked for clot.Result rechecked. Performed By: #### 3 217-7, PTTAC ####[facility] LABIA [id number] [place] [address] [place] aPTT Coag (PPP) [Time] s High 23.0-32.4 [facility] Comment on above: Order Comment: Speci men Type: BLOOD SPECIMENOrdering Facility: [facility] Address: [address] [place] [address] Result Comment: Samp le checked for clot.Result rechecked. Performed By: #### P TTAC ####[facility] LABCLIA [id number] [place] [address] [place] THERAPY NTon 09-20-2024 THERAPY NT Normal [facility] THERAPY NT Normal [facility] Basic metabolic 2000 panelon 09-19-2024 Anion gap [Moles/Vol] 15 mmol/L Normal 8-15 [facility] Comment on above: Order Comment: Speci men Type: BLOOD SPECIMENOrdering Facility: [facility] Address: [address] [place] [address] Performed By: #### 3 051-0, 10665-7, 11004-0, 3024-7 ####[facility] LABCLIA [id number] [place] [address] [place] Calcium [Mass/Vol] 8.9 mg/dL Normal 8.5-10.2 [facility] Comment on above: Order Comment: Speci men Type: BLOOD SPECIMENOrdering Facility: [facility] Address: [address] [place] [address] Performed By: #### 3 051-0, 04432-3, , 3024-03 ####[facility] LABCLIA [id number] [place] [address] [place] Chloride [Moles/Vol] 98 mmol/L Normal 98-107 [facility] Comment on above: Order Comment: Speci men Type: BLOOD SPECIMENOrdering Facility: [facility] Address: [address] [place] [address] Performed By: #### 3 051-0, 09052-7, , 3024-03 ####[facility] LABCLIA [id number] [place] [address] [place] CO2 [Moles/Vol] 23 mmol/L Normal 22-30 [facility] Comment on above: Order Comment: Speci men Type: BLOOD SPECIMENOrdering Facility: [facility] Address: [address] [place] [address] Performed By: #### 3 051-0, 01468-3, , 3024-03 ####[facility] LABCLIA [id number] [place] [address] [place] Creatinine [Mass/Vol] 2.28 mg/dL High 0.73-1.22 [facility] Comment on above: Order Comment: Speci men Type: BLOOD SPECIMENOrdering Facility: [facility] Address: [address] [place] [address] Performed By: #### 3 051-0, 61214-8, , 3024-03 ####[facility] LABCLIA [id number] [place] [address] [place] Creatinine and Glomerular filtration rate.predicted panel (S/P/Bld) 28 mL/min/1.73m??? Low >=60 [facility] Comment on above: Order Comment: Dylan olvera Type: BLOOD SPECIMENOrdering Facility: [facility] Address: [address] [place] [address] Result Comment: Etta mated Glomerular Filtration Rate [...] actual GFR. Performed By: #### 3 051-0, 75399-8, 91834-9, 3024-03 ####[facility] LABCLIA [id number] [place] [address] [place] Glucose [Mass/Vol] 107 mg/dL High 74-99 [facility] Comment on above: Order Comment: Dylan olvera Type: BLOOD SPECIMENOrdering Facility: [facility] Address: [address] [place] [address] Result Comment: The [place] Diabetes [employer] (ADA) provides guidance for cutoff [...] Standards of Medical Care in Diabetes 2016, [place] [employer]. Diabetes Care. 2016.39(Suppl 1). Performed By: #### 3 051-0, 80794-3, 63385-0, 3023-7 ####[facility] LABCLIA [id number] [place] [id number] [place] Potassium [Moles/Vol] 4.1 mmol/L Normal 3.7-5.1 [facility] Comment on above: Order Comment: Speci men Type: BLOOD SPECIMENOrdering Facility: [facility] Address: [address] [place] [address] Performed By: #### 3 051-0, 87064-4, 68341-1, 3024-7 ####[facility] LABCLIA [id number] [place] [address] [place] Sodium [Moles/Vol] 136 mmol/L Normal 136-144 [facility] Comment on above: Order Comment: Speci men Type: BLOOD SPECIMENOrdering Facility: [facility] Address: [address] [place] [address] Performed By: #### 3 051-0, 25197-5, 74957-3, 3024-7 ####[facility] LABCLIA [id number] [place] [address] [place] Urea nitrogen [Mass/Vol] 41 mg/dL High 9-24 [facility] Comment on above: Order Comment: Speci men Type: BLOOD SPECIMENOrdering Facility: [facility] Address: [address] [place] [address] Performed By: #### 3 051-0, 34052-4, 68059-5, 3024-7 ####[facility] LABCLIA [id number] [place] [address] [place] CBC panel Auto (Bld)on 09-19 Erythrocyte distribution width (RBC) [Ratio] 20.0 % High 11.5-15.0 [facility] Comment on above: Order Comment: Speci men Type: BLOOD SPECIMENOrdering Facility: [facility] Address: [address] [place] [address] Performed By: #### 5 8410-2 ####[facility] LABCLIA [id number] [place] [address] [place] Hematocrit (Bld) [Volume fraction] 33.3 % Low 39.0-51.0 [facility] Comment on above: Order Comment: Speci men Type: BLOOD SPECIMENOrdering Facility: [facility] Address: [address] [place] [address] Performed By: #### 5 8410-2 ####[facility] LABIA [id number] [place] [address] [place] Hemoglobin (Bld) [Mass/Vol] 9.9 g/dL Low 13.0-17.0 [facility] Comment on above: Order Comment: Speci men Type: BLOOD SPECIMENOrdering Facility: [facility] Address: [address] [place] [address] Performed By: #### 5 8410-2 ####[facility] [id number] [place] [address] [place] MCH (RBC) [Entitic mass] 26.4 pg Normal 26.0-34.0 [facility] Comment on above: Order Comment: Speci men Type: BLOOD SPECIMENOrdering Facility: [facility] Address: [address] [place] [address] Performed By: #### 5 8410-2 ####[facility] LABIA [id number] [place] [address] [place] MCHC (RBC) [Mass/Vol] 29.7 g/dL Low 30.5-36.0 [facility] Comment on above: Order Comment: Speci men Type: BLOOD SPECIMENOrdering Facility: [facility] Address: [address] [place] [address] Performed By: #### 5 8410-2 ####[facility] [id number] [place] [address] [place] MCV (RBC) [Entitic vol] 88.8 fL Normal 80.0-100.0 [facility] Comment on above: Order Comment: Speci men Type: BLOOD SPECIMENOrdering Facility: [facility] Address: [address] [place] [address] Performed By: #### 5 8410-2 ####[facility] LABCLIA [id number] [place] [address] [place] Nucleated RBC (Bld) [#/Vol] 10*3/uL Normal <0.01 [facility] Comment on above: Order Comment: Speci men Type: BLOOD SPECIMENOrdering Facility: [facility] Address: [address] [place] [address] Performed By: #### 5 8410-2 ####[facility] LABIA [id number] [place] [address] [place] Platelet mean volume (Bld) [Entitic vol] 9.7 fL Normal 9.0-12.7 [facility] Comment on above: Order Comment: Speci men Type: BLOOD SPECIMENOrdering Facility: [facility] Address: [address] [place] [address] Performed By: #### 5 8410-2 ####[facility] LABIA [id number] [place] [address] [place] Platelets (Bld) [#/Vol] 211 10*3/uL Normal 150-400 [facility] Comment on above: Order Comment: Speci men Type: BLOOD SPECIMENOrdering Facility: [facility] Address: [address] [place] [address] Performed By: #### 5 8410-2 ####[facility] LABCLIA [id number] [place] [address] [place] RBC (Bld) [#/Vol] 3.75 10*6/uL Low 4.20-6.00 [facility] Comment on above: Order Comment: Speci men Type: BLOOD SPECIMENOrdering Facility: [facility] Address: [address] [place] [address] Performed By: #### 5 8410-2 ####[facility] LABCLIA [id number] [place] [id number] [place] WBC (Bld) [#/Vol] 5.36 10*3/uL Normal 3.70-11.00 [facility] Comment on above: Order Comment: Speci men Type: BLOOD SPECIMENOrdering Facility: [facility] Address: [address] [place] [address] Performed By: #### 5 8410-2 ####[facility] LABIA [id number] [place] [address] [place] Lactate (Bld) [Moles/Vol]on 09-19-2024 Lactate [Moles/Vol] 1.9 mmol/L Normal 0.5-2.2 [facility] Comment on above: Order Comment: Speci men Type: BLOOD SPECIMENOrdering Facility: [facility] Address: [address] [place] [address] Performed By: #### 3 2693-4 ####[facility] [id number] [place] [address] [place] Magnesium SerPl-mCncon 09-19 Magnesium [Mass/Vol] 2.4 mg/dL High 1.7-2.3 [facility] Comment on above: Order Comment: Speci men Type: BLOOD SPECIMENOrdering Facility: [facility] Address: [address] [place] [address] Performed By: #### 3 051-0, 91590-9, 14827-1, 3024-7 ####[facility] [id number] [place] [id number] [place] NUTRITIONon 09-19-2024 NUTRITION Normal [facility] PT panel Coag (PPP)on 2024 INR Coag (PPP) [Relative time] 1.6 {INR} High 0.9-1.3 [facility] Comment on above: Order Comment: Speci men Type: BLOOD SPECIMENOrdering Facility: ST. [facility] Address: [address] [place] [address] Result Comment: Loulou min K Antagonist (VKA) Therapeutic Range: INR 2 to 3 (Target INR of 2.5)Note: For patients treated with VKA drugs, such as warfarin, the [place] [employer] 2012 Guideline recommends [...] of 3).Olamide CHAUHAN, et al. Chest 2012, 141:7S-47SJavier RA, et al. [facility] 2017, 70: 252-289 Performed By: #### 3 4528-0, 50294-4 ####[facility] LABCLIA [id number] [place] [address] [place] PT Coag (PPP) [Time] 17.1 s High 9.7-13.0 [facility] Comment on above: Order Comment: Speci men Type: BLOOD SPECIMENOrdering Facility: [facility] Address: [address] [place] [address] Performed By: #### 3 4528-0, 76865-3 ####[facility] LABCLIA [id number] [place] [address] [place] PTT, ANTICOAGULANT THERAPYon 09-19-2024 aPTT Coag (PPP) [Time] 108.5 s High 23.0-32.4 [facility] Comment on above: Order Comment: Speci men Type: BLOOD SPECIMENOrdering Facility: [facility] Address: [address] [place] [address] Result Comment: Resu lt rechecked.Sample checked for clot. Performed By: #### P TTAC ####[facility] LABCLIA [id number] [place] [address] [place] aPTT Coag (PPP) [Time] s High 23.0-32.4 [facility] Comment on above: Order Comment: Speci men Type: BLOOD SPECIMENOrdering Facility: [facility] Address: [address] [place] [address] Result Comment: Samp le checked for clot.Result rechecked. Performed By: #### P TTAC ####[facility] [id number] [place] [address] [place] T3Free SerPl-mCncon 09-19-19 25 Free T3 [Mass/Vol] 1.5 pg/mL Low 2.3-4.1 [facility] Comment on above: Order Comment: Speci men Type: BLOOD SPECIMENOrdering Facility: [facility] Address: [address] [place] [address] Performed By: #### 3 051-0, 21925-1, 01737-2, 3024-7 ####[facility] [id number] [place] [address] [place] T4 Free SerPl-mCncon 025 Free T4 [Mass/Vol] 1.0 ng/dL Normal 0.9-1.7 [facility] Comment on above: Order Comment: Speci men Type: BLOOD SPECIMENOrdering Facility: [facility] Address: [address] [place] [address] Performed By: #### 3 051-0, 39447-5, 41691-2, 3024-7 ####[facility] [id number] [place] [address] [place] aPTT PPPon 09-19-2024 aPTT Coag (PPP) [Time] 33.6 s High 23.0-32.4 [facility] Comment on above: Order Comment: Speci men Type: BLOOD SPECIMENOrdering Facility: [facility] Address: [address] [place] [address] Performed By: #### 3 4528-0, 94001-7 ####[facility] IRMA [id number] [facility] [place] [address] [place] CARDIAC IMPLANTABLE DEVICE C HECKOrdered By: Leeann Blount on 09-18-2024 Atrial Tachy Statistic AT/AF [place] Percent 33.00 [facility] Work Phone: [phone] Battery Status OK [facility] Work Phone: [phone] Bj Setting AT Mode Switch Rate 170 [facility] Work Phone: [phone] Bj Setting Lower Rate Limit 50 [facility] Work Phone: [phone] Bj Setting Maximum Sensor Rate 130 [facility] Work Phone: [phone] Bj Setting Maximum Tracking Rate 130 [facility] Work Phone: [phone] Bj Setting Mode (NBG Code) DDDR [facility] Work Phone: [phone] Bj Setting PAV Delay 200 [facility] Work Phone: [phone] Bj Setting ABDULLAHI Delay 170 [facility] Work Phone: [phone] Bj Statistic RA Percent Paced 2.00 [facility] Work Phone: [phone] Bj Statistic RV Percent Paced 8.00 [facility] Work Phone: [phone] Date Time Interrogation Session [facility] Work Phone: [phone] Implantable Lead Implant Date 20190324 [facility] Work Phone: [phone] Implantable Lead Implant Date 20190316 [facility] Work Phone: [phone] Implantable Lead Location Right Atrium [facility] Work Phone: [phone] Implantable Lead Location Right Ventricle [facility] Work Phone: [phone] Implantable Lead Model 7741 [employer]gevity MRI [facility] Work Phone: [phone] Implantable Lead Model 675 [facility] Work Phone: [phone] Implantable Lead Serial Number [id number] [facility] Work Phone: Implantable Lead Serial Number [id number] [facility] Work Phone: [phone] Implantable Pulse Generator Implant Date 20190324 [facility] Work Phone: [phone] Implantable Pulse Generator Asset Management Analyst [employer] [facility] Work Phone: [phone] Implantable Pulse Generator Model D142 [facility] Work Phone: [phone] Implantable Pulse Generator Serial Number [id number] [facility] Work Phone: [phone] Implantable Pulse Generator Type Defibrillator [facility] Work Phone: [phone] Lead Channel Impedance Value 652 [facility] Work Phone: [phone] Lead Channel Impedance Value 370 [facility] Work Phone: [phone] Lead Channel Sensing Intrinsic Amplitude 3.100 [facility] Work Phone: [phone] Lead Channel Sensing Intrinsic Amplitude 14.800 [facility] Work Phone: [phone] Lead Channel Setting Sensing Sensitivity 0.25 [facility] Work Phone: [phone] Lead Channel Setting Sensing Sensitivity 0.30 [facility] Work Phone: [phone] Rate 1 240 [facility] Work Phone: [phone] Rate 1 200 [facility] Work Phone: [phone] Rate 1 175 [facility] Work Phone: [phone] Shock Measured Impedance 32 [facility] Work Phone: [phone] Therapy Statistic Recent ATP Delivered 25 [facility] Work Phone: [phone] Therapy Statistic Recent Shocks Aborted 0 [facility] Work Phone: [phone] Therapy Statistic Recent Shocks Delivered 2 [facility] Work Phone: [phone] Zone ID 1 [facility] Work Phone: [phone] Zone ID 2 [facility] Work Phone: [phone] Zone ID 3 [facility] Work Phone: [phone] Zone Setting Type Category VF [facility] Work Phone: [phone] Zone Setting Type Category VT [facility] Work Phone: [phone] Zone Setting Type Category VT1 [facility] Work Phone: [facility] Work Phone: CARDIAC IMPLANTABLE DEVICE Marisa Sainz 09-18-2024 Leeann Blount MD - 09/18/2024 In-Office Device Evaluation DUAL LEAD ICD EVALUATION: *Room: [facility] * Presenting Rhythm: /VS * Underlying Rhythm: [...] Docket/PDF found below under Scanned Documents . [facility] CASE MGT INIT ASSESon 2024 CASE MGT INIT ASSES Normal [facility] CBC panel Auto (Bld)on 09-18 Erythrocyte distribution width (RBC) [Ratio] 19.9 % High 11.5-15.0 [facility] Comment on above: Order Comment: Speci men Type: BLOOD SPECIMENOrdering Facility: [facility] Address: [address] [place] [address] Performed By: #### 5 8410-2 ####[facility] LABCLIA [id number] [place] [address] [place] Hematocrit (Bld) [Volume fraction] 34.0 % Low 39.0-51.0 [facility] Comment on above: Order Comment: Speci men Type: BLOOD SPECIMENOrdering Facility: [facility] Address: [address] [place] [address] Performed By: #### 5 8410-2 ####[facility] LABIA [id number] [place] [address] [place] Hemoglobin (Bld) [Mass/Vol] 10.2 g/dL Low 13.0-17.0 [facility] Comment on above: Order Comment: Speci men Type: BLOOD SPECIMENOrdering Facility: [facility] Address: [address] [place] [address] Performed By: #### 5 8410-2 ####[facility] [id number] [place] [address] [place] MCH (RBC) [Entitic mass] 27.2 pg Normal 26.0-34.0 [facility] Comment on above: Order Comment: Speci men Type: BLOOD SPECIMENOrdering Facility: [facility] Address: [address] [place] [address] Performed By: #### 5 8410-2 ####[facility] [id number] [place] [address] [place] MCHC (RBC) [Mass/Vol] 30.0 g/dL Low 30.5-36.0 [facility] Comment on above: Order Comment: Speci men Type: BLOOD SPECIMENOrdering Facility: [facility] Address: [address] [place] [address] Performed By: #### 5 8410-2 ####[facility] LABIA [id number] [place] [address] [place] MCV (RBC) [Entitic vol] 90.7 fL Normal 80.0-100.0 [facility] Comment on above: Order Comment: Speci men Type: BLOOD SPECIMENOrdering Facility: [facility] Address: [address] [place] [address] Performed By: #### 5 8410-2 ####[facility] LABCLIA [id number] [place] [address] [place] Nucleated RBC (Bld) [#/Vol] 10*3/uL Normal <0.01 [facility] Comment on above: Order Comment: Speci men Type: BLOOD SPECIMENOrdering Facility: [facility] Address: [address] [place] [address] Performed By: #### 5 8410-2 ####[facility] LABIA [id number] [place] [address] [place] Platelet mean volume (Bld) [Entitic vol] 10.2 fL Normal 9.0-12.7 [facility] Comment on above: Order Comment: Speci men Type: BLOOD SPECIMENOrdering Facility: [facility] Address: [address] [place] [address] Performed By: #### 5 8410-2 ####[facility] LABIA [id number] [place] [address] [place] Platelets (Bld) [#/Vol] 223 10*3/uL Normal 150-400 [facility] Comment on above: Order Comment: Speci men Type: BLOOD SPECIMENOrdering Facility: [facility] Address: [address] [place] [address] Performed By: #### 5 8410-2 ####[facility] LABIA [id number] [place] [address] [place] RBC (Bld) [#/Vol] 3.75 10*6/uL Low 4.20-6.00 [facility] Comment on above: Order Comment: Speci men Type: BLOOD SPECIMENOrdering Facility: [facility] Address: [address] [place] [place] [address] Performed By: #### 5 8410-2 ####[facility] LABIA [id number] [place] [address] [place] WBC (Bld) [#/Vol] 5.36 10*3/uL Normal 3.70-11.00 [facility] Comment on above: Order Comment: Speci men Type: BLOOD SPECIMENOrdering Facility: [facility] Address: [address] [place] [place] [address] Performed By: #### 5 8410-2 ####[facility] LABCLIA [id number] [place] [address] [place] CONSULTon 09-18-2024 CONSULT Normal [facility] CONSULT Normal [facility] Comprehensive metabolic 2000 panelon 09-18-2024 Albumin [Mass/Vol] 3.4 g/dL Low 3.9-4.9 [facility] Comment on above: Order Comment: Speci men Type: BLOOD SPECIMENOrdering Facility: [facility] Address: [address] [place] [address] Performed By: #### 2 4323-8, 3015-3, ####[facility] LABCLIA [id number] [place] [id number] [place] ALP [Catalytic activity/Vol] 108 U/L Normal 38-113 [facility] Comment on above: Order Comment: Speci men Type: BLOOD SPECIMENOrdering Facility: [facility] Address: [address] [place] [address] Performed By: #### 2 4323-8, 3015-3, ####[facility] LABCLIA [id number] [place] [id number] [place] ALT [Catalytic activity/Vol] 17 U/L Normal 10-54 [facility] Comment on above: Order Comment: Speci men Type: BLOOD SPECIMENOrdering Facility: [facility] Address: [address] [place] [address] Performed By: #### 2 4323-8, 6-3, ####[facility] LABCLIA [id number] [place] [id number] [place] Anion gap [Moles/Vol] 14 mmol/L Normal 8-15 [facility] Comment on above: Order Comment: Speci men Type: BLOOD SPECIMENOrdering Facility: [facility] Address: [address] [place] [address] Performed By: #### 2 4323-8, 6-3, ####[facility] LABCLIA [id number] [place] [address] [place] AST [Catalytic activity/Vol] 25 U/L Normal 14-40 [facility] Comment on above: Order Comment: Speci men Type: BLOOD SPECIMENOrdering Facility: [facility] Address: [address] [place] [address] Performed By: #### 2 4323-8, 3015-3, ####[facility] LABCLIA [id number] [place] [address] [place] Bilirubin [Mass/Vol] 0.8 mg/dL Normal 0.2-1.3 [facility] Comment on above: Order Comment: Speci men Type: BLOOD SPECIMENOrdering Facility: [facility] Address: [address] [place] [address] Performed By: #### 2 4323-8, 3, ####[facility] LABCLIA [id number] [place] [address] [place] Calcium [Mass/Vol] 9.0 mg/dL Normal 8.5-10.2 [facility] Comment on above: Order Comment: Speci men Type: BLOOD SPECIMENOrdering Facility: [facility] Address: [address] [place] [address] Performed By: #### 2 4323-8, 3015-3, ####[facility] LABCLIA [id number] [address] [address] [place] Chloride [Moles/Vol] 101 mmol/L Normal 98-107 [facility] Comment on above: Order Comment: Speci men Type: BLOOD SPECIMENOrdering Facility: [facility] Address: [address] [place], [place] [address] Performed By: #### 2 4323-8, 3, ####[facility] LABCLIA [id number] [address] [address] [place] CO2 [Moles/Vol] 25 mmol/L Normal 22-30 [facility] Comment on above: Order Comment: Speci men Type: BLOOD SPECIMENOrdering Facility: [facility] Address: [address] [place] [place] [address] Performed By: #### 2 4323-8, 3, ####[facility] LABCLIA [id number] [address] [address] [place] Creatinine [Mass/Vol] 2.16 mg/dL High 0.73-1.22 [facility] Comment on above: Order Comment: Speci men Type: BLOOD SPECIMENOrdering Facility: [facility] Address: [address] [place] [place] [address] Performed By: #### 2 4323-8, 3, ####[facility] LABCLIA [id number] [address] [address] [place] Creatinine and Glomerular filtration rate.predicted panel (S/P/Bld) 30 mL/min/1.73m??? Low >=60 [facility] Comment on above: Order Comment: Speci men Type: BLOOD SPECIMENOrdering Facility: [facility] Address: [address] [place] [address] Result Comment: Etta mated Glomerular Filtration Rate [...] GFR. Performed By: #### 2 4323-8, 3, ####[facility] LABCLIA [id number] [address] [address] [place] Glucose [Mass/Vol] 99 mg/dL Normal 74-99 [facility] Comment on above: Order Comment: Speci men Type: BLOOD SPECIMENOrdering Facility: [facility] Address: [address] [place] [address] Result Comment: The [place] Diabetes Association (ADA) provides guidance for cutoff [...] Standards of Medical Care in Diabetes 2016, [place] [employer]. Diabetes Care. 2016.39(Suppl 1). Performed By: #### 2 4323-8, 3015-11, ####[facility] LABCLIA [id number] [place] [address] [place] Potassium [Moles/Vol] 3.9 mmol/L Normal 3.7-5.1 [facility] Comment on above: Order Comment: Speci men Type: BLOOD SPECIMENOrdering Facility: [facility] Address: [address] [place] [address] Performed By: #### 2 4323-8, 3015-11, ####[facility] LABIA [id number] [address] [address] [place] Protein [Mass/Vol] 6.5 g/dL Normal 6.3-8.0 [facility] Comment on above: Order Comment: Speci men Type: BLOOD SPECIMENOrdering Facility: [facility] Address: [address] [place], [place] [address] Performed By: #### 2 4323-8, 3015-3, ####[facility] LABCLIA [id number] [address] [address] [place] Sodium [Moles/Vol] 140 mmol/L Normal 136-144 [facility] Comment on above: Order Comment: Speci men Type: BLOOD SPECIMENOrdering Facility: [facility] Address: [address] [place], [place] [address] Performed By: #### 2 4323-8, 3015-3, ####[facility] LABCLIA [id number] [place] [address] [place] Urea nitrogen [Mass/Vol] 40 mg/dL High 9-24 [facility] Comment on above: Order Comment: Speci men Type: BLOOD SPECIMENOrdering Facility: [facility] Address: [address] [place], [place] [address] Performed By: #### 2 4323-8, 3, ####[facility] LABIA [id number] [place] [address] [place] ECG COMPLETEon 09-18-2024 ECG COMPLETE Normal [facility] HbA1c (Bld)on 09-18-2024 Average glucose Estimated from glycated hemoglobin (Bld) [Mass/Vol] 111 mg/dL Normal [facility] Comment on above: Order Comment: Speci men Type: BLOOD SPECIMENOrdering Facility: [facility] Address: [address] [place], [place] [address] Result Comment: eAG: (Estimated average glucose) is a calculated value from HgbA1c and is outside sales account representative of the average blood glucose level in the last 2-3 month period. Performed By: #### 5 5454-3 ####[facility] LABCLIA [id number] [place] [address] [place] HbA1c (Bld) [Mass fraction] 5.5 % Normal 4.3-5.6 [facility] Comment on above: Order Comment: Speci men Type: BLOOD SPECIMENOrdering Facility: [facility] Address: [address] [place] [place] [address] Result Comment: [place] Diabetes Association guidelines indicate that patients with HgbA1c in the range 5.7-6.4% are at increased risk for development of diabetes, and intervention by lifestyle modification may be beneficial. HgbA1c greater or equal to 6.5% is considered diagnostic of diabetes. Performed By: #### 5 5454-3 ####[facility] LABCLIA [id number] [address] [place] Magnesium SerPl-mCncon 09-18 Magnesium [Mass/Vol] 2.4 mg/dL High 1.7-2.3 [facility] Comment on above: Order Comment: Speci men Type: BLOOD SPECIMENOrdering Facility: [facility] Address: [address] [place] [address] Performed By: #### 2 4323-8, 3016-3, 89247-2 ####[facility] LABCLIA [id number] [address] [place] No Panel InformationOrdered By: Leeann Blount on 09-18-2024 Implantable Lead Connection Status Connected [facility] Work Phone: [phone] Implantable Lead Asset Management Analyst [employer] [facility] Work Phone: [phone] Lead Channel Setting Pacing Amplitude 2.000 [facility] Work Phone: [phone] Lead Channel Setting Pacing Pulse Width 0.5 [facility] Work Phone: [phone] Therapies 41J, 41J [facility] Work Phone: [phone] Zone Setting Status On [facility] Work Phone: [phone] TSH SerPl-aCncon 09-18-2024 TSH Qn 5.910 m[IU]/L High 0.270-4.200 [facility] Comment on above: Order Comment: Speci men Type: BLOOD SPECIMENOrdering Facility: [facility] Address: [address] [place] [address] Performed By: #### 2 4323-8, 3016-3, 07783-1 ####[facility] LABCLIA [id number] [place] [address] [place] URINALYSIS, DIPSTICK ONLYon 09-18-2024 Bilirubin Ql (U) Negative Normal Negative [facility] Comment on above: Order Comment: Speci men Type: URINE SPECIMENOrdering Facility: [facility] Address: [address] [place] [place] [address] Performed By: #### U A ####[facility] LABCLIA [id number] [place] [address] [place] Clarity (Unsp spec) Clear Normal Clear [facility] Comment on above: Order Comment: Speci men Type: URINE SPECIMENOrdering Facility: [facility] Address: [address] [place] [address] Performed By: #### U A ####[facility] LABCLIA [id number] [place] [address] [place] Color (U) Yellow Normal Yellow [facility] Comment on above: Order Comment: Speci men Type: URINE SPECIMENOrdering Facility: [facility] Address: [address] [place] [address] Performed By: #### U A ####[facility] LABCLIA [id number] [place] [address] [place] Glucose Test strip (U) [Mass/Vol] Negative Normal Negative [facility] Comment on above: Order Comment: Speci men Type: URINE SPECIMENOrdering Facility: [facility] Address: [address] [place] [place] [address] Performed By: #### U A ####[facility] LABCLIA [id number] [place] [address] [place] Hemoglobin Ql (U) Negative Normal Negative [facility] Comment on above: Order Comment: Speci men Type: URINE SPECIMENOrdering Facility: [facility] Address: [address] [place] [place] [address] Performed By: #### U A ####[facility] LABCLIA [id number] [place] [address] [place] Ketones Ql (U) Negative Normal Negative [facility] Comment on above: Order Comment: Speci men Type: URINE SPECIMENOrdering Facility: [facility] Address: [address] [place] [place] [address] Performed By: #### U A ####[facility] LABCLIA [id number] [place] [address] [place] Leukocyte esterase Test strip Ql (U) Negative Normal Negative [facility] Comment on above: Order Comment: Speci men Type: URINE SPECIMENOrdering Facility: [facility] Address: [address] [place] [address] Performed By: #### U A ####[facility] LABCLIA [id number] [place] [address] [place] Nitrite Ql (U) Negative Normal Negative [facility] Comment on above: Order Comment: Speci men Type: URINE SPECIMENOrdering Facility: [facility] Address: [address] [place] [place] [address] Performed By: #### U A ####[facility] LABCLIA [id number] [place] [address] [place] pH (U) 7.5 [pH] Normal <8.5 [facility] Comment on above: Order Comment: Speci men Type: URINE SPECIMENOrdering Facility: [facility] Address: [address] [place] [place] [address] Performed By: #### U A ####[facility] LABCLIA [id number] [place] [address] [place] Protein (U) [Mass/Vol] 1+ Abnormal Negative [facility] Comment on above: Order Comment: Speci men Type: URINE SPECIMENOrdering Facility: [facility] Address: [address] [place] [address] Performed By: #### U A ####[facility] LABIA [id number] [place] [address] [place] Specific gravity (U) [Rel density] 1.012 Normal 1.005-1.030 [facility] Comment on above: Order Comment: Speci men Type: URINE SPECIMENOrdering Facility: [facility] Address: [address] [place] [place] [address] Performed By: #### U A ####[facility] [id number] [place] [address] [place] Urobilinogen Ql (U) 1.0 EU/dL Normal 0.2-1.0 EU/dL [facility] Comment on above: Order Comment: Speci men Type: URINE SPECIMENOrdering Facility: [facility] Address: [address] [place] [address] Performed By: #### U A ####[facility] [id number] [place] [address] [place] CBC W Auto Differential pane l (Bld)on 09-17-2024 Basophils (Bld) [#/Vol] 0.03 10*3/uL Normal <0.11 [facility] Comment on above: Order Comment: Speci men Type: BLOOD SPECIMENOrdering Facility: [facility] Address: [address] [place] [address] Performed By: #### 5 7021-8 ####[facility] [id number] [place] [address] [place] Basophils/100 WBC (Bld) 0.5 % Normal [facility] Comment on above: Order Comment: Speci men Type: BLOOD SPECIMENOrdering Facility: [facility] Address: [address] [place], [place] [address] Performed By: #### 5 7021-8 ####[facility] LABCLIA [id number] [place] [address] [place] Differential cell count method Nom (Bld) Auto Normal [facility] Comment on above: Order Comment: Speci men Type: BLOOD SPECIMENOrdering Facility: [facility] Address: [address] [place] [address] Performed By: #### 5 7021-8 ####[facility] LABCLIA [id number] [place] [address] [place] Eosinophils (Bld) [#/Vol] 0.17 10*3/uL Normal <0.46 [facility] Comment on above: Order Comment: Speci men Type: BLOOD SPECIMENOrdering Facility: [facility] Address: [address] [place] [address] Performed By: #### 5 7021-8 ####[facility] LABIA [id number] [place] [address] [place] Eosinophils/100 WBC (Bld) 3.1 % Normal [facility] Comment on above: Order Comment: Speci men Type: BLOOD SPECIMENOrdering Facility: [facility] Address: [address] [place] [address] Performed By: #### 5 7021-8 ####[facility] LABIA [id number] [place] [address] [place] Erythrocyte distribution width (RBC) [Ratio] 19.9 % High 11.5-15.0 [facility] Comment on above: Order Comment: Speci men Type: BLOOD SPECIMENOrdering Facility: [facility] Address: [address] [place] [address] Performed By: #### 5 7021-8 ####[facility] LABCLIA [id number] [place] [address] [place] Hematocrit (Bld) [Volume fraction] 34.6 % Low 39.0-51.0 [facility] Comment on above: Order Comment: Speci men Type: BLOOD SPECIMENOrdering Facility: [facility] Address: [address] [place] [address] Performed By: #### 5 7021-8 ####[facility] LABCLIA [id number] [place] [address] [place] Hemoglobin (Bld) [Mass/Vol] 10.7 g/dL Low 13.0-17.0 [facility] Comment on above: Order Comment: Speci men Type: BLOOD SPECIMENOrdering Facility: [facility] Address: [address] [place] [address] Performed By: #### 5 7021-8 ####[facility] LABIA [id number] [place] [address] [place] Immature granulocytes (Bld) [#/Vol] 0.03 10*3/uL Normal <0.10 [facility] Comment on above: Order Comment: Speci men Type: BLOOD SPECIMENOrdering Facility: [facility] Address: [address] [place] [address] Performed By: #### 5 7021-8 ####[facility] LABIA [id number] [place] [address] [place] Immature granulocytes/100 WBC (Bld) 0.5 % Normal [facility] Comment on above: Order Comment: Speci men Type: BLOOD SPECIMENOrdering Facility: [facility] Address: [address] [place] [address] Performed By: #### 5 7021-8 ####[facility] LABIA [id number] [place] [address] [place] Lymphocytes (Bld) [#/Vol] 0.76 10*3/uL Low 1.00-4.00 [facility] Comment on above: Order Comment: Speci men Type: BLOOD SPECIMENOrdering Facility: [facility] Address: [address] [place] [address] Performed By: #### 5 7021-8 ####[facility] LABIA [id number] [place] [address] [place] Lymphocytes/100 WBC (Bld) 13.8 % Normal [facility] Comment on above: Order Comment: Speci men Type: BLOOD SPECIMENOrdering Facility: [facility] Address: [address] [place] [address] Performed By: #### 5 7021-8 ####[facility] LABIA [id number] [place] [address] [place] MCH (RBC) [Entitic mass] 27.6 pg Normal 26.0-34.0 [facility] Comment on above: Order Comment: Speci men Type: BLOOD SPECIMENOrdering Facility: [facility] Address: [address] [place] [address] Performed By: #### 5 7021-8 ####[facility] LABIA [id number] [place] [address] [place] MCHC (RBC) [Mass/Vol] 30.9 g/dL Normal 30.5-36.0 [facility] Comment on above: Order Comment: Speci men Type: BLOOD SPECIMENOrdering Facility: [facility] Address: [address] [place] [address] Performed By: #### 5 7021-8 ####[facility] LABIA [id number] [place] [address] [place] MCV (RBC) [Entitic vol] 89.2 fL Normal 80.0-100.0 [facility] Comment on above: Order Comment: Speci men Type: BLOOD SPECIMENOrdering Facility: [facility] Address: [address] [place] [address] Performed By: #### 5 7021-8 ####[facility] LABIA [id number] [place] [address] [place] Monocytes (Bld) [#/Vol] 0.55 10*3/uL Normal <0.87 [facility] Comment on above: Order Comment: Speci men Type: BLOOD SPECIMENOrdering Facility: [facility] Address: [address] [place] [address] Performed By: #### 5 7021-8 ####[facility] LABCLIA [id number] [place] [address] [place] Monocytes/100 WBC (Bld) 10.0 % Normal [facility] Comment on above: Order Comment: Speci men Type: BLOOD SPECIMENOrdering Facility: [facility] Address: [address] [place] [address] Performed By: #### 5 7021-8 ####[facility] LABCLIA [id number] [place] [address] [place] Neutrophils (Bld) [#/Vol] 3.97 10*3/uL Normal 1.45-7.50 [facility] Comment on above: Order Comment: Speci men Type: BLOOD SPECIMENOrdering Facility: [facility] Address: [address] [place] [address] Performed By: #### 5 7021-8 ####[facility] LABCLIA [id number] [place] [address] [place] Neutrophils/100 WBC (Bld) 72.1 % Normal [facility] Comment on above: Order Comment: Speci men Type: BLOOD SPECIMENOrdering Facility: [facility] Address: [address] [place] [address] Performed By: #### 5 7021-8 ####[facility] LABCLIA [id number] [place] [address] [place] Nucleated RBC (Bld) [#/Vol] 10*3/uL Normal <0.01 [facility] Comment on above: Order Comment: Speci men Type: BLOOD SPECIMENOrdering Facility: [facility] Address: [address] [place] [address] Performed By: #### 5 7021-8 ####[facility] LABCLIA [id number] [place] [address] [place] Nucleated RBC/100 WBC (Bld) [Ratio] 0.0 /100 WBC Normal [facility] Comment on above: Order Comment: Speci men Type: BLOOD SPECIMENOrdering Facility: [facility] Address: [address] [place] [address] Performed By: #### 5 7021-8 ####[facility] LABIA [id number] [place] [address] [place] Platelet mean volume (Bld) [Entitic vol] 9.7 fL Normal 9.0-12.7 [facility] Comment on above: Order Comment: Speci men Type: BLOOD SPECIMENOrdering Facility: [facility] Address: [address] [place] [address] Performed By: #### 5 7021-8 ####[facility] LABIA [id number] [place] [address] [place] Platelets (Bld) [#/Vol] 217 10*3/uL Normal 150-400 [facility] Comment on above: Order Comment: Speci men Type: BLOOD SPECIMENOrdering Facility: [facility] Address: [address] [place] [address] Performed By: #### 5 7021-8 ####[facility] LABCLIA [id number] [place] [address] [place] RBC (Bld) [#/Vol] 3.88 10*6/uL Low 4.20-6.00 [facility] Comment on above: Order Comment: Speci men Type: BLOOD SPECIMENOrdering Facility: [facility] Address: [address] [place] [address] Performed By: #### 5 7021-8 ####[facility] LABCLIA [id number] [address] [address] [place] WBC (Bld) [#/Vol] 5.51 10*3/uL Normal 3.70-11.00 [facility] Comment on above: Order Comment: Speci men Type: BLOOD SPECIMENOrdering Facility: [facility] Address: [address] [place] [address] Performed By: #### 5 7021-8 ####[facility] LABIA [id number] [place] [id number] [place] CNPNon 09-17-2024 CNPN Normal [facility] metabolic 2000 panelon 09-17-2024 Albumin [Mass/Vol] 3.4 g/dL Low 3.9-4.9 [facility] Comment on above: Order Comment: Speci men Type: BLOOD SPECIMENOrdering Facility: [facility] Address: [address] [place] [address] Performed By: #### 1 9123-9, 53258-3, 77308-3, [id number] ####[facility] LABIA [id number] [place] [address] [place] ALP [Catalytic activity/Vol] 102 U/L Normal 38-113 [facility] Comment on above: Order Comment: Speci men Type: BLOOD SPECIMENOrdering Facility: [facility] Address: [address] [place] [address] Performed By: #### 1 9123-9, 56442-1, 10344-9, [id number] ####[facility] LABCLIA [id number] [place] [id number] [place] ALT [Catalytic activity/Vol] 17 U/L Normal 10-54 [facility] Comment on above: Order Comment: Speci men Type: BLOOD SPECIMENOrdering Facility: [facility] Address: [address] [place] [address] Performed By: #### 1 9123-9, 89825-1, 03561-7, [id number] ####[facility] LABCLIA [id number] [address] [address] [place] Anion gap [Moles/Vol] 13 mmol/L Normal 8-15 [facility] Comment on above: Order Comment: Speci men Type: BLOOD SPECIMENOrdering Facility: [facility] Address: [address] [place] [address] Performed By: #### 1 9123-9, 18864-5, 13791-7, [id number] ####[facility] LABCLIA [id number] [address] [address] [place] AST [Catalytic activity/Vol] 24 U/L Normal 14-40 [facility] Comment on above: Order Comment: Speci men Type: BLOOD SPECIMENOrdering Facility: [facility] Address: [address] [place] [address] Performed By: #### 1 9123-9, 41792-1, 91291-5, [id number] ####[facility] LABCLIA [id number] [address] [address] [place] Bilirubin [Mass/Vol] 1.3 mg/dL Normal 0.2-1.3 [facility] Comment on above: Order Comment: Speci men Type: BLOOD SPECIMENOrdering Facility: [facility] Address: [address] [place] [address] Performed By: #### 1 9123-9, 52743-7, 04595-4, [id number] ####[facility] LABCLIA [id number] [address] [address] [place] Calcium [Mass/Vol] 9.1 mg/dL Normal 8.5-10.2 [facility] Comment on above: Order Comment: Speci men Type: BLOOD SPECIMENOrdering Facility: [facility] Address: [address] [place] [address] Performed By: #### 1 9123-9, 79400-8, 07729-4, [id number] ####[facility] LABCLIA [id number] [address] [address] [place] Chloride [Moles/Vol] 99 mmol/L Normal 98-107 [facility] Comment on above: Order Comment: Speci men Type: BLOOD SPECIMENOrdering Facility: [facility] Address: [address] [place] [address] Performed By: #### 1 9123-9, 96247-9, 13070-5, [id number] ####[facility] LABCLIA [id number] [place] [address] [place] CO2 [Moles/Vol] 27 mmol/L Normal 22-30 [facility] Comment on above: Order Comment: Speci men Type: BLOOD SPECIMENOrdering Facility: [facility] Address: [address] [place] [address] Performed By: #### 1 9123-9, 64461-1, 74090-9, [id number] ####[facility] LABCLIA [id number] [place] [address] [place] Creatinine [Mass/Vol] 2.04 mg/dL High 0.73-1.22 [facility] Comment on above: Order Comment: Speci men Type: BLOOD SPECIMENOrdering Facility: [facility] Address: [address] [place] [address] Performed By: #### 1 9123-9, 55466-5, 87430-5, [id number] ####[facility] LABCLIA [id number] [place] [address] [place] Creatinine and Glomerular filtration rate.predicted panel (S/P/Bld) 32 mL/min/1.73m??? Low >=60 [facility] Comment on above: Order Comment: Speci men Type: BLOOD SPECIMENOrdering Facility: [facility] Address: [address] [place] [address] Result Comment: Etta mated Glomerular Filtration Rate [...] actual GFR. Performed By: #### 1 9123-9, 59064-0, 71949-7, [id number] ####[facility] LABCLIA [id number] [address] [address] [place] Glucose [Mass/Vol] 92 mg/dL Normal 74-99 [facility] Comment on above: Order Comment: Speci men Type: BLOOD SPECIMENOrdering Facility: [facility] Address: [address] [place] [address] Result Comment: The [place] [employer] (ADA) provides guidance for cutoff [...] Standards of Medical Care in Diabetes 2016, [place] [employer]. Diabetes Care. 2016.39(Suppl 1). Performed By: #### 1 9123-9, 99130-0, 03965-0, [id number] ####[facility] LABCLIA [id number] [address] [address] [place] Potassium [Moles/Vol] 3.4 mmol/L Low 3.7-5.1 [facility] Comment on above: Order Comment: Dlyan olvera Type: BLOOD SPECIMENOrdering Facility: [facility] Address: [address] [place] [address] Performed By: #### 1 9123-9, 13702-8, 92238-4, [id number] ####[facility] LABCLIA [id number] [address] [address] [place] Protein [Mass/Vol] 6.8 g/dL Normal 6.3-8.0 [facility] Comment on above: Order Comment: Speci men Type: BLOOD SPECIMENOrdering Facility: [facility] Address: [address] [place] [address] Performed By: #### 1 9123-9, 29823-2, 00601-4, [id number] ####[facility] LABCLIA [id number] [place] [address] [place] Sodium [Moles/Vol] 139 mmol/L Normal 136-144 [facility] Comment on above: Order Comment: Speci men Type: BLOOD SPECIMENOrdering Facility: [facility] Address: [address] [place] [address] Performed By: #### 1 9123-9, 70709-8, 08732-5, [id number] ####[facility] LABIA [id number] [place] [address] [place] Urea nitrogen [Mass/Vol] 37 mg/dL High 9-24 [facility] Comment on above: Order Comment: Speci men Type: BLOOD SPECIMENOrdering Facility: [facility] Address: [address] [place] [address] Performed By: #### 1 9123-9, 36793-3, 97935-9, [id number] ####[facility] LABIA [id number] [address] [address] [place] ED NOTEon 09-17-2024 ED NOTE Normal [facility] ED NOTE HNO ID: [id number] Author: MATY PARKER RN Service: ? Author Type: Registered Nurse Type: ED Notes Filed: 09/17/2024 16:44 Note Text: Report called to Reyna CHRIS at this time. Normal [facility] ED NOTE Normal [facility] ED PROV NOTEon 09-17-2024 ED PROV NOTE Normal [facility] ED PROV NOTE Normal [facility] ED Triage Noteon 09-17-2024 ED Triage Note Normal [facility] HIGH SENSITIVITY TROPONIN T (INITIAL)on 09-17-2024 Troponin T.cardiac High sensitivity method [Mass/Vol] 79 ng/L High <12 [facility] Comment on above: Order Comment: Speci men Type: BLOOD SPECIMENOrdering Facility: [facility] Address: [address] [place] [address] Performed By: #### 1 9123-9, 45981-6, 64547-8, [id number] ####[facility] [id number] [place] [address] [place] HIGH SENSITIVITY TROPONIN T (SECOND)on 09-17-2024 Troponin T.cardiac High sensitivity method [Mass/Vol] 76 ng/L High <12 [facility] Comment on above: Order Comment: Speci men Type: BLOOD SPECIMENOrdering Facility: [facility] Address: [address] [place] [address] Performed By: #### L [id number] ####[facility] [id number] [place] [address] [place] HISTORY PHYSICALon HISTORY PHYSICAL Normal [facility] Magnesium SerPl-mCncon 09-17 Magnesium [Mass/Vol] 2.3 mg/dL Normal 1.7-2.3 [facility] Comment on above: Order Comment: Speci men Type: BLOOD SPECIMENOrdering Facility: [facility] Address: [address] [place] [address] Performed By: #### 1 9123-9, 98446-0, 34145-2, [id number] ####[facility] LABIA [id number] [place] [address] [place] NT-proBNP SerPl-mCncon 09-17 Natriuretic peptide.B prohormone N-Terminal [Mass/Vol] 18269 pg/mL High <450 [facility] Comment on above: Order Comment: Speci men Type: BLOOD SPECIMENOrdering Facility: [facility] Address: [address] [place] [address] Performed By: #### 1 9123-9, 53624-0, 39366-0, [id number] ####[facility] LABCLIA [id number] [place] [address] [place] TYPE + SCREENon 09-17-2024 ABO O Normal [facility] Comment on above: Order Comment: Speci men Type: BLOOD SPECIMENOrdering Facility: [facility] Address: [address] [place] [address] Performed By: #### T SCR ####[facility] BLOOD BANKCLIA [id number] [place] [address] [place] Rh Nom (Bld) Positive Normal [facility] Comment on above: Order Comment: Speci men Type: BLOOD SPECIMENOrdering Facility: [facility] Address: [address] [place] [address] Performed By: #### T SCR ####[facility] BLOOD BANKCLIA [id number] [place] [address] [place] TYPE AND SCREEN EXPIRATION 09/20/2024 23:59 Normal [facility] Comment on above: Order Comment: Speci men Type: BLOOD SPECIMENOrdering Facility: [facility] Address: [address] [place] [address] Performed By: #### T SCR ####[facility] BLOOD BANKCLIA [id number] [facility] [place] [address] [place] XR CHEST 1V FRONTAL PORTon 0 09-17-2024 XR CHEST 1V FRONTAL PORT Normal [facility] Bacteria Ur Culton 4 Bacteria identified Cx Nom (U) ORGANISM ID: 1 <10,000 CFU/ml Normal urogenital rohan Normal [facility] Comment on above: Performed By: #### 6 30-4 ####[facility] LABCLIA [id number] [facility] [address] [address] [place] Basic metabolic 2000 panelon 09-10-2024 Anion gap [Moles/Vol] 12 mmol/L Normal 8-15 [facility] Comment on above: Order Comment: Speci men Type: BLOOD SPECIMENOrdering Facility: [facility] Address: [address] [place] [address] Performed By: #### 2 4321-2 ####[facility] LABCLIA [id number] [place] [address] Calcium [Mass/Vol] 8.7 mg/dL Normal 8.5-10.2 [facility] Comment on above: Order Comment: Speci men Type: BLOOD SPECIMENOrdering Facility: [facility] Address: [address] [place] [address] Performed By: #### 2 4321-2 ####[facility] LABCLIA [id number] [place] [address] Chloride [Moles/Vol] 99 mmol/L Normal 98-107 [facility] Comment on above: Order Comment: Speci men Type: BLOOD SPECIMENOrdering Facility: [facility] Address: [address] [place] [address] Performed By: #### 2 4321-2 ####[facility] LABCLIA [id number] [place] [address] CO2 [Moles/Vol] 26 mmol/L Normal 22-30 [facility] Comment on above: Order Comment: Speci men Type: BLOOD SPECIMENOrdering Facility: [facility] Address: [address] [place] [address] Performed By: #### 2 4321-2 ####[facility] LABCLIA [id number] [place] [address] Creatinine [Mass/Vol] 2.53 mg/dL High 0.73-1.22 [facility] Comment on above: Order Comment: Speci men Type: BLOOD SPECIMENOrdering Facility: [facility] Address: [address] [place] [address] Performed By: #### 2 4321-2 ####[facility] LABCLIA [id number] [place] [address] Creatinine and Glomerular filtration rate.predicted panel (S/P/Bld) 25 mL/min/1.73m??? Low >=60 [facility] Comment on above: Order Comment: Dylan olvera Type: BLOOD SPECIMENOrdering Facility: [facility] Address: [address] [place] [address] Result Comment: Etta mated Glomerular Filtration Rate [...] actual GFR. Performed By: #### 2 4321-2 ####[facility] LABCLIA [id number] [place] [address] Glucose [Mass/Vol] 111 mg/dL High 74-99 [facility] Comment on above: Order Comment: Dylan olvera Type: BLOOD SPECIMENOrdering Facility: [facility] Address: [address] [place] [address] Result Comment: The [place] [employer] (ADA) provides guidance for cutoff [...] Standards of Medical Care in Diabetes 2016, [place] [employer]. Diabetes Care. 2016.39(Suppl 1). Performed By: #### 2 4321-2 ####[facility] LABCLIA [id number] [place] [address] Potassium [Moles/Vol] 3.9 mmol/L Normal 3.7-5.1 [facility] Comment on above: Order Comment: Speci men Type: BLOOD SPECIMENOrdering Facility: [facility] Address: [address] [place] [address] Performed By: #### 2 4321-2 ####[facility] LABCLIA [id number] [place] [address] Sodium [Moles/Vol] 137 mmol/L Normal 136-144 [facility] Comment on above: Order Comment: Speci men Type: BLOOD SPECIMENOrdering Facility: [facility] Address: [address] [place] [address] Performed By: #### 2 4321-2 ####[facility] LABCLIA [id number] [place] [address] Urea nitrogen [Mass/Vol] 57 mg/dL High 9-24 [facility] Comment on above: Order Comment: Speci men Type: BLOOD SPECIMENOrdering Facility: [facility] Address: [address] [place] [address] Performed By: #### 2 4321-2 ####[facility] LABCLIA [id number] [place] [address] CNPNon 09-10-2024 CNPN Normal [facility] Natriuretic peptide.B prohormone N-Terminal [Mass/Vol] 92500 pg/mL High <450 [facility] Comment on above: Order Comment: Speci men Type: BLOOD SPECIMENOrdering Facility: [facility] Address: [address] [place] [address] Performed By: #### 3 3762-6 ####[facility] LABCLIA [id number] [address] [address] [place] PSA SerPl-mCncon 09-10-2024 Prostate specific Ag [Mass/Vol] ng/mL Normal <2.60 [facility] Comment on above: Order Comment: Speci men Type: BLOOD SPECIMENOrdering Facility: [facility] Address: [address] [place] [address] Result Comment: Tota l PSA test methodology used is the Electrochemiluminescence Immunoassay by [employer]. Total PSA values by differing methodologies cannot be interchanged. Performed By: #### 2 857-1 ####[facility] LABCLIA [id number] [place] [address] [place] TESTOSTERONE, FREE AND TOTAL , BY EQUILIBRIUM ULTRAFILTRATION MASS SPECTROMETRYon 09-10-2024 Testosterone [Mass/Vol] 37.0 ng/dL Low 264.0-916.0 [facility] Comment on above: Order Comment: Speci men Type: BLOOD SPECIMENOrdering Facility: [facility] Address: [address] [place] [address] Result Comment: This [facility] LC/MS-MS method is currently certified by the CDCHormone Standardization Program (HoSt). Adult male referenceinterval is based on a population of healthy nonobese males(BMI <30) between 19 and 39 years old. Keisha, et.al. [id number],102;8607-9264. PMID: [id number]. Performed By: #### T FTEST ####[facility] LABCLIA [id number] [place] [address] Testosterone Free [Mass/Vol] 0.84 ng/dL Low 5.00-21.00 [facility] Comment on above: Order Comment: Speci men Type: BLOOD SPECIMENOrdering Facility: [facility] Address: [address] [place] [address] Performed By: #### T FTEST ####[facility] LABCLIA [id number] [place] [address] Testosterone Free/Testosterone.t otal [Mass fraction] 2.28 % Normal 1.50-4.20 [facility] Comment on above: Order Comment: Speci men Type: BLOOD SPECIMENOrdering Facility: [facility] Address: [address] [place] [address] Performed By: #### T FTEST ####[facility] LABCLIA [id number] [place] [address] Urinalysis complete panel (U )on 09-10-2024 Bacteria LM.HPF (Urine sed) [#/Area] Negative Normal Negative [facility] Comment on above: Order Comment: Speci men Type: URINE SPECIMENOrdering Facility: [facility] Address: [address] [place] [address] Performed By: #### 2 4356-8 ####[facility] LABCLIA [id number] [place] [address] [place] Bilirubin Ql (U) Negative Normal Negative [facility] Comment on above: Order Comment: Speci men Type: URINE SPECIMENOrdering Facility: [facility] Address: [address] [place] [address] Performed By: #### 2 4356-8 ####[facility] LABCLIA [id number] [place] [address] [place] Clarity (Unsp spec) Clear Normal Clear [facility] Comment on above: Order Comment: Speci men Type: URINE SPECIMENOrdering Facility: [facility] Address: [address] [place] [address] Performed By: #### 2 4356-8 ####[facility] LABCLIA [id number] [place] [address] [place] Color (U) Yellow Normal Yellow [facility] Comment on above: Order Comment: Speci men Type: URINE SPECIMENOrdering Facility: [facility] Address: [address] [place] [address] Performed By: #### 2 4356-8 ####[facility] LABCLIA [id number] [place] [address] [place] Epithelial cells LM.HPF (Urine sed) [#/Area] None Seen Normal [facility] Comment on above: Order Comment: Speci men Type: URINE SPECIMENOrdering Facility: [facility] Address: [facility] [place] [address] Performed By: #### 2 4356-8 ####[facility] LABCLIA [id number] [place] [address] [place] [address] [facility] Glucose Test strip (U) [Mass/Vol] Trace Abnormal Negative [facility] Comment on above: Order Comment: Speci men Type: URINE SPECIMENOrdering Facility: [facility] Address: [address] [place], [place] [address] Performed By: #### 2 4356-8 ####[facility] LABCLIA [id number] [place] [address] [place] Hemoglobin Ql (U) Negative Normal Negative [facility] Comment on above: Order Comment: Speci men Type: URINE SPECIMENOrdering Facility: [facility] Address: [address] [place] [address] Performed By: #### 2 4356-8 ####[facility] LABCLIA [id number] [place] [address] [place] Hyaline casts (Urine sed) [#/Area] 0 /[LPF] Normal 0 /LPF [facility] Comment on above: Order Comment: Speci men Type: URINE SPECIMENOrdering Facility: [facility] Address: [address] [place] [address] Performed By: #### 2 4356-8 ####[facility] LABCLIA [id number] [place] [id number] [place] Ketones Ql (U) Negative Normal Negative [facility] Comment on above: Order Comment: Speci men Type: URINE SPECIMENOrdering Facility: [facility] Address: [address] [place], [place] [address] Performed By: #### 2 4356-8 ####[facility] LABCLIA [id number] [address] [address] [place] Leukocyte esterase Test strip Ql (U) Negative Normal Negative [facility] Comment on above: Order Comment: Speci men Type: URINE SPECIMENOrdering Facility: [facility] Address: [address] [place] [address] Performed By: #### 2 4356-8 ####[facility] LABCLIA [id number] [place] [address] [place] Nitrite Ql (U) Negative Normal Negative [facility] Comment on above: Order Comment: Speci men Type: URINE SPECIMENOrdering Facility: [facility] Address: [address] [place] [address] Performed By: #### 2 4356-8 ####[facility] LABCLIA [id number] [place] [address] [place] pH (U) 7.0 [pH] Normal <8.5 [facility] Comment on above: Order Comment: Speci men Type: URINE SPECIMENOrdering Facility: [facility] Address: [address] [place] [address] Performed By: #### 2 4356-8 ####[facility] LABCLIA [id number] [place] [address] [place] Protein (U) [Mass/Vol] 1+ Abnormal Negative [facility] Comment on above: Order Comment: Speci men Type: URINE SPECIMENOrdering Facility: [facility] Address: [address] [place] [address] Performed By: #### 2 4356-8 ####[facility] LABCLIA [id number] [place] [address] [place] RBC LM.HPF (Urine sed) [#/Area] 0-2 /HPF Normal 0-2 /HPF [facility] Comment on above: Order Comment: Speci men Type: URINE SPECIMENOrdering Facility: [facility] Address: [address] [place] [address] Performed By: #### 2 4356-8 ####[facility] LABCLIA [id number] [place] [id number] [place] Specific gravity (U) [Rel density] 1.011 Normal 1.005-1.030 [facility] Comment on above: Order Comment: Speci men Type: URINE SPECIMENOrdering Facility: [facility] Address: [address] [place] [address] Performed By: #### 2 4356-8 ####[facility] LABIA [id number] [place] [id number] [place] Urobilinogen Ql (U) 0.2 EU/dL Normal 0.2-1.0 EU/dL [facility] Comment on above: Order Comment: Speci men Type: URINE SPECIMENOrdering Facility: [facility] Address: [address] [place] [address] Performed By: #### 2 4356-8 ####[facility] LABIA [id number] [place] [id number] [place] WBC LM.HPF (Urine sed) [#/Area] 0-5 /HPF Normal 0-5 /HPF [facility] Comment on above: Order Comment: Speci men Type: URINE SPECIMENOrdering Facility: [facility] Address: [address] [place] [address] Performed By: #### 2 4356-8 ####[facility] LABIA [id number] [place] [id number] [place] CNPNon 09-07-2024 CNPN Normal [facility] CNPNon 09-03-2024 CNPN Normal [facility] Basic metabolic 2000 panelon 08-31-2024 Anion gap [Moles/Vol] 16 mmol/L High 8-15 [facility] Comment on above: Order Comment: Speci men Type: BLOOD SPECIMENOrdering Facility: [facility] Address: [address] [place], [place] [address] Performed By: #### 2 4321-2 ####[facility] LABCLIA [id number] [place] [address] Calcium [Mass/Vol] 9.4 mg/dL Normal 8.5-10.2 [facility] Comment on above: Order Comment: Speci men Type: BLOOD SPECIMENOrdering Facility: [facility] Address: [address] [place] [address] Performed By: #### 2 4321-2 ####[facility] LABCLIA [id number] [place] [address] Chloride [Moles/Vol] 96 mmol/L Low 98-107 [facility] Comment on above: Order Comment: Speci men Type: BLOOD SPECIMENOrdering Facility: [facility] Address: [address] [place] [address] Performed By: #### 2 4321-2 ####[facility] LABCLIA [id number] [place] [address] CO2 [Moles/Vol] 22 mmol/L Normal 22-30 [facility] Comment on above: Order Comment: Speci men Type: BLOOD SPECIMENOrdering Facility: [facility] Address: [address] [place] [address] Performed By: #### 2 4321-2 ####[facility] LABCLIA [id number] [place] [address] Creatinine [Mass/Vol] 2.98 mg/dL High 0.73-1.22 [facility] Comment on above: Order Comment: Speci men Type: BLOOD SPECIMENOrdering Facility: [facility] Address: [address] [place] [address] Performed By: #### 2 4321-2 ####[facility] LABCLIA [id number] [place] [address] Creatinine and Glomerular filtration rate.predicted panel (S/P/Bld) 20 mL/min/1.73m??? Low >=60 [facility] Comment on above: Order Comment: Dylan olvera Type: BLOOD SPECIMENOrdering Facility: [facility] Address: [address] [place] [address] Result Comment: Etta mated Glomerular Filtration Rate [...] actual GFR. Performed By: #### 2 4321-2 ####[facility] LABCLIA [id number] [place] [address] Glucose [Mass/Vol] 112 mg/dL High 74-99 [facility] Comment on above: Order Comment: Dylan olvera Type: BLOOD SPECIMENOrdering Facility: [facility] Address: [address] [place] [address] Result Comment: The [place] Diabetes Association (ADA) provides guidance for cutoff [...] Standards of Medical Care in Diabetes 2016, [place] [employer]. Diabetes Care. 2016.39(Suppl 1). Performed By: #### 2 4321-2 ####[facility] LABCLIA [id number] [place] [address] Potassium [Moles/Vol] 4.3 mmol/L Normal 3.7-5.1 [facility] Comment on above: Order Comment: Dylan olvera Type: BLOOD SPECIMENOrdering Facility: [facility] Address: [address] [place] [address] Performed By: #### 2 4321-2 ####[facility] LABCLIA [id number] [place] [address] Sodium [Moles/Vol] 134 mmol/L Low 136-144 [facility] Comment on above: Order Comment: Speci men Type: BLOOD SPECIMENOrdering Facility: [facility] Address: [address] [place] [address] Performed By: #### 2 4321-2 ####[facility] LABCLIA [id number] [place] [address] Urea nitrogen [Mass/Vol] 71 mg/dL High 9-24 [facility] Comment on above: Order Comment: Speci men Type: BLOOD SPECIMENOrdering Facility: [facility] Address: [address] [place] [address] Performed By: #### 2 4321-2 ####[facility] LABCLIA [id number] [place] [id number] CBC W Auto Differential pane l (Bld)on 08-31-2024 Basophils (Bld) [#/Vol] 0.04 10*3/uL Normal <0.11 [facility] Comment on above: Order Comment: Speci men Type: BLOOD SPECIMENOrdering Facility: [facility] Address: [address] [place] [address] Performed By: #### 5 7021-8 ####[facility] LABCLIA [id number] [place] [id number] Basophils/100 WBC (Bld) 0.6 % Normal [facility] Comment on above: Order Comment: Speci men Type: BLOOD SPECIMENOrdering Facility: [facility] Address: [address] [place] [address] Performed By: #### 5 7021-8 ####[facility] LABCLIA [id number] [place] [address] Differential cell count method Nom (Bld) Auto Normal [facility] Comment on above: Order Comment: Speci men Type: BLOOD SPECIMENOrdering Facility: [facility] Address: [address] [place] [address] Performed By: #### 5 7021-8 ####[facility] LABCLIA [id number] [place] [address] Eosinophils (Bld) [#/Vol] 0.03 10*3/uL Normal <0.46 [facility] Comment on above: Order Comment: Speci men Type: BLOOD SPECIMENOrdering Facility: [facility] Address: [address] [place] [address] Performed By: #### 5 7021-8 ####[facility] LABCLIA [id number] [place] [address] Eosinophils/100 WBC (Bld) 0.5 % Normal [facility] Comment on above: Order Comment: Speci men Type: BLOOD SPECIMENOrdering Facility: [facility] Address: [address] [place] [address] Performed By: #### 5 7021-8 ####[facility] LABCLIA [id number] [place] [address] Erythrocyte distribution width (RBC) [Ratio] 18.5 % High 11.5-15.0 [facility] Comment on above: Order Comment: Speci men Type: BLOOD SPECIMENOrdering Facility: [facility] Address: [address] [place] [address] Performed By: #### 5 7021-8 ####[facility] LABCLIA [id number] [place] [address] Hematocrit (Bld) [Volume fraction] 33.8 % Low 39.0-51.0 [facility] Comment on above: Order Comment: Speci men Type: BLOOD SPECIMENOrdering Facility: [facility] Address: [address] [place] [address] Performed By: #### 5 7021-8 ####[facility] LABCLIA [id number] [place] [address] Hemoglobin (Bld) [Mass/Vol] 10.5 g/dL Low 13.0-17.0 [facility] Comment on above: Order Comment: Speci men Type: BLOOD SPECIMENOrdering Facility: [facility] Address: [address] [place] [address] Performed By: #### 5 7021-8 ####[facility] LABCLIA [id number] [place] [address] Immature granulocytes (Bld) [#/Vol] 10*3/uL Normal <0.10 [facility] Comment on above: Order Comment: Speci men Type: BLOOD SPECIMENOrdering Facility: [facility] Address: [address] [place] [address] Performed By: #### 5 7021-8 ####[facility] LABCLIA [id number] [place] [address] Immature granulocytes/100 WBC (Bld) 0.3 % Normal [facility] Comment on above: Order Comment: Speci men Type: BLOOD SPECIMENOrdering Facility: [facility] Address: [address] [place] [address] Performed By: #### 5 7021-8 ####[facility] LABCLIA [id number] [place] [address] Lymphocytes (Bld) [#/Vol] 0.74 10*3/uL Low 1.00-4.00 [facility] Comment on above: Order Comment: Speci men Type: BLOOD SPECIMENOrdering Facility: [facility] Address: [address] [place] [address] Performed By: #### 5 7021-8 ####[facility] LABCLIA [id number] [place] [address] Lymphocytes/100 WBC (Bld) 11.8 % Normal [facility] Comment on above: Order Comment: Speci men Type: BLOOD SPECIMENOrdering Facility: [facility] Address: [address] [place] [address] Performed By: #### 5 7021-8 ####[facility] LABCLIA [id number] [place] [address] MCH (RBC) [Entitic mass] 27.9 pg Normal 26.0-34.0 [facility] Comment on above: Order Comment: Speci men Type: BLOOD SPECIMENOrdering Facility: [facility] Address: [address] [place] [address] Performed By: #### 5 7021-8 ####[facility] LABCLIA [id number] [place] [address] MCHC (RBC) [Mass/Vol] 31.1 g/dL Normal 30.5-36.0 [facility] Comment on above: Order Comment: Speci men Type: BLOOD SPECIMENOrdering Facility: [facility] Address: [address] [place] [address] Performed By: #### 5 7021-8 ####[facility] LABCLIA [id number] [place] [address] MCV (RBC) [Entitic vol] 89.7 fL Normal 80.0-100.0 [facility] Comment on above: Order Comment: Speci men Type: BLOOD SPECIMENOrdering Facility: [facility] Address: [address] [place] [address] Performed By: #### 5 7021-8 ####[facility] LABCLIA [id number] [place] [address] Monocytes (Bld) [#/Vol] 0.75 10*3/uL Normal <0.87 [facility] Comment on above: Order Comment: Speci men Type: BLOOD SPECIMENOrdering Facility: [facility] Address: [address] [place] [address] Performed By: #### 5 7021-8 ####[facility] LABCLIA [id number] [place] [address] Monocytes/100 WBC (Bld) 11.9 % Normal [facility] Comment on above: Order Comment: Speci men Type: BLOOD SPECIMENOrdering Facility: [facility] Address: [address] [place] [address] Performed By: #### 5 7021-8 ####[facility] LABCLIA [id number] [place] [address] Neutrophils (Bld) [#/Vol] 4.71 10*3/uL Normal 1.45-7.50 [facility] Comment on above: Order Comment: Speci men Type: BLOOD SPECIMENOrdering Facility: [facility] Address: [address] [place] [address] Performed By: #### 5 7021-8 ####[facility] LABCLIA [id number] [place] [address] Neutrophils/100 WBC (Bld) 74.9 % Normal [facility] Comment on above: Order Comment: Speci men Type: BLOOD SPECIMENOrdering Facility: [facility] Address: [address] [place] [address] Performed By: #### 5 7021-8 ####[facility] LABCLIA [id number] [place] [address] Nucleated RBC (Bld) [#/Vol] 0.02 10*3/uL High <0.01 [facility] Comment on above: Order Comment: Speci men Type: BLOOD SPECIMENOrdering Facility: [facility] Address: [address] [place] [address] Performed By: #### 5 7021-8 ####[facility] LABCLIA [id number] [place] [address] Nucleated RBC/100 WBC (Bld) [Ratio] 0.3 /100 WBC Normal [facility] Comment on above: Order Comment: Speci men Type: BLOOD SPECIMENOrdering Facility: [facility] Address: [address] [place] [address] Performed By: #### 5 7021-8 ####[facility] LABCLIA [id number] [place] [address] Platelet mean volume (Bld) [Entitic vol] 10.4 fL Normal 9.0-12.7 [facility] Comment on above: Order Comment: Speci men Type: BLOOD SPECIMENOrdering Facility: [facility] Address: [address] [place] [address] Performed By: #### 5 7021-8 ####[facility] LABIA [id number] [place] [address] Platelets (Bld) [#/Vol] 195 10*3/uL Normal 150-400 [facility] Comment on above: Order Comment: Speci men Type: BLOOD SPECIMENOrdering Facility: [facility] Address: [address] [place] [address] Performed By: #### 5 7021-8 ####[facility] [id number] [place] [address] RBC (Bld) [#/Vol] 3.77 10*6/uL Low 4.20-6.00 [facility] Comment on above: Order Comment: Speci men Type: BLOOD SPECIMENOrdering Facility: [facility] Address: [address] [place] [address] Performed By: #### 5 7021-8 ####[facility] LABIA [id number] [place] [address] WBC (Bld) [#/Vol] 6.29 10*3/uL Normal 3.70-11.00 [facility] Comment on above: Order Comment: Speci men Type: BLOOD SPECIMENOrdering Facility: [facility] Address: [address] [place] [address] Performed By: #### 5 7021-8 ####[facility] LABIA [id number] [place] [address] NT-proBNP [facility] 08-31 Natriuretic peptide.B prohormone N-Terminal [Mass/Vol] 53050 pg/mL High <450 [facility] Comment on above: Order Comment: Speci men Type: BLOOD SPECIMENOrdering Facility: [facility] Address: [address] [place] [address] Performed By: #### 3 3762-6 ####[facility] LABCLIA [id number] [facility] [address] [address] [place] CNPNon 08-28-2024 CNPN Normal [facility] Basic metabolic 2000 panelon 08-19-2024 Anion gap [Moles/Vol] 14 mmol/L Normal 8-15 [facility] Comment on above: Order Comment: Speci men Type: BLOOD SPECIMENOrdering Facility: [facility] Address: [address] [place] [address] Performed By: #### 2 4321-2, 58248-7 ####[facility] LABCLIA [id number] [place] [address] [place] Calcium [Mass/Vol] 9.1 mg/dL Normal 8.5-10.2 [facility] Comment on above: Order Comment: Speci men Type: BLOOD SPECIMENOrdering Facility: [facility] Address: [address] [place] [address] Performed By: #### 2 4321-2, 09830-7 ####[facility] LABCLIA [id number] [facility] [place] [address] [place] Chloride [Moles/Vol] 100 mmol/L Normal 98-107 [facility] Comment on above: Order Comment: Speci men Type: BLOOD SPECIMENOrdering Facility: [facility] Address: [address] [place] [address] Performed By: #### 2 4321-2, 26476-1 ####[facility] LABCLIA [id number] [facility] [place] [id number] [place] CO2 [Moles/Vol] 28 mmol/L Normal 22-30 [facility] Comment on above: Order Comment: Speci men Type: BLOOD SPECIMENOrdering Facility: [facility] Address: [address] [place] [address] Performed By: #### 2 4321-2, 23562-8 ####[facility] LABIA [id number] [place] [address] [place] Creatinine [Mass/Vol] 2.05 mg/dL High 0.73-1.22 [facility] Comment on above: Order Comment: Speci men Type: BLOOD SPECIMENOrdering Facility: [facility] Address: [address] [place] [address] Performed By: #### 2 4321-2, 79715-0 ####[facility] LABIA [id number] [place] [address] [place] Creatinine and Glomerular filtration rate.predicted panel (S/P/Bld) 32 mL/min/1.73m??? Low >=60 [facility] Comment on above: Order Comment: Speci men Type: BLOOD SPECIMENOrdering Facility: [facility] Address: [address] [place] [address] Result Comment: Etta mated Glomerular Filtration Rate [...] actual GFR. Performed By: #### 2 4321-2, 21960-4 ####[facility] LABIA [id number] [place] [address] [place] Glucose [Mass/Vol] 99 mg/dL Normal 74-99 [facility] Comment on above: Order Comment: Speci men Type: BLOOD SPECIMENOrdering Facility: [facility] Address: [address] [place] [address] Result Comment: The [place] [employer] (ADA) provides guidance for cutoff [...] Standards of Medical Care in Diabetes 2016, [place] [employer]. Diabetes Care. 2016.39(Suppl 1). Performed By: #### 2 4321-2, 99715-9 ####[facility] LABCLIA [id number] [place] [address] [place] Potassium [Moles/Vol] 3.9 mmol/L Normal 3.7-5.1 [facility] Comment on above: Order Comment: Speci men Type: BLOOD SPECIMENOrdering Facility: [facility] Address: [address] [place] [address] Performed By: #### 2 4321-2, 66427-5 ####[facility] LABCLIA [id number] [place] [address] [place] Sodium [Moles/Vol] 142 mmol/L Normal 136-144 [facility] Comment on above: Order Comment: Speci men Type: BLOOD SPECIMENOrdering Facility: [facility] Address: [address] [place] [address] Performed By: #### 2 432-2, 91620-0 ####[facility] LABCLIA [id number] [place] [id number] [place] Urea nitrogen [Mass/Vol] 43 mg/dL High 9-24 [facility] Comment on above: Order Comment: Speci men Type: BLOOD SPECIMENOrdering Facility: [facility] Address: [address] [place] [address] Performed By: #### 2 4321-2, 60510-9 ####[facility] LABCLIA [id number] [place] [id number] [place] CBC W Auto Differential pane l (Bld)on 08-19-2024 Basophils (Bld) [#/Vol] 0.04 10*3/uL [facility] Basophils/100 WBC (Bld) 0.5 % [facility] Differential cell count method Nom (Bld) Auto [facility] Eosinophils (Bld) [#/Vol] 0.13 10*3/uL [facility] Eosinophils/100 WBC (Bld) 1.8 % [facility] Erythrocyte distribution width (RBC) [Ratio] 18.5 % High 11.5 - 15.0 % [facility] Hematocrit (Bld) [Volume fraction] 32.9 % Low 39.0 - 51.0 % [facility] Hemoglobin (Bld) [Mass/Vol] 10.3 g/dL Low 13.0 - 17.0 g/dL [facility] Immature granulocytes (Bld) [#/Vol] 0.04 10*3/uL [facility] Immature granulocytes/100 WBC (Bld) 0.5 % [facility] Interpretation and review of laboratory results Abnormal [facility] Lymphocytes (Bld) [#/Vol] 0.99 10*3/uL Low [facility] Lymphocytes/100 WBC (Bld) 13.6 % [facility] MCH (RBC) [Entitic mass] 28.5 pg 26.0 - 34.0 pg [facility] MCHC (RBC) [Mass/Vol] 31.3 g/dL 30.5 - 36.0 g/dL [facility] MCV (RBC) [Entitic vol] 90.9 fL 80.0 - 100.0 fL [facility] Monocytes (Bld) [#/Vol] 0.69 10*3/uL [facility] Monocytes/100 WBC (Bld) 9.5 % [facility] Neutrophils (Bld) [#/Vol] 5.40 10*3/uL [facility] Neutrophils/100 WBC (Bld) 74.1 % [facility] Nucleated RBC (Bld) [#/Vol] [facility] Nucleated RBC/100 WBC (Bld) [Ratio] 0.0 % /100 WBC [facility] Platelet mean volume (Bld) [Entitic vol] 10.3 fL 9.0 - 12.7 fL [facility] Platelets (Bld) [#/Vol] 192 10*3/uL [facility] RBC (Bld) [#/Vol] 3.62 10*6/uL Low 4.20 - 6.0 0 m/uL [facility] WBC (Bld) [#/Vol] 7.29 10*3/uL [facility] Basophils (Bld) [#/Vol] 0.04 10*3/uL Normal <0.11 [facility] Comment on above: Order Comment: Speci men Type: BLOOD SPECIMENOrdering Facility: [facility] Address: [address] [place] [address] Performed By: #### 5 7021-8 ####[facility] LABCLIA [id number] [place] [address] [place] Basophils/100 WBC (Bld) 0.5 % Normal [facility] Comment on above: Order Comment: Speci men Type: BLOOD SPECIMENOrdering Facility: [facility] Address: [address] [place] [address] Performed By: #### 5 7021-8 ####[facility] LABCLIA [id number] [place] [address] [place] Differential cell count method Nom (Bld) Auto Normal [facility] Comment on above: Order Comment: Speci men Type: BLOOD SPECIMENOrdering Facility: [facility] Address: [address] [place] [address] Performed By: #### 5 7021-8 ####[facility] LABCLIA [id number] [place] [address] [place] Eosinophils (Bld) [#/Vol] 0.13 10*3/uL Normal <0.46 [facility] Comment on above: Order Comment: Speci men Type: BLOOD SPECIMENOrdering Facility: [facility] Address: [address] [place] [address] Performed By: #### 5 7021-8 ####[facility] LABCLIA [id number] [place] [address] [place] Eosinophils/100 WBC (Bld) 1.8 % Normal [facility] Comment on above: Order Comment: Speci men Type: BLOOD SPECIMENOrdering Facility: [facility] Address: [address] [place] [address] Performed By: #### 5 7021-8 ####[facility] LABCLIA [id number] [place] [address] [place] Erythrocyte distribution width (RBC) [Ratio] 18.5 % High 11.5-15.0 [facility] Comment on above: Order Comment: Speci men Type: BLOOD SPECIMENOrdering Facility: [facility] Address: [address] [place] [address] Performed By: #### 5 7021-8 ####[facility] LABCLIA [id number] [place] [address] [place] Hematocrit (Bld) [Volume fraction] 32.9 % Low 39.0-51.0 [facility] Comment on above: Order Comment: Speci men Type: BLOOD SPECIMENOrdering Facility: [facility] Address: [address] [place] [address] Performed By: #### 5 7021-8 ####[facility] LABCLIA [id number] [place] [address] [place] Hemoglobin (Bld) [Mass/Vol] 10.3 g/dL Low 13.0-17.0 [facility] Comment on above: Order Comment: Speci men Type: BLOOD SPECIMENOrdering Facility: [facility] Address: [address] [place] [address] Performed By: #### 5 7021-8 ####[facility] LABCLIA [id number] [place] [address] [place] Immature granulocytes (Bld) [#/Vol] 0.04 10*3/uL Normal <0.10 [facility] Comment on above: Order Comment: Speci men Type: BLOOD SPECIMENOrdering Facility: [facility] Address: [address] [place] [address] Performed By: #### 5 7021-8 ####[facility] LABCLIA [id number] [place] [address] [place] Immature granulocytes/100 WBC (Bld) 0.5 % Normal [facility] Comment on above: Order Comment: Speci men Type: BLOOD SPECIMENOrdering Facility: [facility] Address: [address] [place] [address] Performed By: #### 5 7021-8 ####[facility] LABCLIA [id number] [place] [address] [place] Lymphocytes (Bld) [#/Vol] 0.99 10*3/uL Low 1.00-4.00 [facility] Comment on above: Order Comment: Speci men Type: BLOOD SPECIMENOrdering Facility: [facility] Address: [address] [place] [address] Performed By: #### 5 7021-8 ####[facility] LABCLIA [id number] [place] [address] [place] Lymphocytes/100 WBC (Bld) 13.6 % Normal [facility] Comment on above: Order Comment: Speci men Type: BLOOD SPECIMENOrdering Facility: [facility] Address: [address] [place] [address] Performed By: #### 5 7021-8 ####[facility] LABCLIA [id number] [place] [address] [place] MCH (RBC) [Entitic mass] 28.5 pg Normal 26.0-34.0 [facility] Comment on above: Order Comment: Speci men Type: BLOOD SPECIMENOrdering Facility: [facility] Address: [address] [place] [address] Performed By: #### 5 7021-8 ####[facility] LABCLIA [id number] [place] [address] [place] MCHC (RBC) [Mass/Vol] 31.3 g/dL Normal 30.5-36.0 [facility] Comment on above: Order Comment: Speci men Type: BLOOD SPECIMENOrdering Facility: [facility] Address: [address] [place] [address] Performed By: #### 5 7021-8 ####[facility] LABIA [id number] [place] [address] [place] MCV (RBC) [Entitic vol] 90.9 fL Normal 80.0-100.0 [facility] Comment on above: Order Comment: Speci men Type: BLOOD SPECIMENOrdering Facility: [facility] Address: [address] [place] [address] Performed By: #### 5 7021-8 ####[facility] LABIA [id number] [place] [address] [place] Monocytes (Bld) [#/Vol] 0.69 10*3/uL Normal <0.87 [facility] Comment on above: Order Comment: Speci men Type: BLOOD SPECIMENOrdering Facility: [facility] Address: [address] [place] [address] Performed By: #### 5 7021-8 ####[facility] LABIA [id number] [place] [address] [place] Monocytes/100 WBC (Bld) 9.5 % Normal [facility] Comment on above: Order Comment: Speci men Type: BLOOD SPECIMENOrdering Facility: [facility] Address: [address] [place] [address] Performed By: #### 5 7021-8 ####[facility] LABIA [id number] [place] [address] [place] Neutrophils (Bld) [#/Vol] 5.40 10*3/uL Normal 1.45-7.50 [facility] Comment on above: Order Comment: Speci men Type: BLOOD SPECIMENOrdering Facility: [facility] Address: [address] [place] [address] Performed By: #### 5 7021-8 ####[facility] LABCLIA [id number] [place] [address] [place] Neutrophils/100 WBC (Bld) 74.1 % Normal [facility] Comment on above: Order Comment: Speci men Type: BLOOD SPECIMENOrdering Facility: [facility] Address: [address] [place] [address] Performed By: #### 5 7021-8 ####[facility] LABIA [id number] [place] [address] [place] Nucleated RBC (Bld) [#/Vol] 10*3/uL Normal <0.01 [facility] Comment on above: Order Comment: Speci men Type: BLOOD SPECIMENOrdering Facility: [facility] Address: [address] [place] [address] Performed By: #### 5 7021-8 ####[facility] LABIA [id number] [place] [address] [place] Nucleated RBC/100 WBC (Bld) [Ratio] 0.0 /100 WBC Normal [facility] Comment on above: Order Comment: Speci men Type: BLOOD SPECIMENOrdering Facility: [facility] Address: [address] [place] [address] Performed By: #### 5 7021-8 ####[facility] LABIA [id number] [place] [address] [place] Platelet mean volume (Bld) [Entitic vol] 10.3 fL Normal 9.0-12.7 [facility] Comment on above: Order Comment: Speci men Type: BLOOD SPECIMENOrdering Facility: [facility] Address: [address] [place] [address] Performed By: #### 5 7021-8 ####[facility] LABIA [id number] [place] [address] [place] Platelets (Bld) [#/Vol] 192 10*3/uL Normal 150-400 [facility] Comment on above: Order Comment: Speci men Type: BLOOD SPECIMENOrdering Facility: [facility] Address: [address] [place] [address] Performed By: #### 5 7021-8 ####[facility] [id number] [place] [address] [place] RBC (Bld) [#/Vol] 3.62 10*6/uL Low 4.20-6.00 [facility] Comment on above: Order Comment: Speci men Type: BLOOD SPECIMENOrdering Facility: [facility] Address: [address] [place] [address] Performed By: #### 5 7021-8 ####[facility] [id number] [place] [address] [place] WBC (Bld) [#/Vol] 7.29 10*3/uL Normal 3.70-11.00 [facility] Comment on above: Order Comment: Speci men Type: BLOOD SPECIMENOrdering Facility: [facility] Address: [address] [place] [address] Performed By: #### 5 7021-8 ####[facility] [id number] [place] [id number] [place] CNCNPATEDon 08-19-2024 CNCNPATED Normal [facility] CNOVon 08-19-2024 CNOV Normal [facility] ECG COMPLETEon 08-19-2024 ECG COMPLETE Normal [facility] HOLTER MONITOR 48 HOURon HOLTER MONITOR 48 HOUR Normal [facility] NT-proBNP SerPl-mCncon 08-19 Natriuretic peptide.B prohormone N-Terminal [Mass/Vol] 41782 pg/mL High <450 [facility] Comment on above: Order Comment: Speci men Type: BLOOD SPECIMENOrdering Facility: [facility] Address: [address] [place] [address] Performed By: #### 2 4321-2, 55291-2 ####[facility] LABCLIA [id number] [place] [address] [place] CNPNon 08-18-2024 CNPN Normal [facility] CNPNon 08-17-2024 CNPN Normal [facility] CNPNon 08-14-2024 CNPN Normal [facility] CNPNon 08-03-2024 CNPN Normal [facility] CNPNon 07-30-2024 CNPN Normal [facility] CBC panel Auto (Bld)on 07-26 Erythrocyte distribution width (RBC) [Ratio] 17.2 % High 11.5-15.0 [facility] Comment on above: Order Comment: Speci men Type: BLOOD SPECIMENOrdering Facility: [facility] Address: [address] [place] [address] Performed By: #### 5 8410-2 ####[facility] LABIA [id number] [place] [address] [place] Hematocrit (Bld) [Volume fraction] 41.0 % Normal 39.0-51.0 [facility] Comment on above: Order Comment: Speci men Type: BLOOD SPECIMENOrdering Facility: [facility] Address: [address] [place] [address] Performed By: #### 5 8410-2 ####[facility] LABIA [id number] [place] [address] [place] Hemoglobin (Bld) [Mass/Vol] 12.5 g/dL Low 13.0-17.0 [facility] Comment on above: Order Comment: Speci men Type: BLOOD SPECIMENOrdering Facility: [facility] Address: [address] [place] [address] Performed By: #### 5 8410-2 ####[facility] [id number] [place] [address] [place] MCH (RBC) [Entitic mass] 27.7 pg Normal 26.0-34.0 [facility] Comment on above: Order Comment: Speci men Type: BLOOD SPECIMENOrdering Facility: [facility] Address: [address] [place] [address] Performed By: #### 5 8410-2 ####[facility] [id number] [place] [address] [place] MCHC (RBC) [Mass/Vol] 30.5 g/dL Normal 30.5-36.0 [facility] Comment on above: Order Comment: Speci men Type: BLOOD SPECIMENOrdering Facility: [facility] Address: [address] [place] [address] Performed By: #### 5 8410-2 ####[facility] [id number] [place] [address] [place] MCV (RBC) [Entitic vol] 90.7 fL Normal 80.0-100.0 [facility] Comment on above: Order Comment: Speci men Type: BLOOD SPECIMENOrdering Facility: [facility] Address: [address] [place] [address] Performed By: #### 5 8410-2 ####[facility] [id number] [place] [address] [place] Nucleated RBC (Bld) [#/Vol] 10*3/uL Normal <0.01 [facility] Comment on above: Order Comment: Speci men Type: BLOOD SPECIMENOrdering Facility: [facility] Address: [address] [place] [address] Performed By: #### 5 8410-2 ####[facility] [id number] [place] [address] [place] Platelet mean volume (Bld) [Entitic vol] 10.9 fL Normal 9.0-12.7 [facility] Comment on above: Order Comment: Speci men Type: BLOOD SPECIMENOrdering Facility: [facility] Address: [address] [place] [address] Performed By: #### 5 8410-2 ####[facility] LABCLIA [id number] [place] [address] [place] Platelets (Bld) [#/Vol] 158 10*3/uL Normal 150-400 [facility] Comment on above: Order Comment: Speci men Type: BLOOD SPECIMENOrdering Facility: [facility] Address: [address] [place] [address] Performed By: #### 5 8410-2 ####[facility] LABCLIA [id number] [place] [address] [place] RBC (Bld) [#/Vol] 4.52 10*6/uL Normal 4.20-6.00 [facility] Comment on above: Order Comment: Speci men Type: BLOOD SPECIMENOrdering Facility: [facility] Address: [address] [place] [address] Performed By: #### 5 8410-2 ####[facility] LABCLIA [id number] [place] [address] [place] WBC (Bld) [#/Vol] 5.57 10*3/uL Normal 3.70-11.00 [facility] Comment on above: Order Comment: Speci men Type: BLOOD SPECIMENOrdering Facility: [facility] Address: [address] [place] [address] Performed By: #### 5 8410-2 ####[facility] LABCLIA [id number] [place] [id number] [place] CNDSon 07-26-2024 CNDS Normal [facility] Comprehensive metabolic 2000 panelon 07-26-2024 Albumin [Mass/Vol] 3.3 g/dL Low 3.9-4.9 [facility] Comment on above: Order Comment: Speci men Type: BLOOD SPECIMENOrdering Facility: [facility] Address: [address] [place] [address] Performed By: #### 1 9123-9, 98458-3 ####[facility] LABCLIA [id number] [facility] [place] [address] [place] ALP [Catalytic activity/Vol] 86 U/L Normal 38-113 [facility] Comment on above: Order Comment: Speci men Type: BLOOD SPECIMENOrdering Facility: [facility] Address: [address] [place] [address] Performed By: #### 1 9123-9, 56362-8 ####[facility] LABCLIA [id number] [place] [address] [place] ALT [Catalytic activity/Vol] 15 U/L Normal 10-54 [facility] Comment on above: Order Comment: Speci men Type: BLOOD SPECIMENOrdering Facility: [facility] Address: [address] [place] [address] Performed By: #### 1 9123-9, 24095-4 ####[facility] LABCLIA [id number] [place] [address] [place] Anion gap [Moles/Vol] 10 mmol/L Normal 8-15 [facility] Comment on above: Order Comment: Speci men Type: BLOOD SPECIMENOrdering Facility: [facility] Address: [address] [place] [address] Performed By: #### 1 9123-9, 30643-6 ####[facility] LABCLIA [id number] [place] [address] [place] AST [Catalytic activity/Vol] 26 U/L Normal 14-40 [facility] Comment on above: Order Comment: Speci men Type: BLOOD SPECIMENOrdering Facility: [facility] Address: [address], [place] [address] Result Comment: Resu lts may be falsely increased due to interference from hemolysis. Suggest reorder as clinically indicated. Performed By: #### 1 23-9, ####[facility] LABCLIA [id number] [place] [address] [place] Bilirubin [Mass/Vol] 0.8 mg/dL Normal 0.2-1.3 [facility] Comment on above: Order Comment: Speci men Type: BLOOD SPECIMENOrdering Facility: [facility] Address: [address] [place] [address] Performed By: #### 1 23-9, ####[facility] LABCLIA [id number] [place] [address] [place] Calcium [Mass/Vol] 8.8 mg/dL Normal 8.5-10.2 [facility] Comment on above: Order Comment: Speci men Type: BLOOD SPECIMENOrdering Facility: [facility] Address: [address] [place] [address] Performed By: #### 1 239, ####[facility] LABIA [id number] [place] [address] [place] Chloride [Moles/Vol] 101 mmol/L Normal 98-107 [facility] Comment on above: Order Comment: Speci men Type: BLOOD SPECIMENOrdering Facility: [facility] Address: [address] [place] [address] Performed By: #### 1 23-9, 92296-1 ####[facility] LABCLIA [id number] [place] [id number] [place] CO2 [Moles/Vol] 30 mmol/L Normal 22-30 [facility] Comment on above: Order Comment: Speci men Type: BLOOD SPECIMENOrdering Facility: [facility] Address: [address] [place] [address] Performed By: #### 1 23-9, 93546-3 ####[facility] LABIA [id number] [place] [id number] [place] Creatinine [Mass/Vol] 2.02 mg/dL High 0.73-1.22 [facility] Comment on above: Order Comment: Dylan olvera Type: BLOOD SPECIMENOrdering Facility: [facility] Address: [address] [place] [address] Performed By: #### 1 9123-9, ####[facility] LABIA [id number] [place] [address] [place] Creatinine and Glomerular filtration rate.predicted panel (S/P/Bld) 32 mL/min/1.73m??? Low >=60 [facility] Comment on above: Order Comment: [facility] Type: BLOOD SPECIMENOrdering Facility: [facility] Address: [address] [place] [address] Result Comment: Etta mated Glomerular Filtration Rate [...] actual GFR. Performed By: #### 1 9123-9, 01228-0 ####[facility] LABIA [id number] [place] [id number] [place] Glucose [Mass/Vol] 121 mg/dL High 74-99 [facility] Comment on above: Order Comment: Dylan olvera Type: BLOOD SPECIMENOrdering Facility: [facility] Address: [address] [place] [address] Result Comment: The [place] [employer] (ADA) provides guidance for cutoff [...] Standards of Medical Care in Diabetes 2016, [place] [employer]. Diabetes Care. 2016.39(Suppl 1). Performed By: #### 1 9123-9, ####[facility] LABCLIA [id number] [place] [address] [place] Potassium [Moles/Vol] 4.2 mmol/L Normal 3.7-5.1 [facility] Comment on above: Order Comment: Speci men Type: BLOOD SPECIMENOrdering Facility: [facility] Address: [address] [place] [address] Performed By: #### 1 9, ####[facility] LABCLIA [id number] [place] [address] [place] Protein [Mass/Vol] 6.2 g/dL Low 6.3-8.0 [facility] Comment on above: Order Comment: Speci men Type: BLOOD SPECIMENOrdering Facility: [facility] Address: [address] [place] [address] Performed By: #### 1 239, ####[facility] LABCLIA [id number] [place] [address] [place] Sodium [Moles/Vol] 141 mmol/L Normal 136-144 [facility] Comment on above: Order Comment: Speci men Type: BLOOD SPECIMENOrdering Facility: [facility] Address: [address] [place] [address] Performed By: #### 1 239, ####[facility] LABCLIA [id number] [place] [id number] [place] Urea nitrogen [Mass/Vol] 40 mg/dL High 9-24 [facility] Comment on above: Order Comment: Speci men Type: BLOOD SPECIMENOrdering Facility: [facility] Address: [address] [place] [address] Performed By: #### 1 9123-9, 37305-1 ####[facility] LABCLIA [id number] [address] [address] [place] Magnesium SerPl-mCncon 07-26 Magnesium [Mass/Vol] 2.5 mg/dL High 1.7-2.3 [facility] Comment on above: Order Comment: Speci men Type: BLOOD SPECIMENOrdering Facility: [facility] Address: [address] [place] [address] Performed By: #### 1 9123-9, 44467-0 ####[facility] LABCLIA [id number] [place] [address] [place] PT EDon 07-26-2024 PT ED Normal [facility] [facility]ER[facility]Y NTon 07-26-2024 THERAPY NT Normal [facility] Basic metabolic 2000 panelon 07-25-2024 Anion gap [Moles/Vol] 13 mmol/L Normal 8-15 [facility] Comment on above: Order Comment: Speci men Type: BLOOD SPECIMENOrdering Facility: [facility] Address: [address] [place] [place] [address] Performed By: #### 1 9123-9, 77794-3 ####[facility] LABCLIA [id number] [place] [address] [place] Calcium [Mass/Vol] 8.9 mg/dL Normal 8.5-10.2 [facility] Comment on above: Order Comment: Speci men Type: BLOOD SPECIMENOrdering Facility: [facility] Address: [address] [place] [address] Performed By: #### 1 9123-9, 32540-8 ####[facility] LABCLIA [id number] [place] [address] [place] Chloride [Moles/Vol] 99 mmol/L Normal 98-107 [facility] Comment on above: Order Comment: Speci men Type: BLOOD SPECIMENOrdering Facility: [facility] Address: [address] [place] [address] Performed By: #### 1 9123-9, 70513-4 ####[facility] LABCLIA [id number] [place] [address] [place] CO2 [Moles/Vol] 29 mmol/L Normal 22-30 [facility] Comment on above: Order Comment: Speci men Type: BLOOD SPECIMENOrdering Facility: [facility] Address: [address] [place] [address] Performed By: #### 1 9123-9, 03166-1 ####[facility] LABIA [id number] [place] [address] [place] Creatinine [Mass/Vol] 1.99 mg/dL High 0.73-1.22 [facility] Comment on above: Order Comment: Speci men Type: BLOOD SPECIMENOrdering Facility: [facility] Address: [address] [place] [address] Performed By: #### 1 9123-9, 47061-7 ####[facility] LABIA [id number] [place] [address] [place] Creatinine and Glomerular filtration rate.predicted panel (S/P/Bld) 33 mL/min/1.73m??? Low >=60 [facility] Comment on above: Order Comment: Speci men Type: BLOOD SPECIMENOrdering Facility: [facility] Address: [address] [place] [address] Result Comment: Etta mated Glomerular Filtration Rate [...] actual GFR. Performed By: #### 1 9123-9, 50225-8 ####[facility] LABCLIA [id number] [place] [address] [place] Glucose [Mass/Vol] 92 mg/dL Normal 74-99 [facility] Comment on above: Order Comment: Speci men Type: BLOOD SPECIMENOrdering Facility: [facility] Address: [address] [place] [address] Result Comment: The [place] [employer] (ADA) provides guidance for cutoff [...] Standards of Medical Care in Diabetes 2016, [place] [employer]. Diabetes Care. 2016.39(Suppl 1). Performed By: #### 1 9123-9, 10062-8 ####[facility] LABIA [id number] [place] [address] [place] Potassium [Moles/Vol] 3.2 mmol/L Low 3.7-5.1 [facility] Comment on above: Order Comment: Speci men Type: BLOOD SPECIMENOrdering Facility: [facility] Address: [address] [place] [address] Performed By: #### 1 9123-9, 46540-6 ####[facility] LABIA [id number] [place] [address] [place] Sodium [Moles/Vol] 141 mmol/L Normal 136-144 [facility] Comment on above: Order Comment: Speci men Type: BLOOD SPECIMENOrdering Facility: [facility] Address: [address] [place] [id number] Performed By: #### 1 9123-9, 91599-7 ####[facility] LABCLIA [id number] [place] [address] [place] Urea nitrogen [Mass/Vol] 40 mg/dL High 9-24 [facility] Comment on above: Order Comment: Speci men Type: BLOOD SPECIMENOrdering Facility: [facility] Address: [address] [place] [address] Performed By: #### 1 9123-9, 34837-5 ####[facility] LABIA [id number] [place] [address] [place] CBC panel Auto (Bld)on 07-25 Erythrocyte distribution width (RBC) [Ratio] 17.3 % High 11.5-15.0 [facility] Comment on above: Order Comment: Speci men Type: BLOOD SPECIMENOrdering Facility: [facility] Address: [address] [place] [address] Performed By: #### 5 8410-2 ####[facility] LABCLIA [id number] [place] [address] [place] Hematocrit (Bld) [Volume fraction] 41.7 % Normal 39.0-51.0 [facility] Comment on above: Order Comment: Speci men Type: BLOOD SPECIMENOrdering Facility: [facility] Address: [address] [place] [address] Performed By: #### 5 8410-2 ####[facility] LABCLIA [id number] [place] [address] [place] Hemoglobin (Bld) [Mass/Vol] 12.8 g/dL Low 13.0-17.0 [facility] Comment on above: Order Comment: Speci men Type: BLOOD SPECIMENOrdering Facility: [facility] Address: [address] [place] [address] Performed By: #### 5 8410-2 ####[facility] LABCLIA [id number] [place] [address] [place] MCH (RBC) [Entitic mass] 27.9 pg Normal 26.0-34.0 [facility] Comment on above: Order Comment: Speci men Type: BLOOD SPECIMENOrdering Facility: [facility] Address: [address] [place] [address] Performed By: #### 5 8410-2 ####[facility] LABIA [id number] [place] [address] [place] MCHC (RBC) [Mass/Vol] 30.7 g/dL Normal 30.5-36.0 [facility] Comment on above: Order Comment: Speci men Type: BLOOD SPECIMENOrdering Facility: [facility] Address: [address] [place] [address] Performed By: #### 5 8410-2 ####[facility] [id number] [place] [address] [place] MCV (RBC) [Entitic vol] 91.0 fL Normal 80.0-100.0 [facility] Comment on above: Order Comment: Speci men Type: BLOOD SPECIMENOrdering Facility: [facility] Address: [address] [place] [address] Performed By: #### 5 8410-2 ####[facility] [id number] [place] [address] [place] Nucleated RBC (Bld) [#/Vol] 10*3/uL Normal <0.01 [facility] Comment on above: Order Comment: Speci men Type: BLOOD SPECIMENOrdering Facility: [facility] Address: [address] [place] [address] Performed By: #### 5 8410-2 ####[facility] [id number] [place] [address] [place] Platelet mean volume (Bld) [Entitic vol] 10.4 fL Normal 9.0-12.7 [facility] Comment on above: Order Comment: Speci men Type: BLOOD SPECIMENOrdering Facility: [facility] Address: [address] [place] [address] Performed By: #### 5 8410-2 ####[facility] LABCLIA [id number] [place] [address] [place] Platelets (Bld) [#/Vol] 150 10*3/uL Normal 150-400 [facility] Comment on above: Order Comment: Speci men Type: BLOOD SPECIMENOrdering Facility: [facility] Address: [address] [place] [address] Performed By: #### 5 8410-2 ####[facility] LABCLIA [id number] [place] [address] [place] RBC (Bld) [#/Vol] 4.58 10*6/uL Normal 4.20-6.00 [facility] Comment on above: Order Comment: Speci men Type: BLOOD SPECIMENOrdering Facility: [facility] Address: [address] [place] [address] Performed By: #### 5 8410-2 ####[facility] LABIA [id number] [place] [address] [place] WBC (Bld) [#/Vol] 5.10 10*3/uL Normal 3.70-11.00 [facility] Comment on above: Order Comment: Speci men Type: BLOOD SPECIMENOrdering Facility: [facility] Address: [address] [place] [address] Performed By: #### 5 8410-2 ####[facility] LABIA [id number] [place] [address] [place] Magnesium SerPl-mCncon 07-25 Magnesium [Mass/Vol] 2.3 mg/dL Normal 1.7-2.3 [facility] Comment on above: Order Comment: Speci men Type: BLOOD SPECIMENOrdering Facility: [facility] Address: [address] [place] [address] Performed By: #### 1 9123-9, 51647-4 ####[facility] LABCLIA [id number] [facility] [address] [address] [place] NUTRITIONon 07-25-2024 NUTRITION Normal [facility] PT EDon 07-25-2024 PT ED Normal [facility] Basic metabolic 2000 panelon 07-24-2024 Anion gap [Moles/Vol] 15 mmol/L Normal 8-15 [facility] Comment on above: Order Comment: Speci men Type: BLOOD SPECIMENOrdering Facility: [facility] Address: [address] [place], [place] [address] Performed By: #### 2 4321-2, ####[facility] LABCLIA [id number] [place] [address] [place] Calcium [Mass/Vol] 8.6 mg/dL Normal 8.5-10.2 [facility] Comment on above: Order Comment: Speci men Type: BLOOD SPECIMENOrdering Facility: [facility] Address: [address] [place] [address] Performed By: #### 2 4321-2, ####[facility] LABCLIA [id number] [facility] [place] [id number] [place] Chloride [Moles/Vol] 100 mmol/L Normal 98-107 [facility] Comment on above: Order Comment: Speci men Type: BLOOD SPECIMENOrdering Facility: [facility] Address: [address] [place] [address] Performed By: #### 2 4321-2, ####[facility] LABCLIA [id number] [facility] [address] [address] [place] CO2 [Moles/Vol] 25 mmol/L Normal 22-30 [facility] Comment on above: Order Comment: Speci men Type: BLOOD SPECIMENOrdering Facility: [facility] Address: [address] [place] [address] Performed By: #### 2 432-2, ####[facility] LABIA [id number] [place] [id number] [place] Creatinine [Mass/Vol] 1.96 mg/dL High 0.73-1.22 [facility] Comment on above: Order Comment: Speci men Type: BLOOD SPECIMENOrdering Facility: [facility] Address: [address] [place] [address] Performed By: #### 2 432-2, ####[facility] [id number] [place] [address] [place] Creatinine and Glomerular filtration rate.predicted panel (S/P/Bld) 34 mL/min/1.73m??? Low >=60 [facility] Comment on above: Order Comment: Speci men Type: BLOOD SPECIMENOrdering Facility: [facility] Address: [address] [place] [address] Result Comment: Etta mated Glomerular Filtration Rate [...] reflect actual GFR. Performed By: #### 2 432-2, ####[facility] LABIA [id number] [place] [id number] [place] Glucose [Mass/Vol] 80 mg/dL Normal 74-99 [facility] Comment on above: Order Comment: Speci men Type: BLOOD SPECIMENOrdering Facility: [facility] Address: [address] [place] [address] Result Comment: The [place] [employer] (ADA) provides guidance for cutoff [...] Standards of Medical Care in Diabetes 2016, [place] [employer]. Diabetes Care. 2016.39(Suppl 1). Performed By: #### 2 4320-10, ####[facility] LABCLIA [id number] [place] [address] [place] Potassium [Moles/Vol] 3.4 mmol/L Low 3.7-5.1 [facility] Comment on above: Order Comment: Speci men Type: BLOOD SPECIMENOrdering Facility: [facility] Address: [address] [place] [address] Performed By: #### 2 4320-10, ####[facility] LABCLIA [id number] [place] [address] [place] Sodium [Moles/Vol] 140 mmol/L Normal 136-144 [facility] Comment on above: Order Comment: Speci men Type: BLOOD SPECIMENOrdering Facility: [facility] Address: [address] [place] [address] Performed By: #### 2 4320-10, ####[facility] LABCLIA [id number] [place] [id number] [place] Urea nitrogen [Mass/Vol] 40 mg/dL High 9-24 [facility] Comment on above: Order Comment: Speci men Type: BLOOD SPECIMENOrdering Facility: [facility] Address: [address] [place] [address] Performed By: #### 2 4320-10, ####[facility] LABCLIA [id number] [place] [address] [place] CASE MANAGEMon 07-24-2024 CASE MANAGEM Normal [facility] CBC panel Auto (Bld)on 07-24 Erythrocyte distribution width (RBC) [Ratio] 17.2 % High 11.5-15.0 [facility] Comment on above: Order Comment: Speci men Type: BLOOD SPECIMENOrdering Facility: [facility] Address: [address] [place] [address] Performed By: #### 5 8410-2 ####[facility] LABIA [id number] [place] [address] [place] Hematocrit (Bld) [Volume fraction] 41.8 % Normal 39.0-51.0 [facility] Comment on above: Order Comment: Speci men Type: BLOOD SPECIMENOrdering Facility: [facility] Address: [address] [place] [address] Performed By: #### 5 8410-2 ####[facility] LABIA [id number] [place] [address] [place] Hemoglobin (Bld) [Mass/Vol] 13.1 g/dL Normal 13.0-17.0 [facility] Comment on above: Order Comment: Speci men Type: BLOOD SPECIMENOrdering Facility: [facility] Address: [address] [place] [address] Performed By: #### 5 8410-2 ####[facility] LABIA [id number] [place] [address] [place] MCH (RBC) [Entitic mass] 28.2 pg Normal 26.0-34.0 [facility] Comment on above: Order Comment: Speci men Type: BLOOD SPECIMENOrdering Facility: [facility] Address: [address] [place] [address] Performed By: #### 5 8410-2 ####[facility] LABIA [id number] [place] [address] [place] MCHC (RBC) [Mass/Vol] 31.3 g/dL Normal 30.5-36.0 [facility] Comment on above: Order Comment: Speci men Type: BLOOD SPECIMENOrdering Facility: [facility] Address: [address] [place] [address] Performed By: #### 5 8410-2 ####[facility] LABCLIA [id number] [place] [address] [place] MCV (RBC) [Entitic vol] 90.1 fL Normal 80.0-100.0 [facility] Comment on above: Order Comment: Speci men Type: BLOOD SPECIMENOrdering Facility: [facility] Address: [address] [place] [address] Performed By: #### 5 8410-2 ####[facility] LABCLIA [id number] [place] [address] [place] Nucleated RBC (Bld) [#/Vol] 10*3/uL Normal <0.01 [facility] Comment on above: Order Comment: Speci men Type: BLOOD SPECIMENOrdering Facility: [facility] Address: [address] [place] [address] Performed By: #### 5 8410-2 ####[facility] LABCLIA [id number] [place] [address] [place] Platelet mean volume (Bld) [Entitic vol] 11.2 fL Normal 9.0-12.7 [facility] Comment on above: Order Comment: Speci men Type: BLOOD SPECIMENOrdering Facility: [facility] Address: [address] [place] [address] Performed By: #### 5 8410-2 ####[facility] LABCLIA [id number] [place] [address] [place] Platelets (Bld) [#/Vol] 155 10*3/uL Normal 150-400 [facility] Comment on above: Order Comment: Speci men Type: BLOOD SPECIMENOrdering Facility: [facility] Address: [address] [place] [address] Performed By: #### 5 8410-2 ####[facility] LABCLIA [id number] [place] [address] [place] RBC (Bld) [#/Vol] 4.64 10*6/uL Normal 4.20-6.00 [facility] Comment on above: Order Comment: Speci men Type: BLOOD SPECIMENOrdering Facility: [facility] Address: [address] [place] [address] Performed By: #### 5 8410-2 ####[facility] LABIA [id number] [place] [address] [place] WBC (Bld) [#/Vol] 5.21 10*3/uL Normal 3.70-11.00 [facility] Comment on above: Order Comment: Speci men Type: BLOOD SPECIMENOrdering Facility: [facility] Address: [address] [place] [address] Performed By: #### 5 8410-2 ####[facility] LABIA [id number] [place] [address] [place] CNCNPATEDon 07-24-2024 CNCNPATED Normal [facility] HOLTER 48 HOUR J2on 07-24-20 24 HOLTER 48 HOUR J2 Normal [facility] Magnesium SerPl-mCncon 07-24 Magnesium [Mass/Vol] 2.2 mg/dL Normal 1.7-2.3 [facility] Comment on above: Order Comment: Speci men Type: BLOOD SPECIMENOrdering Facility: [facility] Address: [address] [place] [address] Performed By: #### 2 4321-2, 17942-8 ####[facility] LABCLIA [id number] [place] [address] [place] NURSING PROGon 07-24-2024 NURSING PROG Normal [facility] Basic metabolic 2000 panelon 07-23-2024 Anion gap [Moles/Vol] 15 mmol/L Normal 8-15 [facility] Comment on above: Order Comment: Speci men Type: BLOOD SPECIMENOrdering Facility: [facility] Address: [address] [place] [address] Performed By: #### 2 4321-2, ####[facility] LABCLIA [id number] [place] [address] [place] Calcium [Mass/Vol] 8.7 mg/dL Normal 8.5-10.2 [facility] Comment on above: Order Comment: Speci men Type: BLOOD SPECIMENOrdering Facility: [facility] Address: [address] [place] [address] Performed By: #### 2 432-2, ####[facility] LABCLIA [id number] [place] [address] [place] Chloride [Moles/Vol] 101 mmol/L Normal 98-107 [facility] Comment on above: Order Comment: Speci men Type: BLOOD SPECIMENOrdering Facility: [facility] Address: [address] [place] [address] Performed By: #### 2 432-2, ####[facility] LABCLIA [id number] [place] [address] [place] CO2 [Moles/Vol] 21 mmol/L Low 22-30 [facility] Comment on above: Order Comment: Speci men Type: BLOOD SPECIMENOrdering Facility: [facility] Address: [address] [place], [place] [address] Performed By: #### 2 432-2, ####[facility] LABCLIA [id number] [place] [id number] [place] Creatinine [Mass/Vol] 1.96 mg/dL High 0.73-1.22 [facility] Comment on above: Order Comment: Speci men Type: BLOOD SPECIMENOrdering Facility: [facility] Address: [address] [place] [address] Performed By: #### 2 4321-2, ####[facility] LABCLIA [id number] [place] [address] [place] Creatinine and Glomerular filtration rate.predicted panel (S/P/Bld) 34 mL/min/1.73m??? Low >=60 [facility] Comment on above: Order Comment: Dylan olvera Type: BLOOD SPECIMENOrdering Facility: [facility] Address: [address] [place] [address] Result Comment: Etta mated Glomerular Filtration Rate [...] actual GFR. Performed By: #### 2 4321-2, ####[facility] LABIA [id number] [place] [id number] [place] Glucose [Mass/Vol] 75 mg/dL Normal 74-99 [facility] Comment on above: Order Comment: Dylan olvera Type: BLOOD SPECIMENOrdering Facility: [facility] Address: [address] [place] [address] Result Comment: The [place] [employer] (ADA) provides guidance for cutoff [...] Standards of Medical Care in Diabetes 2016, [place] [employer]. Diabetes Care. 2016.39(Suppl 1). Performed By: #### 2 4321-2, ####[facility] LABCLIA [id number] [address] [address] [place] Potassium [Moles/Vol] 4.1 mmol/L Normal 3.7-5.1 [facility] Comment on above: Order Comment: Speci men Type: BLOOD SPECIMENOrdering Facility: [facility] Address: [address] [place] [address] Performed By: #### 2 432-2, ####[facility] LABIA [id number] [place] [address] [place] Sodium [Moles/Vol] 137 mmol/L Normal 136-144 [facility] Comment on above: Order Comment: Speci men Type: BLOOD SPECIMENOrdering Facility: [facility] Address: [address] [place] [address] Performed By: #### 2 432-2, ####[facility] LABIA [id number] [place] [address] [place] Urea nitrogen [Mass/Vol] 38 mg/dL High 9-24 [facility] Comment on above: Order Comment: Speci men Type: BLOOD SPECIMENOrdering Facility: [facility] Address: [address] [place] [address] Performed By: #### 2 2, ####[facility] LABIA [id number] [address] [address] [place] CBC panel Auto (Bld)on 07-23 Erythrocyte distribution width (RBC) [Ratio] 17.5 % High 11.5-15.0 [facility] Comment on above: Order Comment: Speci men Type: BLOOD SPECIMENOrdering Facility: [facility] Address: [address] [place] [address] Performed By: #### 5 8410-2 ####[facility] LABIA [id number] [place] [address] [place] Hematocrit (Bld) [Volume fraction] 42.9 % Normal 39.0-51.0 [facility] Comment on above: Order Comment: Speci men Type: BLOOD SPECIMENOrdering Facility: [facility] Address: [address] [place] [address] Performed By: #### 5 8410-2 ####[facility] LABIA [id number] [place] [address] [place] Hemoglobin (Bld) [Mass/Vol] 12.7 g/dL Low 13.0-17.0 [facility] Comment on above: Order Comment: Speci men Type: BLOOD SPECIMENOrdering Facility: [facility] Address: [address] [place] [address] Performed By: #### 5 8410-2 ####[facility] LABIA [id number] [place] [address] [place] MCH (RBC) [Entitic mass] 28.2 pg Normal 26.0-34.0 [facility] Comment on above: Order Comment: Speci men Type: BLOOD SPECIMENOrdering Facility: [facility] Address: [address] [place] [address] Performed By: #### 5 8410-2 ####[facility] LABIA [id number] [place] [address] [place] MCHC (RBC) [Mass/Vol] 29.6 g/dL Low 30.5-36.0 [facility] Comment on above: Order Comment: Speci men Type: BLOOD SPECIMENOrdering Facility: [facility] Address: [address] [place] [address] Performed By: #### 5 8410-2 ####[facility] LABIA [id number] [place] [address] [place] MCV (RBC) [Entitic vol] 95.3 fL Normal 80.0-100.0 [facility] Comment on above: Order Comment: Speci men Type: BLOOD SPECIMENOrdering Facility: [facility] Address: [address] [place] [address] Performed By: #### 5 8410-2 ####[facility] LABIA [id number] [place] [address] [place] Nucleated RBC (Bld) [#/Vol] 10*3/uL Normal <0.01 [facility] Comment on above: Order Comment: Speci men Type: BLOOD SPECIMENOrdering Facility: [facility] Address: [address] [place] [address] Performed By: #### 5 8410-2 ####[facility] LABIA [id number] [place] [address] [place] Platelet mean volume (Bld) [Entitic vol] 11.0 fL Normal 9.0-12.7 [facility] Comment on above: Order Comment: Speci men Type: BLOOD SPECIMENOrdering Facility: [facility] Address: [address] [place] [address] Performed By: #### 5 8410-2 ####[facility] LABIA [id number] [place] [address] [place] Platelets (Bld) [#/Vol] 150 10*3/uL Normal 150-400 [facility] Comment on above: Order Comment: Speci men Type: BLOOD SPECIMENOrdering Facility: [facility] Address: [address] [place] [place] [address] Performed By: #### 5 8410-2 ####[facility] LABIA [id number] [place] [address] [place] RBC (Bld) [#/Vol] 4.50 10*6/uL Normal 4.20-6.00 [facility] Comment on above: Order Comment: Speci men Type: BLOOD SPECIMENOrdering Facility: [facility] Address: [address] [place] [address] Performed By: #### 5 8410-2 ####[facility] LABCLIA [id number] [place] [address] [place] WBC (Bld) [#/Vol] 6.09 10*3/uL Normal 3.70-11.00 [facility] Comment on above: Order Comment: Speci men Type: BLOOD SPECIMENOrdering Facility: [facility] Address: [address] [place] [address] Performed By: #### 5 8410-2 ####[facility] LABCLIA [id number] [place] [address] [place] CONSULTon 07-23-2024 CONSULT Normal [facility] Magnesium SerPl-mCncon 07-23 Magnesium [Mass/Vol] 2.3 mg/dL Normal 1.7-2.3 [facility] Comment on above: Order Comment: Speci men Type: BLOOD SPECIMENOrdering Facility: [facility] Address: [address] [place] [address] Performed By: #### 2 4321-2, 11427-1 ####[facility] LABIA [id number] [place] [address] [place] CARDIAC AMYLOID SPECT/grievance coordinator n 07-23-2024 NM CARDIAC AMYLOID SPECT/CT Normal [facility] NUTRITIONon 07-23-2024 NUTRITION Normal [facility] Basic metabolic 2000 panelon 07-22-2024 Anion gap [Moles/Vol] 14 mmol/L Normal 8-15 [facility] Comment on above: Order Comment: Speci men Type: BLOOD SPECIMENOrdering Facility: [facility] Address: [address] [place] [address] Performed By: #### 2 4321-2 ####[facility] LABCLIA [id number] [place] [address] [place] Calcium [Mass/Vol] 9.1 mg/dL Normal 8.5-10.2 [facility] Comment on above: Order Comment: Speci men Type: BLOOD SPECIMENOrdering Facility: [facility] Address: [address] [place] [address] Performed By: #### 2 4321-2 ####[facility] LABCLIA [id number] [place] [address] [place] Chloride [Moles/Vol] 100 mmol/L Normal 98-107 [facility] Comment on above: Order Comment: Speci men Type: BLOOD SPECIMENOrdering Facility: [facility] Address: [address] [place] [address] Performed By: #### 2 4321-2 ####[facility] LABCLIA [id number] [place] [address] [place] CO2 [Moles/Vol] 25 mmol/L Normal 22-30 [facility] Comment on above: Order Comment: Speci men Type: BLOOD SPECIMENOrdering Facility: [facility] Address: [address] [place] [address] Performed By: #### 2 4321-2 ####[facility] LABCLIA [id number] [place] [address] [place] Creatinine [Mass/Vol] 2.30 mg/dL High 0.73-1.22 [facility] Comment on above: Order Comment: Speci men Type: BLOOD SPECIMENOrdering Facility: [facility] Address: [address] [place] [address] Performed By: #### 2 4321-2 ####[facility] LABCLIA [id number] [place] [address] [place] Creatinine and Glomerular filtration rate.predicted panel (S/P/Bld) 28 mL/min/1.73m??? Low >=60 [facility] Comment on above: Order Comment: Speci men Type: BLOOD SPECIMENOrdering Facility: [facility] Address: [address] [place], [place] [address] Result Comment: Etta mated Glomerular Filtration Rate [...] actual GFR. Performed By: #### 2 4321-2 ####[facility] LABIA [id number] [place] [address] [place] Glucose [Mass/Vol] 114 mg/dL High 74-99 [facility] Comment on above: Order Comment: Speci men Type: BLOOD SPECIMENOrdering Facility: [facility] Address: [address] [place] [address] Result Comment: The [place] Diabetes Association (ADA) provides guidance for cutoff [...] Standards of Medical Care in Diabetes 2016, [place] [employer]. Diabetes Care. 2016.39(Suppl 1). Performed By: #### 2 4321-2 ####[facility] LABCLIA [id number] [place] [address] [place] Potassium [Moles/Vol] 3.9 mmol/L Normal 3.7-5.1 [facility] Comment on above: Order Comment: Dylan olvera Type: BLOOD SPECIMENOrdering Facility: [facility] Address: [address] [place] [address] Performed By: #### 2 4321-2 ####[facility] LABCLIA [id number] [place] [address] [place] Sodium [Moles/Vol] 139 mmol/L Normal 136-144 [facility] Comment on above: Order Comment: Speci men Type: BLOOD SPECIMENOrdering Facility: [facility] Address: [address] [place] [address] Performed By: #### 2 4321-2 ####[facility] LABCLIA [id number] [place] [address] [place] Urea nitrogen [Mass/Vol] 39 mg/dL High 9-24 [facility] Comment on above: Order Comment: Speci men Type: BLOOD SPECIMENOrdering Facility: [facility] Address: [address] [place] [address] Performed By: #### 2 4321-2 ####[facility] LABIA [id number] [place] [address] [place] CASE MGT INIT ASSESon 2023 CASE MGT INIT ASSES Normal [facility] CBC panel Auto (Bld)on 07-22 Erythrocyte distribution width (RBC) [Ratio] 17.0 % High 11.5-15.0 [facility] Comment on above: Order Comment: Speci men Type: BLOOD SPECIMENOrdering Facility: [facility] Address: [address] [place] [address] Performed By: #### 5 8410-2 ####[facility] LABCLIA [id number] [place] [address] [place] Hematocrit (Bld) [Volume fraction] 41.8 % Normal 39.0-51.0 [facility] Comment on above: Order Comment: Speci men Type: BLOOD SPECIMENOrdering Facility: [facility] Address: [address] [place] [address] Performed By: #### 5 8410-2 ####[facility] LABCLIA [id number] [place] [address] [place] Hemoglobin (Bld) [Mass/Vol] 13.3 g/dL Normal 13.0-17.0 [facility] Comment on above: Order Comment: Speci men Type: BLOOD SPECIMENOrdering Facility: [facility] Address: [address] [place] [address] Performed By: #### 5 8410-2 ####[facility] LABCLIA [id number] [place] [address] [place] MCH (RBC) [Entitic mass] 29.0 pg Normal 26.0-34.0 [facility] Comment on above: Order Comment: Speci men Type: BLOOD SPECIMENOrdering Facility: [facility] Address: [address] [place] [address] Performed By: #### 5 8410-2 ####[facility] LABCLIA [id number] [place] [address] [place] MCHC (RBC) [Mass/Vol] 31.8 g/dL Normal 30.5-36.0 [facility] Comment on above: Order Comment: Speci men Type: BLOOD SPECIMENOrdering Facility: [facility] Address: [address] [place] [address] Performed By: #### 5 8410-2 ####[facility] LABIA [id number] [place] [address] [place] MCV (RBC) [Entitic vol] 91.1 fL Normal 80.0-100.0 [facility] Comment on above: Order Comment: Speci men Type: BLOOD SPECIMENOrdering Facility: [facility] Address: [address] [place] [address] Performed By: #### 5 8410-2 ####[facility] LABIA [id number] [place] [address] [place] Nucleated RBC (Bld) [#/Vol] 10*3/uL Normal <0.01 [facility] Comment on above: Order Comment: Speci men Type: BLOOD SPECIMENOrdering Facility: [facility] Address: [address] [place] [address] Performed By: #### 5 8410-2 ####[facility] LABIA [id number] [place] [address] [place] Platelet mean volume (Bld) [Entitic vol] 10.9 fL Normal 9.0-12.7 [facility] Comment on above: Order Comment: Speci men Type: BLOOD SPECIMENOrdering Facility: [facility] Address: [address] [place] [address] Performed By: #### 5 8410-2 ####[facility] LABIA [id number] [place] [address] [place] Platelets (Bld) [#/Vol] 171 10*3/uL Normal 150-400 [facility] Comment on above: Order Comment: Speci men Type: BLOOD SPECIMENOrdering Facility: [facility] Address: [address] [place] [address] Performed By: #### 5 8410-2 ####[facility] LABIA [id number] [place] [address] [place] RBC (Bld) [#/Vol] 4.59 10*6/uL Normal 4.20-6.00 [facility] Comment on above: Order Comment: Speci men Type: BLOOD SPECIMENOrdering Facility: [facility] Address: [address] [place] [address] Performed By: #### 5 8410-2 ####[facility] LABIA [id number] [place] [address] [place] WBC (Bld) [#/Vol] 5.01 10*3/uL Normal 3.70-11.00 [facility] Comment on above: Order Comment: Speci men Type: BLOOD SPECIMENOrdering Facility: [facility] Address: [address] [place] [address] Performed By: #### 5 8410-2 ####[facility] LABIA [id number] [place] [id number] [place] ECG COMPLETEon 07-22-2024 ECG COMPLETE Normal [facility] HOLTER 24 HOUR J2on 07-22-20 24 HOLTER 24 HOUR J2 Normal [facility] IMMUNOFIXATION SCREEN, SERUM on 07-22-2024 MPA RESULT No M protein is identified. Normal No M protein is identified. [facility] Comment on above: Order Comment: Speci men Type: BLOOD SPECIMENOrdering Facility: [facility] Address: [address] [place] [address] Performed By: #### I FES ####[facility] LABIA [id number] [address] [place] STAFF REVIEW (MPA) Reviewed by Kinga Leonard MD Normal [facility] Comment on above: Order Comment: Speci men Type: BLOOD SPECIMENOrdering Facility: [facility] Address: [address] [place] [address] Performed By: #### I FES ####[facility] LABIA [id number] [place] [address] [place] KAPPA/HELM,FREE,SERon 2023 Immunoglobulin light chains.kappa.free (S) [Mass/Vol] 55.3 mg/L High 3.3-19.4 [facility] Comment on above: Order Comment: Speci men Type: BLOOD SPECIMENOrdering Facility: [facility] Address: [address] [place] [address] Result Comment: Rare ly, increased serum free light chains levels may not be detected or accurately quantified due to prozone phenomenon or in high viscosity samples using this immunoturbidimetric assay. Correlation with other laboratory results and clinical findings is recommended.The Cameron Free Light Chain was performed using the Binding Site Optilite immunoturbidimetric method. Result obtained with different assay methods or kits cannot be used interchangeably. Performed By: #### K LFRS ####[facility] LABIA [id number] [place] [address] [place] Immunoglobulin light chains.kappa/Immuno globulin light chains.lambda (S) [Mass ratio] 0.93 Normal 0.26-1.65 [facility] Comment on above: Order Comment: Speci men Type: BLOOD SPECIMENOrdering Facility: [facility] Address: [address] [place] [address] Performed By: #### K LFRS ####[facility] LABIA [id number] [place] [address] [place] Immunoglobulin light chains.lambda.free [Mass/Vol] 59.7 mg/L High 5.7-26.3 [facility] Comment on above: Order Comment: Speci men Type: BLOOD SPECIMENOrdering Facility: [facility] Address: [address] [place] [address] Result Comment: Rare ly, increased serum free [...] used interchangeably. Performed By: #### K LFRS ####[facility] LABIA [id number] [place] [address] [place] MONOCLONAL PROT UR W/INTERPo n 07-22-2024 STAFF REVIEW ([facility]) Reviewed by Kinga Leonard MD Normal [facility] Comment on above: Order Comment: Speci men Type: URINE SPECIMENOrdering Facility: [facility] Address: [address] [place] [address] Performed By: #### U RMPA ####[facility] LABIA [id number] [place] [address] [place] UMPA RESULT No M protein is identified. Normal No M protein is identified. [facility] Comment on above: Order Comment: Speci men Type: URINE SPECIMENOrdering Facility: [facility] Address: [address] [place] [address] Performed By: #### U RMPA ####[facility] LABIA [id number] [place] [address] [place] Magnesium SerPl-mCncon 07-22 Magnesium [Mass/Vol] 2.4 mg/dL High 1.7-2.3 [facility] Comment on above: Order Comment: Speci men Type: BLOOD SPECIMENOrdering Facility: [facility] Address: [address] [place] [address] Performed By: #### 1 9123-9 ####[facility] LABIA [id number] [place] [address] [place] Prot/Creat Uron 07-22-2024 Protein/Creatinine (U) [Mass ratio] 0.36 mg/mg High <0.15 [facility] Comment on above: Order Comment: Speci men Type: URINE SPECIMENOrdering Facility: [facility] Address: [address] [place] [address] Result Comment: Adul t Proteinuria Categories:<0.15 mg/mg is considered normal to mildly increased0.15 - 0.50 mg/mg is considered moderately increased>0.50 mg/mg is considered severely increasedKDIGO. (2013). KDIGO 2012 Clinical Practice Guideline for the Evaluation and Management of Chronic Kidney Disease. Official Journal of the International Society of Nephrology, 3(1), 1-150. Performed By: #### 2 890-2 ####[facility] LABIA [id number] [place] [id number] [place] Protein/Creatinine (U) [Mass ratio]on 07-22-2024 Creatinine (U) [Mass/Vol] 30.5 mg/dL Normal 20.0-300.0 [facility] Comment on above: Order Comment: Speci men Type: URINE SPECIMENOrdering Facility: [facility] Address: [address] [place] [address] Performed By: #### 2 890-2 ####[facility] LABCLIA [id number] [place] [address] [place] Protein (U) [Mass/Vol] 11 mg/dL Normal 0-20 [facility] Comment on above: Order Comment: Speci men Type: URINE SPECIMENOrdering Facility: [facility] Address: [address] [place] [address] Performed By: #### 2 890-2 ####[facility] LABCLIA [id number] [place] [address] [place] THERAPY NTon 07-22-2024 THERAPY NT Normal [facility] TYPE + SCREENon 07-22-2024 ABO O Normal [facility] Comment on above: Order Comment: Speci men Type: BLOOD SPECIMENOrdering Facility: [facility] Address: [address] [place] [address] Performed By: #### T SCR ####[facility] BLOOD BANKIA [id number] [place] [address] [place] Rh Nom (Bld) Positive Normal [facility] Comment on above: Order Comment: Speci men Type: BLOOD SPECIMENOrdering Facility: [facility] Address: [address] [place] [address] Performed By: #### T SCR ####[facility] BLOOD BANKIA [id number] [place] [address] [place] TYPE AND SCREEN EXPIRATION 07/25/2024 23:59 Normal [facility] Comment on above: Order Comment: Speci men Type: BLOOD SPECIMENOrdering Facility: [facility] Address: [address] [place] [address] Performed By: #### T SCR ####[facility] BLOOD BANKCLIA [id number] [place] [id number] [place] CBC W Auto Differential pane l (Bld)on 07-21-2024 Basophils (Bld) [#/Vol] 0.04 10*3/uL Normal <0.11 [facility] Comment on above: Order Comment: Speci men Type: BLOOD SPECIMENOrdering Facility: [facility] Address: [address] [place] [address] Performed By: #### 5 7021-8 ####[facility] LABCLIA [id number] [place] [address] [place] Basophils/100 WBC (Bld) 0.7 % Normal [facility] Comment on above: Order Comment: Speci men Type: BLOOD SPECIMENOrdering Facility: [facility] Address: [address] [place] [address] Performed By: #### 5 7021-8 ####[facility] LABCLIA [id number] [place] [address] [place] Differential cell count method Nom (Bld) Auto Normal [facility] Comment on above: Order Comment: Speci men Type: BLOOD SPECIMENOrdering Facility: [facility] Address: [address] [place] [address] Performed By: #### 5 7021-8 ####[facility] LABCLIA [id number] [place] [address] [place] Eosinophils (Bld) [#/Vol] 0.08 10*3/uL Normal <0.46 [facility] Comment on above: Order Comment: Speci men Type: BLOOD SPECIMENOrdering Facility: [facility] Address: [address] [place] [address] Performed By: #### 5 7021-8 ####[facility] LABCLIA [id number] [place] [address] [place] Eosinophils/100 WBC (Bld) 1.4 % Normal [facility] Comment on above: Order Comment: Speci men Type: BLOOD SPECIMENOrdering Facility: [facility] Address: [address] [place] [address] Performed By: #### 5 7021-8 ####[facility] LABCLIA [id number] [place] [address] [place] Erythrocyte distribution width (RBC) [Ratio] 17.0 % High 11.5-15.0 [facility] Comment on above: Order Comment: Speci men Type: BLOOD SPECIMENOrdering Facility: [facility] Address: [address] [place] [address] Performed By: #### 5 7021-8 ####[facility] LABCLIA [id number] [place] [address] [place] Hematocrit (Bld) [Volume fraction] 40.7 % Normal 39.0-51.0 [facility] Comment on above: Order Comment: Speci men Type: BLOOD SPECIMENOrdering Facility: [facility] Address: [address] [place] [address] Performed By: #### 5 7021-8 ####[facility] LABIA [id number] [place] [address] [place] Hemoglobin (Bld) [Mass/Vol] 12.8 g/dL Low 13.0-17.0 [facility] Comment on above: Order Comment: Speci men Type: BLOOD SPECIMENOrdering Facility: [facility] Address: [address] [place] [address] Performed By: #### 5 7021-8 ####[facility] LABIA [id number] [place] [address] [place] Immature granulocytes (Bld) [#/Vol] 10*3/uL Normal <0.10 [facility] Comment on above: Order Comment: Speci men Type: BLOOD SPECIMENOrdering Facility: [facility] Address: [address] [place] [address] Performed By: #### 5 7021-8 ####[facility] LABCLIA [id number] [place] [address] [place] Immature granulocytes/100 WBC (Bld) 0.2 % Normal [facility] Comment on above: Order Comment: Speci men Type: BLOOD SPECIMENOrdering Facility: [facility] Address: [address] [place] [address] Performed By: #### 5 7021-8 ####[facility] LABCLIA [id number] [place] [address] [place] Lymphocytes (Bld) [#/Vol] 0.88 10*3/uL Low 1.00-4.00 [facility] Comment on above: Order Comment: Speci men Type: BLOOD SPECIMENOrdering Facility: [facility] Address: [address] [place] [address] Performed By: #### 5 7021-8 ####[facility] LABCLIA [id number] [place] [address] [place] Lymphocytes/100 WBC (Bld) 15.8 % Normal [facility] Comment on above: Order Comment: Speci men Type: BLOOD SPECIMENOrdering Facility: [facility] Address: [address] [place] [address] Performed By: #### 5 7021-8 ####[facility] LABCLIA [id number] [place] [address] [place] MCH (RBC) [Entitic mass] 28.2 pg Normal 26.0-34.0 [facility] Comment on above: Order Comment: Speci men Type: BLOOD SPECIMENOrdering Facility: [facility] Address: [address] [place] [address] Performed By: #### 5 7021-8 ####[facility] LABCLIA [id number] [place] [address] [place] MCHC (RBC) [Mass/Vol] 31.4 g/dL Normal 30.5-36.0 [facility] Comment on above: Order Comment: Speci men Type: BLOOD SPECIMENOrdering Facility: [facility] Address: [address] [place] [address] Performed By: #### 5 7021-8 ####[facility] LABCLIA [id number] [place] [address] [place] MCV (RBC) [Entitic vol] 89.6 fL Normal 80.0-100.0 [facility] Comment on above: Order Comment: Speci men Type: BLOOD SPECIMENOrdering Facility: [facility] Address: [address] [place] [address] Performed By: #### 5 7021-8 ####[facility] LABIA [id number] [place] [address] [place] Monocytes (Bld) [#/Vol] 0.62 10*3/uL Normal <0.87 [facility] Comment on above: Order Comment: Speci men Type: BLOOD SPECIMENOrdering Facility: [facility] Address: [address] [place] [address] Performed By: #### 5 7021-8 ####[facility] LABIA [id number] [place] [address] [place] Monocytes/100 WBC (Bld) 11.1 % Normal [facility] Comment on above: Order Comment: Speci men Type: BLOOD SPECIMENOrdering Facility: [facility] Address: [address] [place] [address] Performed By: #### 5 7021-8 ####[facility] LABIA [id number] [place] [address] [place] Neutrophils (Bld) [#/Vol] 3.95 10*3/uL Normal 1.45-7.50 [facility] Comment on above: Order Comment: Speci men Type: BLOOD SPECIMENOrdering Facility: [facility] Address: [address] [place] [address] Performed By: #### 5 7021-8 ####[facility] LABIA [id number] [place] [address] [place] Neutrophils/100 WBC (Bld) 70.8 % Normal [facility] Comment on above: Order Comment: Speci men Type: BLOOD SPECIMENOrdering Facility: [facility] Address: [address] [place] [address] Performed By: #### 5 7021-8 ####[facility] LABCLIA [id number] [place] [address] [place] Nucleated RBC (Bld) [#/Vol] 10*3/uL Normal <0.01 [facility] Comment on above: Order Comment: Speci men Type: BLOOD SPECIMENOrdering Facility: [facility] Address: [address] [place] [address] Performed By: #### 5 7021-8 ####[facility] LABIA [id number] [place] [address] [place] Nucleated RBC/100 WBC (Bld) [Ratio] 0.0 /100 WBC Normal [facility] Comment on above: Order Comment: Speci men Type: BLOOD SPECIMENOrdering Facility: [facility] Address: [address] [place] [address] Performed By: #### 5 7021-8 ####[facility] LABIA [id number] [place] [address] [place] Platelet mean volume (Bld) [Entitic vol] 10.2 fL Normal 9.0-12.7 [facility] Comment on above: Order Comment: Speci men Type: BLOOD SPECIMENOrdering Facility: [facility] Address: [address] [place] [address] Performed By: #### 5 7021-8 ####[facility] LABIA [id number] [place] [address] [place] Platelets (Bld) [#/Vol] 161 10*3/uL Normal 150-400 [facility] [facility] Comment on above: Order Comment: Speci men Type: BLOOD SPECIMENOrdering Facility: [facility] Address: [address] [place] [address] Performed By: #### 5 7021-8 ####[facility] LABCLIA [id number] [address] [address] [place] RBC (Bld) [#/Vol] 4.54 10*6/uL Normal 4.20-6.00 [facility] Comment on above: Order Comment: Speci men Type: BLOOD SPECIMENOrdering Facility: [facility] Address: [address] [place] [address] Performed By: #### 5 7021-8 ####[facility] LABIA [id number] [place] [address] [place] WBC (Bld) [#/Vol] 5.58 10*3/uL Normal 3.70-11.00 [facility] Comment on above: Order Comment: Speci men Type: BLOOD SPECIMENOrdering Facility: [facility] Address: [address] [place] [address] Performed By: #### 5 7021-8 ####[facility] LABIA [id number] [place] [id number] [place] Comprehensive metabolic 2000 panelon 07-21-2024 Albumin [Mass/Vol] 3.6 g/dL Low 3.9-4.9 [facility] Comment on above: Order Comment: Speci men Type: BLOOD SPECIMENOrdering Facility: [facility] Address: [address] [place] [address] Performed By: #### L [id number], 35144-6, 42959-8, 98741-0 ####[facility] LABIA [id number] [place] [id number] [place] ALP [Catalytic activity/Vol] 92 U/L Normal 38-113 [facility] Comment on above: Order Comment: Speci men Type: BLOOD SPECIMENOrdering Facility: [facility] Address: [address] [place] [address] Performed By: #### L [id number], 66325-5, 94186-7, 05493-7 ####[facility] LABCLIA [id number] [place] [id number] [place] ALT [Catalytic activity/Vol] 11 U/L Normal 10-54 [facility] Comment on above: Order Comment: Speci men Type: BLOOD SPECIMENOrdering Facility: [facility] Address: [address] [place] [address] Performed By: #### L AC6255, 06940-4, 47613-2, ####[facility] LABIA [id number] [place] [address] [place] Anion gap [Moles/Vol] 12 mmol/L Normal 8-15 [facility] Comment on above: Order Comment: Speci men Type: BLOOD SPECIMENOrdering Facility: [facility] Address: [address] [place] [address] Performed By: #### L [id number], 59016-5, 69802-2, ####[facility] [id number] [place] [address] [place] AST [Catalytic activity/Vol] 21 U/L Normal 14-40 [facility] Comment on above: Order Comment: Speci men Type: BLOOD SPECIMENOrdering Facility: [facility] Address: [address] [place] [address] Performed By: #### L [id number], 88044-4, 63323-3, ####[facility] LABIA [id number] [address] [address] [place] Bilirubin [Mass/Vol] 0.9 mg/dL Normal 0.2-1.3 [facility] Comment on above: Order Comment: Speci men Type: BLOOD SPECIMENOrdering Facility: [facility] Address: [address] [place] [address] Performed By: #### L CV0197, 89826-3, 10965-3, 43159-9 ####[facility] LABCLIA [id number] [address] [address] [place] Calcium [Mass/Vol] 9.0 mg/dL Normal 8.5-10.2 [facility] Comment on above: Order Comment: Speci men Type: BLOOD SPECIMENOrdering Facility: [facility] Address: [address] [place] [address] Performed By: #### L [id number], 26044-1, 50454-6, ####[facility] LABCLIA [id number] [address] [address] [place] Chloride [Moles/Vol] 100 mmol/L Normal 98-107 [facility] Comment on above: Order Comment: Speci men Type: BLOOD SPECIMENOrdering Facility: [facility] Address: [address] [place] [address] Performed By: #### L GV6100, 46270-9, 44796-7, ####[facility] LABCLIA [id number] [address] [address] [place] CO2 [Moles/Vol] 25 mmol/L Normal 22-30 [facility] Comment on above: Order Comment: Speci men Type: BLOOD SPECIMENOrdering Facility: [facility] Address: [address] [place] [address] Performed By: #### L CH3664, 92187-5, 93050-4, ####[facility] LABCLIA [id number] [address] [address] [place] Creatinine [Mass/Vol] 2.32 mg/dL High 0.73-1.22 [facility] Comment on above: Order Comment: Speci men Type: BLOOD SPECIMENOrdering Facility: [facility] Address: [address] [place], [place] [address] Performed By: #### L PD6389, 21799-2, 70011-6, ####[facility] LABCLIA [id number] [place] [address] [place] Creatinine and Glomerular filtration rate.predicted panel (S/P/Bld) 27 mL/min/1.73m??? Low >=60 [facility] Comment on above: Order Comment: Dylan olvera Type: BLOOD SPECIMENOrdering Facility: [facility] Address: [address] [place] [address] Result Comment: Etta mated Glomerular Filtration Rate [...] reflect actual GFR. Performed By: #### L [id number], 57134-5, 23145-6, 07159-5 ####[facility] LABIA [id number] [place] [address] [place] Glucose [Mass/Vol] 86 mg/dL Normal 74-99 [facility] Comment on above: Order Comment: Dylan olvera Type: BLOOD SPECIMENOrdering Facility: [facility] Address: [address] [place] [address] Result Comment: The [place] [employer] (ADA) provides guidance for cutoff [...] Standards of Medical Care in Diabetes 2016, [place] [employer]. Diabetes Care. 2016.39(Suppl 1). Performed By: #### L CO5095, 57682-6, 29481-0, 96629-0 ####[facility] LABCLIA [id number] [address] [address] [place] Potassium [Moles/Vol] 3.6 mmol/L Low 3.7-5.1 [facility] Comment on above: Order Comment: Speci men Type: BLOOD SPECIMENOrdering Facility: [facility] Address: [address] [place] [address] Performed By: #### L SC2649, 39256-0, 39992-0, 01604-5 ####[facility] LABCLIA [id number] [place] [address] [place] Protein [Mass/Vol] 6.5 g/dL Normal 6.3-8.0 [facility] Comment on above: Order Comment: Speci men Type: BLOOD SPECIMENOrdering Facility: [facility] Address: [address] [place] [address] Performed By: #### L UO9498, 36384-3, 20482-6, 22265-8 ####[facility] LABCLIA [id number] [place] [address] [place] Sodium [Moles/Vol] 137 mmol/L Normal 136-144 [facility] Comment on above: Order Comment: Speci men Type: BLOOD SPECIMENOrdering Facility: [facility] Address: [address] [place] [address] Performed By: #### L DH5800, 22138-4, 36187-1, 46789-7 ####[facility] LABCLIA [id number] [address] [address] [place] Urea nitrogen [Mass/Vol] 40 mg/dL High 9-24 [facility] Comment on above: Order Comment: Speci men Type: BLOOD SPECIMENOrdering Facility: [facility] Address: [address] [place] [address] Performed By: #### L [id number], 52267-8, 19989-8, 34121-0 ####[facility] LABCLIA [id number] [address] [address] [place] [id number] 07-21-2024 ECG01 Normal [facility] ED NOTEon 07-21-2024 ED NOTE HNO ID: [id number] Author: AMY KIM RN Service: Emergency Medicine Author Type: Registered Nurse Type: ED Notes Filed: 07/21/2024 21:41 Note Text: Report called to Inocente Crenshaw received report Normal [facility] ED PROV NOTEon 07-21-2024 ED PROV NOTE Normal [facility] ED Triage Noteon 07-21-2024 ED Triage Note Normal [facility] HIGH SENSITIVITY TROPONIN T (INITIAL)on 07-21-2024 Troponin T.cardiac High sensitivity method [Mass/Vol] 65 ng/L High <12 [facility] Comment on above: Order Comment: Speci men Type: BLOOD SPECIMENOrdering Facility: [facility] Address: [address] [place] [address] Performed By: #### L [id number], 75861-3, 62758-2, 63559-5 ####[facility] [id number] [place] [address] [place] HIGH SENSITIVITY TROPONIN T (SECOND)on 07-21-2024 Troponin T.cardiac High sensitivity method [Mass/Vol] 42 ng/L High <12 [facility] Comment on above: Order Comment: Speci men Type: BLOOD SPECIMENOrdering Facility: [facility] Address: [address] [place] [address] Performed By: #### L [id number] ####[facility] LABIA [id number] [place] [address] [place] HIGH SENSITIVITY TROPONIN T (THIRD) 3 HRS AFTER INITIALon 07-21-2024 Troponin T.cardiac High sensitivity method [Mass/Vol] 47 ng/L High <12 [facility] Comment on above: Order Comment: Speci men Type: BLOOD SPECIMENOrdering Facility: [facility] Address: [address] [place] [address] Performed By: #### L [id number] ####[facility] LABCLIA [id number] [place] [address] [place] HISTORY PHYSICALon HISTORY PHYSICAL Normal [facility] Magnesium [Mass/Vol] 2.5 mg/dL High 1.7-2.3 [facility] Comment on above: Order Comment: Speci men Type: BLOOD SPECIMENOrdering Facility: [facility] Address: [address] [place] [address] Performed By: #### L [id number], 88869-3, 36886-1, 49008-6 ####[facility] LABCLIA [id number] [place] [address] [place] NT-proBNP [facility] 07-21 Natriuretic peptide.B prohormone N-Terminal [Mass/Vol] 14679 pg/mL High <450 [facility] Comment on above: Order Comment: Speci men Type: BLOOD SPECIMENOrdering Facility: [facility] Address: [address] [place] [address] Performed By: #### L [id number], 27861-0, 45686-0, 22372-8 ####[facility] LABCLIA [id number] [place] [address] [place] XR CHEST 2V FRONTAL/LATon XR CHEST 2V FRONTAL/LAT Normal [facility] CNPNon 06-02-2024 CNPN Normal [facility] ANES POSTPROC EVALon 024 ANES POSTPROC EVAL Normal [facility] CNPNon 05-20-2024 CNPN Normal [facility] CASE MANAGEMon 05-16-2024 CASE MANAGEM Normal [facility] CBC panel Auto (Bld)on 05-16 Erythrocyte distribution width (RBC) [Ratio] 19.3 % High 11.5-15.0 [facility] Comment on above: Order Comment: Speci men Type: BLOOD SPECIMENOrdering Facility: [facility] Address: [address] [place] [address] Performed By: #### 5 8410-2 ####[facility] LABIA [id number] [place] [address] [place] Hematocrit (Bld) [Volume fraction] 31.8 % Low 39.0-51.0 [facility] Comment on above: Order Comment: Speci men Type: BLOOD SPECIMENOrdering Facility: [facility] Address: [address] [place] [address] Performed By: #### 5 8410-2 ####[facility] [id number] [place] [address] [place] Hemoglobin (Bld) [Mass/Vol] 9.4 g/dL Low 13.0-17.0 [facility] Comment on above: Order Comment: Speci men Type: BLOOD SPECIMENOrdering Facility: [facility] Address: [address] [place] [address] Performed By: #### 5 8410-2 ####[facility] LABIA [id number] [place] [address] [place] MCH (RBC) [Entitic mass] 30.8 pg Normal 26.0-34.0 [facility] Comment on above: Order Comment: Speci men Type: BLOOD SPECIMENOrdering Facility: [facility] Address: [address] [place] [address] Performed By: #### 5 8410-2 ####[facility] LABIA [id number] [place] [address] [place] MCHC (RBC) [Mass/Vol] 29.6 g/dL Low 30.5-36.0 [facility] Comment on above: Order Comment: Speci men Type: BLOOD SPECIMENOrdering Facility: [facility] Address: [address] [place] [address] Performed By: #### 5 8410-2 ####[facility] LABCLIA [id number] [place] [address] [place] MCV (RBC) [Entitic vol] 104.3 fL High 80.0-100.0 [facility] Comment on above: Order Comment: Speci men Type: BLOOD SPECIMENOrdering Facility: [facility] Address: [address] [place] [address] Performed By: #### 5 8410-2 ####[facility] LABIA [id number] [place] [address] [place] Nucleated RBC (Bld) [#/Vol] 10*3/uL Normal <0.01 [facility] Comment on above: Order Comment: Speci men Type: BLOOD SPECIMENOrdering Facility: [facility] Address: [address] [place] [address] Performed By: #### 5 8410-2 ####[facility] LABIA [id number] [place] [address] [place] Platelet mean volume (Bld) [Entitic vol] 10.8 fL Normal 9.0-12.7 [facility] Comment on above: Order Comment: Speci men Type: BLOOD SPECIMENOrdering Facility: [facility] Address: [address] [place] [address] Performed By: #### 5 8410-2 ####[facility] LABIA [id number] [place] [address] [place] Platelets (Bld) [#/Vol] 158 10*3/uL Normal 150-400 [facility] Comment on above: Order Comment: Speci men Type: BLOOD SPECIMENOrdering Facility: [facility] Address: [address] [place] [address] Performed By: #### 5 8410-2 ####[facility] LABIA [id number] [place] [address] [place] RBC (Bld) [#/Vol] 3.05 10*6/uL Low 4.20-6.00 [facility] Comment on above: Order Comment: Speci men Type: BLOOD SPECIMENOrdering Facility: [facility] Address: [address] [place] [address] Performed By: #### 5 8410-2 ####[facility] LABCLIA [id number] [place] [address] [place] WBC (Bld) [#/Vol] 4.48 10*3/uL Normal 3.70-11.00 [facility] Comment on above: Order Comment: Speci men Type: BLOOD SPECIMENOrdering Facility: [facility] Address: [address] [place] [address] Performed By: #### 5 8410-2 ####[facility] LABCLIA [id number] [place] [address] [place] CNDSon 05-16-2024 CNDS Normal [facility] Renal function 2000 panelon 05-16-2024 Albumin [Mass/Vol] 3.4 g/dL Low 3.9-4.9 [facility] Comment on above: Order Comment: Speci men Type: BLOOD SPECIMENOrdering Facility: [facility] Address: [address] [place] [address] Performed By: #### 2 4362-6 ####[facility] LABCLIA [id number] [place] [address] [place] Anion gap [Moles/Vol] 9 mmol/L Normal 8-15 [facility] Comment on above: Order Comment: Speci men Type: BLOOD SPECIMENOrdering Facility: [facility] Address: [address] [place] [address] Performed By: #### 2 4362-6 ####[facility] LABCLIA [id number] [place] [address] [place] Calcium [Mass/Vol] 9.0 mg/dL Normal 8.5-10.2 [facility] Comment on above: Order Comment: Speci men Type: BLOOD SPECIMENOrdering Facility: [facility] Address: [address] [place] [address] Performed By: #### 2 4362-6 ####[facility] LABCLIA [id number] [place] [address] [place] Chloride [Moles/Vol] 105 mmol/L Normal 98-107 [facility] Comment on above: Order Comment: Speci men Type: BLOOD SPECIMENOrdering Facility: [facility] Address: [address] [place] [address] Performed By: #### 2 4362-6 ####[facility] LABCLIA [id number] [place] [address] [place] CO2 [Moles/Vol] 25 mmol/L Normal 22-30 [facility] Comment on above: Order Comment: Speci men Type: BLOOD SPECIMENOrdering Facility: [facility] Address: [address] [place] [address] Performed By: #### 2 4362-6 ####[facility] LABCLIA [id number] [place] [address] [place] Creatinine [Mass/Vol] 2.06 mg/dL High 0.73-1.22 [facility] Comment on above: Order Comment: Speci men Type: BLOOD SPECIMENOrdering Facility: [facility] Address: [address] [place] [address] Performed By: #### 2 4362-6 ####[facility] LABCLIA [id number] [place] [address] [place] Creatinine and Glomerular filtration rate.predicted panel (S/P/Bld) 32 mL/min/1.73m??? Low >=60 [facility] Comment on above: Order Comment: Speci men Type: BLOOD SPECIMENOrdering Facility: [facility] Address: [address] [place] [address] Result Comment: Etta mated Glomerular Filtration Rate [...] actual GFR. Performed By: #### 2 4362-6 ####[facility] LABIA [id number] [place] [address] [place] Glucose [Mass/Vol] 100 mg/dL High 74-99 [facility] Comment on above: Order Comment: Dylan olvera Type: BLOOD SPECIMENOrdering Facility: [facility] Address: [address] [place] [address] Result Comment: The [place] [employer] (ADA) provides guidance for cutoff [...] Standards of Medical Care in Diabetes 2016, [place] [employer]. Diabetes Care. 2016.39(Suppl 1). Performed By: #### 2 4362-6 ####[facility] LABIA [id number] [address] [address] [place] Phosphate [Mass/Vol] 2.4 mg/dL Low 2.7-4.8 [facility] Comment on above: Order Comment: Dylan olvera Type: BLOOD SPECIMENOrdering Facility: [facility] Address: [address] [place] [address] Performed By: #### 2 4362-6 ####[facility] LABIA [id number] [address] [address] [place] Potassium [Moles/Vol] 3.9 mmol/L Normal 3.7-5.1 [facility] Comment on above: Order Comment: Speci men Type: BLOOD SPECIMENOrdering Facility: [facility] Address: [address] [place] [address] Performed By: #### 2 4362-6 ####[facility] LABCLIA [id number] [facility] [place] [address] [place] Sodium [Moles/Vol] 139 mmol/L Normal 136-144 [facility] Comment on above: Order Comment: Speci men Type: BLOOD SPECIMENOrdering Facility: [facility] Address: [address] [place] [address] Performed By: #### 2 4362-6 ####[facility] LABCLIA [id number] [place] [address] [place] Urea nitrogen [Mass/Vol] 23 mg/dL Normal 9-24 [facility] Comment on above: Order Comment: Speci men Type: BLOOD SPECIMENOrdering Facility: [facility] Address: [address] [place] [address] Performed By: #### 2 4362-6 ####[facility] LABCLIA [id number] [place] [address] [place] CASE MANAGEMon 05-15-2024 CASE MANAGEM Normal [facility] CASE MANAGEM Normal [facility] NUTRITIONon 05-15-2024 NUTRITION Normal [facility] PT EDon 05-15-2024 PT ED Normal [facility] Renal function 2000 panelon 05-15-2024 Albumin [Mass/Vol] 3.2 g/dL Low 3.9-4.9 [facility] Comment on above: Order Comment: Speci men Type: BLOOD SPECIMENOrdering Facility: [facility] Address: [address] [place] [address] Performed By: #### 2 4362-6 ####[facility] LABCLIA [id number] [place] [id number] [place] Anion gap [Moles/Vol] 9 mmol/L Normal 8-15 [facility] Comment on above: Order Comment: Speci men Type: BLOOD SPECIMENOrdering Facility: [facility] Address: [address] [place] [address] Performed By: #### 2 4362-6 ####[facility] LABCLIA [id number] [place] [address] [place] Calcium [Mass/Vol] 8.7 mg/dL Normal 8.5-10.2 [facility] Comment on above: Order Comment: Speci men Type: BLOOD SPECIMENOrdering Facility: [facility] Address: [address] [place] [address] Performed By: #### 2 4362-6 ####[facility] LABCLIA [id number] [place] [address] [place] Chloride [Moles/Vol] 107 mmol/L Normal 98-107 [facility] Comment on above: Order Comment: Speci men Type: BLOOD SPECIMENOrdering Facility: [facility] Address: [address] [place] [address] Performed By: #### 2 4362-6 ####[facility] LABCLIA [id number] [place] [address] [place] CO2 [Moles/Vol] 24 mmol/L Normal 22-30 [facility] Comment on above: Order Comment: Speci men Type: BLOOD SPECIMENOrdering Facility: [facility] Address: [address] [place] [address] Performed By: #### 2 4362-6 ####[facility] LABCLIA [id number] [place] [address] [place] Creatinine [Mass/Vol] 2.26 mg/dL High 0.73-1.22 [facility] Comment on above: Order Comment: Speci men Type: BLOOD SPECIMENOrdering Facility: [facility] Address: [address] [place] [address] Performed By: #### 2 4362-6 ####[facility] LABCLIA [id number] [place] [address] [place] Creatinine and Glomerular filtration rate.predicted panel (S/P/Bld) 28 mL/min/1.73m??? Low >=60 [facility] Comment on above: Order Comment: Dylan olvera Type: BLOOD SPECIMENOrdering Facility: [facility] Address: [address] [place] [address] Result Comment: Etta mated Glomerular Filtration Rate [...] actual GFR. Performed By: #### 2 4362-6 ####[facility] LABCLIA [id number] [place] [address] [place] Glucose [Mass/Vol] 120 mg/dL High 74-99 [facility] Comment on above: Order Comment: Dylan olvera Type: BLOOD SPECIMENOrdering Facility: [facility] Address: [address] [place] [address] Result Comment: The [place] [employer] (ADA) provides guidance for cutoff [...] Standards of Medical Care in Diabetes 2016, [place] [employer]. Diabetes Care. 2016.39(Suppl 1). Performed By: #### 2 4362-6 ####[facility] LABCLIA [id number] [place] [id number] [place] Phosphate [Mass/Vol] 2.8 mg/dL Normal 2.7-4.8 [facility] Comment on above: Order Comment: Speci men Type: BLOOD SPECIMENOrdering Facility: [facility] Address: [address] [place], [place] [address] Performed By: #### 2 4362-6 ####[facility] LABIA [id number] [place] [address] [place] Potassium [Moles/Vol] 3.8 mmol/L Normal 3.7-5.1 [facility] Comment on above: Order Comment: Speci men Type: BLOOD SPECIMENOrdering Facility: [facility] Address: [address] [place] [address] Performed By: #### 2 4362-6 ####[facility] LABIA [id number] [place] [address] [place] Sodium [Moles/Vol] 140 mmol/L Normal 136-144 [facility] Comment on above: Order Comment: Speci men Type: BLOOD SPECIMENOrdering Facility: [facility] Address: [address] [place] [address] Performed By: #### 2 4362-6 ####[facility] LABIA [id number] [place] [address] [place] Urea nitrogen [Mass/Vol] 24 mg/dL Normal 9-24 [facility] Comment on above: Order Comment: Speci men Type: BLOOD SPECIMENOrdering Facility: [facility] Address: [address] [place], [place] [address] Performed By: #### 2 4362-6 ####[facility] LABIA [id number] [place] [id number] [place] THERAPY NTon 05-15-2024 THERAPY NT Normal [facility] ALLIED HEALTHon 05-14-2024 ALLIED HEALTH Normal [facility] ANES PRE-OPon 05-14-2024 ANES PRE-OP Normal [facility] BRIEF OP NOTon 05-14-2024 BRIEF OP NOT Normal [facility] CBC panel Auto (Bld)on 05-14 Erythrocyte distribution width (RBC) [Ratio] 19.9 % High 11.5-15.0 [facility] Comment on above: Order Comment: Speci men Type: BLOOD SPECIMENOrdering Facility: [facility] Address: [address] [place] [place] [address] Performed By: #### 5 8410-2 ####[facility] LABIA [id number] [place] [address] [place] Hematocrit (Bld) [Volume fraction] 29.2 % Low 39.0-51.0 [facility] Comment on above: Order Comment: Speci men Type: BLOOD SPECIMENOrdering Facility: [facility] Address: [address] [place] [address] Performed By: #### 5 8410-2 ####[facility] LABIA [id number] [place] [address] [place] Hemoglobin (Bld) [Mass/Vol] 8.6 g/dL Low 13.0-17.0 [facility] Comment on above: Order Comment: Speci men Type: BLOOD SPECIMENOrdering Facility: [facility] Address: [address] [place] [address] Performed By: #### 5 8410-2 ####[facility] LABIA [id number] [place] [address] [place] MCH (RBC) [Entitic mass] 29.7 pg Normal 26.0-34.0 [facility] Comment on above: Order Comment: Speci men Type: BLOOD SPECIMENOrdering Facility: [facility] Address: [address] [place] [address] Performed By: #### 5 8410-2 ####[facility] LABIA [id number] [place] [address] [place] MCHC (RBC) [Mass/Vol] 29.5 g/dL Low 30.5-36.0 [facility] Comment on above: Order Comment: Speci men Type: BLOOD SPECIMENOrdering Facility: [facility] Address: [address] [place] [address] Performed By: #### 5 8410-2 ####[facility] LABCLIA [id number] [place] [address] [place] MCV (RBC) [Entitic vol] 100.7 fL High 80.0-100.0 [facility] Comment on above: Order Comment: Speci men Type: BLOOD SPECIMENOrdering Facility: [facility] Address: [address] [place] [address] Performed By: #### 5 8410-2 ####[facility] LABCLIA [id number] [place] [address] [place] Nucleated RBC (Bld) [#/Vol] 10*3/uL Normal <0.01 [facility] Comment on above: Order Comment: Speci men Type: BLOOD SPECIMENOrdering Facility: [facility] Address: [address] [place] [address] Performed By: #### 5 8410-2 ####[facility] LABIA [id number] [place] [address] [place] Platelet mean volume (Bld) [Entitic vol] 10.3 fL Normal 9.0-12.7 [facility] Comment on above: Order Comment: Speci men Type: BLOOD SPECIMENOrdering Facility: [facility] Address: [address] [place] [address] Performed By: #### 5 8410-2 ####[facility] LABCLIA [id number] [place] [address] [place] Platelets (Bld) [#/Vol] 158 10*3/uL Normal 150-400 [facility] Comment on above: Order Comment: Speci men Type: BLOOD SPECIMENOrdering Facility: [facility] Address: [address] [place] [address] Performed By: #### 5 8410-2 ####[facility] LABCLIA [id number] [place] [address] [place] RBC (Bld) [#/Vol] 2.90 10*6/uL Low 4.20-6.00 [facility] Comment on above: Order Comment: Speci men Type: BLOOD SPECIMENOrdering Facility: [facility] Address: [address] [place] [address] Performed By: #### 5 8410-2 ####[facility] LABIA [id number] [place] [address] [place] WBC (Bld) [#/Vol] 4.27 10*3/uL Normal 3.70-11.00 [facility] Comment on above: Order Comment: Speci men Type: BLOOD SPECIMENOrdering Facility: [facility] Address: [address] [place] [address] Performed By: #### 5 8410-2 ####[facility] LABIA [id number] [place] [address] [place] Magnesium SerPl-mCncon 05-14 Magnesium [Mass/Vol] 2.1 mg/dL Normal 1.7-2.3 [facility] Comment on above: Order Comment: Speci men Type: BLOOD SPECIMENOrdering Facility: [facility] Address: [address] [place] [address] Performed By: #### 1 9123-9, 30220-6 ####[facility] LABIA [id number] [place] [address] [place] PTT, ANTICOAGULANT THERAPYon 05-14-2024 aPTT Coag (PPP) [Time] 37.6 s High 23.0-32.4 [facility] Comment on above: Order Comment: Speci men Type: BLOOD SPECIMENOrdering Facility: [facility] Address: [address] [place] [address] Performed By: #### P TTA ####[facility] LABCLIA [id number] [place] [address] [place] Renal function 2000 panelon 05-14-2024 Albumin [Mass/Vol] 3.3 g/dL Low 3.9-4.9 [facility] Comment on above: Order Comment: Speci men Type: BLOOD SPECIMENOrdering Facility: [facility] Address: [address] [place] [address] Performed By: #### 1 9123-9, 75786-3 ####[facility] LABCLIA [id number] [place] [address] [place] Anion gap [Moles/Vol] 12 mmol/L Normal 8-15 [facility] Comment on above: Order Comment: Speci men Type: BLOOD SPECIMENOrdering Facility: [facility] Address: [address] [place] [address] Performed By: #### 1 9123-9, 12624-8 ####[facility] LABCLIA [id number] [place] [address] [place] Calcium [Mass/Vol] 9.0 mg/dL Normal 8.5-10.2 [facility] Comment on above: Order Comment: Speci men Type: BLOOD SPECIMENOrdering Facility: [facility] Address: [address] [place] [address] Performed By: #### 1 9123-9, 25783-4 ####[facility] LABCLIA [id number] [place] [address] [place] Chloride [Moles/Vol] 104 mmol/L Normal 98-107 [facility] Comment on above: Order Comment: Speci men Type: BLOOD SPECIMENOrdering Facility: [facility] Address: [address] [place] [address] Performed By: #### 1 9123-9, 98023-9 ####[facility] LABIA [id number] [place] [address] [place] CO2 [Moles/Vol] 24 mmol/L Normal 22-30 [facility] Comment on above: Order Comment: Speci men Type: BLOOD SPECIMENOrdering Facility: [facility] Address: [address] [place] [address] Performed By: #### 1 9123-9, 88919-6 ####[facility] LABIA [id number] [place] [address] [place] Creatinine [Mass/Vol] 2.14 mg/dL High 0.73-1.22 [facility] Comment on above: Order Comment: Speci men Type: BLOOD SPECIMENOrdering Facility: [facility] Address: [address] [place] [address] Performed By: #### 1 9123-9, 93996-9 ####[facility] [id number] [place] [address] [place] Creatinine and Glomerular filtration rate.predicted panel (S/P/Bld) 30 mL/min/1.73m??? Low >=60 [facility] Comment on above: Order Comment: Speci men Type: BLOOD SPECIMENOrdering Facility: [facility] Address: [address] [place] [address] Result Comment: Etta mated Glomerular Filtration Rate [...] actual GFR. Performed By: #### 1 9123-9, 22032-3 ####[facility] LABIA [id number] [place] [address] [place] Glucose [Mass/Vol] 84 mg/dL Normal 74-99 [facility] Comment on above: Order Comment: Speci men Type: BLOOD SPECIMENOrdering Facility: [facility] Address: [address] [place] [address] Result Comment: The [place] [employer] (ADA) provides guidance for cutoff [...] Standards of Medical Care in Diabetes 2016, [place] [employer]. Diabetes Care. 2016.39(Suppl 1). Performed By: #### 1 9123-9, 15420-2 ####[facility] LABCLIA [id number] [place] [address] [place] Phosphate [Mass/Vol] 2.7 mg/dL Normal 2.7-4.8 [facility] Comment on above: Order Comment: Dylan men Type: BLOOD SPECIMENOrdering Facility: [facility] Address: [address] [place] [address] Performed By: #### 1 9123-9, 77419-6 ####[facility] LABCLIA [id number] [place] [address] [place] Potassium [Moles/Vol] 3.9 mmol/L Normal 3.7-5.1 [facility] Comment on above: Order Comment: Rozi men Type: BLOOD SPECIMENOrdering Facility: [facility] Address: [address] [place] [address] Performed By: #### 1 9123-9, 79046-2 ####[facility] LABCLIA [id number] [place] [address] [place] Sodium [Moles/Vol] 140 mmol/L Normal 136-144 [facility] Comment on above: Order Comment: Speci men Type: BLOOD SPECIMENOrdering Facility: [facility] Address: [address] [place] [address] Performed By: #### 1 9123-9, 77028-7 ####[facility] LABCLIA [id number] [place] [address] [place] Urea nitrogen [Mass/Vol] 24 mg/dL Normal 9-24 [facility] Comment on above: Order Comment: Speci men Type: BLOOD SPECIMENOrdering Facility: [facility] Address: [address] [place] [address] Performed By: #### 1 9123-9, 48743-9 ####[facility] LABCLIA [id number] [place] [address] [place] THERAPY NTon 05-14-2024 THERAPY NT Normal [facility] TYPE + SCREENon 05-14-2024 ABO O Normal [facility] Comment on above: Order Comment: Speci men Type: BLOOD SPECIMENOrdering Facility: [facility] Address: [address] [place] [address] Performed By: #### T SCR ####[facility] BLOOD BANKCLIA [id number] [place] [address] [place] HISTORICAL AB SCR STATUS Negative Normal [facility] Comment on above: Order Comment: Speci men Type: BLOOD SPECIMENOrdering Facility: [facility] Address: [address] [place] [address] Performed By: #### T SCR ####[facility] BLOOD BANKCLIA [id number] [place] [address] [place] Rh Nom (Bld) Positive Normal [facility] Comment on above: Order Comment: Speci men Type: BLOOD SPECIMENOrdering Facility: [facility] Address: [address] [place] [address] Performed By: #### T SCR ####[facility] BLOOD BANKCLIA [id number] [place] [address] [place] TYPE AND SCREEN EXPIRATION 05/17/2024 23:59 Normal [facility] Comment on above: Order Comment: Speci men Type: BLOOD SPECIMENOrdering Facility: [facility] Address: [address] [place] [address] Performed By: #### T SCR ####[facility]OD [facility] [id number] [place] [address] [place] Upper GI endoscopyon 024 Upper GI endoscopy Normal [facility] aPTT PPPon 05-14-2024 aPTT Coag (PPP) [Time] 25.4 s Normal 23.0-32.4 [facility] Comment on above: Order Comment: Speci men Type: BLOOD SPECIMENOrdering Facility: [facility] Address: [address] [place] [address] Performed By: #### 1 4979-9 ####[facility] LABCLIA [id number] [place] [address] [place] CBC panel Auto (Bld)on 05-13 Erythrocyte distribution width (RBC) [Ratio] 20.2 % High 11.5-15.0 [facility] Comment on above: Order Comment: Speci men Type: BLOOD SPECIMENOrdering Facility: [facility] Address: [address] [place] [address] Performed By: #### 5 8410-2 ####[facility] LABCLIA [id number] [place] [address] [place] Hematocrit (Bld) [Volume fraction] 28.2 % Low 39.0-51.0 [facility] Comment on above: Order Comment: Speci men Type: BLOOD SPECIMENOrdering Facility: [facility] Address: [address] [place] [address] Performed By: #### 5 8410-2 ####[facility] LABCLIA [id number] [place] [address] [place] Hemoglobin (Bld) [Mass/Vol] 8.3 g/dL Low 13.0-17.0 [facility] Comment on above: Order Comment: Speci men Type: BLOOD SPECIMENOrdering Facility: [facility] Address: [address] [place] [address] Performed By: #### 5 8410-2 ####[facility] LABIA [id number] [place] [address] [place] MCH (RBC) [Entitic mass] 29.6 pg Normal 26.0-34.0 [facility] Comment on above: Order Comment: Speci men Type: BLOOD SPECIMENOrdering Facility: [facility] Address: [address] [place] [address] Performed By: #### 5 8410-2 ####[facility] LABIA [id number] [place] [address] [place] MCHC (RBC) [Mass/Vol] 29.4 g/dL Low 30.5-36.0 [facility] Comment on above: Order Comment: Speci men Type: BLOOD SPECIMENOrdering Facility: [facility] Address: [address] [place] [address] Performed By: #### 5 8410-2 ####[facility] LABIA [id number] [place] [address] [place] MCV (RBC) [Entitic vol] 100.7 fL High 80.0-100.0 [facility] Comment on above: Order Comment: Speci men Type: BLOOD SPECIMENOrdering Facility: [facility] Address: [address] [place] [address] Performed By: #### 5 8410-2 ####[facility] LABIA [id number] [place] [address] [place] Nucleated RBC (Bld) [#/Vol] 10*3/uL Normal <0.01 [facility] Comment on above: Order Comment: Speci men Type: BLOOD SPECIMENOrdering Facility: [facility] Address: [address] [place] [address] Performed By: #### 5 8410-2 ####[facility] LABIA [id number] [place] [address] [place] Platelet mean volume (Bld) [Entitic vol] 10.4 fL Normal 9.0-12.7 [facility] Comment on above: Order Comment: Speci men Type: BLOOD SPECIMENOrdering Facility: [facility] Address: [address] [place] [address] Performed By: #### 5 8410-2 ####[facility] LABIA [id number] [place] [address] [place] Platelets (Bld) [#/Vol] 169 10*3/uL Normal 150-400 [facility] Comment on above: Order Comment: Speci men Type: BLOOD SPECIMENOrdering Facility: [facility] Address: [address] [place] [address] Performed By: #### 5 8410-2 ####[facility] LABIA [id number] [place] [address] [place] RBC (Bld) [#/Vol] 2.80 10*6/uL Low 4.20-6.00 [facility] Comment on above: Order Comment: Speci men Type: BLOOD SPECIMENOrdering Facility: [facility] Address: [address] [place] [address] Performed By: #### 5 8410-2 ####[facility] LABIA [id number] [place] [address] [place] WBC (Bld) [#/Vol] 4.70 10*3/uL Normal 3.70-11.00 [facility] Comment on above: Order Comment: Speci men Type: BLOOD SPECIMENOrdering Facility: [facility] Address: [address] [place] [address] Performed By: #### 5 8410-2 ####[facility] LABCLIA [id number] [address] [place] Magnesium SerPl-mCncon 05-13 Magnesium [Mass/Vol] 2.2 mg/dL Normal 1.7-2.3 [facility] Comment on above: Order Comment: Speci men Type: BLOOD SPECIMENOrdering Facility: [facility] Address: [address] [place] [address] Performed By: #### 2 4362-6, 61096-5 ####[facility] LABCLIA [id number] [place] [address] [place] PTT, ANTICOAGULANT THERAPYon 05-13-2024 aPTT Coag (PPP) [Time] 49.3 s High 23.0-32.4 [facility] Comment on above: Order Comment: Speci men Type: BLOOD SPECIMENOrdering Facility: [facility] Address: [address] [place] [address] Performed By: #### P TTAC ####[facility] LABIA [id number] [address] [place] aPTT Coag (PPP) [Time] 62.2 s High 23.0-32.4 [facility] Comment on above: Order Comment: Speci men Type: BLOOD SPECIMENOrdering Facility: [facility] Address: [address] [place] [address] Performed By: #### P TTAC ####[facility] LABCLIA [id number] [place] [address] [place] aPTT Coag (PPP) [Time] 76.5 s High 23.0-32.4 [facility] Comment on above: Order Comment: Speci men Type: BLOOD SPECIMENOrdering Facility: [facility] Address: [address] [place] [address] Performed By: #### P TTAC ####[facility] LABCLIA [id number] [place] [address] [place] Renal function 2000 panelon 05-13-2024 Albumin [Mass/Vol] 3.4 g/dL Low 3.9-4.9 [facility] Comment on above: Order Comment: Speci men Type: BLOOD SPECIMENOrdering Facility: [facility] Address: [address] [place] [address] Performed By: #### 2 4362-6, ####[facility] LABCLIA [id number] [place] [address] [place] Anion gap [Moles/Vol] 12 mmol/L Normal 8-15 [facility] Comment on above: Order Comment: Speci men Type: BLOOD SPECIMENOrdering Facility: [facility] Address: [address] [place] [address] Performed By: #### 2 4362-6, ####[facility] LABIA [id number] [place] [address] [place] Calcium [Mass/Vol] 8.9 mg/dL Normal 8.5-10.2 [facility] Comment on above: Order Comment: Speci men Type: BLOOD SPECIMENOrdering Facility: [facility] Address: [address] [place] [address] Performed By: #### 2 4362-6, ####[facility] LABIA [id number] [place] [id number] [place] Chloride [Moles/Vol] 104 mmol/L Normal 98-107 [facility] Comment on above: Order Comment: Speci men Type: BLOOD SPECIMENOrdering Facility: [facility] Address: [address] [place] [address] Performed By: #### 2 4362-6, ####[facility] LABCLIA [id number] [place] [id number] [place] CO2 [Moles/Vol] 24 mmol/L Normal 22-30 [facility] Comment on above: Order Comment: Speci men Type: BLOOD SPECIMENOrdering Facility: [facility] Address: [address] [place] [address] Performed By: #### 2 4362-6, ####[facility] LABCLIA [id number] [facility] [place] [id number] [place] Creatinine [Mass/Vol] 2.10 mg/dL High 0.73-1.22 [facility] Comment on above: Order Comment: Speci men Type: BLOOD SPECIMENOrdering Facility: [facility] Address: [address] [place] [address] Performed By: #### 2 4362-6, ####[facility] LABCLIA [id number] [place] [address] [place] Creatinine and Glomerular filtration rate.predicted panel (S/P/Bld) 31 mL/min/1.73m??? Low >=60 [facility] Comment on above: Order Comment: Speci men Type: BLOOD SPECIMENOrdering Facility: [facility] Address: [address] [place] [address] Result Comment: Etta mated Glomerular Filtration Rate [...] actual GFR. Performed By: #### 2 4362-6, ####[facility] LABCLIA [id number] [place] [id number] [place] Glucose [Mass/Vol] 105 mg/dL High 74-99 [facility] Comment on above: Order Comment: Speci men Type: BLOOD SPECIMENOrdering Facility: [facility] Address: [address] [place] [address] Result Comment: The [place] [employer] (ADA) provides guidance for cutoff [...] Standards of Medical Care in Diabetes 2016, [place] [employer]. Diabetes Care. 2016.39(Suppl 1). Performed By: #### 2 4362-6, ####[facility] LABIA [id number] [place] [address] [place] Phosphate [Mass/Vol] 2.8 mg/dL Normal 2.7-4.8 [facility] Comment on above: Order Comment: Speci men Type: BLOOD SPECIMENOrdering Facility: [facility] Address: [address] [place] [address] Performed By: #### 2 4362-6, ####[facility] [id number] [place] [address] [place] Potassium [Moles/Vol] 3.8 mmol/L Normal 3.7-5.1 [facility] Comment on above: Order Comment: Speci men Type: BLOOD SPECIMENOrdering Facility: [facility] Address: [address] [place] [id number] Performed By: #### 2 4362-6, ####[facility] LABIA [id number] [place] [address] [place] Sodium [Moles/Vol] 140 mmol/L Normal 136-144 [facility] Comment on above: Order Comment: Speci men Type: BLOOD SPECIMENOrdering Facility: [facility] Address: [address] [place] [address] Performed By: #### 2 4362-6, ####[facility] LABCLIA [id number] [place] [address] [place] Urea nitrogen [Mass/Vol] 26 mg/dL High 9-24 [facility] Comment on above: Order Comment: Speci men Type: BLOOD SPECIMENOrdering Facility: [facility] Address: [address] [place] [address] Performed By: #### 2 4362-6, ####[facility] LABIA [id number] [place] [id number] [place] THERAPY NTon 05-13-2024 THERAPY NT Normal [facility] CBC panel Auto (Bld)on 05-12 Erythrocyte distribution width (RBC) [Ratio] 20.7 % High 11.5-15.0 [facility] Comment on above: Order Comment: Speci men Type: BLOOD SPECIMENOrdering Facility: [facility] Address: [address] [place] [address] Performed By: #### 5 8410-2 ####[facility] LABIA [id number] [place] [address] [place] Hematocrit (Bld) [Volume fraction] 28.1 % Low 39.0-51.0 [facility] Comment on above: Order Comment: Speci men Type: BLOOD SPECIMENOrdering Facility: [facility] Address: [address] [place] [address] Performed By: #### 5 8410-2 ####[facility] LABIA [id number] [place] [id number] [place] Hemoglobin (Bld) [Mass/Vol] 8.0 g/dL Low 13.0-17.0 [facility] Comment on above: Order Comment: Speci men Type: BLOOD SPECIMENOrdering Facility: [facility] Address: [address] [place] [address] Performed By: #### 5 8410-2 ####[facility] [id number] [place] [address] [place] MCH (RBC) [Entitic mass] 29.3 pg Normal 26.0-34.0 [facility] Comment on above: Order Comment: Speci men Type: BLOOD SPECIMENOrdering Facility: [facility] Address: [address] [place] [address] Performed By: #### 5 8410-2 ####[facility] [id number] [place] [address] [place] MCHC (RBC) [Mass/Vol] 28.5 g/dL Low 30.5-36.0 [facility] Comment on above: Order Comment: Speci men Type: BLOOD SPECIMENOrdering Facility: [facility] Address: [address] [place] [address] Performed By: #### 5 8410-2 ####[facility] [id number] [place] [address] [place] MCV (RBC) [Entitic vol] 102.9 fL High 80.0-100.0 [facility] Comment on above: Order Comment: Speci men Type: BLOOD SPECIMENOrdering Facility: [facility] Address: [address] [place] [address] Performed By: #### 5 8410-2 ####[facility] [id number] [place] [address] [place] Nucleated RBC (Bld) [#/Vol] 10*3/uL Normal <0.01 [facility] Comment on above: Order Comment: Speci men Type: BLOOD SPECIMENOrdering Facility: ST. [facility] Address: [address] [place] [address] Performed By: #### 5 8410-2 ####[facility] [id number] [place] [address] [place] Platelet mean volume (Bld) [Entitic vol] 10.6 fL Normal 9.0-12.7 [facility] Comment on above: Order Comment: Speci men Type: BLOOD SPECIMENOrdering Facility: [facility] Address: [address] [place] [address] Performed By: #### 5 8410-2 ####[facility] [id number] [place] [address] [place] Platelets (Bld) [#/Vol] 182 10*3/uL Normal 150-400 [facility] Comment on above: Order Comment: Speci men Type: BLOOD SPECIMENOrdering Facility: [facility] Address: [address] [place] [address] Performed By: #### 5 8410-2 ####[facility] LAB[facility] [id number] [place] [address] [place] RBC (Bld) [#/Vol] 2.73 10*6/uL Low 4.20-6.00 [facility] Comment on above: Order Comment: Speci men Type: BLOOD SPECIMENOrdering Facility: [facility] Address: [address] [place] [address] Performed By: #### 5 8410-2 ####[facility] LAB[facility] [id number] [place] [address] [place] WBC (Bld) [#/Vol] 4.96 10*3/uL Normal 3.70-11.00 [facility] Comment on above: Order Comment: Speci men Type: BLOOD SPECIMENOrdering Facility: [facility] Address: [address] [place] [address] Performed By: #### 5 8410-2 ####[facility] LABIA [id number] [place] [address] [place] PT panel Coag (PPP)on 2023 INR Coag (PPP) [Relative time] 1.3 {INR} Normal 0.9-1.3 [facility] Comment on above: Order Comment: Dylan olvera Type: BLOOD SPECIMENOrdering Facility: [facility] Address: [address] [place] [address] Result Comment: Loulou min K Antagonist (VKA) Therapeutic Range: INR 2 to 3 (Target INR of 2.5)Note: For patients treated with VKA drugs, such as warfarin, the [place] [employer] 2012 Guideline recommends [...] al. Chest 2012, 141:7S-47SNishimura RA, et al. [facility] 2017, 70: 252-289 Performed By: #### P TTAC, 86001-3 ####[facility] [id number] [place] [address] [place] PT Coag (PPP) [Time] 13.5 s High 9.7-13.0 [facility] Comment on above: Order Comment: Dylan olvera Type: BLOOD SPECIMENOrdering Facility: [facility] Address: [address] [place] [address] Performed By: #### P TTAC, 24219-6 ####[facility] [id number] [place] [address] [place] PTT, ANTICOAGULANT THERAPYon 05-12-2024 aPTT Coag (PPP) [Time] 43.6 s High 23.0-32.4 [facility] Comment on above: Order Comment: Dylan olvera Type: BLOOD SPECIMENOrdering Facility: [facility] Address: [address] [place] [address] Performed By: #### P TTAC ####[facility] LAB[facility] [id number] [place] [address] [place] aPTT Coag (PPP) [Time] 106.6 s High 23.0-32.4 [facility] Comment on above: Order Comment: Speci men Type: BLOOD SPECIMENOrdering Facility: [facility] Address: [address] [place] [address] Performed By: #### P TTAC ####[facility] LAB[facility] [id number] [place] [address] [place] aPTT Coag (PPP) [Time] 42.0 s High 23.0-32.4 [facility] Comment on above: Order Comment: Speci men Type: BLOOD SPECIMENOrdering Facility: [facility] Address: [address] [place] [address] Performed By: #### P TTAC, 69860-5 ####[facility] [id number] [place] [address] [place] Renal function 2000 panelon 05-12-2024 Albumin [Mass/Vol] 3.2 g/dL Low 3.9-4.9 [facility] Comment on above: Order Comment: Speci men Type: BLOOD SPECIMENOrdering Facility: [facility] Address: [address] [place] [address] Performed By: #### 2 4362-6 ####[facility] [id number] [place] [address] [place] Anion gap [Moles/Vol] 10 mmol/L Normal 8-15 [facility] Comment on above: Order Comment: Speci men Type: BLOOD SPECIMENOrdering Facility: [facility] Address: [address] [place] [address] Performed By: #### 2 4362-6 ####[facility] [id number] [place] [address] [place] Calcium [Mass/Vol] 8.6 mg/dL Normal 8.5-10.2 [facility] Comment on above: Order Comment: Speci men Type: BLOOD SPECIMENOrdering Facility: [facility] Address: [address] [place] [address] Performed By: #### 2 4362-6 ####[facility]CL[facility] [id number] [place] [address] [place] Chloride [Moles/Vol] 106 mmol/L Normal 98-107 [facility] Comment on above: Order Comment: Speci men Type: BLOOD SPECIMENOrdering Facility: [facility] Address: [address] [place] [address] Performed By: #### 2 4362-6 ####[facility] [id number] [place] [address] [place] CO2 [Moles/Vol] 23 mmol/L Normal 22-30 [facility] Comment on above: Order Comment: Speci men Type: BLOOD SPECIMENOrdering Facility: [facility] Address: [address] [place] [address] Performed By: #### 2 4362-6 ####[facility] [id number] [place] [address] [place] Creatinine [Mass/Vol] 2.22 mg/dL High 0.73-1.22 [facility] Comment on above: Order Comment: Speci men Type: BLOOD SPECIMENOrdering Facility: [facility] Address: [address] [place] [address] Performed By: #### 2 4362-6 ####[facility] [id number] [place] [address] [place] Creatinine and Glomerular filtration rate.predicted panel (S/P/Bld) 29 mL/min/1.73m??? Low >=60 [facility] Comment on above: Order Comment: Speci men Type: BLOOD SPECIMENOrdering Facility: [facility] Address: [address] [place] [address] Result Comment: Etta mated Glomerular Filtration Rate [...] actual GFR. Performed By: #### 2 4362-6 ####[facility] [id number] [place] [address] [place] Glucose [Mass/Vol] 118 mg/dL High 74-99 [facility] Comment on above: Order Comment: Dylan olvera Type: BLOOD SPECIMENOrdering Facility: [facility] Address: [address] [place] [address] Result Comment: The [place] [employer] (ADA) provides guidance for cutoff [...] Standards of Medical Care in Diabetes 2016, [place] [employer]. Diabetes Care. 2016.39(Suppl 1). Performed By: #### 2 4362-6 ####[facility]CL[facility] [id number] [place] [address] [place] Phosphate [Mass/Vol] 2.6 mg/dL Low 2.7-4.8 [facility] Comment on above: Order Comment: Dylan olvera Type: BLOOD SPECIMENOrdering Facility: [facility] Address: [address] [place] [address] Performed By: #### 2 4362-6 ####[facility] [id number] [place] [address] [place] Potassium [Moles/Vol] 3.9 mmol/L Normal 3.7-5.1 [facility] Comment on above: Order Comment: Speci men Type: BLOOD SPECIMENOrdering Facility: [facility] Address: [address] [place] [address] Performed By: #### 2 4362-6 ####[facility] [id number] [place] [address] [place] Sodium [Moles/Vol] 139 mmol/L Normal 136-144 [facility] Comment on above: Order Comment: Speci men Type: BLOOD SPECIMENOrdering Facility: [facility] Address: [address] [place] [address] Performed By: #### 2 4362-6 ####[facility] [id number] [place] [address] [place] Urea nitrogen [Mass/Vol] 28 mg/dL High 9-24 [facility] Comment on above: Order Comment: Speci men Type: BLOOD SPECIMENOrdering Facility: [facility] Address: [address] [place] [address] Performed By: #### 2 4362-6 ####[facility] [id number] [place] [address] [place] THERAPY NTon 05-12-2024 THERAPY NT Normal [facility] CASE MGT INIT ASSESon 2023 CASE MGT INIT ASSES Normal [facility] CBC panel Auto (Bld)on 05-11 Erythrocyte distribution width (RBC) [Ratio] 20.9 % High 11.5-15.0 [facility] Comment on above: Order Comment: Speci men Type: BLOOD SPECIMENOrdering Facility: [facility] Address: [address] [place] [address] Performed By: #### 5 8410-2 ####[facility]CL[facility] [id number] [place] [address] [place] Hematocrit (Bld) [Volume fraction] 27.6 % Low 39.0-51.0 [facility] Comment on above: Order Comment: Speci men Type: BLOOD SPECIMENOrdering Facility: [facility] Address: [address] [place] [address] Performed By: #### 5 8410-2 ####[facility] [id number] [place] [address] [place] Hemoglobin (Bld) [Mass/Vol] 8.1 g/dL Low 13.0-17.0 [facility] Comment on above: Order Comment: Speci men Type: BLOOD SPECIMENOrdering Facility: [facility] Address: [address] [place] [address] Performed By: #### 5 8410-2 ####[facility] [id number] [place] [address] [place] MCH (RBC) [Entitic mass] 29.8 pg Normal 26.0-34.0 [facility] Comment on above: Order Comment: Speci men Type: BLOOD SPECIMENOrdering Facility: [facility] Address: [address] [place] [address] Performed By: #### 5 8410-2 ####[facility] [id number] [place] [address] [place] MCHC (RBC) [Mass/Vol] 29.3 g/dL Low 30.5-36.0 [facility] Comment on above: Order Comment: Speci men Type: BLOOD SPECIMENOrdering Facility: [facility] Address: [address] [place] [address] Performed By: #### 5 8410-2 ####[facility] [id number] [place] [address] [place] MCV (RBC) [Entitic vol] 101.5 fL High 80.0-100.0 [facility] Comment on above: Order Comment: Speci men Type: BLOOD SPECIMENOrdering Facility: [facility] Address: [address] [place] [address] Performed By: #### 5 8410-2 ####[facility] [id number] [place] [address] [place] Nucleated RBC (Bld) [#/Vol] 10*3/uL Normal <0.01 [facility] Comment on above: Order Comment: Speci men Type: BLOOD SPECIMENOrdering Facility: [facility] Address: [address] [place] [address] Performed By: #### 5 8410-2 ####[facility] [id number] [place] [address] [place] Platelet mean volume (Bld) [Entitic vol] 10.4 fL Normal 9.0-12.7 [facility] Comment on above: Order Comment: Speci men Type: BLOOD SPECIMENOrdering Facility: [facility] Address: [address] [place] [address] Performed By: #### 5 8410-2 ####[facility] [id number] [place] [address] [place] Platelets (Bld) [#/Vol] 182 10*3/uL Normal 150-400 [facility] Comment on above: Order Comment: Speci men Type: BLOOD SPECIMENOrdering Facility: [facility] Address: [address] [place] [address] Performed By: #### 5 8410-2 ####[facility] [id number] [place] [address] [place] RBC (Bld) [#/Vol] 2.72 10*6/uL Low 4.20-6.00 [facility] Comment on above: Order Comment: Speci men Type: BLOOD SPECIMENOrdering Facility: [facility] Address: [address] [place], [place] [address] Performed By: #### 5 8410-2 ####[facility] [id number] [place] [address] [place] WBC (Bld) [#/Vol] 5.06 10*3/uL Normal 3.70-11.00 [facility] Comment on above: Order Comment: Speci men Type: BLOOD SPECIMENOrdering Facility: [facility] Address: [address] [place] [address] Performed By: #### 5 8410-2 ####[facility] [id number] [place] [address] [place] NURSING PROGon 05-11-2024 NURSING PROG Normal [facility] PTT, ANTICOAGULANT THERAPYon 05-11-2024 aPTT Coag (PPP) [Time] 55.4 s High 23.0-32.4 [facility] Comment on above: Order Comment: Speci men Type: BLOOD SPECIMENOrdering Facility: [facility] Address: [address] [place] [address] Performed By: #### P TTAC ####[facility] [id number] [address] [place] aPTT Coag (PPP) [Time] 61.4 s High 23.0-32.4 [facility] Comment on above: Order Comment: Speci men Type: BLOOD SPECIMENOrdering Facility: [facility] Address: [address] [place] [address] Performed By: #### P TTAC ####[facility] [id number] [place] [address] [place] aPTT Coag (PPP) [Time] 65.2 s High 23.0-32.4 [facility] Comment on above: Order Comment: Speci men Type: BLOOD SPECIMENOrdering Facility: [facility] Address: [address] [place] [address] Performed By: #### P TTAC ####[facility] [id number] [place] [address] [place] Renal function 2000 panelon 05-11-2024 Albumin [Mass/Vol] 3.3 g/dL Low 3.9-4.9 [facility] Comment on above: Order Comment: Speci men Type: BLOOD SPECIMENOrdering Facility: [facility] Address: [address] [place] [address] Performed By: #### 2 4362-6 ####[facility] [id number] [place] [address] [place] Anion gap [Moles/Vol] 10 mmol/L Normal 8-15 [facility] Comment on above: Order Comment: Speci men Type: BLOOD SPECIMENOrdering Facility: [facility] Address: [address] [place] [address] Performed By: #### 2 4362-6 ####[facility] [id number] [place] [address] [place] Calcium [Mass/Vol] 8.3 mg/dL Low 8.5-10.2 [facility] Comment on above: Order Comment: Speci men Type: BLOOD SPECIMENOrdering Facility: [facility] Address: [address] [place] [address] Performed By: #### 2 4362-6 ####[facility] [id number] [place] [address] [place] Chloride [Moles/Vol] 106 mmol/L Normal 98-107 [facility] Comment on above: Order Comment: Speci men Type: BLOOD SPECIMENOrdering Facility: [facility] Address: [address] [place] [address] Performed By: #### 2 4362-6 ####[facility] [id number] [place] [address] [place] CO2 [Moles/Vol] 24 mmol/L Normal 22-30 [facility] Comment on above: Order Comment: Speci men Type: BLOOD SPECIMENOrdering Facility: [facility] Address: [address] [place] [address] Performed By: #### 2 4362-6 ####[facility] [id number] [place] [address] [place] Creatinine [Mass/Vol] 2.05 mg/dL High 0.73-1.22 [facility] Comment on above: Order Comment: Speci men Type: BLOOD SPECIMENOrdering Facility: [facility] Address: [address] [place] [address] Performed By: #### 2 4362-6 ####[facility] [id number] [place] [address] [place] Creatinine and Glomerular filtration rate.predicted panel (S/P/Bld) 32 mL/min/1.73m??? Low >=60 [facility] Comment on above: Order Comment: Speci men Type: BLOOD SPECIMENOrdering Facility: [facility] Address: [address] [place] [address] Result Comment: Etta mated Glomerular Filtration Rate [...] actual GFR. Performed By: #### 2 4362-6 ####[facility] [id number] [place] [address] [place] Glucose [Mass/Vol] 103 mg/dL High 74-99 [facility] Comment on above: Order Comment: Speci men Type: BLOOD SPECIMENOrdering Facility: [facility] Address: [address] [place] [address] Result Comment: The [place] [employer] (ADA) provides guidance for cutoff [...] Standards of Medical Care in Diabetes 2016, [place] [employer]. Diabetes Care. 2016.39(Suppl 1). Performed By: #### 2 4362-6 ####[facility] [id number] [place] [address] [place] Phosphate [Mass/Vol] 2.3 mg/dL Low 2.7-4.8 [facility] Comment on above: Order Comment: Speci men Type: BLOOD SPECIMENOrdering Facility: [facility] Address: [address] [place] [address] Performed By: #### 2 4362-6 ####[facility] [id number] [place] [address] [place] Potassium [Moles/Vol] 3.8 mmol/L Normal 3.7-5.1 [facility] Comment on above: Order Comment: Speci men Type: BLOOD SPECIMENOrdering Facility: [facility] Address: [address] [place] [address] Performed By: #### 2 4362-6 ####[facility] [id number] [place] [address] [place] Sodium [Moles/Vol] 140 mmol/L Normal 136-144 [facility] Comment on above: Order Comment: Speci men Type: BLOOD SPECIMENOrdering Facility: [facility] Address: [address] [place] [address] Performed By: #### 2 4362-6 ####[facility] [id number] [place] [address] [place] Urea nitrogen [Mass/Vol] 30 mg/dL High 9-24 [facility] Comment on above: Order Comment: Speci men Type: BLOOD SPECIMENOrdering Facility: [facility] Address: [address] [place] [address] Performed By: #### 2 4362-6 ####[facility] [id number] [place] [address] [place] THERAPY NTon 05-11-2024 THERAPY NT Normal [facility] THERAPY NT Normal [facility] CBC panel Auto (Bld)on 05-10 Erythrocyte distribution width (RBC) [Ratio] 21.3 % High 11.5-15.0 [facility] Comment on above: Order Comment: Speci men Type: BLOOD SPECIMENOrdering Facility: [facility] Address: [address] [place] [address] Performed By: #### 5 8410-2 ####[facility] [id number] [place] [address] [place] Hematocrit (Bld) [Volume fraction] 29.8 % Low 39.0-51.0 [facility] Comment on above: Order Comment: Speci men Type: BLOOD SPECIMENOrdering Facility: [facility] Address: [address] [place] [address] Performed By: #### 5 8410-2 ####[facility]CL[facility] [id number] [place] [address] [place] Hemoglobin (Bld) [Mass/Vol] 8.6 g/dL Low 13.0-17.0 [facility] Comment on above: Order Comment: Speci men Type: BLOOD SPECIMENOrdering Facility: [facility] Address: [address] [place] [address] Performed By: #### 5 8410-2 ####[facility]CL[facility] [id number] [place] [address] [place] MCH (RBC) [Entitic mass] 30.0 pg Normal 26.0-34.0 [facility] Comment on above: Order Comment: Speci men Type: BLOOD SPECIMENOrdering Facility: [facility] Address: [address] [place] [address] Performed By: #### 5 8410-2 ####[facility] [id number] [place] [address] [place] MCHC (RBC) [Mass/Vol] 28.9 g/dL Low 30.5-36.0 [facility] Comment on above: Order Comment: Speci men Type: BLOOD SPECIMENOrdering Facility: [facility] Address: [address] [place] [address] Performed By: #### 5 8410-2 ####[facility] [id number] [place] [address] [place] MCV (RBC) [Entitic vol] 103.8 fL High 80.0-100.0 [facility] Comment on above: Order Comment: Speci men Type: BLOOD SPECIMENOrdering Facility: [facility] Address: [address] [place] [address] Performed By: #### 5 8410-2 ####[facility] [id number] [place] [address] [place] Nucleated RBC (Bld) [#/Vol] 0.02 10*3/uL High <0.01 [facility] Comment on above: Order Comment: Speci men Type: BLOOD SPECIMENOrdering Facility: [facility] Address: [address] [place] [address] Performed By: #### 5 8410-2 ####[facility] [id number] [place] [address] [place] Platelet mean volume (Bld) [Entitic vol] 10.6 fL Normal 9.0-12.7 [facility] Comment on above: Order Comment: Speci men Type: BLOOD SPECIMENOrdering Facility: [facility] Address: [address] [place] [address] Performed By: #### 5 8410-2 ####[facility] [id number] [place] [address] [place] Platelets (Bld) [#/Vol] 188 10*3/uL Normal 150-400 [facility] Comment on above: Order Comment: Speci men Type: BLOOD SPECIMENOrdering Facility: [facility] Address: [address] [place] [address] Performed By: #### 5 8410-2 ####[facility] [id number] [place] [address] [place] RBC (Bld) [#/Vol] 2.87 10*6/uL Low 4.20-6.00 [facility] Comment on above: Order Comment: Speci men Type: BLOOD SPECIMENOrdering Facility: [facility] Address: [address] [place] [address] Performed By: #### 5 8410-2 ####[facility] [id number] [place] [address] [place] WBC (Bld) [#/Vol] 4.87 10*3/uL Normal 3.70-11.00 [facility] Comment on above: Order Comment: Speci men Type: BLOOD SPECIMENOrdering Facility: [facility] Address: [address] [place] [address] Performed By: #### 5 8410-2 ####[facility] [id number] [place] [address] [place] NURSING PROGon 05-10-2024 NURSING PROG Normal [facility] PTT, ANTICOAGULANT THERAPYon 05-10-2024 aPTT Coag (PPP) [Time] 64.0 s High 23.0-32.4 [facility] Comment on above: Order Comment: Speci men Type: BLOOD SPECIMENOrdering Facility: [facility] Address: [address] [place] [address] Performed By: #### P TTAC ####[facility] [id number] [place] [address] [place] aPTT Coag (PPP) [Time] 46.0 s High 23.0-32.4 [facility] Comment on above: Order Comment: Speci men Type: BLOOD SPECIMENOrdering Facility: [facility] Address: [address] [place] [address] Performed By: #### P TTAC ####[facility] [id number] [place] [address] [place] aPTT Coag (PPP) [Time] 87.4 s High 23.0-32.4 [facility] Comment on above: Order Comment: Speci men Type: BLOOD SPECIMENOrdering Facility: [facility] Address: [address] [place] [address] Performed By: #### P TTAC ####[facility] LABCLIA [id number] [place] [address] [place] TYPE + SCREENon 05-10-2024 ABO O Normal [facility] Comment on above: Order Comment: Speci men Type: BLOOD SPECIMENOrdering Facility: [facility] Address: [address] [place] [address] Performed By: #### T SCR ####[facility] BLOOD BANKIA [id number] [place] [address] [place] HISTORICAL AB SCR STATUS Negative Normal [facility] Comment on above: Order Comment: Speci men Type: BLOOD SPECIMENOrdering Facility[facility] Address: [address] [place] [address] Performed By: #### T SCR ####CC [facility] BLOOD BANKCLIA [id number] [place] [address] [place] Rh Nom (Bld) Positive Normal [facility] Comment on above: Order Comment: Speci men Type: BLOOD SPECIMENOrdering Facility: [facility] Address: [address] [place] [address] Performed By: #### T SCR ####CC [facility] BLOOD BANKCLIA [id number] [address] [address] [place] [facility] TYPE AND SCREEN EXPIRATION 05/13/2024 23:59 Normal [facility] Comment on above: Order Comment: Speci men Type: BLOOD SPECIMENOrdering Facility: [facility] Address: [address] [place] [address] Performed By: #### T SCR ####CC [facility] BLOOD BANKCLIA [id number] [place] [address] [place] Basic metabolic 2000 panelon 05-09-2024 Anion gap [Moles/Vol] 10 mmol/L Normal 8-15 [facility] Comment on above: Order Comment: Speci men Type: BLOOD SPECIMEN [facility] Address: [address] [place] [address] Performed By: #### 3 4528-0, PTTAC #### [facility] CLIA [id number] [address] [place] [address] [place] Calcium [Mass/Vol] 8.6 mg/dL Normal 8.5-10.2 [facility] Comment on above: Order Comment: Speci men Type: BLOOD SPECIMEN [facility] Address: [address] [place] [address] Performed By: #### 3 4528-0, PTTAC #### [facility] CLIA [id number] [address] [place] [address] [place] Chloride [Moles/Vol] 105 mmol/L Normal 98-107 [facility] Comment on above: Order Comment: Speci men Type: BLOOD SPECIMEN [facility] Address: [address] [place] [address] Performed By: #### 3 4528-0, PTTAC #### [facility] CLIA [id number] [address] [place] [address] [place] CO2 [Moles/Vol] 24 mmol/L Normal 22-30 [facility] ital Comment on above: Order Comment: Speci men Type: BLOOD SPECIMEN [facility] Address: [address] [place] [address] Performed By: #### 3 4528-0, PTTAC #### [facility] [place] [id number] [address] [place] [address] [place] Creatinine [Mass/Vol] 1.96 mg/dL High 0.73-1.22 [facility] Comment on above: Order Comment: Speci men Type: BLOOD SPECIMEN [facility] Address: [address] [place] [address] Performed By: #### 3 4528-0, PTTAC #### [facility] CLIA [id number] STATES OF [facility] Creatinine and Glomerular filtration rate.predicted panel (S/P/Bld) 34 mL/min/1.73m??? Low >=60 [facility] Comment on above: Order Comment: Speci men Type: BLOOD SPECIMEN [facility] Address: [address] [place] [address] Result Comment: Etta mated Glomerular Filtration Rate [...] Performed By: #### 3 4528-0, PTTAC #### [facility] [place] [id number] [address] [place] [id number] [place] Glucose [Mass/Vol] 114 mg/dL High 74-99 [facility] Comment on above: Order Comment: Speci men Type: BLOOD SPECIMEN [facility] Address: [address] [place] [address] Result Comment: The [place] Diabetes Association (ADA) provides guidance for cutoff [...] Standards of Medical Care in Diabetes 2016, [place] [employer]. Diabetes Care. 2016.39(Suppl 1). Performed By: #### 3 4528-0, PTTAC #### [facility] CLIA [id number] [address] [place] [address] [place] Potassium [Moles/Vol] 4.1 mmol/L Normal 3.7-5.1 [facility] Comment on above: Order Comment: Speci men Type: BLOOD SPECIMEN [facility] Address: [address] [place] [address] Performed By: #### 3 4528-0, PTTAC #### [facility] CLIA [id number] [address] [place] [address] [place] Sodium [Moles/Vol] 139 mmol/L Normal 136-144 [facility] Comment on above: Order Comment: Rozi may Type: BLOOD SPECIMEN [facility] Address: [address] [place] [address] Performed By: #### 3 4528-0, PTTAC #### [facility] CLIA [id number] [address] [place] [address] [place] Urea nitrogen [Mass/Vol] 36 mg/dL High 9-24 [facility] Comment on above: Order Comment: Rozi men Type: BLOOD SPECIMEN [facility] Address: [address] [place] [address] Performed By: #### 3 4528-0, PTTAC #### [facility] CLIA [id number] [address] [facility] [place] [address] [place] CBC panel Auto (Bld)on 05-09 Erythrocyte distribution width (RBC) [Ratio] 21.8 % High 11.5-15.0 [facility] Comment on above: Order Comment: Speci men Type: BLOOD SPECIMENOrdering Facility: [facility] Address: [address] [place] [address] Performed By: #### 5 8410-2 ####[facility] LABIA [id number] [place] [address] [place] Hematocrit (Bld) [Volume fraction] 28.0 % Low 39.0-51.0 [facility] Comment on above: Order Comment: Speci men Type: BLOOD SPECIMENOrdering Facility: [facility] Address: [address] [place] [address] Performed By: #### 5 8410-2 ####[facility] LABIA [id number] [address] [place] Hemoglobin (Bld) [Mass/Vol] 8.3 g/dL Low 13.0-17.0 [facility] Comment on above: Order Comment: Speci men Type: BLOOD SPECIMENOrdering Facility: [facility] Address: [address] [place] [address] Performed By: #### 5 8410-2 ####[facility] LABIA [id number] [place] [address] [place] MCH (RBC) [Entitic mass] 30.3 pg Normal 26.0-34.0 [facility] Comment on above: Order Comment: Speci men Type: BLOOD SPECIMENOrdering Facility: [facility] Address: [address] [place] [address] Performed By: #### 5 8410-2 ####[facility] LABIA [id number] [place] [address] [place] MCHC (RBC) [Mass/Vol] 29.6 g/dL Low 30.5-36.0 [facility] Comment on above: Order Comment: Speci men Type: BLOOD SPECIMENOrdering Facility: [facility] Address: [address] [place] [address] Performed By: #### 5 8410-2 ####[facility] LABIA [id number] [place] [address] [place] MCV (RBC) [Entitic vol] 102.2 fL High 80.0-100.0 [facility] Comment on above: Order Comment: Speci men Type: BLOOD SPECIMENOrdering Facility: [facility] Address: [address] [place] [address] Performed By: #### 5 8410-2 ####[facility] [id number] [place] [address] [place] Nucleated RBC (Bld) [#/Vol] 10*3/uL Normal <0.01 [facility] Comment on above: Order Comment: Speci men Type: BLOOD SPECIMENOrdering Facility: [facility] Address: [address] [place] [address] Performed By: #### 5 8410-2 ####[facility] [id number] [place] [address] [place] Platelet mean volume (Bld) [Entitic vol] 10.1 fL Normal 9.0-12.7 [facility] Comment on above: Order Comment: Speci men Type: BLOOD SPECIMENOrdering Facility: [facility] Address: [address] [place] [address] Performed By: #### 5 8410-2 ####[facility] LABIA [id number] [place] [address] [place] Platelets (Bld) [#/Vol] 170 10*3/uL Normal 150-400 [facility] Comment on above: Order Comment: Speci men Type: BLOOD SPECIMENOrdering Facility: [facility] Address: [address] [place] [address] Performed By: #### 5 8410-2 ####[facility] LABCLIA [id number] [place] [address] [place] RBC (Bld) [#/Vol] 2.74 10*6/uL Low 4.20-6.00 [facility] Comment on above: Order Comment: Speci men Type: BLOOD SPECIMENOrdering Facility: [facility] Address: [address] [place] [address] Performed By: #### 5 8410-2 ####[facility] LABCLIA [id number] [place] [address] [place] WBC (Bld) [#/Vol] 5.04 10*3/uL Normal 3.70-11.00 [facility] Comment on above: Order Comment: Speci men Type: BLOOD SPECIMENOrdering Facility: [facility] Address: [address] [place] [address] Performed By: #### 5 8410-2 ####[facility] LABIA [id number] [place] [address] [place] Erythrocyte distribution width (RBC) [Ratio] 21.8 % High 11.5-15.0 [facility] Comment on above: Order Comment: Speci men Type: BLOOD SPECIMEN [facility] Address: [address] [place] [address] Performed By: #### 5 8410-2 #### [facility] CLIA [id number] [address] [place] [address] [place] Hematocrit (Bld) [Volume fraction] 27.6 % Low 39.0-51.0 [facility] Comment on above: Order Comment: Speci men Type: BLOOD SPECIMEN [facility] Address: [address] [place] [address] Performed By: #### 5 8410-2 #### [facility] CLIA [id number] [address] [place] [address] [place] Hemoglobin (Bld) [Mass/Vol] 8.2 g/dL Low 13.0-17.0 [facility] Comment on above: Order Comment: Speci men Type: BLOOD SPECIMEN [facility] Address: [address] [place] [address] Performed By: #### 5 8410-2 #### [facility] CLIA [id number] [address] [place] MCH (RBC) [Entitic mass] 30.5 pg Normal 26.0-34.0 [facility] Comment on above: Order Comment: Speci men Type: BLOOD SPECIMEN [facility] Address: [address] [place] [address] Performed By: #### 5 8410-2 #### [facility] CLIA [id number] [address] [place] MCHC (RBC) [Mass/Vol] 29.7 g/dL Low 30.5-36.0 [facility] Comment on above: Order Comment: Speci men Type: BLOOD SPECIMEN [facility] Address: [address] [place] [address] Performed By: #### 5 8410-2 #### [facility] IA [id number] [address] [place] [address] [place] MCV (RBC) [Entitic vol] 102.6 fL High 80.0-100.0 [facility] Comment on above: Order Comment: Speci men Type: BLOOD SPECIMEN [facility] Address: [address] [place] [address] Performed By: #### 5 8410-2 #### [facility] CLIA [id number] [address] [place] [address] [place] Nucleated RBC (Bld) [#/Vol] 0.02 10*3/uL High <0.01 [facility] Comment on above: Order Comment: Speci men Type: BLOOD SPECIMEN [facility] Address: [address] [place] [address] Performed By: #### 5 8410-2 #### [facility] CLIA [id number] [address] [facility] [place] [address] [place] Platelet mean volume (Bld) [Entitic vol] 10.5 fL Normal 9.0-12.7 [facility] Comment on above: Order Comment: Speci men Type: BLOOD SPECIMEN [facility] Address: [address] [place] [address] Performed By: #### 5 8410-2 #### [facility] CLIA [id number] [address] [place] [address] [place] Platelets (Bld) [#/Vol] 174 10*3/uL Normal 150-400 [facility] Comment on above: Order Comment: Speci men Type: BLOOD SPECIMEN [facility] Address: [address] [place] [address] Performed By: #### 5 8410-2 #### [facility] IA [id number] [address] [place] [address] [place] RBC (Bld) [#/Vol] 2.69 10*6/uL Low 4.20-6.00 [facility] Comment on above: Order Comment: Speci men Type: BLOOD SPECIMEN [facility] Address: [address] [place] [address] Performed By: #### 5 8410-2 #### [facility] IA [id number] [address] [place] [address] [place] WBC (Bld) [#/Vol] 5.62 10*3/uL Normal 3.70-11.00 [facility] Comment on above: Order Comment: Speci men Type: BLOOD SPECIMEN [facility] Address: [address] [place] [address] Performed By: #### 5 8410-2 #### [facility] CLIA [id number] [address] [facility] [place] [address] [facility] [place] CNDSon 05-09-2024 CNDS HNO ID: [id number] Author: CHERYL LEES MD Service: Hospital Medicine Author Type: Physician Type: Discharge Summary Filed: 05/09/2024 22:08 Note Text: DISCHARGE SUMMARY PATIENT NAME: José Miugel Antonio Jr. ADMISSION DATE: 05/06/2024 DISCHARGE DATE: [...] graft) (POA: Yes) 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 (POA: Yes) Chronic systolic CHF (congestive heart failure) (HCC) (POA: Yes) Severe mitral regurgitation (POA: Yes) Atrial fibrillation (HCC) (POA: Yes) LV (left ventricular) mural thrombus (POA: Yes) Hyperlipidemia (POA: Yes) Type 2 diabetes mellitus with diabetic chronic kidney disease, unspecified CKD stage, unspecified whether rn long term care insulin use (HCC) (POA: Yes) Stage 3b [...] male with hx of ICM s/p ICD 2019, CHFrEF (EF 17%), severe MR s/p MV clip 02/18/2024, s/p left carotid stenting 03/09/24, 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 Pt had repeat ECHO RN PERINATAL and brought to ER due to ongoing [...] ED, VSS. Hb 8.8, baseline 11-12. ProBNP 78159 .CXR: left pleural effusions (new compares to 02/2024). Pt has crimson colored stool that is guaiac positive. Pt was evaluated by GI and cardiology while admitted. Asa and xarelto were on hold and pt was started on hepatin gtt. H/H remained stable. Initial plan was EGD/colonoscopy on Saturday. 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 [facility] CONSULT PROGon 05-09-2024 CONSULT PROG HNO ID: [id number] Author: JOSÉ MIGUEL WHEELER PA-C Service: Cardiovascular Medicine Author Type: Physician Cdl B Driver Type: Consult Progress Note Filed: 05/09/2024 10:56 Note Text: [facility] CARDIOVASCULAR MEDICINE PROGRESS NOTE (Template ID [id number]) SERVICE DATE: 05/09/2024 SERVICE TIME: 0900 PRIMARY [...] systolic function is moderately decreased. - Percutaneous [id number] repair of the mitral valve with 1 [...] -- 05/06/24 2130 activity - mobilize patient (md,nd) VTE Prophylaxis: VTE prophylaxis appropriate ASSESSMENT AND PLAN Chronic systolic HF - TTE 05/06: LVEF 15% - s/p ICD - appears clinically compensated - GDMT: Toprol 25mg Farxiga on hold - Diuretic: lasix 40mg daily - strict I/O's, daily wts CAD - s/p CABG '(OTTO-LAD, SVG-OM, SVG-PDA) - C with patent OTTO and SVG to OM. Occluded SVG to PDA - stable - cont statin, ASA on hold VHD - Mod MR/TR LV thrombus - TTE as above - xarelto on hold in setting of anemia, IV heparin HLD - cont zetia, ator Plan of care to be discussed with Dr. De Los Santos Agree with transfer to [facility] for further evaluation and care José Miguel Wheeler PA-C Cardiology consults SIGNATURE: José Miguel Wheeler PA-C PATIENT NAME: José Miguel Antonio JrTitus DATE: May 09, 2024 TIME: 9:15 AM For communication after 5 pm on weekdays and after 12 pm on weekends, please page the following: - Clinical Cardiology patients on all floors: page [phone] - All other patients: after hours RYLIE page [phone] - For any urgent or emerge (more content not included)... Normal [facility] Comprehensive metabolic 2000 panelon 05-09-2024 Albumin [Mass/Vol] 3.4 g/dL Low 3.9-4.9 [facility] Comment on above: Order Comment: Speci men Type: BLOOD SPECIMENOrdering Facility: [facility] Address: [address] [place] [address] Performed By: #### 2 4323-8, 46015-1, 39476-3, 6-3 ####[facility] LABCLIA [id number] [address] [address] [place] ALP [Catalytic activity/Vol] 88 U/L Normal 38-113 [facility] Comment on above: Order Comment: Speci men Type: BLOOD SPECIMENOrdering Facility: [facility] Address: [address] [place] [address] Performed By: #### 2 4323-8, 62378-1, 23276-4, 6-3 ####[facility] LABCLIA [id number] [place] [address] [place] ALT [Catalytic activity/Vol] 11 U/L Normal 10-54 [facility] Comment on above: Order Comment: Speci men Type: BLOOD SPECIMENOrdering Facility: [facility] Address: [address] [place] [address] Performed By: #### 2 4323-8, 64425-6, 37407-7, 6-3 ####[facility] LABCLIA [id number] [address] [address] [place] Anion gap [Moles/Vol] 10 mmol/L Normal 8-15 [facility] Comment on above: Order Comment: Speci men Type: BLOOD SPECIMENOrdering Facility: [facility] Address: [address] [place] [address] Performed By: #### 2 4323-8, 05463-7, 61012-7, 6-3 ####[facility] LABCLIA [id number] [address] [address] [place] AST [Catalytic activity/Vol] 17 U/L Normal 14-40 [facility] Comment on above: Order Comment: Speci men Type: BLOOD SPECIMENOrdering Facility: [facility] Address: [address] [place] [address] Performed By: #### 2 4323-8, 51970-3, 84694-8, 3016-3 ####[facility] LABCLIA [id number] [address] [address] [place] Bilirubin [Mass/Vol] 0.7 mg/dL Normal 0.2-1.3 [facility] Comment on above: Order Comment: Speci men Type: BLOOD SPECIMENOrdering Facility: [facility] Address: [address] [place] [address] Performed By: #### 2 4323-8, 96024-1, 60474-2, 6-3 ####[facility] LABCLIA [id number] [place] [address] [place] Calcium [Mass/Vol] 8.9 mg/dL Normal 8.5-10.2 [facility] Comment on above: Order Comment: Speci men Type: BLOOD SPECIMENOrdering Facility: [facility] Address: [address] [place] [address] Performed By: #### 2 4323-8, 20635-4, , 6-3 ####[facility] LABIA [id number] [place] [address] [place] Chloride [Moles/Vol] 106 mmol/L Normal 98-107 [facility] Comment on above: Order Comment: Speci men Type: BLOOD SPECIMENOrdering Facility: [facility] Address: [address] [place] [address] Performed By: #### 2 4323-8, 27681-5, 16431-2, 6-3 ####[facility] LABIA [id number] [address] [address] [place] CO2 [Moles/Vol] 23 mmol/L Normal 22-30 [facility] Comment on above: Order Comment: Speci men Type: BLOOD SPECIMENOrdering Facility: [facility] Address: [address] [place], [place] [address] Performed By: #### 2 4323-8, 29042-3, 15906-1, 3015-3 ####[facility] LABCLIA [id number] [place] [id number] [place] Creatinine [Mass/Vol] 2.02 mg/dL High 0.73-1.22 [facility] Comment on above: Order Comment: Dylan olvera Type: BLOOD SPECIMENOrdering Facility: [facility] Address: [address] [place] [address] Performed By: #### 2 4323-8, 62626-7, , 3 ####[facility] LABIA [id number] [place] [address] [place] Creatinine and Glomerular filtration rate.predicted panel (S/P/Bld) 32 mL/min/1.73m??? Low >=60 [facility] Comment on above: Order Comment: Dylan olvera Type: BLOOD SPECIMENOrdering Facility: [facility] Address: [address] [place] [address] Result Comment: Etta mated Glomerular Filtration Rate [...] actual GFR. Performed By: #### 2 4323-8, 32582-6, , 3 ####[facility] LABIA [id number] [address] [address] [place] Glucose [Mass/Vol] 96 mg/dL Normal 74-99 [facility] Comment on above: Order Comment: Dylan olvera Type: BLOOD SPECIMENOrdering Facility: [facility] Address: [address] [place] [address] Result Comment: The [place] Diabetes Association (ADA) provides guidance for cutoff [...] Standards of Medical Care in Diabetes 2016, [place] [employer]. Diabetes Care. 2016.39(Suppl 1). Performed By: #### 2 4323-8, 61606-3, 11716-8, 6-3 ####[facility] LABIA [id number] [place] [address] [place] Potassium [Moles/Vol] 4.3 mmol/L Normal 3.7-5.1 [facility] Comment on above: Order Comment: Speci men Type: BLOOD SPECIMENOrdering Facility: [facility] Address: [address] [place] [address] Performed By: #### 2 4323-8, 09542-1, 55602-6, 6-3 ####[facility] LABIA [id number] [place] [address] [place] Protein [Mass/Vol] 6.0 g/dL Low 6.3-8.0 [facility] Comment on above: Order Comment: Rozi may Type: BLOOD SPECIMENOrdering Facility: [facility] Address: [address] [place], [place] [address] Performed By: #### 2 4323-8, 74621-7, 08128-7, 6-3 ####[facility] LABIA [id number] [place] [address] [place] Sodium [Moles/Vol] 139 mmol/L Normal 136-144 [facility] Comment on above: Order Comment: Rozi men Type: BLOOD SPECIMENOrdering Facility: [facility] Address: [address] [place] [address] Performed By: #### 2 4323-8, 66738-0, 26317-3, 6-3 ####[facility] LABCLIA [id number] [place] [address] [place] Urea nitrogen [Mass/Vol] 35 mg/dL High 06-09 [facility] Comment on above: Order Comment: Speci men Type: BLOOD SPECIMENOrdering Facility: [facility] Address: [address] [place] [address] Performed By: #### 2 4323-8, 14751-2, 55678-0, 3 ####[facility] LABIA [id number] [place] [address] [place] ECG COMPLETEon 05-09-2024 ECG COMPLETE Normal [facility] EKGon 05-09-2024 Electrocardiogram Ventricular Rate : 8 5 BPM Atrial Rate : 85 BPM P-R Interval : 181 ms QRS Duration : 123 ms Q-T Interval : 413 ms QTC Calculation(Bazett) : 492 ms Calculated P [place] : 78 degrees Calculated R [place] : -6 degrees Calculated T [place] : 135 degrees Sinus rhythm Multiform ventricular premature complexes Left bundle branch block Abnormal ECG Confirmed by SHERIE OSBORNE M.D. ([id number]) on 05/11/2024 3:03:05 PM NAME : JOSÉ MIGUEL ANTONIO PID : [id number] : 1940 Gender : Male Race : [...] Referred By : , Acquired by : [id number], [facility] Electrocardiogram Ventricular Rate : 8 5 BPM Atrial Rate : 85 BPM P-R Interval : 180 ms QRS Duration : 123 ms Q-T Interval : 406 ms QTC Calculation(Bazett) : 483 ms Calculated P [place] : 69 degrees Calculated R [place] : -7 degrees Calculated T [place] : 145 degrees Sinus rhythm Ventricular premature complex Left bundle branch block Abnormal ECG Confirmed by SHERIE OSBORNE M.D. (189) on 05/11/2024 3:03:15 PM NAME : JOSÉ MIGUEL ANTONIO PID : [id number] : 1940 Gender : Male Race : [...] Referred By : , Acquired by : [id number], [facility] HIGH SENSITIVITY TROPONIN To n 05-09-2024 Troponin T.cardiac High sensitivity method [Mass/Vol] 38 ng/L High <12 [facility] Comment on above: Order Comment: Speci men Type: BLOOD SPECIMENOrdering Facility: [facility] Address: [address] [place] [address] Performed By: #### H STNT, 46300-5 ####[facility] LABCLIA [id number] [place] [address] [place] HISTORY PHYSICALon HISTORY PHYSICAL Normal [facility] HbA1c (Bld)on 05-09-2024 Average glucose Estimated from glycated hemoglobin (Bld) [Mass/Vol] 82 mg/dL Normal [facility] Comment on above: Order Comment: Dylan olvera Type: BLOOD SPECIMENOrdering Facility: [facility] Address: [address] [place] [address] Result Comment: eAG: (Estimated average glucose) is a calculated value from HgbA1c and is outside sales account representative of the average blood glucose level in the last 2-3 month period. Performed By: #### 5 5454-3 ####[facility] LABCLIA [id number] [place] [address] [place] HbA1c (Bld) [Mass fraction] 4.5 % Normal 4.3-5.6 [facility] Comment on above: Order Comment: Speci men Type: BLOOD SPECIMENOrdering Facility: [facility] Address: [address] [place] [address] Result Comment: Amer [place] Diabetes Association guidelines indicate that patients with HgbA1c in the range 5.7-6.4% are at increased risk for development of diabetes, and intervention by lifestyle modification may be beneficial. HgbA1c greater or equal to 6.5% is considered diagnostic of diabetes. Performed By: #### 5 5454-3 ####[facility] LABCLIA [id number] [place] [id number] [place] Iron and Iron binding capaci ty panelon 05-09-2024 Iron [Mass/Vol] 66 ug/dL Normal 41-186 [facility] Comment on above: Order Comment: Speci men Type: BLOOD SPECIMENOrdering Facility: [facility] Address: [address] [place] [address] Performed By: #### 2 4323-8, 70443-6, 41345-3, 3016-3 ####[facility] LABIA [id number] [place] [address] [place] Iron binding capacity [Mass/Vol] 250 ug/dL Normal 232-386 [facility] Comment on above: Order Comment: Speci men Type: BLOOD SPECIMENOrdering Facility: [facility] Address: [address] [place] [address] Performed By: #### 2 4323-8, 27500-5, 37505-9, 6-3 ####[facility] LABIA [id number] [place] [id number] [place] Iron/TIBC [Molar ratio] 26.4 % Normal 15.0-57.0 [facility] Comment on above: Order Comment: Speci men Type: BLOOD SPECIMENOrdering Facility: [facility] Address: [address] [place] [address] Performed By: #### 2 4323-8, 11878-8, 55903-7, 3016-3 ####[facility] LABCLIA [id number] [place] [id number] [place] Magnesium [facility] Magnesium [Mass/Vol] 2.6 mg/dL High 1.7-2.3 [facility] Comment on above: Order Comment: Speci men Type: BLOOD SPECIMENOrdering Facility: [facility] Address: [address] [place] [address] Performed By: #### 2 4323-8, 27833-6, 05301-6, 3016-3 ####[facility] LABIA [id number] [place] [address] [place] Magnesium [Mass/Vol] 2.4 mg/dL High 1.7-2.3 [facility] Comment on above: Order Comment: Speci men Type: BLOOD SPECIMEN [facility] Address: [address] [place] [address] Performed By: #### 3 4528-0, PTTAC #### [facility] CLIA [id number] [address] [place] [address] [place] [facility]BNP [facility] Natriuretic peptide.B prohormone N-Terminal [Mass/Vol] 12870 pg/mL High <450 [facility] Comment on above: Order Comment: Speci men Type: BLOOD SPECIMENOrdering Facility: [facility] Address: [address] [place] [address] Performed By: #### H STNT, 58819-6 ####[facility] [id number] [place] [id number] [place] NURSING PROGon 05-09-2024 NURSING PROG Normal [facility] NURSING PROG HNO ID: [id number] Author: BO ZHAO RN Service: Nursing Author Type: Registered Nurse Type: Nursing Progress Note Filed: 05/09/2024 13:26 Note Text: Patient accepted at [facility]: G81, Bed 15 11:00 - Clinical hand off report given to receiving RN, Morena @ . Receiving RN and patient aware that patient will be transported with the Heparin drip. Next lab draw to occur at 12:00, (prior to or after arrival dependent upon timing of transport). 12:30 - Scheduled Heparin draw completed at [facility]. APPTT @ 72.4. Dose changed per Nomogram. Next scheduled lab draw @ 18:00. Receiving RN at [facility] and patient are aware. Patient requesting daily lasix dose be given after arrival to [facility]. Receiving RN aware. Patient is aware of, has actively participated in, and is in agreement with treatment plan of care. 13:25 - Patient transferred to [facility] Via [facility] transport in stable condition BP 100/61 Pulse 77 Temp 36.5 ?C (97.7 ?F) (Oral) Resp 18 Ht 182.9 cm (6') Wt 81.1 kg (178 lb 12.7 oz) SpO2 98% BMI 24.25 kg/m? Normal [facility] PT panel Coag (PPP)on 2023 INR Coag (PPP) [Relative time] 1.3 {INR} Normal 0.9-1.3 [facility] Comment on above: Order Comment: Speci men Type: BLOOD SPECIMENOrdering Facility: [facility] Address: [address] [place] [id number] Result Comment: Loulou min K Antagonist (VKA) Therapeutic Range: INR 2 to 3 (Target INR of 2.5)Note: For patients treated with VKA drugs, such as warfarin, the [place] [employer] 2012 Guideline recommends [...] of 3).Olamide GH, et al. Chest 2012, 141:7S-47SNishedura RA, et al. [facility] 2017, 70: 252-289 Performed By: #### 3 4528-0, PTTAC ####[facility] LABIA [id number] [place] [address] [place] PT Coag (PPP) [Time] 13.3 s High 9.7-13.0 [facility] Comment on above: Order Comment: Speci men Type: BLOOD SPECIMENOrdering Facility: [facility] Address: [address] [place] [address] Performed By: #### 3 4528-0, PTTAC ####[facility] LABIA [id number] [place] [address] [place] PTT, ANTICOAGULANT THERAPYon 05-09-2024 aPTT Coag (PPP) [Time] 31.7 s Normal 23.0-32.4 [facility] Comment on above: Order Comment: Speci men Type: BLOOD SPECIMENOrdering Facility: [facility] Address: [address] [place] [address] Performed By: #### 3 4528-0, PTTAC ####[facility] LABIA [id number] [place] [address] [place] aPTT Coag (PPP) [Time] 72.4 s High 23.0-32.4 [facility] Comment on above: Order Comment: Speci men Type: BLOOD SPECIMEN [facility] Address: [address] [place] [address] Performed By: #### P TTAC #### [facility] CLIA [id number] [address] [place] [address] [place] aPTT Coag (PPP) [Time] 82.1 s High 23.0-32.4 [facility] Comment on above: Order Comment: Speci men Type: BLOOD SPECIMEN [facility] Address: [address] [place] [address] Performed By: #### L [id number] #### [facility] CLIA [id number] [address] [place] [address] [place] TSH SerPl-aCncon 05-09-2024 TSH Qn 0.519 m[IU]/L Normal 0.270-4.200 [facility] Comment on above: Order Comment: Speci men Type: BLOOD SPECIMENOrdering Facility: [facility] Address: [address] [place] [address] Performed By: #### 2 4323-8, 19884-6, 05870-9, 3016-3 ####[facility] LABCLIA [id number] [facility] [id number] [address] [place] XR CHEST 1V FRONTAL PORTon 0 05-09-2024 XR CHEST 1V FRONTAL PORT Normal [facility] Basic metabolic 2000 panelon 05-08-2024 Anion gap [Moles/Vol] 11 mmol/L Normal 8-15 [facility] Comment on above: Order Comment: Speci men Type: BLOOD SPECIMEN [facility] Address: [address] [place] [address] Performed By: #### 3 4528-0, PTTAC #### [facility] [id number] [address] [place] [address] [place] Calcium [Mass/Vol] 8.4 mg/dL Low 8.5-10.2 [facility] Comment on above: Order Comment: Speci men Type: BLOOD SPECIMEN [facility] Address: [address] [place] [address] Performed By: #### 3 4528-0, PTTAC #### [facility] IA [id number] [address] [place] [address] [place] Chloride [Moles/Vol] 105 mmol/L Normal 98-107 [facility] Comment on above: Order Comment: Speci men Type: BLOOD SPECIMEN [facility] Address: [address] [place] [address] Performed By: #### 3 4528-0, PTTAC #### [facility] IA [id number] [address] [place] [address] [place] CO2 [Moles/Vol] 24 mmol/L Normal 22-30 [facility] Comment on above: Order Comment: Speci men Type: BLOOD SPECIMEN [facility] Address: [address] [place] [address] Performed By: #### 3 4528-0, PTTAC #### [facility] CLIA [id number] [address] [place] [address] [place] Creatinine [Mass/Vol] 2.07 mg/dL High 0.73-1.22 [facility] Comment on above: Order Comment: Speci men Type: BLOOD SPECIMEN [facility] Address: [address] [place] [address] Performed By: #### 3 4528-0, PTTAC #### [facility] CLIA [id number] [address] STATES OF [facility] Creatinine and Glomerular filtration rate.predicted panel (S/P/Bld) 31 mL/min/1.73m??? Low >=60 [facility] Comment on above: Order Comment: Speci men Type: BLOOD SPECIMEN [facility] Address: [address] [place] [address] Result Comment: Etta mated Glomerular Filtration Rate [...] Performed By: #### 3 4528-0, PTTAC #### [facility] CLIA [id number] [address] [place] [id number] [place] Glucose [Mass/Vol] 105 mg/dL High 74-99 [facility] Comment on above: Order Comment: Speci men Type: BLOOD SPECIMEN [facility] Address: [address] [place] [address] Result Comment: The [place] Diabetes Association (ADA) provides guidance for cutoff [...] Standards of Medical Care in Diabetes 2016, [place] Diabetes Association. Diabetes Care. 2016.39(Suppl 1). Performed By: #### 3 4528-0, PTTAC #### [facility] CLIA [id number] [address] [place] [address] [place] Potassium [Moles/Vol] 3.4 mmol/L Low 3.7-5.1 [facility] Comment on above: Order Comment: Dylan olvera Type: BLOOD SPECIMEN [facility] Address: [address] [place] [address] Performed By: #### 3 4528-0, PTTAC #### [facility] CLIA [id number] [address] [place] [address] [place] Sodium [Moles/Vol] 140 mmol/L Normal 136-144 [facility] Comment on above: Order Comment: Dylan olvera Type: BLOOD SPECIMEN [facility] Address: [address] [place] [address] Performed By: #### 3 4528-0, PTTAC #### [facility] CLIA [id number] [address] [place] [address] [place] Urea nitrogen [Mass/Vol] 39 mg/dL High 9-24 [facility] Comment on above: Order Comment: yDlan olvera Type: BLOOD SPECIMEN [facility] Address: [address] [place] [address] Performed By: #### 3 4528-0, PTTAC #### [facility] CLIA [id number] [place] CBC panel Auto (Bld)on 05-08 Erythrocyte distribution width (RBC) [Ratio] 22.1 % High 11.5-15.0 [facility] Comment on above: Order Comment: Speci men Type: BLOOD SPECIMEN [facility] Address: [address] [place] [address] Performed By: #### L [id number] #### [facility] CLIA [id number] OF [facility] Hematocrit (Bld) [Volume fraction] 27.9 % Low 39.0-51.0 [facility] Comment on above: Order Comment: Speci men Type: BLOOD SPECIMEN [facility] Address: [address] [place] [address] Performed By: #### L [id number] #### [facility] CLIA [id number] [place] Hemoglobin (Bld) [Mass/Vol] 8.1 g/dL Low 13.0-17.0 [facility] Comment on above: Order Comment: Speci men Type: BLOOD SPECIMEN [facility] Address: [address] [place] [address] Performed By: #### L [id number] #### [facility] CLIA [id number] [place] MCH (RBC) [Entitic mass] 29.9 pg Normal 26.0-34.0 [facility] Comment on above: Order Comment: Speci men Type: BLOOD SPECIMEN [facility] Address: [address] [place] [address] Performed By: #### L [id number] #### [facility] CLIA [id number] [place] MCHC (RBC) [Mass/Vol] 29.0 g/dL Low 30.5-36.0 [facility] Comment on above: Order Comment: Speci men Type: BLOOD SPECIMEN [facility] Address: [address] [place] [address] Performed By: #### L [id number] #### [facility] IA [id number] [address] [place] [address] [place] MCV (RBC) [Entitic vol] 103.0 fL High 80.0-100.0 [facility] Comment on above: Order Comment: Speci men Type: BLOOD SPECIMEN [facility] Address: [address] [place] [address] Performed By: #### L [id number] #### [facility] IA [id number] [address] [place] [address] [place] Nucleated RBC (Bld) [#/Vol] 10*3/uL Normal <0.01 [facility] Comment on above: Order Comment: Speci men Type: BLOOD SPECIMEN [facility] Address: [address] [place] [address] Performed By: #### L [id number] #### [facility] IA [id number] [address] [place] [address] [place] Platelet mean volume (Bld) [Entitic vol] 10.6 fL Normal 9.0-12.7 [facility] Comment on above: Order Comment: Speci men Type: BLOOD SPECIMEN [facility] Address: [address] [place] [address] Performed By: #### L [id number] #### [facility] IA [id number] [address] [place] [address] [place] Platelets (Bld) [#/Vol] 166 10*3/uL Normal 150-400 [facility] Comment on above: Order Comment: Speci men Type: BLOOD SPECIMEN [facility] Address: [address] [place] [address] Performed By: #### L [id number] #### [facility] IA [id number] [address] [place] [address] [place] RBC (Bld) [#/Vol] 2.71 10*6/uL Low 4.20-6.00 [facility] Comment on above: Order Comment: Speci men Type: BLOOD SPECIMEN [facility] Address: [address] [place] [address] Performed By: #### L [id number] #### [facility] CLIA [id number] [address] [facility] [place] [address] [place] WBC (Bld) [#/Vol] 5.29 10*3/uL Normal 3.70-11.00 [facility] Comment on above: Order Comment: Speci men Type: BLOOD SPECIMEN [facility] Address: [address] [place] [address] Performed By: #### L [id number] #### [facility] CLIA [id number] [address] [facility] [place] [address] [facility] [place] CONSULT PROGon 05-08-2024 CONSULT PROG HNO ID: [id number] Author: LORENA GALINDO APRN.CNP Service: Gastroenterology Author Type: Nurse Practitioner Type: Consult Progress Note Filed: 05/08/2024 15:15 Note Text: Brief GI plan of care: Met with patient at bedside. Called 3 daughters via speaker phone whom were reconciliation accountant for entire interview. Patient is still struggling [...] of Epic record/Care Everywhere. Spoke with Alex (extractions technician) whom states no adverse effects of oral contrast to kidney so will proceed with CT A/P oral contrast only at this time. GI team to follow along with results of Ct, final decisions this weekend. Spoke with INOCENTE Dobbins (endo coordinator) whom states is was confirmed per anesthesia yesterday case can be done at [facility] so long as during working hours (not with reconciliation accountant staff/resources). Updated Dr. Heredia, Dr. Bardales. Normal [facility] CONSULT PROG HNO ID: [id number] Author: DEBBI NICOLE APRN.COMPUTER APPLICATIONS INSTRUCTOR Service: Cardiovascular Medicine Author Type: Nurse Practitioner Type: Consult Progress Note Filed: 05/08/2024 10:46 Note Text: [facility] CONSULT PROGRESS NOTE (Template ID [id number]) CONSULTING SERVICE: Cardiology: Consult Team PRIMARY SERVICE: [...] systolic function is moderately decreased. - Percutaneous ifbg-pf-rrzv repair of the mitral valve with 1 [...] male followed by Dr Liang Brady at [facility] , who presented from outpatient Echo lab at [facility] to ER due for generalized weakness and SANTILLAN. On admission he was found to be anemic with drop in his H and H. and stools Guaiac +. Treated with iron. NT Pro BNP 19820. CXR: left pleural effusions. He completed 325 mg ASA and Plavix course for 4 weeks. AC was held while on DAPT and started on Xarelto on 03/29/24 for suspected LV thrombus. Chronic combined systolic and diastolic CHF, h/o severe ICM (LV EF ~15%), s/p DC-ICD (in 2019), (more content not included)... Normal [facility] CT ABD/PEL WO IVCONon 2023 CT ABD/PEL WO IVCON * * *Final Report* * * DATE OF EXAM: May 08 2024 1:40PM [facility] 0531 - CT ABD/PEL WO IVCON [...] small volume of stool in the colon. Vein Pumper: LUZ MARIA Transcribe Date/Time: May 08 2024 3:12P Dictated by : EVANS SENIOR MD This examination was interpreted and the report reviewed and electronically signed by: EVANS SENIOR MD on May 08 2024 3:24PM EST [id number] Normal [facility] Magnesium SerPl-mCncon 05-08 Magnesium [Mass/Vol] 2.3 mg/dL Normal 1.7-2.3 [facility] Comment on above: Order Comment: Dylan olvera Type: BLOOD SPECIMEN [facility] Address: [address] [place] [address] Performed By: #### 3 4528-0, PTTAC #### [facility] CLIA [id number] [address] [place] [address] [place] NURSING PROGon 05-08-2024 NURSING PROG HNO ID: [id number] Author: MANDI PITTS, INOCENTE Service: ? Author Type: Registered Nurse Type: [...] will notify LIP of any changes. Normal [facility] PTT, ANTICOAGULANT THERAPYon 05-08-2024 aPTT Coag (PPP) [Time] 66.1 s High 23.0-32.4 [facility] Comment on above: Order Comment: Dylan olvera Type: BLOOD SPECIMEN [facility] Address: [address] [place] [address] Performed By: #### P TTAC #### [facility] CLIA [id number] [address] [place] [address] [facility] [place] aPTT Coag (PPP) [Time] 48.5 s High 23.0-32.4 [facility] Comment on above: Order Comment: Speci men Type: BLOOD SPECIMEN [facility] Address: [address] [place] [address] Performed By: #### L [id number] #### [facility] CLIA [id number] [address] [place], [place] [address] [place] [address] [place] aPTT Coag (PPP) [Time] 56.6 s High 23.0-32.4 [facility] Comment on above: Order Comment: Speci men Type: BLOOD SPECIMEN [facility] Address: [address] [place] [address] Performed By: #### P TTAC #### [facility] IA [id number] [address] [place] [address] [place] aPTT Coag (PPP) [Time] 80.2 s High 23.0-32.4 [facility] Comment on above: Order Comment: Speci men Type: BLOOD SPECIMEN [facility] Address: [address] [place] [address] Performed By: #### 3 4528-0, PTTAC #### [facility] IA [id number] [address] [place] [address] [place] Basic metabolic 2000 panelon 05-07-2024 Anion gap [Moles/Vol] 11 mmol/L Normal 8-15 [facility] Comment on above: Order Comment: Speci men Type: BLOOD SPECIMEN [facility] Address: [address] [place] [address] Performed By: #### L [id number] #### [facility] IA [id number] [address] [place] [id number] [place] Calcium [Mass/Vol] 8.6 mg/dL Normal 8.5-10.2 [facility] Comment on above: Order Comment: Speci men Type: BLOOD SPECIMEN [facility] Address: [address] [place] [address] Performed By: #### L [id number] #### [facility] CLIA [id number] [address] [place] [address] [place] Chloride [Moles/Vol] 104 mmol/L Normal 98-107 [facility] Comment on above: Order Comment: Speci men Type: BLOOD SPECIMEN [facility] Address: [address] [place] [address] Performed By: #### L [id number] #### [facility] CLIA [id number] [address] [place] [address] [place] CO2 [Moles/Vol] 25 mmol/L Normal 22-30 [facility] Comment on above: Order Comment: Rozi men Type: BLOOD SPECIMEN [facility] Address: [address] [place] [address] Performed By: #### L [id number] #### [facility] CLIA [id number] [address] [place] [address] [place] Creatinine [Mass/Vol] 2.09 mg/dL High 0.73-1.22 [facility] Comment on above: Order Comment: Speci men Type: BLOOD SPECIMEN [facility] Address: [address] [place] [address] Performed By: #### L [id number] #### [facility] CLIA [id number] [place] Creatinine and Glomerular filtration rate.predicted panel (S/P/Bld) 31 mL/min/1.73m??? Low >=60 [facility] Comment on above: Order Comment: Speci men Type: BLOOD SPECIMEN [facility] Address: [address] [place] [address] Result Comment: Etta mated Glomerular Filtration Rate [...] reflect actual GFR. Performed By: #### L [id number] #### [facility] IA [id number] [address] [place] [address] [place] Glucose [Mass/Vol] 93 mg/dL Normal 74-99 [facility] Comment on above: Order Comment: Dylan olvera Type: BLOOD SPECIMEN [facility] Facility: [facility] Address: [address] [place] [address] Result Comment: The [place] [employer] (ADA) provides guidance for cutoff [...] Standards of Medical Care in Diabetes 2016, [place] [employer]. Diabetes Care. 2016.39(Suppl 1). Performed By: #### L [id number] #### [facility] [place] [id number] [address] [place] [address] [place] Potassium [Moles/Vol] 3.6 mmol/L Low 3.7-5.1 [facility] Comment on above: Order Comment: Dylan olvera Type: BLOOD SPECIMEN [facility] Facility: [facility] Address: [address] [place] [address] Performed By: #### L [id number] #### [facility] IA [id number] [address] [place] [address] [place] Sodium [Moles/Vol] 140 mmol/L Normal 136-144 [facility] Comment on above: Order Comment: Dylan olvera Type: BLOOD SPECIMEN [facility] Facility[facility] Address: [address] [place] [address] Performed By: #### L [id number] #### [facility] IA [id number] [address] [place] [address] [place] Urea nitrogen [Mass/Vol] 42 mg/dL High 9-24 [facility] Comment on above: Order Comment: Speci men Type: BLOOD SPECIMEN Ordering Facility: [facility] Address: [address] [place] [address] Performed By: #### L [id number] #### [facility] CLIA [id number] [address] [place] [address] [place] CBC panel Auto (Bld)on 05-07 Erythrocyte distribution width (RBC) [Ratio] 22.4 % High 11.5-15.0 [facility] Comment on above: Order Comment: Speci men Type: BLOOD SPECIMEN Ordering Facility: [facility] Address: [address] [place] [address] Performed By: #### 3 4528-0, PTTAC #### [facility] IA [id number] [address] [place] [address] [place] Hematocrit (Bld) [Volume fraction] 27.2 % Low 39.0-51.0 [facility] Comment on above: Order Comment: Speci men Type: BLOOD SPECIMEN [facility]ing Facility: [facility] Address: [address] [place] [address] Performed By: #### 3 4528-0, PTTAC #### [facility] IA [id number] [address] [place] [address] [place] Hemoglobin (Bld) [Mass/Vol] 8.0 g/dL Low 13.0-17.0 [facility] Comment on above: Order Comment: Speci men Type: BLOOD SPECIMEN [facility]ing Facility: [facility] Address: [address] [place] [address] Performed By: #### 3 4528-0, PTTAC #### [facility] IA [id number] [address] [place] [address] [place] MCH (RBC) [Entitic mass] 30.4 pg Normal 26.0-34.0 [facility] Comment on above: Order Comment: Speci men Type: BLOOD SPECIMEN [facility]ing Facility: [facility] Address: [address] [place] [address] Performed By: #### 3 4528-0, PTTAC #### [facility] CLIA [id number] [address] [place] [address] [place] MCHC (RBC) [Mass/Vol] 29.4 g/dL Low 30.5-36.0 [facility] Comment on above: Order Comment: Speci men Type: BLOOD SPECIMEN [facility]ing Facility: [facility] Address: [facility] [place] [address] Performed By: #### 3 4528-0, PTTAC #### [facility] CLIA [id number] [address] [place] [address] [place] MCV (RBC) [Entitic vol] 103.4 fL High 80.0-100.0 [facility] Comment on above: Order Comment: Speci men Type: BLOOD SPECIMEN [facility]ing Facility: [facility] Address: [address] [place] [address] Performed By: #### 3 4528-0, PTTAC #### [facility] IA [id number] [address] [place] [address] [place] Nucleated RBC (Bld) [#/Vol] 0.02 10*3/uL High <0.01 [facility] Comment on above: Order Comment: Speci men Type: BLOOD SPECIMEN [facility]ing Facility: [facility] Address: [address] [place] [address] Performed By: #### 3 4528-0, PTTAC #### [facility] IA [id number] [address] [place] [address] [place] Platelet mean volume (Bld) [Entitic vol] 10.5 fL Normal 9.0-12.7 [facility] Comment on above: Order Comment: Speci men Type: BLOOD SPECIMEN [facility]ing Facility: [facility] Address: [address] [place] [address] Performed By: #### 3 4528-0, PTTAC #### [facility] CLIA [id number] [address] [place] [id number] [place] Platelets (Bld) [#/Vol] 158 10*3/uL Normal 150-400 [facility] Comment on above: Order Comment: Speci men Type: BLOOD SPECIMEN [facility]ing Facility: [facility] Address: [address] [place] [address] Performed By: #### 3 4528-0, PTTAC #### [facility] CLIA [id number] [address] [place] [address] [place] RBC (Bld) [#/Vol] 2.63 10*6/uL Low 4.20-6.00 [facility] Comment on above: Order Comment: Speci men Type: BLOOD SPECIMEN [facility]ing Facility: [facility] Address: [address] [place] [address] Performed By: #### 3 4528-0, PTTAC #### [facility] IA [id number] [address] [place] [address] [place] WBC (Bld) [#/Vol] 5.25 10*3/uL Normal 3.70-11.00 [facility] Comment on above: Order Comment: Speci men Type: BLOOD SPECIMEN [facility]ing Facility: [facility] Address: [address] [place] [address] Performed By: #### 3 4528-0, PTTAC #### [facility] IA [id number] [address] [place] [address] [place] Erythrocyte distribution width (RBC) [Ratio] 22.5 % High 11.5-15.0 [facility] Comment on above: Order Comment: Speci men Type: BLOOD SPECIMEN [facility]ing Facility: [facility] Address: [address] [place] [address] Performed By: #### P TTAC #### [facility] IA [id number] [address] [place] [address] [place] Hematocrit (Bld) [Volume fraction] 28.8 % Low 39.0-51.0 [facility] Comment on above: Order Comment: Speci men Type: BLOOD SPECIMEN [facility] Facility: [facility] Address: [address] [place] [address] Performed By: #### P TTAC #### [facility] [id number] [address] [place] [address] [place] [facility] Hemoglobin (Bld) [Mass/Vol] 8.4 g/dL Low 13.0-17.0 [facility] Comment on above: Order Comment: Speci men Type: BLOOD SPECIMEN [facility]ing Facility: [facility] Address: [address] [place] [address] Performed By: #### P TTAC #### [facility] [id number] [address] [place] [address] [place] MCH (RBC) [Entitic mass] 30.2 pg Normal 26.0-34.0 [facility] Comment on above: Order Comment: Speci men Type: BLOOD SPECIMEN [facility] Facility: [facility] Address: [address] [place] [address] Performed By: #### P TTAC #### [facility] [id number] [address] [place] [address] [place] MCHC (RBC) [Mass/Vol] 29.2 g/dL Low 30.5-36.0 [facility] Comment on above: Order Comment: Speci men Type: BLOOD SPECIMEN [facility] Facility: [facility] Address: [address] [place] [address] Performed By: #### P TTAC #### [facility] [id number] [address] [place] [address] [place] MCV (RBC) [Entitic vol] 103.6 fL High 80.0-100.0 [facility] Comment on above: Order Comment: Speci men Type: BLOOD SPECIMEN [facility]ing Facility: [facility] Address: [address] [place] [address] Performed By: #### P TTAC #### [facility] [id number] [address] [place] [address] [place] Nucleated RBC (Bld) [#/Vol] 0.03 10*3/uL High <0.01 [facility] Comment on above: Order Comment: Speci men Type: BLOOD SPECIMEN Ordering Facility: [facility] Address: [address] [place] [address] Performed By: #### P TTAC #### [facility] IA [id number] [address] [place] [address] [place] Platelet mean volume (Bld) [Entitic vol] 10.6 fL Normal 9.0-12.7 [facility] Comment on above: Order Comment: Speci men Type: BLOOD SPECIMEN Ordering Facility: [facility] Address: [address] [place] [address] Performed By: #### P TTAC #### [facility] CLIA [id number] [address] [place] [address] [place] Platelets (Bld) [#/Vol] 160 10*3/uL Normal 150-400 [facility] Comment on above: Order Comment: Speci men Type: BLOOD SPECIMEN Ordering Facility: [facility] Address: [address] [place] [address] Performed By: #### P TTAC #### [facility] IA [id number] [address] [place] [address] [place] RBC (Bld) [#/Vol] 2.78 10*6/uL Low 4.20-6.00 [facility] Comment on above: Order Comment: Speci men Type: BLOOD SPECIMEN [facility]ing Facility: [facility] Address: [address] [place] [address] Performed By: #### P TTAC #### [facility] IA [id number] [address] [place] [address] [place] WBC (Bld) [#/Vol] 6.32 10*3/uL Normal 3.70-11.00 [facility] Comment on above: Order Comment: Speci men Type: BLOOD SPECIMEN [facility] Facility: [facility] Address: [address] [place] [address] Performed By: #### P TTAC #### [facility] IA [id number] [address] [place] [address] [place] CONSULTon 05-07-2024 CONSULT HNO ID: [id number] Author: SWATHI DE LOS SANTOS MD Service: [...] male followed by Dr Liang Brady at [facility] with h/o severe ICM (LV EF [...] presented yesterday from outpatient echo lab at [facility] to ER due for generalized weakness and [...] iron. Denies melena. His NT Pro BNP 62537. CXR: left pleural effusions. He was tested +Guaiac on admission PAST MEDICAL HISTORY 09/03/2022: Carotid stenosis, asymptomatic, bilateral No date: Chronic back pain Comment: stenosis of the back 09/03/2022: Chronic combined systolic and diastolic congestive heart failure ([facility]) No date: Dyslipidemia No date: GERD (gastroesophageal reflux disease) No date: Heart failure, acute systolic ([facility]) No date: Hypertension No date: Hypothyroid No date: Myocardial infarct, old No date: Occlusion and stenosis of carotid artery without mention of cerebral infarction 2020: Prostate cancer ([facility]) 11/17/2012: PVD (peripheral vascular disease) ([facility]) 09/03/2022: Stroke (cerebrum) ([facility]) No date: Systolic heart failure ([facility]) No date: Thyroid disorder 04/26/2023: Type 2 diabetes mellitus with diabetic chronic kidney disease, unspecified CKD stage, unspecified whether intermediate insulin use ([facility]) 04/28/2012: Ventricular tachycardia ([facility]) PAST SURGICAL HISTORY 2012: ANGIOGRAPHY, [...] Artery Disease Father Heart Attack Father fatal ID at age 77 Ischemic Heart Disease Brother CABGx6 first at age 72 No Known Problems Maternal Grandmother No Known Problems Maternal Grandfather No Known Problems Paternal Grandmother No Known Problems Paternal Grandfather No Known Problems Daughter No Known Problems Daughter No Known Problems Daughter other (Other) Other paternal cousin at age 50 of ID Social History Tobacco Use Smoking status: Former [...] Take 1,000 Units by mouth as needed. 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 Normal [facility] CONSULT HNO ID: [id number] Author: CARLOS HOUSER APRN.COMPUTER APPLICATIONS INSTRUCTOR Service: Gastroenterology Author Type: Nurse Practitioner Type: [...] Patient reports having OP ECHO done at [facility] yesterday, noted to be more weak, family [...] artery disease involving coronary bypass graft of [place] heart without angina pectoris (POA: Yes) #Systolic heart failure (HCC) (POA: Yes) #S/P CABG (coronary artery bypass graft) (POA: Yes) #Type 2 diabetes mellitus with diabetic chronic kidney disease, unspecified CKD stage, unspecified whether rn long term care insulin use (HCC) (POA: Yes) #Stage 3b [...] acute systolic (more content not included)... Normal [facility] Ferritin SerPl-mCncon 2023 Ferritin [Mass/Vol] 804.6 ng/mL High 30.3-565.7 [facility] Comment on above: Order Comment: Speci men Type: BLOOD SPECIMEN [facility] Facility[facility] Address: [address] [place] [address] Performed By: #### L [id number] #### [facility] CLIA [id number] [address] [place] [address] [place] Iron and Iron binding capaci panelon 05-07-2024 Iron [Mass/Vol] 56 ug/dL Normal 41-186 [facility] Comment on above: Order Comment: Speci men Type: BLOOD SPECIMEN [facility] Facility[facility] Address: [address] [place] [address] Performed By: #### L [id number] #### [facility] CLIA [id number] [address] [place] [address] [place] Iron binding capacity [Mass/Vol] 239 ug/dL Normal 232-386 [facility] l Comment on above: Order Comment: Speci men Type: BLOOD SPECIMEN [facility] Facility[facility] Address: [address] [place] [address] Performed By: #### L [id number] #### [facility] CLIA [id number] [address] [place] [address] [place] Iron/TIBC [Molar ratio] 23.4 % Normal 15.0-57.0 [facility] Comment on above: Order Comment: Speci men Type: BLOOD SPECIMEN [facility] Facility[facility] Address: [address] [place] [address] Performed By: #### L [id number] #### [facility] CLIA [id number] [address] [place] [address] [place] [facility] Magnesium [Mass/Vol] 2.4 mg/dL High 1.7-2.3 [facility] Comment on above: Order Comment: Speci men Type: BLOOD SPECIMEN [facility] Facility[facility] Address: [address] [place] [address] Performed By: #### L [id number] #### [facility] CLIA [id number] [address] [place] [address] [place] PT panel Coag (PPP)on 2023 INR Coag (PPP) [Relative time] 1.4 {INR} High 0.9-1.3 [facility] Comment on above: Order Comment: Specgregory olvera Type: BLOOD SPECIMEN [facility] Facility: [facility] Address: [address] [place] [address] Result Comment: Loulou min K Antagonist (VKA) Therapeutic Range: INR 2 to 3 (Target INR of 2.5) Note: For patients treated with VKA drugs, such as warfarin, the [place] [employer] 2012 Guideline recommends [...] Chest 2012, 141:7S-47S Javier RA, et al. [facility] 2017, 70: 252-289 Performed By: #### 3 4528-0, PTTAC #### [facility] CLIA [id number] [address] [place] [address] [place] PT Coag (PPP) [Time] 14.9 s High 9.7-13.0 [facility] Comment on above: Order Comment: Dylan olvera Type: BLOOD SPECIMEN [facility] Facility: [facility] Address: [address] [place] [id number] Performed By: #### 3 4528-0, PTTAC #### [facility] CLIA [id number] [address] [place] [address] [place] PTT, ANTICOAGULANT THERAPYon 05-07-2024 aPTT Coag (PPP) [Time] 76.0 s High 23.0-32.4 [facility] Comment on above: Order Comment: Speci men Type: BLOOD SPECIMEN [facility] Facility[facility] Address: [address] [place] [address] Performed By: #### 3 4528-0, PTTAC #### [facility] CLIA [id number] [address] [place] [id number] [facility] aPTT Coag (PPP) [Time] 30.8 s Normal 23.0-32.4 [facility] Comment on above: Order Comment: Speci men Type: BLOOD SPECIMEN [facility] Facility[facility] Address: [address] [place] [address] Performed By: #### 3 4528-0, PTTAC #### [facility] CLIA [id number] [address] [place] [id number] [facility] THERAPY NTon 05-07-2024 THERAPY NT HNO ID: [id number] Author: JENNY JULIEN, OTR/L Service: Occupational Therapy Author Type: Occupational Therapist Type: Therapy (PT/OT/Speech/Resp) Filed: 05/07/2024 15:43 Note Text: Occupational Therapy consult received. Chart reviewed and spoke with TIMA Walker who reports no acute care OT needs are identified at this time. Current nursing and PT 6 clicks score is 24. Plan to d/c OT consult. Normal [facility] THERAPY NT HNO ID: [id number] Author: ADRIANA BLACKMAN, PT, DPT Service: Physical Therapy Author Type: Physical Therapist Type: Therapy (PT/OT/Speech/Resp) Filed: 05/07/2024 14:14 Note Text: Physical Therapy Evaluation Summary SERVICE DATE: 05/07/2024 SERVICE TIME: 1111 to 1204 ROOM: [place] [address] PT 6 Clicks Score: 24 DISCHARGE RECOMMENDATIONS [...] steps, reports going to OP cardiac rehab RN PERINATAL. Reports distance pt able to ambulate has [...] Reduced mobility-other TREATMENT INTERVENTIONS Evaluation, Gait Training (25034), Therapeutic Activity (47974) Timed Code Treatment (minutes): 38 Skilled Treatment [...] therefore, use of WW is recommended at PR. Gait Device: Wheeled Walker General Deviations/Observations: Dolores [...] Strengthening, Functi (more content not included)... Normal [facility] CBC W Auto Differential pane l (Bld)on 05-06-2024 Basophils (Bld) [#/Vol] 0.04 10*3/uL Normal <0.11 [facility] Comment on above: Order Comment: Speci men Type: BLOOD SPECIMEN [facility] Facility[facility] Address: [address] [place] [address] Performed By: #### P [facility] #### [facility] CLIA [id number] [address] [place], [place] [address] [place] [address] [place] Basophils/100 WBC (Bld) 0.6 % Normal [facility] Comment on above: Order Comment: Speci men Type: BLOOD SPECIMEN [facility] Facility: [facility] Address: [address] [place] [address] Performed By: #### P TTAC #### [facility] IA [id number] [address] [place] [address] [place] Differential cell count method Nom (Bld) Auto Normal [facility] Comment on above: Order Comment: Speci men Type: BLOOD SPECIMEN [facility] Facility[facility] Address: [address] [place] [address] Performed By: #### P TTAC #### [facility] IA [id number] [address] [place] [address] [place] Eosinophils (Bld) [#/Vol] 0.07 10*3/uL Normal <0.46 [facility] Comment on above: Order Comment: Speci men Type: BLOOD SPECIMEN [facility] Facility[facility] Address: [address] [place] [address] Performed By: #### P TTAC #### [facility] IA [id number] [address] [place] [address] [place] Eosinophils/100 WBC (Bld) 1.1 % Normal [facility] Comment on above: Order Comment: Speci men Type: BLOOD SPECIMEN [facility] Facility[facility] Address: [address] [place] [address] Performed By: #### P TTAC #### [facility] IA [id number] [address] [place] [address] [place] Erythrocyte distribution width (RBC) [Ratio] 22.2 % High 11.5-15.0 [facility] Comment on above: Order Comment: Speci men Type: BLOOD SPECIMEN [facility] Facility[facility] Address: [address] [place] [address] Performed By: #### P TTAC #### [facility] IA [id number] [address] [place] [address] [place] Hematocrit (Bld) [Volume fraction] 29.6 % Low 39.0-51.0 [facility] Comment on above: Order Comment: Speci men Type: BLOOD SPECIMEN [facility] Facility: [facility] Address: [address] [place] [address] Performed By: #### P TTAC #### [facility] IA [id number] [address] [place] [address] [place] Hemoglobin (Bld) [Mass/Vol] 8.8 g/dL Low 13.0-17.0 [facility] Comment on above: Order Comment: Speci men Type: BLOOD SPECIMEN [facility] Facility: [facility] Address: [address] [place] [address] Performed By: #### P TTAC #### [facility] IA [id number] [address] [place] [address] [place] Immature granulocytes (Bld) [#/Vol] 0.03 10*3/uL Normal <0.10 [facility] Comment on above: Order Comment: Speci men Type: BLOOD SPECIMEN [facility] Facility: [facility] Address: [address] [place] [address] Performed By: #### P TTAC #### [facility] IA [id number] [address] [place] [address] [place] Immature granulocytes/100 WBC (Bld) 0.5 % Normal [facility] Comment on above: Order Comment: Speci men Type: BLOOD SPECIMEN [facility] Facility: [facility] Address: [address] [place] [address] Performed By: #### P TTAC #### [facility] IA [id number] [address] [place] [address] [place] Lymphocytes (Bld) [#/Vol] 1.05 10*3/uL Normal 1.00-4.00 [facility] Comment on above: Order Comment: Speci men Type: BLOOD SPECIMEN [facility] Facility: [facility] Address: [address] [place] [address] Performed By: #### P TTAC #### [facility] IA [id number] [address] [place] [address] [place] Lymphocytes/100 WBC (Bld) 16.1 % Normal [facility] Comment on above: Order Comment: Speci men Type: BLOOD SPECIMEN [facility] Facility: [facility] Address: [address] [place] [address] Performed By: #### P TTAC #### [facility] IA [id number] [place] [address] [place] MCH (RBC) [Entitic mass] 30.0 pg Normal 26.0-34.0 [facility] Comment on above: Order Comment: Speci men Type: BLOOD SPECIMEN [facility] Facility: [facility] Address: [address] [place] [address] Performed By: #### P TTAC #### [facility] [id number] [address] [place] [address] [place] MCHC (RBC) [Mass/Vol] 29.7 g/dL Low 30.5-36.0 [facility] Comment on above: Order Comment: Speci men Type: BLOOD SPECIMEN [facility] Facility: [facility] Address: [address] [place] [address] Performed By: #### P TTAC #### [facility] [id number] [address] [place] [address] [place] MCV (RBC) [Entitic vol] 101.0 fL High 80.0-100.0 [facility] Comment on above: Order Comment: Speci men Type: BLOOD SPECIMEN [facility] Facility: [facility] Address: [address] [place] [address] Performed By: #### P TTAC #### [facility] [id number] [address] [place] [address] [place] Monocytes (Bld) [#/Vol] 0.56 10*3/uL Normal <0.87 [facility] Comment on above: Order Comment: Speci men Type: BLOOD SPECIMEN Ordering Facility: [facility] Address: [address] [place] [address] Performed By: #### P TTAC #### [facility] IA [id number] [address] [place] [address] [place] Monocytes/100 WBC (Bld) 8.6 % Normal [facility] Comment on above: Order Comment: Speci men Type: BLOOD SPECIMEN Ordering Facility: [facility] Address: [address] [place] [address] Performed By: #### P TTAC #### [facility] IA [id number] [address] [place] [address] [place] Neutrophils (Bld) [#/Vol] 4.77 10*3/uL Normal 1.45-7.50 [facility] Comment on above: Order Comment: Speci men Type: BLOOD SPECIMEN Ordering Facility: [facility] Address: [address] [place] [address] Performed By: #### P TTAC #### [facility] IA [id number] [address] [place] [address] [place] Neutrophils/100 WBC (Bld) 73.1 % Normal [facility] Comment on above: Order Comment: Speci men Type: BLOOD SPECIMEN Ordering Facility: [facility] Address: [address] [place] [address] Performed By: #### P TTAC #### [facility] IA [id number] [address] [place] [address] [place] Nucleated RBC (Bld) [#/Vol] 0.02 10*3/uL High <0.01 [facility] Comment on above: Order Comment: Speci men Type: BLOOD SPECIMEN Ordering Facility: [facility] Address: [address] [place] [address] Performed By: #### P TTAC #### [facility] IA [id number] [address] [place] [address] [place] Nucleated RBC/100 WBC (Bld) [Ratio] 0.3 /100 WBC Normal [facility] Comment on above: Order Comment: Speci men Type: BLOOD SPECIMEN Ordering Facility: [facility] Address: [address] [place] [address] Performed By: #### P TTAC #### [facility] IA [id number] [address] [place] [address] [place] Platelet mean volume (Bld) [Entitic vol] 10.8 fL Normal 9.0-12.7 [facility] Comment on above: Order Comment: Speci men Type: BLOOD SPECIMEN Ordering Facility: [facility] Address: [address] [place] [address] Performed By: #### P TTAC #### [facility] IA [id number] [address] [place] [address] [place] Platelets (Bld) [#/Vol] 194 10*3/uL Normal 150-400 [facility] Comment on above: Order Comment: Speci men Type: BLOOD SPECIMEN Ordering Facility: [facility] Address: [address] [place] [address] Performed By: #### P TTAC #### [facility] IA [id number] [address] [place] [address] [place] RBC (Bld) [#/Vol] 2.93 10*6/uL Low 4.20-6.00 [facility] Comment on above: Order Comment: Speci men Type: BLOOD SPECIMEN Ordering Facility: [facility] Address: [address] [place] [address] Performed By: #### P TTAC #### [facility] IA [id number] [address] [place] [address] [place] WBC (Bld) [#/Vol] 6.52 10*3/uL Normal 3.70-11.00 [facility] Comment on above: Order Comment: Speci men Type: BLOOD SPECIMEN [facility]ing Facility: [facility] Address: [address] [place] [address] Performed By: #### P TTAC #### [facility] IA [id number] [address] [place] [address] [place] CNPNon 05-06-2024 CNPN Normal [facility] metabolic 2000 panelon 05-06-2024 Albumin [Mass/Vol] 3.6 g/dL Low 3.9-4.9 [facility] Comment on above: Order Comment: Speci men Type: BLOOD SPECIMEN Ordering Facility: [facility] Address: [address] [place] [address] Performed By: #### 2 4323-8, 34680-9, 59586-2 #### [facility] CLIA [id number] [address] [place] [address] [place] ALP [Catalytic activity/Vol] 92 U/L Normal 38-113 [facility] Comment on above: Order Comment: Speci men Type: BLOOD SPECIMEN Ordering Facility: [facility] Address: [address] [place] [address] Performed By: #### 2 4323-8, 56387-2, 13154-4 #### [facility] CLIA [id number] [address] [place] [address] [place] ALT [Catalytic activity/Vol] 12 U/L Normal 10-54 [facility] Comment on above: Order Comment: Speci men Type: BLOOD SPECIMEN Ordering Facility: [facility] Address: [address] [place] [address] Performed By: #### 2 4323-8, 28531-1, 37269-3 #### [facility] CLIA [id number] [address] [place] [address] [place] Anion gap [Moles/Vol] 13 mmol/L Normal 8-15 [facility] Comment on above: Order Comment: Speci men Type: BLOOD SPECIMEN Ordering Facility: [facility] Address: [address] [place] [address] Performed By: #### 2 4323-8, 91585-3, 40341-4 #### [facility] CLIA [id number] [address] [place] [address] [place] AST [Catalytic activity/Vol] 24 U/L Normal 14-40 [facility] Comment on above: Order Comment: Speci men Type: BLOOD SPECIMEN [facility]ing Facility: [facility] Address: [address] [place] [address] Performed By: #### 2 4323-8, 89575-4, 01385-9 #### [facility] CLIA [id number] [address] [place] [address] [place] Bilirubin [Mass/Vol] 0.8 mg/dL Normal 0.2-1.3 [facility] Comment on above: Order Comment: Speci men Type: BLOOD SPECIMEN Ordering Facility: [facility] Address: [address] [place] [address] Performed By: #### 2 4323-8, 97005-6, 78803-7 #### [facility] CLIA [id number] [address] [place] [address] [place] Calcium [Mass/Vol] 9.1 mg/dL Normal 8.5-10.2 [facility] Comment on above: Order Comment: Speci men Type: BLOOD SPECIMEN Ordering Facility: [facility] Address: [address] [place] [address] Performed By: #### 2 4323-8, , 80366-4 #### [facility] CLIA [id number] [address] [place] [address] [place] Chloride [Moles/Vol] 103 mmol/L Normal 98-107 [facility] Comment on above: Order Comment: Speci men Type: BLOOD SPECIMEN [facility]ing Facility: [facility] Address: [address] [place] [address] Performed By: #### 2 4323-8, , 09893-3 #### [facility] CLIA [id number] [address] [place] [address] [place] CO2 [Moles/Vol] 24 mmol/L Normal 22-30 [facility] Comment on above: Order Comment: Speci men Type: BLOOD SPECIMEN [facility]ing Facility: [facility] Address: [address] [place] [address] Performed By: #### 2 4323-8, 41737-9, 33115-9 #### [facility] CLIA [id number] [address] [facility] [place] [address] [place] Creatinine [Mass/Vol] 2.07 mg/dL High 0.73-1.22 [facility] Comment on above: Order Comment: Dylan olvera Type: BLOOD SPECIMEN Ordering Facility: [facility] Address: [address] [place] [address] Performed By: #### 2 4323-8, 00274-2, 90432-3 #### [facility] CLIA [id number] [address] [facility] [place] [address] [place] Creatinine and Glomerular filtration rate.predicted panel (S/P/Bld) 31 mL/min/1.73m??? Low >=60 [facility] Comment on above: Order Comment: [facility] Type: BLOOD SPECIMEN [facility]ing Facility: [facility] Address: [address] [place] [address] Result Comment: Etta mated Glomerular Filtration Rate [...] actual GFR. Performed By: #### 2 4323-8, 75274-5, 78779-1 #### [facility] CLIA [id number] [address] [facility] [place] [address] [place] Glucose [Mass/Vol] 105 mg/dL High 74-99 [facility] Comment on above: Order Comment: Dylan [facility] Type: BLOOD SPECIMEN Ordering Facility[facility] Address: [address] [place] [address] Result Comment: The [place] Diabetes Association (ADA) provides guidance for cutoff [...] Standards of Medical Care in Diabetes 2016, [place] [employer]. Diabetes Care. 2016.39(Suppl 1). Performed By: #### 2 4323-8, 36779-5, 06213-5 #### [facility] CLIA [id number] [address] [place] [address] [place] Potassium [Moles/Vol] 4.1 mmol/L Normal 3.7-5.1 [facility] Comment on above: Order Comment: Speci men Type: BLOOD SPECIMEN Ordering Facility: [facility] Address: [address] [place] [address] Performed By: #### 2 4323-8, , 81236-4 #### [facility] CLIA [id number] [place] [address] [place] Protein [Mass/Vol] 6.2 g/dL Low 6.3-8.0 [facility] Comment on above: Order Comment: Speci men Type: BLOOD SPECIMEN [facility]ing Facility: [facility] Address: [address] [place], [place] [address] Performed By: #### 2 4323-8, , 00006-7 #### [facility] CLIA [id number] [address] [place] [address] [place] Sodium [Moles/Vol] 140 mmol/L Normal 136-144 [facility] Comment on above: Order Comment: Speci men Type: BLOOD SPECIMEN Ordering Facility: [facility] Address: [address] [place] [address] Performed By: #### 2 4323-8, , 63073-7 #### [facility] CLIA [id number] [address] [place] [address] [place] Urea nitrogen [Mass/Vol] 40 mg/dL High 9-24 [facility] Comment on above: Order Comment: Speci men Type: BLOOD SPECIMEN Ordering Facility: [facility] Address: [address] [place] [address] Performed By: #### 2 4323-8, 98531-9, 43461-0 #### [facility] CLIA [id number] [address] [place] [address] [place] ECG COMPLETEon 05-06-2024 ECG COMPLETE Ventricular Rate : 6 9 BPM Atrial Rate : 0 BPM QRS Duration : 126 ms Q-T Interval : 429 ms QTC Calculation(Bazett) : 460 ms Calculated R [place] : -14 degrees Calculated T [place] : 158 degrees Atrial fibrillation Paired ventricular premature complexes Nonspecific intraventricular conduction delay Repol abnrm suggests ischemia, lateral leads Abnormal ECG 1829 NO STEMI Confirmed by DO OSWALD JOSEPH ([id number]), graphic editor MULU GARDUNO ([id number]) on 05/07/2024 8:20:07 AM NAME : JOSÉ MIGUEL ANTONIO PID : [id number] : 1940 Gender : Male Race : ORD : [id number] Procedure Date : May 06 2024 18:28:15 Edit Date : May 07 2024 08:20:08 Diagnosis: Atrial fibrillation Paired ventricular premature complexes Nonspecific intraventricular conduction delay Repol abnrm suggests ischemia, lateral leads Abnormal ECG 1829 NO STEMI Confirmed by DO OSWALD JOSEPH ([id number]), graphic editor MULU GARDUNO ([id number]) on 05/07/2024 8:20:07 AM Test Reason : Chest Pain Location : 302 : ED ED-3 Overread By : DO OSWALD JOSEPH Edited By : MULU GARDUNO Referred By : , Acquired by : [id number], [facility] ED NOTEon 05-06-2024 ED NOTE HNO ID: [id number] Author: ENRRIQUE PARSONS RN Service: eHospital Author Type: Registered Nurse Type: ED Notes Filed: 05/06/2024 19:13 Note Text: Report given to INOCENTE Andrade. [facility] ED NOTE HNO ID: [id number] Author: RAYMOND PALMA RN Service: Emergency Medicine Author Type: Registered Nurse Type: ED Notes Filed: 05/06/2024 19:10 Note Text: Report taken from Enrrique Castellano RN [facility] ED NOTE HNO ID: [id number] Author: DEVIKA WILEY, RN Service: ? Author Type: Registered Nurse Type: ED Notes Filed: 05/06/2024 16:42 Note Text: Patient presents with c/o SANTILLAN increasing x several weeks. He had outpatient echo done RN PERINATAL, but his daughter wanted him evaluated further. Patient very pale in triage, takes plavix, ASA, and xarelto. Denies CP, denies SOB at rest. VSS in triage, AANDOx4. Normal [facility] ED PROV NOTEon 05-06-2024 ED PROV NOTE HNO ID: [id number] Author: JANET OSWALD DO Service: Emergency Medicine [...] combined systolic and diastolic congestive heart failure ([facility]) No date: Dyslipidemia No date: GERD (gastroesophageal reflux disease) No date: Heart failure, acute systolic ([facility]) No date: Hypertension No date: Hypothyroid No date: Myocardial infarct, old No date: Occlusion and stenosis of carotid artery without mention of cerebral infarction 2020: Prostate cancer ([facility]) 11/17/2012: PVD (peripheral vascular disease) ([facility]) 09/03/2022: Stroke (cerebrum) ([facility]) No date: Systolic heart failure ([facility]) No date: Thyroid disorder 04/26/2023: Type 2 diabetes mellitus with diabetic chronic kidney disease, unspecified CKD stage, unspecified whether intermediate insulin use ([facility]) 04/28/2012: Ventricular tachycardia ([facility]) PAST SURGICAL HISTORY 2012: ANGIOGRAPHY, [...] Disease Father - Heart Attack Father fatal ID at age 77 - Ischemic Heart Disease Brother CABGx6 first at age 72 - No Known Problems Maternal Grandmother - No Known Problems Maternal Grandfather - No Known Problems Paternal Grandmother - No Known Problems Paternal Grandfather - No Known Problems Daughter - No Known Problems Daughter - No Known Problems Daughter - other (Other) Other paternal cousin at age 50 of ID Social History Tobacco Use - Smoking status: [...] 40 (*) (more content not included)... Normal [facility] ED Triage Noteon 05-06-2024 ED Triage Note HNO ID: [id number] Author: JENNY ALARCON MD Service: Emergency Medicine [...] bedside clinician. SIGNATURE: Jenny Alarcon MD Normal [facility] HIGH SENSITIVITY TROPONIN T (INITIAL)on 05-06-2024 Troponin T.cardiac High sensitivity method [Mass/Vol] 45 ng/L High <12 [facility] Comment on above: Order Comment: Speci men Type: BLOOD SPECIMEN [facility] Facility[facility] Address: [address] [place] [address] [place] [address] Performed By: #### L [id number] #### [facility] CLIA [id number] [address] [place] [address] [facility] [place] HIGH SENSITIVITY TROPONIN T (SECOND)on 05-06-2024 Troponin T.cardiac High sensitivity method [Mass/Vol] 43 ng/L High <12 [facility] Comment on above: Order Comment: Speci men Type: BLOOD SPECIMEN [facility] Facility: [facility] Address: [address] [place] [address] Performed By: #### 3 4528-0, PTTAC #### [facility] CLIA [id number] [address] [place] [address] [facility] HIGH SENSITIVITY TROPONIN T (THIRD) 3 HRS AFTER INITIALon 05-06-2024 Troponin T.cardiac High sensitivity method [Mass/Vol] 45 ng/L High <[address] [place] [address] Comment on above: Order Comment: Speci men Type: BLOOD SPECIMEN [facility] Facility: [facility] Address: [address] [place] [address] Performed By: #### L [id number] #### [facility] CLIA [id number] [address] [place] [address] [place] HISTORY PHYSICALon HISTORY PHYSICAL HNO ID: [id number] Author: CHERYL LEES MD Service: Hospital Medicine Author Type: Physician Type: H&P Filed: 05/06/2024 23:41 Note Text: DEPARTMENT OF HOSPITAL MEDICINE HISTORY AND PHYSICAL EXAM SERVICE DATE: 05/06/2024 SERVICE TIME: 6:57 PM Primary Care Physician: Samm Thompson MD NIGHT AND WEEKEND COVERAGE: Days: [phone], please contact via [employer] Secure Message Nights: [phone] 3rd floor: please page [facility]ist night cover #[phone] 4W: please page [facility] night cover #[phone] 5th floor: please page [facility] night cover #[phone] SDU (18:00 - 19:00): Please page #[phone] SDU (19:00 - 07:00): Please call E-Hospitalist at [phone] Subjective CHIEF COMPLAINT: generalized weakness and SANTILLAN HPI: This is a 84 year old male with hx of ICM s/p ICD 2019, CHFrEF (EF 17%), severe MR s/p MV clip 02/18/2024, s/p left carotid stenting 03/09/24, 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 Pt had repeat ECHO RN PERINATAL and brought to ER due to ongoing [...] 40/2.07, around baseline HST 45> 43 ProBNP 18235 CXR: left pleural effusions (new compares to [...] mention of cerebral infarction 2020: Prostate cancer ([facility]) 11/17/2012: PVD (peripheral vascular disease) ([facility]) 09/03/2022: Stroke (cerebrum) ([facility]) No date: Systolic heart failure ([facility]) No date: Thyroid disorder 04/26/2023: Type 2 diabetes mellitus with diabetic chronic kidney disease, unspecified CKD stage, unspecified whether intermediate insulin use ([facility]) 04/28/2012: Ventricular tachycardia ([facility]) PAST SURGICAL HISTORY 2012: ANGIOGRAPHY, [...] Artery Disease Father Heart Attack Father fatal ID at age 77 Ischemic Heart Disease Brother CABGx6 first at age 72 No Known Problems Maternal Grandmother No Known Problems Maternal Grandfather No Known Problems Paternal Grandmother No Known Problems Paternal Grandfather No Known Problems Daughter No Known Problems Daughter No Known Problems Daughter other (Other) Other paternal cousin at age 50 of ID Social History Tobacco Use Smoking status: Former [...] metoprolol succinate ER (more content not included)... [facility] 05-06 Magnesium [Mass/Vol] 2.5 mg/dL High 1.7-2.3 [facility] Comment on above: Order Comment: Dylan olvera Type: BLOOD SPECIMEN [facility] Facility[facility] Address: [address] [place] [address] Performed By: #### 2 4323-8, 20718-0, 24450-0 #### [facility] CLIA [id number] [address] [facility] [place] [id number] [facility] NT-proBNP [facility] 05-06 Natriuretic peptide.B prohormone N-Terminal [Mass/Vol] 56251 pg/mL High <450 [facility] Comment on above: Order Comment: Dylan olvera Type: BLOOD SPECIMEN [facility] Facility[facility] Address: [address] [place] [address] Performed By: #### 2 4323-8, 73301-7, 49933-1 #### [facility] CLIA [id number] [address] [place] XR CHEST 2V FRONTAL/LATon XR [...] New left pleural effusion with adjacent atelectasis Vein Pumper: LUZ MARIA Transcribe Date/Time: May 06 2024 5:37P Dictated by : ROSS FULTON DO This examination was interpreted and the report reviewed and electronically signed by: ROSS FULTON DO on May 06 2024 5:38PM EST [id number] Normal [facility] CNPTOUTREACHon 04-30-2024 CNPTOUTREACH Normal [facility] CNPTOUTREACHon 04-29-2024 CNPTOUTREACH Normal [facility] CNCOon 04-14-2024 CNCO Letter Text Normal [facility] VISUAL FIELD 24-2 OU (BOTH E YES)on 03-02-2024 [facility] Radiology Study observation (narrative) [facility] Basic metabolic 2000 panelon 02-05-2024 Anion gap [Moles/Vol] 16 mmol/L 9 - 18 mmol/L [facility] Calcium [Mass/Vol] 9.6 mg/dL 8.5 - 10. 2 mg/dL [facility] Chloride [Moles/Vol] 95 mmol/L Low 97 - 105 mmol/L [facility] CO2 [Moles/Vol] 24 mmol/L 22 - 30 mmol/L [facility] Creatinine [Mass/Vol] 2.50 mg/dL High 0.73 - 1.22 mg/dL [facility] GFR/1.73 sq M.predicted among non-blacks MDRD (S/P/Bld) [Vol rate/Area] 25 mL/min/{1.73_m2} Low - PINF [facility] Comment on above: Estimated Glomerular Filtration Rate [...] 103 mg/dL High 74 - 99 mg/dL [facility] Comment on above: The [place] Diab[employer] Association (ADA) provides guidance for [...] Standards of Medical Care in Diabetes 2016, [place] [employer]. Diabetes Care. 2016.39(Suppl 1). Potassium [Moles/Vol] 3.5 mmol/L Low 3.7 - 5.1 mmol/L [facility] Sodium [Moles/Vol] 135 mmol/L Low 136 - 144 mmol/L [facility] Urea nitrogen [Mass/Vol] 43 mg/dL High 9 - 24 mg/dL [facility] CBC W Auto Differential pane l (Bld)on 02-05-2024 Basophils (Bld) [#/Vol] 0.04 10*3/uL [facility] Basophils/100 WBC (Bld) 0.5 % [facility] Differential cell count method Nom (Bld) Auto [facility] Eosinophils (Bld) [#/Vol] 0.41 10*3/uL [facility] Eosinophils/100 WBC (Bld) 5.5 % [facility] Erythrocyte distribution width (RBC) [Ratio] 16.2 % High 11.5 - 15.0 % [facility] Hematocrit (Bld) [Volume fraction] 40.2 % 39.0 - 51.0 % [facility] Hemoglobin (Bld) [Mass/Vol] 12.4 g/dL Low 13.0 - 17.0 g/dL [facility] Immature granulocytes (Bld) [#/Vol] 0.04 10*3/uL [facility] Immature granulocytes/100 WBC (Bld) 0.5 % [facility] Interpretation and review of laboratory results Abnormal [facility] Lymphocytes (Bld) [#/Vol] 1.20 10*3/uL [facility] Lymphocytes/100 WBC (Bld) 16.0 % [facility] MCH (RBC) [Entitic mass] 27.0 pg 26.0 - 34.0 pg [facility] MCHC (RBC) [Mass/Vol] 30.8 g/dL 30.5 - 36.0 g/dL [facility] MCV (RBC) [Entitic vol] 87.6 fL 80.0 - 100.0 fL [facility] Monocytes (Bld) [#/Vol] 0.82 10*3/uL [facility] Monocytes/100 WBC (Bld) 10.9 % [facility] Neutrophils (Bld) [#/Vol] 5.00 10*3/uL [facility] Neutrophils/100 WBC (Bld) 66.6 % [facility] Nucleated RBC (Bld) [#/Vol] NINF [facility] Nucleated RBC/100 WBC (Bld) [Ratio] 0.0 % /100 WBC [facility] Platelet mean volume (Bld) [Entitic vol] 10.4 fL 9.0 - 12.7 fL [facility] Platelets (Bld) [#/Vol] 224 10*3/uL [facility] RBC (Bld) [#/Vol] 4.59 10*6/uL 4.20 - 6.0 0 m/uL [facility] WBC (Bld) [#/Vol] 7.51 10*3/uL [facility] NT PRO BNPon 02-05-2024 Natriuretic peptide.B prohormone N-Terminal [Mass/Vol] 26010 pg/mL High NINF - 450 pg/mL [facility] No Panel Informationon 02-04 Interpretation and review of laboratory results Abnormal [facility] Comprehensive metabolic 2000 panelon 01-10-2024 Albumin [Mass/Vol] 3.7 g/dL Low 3.9 - 4.9 g/dL [facility] ALP [Catalytic activity/Vol] 109 U/L 38 - 113 U/L [facility] ALT [Catalytic activity/Vol] 10 U/L 10 - 54 U/L [facility] Anion gap [Moles/Vol] 14 mmol/L 9 - 18 mmol/L [facility] AST [Catalytic activity/Vol] 20 U/L 14 - 40 U/L [facility] Bilirubin [Mass/Vol] 1.1 mg/dL 0.2 - 1.3 mg/dL [facility] Calcium [Mass/Vol] 9.8 mg/dL 8.5 - 10. 2 mg/dL [facility] Chloride [Moles/Vol] 95 mmol/L Low 97 - 105 mmol/L [facility] CO2 [Moles/Vol] 25 mmol/L 22 - 30 mmol/L [facility] Creatinine [Mass/Vol] 2.50 mg/dL High 0.73 - 1.22 mg/dL [facility] GFR/1.73 sq M.predicted among non-blacks MDRD (S/P/Bld) [Vol rate/Area] 25 mL/min/{1.73_m2} Low - PINF [facility] Comment on above: Estimated Glomerular Filtration Rate [...] 105 mg/dL High 74 - 99 mg/dL [facility] Comment on above: The [place] [employer] (ADA) provides guidance for [...] Standards of Medical Care in Diabetes 2016, [place] [employer]. Diabetes Care. 2016.39(Suppl 1). Potassium [Moles/Vol] 3.9 mmol/L 3.7 - 5.1 mmol/L [facility] Protein [Mass/Vol] 7.2 g/dL 6.3 - 8.0 g/dL [facility] Sodium [Moles/Vol] 134 mmol/L Low 136 - 144 mmol/L [facility] Urea nitrogen [Mass/Vol] 44 mg/dL High 9 - 24 mg/dL [facility] NT PRO BNPon 01-10-2024 Natriuretic peptide.B prohormone N-Terminal [Mass/Vol] 34068 pg/mL High NINF - 450 pg/mL [facility] No Panel Informationon 01-09 Interpretation and review of laboratory results Abnormal [facility] ICD REMOTE CHECKon 4 AV Delay Adaptive Paced Minimum (ms) 200 ms [facility] AV Delay Adaptive Sensed Minimum (ms) 170 ms [facility] Bj RA Pacing Amplitude (volts) 2.0 V [facility] Bj RA Pacing Polarity BI [facility] Bj RA Pacing Pulse Width (ms) 0.5 ms [facility] Bj RA Sensing Amplitude (mvolts) 0.25 mV [facility] Bj RA Sensing Polarity BI [facility] Bj RV Pacing Amplitude (volts) 2.0 V [facility] Bj RV Pacing Polarity BI [facility] Bj RV Pacing Pulse Width (ms) 0.5 ms [facility] Bj RV Sensing Amplitude (mvolts) 0.3 mV [facility] Bj RV Sensing Polarity BI [facility] Detection Configuration (Vent) 2 - Zone [facility] FastVT_Detection Interval 250 ms [facility] FastVT_Therapy Configuration 1 ATP(s) + 8 Shock(s) [facility] ICD FastVT DetectionStatus ENABLED [facility] ICD-AMS EPISODES 170 {beats}/min [facility] ICD-ATP Episodes (Vent) 1 [facility] ICD-ATRIALFIBRILLAT ION 9 [facility] ICD-ATRIALTACHYCARD IA 9 [facility] ICD-ATRIALTACHYCARD IA 2 [facility] ICD-ATRIALTACHYCARD IA 1 [facility] ICD-Device Mfg BSX [facility] ICD-Fast Ventricular Tachycardia 2 [facility] ICD-Fast Ventricular Tachycardia 1 [facility] ICD-Fast Ventricular Tachycardia 0 [facility] ICD-LEADIMPEDANCEAT RIAL 767 ohm [facility] ICD-Percent Pacing (Atrial) 0 % [facility] ICD-Percent Pacing (Vent) 0 % [facility] ICD-Shocks Aborted (Vent) 0 [facility] [id number] D 0 [facility] ICD-SHOCKSABORTED 0 [facility] ICD-SHOCKSDELIVERED VENTRICULAR 0 [facility] ICD-Ventricular Fibrillation 0 [facility] Lead Impedance (RV) 437 ohm [facility] Lead Impedance High Voltage 51 ohm [facility] Lead1 Mfg BSX [facility] Lead2 Mfg BSX [facility] Location RV [facility] Location RA [facility] Lower Rate (bpm) 50 {beats}/min [facility] Max Sensor Rate (bpm) 130 {beats}/min [facility] MDT_PROG_TACHY_ZONE _DETECTIONS_STATUS ENABLED [facility] Model D142 INOGEN [facility] Model [address] [place] 4-Front [facility] Model 7741 Ingevity MRI [facility] Pacing Mode DDDR [facility] Serial Number [id number] [facility] Serial Number [id number] [facility] Serial Number [id number] [facility] Test Charge Energy 23 J [facility] Test Charge Time 10.3 s [facility] Therapy Status (Vent) Enabled [facility] Thresh RA Capture Amplitude (volts) 0.9 V [facility] Thresh RA Capture Duration (ms) 0.5 ms [facility] Thresh RV Capture Amplitude (VOLTS) 0.4 V [facility] Thresh RV Capture Duration (MS) 0.5 ms [facility] Tracking Rate (bpm) 130 {beats}/min [facility] VF Zone Detection Interval 250 ms [facility] VF Zone Therapy Configuration 1 ATP(s) + 8 Shock(s) [facility] No Panel Informationon 12-22 BLANK _ [facility] ICD-ATRIALTACHYCARD IA 0 [facility] Implant Date 03/24/2019 [facility] NT PRO BNPon 12-13-2023 Natriuretic peptide.B prohormone N-Terminal [Mass/Vol] 80036 pg/mL High <450 pg/mL [facility] ICD REMOTE CHECKon AV Delay Adaptive Paced Minimum (ms) 200 ms [facility] AV Delay Adaptive Sensed Minimum (ms) 170 ms [facility] Bj RA Pacing Amplitude (volts) 2.0 V [facility] Bj RA Pacing Polarity BI [facility] Bj RA Pacing Pulse Width (ms) 0.5 ms [facility] Bj RA Sensing Amplitude (mvolts) 0.25 mV [facility] Bj RA Sensing Polarity BI [facility] Bj RV Pacing Amplitude (volts) 2.0 V [facility] Bj RV Pacing Polarity BI [facility] Bj RV Pacing Pulse Width (ms) 0.5 ms [facility] Bj RV Sensing Amplitude (mvolts) 0.3 mV [facility] Bj RV Sensing Polarity BI [facility] Detection Configuration (Vent) 2 - Zone [facility] FastVT_Detection Interval 250 ms [facility] FastVT_Therapy Configuration 1 ATP(s) + 8 Shock(s) [facility] ICD FastVT DetectionStatus ENABLED [facility] ICD-AMS EPISODES 170 {beats}/min [facility] ICD-ATP Episodes (Vent) 0 [facility] ICD-ATRIALFIBRILLAT ION 7 [facility] ICD-ATRIALTACHYCARD IA 7 [facility] ICD-ATRIALTACHYCARD IA 2 [facility] ICD-Device Mfg BSX [facility] ICD-Fast Ventricular Tachycardia 2 [facility] ICD-LEADIMPEDANCEAT RIAL 827 ohm [facility] ICD-Percent Pacing (Atrial) 0 % [facility] ICD-Percent Pacing (Vent) 0 % [facility] ICD-Shocks Aborted (Vent) 0 [facility] [id number] D 0 [facility] ICD-SHOCKSABORTED 0 [facility] ICD-SHOCKSDELIVERED VENTRICULAR 0 [facility] ICD-Ventricular Fibrillation 0 [facility] Lead Impedance (RV) 468 ohm [facility] Lead Impedance High Voltage 60 ohm [facility] Lead1 Mfg BSX [facility] Lead2 Mfg BSX [facility] Location RV [facility] Location RA [facility] Lower Rate (bpm) 50 {beats}/min [facility] Max Sensor Rate (bpm) 130 {beats}/min [facility] MDT_PROG_TACHY_ZONE _DETECTIONS_STATUS ENABLED [facility] Model D142 INOGEN [facility] Model [address] [place] 4-Front [facility] Model 7741 Ingevity MRI [facility] Pacing Mode DDDR [facility] Serial Number [id number] [facility] Serial Number [id number] [facility] Serial Number [id number] [facility] Test Charge Energy 23 J [facility] Test Charge Time 10.3 s [facility] Therapy Status (Vent) Enabled [facility] Thresh RA Capture Amplitude (volts) 0.9 V [facility] Thresh RA Capture Duration (ms) 0.5 ms [facility] Thresh RV Capture Amplitude (VOLTS) 0.4 V [facility] Thresh RV Capture Duration (MS) 0.5 ms [facility] Tracking Rate (bpm) 130 {beats}/min [facility] VF Zone Detection Interval 250 ms [facility] VF Zone Therapy Configuration 1 ATP(s) + 8 Shock(s) [facility] No Panel Informationon 12-03 BLANK _ [facility] ICD-ATRIALTACHYCARD IA 0 [facility] ICD-Fast Ventricular Tachycardia 0 [facility] Implant Date 03/24/2019 [facility] ICD REMOTE CHECKon 3 AV Delay Adaptive Paced Minimum (ms) 200 ms [facility] AV Delay Adaptive Sensed Minimum (ms) 170 ms [facility] Bj RA Pacing Amplitude (volts) 2.0 V [facility] Bj RA Pacing Polarity BI [facility] Bj RA Pacing Pulse Width (ms) 0.5 ms [facility] Bj RA Sensing Amplitude (mvolts) 0.25 mV [facility] Bj RA Sensing Polarity BI [facility] Bj RV Pacing Amplitude (volts) 2.0 V [facility] Bj RV Pacing Polarity BI [facility] Bj RV Pacing Pulse Width (ms) 0.5 ms [facility] Bj RV Sensing Amplitude (mvolts) 0.3 mV [facility] Bj RV Sensing Polarity BI [facility] Detection Configuration (Vent) 2 - Zone [facility] FastVT_Detection Interval 250 ms [facility] FastVT_Therapy Configuration 1 ATP(s) + 8 Shock(s) [facility] ICD FastVT DetectionStatus ENABLED [facility] ICD-AMS EPISODES 170 {beats}/min [facility] ICD-ATP Episodes (Vent) 0 [facility] ICD-ATRIALFIBRILLAT ION 2 [facility] ICD-ATRIALTACHYCARD IA 2 [facility] ICD-ATRIALTACHYCARD IA 5 [facility] ICD-Device Mfg BSX [facility] ICD-Fast Ventricular Tachycardia 5 [facility] ICD-LEADIMPEDANCEAT RIAL 746 ohm [facility] ICD-Percent Pacing (Atrial) 1 % [facility] ICD-Percent Pacing (Vent) 0 % [facility] ICD-Shocks Aborted (Vent) 0 [facility] [id number] D 0 [facility] ICD-SHOCKSABORTED 0 [facility] ICD-SHOCKSDELIVERED VENTRICULAR 0 [facility] ICD-Ventricular Fibrillation 0 [facility] Lead Impedance (RV) 426 ohm [facility] Lead Impedance High Voltage 49 ohm [facility] Lead1 Mfg BSX [facility] Lead2 Mfg BSX [facility] Location RV [facility] Location RA [facility] Lower Rate (bpm) 50 {beats}/min [facility] Max Sensor Rate (bpm) 130 {beats}/min [facility] MDT_PROG_TACHY_ZONE _DETECTIONS_STATUS ENABLED [facility] Model D142 INOGEN [facility] Model [address] [place] 4-Front [facility] Model 7741 Ingevity MRI [facility] Pacing Mode DDDR [facility] Serial Number [id number] [facility] Serial Number [id number] [facility] Serial Number [id number] [facility] Test Charge Energy 23 J [facility] Test Charge Time 10.2 s [facility] Therapy Status (Vent) Enabled [facility] Thresh RA Capture Amplitude (volts) 0.6 V [facility] Thresh RA Capture Duration (ms) 0.5 ms [facility] Thresh RV Capture Amplitude (VOLTS) 0.5 V [facility] Thresh RV Capture Duration (MS) 0.5 ms [facility] Tracking Rate (bpm) 130 {beats}/min [facility] VF Zone Detection Interval 250 ms [facility] VF Zone Therapy Configuration 1 ATP(s) + 8 Shock(s) [facility] No Panel Informationon 02-21 BLANK _ [facility] ICD-ATRIALTACHYCARD IA 0 [facility] ICD-Fast Ventricular Tachycardia 0 [facility] Implant Date 03/24/2019 [facility] FREE T3on 02-08-2023 FREE T3 3.21 pg/mlL Normal 2.18-3.98 [facility] Comment on above: Performed By: #### V ITAD #### [facility] [address] [address] [address] Silva Burnett FREE T4on 02-08-2023 Free T4 [Mass/Vol] 0.74 ng/dL Critically low 0.76-1.46 Th e [facility] Comment on above: Performed By: #### B MP, BNP #### [facility] [address] [address] [address] Silva Burnett TSHon 02-08-2023 TSH 0.168 uIU/mL Critically low 0.358-3.740 [facility] Comment on above: Performed By: #### V ITAD #### [facility] [address] [place] [address] Dr. Silva Burnett ICD REMOTE CHECKon 3 AV Delay Adaptive Paced Minimum (ms) 200 ms [facility] AV Delay Adaptive Sensed Minimum (ms) 170 ms [facility] Bj RA Pacing Amplitude (volts) 2 V [facility] Bj RA Pacing Polarity BI [facility] Bj RA Pacing Pulse Width (ms) 0.5 ms [facility] Bj RA Sensing Amplitude (mvolts) 0.25 mV [facility] Bj RA Sensing Polarity BI [facility] Bj RV Pacing Amplitude (volts) 2 V [facility] Bj RV Pacing Polarity BI [facility] Bj RV Pacing Pulse Width (ms) 0.5 ms [facility] Bj RV Sensing Amplitude (mvolts) 0.3 mV [facility] Bj RV Sensing Polarity BI [facility] Detection Configuration (Vent) 2 - Zone [facility] FastVT_Detection Interval 250 ms [facility] FastVT_Therapy Configuration 1 ATP(s) + 8 Shock(s) [facility] ICD FastVT DetectionStatus ENABLED [facility] ICD-AMS EPISODES 170 {beats}/min [facility] ICD-ATP Episodes (Vent) 0 [facility] ICD-ATRIALFIBRILLAT ION 1 [facility] ICD-ATRIALTACHYCARD IA 1 [facility] ICD-ATRIALTACHYCARD IA 3 [facility] ICD-Device Mfg BSX [facility] ICD-Fast Ventricular Tachycardia 3 [facility] ICD-LEADIMPEDANCEAT RIAL 786 ohm [facility] ICD-Percent Pacing (Atrial) 1 % [facility] ICD-Percent Pacing (Vent) 0 % [facility] ICD-Shocks Aborted (Vent) 0 [facility] [id number] D 0 [facility] ICD-SHOCKSABORTED 0 [facility] ICD-SHOCKSDELIVERED VENTRICULAR 0 [facility] ICD-Ventricular Fibrillation 0 [facility] Lead Impedance (RV) 458 ohm [facility] Lead Impedance High Voltage 53 ohm [facility] Lead1 Mfg X [facility] Lead2 Mfg X [facility] Location RV [facility] Location RA [facility] Lower Rate (bpm) 50 {beats}/min [facility] Max Sensor Rate (bpm) 130 {beats}/min [facility] MDT_PROG_TACHY_ZONE _DETECTIONS_STATUS ENABLED [facility] Model D142 INOGEN [facility] Model [address] [place] 4-Front [facility] Model 7741 Ingevity MRI [facility] Pacing Mode DDDR [facility] Serial Number [id number] [facility] Serial Number [id number] [facility] Serial Number [id number] [facility] Test Charge Energy 23 J [facility] Test Charge Time 10.2 s [facility] Therapy Status (Vent) Enabled [facility] Thresh RA Capture Amplitude (volts) 0.6 V [facility] Thresh RA Capture Duration (ms) 0.5 ms [facility] Thresh RV Capture Amplitude (VOLTS) 0.5 V [facility] Thresh RV Capture Duration (MS) 0.5 ms [facility] Tracking Rate (bpm) 130 {beats}/min [facility] VF Zone Detection Interval 250 ms [facility] VF Zone Therapy Configuration 1 ATP(s) + 8 Shock(s) [facility] No Panel Informationon 11-07 BLANK _ [facility] ICD-ATRIALTACHYCARD IA 0 [facility] ICD-Fast Ventricular Tachycardia 0 [facility] Implant Date 03/24/2019 [facility] Comprehensive metabolic 2000 panelon 10-26-2022 Albumin [Mass/Vol] 4.0 g/dL 3.9 - 4.9 g/dL [facility] ALP [Catalytic activity/Vol] 103 U/L 38 - 113 U/L [facility] ALT [Catalytic activity/Vol] 15 U/L 10 - 54 U/L [facility] Anion gap [Moles/Vol] 17 mmol/L 9 - 18 mmol/L [facility] AST [Catalytic activity/Vol] 26 U/L 14 - 40 U/L [facility] Bilirubin [Mass/Vol] 0.6 mg/dL 0.2 - 1.3 mg/dL [facility] Calcium [Mass/Vol] 10.2 mg/dL 8.5 - 10. 2 mg/dL [facility] Chloride [Moles/Vol] 103 mmol/L 97 - 105 mmol/L [facility] CO2 [Moles/Vol] 20 mmol/L Low 22 - 30 mmol/L [facility] Creatinine [Mass/Vol] 1.89 mg/dL High 0.73 - 1.22 mg/dL [facility] Estimated Glomerular Filtration Rate 35 mL/min/1.73m Low >=60 mL/min/1.73m [facility] Glucose [Mass/Vol] 103 mg/dL High 74 - 99 mg/dL [facility] Potassium [Moles/Vol] 5.5 mmol/L High 3.7 - 5.1 mmol/L [facility] Protein [Mass/Vol] 7.7 g/dL 6.3 - 8.0 g/dL [facility] Sodium [Moles/Vol] 140 mmol/L 136 - 144 mmol/L [facility] Urea nitrogen [Mass/Vol] 40 mg/dL High 9 - 24 mg/dL [facility] NT PRO BNPon 10-26-2022 Natriuretic peptide.B prohormone N-Terminal [Mass/Vol] 5553 pg/mL High <450 pg/mL [facility] CBC W Auto Differential pane l (Bld)on 10-25-2022 Basophils (Bld) [#/Vol] <0.11 k/uL [facility] Basophils/100 WBC (Bld) 0.3 % [facility] Differential cell count method Nom (Bld) Auto [facility] Eosinophils (Bld) [#/Vol] 0.20 10*3/uL <0.46 k/uL [facility] Eosinophils/100 WBC (Bld) 2.7 % [facility] Erythrocyte distribution width (RBC) [Ratio] 13.6 % 11.5 - 15.0 % [facility] Hematocrit (Bld) [Volume fraction] 47.3 % 39.0 - 51.0 % [facility] Hemoglobin (Bld) [Mass/Vol] 14.6 g/dL 13.0 - 17.0 g/dL [facility] Immature granulocytes (Bld) [#/Vol] <0.10 k/uL [facility] Immature granulocytes/100 WBC (Bld) 0.3 % [facility] Lymphocytes (Bld) [#/Vol] 1.40 10*3/uL 1.00 - 4.00 k/uL [facility] Lymphocytes/100 WBC (Bld) 19.0 % [facility] MCH (RBC) [Entitic mass] 29.1 pg 26.0 - 34.0 pg [facility] MCHC (RBC) [Mass/Vol] 30.9 g/dL 30.5 - 36.0 g/dL [facility] MCV (RBC) [Entitic vol] 94.2 fL 80.0 - 100.0 fL [facility] Monocytes (Bld) [#/Vol] 0.65 10*3/uL <0.87 k/uL [facility] Monocytes/100 WBC (Bld) 8.8 % [facility] Neutrophils (Bld) [#/Vol] 5.06 10*3/uL 1.45 - 7.50 k/uL [facility] Neutrophils/100 WBC (Bld) 68.9 % [facility] Nucleated RBC (Bld) [#/Vol] <0.01 k/uL [facility] Nucleated RBC/100 WBC (Bld) [Ratio] 0.0 /100 WBC [facility] Platelet mean volume (Bld) [Entitic vol] 10.7 fL 9.0 - 12.7 fL [facility] Platelets (Bld) [#/Vol] 159 10*3/uL 150 - 400 k/uL [facility] RBC (Bld) [#/Vol] 5.02 10*6/uL 4.20 - 6.0 0 m/uL [facility] WBC (Bld) [#/Vol] 7.35 10*3/uL 3.70 - 11. 00 k/uL [facility] GLUCOSE, BLOOD (POC)on 10-25 Glucose [Mass/Vol] 94 mg/dL 74 - 99 mg/dL [facility] Glucose [Mass/Vol] 101 mg/dL Abnormal 74 - 99 mg/dL [facility] No Panel Informationon 10-25 [facility] BNPon 08-30-2022 Natriuretic peptide B (Bld) [Mass/Vol] 5149.0 pg/mL Critically high <=1,800.0 [facility] Comment on above: Performed By: #### B MP, BNP #### [facility] [address] [place] [address] Dr. Silva Burnett PROF CHEM 8 (BAS METB)on Anion gap [Moles/Vol] 9.3 mmol/L Normal [facility] Comment on above: Performed By: #### B MP, BNP #### [facility] [address] [place] [address] Dr. Silva Burnett Calcium [Mass/Vol] 9.5 mg/dL Normal 8.5-10.1 [facility] Comment on above: Performed By: #### B MP, BNP #### [facility] [address] [address] [address] Silva Burnett Chloride [Moles/Vol] 103 mmol/L Normal 98-107 [facility] Comment on above: Performed By: #### B MP, BNP #### [facility] [address] [place] [address] Dr. Silva Burnett CO2 [Moles/Vol] 30.2 mmol/L Normal 21.0-32.0 [facility] Comment on above: Performed By: #### B MP, BNP #### [facility] [address] [address] [address] Silva Burnett Creatinine [Mass/Vol] 1.86 mg/dL Critically high 0.70-1.30 [facility] Comment on above: Performed By: #### B MP, BNP #### [facility] [address] [address] [address] Silva Burnett EGFR-AF CENTRAL AFRICAN 43 mL/min/1.73m2 Critically low >=60 [facility] Comment on above: Performed By: #### B MP, BNP #### [facility] [address] [address] [address] Silva Burnett EGFR-NON AF [place]EN[place]AL AFR[place] 35 mL/min/1.73m2 Critically low >=60 [facility] Comment on above: Performed By: #### B MP, BNP #### [facility] [address] [address] [address] Silva Burnett Glucose [Mass/Vol] 108 mg/dL Critically high 74-106 [facility] Comment on above: Performed By: #### B MP, BNP #### [facility] [address] [address] [address] Silva Burnett Potassium [Moles/Vol] 4.5 mmol/L Normal 3.5-5.1 [facility] Comment on above: Performed By: #### B MP, BNP #### [facility] [address] [address] [address] Silva Burnett Sodium [Moles/Vol] 138 mmol/L Normal 136-145 [facility] Comment on above: Performed By: #### B MP, BNP #### [facility] [address] [address] [address] Silva Burnett Urea nitrogen [Mass/Vol] 27.0 mg/dL Critically high 7.0-18.0 [facility] Comment on above: Performed By: #### B MP, BNP #### [facility] [address] [address] [address] Silva Burnett Urea nitrogen/Creatinine [Mass ratio] 14.5 mg/mg Normal [facility] Comment on above: Performed By: #### B MP, BNP #### [facility] [address] [place] [address] Dr. Silva Burnett ICD REMOTE CHECKon 2 AV Delay Adaptive Paced Minimum (ms) 200 ms [facility] AV Delay Adaptive Sensed Minimum (ms) 170 ms [facility] Bj RA Pacing Amplitude (volts) 2 V [facility] Bj RA Pacing Polarity BI [facility] Bj RA Pacing Pulse Width (ms) 0.5 ms [facility] Bj RA Sensing Amplitude (mvolts) 0.25 mV [facility] Bj RA Sensing Polarity BI [facility] Bj RV Pacing Amplitude (volts) 2 V [facility] Bj RV Pacing Polarity BI [facility] Bj RV Pacing Pulse Width (ms) 0.5 ms [facility] Bj RV Sensing Amplitude (mvolts) 0.3 mV [facility] Bj RV Sensing Polarity BI [facility] Detection Configuration (Vent) 2 - Zone [facility] FastVT_Detection Interval 250 ms [facility] FastVT_Therapy Configuration 1 ATP(s) + 8 Shock(s) [facility] ICD FastVT DetectionStatus ENABLED [facility] ICD-AMS EPISODES 170 {beats}/min [facility] ICD-ATP Episodes (Vent) 0 [facility] ICD-ATRIALFIBRILLAT ION 0 [facility] ICD-ATRIALTACHYCARD IA 1 [facility] ICD-Device Mfg BSX [facility] ICD-Fast Ventricular Tachycardia 1 [facility] ICD-LEADIMPEDANCEAT RIAL 743 ohm [facility] ICD-Percent Pacing (Atrial) 0 % [facility] ICD-Percent Pacing (Vent) 0 % [facility] ICD-Shocks Aborted (Vent) 0 [facility] [id number] D 0 [facility] ICD-SHOCKSABORTED 0 [facility] ICD-SHOCKSDELIVERED VENTRICULAR 0 [facility] ICD-Ventricular Fibrillation 0 [facility] Lead Impedance (RV) 431 ohm [facility] Lead Impedance High Voltage 48 ohm [facility] Lead1 Mfg BSX [facility] Lead2 Mfg BSX [facility] Location RV [facility] Location RA [facility] Lower Rate (bpm) 50 {beats}/min [facility] Max Sensor Rate (bpm) 130 {beats}/min [facility] MDT_PROG_TACHY_ZONE _DETECTIONS_STATUS ENABLED [facility] Model D142 INOGEN [facility] Model 0675 [place] 4-Front [facility] Model 7741 Ingevity MRI [facility] Pacing Mode DDDR [facility] Serial Number [id number] [facility] Serial Number [id number] [facility] Serial Number [id number] [facility] Test Charge Energy 23 J [facility] Test Charge Time 10.1 s [facility] Therapy Status (Vent) Enabled [facility] Thresh RA Capture Amplitude (volts) 0.6 V [facility] Thresh RA Capture Duration (ms) 0.5 ms [facility] Thresh RV Capture Amplitude (VOLTS) 0.5 V [facility] Thresh RV Capture Duration (MS) 0.5 ms [facility] Tracking Rate (bpm) 130 {beats}/min [facility] VF Zone Detection Interval 250 ms [facility] VF Zone Therapy Configuration 1 ATP(s) + 8 Shock(s) [facility] No Panel Informationon 08-07 BLANK _ [facility] ICD-ATRIALTACHYCARD IA 0 [facility] ICD-Fast Ventricular Tachycardia 0 [facility] Implant Date 03/24/2019 [facility] BNPon 07-23-2022 Natriuretic peptide B (Bld) [Mass/Vol] 5638.0 pg/mL Critically high <=1,800.0 [facility] Comment on above: Performed By: #### B MP, BNP, LIPID #### [facility] [address] [place] [address] Dr. Silva Burnett LIPID PROFILEon 07-23-2022 CHOL-HDL RATIO NORM SEE BELOW Normal [facility] Comment on above: Result Comment: 3.3 - 4.4 LOW RISK 4.4 - 7.1 AVERAGE RISK 7.1 - 11.0 MODERATE RISK >11.0 HIGH RISK Performed By: #### B MP, BNP, LIPID #### [facility] [address] [address] [address] Silva Burnett Cholesterol [Mass/Vol] 126 mg/dL Normal <=200 [facility] Comment on above: Performed By: #### B MP, BNP, LIPID #### [facility] [address] [address] [address] Silva Burnett Cholesterol in HDL [Mass/Vol] 51 mg/dL Normal 40-60 [facility] Comment on above: Performed By: #### B MP, BNP, LIPID #### [facility] [address] [address] [address] Silva Burnett Cholesterol in LDL [Mass/Vol] 61.4 mg/dL Normal [facility] Comment on above: Performed By: #### B MP, BNP, LIPID #### [facility] [address] [address] [address] Silva Burnett Cholesterol.total/C holesterol in HDL [Mass ratio] 2.5 {ratio} Normal [facility] Comment on above: Performed By: #### B MP, BNP, LIPID #### [facility] [address] [address] [address] Silva Burnett HDL NORMAL > or = 60 mg/dl - LO W CARDIOVASCULAR RISK <40 mg/dl - HIGH CARDIOVASCULAR RISK Normal [facility] Comment on above: Performed By: #### B MP, BNP, LIPID #### [facility] [address] [place] [address] Dr. Silva Burnett LDL CALC NORMAL SEE BELOW Normal [facility] Comment on above: Result Comment: <100 mg/dl OPTIMAL 100 - 129 mg/dl NEAR OR ABOVE OPTIMAL 130 - 159 mg/dl BORDERLINE HIGH 160 - 189 mg/dl HIGH >190 mg/dl VERY HIGH Performed By: #### B MP, BNP, LIPID #### [facility] [address] [address] [address] Silva Burnett Triglyceride [Mass/Vol] 68 mg/dL Normal <=150 [facility] Comment on above: Performed By: #### B MP, BNP, LIPID #### [facility] [address] [address] [address] Silva Burnett VLDL CALC 13.6 mg/dL Normal [facility] Comment on above: Performed By: #### B MP, BNP, LIPID #### [facility] [address] [address] [address] Silva Burnett PROF CHEM 8 (BAS METB)on Anion gap [Moles/Vol] 10.2 mmol/L Normal [facility] Comment on above: Performed By: #### B MP, BNP, LIPID #### [facility] [address] [place] [address] Dr. Silva Burnett Calcium [Mass/Vol] 9.3 mg/dL Normal 8.5-10.1 [facility] Comment on above: Performed By: #### B MP, BNP, LIPID #### [facility] [address] [place] [address] Dr. Silva Burnett Chloride [Moles/Vol] 102 mmol/L Normal 98-107 [facility] Comment on above: Performed By: #### B MP, BNP, LIPID #### [facility] [address] [place] [address] Dr. Silva Burnett CO2 [Moles/Vol] 29.7 mmol/L Normal 21.0-32.0 [facility] Comment on above: Performed By: #### B MP, BNP, LIPID #### [facility] [address] [place] [address] Dr. Silva Burnett Creatinine [Mass/Vol] 1.68 mg/dL Critically high 0.70-1.30 [facility] Comment on above: Performed By: #### B MP, BNP, LIPID #### [facility] [address] [place] [address] Dr. Silva Burnett EGFR-AF CENTRAL AFRICAN 48 mL/min/1.73m2 Critically low >=60 [facility] Comment on above: Performed By: #### B MP, BNP, LIPID #### [facility] [address] [place] [address] Dr. Silva Burnett EGFR-NON AF CENTRAL AFRICAN 40 mL/min/1.73m2 Critically low >=60 [facility] Comment on above: Performed By: #### B MP, BNP, LIPID #### [facility] [address] [place] [address] Dr. Silva Burnett Glucose [Mass/Vol] 97 mg/dL Normal 74-106 [facility] Comment on above: Performed By: #### B MP, BNP, LIPID #### [facility] [address] [place] [address] Dr. Silva Burnett Potassium [Moles/Vol] 3.9 mmol/L Normal 3.5-5.1 [facility] Comment on above: Performed By: #### B MP, BNP, LIPID #### [facility] [address] [address] [address] Silva Burnett Sodium [Moles/Vol] 138 mmol/L Normal 136-145 [facility] Comment on above: Performed By: #### B MP, BNP, LIPID #### [facility] [address] [address] [address] Silva Burnett Urea nitrogen [Mass/Vol] 28.0 mg/dL Critically high 7.0-18.0 [facility] Comment on above: Performed By: #### B MP, BNP, LIPID #### [facility] [address] [address] [address] Silva Burnett Urea nitrogen/Creatinine [Mass ratio] 16.7 mg/mg Normal [facility] Comment on above: Performed By: #### B MP, BNP, LIPID #### [facility] [address] [address] [address] Silva Burnett FREE T3on 07-18-2022 FREE T3 3.48 pg/mlL Normal 2.18-3.98 [facility] Comment on above: Performed By: #### V ITAD #### [facility] [address] [address] [address] Silva Burnett FREE T4on 07-18-2022 Free T4 [Mass/Vol] 0.76 ng/dL Normal 0.76-1.46 [facility] Comment on above: Performed By: #### F T4 #### [facility] [address] [address] [address] Silva Burnett TSHon 07-18-2022 TSH 0.074 uIU/mL Critically low 0.358-3.740 [facility] Comment on above: Performed By: #### V ITAD #### [facility] [address] [address] [address] Silva Burnett TESTOSTERONE, FREE,DIRECT, T OTALon 07-02-2022 Free Testosterone(Direct ) 1.2 pg/mL Critically low 6.6-18.1 [facility] Comment on above: Result Comment: Perf ormed at: BN Performed By: #### B MP, BNP #### [facility] [address] [place] [address] Dr. Silva Burnett Testosterone [Mass/Vol] 103 ng/dL Critically low 264-916 [facility] Comment on above: Result Comment: Adul t male reference interval is based on a population of healthy nonobese males (BMI <30) between 19 and 39 years old. patrick Valdes.al. JCEM 2017,102;4829-5126. PMID: [id number]. Performed at: CB Performed By: #### B MP, BNP #### [facility] [address] [place] [address] Dr. Silva Burnett CORTISOLon 06-29-2022 Cortisol 9.8 ug/dL Normal [facility] Comment on above: Result Comment: Dale isol AM 6.2 - 19.4 Cortisol PM 2.3 - 11.9 Performed By: #### B MP, BNP #### [facility] [address] [place] [address] Dr. Silva Burnett BNPon 06-27-2022 Natriuretic peptide B (Bld) [Mass/Vol] 5384.0 pg/mL Critically high <=1,800.0 [facility] Comment on above: Performed By: #### B MP, BNP #### [facility] [address] [place] [address] Dr. Silva Burnett CBC AUTO DIFFon 06-27-2022 BASO # 0.0 103/ul Normal 0.0-0.1 [facility] Comment on above: Performed By: #### B MP, BNP #### [facility] [address] [place] [address] Dr. Silva Burnett Basophils/100 WBC (Bld) 0.6 % Normal 0.2-2.0 [facility] Comment on above: Performed By: #### B MP, BNP #### [facility] [address] [place] [address] Dr. Silva Burnett EO # 0.4 103/ul Normal 0.0-0.7 [facility] Comment on above: Performed By: #### B MP, BNP #### [facility] [address] [place] [address] Dr. Silva Burnett Eosinophils/100 WBC (Bld) 8.0 % Critically high 0.9-7.0 [facility] Comment on above: Performed By: #### B MP, BNP #### [facility] [address] [place] [address] Dr. Silva Burnett Erythrocyte distribution width (RBC) [Ratio] 15.3 % Critically high 11.0-15.0 [facility] Comment on above: Performed By: #### B MP, BNP #### [facility] [address] [place] [address] Dr. Silva Burnett Hematocrit (Bld) [Volume fraction] 41.0 % Critically low 42.0-54.0 [facility] Comment on above: Performed By: #### B MP, BNP #### [facility] [address] [place] [address] Dr. Silva Burnett Hemoglobin (Bld) [Mass/Vol] 12.8 g/dL Critically low 14.0-18.0 [facility] Comment on above: Performed By: #### B MP, BNP #### [facility] [address] [place] [address] Dr. Silva Burnett IG # 0.02 10e3/ul Normal 0.00-0.03 [facility] Comment on above: Performed By: #### B MP, BNP #### [facility] [address] [place] [address] Dr. Silva Burnett IG % 0.4 % Normal 0.0-0.5 [facility] Comment on above: Performed By: #### B MP, BNP #### [facility] [address] [place] [address] Dr. Silva Burnett LYMPH # 1.3 103/ul Normal 1.2-3.8 [facility] Comment on above: Performed By: #### B MP, BNP #### [facility] [address] [place] [address] Dr. Silva Burnett Lymphocytes/100 WBC (Bld) 25.8 % Normal 20.5-60.0 [facility] Comment on above: Performed By: #### B MP, BNP #### [facility] [address] [place] [address] Dr. Silva Burnett MANUAL DIFF REQ NO Normal [facility] Comment on above: Performed By: #### B MP, BNP #### [facility] [address] [place] [address] Dr. Silva Burnett MCH (RBC) [Entitic mass] 28.9 pg Normal 25.9-34.0 [facility] Comment on above: Performed By: #### B MP, BNP #### [facility] [address] [place] [address] Dr. Silva Burnett MCHC (RBC) [Mass/Vol] 31.2 g/dL Normal 29.9-35.2 [facility] Comment on above: Performed By: #### B MP, BNP #### [facility] [address] [place] [address] Dr. Silva Burnett MCV (RBC) [Entitic vol] 92.6 fL Normal 80.0-94.0 [facility] Comment on above: Performed By: #### B MP, BNP #### [facility] [address] [place] [address] Dr. Silva Burnett MONO # 0.6 103/ul Normal 0.3-0.8 [facility] Comment on above: Performed By: #### B MP, BNP #### [facility] [address] [place] [address] Dr. Silva Burnett Monocytes/100 WBC (Bld) 11.1 % Normal 1.7-12.0 [facility] Comment on above: Performed By: #### B MP, BNP #### [facility] [address] [place] [address] Dr. Silva Burnett NEUT # 2.8 103/ul Normal 1.4-6.5 [facility] Comment on above: Performed By: #### B MP, BNP #### [facility] [address] [address] [address] Silva Burnett Neutrophils/100 WBC (Bld) 54.1 % Normal 43.0-75.0 [facility] Comment on above: Performed By: #### B MP, BNP #### [facility] [address] [address] [address] Silva Burnett Platelet mean volume (Bld) [Entitic vol] 10.0 fL Normal 9.5-13.5 [facility] Comment on above: Performed By: #### B MP, BNP #### [facility] [address] [address] [address] Silva Burnett PLT 144 103/ul Critically low 150-450 [facility] Comment on above: Performed By: #### B MP, BNP #### [facility] [address] [place] [address] Dr. Silva Burnett RBC 4.43 106/ul Critically low 4.70-6.10 [facility] Comment on above: Performed By: #### B MP, BNP #### [facility] [address] [place] [address] Dr. Silva Burnett WBC 5.1 103/ul Normal 4.0-11.0 [facility] Comment on above: Performed By: #### B MP, BNP #### [facility] [address] [place] [address] Dr. Silva Burnett PROF CHEM 8 (BAS METB)on Anion gap [Moles/Vol] 10.2 mmol/L Normal [facility] Comment on above: Performed By: #### B MP, BNP #### [facility] [address] [place] [address] Dr. Silva Burnett Calcium [Mass/Vol] 8.9 mg/dL Normal 8.5-10.1 [facility] Comment on above: Performed By: #### B MP, BNP #### [facility] [address] [place] [address] Dr. Silva Burnett Chloride [Moles/Vol] 104 mmol/L Normal 98-107 [facility] Comment on above: Performed By: #### B MP, BNP #### [facility] [address] [address] [address] Silva Burnett CO2 [Moles/Vol] 27.1 mmol/L Normal 21.0-32.0 [facility] Comment on above: Performed By: #### B MP, BNP #### [facility] [address] [address] [address] Silva Burnett Creatinine [Mass/Vol] 1.61 mg/dL Critically high 0.70-1.30 [facility] Comment on above: Performed By: #### B MP, BNP #### [facility] [address] [address] [address] Silva Burnett EGFR-AF CENTRAL AFRICAN 50 mL/min/1.73m2 Critically low >=60 [facility] Comment on above: Performed By: #### B MP, BNP #### [facility] [address] [place] [address] Dr. Silva Burnett EGFR-NON AF CENTRAL AFRICAN 41 mL/min/1.73m2 Critically low >=60 [facility] Comment on above: Performed By: #### B MP, BNP #### [facility] [address] [address] [address] Silva Burnett Glucose [Mass/Vol] 89 mg/dL Normal 74-106 [facility] Comment on above: Performed By: #### B MP, BNP #### [facility] [address] [address] [address] Silva Burnett Potassium [Moles/Vol] 4.3 mmol/L Normal 3.5-5.1 [facility] Comment on above: Performed By: #### B MP, BNP #### [facility] [address] [address] [address] Silva Burnett Sodium [Moles/Vol] 137 mmol/L Normal 136-145 [facility] Comment on above: Performed By: #### B MP, BNP #### [facility] [address] [address] [address] Silva Burnett Urea nitrogen [Mass/Vol] 28.0 mg/dL Critically high 7.0-18.0 [facility] Comment on above: Performed By: #### B MP, BNP #### [facility] [address] [address] [address] Silva Burnett Urea nitrogen/Creatinine [Mass ratio] 17.4 mg/mg Normal [facility] Comment on above: Performed By: #### B MP, BNP #### [facility] [address] [place] [address] Dr. Silva Burnett VITAMIN D 25 OHon 06-27-2022 VIT D 25-OH 85.2 ng/mL Normal [facility] Comment on above: Performed By: #### V ITAD #### [facility] [address] [address] [address] Silva Burnett VIT D RANGES SEE BELOW Normal [facility] Comment on above: Result Comment: <20 ng/mL Vit D deficient 20 - <30 ng/mL Vit D insufficient 30 - 100 ng/mL Vit D sufficient >100 ng/mL Potential Toxicity Performed By: #### V ITAD #### [facility] [address] [place] [address] Dr. Silva Burnett CREATININEon 06-14-2022 Creatinine [Mass/Vol] 1.71 mg/dL Critically high 0.70-1.30 [facility] Comment on above: Performed By: #### B MP, BNP #### [facility] [address] [place] [address] Dr. Silva Burnett EGFR-AF CENTRAL AFRICAN 47 mL/min/1.73m2 Critically low >=60 [facility] Comment on above: Performed By: #### B MP, BNP #### [facility] [address] [place] [address] Dr. Silva Burnett EGFR-NON AF CENTRAL AFRICAN 39 mL/min/1.73m2 Critically low >=60 [facility] Comment on above: Performed By: #### B MP, BNP #### [facility] [address] [place] [address] Dr. Silva Burnett CTA NECK WO W [...] AYANA FERNANDEZ Date: 2022-06-14 16:39 Normal [facility] BASIC METABOLIC PANELon Calcium [Mass/Vol] 8.8 mg/dL Normal 8.6-10.3 [facility] Comment on above: Order Comment: No: D o not add to previous draw Performed By: #### 2 5508, 31818, 88743, 21242, 40389, 65011 #### [facility] [address] [place] [address], [place] Chloride [Moles/Vol] 103 mmol/L Normal 98-107 [facility] Comment on above: Order Comment: No: D o not add to previous draw Performed By: #### 2 5508, 68141, 28166, 33430, 90178, 52147 #### [facility] [address] [place] [address], [place] CO2 [Moles/Vol] 28 mmol/L Normal 21-31 [facility] Comment on above: Order Comment: No: D o not add to previous draw Performed By: #### 2 5508, 22340, 80848, 85046, 99530, 47405 #### [facility] [address] [place] [address], [facility] Creatinine [Mass/Vol] 1.47 mg/dL High 0.70-1.30 [facility] Comment on above: Order Comment: No: D o not add to previous draw Performed By: #### 2 5508, 20866, 08209, 99735, 66197, 54395 #### [facility] [address] [place] [address], [facility] EGFR 48 ml/min/1.73sq m Abnormal >60 [facility] Comment on above: Order Comment: No: D o not add to previous draw Result Comment: [facility]'s estimated glomerular filtration rate (eGFR) will no [...] of individuals. Performed By: #### 2 5508, 58313, 54419, 68252, 74664, 74072 #### [facility] [address] [place] [address], [place] Glucose [Mass/Vol] 110 mg/dL High 70-100 [facility] Comment on above: Order Comment: No: D o not add to previous draw Performed By: #### 2 5508, 50316, 80685, 46918, 05889, 71505 #### [facility] [address] [place] [address], [place] Potassium [Moles/Vol] 4.3 mmol/L Normal 3.5-5.1 [facility] Comment on above: Order Comment: No: D o not add to previous draw Performed By: #### 2 5508, 29422, 20016, 99239, 64202, 53711 #### [facility] [address] [place] [address], [facility] Sodium [Moles/Vol] 136 mmol/L Normal 136-145 [facility] Comment on above: Order Comment: No: D o not add to previous draw Performed By: #### 2 5508, 74655, 36611, 27278, 41571, 25536 #### [facility] [address] [place] [address], [facility] Urea nitrogen [Mass/Vol] 35 mg/dL High 7-25 [facility] Comment on above: Order Comment: No: D o not add to previous draw Performed By: #### 2 5508, 62581, 47638, 69620, 64614, 08837 #### [facility] [address] [place] [address], [facility] MAGNESIUM BLOODon 05-23-2022 Magnesium [Mass/Vol] 2.2 mg/dL Normal 1.9-2.7 [facility] Comment on above: Order Comment: No: D o not add to previous draw Performed By: #### 2 5508, 54978, 73927, 31604, 67957, 55713 #### [facility] [address] [place] [address], [facility] APTTon 05-22-2022 aPTT Coag (Bld) [Time] 28.0 s Normal 25.0-35.0 [facility] Comment on above: Order Comment: No: D [...] THIS PURPOSE. Performed By: #### 2 5508, 94619, 05960, 60161, 55315, 42386 #### [facility] [address] [place] [address], [facility] BASIC METABOLIC PANELon 09-0 Calcium [Mass/Vol] 9.0 mg/dL Normal 8.6-10.3 [facility] Comment on above: Order Comment: No: D o not add to previous draw Performed By: #### 2 5508, 39382, 42711, 73838, 34485, 65352 #### [facility] [address] [place] [id number], [facility] Chloride [Moles/Vol] 101 mmol/L Normal 98-107 [facility] Comment on above: Order Comment: No: D o not add to previous draw Performed By: #### 2 5508, 31068, 86981, 88245, 29024, 05169 #### [facility] [address] [place] [address], [facility] CO2 [Moles/Vol] 29 mmol/L Normal 21-31 [facility] Comment on above: Order Comment: No: D o not add to previous draw Performed By: #### 2 5508, 16128, 25400, 08377, 49639, 07769 #### [facility] [address] [place] [id number], [facility] Creatinine [Mass/Vol] 1.67 mg/dL High 0.70-1.30 [facility] Comment on above: Order Comment: No: D o not add to previous draw Performed By: #### 2 5508, 24207, 28816, 84529, 04211, 08989 #### [facility] [address] [place] [address], [facility] EGFR 41 ml/min/1.73sq m Abnormal >60 [facility] Comment on above: Order Comment: No: D o not add to previous draw Result Comment: [facility]'s estimated glomerular filtration rate (eGFR) will no [...] of individuals. Performed By: #### 2 5508, 38491, 33019, 07524, 03897, 50916 #### [facility] [address] [place] [address], [place] Glucose [Mass/Vol] 94 mg/dL Normal 70-100 [facility] Comment on above: Order Comment: No: D o not add to previous draw Performed By: #### 2 5508, 71628, 78328, 60421, 32342, 55243 #### [facility] [address] [place] [address], [place] Potassium [Moles/Vol] 4.8 mmol/L Normal 3.5-5.1 [facility] Comment on above: Order Comment: No: D o not add to previous draw Performed By: #### 2 5508, 86013, 43075, 83597, 13626, 01605 #### [facility] [address] [place] [address], [place] Sodium [Moles/Vol] 136 mmol/L Normal 136-145 [facility] Comment on above: Order Comment: No: D o not add to previous draw Performed By: #### 2 5508, 07729, 48212, 71053, 56859, 76605 #### [facility] [address] [place] [address], [place] Urea nitrogen [Mass/Vol] 39 mg/dL High 7-25 [facility] Comment on above: Order Comment: No: D o not add to previous draw Performed By: #### 2 5508, 35923, 30457, 83419, 15091, 45749 #### [facility] [address] [place] [address], [facility] MAGNESIUM BLOODon 05-22-2022 Magnesium [Mass/Vol] 1.8 mg/dL Low 1.9-2.7 [facility] Comment on above: Order Comment: No: D o not add to previous draw Performed By: #### 2 5508, 49091, 85960, 69934, 58879, 09535 #### [facility] [address] [place] [address], [facility] APTTon 05-21-2022 aPTT Coag (Bld) [Time] 30.8 s Normal 25.0-35.0 [facility] Comment on above: Order Comment: No: D [...] THIS PURPOSE. Performed By: #### 2 5508, 79088, 05704, 50809, 27139, 33809 #### [facility] [address] [place] [address], [facility] BASIC METABOLIC PANELon Calcium [Mass/Vol] 8.8 mg/dL Normal 8.6-10.3 [facility] Comment on above: Order Comment: No: D o not add to previous draw Performed By: #### 2 5508, 88601, 35155, 19704, 67530, 26670 #### [facility] [address] [place] [address], [facility] Chloride [Moles/Vol] 103 mmol/L Normal 98-107 [facility] Comment on above: Order Comment: No: D o not add to previous draw Performed By: #### 2 5508, 30658, 93971, 49203, 16955, 78974 #### [facility] [address] [place] [address], [facility] CO2 [Moles/Vol] 26 mmol/L Normal 21-31 [facility] Comment on above: Order Comment: No: D o not add to previous draw Performed By: #### 2 5508, 64518, 20144, 99803, 78097, 94493 #### [facility] [address] [place] [address], [facility] Creatinine [Mass/Vol] 1.47 mg/dL High 0.70-1.30 [facility] Comment on above: Order Comment: No: D o not add to previous draw Performed By: #### 2 5508, 35473, 93261, 94797, 54238, 90811 #### [facility] [address] [place] [address], [facility] EGFR 48 ml/min/1.73sq m Abnormal >60 [facility] Comment on above: Order Comment: No: D o not add to previous draw Result Comment: [facility]'s estimated glomerular filtration rate (eGFR) will no [...] of individuals. Performed By: #### 2 5508, 57801, 05109, 27677, 10661, 70106 #### [facility] [address] [place] [address], [facility] Glucose [Mass/Vol] 88 mg/dL Normal 70-100 [facility] Comment on above: Order Comment: No: D o not add to previous draw Performed By: #### 2 5508, 40540, 38595, 70022, 78603, 14349 #### [facility] [address] [place] [address], [facility] Potassium [Moles/Vol] 3.9 mmol/L Normal 3.5-5.1 [facility] Comment on above: Order Comment: No: D o not add to previous draw Performed By: #### 2 5508, 13619, 71176, 37647, 81236, 68151 #### [facility] [address] [place] [address], [facility] Sodium [Moles/Vol] 137 mmol/L Normal 136-145 [facility] Comment on above: Order Comment: No: D o not add to previous draw Performed By: #### 2 5508, 48340, 70107, 17587, 42053, 47469 #### [facility] [address] [place] [address], [facility] Urea nitrogen [Mass/Vol] 45 mg/dL High 7-25 [facility] Comment on above: Order Comment: No: D o not add to previous draw Performed By: #### 2 5508, 43214, 28125, 00554, 80495, 51994 #### [facility] [address] [place] [address], [facility] CBC COMPLETE BLOOD COUNTon 0 05-21-2022 Erythrocyte distribution width (RBC) [Ratio] 14.4 % Normal 11.5-15.0 [facility] Comment on above: Order Comment: No: D o not add to previous draw Performed By: #### 2 5508, 83728, 10314, 99280, 76501, 13867 #### [facility] [address] [place] [id number], [facility] Hematocrit (Bld) [Volume fraction] 40.8 % Normal 39.0-50.0 [facility] Comment on above: Order Comment: No: D o not add to previous draw Performed By: #### 2 5508, 25028, 55948, 21693, 77212, 13723 #### [facility] [address] [place] [address], [facility] Hemoglobin (Bld) [Mass/Vol] 13.3 g/dL Normal 13.0-17.0 [facility] Comment on above: Order Comment: No: D o not add to previous draw Performed By: #### 2 5508, 76725, 98055, 39985, 78419, 80414 #### [facility] [address] [place] [address], [facility] MCH (RBC) [Entitic mass] 28.4 pg Normal 27.0-33.0 [facility] Comment on above: Order Comment: No: D o not add to previous draw Performed By: #### 2 5508, 97305, 69793, 62149, 38953, 56787 #### [facility] [address] [place] [address], [facility] MCHC (RBC) [Mass/Vol] 32.6 g/dL Normal 32.0-35.0 [facility] Comment on above: Order Comment: No: D o not add to previous draw Performed By: #### 2 5508, 35662, 34859, 21651, 38976, 40646 #### [facility] [address] [place] [address], [facility] MCV (RBC) [Entitic vol] 87.0 fL Normal 82.0-98.0 [facility] Comment on above: Order Comment: No: D o not add to previous draw Performed By: #### 2 5508, 52049, 08637, 84485, 49565, 01034 #### [facility] [address] [place] [address], [facility] Nucleated RBC/100 WBC (Bld) [Ratio] 0 % Normal 0-0 [facility] Comment on above: Order Comment: No: D o not add to previous draw Performed By: #### 2 5508, 82664, 29560, 54889, 94782, 28061 #### [facility] [address] [place] [address], [facility] PLAT CNT 157 10*3/uL Normal 150-400 [facility] Comment on above: Order Comment: No: D o not add to previous draw Performed By: #### 2 5508, 34903, 32628, 38361, 22465, 30728 #### [facility] [address] [place] [address], [facility] RBC (Bld) [#/Vol] 4.69 10*6/uL Normal 4.20-5.70 [facility] Comment on above: Order Comment: No: D o not add to previous draw Performed By: #### 2 5508, 08069, 02887, 96783, 45877, 65469 #### [facility] [address] [place] [address], [facility] WBC (Bld) [#/Vol] 6.19 10*3/uL Normal 4.00-10.60 [facility] Comment on above: Order Comment: No: D o not add to previous draw Performed By: #### 2 5508, 98139, 94887, 25299, 71645, 92243 #### [facility] [address] [place] [address], [facility] MAGNESIUM BLOODon 05-21-2022 Magnesium [Mass/Vol] 1.9 mg/dL Normal 1.9-2.7 [facility] Comment on above: Order Comment: No: D o not add to previous draw Performed By: #### 2 5508, 98233, 39602, 56687, 18620, 54457 #### [facility] [address] [place] [address], [facility] APTTon 05-20-2022 aPTT Coag (Bld) [Time] 28.4 s Normal 25.0-35.0 [facility] Comment on above: Order Comment: No: D [...] THIS PURPOSE. Performed By: #### 2 5508, 53335, 38139, 13067, 43682, 12307 #### [facility] [address] [place] [address], [facility] BASIC METABOLIC PANELon 09-0 -2021 Calcium [Mass/Vol] 9.0 mg/dL Normal 8.6-10.3 [facility] Comment on above: Order Comment: No: D o not add to previous draw Performed By: #### 1 0070, 36238, 44318 #### [facility] [address] [place] [address], [facility] Chloride [Moles/Vol] 105 mmol/L Normal 98-107 [facility] Comment on above: Order Comment: No: D o not add to previous draw Performed By: #### 1 0070, 13488, 16549 #### [facility] [address] [place] [address], [facility] CO2 [Moles/Vol] 26 mmol/L Normal 21-31 [facility] Comment on above: Order Comment: No: D o not add to previous draw Performed By: #### 1 0070, 52181, 74080 #### [facility] [address] [place] [address], [facility] Creatinine [Mass/Vol] 1.42 mg/dL High 0.70-1.30 [facility] Comment on above: Order Comment: No: D o not add to previous draw Performed By: #### 1 0070, 23404, 60695 #### [facility] [address] [place] [address], [facility] EGFR 50 ml/min/1.73sq m Abnormal >60 [facility] Comment on above: Order Comment: No: D o not add to previous draw Result Comment: [facility]'s estimated glomerular filtration rate (eGFR) will no [...] of individuals. Performed By: #### 1 0070, 80533, 40632 #### [facility] [address] [place] [address], [facility] Glucose [Mass/Vol] 107 mg/dL High 70-100 [facility] Comment on above: Order Comment: No: D o not add to previous draw Performed By: #### 1 0070, 01481, 04360 #### [facility] [address] [place] [address], [place] Potassium [Moles/Vol] 3.9 mmol/L Normal 3.5-5.1 [facility] Comment on above: Order Comment: No: D o not add to previous draw Performed By: #### 1 0070, 58022, 23312 #### [facility] [address] [place] [address], [place] Sodium [Moles/Vol] 139 mmol/L Normal 136-145 [facility] Comment on above: Order Comment: No: D o not add to previous draw Performed By: #### 1 0070, 03870, 79068 #### [facility] [address] [place] [address], [place] Urea nitrogen [Mass/Vol] 50 mg/dL High 7-25 [facility] Comment on above: Order Comment: No: D o not add to previous draw Performed By: #### 1 0070, 11840, 57204 #### [facility] [address] CBC COMPLETE BLOOD COUNTon 0 05-20-2022 Erythrocyte distribution width (RBC) [Ratio] 14.3 % Normal 11.5-15.0 [facility] Comment on above: Order Comment: No: D o not add to previous draw Performed By: #### 2 5508, 83703, 40415, 47629, 15015, 36355 #### [facility] [address] [place] [address], [facility] Hematocrit (Bld) [Volume fraction] 44.1 % Normal 39.0-50.0 [facility] Comment on above: Order Comment: No: D o not add to previous draw Performed By: #### 2 5508, 80816, 30376, 32574, 62206, 67776 #### [facility] [address] Hemoglobin (Bld) [Mass/Vol] 14.5 g/dL Normal 13.0-17.0 [facility] Comment on above: Order Comment: No: D o not add to previous draw Performed By: #### 2 5508, 39005, 71453, 32736, 69263, 23719 #### [facility] [address] [place] [address], [facility] IMM PLATELET FRAC 5.4 % Normal 0.8-6.3 [facility] Comment on above: Order Comment: No: D o not add to previous draw Performed By: #### 2 5508, 85833, 41613, 81025, 73493, 65492 #### [facility] [address] [place] [id number], [facility] MCH (RBC) [Entitic mass] 29.1 pg Normal 27.0-33.0 [facility] Comment on above: Order Comment: No: D o not add to previous draw Performed By: #### 2 5508, 76417, 29040, 70038, 85766, 40771 #### [facility] [address] [place] [address], [facility] MCHC (RBC) [Mass/Vol] 32.9 g/dL Normal 32.0-35.0 [facility] Comment on above: Order Comment: No: D o not add to previous draw Performed By: #### 2 5508, 03821, 19092, 89463, 83442, 25201 #### [facility] [address] [place] [id number], [facility] MCV (RBC) [Entitic vol] 88.6 fL Normal 82.0-98.0 [facility] Comment on above: Order Comment: No: D o not add to previous draw Performed By: #### 2 5508, 61758, 08677, 80037, 86921, 59278 #### [facility] [address] [place] [address], [facility] Nucleated RBC/100 WBC (Bld) [Ratio] 0 % Normal 0-0 [facility] Comment on above: Order Comment: No: D o not add to previous draw Performed By: #### 2 5508, 99240, 74868, 84572, 50711, 61448 #### [facility] [address] [place] [address], [facility] PLAT CNT 138 10*3/uL Low 150-400 [facility] Comment on above: Order Comment: No: D o not add to previous draw Performed By: #### 2 5508, 40154, 13994, 29354, 28387, 13016 #### [facility] [address] [place] [id number], [facility] RBC (Bld) [#/Vol] 4.98 10*6/uL Normal 4.20-5.70 [facility] Comment on above: Order Comment: No: D o not add to previous draw Performed By: #### 2 5508, 92152, 33193, 65497, 09761, 28673 #### [facility] [address] WBC (Bld) [#/Vol] 5.80 10*3/uL Normal 4.00-10.60 [facility] Comment on above: Order Comment: No: D o not add to previous draw Performed By: #### 2 5508, 90836, 86682, 02244, 17094, 74714 #### [facility] [address] [place] [address], [facility] MAGNESIUM BLOODon 05-20-2022 Magnesium [Mass/Vol] 2.0 mg/dL Normal 1.9-2.7 [facility] Comment on above: Order Comment: No: D o not add to previous draw Performed By: #### 1 0070, 97093, 47197 #### [facility] [address] [place] [address], [facility] PHOSPHORUS BLOODon Phosphate [Mass/Vol] 3.5 mg/dL Normal 2.5-5.0 [facility] Comment on above: Order Comment: No: D o not add to previous draw Performed By: #### 1 0070, 11505, 59149 #### [facility] [address] APTTon 05-19-2022 aPTT Coag (Bld) [Time] 30.3 s Normal 25.0-35.0 [facility] Comment on above: Order Comment: No: D [...] THIS PURPOSE. Performed By: #### 2 5508, 82840, 03159, 59784, 30297, 10058 #### [facility] [address] [place] [address], [facility] BASIC METABOLIC PANELon 09-0 3-2022 Calcium [Mass/Vol] 8.5 mg/dL Low 8.6-10.3 [facility] Comment on above: Order Comment: No: D o not add to previous draw Performed By: #### 2 5508, 58746, 79204, 07743, 05208, 26508 #### [facility] [address] [place] [id number], [facility] Chloride [Moles/Vol] 104 mmol/L Normal 98-107 [facility] Comment on above: Order Comment: No: D o not add to previous draw Performed By: #### 2 5508, 45956, 96160, 46600, 52662, 86949 #### [facility] [address] [place] [address], [facility] CO2 [Moles/Vol] 24 mmol/L Normal 21-31 [facility] Comment on above: Order Comment: No: D o not add to previous draw Performed By: #### 2 5508, 77878, 43818, 01240, 73897, 65916 #### [facility] [address] [place] [address], [facility] Creatinine [Mass/Vol] 2.02 mg/dL High 0.70-1.30 [facility] Comment on above: Order Comment: No: D o not add to previous draw Performed By: #### 2 5508, 34623, 53373, 85728, 66569, 69515 #### [facility] [address] [place] [address], [facility] EGFR 33 ml/min/1.73sq m Abnormal >60 [facility] Comment on above: Order Comment: No: D o not add to previous draw Result Comment: [facility]'s estimated glomerular filtration rate (eGFR) will no [...] of individuals. Performed By: #### 2 5508, 22836, 06881, 59846, 79472, 69823 #### [facility] [address] [place] [address], [facility] Glucose [Mass/Vol] 121 mg/dL High 70-100 [facility] Comment on above: Order Comment: No: D o not add to previous draw Performed By: #### 2 5508, 59219, 25766, 84870, 74453, 58626 #### [facility] [address] [place] [address], [facility] Potassium [Moles/Vol] 3.1 mmol/L Low 3.5-5.1 [facility] Comment on above: Order Comment: No: D o not add to previous draw Performed By: #### 2 5508, 15803, 81835, 88782, 92434, 05854 #### [facility] [address] [place] [address], [facility] Sodium [Moles/Vol] 137 mmol/L Normal 136-145 [facility] Comment on above: Order Comment: No: D o not add to previous draw Performed By: #### 2 5508, 14773, 51026, 00513, 63171, 65245 #### [facility] [address] [place] [address], [place] Urea nitrogen [Mass/Vol] 61 mg/dL High 7-25 [facility] Comment on above: Order Comment: No: D o not add to previous draw Performed By: #### 2 5508, 05813, 09398, 20885, 84250, 52028 #### [facility] [address] [place] [address], [facility] CBC COMPLETE BLOOD COUNTon 0 9- Erythrocyte distribution width (RBC) [Ratio] 14.2 % Normal 11.5-15.0 [facility] Comment on above: Order Comment: No: D o not add to previous draw Performed By: #### 2 5508, 03344, 17774, 94615, 60548, 42572 #### [facility] [address] [place] [address], [facility] Hematocrit (Bld) [Volume fraction] 41.1 % Normal 39.0-50.0 [facility] Comment on above: Order Comment: No: D o not add to previous draw Performed By: #### 2 5508, 80769, 21032, 86381, 30083, 34260 #### [facility] [address] [place] [address], [facility] Hemoglobin (Bld) [Mass/Vol] 13.8 g/dL Normal 13.0-17.0 [facility] Comment on above: Order Comment: No: D o not add to previous draw Performed By: #### 2 5508, 54966, 73410, 45573, 45760, 90245 #### [facility] [address] [place] [address], [place] IMM PLATELET FRAC 4.8 % Normal 0.8-6.3 [facility] Comment on above: Order Comment: No: D o not add to previous draw Performed By: #### 2 5508, 18245, 17803, 46608, 14809, 14208 #### [facility] [address] [place] [address], [place] MCH (RBC) [Entitic mass] 29.0 pg Normal 27.0-33.0 [facility] Comment on above: Order Comment: No: D o not add to previous draw Performed By: #### 2 5508, 06686, 52787, 04948, 06587, 72009 #### [facility] [address] [place] [address], [place] MCHC (RBC) [Mass/Vol] 33.6 g/dL Normal 32.0-35.0 [facility] Comment on above: Order Comment: No: D o not add to previous draw Performed By: #### 2 5508, 88414, 85733, 08085, 40009, 92866 #### [facility] [address] [place] [address], [facility] MCV (RBC) [Entitic vol] 86.3 fL Normal 82.0-98.0 [facility] Comment on above: Order Comment: No: D o not add to previous draw Performed By: #### 2 5508, 15955, 15398, 08311, 38181, 61659 #### [facility] [address] [place] [id number], [facility] Nucleated RBC/100 WBC (Bld) [Ratio] 0 % Normal 0-0 [facility] Comment on above: Order Comment: No: D o not add to previous draw Performed By: #### 2 5508, 24585, 18330, 70464, 41251, 84473 #### [facility] [address] [place] [id number], [place] PLAT CNT 116 10*3/uL Low 150-400 [facility] Comment on above: Order Comment: No: D o not add to previous draw Performed By: #### 2 5508, 70574, 00694, 77979, 76271, 96642 #### [facility] [address] [place] [id number], [facility] RBC (Bld) [#/Vol] 4.76 10*6/uL Normal 4.20-5.70 [facility] Comment on above: Order Comment: No: D o not add to previous draw Performed By: #### 2 5508, 63129, 81373, 18173, 77243, 50151 #### [facility] [address] [place] [address], [place] WBC (Bld) [#/Vol] 5.16 10*3/uL Normal 4.00-10.60 [facility] Comment on above: Order Comment: No: D o not add to previous draw Performed By: #### 2 5508, 10870, 10282, 97952, 58683, 17882 #### [facility] [address] [place] [address], [facility] Cardiovascular Lab Reporton 05-19-2022 Cardiovascular Lab Report [facility] Patient Name: [facility] Larry MR #: [id number] Department of Physician: Vic Nunes M.D. Division of Service Date: 05/18/2022 Cardiology Birthdate: 1940 Adult Cardiovascular Room #: [id number] [facility] [address] [facility]. [place] [address] Cardiovascular Laboratory Report FINAL IMPRESSIONS: 1. 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 2. Two bypass grafts patent; left internal mammary artery graft to the left anterior descending and saphenous vein graft to the obtuse marginal. 3. Robust xkie-rb-zysys collaterals. 4. Patent left subclavian artery. RECOMMENDATIONS: [...] internal mammary artery graft, placement of a 6-Tanzanian MynxGrip closure device. METHODS: After risks, benefits, and alternatives were explained, written informed consent was obtained. The patient was prepped and draped in usual sterile fashion over both groins. Using 1% lidocaine solution, local infiltration anesthesia was achieved. Using a modified Seldinger technique and a micropuncture kit and on the ultrasound guidance access to the right common femoral artery was obtained. A 6-Tanzanian 11 cm sheath was inserted without difficulty. [...] conclude the procedure. All catheters removed. A 6-Tanzanian MynxGrip closure device was deployed per protocol [...] Hall M.D. Date Trans: 05/19/2022 05:44 A/radha [id number] cc: Samm Thompson M.D. [address] [place] [address] Normal [facility] MAGNESIUM BLOODon 05-19-2022 Magnesium [Mass/Vol] 2.0 mg/dL Normal 1.9-2.7 [facility] Comment on above: Order Comment: No: D o not add to previous draw Performed By: #### 1 0070, 61379 #### [facility] [address] [place] [address], [facility] APTTon 05-18-2022 aPTT Coag (Bld) [Time] 80.7 s Critically high 25.0-35.0 [facility] Comment on above: Order Comment: No: D o not add to previous draw Result Comment: Resu lt checked and called. Accurately read back by BRANDI STOREY RN ON 05/18/2022 AT 14:48 Performed By: #### 2 5508, 82287, 24483, 01629, 79261, 05497 #### [facility] [address] [place] [address], [facility] aPTT Coag (Bld) [Time] 135.2 s Critically high 25.0-35.0 [facility] Comment on above: Order Comment: No: D o not add to previous draw Result Comment: Resu lt checked and called. Accurately read back by Pepe Connolly rn at 0447 Performed By: #### 2 5508, 19368, 72795, 96057, 29207, 25211 #### [facility] [address] [place] [address], [facility] CBC COMPLETE BLOOD COUNTon 0 05-18-2022 Erythrocyte distribution width (RBC) [Ratio] 14.1 % Normal 11.5-15.0 [facility] Comment on above: Order Comment: No: D o not add to previous draw Performed By: #### 2 5508, 06502, 09948, 66643, 24430, 12032 #### [facility] [address] [place] [address], [facility] Hematocrit (Bld) [Volume fraction] 43.0 % Normal 39.0-50.0 [facility] Comment on above: Order Comment: No: D o not add to previous draw Performed By: #### 2 5508, 37954, 89188, 14867, 42516, 80690 #### [facility] [address] [place] [id number], [facility] Hemoglobin (Bld) [Mass/Vol] 14.3 g/dL Normal 13.0-17.0 [facility] Comment on above: Order Comment: No: D o not add to previous draw Performed By: #### 2 5508, 16223, 87641, 48727, 78034, 88215 #### [facility] [address] [place] [address], [facility] MCH (RBC) [Entitic mass] 28.8 pg Normal 27.0-33.0 [facility] Comment on above: Order Comment: No: D o not add to previous draw Performed By: #### 2 5508, 30792, 22768, 80975, 45608, 41154 #### [facility] [address] [place] [address], [facility] MCHC (RBC) [Mass/Vol] 33.3 g/dL Normal 32.0-35.0 [facility] Comment on above: Order Comment: No: D o not add to previous draw Performed By: #### 2 5508, 92320, 01124, 35873, 22163, 12646 #### [facility] [address] [place] [address], [facility] MCV (RBC) [Entitic vol] 86.5 fL Normal 82.0-98.0 [facility] Comment on above: Order Comment: No: D o not add to previous draw Performed By: #### 2 5508, 04203, 07918, 61759, 60163, 25086 #### [facility] [address] [place] [id number], [facility] Nucleated RBC/100 WBC (Bld) [Ratio] 0 % Normal 0-0 [facility] Comment on above: Order Comment: No: D o not add to previous draw Performed By: #### 2 5508, 68158, 05708, 53283, 55679, 36303 #### [facility] [address] [place] [address], [facility] PLAT CNT 105 10*3/uL Low 150-400 [facility] Comment on above: Order Comment: No: D o not add to previous draw Performed By: #### 2 5508, 26091, 92481, 31552, 25085, 02549 #### [facility] [address] [place] [address], [facility] RBC (Bld) [#/Vol] 4.97 10*6/uL Normal 4.20-5.70 [facility] Comment on above: Order Comment: No: D o not add to previous draw Performed By: #### 2 5508, 35108, 80114, 09595, 07414, 16660 #### [facility] [address] [place] [address], [facility] WBC (Bld) [#/Vol] 5.28 10*3/uL Normal 4.00-10.60 [facility] Comment on above: Order Comment: No: D o not add to previous draw Performed By: #### 2 5508, 95629, 93308, 97355, 86171, 91316 #### [facility] [address] [place] [address], [place] POC GLUCOSE LABon 05-18-2022 Glucose [Mass/Vol] 92 mg/dL Normal 70-100 [facility] Comment on above: Performed By: #### 2 5508, 29393, 03382, 90971, 32913, 24361 #### [facility] [address] [place] [address], [place] Glucose [Mass/Vol] 90 mg/dL Normal 70-100 [facility] Comment on above: Performed By: #### 2 5508, 21727, 21342, 37867, 87622, 40575 #### [facility] [address] [place] [address], [facility] PROTHROMBIN TIMEon 2 INR Coag (PPP) [Relative time] 1.41 {INR} High 0.91-1.16 [facility] Comment on above: Order Comment: No: D [...] CHEST 1995;[id number]. Performed By: #### 2 5508, 97450, 65390, 63056, 61123, 71389 #### [facility] [address] [place] [address], [facility] PT Coag (PPP) [Time] 17.2 s High 12.3-14.8 [facility] Comment on above: Order Comment: No: D o not add to previous draw Result Comment: ALL RESULTS MUST BE INTERPRETED WITH RESPECT TO BLOOD DRAWING ARTIFACT OR DILUTION ERROR OF ANTICOAGULANT AT THE TIME OF SAMPLING. Performed By: #### 2 5508, 55171, 08006, 49181, 83251, 04811 #### [facility] [address] [place] [address], [facility] UFH HEPARIN ASSAYon 05-18-20 22 UNFRACTIONATED HEPARIN >1.00 Critically high 0.30-0.70 [facility] Comment on above: Result Comment: Resu lt checked and called. Accurately read back by BRANDI STOREY RN ON 05/18/2022 AT 14:48 Rivaroxaban and Apixaban will interfere with the anti Xa assay used to monitor UFH and LMWH. Performed By: #### 2 5508, 15069, 78265, 53834, 03823, 47331 #### [facility] [address] UNFRACTIONATED HEPARIN >1.00 Critically high 0.30-0.70 [facility] Comment on above: Result Comment: Resu lt checked and called. Accurately read back by Pepe Connolly rn at 0447 Rivaroxaban and Apixaban will interfere with the anti Xa assay used to monitor UFH and LMWH. Performed By: #### 2 5508, 97761, 89259, 20121, 65504, 73394 #### [facility] [address] [facility] [address] *BLOOD CULTUREon 05-17-2022 *BLOOD CULTURE Clinical Report: (D) Specimen: BLOOD CULTURE Collected: 05/17/2022 02:15 Status: Final Last Updated: 05/22/2022 07:50 CULT RES (Final) No Growth Day 5 Normal [facility] Comment on above: Performed By: #### 2 5508, 48773, 14347, 47052, 84064, 74219 #### [facility] [address] [place] [address], [facility] APTTon 05-17-2022 aPTT Coag (Bld) [Time] 147.6 s Critically high 25.0-35.0 [facility] Comment on above: Order Comment: No: D o not add to previous draw Result Comment: Resu lt checked and called. Accurately read back by brandi storey rn on 05/17/2022 at 18:38 Performed By: #### 2 5508, 30672, 39204, 14493, 49809, 70534 #### [facility] [address] [place] [address], [facility] aPTT Coag (Bld) [Time] 103.1 s Critically high 25.0-35.0 [facility] Comment on above: Order Comment: No: D o not add to previous draw Result Comment: Resu lt checked and called. Accurately read back by BRANDI STOREY @ 1000 Performed By: #### 2 5508, 60219, 60110, 17993, 78441, 23945 #### [facility] [address] [place] [address], [facility] aPTT Coag (Bld) [Time] 47.9 s High 25.0-35.0 [facility] Comment on above: Order Comment: No: D [...] THIS PURPOSE. Performed By: #### 2 5508, 78021, 78362, 30514, 59708, 97660 #### [facility] [address] [facility] [place] [address], [facility] BNP (B-TYPE NATRIURETIC PEPT TWIN)on 05-17-2022 Natriuretic peptide B (Bld) [Mass/Vol] 584 pg/mL High 0-100 [facility] Comment on above: Order Comment: No: D o not add to previous draw Result Comment: Give n the appropriate clinical setting a BNP result of >100 pg/mL indicates congestive heart failure. Performed By: #### 2 5508, 61842, 94135, 91416, 31201, 25206 #### [facility] [address] CBC W/DIFFon 05-17-2022 ABS IMM GRANS 0.0 10*3/uL Normal 0.0-0.2 [facility] Comment on above: Order Comment: No: D o not add to previous draw Performed By: #### 2 5508, 92964, 63628, 08305, 73216, 53023 #### [facility] [address] [place] [address], [facility] ABS NEUTROPHILS 3.6 10*3/uL Normal 1.6-7.6 [facility] Comment on above: Order Comment: No: D o not add to previous draw Performed By: #### 2 5508, 16411, 71007, 37383, 55719, 58210 #### [facility] [address] [place] [address], [facility] Basophils (Bld) [#/Vol] 0.0 10*3/uL Normal 0.0-0.2 [facility] Comment on above: Order Comment: No: D o not add to previous draw Performed By: #### 2 5508, 34851, 65796, 03202, 05898, 03070 #### [facility] [address] [place] [address], [facility] Basophils/100 WBC (Bld) 0.6 % Normal 0.0-1.0 [facility] Comment on above: Order Comment: No: D o not add to previous draw Performed By: #### 2 5508, 66499, 17738, 09273, 87275, 13116 #### [facility] [address] [place] [address], [facility] Eosinophils (Bld) [#/Vol] 0.0 10*3/uL Normal 0.0-0.5 [facility] Comment on above: Order Comment: No: D o not add to previous draw Performed By: #### 2 5508, 72129, 27478, 37931, 88060, 39698 #### [facility] [address] [place] [address], [facility] Eosinophils/100 WBC (Bld) 0.2 % Normal 0.0-6.0 [facility] Comment on above: Order Comment: No: D o not add to previous draw Performed By: #### 2 5508, 31006, 59336, 74678, 38242, 73084 #### [facility] [address] [place] [id number], [facility] Erythrocyte distribution width (RBC) [Ratio] 13.9 % Normal 11.5-15.0 [facility] Comment on above: Order Comment: No: D o not add to previous draw Performed By: #### 2 5508, 35849, 75581, 30226, 39376, 37457 #### [facility] [address] [place] [address], [facility] Hematocrit (Bld) [Volume fraction] 40.6 % Normal 39.0-50.0 [facility] Comment on above: Order Comment: No: D o not add to previous draw Performed By: #### 2 5508, 11552, 56983, 88913, 81209, 10386 #### [facility] [address] [place] [address], [facility] Hemoglobin (Bld) [Mass/Vol] 13.7 g/dL Normal 13.0-17.0 [facility] Comment on above: Order Comment: No: D o not add to previous draw Performed By: #### 2 5508, 87168, 41147, 15483, 66572, 87310 #### [facility] [address] [place] [address], [facility] IMM PLATELET FRAC 6.9 % High 0.8-6.3 [facility] Comment on above: Order Comment: No: D o not add to previous draw Performed By: #### 2 5508, 46717, 70046, 51487, 97805, 33320 #### [facility] [address] [place] [address], [facility] IMMATURE GRANS 0.8 % Normal 0.0-1.0 [facility] Comment on above: Order Comment: No: D o not add to previous draw Performed By: #### 2 5508, 00214, 20561, 41166, 33343, 94832 #### [facility] [address] [place] [id number], [facility] Lymphocytes (Bld) [#/Vol] 0.8 10*3/uL Low 1.2-4.0 [facility] Comment on above: Order Comment: No: D o not add to previous draw Performed By: #### 2 5508, 09108, 86901, 58878, 41834, 23557 #### [facility] [address] [facility] [place] [address], [facility] Lymphocytes/100 WBC (Bld) 15.5 % Low 20.0-45.0 [facility] Comment on above: Order Comment: No: D o not add to previous draw Performed By: #### 2 5508, 51820, 00984, 91256, 72889, 82865 #### [facility] [address] [facility] [place] [address], [facility] MCH (RBC) [Entitic mass] 29.3 pg Normal 27.0-33.0 [facility] Comment on above: Order Comment: No: D o not add to previous draw Performed By: #### 2 5508, 50364, 38570, 01552, 24236, 44114 #### [facility] [address] [facility] [place] [address], [facility] MCHC (RBC) [Mass/Vol] 33.7 g/dL Normal 32.0-35.0 [facility] Comment on above: Order Comment: No: D o not add to previous draw Performed By: #### 2 5508, 69783, 15710, 07682, 36464, 59557 #### [facility] [address] [place] [address], [facility] MCV (RBC) [Entitic vol] 86.9 fL Normal 82.0-98.0 [facility] Comment on above: Order Comment: No: D o not add to previous draw Performed By: #### 2 5508, 07678, 09672, 04204, 85289, 16627 #### [facility] [address] [place] [id number], [facility] Monocytes (Bld) [#/Vol] 0.5 10*3/uL Normal 0.1-1.0 [facility] Comment on above: Order Comment: No: D o not add to previous draw Performed By: #### 2 5508, 76976, 77062, 21580, 69870, 20573 #### [facility] [address] MONOS 9.7 % Normal 5.0-12.0 [facility] Comment on above: Order Comment: No: D o not add to previous draw Performed By: #### 2 5508, 35057, 15758, 85277, 69177, 58834 #### [facility] [address] [place] [address], [facility] Neutrophils/100 WBC (Bld) 73.2 % High 40.0-72.0 [facility] Comment on above: Order Comment: No: D o not add to previous draw Performed By: #### 2 5508, 64438, 72458, 47908, 73769, 21875 #### [facility] [address] [place] [address], [facility] Nucleated RBC/100 WBC (Bld) [Ratio] 0 % Normal 0-0 [facility] Comment on above: Order Comment: No: D o not add to previous draw Performed By: #### 2 5508, 78235, 52687, 07800, 70812, 02394 #### [facility] [address] [place] [address], [facility] PLAT CNT 81 10*3/uL Low 150-400 [facility] Comment on above: Order Comment: No: D o not add to previous draw Performed By: #### 2 5508, 09890, 63509, 82352, 56168, 42664 #### [facility] [address] [place] [address], [facility] RBC (Bld) [#/Vol] 4.67 10*6/uL Normal 4.20-5.70 [facility] Comment on above: Order Comment: No: D o not add to previous draw Performed By: #### 2 5508, 07497, 06895, 18062, 86996, 32194 #### [facility] [address] [place] [address], [facility] WBC (Bld) [#/Vol] 4.96 10*3/uL Normal 4.00-10.60 [facility] Comment on above: Order Comment: No: D o not add to previous draw Performed By: #### 2 5508, 69728, 15866, 39527, 48672, 80900 #### [facility] [address] COMP METABOLIC PANELon 05-17 Albumin [Mass/Vol] 3.0 g/dL Low 3.5-5.7 [facility] Comment on above: Order Comment: No: D o not add to previous draw Performed By: #### 2 5508, 45823, 70482, 73447, 85941, 25856 #### [facility] [address] [place] [address], [facility] ALKALINE PHOSPH 48 IU/L Normal 34-104 [facility] Comment on above: Order Comment: No: D o not add to previous draw Performed By: #### 2 5508, 13127, 57384, 63764, 30681, 85001 #### [facility] [address] [place] [address], [place] ALT [Catalytic activity/Vol] 11 U/L Normal 7-52 [facility] Comment on above: Order Comment: No: D o not add to previous draw Performed By: #### 2 5508, 46732, 94422, 50547, 64891, 94575 #### [facility] [address] [place] [address], [place] AST [Catalytic activity/Vol] 19 U/L Normal 13-39 [facility] Comment on above: Order Comment: No: D o not add to previous draw Performed By: #### 2 5508, 31962, 27633, 67847, 64778, 56955 #### [facility] [address] [place] [address], [place] Bilirubin [Mass/Vol] 0.7 mg/dL Normal 0.3-1.0 [facility] Comment on above: Order Comment: No: D o not add to previous draw Performed By: #### 2 5508, 32913, 35894, 55148, 16371, 96004 #### [facility] [address] [place] [address], [place] Calcium [Mass/Vol] 8.5 mg/dL Low 8.6-10.3 [facility] Comment on above: Order Comment: No: D o not add to previous draw Performed By: #### 2 5508, 56618, 17265, 57780, 12433, 54576 #### [facility] [address] [place] [address], [place] Chloride [Moles/Vol] 104 mmol/L Normal 98-107 [facility] Comment on above: Order Comment: No: D o not add to previous draw Performed By: #### 2 5508, 09334, 20567, 15202, 01749, 99551 #### [facility] [address] [place] [address], [place] CO2 [Moles/Vol] 19 mmol/L Low 21-31 [facility] Comment on above: Order Comment: No: D o not add to previous draw Performed By: #### 2 5508, 77119, 40023, 80780, 00904, 54187 #### [facility] [address] [place] [address], [place] Creatinine [Mass/Vol] 1.71 mg/dL High 0.70-1.30 [facility] Comment on above: Order Comment: No: D o not add to previous draw Performed By: #### 2 5508, 21796, 50875, 33989, 89439, 44352 #### [facility] [address] [place] [address], [facility] EGFR 40 ml/min/1.73sq m Abnormal >60 [facility] Comment on above: Order Comment: No: D o not add to previous draw Result Comment: [facility]'s estimated glomerular filtration rate (eGFR) will no [...] of individuals. Performed By: #### 2 5508, 34341, 09987, 03895, 64284, 59675 #### [facility] [address] [place] [address], [place] Glucose [Mass/Vol] 96 mg/dL Normal 70-100 [facility] Comment on above: Order Comment: No: D o not add to previous draw Performed By: #### 2 5508, 60736, 52613, 54547, 82008, 57280 #### [facility] [address] [place] [address], [place] Potassium [Moles/Vol] 3.8 mmol/L Normal 3.5-5.1 [facility] Comment on above: Order Comment: No: D o not add to previous draw Performed By: #### 2 5508, 53766, 39675, 38021, 77165, 88939 #### [facility] [address] [place] [address], [facility] Protein [Mass/Vol] 5.7 g/dL Low 6.0-8.3 [facility] Comment on above: Order Comment: No: D o not add to previous draw Performed By: #### 2 5508, 90423, 55055, 24786, 78675, 00558 #### [facility] [address] [place] [address], [facility] Sodium [Moles/Vol] 133 mmol/L Low 136-145 [facility] Comment on above: Order Comment: No: D o not add to previous draw Performed By: #### 2 5508, 81618, 90479, 21715, 27671, 76489 #### [facility] [address] [place] [address], [facility] Urea nitrogen [Mass/Vol] 57 mg/dL High 7-25 [facility] Comment on above: Order Comment: No: D o not add to previous draw Performed By: #### 2 5508, 39673, 33720, 63608, 61977, 08096 #### [facility] [address] [place] [address], [facility] CPKon 05-17-2022 CK [Catalytic activity/Vol] 44 U/L Normal 30-223 [facility] Comment on above: Order Comment: No: D o not add to previous draw Performed By: #### 2 5508, 71070, 20280, 23369, 79149, 57112 #### [facility] [address] [place] [address], [place] FREE T4on 05-17-2022 Free T4 [Mass/Vol] 0.78 ng/dL Normal 0.71-1.85 [facility] Comment on above: Performed By: #### 2 5508, 37553, 52673, 16117, 04268, 81753 #### [facility] [address] [place] [address], [facility] HEMOGLOBIN A1Con 05-17-2022 Glucose [Moles/Vol] 117 mmol/L Normal [facility] Comment on above: Order Comment: No: D o not add to previous draw Performed By: #### 2 5508, 33832, 15255, 99277, 01737, 31996 #### [facility] [address] [place] [address], [facility] HbA1c (Bld) [Mass fraction] 5.7 % Normal 4.0-6.0 [facility] Comment on above: Order Comment: No: D o not add to previous draw Performed By: #### 2 5508, 72705, 48757, 74273, 15533, 67705 #### [facility] [address] [place] [address], [facility] LACTATE BLOODon 05-17-2022 Lactate [Moles/Vol] 1.0 mmol/L Normal .5-2.2 [facility] Comment on above: Order Comment: No: D o not add to previous draw Performed By: #### 2 5508, 29956, 15747, 56433, 16061, 03919 #### [facility] [address] [place] [address], [facility] LIPID PROFILEon 05-17-2022 Cholesterol [Mass/Vol] 141 mg/dL Normal 120-200 [facility] Comment on above: Order Comment: No: D o not add to previous draw Result Comment: CHOL ESTEROL REFERENCE RANGE: 20 YEARS AND OLDER CARDIOVASCULAR RISK Less than 200 mg/dl Low Risk 200 to 239 mg/dl Borderline Risk 240 mg/dl and greater High Risk Performed By: #### 2 5508, 57231, 42956, 51811, 62603, 97200 #### [facility] [address] [place] [address], [facility] Cholesterol in HDL [Mass/Vol] 22 mg/dL Low 23-92 [facility] Comment on above: Order Comment: No: D o not add to previous draw Result Comment: Slig ht variation in normal range could be due to gender and/or age. HDL CHOLESTEROL REFERENCE RANGE: 20 years and older Cardiovascular Risk > or =60 mg/dL Desirable 40 TO 59 mg/dL Low Risk <40 mg/dL High Risk Performed By: #### 2 5508, 51612, 37011, 00593, 93050, 33948 #### [facility] [address] [place] [address], [facility] Cholesterol in LDL [Mass/Vol] 95 mg/dL Normal 0-130 [facility] Comment on above: Order Comment: No: D o not add to previous draw Result Comment: LDL IS A CALCULATION LDL IS ONLY VALID IF THE TRIG IS LESS THAN 400. Performed By: #### 2 5508, 36581, 50105, 17318, 86320, 33390 #### [facility] [address] [place] [address], [facility] Cholesterol.total/C holesterol in HDL [Mass ratio] 6.4 {ratio} High .0-4.5 [facility] Comment on above: Order Comment: No: D o not add to previous draw Performed By: #### 2 5508, 01002, 38707, 22754, 92831, 83982 #### [facility] [address] [place] [address], [facility] NON-HDL CHOLESTEROL 119 mg/dL Normal [facility] Comment on above: Order Comment: No: D o not add to previous draw Performed By: #### 2 5508, 79013, 05711, 38534, 86230, 20633 #### [facility] [address] [place] [address], [place] Triglyceride [Mass/Vol] 122 mg/dL Normal 40-149 [facility] Comment on above: Order Comment: No: D o not add to previous draw Result Comment: TRIG LYCERIDE REFERENCE RANGE: 20 YEARS AND OLDER CARDIOVASCULAR RISK LESS THAN 150 mg/dl LOW RISK 150 TO 199 mg/dl BORDERLINE RISK 200 mg/dl AND GREATER HIGH RISK Performed By: #### 2 5508, 78800, 57517, 96234, 75198, 51739 #### [facility] [address] [facility] [place] [address], [facility] VLDL CHOL 24 mg/dL Normal 0-40 [facility] Comment on above: Order Comment: No: D o not add to previous draw Performed By: #### 2 5508, 17140, 62573, 08224, 37220, 20086 #### [facility] [address] [place] [address], [facility] POC GLUCOSE LABon 05-17-2022 Glucose [Mass/Vol] 91 mg/dL Normal 70-100 [facility] Comment on above: Performed By: #### 2 5508, 44056, 22428, 93914, 90986, 57692 #### [facility] [address] [place], [place] [address] [place] [address] PORTABLE CHEST 1 VIEWon PORTABLE CHEST 1 VIEW [facility] Department of Radiology [address] [place] [id number] Patient Name: JOSÉ MIGUEL ANTONIO : 1940 Sex: M Age: Race: White Pt. Location: [id number] Patient Status: I Ordered Date: 05/17/2022 2:00:00 [...] report. Electronically signed: Valdemar Coughlin. Transcribed by: [email or web address], User Resident: YARON NORTH Electronically Signed by: VALDEMAR COUGHLIN @ 05/17/2022 03:59 AM I personally read this/these film(s) with this resident Normal [facility] Comment on above: Order Comment: No: D o not add to previous draw PROTHROMBIN TIMEon INR Coag (PPP) [Relative time] 2.07 {INR} High 0.91-1.16 [facility] Comment on above: Order Comment: No: D [...] CHEST 1995;[id number]. Performed By: #### 2 5508, 71576, 84089, 17101, 45436, 67526 #### [facility] [address] PT Coag (PPP) [Time] 22.9 s High 12.3-14.8 [facility] Comment on above: Order Comment: No: D o not add to previous draw Result Comment: ALL RESULTS MUST BE INTERPRETED WITH RESPECT TO BLOOD DRAWING ARTIFACT OR DILUTION ERROR OF ANTICOAGULANT AT THE TIME OF SAMPLING. Performed By: #### 2 5508, 40297, 95889, 55312, 80620, 41564 #### [facility] [address] [place] [address], [facility] TROPONIN-Ion 05-17-2022 Troponin I.cardiac [Mass/Vol] 0.25 ng/mL Critically high 0.00-0.04 [facility] Comment on above: Order Comment: No: D o not add to previous draw Result Comment: M-LA EVIOUS CRITICAL RESULT REFERENCE RANGES: 0.00 - 0.04 ng/ml NORMAL 0.05 - 0.50 ng/ml INDETERMINATE > 0.50 ng/ml CONSISTENT WITH AN M.I. Performed By: #### 2 5508, 48274, 12849, 63656, 78685, 51775 #### [facility] [address] [place] [address], [facility] Troponin I.cardiac [Mass/Vol] 0.31 ng/mL Critically high 0.00-0.04 [facility] Comment on above: Order Comment: No: D o not add to previous draw Result Comment: M-TR OPONIN INITIAL CRITICAL HIGH; RESPUN AND RETESTED M-CRITICAL RESULT(S) REVIEWED, CALLED TO AND READ BACK BY DARIAN CLEMENTS AT 0345 REFERENCE RANGES: 0.00 - 0.04 ng/ml NORMAL 0.05 - 0.50 ng/ml INDETERMINATE > 0.50 ng/ml CONSISTENT WITH AN M.I. Performed By: #### 2 5508, 53520, 11789, 68625, 80684, 52812 #### [facility] [address] TSH3 WITH REFLEX FT4on 05-17 TSH 3RD GENERATION 0.19 uIU/mL Low 0.34-5.60 [facility] Comment on above: Order Comment: No: D o not add to previous draw Performed By: #### 2 5508, 37138, 05336, 28278, 51420, 07415 #### [facility] [address] [place] [address], [facility] UFH HEPARIN ASSAYon 05-17-20 22 UNFRACTIONATED HEPARIN >1.00 Critically high 0.30-0.70 [facility] Comment on above: Result Comment: Resu lt checked and called. Accurately read back by brandi storey rn on 05/17/2022 at 18:38 Rivaroxaban and Apixaban will interfere with the anti Xa assay used to monitor UFH and LMWH. Performed By: #### 2 5508, 87827, 24102, 46259, 30082, 74356 #### [facility] [address] [place] [address], [facility] UNFRACTIONATED HEPARIN >1.00 Critically high 0.30-0.70 [facility] Comment on above: Result Comment: Resu lt checked and called. Accurately read back by BRANDI STOREY @ 1000 Rivaroxaban and Apixaban will interfere with the anti Xa assay used to monitor UFH and LMWH. Performed By: #### 2 5508, 33010, 07830, 42153, 71271, 01527 #### [facility] [address] UNFRACTIONATED HEPARIN >1.00 Critically high 0.30-0.70 [facility] Comment on above: Result Comment: Resu lt checked and called. Accurately read back by Darian Clements RN at 0251 PT on Elquis UFH = 2.79 for pharmacy use Rivaroxaban and Apixaban will interfere with the anti Xa assay used to monitor UFH and LMWH. Performed By: #### 2 5508, 16367, 72332, 08685, 84895, 76376 #### [facility] [address] [facility] [place] [address], [facility] URINALYSIS REFLEXon 05-17-20 Appearance (U) CLEAR Normal CLEAR [facility] Comment on above: Order Comment: No: D o not add to previous draw Performed By: #### 2 5508, 77275, 84299, 11291, 98118, 25487 #### [facility] [address] [facility] [place] [address], [facility] Bilirubin Ql (U) Negative Normal NEGATIVE [facility] Comment on above: Order Comment: No: D o not add to previous draw Performed By: #### 2 5508, 45786, 07702, 80015, 28156, 17923 #### [facility] [address] [facility] [place] [address], [facility] Color (U) YELLOW Normal YELLOW [facility] Comment on above: Order Comment: No: D o not add to previous draw Performed By: #### 2 5508, 87649, 87925, 36224, 10526, 75082 #### [facility] [address] [facility] [place] [address], [facility] EPIS NONE SEEN Normal FEW,OCC,NONE SEEN [facility] Comment on above: Order Comment: No: D o not add to previous draw Performed By: #### 2 5508, 48735, 71993, 46458, 72542, 93347 #### [facility] [address] [place] [address], [facility] Glucose Ql (U) Negative Normal NEGATIVE [facility] Comment on above: Order Comment: No: D o not add to previous draw Performed By: #### 2 5508, 33696, 19379, 41932, 01182, 50827 #### [facility] [address] [place] [address], [facility] Hemoglobin Ql (U) TRACE Abnormal NEGATIVE [facility] Comment on above: Order Comment: No: D o not add to previous draw Performed By: #### 2 5508, 42633, 81487, 10693, 86434, 85426 #### [facility] [address] [place] [address], [facility] KETONE Negative Normal NEGATIVE [facility] Comment on above: Order Comment: No: D o not add to previous draw Performed By: #### 2 5508, 94837, 08976, 19539, 27721, 46533 #### [facility] [address] [place] [address], [facility] LEUK MARQUITA Negative Normal NEGATIVE [facility] Comment on above: Order Comment: No: D o not add to previous draw Performed By: #### 2 5508, 89016, 74662, 04653, 16547, 57394 #### [facility] [address] [place] [address], [facility] MUCUS THREADS OCC Abnormal NONE SEEN [facility] Comment on above: Order Comment: No: D o not add to previous draw Performed By: #### 2 5508, 23984, 59499, 68397, 26647, 57808 #### [facility] [address] [place] [address], [place] Nitrite Ql (U) Negative Normal NEGATIVE [facility] Comment on above: Order Comment: No: D o not add to previous draw Performed By: #### 2 5508, 57519, 63597, 35382, 18713, 27726 #### [facility] [address] [place] [address], [facility] pH (U) 5.5 [pH] Normal 5.0-8.0 [facility] Comment on above: Order Comment: No: D o not add to previous draw Performed By: #### 2 5508, 33448, 87091, 31314, 41248, 27834 #### [facility] [address] [place] [address], [facility] Protein Ql (U) 30 Abnormal NEGATIVE [facility] Comment on above: Order Comment: No: D o not add to previous draw Performed By: #### 2 5508, 79984, 56333, 46885, 41887, 68000 #### [facility] [address] [place] [address], [facility] RBC 3-5 Abnormal NONE SEEN [facility] Comment on above: Order Comment: No: D o not add to previous draw Performed By: #### 2 5508, 44121, 15565, 73427, 52918, 07828 #### [facility] [address] [facility] [place] [address], [facility] SPEC GRAV 1.015 Normal 1.015-1.020 [facility] Comment on above: Order Comment: No: D o not add to previous draw Performed By: #### 2 5508, 44307, 68426, 33788, 04501, 35150 #### [facility] [address] [place] [address], [facility] WBC UA 0-2 Abnormal NONE SEEN [facility] Comment on above: Order Comment: No: D o not add to previous draw Performed By: #### 2 5508, 17193, 46251, 43235, 52561, 47032 #### [facility] [address] [place] [address], [facility] BNPon 08-31-2022 Natriuretic peptide B (Bld) [Mass/Vol] 56499.0 pg/mL Critically high <=1,800.0 The [facility] Comment on above: Performed By: #### B MP, BNP #### [facility] [address] [place] [address] Dr. Silva Burnett CBC AUTO DIFFon 05-16-2022 BASO # 0.0 103/ul Normal 0.0-0.1 [facility] Comment on above: Performed By: #### V ITAD #### [facility] [address] [place] [address] Dr. Silva Burnett Basophils/100 WBC (Bld) 0.6 % Normal 0.2-2.0 [facility] Comment on above: Performed By: #### V ITAD #### [facility] [address] [place] [address] Dr. Silva Burnett EO # 0.0 103/ul Normal 0.0-0.7 [facility] Comment on above: Performed By: #### V ITAD #### [facility] [address] [place] [address] Dr. Silva Burnett Eosinophils/100 WBC (Bld) 0.1 % Critically low 0.9-7.0 [facility] Comment on above: Performed By: #### V ITAD #### [facility] [address] [place] [address] Dr. Silva Burnett Erythrocyte distribution width (RBC) [Ratio] 13.7 % Normal 11.0-15.0 [facility] Comment on above: Performed By: #### V ITAD #### [facility] [address] [place] [address] Dr. Silva Burnett Hematocrit (Bld) [Volume fraction] 45.5 % Normal 42.0-54.0 [facility] Comment on above: Performed By: #### V ITAD #### [facility] [address] [place] [address] Dr. Silva Burnett Hemoglobin (Bld) [Mass/Vol] 14.9 g/dL Normal 14.0-18.0 [facility] Comment on above: Performed By: #### V ITAD #### [facility] [address] [address] [address] Silva Burnett IG # 0.04 10e3/ul Critically high 0.00-0.03 [facility] Comment on above: Performed By: #### V ITAD #### [facility] [address] [address] [address] Silva Burnett IG % 0.6 % Critically high 0.0-0.5 [facility] Comment on above: Performed By: #### V ITAD #### [facility] [address] [place] [address] Dr. Silva Burnett LYMPH # 0.8 103/ul Critically low 1.2-3.8 [facility] Comment on above: Performed By: #### V ITAD #### [facility] [address] [place] [address] Dr. Silva Burnett Lymphocytes/100 WBC (Bld) 11.9 % Critically low 20.5-60.0 [facility] Comment on above: Performed By: #### V ITAD #### [facility] [address] [place] [address] Dr. Silva Burnett MANUAL DIFF REQ NO Normal [facility] Comment on above: Performed By: #### V ITAD #### [facility] [address] [place] [address] Dr. Silva Burnett MCH (RBC) [Entitic mass] 29.0 pg Normal 25.9-34.0 [facility] Comment on above: Performed By: #### V ITAD #### [facility] [address] [place] [address] Dr. Silva Burnett MCHC (RBC) [Mass/Vol] 32.7 g/dL Normal 29.9-35.2 [facility] Comment on above: Performed By: #### V ITAD #### [facility] [address] [place] [address] Dr. Silva Burnett MCV (RBC) [Entitic vol] 88.7 fL Normal 80.0-94.0 [facility] Comment on above: Performed By: #### V ITAD #### [facility] [address] [address] [address] Silva Burnett MONO # 0.4 103/ul Normal 0.3-0.8 [facility] Comment on above: Performed By: #### V ITAD #### [facility] [address] [address] [address] Silva Burnett Monocytes/100 WBC (Bld) 6.5 % Normal 1.7-12.0 [facility] Comment on above: Performed By: #### V ITAD #### [facility] [address] [place] [address] Dr. Silva Burnett NEUT # 5.4 103/ul Normal 1.4-6.5 [facility] Comment on above: Performed By: #### V ITAD #### [facility] [address] [place] [address] Dr. Silva Burnett Neutrophils/100 WBC (Bld) 80.3 % Critically high 43.0-75.0 [facility] Comment on above: Performed By: #### V ITAD #### [facility] [address] [place] [address] Dr. Silva Burnett Platelet mean volume (Bld) [Entitic vol] 11.5 fL Normal 9.5-13.5 [facility] Comment on above: Performed By: #### V ITAD #### [facility] [address] [place] [address] Dr. Silva Burnett PLT 111 103/ul Critically low 150-450 The [facility] Comment on above: Performed By: #### V ITAD #### [facility] [address] [place] [address] Dr. Silva Burnett RBC 5.13 106/ul Normal 4.70-6.10 [facility] Comment on above: Performed By: #### V ITAD #### [facility] [address] [place] [address] Dr. Silva Burnett WBC 6.7 103/ul Normal 4.0-11.0 [facility] Comment on above: Performed By: #### V ITAD #### [facility] [address] [place] [address] HEAD WO CONon [...] LINDA JUNIOR Date: 2022-05-16 17:37 Normal [facility] CULTURE URINEon 05-16-2022 CULTURE URINE Culture Observations : NO GROWTH. Normal [facility] Comment on above: Performed By: #### V ITAD #### [facility] [address] [place] [address] Dr. Silva Burnett Covid-19 PCR (CVDTB)on 04-18 SARS-CoV-2 (COVID-19) RNA BRANT+probe Ql (Unsp spec) Not detected Normal NOT DETECTED [facility] Comment on [...] for this test is supported by the [place] of [employer] and Human Service's declaration that [...] longer be used). Performed By: #### C VDTB #### [facility] [address] [place] [address] Dr. Silva Burnett ER URINE PROFILEon 2 Bilirubin Ql (U) Negative Normal NEGATIVE [facility] Comment on above: Performed By: #### B MP, BNP #### [facility] [address] [place] [address] Dr. Silva Burnett Clarity (U) CLEAR Normal CLEAR [facility] Comment on above: Performed By: #### B MP, BNP #### [facility] [address] [place] [address] Dr. Silva Burnett Color (U) DK. YELLOW Normal YELLOW [facility] Comment on above: Performed By: #### B MP, BNP #### [facility] [address] [place] [address] Dr. Silva Burnett ERUAHD A micrscopic examina tion will be performed if indicated. Normal [facility] Comment on above: Performed By: #### B MP, BNP #### [facility] [address] [place] [address] Dr. Silva Burnett Glucose Ql (U) Negative Normal NEGATIVE The [facility] Comment on above: Performed By: #### B MP, BNP #### [facility] [address] [place] [address] Dr. Silva Burnett Hemoglobin Ql (U) TRACE-INTACT Abnormal NEGATIVE [facility] Comment on above: Performed By: #### B MP, BNP #### [facility] [address] [place] [address] Dr. Silva Burnett Ketones Ql (U) TRACE Abnormal NEGATIVE [facility] Comment on above: Performed By: #### B MP, BNP #### [facility] [address] [place] [address] Dr. Silva Burnett LEUKOCYTES Negative Normal NEGATIVE [facility] Comment on above: Performed By: #### B MP, BNP #### [facility] [address] [place] [address] Dr. Silva Burnett Nitrite Ql (U) Negative Normal NEGATIVE [facility] Comment on above: Performed By: #### B MP, BNP #### [facility] [address] [place] [address] Dr. Silva Burnett pH (U) 5.5 [pH] Normal 5-9 [facility] Comment on above: Performed By: #### B MP, BNP #### [facility] [address] [place] [address] Dr. Silva Burnett Protein (U) [Mass/Vol] 30 mg/dL Abnormal NEGATIVE/ TRACE [facility] Comment on above: Performed By: #### B MP, BNP #### [facility] [address] [place] [address] Dr. Silva Burnett SPEC GRAVITY 1.025 Normal 1.005-<=1.02 5 [facility] Comment on above: Performed By: #### B MP, BNP #### [facility] [address] [place] [address] Dr. Silva Burnett UR MICRO IND INDICATED Normal [facility] Comment on above: Performed By: #### B MP, BNP #### [facility] [address] [place] [address] Dr. Silva Burnett Urobilinogen Qn (U) 0.2 {Zaina'U}/dL Normal 0.2 - 1. 0 [facility] Comment on above: Performed By: #### B MP, BNP #### [facility] [address] [place] [address] Dr. Silva Burnett PROF 14(COMP METB)on 022 Albumin [Mass/Vol] 2.8 g/dL Critically low 3.4-5.0 Th [facility] Comment on above: Performed By: #### B MP, BNP #### [facility] [address] [place] [address] Dr. Silva Burnett Albumin/Globulin [Mass ratio] 0.7 {ratio} Normal [facility] Comment on above: Performed By: #### B MP, BNP #### [facility] [address] [place] [address] Dr. Silva Burnett ALP [Catalytic activity/Vol] 69 U/L Normal 46-116 [facility] Comment on above: Performed By: #### B MP, BNP #### [facility] [address] [place] [address] Dr. Silva Burnett ALT [Catalytic activity/Vol] 16 U/L Normal 16-63 [facility] Comment on above: Performed By: #### B MP, BNP #### [facility] [address] [place] [address] Dr. Silva Burnett Anion gap [Moles/Vol] 15.2 mmol/L Normal [facility] Comment on above: Performed By: #### B MP, BNP #### [facility] [address] [place] [address] Dr. Silva Burntet AST [Catalytic activity/Vol] 30 U/L Normal 15-37 [facility] Comment on above: Performed By: #### B MP, BNP #### [facility] [address] [place] [address] Dr. Silva Burnett Bilirubin [Mass/Vol] 0.9 mg/dL Normal 0.2-1.0 [facility] Comment on above: Performed By: #### B MP, BNP #### [facility] [address] [place] [address] Dr. Silva Burnett Calcium [Mass/Vol] 9.0 mg/dL Normal 8.5-10.1 [facility] Comment on above: Performed By: #### B MP, BNP #### [facility] [address] [place] [address] Dr. Silva Burnett Chloride [Moles/Vol] 98 mmol/L Normal 98-107 [facility] Comment on above: Performed By: #### B MP, BNP #### [facility] [address] [place] [address] Dr. Silva Burnett CO2 [Moles/Vol] 22.9 mmol/L Normal 21.0-32.0 [facility] Comment on above: Performed By: #### B MP, BNP #### [facility] [address] [place] [address] Dr. Silva Burnett Creatinine [Mass/Vol] 2.20 mg/dL Critically high 0.70-1.30 [facility] Comment on above: Performed By: #### B MP, BNP #### [facility] [address] [address] [address] Silva Burnett EGFR-AF CENTRAL AFRICAN 35 mL/min/1.73m2 Critically low >=60 [facility] Comment on above: Performed By: #### B MP, BNP #### [facility] [address] [place] [address] Dr. Silva Burnett EGFR-NON AF CENTRAL AFRICAN 29 mL/min/1.73m2 Critically low >=60 [facility] Comment on above: Performed By: #### B MP, BNP #### [facility] [address] [place] [address] Dr. Silva Burnett Globulin (S) [Mass/Vol] 4.0 g/dL Normal [facility] Comment on above: Performed By: #### B MP, BNP #### [facility] [address] [place] [address] Dr. Silva Burnett Glucose [Mass/Vol] 148 mg/dL Critically high 74-106 [facility] Comment on above: Performed By: #### B MP, BNP #### [facility] [address] [place] [address] Dr. Silva Burnett Potassium [Moles/Vol] 4.1 mmol/L Normal 3.5-5.1 [facility] Comment on above: Performed By: #### B MP, BNP #### [facility] [address] [place] [address] Dr. Silva Burnett Protein [Mass/Vol] 6.8 g/dL Normal 6.4-8.2 [facility] Comment on above: Performed By: #### B MP, BNP #### [facility] [address] [place] [address] Dr. Silva Burnett Sodium [Moles/Vol] 132 mmol/L Critically low 136-145 Th e [facility] Comment on above: Performed By: #### B MP, BNP #### [facility] [address] [place] [address] Dr. Silva Burnett Urea nitrogen [Mass/Vol] 60.0 mg/dL Critically high 7.0-18.0 [facility] Comment on above: Performed By: #### B MP, BNP #### [facility] [address] [place] [address] Dr. Silva Burnett Urea nitrogen/Creatinine [Mass ratio] 27.3 mg/mg Normal [facility] Comment on above: Performed By: #### B MP, BNP #### [facility] [address] [place] [address] Dr. Silva Burnett PROTIMEon 05-16-2022 INR Coag (PPP) [Relative time] 1.43 {INR} Normal [facility] Comment on above: Performed By: #### V ITAD #### [facility] [address] [place] [address] Dr. Silva Burnett INR GUIDELINES SEE BELOW Normal The [facility] Comment on above: Result Comment: EDMOND RED INR: 2.0 - 3.0 CONDITIONS NOT LISTED BELOW 2.5 - 3.5 FOR PROSTHETIC HEART VALVE REPLACEMENT 2.5 - 3.5 RECURRENT THROMBOSIS Performed By: #### V ITAD #### [facility] [address] [place] [address] Dr. Silva Burnett PT Coag (PPP) [Time] 15.1 s Critically high 9.0-11.6 [facility] Comment on above: Performed By: #### V ITAD #### [facility] [address] [place] [address] Dr. Silva Burnett PTTon 05-16-2022 aPTT Coag (Bld) [Time] 35.6 s Normal 22.3-36.2 [facility] Comment on above: Performed By: #### V ITAD #### [facility] [address] [place] [address] Dr. Silva Burnett TROPONIN, HIGH SENSITIVITYon 05-16-2022 HSTROP 895.9 pg/mL Critically high 4.0-76.1 [facility] Comment on above: Result Comment: CUT- OFF POINTS HAVE BEEN ESTABLISHED BASED ON THE FOURTH UNIVERSAL DEFINITIONS OF MYOCARDIAL INFARCTION. THE UPPER REFERENCE LIMIT (URL) OF TROPONIN, DEFINED THE 99TH PERCENTILE OF cTnI DISTRIBUTION IN A REFERENCE POPULATION, HAS BEEN CONFIRMED THE DECISION THRESHOLD FOR ID DIAGNOSIS. Performed By: #### B MP, BNP #### [facility] [address] [place] [address] Dr. Silva Burnett HSTROP 1000.5 pg/mL Critically high 4.0-76.1 [facility] Comment on above: Result Comment: CUT- OFF POINTS HAVE BEEN ESTABLISHED BASED ON THE FOURTH UNIVERSAL DEFINITIONS OF MYOCARDIAL INFARCTION. THE UPPER REFERENCE LIMIT (URL) OF TROPONIN, DEFINED THE 99TH PERCENTILE OF cTnI DISTRIBUTION IN A REFERENCE POPULATION, HAS BEEN CONFIRMED THE DECISION THRESHOLD FOR ID DIAGNOSIS. Performed By: #### B MP, BNP #### [facility] [address] [place] [address] Dr. Silva Burnett URINE MICROSCOPIC ONLYon BACTERIA TRACE Abnormal NONE SEEN The [facility] Comment on above: Performed By: #### B MP, BNP #### [facility] [address] [place] [address] Dr. Silva Burnett Bacteria identified Cx Nom (U) INDICATED Normal [facility] Comment on above: Performed By: #### B MP, BNP #### [facility] Laboratory [address] [place] [address] Dr. Silva Burnett CAST SEEN Abnormal NONE SEEN [facility] Comment on above: Performed By: #### B MP, BNP #### [facility] Laboratory [address] [place] [address] Dr. Silva Burnett Crystals LM Nom (Urine sed) NONE SEEN Normal NONE SEEN [facility] Comment on above: Performed By: #### B MP, BNP #### [facility] Laboratory [address] [place] [address] Dr. Silva Burnett Epithelial cells LM Ql (Urine sed) FEW Abnormal NONE SEEN /RARE [facility] Comment on above: Performed By: #### B MP, BNP #### [facility] [address] [address] [address] Silva Burnett HYALINE CAST FEW Normal [facility] Comment on above: Performed By: #### B MP, BNP #### [facility] [address] [address] [address] Silva Burnett MUCOUS SMALL Abnormal NONE SEEN [facility] Comment on above: Performed By: #### B MP, BNP #### [facility] [address] [address] [address] Silva Burnett RBC 0-2 Normal 0-2 [facility] Comment on above: Performed By: #### B MP, BNP #### [facility] [address] [place] [address] Dr. Silva Burnett WBC 5-10 Abnormal NONE SEEN [facility] Comment on above: Performed By: #### B MP, BNP #### [facility] [address] [place] [address] Dr. Silva Burnett XR CHEST 1 Von [...] AYANA FERNANDEZ Date: 2022-05-16 15:53 Normal [facility] BNPon 05-14-2022 NT PRO BNP >46385.0 Critically high <=1,800.0 [facility] Comment on above: Performed By: #### B MP, BNP #### [facility] [address] [place] [address] Dr. Silva Burnett CBC AUTO DIFFon 05-14-2022 BASO # 0.0 103/ul Normal 0.0-0.1 [facility] Comment on above: Performed By: #### B MP, BNP #### [facility] [address] [place] [address] Dr. Silva Burnett Basophils/100 WBC (Bld) 0.3 % Normal 0.2-2.0 [facility] Comment on above: Performed By: #### B MP, BNP #### [facility] [address] [place] [address] Dr. Silva Burnett EO # 0.0 103/ul Normal 0.0-0.7 [facility] Comment on above: Performed By: #### B MP, BNP #### [facility] [address] [place] [address] Dr. Silva Burnett Eosinophils/100 WBC (Bld) 0.0 % Critically low 0.9-7.0 [facility] Comment on above: Performed By: #### B MP, BNP #### [facility] [address] [place] [address] Dr. Silva Burnett Erythrocyte distribution width (RBC) [Ratio] 13.6 % Normal 11.0-15.0 [facility] Comment on above: Performed By: #### B MP, BNP #### [facility] [address] [place] [address] Dr. Silva Burnett Hematocrit (Bld) [Volume fraction] 41.8 % Critically low 42.0-54.0 [facility] Comment on above: Performed By: #### B MP, BNP #### [facility] [address] [place] [address] Dr. Silva Burnett Hemoglobin (Bld) [Mass/Vol] 13.6 g/dL Critically low 14.0-18.0 [facility] Comment on above: Performed By: #### B MP, BNP #### [facility] [address] [place] [address] Dr. Silva Burnett IG # 0.04 10e3/ul Critically high 0.00-0.03 [facility] Comment on above: Performed By: #### B MP, BNP #### [facility] [address] [place] [address] Dr. Silva Burnett IG % 0.5 % Normal 0.0-0.5 [facility] Comment on above: Performed By: #### B MP, BNP #### [facility] [address] [place] [address] Dr. Silva Burnett LYMPH # 0.5 103/ul Critically low 1.2-3.8 [facility] Comment on above: Performed By: #### B MP, BNP #### [facility] [address] [place] [address] Dr. Silva Burnett Lymphocytes/100 WBC (Bld) 7.1 % Critically low 20.5-60.0 [facility] Comment on above: Performed By: #### B MP, BNP #### [facility] [address] [place] [address] Dr. Silva Burnett MANUAL DIFF REQ NO Normal [facility] Comment on above: Performed By: #### B MP, BNP #### [facility] [address] [place] [address] Dr. Silva Burnett MCH (RBC) [Entitic mass] 29.4 pg Normal 25.9-34.0 [facility] Comment on above: Performed By: #### B MP, BNP #### [facility] [address] [place] [address] Dr. Silva Burnett MCHC (RBC) [Mass/Vol] 32.5 g/dL Normal 29.9-35.2 [facility] Comment on above: Performed By: #### B MP, BNP #### [facility] [address] [place] [address] Dr. Silva Burnett MCV (RBC) [Entitic vol] 90.3 fL Normal 80.0-94.0 [facility] Comment on above: Performed By: #### B MP, BNP #### [facility] [address] [place] [address] Dr. Silva Burnett MONO # 0.4 103/ul Normal 0.3-0.8 [facility] Comment on above: Performed By: #### B MP, BNP #### [facility] [address] [place] [address] Dr. Silva Burnett Monocytes/100 WBC (Bld) 5.4 % Normal 1.7-12.0 [facility] Comment on above: Performed By: #### B MP, BNP #### [facility] [address] [place] [address] Dr. Silva Burnett NEUT # 6.6 103/ul Critically high 1.4-6.5 [facility] Comment on above: Performed By: #### B MP, BNP #### [facility] [address] [place] [address] Dr. Silva Burnett Neutrophils/100 WBC (Bld) 86.7 % Critically high 43.0-75.0 [facility] Comment on above: Performed By: #### B MP, BNP #### [facility] [address] [place] [address] Dr. Silva Burnett Platelet mean volume (Bld) [Entitic vol] 10.4 fL Normal 9.5-13.5 [facility] Comment on above: Performed By: #### B MP, BNP #### [facility] [address] [place] [address] Dr. Silva Burnett PLT 110 103/ul Critically low 150-450 [facility] Comment on above: Performed By: #### B MP, BNP #### [facility] [address] [place] [address] Dr. Silva Burnett RBC 4.63 106/ul Critically low 4.70-6.10 [facility] Comment on above: Performed By: #### B MP, BNP #### [facility] [address] [place] [address] Dr. Silva Burnett WBC 7.6 103/ul Normal 4.0-11.0 [facility] Comment on above: Performed By: #### B MP, BNP #### [facility] [address] [place] [address] Dr. Silva Burnett CULTURE URINEon 05-14-2022 CULTURE URINE Culture Observations : NO GROWTH. Normal [facility] Comment on above: Performed By: #### V ITAD #### [facility] [address] [place] [address] Dr. Silva Burnett IRONon 05-14-2022 Iron [Mass/Vol] 18.0 ug/dL Critically low 65.0-175.0 [facility] Comment on above: Performed By: #### I CUBA #### [facility] [address] [place] [address] Dr. Silva Burnett PROF 14(COMP METB)on 022 Albumin [Mass/Vol] 3.4 g/dL Normal 3.4-5.0 [facility] Comment on above: Performed By: #### B MP, BNP #### [facility] [address] [place] [address] Dr. Silva Burnett Albumin/Globulin [Mass ratio] 0.8 {ratio} Normal [facility] Comment on above: Performed By: #### B MP, BNP #### [facility] [address] [place] [address] Dr. Silva Burnett ALP [Catalytic activity/Vol] 77 U/L Normal 46-116 [facility] Comment on above: Performed By: #### B MP, BNP #### [facility] [address] [place] [address] Dr. Silva Burnett ALT [Catalytic activity/Vol] 16 U/L Normal 16-63 [facility] Comment on above: Performed By: #### B MP, BNP #### [facility] [address] [place] [address] Dr. Silva Burnett Anion gap [Moles/Vol] 13.3 mmol/L Normal [facility] Comment on above: Performed By: #### B MP, BNP #### [facility] [address] [place] [address] Dr. Silva Burnett AST [Catalytic activity/Vol] 23 U/L Normal 15-37 [facility] Comment on above: Performed By: #### B MP, BNP #### [facility] [address] [place] [address] Dr. Silva Burnett Bilirubin [Mass/Vol] 0.9 mg/dL Normal 0.2-1.0 [facility] Comment on above: Performed By: #### B MP, BNP #### [facility] [address] [address] [address] Silva Burnett Calcium [Mass/Vol] 9.3 mg/dL Normal 8.5-10.1 [facility] Comment on above: Performed By: #### B MP, BNP #### [facility] [address] [place] [address] Dr. Silva Burnett Chloride [Moles/Vol] 98 mmol/L Normal 98-107 [facility] Comment on above: Performed By: #### B MP, BNP #### [facility] [address] [place] [address] Dr. Silva Burnett CO2 [Moles/Vol] 26.0 mmol/L Normal 21.0-32.0 [facility] Comment on above: Performed By: #### B MP, BNP #### [facility] [address] [place] [address] Dr. Silva Burnett Creatinine [Mass/Vol] 1.84 mg/dL Critically high 0.70-1.30 [facility] Comment on above: Performed By: #### B MP, BNP #### [facility] [address] [place] [address] Dr. Silva Burnett EGFR-AF CENTRAL AFRICAN 43 mL/min/1.73m2 Critically low >=60 [facility] Comment on above: Performed By: #### B MP, BNP #### [facility] [address] [place] [address] Dr. Silva Burnett EGFR-NON AF CENTRAL AFRICAN 36 mL/min/1.73m2 Critically low >=60 [facility] Comment on above: Performed By: #### B MP, BNP #### [facility] [address] [place] [address] Dr. Silva Burnett Globulin (S) [Mass/Vol] 4.1 g/dL Normal [facility] Comment on above: Performed By: #### B MP, BNP #### [facility] [address] [place] [address] Dr. Silva Burnett Glucose [Mass/Vol] 132 mg/dL Critically high 74-106 [facility] Comment on above: Performed By: #### B MP, BNP #### [facility] [address] [place] [address] Dr. Silva Burnett Potassium [Moles/Vol] 4.3 mmol/L Normal 3.5-5.1 [facility] Comment on above: Performed By: #### B MP, BNP #### [facility] [address] [place] [address] Dr. Silva Burnett Protein [Mass/Vol] 7.5 g/dL Normal 6.4-8.2 [facility] Comment on above: Performed By: #### B MP, BNP #### [facility] [address] [place] [address] Dr. Silva Burnett Sodium [Moles/Vol] 133 mmol/L Critically low 136-145 [facility] Comment on above: Performed By: #### B MP, BNP #### [facility] [address] [place] [address] Dr. Silva Burnett Urea nitrogen [Mass/Vol] 38.0 mg/dL Critically high 7.0-18.0 [facility] Comment on above: Performed By: #### B MP, BNP #### [facility] [address] [place] [address] Dr. Silva Burnett Urea nitrogen/Creatinine [Mass ratio] 20.7 mg/mg Normal [facility] Comment on above: Performed By: #### B MP, BNP #### [facility] [address] [place] [address] Dr. Silva Burnett UA RANDOM W/MICROSCOPICon BACTERIA NONE SEEN Normal NONE SEEN [facility] Comment on above: Performed By: #### U AMIC #### [facility] [address] [place] [address] Dr. Silva Burnett Bilirubin Ql (U) Negative Normal NEGATIVE [facility] Comment on above: Performed By: #### U AMIC #### [facility] [address] [place] [address] Dr. Silva Burnett CAST NONE SEEN Normal NONE SEEN [facility] Comment on above: Performed By: #### U AMIC #### [facility] [address] [place] [address] Dr. Silva Burnett Clarity (U) CLEAR Normal CLEAR [facility] Comment on above: Performed By: #### U AMIC #### [facility] [address] [place] [address] Dr. Silva Burnett Color (U) YELLOW Normal YELLOW [facility] Comment on above: Performed By: #### U AMIC #### [facility] [address] [address] [address] Silva Burnett Crystals LM Nom (Urine sed) NONE SEEN Normal NONE SEEN [facility] Comment on above: Performed By: #### U AMIC #### [facility] [address] [address] [address] Silva Burnett Epithelial cells LM Ql (Urine sed) NONE SEEN Normal NONE SEEN /RARE [facility] Comment on above: Performed By: #### U AMIC #### [facility] [address] [place] [address] Dr. Silva Burnett Glucose Ql (U) Negative Normal NEGATIVE [facility] Comment on above: Performed By: #### U AMIC #### [facility] [address] [place] [address] Dr. Silva Burnett Hemoglobin Ql (U) MODERATE Abnormal NEGATIVE The [facility] Comment on above: Performed By: #### U AMIC #### [facility] [address] [place] [address] Dr. Silva Burnett Ketones Ql (U) Negative Normal NEGATIVE [facility] Comment on above: Performed By: #### U AMIC #### [facility] [address] [address] [address] Silva Burnett LEUKOCYTES Negative Normal NEGATIVE [facility] Comment on above: Performed By: #### U AMIC #### [facility] [address] [place] [address] Dr. Silva Burnett MUCOUS NONE SEEN Normal NONE SEEN [facility] Comment on above: Performed By: #### U AMIC #### [facility] [address] [place] [address] Dr. Silva Burnett Nitrite Ql (U) Negative Normal NEGATIVE [facility] Comment on above: Performed By: #### U AMIC #### [facility] [address] [address] [address] Silva Burnett pH (U) 6.0 [pH] Normal 5-9 [facility] Comment on above: Performed By: #### U AMIC #### [facility] [address] [address] [address] Silva Burnett RBC 0-2 Normal 0-2 [facility] Comment on above: Performed By: #### U AMIC #### [facility] [address] [address] [address] Silva Burnett SPEC GRAVITY 1.025 Normal 1.005-<=1.02 5 [facility] Comment on above: Performed By: #### U AMIC #### [facility] [address] [place] [address] Dr. Silva Burnett UA PROTEIN 30 mg/dl Abnormal NEGATIVE/ TRACE [facility] Comment on above: Performed By: #### U AMIC #### [facility] [address] [place] [address] Dr. Silva Burnett Urobilinogen Qn (U) 1.0 {Zaina'U}/dL Normal 0.2 - 1. 0 [facility] Comment on above: Performed By: #### U AMIC #### [facility] [address] [place] [address] Dr. Silva Burnett WBC NONE SEEN Normal NONE SEEN [facility] Comment on above: Performed By: #### U AMIC #### [facility] [address] [place] [address] Dr. Silva Burnett ICD REMOTE CHECKon 2 AV Delay Adaptive Paced Minimum (ms) 200 ms [facility] AV Delay Adaptive Sensed Minimum (ms) 170 ms [facility] Bj RA Pacing Amplitude (volts) 2 V [facility] Bj RA Pacing Polarity BI [facility] Bj RA Pacing Pulse Width (ms) 0.5 ms [facility] Bj RA Sensing Amplitude (mvolts) 0.25 mV [facility] Bj RA Sensing Polarity BI [facility] Bj RV Pacing Amplitude (volts) 2 V [facility] Bj RV Pacing Polarity BI [facility] Bj RV Pacing Pulse Width (ms) 0.5 ms [facility] Bj RV Sensing Amplitude (mvolts) 0.3 mV [facility] Bj RV Sensing Polarity BI [facility] Detection Configuration (Vent) 2 - Zone [facility] FastVT_Detection Interval 250 ms [facility] FastVT_Therapy Configuration 1 ATP(s) + 8 Shock(s) [facility] ICD FastVT DetectionStatus ENABLED [facility] ICD-AMS EPISODES 170 {beats}/min [facility] ICD-ATP Episodes (Vent) 0 [facility] ICD-ATRIALFIBRILLAT ION 21 [facility] ICD-ATRIALTACHYCARD IA 21 [facility] ICD-ATRIALTACHYCARD IA 6 [facility] ICD-Device Mfg BSX [facility] ICD-Fast Ventricular Tachycardia 6 [facility] ICD-LEADIMPEDANCEAT RIAL 709 ohm [facility] ICD-Percent Pacing (Atrial) 5 % [facility] ICD-Percent Pacing (Vent) 1 % [facility] ICD-Shocks Aborted (Vent) 0 [facility] [id number] D 0 [facility] ICD-SHOCKSABORTED 0 [facility] ICD-SHOCKSDELIVERED VENTRICULAR 0 [facility] ICD-Ventricular Fibrillation 0 [facility] Lead Impedance (RV) 416 ohm [facility] Lead Impedance High Voltage 47 ohm [facility] Lead1 Mfg BSX [facility] Lead2 Mfg BSX [facility] Location RV [facility] Location RA [facility] Lower Rate (bpm) 50 {beats}/min [facility] Max Sensor Rate (bpm) 130 {beats}/min [facility] MDT_PROG_TACHY_ZONE _DETECTIONS_STATUS ENABLED [facility] Model D142 INOGEN [facility] Model [address]75 [place] 4-Front [facility] Model 7741 Ingevity MRI [facility] Pacing Mode DDDR [facility] Serial Number [id number] [facility] Serial Number [id number] [facility] Serial Number [id number] [facility] Test Charge Energy 23 J [facility] Test Charge Time 10.1 s [facility] Therapy Status (Vent) Enabled [facility] Thresh RA Capture Amplitude (volts) 0.6 V [facility] Thresh RA Capture Duration (ms) 0.5 ms [facility] Thresh RV Capture Amplitude (VOLTS) 0.4 V [facility] Thresh RV Capture Duration (MS) 0.5 ms [facility] Tracking Rate (bpm) 130 {beats}/min [facility] VF Zone Detection Interval 250 ms [facility] VF Zone Therapy Configuration 1 ATP(s) + 8 Shock(s) [facility] No Panel Informationon 05-08 BLANK _ [facility] ICD-ATRIALTACHYCARD IA 0 [facility] ICD-Fast Ventricular Tachycardia 0 [facility] Implant Date 03/24/2019 [facility] ICD REMOTE CHECKon 2 AV Delay Adaptive Paced Minimum (ms) 200 ms [facility] AV Delay Adaptive Sensed Minimum (ms) 170 ms [facility] Bj RA Pacing Amplitude (volts) 2 V [facility] Bj RA Pacing Polarity BI [facility] Bj RA Pacing Pulse Width (ms) 0.5 ms [facility] Bj RA Sensing Amplitude (mvolts) 0.25 mV [facility] Bj RA Sensing Polarity BI [facility] Bj RV Pacing Amplitude (volts) 2 V [facility] Bj RV Pacing Polarity BI [facility] Bj RV Pacing Pulse Width (ms) 0.5 ms [facility] Bj RV Sensing Amplitude (mvolts) 0.3 mV [facility] Bj RV Sensing Polarity BI [facility] Detection Configuration (Vent) 2 - Zone [facility] FastVT_Detection Interval 250 ms [facility] FastVT_Therapy Configuration 1 ATP(s) + 8 Shock(s) [facility] ICD FastVT DetectionStatus ENABLED [facility] ICD-AMS EPISODES 170 {beats}/min [facility] ICD-ATP Episodes (Vent) 0 [facility] ICD-ATRIALFIBRILLAT ION 19 [facility] ICD-ATRIALTACHYCARD IA 19 [facility] ICD-ATRIALTACHYCARD IA 4 [facility] ICD-Device Mfg BSX [facility] ICD-Fast Ventricular Tachycardia 4 [facility] ICD-LEADIMPEDANCEAT RIAL 734 ohm [facility] ICD-Percent Pacing (Atrial) 6 % [facility] ICD-Percent Pacing (Vent) 1 % [facility] ICD-Shocks Aborted (Vent) 0 [facility] [id number] D 0 [facility] ICD-SHOCKSABORTED 0 [facility] ICD-SHOCKSDELIVERED VENTRICULAR 0 [facility] ICD-Ventricular Fibrillation 0 [facility] Lead Impedance (RV) 427 ohm [facility] Lead Impedance High Voltage 48 ohm [facility] Lead1 Mfg BSX [facility] Lead2 Mfg BSX [facility] Location RV [facility] Location RA [facility] Lower Rate (bpm) 50 {beats}/min [facility] Max Sensor Rate (bpm) 130 {beats}/min [facility] MDT_PROG_TACHY_ZONE _DETECTIONS_STATUS ENABLED [facility] Model D142 INOGEN [facility] Model 0675 [place] 4-Front [facility] Model 7741 Ingevity MRI [facility] Pacing Mode DDDR [facility] Serial Number [id number] [facility] Serial Number [id number] [facility] Serial Number [id number] [facility] Test Charge Energy 23 J [facility] Test Charge Time 10 s [facility] Therapy Status (Vent) Enabled [facility] Thresh RA Capture Amplitude (volts) 0.6 V [facility] Thresh RA Capture Duration (ms) 0.5 ms [facility] Thresh RV Capture Amplitude (VOLTS) 0.4 V [facility] Thresh RV Capture Duration (MS) 0.5 ms [facility] Tracking Rate (bpm) 130 {beats}/min [facility] VF Zone Detection Interval 250 ms [facility] VF Zone Therapy Configuration 1 ATP(s) + 8 Shock(s) [facility] No Panel Informationon 02-06 BLANK _ [facility] ICD-ATRIALTACHYCARD IA 0 [facility] ICD-Fast Ventricular Tachycardia 0 [facility] Implant Date 03/24/2019 [facility] CT Chest W contrast Pilo IMPRESSION: 1. [...] any questions regarding this interpretation, please call [phone]. If you are unable to reach us at the number above, please feel free to contact [facility] eRadiology at [phone]. DIVISION OF RADIOLOGY * * *Final Report* * * DATE OF EXAM: Sep 13 2021 3:08PM [facility] 0539 - CT CHEST W IVCON / [...] nodules measuring less than 0.5 cm, with outside sales account representative examples detailed as follows on series [...] No abnormality in the imaged upper abdomen. Dispatcher Maintenance (topogram) images: No additional findings. DIVISION OF RADIOLOGY Provider, [facility] - 09/13/2021 * * *Final Report* * * DATE OF EXAM: Sep 13 2021 3:08PM [facility] 0539 - CT CHEST W IVCON / [...] nodules measuring less than 0.5 cm, with outside sales account representative examples detailed as follows on series [...] No abnormality in the imaged upper abdomen. Dispatcher Maintenance (topogram) images: No additional findings. IMPRESSION IMPRESSION: [...] any questions regarding this interpretation, please call [phone]. If you are unable to reach us at the number above, please feel free to contact [facility] eRadiology at [phone]. [facility] Radiology Study observation (narrative) [facility] CT Chest W contrast IVOrdere d By: Ccf Provider on 09-13-2021 [facility] C [place] 12-23-2018 Wound Culture Microbiology PROCEDURE: [...] Locations R1: This test was performed at: [facility], [address] [place] [address], [id number] , [facility] Comment on above: Performed By: #### [id number] #### [facility] [address] [place] [id number] Coding Summary.on 12-23-2018 Coding Summary. CODING DATE: 019 [facility] STATUS: Home (Routine DC) PAYOR: Medicare [...] Tim CphT Date Saved: 12/23/2018 01:[address] [facility] Vital Signs Date Time Vital Sign Value Performing Clinician Facility 03-25-2025 15:18-0400 Body height 182.9 cm Ayana ALCAZARM Work Phone: [facility] 03-25-2025 15:18-0400 Body mass index (BMI) [Ratio] 20.34 kg/m2 Ayana Evans DPM Work Phone: [facility] 03-25-2025 15:18-0400 Body weight 68.04 kg Ayana ALCAZARM Work Phone: [facility] 03-01-2025 14:20-0400 Body height 182.9 cm Nj Wei MD Work Phone: [facility] 03-01-2025 14:20-0400 Body mass index (BMI) [Ratio] 23.6 kg/m2 Nj Wei MD Work Phone: [facility] 03-01-2025 14:20-0400 Body weight 78.93 kg Nj Wei MD Work Phone: [facility] 03-01-2025 14:20-0400 Diastolic blood pressure 76 mm[Hg] Nj Wei MD Work Phone: [facility] 03-01-2025 14:20-0400 Heart rate 106 /min Nj Wei MD Work Phone: [facility] 03-01-2025 14:20-0400 Systolic blood pressure 105 mm[Hg] Nj Wei MD Work Phone: [facility] 12-03-2024 10:53-0400 Body height 182.9 cm Ayana ALCAZARM Work Phone: [facility] 03-20-2025 10:53-0400 Body mass index (BMI) [Ratio] 21.7 kg/m2 Ayana Adria DPM Work Phone: [facility] 12-03-2024 10:53-0400 Body weight 72.58 kg Ayana Adria DPM Work Phone: [facility] 08-19-2024 13:26-0500 Body height 182.9 cm Carmela Fernandes MD Work Phone: [facility] 08-19-2024 13:26-0500 Body mass index (BMI) [Ratio] 23.06 kg/m2 Carmela Fernandes MD Work Phone: [facility] 08-19-2024 13:26-0500 Body weight 77.11 kg Carmela Fernandes MD Work Phone: [facility] 08-19-2024 13:26-0500 Diastolic blood pressure 56 mm[Hg] Carmela Fernandes MD Work Phone: [facility] 08-19-2024 13:26-0500 Heart rate 78 /min Carmela Fernandes MD Work Phone: [facility] 08-19-2024 13:26-0500 SaO2% (BldA) [Mass fraction] 97 % Carmela Fernandes MD Work Phone: [facility] Comment on above: 08-19-2024 13:26-0500 Systolic blood pressure 94 mm[Hg] Carmela Fernandes MD Work Phone: [facility] 08-19-2024 10:19-0500 Body height 182.9 cm Nj Wei MD Work Phone: [facility] 08-19-2024 10:19-0500 Body mass index (BMI) [Ratio] 23.06 kg/m2 Nj Wei MD Work Phone: [facility] 08-19-2024 10:19-0500 Body weight 77.11 kg Nj Wei MD Work Phone: [facility] 08-19-2024 10:19-0500 Diastolic blood pressure 56 mm[Hg] Nj Wei MD Work Phone: [facility] 08-19-2024 10:19-0500 Heart rate 80 /min Nj Wei MD Work Phone: [facility] 08-19-2024 10:19-0500 Systolic blood pressure 108 mm[Hg] Nj Wei MD Work Phone: [facility] 03-31-2024 13:09-0400 Body mass index (BMI) [Ratio] 21.44 kg/m2 ARACELI Andrade MD Work Phone: [facility] 03-31-2024 13:09-0400 Body temperature 97.3 [degF] ARACELI Andrade MD Work Phone: [facility] 03-31-2024 13:09-0400 Body weight 79.9 kg ARACELI Andrade MD Work Phone: [facility] 03-31-2024 13:09-0400 Diastolic blood pressure 70 mm[Hg] ARACELI Andrade MD Work Phone: [facility] 03-31-2024 13:09-0400 Heart rate 67 /min ARACELI Andrade MD Work Phone: [facility] 03-31-2024 13:09-0400 Respiratory rate 16 /min ARACELI Andrade MD Work Phone: [facility] 03-31-2024 13:09-0400 SaO2% (BldA) [Mass fraction] 97 % ARACELI Andrade MD Work Phone: [facility] 03-31-2024 13:09-0400 Systolic blood pressure 115 mm[Hg] ARACELI Andrade MD Work Phone: [facility] 03-30-2024 14:56-0400 Body height 193 cm Efren Brady MD Work Phone: [facility] 03-30-2024 14:56-0400 Body mass index (BMI) [Ratio] 20.69 kg/m2 Efren Brady MD Work Phone: [facility] 03-30-2024 14:56-0400 Body weight 77.11 kg Efren Brady MD Work Phone: [facility] 03-30-2024 14:56-0400 Diastolic blood pressure 69 mm[Hg] Efren Brady MD Work Phone: [facility] 03-30-2024 14:56-0400 Heart rate 66 /min Efren Brady MD Work Phone: [facility] 03-30-2024 14:56-0400 Systolic blood pressure 125 mm[Hg] Efren Brady MD Work Phone: [facility] 01-10-2024 10:58-0400 Diastolic blood pressure 78 mm[Hg] ARACELI Fernandes MD Work Phone: [facility] 01-10-2024 10:58-0400 Systolic blood pressure 122 mm[Hg] ARACELI Fernandes MD Work Phone: [facility] 01-10-2024 10:55-0400 Body height 182.9 cm ARACELI Fernandes MD Work Phone: [facility] 01-10-2024 10:55-0400 Body mass index (BMI) [Ratio] 22.51 kg/m2 ARACELI Fernandes MD Work Phone: [facility] 01-10-2024 10:55-0400 Body weight 75.3 kg ARACELI Fernandes MD Work Phone: [facility] 01-10-2024 10:55-0400 Heart rate 88 /min ARACELI Fernandes MD Work Phone: [facility] 01-10-2024 10:55-0400 Respiratory rate 14 /min ARACELI Fernandes MD Work Phone: [facility] 01-10-2024 10:55-0400 SaO2% (BldA) [Mass fraction] 97 % ARACELI Fernandes MD Work Phone: [facility] 12-26-2023 12:00-0400 Body height 182.9 cm Efren Brady MD Work Phone: [facility] 12-26-2023 12:00-0400 Body weight 77.11 kg Efren Brady MD Work Phone: [facility] 12-26-2023 12:00-0400 Diastolic blood pressure 64 mm[Hg] Efren Brady MD Work Phone: [facility] 12-26-2023 12:00-0400 Heart rate 78 /min Efren Brady MD Work Phone: [facility] 12-26-2023 12:00-0400 Respiratory rate 12 /min Efren rBady MD Work Phone: [facility] 12-26-2023 12:00-0400 SaO2% (BldA) [Mass fraction] 97 % Efren Brady MD Work Phone: [facility] 12-26-2023 12:00-0400 Systolic blood pressure 128 mm[Hg] Efren Brady MD Work Phone: [facility] 12-12-2023 13:38-0400 Body height 182.9 cm Carmelina Mayor VAN DRIVER.COMPUTER APPLICATIONS INSTRUCTOR Work Phone: [facility] 12-12-2023 13:38-0400 Body weight 75.3 kg Carmelina Mayor VAN DRIVER.COMPUTER APPLICATIONS INSTRUCTOR Work Phone: [facility] 12-12-2023 13:38-0400 Diastolic blood pressure 76 mm[Hg] Carmelina Mayor VAN DRIVER.COMPUTER APPLICATIONS INSTRUCTOR Work Phone: [facility] 12-12-2023 13:38-0400 Heart rate 81 /min Carmelina Mayor VAN DRIVER.COMPUTER APPLICATIONS INSTRUCTOR Work Phone: [facility] 12-12-2023 13:38-0400 Respiratory rate 18 /min Carmelina Mayor VAN DRIVER.COMPUTER APPLICATIONS INSTRUCTOR Work Phone: [facility] 12-12-2023 13:38-0400 SaO2% (BldA) [Mass fraction] 97 % Carmelina Mayor VAN DRIVER.COMPUTER APPLICATIONS INSTRUCTOR Work Phone: [facility] 12-12-2023 13:38-0400 Systolic blood pressure 117 mm[Hg] Carmelina Ramos APRNTitusCOMPUTER APPLICATIONS INSTRUCTOR Work Phone: [facility] 10-29-2023 11:24-0500 Body height 182.9 cm Virgil Carrillo MD Work Phone: [facility] 10-29-2023 11:24-0500 Body weight 80.29 kg Virgil Carrillo MD Work Phone: [facility] 10-29-2023 11:24-0500 Diastolic blood pressure 62 mm[Hg] Virgil Carrillo MD Work Phone: [facility] 10-29-2023 11:24-0500 Heart rate 72 /min Virgil Carrillo MD Work Phone: [facility] 10-29-2023 11:24-0500 Respiratory rate 12 /min Virgil Carrillo MD Work Phone: [facility] 10-29-2023 11:24-0500 SaO2% (BldA) [Mass fraction] 98 % Virgil Carrillo MD Work Phone: [facility] 10-29-2023 11:24-0500 Systolic blood pressure 108 mm[Hg] Virgil Carrillo MD Work Phone: [facility] 04-26-2023 15:08-0400 Body height 182.9 cm Zahra Pierre MD Work Phone: [facility] 04-26-2023 15:08-0400 Body weight 83.92 kg Zahra Pierre MD Work Phone: [facility] 04-26-2023 15:08-0400 Diastolic blood pressure 62 mm[Hg] Zahra Pierre MD Work Phone: [facility] 04-26-2023 15:08-0400 Heart rate 73 /min Zahra Pierre MD Work Phone: [facility] 04-26-2023 15:08-0400 Respiratory rate 12 /min Zahra Pierre MD Work Phone: [facility] 04-26-2023 15:08-0400 SaO2% (BldA) [Mass fraction] 98 % Zahra Pierre MD Work Phone: [facility] 04-26-2023 15:08-0400 Systolic blood pressure 116 mm[Hg] Zahra Pierre MD Work Phone: [facility] 10-25-2022 15:44-0500 Body height 182.9 cm Zahra Pierre MD Work Phone: [facility] 10-25-2022 15:44-0500 Body weight 83.92 kg Zahra Pierre MD Work Phone: [facility] 10-25-2022 15:44-0500 Diastolic blood pressure 66 mm[Hg] Zahra Pierre MD Work Phone: [facility] 10-25-2022 15:44-0500 Heart rate 74 /min Zahra Pierre MD Work Phone: [facility] 10-25-2022 15:44-0500 SaO2% (BldA) [Mass fraction] 98 % Zahra Pierre MD Work Phone: [facility] 10-25-2022 15:44-0500 Systolic blood pressure 116 mm[Hg] Zahra Pierre MD Work Phone: [facility] 10-02-2022 13:10-0500 Body temperature 96.69 [degF] ARACELI Andrade MD Work Phone: [facility] 10-02-2022 13:10-0500 Body weight 86.18 kg ARACELI Andrade MD Work Phone: [facility] 10-02-2022 13:10-0500 Diastolic blood pressure 71 mm[Hg] ARACELI Andrade MD Work Phone: [facility] 10-02-2022 13:10-0500 Heart rate 66 /min ARACELI Andrade MD Work Phone: [facility] 10-02-2022 13:10-0500 Respiratory rate 18 /min ARACELI Andrade MD Work Phone: [facility] 10-02-2022 13:10-0500 SaO2% (BldA) [Mass fraction] 98 % ARACELI Andrade MD Work Phone: [facility] 10-02-2022 13:10-0500 Systolic blood pressure 113 mm[Hg] ARACELI Andrade MD Work Phone: [facility] 09-03-2022 11:35-0500 Body height 182.9 cm John Jefferson MD Work Phone: [facility] 09-03-2022 11:35-0500 Body temperature 97.9 [degF] John Jefferson MD Work Phone: [facility] 09-03-2022 11:35-0500 Body weight 84.01 kg John Jefferson MD Work Phone: [facility] 09-03-2022 11:35-0500 Diastolic blood pressure 78 mm[Hg] John Jefferson MD Work Phone: [facility] 09-03-2022 11:35-0500 Heart rate 82 /min John Jefferson MD Work Phone: [facility] 09-03-2022 11:35-0500 Respiratory rate 18 /min John Jefferson MD Work Phone: [facility] 09-03-2022 11:35-0500 SaO2% (BldA) [Mass fraction] 98 % John Jefferson MD Work Phone: [facility] 09-03-2022 11:35-0500 Systolic blood pressure 133 mm[Hg] John Jefferson MD Work Phone: [facility] 06-06-2022 14:32-0400 Body height 182.9 cm Zahra Pierre MD Work Phone: [facility] 06-06-2022 14:32-0400 Body weight 76.66 kg Zahra Pierre MD Work Phone: [facility] 06-06-2022 14:32-0400 Diastolic blood pressure 63 mm[Hg] Zahra Pierre MD Work Phone: [facility] 06-06-2022 14:32-0400 Heart rate 71 /min Zahra Pierre MD Work Phone: [facility] 06-06-2022 14:32-0400 SaO2% (BldA) [Mass fraction] 97 % Zahra Pierre MD Work Phone: [facility] 06-06-2022 14:32-0400 Systolic blood pressure 101 mm[Hg] Zahra Pierre MD Work Phone: [facility] 12-11-2021 13:58-0400 Body temperature 97.11 [degF] ARACELI Andrade MD Work Phone: [facility] 12-11-2021 13:58-0400 Body weight 82.1 kg ARACELI Andrade MD Work Phone: [facility] 12-11-2021 13:58-0400 Diastolic blood pressure 78 mm[Hg] ARACELI Andrade MD Work Phone: [facility] 12-11-2021 13:58-0400 Heart rate 80 /min ARACELI Andrade MD Work Phone: [facility] 12-11-2021 13:58-0400 Respiratory rate 18 /min ARACELI Andrade MD Work Phone: [facility] 12-11-2021 13:58-0400 SaO2% (BldA) [Mass fraction] 99 % ARACELI Andrade MD Work Phone: [facility] 12-11-2021 13:58-0400 Systolic blood pressure 130 mm[Hg] ARACELI Andrade MD Work Phone: [facility] Encounters Encounter Date Encounter Type Care Provider Facility Start: 04-26-2025 End: 04-26-2025 ambulatory [facility] Start: 04-13-2025 End: 04-13-2025 ambulatory Allyn Katz RN [facility] Start: 04-13-2025 End: 04-13-2025 Patient encounter procedure Allyn Katz RN [facility] Start: 04-08-2025 End: 04-08-20[facility] Start: 03-25-2025 End: 03-25-2025 Patient encounter procedure Ayana Evans DPM Work Phone: [facility] Comment on above: Dystrophic nail (Ami sandeep Dx); Pain around toenail, right foot; Pain around toenail, left foot; Peripheral arterial disease Start: 03-25-2025 End: 03-25-2025 ambulatory AYANA EVANS Not Available Start: 03-25-2025 End: 03-25-2025 Bamboo flowsheet Ayana Evans DPM Work Phone: [facility] Start: 03-25-2025 End: 03-25-2025 Bamboo flowsheet Ayana Evans DPM Work Phone: [facility] Start: 03-22-2025 End: 03-31-2025 Telephone encounter G Denilson Andrade MD Work Phone: Radiation Oncology Comment on above: Patient Update; Futu re Appointment; Lab Orders Start: 03-21-2025 End: 03-21-2025 Emergency department patient visit ZI AMBRIZ [facility] Start: 03-17-2025 End: 03-18-[facility] Start: 03-15-2025 End: 03-15-2025 Orders Only Nj Wei MD Work Phone: Cardiology Comment on above: SOB (shortness of br eath) (Primary Dx) Start: 03-08-2025 Evaluation and management of inpatient PRISCILLA PENDLETON [facility] Start: 03-08-2025 Evaluation and management of inpatient CHELSIE BECERRA [facility] Start: 03-07-2025 Evaluation and management of inpatient BRIA MEJIA [facility] Start: 03-06-2025 Evaluation and management of inpatient TROY CHANTELL [facility] Start: 03-06-2025 Evaluation and management of inpatient TROY ABDUL [facility] Start: 03-05-2025 Evaluation and management of inpatient JOHN CONTRERAS [facility] Start: 03-05-2025 End: 03-16-2025 Evaluation and management of inpatient SAMM THOMPSON [facility] Start: 03-04-2025 End: 03-04-2025 ambulatory Claudia Rodrigues APRN.COMPUTER APPLICATIONS INSTRUCTOR Work Phone: [facility] Comment on above: Amaurosis fugax (Ami sandeep Dx); Carotid stenosis, asymptomatic, bilateral; Atrial fibrillation, unspecified type (HCC); Mixed hyperlipidemia; Essential hypertension Start: 03-04-2025 End: 03-04-2025 Telemedicine consultation with patient Claudia Rodrigues APRN.COMPUTER APPLICATIONS INSTRUCTOR Work Phone: [facility] Start: 03-03-2025 End: 03-03-2025 ambulatory [place] WEI Facility:[facility] Start: 03-02-2025 End: 03-02-2025 Telephone encounter Nj Wei MD Work Phone: Cardiology Comment on above: Schedule Surgery (EP S-DCC) Start: 03-01-2025 End: 03-01-2025 ambulatory SAMM THOMPSON Facility:[facility] Start: 03-01-2025 End: 03-01-2025 Patient encounter procedure Nj Wei MD Work Phone: Cardiology Comment on above: 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 (Primary Dx); 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; Acute on chronic systolic congestive heart failure (HCC); S/P CABG (coronary artery bypass graft); Cardiomyopathy, ischemic; Frequent PVCs; VT (ventricular tachycardia) (HCC); ICD (implantable cardioverter-defibrillator) discharge; Type 2 diabetes mellitus with diabetic chronic kidney disease, unspecified CKD stage, unspecified whether rn long term care insulin use (HCC); Stage 3b chronic kidney disease (HCC); Paroxysmal atrial fibrillation (HCC); rn long term care (current) use of anticoagulants Start: 03-01-2025 End: 03-01-2025 ambulatory [facility] Facility:[facility] Start: 03-01-2025 End: 03-01-2025 Subsequent hospital visit by physician [facility] Work Phone: Cardiology Comment on above: Pacemaker reprogramm ing/check [Z45.018] Start: 03-01-2025 End: 03-01-2025 ambulatory [facility] Facility:[facility] Start: 02-23-2025 End: 04-12-2025 Telephone encounter Carmela Fernandes MD Work Phone: Cardiology Comment on above: Outside Labs-[facility] Ord ered (Outside labs dated 02/22/25 from Mitzy Rubin, scanned into [employer] for review) Start: 01-26-2025 End: 01-26-2025 Telephone encounter Carmela Fernandes MD Work Phone: Cardiology Start: 01-11-2025 End: 01-11-2025 ambulatory [facility] Start: 12-21-2024 End: 12-21-2024 ambulatory Carmela Fernandes MD Work Phone: Cardiology Comment on above: Chronic systolic (co ngestive) heart failure (HCC) (Primary Dx); End stage heart failure (HCC) [I50.84] Start: 12-21-2024 End: 12-21-2024 Telemedicine consultation with patient Carmela Fernandes MD Work Phone: Cardiology Start: 12-15-2024 End: 02-14-2025 Follow-up encounter Carmela Fernandes MD Work Phone: Cardiology Start: 12-08-2024 End: 12-08-2024 ambulatory CARMELA FERNANDES Facility:[facility] Start: 12-03-2024 End: 12-03-2024 Bamboo flowsconstantin Evans DPPaulina Work Phone: [facility] Start: 12-03-2024 End: 12-03-2024 Bamboo flowsheet Ayaan Evans DPPaulina Work Phone: [facility] Start: 12-03-2024 End: 12-03-2024 Telephone encounter Nj Wei MD Work Phone: Cardiology Comment on above: Medication Question Start: 12-03-2024 End: 12-03-2024 ambulatory AYANA EVANS Not Available Start: 12-03-2024 End: 12-03-2024 Office outpatient new 30 minutes Ayana Evans DPM Work Phone: [facility] Comment on above: Dystrophic nail (Ami sandeep Dx); Pain around toenail, right foot; Pain around toenail, left foot; Peripheral arterial disease ([facility]/HCC) Start: 11-18-2024 End: 11-18-2024 ambulatory DIRK K RAJ [facility] Start: 10-17-2024 End: 11-04-2024 Subsequent hospital visit by physician Dirk Sanders DO Work Phone: [facility] Start: 10-16-2024 Evaluation and management of inpatient [facility] Start: 10-14-2024 Evaluation and management of inpatient [facility] Start: 10-08-2024 End: 10-08-2024 Telephone encounter Nj Wei MD Work Phone: Cardiology Comment on above: Medication Problem Start: 10-07-2024 End: 10-07-2024 Telephone encounter Nj Wei MD Work Phone: Cardiology Comment on above: Patient Question Start: 10-02-2024 Evaluation and management of inpatient [facility] Start: 09-30-2024 Evaluation and management of inpatient [facility] Start: 09-29-2024 Evaluation and management of inpatient [facility] Start: 09-29-2024 End: 09-29-2024 ambulatory Carmela Fernandes MD Work Phone: Cardiology Comment on above: Medication questions , possible Norovirus Start: 09-29-2024 Emergency department patient visit JOSÉ MIGUEL HOWARD [facility] Start: 09-29-2024 End: 10-17-2024 Evaluation and management of inpatient HARI IVANIA [facility] Start: 09-22-2024 End: 09-22-2024 Evaluation and management of inpatient [place] DEVEN Facility:[facility] Start: 09-22-2024 End: 09-22-2024 Evaluation and management of inpatient [place] DEVEN Facility:[facility] Start: 09-21-2024 End: 09-21-2024 Evaluation and management of inpatient Fuentes Wheat DO Work Phone: Cardiology Start: 09-18-2024 End: 09-18-2024 Evaluation and management of inpatient [facility] Work Phone: Cardiology Start: 09-17-2024 End: 09-25-2024 Evaluation and management of inpatient SAMM THOMPSON Facility:[facility] Start: 09-17-2024 End: 09-17-2024 Telephone encounter Alta Dempsey RN Cardiology Comment on above: Ventricular Tachycar ben Start: 09-17-2024 ambulatory SAMM THOMPSON [facility] Start: 09-10-2024 End: 09-10-2024 ambulatory SAMM THOMPSON Facility:[facility] Start: 09-10-2024 End: 09-11-2024 Telephone encounter Carmela Fernandes MD Work Phone: Cardiology Comment on above: Advice Only Start: 09-07-2024 End: 09-07-2024 Telephone encounter Nj Wei MD Work Phone: Cardiology Comment on above: Patient Update Start: 09-03-2024 End: 09-03-2024 Telephone encounter Nj Wei MD Work Phone: Cardiology Start: 08-31-2024 End: 08-31-2024 ambulatory SAMM THOMPSON Facility:[facility] Start: 08-28-2024 End: 08-28-2024 Telephone encounter Nj [...] 08-19-2024 End: 08-19-2024 Patient encounter procedure Nj Wie MD Work Phone: Cardiology Comment on above: Frequent PVCs (Prima ry Dx); Heart failure, acute systolic (HCC); 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); Carotid stenosis, 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, left; 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; Acute on chronic systolic congestive heart failure (HCC); S/P CABG (coronary artery bypass graft); Paroxysmal atrial fibrillation (HCC) Amaurosis fugax (Ami sandeep Dx); Heart failure, acute systolic (HCC); Acute on chronic systolic congestive heart failure (HCC); PVD (peripheral vascular disease) (HCC); S/P CABG (coronary artery bypass graft) Start: 08-19-2024 ambulatory [place] WEI Facili ty:[facility] Start: 08-19-2024 End: 08-19-2024 Subsequent hospital visit by physician [facility] Work Phone: Cardiology Comment on above: Pacemaker reprogramm ing/check [Z45.018] Start: 08-19-2024 End: 08-19-2024 ambulatory [facility] Work Phone: Cardiology Comment on above: Holter Monitor Appli cation (12-lead 48-HR) Start: 08-18-2024 End: 01-12-2025 Orders Only Luís Skinner APRN.CNP Work Phone: Neurology [facility] Comment on above: Carotid stenosis, sy mptomatic w/o infarct, left (Primary Dx) Counseling (New orde r is needed for the patient to return to Cardiac Rehab at [facility].) Start: 08-17-2024 End: 08-17-2024 Telephone encounter Nj Wei MD Work Phone: Cardiology Comment on above: Patient Question Start: 08-14-2024 End: 08-19-2024 Telephone encounter Levar Zacarias MD Work Phone: Cardiology Comment on above: [...] Orders Only Yovanny Gentile MD Work Phone: [facility] [id number] Comment on above: PVC (premature ventr icular contraction) (Primary Dx) Holter Monitor Appli cation (48 Hours) Start: 07-23-2024 End: 07-23-2024 Evaluation and management of inpatient [facility] Facility:[facility] Start: 07-21-2024 End: 07-26-2024 Evaluation and management of inpatient [facility] Facility:[facility] Start: 07-21-2024 End: 07-21-2024 ambulatory Carmela Fernandes MD Work Phone: Cardiology Comment on above: labs - urgent Start: 07-15-2024 ambulatory UNKNOWN PHYSICIAN [facility] Start: 07-13-2024 ambulatory UNKNOWN PHYSICIAN [facility] Start: 07-09-2024 End: 07-09-2024 ambulatory UNKNOWN PHYSICIAN [facility] Start: 07-08-2024 End: 07-08-2024 Clinical Support [facility] 45 Cardiac Rehab [facility] Start: 07-06-2024 End: 07-06-2024 ambulatory UNKNOWN PHYSICIAN [facility] Start: 07-02-2024 End: 07-02-2024 Clinical Support [facility] Card[facility] Re[facility] Start: 07-01-2024 End: 07-01-2024 Clinical Support [facility] Start: 06-29-2024 End: 06-29-2024 Clinical Support [facility] Card[facility] Start: 06-25-2024 End: 06-25-2024 ambulatory UNKNOWN PHYSICIAN [facility] Start: 06-24-2024 End: 06-24-2024 Clinical Support [facility] Cardiac [facility] Comment on above: S/P AVR (aortic valv e replacement) Start: 06-23-2024 End: 06-23-2024 ambulatory UNKNOWN PHYSICIAN [facility] Start: 06-19-2024 End: 06-19-2024 Refill Carmela Fernandes MD Work Phone: Cardiology Comment on above: Rx Refills Start: 06-15-2024 End: 06-16-2024 Refill Carmela Fernandes MD Work Phone: Cardiology Comment on above: Rx Refills Start: 06-10-2024 End: 06-10-2024 Refill Sandrine Arteaga MD Work Phone: [place] [id number] Comment on above: Refill Request Start: 06-02-2024 [...] Follow Up Start: 05-14-2024 End: 05-17-2024 ambulatory [facility] Start: 05-13-2024 End: 05-17-2024 ambulatory [facility] Start: 05-11-2024 End: 05-17-2024 ambulatory [facility] Start: 05-09-2024 End: 05-16-2024 Evaluation and management of inpatient JAMIE HEREDIA Facility:[facility] Start: 05-06-2024 End: 05-09-2024 Evaluation and management of inpatient CHERYL LEES Facility:[facility] Start: 05-06-2024 End: 05-17-2024 ambulatory EFREN BRADY Facility:[facility] Start: 05-06-2024 End: 05-08-2024 Telephone encounter Paulina Fernandes MD Work Phone: Cardiology Comment on above: Follow Up Start: 05-06-2024 End: 05-17-2024 ambulatory [facility] Start: 04-30-2024 ambulatory Allyn Katz RN [facility] Start: 04-30-2024 Patient encounter procedure Allyn Katz RN [facility] Start: 04-29-2024 ambulatory Allyn Katz RN [facility] Start: 04-29-2024 End: 04-29-2024 Patient encounter procedure Allyn Katz RN [facility] Start: 04-20-2024 End: 04-20-2024 Clinical Support [facility] Start: 04-16-2024 End: 04-16-2024 Clinical Support [facility] Start: 04-15-2024 End: 04-15-2024 Clinical Support [facility] Start: 04-13-2024 End: 04-13-2024 Clinical Support [facility] Start: 04-09-2024 End: 04-09-2024 Clinical Support [facility] Start: 04-03-2024 Telephone encounter Luís Castle sharlenezziyad SRINIVASAN Work Phone: Neurology [facility] Comment on above: Medication Problem Start: 04-01-2024 End: 04-01-2024 Telephone encounter Crys SHEEHAN Hematology/Oncology Start: 03-31-2024 End: 03-31-2024 ambulatory Paulina Fernandes MD Work Phone: Cardiology Comment on above: 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coronary bypass graft of yuhaaviatam heart without angina pectoris (Primary Dx); Chronic systolic heart failure (HCC); S/P CABG (coronary artery bypass graft); Non-rheumatic mitral regurgitation; Severe mitral regurgitation Start: 03-31-2024 End: 03-31-2024 Telemedicine consultation with patient Paulina Fernandes MD Work Phone: Cardiology Start: 03-31-2024 End: 03-31-2024 Patient encounter procedure Yung Andrade MD Work Phone: Radiation Oncology Comment on above: History of prostate cancer (Primary Dx) Start: 03-30-2024 End: 03-30-2024 Patient encounter procedure Efren Brady MD Work Phone: Cardiology Comment on above: Cardiomyopathy, isch emic (Primary Dx); S/P mitral valve clip implantation; Stage 3b chronic kidney disease (HCC) Start: 03-30-2024 Telephone encounter Efren Brady MD Work Phone: Cardiology Comment on above: Medication Assistanc e Program Start: 03-26-2024 End: 03-26-2024 Clinical Support [facility] Comment on above: Arrived Start: 03-25-2024 End: 03-25-2024 Clinical Support [facility] Comment on above: Arrived Start: 03-23-2024 End: 03-23-2024 Clinical Support [facility] Start: 03-18-2024 End: 03-18-2024 ambulatory Luís Moorenancy COMPUTER APPLICATIONS INSTRUCTOR Work Phone: Neurology [facility] Comment on above: Amaurosis fugax (Ami sandeep Dx); Carotid stenosis, 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, left; Atrial fibrillation, unspecified type (HCC); Mixed hyperlipidemia; Essential hypertension Start: 03-18-2024 End: 03-18-2024 Telemedicine consultation with patient Luís Skinner ANAND.COMPUTER APPLICATIONS INSTRUCTOR Work Phone: Neurology [facility] Start: 03-06-2024 ambulatory Gavi Childress MD Work Phone: [facility] Start: 03-02-2024 End: 03-02-2024 Evaluation and management of inpatient Susi Whitehead OD Work Phone: Ophthalmology Comment on above: Cerebrovascular acci 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) (Primary Dx); Cataract, nuclear sclerotic senile, bilateral Start: 03-02-2024 End: 03-02-2024 ambulatory ZAHRA Mata [facility] Start: 02-28-2024 Telephone encounter Neurology [facility] Comment on above: Patient Update (Pre admission ) Start: 02-27-2024 Chart abstracting Aravind Arriaga MD Work Phone: Neurosurgery Comment on above: Amaurosis fugax Start: 02-27-2024 Telephone encounter Shannon Mcnair APRN.COMPUTER APPLICATIONS INSTRUCTOR Work Phone: Cardiothoracic Comment on above: Patient Update Start: 02-17-2024 End: 02-17-2024 Evaluation and management of inpatient Isreal Rain MD Work Phone: Dentistry Comment on above: Dental caries (Prima ry Dx); Pre-operative clearance; Non-rheumatic mitral regurgitation; Severe mitral regurgitation Start: 02-17-2024 End: 02-17-2024 Preoperative state Isreal Rain MD Work Phone: [facility] Work Phone: Start: 02-17-2024 Orders Only Zuleyma Maret APR N.COMPUTER APPLICATIONS INSTRUCTOR Work Phone: Cardiology Comment on above: 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) (Primary Dx) Start: 02-14-2024 ambulatory [facility] Work Phone: Cardiology Comment on above: M-AZAEL MitraClip Genia ed Start: 02-13-2024 ambulatory Priscilla Mcleod y VAN DRIVER.COMPUTER APPLICATIONS INSTRUCTOR Work Phone: Cardiology Comment on above: TMTT Meeting 02/13 Start: 02-12-2024 ambulatory Fuentes Juarez Sumit VAN DRIVER.CLAY MIXER Work Phone: Cardiology Start: 02-12-2024 Telephone encounter Jennifer Kulwant truong VAN DRIVER.CLAY MIXER Work Phone: Cardiology Comment on above: Patient [...] Research Nurse [facility] Inter[facility] Work Phone: [facility] Start: 02-03-2024 End: 02-03-2024 Clinical Support [facility] 30 Cardiac Rehab [facility] Start: 01-30-2024 End: 01-30-2024 Nursing evaluation of patient and report Research Nurse [facility] Work Phone: Cardiology Comment on above: [id number] Empower Study (Primary Dx) Severe mitral regurg itation (Primary Dx); Examination of participant in clinical trial; SANTILLAN (dyspnea on exertion) Start: 01-30-2024 Patient encounter procedure Andrés Savage MD Work Phone: [facility] Start: 01-30-2024 End: 01-30-2024 Patient entered into trial Research [facility] Work Phone: [facility] Start: 01-29-2024 End: 01-29-2024 Clinical Support [facility] Cardiac Rehab [facility] Start: 01-28-2024 Orders Only Virgil Howell Work Phone: Cardiology Comment on above: Severe mitral regurg itation (Primary Dx); Status post implantation of mitral valve leaflet clip Start: 01-27-2024 End: 01-27-2024 Clinical Support [facility] 30 Cardiac Rehab [facility] Start: 01-23-2024 End: 01-23-2024 Clinical Support [facility] Cardiac Rehab [facility] Start: 01-22-2024 End: 01-22-2024 Clinical Support [facility] Cardiac Rehab [facility] Start: 01-20-2024 End: 01-20-2024 Clinical Support [facility] Cardiac Rehab [facility] Start: 01-16-2024 End: 01-16-2024 Clinical Support [facility] 30 Cardiac Rehab [facility] Start: 01-15-2024 End: 01-15-2024 Clinical Support [facility] Cardiac Rehab [facility] Start: 01-14-2024 Telephone [...] Research Nurse [facility] Intervention [facility] Work Phone: [facility] Start: 01-10-2024 End: 01-10-2024 Patient encounter procedure Paulina Fernandes MD Work Phone: Cardiology Comment on above: 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) (Primary Dx); Coronary artery disease involving coronary bypass graft of yuhaaviatam heart with angina pectoris (HCC); Chronic systolic heart failure (HCC); S/P CABG (coronary artery bypass graft); Chronic 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); Acute on chronic clinical systolic heart failure (HCC); Stage 3b chronic kidney disease (HCC); Ischemic cardiomyopathy; Non-ischemic cardiomyopathy (HCC); Shortness of breath; Unspecified severe protein-calorie malnutrition (HCC) Start: 01-09-2024 End: 01-09-2024 Clinical Support [facility] 30 Cardiac Rehab [facility] Start: 01-06-2024 End: 01-06-2024 Clinical Support [facility] 30 Cardiac Rehab [facility] Start: 01-02-2024 End: [...] Research Nurse [facility] Intervention [facility] Work Phone: [facility] Start: 01-02-2024 Telephone encounter Research N urse Card Intervention [facility] Work Phone: Cardiology Comment on above: Appointment; Patient Update Start: 01-01-2024 End: 01-01-2024 Nursing evaluation of patient and report Research Nurse [facility] Work Phone: Cardiology Comment on above: Study name: EMPOWER Trial IRB# [id number] (Primary Dx) Start: 01-01-2024 End: 01-01-2024 Patient entered into trial Research Nurse [facility] Work Phone: [facility] Start: 12-30-2023 End: 12-30-2023 Nursing evaluation of patient and report Research Nurse [facility] Work Phone: Cardiology Comment on above: IRB [id number] Empower A ssessment of the CARILLON Mitral Contour System in Treating Functional Mitral Regurgitation Associated with Heart Failure PI: Hussein (Primary Dx) Start: 12-30-2023 End: 12-30-2023 Patient entered into trial [facility] Nurse [facility] Work Phone: [facility] Start: 12-26-2023 ambulatory Kristina Ceja APRN.COMPUTER APPLICATIONS INSTRUCTOR Work Phone: Cardiology Comment on above: TMTT Meeting Start: 12-26-2023 End: 12-26-2023 Patient encounter procedure Efren Brady MD Work Phone: Cardiology Comment on above: Severe mitral regurg itation (Primary Dx); Cardiomyopathy, ischemic; S/P CABG (coronary artery bypass graft); Sore throat; Unspecified severe protein-calorie malnutrition (HCC) Start: 12-22-2023 Follow-up encounter Rubén Carney ba, MD Work Phone: [facility] Start: 12-22-2023 ICD Remote F/U Rubén Howell Work Phone: [facility] Department Start: 12-19-2023 End: 12-19-2023 Clinical Support [facility] Cardiac Rehab Exercise 1 [facility] Start: 12-17-2023 Telephone encounter Virgil Pacheco nd, MD Work Phone: Cardiology Comment on above: Cardiac Rehab Start: 12-12-2023 End: 12-12-2023 Patient encounter procedure Carmelina Jovana VAN DRIVER.COMPUTER APPLICATIONS INSTRUCTOR Work Phone: Cardiology Comment on above: Mitral valve insuffi ciency, unspecified etiology (Primary Dx); HFrEF (heart failure with reduced ejection fraction) (HCC); SOB (shortness of breath); Hx of CABG; 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; Essential hypertension Start: 11-26-2023 Telephone encounter Virgil Pacheco nd, MD Work Phone: Cardiology Comment on above: Patient Update Atherosclerosis of n ative coronary artery, unspecified whether angina present, unspecified whether yuhaaviatam or transplanted heart (Primary Dx) Start: 11-25-2023 Follow-up encounter Rubén Carney ba, MD Work Phone: [facility] Start: 11-25-2023 ICD Remote F/U Rubén Howell Work Phone: [facility] Department Start: 10-29-2023 End: 10-29-2023 Patient encounter procedure Virgil Carrillo MD Work Phone: Cardiology Comment on above: Chronic combined sys tolic and diastolic congestive heart failure (HCC) (Primary Dx); 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; Essential hypertension; Hx of CABG; Mixed hyperlipidemia; Systolic heart failure, unspecified HF chronicity (HCC); Type 2 diabetes mellitus with diabetic chronic kidney disease, unspecified CKD stage, unspecified whether rn long term care insulin use (HCC); PVD (peripheral vascular disease) (HCC); Atherosclerotic heart disease of yuhaaviatam coronary artery with other forms of angina [...] kidney disease, unspecified CKD stage, unspecified whether rn long term care insulin use (HCC) (Primary Dx); PVD (peripheral vascular disease) (HCC); 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) Start: 02-21-2023 Follow-up encounter Rubén Carney ba, MD Work Phone: [facility] Start: 02-21-2023 ICD Remote F/U Rubén Howell Work Phone: [facility] Department Start: 02-08-2023 End: 02-09-[address] DOCTOR CARRIZALES Facility:[facility] Start: 12-03-2022 Orders Only Zahra Pierre MD Work Phone: Cardiology Start: 11-29-2022 Patient encounter procedure John Jefferson MD Work Phone: Vascular Surg Dept Start: 11-29-2022 Telephone encounter John carrillo MD Work Phone: Vascular Surg Dept Comment on above: Surgery Cancelled Start: 11-06-2022 Follow-up encounter Rubén Carney ba, MD Work Phone: [facility] Start: 11-06-2022 ICD Remote F/U Rubén Howell Work Phone: [facility] Department Start: 10-31-2022 Telephone encounter John carrillo MD Work Phone: Vascular Surg Dept Comment on above: Appointment Start: 10-25-2022 End: 10-25-2022 Patient encounter procedure Zahra Pierre MD Work Phone: Cardiology Comment on above: 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 (Primary Dx); Heart [...] (HCC) (Primary Dx); 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 Start: 09-03-2022 End: 09-03-2022 Patient encounter procedure John Jefferson MD Work Phone: Vascular Surg Dept Comment on above: 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 (Primary Dx); Heart failure, acute systolic (HCC); Mixed hyperlipidemia; Stenosis of left carotid artery; Cerebrovascular acci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); Chronic 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); Carotid stenosis, asymptomatic, bilateral Start: 08-30-2022 End: 08-31-2022 ambulatory [facility] Facility: Start: 08-07-2022 Follow-up encounter Rubén Carney ba, MD Work Phone: [facility] Start: 08-07-2022 ICD Remote F/U Rubén Howell Work Phone: [facility] Department Start: 08-03-2022 Orders Only John Howell Work Phone: Vascular Surg Dept Comment on above: Bilateral carotid ar annalee stenosis (Primary Dx) Start: 08-01-2022 Telephone encounter Samm Thompson MD Work Phone: [address] [place] [address] Comment on above: Appointment Start: 07-30-2022 Telephone encounter Samm Thompson MD Work Phone: NOC Comment on above: Appointment Start: 07-25-2022 Telephone encounter Zahra mata MD Work Phone: Cardiology Comment on above: Received Outside Med ical Records Start: 07-23-2022 End: 07-24-2022 ambulatory [facility] Facility:[facility] Start: 07-18-2022 End: 07-19-[address] SAMM THOMPSON . Facility:[facility] Start: 06-27-2022 End: 06-28-[address] SAMM THOMPSON . Facility: Start: 06-27-2022 End: 06-28-[address] SAMM THOMPSON . Facility: Start: 06-18-2022 Encounter for preprocedural laboratory examination MALAIKA FAUST [facility] Start: 06-14-2022 End: 06-15-2022 Encounter [...] Evaluation and management of inpatient SHARON HOOKS Facility:[facility] Start: 05-16-2022 End: 05-17-2022 ambulatory SHARON HOOKS . Facility: Start: 05-14-2022 End: 05-15-[address] SAMM THOMPSON . Facility: Start: 05-08-2022 Follow-up encounter Rubén Carney ba, MD Work Phone: [facility] Start: 05-08-2022 ICD Remote F/U Rubén Howell Work Phone: [facility] Department Start: 04-26-2022 End: 04-26-2022 ambulatory Yung Andrade MD Work Phone: Radiation Oncology Comment on above: Malignant neoplasm o f prostate (HCC) (Primary Dx) Start: 04-26-2022 End: 04-26-2022 Telemedicine consultation with patient Yung Andrade MD Work Phone: [facility] Start: 02-06-2022 Follow-up encounter Rubén Carney ba, MD Work Phone: [facility] Start: 02-06-2022 ICD Remote F/U Rubén Howell Work Phone: [facility] Department Start: 01-15-2022 Orders Only Carlos Barone RN Dominick tology/Oncology Comment on above: Unspecified hypothyr oidism (Primary Dx); Hypercholesterolemia; Abnormal finding of blood chemistry, unspecified Start: 01-03-2022 Patient encounter procedure Yung Andrade MD Work Phone: [facility] Start: 01-03-2022 [...] encounter status ARACELI phillips MD Work Phone: [facility] Work Phone: Start: 04-28-2012 End: 05-01-2012 Preprocedural examination done Research Mn Work Phone: [facility] Procedures Date Procedure Procedure Detail Performing Clinician Start: 04-26-2025 Follow-up visit HARI M AQSOOD Start: 04-16-2025 Urinalysis SAMM HO Y Start: 04-08-2025 Follow-up visit HARI M AQSOOD Start: 03-17-2025 Follow-up visit HARI M AQSOOD Start: 03-01-2025 Prgrmg eval implanta ble in prsn dual lead dfb [facility] [place] Provider Start: 12-08-2024 Echocardiography HUONG THOMPSON Start: 11-04-2024 Comprehensive metabo lic panel Shankar PABLO Work Phone: Start: 11-03-2024 Comprehensive metabo lic panel Shankar PABLO Work Phone: Start: 11-02-2024 Comprehensive metabo lic panel Shankar PABLO Work Phone: Start: 11-01-2024 Comprehensive metabo lic panel Shankar PABLO Work Phone: Start: 10-31-2024 Comprehensive metabo lic panel Shankar PABLO Work Phone: Start: 10-30-2024 Us abdominal real ti me w/image limited Dirk Osminroland DO Work Phone: Start: 10-30-2024 Comprehensive metabo [...] exam ches t single view [place] Saturday BATTERY TEST ENGINEER-C Work Phone: Start: 10-23-2024 Comprehensive metabo lic [...] Work Phone: Start: 09-21-2024 Antibody screen SAMM THOMPSON Comment on above: Order Comment: Speci men Type: BLOOD SPECIMENOrdering Facility: [facility] Address: [address] [place] [address] Performed By: #### T SCR ####CC MAIN BLOOD BANKCLIA [id number] [place] [address] [place] Start: 09-18-2024 Interrog eval f2f 1/dual/welder explosion leads impltbl dfb Jazmin Cullen PA Work Phone: Start: 09-18-2024 Echocardiography DOUGLA S SHARONY Start: 09-17-2024 Antibody screen SAMM HOY Comment on above: Order Comment: Speci men Type: BLOOD SPECIMENOrdering Facility: [facility] Address: [address] [place] [address] Performed By: #### T SCR ####CC MAIN BLOOD BANKCLIA [id number] [place] [address] [place] Start: 08-19-2024 Prgrmg dev eval impl antable subq lead dfb system [facility] [facility] Provider Start: 07-23-2024 Echocardiography DOUGLA S HOY Start: 07-22-2024 Antibody screen SAMM HOY Comment on above: Order Comment: Speci men Type: BLOOD SPECIMENOrdering Facility: [facility] Address: [address] [place] [address] Performed By: #### T SCR ####CC MAIN BLOOD BANKCLIA [id number] [address] Start: 05-14-2024 Colonoscopy SAMM HO Y Start: 05-14-2024 Antibody screen SAMM HOY Comment on above: Order Comment: Speci men Type: BLOOD SPECIMENOrdering Facility: [facility] Address: [address] [place] [address] Performed By: #### T SCR ####CC MAIN BLOOD BANKIA [id number] [address] Start: 05-11-2024 Echocardiography DOUGLA S HOY Start: 05-10-2024 Antibody screen SAMM HOY Comment on above: Order Comment: Speci men Type: BLOOD SPECIMENOrdering Facility: [facility] Address: [address] [place] [address] Performed By: #### T SCR ####CC MAIN BLOOD BANKCLIA [id number] [address] [place] Start: 05-06-2024 Echocardiography DOUGLA S HOY Start: 03-02-2024 Visual field xm uni/ bi w/interp extended exam Susi Whitehead OD Work Phone: Start: 12-22-2023 ICD REMOTE CHECK Rubén Bucio MD Work Phone: Start: 11-25-2023 ICD REMOTE CHECK Rubén Bucio MD Work Phone: Start: 02-21-2023 ICD REMOTE CHECK Rubén Bucio MD Work Phone: Start: 11-06-2022 ICD REMOTE CHECK Rubén Bucio MD Work Phone: Start: 10-25-2022 Myocrd img pet prfuj welder explosion std rst&strs cncrnt ct Zahra Pierre MD Work Phone: Start: 10-25-2022 Myocrd img pet prfuj w/metab 2rtracer cncrnt ct Zahra Pierre MD Work Phone: Start: 10-25-2022 End: 10-25-2022 Gluc bld gluc mntr dev cleared fda spec home use [facility] Start: 09-12-2022 End: 09-12-2022 PSA screening [facility] Comment on above: Performed By: #### B MP, BNP #### [facility] [address] [place] [address] Dr. Silva Burnett Start: 08-07-2022 ICD REMOTE CHECK Rubén Bucio MD Work Phone: Start: 05-08-2022 ICD REMOTE CHECK Rubén Bucio MD Work Phone: Start: 02-06-2022 ICD REMOTE CHECK Rubén Bucio MD Work Phone: Start: 09-13-2021 Ct thorax w/contrast material Victro M Duval MD Work Phone: Start: 08-17-2021 Adult depression scr eening assessment [facility] Start: 06-17-2012 History of coronary artery bypass grafting S/P CABG (coronary artery bypass graft) ARACELI Andrade MD Work Phone: History of coronary artery bypass grafting Hx of CABG Virgil Carrillo MD Work Phone: History of coronary artery bypass grafting Hx of CABG Carmelina Ramos APRN.COMPUTER APPLICATIONS INSTRUCTOR Work Phone: History of coronary artery bypass [...] DTaP,Tdap and Td Vaccines (2 - Tdap) [facility] [employer] [facility] Start: 06-13-2030 DTaP/Tdap/Td vaccine (2 - Tdap) DTaP/Tdap/Td vaccine (2 - Tdap) [facility] Start: 06-13-2030 Urine microalbumin profile [facility] Start: 03-04-2026 End: 04-03-2026 US Carotid arteries - bilateral US CAROTID BILATERAL Radiology Routine Carotid stenosis, asymptomatic, bilateral Expected: 03/04/2026, Expires: 04/03/2026 [facility] Work Phone: Comment on above: Expected: 03/04/2026, Expires: Start: 10-25-2025 DIABETES SCREEN DIABETES SCREEN [facility] Start: 09-20-2025 End: 09-20-2025 Patient encounter procedure Cardiology Comment on above: Dx. 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 Start: 09-20-2025 End: 09-20-2025 ambulatory 09/20/2025 8:15 AM EST Procedure Cardiology [address] [place] [address] Dx. 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 Start: 07-07-2025 End: 07-07-2025 Patient encounter procedure 07/07/2025 1:00 PM EDT Procedure Visit [facility] [address] [place] [address] Ayana Evans DPM [address] [place] [address] [facility] Start: 06-30-2025 End: 06-30-2025 Patient encounter procedure 06/30/2025 10:00 AM EDT Office Visit Cardiology [address] [place] [address] Carmela Fernandes MD [address] [place] [address] DX: Chronic diastolic heart failure Cardiology Comment on above: DX: Chronic diastolic heart failure Start: 06-06-2025 DIABETES SCREEN DIABETES SCREEN [facility] Start: 05-17-2025 Influenza vaccination [facility] Start: 05-13-2025 End: 05-13-2025 Patient encounter procedure 05/13/2025 3:35 PM EDT Office Visit [facility] [address] [place] [phone] Krystal Turner MD [address] [place] [address] [facility] Start: 04-19-2025 DIABETES SCREEN DIABETES SCREEN [facility] Start: 04-03-2025 Hemoglobin A1c measurement HbA1C [facility] Start: 03-25-2025 End: 03-25-2025 Patient encounter procedure 03/25/2025 3:30 PM EDT Procedure Visit [facility] [address] [place] [phone] Ayana Evans DPM [address] [place], [place] [id number] Arrived [facility] Comment on above: Arrived Start: 03-23-2025 End: 06-22-2025 Prostate specific Ag [Mass/volume] in Serum or Plasma PROSTATE-SPECIFIC ANTIGEN DIAGNOSTIC Lab Routine History of prostate cancer Expected: 03/23/2025, Expires: 06/22/2025 [facility] Work Phone: Comment on above: Expected: 03/23/2025, Expires: Start: 03-18-2025 Hemoglobin A1c measurement HbA1C [facility] Start: 03-11-2025 End: 03-11-2025 Patient encounter procedure 03/11/2025 1:30 PM EDT Procedure Visit [facility] [address] [place] [phone] Ayana Evans DPM [address] [facility] [place], [place] [phone] [facility] Start: 03-03-2025 End: 03-03-2025 ambulatory 03/03/2025 2:30 PM EDT [facility] [address] [place] [address] Claudia Rodrigues APRN.COMPUTER APPLICATIONS INSTRUCTOR [address] [place] [address] virtual f/u to review carotid ultrasound (luís on leave) [facility] Comment on above: virtual f/u to review carotid ultrasound (luís on leave) Start: 03-03-2025 End: 03-03-2025 Admission to same day surgery center 03/03/2025 12:00 PM EDT - 03/03/2025 1:00 PM EDT Surgery HOSP EP Lab [address] [place] [address] Nj Wei MD [address] [place] [address] CARDI[facility]ERSION EXTERNAL ELECTIVE HOSP EP Lab Comment on above: CARDIOVERSION EXTERNAL ELECTIVE Start: 03-03-2025 End: 03-03-2025 Cardioversion elective arrhythmia external CARDIOVERSION EXTERNAL ELECTIVE Persistent atrial fibrillation (HCC) 03/03/2025 12:00 PM EDT EP LAB Start: 03-03-2025 Subsequent hospital visit by physician 03/03/2025 12:00 PM EDT Hospital Encounter HOSP EP Lab [address] [place] [address] Nj Wei MD [address] [place] [address] Persistent atrial fibrillation (HCC) [I48.19] HOSP EP Lab Comment on above: Persistent atrial fibrillation (HCC) [I4 8.19] Start: 03-03-2025 End: 03-03-2025 Patient encounter procedure Admitting Comment on above: interview dcc Start: 03-02-2025 Glaucoma screening Dilated Retinal Exam [facility] Start: 03-01-2025 End: 03-01-2025 Patient encounter procedure Cardiology Comment on above: Dx: PVC VT REGISTRY Start: 03-01-2025 End: 03-01-2025 ambulatory Cardiology Comment on above: Dx: PVC Start: 03-01-2025 End: 03-01-2025 Patient encounter procedure Cardiology Comment on above: Dx: PVC Carotid stenosis, sy mptomatic w/o infarct, left [I65.22] Start: 02-25-2025 Adult BMI Screening Adult BMI Screening [employer] Sys tem Start: 02-15-2025 Hepatitis B surface antibody level LDL Cholesterol [facility] Start: 01-15-2025 DIABETES SCREEN DIABETES SCREEN [facility] Start: 12-23-2024 End: 12-23-2024 ambulatory Cardiology Comment [...] End: 12-17-2024 ambulatory 12/17/2024 2:30 PM EDT [facility] Cardiology [address] [place], [place] [phone] Carmela Fernandes MD [address] [place] [address] chf Cardiology Comment on above: chf Start: 12-08-2024 End: 12-08-2024 Patient encounter procedure Cardiology Comment on above: Dx: Cardiomyopathy, ischemic, S/P mitral valve clip implantation, Stage 3b chronic kidney disease ( Start: 12-02-2024 End: 12-02-2024 Patient encounter procedure 12/02/2024 3:00 PM EDT Office Visit [facility] [address] [facility] [place] [address] Rubi Douglas I, MD [address] [place] [address] CKD Kidney Medicine Comment on above: CKD Start: 11-09-2024 DIABETES SCREEN DIABETES SCREEN [facility] Start: 11-09-2024 Hemoglobin A1c measurement HbA1C [facility] Start: 10-09-2024 End: 10-09-2024 Patient encounter procedure 10/09/2024 1:00 PM EST Office Visit Cardiology [address] [place] [address] Carmela Fernandes MD [address] [place] [address] HFrEF Cardiology Comment on above: HFrEF Start: 10-07-2024 End: 10-07-2024 ambulatory 10/07/2024 2:00 PM [facility] [address] [facility] [place] [address] Claudia Rodrigues APRN.COMPUTER APPLICATIONS INSTRUCTOR [address] [place] [address] virtual f/u to review carotid ultrasound (luís on leave) [facility] Comment on above: virtual f/u to review carotid ultrasound (luís on leave) Start: 10-07-2024 End: 01-06-2025 TESTOSTERONE, FREE AND TOTAL TESTOSTERONE, FREE AND TOTAL Lab Routine History of prostate cancer Expected: 10/07/2024, Expires: 01/06/2025 [facility] Comment on above: Expected: 10/07/2024, Expires: Start: 10-05-2024 End: 10-05-2024 ambulatory 10/05/2024 12:00 PM EST Results Only Cardiology [address] [place] [address] Dx: Cardiomyopathy, ischemic Cardiology Comment on above: Dx: Cardiomyopathy, ischemic Start: 10-05-2024 End: 10-05-2024 Patient encounter procedure Vascular Medicine Comment on above: DX: Carotid stenosis, symptomatic w/o in farct, left Dx: Cardiomyopathy, ischemic US Carotid Bilateral Start: 10-01-2024 End: 12-31-2024 Prostate specific Ag [Mass/volume] in Serum or Plasma PROSTATE-SPECIFIC ANTIGEN DIAGNOSTIC Lab Routine History of prostate cancer Expected: 10/01/2024, Expires: 12/31/2024 [facility] Work Phone: Comment on above: Expected: 10/01/2024, Expires: Start: 09-29-2024 End: 09-29-2024 ambulatory 09/29/2024 4:00 PM EST Results Only Cardiology [address] [place] [address] PVC Cardiology Comment on above: PVC Start: 09-29-2024 End: 09-29-2024 Patient encounter procedure Radiation Oncology Comment on above: 6 month rv PVC Start: 09-28-2024 Hepatitis B surface antibody level LDL Cholesterol [facility] Start: 09-28-2024 End: 09-28-2024 ambulatory 09/28/2024 1:45 PM EST Results Only Cardiology [address] [place] [address] Dx: Cardiomyopathy, ischemic Cardiology Comment on above: Dx: Cardiomyopathy, ischemic Start: 09-28-2024 End: 09-28-2024 Patient encounter procedure Cardiology Comment on above: Dx: Cardiomyopathy, ischemic Start: 09-22-2024 End: 09-22-2024 Patient encounter procedure 09/22/2024 1:15 PM EST Office Visit [facility] [address] [place] [address] [place] [address] lab [facility] Comment on above: lab Start: 09-21-2024 End: 09-21-2024 Cath plmt r hrt & arts w/njx & angio img s&i RIGHT HEART CATH CORONARY ARTERY ANGIO INTRAPROCEDURAL INJECT IMAGE SUPERVISION/INTERPRETAT ION CAD in yuhaaviatam artery 09/21/2024 9:10 AM EST TAMPER OPERATOR Start: 09-16-2024 Advance Directive Discussion Advance Directive Discussion [facility] Start: 09-11-2024 End: 12-11-2024 Basic metabolic 2000 panel - Serum or Plasma BASIC METABOLIC PANEL Lab Routine Chronic systolic heart failure (HCC) Expected: 09/11/2024, Expires: 12/11/2024 [facility] Work Phone: Comment on above: Expected: 09/11/2024, Expires: Start: 09-11-2024 End: 12-11-2024 Natriuretic peptide.B prohormone N-Terminal [Mass/volume] in Serum or Plasma NT PRO BNP Lab Routine Chronic systolic heart failure (HCC) Expected: 09/11/2024, Expires: 12/11/2024 [facility] Comment on above: Expected: 09/11/2024, Expires: Start: 09-07-2024 End: 09-07-2024 Patient encounter procedure 09/07/2024 2:45 PM EST Office Visit Cardiology [address] [place] [address] Carmela Fernandes MD [address] [place] [address] Main, Nurse Card Chf [address] [place] [address] DX: Acute on chronic systolic congestive heart failure Cardiology Comment on above: DX: Acute on chronic systolic congestive heart failure Start: 09-07-2024 End: 09-07-2024 ambulatory 09/07/2024 2:00 PM EST Results Only [address] [place] [address] [place] [id number] DX: Acute on chronic systolic congestive heart failure [facility] J[address] Draw Station Comment on above: DX: Acute on chronic systolic congestive heart failure Start: 09-07-2024 End: 12-07-2024 Basic metabolic 2000 panel - Serum or Plasma BASIC METABOLIC PANEL Lab Routine Chronic systolic heart failure (HCC) Non-rheumatic mitral regurgitation Expected: 09/07/2024, Expires: 12/07/2024 [facility] Work Phone: Comment on above: Expected: 09/07/2024, Expires: Start: 09-07-2024 End: 12-07-2024 CBC panel - Blood by Automated count COMPLETE BLOOD COUNT Lab Routine Chronic systolic heart failure (HCC) Non-rheumatic mitral regurgitation Expected: 09/07/2024, Expires: 12/07/2024 [facility] Comment on above: Expected: 09/07/2024, Expires: Start: 09-07-2024 End: 12-07-2024 Natriuretic peptide.B prohormone N-Terminal [Mass/volume] in Serum or Plasma NT PRO BNP Lab Routine Chronic systolic heart failure (HCC) Non-rheumatic mitral regurgitation Expected: 09/07/2024 (Approximate), Expires: 12/07/2024 [facility] Comment on above: Expected: 09/07/2024 (Approximate), Expi res: 12/07/2024 Start: 08-31-2024 End: 08-31-2024 ambulatory 08/31/2024 2:00 PM EST Results Only [facility] [address] [place] [address] [place] [address] DX: Acute on chronic systolic congestive heart failure [facility] Comment on above: DX: Acute on chronic systolic congestive heart failure Start: 08-27-2024 End: 11-26-2024 Basic metabolic 2000 panel - Serum or Plasma BASIC METABOLIC PANEL Lab Routine Heart failure, acute systolic (HCC) Acute on chronic systolic congestive heart failure (HCC) Carotid stenosis, 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, left Expected: 08/27/2024, Expires: 11/26/2024 [facility] Comment on above: Expected: 08/27/2024, Expires: Start: 08-27-2024 End: 11-26-2024 CBC W Auto Differential panel - Blood COMPLETE BLOOD COUNT AND DIFFERENTIAL Lab Routine Heart failure, acute systolic (HCC) Acute on chronic systolic congestive heart failure (HCC) Carotid stenosis, 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, left Expected: 08/27/2024, Expires: 11/26/2024 [facility] Comment on above: Expected: 08/27/2024, Expires: Start: 08-27-2024 End: 11-26-2024 Natriuretic peptide.B prohormone N-Terminal [Mass/volume] in Serum or Plasma NT PRO BNP Lab Routine Heart failure, acute systolic (HCC) Acute on chronic systolic congestive heart failure (HCC) Carotid stenosis, 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, left Expected: 08/27/2024, Expires: 11/26/2024 [facility] Work Phone: Comment on above: Expected: 08/27/2024, Expires: Start: 08-19-2024 End: 08-19-2024 Patient encounter procedure Cardiology Comment on above: Dx: PVC DX: Acute on chronic systolic congestive heart failure Start: 08-19-2024 End: 08-19-2024 ambulatory 08/19/2024 9:00 AM EST Results Only Cardiology [address] [place] [address] Dx: PVC Cardiology Comment on above: Dx: PVC Start: 08-17-2024 Hemoglobin A1c measurement HbA1C [facility] Start: 07-31-2024 End: 07-31-2024 Patient encounter procedure 07/31/2024 3:40 PM EST Office Visit Kidney Medicine [address] [place] [address] [place] [address] [place] [phone] CKD Kidney Medicine Comment on above: CKD Start: 07-16-2024 End: 07-16-2024 Clinical Support 07/16/2024 1:45 PM EDT Clinical Support [facility] [address] [place] [phone] [facility] Start: 07-15-2024 End: 07-15-2024 Clinical Support 07/15/2024 1:45 PM EDT Clinical Support [facility] [address] [place] [phone] [facility] Start: 07-13-2024 End: 07-13-2024 Clinical Support 07/13/2024 1:45 PM EDT Clinical Support [facility] [address] [place] [address] [facility] Start: 07-09-2024 End: 07-09-2024 Clinical Support 07/09/2024 1:45 PM EDT Clinical Support [facility] [address] [place] [address] [facility] Start: 07-08-2024 End: 07-08-2024 Clinical Support 07/08/2024 1:45 PM EDT Clinical Support [facility] [address] [place] [address] [facility] Start: 07-06-2024 End: 07-06-2024 Clinical Support 07/06/2024 1:45 PM EDT Clinical Support [facility] [address] [place] [address] [facility] Start: 07-02-2024 End: 07-02-2024 Clinical Support 07/02/2024 1:45 PM EDT Clinical Support [facility] [address] [place] [address] [facility] Start: 07-01-2024 End: 07-01-2024 Clinical Support 07/01/2024 1:45 PM EDT Clinical Support [facility] [address] [place] [address] [facility] Start: 06-29-2024 End: 06-29-2024 Clinical Support 06/29/2024 1:45 PM EDT Clinical Support [facility] [address] [place] [address] [facility] Start: 06-25-2024 End: 06-25-2024 Clinical Support 06/25/2024 1:45 PM EDT Clinical Support [facility] [address] [place] [address] [facility] Start: 06-01-2024 End: 06-01-2024 ambulatory 06/01/2024 3:00 PM EDT [facility] Cardiology [address] [place] [address] Paulina Fernandes MD [address] [place] [address] DX: Dx: Cardiomyopathy, ischemic Cardiology Comment on above: DX: Dx: Cardiomyopathy, ischemic Start: 05-29-2024 End: 05-29-2024 Patient encounter procedure 05/29/2024 1:00 PM EDT Office Visit Kidney Medicine [address] [place] [address] [place] [address] [place] [address] CKD Kidney Medicine Comment on above: CKD Start: 05-17-2024 Covid-19 Vaccine ( season) Covid-19 Vaccine ( season) [facility] Start: 05-17-2024 Covid-19 Vaccine ( season) Covid-19 Vaccine ( season) [facility] Start: 05-17-2024 Influenza vaccination [facility] Start: 05-14-2024 End: 05-14-2024 Clinical Support 05/14/2024 11:00 AM EDT Clinical Support [facility] [address] [place] [address] [facility] Start: 05-13-2024 End: 05-13-2024 Clinical Support 05/13/2024 11:00 AM EDT Clinical Support [facility] [address] [place] [address] [facility] Start: 05-11-2024 End: 05-11-2024 Clinical Support 05/11/2024 11:00 AM EDT Clinical Support [facility] [address] [place] [address] [facility] Start: 05-07-2024 End: 05-07-2024 Clinical Support 05/07/2024 11:00 AM EDT Clinical Support [facility] [address] [place] [address] [facility] Start: 05-06-2024 End: 05-06-2024 Patient encounter procedure Cardiology Comment on above: DX: Severe mitral regurgitation [I34.0] Start: 05-04-2024 End: 05-04-2024 Clinical Support 05/04/2024 11:00 AM EDT Clinical Support [facility] [address] [place] [address] [facility] Start: 04-30-2024 End: 04-30-2024 Clinical Support 04/30/2024 11:00 AM EDT Clinical Support [facility] [address] [place] [address] [facility] Start: 04-29-2024 End: 04-29-2024 Clinical Support 04/29/2024 11:00 AM EDT Clinical Support [facility] [address] [place] [address] [facility] Start: 04-27-2024 End: 04-27-2024 Clinical Support 04/27/2024 11:00 AM EDT Clinical Support [facility] [address] [place] [address] [facility] Start: 04-23-2024 End: 04-23-2024 Clinical Support 04/23/2024 11:00 AM EDT Clinical Support [facility] [address] [place] [address] [facility] Start: 04-22-2024 End: 04-22-2024 Clinical Support 04/22/2024 11:00 AM EDT Clinical Support [facility] [address] [place] [address] [facility] Start: 04-20-2024 End: 04-20-2024 Clinical Support 04/20/2024 11:00 AM EDT Clinical Support [facility] [address] [place] [address] [facility] Start: 04-16-2024 Influenza vaccination Flu vaccine (#1) [facility] Start: 04-16-2024 End: 04-16-2024 Clinical Support 04/16/2024 11:00 AM EDT Clinical Support [facility] [address] [place] [address] [facility] Start: 04-15-2024 End: 04-15-2024 Clinical Support 04/15/2024 11:00 AM EDT Clinical Support [facility] [address] [place] [address] [facility] Start: 04-13-2024 End: 04-13-2024 Clinical Support 04/13/2024 11:00 AM EDT Clinical Support [facility] [address] [place] [address] [facility] Start: 04-09-2024 End: 04-09-2024 Clinical Support 04/09/2024 11:00 AM EDT Clinical Support [facility] [address] [place] [address] [facility] Start: 04-08-2024 End: 04-08-2024 Clinical Support 04/08/2024 11:00 AM EDT Clinical Support [facility] [address] [place] [address] [facility] Start: 04-07-2024 End: 07-07-2024 Basic metabolic 2000 panel - Serum or Plasma BASIC METABOLIC PANEL Lab Routine Chronic systolic heart failure (HCC) Expected: 04/07/2024 (Approximate), Expires: 07/07/2024 [facility] Work Phone: Comment on above: Expected: 04/07/2024 (Approximate), Expi res: 07/07/2024 Start: 04-06-2024 End: 04-06-2024 ambulatory [facility] Start: 04-02-2024 End: 04-02-2024 Clinical Support 04/02/2024 11:00 AM EDT Clinical Support [facility] [address] [place] [address] [facility] Start: 03-31-2024 End: 06-30-2024 Natriuretic peptide.B prohormone N-Terminal [Mass/volume] in Serum or Plasma NT PRO BNP Lab Routine Chronic systolic heart failure (HCC) Expected: 03/31/2024, Expires: 06/30/2024 [facility] Comment on above: Expected: 03/31/2024, Expires: Start: 03-31-2024 End: 03-31-2024 ambulatory [facility] Comment on above: Dx: Dx: Cardiomyopathy, ischemic Start: 03-31-2024 End: 03-31-2024 Patient encounter procedure 03/31/2024 1:15 PM EDT Office Visit Radiation Oncology [address] [place] [address] Yung Andrade MD [address] [place] [address] 6 month rv Radiation Oncology Comment on above: 6 month rv Start: 03-30-2024 End: 06-29-2024 Basic metabolic 2000 panel - Serum or Plasma [facility] Work Phone: Comment on above: Expected: 03/30/2024, Expires: Start: 03-30-2024 End: 03-30-2024 Patient encounter procedure Cardiology Comment on above: HFrEF Severe mitral regurg itation Start: 03-30-2024 End: 03-30-2024 ambulatory 03/30/2024 1:30 PM EDT Results Only Cardiology [address] [place] [address] Severe mitral regurgitation Cardiology Comment on above: Severe mitral regurgitation Start: 03-26-2024 End: 03-26-2024 Clinical Support 03/26/2024 11:00 AM EDT Clinical Support [facility] [address] [place] [address] [facility] Start: 03-25-2024 End: 03-25-2024 Clinical Support 03/25/2024 11:00 AM EDT Clinical Support [facility] [address] [place] [address] [facility] Start: 03-24-2024 End: 03-24-2024 Patient encounter procedure 03/24/2024 1:00 PM EDT Office Visit [facility] [address] [place] [address] [place] [address] lab [facility] Comment on above: lab Start: 03-18-2024 End: 03-18-2024 Distance Health 03/18/2024 2:05 PM EDT [facility] Neurology [facility] [address] [place] [address] Luís Skinner, VAN DRIVER.COMPUTER APPLICATIONS INSTRUCTOR [address] [facility] [address] [place] [address] HOSPITAL F/U - 0-2 week stroke fu appointment with an RYLIE, PER HOSPITAL ORDER Neurology [facility] Comment on above: HOSPITAL F/U - 0-2 week stroke fu appoin tment with an RYLIE, PER HOSPITAL ORDER Start: 03-11-2024 End: 03-11-2024 Patient encounter procedure 03/11/2024 11:20 AM EDT Office Visit Otolaryngology [address] [place] [address] Charu Ferrell, VAN DRIVER.COMPUTER APPLICATIONS INSTRUCTOR [address] [place] [address] Sore throat [J02.9] Otolaryngology Comment on above: Sore throat [J02.9] Start: 02-28-2024 End: 02-28-2024 Patient encounter procedure 02/28/2024 3:30 PM EDT Office Visit Cardiology [address] [place] [address] Keesha Mcarthur, VAN DRIVER.COMPUTER APPLICATIONS INSTRUCTOR [address] [place] [address] Severe mitral regurgitation Cardiology Comment on above: Severe mitral regurgitation Start: 02-28-2024 End: 02-28-2024 ambulatory 02/28/2024 3:00 PM EDT Results Only Cardiology [address] [place] [address] Severe mitral regurgitation Cardiology Comment on above: Severe mitral regurgitation Start: 02-27-2024 End: 2025 ECG COMPLETE ECG COMPLETE ECG Routine Severe mitral regurgitation Status post implantation of mitral valve leaflet clip Expected: 02/27/2024, Expires: 2025 [facility] Comment on above: Expected: 02/27/2024, Expires: Start: 02-18-2024 End: 02-18-2024 Evaluation and management of inpatient 02/18/2024 12:44 PM EDT - 02/18/2024 4:36 PM EDT Surgery Admitting [address] [place], [place] [id number] Isreal Rain MD [address] [facility] [address] [place] [address] TRANSCATHETER MITRAL VALVE REPAIR PERCUTANEOUS INCLUDE TRANSSEPTAL PUNCTURE WHEN PERFORMED INITIAL PROSTHESIS Admitting Comment on above: TRANSCATHETER MITRAL VALVE REPAIR PERCUT ANEOUS INCLUDE TRANSSEPTAL PUNCTURE WHEN PERFORMED INITIAL PROSTHESIS Start: 02-18-2024 End: 02-18-2024 Tcat mitral valve repair initial prosthesis TRANSCATHETER MITRAL VALVE REPAIR PERCUTANEOUS INCLUDE TRANSSEPTAL PUNCTURE WHEN PERFORMED INITIAL PROSTHESIS Mitral valve insufficiency, unspecified etiology 02/18/2024 12:[address] [facility] VAS Start: 02-18-2024 End: 02-18-2024 Evaluation and management of inpatient 02/18/2024 11:03 AM EDT - 02/18/2024 2:55 PM EDT Surgery Admitting [address] [place] [address] Isreal Rain MD [address] [place] [address] TRANSCATHETER MITRAL VALVE REPAIR PERCUTANEOUS INCLUDE TRANSSEPTAL [...] 10:45 AM EDT Office Visit Cardiology [address] [place] [address] to be admitted prior on 02/14 and will remain in the house for the procedure. Cardiology Comment on above: to be admitted prior on 02/14 and will rem ain in the house for the procedure. Start: 02-18-2024 End: 02-18-2024 ambulatory 02/18/2024 10:30 AM EDT Procedure Cardiology [address] [place] [address] to be admitted prior on 02/14 and [...] inpatient 02/15/2024 12:44 PM EDT Hospital Encounter [id number] [address] [id number] Isreal Rain MD [address] [facility] [address] [place] [address] to be admitted prior on 02/14 and will remain in the house for the procedure., Mitral Valve Transcatheter Ioku-bm-Jpbo Repair (M-AZAEL) w/ Cowatr MitraClip, Procedure on: 02/18/24 at 10:30 am [id number] Comment on above: to be admitted prior on 02/14 and will rem ain in the house for the procedure., Mitral Valve Transcatheter Aoiq-jl-Unsz Repair (M-AZAEL) w/ Cowart MitraClip, Procedure on: 02/18/24 at 10:30 am Start: 02-15-2024 Evaluation and management of inpatient 02/15/2024 11:03 AM EDT Hospital Encounter [id number] [address] [place] [address] Nicole Coppola MD [address] [place], [place] [phone] Isreal Rain MD [address] [place], [place] [phone] to be admitted prior on 02/14 and will remain in the house for the procedure., Mitral Valve Transcatheter Ykce-uz-Pent Repair (M-AZAEL) w/ Cowart MitraClip, Procedure on: 02/18/24 at 10:30 am [id number] Comment on above: to be admitted prior on 02/14 and will rem ain in the house for the procedure., Mitral Valve Transcatheter Eend-mf-Ntha Repair (M-AZAEL) w/ Cowart MitraClip, Procedure on: 02/18/24 at 10:30 am Start: 02-13-2024 End: 02-13-2024 Clinical Support 02/13/2024 1:30 PM EDT Clinical Support [facility] [address] [place] [address] [facility] Start: 02-12-2024 End: 02-12-2024 Clinical Support 02/12/2024 1:30 PM EDT Clinical Support [facility] [address] [place] [address] [facility] Start: 02-12-2024 End: 02-12-2024 Patient encounter procedure 02/12/2024 10:05 AM EDT Office Visit Otolaryngology [address] [place] [address] Charu Ferrell, VAN [email or web address] APPLICATIONS INSTRUCTOR [address] [place] [address] CONSULT TO ENT Otolaryngology Comment on above: CONSULT TO ENT Start: 02-11-2024 End: 02-11-2024 ambulatory 02/11/2024 4:00 PM EDT [facility] Cardiology [address] [place] [address] Paulina Fernandes MD [address] [place] [address] 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) Cardiology Comment on above: 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) Start: 02-06-2024 End: 02-06-2024 Clinical Support 02/06/2024 1:30 PM EDT Clinical Support [facility] [address] [place] [address] [facility] Start: 02-05-2024 End: 02-05-2024 Patient encounter procedure 02/05/2024 3:10 PM EDT Office Visit Vascular Medicine [address] [phone] [employer]MPOWER MITCH TO DO, Vascular Medicine Comment on above: EMPOWER MITCH TO DO, Start: 02-05-2024 End: 02-05-2024 Nursing evaluation of patient and report 02/05/2024 2:00 PM EDT Nurse Visit Cardiology [address] [place] [address] [place], Research Nurse Card Intervention [address] [place], [place] [phone] [facility] Comment on above: [phone] [facility] Start: 02-05-2024 End: 02-05-2024 ambulatory [facility] [address] jazmin German Comment on above: [employer] Start: 02-03-2024 End: 02-03-2024 Clinical Support 02/03/2024 1:30 PM EDT Clinical Support [facility] [address] [place] [address] [facility] Start: 01-30-2024 End: 01-30-2024 Clinical Support 01/30/2024 1:30 PM EDT Clinical Support [facility] [address] [place] [address] [facility] Start: 01-29-2024 End: 01-29-2024 Clinical Support 01/29/2024 1:30 PM EDT Clinical Support [facility] [address] [place] [address] [facility] Start: 01-27-2024 End: 01-27-2024 Clinical Support 01/27/2024 1:30 PM EDT Clinical Support [facility] [address] [place] [address] [facility] Start: 01-23-2024 End: 01-23-2024 Clinical Support 01/23/2024 1:30 PM EDT Clinical Support [facility] [address] [place] [address] [facility] Start: 01-22-2024 End: 01-22-2024 Clinical Support 01/22/2024 1:30 PM EDT Clinical Support [facility] [address] [place] [address] [facility] Start: 01-20-2024 End: 01-20-2024 Clinical Support 01/20/2024 1:30 PM EDT Clinical Support [facility] [address] [place] [address] [facility] Start: 01-16-2024 End: 01-16-2024 Clinical Support 01/16/2024 1:30 PM EDT Clinical Support [facility] [address] [place] [address] [facility] Start: 01-15-2024 End: 01-15-2024 Clinical Support 01/15/2024 1:30 PM EDT Clinical Support [facility] [address] [place] [address] [facility] Start: 01-13-2024 End: 01-13-2024 Clinical Support 01/13/2024 1:30 PM EDT Clinical Support [facility] [address] [place] [address] [facility] Start: 01-09-2024 End: 01-09-2024 Clinical Support 01/09/2024 1:30 PM EDT Clinical Support [facility] [address] [place] [address] [facility] Start: 01-08-2024 End: 01-08-2024 Clinical Support 01/08/2024 1:30 PM EDT Clinical Support [facility] [address] [place] [address] [facility] Start: 01-02-2024 End: 01-02-2024 Clinical Support 01/02/2024 1:30 PM EDT Clinical Support [facility] [address] [place] [address] [facility] Start: 01-01-2024 End: 01-01-2024 Clinical Support 01/01/2024 1:30 PM EDT Clinical Support [facility] [address] [place] [address] [facility] Start: 12-30-2023 End: 12-30-2023 Clinical Support 12/30/2023 1:30 PM EDT Clinical Support [facility] [address] [place] [address] [facility] Start: 12-26-2023 End: 12-26-2023 Clinical Support 12/26/2023 1:30 PM EDT Clinical Support [facility] [address] [place] [address] [facility] Start: 12-25-2023 End: 12-25-2023 Clinical Support 12/25/2023 1:30 PM EDT Clinical Support [facility] [address] [place] [address] [facility] Start: 10-29-2023 End: 01-28-2024 Comprehensive metabolic 2000 panel - Serum or Plasma COMP METABOLIC PANEL Lab Routine Chronic 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) Expected: 10/29/2023, Expires: 01/28/2024 [facility] Work Phone: Comment on above: Expected: 10/29/2023, Expires: Start: 09-16-2023 Advance Directive Discussion Advance Directive Discussion [facility] Start: 09-16-2023 Behavioral Health Screening Behavioral Health Screening [facility] Start: 09-16-2023 Depression Assessment Depression Assessment [facility] Start: 05-17-2023 Covid-19 Vaccine () Covid-19 Vaccine () [facility] Start: 05-17-2023 Influenza vaccination [facility] Start: 04-01-2023 End: 06-01-2023 Prostate specific Ag [Mass/volume] in Serum or Plasma PSA/PROSTSPECAG DIAG Lab Routine Malignant neoplasm of prostate (HCC) Expected: 04/01/2023 (Approximate), Expires: 06/01/2023 [facility] Work Phone: Comment on above: Expected: 04/01/2023 (Approximate), Expi res: 06/01/2023 Start: 01-15-2023 Hepatitis B surface antibody level LDL CHOLESTEROL [facility] Start: 10-27-2022 End: 12-27-2022 Prostate specific Ag [Mass/volume] in Serum or Plasma PSA/PROSTSPECAG DIAG Lab Routine Malignant neoplasm of prostate (HCC) Expected: 10/27/2022, Expires: 12/27/2022 [facility] Work Phone: Comment on above: Expected: 10/27/2022, Expires: 3 Start: 09-16-2022 ADVANCE DIRECTIVE DISCUSSION ADVANCE DIRECTIVE DISCUSSION [facility] Start: 09-16-2022 DEPRESSION ASSESSMENT DEPRESSION ASSESSMENT [facility] Start: 08-18-2022 Adult BMI Screening [facility] Start: 08-17-2022 Depression Screening Depression Screening [facility] [employer] [facility] Start: 07-18-2022 Hemoglobin A1c measurement HbA1C [facility] Start: 07-18-2022 Hemoglobin A1c/Hemoglobin.total in Blood HBA1C [facility] Start: 06-06-2022 End: 08-06-2022 Comprehensive metabolic 2000 panel - Serum or Plasma [facility] Work Phone: Comment on above: Expected: 06/06/2022, Expires: 2 Start: 06-06-2022 End: 08-06-2022 Natriuretic peptide.B prohormone N-Terminal [Mass/volume] in Serum or Plasma [facility] Work Phone: Comment on above: Expected: 06/06/2022, Expires: 2 Start: 05-17-2022 Influenza vaccination [facility] Start: 01-15-2022 End: 03-17-2022 Hemoglobin A1c/Hemoglobin.total in Blood [facility] Work Phone: Comment on above: Expected: 01/15/2022, Expires: 2 Start: 01-15-2022 End: 03-17-2022 Insulin [Units/volume] in Serum or Plasma [facility] Work Phone: Comment on above: Expected: 01/15/2022, Expires: 2 Start: 01-15-2022 End: 03-17-2022 IRON + TIBC [facility] Work Phone: Comment on above: Expected: 01/15/2022, Expires: 2 Start: 01-15-2022 End: 03-17-2022 LIPID PANEL BASIC [facility] Work Phone: Comment on above: Expected: 01/15/2022, Expires: 2 Start: 01-15-2022 End: 03-17-2022 T3 UPTAKE [facility] Work Phone: Comment on above: Expected: 01/15/2022, Expires: 2 Start: 01-15-2022 End: 03-17-2022 T4 FREE/FREE THYROX [facility] Work Phone: Comment on above: Expected: 01/15/2022, Expires: 2 Start: 01-15-2022 End: 03-17-2022 T4/FTI/T4U [facility] Work Phone: Comment on above: Expected: 01/15/2022, Expires: 2 Start: 01-15-2022 End: 03-17-2022 Thyrotropin [Units/volume] in Serum or Plasma [facility] Work Phone: Comment on above: Expected: 01/15/2022, Expires: 2 Start: 01-07-2022 End: 03-09-2022 Prostate specific Ag [Mass/volume] in Serum or Plasma PSA/PROSTSPECAG DIAG Lab Routine Malignant neoplasm of prostate (HCC) Expected: 01/07/2022, Expires: 03/09/2022 [facility] Work Phone: Comment on above: Expected: 01/07/2022, Expires: 2 Start: 09-16-2021 ADVANCE DIRECTIVE DISCUSSION ADVANCE DIRECTIVE DISCUSSION [facility] Start: 09-16-2021 DEPRESSION ASSESSMENT DEPRESSION ASSESSMENT [facility] Start: 06-19-2020 Hepatitis B surface antibody level LDL CHOLESTEROL [facility] Start: 2017 Respiratory Syncytial Virus (RSV) or age 60 yrs+ (1 - 1-dose 75+ series) Respiratory Syncytial Virus (RSV) or age 60 yrs+ (1 - 1-dose 75+ series) [facility] Start: 2017 RSV Vaccine (1 - 1-dose 75+ series) RSV Vaccine (1 - 1-dose 75+ series) [facility] Start: 02-14-2011 Medicare Annual Wellness Visit Medicare Annual Wellness Visit [facility] Start: 2007 Fall Risk Screening Fall Risk Screening [facility] Start: 2007 PNEUMOVAX AGE 65 AND OVER WITH 5YR LOOKBACK (#1) PNEUMOVAX AGE 65 AND OVER WITH 5YR LOOKBACK (#1) [facility] Start: 2002 RSV Vaccine (1 - 1-dose 60+ series) RSV Vaccine (1 - 1-dose 60+ series) [facility] Start: 02-20-1992 Pneumococcal 50+ years Vaccine (1 of 1 - PCV) Pneumococcal 50+ years Vaccine (1 of 1 - PCV) [facility] Start: 02-20-1992 Shingles vaccine (1 of 2) Shingles vaccine (1 of 2) [facility] Start: 02-20-1992 SHINGRIX VACCINE (1 of 2) SHINGRIX VACCINE (1 of 2) [facility] Start: 1961 Administration of varicella zoster vaccine Zoster (Shingles) Vaccine (1 of 2) [facility] Start: 1961 Pneumococcal Vaccine: 50+ (1 of 2 - PCV) Pneumococcal Vaccine: 50+ (1 of 2 - PCV) [facility] Start: 1961 SHINGRIX VACCINE (1 of 2) SHINGRIX VACCINE (1 of 2) [facility] Start: 02-20-1960 ANNUAL PCP TEAM CHRONIC DISEASE VISIT ANNUAL PCP TEAM CHRONIC DISEASE VISIT [facility] Start: 02-20-1960 Anxiety Screening Anxiety Screening [facility] Start: 02-20-1960 Depression Screening Depression Screening [facility] Start: 1954 Adult depression screening assessment DEPRESSION SCREENING [facility] Start: 1954 Depression Screen Depression Screen [facility] Start: 1954 Tobacco Screening Tobacco Screening [facility] Start: 02-20-1952 3 comp foot exam completed DIABETIC FOOT EXAM [facility] Start: 02-20-1952 Diabetic foot examination Diabetic Foot Exam [facility] Start: 02-20-1952 Glaucoma screening Dilated Retinal Exam [facility] Start: 02-20-1952 Hepatitis B screening URINE ALBUMIN:CREATININE RATIO [facility] Start: 02-20-1952 Hepatitis C antibody, confirmatory test DILATED RETINAL EXAM [facility] Start: 02-20-1948 Pneumococcal Vaccine: 65+ (1 - PCV) Pneumococcal Vaccine: 65+ (1 - PCV) [facility] Start: 02-20-1948 Pneumococcal Vaccine: 65+ (1 of 2 - PCV) Pneumococcal Vaccine: 65+ (1 of 2 - PCV) [facility] Start: 02-20-1948 PNEUMOCOCCAL: 65+ (1 - PCV) PNEUMOCOCCAL: 65+ (1 - PCV) [facility] Start: 1947 COVID-19 VACCINE (#1) COVID-19 VACCINE (#1) [facility] Start: 1947 COVID-19 VACCINE (1) COVID-19 VACCINE (1) [facility] Start: 1942 COVID-19 VACCINE (#1) COVID-19 VACCINE (#1) [facility] Start: 1942 Medicare Annual Wellness Visit Medicare Annual Wellness Visit [facility] [employer] [facility] 7 REMOVAL OF RESIDUA L TOOTH ROOTS (CUTTING PROCEDURE) 7 REMOVAL OF RESIDUAL TOOTH ROOTS (CUTTING PROCEDURE) Dental Routine 1 Occurrences starting 02/17/2024 [facility] Work Phone: Comment on above: 1 Occurrences starting 02/17/2024 CARDIAC IMPLANTABLE DEVICE CHECK CARDIAC IMPLANTABLE DEVICE CHECK PACEART Routine Pacemaker reprogramming/check 08/19/2024 10:11 AM EST [facility] CARDIOPULMONARY REHABILITATION CARDIOPULMONARY REHABILITATION Cardiac Services [...] (HCC) 1 Occurrences starting 06/06/2022 until 06/06/2023 [facility] Work Phone: Comment on above: 1 Occurrences starting 06/06/2022 until 06/06/2023 End: 10-30-2024 ECG COMPLETE ECG COMPLETE ECG Routine Chronic 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) 1 Occurrences starting 10/30/2023 until 10/30/2024 [facility] Work Phone: Comment on above: 1 Occurrences starting 10/30/2023 until 10/30/2024 End: 11-25-2024 ECG COMPLETE ECG COMPLETE ECG Routine Atherosclerosis of yuhaaviatam coronary artery, unspecified whether angina present, unspecified whether yuhaaviatam or transplanted heart 1 Occurrences starting 11/26/2023 until 11/25/2024 [facility] Work Phone: Comment on above: 1 Occurrences starting 11/26/2023 until 11/25/2024 End: 12-22-2024 ECG COMPLETE ECG COMPLETE ECG Routine HFrEF (heart failure with reduced ejection fraction) ([facility]) Mitral valve insufficiency, unspecified etiology 1 Occurrences starting 12/23/2023 until 12/22/2024 [facility] Work Phone: Comment on above: 1 Occurrences starting 12/23/2023 until 12/22/2024 ECG COMPLETE ECG COMPLETE ECG Routine Severe mitral regurgitation Cardiomyopathy, ischemic S/P CABG (coronary artery bypass graft) 1 Occurrences starting 12/26/2023 [facility] Work Phone: Comment on above: 1 Occurrences starting 12/26/2023 End: 2025 ECG COMPLETE ECG COMPLETE ECG Routine Severe mitral regurgitation Status post implantation of mitral valve leaflet clip 1 Occurrences starting 02/20/2024 until 2025 [facility] Comment on above: 1 Occurrences starting 02/20/2024 until 2025 End: 03-30-2025 ECG COMPLETE ECG COMPLETE ECG Routine Cardiomyopathy, ischemic S/P mitral valve clip implantation 1 Occurrences starting 03/30/2024 until 03/30/2025 [facility] Comment on above: 1 Occurrences starting 03/30/2024 until 03/30/2025 End: 07-27-2025 ECG COMPLETE ECG COMPLETE ECG Routine Frequent PVCs 1 Occurrences starting 07/27/2024 until 07/27/2025 [facility] Work Phone: Comment on above: 1 Occurrences starting 07/27/2024 until 07/27/2025 End: 03-15-2026 ECG COMPLETE ECG COMPLETE ECG Routine SOB (shortness of breath) 1 Occurrences starting 03/15/2025 until 03/15/2026 [facility] Work Phone: Comment on above: 1 Occurrences starting 03/15/2025 until 03/15/2026 End: 06-06-2023 Echocardiography ECHO Cardiology Routine Chronic systolic heart failure (HCC) 1 Occurrences starting 06/06/2022 until 06/06/2023 [facility] Work Phone: Comment on above: 1 Occurrences starting 06/06/2022 until 06/06/2023 End: 10-30-2024 Echocardiography ECHO Cardiology Routine Chronic 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) 1 Occurrences starting 10/30/2023 until 10/30/2024 [facility] Work Phone: Comment on above: 1 Occurrences starting 10/30/2023 until 10/30/2024 End: 11-25-2024 Echocardiography ECHO Cardiology Routine Atherosclerosis of yuhaaviatam coronary artery, unspecified whether angina present, unspecified whether yuhaaviatam or transplanted heart 1 Occurrences starting 11/26/2023 until 11/25/2024 [facility] Work Phone: Comment on above: 1 Occurrences starting 11/26/2023 until 11/25/2024 End: 12-22-2024 Echocardiography ECHO Cardiology Routine HFrEF (heart failure with reduced ejection fraction) (HCC) Mitral valve insufficiency, unspecified etiology 1 Occurrences starting 12/23/2023 until 12/22/2024 [facility] Work Phone: Comment on above: 1 Occurrences starting 12/23/2023 until 12/22/2024 End: 12-25-2024 Echocardiography ECHO Cardiology Routine Severe mitral regurgitation Cardiomyopathy, ischemic S/P CABG (coronary artery bypass graft) 1 Occurrences starting 12/26/2023 until 12/25/2024 [facility] Work Phone: Comment on above: 1 Occurrences starting 12/26/2023 until 12/25/2024 End: 2025 Echocardiography ECHO Cardiology Routine Severe mitral regurgitation Status post implantation of mitral valve leaflet clip 1 Occurrences starting 02/20/2024 until 2025 [facility] Work Phone: Comment on above: 1 Occurrences starting 02/20/2024 until 2025 End: 03-30-2025 Echocardiography ECHO Cardiology Routine Cardiomyopathy, ischemic S/P mitral valve clip implantation 1 Occurrences starting 03/30/2024 until 03/30/2025 [facility] Comment on above: 1 Occurrences starting 03/30/2024 until 03/30/2025 End: 07-27-2025 HOLTER MONITOR 48 HOUR HOLTER MONITOR 48 HOUR ECG Routine PVC (premature ventricular contraction) 1 Occurrences starting 07/27/2024 until 07/27/2025 [facility] Work Phone: Comment on above: 1 Occurrences starting 07/27/2024 until 07/27/2025 End: 08-19-2025 HOLTER MONITOR 48 HOUR HOLTER MONITOR 48 HOUR ECG Routine Frequent PVCs 1 Occurrences starting 08/19/2024 until 08/19/2025 [facility] Work Phone: Comment on above: 1 Occurrences starting 08/19/2024 until 08/19/2025 End: 09-18-2025 LUNG DIFFUSION CAPACITY (DLCO) LUNG DIFFUSION CAPACITY (DLCO) PFT Routine Frequent PVCs 1 Occurrences starting 08/19/2024 until 09/18/2025 [facility] Comment on above: 1 Occurrences starting 08/19/2024 until 09/18/2025 End: 10-06-2023 NM PET/CT CARDIAC PERF REST/STRESS NM PET/CT CARDIAC PERF REST/STRESS Radiology Routine Chronic systolic heart failure (HCC) 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 1 Occurrences starting 09/06/2022 until 10/06/2023 [facility] Work Phone: Comment on above: 1 Occurrences starting 09/06/2022 until 10/06/2023 End: 10-06-2023 NM PET/CT CARDIAC VIABILITY NM PET/CT CARDIAC VIABILITY Radiology Routine Chronic systolic heart failure (HCC) 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 1 Occurrences starting 09/06/2022 until 10/06/2023 [facility] Work Phone: Comment on above: 1 Occurrences starting 09/06/2022 until 10/06/2023 RED BLOOD CELLS, ADULT RED BLOOD CELLS, ADULT Blood Bank Routine 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) Ordered: 02/17/2024 [facility] [facility] Work Phone: Comment on above: Ordered: 02/17/2024 End: 09-18-2025 SPIROMETRY BASELINE ONLY SPIROMETRY BASELINE ONLY PFT Routine Frequent PVCs 1 Occurrences starting 08/19/2024 until 09/18/2025 [facility] Comment on above: 1 Occurrences starting 08/19/2024 until 09/18/2025 End: 04-17-2025 US Carotid arteries - bilateral US CAROTID BILATERAL Radiology Routine Carotid stenosis, 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, left 1 Occurrences starting 03/18/2024 until 04/17/2025 [facility] Work Phone: Comment on above: 1 Occurrences starting 03/18/2024 until 04/17/2025 End: 09-17-2025 US Carotid arteries - bilateral US CAROTID BILATERAL Radiology Routine Carotid stenosis, 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, left 1 Occurrences starting 08/18/2024 until 09/17/2025 [facility] Work Phone: Comment on above: 1 Occurrences starting 08/18/2024 until 09/17/2025 End: 08-03-2023 US CAROTID ARTERIES [facility] US CAROTID ARTERIES [facility] Vascular Lab Routine Bilateral carotid artery stenosis 1 Occurrences starting 08/03/2022 until 08/03/2023 [facility] Work Phone: Comment on above: 1 Occurrences starting 08/03/2022 until 08/03/2023 [facility] Immunizations Immunization Date Immunization Notes Care Provider Renetta carcamo 06-13-2020 diphtheria, tetanus toxoids and pertussis vaccine ARACELI Andrade MD Work Phone: [facility] Payers Date Payer Category Payer Private Health Insurance [id number] 2018 Commercial Indemnity MEDICAL MUT UAL [id number] 2018 Unknown MMO MMO MEDICARE SUPPLEMENT [id number] 2018-Present [phone] [address] [place] [address] Indemnity [id number] 2018 Unknown [id number]. [id number] 2007 Medicare MEDICARE MEDICAR E A AND B [id number] 2007-Present [phone] [place] [address] Medicare [id number] 2007 Medicare [id number] [id number]. [id number] 1959 Medicare [id number] 1959 Self-pay [id number] 1959 Unknown [id number] 1942 Unknown [id number] 2.16.840.1.668651.3.579.2. 647 1942 Unknown [id number] 2.16.840.1.549499.3.579.2. 593 1942 Unknown [id number] 2.16.840.1.203740.3.579.2. 593 1942 Unknown [id number] 2.16.840.1.370313.3.579.2. 593 1942 Unknown [id number] 2.16.840.1.555716.3.579.2. 593 1942 Unknown [id number] 2.16.840.1.063457.3.579.2. 593 1942 Unknown [id number] 2.16.840.1.628360.3.579.2. 593 1942 Unknown [id number] 2.16.840.1.133917.3.579.2. 593 1942 Unknown [id number] 2.16.840.1.283571.3.579.2. 593 1942 Unknown [id number] 2.16.840.1.697736.3.579.2. 593 1942 Unknown [id number] 2.16.840.1.256171.3.579.2. 593 1942 Unknown [id number] 2.16.840.1.542403.3.579.2. 593 1942 Unknown [id number] 2.16.840.1.343427.3.579.2. 593 1942 Unknown [id number] 2.16.840.1.927814.3.579.2. 593 1942 Unknown [id number] 2.16.840.1.140505.3.579.2. 593 1942 Unknown [id number] 2.16.840.1.173262.3.579.2. 593 1942 Unknown [id number] 2.16.840.1.279768.3.579.2. 593 1942 Unknown [id number] 2.16.840.1.319508.3.579.2. 1286 1942 Unknown [id number] 2.16.840.1.871665.3.579.2. 1286 1942 Unknown [id number] 2.16.840.1.170295.3.579.2. 1259 1942 Unknown [id number] 2.840.1.226219.3.579.2. 1259 1942 Unknown [id number] 2.840.1.302414.3.579.2. 128 1942 Unknown [id number] 2.840.1.355358.3.579.2. 128 1942 Unknown [id number] 2.840.1.624518.3.579.2. 1285 1942 Unknown [id number] 2.840.1.741426.3.579.2. 1285 1942 Unknown [id number] 2.840.1.498871.3.579.2. 128 1942 Unknown [id number] 2.840.1.441307.3.579.2. 128 1942 Unknown [id number] 2.840.1.420614.3.579.2. 1285 1942 Unknown [id number] 2.840.1.344354.3.579.2. 128 1942 Unknown [id number] 2.840.1.714922.3.579.2. 128 1942 Unknown [id number] 2.840.1.276223.3.579.2. 1286 1942 Unknown [id number] 2.840.1.610633.3.579.2. 128 1942 Unknown [id number] 2.16.840.1.697402.3.579.2. 1285 1942 Unknown [id number] 2.16.840.1.496641.3.579.2. 1285 1942 Unknown [id number] 2.16.840.1.477298.3.579.2. 1285 1942 Unknown [id number] 2.16.840.1.802788.3.579.2. 1286 1942 Unknown [id number] 2.16.840.1.401426.3.579.2. 1285 1942 Unknown [id number] 2.16.840.1.622331.3.579.2. 1285 1942 Unknown [id number] 2.16.840.1.540157.3.579.2. 1285 1942 Unknown [id number] 2.16.840.1.779973.3.579.2. 1286 Social History Date Type Detail Facility Start: 04-28-2012 End: 08-19-2024 Tobacco smoking status NHIS Ex-smoker [facility] Work Phone: Start: 04-28-1972 End: 04-28-1982 History of tobacco use Current smoker [facility] Work Phone: Start: 04-28-1972 End: 04-28-1982 History of tobacco use Cigarette Smoker [facility] Work Phone: End: 04-28-1982 History of tobacco use Pipe Smoker [facility] Work Phone: Start: 04-28-2012 End: 02-05-2024 Cigarettes smoked current (pack per day) - Reported 1 [facility] Start: 04-28-2012 End: 08-19-2024 Tobacco use and exposure Smokeless tobacco non-user [facility] Work Phone: Start: 12-04-2021 End: 05-11-2024 Alcohol intake Current drinker of alcohol (finding) [facility] Start: 04-15-2020 History SDOH Alcohol Frequency 2 [facility] Start: 04-15-2020 History SDOH Alcohol Std Drinks 1 [facility] Start: 03-13-2019 History SDOH Alcohol Comment occassional [facility] Start: 1940 Sex Assigned At Male [facility] Start: 08-06-2021 End: 06-06-2022 Exposure to SARS-CoV-2 (event) Not sure [facility] Start: 10-25-2022 Alcohol Comment rarely [facility] Start: 04-15-2020 End: 02-05-2024 Alcohol Use Disorder Identification Test - Consumption [AUDIT-C] [facility] How often to you hav e a drink containing alcohol? Monthly or less [facility] How many standard dr inks containing alcohol do you have on a typical day? 1 or 2 [facility] Frequency of Binge Drinking Not on file [facility] Start: 02-22-2019 Gender identity Identifies as male gender (finding) [facility] Start: 02-22-2019 Sexual orientation Heterosexual (prince barnhart) [facility] Has the [employer] threatened to shut off services in your home in past 12Mo No [facility] Work Phone: (I/We) worried lizzie er (my/our) food would run out before (I/we) got money to buy more. Never true [facility] In the past 12 month s, was there a time when you were not able to pay the mortgage or rent on time? Yes [facility] Start: 08-19-2024 End: 09-22-2024 Alcoholic beverage intake Ex-drinker (finding) [facility] Are you now , , , , never or living with a partner? [facility] How often do you hav e 6 or more drinks on 1 occasion? Never [facility] Do you feel stress - tense, restless, nervous, or anxious, or unable to sleep at night because your mind is troubled all the time - these days [OSQ] Not at all [facility] Start: 08-17-2021 Alcohol Comment 1 beer/month [facility] Start: 1940 Sex Assigned At Not on file [facility] Start: 04-19-2015 Sex Male (finding) [facility] Start: 03-25-2025 Tobacco smoking stat RUSTIS Tobacco smoking consumption unknown [facility] NEGATED: Highlighted rowStart: CARMENF History of tobacco use Passive smoker [facility] Medical Equipment Procedure Code Equipment Code Equipment Origin al Text Equipment Identifier Dates [place] Cv 6x1in Thk1.65mm Ptfe - [id number] Start: 05-01-2012 Comment on above: Description: used fo r plrdgetts. Patch Cv 8x.8cm Tapr Vsgrd Bov - [id number] Start: 07-01-2012 Comment on above: Description: Right C arotid [id number] Start: 03-24-2019 [id number]_[facility] Start : 03-16-2019 [id number] Rossy vity Mri [id number] Start: 03-24-2019 [id number] Reli ance 4-Front [id number] Start: 03-24-2019 [id number] Harper clip Xt Delivery System - [id number] Start: 02-18-2024 Sys Kit 1 Sgc & Up To 3 Clips - [id number] Start: 02-18-2024 System Vascade 6 /7fr Collagen Compression Bioabsorbable Vascular - [id number] Start: 03-04-2024 Stent Precise Pr o Rx 8mm Nitinol 40mm 135cm Vascular Self Expand Micromesh - [id number] Start: 03-04-2024 Goals Date Patient Goal Desired Activity /State Personal health goal Personal health goal Comment on above: Formatting of this n ote might be different from the original. Evaluation of progress towards goal: To return home safely with spouse and attend outpatient therapy. Functional Status Date Assessment Result Facility 03-03-2025 Are you deaf, or do you have serious difficulty hearing 03/03/2025 3:03 PM Lianne Agarwal RN [facility] 03-03-2025 Are you blind, or do you have serious difficulty seeing, even when wearing glasses No 03/03/2025 3:03 PM Lianne Agarwal, INOCENTE No [facility] 03-03-2025 Do you have serious difficulty walking or climbing stairs No 03/03/2025 3:03 PM Lianne Agarwal, INOCENTE No [facility] 03-03-2025 Do you have difficul ty dressing or bathing No 03/03/2025 3:03 PM Lianne Agarwal, INOCENTE No [facility] 03-03-2025 Because of a physica l, mental, or emotional condition, do you have difficulty doing errands alone such as visiting a physician's office or shopping No 03/03/2025 3:03 PM Lianne Agarwal, INOCENTE No [facility] 09-25-2024 Are you deaf, or do you have serious difficulty hearing No 09/25/2024 12:55 PM Allyn Garcia RN No [facility] 09-25-2024 Are you blind, or do you have serious difficulty seeing, even when wearing glasses No 09/25/2024 12:55 PM Allyn Garcia RN No [facility] 09-25-2024 Do you have serious difficulty walking or climbing stairs Yes 09/25/2024 12:55 PM Allyn Garcia, INOCENTE Yes [facility] 09-25-2024 Do you have difficul ty dressing or bathing No 09/25/2024 12:55 PM Allyn Garcia RN No [facility] 09-25-2024 Because of a physica l, mental, or emotional condition, do you have difficulty doing errands alone such as visiting a physician's office or shopping No 09/25/2024 12:55 PM Allyn Garcia RN No [facility] 05-16-2024 Are you deaf, or do you have serious difficulty hearing No 05/16/2024 2:47 PM Sergio Valdez RN No [facility] 05-16-2024 Are you blind, or do you have serious difficulty seeing, even when wearing glasses No 05/16/2024 2:47 PM Sergio Valdez RN No [facility] 05-16-2024 Do you have serious difficulty walking or climbing stairs No 05/16/2024 2:47 PM EDT Sergio Mina RN No [facility] 05-16-2024 Do you have difficul ty dressing or bathing No 05/16/2024 2:47 PM EDT Sergio Mina RN No [facility] 05-16-2024 Because of a physica l, mental, or emotional condition, do you have difficulty doing errands alone such as visiting a physician's office or shopping No 05/16/2024 2:47 PM EDT Sergio Mina RN No [facility] Mental Status Date Assessment Result Facility 03-03-2025 Because of a physica l, mental, or emotional condition, do you have serious difficulty concentrating, remembering, or making decisions No 03/03/2025 3:03 PM EDT Lianne Ramírez RN No [facility] 09-25-2024 Because of a physica l, mental, or emotional condition, do you have serious difficulty concentrating, remembering, or making decisions No 09/25/2024 12:55 PM Allyn Garcia RN No [facility] 05-16-2024 Because of a physica l, mental, or emotional condition, do you have serious difficulty concentrating, remembering, or making decisions No 05/16/2024 2:47 PM EDT Sergio Mina RN No [facility] Clinical Notes 05-01-2012 to 04-28-2025 Allyn Katz - 04/13/2025 10:52 AM DOTTIETSlucien Evans DPM - 03/25/2025 3:30 PM EDTTelephone Encounter - Kathie Pavon RN - 03/22/2025 9:40 AM EDTPatient InstructionsPatient Instructions Note Date & Type Note Facility 04-28-2025 Note [facility] 04-26-2025 Note [facility] 04-13-2025 Note [facility] 04-13-2025 History of Present illness Narrative Summary: KCCQ-12 AMB TVT FOLLOWUP: Follow Up Type: Phone Call Call Attempt: 1st Attempt Call Status: Left Message and Patient Refused Patient immediately returned call. He agreed to complete but was unable to state answers, saying it was too difficult to answer them. documented in this encounter [facility] 04-08-2025 Note [facility] 04-08-2025 Note [facility] 03-25-2025 History of Present illness Narrative Images from the original note were not included. Subjective Patient ID: José Miguel Antonio Jr. is a 85 y.o. male who presents for Nail care (José Miguel Antonio Jr. is a 84 y.o. [...] and oriented. Pleasant disposition. Independently ambulatory. Wearing new balance footwear. Accompanied by his daughter, Crys. Vascular: [...] Ayana Evans DPM documented in this encounter [facility] 03-24-2025 Note [facility] 03-22-2025 Telephone encounter Note Pt called in again and has had [...] that. At that time, he will let front counter attendant know and arrange either in person or phone visit for follow up with Dr Andrade. Dr Andrade- please sign pended order. Kathie Pavon RN [facility] 03-22-2025 Miscellaneous Notes Pt called in again and has had [...] that. At that time, he will let front counter attendant know and arrange either in person or phone visit for follow up with Dr Andrade. Dr Andrade- please sign pended order. Kathie Pavon, RN Call received from pt after having to cancel prior appts. Pt requested CB from nursing. Pt call was returned and LM requesting CB. Kathie Pavon, RN documented in this encounter [facility] 03-22-2025 Telephone encounter Note Call received from pt after having to cancel prior appts. Pt requested CB from nursing. Pt call was returned and LM requesting CB. Kathie Pavon, RN [facility] 03-17-2025 Note [facility] 03-16-2025 Note [facility] 03-16-2025 Note [facility] 03-15-2025 Note [facility] 03-15-2025 Note [facility] 03-15-2025 Note Likely secondary to acute on chronic kidney disease Patient received dextrose and insulin [facility] 03-15-2025 Note [facility] 03-15-2025 Note [facility] 03-15-2025 Note Highest troponin kristopher t up to 401 EKG showed a flutter with variable AV block Troponin elevation likely combination of CHF exacerbation and MYLES [facility] 03-15-2025 Note Continue Eliquis and Toprol-XL as well as mexiletine [facility] 03-15-2025 Note Continue sliding sca le insulin for now [facility] 03-15-2025 Note Blood culture from [facility] reported Stenotrophomonas maltophilia Per ID blood cultures likely contaminant and antibiotics being discontinued [facility] 03-15-2025 Note Not in exacerbation [place] [facility] 03-15-2025 Note [facility] 03-15-2025 Note Discharge Planning [facility] no longer able to accept patient as he is out of Medicare SNF days and they do not accept secondary, Medical [employer]. [facility] still considering [facility] 03-15-2025 Note [facility] 03-14-2025 Note Continue Eliquis and Toprol-XL as well as mexiletine [facility] 03-14-2025 Note Likely secondary to acute on chronic kidney disease Patient received dextrose and insulin [facility] 03-14-2025 Note Continue sliding sca le insulin for now [facility] 03-14-2025 Note Not in exacerbation [place] [facility] 03-14-2025 Note Blood culture from [facility] reported Stenotrophomonas maltophilia Per ID blood cultures likely contaminant and antibiotics being discontinued [facility] 03-14-2025 Note [facility] 03-14-2025 Note Highest troponin kristopher t up to 401 EKG showed a flutter with variable AV block Troponin elevation likely combination of CHF exacerbation and MYLES [facility] 03-14-2025 Note [facility] 03-14-2025 Note [facility] 03-14-2025 Note [facility] 03-14-2025 Note [facility] 03-14-2025 Note [facility] 03-13-2025 Note [facility] 03-13-2025 Note [facility] 03-13-2025 Note Likely secondary to acute on chronic kidney disease Patient received dextrose and insulin [facility] 03-13-2025 Note Highest troponin kristopher t up to 401 EKG showed a flutter with variable AV block Troponin elevation likely combination of CHF exacerbation and MYLES [facility] 03-13-2025 Note Continue Eliquis and Toprol-XL as well as mexiletine [facility] 03-13-2025 Note [facility] 03-13-2025 Note Blood culture from [facility] reported Stenotrophomonas maltophilia Per ID blood cultures likely contaminant and antibiotics being discontinued [facility] 03-13-2025 Note [facility] 03-13-2025 Note Not in exacerbation [place] [facility] 03-13-2025 Note Continue sliding sca le insulin for now [facility] 03-13-2025 Note [facility] 03-12-2025 Note [facility] 03-12-2025 Note Likely secondary to acute on chronic kidney disease Patient received dextrose and insulin per report current potassium 3.8 [facility] 03-12-2025 Note [facility] 03-12-2025 Note Not in exacerbation [facility] 03-12-2025 Note Blood culture from [facility] reported Stenotrophomonas maltophilia Per ID blood cultures likely contaminant and antibiotics being discontinued [facility] 03-12-2025 Note [facility] 03-12-2025 Note Continue Eliquis and Toprol-XL as well as mexiletine [facility] 03-12-2025 Note Highest troponin kristopher t up to 401 EKG showed a flutter with variable AV block Troponin elevation likely combination of CHF exacerbation and MYLES [facility] 03-12-2025 Note Continue sliding sca le insulin for now [facility] 03-12-2025 Note [facility] 03-12-2025 Note [facility] 03-12-2025 Note [facility] 03-12-2025 Note [facility] 03-12-2025 Note [facility] 03-12-2025 Note [facility] 03-11-2025 Note [facility] 03-11-2025 Note [facility] 03-11-2025 Note Continue sliding sca le insulin for now [facility] 03-11-2025 Note Blood culture from [facility] reported Stenotrophomonas maltophilia Per ID blood cultures likely contaminant and antibiotics being discontinued [facility] 03-11-2025 Note Continue Eliquis and Toprol-XL as well as mexiletine [facility] 03-11-2025 Note Highest troponin kristopher t up to 401 EKG showed a flutter with variable AV block Troponin elevation likely combination of CHF exacerbation and MYLES [facility] 03-11-2025 Note [facility] 03-11-2025 Note [facility] 03-11-2025 Note Not in exacerbation [facility] 03-11-2025 Note Likely secondary to acute on chronic kidney disease Patient received dextrose and insulin per report current potassium 3.8 [facility] 03-11-2025 Note [facility] 03-11-2025 Note [facility] 03-11-2025 Note [facility] 03-11-2025 Note [facility] 03-10-2025 Note [facility] 03-10-2025 Note [facility] 03-10-2025 Note [facility] 03-10-2025 Note Likely secondary to acute on chronic kidney disease Patient received dextrose and insulin per report current potassium 3.8 [facility] 03-10-2025 Note [facility] 03-10-2025 Note Continue sliding sca le insulin for now [facility] 03-10-2025 Note Continue Eliquis and Toprol-XL as well as mexiletine [facility] 03-10-2025 Note Blood culture from [facility] reported Stenotrophomonas maltophilia Per ID blood cultures likely contaminant and antibiotics being discontinued [facility] 03-10-2025 Note [facility] 03-10-2025 Note Not in exacerbation [facility] 03-10-2025 Note Highest troponin kristopher t up to 401 EKG showed a flutter with variable AV block Troponin elevation likely combination of CHF exacerbation and MYLES [facility] 03-10-2025 Note [facility] 03-10-2025 Note [facility] 03-10-2025 Note [facility] 03-10-2025 Note [facility] 03-10-2025 Note [facility] 03-09-2025 Note [facility] 03-09-2025 Note [facility] 03-09-2025 Note Not in exacerbation [facility] 03-09-2025 Note Likely secondary to acute on chronic kidney disease Patient received dextrose and insulin per report current potassium 3.7 [facility] 03-09-2025 Note [facility] 03-09-2025 Note Blood culture from [facility] reported Stenotrophomonas maltophilia Per ID blood cultures likely contaminant and antibiotics being discontinued [facility] 03-09-2025 Note Continue Eliquis and Toprol-XL as well as mexiletine [facility] 03-09-2025 Note Highest troponin kristopher t up to 401 EKG showed a flutter with variable AV block Troponin elevation likely combination of CHF exacerbation and MYLES [facility] 03-09-2025 Note [facility] 03-09-2025 Note Continue sliding sca le insulin for now [facility] 03-09-2025 Note [facility] 03-09-2025 Note [facility] 03-09-2025 Note [facility] 03-09-2025 Note [facility] 03-09-2025 Note [facility] 03-09-2025 Note [facility] 03-09-2025 Note [facility] 03-08-2025 Note [facility] 03-08-2025 Note [facility] 03-08-2025 Note Not in exacerbation [facility] 03-08-2025 Note Continue Eliquis and Toprol-XL as well as mexiletine [facility] 03-08-2025 Note [facility] 03-08-2025 Note Continue sliding sca le insulin for now [facility] 03-08-2025 Note [facility] 03-08-2025 Note Highest troponin kristopher t up to 401 EKG showed a flutter with variable AV block Troponin elevation likely combination of CHF exacerbation and MYLES [facility] 03-08-2025 Note Likely secondary to acute on chronic kidney disease Patient received dextrose and insulin per report current potassium 4.4 [facility] 03-08-2025 Note [facility] 03-08-2025 Note [facility] 03-08-2025 Note [facility] 03-08-2025 Note [facility] 03-07-2025 Note [facility] 03-07-2025 Note Not in exacerbation [place] [facility] 03-07-2025 Note 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 Patient to have arterial Doppler to rule out any occlusive disease and venous duplex Appreciate vascular input [facility] 03-07-2025 Note Likely secondary to acute on chronic kidney disease Patient received dextrose and insulin per report current potassium 3.5 [facility] 03-07-2025 Note Continue Eliquis and Toprol-XL as well as mexiletine [facility] 03-07-2025 Note Highest troponin kristopher t up to 401 EKG showed a flutter with variable AV block Troponin elevation likely combination of CHF exacerbation and MYLES [facility] 03-07-2025 Note Continue sliding sca le insulin for now [facility] 03-07-2025 Note [facility] 03-07-2025 Note [facility] 03-07-2025 Note [facility] 03-07-2025 Note [facility] 03-06-2025 Note 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 Baseline creatinine reported 1.9-2.2 and current creatinine 3.09 Appreciate nephrology input [facility] 03-06-2025 Note Not in exacerbation [place] [facility] 03-06-2025 Note Continue Eliquis and Toprol-XL as well as mexiletine [facility] 03-06-2025 Note Highest troponin kristopher t up to 401 EKG showed a flutter with variable AV block Troponin elevation likely combination of CHF exacerbation and MYLES [facility] 03-06-2025 Note Likely secondary to acute on chronic kidney disease Patient received dextrose and insulin per report current potassium 4.3 [facility] 03-06-2025 Note Patient had some dis coloration of his toes as well as erythema bilateral lower extremities that does not seem infectious in nature. Will discuss case with vascular team for possible workup with ABIs and arterial duplex [facility] 03-06-2025 Note Continue sliding sca le insulin for now [facility] 03-06-2025 Note [facility] 03-06-2025 Note [facility] 03-05-2025 Note Diabetic diet Will check blood sugar AC and at bedtime and cover with ISS [facility] 03-05-2025 Note No chest pain Will recheck troponin level [facility] 03-05-2025 Note Paracentesis will be ordered as needed [facility] 03-05-2025 Note Strict I's and O's, daily weight Cardiology consult Will resume home dose of diuretics [facility] 03-05-2025 Note Patient's initial po tassium at presentation was 5.6 but improved with treatment, per report Will recheck the level and treat accordingly [facility] 03-05-2025 Note Blood work ordered Nephrology consult [facility] 03-04-2025 History of Present illness Narrative [facility] Telephone call I called and [...] and care coordination (not separately reported) SIGNATURE Claudia Rodrigues APRN.DOROTHY documented in this encounter [facility] 03-04-2025 Note [facility] 03-02-2025 Telephone encounter Note Called and spoke to the patient's daughter to schedule DCC on 03/03/[address] Wei. Provided time and instructions to the daughter. Alison Tam RN [facility] 03-02-2025 Miscellaneous Notes Called and spoke to [...] 2025 3:53 PM documented in this encounter [facility] 03-02-2025 Telephone encounter Note ----- Message from [...] Rankin RN March 01, 2025 3:53 PM [facility] 03-01-2025 Note In-Office Device Romy luation OPD with Dr. Wei * Device type: BST dual lead ICD * Presenting Rhythm: AF/VS-AREA SALES MANAGER * Underlying Rhythm: AF with variable ventricular [...] or infection. * Other Diagnostics: *AP 1%, AREA SALES MANAGER <1%, AT/AF burden 1% (however likely higher d/t DDIR programming)* Tachycardia: AF * Stored EGMs are consistent with or suggestive of Atrial Fibrillation, intermittent RVR observed on stored episodes * AT/AF [place]: 1% * OAC: Eliquis Appropriate VT Therapy: [...] your care plan. documented in this encounter [facility] 03-01-2025 Note [facility] 03-01-2025 History of Present illness Narrative Images from the original note were not included. [facility] [place] Jose Martin Silva Department of Cardiovascular Medicine SECTION OF CARDIAC PACING and ELECTROPHYSIOLOGY OUTPATIENT VISIT DATE March 01, 2025 OUTPATIENT VISIT TYPE ESTABLISHED PRIMARY CARE PHYSICIAN: Samm Thompson [address] [id number] REFERRING PHYSICIAN: Nj Wei [id number] [facility] [id number] CHIEF COMPLAINT: PVCs and atrial fibrillation HISTORY [...] MR), persistent atrial fibrillation, CVA s/p tPA (2021), COPD, CKD III, carotid stenosis s/p right [...] loop diuretics. He was discharged back to [facility] for further care on 10/17/24. He remains [...] (gastroesophageal reflux disease) Heart failure, acute systolic ([facility]) Hypertension Hypothyroid Myocardial infarct, old Occlusion and stenosis of carotid artery without mention of cerebral infarction Prostate cancer ([facility]) 2020 PVC (premature ventricular contraction) PVD (peripheral vascular disease) ([facility]) 11/17/2012 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 Systolic heart failure (HCC) Thyroid disorder Type 2 diabetes mellitus with diabetic chronic kidney disease, unspecified CKD stage, unspecified whether intermediate insulin use ([facility]) 04/26/2023 Ventricular tachycardia (HCC) 04/28/2012 PAST SURGICAL [...] Artery Disease Father Heart Attack Father fatal ID at age 77 Ischemic Heart Disease Brother CABGx6 first at age 72 No Known Problems Maternal Grandmother No Known Problems Maternal Grandfather No Known Problems Paternal Grandmother No Known Problems Paternal Grandfather No Known Problems Daughter No Known Problems Daughter No Known Problems Daughter other (Other) Other paternal cousin at age 50 of ID ALLERGIES: ALLERGIES Allergen Reactions Latex Rash Adhesive [...] 1 tablet by mouth once daily. Rachael Calvitti, RN PHYSICAL EXAMINATION: BP 105/76 Pulse 106 Ht 182.9 cm (6') Wt 78.9 kg (174 lb) BMI 23.60 kg/m CARDIOVASCULAR MEDICINE TESTING: Device check 03/01/25: In-Office Device Evaluation OPD with Dr. Wei * Device type: BST dual lead ICD * Presenting Rhythm: AF/VS-AREA SALES MANAGER * Underlying Rhythm: AF with variable ventricular [...] or infection. * Other Diagnostics: *AP 1%, AREA SALES MANAGER <1%, AT/AF burden 1% (however likely higher d/t DDIR programming)* Tachycardia: AF * Stored EGMs are consistent with or suggestive of Atrial Fibrillation, intermittent RVR observed on stored episodes * AT/AF [place]: 1% * OAC: Eliquis Appropriate VT Therapy: [...] is moderately to severely decreased. - Percutaneous [id number] repair of the mitral valve with 1 [...] exam performed on 09/23/2024 [facility] comp[facility] to V-paced last echo PLAN [...] has been otherwise adherent. He lives in [place] and has three daughters who assist with [...] edema. ASSESSMENT/PLAN 1. 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 2. 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 S/P CABG (coronary [...] for now symptomatically 5. VT (ventricular tachycardia) ([facility]) History of VT managed with ICD. Previous [...] kidney disease, unspecified CKD stage, unspecified whether rn long term care insulin use (HCC) Stage 3b chronic kidney [...] medication adherence to reduce stroke risk. 9. rn long term care (current) use of anticoagulants Currently on Eliquis 2.5 mg BID. Missed one dose on February 20. - Reinforce the importance of taking Eliquis as prescribed to minimize stroke risk. - Monitor for any signs of bleeding or adverse effects. I personally interviewed, confirmed and edited the above information as obtained by others. CONTACT INFORMATION: Nj Wei MD Recording using [employer] software for draft documentation of the visit was discussed with the patient/authorized outside sales account representative; all questions welcomed and answered. Patient/authorized outside sales account representative agreed to proceed documented in this encounter [facility] 02-23-2025 Telephone encounter Note Images from the original note were not included. Carmela Fernandes MD Schroll, Shirley; [facility] J3-4 Opd [id number] minutes ago (3:43 PM) Please call Mr. Antonio and ask him how much potassium supplementation he is taking. His potassium has returned at 3.2 and will likely need to double whatever he is taking. Thanks Micaela Fernandes MD MSc Called and spoke with the patient. Relayed message from above. Patient verbalized understanding. Mary Bourgeois RN February 23, 2025 4:18 PM [facility] 02-23-2025 Miscellaneous Notes Images from the original note were not included. Carmela Fernandes MD Schroll, Shirley; i J3-4 Opd [id number] minutes ago (3:43 PM) Please call Mr. Antonio and ask him how much potassium supplementation he is taking. His potassium has returned at 3.2 and will likely need to double whatever he is taking. Thanks Micaela Fernandes MD MSc Called and spoke with the patient. Relayed message from above. Patient verbalized understanding. Mary Bourgeois RN February 23, 2025 4:18 PM .Outside labs dated 02/22/25 from [facility], scanned into [employer] for review documented in this encounter [facility] 02-23-2025 Telephone encounter Note .Outside labs dated 02/22/25 from [facility], scanned into [employer] for review [facility] 12-21-2024 Note [facility] 12-21-2024 History of Present illness Narrative [...] No Headaches: No [facility] [place] Department of Cardiovascular Medicine VIRTUAL VIDEO VISIT ESTABLISHED OUTPATIENT VISIT SERVICE DATE: 12/21/2024 Patient: José Miguel Antonio Jr. SERVICE TIME: 1:12 PM : 1940 This is a virtual video visit. It required patient-provider interaction for the medical decision making as documented below. José Miguel Antonio Titus has consented to this video encounter. I have communicated my name and active licensure. The patient's identity and physical location were verified at the time of this visit. Either the patient or their legal outside sales account representative has been informed of the [...] discharge course detailed below 09-17-24 [facility]-24 [facility] [place] Nauseous, not eating, thought possible Norovirus admitted to [facility] ED 09-29-24 to 10-17-24 [facility] Poor Liver Function and worsening Kidney Function (sepsis? Mexiletine?) LABS UPON ADMISSION: AST 767 ALT 492 POTASSIUM 3.9 BUN 74 CREATININE 4.06--> 2.1 PARACENTESIS done on 09/30/24 removed 5-6L LIMITED ECHO (TTE) 1.. EF 10% LIMITED ECHO (TTE) 10.14. EF 5% Stopped Mexiletine upon admission then restarted on 10/10 150mg twice a day Switched diuretic to Bumex 10-17-24 to 11-04-24 [facility] 11-04-24 to present [facility] 3.8.25 [facility] ED VISIT possible pneumonia. Gave a push of Bumex CURRENT MEDICATION: Levothyroxine 88 mcg Metoprolol Succ XL 12.5mg (2 25 mg tablet) (IF BLOOD PRESSURE HIGH ENOUGH) Mexiletine 150 mg capsule 2X Day Eliquis 2.5mg tablet 2X Day Bumex 2 mg tablet 2X Day [id number] mg tablet Potassium chloride ER 20 mEq [...] (premature ventricular contraction) PVD (peripheral vascular disease) ([facility]) 11/17/2012 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 Systolic heart failure (HCC) Thyroid disorder Type 2 diabetes mellitus with diabetic chronic kidney disease, unspecified CKD stage, unspecified whether rn long term care insulin use (HCC) 04/26/2023 Ventricular tachycardia (HCC) [...] Artery Disease Father Heart Attack Father fatal ID at age 77 Ischemic Heart Disease Brother CABGx6 first at age 72 No Known Problems Maternal Grandmother No Known Problems Maternal Grandfather No Known Problems Paternal Grandmother No Known Problems Paternal Grandfather No Known Problems Daughter No Known Problems Daughter No Known Problems Daughter other (Other) Other paternal cousin at age 50 of ID Social History Tobacco Use Smoking status: Former [...] 2024 1:12 PM documented in this encounter [facility] 12-03-2024 Telephone encounter Note Date: December 03, [...] back with her decision. Ema Rankin RN [facility] 12-03-2024 Miscellaneous Notes Date: December 03, 2024 [...] She will call back with her decision. Eam Rankin RN Contacted the patient's daughter. She reports after local physician had a discussion with Dr. Wei he was restarted on mexiletine 150 mg BID. The patient has developed stomach issues on mexiletine. He is unable to eat. He tries to take mexiletine with food. He has lost weight. Will discuss with Dr. Wei. Ema Rankin RN December 03, 2024 Patient Contact Number: [phone] (home) [phone] (cell) Patient last seen within the last year: Yes Reason For Call: Medication Issue/Question: Patient's daughter called stated the patient is still in a [facility] and was recently placed back on mexiletine. Please contact Charu [phone] Thank you Adm Galilea Cdl B Driver documented in this encounter [facility] 12-03-2024 Telephone encounter Note Contacted the patient's daughter. She reports after local physician had a discussion with Dr. Wei he was restarted on mexiletine 150 mg BID. The patient has developed stomach issues on mexiletine. He is unable to eat. He tries to take mexiletine with food. He has lost weight. Will discuss with Dr. Wei. Ema Rankin RN [facility] 12-03-2024 Telephone encounter Note December 03, 2024 Patient Contact Number: [phone] (home) [phone] (cell) Patient last seen within the last year: Yes Reason For Call: Medication Issue/Question: Patient's daughter called stated the patient is still in a mcfp and was recently placed back on mexiletine. Please contact Charu [phone] Thank you Raquel Fletcher, Adm Cdl B Driver [facility] 12-03-2024 History of Present illness Narrative Images [...] the condition, treatment strategy, rationale and objectives. [place] agreement for palliative care measures. Recommend Amlactin [...] Ayana Evans DPM documented in this encounter [facility] 12-03-2024 Instructions Ayana Evans DPM - 12/03/2024 10:45 AM EDT As noted documented in this encounter [facility] 10-17-2024 Note [facility] 10-17-2024 Note [facility] 10-16-2024 Note [facility] 10-16-2024 Note [facility] 10-16-2024 Note [facility] 10-16-2024 Note [facility] 10-16-2024 Note [facility] 10-15-2024 Note [facility] 10-15-2024 Note [facility] 10-15-2024 Note [facility] 10-15-2024 Note [facility] 10-15-2024 Note [facility] 10-15-2024 Note [facility] 10-15-2024 Note [facility] 10-15-2024 Note [facility] 10-15-2024 Note [facility] 10-14-2024 Note [facility] 10-14-2024 Note [facility] 10-14-2024 Note [facility] 10-14-2024 Note [facility] 10-14-2024 Note [facility] 10-14-2024 Note [facility] 10-13-2024 Note [facility] 10-13-2024 Note [facility] 10-13-2024 Note [facility] 10-13-2024 Note [facility] 10-12-2024 Note [facility] 10-12-2024 Note [facility] 10-12-2024 Note [facility] 10-12-2024 Note [facility] 10-12-2024 Note [facility] 10-12-2024 Note [facility] 10-11-2024 Note [facility] 10-10-2024 Note [facility] 10-09-2024 Note [facility] 10-09-2024 Note [facility] 10-09-2024 Note [facility] 10-09-2024 Note [facility] 10-09-2024 Note Occupational Therapy Name: José Miguel Antonio Date of : 1940 Today's Date: 10/09/24 Pt is unable to be seen for therapy at this time secondary to requested to have tx later this afternoon Check No Charge Time attempted: 1120 [facility] 10-09-2024 Note [facility] 10-09-2024 Note [facility] 10-09-2024 Note [facility] 10-08-2024 Note [facility] 10-08-2024 Telephone encounter Note EP STAFF ADDENDUM: [...] Wei MD October 08, 2024 4:08 PM [facility] Work Phone: 10-08-2024 Miscellaneous Notes EP STAFF [...] 2024 4:08 PM documented in this encounter [facility] 10-08-2024 Note [facility] 10-08-2024 Note [facility] 10-08-2024 Note [facility] 10-07-2024 Note [facility] 10-07-2024 Note [facility] 10-07-2024 Note [facility] 10-07-2024 Note [facility] ([facility] is unable to accept the patient. Alternative placement options are being considered. [facility] 10-07-2024 Telephone encounter Note Contacted the patient's daughter. The patient is currently admitted to [place]. His liver enzymes are elevated. Mexiletine has been discontinued. He continues to have PVCs. She wants recommendations. Instructed her to have the treating staff contact Dr. Wei. Ema Rankin RN [facility] 10-07-2024 Miscellaneous Notes Contacted the patient's daughter. The patient is currently admitted to [facility]. His liver enzymes are elevated. Mexiletine has been discontinued. He continues to have PVCs. She wants recommendations. Instructed her to have the treating staff contact Dr. Wei. Ema Rankin, RN October 07, 2024 Patient Contact Number: [phone] Patient last seen within the last year: Yes Reason For Call: Medication Issue/Question: Physician:Nj Wei MD Patient was informed that non-urgent calls may be returned within the next three business days. Yes The patients daughter Charu called to report that her dad is admitted to [facility] as of 09/29/24 due to not eating, nausea. They believe he was having a reaction to Mexiletine. He is having PVC's due to he was off the medication. The facility needs to know today if he can go back Amiodarone or a lower does of Mexiletine. Frank David documented in this encounter [facility] 10-07-2024 Telephone encounter Note October 07, 2024 Patient Contact Number: [phone] Patient last seen within the last year: Yes Reason For Call: Medication Issue/Question: Physician:Nj Wei MD Patient was informed that non-urgent calls may be returned within the next three business days. Yes The patients daughter Charu called to report that her dad is admitted to [facility] as of 09/29/24 due to not eating, nausea. They believe he was having a reaction to Mexiletine. He is having PVC's due to he was off the medication. The facility needs to know today if he can go back Amiodarone or a lower does of Mexiletine. [place], Admin [facility] 10-06-2024 Note [facility] 10-06-2024 Note [facility] 10-06-2024 Note [facility] 10-06-2024 Note [facility] 10-06-2024 Note [facility] 10-05-2024 Note [facility] 10-05-2024 Note [facility] 10-05-2024 Note [facility] 10-04-2024 Note [facility] 10-04-2024 Note [facility] 10-03-2024 Note [facility] 10-03-2024 Note [facility] 10-03-2024 Note [facility] 10-03-2024 Note [facility] 10-02-2024 Note [facility] 10-02-2024 Note [facility] 10-02-2024 Note [facility] 10-02-2024 Note [facility] 10-02-2024 Note [facility] 10-02-2024 Note [facility] 10-01-2024 Note [facility] 10-01-2024 Note Updates sent to Molly Vidal. KANDI following [facility] 10-01-2024 Note [facility] 10-01-2024 Note [facility] 10-01-2024 Note [facility] 10-01-2024 Note [facility] 09-30-2024 Note Satisfactory for romy luation. Examination of the ThinPrep slide and cell block reveals benign mesothelial cells, inflammation and proteinaceous debris. [facility] Comment on above: Performed By: #### L [id number] ####[facility] ([facility])[address] [place] [address] 09-30-2024 Note [facility] 09-30-2024 Note [facility] 09-30-2024 Note [facility] 09-29-2024 Note [facility] 09-29-2024 Note [facility] 09-25-2024 Note [facility] 09-25-2024 Note [facility] 09-24-2024 Note [facility] 09-23-2024 Note [facility] 09-23-2024 Note [facility] 09-22-2024 Note [facility] 09-22-2024 Note [facility] 09-21-2024 Note [facility] 09-21-2024 History of Present illness Narrative [...] TIME: 1:21 PM documented in this encounter [facility] 09-21-2024 Note [facility] 09-21-2024 Note [facility] 09-21-2024 Note [facility] 09-20-2024 Note [facility] 09-20-2024 Note [facility] 09-19-2024 Note [facility] 09-19-2024 Note [facility] 09-18-2024 Note [facility] 09-18-2024 Note [facility] 09-18-2024 Note [facility] 09-18-2024 Note In-Office Device Romy luation DUAL LEAD ICD EVALUATION: *Room: [facility] * Presenting Rhythm: /VS * Underlying Rhythm: [...] below under Scanned Documents . [facility] 09-17-2024 Note [facility] 09-17-2024 Note HNO ID: [id number] Author: YOSELIN VALLEJO RT(R) Service: ? Author Type: Technologist Type: Progress Notes Filed: 09/17/2024 15:48 Note Text: xray: chest [facility] 09-17-2024 Telephone encounter Note Recent ICD remote shows patient received an ICD shock yesterday 09/16/24 and had 20 other VT episodes treated with ATP. Patient was hospitalized locally at [facility] 09/12-09/16/24 for edema and volume overload. Diuretics [...] are agreeable and will be coming to [facility] Main ED. [facility] 09-17-2024 Miscellaneous Notes Recent ICD remote shows patient received an ICD shock yesterday 09/16/24 and had 20 other VT episodes treated with ATP. Patient was hospitalized locally at [facility] 09/12-09/16/24 for edema and volume overload. Diuretics [...] are agreeable and will be coming to [facility] Main ED. documented in this encounter [facility] 09-11-2024 Telephone encounter Note Spoke with patient: He has been taking torsemide 20 mg BID with additional tablet as needed. He will be take 40 mg for his afternoon dose today. Dr. Nirmal reid with taking torsemide 40 mg BID. Follow up with lab work mid last week. Ernestina Alvarez RN September 11, 2024 1:22 PM [facility] 09-11-2024 Miscellaneous Notes Spoke with patient: He [...] José Miguel Antonio JrTitus Patient Contact Number: [phone] (home) [phone] (cell) Date of last office visit: 08/19/2024 [...] Yes Martha Prado documented in this encounter [facility] 09-10-2024 Telephone encounter Note Called the patient [...] Springer RN September 10, 2024 2:08 PM [facility] 09-10-2024 Telephone encounter Note September 10, 2024 Name: José Miguel Antonio Jr. Patient Contact Number: [phone] (home) [phone] (cell) Date of last office visit: 08/19/2024 [...] next three business days. Yes Martha Prado [facility] 09-07-2024 Telephone encounter Note Spoke to patient's daughter. Let her know we would update Dr Wei for next steps. She notes that her father said his feet were swollen, red and leaking . Advised to update Dr Fernandes and to have PCP look at feet. Winsome Ivory RN [facility] 09-07-2024 Miscellaneous Notes Spoke to patient's daughter. Let her know we would update Dr Wei for next steps. She notes that her father said his feet were swollen, red and leaking . Advised to update Dr Fernandes and to have PCP look at feet. Winsome Ivory RN September 07, 2024 Patient Contact Number: [phone] (home) [phone] (cell) Patient last seen within the last year: Yes Reason For Call: Follow-up Questions: Patient's daughter Charu called stated the patient started amiodarone on 08/31 and he has broken out severely from the medication rash started on 09/03. They contacted the nurse reconciliation accountant and was advised to stop the medication and is feeling better. Please contact Charu [phone] Thank you Adm Galilea Cdl B Driver documented in this encounter [facility] 09-07-2024 Telephone encounter Note September 07, 2024 Patient Contact Number: [phone] (home) [phone] (cell) Patient last seen within the last year: Yes Reason For Call: Follow-up Questions: Patient's daughter Charu called stated the patient started amiodarone on 08/31 and he has broken out severely from the medication rash started on 09/03. They contacted the nurse reconciliation accountant and was advised to stop the medication and is feeling better. Please contact Charu [phone] Thank you Adm Galilea Cdl B Driver [facility] 09-03-2024 Telephone encounter Note Contacted the patient. He reports at the time of the event he was on a call that made him upset. He denies any symptoms during the event. Ema Rankin RN [facility] 09-03-2024 Miscellaneous Notes Contacted the patient. He reports at the time of the event he was on a call that made him upset. He denies any symptoms during the event. Ema Rankin RN September 03, 2024 Patient Contact Number: [phone] (home) [phone] (cell) Patient last seen within the last year: Yes Reason For Call: Follow-up Questions: Patient called stated he recalls what he was doing at the time he was agitated on a phone call. Thank you Adm Galilea Cdl B Driver Contacted the patient. He feels ok. He [...] mildly tachy when in AF AP 2% AREA SALES MANAGER 15% documented in this encounter [facility] 09-03-2024 Telephone encounter Note September 03, 2024 Patient Contact Number: [phone] (home) [phone] (cell) Patient last seen within the last year: Yes Reason For Call: Follow-up Questions: Patient called stated he recalls what he was doing at the time he was agitated on a phone call. Thank you Adm Galilea Cdl B Driver [facility] 09-03-2024 Telephone encounter Note Contacted the patient. He feels ok. He was unaware of the episode on 09/02. Will review with Dr. Wei. Ema Rankin RN [facility] 09-03-2024 Telephone encounter Note ----- Message from Zahra Salgado RN sent at 09/03/2024 8:25 AM [facility] ----- Regarding: pt update Dr. Wei [...] mildly tachy when in AF AP 2% AREA SALES MANAGER 15% [facility] 08-28-2024 Telephone encounter Note Date: August 28, [...] x-ray and pulmonary function. Ema Rankin RN [facility] 08-28-2024 Telephone encounter Note ----- Message from [...] to review. Lisa Morrison RN Device [facility] 08-28-2024 Miscellaneous Notes Date: August 28, 2024 [...] murj for you to review. Thanks, Lisa RN Device [facility] documented in this encounter [facility] 08-19-2024 Note [facility] 08-19-2024 History of Present illness Narrative HOLTER MONITOR APPLICATION Patient Name: José Miguel Antonio Jr. Clinic Number: [id number] Chest is cleansed with alcohol Skin prep [...] or 48 hours 6.) Call with problems [phone] Patient expresses good verbal understanding of instructions Jose Khan documented in this encounter [facility] 08-19-2024 Instructions Carmela Fernandes MD - 08/19/2024 2:08 PM EST -Blood work today -will consider spironolactone 12.5 mg daily pending blood work -You have about 5 extra pounds on you -will add you on 10/05/2024 as in-person visit -48hr holter documented in this encounter [facility] 08-19-2024 Note [facility] 08-19-2024 History of Present illness Narrative Images from the original note were not included. [facility] [place] [facility] SECTION OF HEART FAILURE and CARDIAC TRANSPLANT MEDICINE OUTPATIENT VISIT DATE August 19, 2024 OUTPATIENT VISIT TYPE Established Patient PRIMARY CARE PHYSICIAN: Samm Thompson [address] [place] [address] CHIEF COMPLAINT: HFrEF NURSING INTAKE (Patient s [...] (gastroesophageal reflux disease) Heart failure, acute systolic ([facility]) Hypertension Hypothyroid Myocardial infarct, old Occlusion and stenosis of carotid artery without mention of cerebral infarction Prostate cancer ([facility]) 2020 PVC (premature ventricular contraction) PVD (peripheral vascular disease) ([facility]) 11/17/2012 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 Systolic heart failure ([facility]) Thyroid disorder Type 2 diabetes mellitus with diabetic chronic kidney disease, unspecified CKD stage, unspecified whether rn long term care insulin use ([facility]) 04/26/2023 Ventricular tachycardia ([facility]) 04/28/2012 PAST SURGICAL HISTORY Procedure [...] Artery Disease Father Heart Attack Father fatal ID at age 77 Ischemic Heart Disease Brother CABGx6 first at age 72 No Known Problems Maternal Grandmother No Known Problems Maternal Grandfather No Known Problems Paternal Grandmother No Known Problems Paternal Grandfather No Known Problems Daughter No Known Problems Daughter No Known Problems Daughter other (Other) Other paternal cousin at age 50 of ID ALLERGIES: ALLERGIES Allergen Reactions Latex Rash Adhesive [...] Take 100 mg by mouth once daily. 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 Give 1 tablet by mouth every 24 hours for give with 15mg =75mg total thyroid (BATTERY TEST ENGINEER THYROID) 15 mg tablet Take 1 tablet [...] maximal dimension of 4.3 cm. - Percutaneous fwiw-zy-mxik repair of the mitral valve with 1 [...] non-medical management as above. Paulina Fernandes MD [facility] Section Of Heart Failure and Cardiac Transplant Medicine [facility] [place] [facility] Desk [address] [place] [address] documented in this encounter [facility] 08-19-2024 History of Present illness Narrative Images from the original note were not included. [facility] [place] Jose Martin Silva Department of Cardiovascular Medicine SECTION OF CARDIAC PACING and ELECTROPHYSIOLOGY OUTPATIENT VISIT DATE August 19, 2024 OUTPATIENT VISIT TYPE ESTABLISHED PRIMARY CARE PHYSICIAN: Samm Thompson [address] [place] [address] REFERRING PHYSICIAN: No referring provider defined for [...] (gastroesophageal reflux disease) Heart failure, acute systolic ([facility]) Hypertension Hypothyroid Myocardial infarct, old Occlusion and stenosis of carotid artery without mention of cerebral infarction Prostate cancer ([facility]) 2020 PVC (premature ventricular contraction) PVD (peripheral vascular disease) ([facility]) 11/17/2012 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 Systolic heart failure ([facility]) Thyroid disorder Type 2 diabetes mellitus with diabetic chronic kidney disease, unspecified CKD stage, unspecified whether intermediate insulin use ([facility]) 04/26/2023 Ventricular tachycardia ([facility]) 04/28/2012 PAST SURGICAL HISTORY Procedure [...] Artery Disease Father Heart Attack Father fatal ID at age 77 Ischemic Heart Disease Brother CABGx6 first at age 72 No Known Problems Maternal Grandmother No Known Problems Maternal Grandfather No Known Problems Paternal Grandmother No Known Problems Paternal Grandfather No Known Problems Daughter No Known Problems Daughter No Known Problems Daughter other (Other) Other paternal cousin at age 50 of ID ALLERGIES: ALLERGIES Allergen Reactions Latex Rash Adhesive [...] mg by mouth two times a day. 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 Give 1 tablet by mouth every 24 hours for give with 15mg =75mg total thyroid (BATTERY TEST ENGINEER THYROID) 15 mg tablet Take 1 tablet [...] with Atrial Fibrillation and AFL * AT/AF [place]: 2% * On Eliquis. Non-sustained Ventricular Tachycardia [...] maximal dimension of 4.3 cm. - Percutaneous lmjx-bm-lbjo repair of the mitral valve with 1 [...] 10:33 PM This note was generated using [employer] recognition system. Please excuse any typographical errors. documented in this encounter [facility] 08-19-2024 Note [facility] 08-18-2024 Telephone encounter Note August 18, 2024 Name: José Miguel Antonio Jr. Patient Contact Number: [phone] (home) [phone] (cell) Date of last office visit: 01/10/2024 Reason For Call: Other Issue: New order is needed for the patient to return to Cardiac Rehab at [facility]. The patient needs a new referral / order as he has stopped and started and had some hospitalizations in between. The patient is coming for visit with Dr. Fernandes on 08/19/24. A new order can be faxed to [phone]. Physician: Paulina Fernandes MD Patient was informed that non-urgent calls may be returned within the next three business days. Yes Hillary Maria [facility] 08-18-2024 Miscellaneous Notes August 18, 2024 Name: José Miguel Antonio Jr. Patient Contact Number: [phone] (home) [phone] (cell) Date of last office visit: 01/10/2024 Reason For Call: Other Issue: New order is needed for the patient to return to Cardiac Rehab at [facility]. The patient needs a new referral / order as he has stopped and started and had some hospitalizations in between. The patient is coming for visit with Dr. Fernandes on 08/19/24. A new order can be faxed to [phone]. Physician: Paulina Fernandes MD Patient was informed that non-urgent calls may be returned within the next three business days. Yes Hillary Maria documented in this encounter [facility] 08-17-2024 Telephone encounter Note Contacted the patient. He is currently taking torsemide. She believes his abdomen is swollen. His weight is the same. He is not having SOB. Instructed her to take the patient to the ED if he is having worsening symptoms. Instructed her to contact Dr. Fernandes's office. Transferred her to Dr. Fernandes's office. Ema Rankin RN [facility] 08-17-2024 Miscellaneous Notes Contacted the patient. He [...] RN August 17, 2024 Patient Contact Number: [phone] (home) [phone] (cell) Patient last seen within the last year: Yes Reason For Call: Follow-up Questions: Patient's daughter Charu called stated the patient is retaining water and she would like to know if this is something that can be addressed at the visit or should she count Dr. Fernandes's office? Please advise [phone] Thank you Adm Galilea Cdl B Driver documented in this encounter [facility] 08-17-2024 Telephone encounter Note August 17, 2024 Patient Contact Number: [phone] (home) [phone] (cell) Patient last seen within the last year: Yes Reason For Call: Follow-up Questions: Patient's daughter Charu called stated the patient is retaining water and she would like to know if this is something that can be addressed at the visit or should she count Dr. Fernandes's office? Please advise [phone] Thank you Adm Galilea Cdl B Driver [facility] 08-14-2024 Telephone encounter Note Images from the original note were not included. Carmela Fernandes MD Alfonsi, Dominique; [facility] J3-4 Opd Nurses; Rubén Bucio MD; Ep [...] Lo RN August 14, 2024 5:06 PM [facility] 08-14-2024 Miscellaneous Notes Images from the original note were not included. Carmela Fernandes MD Alfonsi, Dominique; [facility] J3-4 Opd Nurses; Rubén Bucio MD; Ep [...] to 5. Please assist. Thank you, Pablito Baldwin documented in this encounter [facility] 08-14-2024 Telephone encounter Note Patient advised he is having blood in his stool and is worried his Eliquis is causing this because his dosage was uppsed from 2.5 to 5. Please assist. Thank you, Pablito Baldwin [facility] 08-14-2024 Telephone encounter Note OPENED IN ERROR [facility] 08-14-2024 Miscellaneous Notes OPENED IN ERROR documented in this encounter [facility] 08-03-2024 Telephone encounter Note Returned phone call from Charu and informed her we do not have the results of his 48 Hour holter at this time. I will discuss with out holter department to see if they received the monitor. Kinga Guy RN [facility] 08-03-2024 Miscellaneous Notes Returned phone call from Charu and informed her we do not have the results of his 48 Hour holter at this time. I will discuss with out holter department to see if they received the monitor. Kinga Guy RN August 03, 2024 Patient Contact Number: [phone] (home) [phone] (cell) Patient last seen within the last year: Yes Reason For Call: Test Results Patient's daughter Charu called requesting to review the results of the patient's monitor. Please advise Charu can be reached [phone] Thank you Adm Galilea Cdl B Driver documented in this encounter [facility] 08-03-2024 Telephone encounter Note August 03, 2024 Patient Contact Number: [phone] (home) [phone] (cell) Patient last seen within the last year: Yes Reason For Call: Test Results Patient's daughter Charu called requesting to review the results of the patient's monitor. Please advise Charu can be reached [phone] Thank you Adm Galilea Cdl B Driver [facility] 07-30-2024 Telephone encounter Note 1. Have you [...] Pt instructed to contact 24-hour nurse hotline [phone] for any questions or concerns. Pt verbalized understanding. PD nurse confirmed/verified patient's and full name. All clear, closing statement given. Cullen Calvert RN [facility] 07-30-2024 Miscellaneous Notes 1. Have you noticed [...] Pt instructed to contact 24-hour nurse hotline [phone] for any questions or concerns. Pt verbalized understanding. PD nurse confirmed/verified patient's and full name. All clear, closing statement given. Cullen Calvert RN documented in this encounter [facility] 07-27-2024 Note [facility] 07-27-2024 History of Present illness Narrative HOLTER MONITOR APPLICATION Patient Name: José Miguel Antonio JrTitus Clinic Number: [id number] Chest is cleansed with alcohol Skin prep [...] or 48 hours 6.) Call with problems [phone] OR [phone] Patient expresses good verbal understanding of instructions TECHNOLOGIST Meghan documented in this encounter [facility] 07-26-2024 Note [facility] 07-26-2024 Note [facility] 07-25-2024 Note [facility] 07-24-2024 Note [facility] 07-24-2024 Note [facility] 07-23-2024 Note [facility] 07-23-2024 Note [facility] 07-22-2024 Note [facility] 07-22-2024 Note [facility] 07-21-2024 Telephone encounter Note Called patient to inform him to go to [facility] ER for elevated troponin levels per Dr. Fernandes. Patient verbalized understanding and was being dropped off at [facility] ER by daughter. Mary Bourgeois RN July 21, 2024 2:09 PM [facility] 07-21-2024 Miscellaneous Notes Called patient to inform him to go to [facility] ER for elevated troponin levels per Dr. Fernandes. Patient verbalized understanding and was being dropped off at [facility] ER by daughter. Mary Bourgeois RN July 21, 2024 2:09 PM documented in this encounter [facility] 06-02-2024 Telephone encounter Note deferred Patient's name appears on the PRO [place] Report for a PHQ-9 score of 16. Patient completed this questionnaire prior to his appointment with Cardiology. Oncology SW assessment deferred. MARIAM Ryder [facility] 06-02-2024 Miscellaneous Notes deferred Patient's name appears on the PRO [place] Report for a PHQ-9 score of 16. Patient completed this questionnaire prior to his appointment with Cardiology. Oncology SW assessment deferred. MARIAM Ryder documented in this encounter [facility] 06-02-2024 Telephone encounter Note Patient seen by Dr. Nirmal CRUZ 06/01/2024. Irlanda Lo RN June 02, 2024 8:54 AM [facility] 06-02-2024 Miscellaneous Notes Patient seen by Dr. Nirmal CRUZ 06/01/2024. Irlanda Lo RN June 02, [...] spironolactone by Dr. Fernandes. Attempted to call [facility] [phone] but unable to reach nurse. left with office number [phone]. Irlanda Lo RN May 22, 2024 2:48 PM Karly from [facility] ([address]) is calling because patient wants to know if he should continue or stop farxiga. He is also wondering about spironolactone 12.5mg but his bp is low. These were his discharge orders from his recent hospital stay. Nurse and patient wanting clarity L/S:03/31/24 Karly # [phone] documented in this encounter [facility] 06-01-2024 Note [facility] 06-01-2024 History of Present illness Narrative [...] No Headaches: No Heart, Vascular & Thoracic [place] Department of Cardiovascular Medicine VIRTUAL VIDEO VISIT [...] visit. Either the patient or their legal outside sales account representative has been informed of the [...] cardiac history and that he follows with [facility] Cardiology, he was admitted to the Clinical [...] and tolerated it. He was transferred to [facility] at request of his family as he [...] (gastroesophageal reflux disease) Heart failure, acute systolic ([facility]) Hypertension Hypothyroid Myocardial infarct, old Occlusion and stenosis of carotid artery without mention of cerebral infarction Prostate cancer ([facility]) 2020 PVD (peripheral vascular disease) ([facility]) 11/17/2012 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 Systolic heart failure ([facility]) Thyroid disorder Type 2 diabetes mellitus with diabetic chronic kidney disease, unspecified CKD stage, unspecified whether intermediate insulin use ([facility]) 04/26/2023 Ventricular tachycardia ([facility]) [...] Artery Disease Father Heart Attack Father fatal ID at age 77 Ischemic Heart Disease Brother CABGx6 first at age 72 No Known Problems Maternal Grandmother No Known Problems Maternal Grandfather No Known Problems Paternal Grandmother No Known Problems Paternal Grandfather No Known Problems Daughter No Known Problems Daughter No Known Problems Daughter other (Other) Other paternal cousin at age 50 of ID Social History Tobacco Use Smoking status: Former [...] Take 1 tablet by mouth once daily. 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 Fernandes. Attempted to call [facility] [phone] but unable to reach nurse. left with office number [phone]. Irlanda Lo RN May 22, 2024 2:48 PM [facility] 05-20-2024 Telephone encounter Note Karly from [facility] ([address]) is calling because patient wants to know if he should continue or stop farxiga. He is also wondering about spironolactone 12.5mg but his bp is low. These were his discharge orders from his recent hospital stay. Nurse and patient wanting clarity L/S:03/31/24 Karly # [phone] [facility] 05-15-2024 Note [facility] 05-15-2024 Note [facility] 05-14-2024 Note [facility] 05-13-2024 Note [facility] 05-12-2024 Note [facility] 05-12-2024 Note [facility] 05-12-2024 Note [facility] 05-11-2024 Note [facility] 05-11-2024 Note [facility] 05-10-2024 Note [facility] 05-09-2024 Note HNO ID: [id number] Author: PETE PRATT RN Service: Care Management Author Type: Registered Nurse Type: Care Mgt Progress Note Filed: 05/09/2024 09:24 Note Text: CARE MANAGEMENT PROGRESS NOTE SERVICE DATE: 05/09/2024 SERVICE TIME: 9:24 AM LOS: 3 days Patient to be transferred to [facility] at 1pm via MMT. Informed accepting SN[facility] of transfer. SIGNATURE: Pete Pratt RN PATIENT NAME: José iMguel Antonio Jr. DATE: May 09, 2024 TIME: 9:23 AM PAGER/CONTACT #: [phone] [facility] 05-09-2024 Note HNO ID: [id number] Author: CARINA PARISI APRN.COMPUTER APPLICATIONS INSTRUCTOR Service: Hospital Medicine Author Type: Nurse Practitioner [...] Parisi APRN.CNP May 09, 2024 2:00 AM [facility] 05-08-[address] Fernandes called the daughter. Fuentes Springer RN May 08, 2024 5:15 PM [facility] 05-08-[address] Fernandes called the daughter. Fuentes Springer RN May 08, 2024 5:15 PM Called Charu and relayed message from Dr. Fernandse. While on the phone, daughter stated patient [...] is too tired. Please call her at [phone] Charu. Thank you, Sandeep documented in this encounter [facility] 05-08-2024 Note HNO ID: [id number] Author: JAMIE HEREDIA MD Service: Hospital Medicine Author Type: Physician Type: Progress Notes Filed: 05/08/2024 21:02 Note Text: DEPARTMENT OF HOSPITAL MEDICINE PROGRESS NOTE SERVICE DATE: 05/08/2024 SERVICE TIME: 6:01 PM Hospital Medicine/Primary Attending: Jamie Heredia MD NIGHT AND WEEKEND COVERAGE: GINA COVERAGE: Days: [phone], please contact via [employer] Nights: [phone] - 3rd floor: please page Hospitalist night cover [phone] - 4W: please page Hospitalist night cover #[phone] - 5th floor: please page CC Hospitalist night cover #[phone] - SDU (17:00 - 19:00): Please page #[phone] - SDU (19:00 - 07:00): Please call [facility] at [phone] Subjective INTERVAL HPI: Patient was seen and [...] L CEA was done by Neuro[facility]IR at [facility] Virtual follow up by Neurology on 03/18--> was told to keep ASA at 325 mg daily Telephone communication with neurology--> dc plavix and restarted xarelto in April 01 along with asa 325 mg Since March, noted steady drop in hgb as well as iron PCP in [place] started patient on IV iron infusions Was [...] and Airways Line Duration Peripheral 05/06/24 1706 [facility] Short Right Antecubital 20 Gauge 2 [...] artery disease involving coronary bypass graft of yuhaaviatam heart without angina pectoris (more content not included)... [facility] 05-08-2024 Note HNO ID: [id number] Author: PAULETTE ARMENDARIZ LISW Service: Care Management Author Type: Disability Aide Type: Care Mgt Progress Note Filed: 05/08/2024 13:53 Note Text: CARE MANAGEMENT PROGRESS NOTE SERVICE DATE: 05/08/2024 SERVICE TIME: 1344 LOS: 2 days Needs Prior to Discharge: Patient/Family [facility] accepted. [facility] does not have beds. Met with pt to discuss further. Pt states he was seen by GI today and is trying to decide if he wants to pursue with EGD and colonoscopy on Saturday per their recommendations. He was pleased to learn [facility] will accept but states he will put a call out to [place] to talk about bed availability. 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 After he talks with [place] he will make final decision. As he is straight medicare a precert would not be needed. Will need to do 7000 once decision is made and anticipated d/c is known. All 3 dtr's called into the room during conversation and were updated. One of his daughters will transport pt at discharge. Had offered hoarding resources resources yesterday but pt was not interested. KANDI/CM to follow. SIGNATURE: RINA Guerrero PATIENT NAME: José Miguel Antonio Jr. DATE: May 08, 2024 TIME: 1:44 PM PAGER/CONTACT #: [phone] [facility] 05-08-2024 Note HNO ID: [id number] Author: JESUSITA MELO CT Service: Radiology Author [...] PATIENT PRESENTS WITH AN IMPLANTABLE OR ATTACHED RUBBER COMPOUNDER SUPERVISOR: No RADIOLOGY DEPARTMENT: CT; Exam(s) Completed: Abdomen/Pelvis PERIPHERAL IV DATA: Not applicable SIGNED BY: KASSI RITCHIE May 08, 2024 1:33 PM [facility] 05-08-2024 Telephone encounter Note Called Charu and relayed message from Dr. Fernandes. While on the phone, daughter stated patient is in the hospital now and the physicians are planning an EGD and colonoscopy and daughter wants to proceed but would like Dr. Fernandes to comment on the plan. Fuentes Springer RN May 08, 2024 12:11 PM [facility] 05-08-2024 Telephone encounter Note Images from the [...] discussed with neurology team. Thanks, - Andreas [facility] 05-07-2024 Note HNO ID: [id number] Author: PAULETTE ARMENDARIZ LISW Service: Care Management Author Type: Disability Aide Type: Care Mgt Initial Assessment Filed: 05/07/2024 16:16 Note Text: CARE MANAGEMENT: ASSESSMENT AND DISCHARGE PLAN SERVICE DATE: May 07, 2024 SERVICE TIME: 1400 PCP: Samm Thompson MD Primary Contact: Extended Emergency Contact Information Primary Emergency Contact: Charu Cain Mobile Relation: Daughter Secondary Emergency Contact: [place] [address] [facility] Relation: Daughter Admission Status: Inpatient Insurance Provider: MEDICARE A AND B Discharge Planning requested by: Per Department Practice Potential Transition Plans Nursing Home Facility/Intermediate Care Facility;To Be Determined Advance Directives Current Advance Directive: None Apprentice Plant Attendant Attempted to Assist with AD Completion: Yes [...] Goal(s): General wellness, Ambulate a little better Rodeo of Choice Explained: Rodeo of Choice Given: Yes Level of Care Discussed: Nursing Home Facility Are you interested in bedside delivery of your medications? No Discharge Planning Participant(s): Patient Patient/Family Comments: Dtesperanza Pretty in room, and other dtr's Zcak [phone] on speaker phone Caregiver Assessment: Caregiver is ready, willing and able to meet the patient's needs as recommended by the inter-professional team: No Caregiver needed Transport at Discharge: Transportation Arrangements: Car Needs Prior to Discharge: Needs Prior to Discharge: Accepting Facility;To Be Determined Post-Acute Discharge Plan: Met with pt to provide support and assess for needs. Dtr, Maria De Jesus requested consult as house is [...] He has no intention of moving into retirement. Dtr's are trying to get him to consider moving to a trailer park and gettting rid of his cats. Pt is not interested in resources for hoarding at this time. Referrals sent in order to [facility]. 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 Does NOT want [place] where his brother is staying. KANDI/CM to follow. SIGNATURE: RINA Guerrero PATIENT NAME: José Miguel Antonio Jr. DATE: May 07, 2024 TIME: 4:07 PM CONTACT #: [phone] [facility] 05-07-2024 Note HNO ID: [id number] Author: JAMIE HEREDIA MD Service: Hospital Medicine Author Type: Physician Type: Progress Notes Filed: 05/08/2024 05:31 Note Text: DEPARTMENT OF HOSPITAL MEDICINE PROGRESS NOTE SERVICE DATE: 05/07/2024 SERVICE TIME: 10:23 AM Hospital Medicine/Primary Attending: Jamie Heredia MD NIGHT AND WEEKEND COVERAGE: [place] COVERAGE: Days: [phone], please contact via Epic SecureMessage Nights: [phone] - 3rd floor: please page CC Hospitalist night cover [phone] - 4W: please page CC Hospitalist night cover #[phone] - 5th floor: please page CC Hospitalist night cover #[phone] - SDU (17:00 - 19:00): Please page #[phone] - SDU (19:00 - 07:00): Please call [facility] at [phone] Subjective INTERVAL HPI: Patient was seen and [...] L CEA was done by Neuro[facility]IR at [facility] Virtual follow up by Neurology on 03/18--> was told to keep ASA at 325 mg daily Telephone communication with neurology--> dc plavix and restarted xarelto in April 01 along with asa 325 mg Since March, noted steady drop in hgb as well as iron PCP in [place] started patient on IV iron infusions Was [...] and Airways Line Duration Peripheral 05/06/24 1706 [facility] Short Right Antecubital 20 Gauge <1 [...] artery disease involving coronary bypass graft of yuhaaviatam heart without angina pectoris Systolic heart failure (HCC) 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 [facility] 05-06-2024 Note HNO ID: [id number] Author: JORGE ENCISO RT(R) Service: ? Author [...] PATIENT PRESENTS WITH AN IMPLANTABLE OR ATTACHED RUBBER COMPOUNDER SUPERVISOR: No RADIOLOGY DEPARTMENT: General X-ray: Exam(s) Completed: Chest X-Ray PERIPHERAL IV DATA: Not applicable SIGNED BY: RT Lisbet(R) May 06, 2024 5:01 PM [facility] 05-06-2024 Telephone encounter Note Patients daughter thinks he is on too many blood thinners, sob, doesn't go to cardiac rehab because he is too tired. Please call her at [phone] Charu. Thank you, Sandeep [facility] Work Phone: 04-30-2024 Note [facility] 04-30-2024 History of Present illness Narrative Summary: KCCQ-12 AMB TVT FOLLOWUP: Follow Up Type: Phone Call Call Attempt: Final Attempt Call Status: Patient Refused Patient answered call back and now states refusal. documented in this encounter [facility] 04-29-2024 Note [facility] 04-29-2024 History of Present illness Narrative Summary: KCCQ-12 AMB TVT FOLLOWUP: Follow Up Type: Phone Call Call Attempt: 1st Attempt Call Status: Left Message and Asked to be called back Patient returned call but asked for a call back tomorrow documented in this encounter [facility] 04-06-2024 Instructions Yung Andrade MD - 04/06/2024 3:28 PM EDT Advance Directives Every adult has the right to direct their own medical care. Having an advance directive on file helps to ensure that you receive the care you want if a medical condition or injury renders you unable to make decisions or communicate. Forms can be found on the [facility] Advance Directives site. You do not need a manpower development advisor to complete advance directive documents. [email or web address] [email or web address] Talking about end-of-life issues is difficult, but it truly is a gift to your loved ones. We suggest using The Conversation Project (theconversationproject.org) to help guide you through discussing and [...] to your next appointment, or email to [email or web address] as an attachment in either PDF, TIFF, or JPEG format. You can also mail to: [facility] Information Management, Ab7 Advance Directive Processing [address] [place], [place] [address] documented in this encounter [facility] 04-06-2024 Telephone encounter Note Call to daughter EC Charu, no answer, LVM with return number. Tiffany Lam RN April 06, 2024 11:25 AM [facility] 04-06-2024 Miscellaneous Notes Call to daughter EC Charu, no answer, LVM with return number. Tiffany Lam RN April 06, 2024 11:25 AM Name of Caller: Charu Cain Relationship to patient: patient's daughter Reason for Call: Patient Daughter is calling just looking for clarification and new mediation instruction. Please reach out when available. Callback number: [phone] Janice Timmons documented in this encounter [facility] 04-03-2024 Telephone encounter Note Name of Caller: Charu Cain Relationship to patient: patient's daughter Reason for Call: Patient Daughter is calling just looking for clarification and new mediation instruction. Please reach out when available. Callback number: [phone] Janice Timmons [facility] 04-02-2024 Instructions Paulina Fernandes MD - 04/02/2024 10:23 AM EDT -Follow-up blood work 04/03 documented in this encounter [facility] 04-01-2024 Telephone encounter Note Unable To Reach Patient Patient appears on the PRO [place] Report for a PHQ-9 score of 11. Questionnaire was completed on 03/31. SW called and left a VM encouraging this Patient to kelsey back if additional support was desired. SW will remain available and will follow up as appropriate. MARIAM Ryder [facility] 04-01-2024 Miscellaneous Notes Unable To Reach Patient Patient appears on the PRO [place] Report for a PHQ-9 score of 11. Questionnaire was completed on 03/31. SW called and left a VM encouraging this Patient to kelsey back if additional support was desired. SW will remain available and will follow up as appropriate. MARIAM Ryder documented in this encounter [facility] 03-31-2024 History of Present illness Narrative Answers [...] Muscle aches: No Heart, Vascular & Thoracic [place] Department of Cardiovascular Medicine VIRTUAL VIDEO VISIT [...] visit. Either the patient or their legal outside sales account representative has been informed of the [...] without mention of cerebral infarction Prostate cancer ([facility]) 2020 PVD (peripheral vascular disease) ([facility]) 11/17/2012 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 Systolic heart failure ([facility]) Thyroid disorder Type 2 diabetes mellitus with diabetic chronic kidney disease, unspecified CKD stage, unspecified whether intermediate insulin use ([facility]) 04/26/2023 Ventricular tachycardia ([facility]) 04/28/2012 PAST SURGICAL HISTORY Procedure [...] Artery Disease Father Heart Attack Father fatal ID at age 77 Ischemic Heart Disease Brother CABGx6 first at age 72 No Known Problems Maternal Grandmother No Known Problems Maternal Grandfather No Known Problems Paternal Grandmother No Known Problems Paternal Grandfather No Known Problems Daughter No Known Problems Daughter No Known Problems Daughter other (Other) Other paternal cousin at age 50 of ID Social History Tobacco Use Smoking status: Former [...] directed. (Patient not taking: Reported on 03/30/2024) BATTERY TEST ENGINEER THYROID 15 mg tablet Take 15 mg [...] 2024 3:55 PM documented in this encounter [facility] 03-31-2024 History of Present illness Narrative Radiation Oncology - Follow Up Note PATIENT NAME: José Miguel Antonio Jr. PATIENT DIAGNOSIS: Prostate adenocarcinoma, initial PSA 8.14, biopsy [place] score 3 + 4 = 7 (grade [...] directed. (Patient not taking: Reported on 03/30/2024) BATTERY TEST ENGINEER THYROID 15 mg tablet Take 15 mg [...] Andrade MD cc: Samm Thompson MD [address] [place] [address] documented in this encounter [facility] 03-31-2024 Nurse Note AUA= 5 [facility] 03-31-2024 Nurse Note AUA= 5 documented in this encounter [facility] 03-30-2024 Telephone encounter Note March 30, 2024 Patient Contact Number: [phone] Patient last seen within the last year: Yes Date of last office visit: 03/30/2024 Reason For Call: PT requested Patient Enrollment Form be filled out for Xarelto approval. Form has been scanned and uploaded. Physician: Efren Brady MD Patient was informed that non-urgent calls may be returned within the next three business days. Yes Sandy Sales [facility] 03-30-2024 Miscellaneous Notes March 30, 2024 Patient Contact Number: [phone] Patient last seen within the last year: Yes Date of last office visit: 03/30/2024 Reason For Call: PT requested Patient Enrollment Form be filled out for Xarelto approval. Form has been scanned and uploaded. Physician: Efren Brady MD Patient was informed that non-urgent calls may be returned within the next three business days. Yes Sandy Sales documented in this encounter [facility] 03-30-2024 History of Present illness Narrative Heart and Vascular [place] Jose Martin Silva Department of Cardiovascular Medicine [...] without mention of cerebral infarction Prostate cancer ([facility]) 2020 PVD (peripheral vascular disease) ([facility]) 11/17/2012 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 Systolic heart failure ([facility]) Thyroid disorder Type 2 diabetes mellitus with diabetic chronic kidney disease, unspecified CKD stage, unspecified whether rn long term care insulin use ([facility]) 04/26/2023 Ventricular tachycardia ([facility]) 04/28/2012 Surgical History: PAST SURGICAL [...] Artery Disease Father Heart Attack Father fatal ID at age 77 Ischemic Heart Disease Brother CABGx6 first at age 72 No Known Problems Maternal Grandmother No Known Problems Maternal Grandfather No Known Problems Paternal Grandmother No Known Problems Paternal Grandfather No Known Problems Daughter No Known Problems Daughter No Known Problems Daughter other (Other) Other paternal cousin at age 50 of ID Social History: Social History Tobacco Use Smoking [...] (NITROQUICK) 0.4 mg SL tablet as directed. BATTERY TEST ENGINEER THYROID 15 mg tablet Take 15 mg [...] ABNORMAL ECG Confirmed by MD JIMÉNEZ TAMANNA ([id number]) on 03/05/2024 11:10:51 AM Prior records were [...] to twice daily. He follows with a wafer fabrication operator locally but would prefer to have one. I have placed a referral. Efren Brady MD, [facility] negative notcher, [facility] Staff, Section of Cardiovascular Imaging Department of Cardiovascular Medicine Heart and Vascular [place] [facility] ADDENDUM: Echo reviewed. There is new echodensity in the posterior LV suspicious for LV thrombus. Discussed findings with patient and daughter. He will be starting Xarelto tomorrow as per neurosx recommendations. He knows that he needs a repeat echo in a month or two. He prefers to do it locally and will share the results with us Efren Brady MD, FACC Staff, Section of Cardiovascular Imaging Department of Cardiovascular Medicine Heart and Vascular [place] [facility] documented in this encounter [facility] 03-18-2024 History of Present illness Narrative Images from the original note were not included. [facility] Virtual Visit Consultation is requested by: No referring provider defined for this encounter. PCP: Samm Thompson [address] [place] [address] CEREBROVASCULAR HISTORY José Miguel Antonio Jr. is [...] COPD, former smoker, who presented to the [facility] ED on 02/26/24 with acute flashing lights in the left eye followed by complete blindness for 2-3 minutes that spontaneously resolved. Imaging at [facility] included CTH showing Probable right parietal low-attenuation within the deep white matter extending to the cortex. I favor a subacute or chronic infarct. This represents change from prior study. CTA H/N showed, severe hemodynamically significant stenosis of the left internal carotid artery origin similar prior examination with estimated stenosis of 99% . Patient subsequently transferred to [facility] under Stroke Neurology for further workup and management of suspected symptomatic L ICA with critical stenosis. Upon arrival to [facility], patient was HDS and NIH 0. He [...] visit. Either the patient or their legal outside sales account representative has been informed of the risks and benefits of -- and alternatives to -- treatment through a remote evaluation and consents to proceed with the evaluation remotely. 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 ([facility]) 09/03/2022 Dyslipidemia GERD (gastroesophageal reflux disease) Heart failure, acute systolic ([facility]) Hypertension Hypothyroid Myocardial infarct, old Occlusion and stenosis of carotid artery without mention of cerebral infarction Prostate cancer ([facility]) 2020 PVD (peripheral vascular disease) ([facility]) 11/17/2012 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 Systolic heart failure ([facility]) Thyroid disorder Type 2 diabetes mellitus with diabetic chronic kidney disease, unspecified CKD stage, unspecified whether rn long term care insulin use ([facility]) 04/26/2023 Ventricular tachycardia ([facility]) 04/28/2012 PAST SURGICAL HISTORY Procedure [...] Artery Disease Father Heart Attack Father fatal ID at age 77 Ischemic Heart Disease Brother CABGx6 first at age 72 No Known Problems Maternal Grandmother No Known Problems Maternal Grandfather No Known Problems Paternal Grandmother No Known Problems Paternal Grandfather No Known Problems Daughter No Known Problems Daughter No Known Problems Daughter other (Other) Other paternal cousin at age 50 of ID Social History Tobacco Use Smoking status: Former [...] (NITROQUICK) 0.4 mg SL tablet as directed. BATTERY TEST ENGINEER THYROID 15 mg tablet Take 15 mg [...] vibration. Coordination: Rapid alternating movements symmetric bilaterally. Wykrat-jg-oufr, ddzu-vj-zqgz without dysmetria bilaterally. Reflexes: 2+/4 reflexes symmetric [...] coordination (not separately reported) SIGNATURE Luís Skinner APRN.COMPUTER APPLICATIONS INSTRUCTOR CC No referring provider defined for this encounter. Samm Thompson [address] [phone] documented in this encounter [facility] 03-06-2024 History of Present illness Narrative Cerebrovascular Center Automotive Artist Transitional Care Management Phone Call A transitional [...] Provider Location Dept Phone 03/11/2024 11:[address] [facility] [phone] 03/18/2024 2:05 PM LUÍS SKINNER [place] [facility] [phone] 03/24/2024 1:00 PM LAB [facility] [phone] 03/30/2024 1:30 PM EKGJ1-4 MAIN [facility] [phone] 03/30/2024 2:00 PM IMAGING CLINICIAN [place] [phone] 03/30/2024 2:30 PM EFREN BRADY Bldg [phone] 03/30/2024 3:30 PM ECHO J1-5 CARD ISAAC [place] [phone] 03/31/2024 1:15 PM Yung ANDRADE [facility] [phone] 03/31/2024 1:30 PM [facility] [phone] Reviewed and patient plans on attending appointment. [...] of the call. Ema Lyn RN Nurse Automotive Artist, Cerebrovascular Center March 06, 2024 11:58 AM documented in this encounter [facility] 03-02-2024 Note Date of Procedure 03/02/2024. Opal Polisher Information Victorian Literature Professor: GABI. Start time: 2:50 PM. Stop time: [...] asymptomatic R carotid stenosis (s/p R CEA '), HTN, CAD/ID s/p CABG, HFrEF (LVEF 28% 02/19/24), severe MR (02/15/24-02/19/24 admission for MVR) , Atrial fibrillation (on rivaroxaban), PVD, COPD, remote TOB (<20 years), T2DM, CKD, prostate CA, hypothyroidism 02/26/24 admission with [facility] amaurosis fugax transferred to [facility] 03/02 for further care. Neurosurgery is consulted for carotid revascularization. Patient states he was watching TV on 02/25 when he noted squiggles in his field of vision that progressed to vision loss. Per report, vision loss lasted x 2 minutes and self-resolved. He presented to [facility] ([place], [place]). CTH negative for acute findings, but CTA demonstrated high grade MELIA stenosis. He was initiated on heparin infusion and transferred to [facility] for further care. US carotid on admission demonstrates MELIA stenosis 70-99%. Patient also had + TCD emboli monitoring (5MEEs) in [facility]. - VISUAL FIELD 24-2 OU (BOTH [...] its relevant components. Patient reports understanding. Susi Whitehead, VAN documented in this encounter [facility] 02-28-2024 Telephone encounter Note Called patients daughter. Unable to provide timing on a bed, but provided therapeutic communication. Charu has no further questions at this time. Consuelo Gambino RN [facility] 02-28-2024 Miscellaneous Notes Called patients daughter. Unable [...] and Date of . ( José Miguel Larry Antonio Jr., 1940). Yes Number to return call [phone] Reason for Call: Patient Question/Update: Patient's daughter would like to know the status of her dad preadmission details. Daughter states patient has been waiting since February 26. Please call her at the above number. Thank you calling [facility]. You will receive a return call within 48 hours ( or 2 business days if close to the weekend). If you feel that this is an urgent issue and needs immediate attention, it is recommended that you contact your primary care provider office or proceed to your nearest Urgent Care Center of Emergency Room ED for evaluation/treatment. documented in this encounter [facility] 02-28-2024 Telephone encounter Note CV PHONE Name of caller : Charu Relationship to patient : Daughter If not self Will need patient permission to release results or disclose health information with called documented in fyi. Patient identified by Name and Date of . ( José Miguel Antonio , 1940). Yes Number to return call [phone] Reason for Call: Patient Question/Update: Patient's daughter would like to know the status of her dad preadmission details. Daughter states patient has been waiting since February 26. Please call her at the above number. Thank you calling [facility] Neurological [place]. You will receive a return call within 48 hours ( or 2 business days if close to the weekend). If you feel that this is an urgent issue and needs immediate attention, it is recommended that you contact your primary care provider office or proceed to your nearest Urgent Care Center of Emergency Room ED for evaluation/treatment. [facility] Work Phone: 02-27-2024 Telephone encounter Note Patient's daughter phoned. She stated that her father called earlier in the evening with stroke -like symptoms- loss of vision in one eye that returned, squiggley lines . He was taken to the ED and is in the observation unit. She would like him to be transferred to [facility] - told her to ask for a transfer. Shannon Mcnair APRN.COMPUTER APPLICATIONS INSTRUCTOR [facility] Work Phone: 02-27-2024 Miscellaneous Notes Patient's daughter phoned. She stated that her father called earlier in the evening with stroke -like symptoms- loss of vision in one eye that returned, squiggley lines . He was taken to the ED and is in the observation unit. She would like him to be transferred to [facility] - told her to ask for a transfer. Shannon Mcnair APRN.DOROTHY documented in this encounter [facility] 02-27-2024 History of Present illness Narrative Vanesa Fellow Plan of Care Received [facility] transfer request from [facility] in [facility] (not located in [facility] Spoke to ED physician Dr. Guido for [...] COPD, former smoker, who presents to the [facility] ED with acute flashing lights in [...] hypoperfusion. Plan: - Level 1 transfer to [facility] RNF. Asked the OSH to update [...] can be finalized once patient arrives to [facility] Aravind Arriaga MD Vascular Neurology Fellow, PGY-5 Supervising stroke staff: Dr. Millard documented in this encounter [facility] 02-17-2024 History of Present illness Narrative Images from the original note were not included. Head and Neck [place] [facility], [facility] Maxillofacial Prosthetics CHIEF [...] ACTIVE PROBLEM LIST Atherosclerotic Heart Disease of [place] Coronary Artery With Other Forms of Angina Pectoris ([facility]) SUMMARY Hyperlipidemia Preop Testing Heart Failure, Acute Systolic ([facility]) Carotid Stenosis Atrial Fib/Flutter, Transient Occlusion and Stenosis of Carotid Artery Without Mention of Cerebral Infarction S/P Cabg (Coronary Artery Bypass Graft) Sweating Coronary Artery Disease Involving Coronary Bypass Graft of [place] Heart Without Angina Pectoris Systolic Heart Failure ([facility]) Pvd (Peripheral Vascular Disease) ([facility]) Syncope Stroke (Cerebrum) (Hcc) Acute On Chronic Combined Systolic and Diastolic Congestive Heart Failure (Hcc) Carotid Stenosis, Asymptomatic, Bilateral Type 2 Diabetes Mellitus With Diabetic Chronic Kidney Disease, Unspecified Ckd Stage, Unspecified Whether Fpc Insulin Use (Hcc) Malnutrition of Moderate Degree ([facility]) Stage 3b Chronic Kidney Disease (Hcc) Dyspnea, [...] (NITROQUICK) 0.4 mg SL tablet as directed. BATTERY TEST ENGINEER 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 aspirin, [...] Soft Tissues: Clear saliva extruded from bilateral [place]'s and Sari's ducts. Tongue soft and non-tender [...] be done with local anesthesia.(Confirmed) Please call [phone] to schedule for tooth extractions once patient [...] Dior Nj DDS documented in this encounter [facility] 02-14-2024 History of Present illness Narrative Study name: EMPOWER Trial IRB# [id number] PI: Andrés Savage Pt exited from trial--plan for commercial treatment. Psychiatric Tech: Krystal Richey Pager #: [phone] documented in this encounter [facility] 02-14-2024 History of Present illness Narrative I [...] is needed on pre-op day. Priscilla Castañeda APRN.[facility]. Patient to be admitted prior on 02/14 and will remain in the house for the procedure. Please schedule José Miguel Antonio Jr., [phone] for Mitral Valve Transcatheter [id number]-dj-[id number] Repair (M-AZAEL) w/ [place] MitraClip Procedure on: 02/18/[address] Structural lab schedule on : 02/18/24 at 10:30am CPT: 05648 Diag: I34.0 JUNIOR ANALYST: Dr Brady Performing Physician: Dr rain OR: 81 1st Surgeon: TBD MERRITT schedule- intra/op Patient also needs INSURANCE PRECERTIFICATION SURVIVAL RATE GREATER THAN 1 YEAR____yes___(LOOKING FOR A YES) EF ___20__ Thank-you. Request sent to scheduling. Priscilla Castañeda APRN.DOROTHY documented in this encounter [facility] 02-13-2024 History of Present illness Narrative Multidisciplinary [...] Priscilla Castañeda APRN.CNP documented in this encounter [facility] 02-12-2024 Telephone encounter Note Attempted to contact daniel Box. Clinical has been discussed with Dr. Brady. Patient should be admitted to the hospital for optimization and reassess by ENT. Fuentes Arana APRN.CNS [facility] 02-12-2024 Miscellaneous Notes Attempted to contact daniel [...] recommendation she will have him come to [place]. Unfortunately, based upon his symptoms, worsening MR on ECHO and increasing BNP, he may require admission for optimization. In the meantime will also try to obtain a sooner ENT consult. Fuentes Arana APRN.CNS Patients daughter called with concerns regarding the patient and the study that he is a part of. She would like to speak with you regarding her concerns, Daniel Box [phone]. Clover documented in this encounter [facility] 02-12-2024 Telephone encounter Note I spoke with [...] recommendation she will have him come to [place]. Unfortunately, based upon his symptoms, worsening MR on ECHO and increasing BNP, he may require admission for optimization. In the meantime will also try to obtain a sooner ENT consult. Fuentes Arana APRN.PARDEEP [facility] 02-12-2024 Telephone encounter Note Patients daughter called with concerns regarding the patient and the study that he is a part of. She would like to speak with you regarding her concerns, Daughter Charu [phone]. Clover [facility] Work Phone: 02-12-2024 History of Present illness [...] the next couple of days. Fuentes Arana APRN.CLAY M[employer]ER documented in this encounter [facility] 02-11-2024 Telephone encounter Note Study name: EMPOWER Trial IRB# [id number] PI: Andrés Savage Pt's gfr dropped--spoke to Dr. Fernandes. Plan for med changes with f/u labs this Saturday. Spoke with pt's daughter. Plan to pause trial enrollment as he doesn't fit with this gfr. Will reassess after labs. Also informed that clinical team is re-reviewing imaging for clips. Psychiatric Tech: Krystal Richey Pager #: [phone] [facility] 02-11-2024 Miscellaneous Notes Study name: EMPOWER Trial IRB# [id number] PI: Andrés Savage Pt's gfr dropped--spoke to Dr. Fernandes. Plan for med changes with f/u labs this Saturday. Spoke with pt's daughter. Plan to pause trial enrollment as he doesn't fit with this gfr. Will reassess after labs. Also informed that clinical team is re-reviewing imaging for clips. Psychiatric Tech: Krystal Richey Pager #: [phone] documented in this encounter [facility] 02-05-2024 History of Present illness Narrative Study [...] were performed per protocol by a blinded vp construction: Berta Barry NYHA completed: Yes KCCQ-12 questionnaire [...] up requirements/schedule Materials dispensed: Coordinator Contact Card Psychiatric Tech: Berta Barry [phone] documented in this encounter [facility] 01-30-2024 History of Present illness Narrative Summary: 18-600 Empower Study Called pt's daughter Charu to give update on Empower study, and to schedule screening visit. documented in this encounter [facility] 01-14-2024 Telephone encounter Note January 14, 2024 Name: José Miguel Antonio Jr. Patient Contact Number: [phone] - daughter's cell - Charu Cain Date of last office visit: 01/10/2024 Reason For Call: Medication Issue/Question: Patient's daughter is asking if after reviewing labs are there any medication changes? Please call daughter's phone - Charubj Cain Physician: Paulina Fernandes MD Patient was informed that non-urgent calls may be returned within the next three business days. Yes Hillary Martinez [facility] 01-14-2024 Miscellaneous Notes January 14, 2024 Name: José Miguel Antonio Jr. Patient Contact Number: [phone] - daughter's valentin - Charu Cain Date of last office visit: 01/10/2024 Reason For Call: Medication Issue/Question: Patient's daughter is asking if after reviewing labs are there any medication changes? Please call daughter's phone - Charu Cain Physician: Paulina Fernandes MD Patient was informed that non-urgent calls may be returned within the next three business days. Yes Hillary Martinez documented in this encounter [facility] 01-10-2024 Evaluation note Diagnosis IRB 18-600 Empower Assessment of the CARILLON Mitral Contour System in Treating Functional Mitral Regurgitation Associated with Heart Failure PI: Hussein- Primary documented in this encounter [facility]04-26-2024 History of Present illness Narrative* Krystal Richey [...] provided informed consent for review previously via [employer]. Study related questions were addressed. Pt agreeable [...] Brady info on card. Krystal Richey RN [phone] [facility] Instructions* Patient Instructions* Paulina Fernandes MD - 01/10/2024 11:19 AM EDT -blood work today -screening for EMPOWER study -Will likely start low dose ACEi or ARB after I review your labs [facility] History of Present illness Narrative* Paulina Fernandes MD - 01/10/2024 10:15 AM EDT Images from the original note were not included. Heart [facility] [place] [facility] SECTION OF HEART FAILURE and CARDIAC TRANSPLANT MEDICINE OUTPATIENT VISIT DATE January 10, 2024 OUTPATIENT VISIT TYPE Consultation PRIMARY CARE PHYSICIAN: Samm Thompson [address] [place] [address] CHIEF COMPLAINT: HFrEF, ischemic CM, severe FMR NURSING INTAKE (Patient s concerns and/or recent hospitalizations/ER visits): José Miguel Antonio Jr. is a 83 year old male from [place], [place] referred by Dr. Brady for GDMT. [...] (gastroesophageal reflux disease) Heart failure, acute systolic ([facility]) Hypertension Hypothyroid Myocardial infarct, old Occlusion and stenosis of carotid artery without mention of cerebral infarction Prostate cancer ([facility]) 2020 PVD (peripheral vascular disease) ([facility]) 11/17/2012 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 Systolic heart failure ([facility]) Thyroid disorder Type 2 diabetes mellitus with diabetic chronic kidney disease, unspecified CKD stage, unspecified whether intermediate insulin use ([facility]) 04/26/2023 Ventricular tachycardia ([facility]) 04/28/2012 PAST SURGICAL HISTORY Procedure [...] Artery Disease Father Heart Attack Father fatal ID at age 77 Ischemic Heart Disease Brother CABGx6 first at age 72 No Known Problems Maternal Grandmother No Known Problems Maternal Grandfather No Known Problems Paternal Grandmother No Known Problems Paternal Grandfather No Known Problems Daughter No Known Problems Daughter No Known Problems Daughter other (Other) Other paternal cousin at age 50 of ID ALLERGIES: ALLERGIES Allergen Reactions Latex Rash Adhesive [...] (NITROQUICK) 0.4 mg SL tablet as directed. BATTERY TEST ENGINEER 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 aspirin, [...] non-medical management as above. Paulina Fernandes MD [facility] Section Of Heart Failure and Cardiac Transplant Medicine Heart [facility] [place] [facility] Desk [id number] [place] [address] documented in this encounterChildren[facility] Evaluation note* Diagnosis IRB 18-600 Empower Assessment of the CARILLON Mitral Contour System in Treating Functional Mitral Regurgitation Associated with Heart Failure PI: Hussein- Primary documented in this encounter [facility]04-18-2024 Miscellaneous Notes* Telephone Encounter - Velma Hall [...] 02, 2024 2:58 PM documented in this encounterChildren[facility] History of Present illness Narrative* Krystal Richey [...] if he is optimized. Krystal Richey RN [phone] documented in this encounterChildren[facility] History of Present illness Narrative* Joeflor Krystal Diya - 01/01/2024 4:18 PM EDT Study name: EMPOWER Trial IRB# [id number] PI: Andrés Savage Contacted pt regarding above listed trial, as his daughter did not reach out to me today. He statedthat I should wait for her to call me. Reinforced hours and contact number. We will call him next week if she doesn't reach out. Psychiatric Tech: Krystal Richey Pager #: [phone] documented in this encounterChildren[facility] History of Present illness Narrative* Britta Richeymarin Keane - 12/30/2023 3:28 PM EDT IRB 18-600 [facility] Assessment of the CARILLON Mitral Contour [...] Follow up appointment added. Krystal Richey RN [phone] documented in this encounterChildren[facility] History of Present illness Narrative* Kristina Ceja APRN.COMPUTER APPLICATIONS INSTRUCTOR - 12/26/2023 4:38 PM EDT Multidisciplinary Cardiac Team Review TRANSCATHETER MITRAL and TRICUSPID THERAPIES (TMTT) The below documentation is based on a mitral / tricuspid valve team discussion amongst the multidisciplinary team Attendees: Dr. Rain, Dr. Savage, Dr. Martinez, Dr. Chaudhry, Dr. Hutson, Dr. Brady, Dr. Ventura, , Dr. Anguiano, Dr. Mccord, Dr. Clayton, Dr. Harry, Dr. Lock, Dr. Nathan, Dr. 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 Systolic heart failure (HCC) Thyroid disorder Type 2 diabetes mellitus with diabetic chronic kidney disease, unspecified CKD stage, unspecified whether intermediate insulin use ([facility]) 04/26/2023 Ventricular tachycardia ([facility]) 04/28/2012 Surgical History: PAST SURGICAL [...] Artery Disease Father Heart Attack Father fatal ID at age 77 Ischemic Heart Disease Brother CABGx6 first at age 72 No Known Problems Maternal Grandmother No Known Problems Maternal Grandfather No Known Problems Paternal Grandmother No Known Problems Paternal Grandfather No Known Problems Daughter No Known Problems Daughter No Known Problems Daughter other (Other) Other paternal cousin at age 50 of ID Social History: Social History Tobacco Use Smoking [...] (NITROQUICK) 0.4 mg SL tablet as directed. BATTERY TEST ENGINEER 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 aspirin, [...] CEA (2012) He was recently admitted to [place] in Sep and November with SANTILLAN - [...] to guide any procedure. Efren Brady MD, [facility] negative notcher, [facility] Staff, Section of Cardiovascular Imaging Department of Cardiovascular Medicine Heart [facility] [place] [facility] documented in this encounterChildren'[facility]04[facility] Miscellaneous Notes* Telephone Encounter - Sandy Sales - 12/17/2023 12:08 PM EDT December 17, 2023 Patient Contact Number: [phone] Patient last seen within the last year: Yes Date of last office visit: 12/12/2023 Reason For Call: Daughter called to verify okay for Mr. Antonio to start cardiac rehabilitation. Physician: Virgil Carrillo MD Patient was informed that non-urgent calls may be returned within the next three business days. Yes Sandy Albertelva documented in this encounterChildren'S [facility]03-28-2024 Instructions* Patient Instructions* Carmelina Ramos APRN.CNP - [...] [facility] [place] 03/31/2024 1:30 PM LAB HEM[facility]ANN[facility] [facility] [place] documented in this encounterChildren'[facility]03-[facility] History of Present illness Narrative* Carmelina Ramos, ANAND.COMPUTER APPLICATIONS INSTRUCTOR - 12/12/2023 1:30 PM EDT Images from the original note were not included. [facility] [place] [facility] Department of Cardiovascular Medicine SECTION OF CARDIOVASCULAR IMAGING OUTPATIENT VISIT DATE December 12, 2023 OUTPATIENT VISIT TYPE ESTABLISHED PRIMARY CARE PHYSICIAN: Samm Thompson [address] [place] [address] REFERRING PHYSICIAN: No referring provider defined for [...] He was admitted to the hospital in [place] on 11/18 for FVO, diuresed with IV [...] combined systolic and diastolic congestive heart failure ([facility]) 09/03/2022 Dyslipidemia GERD (gastroesophageal reflux disease) Heart failure, acute systolic ([facility]) Hypertension Hypothyroid Myocardial infarct, old Occlusion and stenosis of carotid artery without mention of cerebral infarction Prostate cancer ([facility]) 2020 PVD (peripheral vascular disease) ([facility]) 11/17/2012 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 Systolic heart failure ([facility]) Thyroid disorder Type 2 diabetes mellitus with diabetic chronic kidney disease, unspecified CKD stage, unspecified whether intermediate insulin use ([facility]) 04/26/2023 Ventricular tachycardia ([facility]) 04/28/2012 PAST SURGICAL HISTORY Procedure [...] Artery Disease Father Heart Attack Father fatal ID at age 77 Ischemic Heart Disease Brother CABGx6 first at age 72 No Known Problems Maternal Grandmother No Known Problems Maternal Grandfather No Known Problems Paternal Grandmother No Known Problems Paternal Grandfather No Known Problems Daughter No Known Problems Daughter No Known Problems Daughter other (Other) Other paternal cousin at age 50 of ID ALLERGIES: ALLERGIES Allergen Reactions Latex Rash Adhesive Tape (Keyanna* Rash MEDICATIONS: furosemide (LASIX) 40 mg tablet Take 40 mg by mouth once daily. Cholecalciferol, Vitamin D3, 25 mcg (1,000 unit) cap Take 1,000 Units by mouth as needed. nitroglycerin sublingual (NITROQUICK) 0.4 mg SL tablet as directed. BATTERY TEST ENGINEER 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 aspirin, [...] FOR LVH, MAY BE NORMAL VARIANT ( [place] product ) NONSPECIFIC INTRAVENTRICULAR BLOCK ABNORMAL ECG Confirmed by ANAM LUTZ MD ([id number]) on 11/21/2023 10:12:55 AM NT Pro BNP [...] He was admitted to the hospital in [place] on 11/18 for FVO, diuresed with IV [...] as scheduled in December -follow-up with local wafer fabrication operator as scheduled this month -pt has [...] Mn J dg 03/24/2024 1:00 PM [facility] SANAM ALSTON 03/31/2024 1:15 PM Yung Andrade MD [facility] [place] SAND[place] 03/31/2024 1:30 PM LAB [facility] [place] I personally interviewed, confirmed and edited the above information if obtained by others. CONTACT INFORMATION: Carmelina Ramos APRN.CNP documented in this encounterChildren'S [facility]03-12-2024 Miscellaneous Notes* Telephone Encounter - Germaine Moraels Mookie - 11/26/2023 3:30 PM EDT Patient's daughter called stating patient had been admitted to a hospital in [place] for fluid overload. Patient was given IV Lasix to remove the fluid. Local licensed loan officer assistant is planning a Mitral Valve Clip and want him to have the clip done sooner ratherthan later. Patient is wanting to discuss with Dr. Carrillo before he makes a decision. I advised the daughter, that I would schedule Mr. Antonio to see one of our BATTERY TEST ENGINEER's post discharge, butwould also let Dr. Carrillo know that he would like to speak with him regarding the MVR. Daughter understood, and stated that she would get [place] records and images sent to us. documented in this encounterChildren'S [facility]02-[facility] History of Present illness Narrative* Virgil Carrillo MD - 10/30/2023 9:00 AM EST Images from the original note were not included. Heart [facility] [place] Jose Martin Silva Department of Cardiovascular Medicine SECTION OF CARDIOVASCULAR IMAGING OUTPATIENT VISIT DATE October 30, 2023 OUTPATIENT VISIT TYPE ESTABLISHED PRIMARY CARE PHYSICIAN: Samm Thompson [address] [place] [address] REFERRING PHYSICIAN: Tiarra Lopez [address] [place] [id number] CHIEF COMPLAINT: Follow up HISTORY OF PRESENT [...] combined systolic and diastolic congestive heart failure ([facility]) 09/03/2022 Dyslipidemia GERD (gastroesophageal reflux disease) Heart failure, acute systolic ([facility]) Hypertension Hypothyroid Myocardial infarct, old Occlusion and stenosis of carotid artery without mention of cerebral infarction Prostate cancer ([facility]) 2020 PVD (peripheral vascular disease) ([facility]) 11/17/2012 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 Systolic heart failure ([facility]) Thyroid disorder Type 2 diabetes mellitus with diabetic chronic kidney disease, unspecified CKD stage, unspecified whether intermediate insulin use ([facility]) 04/26/2023 Ventricular tachycardia ([facility]) 04/28/2012 PAST SURGICAL HISTORY Procedure [...] Artery Disease Father Heart Attack Father fatal ID at age 77 Ischemic Heart Disease Brother CABGx6 first at age 72 No Known Problems Maternal Grandmother No Known Problems Maternal Grandfather No Known Problems Paternal Grandmother No Known Problems Paternal Grandfather No Known Problems Daughter No Known Problems Daughter No Known Problems Daughter other (Other) Other paternal cousin at age 50 of ID ALLERGIES: ALLERGIES Allergen Reactions Latex Rash Adhesive Tape (Keyanna* Rash MEDICATIONS: furosemide (LASIX) 40 mg tablet Take 40 mg by mouth once daily. Cholecalciferol, Vitamin D3, 25 mcg (1,000 unit) cap Take 1,000 Units by mouth as needed. nitroglycerin sublingual (NITROQUICK) 0.4 mg SL tablet as directed. BATTERY TEST ENGINEER 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 aspirin, [...] ?20 mL/minute/1.73 m2, N Engl J Med. 2020;383(15):6824-7886. This should be considered if his repeat GFR is stable. He is getting 1 locally on and will reach out to me with the results Follow-up here in 3 months with an echo to review the degree of MR and consider further management options. I am also recommending that he establish care with our heart failure team here at [facility] CONTACT INFORMATION: Virgil Carrillo MD, PhD, [facility] Staff, Section of Cardiovascular Imaging Department of Cardiovascular Medicine Heart [facility] [place] [facility] documented in this encounterChildren'S [facility]12[facility]-2023 Miscellaneous Notes* Telephone Encounter - Carina Sue - 08/27/2023 11:21 AM EST Left a message with the patient regarding the cancellation of 10/22/2023 with . Informed the patient of the new scheduled appointment on 10/29/2023 with . documented in this encounterChildren'S [facility]12-07-2023 Miscellaneous Notes* Telephone Encounter - Brenden Pollard - 08/22/2023 12:48 PM EST Call from pharmacy requesting refill. Requested Prescriptions Pending Prescriptions Disp Refills lisinopril (ZESTRIL) 5 mg tablet 90 tablet 3 Sig: Take 1 tablet by mouth once daily. Patient last seen 06-12-23 - Seen Alison Pollard documented in this encounterChildren'S [facility]08-11-2023 History of Present illness Narrative* Zahra Pierre MD - 04/26/2023 7:01 AM EDT Images from the original note were not included. Heart [facility] [place] [facility] Department of Cardiovascular Medicine SECTION OF CARDIOVASCULAR IMAGING OUTPATIENT VISIT DATE April 26, 2023 OUTPATIENT VISIT TYPE ESTABLISHED PRIMARY CARE PHYSICIAN: Samm Thompson [address] [place] [address] REFERRING PHYSICIAN: Samm Thompson [address] [facility] [address] CHIEF COMPLAINT: Follow up HISTORY OF PRESENT [...] (gastroesophageal reflux disease) Heart failure, acute systolic ([facility]) Hypertension Hypothyroid Myocardial infarct, old Occlusion and stenosis of carotid artery without mention of cerebral infarction Prostate cancer ([facility]) 2020 PVD (peripheral vascular disease) ([facility]) 11/17/2012 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 Systolic heart failure (HCC) Thyroid disorder Type 2 diabetes mellitus with diabetic chronic kidney disease, unspecified CKD stage, unspecified whether intermediate insulin use ([facility]) 04/26/2023 Ventricular tachycardia ([facility]) 04/28/2012 PAST SURGICAL HISTORY Procedure [...] Artery Disease Father Heart Attack Father fatal ID at age 77 other (atrial fibrillation) Mother other (CHF) Mother other (Other) Mother at age 96 Ischemic Heart Disease Brother CABGx6 first at age 72 No Known Problems Daughter No Known Problems Daughter No Known Problems Daughter other (Other) Other paternal cousin at age 50 of ID ALLERGIES: ALLERGIES Allergen Reactions Latex Rash Adhesive [...] ABNORMAL ECG Confirmed by MD VIET, HEBA ([id number]) on 06/26/2022 4:47:04 PM IMPRESSION AND PLAN: [...] on low- dose MARGARETTE inhibitor, beta-jasbir, and [id number], as well as low-dose torsemide. As previously noted, he has not tolerated sacubitril/valsartan or spironolactone. He was previously in phase 2 cardiac rehabilitation, but this was stopped when he had a minor stroke, and I think it would be good for him to reinitiate this. Follow-up in 6 months. CONTACT INFORMATION: Zahra Pierre MD 12:56 PM April 27, 2023 documented in this encounterChildren'S [facility]03-16-2023 Miscellaneous Notes* Telephone Encounter - Darlene Martinez - 11/29/2022 9:11 AM EDT Mr. Antonio decided not to move forward with surgery at this time and would like to cancel. Darlene Rajput Shirring Machine Operator documented in this encounterChildren'S Hospital [facility]03-16-2023 History of Present illness Narrative* John Jefferson MD - 11/29/2022 12:00 AM EDT NAME: JOSÉ MIGUEL ANTONIO JR. [facility] NO: [id number] DATE OF SERVICE: 11/29/2022 DATE OF : 1940 He let us know he has changed his mind about proceeding with his carotid surgery. We will wait to see what he says about moving ahead and when he wants to reschedule. John Jefferson M.D. SPL/089 Audio #: [id number] Date Dictated: 11/29/2022 14:25:32 Date Typed: 11/30/2022 09:05:53 Date Revised: documented in this encounterChildren'S Hospital [facility]02-15-2023 Miscellaneous Notes* Telephone Encounter - Lidia Mccloud - 10/31/2022 11:58 AM EST Called patient José Miguel to clarify surgery date and advise pre scheduled date requested, asked if I could look up his brothers surgery information, advised I could not my apologizes,to also check as he has EKG/Echo scheduled with Cardiac scheduled day after surgery ..Tiffany Clifton documented in this encounterChildren'S Hospital [facility]02-10-2023 History of Present illness Narrative* Zahra Pierre MD - 10/26/2022 11:38 AM EST Images from the original note were not included. [facility] [place] Jose Martin Silva Department of Cardiovascular Medicine SECTION OF CARDIOVASCULAR IMAGING OUTPATIENT VISIT DATE October 26, 2022 OUTPATIENT VISIT TYPE ESTABLISHED PRIMARY CARE PHYSICIAN: Samm Thompson MD [address] [place] [address] REFERRING PHYSICIAN: Zahra Pierre [address] [facility] [id number] CHIEF COMPLAINT: Follow up HISTORY OF PRESENT [...] (gastroesophageal reflux disease) Heart failure, acute systolic ([facility]) Hypertension Hypothyroid Myocardial infarct, old Occlusion and stenosis of carotid artery without mention of cerebral infarction Prostate cancer ([facility]) 2020 PVD (peripheral vascular disease) ([facility]) 11/17/2012 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 Systolic heart failure ([facility]) Thyroid disorder Ventricular tachycardia 04/28/2012 [...] Artery Disease Father Heart Attack Father fatal ID at age 77 other (atrial fibrillation) Mother other (CHF) Mother other (Other) Mother at age 96 Ischemic Heart Disease Brother CABGx6 first at age 72 No Known Problems Daughter No Known Problems Daughter No Known Problems Daughter other (Other) Other paternal cousin at age 50 of ID ALLERGIES: ALLERGIES Allergen Reactions Latex Rash Adhesive [...] FOR LVH, MAY BE NORMAL VARIANT ( [place] product ) NONSPECIFIC T WAVE ABNORMALITY ABNORMAL ECG Confirmed by MD VIET, [place] ([id number]) on 06/26/2022 4:47:04 PM IMPRESSION AND PLAN: [...] AM November 02, 2022 documented in this encounterChildren'S Hospital [facility]02-09-2023 Instructions* Patient Instructions* Zahra Pierre MD - 10/25/2022 4:11 PM EST OK for surgery. Do not take your lisinopril the day before and the day of surgery. Continue your other medications. Check blood work today. Return in 6 months with an echocardiogram. documented in this encounterChildren'S Hospital [facility]02-09-2023 History of Present illness Narrative* Josselin Claros RN - 10/25/2022 1:45 PM EST RADIOLOGY SERVICE PROGRESS NOTE SERVICE DATE: 10/25/2022 SERVICE TIME: 1:46 PM PATIENT IDENTITY VERIFICATION COMPLETED USING TWO (2) STANDARD IDENTIFIERS: Name and Date of confirmed by patient verbally and Name and Date of confirmed by identification band PATIENT GENDER DATA: male ALLERGIES: Reviewed and unchanged MEDICATIONS REVIEWED BY: Floor Coverings Salesperson and Josselin Claros RN PROCEDURE TYPE: [facility] PET Myocardial Imagin.4 mg of Regadenoson was administered at 1359 over 10 Seconds. Reversal agent used: None. and NM PET Myocardial Action Taken: POCT Blood Glucose 101 mg/dL at 1339 (QC = OK).9.2 mCi FDG-18 IV at 1416. POCT Blood Glucose 98 mg/dL at 1415 (QC = OK). Expiration date: 16JUN2025 Lot#: [id number] IV SITE: Ambulatory: A peripheral IV was started in the Right forearm with a Angio cath: 20 gauge. and A Saline lock was inserted per protocol POST EXAM PIV STATUS: Discontinued PATIENT DISCHARGED TO: Ambulatory patient, left [facility] department area. A Diagnostic radioactive procedure has taken place, with no further precautions necessary other than routine body substance precautions. More information regarding radiation safety can be found usingthis link: [email or web address] 20Diagnostic%20Nuclear%20Medicine%20Procedures.[email or web address] SIGNATURE: Josselin Claros RN PATIENT NAME: José Miguel Antonio Jr. DATE: October 25, 2022 TIME: 1:46 PM PAGER/CONTACT #: * Luigi Desai, Compass - 10/25/2022 1:45 PM EST RADIOLOGY SERVICE [...] 1416 PATIENT DISCHARGED TO: Ambulatory patient, left [facility] department area. A Diagnostic radioactive procedure has taken place, with no further precautions necessary other than routine body substance precautions. More information regarding radiation safety can be found usingthis link: [email or web address] 20Diagnostic%20Nuclear%20Medicine%20Procedures.pdf SIGNATURE: Madalyn Castro PATIENT NAME: José Miguel Antonio Jr. DATE: October 25, 2022 TIME: 1:32 PM PAGER/CONTACT #: documented in this encounterChildren'S Hospital Of [facility]01-17-2023 Nurse Note* Kathie Pavon RN - 10/02/2022 1:14 PM EST AUA 1.5 Kathie Pavon RN documented in this encounterChildren'S Hospital Of [facility]01-17-2023 History of Present illness Narrative* G Denilson [...] PSA 08/2021 36.2. and repeat biopsy showing Eufaula 7 (3+4) adenocarcinoma. 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 If all recommended orders are present route to P PET COMPOSITION PROFESSOR MC * Telephone Encounter - Darlene Moore - 09/07/2022 12:36 PM EST This form is used for MAIN CAMPUS APPOINTMENTS ONLY. Is this request for a Main [place] PET scan appointment? Yes: Antique Collector: Darlene LUNA Requesting Person (Zahra Pierre): [phone] Area Code + Phone/Pager: Who do we [...] day/next day medically urgent scans please call [phone] to expedite LVEF: LV Ejection Fraction (%) Date Value 06/06/2022 20 LVEF Free text: Yes, see above. Additional comments: N/A Send requests to P CARDIAC PET MD NERI documented in this encounterChildren'S Hospital [facility]12-19-2022 History of Present illness Narrative* John Jefferson MD - 09/03/2022 11:15 AM EST Images from the original note were not included. DATE: 07/01/2012 AGE: 72 SURGEON 1: John Jefferson M.D. OPERATION: Right carotid endarterectomy with bovine patch angioplasty. Heart [facility] V[facility] [place] DEPARTMENT OF VASCULAR SURGERY OUTPATIENT VISIT DATE September 03, 2022 OUTPATIENT VISIT TYPE CONSULTATION SERVICE DATE: 09/03/2022 SERVICE TIME: 11:53 AM PRIMARY CARE PHYSICIAN: Samm Thompson MD, MD REFERRING PROVIDER: Samm Thompson MD [address] [place] [address] Consult requested for an opinion regarding the [...] Of note, he was recently hospitalized in [place] on April for not feeling well. He has been grieving since his has passed in December. 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 without mention of cerebral infarction Prostate cancer ([facility]) 2020 PVD (peripheral vascular disease) ([facility]) 11/17/2012 Thyroid disorder Ventricular tachycardia [...] Artery Disease Father Heart Attack Father fatal ID at age 77 other (atrial fibrillation) Mother other (CHF) Mother other (Other) Mother at age 96 Ischemic Heart Disease Brother CABGx6 first at age 72 No Known Problems Daughter No Known Problems Daughter No Known Problems Daughter other (Other) Other paternal cousin at age 50 of ID MEDICATIONS: therapeutic multivitamin w/ iron (THERAGRAN-M) 27-0.4 [...] reviewed for today's visit: HUSSEIN Jefferson MD ([id number]) paged with results. Compared to prior study [...] flow noted. Abnormal signal suggests pre-steal. IMPRESSION: [facility] STAFF PHYSICIAN NOTE OF PERSONAL INVOLVEMENT [...] 2022 TIME: 2:20 PM documented in this encounterChildren'S Hospital Of [facility]11-16-2022 Miscellaneous Notes* Telephone Encounter - Ayana Jauregui - 08/01/2022 4:10 PM EST Mr Antonio's daughter called and she would like to schedule an appointment with pt advised to do so due to Carotid stenosis seen Dr jefferson in 2011 regarding right side now its the left side having issues Contact Name (If not the pt): daniel Box Home and cell number: [phone] Diagnosis: Carotid stenosis Kind Regards Ayana Jauregui documented in this encounterChildren'S Hospital [facility]11-14-2022 Miscellaneous Notes* Telephone Encounter - Mary Gross - 07/30/2022 3:11 PM EST Reason for call: Mr Antonio called,and he would like to schedule an appointment with Contact Name (If not the pt): Charu daughter Home and cell number: [phone] Diagnosis: Mitral valve insufficiency, unspecified etiology Kind Regards Mary documented in this encounterChildren'S Hospital [facility]11-09-2022 Miscellaneous Notes* Telephone Encounter - Luís Crandall - 07/25/2022 3:04 PM EST Images have been pushed through into Epic. Daughter would like you to call her to go over things as this was all completed after he saw you judy. She can be reached at [phone] Her name is Charu documented in this encounterChildren'S Hospital [facility]09-21-2022 History of Present illness Narrative* Zahra Pierre MD - 06/06/2022 3:28 PM EDT [facility] [place] Jose Martin Silva Department of Cardiovascular Medicine SECTION OF CARDIOVASCULAR IMAGING OUTPATIENT VISIT DATE June 06, 2022 OUTPATIENT VISIT TYPE ESTABLISHED PRIMARY CARE PHYSICIAN: Samm Thompson MD [address] [place] [address] CHIEF COMPLAINT: Follow up HISTORY OF PRESENT [...] without mention of cerebral infarction Prostate cancer ([facility]) 2020 PVD (peripheral vascular disease) ([facility]) 11/17/2012 Thyroid disorder Ventricular tachycardia (HCC) 04/28/2012 PAST SURGICAL HISTORY [...] Artery Disease Father Heart Attack Father fatal ID at age 77 other (atrial fibrillation) Mother other (CHF) Mother other (Other) Mother at age 96 Ischemic Heart Disease Brother CABGx6 first at age 72 No Known Problems Daughter No Known Problems Daughter No Known Problems Daughter other (Other) Other paternal cousin at age 50 of ID ALLERGIES: ALLERGIES Allergen Reactions Latex Rash Adhesive [...] any questions regarding this interpretation, please call [phone]. If you are unable to reach us at the number above, please feel free to contact [facility] at [phone]. IMPRESSION: Mr. Antonio is a 82 year [...] PM June 06, 2022 documented in this encounterChildren'S Hospital Of [facility]08-11-2022 History of Present illness Narrative* G Denilson Andrade MD - 04/26/2022 8:02 AM EDT AMBULATORY TELEPHONE VISIT José Miguel Antonio JrTitus has consented to this telephone encounter. Persons Present: patient Chief Complaint/Reason: Prostate adenocarcinoma, initial PSA 8, biopsy Eufaula score 3 + 4 = 7 (grade [...] minutes Yung Andrade MD documented in this encounterChildren'S Hospital [facility]04-20-2022 History of Present illness Narrative* Yung Andrade MD - 01/03/2022 12:00 AM EDT [facility] Radiation Oncology Department RADIATION ONCOLOGY - COMPLETION NOTE PATIENT: JOSÉ MIGUEL ANTONIO: 1940 DATES OF TREATMENT: 10/23/2021 to 12/18/2021 DIAGNOSIS: Prostate adenocarcinoma, initial PSA 8, biopsy Eufaula score 3 + 4 = 7 (grade [...] PSA. Staff Physician Denilson Andrade M.D. 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 and repeat biopsy showing Eufaula 7 (3+4) adenocarcinoma. AREA TREATED: Pelvis Prostate [...] / WST 21:22 PM documented in this encounterChildren'S Hospital [facility]03-28-2022 History of Present illness Narrative* Yung Andrade [...] discussed. Yung Andrade MD documented in this encounterChildren'S Hospital [facility]12-29-2021 History of Present illness Narrative* Devika Fishman [...] Intact, Site disposition Discontinued SIGNED BY: RT Karen([place]) September 13, 2021 2:54 PM documented in this encounterChildren'S Hospital [facility]12-29-2021 Nurse Note* Allyn Tong RN - 09/13/2021 [...] DATE: September 13, 2021 TIME: 2:57 PM [facility]12-29-2021 Nurse Note* Allyn Tong RN - 09/13/2021 [...] 2021 TIME: 2:57 PM documented in this encounterChildren'S Hospital [facility]01-24-2018 History of Past illness Narrative* Problem Noted [...] 56, Troponin T .37 on admission to [facility] Wide-complex tachycardia 04/28/2012 Overview: Presented to OSH 04/28/12 in setting acute ID with wide complex tachycardia SVT versus VT. Given adenosine x2 without effect, diltiazem bolus and infusion with no effect. Spontaneous conversion to NSR. [facility] short run of wide [facility] 04/28/2012 05/01/2012 Overview: Preoperative evaluation for CABG. Not ReDo -Carotids: Ordered -Vein Mapping: Ordered -Bedside PFTs: Ordered -Formal TTE: Ordered -CXR: Completed documented as of this encounter (statuses as of 10/30/2023) [facility]01-24-[facility] History of Past illness Narrative* Problem Noted [...] 56, Troponin T .37 on admission to [facility] Wide-complex tachycardia 04/28/2012 Overview: Presented to OSH 04/28/12 in setting acute ID with wide complex tachycardia SVT versus VT. Given adenosine x2 without effect, diltiazem bolus and infusion with no effect. Spontaneous conversion to NSR. Had short run of wide complex tachycardia [facility] 04/28/2012 05/01/2012 Overview: Preoperative evaluation for CABG. Not ReDo -Carotids: Ordered -Vein Mapping: Ordered -Bedside PFTs: Ordered -Formal TTE: Ordered -CXR: Completed documented as of this encounter (statuses as of 11/27/2023) [facility] History of Past illness Narrative* Problem Noted [...] 56, Troponin T .37 on admission to [facility] Wide-complex tachycardia 04/28/2012 Overview: Presented to OSH 04/28/12 in setting acute ID with wide complex tachycardia SVT versus VT. Given adenosine x2 without effect, diltiazem bolus and infusion with no effect. Spontaneous conversion to NSR. Had short run of wide complex tachycardia [facility] 04/28/2012 05/01/2012 Overview: Preoperative evaluation for CABG. Not ReDo -Carotids: Ordered -Vein Mapping: Ordered -Bedside PFTs: Ordered -Formal TTE: Ordered -CXR: Completed documented as of this encounter (statuses as of 11/27/2023) [facility] History of Past illness Narrative* Problem Noted [...] 56, Troponin T .37 on admission to [facility] Wide-complex tachycardia 04/28/2012 Overview: Presented to OSH 8/13/12 in setting acute ID with wide complex tachycardia SVT versus VT. Given adenosine x2 without effect, diltiazem bolus and infusion with no effect. Spontaneous conversion to NSR. Had short run of wide complex tachycardia [facility] 04/28/2012 05/01/2012 Overview: Preoperative evaluation for CABG. Not ReDo -Carotids: Ordered -Vein Mapping: Ordered -Bedside PFTs: Ordered -Formal TTE: Ordered -CXR: Completed documented as of this encounter (statuses as of 12/04/2023) [facility] History of Past illness Narrative* Problem Noted [...] 56, Troponin T .37 on admission to [facility] Wide-complex tachycardia 04/28/2012 Overview: Presented to OSH 04/28/12 in setting acute ID with wide complex tachycardia SVT versus VT. Given adenosine x2 without effect, diltiazem bolus and infusion with no effect. Spontaneous conversion to NSR. Had short run of wide complex tachycardia upon arrival to [facility] from [facility]. Pre-op evaluation 04/28/2012 05/01/2012 Overview: Preoperative evaluation for CABG. Not ReDo -Carotids: Ordered -Vein Mapping: Ordered -Bedside PFTs: Ordered -Formal TTE: Ordered -CXR: Completed documented as of this encounter (statuses as of 12/20/2023) [facility] History of Past illness Narrative* Problem Noted [...] 56, Troponin T .37 on admission to [facility] Wide-complex tachycardia 04/28/2012 Overview: Presented to OSH 04/28/12 in setting acute ID with wide complex tachycardia SVT versus VT. Given adenosine x2 without effect, diltiazem bolus and infusion with no effect. Spontaneous conversion to NSR. Had short run of wide complex tachycardia upon arrival to [facility] from [facility]. Pre-op evaluation 04/28/2012 05/01/2012 Overview: Preoperative evaluation for CABG. Not ReDo -Carotids: Ordered -Vein Mapping: Ordered -Bedside PFTs: Ordered -Formal TTE: Ordered -CXR: Completed documented as of this encounter (statuses as of 12/23/2023) [facility] History of Past illness Narrative* Problem Noted [...] 56, Troponin T .37 on admission to [facility] Wide-complex tachycardia 04/28/2012 Overview: Presented to OSH 04/28/12 in setting acute ID with wide complex tachycardia SVT versus VT. Given adenosine x2 without effect, diltiazem bolus and infusion with no effect. Spontaneous conversion to NSR. Had short run of wide complex tachycardia upon arrival to [facility] from [facility]. Pre-op evaluation 04/28/2012 05/01/2012 Overview: Preoperative evaluation for CABG. Not ReDo -Carotids: Ordered -Vein Mapping: Ordered -Bedside PFTs: Ordered -Formal TTE: Ordered -CXR: Completed documented as of this encounter (statuses as of 12/24/2023) [facility] History of Past illness Narrative* Problem Noted [...] 56, Troponin T .37 on admission to [facility] Wide-complex tachycardia 04/28/2012 Overview: Presented to OSH 04/28/12 in setting acute ID with wide complex tachycardia SVT versus VT. Given adenosine x2 without effect, diltiazem bolus and infusion with no effect. Spontaneous conversion to NSR. Had short run of wide complex tachycardia upon arrival to [facility] from [facility]. Pre-op evaluation 04/28/2012 05/01/2012 Overview: Preoperative evaluation for CABG. Not ReDo -Carotids: Ordered -Vein Mapping: Ordered -Bedside PFTs: Ordered -Formal TTE: Ordered -CXR: Completed documented as of this encounter (statuses as of 12/27/2023) [facility] History of Past illness Narrative* Problem Noted [...] 56, Troponin T .37 on admission to [facility] Wide-complex tachycardia 04/28/2012 Overview: Presented to OSH 04/28/12 in setting acute ID with wide complex tachycardia SVT versus VT. Given adenosine x2 without effect, diltiazem bolus and infusion with no effect. Spontaneous conversion to NSR. Had short run of wide complex tachycardia upon arrival to [facility] from [facility]. Pre-op evaluation 04/28/2012 05/01/2012 Overview: Preoperative evaluation for CABG. Not ReDo -Carotids: Ordered -Vein Mapping: Ordered -Bedside PFTs: Ordered -Formal TTE: Ordered -CXR: Completed documented as of this encounter (statuses as of 12/27/2023) [facility] History of Past illness Narrative* Problem Noted [...] 56, Troponin T .37 on admission to [facility] Wide-complex tachycardia 04/28/2012 Overview: Presented to OSH 04/28/12 in setting acute ID with wide complex tachycardia SVT versus VT. Given adenosine x2 without effect, diltiazem bolus and infusion with no effect. Spontaneous conversion to NSR. Had short run of wide complex tachycardia upon arrival to [facility] from [facility]. Pre-op evaluation 04/28/2012 05/01/2012 Overview: Preoperative evaluation for CABG. Not ReDo -Carotids: Ordered -Vein Mapping: Ordered -Bedside PFTs: Ordered -Formal TTE: Ordered -CXR: Completed documented as of this encounter (statuses as of 12/31/2023) [facility] History of Past illness Narrative* Problem Noted [...] 56, Troponin T .37 on admission to [facility] Wide-complex tachycardia 04/28/2012 Overview: Presented to OSH 04/28/12 in setting acute ID with wide complex tachycardia SVT versus VT. Given adenosine x2 without effect, diltiazem bolus and infusion with no effect. Spontaneous conversion to NSR. Had short run of wide complex tachycardia upon arrival to [facility] from [facility]. Pre-op evaluation 04/28/2012 05/01/2012 Overview: Preoperative evaluation for CABG. Not ReDo -Carotids: Ordered -Vein Mapping: Ordered -Bedside PFTs: Ordered -Formal TTE: Ordered -CXR: Completed documented as of this encounter (statuses as of 01/02/2024) [facility] History of Past illness Narrative* Problem Noted [...] 56, Troponin T .37 on admission to [facility] Wide-complex tachycardia 04/28/2012 Overview: Presented to OSH 04/28/12 in setting acute ID with wide complex tachycardia SVT versus VT. [...] of this encounter (statuses as of 01/03/2024) [facility] History of Past illness Narrative* Problem Noted [...] 56, Troponin T .37 on admission to [facility] Wide-complex tachycardia 04/28/2012 012 Overview: Presented to OSH 04/28/12 in setting acute ID with wide complex tachycardia SVT versus VT. Given adenosine x2 without effect, diltiazem bolus and infusion with no effect. Spontaneous conversion to NSR. Had short run of wide complex tachycardia upon arrival to [facility] from [facility]. Pre-op evaluation 04/28/2012 05/01/2012 Overview: Preoperative evaluation for CABG. Not ReDo -Carotids: Ordered -Vein Mapping: Ordered -Bedside PFTs: Ordered -Formal TTE: Ordered -CXR: Completed documented as of this encounter (statuses as of 12/18/2021) [facility]08-16-2012 History of Past illness Narrative* Problem Noted [...] 56, Troponin T .37 on admission to [facility] Wide-complex tachycardia 04/28/2012 012 Overview: Presented to OSH 04/28/12 in setting acute ID with wide complex tachycardia SVT versus VT. Given adenosine x2 without effect, diltiazem bolus and infusion with no effect. Spontaneous conversion to NSR. Had short run of wide complex tachy[facility] evaluation 04/28/2012 05/01/2012 Overview: Preoperative evaluation for CABG. Not ReDo -Carotids: Ordered -Vein Mapping: Ordered -Bedside PFTs: Ordered -Formal TTE: Ordered -CXR: Completed documented as of this encounter (statuses as of 12/21/2021) [facility]08-16-2012 History of Past illness Narrative* Problem Noted [...] 56, Troponin T .37 on admission to [facility] Wide-complex tachycardia 04/28/2012 012 Overview: Presented to OSH 04/28/12 in setting acute ID with wide complex tachycardia SVT versus VT. [...] of this encounter (statuses as of 01/15/2022) [facility]08-16-2012 History of Past illness Narrative* Problem Noted [...] 56, Troponin T .37 on admission to [facility] Wide-complex tachycardia 04/28/2012 012 Overview: Presented to OSH 04/28/12 in setting acute ID with wide complex tachycardia SVT versus VT. Given adenosine x2 without effect, diltiazem bolus and infusion with no effect. Spontaneous conversion to NSR. Had short run of wide complex tachycardia [facility] Pre[facility] evaluation 04/28/2012 05/01/2012 Overview: Preoperative evaluation for CABG. Not ReDo -Carotids: Ordered -Vein Mapping: Ordered -Bedside PFTs: Ordered -Formal TTE: Ordered -CXR: Completed documented as of this encounter (statuses as of 01/18/2022) [facility]08-[facility]2012 History of Past illness Narrative* Problem Noted [...] 56, Troponin T .37 on admission to [facility] Wide-complex tachycardia 04/28/2012 012 Overview: Presented to OSH 04/28/12 in setting acute ID with wide complex tachycardia SVT versus VT. Given adenosine x2 without effect, diltiazem bolus and infusion with no effect. Spontaneous conversion to NSR. Had short run of wide complex tachycardia [facility] Pre[facility]op evaluation 04/28/2012 05/01/2012 Overview: Preoperative evaluation for CABG. Not ReDo -Carotids: Ordered -Vein Mapping: Ordered -Bedside PFTs: Ordered -Formal TTE: Ordered -CXR: Completed documented as of this encounter (statuses as of 02/06/2022) [facility]2012 History of Past illness Narrative* Problem Noted [...] 56, Troponin T .37 on admission to [facility] Wide-complex tachycardia 04/28/2012 012 Overview: Presented to OSH 04/28/12 in setting acute ID with wide complex tachycardia SVT versus VT. Given adenosine x2 without effect, diltiazem bolus and infusion with no effect. Spontaneous conversion to NSR. Had short run of wide complex tachycardia upon arrival to [facility] from [facility]. Pre-op evaluation 04/28/2012 05/01/2012 Overview: Preoperative evaluation for CABG. Not ReDo -Carotids: Ordered -Vein Mapping: Ordered -Bedside PFTs: Ordered -Formal TTE: Ordered -CXR: Completed documented as of this encounter (statuses as of 04/26/2022) [facility]2012 History of Past illness Narrative* Problem Noted [...] 56, Troponin T .37 on admission to [facility] Wide-complex tachycardia 04/28/2012 012 Overview: Presented to OSH 04/28/12 in setting acute ID with wide complex tachycardia SVT versus VT. Given adenosine x2 without effect, diltiazem bolus and infusion with no effect. Spontaneous conversion to NSR. Had short run of wide complex tachycardia [facility] Pre[facility]op evaluation 04/28/2012 05/01/2012 Overview: Preoperative evaluation for CABG. Not ReDo -Carotids: Ordered -Vein Mapping: Ordered -Bedside PFTs: Ordered -Formal TTE: Ordered -CXR: Completed documented as of this encounter (statuses as of 05/08/2022) [facility]08-[facility]-2012 History of Past illness Narrative* Problem Noted [...] 56, Troponin T .37 on admission to [facility] Wide-complex tachycardia 04/28/2012 012 Overview: Presented to OSH 04/28/12 in setting acute ID with wide complex tachycardia SVT versus VT. Given adenosine x2 without effect, diltiazem bolus and infusion with no effect. Spontaneous conversion to NSR. Had short run of wide complex tachycardia upon [facility] Pre[facility]op evaluation 04/28/2012 05/01/2012 Overview: Preoperative evaluation for CABG. Not ReDo -Carotids: Ordered -Vein Mapping: Ordered -Bedside PFTs: Ordered -Formal TTE: Ordered -CXR: Completed documented as of this encounter (statuses as of 06/06/2022) [facility]2012 History of Past illness Narrative* Problem Noted [...] 56, Troponin T .37 on admission to [facility] Wide-complex tachycardia 04/28/2012 012 Overview: Presented to OSH 04/28/12 in setting acute ID with wide complex tachycardia SVT versus VT. Given adenosine x2 without effect, diltiazem bolus and infusion with no effect. Spontaneous conversion to NSR. Had short run of wide complex tachycardia upon [facility] Pre[facility]op evaluation 04/28/2012 05/01/2012 Overview: Preoperative evaluation for CABG. Not ReDo -Carotids: Ordered -Vein Mapping: Ordered -Bedside PFTs: Ordered -Formal TTE: Ordered -CXR: Completed documented as of this encounter (statuses as of 06/06/2022) [facility]2012 History of Past illness Narrative* Problem Noted [...] 56, Troponin T .37 on admission to [facility] Wide-complex tachycardia 04/28/2012 012 Overview: Presented to OSH 04/28/12 in setting acute ID with wide complex tachycardia SVT versus VT. Given adenosine x2 without effect, diltiazem bolus and infusion with no effect. Spontaneous conversion to NSR. Had short run of wide complex tachycardia upon arrival to [facility] from [facility]. Pre-op evaluation 04/28/2012 05/01/2012 Overview: Preoperative evaluation for CABG. Not ReDo -Carotids: Ordered -Vein Mapping: Ordered -Bedside PFTs: Ordered -Formal TTE: Ordered -CXR: Completed documented as of this encounter (statuses as of 07/31/2022) [facility]08-16-2012 History of Past illness Narrative* Problem Noted [...] 56, Troponin T .37 on admission to [facility] Wide-complex tachycardia 04/28/2012 012 Overview: Presented to OSH 04/28/12 in setting acute ID with wide complex tachycardia SVT versus VT. Given adenosine x2 without effect, diltiazem bolus and infusion with no effect. Spontaneous conversion to NSR. Had short run of wide complex tachycardia upon arrival to [facility] from [facility]. Pre-op evaluation 04/28/2012 05/01/2012 Overview: Preoperative evaluation for CABG. Not ReDo -Carotids: Ordered -Vein Mapping: Ordered -Bedside PFTs: Ordered -Formal TTE: Ordered -CXR: Completed documented as of this encounter (statuses as of 08/01/2022) [facility]08-[facility]-2012 History of Past illness Narrative* Problem Noted [...] 56, Troponin T .37 on admission to [facility] Wide-complex tachycardia 04/28/2012 012 Overview: Presented to OSH 04/28/12 in setting acute ID with wide complex tachycardia SVT versus VT. Given adenosine x2 without effect, diltiazem bolus and infusion with no effect. Spontaneous conversion to NSR. Had short run of wide complex tachycardia upon [facility] Pre-op evaluation 04/28/2012 05/01/2012 Overview: Preoperative evaluation for CABG. Not ReDo -Carotids: Ordered -Vein Mapping: Ordered -Bedside PFTs: Ordered -Formal TTE: Ordered -CXR: Completed documented as of this encounter (statuses as of 08/03/2022) [facility]-2012 History of Past illness Narrative* Problem Noted [...] 56, Troponin T .37 on admission to [facility] Wide-complex tachycardia 04/28/2012 012 Overview: Presented to OSH 04/28/12 in setting acute ID with wide complex tachycardia SVT versus VT. Given adenosine x2 without effect, diltiazem bolus and infusion with no effect. Spontaneous conversion to NSR. Had short run of wide complex tachycardia upon arrival to [facility] from [facility]. Pre-op evaluation 04/28/2012 05/01/2012 Overview: Preoperative evaluation for CABG. Not ReDo -Carotids: Ordered -Vein Mapping: Ordered -Bedside PFTs: Ordered -Formal TTE: Ordered -CXR: Completed documented as of this encounter (statuses as of 08/07/2022) [facility]08-[facility]-2012 History of Past illness Narrative* Problem Noted [...] 56, Troponin T .37 on admission to [facility] Wide-complex tachycardia 04/28/2012 012 Overview: Presented to OSH 04/28/12 in setting acute ID with wide complex tachycardia SVT versus VT. Given adenosine x2 without effect, diltiazem bolus and infusion with no effect. Spontaneous conversion to NSR. Had short run of wide complex tachycardia upon arrival to [facility] from [facility]. Pre-op evaluation 04/28/2012 05/01/2012 Overview: Preoperative evaluation for CABG. Not ReDo -Carotids: Ordered -Vein Mapping: Ordered -Bedside PFTs: Ordered -Formal TTE: Ordered -CXR: Completed documented as of this encounter (statuses as of 08/17/2022) [facility]2012 History of Past illness Narrative* Problem Noted [...] 56, Troponin T .37 on admission to [facility] Wide-complex tachycardia 04/28/2012 012 Overview: Presented to OSH 04/28/12 in setting acute ID with wide complex tachycardia SVT versus VT. Given adenosine x2 without effect, diltiazem bolus and infusion with no effect. Spontaneous conversion to NSR. Had short run of wide complex tachycardia upon arrival to [facility] from [facility]. Pre-op evaluation 04/28/2012 05/01/2012 Overview: Preoperative evaluation for CABG. Not ReDo -Carotids: Ordered -Vein Mapping: Ordered -Bedside PFTs: Ordered -Formal TTE: Ordered -CXR: Completed documented as of this encounter (statuses as of 09/03/2022) [facility]08-16-2012 History of Past illness Narrative* Problem Noted [...] 56, Troponin T .37 on admission to [facility] Wide-complex tachycardia 04/28/2012 012 Overview: Presented to OSH 04/28/12 in setting acute ID with wide complex tachycardia SVT versus VT. Given adenosine x2 without effect, diltiazem bolus and infusion with no effect. Spontaneous conversion to NSR. Had short run of wide complex tachycardia upon arrival to [facility] from [facility]. Pre-op evaluation 04/28/2012 05/01/2012 Overview: Preoperative evaluation for CABG. Not ReDo -Carotids: Ordered -Vein Mapping: Ordered -Bedside PFTs: Ordered -Formal TTE: Ordered -CXR: Completed documented as of this encounter (statuses as of 09/07/2022) [facility]08-[facility]-2012 History of Past illness Narrative* Problem Noted [...] 56, Troponin T .37 on admission to [facility] Wide-complex tachycardia 04/28/2012 012 Overview: Presented to OSH 04/28/12 in setting acute ID with wide complex tachycardia SVT versus VT. Given adenosine x2 without effect, diltiazem bolus and infusion with no effect. Spontaneous conversion to NSR. Had short run of wide complex tachycardia upon arrival to [facility] from [facility]. Pre-op evaluation 04/28/2012 05/01/2012 Overview: Preoperative evaluation for CABG. Not ReDo -Carotids: Ordered -Vein Mapping: Ordered -Bedside PFTs: Ordered -Formal TTE: Ordered -CXR: Completed documented as of this encounter (statuses as of 10/08/2022) [facility]08-[facility]-2012 History of Past illness Narrative* Problem Noted [...] 56, Troponin T .37 on admission to [facility] Wide-complex tachycardia 04/28/2012 012 Overview: Presented to OSH 04/28/12 in setting acute ID with wide complex tachycardia SVT versus VT. Given adenosine x2 without effect, diltiazem bolus and infusion with no effect. Spontaneous conversion to NSR. Had short run of wide complex tachycardia upon arrival to [facility] from [facility]. Pre-op evaluation 04/28/2012 05/01/2012 Overview: Preoperative evaluation for CABG. Not ReDo -Carotids: Ordered -Vein Mapping: Ordered -Bedside PFTs: Ordered -Formal TTE: Ordered -CXR: Completed documented as of this encounter (statuses as of 10/26/2022) [facility]08-[facility]-2012 History of Past illness Narrative* Problem Noted [...] 56, Troponin T .37 on admission to [facility] Wide-complex tachycardia 04/28/2012 012 Overview: Presented to OSH 04/28/12 in setting acute ID with wide complex tachycardia SVT versus VT. Given adenosine x2 without effect, diltiazem bolus and infusion with no effect. Spontaneous conversion to NSR. Had short run of wide complex tachycardia upon arrival to [facility] from [facility]. Pre-op evaluation 04/28/2012 05/01/2012 Overview: Preoperative evaluation for CABG. Not ReDo -Carotids: Ordered -Vein Mapping: Ordered -Bedside PFTs: Ordered -Formal TTE: Ordered -CXR: Completed documented as of this encounter (statuses as of 10/26/2022) [facility]-2012 History of Past illness Narrative* Problem Noted [...] 56, Troponin T .37 on admission to [facility] Wide-complex tachycardia 04/28/2012 012 Overview: Presented to OSH 04/28/12 in setting acute ID with wide complex tachycardia SVT versus VT. Given adenosine x2 without effect, diltiazem bolus and infusion with no effect. Spontaneous conversion to NSR. Had short run of wide complex tachycardia upon arrival to [facility] from [facility]. Pre-op evaluation 04/28/2012 05/01/2012 Overview: Preoperative evaluation for CABG. Not ReDo -Carotids: Ordered -Vein Mapping: Ordered -Bedside PFTs: Ordered -Formal TTE: Ordered -CXR: Completed documented as of this encounter (statuses as of 10/31/2022) [facility]-2012 History of Past illness Narrative* Problem Noted [...] 56, Troponin T .37 on admission to [facility] Wide-complex tachycardia 04/28/2012 012 Overview: Presented to OSH 04/28/12 in setting acute ID with wide complex tachycardia SVT versus VT. Given adenosine x2 without effect, diltiazem bolus and infusion with no effect. Spontaneous conversion to NSR. Had short run of wide complex tachycardia upon arrival to [facility] from [facility]. Pre-op evaluation 04/28/2012 05/01/2012 Overview: Preoperative evaluation for CABG. Not ReDo -Carotids: Ordered -Vein Mapping: Ordered -Bedside PFTs: Ordered -Formal TTE: Ordered -CXR: Completed documented as of this encounter (statuses as of 11/02/2022) [facility]-2012 History of Past illness Narrative* Problem Noted [...] 56, Troponin T .37 on admission to [facility] Wide-complex tachycardia 04/28/2012 012 Overview: Presented to OSH 04/28/12 in setting acute ID with wide complex tachycardia SVT versus VT. Given adenosine x2 without effect, diltiazem bolus and infusion with no effect. Spontaneous conversion to NSR. Had short run of wide complex tachycardia upon arrival to [facility] from [facility]. Pre-op evaluation 04/28/2012 05/01/2012 Overview: Preoperative evaluation for CABG. Not ReDo -Carotids: Ordered -Vein Mapping: Ordered -Bedside PFTs: Ordered -Formal TTE: Ordered -CXR: Completed documented as of this encounter (statuses as of 11/07/2022) [facility]08-[facility]-2012 History of Past illness Narrative* Problem Noted [...] 56, Troponin T .37 on admission to [facility] Wide-complex tachycardia 04/28/2012 012 Overview: Presented to OSH 04/28/12 in setting acute ID with wide complex tachycardia SVT versus VT. Given adenosine x2 without effect, diltiazem bolus and infusion with no effect. Spontaneous conversion to NSR. Had short run of wide complex tachycardia upon arrival to [facility] from [facility]. Pre-op evaluation 04/28/2012 05/01/2012 Overview: Preoperative evaluation for CABG. Not ReDo -Carotids: Ordered -Vein Mapping: Ordered -Bedside PFTs: Ordered -Formal TTE: Ordered -CXR: Completed documented as of this encounter (statuses as of 11/29/2022) [facility]2012 History of Past illness Narrative* Problem Noted [...] 56, Troponin T .37 on admission to [facility] Wide-complex tachycardia 04/28/2012 012 Overview: Presented to OSH 04/28/12 in setting acute ID with wide complex tachycardia SVT versus VT. Given adenosine x2 without effect, diltiazem bolus and infusion with no effect. Spontaneous conversion to NSR. Had short run of wide complex tachycardia upon arrival to [facility] from [facility]. Pre-op evaluation 04/28/2012 05/01/2012 Overview: Preoperative evaluation for CABG. Not ReDo -Carotids: Ordered -Vein Mapping: Ordered -Bedside PFTs: Ordered -Formal TTE: Ordered -CXR: Completed documented as of this encounter (statuses as of 11/30/2022) [facility] History of Past illness Narrative* Problem Noted [...] 56, Troponin T .37 on admission to [facility] Wide-complex tachycardia 04/28/2012 012 Overview: Presented to OSH 04/28/12 in setting acute ID with wide complex tachycardia SVT versus VT. Given adenosine x2 without effect, diltiazem bolus and infusion with no effect. Spontaneous conversion to NSR. Had short run of wide complex tachycardia upon arrival to [facility] from [facility]. Pre-op evaluation 04/28/2012 05/01/2012 Overview: Preoperative evaluation for CABG. Not ReDo -Carotids: Ordered -Vein Mapping: Ordered -Bedside PFTs: Ordered -Formal TTE: Ordered -CXR: Completed documented as of this encounter (statuses as of 12/03/2022) [facility] History of Past illness Narrative* Problem Noted [...] 56, Troponin T .37 on admission to [facility] Wide-complex tachycardia 04/28/2012 012 Overview: Presented to OSH 04/28/12 in setting acute ID with wide complex tachycardia SVT versus VT. Given adenosine x2 without effect, diltiazem bolus and infusion with no effect. Spontaneous conversion to NSR. Had short run of wide complex tachycardia upon arrival to [facility] from [facility]. Pre-op evaluation 04/28/2012 05/01/2012 Overview: Preoperative evaluation for CABG. Not ReDo -Carotids: Ordered -Vein Mapping: Ordered -Bedside PFTs: Ordered -Formal TTE: Ordered -CXR: Completed documented as of this encounter (statuses as of 02/21/2023) [facility]2012 History of Past illness Narrative* Problem Noted [...] 56, Troponin T .37 on admission to [facility] Wide-complex tachycardia 04/28/2012 Overview: Presented to OSH 04/28/12 in setting acute ID with wide complex tachycardia SVT versus VT. Given adenosine x2 without effect, diltiazem bolus and infusion with no effect. Spontaneous conversion to NSR. Had short run of wide complex tachycardia upon arrival to [facility] from [facility]. Pre-op evaluation 04/28/2012 05/01/2012 Overview: Preoperative evaluation for CABG. Not ReDo -Carotids: Ordered -Vein Mapping: Ordered -Bedside PFTs: Ordered -Formal TTE: Ordered -CXR: Completed documented as of this encounter (statuses as of 04/27/2023) [facility]2012 History of Past illness Narrative* Problem Noted [...] 56, Troponin T .37 on admission to [facility] Wide-complex tachycardia 04/28/2012 Overview: Presented to OSH 04/28/12 in setting acute ID with wide complex tachycardia SVT versus VT. Given adenosine x2 without effect, diltiazem bolus and infusion with no effect. Spontaneous conversion to NSR. Had short run of wide complex tachycardia upon arrival to [facility] from [facility]. Pre-op evaluation 04/28/2012 05/01/2012 Overview: Preoperative evaluation for CABG. Not ReDo -Carotids: Ordered -Vein Mapping: Ordered -Bedside PFTs: Ordered -Formal TTE: Ordered -CXR: Completed documented as of this encounter (statuses as of 05/09/2023) [facility]2012 History of Past illness Narrative* Problem Noted [...] 56, Troponin T .37 on admission to [facility] Wide-complex tachycardia 04/28/2012 Overview: Presented to OSH 04/28/12 in setting acute ID with wide complex tachycardia SVT versus VT. Given adenosine x2 without effect, diltiazem bolus and infusion with no effect. Spontaneous conversion to NSR. Had short run of wide complex tachycardia upon arrival to [facility] from [facility]. Pre-op evaluation 04/28/2012 05/01/2012 Overview: Preoperative evaluation for CABG. Not ReDo -Carotids: Ordered -Vein Mapping: Ordered -Bedside PFTs: Ordered -Formal TTE: Ordered -CXR: Completed documented as of this encounter (statuses as of 08/23/2023) [facility]2012 History of Past illness Narrative* Problem Noted [...] 56, Troponin T .37 on admission to [facility] Wide-complex tachycardia 04/28/2012 Overview: Presented to OSH 04/28/12 in setting acute ID with wide complex tachycardia SVT versus VT. Given adenosine x2 without effect, diltiazem bolus and infusion with no effect. Spontaneous conversion to NSR. Had short run of wide complex tachycardia [facility] Pre[facility] evaluation 04/28/2012 05/01/2012 Overview: Preoperative evaluation for CABG. Not ReDo -Carotids: Ordered -Vein Mapping: Ordered -Bedside PFTs: Ordered -Formal TTE: Ordered -CXR: Completed documented as of this encounter (statuses as of 08/27/2023) [facility] Malignant neoplasm of prostate (HCC)- Primary Malignant neoplasm of prostate [facility] Unspecified hypothyroidism- Primary Hypercholesterolemia Pure hypercholesterolemia Abnormal finding of blood chemistry, unspecified [facility] Malignant neoplasm of prostate (HCC)- Primary Malignant neoplasm of prostate [facility] Chronic systolic heart failure (HCC)- Primary Chronic systolic heart failure [facility] Mitral valve insufficiency, unspecified etiology- Primary Chronic systolic heart failure (HCC) Chronic systolic heart failure [facility] Bilateral carotid artery stenosis- Primary Occlusion and stenosis of carotid artery without mention of cerebral infarction [facility] Diagnosis 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- Primary Heart failure, [...] stenosis, asymptomatic, bilateral [facility] Diagnosis Chronic systolic heart failure (HCC)- Primary Chronic systolic heart failure 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 [facility] Diagnosis Malignant neoplasm of prostate (HCC)- Primary Malignant neoplasm of prostate [facility] Diagnosis Chronic systolic heart failure (HCC) Chronic systolic heart failure 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 [facility] Diagnosis 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- Primary Heart failure, acute systolic (HCC) Acute systolic heart failure Preop testing Preoperative examination, unspecified Carotid stenosis, asymptomatic, bilateral Preoperative cardiovascular examination Pre-operative cardiovascular examination [facility]* Diagnosis Type 2 diabetes mellitus with diabetic chronic kidney disease, unspecified CKD stage, unspecified whether rn long term care insulin use ([facility])- Primary PVD (peripheral vascular disease) ([facility]) Peripheral vascular disease, unspecified 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 ([facility]) [facility] Diagnosis Chronic 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)- Primary Chronic combined systolic and diastolic heart failure 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 Essential hypertension Unspecified essential hypertension Hx of CABG Postsurgical aortocoronary bypass status Mixed hyperlipidemia Systolic heart failure, unspecified HF chronicity (HCC) Type 2 diabetes mellitus with diabetic chronic kidney disease, unspecified CKD stage, unspecified whether intermediate insulin use (HCC) PVD (peripheral vascular disease) (HCC) Peripheral vascular disease, unspecified 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) Mitral valve insufficiency, unspecified etiology [facility]* Diagnosis Atherosclerosis of yuhaaviatam coronary artery, unspecified whether angina present, unspecified whether yuhaaviatam or transplanted heart- Primary [facility] Diagnosis Mitral valve insufficiency, unspecified etiology- Primary HFrEF (heart failure with reduced ejection fraction) (HCC) Heart failure, unspecified SOB (shortness of breath) Shortness of breath Hx of CABG Postsurgical aortocoronary bypass status 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 Essential hypertension Unspecified essential hypertension [facility] Diagnosis Severe mitral regurgitation- Primary Mitral valve disorders Cardiomyopathy, ischemic Other specified forms of chronic ischemic heart disease S/P CABG (coronary artery bypass graft) Postsurgical aortocoronary bypass status Sore throat Acute pharyngitis Unspecified severe protein-calorie malnutrition (HCC) [facility] IRB [id number] 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)- Primary [facility]* Diagnosis Dental caries- Primary Unspecified dental caries Pre-operative clearance Preoperative examination, unspecified Non-rheumatic mitral regurgitation Mitral valve disorders Severe mitral regurgitation Mitral valve disorders [facility] Diagnosis Severe mitral regurgitation- Primary Mitral valve disorders Status post implantation of mitral valve leaflet clip documented [facility]* Diagnosis 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 documented [facility]* Diagnosis Cerebrovascular accident (CVA) due to other mechanism ([facility])- Primary Cataract, nuclear sclerotic senile, bilateral documented [facility] this [facility]* Diagnosis 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 Carotid stenosis, 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, left Atrial fibrillation, unspecified type ([facility]) Mixed hyperlipidemia Essential hypertension Unspecified essential hypertension documented [facility] this [facility]* Diagnosis Cardiomyopathy, ischemic- Primary Other specified forms of chronic ischemic heart disease S/P mitral valve clip implantation Stage 3b chronic kidney disease (HCC) documented [facility] this [facility]* Diagnosis 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- Primary Chronic systolic heart failure (HCC) Chronic systolic heart failure S/P CABG (coronary artery bypass graft) Postsurgical aortocoronary bypass status Non-rheumatic mitral regurgitation Mitral valve disorders Severe mitral regurgitation Mitral valve disorders documented [facility] this [facility]* Diagnosis History of prostate cancer- Primary Personal history of malignant neoplasm of prostate documented in this [facility]* Diagnosis Chronic systolic heart failure (HCC)- Primary Chronic systolic heart failure Non-rheumatic mitral regurgitation Mitral valve disorders documented [facility] this [facility]* Diagnosis SANTILLAN (dyspnea on exertion)- Primary Other dyspnea and respiratory abnormality Mitral valve insufficiency, unspecified etiology documented [facility] this [facility]* Diagnosis Frequent PVCs- Primary Other premature beats documented [facility]* Diagnosis PVC (premature ventricular contraction)- Primary Other premature beats documented [facility]* Diagnosis PVC (premature ventricular contraction)- Primary Other premature beats documented [facility]* Diagnosis Carotid stenosis, 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, left- Primary Pacemaker reprogramming/check Fitting and adjustment of cardiac pacemaker [facility]* Diagnosis Frequent PVCs Other premature beats Pacemaker reprogramming/check Fitting and adjustment of cardiac pacemaker [facility] Diagnosis Frequent PVCs- Primary Other premature beats Heart failure, acute systolic (HCC) Acute systolic heart failure 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) Carotid stenosis, 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, left 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 Acute on chronic systolic congestive heart failure (HCC) Acute on chronic systolic heart failure S/P CABG (coronary artery bypass graft) Postsurgical aortocoronary bypass status Paroxysmal atrial fibrillation (HCC) Atrial fibrillation Pacemaker reprogramming/check Fitting and adjustment of cardiac pacemaker [facility] Diagnosis Pacemaker reprogramming/check Fitting and adjustment of cardiac pacemaker Pacemaker reprogramming/check Fitting and adjustment of cardiac pacemaker documented in this encounter [facility]* Diagnosis Amaurosis fugax- Primary Transient arterial [...] of cardiac pacemaker [facility]* Diagnosis Heart failure, acute systolic (HCC)- Primary Acute systolic heart failure Acute on chronic systolic congestive heart failure (HCC) Acute on chronic systolic heart failure Carotid stenosis, 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, left Pacemaker reprogramming/check Fitting and adjustment of cardiac pacemaker [facility] Diagnosis Chronic systolic heart failure (HCC)- Primary Chronic systolic heart failure Pacemaker reprogramming/check Fitting and adjustment of cardiac pacemaker documented [facility] this [facility]* Diagnosis Heart failure, acute systolic (HCC)- Primary Acute systolic heart failure Pacemaker reprogramming/check Fitting and adjustment of cardiac pacemaker [facility]* Diagnosis S/P AVR (aortic valve replacement) Heart valve replaced by other means [facility] Diagnosis Dystrophic nail- Primary Other specified disease of nail Pain around toenail, right foot Pain around toenail, left foot Peripheral arterial disease (CMS/HCC) Unspecified peripheral vascular disease [facility] Diagnosis Chronic systolic (congestive) heart failure (HCC)- Primary End stage heart failure (HCC) [I50.84] Pacemaker reprogramming/check Fitting and adjustment of cardiac pacemaker [facility]* Diagnosis Hypothyroidism, unspecified type- Primary Pacemaker reprogramming/check Fitting and adjustment of cardiac pacemaker documented in this encounter [facility] note* Diagnosis 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- Primary 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 Acute on chronic [...] CKD stage, unspecified whether intermediate insulin use ([facility]) Stage 3b chronic kidney disease (HCC) Paroxysmal atrial fibrillation (HCC) Atrial fibrillation USP (current) use of anticoagulants Long-term (current) use of anticoagulants documented in this encounter [facility] note* Diagnosis Pacemaker reprogramming/check Fitting and adjustment of cardiac pacemaker documented [facility]* Diagnosis 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 Carotid stenosis, asymptomatic, bilateral Atrial fibrillation, unspecified type ([facility]) Mixed hyperlipidemia Essential hypertension Unspecified essential hypertension documented in this encounter [facility] note* Diagnosis SOB (shortness of breath)- Primary Shortness of breath [facility]* Diagnosis Dystrophic nail- Primary Other specified disease of nail Pain around toenail, right foot Pain around toenail, left foot Peripheral arterial disease Unspecified peripheral vascular disease [facility]* Diagnosis History of prostate cancer- Primary Personal history of malignant neoplasm of prostate documented [facility] filedocumented in this encounterPro[facility] SystemInstructionsNot on filedocumented in this encounterProSum[facility] SystemInstructionsNot on filedocumented in this encounterProSum[facility] SystemInstructionsNot on filedocumented in this encounterProSum[facility] InstructionsNot on filedocumented in this encounterProFayette County [facility] HospitalReason for referral (narrative)* Outpatient Procedure (Routine) - Authorized Specialty Diagnoses / Procedures Referred By Jordon t Referred To Contact [facility] [place] Diagnoses Chronic systolic heart failure (HCC) Procedures ECHO ECHO TTHRC R-T 2D W/WOM-MODE COMPL SPEC&COLR D Zahra Pierre MD [address] [place] [address] [address] Referral ID Status Reason Start Date Expiration Date Visits Requested Visits Authorized [id number] Authorized Auto-Generat ed Referral 06/06/2022 06/06/2023 1 1 * Outpatient Procedure (Routine) - Authorized Specialty Diagnoses / Procedures [facility] Referred To Contact [facility] Diagnoses Chronic systolic heart failure (HCC) Procedures ECG COMPLETE ECG ROUTINE ECG W/LEAST 12 LDS W/I&R Zahra Pierre MD [address] [place] [address] [address] Referral ID Status Reason Start Date Expiration Date Visits Requested Visits Authorized [id number] Authorized Auto-Generat ed Referral 06/06/2022 06/06/2023 1 1 [facility] for referral (narrative)* Outpatient Procedure (Routine) - Authorized Specialty Diagnoses / Procedures [facility] Ref[facility] To Contact [facility] Diagnoses Bilateral carotid artery stenosis Procedures US CAROTID ARTERIES [facility] DUPLEX SCAN EXTRACRANIAL ART COMPL BI STUDY John Jefferson MD [address] [place] [address] [address] Referral ID Status Reason Start Date Expiration Date Visits Requested Visits Authorized [id number] Authorized Auto-Generat ed Referral 2 08/03/2023 1 1 [facility] for referral (narrative)* Diagnostic Procedure Only (Routine) - Pending Review Specialty Diagnoses / Procedures Referred By Contac t Referred To Contact [facility] Diagnoses Chronic systolic heart failure (HCC) 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 Procedures NM PET/CT CARDIAC VIABILITY MYOCRD IMG PET PRFUJ W/METAB 2RTRACER [facility] CT Zahra Pierre MD [address] [place] [address] [facility] [address] [place] [address] Referral ID Status Reason Start Date Expiration Date Visits Requested Visits Authorized [id number] Pending Review Auto-Generat ed Referral 2 10/06/2023 1 1 * Diagnostic Procedure Only (Routine) - Pending Review Specialty Diagnoses / Procedures Referred By Contac t Referred To Contact [facility] Diagnoses Chronic systolic heart failure (HCC) 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 Procedures NM PET/CT CARDIAC PERF REST/STRESS MYOCRD IMG PET PRFUJ LEASE ADMINISTRATION ANALYST STD RST & STRS [facility] Zahra Pierre MD [address] [place] [address] [facility] [address] [place] [address] Referral ID Status Reason Start Date Expiration Date Visits Requested Visits Authorized [id number] Pending Review Auto-Generat ed Referral 2 10/06/2023 1 1 [facility] for referral (narrative)* Diagnostic Procedure Only (Routine) - Closed Specialty Diagnoses / Procedures Referred By Contac t Referred To Contact [facility] Diagnoses Chronic systolic heart failure (HCC) 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 Procedures NM PET/CT CARDIAC VIABILITY MYOCRD IMG PET PRFUJ W/METAB 2RTRACER [facility] CT Zahra Pierre MD [address] [place] [address] Molecular [facility] [address] [place] [address] Referral ID Status Reason Start Date Expiration Date V isits Requested Visits Authorized [id number] Closed Auto-Generate d Referral 09/06/2022 10/06/2023 1 1 * Diagnostic Procedure Only (Routine) - Closed Specialty Diagnoses / Procedures Referred By Jordon t Referred To Contact [facility] Diagnoses Chronic systolic heart failure (HCC) 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 Procedures NM PET/CT CARDIAC PERF REST/STRESS MYOCRD IMG PET PRFUJ LEASE ADMINISTRATION ANALYST STD RST & STRS [facility] CT Zahra Pierre MD [address] [place] [address] Molecular [facility] [address] [place] [address] Referral ID Status Reason Start Date Expiration Date V isits Requested Visits Authorized [id number] Closed Auto-Generate d Referral 09/06/2022 10/06/2023 1 1 [facility] for referral (narrative)* Outpatient Procedure (Routine) - Authorized Specialty Diagnoses / Procedures Referred By Morrisac t Referred To [facility] Diagnoses Chronic 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) Procedures ECHO ECHO TTHRC R-T 2D W/WOM-MODE COMPL SPEC&COLR D Virgil Carrillo MD [address] [place] [address] [place] [address] [place] [address] Referral ID Status Reason Start Date Expiration Date Visits Requested Visits Authorized [id number] Authorized Auto-Generat ed Referral 10/30/2023 10/29/2024 1 1 * Outpatient Procedure (Routine) - Authorized Specialty Diagnoses / Procedures Referred By Contac t Referred To Contact [facility] Diagnoses Chronic 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) Procedures ECG COMPLETE ECG ROUTINE ECG W/LEAST 12 LDS W/I&R Virgil Carrillo MD [address] [place] [address] [facility] [address] [place] [address] Referral ID Status Reason Start Date Expiration Date Visits Requested Visits Authorized [id number] Authorized Auto-Generat ed Referral 10/30/2023 10/29/2024 1 1 * Transition of Care (Routine) - Ref Not Required Specialty Diagnoses / Procedures Referred By Contac t Referred To Contact [facility] CARDIOVASCULAR MEDICINE OP FOLLOW UP APPT ORDER Virgil Carrillo MD [address] [place] [address] Referral ID Status Reason Start Date Expiration Date Visits Requested Visits Authorized [id number] Ref Not Required PCP Requested Referral 01/28/2024 10/29/2024 1 1 [facility] for referral (narrative)* Outpatient Procedure (Routine) - Pending Review Specialty Diagnoses / Procedures Referred By Contac t Referred To Contact [facility] Diagnoses Atherosclerosis of yuhaaviatam coronary artery, unspecified whether angina present, unspecified whether yuhaaviatam or transplanted heart Procedures ECHO ECHO TTHRC R-T 2D W/WOM-MODE COMPL SPEC&COLR D Virgil Carrillo MD [address] [place] [address] [facility] [address] [place] [address] Referral ID Status Reason Start Date Expiration Date Visits Requested Visits Authorized [id number] Pending Review Auto-Generat ed Referral 11/26/2023 11/25/2024 1 1 * Outpatient Procedure (Routine) - Authorized Specialty Diagnoses / Procedures Referred By Contac t Referred To Contact [facility] Diagnoses Atherosclerosis of yuhaaviatam coronary artery, unspecified whether angina present, unspecified whether yuhaaviatam or transplanted heart Procedures ECG COMPLETE ECG ROUTINE ECG W/LEAST 12 LDS W/I&R Virgil Carrillo MD [address] [facility] [place] [address] [address] Referral ID Status Reason Start Date Expiration Date Visits Requested Visits Authorized [id number] Authorized Auto-Generat ed Referral 11/26/2023 11/25/2024 1 1 [facility] for referral (narrative)* Outpatient Procedure (Routine) - Pending Review Specialty Diagnoses / Procedures Referred By Contac t Referred To Contact [facility] Diagnoses HFrEF (heart failure with reduced ejection fraction) (HCC) Mitral valve insufficiency, unspecified etiology Procedures ECHO ECHO TTHRC R-T 2D W/WOM-MODE COMPL SPEC&COLR D Carmelina Ramos APRN.CNP [address] [place] [address] [address] Referral ID Status Reason Start Date Expiration Date Visits Requested Visits Authorized [id number] Pending Review Auto-Generat ed Referral 12/23/2023 12/22/2024 1 1 * Outpatient Procedure (Routine) - Pending Review Specialty Diagnoses / Procedures Referred By Contac t Referred To Contact [facility] Diagnoses HFrEF (heart failure with reduced ejection fraction) (HCC) Mitral valve insufficiency, unspecified etiology Procedures ECG COMPLETE ECG ROUTINE ECG W/LEAST 12 LDS W/I&R Carmelina Ramos APRN.CNP [address] [place] [address] [address] Referral ID Status Reason Start Date Expiration Date Visits Requested Visits Authorized [id number] Pending Review Auto-Generat ed Referral 12/23/2023 12/22/2024 1 1 * Transition of Care (Routine) - Ref Not Required Specialty Diagnoses / Procedures Referred By Contac t Referred To [facility] Diagnoses Mitral valve insufficiency, unspecified etiology Procedures CARDIOVASCULAR MEDICINE OP FOLLOW UP APPT ORDER Carmelina Ramos APRN.CNP [address] [place] [address] [address] Referral ID Status Reason Start Date Expiration Date Visits Requested Visits Authorized [id number] Ref Not Required PCP Requested Referral 03/23/2024 12/22/2024 1 1 [facility] for referral (narrative)* Outpatient Procedure (Routine) - Pending Review Specialty Diagnoses / Procedures Referred By Contac t Referred To [facility] Diagnoses Severe mitral regurgitation Cardiomyopathy, ischemic S/P CABG (coronary artery bypass graft) Procedures ECHO ECHO TTHRC R-T 2D W/WOM-MODE COMPL SPEC&COLR D Efren Brady MD [address] [place] [address] [address] Referral ID Status Reason Start Date Expiration Date Visits Requested Visits Authorized [id number] Pending Review Auto-Generat ed Referral 12/26/2023 12/25/2024 1 1 * Outpatient Procedure (Routine) - Pending Review Specialty Diagnoses / Procedures Referred By Contac t Referred To [facility] Diagnoses Severe mitral regurgitation Cardiomyopathy, ischemic S/P CABG (coronary artery bypass graft) Procedures ECG COMPLETE ECG ROUTINE ECG W/LEAST 12 LDS W/I&R Efren Brady MD [address] [place] [address] [address] Referral ID Status Reason Start Date Expiration Date Visits Requested Visits Authorized [id number] Pending Review Auto-Generat ed Referral 12/26/2023 12/25/2024 1 1 * Transition of Care (Routine) - Ref Not Required Specialty Diagnoses / Procedures Referred By Contac t Referred To Contact [facility] Procedures CARDIOVASCULAR MEDICINE OP FOLLOW UP APPT ORDER Efren Brady MD [address] [place] [address] [address] Referral ID Status Reason Start Date Expiration Date Visits Requested Visits Authorized [id number] Ref Not Required PCP Requested Referral 03/26/2024 12/25/2024 1 1 * Consult, Test, Treat (Routine) - Authorized Specialty Diagnoses / Procedures Referred By Contac t Referred To Contact Ent - Otolaryngology Diagnoses Sore throat Procedures CONSULT TO ENT OFFICE/OUTPATIENT [facility] 60 MINUTES Efren Brady MD [address] [place] [address] Referral ID Status Reason Start Date Expiration Date Visits Requested Visits Authorized [id number] Authorized PCP Requested Referral 12/26/2023 12/25/2024 1 1 [facility] for referral (narrative)* Outpatient Procedure (Routine) - Authorized Specialty Diagnoses / Procedures Referred By Contac t Referred To Contact [facility] Diagnoses Severe mitral regurgitation Status post implantation of mitral valve leaflet clip Procedures ECG COMPLETE ECG ROUTINE ECG W/LEAST 12 LDS W/I&[place] [address] [place], [place] [address] [address] [address] Referral ID Status Reason Start Date Expiration Date Visits Requested Visits Authorized [id number] Authorized Auto-Generat ed Referral 02/27/2024 2025 1 1 * Outpatient Procedure (Routine) - Authorized Specialty Diagnoses / Procedures Referred By Contac t Referred To Contact [facility] Diagnoses Severe mitral regurgitation Status post implantation of mitral valve leaflet clip Procedures ECG COMPLETE ECG ROUTINE ECG W/LEAST 12 LDS W/I&R Efren Brady MD [address] [place], [place] [id number] [address] [address] Referral ID Status Reason Start Date Expiration Date Visits Requested Visits Authorized [id number] Authorized Auto-Generat ed Referral 02/20/2024 2025 1 1 * Outpatient Procedure (Routine) - Authorized Specialty Diagnoses / Procedures Referred By Jordon t Referred To Contact [facility] Diagnoses Severe mitral regurgitation Status post implantation of mitral valve leaflet clip Procedures ECHO ECHO TTHRC R-T 2D W/WOM-MODE COMPL SPEC&[place] [address] [place], [place] [id number] [place] [id number] Referral ID Status Reason Start Date Expiration Date Visits Requested Visits Authorized [id number] Authorized Auto-Generat ed Referral 02/20/2024 2025 1 1 [facility] for referral (narrative)* Diagnostic Procedure Only (Routine) - Pending Review Specialty Diagnoses / Procedures Referred By Jordon t Referred To Contact [facility] Diagnoses Carotid stenosis, 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, left Procedures US CAROTID BILATERAL Luís Skinner, VAN DRIVER.COMPUTER APPLICATIONS INSTRUCTOR [address] [address] [facility] Imaging [facility] Referral ID Status Reason Start Date Expiration Date Visits Requested Visits Authorized [id number] Pending Review Auto-Generat ed Referral 03/18/2024 04/17/2025 1 1 [facility] for referral (narrative)* Outpatient Procedure (Routine) - New Request Specialty Diagnoses / Procedures Referred By Contac t Referred To Contact [facility] [place] Diagnoses Frequent PVCs Procedures ECG COMPLETE ECG ROUTINE ECG W/LEAST 12 LDS W/I&R Nj Wei MD [address] [place] [address] [facility] [address] [place] [id number] Referral ID Status Reason Start Date Expiration Date Visits Requested Visits Authorized [id number] New Request Auto-Generat ed Referral 07/27/2025 1 1 [facility] for referral (narrative)* Diagnostic Procedure Only (Routine) - New Request Specialty Diagnoses / Procedures Referred By Contac t Referred To Contact [facility] Diagnoses Carotid stenosis, 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, left Procedures US CAROTID BILATERAL Luís Skinner APRN.CNP [address] [place] [id number] Us [place] [phone] Referral ID Status Reason Start Date Expiration Date Visits Requested Visits Authorized [id number] New Request Auto-Generat ed Referral 08/18/2024 09/17/2025 1 1 [facility] for referral (narrative)* Outpatient Procedure (Routine) - Closed Specialty Diagnoses / Procedures Referred By Contac t Referred To Contact [facility] [place] Diagnoses Pacemaker reprogramming/check Procedures CARDIAC IMPLANTABLE DEVICE CHECK Card Ep Device [facility] Main [address] [place] [address] [facility] [address] [place] [address] Referral ID Status Reason Start Date Expiration Date V isits Requested Visits Authorized [id number] Closed Auto-Generate d Referral 08/17/2024 08/17/2025 1 1 * Outpatient Procedure (Routine) - Closed Specialty Diagnoses / Procedures Referred By Contac t Referred To Contact [facility] Diagnoses Pacemaker reprogramming/check Procedures CARDIAC IMPLANTABLE DEVICE CHECK Card [facility] Main [address] [place] [address] [address] Referral ID Status Reason Start Date Expiration Date V isits Requested Visits Authorized [id number] Closed Auto-Generate d Referral 08/17/2024 08/17/2025 1 1 [facility] for referral (narrative)* Transition of Care (Routine) - Authorized Specialty Diagnoses / Procedures Referred By Contac t Referred To Contact [facility] [place] Procedures CARDIOVASCULAR MEDICINE OP FOLLOW UP APPT ORDER Carmela Fernandes MD [address] [place] [address] Phone: tel: fax: [address] [address] Referral ID Status Reason Start Date Expiration Date Visits Requested Visits Authorized [id number] Authorized PCP Requested Referral 06/22/2025 12/21/2025 1 1 [facility] for referral (narrative)* Transition of Care (Routine) - Authorized Specialty Diagnoses / Procedures Referred By Contac t Referred To Contact [facility] [place] Procedures CARDIOVASCULAR MEDICINE [place] [address] [place] [address] Phone: tel: fax: [facility] [address] [address] Referral ID Status Reason Start Date Expiration Date Visits Requested Visits Authorized [id number] Authorized PCP Requested Referral 12/01/2025 03/01/2026 1 1 [facility] for visit Narrative* Outpatient Procedure (Routine) - Closed Specialty Diagnoses / Procedures Referred By Contac t Referred To Contact [facility] Diagnoses Pacemaker reprogramming/check Procedures CARDIAC IMPLANTABLE DEVICE CHECK Card Ep Device Clinic Main [address] [place] [address] [facility] [place] [address] [place] [address] Referral ID Status Reason Start Date Expiration Date V isits Requested Visits Authorized [id number] Closed Auto-Generate d Referral 08/17/2024 08/17/2025 1 1 [facility] for visit Narrative* Consultation (Routine) - Authorized Specialty Diagnoses / Procedures [facility] Card[facility] Diagnoses Chronic heart failure, unspecified heart failure type (CMS-HCC) Procedures Ambulatory referral to Cardiac Rehabilitation ([facility]) Ref Prov, [place] [address] [facility] Cardiac Rehab Billing [address] [place] [address] Referral ID Status Reason Start Date Expiration Date Visits Requested Visits Authorized [id number] Authorized Specialty Services Required 06/18/2024 06/18/2025 36 36 [facility] for visit Narrative* Consultation (Routine) - Authorized Specialty Diagnoses / Procedures Referred By Contac t Referred To Contact Card[facility] Rehabilitation Diagnoses S/P AVR (aortic valve replacement) Procedures Ambulatory referral to Cardiac Rehabilitation ([facility]) Samm Thompson MD [address] [place] [address] [facility] Cardiac Rehab Billing [address] [place] [address] Referral ID Status Reason Start Date Expiration Date Visits Requested Visits Authorized [id number] Authorized Specialty Services Required 06/24/2024 06/24/2025 36 36 [facility] for visit Narrative* Consultation (Routine) - Authorized Specialty Diagnoses / Procedures Referred By Morrisac t Referred To Contact [facility] Diagnoses S/P AVR (aortic valve replacement) Procedures Ambulatory referral to Cardiac Rehabilitation ([facility]) Samm Thompson MD [address] [place] [address] Phone: tel:[phone] fax: [facility] - Cardiac Rehab [address] [place] [address] Phone: tel:[phone] fax:[phone] Referral ID Status Reason Start Date Expiration Date Visits Requested Visits Authorized [id number] Authorized Specialty Services Required 06/24/2024 06/24/2025 36 36 [facility] for visit Narrative* Outpatient Procedure (Routine) - Closed Specialty Diagnoses / Procedures Referred By Jordon rao Referred To Contact [facility] Diagnoses Pacemaker reprogramming/check Procedures CARDIAC IMPLANTABLE DEVICE CHECK Cardiology [address] [place] [address] Phone: tel: Heart [facility] [place] [address] [place] [address] Referral ID Status Reason Start Date Expiration Date V isits Requested Visits Authorized [id number] Closed Auto-Generate d Referral 08/19/2024 08/19/2025 1 1 [facility] Summary Purpose Family History No Family History [...] Documents on File Type Date Recorded 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 (HCC) Chronic systolic heart failure (HCC) S/P CABG (coronary artery bypass graft) Chronic 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) Acute on chronic clinical systolic heart failure (HCC) Stage 3b chronic kidney disease (HCC) Ischemic cardiomyopathy Non-ischemic cardiomyopathy (HCC) Shortness of breath Procedures CARDIOVASCULAR MEDICINE OP FOLLOW UP APPT ORDER Paulina Fernandes MD [address] [place] [address] [facility] [place] [address] [place] [address] Referral ID Status Reason Start Date Expiration Date Visits Requested Visits Authorized [id number] Ref Not Required PCP Requested Referral 01/10/2024 01/09/2025 1 1 Specialty Diagnoses / Procedures Referred By Contac t Referred To Contact Nephrology Diagnoses Stage 3b chronic kidney disease (HCC) Procedures CONSULT TO NEPHROLOGY OFFICE/OUTPATIENT [facility] 60 MINUTES Efren Brady MD [address] [place] [address] Referral ID Status Reason Start Date Expiration Date Visits Requested Visits Authorized [id number] Authorized PCP Requested Referral 03/30/2024 03/30/2025 1 1 Specialty Diagnoses / Procedures Referred By Contac t Referred To Contact [facility] [place] Diagnoses Cardiomyopathy, ischemic S/P mitral valve clip implantation Procedures ECHO ECHO TTHRC R-T 2D W/WOM-MODE COMPL SPEC&COLR D Efren Brady MD [address] [place] [address] [address] Referral ID Status Reason Start Date Expiration Date Visits Requested Visits Authorized [id number] Authorized Auto-Generat ed Referral 03/30/2024 03/30/2025 1 1 Specialty Diagnoses / Procedures Referred By Contac t Referred To Contact [facility] Diagnoses Cardiomyopathy, ischemic S/P mitral valve clip implantation Procedures ECG COMPLETE ECG ROUTINE ECG W/LEAST 12 LDS W/I&R Efren Brady MD [address] [place] [address] [address] Referral ID Status Reason Start Date Expiration Date Visits Requested Visits Authorized [id number] Authorized Auto-Generat ed Referral 03/30/2024 03/30/2025 1 1 Specialty Diagnoses / Procedures Referred By Contac t Referred To Contact [facility] Procedures CARDIOVASCULAR MEDICINE OP FOLLOW UP APPT ORDER Efren Brady MD [address] [place] [address] [address] Referral ID Status Reason Start Date Expiration Date Visits Requested Visits Authorized [id number] Ref Not Required PCP Requested Referral 09/30/2024 03/30/2025 1 1 Specialty Diagnoses / Procedures Referred By Contac t Referred To Contact Cardiology Diagnoses Cardiomyopathy, ischemic S/P mitral valve clip implantation Procedures CONSULT TO CARDIOLOGY OFFICE/OUTPATIENT [facility] 60 MINUTES Efren Brady MD [address] [place] [address] Referral ID Status Reason Start Date Expiration Date Visits Requested Visits Authorized [id number] Authorized PCP Requested Referral 03/30/2024 03/30/2025 1 1 Specialty Diagnoses / Procedures Referred By Contac t Referred To Contact [facility] Procedures CARDIOVASCULAR MEDICINE OP FOLLOW UP APPT ORDER Carmela Fernandes MD [address] [place] [address] [facility] [place] [phone] Referral ID Status Reason Start Date Expiration Date Visits Requested Visits Authorized [id number] Ref Not Required PCP Requested Referral 06/08/2025 1 1 Specialty Diagnoses / Procedures Referred By Contac t Referred To Contact CT IMAGING Diagnoses Lung nodules Procedures CT CHEST W IVCON CAT SCAN OF CHEST CONTRAST Victor M Duval MD [address] [place] [address] [place] [address] Ct Imaging [place] [address] Referral ID Status Reason Start Date Expiration Date V isits Requested Visits Authorized [id number] Closed Auto-Generate d Referral 09/05/2021 10/05/2022 1 1 Specialty Diagnoses / Procedures Referred By Contac t Referred To Contact [facility] Procedures CARDIOVASCULAR MEDICINE [place] [address] [place] [address] [facility] [address] [address] Referral ID Status Reason Start Date Expiration Date Visits Requested Visits Authorized [id number] Ref Not Required PCP Requested Referral 05/21/2025 08/19/2025 1 1 Specialty Diagnoses / Procedures Referred By Contac t Referred To Contact [facility] Diagnoses Frequent PVCs Procedures LUNG DIFFUSION CAPACITY (DLCO) DIFFUSING CAPACITY Nj Wei MD [address] [place] [address] [facility] [place] [address] [place] [address] Referral ID Status Reason Start Date Expiration Date Visits Requested Visits Authorized [id number] New Request Auto-Generat ed Referral 08/19/2024 09/18/2025 1 1 Specialty Diagnoses / Procedures Referred By Contac t Referred To Contact [facility] Diagnoses Frequent PVCs Procedures SPIROMETRY BASELINE ONLY SPMTRY W/VC EXPIRATORY DANIEL W/WO MXML VOL VNTJ Nj Wei MD [address] [place] [address] [facility] [place] [address] [place] [address] Referral ID Status Reason Start Date Expiration Date Visits Requested Visits Authorized [id number] New Request Auto-Generat ed Referral 08/19/2024 09/18/2025 1 1 Specialty Diagnoses / Procedures Referred By Contac t Referred To Contact [facility] [place] Diagnoses Amaurosis fugax Heart failure, acute systolic (HCC) Acute on chronic systolic congestive heart failure (HCC) PVD (peripheral vascular disease) (HCC) S/P CABG (coronary artery bypass graft) Procedures CARDIOVASCULAR MEDICINE OP FOLLOW UP APPT ORDER Carmela Fernandes MD [address] [place] [address] [facility] [place] [address] Referral ID Status Reason Start Date Expiration Date Visits Requested Visits Authorized [id number] Ref Not Required PCP Requested Referral 08/19/2024 [...] and content) DATE CREATED AUTHOR [facility]/29/2019 [facility] DATE CREATED AUTHOR AUTHOR'S ORGANIZ ATION 05/25/2022 [facility] DATE CREATED AUTHOR AUTHOR'S ORGANIZ ATION 02/22/2023 [facility] DATE CREATED AUTHOR AUTHOR'S ORGANIZ ATION 04/17/2024 [facility] DATE CREATED AUTHOR AUTHOR'S ORGANIZ ATION 05/13/2024 [facility] DATE CREATED AUTHOR AUTHOR'S ORGANIZ ATION 11/01/2024 [facility] DATE CREATED AUTHOR AUTHOR'S ORGANIZ ATION 11/20/2024 [facility] DATE CREATED AUTHOR AUTHOR'S ORGANIZ ATION 03/29/2025 [facility] DATE CREATED AUTHOR AUTHOR'S ORGANIZ ATION 04/17/2025 [facility] DATE CREATED AUTHOR AUTHOR'S ORGANIZ ATION 04/29/2025 [facility] DATE CREATED AUTHOR AUTHOR'S ORGANIZ ATION 05/04/2025 [facility] Source Comments (unrecognize d section and content) In the event this informatio n is protected by the Federal Confidentiality of Alcohol and Drug Abuse Patient Records regulations: The Federal rules restrict any use of the information to criminally investigate or prosecute any alcohol or drug abuse patient.[facility] the event this information is protected by the Federal Confidentiality of Alcohol and Drug Abuse Patient Records regulations: The Federal rules restrict any use of the information to criminally investigate or prosecute any alcohol or drug abuse patient.[facility] the event this information is protected by the Federal Confidentiality of Alcohol and Drug Abuse Patient Records regulations: The Federal rules restrict any use of the information to criminally investigate or prosecute any alcohol or drug abuse patient.[facility] the event this information is protected by the Federal Confidentiality of Alcohol and Drug Abuse Patient Records regulations: The Federal rules restrict any use of the information to criminally investigate or prosecute any alcohol or drug abuse patient.[facility] ColumbusIn the event this information is protected by the Federal Confidentiality of Alcohol and Drug Abuse Patient Records regulations: The Federal rules restrict any use of the information to criminally investigate or prosecute any alcohol or drug abuse patient.[facility] the event this information is protected by the Federal Confidentiality of Alcohol and Drug Abuse Patient Records regulations: The Federal rules restrict any use of the information to criminally investigate or prosecute any alcohol or drug abuse patient.[facility] ColumbusIn the event this information is protected by the Federal Confidentiality of Alcohol and Drug Abuse Patient Records regulations: The Federal rules restrict any use of the information to criminally investigate or prosecute any alcohol or drug abuse patient.[facility] ColumbusIn the event this information is protected by the Federal Confidentiality of Alcohol and Drug Abuse Patient Records regulations: The Federal rules restrict any use of the information to criminally investigate or prosecute any alcohol or drug abuse patient.[facility] Columbus[facility] the event this information is protected by the Federal Confidentiality of Alcohol and Drug Abuse Patient Records regulations: The Federal rules restrict any use of the information to criminally investigate or prosecute any alcohol or drug abuse patient.[facility] Columbus[facility] the event this information is protected by the Federal Confidentiality of Alcohol and Drug Abuse Patient Records regulations: The Federal rules restrict any use of the information to criminally investigate or prosecute any alcohol or drug abuse patient.[facility] ColumbusIn the event this information is protected by the Federal Confidentiality of Alcohol and Drug Abuse Patient Records regulations: The Federal rules restrict any use of the information to criminally investigate or prosecute any alcohol or drug abuse patient.[facility] ColumbusIn the event this information is protected by the Federal Confidentiality of Alcohol and Drug Abuse Patient Records regulations: The Federal rules restrict any use of the information to criminally investigate or prosecute any alcohol or drug abuse patient.[facility] ColumbusIn the event this information is protected by the Federal Confidentiality of Alcohol and Drug Abuse Patient Records regulations: The Federal rules restrict any use of the information to criminally investigate or prosecute any alcohol or drug abuse patient.[facility] ColumbusIn the event this information is protected by the Federal Confidentiality of Alcohol and Drug Abuse Patient Records regulations: The Federal rules restrict any use of the information to criminally investigate or prosecute any alcohol or drug abuse patient.[facility] ColumbusIn the event this information is protected by the Federal Confidentiality of Alcohol and Drug Abuse Patient Records regulations: The Federal rules restrict any use of the information to criminally investigate or prosecute any alcohol or drug abuse patient.[facility] ColumbusIn the event this information is protected by the Federal Confidentiality of Alcohol and Drug Abuse Patient Records regulations: The Federal rules restrict any use of the information to criminally investigate or prosecute any alcohol or drug abuse patient.[facility] ColumbusIn the event this information is protected by the Federal Confidentiality of Alcohol and Drug Abuse Patient Records regulations: The Federal rules restrict any use of the information to criminally investigate or prosecute any alcohol or drug abuse patient.[facility] ColumbusIn the event this information is protected by the Federal Confidentiality of Alcohol and Drug Abuse Patient Records regulations: The Federal rules restrict any use of the information to criminally investigate or prosecute any alcohol or drug abuse patient.[facility] ColumbusIn the event this information is protected by the Federal Confidentiality of Alcohol and Drug Abuse Patient Records regulations: The Federal rules restrict any use of the information to criminally investigate or prosecute any alcohol or drug abuse patient.[facility] ColumbusIn the event this information is protected by the Federal Confidentiality of Alcohol and Drug Abuse Patient Records regulations: The Federal rules restrict any use of the information to criminally investigate or prosecute any alcohol or drug abuse patient.[facility] ColumbusIn the event this information is protected by the Federal Confidentiality of Alcohol and Drug Abuse Patient Records regulations: The Federal rules restrict any use of the information to criminally investigate or prosecute any alcohol or drug abuse patient.[facility] ColumbusIn the event this information is protected by the Federal Confidentiality of Alcohol and Drug Abuse Patient Records regulations: The Federal rules restrict any use of the information to criminally investigate or prosecute any alcohol or drug abuse patient.[facility] ColumbusIn the event this information is protected by the Federal Confidentiality of Alcohol and Drug Abuse Patient Records regulations: The Federal rules restrict any use of the information to criminally investigate or prosecute any alcohol or drug abuse patient.[facility] ColumbusIn the event this information is protected by the Federal Confidentiality of Alcohol and Drug Abuse Patient Records regulations: The Federal rules restrict any use of the information to criminally investigate or prosecute any alcohol or drug abuse patient.[facility] ColumbusIn the event this information is protected by the Federal Confidentiality of Alcohol and Drug Abuse Patient Records regulations: The Federal rules restrict any use of the information to criminally investigate or prosecute any alcohol or drug abuse patient.[facility] ColumbusIn the event this information is protected by the Federal Confidentiality of Alcohol and Drug Abuse Patient Records regulations: The Federal rules restrict any use of the information to criminally investigate or prosecute any alcohol or drug abuse patient.[facility] ColumbusIn the event this information is protected by the Federal Confidentiality of Alcohol and Drug Abuse Patient Records regulations: The Federal rules restrict any use of the information to criminally investigate or prosecute any alcohol or drug abuse patient.[facility]In the event this information is protected by the Federal Confidentiality of Alcohol and Drug Abuse Patient Records regulations: The Federal rules restrict any use of the information to criminally investigate or prosecute any alcohol or drug abuse patient.[facility]In the event this information is protected by the Federal Confidentiality of Alcohol and Drug Abuse Patient Records regulations: The Federal rules restrict any use of the information to criminally investigate or prosecute any alcohol or drug abuse patient.[facility]In the event this information is protected by the Federal Confidentiality of Alcohol and Drug Abuse Patient Records regulations: The Federal rules restrict any use of the information to criminally investigate or prosecute any alcohol or drug abuse patient.[facility] ColumbusIn the event this information is protected by the Federal Confidentiality of Alcohol and Drug Abuse Patient Records regulations: The Federal rules restrict any use of the information to criminally investigate or prosecute any alcohol or drug abuse patient.[facility] ColumbusIn the event this information is protected by the Federal Confidentiality of Alcohol and Drug Abuse Patient Records regulations: The Federal rules restrict any use of the information to criminally investigate or prosecute any alcohol or drug abuse patient.[facility] ColumbusIn the event this information is protected by the Federal Confidentiality of Alcohol and Drug Abuse Patient Records regulations: The Federal rules restrict any use of the information to criminally investigate or prosecute any alcohol or drug abuse patient.[facility] ColumbusIn the event this information is protected by the Federal Confidentiality of Alcohol and Drug Abuse Patient Records regulations: The Federal rules restrict any use of the information to criminally investigate or prosecute any alcohol or drug abuse patient.[facility] ColumbusIn the event this information is protected by the Federal Confidentiality of Alcohol and Drug Abuse Patient Records regulations: The Federal rules restrict any use of the information to criminally investigate or prosecute any alcohol or drug abuse patient.[facility] ColumbusIn the event this information is protected by the Federal Confidentiality of Alcohol and Drug Abuse Patient Records regulations: The Federal rules restrict any use of the information to criminally investigate or prosecute any alcohol or drug abuse patient.[facility] ColumbusIn the event this information is protected by the Federal Confidentiality of Alcohol and Drug Abuse Patient Records regulations: The Federal rules restrict any use of the information to criminally investigate or prosecute any alcohol or drug abuse patient.[facility] ColumbusIn the event this information is protected by the Federal Confidentiality of Alcohol and Drug Abuse Patient Records regulations: The Federal rules restrict any use of the information to criminally investigate or prosecute any alcohol or drug abuse patient.[facility] ColumbusIn the event this information is protected by the Federal Confidentiality of Alcohol and Drug Abuse Patient Records regulations: The Federal rules restrict any use of the information to criminally investigate or prosecute any alcohol or drug abuse patient.[facility] ColumbusIn the event this information is protected by the Federal Confidentiality of Alcohol and Drug Abuse Patient Records regulations: The Federal rules restrict any use of the information to criminally investigate or prosecute any alcohol or drug abuse patient.[facility] ColumbusIn the event this information is protected by the Federal Confidentiality of Alcohol and Drug Abuse Patient Records regulations: The Federal rules restrict any use of the information to criminally investigate or prosecute any alcohol or drug abuse patient.[facility] ColumbusIn the event this information is protected by the Federal Confidentiality of Alcohol and Drug Abuse Patient Records regulations: The Federal rules restrict any use of the information to criminally investigate or prosecute any alcohol or drug abuse patient.[facility] ColumbusIn the event this information is protected by the Federal Confidentiality of Alcohol and Drug Abuse Patient Records regulations: The Federal rules restrict any use of the information to criminally investigate or prosecute any alcohol or drug abuse patient.[facility] ColumbusIn the event this information is protected by the Federal Confidentiality of Alcohol and Drug Abuse Patient Records regulations: The Federal rules restrict any use of the information to criminally investigate or prosecute any alcohol or drug abuse patient.[facility] ColumbusIn the event this information is protected by the Federal Confidentiality of Alcohol and Drug Abuse Patient Records regulations: The Federal rules restrict any use of the information to criminally investigate or prosecute any alcohol or drug abuse patient.[facility] the event this information is protected by the Federal Confidentiality of Alcohol and Drug Abuse Patient Records regulations: The Federal rules restrict any use of the information to criminally investigate or prosecute any alcohol or drug abuse patient.[facility] ColumbusIn the event this information is protected by the Federal Confidentiality of Alcohol and Drug Abuse Patient Records regulations: The Federal rules restrict any use of the information to criminally investigate or prosecute any alcohol or drug abuse patient.[facility] ColumbusIn the event this information is protected by the Federal Confidentiality of Alcohol and Drug Abuse Patient Records regulations: The Federal rules restrict any use of the information to criminally investigate or prosecute any alcohol or drug abuse patient.[facility] ColumbusIn the event this information is protected by the Federal Confidentiality of Alcohol and Drug Abuse Patient Records regulations: The Federal rules restrict any use of the information to criminally investigate or prosecute any alcohol or drug abuse patient.[facility] ColumbusIn the event this information is protected by the Federal Confidentiality of Alcohol and Drug Abuse Patient Records regulations: The Federal rules restrict any use of the information to criminally investigate or prosecute any alcohol or drug abuse patient.[facility] ColumbusIn the event this information is protected by the Federal Confidentiality of Alcohol and Drug Abuse Patient Records regulations: The Federal rules restrict any use of the information to criminally investigate or prosecute any alcohol or drug abuse patient.[facility] ColumbusIn the event this information is protected by the Federal Confidentiality of Alcohol and Drug Abuse Patient Records regulations: The Federal rules restrict any use of the information to criminally investigate or prosecute any alcohol or drug abuse patient.[facility] ColumbusIn the event this information is protected by the Federal Confidentiality of Alcohol and Drug Abuse Patient Records regulations: The Federal rules restrict any use of the information to criminally investigate or prosecute any alcohol or drug abuse patient.[facility] ColumbusIn the event this information is protected by the Federal Confidentiality of Alcohol and Drug Abuse Patient Records regulations: The Federal rules restrict any use of the information to criminally investigate or prosecute any alcohol or drug abuse patient.[facility] ColumbusIn the event this information is protected by the Federal Confidentiality of Alcohol and Drug Abuse Patient Records regulations: The Federal rules restrict any use of the information to criminally investigate or prosecute any alcohol or drug abuse patient.[facility] ColumbusIn the event this information is protected by the Federal Confidentiality of Alcohol and Drug Abuse Patient Records regulations: The Federal rules restrict any use of the information to criminally investigate or prosecute any alcohol or drug abuse patient.[facility] ColumbusIn the event this information is protected by the Federal Confidentiality of Alcohol and Drug Abuse Patient Records regulations: The Federal rules restrict any use of the information to criminally investigate or prosecute any alcohol or drug abuse patient.[facility] ColumbusIn the event this information is protected by the Federal Confidentiality of Alcohol and Drug Abuse Patient Records regulations: The Federal rules restrict any use of the information to criminally investigate or prosecute any alcohol or drug abuse patient.[facility] ColumbusIn the event this information is protected by the Federal Confidentiality of Alcohol and Drug Abuse Patient Records regulations: The Federal rules restrict any use of the information to criminally investigate or prosecute any alcohol or drug abuse patient.[facility] ColumbusIn the event this information is protected by the Federal Confidentiality of Alcohol and Drug Abuse Patient Records regulations: The Federal rules restrict any use of the information to criminally investigate or prosecute any alcohol or drug abuse patient.[facility] ColumbusIn the event this information is protected by the Federal Confidentiality of Alcohol and Drug Abuse Patient Records regulations: The Federal rules restrict any use of the information to criminally investigate or prosecute any alcohol or drug abuse patient.[facility] ColumbusIn the event this information is protected by the Federal Confidentiality of Alcohol and Drug Abuse Patient Records regulations: The Federal rules restrict any use of the information to criminally investigate or prosecute any alcohol or drug abuse patient.[facility] ColumbusIn the event this information is protected by the Federal Confidentiality of Alcohol and Drug Abuse Patient Records regulations: The Federal rules restrict any use of the information to criminally investigate or prosecute any alcohol or drug abuse patient.[facility] ColumbusIn the event this information is protected by the Federal Confidentiality of Alcohol and Drug Abuse Patient Records regulations: The Federal rules restrict any use of the information to criminally investigate or prosecute any alcohol or drug abuse patient.[facility] ColumbusIn the event this information is protected by the Federal Confidentiality of Alcohol and Drug Abuse Patient Records regulations: The Federal rules restrict any use of the information to criminally investigate or prosecute any alcohol or drug abuse patient.[facility] ColumbusIn the event this information is protected by the Federal Confidentiality of Alcohol and Drug Abuse Patient Records regulations: The Federal rules restrict any use of the information to criminally investigate or prosecute any alcohol or drug abuse patient.[facility] ColumbusIn the event this information is protected by the Federal Confidentiality of Alcohol and Drug Abuse Patient Records regulations: The Federal rules restrict any use of the information to criminally investigate or prosecute any alcohol or drug abuse patient.[facility] ColumbusIn the event this information is protected by the Federal Confidentiality of Alcohol and Drug Abuse Patient Records regulations: The Federal rules restrict any use of the information to criminally investigate or prosecute any alcohol or drug abuse patient.[facility] ColumbusIn the event this information is protected by the Federal Confidentiality of Alcohol and Drug Abuse Patient Records regulations: The Federal rules restrict any use of the information to criminally investigate or prosecute any alcohol or drug abuse patient.[facility] ColumbusIn the event this information is protected by the Federal Confidentiality of Alcohol and Drug Abuse Patient Records regulations: The Federal rules restrict any use of the information to criminally investigate or prosecute any alcohol or drug abuse patient.[facility] ColumbusIn the event this information is protected by the Federal Confidentiality of Alcohol and Drug Abuse Patient Records regulations: The Federal rules restrict any use of the information to criminally investigate or prosecute any alcohol or drug abuse patient.[facility] ColumbusIn the event this information is protected by the Federal Confidentiality of Alcohol and Drug Abuse Patient Records regulations: The Federal rules restrict any use of the information to criminally investigate or prosecute any alcohol or drug abuse patient.[facility] ColumbusIn the event this information is protected by the Federal Confidentiality of Alcohol and Drug Abuse Patient Records regulations: The Federal rules restrict any use of the information to criminally investigate or prosecute any alcohol or drug abuse patient.[facility] ColumbusIn the event this information is protected by the Federal Confidentiality of Alcohol and Drug Abuse Patient Records regulations: The Federal rules restrict any use of the information to criminally investigate or prosecute any alcohol or drug abuse patient.[facility] ColumbusIn the event this information is protected by the Federal Confidentiality of Alcohol and Drug Abuse Patient Records regulations: The Federal rules restrict any use of the information to criminally investigate or prosecute any alcohol or drug abuse patient.[facility] ColumbusIn the event this information is protected by the Federal Confidentiality of Alcohol and Drug Abuse Patient Records regulations: The Federal rules restrict any use of the information to criminally investigate or prosecute any alcohol or drug abuse patient.[facility] ColumbusIn the event this information is protected by the Federal Confidentiality of Alcohol and Drug Abuse Patient Records regulations: The Federal rules restrict any use of the information to criminally investigate or prosecute any alcohol or drug abuse patient.[facility] ColumbusIn the event this information is protected by the Federal Confidentiality of Alcohol and Drug Abuse Patient Records regulations: The Federal rules restrict any use of the information to criminally investigate or prosecute any alcohol or drug abuse patient.[facility] ColumbusIn the event this information is protected by the Federal Confidentiality of Alcohol and Drug Abuse Patient Records regulations: The Federal rules restrict any use of the information to criminally investigate or prosecute any alcohol or drug abuse patient.[facility] ColumbusIn the event this information is protected by the Federal Confidentiality of Alcohol and Drug Abuse Patient Records regulations: The Federal rules restrict any use of the information to criminally investigate or prosecute any alcohol or drug abuse patient.[facility] ColumbusIn the event this information is protected by the Federal Confidentiality of Alcohol and Drug Abuse Patient Records regulations: The Federal rules restrict any use of the information to criminally investigate or prosecute any alcohol or drug abuse patient.[facility] ColumbusIn the event this information is protected by the Federal Confidentiality of Alcohol and Drug Abuse Patient Records regulations: The Federal rules restrict any use of the information to criminally investigate or prosecute any alcohol or drug abuse patient.[facility] ColumbusIn the event this information is protected by the Federal Confidentiality of Alcohol and Drug Abuse Patient Records regulations: The Federal rules restrict any use of the information to criminally investigate or prosecute any alcohol or drug abuse patient.[facility] ColumbusIn the event this information is protected by the Federal Confidentiality of Alcohol and Drug Abuse Patient Records regulations: The Federal rules restrict any use of the information to criminally investigate or prosecute any alcohol or drug abuse patient.[facility] ColumbusIn the event this information is protected by the Federal Confidentiality of Alcohol and Drug Abuse Patient Records regulations: The Federal rules restrict any use of the information to criminally investigate or prosecute any alcohol or drug abuse patient.[facility] ColumbusIn the event this information is protected by the Federal Confidentiality of Alcohol and Drug Abuse Patient Records regulations: The Federal rules restrict any use of the information to criminally investigate or prosecute any alcohol or drug abuse patient.[facility] ColumbusIn the event this information is protected by the Federal Confidentiality of Alcohol and Drug Abuse Patient Records regulations: The Federal rules restrict any use of the information to criminally investigate or prosecute any alcohol or drug abuse patient.[facility] ColumbusIn the event this information is protected by the Federal Confidentiality of Alcohol and Drug Abuse Patient Records regulations: The Federal rules restrict any use of the information to criminally investigate or prosecute any alcohol or drug abuse patient.[facility] ColumbusIn the event this information is protected by the Federal Confidentiality of Alcohol and Drug Abuse Patient Records regulations: The Federal rules restrict any use of the information to criminally investigate or prosecute any alcohol or drug abuse patient.[facility] ColumbusIn the event this information is protected by the Federal Confidentiality of Alcohol and Drug Abuse Patient Records regulations: The Federal rules restrict any use of the information to criminally investigate or prosecute any alcohol or drug abuse patient.[facility] ColumbusIn the event this information is protected by the Federal Confidentiality of Alcohol and Drug Abuse Patient Records regulations: The Federal rules restrict any use of the information to criminally investigate or prosecute any alcohol or drug abuse patient.[facility] ColumbusIn the event this information is protected by the Federal Confidentiality of Alcohol and Drug Abuse Patient Records regulations: The Federal rules restrict any use of the information to criminally investigate or prosecute any alcohol or drug abuse patient.[facility] ColumbusIn the event this information is protected by the Federal Confidentiality of Alcohol and Drug Abuse Patient Records regulations: The Federal rules restrict any use of the information to criminally investigate or prosecute any alcohol or drug abuse patient.[facility] ColumbusIn the event this information is protected by the Federal Confidentiality of Alcohol and Drug Abuse Patient Records regulations: The Federal rules restrict any use of the information to criminally investigate or prosecute any alcohol or drug abuse patient.[facility] ColumbusIn the event this information is protected by the Federal Confidentiality of Alcohol and Drug Abuse Patient Records regulations: The Federal rules restrict any use of the information to criminally investigate or prosecute any alcohol or drug abuse patient.[facility] the event this information is protected by the Federal Confidentiality of Alcohol and Drug Abuse Patient Records regulations: The Federal rules restrict any use of the information to criminally investigate or prosecute any alcohol or drug abuse patient.[facility] ColumbusIn the event this information is protected by the Federal Confidentiality of Alcohol and Drug Abuse Patient Records regulations: The Federal rules restrict any use of the information to criminally investigate or prosecute any alcohol or drug abuse patient.[facility] ColumbusIn the event this information is protected by the Federal Confidentiality of Alcohol and Drug Abuse Patient Records regulations: The Federal rules restrict any use of the information to criminally investigate or prosecute any alcohol or drug abuse patient.[facility] ColumbusIn the event this information is protected by the Federal Confidentiality of Alcohol and Drug Abuse Patient Records regulations: The Federal rules restrict any use of the information to criminally investigate or prosecute any alcohol or drug abuse patient.[facility] ColumbusIn the event this information is protected by the Federal Confidentiality of Alcohol and Drug Abuse Patient Records regulations: The Federal rules restrict any use of the information to criminally investigate or prosecute any alcohol or drug abuse patient.[facility] ColumbusIn the event this information is protected by the Federal Confidentiality of Alcohol and Drug Abuse Patient Records regulations: The Federal rules restrict any use of the information to criminally investigate or prosecute any alcohol or drug abuse patient.[facility] ColumbusIn the event this information is protected by the Federal Confidentiality of Alcohol and Drug Abuse Patient Records regulations: The Federal rules restrict any use of the information to criminally investigate or prosecute any alcohol or drug abuse patient.[facility] ColumbusIn the event this information is protected by the Federal Confidentiality of Alcohol and Drug Abuse Patient Records regulations: The Federal rules restrict any use of the information to criminally investigate or prosecute any alcohol or drug abuse patient.[facility] ColumbusIn the event this information is protected by the Federal Confidentiality of Alcohol and Drug Abuse Patient Records regulations: The Federal rules restrict any use of the information to criminally investigate or prosecute any alcohol or drug abuse patient.[facility] ColumbusIn the event this information is protected by the Federal Confidentiality of Alcohol and Drug Abuse Patient Records regulations: The Federal rules restrict any use of the information to criminally investigate or prosecute any alcohol or drug abuse patient.[facility] ColumbusIn the event this information is protected by the Federal Confidentiality of Alcohol and Drug Abuse Patient Records regulations: The Federal rules restrict any use of the information to criminally investigate or prosecute any alcohol or drug abuse patient.[facility] ColumbusIn the event this information is protected by the Federal Confidentiality of Alcohol and Drug Abuse Patient Records regulations: The Federal rules restrict any use of the information to criminally investigate or prosecute any alcohol or drug abuse patient.[facility] ColumbusIn the event this information is protected by the Federal Confidentiality of Alcohol and Drug Abuse Patient Records regulations: The Federal rules restrict any use of the information to criminally investigate or prosecute any alcohol or drug abuse patient.[facility] ColumbusIn the event this information is protected by the Federal Confidentiality of Alcohol and Drug Abuse Patient Records regulations: The Federal rules restrict any use of the information to criminally investigate or prosecute any alcohol or drug abuse patient.[facility] ColumbusIn the event this information is protected by the Federal Confidentiality of Alcohol and Drug Abuse Patient Records regulations: The Federal rules restrict any use of the information to criminally investigate or prosecute any alcohol or drug abuse patient.[facility] ColumbusIn the event this information is protected by the Federal Confidentiality of Alcohol and Drug Abuse Patient Records regulations: The Federal rules restrict any use of the information to criminally investigate or prosecute any alcohol or drug abuse patient.[facility] ColumbusIn the event this information is protected by the Federal Confidentiality of Alcohol and Drug Abuse Patient Records regulations: The Federal rules restrict any use of the information to criminally investigate or prosecute any alcohol or drug abuse patient.[facility] ColumbusIn the event this information is protected by the Federal Confidentiality of Alcohol and Drug Abuse Patient Records regulations: The Federal rules restrict any use of the information to criminally investigate or prosecute any alcohol or drug abuse patient.[facility] ColumbusIn the event this information is protected by the Federal Confidentiality of Alcohol and Drug Abuse Patient Records regulations: The Federal rules restrict any use of the information to criminally investigate or prosecute any alcohol or drug abuse patient.[facility] ColumbusIn the event this information is protected by the Federal Confidentiality of Alcohol and Drug Abuse Patient Records regulations: The Federal rules restrict any use of the information to criminally investigate or prosecute any alcohol or drug abuse patient.[facility] ColumbusIn the event this information is protected by the Federal Confidentiality of Alcohol and Drug Abuse Patient Records regulations: The Federal rules restrict any use of the information to criminally investigate or prosecute any alcohol or drug abuse patient.[facility] ColumbusIn the event this information is protected by the Federal Confidentiality of Alcohol and Drug Abuse Patient Records regulations: The Federal rules restrict any use of the information to criminally investigate or prosecute any alcohol or drug abuse patient.[facility] ColumbusIn the event this information is protected by the Federal Confidentiality of Alcohol and Drug Abuse Patient Records regulations: The Federal rules restrict any use of the information to criminally investigate or prosecute any alcohol or drug abuse patient.[facility] ColumbusIn the event this information is protected by the Federal Confidentiality of Alcohol and Drug Abuse Patient Records regulations: The Federal rules restrict any use of the information to criminally investigate or prosecute any alcohol or drug abuse patient.[facility] ColumbusIn the event this information is protected by the Federal Confidentiality of Alcohol and Drug Abuse Patient Records regulations: The Federal rules restrict any use of the information to criminally investigate or prosecute any alcohol or drug abuse patient.[facility] ColumbusIn the event this information is protected by the Federal Confidentiality of Alcohol and Drug Abuse Patient Records regulations: The Federal rules restrict any use of the information to criminally investigate or prosecute any alcohol or drug abuse patient.[facility] [place] Reason for Visit (unrecogniz ed section and content) Reason Comments Radiotherapy On-treatment Visit Reason Comments Prostate Cancer Reason Comments Appointment Reason Comments Received Outside Medical Records Reason Comments Consult Reason Comments Radiology NM Specialty Diagnoses / Procedures Referred By Jordon rao Referred To Contact MOLECULAR & FUNCTIONAL IMAGING Diagnoses Chronic systolic heart failure (HCC) 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 Procedures NM PET/CT CARDIAC PERF REST/STRESS MYOCRD IMG PET PRFUJ LEASE ADMINISTRATION ANALYST STD RST & STRS CNCRNT CT Zahra Pierre MD [address] [place] [address] Molecular & Functional Imaging [address] [id number] Referral ID Status Reason Start Date Expiration Date V isits Requested Visits Authorized [id number] Closed Auto-Generate d Referral 09/06/2022 10/06/2023 1 [...] Mitral Regurgitation Associated with Heart Failure PI: [email or web address] Reason Comments Consult Reason Comments Medication Question [...] Referred By Jordon t Referred To Contact [facility] IN[facility]IENT Diagnoses Mitral valve insufficiency, unspecified etiology to be admitted prior on 02/14 and will remain in the house for the procedure. Mitral Valve Transcatheter Savl-ee-Fxjw Repair (M-AZAEL) w/ [employer] MitraClip Procedure on: 02/18/24 at 10:30 am Procedures TCAT MITRAL VALVE REPAIR INITIAL PROSTHESIS TRANSCATHETER MITRAL VALVE REPAIR PERCUTANEOUS INCLUDE TRANSSEPTAL PUNCTURE WHEN PERFORMED INITIAL PROSTHESIS IV Fluids/Drips, IV Lock [facility] Main [address] [place] [address] Referral ID Status Reason Start Date Expiration Date Visits Re quested Visits Authorized [id number] 1 1 Reason Comments Amaurosis fugax Reason Comments Patient Update Pre admission Reason Comments TIA Specialty Diagnoses / Procedures Referred By Contac t Referred To Contact Diagnoses TIA Procedures N/A [facility] Main [address]a [address] [place] [address] Referral ID Status Reason Start Date Expiration Date Visits Re quested Visits Authorized [id number] 1 1 Reason Comments Hospital Discharge Specialty Diagnoses / Procedures Referred By Contac t Referred To Contact [facility] [place] Procedures CARDIOVASCULAR MEDICINE OP FOLLOW UP APPT ORDER Efren Brady MD [address] [place] [address] [place] [address] Referral ID Status Reason Start Date Expiration Date Visits Requested Visits Authorized [id number] Ref Not Required PCP Requested Referral 03/26/2024 [...] GAMALIEL IMRT 39 fractions Yung Andrade MD [address] [place] [id number] [place] [address] Yung Andrade MD [address] [place] [address] [place] [address] Referral ID Status Reason Start Date Expiration Date Visits Re quested Visits Authorized [id number] Closed 10/12/2021 09/15/2022 [address] Specialty Diagnoses / Procedures Referred By Contac t Referred To Contact CT IMAGING Diagnoses Lung nodules Procedures CT CHEST W IVCON CAT SCAN OF CHEST CONTRAST Vcitor M Duval MD [address] [place] [address] [place] [address] [place] [address] Referral ID Status Reason Start Date Expiration Date V isits Requested Visits Authorized [id number] Closed Auto-Generate d Referral 09/05/2021 10/05/2022 1 [...] patient to return to Cardiac Rehab at [facility]. Reason Comments Schedule Surgery [facility] Reason Comments Nail care José Miguel Antonio Jr. is a 84 y.o. male who presents for Toenail Care. Pt is here today with his daughter for nail care, he is not diabetic. His last A1c 5.6/SS: 11 Reason Comments Patient Update Future Appointment Lab Orders Reason Comments Outside Labs-[facility] Ordered Outside labs lamont baca 02/22/25 from [facility], scanned into [employer] for review Care Teams (unrecognized sec tion and content) Guest Advisor Relationship Specialty Start Date End Date Samm Thompson MD PCP - General Family Practice 05/30/12 Tom Gonzalez [address] [place] [address] Primary Staff Physician Cardiology 12/02/18 Guest Advisor Relationship Specialty Start Date End Date Samm Thompson MD PCP - General Family Practice 05/30/12 Tom Gonzalez [address] [place] [address] Primary Staff Physician Cardiology 12/02/18 Guest Advisor Relationship Specialty Start Date End Date Samm Thompson MD PCP - General Family Practice 05/30/12 Carlos, Tom Vagesh [address] [place] [address] Primary Staff Physician Cardiology 12/02/18 Guest Advisor Relationship Specialty Start Date End Date Samm Thompson MD PCP - General Family Practice 05/30/12 Carlos Tom Vagesh [address] [place] [address] Primary Staff Physician Cardiology 12/02/18 Guest Advisor Relationship Specialty Start Date End Date Samm Thompson MD PCP - General Family Practice 05/30/12 Tom Gonzalez Vagesh [address] [place] [address] Primary Staff Physician Cardiology 12/02/18 Guest Advisor Relationship Specialty Start Date End Date Samm Thompson MD PCP - General Family Practice 05/30/12 Tom Gonzalez Vagesh [address] [place] [address] Primary Staff Physician Cardiology 12/02/18 Guest Advisor Relationship Specialty Start Date End Date Samm Thompson MD PCP - General Family Medicine 05/30/12 Carlos, Tom Vagesh [address] [place] [address] Primary Staff Physician Cardiology 12/02/18 Guest Advisor Relationship Specialty Start Date End Date Samm Thompson MD PCP - General Family Medicine 05/30/12 Carlos, Tom Vagesh [address] [place] [address] Primary Staff Physician Cardiology 12/02/18 Guest Advisor Relationship Specialty Start Date End Date Samm Thompson MD PCP - General Family Medicine 05/30/12 Carlos, Tom Vagesh [address] [place] [address] Primary Staff Physician Cardiology 12/02/18 Guest Advisor Relationship Specialty Start Date End Date Samm Thompson MD PCP - General Family Medicine 05/30/12 Tom Gonzalez Vagesh [address] [place] [address] Primary Staff Physician Cardiology 12/02/18 Guest Advisor Relationship Specialty Start Date End Date Samm Thompson MD PCP - General Family Medicine 05/30/12 Tom Gonzalez Vagesh [address] [place] [address] Primary Staff Physician Cardiology 12/02/18 Guest Advisor Relationship Specialty Start Date End Date Samm Thompson MD PCP - General Family Medicine 05/30/12 Yuliet Gonzaleztan Vagesh [address] [place] [address] Primary Staff Physician Cardiology 12/02/18 Guest Advisor Relationship Specialty Start Date End Date Samm Thompson MD PCP - General Family Medicine 05/30/12 Tom Gonzalez Vagesh [address] [place] [address] Primary Staff Physician Cardiology 12/02/18 Guest Advisor Relationship Specialty Start Date End Date Samm Thompson MD PCP - General Family Medicine 05/30/12 [facility], Tom Vagesh [address] [place] [address] Primary Staff Physician Cardiology 12/02/18 Guest Advisor Relationship Specialty Start Date End Date Samm Thompson MD PCP - General Family Medicine 05/30/12 [facility], Tom Vagesh [address] [place] [address] Primary Staff Physician Cardiology 12/02/18 Guest Advisor Relationship Specialty Start Date End Date Samm Thompson MD PCP - General Family Medicine 05/30/12 [facility], Tom Vagesh [address] [place] [address] Primary Staff Physician Cardiology 12/02/18 Guest Advisor Relationship Specialty Start Date End Date Samm Thompson MD PCP - General Family Medicine 05/30/12 [facility] [address] [place] [address] Primary Staff Physician Cardiology 12/02/18 Guest Advisor Relationship Specialty Start Date End Date Samm Thompson MD PCP - General Family Medicine 05/30/12 [facility] Tom Vagesh [address] [place] [address] Primary Staff Physician Cardiology 12/02/18 Guest Advisor Relationship Specialty Start Date End Date Samm Thompson MD PCP - General Family Medicine 05/30/12 Tom Gonzalez [address] [place] [address] Primary Staff Physician Cardiology 12/02/18 Guest Advisor Relationship Specialty Start Date End Date Samm Thompson MD PCP - General Family Medicine 05/30/12 Tom Gonzalez [address] [place] [address] Primary Staff Physician Cardiology 12/02/18 Zahra Pierre MD [address] [place] [address] Primary Staff Physician Cardiology 04/26/23 Guest Advisor Relationship Specialty Start Date End Date Samm Thompson MD PCP - General Family Medicine 05/30/12 Tom Gonzalez [address] [place] [address] Primary Staff Physician Cardiology 12/02/18 Zahra Pierre MD [address] [place] [address] Primary Staff Physician Cardiology 04/26/23 Guest Advisor Relationship Specialty Start Date End Date Samm Thompson MD PCP - General Family Medicine 05/30/12 Tom Gonzalez [address] [place] [address] Primary Staff Physician Cardiology 12/02/18 Zahra Pierre MD [address] [place] [address] Primary Staff Physician Cardiology 04/26/23 Guest Advisor Relationship Specialty Start Date End Date Samm Thompson MD PCP - General Family Medicine 05/30/12 Tom Gonzalez [address] [facility] [place] [address] Primary Staff Physician Cardiology 12/02/18 Zahra Pierre MD [address] [place], [place] [address] Primary Staff Physician Cardiology 04/26/23 Guest Advisor Relationship Specialty Start Date End Date Samm Thompson MD PCP - General Family Medicine 05/30/12 Tom Gonzalez [address] [place] [address] Primary Staff Physician Cardiology 12/02/18 Zahra Pierre MD [address] [place] [address] Primary Staff Physician Cardiology 04/26/23 Virgil Carrillo MD [address] [place], [place] [address] Primary Staff Physician Cardiology 10/29/23 Guest Advisor Relationship Specialty Start Date End Date Samm Thompson MD PCP - General Family Medicine 05/30/12 Tom Gonzalez [address] [place] [address] Primary Staff Physician Cardiology 12/02/18 Zahra Pierre MD [address] [place] [address] Primary Staff Physician Cardiology 04/26/23 Virgil Carrillo MD [address] [place] [address] Primary Staff Physician Cardiology 10/29/23 Guest Advisor Relationship Specialty Start Date End Date Samm Thompson MD PCP - General Family Medicine 05/30/12 Tom Gonzalez [address] [facility] [place] [address] Primary Staff Physician Cardiology 12/02/18 Zahra Pierre MD [address] [place] [address] Primary Staff Physician Cardiology 04/26/23 Virgil Carrillo MD [address] [place] [address] Primary Staff Physician Cardiology 10/29/23 Guest Advisor Relationship Specialty Start Date End Date Samm Thompson MD PCP - General Family Medicine 05/30/12 Tom Gonzalez [address] [place] [address] Primary Staff Physician Cardiology 12/02/18 Zahra Pierre MD [address] [place] [address] Primary Staff Physician Cardiology 04/26/23 Virgil Carrillo MD [address] [place] [address] Primary Staff Physician Cardiology 10/29/23 Guest Advisor Relationship Specialty Start Date End Date Samm Thompson MD PCP - General Family Medicine 05/30/12 Tom Gonzalez [address] [facility] [place] [address] Primary Staff Physician Cardiology 12/02/18 Zahra Pierre MD [address] [place] [address] Primary Staff Physician Cardiology 04/26/23 Virgil Carrillo MD [address] [place] [address] Primary Staff Physician Cardiology 10/29/23 Guest Advisor Relationship Specialty Start Date End Date Samm Thompson MD PCP - General Family Medicine 05/30/12 [facility] [address] [place], [place] [address] Primary Staff Physician Cardiology 12/02/18 Zahra Pierre MD [address] [facility] [place] [address] Primary Staff Physician Cardiology 04/26/23 Virgil Carrillo MD [address] [place] [address]- Primary Staff Physician Cardiology 10/29/23 Guest Advisor Relationship Specialty Start Date End Date Samm Thompson MD PCP - General Family Medicine 05/30/12 Tom Gonzalez [address] [place] [address] Primary Staff Physician Cardiology 12/02/18 Zahra Pierre MD [address] [place], [place] [address] Primary Staff Physician Cardiology 04/26/23 Virgil Carrillo MD [address] [place] [address] Primary Staff Physician Cardiology 10/29/23 Efren Brady MD [address] [place] [address] Primary Staff Physician Cardiology 12/26/23 Guest Advisor Relationship Specialty Start Date End Date Samm Thompson MD PCP - General Family Medicine 05/30/12 Tom Gonzalez [address] [place] [address] Primary Staff Physician Cardiology 12/02/18 Zahra Pierre MD [address] [place], [place] [address] Primary Staff Physician Cardiology 04/26/23 Virgil Carrillo MD [address] [place] [address] Primary Staff Physician Cardiology 10/29/23 Efren Brady MD [address] [place] [address] Primary Staff Physician Cardiology 12/26/23 Guest Advisor Relationship Specialty Start Date End Date Samm Thompson MD PCP - General Family Medicine 05/30/12 Tom Gonzalez [address] [facility] [place] [address] Primary Staff Physician Cardiology 12/02/18 Zahra Pierre MD [address] [place] [address] Primary Staff Physician Cardiology 04/26/23 Virgil Carrillo MD [address] [place] [address] Primary Staff Physician Cardiology 10/29/23 Efren Brady MD [address] [place] [address] Primary Staff Physician Cardiology 12/26/23 Guest Advisor Relationship Specialty Start Date End Date Samm Thompson MD PCP - General Family Medicine 05/30/12 Tom Gonzalez [address] [facility] [place] [address] Primary Staff Physician Cardiology 12/02/18 Zahra Pierre MD [address] [place] [address] Primary Staff Physician Cardiology 04/26/23 Virgil Carrillo MD [address] [place] [id number] Primary Staff Physician Cardiology 10/29/23 Efren Brady MD [address] [facility] [place] [address] Primary Staff Physician Cardiology 12/26/23 Guest Advisor Relationship Specialty Start Date End Date Samm Thompson MD PCP - General Family Medicine 05/30/12 Tom Gonzalez [address] [place], [place] [address] [address] Primary Staff Physician Cardiology 12/02/18 Zahra Pierre MD [facility] [place] [address] Primary Staff Physician Cardiology 04/26/23 Virgil Carrillo MD [address] [place] [address] Primary Staff Physician Cardiology 10/29/23 Efren Brady MD [address] [place] [address] Primary Staff Physician Cardiology 12/26/23 Paulina Fernandes MD [address] [place] [address] Primary Staff Physician Cardiology 01/10/24 Guest Advisor Relationship Specialty Start Date End Date Samm Thompson MD PCP - General Family Medicine 05/30/12 Carlos [facility] [address] [place] [address] Primary Staff Physician Cardiology 12/02/18 Zahra Pierre MD [address] [facility] [place] [address] Primary Staff Physician Cardiology 04/26/23 Virgil Carrillo MD [address] [place] [address] Primary Staff Physician Cardiology 10/29/23 Efren Brady MD [address] [facility] [place] [address] Primary Staff Physician Cardiology 12/26/23 Paulina Fernandes MD [address] [place] [address] Primary Staff Physician Cardiology 01/10/24 Guest Advisor Relationship Specialty Start Date End Date Samm Thompson MD PCP - General Family Medicine 05/30/12 [facility] [address] [facility] [place] [address] Primary Staff Physician Cardiology 12/02/18 Zahra Pierre MD [address] [place] [address] Primary Staff Physician Cardiology 04/26/23 Virgil Carrillo MD [address] [place] [address] Primary Staff Physician Cardiology 10/29/23 Efren Brayd MD [address] [place] [address] Primary Staff Physician Cardiology 12/26/23 Paulina Fernandes MD [address] [place] [address] Primary Staff Physician Cardiology 01/10/24 Guest Advisor Relationship Specialty Start Date End Date Samm Thompson MD PCP - General Family Medicine 05/30/12 Tom Gonzalez [facility] [place] [address] Primary Staff Physician Cardiology 12/02/18 Zahra Pierre MD [address] [facility] [place] [address] Primary Staff Physician Cardiology 04/26/23 Virgil Carrillo MD [address] [place] [address] Primary Staff Physician Cardiology 10/29/23 Efren Brady MD [address] [place] [address] Primary Staff Physician Cardiology 12/26/23 Paulina Fernandes MD [address] [place] [address] Primary Staff Physician Cardiology 01/10/24 Guest Advisor Relationship Specialty Start Date End Date Samm Thompson MD PCP - General Family Medicine 05/30/12 Tom Gonzalez [address] [place] [address] Primary Staff Physician Cardiology 12/02/18 Zahra Pierre MD [address] [place] [address] Primary Staff Physician Cardiology 04/26/23 Virgil Carrillo MD [address] [place] [address] Primary Staff Physician Cardiology 10/29/23 Efren Brady MD [address] [facility] [place] [address] Primary Staff Physician Cardiology 12/26/23 Paulina Fernandes MD [address] [place] [address] Primary Staff Physician Cardiology 01/10/24 Guest Advisor Relationship Specialty Start Date End Date Samm Thompson MD PCP - General Family Medicine 05/30/12 [facility] [address] [place] [address] Primary Staff Physician Cardiology 12/02/18 Zahra Pierre MD [address] [facility] [place] [address] Primary Staff Physician Cardiology 04/26/23 Virgil Carrillo MD [address] [place] [address] Primary Staff Physician Cardiology 10/29/23 Efren Brady MD [address] [place] [address] Primary Staff Physician Cardiology 12/26/23 Paulina Fernandes MD [address] [place] [address] Primary Staff Physician Cardiology 01/10/24 Guest Advisor Relationship Specialty Start Date End Date Samm Thompson MD PCP - General Family Medicine 05/30/12 Tom Gonzalez [address] [place], [place] [address] [address] Primary Staff Physician Cardiology 12/02/18 Zahra Pierre MD [address] [place] [address] Primary Staff Physician Cardiology 04/26/23 Virgil Carrilol MD [address] [place] [address] Primary Staff Physician Cardiology 10/29/23 Efren Brady MD [address] [place] [address] Primary Staff Physician Cardiology 12/26/23 Paulina Fernandes MD [address] [place] [address] Primary Staff Physician Cardiology 01/10/24 Guest Advisor Relationship Specialty Start Date End Date Samm Thompson MD PCP - General Family Medicine 05/30/12 Tom Gonzalez [address] [place] [address] Primary Staff Physician Cardiology 12/02/18 Zahra Pierre MD [address] [place] [address] Primary Staff Physician Cardiology 04/26/23 Virgil Carrillo MD [address] [place] [address] Primary Staff Physician Cardiology 10/29/23 Efren Brady MD [address] [facility] [place] [address] Primary Staff Physician Cardiology 12/26/23 Paulina Fernandes MD [address] [place] [address] Primary Staff Physician Cardiology 01/10/24 Guest Advisor Relationship Specialty Start Date End Date Samm Thompson MD PCP - General Family Medicine 05/30/12 Tom Gonzalez [address] [place] [address] Primary Staff Physician Cardiology 12/02/18 Zahra Pierre MD [address] [facility] [place] [address] Primary Staff Physician Cardiology 04/26/23 Virgil Carrillo MD [address] [place] [address] Primary Staff Physician Cardiology 10/29/23 Efren Brady MD [address] [place] [address] Primary Staff Physician Cardiology 12/26/23 Paulina Fernandes MD [address] [place] [address] Primary Staff Physician Cardiology 01/10/24 Guest Advisor Relationship Specialty Start Date End Date Samm Thompson MD PCP - General Family Medicine 05/30/12 Tom Gonzalez [address] [facility]ADIR[facility] [place] [address] Primary Staff Physician Cardiology 12/02/18 Zahra Pierre MD [address] [place] [address] Primary Staff Physician Cardiology 04/26/23 Virgil Carrillo MD [address] [place] [address] Primary Staff Physician Cardiology 10/29/23 Efren Brady MD [address] [place] [address] Primary Staff Physician Cardiology 12/26/23 Paulina Fernandes MD [address] [place] [address] Primary Staff Physician Cardiology 01/10/24 Guest Advisor Relationship Specialty Start Date End Date Samm Thompson MD PCP - General Family Medicine 05/30/12 Tom Gonzalez [address] [place] [address] Primary Staff Physician Cardiology 12/02/18 Zahra Pierre MD [address] [place] [address] Primary Staff Physician Cardiology 04/26/23 Vrigil Carrillo MD [address] [place] [address] Primary Staff Physician Cardiology 10/29/23 Efren Brady MD [address] [place] [address] Primary Staff Physician Cardiology 12/26/23 Paulina Fernandes MD [address] [place] [address] Primary Staff Physician Cardiology 01/10/24 Guest Advisor Relationship Specialty Start Date End Date Samm Thompson MD PCP - General Family Medicine 05/30/12 Tom Gonzalez [address] [place] [address] Primary Staff Physician Cardiology 12/02/18 Zahra Pierre MD [address] [place] [address] Primary Staff Physician Cardiology 04/26/23 Virgil Carrillo MD [address] [place] [address] Primary Staff Physician Cardiology 10/29/23 Efren Brady MD [address] [place] [address] Primary Staff Physician Cardiology 12/26/23 Paulina Fernandes MD [address] [place] [address] Primary Staff Physician Cardiology 01/10/24 Guest Advisor Relationship Specialty Start Date End Date Samm Thompson MD PCP - General Family Medicine 05/30/12 Tom Gonzalez [address] [facility] [place] [place] [address] Primary Staff Physician Cardiology 12/02/18 Zahra Pierre MD [address] [place] [address] Primary Staff Physician Cardiology 04/26/23 Virgil Carrillo MD [address] [place] [address] Primary Staff Physician Cardiology 10/29/23 Efren Brady MD [address] [place] [address] Primary Staff Physician Cardiology 12/26/23 Paulina Fernandes MD [address] [place] [address] Primary Staff Physician Cardiology 01/10/24 Guest Advisor Relationship Specialty Start Date End Date Samm Thompson MD PCP - General Family Medicine 05/30/12 Tom Gonzalez [address] [place] [address] Primary Staff Physician Cardiology 12/02/18 Zahra Pierre MD [address] [place] [address] Primary Staff Physician Cardiology 04/26/23 Virgil Carrillo MD [address] [place] [address] Primary Staff Physician Cardiology 10/29/23 Efren Brady MD [address] [facility] [place] [address] Primary Staff Physician Cardiology 12/26/23 Paulina Fernandes MD [address] [place] [address] Primary Staff Physician Cardiology 01/10/24 Guest Advisor Relationship Specialty Start Date End Date Samm Thompson MD PCP - General Family Medicine 05/30/12 Tom Gonzalez [address] [place] [address] Primary Staff Physician Cardiology 12/02/18 Zahra Pierre MD [address] [place] [address] Primary Staff Physician Cardiology 04/26/23 Virgil Carrillo MD [address] [place], [place] [id number] Primary Staff Physician Cardiology 10/29/23 Efren Brady MD [address] [place] [address] Primary Staff Physician Cardiology 12/26/23 Paulina Fernandes MD [address] [place] [address] Primary Staff Physician Cardiology 01/10/24 Guest Advisor Relationship Specialty Start Date End Date Samm Thompson MD PCP - General Family Medicine 05/30/12 Tom Gonzalez [address] [place] [address] Primary Staff Physician Cardiology 12/02/18 Zahra Pierre MD [address] [place] [address] Primary Staff Physician Cardiology 04/26/23 Virgil Carrillo MD [address] [place] [address] Primary Staff Physician Cardiology 10/29/23 Efren Brady MD [address] [place] [address] Primary Staff Physician Cardiology 12/26/23 Paulina Fernandes MD [address] [place] [address] Primary Staff Physician Cardiology 01/10/24 Guest Advisor Relationship Specialty Start Date End Date Samm Thompson MD PCP - General Family Medicine 05/30/12 Tom Gonzalez [address] [place] [address] Primary Staff Physician Cardiology 12/02/18 Zahra Pierre MD [address] [place] [id number] Primary Staff Physician Cardiology 04/26/23 Virgil Carrillo MD [address] [place] [id number] Primary Staff Physician Cardiology 10/29/23 Efren Brady MD [address] [place] [phone] Primary Staff Physician Cardiology 12/26/23 Paulina Fernandes MD [address] [place] [id number] Primary Staff Physician Cardiology 01/10/24 Guest Advisor Relationship Specialty Start Date End Date Samm Thompson MD PCP - General Family Medicine 05/30/12 Tom Gonzalez [address] [place] [address] Primary Staff Physician Cardiology 12/02/18 Zahra Pierre MD [address] [place] [phone] Primary Staff Physician Cardiology 04/26/23 Virgil Carrillo MD [address] [place] [address] Primary Staff Physician Cardiology 10/29/23 Efren Brady MD [address] [place] [address] Primary Staff Physician Cardiology 12/26/23 Paulina Fernandes MD [address] [place] [address] Primary Staff Physician Cardiology 01/10/24 Guest Advisor Relationship Specialty Start Date End Date Samm Thompson MD PCP - General Family Medicine 05/30/12 Tom Gonzalez [address] [facility] [place] [address] Primary Staff Physician Cardiology 12/02/18 Zahra Pierre MD [address] [place] [address] Primary Staff Physician Cardiology 04/26/23 Virgil Carrillo MD [address] [place] [place] [id number] Primary Staff Physician Cardiology 10/29/23 Efren Brady MD [address] [place] [address] Primary Staff Physician Cardiology 12/26/23 Carmela Fernandes MD [address] [place] [address] Primary Staff Physician Cardiology 01/10/24 Guest Advisor Relationship Specialty Start Date End Date Samm Thompson MD PCP - General Family Medicine 05/30/12 Tom Gonzalez [address] [facility] [place] [address] Primary Staff Physician Cardiology 12/02/18 Zahra Pierre MD [address] [place] [address] Primary Staff Physician Cardiology 04/26/23 Virgil Carrillo MD [address] [place] [address] Primary Staff Physician Cardiology 10/29/23 Efren Brady MD [address] [place], [place] 1281095 Primary Staff Physician Cardiology 12/26/23 Carmela Fernandes MD [facility] [place] [address] Primary Staff Physician Cardiology 01/10/24 Guest Advisor Relationship Specialty Start Date End Date Samm Thompson MD PCP - General Family Medicine 05/30/12 Tom Gonzalez [address] [place], [place] [address] [address] Primary Staff Physician Cardiology 12/02/18 Zahra Pierre MD [address] [place] [address] Primary Staff Physician Cardiology 04/26/23 Virgil Carrillo MD [address] [place], [place] 2136195 Primary Staff Physician Cardiology 10/29/23 Erfen Brady MD [address] [place], [place] 6082395 Primary Staff Physician Cardiology 12/26/23 Carmela Fernandes MD [address] [place] [address] Primary Staff Physician Cardiology 01/10/24 Guest Advisor Relationship Specialty Start Date End Date Samm Thompson MD PCP - General Family Medicine 05/30/12 Tom Gonzalez [address] [place] [address] Primary Staff Physician Cardiology 12/02/18 Zahra Pierre MD [address] [place] [address] Primary Staff Physician Cardiology 04/26/23 Virgil Carrillo MD [address] [place] [address] Primary Staff Physician Cardiology 10/29/23 Efren Brady MD [address] [place] [address] Primary Staff Physician Cardiology 12/26/23 Carmela Fernandes MD [address] [place] [address] Primary Staff Physician Cardiology 01/10/24 Guest Advisor Relationship Specialty Start Date End Date Samm Thompson MD PCP - General Family Medicine 05/30/12 Tom Gonzalez [address] [place] [address] Primary Staff Physician Cardiology 12/02/18 Guest Advisor Relationship Specialty Start Date End Date Samm Thompson MD PCP - General Family Medicine 05/30/12 Tom Gonzalez [address] [place] [address] Primary Staff Physician Cardiology 12/02/18 Guest Advisor Relationship Specialty Start Date End Date Samm Thompson MD PCP - General Family Medicine 05/30/12 Tom Gonzalez [address] [place] [address] Primary Staff Physician Cardiology 12/02/18 Zahra Pierre MD [address] [place] [address] Primary Staff Physician Cardiology 04/26/23 Virgil Carrillo MD [address] [place] [phone] Primary Staff Physician Cardiology 10/29/23 Efren Brady MD [address] [place] [address] Primary Staff Physician Cardiology 12/26/23 Carmela Fernandes MD [address] [place] [address] Primary Staff Physician Cardiology 01/10/24 Guest Advisor Relationship Specialty Start Date End Date Samm Thompson MD PCP - General Family Medicine 05/30/12 Tom Gonzalez [address] [place] [address] Primary Staff Physician Cardiology 12/02/18 Zahra Pierre MD [address] [place] [address] Primary Staff Physician Cardiology 04/26/23 Virgil Carrillo MD [address] [place] [address] Primary Staff Physician Cardiology 10/29/23 Efren Brady MD [address] [place] [address] Primary Staff Physician Cardiology 12/26/23 Carmela Fernandes MD [address] [place] [address] Primary Staff Physician Cardiology 01/10/24 Guest Advisor Relationship Specialty Start Date End Date Samm Thompson MD PCP - General Family Medicine 05/30/12 [facility] [address] [place] [address] Primary Staff Physician Cardiology 12/02/18 Zahra Pierre MD [address] [place] [address] Primary Staff Physician Cardiology 04/26/23 Virgil Carrillo MD [address] [place] [address] Primary Staff Physician Cardiology 10/29/23 Efren Brady MD [address] [place] [address] Primary Staff Physician Cardiology 12/26/23 Carmela Fernandes MD [address] [place] [address] Primary Staff Physician Cardiology 01/10/24 Guest Advisor Relationship Specialty Start Date End Date Samm Thompson MD PCP - General Family Medicine 05/30/12 Tom Gonzalez [address] [facility] [place] [address] Primary Staff Physician Cardiology 12/02/18 Zahra Pierre MD [address] [place] [phone] Primary Staff Physician Cardiology 04/26/23 Virgil Carrillo MD [address] [place] [address] Primary Staff Physician Cardiology 10/29/23 Efren Brady MD [address] [place] [address] Primary Staff Physician Cardiology 12/26/23 Carmela Fernandes MD [address] [place] [address] Primary Staff Physician Cardiology 01/10/24 Guest Advisor Relationship Specialty Start Date End Date Samm Thompson MD PCP - General Family Medicine 05/30/12 Tom Gonzalez [address] [place] [address] Primary Staff Physician Cardiology 12/02/18 Zahra Pierre MD [address] [place] [address] Primary Staff Physician Cardiology 04/26/23 Virgil Carrillo MD [address] [place] [phone] Primary Staff Physician Cardiology 10/29/23 Efren Brady MD [address] [place] [phone] Primary Staff Physician Cardiology 12/26/23 Carmela Fernandes MD [address] [place] [address] Primary Staff Physician Cardiology 01/10/24 Guest Advisor Relationship Specialty Start Date End Date Samm Thompson MD PCP - General Family Medicine 05/30/12 Tom Gonzalez [address] [place] [address] Primary Staff Physician Cardiology 12/02/18 Zahra Pierre MD [address] [place] [address] Primary Staff Physician Cardiology 04/26/23 Virgil Carrillo MD [address] [place] [address] Primary Staff Physician Cardiology 10/29/23 Efren Brady MD [address] [place] [address] Primary Staff Physician Cardiology 12/26/23 Carmela Fernandes MD [address] [place] [address] Primary Staff Physician Cardiology 01/10/24 Guest Advisor Relationship Specialty Start Date End Date Samm Thompson MD PCP - General Family Medicine 05/30/12 Tom Gonzalez [address] [facility] [place] [address] Primary Staff Physician Cardiology 12/02/18 Zahra Pierre MD [address] [place] [phone] Primary Staff Physician Cardiology 04/26/23 Virgil Carrillo MD [address] [place] [address] Primary Staff Physician Cardiology 10/29/23 Efren Brady MD [address] [place] [address] Primary Staff Physician Cardiology 12/26/23 Carmela Fernandes MD [address] [place] [address] Primary Staff Physician Cardiology 01/10/24 Guest Advisor Relationship Specialty Start Date End Date Samm Thompson MD PCP - General Family Medicine 05/30/12 Tom Gonzalez [address] [place] [address] Primary Staff Physician Cardiology 12/02/18 Zahra Pierre MD [address] [place] [address] Primary Staff Physician Cardiology 04/26/23 Virgil Carrillo MD [address] [place] [address] Primary Staff Physician Cardiology 10/29/23 Efren Brady MD [address] [place] [address] Primary Staff Physician Cardiology 12/26/23 Carmela Fernandes MD [address] [place] [address] Primary Staff Physician Cardiology 01/10/24 Guest Advisor Relationship Specialty Start Date End Date Samm Thompson MD PCP - General Family Medicine 05/30/12 Tom Gonzalez [address] [place] [address] Primary Staff Physician Cardiology 12/02/18 Zahra Pierre MD [address] [place] [phone] Primary Staff Physician Cardiology 04/26/23 Virgil Carrillo MD [address] [place] [address] Primary Staff Physician Cardiology 10/29/23 Efren Brady MD [address] [place], [place] 3783295 Primary Staff Physician Cardiology 12/26/23 Carmela Fernandes MD [address] [place] [address] Primary Staff Physician Cardiology 01/10/24 Guest Advisor Relationship Specialty Start Date End Date Samm Thompson MD PCP - General Family Medicine 05/30/12 Tom Gonzalez [address] [place] [address] Primary Staff Physician Cardiology 12/02/18 Zahra Pierre MD [address] [place] [address] Primary Staff Physician Cardiology 04/26/23 Virgil Carrillo MD [address] [place] [address] Primary Staff Physician Cardiology 10/29/23 Efren Brady MD [address] [place] [address] Primary Staff Physician Cardiology 12/26/23 Carmela Fernandes MD [address] [place] [address] Primary Staff Physician Cardiology 01/10/24 Guest Advisor Relationship Specialty Start Date End Date Samm Thompson MD PCP - General Family Medicine 05/30/12 Tom Gonzalez [address] [place] [address] Primary Staff Physician Cardiology 12/02/18 Zahra Pierre MD [address] [place] [address] Primary Staff Physician Cardiology 04/26/23 Virgil Carrillo MD [address] [place] [place] [address] Primary Staff Physician Cardiology 10/29/23 Efren Brady MD [address] [place] [address] Primary Staff Physician Cardiology 12/26/23 Carmela Fernandes MD [address] [place] [address] Primary Staff Physician Cardiology 01/10/24 Guest Advisor Relationship Specialty Start Date End Date Samm Thompson MD PCP - General Family Medicine 05/30/12 Tom Gonzalez [address] [place], [place] [address] [address] Primary Staff Physician Cardiology 12/02/18 Zahra Pierre MD [address] [place] [address] Primary Staff Physician Cardiology 04/26/23 Virgil Carrillo MD [address] [place] [address] Primary Staff Physician Cardiology 10/29/23 Efren Brady MD [address] [place] [address] Primary Staff Physician Cardiology 12/26/23 Carmela Fernandes MD [address] [place] [address] Primary Staff Physician Cardiology 01/10/24 Guest Advisor Relationship Specialty Start Date End Date Samm Thompson MD PCP - General Family Medicine 05/30/12 Tom Gonzalez [address] [place] [address] Primary Staff Physician Cardiology 12/02/18 Zahra Pierre MD [address] [place] [address] Primary Staff Physician Cardiology 04/26/23 Virgil Carrillo MD [address] [place] [address] Primary Staff Physician Cardiology 10/29/23 Efren Brady MD [address] [place] [address] Primary Staff Physician Cardiology 12/26/23 Carmela Fernandes MD [address] [place] [address] Primary Staff Physician Cardiology 01/10/24 Guest Advisor Relationship Specialty Start Date End Date Samm Thompson MD PCP - General Family Medicine 05/30/12 Tom Gonzalez [address] [place] [address] Primary Staff Physician Cardiology 12/02/18 Zahra Pierre MD [address] [place] [address] Primary Staff Physician Cardiology 04/26/23 Virgil Carrillo MD [address] [place] [address] Primary Staff Physician Cardiology 10/29/23 Efren Brady MD [address] [facility] [place] [address] Primary Staff Physician Cardiology 12/26/23 Carmela Fernandes MD [address] [place] [phone] Primary Staff Physician Cardiology 01/10/24 Guest Advisor Relationship Specialty Start Date End Date Samm Thompson MD PCP - General Family Medicine 05/30/12 Tom Gonzalez [address] [place], [place] [address] [address] Primary Staff Physician Cardiology 12/02/18 Zahra Pierre MD [address] [place] [phone] Primary Staff Physician Cardiology 04/26/23 Virgil Carrillo MD [address] [place] [address] Primary Staff Physician Cardiology 10/29/23 Efren Brady MD [address] [place], [place] 0249[address] Primary Staff Physician Cardiology 12/26/23 Carmela Fernandes MD [address] [place] [address] Primary Staff Physician Cardiology 01/10/24 Guest Advisor Relationship Specialty Start Date End Date Samm Thompson MD PCP - General Family Medicine 05/30/12 Tom Gonzalez [address] [place] [address] Primary Staff Physician Cardiology 12/02/18 Zahra Pierre MD [address] [place] [address] Primary Staff Physician Cardiology 04/26/23 Virgil Carrillo MD [address] [place] [phone] Primary Staff Physician Cardiology 10/29/23 Efren Brady MD [address] [place] [address] Primary Staff Physician Cardiology 12/26/23 Carmela Fernandes MD [address] [place] [address] Primary Staff Physician Cardiology 01/10/24 Guest Advisor Relationship Specialty Start Date End Date Samm Thompson MD [address] [place] [address] PCP - General Family Medicine 06/29/19 Guest Advisor Relationship Specialty Start Date End Date Samm Thompson MD [address] [place] [address] PCP - General Family Medicine 06/29/19 Guest Advisor Relationship Specialty Start Date End Date Samm Thompson MD [address] [place] [address] PCP - General Family Medicine 06/29/19 Guest Advisor Relationship Specialty Start Date End Date Samm Thompson MD [address] [place] [address] PCP - General Family Medicine 06/29/19 Guest Advisor Relationship Specialty Start Date End Date Samm Thompson MD [address] [place] [address] PCP - General Family Medicine 06/29/19 Guest Advisor Relationship Specialty Start Date End Date Samm Thompson MD [address] [place] [address] PCP - General Family Medicine 06/29/19 Guest Advisor Relationship Specialty Start Date End Date Samm Thompson MD [address] [place] [address] PCP - General Family Medicine 06/29/19 Guest Advisor Relationship Specialty Start Date End Date Samm Thompson MD [address] [place] [address] PCP - General Family Medicine 06/29/19 Guest Advisor Relationship Specialty Start Date End Date Samm Thompson MD [address] [place] [address] PCP - General Family Medicine 06/29/19 Guest Advisor Relationship Specialty Start Date End Date Samm Thompson MD [address] [place] [address] PCP - General Family Medicine 06/29/19 Guest Advisor Relationship Specialty Start Date End Date Samm Thompson MD [address] [place] [address] PCP - General Family Medicine 06/29/19 Guest Advisor Relationship Specialty Start Date End Date Samm Thompson MD [address] [place] [address] PCP - General Family Medicine 02/26/24 Guest Advisor Relationship Specialty Start Date End Date Samm Thompson MD [address] [place] [address] PCP - General Family Medicine 02/26/24 Guest Advisor Relationship Specialty Start Date End Date Samm Thompson MD [address] [place] [address] PCP - General Family Medicine 06/29/19 Guest Advisor Relationship Specialty Start Date End Date Samm Thompson MD [address] [place] [address] PCP - General Family Medicine 02/26/24 Guest Advisor Relationship Specialty Start Date End Date Samm Thompson MD [address] [place] [id number] PCP - General Family Medicine 02/26/24 Guest Advisor Relationship Specialty Start Date End Date Samm Thompson MD [address] [place] [address] PCP - General Family Medicine 02/26/24 Guest Advisor Relationship Specialty Start Date End Date Samm Thompson MD [address] [place] [address] PCP - General Family Medicine 02/26/24 Guest Advisor Relationship Specialty Start Date End Date Samm Thompson MD [address] [place] [address] PCP - General Family Medicine 02/26/24 Guest Advisor Relationship Specialty Start Date End Date Samm Thompson MD [address] [place] [address] PCP - General Family Medicine 02/26/24 Guest Advisor Relationship Specialty Start Date End Date Samm Thompson MD [address] [place] [address] PCP - General Family Medicine 02/26/24 Guest Advisor Relationship Specialty Start Date End Date Samm Thompson MD PCP - General Family Medicine 02/26/24 Guest Advisor Relationship Specialty Start Date End Date Samm Thompson MD PCP - General Family Medicine 02/26/24 Guest Advisor Relationship Specialty Start Date End Date Samm Thompson MD PCP - General Family Medicine 02/26/24 Guest Advisor Relationship Specialty Start Date End Date Samm Thompson MD PCP - General Family Medicine 02/26/24 Guest Advisor Relationship Specialty Start Date End Date Samm Thompson MD PCP - General Family Medicine 02/26/24 Guest Advisor Relationship Specialty Start Date End Date Samm Thompson MD [address] [place] [address] PCP - General Family Medicine 12/03/24 Guest Advisor Relationship Specialty Start Date End Date Samm Thompson MD [address] [place] [phone] PCP - General Family Medicine 12/03/24 Guest Advisor Relationship Specialty Start Date End Date Samm Thompson MD PCP - General Family Medicine 05/30/12 Tom Gonzalez [address] [facility] [place] [address] Primary Staff Physician Cardiology 12/02/18 Zahra Pierre MD [address] [place] [phone] Primary Staff Physician Cardiology 04/26/23 Virgil Carrillo MD [address] [place] [address] Primary Staff Physician Cardiology 10/29/23 Efren Brady MD [address] [place] [address] Primary Staff Physician Cardiology 12/26/23 Carmela Fernandes MD [address] [place] [address] Primary Staff Physician Cardiology 01/10/24 Guest Advisor Relationship Specialty Start Date End Date Samm Thompson MD PCP - General Family Medicine 05/30/12 Tom Gonzalez [address] [place] [address] Primary Staff Physician Cardiology 12/02/18 Zahra Pierre MD [address] [place] [address] Primary Staff Physician Cardiology 04/26/23 Virgil Carrillo MD [address] [place], [place] [phone] Primary Staff Physician Cardiology 10/29/23 Efren Brady MD [address] [place] [address] Primary Staff Physician Cardiology 12/26/23 Carmela Fernandes MD [address] [place] [address] Primary Staff Physician Cardiology 01/10/24 Guest Advisor Relationship Specialty Start Date End Date Samm Thompson MD PCP - General Family Medicine 05/30/12 Tom Gonzalez [address] [place] [address] Primary Staff Physician Cardiology 12/02/18 Zahra Pierre MD [facility] [place] [address] Primary Staff Physician Cardiology 04/26/23 Virgil Carrillo MD [address] [place], [place] 9095995 Primary Staff Physician Cardiology 10/29/23 Efren Brady MD [address] [place], [place] 7234795 Primary Staff Physician Cardiology 12/26/23 Carmela Fernandes MD [address] [place] [id number] Primary Staff Physician Cardiology 01/10/24 Guest Advisor Relationship Specialty Start Date End Date Samm Thompson MD PCP - General Family Medicine 05/30/12 Tom Gonzalez [address] [place], [place] [address] [address] Primary Staff Physician Cardiology 12/02/18 Zahra Pierre MD [address] [place] [phone] Primary Staff Physician Cardiology 04/26/23 Virgil Carrillo MD [facility] [place] [phone] Primary Staff Physician Cardiology 10/29/23 Efren Brady MD [address] [place] [phone] Primary Staff Physician Cardiology 12/26/23 Carmela Fernandes MD [facility] [place] [address] Primary Staff Physician Cardiology 01/10/24 Guest Advisor Relationship Specialty Start Date End Date Samm Thompson MD [address] [place] [address] PCP - General Family Medicine 03/24/25 Guest Advisor Relationship Specialty Start Date End Date Samm Thompson MD [address] [place] [address] PCP - General Family Medicine 03/24/25 Guest Advisor Relationship Specialty Start Date End Date Samm Thompson MD PCP - General Family Medicine 05/30/12 Tom Gonzalez [place] [address] [facility] [place] [address] Primary Staff Physician Cardiology 12/02/18 Zahra Pierre MD [address] [place], [place] 1752295 Primary Staff Physician Cardiology 04/26/23 Virgil Carrillo MD [address] [place], [place] 9357195 Primary Staff Physician Cardiology 10/29/23 Efren Brady MD [address] [place] [address] Primary Staff Physician Cardiology 12/26/23 Carmela Fernandes MD [address] [place] [address] Primary Staff Physician Cardiology 01/10/24 FOR RECORDS [...] PRIMARY CLINICAL RECORDS. [facility] [employer] [facility]. provides no warranty or guarantee of the accuracy or completeness of information in this document.
== END 2025-05-12 13:59 | disposition home or self-care (01) ==
LOC: US 13:58
PROVIDERS: PCP Family Medicine; Visit Provider Family Medicine
DX: K72.90 Hepatic failure, unspecified without coma (principal); R18.8 Other ascites; I71.40 Abdominal aortic aneurysm, without rupture, unspecified
CPT/HCPCS: 76700

== ENCOUNTER 2025-06-03 13:33 | Outpatient (RCR) | payer MEDICARE, OTHER, SELFPAY ==
[2025-05-28] MEDS: FERRIC CARBOXYMALTOSE 750 MG in 0.9 % SODIUM CHLORIDE 250 ML 795 MG IV (13:51)
[2025-05-28 15:51] VITALS: BP 112/74; PULSE 74; TEMP 36.4; O2SAT 97
[2025-06-03] MEDS: FERRIC CARBOXYMALTOSE 750 MG in 0.9 % SODIUM CHLORIDE 250 ML 795 MG IV (13:45)
== END 2025-06-15 23:59 | disposition home or self-care (01) ==
LOC: INF 13:33
PROVIDERS: PCP Family Medicine; Visit Provider Family Medicine
DX: D50.9 Iron deficiency anemia, unspecified (principal)
CPT/HCPCS: 96365; J1439